=== PATIENT | female | born 1955 | race Caucasian/White ===

== ENCOUNTER 2019-06-05 22:03 | Emergency (ER) | payer MEDICARE, MEDICAID, SELFPAY ==
--- NOTE | ~2019-06-05 | XR_ITS ---
EXAMINATION: XR chest 2V DATE: 06/05/2019 23:19 INDICATION: Chest tightness and shortness of breath TECHNIQUE: AP and lateral views of the chest are obtained. COMPARISON: 12/03/2018 FINDINGS: The lungs are free of acute opacities. There is no pleural effusion or pneumothorax. The ca rdiomediastinal silhouette is normal. There is moderate thoracic spondylosis. IMPRESSION: 1. No acute cardiopulmonary abnormality. Reviewed, dictated and finalized at location A. 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
--- NOTE | ~2019-06-05 | CT_ITS ---
EXAMINATION: CTA chest PE protocol EXAM DATE: 06/06/2019 01:19 INDICATION: Chest pain. Shortness of breath. Recent foot surgery. TECHNIQUE: Spiral CTA of the chest (pulmonary arteries) was performed with 100 cc Omnipaque 350 intr avenous contrast injection. Images were acquired during the pulmonary arterial phase. Coronal maxi mum intensity projection 3D-reconstructions were created by the technologist on dedicated workstation . Axial, coronal and sagittal reformatted images were reviewed. The dose-length product (DLP) for t his examination was 919.12 mGy-cm. The exposure was tailored according to patient size (auto mA exp osure control), and iterative reconstruction (ASIR) was used as additional dose reduction technique. Comparison is made to prior examination from 12/14/2017. FINDINGS: Pulmonary arteries are well opacified and without intraluminal filling defects. No thora cic aortic dissection. The lungs are clear. There are no pleural or pericardial effusions. Trach eobronchial tree is patent. There is no mediastinal, hilar or axillary lymphadenopathy. There is no pneumothorax. Heart normal in size. No evidence of coronary arterial calcification. There are cholecystectomy clips. Small thyroid nodules with calcifications. There is moderate thoracic spondy losis without osteoblastic or osteolytic lesions identified. Moderate sized thoracic endplate osteoph ytes. Tiny tracheal diverticulum. IMPRESSION: 1. No pulmonary emboli or acute cardiothoracic findings. 2. Small thyroid nodules. Reviewed, dictated and finalized at location B. PING PROCESSOR
[2019-06-05 22:05] VITALS: BP 121/71; PULSE 78; RESP 16; TEMP 36.8; O2SAT 99
--- NOTE | 2019-06-05 22:14 | ECG_ITS ---
Measurements Intervals [place] Rate: 80 P: -18 CT: 116 QRS: 5 QRSD: 79 T: 29 QT: 363 QTc: 419 Interpretive Statements SINUS RHYTHM WITH SHORT CT INTERVAL EARLY PRECORDIAL R/S TRANSITION BORDERLINE ECG Electronically Signed On 06-06-2019 6:58:48 TRANSIT PROOF MACHINE OPERATOR by Jonatan Parra D.O.
[2019-06-05 22:47] LABS: Basophils Percent Auto 0.1 % (0.2-1.2); Hematocrit 40.2 % (37.0-47.0); Hemoglobin 12.5 g/dL (12.0-15.0); Immature Granulocyte Absolute 0.05 K/mm3 (0.00-0.031); Immature Granulocyte Percent A 0.3 % (0-0.5); Lymphocytes Absolute Auto 1.57 K/mm3 (0.9-3.2); Lymphocytes Percent Auto 10.2 % (18.3-44.2); Mean Corpuscular HGB Conc 31.1 g/dl (32-36); Mean Corpuscular Hemoglobin 28.5 pg (26-34); Mean Corpuscular Volume 91.6 fl (80-100); Monocytes Absolute Auto 0.9 K/mm3 (0.1-0.6); Monocytes Percent Auto 5.6 % (2.6-8.5); Neutrophils Absolute Auto 12.9 K/mm3 (1.3-6.7); Neutrophils Percent Auto 83.8 % (45.5-73.1); Platelet Count Result 302 k/mm3 (150-375); Red Blood Count 4.39 M/mm3 (4.2-5.4); Red Cell Distribution Width 14.8 % (11.5-14.5); White Blood Count 15.4 K/mm3 (4.5-10.0)
[2019-06-05 22:55] LABS: Prothrombin Time 12.8 Seconds (11.1-14.7)
[2019-06-05 22:56] LABS: Partial Thromboplastin Time 24.3 SECONDS (22.3-36.8)
[2019-06-05 22:59] LABS: Blood Urea Nitrogen 25 mg/dL (7-17); Calcium 9.2 mg/dL (8.4-10.2); Carbon Dioxide 27 mmol/L (22-30); Chloride 103 mmol/L (98-107); Estimated CRCL calculation 90 ml/min; Estimated Glomerular Filt Rate > 60; Glucose 239 mg/dL (65-105); Potassium 4.6 mmol/L (3.4-5.0); Sodium 140 mmol/L (137-145)
[2019-06-05 23:11] LABS: Troponin I < 0.012 ng/mL (0.000-0.034)
[2019-06-06 00:02] VITALS: BP 110/64; PULSE 82; RESP 16; TEMP 36.6; O2SAT 99
--- NOTE | 2019-06-06 00:02 | ED.SOB ---
HPI - SOB/Dyspnea General Chief Complaint: Shortness of Breath/Dyspnea Stated Complaint: cp Time Seen by Provider: 06/06/19 00:02 Source: patient and RN notes reviewed Mode of arrival: other Limitations: no limitations History of Present Illness HPI Narrative: Pt is a 64 y/o female who presents to the ED with c/o SOB that began at 7 PM yesterday after her surgery. Pt states that her sx are worsened when she lays flat. Pt also reports chest pain. She states her pain is worsened whenever she lays flat. She notes that whenever she lays flat, her chest pain becomes heavy. She notes that her pain will last for 5 minutes. Pt has a hx of PE. Pt had two tendons repair surgery on her left leg by Dr. Mensah at [facility]. Pt had to discontinue her Xaralto for a week d/t the surgery. Pt states that she starts her Xarelto tomorrow. MD elicited complaint: shortness of breath (with chest pain) Onset (ago): hour(s) Exacerbating factors: lying flat Associated symptoms: chest pain Related Data Allergies Allergy/AdvReac Type Severity Reaction Status Date / Time lorazepam Allergy Severe Swelling Verified 06/05/19 23:50 metoclopramide Allergy Intermediate Unknown Verified 06/05/19 23:50 levofloxacin Allergy Mild Hives / Verified 06/05/19 23:50 Red Face ceftriaxone Allergy Unknown SOB Verified 06/05/19 23:50 cephalexin Allergy Unknown Unknown Verified 06/05/19 23:50 Cephalosporins Allergy Unknown Unknown Verified 06/05/19 23:50 chlorhexidine Allergy Unknown BLISTERING Verified 06/05/19 23:50 oxycodone AdvReac Unknown Unknown Verified 06/05/19 23:50 CEFTRIAXONE SODIUM Allergy Severe Dyspnea / Uncoded 06/05/19 23:50 SOB Review of Systems Review of Systems: All systems reviewed & are unremarkable except as noted in HPI and below Cardiovascular: Cardiovascular: Reports chest pain Respiratory: Respiratory: Reports dyspnea PMFSH Past Medical History Medical History (Updated 06/06/19 @ 02:19 by Felicitas Arnold MD) Anxiety Breast cancer CHF (congestive heart failure) Depression DVT (deep venous thrombosis) Hypothyroid Kidney stone Multiple thyroid nodules Peripheral neuropathy Pulmonary embolism positive for coagulation workup Restless leg syndrome Sleep apnea with CPAP Type II diabetes mellitus 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) Surgical History Surgical History (Updated 06/06/19 @ 02:19 by Felicitas Arnold MD) H/O hernia repair H/O mastectomy bilateral History of cardiac catheterization no CAD noted History of right oophorectomy History of total right knee replacement Hx of cholecystectomy S/P ureteral stent placement Social History Social History Smoking status: Never smoker Gender identity (if verbalized by the patient): Female Exam Const: General: cooperative, no acute distress and alert Nutritional Appearance: obese Orientation/consciousness: patient oriented x3 Limitations: no limitations HENMT: Mouth: Yes lip normal and Yes moist mucous membranes Throat: other (throat normal) Resp: Effort & Inspection: normal respiratory effort Auscultation: clear to auscultation bilaterally Cardio: Rate: regular rate Rhythm: regular rhythm GI: GI Palp: Yes Soft to palpation and No Tenderness to palpation present (GI) Auscultation: normal bowel sounds Skin: General skin exam: normal color Neuro: General: patient oriented x3 Cognition (Neuro): normal cognition Speech: normal speech Extrem: General: normal to inspection, full ROM and no clubbing, cyanosis or edema Psych: Mental Status: mental status grossly normal Affect: normal affect Attitude: cooperative Course Course Emergency Course: Patient presents with complaints of chest pain and feeling short of breath after having had foot surgery today. Patient has history of pulmonary embolism and is normally on Xarelto. Patient has been off anticoagulation for a week for her foot surgery that she had today. Patient was worried about possibility of
[2019-06-06 01:53] LABS: Troponin I < 0.012 ng/mL (0.000-0.034)
[2019-06-06 02:30] VITALS: BP 112/65; PULSE 71; RESP 16; O2SAT 100
== END 2019-06-06 02:45 | disposition home or self-care (01) ==
PROVIDERS: Emergency Provider Emergency Medicine; PCP Internal Medicine
DX: R07.9 Chest pain, unspecified (principal); F41.9 Anxiety disorder, unspecified; I50.9 Heart failure, unspecified; F32.9 Major depressive disorder, single episode, unspecified; Z86.718 Personal history of other venous thrombosis and embolism; E03.9 Hypothyroidism, unspecified; Z87.442 Personal history of urinary calculi; E11.42 Type 2 diabetes mellitus with diabetic polyneuropathy; Z86.711 Personal history of pulmonary embolism; G25.81 Restless legs syndrome; G47.30 Sleep apnea, unspecified; Z87.440 Personal history of urinary (tract) infections; Z85.3 Personal history of malignant neoplasm of breast; Z90.13 Acquired absence of bilateral breasts and nipples; Z96.651 Presence of right artificial knee joint; Z79.01 Long term (current) use of anticoagulants; Z98.890 Other specified postprocedural states
CPT/HCPCS: 36415; 71046; 71275; 80048; 84484; 85025; 85610; 85730; 93005; 99284; Q9967

== ENCOUNTER 2019-12-27 22:34 | Emergency (ER) | payer MEDICARE, MEDICAID, SELFPAY ==
--- NOTE | ~2019-12-27 | XR_ITS ---
XR chest 2V DATE: 12/27/2019 23:16 INDICATION: Chest pressure/tightness for one day. Upper back pain. History of congestive heart failur e and pulmonary embolism. TECHNIQUE: PA and lateral views COMPARISON: None FINDINGS: Heart size is within normal range. No hilar or mediastinal enlargement. No pulmonary infiltrate or consolidation, pleural effusion or pulmonary vascular congestion or pneumo thorax. Degenerative spurring of the thoracic spine. Surgical clips, right upper quadrant, consistent with cholecystectomy. IMPRESSION: No active cardiopulmonary disease Status post cholecystectomy Reviewed, dictated and finalized at location A.
--- NOTE | ~2019-12-27 | CT_ITS ---
EXAMINATION: CTA chest PE protocol DATE: 12/28/2019 02:19 INDICATION: Chest pain TECHNIQUE: Computed tomography angiography (CTA) of the chest was performed with 100 mL Omnipaque-350 intravenous contrast timed to evaluate the pulmonary arteries. Coronal maximum intensity projection 3D-reconstructions were created by the technologist. The dose-length product (DLP) was 973.06 mGy-cm. Automated exposure control and iterative reconstruction technique were employed. COMPARISON: 06/06/2019 FINDINGS: The pulmonary arteries are well-opacified. No pulmonary embolism is identified. There is mi ld dependent atelectasis. Grouped nodules are present in the medial aspect of the left lower lobe at the site of prior infection. No acute airspace opacities are identified. There is no pleural effusion or pneumothorax. No pathologically enlarged thoracic lymph nodes are identified. The heart size is n ormal. The gallbladder is surgically absent. Small calcified thyroid nodules are stable. There is mod erate thoracic spondylosis. IMPRESSION: 1. No pulmonary embolism or acute cardiopulmonary abnormality. Reviewed, dictated and finalized at location A.
[2019-12-27 22:38] VITALS: BP 143/67; PULSE 98; RESP 22; TEMP 36.5; O2SAT 100
--- NOTE | 2019-12-27 22:45 | ECG_ITS ---
Measurements Intervals [employer] Rate: 96 P: 32 NE: 123 QRS: 1 QRSD: 92 T: 52 QT: 334 QTc: 424 Interpretive Statements SINUS RHYTHM BASELINE ARTIFACT- I, III, AVR, AVL NORMAL ECG Electronically Signed On 12-28-2019 6:47:58 CDT by Jonatan Parra D.O.
[2019-12-27 23:16] LABS: Basophils Percent Auto 0.4 % (0.2-1.2); Eosinophils Absolute Auto 0.3 K/mm3 (0-0.3); Hematocrit 43.8 % (37.0-47.0); Hemoglobin 13.6 g/dL (12.0-15.0); Immature Granulocyte Absolute 0.05 K/mm3 (0.00-0.031); Immature Granulocyte Percent A 0.4 % (0-0.5); Lymphocytes Absolute Auto 3.19 K/mm3 (0.9-3.2); Lymphocytes Percent Auto 28.5 % (18.3-44.2); Mean Corpuscular HGB Conc 31.1 g/dl (32-36); Mean Corpuscular Hemoglobin 28.6 pg (26-34); Mean Platelet Volume 9.9 fl (7.4-10.4); Monocytes Absolute Auto 0.7 K/mm3 (0.1-0.6); Monocytes Percent Auto 6.1 % (2.6-8.5); Neutrophils Absolute Auto 6.9 K/mm3 (1.3-6.7); Neutrophils Percent Auto 61.6 % (45.5-73.1); Platelet Count Result 339 k/mm3 (150-375); Red Blood Count 4.76 M/mm3 (4.2-5.4); Red Cell Distribution Width 14.4 % (11.5-14.5); White Blood Count 11.2 K/mm3 (4.5-10.0)
[2019-12-27 23:27] LABS: INR 1.3; Partial Thromboplastin Time 30.3 SECONDS (22.3-36.8); Prothrombin Time 16.1 Seconds (11.1-14.7)
[2019-12-27 23:31] LABS: Anion Gap 7 mmol/L (8-16); Blood Urea Nitrogen 20 mg/dL (7-17); Calcium 9.7 mg/dL (8.4-10.2); Carbon Dioxide 31 mmol/L (22-30); Chloride 102 mmol/L (98-107); Estimated CRCL calculation 81 ml/min; Estimated Glomerular Filt Rate > 60; Glucose 196 mg/dL (65-105); Potassium 4.5 mmol/L (3.4-5.0); Sodium 140 mmol/L (137-145)
[2019-12-27 23:41] LABS: Troponin I < 0.012 ng/mL (0.000-0.034)
[2019-12-27 23:43] VITALS: BP 141/59; PULSE 93; PULSE 99; RESP 19; TEMP 37.2; O2SAT 100
--- NOTE | 2019-12-28 00:41 | ED.CHESTPAIN ---
HPI - Chest Pain General Chief Complaint: Chest Pain Stated Complaint: upper back pain, cp, sob Time Seen by Provider: 12/28/19 00:24 Source: patient Mode of arrival: ambulatory Limitations: no limitations History of Present Illness HPI narrative: This patient is a 64 year old female with history of morbid obesity, depression, PE, chf who presents for evaluation of upper back pain and chest pain. She states for several weeks she has been dealing with constant nausea and dysphagia . She has been taking zofran intermittently for the nausea. She reports she feels like food causes mid chest pain when she is eating but it does go down. She rarely has vomiting with her nausea. She is scheduled for colonoscopy and upper endoscopy with DR. Jensen in 10 days. She has come to ER today because for 2 days she has been having constant sharp upper back pain. She also reports she feels like she is being squeezed from chest to her back. Related Data Allergies Allergy/AdvReac Type Severity Reaction Status Date / Time lorazepam Allergy Severe Swelling Verified 12/27/19 23:46 metoclopramide Allergy Intermediate Unknown Verified 12/27/19 23:46 levofloxacin Allergy Mild Hives / Verified 12/27/19 23:46 Red Face ceftriaxone Allergy Unknown SOB Verified 12/27/19 23:46 cephalexin Allergy Unknown Unknown Verified 12/27/19 23:46 Cephalosporins Allergy Unknown Unknown Verified 12/27/19 23:46 chlorhexidine Allergy Unknown BLISTERING Verified 12/27/19 23:46 oxycodone AdvReac Unknown Unknown Verified 12/27/19 23:46 CEFTRIAXONE SODIUM Allergy Severe Dyspnea / Uncoded 12/27/19 23:46 SOB Review of Systems Review of Systems: All systems reviewed & are unremarkable except as noted in HPI and below Constitutional: Constitutional: Denies chills and Denies fever(s) Cardiovascular: Cardiovascular: Reports chest pain and Denies radiating jaw, neck or arm pain Gastrointestinal: Gastrointestinal: Denies diarrhea, Reports nausea and Reports vomiting Musculoskeletal: Musculoskeletal: Reports back pain Neurologic: Reports dizziness PMFSH Past Medical History Medical History (Updated 12/28/19 @ 03:39 by Emelyn Mari MD) Anxiety Breast cancer CHF (congestive heart failure) Depression DVT (deep venous thrombosis) Hypothyroid Kidney stone Multiple thyroid nodules Peripheral neuropathy Pulmonary embolism positive for coagulation workup Restless leg syndrome Sleep apnea with CPAP Type II diabetes mellitus 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) Surgical History Surgical History (Updated 06/06/19 @ 02:19 by Felicitas Arnold MD) H/O hernia repair H/O mastectomy bilateral History of cardiac catheterization no CAD noted History of right oophorectomy History of total right knee replacement Hx of cholecystectomy S/P ureteral stent placement Social History Social History Smoking status: Never smoker Gender identity (if verbalized by the patient): Female Exam Const: General: no acute distress and alert Nutritional Appearance: obese Orientation/consciousness: patient oriented x3 HENMT: Head: normocephalic and atraumatic Face and sinus: face symmetric Eyes: Pupils: Equal, round and reactive pupils present EOM: EOMs intact bilaterally Chest: Chest palpation & inspection: normal inspection of the chest Resp: Effort & Inspection: normal respiratory effort and no retractions Auscultation: clear to auscultation bilaterally Cardio: Rate: regular rate Rhythm: regular rhythm GI: GI Palp: Yes Soft to palpation, No Tenderness to palpation present (GI) and No Guarding due to palpation present (GI) Auscultation: normal bowel sounds Skin: General skin exam: normal color Rashes: no rashes Neuro: General: patient oriented x3 and moves all extremities Extrem: General: normal to inspection Course Reevaluation(s) Reevaluation #1: I discussed with patient that no significant abnormalities found. She will follow up wit
[2019-12-28] MEDS: ONDANSETRON INJ 4 MG/2 ML VIAL IV PUSH (01:00)
[2019-12-28] MEDS: PANTOPRAZOLE SODIUM IV 40 MG VIAL IV PUSH (01:00)
[2019-12-28] MEDS: LACTATED RINGERS 1,000 ML 999 ML IV CONT (01:00)
[2019-12-28 01:36] LABS: Alanine Aminotransferase 28 U/L (4-35); Albumin Level 4.3 g/dL (3.5-5.1); Alkaline Phosphatase 101 U/L (38-126); Aspartate Amino Transferase 48 U/L (14-36); Bilirubin,Total 0.5 mg/dL (0.2-1.3); Lipase 91 U/L (23-300); Magnesium 1.8 mg/dL (1.6-2.3)
[2019-12-28 01:37] VITALS: BP 125/81; PULSE 91; RESP 12; O2SAT 99
[2019-12-28 01:46] VITALS: BP 123/76; PULSE 89
[2019-12-28 01:47] VITALS: BP 123/81; PULSE 83
[2019-12-28 01:50] VITALS: BP 141/91; PULSE 102
[2019-12-28] MEDS: BELLADONNA ALK/PHENOB ELIX 10 ML, MAG HYDROX/ALUMINUM HYD/SIMETH 30 ML, LIDOCAINE HCL 2... PO (01:54)
[2019-12-28 02:57] LABS: Troponin I < 0.012 ng/mL (0.000-0.034)
[2019-12-28 03:00] VITALS: BP 145/88; PULSE 87; RESP 19; O2SAT 99
[2019-12-28 03:45] VITALS: BP 133/78; PULSE 77; RESP 17; O2SAT 95
== END 2019-12-28 03:45 | disposition home or self-care (01) ==
PROVIDERS: Emergency Provider General Practice; PCP Internal Medicine
DX: R07.89 Other chest pain (principal); R13.10 Dysphagia, unspecified; E11.42 Type 2 diabetes mellitus with diabetic polyneuropathy; I50.9 Heart failure, unspecified; E66.01 Morbid (severe) obesity due to excess calories; Z68.43 Body mass index [BMI] 50.0-59.9, adult; E03.9 Hypothyroidism, unspecified; Z85.3 Personal history of malignant neoplasm of breast; G47.30 Sleep apnea, unspecified; Z86.718 Personal history of other venous thrombosis and embolism; Z86.711 Personal history of pulmonary embolism; Z87.442 Personal history of urinary calculi; Z87.440 Personal history of urinary (tract) infections; Z90.13 Acquired absence of bilateral breasts and nipples; Z96.651 Presence of right artificial knee joint
CPT/HCPCS: 36415; 71046; 71275; 80048; 80076; 83690; 83735; 84484; 85025; 85380; 85610; 85730; 93005; 96361; 96374; 96375; 99284; A9270; C9113; J0131; J2405; J7120; Q9967

== ENCOUNTER 2020-01-07 00:42 | Outpatient (CLI) | payer MEDICARE, MEDICAID, SELFPAY ==
[2020-01-07 17:26] LABS: SARS-CoV-2 RNA PCR Negative
== END 2020-01-07 00:43 | disposition home or self-care (01) ==
LOC: ANHCOVIDDT 00:43
PROVIDERS: PCP Internal Medicine; Visit Provider Internal Medicine Gastroenterology
DX: Z01.812 Encounter for preprocedural laboratory examination (principal); Z11.59 Encounter for screening for other viral diseases
CPT/HCPCS: 87635; C9803; U0003

== ENCOUNTER 2020-01-09 00:55 | Day surgery (SDC) | payer MEDICARE, MEDICAID, SELFPAY ==
[2020-01-06 15:28] VITALS: BMI 54.8
--- NOTE | 2020-01-08 13:16 | WPDANESEPPF ---
Anes - Initial Pre Proc Eval Procedure: Operation Date: 01/09/20 09:00 Proposed Procedures p Esophagogastroduodenoscopy & Colonoscopy - Genaro Jensen DO Date/Time: 01/08/20 13:16 Surgeon: Genaro Jensen DO Pre Op Diagnosis: dysphagia, altered bowel function Patient Data Age: 64 Gender: F Height: 1.55 m Weight: 131.8 kg Allergies Allergy/AdvReac Type Severity Reaction Status Date / Time ceftriaxone Allergy Severe SOB Verified 01/09/20 07:51 cephalexin Allergy Severe Difficulty Verified 01/09/20 07:51 Breathing Cephalosporins Allergy Severe Difficulty Verified 01/09/20 07:51 Breathing lorazepam Allergy Severe Swelling Verified 01/09/20 07:51 metoclopramide Allergy Intermediate Other Verified 01/09/20 07:51 chlorhexidine Allergy Mild BLISTERING Verified 01/09/20 07:51 levofloxacin Allergy Mild Hives / Verified 01/09/20 07:51 Red Face oxycodone AdvReac Mild Vomiting Verified 01/09/20 07:51 Home Medications Medication Instructions Recorded Confirmed Type ondansetron HCl [Zofran] 4 mg PO Q6H PRN #7 tablet 12/28/19 01/06/20 Rx pantoprazole 40 mg PO HS 28 Days #28 tablet 12/28/19 01/06/20 Rx amitriptyline 25 mg PO DAILY 01/06/20 01/06/20 History enoxaparin 120 mg SUBCUT DAILY 01/06/20 01/06/20 History exemestane 25 mg PO DAILY 01/06/20 01/06/20 History hydrocodone-acetaminophen 1 tablet PO Q6-8H PRN 01/06/20 01/06/20 History insulin glargine [Lantus Solostar 50 unit SUBCUT DAILY 01/06/20 01/06/20 History U-100 Insulin] insulin lispro 26 unit SUBCUT TID 01/06/20 01/06/20 History lisinopril 20 mg PO DAILY 01/06/20 01/06/20 History naloxone [Narcan] 4 mg INTRANASAL PRN PRN 01/06/20 01/06/20 History oxybutynin chloride 5 mg PO BID 01/06/20 01/06/20 History pen needle, diabetic [BD 01/06/20 01/06/20 History Ultra-Fine Short Pen Needle] rivaroxaban [Xarelto] 20 mg PO DAILY 01/06/20 01/06/20 History ropinirole 5 mg PO DAILY 01/06/20 01/06/20 History Patient hx anesthesia problems: none Family hx anesthesia problems: none PMFSH Past Medical History Medical History (Updated 12/29/19 @ 00:00 by Luis Hernandez) Anxiety Breast cancer CHF (congestive heart failure) Depression DVT (deep venous thrombosis) Hypothyroid Kidney stone Multiple thyroid nodules Peripheral neuropathy Pulmonary embolism positive for coagulation workup Restless leg syndrome Sleep apnea with CPAP Type II diabetes mellitus 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) Surgical History Surgical History (Updated 06/06/19 @ 02:19 by Felicitas Arnold MD) H/O hernia repair H/O mastectomy bilateral History of cardiac catheterization no CAD noted History of right oophorectomy History of total right knee replacement Hx of cholecystectomy S/P ureteral stent placement Social History Social History Smoking packs per day: 0.5 Smoking cigarettes per day: 10.0 Years smoked: 3 Smoking pack-years: 1.50 Smoking status: Former smoker Tobacco type: cigarettes Additional smoking assessment comments: SMOKED FOR 3 YEARS Alcohol intake: never Substance use: never Substance use type: does not use Living arrangements: with family Gender identity (if verbalized by the patient): Female Spiritual care concerns: No Anes - Eval Final PreProcedure Day of Procedure 01/08/20 13:16 Patient weight: super morbidly obese Heart: regular rate and rhythm Lungs: clear to auscultation and normal air movement Airway: Mallampati scale class III Neurological: alert and oriented Last oral intake: >/= 8 hours ASA classification: IV Emergent: no Anesthetic plan: proceed Anesthesia type and monitoring: general GIVS and standard monitoring Informed Consent: The patient's anesthetic plan and its attendant risks and benefits were discussed with the patient/family/POA. Questions were solicited and answers provided to the satisfaction of the patient/family/POA.
[2020-01-09 07:44] VITALS: BP 143/90; PULSE 100; RESP 20; TEMP 36.9; O2SAT 99; BMI 56.4
[2020-01-09 08:09] LABS: Glucose Point of Care 113 (65-105)
[2020-01-09] MEDS: LACTATED RINGERS 1,000 ML 150 ML IV CONT (08:13)
[2020-01-09 08:18] LABS: Prothrombin Time 13.3 Seconds (11.1-14.7)
[2020-01-09 08:19] LABS: Partial Thromboplastin Time 30.5 SECONDS (22.3-36.8)
[2020-01-09] MEDS: SIMETHICONE ORAL SUSPENSION 20 MG/0.3 ML 30 ML BOTTLE 1.8 ML PO (08:19)
[2020-01-09] MEDS: ONDANSETRON INJ 4 MG/2 ML VIAL IV PUSH (08:21)
--- NOTE | 2020-01-09 08:33 | PM.IMHP ---
H&P: HPI History of Present Illness Date/Time: 01/09/20 08:33 Chief complaint: dysphagia, altered bowel function Narrative: Reason for visit EGD and colonoscopy. This very pleasant lady seen in consultation at the request of the primary physician. Impression: This very pleasant lady with dysphagia. Will evaluate for underlying ring or stricture. Next patient has been having increasing belching and indigestion. Underlying peptic ulcer disease should be excluded. This may be related to underlying gastroparesis. the may be a component of underlying IBS. Recommendation: EGD and colonoscopy. History: Very pleasant lady's being managed for dysphagia. She complains of dysphagia to solids more so than liquids last 3-4 weeks. She has been having increasing nausea and belching. She describes belching as a indigestion. Vomiting and hematemesis or night. Hematochezia, melena acholic stools night. She has been having abdominal aching at times. This is relieved with defecation. Four weeks prior to defecation pupil is nauseated, diaphoretic and lightheaded. This is relieved after defecation. Previous colonoscopy revealed diverticulosis coli. She is not sure if she has had polyps. Patient has a history of atypical back pain is sharp in nature and radiated chest. Chest pain be described as a discomfort. It was not associated any type of syncope, palpitations, PND, orthopnea or lightheadedness. Pain is not exertional related. Physical examination: General: very pleasant patient in no acute distress. HEENT: Head was normocephalic sclerae is clear mouth without masses neck was supple. Heart: Rate rhythm regular without S3 or S4. Lungs: CTA. Abdomen: Soft with no guarding or rigidity. Bowel sounds were active. Neurologic: Cranial nerves 2 through 12 intact. No focal defects. No clonus. Musculoskeletal system: Revealed no joint tenderness or swelling no muscle atrophy. Extremities: Reveal no significant edema. Skin: Warm and dry with normal turgor. Mental status: intact. Patient is alert and oriented. Review of Systems Review of Systems: All systems reviewed & are unremarkable except as noted in HPI and below [facility] Past Medical History Medical History (Updated 01/09/20 @ 08:32 by Genaro Jensen DO) Anxiety Breast cancer CHF (congestive heart failure) Depression DVT (deep venous thrombosis) Hypothyroid Kidney stone Morbid obesity Multiple thyroid nodules Peripheral neuropathy Pulmonary embolism positive for coagulation workup Restless leg syndrome Sleep apnea with CPAP Type II diabetes mellitus 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) Surgical History Surgical History (Updated 01/09/20 @ 08:32 by Genaro Jensen DO) H/O hernia repair H/O mastectomy bilateral History of cardiac catheterization no CAD noted History of right oophorectomy History of total right knee replacement Hx of cholecystectomy Hx of colonoscopy S/P ureteral stent placement Social History Social History Smoking packs per day: 0.5 Smoking cigarettes per day: 10.0 Years smoked: 3 Smoking pack-years: 1.50 Smoking status: Former smoker Tobacco type: cigarettes Additional smoking assessment comments: SMOKED FOR 3 YEARS Alcohol intake: never Substance use: never Substance use type: does not use Living arrangements: with family Gender identity (if verbalized by the patient): Female Spiritual care concerns: No Meds Home Medications and Allergies Home Medications Medication Instructions Recorded Confirmed Type ondansetron HCl [Zofran] 4 mg PO Q6H PRN #7 tablet 12/28/19 01/06/20 Rx pantoprazole 40 mg PO HS 28 Days #28 tablet 12/28/19 01/06/20 Rx amitriptyline 25 mg PO DAILY 01/06/20 01/06/20 History enoxaparin 120 mg SUBCUT DAILY 01/06/20 01/06/20 History exemestane 25 mg PO DAILY 01/06/20 01/06/20 History hydrocodone-acetaminophen 1 tablet PO Q6-8H PRN 01/06/20 01/06/20 History insulin
--- NOTE | 2020-01-09 09:32 | SUR.OPER ---
EGD ENDED 922 COLONOSCOPY STARTED 927
[2020-01-09 09:48] VITALS: BP 128/98; PULSE 82; RESP 14; O2SAT 99
[2020-01-09 09:58] VITALS: BP 89/47; PULSE 72; RESP 14; O2SAT 99
[2020-01-09 10:08] VITALS: BP 106/68; PULSE 72; RESP 14; O2SAT 99
[2020-01-09 10:08] LABS: Glucose Point of Care 123 (65-105)
[2020-01-09 10:18] VITALS: BP 111/68; PULSE 67; RESP 14; O2SAT 99
== END 2020-01-09 10:36 | disposition home or self-care (01) ==
PROVIDERS: PCP Internal Medicine; Visit Provider Internal Medicine Gastroenterology
PROC: 0DJ08ZZ Inspection of Upper Intestinal Tract, Via Natural or Artificial Opening Endoscopic (ICD-10-PCS; CPT 43235; principal; 2020-01-09 09:00)
DX: R19.4 Change in bowel habit (principal); K64.8 Other hemorrhoids; K57.30 Diverticulosis of large intestine without perforation or abscess without bleeding; R13.10 Dysphagia, unspecified; K31.7 Polyp of stomach and duodenum; K29.80 Duodenitis without bleeding; K29.50 Unspecified chronic gastritis without bleeding; E11.40 Type 2 diabetes mellitus with diabetic neuropathy, unspecified; I50.9 Heart failure, unspecified; G47.33 Obstructive sleep apnea (adult) (pediatric); F41.9 Anxiety disorder, unspecified; E03.9 Hypothyroidism, unspecified; Z79.4 Long term (current) use of insulin; Z79.01 Long term (current) use of anticoagulants; Z85.3 Personal history of malignant neoplasm of breast; Z86.718 Personal history of other venous thrombosis and embolism; Z86.711 Personal history of pulmonary embolism; G25.81 Restless legs syndrome; Z87.891 Personal history of nicotine dependence; E66.01 Morbid (severe) obesity due to excess calories; Z68.43 Body mass index [BMI] 50.0-59.9, adult
CPT/HCPCS: 45380; 43239; 36415; 85610; 85730; 87081; 88305; J2405; J2704; J7120

== ENCOUNTER 2020-01-16 22:37 | Observation (INO) | payer MEDICARE, MEDICAID, SELFPAY ==
--- NOTE | ~2020-01-16 | NM_ITS ---
EXAM: NM gastric emptying study DATE: 01/17/2020 16:18 INDICATION: Upper abdominal pain. Nausea and vomiting. TECHNIQUE: A gastric emptying study was performed using the methodology of Stephany CAZARES, et al. J Nucl Med 2007; 48:568-572. The patient was given a meal consisting of 2 scrambled eggs labeled with 1 mCi Tc-99m sulfur colloid, 2 slices of toast, two packages of jam, and approximately 120 mL of water. Si multaneous anterior and posterior 1-min images of the abdomen were obtained with the patient supine a t multiple time points over a total period of 4 hours. The geometric mean of anterior and posterior v iews was determined, and the percentage retention was calculated for each time point. COMPARISON: CT abdomen and pelvis 01/16/2020 FINDINGS: Gastric retention of the radiotracer-labeled meal was 79%, 50%, and 38% at the 1-hour, 2-h our, and 4-hour time points, respectively. With this technique, apparent rapid gastric emptying is parrish ggested by <30% gastric retention at 1 hour. Delayed gastric emptying is defined by gastric retention of >90% at 1 hour, >60% retention at 2 hours, or >10% retention at 4 hours. IMPRESSION: 1. Delayed gastric emptying. Reviewed, dictated and finalized at location A.
--- NOTE | ~2020-01-16 | CT_ITS ---
EXAMINATION: CT abdomen pelvis w con INDICATION: Upper abdominal pain, nausea and vomiting, upper endoscopy and colonoscopy performed on TECHNIQUE: Computed tomographic images of the abdomen and pelvis were obtained after the administrati on of 100 cc of Omnipaque 350 intravenous contrast. The dose-length product (DLP) was 1444.46 mGy-cm. Automated exposure control and iterative reconstruction technique were employed. COMPARISON: 10/16/2018 FINDINGS: Minimal dependent atelectasis is present in the lung bases. The heart size is normal. Group ed nodules in the medial aspect of the left lower lobe are consistent with prior infection. The gallb ladder is surgically absent. The liver, spleen, pancreas, and adrenal glands are normal. There is an 11 mm cyst of the right kidney. The left kidney is unremarkable. No pathologically enlarged abdominal or pelvic lymph nodes are identified. There is no free intraperitoneal gas or evidence of bowel obst ruction. There are changes of ventral hernia repair. There is moderate lumbar spondylosis. IMPRESSION: 1. No CT correlate for the patient's symptoms. Reviewed, dictated and finalized at location A.
[2020-01-16 22:43] VITALS: BP 140/106; PULSE 106; RESP 16; TEMP 36.2; O2SAT 97
--- NOTE | 2020-01-16 23:03 | ED.ABDPAIN ---
HPI - Abdominal Pain General Chief Complaint: Abdominal Pain <STEPH Champion Last Filed: 01/17/20 02:14> Stated Complaint: I'm throwing up today <STEPH Champion Last Filed: 01/17/20 02:14> Time Seen by Provider: 01/16/20 22:46 <Lila Villela PA-C - Last Filed: 01/17/20 02:14> Source: patient <STEPH Champion Last Filed: 01/17/20 02:14> Mode of arrival: ambulatory <STEPH Champion Last Filed: 01/17/20 02:14> Limitations: no limitations <STEPH Champion Last Filed: 01/17/20 02:14> History of Present Illness HPI narrative: This is a 64 year old female that presents to the ER for abdominal pain worsening today. Reports she recently has had a colonoscopy and endoscopy. Reports since she has been having increasing abdominal discomfort. Reports today she has been vomiting and has been unable to keep anything down. Reports she was started on Flagyl by her GI doctor, Dr. Jensen after the procedures. Reports she also takes pantoprazole daily and Zofran as needed for nausea. Denies fever, diarrhea, hematochezia, dysuria, or hematuria. <STEPH Champion Last Filed: 01/17/20 02:14> Related Data Home Medications: Home Medications Medication Instructions Recorded Confirmed amitriptyline 25 mg PO DAILY 01/06/20 01/17/20 exemestane 25 mg PO DAILY 01/06/20 01/17/20 hydrocodone-acetaminophen 1 tablet PO Q6H PRN 01/06/20 01/17/20 insulin glargine [Lantus Solostar 50 unit SUBCUT DAILY 01/06/20 01/17/20 U-100 Insulin] insulin lispro 26 unit SUBCUT TID 01/06/20 01/17/20 lisinopril 20 mg PO DAILY 01/06/20 01/17/20 naloxone [Narcan] 4 mg INTRANASAL PRN PRN 01/06/20 01/17/20 oxybutynin chloride 5 mg PO BID 01/06/20 01/17/20 pen needle, diabetic [BD 01/06/20 01/17/20 Ultra-Fine Short Pen Needle] rivaroxaban [Xarelto] 20 mg PO DAILY 01/06/20 01/17/20 ropinirole 5 mg PO DAILY 01/06/20 01/17/20 metronidazole 500 mg PO TID 01/17/20 01/17/20 <Lila Villela PA-C - Last Filed: 01/17/20 02:14> Allergies/Adverse Reactions: Allergies Allergy/AdvReac Type Severity Reaction Status Date / Time ceftriaxone Allergy Severe SOB Verified 01/16/20 22:46 cephalexin Allergy Severe Difficulty Verified 01/16/20 22:46 Breathing Cephalosporins Allergy Severe Difficulty Verified 01/16/20 22:46 Breathing lorazepam Allergy Severe Swelling Verified 01/16/20 22:46 metoclopramide Allergy Intermediate Other Verified 01/16/20 22:46 chlorhexidine Allergy Mild BLISTERING Verified 01/16/20 22:46 levofloxacin Allergy Mild Hives / Verified 01/16/20 22:46 Red Face oxycodone AdvReac Mild Vomiting Verified 01/16/20 22:46 <Lila Villela PA-C - Last Filed: 01/17/20 02:14> Review of Systems Review of Systems: Narrative: CONSTITUTIONAL: Denies fever GASTROINTESTINAL: Reports abdominal pain, nausea, vomiting. Denies diarrhea. GENITOURINARY: Denies dysuria or hematuria. <Lila Villela PA-C - Last Filed: 01/17/20 02:14> All systems reviewed & are unremarkable except as noted in HPI and below <Lila Villela PA-C - Last Filed: 01/17/20 02:14> [facility] Past Medical History Medical History: Medical History (Updated 01/17/20 @ 02:14 by Lila Villela PA-C) Anxiety Breast cancer CHF (congestive heart failure) Depression DVT (deep venous thrombosis) Hypothyroid Kidney stone Morbid obesity Multiple thyroid nodules Peripheral neuropathy Pulmonary embolism positive for coagulation workup Restless leg syndrome Sleep apnea with CPAP Type II diabetes mellitus 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) <Lila Villela PA-C - Last Filed: 01/17/20 02:14> Surgical History Surgical History: Surgical History (Updated 01/09/20 @ 08:32 by Genaro Jensen DO) H/O hernia repair H/O mastectomy bilateral History of cardiac catheterization no CAD noted History of right oophorectomy History of total right knee replacement Hx of cholecystectomy Hx
[2020-01-16 23:08] LABS: Basophils Absolute Auto 0.1 K/mm3 (0.0-0.1); Basophils Percent Auto 0.5 % (0.2-1.2); Eosinophils Absolute Auto 0.2 K/mm3 (0-0.3); Eosinophils Percent Auto 1.3 % (0-4.4); Hematocrit 42.5 % (37.0-47.0); Hemoglobin 13.5 g/dL (12.0-15.0); Immature Granulocyte Absolute 0.09 K/mm3 (0.00-0.031); Immature Granulocyte Percent A 0.6 % (0-0.5); Lymphocytes Absolute Auto 3.59 K/mm3 (0.9-3.2); Lymphocytes Percent Auto 23.9 % (18.3-44.2); Mean Corpuscular HGB Conc 31.8 g/dl (32-36); Mean Corpuscular Hemoglobin 29.1 pg (26-34); Mean Corpuscular Volume 91.6 fl (80-100); Mean Platelet Volume 9.7 fl (7.4-10.4); Monocytes Absolute Auto 1.3 K/mm3 (0.1-0.6); Monocytes Percent Auto 8.9 % (2.6-8.5); Neutrophils Absolute Auto 9.8 K/mm3 (1.3-6.7); Neutrophils Percent Auto 64.8 % (45.5-73.1); Platelet Count Result 356 k/mm3 (150-375); Red Blood Count 4.64 M/mm3 (4.2-5.4); Red Cell Distribution Width 14.3 % (11.5-14.5)
[2020-01-16] MEDS: ONDANSETRON INJ 4 MG/2 ML VIAL IV PUSH (23:13)
[2020-01-16] MEDS: SODIUM CHLORIDE 0.9% IV 1,000 ML 999 ML IV CONT (23:14)
[2020-01-16] MEDS: FAMOTIDINE 20 MG/2 ML VIAL IV PUSH (23:14)
[2020-01-16 23:18] LABS: Alanine Aminotransferase 30 U/L (4-35); Albumin Level 4.2 g/dL (3.5-5.1); Alkaline Phosphatase 95 U/L (38-126); Anion Gap 7 mmol/L (8-16); Aspartate Amino Transferase 28 U/L (14-36); Bilirubin,Total 0.5 mg/dL (0.2-1.3); Blood Urea Nitrogen 33 mg/dL (7-17); Carbon Dioxide 28 mmol/L (22-30); Chloride 101 mmol/L (98-107); Estimated Glomerular Filt Rate > 60; Glucose 175 mg/dL (65-105); Lipase 178 U/L (23-300); Potassium 5.3 mmol/L (3.4-5.0); Sodium 136 mmol/L (137-145)
--- NOTE | 2020-01-16 23:27 | ECG_ITS ---
Measurements Intervals [place] Rate: 94 P: 13 LA: 143 QRS: 11 QRSD: 80 T: 39 QT: 336 QTc: 421 Interpretive Statements SINUS RHYTHM NORMAL ECG Electronically Signed On 01-17-2020 6:57:37 CDT by Jonatan Parra D.O.
[2020-01-17 00:38] VITALS: BP 116/68; PULSE 97; RESP 17; O2SAT 100
[2020-01-17 00:43] LABS: Add Urine Microscopic? YES; Appearance Urine Clear (Clear); Bilirubin Urine Negative (Negative); Blood Urine Negative (Negative); Color Urine Yellow (Yellow); Glucose Urine UA Negative (Negative); Ketones Urine Negative (Negative); Leukocyte Esterase Ur Trace LEU/UL (Negative); Mucus Urine Rare /lpf; Nitrate Urine Negative (Negative); Protein Urine Negative (Negative); RBC Urine 0-2 /hpf (0-2); Urobilinogen Urine Negative mg/dL (<2.0); WBC Urine 0-3 /hpf
[2020-01-17 00:44] LABS: Specific Grav Ur 1.033 (1.001-1.035)
[2020-01-17 01:36] LABS: Anion Gap 4 mmol/L (8-16); Blood Urea Nitrogen 31 mg/dL (7-17); Calcium 9.1 mg/dL (8.4-10.2); Carbon Dioxide 27 mmol/L (22-30); Chloride 103 mmol/L (98-107); Estimated Glomerular Filt Rate > 60; Glucose 163 mg/dL (65-105); Potassium 5.2 mmol/L (3.4-5.0); Sodium 134 mmol/L (137-145)
[2020-01-17] MEDS: PROMETHAZINE HCL 25 MG/ML AMPUL 12.5 MG IV PUSH (02:14)
[2020-01-17] MEDS: SODIUM CHLORIDE 0.9% IV 1,000 ML 999 ML IV CONT (02:14)
[2020-01-17 02:29] LABS: Glucose Point of Care 162 (65-105)
[2020-01-17 03:05] VITALS: BP 109/68; PULSE 80; RESP 17; O2SAT 97
--- NOTE | 2020-01-17 03:11 | ADMGEN ---
This patient, Karly Marques, was admitted to 2 Medical Room 244-. Patient/family oriented to hospital policies and general routines including ID bracelet, bed and alarms, visiting hours, pain management, procedures, bathroom and other care routines, personal items, smoking policy, room service/diet, and visiting hours. Valuables list has been completed. Information on how to activate the Rapid Response Team has been discussed. Patient/Family are encouraged to report perceived risks to care and to ask questions if they do not understand what they are told or what they should do.
[2020-01-17 03:25] VITALS: BP 154/72; PULSE 81; RESP 22; TEMP 36.3; O2SAT 99
[2020-01-17 03:26] VITALS: BMI 58.6
[2020-01-17] MEDS: SODIUM CHLORIDE 0.9% IV 1,000 ML 125 ML IV CONT (03:38)
[2020-01-17 04:00] VITALS: PULSE 88; RESP 20; O2SAT 98
[2020-01-17] MEDS: MORPHINE SULFATE (*CRX) 2 MG/ML INJ IV PUSH (04:19)
[2020-01-17 05:34] LABS: Anion Gap 2 mmol/L (8-16); Blood Urea Nitrogen 26 mg/dL (7-17); Calcium 9.1 mg/dL (8.4-10.2); Carbon Dioxide 28 mmol/L (22-30); Chloride 104 mmol/L (98-107); Estimated CRCL calculation 84 ml/min; Estimated Glomerular Filt Rate > 60; Glucose 157 mg/dL (65-105); Potassium 4.8 mmol/L (3.4-5.0); Sodium 134 mmol/L (137-145)
[2020-01-17 05:54] LABS: Glucose Point of Care 148 (65-105)
[2020-01-17] MEDS: metroNIDAZOLE 500 MG/ISO 100ML 500 MG/100 ML BAG 100 MG IVPB ×3 (05:55→21:10)
[2020-01-17 07:09] LABS: Basophils Percent Auto 0.4 % (0.2-1.2); Eosinophils Absolute Auto 0.2 K/mm3 (0-0.3); Eosinophils Percent Auto 1.9 % (0-4.4); Hematocrit 35.7 % (37.0-47.0); Hemoglobin 11.1 g/dL (12.0-15.0); Immature Granulocyte Absolute 0.06 K/mm3 (0.00-0.031); Immature Granulocyte Percent A 0.5 % (0-0.5); Lymphocytes Percent Auto 26.3 % (18.3-44.2); Mean Corpuscular HGB Conc 31.1 g/dl (32-36); Mean Corpuscular Hemoglobin 28.6 pg (26-34); Mean Platelet Volume 9.9 fl (7.4-10.4); Monocytes Percent Auto 8.4 % (2.6-8.5); Neutrophils Absolute Auto 7.1 K/mm3 (1.3-6.7); Neutrophils Percent Auto 62.5 % (45.5-73.1); Platelet Count Result 298 k/mm3 (150-375); Red Blood Count 3.88 M/mm3 (4.2-5.4); Red Cell Distribution Width 14.3 % (11.5-14.5); White Blood Count 11.4 K/mm3 (4.5-10.0)
--- NOTE | 2020-01-17 09:44 | PM.IMHP ---
H&P: HPI History of Present Illness Date/Time: 01/17/20 09:44 Chief complaint: Dehydration, hyperkalemia Narrative: Karly Marques is a 64 year old female with DMII (insulin dependent), breast cancer (s/p mastectomy; on exemestane), hypothyroidism, h/o VTE (on chronic Xarelto) among other comorbid conditions who presented to the ED on 01/15 with complaints of abdominal pain, nausea and vomiting. Patient states she had a colonoscopy and EGD performed by Dr. Jensen on 01/08 and since then was placed on PO Flagyl for 10 days for irritation and bacterial overgrowth. She notes since the procedure she has had progressively worsening bloating and nausea, when yesterday, she developed upper abdominal pain and vomiting. She noted that along with vomiting, she also got the shakes as if her blood sugar was too low, but noted that they were fine ; she also noted slight streaks of blood she thought was due to irritation but no coffee ground emesis. She states her abdominal pain was across her entire abdomen; describes the pain as aching or burning; 7/10 at its worse, 5/10 currently; made worse with bending forward and sometimes associated with eating; zofran helps some what. She felt short of breath at times but felt this was due to her abdomen being bloated/stiff yesterday, restricting her breathing; this has improved. She denies any sick contacts at home. She thought her PCP may have thought this may be gastroparesis, although has not had a confirmatory diagnosis yet, per patient. She also notes not having a BM for 2 days and not passing any gas, but notes her PO intake has been not as ideal as she has hoped these past several days. No other complaints at the moment. Denies f/c/s, recent illnesses, sick contacts at home with similar symptoms, headaches, dizziness, lightheadedness, cp/palpitations, current sob, dysuria, hematuria, cloudy urine, calf pain/swelling. While in the ED, patient found to have stable VS, afebrile with leukocytosis. Lipase was with normal limits. CT abd/pelvis with contrast was grossly unremarkable. Discussed CT images today with Dr. Kidd who noted no abnormalities in the abdominal arteries, particularly the SMA or celiac arteries. Case was discussed with Dr. Jensen in the ED who recommended patient be admitted for observation if symptoms did not improve. Review of Systems Review of Systems: All systems reviewed & are unremarkable except as noted in HPI and below PMFSH Past Medical History Medical History Anxiety Breast cancer CHF (congestive heart failure) Depression DVT (deep venous thrombosis) Hypothyroid Kidney stone Morbid obesity Multiple thyroid nodules Peripheral neuropathy Pulmonary embolism positive for coagulation workup Restless leg syndrome Sleep apnea with CPAP Type II diabetes mellitus 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) Surgical History Surgical History H/O hernia repair H/O mastectomy bilateral History of cardiac catheterization no CAD noted History of right oophorectomy History of total right knee replacement Hx of cholecystectomy Hx of colonoscopy S/P ureteral stent placement Family History Family History (Updated 01/17/20 @ 03:21 by Yudy Vang, RN) Mother Diabetes mellitus Father Prostate carcinoma Sibling Breast cancer Social History Social History Social History: Patient lives at home with daughter, Yunior, whom she designates as her surrogate MDM. Her PCP is Dr. Gale. She wishes to be a Full Code Smoking packs per day: 0.5 Smoking cigarettes per day: 10.0 Years smoked: 3 Smoking pack-years: 1.50 Smoking status: Former smoker Tobacco type: cigarettes Additional smoking assessment comments: SMOKED FOR 3 YEARS Alcohol intake: never Substance use: never Substance use type: does not use Gender i
[2020-01-17] MEDS: PANTOPRAZOLE SODIUM IV 40 MG VIAL IV PUSH (10:20)
[2020-01-17] MEDS: lisinopriL 20 MG TABLET PO (10:21)
[2020-01-17] MEDS: INSULIN GLARGINE (*BKC) 100 UNITS/ML 25 UNITS SUB-Q (10:30)
[2020-01-17 12:21] LABS: Glucose Point of Care 133 (65-105)
[2020-01-17 14:00] VITALS: BP 115/63; PULSE 95; RESP 20; TEMP 36.9; O2SAT 96
--- NOTE | 2020-01-17 14:46 | PM.IMHP ---
H&P: HPI History of Present Illness Date/Time: 01/17/20 14:46 Chief complaint: Dehydration, hyperkalemia Narrative: Reason for consultation abdominal pain. This very pleasant lady seen in consultation at the request of the hospitalist. The patient was examined and chart was reviewed. Impression: Irregular very pleasant lady with increasing abdominal pain and distention. This may be secondary to functional issues. Underlying gastroparesis And arterial overgrowth could be contributing to her symptoms. History of alternating constipation and diarrhea. Is compatible with IBS. Recent biopsies show evidence of possible early lymphocytic colitis / collagenous colitis. Diabetes mellitus type 2. CHF. Anxiety/depression. Breast cancer. Kidney stone. Multiple thyroid nodules with hypothyroidism. History DVT/ PE. Morbid obesity. Peripheral neuropathy. History of breast cancer. LUL on CPAP. RLS. Recommendation: Finished metronidazole for presumed bacterial overgrowth. Gastric emptying study has been ordered and is pending. Advanced diet as tolerated. Fiber and probiotic. History: Very pleasant lady is well known to myself. Approximately 1 week ago she underwent an EGD for dysphagia and a routine screening colonoscopy. The EGD was noted to have H pylori negative gastritis. Her colonoscopy is unremarkable. Random biopsies did reveal possible early lymphocytic / collagenous colitis. The patient usually has complaints of constipation with episodes of diarrhea. She tends to go back and forth. Patient was given some Flagyl at that time for presumed bacterial overgrowth. Since the procedure she has been complaining of increasing nausea and abdominal bloating. The nausea abdominal bloating progressed and eventually the abdominal discomfort became more severe. She had an episode of vomiting. She denies any gross hematemesis. She denies any indigestion, dysphagia, odynophagia or heartburn. She did not have a bowel movement for 2 days. She presented to the emergency room[place] [address] imaging was obtained revealing: FINDINGS: Minimal dependent atelectasis is present in the lung bases. The heart size is normal. Grouped nodules in the medial aspect of the left lower lobe are consistent with prior infection. The gallbladder is surgically absent. The liver, spleen, pancreas, and adrenal glands are normal. There is an 11 mm cyst of the right kidney. The left kidney is unremarkable. No pathologically enlarged abdominal or pelvic lymph nodes are identified. There is no free intraperitoneal gas or evidence of bowel obstruction. There are changes of ventral hernia repair. There is moderate lumbar spondylosis. IMPRESSION: 1. No CT correlate for the patient's symptoms. The patient was given IV fluids as she was somewhat dehydrated. Today the patient is feeling better. She is having much less bloating. She is in the process of getting a gastric emptying study. She had a normal bowel movement earlier today. She denies any hematochezia, melena or acholic stools. Fever, chills or night sweats were denied. Physical examination: General: very pleasant patient in no acute distress. HEENT: Head was normocephalic sclerae is clear mouth without masses neck was supple. Heart: Rate rhythm regular without S3 or S4. Lungs: CTA. Abdomen: Soft with no guarding or rigidity. Bowel sounds were active. The abdomen was obese with slight distention. Neurologic: Cranial nerves 2 through 12 intact. No focal defects. No clonus. Musculoskeletal system: Revealed no joint tenderness or swelling no muscle atrophy. Extremities: Reveal no significant edema. Skin: Warm and dry with normal turgor. Mental status: intact. Patient is alert and oriented. I thank you for allowing me to participate in the care of this most the patient. If I can be of any further service to you please do not hesitat
[2020-01-17] MEDS: rOPINIRole HCL 1 MG TABLET 5 MG PO (17:00)
[2020-01-17 17:13] LABS: Glucose Point of Care 138 (65-105)
[2020-01-17] MEDS: AMITRIPTYLINE HCL 25 MG TABLET PO (17:33)
[2020-01-17] MEDS: HYDROcodone/acetaminophen (*CRX) 7.5-325 MG TABLET 1 TAB PO (17:33)
[2020-01-17] MEDS: RIVAROXABAN 20 MG TABLET PO (17:33)
[2020-01-17] MEDS: OXYBUTYNIN CHLORIDE 5 MG TABLET PO (17:33)
[2020-01-17] MEDS: ONDANSETRON INJ 4 MG/2 ML VIAL IV PUSH (17:34)
[2020-01-17 21:19] VITALS: BP 143/77; PULSE 78; RESP 18; TEMP 36.2; O2SAT 100
[2020-01-17 21:49] LABS: Glucose Point of Care 197 (65-105)
[2020-01-18] MEDS: ONDANSETRON INJ 4 MG/2 ML VIAL IV PUSH (02:16)
[2020-01-18] MEDS: HYDROcodone/acetaminophen (*CRX) 7.5-325 MG TABLET 1 TAB PO ×2 (02:20→09:54)
[2020-01-18 02:55] VITALS: PULSE 79; RESP 18; O2SAT 98
[2020-01-18 05:13] LABS: Hematocrit 38.6 % (37.0-47.0); Hemoglobin 12.1 g/dL (12.0-15.0); Mean Corpuscular HGB Conc 31.3 g/dl (32-36); Mean Corpuscular Hemoglobin 28.7 pg (26-34); Mean Corpuscular Volume 91.5 fl (80-100); Mean Platelet Volume 9.5 fl (7.4-10.4); Platelet Count Result 305 k/mm3 (150-375); Red Blood Count 4.22 M/mm3 (4.2-5.4); Red Cell Distribution Width 14.4 % (11.5-14.5); White Blood Count 12.9 K/mm3 (4.5-10.0)
[2020-01-18 05:17] LABS: Hemoglobin A1C 6.9 % (<5.7)
[2020-01-18 05:27] LABS: Anion Gap 6 mmol/L (8-16); Blood Urea Nitrogen 17 mg/dL (7-17); Calcium 9.3 mg/dL (8.4-10.2); Carbon Dioxide 30 mmol/L (22-30); Chloride 102 mmol/L (98-107); Estimated CRCL calculation 84 ml/min; Estimated Glomerular Filt Rate > 60; Glucose 142 mg/dL (65-105); Magnesium 1.7 mg/dL (1.6-2.3); Potassium 4.5 mmol/L (3.4-5.0); Sodium 138 mmol/L (137-145)
[2020-01-18 05:46] VITALS: BP 136/63; PULSE 63; RESP 18; TEMP 36.1; O2SAT 98
[2020-01-18] MEDS: metroNIDAZOLE 500 MG/ISO 100ML 500 MG/100 ML BAG 100 MG IVPB ×2 (06:14→13:07)
[2020-01-18 08:15] LABS: Glucose Point of Care 110 (65-105)
[2020-01-18] MEDS: PANTOPRAZOLE SODIUM IV 40 MG VIAL IV PUSH (08:20)
[2020-01-18] MEDS: lisinopriL 20 MG TABLET PO (08:20)
[2020-01-18] MEDS: OXYBUTYNIN CHLORIDE 5 MG TABLET PO ×2 (08:20→16:52)
[2020-01-18] MEDS: INSULIN GLARGINE (*BKC) 100 UNITS/ML 25 UNITS SUB-Q (08:34)
[2020-01-18 12:03] LABS: Glucose Point of Care 134 (65-105)
[2020-01-18 14:00] VITALS: BP 111/87; PULSE 72; RESP 18; TEMP 36.6; O2SAT 97
--- NOTE | 2020-01-18 16:26 | PM.DS ---
DS: Admitting Diagnosis Admitting Diagnosis Admitting Diagnosis: Dehydration, hyperkalemia DS: Discharge Diagnosis Discharge Diagnosis (1) Abdominal pain: Code(s): R10.9 - Unspecified abdominal pain Status: Acute Assessment and Plan: Upper abdominal pain in epigastrium with associated bloating, nausea, and vomiting. She had poor PO intake. CT a/p with no actue findins, no evidence of stenosis of celiac or SMA arteries. Lipase wnl. She had EGD and colonoscopy about 1 week ago which revealed gastritis (H. pylori negative). She completed a course of PO Flagyl outpatient per Dr. Jensen for irritation and bacterial overgrowth. She was seen in consultation by Dr. Jensen during her stay. Gastric emptying study performed which showed delayed gastric emptying at the 4 hour gustavo. She was able to advance to a regular diet. She is intolerant to reglan and therefore will continue with ondansetron as needed. We discussed dietary changes including more frequent meals with smaller portions. She was instructed to call Dr. Jensen's office on Monday to obtain follow up. (2) Nausea and vomiting: Qualifiers: Vomiting Intractability: non-intractable Vomiting type: unspecified Qualified Code(s): R11.2 - Nausea with vomiting, unspecified Code(s): R11.2 - Nausea with vomiting, unspecified Status: Acute Assessment and Plan: She complained of nausea and vomiting ongoing for about 1 week, with red streaks noted in emesis per patient which was felt to be due to irritation. EGD performed 1 week ago showing gastritis. Nausea/vomiting resolved. (3) Acute hyperkalemia: Code(s): E87.5 - Hyperkalemia Status: Acute Assessment and Plan: Mild hyperkalemia 5.3 on presentation. Improved with IV fluids. Potassium 4.5 at discharge. (4) Breast cancer: Code(s): C50.919 - Malignant neoplasm of unspecified site of unspecified female breast Status: Acute Assessment and Plan: S/p mastectomy. Patient takes exemestane which she will continue. (5) DVT (deep venous thrombosis): Code(s): I82.409 - Acute embolism and thrombosis of unspecified deep veins of unspecified lower extremity Status: Acute Assessment and Plan: PE/DVT diagnosed over 1 year ago. Takes chronic Xarelto. Continue Xarelto. F/u with PCP for further management (6) Hypothyroid: Code(s): E03.9 - Hypothyroidism, unspecified Status: Acute Assessment and Plan: TSH wnl. Continue home levothyroxine (7) Restless leg syndrome: Code(s): G25.81 - Restless legs syndrome Status: Acute Assessment and Plan: No acute issues. Continue home medications (8) Peripheral neuropathy: Code(s): G62.9 - Polyneuropathy, unspecified Status: Acute Assessment and Plan: No acute issues at this time. Secondary to T2DM. (9) Type II diabetes mellitus: Code(s): E11.9 - Type 2 diabetes mellitus without complications Status: Acute Assessment and Plan: A1c is 6.9 (01/18/20). Blood sugars remained well controlled in the 130-140s during . Insulin regimen was decreased while NPO. She will continue her usual insulin regimen at home. Encouraged her to monitor and record blood sugars at home. DS: Summary Hospital Course Reason for hospitalization: Abdominal pain, nausea, vomiting Hospital Course: Date of admission: 01/16/2020 Date of discharge: 01/18/2020 Karly Marques is a 64 year old female with a history of breast cancer, type 2 DM, LUL, and DVT/PE on xarelto who presented to the emergency department on 01/16/2020 with complaints of abdominal pain, nausea, and vomiting ongoing for 1 week. She is established with Dr. Jensen and recently had colonoscopy and EGD. She completed 10 days of PO Flagyl for gastritis with bacterial overgrowth. She was having trouble tolerating PO intake. At presentation, VSS, she remained afebrile, WBC 11.4, H
[2020-01-18 16:31] LABS: Glucose Point of Care 144 (65-105)
[2020-01-18] MEDS: RIVAROXABAN 20 MG TABLET PO (16:52)
[2020-01-18] MEDS: AMITRIPTYLINE HCL 25 MG TABLET PO (16:52)
[2020-01-18] MEDS: rOPINIRole HCL 1 MG TABLET 5 MG PO (16:53)
== END 2020-01-18 17:20 | disposition home or self-care (01) ==
LOC: ANHED 01-17 02:14 → ANH2MED 01-17 02:39
PROVIDERS: Physician Assistant; Admitting Provider Family Medicine; Emergency Provider Emergency Medicine; PCP Internal Medicine; Visit Provider Physician Assistant
DX: E86.0 Dehydration (principal); R10.13 Epigastric pain; E87.5 Hyperkalemia; R11.2 Nausea with vomiting, unspecified; E66.01 Morbid (severe) obesity due to excess calories; E03.9 Hypothyroidism, unspecified; E11.42 Type 2 diabetes mellitus with diabetic polyneuropathy; G25.81 Restless legs syndrome; I50.9 Heart failure, unspecified; Z79.01 Long term (current) use of anticoagulants; Z96.651 Presence of right artificial knee joint; Z23 Encounter for immunization; Z85.3 Personal history of malignant neoplasm of breast; Z86.718 Personal history of other venous thrombosis and embolism; Z86.711 Personal history of pulmonary embolism; Z90.13 Acquired absence of bilateral breasts and nipples; Z68.43 Body mass index [BMI] 50.0-59.9, adult; Z87.891 Personal history of nicotine dependence; Z79.4 Long term (current) use of insulin
CPT/HCPCS: 36415; 74177; 78264; 80048; 80053; 81001; 82948; 83036; 83605; 83690; 83735; 84443; 85025; 85027; 87040; 90471; 90686; 93005; 96361; 96365; 96366; 96375; 96376; 99285; A9270; A9541; C9113; G0008; G0378; J0131; J1815; J2270; J2405; J2550; J7030; Q9967

== ENCOUNTER 2020-05-19 11:28 | Emergency (ER) | payer MEDICARE, MEDICAID, SELFPAY ==
--- NOTE | 2020-05-19 11:33 | ED.GENADULT ---
HPI - General Adult General Chief complaint: Urogenital-Female Stated complaint: uti Time Seen by Provider: 05/19/20 11:33 Source: patient Mode of arrival: ambulatory Limitations: no limitations History of Present Illness HPI narrative: 64-year-old female patient presents to the [facility] with complaints of urinary symptoms that started about 4 5 days ago but got increasingly worse last night. Patient states she is overall just not been feeling well for the past 4 to 5 days states her sugars have been high recently in the 200s and 1 day last week it was in the 400s. Patient states she has not been as active as she was and thinks that her insulin might need to be increased. Patient states that her urinary symptoms increased worse last night with pain with urination, urgency, frequency and blood in the urine. Patient states she pretty much slept on the toilet all night last night due to her urgency and frequency. Patient denies taking anything for her symptoms since they started. Related Data Home Medications Medication Instructions Recorded Confirmed Lantus Solostar U-100 Insulin 50 unit SUBCUT DAILY 01/06/20 01/17/20 Narcan 4 mg INTRANASAL PRN PRN 01/06/20 01/17/20 Xarelto 20 mg PO DAILY 01/06/20 01/17/20 amitriptyline 25 mg PO DAILY 01/06/20 01/17/20 exemestane 25 mg PO DAILY 01/06/20 01/17/20 insulin lispro 26 unit SUBCUT TID 01/06/20 01/17/20 lisinopril 20 mg PO DAILY 01/06/20 01/17/20 oxybutynin chloride 5 mg PO BID 01/06/20 01/17/20 pen needle, diabetic [BD 01/06/20 01/17/20 Ultra-Fine Short Pen Needle] ropinirole 5 mg PO DAILY 01/06/20 01/17/20 Allergies Allergy/AdvReac Type Severity Reaction Status Date / Time ceftriaxone Allergy Severe SOB Verified 05/19/20 12:03 cephalexin Allergy Severe Difficulty Verified 05/19/20 12:03 Breathing Cephalosporins Allergy Severe Difficulty Verified 05/19/20 12:03 Breathing lorazepam Allergy Severe Swelling Verified 05/19/20 12:03 metoclopramide Allergy Intermediate Other Verified 05/19/20 12:03 chlorhexidine Allergy Mild BLISTERING Verified 05/19/20 12:03 levofloxacin Allergy Mild Hives / Verified 05/19/20 12:03 Red Face oxycodone AdvReac Mild Vomiting Verified 05/19/20 12:03 Review of Systems Review of Systems: Narrative: CONSTITUTIONAL: Denies fever, chills, or sweats. EYES: Denies visual changes, redness, or discharge. ENT: Denies rhinorrhea, congestion, sore throat, or otalgia. CARDIOVASCULAR: Denies chest pain, palpitations, or edema. RESPIRATORY: Denies cough or dyspnea. GASTROINTESTINAL: Denies abdominal pain, nausea, vomiting, or diarrhea. GENITOURINARY: Positive dysuria and hematuria. Positive pain with urination, urgency and frequency. SKIN: Denies rash or itching. MUSCULOSKELETAL: Denies back pain, joint pain, or myalgia. NEUROLOGIC: Denies headache, numbness, or weakness. PSYCHIATRIC: Denies anxiety or depression. FOR[facility]LY [facility], [facility] Past Medical History Medical History Anxiety Breast cancer CHF (congestive heart failure) Collagenous colitis Depression DM type 2 (diabetes mellitus, type 2) DVT (deep venous thrombosis) Hypothyroid IBS (irritable bowel syndrome) Kidney stone Morbid obesity Multiple thyroid nodules LUL on CPAP Peripheral neuropathy Pulmonary embolism positive for coagulation workup RLS (restless legs syndrome) 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) Surgical History Surgical History H/O hernia repair H/O mastectomy bilateral History of cardiac catheterization no CAD noted History of esophagogastroduodenoscopy (EGD) History of right oophorectomy History of total right knee replacement Hx of cholecystectomy Hx of colonoscopy S/P ureteral stent placement Family History Family History Mother Diabetes mellitus Father Prostate carcinoma Sibling Breast cancer Social His
[2020-05-19 11:45] VITALS: BP 140/66; PULSE 98; RESP 20; TEMP 36.7; O2SAT 97
[2020-05-19 12:04] VITALS: BP 140/66; PULSE 98; RESP 20; TEMP 36.7; O2SAT 97
== END 2020-05-19 12:15 | disposition home or self-care (01) ==
PROVIDERS: Emergency Provider Nurse Practitioner Family
DX: N30.01 Acute cystitis with hematuria (principal); Z87.891 Personal history of nicotine dependence; Z85.3 Personal history of malignant neoplasm of breast; E11.42 Type 2 diabetes mellitus with diabetic polyneuropathy; Z86.718 Personal history of other venous thrombosis and embolism; E03.9 Hypothyroidism, unspecified; G47.33 Obstructive sleep apnea (adult) (pediatric); Z86.711 Personal history of pulmonary embolism; G25.81 Restless legs syndrome; E66.01 Morbid (severe) obesity due to excess calories; Z68.43 Body mass index [BMI] 50.0-59.9, adult; Z79.01 Long term (current) use of anticoagulants; F32.9 Major depressive disorder, single episode, unspecified
CPT/HCPCS: 81003; 87077; 87086; 87088; 87186; 99213; G0463

== ENCOUNTER 2020-09-02 22:35 | Observation (INO) | payer MEDICARE, MEDICAID, SELFPAY ==
--- NOTE | ~2020-09-02 | CT_ITS ---
EXAMINATION: CT abdomen pelvis w con DATE: 09/03/2020 01:07 INDICATION: Abdominal pain TECHNIQUE: Computed tomography (CT) of the abdomen and pelvis was performed with 100 mL Omnipaque-350 intravenous contrast. Automated exposure control and iterative reconstruction technique were employe d. The dose-length product was 1511.08 mGy-cm. COMPARISON: CT studies dated 01/16/2020, 06/06/2019 and 10/16/2018 FINDINGS: No interval change in a cluster of a few small noncalcified granulomata at the medial basilar left lo wer lobe likely sequela of pneumonia seen in this location 2 years prior. Heart size is normal. No pe ricardial or pleural effusion. Cholecystectomy clips the gallbladder fossa. Liver, spleen, pancreas, bilateral adrenal glands and left kidney are normal. 1.5 cm right renal cyst. There is mild colonic d iverticulosis with a sigmoid and descending colon predominance. There is no adjacent inflammatory ch eileen to suggest diverticulitis. Small bowel and appendix are normal. Postoperative change of prior ve ntral hernia repair/repairs. Bladder, uterus and left ovary are normal. Right ovary is not visualized and reportedly surgically absent. No free intraperitoneal gas or fluid. No pathologically enlarged a bdominal or pelvic lymphadenopathy. Moderate lumbar spondylosis. There is posterior fusion at L5-S1. IMPRESSION: 1. No acute intra-abdominal/pelvic process. 2. Postoperative change of prior cholecystectomy, ventral hernia repair/repairs and right oophorectom y. 3. Mild diverticulosis. Reviewed, dictated and finalized at location A. IMPRESSION: 1. No acute intra-abdominal/pelvic process. 2. Postoperative change of prior cholecystectomy, ventral hernia repair/repairs and right oophorectomy. 3. Mild diverticulosis.
[2020-09-02 22:39] VITALS: PULSE 102; RESP 18; TEMP 36.9; O2SAT 100
[2020-09-03] VITALS (11 sets, daily range): BP systolic 101–136; BP diastolic 54–93; PULSE 70–91; RESP 15–24; TEMP 36.2–37.2; O2SAT 95–100; BMI 56.7
--- NOTE | 2020-09-03 00:17 | ED.GENADULT ---
HPI - General Adult General Chief complaint: Nausea/Vomiting/Diarrhea Stated complaint: uti, abd and back pain, vomiting Time Seen by Provider: 09/02/20 23:58 History of Present Illness HPI narrative: Patient is 65-year-old female who presents the emergency department with chief complaint of UTI body aches and chills. Patient reports that she noticed that she started having some dysuria and also noticed that she started having body aches and some flank pain patient reports she went to urgent care as she has had prior history of UTIs and was started on oral antibiotics. Patient states that she has been taking the antibiotics and tonight noticed that she started having severe chills and body aches patient reports she took Tylenol around 6 PM and reports that she still has the symptoms at this time patient also reports she is aching in her back and just cannot get comfortable. Patient states she is concerned that she may have a kidney infection Related Data Home Medications Medication Instructions Recorded Confirmed Lantus Solostar U-100 Insulin 50 unit SUBCUT DAILY 01/06/20 01/17/20 Narcan 4 mg INTRANASAL PRN PRN 01/06/20 01/17/20 Xarelto 20 mg PO DAILY 01/06/20 01/17/20 amitriptyline 25 mg PO DAILY 01/06/20 01/17/20 exemestane 25 mg PO DAILY 01/06/20 01/17/20 insulin lispro 26 unit SUBCUT TID 01/06/20 01/17/20 lisinopril 20 mg PO DAILY 01/06/20 01/17/20 oxybutynin chloride 5 mg PO BID 01/06/20 01/17/20 pen needle, diabetic [BD 01/06/20 01/17/20 Ultra-Fine Short Pen Needle] ropinirole 5 mg PO DAILY 01/06/20 01/17/20 Allergies Allergy/AdvReac Type Severity Reaction Status Date / Time ceftriaxone Allergy Severe SOB Verified 05/19/20 12:03 cephalexin Allergy Severe Difficulty Verified 05/19/20 12:03 Breathing Cephalosporins Allergy Severe Difficulty Verified 05/19/20 12:03 Breathing lorazepam Allergy Severe Swelling Verified 05/19/20 12:03 metoclopramide Allergy Intermediate Other Verified 05/19/20 12:03 chlorhexidine Allergy Mild BLISTERING Verified 05/19/20 12:03 levofloxacin Allergy Mild Hives / Verified 05/19/20 12:03 Red Face oxycodone AdvReac Mild Vomiting Verified 05/19/20 12:03 Review of Systems Review of Systems: Narrative: GENERAL: Well-appearing, well-nourished, and in no acute distress. HEAD: Normocephalic, atraumatic. EYES: PERRLA and EOMI. ENT: Nares clear, no rhinorrhea or epistaxis. Mucous membranes moist. NECK: Supple. CHEST: Clear to auscultation. No respiratory distress. HEART: Regular rate and rhythm. No murmur heard. Normal peripheral pulses. ABDOMEN: Soft, nontender, nondistended, normal active bowel sounds. EXTREMITIES: Normal range of motion. No edema. SKIN: Warm, dry, no rash. NEURO: No focal deficits. Alert and oriented x3. PSYCH: Normal mood and affect. PMFSH Past Medical History Medical History Anxiety Breast cancer CHF (congestive heart failure) Collagenous colitis Depression DM type 2 (diabetes mellitus, type 2) DVT (deep venous thrombosis) Hypothyroid IBS (irritable bowel syndrome) Kidney stone Morbid obesity Multiple thyroid nodules LUL on CPAP Peripheral neuropathy Pulmonary embolism positive for coagulation workup RLS (restless legs syndrome) 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) Surgical History Surgical History H/O hernia repair H/O mastectomy bilateral History of cardiac catheterization no CAD noted History of esophagogastroduodenoscopy (EGD) History of right oophorectomy History of total right knee replacement Hx of cholecystectomy Hx of colonoscopy S/P ureteral stent placement Family History Family History Mother Diabetes mellitus Father Prostate carcinoma Sibling Breast cancer Social History Social History Social History: Patien
[2020-09-03] MEDS: ONDANSETRON INJ 4 MG/2 ML VIAL IV PUSH ×4 (00:27→20:37)
[2020-09-03] MEDS: SODIUM CHLORIDE 0.9% IV 1,000 ML 999 ML IV CONT (00:30)
[2020-09-03 00:37] LABS: Basophils Percent Auto 0.3 % (0.2-1.2); Eosinophils Absolute Auto 0.2 K/mm3 (0-0.3); Eosinophils Percent Auto 1.5 % (0-4.4); Hematocrit 43.3 % (37.0-47.0); Hemoglobin 13.7 g/dL (12.0-15.0); Immature Granulocyte Absolute 0.06 K/mm3 (0.00-0.031); Immature Granulocyte Percent A 0.4 % (0-0.5); Lymphocytes Absolute Auto 3.72 K/mm3 (0.9-3.2); Lymphocytes Percent Auto 27.6 % (18.3-44.2); Mean Corpuscular HGB Conc 31.6 g/dl (32-36); Mean Corpuscular Hemoglobin 29.4 pg (26-34); Mean Corpuscular Volume 92.9 fl (80-100); Mean Platelet Volume 9.5 fl (7.4-10.4); Monocytes Percent Auto 7.3 % (2.6-8.5); Neutrophils Absolute Auto 8.5 K/mm3 (1.3-6.7); Neutrophils Percent Auto 62.9 % (45.5-73.1); Platelet Count Result 320 k/mm3 (150-375); Red Blood Count 4.66 M/mm3 (4.2-5.4); Red Cell Distribution Width 13.7 % (11.5-14.5); White Blood Count 13.5 K/mm3 (4.5-10.0)
[2020-09-03 00:38] LABS: Add Urine Microscopic? NO; Appearance Urine Clear (Clear); Bilirubin Urine Negative (Negative); Blood Urine Negative (Negative); Color Urine Yellow (Yellow); Glucose Urine UA Negative (Negative); Ketones Urine Negative (Negative); Leukocyte Esterase Ur Negative LEU/UL (Negative); Nitrate Urine Negative (Negative); Protein Urine Negative (Negative); Specific Grav Ur 1.024 (1.001-1.035); Urobilinogen Urine Negative mg/dL (<2.0)
[2020-09-03 00:45] LABS: Anion Gap 7 mmol/L (8-16); Blood Urea Nitrogen 27 mg/dL (7-17); Calcium 10.7 mg/dL (8.4-10.2); Carbon Dioxide 31 mmol/L (22-30); Chloride 102 mmol/L (98-107); Estimated CRCL calculation 60 ml/min; Estimated Glomerular Filt Rate 50; Glucose 99 mg/dL (65-105); Potassium 4.4 mmol/L (3.4-5.0); Sodium 140 mmol/L (137-145)
[2020-09-03 00:46] LABS: Lactic Acid Reflex 1.2 mmol/L (0.7-2.1)
[2020-09-03 01:06] LABS: Alanine Aminotransferase 24 U/L (4-35); Albumin Level 4.2 g/dL (3.5-5.1); Alkaline Phosphatase 84 U/L (38-126); Aspartate Amino Transferase 29 U/L (14-36); Bilirubin,Total 0.3 mg/dL (0.2-1.3); Lipase 186 U/L (23-300)
[2020-09-03] MEDS: SODIUM CHLORIDE 0.9% IV 1,000 ML 500 ML IV CONT (02:38)
[2020-09-03] MEDS: MORPHINE SULFATE (*CRX) 4 MG/ML INJ IV PUSH ×4 (02:38→20:35)
[2020-09-03] MEDS: SODIUM CHLORIDE 0.9% IV 1,000 ML 125 ML IV CONT (03:30)
--- NOTE | 2020-09-03 03:33 | PM.IMHP ---
H&P: HPI History of Present Illness Date/Time: 09/03/20 03:33 Chief Complaint: Abdominal pain Narrative: This is a 65-year-old female with past medical history significant for obesity depression on type 2 diabetes mellitus recurrent urinary tract infections restless leg syndrome, peripheral neuropathy, obstructive sleep apnea on CPAP, PE, DVT on Xarelto. Patient was seen at our urgent care a day ago due to chills rigors fever pain and burning with urination abdominal pain patient read it was prescribed antibiotics for urinary tract infection but presented to the emergency room after she fell worse fell weak was unable to eat had some nausea and vomiting. Preliminary workup in emergency was unrevealing. Patient has been placed on observation. Review of Systems Review of Systems: Narrative: Patient presented to the emergency room due to nausea vomiting generalized malaise fevers chills abdominal pain urinary tract infection that did not get you better after seeing the doctor at urgent care Constitutional: Constitutional: Reports chills and Reports fever(s) ENT: Denies nasal congestion Cardiovascular: Cardiovascular: Denies chest pain with activity, Denies irregular heart rhythm, Denies lightheadedness and Denies dyspnea on exertion Respiratory: Respiratory: Denies cough Gastrointestinal: Gastrointestinal: Reports abdominal pain, Reports nausea and Reports vomiting Genitourinary: Genitourinary: Reports dysuria and Reports flank pain Musculoskeletal: Musculoskeletal: Denies arthralgias and Denies joint swelling Integumentary/Breasts: Skin/Breast: Denies rash Neurologic: Denies abnormal gait and Denies focal weakness Endocrine: Endocrine: Denies cold intolerance and Denies heat intolerance Hematologic/Lymphatic: Hematologic/Lymphatic: Denies no additional hematologic/lymphatic complaints Allergic/Immunologic: Allergic/Immunologic: Denies no additional allergic/immunologic complaints [facility] Past Medical History Medical History (Updated 09/03/20 @ 03:50 by Saima Coombs MD) Anxiety Breast cancer CHF (congestive heart failure) Collagenous colitis Depression DM type 2 (diabetes mellitus, type 2) DVT (deep venous thrombosis) Hypothyroid IBS (irritable bowel syndrome) Kidney stone Morbid obesity Multiple thyroid nodules LUL on CPAP Peripheral neuropathy Pulmonary embolism positive for coagulation workup RLS (restless legs syndrome) 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) Surgical History Surgical History H/O hernia repair H/O mastectomy bilateral History of cardiac catheterization no CAD noted History of esophagogastroduodenoscopy (EGD) History of right oophorectomy History of total right knee replacement Hx of cholecystectomy Hx of colonoscopy S/P ureteral stent placement Family History Family History Mother Diabetes mellitus Father Prostate carcinoma Sibling Breast cancer Social History Social History Social History: Patient lives at home with daughterYunior, whom she designates as her surrogate MDM. Her PCP is Dr. Gale. She wishes to be a Full Code Smoking packs per day: 0.5 Smoking cigarettes per day: 10.0 Years smoked: 3 Smoking pack-years: 1.50 Smoking status: Former smoker Tobacco type: cigarettes Additional smoking assessment comments: SMOKED FOR 3 YEARS Alcohol intake: never Substance use: never Substance use type: does not use Gender identity (if verbalized by the patient): Female Spiritual care concerns: No Meds Home Medications and Allergies Home Medications Medication Instructions Recorded Confirmed Type pantoprazole 40 mg PO HS 28 Days #28 tablet 12/28/19 01/17/20 Rx Lantus Solostar U-100 Insulin 50 unit SUBCUT DAILY 01/06/20 01/17/20 History Narcan 4 mg INTRANASAL PRN PRN 01/06/20 01/17/20
--- NOTE | 2020-09-03 04:33 | ADMGEN ---
This patient, Karly Marques, was admitted to [facility] Room 310-01. Patient/family oriented to hospital policies and general routines including ID bracelet, bed and alarms, visiting hours, pain management, procedures, bathroom and other care routines, personal items, smoking policy, room service/diet, and visiting hours. Information on how to activate the Rapid Response Team has been discussed. Patient/Family are encouraged to report perceived risks to care and to ask questions if they do not understand what they are told or what they should do.
--- NOTE | 2020-09-03 04:57 | ADMGEN ---
This patient, Karly Marques, was admitted to [facility] Room 310-01 at 0310. Patient/family oriented to hospital policies and general routines including ID bracelet, bed and alarms, visiting hours, pain management, procedures, bathroom and other care routines, personal items, smoking policy, room service/diet, and visiting hours. Information on how to activate the Rapid Response Team has been discussed. Patient/Family are encouraged to report perceived risks to care and to ask questions if they do not understand what they are told or what they should do.
[2020-09-03 12:34] LABS: Glucose Point of Care 116 (65-105)
[2020-09-03 13:11] LABS: CRP 2.5 mg/dL (<1.0)
--- NOTE | 2020-09-03 13:12 | PM.IMPN ---
Progress Note: A&P Assessment and Plan (1) 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): Code(s): N39.0 - Urinary tract infection, site not specified Status: Acute Assessment and Plan: Patient with urine culture in the past that grew E coli sensitive to tobramycin Patient is known to have allergy to cephalosporin and quinolone Received 1 dose of tobramycin and then discontinued as our hospital lab cannot check for tobramycin levels quick enough for the 2nd dose Await urine and blood culture results Started probiotics Continue IV fluids and rehydration efforts Encourage patient to use cranberry extract supplements at home daily Consulted urologist (2) Nausea and vomiting: Qualifiers: Vomiting Intractability: non-intractable Vomiting type: unspecified Qualified Code(s): R11.2 - Nausea with vomiting, unspecified Code(s): R11.2 - Nausea with vomiting, unspecified Status: Acute Assessment and Plan: No current nausea or vomiting today Advance diet as tolerated Supportive care IV fluids at 125 mL an hour, maintenance rate (3) Acute dehydration: Code(s): E86.0 - Dehydration Status: Acute Assessment and Plan: IV fluids at 125 mL an hour, maintenance rate Appears to be improving no nausea vomiting or diarrhea at this time Transferring and changing positions without complaints of dizziness or lightheadedness Creatinine is 1.10 (4) Abdominal pain: Code(s): R10.9 - Unspecified abdominal pain Status: Acute Assessment and Plan: No invasive procedures within the last 3 months and no interventions Started probiotics Consulted urologist Possibly secondary to urinary tract infection or possibly secondary to a local peritonitis from her insulin injections to pannus CT of abdomen and pelvis reviewed, no acute findings Supportive care, ordered oral Tylenol Awaiting blood and urine cultures (5) Type II diabetes mellitus: Code(s): E11.9 - Type 2 diabetes mellitus without complications Status: Acute Assessment and Plan: Restart home meds Accu-Cheks AC and HS Insulin sliding scale as needed Started hypoglycemic precautions as well (6) Peripheral neuropathy: Code(s): G62.9 - Polyneuropathy, unspecified Status: Acute Assessment and Plan: Continue amitriptyline No new or acute concerns Keep glucose levels well controlled (7) Restless leg syndrome: Code(s): G25.81 - Restless legs syndrome Status: Acute Assessment and Plan: Continue ropinirole No new or acute concerns (8) LUL on CPAP: Code(s): G47.33 - Obstructive sleep apnea (adult) (pediatric); Z99.89 - Dependence on other enabling machines and devices Status: Acute Assessment and Plan: Continue CPAP No daytime sleepiness noted during examination No new or acute concerns (9) Pulmonary embolism: Code(s): I26.99 - Other pulmonary embolism without acute cor pulmonale Status: Acute Assessment and Plan: Continue Xarelto No difficulty taking deep breaths during examination No shortness of breath and no chest pain during examination Tolerating room air with activity well Subjective Date/time seen: 09/03/20 13:12 Karly is not feeling well today. She is complaining of lower abdominal pain that is constant, and with no source of pain. It is generalized and diffuse. Worse with palpation of her lower abdomen. She could have some level of peritonitis, since her insulin injections tend to be in her lower abdomen. She is also complaining of left-sided flank pain, noted upon exam is well peer she stated that she started having urinary frequency approximately 3 days ago which worsened into urinary incontinence episodes. She states she has never had this before nor had a urology exam. She went to urgent care and started treating herself at home, using the antibiotic Macrobid. Consulted urologist. Blood cultures are pending I shelly valentine
[2020-09-03 13:53] LABS: Erythrocyte Sedimentation Rate 25 mm/hr (0-20)
[2020-09-03 15:09] LABS: Hemoglobin A1C 8.1 % (<5.7)
[2020-09-03] MEDS: PHENAZOPYRIDINE HCL 100 MG TABLET 200 MG PO (15:20)
--- NOTE | 2020-09-03 16:12 | WPDURCON ---
Assessment and Plan Assessment and plan (1) OAB (overactive bladder): Code(s): N32.81 - Overactive bladder Status: Acute Assessment and Plan: Stop Oxybutynin at home, will start Myrbetriq 25mg. She understands it may take 2-3 weeks to notice any changes. I have no other evidence that her symptoms are caused by an acute problem, as her CT shows normal upper tracts, she has no blood in her urine and no signs of a UTI on her UA. She also has no prolpase on examination today to cause her pelvic pressure and no stones on CT to explain her flank pain. THe other symptoms are of some other etiology and not urologic in nature. We will try to switch her meds for OAB and see if this improves her frequency, incontinence and urgency. (2) Flank pain: Code(s): R10.9 - Unspecified abdominal pain Status: Acute Assessment and Plan: Not of urologic origin. (3) Pelvic pain: Code(s): R10.2 - Pelvic and perineal pain Status: Acute Assessment and Plan: No of urologic origin. (4) Frequent UTI: Code(s): N39.0 - Urinary tract infection, site not specified Status: Acute Assessment and Plan: Follow up in the office with Dr. Reddy for a cysto scope, upper tracts are normal on CT. (5) Atrophic vaginitis: Code(s): N95.2 - Postmenopausal atrophic vaginitis Status: Acute Assessment and Plan: D/t her history of DVT and Breast Cancer she is not a candidate for Estrace cream vaginally. Apply A&D ointment vaginally to affected area twice daily PRN for the vaginal burning. Urology Consult Note HPI Date Seen: 09/03/20 Requesting Physician: Brittney Gonzalez NP Primary Care Provider: PHYSICIAN NOT ON STAFF Consult Narrative Narrative: Karly Marques is a 65 year old female who presents to the ER yesterday for c/o dysuria, frequency, nausea, vomiting and acute onset of incontinence x 5 days ago. She also states she has flank pain and pelvic pressure. She went to [facility] a few days ago and was given an antibiotic which didn't help her. She does take Oxybutynin 10mg daily at home, but states she has taken it for years and it has helped her until the past week when her symptoms have returned. Her creatinine is slightly elevated at 1.10, WBC is also slightly elevated at 13.5, she is afebrile and her UA is normal. A urine culture is pending at this time. Her CT scan abdomen and pelvis shows no urologic abnormality. She has had one urine culture that grew E-Coli in 04/2020 at [place]. She states she has had many UTI's but all of them were treated at [facility] in [place]. She does have a history of kidney stones, although none are currently present. She denies an obvious prolpase. Review of Systems Cardiovascular: Cardiovascular: Denies chest pain Respiratory: Respiratory: Reports no additional respiratory complaints Gastrointestinal: Gastrointestinal: Reports abdominal pain, Reports nausea and Reports vomiting Genitourinary: Genitourinary: Denies hematuria, Reports nocturia, Reports dysuria, Reports pelvic pain, Reports flank pain, Reports urinary incontinence, Denies urinary hesitancy, Reports urinary urgency, Denies vaginal discharge, Denies vaginal odor and Denies vaginal pruritus PMFSH Past Medical History Medical History Anxiety Breast cancer CHF (congestive heart failure) Collagenous colitis Depression DM type 2 (diabetes mellitus, type 2) DVT (deep venous thrombosis) Hypothyroid IBS (irritable bowel syndrome) Kidney stone Morbid obesity Multiple thyroid nodules LUL on CPAP Peripheral neuropathy Pulmonary embolism positive for coagulation workup RLS (restless legs syndrome) 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) Surgical History Surgical History H/O hernia repair H/O mastectomy bilateral History of cardiac catheteriza
[2020-09-03 17:05] LABS: Glucose Point of Care 105 (65-105)
[2020-09-03] MEDS: SACCHAROMYCES BOULARDII 250 MG CAPSULE PO (17:16)
[2020-09-03] MEDS: RIVAROXABAN 20 MG TABLET PO (17:16)
[2020-09-03] MEDS: rOPINIRole HCL 1 MG TABLET 5 MG PO (20:58)
[2020-09-03] MEDS: AMITRIPTYLINE HCL 25 MG TABLET PO (20:58)
[2020-09-04 06:00] VITALS: BP 100/64; PULSE 67; RESP 22; TEMP 36.6; O2SAT 100
[2020-09-04] MEDS: ACETAMINOPHEN 500 MG TABLET 1000 MG PO (06:37)
[2020-09-04] MEDS: SODIUM CHLORIDE 0.9% IV 1,000 ML 125 ML IV CONT (06:39)
[2020-09-04] MEDS: INSULIN GLARGINE (*BKC) 100 UNITS/ML 50 UNITS SUB-Q (08:20)
[2020-09-04] MEDS: MIRABEGRON 25 MG ER TABLET PO (08:21)
[2020-09-04] MEDS: SACCHAROMYCES BOULARDII 250 MG CAPSULE PO (08:21)
[2020-09-04] MEDS: AMITRIPTYLINE HCL 25 MG TABLET PO (08:21)
[2020-09-04] MEDS: lisinopriL 20 MG TABLET PO (08:22)
[2020-09-04] MEDS: ONDANSETRON HCL ODT 4 MG TABLET PO (08:44)
[2020-09-04] MEDS: MORPHINE SULFATE (*CRX) 4 MG/ML INJ IV PUSH (08:45)
[2020-09-04 10:03] LABS: IFOB Positive Control Positive; Immunochemical Fecal Occult Bl Negative (N)
[2020-09-04 12:23] LABS: Hematocrit 40.1 % (37.0-47.0); Hemoglobin 12.6 g/dL (12.0-15.0); Mean Corpuscular HGB Conc 31.4 g/dl (32-36); Mean Corpuscular Hemoglobin 29.2 pg (26-34); Mean Platelet Volume 9.4 fl (7.4-10.4); Platelet Count Result 251 k/mm3 (150-375); Red Blood Count 4.31 M/mm3 (4.2-5.4); Red Cell Distribution Width 13.7 % (11.5-14.5)
[2020-09-04 12:40] LABS: CRP 3.4 mg/dL (<1.0)
[2020-09-04 12:50] LABS: Erythrocyte Sedimentation Rate 39 mm/hr (0-20)
[2020-09-04 13:03] LABS: Glucose Point of Care 104 (65-105)
[2020-09-04 14:00] VITALS: BP 112/56; PULSE 80; RESP 20; TEMP 36.1; O2SAT 97
[2020-09-04 14:14] LABS: Glucose Point of Care 119 (65-105)
--- NOTE | 2020-09-04 16:02 | PM.DS ---
DS: Admitting Diagnosis Admitting Diagnosis Admitting Diagnosis: N/V/Abdominal Pain DS: Discharge Diagnosis Discharge Diagnosis (1) 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): Code(s): N39.0 - Urinary tract infection, site not specified Status: Acute Assessment and Plan: Patient with urine culture in the past that grew E coli sensitive to tobramycin Patient is known to have allergy to cephalosporin and quinolone Received 1 dose of tobramycin and then discontinued as our hospital lab cannot check for tobramycin levels quick enough for the 2nd dose - stopped Antibitiocs - as UA was clear. Urine and blood culture pending. Started probiotics Completed rehydration with IV fluids - tolerating Oral fluids well. Encourage patient to use cranberry extract supplements at home daily F/U with urologist after discharge. (2) Nausea and vomiting: Qualifiers: Vomiting Intractability: non-intractable Vomiting type: unspecified Qualified Code(s): R11.2 - Nausea with vomiting, unspecified Code(s): R11.2 - Nausea with vomiting, unspecified Status: Acute Assessment and Plan: No current nausea or vomiting since admission Diet tolerated well Supportive care oral hdryation tolerated well (3) Acute dehydration: Code(s): E86.0 - Dehydration Status: Acute Assessment and Plan: completed IVF hydration Appears to be improving no nausea vomiting or diarrhea since admission Transferring and changing positions without complaints of dizziness or lightheadedness vital signs have been stable. Creatinine is 1.10 At discharge, advised patient to F/U with PCP. (4) Abdominal pain: Code(s): R10.9 - Unspecified abdominal pain Status: Acute Assessment and Plan: RESOLVED. No invasive procedures within the last 3 months and no interventions Started probiotics Consulted urologist - atropic vaginitis and urinary retention. Possibly secondary to local peritonitis/soreness from her insulin injections to pannus OR Gastroparesis related (as she has a history of this as well) OR atropic vaginitis OR urinary retention. CT of abdomen and pelvis reviewed, no acute findings Supportive care, ordered oral Tylenol blood and urine cultures pending Instructed patient to increase ambulation and to ambulate about her hospital room every hour Patient denies abdominal pain today - improved. (5) Type II diabetes mellitus: Code(s): E11.9 - Type 2 diabetes mellitus without complications Status: Acute Assessment and Plan: Restart home meds Accu-Cheks AC and HS Insulin sliding scale as needed Started hypoglycemic precautions as well increase activity and exercise - stated that she will be working out with swimming class at local gym Work to get better Control of Glucose Levels: DAILY - track your Macros (which includes your Carbs and Calories) using free My Fitness Pal or some form of tracker. This will help you to make better food and beverage choices. Discuss and set your goals with your Pad Tufter and/or Silk Soaker. (6) Peripheral neuropathy: Code(s): G62.9 - Polyneuropathy, unspecified Status: Acute Assessment and Plan: Continue amitriptyline No new or acute concerns Keep glucose levels well controlled see DM plan (7) Restless leg syndrome: Code(s): G25.81 - Restless legs syndrome Status: Acute Assessment and Plan: Continue ropinirole No new or acute concerns (8) LUL on CPAP: Code(s): G47.33 - Obstructive sleep apnea (adult) (pediatric); Z99.89 - Dependence on other enabling machines and devices Status: Acute Assessment and Plan: Continue CPAP No daytime sleepiness noted during examination No new or acute concerns (9) Pulmonary embolism: Code(s): I26.99 - Other pulmonary embolism without acute cor pulmonale Status: Acute Assessment and Plan: Continue Xarelto No difficulty taking deep
[2020-09-04 18:04] LABS: Glucose Point of Care 137 (65-105)
--- NOTE | 2020-09-07 09:41 | PC.NURSE ---
Urine cx is negative.
--- NOTE | 2020-09-11 12:49 | PC.NURSE ---
Blood cx are negative.
== END 2020-09-04 16:22 | disposition home or self-care (01) ==
LOC: ANHED 09-03 00:11 → ANH3MEDSUR 09-03 02:57
PROVIDERS: Nurse Practitioner; Physician Assistant; Admitting Provider Internal Medicine; Emergency Provider Emergency Medicine; Visit Provider Family Medicine
DX: N39.0 Urinary tract infection, site not specified (principal); E86.0 Dehydration; R11.2 Nausea with vomiting, unspecified; E11.42 Type 2 diabetes mellitus with diabetic polyneuropathy; G47.33 Obstructive sleep apnea (adult) (pediatric); G25.81 Restless legs syndrome; Z79.01 Long term (current) use of anticoagulants; Z79.4 Long term (current) use of insulin; Z85.3 Personal history of malignant neoplasm of breast; Z86.711 Personal history of pulmonary embolism; Z87.891 Personal history of nicotine dependence
CPT/HCPCS: 36415; 74177; 80048; 80076; 80200; 81003; 82274; 82948; 83036; 83605; 83690; 85025; 85027; 85652; 86140; 87040; 87086; 96361; 96374; 96375; 96376; 99285; A9270; G0378; J0131; J1815; J2270; J2405; J3260; J7030; Q9967

== ENCOUNTER 2020-10-22 09:39 | Emergency (ER) | payer MEDICARE, MEDICAID, SELFPAY ==
--- NOTE | ~2020-10-22 | XR_ITS ---
EXAMINATION: XR chest 1V portable DATE: 10/22/2020 10:00 INDICATION: Shortness of breath. TECHNIQUE: A single frontal view of the chest was obtained. COMPARISON: Chest 2 views 12/27/2019 FINDINGS: The chest demonstrates clear lungs without pneumonia, pleural effusion, or pneumothorax. Th e heart size is normal. IMPRESSION: 1. No acute cardiopulmonary disease. Reviewed, dictated and finalized at location A.
[2020-10-22 09:36] VITALS: BP 128/69; PULSE 79; RESP 17; TEMP 36.6; O2SAT 99
--- NOTE | 2020-10-22 09:47 | ECG_ITS ---
Measurements Intervals [place] Rate: 75 P: 34 NC: 137 QRS: -2 QRSD: 93 T: 29 QT: 374 QTc: 420 Interpretive Statements SINUS RHYTHM BASELINE ARTIFACT- I, II, AVR, AVL NORMAL ECG Electronically Signed On 10-22-2020 11:31:41 CDT by Jonatan Parra D.O.
[2020-10-22 09:50] VITALS: PULSE 79
--- NOTE | 2020-10-22 09:53 | ED.GENADULT ---
HPI - General Adult General Chief complaint: Shortness of Breath/Dyspnea Stated complaint: SOB Time Seen by Provider: 10/22/20 09:42 Source: patient, EMS and RN notes reviewed Mode of arrival: EMS Limitations: no limitations History of Present Illness HPI narrative: Patient is 65 years old white female lives with her daughter came to the emergency room by ambulance complaining of shortness of breath for weeks probably more than 2 months. Was seen by her family physician 2 weeks ago without any specific diagnosis or new medications scheduled to see a specialist at [facility] including GI, oncologist and stack attendant. Patient reported the shortness of breath is getting worse over the last 2 days. Patient denies any fever, chills, nausea, vomiting. Patient reports a history of gastroparesis with intermittent difficult to keep food down. Also history of deep vein thrombosis and pulmonary embolism, currently on Xarelto. Past medical history significant for diabetes, hypertension, mastectomy 6 years ago, currently on hormone treatment, pulmonary embolism and deep vein thrombosis, history of congestive heart failure 8 years ago, currently not on any diuretics.. Patient is fully vaccinated for COVID-19 Related Data Home Medications Medication Instructions Recorded Confirmed Lantus Solostar U-100 Insulin 50 unit SUBCUT DAILY 01/06/20 09/03/20 Xarelto 20 mg PO DAILY 01/06/20 09/03/20 amitriptyline 25 mg PO BID 01/06/20 09/03/20 exemestane 25 mg PO DAILY 01/06/20 09/03/20 insulin lispro 26 unit SUBCUT TID 01/06/20 09/03/20 lisinopril 20 mg PO DAILY 01/06/20 09/03/20 pen needle, diabetic [BD 01/06/20 01/17/20 Ultra-Fine Short Pen Needle] ropinirole 5 mg PO HS 01/06/20 09/03/20 ondansetron HCl 4 mg PO PRN PRN 09/03/20 09/03/20 Allergies Allergy/AdvReac Type Severity Reaction Status Date / Time ceftriaxone Allergy Severe SOB Verified 10/22/20 09:51 cephalexin Allergy Severe Difficulty Verified 10/22/20 09:51 Breathing Cephalosporins Allergy Severe Difficulty Verified 10/22/20 09:51 Breathing lorazepam Allergy Severe Swelling Verified 10/22/20 09:51 metoclopramide Allergy Intermediate Other Verified 10/22/20 09:51 chlorhexidine Allergy Mild BLISTERING Verified 10/22/20 09:51 levofloxacin Allergy Mild Hives / Verified 10/22/20 09:51 Red Face trazodone Allergy Swelling Verified 10/22/20 09:51 of Lip/Tongue/Throat oxycodone AdvReac Mild Vomiting Verified 10/22/20 09:51 Review of Systems Review of Systems: Narrative: CONSTITUTIONAL: Denies fever, chills, or sweats. EYES: Denies visual changes, redness, or discharge. ENT: Denies rhinorrhea, congestion, sore throat, or otalgia. CARDIOVASCULAR: Denies chest pain, palpitations, or edema. RESPIRATORY: Denies cough or dyspnea. GASTROINTESTINAL: Denies abdominal pain, nausea, vomiting, or diarrhea. GENITOURINARY: Denies dysuria or hematuria. SKIN: Denies rash or itching. MUSCULOSKELETAL: Denies back pain, joint pain, or myalgia. NEUROLOGIC: Denies headache, numbness, or weakness. PSYCHIATRIC: Denies anxiety or depression. [facility] Past Medical History Medical History Anxiety Breast cancer CHF (congestive heart failure) Collagenous colitis Depression DM type 2 (diabetes mellitus, type 2) DVT (deep venous thrombosis) Hypothyroid IBS (irritable bowel syndrome) Kidney stone Morbid obesity Multiple thyroid nodules LUL on CPAP Peripheral neuropathy Pulmonary embolism positive for coagulation workup RLS (restless legs syndrome) 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) Surgical History Surgical History H/O hernia repair H/O mastectomy bilateral History of cardiac catheterization no CAD noted History of esophagogastroduodenoscopy (EGD) History of right oophorectomy History of total right knee replacement Hx of cholecystectomy Hx of colonoscopy S/P ureteral s
[2020-10-22 09:58] LABS: Glucose Point of Care 222 mg/dl (65-105)
[2020-10-22 10:28] LABS: Basophils Percent Auto 0.5 % (0.2-1.2); Eosinophils Absolute Auto 0.2 K/mm3 (0-0.3); Eosinophils Percent Auto 1.9 % (0-4.4); Hematocrit 44.5 % (37.0-47.0); Hemoglobin 13.7 g/dL (12.0-15.0); Immature Granulocyte Absolute 0.04 K/mm3 (0.00-0.031); Immature Granulocyte Percent A 0.5 % (0-0.5); Lymphocytes Absolute Auto 1.83 K/mm3 (0.9-3.2); Lymphocytes Percent Auto 21.5 % (18.3-44.2); Mean Corpuscular HGB Conc 30.8 g/dl (32-36); Mean Corpuscular Hemoglobin 29.1 pg (26-34); Mean Corpuscular Volume 94.7 fl (80-100); Mean Platelet Volume 10.6 fl (7.4-10.4); Monocytes Absolute Auto 0.5 K/mm3 (0.1-0.6); Monocytes Percent Auto 5.4 % (2.6-8.5); Neutrophils Percent Auto 70.2 % (45.5-73.1); Platelet Count Result 240 k/mm3 (150-375); Red Cell Distribution Width 13.9 % (11.5-14.5); White Blood Count 8.5 K/mm3 (4.5-10.0)
[2020-10-22 10:29] LABS: Alveolar/Arterial O2 Gradient 36.2 mmHg; Base Excess ABG 0.1 mEq/l (+/-2.0); Fractional Inspired Oxygen 21 %; HCO3 ABG 24.3 mEq/l (22.0-26.0); Oxygen Content ABG 17.7 %vol (16.0-22.0); Oxygen Saturation ABG 93.9 % (95.0-100.0); Oxyhemoglobin 93.1 % THb (90.0-100.0); PCO2 ABG 38.4 mmHg (35.0-45.0); PO2 ABG 67.5 mmHg (80.0-100.0); PO2 FiO2 Ratio Arterial Blood 3.21 %; Total Hemoglobin 13.5 g/dL (12.0-18.0)
[2020-10-22 10:30] LABS: Device ROOM AIR; Site Drawn RIGHT BRACHIAL
[2020-10-22 10:46] LABS: Alanine Aminotransferase 23 U/L (4-35); Albumin Level 4.6 g/dL (3.5-5.1); Alkaline Phosphatase 79 U/L (38-126); Anion Gap 11 mmol/L (8-16); Aspartate Amino Transferase 34 U/L (14-36); Bilirubin,Total 0.7 mg/dL (0.2-1.3); Blood Urea Nitrogen 17 mg/dL (7-17); Calcium 10.1 mg/dL (8.4-10.2); Carbon Dioxide 23 mmol/L (22-30); Chloride 103 mmol/L (98-107); Estimated CRCL calculation 91 ml/min; Estimated Glomerular Filt Rate > 60; Glucose 181 mg/dL (65-105); Potassium 4.1 mmol/L (3.4-5.0); Sodium 137 mmol/L (137-145)
[2020-10-22 10:54] LABS: NT Pro B Type Natriuretic Pept 53 pg/mL (5-100)
[2020-10-22 10:59] VITALS: BP 119/72; PULSE 68; RESP 20; O2SAT 100
[2020-10-22 11:08] LABS: Add Urine Microscopic? YES; Appearance Urine Clear (Clear); Bilirubin Urine Negative (Negative); Blood Urine 1+ (Negative); Color Urine Yellow (Yellow); Glucose Urine UA 1+ mg/dL (Negative); Ketones Urine Negative (Negative); Leukocyte Esterase Ur Negative LEU/UL (Negative); Mucus Urine Rare /lpf; Nitrate Urine Negative (Negative); Protein Urine Negative (Negative); RBC Urine 0-2 /hpf (0-2); Specific Grav Ur 1.014 (1.001-1.035); Squamous Epithelial Cell Urine Rare /hpf (Few); Urobilinogen Urine Negative mg/dL (<2.0); WBC Urine 0-3 /hpf
[2020-10-22 11:25] LABS: INR 1.9; Prothrombin Time 21.3 Seconds (11.1-14.7)
[2020-10-22 11:26] LABS: Partial Thromboplastin Time 35.4 SECONDS (22.3-36.8)
[2020-10-22 11:28] LABS: D Dimer 0.29 ug/mL (<0.48)
== END 2020-10-22 11:33 | disposition home or self-care (01) ==
PROVIDERS: Emergency Provider Emergency Medicine; PCP Internal Medicine
DX: R06.02 Shortness of breath (principal); F41.9 Anxiety disorder, unspecified; Z85.3 Personal history of malignant neoplasm of breast; I50.9 Heart failure, unspecified; F32.9 Major depressive disorder, single episode, unspecified; E11.9 Type 2 diabetes mellitus without complications; E03.9 Hypothyroidism, unspecified; Z79.01 Long term (current) use of anticoagulants; Z79.4 Long term (current) use of insulin
CPT/HCPCS: 36415; 36600; 71045; 80053; 81001; 82805; 82948; 83880; 85025; 85380; 85610; 85730; 93005; 99284

== ENCOUNTER 2020-12-01 12:21 | Outpatient (CLI) | payer MEDICARE, MEDICAID, SELFPAY ==
--- NOTE | ~2020-12-01 | XR_ITS ---
EXAMINATION: XR sacroiliac joints min 3V DATE: 12/01/2020 13:12 INDICATION: Chronic back pain. Left breast cancer. TECHNIQUE: 3 views of the sacroiliac joints were obtained. COMPARISON: Pelvis and left hip radiographs 05/31/2018, CT abdomen and pelvis 09/03/2020 FINDINGS: Bone alignment is normal. No fracture. There is severe osteoarthritis of the sacroiliac tiny nts. Osteitis pubis is noted. The hip joint spaces are normal. There is moderate lumbar spondylosis. Surgical clips overlie the pelvis. IMPRESSION: 1. Stable severe osteoarthritis of the sacroiliac joints. 2. Stable osseous pubis. Reviewed, dictated and finalized at location A.
== END 2020-12-01 12:22 | disposition home or self-care (01) ==
PROVIDERS: PCP Internal Medicine; Visit Provider Internal Medicine Medical Oncology
DX: M89.8X9 Other specified disorders of bone, unspecified site (principal); M53.3 Sacrococcygeal disorders, not elsewhere classified
CPT/HCPCS: 72202

== ENCOUNTER 2020-12-15 15:40 | Emergency (ER) | payer MEDICARE, MEDICAID, SELFPAY ==
[2020-12-15 15:49] VITALS: BP 130/77; PULSE 100; RESP 20; TEMP 37.3; O2SAT 97
--- NOTE | 2020-12-15 16:46 | PC.NURSE ---
no answer when called @[id number]
== END 2020-12-15 16:46 | disposition left against medical advice (07) ==
LOC: ANHED 16:54
DX: Z53.21 Procedure and treatment not carried out due to patient leaving prior to being seen by health care provider (principal)
CPT/HCPCS: 99199

== ENCOUNTER 2021-03-14 08:25 | Emergency (ER) | payer MEDICARE, MEDICAID, SELFPAY ==
[2021-03-14 08:32] VITALS: BP 140/79; PULSE 88; RESP 18; O2SAT 100
--- NOTE | 2021-03-14 08:51 | ED.ALLEREA ---
HPI - Allergic Reaction General Chief complaint: Allergic Reaction Stated complaint: tongue swollen Time Seen by Provider: 03/14/21 08:32 Source: patient Mode of arrival: ambulatory Limitations: no limitations History of Present Illness HPI narrative: Patient is a 65-year-old female complaining of tongue swelling that started this morning, I woke up with it took Benadryl and states that the swelling has gone down. Patient states that she was recently started on antibiotics 3 days ago, Bactrim, due to up back stimulator for pain that was recently placed my doctor told me to prevent infection . Denies any throat swelling, shortness of breath, extremity swelling, or rash. Related Data Home Medications Medication Instructions Recorded Confirmed Lantus Solostar U-100 Insulin 50 unit SUBCUT DAILY 01/06/20 09/03/20 Xarelto 20 mg PO DAILY 01/06/20 09/03/20 amitriptyline 25 mg PO BID 01/06/20 09/03/20 exemestane 25 mg PO DAILY 01/06/20 09/03/20 insulin lispro 26 unit SUBCUT TID 01/06/20 09/03/20 lisinopril 20 mg PO DAILY 01/06/20 09/03/20 pen needle, diabetic [BD 01/06/20 01/17/20 Ultra-Fine Short Pen Needle] ropinirole 5 mg PO HS 01/06/20 09/03/20 ondansetron HCl 4 mg PO PRN PRN 09/03/20 09/03/20 Allergies Allergy/AdvReac Type Severity Reaction Status Date / Time ceftriaxone Allergy Severe SOB Verified 03/14/21 09:29 cephalexin Allergy Severe Difficulty Verified 03/14/21 09:29 Breathing Cephalosporins Allergy Severe Difficulty Verified 03/14/21 09:29 Breathing lorazepam Allergy Severe Swelling Verified 03/14/21 09:29 metoclopramide Allergy Intermediate Other Verified 03/14/21 09:29 chlorhexidine Allergy Mild BLISTERING Verified 03/14/21 09:29 levofloxacin Allergy Mild Hives / Verified 03/14/21 09:29 Red Face trazodone Allergy Swelling Verified 03/14/21 09:29 of Lip/Tongue/Throat oxycodone AdvReac Mild Vomiting Verified 03/14/21 09:29 Review of Systems Review of Systems: All systems reviewed & are unremarkable except as noted in HPI and below Constitutional: Constitutional: Denies body ache(s), Denies chills, Denies excessive sweating, Denies fatigue, Denies fever(s), Denies headache(s), Denies lethargy, Denies malaise, Denies weakness and Denies weight loss Eyes: Eyes: Denies blurry vision, Denies change in vision and Denies loss of vision ENT: Denies dizziness, Denies ear discharge, Denies headache(s), Denies lip swelling, Denies epistaxis, Denies nasal congestion, Denies neck pain and Denies throat swelling Cardiovascular: Cardiovascular: Denies chest pain, Denies chest pain at rest, Denies chest pain with activity, Denies diaphoresis, Denies rapid heart rate, Denies edema, Denies irregular heart rhythm, Denies lightheadedness, Denies palpitations, Denies dyspnea and Denies dyspnea on exertion Respiratory: Respiratory: Denies chest congestion, Denies cough, Denies hemoptysis, Denies dyspnea and Denies dyspnea on exertion Gastrointestinal: Gastrointestinal: Denies abdominal pain, Denies melena, Denies hematochezia, Denies diarrhea, Denies nausea, Denies vomiting and Denies hematemesis Musculoskeletal: Musculoskeletal: Denies abnormal gait, Denies deformity, Denies joint swelling, Denies limited range of motion, Denies neck pain and Denies numbness Neurologic: Denies Abnormal speech present, Denies abnormal gait, Denies confusion, Denies dizziness, Denies headache(s), Denies focal weakness, Denies loss of vision, Denies numbness, Denies Other visual disturbances, Denies Sensory deficit (Neuro) and Denies weakness Psychiatric: Psychiatric: Denies confusion, Denies depression, Denies auditory hallucinations, Denies homicidal ideation and Denies suicidal ideation Endocrine: Endocrine: Denies cold intolerance, Denies excessive sweating, Denies fatigue, Denies heat intolerance and Denies palpitations Hematologic/Lymphatic: Hematologic/Lymphatic: Denies easy bleeding and Denies easy bruising Allergic/Immuno
[2021-03-14] MEDS: methylPREDNISolone SOD SUCC 125 MG VIAL IV PUSH (09:06)
[2021-03-14] MEDS: diphenhydrAMINE HCl INJ 50 MG/ML VIAL 25 MG IV PUSH (09:09)
[2021-03-14] MEDS: FAMOTIDINE 20 MG/2 ML VIAL 40 MG IV PUSH (09:09)
[2021-03-14 10:30] VITALS: BP 107/55; PULSE 90; RESP 16; O2SAT 98
== END 2021-03-14 10:40 | disposition home or self-care (01) ==
PROVIDERS: Emergency Provider Emergency Medicine
DX: T78.3XXA Angioneurotic edema, initial encounter (principal); I50.9 Heart failure, unspecified; E11.42 Type 2 diabetes mellitus with diabetic polyneuropathy; E03.9 Hypothyroidism, unspecified; K58.9 Irritable bowel syndrome, unspecified; G47.33 Obstructive sleep apnea (adult) (pediatric); E66.01 Morbid (severe) obesity due to excess calories; Z68.43 Body mass index [BMI] 50.0-59.9, adult; G25.81 Restless legs syndrome; F41.9 Anxiety disorder, unspecified; F32.A Depression, unspecified; Z85.3 Personal history of malignant neoplasm of breast; Z86.711 Personal history of pulmonary embolism; Z87.442 Personal history of urinary calculi; Z79.4 Long term (current) use of insulin; Z79.01 Long term (current) use of anticoagulants; Z87.440 Personal history of urinary (tract) infections; Z96.651 Presence of right artificial knee joint; Z90.13 Acquired absence of bilateral breasts and nipples; Z87.891 Personal history of nicotine dependence
CPT/HCPCS: 96374; 96375; 99284; J1200; J2930

== ENCOUNTER 2021-05-06 19:48 | Emergency (ER) | payer MEDICARE, SELFPAY ==
--- NOTE | ~2021-05-06 | XR_ITS ---
XR chest 1V portable DATE: 05/06/2021 22:39 INDICATION: Dyspnea. History of congestive heart failure and pulmonary embolus TECHNIQUE: Portable AP chest on 05/06/2021 at 2223 hours COMPARISON: 10/22/2020 portable AP chest FINDINGS: This is a limited apical lordotic single portable AP view of the chest. Mild right basilar infiltrate or atelectasis. Increased retrocardiac density on the left and mild leftward shift of heart and mediastinum suggest l eft lower lung infiltrate/atelectasis. Heart size is not optimally evaluated on AP projection because of magnification. No pleural effusion or pulmonary vascular congestion or pneumothorax. Diffuse osteopenia. IMPRESSION: Limited examination suggesting right basilar infiltrate or atelectasis, left lower lung i nfiltrate and/atelectasis Reviewed, dictated and finalized at location [facility] IMPRESSION: Limited examination suggesting right basilar infiltrate or atelecta sis, left lower lung infiltrate and/atelectasis
[2021-05-06 19:57] VITALS: BP 144/75; PULSE 102; RESP 17; TEMP 36.7; O2SAT 98
--- NOTE | 2021-05-06 22:19 | ECG_ITS ---
Measurements Intervals [place] Rate: 85 P: 42 WI: 132 QRS: 5 QRSD: 87 T: 51 QT: 363 QTc: 433 Interpretive Statements SINUS RHYTHM EARLY PRECORDIAL R/S TRANSITION NONSPECIFIC T-WAVE ABNORMALITY- ANTERIOR LEADS BORDERLINE ECG Electronically Signed On 05-07-2021 6:13:14 HOLE DIGGER OPERATOR by Jonatan Parra D.O.
[2021-05-06 22:21] VITALS: BP 138/70; PULSE 91; RESP 22; O2SAT 97
[2021-05-06 22:32] LABS: Basophils Percent Auto 0.3 % (0.2-1.2); Eosinophils Absolute Auto 0.4 K/mm3 (0-0.3); Eosinophils Percent Auto 3.2 % (0-4.4); Hematocrit 41.9 % (37.0-47.0); Hemoglobin 13.4 g/dL (12.0-15.0); Immature Granulocyte Absolute 0.05 K/mm3 (0.00-0.031); Immature Granulocyte Percent A 0.4 % (0-0.5); Lymphocytes Percent Auto 26.5 % (18.3-44.2); Mean Corpuscular Hemoglobin 28.7 pg (26-34); Mean Corpuscular Volume 89.7 fl (80-100); Mean Platelet Volume 9.5 fl (7.4-10.4); Monocytes Percent Auto 9.1 % (2.6-8.5); Neutrophils Absolute Auto 6.8 K/mm3 (1.3-6.7); Neutrophils Percent Auto 60.5 % (45.5-73.1); Platelet Count Result 303 k/mm3 (150-375); Red Blood Count 4.67 M/mm3 (4.2-5.4); Red Cell Distribution Width 13.7 % (11.5-14.5); White Blood Count 11.3 K/mm3 (4.5-10.0)
[2021-05-06 22:42] LABS: INR 1.2; Partial Thromboplastin Time 30.3 SECONDS (22.3-36.8); Prothrombin Time 14.8 Seconds (11.1-14.7)
--- NOTE | 2021-05-06 22:54 | ED.GENADULT ---
HPI - General Adult General Chief complaint: Extremity Problem,Nontraumatic Stated complaint: left leg swelling Time Seen by Provider: 05/06/21 22:13 History of Present Illness HPI narrative: Patient 65-year-old female presents the emergency room with chief complaint of left lower extremity pain. Patient reports she has history of DVT and PE reports she is on Xarelto patient states that the end of March she developed COVID-19 and subsequently was concerned that she started having pain in her left calf. Patient reports she has not missed any doses of her anticoagulant denies shortness of breath but does report that she has had some swelling in her face and noticed that her legs have been a little bit more swollen lately. Patient does report that she has remote history of congestive heart failure but has been told that those symptoms and conditions have subsequently improved and is currently not on any diuretics. Related Data Home Medications Medication Instructions Recorded Confirmed Lantus Solostar U-100 Insulin 50 unit SUBCUT DAILY 01/06/20 09/03/20 Xarelto 20 mg PO DAILY 01/06/20 09/03/20 amitriptyline 25 mg PO BID 01/06/20 09/03/20 exemestane 25 mg PO DAILY 01/06/20 09/03/20 insulin lispro 26 unit SUBCUT TID 01/06/20 09/03/20 lisinopril 20 mg PO DAILY 01/06/20 09/03/20 pen needle, diabetic [BD 01/06/20 01/17/20 Ultra-Fine Short Pen Needle] ropinirole 5 mg PO HS 01/06/20 09/03/20 ondansetron HCl 4 mg PO PRN PRN 09/03/20 09/03/20 Allergies Allergy/AdvReac Type Severity Reaction Status Date / Time ceftriaxone Allergy Severe SOB Verified 05/06/21 19:59 cephalexin Allergy Severe Difficulty Verified 05/06/21 19:59 Breathing Cephalosporins Allergy Severe Difficulty Verified 05/06/21 19:59 Breathing lorazepam Allergy Severe Swelling Verified 05/06/21 19:59 metoclopramide Allergy Intermediate Other Verified 05/06/21 19:59 chlorhexidine Allergy Mild BLISTERING Verified 05/06/21 19:59 levofloxacin Allergy Mild Hives / Verified 05/06/21 19:59 Red Face trazodone Allergy Swelling Verified 05/06/21 19:59 of Lip/Tongue/Throat oxycodone AdvReac Mild Vomiting Verified 05/06/21 19:59 Review of Systems Review of Systems: A 10 system review of systems was completed on the patient and is negative except for what is stated in the HPI. Nursing and ancillary documentation was reviewed. [facility] Past Medical History Medical History Anxiety Breast cancer CHF (congestive heart failure) Collagenous colitis Depression DM type 2 (diabetes mellitus, type 2) DVT (deep venous thrombosis) Hypothyroid IBS (irritable bowel syndrome) Kidney stone Morbid obesity Multiple thyroid nodules LUL on CPAP Peripheral neuropathy Pulmonary embolism positive for coagulation workup RLS (restless legs syndrome) 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) Surgical History Surgical History H/O hernia repair H/O mastectomy bilateral History of cardiac catheterization no CAD noted History of esophagogastroduodenoscopy (EGD) History of right oophorectomy History of total right knee replacement Hx of cholecystectomy Hx of colonoscopy S/P ureteral stent placement Family History Family History Mother Diabetes mellitus Father Prostate carcinoma Sibling Breast cancer Social History Social History Social History: Patient lives at home with daughter, Yunior, whom she designates as her surrogate MDM. Her PCP is Dr. Gale. She wishes to be a Full Code Smoking packs per day: 0 Smoking cigarettes per day: 0.0 Years smoked: 2 Smoking pack-years: 0.00 Smoking status: Former smoker Tobacco type: cigarettes Second hand tobacco smoke exposure: No Additional smoking assessment comments
[2021-05-06] MEDS: HYDROcodone/acetaminophen (*CRX) 5-325 MG TABLET 1 TAB PO (22:58)
[2021-05-06 23:03] LABS: Alanine Aminotransferase 25 U/L (4-35); Albumin Level 4.2 g/dL (3.5-5.1); Alkaline Phosphatase 68 U/L (38-126); Anion Gap 8 mmol/L (8-16); Aspartate Amino Transferase 33 U/L (14-36); Bilirubin,Total 0.5 mg/dL (0.2-1.3); Blood Urea Nitrogen 20 mg/dL (7-17); Calcium 10.1 mg/dL (8.4-10.2); Carbon Dioxide 30 mmol/L (22-30); Chloride 101 mmol/L (98-107); Estimated CRCL calculation 86 ml/min; Estimated Glomerular Filt Rate > 60; Glucose 162 mg/dL (65-110); Potassium 3.8 mmol/L (3.4-5.0); Sodium 139 mmol/L (137-145)
[2021-05-06 23:21] LABS: NT Pro B Type Natriuretic Pept 68 pg/mL (5-100); Troponin I < 0.012 ng/mL (0.000-0.034)
[2021-05-06 23:31] LABS: D Dimer 0.27 ug/mL (<0.48)
[2021-05-07 00:24] VITALS: BP 131/79; PULSE 91; RESP 16; O2SAT 99
== END 2021-05-07 00:26 | disposition home or self-care (01) ==
PROVIDERS: Emergency Provider Emergency Medicine; PCP Internal Medicine
DX: M79.662 Pain in left lower leg (principal); E11.42 Type 2 diabetes mellitus with diabetic polyneuropathy; I50.9 Heart failure, unspecified; E03.9 Hypothyroidism, unspecified; K58.9 Irritable bowel syndrome, unspecified; F41.9 Anxiety disorder, unspecified; G25.81 Restless legs syndrome; G47.33 Obstructive sleep apnea (adult) (pediatric); E66.01 Morbid (severe) obesity due to excess calories; Z68.43 Body mass index [BMI] 50.0-59.9, adult; Z86.16 Personal history of COVID-19; Z85.3 Personal history of malignant neoplasm of breast; Z86.718 Personal history of other venous thrombosis and embolism; Z86.711 Personal history of pulmonary embolism; Z87.440 Personal history of urinary (tract) infections; Z79.4 Long term (current) use of insulin; Z79.01 Long term (current) use of anticoagulants; Z87.442 Personal history of urinary calculi; Z90.13 Acquired absence of bilateral breasts and nipples; Z96.651 Presence of right artificial knee joint; Z87.891 Personal history of nicotine dependence; R91.8 Other nonspecific abnormal finding of lung field; R94.31 Abnormal electrocardiogram [ECG] [EKG]
CPT/HCPCS: 36415; 71045; 80053; 83880; 84484; 85025; 85380; 85610; 85730; 93005; 99284; A9270

== ENCOUNTER 2021-05-09 05:08 | Emergency (ER) | payer MEDICARE, MEDICAID, SELFPAY ==
[2021-05-09] VITALS (13 sets, daily range): BP systolic 110–149; BP diastolic 65–89; PULSE 88–100; RESP 16–25; TEMP 36.7; O2SAT 96–100
--- NOTE | ~2021-05-09 | CT_ITS ---
EXAMINATION: CTA chest PE protocol DATE: 05/09/2021 07:27 BIOTECHNICIAN INDICATION: History of pulmonary embolisms. TECHNIQUE: Computed tomographic angiography (CTA) of the chest was performed with 100 mL Omnipaque-35 0 intravenous contrast. The dose-length product was 985.50 mGy-cm. Maximum intensity projection 3D-re constructions of the aorta and other arteries were constructed by the technologist on a separate work station. COMPARISON: CT dated 12/28/2019. FINDINGS: There is thoracic aortic atherosclerosis and ectasia. Heart size normal. No significant ple ural or pericardial effusion. Study is technically adequate without evidence for pulmonary embolism. Mildly enlarged pulmonary arteries suggesting pulmonary hypertension. Upper abdomen is unremarkable. No thoracic lymphadenopathy. There are small hypodense lesions of the thyroid glands with scattered c alcifications, likely multinodular goiter. Mild thoracic spondylosis. Mild dextroscoliosis. No endobr onchial lesions. There are mild chronic interstitial lung changes of the left lung peripherally, stab le. IMPRESSION: 1. No acute cardiopulmonary disease. No evidence for pulmonary embolism. Reviewed, dictated and finalized at location A. ECHNICIAN
--- NOTE | 2021-05-09 05:18 | ECG_ITS ---
Measurements Intervals [place] Rate: 94 P: 7 DE: 142 QRS: -7 QRSD: 90 T: 17 QT: 364 QTc: 457 Interpretive Statements SINUS RHYTHM INCOMPLETE RIGHT BUNDLE BRANCH BLOCK BASELINE ARTIFACT- I, II, III, AVR, AVL, AVF, V1-V6 BORDERLINE ECG Electronically Signed On 05-09-2021 7:21:18 DUTY OFFICER by Jonatan Parra D.O.
--- NOTE | 2021-05-09 05:23 | ED.GENADULT ---
HPI - General Adult General Chief complaint: Shortness of Breath/Dyspnea <Dajuan Julio MD - Last Filed: 05/09/21 05:25> Stated complaint: difficulty breathing <Dajuan Julio MD - Last Filed: 05/09/21 05:25> Time Seen by Provider: 05/09/21 05:16 <Dajuan Julio MD - Last Filed: 05/09/21 05:25> History of Present Illness HPI narrative: Patient 65-year-old female presents the emergency department with chief complaint of shortness of breath. The patient was seen in the emergency department the other night for leg swelling and pain the patient was to follow-up as an outpatient for an ultrasound but she was unable to get a ride to the radiology department and did not get her ultrasound done. Patient reports tonight she was resting and started getting more short of breath and got more anxious. Patient states she is doing a little bit better now EMS was called and the patient was not hypoxic and was breathing about 30 times a minute. <Dajuan Julio MD - Last Filed: 05/09/21 05:25> Related Data Home medications: Home Medications Medication Instructions Recorded Confirmed Lantus Solostar U-100 Insulin 50 unit SUBCUT DAILY 01/06/20 09/03/20 Xarelto 20 mg PO DAILY 01/06/20 09/03/20 amitriptyline 25 mg PO BID 01/06/20 09/03/20 exemestane 25 mg PO DAILY 01/06/20 09/03/20 insulin lispro 26 unit SUBCUT TID 01/06/20 09/03/20 lisinopril 20 mg PO DAILY 01/06/20 09/03/20 pen needle, diabetic [BD 01/06/20 01/17/20 Ultra-Fine Short Pen Needle] ropinirole 5 mg PO HS 01/06/20 09/03/20 ondansetron HCl 4 mg PO PRN PRN 09/03/20 09/03/20 <Dajuan Julio MD - Last Filed: 05/09/21 05:25> Allergies/adverse reactions: Allergies Allergy/AdvReac Type Severity Reaction Status Date / Time ceftriaxone Allergy Severe SOB Verified 05/09/21 05:36 cephalexin Allergy Severe Difficulty Verified 05/09/21 05:36 Breathing Cephalosporins Allergy Severe Difficulty Verified 05/09/21 05:36 Breathing lorazepam Allergy Severe Swelling Verified 05/09/21 05:36 metoclopramide Allergy Intermediate Other Verified 05/09/21 05:36 chlorhexidine Allergy Mild BLISTERING Verified 05/09/21 05:36 levofloxacin Allergy Mild Hives / Verified 05/09/21 05:36 Red Face trazodone Allergy Swelling Verified 05/09/21 05:36 of Lip/Tongue/Throat oxycodone AdvReac Mild Vomiting Verified 05/09/21 05:36 <Dajuan Julio MD - Last Filed: 05/09/21 05:25> Review of Systems Review of Systems: A 10 system review of systems was completed on the patient and is negative except for what is stated in the HPI. Nursing and ancillary documentation was reviewed. <Dajuan Julio MD - Last Filed: 05/09/21 05:25> [facility] Past Medical History Medical History: Medical History Anxiety Breast cancer CHF (congestive heart failure) Collagenous colitis Depression DM type 2 (diabetes mellitus, type 2) DVT (deep venous thrombosis) Hypothyroid IBS (irritable bowel syndrome) Kidney stone Morbid obesity Multiple thyroid nodules LUL on CPAP Peripheral neuropathy Pulmonary embolism positive for coagulation workup RLS (restless legs syndrome) 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) <Dajuan Julio MD - Last Filed: 05/09/21 05:25> Surgical History Surgical History: Surgical History H/O hernia repair H/O mastectomy bilateral History of cardiac catheterization no CAD noted History of esophagogastroduodenoscopy (EGD) History of right oophorectomy History of total right knee replacement Hx of cholecystectomy Hx of colonoscopy S/P ureteral stent placement <Dajuan Julio MD - Last Filed: 05/09/21 05:25> Family History Family History: Family History Mother Diabet
[2021-05-09 06:04] LABS: INR 2.3; Prothrombin Time 24.4 Seconds (11.1-14.7)
[2021-05-09 06:05] LABS: Partial Thromboplastin Time 43.4 SECONDS (22.3-36.8)
[2021-05-09 06:07] LABS: Alanine Aminotransferase 23 U/L (4-35); Albumin Level 4.3 g/dL (3.5-5.1); Alkaline Phosphatase 77 U/L (38-126); Anion Gap 8 mmol/L (8-16); Aspartate Amino Transferase 29 U/L (14-36); Bilirubin,Total 0.6 mg/dL (0.2-1.3); Blood Urea Nitrogen 17 mg/dL (7-17); Calcium 9.7 mg/dL (8.4-10.2); Carbon Dioxide 29 mmol/L (22-30); Chloride 101 mmol/L (98-107); Estimated CRCL calculation 88 ml/min; Estimated Glomerular Filt Rate > 60; Glucose 167 mg/dL (65-110); Magnesium 1.7 mg/dL (1.6-2.3); Sodium 138 mmol/L (137-145)
[2021-05-09 06:08] LABS: Add Urine Microscopic? YES; Appearance Urine Clear (Clear); Bilirubin Urine Negative (Negative); Blood Urine 1+ (Negative); Color Urine Yellow (Yellow); Glucose Urine UA Negative (Negative); Ketones Urine Negative (Negative); Lactic Acid Reflex 1.5 mmol/L (0.7-2.1); Leukocyte Esterase Ur Negative LEU/UL (Negative); Mucus Urine Rare /lpf; Nitrate Urine Negative (Negative); Protein Urine Negative (Negative); Specific Grav Ur 1.019 (1.001-1.035); Urobilinogen Urine Negative mg/dL (<2.0); WBC Urine 0-3 /hpf
[2021-05-09 06:12] LABS: Basophils Percent Auto 0.3 % (0.2-1.2); Eosinophils Absolute Auto 0.4 K/mm3 (0-0.3); Eosinophils Percent Auto 3.9 % (0-4.4); Hematocrit 40.9 % (37.0-47.0); Hemoglobin 12.8 g/dL (12.0-15.0); Immature Granulocyte Absolute 0.03 K/mm3 (0.00-0.031); Immature Granulocyte Percent A 0.3 % (0-0.5); Lymphocytes Percent Auto 25.1 % (18.3-44.2); Mean Corpuscular HGB Conc 31.3 g/dl (32-36); Mean Corpuscular Hemoglobin 28.9 pg (26-34); Mean Corpuscular Volume 92.3 fl (80-100); Mean Platelet Volume 9.9 fl (7.4-10.4); Monocytes Absolute Auto 0.9 K/mm3 (0.1-0.6); Monocytes Percent Auto 8.6 % (2.6-8.5); Neutrophils Absolute Auto 6.2 K/mm3 (1.3-6.7); Neutrophils Percent Auto 61.8 % (45.5-73.1); Platelet Count Result 280 k/mm3 (150-375); Red Blood Count 4.43 M/mm3 (4.2-5.4)
[2021-05-09 06:19] LABS: Troponin I < 0.012 ng/mL (0.000-0.034)
--- NOTE | 2021-05-09 06:20 | PC.NURSE ---
Pt to CT scan.
--- NOTE | 2021-05-09 06:26 | PC.NURSE ---
Pt to CT scan via stretcher at this time.
[2021-05-09] MEDS: IPRATROPIUM BR 0.02% INH SOLN 0.5 MG/2.5 ML VIAL INHALATION (06:41)
[2021-05-09] MEDS: ALBUTEROL SULFATE NEB 2.5 MG/0.5 ML INH 5 MG INHALATION (06:41)
--- NOTE | 2021-05-09 07:14 | PC.NURSE ---
assumed care of pt from NURIS Storey. Pt resting comfortably on stretcher
[2021-05-09 08:31] LABS: Troponin I < 0.012 ng/mL (0.000-0.034)
== END 2021-05-09 10:09 | disposition home or self-care (01) ==
PROVIDERS: Emergency Medicine; Emergency Provider Emergency Medicine; PCP Internal Medicine
DX: I50.9 Heart failure, unspecified (principal); R06.00 Dyspnea, unspecified; E11.42 Type 2 diabetes mellitus with diabetic polyneuropathy; K58.9 Irritable bowel syndrome, unspecified; E03.9 Hypothyroidism, unspecified; E04.2 Nontoxic multinodular goiter; G47.33 Obstructive sleep apnea (adult) (pediatric); G25.81 Restless legs syndrome; F41.9 Anxiety disorder, unspecified; F32.A Depression, unspecified; E66.01 Morbid (severe) obesity due to excess calories; Z68.43 Body mass index [BMI] 50.0-59.9, adult; Z85.3 Personal history of malignant neoplasm of breast; Z86.718 Personal history of other venous thrombosis and embolism; Z86.711 Personal history of pulmonary embolism; Z87.442 Personal history of urinary calculi; Z87.440 Personal history of urinary (tract) infections; Z90.13 Acquired absence of bilateral breasts and nipples; Z96.651 Presence of right artificial knee joint; Z87.891 Personal history of nicotine dependence; I45.10 Unspecified right bundle-branch block; Z79.01 Long term (current) use of anticoagulants; Z79.4 Long term (current) use of insulin
CPT/HCPCS: 36415; 51701; 71275; 80053; 81001; 83605; 83735; 84484; 85025; 85610; 85730; 93005; 94640; 99284; Q9967

== ENCOUNTER 2021-05-18 10:35 | Outpatient (CLI) | payer MEDICARE, MEDICAID, SELFPAY ==
--- NOTE | 2021-05-18 | ECG_ITS ---
Measurements Intervals [place] Rate: 91 P: 19 ME: 157 QRS: -5 QRSD: 88 T: 59 QT: 370 QTc: 456 Interpretive Statements SINUS RHYTHM EARLY PRECORDIAL R/S TRANSITION BORDERLINE ECG Electronically Signed On 05-18-2021 11:36:10 CUSTOMER SERVICE AGENT by Jonatan Parra D.O.
[2021-05-18 11:13] LABS: Basophils Absolute Auto 0.1 K/mm3 (0.0-0.1); Basophils Percent Auto 0.5 % (0.2-1.2); Eosinophils Absolute Auto 0.4 K/mm3 (0-0.3); Eosinophils Percent Auto 3.5 % (0-4.4); Hematocrit 42.2 % (37.0-47.0); Hemoglobin 13.2 g/dL (12.0-15.0); Immature Granulocyte Absolute 0.05 K/mm3 (0.00-0.031); Immature Granulocyte Percent A 0.5 % (0-0.5); Lymphocytes Percent Auto 24.7 % (18.3-44.2); Mean Corpuscular HGB Conc 31.3 g/dl (32-36); Mean Corpuscular Hemoglobin 28.6 pg (26-34); Mean Corpuscular Volume 91.3 fl (80-100); Mean Platelet Volume 9.3 fl (7.4-10.4); Monocytes Absolute Auto 0.8 K/mm3 (0.1-0.6); Monocytes Percent Auto 7.7 % (2.6-8.5); Neutrophils Absolute Auto 6.4 K/mm3 (1.3-6.7); Neutrophils Percent Auto 63.1 % (45.5-73.1); Platelet Count Result 268 k/mm3 (150-375); Red Blood Count 4.62 M/mm3 (4.2-5.4); Red Cell Distribution Width 13.9 % (11.5-14.5); White Blood Count 10.1 K/mm3 (4.5-10.0)
[2021-05-18 11:20] LABS: Add Urine Microscopic? YES; Appearance Urine Clear (Clear); Bilirubin Urine Negative (Negative); Blood Urine 1+ (Negative); Color Urine Yellow (Yellow); Glucose Urine UA Negative (Negative); Ketones Urine Negative (Negative); Leukocyte Esterase Ur Negative LEU/UL (NEGATIVE); Mucus Urine Rare /lpf; Nitrate Urine Negative (Negative); Protein Urine Negative (Negative); RBC Urine 0-2 /hpf (0-2); Specific Grav Ur 1.023 (1.001-1.035); Squamous Epithelial Cell Urine Rare /hpf (Few); Urobilinogen Urine Negative mg/dL (<2.0); WBC Urine 0-3 /hpf (0-3)
[2021-05-18 11:28] LABS: Alanine Aminotransferase 22 U/L (4-35); Albumin Level 4.2 g/dL (3.5-5.1); Alkaline Phosphatase 84 U/L (38-126); Anion Gap 10 mmol/L (8-16); Aspartate Amino Transferase 31 U/L (14-36); Bilirubin,Total 0.8 mg/dL (0.2-1.3); Blood Urea Nitrogen 17 mg/dL (7-17); CRP 2.9 mg/dL (<1.0); Calcium 9.8 mg/dL (8.4-10.2); Carbon Dioxide 28 mmol/L (22-30); Chloride 99 mmol/L (98-107); Estimated Glomerular Filt Rate > 60; Glucose 162 mg/dL (65-110); Potassium 4.4 mmol/L (3.4-5.0); Sodium 137 mmol/L (137-145)
[2021-05-18 11:57] LABS: Hemoglobin A1C 7.3 % (<5.7)
[2021-05-18 12:55] LABS: Erythrocyte Sedimentation Rate 28 mm/hr (0-20)
== END 2021-05-18 10:36 | disposition home or self-care (01) ==
PROVIDERS: PCP Internal Medicine; Visit Provider Pain Medicine Pain Medicine
DX: Z01.818 Encounter for other preprocedural examination (principal); R94.31 Abnormal electrocardiogram [ECG] [EKG]
CPT/HCPCS: 36415; 80053; 81001; 83036; 85025; 85652; 86140; 93005

== ENCOUNTER 2021-09-21 21:39 | Emergency (ER) | payer MEDICARE, MEDICAID, SELFPAY ==
--- NOTE | ~2021-09-21 | CT_ITS ---
EXAMINATION: CT thoracic spine wo con DATE: 09/22/2021 00:09 INDICATION: Back pain. Rash. Nerve stimulator leads placed 5 days ago. TECHNIQUE: Computed tomography (CT) of the thoracic spine was performed without intravenous contrast. The dose-length product was 1488.55 mGy-cm. COMPARISON: No prior studies for comparison. FINDINGS: There is dextroscoliosis of the thoracic spine. There is mild-moderate multilevel thoracic spondylosis characterized by disc narrowing, vacuum phenomena and marginal osteophytes at multiple le vels. Neural stimulator lead overlies the T7 vertebra. No acute fracture, subluxation or dislocation. Visualized lung parenchyma is unremarkable. No significant paraspinal soft tissue abnormality. IMPRESSION: 1. No acute abnormality of the thoracic spine. 2: Moderate thoracic spondylosis with dextroscoliosis. Reviewed, dictated and finalized at location A.
[2021-09-21 21:47] VITALS: BP 150/103; PULSE 93; RESP 18; TEMP 36.7; O2SAT 100
[2021-09-21] MEDS: MORPHINE SULFATE (*CRX) 4 MG/ML INJ IV PUSH (23:42)
[2021-09-21 23:47] LABS: Basophils Percent Auto 0.3 % (0.2-1.2); Eosinophils Absolute Auto 0.6 K/mm3 (0-0.3); Eosinophils Percent Auto 4.9 % (0-4.4); Hematocrit 40.3 % (37.0-47.0); Hemoglobin 12.5 g/dL (12.0-15.0); Immature Granulocyte Absolute 0.07 K/mm3 (0.00-0.031); Immature Granulocyte Percent A 0.6 % (0-0.5); Lymphocytes Absolute Auto 2.35 K/mm3 (0.9-3.2); Lymphocytes Percent Auto 20.4 % (18.3-44.2); Mean Corpuscular Hemoglobin 29.3 pg (26-34); Mean Corpuscular Volume 94.4 fl (80-100); Mean Platelet Volume 9.4 fl (7.4-10.4); Monocytes Absolute Auto 0.7 K/mm3 (0.1-0.6); Monocytes Percent Auto 5.9 % (2.6-8.5); Neutrophils Absolute Auto 7.9 K/mm3 (1.3-6.7); Neutrophils Percent Auto 67.9 % (45.5-73.1); Platelet Count Result 311 k/mm3 (150-375); Red Blood Count 4.27 M/mm3 (4.2-5.4); Red Cell Distribution Width 13.5 % (11.5-14.5); White Blood Count 11.5 K/mm3 (4.5-10.0)
[2021-09-21 23:55] LABS: Alanine Aminotransferase 28 U/L (6-35); Albumin Level 3.7 g/dL (3.5-5.1); Alkaline Phosphatase 89 U/L (38-126); Anion Gap 5 mmol/L (8-16); Aspartate Amino Transferase 27 U/L (14-36); Bilirubin,Total 0.3 mg/dL (0.2-1.3); Blood Urea Nitrogen 19 mg/dL (7-17); Calcium 9.3 mg/dL (8.4-10.2); Carbon Dioxide 31 mmol/L (22-30); Chloride 102 mmol/L (98-107); Estimated CRCL calculation 88 ml/min; Estimated Glomerular Filt Rate > 60; Glucose 217 mg/dL (65-110); Potassium 4.5 mmol/L (3.4-5.0); Sodium 138 mmol/L (137-145)
--- NOTE | 2021-09-22 02:19 | ED.GENADULT ---
HPI - General Adult General Chief complaint: Wound/Laceration Stated complaint: wound infection Time Seen by Provider: 09/21/21 23:22 History of Present Illness HPI narrative: Patient is a 66-year-old female who presents ER with pain to her back. Patient underwent surgery at [facility] 5 days ago to have a nerve stimulator placed for chronic low back pain. Procedure went out well and she was discharged home. Last couple days she is noticing increased discomfort in her back. Initially she had a small area of redness that has since begun to spread. Initially when she contacted her general surgeon they recommend she take Benadryl they felt it was merited reaction. Patient denies any fevers or chills or sweats. She has not noticed any purulent discharge. She has no new focal neurologic deficit in the lower extremities and no issues with urination/defecation. Patient has been taking Ranger and tizanidine at home for her discomfort. Related Data Home Medications Medication Instructions Recorded Confirmed amitriptyline 25 mg tablet 25 mg PO BID 01/06/20 09/03/20 exemestane 25 mg tablet 25 mg PO DAILY 01/06/20 09/03/20 insulin glargine 100 unit/mL (3 50 unit subcut DAILY 01/06/20 09/03/20 mL) subcutaneous pen (Lantus Solostar U-100 Insulin) insulin lispro 100 unit/mL 26 unit subcut TID 01/06/20 09/03/20 subcutaneous pen lisinopril 20 mg tablet 20 mg PO DAILY 01/06/20 09/03/20 pen needle, diabetic 31 gauge x 01/06/20 01/17/20 5/16 (BD Ultra-Fine Short Pen Needle) rivaroxaban 20 mg tablet (Xarelto) 20 mg PO DAILY 01/06/20 09/03/20 ropinirole 5 mg tablet 5 mg PO HS 01/06/20 09/03/20 ondansetron HCl 4 mg tablet 4 mg PO PRN PRN nausea and vomiting 09/03/20 09/03/20 Allergies Allergy/AdvReac Type Severity Reaction Status Date / Time ceftriaxone Allergy Severe SOB Verified 09/21/21 23:41 cephalexin Allergy Severe Difficulty Verified 09/21/21 23:41 Breathing Cephalosporins Allergy Severe Difficulty Verified 09/21/21 23:41 Breathing lorazepam Allergy Severe Swelling Verified 09/21/21 23:41 metoclopramide Allergy Intermediate Other Verified 09/21/21 23:41 chlorhexidine Allergy Mild BLISTERING Verified 09/21/21 23:41 levofloxacin Allergy Mild Hives / Verified 09/21/21 23:41 Red Face trazodone Allergy Swelling Verified 09/21/21 23:41 of Lip/Tongue/Throat oxycodone AdvReac Mild Vomiting Verified 09/21/21 23:41 Review of Systems Review of Systems: All systems reviewed & are unremarkable except as noted in HPI and below Constitutional: Constitutional: Denies chills, Denies fatigue and Denies fever(s) ENT: Denies nasal congestion and Denies sore throat Cardiovascular: Cardiovascular: Denies chest pain, Denies rapid heart rate and Denies radiating jaw, neck or arm pain Respiratory: Respiratory: Denies cough and Denies dyspnea Gastrointestinal: Gastrointestinal: Denies abdominal pain, Denies nausea and Denies vomiting Integumentary/Breasts: Skin/Breast: Reports erythema, Reports rash and Denies skin ulcer Neurologic: Denies headache(s), Denies focal weakness and Denies numbness PMFSH Past Medical History Medical History (Updated 09/22/21 @ 02:29 by Gil Mi MD) Anxiety Breast cancer CHF (congestive heart failure) Collagenous colitis Depression DM type 2 (diabetes mellitus, type 2) DVT (deep venous thrombosis) Hypothyroid IBS (irritable bowel syndrome) Kidney stone Morbid obesity Multiple thyroid nodules LUL on CPAP Peripheral neuropathy Pulmonary embolism positive for coagulation workup RLS (restless legs syndrome) 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) Surgical History Surgical History (Updated 09/22/21 @ 02:26 by Gil Mi MD) H/O hernia repair H/O mastectomy bilateral History of cardiac catheterization no CAD noted History of esophagogastroduodenoscopy (EGD) History of right oophorectomy History of total right knee replacement Hx of cholecystecto
[2021-09-22 02:47] VITALS: BP 149/70; PULSE 83; RESP 18; O2SAT 98
== END 2021-09-22 02:49 | disposition home or self-care (01) ==
PROVIDERS: Emergency Provider Emergency Medicine; PCP Internal Medicine
DX: L73.9 Follicular disorder, unspecified (principal); I50.9 Heart failure, unspecified; E11.9 Type 2 diabetes mellitus without complications; Z85.3 Personal history of malignant neoplasm of breast; E03.9 Hypothyroidism, unspecified; Z79.4 Long term (current) use of insulin; Z87.891 Personal history of nicotine dependence
CPT/HCPCS: 36415; 72128; 80053; 85025; 96374; 99284; J2270

== ENCOUNTER 2021-10-12 22:56 | Emergency (ER) | payer MEDICARE, MEDICAID, SELFPAY ==
[2021-10-12 23:09] VITALS: BP 145/89; PULSE 99; RESP 18; TEMP 36.7; O2SAT 97
--- NOTE | 2021-10-13 03:36 | PC.NURSE ---
pt no answer - not in waiting area.
== END 2021-10-13 07:21 | disposition left against medical advice (07) ==
LOC: ANHED 10-13 07:17
DX: N39.0 Urinary tract infection, site not specified (principal)
CPT/HCPCS: 99199

== ENCOUNTER 2021-11-29 13:06 | Emergency (ER) | payer MEDICARE, MEDICAID, SELFPAY ==
--- NOTE | ~2021-11-29 | US_ITS ---
US venous doppler UE RT DATE: 11/29/2021 15:34 INDICATION: Right cubital fossa redness. History of right arm deep venous thrombosis. Patient on anti coagulant therapy. TECHNIQUE: Real-time and color flow imaging of the right upper extremity venous structures COMPARISON: None FINDINGS: There is luminal patency and vascular flow in the right jugular, subclavian, axillary, brac hial, basilic, cephalic, radial and ulnar veins. IMPRESSION: No evidence of deep venous thrombosis of right upper extremity Reviewed, dictated and finalized at Location A. Reviewed, dictated and finalized at location B.
[2021-11-29 13:08] VITALS: BP 158/82; PULSE 93; RESP 20; TEMP 36.9; O2SAT 98
[2021-11-29 14:21] VITALS: BP 152/92; PULSE 89; RESP 18; TEMP 36.4; O2SAT 97
--- NOTE | 2021-11-29 16:01 | ED.GENADULT ---
HPI - General Adult General Chief complaint: Unspecified Stated complaint: midline possible infection Time Seen by Provider: 11/29/21 14:18 History of Present Illness HPI narrative: Patient is a 66-year-old female who presents ER with concerns about a rash around her right midline. Patient was septic from a UTI and her back hardware from a nerve stimulator got infected and had to be redone. She is still getting IV antibiotics. She thinks her last day is tomorrow. She has noticed some discomfort in the forearm over the last couple days since having her bandage changed on 11/26/2021. No fevers or chills or sweats. No purulent drainage. No hemoptysis. Patient is on a blood thinner. Related Data Home Medications Medication Instructions Recorded Confirmed amitriptyline 25 mg tablet 25 mg PO BID 01/06/20 09/03/20 exemestane 25 mg tablet 25 mg PO DAILY 01/06/20 09/03/20 insulin glargine 100 unit/mL (3 50 unit subcut DAILY 01/06/20 09/03/20 mL) subcutaneous pen (Lantus Solostar U-100 Insulin) insulin lispro 100 unit/mL 26 unit subcut TID 01/06/20 09/03/20 subcutaneous pen lisinopril 20 mg tablet 20 mg PO DAILY 01/06/20 09/03/20 pen needle, diabetic 31 gauge x 01/06/20 01/17/2009/06 (BD Ultra-Fine Short Pen Needle) rivaroxaban 20 mg tablet (Xarelto) 20 mg PO DAILY 01/06/20 09/03/20 ropinirole 5 mg tablet 5 mg PO HS 01/06/20 09/03/20 ondansetron HCl 4 mg tablet 4 mg PO PRN PRN nausea and vomiting 09/03/20 09/03/20 Allergies Allergy/AdvReac Type Severity Reaction Status Date / Time ceftriaxone Allergy Severe SOB Verified 11/29/21 14:40 cephalexin Allergy Severe Difficulty Verified 11/29/21 14:40 Breathing Cephalosporins Allergy Severe Difficulty Verified 11/29/21 14:40 Breathing lorazepam Allergy Severe Swelling Verified 11/29/21 14:40 metoclopramide Allergy Intermediate Other Verified 11/29/21 14:40 chlorhexidine Allergy Mild BLISTERING Verified 11/29/21 14:40 levofloxacin Allergy Mild Hives / Verified 11/29/21 14:40 Red Face trazodone Allergy Swelling Verified 11/29/21 14:40 of Lip/Tongue/Throat oxycodone AdvReac Mild Vomiting Verified 11/29/21 14:40 Review of Systems Constitutional: Constitutional: Denies chills and Denies fever(s) Cardiovascular: Cardiovascular: Denies chest pain, Denies rapid heart rate and Denies palpitations Respiratory: Respiratory: Denies cough and Denies dyspnea Gastrointestinal: Gastrointestinal: Denies abdominal pain, Denies nausea and Denies vomiting Integumentary/Breasts: Skin/Breast: Denies furuncle, Reports rash and Denies sores PMFSH Past Medical History Medical History (Updated 11/29/21 @ 16:01 by Gil Mi MD) Anxiety Breast cancer CHF (congestive heart failure) Collagenous colitis Depression DM type 2 (diabetes mellitus, type 2) DVT (deep venous thrombosis) Hypothyroid IBS (irritable bowel syndrome) Kidney stone Morbid obesity Multiple thyroid nodules LUL on CPAP Peripheral neuropathy Pulmonary embolism positive for coagulation workup RLS (restless legs syndrome) 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) Surgical History Surgical History (Updated 09/22/21 @ 02:26 by Gil Mi MD) H/O hernia repair H/O mastectomy bilateral History of cardiac catheterization no CAD noted History of esophagogastroduodenoscopy (EGD) History of right oophorectomy History of total right knee replacement Hx of cholecystectomy Hx of colonoscopy S/P insertion of spinal cord stimulator S/P ureteral stent placement Family History Family History Mother Diabetes mellitus Father Prostate carcinoma Sibling Breast cancer Social History Social History Social History: Patient lives at home with daughter, Yunior, whom she designates as her surrogate MDM. Her PCP is Dr. Gale. She wishes to be a Full Code Smoking pack
[2021-11-29 16:15] VITALS: BP 159/88; PULSE 85; RESP 16; TEMP 36.2; O2SAT 100
== END 2021-11-29 16:15 | disposition home or self-care (01) ==
PROVIDERS: Emergency Provider Emergency Medicine; PCP Internal Medicine
DX: L23.3 Allergic contact dermatitis due to drugs in contact with skin (principal); T49.0X5A Adverse effect of local antifungal, anti-infective and anti-inflammatory drugs, initial encounter; I50.9 Heart failure, unspecified; E11.42 Type 2 diabetes mellitus with diabetic polyneuropathy; E03.9 Hypothyroidism, unspecified; G25.81 Restless legs syndrome; F41.9 Anxiety disorder, unspecified; F32.A Depression, unspecified; K58.9 Irritable bowel syndrome, unspecified; E66.01 Morbid (severe) obesity due to excess calories; Z68.43 Body mass index [BMI] 50.0-59.9, adult; Z86.718 Personal history of other venous thrombosis and embolism; Z86.711 Personal history of pulmonary embolism; Z87.442 Personal history of urinary calculi; Z85.3 Personal history of malignant neoplasm of breast; Z90.13 Acquired absence of bilateral breasts and nipples; Z90.721 Acquired absence of ovaries, unilateral; Z96.651 Presence of right artificial knee joint; Z96.82 Presence of neurostimulator; Z79.4 Long term (current) use of insulin; Z87.891 Personal history of nicotine dependence
CPT/HCPCS: 93971; 99284

== ENCOUNTER 2022-01-13 01:10 | Emergency (ER) | payer MEDICARE, MEDICAID, SELFPAY ==
--- NOTE | ~2022-01-13 | XR_ITS ---
EXAMINATION: XR chest 2V DATE: 01/13/2022 02:38 INDICATION: Shortness of breath. COVID-19 positive. TECHNIQUE: Frontal and lateral views of the chest were obtained. COMPARISON: Chest single view 05/06/2021, chest CT 05/09/2021 FINDINGS: There are mild airspace opacities in left midlung zone. No pleural effusion or pneumothorax . The heart size is normal. Epidural electrodes are noted. IMPRESSION: 1. Mild airspace opacities in left midlung zone, likely chronic radiation pneumonitis. Reviewed, dictated and finalized at location A. IMPRESSION: 1. Mild airspace opacities in left midlung zone, likely chronic radiation pneum onitis.
[2022-01-13 01:19] VITALS: BP 151/76; PULSE 97; RESP 18; TEMP 36.7; O2SAT 98
--- NOTE | 2022-01-13 02:06 | ECG_ITS ---
Measurements Intervals [place] Rate: 90 P: 5 MS: 146 QRS: 1 QRSD: 89 T: 28 QT: 362 QTc: 443 Interpretive Statements SINUS RHYTHM EARLY PRECORDIAL R/S TRANSITION BASELINE ARTIFACT- I, II, V2 BORDERLINE ECG COMPARED TO ECG 05/18/2021 11:31:53 NO SIGNIFICANT CHANGES Electronically Signed On 01-13-2022 6:56:27 CDT by Jonatan Parra D.O.
[2022-01-13 02:29] VITALS: PULSE 96; O2SAT 98
[2022-01-13 02:49] LABS: Basophils Percent Auto 0.5 % (0.2-1.2); Eosinophils Absolute Auto 0.2 K/mm3 (0-0.3); Eosinophils Percent Auto 2.3 % (0-4.4); Hematocrit 38.6 % (37.0-47.0); Hemoglobin 12.1 g/dL (12.0-15.0); Immature Granulocyte Absolute 0.02 K/mm3 (0.00-0.031); Immature Granulocyte Percent A 0.3 % (0-0.5); Lymphocytes Absolute Auto 1.03 K/mm3 (0.9-3.2); Lymphocytes Percent Auto 15.8 % (18.3-44.2); Mean Corpuscular HGB Conc 31.3 g/dl (32-36); Mean Corpuscular Volume 92.6 fl (80-100); Monocytes Absolute Auto 0.8 K/mm3 (0.1-0.6); Monocytes Percent Auto 11.7 % (2.6-8.5); Neutrophils Absolute Auto 4.5 K/mm3 (1.3-6.7); Neutrophils Percent Auto 69.4 % (45.5-73.1); Platelet Count Result 259 k/mm3 (150-375); Red Blood Count 4.17 M/mm3 (4.2-5.4); Red Cell Distribution Width 13.8 % (11.5-14.5); White Blood Count 6.5 K/mm3 (4.5-10.0)
[2022-01-13 02:52] LABS: Alanine Aminotransferase 24 U/L (6-35); Albumin Level 4.2 g/dL (3.5-5.1); Alkaline Phosphatase 84 U/L (38-126); Anion Gap 12 mmol/L (8-16); Aspartate Amino Transferase 35 U/L (14-36); Bilirubin,Total 0.3 mg/dL (0.2-1.3); Blood Urea Nitrogen 19 mg/dL (7-17); Calcium 9.5 mg/dL (8.4-10.2); Carbon Dioxide 25 mmol/L (22-30); Chloride 101 mmol/L (98-107); Estimated CRCL calculation 77 ml/min; Estimated Glomerular Filt Rate > 60; Glucose 140 mg/dL (65-110); Sodium 138 mmol/L (137-145)
[2022-01-13 03:23] LABS: INR 2.8; Prothrombin Time 28.9 Seconds (11.1-14.7)
[2022-01-13 03:24] LABS: Partial Thromboplastin Time 53.3 SECONDS (22.3-36.8)
[2022-01-13 03:25] LABS: Alveolar/Arterial O2 Gradient 22.9 mmHg; Base Excess ABG -2.1 mEq/l (+/-2.0); Carboxyhemoglobin 0.3 % THb (0-2.0); Fractional Inspired Oxygen 21 %; HCO3 ABG 22.6 mEq/l (22.0-26.0); Methemoglobin ABG 0.3 %THb (0-1.5); Oxygen Content ABG 16.9 %vol (16.0-22.0); Oxygen Saturation ABG 95.8 % (95.0-100.0); Oxyhemoglobin 94.4 % THb (90.0-100.0); PCO2 ABG 38.8 mmHg (35.0-45.0); PO2 ABG 80.4 mmHg (80.0-100.0); PO2 FiO2 Ratio Arterial Blood 3.83 %; Total Hemoglobin 12.7 g/dL (12.0-18.0); pH ABG 7.384 (7.350-7.450)
[2022-01-13 03:26] LABS: Device ROOM AIR; Modified Allen's Test Pass; Site Drawn RIGHT RADIAL
[2022-01-13 03:58] LABS: SARS-CoV-2 RNA PCR Positive
[2022-01-13 04:01] LABS: NT Pro B Type Natriuretic Pept 93 pg/mL (5-100); Troponin I < 0.012 ng/mL (0.000-0.034)
--- NOTE | 2022-01-13 04:38 | ED.SOB ---
HPI - SOB/Dyspnea General Chief Complaint: Shortness of Breath/Dyspnea Stated Complaint: COVID + today, SOB Time Seen by Provider: 01/13/22 02:18 Source: patient, RN notes reviewed and old records reviewed Mode of arrival: ambulatory Limitations: no limitations History of Present Illness HPI Narrative: This is a 66 year old female who presents for evaluation of shortness of breath. She woke up yesterday morning with headache, throat pain and body aches so she do home test for covid. Her test returned negative. Tonight she was unable to sleep because she is having difficulty breathing laying flat. She reports nausea but denies vomiting or abdominal pain. She reports history of dVT/PE years ago but she takes her medication daily. Related Data Home Medications Medication Instructions Recorded Confirmed amitriptyline 25 mg tablet 25 mg PO BID 01/06/20 09/03/20 exemestane 25 mg tablet 25 mg PO DAILY 01/06/20 09/03/20 insulin glargine 100 unit/mL (3 50 unit subcut DAILY 01/06/20 09/03/20 mL) subcutaneous pen (Lantus Solostar U-100 Insulin) insulin lispro 100 unit/mL 26 unit subcut TID 01/06/20 09/03/20 subcutaneous pen lisinopril 20 mg tablet 20 mg PO DAILY 01/06/20 09/03/20 pen needle, diabetic 31 gauge x 01/06/20 01/17/2009/06 (BD Ultra-Fine Short Pen Needle) rivaroxaban 20 mg tablet (Xarelto) 20 mg PO DAILY 01/06/20 09/03/20 ropinirole 5 mg tablet 5 mg PO HS 01/06/20 09/03/20 ondansetron HCl 4 mg tablet 4 mg PO PRN PRN nausea and vomiting 09/03/20 09/03/20 Allergies Allergy/AdvReac Type Severity Reaction Status Date / Time ceftriaxone Allergy Severe SOB Verified 11/29/21 14:40 cephalexin Allergy Severe Difficulty Verified 11/29/21 14:40 Breathing Cephalosporins Allergy Severe Difficulty Verified 11/29/21 14:40 Breathing lorazepam Allergy Severe Swelling Verified 11/29/21 14:40 metoclopramide Allergy Intermediate Other Verified 11/29/21 14:40 chlorhexidine Allergy Mild BLISTERING Verified 11/29/21 14:40 levofloxacin Allergy Mild Hives / Verified 11/29/21 14:40 Red Face trazodone Allergy Swelling Verified 11/29/21 14:40 of Lip/Tongue/Throat oxycodone AdvReac Mild Vomiting Verified 11/29/21 14:40 Review of Systems Review of Systems: All systems reviewed & are unremarkable except as noted in HPI and below Constitutional: Constitutional: Reports chills and Reports fatigue ENT: Reports nasal congestion and Reports sore throat Cardiovascular: Cardiovascular: Denies chest pain and Denies radiating jaw, neck or arm pain Respiratory: Respiratory: Denies chest congestion, Reports cough and Reports dyspnea Gastrointestinal: Gastrointestinal: Denies abdominal pain, Reports nausea and Denies vomiting [facility] Past Medical History Medical History Anxiety Breast cancer CHF (congestive heart failure) Collagenous colitis Depression DM type 2 (diabetes mellitus, type 2) DVT (deep venous thrombosis) Hypothyroid IBS (irritable bowel syndrome) Kidney stone Morbid obesity Multiple thyroid nodules LUL on CPAP Peripheral neuropathy Pulmonary embolism positive for coagulation workup RLS (restless legs syndrome) 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) Surgical History Surgical History H/O hernia repair H/O mastectomy bilateral History of cardiac catheterization no CAD noted History of esophagogastroduodenoscopy (EGD) History of right oophorectomy History of total right knee replacement Hx of cholecystectomy Hx of colonoscopy S/P insertion of spinal cord stimulator S/P ureteral stent placement Family History Family History Mother Diabetes mellitus Father Prostate carcinoma Sibling Breast cancer Social History Social History Social History:
[2022-01-13] MEDS: ONDANSETRON INJ 4 MG/2 ML VIAL IV PUSH (04:51)
[2022-01-13 05:40] LABS: D Dimer 0.37 ug/mL (<0.48)
[2022-01-13 05:43] VITALS: BP 144/95; PULSE 86; RESP 22; TEMP 36.6; O2SAT 100
--- NOTE | 2022-01-13 06:29 | PC.NURSE ---
Pt ambulated around in room with mobile SpO2. PT tolerated ambulation with cane. PT denies increase SOB. DR. Mari notified of results.
== END 2022-01-13 06:51 | disposition home or self-care (01) ==
PROVIDERS: Physician Assistant; Emergency Provider General Practice; PCP Internal Medicine
DX: U07.1 COVID-19 (principal); I50.9 Heart failure, unspecified; E11.42 Type 2 diabetes mellitus with diabetic polyneuropathy; E03.9 Hypothyroidism, unspecified; G47.33 Obstructive sleep apnea (adult) (pediatric); K58.9 Irritable bowel syndrome, unspecified; F41.9 Anxiety disorder, unspecified; F32.A Depression, unspecified; E66.01 Morbid (severe) obesity due to excess calories; Z85.3 Personal history of malignant neoplasm of breast; Z68.43 Body mass index [BMI] 50.0-59.9, adult; Z86.711 Personal history of pulmonary embolism; Z86.718 Personal history of other venous thrombosis and embolism; Z87.440 Personal history of urinary (tract) infections; Z87.442 Personal history of urinary calculi; Z90.13 Acquired absence of bilateral breasts and nipples; Z90.721 Acquired absence of ovaries, unilateral; Z96.651 Presence of right artificial knee joint; Z96.0 Presence of urogenital implants; Z96.82 Presence of neurostimulator; Z79.4 Long term (current) use of insulin; Z79.01 Long term (current) use of anticoagulants; Z87.891 Personal history of nicotine dependence; R94.31 Abnormal electrocardiogram [ECG] [EKG]
CPT/HCPCS: 36415; 36600; 71046; 80053; 82375; 82805; 83050; 83880; 84484; 85025; 85380; 85610; 85730; 93005; 96374; 99284; C9803; J2405; U0003; U0005

== ENCOUNTER 2022-03-13 10:13 | Emergency (ER) | payer MEDICARE, MEDICAID, SELFPAY ==
[2022-03-13 10:25] VITALS: BP 145/80; PULSE 104; RESP 24; TEMP 36.3; O2SAT 100
--- NOTE | 2022-03-13 10:39 | ED.URI ---
HPI - URI/Sore Throat General Chief Complaint: Upper Respiratory Infection Stated Complaint: Sore Throat,Shortness of Breath Time Seen by Provider: 03/13/22 10:15 Source: patient Mode of arrival: ambulatory Limitations: no limitations History of Present Illness HPI Narrative: 66-year-old female presents to [facility] with complaints of sore throat, shortness of breath, chest tightness since yesterday. Patient reports that her throat feels like it is closing up at times. Patient reports that she does have a history of congestive heart failure and chronic urinary tract infections. Patient reports that she was evaluated at [facility] emergency room 1 week ago for UTI and shortness of breath. Patient reports that she does have a history of congestive heart failure. Patient reports that her shortness of breath is worse with exertion. Patient denies lower extremity swelling. MD elicited complaint: sore throat and other (chest tightness, SOB) Onset (ago): day(s) (1) Consistency: constant Exacerbating factors: swallowing and exertion Related Data Home Medications Medication Instructions Recorded Confirmed amitriptyline 25 mg tablet 25 mg PO BID 01/06/20 03/13/22 exemestane 25 mg tablet 25 mg PO DAILY 01/06/20 03/13/22 insulin glargine 100 unit/mL (3 50 unit subcut DAILY 01/06/20 03/13/22 mL) subcutaneous pen (Lantus Solostar U-100 Insulin) insulin lispro 100 unit/mL 26 unit subcut TID 01/06/20 03/13/22 subcutaneous pen lisinopril 20 mg tablet 20 mg PO DAILY 01/06/20 03/13/22 pen needle, diabetic 31 gauge x 01/06/20 03/13/22 5/16 (BD Ultra-Fine Short Pen Needle) rivaroxaban 20 mg tablet (Xarelto) 20 mg PO DAILY 01/06/20 03/13/22 ropinirole 5 mg tablet 5 mg PO HS 01/06/20 03/13/22 oxybutynin chloride 5 mg tablet 5 mg PO DAILY 03/13/22 03/13/22 Allergies Allergy/AdvReac Type Severity Reaction Status Date / Time ceftriaxone Allergy Severe SOB Verified 03/13/22 10:36 cephalexin Allergy Severe Difficulty Verified 03/13/22 10:36 Breathing Cephalosporins Allergy Severe Difficulty Verified 03/13/22 10:36 Breathing lorazepam Allergy Severe Swelling Verified 03/13/22 10:36 metoclopramide Allergy Intermediate Other Verified 03/13/22 10:36 chlorhexidine Allergy Mild BLISTERING Verified 03/13/22 10:36 levofloxacin Allergy Mild Hives / Verified 03/13/22 10:36 Red Face trazodone Allergy Swelling Verified 03/13/22 10:36 of Lip/Tongue/Throat oxycodone AdvReac Mild Vomiting Verified 03/13/22 10:36 Review of Systems Constitutional: Constitutional: Denies chills, Denies fatigue and Denies fever(s) ENT: Comments: sore throat Cardiovascular: Cardiovascular: Denies chest pain, Denies rapid heart rate, Denies radiating jaw, neck or arm pain and Denies slow heart rate Respiratory: Respiratory: Denies cough, Reports dyspnea and Denies wheezing Comments: chest tightness Gastrointestinal: Gastrointestinal: Denies abdominal pain, Denies diarrhea, Denies nausea and Denies vomiting Integumentary/Breasts: Skin/Breast: Denies rash Neurologic: Denies vertigo, Denies dizziness, Denies syncope and Denies headache(s) Allergic/Immunologic: Allergic/Immunologic: Denies throat swelling, Denies tongue swelling and Denies wheezing PMFSH Past Medical History Medical History Anxiety Breast cancer CHF (congestive heart failure) Collagenous colitis Depression DM type 2 (diabetes mellitus, type 2) DVT (deep venous thrombosis) Hypothyroid IBS (irritable bowel syndrome) Kidney stone Morbid obesity Multiple thyroid nodules LUL on CPAP Peripheral neuropathy Pulmonary embolism positive for coagulation workup RLS (restless legs syndrome) 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) Surgical History Surgical History H/O hernia repair H/O mastectomy bilateral History of cardiac catheterization no CAD noted
--- NOTE | 2022-03-13 10:50 | ECG_ITS ---
Measurements Intervals [place] Rate: 93 P: 8 NE: 145 QRS: 0 QRSD: 89 T: 30 QT: 358 QTc: 446 Interpretive Statements SINUS RHYTHM INCOMPLETE RIGHT BUNDLE BRANCH BLOCK BASELINE ARTIFACT- II, III, AVL, AVF BORDERLINE ECG COMPARED TO ECG 01/13/2022 02:15:41 NO SIGNIFICANT CHANGES Electronically Signed On 03-13-2022 16:51:38 MANAGER OF OPERATIONS by Jonatan HERNANDEZ
== END 2022-03-13 11:24 | disposition short-term general hospital (02) ==
PROVIDERS: Emergency Provider Nurse Practitioner Family; PCP Internal Medicine
DX: R06.02 Shortness of breath (principal); R07.9 Chest pain, unspecified; J02.9 Acute pharyngitis, unspecified; Z85.3 Personal history of malignant neoplasm of breast; I50.9 Heart failure, unspecified; E11.9 Type 2 diabetes mellitus without complications; Z86.718 Personal history of other venous thrombosis and embolism; E03.9 Hypothyroidism, unspecified; E66.01 Morbid (severe) obesity due to excess calories; Z68.43 Body mass index [BMI] 50.0-59.9, adult; G47.33 Obstructive sleep apnea (adult) (pediatric); Z86.711 Personal history of pulmonary embolism; Z87.891 Personal history of nicotine dependence; Z20.822 Contact with and (suspected) exposure to COVID-19
CPT/HCPCS: 87081; 87426; 87880; 93005; 99213; C9803; G0463

== ENCOUNTER 2022-03-13 11:40 | Emergency (ER) | payer MEDICARE, MEDICAID, SELFPAY ==
--- NOTE | ~2022-03-13 | CT_ITS ---
EXAMINATION: CTA chest PE protocol DATE: 03/13/2022 13:54 INDICATION: SOB, hsx of DVT TECHNIQUE: Computed tomography angiography (CTA) of the chest was performed with 100 mL Omnipaque-350 intravenous contrast timed to evaluate the pulmonary arteries. Coronal maximum intensity projection 3D-reconstructions were created by the technologist. The dose-length product (DLP) was 994.88 mGy-cm. Automated exposure control and iterative reconstruction technique were employed. COMPARISON: X-ray chest, same date. CTPA 05/09/2021 and 12/28/2019. FINDINGS: Lung parenchyma and airways: Cluster of 4 mm and smaller nodules in the dependent left lower lobe, un changed over 2 years and requires no additional follow-up. Mild senescent/interstitial change. Pleura: Unremarkable. Thoracic inlet, axillae and chest wall: Subcentimeter calcified left thyroid nodule. 1.8 cm calcified right thyroid nodule. Thoracic aorta: Mild ectasia and arch calcification. Mediastinum: Mild central pulmonary artery enlargement as can be seen with pulmonary arterial hyperte nsion. Heart and pericardium: Normal. Coronary artery calcifications: Mild. Upper abdomen: No significant finding. Bones: No acute osseous finding. Pulmonary arteries: Study quality: Adequate. No pulmonary emboli detected. IMPRESSION: No CT evidence of acute pulmonary embolus. Calcified 1.8 cm right thyroid nodule, consider referral f or nonemergent, outpatient thyroid ultrasound for further characterization. Reviewed, dictated and finalized at location K. IRER IMPRESSION: No CT evidence of acute pulmonary embolus. Calcified 1.8 cm right thyroid nodul e, consider referral for nonemergent, outpatient thyroid ultrasound for further characterization.
--- NOTE | ~2022-03-13 | XR_ITS ---
EXAMINATION: XR chest 2V DATE: 03/13/2022 12:21 INDICATION: Dorsal breath. Sore throat. TECHNIQUE: frontal and lateral views of the chest were obtained. COMPARISON: Chest radiograph dated 01/13/2022 FINDINGS: Linear band of discoid atelectasis/scarring at the anterior left midlung zone. No other airspace opac ities, pulmonary edema, pleural effusion or pneumothorax. The cardiomediastinal silhouette is normal. Mitral annular calcification. Spinal stimulator leads project over the posterior central canal of th e thoracic spine at level of T7 and T8. IMPRESSION: 1. Mild linear discoid atelectasis in the anterior left midlung zone. Reviewed, dictated and finalized at location A. K SAFETY INSPECTOR
[2022-03-13 11:51] VITALS: BP 151/80; PULSE 84; PULSE 87; RESP 15; RESP 16; TEMP 36.7; O2SAT 100; O2SAT 99
--- NOTE | 2022-03-13 12:12 | ED.GENADULT ---
HPI - General Adult General Chief complaint: Shortness of Breath/Dyspnea Stated complaint: SOB-sent by [facility] Time Seen by Provider: 03/13/22 11:52 History of Present Illness HPI narrative: 66-year-old female presenting to the emergency department for evaluation of sore throat and some shortness of breath. Patient states that yesterday she began developing the symptoms. She reports that last night her throat was so sore she could not even drink water. Patient presented to the [facility] and was instructed to present to the emergency department for evaluation due to her shortness of breath. Upon arrival emerged department patient is afebrile and is saturating 100% on room air. Patient does have a history of breast cancer, DVT, peripheral neuropathy, type 2 diabetes. Related Data Home Medications Medication Instructions Recorded Confirmed amitriptyline 25 mg tablet 25 mg PO BID 01/06/20 03/13/22 exemestane 25 mg tablet 25 mg PO DAILY 01/06/20 03/13/22 insulin glargine 100 unit/mL (3 50 unit subcut DAILY 01/06/20 03/13/22 mL) subcutaneous pen (Lantus Solostar U-100 Insulin) insulin lispro 100 unit/mL 26 unit subcut TID 01/06/20 03/13/22 subcutaneous pen lisinopril 20 mg tablet 20 mg PO DAILY 01/06/20 03/13/22 pen needle, diabetic 31 gauge x 01/06/20 03/13/22 5/16 (BD Ultra-Fine Short Pen Needle) rivaroxaban 20 mg tablet (Xarelto) 20 mg PO DAILY 01/06/20 03/13/22 ropinirole 5 mg tablet 5 mg PO HS 01/06/20 03/13/22 oxybutynin chloride 5 mg tablet 5 mg PO DAILY 03/13/22 03/13/22 Allergies Allergy/AdvReac Type Severity Reaction Status Date / Time ceftriaxone Allergy Severe SOB Verified 03/13/22 10:36 cephalexin Allergy Severe Difficulty Verified 03/13/22 10:36 Breathing Cephalosporins Allergy Severe Difficulty Verified 03/13/22 10:36 Breathing lorazepam Allergy Severe Swelling Verified 03/13/22 10:36 metoclopramide Allergy Intermediate Other Verified 03/13/22 10:36 chlorhexidine Allergy Mild BLISTERING Verified 03/13/22 10:36 levofloxacin Allergy Mild Hives / Verified 03/13/22 10:36 Red Face trazodone Allergy Swelling Verified 03/13/22 10:36 of Lip/Tongue/Throat oxycodone AdvReac Mild Vomiting Verified 03/13/22 10:36 Review of Systems Review of Systems: CONSTITUTIONAL: Denies fever, chills, or sweats. EYES: Denies visual changes, redness, or discharge. ENT: See HPI CARDIOVASCULAR: Denies chest pain, palpitations, or edema. RESPIRATORY: See HPI GASTROINTESTINAL: Denies abdominal pain, nausea, vomiting, or diarrhea. GENITOURINARY: Denies dysuria or hematuria. SKIN: Denies rash or itching. MUSCULOSKELETAL: Denies back pain, joint pain, or myalgia. NEUROLOGIC: Denies headache, numbness, or weakness. [facility] Past Medical History Medical History Anxiety Breast cancer CHF (congestive heart failure) Collagenous colitis Depression DM type 2 (diabetes mellitus, type 2) DVT (deep venous thrombosis) Hypothyroid IBS (irritable bowel syndrome) Kidney stone Morbid obesity Multiple thyroid nodules LUL on CPAP Peripheral neuropathy Pulmonary embolism positive for coagulation workup RLS (restless legs syndrome) 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) Surgical History Surgical History H/O hernia repair H/O mastectomy bilateral History of cardiac catheterization no CAD noted History of esophagogastroduodenoscopy (EGD) History of right oophorectomy History of total right knee replacement Hx of cholecystectomy Hx of colonoscopy S/P insertion of spinal cord stimulator S/P ureteral stent placement Family History Family History Mother Diabetes mellitus Father Prostate carcinoma Sibling Breast cancer Social History Social History Social History: Patient lives at home with [facility]
[2022-03-13 12:19] LABS: Basophils Absolute Auto 0.1 K/mm3 (0.0-0.1); Basophils Percent Auto 0.4 % (0.2-1.2); Eosinophils Absolute Auto 0.1 K/mm3 (0-0.3); Hematocrit 39.1 % (37.0-47.0); Hemoglobin 12.5 g/dL (12.0-15.0); Immature Granulocyte Absolute 0.07 K/mm3 (0.00-0.031); Immature Granulocyte Percent A 0.5 % (0-0.5); Lymphocytes Absolute Auto 2.16 K/mm3 (0.9-3.2); Lymphocytes Percent Auto 15.7 % (18.3-44.2); Mean Corpuscular Hemoglobin 28.9 pg (26-34); Mean Corpuscular Volume 90.5 fl (80-100); Mean Platelet Volume 9.6 fl (7.4-10.4); Monocytes Absolute Auto 0.9 K/mm3 (0.1-0.6); Monocytes Percent Auto 6.5 % (2.6-8.5); Neutrophils Absolute Auto 10.5 K/mm3 (1.3-6.7); Neutrophils Percent Auto 75.9 % (45.5-73.1); Platelet Count Result 278 k/mm3 (150-375); Red Blood Count 4.32 M/mm3 (4.2-5.4); White Blood Count 13.8 K/mm3 (4.5-10.0)
[2022-03-13 12:30] LABS: Alanine Aminotransferase 26 U/L (6-35); Albumin Level 4.1 g/dL (3.5-5.1); Alkaline Phosphatase 102 U/L (38-126); Anion Gap 8 mmol/L (8-16); Aspartate Amino Transferase 28 U/L (14-36); Bilirubin,Total 1.1 mg/dL (0.2-1.3); Blood Urea Nitrogen 15 mg/dL (7-17); Calcium 9.4 mg/dL (8.4-10.2); Carbon Dioxide 31 mmol/L (22-30); Chloride 98 mmol/L (98-107); Estimated CRCL calculation 101 ml/min; Estimated Glomerular Filt Rate > 60; Glucose 171 mg/dL (65-110); Potassium 4.1 mmol/L (3.4-5.0); Sodium 137 mmol/L (137-145)
[2022-03-13 12:59] LABS: Influenza A QL RT-PCR Negative (Negative); Influenza B QL RT-PCR Negative (Negative); SARS-CoV-2 RNA PCR Negative
[2022-03-13] MEDS: HYDROcodone/acetaminophen (*CRX) 5-325 MG TABLET 1 TAB PO (13:04)
[2022-03-13] MEDS: ALBUTEROL SULFATE NEB 2.5 MG/3 ML INH 5 MG INHALATION (13:06)
[2022-03-13 13:08] VITALS: PULSE 78; RESP 20
[2022-03-13 13:21] VITALS: PULSE 87; RESP 20
[2022-03-13 14:08] VITALS: BP 144/86; PULSE 86; RESP 16; O2SAT 98
[2022-03-13 15:13] LABS: NT Pro B Type Natriuretic Pept 57 pg/mL (5-100)
[2022-03-13] MEDS: CLINDAMYCIN HCL 150 MG CAP PO (15:56)
[2022-03-13 16:06] VITALS: BP 159/86; PULSE 68; RESP 16; O2SAT 97
--- NOTE | 2022-03-14 11:58 | ECG_ITS ---
Measurements Intervals [place] Rate: 82 P: 7 HI: 126 QRS: 2 QRSD: 85 T: 29 QT: 375 QTc: 441 Interpretive Statements SINUS RHYTHM WITH SINUS ARRHYTHMIA BASELINE WANDER- II, III NORMAL ECG COMPARED TO ECG 03/13/2022 10:50:01 SINUS ARRHYTHMIA NOW PRESENT Electronically Signed On 03-14-2022 13:10:17 BLUEPRINT TRACER by Jonatan Parra D.O.
== END 2022-03-13 16:06 | disposition home or self-care (01) ==
PROVIDERS: Emergency Medicine; Emergency Provider Emergency Medicine; PCP Internal Medicine
DX: J02.9 Acute pharyngitis, unspecified (principal); Z20.822 Contact with and (suspected) exposure to COVID-19; E11.42 Type 2 diabetes mellitus with diabetic polyneuropathy; I50.9 Heart failure, unspecified; E03.9 Hypothyroidism, unspecified; K58.9 Irritable bowel syndrome, unspecified; G47.33 Obstructive sleep apnea (adult) (pediatric); G25.81 Restless legs syndrome; E66.01 Morbid (severe) obesity due to excess calories; Z68.43 Body mass index [BMI] 50.0-59.9, adult; F41.9 Anxiety disorder, unspecified; Z90.13 Acquired absence of bilateral breasts and nipples; Z90.721 Acquired absence of ovaries, unilateral; Z85.3 Personal history of malignant neoplasm of breast; Z86.718 Personal history of other venous thrombosis and embolism; Z86.711 Personal history of pulmonary embolism; Z87.440 Personal history of urinary (tract) infections; Z87.442 Personal history of urinary calculi; Z96.651 Presence of right artificial knee joint; Z96.82 Presence of neurostimulator; Z87.891 Personal history of nicotine dependence; Z79.4 Long term (current) use of insulin; Z79.01 Long term (current) use of anticoagulants
CPT/HCPCS: 36415; 71046; 71275; 80053; 83880; 85025; 87081; 87426; 87636; 87880; 93005; 94640; 99283; A9270; C9803; Q9967

== ENCOUNTER 2022-03-19 17:17 | Observation (INO) | payer MEDICARE, MEDICAID, SELFPAY ==
[2022-03-19] VITALS (18 sets, daily range): BP systolic 117–169; BP diastolic 54–97; PULSE 75–105; RESP 11–25; TEMP 36.2; O2SAT 94–100; BMI 55.0
--- NOTE | ~2022-03-19 | NM_ITS ---
EXAMINATION: NM herb stress w perfusion DATE: 03/21/2022 12:16 INDICATION: Chest pain. TECHNIQUE: Rest images were obtained following intravenous administration of 10 mCi Tc99m tetrofosmin (Myoview). The patient was infused intravenously with Lexiscan (regadenoson). Then, 31 mCi Tc99m tet rofosmin (Myoview) was administered intravenously, and stress images were obtained. Data was reconstr ucted into short axis and horizontal and vertical long axis SPECT images. Gated SPECT images were als o obtained. COMPARISON: Myocardial perfusion imaging 05/07/2018 FINDINGS: There is no definite reversible or fixed perfusion abnormality to suggest ischemia or infar ction. There is no segmental wall motion abnormality. Left ventricular ejection fraction measures 6 9%. IMPRESSION: 1. No definite ischemia or infarct. 2. Normal left ventricular ejection fraction measuring 69%. Reviewed, dictated and finalized at location A. CONTROLLED MACHINE STITCHER
--- NOTE | ~2022-03-19 | US_ITS ---
EXAMINATION: US thyroid DATE: 03/21/2022 10:14 INDICATION: Thyroid nodule. TECHNIQUE: Multiple ultrasound images of the thyroid were obtained. COMPARISON: None. FINDINGS: The right thyroid lobe measures 3.9 x 1.8 x 2.1 cm. The left thyroid lobe measures 3.6 x 1.6 x 1.4 c m. In the right thyroid lobe, there is a 2.8 cm solid, hypoechoic, wider than tall nodule with rodney h margin and macrocalcifications (TI-RADS TR4). In the left thyroid lobe, there is a 1.4 cm solid, hy poechoic, wider than tall nodule with smooth margin and macrocalcifications (TR4). IMPRESSION: 1. Multinodular goiter. Ultrasound-guided fine-needle aspiration of the right thyroid nodule is recom mended. Reviewed, dictated and finalized at location A. IC COORDINATOR IMPRESSION: 1. Multinodular goiter. Ultrasound-guided fine-needle aspiration of the right t hyroid nodule is recommended.
--- NOTE | ~2022-03-19 | CT_ITS ---
EXAMINATION: CTA chest PE protocol DATE: 03/19/2022 20:26 INDICATION: midsternal CP, SOB, dysphagia, Hx of PE TECHNIQUE: Computed tomography angiography (CTA) of the chest was performed with 100 mL Omnipaque-350 intravenous contrast timed to evaluate the pulmonary arteries. Coronal maximum intensity projection 3D-reconstructions were created by the technologist. The dose-length product (DLP) was 902.89 mGy-cm. Automated exposure control and iterative reconstruction technique were employed. COMPARISON: 03/13/2022. FINDINGS: Lung parenchyma and airways: Stable peripheral reticular opacities in the lingula. Bibasilar scar/ate lectasis. Pleura: Unremarkable. Thoracic inlet, axillae and chest wall: 1.9 cm calcified right thyroid nodule. Subcentimeter calcifie d left thyroid nodule. Thoracic aorta: Mild arch calcification. Aortic ectasia measuring up to 4.2 cm at the ascending aorta . Mediastinum: Dilated left and right main pulmonary arteries as can be seen with pulmonary arterial hy pertension. Heart and pericardium: Mild mitral valve/annulus calcification. Coronary artery calcifications: Mild. Upper abdomen: No significant finding. Bones: No acute osseous finding. Pulmonary arteries: Study quality: Adequate. No pulmonary emboli detected. IMPRESSION: No CT evidence of acute pulmonary embolus. No acute cardiopulmonary disease. 1.9 cm calcified right t hyroid nodule, consider outpatient thyroid ultrasound for further characterization. Reviewed, dictated and finalized at location K. TECHNICIAN IMPRESSION: No CT evidence of acute pulmonary embolus. No acute cardiopulmonary disease. 1. 9 cm calcified right thyroid nodule, consider outpatient thyroid ultrasound for further characterization.
--- NOTE | ~2022-03-19 | XR_ITS ---
EXAMINATION: XR chest 2V Exam Date/Time: 03/19/2022 18:40 COTTON BAG CLIPPER HISTORY: SOB, WEAKNESS, CHF, HX BREAST CANCER, HX PE, HX THYROID MASS Comparison: 03/13/2022, CTPA 03/13/2022. RESULT: Lines, tubes, and devices: None. Lungs and pleura: Ill-defined airspace opacities in the right lower lung. Cardiomediastinal silhouette: Stable. Other: No acute osseous or upper abdominal finding. IMPRESSION: Right lower lobe airspace disease may reflect pneumonia in the appropriate clinical context. Reviewed, dictated and finalized at location K. ON BAG CLIPPER IMPRESSION: Right lower lobe airspace disease may reflect pneumonia in the appropriate clin ical context.
--- NOTE | 2022-03-19 18:01 | ECG_ITS ---
Measurements Intervals [place] Rate: 78 P: 33 OR: 138 QRS: 3 QRSD: 78 T: 24 QT: 366 QTc: 417 Interpretive Statements SINUS RHYTHM WITH SINUS ARRHYTHMIA NORMAL ECG COMPARED TO ECG 03/13/2022 11:58:32 NO SIGNIFICANT CHANGES Electronically Signed On 03-20-2022 9:09:24 FIRE EQUIPMENT REPAIRER INSPECTOR by Jonatan Parra D.O.
--- NOTE | 2022-03-19 18:02 | ED.CHESTPAIN ---
HPI - Chest Pain General Chief Complaint: Chest Pain <STEPH Powell Last Filed: 03/20/22 03:06> Stated Complaint: CP / DIFFICULTY BREATHING <STEPH Powell Last Filed: 03/20/22 03:06> Time Seen by Provider: 03/19/22 17:32 <STEPH Powell Last Filed: 03/20/22 03:06> Source: patient <STEPH Powell Last Filed: 03/20/22 03:06> Mode of arrival: EMS <STEPH Powell Last Filed: 03/20/22 03:06> Limitations: no limitations <STEPH Powell Last Filed: 03/20/22 03:06> History of Present Illness HPI narrative: Patient is a 66 y/o female who presents to the ED via EMS with report of CP and SOB. Patient reports having increased difficulty breathing over the last several days. She was seen in the ED last week and prescribed clindamycin for pharyngitis. She c/o worsening SOB, fatigue today. She also woke up from a nap today with pain in her midsternal chest, described as a heaviness and pressure. Pain has been intermittent since then. Patient denies recent cough or cold symptoms, fever, abdominal pain, nausea, vomiting. <STEPH Powell Last Filed: 03/20/22 03:06> Related Data Home Medications: Home Medications Medication Instructions Recorded Confirmed amitriptyline 25 mg tablet 25 mg PO BID 01/06/20 03/19/22 exemestane 25 mg tablet 25 mg PO DAILY 01/06/20 03/19/22 insulin glargine 100 unit/mL (3 50 unit subcut QAM 01/06/20 03/19/22 mL) subcutaneous pen (Lantus Solostar U-100 Insulin) pen needle, diabetic 31 gauge x 01/06/20 03/19/22 5/16 (BD Ultra-Fine Short Pen Needle) rivaroxaban 20 mg tablet (Xarelto) 20 mg PO DAILY 01/06/20 03/19/22 ropinirole 5 mg tablet 5 mg PO HS 01/06/20 03/19/22 oxybutynin chloride 5 mg tablet 5 mg PO DAILY 03/13/22 03/19/22 hydrocodone 7.5 mg-acetaminophen 1 tablet PO Q6H PRN Pain 03/19/22 03/19/22 325 mg tablet insulin lispro 100 unit/mL 22 unit subcut TID 03/19/22 03/19/22 subcutaneous pen (Humalog KwikPen (U-100) Insulin) ondansetron HCl 4 mg tablet 4 mg PO Q6H PRN Nausea 03/19/22 03/19/22 <STEPH Powell Last Filed: 03/20/22 03:06> Allergies/Adverse Reactions: Allergies Allergy/AdvReac Type Severity Reaction Status Date / Time ceftriaxone Allergy Severe SOB Verified 03/13/22 10:36 cephalexin Allergy Severe Difficulty Verified 03/13/22 10:36 Breathing Cephalosporins Allergy Severe Difficulty Verified 03/13/22 10:36 Breathing lorazepam Allergy Severe Swelling Verified 03/13/22 10:36 metoclopramide Allergy Intermediate Other Verified 03/13/22 10:36 chlorhexidine Allergy Mild BLISTERING Verified 03/13/22 10:36 levofloxacin Allergy Mild Hives / Verified 03/13/22 10:36 Red Face trazodone Allergy Swelling Verified 03/13/22 10:36 of Lip/Tongue/Throat oxycodone AdvReac Mild Vomiting Verified 03/13/22 10:36 <Larissa Tony PA-C - Last Filed: 03/20/22 03:06> Review of Systems Review of Systems: CONSTITUTIONAL: Reports fatigue. Denies fever, chills, or sweats. ENT: Denies rhinorrhea, congestion, sore throat. CARDIOVASCULAR: Reports midsternal CP. RESPIRATORY: Reports SOB. Denies cough. GASTROINTESTINAL: Denies abdominal pain, nausea, vomiting, or diarrhea. GENITOURINARY: Denies dysuria or hematuria. <STEPH Powell Last Filed: 03/20/22 03:06> All systems reviewed & are unremarkable except as noted in HPI and below <STEPH Powell Last Filed: 03/20/22 03:06> PMFSH Past Medical History Medical History: Medical History Anxiety Breast cancer CHF (congestive heart failure) Chronic back pain Collagenous colitis COVID-19 Depression DM type 2 (diabetes mellitus, type 2) DVT (deep venous thrombosis) Hypothyroid IBS (irritable bowel syndrome) Kidney stone Morbid obesity Multiple thyroid nodules
[2022-03-19] MEDS: ASPIRIN 81 MG CHEWABLE TABLET 324 MG PO (18:10)
[2022-03-19] MEDS: NITROGLYCERIN SL 0.4 MG TABLET SUBLINGUAL (18:10)
[2022-03-19 18:25] LABS: Basophils Percent Auto 0.3 % (0.2-1.2); Eosinophils Absolute Auto 0.3 K/mm3 (0-0.3); Eosinophils Percent Auto 2.2 % (0-4.4); Hematocrit 41.6 % (37.0-47.0); Hemoglobin 12.8 g/dL (12.0-15.0); Immature Granulocyte Absolute 0.07 K/mm3 (0.00-0.031); Immature Granulocyte Percent A 0.5 % (0-0.5); Lymphocytes Absolute Auto 2.52 K/mm3 (0.9-3.2); Lymphocytes Percent Auto 19.6 % (18.3-44.2); Mean Corpuscular HGB Conc 30.8 g/dl (32-36); Mean Corpuscular Hemoglobin 28.7 pg (26-34); Mean Corpuscular Volume 93.3 fl (80-100); Mean Platelet Volume 9.5 fl (7.4-10.4); Monocytes Absolute Auto 0.9 K/mm3 (0.1-0.6); Monocytes Percent Auto 6.6 % (2.6-8.5); Neutrophils Absolute Auto 9.1 K/mm3 (1.3-6.7); Neutrophils Percent Auto 70.8 % (45.5-73.1); Platelet Count Result 282 k/mm3 (150-375); Red Blood Count 4.46 M/mm3 (4.2-5.4); Red Cell Distribution Width 13.9 % (11.5-14.5); White Blood Count 12.9 K/mm3 (4.5-10.0)
[2022-03-19 18:33] LABS: INR 1.3; Prothrombin Time 15.3 Seconds (11.1-14.7)
[2022-03-19 18:34] LABS: Partial Thromboplastin Time 29.1 SECONDS (22.3-36.8)
[2022-03-19 18:37] LABS: Alanine Aminotransferase 20 U/L (6-35); Albumin Level 3.2 g/dL (3.5-5.1); Alkaline Phosphatase 69 U/L (38-126); Anion Gap 6 mmol/L (8-16); Aspartate Amino Transferase 27 U/L (14-36); Bilirubin,Total 0.4 mg/dL (0.2-1.3); Blood Urea Nitrogen 15 mg/dL (7-17); Calcium 7.8 mg/dL (8.4-10.2); Carbon Dioxide 25 mmol/L (22-30); Chloride 108 mmol/L (98-107); Estimated CRCL calculation 96 ml/min; Estimated Glomerular Filt Rate > 60; Glucose 136 mg/dL (65-110); Lipase 47 U/L (23-300); Potassium 3.6 mmol/L (3.4-5.0); Sodium 139 mmol/L (137-145)
[2022-03-19 18:49] LABS: NT Pro B Type Natriuretic Pept 57 pg/mL (5-100); Troponin I < 0.012 ng/mL (0.000-0.034)
[2022-03-19 19:59] LABS: Appearance Urine Clear (Clear); Bilirubin Urine Negative (Negative); Blood Urine 1+ (Negative); Color Urine Yellow (Yellow); Glucose Urine UA Negative (Negative); Ketones Urine Negative (Negative); Leukocyte Esterase Ur Negative LEU/UL (Negative); Nitrate Urine Negative (Negative); Protein Urine Negative (Negative); Specific Grav Ur 1.025 (1.001-1.035); Urobilinogen Urine 0.2 mg/dL (<2.0)
[2022-03-19 20:05] LABS: Mucus Urine Rare /lpf; WBC Urine 0-3 /hpf
[2022-03-19 20:06] LABS: Add Urine Microscopic? YES
[2022-03-19 21:41] LABS: Troponin I < 0.012 ng/mL (0.000-0.034)
[2022-03-19 21:54] LABS: Influenza A QL RT-PCR Negative (Negative); Influenza B QL RT-PCR Negative (Negative); SARS-CoV-2 RNA PCR Negative
--- NOTE | 2022-03-19 22:24 | PM.IMHP ---
H&P: HPI History of Present Illness Date/Time: 03/19/22 22:24 Chief Complaint: Chest pain Narrative: This is a 66-year-old female who came to the emergency room with complaints of chest pain and shortness of breath. The patient was having difficulty breathing over the last few days. The patient came to the emergency department last week and was prescribed clindamycin for pharyngitis. She complained of worsening shortness breath and fatigue today. She woke up from a nap and had midsternal chest pain. She described it as heavy this and pressure. The pain has been intermittent. She has no fever chills or any nausea vomiting at this time. Her white count is 12.9. Calcium is low 7.8. Troponin negative x2. Influenza A/B and COVID are negative. CTA was read asNo CT evidence of acute pulmonary embolus. No acute cardiopulmonary disease. 1.9 cm calcified right thyroid nodule, consider outpatient thyroid ultrasound for further characterization. Chest x-ray was read as right lower lobe airspace disease may reflect pneumonia in the appropriate clinical context. Cardiology has been consulted by the ER physician. The patient was given an aspirin in the emergency room. EKG was read as sinus rhythm with sinus arrhythmia. The patient is being admitted to observation status on the date of service of 03/19/2022. Review of Systems Review of Systems: See HPI All systems reviewed & are unremarkable except as noted in HPI and below Constitutional: Constitutional: Reports as per HPI and Reports no additional constitutional complaints Eyes: Eyes: Reports as per HPI and Reports no additional eye complaints ENT: Reports system reviewed and no additional complaints, except as documented and Reports Normal hearing present Cardiovascular: Cardiovascular: Reports no additional cardiovascular complaints Respiratory: Respiratory: Reports no additional respiratory complaints and Reports no additional respiratory complaints Gastrointestinal: Gastrointestinal: Reports as per HPI and Reports no additional gastrointestinal complaints Musculoskeletal: Musculoskeletal: Reports no additional musculoskeletal complaints Integumentary/Breasts: Skin/Breast: Reports system reviewed and no additional complaints, except as docu and Reports as per HPI Neurologic: Reports system reviewed and no additional complaints, except as documented, Reports as per HPI and Reports Normal hearing present Psychiatric: Psychiatric: Reports no additional psychiatric complaints and Reports as per HPI Endocrine: Endocrine: Reports no additional endocrine complaints Hematologic/Lymphatic: Hematologic/Lymphatic: Reports no additional hematologic/lymphatic complaints Allergic/Immunologic: Allergic/Immunologic: Reports no additional allergic/immunologic complaints PMFSH Past Medical History Medical History (Updated 03/20/22 @ 01:12 by Sonali Snell NP) Anxiety Breast cancer CHF (congestive heart failure) Chronic back pain Collagenous colitis COVID-19 Depression DM type 2 (diabetes mellitus, type 2) DVT (deep venous thrombosis) Hypothyroid IBS (irritable bowel syndrome) Kidney stone Morbid obesity Multiple thyroid nodules LUL on CPAP Peripheral neuropathy Pulmonary embolism positive for coagulation workup RLS (restless legs syndrome) 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) Surgical History Surgical History H/O hernia repair H/O mastectomy bilateral History of cardiac catheterization no CAD noted History of esophagogastroduodenoscopy (EGD) History of right oophorectomy History of total right knee replacement Hx of cholecystectomy Hx of colonoscopy S/P insertion of spinal cord stimulator S/P ureteral stent placement Family History Family History Mother Diabetes mellitus Acute myocardial infarction Cerebrovascular accident Hypertension Congestive heart fail
--- NOTE | 2022-03-19 23:15 | ADMGEN ---
This patient, Karly Marques, was admitted to IMU Room 212-01 at 2315. Patient/family oriented to hospital policies and general routines including ID bracelet, bed and alarms, visiting hours, pain management, procedures, bathroom and other care routines, personal items, smoking policy, room service/diet, and visiting hours. Information on how to activate the Rapid Response Team has been discussed. Patient/Family are encouraged to report perceived risks to care and to ask questions if they do not understand what they are told or what they should do.
[2022-03-20] VITALS (20 sets, daily range): BP systolic 113–147; BP diastolic 61–96; PULSE 69–92; RESP 18–24; TEMP 35.8–36.7; O2SAT 68–99
[2022-03-20] MEDS: rOPINIRole HCL 1 MG TABLET 5 MG PO ×2 (00:36→21:34)
[2022-03-20] MEDS: HYDROcodone/acetaminophen (*CRX) 5-325 MG TABLET 1 TAB PO (00:41)
[2022-03-20 01:04] LABS: Troponin I < 0.012 ng/mL (0.000-0.034)
[2022-03-20] MEDS: HYDROcodone/acetaminophen (*CRX) 7.5-325 MG TABLET 1 TAB PO ×4 (01:38→21:44)
[2022-03-20 05:40] LABS: Basophils Absolute Auto 0.1 K/mm3 (0.0-0.1); Basophils Percent Auto 0.5 % (0.2-1.2); Eosinophils Absolute Auto 0.4 K/mm3 (0-0.3); Eosinophils Percent Auto 3.5 % (0-4.4); Hematocrit 37.4 % (37.0-47.0); Immature Granulocyte Absolute 0.06 K/mm3 (0.00-0.031); Immature Granulocyte Percent A 0.5 % (0-0.5); Lymphocytes Absolute Auto 2.71 K/mm3 (0.9-3.2); Lymphocytes Percent Auto 24.7 % (18.3-44.2); Mean Corpuscular HGB Conc 32.1 g/dl (32-36); Mean Corpuscular Hemoglobin 29.3 pg (26-34); Mean Corpuscular Volume 91.4 fl (80-100); Mean Platelet Volume 9.6 fl (7.4-10.4); Monocytes Absolute Auto 0.7 K/mm3 (0.1-0.6); Monocytes Percent Auto 6.7 % (2.6-8.5); Neutrophils Percent Auto 64.1 % (45.5-73.1); Platelet Count Result 262 k/mm3 (150-375); Red Blood Count 4.09 M/mm3 (4.2-5.4); Red Cell Distribution Width 14.2 % (11.5-14.5)
[2022-03-20 05:48] LABS: Lactic Acid Reflex 1.5 mmol/L (0.7-2.0)
[2022-03-20 05:51] LABS: Alanine Aminotransferase 21 U/L (6-35); Albumin Level 3.8 g/dL (3.5-5.1); Alkaline Phosphatase 85 U/L (38-126); Anion Gap 8 mmol/L (8-16); Aspartate Amino Transferase 23 U/L (14-36); Bilirubin,Total 0.5 mg/dL (0.2-1.3); Blood Urea Nitrogen 16 mg/dL (7-17); Carbon Dioxide 27 mmol/L (22-30); Chloride 103 mmol/L (98-107); Estimated CRCL calculation 102 ml/min; Estimated Glomerular Filt Rate > 60; Glucose 189 mg/dL (65-110); Magnesium 1.7 mg/dL (1.6-2.3); Potassium 4.4 mmol/L (3.4-5.0); Sodium 138 mmol/L (137-145)
[2022-03-20 05:56] LABS: Hemoglobin A1C 8.3 % (<5.7)
[2022-03-20 07:49] LABS: Free T4 Free Thyroxine Reflex 0.98 ng/dL (0.78-2.19)
[2022-03-20 08:05] LABS: Glucose Point of Care 154 mg/dl (65-105)
[2022-03-20] MEDS: OXYBUTYNIN CHLORIDE 5 MG TABLET PO (08:45)
[2022-03-20] MEDS: INSULIN GLARGINE (*BKC) 100 UNITS/ML 50 UNITS SUB-Q (10:42)
--- NOTE | 2022-03-20 10:47 | PM.CNCAR ---
Assessment and Plan Assessment and plan (1) Chest pain: Code(s): R07.9 - Chest pain, unspecified Status: Acute Plan CTA negative for PE. Troponins negative x 3. EKG without ischemic changes. An echo and Lexiscan have been ordered, which will be done tomorrow. Further recommendations pending the results of these. History of Present Illness History of Present Illness Consult date/time: 03/20/22 10:47 Requesting physician: Larissa Tony PA-C Consult reason: chest pain Reason For Visit: CP SOB Narrative: We are being consulted for chest pain. This is a 66-year-old female with a history of PE/DVTs on Xarelto, LUL, T2DM, history of bilateral mastectomy for breast cancer, hypothyroidism who presented with shortness of breath and chest pain. Patient states that she began having shortness of breath a few days ago. Had anterior chest pain around 4PM yesterday which woke her up from her sleep. Chest pain felt like a pressure type of pain. Lasted for about 15 minutes or so. She is currently chest pain free. ED workup showed CTA negative for PE. Troponins negative. EKG without ischemic changes. An echo and Lexiscan have already been ordered. Review of Systems Review of Systems: 12-point ROS obtained. Negative, unless stated in HPI. [facility] Past Medical History Medical History Anxiety Breast cancer CHF (congestive heart failure) Chronic back pain Collagenous colitis COVID-19 Depression DM type 2 (diabetes mellitus, type 2) DVT (deep venous thrombosis) Hypothyroid IBS (irritable bowel syndrome) Kidney stone Morbid obesity Multiple thyroid nodules LUL on CPAP Peripheral neuropathy Pulmonary embolism positive for coagulation workup RLS (restless legs syndrome) 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) Surgical History Surgical History H/O hernia repair H/O mastectomy bilateral History of cardiac catheterization no CAD noted History of esophagogastroduodenoscopy (EGD) History of right oophorectomy History of total right knee replacement Hx of cholecystectomy Hx of colonoscopy S/P insertion of spinal cord stimulator S/P ureteral stent placement Family History Family History Mother Diabetes mellitus Acute myocardial infarction Cerebrovascular accident Hypertension Congestive heart failure Father Prostate carcinoma Sibling Breast cancer Acute myocardial infarction Chronic obstructive pulmonary disease Social History Social History Social History: Patient lives at home with daughter, Yunior, whom she designates as her surrogate MDM. Her PCP is Dr. Gale. She is thus former smoker. She is and disabled Code status Full Code Smoking packs per day: 0 Smoking cigarettes per day: 0.0 Years smoked: 2 Smoking pack-years: 0.00 Smoking status: Former smoker Tobacco type: cigarettes Second hand tobacco smoke exposure: Yes Additional smoking assessment comments: SMOKED FOR 3 YEARS Alcohol intake: never Substance use: never Substance use type: does not use Lack of Transportation: No Lack of Food: Never True Current Housing: I Have Housing Concerned About Future Housing: No Difficulty Paying Gas/Electric Bills: No Difficulty Paying for Meds: No Currently Unemployed: No Education: Associate Degree Difficulty w/ Childcare or Family Care: No Gender identity (if verbalized by the patient): Female Sexual Orientation (if Verbalized by the Patient): Straight or Heterosexual Spiritual care concerns: No Meds Home Medications and Allergies Home Medications Medication Instructions Recorded Confirmed Type amitriptyline 25 mg tablet 25 mg PO HS 01/06/20 03/20/22 History exemestane 25 mg tablet 25 mg PO DAILY 01/06/20 03/19/22 History ins
[2022-03-20 11:44] LABS: Total Triiodothyronine (T3) 1.48 NG/ML (0.97-1.69)
[2022-03-20 12:11] LABS: Glucose Point of Care 252 mg/dl (65-105)
[2022-03-20] MEDS: INSULIN ASPART (*BKC) 100 UNITS/ML SUB-Q ×2 (12:48→18:07)
[2022-03-20 16:29] LABS: Glucose Point of Care 224 mg/dl (65-105)
--- NOTE | 2022-03-20 17:28 | PM.IMPN ---
Progress Note: A&P Assessment and Plan (1) Chest pain: Code(s): R07.9 - Chest pain, unspecified Status: Acute Assessment and Plan: -the patient had no previous history of any coronary artery disease. -troponins were negative x3 -echo has been ordered. -Lexiscan has been ordered. -Cardiology consulted and appreciate their input -continue ASA. Check lipid (2) Shortness of breath: Code(s): R06.02 - Shortness of breath Status: Acute Assessment and Plan: -patient complains of SOB -CTA negative for PE and no obvious PNA -anxiety related? -stress test and echo ordered so will follow up on these results. (3) Hypothyroid: Code(s): E03.9 - Hypothyroidism, unspecified Status: Acute Assessment and Plan: -TSH mildly elevated but FT4 normal. -continue levothyroxine (4) Thyroid nodule: Code(s): E04.1 - Nontoxic single thyroid nodule Status: Acute Assessment and Plan: -CTA chest showing 1.9cm calcified right thyroid nodule. -thyroid US ordered (5) Pulmonary embolism: Code(s): I26.99 - Other pulmonary embolism without acute cor pulmonale Status: Acute Assessment and Plan: -the patient has a history of PEs and DVTs. -Her CTA was negative for PE today -continue with Xarelto (6) LUL on CPAP: Code(s): G47.33 - Obstructive sleep apnea (adult) (pediatric); Z99.89 - Dependence on other enabling machines and devices Status: Acute Assessment and Plan: -continue with home CPAP setting (7) Type II diabetes mellitus: Code(s): E11.9 - Type 2 diabetes mellitus without complications Status: Acute Assessment and Plan: -A1c 8.3 -Accu-Cheks AC and HS -sliding scale insulin with hypoglycemic protocol -continue with Lantus (8) Breast cancer: Code(s): C50.919 - Malignant neoplasm of unspecified site of unspecified female breast Status: Acute Assessment and Plan: -History of bilateral mastectomy. -the patient stated that it was estrogen receptive cancer and that she is on exemestane. However it is non formulary and she will need to bring her own. Subjective Date/time seen: 03/20/22 17:28 Interval history: 66yo female with hx of LUL, DM, and PE here for CP and SOB. Patient complains of feeling SOB and extremely tired. She does not wear O2 at home. No further CP. Eating okay. No n/v. No wheezing. She was seen in ED for sore throat and treated for strept throat. Her sore throat is better overall. Exam Narrative: AF 97.1 127/62 77 18 Gen - NARD lying semi-recumbent in bed Chest - CTA bilaterally, nml RR CV - RRR S1/S2. Tele showing PVCs Abd - Soft, obese, NT, +BS Ext - Non pitting edema Psych - Nml mood and affect Skin - Warm and dry Objective Data Vital Signs Vital Signs: Vital Signs - 24 hr 03/19/22 17:32 03/19/22 17:47 03/19/22 18:01 Temperature Pulse Rate 92 90 105 H Respiratory Rate 17 22 H 15 Blood Pressure 155/75 H 149/74 H 169/79 H Pulse Oximetry 98 95 97 Oxygen Delivery 03/19/22 18:48 03/19/22 19:17 03/19/22 19:52 Temperature Pulse Rate 83 78 83 Respiratory Rate 12 21 H 23 H Blood Pressure 151/88 H 139/84 Pulse Oximetry 98 100 99 Oxygen Delivery 03/19/22 20:28 03/19/22 20:31 03/19/22 21:16 Temperature Pulse Rate 84 96 78 Respiratory Rate 25 H 23 H 21 H Blood Pressure 150/75 H 134/86 132/80 Pulse Oximetry 96 94 96 Oxygen Delivery 03/19/22 21:31 03/19/22 21:46 03/19/22 22:01 Temperature Pulse Rate 78 80 75 Respiratory Rate 23 H 19 20 Blood Pressure 133/85 156/97 H 142/91 H Pulse Oximetry 95 95 94 Oxygen Delivery 03/19/22 22:16 03/19/22 22:32 03/19/22 22:46 Temperature Pulse Rate 76 86 77 Respiratory Rate 11 L 13 19 Blood Pressure 148/92 H 142/80 H 132/91 H Pulse Oximetry 97 96 98 Oxygen Delivery 03/19/22 22:48 03/19/22 23:15 03/20/22 01:09 Temperature 97.2
[2022-03-20] MEDS: RIVAROXABAN 20 MG TABLET PO (18:06)
[2022-03-20] MEDS: ASPIRIN 81 MG CHEWABLE TABLET PO (18:06)
--- NOTE | 2022-03-20 18:35 | PHAR ---
RX [id number] [facility] BOTTLE IDENTIFIED TO CONTAIN DRUG NAME: EXEMESTANE INGREDIENTS: EXEMESTANE -- 25 MG COLOR: OFF-WHITE TO SLIGHT [place] SHAPE: [place]
[2022-03-20 21:14] LABS: Glucose Point of Care 189 mg/dl (65-105)
[2022-03-20] MEDS: AMITRIPTYLINE HCL 25 MG TABLET PO (21:35)
--- NOTE | 2022-03-20 21:39 | ECG_ITS ---
Measurements Intervals [place] Rate: 90 P: 96 RI: 147 QRS: 93 QRSD: 85 T: 90 QT: 360 QTc: 441 Interpretive Statements SINUS RHYTHM RIGHT AXIS DEVIATION EARLY PRECORDIAL R/S TRANSITION BORDERLINE T WAVE ABNORMALITY- HIGH LATERAL LEADS BORDERLINE ECG COMPARED TO ECG 03/19/2022 22:18:22 NO SIGNIFICANT CHANGES Electronically Signed On 03-20-2022 22:04:15 ARCH CUSHION SKIVING MACHINE OPERATOR by Jonatan Parra D.O.
[2022-03-20] MEDS: NITROGLYCERIN SL 0.4 MG TABLET SUBLINGUAL (21:42)
[2022-03-21] VITALS (12 sets, daily range): BP systolic 113–156; BP diastolic 77–95; PULSE 69–99; RESP 16–22; TEMP 35.7–36.4; O2SAT 95–99
--- NOTE | 2022-03-21 | EST_ITS ---
Patient Info Name: Karly Marques Age: 66 years : 1955 Gender: Female Ht: 61 in Wt: 291 lbs BSA: 2.48 m2 HR: 81 bpm BP: 190 / 100 mmHg Heart Rhythm: Sinus Rhythm Exam Date: 03/21/2022 10:58 AM Exam Location: [facility] Stress Patient Status: Inpatient Admit Date: 03/19/2022 Staff Ordering Physician: Sonali Snell NP Attending Provider: Saima Coombs MD Exercise Technologist: Breanna Langley CT Nurse: roman linder Exam Type: CA stress herb w NM Study Info Indications R07.9 - Chest pain, unspecified A regadenoson stress test was performed. Summary 1. Please correlate with nuclear medicine images, reported separately. 2. No abnormal ST-T wave changes with lexiscan. Protocol: Lexiscan Stress ECG Details Stage: REST Duration (min): 4 min : 14 sec HR (bpm): 83 SBP (mmHg): 189 DBP (mmHg): 93 Stage: REST Duration (min): 11 min : 35 sec HR (bpm): 91 SBP (mmHg): 190 DBP (mmHg): 100 Stage: STAGE 1 Duration (min): 0 min : 59 sec HR (bpm): 98 SBP (mmHg): 190 DBP (mmHg): 100 Stage: RECOVERY Duration (min): 1 min : 0 sec HR (bpm): 95 SBP (mmHg): 190 DBP (mmHg): 100 Stage: RECOVERY Duration (min): 2 min : 0 sec HR (bpm): 95 SBP (mmHg): 184 DBP (mmHg): 101 Stage: RECOVERY Duration (min): 3 min : 0 sec HR (bpm): 89 SBP (mmHg): 184 DBP (mmHg): 101 Stage: RECOVERY Duration (min): 4 min : 0 sec HR (bpm): 89 SBP (mmHg): 212 DBP (mmHg): 100 Stage: RECOVERY Duration (min): 5 min : 0 sec HR (bpm): 82 SBP (mmHg): 212 DBP (mmHg): 100 Stage: RECOVERY Duration (min): 6 min : 0 sec HR (bpm): 89 SBP (mmHg): 212 DBP (mmHg): 100 Stage: RECOVERY Duration (min): 7 min : 0 sec HR (bpm): 89 SBP (mmHg): 212 DBP (mmHg): 100 Stage: RECOVERY Duration (min): 8 min : 0 sec HR (bpm): 97 SBP (mmHg): 201 DBP (mmHg): 100 Stage: RECOVERY Duration (min): 9 min : 0 sec HR (bpm): 98 SBP (mmHg): 168 DBP (mmHg): 96 Stage: RECOVERY Duration (min): 9 min : 17 sec HR (bpm): 99 SBP (mmHg): 168 DBP (mmHg): 96 Rest HR: 91 bpm Peak HR: 102 bpm Rest Sys BP: 190 mmHg Peak Sys BP: 212 mmHg Max Pred HR: 155 bpm % Max Pred HR: 66 % Target HR: 132 bpm Max RPP: 21,624 bpm*mmHg Target HR Summary: Hemodynamic response to exercise was normal BP Response: Normal blood pressure response Termination Reason: Completed protocol Cardiac Symptoms: None Total Time: 1 min : 0 sec Rest [place] BP: 100 mmHg Peak [place] BP: 100 mmHg Total Dose: 0.4 mg Resting ECG Normal sinus rhythm - normal ECG. Stress ECG No abnormal ST/T wave changes with Lexiscan. Arrhythmias Occasional PACs. Report Signatures
--- NOTE | 2022-03-21 | ECHO_ITS ---
Patient Info Name: Karly Marques Age: 66 years : 1955 Gender: Female Ht: 61 in Wt: 291 lbs BSA: 2.48 m2 HR: 69 bpm BP: 113 / 95 mmHg Heart Rhythm: Sinus Rhythm Technical Quality: Fair Exam Date: 03/21/2022 8:26 AM Exam Location: [facility] Pulmonary Patient Status: Inpatient Admit Date: 03/19/2022 Staff Ordering Physician: Sonali Snell NP Handling Tech: Jennifer Meek RDCS Attending Provider: Saima Coombs MD Referring Physician: Alis FAULKNER; Exam Type: CA echo dop color flow w con Study Info Indications R07.9 - Chest pain, unspecified Complete two-dimensional, color flow and Doppler transthoracic echocardiogram is performed with contrast to opacify the left ventricle and to improve the deliniation of the left ventricle endocardial borders. Contrast/Agitated Saline Contrast/Ag. Saline: Definity Amount: 3.00 ml Administered By: Jennifer Meek RDCS Existing IV Access: Yes IV Access Condition: patent with no signs of infiltration Summary 1. Left ventricular chamber dimension is mildly enlarged. 2. Left ventricular systolic function is normal, estimated at 60-65%. 3. There is mildly increased left ventricular wall thickness. 4. The left ventricular diastolic function is grade I diastolic dysfunction. 5. Left atrial chamber dimension is mildly enlarged. 6. There is moderate aortic valve sclerosis. 7. The mitral valve annulus is severely calcified. 8. The mitral valve has thickened leaflets. 9. There is mild tricuspid valve regurgitation. Left Ventricle Left ventricular chamber dimension is mildly enlarged. Left ventricular systolic function is normal, estimated at 60-65%. There is mildly increased left ventricular wall thickness. The left ventricular diastolic function is grade I diastolic dysfunction. Right Ventricle Right ventricular chamber dimension is normal. Right ventricular systolic function is normal. Left Atria Left atrial chamber dimension is mildly enlarged. Right Atria Right atrial chamber dimension is normal. Atrial Septum Intact interatrial septum visualized by color flow imaging. Aortic Valve The aortic valve is trileaflet. There is moderate aortic valve sclerosis. There is no aortic valve stenosis. There is trace aortic valve regurgitation. Pulmonic Valve The pulmonic valve is normal. There is no pulmonic valve stenosis. There is trace pulmonic regurgitation. Mitral Valve The mitral valve has thickened leaflets. There is no mitral valve stenosis. There is trace mitral valve regurgitation. The mitral valve annulus is severely calcified. Tricuspid Valve The tricuspid valve leaflets are normal. There is no significant tricuspid valve stenosis. There is mild tricuspid valve regurgitation. No pulmonary hypertension, estimated pulmonary arterial systolic pressure is 26 mmHg. Pericardium/Pleural The pericardium appears normal. There is no pericardial effusion. Inferior Vena Cava Normal inferior vena cava with >50% collapse upon inspiration consistent with normal right atrial pressure, 10 mmHg. Aorta The aortic root size at the sinus of Valsalva is normal. Left Ventricular Outflow Tract Name Value Normal LVOT 2D
[2022-03-21] MEDS: HYDROcodone/acetaminophen (*CRX) 7.5-325 MG TABLET 1 TAB PO ×2 (04:18→13:34)
[2022-03-21 05:11] LABS: Anion Gap 6 mmol/L (8-16); Blood Urea Nitrogen 15 mg/dL (7-17); Calcium 8.8 mg/dL (8.4-10.2); Carbon Dioxide 27 mmol/L (22-30); Chloride 102 mmol/L (98-107); Cholesterol 193 mg/dL (0-200); Estimated CRCL calculation 102 ml/min; Estimated Glomerular Filt Rate > 60; Glucose 216 mg/dL (65-110); HDL Direct 45 mg/dL; Potassium 4.2 mmol/L (3.4-5.0); Sodium 135 mmol/L (137-145); Triglycerides 159 mg/dL (<150)
[2022-03-21 05:22] LABS: LDL Cholesterol Direct 104 mg/dL
[2022-03-21 07:28] LABS: Glucose Point of Care 186 mg/dl (65-105)
[2022-03-21] MEDS: PERFLUTREN LIPID MICROSPHERES 1.5 ML VIAL DILUTED TO 10 ML TOTAL VOLUME IV PUSH (09:02)
--- NOTE | 2022-03-21 09:02 | IVDEFINITY ---
Prior to administration of IV Definity the patient was educated on the risks and benefits of the imaging enhancing agent including potential adverse side effects. The patient verbalized understanding. Allergies were verified. No exclusion criteria were identified and at least one of the following inclusion criteria were met: 1) physician request, 2) patient technically difficult to image (per the [place] [employer]chocardi[employer] guidelines of two or more segments not discernable within the apical view), or 3) questionable left ventricular function. ?
[2022-03-21] MEDS: ASPIRIN 81 MG CHEWABLE TABLET PO (09:23)
[2022-03-21] MEDS: OXYBUTYNIN CHLORIDE 5 MG TABLET PO (09:23)
[2022-03-21] MEDS: INSULIN GLARGINE (*BKC) 100 UNITS/ML 50 UNITS SUB-Q (09:24)
[2022-03-21 12:14] LABS: Glucose Point of Care 142 mg/dl (65-105)
--- NOTE | 2022-03-21 12:32 | PM.PNCARD ---
Progress Note: A&P Assessment and Plan (1) Chest pain: Code(s): R07.9 - Chest pain, unspecified Status: Acute Plan CTA negative for PE. Troponins negative x 3. EKG without ischemic changes. Lexiscan negative for ischemia or infarct. Normal LVSF, EF 60-65%. Grade I diastolic dysfunction. No significant valvular abnormalities. OK for discharge from a cardiac perspective. Subjective Date/time seen: 03/21/22 12:32 Cardiology follow up for chest pain Not having any chest pain today. Breathing has improved. Comfortable and without any complaints at the time of my visit. Review of Systems Review of Systems: All systems reviewed & are unremarkable except as noted in HPI and below Exam Const: General: comfortable and no acute distress Other: Morbidly obese female HENMT: Mouth: Yes moist mucous membranes Eyes: General: appearance normal, both eyes and all related structures Sclera: sclerae normal Neck: Neck: supple Resp: Effort & Inspection: normal respiratory effort Auscultation: clear to auscultation bilaterally Cardio: Rate: regular rate Rhythm: regular rhythm Heart sounds: no murmurs Skin: General skin exam: normal color Neuro: Speech: normal speech Motor exam (neuro): 5/5 motor strength present throughout Extrem: General: normal to inspection Psych: Mental Status: mental status grossly normal Affect: normal affect Objective Data Vital Signs Vital Signs: Vital Signs - 24 hr 03/20/22 16:07 03/20/22 14:00 03/20/22 16:00 Temperature 36.2 C L Pulse Rate 77 85 72 Respiratory Rate 18 Blood Pressure 127/62 Pulse Oximetry 68 L Oxygen Delivery 03/20/22 16:00 03/20/22 18:00 03/20/22 20:00 Temperature 36.2 C L Pulse Rate 86 82 Respiratory Rate 20 Blood Pressure 126/69 Pulse Oximetry 97 Oxygen Delivery Room Air 03/20/22 21:41 03/20/22 21:47 03/20/22 23:36 Temperature 36.6 C Pulse Rate 77 77 71 Respiratory Rate 20 Blood Pressure 147/77 H 129/67 125/62 Pulse Oximetry 97 Oxygen Delivery 03/20/22 20:00 03/20/22 20:00 03/20/22 22:00 Temperature Pulse Rate 79 71 78 Respiratory Rate 20 Blood Pressure Pulse Oximetry 97 Oxygen Delivery Room Air 03/21/22 00:00 03/21/22 00:00 03/21/22 01:45 Temperature Pulse Rate 72 71 75 Respiratory Rate 20 Blood Pressure Pulse Oximetry 97 95 Oxygen Delivery Room Air CPAP 03/21/22 02:00 03/21/22 04:00 03/21/22 04:00 Temperature 36.3 C L Pulse Rate 76 87 74 Respiratory Rate 20 Blood Pressure 113/95 H Pulse Oximetry 98 Oxygen Delivery 03/21/22 04:00 03/21/22 06:00 03/21/22 08:01 Temperature 36.3 C L Pulse Rate 71 69 89 Respiratory Rate 20 22 H Blood Pressure 145/77 H Pulse Oximetry 97 95 Oxygen Delivery Room Air 03/21/22 08:00 03/21/22 08:00 03/21/22 10:00 Temperature Pulse Rate 69 84 Respiratory Rate Blood Pressure Pulse Oximetry Oxygen Delivery Room Air 03/21/22 12:00 03/21/22 12:00 Temperature Pulse Rate 99 Respiratory Rate Blood Pressure Pulse Oximetry Oxygen Delivery Room Air Intake/Output Intake/Output: Intake & Output 03/18/22 03/19/22 03/20/22 03/21/22 23:59 23:59 23:59 23:59 Intake Total 1380 500 Output Total 200 1450 1300 Balance -200 -70 -800 Meds/Results Medications: Active Medications Generic Name Dose Route Start Last Admin Trade Name Freq PRN Reason Stop Dose Admin Hydrocodone Bitart/Acetaminophen 1 tab 03/20/22 01:05 03/21/22 04:18 Hydrocodone/Acetaminophen (*Crx) 7.5-325 Mg Tablet PO 1 tab Q6H PRN Administration Pain Amitriptyline HCl 25 mg 03/20/22 21:00 03/20/22 21:35 Amitriptyline Hcl 25 Mg Tablet PO 25 mg HS RODERICK Administration Aspirin 81 mg 03/20/22 17:35 03/21/22 09:23 Aspirin 81 Mg Chewable Tablet PO 81 mg DAILY@0800 RODERICK Administration Dextrose 12.5 gm 03/20/22 00:50 Dextrose 50% 25 Gm/50 Ml [place]
--- NOTE | 2022-03-21 16:13 | PM.DS ---
DS: Admitting Diagnosis Discharge Date 03/21/22 Admitting Diagnosis Chest pain DS: Discharge Diagnosis Discharge Diagnosis (1) Chest pain: Code(s): R07.9 - Chest pain, unspecified Status: Acute (2) Shortness of breath: Code(s): R06.02 - Shortness of breath Status: Acute (3) Hypothyroid: Code(s): E03.9 - Hypothyroidism, unspecified Status: Acute (4) Thyroid nodule: Code(s): E04.1 - Nontoxic single thyroid nodule Status: Acute (5) Pulmonary embolism: Code(s): I26.99 - Other pulmonary embolism without acute cor pulmonale Status: Acute (6) LUL on CPAP: Code(s): G47.33 - Obstructive sleep apnea (adult) (pediatric); Z99.89 - Dependence on other enabling machines and devices Status: Acute (7) Type II diabetes mellitus: Code(s): E11.9 - Type 2 diabetes mellitus without complications Status: Acute (8) Breast cancer: Code(s): C50.919 - Malignant neoplasm of unspecified site of unspecified female breast Status: Acute DS: Summary Hospital Course Reason for hospitalization: 66yo female with hx of LUL, DM, and PE here for CP and SOB. Please see H&P for details. Hospital Course: Patient presents with complaints of chest pain shortness of breath. She has no history of coronary disease. Troponins were negative x3. Cardiology was consulted. EKG showed no acute changes. CC with aspirin. She underwent a Lexiscan stress test which showed no ST-T wave changes and no definitive reversible or fixed perfusion abnormalities to suggest ischemia or infarction. No segmental wall motion abnormalities. EF was 69%. Echocardiogram showed EF of 60-65% with grade 1 diastolic dysfunction and minimal valvular disease. No pulmonary hypertension. CTA of the chest showed no evidence pulmonary emboli. No acute cardiopulmonary disease. She did have a thyroid nodule noted. Thyroid ultrasound showed multinodular goiter. There was a 2.8 cm solid nodule the right lobe and FNA was recommended. TSH mildly elevated but FT4 normal. She was encouraged to follow-up with her doctor to discuss further testing for her shortness of breath. She will also speak with her physician about obtaining thyroid FNA. She overall did well and was able to be discharged home on 03/21/2022 Status at Discharge Cognitive/behavioral status at discharge: stable Time Spent with Patient Time attestation: Total time spent providing and/or coordinating discharge services: 35 minutes Time spent: Greater than 30 minutes Exam Narrative: AF 96.2 156/89 77 20 99% ra Gen - NARD Chest - CTA bilaterally, nml RR CV - RRR S1/S2. Telemetry showing no significant dysrhythmia Abd - Soft, obese, NT, +BS Ext - Non pitting edema Psych - Nml mood and affect Skin - Warm and dry DS: Data Data Completed and Pending Labs on day of discharge: Labs from last 24 hours 03/21/22 03/21/22 03/21/22 12:09 07:08 04:43 Sodium 135 L Potassium 4.2 Chloride 102 Carbon Dioxide 27 Anion Gap 6 L BUN 15 Creatinine 0.60 L Estim Creat Clear Calc 102 Estimated GFR > 60 Glucose 216 H POC Capillary Glucose 142 H 186 H Calcium 8.8 Triglycerides 159 H Cholesterol 193 LDL Cholesterol Direct 104 HDL Direct 45 03/20/22 03/20/22 21:10 16:11 Sodium Potassium Chloride Carbon Dioxide Anion Gap BUN Creatinine Estim Creat Clear Calc Estimated GFR Glucose POC Capillary Glucose 189 H 224 H Calcium Triglycerides Cholesterol LDL Cholesterol Direct HDL Direct Discharge Plan Discharge Attending physician on discharge: Dajuan Mcgrath Consulting providers: Melvin Barnes Discharging Clinician: Dajuan Mcgrath Anticipated Discharge Date/Time: 03/21/22 16:22 Patient Disposition: Home, Self-Care Activity: as tolerated Diet: diabetic Discharge Instructions:
[2022-03-21] MEDS: RIVAROXABAN 20 MG TABLET PO (16:52)
[2022-03-21 16:53] LABS: Glucose Point of Care 247 mg/dl (65-105)
[2022-03-21] MEDS: INSULIN ASPART (*BKC) 100 UNITS/ML SUB-Q (16:53)
== END 2022-03-21 17:28 | disposition home or self-care (01) ==
LOC: ANHED 22:12 → ANHIMU 23:01
PROVIDERS: Nurse Practitioner; Physician Assistant; Admitting Provider Internal Medicine; Emergency Provider Emergency Medicine; PCP Internal Medicine; Visit Provider Internal Medicine
DX: R07.9 Chest pain, unspecified (principal); R06.02 Shortness of breath; I50.9 Heart failure, unspecified; M54.89 Other dorsalgia; G89.29 Other chronic pain; F41.9 Anxiety disorder, unspecified; R53.83 Other fatigue; Z20.822 Contact with and (suspected) exposure to COVID-19; F32.A Depression, unspecified; E11.42 Type 2 diabetes mellitus with diabetic polyneuropathy; E03.9 Hypothyroidism, unspecified; K58.9 Irritable bowel syndrome, unspecified; I70.0 Atherosclerosis of aorta; E66.01 Morbid (severe) obesity due to excess calories; Z68.43 Body mass index [BMI] 50.0-59.9, adult; D72.829 Elevated white blood cell count, unspecified; E04.2 Nontoxic multinodular goiter; G47.33 Obstructive sleep apnea (adult) (pediatric); Z99.89 Dependence on other enabling machines and devices; G25.81 Restless legs syndrome; I27.21 Secondary pulmonary arterial hypertension; I25.10 Atherosclerotic heart disease of native coronary artery without angina pectoris; I07.1 Rheumatic tricuspid insufficiency; Z90.13 Acquired absence of bilateral breasts and nipples; Z85.3 Personal history of malignant neoplasm of breast; Z86.16 Personal history of COVID-19; Z87.442 Personal history of urinary calculi; Z86.718 Personal history of other venous thrombosis and embolism; Z87.891 Personal history of nicotine dependence; Z87.440 Personal history of urinary (tract) infections; Z79.4 Long term (current) use of insulin; Z79.01 Long term (current) use of anticoagulants; Z79.891 Long term (current) use of opiate analgesic; Z79.899 Other long term (current) drug therapy; Z82.49 Family history of ischemic heart disease and other diseases of the circulatory system; Z83.3 Family history of diabetes mellitus
CPT/HCPCS: 36415; 51701; 71046; 71275; 76536; 78452; 80048; 80053; 80061; 81001; 82948; 83036; 83605; 83690; 83735; 83880; 84439; 84443; 84480; 84484; 85025; 85610; 85730; 87636; 93005; 93017; 96374; 99285; A9270; A9502; C8929; G0378; J1815; J2785; Q9957; Q9967

== ENCOUNTER 2022-03-25 10:41 | Emergency (ER) | payer MEDICARE, MEDICAID, SELFPAY ==
--- NOTE | ~2022-03-25 | XR_ITS ---
EXAMINATION: XR chest 2V DATE: 03/25/2022 11:48 INDICATION: Shortness of breath. Chest pain. TECHNIQUE: Frontal and lateral views of the chest were obtained. COMPARISON: Chest 2 views 03/19/2022, chest CT 03/19/2022 FINDINGS: There are mild airspace opacities in left midlung zone. No pleural effusion or pneumothorax . The heart size is normal. Epidural electrodes are noted in thoracic spine. IMPRESSION: 1. Mild airspace opacities in left midlung zone, consistent with atelectasis versus pneumonia. Reviewed, dictated and finalized at location [facility] IMPRESSION: 1. Mild airspace opacities in left midlung zone, consistent with atelectasis ve rsus pneumonia.
[2022-03-25 10:53] VITALS: BP 153/105; PULSE 98; RESP 19; TEMP 36.3; O2SAT 100
--- NOTE | 2022-03-25 11:06 | ECG_ITS ---
Measurements Intervals [place] Rate: 102 P: 4 WA: 146 QRS: 1 QRSD: 81 T: 21 QT: 345 QTc: 449 Interpretive Statements SINUS TACHYCARDIA NONSPECIFIC T-WAVE ABNORMALITY ABNORMAL RHYTHM ECG COMPARED TO ECG 03/20/2022 21:44:02 SINUS TACHYCARDIA NOW PRESENT T-WAVE ABNORMALITY NOW PRESENT Electronically Signed On 03-25-2022 11:47:03 NEUROLOGY SPECIALIST by Ricky Laboy M.D.
[2022-03-25 11:18] VITALS: PULSE 93; O2SAT 98
[2022-03-25 11:22] LABS: Basophils Percent Auto 0.4 % (0.2-1.2); Eosinophils Absolute Auto 0.3 K/mm3 (0-0.3); Eosinophils Percent Auto 2.7 % (0-4.4); Hematocrit 40.7 % (37.0-47.0); Immature Granulocyte Absolute 0.05 K/mm3 (0.00-0.031); Immature Granulocyte Percent A 0.5 % (0-0.5); Lymphocytes Absolute Auto 2.12 K/mm3 (0.9-3.2); Lymphocytes Percent Auto 21.6 % (18.3-44.2); Mean Corpuscular HGB Conc 31.9 g/dl (32-36); Mean Corpuscular Hemoglobin 29.2 pg (26-34); Mean Corpuscular Volume 91.5 fl (80-100); Mean Platelet Volume 9.2 fl (7.4-10.4); Monocytes Absolute Auto 0.7 K/mm3 (0.1-0.6); Monocytes Percent Auto 6.8 % (2.6-8.5); Neutrophils Absolute Auto 6.7 K/mm3 (1.3-6.7); Platelet Count Result 289 k/mm3 (150-375); Red Blood Count 4.45 M/mm3 (4.2-5.4); White Blood Count 9.8 K/mm3 (4.5-10.0)
[2022-03-25 11:33] LABS: INR 1.7; Partial Thromboplastin Time 34.7 SECONDS (22.3-36.8); Prothrombin Time 19.6 Seconds (11.1-14.7)
[2022-03-25 11:37] LABS: Alanine Aminotransferase 26 U/L (6-35); Albumin Level 4.3 g/dL (3.5-5.1); Alkaline Phosphatase 102 U/L (38-126); Anion Gap 9 mmol/L (8-16); Aspartate Amino Transferase 27 U/L (14-36); Bilirubin,Total 0.9 mg/dL (0.2-1.3); Blood Urea Nitrogen 14 mg/dL (7-17); Calcium 9.1 mg/dL (8.4-10.2); Carbon Dioxide 27 mmol/L (22-30); Chloride 97 mmol/L (98-107); Estimated CRCL calculation 101 ml/min; Estimated Glomerular Filt Rate > 60; Glucose 260 mg/dL (65-110); Lipase 52 U/L (23-300); Potassium 3.8 mmol/L (3.4-5.0); Sodium 133 mmol/L (137-145)
[2022-03-25 11:47] LABS: Troponin I < 0.012 ng/mL (0.000-0.034)
--- NOTE | 2022-03-25 11:51 | ED.SOB ---
HPI - SOB/Dyspnea General Chief Complaint: Shortness of Breath/Dyspnea Stated Complaint: SOB, concerned for pneumonia Time Seen by Provider: 03/25/22 11:46 Source: patient and RN notes reviewed Limitations: no limitations History of Present Illness HPI Narrative: 66 years old white female came from home with a chief complaint of shortness of breath. Patient was admitted to our hospital 1 week ago for the same symptoms, extensive work-up showed no acute abnormalities and patient was discharged at that time. Patient lives with her daughter, stating me that she did not feel shortness of breath fatigue and tiredness. She believes that her shortness of breath is worse than before. Also been having raspy voice for the last 3 days. Also telling me that she have thyroid mass, had biopsy, waiting for the result, patient believes that she cannot take deep breath like she breathing against the wall. She denies any fever, chills, chest pain or back pain. Also denied any history of anxiety or depression. Patient was referred to be seen by master deputy sheriff court security patient tested positive for COVID on January 13, 2022 Related Data Home Medications Medication Instructions Recorded Confirmed amitriptyline 25 mg tablet 25 mg PO HS 01/06/20 03/20/22 exemestane 25 mg tablet 25 mg PO HS 01/06/20 03/20/22 insulin glargine 100 unit/mL (3 50 unit subcut QAM 01/06/20 03/19/22 mL) subcutaneous pen (Lantus Solostar U-100 Insulin) pen needle, diabetic 31 gauge x 01/06/20 03/19/22 5/16 (BD Ultra-Fine Short Pen Needle) rivaroxaban 20 mg tablet (Xarelto) 20 mg PO DAILY 01/06/20 03/19/22 ropinirole 5 mg tablet 5 mg PO HS 01/06/20 03/19/22 oxybutynin chloride 5 mg tablet 5 mg PO DAILY 03/13/22 03/19/22 hydrocodone 7.5 mg-acetaminophen 1 tablet PO Q6H PRN Pain 03/19/22 03/19/22 325 mg tablet insulin lispro 100 unit/mL 22 unit subcut TID 03/19/22 03/19/22 subcutaneous pen (Humalog KwikPen (U-100) Insulin) ondansetron HCl 4 mg tablet 4 mg PO Q6H PRN Nausea 03/19/22 03/19/22 Allergies Allergy/AdvReac Type Severity Reaction Status Date / Time ceftriaxone Allergy Severe SOB Verified 03/25/22 10:55 cephalexin Allergy Severe Difficulty Verified 03/25/22 10:55 Breathing Cephalosporins Allergy Severe Difficulty Verified 03/25/22 10:55 Breathing lorazepam Allergy Severe Swelling Verified 03/25/22 10:55 metoclopramide Allergy Intermediate Other Verified 03/25/22 10:55 chlorhexidine Allergy Mild BLISTERING Verified 03/25/22 10:55 levofloxacin Allergy Mild Hives / Verified 03/25/22 10:55 Red Face trazodone Allergy Swelling Verified 03/25/22 10:55 of Lip/Tongue/Throat oxycodone AdvReac Mild Vomiting Verified 03/25/22 10:55 Review of Systems Review of Systems: All systems reviewed & are unremarkable except as noted in HPI and below PMFSH Past Medical History Medical History Anxiety Breast cancer CHF (congestive heart failure) Chronic back pain Collagenous colitis COVID-19 Depression DM type 2 (diabetes mellitus, type 2) DVT (deep venous thrombosis) Hypothyroid IBS (irritable bowel syndrome) Kidney stone Morbid obesity Multiple thyroid nodules LUL on CPAP Peripheral neuropathy Pulmonary embolism positive for coagulation workup RLS (restless legs syndrome) 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) Surgical History Surgical History H/O hernia repair H/O mastectomy bilateral History of cardiac catheterization no CAD noted History of esophagogastroduodenoscopy (EGD) History of right oophorectomy History of total right knee replacement Hx of cholecystectomy Hx of colonoscopy S/P insertion of spinal cord stimulator S/P ureteral stent placement Family History Family History Mother Diabetes mellitus Acute myocardial infarction Cerebrovascular accident Hypertension
[2022-03-25 12:48] LABS: Influenza A QL RT-PCR Negative (Negative); Influenza B QL RT-PCR Negative (Negative); RSV RNA, RT-PCR Negative (Negative); SARS-CoV-2 RNA PCR Negative
[2022-03-25 13:21] LABS: Alveolar/Arterial O2 Gradient 17.6 mmHg; Base Excess ABG 3.8 mEq/l (+/-2.0); Device ROOM AIR; Fractional Inspired Oxygen 21 %; HCO3 ABG 28.1 mEq/l (22.0-26.0); Modified Allen's Test Pass; Oxygen Content ABG 18.1 %vol (16.0-22.0); Oxygen Saturation ABG 96.5 % (95.0-100.0); Oxyhemoglobin 95.3 % THb (90.0-100.0); PCO2 ABG 41.6 mmHg (35.0-45.0); PO2 ABG 82.3 mmHg (80.0-100.0); PO2 FiO2 Ratio Arterial Blood 3.92 %; Site Drawn RIGHT RADIAL; Total Hemoglobin 13.5 g/dL (12.0-18.0); pH ABG 7.448 (7.350-7.450)
[2022-03-25 13:24] VITALS: BP 162/89; PULSE 99; RESP 20; O2SAT 97
[2022-03-25 13:50] VITALS: PULSE 90; RESP 22; O2SAT 99
[2022-03-25 14:00] VITALS: PULSE 95; RESP 20; O2SAT 95
[2022-03-25 14:34] VITALS: BP 164/77; PULSE 95; RESP 18; O2SAT 98
== END 2022-03-25 14:45 | disposition home or self-care (01) ==
PROVIDERS: Emergency Provider Emergency Medicine; PCP Internal Medicine
DX: U09.9 Post COVID-19 condition, unspecified (principal); R06.00 Dyspnea, unspecified; R53.83 Other fatigue; Z20.822 Contact with and (suspected) exposure to COVID-19; E11.42 Type 2 diabetes mellitus with diabetic polyneuropathy; I50.9 Heart failure, unspecified; E03.9 Hypothyroidism, unspecified; K58.9 Irritable bowel syndrome, unspecified; G47.33 Obstructive sleep apnea (adult) (pediatric); G25.81 Restless legs syndrome; E66.01 Morbid (severe) obesity due to excess calories; Z68.43 Body mass index [BMI] 50.0-59.9, adult; F41.9 Anxiety disorder, unspecified; Z90.13 Acquired absence of bilateral breasts and nipples; Z90.721 Acquired absence of ovaries, unilateral; Z96.651 Presence of right artificial knee joint; Z96.82 Presence of neurostimulator; Z85.3 Personal history of malignant neoplasm of breast; Z86.718 Personal history of other venous thrombosis and embolism; Z86.711 Personal history of pulmonary embolism; Z87.440 Personal history of urinary (tract) infections; Z87.42 Personal history of other diseases of the female genital tract; Z87.891 Personal history of nicotine dependence; Z79.4 Long term (current) use of insulin; Z79.01 Long term (current) use of anticoagulants; R91.8 Other nonspecific abnormal finding of lung field
CPT/HCPCS: 36415; 36600; 71046; 80053; 82805; 83690; 84484; 85025; 85610; 85730; 87040; 87637; 93005; 99284

== ENCOUNTER 2022-04-04 17:27 | Emergency (ER) | payer MEDICARE, MEDICAID, SELFPAY ==
[2022-04-04 17:47] VITALS: BP 152/100; PULSE 107; RESP 20; TEMP 36.4; O2SAT 100
[2022-04-04 18:53] LABS: Appearance Urine Cloudy (Clear); Bilirubin Urine 1+ (Negative); Blood Urine 3+ (Negative); Color Urine Yellow (Yellow); Glucose Urine UA Negative (Negative); Ketones Urine Negative (Negative); Leukocyte Esterase Ur 3+ LEU/UL (Negative); Nitrate Urine Positive (Negative); Protein Urine 3+ mg/dL (Negative); pH Urine 5.5 (5.0-9.0)
[2022-04-04 18:58] LABS: Bacteria Urine Trace /hpf; RBC Urine >75 /hpf (0-2); WBC Urine >75 /hpf
[2022-04-04 19:18] LABS: Add Urine Microscopic? YES
--- NOTE | 2022-04-04 21:30 | PC.NURSE ---
Patient called for registration without answer.
--- NOTE | 2022-04-04 22:15 | PC.NURSE ---
patient called x2 from waiting room without answer.
== END 2022-04-04 22:16 | disposition left against medical advice (07) ==
PROVIDERS: Emergency Provider Emergency Medicine; PCP Internal Medicine
DX: R31.9 Hematuria, unspecified (principal)
CPT/HCPCS: 81001; 87077; 87086; 87186; 99199

== ENCOUNTER 2022-04-19 14:09 | Emergency (ER) | payer MEDICARE, MEDICAID, SELFPAY ==
[2022-04-19 14:16] VITALS: BP 141/70; PULSE 96; RESP 16; TEMP 36.2; O2SAT 98
--- NOTE | 2022-04-19 14:48 | ED.URI ---
HPI - URI/Sore Throat General Chief Complaint: Dental/Oral Stated Complaint: Sore Throat,Mouth Sores,Tongue Swelling Time Seen by Provider: 04/19/22 14:48 Source: patient, RN notes reviewed and old records reviewed Mode of arrival: ambulatory Limitations: no limitations History of Present Illness HPI Narrative: 66-year-old presents to the [facility] complaints of sores in her will right cheek area. States it has been there a couple of days, hurts to eat. Describes it is very painful. Currently under testing and going for a biopsy of her thyroid this week. Related Data Home Medications Medication Instructions Recorded Confirmed amitriptyline 25 mg tablet 25 mg PO HS 01/06/20 04/19/22 exemestane 25 mg tablet 25 mg PO HS 01/06/20 04/19/22 insulin glargine 100 unit/mL (3 50 unit subcut QAM 01/06/20 04/19/22 mL) subcutaneous pen (Lantus Solostar U-100 Insulin) pen needle, diabetic 31 gauge x 01/06/20 03/19/22 5/16 (BD Ultra-Fine Short Pen Needle) rivaroxaban 20 mg tablet (Xarelto) 20 mg PO DAILY 01/06/20 04/19/22 ropinirole 5 mg tablet 5 mg PO HS 01/06/20 04/19/22 oxybutynin chloride 5 mg tablet 5 mg PO DAILY 03/13/22 04/19/22 hydrocodone 7.5 mg-acetaminophen 1 tablet PO Q6H PRN Pain 03/19/22 04/19/22 325 mg tablet insulin lispro 100 unit/mL 22 unit subcut TID 03/19/22 04/19/22 subcutaneous pen (Humalog KwikPen (U-100) Insulin) ondansetron HCl 4 mg tablet 4 mg PO Q6H PRN Nausea 03/19/22 04/19/22 Allergies Allergy/AdvReac Type Severity Reaction Status Date / Time ceftriaxone Allergy Severe SOB Verified 04/19/22 15:03 cephalexin Allergy Severe Difficulty Verified 04/19/22 15:03 Breathing Cephalosporins Allergy Severe Difficulty Verified 04/19/22 15:03 Breathing lorazepam Allergy Severe Swelling Verified 04/19/22 15:03 metoclopramide Allergy Intermediate Other Verified 04/19/22 15:03 chlorhexidine Allergy Mild BLISTERING Verified 04/19/22 15:03 levofloxacin Allergy Mild Hives / Verified 04/19/22 15:03 Red Face trazodone Allergy Swelling Verified 04/19/22 15:03 of Lip/Tongue/Throat oxycodone AdvReac Mild Vomiting Verified 04/19/22 15:03 Review of Systems Review of Systems: All systems reviewed & are unremarkable except as noted in HPI and below Constitutional: Constitutional: Reports no additional constitutional complaints Eyes: Eyes: Reports no additional eye complaints ENT: Reports as per HPI Cardiovascular: Cardiovascular: Reports no additional cardiovascular complaints, Denies chest pain and Denies dyspnea Respiratory: Respiratory: Reports no additional respiratory complaints, Denies chest congestion, Denies cough and Denies dyspnea Gastrointestinal: Gastrointestinal: Reports no additional gastrointestinal complaints, Denies abdominal pain, Denies nausea and Denies vomiting Musculoskeletal: Musculoskeletal: Reports no additional musculoskeletal complaints Integumentary/Breasts: Skin/Breast: Reports system reviewed and no additional complaints, except as docu Neurologic: Reports system reviewed and no additional complaints, except as documented Psychiatric: Psychiatric: Reports no additional psychiatric complaints Allergic/Immunologic: Allergic/Immunologic: Reports no additional allergic/immunologic complaints PMFSH Past Medical History Medical History Anxiety Breast cancer CHF (congestive heart failure) Chronic back pain Collagenous colitis COVID-19 Depression DM type 2 (diabetes mellitus, type 2) DVT (deep venous thrombosis) Hypothyroid IBS (irritable bowel syndrome) Kidney stone Morbid obesity Multiple thyroid nodules LUL on CPAP Peripheral neuropathy Pulmonary embolism positive for coagulation workup RLS (restless legs syndrome) 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) Surgical History Surgical History H/O hernia repair H/O mastectomy bilateral
== END 2022-04-19 15:40 | disposition home or self-care (01) ==
PROVIDERS: Emergency Provider Nurse Practitioner; PCP Internal Medicine
DX: K12.0 Recurrent oral aphthae (principal); Z87.891 Personal history of nicotine dependence; E03.9 Hypothyroidism, unspecified; E66.01 Morbid (severe) obesity due to excess calories; Z68.43 Body mass index [BMI] 50.0-59.9, adult; G47.33 Obstructive sleep apnea (adult) (pediatric); Z86.711 Personal history of pulmonary embolism; G25.81 Restless legs syndrome; E11.42 Type 2 diabetes mellitus with diabetic polyneuropathy; Z86.718 Personal history of other venous thrombosis and embolism; Z86.16 Personal history of COVID-19; Z85.3 Personal history of malignant neoplasm of breast; Z90.13 Acquired absence of bilateral breasts and nipples; Z96.651 Presence of right artificial knee joint; Z96.82 Presence of neurostimulator; I50.9 Heart failure, unspecified; F32.9 Major depressive disorder, single episode, unspecified; Z79.4 Long term (current) use of insulin; Z79.01 Long term (current) use of anticoagulants
CPT/HCPCS: 99213; G0463

== ENCOUNTER 2022-04-25 00:10 | Emergency (ER) | payer MEDICARE, MEDICAID, SELFPAY ==
[2022-04-25 00:42] VITALS: BP 145/98; PULSE 96; RESP 22; O2SAT 99
--- NOTE | 2022-04-25 04:08 | PC.NURSE ---
called for patient patient is no longer in waiting room
== END 2022-04-25 04:00 | disposition left against medical advice (07) ==
PROVIDERS: PCP Internal Medicine
DX: Z53.21 Procedure and treatment not carried out due to patient leaving prior to being seen by health care provider (principal)
CPT/HCPCS: 99199

== ENCOUNTER 2022-07-05 19:03 | Emergency (ER) | payer MEDICARE, MEDICAID, SELFPAY | END 2022-07-05 19:25 | disposition left against medical advice (07) | PROVIDERS: Emergency Provider Nurse Practitioner Family; PCP Internal Medicine | DX: Z53.21 Procedure and treatment not carried out due to patient leaving prior to being seen by health care provider (principal) | CPT/HCPCS: 99199 ==

== ENCOUNTER 2022-07-19 13:17 | Observation (INO) | payer MEDICARE, MEDICAID, SELFPAY ==
[2022-07-19] VITALS (9 sets, daily range): BP systolic 122–183; BP diastolic 62–97; PULSE 81–93; RESP 14–20; TEMP 36.4–36.9; O2SAT 93–100; BMI 54.9
[2022-07-19 14:03] LABS: Appearance Urine Cloudy (Clear); Bacteria Urine Rare /hpf; Bilirubin Urine Negative (Negative); Blood Urine Trace (Negative); Color Urine Yellow (Yellow); Glucose Urine UA Negative (Negative); Ketones Urine Negative (Negative); Leukocyte Esterase Ur 3+ LEU/UL (Negative); Nitrate Urine Negative (Negative); Non Pathogenic Casts 0-2; Protein Urine Negative (Negative); RBC Urine 0-2 /hpf (0-2); Specific Grav Ur 1.007 (1.001-1.035); Squamous Epithelial Cell Urine None seen /hpf (Few); Urobilinogen Urine 0.2 mg/dL (<2.0); WBC Urine >100 /hpf; pH Urine 6.5 (5.0-9.0)
[2022-07-19 14:46] LABS: Add Urine Microscopic? YES
--- NOTE | 2022-07-19 16:49 | ED.GENADULT ---
HPI - General Adult General Chief complaint: Urogenital-Female Stated complaint: I think Im dehydrated, freq urination Time Seen by Provider: 07/19/22 15:49 History of Present Illness HPI narrative: 67-year-old female with history of frequent urinary tract infections, type 2 diabetes presenting to the emergency department for evaluation of increased thirst and urinary symptoms. Patient states he has multiple underlying medication allergies and does have frequent urinary tract infections. Patient states she does have follow-up with [facility]. Patient reports she did have a recent scope and Pap smear. Patient is also on fosfomycin approximately 3 weeks ago for a urinary tract infection. Patient reports that her urologist is previously treated her with 3 days of fosfomycin but 3 weeks ago her primary care physician only treated her with 1 day of fosfomycin. Patient states that she began having increased urinary frequency a few days ago. Related Data Home Medications Medication Instructions Recorded Confirmed amitriptyline 25 mg tablet 25 mg PO HS 01/06/20 07/19/22 exemestane 25 mg tablet 25 mg PO HS 01/06/20 07/19/22 insulin glargine 100 unit/mL (3 50 unit subcut QAM 01/06/20 07/19/22 mL) subcutaneous pen (Lantus Solostar U-100 Insulin) rivaroxaban 20 mg tablet (Xarelto) 20 mg PO DAILY 01/06/20 07/19/22 ropinirole 5 mg tablet 5 mg PO HS 01/06/20 07/19/22 oxybutynin chloride 5 mg tablet 10 mg PO BID 03/13/22 07/19/22 hydrocodone 7.5 mg-acetaminophen 1 tablet PO Q6H PRN Pain 03/19/22 07/19/22 325 mg tablet insulin lispro 100 unit/mL 22 unit subcut TID 03/19/22 07/19/22 subcutaneous pen (Humalog KwikPen (U-100) Insulin) hydrochlorothiazide 12.5 mg capsule 12.5 mg PO DAILY 07/19/22 07/19/22 methenamine hippurate 1 gram tablet 1 g PO BID 07/19/22 07/19/22 Allergies Allergy/AdvReac Type Severity Reaction Status Date / Time ceftriaxone Allergy Severe SOB Verified 07/19/22 16:07 cephalexin Allergy Severe Difficulty Verified 07/19/22 16:07 Breathing Cephalosporins Allergy Severe Difficulty Verified 07/19/22 16:07 Breathing lorazepam Allergy Severe Swelling Verified 07/19/22 16:07 metoclopramide Allergy Intermediate Other Verified 07/19/22 16:07 chlorhexidine Allergy Mild BLISTERING Verified 07/19/22 16:07 levofloxacin Allergy Mild Hives / Verified 07/19/22 16:07 Red Face ketorolac Allergy Itching Verified 07/19/22 18:39 latex Allergy Rash Verified 07/19/22 18:39 nitrofurantoin Allergy Itching Verified 07/19/22 18:39 sulfamethoxazole Allergy Itching Verified 07/19/22 18:39 [From Sulfamethoxazole-Trimethoprim] trazodone Allergy Swelling Verified 07/19/22 16:07 of Lip/Tongue/Throat trimethoprim Allergy Itching Verified 07/19/22 18:39 [From Sulfamethoxazole-Trimethoprim] oxycodone AdvReac Mild Vomiting Verified 07/19/22 16:07 amlodipine AdvReac Swelling Verified 07/19/22 18:39 lisinopril AdvReac Swelling Verified 07/19/22 18:39 meropenem AdvReac Rash Verified 07/19/22 18:39 pregabalin AdvReac Swelling Verified 07/19/22 18:39 reslizumab AdvReac Unknown Verified 07/19/22 18:39 Review of Systems Review of Systems: All systems reviewed & are unremarkable except as noted in HPI and below PMFSH Past Medical History Medical History Anxiety Breast cancer CHF (congestive heart failure) Chronic back pain Collagenous colitis COVID-19 Depression DM type 2 (diabetes mellitus, type 2) DVT (deep venous thrombosis) Hypothyroid IBS (irritable bowel syndrome) Kidney stone Morbid obesity Multiple thyroid nodules LUL on CPAP Peripheral neuropathy Pulmonary embolism positive for coagulation workup RLS (restless legs syndrome) 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) Surgical History Surgical History H/O hernia repair H/O mastectomy bilateral History of cardiac catheteriza
[2022-07-19 17:12] LABS: Basophils Absolute Auto 0.1 K/mm3 (0.0-0.1); Basophils Percent Auto 0.5 % (0.2-1.2); Eosinophils Absolute Auto 0.3 K/mm3 (0-0.3); Eosinophils Percent Auto 2.9 % (0-4.4); Hematocrit 41.6 % (37.0-47.0); Hemoglobin 12.7 g/dL (12.0-15.0); Immature Granulocyte Absolute 0.05 K/mm3 (0.00-0.031); Immature Granulocyte Percent A 0.4 % (0-0.5); Lymphocytes Absolute Auto 2.96 K/mm3 (0.9-3.2); Lymphocytes Percent Auto 25.8 % (18.3-44.2); Mean Corpuscular HGB Conc 30.5 g/dl (32-36); Mean Corpuscular Hemoglobin 28.7 pg (26-34); Mean Corpuscular Volume 93.9 fl (80-100); Mean Platelet Volume 9.6 fl (7.4-10.4); Monocytes Absolute Auto 0.9 K/mm3 (0.1-0.6); Neutrophils Absolute Auto 7.2 K/mm3 (1.3-6.7); Neutrophils Percent Auto 62.4 % (45.5-73.1); Platelet Count Result 290 k/mm3 (150-375); Red Blood Count 4.43 M/mm3 (4.2-5.4); Red Cell Distribution Width 14.3 % (11.5-14.5); White Blood Count 11.5 K/mm3 (4.5-10.0)
[2022-07-19 17:22] LABS: Alanine Aminotransferase 28 U/L (6-35); Albumin Level 4.3 g/dL (3.5-5.1); Alkaline Phosphatase 91 U/L (38-126); Anion Gap 5 mmol/L (8-16); Aspartate Amino Transferase 26 U/L (14-36); Bilirubin,Total 0.7 mg/dL (0.2-1.3); Blood Urea Nitrogen 16 mg/dL (7-17); Calcium 9.3 mg/dL (8.4-10.2); Carbon Dioxide 30 mmol/L (22-30); Chloride 102 mmol/L (98-107); Estimated CRCL calculation 86 ml/min; Estimated Glomerular Filt Rate > 60; Glucose 97 mg/dL (65-110); Potassium 3.8 mmol/L (3.4-5.0); Sodium 137 mmol/L (137-145)
[2022-07-19] MEDS: ONDANSETRON INJ 4 MG/2 ML VIAL IV PUSH (17:54)
[2022-07-19] MEDS: MORPHINE SULFATE (*CRX) 2 MG/ML INJ IV PUSH (17:55)
[2022-07-19] MEDS: SODIUM CHLORIDE 0.9% IV 1,000 ML 500 ML IV CONT (18:03)
--- NOTE | 2022-07-19 19:56 | ADMGEN ---
This patient, Karly Marques, was admitted to Medical Room 345-01. Patient/family oriented to hospital policies and general routines including ID bracelet, bed and alarms, visiting hours, pain management, procedures, bathroom and other care routines, personal items, smoking policy, room service/diet, and visiting hours. Information on how to activate the Rapid Response Team has been discussed. Patient/Family are encouraged to report perceived risks to care and to ask questions if they do not understand what they are told or what they should do.
[2022-07-19 23:41] LABS: Glucose Point of Care 121 mg/dl (65-105)
[2022-07-20] VITALS (7 sets, daily range): BP systolic 140–149; BP diastolic 76–85; PULSE 71–92; RESP 16–20; TEMP 36.6–36.8; O2SAT 94–99
--- NOTE | 2022-07-20 00:35 | PM.IMHP ---
H&P: HPI History of Present Illness Date/Time: 07/20/22 00:35 Chief Complaint: Weakness and urinary frequency with burning Narrative: Patient is a 67-year-old female with past medical history of diabetes, breast cancer, history of PE on Xarelto, frequent UTIs with multiple drug allergies coming in to the ER because she thought she was dehydrated. She said she has been feeling that her throat is dry and she thought she was dehydrated. She says she has been having frequent urination associated with some burning. She had 2 episodes of vomiting yesterday, nonbloody. She said she has frequent UTIs and has had difficulty with taking oral antibiotics as she has multiple drug allergies. She said she actually went to [facility] about a month ago and so a urologist there. She had a cystoscopy done which supposedly showed irritation of her bladder wall with minimal bleeding. Recommendation at that time was to take some methenamine which will alter her urine pH and hopefully prevent infection. She said this worked for a little bit however about a week ago she started having some frequency with dysuria again and so she was given some fosfomycin by her primary care doctor. This has not helped her as she is still having some symptoms and so she went to the emergency room. She denies any fever or diarrhea. Review of Systems Review of Systems: no fever or weight loss no vision changes, no eye discharge no throat pain, no hoarseness, no lymphadenopathy no chest pain, no palpitations no coughing, no wheezing no abdominal pain, no diarrhea, no nausea, had episodes of vomiting yesterday Positive dysuria, no vaginal discharge no leg swelling, no edema no suicidal or homicidal ideation PMFSH Past Medical History Medical History Anxiety Breast cancer CHF (congestive heart failure) Chronic back pain Collagenous colitis COVID-19 Depression DM type 2 (diabetes mellitus, type 2) DVT (deep venous thrombosis) Hypothyroid IBS (irritable bowel syndrome) Kidney stone Morbid obesity Multiple thyroid nodules LUL on CPAP Peripheral neuropathy Pulmonary embolism positive for coagulation workup RLS (restless legs syndrome) 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) Surgical History Surgical History H/O hernia repair H/O mastectomy bilateral History of cardiac catheterization no CAD noted History of esophagogastroduodenoscopy (EGD) History of right oophorectomy History of total right knee replacement Hx of cholecystectomy Hx of colonoscopy S/P insertion of spinal cord stimulator S/P ureteral stent placement Family History Family History Mother Diabetes mellitus Acute myocardial infarction Cerebrovascular accident Hypertension Congestive heart failure Father Prostate carcinoma Sibling Breast cancer Acute myocardial infarction Chronic obstructive pulmonary disease Social History Social History Social History: Patient lives at home with daughter, Yunior, whom she designates as her surrogate MDM. Her PCP is Dr. Gale. She is thus former smoker. She is and disabled Code status Full Code Smoking packs per day: 0 Smoking cigarettes per day: 0.0 Years smoked: 2 Smoking pack-years: 0.00 Smoking status: Former smoker Tobacco type: cigarettes Second hand tobacco smoke exposure: Yes Additional smoking assessment comments: SMOKED FOR 3 YEARS Alcohol intake: never Substance use: never Substance use type: does not use Lack of Transportation: No Lack of Food: Never True Current Housing: I Have Housing Concerned About Future Housing: No Difficulty Paying Gas/Electric Bills: No Difficulty Paying for Meds: No Currently Unemployed: No Education: Associate Degree Difficulty w/ Childcare or Family Care:
[2022-07-20] MEDS: HYDROcodone/acetaminophen (*CRX) 7.5-325 MG TABLET 1 TAB PO ×3 (00:51→20:12)
[2022-07-20] MEDS: rOPINIRole HCL 1 MG TABLET 5 MG PO ×2 (00:52→20:13)
[2022-07-20] MEDS: AMITRIPTYLINE HCL 25 MG TABLET PO ×2 (00:53→20:12)
[2022-07-20] MEDS: oxyBUTYnin CHLORIDE 5 MG TABLET 10 MG PO ×3 (00:53→17:55)
[2022-07-20 01:17] LABS: Hemoglobin A1C 8.6 % (<5.7)
[2022-07-20] MEDS: diphenhydrAMINE HCl INJ 50 MG/ML VIAL 25 MG IV PUSH ×2 (02:03→21:09)
[2022-07-20 08:40] LABS: Glucose Point of Care 131 mg/dl (65-105)
[2022-07-20] MEDS: ONDANSETRON INJ 4 MG/2 ML VIAL IV PUSH ×2 (09:58→22:21)
[2022-07-20] MEDS: WATER FOR IRRIGATION, STERILE 1,000 ML BOTTLE 1000 ML (09:58)
[2022-07-20] MEDS: INSULIN GLARGINE (*BKC) 100 UNITS/ML 50 UNITS SUB-Q (09:58)
[2022-07-20] MEDS: RIVAROXABAN 20 MG TABLET PO (09:59)
[2022-07-20 12:20] LABS: Glucose Point of Care 186 mg/dl (65-105)
[2022-07-20] MEDS: INSULIN ASPART (*BKC) 100 UNITS/ML 22 UNITS SUB-Q (12:40)
--- NOTE | 2022-07-20 12:53 | PM.EVENT ---
Event Note Event Note Event Note: Patient admitted after midnight.? Admitted with recurrent UTI.? Id consulted.? Continue imipenem
[2022-07-20 17:27] LABS: Glucose Point of Care 116 mg/dl (65-105)
--- NOTE | 2022-07-20 18:27 | PC.NURSE ---
Patient is crying in room. Stating she does not want her to come to the hospital and she does not want him in her room. [employer] applied a pink sign on door that reads please see nurses station before entering . [employer] also called security to inform them of the situation. Patient is stating that security is not necessary, but her family will not bring her home medications to the hospital as [facility] does not carry all her medications and we will need to use her home supply.
--- NOTE | 2022-07-20 19:45 | PHAR ---
PT'S HOME MED EXEMESTANE 25 MG TAB VERIFIED BY PHARMACY
[2022-07-20 21:10] LABS: Glucose Point of Care 183 mg/dl (65-105)
[2022-07-21] MEDS: HYDROcodone/acetaminophen (*CRX) 7.5-325 MG TABLET 1 TAB PO ×3 (03:01→19:30)
[2022-07-21 03:35] VITALS: RESP 15
--- NOTE | 2022-07-21 04:08 | PC.NURSE ---
Patient called typewriter aligner into room at 0400. Patient stated that she was itchy all over . Patient showed typewriter aligner small area on left wrist under wristbands that was pink, small area on right cheek that was pink, and small area on right forearm that was pink. Areas appear pink and irritated from patient scratching. Areas are not warm to the touch or raised. Skin appears dry. Patient asked if this could be an allergic reaction to the antibiotic? Discussed unlikelihood of this as last dose was at 2100. Offered patient lotion to attempt for now, as hospitals are drying on the skin. Patient was receptive. Lathe Set Up Person and patient agreed to try IV benadryl if lotion is ineffective. Patient was showing no signs of distress, no breathing issues, no signs of anaphylaxis, or other signs of an allergic reaction. Care ongoing.
[2022-07-21] MEDS: diphenhydrAMINE HCl INJ 50 MG/ML VIAL 25 MG IV PUSH ×3 (05:45→21:43)
[2022-07-21 06:00] VITALS: BP 141/79; PULSE 77; RESP 16; TEMP 36.7; O2SAT 99
[2022-07-21] MEDS: oxyBUTYnin CHLORIDE 5 MG TABLET 10 MG PO ×2 (08:23→17:09)
[2022-07-21] MEDS: RIVAROXABAN 20 MG TABLET PO (08:24)
[2022-07-21] MEDS: INSULIN GLARGINE (*BKC) 100 UNITS/ML 50 UNITS SUB-Q (08:29)
[2022-07-21 08:31] LABS: Glucose Point of Care 129 mg/dl (65-105)
--- NOTE | 2022-07-21 11:14 | PM.IMPN ---
Progress Note: A&P Assessment and Plan (1) Frequent UTI: Code(s): N39.0 - Urinary tract infection, site not specified Status: Acute Assessment and Plan: Patient has multiple antibiotic allergies. She is tolerating imipenem. Continue the same (2) RLS (restless legs syndrome): Code(s): G25.81 - Restless legs syndrome Status: Acute Assessment and Plan: Continue ropinirole (3) DM type 2 (diabetes mellitus, type 2): Code(s): E11.9 - Type 2 diabetes mellitus without complications Status: Acute Assessment and Plan: Continue insulin Lantus and aspart Subjective Date/time seen: 07/21/22 11:14 Patient reports some nausea Review of Systems Review of Systems: no fever or weight loss no vision changes, no eye discharge no throat pain, no hoarseness, no lymphadenopathy no chest pain, no palpitations no coughing, no wheezing no abdominal pain, no diarrhea, no nausea, had episodes of vomiting yesterday Positive dysuria, no vaginal discharge no leg swelling, no edema no suicidal or homicidal ideation Exam Narrative: general- awake, alert, oriented, no distress, morbidly obese heent- perrl, no nystagmus, no throat swelling, no discharge chest- clear breath sounds, no wheezes, rales, no crackles heart- s1, s2, regular rate and rhythm, no gallops or murmurs abdomen- soft, bowel sounds heard, no rebound or tenderness extremities- no edema or cyanosis psych- no suicidal or homicidal ideation neuro- moves all extremities, no focal neurologic deficit, mentation intact Objective Data Vital Signs Vital Signs: Vital Signs - 24 hr 07/20/22 14:00 07/20/22 20:00 07/20/22 22:00 Temperature 98.2 F 98 F Pulse Rate 79 79 71 Respiratory Rate 16 16 18 Blood Pressure 142/85 H 140/81 Pulse Oximetry 99 99 99 Oxygen Delivery Room Air 07/20/22 23:50 07/21/22 03:35 07/21/22 06:00 Temperature 98.0 F Pulse Rate 77 Respiratory Rate 16 15 16 Blood Pressure 141/79 H Pulse Oximetry 94 99 Oxygen Delivery CPAP CPAP 07/21/22 08:30 Temperature Pulse Rate Respiratory Rate Blood Pressure Pulse Oximetry Oxygen Delivery Room Air Intake/Output Intake/Output: Intake & Output 03/27/23 07/19/22 07/20/22 07/21/22 23:59 23:59 23:59 23:59 Intake Total 250 / 250 1710 / 1710 490 / 490 Output Total 600 / 600 Balance 250 / 250 1110 / 1110 490 / 490 Meds/Results Medications: Active Medications Generic Name Dose Route Start Last Admin Trade Name Freq PRN Reason Stop Dose Admin Hydrocodone Bitart/Acetaminophen 1 tab 07/20/22 00:30 07/21/22 03:01 Hydrocodone/Acetaminophen (*Crx) 7.5-325 Mg Tablet PO 1 tab Q6H PRN Administration Pain Rated 7-10 Amitriptyline HCl 25 mg 07/20/22 00:45 07/20/22 20:12 Amitriptyline Hcl 25 Mg Tablet PO 25 mg HS RODERICK Administration Dextrose 12.5 gm 07/20/22 00:25 Dextrose 50% 25 Gm/50 Ml Syringe IV PUSH PRN PRN Hypoglycemia Protocol Diphenhydramine HCl 25 mg 07/20/22 12:20 07/21/22 05:45 Diphenhydramine Hcl Inj 50 Mg/Ml Vial IV PUSH 25 mg Q4H PRN Administration Itching Glucose 15 gm 07/20/22 00:25 Glucose Oral Gel 15 Gm Of Glucse In 37.5 Gm Tube PO PRN PRN Hypoglycemia Protocol Home Med 1 each 07/20/22 21:00 07/20/22 20:13 Home Medication: (Exemestane 25 Mg Tablet) PO 08/19/22 20:59 1 each HS RODERICK Administration Hydrochlorothiazide 12.5 mg 07/20/22 09:00 07/21/22 08:24 Hydrochlorothiazide 12.5 Mg Capsule PO Not Given DAILY RODERICK Dextrose 1,000 mls @ 100 mls/hr 07/20/22 00:25 Dextrose 5% 1,000 Ml IVPB PRN PRN Hypoglycemia Protocol Imipenem/Cilastatin Sodium 1, 250 mls @ 375 mls/hr 07/20/22 14:00 07/21/22 06:26 000 mg/ Sodium Chloride IVPB Infused Q8HR RODERICK Infusion Insulin Aspart 2 - 5 units 07/20/22 08:00 07/21/22 08:28 Insulin Aspart (*Bkc) 100 Units/Ml SUB-Q Not Given TIDWM SC
[2022-07-21 12:45] LABS: Glucose Point of Care 174 mg/dl (65-105)
[2022-07-21 14:00] VITALS: BP 144/62; PULSE 79; RESP 16; TEMP 36.3; O2SAT 100
[2022-07-21 17:22] LABS: Glucose Point of Care 142 mg/dl (65-105)
[2022-07-21 20:00] VITALS: PULSE 80; RESP 22; O2SAT 97
[2022-07-21 20:49] LABS: Glucose Point of Care 182 mg/dl (65-105)
[2022-07-21] MEDS: AMITRIPTYLINE HCL 25 MG TABLET PO (20:50)
[2022-07-21] MEDS: rOPINIRole HCL 1 MG TABLET 5 MG PO (20:50)
[2022-07-21] MEDS: AZTREONAM 1 GM in SODIUM CHLORIDE 0.9% IV 50 ML 100 ML IVPB (21:43)
[2022-07-21 21:52] VITALS: BP 140/71; PULSE 80; RESP 22; TEMP 36.5; O2SAT 97
[2022-07-22 00:35] VITALS: RESP 17
[2022-07-22] MEDS: HYDROcodone/acetaminophen (*CRX) 7.5-325 MG TABLET 1 TAB PO (03:00)
[2022-07-22] MEDS: AZTREONAM 1 GM in SODIUM CHLORIDE 0.9% IV 50 ML 100 ML IVPB (05:28)
[2022-07-22] MEDS: diphenhydrAMINE HCl INJ 50 MG/ML VIAL 25 MG IV PUSH (05:29)
[2022-07-22 06:00] VITALS: BP 137/70; PULSE 76; RESP 22; TEMP 36.5; O2SAT 97
[2022-07-22 08:33] LABS: Glucose Point of Care 139 mg/dl (65-105)
[2022-07-22] MEDS: oxyBUTYnin CHLORIDE 5 MG TABLET 10 MG PO (08:34)
[2022-07-22] MEDS: RIVAROXABAN 20 MG TABLET PO (08:35)
[2022-07-22] MEDS: INSULIN GLARGINE (*BKC) 100 UNITS/ML 50 UNITS SUB-Q (08:36)
[2022-07-22] MEDS: INSULIN ASPART (*BKC) 100 UNITS/ML 22 UNITS SUB-Q (09:17)
--- NOTE | 2022-07-22 09:58 | PM.DS ---
DS: Admitting Diagnosis Discharge Date 07/22/22 Admitting Diagnosis UTI DS: Discharge Diagnosis Discharge Diagnosis (1) Acute UTI: Code(s): N39.0 - Urinary tract infection, site not specified Status: Acute (2) DM type 2 (diabetes mellitus, type 2): Code(s): E11.9 - Type 2 diabetes mellitus without complications Status: Acute DS: Summary Hospital Course Hospital Course: (1) Frequent UTI: ?Code(s): N39.0 - Urinary tract infection, site not specified ?Status:?Acute ?Assessment and Plan: Patient has multiple antibiotic allergies.? She is tolerating imipenem.? Continue the same. Imipenem changed to aztreonam. patient tolerated that as well. currently stable will dc home with PO augmentin. (2) RLS (restless legs syndrome): ?Code(s): G25.81 - Restless legs syndrome ?Status:?Acute ?Assessment and Plan: Continue ropinirole (3) DM type 2 (diabetes mellitus, type 2): ?Code(s): E11.9 - Type 2 diabetes mellitus without complications ?Status:?Acute ?Assessment and Plan: Continue insulin Lantus and aspart DC home Time Spent with Patient Time attestation: Total time spent providing and/or coordinating discharge services: Exam Narrative: general- awake, alert, oriented, no distress, morbidly obese heent- perrl, no nystagmus, no throat swelling, no discharge chest- clear breath sounds, no wheezes, rales, no crackles heart- s1, s2, regular rate and rhythm, no gallops or murmurs abdomen- soft, bowel sounds heard, no rebound or tenderness extremities- no edema or cyanosis psych- no suicidal or homicidal ideation neuro- moves all extremities, no focal neurologic deficit, mentation intact DS: Data Data Completed and Pending Labs on day of discharge: Labs from last 24 hours 07/22/22 07/21/22 07/21/22 08:31 20:26 17:12 POC Capillary Glucose 139 H 182 H 142 H 07/21/22 12:33 POC Capillary Glucose 174 H Preliminary micro results at discharge 07/19/22 17:45 Blood Culture - Preliminary Blood 07/19/22 17:04 Blood Culture - Preliminary Blood Discharge Plan Discharge Discharging Clinician: Keagan Sainz Anticipated Discharge Date/Time: 07/22/22 09:56 Patient Disposition: Home, Self-Care Activity: no shower Diet: heart healthy Patient Instructions: Antibiotic Form, Rivaroxaban (By mouth) Stand Alone Forms: General Discharge Information Follow-up/Referrals: Viry,Justen Spicer MD [Primary Care Provider] - Discharge Medications: New amoxicillin-pot clavulanate [Augmentin] 500-125 mg tablet 1 tablet PO Q8H Qty: 9 0RF Continued oxybutynin chloride 5 mg tablet 10 mg PO BID amitriptyline 25 mg tablet 25 mg PO HS exemestane 25 mg tablet 25 mg PO HS ropinirole 5 mg tablet 5 mg PO HS insulin glargine [Lantus Solostar U-100 Insulin] 100 unit/mL (3 mL) insulin pen 50 unit SUBCUT QAM Xarelto 20 mg tablet 20 mg PO DAILY Label Comments: ON HOLD 01/04/2020 UNTIL AFTER PROCEDURE hydrocodone-acetaminophen 7.5-325 mg tablet 1 tablet PO Q6H PRN (Reason: Pain) insulin lispro [Humalog KwikPen Insulin] 100 unit/mL insulin pen 22 unit SUBCUT TID methenamine hippurate 1 gram tablet 1 g PO BID hydrochlorothiazide 12.5 mg capsule 12.5 mg PO DAILY Date of admission: 07/19/22 17:36 Primary Care Provider: ShahlaJusten Admitting Provider: Lu Marte Attending physician on admission: Keagan Sainz Condition: Stable
== END 2022-07-22 11:49 | disposition home or self-care (01) ==
LOC: ANHED 17:36 → ANH3MED 18:51
PROVIDERS: Emergency Medicine; Student in an Organized Health Care Education/Training Program; Admitting Provider Internal Medicine; Emergency Provider Emergency Medicine; PCP Internal Medicine; Visit Provider Hospitalist
DX: N39.0 Urinary tract infection, site not specified (principal); B96.20 Unspecified Escherichia coli [E. coli] as the cause of diseases classified elsewhere; G25.81 Restless legs syndrome; E11.42 Type 2 diabetes mellitus with diabetic polyneuropathy; F41.9 Anxiety disorder, unspecified; G89.29 Other chronic pain; M54.9 Dorsalgia, unspecified; E03.9 Hypothyroidism, unspecified; K58.9 Irritable bowel syndrome, unspecified; E66.01 Morbid (severe) obesity due to excess calories; Z68.43 Body mass index [BMI] 50.0-59.9, adult; G47.33 Obstructive sleep apnea (adult) (pediatric); Z99.89 Dependence on other enabling machines and devices; Z96.82 Presence of neurostimulator; D72.829 Elevated white blood cell count, unspecified; Z87.891 Personal history of nicotine dependence; Z86.711 Personal history of pulmonary embolism; Z86.16 Personal history of COVID-19; Z86.718 Personal history of other venous thrombosis and embolism; Z79.4 Long term (current) use of insulin; Z79.01 Long term (current) use of anticoagulants; Z79.891 Long term (current) use of opiate analgesic; Z79.899 Other long term (current) drug therapy; Z83.3 Family history of diabetes mellitus; Z82.49 Family history of ischemic heart disease and other diseases of the circulatory system
CPT/HCPCS: 36415; 80053; 81001; 82948; 83036; 85025; 87040; 87077; 87086; 87186; 94660; 99285; A9270; G0378; J0743; J1200; J1815; J2270; J2405; J7030; J7050

== ENCOUNTER 2022-08-04 10:05 | Emergency (ER) | payer MEDICARE, MEDICAID, SELFPAY ==
--- NOTE | ~2022-08-04 | CT_ITS ---
EXAMINATION: CT abdomen pelvis w con DATE: 08/04/2022 13:03 INDICATION: UTI. Right flank pain. Lower abdomen pain. TECHNIQUE: Computed tomography (CT) of the abdomen and pelvis was performed with 100 cc Omnipaque 350 intravenous contrast. The dose-length product was 1422.18 mGy-cm. Automated exposure control and ite rative reconstruction technique were employed. COMPARISON: CT dated 09/03/2020. FINDINGS: Lung bases are unremarkable. Heart size is normal. No significant pleural or pericardial ef fusion. There are changes of previous ventral abdominal wall hernia repair. The liver, spleen, pancreas, adrenal glands and left kidney are unremarkable. There there are right r enal cysts, largest 1.6 cm. No significant vascular abnormality. No lymphadenopathy. There are change s of cholecystectomy with expected prominence of the common bile duct. Nonobstructive bowel pattern. Colonic diverticulosis without evidence for diverticulitis. Normal appendix. There is bilateral sacro iliitis. There is osteitis pubis. No abnormal pelvic masses or fluid collections. No free air or free fluid. IMPRESSION: 1. No acute abdominal abnormality. Reviewed, dictated and finalized at location L.
[2022-08-04 10:16] VITALS: BP 147/89; PULSE 92; RESP 18; TEMP 36.6; O2SAT 98
[2022-08-04 10:49] LABS: Appearance Urine Clear (Clear); Bacteria Urine None Seen /hpf; Bilirubin Urine Negative (Negative); Color Urine Yellow (Yellow); Glucose Urine UA Negative (Negative); Ketones Urine Negative (Negative); Leukocyte Esterase Ur Negative LEU/UL (Negative); Nitrate Urine Negative (Negative); Non Pathogenic Casts 0-2; Protein Urine Negative (Negative); RBC Urine 0-2 /hpf (0-2); Specific Grav Ur 1.007 (1.001-1.035); Squamous Epithelial Cell Urine None seen /hpf (Few); Urobilinogen Urine 0.2 mg/dL (<2.0); WBC Urine 0-5 /hpf; pH Urine 6.5 (5.0-9.0)
[2022-08-04 10:52] VITALS: BP 153/85; PULSE 80; RESP 16; O2SAT 100
[2022-08-04 11:01] VITALS: BP 148/76; PULSE 71; RESP 16; O2SAT 100
[2022-08-04 11:07] LABS: Add Urine Microscopic? YES
[2022-08-04 11:16] VITALS: BP 133/72; PULSE 77; RESP 16; O2SAT 99
[2022-08-04 11:31] VITALS: BP 142/77; PULSE 80; RESP 16; O2SAT 99
[2022-08-04 11:44] LABS: Basophils Percent Auto 0.5 % (0.2-1.2); Eosinophils Absolute Auto 0.3 K/mm3 (0-0.3); Eosinophils Percent Auto 3.4 % (0-4.4); Hematocrit 42.5 % (37.0-47.0); Hemoglobin 13.3 g/dL (12.0-15.0); Immature Granulocyte Absolute 0.03 K/mm3 (0.00-0.031); Immature Granulocyte Percent A 0.4 % (0-0.5); Lymphocytes Absolute Auto 2.25 K/mm3 (0.9-3.2); Lymphocytes Percent Auto 26.4 % (18.3-44.2); Mean Corpuscular HGB Conc 31.3 g/dl (32-36); Mean Corpuscular Hemoglobin 28.9 pg (26-34); Mean Corpuscular Volume 92.4 fl (80-100); Mean Platelet Volume 9.7 fl (7.4-10.4); Monocytes Absolute Auto 0.6 K/mm3 (0.1-0.6); Monocytes Percent Auto 7.3 % (2.6-8.5); Neutrophils Absolute Auto 5.3 K/mm3 (1.3-6.7); Platelet Count Result 286 k/mm3 (150-375); Red Cell Distribution Width 14.1 % (11.5-14.5); White Blood Count 8.5 K/mm3 (4.5-10.0)
[2022-08-04] MEDS: ONDANSETRON INJ 4 MG/2 ML VIAL IV PUSH (11:49)
[2022-08-04] MEDS: SODIUM CHLORIDE 0.9% IV 1,000 ML 999 ML IV CONT (11:49)
--- NOTE | 2022-08-04 11:55 | ED.FEMALEGU ---
HPI - Female Genitourinary General Chief complaint: Urogenital-Female Stated complaint: UTI symptoms Time Seen by Provider: 08/04/22 11:09 History of Present Illness HPI Narrative: Patient states 7-year-old female with a history of recurrent UTIs, recently hospitalized on Carbapenem, here due to concerns over lower abdominal pressure, generalized malaise, nausea and right flank pain x3 days. Patient states that she was feeling proved after her recent hospitalization but her symptoms returned 3 days ago. Similar to history of UTIs. She denies any fevers, chills, cough, congestion, upper respiratory infectious symptoms. She is seen urologist in the past and has had negative cystoscopies. Related Data Home Medications Medication Instructions Recorded Confirmed amitriptyline 25 mg tablet 25 mg PO HS 01/06/20 07/19/22 exemestane 25 mg tablet 25 mg PO HS 01/06/20 07/19/22 insulin glargine 100 unit/mL (3 50 unit subcut QAM 01/06/20 07/19/22 mL) subcutaneous pen (Lantus Solostar U-100 Insulin) rivaroxaban 20 mg tablet (Xarelto) 20 mg PO DAILY 01/06/20 07/19/22 ropinirole 5 mg tablet 5 mg PO HS 01/06/20 07/19/22 oxybutynin chloride 5 mg tablet 10 mg PO BID 03/13/22 07/19/22 hydrocodone 7.5 mg-acetaminophen 1 tablet PO Q6H PRN Pain 03/19/22 07/19/22 325 mg tablet insulin lispro 100 unit/mL 22 unit subcut TID 03/19/22 07/19/22 subcutaneous pen (Humalog KwikPen (U-100) Insulin) hydrochlorothiazide 12.5 mg capsule 12.5 mg PO DAILY 07/19/22 07/19/22 methenamine hippurate 1 gram tablet 1 g PO BID 07/19/22 07/19/22 Allergies Allergy/AdvReac Type Severity Reaction Status Date / Time ceftriaxone Allergy Severe SOB Verified 08/04/22 10:20 cephalexin Allergy Severe Difficulty Verified 08/04/22 10:20 Breathing Cephalosporins Allergy Severe Difficulty Verified 08/04/22 10:20 Breathing lorazepam Allergy Severe Swelling Verified 08/04/22 10:20 metoclopramide Allergy Intermediate Other Verified 08/04/22 10:20 chlorhexidine Allergy Mild BLISTERING Verified 08/04/22 10:20 levofloxacin Allergy Mild Hives / Verified 08/04/22 10:20 Red Face ketorolac Allergy Itching Verified 08/04/22 10:20 latex Allergy Rash Verified 08/04/22 10:20 nitrofurantoin Allergy Itching Verified 08/04/22 10:20 sulfamethoxazole Allergy Itching Verified 08/04/22 10:20 [From Sulfamethoxazole-Trimethoprim] trazodone Allergy Swelling Verified 08/04/22 10:20 of Lip/Tongue/Throat trimethoprim Allergy Itching Verified 08/04/22 10:20 [From Sulfamethoxazole-Trimethoprim] oxycodone AdvReac Mild Vomiting Verified 08/04/22 10:20 amlodipine AdvReac Swelling Verified 08/04/22 10:20 lisinopril AdvReac Swelling Verified 08/04/22 10:20 meropenem AdvReac Rash Verified 08/04/22 10:20 pregabalin AdvReac Swelling Verified 08/04/22 10:20 reslizumab AdvReac Unknown Verified 08/04/22 10:20 Review of Systems Review of Systems: Gen.: Reports weakness Eyes: Denies eye pain or visual change ENT: Denies congestion Respiratory: Denies shortness of breath or cough CV: Denies chest pain or palpitations GI: Reports nausea. denies burning, urgency, frequency or hematuria Musculoskeletal: Denies back pain or muscle pain Neuro: Denies numbness, tingling, weakness or focal weakness Skin: Denies rash Except as documented, all other systems reviewed and negative PMFSH Past Medical History Medical History (Updated 08/04/22 @ 13:20 by Lila Marroquin PA-C) Anxiety Breast cancer CHF (congestive heart failure) Chronic back pain Collagenous colitis COVID-19 Depression DM type 2 (diabetes mellitus, type 2) DVT (deep venous thrombosis) Hypothyroid IBS (irritable bowel syndrome) Kidney stone Morbid obesity Multiple thyroid nodules LUL on CPAP Peripheral neuropathy Pulmonary embolism positive for coagulation workup RLS (restless legs syndrome) 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) Surgical History Surgical History (Reviewed 12
[2022-08-04 12:02] LABS: Lipase 52 U/L (23-300)
[2022-08-04 12:05] LABS: Alanine Aminotransferase 27 U/L (6-35); Albumin Level 4.2 g/dL (3.5-5.1); Alkaline Phosphatase 99 U/L (38-126); Anion Gap 6 mmol/L (8-16); Aspartate Amino Transferase 26 U/L (14-36); Bilirubin,Total 0.9 mg/dL (0.2-1.3); Blood Urea Nitrogen 13 mg/dL (7-17); Calcium 9.4 mg/dL (8.4-10.2); Carbon Dioxide 30 mmol/L (22-30); Chloride 99 mmol/L (98-107); Estimated Glomerular Filt Rate > 60; Glucose 193 mg/dL (65-110); Potassium 4.3 mmol/L (3.4-5.0); Sodium 135 mmol/L (137-145)
[2022-08-04] MEDS: MORPHINE SULFATE (*CRX) 4 MG/ML INJ IV PUSH (12:21)
[2022-08-04 13:35] VITALS: BP 158/92; PULSE 97; RESP 16; O2SAT 98
== END 2022-08-04 13:35 | disposition home or self-care (01) ==
PROVIDERS: Emergency Medicine; Emergency Provider Physician Assistant; PCP Internal Medicine
DX: R10.30 Lower abdominal pain, unspecified (principal); I50.9 Heart failure, unspecified; E11.42 Type 2 diabetes mellitus with diabetic polyneuropathy; K58.9 Irritable bowel syndrome, unspecified; E66.01 Morbid (severe) obesity due to excess calories; G25.81 Restless legs syndrome; G47.33 Obstructive sleep apnea (adult) (pediatric); F32.A Depression, unspecified; F41.9 Anxiety disorder, unspecified; Z85.3 Personal history of malignant neoplasm of breast; Z86.16 Personal history of COVID-19; Z86.711 Personal history of pulmonary embolism; Z86.718 Personal history of other venous thrombosis and embolism; Z87.442 Personal history of urinary calculi; Z87.440 Personal history of urinary (tract) infections; Z87.891 Personal history of nicotine dependence; Z90.13 Acquired absence of bilateral breasts and nipples; Z90.721 Acquired absence of ovaries, unilateral; Z96.651 Presence of right artificial knee joint; Z96.82 Presence of neurostimulator; Z79.01 Long term (current) use of anticoagulants; Z79.4 Long term (current) use of insulin
CPT/HCPCS: 36415; 74177; 80053; 81001; 83690; 85025; 96361; 96374; 96375; 99284; J2270; J2405; J7030; Q9967

== ENCOUNTER 2022-08-10 23:55 | Emergency (ER) | payer MEDICARE, MEDICAID, SELFPAY ==
--- NOTE | ~2022-08-10 | XR_ITS ---
Left Knee Technique: AP, lateral, and oblique views were obtained. Clinical History: Pain Findings: No fracture or dislocation is seen. There is advanced medial compartment degenerative moran e with prominent osteophyte formation and medial compartment narrowing. There are moderate patellofem oral and lateral compartment osteophytes. Soft tissues are unremarkable. No joint effusion is seen. Impression: No acute fracture or dislocation. Severe degenerative change of the medial compartment. Moderate degenerative change of the lateral and patellofemoral compartment. Reviewed, dictated and finalized at location M. Impression: No acute fracture or dislocation. Severe degenerative change of the medial compartment. Moderate degenerative riley nge of the lateral and patellofemoral compartment.
[2022-08-11 00:09] VITALS: BP 140/74; PULSE 92; RESP 18; TEMP 36.5; O2SAT 98
[2022-08-11 01:31] VITALS: BP 147/91; PULSE 92; RESP 19; O2SAT 100
--- NOTE | 2022-08-11 02:07 | ED.GENADULT ---
HPI - General Adult General Chief complaint: Extremity Problem,Nontraumatic Stated complaint: left lower leg pain Time Seen by Provider: 08/11/22 01:38 History of Present Illness HPI narrative: This is a 67-year-old female presenting ED with a chief complaint of knee pain. Patient says she has been having knee pain for months but over the last 2 days it has gotten significantly worse. It is a sharp pain all over her knee that radiates down into her foot. In 7 on 10 intensity and constant. She took some hydrocodone without relief. It is worse with moving and weight-bearing. She denies fever, chills, redness or swelling of the joint. The patient has had a complete knee replacement on the right side. She has not had the left done yet. Related Data Home Medications Medication Instructions Recorded Confirmed amitriptyline 25 mg tablet 25 mg PO HS 01/06/20 07/19/22 exemestane 25 mg tablet 25 mg PO HS 01/06/20 07/19/22 insulin glargine 100 unit/mL (3 50 unit subcut QAM 01/06/20 07/19/22 mL) subcutaneous pen (Lantus Solostar U-100 Insulin) rivaroxaban 20 mg tablet (Xarelto) 20 mg PO DAILY 01/06/20 07/19/22 ropinirole 5 mg tablet 5 mg PO HS 01/06/20 07/19/22 oxybutynin chloride 5 mg tablet 10 mg PO BID 03/13/22 07/19/22 hydrocodone 7.5 mg-acetaminophen 1 tablet PO Q6H PRN Pain 03/19/22 07/19/22 325 mg tablet insulin lispro 100 unit/mL 22 unit subcut TID 03/19/22 07/19/22 subcutaneous pen (Humalog KwikPen (U-100) Insulin) hydrochlorothiazide 12.5 mg capsule 12.5 mg PO DAILY 07/19/22 07/19/22 methenamine hippurate 1 gram tablet 1 g PO BID 07/19/22 07/19/22 Allergies Allergy/AdvReac Type Severity Reaction Status Date / Time ceftriaxone Allergy Severe SOB Verified 08/04/22 10:20 cephalexin Allergy Severe Difficulty Verified 08/04/22 10:20 Breathing Cephalosporins Allergy Severe Difficulty Verified 08/04/22 10:20 Breathing lorazepam Allergy Severe Swelling Verified 08/04/22 10:20 metoclopramide Allergy Intermediate Other Verified 08/04/22 10:20 chlorhexidine Allergy Mild BLISTERING Verified 08/04/22 10:20 levofloxacin Allergy Mild Hives / Verified 08/04/22 10:20 Red Face ketorolac Allergy Itching Verified 08/04/22 10:20 latex Allergy Rash Verified 08/04/22 10:20 nitrofurantoin Allergy Itching Verified 08/04/22 10:20 sulfamethoxazole Allergy Itching Verified 08/04/22 10:20 [From Sulfamethoxazole-Trimethoprim] trazodone Allergy Swelling Verified 08/04/22 10:20 of Lip/Tongue/Throat trimethoprim Allergy Itching Verified 08/04/22 10:20 [From Sulfamethoxazole-Trimethoprim] oxycodone AdvReac Mild Vomiting Verified 08/04/22 10:20 amlodipine AdvReac Swelling Verified 08/04/22 10:20 lisinopril AdvReac Swelling Verified 08/04/22 10:20 meropenem AdvReac Rash Verified 08/04/22 10:20 pregabalin AdvReac Swelling Verified 08/04/22 10:20 reslizumab AdvReac Unknown Verified 08/04/22 10:20 PMFSH Past Medical History Medical History Anxiety Breast cancer CHF (congestive heart failure) Chronic back pain Collagenous colitis COVID-19 Depression DM type 2 (diabetes mellitus, type 2) DVT (deep venous thrombosis) Hypothyroid IBS (irritable bowel syndrome) Kidney stone Morbid obesity Multiple thyroid nodules LUL on CPAP Peripheral neuropathy Pulmonary embolism positive for coagulation workup RLS (restless legs syndrome) 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) Surgical History Surgical History H/O hernia repair H/O mastectomy bilateral History of cardiac catheterization no CAD noted History of esophagogastroduodenoscopy (EGD) History of right oophorectomy History of total right knee replacement Hx of cholecystectomy Hx of colonoscopy S/P insertion of spinal cord stimulator S/P ureteral stent placement Family History Family History (Reviewed 08/11/22 @ 02:08 by Brian
[2022-08-11] MEDS: HYDROcodone/acetaminophen (*CRX) 5-325 MG TABLET 2 TAB PO (02:20)
== END 2022-08-11 02:59 | disposition home or self-care (01) ==
PROVIDERS: Emergency Provider Emergency Medicine; PCP Internal Medicine
DX: M25.562 Pain in left knee (principal); F41.9 Anxiety disorder, unspecified; I50.9 Heart failure, unspecified; E11.42 Type 2 diabetes mellitus with diabetic polyneuropathy; E66.01 Morbid (severe) obesity due to excess calories; Z68.41 Body mass index [BMI] 40.0-44.9, adult; E03.9 Hypothyroidism, unspecified; K58.9 Irritable bowel syndrome, unspecified; F32.A Depression, unspecified; G47.33 Obstructive sleep apnea (adult) (pediatric); G25.81 Restless legs syndrome; Z86.16 Personal history of COVID-19; Z86.718 Personal history of other venous thrombosis and embolism; Z86.711 Personal history of pulmonary embolism; Z87.440 Personal history of urinary (tract) infections; Z87.891 Personal history of nicotine dependence; Z96.651 Presence of right artificial knee joint; Z96.82 Presence of neurostimulator; Z90.13 Acquired absence of bilateral breasts and nipples; Z90.721 Acquired absence of ovaries, unilateral; Z90.49 Acquired absence of other specified parts of digestive tract; Z79.4 Long term (current) use of insulin; Z79.01 Long term (current) use of anticoagulants
CPT/HCPCS: 73564; 99283; A9270

== ENCOUNTER 2022-08-12 01:58 | Emergency (ER) | payer MEDICARE, MEDICAID, SELFPAY ==
--- NOTE | ~2022-08-12 | XR_ITS ---
XR chest 1V portable 08/12/2022 03:39 Indication: Nausea. High blood sugar. Procedure: AP portable chest Comparison: Comparison to multiple prior studies sequentially, with oldest reviewed study dated 01/13. Findings: Cardiomegaly with mild interstitial edema. No pleural effusion or pneumothorax. Epidural el ectrodes are present, position unchanged. Impression: 1: Cardiomegaly with mild interstitial edema. Reviewed, dictated and finalized at location A. Impression: 1: Cardiomegaly with mild interstitial edema.
[2022-08-12 02:09] VITALS: BP 144/77; PULSE 93; RESP 20; TEMP 37.2; O2SAT 99
--- NOTE | 2022-08-12 03:16 | ECG_ITS ---
Measurements Intervals [place] Rate: 86 P: 8 [place]: 152 QRS: -2 QRSD: 90 T: 50 QT: 372 QTc: 446 Interpretive Statements SINUS RHYTHM NONSPECIFIC T-WAVE ABNORMALITY ABNORMAL ECG COMPARED TO ECG 03/25/2022 11:10:20 NO DIFFERENCE Electronically Signed On 08-12-2022 7:24:00 CDT by Justen Jean-Baptiste M.D.
--- NOTE | 2022-08-12 03:19 | ED.NAVMDI ---
HPI - Nausea/Vomiting/Diarrhea General Chief complaint: Recheck/Abnormal Lab/Rx Time Seen by Provider: 08/12/22 03:16 History of Present Illness HPI Narrative: Patient is a 67-year-old female with a history of diabetes, hypertension, chronic back pain, DVT on Xarelto presenting with hyperglycemia. Patient states that she recently got some steroid injections for her chronic back pain. States that she has been monitoring her blood glucoses at home and states that they have been high lately. States that it got up to 500s today and she felt nauseated and off . States that she gave herself an extra dose of her short acting insulin but her sugars remained high in the 300s so her PCP told her to come in for evaluation. Patient states that she feels nauseated and thirsty. She denies abdominal pain, diarrhea, dysuria, leg swelling. She denies chest pain, shortness of breath, cough, headache, numbness or weakness. Related Data Home Medications Medication Instructions Recorded Confirmed amitriptyline 25 mg tablet 25 mg PO HS 01/06/20 07/19/22 exemestane 25 mg tablet 25 mg PO HS 01/06/20 07/19/22 insulin glargine 100 unit/mL (3 50 unit subcut QAM 01/06/20 07/19/22 mL) subcutaneous pen (Lantus Solostar U-100 Insulin) rivaroxaban 20 mg tablet (Xarelto) 20 mg PO DAILY 01/06/20 07/19/22 ropinirole 5 mg tablet 5 mg PO HS 01/06/20 07/19/22 oxybutynin chloride 5 mg tablet 10 mg PO BID 03/13/22 07/19/22 hydrocodone 7.5 mg-acetaminophen 1 tablet PO Q6H PRN Pain 03/19/22 07/19/22 325 mg tablet insulin lispro 100 unit/mL 22 unit subcut TID 03/19/22 07/19/22 subcutaneous pen (Humalog KwikPen (U-100) Insulin) hydrochlorothiazide 12.5 mg capsule 12.5 mg PO DAILY 07/19/22 07/19/22 methenamine hippurate 1 gram tablet 1 g PO BID 07/19/22 07/19/22 Allergies Allergy/AdvReac Type Severity Reaction Status Date / Time ceftriaxone Allergy Severe SOB Verified 08/13/22 02:09 cephalexin Allergy Severe Difficulty Verified 08/13/22 02:09 Breathing Cephalosporins Allergy Severe Difficulty Verified 08/13/22 02:09 Breathing lorazepam Allergy Severe Swelling Verified 08/13/22 02:09 metoclopramide Allergy Intermediate Other Verified 08/13/22 02:09 chlorhexidine Allergy Mild BLISTERING Verified 08/13/22 02:09 levofloxacin Allergy Mild Hives / Verified 08/13/22 02:09 Red Face ketorolac Allergy Itching Verified 08/13/22 02:09 latex Allergy Rash Verified 08/13/22 02:09 nitrofurantoin Allergy Itching Verified 08/13/22 02:09 sulfamethoxazole Allergy Itching Verified 08/13/22 02:09 [From Sulfamethoxazole-Trimethoprim] trazodone Allergy Swelling Verified 08/13/22 02:09 of Lip/Tongue/Throat trimethoprim Allergy Itching Verified 08/13/22 02:09 [From Sulfamethoxazole-Trimethoprim] oxycodone AdvReac Mild Vomiting Verified 08/13/22 02:09 amlodipine AdvReac Swelling Verified 08/13/22 02:09 lisinopril AdvReac Swelling Verified 08/13/22 02:09 meropenem AdvReac Rash Verified 08/13/22 02:09 pregabalin AdvReac Swelling Verified 08/13/22 02:09 reslizumab AdvReac Unknown Verified 08/13/22 02:09 Review of Systems Review of Systems: All systems reviewed & are unremarkable except as noted in HPI and below PMFSH Past Medical History Medical History Anxiety Breast cancer CHF (congestive heart failure) Chronic back pain Collagenous colitis COVID-19 Depression DM type 2 (diabetes mellitus, type 2) DVT (deep venous thrombosis) Hypothyroid IBS (irritable bowel syndrome) Kidney stone Morbid obesity Multiple thyroid nodules LUL on CPAP Peripheral neuropathy Pulmonary embolism positive for coagulation workup RLS (restless legs syndrome) 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) Surgical History Surgical History H/O hernia repair H/O mastectomy bilateral History of cardiac catheterization no CAD noted Histo
[2022-08-12] MEDS: ONDANSETRON INJ 4 MG/2 ML VIAL IV PUSH (03:45)
[2022-08-12] MEDS: HYDROcodone/acetaminophen (*CRX) 7.5-325 MG TABLET 1 TAB PO (03:45)
[2022-08-12] MEDS: SODIUM CHLORIDE 0.9% IV 1,000 ML 999 ML IV CONT ×2 (03:45→05:06)
[2022-08-12 04:21] LABS: Basophils Percent Auto 0.2 % (0.2-1.2); Hematocrit 44.6 % (37.0-47.0); Hemoglobin 14.1 g/dL (12.0-15.0); Immature Granulocyte Absolute 0.06 K/mm3 (0.00-0.031); Immature Granulocyte Percent A 0.6 % (0-0.5); Lymphocytes Absolute Auto 1.16 K/mm3 (0.9-3.2); Lymphocytes Percent Auto 12.4 % (18.3-44.2); Mean Corpuscular HGB Conc 31.6 g/dl (32-36); Mean Corpuscular Hemoglobin 28.9 pg (26-34); Mean Corpuscular Volume 91.4 fl (80-100); Mean Platelet Volume 10.9 fl (7.4-10.4); Monocytes Absolute Auto 0.1 K/mm3 (0.1-0.6); Monocytes Percent Auto 1.5 % (2.6-8.5); Neutrophils Percent Auto 85.3 % (45.5-73.1); Platelet Count Result 326 k/mm3 (150-375); Red Blood Count 4.88 M/mm3 (4.2-5.4); Red Cell Distribution Width 13.9 % (11.5-14.5); White Blood Count 9.4 K/mm3 (4.5-10.0)
[2022-08-12 04:26] LABS: Appearance Urine Clear (Clear); Bacteria Urine None Seen /hpf; Bilirubin Urine Negative (Negative); Blood Urine Trace (Negative); Color Urine Yellow (Yellow); Glucose Urine UA 3+ mg/dL (Negative); Ketones Urine Negative (Negative); Leukocyte Esterase Ur Negative LEU/UL (Negative); Nitrate Urine Negative (Negative); Non Pathogenic Casts 0-2; Protein Urine Negative (Negative); Specific Grav Ur 1.031 (1.001-1.035); Squamous Epithelial Cell Urine None seen /hpf (Few); Urobilinogen Urine 0.2 mg/dL (<2.0); WBC Urine 0-5 /hpf
[2022-08-12 04:33] LABS: INR 1.6; Prothrombin Time 18.5 Seconds (11.1-14.7)
[2022-08-12 04:34] LABS: Partial Thromboplastin Time 34.2 SECONDS (22.3-36.8)
[2022-08-12 04:38] LABS: Lactic Acid Reflex 3.8 mmol/L (0.7-2.0)
[2022-08-12 04:41] VITALS: BP 139/89; PULSE 80; RESP 18; TEMP 36.6; O2SAT 99
[2022-08-12 04:41] LABS: Albumin Level 4.6 g/dL (3.5-5.1); Alkaline Phosphatase 101 U/L (38-126); Anion Gap 10 mmol/L (8-16); Aspartate Amino Transferase 30 U/L (14-36); Bilirubin,Total 0.6 mg/dL (0.2-1.3); Blood Urea Nitrogen 19 mg/dL (7-17); Calcium 9.7 mg/dL (8.4-10.2); Carbon Dioxide 26 mmol/L (22-30); Chloride 99 mmol/L (98-107); Estimated CRCL calculation 136 ml/min; Estimated Glomerular Filt Rate > 60; Glucose 496 mg/dL (65-110); Lipase 55 U/L (23-300); Magnesium 1.7 mg/dL (1.6-2.3); Potassium 4.3 mmol/L (3.4-5.0); Sodium 135 mmol/L (137-145)
[2022-08-12 04:45] LABS: Beta-Hydroxybutyrate/Acetoacetate 0.12 mmol/L (0.02-0.27)
[2022-08-12 04:47] LABS: Troponin I < 0.012 ng/mL (0.000-0.034)
[2022-08-12] MEDS: INSULIN HUMAN REGULAR (*BKC) 100 UNITS/ML 10 UNITS SUB-Q (05:06)
[2022-08-12 05:16] LABS: Add Urine Microscopic? YES
[2022-08-12 05:30] LABS: Fractional Inspired Oxygen 21 %; HCO3 VBG 26.1 mEq/l (24.0-30.0); PCO2 VBG 47.5 mmHg (42.0-48.0); PO2 VBG 36.9 mmHg (35.0-45.0); pH VBG 7.358 (7.300-7.400)
[2022-08-12 05:35] LABS: Alanine Aminotransferase 33 U/L (6-35)
[2022-08-12 06:12] LABS: Glucose Point of Care 360 mg/dl (65-105)
[2022-08-12 06:12] LABS: Glucose Point of Care 399 mg/dl (65-105)
[2022-08-12] MEDS: NAPROXEN 500 MG TABLET PO (06:12)
[2022-08-12 06:17] VITALS: BP 136/81; PULSE 79; RESP 18; TEMP 36.6; O2SAT 99
[2022-08-12 06:39] LABS: Lactic Acid Reflex 2.6 mmol/L (0.7-2.0)
[2022-08-12 06:51] LABS: Troponin I < 0.012 ng/mL (0.000-0.034)
[2022-08-12 07:05] VITALS: BP 141/79; PULSE 79; RESP 18; TEMP 36.6; O2SAT 99
[2022-08-12 07:19] LABS: Reflex Lactic Acid Yes or No Add Lactic
== END 2022-08-12 07:06 | disposition home or self-care (01) ==
PROVIDERS: Emergency Provider Emergency Medicine; PCP Internal Medicine
DX: E11.65 Type 2 diabetes mellitus with hyperglycemia (principal); R11.2 Nausea with vomiting, unspecified; I50.9 Heart failure, unspecified; E11.42 Type 2 diabetes mellitus with diabetic polyneuropathy; E66.01 Morbid (severe) obesity due to excess calories; Z68.41 Body mass index [BMI] 40.0-44.9, adult; E03.9 Hypothyroidism, unspecified; K58.9 Irritable bowel syndrome, unspecified; F32.A Depression, unspecified; G47.33 Obstructive sleep apnea (adult) (pediatric); G25.81 Restless legs syndrome; Z86.16 Personal history of COVID-19; Z86.718 Personal history of other venous thrombosis and embolism; Z86.711 Personal history of pulmonary embolism; Z87.440 Personal history of urinary (tract) infections; Z87.891 Personal history of nicotine dependence; Z96.651 Presence of right artificial knee joint; Z96.82 Presence of neurostimulator; Z90.13 Acquired absence of bilateral breasts and nipples; Z90.721 Acquired absence of ovaries, unilateral; Z90.49 Acquired absence of other specified parts of digestive tract; Z79.4 Long term (current) use of insulin; Z79.01 Long term (current) use of anticoagulants
CPT/HCPCS: 36415; 71045; 80053; 81001; 82010; 82803; 82948; 83605; 83690; 83735; 84484; 85025; 85610; 85730; 93005; 96361; 96374; 99284; A9270; J1815; J2405; J7030

== ENCOUNTER 2022-08-13 02:07 | Emergency (ER) | payer MEDICARE, MEDICAID, SELFPAY ==
[2022-08-13] VITALS (26 sets, daily range): BP systolic 127–168; BP diastolic 79–98; PULSE 71–95; RESP 16–29; TEMP 36.4; O2SAT 92–100
--- NOTE | ~2022-08-13 | CT_ITS ---
EXAMINATION: CT abdomen pelvis w con INDICATION: Nausea and vomiting, hyperglycemia TECHNIQUE: Computed tomographic images of the abdomen and pelvis were obtained after the administrati on of 100 cc of Omnipaque 350 intravenous contrast. The dose-length product (DLP) was 1444.46 mGy-cm. Automated exposure control and iterative reconstruction technique were employed. COMPARISON: 08/04/2022 FINDINGS: Minimal dependent atelectasis is present in the lung bases. The heart size is normal. The g allbladder is surgically absent. The liver, spleen, pancreas, and adrenal glands are normal. There is a 1.5 cm cyst of the right kidney. The left kidney is unremarkable. No pathologically enlarged abdom inal or pelvic lymph nodes are identified. No free intraperitoneal gas or evidence of bowel obstructi on. There are changes of mesh ventral hernia repair. 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 There is moderate lumbar spondylosis. Colonic diverticulosis is present without evidence of diverticulitis. IMPRESSION: 1. No CT correlate for the patient's symptoms. Reviewed, dictated and finalized at location A.
--- NOTE | ~2022-08-13 | XR_ITS ---
EXAMINATION: XR chest 1V portable INDICATION: Shortness of breath TECHNIQUE: Portable AP chest at 0515 hours COMPARISON: 08/12/2012 FINDINGS: There are bilateral perihilar and bibasilar opacities. No pleural effusion or pneumothorax. The cardiomediastinal silhouette is normal. IMPRESSION: 1. Bilateral perihilar and bibasilar opacities, consistent with pulmonary edema versus pneumonia vers us atelectasis. Reviewed, dictated and finalized at location A. IMPRESSION: 1. Bilateral perihilar and bibasilar opacities, consistent with pulmonary edema versus pneumonia versus atelectasis.
[2022-08-13 02:21] LABS: Glucose Point of Care 387 mg/dl (65-105)
--- NOTE | 2022-08-13 04:52 | ECG_ITS ---
Measurements Intervals [place] Rate: 87 P: 57 [place]: 135 QRS: 13 QRSD: 81 T: 43 QT: 352 QTc: 424 Interpretive Statements SINUS RHYTHM EARLY R-WAVE TRANSITION NONSPECIFIC T-WAVE ABNORMALITY BORDERLINE ECG COMPARED TO ECG 08/12/2022 03:23:45 NO SIGNIFICANT CHANGES Electronically Signed On 08-13-2022 7:28:57 CDT by Justen Jean-Baptiste M.D.
--- NOTE | 2022-08-13 04:53 | ED.RECABL ---
HPI - Recheck/Abnormal Lab/Rx General Chief Complaint: Recheck/Abnormal Lab/Rx <Aislinn Allison MD - Last Filed: 08/18/22 16:27> Stated Complaint: high blood sugar 488 <Aislinn Allison MD - Last Filed: 08/18/22 16:27> Time Seen by Provider: 08/13/22 04:08 <Aislinn Allison MD - Last Filed: 08/18/22 16:27> History of Present Illness HPI narrative: Patient is a 67-year-old female with a history of diabetes, hypertension, DVT on Xarelto presenting with hyperglycemia. Patient was here last night with similar symptoms. She was able to go home and states that she felt well throughout the day. States that she had a late dinner and then she became very nauseated. States that she was able to go to sleep but then she awoke feeling short of breath. Denies chest pain. She does complain of some left upper quadrant and epigastric pain. States that she continues to feel very nauseated. States that her mouth feels dry. States that she checked her blood sugar at home and it was 488. She denies headaches, vision changes, numbness or weakness, chest pain, diarrhea, dysuria, leg swelling. <Aislinn Allison MD - Last Filed: 08/18/22 16:27> Related Data Home Medications: Home Medications Medication Instructions Recorded Confirmed amitriptyline 25 mg tablet 25 mg PO HS 01/06/20 07/19/22 exemestane 25 mg tablet 25 mg PO HS 01/06/20 07/19/22 insulin glargine 100 unit/mL (3 50 unit subcut QAM 01/06/20 07/19/22 mL) subcutaneous pen (Lantus Solostar U-100 Insulin) rivaroxaban 20 mg tablet (Xarelto) 20 mg PO DAILY 01/06/20 07/19/22 ropinirole 5 mg tablet 5 mg PO HS 01/06/20 07/19/22 oxybutynin chloride 5 mg tablet 10 mg PO BID 03/13/22 07/19/22 hydrocodone 7.5 mg-acetaminophen 1 tablet PO Q6H PRN Pain 03/19/22 07/19/22 325 mg tablet insulin lispro 100 unit/mL 22 unit subcut TID 03/19/22 07/19/22 subcutaneous pen (Humalog KwikPen (U-100) Insulin) hydrochlorothiazide 12.5 mg capsule 12.5 mg PO DAILY 07/19/22 07/19/22 methenamine hippurate 1 gram tablet 1 g PO BID 07/19/22 07/19/22 <Aislinn Allison MD - Last Filed: 08/18/22 16:27> Allergies/Adverse Reactions: Allergies Allergy/AdvReac Type Severity Reaction Status Date / Time ceftriaxone Allergy Severe SOB Verified 08/13/22 02:09 cephalexin Allergy Severe Difficulty Verified 08/13/22 02:09 Breathing Cephalosporins Allergy Severe Difficulty Verified 08/13/22 02:09 Breathing lorazepam Allergy Severe Swelling Verified 08/13/22 02:09 metoclopramide Allergy Intermediate Other Verified 08/13/22 02:09 chlorhexidine Allergy Mild BLISTERING Verified 08/13/22 02:09 levofloxacin Allergy Mild Hives / Verified 08/13/22 02:09 Red Face ketorolac Allergy Itching Verified 08/13/22 02:09 latex Allergy Rash Verified 08/13/22 02:09 nitrofurantoin Allergy Itching Verified 08/13/22 02:09 sulfamethoxazole Allergy Itching Verified 08/13/22 02:09 [From Sulfamethoxazole-Trimethoprim] trazodone Allergy Swelling Verified 08/13/22 02:09 of Lip/Tongue/Throat trimethoprim Allergy Itching Verified 08/13/22 02:09 [From Sulfamethoxazole-Trimethoprim] oxycodone AdvReac Mild Vomiting Verified 08/13/22 02:09 amlodipine AdvReac Swelling Verified 08/13/22 02:09 lisinopril AdvReac Swelling Verified 08/13/22 02:09 meropenem AdvReac Rash Verified 08/13/22 02:09 pregabalin AdvReac Swelling Verified 08/13/22 02:09 reslizumab AdvReac Unknown Verified 08/13/22 02:09 <Aislinn Allison MD - Last Filed: 08/18/22 16:27> Review of Systems Review of Systems: All systems reviewed & are unremarkable except as noted in HPI and below <Aislinn Allison MD - Last Filed: 08/18/22 16:27> PMFSH Past Medical History Medical History: Medical History Anxiety Breast cancer CHF (congestive heart failure) Chronic back pain Collagenous colitis COVID-19 Depression
[2022-08-13] MEDS: ONDANSETRON INJ 4 MG/2 ML VIAL IV PUSH (05:18)
[2022-08-13 05:19] LABS: Basophils Percent Auto 0.2 % (0.2-1.2); Eosinophils Percent Auto 0.1 % (0-4.4); Hematocrit 40.9 % (37.0-47.0); Hemoglobin 12.9 g/dL (12.0-15.0); Immature Granulocyte Absolute 0.09 K/mm3 (0.00-0.031); Immature Granulocyte Percent A 0.6 % (0-0.5); Lymphocytes Absolute Auto 2.43 K/mm3 (0.9-3.2); Lymphocytes Percent Auto 15.4 % (18.3-44.2); Mean Corpuscular HGB Conc 31.5 g/dl (32-36); Mean Corpuscular Hemoglobin 28.7 pg (26-34); Mean Corpuscular Volume 91.1 fl (80-100); Mean Platelet Volume 10.2 fl (7.4-10.4); Monocytes Absolute Auto 1.4 K/mm3 (0.1-0.6); Neutrophils Absolute Auto 11.8 K/mm3 (1.3-6.7); Neutrophils Percent Auto 74.7 % (45.5-73.1); Platelet Count Result 315 k/mm3 (150-375); Red Blood Count 4.49 M/mm3 (4.2-5.4); Red Cell Distribution Width 14.1 % (11.5-14.5); White Blood Count 15.7 K/mm3 (4.5-10.0)
[2022-08-13] MEDS: SODIUM CHLORIDE 0.9% IV 1,000 ML 999 ML IV CONT ×3 (05:19→07:55)
[2022-08-13 05:35] LABS: INR 1.1; Prothrombin Time 13.9 Seconds (11.1-14.7)
[2022-08-13 05:36] LABS: Lactic Acid Reflex 2.4 mmol/L (0.7-2.0); Partial Thromboplastin Time 25.3 SECONDS (22.3-36.8)
[2022-08-13 05:40] LABS: Alanine Aminotransferase 32 U/L (6-35); Albumin Level 4.3 g/dL (3.5-5.1); Alkaline Phosphatase 79 U/L (38-126); Anion Gap 8 mmol/L (8-16); Aspartate Amino Transferase 35 U/L (14-36); Bilirubin,Total 0.7 mg/dL (0.2-1.3); Blood Urea Nitrogen 38 mg/dL (7-17); Carbon Dioxide 27 mmol/L (22-30); Chloride 100 mmol/L (98-107); Estimated CRCL calculation 86 ml/min; Estimated Glomerular Filt Rate > 60; Glucose 396 mg/dL (65-110); Potassium 4.9 mmol/L (3.4-5.0); Sodium 135 mmol/L (137-145)
[2022-08-13 05:41] LABS: Beta-Hydroxybutyrate/Acetoacetate 0.11 mmol/L (0.02-0.27)
[2022-08-13 05:46] LABS: Appearance Urine Clear (Clear); Bilirubin Urine Negative (Negative); Blood Urine Negative (Negative); Color Urine Yellow (Yellow); Glucose Urine UA 3+ mg/dL (Negative); Ketones Urine Negative (Negative); Leukocyte Esterase Ur Negative LEU/UL (Negative); Nitrate Urine Negative (Negative); Protein Urine Negative (Negative); Specific Grav Ur 1.029 (1.001-1.035); Urobilinogen Urine 0.2 mg/dL (<2.0); pH Urine 5.5 (5.0-9.0)
[2022-08-13 05:48] LABS: Add Urine Microscopic? NO
[2022-08-13 05:48] LABS: NT Pro B Type Natriuretic Pept 135 pg/mL (19.9-100); Troponin I < 0.012 ng/mL (0.000-0.034)
[2022-08-13 05:55] LABS: Influenza A QL RT-PCR Negative (Negative); Influenza B QL RT-PCR Negative (Negative); SARS-CoV-2 RNA PCR Negative (Negative)
--- NOTE | 2022-08-13 06:07 | PC.NURSE ---
patient to CT
[2022-08-13 06:08] LABS: Lipase 63 U/L (23-300)
[2022-08-13] MEDS: INSULIN HUMAN REGULAR (*BKC) 100 UNITS/ML 10 UNITS IV PUSH (06:27)
[2022-08-13] MEDS: HYDROcodone/acetaminophen (*CRX) 7.5-325 MG TABLET 1 TAB PO (07:54)
[2022-08-13 08:16] LABS: Reflex Lactic Acid Yes or No Add Lactic
[2022-08-13 08:38] LABS: Troponin I < 0.012 ng/mL (0.000-0.034)
[2022-08-13 08:41] LABS: Lactic Acid 1.7 mmol/L (0.7-2.0)
--- NOTE | 2022-08-13 10:18 | PC.NURSE ---
blood sugar 273 at this time.
[2022-08-13 10:20] LABS: Glucose Point of Care 273 mg/dl (65-105)
[2022-08-13 12:16] LABS: Troponin I 0.016 ng/mL (0.000-0.034)
== END 2022-08-13 12:54 | disposition home or self-care (01) ==
PROVIDERS: Emergency Provider Emergency Medicine; PCP Internal Medicine
DX: E11.65 Type 2 diabetes mellitus with hyperglycemia (principal); E86.0 Dehydration; I50.9 Heart failure, unspecified; E11.42 Type 2 diabetes mellitus with diabetic polyneuropathy; E66.01 Morbid (severe) obesity due to excess calories; Z68.41 Body mass index [BMI] 40.0-44.9, adult; E03.9 Hypothyroidism, unspecified; K58.9 Irritable bowel syndrome, unspecified; F32.A Depression, unspecified; G47.33 Obstructive sleep apnea (adult) (pediatric); G25.81 Restless legs syndrome; Z86.16 Personal history of COVID-19; Z86.711 Personal history of pulmonary embolism; Z86.718 Personal history of other venous thrombosis and embolism; Z87.440 Personal history of urinary (tract) infections; Z87.891 Personal history of nicotine dependence; Z96.651 Presence of right artificial knee joint; Z96.82 Presence of neurostimulator; Z90.13 Acquired absence of bilateral breasts and nipples; Z90.721 Acquired absence of ovaries, unilateral; Z90.49 Acquired absence of other specified parts of digestive tract; Z79.4 Long term (current) use of insulin; Z79.01 Long term (current) use of anticoagulants
CPT/HCPCS: 71045; 74177; 80053; 81003; 82010; 82948; 83605; 83690; 83735; 83880; 84484; 85025; 85610; 85730; 87636; 93005; 96361; 96374; 96375; 99284; A9270; J1815; J2405; J7030; Q9967

== ENCOUNTER 2022-09-19 22:12 | Emergency (ER) | payer MEDICARE, MEDICAID, SELFPAY ==
--- NOTE | ~2022-09-19 | XR_ITS ---
Clinical Indication: Chest pain PA and lateral views of the chest: Comparison: 08/13/2022 Findings: The lungs are clear, without evidence of focal consolidation or pleural effusion. Cardiome diastinal silhouette is within normal limits. Bones and soft tissues are stable. Impression: Clear lungs. Reviewed, dictated and finalized at location . Impression: Clear lungs.
--- NOTE | ~2022-09-19 | CT_ITS ---
Clinical Indication: Shortness of breath, history of pulmonary embolus CT Scan of the Chest with Contrast: Technique: Contiguous sections were acquired throughout the chest after intravenous administration of 100 cc of Omnipaque 350. Dose reduction technique was used on this scan by utilizing automated expos ure control and iterative reconstruction technique. The dose-length product (DLP) was 861.70 mGy-cm. COMPARISON: 03/19/2022 Findings: Stable hypodense right thyroid lobe nodule. There is no evidence of any significant mediastinal, hilar or axillary lymphadenopathy. There is no f illing defect in the pulmonary arterial tree to suggest pulmonary embolus. There is no evidence of ao rtic dissection or aneurysm. There is no evidence of pleural or pericardial effusion. The lungs are clear. No pulmonary nodules or infiltrates are noted. Images through the upper abdomen reveal no abnormalities. Spinal cord stimulator in place. Impression: No evidence of pulmonary embolus, aortic dissection, or aortic aneurysm. Clear lungs. Reviewed, dictated and finalized at location . Impression: No evidence of pulmonary embolus, aortic dissection, or aortic aneurysm. Clear lungs.
[2022-09-19 22:15] VITALS: BP 187/89; PULSE 84; RESP 20; TEMP 36.4; O2SAT 100
--- NOTE | 2022-09-19 22:18 | ECG_ITS ---
Measurements Intervals [place] Rate: 84 P: 42 [place]: 138 QRS: 2 QRSD: 92 T: 50 QT: 370 QTc: 440 Interpretive Statements SINUS RHYTHM EARLY PRECORDIAL R/S TRANSITION BORDERLINE ECG COMPARED TO ECG 08/13/2022 05:01:53 NO SIGNIFICANT CHANGES Electronically Signed On 09-20-2022 6:45:06 CDT by Jonatan Parra D.O.
[2022-09-19 22:30] LABS: Hematocrit 41.4 % (37.0-47.0); Hemoglobin 13.3 g/dL (12.0-15.0); Mean Corpuscular HGB Conc 32.1 g/dl (32-36); Mean Corpuscular Hemoglobin 29.2 pg (26-34); Mean Corpuscular Volume 90.8 fl (80-100); Mean Platelet Volume 9.6 fl (7.4-10.4); Platelet Count Result 312 k/mm3 (150-375); Red Blood Count 4.56 M/mm3 (4.2-5.4); Red Cell Distribution Width 13.9 % (11.5-14.5); White Blood Count 13.7 K/mm3 (4.5-10.0)
[2022-09-19 22:41] LABS: Alanine Aminotransferase 31 U/L (6-35); Albumin Level 4.5 g/dL (3.5-5.1); Alkaline Phosphatase 98 U/L (38-126); Anion Gap 4 mmol/L (8-16); Aspartate Amino Transferase 30 U/L (14-36); Bilirubin,Total 0.7 mg/dL (0.2-1.3); Blood Urea Nitrogen 17 mg/dL (7-17); Calcium 9.5 mg/dL (8.4-10.2); Carbon Dioxide 34 mmol/L (22-30); Chloride 100 mmol/L (98-107); Estimated CRCL calculation 100 ml/min; Estimated Glomerular Filt Rate > 60; Glucose 222 mg/dL (65-110); Potassium 3.9 mmol/L (3.4-5.0); Sodium 138 mmol/L (137-145)
--- NOTE | 2022-09-19 22:46 | ED.SOB ---
HPI - SOB/Dyspnea General Chief Complaint: Shortness of Breath/Dyspnea Stated Complaint: forgot to take xarelto x3 days, feeling SOB Time Seen by Provider: 09/19/22 22:25 History of Present Illness HPI Narrative: Patient is a 67-year-old female with a history of DVT and PE, hypertension, diabetes, here due to multiple medical complaints. Patient states that she feels fatigued, somewhat short of breath, has had several areas of itching on her body and some nausea for the past 3 days. She saw her primary care doctor when she started to itch and he was unsure what this could be attributed to, there was no discernible rash or history of allergen exposure. Patient states that the itching has improved but she started to feel short of breath today. She also remembered that she has not taken her Xarelto her blood pressure medicines for the past 3 days because she was taking care of her sick dog. She is concerned about recurrence of PE. Related Data Home Medications Medication Instructions Recorded Confirmed amitriptyline 25 mg tablet 25 mg PO HS 01/06/20 07/19/22 exemestane 25 mg tablet 25 mg PO HS 01/06/20 07/19/22 insulin glargine 100 unit/mL (3 50 unit subcut QAM 01/06/20 07/19/22 mL) subcutaneous pen (Lantus Solostar U-100 Insulin) rivaroxaban 20 mg tablet (Xarelto) 20 mg PO DAILY 01/06/20 07/19/22 ropinirole 5 mg tablet 5 mg PO HS 01/06/20 07/19/22 oxybutynin chloride 5 mg tablet 10 mg PO BID 03/13/22 07/19/22 hydrocodone 7.5 mg-acetaminophen 1 tablet PO Q6H PRN Pain 03/19/22 07/19/22 325 mg tablet insulin lispro 100 unit/mL 22 unit subcut TID 03/19/22 07/19/22 subcutaneous pen (Humalog KwikPen (U-100) Insulin) hydrochlorothiazide 12.5 mg capsule 12.5 mg PO DAILY 07/19/22 07/19/22 methenamine hippurate 1 gram tablet 1 g PO BID 07/19/22 07/19/22 Allergies Allergy/AdvReac Type Severity Reaction Status Date / Time ceftriaxone Allergy Severe SOB Verified 08/13/22 02:09 cephalexin Allergy Severe Difficulty Verified 08/13/22 02:09 Breathing Cephalosporins Allergy Severe Difficulty Verified 08/13/22 02:09 Breathing lorazepam Allergy Severe Swelling Verified 08/13/22 02:09 metoclopramide Allergy Intermediate Other Verified 08/13/22 02:09 chlorhexidine Allergy Mild BLISTERING Verified 08/13/22 02:09 levofloxacin Allergy Mild Hives / Verified 08/13/22 02:09 Red Face ketorolac Allergy Itching Verified 08/13/22 02:09 latex Allergy Rash Verified 08/13/22 02:09 nitrofurantoin Allergy Itching Verified 08/13/22 02:09 sulfamethoxazole Allergy Itching Verified 08/13/22 02:09 [From Sulfamethoxazole-Trimethoprim] trazodone Allergy Swelling Verified 08/13/22 02:09 of Lip/Tongue/Throat trimethoprim Allergy Itching Verified 08/13/22 02:09 [From Sulfamethoxazole-Trimethoprim] oxycodone AdvReac Mild Vomiting Verified 08/13/22 02:09 amlodipine AdvReac Swelling Verified 08/13/22 02:09 lisinopril AdvReac Swelling Verified 08/13/22 02:09 meropenem AdvReac Rash Verified 08/13/22 02:09 pregabalin AdvReac Swelling Verified 08/13/22 02:09 reslizumab AdvReac Unknown Verified 08/13/22 02:09 Review of Systems Review of Systems: Gen.: Denies fevers or chills Eyes: Denies eye pain or visual change ENT: Denies congestion Respiratory: Reports shortness of breath CV: Denies chest pain or palpitations GI: Denies abdominal pain nausea, emesis or diarrhea denies burning, urgency, frequency or hematuria Musculoskeletal: Denies back pain or muscle pain Neuro: Denies numbness, tingling, weakness or focal weakness Skin: Denies rash Except as documented, all other systems reviewed and negative PMFSH Past Medical History Medical History Anxiety Breast cancer CHF (congestive heart failure) Chronic back pain Collagenous colitis COVID-19 Depression DM type 2 (diabetes mellitus, type 2) DVT (deep venous thrombosis) Hypothyroid IBS (irri
[2022-09-19 22:48] LABS: Lymphocytes Absolute Manual 3.28 K/mm3 (1.1-4.5); Monocytes Absolute Manual 0.54 K/mm3 (0.1-0.90); Monocytes Percent Manual 4 % (3-9); Neutrophils Percent Manual 72 % (46-73); Schistocytes None Seen (NORMAL); Total Cells Counted 100
[2022-09-19 22:49] VITALS: PULSE 83
[2022-09-19 22:49] LABS: Platelet Estimate Adequate (Adequate)
[2022-09-19 22:50] VITALS: BP 149/95; PULSE 82; RESP 16; TEMP 36.6; O2SAT 100
[2022-09-19] MEDS: ONDANSETRON HCL ODT 4 MG TABLET PO (22:58)
[2022-09-19 23:18] LABS: Lipase 143 U/L (23-300); Magnesium 1.9 mg/dL (1.6-2.3)
[2022-09-19 23:47] LABS: Influenza A QL RT-PCR Negative (Negative); Influenza B QL RT-PCR Negative (Negative); SARS-CoV-2 RNA PCR Negative (Negative)
[2022-09-20 00:06] VITALS: BP 124/76; PULSE 82; RESP 20; O2SAT 99
== END 2022-09-20 00:16 | disposition home or self-care (01) ==
PROVIDERS: Emergency Medicine; Emergency Provider Physician Assistant; PCP Internal Medicine
DX: J40 Bronchitis, not specified as acute or chronic (principal); Z20.822 Contact with and (suspected) exposure to COVID-19; I11.0 Hypertensive heart disease with heart failure; I50.9 Heart failure, unspecified; E11.9 Type 2 diabetes mellitus without complications; E03.9 Hypothyroidism, unspecified; G25.81 Restless legs syndrome; G47.33 Obstructive sleep apnea (adult) (pediatric); K58.9 Irritable bowel syndrome, unspecified; E66.01 Morbid (severe) obesity due to excess calories; Z68.43 Body mass index [BMI] 50.0-59.9, adult; Z96.651 Presence of right artificial knee joint; Z96.0 Presence of urogenital implants; Z96.82 Presence of neurostimulator; Z86.16 Personal history of COVID-19; Z86.718 Personal history of other venous thrombosis and embolism; Z86.711 Personal history of pulmonary embolism; Z87.440 Personal history of urinary (tract) infections; Z87.891 Personal history of nicotine dependence; Z87.442 Personal history of urinary calculi; Z90.13 Acquired absence of bilateral breasts and nipples; Z90.721 Acquired absence of ovaries, unilateral; Z90.49 Acquired absence of other specified parts of digestive tract; Z79.4 Long term (current) use of insulin; Z79.01 Long term (current) use of anticoagulants
CPT/HCPCS: 36415; 71046; 71275; 80053; 83690; 83735; 85025; 87636; 93005; 99284; A9270; Q9967

== ENCOUNTER 2022-09-21 09:25 | Emergency (ER) | payer MEDICARE, MEDICAID, SELFPAY ==
[2022-09-21] VITALS (16 sets, daily range): BP systolic 139–162; BP diastolic 83–98; PULSE 66–89; RESP 14–24; TEMP 36.1; O2SAT 97–100
--- NOTE | ~2022-09-21 | XR_ITS ---
EXAMINATION: XR chest 2V DATE: 09/21/2022 10:30 INDICATION: Shortness of breath. Left chest pain. TECHNIQUE: Frontal and lateral views of the chest were obtained. COMPARISON: Chest 2 views 09/19/2022, chest CT 09/19/2022 FINDINGS: The chest demonstrates clear lungs without pneumonia, pleural effusion, or pneumothorax. Th e heart size is normal. Epidural electrodes overlie thoracic spine. Surgical clips in the right upper quadrant are likely from cholecystectomy. IMPRESSION: 1. No acute cardiopulmonary disease. Reviewed, dictated and finalized at location A.
--- NOTE | 2022-09-21 09:33 | ECG_ITS ---
Measurements Intervals [place] Rate: 73 P: 0 DC: 136 QRS: -1 QRSD: 85 T: 30 QT: 395 QTc: 435 Interpretive Statements SINUS RHYTHM WITH SINUS ARRHYTHMIA BASELINE ARTIFACT- I, II, AVR NORMAL ECG COMPARED TO ECG 09/19/2022 22:21:46 SINUS ARRHYTHMIA NOW PRESENT Electronically Signed On 09-21-2022 12:09:15 CDT by Jonatan Parra D.O.
[2022-09-21 10:01] LABS: Basophils Percent Auto 0.3 % (0.2-1.2); Eosinophils Absolute Auto 0.2 K/mm3 (0-0.3); Eosinophils Percent Auto 2.1 % (0-4.4); Hematocrit 42.9 % (37.0-47.0); Hemoglobin 13.2 g/dL (12.0-15.0); Immature Granulocyte Absolute 0.04 K/mm3 (0.00-0.031); Immature Granulocyte Percent A 0.4 % (0-0.5); Lymphocytes Absolute Auto 2.26 K/mm3 (0.9-3.2); Lymphocytes Percent Auto 22.4 % (18.3-44.2); Mean Corpuscular HGB Conc 30.8 g/dl (32-36); Mean Corpuscular Hemoglobin 28.7 pg (26-34); Mean Corpuscular Volume 93.3 fl (80-100); Mean Platelet Volume 9.9 fl (7.4-10.4); Monocytes Absolute Auto 0.7 K/mm3 (0.1-0.6); Monocytes Percent Auto 6.8 % (2.6-8.5); Neutrophils Absolute Auto 6.9 K/mm3 (1.3-6.7); Platelet Count Result 315 k/mm3 (150-375); White Blood Count 10.1 K/mm3 (4.5-10.0)
[2022-09-21 10:11] LABS: Alanine Aminotransferase 29 U/L (6-35); Albumin Level 4.5 g/dL (3.5-5.1); Alkaline Phosphatase 89 U/L (38-126); Anion Gap 6 mmol/L (8-16); Aspartate Amino Transferase 30 U/L (14-36); Bilirubin,Total 0.6 mg/dL (0.2-1.3); Blood Urea Nitrogen 18 mg/dL (7-17); Calcium 9.2 mg/dL (8.4-10.2); Carbon Dioxide 32 mmol/L (22-30); Chloride 99 mmol/L (98-107); Estimated CRCL calculation 85 ml/min; Estimated Glomerular Filt Rate > 60; Glucose 226 mg/dL (65-110); Sodium 137 mmol/L (137-145)
[2022-09-21] MEDS: ALBUTEROL SULFATE NEB 2.5 MG/3 ML INH INHALATION (12:50)
--- NOTE | 2022-09-21 12:54 | PCRCNOTE ---
pt states she was seen a 'few days ago' and said she was diagnosed with bronchitis. pt states that she has been doing yard work and breathed in moldy compost when opening a compost bag.
--- NOTE | 2022-09-21 13:17 | ED.GENADULT ---
HPI - General Adult General Chief complaint: Shortness of Breath/Dyspnea Stated complaint: dyspnea - dx with bronchitis several days ago Time Seen by Provider: 09/21/22 11:57 History of Present Illness HPI narrative: 67-year-old female with recent diagnosis of bronchitis presenting to the emergency department for evaluation of persistent shortness of breath. Patient does have history of PE and DVT and does take Xarelto. Patient states that she had recently missed a few doses of her Xarelto when she presented for evaluation of shortness of breath. At that time patient did have a CT scan which showed no evidence of pulm embolism, aortic dissection or aortic aneurysm. Patient was treated for bronchitis. Patient states that she has been using her albuterol inhaler with some minor improvement. Related Data Home Medications Medication Instructions Recorded Confirmed amitriptyline 25 mg tablet 25 mg PO HS 01/06/20 07/19/22 exemestane 25 mg tablet 25 mg PO HS 01/06/20 07/19/22 insulin glargine 100 unit/mL (3 50 unit subcut QAM 01/06/20 07/19/22 mL) subcutaneous pen (Lantus Solostar U-100 Insulin) rivaroxaban 20 mg tablet (Xarelto) 20 mg PO DAILY 01/06/20 07/19/22 ropinirole 5 mg tablet 5 mg PO HS 01/06/20 07/19/22 oxybutynin chloride 5 mg tablet 10 mg PO BID 03/13/22 07/19/22 hydrocodone 7.5 mg-acetaminophen 1 tablet PO Q6H PRN Pain 03/19/22 07/19/22 325 mg tablet insulin lispro 100 unit/mL 22 unit subcut TID 03/19/22 07/19/22 subcutaneous pen (Humalog KwikPen (U-100) Insulin) hydrochlorothiazide 12.5 mg capsule 12.5 mg PO DAILY 07/19/22 07/19/22 methenamine hippurate 1 gram tablet 1 g PO BID 07/19/22 07/19/22 Allergies Allergy/AdvReac Type Severity Reaction Status Date / Time ceftriaxone Allergy Severe SOB Verified 09/21/22 11:32 cephalexin Allergy Severe Difficulty Verified 09/21/22 11:32 Breathing Cephalosporins Allergy Severe Difficulty Verified 09/21/22 11:32 Breathing lorazepam Allergy Severe Swelling Verified 09/21/22 11:32 metoclopramide Allergy Intermediate Other Verified 09/21/22 11:32 chlorhexidine Allergy Mild BLISTERING Verified 09/21/22 11:32 levofloxacin Allergy Mild Hives / Verified 09/21/22 11:32 Red Face ketorolac Allergy Itching Verified 09/21/22 11:32 latex Allergy Rash Verified 09/21/22 11:32 nitrofurantoin Allergy Itching Verified 09/21/22 11:32 sulfamethoxazole Allergy Itching Verified 09/21/22 11:32 [From Sulfamethoxazole-Trimethoprim] trazodone Allergy Swelling Verified 09/21/22 11:32 of Lip/Tongue/Throat trimethoprim Allergy Itching Verified 09/21/22 11:32 [From Sulfamethoxazole-Trimethoprim] oxycodone AdvReac Mild Vomiting Verified 09/21/22 11:32 amlodipine AdvReac Swelling Verified 09/21/22 11:32 lisinopril AdvReac Swelling Verified 09/21/22 11:32 meropenem AdvReac Rash Verified 09/21/22 11:32 pregabalin AdvReac Swelling Verified 09/21/22 11:32 reslizumab AdvReac Unknown Verified 09/21/22 11:32 Review of Systems Review of Systems: All systems reviewed & are unremarkable except as noted in HPI and below PMFSH Past Medical History Medical History Anxiety Breast cancer CHF (congestive heart failure) Chronic back pain Collagenous colitis COVID-19 Depression DM type 2 (diabetes mellitus, type 2) DVT (deep venous thrombosis) Hypothyroid IBS (irritable bowel syndrome) Kidney stone Morbid obesity Multiple thyroid nodules LUL on CPAP Peripheral neuropathy Pulmonary embolism positive for coagulation workup RLS (restless legs syndrome) 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) Surgical History Surgical History H/O hernia repair H/O mastectomy bilateral History of cardiac catheterization no CAD noted History of esophagogastroduodenoscopy (EGD) History of right oophorectomy History of total right knee replacement Hx of chol
== END 2022-09-21 14:35 | disposition home or self-care (01) ==
PROVIDERS: Emergency Medicine; Emergency Provider Emergency Medicine; PCP Internal Medicine
DX: J40 Bronchitis, not specified as acute or chronic (principal); I50.9 Heart failure, unspecified; E11.42 Type 2 diabetes mellitus with diabetic polyneuropathy; E03.9 Hypothyroidism, unspecified; K58.9 Irritable bowel syndrome, unspecified; E66.01 Morbid (severe) obesity due to excess calories; Z68.43 Body mass index [BMI] 50.0-59.9, adult; G47.33 Obstructive sleep apnea (adult) (pediatric); G25.81 Restless legs syndrome; Z96.651 Presence of right artificial knee joint; Z96.0 Presence of urogenital implants; Z96.82 Presence of neurostimulator; F32.A Depression, unspecified; Z86.16 Personal history of COVID-19; Z85.3 Personal history of malignant neoplasm of breast; Z86.718 Personal history of other venous thrombosis and embolism; Z86.711 Personal history of pulmonary embolism; Z87.440 Personal history of urinary (tract) infections; Z87.442 Personal history of urinary calculi; Z87.891 Personal history of nicotine dependence; Z79.01 Long term (current) use of anticoagulants; Z79.4 Long term (current) use of insulin; Z90.13 Acquired absence of bilateral breasts and nipples; Z90.721 Acquired absence of ovaries, unilateral; Z90.49 Acquired absence of other specified parts of digestive tract
CPT/HCPCS: 36415; 71046; 80053; 85025; 93005; 94640; 99284

== ENCOUNTER 2022-10-27 22:09 | Emergency (ER) | payer MEDICARE, MEDICAID, SELFPAY ==
[2022-10-27] VITALS (11 sets, daily range): BP systolic 122–141; BP diastolic 62–91; PULSE 79–110; RESP 14–24; O2SAT 93–99
--- NOTE | ~2022-10-27 | CT_ITS ---
Clinical Indication: Shortness of breath, abdominal pain CT Scan of the Chest, Abdomen, and Pelvis with Contrast: Technique: Contiguous sections were acquired throughout the chest, abdomen, and pelvis after intraven ous administration of 100 cc of Omnipaque 350. Dose reduction technique was used on this scan by uti bebetoing automated exposure control and iterative reconstruction technique. The dose-length product (DL P) was 2270.48 mGy-cm. COMPARISON: 09/19/2022 Findings: There is no evidence of any significant mediastinal, hilar or axillary lymphadenopathy. The mediastin al soft tissues appear normal. No pulmonary embolus. No aortic aneurysm or dissection. There is no evidence of pleural or pericardial effusion. Stable subcentimeter pulmonary nodules noted at the medial left lung base. No acute pulmonary abnorma lity seen. The liver, spleen, pancreas, adrenals and kidneys are within normal limits. Cholecystectomy clips not ed. No evidence of aortic aneurysm. No lymphadenopathy. No bowel obstruction or bowel wall thickening. There is no evidence to suggest acute appendicitis. Th ere is a prior presumed herniorrhaphy. Urinary bladder is unremarkable. No adnexal mass seen. No ascites. Impression: No acute abnormality seen. Stable subcentimeter pulmonary nodules at the left lung base. Postoperative changes, as above. Reviewed, dictated and finalized at location . Impression: No acute abnormality seen. Stable subcentimeter pulmonary nodules at the left lung base. Postoperative changes, as above.
--- NOTE | ~2022-10-27 | XR_ITS ---
Portable chest x-ray Comparison: 09/21/2022 Clinical History: Shortness of breath Findings: Lungs are clear, without focal consolidation or pleural effusion. Cardiomediastinal silho uette is stable. Intrathecal catheter is unchanged. Impression: Clear lungs. Stable intrathecal catheter. Reviewed, dictated and finalized at location . Impression: Clear lungs. Stable intrathecal catheter.
--- NOTE | 2022-10-27 22:17 | ECG_ITS ---
Measurements Intervals [place] Rate: 94 P: 37 ID: 126 QRS: 1 QRSD: 91 T: 44 QT: 352 QTc: 441 Interpretive Statements SINUS RHYTHM EARLY PRECORDIAL R/S TRANSITION BASELINE ARTIFACT- I, II, AVR BORDERLINE ECG COMPARED TO ECG 09/21/2022 09:40:16 NO SIGNIFICANT CHANGES Electronically Signed On 10-28-2022 6:44:37 CDT by Jonatan Parra D.O.
--- NOTE | 2022-10-27 22:33 | ED.GENADULT ---
HPI - General Adult General Chief complaint: Shortness of Breath/Dyspnea Stated complaint: sob Time Seen by Provider: 10/27/22 22:18 History of Present Illness HPI narrative: Patient 67-year-old female who presents the emergency department with chief complaint of shortness of breath. The patient reports that she started a new medication today and also has been on Ozempic recently. The patient states that she has been feeling nauseated and has been having abdominal pain with the Ozempic and also reports that today she started having swelling in her left leg. The patient reports that she is not having chest pain with this reports that she does have prior history of DVT and pulmonary embolism. The patient reports that given her history she decided to come to the emergency department for evaluation. The patient reports that she was concerned that this could be reaction to her new medication but denies urticaria does report that she feels as though her throat might be a little swelling but denies wheezing denies stridor and is able to complete full sentences. The patient also denies rash Related Data Home Medications Medication Instructions Recorded Confirmed amitriptyline 25 mg tablet 25 mg PO HS 01/06/20 07/19/22 exemestane 25 mg tablet 25 mg PO HS 01/06/20 07/19/22 insulin glargine 100 unit/mL (3 50 unit subcut QAM 01/06/20 07/19/22 mL) subcutaneous pen (Lantus Solostar U-100 Insulin) rivaroxaban 20 mg tablet (Xarelto) 20 mg PO DAILY 01/06/20 07/19/22 ropinirole 5 mg tablet 5 mg PO HS 01/06/20 07/19/22 oxybutynin chloride 5 mg tablet 10 mg PO BID 03/13/22 07/19/22 hydrocodone 7.5 mg-acetaminophen 1 tablet PO Q6H PRN Pain 03/19/22 07/19/22 325 mg tablet insulin lispro 100 unit/mL 22 unit subcut TID 03/19/22 07/19/22 subcutaneous pen (Humalog KwikPen (U-100) Insulin) hydrochlorothiazide 12.5 mg capsule 12.5 mg PO DAILY 07/19/22 07/19/22 methenamine hippurate 1 gram tablet 1 g PO BID 07/19/22 07/19/22 Allergies Allergy/AdvReac Type Severity Reaction Status Date / Time ceftriaxone Allergy Severe SOB Verified 10/27/22 22:24 cephalexin Allergy Severe Difficulty Verified 10/27/22 22:24 Breathing Cephalosporins Allergy Severe Difficulty Verified 10/27/22 22:24 Breathing lorazepam Allergy Severe Swelling Verified 10/27/22 22:24 metoclopramide Allergy Intermediate Other Verified 10/27/22 22:24 chlorhexidine Allergy Mild BLISTERING Verified 10/27/22 22:24 levofloxacin Allergy Mild Hives / Verified 10/27/22 22:24 Red Face ketorolac Allergy Itching Verified 10/27/22 22:24 latex Allergy Rash Verified 10/27/22 22:24 nitrofurantoin Allergy Itching Verified 10/27/22 22:24 sulfamethoxazole Allergy Itching Verified 10/27/22 22:24 [From Sulfamethoxazole-Trimethoprim] trazodone Allergy Swelling Verified 10/27/22 22:24 of Lip/Tongue/Throat trimethoprim Allergy Itching Verified 10/27/22 22:24 [From Sulfamethoxazole-Trimethoprim] oxycodone AdvReac Mild Vomiting Verified 10/27/22 22:24 amlodipine AdvReac Swelling Verified 10/27/22 22:24 lisinopril AdvReac Swelling Verified 10/27/22 22:24 meropenem AdvReac Rash Verified 10/27/22 22:24 pregabalin AdvReac Swelling Verified 10/27/22 22:24 reslizumab AdvReac Unknown Verified 10/27/22 22:24 Review of Systems Review of Systems: A 10 system review of systems was completed on the patient and is negative except for what is stated in the HPI. Nursing and ancillary documentation was reviewed. [facility] Past Medical History Medical History Anxiety Breast cancer CHF (congestive heart failure) Chronic back pain Collagenous colitis COVID-19 Depression DM type 2 (diabetes mellitus, type 2) DVT (deep venous thrombosis) Hypothyroid IBS (irritable bowel syndrome) Kidney stone Morbid obesity Multiple thyroid nodules LUL on CPAP Peripheral neuropathy Pulmonary embolism posit
[2022-10-27] MEDS: MORPHINE SULFATE (*CRX) 4 MG/ML INJ IV PUSH (22:35)
[2022-10-27 22:55] LABS: Alanine Aminotransferase 26 U/L (6-35); Albumin Level 4.2 g/dL (3.5-5.1); Alkaline Phosphatase 73 U/L (38-126); Anion Gap 8 mmol/L (8-16); Aspartate Amino Transferase 27 U/L (14-36); Bilirubin,Total 0.5 mg/dL (0.2-1.3); Blood Urea Nitrogen 20 mg/dL (7-17); Calcium 9.6 mg/dL (8.4-10.2); Carbon Dioxide 30 mmol/L (22-30); Chloride 102 mmol/L (98-107); Estimated CRCL calculation 88 ml/min; Estimated Glomerular Filt Rate > 60; Glucose 185 mg/dL (65-110); Potassium 3.9 mmol/L (3.4-5.0); Sodium 140 mmol/L (137-145)
[2022-10-27 23:01] LABS: Basophils Absolute Auto 0.1 K/mm3 (0.0-0.1); Basophils Percent Auto 0.4 % (0.2-1.2); Eosinophils Absolute Auto 0.4 K/mm3 (0-0.3); Eosinophils Percent Auto 3.5 % (0-4.4); Hematocrit 42.7 % (37.0-47.0); Hemoglobin 13.5 g/dL (12.0-15.0); Immature Granulocyte Absolute 0.06 K/mm3 (0.00-0.031); Immature Granulocyte Percent A 0.5 % (0-0.5); Lymphocytes Absolute Auto 3.11 K/mm3 (0.9-3.2); Lymphocytes Percent Auto 27.2 % (18.3-44.2); Mean Corpuscular HGB Conc 31.6 g/dl (32-36); Mean Corpuscular Hemoglobin 29.3 pg (26-34); Mean Corpuscular Volume 92.8 fl (80-100); Monocytes Absolute Auto 0.8 K/mm3 (0.1-0.6); Monocytes Percent Auto 6.9 % (2.6-8.5); Neutrophils Percent Auto 61.5 % (45.5-73.1); Platelet Count Result 323 k/mm3 (150-375); Red Cell Distribution Width 14.3 % (11.5-14.5); White Blood Count 11.5 K/mm3 (4.5-10.0)
[2022-10-27 23:13] LABS: Creatine Kinase 146 U/L (30-135); Magnesium 1.7 mg/dL (1.6-2.3)
[2022-10-27 23:15] LABS: Lactic Acid Reflex 1.5 mmol/L (0.7-2.0)
[2022-10-27 23:20] LABS: Prothrombin Time 23.6 Seconds (11.1-14.7)
[2022-10-27 23:26] LABS: NT Pro B Type Natriuretic Pept 89 pg/mL (19.9-100); Troponin I < 0.012 ng/mL (0.000-0.034)
[2022-10-27 23:58] LABS: Procalcitonin 0.1 ng/mL
[2022-10-28 00:15] VITALS: PULSE 90; RESP 13; O2SAT 99
[2022-10-28 01:28] VITALS: PULSE 96; RESP 14; O2SAT 96
[2022-10-28 01:29] VITALS: BP 136/82; PULSE 86; RESP 15; O2SAT 100
[2022-10-28 02:03] LABS: Troponin I < 0.012 ng/mL (0.000-0.034)
[2022-10-28] MEDS: MORPHINE SULFATE (*CRX) 4 MG/ML INJ IV PUSH (02:14)
[2022-10-28 03:48] VITALS: BP 132/72; PULSE 86; RESP 15; O2SAT 99
== END 2022-10-28 03:49 | disposition home or self-care (01) ==
PROVIDERS: Emergency Provider Emergency Medicine; PCP Internal Medicine
DX: R06.00 Dyspnea, unspecified (principal); R10.9 Unspecified abdominal pain; R60.0 Localized edema; I50.9 Heart failure, unspecified; E11.9 Type 2 diabetes mellitus without complications; E03.9 Hypothyroidism, unspecified; Z85.3 Personal history of malignant neoplasm of breast; Z86.718 Personal history of other venous thrombosis and embolism; Z87.891 Personal history of nicotine dependence
CPT/HCPCS: 36415; 71045; 71275; 74177; 80053; 82550; 83605; 83735; 83880; 84145; 84484; 85025; 85610; 85730; 93005; 96374; 96376; 99284; J2270; Q9967

== ENCOUNTER 2022-11-01 01:07 | Observation (INO) | payer MEDICARE, MEDICAID, SELFPAY ==
[2022-11-01] VITALS (15 sets, daily range): BP systolic 120–154; BP diastolic 64–94; PULSE 77–94; RESP 14–22; TEMP 36.3–36.9; O2SAT 95–100; BMI 53.8
--- NOTE | ~2022-11-01 | XR_ITS ---
Clinical Indication: Shortness of breath PA and lateral views of the chest: Comparison: 10/27/2022 Findings: The lungs are clear, without evidence of focal consolidation or pleural effusion. Cardiome diastinal silhouette is within normal limits. Bones and soft tissues are unremarkable. Impression: Normal chest. Reviewed, dictated and finalized at location . Impression: Normal chest.
--- NOTE | 2022-11-01 01:18 | ECG_ITS ---
Measurements Intervals [place] Rate: 89 P: 11 ID: 133 QRS: -3 QRSD: 90 T: 51 QT: 364 QTc: 444 Interpretive Statements SINUS RHYTHM EARLY PRECORDIAL R/S TRANSITION BORDERLINE ECG COMPARED TO ECG 10/27/2022 22:18:40 NO SIGNIFICANT CHANGES Electronically Signed On 11-01-2022 6:55:59 CDT by Jonatan Parra D.O.
[2022-11-01 01:32] LABS: Basophils Absolute Auto 0.1 K/mm3 (0.0-0.1); Basophils Percent Auto 0.4 % (0.2-1.2); Eosinophils Absolute Auto 0.3 K/mm3 (0-0.3); Eosinophils Percent Auto 2.7 % (0-4.4); Hematocrit 41.3 % (37.0-47.0); Immature Granulocyte Absolute 0.08 K/mm3 (0.00-0.031); Immature Granulocyte Percent A 0.6 % (0-0.5); Lymphocytes Absolute Auto 3.04 K/mm3 (0.9-3.2); Lymphocytes Percent Auto 24.3 % (18.3-44.2); Mean Corpuscular HGB Conc 31.5 g/dl (32-36); Mean Corpuscular Hemoglobin 28.8 pg (26-34); Mean Corpuscular Volume 91.4 fl (80-100); Mean Platelet Volume 9.6 fl (7.4-10.4); Monocytes Absolute Auto 0.8 K/mm3 (0.1-0.6); Monocytes Percent Auto 6.7 % (2.6-8.5); Neutrophils Absolute Auto 8.2 K/mm3 (1.3-6.7); Neutrophils Percent Auto 65.3 % (45.5-73.1); Platelet Count Result 301 k/mm3 (150-375); Red Blood Count 4.52 M/mm3 (4.2-5.4); Red Cell Distribution Width 14.2 % (11.5-14.5); White Blood Count 12.5 K/mm3 (4.5-10.0)
[2022-11-01 01:42] LABS: Alanine Aminotransferase 26 U/L (6-35); Alkaline Phosphatase 70 U/L (38-126); Anion Gap 2 mmol/L (8-16); Aspartate Amino Transferase 30 U/L (14-36); Bilirubin,Total 0.7 mg/dL (0.2-1.3); Blood Urea Nitrogen 13 mg/dL (7-17); Calcium 9.3 mg/dL (8.4-10.2); Carbon Dioxide 29 mmol/L (22-30); Chloride 101 mmol/L (98-107); Estimated CRCL calculation 99 ml/min; Estimated Glomerular Filt Rate > 60; Glucose 226 mg/dL (65-110); Potassium 4.2 mmol/L (3.4-5.0); Sodium 132 mmol/L (137-145)
[2022-11-01] MEDS: SODIUM CHLORIDE 0.9% IV 500 ML 999 ML IV CONT (01:53)
[2022-11-01 02:06] LABS: Influenza A QL RT-PCR Negative (Negative); Influenza B QL RT-PCR Negative (Negative); SARS-CoV-2 RNA PCR Negative (Negative)
[2022-11-01 02:28] LABS: NT Pro B Type Natriuretic Pept 49 pg/mL (19.9-100); Troponin I < 0.012 ng/mL (0.000-0.034)
[2022-11-01 03:00] LABS: Creatine Kinase 117 U/L (30-135)
--- NOTE | 2022-11-01 03:03 | ED.GENADULT ---
HPI - General Adult General Chief complaint: Shortness of Breath/Dyspnea Stated complaint: sob,body aches Time Seen by Provider: 11/01/22 01:34 History of Present Illness HPI narrative: Patient is a 67-year-old female that presents the emergency department with chief complaint of shortness of breath generalized body aches chest discomfort. Patient has prior history of pulmonary emboli is on daily Xarelto and reports no missing of any medications. Patient reports she recently started on Ozempic and a new blood pressure medicine and since then she has been having generalized aches in her muscles and reports that she has been getting more short of breath the patient was seen several days ago in the emergency department had a CT scan of her chest abdomen pelvis and had no evidence of pulmonary emboli at that time. Patient reports she is continue to have symptoms and is not having any improvement. Related Data Home Medications Medication Instructions Recorded Confirmed amitriptyline 25 mg tablet 25 mg PO HS 01/06/20 07/19/22 exemestane 25 mg tablet 25 mg PO HS 01/06/20 07/19/22 insulin glargine 100 unit/mL (3 50 unit subcut QAM 01/06/20 07/19/22 mL) subcutaneous pen (Lantus Solostar U-100 Insulin) rivaroxaban 20 mg tablet (Xarelto) 20 mg PO DAILY 01/06/20 07/19/22 ropinirole 5 mg tablet 5 mg PO HS 01/06/20 07/19/22 oxybutynin chloride 5 mg tablet 10 mg PO BID 03/13/22 07/19/22 hydrocodone 7.5 mg-acetaminophen 1 tablet PO Q6H PRN Pain 03/19/22 07/19/22 325 mg tablet insulin lispro 100 unit/mL 22 unit subcut TID 03/19/22 07/19/22 subcutaneous pen (Humalog KwikPen (U-100) Insulin) hydrochlorothiazide 12.5 mg capsule 12.5 mg PO DAILY 07/19/22 07/19/22 methenamine hippurate 1 gram tablet 1 g PO BID 07/19/22 07/19/22 Allergies Allergy/AdvReac Type Severity Reaction Status Date / Time ceftriaxone Allergy Severe SOB Verified 11/01/22 01:31 cephalexin Allergy Severe Difficulty Verified 11/01/22 01:31 Breathing Cephalosporins Allergy Severe Difficulty Verified 11/01/22 01:31 Breathing lorazepam Allergy Severe Swelling Verified 11/01/22 01:31 metoclopramide Allergy Intermediate Other Verified 11/01/22 01:31 chlorhexidine Allergy Mild BLISTERING Verified 11/01/22 01:31 levofloxacin Allergy Mild Hives / Verified 11/01/22 01:31 Red Face ketorolac Allergy Itching Verified 11/01/22 01:31 latex Allergy Rash Verified 11/01/22 01:31 nitrofurantoin Allergy Itching Verified 11/01/22 01:31 sulfamethoxazole Allergy Itching Verified 11/01/22 01:31 [From Sulfamethoxazole-Trimethoprim] trazodone Allergy Swelling Verified 11/01/22 01:31 of Lip/Tongue/Throat trimethoprim Allergy Itching Verified 11/01/22 01:31 [From Sulfamethoxazole-Trimethoprim] oxycodone AdvReac Mild Vomiting Verified 11/01/22 01:31 amlodipine AdvReac Swelling Verified 11/01/22 01:31 lisinopril AdvReac Swelling Verified 11/01/22 01:31 meropenem AdvReac Rash Verified 11/01/22 01:31 pregabalin AdvReac Swelling Verified 11/01/22 01:31 reslizumab AdvReac Unknown Verified 11/01/22 01:31 Review of Systems Review of Systems: A 10 system review of systems was completed on the patient and is negative except for what is stated in the HPI. Nursing and ancillary documentation was reviewed. [facility] Past Medical History Medical History Anxiety Breast cancer CHF (congestive heart failure) Chronic back pain Collagenous colitis COVID-19 Depression DM type 2 (diabetes mellitus, type 2) DVT (deep venous thrombosis) Hypothyroid IBS (irritable bowel syndrome) Kidney stone Morbid obesity Multiple thyroid nodules LUL on CPAP Peripheral neuropathy Pulmonary embolism positive for coagulation workup RLS (restless legs syndrome) 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) Surgical History Surgical History H/O herni
[2022-11-01 04:48] LABS: Troponin I < 0.012 ng/mL (0.000-0.034)
--- NOTE | 2022-11-01 07:27 | ADMGEN ---
This patient, Karly Marques, was admitted to [facility] Surg Room 311-01. Patient/family oriented to hospital policies and general routines including ID bracelet, bed and alarms, visiting hours, pain management, procedures, bathroom and other care routines, personal items, smoking policy, room service/diet, and visiting hours. Information on how to activate the Rapid Response Team has been discussed. Patient/Family are encouraged to report perceived risks to care and to ask questions if they do not understand what they are told or what they should do.
[2022-11-01 07:45] LABS: Basophils Percent Auto 0.4 % (0.2-1.2); Eosinophils Absolute Auto 0.4 K/mm3 (0-0.3); Eosinophils Percent Auto 3.1 % (0-4.4); Hematocrit 41.2 % (37.0-47.0); Hemoglobin 12.7 g/dL (12.0-15.0); Immature Granulocyte Absolute 0.03 K/mm3 (0.00-0.031); Immature Granulocyte Percent A 0.3 % (0-0.5); Lymphocytes Absolute Auto 2.84 K/mm3 (0.9-3.2); Lymphocytes Percent Auto 25.5 % (18.3-44.2); Mean Corpuscular HGB Conc 30.8 g/dl (32-36); Mean Corpuscular Hemoglobin 28.2 pg (26-34); Mean Corpuscular Volume 91.4 fl (80-100); Mean Platelet Volume 9.8 fl (7.4-10.4); Monocytes Absolute Auto 0.8 K/mm3 (0.1-0.6); Monocytes Percent Auto 7.3 % (2.6-8.5); Neutrophils Absolute Auto 7.1 K/mm3 (1.3-6.7); Neutrophils Percent Auto 63.4 % (45.5-73.1); Platelet Count Result 288 k/mm3 (150-375); Red Blood Count 4.51 M/mm3 (4.2-5.4); White Blood Count 11.1 K/mm3 (4.5-10.0)
[2022-11-01 08:49] LABS: Glucose Point of Care 176 mg/dl (65-105)
[2022-11-01] MEDS: MORPHINE SULFATE (*CRX) 2 MG/ML INJ 1 MG IV PUSH (08:59)
[2022-11-01] MEDS: INSULIN GLARGINE (*BKC) 100 UNITS/ML 50 UNITS SUB-Q (09:02)
[2022-11-01] MEDS: INSULIN ASPART (*BKC) 100 UNITS/ML 22 UNITS SUB-Q ×3 (09:06→18:12)
[2022-11-01] MEDS: IPRATROPIUM BR 0.02% INH SOLN 0.5 MG/2.5 ML VIAL INHALATION ×3 (09:17→20:08)
[2022-11-01] MEDS: ALBUTEROL SULFATE NEB 2.5 MG/3 ML INH INHALATION ×3 (09:17→20:08)
[2022-11-01 09:51] LABS: Alanine Aminotransferase 25 U/L (6-35); Albumin Level 3.9 g/dL (3.5-5.1); Alkaline Phosphatase 75 U/L (38-126); Anion Gap 4 mmol/L (8-16); Aspartate Amino Transferase 28 U/L (14-36); Bilirubin,Total 0.7 mg/dL (0.2-1.3); Blood Urea Nitrogen 10 mg/dL (7-17); Calcium 8.9 mg/dL (8.4-10.2); Carbon Dioxide 27 mmol/L (22-30); Chloride 104 mmol/L (98-107); Estimated CRCL calculation 117 ml/min; Estimated Glomerular Filt Rate > 60; Glucose 181 mg/dL (65-110); Potassium 4.5 mmol/L (3.4-5.0); Sodium 135 mmol/L (137-145)
[2022-11-01 11:18] LABS: Glucose Point of Care 171 mg/dl (65-105)
[2022-11-01] MEDS: HYDROcodone/acetaminophen (*CRX) 7.5-325 MG TABLET 1 TAB PO (12:22)
[2022-11-01] MEDS: oxyBUTYnin CHLORIDE 5 MG TABLET 15 MG PO (12:24)
[2022-11-01] MEDS: WATER FOR IRRIGATION, STERILE 1,000 ML BOTTLE 1000 ML (12:25)
--- NOTE | 2022-11-01 12:40 | PC.NURSE ---
Pt was new to floor; she was not eating much breakfast. MD and RN only dosed 11u (half) of her novolog for breakfast.
--- NOTE | 2022-11-01 14:52 | PM.IMHP ---
H&P: HPI History of Present Illness Date/Time: 11/01/22 14:52 Chief Complaint: Diffuse body aches, shortness of breath Narrative: This is a 67-year-old female with a past medical history of diabetes, chronic pain, peripheral neuropathy, history of DVT and PE, hypothyroidism, and history of breast cancer the presented to the ED on 11/01/2022 with chief complaint of shortness of breath and generalized body aches. She had been recently started on Ozempic and losartan within the past month and is in feels as if her symptoms are related to this medication. She it has an allergy to many many medications. Id was in bank and losartan put on hold and she is given p.r.n. Benadryl for ongoing symptoms. She states that she has had diffuse body aches this started approximately 3 days ago and with each passing day her pain got worse. She does have [place] that she takes every 6 hours at home that was not helping any of her pain. She describes muscle tenderness, pain with walking, joint tenderness and feeling off balance. She is not sure if she feels off-balance due to pain or something else. Her pain also cause her to have shortness of breath. CT chest abdomen pelvis revealed no evidence of PE. She was not hypoxic on arrival and did not require any supplemental oxygen. No tachycardia noted. She does take anticoagulant due to history of PE so she has low risk for this. Chest x-ray no evidence of acute cardiopulmonary process. Labs revealed slight elevated white count of 12.5. Normal troponin, normal BNP and normal CK. EKG revealing sinus rhythm. On evaluation she did have a very small area of red petechiae a on her chest that she states she did not know was there. She admits pruritus for about 1 week. Patient started on analgesics as needed as well as p.r.n. Benadry. Will hold losartan and Ozempic at this time. Review of Systems Review of Systems: All systems reviewed & are unremarkable except as noted in HPI and below PMFSH Past Medical History Medical History Anxiety Breast cancer CHF (congestive heart failure) Chronic back pain Collagenous colitis COVID-19 Depression DM type 2 (diabetes mellitus, type 2) DVT (deep venous thrombosis) Hypothyroid IBS (irritable bowel syndrome) Kidney stone Morbid obesity Multiple thyroid nodules LUL on CPAP Peripheral neuropathy Pulmonary embolism positive for coagulation workup RLS (restless legs syndrome) 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) Surgical History Surgical History H/O hernia repair H/O mastectomy bilateral History of cardiac catheterization no CAD noted History of esophagogastroduodenoscopy (EGD) History of right oophorectomy History of total right knee replacement Hx of cholecystectomy Hx of colonoscopy S/P insertion of spinal cord stimulator S/P ureteral stent placement Family History Family History Mother Diabetes mellitus Acute myocardial infarction Cerebrovascular accident Hypertension Congestive heart failure Father Prostate carcinoma Sibling Breast cancer Acute myocardial infarction Chronic obstructive pulmonary disease Social History Social History Social History: Patient lives at home with daughter, Yunior, whom she designates as her surrogate MDM. Her PCP is Dr. Gale. She is thus former smoker. She is and disabled Code status Full Code Smoking packs per day: 0 Smoking cigarettes per day: 0.0 Years smoked: 2 Smoking pack-years: 0.00 Smoking status: Former smoker Tobacco type: cigarettes Second hand tobacco smoke exposure: Yes Additional smoking assessment comments: SMOKED FOR 3 YEARS Alcohol intake: never Substance use: never Substance use type: does not use Lack of Transportation: No Lack o
[2022-11-01 16:27] LABS: Glucose Point of Care 141 mg/dl (65-105)
[2022-11-01] MEDS: HYDROmorphone HCL INJ (*CRX) 1 MG/ML SYR 0.5 MG IV PUSH ×2 (17:34→21:37)
[2022-11-01] MEDS: RIVAROXABAN 20 MG TABLET PO (18:14)
[2022-11-01] MEDS: rOPINIRole HCL 1 MG TABLET 5 MG PO (21:00)
[2022-11-01] MEDS: AMITRIPTYLINE HCL 25 MG TABLET PO (21:00)
[2022-11-01 21:20] LABS: Glucose Point of Care 180 mg/dl (65-105)
[2022-11-02] VITALS (21 sets, daily range): BP systolic 135–142; BP diastolic 61–89; PULSE 73–90; RESP 17–20; TEMP 36.4–37; O2SAT 94–99
[2022-11-02] MEDS: ALBUTEROL SULFATE NEB 2.5 MG/3 ML INH INHALATION ×4 (01:59→20:54)
[2022-11-02] MEDS: IPRATROPIUM BR 0.02% INH SOLN 0.5 MG/2.5 ML VIAL INHALATION ×4 (01:59→20:54)
[2022-11-02] MEDS: HYDROmorphone HCL INJ (*CRX) 1 MG/ML SYR 0.5 MG IV PUSH ×5 (02:09→21:40)
[2022-11-02] MEDS: diphenhydrAMINE HCl CAP 25 MG CAPSULE PO (04:02)
[2022-11-02 06:38] LABS: Alanine Aminotransferase 24 U/L (6-35); Albumin Level 3.6 g/dL (3.5-5.1); Alkaline Phosphatase 67 U/L (38-126); Anion Gap 3 mmol/L (8-16); Aspartate Amino Transferase 25 U/L (14-36); Bilirubin,Total 0.7 mg/dL (0.2-1.3); Blood Urea Nitrogen 12 mg/dL (7-17); Carbon Dioxide 28 mmol/L (22-30); Chloride 102 mmol/L (98-107); Estimated CRCL calculation 99 ml/min; Estimated Glomerular Filt Rate > 60; Glucose 163 mg/dL (65-110); Sodium 133 mmol/L (137-145)
[2022-11-02 06:53] LABS: Hematocrit 40.8 % (37.0-47.0); Hemoglobin 12.6 g/dL (12.0-15.0); Mean Corpuscular HGB Conc 30.9 g/dl (32-36); Mean Corpuscular Hemoglobin 28.4 pg (26-34); Mean Corpuscular Volume 92.1 fl (80-100); Mean Platelet Volume 9.9 fl (7.4-10.4); Platelet Count Result 274 k/mm3 (150-375); Red Blood Count 4.43 M/mm3 (4.2-5.4); Red Cell Distribution Width 14.2 % (11.5-14.5); White Blood Count 9.1 K/mm3 (4.5-10.0)
[2022-11-02 08:19] LABS: Glucose Point of Care 161 mg/dl (65-105)
[2022-11-02] MEDS: oxyBUTYnin CHLORIDE 5 MG TABLET 15 MG PO (08:21)
[2022-11-02] MEDS: INSULIN GLARGINE (*BKC) 100 UNITS/ML 50 UNITS SUB-Q (08:22)
--- NOTE | 2022-11-02 10:58 | PM.IMPN ---
Progress Note: A&P Assessment and Plan (1) Diffuse arthralgia: Code(s): M25.50 - Pain in unspecified joint Status: Acute Assessment and Plan: Hold Ozempic and losartan at this time Analgesics as needed. Benadryl p.r.n. for pruritus CTA chest abdomen pelvis revealed no acute abnormality. (2) Dyspnea: Qualifiers: Dyspnea type: unspecified Qualified Code(s): R06.00 - Dyspnea, unspecified Code(s): R06.00 - Dyspnea, unspecified Status: Inactive Assessment and Plan: CTA chest abdomen pelvis within normal limits. Chest x-ray no acute cardiopulmonary process. Patient does not require oxygen supplementation at this time. CK, BNP and troponin all within normal limits. DuoNebs p.r.n.. (3) DM type 2 (diabetes mellitus, type 2): Code(s): E11.9 - Type 2 diabetes mellitus without complications Status: Acute Assessment and Plan: Insulin Lispro sliding scale, Accu-checks qAc and HS and Hold oral hypoglycemics Initiate hypoglycemic precautions Subjective Date/time seen: 11/02/22 10:58 Interval history: No complaints Exam Narrative: GENERAL: Comfortable, no acute distress, morbidly obese HENMT: moist mucous membranes EYES: EOM intact b/l NECK: no lymphadenopathy RESPIRATORY: Distant breath sounds CARDIO/CHEST: RRR, petechiae rash over chest that is nonblanching GI: soft, nontender, bowel sounds present SKIN: no rashes EXTREMITIES: no edema, redness or tenderness Objective Data Vital Signs Vital Signs: Vital Signs - 24 hr 11/01/22 14:00 11/01/22 13:51 11/01/22 13:51 Temperature 98.5 F Pulse Rate 82 81 Respiratory Rate 20 22 H Blood Pressure 150/84 H Pulse Oximetry 98 96 Oxygen Delivery Room Air 11/01/22 14:04 11/01/22 16:00 11/01/22 20:08 Temperature Pulse Rate 79 93 77 Respiratory Rate 22 H 18 Blood Pressure Pulse Oximetry Oxygen Delivery 11/01/22 20:18 11/01/22 21:38 11/01/22 20:00 Temperature 98.0 F Pulse Rate 84 83 94 Respiratory Rate 18 22 H Blood Pressure 141/76 H Pulse Oximetry 98 Oxygen Delivery 11/01/22 20:00 11/02/22 00:00 11/02/22 01:59 Temperature Pulse Rate 83 78 76 Respiratory Rate 22 H 18 Blood Pressure Pulse Oximetry 98 Oxygen Delivery Room Air 11/02/22 02:10 11/02/22 04:00 11/02/22 06:00 Temperature 98.6 F Pulse Rate 79 84 73 Respiratory Rate 18 20 Blood Pressure 140/89 Pulse Oximetry 99 Oxygen Delivery 11/02/22 09:18 11/02/22 09:22 11/02/22 09:32 Temperature Pulse Rate 78 83 Respiratory Rate 18 18 Blood Pressure Pulse Oximetry 97 Oxygen Delivery Room Air 11/02/22 08:00 Temperature Pulse Rate 82 Respiratory Rate Blood Pressure Pulse Oximetry Oxygen Delivery Intake/Output Intake/Output: Intake & Output 10/30/22 10/31/22 11/01/22 11/02/22 23:59 23:59 23:59 23:59 Intake Total 1526 810 Output Total 1800 700 Balance -274 110 Meds/Results Medications: Active Medications Generic Name Dose Route Start Last Admin Trade Name Freq PRN Reason Stop Dose Admin Hydrocodone Bitart/Acetaminophen 1 tab 11/01/22 08:17 11/01/22 12:22 Hydrocodone/Acetaminophen (*Crx) 7.5-325 Mg Tablet PO 1 tab Q6H PRN Administration Pain 4-6 Albuterol 2.5 mg 11/01/22 08:00 11/02/22 09:21 Albuterol Sulfate Neb 2.5 Mg/3 Ml Inh INHALATION 2.5 mg Q6HRT RODERICK Administration Albuterol 1 puff 11/01/22 08:17 Albuterol Sulfate (*Sp) Aerosol 1 Puff INHALATION QIDRT PRN shortness of breath or wheezing Amitriptyline HCl 25 mg 11/01/22 21:00 11/01/22 21:00 Amitriptyline Hcl 25 Mg Tablet PO 25 mg HS RODERICK Administration Diphenhydramine HCl 25 mg 11/01/22 15:11 11/02/22 04:02 Diphenhydramine Hcl Cap 25 Mg Capsule PO 25 mg Q6H PRN Administration Itching Hydromorphone HCl 0.5 mg 11/01/22 15:09 11/02/22 08:15 Hydromorphone Hcl Inj (*Crx) 1 Mg/Ml S
[2022-11-02 11:54] LABS: Glucose Point of Care 200 mg/dl (65-105)
[2022-11-02] MEDS: INSULIN ASPART (*BKC) 100 UNITS/ML 22 UNITS SUB-Q ×2 (12:12→17:25)
[2022-11-02 17:04] LABS: Glucose Point of Care 173 mg/dl (65-105)
[2022-11-02] MEDS: RIVAROXABAN 20 MG TABLET PO (17:24)
[2022-11-02] MEDS: rOPINIRole HCL 1 MG TABLET 5 MG PO (20:26)
[2022-11-02] MEDS: AMITRIPTYLINE HCL 25 MG TABLET PO (20:26)
[2022-11-02 21:27] LABS: Glucose Point of Care 168 mg/dl (65-105)
[2022-11-02] MEDS: HYDROcodone/acetaminophen (*CRX) 7.5-325 MG TABLET 1 TAB PO (21:40)
[2022-11-03] VITALS (18 sets, daily range): BP systolic 113–134; BP diastolic 61–74; PULSE 75–96; RESP 16–18; TEMP 35.6–36.7; O2SAT 95–98
[2022-11-03] MEDS: ALBUTEROL SULFATE NEB 2.5 MG/3 ML INH INHALATION ×4 (01:56→19:41)
[2022-11-03] MEDS: IPRATROPIUM BR 0.02% INH SOLN 0.5 MG/2.5 ML VIAL INHALATION ×4 (01:56→19:41)
[2022-11-03] MEDS: HYDROmorphone HCL INJ (*CRX) 1 MG/ML SYR 0.5 MG IV PUSH ×5 (01:58→23:08)
[2022-11-03 07:40] LABS: Glucose Point of Care 155 mg/dl (65-105)
[2022-11-03] MEDS: oxyBUTYnin CHLORIDE 5 MG TABLET 15 MG PO (09:02)
[2022-11-03] MEDS: INSULIN GLARGINE (*BKC) 100 UNITS/ML 50 UNITS SUB-Q (09:02)
[2022-11-03] MEDS: INSULIN ASPART (*BKC) 100 UNITS/ML 22 UNITS SUB-Q ×3 (09:03→17:07)
--- NOTE | 2022-11-03 11:21 | PM.IMPN ---
Progress Note: A&P Assessment and Plan (1) Diffuse arthralgia: Code(s): M25.50 - Pain in unspecified joint Status: Acute Assessment and Plan: Hold Ozempic and losartan at this time Analgesics as needed. Benadryl p.r.n. for pruritus CTA chest abdomen pelvis revealed no acute abnormality. (2) Dyspnea: Qualifiers: Dyspnea type: unspecified Qualified Code(s): R06.00 - Dyspnea, unspecified Code(s): R06.00 - Dyspnea, unspecified Status: Inactive Assessment and Plan: CTA chest abdomen pelvis within normal limits. Chest x-ray no acute cardiopulmonary process. Patient does not require oxygen supplementation at this time. CK, BNP and troponin all within normal limits. DuoNebs p.r.n.. (3) DM type 2 (diabetes mellitus, type 2): Code(s): E11.9 - Type 2 diabetes mellitus without complications Status: Acute Assessment and Plan: Insulin Lispro sliding scale, Accu-checks qAc and HS and Hold oral hypoglycemics Initiate hypoglycemic precautions Subjective Date/time seen: 11/03/22 11:21 Interval history: Feeling a little bit better. Exam Narrative: GENERAL: Comfortable, no acute distress, morbidly obese HENMT: moist mucous membranes EYES: EOM intact b/l NECK: no lymphadenopathy RESPIRATORY: Distant breath sounds CARDIO/CHEST: RRR, petechiae rash over chest that is nonblanching GI: soft, nontender, bowel sounds present SKIN: no rashes EXTREMITIES: no edema, redness or tenderness Objective Data Vital Signs Vital Signs: Vital Signs - 24 hr 11/02/22 12:00 11/02/22 14:12 11/02/22 14:30 Temperature Pulse Rate 81 82 80 Respiratory Rate 18 18 Blood Pressure Pulse Oximetry Oxygen Delivery Fraction of Inspired Oxygen 11/02/22 14:00 11/02/22 16:00 11/02/22 20:57 Temperature 98.4 F Pulse Rate 76 80 85 Respiratory Rate 18 18 Blood Pressure 135/83 Pulse Oximetry 98 Oxygen Delivery Fraction of Inspired Oxygen 11/02/22 20:58 11/02/22 21:08 11/02/22 20:00 Temperature Pulse Rate 85 Respiratory Rate 18 Blood Pressure Pulse Oximetry 97 Oxygen Delivery Room Air Room Air Fraction of Inspired Oxygen 11/02/22 23:04 11/02/22 22:00 11/03/22 02:02 Temperature 97.5 F L Pulse Rate 87 81 Respiratory Rate 17 18 18 Blood Pressure 142/61 H Pulse Oximetry 94 Oxygen Delivery CPAP Fraction of Inspired Oxygen 11/03/22 02:10 11/02/22 20:00 11/03/22 00:00 Temperature Pulse Rate 77 90 84 Respiratory Rate 18 Blood Pressure Pulse Oximetry Oxygen Delivery Fraction of Inspired Oxygen 11/03/22 04:00 11/03/22 06:00 11/03/22 07:25 Temperature 96.1 F L Pulse Rate 77 76 Respiratory Rate 18 Blood Pressure 113/61 Pulse Oximetry 97 95 Oxygen Delivery Room Air Fraction of Inspired Oxygen 21 11/03/22 07:25 11/03/22 07:41 11/03/22 08:00 Temperature Pulse Rate 75 83 84 Respiratory Rate 18 18 Blood Pressure Pulse Oximetry Oxygen Delivery Fraction of Inspired Oxygen Intake/Output Intake/Output: Intake & Output 10/31/22 11/01/22 11/02/22 11/03/22 23:59 23:59 23:59 23:59 Intake Total 1526 1530 830 Output Total 1800 1650 700 Balance -274 -120 130 Meds/Results Medications: Active Medications Generic Name Dose Route Start Last Admin Trade Name Freq PRN Reason Stop Dose Admin Hydrocodone Bitart/Acetaminophen 1 tab 11/01/22 08:17 11/02/22 21:40 Hydrocodone/Acetaminophen (*Crx) 7.5-325 Mg Tablet PO 1 tab Q6H PRN Administration Pain 4-6 Albuterol 2.5 mg 11/01/22 08:00 11/03/22 07:22 Albuterol Sulfate Neb 2.5 Mg/3 Ml Inh INHALATION 2.5 mg Q6HRT RODERICK Administration Albuterol 1 puff 11/01/22 08:17 Albuterol Sulfate (*Sp) Aerosol 1 Puff INHALATION QIDRT PRN shortness of breath or wheezing Amitriptyline HCl 25 mg 11/01/22 21:00 11/02/22 20:26 Amitriptyline Hcl 25 Mg Tablet
[2022-11-03 12:02] LABS: Glucose Point of Care 143 mg/dl (65-105)
[2022-11-03] MEDS: diphenhydrAMINE HCl CAP 25 MG CAPSULE PO ×2 (15:31→20:54)
[2022-11-03] MEDS: RIVAROXABAN 20 MG TABLET PO (17:07)
[2022-11-03 17:24] LABS: Glucose Point of Care 127 mg/dl (65-105)
[2022-11-03] MEDS: HYDROcodone/acetaminophen (*CRX) 7.5-325 MG TABLET 1 TAB PO (20:52)
[2022-11-03] MEDS: AMITRIPTYLINE HCL 25 MG TABLET PO (20:54)
[2022-11-03] MEDS: rOPINIRole HCL 1 MG TABLET 5 MG PO (20:54)
[2022-11-03 21:07] LABS: Glucose Point of Care 124 mg/dl (65-105)
[2022-11-04] VITALS (12 sets, daily range): BP systolic 124–131; BP diastolic 68–90; PULSE 78–97; RESP 16–18; TEMP 36.4; O2SAT 94–97
[2022-11-04] MEDS: ALBUTEROL SULFATE NEB 2.5 MG/3 ML INH INHALATION ×2 (02:09→08:04)
[2022-11-04] MEDS: IPRATROPIUM BR 0.02% INH SOLN 0.5 MG/2.5 ML VIAL INHALATION ×2 (02:10→08:04)
[2022-11-04] MEDS: HYDROmorphone HCL INJ (*CRX) 1 MG/ML SYR 0.5 MG IV PUSH (03:40)
[2022-11-04] MEDS: oxyBUTYnin CHLORIDE 5 MG TABLET 15 MG PO (10:32)
[2022-11-04] MEDS: HYDROcodone/acetaminophen (*CRX) 7.5-325 MG TABLET 1 TAB PO (10:38)
[2022-11-04 12:10] LABS: Glucose Point of Care 216 mg/dl (65-105)
[2022-11-04] MEDS: INSULIN ASPART (*BKC) 100 UNITS/ML 22 UNITS SUB-Q (12:42)
--- NOTE | 2022-11-04 17:03 | PC.NURSE ---
Addendum entered by Kari Ahumada RN 11/04/22 17:04: Pt IV's removed, pt tolerated well. Original Note: Pt discharged home with daughter. Pt reports pain, related to chronic pain. Pt expresses no other needs. Pt was monitored for any changes in status.
--- NOTE | 2022-11-21 12:06 | PM.DS ---
DS: Admitting Diagnosis Discharge Date 11/04/22 Admitting Diagnosis Ozempic reaction DS: Discharge Diagnosis Discharge Diagnosis (1) Diffuse arthralgia: Code(s): M25.50 - Pain in unspecified joint Status: Acute Assessment and Plan: Hold Ozempic and losartan at this time Analgesics as needed. Benadryl p.r.n. for pruritus CTA chest abdomen pelvis revealed no acute abnormality. (2) Dyspnea: Qualifiers: Dyspnea type: unspecified Qualified Code(s): R06.00 - Dyspnea, unspecified Code(s): R06.00 - Dyspnea, unspecified Status: Inactive Assessment and Plan: CTA chest abdomen pelvis within normal limits. Chest x-ray no acute cardiopulmonary process. Patient does not require oxygen supplementation at this time. CK, BNP and troponin all within normal limits. DuoNebs p.r.n.. (3) DM type 2 (diabetes mellitus, type 2): Code(s): E11.9 - Type 2 diabetes mellitus without complications Status: Acute Assessment and Plan: Insulin Lispro sliding scale, Accu-checks qAc and HS and Hold oral hypoglycemics Initiate hypoglycemic precautions DS: Summary Hospital Course Hospital Course: admitted for nv and flu like symptoms - likely secondary to ozempic - feeling better, can be dc. Time Spent with Patient Time attestation: Total time spent providing and/or coordinating discharge services: Exam Narrative: GENERAL: Comfortable, no acute distress, morbidly obese HENMT: moist mucous membranes EYES: EOM intact b/l NECK: no lymphadenopathy RESPIRATORY: Distant breath sounds CARDIO/CHEST: RRR, petechiae rash over chest that is nonblanching GI: soft, nontender, bowel sounds present SKIN: no rashes EXTREMITIES: no edema, redness or tenderness Discharge Plan Discharge Attending physician on discharge: Justen Quevdeo Consulting providers: Kim Echols; Kip Red; Jonatan Parra Discharging Clinician: Justen Quevedo Patient Disposition: Home, Self-Care Activity: as tolerated Diet: as tolerated Patient Instructions: Antibiotic Form, Rivaroxaban (By mouth), Heart Failure (DC), Dyspnea (DC) Stand Alone Forms: General Discharge Information Follow-up/Referrals: Shahla,Justen Spicer MD [Primary Care Provider] - Discharge Medications: Continued amitriptyline 25 mg tablet 25 mg PO HS exemestane 25 mg tablet 25 mg PO HS ropinirole 5 mg tablet 5 mg PO HS insulin glargine [Lantus Solostar U-100 Insulin] 100 unit/mL (3 mL) insulin pen 50 unit SUBCUT QAM Xarelto 20 mg tablet 20 mg PO DAILY hydrocodone-acetaminophen 7.5-325 mg tablet 1 tablet PO Q6H PRN (Reason: Pain) insulin lispro [Humalog KwikPen Insulin] 100 unit/mL insulin pen 22 unit SUBCUT TID albuterol sulfate 90 mcg/actuation HFA aerosol inhaler 1 inh inhalation QID PRN (Reason: shortness of breath or wheezing) Qty: 6.7 0RF methenamine hippurate 1 gram tablet 1 g PO BID No Action oxybutynin chloride 15 mg tablet extended release 24hr 15 mg PO DAILY Date of admission: 11/01/22 03:34 Primary Care Provider: Shahla,Justen Spicer Admitting Provider: Saima Coombs V. Attending physician on admission: Justen Quevedo Condition: Stable
--- NOTE | 2022-11-21 12:07 | PM.DS ---
DS: Admitting Diagnosis Discharge Date 11/04/22 Admitting Diagnosis ozempic reaction DS: Discharge Diagnosis Discharge Diagnosis (1) Diffuse arthralgia: Code(s): M25.50 - Pain in unspecified joint Status: Acute Assessment and Plan: Hold Ozempic and losartan at this time Analgesics as needed. Benadryl p.r.n. for pruritus CTA chest abdomen pelvis revealed no acute abnormality. (2) Dyspnea: Qualifiers: Dyspnea type: unspecified Qualified Code(s): R06.00 - Dyspnea, unspecified Code(s): R06.00 - Dyspnea, unspecified Status: Inactive Assessment and Plan: CTA chest abdomen pelvis within normal limits. Chest x-ray no acute cardiopulmonary process. Patient does not require oxygen supplementation at this time. CK, BNP and troponin all within normal limits. DuoNebs p.r.n.. (3) DM type 2 (diabetes mellitus, type 2): Code(s): E11.9 - Type 2 diabetes mellitus without complications Status: Acute Assessment and Plan: Insulin Lispro sliding scale, Accu-checks qAc and HS and Hold oral hypoglycemics Initiate hypoglycemic precautions DS: Summary Hospital Course Hospital Course: Patient is a 67-year-old female who came in after recently starting was septic and had some symptoms of some shortness of breath, flu-like illness, malaise and nausea vomiting. Workup was unrevealing for any type of infection or pneumonia. She was treated conservatively by stopping her Ozempic and she subsequently improved. She can be discharged home Time Spent with Patient Time attestation: Total time spent providing and/or coordinating discharge services: Exam Narrative: GENERAL: Comfortable, no acute distress, morbidly obese HENMT: moist mucous membranes EYES: EOM intact b/l NECK: no lymphadenopathy RESPIRATORY: Distant breath sounds CARDIO/CHEST: RRR, petechiae rash over chest that is nonblanching GI: soft, nontender, bowel sounds present SKIN: no rashes EXTREMITIES: no edema, redness or tenderness Discharge Plan Discharge Attending physician on discharge: Justen Quevedo Consulting providers: Kim Echols; Kip Red; Jonatan Parra Discharging Clinician: Justen Quevedo Patient Disposition: Home, Self-Care Activity: as tolerated Diet: as tolerated Patient Instructions: Antibiotic Form, Rivaroxaban (By mouth), Heart Failure (DC), Dyspnea (DC) Stand Alone Forms: General Discharge Information Follow-up/Referrals: Shahla,Justen Spicer MD [Primary Care Provider] - Discharge Medications: Continued amitriptyline 25 mg tablet 25 mg PO HS exemestane 25 mg tablet 25 mg PO HS ropinirole 5 mg tablet 5 mg PO HS insulin glargine [Lantus Solostar U-100 Insulin] 100 unit/mL (3 mL) insulin pen 50 unit SUBCUT QAM Xarelto 20 mg tablet 20 mg PO DAILY hydrocodone-acetaminophen 7.5-325 mg tablet 1 tablet PO Q6H PRN (Reason: Pain) insulin lispro [Humalog KwikPen Insulin] 100 unit/mL insulin pen 22 unit SUBCUT TID albuterol sulfate 90 mcg/actuation HFA aerosol inhaler 1 inh inhalation QID PRN (Reason: shortness of breath or wheezing) Qty: 6.7 0RF methenamine hippurate 1 gram tablet 1 g PO BID No Action oxybutynin chloride 15 mg tablet extended release 24hr 15 mg PO DAILY Date of admission: 11/01/22 03:34 Primary Care Provider: ShahlaJusten Admitting Provider: Saima Coombs V. Attending physician on admission: Justen Quevedo Condition: Stable
== END 2022-11-04 14:40 | disposition home or self-care (01) ==
LOC: ANHED 03:33 → ANH3MEDSUR 11:46
PROVIDERS: Internal Medicine Critical Care Medicine; Admitting Provider Internal Medicine; Emergency Provider Emergency Medicine; PCP Internal Medicine; Visit Provider Chiropractor
DX: M25.50 Pain in unspecified joint (principal); R06.00 Dyspnea, unspecified; E11.40 Type 2 diabetes mellitus with diabetic neuropathy, unspecified; I50.9 Heart failure, unspecified; R07.89 Other chest pain; F41.9 Anxiety disorder, unspecified; F32.A Depression, unspecified; N39.0 Urinary tract infection, site not specified; Z20.822 Contact with and (suspected) exposure to COVID-19; G89.29 Other chronic pain; M54.9 Dorsalgia, unspecified; E03.9 Hypothyroidism, unspecified; E04.1 Nontoxic single thyroid nodule; E66.01 Morbid (severe) obesity due to excess calories; D72.829 Elevated white blood cell count, unspecified; G25.81 Restless legs syndrome; G47.33 Obstructive sleep apnea (adult) (pediatric); Z68.43 Body mass index [BMI] 50.0-59.9, adult; Z87.891 Personal history of nicotine dependence; Z86.711 Personal history of pulmonary embolism; Z85.3 Personal history of malignant neoplasm of breast; Z86.16 Personal history of COVID-19; Z86.718 Personal history of other venous thrombosis and embolism; Z79.01 Long term (current) use of anticoagulants; Z79.84 Long term (current) use of oral hypoglycemic drugs; Z79.4 Long term (current) use of insulin; Z79.891 Long term (current) use of opiate analgesic; Z79.899 Other long term (current) drug therapy; Z83.3 Family history of diabetes mellitus; Z82.49 Family history of ischemic heart disease and other diseases of the circulatory system; Z84.89 Family history of other specified conditions
CPT/HCPCS: 36415; 71046; 80053; 82550; 82948; 83605; 83880; 84484; 85025; 85027; 87636; 93005; 94002; 94640; 96361; 96374; 96375; 96376; 99285; A9270; G0378; J1170; J1815; J2270; J7040

== ENCOUNTER 2022-11-05 15:21 | Observation (INO) | payer MEDICARE, MEDICAID, SELFPAY ==
[2022-11-05] VITALS (12 sets, daily range): BP systolic 107–135; BP diastolic 59–88; PULSE 65–99; RESP 16–22; TEMP 36.6; O2SAT 95–100; BMI 52.9
--- NOTE | ~2022-11-05 | XR_ITS ---
EXAMINATION: XR chest 2V DATE: 11/05/2022 15:52 INDICATION: Shortness of breath. TECHNIQUE: Frontal and lateral views of the chest were obtained. COMPARISON: Chest 2 views 11/01/2022, chest CT 10/28/22 FINDINGS: The chest demonstrates clear lungs without pneumonia, pleural effusion, or pneumothorax. Th e heart size is normal. Epidural electrodes are noted. IMPRESSION: 1. No acute cardiopulmonary disease. Reviewed, dictated and finalized at location E.
--- NOTE | ~2022-11-05 | CT_ITS ---
EXAMINATION: CT brain wo con DATE: 11/05/2022 22:48 INDICATION: Dizziness TECHNIQUE: Computed tomography (CT) of the head was performed without intravenous contrast. The mA wa s adjusted according to patient size. Iterative reconstruction technique was employed. Exam dose: 60 5.33 mGy-cm total exam DLP. COMPARISON: 10/17/2018 CT brain. FINDINGS: There are basilar artery and bilateral carotid siphon internal carotid artery calcification s. No intracranial mass lesion or hemorrhage or cerebrovascular accident, midline shift or mass effect i s detected. Normal ventricular size. No subdural or epidural hematoma. The mastoid air cells and included paranasal sinuses are normally developed and aerated. No fracture or bone destruction of the cranial vault. IMPRESSION: Cerebral atherosclerosis; otherwise unremarkable examination Reviewed, dictated and finalized at Location [facility]. Reviewed, dictated and finalized at location A.
--- NOTE | ~2022-11-05 | CT_ITS ---
EXAMINATION: CT abdomen pelvis w con DATE: 11/05/2022 19:51 INDICATION: Abdominal pain. Vomiting. Shortness of breath. Dizziness. TECHNIQUE: Computed tomography (CT) of the abdomen and pelvis was performed with 100 mL Omnipaque 350 intravenous contrast. Automated exposure control and iterative reconstruction technique were employe d. The dose-length product was 1591.25 mGy-cm. COMPARISON: CT abdomen and pelvis 10/28/2022, 09/03/20 FINDINGS: The visualized portions of the lung bases demonstrate mild atelectasis. There are a few nod ules in left lung lower lobe measuring up to 5 mm, stable from 09/03/2020, likely benign. No pleural e ffusion. The heart size is normal. No pericardial effusion. The liver is normal. There are changes of cholecystectomy. The spleen, pancreas, adrenal glands, and left kidney are normal. There is a 17 mm cyst in right kidney. There are changes of ventral hernia repair. There is diverticulosis of the colo n without evidence of diverticulitis. There are no dilated loops of bowel. The appendix is not visual ized. Epidural electrodes are noted. There is moderate thoracic and lumbar spondylosis. IMPRESSION: 1. No etiology for the patient's symptoms. Reviewed, dictated and finalized at location E.
--- NOTE | 2022-11-05 15:24 | ECG_ITS ---
Measurements Intervals [place] Rate: 89 P: 25 NV: 131 QRS: -3 QRSD: 85 T: 60 QT: 353 QTc: 431 Interpretive Statements SINUS RHYTHM EARLY PRECORDIAL R/S TRANSITION BORDERLINE ST ABNORMALITY- HIGH LATERAL LEADS BORDERLINE ECG COMPARED TO ECG 11/01/2022 01:25:59 ST ABNORMALITY NOW PRESENT Electronically Signed On 11-06-2022 7:57:42 CDT by Jonatan Parra D.O.
[2022-11-05 16:00] LABS: Basophils Percent Auto 0.3 % (0.2-1.2); Eosinophils Absolute Auto 0.3 K/mm3 (0-0.3); Eosinophils Percent Auto 2.6 % (0-4.4); Hematocrit 42.3 % (37.0-47.0); Hemoglobin 13.2 g/dL (12.0-15.0); Immature Granulocyte Absolute 0.05 K/mm3 (0.00-0.031); Immature Granulocyte Percent A 0.4 % (0-0.5); Lymphocytes Absolute Auto 2.84 K/mm3 (0.9-3.2); Lymphocytes Percent Auto 24.5 % (18.3-44.2); Mean Corpuscular HGB Conc 31.2 g/dl (32-36); Mean Corpuscular Hemoglobin 28.5 pg (26-34); Mean Corpuscular Volume 91.4 fl (80-100); Mean Platelet Volume 9.4 fl (7.4-10.4); Monocytes Absolute Auto 0.8 K/mm3 (0.1-0.6); Monocytes Percent Auto 6.6 % (2.6-8.5); Neutrophils Absolute Auto 7.6 K/mm3 (1.3-6.7); Neutrophils Percent Auto 65.6 % (45.5-73.1); Platelet Count Result 311 k/mm3 (150-375); Red Blood Count 4.63 M/mm3 (4.2-5.4); Red Cell Distribution Width 14.2 % (11.5-14.5); White Blood Count 11.6 K/mm3 (4.5-10.0)
[2022-11-05 16:08] LABS: Alanine Aminotransferase 28 U/L (6-35); Alkaline Phosphatase 73 U/L (38-126); Anion Gap 8 mmol/L (8-16); Aspartate Amino Transferase 29 U/L (14-36); Bilirubin,Total 0.5 mg/dL (0.2-1.3); Blood Urea Nitrogen 18 mg/dL (7-17); Calcium 9.5 mg/dL (8.4-10.2); Carbon Dioxide 29 mmol/L (22-30); Chloride 101 mmol/L (98-107); Estimated CRCL calculation 85 ml/min; Estimated Glomerular Filt Rate > 60; Glucose 208 mg/dL (65-110); Potassium 4.3 mmol/L (3.4-5.0); Sodium 138 mmol/L (137-145)
--- NOTE | 2022-11-05 19:24 | ED.ABDPAIN ---
HPI - Abdominal Pain General Chief Complaint: Shortness of Breath/Dyspnea Stated Complaint: SOB/unsteady Time Seen by Provider: 11/05/22 18:50 Related Data Home Medications Medication Instructions Recorded Confirmed amitriptyline 25 mg tablet 25 mg PO HS 01/06/20 11/06/22 exemestane 25 mg tablet 25 mg PO HS 01/06/20 11/06/22 insulin glargine 100 unit/mL (3 50 unit subcut QAM 01/06/20 11/06/22 mL) subcutaneous pen (Lantus Solostar U-100 Insulin) rivaroxaban 20 mg tablet (Xarelto) 20 mg PO DAILY 01/06/20 11/06/22 ropinirole 5 mg tablet 5 mg PO HS 01/06/20 11/06/22 hydrocodone 7.5 mg-acetaminophen 1 tablet PO Q6H PRN Pain 03/19/22 11/06/22 325 mg tablet insulin lispro 100 unit/mL 22 unit subcut TID 03/19/22 11/06/22 subcutaneous pen (Humalog KwikPen (U-100) Insulin) methenamine hippurate 1 gram tablet 1 g PO BID 07/19/22 11/06/22 oxybutynin chloride 15 mg 15 mg PO DAILY 11/06/22 11/06/22 tablet,extended release 24 hr Allergies Allergy/AdvReac Type Severity Reaction Status Date / Time ceftriaxone Allergy Severe SOB Verified 11/01/22 01:31 cephalexin Allergy Severe Difficulty Verified 11/01/22 01:31 Breathing Cephalosporins Allergy Severe Difficulty Verified 11/01/22 01:31 Breathing lorazepam Allergy Severe Swelling Verified 11/01/22 01:31 metoclopramide Allergy Intermediate Other Verified 11/01/22 01:31 chlorhexidine Allergy Mild BLISTERING Verified 11/01/22 01:31 levofloxacin Allergy Mild Hives / Verified 11/01/22 01:31 Red Face ketorolac Allergy Itching Verified 11/01/22 01:31 latex Allergy Rash Verified 11/01/22 01:31 nitrofurantoin Allergy Itching Verified 11/01/22 01:31 sulfamethoxazole Allergy Itching Verified 11/01/22 01:31 [From Sulfamethoxazole-Trimethoprim] trazodone Allergy Swelling Verified 11/01/22 01:31 of Lip/Tongue/Throat trimethoprim Allergy Itching Verified 11/01/22 01:31 [From Sulfamethoxazole-Trimethoprim] oxycodone AdvReac Mild Vomiting Verified 11/01/22 01:31 amlodipine AdvReac Swelling Verified 11/01/22 01:31 lisinopril AdvReac Swelling Verified 11/01/22 01:31 meropenem AdvReac Rash Verified 11/01/22 01:31 pregabalin AdvReac Swelling Verified 11/01/22 01:31 reslizumab AdvReac Unknown Verified 11/01/22 01:31 [facility] Past Medical History Medical History Anxiety Breast cancer CHF (congestive heart failure) Chronic back pain Collagenous colitis COVID-19 Depression DM type 2 (diabetes mellitus, type 2) DVT (deep venous thrombosis) Hypothyroid IBS (irritable bowel syndrome) Kidney stone Morbid obesity Multiple thyroid nodules LUL on CPAP Peripheral neuropathy Pulmonary embolism positive for coagulation workup RLS (restless legs syndrome) 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) Surgical History Surgical History H/O hernia repair H/O mastectomy bilateral History of cardiac catheterization no CAD noted History of esophagogastroduodenoscopy (EGD) History of right oophorectomy History of total right knee replacement Hx of cholecystectomy Hx of colonoscopy S/P insertion of spinal cord stimulator S/P ureteral stent placement Family History Family History Mother Diabetes mellitus Acute myocardial infarction Cerebrovascular accident Hypertension Congestive heart failure Father Prostate carcinoma Sibling Breast cancer Acute myocardial infarction Chronic obstructive pulmonary disease Social History Social History Social History: Patient lives at home with daughter, Yunior, whom she designates as her surrogate MDM. Her PCP is Dr. Gale. She is thus former smoker. She is and disabled Code status Full Code Smoking packs per day: 0 Smoking cigarettes per day: 0.0 Years smoked:
[2022-11-05] MEDS: ONDANSETRON INJ 4 MG/2 ML VIAL IV PUSH (19:30)
[2022-11-05 19:31] LABS: Creatine Kinase 94 U/L (30-135)
[2022-11-05] MEDS: SODIUM CHLORIDE 0.9% IV 500 ML 999 ML IV CONT ×2 (19:33→21:50)
[2022-11-05] MEDS: MORPHINE SULFATE (*CRX) 4 MG/ML INJ IV PUSH (19:35)
[2022-11-05 20:40] LABS: Appearance Urine Clear (Clear); Bilirubin Urine Negative (Negative); Blood Urine Negative (Negative); Color Urine Yellow (Yellow); Glucose Urine UA Negative (Negative); Ketones Urine Negative (Negative); Leukocyte Esterase Ur Negative LEU/UL (Negative); Nitrate Urine Negative (Negative); Protein Urine Negative (Negative); Urobilinogen Urine 0.2 mg/dL (<2.0)
[2022-11-05 21:32] LABS: Add Urine Microscopic? NO; Specific Grav Ur 1.044 (1.001-1.035)
--- NOTE | 2022-11-05 22:27 | PM.IMHP ---
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 patient was started on Ozempic and comes today to the emergency room due to nausea vomiting, fatigue, generalized muscle aches and pains, fatigue, shortness of breath, Diarrhea alternating with loose stools. Preliminary workup has been essentially nonrevealing. Patient has been placed in observation for further evaluation management and treatment. EXAMINATION: CT abdomen pelvis w con DATE: 11/05/2022 19:51 INDICATION: Abdominal pain. Vomiting. Shortness of breath. Dizziness. TECHNIQUE: Computed tomography (CT) of the abdomen and pelvis was performed with 100 mL Omnipaque 350 intravenous contrast. Automated exposure control and iterative reconstruction technique were employed. The dose-length product was 1591.25 mGy-cm. COMPARISON: CT abdomen and pelvis 10/28/2022, 09/03/20 FINDINGS: The visualized portions of the lung bases demonstrate mild atelectasis. There are a few nodules in left lung lower lobe measuring up to 5 mm, stable from 09/03/2020, likely benign. No pleural effusion. The heart size is normal. No pericardial effusion. The liver is normal. There are changes of cholecystectomy. The spleen, pancreas, adrenal glands, and left kidney are normal. There is a 17 mm cyst in right kidney. There are changes of ventral hernia repair. There is diverticulosis of the colon without evidence of diverticulitis. There are no dilated loops of bowel. The appendix is not visualized. Epidural electrodes are noted. There is moderate thoracic and lumbar spondylosis. IMPRESSION: 1. No etiology for the patient's symptoms. EXAMINATION: XR chest 2V DATE: 11/05/2022 15:52 INDICATION: Shortness of breath. TECHNIQUE: Frontal and lateral views of the chest were obtained. COMPARISON: Chest 2 views 11/01/2022, chest CT 10/28/22 FINDINGS: The chest demonstrates clear lungs without pneumonia, pleural effusion, or pneumothorax. The heart size is normal. Epidural electrodes are noted. IMPRESSION: 1. No acute cardiopulmonary disease. Review of Systems Review of Systems: Nausea, vomiting, generalized muscle aches and pains, fatigue, shortness of breath, diarrhea and loose stools, numbness. Constitutional: Constitutional: Reports body ache(s), Denies chills, Reports fatigue, Denies fever(s), Reports lethargy, Denies night sweats, Reports poor appetite and Reports weakness Eyes: Eyes: Reports blurry vision ENT: Denies dysphagia, Denies vertigo, Denies dizziness and Denies odynophagia Cardiovascular: Cardiovascular: Denies chest pain, Denies radiating jaw, neck or arm pain and Denies palpitations Respiratory: Respiratory: Denies chest congestion, Denies cough and Denies excessive phlegm production Gastrointestinal: Gastrointestinal: Reports abdominal pain, Reports diarrhea, Reports loose stools, Reports nausea and Reports vomiting Genitourinary: Genitourinary: Denies dysuria and Denies flank pain Musculoskeletal: Musculoskeletal: Reports back pain, Reports myalgias, Reports muscle weakness and Reports numbness Integumentary/Breasts: Skin/Breast: Denies rash Neurologic: Denies vertigo, Denies dizziness, Denies focal weakness and Denies Sensory deficit (Neuro) Psychiatric: Psychiatric: Reports no additional psychiatric complaints and Reports as per HPI Endocrine: Endocrine: Denies cold intolerance, Denies flushing, Denies heat intolerance, Denies polyphagia, Reports polydipsia and Denies palpitations Hematologic/Lymphatic: Hematologic/Lymphatic: Reports no additional hematologic/lymphatic complaints and Reports as per HPI Allergic/Immunologic: Allergic/Immunologic: Reports
[2022-11-06] VITALS (12 sets, daily range): BP systolic 105–114; BP diastolic 57–75; PULSE 70–97; RESP 14–20; TEMP 36.1–36.6; O2SAT 94–100
--- NOTE | 2022-11-06 | ADMGEN ---
This patient, Karly Marques, was admitted to [facility] Room 311-01 at 2330. Patient/family oriented to hospital policies and general routines including ID bracelet, bed and alarms, visiting hours, pain management, procedures, bathroom and other care routines, personal items, smoking policy, room service/diet, and visiting hours. Information on how to activate the Rapid Response Team has been discussed. Patient/Family are encouraged to report perceived risks to care and to ask questions if they do not understand what they are told or what they should do.
[2022-11-06 00:05] LABS: Glucose Point of Care 122 mg/dl (65-105)
[2022-11-06] MEDS: AMITRIPTYLINE HCL 25 MG TABLET PO ×2 (02:16→21:20)
[2022-11-06] MEDS: rOPINIRole HCL 1 MG TABLET 5 MG PO ×2 (02:16→21:21)
[2022-11-06] MEDS: HYDROmorphone HCL INJ (*CRX) 1 MG/ML SYR IV PUSH (02:30)
--- NOTE | 2022-11-06 05:54 | PHAR ---
HOME MED- Exemestane 25 mg tablet- TAKE 1 TABLET BY MOUTH EVERY NIGHT. Verified and sent back to 3 med-surg
[2022-11-06 08:01] LABS: Glucose Point of Care 167 mg/dl (65-105)
[2022-11-06] MEDS: INSULIN ASPART (*BKC) 100 UNITS/ML 22 UNITS SUB-Q ×3 (09:12→18:06)
[2022-11-06] MEDS: INSULIN GLARGINE (*BKC) 100 UNITS/ML 25 UNITS SUB-Q (09:12)
[2022-11-06] MEDS: oxyBUTYnin CHLORIDE XL 5 MG TAB.ER.24 15 MG PO (09:14)
[2022-11-06] MEDS: HYDROcodone/acetaminophen (*CRX) 7.5-325 MG TABLET 1 TAB PO ×2 (09:22→16:12)
--- NOTE | 2022-11-06 10:27 | PM.IMPN ---
Progress Note: A&P Assessment and Plan (1) Nausea and vomiting: Code(s): R11.2 - Nausea with vomiting, unspecified Status: Acute Assessment and Plan: place in observation likely secondary to Ozempic adverse reaction will stop ozempic continue to monitor (2) Type II diabetes mellitus: Code(s): E11.9 - Type 2 diabetes mellitus without complications Status: Acute Assessment and Plan: continue home meds continue to monitor (3) Peripheral neuropathy: Code(s): G62.9 - Polyneuropathy, unspecified Status: Acute Assessment and Plan: continue amitriptyline (4) Restless leg syndrome: Code(s): G25.81 - Restless legs syndrome Status: Acute Assessment and Plan: continue ropinirole (5) Chronic back pain: Code(s): M54.9 - Dorsalgia, unspecified; G89.29 - Other chronic pain Status: Acute Assessment and Plan: Tylenol p.r.n. (6) Morbid obesity with BMI of 50.0-59.9, adult: Code(s): E66.01 - Morbid (severe) obesity due to excess calories; Z68.43 - Body mass index [BMI] 50.0-59.9, adult Status: Acute Assessment and Plan: carb consistent diet calorie restricted lifestyle and diet modifications (7) LUL on CPAP: Code(s): G47.33 - Obstructive sleep apnea (adult) (pediatric); Z99.89 - Dependence on other enabling machines and devices Status: Acute Assessment and Plan: continue CPAP (8) Dizziness: Code(s): R42 - Dizziness and giddiness Status: Acute Assessment and Plan: Will get MRI of her brain Subjective Date/time seen: 11/06/22 10:27 Interval history: Feeling about the same. Still having nausea. Exam Narrative: patient is laying in bed Const: General: cooperative, comfortable, no acute distress, well developed, alert, awake and obese ( morbidly) Nutritional Appearance: obese ( morbidly) morbidly obese Orientation/consciousness: patient oriented x3 HENMT: Head: normal to inspection, normocephalic and atraumatic Ears: hearing grossly normal bilaterally Face/Nose/Sinus: normal facial exam Face and sinus: normal facial exam Eyes: General: appearance normal, both eyes and all related structures Pupils: Equal, round and reactive pupils present EOM: EOMs intact bilaterally Neck: Neck: full ROM, no lymphadenopathy and no JVD Thyroid: thyroid normal Lymphatic: no lymphadenopathy noted Resp: Effort & Inspection: normal respiratory effort and able to speak in complete sentences Auscultation: clear to auscultation bilaterally Cardio: Jugular venous distension: no JVD Rate: regular rate Rhythm: regular rhythm Heart sounds: S1 normal heart sound present and S2 normal heart sound present GI: Inspection: Pannus present and obesity : General: Yes deferred Skin: Rashes: no rashes Wounds: no wounds Neuro: General: patient oriented x3 and CN's II-XI intact bilaterally Cranial nerves: Yes CN's II-XII intact bilaterally and Yes Equal, round and reactive pupils present Cognition (Neuro): normal cognition Speech: normal speech Gait exam (Neuro): Normal gait present Motor exam (neuro): 5/5 motor strength present throughout Sensory Exam: No Sensory deficit (Neuro) Extrem: General: normal to inspection, full ROM, no joint enlargement and no pedal edema Objective Data Vital Signs Vital Signs: Vital Signs - 24 hr 11/05/22 15:33 11/05/22 19:03 11/05/22 19:04 Temperature 97.9 F Pulse Rate 95 89 Respiratory Rate 17 Blood Pressure 119/74 Pulse Oximetry 99 100 Oxygen Delivery Room Air Room Air 11/05/22 19:00 11/05/22 19:15 11/05/22 19:16 Temperature Pulse Rate 80 99 95 Respiratory Rate 21 H 18 22 H Blood Pressure 135/88 Pulse Oximetry 98 98 98 Oxygen Delivery 11/05/22 20:00 11/05/22 20:15 11/05/22 20:34 Temperature Pulse Rate 84 65 Respiratory Rate 16 21 H Blood Pressure Pulse Oximetry 95 97 97 Oxygen Delivery
[2022-11-06 12:05] LABS: Glucose Point of Care 141 mg/dl (65-105)
--- NOTE | 2022-11-06 12:06 | PC.NURSE ---
MRI form completed. MRI notified. MRI stated MRI can not be done due to patient's back stimulator. MD will be notified.
[2022-11-06] MEDS: ONDANSETRON INJ 4 MG/2 ML VIAL IV PUSH (13:37)
[2022-11-06] MEDS: RIVAROXABAN 20 MG TABLET PO (18:06)
--- NOTE | 2022-11-06 19:08 | PC.NURSE ---
Pt reported nausea today. Pt was treated with zofran. Pt lantus was cut in half due to blood sugar this am. Pt reports pain which was treated with norco. Pt is asking for something stronger. Pt has expressed no other needs. Pt has participated and contributed in plan of care. Pt was monitored for any changes in status.
[2022-11-06 19:46] LABS: Glucose Point of Care 111 mg/dl (65-105)
[2022-11-06] MEDS: traMADol HCL (*CRX) 50 MG TABLET PO (21:11)
[2022-11-06 21:39] LABS: Glucose Point of Care 119 mg/dl (65-105)
[2022-11-07] VITALS: PULSE 77
[2022-11-07 01:53] VITALS: PULSE 88; O2SAT 95
[2022-11-07] MEDS: traMADol HCL (*CRX) 50 MG TABLET PO (04:23)
--- NOTE | 2022-11-07 05:27 | PC.NURSE ---
Pt was interested in leaving AMA at 1999 on 11/06/2022. Pt was educated about leaving AMA. Pt was not satisfied with the NORCO pain medication she was receiving for back pain, abdominal pain, and bilateral leg pain. Pt states NORCO does not provide pain relief. Pt wanted Dilaudid IVP instead. Pt was educated on home use of pain medication she can use at home and how Dilaudid IVP will not be able to be prescribed for home use. Pt states she feels like its her pain is in her muscles. Pt was offered NORCO, ice packs, heating pads, and encouraged to try Tramadol as another pain medication option for relief. Pt has agreed to try Tramadol PO Q6 and received pain relief. No further complaints from pt at this time. Continued monitoring.
[2022-11-07 05:39] VITALS: BP 123/63; PULSE 79; RESP 16; TEMP 36.5; O2SAT 98
[2022-11-07 07:57] LABS: Glucose Point of Care 149 mg/dl (65-105)
[2022-11-07 08:00] VITALS: PULSE 73
[2022-11-07] MEDS: INSULIN GLARGINE (*BKC) 100 UNITS/ML 50 UNITS SUB-Q (08:18)
[2022-11-07] MEDS: oxyBUTYnin CHLORIDE XL 5 MG TAB.ER.24 15 MG PO (08:19)
--- NOTE | 2022-11-07 10:48 | PM.DS ---
DS: Admitting Diagnosis Discharge Date November 07, 2022 Admitting Diagnosis Dyspnea. Nausea DS: Discharge Diagnosis Discharge Diagnosis (1) Nausea and vomiting: Code(s): R11.2 - Nausea with vomiting, unspecified Status: Acute Assessment and Plan: place in observation likely secondary to Ozempic adverse reaction will stop ozempic continue to monitor (2) Type II diabetes mellitus: Code(s): E11.9 - Type 2 diabetes mellitus without complications Status: Acute Assessment and Plan: continue home meds continue to monitor (3) Peripheral neuropathy: Code(s): G62.9 - Polyneuropathy, unspecified Status: Acute Assessment and Plan: continue amitriptyline (4) Restless leg syndrome: Code(s): G25.81 - Restless legs syndrome Status: Acute Assessment and Plan: continue ropinirole (5) Chronic back pain: Code(s): M54.9 - Dorsalgia, unspecified; G89.29 - Other chronic pain Status: Acute Assessment and Plan: Tylenol p.r.n. (6) Morbid obesity with BMI of 50.0-59.9, adult: Code(s): E66.01 - Morbid (severe) obesity due to excess calories; Z68.43 - Body mass index [BMI] 50.0-59.9, adult Status: Acute Assessment and Plan: carb consistent diet calorie restricted lifestyle and diet modifications (7) LUL on CPAP: Code(s): G47.33 - Obstructive sleep apnea (adult) (pediatric); Z99.89 - Dependence on other enabling machines and devices Status: Acute Assessment and Plan: continue CPAP (8) Dizziness: Code(s): R42 - Dizziness and giddiness Status: Acute Assessment and Plan: Will get MRI of her brain DS: Summary Hospital Course Hospital Course: Patient was admitted for dyspnea and nausea. Workup negative. She had another hospitalization just prior to this for some issues. Most of this is likely related to her Ozempic. She can be discharged. She is not going to continue was infected Time Spent with Patient Time attestation: Total time spent providing and/or coordinating discharge services: Exam Narrative: patient is laying in bed Const: General: cooperative, comfortable, no acute distress, well developed, alert, awake and obese ( morbidly) Nutritional Appearance: obese ( morbidly) morbidly obese Orientation/consciousness: patient oriented x3 HENMT: Head: normal to inspection, normocephalic and atraumatic Ears: hearing grossly normal bilaterally Face/Nose/Sinus: normal facial exam Face and sinus: normal facial exam Eyes: General: appearance normal, both eyes and all related structures Pupils: Equal, round and reactive pupils present EOM: EOMs intact bilaterally Neck: Neck: full ROM, no lymphadenopathy and no JVD Thyroid: thyroid normal Lymphatic: no lymphadenopathy noted Resp: Effort & Inspection: normal respiratory effort and able to speak in complete sentences Auscultation: clear to auscultation bilaterally Cardio: Jugular venous distension: no JVD Rate: regular rate Rhythm: regular rhythm Heart sounds: S1 normal heart sound present and S2 normal heart sound present GI: Inspection: Pannus present and obesity : General: Yes deferred Skin: Rashes: no rashes Wounds: no wounds Neuro: General: patient oriented x3 and CN's II-XI intact bilaterally Cranial nerves: Yes CN's II-XII intact bilaterally and Yes Equal, round and reactive pupils present Cognition (Neuro): normal cognition Speech: normal speech Gait exam (Neuro): Normal gait present Motor exam (neuro): 5/5 motor strength present throughout Sensory Exam: No Sensory deficit (Neuro) Extrem: General: normal to inspection, full ROM, no joint enlargement and no pedal edema DS: Data Data Completed and Pending Labs on day of discharge: Labs from last 24 hours 11/07/22 11/06/22 11/06/22 07:50 21:26 17:02 POC Capillary Glucose 149 H 119 H 111 H 11/06/22 11:41 POC Capillary Glucos
[2022-11-07 11:40] LABS: Glucose Point of Care 195 mg/dl (65-105)
[2022-11-07 12:00] VITALS: PULSE 74
== END 2022-11-07 13:00 | disposition home or self-care (01) ==
LOC: ANHED 18:50 → ANH3MEDSUR 23:47
PROVIDERS: Emergency Medicine; Admitting Provider Internal Medicine; Emergency Provider Physician Assistant; PCP Internal Medicine; Visit Provider Chiropractor
DX: R11.2 Nausea with vomiting, unspecified (principal); R06.09 Other forms of dyspnea; I50.9 Heart failure, unspecified; G89.29 Other chronic pain; M54.9 Dorsalgia, unspecified; K52.831 Collagenous colitis; Z86.16 Personal history of COVID-19; G25.81 Restless legs syndrome; E11.40 Type 2 diabetes mellitus with diabetic neuropathy, unspecified; I67.2 Cerebral atherosclerosis; E03.9 Hypothyroidism, unspecified; F32.A Depression, unspecified; F41.9 Anxiety disorder, unspecified; R42 Dizziness and giddiness; E66.01 Morbid (severe) obesity due to excess calories; G47.33 Obstructive sleep apnea (adult) (pediatric); Z99.89 Dependence on other enabling machines and devices; Z68.43 Body mass index [BMI] 50.0-59.9, adult; Z79.4 Long term (current) use of insulin; Z79.01 Long term (current) use of anticoagulants; Z79.891 Long term (current) use of opiate analgesic; Z79.899 Other long term (current) drug therapy; Z86.718 Personal history of other venous thrombosis and embolism; Z86.711 Personal history of pulmonary embolism
CPT/HCPCS: 36415; 70450; 71046; 74177; 80053; 81003; 82550; 82948; 85025; 93005; 96361; 96374; 96375; 96376; 99285; A9270; G0378; J1170; J1815; J2270; J2405; J7040; Q9967

== ENCOUNTER 2022-11-28 23:58 | Emergency (ER) | payer MEDICARE, MEDICAID, SELFPAY ==
[2022-11-28 23:59] VITALS: BP 170/90; PULSE 87; RESP 18; TEMP 36.3; O2SAT 97
[2022-11-29 00:09] LABS: Glucose Point of Care 392 mg/dl (65-105)
[2022-11-29 00:34] LABS: Basophils Percent Auto 0.2 % (0.2-1.2); Hematocrit 44.1 % (37.0-47.0); Hemoglobin 13.9 g/dL (12.0-15.0); Immature Granulocyte Absolute 0.11 K/mm3 (0.00-0.031); Immature Granulocyte Percent A 0.8 % (0-0.5); Lymphocytes Absolute Auto 1.03 K/mm3 (0.9-3.2); Lymphocytes Percent Auto 7.7 % (18.3-44.2); Mean Corpuscular HGB Conc 31.5 g/dl (32-36); Mean Corpuscular Volume 91.9 fl (80-100); Mean Platelet Volume 9.5 fl (7.4-10.4); Monocytes Absolute Auto 0.2 K/mm3 (0.1-0.6); Monocytes Percent Auto 1.3 % (2.6-8.5); Neutrophils Absolute Auto 12.1 K/mm3 (1.3-6.7); Platelet Count Result 312 k/mm3 (150-375); Red Cell Distribution Width 14.2 % (11.5-14.5); White Blood Count 13.4 K/mm3 (4.5-10.0)
[2022-11-29 00:40] LABS: Appearance Urine Clear (Clear); Bacteria Urine None Seen /hpf; Bilirubin Urine Negative (Negative); Blood Urine 1+ (Negative); Color Urine Yellow (Yellow); Glucose Urine UA 3+ mg/dL (Negative); Ketones Urine Negative (Negative); Leukocyte Esterase Ur Negative LEU/UL (Negative); Nitrate Urine Negative (Negative); Non Pathogenic Casts 0-2; Protein Urine Trace mg/dL (Negative); Specific Grav Ur 1.031 (1.001-1.035); Squamous Epithelial Cell Urine None seen /hpf (Few); Urobilinogen Urine 0.2 mg/dL (<2.0); WBC Urine 0-5 /hpf; pH Urine 6.5 (5.0-9.0)
[2022-11-29 00:45] LABS: Add Urine Microscopic? YES
[2022-11-29 00:48] LABS: Alanine Aminotransferase 45 U/L (6-35); Albumin Level 4.5 g/dL (3.5-5.1); Alkaline Phosphatase 95 U/L (38-126); Anion Gap 10 mmol/L (8-16); Aspartate Amino Transferase 27 U/L (14-36); Bilirubin,Total 0.5 mg/dL (0.2-1.3); Blood Urea Nitrogen 21 mg/dL (7-17); Calcium 9.3 mg/dL (8.4-10.2); Carbon Dioxide 24 mmol/L (22-30); Chloride 100 mmol/L (98-107); Estimated CRCL calculation 98 ml/min; Estimated Glomerular Filt Rate > 60; Glucose 393 mg/dL (65-110); Magnesium 1.9 mg/dL (1.6-2.3); Phosphorus 2.7 mg/dL (2.5-4.5); Potassium 4.9 mmol/L (3.4-5.0); Sodium 134 mmol/L (137-145)
[2022-11-29 00:55] LABS: Beta-Hydroxybutyrate/Acetoacetate 0.08 mmol/L (0.02-0.27)
[2022-11-29] MEDS: SODIUM CHLORIDE 0.9% IV 1,000 ML 999 ML IV CONT ×2 (01:01→02:20)
[2022-11-29 01:03] LABS: Fractional Inspired Oxygen 21 %; HCO3 VBG 22.1 mEq/l (24.0-30.0); PCO2 VBG 32.6 mmHg (42.0-48.0); PO2 VBG 82.4 mmHg (35.0-45.0)
[2022-11-29 01:05] LABS: Device ROOM AIR; pH VBG 7.449 (7.300-7.400)
--- NOTE | 2022-11-29 01:16 | ED.GENADULT ---
HPI - General Adult General Chief complaint: Recheck/Abnormal Lab/Rx Stated complaint: high BS Time Seen by Provider: 11/29/22 01:06 Source: patient Mode of arrival: ambulatory Limitations: no limitations History of Present Illness HPI narrative: This is a 67-year-old female who presents to the ED with chief complaint of high blood sugars for the past week. She reports associated nausea, lightheadedness and headache today. She states that her blood sugars have not been below 200 in the past week. She states she had a recent back injection and knee injection which have likely increased her sugars. She states she normally does not have problems with the back injections but this was her first knee injection. Patient reports that she called her photographic editor this evening but did not have a blood sugar to tell them as her meter only read high. Denies fevers, chills, shortness of breath, chest pain, abdominal pain, urinary symptoms. Related Data Home Medications Medication Instructions Recorded Confirmed amitriptyline 25 mg tablet 25 mg PO HS 01/06/20 11/06/22 exemestane 25 mg tablet 25 mg PO HS 01/06/20 11/06/22 insulin glargine 100 unit/mL (3 50 unit subcut QAM 01/06/20 11/06/22 mL) subcutaneous pen (Lantus Solostar U-100 Insulin) rivaroxaban 20 mg tablet (Xarelto) 20 mg PO DAILY 01/06/20 11/06/22 ropinirole 5 mg tablet 5 mg PO HS 01/06/20 11/06/22 hydrocodone 7.5 mg-acetaminophen 1 tablet PO Q6H PRN Pain 03/19/22 11/06/22 325 mg tablet insulin lispro 100 unit/mL 22 unit subcut TID 03/19/22 11/06/22 subcutaneous pen (Humalog KwikPen (U-100) Insulin) methenamine hippurate 1 gram tablet 1 g PO BID 07/19/22 11/06/22 oxybutynin chloride 15 mg 15 mg PO DAILY 11/06/22 11/06/22 tablet,extended release 24 hr Allergies Allergy/AdvReac Type Severity Reaction Status Date / Time ceftriaxone Allergy Severe SOB Verified 11/29/22 03:45 cephalexin Allergy Severe Difficulty Verified 11/29/22 03:45 Breathing Cephalosporins Allergy Severe Difficulty Verified 11/29/22 03:45 Breathing lorazepam Allergy Severe Swelling Verified 11/29/22 03:45 metoclopramide Allergy Intermediate Other Verified 11/29/22 03:45 chlorhexidine Allergy Mild BLISTERING Verified 11/29/22 03:45 levofloxacin Allergy Mild Hives / Verified 11/29/22 03:45 Red Face ketorolac Allergy Itching Verified 11/29/22 03:45 latex Allergy Rash Verified 11/29/22 03:45 nitrofurantoin Allergy Itching Verified 11/29/22 03:45 sulfamethoxazole Allergy Itching Verified 11/29/22 03:45 [From Sulfamethoxazole-Trimethoprim] trazodone Allergy Swelling Verified 11/29/22 03:45 of Lip/Tongue/Throat trimethoprim Allergy Itching Verified 11/29/22 03:45 [From Sulfamethoxazole-Trimethoprim] oxycodone AdvReac Mild Vomiting Verified 11/29/22 03:45 amlodipine AdvReac Swelling Verified 11/29/22 03:45 lisinopril AdvReac Swelling Verified 11/29/22 03:45 meropenem AdvReac Rash Verified 11/29/22 03:45 pregabalin AdvReac Swelling Verified 11/29/22 03:45 reslizumab AdvReac Unknown Verified 11/29/22 03:45 Review of Systems Review of Systems: All systems as dictated in [facility] Past Medical History Medical History Anxiety Breast cancer CHF (congestive heart failure) Chronic back pain Collagenous colitis COVID-19 Depression DM type 2 (diabetes mellitus, type 2) DVT (deep venous thrombosis) Hypothyroid IBS (irritable bowel syndrome) Kidney stone Morbid obesity Multiple thyroid nodules LUL on CPAP Peripheral neuropathy Pulmonary embolism positive for coagulation workup RLS (restless legs syndrome) 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) Surgical History Surgical History H/O hernia repair H/O mastectomy bilateral History of cardiac catheterization no CAD noted History of esophagogastroduodenoscopy (EGD) History of
[2022-11-29] MEDS: diphenhydrAMINE HCl INJ 50 MG/ML VIAL 25 MG IV PUSH (01:50)
[2022-11-29] MEDS: PROCHLORPERAZINE EDISYLATE 10 MG/2 ML VIAL IV PUSH (01:50)
[2022-11-29 02:21] LABS: Glucose Point of Care 357 mg/dl (65-105)
[2022-11-29 02:27] VITALS: BP 146/88; PULSE 86; RESP 18; O2SAT 100
[2022-11-29] MEDS: rOPINIRole HCL 1 MG TABLET 5 MG PO (03:34)
[2022-11-29] MEDS: rOPINIRole HCL 1 MG TABLET 2 MG PO (03:48)
[2022-11-29 03:55] LABS: Glucose Point of Care 367 mg/dl (65-105)
[2022-11-29] MEDS: INSULIN HUMAN REGULAR (*BKC) 100 UNITS/ML IV PUSH (03:58)
[2022-11-29] MEDS: MORPHINE SULFATE (*CRX) 4 MG/ML INJ IV PUSH (03:59)
[2022-11-29] MEDS: POTASSIUM CHLORIDE 20 MEQ PACKET (FOR LIQUID) PO (04:08)
[2022-11-29 04:34] LABS: Glucose Point of Care 305 mg/dl (65-105)
[2022-11-29 04:53] VITALS: BP 146/88; PULSE 63; RESP 16; O2SAT 98
== END 2022-11-29 04:56 | disposition home or self-care (01) ==
PROVIDERS: General Practice; Emergency Provider Physician Assistant; PCP Internal Medicine
DX: E72.51 Non-ketotic hyperglycinemia (principal); E11.9 Type 2 diabetes mellitus without complications; I50.9 Heart failure, unspecified; E03.9 Hypothyroidism, unspecified; Z86.718 Personal history of other venous thrombosis and embolism; Z79.4 Long term (current) use of insulin; Z87.891 Personal history of nicotine dependence
CPT/HCPCS: 36415; 80053; 81001; 82010; 82803; 82948; 83735; 84100; 85025; 96361; 96374; 96375; 99284; A9270; J0780; J1200; J1815; J2270; J7030

== ENCOUNTER 2022-12-04 08:47 | Emergency (ER) | payer MEDICARE, MEDICAID, SELFPAY ==
--- NOTE | ~2022-12-04 | CT_ITS ---
EXAMINATION: CT abdomen pelvis w con INDICATION: Lower abdominal pain TECHNIQUE: Computed tomographic images of the abdomen and pelvis were obtained after the administrati on of 100 cc of Omnipaque 350 intravenous contrast. The dose-length product (DLP) was 1436.57 mGy-cm. Automated exposure control and iterative reconstruction technique were employed. COMPARISON: 11/05/2022 FINDINGS: Minimal dependent atelectasis is present in the lung bases. The heart size is normal. Again noted are small, stable left lower lobe nodules measuring up to 5 mm, likely benign. There are moran es of cholecystectomy. The liver, spleen, pancreas, and adrenal glands are normal. Cysts of the right kidney measure up to 1.4 cm. The left kidney is unremarkable. No pathologically enlarged abdominal o r pelvic lymph nodes are identified. No free intraperitoneal gas or evidence of bowel obstruction. Co lonic diverticulosis is present without evidence of diverticulitis. Changes of ventral hernia repair are noted. There is moderate lower thoracic and lumbar spondylosis. Bilateral sacroiliitis is noted. IMPRESSION: 1. No CT correlate for the patient's symptoms. Reviewed, dictated and finalized at location A.
[2022-12-04 08:48] VITALS: BP 186/88; PULSE 94; RESP 16; TEMP 36.2; O2SAT 98
[2022-12-04 09:15] LABS: Appearance Urine Clear (Clear); Bacteria Urine None Seen /hpf; Bilirubin Urine Negative (Negative); Blood Urine Trace (Negative); Color Urine Yellow (Yellow); Glucose Urine UA Negative (Negative); Ketones Urine Negative (Negative); Leukocyte Esterase Ur Negative LEU/UL (Negative); Nitrate Urine Negative (Negative); Non Pathogenic Casts 0-2; Protein Urine Trace mg/dL (Negative); RBC Urine 0-2 /hpf (0-2); Specific Grav Ur 1.023 (1.001-1.035); Squamous Epithelial Cell Urine None seen /hpf (Few); Urobilinogen Urine 0.2 mg/dL (<2.0); WBC Urine 0-5 /hpf
[2022-12-04 09:17] LABS: Add Urine Microscopic? YES
--- NOTE | 2022-12-04 09:38 | ED.FEMALEGU ---
HPI - Female Genitourinary General Chief complaint: Urogenital-Female Stated complaint: uti? Time Seen by Provider: 12/04/22 08:56 Source: patient and old records reviewed Mode of arrival: ambulatory Limitations: no limitations History of Present Illness HPI Narrative: Patient is a 67-year-old female, with long medical history including insulin-dependent diabetes, overactive bladder, frequent UTIs, who presents to the ED with report of urinary symptoms. Patient reports she has a history of frequent and difficult to treat UTIs. She has been seeing a urologist with [facility] and was recently started on methenamine hippurate. She reports she has been doing very well with this medication and has not had a UTI in approximately 6 months. Over the last 3 to 4 days, she does report having urinary frequency with urgency, intermittent dysuria. She also reports having lower abdominal pain since yesterday and nausea with vomiting last night. She does still feel nauseous currently. Denies any hematuria. Denies fevers. Reported diarrhea 2 days ago, denies constipation. Related Data Home Medications Medication Instructions Recorded Confirmed amitriptyline 25 mg tablet 25 mg PO HS 01/06/20 11/06/22 exemestane 25 mg tablet 25 mg PO HS 01/06/20 11/06/22 insulin glargine 100 unit/mL (3 50 unit subcut QAM 01/06/20 11/06/22 mL) subcutaneous pen (Lantus Solostar U-100 Insulin) rivaroxaban 20 mg tablet (Xarelto) 20 mg PO DAILY 01/06/20 11/06/22 ropinirole 5 mg tablet 5 mg PO HS 01/06/20 11/06/22 hydrocodone 7.5 mg-acetaminophen 1 tablet PO Q6H PRN Pain 03/19/22 11/06/22 325 mg tablet insulin lispro 100 unit/mL 22 unit subcut TID 03/19/22 11/06/22 subcutaneous pen (Humalog KwikPen (U-100) Insulin) methenamine hippurate 1 gram tablet 1 g PO BID 07/19/22 11/06/22 oxybutynin chloride 15 mg 15 mg PO DAILY 11/06/22 11/06/22 tablet,extended release 24 hr Allergies Allergy/AdvReac Type Severity Reaction Status Date / Time ceftriaxone Allergy Severe SOB Verified 11/29/22 03:45 cephalexin Allergy Severe Difficulty Verified 11/29/22 03:45 Breathing Cephalosporins Allergy Severe Difficulty Verified 11/29/22 03:45 Breathing lorazepam Allergy Severe Swelling Verified 11/29/22 03:45 metoclopramide Allergy Intermediate Other Verified 11/29/22 03:45 chlorhexidine Allergy Mild BLISTERING Verified 11/29/22 03:45 levofloxacin Allergy Mild Hives / Verified 11/29/22 03:45 Red Face ketorolac Allergy Itching Verified 11/29/22 03:45 latex Allergy Rash Verified 11/29/22 03:45 nitrofurantoin Allergy Itching Verified 11/29/22 03:45 sulfamethoxazole Allergy Itching Verified 11/29/22 03:45 [From Sulfamethoxazole-Trimethoprim] trazodone Allergy Swelling Verified 11/29/22 03:45 of Lip/Tongue/Throat trimethoprim Allergy Itching Verified 11/29/22 03:45 [From Sulfamethoxazole-Trimethoprim] oxycodone AdvReac Mild Vomiting Verified 11/29/22 03:45 amlodipine AdvReac Swelling Verified 11/29/22 03:45 lisinopril AdvReac Swelling Verified 11/29/22 03:45 meropenem AdvReac Rash Verified 11/29/22 03:45 pregabalin AdvReac Swelling Verified 11/29/22 03:45 reslizumab AdvReac Unknown Verified 11/29/22 03:45 Review of Systems Review of Systems: CONSTITUTIONAL: Denies fever, chills, or sweats. CARDIOVASCULAR: Denies chest pain. RESPIRATORY: Denies dyspnea. GASTROINTESTINAL: See HPI. GENITOURINARY: See HPI. SKIN: Denies rash or itching. MUSCULOSKELETAL: Denies back pain, joint pain, or myalgia. All systems reviewed & are unremarkable except as noted in HPI and below PMFSH Past Medical History Medical History Anxiety Breast cancer CHF (congestive heart failure) Chronic back pain Collagenous colitis COVID-19 Depression DM type 2 (diabetes mellitus, type 2) DVT (deep venous thrombosis) Hypothyroid IBS (irritable bowel syndrome)
[2022-12-04 09:43] LABS: Basophils Percent Auto 0.2 % (0.2-1.2); Eosinophils Absolute Auto 0.3 K/mm3 (0-0.3); Eosinophils Percent Auto 1.8 % (0-4.4); Hematocrit 44.3 % (37.0-47.0); Hemoglobin 14.1 g/dL (12.0-15.0); Immature Granulocyte Absolute 0.08 K/mm3 (0.00-0.031); Immature Granulocyte Percent A 0.5 % (0-0.5); Lymphocytes Absolute Auto 2.85 K/mm3 (0.9-3.2); Lymphocytes Percent Auto 19.1 % (18.3-44.2); Mean Corpuscular HGB Conc 31.8 g/dl (32-36); Mean Corpuscular Hemoglobin 29.1 pg (26-34); Mean Corpuscular Volume 91.5 fl (80-100); Mean Platelet Volume 10.1 fl (7.4-10.4); Monocytes Absolute Auto 0.8 K/mm3 (0.1-0.6); Monocytes Percent Auto 5.6 % (2.6-8.5); Neutrophils Absolute Auto 10.8 K/mm3 (1.3-6.7); Neutrophils Percent Auto 72.8 % (45.5-73.1); Platelet Count Result 278 k/mm3 (150-375); Red Blood Count 4.84 M/mm3 (4.2-5.4); Red Cell Distribution Width 14.1 % (11.5-14.5); White Blood Count 14.9 K/mm3 (4.5-10.0)
[2022-12-04 09:54] LABS: Alanine Aminotransferase 27 U/L (6-35); Albumin Level 4.2 g/dL (3.5-5.1); Alkaline Phosphatase 78 U/L (38-126); Anion Gap 4 mmol/L (8-16); Aspartate Amino Transferase 25 U/L (14-36); Bilirubin,Total 1.2 mg/dL (0.2-1.3); Blood Urea Nitrogen 18 mg/dL (7-17); Calcium 9.9 mg/dL (8.4-10.2); Carbon Dioxide 28 mmol/L (22-30); Chloride 99 mmol/L (98-107); Estimated CRCL calculation 84 ml/min; Estimated Glomerular Filt Rate > 60; Glucose 217 mg/dL (65-110); Potassium 4.3 mmol/L (3.4-5.0); Sodium 131 mmol/L (137-145)
== END 2022-12-04 12:01 | disposition home or self-care (01) ==
PROVIDERS: Preventive Medicine Aerospace Medicine; Emergency Provider Physician Assistant; PCP Internal Medicine
DX: R35.0 Frequency of micturition (principal); R10.30 Lower abdominal pain, unspecified; I50.9 Heart failure, unspecified; I11.0 Hypertensive heart disease with heart failure; E11.42 Type 2 diabetes mellitus with diabetic polyneuropathy; E03.9 Hypothyroidism, unspecified; E66.01 Morbid (severe) obesity due to excess calories; Z68.43 Body mass index [BMI] 50.0-59.9, adult; G47.33 Obstructive sleep apnea (adult) (pediatric); G25.81 Restless legs syndrome; F32.A Depression, unspecified; F41.9 Anxiety disorder, unspecified; Z98.2 Presence of cerebrospinal fluid drainage device; Z96.651 Presence of right artificial knee joint; Z86.718 Personal history of other venous thrombosis and embolism; Z86.73 Personal history of transient ischemic attack (TIA), and cerebral infarction without residual deficits; Z86.711 Personal history of pulmonary embolism; Z87.440 Personal history of urinary (tract) infections; Z87.442 Personal history of urinary calculi; Z87.891 Personal history of nicotine dependence; Z90.13 Acquired absence of bilateral breasts and nipples; Z90.721 Acquired absence of ovaries, unilateral; Z90.49 Acquired absence of other specified parts of digestive tract; Z79.4 Long term (current) use of insulin; Z79.01 Long term (current) use of anticoagulants
CPT/HCPCS: 36415; 74177; 80053; 81001; 85025; 99284; Q9967

== ENCOUNTER 2022-12-17 13:26 | Inpatient (IN) | payer MEDICARE, MEDICAID, SELFPAY ==
[2022-12-17] VITALS (25 sets, daily range): BP systolic 109–185; BP diastolic 65–109; PULSE 75–88; RESP 17–21; TEMP 36.2–36.8; O2SAT 94–100; BMI 53.7
--- NOTE | ~2022-12-17 | CT_ITS ---
EXAMINATION: CT brain wo con DATE: 12/17/2022 14:15 INDICATION: Fall. Struck back of head. Headache. Neck pain. Patient on blood thinners. TECHNIQUE: Computed tomography (CT) of the head was performed without intravenous contrast. The mA wa s adjusted according to patient size. Iterative reconstruction technique was employed. Exam dose: 60 5.33 mGy-cm total exam DLP. COMPARISON: 11/05/2022 CT brain FINDINGS: Bilateral carotid siphon internal carotid artery calcifications. No intracranial mass lesion or hemorrhage or cerebrovascular accident is detected. No midline shift o r mass effect. No subdural or epidural hematoma. No fracture or bone destruction of the cranial vault. The mastoid air cells and included paranasal sinuses are normally developed and aerated. IMPRESSION: No acute intracranial finding or skull fracture Cerebral atherosclerosis Reviewed, dictated and finalized at Location [facility]. Reviewed, dictated and finalized at location A.
--- NOTE | ~2022-12-17 | CT_ITS ---
EXAMINATION: CT cervical spine wo con DATE: 12/17/2022 14:16 INDICATION: Neck pain TECHNIQUE: Computed tomography (CT) of the cervical spine was performed without intravenous contrast. Automated exposure control and iterative reconstruction technique were employed. Exam dose: 506.97 mGy-cm total exam DLP. COMPARISON: 02/13/2018 CT cervical spine FINDINGS: There is straightening of cervical spine which may be due to muscle spasm and/or positionin g. There is mild levoscoliosis. There is chronic minimal anterolisthesis at C4-5. There is mild degenerative disc disease at C3-4, C4 -5 and moderately severe degenerative disc disease at C5-6 and C6-7. There is degenerative change at the apophyseal joints. Uncovertebral joint spurring is noted C5-6 and C6-7. IMPRESSION: Straightening, which may be due to muscle spasm. Mild levoscoliosis Moderate cervical spondylosis; no fracture, dislocation or locked facet Reviewed, dictated and finalized at Location [facility]. Reviewed, dictated and finalized at location A.
--- NOTE | ~2022-12-17 | XR_ITS ---
XR chest 1V portable DATE: 12/17/2022 14:20 INDICATION: Chest wall tenderness TECHNIQUE: AP chest, portable COMPARISON: 11/05/2022 PA and lateral chest FINDINGS: This is a limited rotated single portable AP view. There is enlargement of the cardiac silhouette, likely due to cardiomegaly; pericardial effusion is n ot excluded. There is pulmonary vascular redistribution which may indicate mild pulmonary venous hype rtension. No pulmonary infiltrate or consolidation, pleural effusion or pneumothorax is evident. IMPRESSION: Cardiomegaly, suggestion of mild pulmonary vascular congestion Reviewed, dictated and finalized at location A.
--- NOTE | ~2022-12-17 | XR_ITS ---
XR_[id number]_CR DATE: 12/17/2022 16:48 INDICATION: Neck injury and pain TECHNIQUE: Flexion and extension lateral views COMPARISON: 12/17/2022 CT cervical spine FINDINGS: There is approximately 2 mm anterolisthesis at C4-5 and flexion, slightly but not completel y reduced in extension. Prominent degenerative disc disease at C5-6 and C6-7. No fracture is detected. IMPRESSION: Approximately 2 mm anterolisthesis at C4-5 Reviewed, dictated and finalized at Location [facility]. Reviewed, dictated and finalized at location A.
--- NOTE | 2022-12-17 14:01 | ECG_ITS ---
Measurements Intervals [place] Rate: 84 P: 30 [place]: 135 QRS: -8 QRSD: 89 T: 39 QT: 352 QTc: 418 Interpretive Statements SINUS RHYTHM WITH OCCASIONAL SUPRAVENTRICULAR PREMATURE COMPLEXES MINIMAL VOLTAGE CRITERIA FOR LVH, CONSIDER NORMAL VARIANT [MEETS CRITERIA IN ONE OF: R(aVL), S(V1), R(V5), R(V5/V6)+S(V1)] NONSPECIFIC T-WAVE ABNORMALITY COMPARED TO ECG 11/05/2022 15:40:32 T-WAVE ABNORMALITY NOW PRESENT Electronically Signed On 12-18-2022 11:11:41 CDT by Delicia Bautista MD
--- NOTE | 2022-12-17 14:10 | ED.HA ---
HPI - Headache General Chief Complaint: Headache <Daksha Colón PA-C - Last Filed: 12/18/22 17:14> Stated Complaint: Fall Last Week, Headache <Daksha Colón PA-C - Last Filed: 12/18/22 17:14> Time Seen by Provider: 12/17/22 13:33 <Dkasha Colón PA-C - Last Filed: 12/18/22 17:14> History of Present Illness HPI Narrative: 67-year-old female with a history of insulin-dependent type 2 diabetes, breast cancer, chronic back pain, depression, peripheral neuropathy, pulmonary embolism who is chronically anticoagulated with Xarelto reports for evaluation for persistent headache and neck pain since a fall that occurred 6 days ago. Patient states 6 days ago, she was weeding in the garden and was pulling on a large weed, tripped on her feet and fell backwards. She reports hitting her head, no LOC. States she was evaluated immediately at [facility] in [place] where she had negative CT scans of her brain, neck and back and was discharged home. Since then, she has had persistent intermittent headaches that is significantly worsened today with associated photophobia and fasciculations to her right eye. Reports the headache is bitemporal and extends around her occiput. She states she called her PCP who advised her to come to the ER for further evaluation. She reports taking a Tylenol this morning at 0700 without improvement. She is also reporting generalized fatigue, intermittent difficulty with finding words, and nausea. She reports vomiting 3 times since the fall. She denies fever, abdominal pain, back pain no change from baseline, vision changes, focal numbness or weakness. She does report frequent urination over the past week but denies dysuria or hematuria. She reports frequent UTIs and states this is how her UTIs at times present. <Daksha Colón PA-C - Last Filed: 12/18/22 17:14> Related Data Home Medications: Home Medications Medication Instructions Recorded Confirmed amitriptyline 25 mg tablet 25 mg PO HS 01/06/20 12/17/22 exemestane 25 mg tablet 25 mg PO HS 01/06/20 12/17/22 insulin glargine 100 unit/mL (3 50 unit subcut QAM 01/06/20 12/17/22 mL) subcutaneous pen (Lantus Solostar U-100 Insulin) rivaroxaban 20 mg tablet (Xarelto) 20 mg PO DAILY 01/06/20 12/17/22 ropinirole 5 mg tablet 5 mg PO HS 01/06/20 12/17/22 insulin lispro 100 unit/mL 22 unit subcut TID 03/19/22 12/17/22 subcutaneous pen (Humalog KwikPen (U-100) Insulin) methenamine hippurate 1 gram tablet 1 g PO BID 07/19/22 12/17/22 oxybutynin chloride 15 mg 15 mg PO DAILY 11/06/22 12/17/22 tablet,extended release 24 hr hydrocodone 10 mg-acetaminophen 1 tablet PO Q6-8H PRN Pain 12/17/22 12/17/22 325 mg tablet <Daksha Colón PA-C - Last Filed: 12/18/22 17:14> Allergies/Adverse Reactions: Allergies Allergy/AdvReac Type Severity Reaction Status Date / Time ceftriaxone Allergy Severe SOB Verified 11/29/22 03:45 cephalexin Allergy Severe Difficulty Verified 11/29/22 03:45 Breathing Cephalosporins Allergy Severe Difficulty Verified 11/29/22 03:45 Breathing lorazepam Allergy Severe Swelling Verified 11/29/22 03:45 metoclopramide Allergy Intermediate Other Verified 11/29/22 03:45 chlorhexidine Allergy Mild BLISTERING Verified 11/29/22 03:45 levofloxacin Allergy Mild Hives / Verified 11/29/22 03:45 Red Face ketorolac Allergy Itching Verified 11/29/22 03:45 latex Allergy Rash Verified 11/29/22 03:45 nitrofurantoin Allergy Itching Verified 11/29/22 03:45 sulfamethoxazole Allergy Itching Verified 11/29/22 03:45 [From Sulfamethoxazole-Trimethoprim] trazodone Allergy Swelling Verified 11/29/22 03:45 of Lip/Tongue/Throat trimethoprim Allergy Itching Verified 11/29/22 03:45 [From Sulfamethoxazole-Trimethoprim] oxycodone AdvReac Mild Vomiting Verified 11/29/22 03:45 amlodipine AdvReac Swelling Verified 11/29/22 03:45 lisinopril AdvReac Swelling Verified 11/29/22
[2022-12-17] MEDS: ACETAMINOPHEN 500 MG TABLET 1000 MG PO (14:39)
[2022-12-17] MEDS: diphenhydrAMINE HCl INJ 50 MG/ML VIAL 25 MG IV PUSH ×2 (14:39→16:44)
[2022-12-17] MEDS: ONDANSETRON INJ 4 MG/2 ML VIAL IV PUSH (14:49)
[2022-12-17] MEDS: CYCLOBENZAPRINE HCL 10 MG TABLET PO (14:49)
[2022-12-17 15:15] LABS: Influenza A QL RT-PCR Negative (Negative); Influenza B QL RT-PCR Negative (Negative); SARS-CoV-2 RNA PCR Negative (Negative)
[2022-12-17 15:32] LABS: Basophils Percent Auto 0.2 % (0.2-1.2); Eosinophils Absolute Auto 0.2 K/mm3 (0-0.3); Hematocrit 41.5 % (37.0-47.0); Hemoglobin 13.1 g/dL (12.0-15.0); Immature Granulocyte Absolute 0.05 K/mm3 (0.00-0.031); Immature Granulocyte Percent A 0.5 % (0-0.5); Lymphocytes Absolute Auto 2.19 K/mm3 (0.9-3.2); Lymphocytes Percent Auto 20.5 % (18.3-44.2); Mean Corpuscular HGB Conc 31.6 g/dl (32-36); Mean Corpuscular Hemoglobin 29.6 pg (26-34); Mean Corpuscular Volume 93.7 fl (80-100); Mean Platelet Volume 9.3 fl (7.4-10.4); Monocytes Absolute Auto 0.7 K/mm3 (0.1-0.6); Monocytes Percent Auto 6.9 % (2.6-8.5); Neutrophils Absolute Auto 7.5 K/mm3 (1.3-6.7); Neutrophils Percent Auto 69.9 % (45.5-73.1); Platelet Count Result 274 k/mm3 (150-375); Red Blood Count 4.43 M/mm3 (4.2-5.4); Red Cell Distribution Width 13.8 % (11.5-14.5); White Blood Count 10.7 K/mm3 (4.5-10.0)
[2022-12-17 15:46] LABS: Alanine Aminotransferase 24 U/L (6-35); Alkaline Phosphatase 75 U/L (38-126); Anion Gap 7 mmol/L (8-16); Aspartate Amino Transferase 21 U/L (14-36); Bilirubin,Total 0.5 mg/dL (0.2-1.3); Blood Urea Nitrogen 17 mg/dL (7-17); Calcium 9.7 mg/dL (8.4-10.2); Carbon Dioxide 30 mmol/L (22-30); Chloride 99 mmol/L (98-107); Estimated CRCL calculation 86 ml/min; Estimated Glomerular Filt Rate > 60; Glucose 204 mg/dL (65-110); Potassium 4.1 mmol/L (3.4-5.0); Sodium 136 mmol/L (137-145)
[2022-12-17 15:47] LABS: Appearance Urine Clear (Clear); Bacteria Urine None Seen /hpf; Bilirubin Urine Negative (Negative); Blood Urine Trace (Negative); Color Urine Yellow (Yellow); Glucose Urine UA Negative (Negative); Ketones Urine Negative (Negative); Leukocyte Esterase Ur Negative LEU/UL (Negative); Nitrate Urine Negative (Negative); Non Pathogenic Casts 0-2; Protein Urine Negative (Negative); RBC Urine 0-2 /hpf (0-2); Specific Grav Ur 1.015 (1.001-1.035); Squamous Epithelial Cell Urine None seen /hpf (Few); Urobilinogen Urine 0.2 mg/dL (<2.0); WBC Urine 0-5 /hpf; pH Urine 5.5 (5.0-9.0)
[2022-12-17 15:49] LABS: Add Urine Microscopic? YES
[2022-12-17] MEDS: MORPHINE SULFATE (*CRX) 4 MG/ML INJ IV PUSH (16:58)
--- NOTE | 2022-12-17 17:53 | PM.IMHP ---
H&P: HPI History of Present Illness Date/Time: 12/17/22 19:00 Chief Complaint: Severe headache. Narrative: This is a 67-year-old female with multiple medical problems including history of breast cancer, congestive heart failure, chronic back pain, collagenous colitis, type 2 diabetes mellitus, hyperthyroidism, DVT and PE on chronic anticoagulation, obstructive sleep apnea, morbid obesity, and restless leg syndrome who presented to the emergency department via private vehicle from home with for evaluation of a severe headache. The patient provides the following history. 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 She struck the back of her head on brick edging without loss of consciousness. She was evaluated at [facility] where she reports having negatives CT scans of her brain, neck, and back. Since that time she has had constant pain from the upper back extending into the neck, occiput, and around to the temples. She endorses associated photophobia and fasciculations of the right eyelid. After speaking with her doctor she was referred to the ER for further evaluation. She has taken Tylenol at home in addition to the hydrocodone which he takes for chronic pain and she has not gotten any relief from that. Additionally she reports fatigue, nausea, decreased appetite, a couple of episodes of emesis earlier in the week, and weakness in the right arm and leg. She has been dropping things with her right hand which is unusual for her. Repeat CT of the head and neck did not show any acute findings. She is being admitted in this setting for further evaluation of her focal weakness. She denies fever, chills, sweats, vertigo, facial droop, difficulty speaking and swallowing, and new radicular or neuropathic pain. Review of Systems Review of Systems: Twelve systems were reviewed and are negative except for as per HPI. [facility] Past Medical History Medical History (Updated 12/17/22 @ 23:54 by Sharon Conde PA-C) Anxiety Breast cancer Chronic anticoagulation Chronic back pain Collagenous colitis Congestive heart failure COVID-19 Deep venous thrombosis Depression Irritable bowel syndrome Kidney stone Morbid obesity Multiple thyroid nodules Obstructive sleep apnea on CPAP Overactive bladder Peripheral neuropathy Pulmonary embolism positive for coagulation workup Restless leg syndrome Type 2 diabetes mellitus Surgical History Surgical History (Updated 12/17/22 @ 17:59 by Sharon Conde PA-C) History of bilateral mastectomy History of cardiac catheterization Reportedly negative for coronary artery disease. History of cholecystectomy History of colonoscopy History of cystoscopy History of esophagogastroduodenoscopy (EGD) History of right oophorectomy History of total right knee replacement History of umbilical hernia repair History of ureter stent Status post insertion of spinal cord stimulator Family History Family History Mother Diabetes mellitus Acute myocardial infarction Cerebrovascular accident Hypertension Congestive heart failure Father Prostate carcinoma Sibling Breast cancer Acute myocardial infarction Chronic obstructive pulmonary disease Social History Social History (Updated 12/17/22 @ 18:00 by Sharon Conde PA-C) Social History: Surrogate medical decision maker: Jimmie Marques, spouse. Code status: Full code. Smoking packs per day: 0 Smoking cigarettes per day: 0.0 Years smoked: 2 Smoking pack-years: 0.00 Smoking status: Former smoker Second hand tobacco smoke exposure: Yes Alcohol intake: never Substance use: never Substance use type: does not use Lack of Transportation: No Lack of Food: Never True Current Housing: I Have Housing Concerned About Future Housing: No Difficulty Paying Gas/Electric Bills: No Difficu
[2022-12-17] MEDS: MORPHINE SULFATE (*CRX) 2 MG/ML INJ IV PUSH (21:26)
[2022-12-17 21:44] LABS: Glucose Point of Care 215 mg/dl (65-105)
--- NOTE | 2022-12-17 21:59 | ADMGEN ---
This patient, Karly Marques, was admitted to [facility] Surg Room 326-01. Patient/family oriented to hospital policies and general routines including ID bracelet, bed and alarms, visiting hours, pain management, procedures, bathroom and other care routines, personal items, smoking policy, room service/diet, and visiting hours. Information on how to activate the Rapid Response Team has been discussed. Patient/Family are encouraged to report perceived risks to care and to ask questions if they do not understand what they are told or what they should do.
[2022-12-18] VITALS (13 sets, daily range): BP systolic 116–175; BP diastolic 63–101; PULSE 59–79; RESP 18–24; TEMP 35.7–36.9; O2SAT 92–99
[2022-12-18] MEDS: rOPINIRole HCL 1 MG TABLET 5 MG PO ×3 (00:52→19:52)
[2022-12-18] MEDS: ACETAMINOPHEN 325 MG TABLET 650 MG PO ×3 (00:55→14:35)
[2022-12-18] MEDS: MORPHINE SULFATE (*CRX) 2 MG/ML INJ IV PUSH ×5 (01:49→18:14)
[2022-12-18 07:28] LABS: Glucose Point of Care 135 mg/dl (65-105)
--- NOTE | 2022-12-18 07:51 | PM.IMPN ---
Progress Note: A&P Assessment and Plan (1) Right sided weakness: Code(s): R53.1 - Weakness Status: Acute Assessment and Plan: Could be secondary to complex migraine, give toradol + reglan + benadryl x 1 Appreciate neurology consultation (2) Headache: Code(s): R51.9 - Headache, unspecified Status: Acute Assessment and Plan: Unable to do MRI, consider CTA, defer to neuro (3) Neck pain: Code(s): M54.2 - Cervicalgia Status: Acute (4) Type 2 diabetes mellitus: Code(s): E11.9 - Type 2 diabetes mellitus without complications Status: Acute Assessment and Plan: Blood glucose reviewed 12/18 Accu-Cheks, sliding scale insulin, check A1c (5) Obstructive sleep apnea on CPAP: Code(s): G47.33 - Obstructive sleep apnea (adult) (pediatric) Status: Acute Assessment and Plan: CPAP as needed while sleeping (6) Chronic back pain: Code(s): M54.9 - Dorsalgia, unspecified; G89.29 - Other chronic pain Status: Acute Assessment and Plan: Chronic opiate dependence secondary to chronic back pain (7) Chronic anticoagulation: Code(s): Z79.01 - 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 No overnight events noted. No chest pain or shortness of breath. No nausea, vomiting or diarrhea. No fevers or chills. Patient is c/o severe headache that starts in the back of her head and radiates around her whole head and causes vision changes and light sensitivity. Review of Systems Review of Systems: 12 point review of systems was assessed and was negative except as noted in the HPI Exam Narrative: General: No acute distress, alert and oriented per baseline HEENT: Atraumatic, normocephalic, mucous membranes moist CV: Regular rate and rhythm, S1, S2 Lungs: Clear to auscultation bilaterally, no rales or crackles noted, no wheezes, good air entry Abdomen: Soft, nontender, nondistended Extremities: Normal to inspection Skin: No rashes noted, no lesions or wounds seen Psych: Euthymic, normal affect Objective Data Vital Signs Vital Signs: Vital Signs - 24 hr 12/17/22 13:28 12/17/22 14:49 12/17/22 15:00 Temperature 97.2 F L 98.2 F Pulse Rate 88 85 86 Respiratory Rate 18 17 18 Blood Pressure 185/96 H 154/94 H 152/96 H Pulse Oximetry 100 97 98 Oxygen Delivery 12/17/22 15:30 12/17/22 16:00 12/17/22 16:30 Temperature Pulse Rate 87 78 75 Respiratory Rate 20 21 H 18 Blood Pressure 143/86 H 132/65 157/104 H Pulse Oximetry 98 96 98 Oxygen Delivery 12/17/22 17:06 12/17/22 17:03 12/17/22 17:15 Temperature 97.9 F Pulse Rate 82 Respiratory Rate 19 Blood Pressure 133/109 H Pulse Oximetry 98 95 95 Oxygen Delivery 12/17/22 17:30 12/17/22 17:45 12/17/22 18:00 Temperature Pulse Rate Respiratory Rate Blood Pressure Pulse Oximetry 95 96 96 Oxygen Delivery 12/17/22 18:15 12/17/22 18:30 12/17/22 18:32 Temperature Pulse Rate Respiratory Rate Blood Pressure 138/81 Pulse Oximetry 97 98 96 Oxygen Delivery 12/17/22 18:45 12/17/22 18:46 12/17/22 19:00 Temperature Pulse Rate Respiratory Rate Blood Pressure 118/74 Pulse Oximetry 94 94 94 Oxygen Delivery 12/17/22 19:01 12/17/22 19:15 12/17/22 19:16 Temperature Pulse Rate Respiratory Rate Blood Pressure 109/71 121/78 Pulse Oximetry 94 94 94 Oxygen Delivery 12/17/22 19:30 12/17/22 19:31 12/17/22 21:45 Temperature 98.2 F 97
[2022-12-18 08:16] LABS: Hemoglobin A1C 8.7 % (<5.7)
[2022-12-18] MEDS: ONDANSETRON INJ 4 MG/2 ML VIAL IV PUSH ×2 (09:51→22:24)
[2022-12-18 11:41] LABS: Glucose Point of Care 187 mg/dl (65-105)
[2022-12-18] MEDS: diphenhydrAMINE HCl INJ 50 MG/ML VIAL IV PUSH ×2 (14:44→22:19)
[2022-12-18] MEDS: PROMETHAZINE HCL 25 MG/ML AMPUL 12.5 MG IV PUSH (15:23)
[2022-12-18] MEDS: SODIUM CHLORIDE 0.9% INJ 20 ML (15:23)
[2022-12-18] MEDS: KETOROLAC 15 MG/ML VIAL (*BKC) IV PUSH (15:23)
[2022-12-18 16:38] LABS: Glucose Point of Care 175 mg/dl (65-105)
[2022-12-18] MEDS: INSULIN ASPART (*BKC) 100 UNITS/ML 22 UNITS SUB-Q (17:27)
--- NOTE | 2022-12-18 18:10 | PC.NURSE ---
Patient is having restless legs she thinks it's from phenergan med given today.
--- NOTE | 2022-12-18 18:48 | PHAR ---
HOME MED EXEMESTANE 25 MG TABS VERIFIED BY PHARMACY
[2022-12-18] MEDS: HYDROcodone/acetaminophen (*CRX) 10-325 MG TABLET 1 TAB PO (19:49)
[2022-12-18] MEDS: AMITRIPTYLINE HCL 25 MG TABLET PO (19:52)
[2022-12-18 20:52] LABS: Glucose Point of Care 139 mg/dl (65-105)
--- NOTE | 2022-12-18 23:15 | PC.NURSE ---
pt c/o n&V Benadryl and Compazine continue per FACILITY EXAMINER [facility], pt refused Compazine but took Zofran
[2022-12-19] VITALS (12 sets, daily range): BP systolic 135–183; BP diastolic 65–103; PULSE 64–102; RESP 16–20; TEMP 36.3–36.8; O2SAT 96–100
--- NOTE | 2022-12-19 02:21 | PC.NURSE ---
pt family to bring in methenanine medication do to medication non-formulary
[2022-12-19] MEDS: HYDROcodone/acetaminophen (*CRX) 10-325 MG TABLET 1 TAB PO (06:30)
[2022-12-19] MEDS: ONDANSETRON INJ 4 MG/2 ML VIAL IV PUSH (06:30)
[2022-12-19] MEDS: diphenhydrAMINE HCl INJ 50 MG/ML VIAL IV PUSH ×2 (06:30→21:03)
[2022-12-19 07:53] LABS: Glucose Point of Care 142 mg/dl (65-105)
--- NOTE | 2022-12-19 08:46 | PM.IMPN ---
Progress Note: A&P Assessment and Plan (1) Right sided weakness: Code(s): R53.1 - Weakness Status: Acute Assessment and Plan: Could be secondary to complex migraine, give toradol + reglan + benadryl x 1, patient refused reglan, gave pheneragn instead Appreciate neurology consultation, pending 12/19: unchanged CAZARES, trial fioricet (2) Headache: Code(s): R51.9 - Headache, unspecified Status: Acute Assessment and Plan: Unable to do MRI, consider CTA, defer to neuro (3) Neck pain: Code(s): M54.2 - Cervicalgia Status: Acute (4) Type 2 diabetes mellitus: Code(s): E11.9 - Type 2 diabetes mellitus without complications Status: Acute Assessment and Plan: Blood glucose reviewed 12/19 Accu-Cheks, sliding scale insulin, A1c 8.7 (5) Obstructive sleep apnea on CPAP: Code(s): G47.33 - Obstructive sleep apnea (adult) (pediatric) Status: Acute Assessment and Plan: CPAP as needed while sleeping (6) Chronic back pain: Code(s): M54.9 - Dorsalgia, unspecified; G89.29 - Other chronic pain Status: Acute Assessment and Plan: Chronic opiate dependence secondary to chronic back pain (7) Chronic anticoagulation: Code(s): Z79.01 - [facility] (current) use of anticoagulants Status: Acute (8) Restless leg syndrome: Code(s): G25.81 - Restless legs syndrome Status: Acute Plan DVT prophylaxis with SCDs GI prophylaxis not indicated Code status full code Subjective Date/time seen: 12/19/22 08:46 Interval history: 67-year-old female with multiple medical problems including breast cancer, heart failure, diabetes is presenting with suspected complex migraine. No overnight events noted. No chest pain or shortness of breath. No nausea, vomiting or diarrhea. No fevers or chills. Patient is c/o severe headache that starts in the back of her head and radiates around her whole head and causes vision changes and light sensitivity. She states it feels about the same today as yesterday. Review of Systems Review of Systems: 12 point review of systems was assessed and was negative except as noted in the HPI Exam Narrative: General: No acute distress, alert and oriented per baseline HEENT: Atraumatic, normocephalic, mucous membranes moist CV: Regular rate and rhythm, S1, S2 Lungs: Clear to auscultation bilaterally, no rales or crackles noted, no wheezes, good air entry Abdomen: Soft, nontender, nondistended Extremities: Normal to inspection Skin: No rashes noted, no lesions or wounds seen Psych: Euthymic, normal affect Objective Data Vital Signs Vital Signs: Vital Signs - 24 hr 12/18/22 08:50 12/18/22 14:00 12/18/22 12:00 Temperature 97.2 F L Pulse Rate 77 70 Respiratory Rate 19 Blood Pressure 148/87 H Pulse Oximetry 98 Oxygen Delivery Room Air 12/18/22 16:00 12/18/22 19:53 12/18/22 21:26 Temperature 97.6 F 98.5 F Pulse Rate 75 76 74 Respiratory Rate 18 20 Blood Pressure 118/65 116/63 Pulse Oximetry 92 97 Oxygen Delivery 12/18/22 21:37 12/18/22 22:11 12/18/22 20:00 Temperature 97.6 F Pulse Rate 79 71 Respiratory Rate 24 H Blood Pressure 175/101 H Pulse Oximetry 95 98 98 Oxygen Delivery Autopap CPAP 12/19/22 00:26 12/18/22 22:00 12/19/22 00:00 Temperature 97.6 F Pulse Rate 71 68 Respiratory Rate 24 H Blood Pressure 142/78 H 172/101 H Pulse Oximetry 98 Oxygen Delivery Autopap 12/18/22 20:00 12/19/22 04:00 12/19/22 06:00 Temperature 97.5 F L Pulse Rate 73 64 71 Respiratory Rate 20 Blood Pressure 135/65 Pulse Oximetry 98 Oxygen Delivery Intake/Output Intake/Output: Intake & Output 12/16/22 12/17/22 12/18/22 12/19/22 23:59 23:59 23:59 23:59 Intake Total 510 440 Output Total 1475 Balance -965 440 Meds/Results Medications: Active Medications Generic Name Dose
[2022-12-19] MEDS: INSULIN ASPART (*BKC) 100 UNITS/ML 22 UNITS SUB-Q ×3 (09:16→17:58)
[2022-12-19] MEDS: INSULIN GLARGINE (*BKC) 100 UNITS/ML 50 UNITS SUB-Q (09:16)
[2022-12-19] MEDS: MORPHINE SULFATE (*CRX) 2 MG/ML INJ IV PUSH ×4 (09:18→21:07)
[2022-12-19] MEDS: oxyBUTYnin CHLORIDE XL 5 MG TAB.ER.24 15 MG PO (09:18)
--- NOTE | 2022-12-19 10:33 | WPDNEURCNPN ---
Assessment and Plan Assessment and plan (1) Post concussion syndrome: Code(s): F07.81 - Postconcussional syndrome Status: Acute (2) Headache: Code(s): R51.9 - Headache, unspecified Status: Acute (3) Right sided weakness: Code(s): R53.1 - Weakness Status: Acute Plan Karly Marques is a 67 year old female with a history of DVT/PE on anticoagulation, breast cancer, CHF, chroinc back pain, DM, HTN, RLS presenting with headache after sustaining a fall. Likely, post-concussive in etiology, but does not explain the R sided weakness. - MRI brain and MRV brain -- cannot be done at [place] due to MR capabilities; if symptoms do not improve may need to transfer for imaging - Give Depakote 500mg x 1, can repeat dose if no relief - Avoid narcotics - Patient is on amitriptyline 25mg qhs right now -- can increase to 50mg qhs. Consult date: 12/19/22 Reason for consult: Headaches HPI: Karly Marques is a 67 year old female with a history of DVT/PE on anticoagulation, breast cancer, CHF, chroinc back pain, DM, HTN, RLS presenting with headache after sustaining a fall. Last week, patient was doing yard work, when she was pulling weeds. She lost her balance, fell backwards, and hit the back of her head on brick edging. She did not lose consciousness at that time. She initially presented to [facility] where she had CT of the head, neck, and spine that were reportedly unrevealing. Since then she has had a constant pain from the upper back extending to the neck, back of the head, and bitemporal region. She also has photophobia and twitching of the right eyelid. She has tried Tylenol and hydrocodone for the pain but has not gotten any relief. She also has had a few episodes of emesis in the past week. She noted that she is dropping things from her right hand which is atypical for her. She also reports weakness of the right leg. She prented to [place] due to persistence of her symptoms. Repeat CT head was unrevealing. CT cervical spine showed mild levoscoliosis and moderate cervical spondylosis. Neurosurgery was called given patient's weakness. They recommend Cervical XR which showed approximately 2mm C4/5 anterolisthesis, which appears to be a chronic finding. She has received migraine cocktails during this admission, although continues to have severe headaches. Review of Systems Constitutional: Constitutional: Denies chills, Denies fever(s) and Denies weight loss Eyes: Eyes: Reports blurry vision, Denies diplopia, Denies loss of vision and Reports photophobia ENT: Denies dizziness, Denies hearing loss and Denies tinnitus Cardiovascular: Cardiovascular: Denies chest pain, Denies syncope and Denies dyspnea Respiratory: Respiratory: Denies cough, Denies dyspnea and Denies wheezing Gastrointestinal: Gastrointestinal: Denies abdominal pain, Denies change in bowel habits and Denies vomiting Genitourinary: Genitourinary: Denies urinary incontinence Musculoskeletal: Musculoskeletal: Reports back pain, Reports myalgias, Reports arthralgias, Denies joint swelling, Reports neck pain and Reports stiffness Integumentary/Breasts: Skin/Breast: Denies new lesions and Denies rash Neurologic: Reports as per HPI, Denies dizziness, Denies syncope, Reports headache(s) and Denies loss of vision Psychiatric: Psychiatric: Denies anxiety and Denies depression Endocrine: Endocrine: Denies cold intolerance and Denies heat intolerance Hematologic/Lymphatic: Hematologic/Lymphatic: Denies easy bleeding and Denies easy bruising Allergic/Immunologic: Allergic/Immunologic: Denies no additional allergic/immunologic complaints and Denies wheezing PMFSH Past Medical History Medical History Anxiety Breast cancer Chronic anticoagulation Chronic back pain Collagenous colitis Congestive heart failure COVID-19 Deep venous thrombosis Depression Irritable bowel syndrome Ki
[2022-12-19 11:38] LABS: Glucose Point of Care 113 mg/dl (65-105)
[2022-12-19] MEDS: VALPROIC ACID INJ 500 MG in DEXTROSE 5% 100 ML 100 MG IVPB (12:50)
[2022-12-19] MEDS: hydrALAZINE HCL 20 MG/ML VIAL 10 MG IV PUSH (13:07)
[2022-12-19 16:55] LABS: Glucose Point of Care 190 mg/dl (65-105)
--- NOTE | 2022-12-19 20:03 | PHAR ---
PT'S HOME MED METHENAMINE HIPPURATE 1 GM TABLETS HAS BEEN VERIFIED BY PHARMACY
[2022-12-19] MEDS: rOPINIRole HCL 1 MG TABLET 5 MG PO (21:05)
[2022-12-19] MEDS: AMITRIPTYLINE HCL 25 MG TABLET 50 MG PO (21:05)
[2022-12-19 21:43] LABS: Glucose Point of Care 118 mg/dl (65-105)
[2022-12-20] VITALS (8 sets, daily range): BP systolic 128–138; BP diastolic 72–84; PULSE 67–106; RESP 14; TEMP 36.3–36.5; O2SAT 94–98
[2022-12-20] MEDS: HYDROcodone/acetaminophen (*CRX) 10-325 MG TABLET 1 TAB PO ×2 (00:12→20:59)
[2022-12-20] MEDS: MORPHINE SULFATE (*CRX) 2 MG/ML INJ IV PUSH ×5 (03:01→22:14)
[2022-12-20] MEDS: ONDANSETRON INJ 4 MG/2 ML VIAL IV PUSH ×2 (03:10→15:14)
[2022-12-20] MEDS: INSULIN ASPART (*BKC) 100 UNITS/ML 22 UNITS SUB-Q ×3 (08:19→16:52)
[2022-12-20] MEDS: INSULIN GLARGINE (*BKC) 100 UNITS/ML 50 UNITS SUB-Q (08:22)
[2022-12-20 08:24] LABS: Glucose Point of Care 154 mg/dl (65-105)
[2022-12-20] MEDS: oxyBUTYnin CHLORIDE XL 5 MG TAB.ER.24 15 MG PO (08:29)
[2022-12-20] MEDS: diphenhydrAMINE HCl INJ 50 MG/ML VIAL IV PUSH ×3 (09:54→23:53)
--- NOTE | 2022-12-20 10:25 | PM.IMPN ---
Progress Note: A&P Assessment and Plan (1) Right sided weakness: Code(s): R53.1 - Weakness Status: Acute Assessment and Plan: Could be secondary to complex migraine, give toradol + reglan + benadryl x 1, patient refused reglan, gave pheneragn instead Appreciate neurology consultation, pending 12/19: unchanged CAZARES, depakote x 1 12/20: improved, transfer pending for MRI (2) Headache: Code(s): R51.9 - Headache, unspecified Status: Acute Assessment and Plan: Unable to do MRI, consider CTA, defer to neuro (3) Neck pain: Code(s): M54.2 - Cervicalgia Status: Acute (4) Type 2 diabetes mellitus: Code(s): E11.9 - Type 2 diabetes mellitus without complications Status: Acute Assessment and Plan: Blood glucose reviewed 12/20 Accu-Cheks, sliding scale insulin, A1c 8.7 (5) Obstructive sleep apnea on CPAP: Code(s): G47.33 - Obstructive sleep apnea (adult) (pediatric) Status: Acute Assessment and Plan: CPAP as needed while sleeping (6) Chronic back pain: Code(s): M54.9 - Dorsalgia, unspecified; G89.29 - Other chronic pain Status: Acute Assessment and Plan: Chronic opiate dependence secondary to chronic back pain (7) Chronic anticoagulation: Code(s): Z79.01 - residential (current) use of anticoagulants Status: Acute (8) Restless leg syndrome: Code(s): G25.81 - Restless legs syndrome Status: Acute Plan Trying to arrange transfer to [facility] for MRI DVT prophylaxis with SCDs GI prophylaxis not indicated Code status full code Subjective Date/time seen: 12/20/22 10:25 Interval history: 67-year-old female with multiple medical problems including breast cancer, heart failure, diabetes is presenting with suspected complex migraine. No overnight events noted. No chest pain or shortness of breath. No nausea, vomiting or diarrhea. No fevers or chills. Patient is c/o severe headache that starts in the back of her head and radiates around her whole head and causes vision changes and light sensitivity. She states it feels about the same today as yesterday. 12/20: Patient states her CAZARES feels a little better than yesterday. No overnight events noted. No chest pain or shortness of breath. No nausea, vomiting or diarrhea. No fevers or chills. Review of Systems Review of Systems: 12 point review of systems was assessed and was negative except as noted in the HPI Exam Narrative: General: No acute distress, alert and oriented per baseline HEENT: Atraumatic, normocephalic, mucous membranes moist CV: Regular rate and rhythm, S1, S2 Lungs: Clear to auscultation bilaterally, no rales or crackles noted, no wheezes, good air entry Abdomen: Soft, nontender, nondistended Extremities: Normal to inspection Skin: No rashes noted, no lesions or wounds seen Psych: Euthymic, normal affect Neuro: Cranial nerves 2-12 grossly intact, strength +5/5 upper and lower extremities bilaterally Objective Data Vital Signs Vital Signs: Vital Signs - 24 hr 12/19/22 12:42 12/19/22 14:00 12/19/22 12:00 Temperature 97.8 F 98.2 F Pulse Rate 90 98 102 H Respiratory Rate 16 19 Blood Pressure 178/103 H 145/65 H Pulse Oximetry 100 96 Oxygen Delivery 12/19/22 16:00 12/19/22 20:00 12/19/22 20:00 Temperature Pulse Rate 72 87 Respiratory Rate Blood Pressure Pulse Oximetry Oxygen Delivery Room Air 12/20/22 00:00 12/19/22 22:00 12/19/22 23:30 Temperature 97.3 F L Pulse Rate 80 83 Respiratory Rate 16 Blood Pressure 183/85 H 144/86 H Pulse Oximetry 100 Oxygen Delivery 12/20/22 04:00 12/20/22 06:00 Temperature 97.4 F L Pulse Rate 73 67 Respiratory Rate 14 Blood Pressure 138/76 Pulse Oximetry 98 Oxygen Delivery Intake/Output Intake/Output: Intake & Output 12/17/22 12/18/22 12/19/22 12/20/22 23:59 23:59 23:59 23:59 Intake
[2022-12-20 11:34] LABS: Glucose Point of Care 115 mg/dl (65-105)
[2022-12-20] MEDS: VALPROIC ACID INJ 500 MG in DEXTROSE 5% 100 ML 100 MG IVPB (15:32)
[2022-12-20 16:43] LABS: Glucose Point of Care 124 mg/dl (65-105)
[2022-12-20] MEDS: rOPINIRole HCL 1 MG TABLET 5 MG PO (21:01)
[2022-12-20] MEDS: AMITRIPTYLINE HCL 25 MG TABLET 50 MG PO (21:01)
[2022-12-20 21:13] LABS: Glucose Point of Care 78 mg/dl (65-105)
[2022-12-20 21:44] LABS: Glucose Point of Care 130 mg/dl (65-105)
[2022-12-21] MEDS: MORPHINE SULFATE (*CRX) 2 MG/ML INJ IV PUSH ×2 (01:53→06:03)
[2022-12-21] MEDS: ACETAMINOPHEN 325 MG TABLET 650 MG PO (01:53)
--- NOTE | 2022-12-21 02:13 | PC.NURSE ---
pt states her cancer medication causes blood clots, which she has had multiple of. Pt expressed concern about Xarelto being on hold. Pt agreeable to wear SCDs
[2022-12-21 06:11] VITALS: BP 150/88
[2022-12-21 06:30] VITALS: BP 177/93; PULSE 72; RESP 16; TEMP 36.1; O2SAT 98
[2022-12-21 07:47] LABS: Glucose Point of Care 124 mg/dl (65-105)
[2022-12-21] MEDS: INSULIN ASPART (*BKC) 100 UNITS/ML 22 UNITS SUB-Q ×3 (08:35→17:20)
[2022-12-21] MEDS: INSULIN GLARGINE (*BKC) 100 UNITS/ML 50 UNITS SUB-Q (08:36)
[2022-12-21] MEDS: oxyBUTYnin CHLORIDE XL 5 MG TAB.ER.24 15 MG PO (08:37)
[2022-12-21] MEDS: HYDROcodone/acetaminophen (*CRX) 10-325 MG TABLET 1 TAB PO ×3 (09:02→22:36)
[2022-12-21] MEDS: diphenhydrAMINE HCl INJ 50 MG/ML VIAL IV PUSH (09:05)
[2022-12-21 09:09] LABS: Glucose Point of Care 225 mg/dl (65-105)
[2022-12-21 11:45] LABS: Glucose Point of Care 124 mg/dl (65-105)
--- NOTE | 2022-12-21 11:59 | PM.IMPN ---
Progress Note: A&P Assessment and Plan (1) Right sided weakness: Code(s): R53.1 - Weakness Status: Acute Assessment and Plan: Could be secondary to complex migraine, Appreciate neurology input. Increased amitriptyline 50 mg q.h.s.. Will discontinue IV pain medications and continue on oral pain medications. Patient counseled on opioid overdose. Continue valproic acid p.r.n. (2) Headache: Code(s): R51.9 - Headache, unspecified Status: Acute Assessment and Plan: Unable to do MRI, transfer pending for MRI (3) Neck pain: Code(s): M54.2 - Cervicalgia Status: Acute Assessment and Plan: Chronic (4) Type 2 diabetes mellitus: Code(s): E11.9 - Type 2 diabetes mellitus without complications Status: Acute Assessment and Plan: Blood glucose reviewed 12/20 Accu-Cheks, sliding scale insulin, A1c 8.7 (5) Obstructive sleep apnea on CPAP: Code(s): G47.33 - Obstructive sleep apnea (adult) (pediatric) Status: Acute Assessment and Plan: CPAP as needed while sleeping (6) Chronic back pain: Code(s): M54.9 - Dorsalgia, unspecified; G89.29 - Other chronic pain Status: Acute Assessment and Plan: Chronic opiate dependence secondary to chronic back pain (7) Chronic anticoagulation: Code(s): 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 Status: Acute (8) Restless leg syndrome: Code(s): G25.81 - Restless legs syndrome Status: Acute Subjective Date/time seen: 12/21/22 11:59 Interval history: Patient still reports headache also has chronic backache Review of Systems Review of Systems: 12 point review of systems was assessed and was negative except as noted in the HPI Exam Narrative: General: No acute distress, alert and oriented per baseline HEENT: Atraumatic, normocephalic, mucous membranes moist CV: Regular rate and rhythm, S1, S2 Lungs: Clear to auscultation bilaterally, no rales or crackles noted, no wheezes, good air entry Abdomen: Soft, nontender, nondistended Extremities: Normal to inspection Skin: No rashes noted, no lesions or wounds seen Psych: Euthymic, normal affect Neuro: Cranial nerves 2-12 grossly intact, strength +5/5 upper and lower extremities bilaterally Objective Data Vital Signs Vital Signs: Vital Signs - 24 hr 12/20/22 14:00 12/20/22 12:00 12/20/22 21:16 Temperature 97.7 F 97.7 F Pulse Rate 83 80 97 Respiratory Rate 14 14 Blood Pressure 128/72 136/84 Pulse Oximetry 95 94 Oxygen Delivery 12/20/22 20:00 12/20/22 21:50 12/21/22 06:11 Temperature Pulse Rate Respiratory Rate Blood Pressure 150/88 H Pulse Oximetry 94 Oxygen Delivery Room Air Room Air 12/21/22 06:30 Temperature 96.9 F L Pulse Rate 72 Respiratory Rate 16 Blood Pressure 177/93 H Pulse Oximetry 98 Oxygen Delivery Intake/Output Intake/Output: Intake & Output 12/18/22 12/19/22 12/20/22 12/21/22 23:59 23:59 23:59 23:59 Intake Total 510 / 510 1680 / 1680 1247 / 1247 440 / 440 Output Total 1475 / 1475 1000 / 1000 1700 / 1700 450 / 450 Balance -965 / -965 680 / 680 -453 / -453 -10 / -10 Meds/Results Medications: Active Medications Generic Name Dose Route Start Last Admin Trade Name Freq PRN Reason Stop Dose Admin Acetaminophen 650 mg 12/17/22 20:42 12/21/22 01:53 Acetaminophen 325 Mg Tablet PO 650 mg Q6H PRN Administration Mild Pain (1-3) or Fever Hydrocodone Bitart/Acetaminophen 1 tab 12/21/22 09:55 Hydrocodone/Acetaminophen (*Crx) 10-325 Mg Tablet PO Q4H PRN Pain 4-10 Albuterol 1 puff 12/18/22 14:15 Albuterol Sulfate (*Sp) Aerosol 1 Puff INHALATION QID PRN shortness of breath or wheezing Amitriptyline HCl 50 mg 12/19/22 21:00 12/20/22 21:01 Amitriptyline Hcl 25 Mg Tablet PO 50 mg HS RODERICK Administration Dextrose 12.5 gm 12/17/22 20:42
[2022-12-21 12:50] VITALS: BP 111/65; PULSE 83
[2022-12-21 14:00] VITALS: BP 137/76; PULSE 77; RESP 14; TEMP 36.6; O2SAT 94
[2022-12-21 16:30] LABS: Glucose Point of Care 101 mg/dl (65-105)
[2022-12-21] MEDS: fentaNYL (*CRX) 25 MCG PATCH TRANSDERM (17:11)
[2022-12-21] MEDS: AMITRIPTYLINE HCL 25 MG TABLET 50 MG PO (21:11)
[2022-12-21] MEDS: rOPINIRole HCL 1 MG TABLET 5 MG PO (21:12)
[2022-12-21 22:00] VITALS: BP 143/77; PULSE 88; RESP 18; TEMP 36.1; O2SAT 97
[2022-12-21 22:35] VITALS: BP 130/80; PULSE 83
[2022-12-21 22:36] LABS: Glucose Point of Care 103 mg/dl (65-105)
[2022-12-22] VITALS (9 sets, daily range): BP systolic 107–149; BP diastolic 53–90; PULSE 75–96; RESP 14–23; TEMP 36–36.6; O2SAT 92–99
[2022-12-22] MEDS: HYDROcodone/acetaminophen (*CRX) 10-325 MG TABLET 1 TAB PO ×3 (04:09→20:21)
[2022-12-22 08:03] LABS: Glucose Point of Care 139 mg/dl (65-105)
--- NOTE | 2022-12-22 08:32 | PM.IMPN ---
Progress Note: A&P Assessment and Plan (1) Right sided weakness: Code(s): R53.1 - Weakness Status: Acute Assessment and Plan: Could be secondary to complex migraine, Appreciate neurology input. Increased amitriptyline 50 mg q.h.s.. continue on oral pain medications. Patient counseled on opioid overdose. Continue valproic acid p.r.n. Patient denies new focal weakness, vision change (2) Headache: Code(s): R51.9 - Headache, unspecified Status: Acute Assessment and Plan: nina Marques is a 67 year old female with a history of DVT/PE on anticoagulation, breast cancer, CHF, chroinc back pain, DM, HTN, RLS presenting with headache after sustaining a fall. Likely, post-concussive in etiology, but does not explain the R sided weakness. The [facility] weakness improving, patient denies new focal weakness Unable to do MRI, transfer pending for MRI In [facility] (3) Neck pain: Code(s): M54.2 - Cervicalgia Status: Acute Assessment and Plan: Chronic (4) Type 2 diabetes mellitus: Code(s): E11.9 - Type 2 diabetes mellitus without complications Status: Acute Assessment and Plan: Blood glucose reviewed 12/20 Accu-Cheks, sliding scale insulin, A1c 8.7 (5) Obstructive sleep apnea on CPAP: Code(s): G47.33 - Obstructive sleep apnea (adult) (pediatric) Status: Acute Assessment and Plan: CPAP as needed while sleeping (6) Chronic back pain: Code(s): M54.9 - Dorsalgia, unspecified; G89.29 - Other chronic pain Status: Acute Assessment and Plan: Chronic opiate dependence secondary to chronic back pain (7) Chronic anticoagulation: Code(s): Z79.01 - [facility] (current) use of anticoagulants Status: Acute (8) Restless leg syndrome: Code(s): G25.81 - Restless legs syndrome Status: Acute Subjective Date/time seen: 12/22/22 08:32 Interval history: Patient still reports headache also has chronic backache, the patient's locating right-sided head and neck. Patient denies vision change, new focal weakness. Patient has no new issue even over the night Exam Narrative: General: No acute distress, alert and oriented per baseline HEENT: Atraumatic, normocephalic, mucous membranes moist CV: Regular rate and rhythm, S1, S2 Lungs: Clear to auscultation bilaterally, no rales or crackles noted, no wheezes, good air entry Abdomen: Soft, nontender, nondistended Extremities: Normal to inspection Skin: No rashes noted, no lesions or wounds seen Psych: Euthymic, normal affect Neuro: Cranial nerves 2-12 grossly intact, strength +5/5 upper and lower extremities bilaterally Objective Data Vital Signs Vital Signs: Vital Signs - 24 hr 12/21/22 08:35 12/21/22 14:00 12/21/22 12:50 Temperature 98 F Pulse Rate 77 83 Respiratory Rate 14 Blood Pressure 137/76 111/65 Pulse Oximetry 94 Oxygen Delivery Room Air 12/21/22 22:35 12/21/22 22:00 12/22/22 01:35 Temperature 96.9 F L Pulse Rate 83 88 84 Respiratory Rate 18 15 Blood Pressure 130/80 143/77 H Pulse Oximetry 97 96 Oxygen Delivery Autopap 12/22/22 04:08 12/22/22 06:00 Temperature 97.1 F L Pulse Rate 78 75 Respiratory Rate 14 Blood Pressure 149/89 H 140/90 Pulse Oximetry 99 Oxygen Delivery Intake/Output Intake/Output: Intake & Output 12/19/22 12/20/22 12/21/22 12/22/22 23:59 23:59 23:59 23:59 Intake Total 1680 1247 1124 200 Output Total 1000 1700 450 Balance 680 -453 674 200 Meds/Results Medications: Active Medications Generic Name Dose Route Start Last Admin Trade Name Freq PRN Reason Stop Dose Admin Acetaminophen 650 mg 12/17/22 20:42 12/21/22 01:53 Acetaminophen 325 Mg Tablet PO 650 mg Q6H PRN Administration Mild Pain (1-3) or Fever Hydrocodone Bitart/Acetaminophen 1 tab 12/21/22 09:55 12/22/22 04:09 Hydrocodone/Acetaminophen (*Crx) 10-325 Mg
[2022-12-22] MEDS: oxyBUTYnin CHLORIDE XL 5 MG TAB.ER.24 15 MG PO (08:52)
[2022-12-22] MEDS: LOSARTAN POTASSIUM 50 MG TABLET PO (08:53)
[2022-12-22 11:52] LABS: Glucose Point of Care 229 mg/dl (65-105)
--- NOTE | 2022-12-22 11:53 | WPDNEUROPN ---
Progress Note: A&P Assessment and Plan (1) Post concussion syndrome: Code(s): F07.81 - Postconcussional syndrome Status: Acute (2) Neck pain: Code(s): M54.2 - Cervicalgia Status: Acute (3) Headache: Code(s): R51.9 - Headache, unspecified Status: Acute (4) Right sided weakness: Code(s): R53.1 - Weakness Status: Acute Plan Karly Marques is a 67 year old female with a history of DVT/PE on anticoagulation, breast cancer, CHF, chronic back pain, DM, HTN, RLS presenting with headache after sustaining a fall. Likely, post-concussive in etiology, but does not explain the R sided weakness. - MRI brain and MRV brain -- awaiting transfer - Can schedule 1depakote 500mg BID x 3 days - Can consider short course of steroids if headaches worsen - Amitriptyline increased to 50mg daily Subjective Date/time seen: 12/22/22 11:53 Interval history: Karly Marques is a 67 year old female with a history of DVT/PE on anticoagulation, breast cancer, CHF, chronic back pain, DM, HTN, RLS presenting with headache after sustaining a fall. Last week, patient was doing yard work, when she was pulling weeds. She lost her balance, fell backwards, and hit the back of her head on brick edging. She did not lose consciousness at that time. She initially presented to [facility] where she had CT of the head, neck, and spine that were reportedly unrevealing. Since then she has had a constant pain from the upper back extending to the neck, back of the head, and bitemporal region. She also has photophobia and twitching of the right eyelid. She has tried Tylenol and hydrocodone for the pain but has not gotten any relief. She also has had a few episodes of emesis in the past week. She noted that she is dropping things from her right hand which is atypical for her. She also reports weakness of the right leg. She presented to [facility] due to persistence of her symptoms. Repeat CT head was unrevealing. CT cervical spine showed mild levoscoliosis and moderate cervical spondylosis. Neurosurgery was called given patient's weakness. They recommend Cervical XR which showed approximately 2mm C4/5 anterolisthesis, which appears to be a chronic finding. She has received migraine cocktails during this admission, although continued to have severe headaches. She is awaiting transfer to tertiary care center for MRI. She was given PRN doses of VPA 500mg which seemed to help. Her headache has improved, but now she is complaining of neck pain. She has been given a fentanyl patch for that. Review of Systems Constitutional: Constitutional: Denies chills, Denies fever(s) and Denies weight loss Eyes: Eyes: Reports blurry vision, Denies diplopia, Denies loss of vision and Reports photophobia ENT: Denies dizziness, Denies hearing loss and Denies tinnitus Cardiovascular: Cardiovascular: Denies chest pain, Denies syncope and Denies dyspnea Respiratory: Respiratory: Denies cough, Denies dyspnea and Denies wheezing Gastrointestinal: Gastrointestinal: Denies abdominal pain, Denies change in bowel habits and Denies vomiting Genitourinary: Genitourinary: Denies urinary incontinence Musculoskeletal: Musculoskeletal: Reports back pain, Reports myalgias, Reports arthralgias, Denies joint swelling, Reports neck pain and Reports stiffness Integumentary/Breasts: Skin/Breast: Denies new lesions and Denies rash Neurologic: Reports as per HPI, Denies dizziness, Denies syncope, Reports headache(s) and Denies loss of vision Psychiatric: Psychiatric: Denies anxiety and Denies depression Endocrine: Endocrine: Denies cold intolerance and Denies heat intolerance Hematologic/Lymphatic: Hematologic/Lymphatic: Denies easy bleeding and Denies easy bruising Allergic/Immunologic: Allergic/Immunologic: Denies no additional allergic/immunologic complaints and Denies wheezing Exam Const: General: comfortable and no acute distress HENMT: Mouth:
[2022-12-22] MEDS: INSULIN ASPART (*BKC) 100 UNITS/ML SUB-Q ×2 (12:11→17:07)
[2022-12-22] MEDS: diphenhydrAMINE HCl CAP 25 MG CAPSULE 50 MG PO ×2 (12:54→20:21)
[2022-12-22] MEDS: VALPROIC ACID 250 MG CAPSULE 500 MG PO (17:11)
[2022-12-22 18:01] LABS: Glucose Point of Care 227 mg/dl (65-105)
[2022-12-22] MEDS: rOPINIRole HCL 1 MG TABLET 5 MG PO (20:20)
[2022-12-22] MEDS: AMITRIPTYLINE HCL 25 MG TABLET 50 MG PO (20:21)
[2022-12-22 21:09] LABS: Glucose Point of Care 193 mg/dl (65-105)
[2022-12-23] VITALS: BP 116/79; PULSE 82; RESP 18; TEMP 36; O2SAT 98
[2022-12-23 00:04] LABS: Glucose Point of Care 171 mg/dl (65-105)
[2022-12-23] MEDS: ONDANSETRON HCL ODT 4 MG TABLET PO (00:11)
[2022-12-23] MEDS: hydrOXYzine HCL 10 MG TABLET PO ×2 (04:57→14:51)
[2022-12-23 05:09] VITALS: BP 146/79; PULSE 84; RESP 20; TEMP 35.6; O2SAT 97
[2022-12-23 07:20] LABS: D Dimer 0.89 ug/mL (<0.48)
[2022-12-23 07:38] LABS: Glucose Point of Care 165 mg/dl (65-105)
[2022-12-23 08:00] VITALS: PULSE 88; RESP 16; O2SAT 97
[2022-12-23] MEDS: oxyBUTYnin CHLORIDE XL 5 MG TAB.ER.24 15 MG PO (09:01)
[2022-12-23 09:11] VITALS: BP 131/73; PULSE 88; RESP 16; O2SAT 97
[2022-12-23] MEDS: LOSARTAN POTASSIUM 50 MG TABLET PO (09:13)
[2022-12-23] MEDS: HYDROcodone/acetaminophen (*CRX) 10-325 MG TABLET 1 TAB PO ×2 (09:19→16:29)
[2022-12-23 11:29] LABS: Glucose Point of Care 188 mg/dl (65-105)
--- NOTE | 2022-12-23 12:44 | PM.IMPN ---
Progress Note: A&P Assessment and Plan (1) Right sided weakness: Code(s): R53.1 - Weakness Status: Acute Assessment and Plan: Could be secondary to complex migraine, Appreciate neurology input. Increased amitriptyline 50 mg q.h.s.. continue on oral pain medications. Patient counseled on opioid overdose. Continue valproic acid p.r.n. Patient denies new focal weakness, vision change (2) Headache: Code(s): R51.9 - Headache, unspecified Status: Acute Assessment and Plan: nina Marques is a 67 year old female with a history of DVT/PE on anticoagulation, breast cancer, CHF, chroinc back pain, DM, HTN, RLS presenting with headache after sustaining a fall. Likely, post-concussive in etiology, but does not explain the R sided weakness. The SLU weakness improving, patient denies new focal weakness Unable to do MRI, transfer pending for MRI In [facility] I discussed the case with neurologist and [facility] yesterday, neurologist accepted the patient, patient is on waiting list (3) Neck pain: Code(s): M54.2 - Cervicalgia Status: Acute Assessment and Plan: Chronic (4) Type 2 diabetes mellitus: Code(s): E11.9 - Type 2 diabetes mellitus without complications Status: Acute Assessment and Plan: Blood glucose reviewed 12/20 Accu-Cheks, sliding scale insulin, A1c 8.7 (5) Obstructive sleep apnea on CPAP: Code(s): G47.33 - Obstructive sleep apnea (adult) (pediatric) Status: Acute Assessment and Plan: CPAP as needed while sleeping (6) Chronic back pain: Code(s): M54.9 - Dorsalgia, unspecified; G89.29 - Other chronic pain Status: Acute Assessment and Plan: Chronic opiate dependence secondary to chronic back pain (7) Chronic anticoagulation: Code(s): 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 Patient denies vision change, new focal weakness. Patient has no new issue even over the night Exam Narrative: General: No acute distress, alert and oriented per baseline HEENT: Atraumatic, normocephalic, mucous membranes moist CV: Regular rate and rhythm, S1, S2 Lungs: Clear to auscultation bilaterally, no rales or crackles noted, no wheezes, good air entry Abdomen: Soft, nontender, nondistended Extremities: Normal to inspection Skin: No rashes noted, no lesions or wounds seen Psych: Euthymic, normal affect Neuro: Cranial nerves 2-12 grossly intact, strength +5/5 upper and lower extremities bilaterally Objective Data Vital Signs Vital Signs: Vital Signs - 24 hr 12/22/22 14:00 12/22/22 21:12 12/22/22 20:00 Temperature 97.9 F 96.8 F L Pulse Rate 86 96 Respiratory Rate 18 18 Blood Pressure 114/53 L 107/61 Pulse Oximetry 95 96 Oxygen Delivery Room Air 12/22/22 22:53 12/23/22 00:00 12/23/22 05:09 Temperature 96.8 F L 96.1 F L Pulse Rate 82 84 Respiratory Rate 23 H 18 20 Blood Pressure 116/79 146/79 H Pulse Oximetry 98 97 Oxygen Delivery Autopap 12/23/22 09:11 12/23/22 08:00 Temperature Pulse Rate 88 88 Respiratory Rate 16 16 Blood Pressure 131/73 Pulse Oximetry 97 97 Oxygen Delivery Room Air Intake/Output Intake/Output: Intake & Output 12/20/22 12/21/22 12/22/22 12/23/22 23:59 23:59 23:59 23:59 Intake Total 1247 1124 2600 640 Output Total 1700 450 Balance -230 115 5769 640 Meds/Results Medications: Active Medications Generic Name Dose Route Start Last Admin Trade Name Freq PRN Reason Stop Dose Admin Acetaminophen 650 mg 12/17/22 20:42 12/21/22 01:53 Acetaminophen 325 Mg Tablet PO 650 mg Q6H PRN Administration Mild Pain (1-3) or Fever
[2022-12-23 14:00] VITALS: BP 130/79; PULSE 93; RESP 18; TEMP 36.3; O2SAT 94
[2022-12-23 16:51] LABS: Glucose Point of Care 160 mg/dl (65-105)
--- NOTE | 2022-12-23 19:36 | PC.NURSE ---
12/23/[id number] called report to Sara at [facility] on neuro floor 5, denies any further questions. Patient transferring for MRI, patient is stable, denies pain at this time. informed night RN Jimmie of transfer, he is aware of home meds to be given to patient before EMS arrives. all forms signed by patient, agreeing to be transferred to [facility]. accepting MD is DR Rodriguez
[2022-12-23] MEDS: AMITRIPTYLINE HCL 25 MG TABLET 50 MG PO (20:04)
[2022-12-23] MEDS: rOPINIRole HCL 1 MG TABLET 5 MG PO (20:04)
[2022-12-23] MEDS: oxyCODONE HCL (*CRX) 5 MG TAB IR PO (20:08)
[2022-12-23] MEDS: INSULIN ASPART (*BKC) 100 UNITS/ML SUB-Q (20:11)
[2022-12-23 21:03] LABS: Glucose Point of Care 218 mg/dl (65-105)
--- NOTE | 2022-12-27 15:25 | PM.TDS ---
Transfer Discharge Sum: Prov Provider Date of admission: 12/19/22 13:03 Primary care physician: Justen Gale, MD Admitting clinician: Justen Quevedo MD Consults: 12/19/22 Consult to Physician Routine Comment: Spoke to 12.19.22 @ 0855--/us Consulting Provider: Tessa Oscar call center support consultant/MD group to consult: neurology Reason for consultation: migraine, severe, new onset Has provider been notified: Yes DS: Admitting Diagnosis Discharge Date 12/23/22 Admitting Diagnosis Right sided weakness: ?Code(s): R53.1 - Weakness ?Status:?Acute DS: Discharge Diagnosis Discharge Diagnosis (1) Right sided weakness: Code(s): R53.1 - Weakness Status: Acute Assessment and Plan: Could be secondary to complex migraine, Appreciate neurology input. Increased amitriptyline 50 mg q.h.s.. continue on oral pain medications. Patient counseled on opioid overdose. Continue valproic acid p.r.n. Patient denies new focal weakness, vision change (2) Headache: Code(s): R51.9 - Headache, unspecified Status: Acute Assessment and Plan: nina Marques is a 67 year old female with a history of DVT/PE on anticoagulation, breast cancer, CHF, chroinc back pain, DM, HTN, RLS presenting with headache after sustaining a fall. Likely, post-concussive in etiology, but does not explain the R sided weakness. The SLU weakness improving, patient denies new focal weakness Unable to do MRI, transfer pending for MRI In [facility] I discussed the case with neurologist and [facility] yesterday, neurologist accepted the patient, patient is on waiting list (3) Neck pain: Code(s): M54.2 - Cervicalgia Status: Acute Assessment and Plan: Chronic (4) Type 2 diabetes mellitus: Code(s): E11.9 - Type 2 diabetes mellitus without complications Status: Acute Assessment and Plan: Blood glucose reviewed 12/20 Accu-Cheks, sliding scale insulin, A1c 8.7 (5) Obstructive sleep apnea on CPAP: Code(s): G47.33 - Obstructive sleep apnea (adult) (pediatric) Status: Acute Assessment and Plan: CPAP as needed while sleeping (6) Chronic back pain: Code(s): M54.9 - Dorsalgia, unspecified; G89.29 - Other chronic pain Status: Acute Assessment and Plan: Chronic opiate dependence secondary to chronic back pain (7) Chronic anticoagulation: Code(s): Z79.01 - [facility] (current) use of anticoagulants Status: Acute (8) Restless leg syndrome: Code(s): G25.81 - Restless legs syndrome Status: Acute Transfer Discharge Sum: Med Medications Active and Home Medications: Home Medications amitriptyline 25 mg tablet 25 mg PO HS 01/06/20 [History Confirmed 12/17/22] exemestane 25 mg tablet 25 mg PO HS 01/06/20 [History Confirmed 12/17/22] insulin glargine 100 unit/mL (3 mL) subcutaneous pen (Lantus Solostar U-100 Insulin) 50 unit subcut QAM 01/06/20 [History Confirmed 12/17/22] rivaroxaban 20 mg tablet (Xarelto) 20 mg PO DAILY 01/06/20 [History Confirmed 12/17/22] ropinirole 5 mg tablet 5 mg PO HS 01/06/20 [History Confirmed 12/17/22] insulin lispro 100 unit/mL subcutaneous pen (Humalog KwikPen (U-100) Insulin) 22 unit subcut TID 03/19/22 [History Confirmed 12/17/22] methenamine hippurate 1 gram tablet 1 g PO BID 07/19/22 [History Confirmed 12/17/22] albuterol sulfate 90 mcg/actuation aerosol inhaler 1 inh inhalation QID PRN shortness of breath or wheezing #6.7 grams 09/19/22 [Rx Confirmed 12/17/22] oxybutynin chloride 15 mg tablet,extended release 24 hr 15 mg PO DAILY 11/06/22 [History Confirmed 12/17/22] ondansetron 4 mg disintegrating tablet 4 mg PO Q8H PRN nausea and vomiting #10 tabs 11/29/22 [Rx Confirmed 12/17/22] hydrocodone 10 mg-acetaminophen 325 mg tablet 1 tablet PO Q6-8H PRN Pain 12/17/22 [History Confirmed 12/17/22] Transfer Discharge Sum: Hosp Hospital Course
== END 2022-12-23 20:30 | disposition short-term general hospital (02) | DRG 103 ==
LOC: ANHED 14:46 → ANH3MEDSUR 18:34
PROVIDERS: Family Medicine; Hospitalist; Admitting Provider Chiropractor; Emergency Provider Physician Assistant; PCP Internal Medicine; Visit Provider Student in an Organized Health Care Education/Training Program
DX: G43.809 Other migraine, not intractable, without status migrainosus (principal); Z68.43 Body mass index [BMI] 50.0-59.9, adult; F07.81 Postconcussional syndrome; R53.1 Weakness; H53.141 Visual discomfort, right eye; Z20.822 Contact with and (suspected) exposure to COVID-19; E11.42 Type 2 diabetes mellitus with diabetic polyneuropathy; G47.33 Obstructive sleep apnea (adult) (pediatric); K58.9 Irritable bowel syndrome, unspecified; N32.81 Overactive bladder; G25.81 Restless legs syndrome; E04.1 Nontoxic single thyroid nodule; E66.01 Morbid (severe) obesity due to excess calories; F41.9 Anxiety disorder, unspecified; F32.A Depression, unspecified; D72.829 Elevated white blood cell count, unspecified; E05.90 Thyrotoxicosis, unspecified without thyrotoxic crisis or storm; M54.9 Dorsalgia, unspecified; G89.29 Other chronic pain; Z96.651 Presence of right artificial knee joint; W19.XXXS Unspecified fall, sequela; Z85.3 Personal history of malignant neoplasm of breast; Z86.711 Personal history of pulmonary embolism; Z86.16 Personal history of COVID-19; Z86.718 Personal history of other venous thrombosis and embolism; Z90.49 Acquired absence of other specified parts of digestive tract; Z90.721 Acquired absence of ovaries, unilateral; Z79.01 Long term (current) use of anticoagulants
CPT/HCPCS: 36415; 70450; 71045; 72040; 72125; 80053; 81001; 82948; 83036; 85025; 85380; 87636; 93005; 96361; 96374; 96375; 96376; 99285; A9270; G0378; J0360; J1200; J1815; J1885; J2270; J2405; J2550; L0140

== ENCOUNTER 2023-01-02 14:43 | Emergency (ER) | payer MEDICARE, MEDICAID, SELFPAY ==
[2023-01-02 15:25] VITALS: BP 173/94; PULSE 84; RESP 20; TEMP 36.4; O2SAT 100
--- NOTE | 2023-01-02 16:27 | PC.NURSE ---
pt approached intake desk and states she cannot take the noise and how crowded it is in the waiting room. pt reports she is going home and will come back later.
== END 2023-01-02 16:27 | disposition left against medical advice (07) ==
LOC: ANHED 16:39
PROVIDERS: PCP Internal Medicine
DX: Z53.21 Procedure and treatment not carried out due to patient leaving prior to being seen by health care provider (principal)
CPT/HCPCS: 99199

== ENCOUNTER 2023-01-02 19:04 | Emergency (ER) | payer MEDICARE, MEDICAID, SELFPAY ==
--- NOTE | ~2023-01-02 | CT_ITS ---
EXAMINATION: CT brain wo con DATE: 01/02/2023 20:24 INDICATION: headache/tremors/recent concussion . TECHNIQUE: Computed tomography (CT) of the head was performed without intravenous contrast. The mA wa s adjusted according to patient size. Iterative reconstruction technique was employed. The dose-lengt h product was 605.33 mGy-cm. COMPARISON: 12/17/2022. FINDINGS: No acute intracranial hemorrhage or extra-axial fluid collection. No hydrocephalus, mass, or herniation. No acute ischemic infarct. Unremarkable dural venous sinus attenuation. No acute osseous abnormality. The aerated spaces are clear. Mild atrophy and chronic white matter change. Atherosclerotic intracranial calcification. IMPRESSION: No acute intracranial process. Reviewed, dictated and finalized at location K.
[2023-01-02 19:59] VITALS: BP 160/102; PULSE 86; RESP 15; TEMP 36.6; O2SAT 100
[2023-01-03 01:56] VITALS: BP 134/86; PULSE 80; RESP 14; O2SAT 100
[2023-01-03] MEDS: ONDANSETRON HCL ODT 4 MG TABLET PO (02:38)
[2023-01-03] MEDS: IBUPROFEN 600 MG TABLET PO (02:38)
[2023-01-03 03:02] LABS: Basophils Percent Auto 0.3 % (0.2-1.2); Eosinophils Absolute Auto 0.2 K/mm3 (0-0.3); Eosinophils Percent Auto 2.1 % (0-4.4); Hematocrit 42.8 % (37.0-47.0); Hemoglobin 13.6 g/dL (12.0-15.0); Immature Granulocyte Absolute 0.05 K/mm3 (0.00-0.031); Immature Granulocyte Percent A 0.4 % (0-0.5); Lymphocytes Absolute Auto 2.48 K/mm3 (0.9-3.2); Lymphocytes Percent Auto 21.6 % (18.3-44.2); Mean Corpuscular HGB Conc 31.8 g/dl (32-36); Mean Corpuscular Hemoglobin 28.9 pg (26-34); Mean Corpuscular Volume 91.1 fl (80-100); Mean Platelet Volume 9.7 fl (7.4-10.4); Monocytes Absolute Auto 0.8 K/mm3 (0.1-0.6); Neutrophils Absolute Auto 7.9 K/mm3 (1.3-6.7); Neutrophils Percent Auto 68.6 % (45.5-73.1); Platelet Count Result 273 k/mm3 (150-375); Red Cell Distribution Width 13.7 % (11.5-14.5); White Blood Count 11.5 K/mm3 (4.5-10.0)
[2023-01-03 03:17] LABS: Alanine Aminotransferase 23 U/L (6-35); Albumin Level 4.3 g/dL (3.5-5.1); Alkaline Phosphatase 82 U/L (38-126); Anion Gap 6 mmol/L (8-16); Aspartate Amino Transferase 24 U/L (14-36); Bilirubin,Total 0.8 mg/dL (0.2-1.3); Blood Urea Nitrogen 14 mg/dL (7-17); Calcium 9.6 mg/dL (8.4-10.2); Carbon Dioxide 32 mmol/L (22-30); Chloride 98 mmol/L (98-107); Creatine Kinase 58 U/L (30-135); Estimated CRCL calculation 99 ml/min; Estimated Glomerular Filt Rate > 60; Glucose 197 mg/dL (65-110); Sodium 136 mmol/L (137-145)
--- NOTE | 2023-01-03 04:06 | ED.GENADULT ---
HPI - General Adult General Chief complaint: Headache Stated complaint: headache Time Seen by Provider: 01/03/23 02:14 History of Present Illness HPI narrative: Patient presents to the emergency department from home with multiple flulike symptoms. Generalized body aches and sensations of feeling very hot. Denies recording a temperature at home. Has a headache. She is concerned about tremors. When asked about tremors she said they have been intermittent and started after hitting her head. They had resolved until couple days ago. After she had her head she was transferred to [facility] where imaging was unremarkable. Related Data Home Medications Medication Instructions Recorded Confirmed amitriptyline 25 mg tablet 25 mg PO HS 01/06/20 12/17/22 exemestane 25 mg tablet 25 mg PO HS 01/06/20 12/17/22 insulin glargine 100 unit/mL (3 50 unit subcut QAM 01/06/20 12/17/22 mL) subcutaneous pen (Lantus Solostar U-100 Insulin) rivaroxaban 20 mg tablet (Xarelto) 20 mg PO DAILY 01/06/20 12/17/22 ropinirole 5 mg tablet 5 mg PO HS 01/06/20 12/17/22 insulin lispro 100 unit/mL 22 unit subcut TID 03/19/22 12/17/22 subcutaneous pen (Humalog KwikPen (U-100) Insulin) methenamine hippurate 1 gram tablet 1 g PO BID 07/19/22 12/17/22 oxybutynin chloride 15 mg 15 mg PO DAILY 11/06/22 12/17/22 tablet,extended release 24 hr hydrocodone 10 mg-acetaminophen 1 tablet PO Q6-8H PRN Pain 12/17/22 12/17/22 325 mg tablet Allergies Allergy/AdvReac Type Severity Reaction Status Date / Time ceftriaxone Allergy Severe SOB Verified 01/03/23 01:37 cephalexin Allergy Severe Difficulty Verified 01/03/23 01:37 Breathing Cephalosporins Allergy Severe Difficulty Verified 01/03/23 01:37 Breathing lorazepam Allergy Severe Swelling Verified 01/03/23 01:37 metoclopramide Allergy Intermediate Other Verified 01/03/23 01:37 chlorhexidine Allergy Mild BLISTERING Verified 01/03/23 01:37 levofloxacin Allergy Mild Hives / Verified 01/03/23 01:37 Red Face ketorolac Allergy Itching Verified 01/03/23 01:37 latex Allergy Rash Verified 01/03/23 01:37 nitrofurantoin Allergy Itching Verified 01/03/23 01:37 sulfamethoxazole Allergy Itching Verified 01/03/23 01:37 [From Sulfamethoxazole-Trimethoprim] trazodone Allergy Swelling Verified 01/03/23 01:37 of Lip/Tongue/Throat trimethoprim Allergy Itching Verified 01/03/23 01:37 [From Sulfamethoxazole-Trimethoprim] oxycodone AdvReac Mild Vomiting Verified 01/03/23 01:37 amlodipine AdvReac Swelling Verified 01/03/23 01:37 lisinopril AdvReac Swelling Verified 01/03/23 01:37 meropenem AdvReac Rash Verified 01/03/23 01:37 pregabalin AdvReac Swelling Verified 01/03/23 01:37 reslizumab AdvReac Unknown Verified 01/03/23 01:37 Review of Systems Review of Systems: Review of systems negative except for what is documented in the HPI PMFSH Past Medical History Medical History Anxiety Breast cancer Chronic anticoagulation Chronic back pain Collagenous colitis Congestive heart failure COVID-19 Deep venous thrombosis Depression Irritable bowel syndrome Kidney stone Morbid obesity Multiple thyroid nodules Obstructive sleep apnea on CPAP Overactive bladder Peripheral neuropathy Pulmonary embolism positive for coagulation workup Restless leg syndrome Type 2 diabetes mellitus Surgical History Surgical History History of bilateral mastectomy History of cardiac catheterization Reportedly negative for coronary artery disease. History of cholecystectomy History of colonoscopy History of cystoscopy History of esophagogastroduodenoscopy (EGD) History of right oophorectomy History of total right knee replacement History of umbilical hernia repair History of ureter stent Status post insertion of spinal cord stimulator Family History Family History (Re
[2023-01-03 05:09] VITALS: BP 119/61; PULSE 74; RESP 17; O2SAT 98
== END 2023-01-03 05:11 | disposition home or self-care (01) ==
PROVIDERS: Emergency Provider Emergency Medicine; PCP Internal Medicine
DX: R51.9 Headache, unspecified (principal); F07.81 Postconcussional syndrome; R25.1 Tremor, unspecified; Z79.01 Long term (current) use of anticoagulants; E11.40 Type 2 diabetes mellitus with diabetic neuropathy, unspecified; G47.33 Obstructive sleep apnea (adult) (pediatric); F41.9 Anxiety disorder, unspecified; I50.9 Heart failure, unspecified; F32.A Depression, unspecified; G25.81 Restless legs syndrome; N32.81 Overactive bladder; Z86.718 Personal history of other venous thrombosis and embolism; Z86.711 Personal history of pulmonary embolism; E66.01 Morbid (severe) obesity due to excess calories; Z68.43 Body mass index [BMI] 50.0-59.9, adult; Z85.3 Personal history of malignant neoplasm of breast; Z87.891 Personal history of nicotine dependence; Z79.4 Long term (current) use of insulin; Z79.891 Long term (current) use of opiate analgesic; Z79.51 Long term (current) use of inhaled steroids
CPT/HCPCS: 36415; 70450; 80053; 82550; 85025; 99284; A9270

== ENCOUNTER 2023-01-15 02:44 | Emergency (ER) | payer MEDICARE, MEDICAID, SELFPAY ==
[2023-01-15] VITALS (16 sets, daily range): BP systolic 148–163; BP diastolic 85–86; PULSE 76–88; RESP 12–28; TEMP 36.4; O2SAT 97–100
--- NOTE | ~2023-01-15 | XR_ITS ---
XR chest 1V portable 01/15/2023 04:13 Indication: Cough and shortness of breath Procedure: AP portable chest Comparison: Comparison to multiple prior studies sequentially, with oldest reviewed study dated 09/2022. Findings: Moderate cardiomegaly. Mild pulmonary vascular congestion. No focal pneumonia, pleural effu deuce or pneumothorax. Impression: 1: Moderate cardiomegaly with mild pulmonary vascular congestion. Reviewed, dictated and finalized at location A. Impression: 1: Moderate cardiomegaly with mild pulmonary vascular congestion.
--- NOTE | 2023-01-15 04:05 | ED.GENADULT ---
HPI - General Adult General Chief complaint: Unspecified Stated complaint: Hx concussion, sob, anxious, emotional Time Seen by Provider: 01/15/23 03:07 History of Present Illness HPI narrative: Patient is a 67-year-old female presenting with a headache. Patient states that she sustained a concussion several weeks ago. She was transferred to [facility] and imaging was negative and she was able to go home. She continues to have headaches. She was seen here about a week ago with the same complaint. Repeat scan showed no changes. Patient denies any new traumas. States that she just continues to have headaches and she also feels more emotional than normal. States that she will be with her family and she just starts crying. States that every once in a while she also feels short of breath and anxious. No vision changes, fevers, chest pain, numbness or weakness, leg swelling, abdominal pain. Denies further complaints. Related Data Home Medications Medication Instructions Recorded Confirmed amitriptyline 25 mg tablet 25 mg PO HS 01/06/20 12/17/22 exemestane 25 mg tablet 25 mg PO HS 01/06/20 12/17/22 insulin glargine 100 unit/mL (3 50 unit subcut QAM 01/06/20 12/17/22 mL) subcutaneous pen (Lantus Solostar U-100 Insulin) rivaroxaban 20 mg tablet (Xarelto) 20 mg PO DAILY 01/06/20 12/17/22 ropinirole 5 mg tablet 5 mg PO HS 01/06/20 12/17/22 insulin lispro 100 unit/mL 22 unit subcut TID 03/19/22 12/17/22 subcutaneous pen (Humalog KwikPen (U-100) Insulin) methenamine hippurate 1 gram tablet 1 g PO BID 07/19/22 12/17/22 oxybutynin chloride 15 mg 15 mg PO DAILY 11/06/22 12/17/22 tablet,extended release 24 hr hydrocodone 10 mg-acetaminophen 1 tablet PO Q6-8H PRN Pain 12/17/22 12/17/22 325 mg tablet Allergies Allergy/AdvReac Type Severity Reaction Status Date / Time ceftriaxone Allergy Severe SOB Verified 01/15/23 03:42 cephalexin Allergy Severe Difficulty Verified 01/15/23 03:42 Breathing Cephalosporins Allergy Severe Difficulty Verified 01/15/23 03:42 Breathing lorazepam Allergy Severe Swelling Verified 01/15/23 03:42 metoclopramide Allergy Intermediate Other Verified 01/15/23 03:42 chlorhexidine Allergy Mild BLISTERING Verified 01/15/23 03:42 levofloxacin Allergy Mild Hives / Verified 01/15/23 03:42 Red Face ketorolac Allergy Itching Verified 01/15/23 03:42 latex Allergy Rash Verified 01/15/23 03:42 nitrofurantoin Allergy Itching Verified 01/15/23 03:42 sulfamethoxazole Allergy Itching Verified 01/15/23 03:42 [From Sulfamethoxazole-Trimethoprim] trazodone Allergy Swelling Verified 01/15/23 03:42 of Lip/Tongue/Throat trimethoprim Allergy Itching Verified 01/15/23 03:42 [From Sulfamethoxazole-Trimethoprim] oxycodone AdvReac Mild Vomiting Verified 01/15/23 03:42 amlodipine AdvReac Swelling Verified 01/15/23 03:42 lisinopril AdvReac Swelling Verified 01/15/23 03:42 meropenem AdvReac Rash Verified 01/15/23 03:42 pregabalin AdvReac Swelling Verified 01/15/23 03:42 reslizumab AdvReac Unknown Verified 01/15/23 03:42 Review of Systems Review of Systems: All systems reviewed & are unremarkable except as noted in HPI and below PMFSH Past Medical History Medical History Anxiety Breast cancer Chronic anticoagulation Chronic back pain Collagenous colitis Congestive heart failure COVID-19 Deep venous thrombosis Depression Irritable bowel syndrome Kidney stone Morbid obesity Multiple thyroid nodules Obstructive sleep apnea on CPAP Overactive bladder Peripheral neuropathy Pulmonary embolism positive for coagulation workup Restless leg syndrome Type 2 diabetes mellitus Surgical History Surgical History History of bilateral mastectomy History of cardiac catheterization Reportedly negative for coronary artery disease. History of cholecystectomy History of
[2023-01-15 04:12] LABS: Alanine Aminotransferase 22 U/L (6-35); Albumin Level 3.8 g/dL (3.5-5.1); Alkaline Phosphatase 74 U/L (38-126); Anion Gap 6 mmol/L (8-16); Aspartate Amino Transferase 23 U/L (14-36); Bilirubin,Total 0.7 mg/dL (0.2-1.3); Blood Urea Nitrogen 15 mg/dL (7-17); Calcium 9.1 mg/dL (8.4-10.2); Carbon Dioxide 29 mmol/L (22-30); Chloride 100 mmol/L (98-107); Estimated CRCL calculation 100 ml/min; Estimated Glomerular Filt Rate > 60; Glucose 228 mg/dL (65-110); Potassium 3.8 mmol/L (3.4-5.0); Sodium 135 mmol/L (137-145)
[2023-01-15 04:19] LABS: Basophils Percent Auto 0.4 % (0.2-1.2); Eosinophils Absolute Auto 0.3 K/mm3 (0-0.3); Eosinophils Percent Auto 3.2 % (0-4.4); Hematocrit 40.4 % (37.0-47.0); Hemoglobin 12.7 g/dL (12.0-15.0); Immature Granulocyte Absolute 0.04 K/mm3 (0.00-0.031); Immature Granulocyte Percent A 0.4 % (0-0.5); Lymphocytes Absolute Auto 2.29 K/mm3 (0.9-3.2); Lymphocytes Percent Auto 22.3 % (18.3-44.2); Mean Corpuscular HGB Conc 31.4 g/dl (32-36); Mean Corpuscular Hemoglobin 28.9 pg (26-34); Monocytes Absolute Auto 0.8 K/mm3 (0.1-0.6); Monocytes Percent Auto 7.3 % (2.6-8.5); Neutrophils Absolute Auto 6.8 K/mm3 (1.3-6.7); Neutrophils Percent Auto 66.4 % (45.5-73.1); Platelet Count Result 274 k/mm3 (150-375); Red Blood Count 4.39 M/mm3 (4.2-5.4); Red Cell Distribution Width 13.8 % (11.5-14.5); White Blood Count 10.3 K/mm3 (4.5-10.0)
[2023-01-15 04:25] LABS: Lipase 75 U/L (23-300)
[2023-01-15] MEDS: ACETAMINOPHEN/BUTALBITAL/CAFFEINE 325-50-40 MG TABLET (FIORICET) 1 TAB PO (04:25)
[2023-01-15] MEDS: diphenhydrAMINE HCl INJ 50 MG/ML VIAL 25 MG IV PUSH (04:25)
[2023-01-15] MEDS: SODIUM CHLORIDE 0.9% IV 1,000 ML 999 ML IV CONT (04:26)
== END 2023-01-15 06:04 | disposition home or self-care (01) ==
PROVIDERS: Emergency Provider Emergency Medicine; PCP Internal Medicine
DX: R51.9 Headache, unspecified (principal); F07.81 Postconcussional syndrome; F41.9 Anxiety disorder, unspecified; Z85.3 Personal history of malignant neoplasm of breast; E11.9 Type 2 diabetes mellitus without complications; I50.9 Heart failure, unspecified; F32.A Depression, unspecified; G47.30 Sleep apnea, unspecified; G25.81 Restless legs syndrome; Z79.01 Long term (current) use of anticoagulants; Z86.718 Personal history of other venous thrombosis and embolism
CPT/HCPCS: 36415; 71045; 80053; 83690; 85025; 96361; 96374; 99284; A9270; J1200; J7030

== ENCOUNTER 2023-02-21 13:18 | Emergency (ER) | payer MEDICARE, MEDICAID, SELFPAY ==
[2023-02-21 13:21] VITALS: BP 158/77; PULSE 94; RESP 20; TEMP 36.8; O2SAT 98
--- NOTE | 2023-02-21 14:36 | ED.GENADULT ---
HPI - General Adult General Chief complaint: Skin/Abscess/Foreign Body Stated complaint: discharge from back surgery Time Seen by Provider: 02/21/23 15:39 Source: patient Mode of arrival: ambulatory Limitations: no limitations History of Present Illness HPI narrative: Patient is a 67-year-old female who presents to the ED with report of left-sided lower back pain. Patient reports she had a spinal pain stimulator implanted on at [facility] by Dr. Maxi Gregg. She has been having pain in left lower back since Monday night, constant, worse with any movement. She is prescribed Zahl and has been taking this with Tylenol without improvement. She also notes having increased drainage from her left-sided incision last night. She reports chills, denies fever. She has not tried contacting her surgeon. Denies numbness or weakness, incontinence. Related Data Home Medications Medication Instructions Recorded Confirmed amitriptyline 25 mg tablet 25 mg PO HS 01/06/20 12/17/22 exemestane 25 mg tablet 25 mg PO HS 01/06/20 12/17/22 insulin glargine 100 unit/mL (3 50 unit subcut QAM 01/06/20 12/17/22 mL) subcutaneous pen (Lantus Solostar U-100 Insulin) rivaroxaban 20 mg tablet (Xarelto) 20 mg PO DAILY 01/06/20 12/17/22 ropinirole 5 mg tablet 5 mg PO HS 01/06/20 12/17/22 insulin lispro 100 unit/mL 22 unit subcut TID 03/19/22 12/17/22 subcutaneous pen (Humalog KwikPen (U-100) Insulin) methenamine hippurate 1 gram tablet 1 g PO BID 07/19/22 12/17/22 oxybutynin chloride 15 mg 15 mg PO DAILY 11/06/22 12/17/22 tablet,extended release 24 hr hydrocodone 10 mg-acetaminophen 1 tablet PO Q6-8H PRN Pain 12/17/22 12/17/22 325 mg tablet Allergies Allergy/AdvReac Type Severity Reaction Status Date / Time ceftriaxone Allergy Severe SOB Verified 01/15/23 03:42 cephalexin Allergy Severe Difficulty Verified 01/15/23 03:42 Breathing Cephalosporins Allergy Severe Difficulty Verified 01/15/23 03:42 Breathing lorazepam Allergy Severe Swelling Verified 01/15/23 03:42 metoclopramide Allergy Intermediate Other Verified 01/15/23 03:42 chlorhexidine Allergy Mild BLISTERING Verified 01/15/23 03:42 levofloxacin Allergy Mild Hives / Verified 01/15/23 03:42 Red Face ketorolac Allergy Itching Verified 01/15/23 03:42 latex Allergy Rash Verified 01/15/23 03:42 nitrofurantoin Allergy Itching Verified 01/15/23 03:42 sulfamethoxazole Allergy Itching Verified 01/15/23 03:42 [From Sulfamethoxazole-Trimethoprim] trazodone Allergy Swelling Verified 01/15/23 03:42 of Lip/Tongue/Throat trimethoprim Allergy Itching Verified 01/15/23 03:42 [From Sulfamethoxazole-Trimethoprim] oxycodone AdvReac Mild Vomiting Verified 01/15/23 03:42 amlodipine AdvReac Swelling Verified 01/15/23 03:42 lisinopril AdvReac Swelling Verified 01/15/23 03:42 meropenem AdvReac Rash Verified 01/15/23 03:42 pregabalin AdvReac Swelling Verified 01/15/23 03:42 reslizumab AdvReac Unknown Verified 01/15/23 03:42 Review of Systems Review of Systems: CONSTITUTIONAL: Denies fever, chills, or sweats. SKIN: See HPI. MUSCULOSKELETAL: See HPI. NEUROLOGIC: Denies headache, numbness, or weakness. All systems reviewed & are unremarkable except as noted in HPI and below PMFSH Past Medical History Medical History Anxiety Breast cancer Chronic anticoagulation Chronic back pain Collagenous colitis Congestive heart failure COVID-19 Deep venous thrombosis Depression Irritable bowel syndrome Kidney stone Morbid obesity Multiple thyroid nodules Obstructive sleep apnea on CPAP Overactive bladder Peripheral neuropathy Pulmonary embolism positive for coagulation workup Restless leg syndrome Type 2 diabetes mellitus Surgical History Surgical History History of bilateral mastectomy History of cardiac catheter
[2023-02-21 15:16] LABS: Basophils Percent Auto 0.4 % (0.2-1.2); Eosinophils Absolute Auto 0.4 K/mm3 (0-0.3); Eosinophils Percent Auto 3.8 % (0-4.4); Hematocrit 43.7 % (37.0-47.0); Hemoglobin 13.8 g/dL (12.0-15.0); Immature Granulocyte Absolute 0.04 K/mm3 (0.00-0.031); Immature Granulocyte Percent A 0.4 % (0-0.5); Lymphocytes Absolute Auto 2.56 K/mm3 (0.9-3.2); Lymphocytes Percent Auto 25.4 % (18.3-44.2); Mean Corpuscular HGB Conc 31.6 g/dl (32-36); Mean Corpuscular Hemoglobin 28.8 pg (26-34); Mean Corpuscular Volume 91.2 fl (80-100); Mean Platelet Volume 9.9 fl (7.4-10.4); Monocytes Absolute Auto 0.6 K/mm3 (0.1-0.6); Monocytes Percent Auto 5.6 % (2.6-8.5); Neutrophils Absolute Auto 6.5 K/mm3 (1.3-6.7); Neutrophils Percent Auto 64.4 % (45.5-73.1); Platelet Count Result 289 k/mm3 (150-375); Red Blood Count 4.79 M/mm3 (4.2-5.4); Red Cell Distribution Width 13.4 % (11.5-14.5); White Blood Count 10.1 K/mm3 (4.5-10.0)
[2023-02-21 15:26] LABS: Lactic Acid Reflex 2.1 mmol/L (0.7-2.0)
[2023-02-21 15:27] LABS: Alanine Aminotransferase 24 U/L (6-35); Albumin Level 4.3 g/dL (3.5-5.1); Alkaline Phosphatase 84 U/L (38-126); Anion Gap 4 mmol/L (8-16); Aspartate Amino Transferase 27 U/L (14-36); Bilirubin,Total 0.9 mg/dL (0.2-1.3); Blood Urea Nitrogen 17 mg/dL (7-17); CRP 4.5 mg/dL (<1.0); Calcium 9.7 mg/dL (8.4-10.2); Carbon Dioxide 32 mmol/L (22-30); Chloride 97 mmol/L (98-107); Estimated CRCL calculation 75 ml/min; Estimated Glomerular Filt Rate > 60; Glucose 364 mg/dL (65-110); Potassium 4.1 mmol/L (3.4-5.0); Sodium 133 mmol/L (137-145)
[2023-02-21 15:58] LABS: Erythrocyte Sedimentation Rate 26 mm/hr (0-20)
--- NOTE | 2023-02-21 16:18 | PC.NURSE ---
pt states her pmd just called her back and wants her to go to [facility] er because he may have to reopen her incision and clean it out. states her is coming to pick her up.
--- NOTE | 2023-02-21 16:40 | PC.NURSE ---
pt left facility with . states is going to slu er
[2023-02-21 18:12] LABS: Reflex Lactic Acid Yes or No Add Lactic
== END 2023-02-21 16:40 | disposition left against medical advice (07) ==
PROVIDERS: Emergency Provider Physician Assistant; PCP Internal Medicine; Referring Provider Physician Assistant
DX: L76.82 Other postprocedural complications of skin and subcutaneous tissue (principal); M54.50 Low back pain, unspecified; I50.9 Heart failure, unspecified; E11.9 Type 2 diabetes mellitus without complications; K58.9 Irritable bowel syndrome, unspecified; G89.29 Other chronic pain; E66.01 Morbid (severe) obesity due to excess calories; Z68.41 Body mass index [BMI] 40.0-44.9, adult; G25.81 Restless legs syndrome; Z96.82 Presence of neurostimulator; Z96.651 Presence of right artificial knee joint; Z86.718 Personal history of other venous thrombosis and embolism; Z85.3 Personal history of malignant neoplasm of breast; Z86.16 Personal history of COVID-19; Z87.442 Personal history of urinary calculi; Z86.711 Personal history of pulmonary embolism; Z87.891 Personal history of nicotine dependence; Z90.13 Acquired absence of bilateral breasts and nipples; Z90.49 Acquired absence of other specified parts of digestive tract; Z90.721 Acquired absence of ovaries, unilateral; Z79.4 Long term (current) use of insulin; Z79.01 Long term (current) use of anticoagulants
CPT/HCPCS: 36415; 80053; 83605; 85025; 85652; 86140; 99283

== ENCOUNTER 2023-03-02 20:00 | Emergency (ER) | payer MEDICARE, MEDICAID, SELFPAY ==
--- NOTE | ~2023-03-02 | CT_ITS ---
CT of the Abdomen and Pelvis: Indication: Left buttock pain, postoperative pain Technique: 2.5 mm axial scans were obtained through the abdomen and pelvis following intravenous adm inistration of 100 cc of Omnipaque 350. Dose reduction technique was used on this scan by utilizing a utomated exposure control and iterative reconstruction technique. The dose-length product (DLP) was 1 553.38 mGy-cm. COMPARISON: 12/04/2022 Findings: Scans through the lung bases are unremarkable. The liver, spleen, pancreas, adrenals and kidneys are within normal limits. Cholecystectomy clips are present. No evidence of aortic aneurysm. No lymphadenopathy. No bowel obstruction or bowel wall thickening. There is no evidence to suggest acute appendicitis. Images through the pelvis were performed. Urinary bladder unremarkable. No adnexal mass seen. No asci aliya. Neurostimulator device is implanted in the left buttock/left lower back region. Bilateral sacroi liitis is unchanged. Impression: Interval placement of neurostimulator device in the left buttock/left lower back region. No distinct pathologic inflammatory change or other abnormality associated with the device seen however. Stable bilateral sacroiliitis. Reviewed, dictated and finalized at location . ON BAG [employer]IPPER Impression: Interval placement of neurostimulator device in the left buttock/left lower michelle k region. No distinct pathologic inflammatory change or other abnormality assoc iated with the device seen however. Stable bilateral sacroiliitis.
[2023-03-02 20:08] VITALS: BP 139/71; PULSE 86; RESP 20; TEMP 36.3; O2SAT 99
--- NOTE | 2023-03-02 20:11 | ECG_ITS ---
Measurements Intervals [place] Rate: 93 P: 20 [place]: 143 QRS: -7 QRSD: 89 T: 34 QT: 335 QTc: 419 Interpretive Statements SINUS RHYTHM RSR' IN V1 OR V2, PROBABLY NORMAL VARIANT BORDERLINE T WAVE ABNORMALITY- ANTERIOR LEADS BASELINE WANDER- I, III, AVL, AVF BORDERLINE ECG COMPARED TO ECG 12/17/2022 14:26:11 NO SIGNIFICANT CHANGES Electronically Signed On 03-03-2023 6:19:03 REGISTRAR M[employer]UM by Jonatan Parra D.O.
[2023-03-02 20:44] LABS: Basophils Absolute Auto 0.1 K/mm3 (0.0-0.1); Basophils Percent Auto 0.5 % (0.2-1.2); Eosinophils Absolute Auto 0.4 K/mm3 (0-0.3); Eosinophils Percent Auto 3.3 % (0-4.4); Hematocrit 47.5 % (37.0-47.0); Hemoglobin 14.9 g/dL (12.0-15.0); Immature Granulocyte Absolute 0.05 K/mm3 (0.00-0.031); Immature Granulocyte Percent A 0.5 % (0-0.5); Lymphocytes Absolute Auto 3.03 K/mm3 (0.9-3.2); Lymphocytes Percent Auto 27.6 % (18.3-44.2); Mean Corpuscular HGB Conc 31.4 g/dl (32-36); Mean Corpuscular Hemoglobin 28.6 pg (26-34); Mean Corpuscular Volume 91.2 fl (80-100); Monocytes Absolute Auto 0.6 K/mm3 (0.1-0.6); Monocytes Percent Auto 5.2 % (2.6-8.5); Neutrophils Absolute Auto 6.9 K/mm3 (1.3-6.7); Neutrophils Percent Auto 62.9 % (45.5-73.1); Platelet Count Result 329 k/mm3 (150-375); Red Blood Count 5.21 M/mm3 (4.2-5.4); Red Cell Distribution Width 13.4 % (11.5-14.5)
[2023-03-02 20:57] LABS: Alanine Aminotransferase 40 U/L (6-35); Albumin Level 4.9 g/dL (3.5-5.1); Alkaline Phosphatase 89 U/L (38-126); Anion Gap 14 mmol/L (8-16); Aspartate Amino Transferase 29 U/L (14-36); Bilirubin,Total 0.8 mg/dL (0.2-1.3); Blood Urea Nitrogen 18 mg/dL (7-17); Calcium 11.6 mg/dL (8.4-10.2); Carbon Dioxide 28 mmol/L (22-30); Chloride 95 mmol/L (98-107); Estimated CRCL calculation 60 ml/min; Estimated Glomerular Filt Rate 55; Glucose 285 mg/dL (65-110); Lipase 83 U/L (23-300); Potassium 3.9 mmol/L (3.4-5.0); Sodium 137 mmol/L (137-145)
[2023-03-02 21:13] LABS: Appearance Urine Turbid (Clear); Bacteria Urine None Seen /hpf; Bilirubin Urine Negative (Negative); Blood Urine Trace (Negative); Budding Yeast Urine Present /hpf; Color Urine Yellow (Yellow); Glucose Urine UA 3+ mg/dL (Negative); Ketones Urine Negative (Negative); Leukocyte Esterase Ur Trace LEU/UL (Negative); Need Manual Microscopic Reviewed; Nitrate Urine Negative (Negative); Non Pathogenic Casts 0-2; Protein Urine Negative (Negative); RBC Urine >100 /hpf (0-2); Specific Grav Ur 1.019 (1.001-1.035); Squamous Epithelial Cell Urine Few /hpf (Few); Uric Acid Crystals Urine Present /hpf; Urobilinogen Urine 0.2 mg/dL (<2.0); WBC Urine 0-5 /hpf; pH Urine 5.5 (5.0-9.0)
[2023-03-02 21:17] LABS: Add Urine Microscopic? YES
[2023-03-02 22:58] VITALS: BP 157/79; PULSE 96; RESP 22; TEMP 36.4; O2SAT 100
--- NOTE | 2023-03-02 23:00 | ED.GENADULT ---
HPI - General Adult General Chief complaint: Unspecified <Sree Marcelino PA-C - Last Filed: 03/03/23 03:05> Stated complaint: n/v, post op complications <STEPH Mccarthy Last Filed: 03/03/23 03:05> Time Seen by Provider: 03/02/23 22:34 <STEPH Mccarthy Last Filed: 03/03/23 03:05> Source: patient <STEPH Mccarthy Last Filed: 03/03/23 03:05> Mode of arrival: ambulatory <STEPH Mccarthy Last Filed: 03/03/23 03:05> Limitations: no limitations <STEPH Mccarthy Last Filed: 03/03/23 03:05> History of Present Illness HPI narrative: This is a 67-year-old female who presents to the ED with chief complaint of N/V and unable to tolerate p.o. intake for the past 2 days. Reports she was feeling shaky and dizzy. Reports 3 episodes of vomiting. She reports that she was discharged 5 days ago from [facility] after being seen there for postoperative pain. She had recent spinal implant stimulator placed. She was discharged on Bactrim for possible skin infection and UTI. She states that she was feeling fine for couple of days but then started to develop recurrent symptoms. She states she is here to rule out another infection. She does state that she has pain at the left buttock surgical site. Denies abdominal pain, chest pain, shortness of breath, fevers, chills, cough. SPinal stimulator placed 02/16/23 [facility] by Dr. Maxi Gregg. <Sree Marcelino PA-C - Last Filed: 03/03/23 03:05> Related Data Home medications: Home Medications Medication Instructions Recorded Confirmed amitriptyline 25 mg tablet 25 mg PO HS 01/06/20 12/17/22 exemestane 25 mg tablet 25 mg PO HS 01/06/20 12/17/22 insulin glargine 100 unit/mL (3 50 unit subcut QAM 01/06/20 12/17/22 mL) subcutaneous pen (Lantus Solostar U-100 Insulin) rivaroxaban 20 mg tablet (Xarelto) 20 mg PO DAILY 01/06/20 12/17/22 ropinirole 5 mg tablet 5 mg PO HS 01/06/20 12/17/22 insulin lispro 100 unit/mL 22 unit subcut TID 03/19/22 12/17/22 subcutaneous pen (Humalog KwikPen (U-100) Insulin) methenamine hippurate 1 gram tablet 1 g PO BID 07/19/22 12/17/22 oxybutynin chloride 15 mg 15 mg PO DAILY 11/06/22 12/17/22 tablet,extended release 24 hr hydrocodone 10 mg-acetaminophen 1 tablet PO Q6-8H PRN Pain 12/17/22 12/17/22 325 mg tablet <Sree Marcelino PA-C - Last Filed: 03/03/23 03:05> Allergies/adverse reactions: Allergies Allergy/AdvReac Type Severity Reaction Status Date / Time ceftriaxone Allergy Severe SOB Verified 03/02/23 23:05 cephalexin Allergy Severe Difficulty Verified 03/02/23 23:05 Breathing Cephalosporins Allergy Severe Difficulty Verified 03/02/23 23:05 Breathing lorazepam Allergy Severe Swelling Verified 03/02/23 23:05 metoclopramide Allergy Intermediate Other Verified 03/02/23 23:05 chlorhexidine Allergy Mild BLISTERING Verified 03/02/23 23:05 levofloxacin Allergy Mild Hives / Verified 03/02/23 23:05 Red Face ketorolac Allergy Itching Verified 03/02/23 23:05 latex Allergy Rash Verified 03/02/23 23:05 nitrofurantoin Allergy Itching Verified 03/02/23 23:05 sulfamethoxazole Allergy Itching Verified 01/15/23 03:42 [From Sulfamethoxazole-Trimethoprim] trazodone Allergy Swelling Verified 01/15/23 03:42 of Lip/Tongue/Throat trimethoprim Allergy Itching Verified 01/15/23 03:42 [From Sulfamethoxazole-Trimethoprim] oxycodone AdvReac Mild Vomiting Verified 01/15/23 03:42 amlodipine AdvReac Swelling Verified 01/15/23 03:42 lisinopril AdvReac Swelling Verified 01/15/23 03:42 meropenem AdvReac Rash Verified 01/15/23 03:42 pregabalin AdvReac Swelling Verified 01/15/23 03:42 reslizumab AdvReac Unknown Verified 01/15/23 03:42 <Sree Marcelino PA-C - Last Filed: 03/03/23 03:05> Review of Systems Review of Systems: All systems as dictated in HPI <Sree Marcelino PA-C - Last Filed: 03/03/23 03:05> [facility] Past Medical History Med
[2023-03-03] MEDS: SODIUM CHLORIDE 0.9% IV 1,000 ML 999 ML IV CONT (00:16)
[2023-03-03] MEDS: MORPHINE SULFATE (*CRX) 4 MG/ML INJ IV PUSH ×2 (00:17→03:47)
[2023-03-03] MEDS: ONDANSETRON INJ 4 MG/2 ML VIAL IV PUSH (00:17)
[2023-03-03 01:04] VITALS: PULSE 90; RESP 17; O2SAT 100
--- NOTE | 2023-03-03 01:06 | PC.NURSE ---
This RN administered 25mg of Benedryl IV push with verbal order from STEPH Noble. Pt stated she was itching around buttocks area where the incision was . This Rn used closed loop communication with EDP provider, STEPH Noble to confirm dosage, route, and patient. EDP Real confirmed patient, route, and administration f 25 mg of Benadryl IV.
[2023-03-03] MEDS: diphenhydrAMINE HCl INJ 50 MG/ML VIAL (01:09)
[2023-03-03 03:50] VITALS: PULSE 96; RESP 18; O2SAT 100
== END 2023-03-03 06:20 | disposition home or self-care (01) ==
PROVIDERS: Student in an Organized Health Care Education/Training Program; Emergency Provider Emergency Medicine; PCP Internal Medicine
DX: R11.2 Nausea with vomiting, unspecified (principal); I50.9 Heart failure, unspecified; E11.9 Type 2 diabetes mellitus without complications; K58.9 Irritable bowel syndrome, unspecified; G89.29 Other chronic pain; E66.01 Morbid (severe) obesity due to excess calories; Z68.41 Body mass index [BMI] 40.0-44.9, adult; G62.9 Polyneuropathy, unspecified; G25.81 Restless legs syndrome; Z96.82 Presence of neurostimulator; Z96.651 Presence of right artificial knee joint; Z86.718 Personal history of other venous thrombosis and embolism; Z85.3 Personal history of malignant neoplasm of breast; Z86.16 Personal history of COVID-19; Z87.442 Personal history of urinary calculi; Z86.711 Personal history of pulmonary embolism; Z87.891 Personal history of nicotine dependence; Z90.13 Acquired absence of bilateral breasts and nipples; Z90.49 Acquired absence of other specified parts of digestive tract; Z90.721 Acquired absence of ovaries, unilateral; Z79.4 Long term (current) use of insulin; Z79.01 Long term (current) use of anticoagulants; M46.1 Sacroiliitis, not elsewhere classified; R94.31 Abnormal electrocardiogram [ECG] [EKG]
CPT/HCPCS: 36415; 74177; 80053; 81001; 83690; 85025; 93005; 96361; 96374; 96375; 96376; 99284; J1200; J2270; J2405; J7030; Q9967

== ENCOUNTER 2023-04-28 10:27 | Emergency (ER) | payer MEDICARE, MEDICAID, SELFPAY ==
[2023-04-28 10:37] VITALS: BP 144/89; PULSE 91; RESP 16; TEMP 38; O2SAT 99
--- NOTE | 2023-04-28 12:19 | ED.FEMALEGU ---
HPI - Female Genitourinary General Chief complaint: Urogenital-Female Stated complaint: uti Time Seen by Provider: 04/28/23 12:02 History of Present Illness HPI Narrative: This 67-year-old female with a history of diabetes presenting with concerns for UTI. Patient states that she has had suprapubic pressure and frequent urination which is how her UTIs typically present. States that today she woke up with a slight fever so she became concerned wanted to be evaluated. States that she also had a sore throat this morning. States she has an appointment with her PCP on Monday. No chest pain, shortness of breath, cough, abdominal pain, vomiting, diarrhea. States that she has been nauseated. Related Data Home Medications Medication Instructions Recorded Confirmed amitriptyline 25 mg tablet 25 mg PO HS 01/06/20 12/17/22 exemestane 25 mg tablet 25 mg PO HS 01/06/20 12/17/22 insulin glargine 100 unit/mL (3 50 unit subcut QAM 01/06/20 12/17/22 mL) subcutaneous pen (Lantus Solostar U-100 Insulin) rivaroxaban 20 mg tablet (Xarelto) 20 mg PO DAILY 01/06/20 12/17/22 ropinirole 5 mg tablet 5 mg PO HS 01/06/20 12/17/22 insulin lispro 100 unit/mL 22 unit subcut TID 03/19/22 12/17/22 subcutaneous pen (Humalog KwikPen (U-100) Insulin) methenamine hippurate 1 gram tablet 1 g PO BID 07/19/22 12/17/22 oxybutynin chloride 15 mg 15 mg PO DAILY 11/06/22 12/17/22 tablet,extended release 24 hr hydrocodone 10 mg-acetaminophen 1 tablet PO Q6-8H PRN Pain 12/17/22 12/17/22 325 mg tablet Allergies Allergy/AdvReac Type Severity Reaction Status Date / Time ceftriaxone Allergy Severe SOB Verified 04/28/23 11:52 cephalexin Allergy Severe Difficulty Verified 04/28/23 11:52 Breathing Cephalosporins Allergy Severe Difficulty Verified 04/28/23 11:52 Breathing lorazepam Allergy Severe Swelling Verified 04/28/23 11:52 metoclopramide Allergy Intermediate Other Verified 04/28/23 11:52 chlorhexidine Allergy Mild BLISTERING Verified 04/28/23 11:52 levofloxacin Allergy Mild Hives / Verified 04/28/23 11:52 Red Face ketorolac Allergy Itching Verified 04/28/23 11:52 latex Allergy Rash Verified 04/28/23 11:52 nitrofurantoin Allergy Itching Verified 04/28/23 11:52 sulfamethoxazole Allergy Itching Verified 04/28/23 11:52 [From Sulfamethoxazole-Trimethoprim] trazodone Allergy Swelling Verified 04/28/23 11:52 of Lip/Tongue/Throat trimethoprim Allergy Itching Verified 04/28/23 11:52 [From Sulfamethoxazole-Trimethoprim] oxycodone AdvReac Mild Vomiting Verified 04/28/23 11:52 amlodipine AdvReac Swelling Verified 04/28/23 11:52 lisinopril AdvReac Swelling Verified 04/28/23 11:52 meropenem AdvReac Rash Verified 04/28/23 11:52 pregabalin AdvReac Swelling Verified 04/28/23 11:52 reslizumab AdvReac Unknown Verified 04/28/23 11:52 Review of Systems Review of Systems: All systems reviewed & are unremarkable except as noted in HPI and below PMFSH Past Medical History Medical History Anxiety Breast cancer Chronic anticoagulation Chronic back pain Collagenous colitis Congestive heart failure COVID-19 Deep venous thrombosis Depression Irritable bowel syndrome Kidney stone Morbid obesity Multiple thyroid nodules Obstructive sleep apnea on CPAP Overactive bladder Peripheral neuropathy Pulmonary embolism positive for coagulation workup Restless leg syndrome Type 2 diabetes mellitus Surgical History Surgical History History of bilateral mastectomy History of cardiac catheterization Reportedly negative for coronary artery disease. History of cholecystectomy History of colonoscopy History of cystoscopy History of esophagogastroduodenoscopy (EGD) History of right oophorectomy History of total right knee replacement History of umbilical hernia repair History of ureter stent Status post
[2023-04-28] MEDS: ONDANSETRON HCL ODT 4 MG TABLET PO (12:29)
[2023-04-28] MEDS: IBUPROFEN 600 MG TABLET PO (12:29)
[2023-04-28 12:39] LABS: Appearance Urine Clear (Clear); Bacteria Urine None Seen /hpf; Bilirubin Urine Negative (Negative); Blood Urine Trace (Negative); Color Urine Yellow (Yellow); Glucose Urine UA Negative (Negative); Ketones Urine Negative (Negative); Leukocyte Esterase Ur Negative LEU/UL (Negative); Nitrate Urine Negative (Negative); Non Pathogenic Casts 0-2; Protein Urine Negative (Negative); RBC Urine 0-2 /hpf (0-2); Specific Grav Ur 1.024 (1.001-1.035); Squamous Epithelial Cell Urine None seen /hpf (Few); Urobilinogen Urine 0.2 mg/dL (<2.0); WBC Urine 0-5 /hpf; pH Urine 5.5 (5.0-9.0)
[2023-04-28 13:08] LABS: Add Urine Microscopic? YES
[2023-04-28 14:42] LABS: Strep Group A RT-PCR DETECTED (Negative)
[2023-04-28 14:50] VITALS: BP 138/65; PULSE 83; RESP 18; TEMP 36.9; O2SAT 100
[2023-04-28 15:02] LABS: Influenza A QL RT-PCR Negative (Negative); Influenza B QL RT-PCR Negative (Negative); RSV RNA, RT-PCR Negative (Negative); SARS-CoV-2 RNA PCR Negative (Negative)
[2023-04-28] MEDS: AMOXICILLIN 500 MG CAPSULE PO (15:33)
== END 2023-04-28 15:38 | disposition home or self-care (01) ==
PROVIDERS: Emergency Provider Emergency Medicine; PCP Internal Medicine
DX: J02.0 Streptococcal pharyngitis (principal); Z20.822 Contact with and (suspected) exposure to COVID-19; I50.9 Heart failure, unspecified; E11.42 Type 2 diabetes mellitus with diabetic polyneuropathy; E66.01 Morbid (severe) obesity due to excess calories; Z68.43 Body mass index [BMI] 50.0-59.9, adult; N32.81 Overactive bladder; G25.81 Restless legs syndrome; G47.33 Obstructive sleep apnea (adult) (pediatric); K58.9 Irritable bowel syndrome, unspecified; F41.9 Anxiety disorder, unspecified; Z96.651 Presence of right artificial knee joint; Z96.0 Presence of urogenital implants; Z96.82 Presence of neurostimulator; Z86.711 Personal history of pulmonary embolism; Z86.16 Personal history of COVID-19; Z86.718 Personal history of other venous thrombosis and embolism; Z85.3 Personal history of malignant neoplasm of breast; Z87.440 Personal history of urinary (tract) infections; Z87.442 Personal history of urinary calculi; Z90.13 Acquired absence of bilateral breasts and nipples; Z90.49 Acquired absence of other specified parts of digestive tract; Z90.721 Acquired absence of ovaries, unilateral; Z79.4 Long term (current) use of insulin; Z79.01 Long term (current) use of anticoagulants
CPT/HCPCS: 81001; 87637; 87651; 99283; A9270

== ENCOUNTER 2023-04-28 21:15 | Emergency (ER) | payer MEDICARE, MEDICAID, SELFPAY ==
[2023-04-28] VITALS (11 sets, daily range): BP systolic 127–159; BP diastolic 72–76; PULSE 10–102; RESP 14–26; TEMP 38.1–39.4; O2SAT 93–97
--- NOTE | ~2023-04-28 | XR_ITS ---
EXAMINATION: XR chest 1V portable DATE: 04/28/2023 22:35 INDICATION: Chest pain. Dyspnea. TECHNIQUE: A single frontal view of the chest was obtained. COMPARISON: Chest single view 01/15/2023, CT abdomen and pelvis 03/03/2023 FINDINGS: There is no pneumonia, pleural effusion, or pneumothorax. The heart size is normal. Epidura l electrodes are noted. IMPRESSION: 1. No acute cardiopulmonary disease. Reviewed, dictated and finalized at location E. [employer]MENT TECHNICIAN
--- NOTE | ~2023-04-28 | CT_ITS ---
CT scan of the Neck Technique: 2.5 mm axial scans were obtained through the neck after intravenous administration of 75 c c Omnipaque 350. Coronal and sagittal reconstructions of the neck were obtained. Dose reduction techn ique was used on this scan by utilizing automated exposure control and iterative reconstruction techn ique. The dose-length product (DLP) was 1191.42 mGy-cm. Clinical History: Strep throat, leukocytosis Findings: There is no evidence of any significant cervical lymphadenopathy. Several small, nonenlarged jugulo- digastric and posterior cervical lymph nodes are noted bilaterally. Parapharyngeal spaces appear norm al bilaterally. The parotid and submandibular glands appear normal. There is prominent appearance of the bilateral tonsils, especially palatine tonsils, without abscess. There is relative narrowing of t he airway the level of the palatine tonsils. The pharyngeal mucosal spaces appear normal. No soft tissue masses are seen in the neck. The thyroid gland appears normal. Images of the lung apices reveal no abnormalities. Impression: [place] tonsillitis bilaterally with relative narrowing of the airway at this level. No peritonsilla r abscess evident. Reviewed, dictated and finalized at location . ATTENDANT Impression: [place] tonsillitis bilaterally with relative narrowing of the airway at this level. No peritonsillar abscess evident.
--- NOTE | 2023-04-28 21:39 | ECG_ITS ---
Measurements Intervals [place] Rate: 99 P: 15 [place]: 138 QRS: -1 QRSD: 88 T: 31 QT: 340 QTc: 437 Interpretive Statements SINUS RHYTHM BASELINE ARTIFACT- V1-V5 NORMAL ECG COMPARED TO ECG 03/02/2023 20:23:38 NO SIGNIFICANT CHANGES Electronically Signed On 04-29-2023 8:39:21 MANAGER ASSESSMENT by Jonatan Prara D.O.
[2023-04-28] MEDS: ACETAMINOPHEN 500 MG TABLET 1000 MG PO (22:20)
--- NOTE | 2023-04-28 22:25 | PC.NURSE ---
Patient taken to the bathroom via w/c at this time.
[2023-04-28 22:57] LABS: Basophils Absolute Auto 0.1 K/mm3 (0.0-0.1); Basophils Percent Auto 0.2 % (0.2-1.2); Eosinophils Absolute Auto 0.2 K/mm3 (0-0.3); Eosinophils Percent Auto 0.8 % (0-4.4); Hematocrit 38.6 % (37.0-47.0); Hemoglobin 11.9 g/dL (12.0-15.0); Immature Granulocyte Absolute 0.14 K/mm3 (0.00-0.031); Immature Granulocyte Percent A 0.6 % (0-0.5); Lymphocytes Absolute Auto 1.88 K/mm3 (0.9-3.2); Lymphocytes Percent Auto 8.5 % (18.3-44.2); Mean Corpuscular HGB Conc 30.8 g/dl (32-36); Mean Corpuscular Hemoglobin 28.5 pg (26-34); Mean Corpuscular Volume 92.3 fl (80-100); Mean Platelet Volume 9.7 fl (7.4-10.4); Monocytes Absolute Auto 1.4 K/mm3 (0.1-0.6); Monocytes Percent Auto 6.2 % (2.6-8.5); Neutrophils Absolute Auto 18.5 K/mm3 (1.3-6.7); Neutrophils Percent Auto 83.7 % (45.5-73.1); Platelet Count Result 267 k/mm3 (150-375); Red Blood Count 4.18 M/mm3 (4.2-5.4); Red Cell Distribution Width 13.7 % (11.5-14.5); White Blood Count 22.1 K/mm3 (4.5-10.0)
[2023-04-28 23:08] LABS: Alanine Aminotransferase 18 U/L (6-35); Albumin Level 3.7 g/dL (3.5-5.1); Alkaline Phosphatase 82 U/L (38-126); Anion Gap 6 mmol/L (8-16); Aspartate Amino Transferase 19 U/L (14-36); Bilirubin,Total 0.7 mg/dL (0.2-1.3); Blood Urea Nitrogen 14 mg/dL (7-17); Carbon Dioxide 29 mmol/L (22-30); Chloride 100 mmol/L (98-107); Estimated CRCL calculation 84 ml/min; Estimated Glomerular Filt Rate > 60; Glucose 309 mg/dL (65-110); Lipase 52 U/L (23-300); Sodium 135 mmol/L (137-145)
[2023-04-28 23:09] LABS: INR 1.1; Lactic Acid Reflex 1.6 mmol/L (0.7-2.0); Prothrombin Time 14.9 Seconds (11.1-14.7)
[2023-04-28 23:10] LABS: Partial Thromboplastin Time 34.1 SECONDS (22.3-36.8)
[2023-04-28 23:20] LABS: NT Pro B Type Natriuretic Pept 128 pg/mL (19.9-100); Troponin I < 0.012 ng/mL (0.000-0.034)
[2023-04-29 00:48] VITALS: BP 135/83; PULSE 80; RESP 22; O2SAT 93
[2023-04-29] MEDS: SODIUM CHLORIDE 0.9% IV 1,000 ML 999 ML IV CONT (01:04)
--- NOTE | 2023-04-29 01:58 | ED.GENADULT ---
HPI - General Adult General Chief complaint: Fever Stated complaint: FEVER, SORE THROAT, SICK Time Seen by Provider: 04/28/23 21:25 History of Present Illness HPI narrative: The patient 67-year-old female who presents emergency department with chief complaint of fever and sore throat. Patient was seen in the emergency department earlier this evening diagnosed with strep pharyngitis started on amoxicillin. Patient states that she has a sore throat reports that her temperature has not come down the patient does report that she has been on steroids recently and reports that she has had a little bit of shortness of breath and some discomfort in her chest when this was going on. Related Data Home Medications Medication Instructions Recorded Confirmed amitriptyline 25 mg tablet 25 mg PO HS 01/06/20 12/17/22 exemestane 25 mg tablet 25 mg PO HS 01/06/20 12/17/22 insulin glargine 100 unit/mL (3 50 unit subcut QAM 01/06/20 12/17/22 mL) subcutaneous pen (Lantus Solostar U-100 Insulin) rivaroxaban 20 mg tablet (Xarelto) 20 mg PO DAILY 01/06/20 12/17/22 ropinirole 5 mg tablet 5 mg PO HS 01/06/20 12/17/22 insulin lispro 100 unit/mL 22 unit subcut TID 03/19/22 12/17/22 subcutaneous pen (Humalog KwikPen (U-100) Insulin) methenamine hippurate 1 gram tablet 1 g PO BID 07/19/22 12/17/22 oxybutynin chloride 15 mg 15 mg PO DAILY 11/06/22 12/17/22 tablet,extended release 24 hr hydrocodone 10 mg-acetaminophen 1 tablet PO Q6-8H PRN Pain 12/17/22 12/17/22 325 mg tablet Allergies Allergy/AdvReac Type Severity Reaction Status Date / Time ceftriaxone Allergy Severe SOB Verified 04/28/23 11:52 cephalexin Allergy Severe Difficulty Verified 04/28/23 11:52 Breathing Cephalosporins Allergy Severe Difficulty Verified 04/28/23 11:52 Breathing lorazepam Allergy Severe Swelling Verified 04/28/23 11:52 metoclopramide Allergy Intermediate Other Verified 04/28/23 11:52 chlorhexidine Allergy Mild BLISTERING Verified 04/28/23 11:52 levofloxacin Allergy Mild Hives / Verified 04/28/23 11:52 Red Face ketorolac Allergy Itching Verified 04/28/23 11:52 latex Allergy Rash Verified 04/28/23 11:52 nitrofurantoin Allergy Itching Verified 04/28/23 11:52 sulfamethoxazole Allergy Itching Verified 04/28/23 11:52 [From Sulfamethoxazole-Trimethoprim] trazodone Allergy Swelling Verified 04/28/23 11:52 of Lip/Tongue/Throat trimethoprim Allergy Itching Verified 04/28/23 11:52 [From Sulfamethoxazole-Trimethoprim] oxycodone AdvReac Mild Vomiting Verified 04/28/23 11:52 amlodipine AdvReac Swelling Verified 04/28/23 11:52 lisinopril AdvReac Swelling Verified 04/28/23 11:52 meropenem AdvReac Rash Verified 04/28/23 11:52 pregabalin AdvReac Swelling Verified 04/28/23 11:52 reslizumab AdvReac Unknown Verified 04/28/23 11:52 Review of Systems Review of Systems: A 10 system review of systems was completed on the patient and is negative except for what is stated in the HPI. Nursing and ancillary documentation was reviewed. [facility] Past Medical History Medical History Anxiety Breast cancer Chronic anticoagulation Chronic back pain Collagenous colitis Congestive heart failure COVID-19 Deep venous thrombosis Depression Irritable bowel syndrome Kidney stone Morbid obesity Multiple thyroid nodules Obstructive sleep apnea on CPAP Overactive bladder Peripheral neuropathy Pulmonary embolism positive for coagulation workup Restless leg syndrome Type 2 diabetes mellitus Surgical History Surgical History History of bilateral mastectomy History of cardiac catheterization Reportedly negative for coronary artery disease. History of cholecystectomy History of colonoscopy History of cystoscopy History of esophagogastroduodenoscopy (EGD) History of right oophorectomy History of total right knee replacement History of umbilical hernia repair History of ureter stent Status post insertion of spinal cord stimulator Family History Family History Mother Diabetes mellitus Acute myocardial infarction Cerebrovascular accident Hypertension Congestive heart failure Father Prostate carcinoma Sibling Breast cancer Acute myocardial infarction Chronic obstructive pulmonary disease Social History Social History Social History: Surrogate medical decision maker: Jimmie Marques, spouse. Code status: Full code. Smoking packs per day: 0 Smoking cigarettes per day: 0.0 Years smoked: 2 Smoking pack-years: 0.00 Smoking status: Former smoker Second hand tobacco smoke exposure: Yes Alcohol intake: never Substance use: never Substance use type: does not use Lack of Transportation: No Lack of Food: Never True Current Housing: I Have Housing Concerned About Future Housing: No Difficulty Paying Gas/Electric Bills: No Difficulty Paying for Meds: No Currently Unemployed: No Education: Decline to Answer Difficulty w/ Childcare or Family Care: No Living arrangements: with family Additional occupation/education comments: Disabled. Spiritual care concerns: No Exam Narrative: GENERAL: Well-appearing, well-nourished, and in no acute distress. HEAD: Normocephalic, atraumatic. EYES: PERRLA and EOMI. ENT: Nares clear, no rhinorrhea or epistaxis. Mucous membranes moist. NECK: Supple. CHEST: Clear to auscultation. No respiratory distress. HEART: Regular rate and rhythm. No murmur heard. Normal peripheral pulses. ABDOMEN: Soft, nontender, nondistended, normal active bowel sounds. EXTREMITIES: Normal range of motion. No edema. SKIN: Warm, dry, no rash. NEURO: No focal deficits. Alert and oriented x3. PSYCH: Normal mood and affect. Course Vital Signs Vital signs: Vital Signs Temperature 39.4 C H 04/28/23 21:14 Pulse Rate 100 04/28/23 21:14 Respiratory Rate 19 04/28/23 21:14 Blood Pressure 159/72 H 04/28/23 21:14 Pulse Oximetry 97 04/28/23 21:14 Oxygen Delivery Room Air 04/28/23 21:14 Temperature 36.9 C 04/29/23 03:20 Pulse Rate 75 04/29/23 03:20 Respiratory Rate 15 04/29/23 03:20 Blood Pressure 135/83 04/29/23 03:20 Pulse Oximetry 95 04/29/23 03:20 Oxygen Delivery Room Air 04/28/23 21:14 Medical Decision Making MDM Narrative Medical decision making narrative: differential diagnosis includes strep pharyngitis, retropharyngeal abscess, peritonsillar abscess laboratory studies were obtained which showed a white blood cell count of 22,000. the patient is currently on steroids. Glucose was 309 troponin was negative BNP was 128 lactic acid was 1.6. CT scan soft tissue neck showed no evidence of retropharyngeal abscess no evidence of peritonsillar abscess. There was evidence of acute tonsillitis. Vital Signs Vital Signs: Vital Signs Temperature 39.4 C H 04/28/23 21:14 Pulse Rate 100 04/28/23 21:14 Respiratory Rate 19 04/28/23 21:14 Blood Pressure 159/72 H 04/28/23 21:14 Pulse Oximetry 97 04/28/23 21:14 Oxygen Delivery Room Air 04/28/23 21:14 Temperature 36.9 C 04/29/23 03:20 Pulse Rate 75 04/29/23 03:20 Respiratory Rate 15 04/29/23 03:20 Blood Pressure 135/83 04/29/23 03:20 Pulse Oximetry 95 04/29/23 03:20 Oxygen Delivery Room Air 04/28/23 21:14 Lab Data 04/28/23 22:51 04/28/23 22:51 Labs: Lab Results 04/28/23 04/29/23 Range/Units 22:51 02:26 WBC 22.1 H (4.5-10.0) K/mm3 RBC 4.18 L (4.2-5.4) M/mm3 Hgb 11.9 L D (12.0-15.0) g/dL Hct 38.6 (37.0-47.0) % MCV 92.3 (80-100) fl MCH 28.5 (26-34) pg MCHC 30.8 L (32-36) g/dl RDW 13.7 (11.5-14.5) % Plt Count 267 (150-375) k/mm3 MPV 9.7 (7.4-10.4) fl Immature Gran % (Auto) 0.6 H (0-0.5) % Neut % (Auto) 83.7 H (45.5-73.1) % Lymph % (Auto) 8.5 L (18.3-44.2) % [place] % (Auto) 6.2 (2.6-8.5) % Eos % (Auto) 0.8 (0-4.4) % Baso % (Auto) 0.2 (0.2-1.2) % Lymph # (Auto) 1.88 (0.9-3.2) K/mm3 [place] # (Auto) 1.4 H (0.1-0.6) K/mm3 Eos # (Auto) 0.2 (0-0.3) K/mm3 Baso # (Auto) 0.1 (0.0-0.1) K/mm3 Abs Immat Gran (auto) 0.14 H (0.00-0.031) K/mm3 Absolute Neuts (auto) 18.5 H (1.3-6.7) K/mm3 Absolute Nucleated RBC 0.0 (0.0-0.012) K/mm3 Nucleated RBC % 0.0 (0.0-0.2) % PT 14.9 H (11.1-14.7) Seconds INR 1.1 APTT 34.1 (22.3-36.8) SECONDS Sodium 135 L (137-145) mmol/L Potassium 4.0 (3.4-5.0) mmol/L Chloride 100 (98-107) mmol/L Carbon Dioxide 29 (22-30) mmol/L Anion Gap 6 L (8-16) mmol/L BUN 14 (7-17) mg/dL Creatinine 0.70 (0.7-1.0) mg/dL Estim Creat Clear Calc 84 ml/min Estimated GFR > 60 (59 - ) Glucose 309 H (65-110) mg/dL Lactic Acid 1.6 (0.7-2.0) mmol/L Calcium 9.0 (8.4-10.2) mg/dL Total Bilirubin 0.7 (0.2-1.3) mg/dL AST 19 (14-36) U/L ALT 18 (6-35) U/L Alkaline Phosphatase 82 (38-126) U/L Troponin I < 0.012 < 0.012 (0.000-0.034) ng/mL NT-Pro-B Natriuret Pep 128 H (19.9-100) pg/mL Total Protein 8.0 (6.3-8.2) g/dL Albumin 3.7 (3.5-5.1) g/dL Lipase 52 (23-300) U/L Discharge Plan Discharge Clinical Impression: Acute streptococcal pharyngitis Patient Disposition: Home, Self-Care Condition: Stable Instructions: Antibiotic Form, Strep Throat (ED) Prescriptions: No Action amitriptyline 25 mg tablet 25 mg PO HS exemestane 25 mg tablet 25 mg PO HS ropinirole 5 mg tablet 5 mg PO HS insulin glargine [Lantus Solostar U-100 Insulin] 100 unit/mL (3 mL) insulin pen 50 unit SUBCUT QAM Xarelto 20 mg tablet 20 mg PO DAILY insulin lispro [Humalog KwikPen Insulin] 100 unit/mL insulin pen 22 unit SUBCUT TID albuterol sulfate 90 mcg/actuation HFA aerosol inhaler 1 inh inhalation QID PRN (Reason: shortness of breath or wheezing) Qty: 6.7 0RF oxybutynin chloride 15 mg tablet extended release 24hr 15 mg PO DAILY ondansetron 4 mg tablet,disintegrating 4 mg PO Q8H PRN (Reason: nausea and vomiting) Qty: 10 0RF ondansetron 4 mg tablet,disintegrating 4 mg PO Q8H PRN (Reason: nausea and vomiting) Qty: 20 0RF amoxicillin 500 mg tablet 500 mg PO Q12H Qty: 20 0RF methenamine hippurate 1 gram tablet 1 g PO BID hydrocodone-acetaminophen 10-325 mg tablet 1 tablet PO Q6-8H PRN (Reason: Pain) Follow-up/Referrals: Shahla,Justen Spicer MD [Primary Care Provider] - Time of Disposition: 05:56
--- NOTE | 2023-04-29 02:17 | ECG_ITS ---
Measurements Intervals [place] Rate: 77 P: 17 NM: 128 QRS: 19 QRSD: 88 T: 47 QT: 398 QTc: 450 Interpretive Statements SINUS RHYTHM WITH SINUS ARRHYTHMIA BASELINE WANDER- III, AVF, V2 NORMAL ECG COMPARED TO ECG 04/28/2023 22:37:15 SINUS ARRHYTHMIA NOW PRESENT Electronically Signed On 04-29-2023 8:44:51 [employer] by Jonatan Parra D.O.
[2023-04-29] MEDS: ONDANSETRON INJ 4 MG/2 ML VIAL IV PUSH (02:34)
[2023-04-29 02:58] LABS: Troponin I < 0.012 ng/mL (0.000-0.034)
[2023-04-29 03:20] VITALS: BP 135/83; PULSE 75; RESP 15; TEMP 36.9; O2SAT 95
[2023-04-29] MEDS: ACETAMINOPHEN 500 MG TABLET 1000 MG PO (04:57)
[2023-04-29] MEDS: AMOXICILLIN 500 MG CAPSULE PO (04:57)
[2023-04-29 06:06] VITALS: BP 132/79; PULSE 76; RESP 20; TEMP 36.6; O2SAT 97
== END 2023-04-29 06:07 | disposition home or self-care (01) ==
PROVIDERS: Emergency Provider Emergency Medicine; PCP Internal Medicine
DX: J02.0 Streptococcal pharyngitis (principal); I50.9 Heart failure, unspecified; E11.42 Type 2 diabetes mellitus with diabetic polyneuropathy; E66.01 Morbid (severe) obesity due to excess calories; Z68.43 Body mass index [BMI] 50.0-59.9, adult; N32.81 Overactive bladder; G25.81 Restless legs syndrome; G47.33 Obstructive sleep apnea (adult) (pediatric); K58.9 Irritable bowel syndrome, unspecified; F41.9 Anxiety disorder, unspecified; Z20.822 Contact with and (suspected) exposure to COVID-19; Z96.651 Presence of right artificial knee joint; Z96.0 Presence of urogenital implants; Z96.82 Presence of neurostimulator; Z86.711 Personal history of pulmonary embolism; Z86.16 Personal history of COVID-19; Z86.718 Personal history of other venous thrombosis and embolism; Z85.3 Personal history of malignant neoplasm of breast; Z87.442 Personal history of urinary calculi; Z90.13 Acquired absence of bilateral breasts and nipples; Z90.49 Acquired absence of other specified parts of digestive tract; Z90.721 Acquired absence of ovaries, unilateral; Z79.4 Long term (current) use of insulin; Z79.01 Long term (current) use of anticoagulants
CPT/HCPCS: 36415; 70491; 71045; 80053; 81001; 83605; 83690; 83880; 84484; 85025; 85610; 85730; 87040; 87147; 87181; 87186; 87637; 87651; 93005; 96361; 96374; 96375; 99284; A9270; J1100; J2405; J7030; Q9967

== ENCOUNTER 2023-05-03 19:58 | Emergency (ER) | payer MEDICARE, MEDICAID, SELFPAY ==
--- NOTE | ~2023-05-03 | XR_ITS ---
EXAMINATION: XR chest 2V Exam Date/Time: 05/03/2023 20:30 IT ADMINISTRATOR HISTORY: SOB, STREP THOART, BODY ACHES Comparison: 04/28/2023. RESULT: Lines, tubes, and devices: Epidural electrodes over the midthoracic spine. Lungs and pleura: Diffuse reticular and reticulonodular opacities. No focal consolidation, pleural e ffusion, or pneumothorax. Cardiomediastinal silhouette: Stable. Other: No acute osseous or upper abdominal finding. IMPRESSION: Pulmonary opacities may represent interstitial edema or respiratory bronchiolitis, depending on the c linical context. Reviewed, dictated and finalized at location K. ADMINISTRATOR IMPRESSION: Pulmonary opacities may represent interstitial edema or respiratory bronchiolit is, depending on the clinical context.
[2023-05-03 20:00] VITALS: BP 176/88; PULSE 89; RESP 24; TEMP 36.9; O2SAT 98
--- NOTE | 2023-05-03 20:04 | ECG_ITS ---
Measurements Intervals [place] Rate: 84 P: 25 [place]: 129 QRS: 2 QRSD: 86 T: 50 QT: 361 QTc: 428 Interpretive Statements SINUS RHYTHM BORDERLINE T WAVE ABNORMALITY- ANTERIOR LEADS BASELINE ARTIFACT- I, II, III, AVR, AVF, V4 BORDERLINE ECG COMPARED TO ECG 04/29/2023 02:59:31 NO SIGNIFICANT CHANGES Electronically Signed On 05-04-2023 6:25:23 [employer] F[employer]GER by Jonatan Parra D.O.
[2023-05-03 20:22] LABS: Basophils Absolute Auto 0.1 K/mm3 (0.0-0.1); Basophils Percent Auto 0.4 % (0.2-1.2); Eosinophils Absolute Auto 0.2 K/mm3 (0-0.3); Eosinophils Percent Auto 1.5 % (0-4.4); Hematocrit 41.3 % (37.0-47.0); Hemoglobin 12.6 g/dL (12.0-15.0); Immature Granulocyte Absolute 0.11 K/mm3 (0.00-0.031); Immature Granulocyte Percent A 0.7 % (0-0.5); Lymphocytes Absolute Auto 3.06 K/mm3 (0.9-3.2); Lymphocytes Percent Auto 19.6 % (18.3-44.2); Mean Corpuscular HGB Conc 30.5 g/dl (32-36); Mean Corpuscular Hemoglobin 28.4 pg (26-34); Mean Corpuscular Volume 93.2 fl (80-100); Mean Platelet Volume 9.6 fl (7.4-10.4); Monocytes Absolute Auto 0.9 K/mm3 (0.1-0.6); Monocytes Percent Auto 5.8 % (2.6-8.5); Neutrophils Absolute Auto 11.2 K/mm3 (1.3-6.7); Platelet Count Result 309 k/mm3 (150-375); Red Blood Count 4.43 M/mm3 (4.2-5.4); Red Cell Distribution Width 13.6 % (11.5-14.5); White Blood Count 15.6 K/mm3 (4.5-10.0)
[2023-05-03 20:46] LABS: Alanine Aminotransferase 24 U/L (6-35); Albumin Level 3.8 g/dL (3.5-5.1); Alkaline Phosphatase 92 U/L (38-126); Anion Gap 6 mmol/L (8-16); Aspartate Amino Transferase 23 U/L (14-36); Bilirubin,Total 0.6 mg/dL (0.2-1.3); Blood Urea Nitrogen 17 mg/dL (7-17); Calcium 9.5 mg/dL (8.4-10.2); Carbon Dioxide 29 mmol/L (22-30); Chloride 100 mmol/L (98-107); Estimated CRCL calculation 84 ml/min; Estimated Glomerular Filt Rate > 60; Glucose 328 mg/dL (65-110); Sodium 135 mmol/L (137-145)
[2023-05-03 20:47] LABS: Lactic Acid Reflex 1.9 mmol/L (0.7-2.0)
[2023-05-03 21:35] VITALS: BP 151/94; PULSE 78; RESP 14; O2SAT 99
[2023-05-03 23:17] VITALS: BP 157/87; PULSE 79; RESP 16; TEMP 36.9; O2SAT 97
--- NOTE | 2023-05-04 00:13 | ED.URI ---
HPI - URI/Sore Throat General Chief Complaint: Shortness of Breath/Dyspnea Stated Complaint: SOB, chills, blood infection Time Seen by Provider: 05/03/23 23:53 Source: patient Mode of arrival: ambulatory Limitations: no limitations History of Present Illness HPI Narrative: This is a 67 year old female that presents to the ER for cold symptoms. Present over the last week. Reports she was diagnosed with strep throat. She has been taking antibiotics as prescribed. Reports she was feeling better but was called and told she had positive blood cultures. Reports she feels short of breath, which is chronic. Does report some myalgias and chills. Does report her sore throat is improving. Denies fever, chest pain or cough. Related Data Home Medications Medication Instructions Recorded Confirmed amitriptyline 25 mg tablet 25 mg PO HS 01/06/20 12/17/22 exemestane 25 mg tablet 25 mg PO HS 01/06/20 12/17/22 insulin glargine 100 unit/mL (3 50 unit subcut QAM 01/06/20 12/17/22 mL) subcutaneous pen (Lantus Solostar U-100 Insulin) rivaroxaban 20 mg tablet (Xarelto) 20 mg PO DAILY 01/06/20 12/17/22 ropinirole 5 mg tablet 5 mg PO HS 01/06/20 12/17/22 insulin lispro 100 unit/mL 22 unit subcut TID 03/19/22 12/17/22 subcutaneous pen (Humalog KwikPen (U-100) Insulin) methenamine hippurate 1 gram tablet 1 g PO BID 07/19/22 12/17/22 oxybutynin chloride 15 mg 15 mg PO DAILY 11/06/22 12/17/22 tablet,extended release 24 hr hydrocodone 10 mg-acetaminophen 1 tablet PO Q6-8H PRN Pain 12/17/22 12/17/22 325 mg tablet Allergies Allergy/AdvReac Type Severity Reaction Status Date / Time ceftriaxone Allergy Severe SOB Verified 04/28/23 11:52 cephalexin Allergy Severe Difficulty Verified 04/28/23 11:52 Breathing Cephalosporins Allergy Severe Difficulty Verified 04/28/23 11:52 Breathing lorazepam Allergy Severe Swelling Verified 04/28/23 11:52 metoclopramide Allergy Intermediate Other Verified 04/28/23 11:52 chlorhexidine Allergy Mild BLISTERING Verified 04/28/23 11:52 levofloxacin Allergy Mild Hives / Verified 04/28/23 11:52 Red Face ketorolac Allergy Itching Verified 04/28/23 11:52 latex Allergy Rash Verified 04/28/23 11:52 nitrofurantoin Allergy Itching Verified 04/28/23 11:52 sulfamethoxazole Allergy Itching Verified 04/28/23 11:52 [From Sulfamethoxazole-Trimethoprim] trazodone Allergy Swelling Verified 04/28/23 11:52 of Lip/Tongue/Throat trimethoprim Allergy Itching Verified 04/28/23 11:52 [From Sulfamethoxazole-Trimethoprim] oxycodone AdvReac Mild Vomiting Verified 04/28/23 11:52 amlodipine AdvReac Swelling Verified 04/28/23 11:52 lisinopril AdvReac Swelling Verified 04/28/23 11:52 meropenem AdvReac Rash Verified 04/28/23 11:52 pregabalin AdvReac Swelling Verified 04/28/23 11:52 reslizumab AdvReac Unknown Verified 04/28/23 11:52 Review of Systems Review of Systems: CONSTITUTIONAL: Reports chills. Denies fever ENT: Reports congestion, sore throat CARDIOVASCULAR: Denies chest pain RESPIRATORY: Reports dyspnea. Denies cough All systems reviewed & are unremarkable except as noted in HPI and below PMFSH Past Medical History Medical History Anxiety Breast cancer Chronic anticoagulation Chronic back pain Collagenous colitis Congestive heart failure COVID-19 Deep venous thrombosis Depression Irritable bowel syndrome Kidney stone Morbid obesity Multiple thyroid nodules Obstructive sleep apnea on CPAP Overactive bladder Peripheral neuropathy Pulmonary embolism positive for coagulation workup Restless leg syndrome Type 2 diabetes mellitus Surgical History Surgical History History of bilateral mastectomy History of cardiac catheterization Reportedly negative for coronary artery disease. History of cholecystectomy History of colonoscopy History of
[2023-05-04] MEDS: ACETAMINOPHEN 500 MG TABLET 1000 MG PO (00:22)
[2023-05-04 00:38] LABS: Creatine Kinase 58 U/L (30-135)
[2023-05-04 00:52] LABS: NT Pro B Type Natriuretic Pept 91 pg/mL (19.9-100); Troponin I < 0.012 ng/mL (0.000-0.034)
[2023-05-04 00:59] LABS: Influenza A QL RT-PCR Negative (Negative); Influenza B QL RT-PCR Negative (Negative); RSV RNA, RT-PCR Negative (Negative); SARS-CoV-2 RNA PCR Negative (Negative)
[2023-05-04 01:25] VITALS: PULSE 78; RESP 15; O2SAT 98
[2023-05-04 02:43] VITALS: BP 136/82; PULSE 90; RESP 15; O2SAT 97
--- NOTE | 2023-05-04 23:33 | ECG_ITS ---
Measurements Intervals [place] Rate: 87 P: 5 NC: 141 QRS: -9 QRSD: 86 T: 39 QT: 364 QTc: 438 Interpretive Statements SINUS RHYTHM RSR' IN V1 OR V2, PROBABLY NORMAL VARIANT VOLTAGE CRITERIA FOR LVH BORDERLINE ECG COMPARED TO ECG 05/03/2023 20:07:52 NO SIGNIFICANT CHANGES Electronically Signed On 05-05-2023 6:31:01 CASINO DEALER by Jonatan Parra D.O.
== END 2023-05-04 02:44 | disposition home or self-care (01) ==
PROVIDERS: Emergency Medicine; Emergency Provider Physician Assistant; PCP Internal Medicine
DX: J02.0 Streptococcal pharyngitis (principal); R78.81 Bacteremia; Z85.3 Personal history of malignant neoplasm of breast; I50.9 Heart failure, unspecified; Z86.711 Personal history of pulmonary embolism; Z79.01 Long term (current) use of anticoagulants; E66.01 Morbid (severe) obesity due to excess calories; Z68.43 Body mass index [BMI] 50.0-59.9, adult; Z86.718 Personal history of other venous thrombosis and embolism; E11.9 Type 2 diabetes mellitus without complications; Z87.891 Personal history of nicotine dependence; Z20.822 Contact with and (suspected) exposure to COVID-19
CPT/HCPCS: 36415; 71046; 80053; 82550; 83605; 83880; 84484; 85025; 87040; 87637; 93005; 99284; A9270

== ENCOUNTER 2023-06-02 13:19 | Emergency (ER) | payer MEDICARE, MEDICAID, SELFPAY ==
[2023-06-02 13:29] VITALS: BP 157/100; PULSE 101; RESP 16; TEMP 37.2; O2SAT 98
--- NOTE | 2023-06-02 13:33 | ED.URI ---
HPI - URI/Sore Throat General Chief Complaint: Upper Respiratory Infection Stated Complaint: Strep symptoms;Uti sympyoms Time Seen by Provider: 06/02/23 13:33 Source: patient Mode of arrival: ambulatory Limitations: no limitations History of Present Illness HPI Narrative: Patient is a 67-year-old female who presents with sore throat, postnasal drip, headache, fever. Patient called primary care office and was told to come here to be tested for UTI and upper respiratory infections. She denies any nausea, vomiting, diarrhea. Denies any burning with urination, frequency or urgency. Patient had strep throat 1 month ago. Related Data Home Medications Medication Instructions Recorded Confirmed amitriptyline 25 mg tablet 25 mg PO HS 01/06/20 06/02/23 exemestane 25 mg tablet 25 mg PO HS 01/06/20 06/02/23 insulin glargine 100 unit/mL (3 50 unit subcut QAM 01/06/20 06/02/23 mL) subcutaneous pen (Lantus Solostar U-100 Insulin) rivaroxaban 20 mg tablet (Xarelto) 20 mg PO DAILY 01/06/20 06/02/23 ropinirole 5 mg tablet 5 mg PO HS 01/06/20 06/02/23 insulin lispro 100 unit/mL 22 unit subcut TID 03/19/22 06/02/23 subcutaneous pen (Humalog KwikPen (U-100) Insulin) methenamine hippurate 1 gram tablet 1 g PO BID 07/19/22 06/02/23 oxybutynin chloride 15 mg 15 mg PO DAILY 11/06/22 06/02/23 tablet,extended release 24 hr hydrocodone 10 mg-acetaminophen 1 tablet PO Q6-8H PRN Pain 12/17/22 06/02/23 325 mg tablet Allergies Allergy/AdvReac Type Severity Reaction Status Date / Time ceftriaxone Allergy Severe SOB Verified 04/28/23 11:52 cephalexin Allergy Severe Difficulty Verified 04/28/23 11:52 Breathing Cephalosporins Allergy Severe Difficulty Verified 04/28/23 11:52 Breathing lorazepam Allergy Severe Swelling Verified 04/28/23 11:52 metoclopramide Allergy Intermediate Other Verified 04/28/23 11:52 chlorhexidine Allergy Mild BLISTERING Verified 04/28/23 11:52 levofloxacin Allergy Mild Hives / Verified 04/28/23 11:52 Red Face ketorolac Allergy Itching Verified 04/28/23 11:52 latex Allergy Rash Verified 04/28/23 11:52 nitrofurantoin Allergy Itching Verified 04/28/23 11:52 sulfamethoxazole Allergy Itching Verified 04/28/23 11:52 [From Sulfamethoxazole-Trimethoprim] trazodone Allergy Swelling Verified 04/28/23 11:52 of Lip/Tongue/Throat trimethoprim Allergy Itching Verified 04/28/23 11:52 [From Sulfamethoxazole-Trimethoprim] oxycodone AdvReac Mild Vomiting Verified 04/28/23 11:52 amlodipine AdvReac Swelling Verified 04/28/23 11:52 lisinopril AdvReac Swelling Verified 04/28/23 11:52 meropenem AdvReac Rash Verified 04/28/23 11:52 pregabalin AdvReac Swelling Verified 04/28/23 11:52 reslizumab AdvReac Unknown Verified 04/28/23 11:52 Review of Systems Review of Systems: All systems reviewed & are unremarkable except as noted in HPI and below Constitutional: Constitutional: Denies body ache(s), Reports fever(s), Reports headache(s), Denies malaise and Denies weakness Eyes: Eyes: Denies loss of vision ENT: Denies otalgia, Denies headache(s), Reports nasal congestion, Denies sinus pain and Reports sore throat Cardiovascular: Cardiovascular: Denies chest pain, Denies irregular heart rhythm and Denies dyspnea Respiratory: Respiratory: Denies cough and Denies dyspnea Gastrointestinal: Gastrointestinal: Denies abdominal pain, Denies melena, Denies hematochezia, Denies diarrhea, Denies nausea and Denies vomiting Musculoskeletal: Musculoskeletal: Denies back pain, Denies myalgias and Denies arthralgias Integumentary/Breasts: Skin/Breast: Denies pruritus and Denies rash Neurologic: Reports headache(s), Denies loss of vision and Denies weakness Psychiatric: Psychiatric: Reports no additional psychiatric complaints PMFSH Past Medical History Medical History Anxiety Breast cancer Chronic anticoagulation Chronic back pain Co
== END 2023-06-02 14:13 | disposition home or self-care (01) ==
PROVIDERS: Emergency Provider Nurse Practitioner Family; PCP Internal Medicine
DX: J02.0 Streptococcal pharyngitis (principal); Z20.822 Contact with and (suspected) exposure to COVID-19; Z87.891 Personal history of nicotine dependence; I50.9 Heart failure, unspecified; E66.01 Morbid (severe) obesity due to excess calories; Z68.43 Body mass index [BMI] 50.0-59.9, adult; G47.33 Obstructive sleep apnea (adult) (pediatric); E11.42 Type 2 diabetes mellitus with diabetic polyneuropathy; G25.81 Restless legs syndrome; Z85.3 Personal history of malignant neoplasm of breast; Z86.718 Personal history of other venous thrombosis and embolism; Z86.711 Personal history of pulmonary embolism; Z90.13 Acquired absence of bilateral breasts and nipples; Z79.01 Long term (current) use of anticoagulants; Z96.651 Presence of right artificial knee joint; Z79.4 Long term (current) use of insulin
CPT/HCPCS: 81003; 87426; 87804; 87880; 99213; G0463

== ENCOUNTER 2023-06-02 23:27 | Emergency (ER) | payer MEDICARE, MEDICAID, SELFPAY ==
--- NOTE | ~2023-06-02 | CT_ITS ---
EXAMINATION: CT soft tissue neck w con DATE: 06/03/2023 07:26 INDICATION: Strep pharyngitis TECHNIQUE: Computed tomography (CT) of the neck was performed with 100 cc of Omnipaque 350 intravenou s contrast. The dose-length product (DLP) was 532.44 mGy-cm. Automated exposure control and iterative reconstruction technique were employed. COMPARISON: 04/29/2023 FINDINGS: There is bilateral tonsillar enlargement resulting in mild narrowing of the upper airway. N o peritonsillar abscess is identified. There is an increase in number of nonenlarged cervical lymph n odes, likely reactive. Multinodular goiter is noted and has been previously evaluated by ultrasound. IMPRESSION: 1. Bilateral tonsillar enlargement with mild narrowing of the upper airway. No peritonsillar abscess identified. Reviewed, dictated and finalized at location F. HEALTH DIRECTOR
[2023-06-02 23:30] VITALS: BP 150/79; PULSE 97; RESP 20; TEMP 37.2; O2SAT 98
[2023-06-03] VITALS (9 sets, daily range): BP systolic 133–169; BP diastolic 66–138; PULSE 75–88; RESP 16–23; O2SAT 98–99
[2023-06-03 05:16] LABS: Basophils Absolute Auto 0.1 K/mm3 (0.0-0.1); Basophils Percent Auto 0.3 % (0.2-1.2); Eosinophils Absolute Auto 0.4 K/mm3 (0-0.3); Eosinophils Percent Auto 1.8 % (0-4.4); Hematocrit 41.9 % (37.0-47.0); Immature Granulocyte Absolute 0.12 K/mm3 (0.00-0.031); Immature Granulocyte Percent A 0.6 % (0-0.5); Lymphocytes Absolute Auto 2.82 K/mm3 (0.9-3.2); Lymphocytes Percent Auto 14.5 % (18.3-44.2); Mean Corpuscular Hemoglobin 28.6 pg (26-34); Mean Corpuscular Volume 92.1 fl (80-100); Mean Platelet Volume 9.8 fl (7.4-10.4); Monocytes Absolute Auto 1.2 K/mm3 (0.1-0.6); Monocytes Percent Auto 6.1 % (2.6-8.5); Neutrophils Absolute Auto 14.9 K/mm3 (1.3-6.7); Neutrophils Percent Auto 76.7 % (45.5-73.1); Platelet Count Result 278 k/mm3 (150-375); Red Blood Count 4.55 M/mm3 (4.2-5.4); Red Cell Distribution Width 13.6 % (11.5-14.5); White Blood Count 19.4 K/mm3 (4.5-10.0)
[2023-06-03 05:21] LABS: Alanine Aminotransferase 20 U/L (6-35); Albumin Level 3.9 g/dL (3.5-5.1); Alkaline Phosphatase 92 U/L (38-126); Anion Gap 6 mmol/L (8-16); Aspartate Amino Transferase 25 U/L (14-36); Bilirubin,Total 1.3 mg/dL (0.2-1.3); Blood Urea Nitrogen 10 mg/dL (7-17); Carbon Dioxide 28 mmol/L (22-30); Chloride 103 mmol/L (98-107); Estimated CRCL calculation 97 ml/min; Estimated Glomerular Filt Rate > 60; Glucose 207 mg/dL (65-110); Potassium 4.1 mmol/L (3.4-5.0); Sodium 137 mmol/L (137-145)
[2023-06-03 05:57] LABS: Influenza A QL RT-PCR Negative (Negative); Influenza B QL RT-PCR Negative (Negative); RSV RNA, RT-PCR Negative (Negative); SARS-CoV-2 RNA PCR Negative (Negative)
[2023-06-03] MEDS: AMPICILLIN SULB 3 GM/NS 100 ML 3 GM/100 ML VIAL IVPB (06:49)
--- NOTE | 2023-06-03 07:29 | ED.GENADULT ---
HPI - General Adult General Chief complaint: Unspecified <Dajuan Julio MD - Last Filed: 06/03/23 07:31> Stated complaint: strep+, dehydration <Dajuan Julio MD - Last Filed: 06/03/23 07:31> Time Seen by Provider: 06/03/23 06:22 <Dajuan Julio MD - Last Filed: 06/03/23 07:31> History of Present Illness HPI narrative: Patient is a 67-year-old female who presents emergency department with chief complaint of sore throat. Patient reports that she has had a sore throat for the last few days reports she has a muffled voice and reports that she has not been eating and drinking much. Patient reports she was seen in urgent care and diagnosed with strep pharyngitis and started on Augmentin. Patient reports he has been unable take antibiotic and reports that she feels extremely dehydrated. <Dajuan Julio MD - Last Filed: 06/03/23 07:31> Related Data Home medications: Home Medications Medication Instructions Recorded Confirmed amitriptyline 25 mg tablet 25 mg PO HS 01/06/20 06/02/23 exemestane 25 mg tablet 25 mg PO HS 01/06/20 06/02/23 insulin glargine 100 unit/mL (3 50 unit subcut QAM 01/06/20 06/02/23 mL) subcutaneous pen (Lantus Solostar U-100 Insulin) rivaroxaban 20 mg tablet (Xarelto) 20 mg PO DAILY 01/06/20 06/02/23 ropinirole 5 mg tablet 5 mg PO HS 01/06/20 06/02/23 insulin lispro 100 unit/mL 22 unit subcut TID 03/19/22 06/02/23 subcutaneous pen (Humalog KwikPen (U-100) Insulin) methenamine hippurate 1 gram tablet 1 g PO BID 07/19/22 06/02/23 oxybutynin chloride 15 mg 15 mg PO DAILY 11/06/22 06/02/23 tablet,extended release 24 hr hydrocodone 10 mg-acetaminophen 1 tablet PO Q6-8H PRN Pain 12/17/22 06/02/23 325 mg tablet <Dajuan Julio MD - Last Filed: 06/03/23 07:31> Allergies/adverse reactions: Allergies Allergy/AdvReac Type Severity Reaction Status Date / Time ceftriaxone Allergy Severe SOB Verified 04/28/23 11:52 cephalexin Allergy Severe Difficulty Verified 04/28/23 11:52 Breathing Cephalosporins Allergy Severe Difficulty Verified 04/28/23 11:52 Breathing lorazepam Allergy Severe Swelling Verified 04/28/23 11:52 metoclopramide Allergy Intermediate Other Verified 04/28/23 11:52 chlorhexidine Allergy Mild BLISTERING Verified 04/28/23 11:52 levofloxacin Allergy Mild Hives / Verified 04/28/23 11:52 Red Face ketorolac Allergy Itching Verified 04/28/23 11:52 latex Allergy Rash Verified 04/28/23 11:52 nitrofurantoin Allergy Itching Verified 04/28/23 11:52 sulfamethoxazole Allergy Itching Verified 04/28/23 11:52 [From Sulfamethoxazole-Trimethoprim] trazodone Allergy Swelling Verified 04/28/23 11:52 of Lip/Tongue/Throat trimethoprim Allergy Itching Verified 04/28/23 11:52 [From Sulfamethoxazole-Trimethoprim] oxycodone AdvReac Mild Vomiting Verified 04/28/23 11:52 amlodipine AdvReac Swelling Verified 04/28/23 11:52 lisinopril AdvReac Swelling Verified 04/28/23 11:52 meropenem AdvReac Rash Verified 04/28/23 11:52 pregabalin AdvReac Swelling Verified 04/28/23 11:52 reslizumab AdvReac Unknown Verified 04/28/23 11:52 <Dajuan Julio MD - Last Filed: 06/03/23 07:31> Review of Systems Review of Systems: A 10 system review of systems was completed on the patient and is negative except for what is stated in the HPI. Nursing and ancillary documentation was reviewed. <Dajuan Julio MD - Last Filed: 06/03/23 07:31> [facility] Past Medical History Medical History: Medical History Anxiety Breast cancer Chronic anticoagulation Chronic back pain Collagenous colitis Congestive heart failure COVID-19 Deep venous thrombosis Depression Irritable bowel syndrome Kidney stone Morbid obesity Multiple thyroid nodules Obstructive sleep apnea on CPAP Overactive bladder Peripheral neur
[2023-06-03] MEDS: ACETAMINOPHEN 325 MG TABLET 650 MG PO (08:22)
== END 2023-06-03 08:40 | disposition home or self-care (01) ==
PROVIDERS: Emergency Medicine; Emergency Provider Emergency Medicine; PCP Internal Medicine
DX: J03.90 Acute tonsillitis, unspecified (principal); Z20.822 Contact with and (suspected) exposure to COVID-19; I50.9 Heart failure, unspecified; E11.42 Type 2 diabetes mellitus with diabetic polyneuropathy; E66.01 Morbid (severe) obesity due to excess calories; Z68.43 Body mass index [BMI] 50.0-59.9, adult; G47.33 Obstructive sleep apnea (adult) (pediatric); G25.81 Restless legs syndrome; K58.9 Irritable bowel syndrome, unspecified; F41.9 Anxiety disorder, unspecified; Z96.653 Presence of artificial knee joint, bilateral; Z96.82 Presence of neurostimulator; Z86.718 Personal history of other venous thrombosis and embolism; Z87.442 Personal history of urinary calculi; Z86.711 Personal history of pulmonary embolism; Z86.16 Personal history of COVID-19; Z85.3 Personal history of malignant neoplasm of breast; Z87.891 Personal history of nicotine dependence; Z90.13 Acquired absence of bilateral breasts and nipples; Z90.49 Acquired absence of other specified parts of digestive tract; Z90.721 Acquired absence of ovaries, unilateral; Z79.01 Long term (current) use of anticoagulants; Z79.4 Long term (current) use of insulin
CPT/HCPCS: 36415; 70491; 80053; 81003; 85025; 87426; 87637; 87804; 87880; 96365; 96375; 99284; A9270; J0295; J1100; Q9967

== ENCOUNTER 2023-06-22 17:00 | Emergency (ER) | payer MEDICARE, MEDICAID, SELFPAY ==
[2023-06-22] VITALS (14 sets, daily range): BP systolic 118–168; BP diastolic 69–92; PULSE 79–92; RESP 13–22; TEMP 36.7; O2SAT 96–100
--- NOTE | ~2023-06-22 | CT_ITS ---
EXAMINATION: CTA chest PE protocol DATE: 06/22/2023 20:49 INDICATION: Shortness of breath TECHNIQUE: Computed tomography angiography (CTA) of the chest was performed with 100 mL Omnipaque-350 intravenous contrast timed to evaluate the pulmonary arteries. Coronal maximum intensity projection 3D-reconstructions were created by the technologist. The dose-length product (DLP) was 880.73 mGy-cm. Automated exposure control and iterative reconstruction technique were employed. COMPARISON: 10/28/2022 FINDINGS: The pulmonary arteries are well-opacified. No pulmonary embolism is identified. No patholo gically enlarged thoracic lymph nodes are identified. The heart size is normal. There is mild atelect asis of the lungs. No pleural effusion or pneumothorax. Multinodular goiter is noted. There is severe thoracic spondylosis. Changes of cholecystectomy are noted. There are neurostimulator leads in the c entral spinal canal over the mid/lower thoracic spine. IMPRESSION: 1. No pulmonary embolism identified. Mild atelectasis of the lungs. Reviewed, dictated and finalized at location F. RUSH PAINTER
--- NOTE | ~2023-06-22 | XR_ITS ---
EXAMINATION: XR chest 2V DATE: 06/22/2023 17:48 INDICATION: Shortness of breath TECHNIQUE: PA and lateral views of the chest are obtained. COMPARISON: 05/03/2023 FINDINGS: There is a mild diffuse interstitial pattern. No pleural effusion or pneumothorax. The card iomediastinal silhouette is normal. There is moderate thoracic spondylosis. Surgical clips in the rig ht upper quadrant are likely from prior cholecystectomy. IMPRESSION: 1. Mild diffuse interstitial pattern which could reflect pulmonary edema and/or pneumonia. Reviewed, dictated and finalized at location F. TRACER
--- NOTE | 2023-06-22 17:03 | ECG_ITS ---
Measurements Intervals [place] Rate: 92 P: 3 RI: 145 QRS: -1 QRSD: 93 T: 36 QT: 364 QTc: 452 Interpretive Statements SINUS RHYTHM BORDERLINE ST-T WAVE ABNORMALITY- HIGH LATERAL LEADS BASELINE ARTIFACT- I, III BORDERLINE ECG COMPARED TO ECG 05/03/2023 23:33:44 NO SIGNIFICANT CHANGES Electronically Signed On 06-23-2023 9:21:53 CURRICULUM MANAGER by Jonatan Parra D.O.
[2023-06-22 17:39] LABS: Basophils Percent Auto 0.4 % (0.2-1.2); Eosinophils Absolute Auto 0.3 K/mm3 (0-0.3); Eosinophils Percent Auto 2.8 % (0-4.4); Hematocrit 41.1 % (37.0-47.0); Hemoglobin 12.9 g/dL (12.0-15.0); Immature Granulocyte Absolute 0.04 K/mm3 (0.00-0.031); Immature Granulocyte Percent A 0.4 % (0-0.5); Lymphocytes Absolute Auto 3.26 K/mm3 (0.9-3.2); Lymphocytes Percent Auto 32.1 % (18.3-44.2); Mean Corpuscular HGB Conc 31.4 g/dl (32-36); Mean Corpuscular Hemoglobin 28.7 pg (26-34); Mean Corpuscular Volume 91.5 fl (80-100); Mean Platelet Volume 9.8 fl (7.4-10.4); Monocytes Absolute Auto 0.7 K/mm3 (0.1-0.6); Monocytes Percent Auto 6.7 % (2.6-8.5); Neutrophils Absolute Auto 5.9 K/mm3 (1.3-6.7); Neutrophils Percent Auto 57.6 % (45.5-73.1); Platelet Count Result 339 k/mm3 (150-375); Red Blood Count 4.49 M/mm3 (4.2-5.4); Red Cell Distribution Width 13.4 % (11.5-14.5); White Blood Count 10.2 K/mm3 (4.5-10.0)
[2023-06-22 17:50] LABS: INR 1.1; Partial Thromboplastin Time 27.7 SECONDS (22.3-36.8); Prothrombin Time 14.2 Seconds (11.1-14.7)
[2023-06-22 17:51] LABS: Alanine Aminotransferase 23 U/L (6-35); Albumin Level 4.3 g/dL (3.5-5.1); Alkaline Phosphatase 83 U/L (38-126); Anion Gap 7 mmol/L (8-16); Aspartate Amino Transferase 27 U/L (14-36); Bilirubin,Total 0.7 mg/dL (0.2-1.3); Blood Urea Nitrogen 16 mg/dL (7-17); Carbon Dioxide 28 mmol/L (22-30); Chloride 103 mmol/L (98-107); Estimated CRCL calculation 83 ml/min; Estimated Glomerular Filt Rate > 60; Glucose 204 mg/dL (65-110); Lipase 52 U/L (23-300); Potassium 3.7 mmol/L (3.4-5.0); Sodium 138 mmol/L (137-145)
[2023-06-22 18:02] LABS: Troponin I < 0.012 ng/mL (0.000-0.034)
[2023-06-22 19:16] LABS: Glucose Point of Care 92 mg/dl (65-105)
--- NOTE | 2023-06-22 19:30 | ED.GENADULT ---
HPI - General Adult General Chief complaint: Shortness of Breath/Dyspnea Stated complaint: INT SHORT OF BREATH,CHEST PAIN Time Seen by Provider: 06/22/23 19:17 History of Present Illness HPI narrative: Patient is a 68-year-old female well known to the emergency department that presents to the ER with chief complaint of shortness of breath. The patient reports that yesterday she noticed that when she would be talking she would run out of breath and also noticed whenever she was eating she would get short of breath. The patient reports that today she had an episode of chest discomfort that went across her chest the patient states it was tight. The patient reports this feels similar to whenever she had a pulmonary embolism in the past but does report that she has been compliant with her anticoagulants. The patient recently had multiple ER visits for strep pharyngitis Related Data Home Medications Medication Instructions Recorded Confirmed amitriptyline 25 mg tablet 25 mg PO HS 01/06/20 06/02/23 exemestane 25 mg tablet 25 mg PO HS 01/06/20 06/02/23 insulin glargine 100 unit/mL (3 50 unit subcut QAM 01/06/20 06/02/23 mL) subcutaneous pen (Lantus Solostar U-100 Insulin) rivaroxaban 20 mg tablet (Xarelto) 20 mg PO DAILY 01/06/20 06/02/23 ropinirole 5 mg tablet 5 mg PO HS 01/06/20 06/02/23 insulin lispro 100 unit/mL 22 unit subcut TID 03/19/22 06/02/23 subcutaneous pen (Humalog KwikPen (U-100) Insulin) methenamine hippurate 1 gram tablet 1 g PO BID 07/19/22 06/02/23 oxybutynin chloride 15 mg 15 mg PO DAILY 11/06/22 06/02/23 tablet,extended release 24 hr hydrocodone 10 mg-acetaminophen 1 tablet PO Q6-8H PRN Pain 12/17/22 06/02/23 325 mg tablet Allergies Allergy/AdvReac Type Severity Reaction Status Date / Time ceftriaxone Allergy Severe SOB Verified 04/28/23 11:52 cephalexin Allergy Severe Difficulty Verified 04/28/23 11:52 Breathing Cephalosporins Allergy Severe Difficulty Verified 04/28/23 11:52 Breathing lorazepam Allergy Severe Swelling Verified 04/28/23 11:52 metoclopramide Allergy Intermediate Other Verified 04/28/23 11:52 chlorhexidine Allergy Mild BLISTERING Verified 04/28/23 11:52 levofloxacin Allergy Mild Hives / Verified 04/28/23 11:52 Red Face ketorolac Allergy Itching Verified 04/28/23 11:52 latex Allergy Rash Verified 04/28/23 11:52 nitrofurantoin Allergy Itching Verified 04/28/23 11:52 sulfamethoxazole Allergy Itching Verified 04/28/23 11:52 [From Sulfamethoxazole-Trimethoprim] trazodone Allergy Swelling Verified 04/28/23 11:52 of Lip/Tongue/Throat trimethoprim Allergy Itching Verified 04/28/23 11:52 [From Sulfamethoxazole-Trimethoprim] oxycodone AdvReac Mild Vomiting Verified 04/28/23 11:52 amlodipine AdvReac Swelling Verified 04/28/23 11:52 lisinopril AdvReac Swelling Verified 04/28/23 11:52 meropenem AdvReac Rash Verified 04/28/23 11:52 pregabalin AdvReac Swelling Verified 04/28/23 11:52 reslizumab AdvReac Unknown Verified 04/28/23 11:52 Review of Systems Review of Systems: A 10 system review of systems was completed on the patient and is negative except for what is stated in the HPI. Nursing and ancillary documentation was reviewed. [facility] Past Medical History Medical History Anxiety Breast cancer Chronic anticoagulation Chronic back pain Collagenous colitis Congestive heart failure COVID-19 Deep venous thrombosis Depression Irritable bowel syndrome Kidney stone Morbid obesity Multiple thyroid nodules Obstructive sleep apnea on CPAP Overactive bladder Peripheral neuropathy Pulmonary embolism positive for coagulation workup Restless leg syndrome Type 2 diabetes mellitus Surgical History Surgical History History of bilateral mastectomy History of cardiac catheterization Reportedly negative for
[2023-06-22 19:46] LABS: NT Pro B Type Natriuretic Pept 64 pg/mL (19.9-100)
[2023-06-22 20:02] LABS: Glucose Point of Care 66 mg/dl (65-105)
[2023-06-22] MEDS: DEXTROSE 50% 25 GM/50 ML SYRINGE IV PUSH (20:18)
[2023-06-22 20:40] LABS: Glucose Point of Care 188 mg/dl (65-105)
[2023-06-22 20:43] LABS: Troponin I < 0.012 ng/mL (0.000-0.034)
== END 2023-06-22 21:59 | disposition home or self-care (01) ==
PROVIDERS: Preventive Medicine Aerospace Medicine; Emergency Provider Emergency Medicine; PCP Internal Medicine
DX: R06.00 Dyspnea, unspecified (principal); I50.9 Heart failure, unspecified; E11.42 Type 2 diabetes mellitus with diabetic polyneuropathy; E66.01 Morbid (severe) obesity due to excess calories; Z68.43 Body mass index [BMI] 50.0-59.9, adult; G47.33 Obstructive sleep apnea (adult) (pediatric); G25.81 Restless legs syndrome; K58.9 Irritable bowel syndrome, unspecified; F41.9 Anxiety disorder, unspecified; Z96.653 Presence of artificial knee joint, bilateral; Z96.82 Presence of neurostimulator; Z86.718 Personal history of other venous thrombosis and embolism; Z87.442 Personal history of urinary calculi; Z86.711 Personal history of pulmonary embolism; Z86.16 Personal history of COVID-19; Z85.3 Personal history of malignant neoplasm of breast; Z87.891 Personal history of nicotine dependence; Z90.13 Acquired absence of bilateral breasts and nipples; Z90.49 Acquired absence of other specified parts of digestive tract; Z90.721 Acquired absence of ovaries, unilateral; Z79.01 Long term (current) use of anticoagulants; Z79.4 Long term (current) use of insulin; R94.31 Abnormal electrocardiogram [ECG] [EKG]
CPT/HCPCS: 36415; 71046; 71275; 80053; 82948; 83690; 83880; 84484; 85025; 85610; 85730; 93005; 96374; 99284; Q9967

== ENCOUNTER 2023-06-25 12:19 | Emergency (ER) | payer MEDICARE, MEDICAID, SELFPAY ==
[2023-06-25 12:28] VITALS: BP 156/93; PULSE 79; RESP 16; TEMP 36.4; O2SAT 98
--- NOTE | 2023-06-25 13:01 | ED.URI ---
HPI - URI/Sore Throat General Chief Complaint: Upper Respiratory Infection Stated Complaint: Sore Throat Time Seen by Provider: 06/25/23 12:39 Source: patient, RN notes reviewed and old records reviewed Mode of arrival: ambulatory Limitations: no limitations History of Present Illness HPI Narrative: Patient presents today complaining of sore throat, postnasal drip, and bilateral ear clogging since yesterday. Currently rates her pain 5/10 and has been taking Tylenol without much relief. Patient had strep throat in April and May and was on amoxicillin and Augmentin respectively. States she did finish both courses of antibiotics completely. Related Data Home Medications Medication Instructions Recorded Confirmed amitriptyline 25 mg tablet 25 mg PO HS 01/06/20 06/25/23 exemestane 25 mg tablet 25 mg PO HS 01/06/20 06/25/23 insulin glargine 100 unit/mL (3 50 unit subcut QAM 01/06/20 06/25/23 mL) subcutaneous pen (Lantus Solostar U-100 Insulin) rivaroxaban 20 mg tablet (Xarelto) 20 mg PO DAILY 01/06/20 06/25/23 ropinirole 5 mg tablet 5 mg PO HS 01/06/20 06/25/23 insulin lispro 100 unit/mL 22 unit subcut TID 03/19/22 06/25/23 subcutaneous pen (Humalog KwikPen (U-100) Insulin) methenamine hippurate 1 gram tablet 1 g PO BID 07/19/22 06/25/23 oxybutynin chloride 15 mg 15 mg PO DAILY 11/06/22 06/25/23 tablet,extended release 24 hr cyclobenzaprine 5 mg tablet 5 mg PO DIRECTED 06/25/23 06/25/23 gabapentin 300 mg capsule 300 mg PO DIRECTED 06/25/23 06/25/23 tirzepatide 2.5 mg/0.5 mL 2.5 mg subcut WEEKLY 06/25/23 06/25/23 subcutaneous pen injector (Scott) Allergies Allergy/AdvReac Type Severity Reaction Status Date / Time ceftriaxone Allergy Severe SOB Verified 06/25/23 12:36 cephalexin Allergy Severe Difficulty Verified 06/25/23 12:36 Breathing Cephalosporins Allergy Severe Difficulty Verified 06/25/23 12:36 Breathing lorazepam Allergy Severe Swelling Verified 06/25/23 12:36 metoclopramide Allergy Intermediate Other Verified 06/25/23 12:36 chlorhexidine Allergy Mild BLISTERING Verified 06/25/23 12:36 levofloxacin Allergy Mild Hives / Verified 06/25/23 12:36 Red Face ketorolac Allergy Itching Verified 06/25/23 12:36 latex Allergy Rash Verified 06/25/23 12:36 nitrofurantoin Allergy Itching Verified 06/25/23 12:36 sulfamethoxazole Allergy Itching Verified 06/25/23 12:36 [From Sulfamethoxazole-Trimethoprim] trazodone Allergy Swelling Verified 06/25/23 12:36 of Lip/Tongue/Throat trimethoprim Allergy Itching Verified 06/25/23 12:36 [From Sulfamethoxazole-Trimethoprim] oxycodone AdvReac Mild Vomiting Verified 06/25/23 12:36 amlodipine AdvReac Swelling Verified 06/25/23 12:36 lisinopril AdvReac Swelling Verified 06/25/23 12:36 meropenem AdvReac Rash Verified 06/25/23 12:36 pregabalin AdvReac Swelling Verified 06/25/23 12:36 reslizumab AdvReac Unknown Verified 06/25/23 12:36 Review of Systems Review of Systems: CONSTITUTIONAL: Denies body aches, fever, chills, or sweats. EYES: Denies visual changes, redness, or discharge. ENT: Denies rhinorrhea, congestion. + sore throat, bilateral ear clogging, postnasal drip CARDIOVASCULAR: Denies chest pain, palpitations, or edema. RESPIRATORY: Denies cough or dyspnea. GASTROINTESTINAL: Denies abdominal pain, nausea, vomiting, or diarrhea. GENITOURINARY: Denies dysuria or hematuria. SKIN: Denies rash, itching, or wounds. MUSCULOSKELETAL: Denies back pain, joint pain, or myalgia. NEUROLOGIC: Denies headache, numbness, tingling, or weakness. PSYCH: Denies depression or anxiety. [facility] Past Medical History Medical History Anxiety Breast cancer Chronic anticoagulation Chronic back pain Collagenous colitis Congestive heart failure COVID-19 Deep venous thrombosis Depression Irritable bowel syndrome Kidney stone Morbid obesity Multiple thyroid no
[2023-06-25] MEDS: dexAMETHasone SOD PHOS INJ 10 MG/ML 1 ML VIAL 8 MG IM (13:08)
== END 2023-06-25 13:14 | disposition home or self-care (01) ==
PROVIDERS: Emergency Provider Nurse Practitioner; PCP Internal Medicine
DX: J02.0 Streptococcal pharyngitis (principal); I50.9 Heart failure, unspecified; E11.9 Type 2 diabetes mellitus without complications; Z87.891 Personal history of nicotine dependence; Z79.899 Other long term (current) drug therapy; Z79.4 Long term (current) use of insulin; Z85.3 Personal history of malignant neoplasm of breast
CPT/HCPCS: 87880; 96372; 99213; G0463; J1100

== ENCOUNTER 2023-06-26 02:46 | Emergency (ER) | payer MEDICARE, MEDICAID, SELFPAY ==
--- NOTE | ~2023-06-26 | XR_ITS ---
EXAMINATION: XR chest 1V portable DATE: 06/26/2023 03:42 INDICATION: Cough. TECHNIQUE: A single frontal view of the chest was obtained. COMPARISON: Chest 2 views 06/22/2023 FINDINGS: There is no pneumonia, pleural effusion, or pneumothorax. The heart size is normal. Epidura l electrodes are noted. IMPRESSION: 1. No acute cardiopulmonary disease. Reviewed, dictated and finalized at location E. COOLER
[2023-06-26 02:50] VITALS: BP 178/94; PULSE 96; RESP 19; TEMP 36.6; O2SAT 99
[2023-06-26 03:01] LABS: Glucose Point of Care 413 mg/dl (65-105)
--- NOTE | 2023-06-26 03:03 | ED.GENADULT ---
HPI - General Adult General Chief complaint: Recheck/Abnormal Lab/Rx Stated complaint: High BG after steroids, strep Time Seen by Provider: 06/26/23 02:51 History of Present Illness HPI narrative: Patient is a 68-year-old female who presents emergency department with chief complaint of high blood sugar. Patient reports that she was diagnosed with strep and was given a dose of steroids by urgent care patient reports she is currently on antibiotics patient reports that she has given herself several doses of insulin but her blood sugars keep coming back up Related Data Home Medications Medication Instructions Recorded Confirmed amitriptyline 25 mg tablet 25 mg PO HS 01/06/20 06/25/23 exemestane 25 mg tablet 25 mg PO HS 01/06/20 06/25/23 insulin glargine 100 unit/mL (3 50 unit subcut QAM 01/06/20 06/25/23 mL) subcutaneous pen (Lantus Solostar U-100 Insulin) rivaroxaban 20 mg tablet (Xarelto) 20 mg PO DAILY 01/06/20 06/25/23 ropinirole 5 mg tablet 5 mg PO HS 01/06/20 06/25/23 insulin lispro 100 unit/mL 22 unit subcut TID 03/19/22 06/25/23 subcutaneous pen (Humalog KwikPen (U-100) Insulin) methenamine hippurate 1 gram tablet 1 g PO BID 07/19/22 06/25/23 oxybutynin chloride 15 mg 15 mg PO DAILY 11/06/22 06/25/23 tablet,extended release 24 hr cyclobenzaprine 5 mg tablet 5 mg PO DIRECTED 06/25/23 06/25/23 gabapentin 300 mg capsule 300 mg PO DIRECTED 06/25/23 06/25/23 tirzepatide 2.5 mg/0.5 mL 2.5 mg subcut WEEKLY 06/25/23 06/25/23 subcutaneous pen injector (Scott) Allergies Allergy/AdvReac Type Severity Reaction Status Date / Time ceftriaxone Allergy Severe SOB Verified 06/26/23 03:17 cephalexin Allergy Severe Difficulty Verified 06/26/23 03:17 Breathing Cephalosporins Allergy Severe Difficulty Verified 06/26/23 03:17 Breathing lorazepam Allergy Severe Swelling Verified 06/26/23 03:17 metoclopramide Allergy Intermediate Other Verified 06/26/23 03:17 chlorhexidine Allergy Mild BLISTERING Verified 06/26/23 03:17 levofloxacin Allergy Mild Hives / Verified 06/26/23 03:17 Red Face ketorolac Allergy Itching Verified 06/26/23 03:17 latex Allergy Rash Verified 06/26/23 03:17 nitrofurantoin Allergy Itching Verified 06/26/23 03:17 sulfamethoxazole Allergy Itching Verified 06/26/23 03:17 [From Sulfamethoxazole-Trimethoprim] trazodone Allergy Swelling Verified 06/26/23 03:17 of Lip/Tongue/Throat trimethoprim Allergy Itching Verified 06/26/23 03:17 [From Sulfamethoxazole-Trimethoprim] oxycodone AdvReac Mild Vomiting Verified 06/26/23 03:17 amlodipine AdvReac Swelling Verified 06/26/23 03:17 lisinopril AdvReac Swelling Verified 06/26/23 03:17 meropenem AdvReac Rash Verified 06/26/23 03:17 pregabalin AdvReac Swelling Verified 06/26/23 03:17 reslizumab AdvReac Unknown Verified 06/26/23 03:17 Review of Systems Review of Systems: A 10 system review of systems was completed on the patient and is negative except for what is stated in the HPI. Nursing and ancillary documentation was reviewed. [facility] Past Medical History Medical History Anxiety Breast cancer Chronic anticoagulation Chronic back pain Collagenous colitis Congestive heart failure COVID-19 Deep venous thrombosis Depression Irritable bowel syndrome Kidney stone Morbid obesity Multiple thyroid nodules Obstructive sleep apnea on CPAP Overactive bladder Peripheral neuropathy Pulmonary embolism positive for coagulation workup Restless leg syndrome Type 2 diabetes mellitus Surgical History Surgical History History of bilateral mastectomy History of cardiac catheterization Reportedly negative for coronary artery disease. History of cholecystectomy History of colonoscopy History of cystoscopy History of esophagogastroduodenoscopy (EGD) History of right oophorec
[2023-06-26] MEDS: SODIUM CHLORIDE 0.9% IV 1,000 ML 999 ML IV CONT (03:10)
[2023-06-26] MEDS: INSULIN HUMAN REGULAR (*BKC) 100 UNITS/ML 10 UNITS IV PUSH (03:11)
[2023-06-26 03:21] LABS: Basophils Percent Auto 0.1 % (0.2-1.2); Hematocrit 41.4 % (37.0-47.0); Hemoglobin 12.9 g/dL (12.0-15.0); Immature Granulocyte Absolute 0.07 K/mm3 (0.00-0.031); Immature Granulocyte Percent A 0.7 % (0-0.5); Lymphocytes Absolute Auto 1.42 K/mm3 (0.9-3.2); Lymphocytes Percent Auto 14.2 % (18.3-44.2); Mean Corpuscular HGB Conc 31.2 g/dl (32-36); Mean Corpuscular Hemoglobin 28.1 pg (26-34); Mean Corpuscular Volume 90.2 fl (80-100); Mean Platelet Volume 9.8 fl (7.4-10.4); Monocytes Absolute Auto 0.3 K/mm3 (0.1-0.6); Monocytes Percent Auto 3.2 % (2.6-8.5); Neutrophils Absolute Auto 8.2 K/mm3 (1.3-6.7); Neutrophils Percent Auto 81.8 % (45.5-73.1); Platelet Count Result 333 k/mm3 (150-375); Red Blood Count 4.59 M/mm3 (4.2-5.4); Red Cell Distribution Width 13.3 % (11.5-14.5)
[2023-06-26 03:26] LABS: Fractional Inspired Oxygen 21 %; HCO3 VBG 24.1 mEq/l (24.0-30.0); PCO2 VBG 38.4 mmHg (42.0-48.0); PO2 VBG 65.7 mmHg (35.0-45.0)
[2023-06-26 03:29] LABS: Device ROOM AIR; pH VBG 7.415 (7.300-7.400)
[2023-06-26 03:31] LABS: Alanine Aminotransferase 39 U/L (6-35); Albumin Level 4.2 g/dL (3.5-5.1); Alkaline Phosphatase 85 U/L (38-126); Anion Gap 10 mmol/L (8-16); Aspartate Amino Transferase 32 U/L (14-36); Bilirubin,Total 0.6 mg/dL (0.2-1.3); Blood Urea Nitrogen 23 mg/dL (7-17); Calcium 9.9 mg/dL (8.4-10.2); Carbon Dioxide 22 mmol/L (22-30); Chloride 101 mmol/L (98-107); Estimated CRCL calculation 100 ml/min; Estimated Glomerular Filt Rate > 60; Glucose 414 mg/dL (65-110); Magnesium 1.8 mg/dL (1.6-2.3); Potassium 4.4 mmol/L (3.4-5.0); Sodium 133 mmol/L (137-145)
[2023-06-26 03:32] LABS: Lactic Acid Reflex 3.3 mmol/L (0.7-2.0)
[2023-06-26 03:42] LABS: Beta-Hydroxybutyrate/Acetoacetate 0.15 mmol/L (0.02-0.27)
[2023-06-26 04:00] LABS: Appearance Urine Clear (Clear); Bacteria Urine None Seen /hpf; Bilirubin Urine Negative (Negative); Color Urine Yellow (Yellow); Glucose Urine UA 3+ mg/dL (Negative); Ketones Urine Negative (Negative); Leukocyte Esterase Ur Negative LEU/UL (Negative); Nitrate Urine Negative (Negative); Non Pathogenic Casts 0-2; Protein Urine Negative (Negative); RBC Urine 0-2 /hpf (0-2); Specific Grav Ur 1.031 (1.001-1.035); Squamous Epithelial Cell Urine None seen /hpf (Few); Urobilinogen Urine 0.2 mg/dL (<2.0); pH Urine 5.5 (5.0-9.0)
[2023-06-26 04:02] LABS: Add Urine Microscopic? YES
[2023-06-26] MEDS: LIDOCAINE HCL 2% VISC SOLN 15 ML UDC PO (05:02)
[2023-06-26 05:08] VITALS: BP 166/90; PULSE 88; RESP 15; O2SAT 100
[2023-06-26 06:19] LABS: Reflex Lactic Acid Yes or No Add Lactic
== END 2023-06-26 05:09 | disposition home or self-care (01) ==
PROVIDERS: Emergency Provider Emergency Medicine; PCP Internal Medicine
DX: E11.65 Type 2 diabetes mellitus with hyperglycemia (principal); J02.0 Streptococcal pharyngitis; R82.998 Other abnormal findings in urine; I50.9 Heart failure, unspecified; E11.42 Type 2 diabetes mellitus with diabetic polyneuropathy; E66.01 Morbid (severe) obesity due to excess calories; Z68.43 Body mass index [BMI] 50.0-59.9, adult; G47.33 Obstructive sleep apnea (adult) (pediatric); G25.81 Restless legs syndrome; K58.9 Irritable bowel syndrome, unspecified; F41.9 Anxiety disorder, unspecified; Z96.653 Presence of artificial knee joint, bilateral; Z96.82 Presence of neurostimulator; Z86.718 Personal history of other venous thrombosis and embolism; Z87.11 Personal history of peptic ulcer disease; Z86.16 Personal history of COVID-19; Z85.3 Personal history of malignant neoplasm of breast; Z87.891 Personal history of nicotine dependence; Z90.13 Acquired absence of bilateral breasts and nipples; Z90.49 Acquired absence of other specified parts of digestive tract; Z90.721 Acquired absence of ovaries, unilateral; Z79.01 Long term (current) use of anticoagulants; Z79.4 Long term (current) use of insulin
CPT/HCPCS: 36415; 71045; 80053; 81001; 82010; 82803; 82948; 83605; 83735; 85025; 87077; 87086; 87088; 87186; 96361; 96374; 99284; J1815; J7030

== ENCOUNTER 2023-06-28 10:32 | Emergency (ER) | payer MEDICARE, MEDICAID, SELFPAY ==
--- NOTE | ~2023-06-28 | XR_ITS ---
EXAMINATION: XR chest 2V DATE: 06/28/2023 11:06 INDICATION: Shortness of breath TECHNIQUE: PA and lateral views of the chest are obtained. COMPARISON: 06/26/2023 FINDINGS: The lungs are free of acute opacities. No pleural effusion or pneumothorax. The cardiomedia stinal silhouette is normal. There is severe thoracic spondylosis. Neurostimulator leads project over the midthoracic spine. IMPRESSION: 1. No acute cardiopulmonary abnormality. Reviewed, dictated and finalized at location B. FACTURING INSPECTOR
[2023-06-28 10:45] VITALS: BP 174/89; PULSE 82; RESP 18; TEMP 36.6; O2SAT 99
--- NOTE | 2023-06-28 10:47 | ECG_ITS ---
Measurements Intervals [place] Rate: 81 P: 8 CO: 133 QRS: 3 QRSD: 88 T: 32 QT: 378 QTc: 440 Interpretive Statements SINUS RHYTHM WITH SINUS ARRHYTHMIA NONSPECIFIC T-WAVE ABNORMALITY- ANT/INF LEADS BORDERLINE ECG COMPARED TO ECG 06/22/2023 17:08:17 SINUS ARRHYTHMIA NOW PRESENT Electronically Signed On 06-28-2023 10:54:10 FNP by Jonatan Parra D.O.
[2023-06-28 11:06] LABS: Basophils Absolute Auto 0.1 K/mm3 (0.0-0.1); Basophils Percent Auto 0.5 % (0.2-1.2); Eosinophils Absolute Auto 0.3 K/mm3 (0-0.3); Eosinophils Percent Auto 2.6 % (0-4.4); Hematocrit 41.7 % (37.0-47.0); Hemoglobin 12.9 g/dL (12.0-15.0); Immature Granulocyte Absolute 0.06 K/mm3 (0.00-0.031); Immature Granulocyte Percent A 0.5 % (0-0.5); Lymphocytes Absolute Auto 3.03 K/mm3 (0.9-3.2); Mean Corpuscular HGB Conc 30.9 g/dl (32-36); Mean Corpuscular Hemoglobin 28.4 pg (26-34); Mean Corpuscular Volume 91.6 fl (80-100); Mean Platelet Volume 9.6 fl (7.4-10.4); Monocytes Percent Auto 9.3 % (2.6-8.5); Neutrophils Absolute Auto 6.8 K/mm3 (1.3-6.7); Neutrophils Percent Auto 60.1 % (45.5-73.1); Platelet Count Result 292 k/mm3 (150-375); Red Blood Count 4.55 M/mm3 (4.2-5.4); Red Cell Distribution Width 13.7 % (11.5-14.5); White Blood Count 11.2 K/mm3 (4.5-10.0)
[2023-06-28 11:15] LABS: Alanine Aminotransferase 20 U/L (6-35); Alkaline Phosphatase 88 U/L (38-126); Anion Gap 7 mmol/L (8-16); Aspartate Amino Transferase 20 U/L (14-36); Bilirubin,Total 0.8 mg/dL (0.2-1.3); Blood Urea Nitrogen 15 mg/dL (7-17); Calcium 9.6 mg/dL (8.4-10.2); Carbon Dioxide 26 mmol/L (22-30); Chloride 105 mmol/L (98-107); Estimated CRCL calculation 96 ml/min; Estimated Glomerular Filt Rate > 60; Glucose 228 mg/dL (65-110); Potassium 3.9 mmol/L (3.4-5.0); Sodium 138 mmol/L (137-145)
[2023-06-28 11:56] VITALS: O2SAT 97
[2023-06-28 11:57] VITALS: BP 141/69; PULSE 77; RESP 24; O2SAT 99
--- NOTE | 2023-06-28 13:25 | ED.SOB ---
HPI - SOB/Dyspnea General Chief Complaint: Shortness of Breath/Dyspnea Stated Complaint: sick with strep Time Seen by Provider: 06/28/23 12:03 History of Present Illness HPI Narrative: 68-year-old female presenting with strep throat. Patient is well-known to this department and is seen very frequently for similar complaints. States that she was diagnosed with strep throat about 4 days ago and she was started on azithromycin. States that she has actually tested positive for strep throat multiple times in the last 3 months and she has already had several rounds of amoxicillin. States that she continues to feel unwell and feels that she is short of breath. States that feels hard to take a deep breath. Denies worsening swelling of her tonsils. No voice changes or difficulty swallowing. No chest pain or abdominal pain. She is concerned that she is weaker than normal. Related Data Home Medications Medication Instructions Recorded Confirmed amitriptyline 25 mg tablet 25 mg PO HS 01/06/20 06/25/23 exemestane 25 mg tablet 25 mg PO HS 01/06/20 06/25/23 insulin glargine 100 unit/mL (3 50 unit subcut QAM 01/06/20 06/25/23 mL) subcutaneous pen (Lantus Solostar U-100 Insulin) rivaroxaban 20 mg tablet (Xarelto) 20 mg PO DAILY 01/06/20 06/25/23 ropinirole 5 mg tablet 5 mg PO HS 01/06/20 06/25/23 insulin lispro 100 unit/mL 22 unit subcut TID 03/19/22 06/25/23 subcutaneous pen (Humalog KwikPen (U-100) Insulin) methenamine hippurate 1 gram tablet 1 g PO BID 07/19/22 06/25/23 oxybutynin chloride 15 mg 15 mg PO DAILY 11/06/22 06/25/23 tablet,extended release 24 hr cyclobenzaprine 5 mg tablet 5 mg PO DIRECTED 06/25/23 06/25/23 gabapentin 300 mg capsule 300 mg PO DIRECTED 06/25/23 06/25/23 tirzepatide 2.5 mg/0.5 mL 2.5 mg subcut WEEKLY 06/25/23 06/25/23 subcutaneous pen injector (Scott) Allergies Allergy/AdvReac Type Severity Reaction Status Date / Time ceftriaxone Allergy Severe SOB Verified 06/26/23 03:17 cephalexin Allergy Severe Difficulty Verified 06/26/23 03:17 Breathing Cephalosporins Allergy Severe Difficulty Verified 06/26/23 03:17 Breathing lorazepam Allergy Severe Swelling Verified 06/26/23 03:17 metoclopramide Allergy Intermediate Other Verified 06/26/23 03:17 chlorhexidine Allergy Mild BLISTERING Verified 06/26/23 03:17 levofloxacin Allergy Mild Hives / Verified 06/26/23 03:17 Red Face ketorolac Allergy Itching Verified 06/26/23 03:17 latex Allergy Rash Verified 06/26/23 03:17 nitrofurantoin Allergy Itching Verified 06/26/23 03:17 sulfamethoxazole Allergy Itching Verified 06/26/23 03:17 [From Sulfamethoxazole-Trimethoprim] trazodone Allergy Swelling Verified 06/26/23 03:17 of Lip/Tongue/Throat trimethoprim Allergy Itching Verified 06/26/23 03:17 [From Sulfamethoxazole-Trimethoprim] oxycodone AdvReac Mild Vomiting Verified 06/26/23 03:17 amlodipine AdvReac Swelling Verified 06/26/23 03:17 lisinopril AdvReac Swelling Verified 06/26/23 03:17 meropenem AdvReac Rash Verified 06/26/23 03:17 pregabalin AdvReac Swelling Verified 06/26/23 03:17 reslizumab AdvReac Unknown Verified 06/26/23 03:17 Review of Systems Review of Systems: All systems reviewed & are unremarkable except as noted in HPI and below PMFSH Past Medical History Medical History Anxiety Breast cancer Chronic anticoagulation Chronic back pain Collagenous colitis Congestive heart failure COVID-19 Deep venous thrombosis Depression Irritable bowel syndrome Kidney stone Morbid obesity Multiple thyroid nodules Obstructive sleep apnea on CPAP Overactive bladder Peripheral neuropathy Pulmonary embolism positive for coagulation workup Restless leg syndrome Type 2 diabetes mellitus Surgical History Surgical History History of bilateral mastectomy History of cardi
[2023-06-28] MEDS: ALBUTEROL SULFATE (*SP) AEROSOL 1 PUFF 2 PUFF INHALATION (13:50)
[2023-06-28] MEDS: SODIUM CHLORIDE 0.9% IV 1,000 ML 999 ML IV CONT (13:54)
[2023-06-28] MEDS: KETOROLAC 30 MG/ML VIAL (*BKC) IV PUSH (13:55)
[2023-06-28] MEDS: diphenhydrAMINE HCl CAP 25 MG CAPSULE 50 MG PO (15:30)
[2023-06-28 17:04] VITALS: BP 124/70; PULSE 85; RESP 18; O2SAT 99
== END 2023-06-28 17:05 | disposition home or self-care (01) ==
PROVIDERS: Student in an Organized Health Care Education/Training Program; Emergency Provider Emergency Medicine; PCP Internal Medicine
DX: J02.0 Streptococcal pharyngitis (principal); R06.02 Shortness of breath; F41.9 Anxiety disorder, unspecified; I50.9 Heart failure, unspecified; F32.A Depression, unspecified; E11.9 Type 2 diabetes mellitus without complications; Z86.718 Personal history of other venous thrombosis and embolism; Z79.4 Long term (current) use of insulin
CPT/HCPCS: 36415; 71046; 80053; 85025; 93005; 94664; 96361; 96374; 99284; A9270; J1885; J7030

== ENCOUNTER 2023-07-02 18:46 | Emergency (ER) | payer MEDICARE, MEDICAID, SELFPAY ==
[2023-07-02 18:48] VITALS: BP 150/89; PULSE 82; RESP 16; TEMP 36.7; O2SAT 100
--- NOTE | 2023-07-02 20:16 | ED.ALLEREA ---
HPI - Allergic Reaction General Chief complaint: Allergic Reaction Stated complaint: allergic reaction Time Seen by Provider: 07/02/23 20:06 Source: patient Mode of arrival: ambulatory Limitations: no limitations History of Present Illness HPI narrative: This is a 68 year old female that presents to the ER for possible allergic reaction. Reports she is currently on Augmentin for strep throat. Reports this is day three. Reports she has been experiencing some itching. Reports today after her dose about an hour prior to arrival she started to have some shortness of breath. Reports allergies to several antibiotics. Denies any swelling or rash. Related Data Home Medications Medication Instructions Recorded Confirmed amitriptyline 25 mg tablet 25 mg PO HS 01/06/20 06/25/23 exemestane 25 mg tablet 25 mg PO HS 01/06/20 06/25/23 insulin glargine 100 unit/mL (3 50 unit subcut QAM 01/06/20 06/25/23 mL) subcutaneous pen (Lantus Solostar U-100 Insulin) rivaroxaban 20 mg tablet (Xarelto) 20 mg PO DAILY 01/06/20 06/25/23 ropinirole 5 mg tablet 5 mg PO HS 01/06/20 06/25/23 insulin lispro 100 unit/mL 22 unit subcut TID 03/19/22 06/25/23 subcutaneous pen (Humalog KwikPen (U-100) Insulin) methenamine hippurate 1 gram tablet 1 g PO BID 07/19/22 06/25/23 oxybutynin chloride 15 mg 15 mg PO DAILY 11/06/22 06/25/23 tablet,extended release 24 hr cyclobenzaprine 5 mg tablet 5 mg PO DIRECTED 06/25/23 06/25/23 gabapentin 300 mg capsule 300 mg PO DIRECTED 06/25/23 06/25/23 tirzepatide 2.5 mg/0.5 mL 2.5 mg subcut WEEKLY 06/25/23 06/25/23 subcutaneous pen injector (Scott) Allergies Allergy/AdvReac Type Severity Reaction Status Date / Time ceftriaxone Allergy Severe SOB Verified 06/26/23 03:17 cephalexin Allergy Severe Difficulty Verified 06/26/23 03:17 Breathing Cephalosporins Allergy Severe Difficulty Verified 06/26/23 03:17 Breathing lorazepam Allergy Severe Swelling Verified 06/26/23 03:17 metoclopramide Allergy Intermediate Other Verified 06/26/23 03:17 chlorhexidine Allergy Mild BLISTERING Verified 06/26/23 03:17 levofloxacin Allergy Mild Hives / Verified 06/26/23 03:17 Red Face ketorolac Allergy Itching Verified 06/26/23 03:17 latex Allergy Rash Verified 06/26/23 03:17 nitrofurantoin Allergy Itching Verified 06/26/23 03:17 sulfamethoxazole Allergy Itching Verified 06/26/23 03:17 [From Sulfamethoxazole-Trimethoprim] trazodone Allergy Swelling Verified 06/26/23 03:17 of Lip/Tongue/Throat trimethoprim Allergy Itching Verified 06/26/23 03:17 [From Sulfamethoxazole-Trimethoprim] oxycodone AdvReac Mild Vomiting Verified 06/26/23 03:17 amlodipine AdvReac Swelling Verified 06/26/23 03:17 lisinopril AdvReac Swelling Verified 06/26/23 03:17 meropenem AdvReac Rash Verified 06/26/23 03:17 pregabalin AdvReac Swelling Verified 06/26/23 03:17 reslizumab AdvReac Unknown Verified 06/26/23 03:17 Review of Systems Review of Systems: CONSTITUTIONAL: Denies fever CARDIOVASCULAR: Denies chest pain RESPIRATORY: Reports dyspnea. SKIN: Reports itching. Denies rash All systems reviewed & are unremarkable except as noted in HPI and below PMFSH Past Medical History Medical History Anxiety Breast cancer Chronic anticoagulation Chronic back pain Collagenous colitis Congestive heart failure COVID-19 Deep venous thrombosis Depression Irritable bowel syndrome Kidney stone Morbid obesity Multiple thyroid nodules Obstructive sleep apnea on CPAP Overactive bladder Peripheral neuropathy Pulmonary embolism positive for coagulation workup Restless leg syndrome Type 2 diabetes mellitus Surgical History Surgical History History of bilateral mastectomy History of cardiac catheterization Reportedly negative for coronary artery disease. History of cholecystectomy
[2023-07-02] MEDS: dexAMETHasone SOD PHOS INJ 10 MG/ML 1 ML VIAL IM (20:50)
[2023-07-02] MEDS: FAMOTIDINE 20 MG TABLET PO (20:50)
[2023-07-02] MEDS: diphenhydrAMINE HCl CAP 25 MG CAPSULE PO (20:54)
[2023-07-02 22:04] VITALS: BP 143/75; PULSE 84; RESP 15; TEMP 36.6; O2SAT 99
== END 2023-07-02 22:05 | disposition home or self-care (01) ==
PROVIDERS: Emergency Provider Physician Assistant; PCP Internal Medicine
DX: R06.02 Shortness of breath (principal); L29.9 Pruritus, unspecified; T36.8X5A Adverse effect of other systemic antibiotics, initial encounter; I50.9 Heart failure, unspecified; E11.42 Type 2 diabetes mellitus with diabetic polyneuropathy; E66.01 Morbid (severe) obesity due to excess calories; Z68.43 Body mass index [BMI] 50.0-59.9, adult; G47.33 Obstructive sleep apnea (adult) (pediatric); G25.81 Restless legs syndrome; K58.9 Irritable bowel syndrome, unspecified; F41.9 Anxiety disorder, unspecified; Z96.653 Presence of artificial knee joint, bilateral; Z96.82 Presence of neurostimulator; Z86.718 Personal history of other venous thrombosis and embolism; Z87.11 Personal history of peptic ulcer disease; Z86.16 Personal history of COVID-19; Z85.3 Personal history of malignant neoplasm of breast; Z87.891 Personal history of nicotine dependence; Z90.13 Acquired absence of bilateral breasts and nipples; Z90.49 Acquired absence of other specified parts of digestive tract; Z90.721 Acquired absence of ovaries, unilateral; Z79.01 Long term (current) use of anticoagulants; Z79.4 Long term (current) use of insulin
CPT/HCPCS: 96372; 99283; A9270; J1100

== ENCOUNTER 2023-07-26 16:04 | Emergency (ER) | payer MEDICARE, MEDICAID, SELFPAY ==
--- NOTE | ~2023-07-26 | CT_ITS ---
EXAMINATION: CT thoracic lumbar wo con DATE: 07/26/2023 17:27 INDICATION: Back pain TECHNIQUE: Computed tomography (CT) of the thoracic and lumbar spine was performed without intravenou s contrast. Automated exposure control and iterative reconstruction technique were employed. The dose -length product was 2062.51 mGy-cm. COMPARISON: CT chest dated 06/22/[address] abdomen and pelvis dated 03/03/2023 FINDINGS: Thoracic spine: There bilateral hypoplastic riblets at T12 and a transitional sacralized L5 segment. 12 degree thorac ic dextroscoliosis. Sagittal alignment is normal. T8 laminectomy and partial T7 laminectomy. Spinal s timulator extends into the laminectomy bed with leads positioned at the posterior margin of the centr al canal at T7-T8. Unchanged chronic mild anterior wedging at T6 and T8. No acute fracture. Severe di sc height loss with left-sided predominant degenerative endplate changes at T5-T6, T6-T7 and T9-T10. Moderate disc height loss at T2-T3 through T4-T5, at T7-T8, T8-T9 and T10-T11. Mild disc height loss at T1-T2 in the visualized lower cervical spine. There are small posterior endplate osteophytes at T6 -T7, T9-T10 and T10-T11 resulting in only negligible central canal stenosis. There is severe facet os teoarthritis on the right that T2-T3, T3-T4 and T4-T5 and on the left at T1-T2 through T3-T4. There i s mild to moderate facet osteoarthritis scattered throughout the remainder of the thoracic spine. The re is multilevel upper thoracic predominant bilateral mild neural foraminal stenosis. Visualized port ion of the lungs are clear.. Aortic valve and mitral annular calcific lesion. No evident pericardial or pleural effusion. Lumbar spine: Alignment is normal. Vertebral body heights are normal. No acute fracture. Mild disc height loss at L 1-L2 through L4-L5. There are disc bulges at each of these levels. This contributes to moderate centr al canal stenosis at L2-L3, mild to moderate central canal stenosis at L3-L4 and mild central canal s tenosis at L1-L2 and L4-L5. Severe bilateral lumbar facet osteoarthritis with solid posterior spinal fusion bilaterally at L4-L5. There is moderate neural foraminal stenosis on the right at L3-L4, and t he left at L4-L5 with mild bilateral neural foraminal stenosis at the remaining neural foramina from L1-L2 through L4-L5. Advanced bilateral sacroiliac osteoarthritis. There is a large paravertebral sof t tissues are unremarkable. IMPRESSION: 1. Mild midthoracic dextroscoliosis with severe spondylosis and placement placement of a spinal stimu lator lead posteriorly at the central canal at T7 and T8 where there are change of prior laminectomie s. 2. Mild lumbar spondylosis. 3. Advanced bilateral sacroiliac osteoarthritis. Reviewed, dictated and finalized at location A. IMPRESSION: 1. Mild midthoracic dextroscoliosis with severe spondylosis and placement place ment of a spinal stimulator lead posteriorly at the central canal at T7 and T8 where there are change of prior laminectomies. 2. Mild lumbar spondylosis. 3. Advanced bilateral sacroiliac osteoarthritis.
[2023-07-26 16:06] VITALS: BP 165/82; PULSE 77; RESP 20; TEMP 36.4; O2SAT 100
[2023-07-26] MEDS: HYDROmorphone HCL INJ (*CRX) 1 MG/ML SYR 0.5 MG IV PUSH ×2 (17:11→19:09)
[2023-07-26] MEDS: CYCLOBENZAPRINE HCL 10 MG TABLET PO (17:11)
[2023-07-26 17:20] LABS: Basophils Percent Auto 0.4 % (0.2-1.2); Eosinophils Absolute Auto 0.3 K/mm3 (0-0.3); Eosinophils Percent Auto 3.7 % (0-4.4); Hematocrit 40.3 % (37.0-47.0); Hemoglobin 12.4 g/dL (12.0-15.0); Immature Granulocyte Absolute 0.03 K/mm3 (0.00-0.031); Immature Granulocyte Percent A 0.4 % (0-0.5); Lymphocytes Absolute Auto 2.44 K/mm3 (0.9-3.2); Mean Corpuscular HGB Conc 30.8 g/dl (32-36); Mean Corpuscular Hemoglobin 28.5 pg (26-34); Mean Corpuscular Volume 92.6 fl (80-100); Mean Platelet Volume 9.8 fl (7.4-10.4); Monocytes Absolute Auto 0.6 K/mm3 (0.1-0.6); Monocytes Percent Auto 6.7 % (2.6-8.5); Neutrophils Absolute Auto 5.1 K/mm3 (1.3-6.7); Neutrophils Percent Auto 59.8 % (45.5-73.1); Platelet Count Result 302 k/mm3 (150-375); Red Blood Count 4.35 M/mm3 (4.2-5.4); Red Cell Distribution Width 13.8 % (11.5-14.5); White Blood Count 8.4 K/mm3 (4.5-10.0)
[2023-07-26 17:30] LABS: Alanine Aminotransferase 24 U/L (6-35); Albumin Level 4.1 g/dL (3.5-5.1); Alkaline Phosphatase 79 U/L (38-126); Anion Gap 3 mmol/L (4-12); Aspartate Amino Transferase 29 U/L (14-36); Bilirubin,Total 0.7 mg/dL (0.2-1.3); Blood Urea Nitrogen 17 mg/dL (7-17); Calcium 9.4 mg/dL (8.4-10.2); Carbon Dioxide 30 mmol/L (22-30); Chloride 104 mmol/L (98-107); Estimated CRCL calculation 95 ml/min; Estimated Glomerular Filt Rate > 60; Glucose 217 mg/dL (65-110); Potassium 4.1 mmol/L (3.4-5.0); Sodium 137 mmol/L (137-145)
[2023-07-26 18:02] LABS: Appearance Urine Clear (Clear); Bilirubin Urine Negative (Negative); Blood Urine Negative (Negative); Color Urine Yellow (Yellow); Glucose Urine UA 1+ mg/dL (Negative); Ketones Urine Negative (Negative); Leukocyte Esterase Ur Negative LEU/UL (Negative); Nitrate Urine Negative (Negative); Protein Urine Negative (Negative); Specific Grav Ur 1.022 (1.001-1.035); Urobilinogen Urine 0.2 mg/dL (<2.0); pH Urine 5.5 (5.0-9.0)
[2023-07-26 18:03] LABS: Add Urine Microscopic? NO
--- NOTE | 2023-07-26 18:37 | ED.GENADULT ---
HPI - General Adult General Chief complaint: Back Pain/Injury Stated complaint: back pain Time Seen by Provider: 07/26/23 16:18 History of Present Illness HPI narrative: Karly Marques is a 68 y/o female with PMhx of chronic low back pain with previous surgeries and has a neuro pain stimulator placed but it is shut off because it wasn't working right. SHe takes Onset at home for pain but it hasn't been working since she fell 3 days ago. She states that she tripped on a rug and almost went down and caught herself on a chair. She states that she had some back pain after that but when she woke up Monday the pain was extreme and has continued/ She states she has barely been able to get out of bed or to ambulate She reports of having urinary incontinence that started 2 days ago. No loss of bowel and she states that she has pain across her lower back that moves down her left hip down her left leg and pain down to her right buttock. She follows with Neurosurgery at [facility] Dr. Gregg Related Data Home Medications Medication Instructions Recorded Confirmed amitriptyline 25 mg tablet 25 mg PO HS 01/06/20 06/25/23 exemestane 25 mg tablet 25 mg PO HS 01/06/20 06/25/23 insulin glargine 100 unit/mL (3 50 unit subcut QAM 01/06/20 06/25/23 mL) subcutaneous pen (Lantus Solostar U-100 Insulin) rivaroxaban 20 mg tablet (Xarelto) 20 mg PO DAILY 01/06/20 06/25/23 ropinirole 5 mg tablet 5 mg PO HS 01/06/20 06/25/23 insulin lispro 100 unit/mL 22 unit subcut TID 03/19/22 06/25/23 subcutaneous pen (Humalog KwikPen (U-100) Insulin) methenamine hippurate 1 gram tablet 1 g PO BID 07/19/22 06/25/23 oxybutynin chloride 15 mg 15 mg PO DAILY 11/06/22 06/25/23 tablet,extended release 24 hr cyclobenzaprine 5 mg tablet 5 mg PO DIRECTED 06/25/23 06/25/23 gabapentin 300 mg capsule 300 mg PO DIRECTED 06/25/23 06/25/23 tirzepatide 2.5 mg/0.5 mL 2.5 mg subcut WEEKLY 06/25/23 06/25/23 subcutaneous pen injector (Scott) Allergies Allergy/AdvReac Type Severity Reaction Status Date / Time ceftriaxone Allergy Severe SOB Verified 06/26/23 03:17 cephalexin Allergy Severe Difficulty Verified 06/26/23 03:17 Breathing Cephalosporins Allergy Severe Difficulty Verified 06/26/23 03:17 Breathing lorazepam Allergy Severe Swelling Verified 06/26/23 03:17 metoclopramide Allergy Intermediate Other Verified 06/26/23 03:17 chlorhexidine Allergy Mild BLISTERING Verified 06/26/23 03:17 levofloxacin Allergy Mild Hives / Verified 06/26/23 03:17 Red Face ketorolac Allergy Itching Verified 06/26/23 03:17 latex Allergy Rash Verified 06/26/23 03:17 nitrofurantoin Allergy Itching Verified 06/26/23 03:17 sulfamethoxazole Allergy Itching Verified 06/26/23 03:17 [From Sulfamethoxazole-Trimethoprim] trazodone Allergy Swelling Verified 06/26/23 03:17 of Lip/Tongue/Throat trimethoprim Allergy Itching Verified 06/26/23 03:17 [From Sulfamethoxazole-Trimethoprim] oxycodone AdvReac Mild Vomiting Verified 06/26/23 03:17 amlodipine AdvReac Swelling Verified 06/26/23 03:17 lisinopril AdvReac Swelling Verified 06/26/23 03:17 meropenem AdvReac Rash Verified 06/26/23 03:17 pregabalin AdvReac Swelling Verified 06/26/23 03:17 reslizumab AdvReac Unknown Verified 06/26/23 03:17 Review of Systems Review of Systems: All systems reviewed & are unremarkable except as noted in HPI and below PMFSH Past Medical History Medical History Anxiety Breast cancer Chronic anticoagulation Chronic back pain Collagenous colitis Congestive heart failure COVID-19 Deep venous thrombosis Depression Irritable bowel syndrome Kidney stone Morbid obesity Multiple thyroid nodules Obstructive sleep apnea on CPAP Overactive bladder Peripheral neuropathy Pulmonary embolism positive for coagulation workup Restless leg syndrome Type 2 diabetes mellitus Surgical History Surgical History (R
[2023-07-26 19:11] VITALS: PULSE 83; RESP 18; O2SAT 98
--- NOTE | 2023-07-26 19:41 | PC.NURSE ---
Report given to NURIS Marcus at [facility].
[2023-07-26 19:57] VITALS: BP 157/91; PULSE 75; RESP 17; TEMP 36.6; O2SAT 100
== END 2023-07-26 20:11 | disposition short-term general hospital (02) ==
PROVIDERS: Emergency Provider Nurse Practitioner Family; PCP Internal Medicine
DX: M54.42 Lumbago with sciatica, left side (principal); N39.498 Other specified urinary incontinence; W22.8XXA Striking against or struck by other objects, initial encounter; Z85.3 Personal history of malignant neoplasm of breast; Z79.01 Long term (current) use of anticoagulants; G89.29 Other chronic pain; Z86.718 Personal history of other venous thrombosis and embolism; E66.01 Morbid (severe) obesity due to excess calories; Z68.43 Body mass index [BMI] 50.0-59.9, adult; G47.33 Obstructive sleep apnea (adult) (pediatric); Z86.711 Personal history of pulmonary embolism; E11.9 Type 2 diabetes mellitus without complications; Z87.891 Personal history of nicotine dependence
CPT/HCPCS: 36415; 72128; 72131; 80053; 81003; 85025; 96374; 96376; 99285; A9270; J1170

== ENCOUNTER 2023-08-03 17:07 | Emergency (ER) | payer MEDICARE, MEDICAID, SELFPAY ==
--- NOTE | ~2023-08-03 | CT_ITS ---
EXAMINATION: CT abdomen pelvis wo con DATE: 08/03/2023 21:04 INDICATION: Evaluate for kidney stone. TECHNIQUE: Computed tomography (CT) of the abdomen and pelvis was performed without intravenous contr ast. The dose-length product was 1426.10 mGy-cm. Automated exposure control and iterative reconstruct ion technique were employed. COMPARISON: CT dated 03/03/2023. FINDINGS: Lung bases unremarkable. Heart size normal. No significant pleural or pericardial effusion. Status post cholecystectomy. No significant vascular abnormality. There are changes of previous vent ral abdominal wall hernia repair. Nonobstructive bowel gas pattern. There are subtle low density lesi ons in the right kidney, most likely benign cysts. No hydronephrosis. No renal or ureteral stones. Th ere are a stimulator device reidentified. No free air or free fluid. No lymphadenopathy. Stable bilat eral sacroiliitis. There is osteitis pubis. IMPRESSION: 1. No acute abdominal abnormality. Reviewed, dictated and finalized at location A.
[2023-08-03 17:23] VITALS: BP 150/83; PULSE 89; RESP 18; TEMP 36.6; O2SAT 100
--- NOTE | 2023-08-03 17:29 | ED.FEMALEGU ---
HPI - Female Genitourinary General Chief complaint: Urogenital-Female <Melvin Parsons APRN - Last Filed: 08/03/23 18:20> Stated complaint: uti <Melvin Parsons APRN - Last Filed: 08/03/23 18:20> Time Seen by Provider: 08/03/23 17:28 <Melvin Parsons APRN - Last Filed: 08/03/23 18:20> Focused HPI: GENERAL: morbidly obese, and in no acute distress. HEAD: Normocephalic, atraumatic. CHEST: Clear to auscultation. No respiratory distress. HEART: Regular rate and rhythm. NEURO: Alert and oriented x3. ABD: Suprapubic tenderness Patient screened in triage and initial orders placed. Additional care and disposition to be based upon diagnostic testing and treatment. 67-year-old female presented to the emergency room for evaluation of dysuria, urinary urgency and frequency for 1 week. Patient was recently seen here for low back pain, and transferred to [facility] due to low back pain secondary to her pain stimulator. Patient states that she is scheduled to have a pain stimulator removed. Patient was diagnosed and treated for UTI while hospitalized with fosfomycin. Patient states her symptoms never resolved and was discharged home on Augmentin. Patient has been on Augmentin for 4 days and endorses no resolution of her symptoms. Patient denies fever. Patient states that she has multiple allergies to antibiotics. <Melivn Parsons APRN - Last Filed: 08/03/23 18:20> History of Present Illness HPI Narrative: Agree with above HPI. Also received fosfomycin. No having suprapubic cramping. <Gil Mi MD - Last Filed: 08/03/23 21:19> Related Data Home medications: Home Medications Medication Instructions Recorded Confirmed amitriptyline 25 mg tablet 25 mg PO HS 01/06/20 06/25/23 exemestane 25 mg tablet 25 mg PO HS 01/06/20 06/25/23 insulin glargine 100 unit/mL (3 50 unit subcut QAM 01/06/20 06/25/23 mL) subcutaneous pen (Lantus Solostar U-100 Insulin) rivaroxaban 20 mg tablet (Xarelto) 20 mg PO DAILY 01/06/20 06/25/23 ropinirole 5 mg tablet 5 mg PO HS 01/06/20 06/25/23 insulin lispro 100 unit/mL 22 unit subcut TID 03/19/22 06/25/23 subcutaneous pen (Humalog KwikPen (U-100) Insulin) methenamine hippurate 1 gram tablet 1 g PO BID 07/19/22 06/25/23 oxybutynin chloride 15 mg 15 mg PO DAILY 11/06/22 06/25/23 tablet,extended release 24 hr cyclobenzaprine 5 mg tablet 5 mg PO DIRECTED 06/25/23 06/25/23 gabapentin 300 mg capsule 300 mg PO DIRECTED 06/25/23 06/25/23 tirzepatide 2.5 mg/0.5 mL 2.5 mg subcut WEEKLY 06/25/23 06/25/23 subcutaneous pen injector (Mounjaro) <Melvin Parsons, WRAP CHECKER - Last Filed: 08/03/23 18:20> Allergies/Adverse reactions: Allergies Allergy/AdvReac Type Severity Reaction Status Date / Time ceftriaxone Allergy Severe SOB Verified 06/26/23 03:17 cephalexin Allergy Severe Difficulty Verified 06/26/23 03:17 Breathing Cephalosporins Allergy Severe Difficulty Verified 06/26/23 03:17 Breathing lorazepam Allergy Severe Swelling Verified 06/26/23 03:17 metoclopramide Allergy Intermediate Other Verified 06/26/23 03:17 chlorhexidine Allergy Mild BLISTERING Verified 06/26/23 03:17 levofloxacin Allergy Mild Hives / Verified 06/26/23 03:17 Red Face ketorolac Allergy Itching Verified 06/26/23 03:17 latex Allergy Rash Verified 06/26/23 03:17 nitrofurantoin Allergy Itching Verified 06/26/23 03:17 sulfamethoxazole Allergy Itching Verified 06/26/23 03:17 [From Sulfamethoxazole-Trimethoprim] trazodone Allergy Swelling Verified 06/26/23 03:17 of Lip/Tongue/Throat trimethoprim Allergy Itching Verified 06/26/23 03:17 [From Sulfamethoxazole-Trimethoprim] oxycodone AdvReac Mild Vomiting Verified 06/26/23 03:17 amlodipine AdvReac Swelling Verified 06/26/23 03:17 lisinopril AdvReac Swelling Verified 06/26/23 03:17 meropenem AdvReac Rash Verified 06/26/23 03:17 pregabalin AdvReac Swelling Verified 06/26/23 03:17 reslizuma
[2023-08-03 19:32] VITALS: BP 144/89; PULSE 89; RESP 21; TEMP 36.5; O2SAT 99
[2023-08-03 19:47] LABS: Appearance Urine Clear (Clear); Bacteria Urine None Seen /hpf; Bilirubin Urine Negative (Negative); Blood Urine 1+ (Negative); Color Urine Yellow (Yellow); Glucose Urine UA Negative (Negative); Ketones Urine Negative (Negative); Leukocyte Esterase Ur Negative LEU/UL (Negative); Nitrate Urine Negative (Negative); Non Pathogenic Casts 0-2; Protein Urine Trace mg/dL (Negative); Specific Grav Ur 1.024 (1.001-1.035); Squamous Epithelial Cell Urine None Seen /hpf (Few); Urobilinogen Urine 0.2 mg/dL (<2.0); WBC Urine 0-5 /hpf (0-3); pH Urine 5.5 (5.0-9.0)
[2023-08-03 19:58] LABS: Add Urine Microscopic? YES
[2023-08-03 20:04] LABS: Basophils Absolute Auto 0.1 K/mm3 (0.0-0.1); Basophils Percent Auto 0.4 % (0.2-1.2); Eosinophils Absolute Auto 0.3 K/mm3 (0-0.3); Eosinophils Percent Auto 2.2 % (0-4.4); Hematocrit 46.7 % (37.0-47.0); Hemoglobin 14.5 g/dL (12.0-15.0); Immature Granulocyte Absolute 0.06 K/mm3 (0.00-0.031); Immature Granulocyte Percent A 0.4 % (0-0.5); Lymphocytes Absolute Auto 3.62 K/mm3 (0.9-3.2); Lymphocytes Percent Auto 26.9 % (18.3-44.2); Mean Corpuscular Hemoglobin 28.5 pg (26-34); Mean Corpuscular Volume 91.7 fl (80-100); Mean Platelet Volume 9.6 fl (7.4-10.4); Monocytes Percent Auto 7.4 % (2.6-8.5); Neutrophils Absolute Auto 8.4 K/mm3 (1.3-6.7); Neutrophils Percent Auto 62.7 % (45.5-73.1); Platelet Count Result 311 k/mm3 (150-375); Red Blood Count 5.09 M/mm3 (4.2-5.4); Red Cell Distribution Width 13.6 % (11.5-14.5); White Blood Count 13.4 K/mm3 (4.5-10.0)
[2023-08-03 20:11] LABS: Alanine Aminotransferase 18 U/L (6-35); Albumin Level 4.4 g/dL (3.5-5.1); Alkaline Phosphatase 92 U/L (38-126); Anion Gap 4 mmol/L (4-12); Aspartate Amino Transferase 21 U/L (14-36); Bilirubin,Total 1.2 mg/dL (0.2-1.3); Blood Urea Nitrogen 18 mg/dL (7-17); Calcium 10.1 mg/dL (8.4-10.2); Carbon Dioxide 30 mmol/L (22-30); Chloride 102 mmol/L (98-107); Estimated CRCL calculation 120 ml/min; Estimated Glomerular Filt Rate > 60; Glucose 207 mg/dL (65-110); Sodium 136 mmol/L (137-145)
[2023-08-03 21:48] VITALS: BP 133/84; PULSE 69; RESP 18; TEMP 37.1; O2SAT 99
== END 2023-08-03 21:49 | disposition home or self-care (01) ==
PROVIDERS: Nurse Practitioner Family; Emergency Provider Emergency Medicine; PCP Internal Medicine
DX: R10.9 Unspecified abdominal pain (principal); I50.9 Heart failure, unspecified; E11.42 Type 2 diabetes mellitus with diabetic polyneuropathy; E66.01 Morbid (severe) obesity due to excess calories; Z68.43 Body mass index [BMI] 50.0-59.9, adult; G47.33 Obstructive sleep apnea (adult) (pediatric); G25.81 Restless legs syndrome; K58.9 Irritable bowel syndrome, unspecified; F41.9 Anxiety disorder, unspecified; Z96.653 Presence of artificial knee joint, bilateral; Z96.82 Presence of neurostimulator; Z86.718 Personal history of other venous thrombosis and embolism; Z87.11 Personal history of peptic ulcer disease; Z86.16 Personal history of COVID-19; Z85.3 Personal history of malignant neoplasm of breast; Z87.442 Personal history of urinary calculi; Z87.891 Personal history of nicotine dependence; Z90.13 Acquired absence of bilateral breasts and nipples; Z90.49 Acquired absence of other specified parts of digestive tract; Z90.721 Acquired absence of ovaries, unilateral; Z79.01 Long term (current) use of anticoagulants; Z79.4 Long term (current) use of insulin
CPT/HCPCS: 36415; 74176; 80053; 81001; 85025; 99284

== ENCOUNTER 2023-09-11 00:31 | Emergency (ER) | payer MEDICARE, MEDICAID, SELFPAY ==
--- NOTE | ~2023-09-11 | CT_ITS ---
CT of the Abdomen and Pelvis: Indication: Abdominal pain Technique: 2.5 mm axial scans were obtained through the abdomen and pelvis following intravenous adm inistration of 100 cc of Omnipaque 350. Dose reduction technique was used on this scan by utilizing a utomated exposure control and iterative reconstruction technique. The dose-length product (DLP) was 1 524.18 mGy-cm. COMPARISON: 08/03/2023 Findings: Scans through the lung bases demonstrates stable subcentimeter pulmonary nodules the left lung base medially. The liver, spleen, pancreas, adrenals and left kidney are within normal limits. Cholecystectomy clips are present. Stable probable right renal cyst. No evidence of aortic aneurysm. No lymphadenopathy. No bowel obstruction or bowel wall thickening. There is no evidence to suggest acute appendicitis. Th ere is evidence of prior herniorrhaphy. Images through the pelvis were performed. Urinary bladder unremarkable. No pelvic mass seen. No ascit es. Stable neurostimulator device. Impression: No acute abnormality. Stable chronic findings, as above. Reviewed, dictated and finalized at [facility]. Impression: No acute abnormality. Stable chronic findings, as above.
[2023-09-11 00:35] VITALS: BP 156/76; PULSE 94; RESP 20; TEMP 36.4; O2SAT 99
[2023-09-11 01:33] LABS: Basophils Absolute Auto 0.1 K/mm3 (0.0-0.1); Basophils Percent Auto 0.4 % (0.2-1.2); Eosinophils Absolute Auto 0.3 K/mm3 (0-0.3); Eosinophils Percent Auto 2.4 % (0-4.4); Hemoglobin 12.9 g/dL (12.0-15.0); Immature Granulocyte Absolute 0.04 K/mm3 (0.00-0.031); Immature Granulocyte Percent A 0.3 % (0-0.5); Lymphocytes Absolute Auto 2.92 K/mm3 (0.9-3.2); Lymphocytes Percent Auto 23.2 % (18.3-44.2); Mean Corpuscular HGB Conc 31.5 g/dl (32-36); Mean Corpuscular Hemoglobin 28.4 pg (26-34); Mean Corpuscular Volume 90.1 fl (80-100); Mean Platelet Volume 9.7 fl (7.4-10.4); Monocytes Percent Auto 7.6 % (2.6-8.5); Neutrophils Absolute Auto 8.3 K/mm3 (1.3-6.7); Neutrophils Percent Auto 66.1 % (45.5-73.1); Platelet Count Result 262 k/mm3 (150-375); Red Blood Count 4.55 M/mm3 (4.2-5.4); Red Cell Distribution Width 14.1 % (11.5-14.5); White Blood Count 12.6 K/mm3 (4.5-10.0)
[2023-09-11 01:35] LABS: Appearance Urine Clear (Clear); Bilirubin Urine Negative (Negative); Blood Urine Negative (Negative); Color Urine Yellow (Yellow); Glucose Urine UA 1+ mg/dL (Negative); Ketones Urine Negative (Negative); Leukocyte Esterase Ur Negative LEU/UL (Negative); Nitrate Urine Negative (Negative); Protein Urine Negative (Negative); Specific Grav Ur 1.022 (1.001-1.035); Urobilinogen Urine 0.2 mg/dL (<2.0); pH Urine 5.5 (5.0-9.0)
[2023-09-11 01:38] LABS: Add Urine Microscopic? NO
[2023-09-11 01:43] LABS: Alanine Aminotransferase 21 U/L (6-35); Albumin Level 4.3 g/dL (3.5-5.1); Alkaline Phosphatase 77 U/L (38-126); Anion Gap 8 mmol/L (4-12); Aspartate Amino Transferase 24 U/L (14-36); Bilirubin,Total 0.6 mg/dL (0.2-1.3); Blood Urea Nitrogen 17 mg/dL (7-17); Calcium 9.5 mg/dL (8.4-10.2); Carbon Dioxide 27 mmol/L (22-30); Chloride 105 mmol/L (98-107); Estimated CRCL calculation 96 ml/min; Estimated Glomerular Filt Rate > 60; Glucose 166 mg/dL (65-110); Lipase 53 U/L (23-300); Potassium 3.7 mmol/L (3.4-5.0); Sodium 140 mmol/L (137-145)
[2023-09-11 02:23] VITALS: BP 153/94; PULSE 88; RESP 18; O2SAT 98
[2023-09-11] MEDS: ONDANSETRON INJ 4 MG/2 ML VIAL IV PUSH (03:48)
[2023-09-11] MEDS: SODIUM CHLORIDE 0.9% IV 1,000 ML 999 ML IV CONT (03:48)
[2023-09-11] MEDS: MORPHINE SULFATE (*CRX) 4 MG/ML INJ IV PUSH (03:48)
--- NOTE | 2023-09-11 04:37 | ED.ABDPAIN ---
HPI - Abdominal Pain General Chief Complaint: Abdominal Pain Stated Complaint: abdominal pain Time Seen by Provider: 09/11/23 02:23 History of Present Illness HPI narrative: Patient is a 68-year-old female who presents to the emergency department this evening complaining of generalized abdominal pain, nausea, vomiting. Patient admits that she does have a history of gastroparesis and has been struggling with this for the past few months. Patient has changed her diet per her primary care physician who has been following closely secondary to this gastroparesis and states that certain things tend to precipitate her symptoms and believes that she ate something today that precipitated the pain. Patient states that she has vomited 4 times at prior to arrival to the emergency department. She admits that she had regular bowel movements although they will slightly loose. Denies any fevers or chills at home, and currently denying any additional symptoms or concerns at this time. Related Data Home Medications Medication Instructions Recorded Confirmed amitriptyline 25 mg tablet 25 mg PO HS 01/06/20 06/25/23 exemestane 25 mg tablet 25 mg PO HS 01/06/20 06/25/23 insulin glargine 100 unit/mL (3 50 unit subcut QAM 01/06/20 06/25/23 mL) subcutaneous pen (Lantus Solostar U-100 Insulin) rivaroxaban 20 mg tablet (Xarelto) 20 mg PO DAILY 01/06/20 06/25/23 ropinirole 5 mg tablet 5 mg PO HS 01/06/20 06/25/23 insulin lispro 100 unit/mL 22 unit subcut TID 03/19/22 06/25/23 subcutaneous pen (Humalog KwikPen (U-100) Insulin) methenamine hippurate 1 gram tablet 1 g PO BID 07/19/22 06/25/23 oxybutynin chloride 15 mg 15 mg PO DAILY 11/06/22 06/25/23 tablet,extended release 24 hr cyclobenzaprine 5 mg tablet 5 mg PO DIRECTED 06/25/23 06/25/23 gabapentin 300 mg capsule 300 mg PO DIRECTED 06/25/23 06/25/23 tirzepatide 2.5 mg/0.5 mL 2.5 mg subcut WEEKLY 06/25/23 06/25/23 subcutaneous pen injector (Scott) Allergies Allergy/AdvReac Type Severity Reaction Status Date / Time ceftriaxone Allergy Severe SOB Verified 06/26/23 03:17 cephalexin Allergy Severe Difficulty Verified 06/26/23 03:17 Breathing Cephalosporins Allergy Severe Difficulty Verified 06/26/23 03:17 Breathing lorazepam Allergy Severe Swelling Verified 06/26/23 03:17 metoclopramide Allergy Intermediate Other Verified 06/26/23 03:17 chlorhexidine Allergy Mild BLISTERING Verified 06/26/23 03:17 levofloxacin Allergy Mild Hives / Verified 06/26/23 03:17 Red Face ketorolac Allergy Itching Verified 06/26/23 03:17 latex Allergy Rash Verified 06/26/23 03:17 nitrofurantoin Allergy Itching Verified 06/26/23 03:17 sulfamethoxazole Allergy Itching Verified 06/26/23 03:17 [From Sulfamethoxazole-Trimethoprim] trazodone Allergy Swelling Verified 06/26/23 03:17 of Lip/Tongue/Throat trimethoprim Allergy Itching Verified 06/26/23 03:17 [From Sulfamethoxazole-Trimethoprim] oxycodone AdvReac Mild Vomiting Verified 06/26/23 03:17 amlodipine AdvReac Swelling Verified 06/26/23 03:17 lisinopril AdvReac Swelling Verified 06/26/23 03:17 meropenem AdvReac Rash Verified 06/26/23 03:17 pregabalin AdvReac Swelling Verified 06/26/23 03:17 reslizumab AdvReac Unknown Verified 06/26/23 03:17 Review of Systems Review of Systems: All systems are reviewed and are negative unless stated otherwise in the HPI. [facility] Past Medical History Medical History Anxiety Breast cancer Chronic anticoagulation Chronic back pain Collagenous colitis Congestive heart failure COVID-19 Deep venous thrombosis Depression Irritable bowel syndrome Kidney stone Morbid obesity Multiple thyroid nodules Obstructive sleep apnea on CPAP Overactive bladder Peripheral neuropathy Pulmonary embolism positive for coagulation workup Restless leg syndrome Type 2 diabetes mellitus Surgical History Surgical Histo
[2023-09-11 05:56] VITALS: BP 144/87; PULSE 84; RESP 18; O2SAT 98
[2023-09-11] MEDS: MORPHINE SULFATE (*CRX) 2 MG/ML INJ IV PUSH (07:16)
[2023-09-11 07:19] VITALS: BP 125/60; PULSE 79; RESP 19; O2SAT 100
== END 2023-09-11 07:33 | disposition home or self-care (01) ==
PROVIDERS: Physician Assistant; Emergency Provider Emergency Medicine; PCP Internal Medicine
DX: E11.43 Type 2 diabetes mellitus with diabetic autonomic (poly)neuropathy (principal); K31.84 Gastroparesis; I50.9 Heart failure, unspecified; E11.42 Type 2 diabetes mellitus with diabetic polyneuropathy; E66.01 Morbid (severe) obesity due to excess calories; Z68.43 Body mass index [BMI] 50.0-59.9, adult; G47.33 Obstructive sleep apnea (adult) (pediatric); G25.81 Restless legs syndrome; K58.9 Irritable bowel syndrome, unspecified; F41.9 Anxiety disorder, unspecified; Z96.653 Presence of artificial knee joint, bilateral; Z96.82 Presence of neurostimulator; Z86.718 Personal history of other venous thrombosis and embolism; Z86.711 Personal history of pulmonary embolism; Z87.11 Personal history of peptic ulcer disease; Z86.16 Personal history of COVID-19; Z85.3 Personal history of malignant neoplasm of breast; Z87.442 Personal history of urinary calculi; Z87.891 Personal history of nicotine dependence; Z90.13 Acquired absence of bilateral breasts and nipples; Z90.49 Acquired absence of other specified parts of digestive tract; Z90.721 Acquired absence of ovaries, unilateral; Z79.01 Long term (current) use of anticoagulants; Z79.4 Long term (current) use of insulin; Z79.85 Long-term (current) use of injectable non-insulin antidiabetic drugs
CPT/HCPCS: 36415; 74177; 80053; 81003; 83690; 85025; 96361; 96374; 96375; 96376; 99284; J2270; J2405; J7030; Q9967

== ENCOUNTER 2023-09-24 19:02 | Emergency (ER) | payer MEDICARE, MEDICAID, SELFPAY ==
[2023-09-24] VITALS (7 sets, daily range): BP systolic 125–151; BP diastolic 59–78; PULSE 78–86; RESP 14–16; TEMP 36.4; O2SAT 95–99
--- NOTE | ~2023-09-24 | XR_ITS ---
EXAMINATION: XR chest 1V portable DATE: 09/24/2023 20:46 INDICATION: Weakness. TECHNIQUE: A single frontal view of the chest was obtained. COMPARISON: Chest 2 views 06/28/23, CT abdomen and pelvis 09/11/2023 FINDINGS: The patient is rotated to her left. There is mild atelectasis in lingula. No pleural effusi on or pneumothorax. Cardiomegaly is noted. Epidural electrodes are noted. IMPRESSION: 1. Mild atelectasis in lingula. 2. Cardiomegaly. Reviewed, dictated and finalized at location E.
--- NOTE | 2023-09-24 19:56 | ECG_ITS ---
[facility] [address] Test Date: 2023-09-24 Pat Name: Karly Marques Department: Room: Gender: F Data Conversion Developer: : [id number] Requested By: Eddi Bolden Order Number: [id number] Felipe MD: Justen Jean-Baptiste M.D. Measurements Intervals [place] Rate: 83 P: 34 TX: 137 QRS: 25 QRSD: 89 T: 73 QT: 382 QTc: 449 Interpretive Statements SINUS RHYTHM WITH SINUS ARRHYTHMIA NONSPECIFIC T-WAVE ABNORMALITY BORDERLINE ECG No previous ECG available for comparison Electronically Signed On 09-25-2023 07:30:49 CDT by Justen Jean-Baptiste M.D.
--- NOTE | 2023-09-24 20:33 | ED.GENADULT ---
HPI - General Adult General Chief complaint: Weakness Stated complaint: weak, sob Time Seen by Provider: 09/24/23 19:55 History of Present Illness HPI narrative: Patient is a 68-year-old female who presents to the emergency department this evening with multiple complaints. Patient states that for the past 3-5 days she has been feeling jittery, anxious, having some mild shortness of breath, unable to focus, generalized weakness and body aches and difficulty sleeping. Patient also admits that she has been more anxious although she denies any history of anxiety. Patient admits that she stopped taking her gabapentin cold turkey 10 days ago with out discussing this with her family doctor. Patient also states that she has pulmonary nodules that are being monitored and had an ultrasound 2 weeks ago and is currently pending a biopsy of 1 of her pulmonary nodules. She does follow-up with an stitcher set up operator automatic regularly. She denies ever been diagnosed with thyroid disease and has never been placed on thyroid hormone. She admits to feeling nauseous but denies any vomiting episodes. Patient denies any sick contacts at home or exposure to any COVID/influenza as far she is aware. Currently denies any chest pain or difficulty breathing, denies any abdominal pain, any urinary symptoms including dysuria or hematuria. No additional symptoms or concerns at this time. Related Data Home Medications Medication Instructions Recorded Confirmed amitriptyline 25 mg tablet 25 mg PO HS 01/06/20 06/25/23 exemestane 25 mg tablet 25 mg PO HS 01/06/20 06/25/23 insulin glargine 100 unit/mL (3 50 unit subcut QAM 01/06/20 06/25/23 mL) subcutaneous pen (Lantus Solostar U-100 Insulin) rivaroxaban 20 mg tablet (Xarelto) 20 mg PO DAILY 01/06/20 06/25/23 ropinirole 5 mg tablet 5 mg PO HS 01/06/20 06/25/23 insulin lispro 100 unit/mL 22 unit subcut TID 03/19/22 06/25/23 subcutaneous pen (Humalog KwikPen (U-100) Insulin) methenamine hippurate 1 gram tablet 1 g PO BID 07/19/22 06/25/23 oxybutynin chloride 15 mg 15 mg PO DAILY 11/06/22 06/25/23 tablet,extended release 24 hr cyclobenzaprine 5 mg tablet 5 mg PO DIRECTED 06/25/23 06/25/23 gabapentin 300 mg capsule 300 mg PO DIRECTED 06/25/23 06/25/23 tirzepatide 2.5 mg/0.5 mL 2.5 mg subcut WEEKLY 06/25/23 06/25/23 subcutaneous pen injector (Taeundiorro) Allergies Allergy/AdvReac Type Severity Reaction Status Date / Time ceftriaxone Allergy Severe SOB Verified 06/26/23 03:17 cephalexin Allergy Severe Difficulty Verified 06/26/23 03:17 Breathing Cephalosporins Allergy Severe Difficulty Verified 06/26/23 03:17 Breathing lorazepam Allergy Severe Swelling Verified 06/26/23 03:17 metoclopramide Allergy Intermediate Other Verified 06/26/23 03:17 chlorhexidine Allergy Mild BLISTERING Verified 06/26/23 03:17 levofloxacin Allergy Mild Hives / Verified 06/26/23 03:17 Red Face ketorolac Allergy Itching Verified 06/26/23 03:17 latex Allergy Rash Verified 06/26/23 03:17 nitrofurantoin Allergy Itching Verified 06/26/23 03:17 sulfamethoxazole Allergy Itching Verified 06/26/23 03:17 [From Sulfamethoxazole-Trimethoprim] trazodone Allergy Swelling Verified 06/26/23 03:17 of Lip/Tongue/Throat trimethoprim Allergy Itching Verified 06/26/23 03:17 [From Sulfamethoxazole-Trimethoprim] oxycodone AdvReac Mild Vomiting Verified 06/26/23 03:17 amlodipine AdvReac Swelling Verified 06/26/23 03:17 lisinopril AdvReac Swelling Verified 06/26/23 03:17 meropenem AdvReac Rash Verified 06/26/23 03:17 pregabalin AdvReac Swelling Verified 06/26/23 03:17 reslizumab AdvReac Unknown Verified 06/26/23 03:17 Review of Systems Review of Systems: All systems are reviewed and are negative unless stated otherwise in the HPI. [facility] Past Medical History Medical History Anxiety Breast cancer Chronic anticoagulation Chronic back pain Collagenous colitis Congestive heart failure COVID-19 Deep venous thrombosis Depression Irritable bowel syndrome Kidney stone Morbid obesity Multiple thyroid nodules Obstructive sleep apnea on CPAP Overactive bladder Peripheral neuropathy Pulmonary embolism positive for coagulation workup Restless leg syndrome Type 2 diabetes mellitus Surgical History Surgical History History of bilateral mastectomy History of cardiac catheterization Reportedly negative for coronary artery disease. History of cholecystectomy History of colonoscopy History of cystoscopy History of esophagogastroduodenoscopy (EGD) History of right oophorectomy History of total right knee replacement History of umbilical hernia repair History of ureter stent Status post insertion of spinal cord stimulator Family History Family History Mother Diabetes mellitus Acute myocardial infarction Cerebrovascular accident Hypertension Congestive heart failure Father Prostate carcinoma Sibling Breast cancer Acute myocardial infarction Chronic obstructive pulmonary disease Social History Social History Social History: Surrogate medical decision maker: Jimmie Marques, spouse. Code status: Full code. Smoking packs per day: 0 Smoking cigarettes per day: 0.0 Years smoked: 2 Smoking pack-years: 0.00 Smoking status: Former smoker Second hand tobacco smoke exposure: Yes Alcohol intake: never Substance use: never Substance use type: does not use Lack of Transportation: No Lack of Food: Never True Current Housing: I Have Housing Concerned About Future Housing: No Difficulty Paying Gas/Electric Bills: No Difficulty Paying for Meds: No Currently Unemployed: No Education: Decline to Answer Difficulty w/ Childcare or Family Care: No Living arrangements: with family Additional occupation/education comments: Disabled. Spiritual care concerns: No Exam Narrative: General: Alert, awake, afebrile, in no acute distress, obese. HEENT: PERRL, no rhinorrhea, no post nasal drip, oropharynx clear. Cardiovascular: Regular rate and rhythm, no murmurs, rubs or gallops, no peripheral edema. Respiratory: Clear to auscultation bilaterally, no tachypnea, no wheezing, no rhonchi, no rubs, no respiratory distress. Abdomen: Soft, nontender, nondistended, no rebound, no guarding, no peritoneal signs. Musculoskeletal: No joint swelling or deformity, normal muscle tone. Skin: No rashes or petechia, no signs of infection. Neurological: Alert and oriented to person, place, and time. Follows all commands. No focal deficits, speech is clear and fluent. Course Vital Signs Vital signs: Vital Signs Temperature 97.6 F 09/24/23 19:07 Pulse Rate 86 09/24/23 19:07 Respiratory Rate 16 09/24/23 19:07 Blood Pressure 151/78 H 09/24/23 19:07 Pulse Oximetry 99 09/24/23 19:07 Oxygen Delivery Room Air 09/24/23 19:07 Temperature 97.6 F 09/24/23 19:07 Pulse Rate 86 09/24/23 19:07 Respiratory Rate 16 09/24/23 19:07 Blood Pressure 151/78 H 09/24/23 19:07 Pulse Oximetry 99 09/24/23 19:07 Oxygen Delivery Room Air 09/24/23 19:07 Medical Decision Making MDM Narrative Medical decision making narrative: The patient was evaluated by myself in the emergency department. History is obtained from patient who is an independent historian and physical exam was performed. External medical records were reviewed at this time. IV was established and pertinent tests were ordered. EKG was obtained which revealed sinus rhythm at a rate of 83 beats per minute. No ST changes, T wave inversions or evidence of acute ischemia. EKG was independently interpreted by me and is currently pending official cardiology read. Laboratory results obtained revealing no acute process. Imaging studies obtained included CXR which was independently interpreted by me revealing no acute process, which is pending final radiology interpretation. Differential diagnosis considerations include gabapentin withdrawal, acute viral syndrome, rhabdomyolysis. Comorbidities impacting this visit include none. I have evaluated and discussed social determinants of health with the patient that could potentially impact subsequent diagnosis and treatment plans. On repeat assessment of the patient, reevaluation revealed that the patient is doing well and is in no acute distress. Patient symptoms have improved since she arrived to our emergency department. Repeat vital signs were all reviewed and noted to be stable. Differential diagnosis and treatment plan were discussed with the patient at bedside. Patient agrees with discussion and after shared medical decision making agrees with discharge. All questions were answered to the patient's satisfaction. Patient will follow up with her PCP/ stitcher set up operator automatic in 3-5 days. She was instructed that she cannot stop taking her medications suddenly without talking to her family doctor as these medications need to be tapered down to prevent withdrawal symptoms and patient is agreeable. She was instructed to return taking her gabapentin at her regular dose until she follows up with her family doctor and patient is agreeable. Patient was provided with strict return precautions and instructed to return to the emergency department if any new or worsening symptoms develop. The patient was discharged in stable condition. Vital Signs Vital Signs: Vital Signs Temperature 97.6 F 09/24/23 19:07 Pulse Rate 86 09/24/23 19:07 Respiratory Rate 16 09/24/23 19:07 Blood Pressure 151/78 H 09/24/23 19:07 Pulse Oximetry 99 09/24/23 19:07 Oxygen Delivery Room Air 09/24/23 19:07 Temperature 97.6 F 09/24/23 19:07 Pulse Rate 86 09/24/23 19:07 Respiratory Rate 16 09/24/23 19:07 Blood Pressure 151/78 H 09/24/23 19:07 Pulse Oximetry 99 09/24/23 19:07 Oxygen Delivery Room Air 09/24/23 19:07 Lab Data 09/24/23 20:29 09/24/23 21:12 Labs: Lab Results 09/24/23 09/24/23 Range/Units 20:29 21:12 WBC 11.2 H (4.5-10.0) K/mm3 RBC 4.61 (4.2-5.4) M/mm3 Hgb 13.2 (12.0-15.0) g/dL Hct 41.7 (37.0-47.0) % MCV 90.5 (80-100) fl MCH 28.6 (26-34) pg MCHC 31.7 L (32-36) g/dl RDW 13.8 (11.5-14.5) % Plt Count 289 (150-375) k/mm3 MPV 10.4 (7.4-10.4) fl Immature Gran % (Auto) 0.3 (0-0.5) % Neut % (Auto) 64.6 (45.5-73.1) % Lymph % (Auto) 25.2 (18.3-44.2) % [place] % (Auto) 6.8 (2.6-8.5) % Eos % (Auto) 2.7 (0-4.4) % Baso % (Auto) 0.4 (0.2-1.2) % Lymph # (Auto) 2.82 (0.9-3.2) K/mm3 [place] # (Auto) 0.8 H (0.1-0.6) K/mm3 Eos # (Auto) 0.3 (0-0.3) K/mm3 Baso # (Auto) 0.1 (0.0-0.1) K/mm3 Abs Immat Gran (auto) 0.03 (0.00-0.031) K/mm3 Absolute Neuts (auto) 7.2 H (1.3-6.7) K/mm3 Absolute Nucleated RBC 0.000 (0.0-0.012) K/mm3 Nucleated RBC % 0.0 (0.0-0.2) % Sodium 138 (137-145) mmol/L Potassium 4.1 (3.4-5.0) mmol/L Chloride 103 (98-107) mmol/L Carbon Dioxide 28 (22-30) mmol/L Anion Gap 7 (4-12) mmol/L BUN 20 H (7-17) mg/dL Creatinine 0.70 (0.7-1.0) mg/dL Estim Creat Clear Calc 81 ml/min Estimated GFR > 60 (59 - ) Glucose 196 H (65-110) mg/dL Calcium 9.9 (8.4-10.2) mg/dL Magnesium 1.6 (1.6-2.3) mg/dL Total Bilirubin 0.5 (0.2-1.3) mg/dL AST 24 (14-36) U/L ALT 20 (6-35) U/L Alkaline Phosphatase 75 (38-126) U/L Total Creatine Kinase Cancelled 97 Total Protein 8.0 (6.3-8.2) g/dL Albumin 4.0 (3.5-5.1) g/dL TSH (Reflex) 3.820 (0.465-4.68) uIU/mL Influenza A (RT-PCR) Negative (Negative) Influenza B (RT-PCR) Negative (Negative) RSV (RT-PCR) Negative (Negative) SARS-CoV-2 RNA (RT-PCR) Negative (Negative) Discharge Plan Discharge Clinical Impression: Drug withdrawal Patient Disposition: Home, Self-Care Condition: Stable Instructions: Antibiotic Form, Gabapentin (By mouth) Additional Instructions: Please follow-up with your family doctor within the next 3-5 days. You were instructed that you should not stop taking your medications without being told by your family doctor as this can precipitate sudden withdrawal symptoms. You also instructed to restart taking your gabapentin at the dose that you were previously on until you follow-up with your family doctor who may taper you off of that medicine in a more appropriate fashion. Return to the emergency department if any new or worsening symptoms develop. Prescriptions: No Action gabapentin 300 mg capsule 300 mg PO DIRECTED cyclobenzaprine 5 mg tablet 5 mg PO DIRECTED Mounjaro 2.5 mg/0.5 mL pen injector 2.5 mg SUBCUT WEEKLY amitriptyline 25 mg tablet 25 mg PO HS exemestane 25 mg tablet 25 mg PO HS ropinirole 5 mg tablet 5 mg PO HS insulin glargine [Lantus Solostar U-100 Insulin] 100 unit/mL (3 mL) insulin pen 50 unit SUBCUT QAM Xarelto 20 mg tablet 20 mg PO DAILY insulin lispro [Humalog KwikPen Insulin] 100 unit/mL insulin pen 22 unit SUBCUT TID albuterol sulfate 90 mcg/actuation HFA aerosol inhaler 1 inh inhalation QID PRN (Reason: shortness of breath or wheezing) Qty: 6.7 0RF oxybutynin chloride 15 mg tablet extended release 24hr 15 mg PO DAILY ondansetron 4 mg tablet,disintegrating 4 mg PO Q8H PRN (Reason: nausea and vomiting) Qty: 10 0RF methenamine hippurate 1 gram tablet 1 g PO BID amoxicillin-pot clavulanate 875-125 mg tablet 1 tablet PO Q12H Qty: 20 0RF ondansetron 4 mg tablet,disintegrating 4 mg PO Q8H PRN (Reason: nausea and vomiting) Qty: 14 0RF dicyclomine 20 mg tablet 20 mg PO QID Qty: 20 0RF Follow-up/Referrals: Shahla,Justen Spicer MD [Primary Care Provider] - 3 Days Time of Disposition: 22:23
[2023-09-24 20:35] LABS: Basophils Absolute Auto 0.1 K/mm3 (0.0-0.1); Basophils Percent Auto 0.4 % (0.2-1.2); Eosinophils Absolute Auto 0.3 K/mm3 (0-0.3); Eosinophils Percent Auto 2.7 % (0-4.4); Hematocrit 41.7 % (37.0-47.0); Hemoglobin 13.2 g/dL (12.0-15.0); Immature Granulocyte Absolute 0.03 K/mm3 (0.00-0.031); Immature Granulocyte Percent A 0.3 % (0-0.5); Lymphocytes Absolute Auto 2.82 K/mm3 (0.9-3.2); Lymphocytes Percent Auto 25.2 % (18.3-44.2); Mean Corpuscular HGB Conc 31.7 g/dl (32-36); Mean Corpuscular Hemoglobin 28.6 pg (26-34); Mean Corpuscular Volume 90.5 fl (80-100); Mean Platelet Volume 10.4 fl (7.4-10.4); Monocytes Absolute Auto 0.8 K/mm3 (0.1-0.6); Monocytes Percent Auto 6.8 % (2.6-8.5); Neutrophils Absolute Auto 7.2 K/mm3 (1.3-6.7); Neutrophils Percent Auto 64.6 % (45.5-73.1); Platelet Count Result 289 k/mm3 (150-375); Red Blood Count 4.61 M/mm3 (4.2-5.4); Red Cell Distribution Width 13.8 % (11.5-14.5); White Blood Count 11.2 K/mm3 (4.5-10.0)
[2023-09-24 21:11] LABS: Influenza A QL RT-PCR Negative (Negative); Influenza B QL RT-PCR Negative (Negative); RSV RNA, RT-PCR Negative (Negative); SARS-CoV-2 RNA PCR Negative (Negative)
[2023-09-24 21:45] LABS: Alanine Aminotransferase 20 U/L (6-35); Alkaline Phosphatase 75 U/L (38-126); Anion Gap 7 mmol/L (4-12); Aspartate Amino Transferase 24 U/L (14-36); Bilirubin,Total 0.5 mg/dL (0.2-1.3); Blood Urea Nitrogen 20 mg/dL (7-17); Calcium 9.9 mg/dL (8.4-10.2); Carbon Dioxide 28 mmol/L (22-30); Chloride 103 mmol/L (98-107); Creatine Kinase 97 U/L (30-135); Estimated CRCL calculation 81 ml/min; Estimated Glomerular Filt Rate > 60; Glucose 196 mg/dL (65-110); Magnesium 1.6 mg/dL (1.6-2.3); Potassium 4.1 mmol/L (3.4-5.0); Sodium 138 mmol/L (137-145)
[2023-09-24] MEDS: MORPHINE SULFATE (*CRX) 2 MG/ML INJ IV PUSH (21:46)
[2023-09-24] MEDS: ONDANSETRON INJ 4 MG/2 ML VIAL IV PUSH (21:46)
--- NOTE | 2023-09-24 23:00 | PC.NURSE ---
Pt to ED looking anxious, jittery, tearful and this RN sat with the patient discussing symptoms that have caused her to seek medical attention. Patient states that she has all kinds of symptoms - anxiety, weight loss, feeling jittery, palpitations, joint pain. patient states that she has a history of nodules on her thyroid, one that needs to get biopsied. patient has a past history of breast cancer with lymphnode removal so is anxious with the symptoms she is feeling. patient does state that about 10 days ago she stopped taking her gabapentin cold turkey.
== END 2023-09-24 22:36 | disposition home or self-care (01) ==
PROVIDERS: Emergency Provider Emergency Medicine; PCP Internal Medicine
DX: F19.239 Other psychoactive substance dependence with withdrawal, unspecified (principal); F41.9 Anxiety disorder, unspecified; Z85.3 Personal history of malignant neoplasm of breast; Z79.01 Long term (current) use of anticoagulants; M54.50 Low back pain, unspecified; G89.29 Other chronic pain; I50.9 Heart failure, unspecified; Z86.718 Personal history of other venous thrombosis and embolism; F32.A Depression, unspecified; Z87.442 Personal history of urinary calculi; G47.30 Sleep apnea, unspecified; E11.9 Type 2 diabetes mellitus without complications; G25.81 Restless legs syndrome; Z20.822 Contact with and (suspected) exposure to COVID-19; Z86.711 Personal history of pulmonary embolism
CPT/HCPCS: 36415; 71045; 80053; 82550; 83735; 84443; 85025; 87637; 93005; 96374; 96375; 99284; J2270; J2405

== ENCOUNTER 2023-09-28 21:51 | Emergency (ER) | payer MEDICARE, MEDICAID, SELFPAY ==
--- NOTE | ~2023-09-28 | XR_ITS ---
XR tibia fibula RT 2V Ordering provider: Eddi Shrestha MD History: . HIT MEDIAL SIDE OF LEG ON BATHTUB FELL PAIN BRUSING . Comparison: None. FINDINGS: BONES: No acute fracture or dislocation. Lucency in the talus is noted. Proper views are advised. JOINT SPACES: Total knee arthroplasty. SOFT TISSUES: Normal. Calcaneus. . IMPRESSION: No acute osseous abnormality of the tibia and fibula. Total knee arthroplasty. Lucency in the dome of the talus laterally. Proper views are advised. Reviewed, dictated and finalized at location A.
[2023-09-28 21:58] VITALS: BP 160/83; PULSE 118; RESP 18; TEMP 36.8; O2SAT 99
--- NOTE | 2023-09-28 23:01 | ED.GENADULT ---
HPI - General Adult General Chief complaint: Extremity Injury, Lower Stated complaint: fall, right leg pain Time Seen by Provider: 09/28/23 22:43 Source: patient Mode of arrival: ambulatory Limitations: no limitations History of Present Illness HPI narrative: this is a 68-year-old female With PMH of DVT, PE, T2 dm, CHF, right knee replacement who presents to the ED with chief complaint of a fall while trying to get out of the bathtub earlier this morning around 10:00 a.m.. Patient reports that she slipped and fell forwards hitting the frontal/medial right de leon on the top bathtub. States that she was nervous because she takes blood thinners so she called her PCP call line who recommended going to the ER further evaluation. denies numbness, weakness, any further sites of pain or injury. Denies head injury or LOC. per chart review Anti coag on Xarelto 20 mg daily Related Data Home Medications Medication Instructions Recorded Confirmed amitriptyline 25 mg tablet 25 mg PO HS 01/06/20 06/25/23 exemestane 25 mg tablet 25 mg PO HS 01/06/20 06/25/23 insulin glargine 100 unit/mL (3 50 unit subcut QAM 01/06/20 06/25/23 mL) subcutaneous pen (Lantus Solostar U-100 Insulin) rivaroxaban 20 mg tablet (Xarelto) 20 mg PO DAILY 01/06/20 06/25/23 ropinirole 5 mg tablet 5 mg PO HS 01/06/20 06/25/23 insulin lispro 100 unit/mL 22 unit subcut TID 03/19/22 06/25/23 subcutaneous pen (Humalog KwikPen (U-100) Insulin) methenamine hippurate 1 gram tablet 1 g PO BID 07/19/22 06/25/23 oxybutynin chloride 15 mg 15 mg PO DAILY 11/06/22 06/25/23 tablet,extended release 24 hr cyclobenzaprine 5 mg tablet 5 mg PO DIRECTED 06/25/23 06/25/23 gabapentin 300 mg capsule 300 mg PO DIRECTED 06/25/23 06/25/23 tirzepatide 2.5 mg/0.5 mL 2.5 mg subcut WEEKLY 06/25/23 06/25/23 subcutaneous pen injector (Mounjaro) Allergies Allergy/AdvReac Type Severity Reaction Status Date / Time ceftriaxone Allergy Severe SOB Verified 06/26/23 03:17 cephalexin Allergy Severe Difficulty Verified 06/26/23 03:17 Breathing Cephalosporins Allergy Severe Difficulty Verified 06/26/23 03:17 Breathing lorazepam Allergy Severe Swelling Verified 06/26/23 03:17 metoclopramide Allergy Intermediate Other Verified 06/26/23 03:17 chlorhexidine Allergy Mild BLISTERING Verified 06/26/23 03:17 levofloxacin Allergy Mild Hives / Verified 06/26/23 03:17 Red Face ketorolac Allergy Itching Verified 06/26/23 03:17 latex Allergy Rash Verified 06/26/23 03:17 nitrofurantoin Allergy Itching Verified 06/26/23 03:17 sulfamethoxazole Allergy Itching Verified 06/26/23 03:17 [From Sulfamethoxazole-Trimethoprim] trazodone Allergy Swelling Verified 06/26/23 03:17 of Lip/Tongue/Throat trimethoprim Allergy Itching Verified 06/26/23 03:17 [From Sulfamethoxazole-Trimethoprim] oxycodone AdvReac Mild Vomiting Verified 06/26/23 03:17 amlodipine AdvReac Swelling Verified 06/26/23 03:17 lisinopril AdvReac Swelling Verified 06/26/23 03:17 meropenem AdvReac Rash Verified 06/26/23 03:17 pregabalin AdvReac Swelling Verified 06/26/23 03:17 reslizumab AdvReac Unknown Verified 06/26/23 03:17 Review of Systems Review of Systems: All systems as dictated in [facility] Past Medical History Medical History Anxiety Breast cancer Chronic anticoagulation Chronic back pain Collagenous colitis Congestive heart failure COVID-19 Deep venous thrombosis Depression Irritable bowel syndrome Kidney stone Morbid obesity Multiple thyroid nodules Obstructive sleep apnea on CPAP Overactive bladder Peripheral neuropathy Pulmonary embolism positive for coagulation workup Restless leg syndrome Type 2 diabetes mellitus Surgical History Surgical History History of bilateral mastectomy History of cardiac catheterization Reportedly negative
== END 2023-09-28 23:25 | disposition home or self-care (01) ==
PROVIDERS: Emergency Provider Physician Assistant; PCP Internal Medicine
DX: S80.11XA Contusion of right lower leg, initial encounter (principal); I50.9 Heart failure, unspecified; E11.42 Type 2 diabetes mellitus with diabetic polyneuropathy; E66.01 Morbid (severe) obesity due to excess calories; Z68.43 Body mass index [BMI] 50.0-59.9, adult; K58.9 Irritable bowel syndrome, unspecified; N32.81 Overactive bladder; G25.81 Restless legs syndrome; G47.33 Obstructive sleep apnea (adult) (pediatric); F32.A Depression, unspecified; F41.9 Anxiety disorder, unspecified; Z96.651 Presence of right artificial knee joint; Z96.82 Presence of neurostimulator; Z85.3 Personal history of malignant neoplasm of breast; Z87.442 Personal history of urinary calculi; Z86.16 Personal history of COVID-19; Z86.718 Personal history of other venous thrombosis and embolism; Z87.891 Personal history of nicotine dependence; Z90.13 Acquired absence of bilateral breasts and nipples; Z90.49 Acquired absence of other specified parts of digestive tract; Z90.721 Acquired absence of ovaries, unilateral; Z79.85 Long-term (current) use of injectable non-insulin antidiabetic drugs; Z79.4 Long term (current) use of insulin; Z79.899 Other long term (current) drug therapy; Z79.01 Long term (current) use of anticoagulants; W18.2XXA Fall in (into) shower or empty bathtub, initial encounter
CPT/HCPCS: 73590; 99283

== ENCOUNTER 2023-10-02 03:05 | Observation (INO) | payer MEDICARE, MEDICAID, SELFPAY ==
[2023-10-02] VITALS (11 sets, daily range): BP systolic 123–153; BP diastolic 67–84; PULSE 62–81; RESP 14–20; TEMP 36.2–36.9; O2SAT 95–100; BMI 49.5
--- NOTE | ~2023-10-02 | CT_ITS ---
Noncontrast CT scan of the lumbar spine CLINICAL HISTORY: Back pain TECHNIQUE: Axial noncontrast imaging of the lumbar spine was performed. Sagittal and coronal reformat lio images were constructed. Dose reduction technique was used on this scan by utilizing automated ex posure control and iterative reconstruction technique. The dose-length product (DLP) was 1347.31 mGy- cm. FINDINGS: There is no fracture or subluxation of the lumbar spine. Vertebral bodies maintain normal h eight and alignment. Intervertebral disc spaces are relatively well-preserved. At L1-L2, there is mild disc bulge and mild to moderate facet arthropathy. No clary central canal carlitos nosis. Probable mild bilateral neural foraminal narrowing. At L2-L3, there is disc bulge and facet arthropathy, probable mild central canal stenosis. Neural for silvia are relatively well-preserved. At L3-L4, there is disc bulge and facet arthropathy, with probable moderate central canal stenosis. T here is severe right neural foraminal narrowing. There is minimal left neural foraminal narrowing. At L4-L5, there is disc bulge and severe facet arthropathy. No definite canal stenosis. There is mild left neural foraminal narrowing. L5-S1, there is minimal disc bulge. No definite canal stenosis or neural foraminal narrowing. Paravertebral soft tissues are. Advanced degenerative changes bilateral SI joints. Impression: No acute abnormality. Degenerative spondylosis, as above, probably worst at L3-L4. Probable advanced degenerative change of the bilateral SI joints. Reviewed, dictated and finalized at [facility]. Impression: No acute abnormality. Degenerative spondylosis, as above, probably worst at L3-L4. Probable advanced degenerative change of the bilateral SI joints.
--- NOTE | 2023-10-02 03:41 | ED.BACK ---
HPI - Back Pain/Injury General Chief Complaint: Back Pain/Injury <Riri Linda MD - Last Filed: 10/02/23 06:08> Stated Complaint: BACK PAIN <Riri Linda MD - Last Filed: 10/02/23 06:08> Time Seen by Provider: 10/02/23 03:19 <Riri Linda MD - Last Filed: 10/02/23 06:08> History of Present Illness HPI Narrative: Patient presents here with low back pain, she has history of chronic back pain, has already had nerve stimulator, is already on multiple different medications and already took 2 Vicodin prior to arrival here, today states that she fell a few days ago and now has pain from her right back down to her leg a and that it hurts to move <Riri Linda MD - Last Filed: 10/02/23 06:08> Related Data Home Medications: Home Medications Medication Instructions Recorded Confirmed amitriptyline 25 mg tablet 25 mg PO HS 01/06/20 06/25/23 exemestane 25 mg tablet 25 mg PO HS 01/06/20 10/02/23 insulin glargine 100 unit/mL (3 50 unit subcut QAM 01/06/20 06/25/23 mL) subcutaneous pen (Lantus Solostar U-100 Insulin) rivaroxaban 20 mg tablet (Xarelto) 20 mg PO DAILY 01/06/20 06/25/23 ropinirole 5 mg tablet 5 mg PO HS 01/06/20 10/02/23 insulin lispro 100 unit/mL 22 unit subcut TID 03/19/22 06/25/23 subcutaneous pen (Humalog KwikPen (U-100) Insulin) methenamine hippurate 1 gram tablet 1 g PO BID 07/19/22 10/02/23 oxybutynin chloride 15 mg 15 mg PO DAILY 11/06/22 10/02/23 tablet,extended release 24 hr cyclobenzaprine 5 mg tablet 5 mg PO DIRECTED 06/25/23 06/25/23 gabapentin 300 mg capsule 300 mg PO DIRECTED 06/25/23 10/02/23 tirzepatide 2.5 mg/0.5 mL 2.5 mg subcut WEEKLY 06/25/23 06/25/23 subcutaneous pen injector (Scott) hydrocodone 10 mg-acetaminophen tablet 10/02/23 325 mg tablet <Riri Linda MD - Last Filed: 10/02/23 06:08> Allergies/Adverse Reactions: Allergies Allergy/AdvReac Type Severity Reaction Status Date / Time ceftriaxone Allergy Severe SOB Verified 10/02/23 03:10 cephalexin Allergy Severe Difficulty Verified 10/02/23 03:10 Breathing Cephalosporins Allergy Severe Difficulty Verified 10/02/23 03:10 Breathing lorazepam Allergy Severe Swelling Verified 10/02/23 03:10 metoclopramide Allergy Intermediate Other Verified 10/02/23 03:10 chlorhexidine Allergy Mild BLISTERING Verified 10/02/23 03:10 levofloxacin Allergy Mild Hives / Verified 10/02/23 03:10 Red Face ketorolac Allergy Itching Verified 10/02/23 03:10 latex Allergy Rash Verified 10/02/23 03:10 nitrofurantoin Allergy Itching Verified 10/02/23 03:10 sulfamethoxazole Allergy Itching Verified 10/02/23 03:10 [From Sulfamethoxazole-Trimethoprim] trazodone Allergy Swelling Verified 10/02/23 03:10 of Lip/Tongue/Throat trimethoprim Allergy Itching Verified 10/02/23 03:10 [From Sulfamethoxazole-Trimethoprim] oxycodone AdvReac Mild Vomiting Verified 10/02/23 03:10 amlodipine AdvReac Swelling Verified 10/02/23 03:10 lisinopril AdvReac Swelling Verified 10/02/23 03:10 meropenem AdvReac Rash Verified 10/02/23 03:10 pregabalin AdvReac Swelling Verified 10/02/23 03:10 reslizumab AdvReac Unknown Verified 10/02/23 03:10 <Riri Linda MD - Last Filed: 10/02/23 06:08> Review of Systems Review of Systems: All systems reviewed & are unremarkable except as noted in HPI and below <Riri Linda MD - Last Filed: 10/02/23 06:08> PMFSH Past Medical History Medical History: Medical History Anxiety Breast cancer Chronic anticoagulation Chronic back pain Collagenous colitis Congestive heart failure COVID-19 Deep venous thrombosis Depression Irritable bowel syndrome Kidney stone Morbid obesity Multiple thyroid nodules Obstructive sleep apnea on CPAP Overactive bladder Peripheral neuropathy Pulmonary embolism positive for coagulation workup Restless leg syndrome Type 2 diabetes mellitus <Riri Loomis
--- NOTE | 2023-10-02 03:42 | PC.NURSE ---
Patient in CT at this time.
--- NOTE | 2023-10-02 05:13 | PC.NURSE ---
Patient used call light and requested pain medication. This RN went to speak with patient that the ERP is aware of her request for pain meds and that ERP states to wait for CT read. Upon entering room, patient was resting on stretcher with eyes closed, visible chest rise and fall, VSS, no acute distress noted.
[2023-10-02 05:57] LABS: Basophils Absolute Auto 0.1 K/mm3 (0.0-0.1); Basophils Percent Auto 0.4 % (0.2-1.2); Eosinophils Absolute Auto 0.3 K/mm3 (0-0.3); Eosinophils Percent Auto 2.4 % (0-4.4); Hematocrit 40.1 % (37.0-47.0); Hemoglobin 12.5 g/dL (12.0-15.0); Immature Granulocyte Absolute 0.03 K/mm3 (0.00-0.031); Immature Granulocyte Percent A 0.3 % (0-0.5); Lymphocytes Absolute Auto 2.97 K/mm3 (0.9-3.2); Lymphocytes Percent Auto 25.5 % (18.3-44.2); Mean Corpuscular HGB Conc 31.2 g/dl (32-36); Mean Corpuscular Hemoglobin 28.9 pg (26-34); Mean Corpuscular Volume 92.6 fl (80-100); Mean Platelet Volume 10.1 fl (7.4-10.4); Monocytes Absolute Auto 0.9 K/mm3 (0.1-0.6); Monocytes Percent Auto 7.5 % (2.6-8.5); Neutrophils Absolute Auto 7.5 K/mm3 (1.3-6.7); Neutrophils Percent Auto 63.9 % (45.5-73.1); Platelet Count Result 269 k/mm3 (150-375); Red Blood Count 4.33 M/mm3 (4.2-5.4); White Blood Count 11.7 K/mm3 (4.5-10.0)
--- NOTE | 2023-10-02 06:07 | PC.NURSE ---
Patient used BSC with minimal assist. Patient c/o pain. Patient transferred back to bed with minimal assist. Patient did state she sees pain management and is scheduled to start PT soon but has not done so yet. ERP notified.
[2023-10-02 06:09] LABS: Anion Gap 5 mmol/L (4-12); Blood Urea Nitrogen 22 mg/dL (7-17); Calcium 9.4 mg/dL (8.4-10.2); Carbon Dioxide 28 mmol/L (22-30); Chloride 104 mmol/L (98-107); Estimated Glomerular Filt Rate > 60; Glucose 190 mg/dL (65-110); Potassium 4.1 mmol/L (3.4-5.0); Sodium 137 mmol/L (137-145)
--- NOTE | 2023-10-02 08:33 | PC.NURSE ---
External catheter placed. Pt reports difficulty even with assistance to transfer from bed to commode
--- NOTE | 2023-10-02 08:49 | PCCCNOTE ---
SNF placement referral received for pt. She requests referral be sent to [facility] [place] [facility] [place]. Therapy priority requested as will need for referrals to facilities and insurance authorization.
[2023-10-02] MEDS: HYDROcodone/acetaminophen (*CRX) 10-325 MG TABLET 1 TAB PO ×3 (10:03→19:42)
--- NOTE | 2023-10-02 10:11 | PCCCNOTE ---
Pt choose only facilities close to [place] and she voiced that she has no preference. PT/OT ariadna done. Referrals faxed to [facility], [facility], [facility], [facility], and [facility].
--- NOTE | 2023-10-02 10:47 | PCCCNOTE ---
Lisa with [facility] called to state acceptance. Pt agreed to facility. [facility] authorization request faxed to [facility].
--- NOTE | 2023-10-02 11:53 | PC.NURSE ---
meal tray ordered for pt
[2023-10-02 12:08] LABS: Glucose Point of Care 164 mg/dl (65-105)
--- NOTE | 2023-10-02 16:34 | PC.NURSE ---
Meal tray ordered for pt
--- NOTE | 2023-10-02 17:07 | PCCCNOTE ---
Call placed to [place] and case is still pending Dr Mi, pharmacist in charge and pt informed authorization probably not obtained until 10/03/23. Pending reference # [id number]. Lisa with [facility] aware of pending ref#.
--- NOTE | 2023-10-02 17:55 | PM.IMHP ---
H&P: HPI History of Present Illness Date/Time: 10/02/23 17:55 Chief Complaint: Back pain with sciatica, unable to ambulate or care for self Narrative: This is a 68 patient with a past history of chronic back pain follows with Pain Management and takes 10 mg hydrocodone every 6 hours as needed for pain. Patient reports that few days ago she was trying to get out of the shower and her foot got caught so she fell landing on her right side. Patient was seen in the emergency department and evaluated at that time due to taking blood thinners for chronic blood clotting issues. Evaluation was unremarkable and patient was discharged home. She states that she was doing okay until yesterday morning when she woke up she had lower back pain radiating down the right leg to the thigh. He her usual chronic back pain is left-sided. Patient was brought to the emergency department CT scan was nonacute. Patient cannot undergo MRI due to implanted pain stimulator for her back which is not turned on at this time and patient has plans to have removed because it actually increased her pain rather than improving it. Patient reports she has a past history of diabetes and has been having nausea and vomiting/gastroparesis for the last couple of weeks which has decreased how much she has been eating. Patient denies nausea vomiting at this time. She denies fever or chills. Denies saddle paresthesias. Denies bowel or bladder incontinence or retention. States she uses MiraLax at home as needed for constipation. Patient reports that her home dosing of [place] is not helping her acute pain at this time. She did receive some IV diazepam in the emergency department. Patient did get evaluation by PT and OT but was unable to mobilize sufficiently to return home. Patient is being admitted with the goal of SNF placement. Review of Systems Review of Systems: All systems reviewed & are unremarkable except as noted in HPI and below PMFSH Past Medical History Medical History Anxiety Breast cancer Chronic anticoagulation Chronic back pain Collagenous colitis Congestive heart failure COVID-19 Deep venous thrombosis Depression Irritable bowel syndrome Kidney stone Morbid obesity Multiple thyroid nodules Obstructive sleep apnea on CPAP Overactive bladder Peripheral neuropathy Pulmonary embolism positive for coagulation workup Restless leg syndrome Type 2 diabetes mellitus Surgical History Surgical History History of bilateral mastectomy History of cardiac catheterization Reportedly negative for coronary artery disease. History of cholecystectomy History of colonoscopy History of cystoscopy History of esophagogastroduodenoscopy (EGD) History of right oophorectomy History of total right knee replacement History of umbilical hernia repair History of ureter stent Status post insertion of spinal cord stimulator Family History Family History Mother Diabetes mellitus Acute myocardial infarction Cerebrovascular accident Hypertension Congestive heart failure Father Prostate carcinoma Sibling Breast cancer Acute myocardial infarction Chronic obstructive pulmonary disease Social History Social History Social History: Surrogate medical decision maker: Jimmie Marques, spouse. Code status: Full code. Smoking packs per day: 0 Smoking cigarettes per day: 0.0 Years smoked: 2 Smoking pack-years: 0.00 Smoking status: Former smoker Second hand tobacco smoke exposure: Yes Alcohol intake: never Substance use: never Substance use type: does not use Do You Feel Safe in your Home?: Yes Lack of Transportation: No Lack of Food: Never True Current Housing: I Have Housing Concerned About Future Housing: No Diffi
--- NOTE | 2023-10-02 17:57 | ADMGEN ---
This patient, Karly Marques, was admitted to Medical Room 252-01. Patient/family oriented to hospital policies and general routines including ID bracelet, bed and alarms, visiting hours, pain management, procedures, bathroom and other care routines, personal items, smoking policy, room service/diet, and visiting hours. Information on how to activate the Rapid Response Team has been discussed. Patient/Family are encouraged to report perceived risks to care and to ask questions if they do not understand what they are told or what they should do.
[2023-10-02] MEDS: CYCLOBENZAPRINE HCL 5 MG TABLET PO (19:42)
[2023-10-02] MEDS: rOPINIRole HCL 1 MG TABLET 5 MG PO (19:42)
[2023-10-02] MEDS: RIVAROXABAN 20 MG TABLET PO (19:42)
[2023-10-02 21:03] LABS: Glucose Point of Care 185 mg/dl (65-105)
[2023-10-02 21:06] LABS: Hemoglobin A1C 7.8 % (<5.7)
[2023-10-02] MEDS: HYDROmorphone HCL INJ (*CRX) 1 MG/ML SYR IV PUSH (22:46)
[2023-10-03] MEDS: HYDROcodone/acetaminophen (*CRX) 10-325 MG TABLET 1 TAB PO ×4 (02:31→17:40)
[2023-10-03 02:56] VITALS: PULSE 70; RESP 25; O2SAT 98
[2023-10-03 04:48] VITALS: BP 126/68; PULSE 56; RESP 20; TEMP 36; O2SAT 98
[2023-10-03 05:33] LABS: Basophils Percent Auto 0.3 % (0.2-1.2); Eosinophils Absolute Auto 0.3 K/mm3 (0-0.3); Eosinophils Percent Auto 3.1 % (0-4.4); Hematocrit 42.2 % (37.0-47.0); Hemoglobin 12.9 g/dL (12.0-15.0); Immature Granulocyte Absolute 0.02 K/mm3 (0.00-0.031); Immature Granulocyte Percent A 0.2 % (0-0.5); Lymphocytes Absolute Auto 2.86 K/mm3 (0.9-3.2); Lymphocytes Percent Auto 30.4 % (18.3-44.2); Mean Corpuscular HGB Conc 30.6 g/dl (32-36); Mean Corpuscular Hemoglobin 28.4 pg (26-34); Mean Corpuscular Volume 92.7 fl (80-100); Mean Platelet Volume 9.7 fl (7.4-10.4); Monocytes Absolute Auto 0.8 K/mm3 (0.1-0.6); Monocytes Percent Auto 8.6 % (2.6-8.5); Neutrophils Absolute Auto 5.4 K/mm3 (1.3-6.7); Neutrophils Percent Auto 57.4 % (45.5-73.1); Platelet Count Result 265 k/mm3 (150-375); Red Blood Count 4.55 M/mm3 (4.2-5.4); White Blood Count 9.4 K/mm3 (4.5-10.0)
[2023-10-03 06:03] LABS: Alanine Aminotransferase 18 U/L (6-35); Alkaline Phosphatase 76 U/L (38-126); Anion Gap 3 mmol/L (4-12); Aspartate Amino Transferase 22 U/L (14-36); Bilirubin,Total 1.2 mg/dL (0.2-1.3); Blood Urea Nitrogen 15 mg/dL (7-17); Calcium 9.4 mg/dL (8.4-10.2); Carbon Dioxide 30 mmol/L (22-30); Chloride 102 mmol/L (98-107); Estimated CRCL calculation 93 ml/min; Estimated Glomerular Filt Rate > 60; Glucose 161 mg/dL (65-110); Magnesium 1.7 mg/dL (1.6-2.3); Potassium 4.6 mmol/L (3.4-5.0); Sodium 135 mmol/L (137-145)
[2023-10-03 07:52] LABS: Glucose Point of Care 139 mg/dl (65-105)
[2023-10-03 08:21] VITALS: O2SAT 97
[2023-10-03] MEDS: oxyBUTYnin CHLORIDE XL 5 MG TAB.ER.24 15 MG PO (08:21)
[2023-10-03] MEDS: GABAPENTIN 300 MG CAPSULE PO ×3 (08:21→16:10)
[2023-10-03] MEDS: polyethylene glycoL 3350 17 GM POWD.PACK PO (08:21)
[2023-10-03] MEDS: INSULIN GLARGINE (*BKC) 100 UNITS/ML 28 UNITS SUB-Q (08:25)
[2023-10-03 11:28] LABS: Glucose Point of Care 263 mg/dl (65-105)
[2023-10-03] MEDS: INSULIN ASPART (*BKC) 100 UNITS/ML SUB-Q (12:19)
[2023-10-03 13:55] VITALS: BP 127/55; PULSE 68; RESP 16; TEMP 36.7; O2SAT 97
--- NOTE | 2023-10-03 14:39 | PM.DS ---
DS: Admitting Diagnosis Discharge Date 10/03/23 Admitting Diagnosis Back pain DS: Discharge Diagnosis Discharge Diagnosis (1) Sciatica, right side: Code(s): M54.31 - Sciatica, right side Status: Acute (2) Unable to ambulate: Code(s): R26.2 - Difficulty in walking, not elsewhere classified Status: Acute (3) Chronic anticoagulation: Code(s): Z79.01 - FDC (current) use of anticoagulants Status: Acute (4) Type 2 diabetes mellitus: Code(s): E11.9 - Type 2 diabetes mellitus without complications Status: Acute (5) Restless leg syndrome: Code(s): G25.81 - Restless legs syndrome Status: Acute (6) Obstructive sleep apnea on CPAP: Code(s): G47.33 - Obstructive sleep apnea (adult) (pediatric) Status: Acute DS: Summary Hospital Course Reason for hospitalization: 68yo female with DM, LUL and chronic low back pain who follows with pain management here for increasing low back pain and right sciatic symptoms occurring a few days after a fall. Please see H&P for details. Hospital Course: CT scan of the lumbar spine showing no acute abnormalities but shows degenerative spondylosis worst at L3-4. There was a lumbar CT in July that shows similar findings. WBC slingtly elevated but normal on repeat. CBC otherwise normal. A1c 7.8. CMP essentially normal She worked with PT/OT in the ED and was able to ambulate but had difficulty due to pain. She was given [place] and Flexeril. Dilaudid was available as needed but she only required one dose. She was accepted for SNF placement. Spoke with radiology and there was no change in the CT when compared to lumbar CT from 07/26/23. She did well and was able to be discharged on 10/03/23. She was agreeable with discharge and all questions answered. She understands that she should come back if unable to bear weight on the leg or other concerning symptoms. (Note: [place] 10/325mg home medication was sent to be printed but never do so had to be cancelled and reordered as new Rx) Status at Discharge Cognitive/behavioral status at discharge: stable Time Spent with Patient Time attestation: Total time spent providing and/or coordinating discharge services: 34 minutes Time spent: Greater than 30 minutes Exam Narrative: AF 98.1 127/55 68 16 97% ra Gen - NARD Chest - CTA bilaterally, nml RR CV - RRR S1/S2 Abd - Soft, obese, NT Ext - nonpitting edema. 2+ DP bilaterally. normal perfusion Neuro - Alert and oriented. dorsi and plantar flexion normal strength. Difficulty with hip flexors due to pain bilaterally. +SLR to the right and minimal to the left. negative babinski. No ankle clonus. Psych - Nml mood and affect Skin - Warm and dry DS: Data Data Completed and Pending Labs on day of discharge: Labs from last 24 hours 10/03/23 10/03/23 10/03/23 11:21 07:44 05:23 WBC 9.4 RBC 4.55 Hgb 12.9 Hct 42.2 MCV 92.7 MCH 28.4 MCHC 30.6 L RDW 14.0 Plt Count 265 MPV 9.7 Immature Gran % (Auto) 0.2 Neut % (Auto) 57.4 Lymph % (Auto) 30.4 [place] % (Auto) 8.6 H Eos % (Auto) 3.1 Baso % (Auto) 0.3 Lymph # (Auto) 2.86 [place] # (Auto) 0.8 H Eos # (Auto) 0.3 Baso # (Auto) 0.0 Abs Immat Gran (auto) 0.02 Absolute Neuts (auto) 5.4 Absolute Nucleated RBC 0.000 Nucleated RBC % 0.0 Sodium 135 L Potassium 4.6 Chloride 102 Carbon Dioxide 30 Anion Gap 3 L BUN 15 D Creatinine 0.60 L Estim Creat Clear Calc 93 Estimated GFR > 60 Glucose 161 H POC Capillary Glucose 263 H 139 H Hemoglobin A1c Calcium 9.4 Magnesium 1.7 Total Bilirubin 1.2 AST 22 ALT 18 Alkaline Phosphatase 76 Total Protein 8.0 Albumin 4.0 10/02/23 10/02/23 20:51 19:38 WBC RBC Hgb Hct MCV MCH MCHC RDW Plt Count MPV Immature Gran % (Auto) Neut % (Auto) Lymph % (Auto) Meigs % (Auto)
[2023-10-03] MEDS: RIVAROXABAN 20 MG TABLET PO (16:10)
[2023-10-03] MEDS: HYDROmorphone HCL INJ (*CRX) 1 MG/ML SYR IV PUSH (16:10)
[2023-10-03 16:34] LABS: SARS-CoV-2 RNA PCR Negative (Negative)
[2023-10-03 16:57] LABS: Glucose Point of Care 183 mg/dl (65-105)
== END 2023-10-03 18:09 ==
LOC: ANHED 09:56 → ANH2MED 10-03 14:48
PROVIDERS: Emergency Medicine; Nurse Practitioner; Admitting Provider Internal Medicine; Emergency Provider Emergency Medicine; PCP Internal Medicine; Visit Provider Internal Medicine
DX: M54.41 Lumbago with sciatica, right side (principal); Z96.82 Presence of neurostimulator; W19.XXXA Unspecified fall, initial encounter; I50.9 Heart failure, unspecified; E11.42 Type 2 diabetes mellitus with diabetic polyneuropathy; G47.33 Obstructive sleep apnea (adult) (pediatric); G25.81 Restless legs syndrome; F41.9 Anxiety disorder, unspecified; F32.A Depression, unspecified; Z86.718 Personal history of other venous thrombosis and embolism; Z86.711 Personal history of pulmonary embolism; E66.01 Morbid (severe) obesity due to excess calories; Z68.42 Body mass index [BMI] 45.0-49.9, adult; Z85.3 Personal history of malignant neoplasm of breast; Z79.4 Long term (current) use of insulin; Z79.01 Long term (current) use of anticoagulants; Z79.85 Long-term (current) use of injectable non-insulin antidiabetic drugs; Z79.891 Long term (current) use of opiate analgesic; Z79.51 Long term (current) use of inhaled steroids; Z11.52 Encounter for screening for COVID-19
CPT/HCPCS: 36415; 72131; 80048; 80053; 82948; 83036; 83735; 85025; 87635; 94002; 96374; 96376; 97161; 97165; 99285; A9270; G0378; J1170; J1815

== ENCOUNTER 2023-10-07 15:10 | Emergency (ER) | payer MEDICARE, MEDICAID, SELFPAY ==
[2023-10-07 15:22] VITALS: BP 163/88; PULSE 81; RESP 16; TEMP 37; O2SAT 99
--- NOTE | 2023-10-07 15:22 | ED.LOWEXIN ---
HPI - Extremity Injury (Lower) General Chief Complaint: Extremity Injury, Lower Stated Complaint: has a knot on rt leg Time Seen by Provider: 10/07/23 15:22 Source: patient Mode of arrival: ambulatory Limitations: no limitations History of Present Illness HPI Narrative: 68-year-old female with a history of diabetes, PE and DVT presented for complaint of a knot? in the right leg. She states she injured the right leg on 09/28/2023 when she slipped striking the leg (anterior/medial aspect) on the side of the bathtub. Pt was seen in the ER following this injury, with negative xray. Pt reports compliance with Xarelto, however she states the knot is new. Pt contacted pcp who advised evaluation. Pt currently denies calf pain, leg swelling, redness, warmth, numbness, tingling or weakness to the leg. Denies cp, palpitations, sob or dizziness. Taking hydrocodone for chronic back pain. Related Data Home Medications Medication Instructions Recorded Confirmed exemestane 25 mg tablet 25 mg PO HS 01/06/20 10/07/23 insulin glargine 100 unit/mL (3 32 unit subcut QAM 01/06/20 10/07/23 mL) subcutaneous pen (Lantus Solostar U-100 Insulin) ropinirole 5 mg tablet 5 mg PO HS 01/06/20 10/07/23 insulin lispro 100 unit/mL 28 unit subcut TID 03/19/22 10/07/23 subcutaneous pen (Humalog KwikPen (U-100) Insulin) methenamine hippurate 1 gram tablet 1 g PO BID 07/19/22 10/07/23 oxybutynin chloride 15 mg 15 mg PO DAILY 11/06/22 10/07/23 tablet,extended release 24 hr gabapentin 300 mg capsule 300 mg PO TID 06/25/23 10/07/23 Allergies Allergy/AdvReac Type Severity Reaction Status Date / Time ceftriaxone Allergy Severe SOB Verified 10/07/23 15:18 cephalexin Allergy Severe Difficulty Verified 10/07/23 15:18 Breathing Cephalosporins Allergy Severe Difficulty Verified 10/07/23 15:18 Breathing lorazepam Allergy Severe Swelling Verified 10/07/23 15:18 metoclopramide Allergy Intermediate Other Verified 10/07/23 15:18 chlorhexidine Allergy Mild BLISTERING Verified 10/07/23 15:18 levofloxacin Allergy Mild Hives / Verified 10/07/23 15:18 Red Face ketorolac Allergy Itching Verified 10/07/23 15:18 latex Allergy Rash Verified 10/07/23 15:18 nitrofurantoin Allergy Itching Verified 10/07/23 15:18 sulfamethoxazole Allergy Itching Verified 10/07/23 15:18 [From Sulfamethoxazole-Trimethoprim] trazodone Allergy Swelling Verified 10/07/23 15:18 of Lip/Tongue/Throat trimethoprim Allergy Itching Verified 10/07/23 15:18 [From Sulfamethoxazole-Trimethoprim] oxycodone AdvReac Mild Vomiting Verified 10/07/23 15:18 amlodipine AdvReac Swelling Verified 10/07/23 15:18 lisinopril AdvReac Swelling Verified 10/07/23 15:18 meropenem AdvReac Rash Verified 10/07/23 15:18 pregabalin AdvReac Swelling Verified 10/07/23 15:18 reslizumab AdvReac Unknown Verified 10/07/23 15:18 Review of Systems Review of Systems: CONSTITUTIONAL: Denies fever, chills, or sweats. CARDIOVASCULAR: Denies chest pain, palpitations, or edema. RESPIRATORY: Denies cough or dyspnea. GASTROINTESTINAL: Denies abdominal pain, nausea, vomiting, or diarrhea. SKIN: Denies rash, itching, or wounds. MUSCULOSKELETAL: reports right lower leg skin knot NEUROLOGIC: Denies numbness, tingling, or weakness. All systems reviewed & are unremarkable except as noted in HPI and below PMFSH Past Medical History Medical History Anxiety Breast cancer Chronic anticoagulation Chronic back pain Collagenous colitis Congestive heart failure COVID-19 Deep venous thrombosis Depression Irritable bowel syndrome Kidney stone Morbid obesity Multiple thyroid nodules Obstructive sleep apnea on CPAP Overactive bladder Peripheral neuropathy Pulmonary embolism positive for coagulation workup Restless leg syndrome Type 2 diabetes mellitus Surgical History Surgical History (Reviewed 10/07/23 @ 15:46 by Ricarda
== END 2023-10-07 15:45 | disposition home or self-care (01) ==
PROVIDERS: Emergency Provider Nurse Practitioner Family; PCP Internal Medicine
DX: S80.11XA Contusion of right lower leg, initial encounter (principal); X58.XXXA Exposure to other specified factors, initial encounter; Z86.718 Personal history of other venous thrombosis and embolism; Z86.711 Personal history of pulmonary embolism; E11.42 Type 2 diabetes mellitus with diabetic polyneuropathy; I50.9 Heart failure, unspecified; E66.01 Morbid (severe) obesity due to excess calories; Z68.43 Body mass index [BMI] 50.0-59.9, adult; G47.33 Obstructive sleep apnea (adult) (pediatric); G25.81 Restless legs syndrome; Z85.3 Personal history of malignant neoplasm of breast; Z90.13 Acquired absence of bilateral breasts and nipples; Z96.651 Presence of right artificial knee joint; Z96.0 Presence of urogenital implants; Z96.82 Presence of neurostimulator; Z79.4 Long term (current) use of insulin
CPT/HCPCS: 99212; G0463

== ENCOUNTER 2023-10-18 23:19 | Emergency (ER) | payer MEDICARE, MEDICAID, SELFPAY ==
--- NOTE | ~2023-10-18 | XR_ITS ---
EXAMINATION: XR chest 2V Exam Date/Time: 10/18/2023 23:50 CDT HISTORY: shortness of breath RECENT PNEUMONIA Comparison: 09/24/2023. RESULT: Lines, tubes, and devices: Cholecystectomy clips. Epidural electrode over the midthoracic spine. Lungs and pleura: Lingular atelectasis/scar, otherwise clear. Cardiomediastinal silhouette: Stable. Other: No acute osseous or upper abdominal finding. IMPRESSION: No acute cardiopulmonary process. Reviewed, dictated and finalized at location [facility].
[2023-10-18 23:26] VITALS: BP 162/78; PULSE 76; RESP 15; TEMP 36.8; O2SAT 100
[2023-10-18 23:29] VITALS: BP 162/78; PULSE 73; PULSE 75; RESP 20; TEMP 36.8; O2SAT 100
--- NOTE | 2023-10-18 23:32 | ECG_ITS ---
Test Date: 2023-10-18 23:32:06 Measurements Intervals [place] Rate: 77 P: 35 SC: 139 QRS: 1 QRSD: 90 T: 48 QT: 394 QTc: 448 Interpretive Statements SINUS RHYTHM NONSPECIFIC T-WAVE ABNORMALITY Compared to ECG 09/24/2023 21:18:28 NO SIGNIFICANT CHANGES Electronically Signed On 10-19-2023 13:34:01 CDT by Ricky Laboy M.D.
[2023-10-18 23:41] LABS: Basophils Percent Auto 0.2 % (0.2-1.2); Eosinophils Absolute Auto 0.3 K/mm3 (0-0.3); Eosinophils Percent Auto 2.5 % (0-4.4); Hematocrit 41.1 % (37.0-47.0); Hemoglobin 13.1 g/dL (12.0-15.0); Immature Granulocyte Absolute 0.03 K/mm3 (0.00-0.031); Immature Granulocyte Percent A 0.2 % (0-0.5); Lymphocytes Percent Auto 29.4 % (18.3-44.2); Mean Corpuscular HGB Conc 31.9 g/dl (32-36); Mean Corpuscular Hemoglobin 28.7 pg (26-34); Mean Corpuscular Volume 90.1 fl (80-100); Mean Platelet Volume 9.6 fl (7.4-10.4); Monocytes Absolute Auto 1.1 K/mm3 (0.1-0.6); Monocytes Percent Auto 8.7 % (2.6-8.5); Neutrophils Absolute Auto 7.2 K/mm3 (1.3-6.7); Platelet Count Result 264 k/mm3 (150-375); Red Blood Count 4.56 M/mm3 (4.2-5.4); Red Cell Distribution Width 13.7 % (11.5-14.5); White Blood Count 12.3 K/mm3 (4.5-10.0)
[2023-10-19 00:06] LABS: Alanine Aminotransferase 22 U/L (6-35); Albumin Level 4.4 g/dL (3.5-5.1); Alkaline Phosphatase 64 U/L (38-126); Anion Gap 6 mmol/L (4-12); Aspartate Amino Transferase 38 U/L (14-36); Blood Urea Nitrogen 22 mg/dL (7-17); Calcium 9.5 mg/dL (8.4-10.2); Carbon Dioxide 29 mmol/L (22-30); Chloride 102 mmol/L (98-107); Estimated CRCL calculation 72 ml/min; Estimated Glomerular Filt Rate > 60; Glucose 125 mg/dL (65-110); Potassium 4.8 mmol/L (3.4-5.0); Sodium 137 mmol/L (137-145)
[2023-10-19 00:25] LABS: NT Pro B Type Natriuretic Pept 71 pg/mL (19.9-100)
[2023-10-19 00:34] LABS: Troponin I < 0.012 ng/mL (0.000-0.034)
--- NOTE | 2023-10-19 01:18 | ED.SOB ---
HPI - SOB/Dyspnea General Chief Complaint: Shortness of Breath/Dyspnea Stated Complaint: dyspnea Time Seen by Provider: 10/18/23 23:45 Source: patient and old records reviewed Mode of arrival: ambulatory Limitations: no limitations History of Present Illness HPI Narrative: Patient is a 68-year-old female, with pmh of chf, dm, PE on Xarelto, who presents the ED with report of shortness of breath. Patient is well-known to our facility and myself. She reports she was diagnosed with mild walking pneumonia at an outside hospital on 10/12. She was admitted overnight for IV antibiotics, discharged on Augmentin. She states she has since finished the antibiotics and had been feeling better, however woke up today feeling slightly fatigued and unwell. She then developed increased shortness breath when she was going to bed tonight and prompted here for further evaluation. States she is concerned she may need more antibiotics. States she just wanted to be evaluated have a repeat chest x-ray to make sure she was healing appropriately. Reports intermittent cough, intermittent chest pain, denies chest pain today. Denies fevers. Related Data Home Medications Medication Instructions Recorded Confirmed exemestane 25 mg tablet 25 mg PO HS 01/06/20 10/07/23 insulin glargine 100 unit/mL (3 32 unit subcut QAM 01/06/20 10/07/23 mL) subcutaneous pen (Lantus Solostar U-100 Insulin) ropinirole 5 mg tablet 5 mg PO HS 01/06/20 10/07/23 insulin lispro 100 unit/mL 28 unit subcut TID 03/19/22 10/07/23 subcutaneous pen (Humalog KwikPen (U-100) Insulin) methenamine hippurate 1 gram tablet 1 g PO BID 07/19/22 10/07/23 oxybutynin chloride 15 mg 15 mg PO DAILY 11/06/22 10/07/23 tablet,extended release 24 hr gabapentin 300 mg capsule 300 mg PO TID 06/25/23 10/07/23 Allergies Allergy/AdvReac Type Severity Reaction Status Date / Time ceftriaxone Allergy Severe SOB Verified 10/18/23 23:28 cephalexin Allergy Severe Difficulty Verified 10/18/23 23:28 Breathing Cephalosporins Allergy Severe Difficulty Verified 10/18/23 23:28 Breathing lorazepam Allergy Severe Swelling Verified 10/18/23 23:28 metoclopramide Allergy Intermediate Other Verified 10/18/23 23:28 chlorhexidine Allergy Mild BLISTERING Verified 10/18/23 23:28 levofloxacin Allergy Mild Hives / Verified 10/18/23 23:28 Red Face ketorolac Allergy Itching Verified 10/18/23 23:28 latex Allergy Rash Verified 10/18/23 23:28 nitrofurantoin Allergy Itching Verified 10/18/23 23:28 sulfamethoxazole Allergy Itching Verified 10/18/23 23:28 [From Sulfamethoxazole-Trimethoprim] trazodone Allergy Swelling Verified 10/18/23 23:28 of Lip/Tongue/Throat trimethoprim Allergy Itching Verified 10/18/23 23:28 [From Sulfamethoxazole-Trimethoprim] oxycodone AdvReac Mild Vomiting Verified 10/18/23 23:28 amlodipine AdvReac Swelling Verified 10/18/23 23:28 lisinopril AdvReac Swelling Verified 10/18/23 23:28 meropenem AdvReac Rash Verified 10/18/23 23:28 pregabalin AdvReac Swelling Verified 10/18/23 23:28 reslizumab AdvReac Unknown Verified 10/18/23 23:28 Review of Systems Review of Systems: CONSTITUTIONAL: Denies fever, chills, or sweats. ENT: Denies rhinorrhea, congestion, sore throat. CARDIOVASCULAR: See HPI RESPIRATORY: See HPI. All systems reviewed & are unremarkable except as noted in HPI and below PMFSH Past Medical History Medical History Anxiety Breast cancer Chronic anticoagulation Chronic back pain Collagenous colitis Congestive heart failure COVID-19 Deep venous thrombosis Depression Irritable bowel syndrome Kidney stone Morbid obesity Multiple thyroid nodules Obstructive sleep apnea on CPAP Overactive bladder Peripheral neuropathy Pulmonary embolism positive for coagulation workup Restless leg syndrome Type 2 diabetes mellitus Surgical History Surgical History
[2023-10-19 01:45] VITALS: BP 158/84; PULSE 65; RESP 15; O2SAT 100
== END 2023-10-19 01:45 | disposition home or self-care (01) ==
PROVIDERS: Emergency Medicine; Emergency Provider Physician Assistant; PCP Internal Medicine
DX: R06.81 Apnea, not elsewhere classified (principal); I50.9 Heart failure, unspecified; E11.42 Type 2 diabetes mellitus with diabetic polyneuropathy; E66.01 Morbid (severe) obesity due to excess calories; Z68.43 Body mass index [BMI] 50.0-59.9, adult; G25.81 Restless legs syndrome; N32.81 Overactive bladder; K58.9 Irritable bowel syndrome, unspecified; F41.9 Anxiety disorder, unspecified; F32.A Depression, unspecified; Z96.82 Presence of neurostimulator; Z86.711 Personal history of pulmonary embolism; Z86.718 Personal history of other venous thrombosis and embolism; Z85.3 Personal history of malignant neoplasm of breast; Z86.16 Personal history of COVID-19; Z87.442 Personal history of urinary calculi; Z79.01 Long term (current) use of anticoagulants; Z90.13 Acquired absence of bilateral breasts and nipples; Z90.49 Acquired absence of other specified parts of digestive tract; Z90.721 Acquired absence of ovaries, unilateral; Z96.651 Presence of right artificial knee joint; Z79.02 Long term (current) use of antithrombotics/antiplatelets; Z79.4 Long term (current) use of insulin; Z79.899 Other long term (current) drug therapy
CPT/HCPCS: 36415; 71046; 80053; 83880; 84484; 85025; 93005; 99284

== ENCOUNTER 2023-10-23 02:53 | Emergency (ER) | payer MEDICARE, MEDICAID, SELFPAY ==
--- NOTE | ~2023-10-23 | CT_ITS ---
Non-contrast Head CT History: Head injury COMPARISON: 1123 Technique: Axial non-contrast imaging of the brain was performed. Dose reduction technique was used on this scan by utilizing automated exposure control and iterative reconstruction technique. The dose -length product (DLP) was 605.33 mGy-cm. Findings: There is no evidence of intracranial hemorrhage, mass lesion, or acute infarct. Brain par enchyma appears normal. The ventricles and subarachnoid spaces are normal in size. The calvarium ap pears normal. The visualized paranasal sinuses and mastoid air cells are clear. Impression: No significant abnormality seen. Reviewed, dictated and finalized at location . Impression: No significant abnormality seen.
[2023-10-23 02:59] VITALS: BP 159/93; PULSE 69; RESP 17; TEMP 36.8; O2SAT 100
--- NOTE | 2023-10-23 03:06 | ED.GENADULT ---
HPI - General Adult General Chief complaint: Head Injury Stated complaint: HEAD INJURY ON BLOOD THINNERS Time Seen by Provider: 10/23/23 02:57 History of Present Illness HPI narrative: He is a 68-year-old female who presents emergency department chief complaint of head injury. Patient reports that she was standing up and struck her head against a shelf. The patient reports no loss of conscious for reports he has been having headache afterwards. The patient reports no laceration no bleeding reports that she is on anticoagulant and called her doctor's nurse line who recommended that she come to the emergency department as there was a risk for bleeding due to being on anticoagulants. Related Data Home Medications Medication Instructions Recorded Confirmed exemestane 25 mg tablet 25 mg PO HS 01/06/20 10/07/23 insulin glargine 100 unit/mL (3 32 unit subcut QAM 01/06/20 10/07/23 mL) subcutaneous pen (Lantus Solostar U-100 Insulin) ropinirole 5 mg tablet 5 mg PO HS 01/06/20 10/07/23 insulin lispro 100 unit/mL 28 unit subcut TID 03/19/22 10/07/23 subcutaneous pen (Humalog KwikPen (U-100) Insulin) methenamine hippurate 1 gram tablet 1 g PO BID 07/19/22 10/07/23 oxybutynin chloride 15 mg 15 mg PO DAILY 11/06/22 10/07/23 tablet,extended release 24 hr gabapentin 300 mg capsule 300 mg PO TID 06/25/23 10/07/23 Allergies Allergy/AdvReac Type Severity Reaction Status Date / Time ceftriaxone Allergy Severe SOB Verified 10/23/23 03:02 cephalexin Allergy Severe Difficulty Verified 10/23/23 03:02 Breathing Cephalosporins Allergy Severe Difficulty Verified 10/23/23 03:02 Breathing lorazepam Allergy Severe Swelling Verified 10/23/23 03:02 metoclopramide Allergy Intermediate Other Verified 10/23/23 03:02 chlorhexidine Allergy Mild BLISTERING Verified 10/23/23 03:02 levofloxacin Allergy Mild Hives / Verified 10/23/23 03:02 Red Face ketorolac Allergy Itching Verified 10/23/23 03:02 latex Allergy Rash Verified 10/23/23 03:02 nitrofurantoin Allergy Itching Verified 10/23/23 03:02 sulfamethoxazole Allergy Itching Verified 10/23/23 03:02 [From Sulfamethoxazole-Trimethoprim] trazodone Allergy Swelling Verified 10/23/23 03:02 of Lip/Tongue/Throat trimethoprim Allergy Itching Verified 10/23/23 03:02 [From Sulfamethoxazole-Trimethoprim] oxycodone AdvReac Mild Vomiting Verified 10/23/23 03:02 amlodipine AdvReac Swelling Verified 10/23/23 03:02 lisinopril AdvReac Swelling Verified 10/23/23 03:02 meropenem AdvReac Rash Verified 10/23/23 03:02 pregabalin AdvReac Swelling Verified 10/23/23 03:02 reslizumab AdvReac Unknown Verified 10/23/23 03:02 Review of Systems Review of Systems: A 10 system review of systems was completed on the patient and is negative except for what is stated in the HPI. Nursing and ancillary documentation was reviewed. [facility] Past Medical History Medical History Anxiety Breast cancer Chronic anticoagulation Chronic back pain Collagenous colitis Congestive heart failure COVID-19 Deep venous thrombosis Depression Irritable bowel syndrome Kidney stone Morbid obesity Multiple thyroid nodules Obstructive sleep apnea on CPAP Overactive bladder Peripheral neuropathy Pulmonary embolism positive for coagulation workup Restless leg syndrome Type 2 diabetes mellitus Surgical History Surgical History History of bilateral mastectomy History of cardiac catheterization Reportedly negative for coronary artery disease. History of cholecystectomy History of colonoscopy History of cystoscopy History of esophagogastroduodenoscopy (EGD) History of right oophorectomy History of total right knee replacement History of umbilical hernia repair History of ureter stent Status post insertion of spinal cord stimulator Family History Famil
[2023-10-23 04:33] LABS: Glucose Point of Care 145 mg/dl (65-105)
[2023-10-23 05:11] VITALS: BP 136/68; PULSE 76; RESP 17; O2SAT 100
== END 2023-10-23 05:13 | disposition home or self-care (01) ==
PROVIDERS: Emergency Provider Emergency Medicine; PCP Internal Medicine
DX: S09.90XA Unspecified injury of head, initial encounter (principal); I50.9 Heart failure, unspecified; E11.9 Type 2 diabetes mellitus without complications; Z87.891 Personal history of nicotine dependence; Z79.01 Long term (current) use of anticoagulants; Z79.899 Other long term (current) drug therapy; Z79.4 Long term (current) use of insulin; W22.09XA Striking against other stationary object, initial encounter
CPT/HCPCS: 70450; 82948; 99284

== ENCOUNTER 2023-11-02 19:16 | Emergency (ER) | payer MEDICARE, MEDICAID, SELFPAY ==
--- NOTE | 2023-11-02 19:18 | ED.BACK ---
HPI - Back Pain/Injury General Chief Complaint: Back Pain/Injury Stated Complaint: Back Pain Time Seen by Provider: 11/02/23 19:17 Source: patient Mode of arrival: ambulatory Limitations: no limitations History of Present Illness HPI Narrative: Karly is a 68-year-old female patient presenting to the clinic today with complaints of right upper back pain for the past few days that is gradually getting worse. She reports no known injury. States that it is a tingling and burning sensation near the right scapula. Related Data Home Medications Medication Instructions Recorded Confirmed exemestane 25 mg tablet 25 mg PO HS 01/06/20 11/02/23 insulin glargine 100 unit/mL (3 32 unit subcut QAM 01/06/20 11/02/23 mL) subcutaneous pen (Lantus Solostar U-100 Insulin) ropinirole 5 mg tablet 5 mg PO HS 01/06/20 11/02/23 insulin lispro 100 unit/mL 28 unit subcut TID 03/19/22 11/02/23 subcutaneous pen (Humalog KwikPen (U-100) Insulin) methenamine hippurate 1 gram tablet 1 g PO BID 07/19/22 11/02/23 oxybutynin chloride 15 mg 15 mg PO DAILY 11/06/22 11/02/23 tablet,extended release 24 hr gabapentin 300 mg capsule 300 mg PO TID 06/25/23 11/02/23 Allergies Allergy/AdvReac Type Severity Reaction Status Date / Time ceftriaxone Allergy Severe SOB Verified 11/02/23 19:23 cephalexin Allergy Severe Difficulty Verified 11/02/23 19:23 Breathing Cephalosporins Allergy Severe Difficulty Verified 11/02/23 19:23 Breathing lorazepam Allergy Severe Swelling Verified 11/02/23 19:23 metoclopramide Allergy Intermediate Other Verified 11/02/23 19:23 chlorhexidine Allergy Mild BLISTERING Verified 11/02/23 19:23 levofloxacin Allergy Mild Hives / Verified 11/02/23 19:23 Red Face ketorolac Allergy Itching Verified 11/02/23 19:23 latex Allergy Rash Verified 11/02/23 19:23 nitrofurantoin Allergy Itching Verified 11/02/23 19:23 sulfamethoxazole Allergy Itching Verified 11/02/23 19:23 [From Sulfamethoxazole-Trimethoprim] trazodone Allergy Swelling Verified 11/02/23 19:23 of Lip/Tongue/Throat trimethoprim Allergy Itching Verified 11/02/23 19:23 [From Sulfamethoxazole-Trimethoprim] oxycodone AdvReac Mild Vomiting Verified 11/02/23 19:23 amlodipine AdvReac Swelling Verified 11/02/23 19:23 lisinopril AdvReac Swelling Verified 11/02/23 19:23 meropenem AdvReac Rash Verified 11/02/23 19:23 pregabalin AdvReac Swelling Verified 11/02/23 19:23 reslizumab AdvReac Unknown Verified 11/02/23 19:23 Review of Systems Review of Systems: Pertinent positives per HPI. Patient denies any fever, chills, rash, headache, visual changes, dizziness, cough, runny nose, sore throat, shortness of breath, chest pain, palpitations, nausea, vomiting, diarrhea, constipation, abdominal pain, or any urinary issues. PMFSH Past Medical History Medical History Anxiety Breast cancer Chronic anticoagulation Chronic back pain Collagenous colitis Congestive heart failure COVID-19 Deep venous thrombosis Depression Irritable bowel syndrome Kidney stone Morbid obesity Multiple thyroid nodules Obstructive sleep apnea on CPAP Overactive bladder Peripheral neuropathy Pulmonary embolism positive for coagulation workup Restless leg syndrome Type 2 diabetes mellitus Surgical History Surgical History History of bilateral mastectomy History of cardiac catheterization Reportedly negative for coronary artery disease. History of cholecystectomy History of colonoscopy History of cystoscopy History of esophagogastroduodenoscopy (EGD) History of right oophorectomy History of total right knee replacement History of umbilical hernia repair History of ureter stent Status post insertion of spinal cord stimulator Family History Family History Mother Pratibha
[2023-11-02 19:27] VITALS: BP 150/87; PULSE 70; RESP 16; TEMP 36.4; O2SAT 100
== END 2023-11-02 19:37 | disposition home or self-care (01) ==
PROVIDERS: Emergency Provider Nurse Practitioner Family; PCP Internal Medicine
DX: M54.6 Pain in thoracic spine (principal); Z87.891 Personal history of nicotine dependence; E66.01 Morbid (severe) obesity due to excess calories; Z68.43 Body mass index [BMI] 50.0-59.9, adult; G47.33 Obstructive sleep apnea (adult) (pediatric); E11.42 Type 2 diabetes mellitus with diabetic polyneuropathy; Z79.4 Long term (current) use of insulin; G25.81 Restless legs syndrome; Z86.711 Personal history of pulmonary embolism; Z85.3 Personal history of malignant neoplasm of breast; Z90.13 Acquired absence of bilateral breasts and nipples; Z96.651 Presence of right artificial knee joint; Z96.82 Presence of neurostimulator
CPT/HCPCS: 99212; G0463

== ENCOUNTER 2023-11-16 10:33 | Emergency (ER) | payer MEDICARE, MEDICAID, SELFPAY ==
--- NOTE | ~2023-11-16 | XR_ITS ---
XR hand RT min 3V 11/16/2023 11:11 Indication: Right hand pain and bruising Procedure: 3 views right hand Comparison: No prior studies for comparison. Findings: There is polyarticular osteoarthritis. No fracture, subluxation or dislocation. No signific ant soft tissue abnormality. No foreign bodies Impression: 1: Polyarticular osteoarthritis of the right hand. Reviewed, dictated and finalized at location B. Impression: 1: Polyarticular osteoarthritis of the right hand.
[2023-11-16 10:46] VITALS: BP 174/94; PULSE 79; RESP 16; TEMP 36.6; O2SAT 99
--- NOTE | 2023-11-16 11:01 | ED.EXTPRO ---
HPI - Extremity Problem General Chief complaint: Extremity Problem,Nontraumatic Stated complaint: Swollen Right Hand Time Seen by Provider: 11/16/23 10:53 Source: patient and RN notes reviewed Mode of arrival: ambulatory Limitations: no limitations History of Present Illness HPI Narrative: Patient presents today complaining of swelling and bruising to the dorsum of her right hand. Patient noticed this last night before going to bed, but denies any known injury or trauma to the area. Patient is on Xarelto. Reports some mild tingling to the 2nd and 3rd fingers. Related Data Home Medications Medication Instructions Recorded Confirmed exemestane 25 mg tablet 25 mg PO HS 01/06/20 11/16/23 insulin glargine 100 unit/mL (3 32 unit subcut QAM 01/06/20 11/16/23 mL) subcutaneous pen (Lantus Solostar U-100 Insulin) ropinirole 5 mg tablet 5 mg PO HS 01/06/20 11/16/23 insulin lispro 100 unit/mL 28 unit subcut TID 03/19/22 11/16/23 subcutaneous pen (Humalog KwikPen (U-100) Insulin) methenamine hippurate 1 gram tablet 1 g PO BID 07/19/22 11/16/23 oxybutynin chloride 15 mg 15 mg PO DAILY 11/06/22 11/16/23 tablet,extended release 24 hr gabapentin 300 mg capsule 300 mg PO TID 06/25/23 11/16/23 Allergies Allergy/AdvReac Type Severity Reaction Status Date / Time ceftriaxone Allergy Severe SOB Verified 11/16/23 10:44 cephalexin Allergy Severe Difficulty Verified 11/16/23 10:44 Breathing Cephalosporins Allergy Severe Difficulty Verified 11/16/23 10:44 Breathing lorazepam Allergy Severe Swelling Verified 11/16/23 10:44 metoclopramide Allergy Intermediate Other Verified 11/16/23 10:44 chlorhexidine Allergy Mild BLISTERING Verified 11/16/23 10:44 levofloxacin Allergy Mild Hives / Verified 11/16/23 10:44 Red Face ketorolac Allergy Itching Verified 11/16/23 10:44 latex Allergy Rash Verified 11/16/23 10:44 nitrofurantoin Allergy Itching Verified 11/16/23 10:44 sulfamethoxazole Allergy Itching Verified 11/16/23 10:44 [From Sulfamethoxazole-Trimethoprim] trazodone Allergy Swelling Verified 11/16/23 10:44 of Lip/Tongue/Throat trimethoprim Allergy Itching Verified 11/16/23 10:44 [From Sulfamethoxazole-Trimethoprim] oxycodone AdvReac Mild Vomiting Verified 11/16/23 10:44 amlodipine AdvReac Swelling Verified 11/16/23 10:44 lisinopril AdvReac Swelling Verified 11/16/23 10:44 meropenem AdvReac Rash Verified 11/16/23 10:44 pregabalin AdvReac Swelling Verified 11/16/23 10:44 reslizumab AdvReac Unknown Verified 11/16/23 10:44 Review of Systems Review of Systems: CONSTITUTIONAL: Denies body aches, fever, chills, or sweats. EYES: Denies visual changes, redness, or discharge. ENT: Denies rhinorrhea, congestion, sore throat, or otalgia. CARDIOVASCULAR: Denies chest pain, palpitations, or edema. RESPIRATORY: Denies cough or dyspnea. GASTROINTESTINAL: Denies abdominal pain, nausea, vomiting, or diarrhea. GENITOURINARY: Denies dysuria or hematuria. SKIN: Denies rash, itching, or wounds. MUSCULOSKELETAL: + bruising and swelling to the right NEUROLOGIC: Denies headache, numbness, tingling, or weakness. PSYCH: Denies depression or anxiety. [facility] Past Medical History Medical History Anxiety Breast cancer Chronic anticoagulation Chronic back pain Collagenous colitis Congestive heart failure COVID-19 Deep venous thrombosis Depression Irritable bowel syndrome Kidney stone Morbid obesity Multiple thyroid nodules Obstructive sleep apnea on CPAP Overactive bladder Peripheral neuropathy Pulmonary embolism positive for coagulation workup Restless leg syndrome Type 2 diabetes mellitus Surgical History Surgical History History of bilateral mastectomy History of cardiac catheterization Reportedly negative for coronary artery disease. History of cholecystectomy
== END 2023-11-16 11:36 | disposition home or self-care (01) ==
PROVIDERS: Emergency Provider Nurse Practitioner; PCP Internal Medicine
DX: S60.221A Contusion of right hand, initial encounter (principal); X58.XXXA Exposure to other specified factors, initial encounter; E11.42 Type 2 diabetes mellitus with diabetic polyneuropathy; Z79.4 Long term (current) use of insulin; E66.01 Morbid (severe) obesity due to excess calories; Z68.42 Body mass index [BMI] 45.0-49.9, adult; G47.33 Obstructive sleep apnea (adult) (pediatric); N32.81 Overactive bladder; G25.81 Restless legs syndrome; I50.9 Heart failure, unspecified; Z85.3 Personal history of malignant neoplasm of breast; Z86.718 Personal history of other venous thrombosis and embolism; Z86.711 Personal history of pulmonary embolism; Z79.01 Long term (current) use of anticoagulants; Z86.16 Personal history of COVID-19; Z90.13 Acquired absence of bilateral breasts and nipples; Z96.651 Presence of right artificial knee joint; Z96.0 Presence of urogenital implants; Z96.82 Presence of neurostimulator; Z87.891 Personal history of nicotine dependence
CPT/HCPCS: 73130; 99213; G0463

== ENCOUNTER 2023-11-17 11:33 | Emergency (ER) | payer MEDICARE, MEDICAID, SELFPAY ==
--- NOTE | 2023-11-17 11:40 | ED.GENADULT ---
HPI - General Adult General Chief complaint: Extremity Injury, Upper Stated complaint: Right Hand Pain Time Seen by Provider: 11/17/23 11:41 History of Present Illness HPI narrative: Patient presents with complaints of hematoma to right dorsal hand. She was seen and treated for same complaint yesterday, x-ray with osteo arthritis is noted. She denies any injury or trauma. She reports that she feels as though the bruising to the right hand is worse today than it was yesterday. She states that she called her primary care provider and they told her to come back here to be re-evaluated. States that she has been taking hydrocodone for pain, icing and elevating the affected hand. She retains full range of motion, neurovascular status intact Related Data Home Medications Medication Instructions Recorded Confirmed exemestane 25 mg tablet 25 mg PO HS 01/06/20 11/17/23 insulin glargine 100 unit/mL (3 32 unit subcut QAM 01/06/20 11/17/23 mL) subcutaneous pen (Lantus Solostar U-100 Insulin) ropinirole 5 mg tablet 5 mg PO HS 01/06/20 11/17/23 insulin lispro 100 unit/mL 28 unit subcut TID 03/19/22 11/17/23 subcutaneous pen (Humalog KwikPen (U-100) Insulin) methenamine hippurate 1 gram tablet 1 g PO BID 07/19/22 11/17/23 oxybutynin chloride 15 mg 15 mg PO DAILY 11/06/22 11/17/23 tablet,extended release 24 hr gabapentin 300 mg capsule 300 mg PO TID 06/25/23 11/17/23 Allergies Allergy/AdvReac Type Severity Reaction Status Date / Time ceftriaxone Allergy Severe SOB Verified 11/17/23 11:41 cephalexin Allergy Severe Difficulty Verified 11/17/23 11:41 Breathing Cephalosporins Allergy Severe Difficulty Verified 11/17/23 11:41 Breathing lorazepam Allergy Severe Swelling Verified 11/17/23 11:41 metoclopramide Allergy Intermediate Other Verified 11/17/23 11:41 chlorhexidine Allergy Mild BLISTERING Verified 11/17/23 11:41 levofloxacin Allergy Mild Hives / Verified 11/17/23 11:41 Red Face ketorolac Allergy Itching Verified 11/17/23 11:41 latex Allergy Rash Verified 11/17/23 11:41 nitrofurantoin Allergy Itching Verified 11/17/23 11:41 sulfamethoxazole Allergy Itching Verified 11/17/23 11:41 [From Sulfamethoxazole-Trimethoprim] trazodone Allergy Swelling Verified 11/17/23 11:41 of Lip/Tongue/Throat trimethoprim Allergy Itching Verified 11/17/23 11:41 [From Sulfamethoxazole-Trimethoprim] oxycodone AdvReac Mild Vomiting Verified 11/17/23 11:41 amlodipine AdvReac Swelling Verified 11/17/23 11:41 lisinopril AdvReac Swelling Verified 11/17/23 11:41 meropenem AdvReac Rash Verified 11/17/23 11:41 pregabalin AdvReac Swelling Verified 11/17/23 11:41 reslizumab AdvReac Unknown Verified 11/17/23 11:41 Review of Systems Review of Systems: All systems reviewed & are unremarkable except as noted in HPI and below Constitutional: Constitutional: Reports no additional constitutional complaints ENT: Reports system reviewed and no additional complaints, except as documented Cardiovascular: Cardiovascular: Reports no additional cardiovascular complaints Respiratory: Respiratory: Reports no additional respiratory complaints Gastrointestinal: Gastrointestinal: Reports no additional gastrointestinal complaints Musculoskeletal: Musculoskeletal: Reports as per HPI Integumentary/Breasts: Skin/Breast: Reports as per HPI PMFSH Past Medical History Medical History Anxiety Breast cancer Chronic anticoagulation Chronic back pain Collagenous colitis Congestive heart failure COVID-19 Deep venous thrombosis Depression Irritable bowel syndrome Kidney stone Morbid obesity Multiple thyroid nodules Obstructive sleep apnea on CPAP Overactive bladder Peripheral neuropathy Pulmonary embolism positive for coagulation workup Restless leg syndrome Type 2 diabetes mellitus Surgical History Surgical History (Reviewed 11/17/23 @ 11:41 by Nicholas
[2023-11-17 11:44] VITALS: BP 132/77; PULSE 80; RESP 16; TEMP 36.5; O2SAT 99
== END 2023-11-17 12:06 | disposition home or self-care (01) ==
PROVIDERS: Emergency Provider Nurse Practitioner Family; PCP Internal Medicine
DX: S60.221D Contusion of right hand, subsequent encounter (principal); X58.XXXD Exposure to other specified factors, subsequent encounter; Z87.891 Personal history of nicotine dependence; I50.9 Heart failure, unspecified; Z86.718 Personal history of other venous thrombosis and embolism; E66.01 Morbid (severe) obesity due to excess calories; Z68.42 Body mass index [BMI] 45.0-49.9, adult; G25.81 Restless legs syndrome; Z85.3 Personal history of malignant neoplasm of breast; E11.42 Type 2 diabetes mellitus with diabetic polyneuropathy; Z79.4 Long term (current) use of insulin; Z90.13 Acquired absence of bilateral breasts and nipples
CPT/HCPCS: 99212; G0463

== ENCOUNTER 2023-11-20 22:11 | Emergency (ER) | payer MEDICARE, MEDICAID, SELFPAY ==
--- NOTE | ~2023-11-20 | XR_ITS ---
EXAMINATION: XR wrist RT min 3V DATE: 11/20/2023 22:27 INDICATION: Right hand and wrist pain and swelling TECHNIQUE: Posteroanterior, ulnar deviation, oblique, and lateral views of the right wrist were obtai cyndi. COMPARISON: 11/16/2023 FINDINGS: Bone alignment is normal. No fracture. Mild polyarticular osteoarthritis at the first carpometacarpal , first metacarpophalangeal and at the visualized interphalangeal joints. Soft tissues are unremarkab le. IMPRESSION: 1. Mild polyarticular osteoarthritis at the right hand. No acute osseous abnormality. Reviewed, dictated and finalized at location A. IMPRESSION: 1. Mild polyarticular osteoarthritis at the right hand. No acute osseous abnorm ality.
--- NOTE | ~2023-11-20 | XR_ITS ---
Right Hand Technique: PA, oblique, and lateral views were obtained. Clinical History: Pain COMPARISON: 11/20/2023 Findings: No acute fracture or dislocation is seen. Osseous alignment is anatomic. Joint spaces are p reserved. Soft tissues are unremarkable. Impression: Unremarkable right hand. Reviewed, dictated and finalized at location . Impression: Unremarkable right hand.
[2023-11-20 22:17] VITALS: BP 143/79; PULSE 80; RESP 15; O2SAT 99
--- NOTE | 2023-11-21 00:32 | ED.UPPEXIN ---
HPI - Extremity Injury (Upper) General Chief Complaint: Extremity Injury, Upper Stated Complaint: pain, swelling to R hand Time Seen by Provider: 11/21/23 00:20 History of Present Illness HPI narrative: 68-year-old female with a history of chronic anticoagulation on Xarelto due to prior PE, type 2 diabetes, hypothyroidism, morbid obesity, breast cancer in remission presents to the emergency department for right hand pain for approximately 1 week. Patient is well-known to our emergency department. States approximately 1 week ago she noticed pain and bruising to her right hand. She denies an injury trauma but does state that prior to noticing the pain and bruising she was working on a dock box and is concerned she may have hit her hand unknowingly. 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 She was diagnosed with a hematoma. She then again presented to urgent care on 11/16 for the same, had an Shahid wrap applied and was discharged home. She presents today again for swelling and pain to her right hand. She states the swelling has significantly improved, however her hand feels very tight which prompted her to come to the ED. 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 She has not been taking anything for pain. Related Data Home Medications Medication Instructions Recorded Confirmed exemestane 25 mg tablet 25 mg PO HS 01/06/20 11/17/23 insulin glargine 100 unit/mL (3 32 unit subcut QAM 01/06/20 11/17/23 mL) subcutaneous pen (Lantus Solostar U-100 Insulin) ropinirole 5 mg tablet 5 mg PO HS 01/06/20 11/17/23 insulin lispro 100 unit/mL 28 unit subcut TID 03/19/22 11/17/23 subcutaneous pen (Humalog KwikPen (U-100) Insulin) methenamine hippurate 1 gram tablet 1 g PO BID 07/19/22 11/17/23 oxybutynin chloride 15 mg 15 mg PO DAILY 11/06/22 11/17/23 tablet,extended release 24 hr gabapentin 300 mg capsule 300 mg PO TID 06/25/23 11/17/23 Allergies Allergy/AdvReac Type Severity Reaction Status Date / Time ceftriaxone Allergy Severe SOB Verified 11/21/23 00:10 cephalexin Allergy Severe Difficulty Verified 11/21/23 00:10 Breathing Cephalosporins Allergy Severe Difficulty Verified 11/21/23 00:10 Breathing lorazepam Allergy Severe Swelling Verified 11/21/23 00:10 metoclopramide Allergy Intermediate Other Verified 11/21/23 00:10 chlorhexidine Allergy Mild BLISTERING Verified 11/21/23 00:10 levofloxacin Allergy Mild Hives / Verified 11/21/23 00:10 Red Face ketorolac Allergy Itching Verified 11/21/23 00:10 latex Allergy Rash Verified 11/21/23 00:10 nitrofurantoin Allergy Itching Verified 11/21/23 00:10 sulfamethoxazole Allergy Itching Verified 11/21/23 00:10 [From Sulfamethoxazole-Trimethoprim] trazodone Allergy Swelling Verified 11/21/23 00:10 of Lip/Tongue/Throat trimethoprim Allergy Itching Verified 11/21/23 00:10 [From Sulfamethoxazole-Trimethoprim] oxycodone AdvReac Mild Vomiting Verified 11/21/23 00:10 amlodipine AdvReac Swelling Verified 11/21/23 00:10 lisinopril AdvReac Swelling Verified 11/21/23 00:10 meropenem AdvReac Rash Verified 11/21/23 00:10 pregabalin AdvReac Swelling Verified 11/21/23 00:10 reslizumab AdvReac Unknown Verified 11/21/23 00:10 Review of Systems Review of Systems: All systems reviewed & are unremarkable except as noted in HPI and below PMFSH Past Medical History Medical History Anxiety Breast cancer Chronic anticoagulation Chronic back pain Collagenous colitis Congestive heart failure COVID-19 Deep venous thrombosis Depression Irritable bowel syndrome Kidney stone Morbid obesity Multiple thyroid nodules Obstructive sleep apnea on CPAP Overactive bladder Peripheral neuropathy Pulmonary embolism positive for coagulation workup Restless leg syndrome Type 2 diabetes mellitus
[2023-11-21] MEDS: ACETAMINOPHEN 500 MG TABLET 1000 MG PO (00:47)
[2023-11-21 00:48] VITALS: TEMP 36.7
[2023-11-21 02:01] VITALS: BP 150/76; PULSE 78; RESP 16; O2SAT 97
== END 2023-11-21 02:04 | disposition home or self-care (01) ==
PROVIDERS: Emergency Provider Physician Assistant; PCP Internal Medicine
DX: S60.221A Contusion of right hand, initial encounter (principal); M25.531 Pain in right wrist; F41.9 Anxiety disorder, unspecified; Z85.3 Personal history of malignant neoplasm of breast; Z79.01 Long term (current) use of anticoagulants; I50.9 Heart failure, unspecified; Z86.718 Personal history of other venous thrombosis and embolism; F32.A Depression, unspecified; Z87.442 Personal history of urinary calculi; G47.30 Sleep apnea, unspecified; E11.9 Type 2 diabetes mellitus without complications; Z79.4 Long term (current) use of insulin; X58.XXXA Exposure to other specified factors, initial encounter
CPT/HCPCS: 73110; 73130; 99283; A9270

== ENCOUNTER 2023-11-28 17:26 | Emergency (ER) | payer MEDICARE, MEDICAID, SELFPAY ==
--- NOTE | ~2023-11-28 | XR_ITS ---
EXAMINATION: XR chest 2V Exam Date/Time: 11/28/2023 18:00 CDT HISTORY: shortness of breath/weak Comparison: 10/18/2023. RESULT: Lines, tubes, and devices: Cholecystomy clips. Epidural electrode over the midthoracic spine. Lungs and pleura: Clear. Cardiomediastinal silhouette: Stable. Other: No acute osseous or upper abdominal finding. IMPRESSION: No acute cardiopulmonary process. Reviewed, dictated and finalized at location K.
--- NOTE | 2023-11-28 17:29 | ED.URI ---
HPI - URI/Sore Throat General Chief Complaint: Upper Respiratory Infection Stated Complaint: check for flu/covid Time Seen by Provider: 11/28/23 17:45 Source: patient Mode of arrival: ambulatory Limitations: no limitations History of Present Illness HPI Narrative: Karly is a 68-year-old female patient presenting to the clinic today with complaints of weakness, shortness of breath, nasal congestion, and body aches. States she had a slight sore throat yesterday however that has resolved. Denies any known fever or chills. Denies any chest pain associated. Also reporting some your incontinence which is not normal for the patient. MD elicited complaint: nasal congestion and other (Shortness of breath, nasal congestion, body aches, weakness) Related Data Home Medications Medication Instructions Recorded Confirmed exemestane 25 mg tablet 25 mg PO HS 01/06/20 11/17/23 insulin glargine 100 unit/mL (3 32 unit subcut QAM 01/06/20 11/17/23 mL) subcutaneous pen (Lantus Solostar U-100 Insulin) ropinirole 5 mg tablet 5 mg PO HS 01/06/20 11/17/23 insulin lispro 100 unit/mL 28 unit subcut TID 03/19/22 11/17/23 subcutaneous pen (Humalog KwikPen (U-100) Insulin) methenamine hippurate 1 gram tablet 1 g PO BID 07/19/22 11/17/23 oxybutynin chloride 15 mg 15 mg PO DAILY 11/06/22 11/17/23 tablet,extended release 24 hr gabapentin 300 mg capsule 300 mg PO TID 06/25/23 11/17/23 Allergies Allergy/AdvReac Type Severity Reaction Status Date / Time ceftriaxone Allergy Severe SOB Verified 11/21/23 00:10 cephalexin Allergy Severe Difficulty Verified 11/21/23 00:10 Breathing Cephalosporins Allergy Severe Difficulty Verified 11/21/23 00:10 Breathing lorazepam Allergy Severe Swelling Verified 11/21/23 00:10 metoclopramide Allergy Intermediate Other Verified 11/21/23 00:10 chlorhexidine Allergy Mild BLISTERING Verified 11/21/23 00:10 levofloxacin Allergy Mild Hives / Verified 11/21/23 00:10 Red Face ketorolac Allergy Itching Verified 11/21/23 00:10 latex Allergy Rash Verified 11/21/23 00:10 nitrofurantoin Allergy Itching Verified 11/21/23 00:10 sulfamethoxazole Allergy Itching Verified 11/21/23 00:10 [From Sulfamethoxazole-Trimethoprim] trazodone Allergy Swelling Verified 11/21/23 00:10 of Lip/Tongue/Throat trimethoprim Allergy Itching Verified 11/21/23 00:10 [From Sulfamethoxazole-Trimethoprim] oxycodone AdvReac Mild Vomiting Verified 11/21/23 00:10 amlodipine AdvReac Swelling Verified 11/21/23 00:10 lisinopril AdvReac Swelling Verified 11/21/23 00:10 meropenem AdvReac Rash Verified 11/21/23 00:10 pregabalin AdvReac Swelling Verified 11/21/23 00:10 reslizumab AdvReac Unknown Verified 11/21/23 00:10 Review of Systems Review of Systems: Pertinent positives per HPI. Patient denies any fever, rash, headache, visual changes, dizziness, chest pain, palpitations, nausea, vomiting, diarrhea, constipation, abdominal pain, or any urinary issues. [facility] Past Medical History Medical History Anxiety Breast cancer Chronic anticoagulation Chronic back pain Collagenous colitis Congestive heart failure COVID-19 Deep venous thrombosis Depression Irritable bowel syndrome Kidney stone Morbid obesity Multiple thyroid nodules Obstructive sleep apnea on CPAP Overactive bladder Peripheral neuropathy Pulmonary embolism positive for coagulation workup Restless leg syndrome Type 2 diabetes mellitus Surgical History Surgical History History of bilateral mastectomy History of cardiac catheterization Reportedly negative for coronary artery disease. History of cholecystectomy History of colonoscopy History of cystoscopy History of esophagogastroduodenoscopy (EGD) History of right oophorectomy History of total right knee replacement History of umbilical hernia repair History o
[2023-11-28 17:39] VITALS: BP 157/87; PULSE 89; RESP 20; TEMP 37.1; O2SAT 97
--- NOTE | 2023-11-28 17:47 | ECG_ITS ---
Test Date: 2023-11-28 18:21:42 Measurements Intervals [place] Rate: 78 P: 43 AK: 137 QRS: 5 QRSD: 86 T: 52 QT: 379 QTc: 434 Interpretive Statements SINUS RHYTHM POSSIBLE LEFT ATRIAL ENLARGEMENT [-0.1mV P WAVE IN V1/V2] NONSPECIFIC T-WAVE ABNORMALITY Compared to ECG 10/18/2023 23:32:06 NO SIGNIFICANT CHANGES Electronically Signed On 11-29-2023 17:07:47 CDT by Ricky Laboy M.D.
[2023-11-28 18:27] LABS: EDINFLUASCREEN Negative; EDINFLUBSCREEN Negative
[2023-11-28 18:51] LABS: EDUAAPPEAR Clear; EDUABILI Negative; EDUABLOOD 1+; EDUACOLOR1 Yellow; EDUAGLUCOSE Negative; EDUAKETONE Negative; EDUALEUKO Negative; EDUANITRATE Negative; EDUAPH 5.5; EDUAPROTEIN Negative; EDUAUROBILI 0.2
== END 2023-11-28 18:56 | disposition home or self-care (01) ==
PROVIDERS: Emergency Provider Nurse Practitioner Family; PCP Internal Medicine
DX: J06.9 Acute upper respiratory infection, unspecified (principal); Z20.822 Contact with and (suspected) exposure to COVID-19; E66.01 Morbid (severe) obesity due to excess calories; Z68.42 Body mass index [BMI] 45.0-49.9, adult; G47.30 Sleep apnea, unspecified; G25.81 Restless legs syndrome; E11.9 Type 2 diabetes mellitus without complications; Z79.4 Long term (current) use of insulin; Z86.711 Personal history of pulmonary embolism; Z86.718 Personal history of other venous thrombosis and embolism; Z86.16 Personal history of COVID-19; Z85.3 Personal history of malignant neoplasm of breast; Z90.13 Acquired absence of bilateral breasts and nipples; Z96.651 Presence of right artificial knee joint; Z96.82 Presence of neurostimulator
CPT/HCPCS: 71046; 81003; 87426; 87804; 93005; 99213; G0463

== ENCOUNTER 2023-11-29 17:11 | Emergency (ER) | payer MEDICARE, MEDICAID, SELFPAY ==
[2023-11-29] VITALS (14 sets, daily range): BP systolic 110–158; BP diastolic 53–96; PULSE 73–86; RESP 10–23; TEMP 36.7; O2SAT 96–100
--- NOTE | ~2023-11-29 | XR_ITS ---
XR chest 2V Ordering provider: Neptali Mcmillan MD History: 68 years Female with . weakness . Comparison: None. FINDINGS: MEDIASTINUM: The cardiac silhouette is not enlarged. LUNGS: No infiltrates, effusions or pneumothorax. Prominent markings in the lower lobes. OTHER: No free air under the diaphragm. Degenerative spine. Spinal stimulator is seen in the midthoracic area. IMPRESSION: No acute cardiopulmonary pathology. Reviewed, dictated and finalized at location A.
--- NOTE | 2023-11-29 18:12 | ECG_ITS ---
Test Date: 2023-11-29 20:24:02 Measurements Intervals [place] Rate: 72 P: 30 MT: 134 QRS: 13 QRSD: 90 T: 48 QT: 378 QTc: 415 Interpretive Statements SINUS RHYTHM WITHIN NORMAL LIMITS Compared to ECG 11/28/2023 18:21:42 T-wave abnormality no longer present Electronically Signed On 11-30-2023 07:14:21 CDT by Justen Jean-Baptiste M.D.
[2023-11-29 20:32] LABS: Basophils Percent Auto 0.4 % (0.2-1.2); Eosinophils Absolute Auto 0.1 K/mm3 (0-0.3); Eosinophils Percent Auto 1.8 % (0-4.4); Hematocrit 41.9 % (37.0-47.0); Hemoglobin 13.3 g/dL (12.0-15.0); Immature Granulocyte Absolute 0.03 K/mm3 (0.00-0.031); Immature Granulocyte Percent A 0.4 % (0-0.5); Lymphocytes Absolute Auto 2.06 K/mm3 (0.9-3.2); Lymphocytes Percent Auto 30.1 % (18.3-44.2); Mean Corpuscular HGB Conc 31.7 g/dl (32-36); Mean Corpuscular Volume 91.5 fl (80-100); Mean Platelet Volume 9.7 fl (7.4-10.4); Monocytes Absolute Auto 0.8 K/mm3 (0.1-0.6); Monocytes Percent Auto 11.8 % (2.6-8.5); Neutrophils Absolute Auto 3.8 K/mm3 (1.3-6.7); Neutrophils Percent Auto 55.5 % (45.5-73.1); Platelet Count Result 267 k/mm3 (150-375); Red Blood Count 4.58 M/mm3 (4.2-5.4); White Blood Count 6.8 K/mm3 (4.5-10.0)
[2023-11-29 20:44] LABS: Alanine Aminotransferase 26 U/L (6-35); Albumin Level 4.1 g/dL (3.5-5.1); Alkaline Phosphatase 78 U/L (38-126); Anion Gap 8 mmol/L (4-12); Aspartate Amino Transferase 30 U/L (14-36); Bilirubin,Total 0.4 mg/dL (0.2-1.3); Blood Urea Nitrogen 13 mg/dL (7-17); Carbon Dioxide 28 mmol/L (22-30); Chloride 100 mmol/L (98-107); Estimated CRCL calculation 93 ml/min; Estimated Glomerular Filt Rate > 60; Glucose 222 mg/dL (65-110); Potassium 4.3 mmol/L (3.4-5.0); Sodium 136 mmol/L (137-145)
--- NOTE | 2023-11-29 22:48 | ED.WEAKNESS ---
HPI - Weakness General Chief complaint: Weakness Stated complaint: I think im dehydrated Time Seen by Provider: 11/29/23 21:52 History of Present Illness HPI Narrative: 68-year-old female with a history of type 2 diabetes, LUL, morbid obesity, PE and DVT chronically anticoagulated on Xarelto presents to the emergency department for concerns for dehydration. This patient is well-known to our emergency department. She states a couple days ago she began having headaches, nasal congestion, cough and generalized weakness. Him to urgent care yesterday where she had a negative COVID and flu test, negative UA. She was diagnosed with a virus and advised supportive measurement. She presents today because she is concerned she is dehydrated. She reports decreased p.o. intake. States she has been dehydrated in the past and feels the same. She denies abdominal pain, vomiting or diarrhea. States she felt nauseous after eating earlier. Denies chest pain. States she feels somewhat short of breath. Denies fever Related Data Home Medications Medication Instructions Recorded Confirmed exemestane 25 mg tablet 25 mg PO HS 01/06/20 11/17/23 insulin glargine 100 unit/mL (3 32 unit subcut QAM 01/06/20 11/17/23 mL) subcutaneous pen (Lantus Solostar U-100 Insulin) ropinirole 5 mg tablet 5 mg PO HS 01/06/20 11/17/23 insulin lispro 100 unit/mL 28 unit subcut TID 03/19/22 11/17/23 subcutaneous pen (Humalog KwikPen (U-100) Insulin) methenamine hippurate 1 gram tablet 1 g PO BID 07/19/22 11/17/23 oxybutynin chloride 15 mg 15 mg PO DAILY 11/06/22 11/17/23 tablet,extended release 24 hr gabapentin 300 mg capsule 300 mg PO TID 06/25/23 11/17/23 Allergies Allergy/AdvReac Type Severity Reaction Status Date / Time ceftriaxone Allergy Severe SOB Verified 11/29/23 17:12 cephalexin Allergy Severe Difficulty Verified 11/29/23 17:12 Breathing Cephalosporins Allergy Severe Difficulty Verified 11/29/23 17:12 Breathing lorazepam Allergy Severe Swelling Verified 11/29/23 17:12 metoclopramide Allergy Intermediate Other Verified 11/29/23 17:12 chlorhexidine Allergy Mild BLISTERING Verified 11/29/23 17:12 levofloxacin Allergy Mild Hives / Verified 11/29/23 17:12 Red Face ketorolac Allergy Itching Verified 11/29/23 17:12 latex Allergy Rash Verified 11/29/23 17:12 nitrofurantoin Allergy Itching Verified 11/29/23 17:12 sulfamethoxazole Allergy Itching Verified 11/29/23 17:12 [From Sulfamethoxazole-Trimethoprim] trazodone Allergy Swelling Verified 11/29/23 17:12 of Lip/Tongue/Throat trimethoprim Allergy Itching Verified 11/29/23 17:12 [From Sulfamethoxazole-Trimethoprim] oxycodone AdvReac Mild Vomiting Verified 11/29/23 17:12 amlodipine AdvReac Swelling Verified 11/29/23 17:12 lisinopril AdvReac Swelling Verified 11/29/23 17:12 meropenem AdvReac Rash Verified 11/29/23 17:12 pregabalin AdvReac Swelling Verified 11/29/23 17:12 reslizumab AdvReac Unknown Verified 11/29/23 17:12 Review of Systems Review of Systems: All systems reviewed & are unremarkable except as noted in HPI and below PMFSH Past Medical History Medical History Anxiety Breast cancer Chronic anticoagulation Chronic back pain Collagenous colitis Congestive heart failure COVID-19 Deep venous thrombosis Depression Irritable bowel syndrome Kidney stone Morbid obesity Multiple thyroid nodules Obstructive sleep apnea on CPAP Overactive bladder Peripheral neuropathy Pulmonary embolism positive for coagulation workup Restless leg syndrome Type 2 diabetes mellitus Surgical History Surgical History History of bilateral mastectomy History of cardiac catheterization Reportedly negative for coronary artery disease. History of cholecystectomy History of colonoscopy History of cystoscopy History of esophagogastroduod
[2023-11-29 23:11] LABS: NT Pro B Type Natriuretic Pept 56 pg/mL (19.9-100); Troponin I < 0.012 ng/mL (0.000-0.034)
[2023-11-29] MEDS: SODIUM CHLORIDE 0.9% IV 1,000 ML 999 ML IV CONT (23:16)
[2023-11-29] MEDS: ONDANSETRON INJ 4 MG/2 ML VIAL IV PUSH (23:17)
[2023-11-29] MEDS: ACETAMINOPHEN 325 MG TABLET 650 MG PO (23:17)
[2023-11-29 23:58] LABS: Influenza A QL RT-PCR Negative (Negative); Influenza B QL RT-PCR Negative (Negative); RSV RNA, RT-PCR Negative (Negative); SARS-CoV-2 RNA PCR Positive (Negative)
[2023-11-30] VITALS (9 sets, daily range): BP systolic 128; BP diastolic 76–77; PULSE 75–78; RESP 17–23; TEMP 37.2; O2SAT 95–99
[2023-11-30 00:25] LABS: Add Urine Microscopic? YES; Appearance Urine Clear (Clear); Bacteria Urine 4+ /hpf; Bilirubin Urine Negative (Negative); Blood Urine Non-Hemolyzed Trace (Negative); Color Urine Yellow (Yellow); Glucose Urine UA Negative (Negative); Ketones Urine Negative (Negative); Leukocyte Esterase Ur 1+ LEU/UL (Negative); Nitrate Urine Positive (Negative); Non Pathogenic Casts 0-2; Protein Urine Negative (Negative); RBC Urine 0-2 /hpf (0-2); Specific Grav Ur 1.015 (1.001-1.035); Squamous Epithelial Cell Urine None Seen /hpf (Few); Urobilinogen Urine 0.2 mg/dL (<2.0); pH Urine 6.5 (5.0-9.0)
[2023-11-30] MEDS: AMOXICILLIN/CLAVULANATE K 875-125 MG TAB 1 TABLET PO (01:26)
== END 2023-11-30 01:56 | disposition home or self-care (01) ==
PROVIDERS: Emergency Medicine; Emergency Provider Physician Assistant; PCP Internal Medicine
DX: U07.1 COVID-19 (principal); R82.998 Other abnormal findings in urine; R06.02 Shortness of breath; E11.42 Type 2 diabetes mellitus with diabetic polyneuropathy; E66.01 Morbid (severe) obesity due to excess calories; Z68.42 Body mass index [BMI] 45.0-49.9, adult; G25.81 Restless legs syndrome; N32.81 Overactive bladder; K58.9 Irritable bowel syndrome, unspecified; G47.33 Obstructive sleep apnea (adult) (pediatric); F41.9 Anxiety disorder, unspecified; F32.A Depression, unspecified; Z96.82 Presence of neurostimulator; Z86.711 Personal history of pulmonary embolism; Z86.718 Personal history of other venous thrombosis and embolism; Z85.3 Personal history of malignant neoplasm of breast; Z86.16 Personal history of COVID-19; Z87.442 Personal history of urinary calculi; Z90.13 Acquired absence of bilateral breasts and nipples; Z90.49 Acquired absence of other specified parts of digestive tract; Z90.721 Acquired absence of ovaries, unilateral; Z96.651 Presence of right artificial knee joint; Z79.01 Long term (current) use of anticoagulants; Z79.02 Long term (current) use of antithrombotics/antiplatelets; Z79.4 Long term (current) use of insulin; Z79.899 Other long term (current) drug therapy
CPT/HCPCS: 36415; 71046; 80053; 81001; 83880; 84484; 85025; 87077; 87086; 87088; 87186; 87637; 93005; 96361; 96374; 99284; A9270; J2405; J7030

== ENCOUNTER 2023-12-04 13:51 | Emergency (ER) | payer MEDICARE, MEDICAID, SELFPAY ==
--- NOTE | ~2023-12-04 | XR_ITS ---
EXAMINATION: XR chest 2V Exam Date/Time: 12/04/2023 16:10 CDT HISTORY: shortness of breath, COVID+, weakness, cough Comparison: 11/29/2023. RESULT: Lines, tubes, and devices: Spinal stimulator over the midthoracic spine. Lungs and pleura: Senescent/emphysematous changes. Linear right basilar scar/atelectasis. Otherwise clear. Cardiomediastinal silhouette: Stable. Other: No acute osseous or upper abdominal finding. IMPRESSION: No acute cardiopulmonary process. Reviewed, dictated and finalized at location K.
[2023-12-04 13:52] VITALS: BP 168/88; PULSE 81; RESP 24; TEMP 36.6; O2SAT 99
--- NOTE | 2023-12-04 14:50 | ED.SOB ---
HPI - SOB/Dyspnea General Chief Complaint: Shortness of Breath/Dyspnea <Codie Walters APRN - Last Filed: 12/04/23 16:40> Stated Complaint: SOB and elevated blood sugar <Codie Walters APRN - Last Filed: 12/04/23 16:40> Time Seen by Provider: 12/04/23 16:32 <Codie Walters APRN - Last Filed: 12/04/23 16:40> Focused HPI: Pt is a 68-year-old female who presents to the ER with a chief complaint of shortness of breath and continued UTI symptoms. She was diagnosed with COVID and a UTI about 4-5 days ago. She went home on Augmentin and continues to take the antibiotic. Pt is unsure as to whether or not her symptoms have gotten better. She also reports her sugars have been spiking up to the 400s. Pt takes Humalog, Lantus, and is on a sliding scale. GENERAL: Well-appearing, well-nourished, and in no acute distress. She is tearful in triage. HEAD: Normocephalic, atraumatic. CHEST: Clear to auscultation. ?No respiratory distress. HEART: Regular rate and rhythm.? NEURO: ?Alert and oriented x3. Patient screened in triage and initial orders placed.? ?Additional care and disposition to be based upon?diagnostic testing and treatment. <Codie Walters APRN - Last Filed: 12/04/23 16:40> Source: patient <Codie Walters APRN - Last Filed: 12/04/23 16:40> Mode of arrival: ambulatory <Codie Walters APRN - Last Filed: 12/04/23 16:40> Limitations: no limitations <Codie Walters APRN - Last Filed: 12/04/23 16:40> History of Present Illness HPI Narrative: This is a 68-year-old female with a past medical history significant for type 2 diabetes, DVT, PE presently on Xarelto. Patient presents to the ED with a chief complaint of increased shortness of breath, recently diagnosed positivity for COVID on 11/29. Patient was also recently treated for UTI and complete her course of Augmentin without any residual symptoms. She states that she is having increased difficulty in breathing, sore throat, myalgias diffusely, subjective fever and chills and shakes. Was otherwise in her normal state of health recently. Has previously had COVID in the past as not vaccinated. States this is more severe than the previous COVID she has had. <Efrain Krueger MD - Last Filed: 12/04/23 17:55> Related Data Home Medications: Home Medications Medication Instructions Recorded Confirmed exemestane 25 mg tablet 25 mg PO HS 01/06/20 11/17/23 insulin glargine 100 unit/mL (3 32 unit subcut QAM 01/06/20 11/17/23 mL) subcutaneous pen (Lantus Solostar U-100 Insulin) ropinirole 5 mg tablet 5 mg PO HS 01/06/20 11/17/23 insulin lispro 100 unit/mL 28 unit subcut TID 03/19/22 11/17/23 subcutaneous pen (Humalog KwikPen (U-100) Insulin) methenamine hippurate 1 gram tablet 1 g PO BID 07/19/22 11/17/23 oxybutynin chloride 15 mg 15 mg PO DAILY 11/06/22 11/17/23 tablet,extended release 24 hr gabapentin 300 mg capsule 300 mg PO TID 06/25/23 11/17/23 <Codie Walters, ZAMZAM - Last Filed: 12/04/23 16:40> Allergies/Adverse Reactions: Allergies Allergy/AdvReac Type Severity Reaction Status Date / Time ceftriaxone Allergy Severe SOB Verified 12/04/23 16:50 cephalexin Allergy Severe Difficulty Verified 12/04/23 16:50 Breathing Cephalosporins Allergy Severe Difficulty Verified 12/04/23 16:50 Breathing lorazepam Allergy Severe Swelling Verified 12/04/23 16:50 metoclopramide Allergy Intermediate Other Verified 12/04/23 16:50 chlorhexidine Allergy Mild BLISTERING Verified 12/04/23 16:50 levofloxacin Allergy Mild Hives / Verified 12/04/23 16:50 Red Face ketorolac Allergy Itching Verified 12/04/23 16:50 latex Allergy Rash Verified 12/04/23 16:50 nitrofurantoin Allergy Itching Verified 12/04/23 16:50 sulfamethoxazole Allergy Itching Verified 12/04/23 16:50 [From Sulfamethoxazole-Trimethoprim] trazodone Allergy Swelling Verified 12/04/23 16:50 of L
--- NOTE | 2023-12-04 14:55 | ECG_ITS ---
Test Date: 2023-12-04 15:18:43 Measurements Intervals [place] Rate: 72 P: 18 MI: 136 QRS: 15 QRSD: 89 T: 45 QT: 382 QTc: 418 Interpretive Statements SINUS RHYTHM Compared to ECG 11/29/2023 20:24:02 No significant changes Electronically Signed On 12-05-2023 08:49:23 CDT by Ricky Laboy M.D.
[2023-12-04 15:29] LABS: Glucose Point of Care 239 mg/dl (65-105)
[2023-12-04 15:38] LABS: Basophils Percent Auto 0.4 % (0.2-1.2); Eosinophils Absolute Auto 0.2 K/mm3 (0-0.3); Eosinophils Percent Auto 1.7 % (0-4.4); Hematocrit 43.5 % (37.0-47.0); Hemoglobin 13.7 g/dL (12.0-15.0); Immature Granulocyte Absolute 0.03 K/mm3 (0.00-0.031); Immature Granulocyte Percent A 0.3 % (0-0.5); Lymphocytes Absolute Auto 3.15 K/mm3 (0.9-3.2); Lymphocytes Percent Auto 34.1 % (18.3-44.2); Mean Corpuscular HGB Conc 31.5 g/dl (32-36); Mean Corpuscular Hemoglobin 28.7 pg (26-34); Mean Platelet Volume 9.6 fl (7.4-10.4); Monocytes Absolute Auto 0.6 K/mm3 (0.1-0.6); Monocytes Percent Auto 6.9 % (2.6-8.5); Neutrophils Absolute Auto 5.2 K/mm3 (1.3-6.7); Neutrophils Percent Auto 56.6 % (45.5-73.1); Platelet Count Result 290 k/mm3 (150-375); Red Blood Count 4.78 M/mm3 (4.2-5.4); Red Cell Distribution Width 13.6 % (11.5-14.5); White Blood Count 9.2 K/mm3 (4.5-10.0)
[2023-12-04 15:41] LABS: Add Urine Microscopic? YES; Appearance Urine Clear (Clear); Bacteria Urine None Seen /hpf; Bilirubin Urine Negative (Negative); Blood Urine Negative (Negative); Color Urine Yellow (Yellow); Glucose Urine UA 3+ mg/dL (Negative); Ketones Urine Trace mg/dL (Negative); Leukocyte Esterase Ur Negative LEU/UL (Negative); Nitrate Urine Negative (Negative); Non Pathogenic Casts 0-2; Protein Urine Trace mg/dL (Negative); RBC Urine 0-2 /hpf (0-2); Specific Grav Ur 1.033 (1.001-1.035); Squamous Epithelial Cell Urine None Seen /hpf (Few); Urobilinogen Urine 0.2 mg/dL (<2.0); WBC Urine 0-5 /hpf (0-3)
[2023-12-04 15:48] LABS: Alanine Aminotransferase 22 U/L (6-35); Albumin Level 4.1 g/dL (3.5-5.1); Alkaline Phosphatase 73 U/L (38-126); Anion Gap 9 mmol/L (4-12); Aspartate Amino Transferase 25 U/L (14-36); Bilirubin,Total 0.8 mg/dL (0.2-1.3); Blood Urea Nitrogen 19 mg/dL (7-17); Calcium 9.4 mg/dL (8.4-10.2); Carbon Dioxide 30 mmol/L (22-30); Chloride 97 mmol/L (98-107); Estimated CRCL calculation 85 ml/min; Estimated Glomerular Filt Rate > 60; Glucose 216 mg/dL (65-110); Sodium 136 mmol/L (137-145)
[2023-12-04 16:30] VITALS: BP 132/78; O2SAT 100
[2023-12-04 16:30] LABS: NT Pro B Type Natriuretic Pept 69 pg/mL (19.9-100)
[2023-12-04 16:46] VITALS: O2SAT 100
[2023-12-04 16:51] VITALS: O2SAT 100
[2023-12-04] MEDS: ACETAMINOPHEN 500 MG TABLET 1000 MG PO (18:20)
[2023-12-04] MEDS: LACTATED RINGERS 1,000 ML 999 ML IV CONT (18:21)
[2023-12-04] MEDS: dexAMETHasone SOD PHOS INJ 10 MG/ML 1 ML VIAL IV PUSH (18:21)
[2023-12-04 18:23] VITALS: BP 135/82; PULSE 82; RESP 16; O2SAT 99
== END 2023-12-04 19:27 | disposition home or self-care (01) ==
PROVIDERS: Registered Nurse; Emergency Provider Student in an Organized Health Care Education/Training Program; PCP Internal Medicine
DX: U07.1 COVID-19 (principal); J02.9 Acute pharyngitis, unspecified; R06.02 Shortness of breath; Z28.310 Unvaccinated for COVID-19; E11.42 Type 2 diabetes mellitus with diabetic polyneuropathy; E66.01 Morbid (severe) obesity due to excess calories; Z68.42 Body mass index [BMI] 45.0-49.9, adult; G25.81 Restless legs syndrome; N32.81 Overactive bladder; K58.9 Irritable bowel syndrome, unspecified; G47.33 Obstructive sleep apnea (adult) (pediatric); F41.9 Anxiety disorder, unspecified; F32.A Depression, unspecified; Z96.82 Presence of neurostimulator; Z86.711 Personal history of pulmonary embolism; Z86.718 Personal history of other venous thrombosis and embolism; Z85.3 Personal history of malignant neoplasm of breast; Z86.16 Personal history of COVID-19; Z87.442 Personal history of urinary calculi; Z90.49 Acquired absence of other specified parts of digestive tract; Z90.13 Acquired absence of bilateral breasts and nipples; Z90.721 Acquired absence of ovaries, unilateral; Z96.651 Presence of right artificial knee joint; Z79.01 Long term (current) use of anticoagulants; Z79.02 Long term (current) use of antithrombotics/antiplatelets; Z79.4 Long term (current) use of insulin; Z79.899 Other long term (current) drug therapy
CPT/HCPCS: 36415; 71046; 80053; 81001; 82948; 83880; 85025; 93005; 96361; 96374; 99284; A9270; J1100; J7120

== ENCOUNTER 2023-12-05 01:47 | Inpatient (IN) | payer MEDICARE, MEDICAID, SELFPAY ==
[2023-12-05] VITALS (17 sets, daily range): BP systolic 99–175; BP diastolic 41–102; PULSE 61–80; RESP 16–24; TEMP 36.1–36.8; O2SAT 93–100; BMI 73.8
--- NOTE | ~2023-12-05 | XR_ITS ---
EXAMINATION: XR chest 1V portable DATE: 12/07/2023 00:18 INDICATION: Hyperglycemia. TECHNIQUE: A single frontal view of the chest was obtained. COMPARISON: Chest 2 views 12/04/2023 FINDINGS: The patient is rotated to her left. There is no pneumonia, pleural effusion, or pneumothora x. Cardiomegaly is noted. Epidural electrodes are noted. IMPRESSION: 1. Cardiomegaly. Reviewed, dictated and finalized at location A. IMPRESSION: 1. Cardiomegaly.
--- NOTE | ~2023-12-05 | CT_ITS ---
EXAMINATION: CT soft tiss neck chst ab w DATE: 12/05/2023 11:19 INDICATION: angioedema, ?allergic reaction TECHNIQUE: Computed tomography (CT) of the neck and chest was performed with 100 mL Omnipaque-350 int ravenous contrast. Additional 3D reconstructions utilizing coronal maximum intensity projection (MIP) were performed. Automated exposure control and iterative reconstruction technique were employed. The dose-length product was 1507.21 mGy-cm. COMPARISON: 06/03/2023 and 06/22/2023 FINDINGS: Neck: Orbits are normal. Mild mucosal thickening the bilateral ethmoid and maxillary sinuses. Mastoid air c ells and middle ear cavities are clear. Submandibular and parotid glands are symmetric. Stable appear ance of a multinodular goiter. Again seen is symmetric enlargement of the bilateral lingual and palat ine tonsils resulting in some narrowing of the oropharyngeal and nasopharyngeal airway but to a lesse r degree than on the prior study. No evident abscess. Epiglottis, aryepiglottic folds and prevertebra l soft tissues are unremarkable. There are scattered normal-sized lymph nodes in the neck, no patholo gically enlarged lymphadenopathy. No masses identified. The vasculature is patent and normal in [place]. Slight reversal of the normal cervical lordosis with mild lower cervical spondylosis. Chest: Unchanged mild peripheral reticular opacities on the anterior left upper lobe and lingula consistent with chronic fibrosis with distribution suggesting sequela of prior radiation treatment. No pneumonia , pulmonary edema or pleural effusion. Heart size is normal. Aortic valve and mitral annular calcific ations. No pericardial effusion. No significant change in mildly prominent but still normal-sized pre vascular lymph node measuring 9 mm in maximal short axis diameter which is been present dating back t o 12/14/2017. No pathologically enlarged abdominal or pelvic lymphadenopathy. Thoracic aorta is normal in caliber with no dissection. Cholecystectomy clips at gallbladder fossa. 2.0 cm right renal cyst. There are few scattered diverticula along the visualized descending colon without adjacent comparison to suggest diverticulitis. Moderate to severe thoracic spondylosis with T7 and T8 laminectomies and spinal stimulator lead at the posterior central canal also the level of T7-T8. IMPRESSION: 1. Enlargement of the bilateral lingual and palatine tonsils without evident abscess.. There is also some narrowing of the nasopharyngeal and oropharyngeal airway to lesser degree than on the prior CT f rom 06/03/2023. 2. No acute cardiopulmonary disease. Reviewed, dictated and finalized at location A. IMPRESSION: 1. Enlargement of the bilateral lingual and palatine tonsils without evident ab scess.. There is also some narrowing of the nasopharyngeal and oropharyngeal ai rway to lesser degree than on the prior CT from 06/03/2023. 2. No acute cardiopulmonary disease.
[2023-12-05 02:04] LABS: Glucose Point of Care 375 mg/dl (65-105)
[2023-12-05 02:20] LABS: Basophils Percent Auto 0.1 % (0.2-1.2); Hematocrit 43.4 % (37.0-47.0); Hemoglobin 14.1 g/dL (12.0-15.0); Immature Granulocyte Absolute 0.03 K/mm3 (0.00-0.031); Immature Granulocyte Percent A 0.4 % (0-0.5); Lymphocytes Absolute Auto 0.96 K/mm3 (0.9-3.2); Mean Corpuscular HGB Conc 32.5 g/dl (32-36); Mean Corpuscular Hemoglobin 28.8 pg (26-34); Mean Corpuscular Volume 88.8 fl (80-100); Mean Platelet Volume 9.5 fl (7.4-10.4); Monocytes Absolute Auto 0.1 K/mm3 (0.1-0.6); Monocytes Percent Auto 0.9 % (2.6-8.5); Neutrophils Absolute Auto 6.3 K/mm3 (1.3-6.7); Neutrophils Percent Auto 85.6 % (45.5-73.1); Platelet Count Result 283 k/mm3 (150-375); Red Blood Count 4.89 M/mm3 (4.2-5.4); Red Cell Distribution Width 13.5 % (11.5-14.5); White Blood Count 7.4 K/mm3 (4.5-10.0)
[2023-12-05 02:32] LABS: Alanine Aminotransferase 27 U/L (6-35); Albumin Level 4.2 g/dL (3.5-5.1); Alkaline Phosphatase 90 U/L (38-126); Anion Gap 13 mmol/L (4-12); Aspartate Amino Transferase 29 U/L (14-36); Bilirubin,Total 0.7 mg/dL (0.2-1.3); Blood Urea Nitrogen 19 mg/dL (7-17); Calcium 9.5 mg/dL (8.4-10.2); Carbon Dioxide 26 mmol/L (22-30); Chloride 97 mmol/L (98-107); Estimated Glomerular Filt Rate > 60; Glucose 402 mg/dL (65-110); Magnesium 1.6 mg/dL (1.6-2.3); Sodium 136 mmol/L (137-145)
[2023-12-05 02:34] LABS: Beta-Hydroxybutyrate/Acetoacetate 0.14 mmol/L (0.02-0.27)
[2023-12-05] MEDS: INSULIN HUMAN REGULAR (*BKC) 100 UNITS/ML 10 UNITS IV PUSH (02:54)
[2023-12-05] MEDS: LACTATED RINGERS 1,000 ML 999 ML IV CONT (02:54)
[2023-12-05] MEDS: POTASSIUM CHLORIDE 20 MEQ ER TABLET 40 MEQ PO (02:54)
--- NOTE | 2023-12-05 03:36 | PC.NURSE ---
Called [facility] at [phone]. At this time patient still waiting for a bed.
--- NOTE | 2023-12-05 03:51 | ED.RECABL ---
HPI - Recheck/Abnormal Lab/Rx General Chief Complaint: Recheck/Abnormal Lab/Rx Stated Complaint: hyperglycemia Time Seen by Provider: 12/05/23 01:54 History of Present Illness HPI narrative: Patient has history of diabetes which is not very well controlled on insulin, was diagnosed with COVID today, given a dose of steroids, and now subsequently has very high blood sugars despite having given herself more insulin at home. She states that she feels very unwell and would like to be admitted Related Data Home Medications Medication Instructions Recorded Confirmed exemestane 25 mg tablet 25 mg PO HS 01/06/20 11/17/23 insulin glargine 100 unit/mL (3 32 unit subcut QAM 01/06/20 11/17/23 mL) subcutaneous pen (Lantus Solostar U-100 Insulin) ropinirole 5 mg tablet 5 mg PO HS 01/06/20 11/17/23 insulin lispro 100 unit/mL 28 unit subcut TID 03/19/22 11/17/23 subcutaneous pen (Humalog KwikPen (U-100) Insulin) methenamine hippurate 1 gram tablet 1 g PO BID 07/19/22 11/17/23 oxybutynin chloride 15 mg 15 mg PO DAILY 11/06/22 11/17/23 tablet,extended release 24 hr gabapentin 300 mg capsule 300 mg PO TID 06/25/23 11/17/23 Allergies Allergy/AdvReac Type Severity Reaction Status Date / Time ceftriaxone Allergy Severe SOB Verified 12/05/23 01:48 cephalexin Allergy Severe Difficulty Verified 12/05/23 01:48 Breathing Cephalosporins Allergy Severe Difficulty Verified 12/05/23 01:48 Breathing lorazepam Allergy Severe Swelling Verified 12/05/23 01:48 metoclopramide Allergy Intermediate Other Verified 12/05/23 01:48 chlorhexidine Allergy Mild BLISTERING Verified 12/05/23 01:48 levofloxacin Allergy Mild Hives / Verified 12/05/23 01:48 Red Face ketorolac Allergy Itching Verified 12/05/23 01:48 latex Allergy Rash Verified 12/05/23 01:48 nitrofurantoin Allergy Itching Verified 12/05/23 01:48 sulfamethoxazole Allergy Itching Verified 12/05/23 01:48 [From Sulfamethoxazole-Trimethoprim] trazodone Allergy Swelling Verified 12/05/23 01:48 of Lip/Tongue/Throat trimethoprim Allergy Itching Verified 12/05/23 01:48 [From Sulfamethoxazole-Trimethoprim] oxycodone AdvReac Mild Vomiting Verified 12/05/23 01:48 amlodipine AdvReac Swelling Verified 12/05/23 01:48 lisinopril AdvReac Swelling Verified 12/05/23 01:48 meropenem AdvReac Rash Verified 12/05/23 01:48 pregabalin AdvReac Swelling Verified 12/05/23 01:48 reslizumab AdvReac Unknown Verified 12/05/23 01:48 Review of Systems Review of Systems: All systems reviewed & are unremarkable except as noted in HPI and below PMFSH Past Medical History Medical History Anxiety Breast cancer Chronic anticoagulation Chronic back pain Collagenous colitis Congestive heart failure COVID-19 Deep venous thrombosis Depression Irritable bowel syndrome Kidney stone Morbid obesity Multiple thyroid nodules Obstructive sleep apnea on CPAP Overactive bladder Peripheral neuropathy Pulmonary embolism positive for coagulation workup Restless leg syndrome Type 2 diabetes mellitus Surgical History Surgical History History of bilateral mastectomy History of cardiac catheterization Reportedly negative for coronary artery disease. History of cholecystectomy History of colonoscopy History of cystoscopy History of esophagogastroduodenoscopy (EGD) History of right oophorectomy History of total right knee replacement History of umbilical hernia repair History of ureter stent Status post insertion of spinal cord stimulator Family History Family History Mother Diabetes mellitus Acute myocardial infarction Cerebrovascular accident Hypertension Congestive heart failure Father Prostate carcinoma Sibling Breast cancer Acute myocardial infarction Chronic obstructive
[2023-12-05 04:22] LABS: Glucose Point of Care 276 mg/dl (65-105)
--- NOTE | 2023-12-05 06:11 | ADMGEN ---
This patient, Karly Marques, was admitted to [facility] Surg Room 313-01. Patient/family oriented to hospital policies and general routines including ID bracelet, bed and alarms, visiting hours, pain management, procedures, bathroom and other care routines, personal items, smoking policy, room service/diet, and visiting hours. Information on how to activate the Rapid Response Team has been discussed. Patient/Family are encouraged to report perceived risks to care and to ask questions if they do not understand what they are told or what they should do.
[2023-12-05 08:00] LABS: Glucose Point of Care 220 mg/dl (65-105)
--- NOTE | 2023-12-05 08:45 | PM.IMHP ---
H&P: HPI History of Present Illness Date/Time: 12/05/23 08:45 Chief Complaint: Hyperglycemia Narrative: This is a 68-year-old female with a significant past medical history of anxiety, breast cancer, chronic back pain, congestive heart failure, DVT, depression, irritable bowel syndrome, morbid obesity, kidney stone, sleep apnea, overactive bladder, peripheral neuropathy, PE, restless legs syndrome, type 2 diabetes mellitus, former smoker, history of cholecystectomy, bilateral mastectomy, right oophorectomy, umbilical hernia repair, history of spinal cord stimulator who presents to the hospital with hyperglycemia. Patient reports the following history of presenting illness. Patient states she was recently seen in the ED on 11/29/2023 tested positive for COVID and was diagnosed with a urinary tract infection. She was started on Augmentin which she has tolerated Augmentin in the past. Patient does have a long history of allergies to antibiotics. She states that she was given steroids for her acute illness which have increased her blood sugars. She states that her blood sugars have been other control the last few days prompting her to come to the hospital for further evaluation. Patient denies any fever, chills, vomiting, diarrhea, abdominal pain, chest pain. Patient endorses shortness of breath however she is on room air, nausea, and feels like her throat is closing up. She does have history of angioedema in the past to a few different medications. Workup in the hospital included a chest x-ray which was negative. Initial labs showed a sodium of 136, chloride 97, BUN 19, blood sugars ranging 216-402, beta hydroxybutyrate 0.14. UA was obtained which showed 3+ glucose, trace ketones, otherwise normal. Last hemoglobin A1c was 7.8 on 10/02/2023. She was noted to be positive for COVID on 11/29/2023. Last echo was reviewed 12/11/2021 and shown normal LV systolic function with an estimated EF of 60-65%, grade 1 diastolic dysfunction, moderate aortic valve sclerosis. Patient had 1L LR, insulin 10 units IVP, potassium 40 meq while in the ER. Review of Systems Review of Systems: All systems reviewed & are unremarkable except as noted in HPI and below Constitutional: Constitutional: Reports as per HPI and Reports no additional constitutional complaints Eyes: Eyes: Reports as per HPI and Reports no additional eye complaints ENT: Reports system reviewed and no additional complaints, except as documented and Reports as per HPI Cardiovascular: Cardiovascular: Reports as per HPI and Reports no additional cardiovascular complaints Respiratory: Respiratory: Reports as per HPI and Reports no additional respiratory complaints Gastrointestinal: Gastrointestinal: Reports as per HPI and Reports no additional gastrointestinal complaints Genitourinary: Genitourinary: Reports no additional female genitourinary complaints and Reports as per HPI Musculoskeletal: Musculoskeletal: Reports no additional musculoskeletal complaints and Reports as per HPI Integumentary/Breasts: Skin/Breast: Reports system reviewed and no additional complaints, except as docu and Reports as per HPI Neurologic: Reports system reviewed and no additional complaints, except as documented and Reports as per HPI Psychiatric: Psychiatric: Reports no additional psychiatric complaints and Reports as per HPI [facility] Past Medical History Medical History Anxiety Breast cancer Chronic anticoagulation Chronic back pain Collagenous colitis Congestive heart failure COVID-19 Deep venous thrombosis Depression Irritable bowel syndrome Kidney stone Morbid obesity Multiple thyroid nodules Obstructive sleep apnea on CPAP Overactive bladder Peripheral neuropathy Pulmonary embolism positive for coagulation workup Restless leg syndrome Type 2 diabetes mellitus Surgical History Surgical History (Reviewed 12/05/23 @ 10:23 by Cordelia Lester
[2023-12-05] MEDS: AMOXICILLIN/CLAVULANATE K 875-125 MG TAB 1 TABLET PO (09:36)
[2023-12-05] MEDS: oxyBUTYnin CHLORIDE XL 5 MG TAB.ER.24 15 MG PO (09:36)
[2023-12-05] MEDS: GABAPENTIN 300 MG CAPSULE PO ×3 (09:36→16:24)
[2023-12-05] MEDS: guaiFENesin 12 HR 600 MG TABCR 1200 MG PO ×2 (09:36→21:16)
[2023-12-05] MEDS: HYDROcodone/acetaminophen (*CRX) 10-325 MG TABLET 1 TAB PO ×3 (09:36→21:13)
[2023-12-05] MEDS: INSULIN GLARGINE (*BKC) 100 UNITS/ML 32 UNITS SUB-Q (09:37)
[2023-12-05] MEDS: INSULIN ASPART (*BKC) 100 UNITS/ML 12 UNITS SUB-Q ×3 (09:37→16:20)
[2023-12-05] MEDS: INSULIN ASPART (*BKC) 100 UNITS/ML SUB-Q ×4 (09:37→21:18)
[2023-12-05 09:40] LABS: Cholesterol 198 mg/dL (0-200); HDL Direct 42 mg/dL; Triglycerides 100 mg/dL (<150)
[2023-12-05 09:50] LABS: LDL Cholesterol Direct 136 mg/dL
[2023-12-05 10:11] LABS: Thyroid Stimulating Hormone 0.657 uIU/mL (0.465-4.680)
[2023-12-05 10:47] LABS: Hemoglobin A1C 8.2 % (<5.7)
[2023-12-05] MEDS: ONDANSETRON INJ 4 MG/2 ML VIAL IV PUSH ×2 (11:31→21:13)
[2023-12-05] MEDS: ACETAMINOPHEN 325 MG TABLET 650 MG PO ×2 (11:31→21:13)
[2023-12-05 15:52] LABS: Glucose Point of Care 315 mg/dl (65-105)
[2023-12-05 15:52] LABS: Glucose Point of Care 218 mg/dl (65-105)
[2023-12-05] MEDS: RIVAROXABAN 20 MG TABLET PO (16:24)
[2023-12-05 20:28] LABS: Glucose Point of Care 275 mg/dl (65-105)
[2023-12-05] MEDS: rOPINIRole HCL 1 MG TABLET 5 MG PO (21:16)
[2023-12-05] MEDS: BENZOCAINE/MENTHOL (*BKC) 18 EA LOZENGE 1 LOZENGE PO (22:36)
[2023-12-06] MEDS: HYDROcodone/acetaminophen (*CRX) 10-325 MG TABLET 1 TAB PO ×3 (04:09→20:20)
[2023-12-06 04:45] VITALS: BP 133/54; PULSE 60; RESP 20; TEMP 36.1; O2SAT 96
[2023-12-06 06:58] LABS: Basophils Percent Auto 0.3 % (0.2-1.2); Eosinophils Absolute Auto 0.1 K/mm3 (0-0.3); Eosinophils Percent Auto 1.1 % (0-4.4); Hematocrit 39.9 % (37.0-47.0); Hemoglobin 12.1 g/dL (12.0-15.0); Immature Granulocyte Absolute 0.04 K/mm3 (0.00-0.031); Immature Granulocyte Percent A 0.4 % (0-0.5); Lymphocytes Absolute Auto 3.38 K/mm3 (0.9-3.2); Lymphocytes Percent Auto 33.3 % (18.3-44.2); Mean Corpuscular HGB Conc 30.3 g/dl (32-36); Mean Corpuscular Hemoglobin 27.9 pg (26-34); Mean Corpuscular Volume 92.1 fl (80-100); Mean Platelet Volume 9.7 fl (7.4-10.4); Monocytes Absolute Auto 0.7 K/mm3 (0.1-0.6); Neutrophils Absolute Auto 5.9 K/mm3 (1.3-6.7); Neutrophils Percent Auto 57.9 % (45.5-73.1); Platelet Count Result 269 k/mm3 (150-375); Red Blood Count 4.33 M/mm3 (4.2-5.4); Red Cell Distribution Width 13.9 % (11.5-14.5); White Blood Count 10.2 K/mm3 (4.5-10.0)
[2023-12-06 07:09] LABS: Alanine Aminotransferase 19 U/L (6-35); Albumin Level 3.6 g/dL (3.5-5.1); Alkaline Phosphatase 65 U/L (38-126); Anion Gap 7 mmol/L (4-12); Aspartate Amino Transferase 24 U/L (14-36); Bilirubin,Total 0.8 mg/dL (0.2-1.3); Blood Urea Nitrogen 21 mg/dL (7-17); Calcium 8.8 mg/dL (8.4-10.2); Carbon Dioxide 27 mmol/L (22-30); Chloride 100 mmol/L (98-107); Estimated CRCL calculation 106 ml/min; Estimated Glomerular Filt Rate > 60; Glucose 192 mg/dL (65-110); Potassium 4.2 mmol/L (3.4-5.0); Sodium 134 mmol/L (137-145)
[2023-12-06 07:29] LABS: Glucose Point of Care 193 mg/dl (65-105)
[2023-12-06] MEDS: guaiFENesin 12 HR 600 MG TABCR 1200 MG PO ×2 (08:31→20:12)
[2023-12-06] MEDS: GABAPENTIN 300 MG CAPSULE PO ×3 (08:31→17:27)
[2023-12-06] MEDS: AMOXICILLIN/CLAVULANATE K 875-125 MG TAB 1 TABLET PO ×2 (08:31→20:13)
[2023-12-06] MEDS: oxyBUTYnin CHLORIDE XL 5 MG TAB.ER.24 15 MG PO (08:32)
[2023-12-06] MEDS: INSULIN GLARGINE (*BKC) 100 UNITS/ML 42 UNITS SUB-Q (08:34)
[2023-12-06] MEDS: INSULIN ASPART (*BKC) 100 UNITS/ML 12 UNITS SUB-Q ×3 (08:34→17:27)
[2023-12-06] MEDS: ONDANSETRON INJ 4 MG/2 ML VIAL IV PUSH ×2 (09:07→20:20)
--- NOTE | 2023-12-06 10:10 | P.CDI_ITS ---
CDI Query Clarification Request Please clarify the status of the patient's COVID-19 infection, if known. Risk Factors: positive COVID on 11/30/23 Clinical Indicators: none Treatment: none * COVID-19 is a current/active infection * Current condition is a sequela of COVID-19 * Past history of COVID-19 * Other explanation of clinical findings (please specify) * Unable to determine <Kiesha Andrews RN - Last Filed: 12/06/23 10:13> Clarified Diagnosis Clarified Diagnosis: COVID 19 is an active/current infection. She was diagnosed on 11/29/23. <Melani Fletcher APRN - Last Filed: 12/06/23 11:48>
--- NOTE | 2023-12-06 10:10 | WPDCDIQUERY2 ---
CDI Query Clarification Request Please clarify the status of the patient's COVID-19 infection, if known. Risk Factors: positive COVID on 11/30/23 Clinical Indicators: none Treatment: none COVID-19 is a current/active infection Current condition is a sequela of COVID-19 Past history of COVID-19 Other explanation of clinical findings (please specify) Unable to determine <Kiesha Andrews RN - Last Filed: 12/06/23 10:13> Clarified Diagnosis Clarified Diagnosis: COVID 19 is an active/current infection. She was diagnosed on 11/29/23. <Melani Fletcher APRN - Last Filed: 12/06/23 11:48>
[2023-12-06] MEDS: methylPREDNISolone SOD SUCC 125 MG VIAL IV PUSH (10:40)
[2023-12-06 11:19] LABS: Glucose Point of Care 158 mg/dl (65-105)
--- NOTE | 2023-12-06 11:48 | P.PNIM_ITS ---
Progress Note: A&P Assessment and Plan (1) Acute hyperglycemia: Code(s): R73.9 - Hyperglycemia, unspecified Status: Acute Assessment and Plan: 12/05/23: * Initial blood sugar 216 on lab and increase to 402 * Hgb A1C on 10/02/2023 was 7.8 * Will repeat hemoglobin A1c today * Accu checks AC/HS * High-dose SSI ordered * Lantus 32 units ordered daily * Mealtime replacement 12 units t.i.d. with meals ordered * hypoglycemic protocol in place * Diabetic diet ordered 12/06/23: * Hemoglobin A1c 8.2 * Lantus increased to 45 units today * Continue with mealtime replacement 12 units t.i.d. * Continue with high-dose sliding scale * 1 time dose of Solu-Medrol was given today * Will continue to monitor blood sugars closely (2) COVID-19: Code(s): U07.1 - COVID-19 Status: Acute Assessment and Plan: 12/05/23: * Patient was positive for COVID on 11/29/2023 * Continue supportive care * Patient reporting today that it feels like her throat is closing up and has had multiple allergies to antibiotics. She is on Augmentin for a urinary tract infection and has tolerated Augmentin in the past. Airway does appear crowded. We will get a CT of the soft tissues of the neck to rule out any angioedema. Will put Augmentin on hold for now. 12/06/23: * No change to current treatment plan (3) Type 2 diabetes mellitus: Code(s): E11.9 - Type 2 diabetes mellitus without complications Status: Chronic Assessment and Plan: 12/05/23: * Blood sugars ranging 222-402 * Hgb A1C on 10/02/2023 was 7.8 * Will repeat hemoglobin A1c today * Accu checks AC/HS * High-dose SSI ordered * Lantus 32 units ordered daily * Mealtime replacement 12 units t.i.d. with meals ordered * hypoglycemic protocol in place * Diabetic diet ordered 12/06/23: * Blood sugars ranging 150-193 * Hemoglobin A1c 8.2 * Lantus changed to 45 units daily (4) DVT (deep venous thrombosis): Code(s): I82.409 - Acute embolism and thrombosis of unspecified deep veins of unspecified lower extremity Status: Chronic Assessment and Plan: 12/05/23: * Continue Xarelto 20 mg p.o. daily 12/06/23: * No change to current treatment plan (5) Pulmonary embolism: Code(s): I26.99 - Other pulmonary embolism without acute cor pulmonale Status: Chronic Assessment and Plan: See above (6) Low back pain: Code(s): M54.50 - Low back pain, unspecified Status: Chronic Assessment and Plan: 12/05/23: * [place] 10/325 ordered q.6 hour which is patient's home dose 12/06/23: * No change to current treatment Subjective Date/time seen: 12/06/23 11:48 Interval history: Interval history: This is a 68-year-old female with a significant past medical history of anxiety, breast cancer, chronic back pain, congestive heart failure, DVT, depression, irritable bowel syndrome, morbid obesity, kidney stone, sleep apnea, overactive bladder, peripheral neuropathy, PE, restless legs syndrome, type 2 diabetes mellitus, former smoker, history of cholecystectomy, bilateral mastectomy, right oophorectomy, umbilical hernia repair, history of spinal cord stimulator who presents to the hospital with hyperglycemia. Patient reports the following history of presenting illness. Patient states she was recently seen in the ED on 11/29/2023 tested positive for COVID and was diagnosed with a urinary tract infection. She was started on Augmentin which she has tolerated Augmentin in the past. Patient does have a long history of allergies to antibioti
--- NOTE | 2023-12-06 11:48 | PM.IMPN ---
Progress Note: A&P Assessment and Plan (1) Acute hyperglycemia: Code(s): R73.9 - Hyperglycemia, unspecified Status: Acute Assessment and Plan: 12/05/23: Initial blood sugar 216 on lab and increase to 402 Hgb A1C on 10/02/2023 was 7.8 Will repeat hemoglobin A1c today Accu checks AC/HS High-dose SSI ordered Lantus 32 units ordered daily Mealtime replacement 12 units t.i.d. with meals ordered hypoglycemic protocol in place Diabetic diet ordered 12/06/23: Hemoglobin A1c 8.2 Lantus increased to 45 units today Continue with mealtime replacement 12 units t.i.d. Continue with high-dose sliding scale 1 time dose of Solu-Medrol was given today Will continue to monitor blood sugars closely (2) COVID-19: Code(s): U07.1 - COVID-19 Status: Acute Assessment and Plan: 12/05/23: Patient was positive for COVID on 11/29/2023 Continue supportive care Patient reporting today that it feels like her throat is closing up and has had multiple allergies to antibiotics. She is on Augmentin for a urinary tract infection and has tolerated Augmentin in the past. Airway does appear crowded. We will get a CT of the soft tissues of the neck to rule out any angioedema. Will put Augmentin on hold for now. 12/06/23: No change to current treatment plan (3) Type 2 diabetes mellitus: Code(s): E11.9 - Type 2 diabetes mellitus without complications Status: Chronic Assessment and Plan: 12/05/23: Blood sugars ranging 222-402 Hgb A1C on 10/02/2023 was 7.8 Will repeat hemoglobin A1c today Accu checks AC/HS High-dose SSI ordered Lantus 32 units ordered daily Mealtime replacement 12 units t.i.d. with meals ordered hypoglycemic protocol in place Diabetic diet ordered 12/06/23: Blood sugars ranging 150-193 Hemoglobin A1c 8.2 Lantus changed to 45 units daily (4) DVT (deep venous thrombosis): Code(s): I82.409 - Acute embolism and thrombosis of unspecified deep veins of unspecified lower extremity Status: Chronic Assessment and Plan: 12/05/23: Continue Xarelto 20 mg p.o. daily 12/06/23: No change to current treatment plan (5) Pulmonary embolism: Code(s): I26.99 - Other pulmonary embolism without acute cor pulmonale Status: Chronic Assessment and Plan: See above (6) Low back pain: Code(s): M54.50 - Low back pain, unspecified Status: Chronic Assessment and Plan: 12/05/23: [place] 10/325 ordered q.6 hour which is patient's home dose 12/06/23: No change to current treatment Subjective Date/time seen: 12/06/23 11:48 Interval history: Interval history: This is a 68-year-old female with a significant past medical history of anxiety, breast cancer, chronic back pain, congestive heart failure, DVT, depression, irritable bowel syndrome, morbid obesity, kidney stone, sleep apnea, overactive bladder, peripheral neuropathy, PE, restless legs syndrome, type 2 diabetes mellitus, former smoker, history of cholecystectomy, bilateral mastectomy, right oophorectomy, umbilical hernia repair, history of spinal cord stimulator who presents to the hospital with hyperglycemia. Patient reports the following history of presenting illness. Patient states she was recently seen in the ED on 11/29/2023 tested positive for COVID and was diagnosed with a urinary tract infection. She was started on Augmentin which she has tolerated Augmentin in the past. Patient does have a long history of allergies to antibiotics. She states that she was given steroids for her acute illness which have increased her blood sugars. She states that her blood sugars have been other control the last few days prompting her to come to the hospital for further evaluation. Patient denies any fever, chills, vomiting, diarrhea, abdominal pain, chest pain. Patient endorses shortness of breath however she is on room air, nausea, and feels like her throat is closing up. She do
[2023-12-06 14:58] VITALS: BP 148/80; PULSE 72; RESP 20; TEMP 36.6; O2SAT 97
[2023-12-06 16:45] LABS: Glucose Point of Care 282 mg/dl (65-105)
[2023-12-06] MEDS: RIVAROXABAN 20 MG TABLET PO (17:27)
[2023-12-06] MEDS: INSULIN ASPART (*BKC) 100 UNITS/ML SUB-Q ×2 (17:28→20:13)
[2023-12-06] MEDS: rOPINIRole HCL 1 MG TABLET 5 MG PO (20:12)
[2023-12-06 21:25] LABS: Glucose Point of Care 365 mg/dl (65-105)
[2023-12-06 21:33] VITALS: BP 136/78; PULSE 71; RESP 18; TEMP 36.6; O2SAT 95
[2023-12-06] MEDS: INSULIN ASPART (*BKC) 100 UNITS/ML 10 UNITS SUB-Q (22:18)
[2023-12-06 22:22] LABS: Glucose Point of Care 394 mg/dl (65-105)
[2023-12-06 23:16] LABS: Glucose Point of Care 425 mg/dl (65-105)
[2023-12-06 23:40] VITALS: BP 112/61; PULSE 70; RESP 20; TEMP 36.3; O2SAT 99
--- NOTE | 2023-12-07 00:04 | ECG_ITS ---
Test Date: 2023-12-07 00:21:09 Measurements Intervals [place] Rate: 64 P: 18 WV: 143 QRS: 13 QRSD: 91 T: 32 QT: 408 QTc: 424 Interpretive Statements SINUS RHYTHM Compared to ECG 12/04/2023 15:18:43 NO SIGNIFICANT CHANGES Electronically Signed On 12-07-2023 09:56:28 CDT by Ricky Laboy M.D.
[2023-12-07 00:15] VITALS: O2SAT 98
[2023-12-07 00:32] LABS: Glucose Point of Care 403 mg/dl (65-105)
[2023-12-07] MEDS: INSULIN HUMAN REGULAR (*BKC) 100 UNITS/ML 15 UNITS SUB-Q (00:37)
[2023-12-07 01:24] LABS: Anion Gap 11 mmol/L (4-12); Blood Urea Nitrogen 26 mg/dL (7-17); Calcium 9.1 mg/dL (8.4-10.2); Carbon Dioxide 23 mmol/L (22-30); Chloride 100 mmol/L (98-107); Estimated CRCL calculation 93 ml/min; Estimated Glomerular Filt Rate > 60; Glucose 394 mg/dL (65-110); Lactic Acid Reflex 2.8 mmol/L (0.7-2.0); Magnesium 1.6 mg/dL (1.6-2.3); Phosphorus 3.6 mg/dL (2.5-4.5); Potassium 4.2 mmol/L (3.4-5.0); Sodium 134 mmol/L (137-145)
[2023-12-07 01:27] LABS: Basophils Percent Auto 0.2 % (0.2-1.2); Hemoglobin 13.2 g/dL (12.0-15.0); Immature Granulocyte Absolute 0.05 K/mm3 (0.00-0.031); Immature Granulocyte Percent A 0.5 % (0-0.5); Lymphocytes Absolute Auto 1.33 K/mm3 (0.9-3.2); Lymphocytes Percent Auto 13.1 % (18.3-44.2); Mean Corpuscular HGB Conc 32.2 g/dl (32-36); Mean Corpuscular Hemoglobin 29.1 pg (26-34); Mean Corpuscular Volume 90.3 fl (80-100); Mean Platelet Volume 10.2 fl (7.4-10.4); Monocytes Absolute Auto 0.5 K/mm3 (0.1-0.6); Neutrophils Absolute Auto 8.3 K/mm3 (1.3-6.7); Neutrophils Percent Auto 81.2 % (45.5-73.1); Platelet Count Result 286 k/mm3 (150-375); Red Blood Count 4.54 M/mm3 (4.2-5.4); Red Cell Distribution Width 13.8 % (11.5-14.5); White Blood Count 10.2 K/mm3 (4.5-10.0)
[2023-12-07 02:00] LABS: Glucose Point of Care 359 mg/dl (65-105)
[2023-12-07 04:12] LABS: Reflex Lactic Acid Yes or No Add Lactic
[2023-12-07 05:01] LABS: Basophils Percent Auto 0.1 % (0.2-1.2); Immature Granulocyte Absolute 0.08 K/mm3 (0.00-0.031); Immature Granulocyte Percent A 0.6 % (0-0.5); Lymphocytes Absolute Auto 2.02 K/mm3 (0.9-3.2); Lymphocytes Percent Auto 16.3 % (18.3-44.2); Mean Corpuscular HGB Conc 31.7 g/dl (32-36); Mean Corpuscular Hemoglobin 28.9 pg (26-34); Mean Corpuscular Volume 91.1 fl (80-100); Mean Platelet Volume 9.7 fl (7.4-10.4); Monocytes Absolute Auto 0.9 K/mm3 (0.1-0.6); Monocytes Percent Auto 7.4 % (2.6-8.5); Neutrophils Absolute Auto 9.4 K/mm3 (1.3-6.7); Neutrophils Percent Auto 75.6 % (45.5-73.1); Platelet Count Result 275 k/mm3 (150-375); Red Cell Distribution Width 13.9 % (11.5-14.5); White Blood Count 12.4 K/mm3 (4.5-10.0)
[2023-12-07 05:10] LABS: Lactic Acid 2.2 mmol/L (0.7-2.0)
[2023-12-07 05:11] LABS: Alanine Aminotransferase 21 U/L (6-35); Albumin Level 3.9 g/dL (3.5-5.1); Alkaline Phosphatase 60 U/L (38-126); Anion Gap 11 mmol/L (4-12); Aspartate Amino Transferase 24 U/L (14-36); Bilirubin,Total 0.6 mg/dL (0.2-1.3); Blood Urea Nitrogen 29 mg/dL (7-17); Calcium 9.1 mg/dL (8.4-10.2); Carbon Dioxide 26 mmol/L (22-30); Chloride 99 mmol/L (98-107); Estimated CRCL calculation 106 ml/min; Estimated Glomerular Filt Rate > 60; Glucose 291 mg/dL (65-110); Potassium 4.3 mmol/L (3.4-5.0); Sodium 136 mmol/L (137-145)
[2023-12-07 05:58] VITALS: BP 113/54; PULSE 58; RESP 20; TEMP 36.2; O2SAT 95
[2023-12-07 08:00] VITALS: BP 135/73; PULSE 65; RESP 20; TEMP 36.4; O2SAT 99
[2023-12-07 08:26] LABS: Glucose Point of Care 244 mg/dl (65-105)
--- NOTE | 2023-12-07 09:04 | P.PNIM_ITS ---
Progress Note: A&P Assessment and Plan (1) Acute hyperglycemia: Code(s): R73.9 - Hyperglycemia, unspecified Status: Acute Assessment and Plan: 12/05/23: * Initial blood sugar 216 on lab and increase to 402 * Hgb A1C on 10/02/2023 was 7.8 * Will repeat hemoglobin A1c today * Accu checks AC/HS * High-dose SSI ordered * Lantus 32 units ordered daily * Mealtime replacement 12 units t.i.d. with meals ordered * hypoglycemic protocol in place * Diabetic diet ordered 12/06/23: * Hemoglobin A1c 8.2 * Lantus increased to 42 units today * Continue with mealtime replacement 12 units t.i.d. * Continue with high-dose sliding scale * 1 time dose of Solu-Medrol was given today * Will continue to monitor blood sugars closely 12/07/23: * Blood sugars ranging 244-291 after the 1 time dose of Solu-Medrol yesterday * Lantus increased to 50 units daily * Mealtime replacement insulin increased to 20 units * Continue high-dose sliding scale insulin * monitor blood sugars closely (2) COVID-19: Code(s): U07.1 - COVID-19 Status: Acute Assessment and Plan: 12/05/23: * Patient was positive for COVID on 11/29/2023 * Continue supportive care * Patient reporting today that it feels like her throat is closing up and has had multiple allergies to antibiotics. She is on Augmentin for a urinary tract infection and has tolerated Augmentin in the past. Airway does appear crowded. We will get a CT of the soft tissues of the neck to rule out any angioedema. Will put Augmentin on hold for now. 12/06/23: * No change to current treatment plan (3) Type 2 diabetes mellitus: Code(s): E11.9 - Type 2 diabetes mellitus without complications Status: Chronic Assessment and Plan: 12/05/23: * Blood sugars ranging 222-402 * Hgb A1C on 10/02/2023 was 7.8 * Will repeat hemoglobin A1c today * Accu checks AC/HS * High-dose SSI ordered * Lantus 32 units ordered daily * Mealtime replacement 12 units t.i.d. with meals ordered * hypoglycemic protocol in place * Diabetic diet ordered 12/06/23: * Blood sugars ranging 150-193 * Hemoglobin A1c 8.2 * Lantus changed to 42 units daily 12/07/23: * Blood sugars ranging 244-91 * Lantus increased to 50 units * Mealtime replacement increased to 20 units t.i.d. with meals * Continue high-dose sliding scale insulin (4) DVT (deep venous thrombosis): Code(s): I82.409 - Acute embolism and thrombosis of unspecified deep veins of unspecified lower extremity Status: Chronic Assessment and Plan: 12/05/23: * Continue Xarelto 20 mg p.o. daily 12/06/23: * No change to current treatment plan (5) Pulmonary embolism: Code(s): I26.99 - Other pulmonary embolism without acute cor pulmonale Status: Chronic Assessment and Plan: See above (6) Low back pain: Code(s): M54.50 - Low back pain, unspecified Status: Chronic Assessment and Plan: 12/05/23: * [place] 10/325 ordered q.6 hour which is patient's home dose 12/06/23: * No change to current treatment Subjective Date/time seen: 12/07/23 09:04 Interval history: Interval history: This is a 68-year-old female with a significant past medical history of anxiety, breast cancer, chronic back pain, congestive heart failure, DVT, depression, irritable bowel syndrome, morbid obesity, kidney stone, sleep apnea, overactive bladder, peripheral neuropathy, PE, restless legs syndrome, type 2 diabetes mellitus, former smoker, history of cholecystectomy, bilateral mast
--- NOTE | 2023-12-07 09:04 | PM.IMPN ---
Progress Note: A&P Assessment and Plan (1) Acute hyperglycemia: Code(s): R73.9 - Hyperglycemia, unspecified Status: Acute Assessment and Plan: 12/05/23: Initial blood sugar 216 on lab and increase to 402 Hgb A1C on 10/02/2023 was 7.8 Will repeat hemoglobin A1c today Accu checks AC/HS High-dose SSI ordered Lantus 32 units ordered daily Mealtime replacement 12 units t.i.d. with meals ordered hypoglycemic protocol in place Diabetic diet ordered 12/06/23: Hemoglobin A1c 8.2 Lantus increased to 42 units today Continue with mealtime replacement 12 units t.i.d. Continue with high-dose sliding scale 1 time dose of Solu-Medrol was given today Will continue to monitor blood sugars closely 12/07/23: Blood sugars ranging 244-291 after the 1 time dose of Solu-Medrol yesterday Lantus increased to 50 units daily Mealtime replacement insulin increased to 20 units Continue high-dose sliding scale insulin monitor blood sugars closely (2) COVID-19: Code(s): U07.1 - COVID-19 Status: Acute Assessment and Plan: 12/05/23: Patient was positive for COVID on 11/29/2023 Continue supportive care Patient reporting today that it feels like her throat is closing up and has had multiple allergies to antibiotics. She is on Augmentin for a urinary tract infection and has tolerated Augmentin in the past. Airway does appear crowded. We will get a CT of the soft tissues of the neck to rule out any angioedema. Will put Augmentin on hold for now. 12/06/23: No change to current treatment plan (3) Type 2 diabetes mellitus: Code(s): E11.9 - Type 2 diabetes mellitus without complications Status: Chronic Assessment and Plan: 12/05/23: Blood sugars ranging 222-402 Hgb A1C on 10/02/2023 was 7.8 Will repeat hemoglobin A1c today Accu checks AC/HS High-dose SSI ordered Lantus 32 units ordered daily Mealtime replacement 12 units t.i.d. with meals ordered hypoglycemic protocol in place Diabetic diet ordered 12/06/23: Blood sugars ranging 150-193 Hemoglobin A1c 8.2 Lantus changed to 42 units daily 12/07/23: Blood sugars ranging 244-91 Lantus increased to 50 units Mealtime replacement increased to 20 units t.i.d. with meals Continue high-dose sliding scale insulin (4) DVT (deep venous thrombosis): Code(s): I82.409 - Acute embolism and thrombosis of unspecified deep veins of unspecified lower extremity Status: Chronic Assessment and Plan: 12/05/23: Continue Xarelto 20 mg p.o. daily 12/06/23: No change to current treatment plan (5) Pulmonary embolism: Code(s): I26.99 - Other pulmonary embolism without acute cor pulmonale Status: Chronic Assessment and Plan: See above (6) Low back pain: Code(s): M54.50 - Low back pain, unspecified Status: Chronic Assessment and Plan: 12/05/23: [place] 10/325 ordered q.6 hour which is patient's home dose 12/06/23: No change to current treatment Subjective Date/time seen: 12/07/23 09:04 Interval history: Interval history: This is a 68-year-old female with a significant past medical history of anxiety, breast cancer, chronic back pain, congestive heart failure, DVT, depression, irritable bowel syndrome, morbid obesity, kidney stone, sleep apnea, overactive bladder, peripheral neuropathy, PE, restless legs syndrome, type 2 diabetes mellitus, former smoker, history of cholecystectomy, bilateral mastectomy, right oophorectomy, umbilical hernia repair, history of spinal cord stimulator who presents to the hospital with hyperglycemia. Patient reports the following history of presenting illness. Patient states she was recently seen in the ED on 11/29/2023 tested positive for COVID and was diagnosed with a urinary tract infection. She was started on Augmentin which she has tolerated Augmentin in the past. Patient does have a long history of allergies to antibiotics. She states th
[2023-12-07] MEDS: INSULIN HUMAN REGULAR (*BKC) 100 UNITS/ML 20 UNITS SUB-Q ×2 (09:15→11:56)
[2023-12-07] MEDS: INSULIN ASPART (*BKC) 100 UNITS/ML SUB-Q ×2 (09:15→11:55)
[2023-12-07] MEDS: INSULIN GLARGINE (*BKC) 100 UNITS/ML 50 UNITS SUB-Q (09:16)
[2023-12-07] MEDS: guaiFENesin 12 HR 600 MG TABCR 1200 MG PO (09:21)
[2023-12-07] MEDS: GABAPENTIN 300 MG CAPSULE PO ×2 (09:21→12:01)
[2023-12-07] MEDS: AMOXICILLIN/CLAVULANATE K 875-125 MG TAB 1 TABLET PO (09:21)
[2023-12-07] MEDS: oxyBUTYnin CHLORIDE XL 5 MG TAB.ER.24 15 MG PO (09:21)
[2023-12-07] MEDS: ONDANSETRON INJ 4 MG/2 ML VIAL IV PUSH (10:06)
[2023-12-07 11:33] LABS: Glucose Point of Care 270 mg/dl (65-105)
[2023-12-07 13:33] LABS: Glucose Point of Care 251 mg/dl (65-105)
--- NOTE | 2023-12-07 13:39 | PM.DS ---
DS: Admitting Diagnosis Discharge Date 12/07/23 Admitting Diagnosis Acute hyperglycemia COVID-19 Type 2 diabetes mellitus DVT Pulmonary embolism Low back pain DS: Discharge Diagnosis Discharge Diagnosis (1) Acute hyperglycemia: Code(s): R73.9 - Hyperglycemia, unspecified Status: Acute (2) COVID-19: Code(s): U07.1 - COVID-19 Status: Acute (3) Type 2 diabetes mellitus: Code(s): E11.9 - Type 2 diabetes mellitus without complications Status: Chronic (4) DVT (deep venous thrombosis): Code(s): I82.409 - Acute embolism and thrombosis of unspecified deep veins of unspecified lower extremity Status: Chronic (5) Pulmonary embolism: Code(s): I26.99 - Other pulmonary embolism without acute cor pulmonale Status: Chronic (6) Low back pain: Code(s): M54.50 - Low back pain, unspecified Status: Chronic DS: Summary Hospital Course Reason for hospitalization: Acute hyperglycemia COVID-19 Type 2 diabetes mellitus DVT Pulmonary embolism Low back pain Hospital Course: This is a 68-year-old female with a significant past medical history of anxiety, breast cancer, chronic back pain, congestive heart failure, DVT, depression, irritable bowel syndrome, morbid obesity, kidney stone, sleep apnea, overactive bladder, peripheral neuropathy, PE, restless legs syndrome, type 2 diabetes mellitus, former smoker, history of cholecystectomy, bilateral mastectomy, right oophorectomy, umbilical hernia repair, history of spinal cord stimulator who presents to the hospital with hyperglycemia. Patient reports the following history of presenting illness. Patient states she was recently seen in the ED on 11/29/2023 tested positive for COVID and was diagnosed with a urinary tract infection. She was started on Augmentin which she has tolerated Augmentin in the past. Patient does have a long history of allergies to antibiotics. She states that she was given steroids for her acute illness which have increased her blood sugars. She states that her blood sugars have been other control the last few days prompting her to come to the hospital for further evaluation. Patient denies any fever, chills, vomiting, diarrhea, abdominal pain, chest pain. Patient endorses shortness of breath however she is on room air, nausea, and feels like her throat is closing up. She does have history of angioedema in the past to a few different medications. Workup in the hospital included a chest x-ray which was negative. Initial labs showed a sodium of 136, chloride 97, BUN 19, blood sugars ranging 216-402, beta hydroxybutyrate 0.14. UA was obtained which showed 3+ glucose, trace ketones, otherwise normal. Last hemoglobin A1c was 7.8 on 10/02/2023. She was noted to be positive for COVID on 11/29/2023. Last echo was reviewed 12/11/2021 and shown normal LV systolic function with an estimated EF of 60-65%, grade 1 diastolic dysfunction, moderate aortic valve sclerosis. Patient had 1L LR, insulin 10 units IVP, potassium 40 meq while in the ER. Patient was still complaining of difficulty breathing and felt like her airway was narrow. CT of the neck chest and abdomen showed enlargement of bilateral lingual and palatine tonsils without evidence of abscess, no acute cardiopulmonary disease. She was given a dose of Solu-Medrol 125 mg IV once which did improve her symptoms. We also did a strep test which was negative. Her insulin was adjusted throughout her stay. She will need to finish her course of Augmentin for her UTI. She is stable for discharge at this time. She will need follow-up with her primary care physician in 1 week. Final diagnosis: Acute hyperglycemia, COVID, acute urinary tract infection Status at Discharge Cognitive/behavioral status at discharge: Alert oriented x4 Functional status at discharge: independent ambulation Overall status at discharge: patient is progressing back to baseline Time Spent with Patient
[2023-12-07] MEDS: HYDROcodone/acetaminophen (*CRX) 10-325 MG TABLET 1 TAB PO (13:55)
--- NOTE | 2023-12-07 17:03 | PC.NURSE ---
On 12/07/23, the FISH FARM LABORER, RETA PÉREZ, provided care and completed [employer] documentation on this patient. I have reviewed the [employer] FARM [employer]ORER's documentation and agree with the findings.
== END 2023-12-07 16:20 | disposition home or self-care (01) | DRG 637 ==
LOC: ANHED 04:42 → ANH3MEDSUR 05:31
PROVIDERS: Admitting Provider Internal Medicine; Emergency Provider Emergency Medicine; PCP Internal Medicine; Visit Provider Nurse Practitioner Acute Care
DX: E11.65 Type 2 diabetes mellitus with hyperglycemia (principal); U07.1 COVID-19; N39.0 Urinary tract infection, site not specified; Z68.45 Body mass index [BMI] 70 or greater, adult; T38.0X5A Adverse effect of glucocorticoids and synthetic analogues, initial encounter; I50.9 Heart failure, unspecified; E11.42 Type 2 diabetes mellitus with diabetic polyneuropathy; E66.01 Morbid (severe) obesity due to excess calories; E04.1 Nontoxic single thyroid nodule; K58.9 Irritable bowel syndrome, unspecified; N32.81 Overactive bladder; M54.9 Dorsalgia, unspecified; G89.29 Other chronic pain; G47.33 Obstructive sleep apnea (adult) (pediatric); G25.81 Restless legs syndrome; F41.9 Anxiety disorder, unspecified; F32.A Depression, unspecified; Z96.651 Presence of right artificial knee joint; Z79.01 Long term (current) use of anticoagulants; Z79.4 Long term (current) use of insulin; Z86.718 Personal history of other venous thrombosis and embolism; Z85.3 Personal history of malignant neoplasm of breast; Z87.442 Personal history of urinary calculi; Z96.82 Presence of neurostimulator; Z87.891 Personal history of nicotine dependence
CPT/HCPCS: 36415; 70491; 71045; 71046; 71260; 74160; 80048; 80053; 80061; 81001; 82010; 82948; 83036; 83605; 83735; 83880; 84100; 84443; 85025; 87081; 93005; 94002; 96361; 96374; 99284; 99285; A9270; J1100; J1815; J2405; J2919; J7120; Q9967

== ENCOUNTER 2023-12-12 18:35 | Emergency (ER) | payer MEDICARE, MEDICAID, SELFPAY ==
--- NOTE | 2023-12-12 18:41 | ED.FEMALEGU ---
HPI - Female Genitourinary General Chief complaint: Urogenital-Female Stated complaint: UTI SYMPTOMS Source: patient and RN notes reviewed Mode of arrival: ambulatory Limitations: no limitations History of Present Illness HPI Narrative: Patient is a 68-year-old female who presents to the [facility] with complaints of urinary incontinence and pelvic pressure. Patient states that the symptoms are consistent with prior UTI she has had in the past. She states that she was recently hospitalized and diagnosed with a urinary tract infection. She finished Augmentin 4 days ago. She denies hematuria, dysuria, or recent fever. She states that she usually does not have dysuria or hematuria with her previous UTIs. Patient denies abdominal pain, nausea, vomiting, diarrhea. Related Data Home Medications Medication Instructions Recorded Confirmed exemestane 25 mg tablet 25 mg PO HS 01/06/20 12/05/23 insulin glargine 100 unit/mL (3 32 unit subcut QAM 01/06/20 12/05/23 mL) subcutaneous pen (Lantus Solostar U-100 Insulin) ropinirole 5 mg tablet 5 mg PO HS 01/06/20 12/05/23 insulin lispro 100 unit/mL 28 unit subcut TID 03/19/22 12/05/23 subcutaneous pen (Humalog KwikPen (U-100) Insulin) oxybutynin chloride 15 mg 15 mg PO DAILY 11/06/22 12/05/23 tablet,extended release 24 hr gabapentin 300 mg capsule 300 mg PO TID 06/25/23 12/05/23 methenamine hippurate 1 gram tablet g 12/12/23 12/12/23 Allergies Allergy/AdvReac Type Severity Reaction Status Date / Time ceftriaxone Allergy Severe SOB Verified 12/12/23 19:02 cephalexin Allergy Severe Difficulty Verified 12/12/23 19:02 Breathing Cephalosporins Allergy Severe Difficulty Verified 12/12/23 19:02 Breathing lorazepam Allergy Severe Swelling Verified 12/12/23 19:02 trazodone Allergy Severe Swelling Verified 12/12/23 19:02 of Lip/Tongue/Throat metoclopramide Allergy Intermediate Other Verified 12/12/23 19:02 chlorhexidine Allergy Mild BLISTERING Verified 12/12/23 19:02 levofloxacin Allergy Mild Hives / Verified 12/12/23 19:02 Red Face ketorolac Allergy Itching Verified 12/12/23 19:02 latex Allergy Rash Verified 12/12/23 19:02 meropenem Allergy Rash Verified 12/12/23 19:02 nitrofurantoin Allergy Itching Verified 12/12/23 19:02 sulfamethoxazole Allergy Itching Verified 12/12/23 19:02 [From Sulfamethoxazole-Trimethoprim] trimethoprim Allergy Itching Verified 12/12/23 19:02 [From Sulfamethoxazole-Trimethoprim] oxycodone AdvReac Mild Vomiting Verified 12/12/23 19:02 amlodipine AdvReac Swelling Verified 12/12/23 19:02 lisinopril AdvReac Swelling Verified 12/12/23 19:02 pregabalin AdvReac Swelling Verified 12/05/23 01:48 reslizumab AdvReac Unknown Verified 12/12/23 19:02 Review of Systems Review of Systems: CONSTITUTIONAL: Denies fever, chills, or sweats. EYES: Denies visual changes, redness, or discharge. ENT: Denies otalgia and sore throat CARDIOVASCULAR: Denies chest pain, palpitations, or edema. RESPIRATORY: Denies cough or dyspnea. GASTROINTESTINAL: Denies abdominal pain, nausea, vomiting, or diarrhea. GENITOURINARY: Denies dysuria or hematuria. Reports incontinence and pelvic pressure. SKIN: Denies rash or itching. MUSCULOSKELETAL: Denies back pain, joint pain, or myalgia. NEUROLOGIC: Denies headache, numbness, or weakness. Pertinent positives per HPI. [facility] Past Medical History Medical History Anxiety Breast cancer Chronic anticoagulation Chronic back pain Collagenous colitis Congestive heart failure COVID-19 Deep venous thrombosis Depression Irritable bowel syndrome Kidney stone Morbid obesity Multiple thyroid nodules Obstructive sleep apnea on CPAP Overactive bladder Peripheral neuropathy Pulmonary embolism positive for coagulation workup Restless leg syndrome Type 2 diabetes mellitus Surgical History Surgical History (Reviewed 12/12/23 @ 1
[2023-12-12 18:54] VITALS: BP 166/90; PULSE 83; RESP 16; TEMP 36.5; O2SAT 100
[2023-12-12 19:03] LABS: EDUAAPPEAR Clear; EDUABILI Negative; EDUABLOOD Trace; EDUACOLOR1 Yellow; EDUAGLUCOSE Negative; EDUAKETONE Negative; EDUALEUKO Negative; EDUANITRATE Negative; EDUAPH 5.5; EDUAPROTEIN Negative; EDUAUROBILI 0.2
== END 2023-12-12 19:09 | disposition home or self-care (01) ==
PROVIDERS: Emergency Provider Nurse Practitioner; PCP Internal Medicine
DX: R32 Unspecified urinary incontinence (principal); Z87.891 Personal history of nicotine dependence; I50.9 Heart failure, unspecified; E66.01 Morbid (severe) obesity due to excess calories; Z68.43 Body mass index [BMI] 50.0-59.9, adult; G47.33 Obstructive sleep apnea (adult) (pediatric); E11.42 Type 2 diabetes mellitus with diabetic polyneuropathy; Z79.4 Long term (current) use of insulin; G25.81 Restless legs syndrome; Z86.711 Personal history of pulmonary embolism; Z86.718 Personal history of other venous thrombosis and embolism; Z85.3 Personal history of malignant neoplasm of breast; Z86.16 Personal history of COVID-19; Z90.13 Acquired absence of bilateral breasts and nipples; Z96.651 Presence of right artificial knee joint
CPT/HCPCS: 81003; 87086; 87088; 99213; G0463

== ENCOUNTER 2023-12-18 13:28 | Outpatient (RCR) | payer MEDICARE, MEDICAID, SELFPAY ==
--- NOTE | 2023-12-18 17:04 | OPREHPOC ---
Outpatient Therapy Plan of Care This is a Multidisciplinary Plan of Care that may contain components documented by all disciplines (PT, OT, and ST.) PT Problem 1 PT Problem #1 Knowledge Deficit PT Goal 1 Goal / Goal Update [place] with HEP Target Visit 4 PT Problem 2 PT Problem #2 Pain PT Goal 1 Goal / Goal Update Report pain less than 4/10 with supine to sit in AM Target Visit 8 PT Problem 3 PT Problem #3 Impaired Strength PT Goal 1 Goal / Goal Update Improve marilyn hip abduction strength to 4/5 to improve lateral stability with gait and ADLs Target Visit 8 PT Goal 2 Goal / Goal Update Demonstrate ability to perform and maintain pelvic tilt during supine activity 9/10 times for improved core stabilization Target Visit 8 PT Problem 4 PT Problem #4 Impaired Gait PT Goal 1 Goal / Goal Update Ambulate with even stride length bilaterally Target Visit 8 PT Problem 5 PT Problem #5 Impaired Range of Motion PT Goal 1 Goal / Goal Update Demonstrate 45 degrees marilyn hip abduction to reduce hip capsular restriction with ADLs Target Visit 8
--- NOTE | 2023-12-18 17:05 | PTOPEVAL1 ---
Assessment and note entered by Girish Colin, PT Evaluation Information Assessment Status Evaluation ICD-10 Condition Codes (PT) Pain in low back M54.50,M54.16 Onset 2017 Subjective Information Reports that she has a pain stimulator but it is not on because it was not helping. Mornings are always the worst and by the end of the day she is hurting as well. She is having a lot of difficulty with home chores and tasks and has a caregiver to help her. Left side of back is worse than right. Reported Pain Level Pain Score 5: Self Report Assessment PT Clinical Summary Patient presenting with signs and symptoms consistent with lumbar arthritis and stenosis. Hip and core weakness noted with altered gait pattern . Patient will benefit from skilled therapy to address these deficits for care home pain relief. Plan of Care Interventions Aquatic Therapy,Gait Training,Manual Therapy,Neuro Re-education,Therapeutic Activities,Therapeutic Exercise PT Services Indicated Yes Treatment Frequency and 2x/week for 8 visits Duration These treatments will address the objective and functional deficits as defined above. The patient will be advanced safely and appropriately in order for the patient to progress towards his/her prior level of function. Additional exercises will be introduced and as well as a comprehensive home exercise program upon discharge, if needed, ?to ensure carryover of functional gains achieved in the clinic. This treatment plan has been reviewed and agreement upon by the patient.
--- NOTE | 2024-01-03 09:33 | PCPTNOTE ---
Pt cancelled appt. due to family emergency.
--- NOTE | 2024-01-05 09:35 | PCPTNOTE ---
Pt no showed visit today but had family emergency earlier this week.
--- NOTE | 2024-01-08 15:25 | PCPTNOTE ---
Called patient due to no show this date and left a message letting her know her next scheduled appointment is January 09 at 12:30pm.
--- NOTE | 2024-01-10 12:52 | PCPTNOTE ---
Pt NS for 3rd visit today. Pt was called and LM for cancelling remaining appts.
--- NOTE | 2024-01-29 15:16 | PCPTNOTE ---
PHYSICAL THERAPY DISCHARGE 01-29-24 Joan Man, JACKAROO-BC Mrs. Marques received the PT evaluation on 12-18-23 for low back pain. She called and canceled 1 and did not show for 3 appointments. Therefore, she will be discharged from PT. The goals were not addressed.
== END 2024-01-11 11:59 | disposition home or self-care (01) ==
LOC: ANHPT 13:28
PROVIDERS: PCP Internal Medicine
DX: M54.16 Radiculopathy, lumbar region (principal)
CPT/HCPCS: 97110; 97140; 97161

== ENCOUNTER 2024-01-07 02:17 | Emergency (ER) | payer MEDICARE, SELFPAY ==
--- NOTE | ~2024-01-07 | CT_ITS ---
EXAMINATION: CT abdomen pelvis wo con DATE: 01/07/2024 04:16 INDICATION: Left flank pain TECHNIQUE: Computed tomography (CT) of the abdomen and pelvis was performed without intravenous contr ast. Automated exposure control and iterative reconstruction technique were employed. The dose-length product was 1504.84 mGy-cm. COMPARISON: 09/11/2023 FINDINGS: Lung bases are clear. Heart size is normal. No pericardial or pleural effusion. Cholecystectomy clips the gallbladder fossa. Liver, spleen, pancreas, right kidney and bilateral adrenal glands are normal . 2 cm right renal cyst. No urolithiasis. Bladder, uterus and bilateral adnexa are unremarkable. Post operative change prior ventral hernia mesh repair in the pelvis. Mild scattered colonic diverticulosi s without adjacent from trace stranding to suggest diverticulitis. Small bowel and appendix are biju l. No free intraperitoneal gas or fluid. No pathologically enlarged abdominal or pelvic lymphadenopat hy. Severe lower thoracic and mild lumbar spondylosis. Osteitis pubis and color symmetric severe bila teral sacroiliitis. Spinal stimulator at the flank with lead extending into the central canal level o f a T8 laminectomy. IMPRESSION: 1. No acute intra-abdominal/pelvic process. Reviewed, dictated and finalized at location A.
[2024-01-07 02:18] VITALS: BP 155/66; PULSE 87; RESP 18; TEMP 36.4; O2SAT 97
[2024-01-07] MEDS: HYDROmorphone HCL INJ (*CRX) 1 MG/ML SYR IV PUSH ×2 (05:13→07:07)
[2024-01-07 05:18] LABS: Basophils Percent Auto 0.4 % (0.2-1.2); Eosinophils Absolute Auto 0.2 K/mm3 (0-0.3); Eosinophils Percent Auto 2.4 % (0-4.4); Hematocrit 43.1 % (37.0-47.0); Hemoglobin 13.8 g/dL (12.0-15.0); Immature Granulocyte Absolute 0.04 K/mm3 (0.00-0.031); Immature Granulocyte Percent A 0.4 % (0-0.5); Lymphocytes Absolute Auto 2.71 K/mm3 (0.9-3.2); Lymphocytes Percent Auto 26.9 % (18.3-44.2); Mean Corpuscular Hemoglobin 29.3 pg (26-34); Mean Corpuscular Volume 91.5 fl (80-100); Mean Platelet Volume 9.4 fl (7.4-10.4); Monocytes Absolute Auto 0.8 K/mm3 (0.1-0.6); Monocytes Percent Auto 8.2 % (2.6-8.5); Neutrophils Absolute Auto 6.2 K/mm3 (1.3-6.7); Neutrophils Percent Auto 61.7 % (45.5-73.1); Platelet Count Result 259 k/mm3 (150-375); Red Blood Count 4.71 M/mm3 (4.2-5.4); Red Cell Distribution Width 14.4 % (11.5-14.5); White Blood Count 10.1 K/mm3 (4.5-10.0)
[2024-01-07 05:20] VITALS: BP 125/60; PULSE 77; RESP 15; O2SAT 99
[2024-01-07 05:20] LABS: Add Urine Microscopic? NO; Appearance Urine Clear (Clear); Bilirubin Urine Negative (Negative); Blood Urine Negative (Negative); Color Urine Yellow (Yellow); Glucose Urine UA Trace mg/dL (Negative); Ketones Urine Negative (Negative); Leukocyte Esterase Ur Negative LEU/UL (Negative); Nitrate Urine Negative (Negative); Protein Urine Negative (Negative); Specific Grav Ur 1.019 (1.001-1.035); Urobilinogen Urine 0.2 mg/dL (<2.0); pH Urine 5.5 (5.0-9.0)
[2024-01-07 05:30] LABS: Alanine Aminotransferase 27 U/L (6-35); Albumin Level 4.2 g/dL (3.5-5.1); Alkaline Phosphatase 75 U/L (38-126); Anion Gap 8 mmol/L (4-12); Aspartate Amino Transferase 25 U/L (14-36); Bilirubin,Total 0.6 mg/dL (0.2-1.3); Blood Urea Nitrogen 20 mg/dL (7-17); Calcium 9.7 mg/dL (8.4-10.2); Carbon Dioxide 33 mmol/L (22-30); Chloride 97 mmol/L (98-107); Estimated CRCL calculation 82 ml/min; Estimated Glomerular Filt Rate > 60; Glucose 206 mg/dL (65-110); Lipase 62 U/L (23-300); Sodium 138 mmol/L (137-145)
--- NOTE | 2024-01-07 05:39 | ED.GENADULT ---
HPI - General Adult General Chief complaint: Back Pain/Injury Stated complaint: left lower back pain Time Seen by Provider: 01/07/24 04:37 History of Present Illness HPI narrative: Patient is a 68-year-old female who presents emergency department with chief complaint of flank pain. Patient reports that she started having pain in the left flank area reports the pain is sharp patient reports the area is similar to where her stimulator is but the stimulator is turned off patient reports no drainage or redness patient reports that she was recently treated for UTI Related Data Home Medications Medication Instructions Recorded Confirmed exemestane 25 mg tablet 25 mg PO HS 01/06/20 12/05/23 insulin glargine 100 unit/mL (3 32 unit subcut QAM 01/06/20 12/05/23 mL) subcutaneous pen (Lantus Solostar U-100 Insulin) ropinirole 5 mg tablet 5 mg PO HS 01/06/20 12/05/23 insulin lispro 100 unit/mL 28 unit subcut TID 03/19/22 12/05/23 subcutaneous pen (Humalog KwikPen (U-100) Insulin) oxybutynin chloride 15 mg 15 mg PO DAILY 11/06/22 12/05/23 tablet,extended release 24 hr gabapentin 300 mg capsule 300 mg PO TID 06/25/23 12/05/23 methenamine hippurate 1 gram tablet g 12/12/23 12/12/23 Allergies Allergy/AdvReac Type Severity Reaction Status Date / Time ceftriaxone Allergy Severe SOB Verified 12/12/23 19:02 cephalexin Allergy Severe Difficulty Verified 12/12/23 19:02 Breathing Cephalosporins Allergy Severe Difficulty Verified 12/12/23 19:02 Breathing lorazepam Allergy Severe Swelling Verified 12/12/23 19:02 trazodone Allergy Severe Swelling Verified 12/12/23 19:02 of Lip/Tongue/Throat metoclopramide Allergy Intermediate Other Verified 12/12/23 19:02 chlorhexidine Allergy Mild BLISTERING Verified 12/12/23 19:02 levofloxacin Allergy Mild Hives / Verified 12/12/23 19:02 Red Face ketorolac Allergy Itching Verified 12/12/23 19:02 latex Allergy Rash Verified 12/12/23 19:02 meropenem Allergy Rash Verified 12/12/23 19:02 nitrofurantoin Allergy Itching Verified 12/12/23 19:02 sulfamethoxazole Allergy Itching Verified 12/12/23 19:02 [From Sulfamethoxazole-Trimethoprim] trimethoprim Allergy Itching Verified 12/12/23 19:02 [From Sulfamethoxazole-Trimethoprim] oxycodone AdvReac Mild Vomiting Verified 12/12/23 19:02 amlodipine AdvReac Swelling Verified 12/12/23 19:02 lisinopril AdvReac Swelling Verified 12/12/23 19:02 pregabalin AdvReac Swelling Verified 12/05/23 01:48 reslizumab AdvReac Unknown Verified 12/12/23 19:02 Review of Systems Review of Systems: A 10 system review of systems was completed on the patient and is negative except for what is stated in the HPI. Nursing and ancillary documentation was reviewed. [facility] Past Medical History Medical History Anxiety Breast cancer Chronic anticoagulation Chronic back pain Collagenous colitis Congestive heart failure COVID-19 Deep venous thrombosis Depression Irritable bowel syndrome Kidney stone Morbid obesity Multiple thyroid nodules Obstructive sleep apnea on CPAP Overactive bladder Peripheral neuropathy Pulmonary embolism positive for coagulation workup Restless leg syndrome Type 2 diabetes mellitus Surgical History Surgical History History of bilateral mastectomy History of cardiac catheterization Reportedly negative for coronary artery disease. History of cholecystectomy History of colonoscopy History of cystoscopy History of esophagogastroduodenoscopy (EGD) History of right oophorectomy History of total right knee replacement History of umbilical hernia repair History of ureter stent Status post insertion of spinal cord stimulator Family History Family History Mother Diabetes mellitus Acute myocardial infarction Ce
[2024-01-07] MEDS: LIDOCAINE 5% PATCH 1 PATCH TRANSDERM (07:07)
[2024-01-07] MEDS: ORPHENADRINE CITRATE 100 MG TABLET.ER PO (07:07)
[2024-01-07 07:20] VITALS: BP 128/58; PULSE 72; RESP 15; O2SAT 94
[2024-01-07 08:05] VITALS: BP 133/91; PULSE 71; RESP 18; TEMP 37; O2SAT 97
== END 2024-01-07 08:16 | disposition home or self-care (01) ==
PROVIDERS: Emergency Provider Emergency Medicine; PCP Internal Medicine
DX: M54.50 Low back pain, unspecified (principal); F41.9 Anxiety disorder, unspecified; Z85.3 Personal history of malignant neoplasm of breast; Z79.01 Long term (current) use of anticoagulants; I50.9 Heart failure, unspecified; Z86.718 Personal history of other venous thrombosis and embolism; F32.A Depression, unspecified; Z87.442 Personal history of urinary calculi; G47.30 Sleep apnea, unspecified; E11.9 Type 2 diabetes mellitus without complications; Z79.4 Long term (current) use of insulin
CPT/HCPCS: 36415; 74176; 80053; 81003; 83690; 85025; 96374; 96376; 99284; A9270; J1170

== ENCOUNTER 2024-01-14 12:38 | Emergency (ER) | payer MEDICARE, SELFPAY ==
--- NOTE | 2024-01-14 12:47 | ED.UPPEXIN ---
HPI - Extremity Injury (Upper) General Chief Complaint: Extremity Injury, Upper Stated Complaint: R WRIST PAIN Time Seen by Provider: 01/14/24 12:58 Source: patient and RN notes reviewed Mode of arrival: ambulatory Limitations: no limitations History of Present Illness HPI narrative: 68 year old female presents with concern for right wrist pain, swelling. She reports she had a hematoma several months ago that resolved but since then she has been having pain. She reports a swollen area on the top of her wrist that is tender. She denies redness, warmth. She denies decreased strength, sensation, range of motion in the wrist or digits. MD complaint: injury to: right and wrist Related Data Home Medications Medication Instructions Recorded Confirmed exemestane 25 mg tablet 25 mg PO HS 01/06/20 12/05/23 insulin glargine 100 unit/mL (3 32 unit subcut QAM 01/06/20 12/05/23 mL) subcutaneous pen (Lantus Solostar U-100 Insulin) ropinirole 5 mg tablet 5 mg PO HS 01/06/20 12/05/23 insulin lispro 100 unit/mL 28 unit subcut TID 03/19/22 12/05/23 subcutaneous pen (Humalog KwikPen (U-100) Insulin) oxybutynin chloride 15 mg 15 mg PO DAILY 11/06/22 12/05/23 tablet,extended release 24 hr gabapentin 300 mg capsule 300 mg PO TID 06/25/23 12/05/23 methenamine hippurate 1 gram tablet g 12/12/23 12/12/23 Allergies Allergy/AdvReac Type Severity Reaction Status Date / Time ceftriaxone Allergy Severe SOB Verified 12/12/23 19:02 cephalexin Allergy Severe Difficulty Verified 12/12/23 19:02 Breathing Cephalosporins Allergy Severe Difficulty Verified 12/12/23 19:02 Breathing lorazepam Allergy Severe Swelling Verified 12/12/23 19:02 trazodone Allergy Severe Swelling Verified 12/12/23 19:02 of Lip/Tongue/Throat metoclopramide Allergy Intermediate Other Verified 12/12/23 19:02 chlorhexidine Allergy Mild BLISTERING Verified 12/12/23 19:02 levofloxacin Allergy Mild Hives / Verified 12/12/23 19:02 Red Face ketorolac Allergy Itching Verified 12/12/23 19:02 latex Allergy Rash Verified 12/12/23 19:02 meropenem Allergy Rash Verified 12/12/23 19:02 nitrofurantoin Allergy Itching Verified 12/12/23 19:02 sulfamethoxazole Allergy Itching Verified 12/12/23 19:02 [From Sulfamethoxazole-Trimethoprim] trimethoprim Allergy Itching Verified 12/12/23 19:02 [From Sulfamethoxazole-Trimethoprim] oxycodone AdvReac Mild Vomiting Verified 12/12/23 19:02 amlodipine AdvReac Swelling Verified 12/12/23 19:02 lisinopril AdvReac Swelling Verified 12/12/23 19:02 pregabalin AdvReac Swelling Verified 12/05/23 01:48 reslizumab AdvReac Unknown Verified 12/12/23 19:02 Review of Systems Review of Systems: CONSTITUTIONAL: Denies malaise, chills, sweats, or fever. SKIN: Denies rash or itching, open skin, laceration, abrasion, redness, warmth MUSCULOSKELETAL: Reports right wrist pain and swelling NEUROLOGIC: Denies numbness, weakness All systems reviewed & are unremarkable except as noted in HPI and below PMFSH Past Medical History Medical History Anxiety Breast cancer Chronic anticoagulation Chronic back pain Collagenous colitis Congestive heart failure COVID-19 Deep venous thrombosis Depression Irritable bowel syndrome Kidney stone Morbid obesity Multiple thyroid nodules Obstructive sleep apnea on CPAP Overactive bladder Peripheral neuropathy Pulmonary embolism positive for coagulation workup Restless leg syndrome Type 2 diabetes mellitus Surgical History Surgical History History of bilateral mastectomy History of cardiac catheterization Reportedly negative for coronary artery disease. History of cholecystectomy History of colonoscopy History of cystoscopy History of esophagogastroduodenoscopy (EGD) History of right oophorectomy History of total right knee replacement History
[2024-01-14 13:00] VITALS: BP 145/86; PULSE 73; RESP 16; TEMP 36.5; O2SAT 100
== END 2024-01-14 13:17 | disposition home or self-care (01) ==
PROVIDERS: Emergency Provider Nurse Practitioner; PCP Internal Medicine
DX: G89.29 Other chronic pain (principal); M25.531 Pain in right wrist; E66.01 Morbid (severe) obesity due to excess calories; Z68.43 Body mass index [BMI] 50.0-59.9, adult; G47.33 Obstructive sleep apnea (adult) (pediatric); E11.42 Type 2 diabetes mellitus with diabetic polyneuropathy; Z79.4 Long term (current) use of insulin; G25.81 Restless legs syndrome; I50.9 Heart failure, unspecified; Z85.3 Personal history of malignant neoplasm of breast; Z90.13 Acquired absence of bilateral breasts and nipples; Z86.16 Personal history of COVID-19; Z86.718 Personal history of other venous thrombosis and embolism; Z86.711 Personal history of pulmonary embolism; Z96.651 Presence of right artificial knee joint; Z96.82 Presence of neurostimulator; Z96.0 Presence of urogenital implants; Z87.891 Personal history of nicotine dependence
CPT/HCPCS: 99212; G0463

== ENCOUNTER 2024-01-28 19:39 | Emergency (ER) | payer MEDICARE, SELFPAY ==
--- NOTE | ~2024-01-28 | XR_ITS ---
EXAM: XR wrist RT min 3V DATE: 01/28/2024 21:04 HISTORY: fall/injury . COMPARISON: X-ray right hand 11/21/2023. FINDINGS: Normal mineralization. No fracture or dislocation. No lytic or blastic lesion. Mild scatte red degenerative change. No erosion or periosteal change. Soft tissues within normal limits. IMPRESSION: No acute osseous finding in the right wrist. Reviewed, dictated and finalized at location K.
--- NOTE | ~2024-01-28 | CT_ITS ---
EXAMINATION: CT lumbar spine wo con DATE: 01/28/2024 21:00 INDICATION: fall/injury . TECHNIQUE: Computed tomography (CT) of the lumbar spine was performed without intravenous contrast. A utomated exposure control and iterative reconstruction technique were employed. [facility] 1129.25 mGy-cm. COMPARISON: 10/02/2023. FINDINGS: 5 nonrib-bearing lumbar-type vertebral bodies. Rudimentary disc at S1-S2. Pedicles intact. Minimal anterolisthesis at L5-S1, presumably on a degenerative basis. Vertebral body heights preserve d. Moderate multilevel degenerative disc disease. Severe multilevel facet arthropathy. Severe bilater al sacroiliitis. No severe central canal or neural foraminal narrowing. Status post cholecystectomy. Atherosclerotic calcifications. IMPRESSION: No acute fracture or traumatic malalignment in the lumbar spine. Reviewed, dictated and finalized at location K.
[2024-01-28 19:43] VITALS: BP 150/100; PULSE 84; RESP 15; TEMP 36.4; O2SAT 98
--- NOTE | 2024-01-28 22:07 | PC.NURSE ---
Patient walked up to triage area and advised that she was going to be leaving. Patient had a steady gait up on exiting ED.
== END 2024-01-28 22:07 | disposition left against medical advice (07) ==
PROVIDERS: Emergency Provider Emergency Medicine; PCP Internal Medicine
DX: S39.92XA Unspecified injury of lower back, initial encounter (principal); W18.09XA Striking against other object with subsequent fall, initial encounter
CPT/HCPCS: 72131; 73110; 99199

== ENCOUNTER 2024-02-06 18:27 | Emergency (ER) | payer MEDICARE, SELFPAY ==
--- NOTE | ~2024-02-06 | CT_ITS ---
EXAMINATION: CT wrist RT wo con DATE: 02/06/2024 20:20 INDICATION: Right wrist pain. Fall. TECHNIQUE: Computed tomography (CT) of the right wrist was performed without intravenous contrast. Au tomated exposure control and iterative reconstruction technique were employed. The dose-length produc t was 430.44 mGy-cm. COMPARISON: Right wrist radiographs 01/28/2024 FINDINGS: Alignment is normal. No fracture. There is a 4 mm intraosseous ganglion in lunate. There is moderate osteoarthritis of first carpometacarpal joint. IMPRESSION: 1. No fracture. 2. Moderate osteoarthritis of first carpometacarpal joint. Reviewed, dictated and finalized at location A.
[2024-02-06 18:47] VITALS: BP 158/86; PULSE 88; RESP 18; TEMP 36.3; O2SAT 100
--- NOTE | 2024-02-06 20:31 | ED.GENADULT ---
HPI - General Adult General Chief complaint: Extremity Injury, Upper Stated complaint: R WRIST PAIN FOR WEEKS Time Seen by Provider: 02/06/24 19:51 History of Present Illness HPI narrative: 68-year-old female presents emergency department for evaluation for chronic wrist pain. Patient states that she has had multiple injuries to the wrist. Patient states her last wrist injury is approximately 2 weeks ago and she did have imaging at that time. Patient states he has tried to have follow-up with primary care physician for this pain but has not yet been able to. Patient states that the pain acutely worsened a few days ago and is poorly controlled. Related Data Home Medications Medication Instructions Recorded Confirmed exemestane 25 mg tablet 25 mg PO HS 01/06/20 12/05/23 insulin glargine 100 unit/mL (3 32 unit subcut QAM 01/06/20 12/05/23 mL) subcutaneous pen (Lantus Solostar U-100 Insulin) ropinirole 5 mg tablet 5 mg PO HS 01/06/20 12/05/23 insulin lispro 100 unit/mL 28 unit subcut TID 03/19/22 12/05/23 subcutaneous pen (Humalog KwikPen (U-100) Insulin) oxybutynin chloride 15 mg 15 mg PO DAILY 11/06/22 12/05/23 tablet,extended release 24 hr gabapentin 300 mg capsule 300 mg PO TID 06/25/23 12/05/23 methenamine hippurate 1 gram tablet g 12/12/23 12/12/23 Allergies Allergy/AdvReac Type Severity Reaction Status Date / Time ceftriaxone Allergy Severe SOB Verified 01/28/24 19:42 cephalexin Allergy Severe Difficulty Verified 01/28/24 19:42 Breathing Cephalosporins Allergy Severe Difficulty Verified 01/28/24 19:42 Breathing lorazepam Allergy Severe Swelling Verified 01/28/24 19:42 trazodone Allergy Severe Swelling Verified 01/28/24 19:42 of Lip/Tongue/Throat metoclopramide Allergy Intermediate Other Verified 01/28/24 19:42 chlorhexidine Allergy Mild BLISTERING Verified 01/28/24 19:42 levofloxacin Allergy Mild Hives / Verified 01/28/24 19:42 Red Face ketorolac Allergy Itching Verified 01/28/24 19:42 latex Allergy Rash Verified 01/28/24 19:42 meropenem Allergy Rash Verified 01/28/24 19:42 nitrofurantoin Allergy Itching Verified 01/28/24 19:42 sulfamethoxazole Allergy Itching Verified 01/28/24 19:42 [From Sulfamethoxazole-Trimethoprim] trimethoprim Allergy Itching Verified 01/28/24 19:42 [From Sulfamethoxazole-Trimethoprim] oxycodone AdvReac Mild Vomiting Verified 01/28/24 19:42 amlodipine AdvReac Swelling Verified 01/28/24 19:42 lisinopril AdvReac Swelling Verified 01/28/24 19:42 pregabalin AdvReac Swelling Verified 01/28/24 19:42 reslizumab AdvReac Unknown Verified 01/28/24 19:42 Review of Systems Review of Systems: All systems reviewed & are unremarkable except as noted in HPI and below PMFSH Past Medical History Medical History Anxiety Breast cancer Chronic anticoagulation Chronic back pain Collagenous colitis Congestive heart failure COVID-19 Deep venous thrombosis Depression Irritable bowel syndrome Kidney stone Morbid obesity Multiple thyroid nodules Obstructive sleep apnea on CPAP Overactive bladder Peripheral neuropathy Pulmonary embolism positive for coagulation workup Restless leg syndrome Type 2 diabetes mellitus Surgical History Surgical History History of bilateral mastectomy History of cardiac catheterization Reportedly negative for coronary artery disease. History of cholecystectomy History of colonoscopy History of cystoscopy History of esophagogastroduodenoscopy (EGD) History of right oophorectomy History of total right knee replacement History of umbilical hernia repair History of ureter stent Status post insertion of spinal cord stimulator Family History Family History Mother Diabetes mellitus Acute myocardial infarction Cerebrovascula
== END 2024-02-06 20:59 | disposition home or self-care (01) ==
PROVIDERS: Emergency Provider Emergency Medicine; PCP Internal Medicine
DX: M25.531 Pain in right wrist (principal); M19.90 Unspecified osteoarthritis, unspecified site; F41.9 Anxiety disorder, unspecified; Z85.3 Personal history of malignant neoplasm of breast; Z79.01 Long term (current) use of anticoagulants; F32.A Depression, unspecified; G47.30 Sleep apnea, unspecified; E11.9 Type 2 diabetes mellitus without complications; I50.9 Heart failure, unspecified; G89.29 Other chronic pain; Z87.442 Personal history of urinary calculi
CPT/HCPCS: 73200; 99284

== ENCOUNTER 2024-03-18 11:49 | Emergency (ER) | payer MEDICARE, SELFPAY ==
--- NOTE | ~2024-03-18 | US_ITS ---
EXAMINATION: US venous doppler UE DATE: 03/18/2024 14:32 INDICATION: Left neck pain. TECHNIQUE: Grayscale ultrasound images without and with compression and Doppler ultrasound images of the left upper extremity veins were obtained. COMPARISON: Ultrasound 08/25/2017 FINDINGS: The visualized portions of the left internal jugular vein, subclavian vein, axillary vein, brachial v eins, basilic vein, cephalic vein, radial vein, and ulnar vein are patent. IMPRESSION: 1. No deep venous thrombosis. Reviewed, dictated and finalized at location A. [employer] MANAGER
--- NOTE | ~2024-03-18 | CT_ITS ---
CTA brain carotid Ordering provider: Larissa Tony History: . throbbing/aching in L lateral neck . Comparison: None. Technique: CT angiogram head and neck was performed following timed intravenous injection of contrast . Thin slice axial images and reformatted coronal images were obtained. Three dimensional reformatted images of the brain were also obtained using a [employer] workstation. The dose-length product was 1619.77 mGy-cm. 100 mL Omnipaque 350 was given IV. FINDINGS: HEAD: --ANTERIOR AND MIDDLE CEREBRAL ARTERIES AND BRANCHES: Normal caliber and contour. --INTERNAL CAROTID ARTERIES: Mild atheromatous disease but no significant stenosis. No occlusion. --BASILAR ARTERY AND BRANCHES: Bifid left superior cerebellar artery. Normal caliber and contour. No atheromatous disease. 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 --ANEURYSM: None visualized. --BRAIN: Please refer to report of CT head performed the same day. --BONES AND SUPERFICIAL SOFT TISSUES: Normal. --PARANASAL SINUSES AND MASTOIDS: Well aerated. NECK: --RIGHT CERVICAL CAROTID SYSTEM: Normal caliber and contour. Percent stenosis per NASCET criteria is 0%. No carotid dissection. Otherwise, no significant atheromatous disease or stenosis of the cervica l carotid system. --LEFT CERVICAL CAROTID SYSTEM: Normal caliber and contour. Percent stenosis per NASCET criteria is 0%. No carotid dissection. Otherwise, no significant atheromatous disease or stenosis of the cervical carotid system. --VERTEBRAL ARTERIES: Normal caliber and contour. --VISUALIZED AORTIC ARCH AND BRANCHING VESSELS: Normal caliber and contour. No significant atheromato us disease. --SOFT TISSUES: Normal. --CERVICAL SPINE: Age appropriate degenerative changes. IMPRESSION: 1. Normal CTA head and neck. Percent stenosis per NASCET criteria is 0%. Reviewed, dictated and finalized at location A. OOM HOST
[2024-03-18 11:53] VITALS: BP 161/79; PULSE 79; RESP 16; TEMP 36.4; O2SAT 98
--- NOTE | 2024-03-18 13:40 | ED.GENADULT ---
HPI - General Adult General Chief complaint: Unspecified <STEPH Powell Last Filed: 03/18/24 18:57> Stated complaint: pulsing in my jugular <STEPH Powell Last Filed: 03/18/24 18:57> Time Seen by Provider: 03/18/24 13:41 <STEPH Powell Last Filed: 03/18/24 18:57> Focused HPI: Patient is a 68-year-old female who presents the ED with report of a pulsing/aching sensation in L sided neck. patient reports these symptoms have been going on for the last 2 days. Symptoms are intermittent, lasts for a few seconds at a time before resolving. she also reports having a headache 2 days ago with the pulsing sensation, but denies current headache. Denies numbness/tingling, weakness in arms, dizziness. She has hx of blood clots and states she missed one dose of blood thinner last week. GENERAL: Well-appearing, morbidly obese with BMI of 48.7, and in no acute distress. HEAD: Normocephalic, atraumatic. CHEST: Clear to auscultation. ?No respiratory distress. HEART: Regular rate and rhythm.? NECK: No swelling or erythema overlying anterolateral neck. No appreciable tenderness. NEURO: ?Alert and oriented x3. Patient screened in triage and initial orders placed.? ?Additional care and disposition to be based upon?diagnostic testing and treatment. <Larissa Tony PA-C - Last Filed: 03/18/24 18:57> Source: patient <STEPH Powell Last Filed: 03/18/24 18:57> Mode of arrival: ambulatory <STEPH Powell Last Filed: 03/18/24 18:57> Limitations: no limitations <STEPH Powell Last Filed: 03/18/24 18:57> History of Present Illness HPI narrative: History as per MSE. Pt has bounding pulsing feeling in right neck. Pt denies CAZARES or weakness. Pt has been having some premature beats and thinks thois may be what she is feeling. <Kolby Triplett III, DO - Last Filed: 03/18/24 18:36> Related Data Home medications: Home Medications Medication Instructions Recorded Confirmed exemestane 25 mg tablet 25 mg PO HS 01/06/20 12/05/23 insulin glargine 100 unit/mL (3 32 unit subcut QAM 01/06/20 12/05/23 mL) subcutaneous pen (Lantus Solostar U-100 Insulin) ropinirole 5 mg tablet 5 mg PO HS 01/06/20 12/05/23 insulin lispro 100 unit/mL 28 unit subcut TID 03/19/22 12/05/23 subcutaneous pen (Humalog KwikPen (U-100) Insulin) oxybutynin chloride 15 mg 15 mg PO DAILY 11/06/22 12/05/23 tablet,extended release 24 hr gabapentin 300 mg capsule 300 mg PO TID 06/25/23 12/05/23 methenamine hippurate 1 gram tablet g 12/12/23 12/12/23 <Larissa Tony PA-C - Last Filed: 03/18/24 18:57> Allergies/adverse reactions: Allergies Allergy/AdvReac Type Severity Reaction Status Date / Time ceftriaxone Allergy Severe SOB Verified 01/28/24 19:42 cephalexin Allergy Severe Difficulty Verified 01/28/24 19:42 Breathing Cephalosporins Allergy Severe Difficulty Verified 01/28/24 19:42 Breathing lorazepam Allergy Severe Swelling Verified 01/28/24 19:42 trazodone Allergy Severe Swelling Verified 01/28/24 19:42 of Lip/Tongue/Throat metoclopramide Allergy Intermediate Other Verified 01/28/24 19:42 chlorhexidine Allergy Mild BLISTERING Verified 01/28/24 19:42 levofloxacin Allergy Mild Hives / Verified 01/28/24 19:42 Red Face ketorolac Allergy Itching Verified 01/28/24 19:42 latex Allergy Rash Verified 01/28/24 19:42 meropenem Allergy Rash Verified 01/28/24 19:42 nitrofurantoin Allergy Itching Verified 01/28/24 19:42 sulfamethoxazole Allergy Itching Verified 01/28/24 19:42 [From Sulfamethoxazole-Trimethoprim] trimethoprim Allergy Itching Verified 01/28/24 19:42 [From Sulfamethoxazole-Trimethoprim] oxycodone AdvReac Mild Vomiting Verified 01/28/24 19:42 amlodipine AdvReac Swelling Verified 01/28/24 19:42 lisinopril AdvReac Swelling Verified 01/28/24 19:42 pregabalin AdvReac Swelling Verified 01/28/24 19:42 reslizumab AdvReac Unknown Verified 01/28/24 19:42 <Larissa Tony PA-C - Last Filed: 03/18/24 18:57> Review of Systems Review of Systems: All systems reviewed & are unremarkable except as noted in HPI and below <Kolby Triplett III, DO - Last Filed: 03/18/24 18:36> [facility] Past Medical History Medical History: Medical History Anxiety Breast cancer Chronic anticoagulation Chronic back pain Collagenous colitis Congestive heart failure COVID-19 Deep venous thrombosis Depression Irritable bowel syndrome Kidney stone Morbid obesity Multiple thyroid nodules Obstructive sleep apnea on CPAP Overactive bladder Peripheral neuropathy Pulmonary embolism positive for coagulation workup Restless leg syndrome Type 2 diabetes mellitus <STEPH Powell Last Filed: 03/18/24 18:57> Surgical History Surgical History: Surgical History History of bilateral mastectomy History of cardiac catheterization Reportedly negative for coronary artery disease. History of cholecystectomy History of colonoscopy History of cystoscopy History of esophagogastroduodenoscopy (EGD) History of right oophorectomy History of total right knee replacement History of umbilical hernia repair History of ureter stent Status post insertion of spinal cord stimulator <Larissa Tony PA-C - Last Filed: 03/18/24 18:57> Family History Family History: Family History Mother Diabetes mellitus Acute myocardial infarction Cerebrovascular accident Hypertension Congestive heart failure Father Prostate carcinoma Sibling Breast cancer Acute myocardial infarction Chronic obstructive pulmonary disease <STEPH Powell Last Filed: 03/18/24 18:57> Social History Social History: Social History Social History: Surrogate medical decision maker: Jimmie Marques, spouse. Code status: Full code. Smoking packs per day: 0 Smoking cigarettes per day: 0.0 Years smoked: 2 Smoking pack-years: 0.00 Smoking status: Former smoker Second hand tobacco smoke exposure: Yes Alcohol intake: never Substance use: never Substance use type: does not use Do You Feel Safe in your Home?: Yes Lack of Transportation: No Lack of Food: Never True Current Housing: I Have Housing Concerned About Future Housing: No Difficulty Paying Gas/Electric Bills: No Difficulty Paying for Meds: No Currently Unemployed: No Education: Decline to Answer Difficulty w/ Childcare or Family Care: No Living arrangements: with family Additional occupation/education comments: Disabled. Spiritual care concerns: No <Larissa Tony PA-C - Last Filed: 03/18/24 18:57> Exam Const: General: cooperative, healthy appearing, comfortable and no acute distress <Kolby Kashmir Triplett III, DO - Last Filed: 03/18/24 18:36> HENMT: Head: normal to inspection <Kolby Kashmir Triplett III, DO - Last Filed: 03/18/24 18:36> Eyes: General: appearance normal, both eyes and all related structures <Kolby Kashmir Triplett III, DO - Last Filed: 03/18/24 18:36> Neck: Neck: normal visual inspection, full ROM, no lymphadenopathy, no meningeal signs and supple <Kolby Kashmir Triplett III, DO - Last Filed: 03/18/24 18:36> Carotids: normal carotid upstroke <Kolby Kashmir Triplett III, DO - Last Filed: 03/18/24 18:36> Lymphatic: no lymphadenopathy noted <Kolby Kashmir Triplett III, DO - Last Filed: 03/18/24 18:36> Chest: Chest palpation & inspection: normal inspection of the chest <Kolby Kashmir Triplett III, DO - Last Filed: 03/18/24 18:36> Resp: Effort & Inspection: normal respiratory effort <Kolby Kashmir Triplett III, DO - Last Filed: 03/18/24 18:36> Auscultation: clear to auscultation bilaterally <Kolby Kashmir Triplett III, DO - Last Filed: 03/18/24 18:36> Cardio: Rate: regular rate <Kolby Kashmir Triplett III, DO - Last Filed: 03/18/24 18:36> Rhythm: regular rhythm <Kolby Kashmir Triplett III, DO - Last Filed: 03/18/24 18:36> Back/Spine/Pelvis: Back: no CVA tenderness <Kolby Kashmir Triplett III, DO - Last Filed: 03/18/24 18:36> Skin: General skin exam: normal color <Kolby Kashmir Triplett III, DO - Last Filed: 03/18/24 18:36> Lesions: no lesions <Kolby Kashmir Triplett III, DO - Last Filed: 03/18/24 18:36> Rashes: no rashes <Kolby Kashmir Triplett III, DO - Last Filed: 03/18/24 18:36> Trauma: no lacerations or abrasions <Kolby Kashmir Triplett III, DO - Last Filed: 03/18/24 18:36> Neuro: General: patient oriented x3 and no meningeal signs <Kolby Kashmir Triplett III, DO - Last Filed: 03/18/24 18:36> Cranial nerves: Yes CN's II-XII intact bilaterally, Yes Nystagmus not present and Yes Normal facial strength present <Kolby Kashmir Triplett III, DO - Last Filed: 03/18/24 18:36> Cognition (Neuro): normal cognition <Kolby Kashmir Triplett III, DO - Last Filed: 03/18/24 18:36> Speech: normal speech <Kolby Kashmir Triplett III, DO - Last Filed: 03/18/24 18:36> Motor exam (neuro): 5/5 motor strength present throughout <Kolby Kashmir Triplett III, DO - Last Filed: 03/18/24 18:36> Sensory Exam: normal sensation <Kolby Kashmir Triplett III, DO - Last Filed: 03/18/24 18:36> Extrem: General: normal to inspection, full ROM and no clubbing, cyanosis or edema <Kolby Kashmir Triplett III, DO - Last Filed: 03/18/24 18:36> Psych: Appearance: grossly normal <Kolby Kashmir Triplett III, DO - Last Filed: 03/18/24 18:36> Mental Status: mental status grossly normal <Kolby Kashmir Triplett III, DO - Last Filed: 03/18/24 18:36> Speech and movement: Normal speech and movement present <Kolby Kashmir Triplett III, DO - Last Filed: 03/18/24 18:36> Affect: normal affect <Kolby Kashmir Triplett III, DO - Last Filed: 03/18/24 18:36> Attitude: cooperative <Kolby Kashmir Triplett III, DO - Last Filed: 03/18/24 18:36> Course Vital Signs Vital signs: Vital Signs Temperature 97.5 F L 03/18/24 11:53 Pulse Rate 79 03/18/24 11:53 Respiratory Rate 16 03/18/24 11:53 Blood Pressure 161/79 H 03/18/24 11:53 Pulse Oximetry 98 03/18/24 11:53 Temperature 97.5 F L 03/18/24 11:53 Pulse Rate 72 03/18/24 16:31 Respiratory Rate 18 03/18/24 16:31 Blood Pressure 139/83 03/18/24 16:31 Pulse Oximetry 100 03/18/24 16:31 <Larissa Tony PA-C - Last Filed: 03/18/24 18:57> Vital Signs Temperature 97.5 F L 03/18/24 11:53 Pulse Rate 79 03/18/24 11:53 Respiratory Rate 16 03/18/24 11:53 Blood Pressure 161/79 H 03/18/24 11:53 Pulse Oximetry 98 03/18/24 11:53 Temperature 97.5 F L 03/18/24 11:53 Pulse Rate 72 03/18/24 16:31 Respiratory Rate 18 03/18/24 16:31 Blood Pressure 139/83 03/18/24 16:31 Pulse Oximetry 100 03/18/24 16:31 <Kolby Kahsmir Triplett III, DO - Last Filed: 03/18/24 18:36> Medical Decision Making MDM Narrative Medical decision making narrative: MSE by ERIC in triage. Pt has bounding pulsatile sensation in right neck. labs and CTA and doppler neg and labs neg. ok for d/c <STEPH Powell Last Filed: 03/18/24 18:57> Pt has bounding pulsatile sensation in right neck. labs and CTA and doppler neg and labs neg. ok for d/c <Kolby Kashmir Triplett III, DO - Last Filed: 03/18/24 18:36> Vital Signs Vital Signs: Vital Signs Temperature 97.5 F L 03/18/24 11:53 Pulse Rate 79 03/18/24 11:53 Respiratory Rate 16 03/18/24 11:53 Blood Pressure 161/79 H 03/18/24 11:53 Pulse Oximetry 98 03/18/24 11:53 Temperature 97.5 F L 03/18/24 11:53 Pulse Rate 72 03/18/24 16:31 Respiratory Rate 18 03/18/24 16:31 Blood Pressure 139/83 03/18/24 16:31 Pulse Oximetry 100 03/18/24 16:31 <Larissa Tony PA-C - Last Filed: 03/18/24 18:57> Vital Signs Temperature 97.5 F L 03/18/24 11:53 Pulse Rate 79 03/18/24 11:53 Respiratory Rate 16 03/18/24 11:53 Blood Pressure 161/79 H 03/18/24 11:53 Pulse Oximetry 98 03/18/24 11:53 Temperature 97.5 F L 03/18/24 11:53 Pulse Rate 72 03/18/24 16:31 Respiratory Rate 18 03/18/24 16:31 Blood Pressure 139/83 03/18/24 16:31 Pulse Oximetry 100 03/18/24 16:31 <Kolby Marlow Triplett III, DO - Last Filed: 03/18/24 18:36> Lab Data Result diagrams: 03/18/24 14:02 03/18/24 14:30 <STEPH Powell Last Filed: 03/18/24 18:57> Labs: Lab Results 03/18/24 03/18/24 Range/Units 14:02 14:30 WBC 9.6 (4.5-10.0) K/mm3 RBC 4.74 (4.2-5.4) M/mm3 Hgb 14.2 (12.0-15.0) g/dL Hct 43.8 (37.0-47.0) % MCV 92.4 (80-100) fl MCH 30.0 (26-34) pg MCHC 32.4 (32-36) g/dl RDW 13.4 (11.5-14.5) % Plt Count 291 (150-375) k/mm3 MPV 9.7 (7.4-10.4) fl Immature Gran % (Auto) 0.5 (0-0.5) % Neut % (Auto) 55.7 (45.5-73.1) % Lymph % (Auto) 32.7 (18.3-44.2) % Whiteside % (Auto) 7.8 (2.6-8.5) % Eos % (Auto) 2.9 (0-4.4) % Baso % (Auto) 0.4 (0.2-1.2) % Lymph # (Auto) 3.15 (0.9-3.2) K/mm3 Whiteside # (Auto) 0.8 H (0.1-0.6) K/mm3 Eos # (Auto) 0.3 (0-0.3) K/mm3 Baso # (Auto) 0.0 (0.0-0.1) K/mm3 Abs Immat Gran (auto) 0.05 H (0.00-0.031) K/mm3 Absolute Neuts (auto) 5.4 (1.3-6.7) K/mm3 Absolute Nucleated RBC 0.000 (0.0-0.012) K/mm3 Nucleated RBC % 0.0 (0.0-0.2) % PT 25.1 H (11.1-14.7) Seconds INR 2.2 APTT 36.0 (22.3-36.8) Seconds Sodium 139 (137-145) mmol/L Potassium 4.1 (3.4-5.0) mmol/L Chloride 102 (98-107) mmol/L Carbon Dioxide 31 H (22-30) mmol/L Anion Gap 6 (4-12) mmol/L BUN 17 (7-17) mg/dL Creatinine 0.60 L 0.70 (0.7-1.0) mg/dL Estim Creat Clear Calc 89 77 ml/min Estimated GFR > 60 > 60 (59 - ) Glucose 79 (65-110) mg/dL Calcium 10.8 H (8.4-10.2) mg/dL Total Bilirubin 0.8 (0.2-1.3) mg/dL AST 33 (14-36) U/L ALT 29 (6-35) U/L Alkaline Phosphatase 60 (38-126) U/L Total Protein 9.0 H (6.3-8.2) g/dL Albumin 4.4 (3.5-5.1) g/dL <Larissa Tony PA-C - Last Filed: 03/18/24 18:57> Lab Results 03/18/24 03/18/24 Range/Units 14:02 14:30 WBC 9.6 (4.5-10.0) K/mm3 RBC 4.74 (4.2-5.4) M/mm3 Hgb 14.2 (12.0-15.0) g/dL Hct 43.8 (37.0-47.0) % MCV 92.4 (80-100) fl MCH 30.0 (26-34) pg MCHC 32.4 (32-36) g/dl RDW 13.4 (11.5-14.5) % Plt Count 291 (150-375) k/mm3 MPV 9.7 (7.4-10.4) fl Immature Gran % (Auto) 0.5 (0-0.5) % Neut % (Auto) 55.7 (45.5-73.1) % Lymph % (Auto) 32.7 (18.3-44.2) % Whiteside % (Auto) 7.8 (2.6-8.5) % Eos % (Auto) 2.9 (0-4.4) % Baso % (Auto) 0.4 (0.2-1.2) % Lymph # (Auto) 3.15 (0.9-3.2) K/mm3 Whiteside # (Auto) 0.8 H (0.1-0.6) K/mm3 Eos # (Auto) 0.3 (0-0.3) K/mm3 Baso # (Auto) 0.0 (0.0-0.1) K/mm3 Abs Immat Gran (auto) 0.05 H (0.00-0.031) K/mm3 Absolute Neuts (auto) 5.4 (1.3-6.7) K/mm3 Absolute Nucleated RBC 0.000 (0.0-0.012) K/mm3 Nucleated RBC % 0.0 (0.0-0.2) % PT 25.1 H (11.1-14.7) Seconds INR 2.2 APTT 36.0 (22.3-36.8) Seconds Sodium 139 (137-145) mmol/L Potassium 4.1 (3.4-5.0) mmol/L Chloride 102 (98-107) mmol/L Carbon Dioxide 31 H (22-30) mmol/L Anion Gap 6 (4-12) mmol/L BUN 17 (7-17) mg/dL Creatinine 0.60 L 0.70 (0.7-1.0) mg/dL Estim Creat Clear Calc 89 77 ml/min Estimated GFR > 60 > 60 (59 - ) Glucose 79 (65-110) mg/dL Calcium 10.8 H (8.4-10.2) mg/dL Total Bilirubin 0.8 (0.2-1.3) mg/dL AST 33 (14-36) U/L ALT 29 (6-35) U/L Alkaline Phosphatase 60 (38-126) U/L Total Protein 9.0 H (6.3-8.2) g/dL Albumin 4.4 (3.5-5.1) g/dL <Kolby Triplett III, DO - Last Filed: 03/18/24 18:36> Discharge Plan Discharge Clinical Impression: Frequent PVCs <STEPH Powell Last Filed: 03/18/24 18:57> Patient Disposition: Home, Self-Care <STEPH Powell Last Filed: 03/18/24 18:57> Condition: Improved <STEPH Powell Last Filed: 03/18/24 18:57> Instructions: Antibiotic Form, Premature Ventricular Contractions (ED) <STEPH Powell Last Filed: 03/18/24 18:57> Prescriptions: No Action gabapentin 300 mg capsule 300 mg PO TID methenamine hippurate 1 gram tablet exemestane 25 mg tablet 25 mg PO HS ropinirole 5 mg tablet 5 mg PO HS insulin glargine [Lantus Solostar U-100 Insulin] 100 unit/mL (3 mL) insulin pen 32 unit SUBCUT QAM insulin lispro [Humalog KwikPen Insulin] 100 unit/mL insulin pen 28 unit SUBCUT TID albuterol sulfate 90 mcg/actuation HFA aerosol inhaler 1 inh inhalation QID PRN (Reason: shortness of breath or wheezing) Qty: 6.7 0RF oxybutynin chloride 15 mg tablet extended release 24hr 15 mg PO DAILY acetaminophen 325 mg Tablet 650 mg PO Q6H PRN (Reason: Pain 1-5 or Fever) Qty: 30 0RF Xarelto 20 mg tablet 20 mg PO 1700 Qty: 30 0RF hydrocodone-acetaminophen 10-325 mg tablet 1 tablet PO Q6H PRN (Reason: pain (scale score 7-10)) Qty: 10 0RF lidocaine [Lidoderm] 5 % adhesive patch,medicated 1 patch topical DAILY PRN (Reason: pain) Qty: 15 0RF Rx Instructions: leave on most painful area for up to 12 hrs orphenadrine citrate 100 mg tablet extended release 100 mg PO Q12H PRN (Reason: spasms) 10 Days Qty: 20 0RF <Larissa Tony PA-C - Last Filed: 03/18/24 18:57> Follow-up/Referrals: Shahla,Justen Spicer MD [Primary Care Provider] - <Larissa Tony PA-C - Last Filed: 03/18/24 18:57>
--- NOTE | 2024-03-18 14:04 | PC.NURSE ---
-Pt. taken from [facility] to ultrasound via WC. -CT notified that additional green top is in triage if needed prior to pt. scan.
[2024-03-18 14:14] LABS: Basophils Percent Auto 0.4 % (0.2-1.2); Eosinophils Absolute Auto 0.3 K/mm3 (0-0.3); Eosinophils Percent Auto 2.9 % (0-4.4); Hematocrit 43.8 % (37.0-47.0); Hemoglobin 14.2 g/dL (12.0-15.0); Immature Granulocyte Absolute 0.05 K/mm3 (0.00-0.031); Immature Granulocyte Percent A 0.5 % (0-0.5); Lymphocytes Absolute Auto 3.15 K/mm3 (0.9-3.2); Lymphocytes Percent Auto 32.7 % (18.3-44.2); Mean Corpuscular HGB Conc 32.4 g/dl (32-36); Mean Corpuscular Volume 92.4 fl (80-100); Mean Platelet Volume 9.7 fl (7.4-10.4); Monocytes Absolute Auto 0.8 K/mm3 (0.1-0.6); Monocytes Percent Auto 7.8 % (2.6-8.5); Neutrophils Absolute Auto 5.4 K/mm3 (1.3-6.7); Neutrophils Percent Auto 55.7 % (45.5-73.1); Platelet Count Result 291 k/mm3 (150-375); Red Blood Count 4.74 M/mm3 (4.2-5.4); Red Cell Distribution Width 13.4 % (11.5-14.5); White Blood Count 9.6 K/mm3 (4.5-10.0)
[2024-03-18 14:25] LABS: Alanine Aminotransferase 29 U/L (6-35); Albumin Level 4.4 g/dL (3.5-5.1); Alkaline Phosphatase 60 U/L (38-126); Anion Gap 6 mmol/L (4-12); Aspartate Amino Transferase 33 U/L (14-36); Bilirubin,Total 0.8 mg/dL (0.2-1.3); Blood Urea Nitrogen 17 mg/dL (7-17); Calcium 10.8 mg/dL (8.4-10.2); Carbon Dioxide 31 mmol/L (22-30); Chloride 102 mmol/L (98-107); Estimated CRCL calculation 89 ml/min; Estimated Glomerular Filt Rate > 60; Glucose 79 mg/dL (65-110); Potassium 4.1 mmol/L (3.4-5.0); Sodium 139 mmol/L (137-145)
[2024-03-18 14:30] LABS: INR 2.2; Prothrombin Time 25.1 Seconds (11.1-14.7)
[2024-03-18 14:32] LABS: Estimated CRCL calculation 77 ml/min; Estimated Glomerular Filt Rate > 60
[2024-03-18 15:15] VITALS: BP 145/86; PULSE 80; RESP 16; O2SAT 100
[2024-03-18 15:21] VITALS: BP 145/86; PULSE 78; RESP 19; O2SAT 100
[2024-03-18 16:31] VITALS: BP 139/83; PULSE 72; RESP 18; O2SAT 100
--- NOTE | 2024-03-18 16:49 | PC.NURSE ---
PT TOOK HOME NORCO FOR HER CHRONIC BACK PAIN AFTER OK BY DR HAYNES
[2024-03-18 18:35] VITALS: BP 150/70; PULSE 71; RESP 16; O2SAT 98
== END 2024-03-18 18:35 | disposition home or self-care (01) ==
PROVIDERS: Physician Assistant; Emergency Provider Emergency Medicine; PCP Internal Medicine
DX: I49.3 Ventricular premature depolarization (principal); F41.9 Anxiety disorder, unspecified; Z85.3 Personal history of malignant neoplasm of breast; Z79.01 Long term (current) use of anticoagulants; I50.9 Heart failure, unspecified; F32.A Depression, unspecified; Z87.442 Personal history of urinary calculi; E66.01 Morbid (severe) obesity due to excess calories; Z68.42 Body mass index [BMI] 45.0-49.9, adult; G47.30 Sleep apnea, unspecified; Z86.711 Personal history of pulmonary embolism; E11.9 Type 2 diabetes mellitus without complications; Z79.4 Long term (current) use of insulin
CPT/HCPCS: 36415; 70496; 70498; 80053; 85025; 85610; 85730; 93971; 99284; Q9967

== ENCOUNTER 2024-04-19 01:48 | Emergency (ER) | payer MEDICARE, SELFPAY ==
[2024-04-19 01:49] VITALS: BP 143/72; PULSE 85; RESP 18; TEMP 36.6; O2SAT 98
[2024-04-19 02:23] LABS: Add Urine Microscopic? YES; Appearance Urine Clear (Clear); Bacteria Urine None Seen /hpf; Bilirubin Urine Negative (Negative); Blood Urine Trace (Negative); Color Urine Yellow (Yellow); Glucose Urine UA Negative (Negative); Ketones Urine Negative (Negative); Leukocyte Esterase Ur 2+ LEU/UL (Negative); Nitrate Urine Negative (Negative); Non Pathogenic Casts 0-2; Protein Urine Negative (Negative); Specific Grav Ur 1.021 (1.001-1.035); Squamous Epithelial Cell Urine None Seen /hpf (Few); Urobilinogen Urine 0.2 mg/dL (<2.0); WBC Urine 51-100 /hpf (0-3)
[2024-04-19 03:38] VITALS: BP 121/58; PULSE 70; RESP 18; O2SAT 98
--- NOTE | 2024-04-19 04:23 | PC.NURSE ---
Pt walked up to triage desk stating shes been here for a couple hours and not one person name has been called back. Pt states its hurting her back sitting in triage chairs so she is going to go back home and get some sleep and then come back in the later morning. Pt left without being seen by provider.
--- OUTSIDE RECORDS SUMMARY | 2024-04-26 02:30 | XMS_ITS | Encounter Summary ---
Author Organization [facility] Address [address] [place] [address] Care Team Providers Care Animal Pathologist Name Role Phone Justen Gale MD Primary Care Provider [phone] Reason for Visit * Reason Onset Date Comments Appointment 01/26/2024 Referral Encounter Details Date Type Department Care Team (Late st Contact Info) Description 01/26/2024 Telephone [facility] [address] [place] [address], [place] [address] Maldonado Christianson MD [address] [place] [phone] Appointment (Referral ) Social History Tobacco Use Types Packs/Day Years Used Date Smoking Tobacco: Former Cigarettes Q uit: 12/05/1977 Smokeless Tobacco: Never Alcohol Use Standard Drinks/Week Comments No 0 (1 standard drink = 0.6 oz pur e alcohol) AUDIT-C Answer Date Recorded Q1: How often do you have a drink containing alcohol? Never 06/16/2023 Q2: How many drinks containi ng alcohol do you have on a typical day when you are drinking? Patient does not drink Q3: How often do you have si x or more drinks on one occasion? Never 06/16/2023 Overall Financial Resource Strain (CARDIA) Answe r Date Recorded How hard is it for you to pa y for the very basics like food, housing, medical care, and heating? Somewhat hard 05/16/2023 [facility] [place] of Occupat ional Health - Occupational Stress Questionnaire Answer Date Recorded Do you feel stress - tense, restless, nervous, or anxious, or unable to sleep at night because your mind is troubled all the time - these days? Not at all 05/16/2023 Hunger Vital Sign Answer Date Recorded Within the past 12 months, y ou worried that your food would run out before you got the money to buy more. Never true 05/16/19 24 Within the past 12 months, t he food you bought just didn't last and you didn't have money to get more. Never true 05/16/2023 PRAPARE - Transportation Answer Date Re corded In the past 12 months, has l ack of transportation kept you from medical appointments or from getting medications? No 04/25 In the past 12 months, has l ack of transportation kept you from meetings, work, or from getting things needed for daily living? No 05/16/2023 Housing Stability Vital Sign Answer [place] e Recorded In the last 12 months, was t here a time when you were not able to pay the mortgage or rent on time? No 05/16/2023 In the last 12 months, how many places have you lived? 1 05/16/2023 In the last 12 months, was t here a time when you did not have a steady place to sleep or slept in a correction (including now)? No 05/16/2023 Sex and Gender Information Value Date Recorded Sex Assigned at Not on file Gender Identity Not on file Sexual Orientation Not on file documented as of this encounter Functional Status Functional Status Response Date of Assess ment Is person deaf or have serious hearing difficult y? No 02/22/2023 Is person blind or have serious difficulty seein g? No 02/22/2023 Does person have serious dif ficulty walking/climbing stairs? Yes 02/22/2023 Does person have difficulty dressing/bathing? Ye s 02/22/2023 Does person have difficulty doing errands alone? No 02/22/2023 Cognitive Status Response Date of Assessm ent Does person have difficulty concentrating/remembering/making decisions? No 02/22/2023 documented as of this encounter Miscellaneous Notes * Telephone Encounter - Christin Bryant - 01/26/2024 9:50 AM CDT Left VM for the patient to call to schedule for: R wrist pain documented in this encounter Plan of Treatment Not on file documented as of this encounter Visit Diagnoses Not on filedocumented in this encounter Care Teams Animal Pathologist Relationship Specialty Start Date End Date Justen Gale MD PCP - General 07/05/21 documented as of this encounter
--- OUTSIDE RECORDS SUMMARY | 2024-04-26 02:30 | XMS_ITS | Encounter Summary ---
Author Organization [facility] Address [address] [facility] [place] [address] Care Team Providers Care Cloud Infrastructure Architect Name Role Phone Justen Gale MD Primary Care Provider [phone] Encounter Details Date Type Department Care Team (Latest Contact Info) Description 06/16/2023 Travel Social History Tobacco Use Types Packs/Day Years [...] medical care, and heating? Somewhat hard 05/16/2023 [facility] [place] of Occupat ional Health - Occupational Stress [...] place to sleep or slept in a [place] health care facility (including now)? No 05/16/2023 Sex and Gender [...] No 02/22/2023 documented as of this encounter Plan of Treatment Not on file documented as of this encounter Visit Diagnoses Not on filedocumented in this encounter Care Teams Cloud Infrastructure Architect Relationship Specialty Start Date End Date Justen Gale MD PCP - General 07/05/21 documented as of this encounter
--- OUTSIDE RECORDS SUMMARY | 2024-04-26 02:30 | XMS_ITS | Encounter Summary ---
Author Organization [facility] Address [address] [facility] [place] [address] Care Team Providers Care Adhesive Bonding Machine Operator Name Role Phone Justen Gale MD Primary Care Provider [phone] Reason for Visit * Reason Comments Refill Request Encounter Details Date Type Department Care Team (Late st Contact Info) Description 07/12/2023 Refill [facility] [address] [place] [address] [address] [place] [phone] Opal Orellana, AT RISK SPECIALIST-MOTOR POOL CLERK [address] [place] [phone] Refill Request Social History Tobacco Use Types Packs/Day Years [...] medical care, and heating? Somewhat hard 05/16/2023 [facility] [place] of Occupat ional Health - Occupational Stress [...] place to sleep or slept in a care home (including now)? No 05/16/2023 Sex and Gender [...] on filedocumented in this encounter Care Teams Adhesive Bonding Machine Operator Relationship Specialty Start Date End Date Justen Gale MD PCP - General 07/05/21 documented as of this encounter
--- OUTSIDE RECORDS SUMMARY | 2024-04-26 02:30 | XMS_ITS | Encounter Summary ---
Author Organization [facility] Address [address] [facility] [place] [address] Care Team Providers Care Clinical Pathologist Name Role Phone Justen Gale MD Primary Care Provider [phone] Encounter Details Date Type Department Care Team (Latest Contact Info) Description 07/17/2023 Travel Social History Tobacco Use Types Packs/Day [...] medical care, and heating? Somewhat hard 05/16/2023 [facility] [place] of Occupat ional Health - Occupational Stress [...] place to sleep or slept in a long term (including now)? No 05/16/2023 Sex and Gender [...] on filedocumented in this encounter Care Teams Clinical Pathologist Relationship Specialty Start Date End Date Justen Gale MD PCP - General 07/05/21 documented as of this encounter
--- OUTSIDE RECORDS SUMMARY | 2024-04-26 02:30 | XMS_ITS | Encounter Summary ---
Author Organization [facility] Address [address] [place] [address] Care Team Providers Care Scout Name Role Phone Justen Gale MD Primary Care Provider [phone] Encounter Details Date Type Department Care Team (Late st Contact Info) Description 02/07/2024 Orders Only [facility] [address] [facility] [place] [address] Patrick Flynn, PELT SHEARER-CLARIFYING PLANT OPERATOR [address] [id number] Social History Tobacco Use Types Packs/Day Years [...] medical care, and heating? Somewhat hard 05/16/2023 [facility] [place] of Occupat ional Health - Occupational Stress [...] place to sleep or slept in a group home (including now)? No 05/16/2023 Sex and [...] on filedocumented in this encounter Care Teams Scout Relationship Specialty Start Date End Date Justen Gale MD PCP - General 07/05/21 documented as of this encounter
--- OUTSIDE RECORDS SUMMARY | 2024-04-26 02:30 | XMS_ITS | Encounter Summary ---
Author Organization [facility] Address [address] [place] [place] [address] Care Team Providers Care Assembly Line Robot Operator Name Role Phone Justen Gale MD Primary Care Provider [phone] Encounter Details Date Type Department Care Team (Late st Contact Info) Description 03/08/2024 Orders Only [facility] [address] [place] [address] Caroline Sultana RN Social History Tobacco Use Types Packs/Day Years [...] medical care, and heating? Somewhat hard 05/16/2023 [facility] [place] of Occupat ional Health - Occupational Stress [...] place to sleep or slept in a [facility] (including now)? No 05/16/2023 Sex and Gender [...] on filedocumented in this encounter Care Teams Assembly Line Robot Operator Relationship Specialty Start Date End Date Justen Gale MD PCP - General 07/05/21 documented as of this encounter
--- OUTSIDE RECORDS SUMMARY | 2024-04-26 02:30 | XMS_ITS | Referral Summary ---
Author Organization [facility] Address [address] [place] [address] Care Team Providers Care Bull Rider Name Role Phone Justen Gale MD Primary Care Provider [phone] Source Comments [facility],non-[facility] Affiliates and Associated Physician Practices is amultiple site organization consisting of ambulatory clinics and hospital sitesin [place], [place], [place] and [place]. This disclosure is being madepursuant to the Care Everywhere program and may not contain all information available regarding this patient. Last updated 18.[facility] Encounters Date Type Department Care Team Description 03/08/2024 Orders Only [facility] - Urology [address] [place] [id number] Caroline Sultana RN 02/07/2024 Orders Only [facility] - Orthopedics [address] [place] [phone] Patrick Flynn APRN-NETTA 02/05/2024 Travel 01/26/2024 Telephone [facility] [address] [place] [phone] Maldonado Christianson MD Appointment (Referral ) from Last 3 Months Allergies Active Allergy Reactions Criticality Noted Date Comments Adhesive Sensitivity Rash Medium 09/16/2021 Amlodipine Base Swelling Medium 07/05/2022 Leg swelling Leg swelling Sulfamethoxazole W-Trimethoprim Vomiting 03/19/2023 Ceftriaxone Anaphylaxis,Shortne ss of Breath High 12/06/2011 R Cephalosporins Anaphylaxis,Shortne ss of Breath High 03/22/2017 Contrast-Iodinated Agents For Ct/Other Rash Medium 09/16/2021 Ketorolac Itching Low 07/05/2021 Latex Rash Medium 07/05/2021 Levofloxacin Urticaria,Skin Reactions Medium 04/20/2017 Lisinopril Swelling 04/19/2021 Nitrofurantoin Rash Medium 10/30/2021 Piperacillin-Tazobactam In D5w Rash Medium 07/05/2021 Pregabalin Other Low 10/29/2020 Reslizumab Unknown 10/29/2020 Skin Adhesives Skin Reactions 09/16/2021 Trazodone Anaphylaxis,Other High 11/03/2017 Shaky, restlessness, itching, throat swelling Medications * Be aware that medications may not be up to date on this document. Alwaysverify current medications with the patient. Medication Sig Dispensed Refills Start Date End Date Status exemestane (AROMASIN) 25 MG tablet Take 1 (one) tablet by mouth DAILY 04/20/2017 Active rOPINIRole (REQUIP) 5 MG tablet TAKE 1 TABLET BY MOUTH EVERY NIGHT 06/09/2021 Active Lancets (ONETOUCH DELICA PLUS 33G EXTRA FINE LANCET) USE FOUR TIMES DAILY 03/10/2021 Active ONETOUCH ULTRA test strip 4 times daily 02/01/2021 Active insulin pen needle (B-D ULTRAFINE III SHORT PEN) 31G X 8 MM needle 4 times daily 300 Each 11/16/2021 Active HumaLOG KwikPen 100 UNIT/ML pen 26 (twenty six) Units 3 times daily before meals 02/25/2022 Active Lantus SoloStar pen 40 (forty) Units once 02/25/2022 Active rivaroxaban (Xarelto) 20 MG tabletIndications: Deep Vein Thrombosis,Pulmona ry Embolism Take 1 (one) tablet by mouth daily with food Reasons: Blockage of Blood Vessel to Lung by a Particle, Blood Clot in a Deep Vein Active hydrOXYzine HCl (Atarax) 25 MG tablet Take 1 (one) tablet by mouth 3 times daily as needed for Itching 30 tablet 03/22/2023 Active lidocaine (Lidoderm) 5 % patch Apply 1 (one) patch to skin every 24 hours Apply patch to most painful area and remove after 12 hours. May reapply a new patch 12 hours later. 18 patch 04/20/2023 Active Multiple Vitamins-Minerals (Multivitamin Womens 50+ Adv) TABS Take 1 tablet by mouth once daily Active polyethylene glycol 3350 (Miralax) 17 g packet Take 17 (seventeen) g by mouth once daily 06/17/2023 Active cyclobenzaprine (Flexeril) 5 MG tablet Take 1 (one) tablet by mouth 3 times daily as needed (Muscle spasms) 30 tablet 06/17/2023 Active Additional Information Patient not taking.Reported on 07/17/2023 methenamine hippurate (Hiprex) 1 GM tablet Take 1 (one) tablet by mouth 2 times daily 60 tablet 2 07/12/2023 Active Continuous Blood Gluc Sensor (FreeStyle Eileen 2 Sensor Systm) MISC APPLY 1 SENSOR AND WEAR FOR 14 DAYS TO CHECK BLOOD SUGAR 07/11/2023 Active gabapentin (Neurontin) 300 MG capsule Take 1 (one) capsule by mouth 3 times daily 06/20/2023 Active naloxone HCl (Narcan) 4 MG/0.1ML nasal spray 07/11/2023 Active ondansetron, disintegrating, (Zofran ODT) 4 MG tablet DISSOLVE 1 TABLET ON THE TONGUE EVERY 8 HOURS NEEDED FOR NAUSEA OR VOMITING 06/28/2023 Active acetaminophen (Tylenol) 500 MG tablet Take 2 (two) tablets by mouth 3 times daily Maximum allowable Acetaminophen amount = 4 Grams (4000 mg) / 24 hours. 08/01/2023 Active oxyCODONE, immediate release, (Roxicodone) 10 MG tabletIndications: Low back pain, unspecified TAKE ONE TABLET BY MOUTH EVERY 4 HOURS NEEDED 20 tablet 08/01/2023 Active amoxicillin-clavul anate (Augmentin) 875-125 MG tablet TAKE ONE TABLET BY MOUTH 2 TIMES A DAY FOR 7 DAYS 14 tablet 08/01/2023 07/31/2024 Active oxyBUTYnin CR 24hr (Ditropan XL) 15 MG tablet Take 1 (one) tablet by mouth once daily 90 tablet 4 03/08/2024 Active Active Problems Problem Noted Date Diagnosed Date Lumbar back pain 07/26/2023 Chronic left-sided low back pain with left-sided sciatica 05/15/2023 Morbid obesity 04/18/2023 Chronic midline low back pain without sciatica 1 06/19/2022 Weakness 03/20/2023 Chronic left-sided low back pain, unspecified whether sciatica present 03/20/2023 S/P placement of nerve stimulator 03/20/2023 Acute cystitis without hematuria 03/20/2023 Breast cancer 03/20/2023 Restless legs syndrome (RLS) 03/20/2023 Cellulitis, wound, post-operative 02/21/2023 Intractable chronic post-traumatic headache 06/2022 Right hand weakness 12/25/2022 Acute intractable headache, unspecified headache type 12/20/2022 Tachycardia 11/12/2021 Multiple subsegmental pulmon sloane emboli without acute cor pulmonale 11/12/2021 Wound infection complicating hardware 11/12/2021 Preoperative examination 10/30/2021 Acute post-operative pain 10/30/2021 S/P insertion of spinal cord stimulator 09/17/19 Chronic back pain 08/16/2021 CVA (cerebral vascular accident) 01/24/2018 Anxiety and depression 11/12/2017 Chronic anticoagulation 11/09/2017 Essential hypertension 10/23/2017 Overview (10/04/2021): Last Assessment & Plan: On lisinopril Type 2 diabetes mellitus without complication Overview (10/04/2021): Last Assessment & Plan: Hold janument. Start on SSI and accucheks Last Assessment & Plan: Hold janument. Start on SSI and accucheks Last Assessment & Plan: Chronic. Controlled. -continue home insulin regimen of lantus 50 units q am -lispro 20 units with breakfast and lunch. 22 units with dinner. LUL (obstructive sleep apnea) 08/01/2017 Overview (10/04/2021): Last Assessment & Plan: Chronic, on CPAP at home - Continue home CPAP Neuropathy 07/05/2017 Resolved Problems Problem Noted Date Diagnosed Date Resolved Date Rash 03/21/2023 04/18/2023 Immunizations Name Administration Dates Next Due INFLUENZA VACCINE, TRIV. (AF LURIA, FLUZONE TRIVALENT; 6MO+) (IIV3) 02/03/2020 FLU VACCINE QUAD IIV4 SPLIT 0.25 ML IM 02/06/2017 FLU VACCINE TRI IIV3 SPLIT I M (FLUVIRIN) 01/23/2016,03/07/2014,05/07/2013 INFLUENZA 01/17/2023 INFLUENZA VACCINE, ADJUVANTE D, QUADR. (FLUAD QUADRIVALENT; 65Y+) (AIIV4) 01/17/2023 INFLUENZA VACCINE, QUADR. (A FLURIA, FLUZONE QUADRIVALENT; 6MO+) (IIV4) 02/11/2015 INFLUENZA VACCINE, QUADR. (F LUZONE; FLULAVAL; FLUARIX; AFLURIA QUADRIVALENT; 6MO+), 0.5 ML (IIV4) 01/03/2022,05/04/2021,01/18/2020, 019,01/24/2018,02/14/2017 TDAP, HISTORIC VACCINE 02/23/2016 Social History Tobacco Use Types Packs/Day Years Used Date Smoking Tobacco: Former Cigarettes Q uit: 12/05/1977 Smokeless Tobacco: Never Tobacco Cessation:Counseling Given: No Alcohol Use Standard Drinks/Week Comments No 0 [...] medical care, and heating? Somewhat hard 05/16/2023 [facility] [place] of Occupat ional Health - Occupational Stress [...] place to sleep or slept in a retirement (including now)? No 05/16/2023 Sex and Gender Information Value Date Recorded Sex Assigned at Not on file Gender Identity Not on file Sexual Orientation Not on file Last Filed Vital Signs Vital Sign Reading Time Taken Comments Blood Pressure 118/81 08/01/2023 5:20 AM CDT Pulse 69 08/01/2023 5:20 AM CDT Temperature 36.5 ??C (97.7 ??F) 08/01/2023 5:20 AM CD T Respiratory Rate 18 08/01/2023 5:20 AM CDT Oxygen Saturation 95% 08/01/2023 5:20 AM CDT Inhaled Oxygen Concentration 21% 07/30/2023 1 :03 AM CDT Weight 123.8 kg (272 lb 15.7 oz) 2023 5:54 PM CDT Height 154.9 cm (5' 0.98 ) 07/28/2023 5:54 PM CD T Body Mass Index 51.61 07/28/2023 5:54 PM CDT Functional Status Functional Status Response Date of [...] person have difficulty concentrating/remembering/making decisions? No 02/22/2023 Plan of Treatment Not on file Medical Devices Implanted Type Area Events Specialist Device Identifier Shelf Expiration Date Model / Serial / Lot Lead Nrstm 60cm Penta 3mm Pdl 16 Chnl Implanted:Qt y: 1 on 09/16/2021 by Maxi Gregg MD at [facility] Right: Spine Thoracic [employer] [id number] / / Description:CAMILO Slnt Dura Duraseal Pg Trilysine Amine 5 Implanted:Qt y: 1 on 09/16/2021 by Maxi Gregg MD at [facility] Right: Spine Thoracic [employer] David [id number] / / Description:CAMILO Proclaim Plus 5 Implanted:Qt y: 1 on 02/16/2023 by Maxi Gregg MD at [facility] Left: Back Cardenas Spine [id number] 11/07/2024 [id number] / [id number] / Explanted Type Area Events Specialist Device Identifier Shelf Expiration Date Model / Serial / Lot Gntr Nrstm [id number] Proclaim Elt Implanted:Qty: 1 on 09/16/2021 by Maxi Gregg MD at [facility] Explanted:Qty: 1 on 10/30/2021 by Maxi Gregg MD at [facility] Right: Spine Thoracic [employer] [id number] / / Description:CAMILO Procedures Procedure Name Priority Date/Time Associated Diagnosis Comments RENAL FUNCTION PANEL AM Draw 07/30/2023 1:28 AM CDT HEPATITIS C AB SCREEN RFLX NAAT QUANT STAT 02/21/2023 6:30 PM CDT HEMOGLOBIN A1C Routine 12/25/2022 3:56 AM CDT from Last 3 Months or Most Recently Relevant to Health Maintenance Results * (ABNORMAL) RENAL FUNCTION PANEL (07/30/2023 1:28 AM CDT) BUN 20 7 - 26 mg/dL 07/30/2023 2:31 AM [facility] Creatinine 0.67 0.56 - 0.96 mg/dL 07/30/2023 2:31 AM [facility] Sodium 136 136 - 145 mmol/L 07/30/2023 2:31 AM [facility] Potassium 4.4 3.5 - 4.5 mmol/L 07/30/2023 2:31 AM [facility] Chloride 101 98 - 107 mmol/L 07/30/2023 2:31 AM [facility] CO2 27 22 - 29 mmol/L 07/30/2023 2:31 AM [facility] Glucose 238(H) 70 - 115 mg/dL 07/30/2023 2:31 AM [facility] Albumin 2.9(L) 3.4 - 5.0 g/dL 07/30/2023 2:31 AM [facility] Calcium 9.4 8.4 - 10.2 mg/dL 07/30/2023 2:31 AM [facility] Phosphorus 3.0 2.9 - 5.1 mg/dL 07/30/2023 2:31 AM [facility] Anion Gap 8 6 - 16 07/30/2023 2:31 AM [facility] BUN/Creatinine Ratio 30(H) 7 - 23 07/30/2023 2:31 AM [facility] Osmolality Calculated 292 275 - 295 mOsm/kg 07/30/2023 2:31 AM [facility] eGFR by CKD-EPI >90 >=90 mL/min/1.7 3 m2 07/30/2023 2:31 AM [facility] Blood BLOOD SPECIMEN / Unknown Lab Venipuncture / Unknown 07/30/2023 1:28 AM CDT 07/30/2023 2:04 AM CDT Brian Bravo MD LAB - CHEMISTRY ANGEL SPEARS Performing Organization Address [facility]/ZIP Co de Phone Number [address] [address], [facility] [phone] * HEPATITIS C AB SCREEN RFLX NAAT QUANT (02/21/2023 6:30 PM CDT) [facility] Hepatitis C Antibody Non-react hugh Non-reac tive 02/21/2023 7:32 PM CDT [facility] Comment:Hepatitis C Antibody screen indicates no serologic evidence of past or current infection with Hepatitis C Virus. Patients with unexplained liver disease who are immunocompromised or suspected of having acute Hepatitis C infection may benefit from Nucleic Acid Test (VIVEK) for Hepatitis C Viral RNA to confirm Hepatitis C status. Blood BLOOD SPECIMEN / Unknown Venipuncture / Unknown 02/21/2023 6:30 PM CDT 02/21/2023 6:34 PM CDT Epi Solitario MD LAB - CHEMISTRY ANGEL SPEARS Performing Organization Address [facility]/ZIP Co de Phone Number [address] [address], [facility] [phone] * (ABNORMAL) HEMOGLOBIN A1C (12/25/2022 3:56 AM CDT) Pathologist [facility] Hemoglobin A1c 8.6(H) <=5.6 % 12/25/2022 2:47 PM CDT [facility] Estimated Average Glucose 200 mg/dL 12/25/2022 2:47 PM CDT [facility] Comment: HbA1c Interpretation: Normal : < 5.7% Pre-diabetes: 5.7-6.4% Diabetes: Equal to or greater than 6.5% Test results diagnostic of diabetes should be repeated for confirmation. Treatment target values recommended by ADA and other clinical organizations should be used to evaluate metabolic control in patients. Reference: [place] [employer], Standards of Care in Diabetes -2020 In patients 70 years and older consider HbA1c target range of 7.0-7.5% (Reference: Travis Storey et al. JAMDA. 2012) The Sebia assay for the measurement of HbA1c is a National Glycohemoglobin Standardization Program (NGSP) certified method. Blood BLOOD SPECIMEN / Unknown Lab Venipuncture / Unknown 12/25/2022 3:56 AM CDT 12/25/2022 4:30 AM CDT Jerrod Rodriguez MD LAB - CHEMISTR Y ORDERABLES [facility] [address] [place] [address], [facility] [phone] from Last 3 Months or Most Recently Relevant to Health Maintenance Advance Directives * Full Code (Latest Code Status on File) Date Activated Date Inactivated Comments 07/26/2023 11:42 PM 08/01/2023 6:01 PM * Full Code Date Activated Date Inactivated Comments 06/16/2023 8:11 PM 06/17/2023 2:06 PM * Full Code Date Activated Date Inactivated Comments 05/16/2023 12:11 AM 05/20/2023 7:16 PM * Full Code Date Activated Date Inactivated Comments 04/18/2023 11:11 AM 04/20/2023 4:58 PM * Full Code Date Activated Date Inactivated Comments 03/20/2023 3:37 AM 03/23/2023 7:14 PM Care Teams Bull Rider Relationship Specialty Start Date End Date Justen Gale MD PCP - General 07/05/21
--- OUTSIDE RECORDS SUMMARY | 2024-04-26 02:30 | XMS_ITS | Encounter Summary ---
Author Organization [facility] Address [address] [place] [address] Care Team Providers Care Senior Php Software Developer Name Role Phone Justen Gale MD Primary Care Provider [phone] Reason for Visit * Reason Comments Follow-up * Consult, Test & Treat (Routine) - Pending Review Specialty Diagnoses / Procedures Referred By Elyssa t Referred To Contact Neurological Surgery Diagnoses Left leg weakness Justen Gale MD [address] [place] [id number] Maxi Gregg MD [address] [place] [address] Referral ID Status Reason Start Date Expiration Date V isits Requested Visits Authorized [id number] Pending Review 06/05/2023 2024 12 12 Encounter Details Date Type Department Care Team (Late st Contact Info) Description 06/05/2023 1:15 PM SOLUTION CONSULTANT Office Visit [facility] - Neurosurgery [address] [place] [address] Rd [address] [place] [id number] Maxi Gregg MD [address] [place] [address] S/P insertion of spinal cord stimulator (Primary Dx) Social History Tobacco Use Types Packs/Day Years Used Date Smoking Tobacco: Former Cigarettes Q uit: 12/05/1977 Smokeless Tobacco: Never Tobacco Cessation:Counseling Given: Not Answered Alcohol Use Standard Drinks/Week Comments No 0 (1 standard drink = 0.6 oz pur e alcohol) AUDIT-C Answer Date Recorded Q1: How often do you have a drink containing alcohol? Never 05/16/2023 Q2: How many drinks containi ng alcohol do you have on a typical day when you are drinking? Patient does not drink Q3: How often do you have si x or more drinks on one occasion? Never 05/16/2023 Overall Financial Resource Strain (CARDIA) Answe r Date Recorded How hard is it for you to pa y for the very basics like food, housing, medical care, and heating? Somewhat hard 05/16/2023 [place] [facility] Occup[facility] ional Health - Occupational Stress [...] place to sleep or slept in a chcf (including now)? No 05/16/2023 Sex and Gender Information Value Date Recorded Sex Assigned at Not on file Gender Identity Not on file Sexual Orientation Not on file documented as of this encounter Last Filed Vital Signs Vital Sign Reading Time Taken Comments Blood Pressure 172/85 06/05/2023 1:34 PM SOLUTION CONSULTANT Pulse 82 06/05/2023 1:34 PM SOLUTION CONSULTANT Temperature 36.6 ??C (97.8 ??F) 06/05/2023 1:34 PM CS T Respiratory Rate - - Oxygen Saturation 97% 06/05/2023 1:34 PM SOLUTION CONSULTANT Inhaled Oxygen Concentration - - Weight 123.8 kg (273 lb) 06/05/2023 1:34 PM SOLUTION CONSULTANT Height 154.9 cm (5' 1 ) 06/05/2023 1:34 PM SOLUTION CONSULTANT Body Mass Index 51.58 06/05/2023 1:34 PM SOLUTION CONSULTANT documented in this encounter Functional Status Functional Status Response [...] No 02/22/2023 documented as of this encounter Patient Instructions * Patient Instructions* Melly Banks APRN-CNP - 06/05/2023 1:52 PM SOLUTION CONSULTANT Follow up with Dr. Gregg as needed For any questions please call Angeline (Dr. Gregg's nurse) at [phone] To schedule an appointment, please call [phone] If needed, the fax number is [phone] TION CONSULTANT documented in this encounter Progress Notes * Maxi Gregg MD - 06/05/2023 12:55 PM CST Clinic Note / Progress Note NAME: MOHSEN SALAZAR : 1955 AGE: 68 PROVIDER: Maxi Gregg MD SEX: F DATE: 06/05/2023 I had the pleasure of seeing Mrs. Salazar in the neurosurgery office today. HISTORY OF PRESENT ILLNESS: Mrs. Salazar is a very pleasant 67-year-old lady with a very complex history from the pain management standpoint. The patient had a spinal stimulation sytem placed in 2001with significant improvement in her back and leg pain. Unfortunately, she presented with infection requiring removal of the battery in the right lumbar region. She was submitted to placement of new battery in the left lumbar region by me on 02/16/2023. The patient reports that in the past two weeks, she has been feeling worsening of the pain in her lower back. She states she is still getting the same coverage she had during the trial. Social History Socioeconomic History Marital status: Spouse name: Not on file Number of children: Not on file Years of education: Not on file Highest education level: Not on file Occupational History Not on file Tobacco Use Smoking status: Former Packs/day: .5 Types: Cigarettes Quit date: 12/05/1977 Years since quittin.5 Smokeless tobacco: Never Vaping Use Vaping Use: Never used Substance and Sexual Activity Alcohol use: No Drug use: No Sexual activity: Not on file Other Topics Concern Not on file Social History Narrative Not on file Social Determinants of Health Financial Resource Strain: Medium Risk (05/16/2023) Overall Financial Resource Strain (CARDIA) Difficulty of Paying Living Expenses: Somewhat hard Food Insecurity: No Food Insecurity (05/16/2023) Hunger Vital Sign Worried About Running Out of Food in the Last Year: Never true Ran Out of Food in the Last Year: Never true Transportation Needs: No Transportation Needs (05/16/2023) PRAPARE - Transportation Lack of Transportation (Medical): No Lack of Transportation (Non-Medical): No Stress: No Stress Concern Present (05/16/2023) [place] [facility] - Occupational Stress Questionnaire Feeling of Stress : Not at all Housing Stability: Low Risk (05/16/2023) Housing Stability Vital Sign Unable to Pay for Housing in the Last Year: No Number of Places Lived in the Last Year: 1 Unstable Housing in the Last Year: No Past Medical History: Diagnosis Date Breast cancer ([facility]) Chest pain DVT (deep venous thrombosis) ([facility]) GERD (gastroesophageal reflux disease) LUL (obstructive sleep apnea) w cpap Other pulmonary embolism without acute cor pulmonale ([facility]) rls Type 2 diabetes mellitus without complications ([facility]) Past Surgical History: Procedure Laterality Date Arthroplasty Right Section Cholecystectomy, Laparoscopic FOOT SURGERY left foot tendon repair Hernia Repair Knee Arthroscopy bilateral Mastectomy REMOVAL HARDWARE/IMPLANT N/A 10/30/2021 N/A; REMOVAL OF INFECTED SPINAL CORD STIMULATOR BATTERY AND PADDLE LEAD-LEVEL 4 @ 1115 Spine Procedure/Surgery Left 02/16/2023 Left; PLACEMENT OF NEW BATTERY IN THE LEFT LUMBAR REGION WELL CONNECTION WITH HER PADDLE AND WIRE SYSTEM Thoracic Spine Laminectomy Right 09/16/2021 Right; THORACIC EIGHT- THORACIC NINE LAMINECTOMY FOR PLACEMENT OF A DORSAL COLUMN STIMULATION SYSTAM AND PLACEMENT OF THE BATTERY IN THE LOWER LUMBAR REGION Family History Problem Relation Name Age of Onset Heart Disease Mother Diabetes Mother Cancer Father Hemochromatosis Father Cancer Sister Heart Disease Brother Current Medications amoxicillin-clavulanate (Augmentin) 875-125 MG tablet Take 1 (one) tablet by mouth every 12 hours FOR 10 DAYS exemestane (AROMASIN) 25 MG tablet Take 1 (one) tablet by mouth DAILY HumaLOG KwikPen 100 UNIT/ML pen 26 (twenty six) Units 3 times daily before meals HYDROcodone-acetaminophen ([place]) 10-325 MG tablet Take 1 (one) tablet by mouth every 8 hours as needed for Pain Takes 3-4 times a day hydrOXYzine HCl (Atarax) 25 MG tablet Take 1 (one) tablet by mouth 3 times daily as needed for Itching insulin pen needle (B-D ULTRAFINE III SHORT PEN) 31G X 8 MM needle 4 times daily Lancets (ONETOUCH DELICA PLUS 33G EXTRA FINE LANCET) USE FOUR TIMES DAILY Lantus SoloStar pen 40 (forty) Units once lidocaine (Lidoderm) 5 % patch Apply 1 (one) patch to skin every 24 hours Apply patch to most painful area and remove after 12 hours. May reapply a new patch 12 hours later. methenamine hippurate (Hiprex) 1 GM tablet TAKE 1 TABLET BY MOUTH TWICE DAILY Multiple Vitamins-Minerals (Multivitamin Womens 50+ Adv) TABS Take 1 tablet by mouth once daily ONETOUCH ULTRA test strip 4 times daily oxyBUTYnin CR 24hr (Ditropan XL) 15 MG tablet Take 1 (one) tablet by mouth once daily rivaroxaban (Xarelto) 20 MG tablet Take 1 (one) tablet by mouth daily with food Reasons: Blockage of Blood Vessel to Lung by a Particle, Blood Clot in a Deep Vein rOPINIRole (REQUIP) 5 MG tablet TAKE 1 TABLET BY MOUTH EVERY NIGHT PHYSICAL EXAMINATION: The patient is in moderate discomfort, but in no acute distress. She has fullstrength in the lower limbs of tested muscles. Reflexes are physiologic and symmetric at 1+ in the lower limbs. She has some distal hypoesthesia in the lower limbs compatible with the diagnosis of peripheral polyneuropathy. REVIEW OF DIAGNOSTIC STUDIES: The patient had previous x-rays of the thoracic spine performed on 05/28/2023 that revealed a paddle lead between the center of the T8-T9 disk space. Recent EMG showed combination of large fiber sensory motor chronic polyneuropathy as well as lumbosacral radiculopathy even though the paraspinals were not done because of bleeding risk from anticoagulation. Involvement of peroneal nerve is asymmetric, more on the left compared to the right. MEDICAL DECISION MAKING: I told the patient that unfortunately she is not experiencing the same improvement she had during the initial placement of spinal stimulation system. Therefore, we will coordinate for her to meet with the [employer] solar sales representative and assessor in order to adjust her stimulation parameters. At this point I don't believe that any additional neurosurgical intervention is indicated for her. Thank you for allowing us to participate in the care of the patient. MD AMITA Varghese/macarena .[id number] .[id number] Doc ID: [id number] Voice Job ID: [id number] TION CONSULTANT documented in this encounter Plan of Treatment Not on file documented as of this encounter Visit Diagnoses Diagnosis S/P insertion of spinal cord stimulator- Primary documented in this encounter Care Teams Senior Php Software Developer Relationship Specialty Start Date End Date Justen Gale MD PCP - General 07/05/21 documented as of this encounter
--- OUTSIDE RECORDS SUMMARY | 2024-04-26 02:30 | XMS_ITS | Encounter Summary ---
Author Organization [facility] Address [address] [place] [address] Care Team Providers Care Handbag Frames Inspector Name Role Phone Justen Gale MD Primary Care Provider [phone] Encounter Details Date Type Department Care Team (Latest Contact Info) Description 02/05/2024 Travel Social History Tobacco Use Types Packs/Day [...] medical care, and heating? Somewhat hard 05/16/2023 [facility] of Occupat ional Health - Occupational Stress [...] on filedocumented in this encounter Care Teams Handbag Frames Inspector Relationship Specialty Start Date End Date Justen Gale MD PCP - General 07/05/21 documented as of this encounter
--- OUTSIDE RECORDS SUMMARY | 2024-04-26 02:30 | XMS_ITS | Encounter Summary ---
Author Organization [facility] Address [address] [facility] [place] [address] Care Team Providers Care Carbon Coater Machine Operator Name Role Phone Justen Gale MD Primary Care Provider [phone] Reason for Visit * Reason Onset Date Comments Transitions Of Care 08/22/2023 Encounter Details Date Type Department Care Team (Late st Contact Info) Description 08/22/2023 Telephone [facility] COORDINATION [address] [place] [phone] Opal Burch, RN Transitions Of Care Social History Tobacco Use Types Packs/Day Years [...] medical care, and heating? Somewhat hard 05/16/2023 [facility] [place] of Occupat ional Health - Occupational Stress [...] place to sleep or slept in a fpc (including now)? No 05/16/2023 Sex and Gender [...] encounter Miscellaneous Notes * Telephone Encounter - Opal Burch RN - 08/22/2023 12:11 PM CDT Transition Plastic Shaper (TCC) Kary burch RN post discharge follow-up contact by telephone: Patient with recent IP discharge from [facility] on 07/31 and had Readmission risk assessment (score of 25). As such, Patient receiving 1-2 week follow-up call. This TCC contacted pt by telephone ([phone]) to complete pt post-discharge follow-up contact. 1) How are you feeling? I'm doing better, I just got out of the hospital last week 2) How is your mobility? walker 3) New concerns or problems? No current issues 4) Have you had to go the ER for any reason? x1 admitted to [facility] system dc 1 week ago 5) Any questions about your discharge diagnosis and instructions? No questions at present 6) Do you have a follow up appointment made? [facility] fu appt reviewed, pt encouraged to fu w PCP 7) Do you currently have home health, any questions about home care? na 8) Have you filled all of your RX's? [facility] scripts filled 9) Any questions or concerns that we can help you with? Contact info shared w pt pt verbalized that she is feeling better. TCC inquired re: whether Patient has had any problems or questions since dc. Pt stated, she was recently dced from [facility] last week. pt indicated she was able to obtain all of her medications without incident. pt indicated she is taking all medications as prescribed. no symptoms related to dc meds. pt denied any current medical and psychosocial needs. Patient was seen in OSH and admitted x1. pt denied any questions related to diet, medications, or condition at this time. TCC encouraged pt to call this medical technical writer with questions, concerns, barriers to care, and/or additional resources if needed. pt verbalized understanding and agreement with plan. TCC will co ntinue to provide post-discharge monitoring for 30 days post-discharge with target end date of program and intervention(s) set for 08/29. no follow-up needs identified or indicated at this time. Call Duration: 20 min Opal Burch RN, MSN Transition Plastic Shaper Office: [phone] 08/22/2023 documented in this encounter Plan of Treatment Not on file documented as of this encounter Visit Diagnoses Not on filedocumented in this encounter Care Teams Carbon Coater Machine Operator Relationship Specialty Start Date End Date Justen Gale MD PCP - General 07/05/21 documented as of this encounter
--- OUTSIDE RECORDS SUMMARY | 2024-04-26 02:30 | XMS_ITS | Clinical Summary ---
Author Organization [facility] Address [address] [facility] [address] Care Team Providers Care Software Testing Specialist Name Role Phone Justen Gale MD Primary Care Provider [phone] Source Comments [facility],non-[facility] Affiliates and Associated Physician Practices is amultiple site organization consisting of ambulatory clinics and hospital sitesin [place], [place], [place] and [place]. This disclosure is being madepursuant to the Care Everywhere program and may not contain all information available regarding this patient. Last updated 18.[facility] [employer] Allergies Active Allergy Reactions Criticality Noted Date [...] Gluc Sensor (FreeStyle Eileen 2 Sensor Systm) [facility] APPLY 1 SENSOR AND WEAR FOR 14 [...] Diagnosed Date Resolved Date Rash 03/21/2023 04/18/2023 Encounters Date Type Department Care Team Description 03/08/2024 Orders Only [facility] - [facility]rology [address] [place] [address] Caroline Sultana, NURIS 02/07/2024 Orders Only [facility] - Orthopedics [address] [place] [address], [place] [address] Patrick Flynn APRN-CHEESE WEIGHER 02/05/2024 Travel 01/26/2024 Telephone [facility] - Orthopedics [address] [place] [address], [place] [address] Maldonado Christianson MD Appointment (Referral ) from Last 3 Months Immunizations Name Administration Dates Next Due INFLUENZA [...] (IIV4) 01/03/2022,05/04/2021,01/18/2020, 019,01/24/2018,02/14/2017 TDAP, HISTORIC VACCINE 02/23/2016 Family History Medical History Relation Name Comments Heart Disease Brother Cancer Father Hemochromatosis Father Diabetes Mother Heart Disease Mother Cancer Sister Relation Name Status Comments Brother Father Mother Sister Social History Tobacco Use Types Packs/Day Years [...] medical care, and heating? Somewhat hard 05/16/2023 [place] of Occupat ional Health - Occupational Stress [...] place to sleep or slept in a penitentiary (including now)? No 05/16/2023 Sex and Gender [...] Weight 123.8 kg (272 lb 15.7 oz) 07/28/2023 5:54 PM CDT Height 154.9 cm (5' 0.98 ) 07/28/2023 5:54 PM CD T Body Mass Index 51.61 07/28/2023 5:54 PM CDT Plan of Treatment Health Maintenance Due Date Last Done Comments COLOGUARD (AGES 45-75) - COLON CA SCREENING 1955 COLON MONITORING 1955 COLONOSCOPY - COLON CA SCREENING 1955 CT COLONOGRAPHY - COLON CA SCREENING 1955 Colorectal Cancer Screening 1955 FIT - COLON CA SCREENING 1955 FLEX SIG - COLON CA SCREENING 1955 PNEUMOCOCCAL VACCINE 65+ (1 of 2 - PCV) 1962 DIABETES-STATIN 1996 ZOSTER VACCINE (1 of 2) 2006 Respiratory Syncytial Virus (RSV) Vaccine Pt: or over 60 yrs (1 - Risk 60-74 years 1-dose series) 2016 MAMMOGRAM 08/19/2018 08/19/2016, 08/23, 09/10/2014 DIABETES RETINOPATHY SCREENING 10/04/2021 DIABETES-FOOT EXAM WITH MONOFILAMENT 10/04/2021 DIABETES-HGB A1C 03/26/2023 12/25/2022, 10/31/2021 DEPRESSION SCREENING 04/24/2023 DIABETES - URINE PROTEIN SCREENING 04/24/2023 MEDICARE AWV ? CALENDAR YEAR 2023 COVID-19 VACCINE ( season) 2023 05/04/2021, 06/29/2020 INFLUENZA VACCINE (#1) 2023 , 01/17/2023, 01/03/2022, Additional history exists DIABETES-SERUM CREATININE 07/29/20242023, 07/26/2023, 06/16/2023, Additional history exists DTAP/TDAP/TD VACCINES (2 - Td or Tdap) 02/22/2026 02/23/2016 BONE DENSITY TESTING Completed 08/02/2022, 11/10/2020, 05/15/2017 HEPATITIS C SCREENING Completed 02/21/2023 HEPATITIS B VACCINE Aged Out No longe r eligible based on patient's age to complete this topic HIB VACCINE Aged Out No longer eligi ble based on patient's age to complete this topic HPV VACCINE Aged Out No longer eligi ble based on patient's age to complete this topic MENINGOCOCCAL VACCINE Aged Out No princess lencho eligible based on patient's age to complete this topic Medical Devices Implanted Type Area Supervisor Drawing Device Identifier Shelf Expiration Date Model / Serial / Lot Lead Nrstm 60cm Penta 3mm Pdl 16 Chnl Implanted:Qt y: 1 on 09/16/2021 by Maxi Gregg MD at [facility] Right: Spine Thoracic [employer] [id number] / / Description:CAMILO Slnt Dura Duraseal Pg Trilysine Amine 5 Implanted:Qt y: 1 on 09/16/2021 by Maxi Gregg MD at [facility] Right: Spine Thoracic Inte[employer] David / / Description:CAMIOL Proclaim Plus 5 Implanted:Qt y: 1 on 02/16/2023 by Maxi Gregg MD at [facility] Left: Back [employer] Spine [id number] 11/07/2024 [id number] / [id number] / Explanted Type Area Supervisor Drawing Device Identifier Shelf Expiration Date Model / Serial / Lot Gntr Nrstm [id number] Proclaim Elt Implanted:Qty: 1 on 09/16/2021 by Maxi Gregg MD at [facility] Explanted:Qty: 1 on 10/30/2021 by Maxi Gregg MD at [facility] Right: Spine Thoracic [employer] [id number] / / Description:JJ Procedures Procedure Name Priority Date/Time Associated Diagnosis [...] 07/30/2023 1:28 AM CDT 07/30/2023 2:04 AM [facility] Brian Bravo MD LAB - CHEMISTRY ANGEL Herrera Organization Address City/State/ZIP Co de Phone Number [facility] [address] [place] [address] [phone] * HEPATITIS C AB SCREEN RFLX NAAT QUANT (02/21/2023 6:30 PM CDT) Pathologist [facility] Hepatitis C Antibody Non-react hguh Non-reac tive 02/21/2023 7:32 PM CDT [facility] Comment:Hepatitis C Antibody screen indicates no serologic [...] Solitario MD LAB - CHEMISTRY ANGEL SPEARS [facility] Organization Address City/State/ZIP Co de Phone Number [facility] [address] [place] [phone] [phone] * (ABNORMAL) HEMOGLOBIN A1C (12/25/2022 3:56 AM CDT) Pathologist [facility] Hemoglobin A1c 8.6(H) <=5.6 % 12/25/2022 2:47 PM CDT [facility] Estimated Average Glucose 200 mg/dL 12/25/2022 2:47 PM CDT [facility] Comment: HbA1c Interpretation: Normal : < 5.7% Pre-diabetes: 5.7-6.4% Diabetes: Equal to or greater than 6.5% Test results diagnostic of diabetes should be repeated for confirmation. Treatment target values recommended by ADA and other clinical organizations should be used to evaluate metabolic control in patients. Reference: [place] [employer], Standards of Care in Diabetes [...] Rodriguez MD LAB - CHEMISTR Y ORDERABLES [place] [address] [place] [address], [facility] [phone] from Last 3 Months or Most Recently [...] 3:37 AM 03/23/2023 7:14 PM Care Teams Software Testing Specialist Relationship Specialty Start Date End Date Justen Gale MD PCP - General 07/05/21
--- OUTSIDE RECORDS SUMMARY | 2024-04-26 02:30 | XMS_ITS | Encounter Summary ---
Author Organization [facility] Address [address] [facility] [place] [address] Care Team Providers Care Decorator Consultant Name Role Phone Justen Gale MD Primary Care Provider [phone] Encounter Details Date Type Department Care Team (Late st Contact Info) Description 07/12/2023 Orders Only [facility] - Urology [address] [place] [address] Caroline Sultana RN Social History [...] medical care, and heating? Somewhat hard 05/16/2023 [facility] [place] of Occupat ional Health - Occupational Stress [...] place to sleep or slept in a mcc (including now)? No 05/16/2023 Sex and Gender [...] on filedocumented in this encounter Care Teams Decorator Consultant Relationship Specialty Start Date End Date Justen Gale MD PCP - General 07/05/21 documented as of this encounter
--- OUTSIDE RECORDS SUMMARY | 2024-04-26 02:30 | XMS_ITS | Encounter Summary ---
Author Organization [facility] Address [address] [facility] [place] [address] Care Team Providers Care Brass Finisher Name Role Phone Justen Gale MD Primary Care Provider [phone] Encounter Details Date Type Department Care Team (Latest Contact Info) Description 07/03/2023 Travel Social History Tobacco Use Types Packs/Day [...] medical care, and heating? Somewhat hard 05/16/2023 [facility] [place] of Occupat ional Health - Occupational Stress [...] place to sleep or slept in a jail (including now)? No 05/16/2023 Sex and Gender [...] on filedocumented in this encounter Care Teams Brass Finisher Relationship Specialty Start Date End Date Justen Gale MD PCP - General 07/05/21 documented as of this encounter
--- OUTSIDE RECORDS SUMMARY | 2024-04-26 02:30 | XMS_ITS | Encounter Summary ---
Author Organization [facility] Address [address] [place] [address] Care Team Providers Care Director Market Intelligence Name Role Phone Justen Gale MD Primary Care Provider [phone] Reason for Visit * Reason Comments Establish Care * Consult, Test & Treat (Routine) - Closed Specialty Diagnoses / Procedures Referred By Elyssa t Referred To Contact Neurological Surgery Diagnoses Follow-up exam Justen Gale MD [address] [place] [id number] Maxi Gregg MD [address] [place] [address] [address] [place] [address] Referral ID Status Reason Start Date Expiration Date Visits Re quested Visits Authorized [id number] Closed 07/17/2023 07/16/2024 1 1 Encounter Details Date Type Department Care Team (Late st Contact Info) Description 07/17/2023 2:45 PM CDT Office Visit [facility] - Neurosurgery [address] [place] [address], [place] [address] Maxi Gregg MD [address] [place] [address] [address] [address] S/P insertion of spinal cord stimulator (Primary Dx); Chronic bilateral low back pain without sciatica Social History Tobacco Use Types Packs/Day Years [...] medical care, and heating? Somewhat hard 05/16/2023 [facility] Occupat ional Health - Occupational Stress [...] place to sleep or slept in a prison (including now)? No 05/16/2023 Sex and Gender Information Value Date Recorded Sex Assigned at Not on file Gender Identity Not on file Sexual Orientation Not on file documented as of this encounter Last Filed Vital Signs Vital Sign Reading Time Taken Comments Blood Pressure 158/94 07/17/2023 2:39 PM CDT Pulse 80 07/17/2023 2:39 PM CDT Temperature 36.7 ??C (98 ??F) 07/17/2023 2:39 PM CDT Respiratory Rate - - Oxygen Saturation 97% 07/17/2023 2:39 PM CDT Inhaled Oxygen Concentration - - Weight 123.8 kg (273 lb) 07/17/2023 2:39 PM CDT Height 154.9 cm (5' 1 ) 07/17/2023 2:39 PM CDT Body Mass Index 51.58 07/17/2023 2:39 PM CDT documented in this encounter Functional Status Functional [...] * Patient Instructions* Melly Banks APRN-CNP - 07/17/2023 2:55 PM CDT Follow up with Dr. Gregg as needed For any questions please call Angeline (Dr. Gregg's nurse) at [phone] To schedule an appointment, please call [phone] If needed, the fax number is [phone] documented in this encounter Progress Notes * Melly Banks APRN-CNP - 07/17/2023 2:48 PM CDT Neurosurgery Clinic Progress Note Chief Complaint (CC): follow up [facility] HISTORY OF PRESENT ILLNESS (HPI): Patient is a 68 year old female with a PMH of s/p chronic axial low??back pain s/p??T9-8 laminectomy for dorsal root column stimulator placement??with [employer] system??on 09/16/21 c/b infection requiring removal of battery with replacement of new battery in the left lumbar region by Dr. Gregg on 02/16/2023, who presents to clinic today to discuss possible removal of the device. When patient was last seen on 06/05/23 patient reported worsening of the pain in her lower back which resolved once the device was turned off. She also was concerned she wouldn't be able to obtain back injections with thedevice in place. Patient presents to clinic today accompanied by the [employer] rep. Since she was last seen, she continues to report her worsening low back pain has improved as the device remained off but does continue to endorse her back chronic back pain. She spoke with her pain management physician who noted her device does not need to be removed in order to obtain back injections. PMH: Past Medical History: Diagnosis Date ??? Breast cancer (HCC) ??? Chest pain ??? DVT (deep venous thrombosis) ([facility]) ??? GERD (gastroesophageal reflux disease) ??? LUL (obstructive sleep apnea) w cpap ??? Other pulmonary embolism without acute cor pulmonale (HCC) ??? rls ??? Type 2 diabetes mellitus without complications ([facility]) PSH: Past Surgical History: Procedure Laterality Date ??? Arthroplasty Right ??? Section ??? Cholecystectomy, Laparoscopic ??? FOOT SURGERY left foot tendon repair ??? Hernia Repair ??? Knee Arthroscopy bilateral ??? Mastectomy ??? REMOVAL HARDWARE/IMPLANT N/A 10/30/2021 N/A; REMOVAL OF INFECTED SPINAL CORD STIMULATOR BATTERY AND PADDLE LEAD-LEVEL 4 @ 1115 ??? Spine Procedure/Surgery Left 02/16/2023 Left; PLACEMENT OF NEW BATTERY IN THE LEFT LUMBAR REGION WELL CONNECTION WITH HER PADDLE AND WIRE SYSTEM ??? Thoracic Spine Laminectomy Right 09/16/2021 Right; THORACIC EIGHT- THORACIC NINE LAMINECTOMY FOR PLACEMENT OF A DORSAL COLUMN STIMULATION SYSTAM AND PLACEMENT OF THE BATTERY IN THE LOWER LUMBAR REGION Meds: Current Outpatient Medications Medication ??? amoxicillin-clavulanate (Augmentin) 875-125 MG tablet ??? Continuous Blood Gluc Sensor (FreeStyle Eileen 2 Sensor Systm) MISC ??? cyclobenzaprine (Flexeril) 5 MG tablet ??? exemestane (AROMASIN) 25 MG tablet ??? gabapentin (Neurontin) 300 MG capsule ??? HumaLOG KwikPen 100 UNIT/ML pen ??? HYDROcodone-acetaminophen ([place]) 10-325 MG tablet ??? hydrOXYzine HCl (Atarax) 25 MG tablet ??? insulin pen needle (B-D ULTRAFINE III SHORT PEN) 31G X 8 MM needle ??? Lancets (ONETOUCH DELICA PLUS 33G EXTRA FINE LANCET) ??? Lantus SoloStar pen ??? lidocaine (Lidoderm) 5 % patch ??? methenamine hippurate (Hiprex) 1 GM tablet ??? Multiple Vitamins-Minerals (Multivitamin Womens 50+ Adv) TABS ??? naloxone HCl (Narcan) 4 MG/0.1ML nasal spray ??? ondansetron, disintegrating, (Zofran ODT) 4 MG tablet ??? ONETOUCH ULTRA test strip ??? oxyBUTYnin CR 24hr (Ditropan XL) 15 MG tablet ??? polyethylene glycol 3350 (Miralax) 17 g packet ??? rivaroxaban (Xarelto) 20 MG tablet ??? rOPINIRole (REQUIP) 5 MG tablet No current facility-administered medications for this visit. Allergies Allergies Allergen Reactions ??? Latex Rash ??? Ceftriaxone Anaphylaxis and Shortness of Breath R ??? Cephalosporins Anaphylaxis and Shortness of Breath ??? Lorazepam Other and Unknown Aggrevates restless leg syndrome ??? Trazodone Anaphylaxis and Other Shaky, restlessness, itching, throat swelling ??? Contrast-Iodinated Agents For Ct/Other Rash ??? Levofloxacin Urticaria and Skin Reactions ??? Macrobid [Nitrofurantoin] Rash ??? Lisinopril Swelling ??? Ketorolac Itching ??? Metoclopramide Other Twitching ??? Oxycodone Nausea and/or Vomiting ??? Pregabalin Other ??? Ceftriaxone Sodium In Dextrose Shortness of Breath ??? Adhesive Sensitivity Rash ??? Amlodipine Base Swelling Leg swelling Leg swelling ??? Piperacillin-Tazobactam In D5w Rash ??? Bactrim [Sulfamethoxazole W-Trimethoprim] Vomiting ??? Reslizumab Unknown ??? Skin Adhesives Skin Reactions Social: Social History Tobacco Use ??? Smoking status: Former Packs/day: .5 Types: Cigarettes Quit date: 12/05/1977 Years since quittin.6 ??? Smokeless tobacco: Never Substance Use Topics ??? Alcohol use: No Family: Family History Problem Relation Name Age of Onset ??? Heart Disease Mother ??? Diabetes Mother ??? Cancer Father ??? Hemochromatosis Father ??? Cancer Sister ??? Heart Disease Brother REVIEW OF SYSTEMS Constitutional: Negative Eyes: Negative Ears, nose, mouth, throat, and face: Negative Respiratory: Negative Cardiovascular: Negative Gastrointestinal: Negative Genitourinary:negative Integument/breast: negative Hematologic/lymphatic: Negative Musculoskeletal:Negative Neurological: see HPI Behavioral/Psych: Negative PHYSICAL EXAM BP 158/94 Pulse 80 Temp 98 ??F (36.7 ??C) Ht 1.549 m (5' 1 ) Wt 123.8 kg (273 lb) SpO2 97% General: NAD Cardiovascular: warm, well profused Respiratory: non-labored breathing Abdominal: Soft, non tender, non distended Integument: thoracic incision and left lumbar incision completely healed Vascular: capillary refill <3 seconds Neuro: Mental status: Alert, attentive, and oriented x3 (name, place, date). Speech is clear and fluent. Motor: Muscle bulk and tone are normal. Hip Flexor Quad Hamstring Tib Ant Gastroc EHL Right 5 5 5 5 5 5 Left 5 5 5 5 5 5 Reflexes: Patellar Right 1+ Left 1+ Sensory: distal hypoesthesia in the lower limbs Coordination: No fasciculations Gait/Stance: ambulates with cane RADIOLOGY: No new imaging Assessment/Plan: Karly Marques is a 68 year old female with chronic axial low back pain s/p insertion of spinal stimulator (with Dr. Gregg in 02/13) who presents to clinic today to discuss possible removal of the device as it was causing worsening low back pain. Since the device has remained off, she reports improvement in her acute back pain. She spoke with her pain management physician who noted her devicedoes not need to be removed in order to obtain back injections. Explained to patient as her back pain has returned to her baseline level of pain with the device off, no neurosurgical intervention is warranted. Also discussed with patient and [employer] rep of potentially turning device back on in the future at a very low setting to monitor for any relief of her chronic back pain. Patient agreeable toabove and will follow up with Dr. Gregg as needed. Melly Banks, [employer] 07/17/2023 2:48 PM CC: Jusetn Gale MD (PCP) documented in this encounter Plan of Treatment Not on file documented as of this encounter Visit Diagnoses Diagnosis S/P insertion of spinal cord stimulator- Primary Chronic bilateral low back pain without sciatica documented in this encounter Care Teams Director Market Intelligence Relationship Specialty Start Date End Date Justen Gale MD PCP - General 07/05/21 documented as of this encounter
--- OUTSIDE RECORDS SUMMARY | 2024-04-26 02:30 | XMS_ITS ---
Author Organization [facility] Address [address] [place] [address] Care Team Providers Care Husker Operator Name Role Phone Justen Gale MD Primary Care Provider [phone] Active Problems Problem Noted Date Diagnosed Date [...] home - Continue home CPAP Neuropathy 07/05/2017 Current Oncology Plans No current plan information found. Past Plans No past plan information found. Radiation Treatments * No radiation treatments are documented for this patient in [facility]. Treatments may have been administered in another system. Lifetime Dose Tracking * Chemical Lifetime Dose Automatic Entry Manual Entr y Dose Length Product 1,838 mGy-cm 1,838 mGy-cm 0 mGy-cm Resolved Problems Problem Noted Date Diagnosed Date Resolved Date Rash 03/21/2023 04/18/2023
--- OUTSIDE RECORDS SUMMARY | 2024-04-26 02:30 | XMS_ITS | Encounter Summary ---
Author Organization [facility] Address [address] [facility] [place] [address] Care Team Providers Care River Tester Name Role Phone Justen Gale MD Primary Care Provider [phone] Reason for Referral * Evaluate & Treat (Routine) - Closed Specialty Diagnoses / Procedures Referred By Elyssa benavides Referred To Contact Allergy and Immunology Diagnoses Urinary incontinence, unspecified type Kip Rocha MD [address] [place] [address] [facility] [address] [facility], [place] [address] Referral ID Status Reason Start Date Expiration Date V isits Requested Visits Authorized [id number] Closed Discharge Follow-up 07/28/2023 07/27/2024 1 1 Reason for Visit * Reason Comments Pain Back Pt bibems from OSH f or back pain. Pt had a neuro pain stimulator installed that was recently shut off~6 weeks ago due to lack of efficacy. Pt's back gave out 3 days ago and pt has been experiencing sever pain since. Pt has been experiencing urinary incontinence since then and also endorses funny bowel movements that feel small and incomplete. A&O4, GCS 15. * Auth/Cert (Routine) Specialty Diagnoses / Procedures Referred By Elyssa benavides Referred To Contact Diagnoses fall; extreme back pain urinary incontinence, poor rectal tone unable to bear down or squeeze rectum; pt of Dr Gregg; neuro surg aware; report to Dr Martin Referral ID Status Reason Start Date Expiration Date Visits Re quested Visits Authorized [id number] 1 1 Encounter Details Date Type Department Care Team (Late st Contact Info) Description 07/26/2023 8:52 PM CDT - 08/01/2023 4:56 PM CDT Emergency [place] [id number] [facility] [place] [address] Choco Martin MD [address] [facility] DIV OF [place] [address] Cal Alicea MD [address] [facility] DIV OF EMERGENCY MEDICINE [place] Marvin Davey MD [facility] [address] [address] Kip Rocha MD [address] [place], [place] [id number] Brian Bravo MD [address] [facility] [address] DIV OF [place] [address] Watson Bearden MD [facility] [address] [facility] [address] Internal Medicine Discharge Disposition: Home or Self Care Social History Tobacco Use Types Packs/Day [...] medical care, and heating? Somewhat hard 05/16/2023 [facility] of Occupat ional Health - Occupational Stress [...] Mass Index 51.61 07/28/2023 5:54 PM CDT documented in this encounter Functional [...] No 02/22/2023 documented as of this encounter Discharge Summaries * Watson Bearden MD - 08/01/2023 1:55 PM CDT [facility] INTERNAL MEDICINE DISCHARGE SUMMARY PATIENT: Karly Marques 68 year old female : 1955 ADMISSION INFORMATION ADMISSION DISCHARGE Date: 07/26/2023 Date: 08/01/2023 Admitting Physician Marvin Davey MD Discharge Physician: Waston Bearden MD Present on Admission: ??? Breast cancer (HCC) ??? Chronic anticoagulation ??? Essential hypertension ??? Multiple subsegmental pulmonary emboli without acute cor pulmonale (CMS/HCC) ??? LUL (obstructive sleep apnea) ??? Restless legs syndrome (RLS) ??? S/P placement of nerve stimulator ??? Type 2 diabetes mellitus without complication (CMS/HCC) Discharge Diagnoses: acute on chronic lower back pain, UTI, DM2, Hx of PE/DVT Admission Condition: poor Discharged Condition: good Consults: Neurosurgery HOSPITAL COURSE Hospital Course: 1) Acute on chronic low back pain - seen by NSGY in ED who recommended medrol dose pack - continue PO pain meds - Given and tapered IV pain meds - continued bowel regimen - PT/OT - Discharged on PO opioids, recommend to continue to wean outpatient ?? 2) UTI - Urine cx with ecoli - s/p fosfomycin - Had symptoms on day of discharge: frequency, hesitance. UA concern for infection. Due to noted allergies, discussed with pharmacy and elected to prescribe augmentin on discharge ?? 3) Hx of PE/DVT - continue xarelto ?? 4) DM2 - continue lantus 30 units - aspart 18 u TID with meals - continue mounjaro on DC - gabapentin ?? 5) Hx Breast Ca - continue exemestane ?? 6) RLS - requip ?? 7) Neuropathy - gabapentin ?? 8) LUL - cpap Note to PCP (e.g. vitals, labs, imaging, medication start/stop, etc. to follow): - Wean opioids for lower back pain - Eval for resolution of UTI on augmentin as above Significant Diagnostic Studies: Labs this admission: CBC: Recent Labs Lab 07/30/2312707/26/23222506/16/23 0848 WBC 11.6* 10.0 8.4 HGB 12.0 11.7* 14.1 HCT 37.1 36.1 43.6 MCV 88.3 89.4 89.3 PLTCOUNT 265 268 292 BMP: Recent Labs Lab 07/30/2312707/26/23222506/16/23 0848 NA 136 141 135* POTASSIUM 4.4 3.9 3.7 CL 101 104 103 BUN 20 13 14 CREATININE 0.67 0.63 0.63 CALCIUM 9.4 9.5 9.9 CMP: Recent Labs Lab 07/30/2312707/26/23222506/16/23 0848 05/28/23 1621 04/17/23 2059 03/24/23 2338 AST -- 17 17 17 1 23 ALT -- 19 18 18 1 17 TBILI -- 0.5 0.6 -- -- 0.4 ALKPHOS -- 74 82 82 1 77 ALB 2.9* 3.1* 3.5 -- -- 3.3* PROT -- 7.5 8.9* -- -- 8.5* 1 = values in this interval not displayed. Coagulation: Recent Labs Lab Units 07/26/232225 PT Seconds 14.2 INR 1.1 Pending labs: urine culture Imaging: No results found. Discharge Exam: Vitals: BP 118/81 (BP Location: Right arm, Patient Position: Lying) Pulse 69 Temp 97.7 ??F (36.5 ??C) (Oral) Resp 18 Ht 1.549 m (5' 0.98 ) Wt 123.8 kg (272 lb 15.7 oz) SpO2 95% Gen: Alert, cooperative, no distress Head: Normocephalic, without obvious abnormality, atraumatic Eyes: Conjunctivae/corneas clear, EOMI Nose: Mucosa normal. No drainage. Throat: Moist mucous membranes Neck: No JVD, no carotid bruit, trachea midline Back: Symmetric, no curvature Resp: CTAB, no wheezes/crackles CV: RRR, S1S2, No M/R/G Abd: S/NT/ND, BS+, no bruits Ext: No clubbing, cyanosis, edema; no skin changes consistent with venous stasis or arterial disease Pulses: 2+ DP B Skin: Skin color, texture, turgor normal. No rashes or lesions Neuro: No focal deficits DISCHARGE PLANNING Disposition: Home Patient Instructions: Medication List START taking these medications acetaminophen 500 MG tablet Commonly known as: Tylenol Take 2 (two) tablets by mouth 3 times daily Maximum allowable Acetaminophen amount = 4 Grams (4000 mg) / 24 hours. oxyCODONE (immediate release) 10 MG tablet Commonly known as: Roxicodone Take 1 (one) tablet by mouth every 4 hours as needed CHANGE how you take these medications amoxicillin-clavulanate 875-125 MG tablet Commonly known as: Augmentin Take 1 (one) tablet by mouth 2 times daily for 7 days What changed: ?? when to take this ?? additional instructions CONTINUE taking these medications B-D ULTRAFINE III SHORT PEN 31G X 8 MM needle Generic drug: insulin pen needle 4 times daily exemestane 25 MG tablet Commonly known as: Aromasin Take 1 (one) tablet by mouth DAILY FreeStyle Eileen 2 Sensor Systm Misc gabapentin 300 MG capsule Commonly known as: Neurontin HumaLOG KwikPen 100 UNIT/ML pen Generic drug: insulin lispro hydrOXYzine HCl 25 MG tablet Commonly known as: Atarax Take 1 (one) tablet by mouth 3 times daily as needed for Itching Lantus SoloStar pen Generic drug: insulin glargine lidocaine 5 % patch Commonly known as: Lidoderm Apply 1 (one) patch to skin every 24 hours Apply patch to most painful area and remove after 12 hours. May reapply a new patch 12 hours later. methenamine hippurate 1 GM tablet Commonly known as: Hiprex Take 1 (one) tablet by mouth 2 times daily Multivitamin Womens 50+ Adv Tabs naloxone HCl 4 MG/0.1ML nasal spray Commonly known as: Narcan ondansetron (disintegrating) 4 MG tablet Commonly known as: Zofran ODT ONETOUCH DELICA PLUS 33G EXTRA FINE LANCET OneTouch Ultra test strip Generic drug: blood glucose oxyBUTYnin CR 24hr 15 MG tablet Commonly known as: Ditropan XL Take 1 (one) tablet by mouth once daily polyethylene glycol 3350 17 g packet Commonly known as: Miralax Take 17 (seventeen) g by mouth once daily rivaroxaban 20 MG tablet Commonly known as: Xarelto rOPINIRole 5 MG tablet Commonly known as: Requip STOP taking these medications HYDROcodone-acetaminophen 10-325 MG tablet Commonly known as: [place] ASK your doctor about these medications cyclobenzaprine 5 MG tablet Commonly known as: Flexeril Take 1 (one) tablet by mouth 3 times daily as needed (Muscle spasms) Where to Get Your Medications These medications were sent to [facility] [address] [facility] [address] [address] [facility] [address] ?? amoxicillin-clavulanate 875-125 MG tablet ?? oxyCODONE (immediate release) 10 MG tablet You can get these medications from any pharmacy You don't need a prescription for these medications ?? acetaminophen 500 MG tablet Discharge Instructions A Note From Your Doctors: Ms. Karly Marques, You were admitted to the hospital for back pain. We gave you medications to control this pain. Additionally you were found to have a UTI. Due to your extensive allergies, we were limited in antibiotic choice. Ultimately we chose to prescribe you augmentin for this UTI. If you have any questions about your medications, please be sure to ask the pharmacy when you berry picker your prescription. You may also call your primary provider to ask if you should be taking your medication. FOLLOW-UP: Please schedule a hospital follow up appointment with your primary care physician in the next few days. CONCERNING SYMPTOMS: When to call your healthcare provider: Call your healthcare provider immediately if you have any of the following: - Dizziness - Weakness in arms/legs - Fever of 101??F or higher - Shaking chills - Intractable nausea and vomiting - Severe headache - Confusion/altered mental status - Seizures (convulsions) If you are unable to reach your primary provider, please go to the nearest emergency room or call EMS ([phone]). Regards, Internal Medicine Department [address] [phone] Signed: Watson Bearden MD [facility] 08/01/2023 1:57 PM documented in this encounter Discharge Instructions * Discharge Instructions* Watson Bearden MD - 08/01/2023 1:57 PM CDT A Note From Your Doctors: MsTye Marques, You were admitted to the hospital for back pain. We gave you medications to control this pain. Additionally you were found to have a UTI. Due to your extensive allergies, we were limited in antibiotic choice. Ultimately we chose to prescribe you augmentin for this UTI. If you have any questions about your medications, please be sure to ask the pharmacy when you berry picker your prescription. You may also call your primary provider to ask if you should be taking your medication. FOLLOW-UP: Please schedule a hospital follow up appointment with your primary care physician in the next few days. CONCERNING SYMPTOMS: When to call your healthcare provider: Call your healthcare provider immediately if you have any of the following: - Dizziness - Weakness in arms/legs - Fever of 101??F or higher - Shaking chills - Intractable nausea and vomiting - Severe headache - Confusion/altered mental status - Seizures (convulsions) If you are unable to reach your primary provider, please go to the nearest emergency room or call EMS ([phone]). Regards, Internal Medicine Department [address] [phone] documented in this encounter Medications at Time of Discharge Medication Sig Dispensed Refills Start Date End Date acetaminophen (Tylenol) 500 MG tablet Take 2 (two) tablets by mouth 3 times daily Maximum allowable Acetaminophen amount = 4 Grams (4000 mg) / 24 hours. 08/01/2023 Continuous Blood Gluc Sensor (FreeStyle Eileen 2 Sensor Systm) [facility] APPLY 1 SENSOR AND WEAR FOR 14 DAYS TO CHECK BLOOD SUGAR 07/11/2023 cyclobenzaprine (Flexeril) 5 MG tablet Take 1 (one) tablet by mouth 3 times daily as needed (Muscle spasms) 30 tablet 06/17/2023 exemestane (AROMASIN) 25 MG tablet Take 1 (one) tablet by mouth DAILY 04/20/2017 gabapentin (Neurontin) 300 MG capsule Take 1 (one) capsule by mouth 3 times daily 06/20/2023 HumaLOG KwikPen 100 UNIT/ML pen 26 (twenty six) Units 3 times daily before meals 02/25/2022 hydrOXYzine HCl (Atarax) 25 MG tablet Take 1 (one) tablet by mouth 3 times daily as needed for Itching 30 tablet 03/22/2023 insulin pen needle (B-D ULTRAFINE III SHORT PEN) 31G X 8 MM needle 4 times daily 300 Each 11/16/2021 Lancets (ONETOUCH DELICA PLUS 33G EXTRA FINE LANCET) USE FOUR TIMES DAILY 03/10/2021 Lantus SoloStar pen 40 (forty) Units once 02/25/2022 lidocaine (Lidoderm) 5 % patch Apply 1 (one) patch to skin every 24 hours Apply patch to most painful area and remove after 12 hours. May reapply a new patch 12 hours later. 18 patch 04/20/2023 methenamine hippurate (Hiprex) 1 GM tablet Take 1 (one) tablet by mouth 2 times daily 60 tablet 2 07/12/2023 Multiple Vitamins-Minerals (Multivitamin Womens 50+ Adv) TABS Take 1 tablet by mouth once daily naloxone HCl (Narcan) 4 MG/0.1ML nasal spray 07/11/2023 ondansetron, disintegrating, (Zofran ODT) 4 MG tablet DISSOLVE 1 TABLET ON THE TONGUE EVERY 8 HOURS NEEDED FOR NAUSEA OR VOMITING 06/28/2023 ONETOUCH ULTRA test strip 4 times daily 02/01/2021 polyethylene glycol 3350 (Miralax) 17 g packet Take 17 (seventeen) g by mouth once daily 06/17/2023 rivaroxaban (Xarelto) 20 MG tabletIndications:De ep Vein Thrombosis,Pulmonary Embolism Take 1 (one) tablet by mouth daily with food Reasons: Blockage of Blood Vessel to Lung by a Particle, Blood Clot in a Deep Vein rOPINIRole (REQUIP) 5 MG tablet TAKE 1 TABLET BY MOUTH EVERY NIGHT 06/09/2021 oxyBUTYnin CR 24hr (Ditropan XL) 15 MG tablet Take 1 (one) tablet by mouth once daily 90 tablet 4 08/15/2022 03/08/2024 documented as of this encounter Progress Notes * Khanh Ray RN - 08/01/2023 4:37 PM CDT Pt discharged to home on private vehicle with spouse. Prescription meds brought by pharmacy given to pt. Pt verbalized understanding of discharge education. IV taken out before DC. * Jeff Carolina CPhT - 08/01/2023 4:27 PM CDT MEDICATION TO BEDSIDE DELIVERY: COMPLETE Medication to Bedside delivery was completed for Karly Marques. ??? A total of 2 prescriptions were delivered to the patient for discharge. ??? Medications were given to NURSE (KHANH) ??? This delivery included a controlled substance: YES, given to RN ??? This delivery included medication that should be stored in the fridge: NO Thank you for allowing the outpatient pharmacy to participate in the care of Karly Marques. If you have any questions, please contact the outpatient pharmacy at [phone]. Jeff Carolina CPhT [facility] at [address], [address] Floor [place], [place] [address] Hours of Operation Monday - Monday: 8:00am to 6:00pm Monday: 9:00am to 1:00pm Epic: [facility] *Ensure the patient and clinic's nearby ZIP codes box is unchecked* * Angelita Short, OT - 08/01/2023 1:08 PM CDT [facility] Occupational Therapy Progress Note Patient: Karly Marques Med Record Number: [id number] Date of : 1955 Age: [age] year old PPE worn by staff: gloves;mask - procedural Recommendations: Discharge OT Discharge Recommendations: Patient may return home without the need for ongoing skilled therapy services post-hospitalization Nurse contacted regarding patient status and/or discharge plan. Activity Level: as tolerated PRECAUTIONS: Spine Precautions: Log rolling;No bending,lifting, no twisting SUBJECTIVE: Subjective: Patient agreeable for therapy Pain Assessment: Pain Location #1 Pain Scale/Observation: Numeric (0-10) Pain Rating Score #1: 7 Sedation Level #1: 1-Awake and alert Pain Location : Back Pain Orientation: Lower Pain Intervention(s): (RN notified) OBJECTIVE: At start of therapy session, patient found in patient bedside chair and with chair alarm on General Appearance: NAD, alert LDA: IV's: Peripheral line Observations: No signs or c/o distress Mental Status/Cognition: Level of Consciousness-Adult: Alert Orientation Level: Oriented X4 Cognition: Follows Commands-Consistent;Attention/concentration-normal for age;Processing-Appropriate;Judgement-appropriate Mobility: a gait belt and non-slip socks were used for all out of bed activity this date. Bed Mobility: Sit to Supine: Minimal Assistance Transfers: Sit to Stand: Stand By Assist Stand to Sit: Stand By Assist Toilet Transfers: Stand By Assist Transfer Device: Gait belt;Walker-2 Wheeled Functional Ambulation: Patient ambulated to/from bathroom and functional household distance down hallway with Stand-by assist using wheeled walker. Back pain limiting functional mobility. Balance: Balance Scales/Tests Used: Sitting: Static/Dynamic;Standing: Static/Dynamic Sitting - Static: Good Sitting - Dynamic: Good Standing - Static: Good -;With Both Upper Extremity's Support Standing - Dynamic: Fair +;With Both Upper Extremity's Support Activities of Daily Living: Oral Facial Hygiene: Stand By Assist (hand hygiene standing at sink) Lower Body Dressing: Complete Adams (doff slip-on shoes) Toileting: Stand By Assist (pericare seated on toilet) ACTIVITY TOLERANCE: Patient's activity tolerance: good minus. AM-PAC 6 Clicks Daily Activity Raw Score:: 22 TREATMENT/INTERVENTIONS: ADL training Functional transfer training Endurance training Bed mobility Safety awareness EDUCATION: While performing OT, Patient was instructed in:functional mobility training, self-care training, spine precautions , discharge planning, use of call light Presented to patient who demonstrates Good understanding of instructions given. INFORMED CONSENT TO TREATMENT: Plan of care including recommended therapy, goals and frequency, discussed with patient who understands and agrees to proceed. ASSESSMENT: Functional performance limited due to: limited activities of daily living, pain, decreased functional mobility, decreased functional balance and decreased endurance and activity tolerance. Patient continues to benefit from skilled Occupational Therapy to achieve the following functional goals. Short Term Goals: Goal Formation With patient Patient will perform lower extremity dressing??with modified independence and with adaptive equipment (Discontinued 07/31; pt reports family will assist as needed at baseline) Patient will perform toileting??independently Patient will transfer to standard toilet??independently Patient will perform bathing tasks with stand-by assist Laceworker Goal(s): Patient to be independent/baseline with functional mobility and self care and be able to safely discharge to prior level of care Plan: Patient continues to benefit from skilled therapy services., Goals updated this date. If patient is discharged from the facility, this note serves as a discharge summary if further occupational therapy visits did not occur. Refer to filed flowsheet for further details. Following therapy session, patient left in bed, with bed alarm on , with RN in room, with therapy cues visible on white board. * Khanh Ray RN - 08/01/2023 9:05 AM CDT Problem: Pain/Discomfort Goal: Patient exhibits reduced pain/discomfort as evidenced by pain scores Outcome: Progressing Goal: Patient uses pharmacological and non-pharmacological pain management strategies. Outcome: Progressing Goal: Patient verbalizes acceptable level of pain relief and ability to engage in desired activity. Outcome: Progressing Problem: Fall Risk Goal: Fall risk and fall related injury risk are minimized (interventions related to the fall risk can be found in the flowsheet documentation) Outcome: Progressing Problem: Balance Goal: LTG - Patient will demonstrate Intervention to enhance balance for safe completion of daily activities Outcome: Progressing Problem: Ineffective breathing pattern related to obstructive sleep apnea Goal: Maintains optimal sleep pattern, as evidenced by relaxed breathing at normal rate and depth. Outcome: Progressing Goal: Adheres to CPAP (Continuous Positive Airway Pressure) device regimen as prescribed. Outcome: Progressing Problem: Sleep deprivation related to sleep apnea. Goal: Achieves restful, refreshing sleep pattern. Outcome: Progressing * Christin Khalil RN - 07/31/2023 11:46 PM CDT Problem: Pain/Discomfort Goal: Patient exhibits reduced pain/discomfort as evidenced by pain scores Outcome: Progressing Goal: Patient uses pharmacological and non-pharmacological pain management strategies. Outcome: Progressing Goal: Patient verbalizes acceptable level of pain relief and ability to engage in desired activity. Outcome: Progressing Problem: Fall Risk Goal: Fall risk and fall related injury risk are minimized (interventions related to the fall risk can be found in the flowsheet documentation) Outcome: Progressing Problem: Balance Goal: LTG - Patient will demonstrate Intervention to enhance balance for safe completion of daily activities Outcome: Progressing * Sal Hannon RN - 07/31/2023 12:38 PM CDT Care Coordination Progress Note Anticipated level of care at discharge: Home: Anticipated level of care provider: None: Anticipated Discharge Date: 08/01/23: Discharge Plan: Patient is new to my service. Discharge needs dependent on response to clinical treatment and therapy recommendations. CM will continue to follow. Pt will likely dc home when medically ready. Orientation Level: Oriented X4: Family Support (Name and Phone): Extended Emergency Contact Information Primary Emergency Contact: Jimmie Marques [address]: [address] [place] [address] [place] [address] Relation: Spouse Secondary Emergency Contact: Yunior Velez Mobile Relation: Daughter Transportation at Discharge: Family: READMISSION RISK SCORE is 25* at 12:38 PM 07/31/2023.: Name: Sal Hannon RN [phone] * Chantel Britton RN - 07/31/2023 10:12 AM CDT Problem: Pain/Discomfort Goal: Patient exhibits reduced pain/discomfort as evidenced by pain scores Outcome: Progressing Goal: Patient uses pharmacological and non-pharmacological pain management strategies. Outcome: Progressing Goal: Patient verbalizes acceptable level of pain relief and ability to engage in desired activity. Outcome: Progressing Problem: Fall Risk Goal: Fall risk and fall related injury risk are minimized (interventions related to the fall risk can be found in the flowsheet documentation) Outcome: Progressing Problem: Dressing lower extremities Goal: LTG - Patient will utilize adaptive techniques/equipment to dress lower body Outcome: Progressing Problem: Balance Goal: LTG - Patient will demonstrate Intervention to enhance balance for safe completion of daily activities Outcome: Progressing Problem: Ineffective breathing pattern related to obstructive sleep apnea Goal: Maintains optimal sleep pattern, as evidenced by relaxed breathing at normal rate and depth. Outcome: Progressing Goal: Adheres to CPAP (Continuous Positive Airway Pressure) device regimen as prescribed. Outcome: Progressing Problem: Sleep deprivation related to sleep apnea. Goal: Achieves restful, refreshing sleep pattern. Outcome: Progressing * Brian Bravo MD - 07/31/2023 7:32 AM CDT Hospitalist Progress Note Karly Marques is a 68 year old female who is admitted for back pain Subjective: Patient required extra dose of pain medication yesterday. No fevers or chills. No nausea or vomiting. Worried she is going to get home and have to come right back due to the pain. Agreeable to try a lower dose of dilaudid. Objective: Blood pressure 152/92, pulse 66, temperature 97.3 ??F (36.3 ??C), temperature source Oral, resp. rate 20, height 1.549 m (5' 0.98 ), weight 123.8 kg (272 lb 15.7 oz), SpO2 98%, not currently . Gen: NAD HEENT: NCAT, EOMI, MMM RESP: Clear to auscultation CV: Nl S1 and S2 No gallops. GI: Soft and non tender. +BS, no HSM EXT: No edema. MAR reviewed Relevant labs reviewed No new labs Relevant imaging reviewed Left lower extremity doppler was negative Assessment/Plan: 1) Acute on chronic low back pain - seen by NSGY in ED who recommended medrol dose pack - continue PO pain meds - taper IV pain meds - reduced dose - continue bowel regimen (reports had BM on 07/29/2023) - PT/OT 2) UTI - s/p fosfomycin - CTM for symptoms 3) Hx of PE/DVT - continue xarelto 4) DM2 - continue lantus 30 units - aspart 18 u TID with meals - continue mounjaro on DC but hold while inpatient - gabapentin 5) Hx Breast Ca - continue exemestane 6) RLS - requip 7) Neuropathy - gabapentin 8) LUL - cpap LDA: peripheral IV Diet: diabetic Antibiotic end date: NA Consults: NSGY DVT prophylaxis: xarelto Code status: Full Code Disposition: hopeful to DC in AM. Brian Bravo MD Hospital Medicine 07/31/2023 Feel free to text page me through Vysr, login [email or web address] Current Meds ??? 0.9% NaCl 3 mL Intracatheter q8h ??? acetaminophen 1,000 mg Oral TID ??? exemestane 25 mg Oral AT BEDTIME ??? gabapentin 300 mg Oral TID ??? insulin aspart 0-6 Units Subcutaneous TID WC ??? insulin aspart 18 Units Subcutaneous TID WC ??? insulin glargine 30 Units Subcutaneous AT BEDTIME ??? lidocaine 1 patch Transdermal q24h ??? methylPREDNISolone 8 mg Oral QDAY WITH BREAKFAST Followed by ??? [START ON 08/01/2023] methylPREDNISolone 4 mg Oral QDAY WITH BREAKFAST ??? polyethylene glycol 3350 17 g Oral QDAY ??? rivaroxaban 20 mg Oral QDAY WITH FOOD ??? rOPINIRole 5 mg Oral AT BEDTIME ??? senna-docusate 1 tablet Oral QDAY ??? tolterodine ER 24hr 4 mg Oral QDAY * Laury Li RN - 07/30/2023 9:37 PM CDT Problem: Pain/Discomfort Goal: Patient exhibits reduced pain/discomfort as evidenced by pain scores Outcome: Not Progressing Goal: Patient uses pharmacological and non-pharmacological pain management strategies. Outcome: Not Progressing Goal: Patient verbalizes acceptable level of pain relief and ability to engage in desired activity. Outcome: Not Progressing * Khanh Ray RN - 07/30/2023 12:41 PM CDT Problem: Pain/Discomfort Goal: Patient exhibits reduced pain/discomfort as evidenced by pain scores Outcome: Progressing Goal: Patient uses pharmacological and non-pharmacological pain management strategies. Outcome: Progressing Goal: Patient verbalizes acceptable level of pain relief and ability to engage in desired activity. Outcome: Progressing Problem: Fall Risk Goal: Fall risk and fall related injury risk are minimized (interventions related to the fall risk can be found in the flowsheet documentation) Outcome: Progressing Problem: Ineffective breathing pattern related to obstructive sleep apnea Goal: Maintains optimal sleep pattern, as evidenced by relaxed breathing at normal rate and depth. Outcome: Progressing Goal: Adheres to CPAP (Continuous Positive Airway Pressure) device regimen as prescribed. Outcome: Progressing Problem: Sleep deprivation related to sleep apnea. Goal: Achieves restful, refreshing sleep pattern. Outcome: Progressing * Brian Bravo MD - 07/30/2023 9:17 AM CDT Hospitalist Progress Note Karly Marques is a 68 year old female who is admitted for back pain Subjective: Patient with significant pain this am, said yesterday things went well but this am the flare up was unbearable. no chest pain, no shortness of breath. No diarrhea. Objective: Blood pressure 143/81, pulse 68, temperature 97.5 ??F (36.4 ??C), temperature source Oral, resp. rate 20, height 1.549 m (5' 0.98 ), weight 123.8 kg (272 lb 15.7 oz), SpO2 97%, not currently . Gen: NAD HEENT: NCAT, EOMI, MMM RESP: Clear to auscultation CV: Nl S1 and S2 No gallops. GI: Soft and non tender. +BS, no HSM EXT: No edema. MAR reviewed Relevant labs reviewed Wbc 11.6 hgb 12.0 plt 265 Mag 1.8 Phos 3.0 K 4.4 Bicarb 27 Glucose 238 Na 136 Relevant imaging reviewed Left lower extremity doppler was negative Assessment/Plan: 1) Acute on chronic low back pain - seen by NSGY in ED who recommended medrol dose pack - continue PO pain meds - taper IV pain meds - continue bowel regimen (reports had BM on 07/29/2023) - PT/OT 2) UTI - s/p fosfomycin - CTM for symptoms 3) Hx of PE/DVT - continue xarelto 4) DM2 - continue lantus 30 units - aspart 18 u TID with meals - continue mounjaro on DC but hold while inpatient - gabapentin 5) Hx Breast Ca - continue exemestane 6) RLS - requip 7) Neuropathy - gabapentin 8) LUL - cpap LDA: peripheral IV Diet: diabetic Antibiotic end date: NA Consults: NSGY DVT prophylaxis: xarelto Code status: Full Code Disposition: Continue inpatient at this care as we wean off IV pain meds Brian Bravo MD Hospital Medicine 07/30/2023 Feel free to text page me through Vysr, login [email or web address] Current Meds ??? 0.9% NaCl 3 mL Intracatheter q8h ??? acetaminophen 1,000 mg Oral TID ??? exemestane 25 mg Oral AT BEDTIME ??? gabapentin 300 mg Oral TID ??? insulin aspart 0-6 Units Subcutaneous TID WC ??? insulin aspart 18 Units Subcutaneous TID WC ??? insulin glargine 30 Units Subcutaneous AT BEDTIME ??? lidocaine 1 patch Transdermal q24h ??? methylPREDNISolone 12 mg Oral QDAY WITH BREAKFAST Followed by ??? [START ON 07/31/2023] methylPREDNISolone 8 mg Oral QDAY WITH BREAKFAST Followed by ??? [START ON 08/01/2023] methylPREDNISolone 4 mg Oral QDAY WITH BREAKFAST ??? polyethylene glycol 3350 17 g Oral QDAY ??? rivaroxaban 20 mg Oral QDAY WITH FOOD ??? rOPINIRole 5 mg Oral AT BEDTIME ??? senna-docusate 1 tablet Oral QDAY ??? tolterodine ER 24hr 4 mg Oral QDAY * Eh Cruz RN - 07/29/2023 9:38 PM CDT Notified physician about patien 384 blood sugar and asked if he wanted to give any additional insulin. No new orders given. Will continue with plan of care. * Sara Cano RN - 07/29/2023 5:53 PM CDT Pt up with stand by assist to the bathroom today. BM. Up to chair most of the day. Eating well. Complains of pain everywhere at an 8-9. Gave Oxy and Dilaudid today. Eager to get home. * Brian Bravo MD - 07/29/2023 1:19 PM CDT Hospitalist Progress Note Karly Marques is a 68 year old female who is admitted for back pain Subjective: Patient denied any fevers or chills, notes that she is trying to wean herself off the IV pain meds. Notes that every now and again she gets acute worsening but overall has been improving. Objective: Blood pressure 140/74, pulse 70, temperature 97.3 ??F (36.3 ??C), temperature source Axillary, resp. rate 20, height 1.549 m (5' 0.98 ), weight 123.8 kg (272 lb 15.7 oz), SpO2 94%, not currently . Gen: NAD HEENT: NCAT, EOMI, MMM RESP: Clear to auscultation CV: Nl S1 and S2 No gallops. GI: Soft and non tender. +BS, no HSM EXT: No edema. MAR reviewed Relevant labs reviewed Relevant imaging reviewed Assessment/Plan: 1) Acute on chronic low back pain - seen by NSGY in ED who recommended medrol dose pack - continue PO pain meds - taper IV pain meds - continue bowel regimen (reports had BM on 07/29/2023) - PT/OT 2) UTI - s/p fosfomycin - CTM for symptoms 3) Hx of PE/DVT - continue xarelto 4) DM2 - continue lantus 30 units - aspart 18 u TID with meals - continue mounjaro on DC but hold while inpatient - gabapentin 5) Hx Breast Ca - continue exemestane 6) RLS - requip 7) Neuropathy - gabapentin 8) LUL - cpap LDA: peripheral IV Diet: diabetic Antibiotic end date: NA Consults: NSGY DVT prophylaxis: xarelto Code status: Full Code Disposition: Continue inpatient at this care as we wean off IV pain meds Brian Bravo MD Hospital Medicine 07/29/2023 Feel free to text page me through Vysr, login [employer] Current Meds ??? 0.9% NaCl 3 mL Intracatheter q8h ??? acetaminophen 1,000 mg Oral TID ??? exemestane 25 mg Oral AT BEDTIME ??? gabapentin 300 mg Oral TID ??? insulin aspart 0-6 Units Subcutaneous TID WC ??? insulin aspart 18 Units Subcutaneous TID WC ??? insulin glargine 30 Units Subcutaneous AT BEDTIME ??? lidocaine 1 patch Transdermal q24h ??? [START ON 07/30/2023] methylPREDNISolone 12 mg Oral QDAY WITH BREAKFAST Followed by ??? [START ON 07/31/2023] methylPREDNISolone 8 mg Oral QDAY WITH BREAKFAST Followed by ??? [START ON 08/01/2023] methylPREDNISolone 4 mg Oral QDAY WITH BREAKFAST ??? polyethylene glycol 3350 17 g Oral QDAY ??? rivaroxaban 20 mg Oral QDAY WITH FOOD ??? rOPINIRole 5 mg Oral AT BEDTIME ??? senna-docusate 1 tablet Oral QDAY ??? tolterodine ER 24hr 4 mg Oral QDAY * Jj Tavarez MD - 07/28/2023 10:30 PM CDT Patient seen at bedside. Says she is slowly feeling better. Questions answered. Continue plan per prior team. Jj Tavarez MD * Laury Li RN - 07/28/2023 10:02 PM CDT Problem: Pain/Discomfort Goal: Patient exhibits reduced pain/discomfort as evidenced by pain scores Outcome: Progressing Goal: Patient uses pharmacological and non-pharmacological pain management strategies. Outcome: Progressing Goal: Patient verbalizes acceptable level of pain relief and ability to engage in desired activity. Outcome: Progressing Problem: Fall Risk Goal: Fall risk and fall related injury risk are minimized (interventions related to the fall risk can be found in the flowsheet documentation) Outcome: Progressing Problem: Ineffective breathing pattern related to obstructive sleep apnea Goal: Maintains optimal sleep pattern, as evidenced by relaxed breathing at normal rate and depth. Outcome: Progressing Goal: Adheres to CPAP (Continuous Positive Airway Pressure) device regimen as prescribed. Outcome: Progressing Problem: Sleep deprivation related to sleep apnea. Goal: Achieves restful, refreshing sleep pattern. Outcome: Progressing * Margaret Sierra RN - 07/28/2023 5:29 PM CDT Patient arrived by wheelchair to our floor. She is alert and oriented x4. Skin assessment completedby Sachin Robles RN. Patient states her pain is 5/10. She is in bed awaitingher dinner tray that has been ordered. * Astrid Jernigan RN - 07/28/2023 5:23 PM CDT Problem: Pain/Discomfort Goal: Patient exhibits reduced pain/discomfort as evidenced by pain scores Outcome: Progressing Goal: Patient uses pharmacological and non-pharmacological pain management strategies. Outcome: Progressing Goal: Patient verbalizes acceptable level of pain relief and ability to engage in desired activity. Outcome: Progressing Problem: Fall Risk Goal: Fall risk and fall related injury risk are minimized (interventions related to the fall risk can be found in the flowsheet documentation) Outcome: Progressing Problem: Dressing lower extremities Goal: LTG - Patient will utilize adaptive techniques/equipment to dress lower body Outcome: Progressing Problem: Balance Goal: LTG - Patient will demonstrate Intervention to enhance balance for safe completion of daily activities Outcome: Progressing * Nydia Salamanca OT - 07/28/2023 2:01 PM CDT [facility] Physical Medicine and Rehabilitation Occupational Therapy Progress Note Patient: Karly Marques Med Record Number: [id number] Date of : 1955 Age: [age] year old PPE worn by staff: gloves;mask - procedural Recommendations: OT Discharge Recommendations: Patient may return home without the need for ongoing skilled therapy services post-hospitalization Nurse contacted regarding patient status and/or discharge plan. Activity Level: as tolerated SUBJECTIVE: Subjective: I'm in a lot of pain. Pain Assessment: Pain Location #1 Pain Scale/Observation: Numeric (0-10) Pain Rating Score #1: 7 Sedation Level #1: 1-Awake and alert Pain Location : Back Pain Orientation: Lower Pain Intervention(s): Medication (see MAR) (RN issued medication) OBJECTIVE: At start of therapy session, patient found in bed and with no alarm General Appearance: supine in NAD LDA: IV's: Peripheral line Mental Status/Cognition: Level of Consciousness-Adult: Alert Orientation Level: Oriented X4 Cognition: Follows Commands-Consistent Following Commands: Follows all commands and directions without difficulty Safety Judgement: Good awareness of safety precautions Mobility: a gait belt and non-slip socks were used for all out of bed activity this date. Bed Mobility: Supine to Sit: Stand By Assist with HOB in high fowlers position Transfers: Sit to Stand: Stand By Assist Stand to Sit: Stand By Assist Toilet Transfers: Stand By Assist (on/off BSC) Transfer Device: Gait belt;Walker-2 Wheeled Functional Ambulation: Patient ambulated 3-4 steps to BSC with SBA using w/w. Balance: Sitting - Static: Fair + Sitting - Dynamic: Fair + Standing - Static: Fair Standing - Dynamic: Fair Activities of Daily Living: Feeding: Complete [place] Toileting: Stand By Assist (pericare and clothing management) ACTIVITY TOLERANCE: Patient's activity tolerance: fair AM-PAC 6 Clicks Daily Activity Raw Score:: 20 TREATMENT/INTERVENTIONS: ADL training Functional transfer training Endurance training Bed mobility Safety awareness EDUCATION: While performing OT, Patient was instructed in:functional mobility training, self-care training, safety awareness/fall precautions , discharge planning, use of call light Presented to patient who demonstrates Good understanding of instructions given. INFORMED CONSENT TO TREATMENT: Plan of care including recommended therapy, goals and frequency, discussed with patient who understands and agrees to proceed. ASSESSMENT: Patient continues to benefit from skilled Occupational Therapy to achieve the following functional goals. Short Term Goals: Goal Formation With patient Patient will perform lower extremity dressing with modified independence and with adaptive equipment Patient will perform toileting independently Patient will transfer to standard toilet independently ?? Laceworker Goal(s): Patient to be independent with functional mobility and self-care and should be able to safely discharge to prior level of care. Plan: Patient continues to benefit from skilled therapy services., Continue with goals as established. If patient is discharged from the facility, this note serves as a discharge summary if further occupational therapy visits did not occur. Refer to filed flowsheet for further details. Following therapy session, patient left with call light within reach, and seated EOB. * Miracle Rivera PT - 07/28/2023 10:01 AM CDT [facility] Department of Physical Medicine & Rehabilitation Progress Note Patient: Karly Marques Med Record Number: [id number] Date of : 1955 Age: [age] year old 07/28/23 1001 Missed Visit Missed Visit Refused (due to talking with family; will continue to follow) * Didi Galvan MD - 07/28/2023 9:50 AM CDT [facility] INTERNAL MEDICINE PROGRESS NOTE Patient: Karly Marques Sex: female Age: [age] year old Date of : 1955 Date of Admission: 07/26/2023 Date: 07/28/2023 LOS: 0 SUBJECTIVE Interval History: Pain well controlled this AM. Received multiple doses of dilaudid. Hospital Course: 68F of chronic back pain s/p spinal stimulation system, LUL on CPAP, depression/anxiety, HTN, DMT2,GERD, restless leg syndrome, and hx PE and DVT on rivaroxaban who presents to [facility] ED on 07/26/23 withintractable low back pain. Of note, he was hospitalized for acute on chronic low back pain 5 times since 03/2023, most recently 06/16/23. Her pain was controlled inpatient and she was discharged on [place], cyclobenzaprine, heat packs, lidocaine patches, and NSGY follow up. In the ED, Her vitals were WNL and labs showed Hgb 11.7. NSGY was consulted by the ED and recommended discharge with Medrol dose pack or admission to medicine for pain control. She was admitted for further management and she has had improved pain control with IV + PO pain medications. OBJECTIVE Vital Signs: Vitals: 07/27/23 2357 07/28/23 0321 07/28/23 0354 07/28/23 0745 BP: 112/67 115/67 130/60 Pulse: 65 62 67 68 Resp: 16 16 18 Temp: 97.7 ??F (36.5 ??C) 98.2 ??F (36.8 ??C) SpO2: 99% 96% 97% 96% Weight: Height: Temp Min: 97.7 ??F (36.5 ??C) Max: 98.7 ??F (37.1 ??C), Pulse Min: 62 Max: 90, Resp Min: 13 Max: 18, BP Min: 112/67 Max: 155/91 Intake & Output: In: 2004 [P.O.:2004] Out: 250 [Urine:250] Physical Exam: Physical Exam Vitals reviewed. Constitutional: General: She is not in acute distress. Eyes: General: No scleral icterus. Cardiovascular: Rate and Rhythm: Normal rate and regular rhythm. Heart sounds: No murmur heard. No friction rub. No gallop. Pulmonary: Effort: Pulmonary effort is normal. No respiratory distress. Breath sounds: Normal breath sounds. No wheezing or rales. Abdominal: General: Abdomen is flat. Bowel sounds are normal. There is no distension. Palpations: Abdomen is soft. Tenderness: There is no abdominal tenderness. There is no right CVA tenderness or left CVA tenderness. Musculoskeletal: General: No swelling or tenderness. Normal range of motion. Cervical back: Normal range of motion. Right lower leg: No edema. Left lower leg: No edema. Skin: General: Skin is warm. Capillary Refill: Capillary refill takes less than 2 seconds. Neurological: General: No focal deficit present. Mental Status: She is alert and oriented to person, place, and time. Mental status is at baseline. Cranial Nerves: No cranial nerve deficit. Motor: No weakness. Gait: Gait normal. Psychiatric: Mood and Affect: Mood normal. Behavior: Behavior normal. Thought Content: Thought content normal. Judgment: Judgment normal. Current Medications: Scheduled: ??? 0.9% NaCl 3 mL Intracatheter q8h ??? acetaminophen 1,000 mg Oral TID ??? exemestane 25 mg Oral AT BEDTIME ??? gabapentin 300 mg Oral TID ??? insulin aspart 0-4 Units Subcutaneous AT BEDTIME ??? insulin aspart 0-6 Units Subcutaneous TID WC ??? insulin aspart 15 Units Subcutaneous TID WC ??? insulin glargine 30 Units Subcutaneous AT BEDTIME ??? lidocaine 1 patch Transdermal q24h ??? [START ON 07/29/2023] methylPREDNISolone 16 mg Oral QDAY WITH BREAKFAST Followed by ??? [START ON 07/30/2023] methylPREDNISolone 12 mg Oral QDAY WITH BREAKFAST Followed by ??? [START ON 07/31/2023] methylPREDNISolone 8 mg Oral QDAY WITH BREAKFAST Followed by ??? [START ON 08/01/2023] methylPREDNISolone 4 mg Oral QDAY WITH BREAKFAST ??? polyethylene glycol 3350 17 g Oral QDAY ??? rivaroxaban 20 mg Oral QDAY WITH FOOD ??? rOPINIRole 5 mg Oral AT BEDTIME ??? senna-docusate 1 tablet Oral QDAY ??? tolterodine ER 24hr 4 mg Oral QDAY Continuous: PRN: ??? SALINE LOCK, INSERT AND MAINTAIN AND 0.9% NaCl AND 0.9% NaCl ??? dextrose IV for hypoglycemia OR dextrose IV for hypoglycemia OR glucagon ??? glucose (Diabetic Use) gel ??? HYDROmorphone ??? ondansetron (disintegrating) ??? oxyCODONE (immediate release) OR oxyCODONE (immediate release) Imaging & Studies: Reviewed ASSESSMENT & PLAN Chronic anticoagulation (POA: Yes) Essential hypertension (POA: Yes) LUL (obstructive sleep apnea) (POA: Yes) Type 2 diabetes mellitus without complication (CMS/HCC) (POA: Yes) Multiple subsegmental pulmonary emboli without acute cor pulmonale (CMS/HCC) (POA: Yes) S/P placement of nerve stimulator (POA: Yes) Breast cancer (HCC) (POA: Yes) Restless legs syndrome (RLS) (POA: Yes) Lumbar back pain (POA: Unknown) #acute on chronic low back pain #s/p nerve stimulator - NSGY consulted in ED, no surgical management this admission - Medrol dose pack ordered - 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 Will space dilaudid to q6 today - lidocaine patch daily - bowel regimen: miralax daily, senna-docusate daily; uptitrate as needed - PT OT consulted appreciate recs #acute cystitis - fosfomycin x1 - OP allergy testing for drug allergies and MDR organism previously ?? #Hx PE #Hx DVT - continue rivaroxaban ?? #DM2 - home regimen is: lantus 40u, aspart 26u TID AC - start her on lantus 30u, aspart 15u TID AC, + SSI - hold Mounjaro while inpatient ?? #Hx breast ca - continue exemestane ?? #restless leg syndrome - continue ropinirole ?? #neuropathy - continue gabapentin ?? #LUL - on CPAP ?? Code: FULL Diet: regular Electrolytes: Replete PRN PPx: rivaroxaban Access: PIV Dispo: Admit to Medicine. The above assessment and plan will be discussed with the attending. This note is not final until attested by attending physician. Didi Galvan MD Internal Medicine Resident [facility] 07/28/2023 9:51 AM Associated attestation - Kip Rocha MD - 07/28/2023 4:31 PM CDT I have seen and examined the patient with the resident and I agree with the findings and plan of care as documented by the resident. Date of Service: 07/28/23 Problem List: Chronic anticoagulation (POA: Yes) Essential hypertension (POA: Yes) LUL (obstructive sleep apnea) (POA: Yes) Type 2 diabetes mellitus without complication (CMS/HCC) (POA: Yes) Multiple subsegmental pulmonary emboli without acute cor pulmonale (CMS/HCC) (POA: Yes) S/P placement of nerve stimulator (POA: Yes) Breast cancer (HCC) (POA: Yes) Restless legs syndrome (RLS) (POA: Yes) Lumbar back pain (POA: Unknown) Kip Rocha MD * Gunnar Johnston RN - 07/28/2023 4:37 AM CDT END OF SHIFT SUMMARY Issues/Changes: No acute events overnight. Patient or Family Concerns: Patient voiced concerned regarding possibility with developing a UTI. Pain Issues: Medicated accordingly. Patient Progress: Ambulatory, voiding adequately, no BM. Vitals stable, safety maintained. * Jarad Flower RN - 07/27/2023 4:26 PM CDT Problem: Pain/Discomfort Goal: Patient exhibits reduced pain/discomfort as evidenced by pain scores Outcome: Progressing Goal: Patient uses pharmacological and non-pharmacological pain management strategies. Outcome: Progressing Goal: Patient verbalizes acceptable level of pain relief and ability to engage in desired activity. Outcome: Progressing Problem: Fall Risk Goal: Fall risk and fall related injury risk are minimized (interventions related to the fall risk can be found in the flowsheet documentation) Outcome: Progressing Problem: Dressing lower extremities Goal: LTG - Patient will utilize adaptive techniques/equipment to dress lower body Outcome: Progressing Problem: Balance Goal: LTG - Patient will demonstrate Intervention to enhance balance for safe completion of daily activities Outcome: Progressing * Magda De La Rosa RN - 07/27/2023 11:39 AM CDT Care Coordination Initial Assessment Anticipated Discharge Date: 07/28/23 Transportation at Discharge: Family Anticipated level of care at discharge: Home Anticipated level of care provider: None Prior to admission level of care: Home Prior to admit provider: None Patient Goals: Home Plans: No discharge needs identified at this time. Consult Case Management if discharge planning needs arise. Comments: Plan to return home with daughter. Family to transport. Lives with: Daughter Physical Limitations: None Requires Assistance With: None Preferred Pharmacy: [facility] #[id number] - [address] [place] [address] [address] [place] [address] READMISSION RISK SCORE is N/A at 11:39 AM 07/27/2023. 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 Yes Patient/Family provided with list of resources? No Preferred Provider / High Quality Network List given?: No Reason for provider choice: Pt. choice - Physician driven Equipment at Home: Cane-Straight;CPAP;Walker-2 Wheeled;Wheelchair-Standard;Chair-Shower;Commode-Bedside;Grab Bars Glaze Handler Referral: No Will continue to follow. For any questions or needs please contact: Machinery Mechanic Name/Phone number: Magda De La Rosa RN * Juve He, PT - 07/27/2023 10:45 AM CDT [facility] Physical Medicine and Rehabilitation Physical Therapy Initial Evaluation Note Patient: Karly Marques [facility] Record Number: [id number] Date of : 1955 Age: [age] year old PPE worn by staff: gloves;mask - procedural PPE worn by patient: gown - patient, clean;socks - clean Tech: no Recommendations: Discharge PT Discharge Recommendations: Patient would benefit from OP Therapy: PT In addition to the 1:1 evaluation of the patient, additional eval time was spent completing the chart review prior to the assessment, completing the multidisciplinary plan of care and education plan post evaluation and communicating results of the eval to other treatment team members. Patient currently using Wheeled Walker and has equipment at home. No equipment needs if d/c home. Nurse and Occupational Therapist contacted regarding patient status and/or discharge plan. Physician Orders: Evaluation and Treat PRECAUTIONS: Weight Bearing Status: (no WB restrictions noted) Activity Level: Activity as Tolerated DIAGNOSIS: Patient Active Problem List: Chronic back pain Anxiety and depression Chronic anticoagulation CVA (cerebral vascular accident) ([facility]) Essential hypertension Neuropathy LUL (obstructive sleep apnea) Type 2 diabetes mellitus without complication ([facility]) S/P insertion of spinal cord stimulator Preoperative examination Acute post-operative pain Tachycardia Multiple subsegmental pulmonary emboli without acute cor pulmonale (CMS/HCC) Wound infection complicating hardware ([facility]) Acute intractable headache, unspecified headache type Intractable chronic post-traumatic headache Right hand weakness Cellulitis, wound, post-operative Weakness Chronic left-sided low back pain, unspecified whether sciatica present S/P placement of nerve stimulator Acute cystitis without hematuria Breast cancer ([facility]) Restless legs syndrome (RLS) Morbid obesity ([facility]) Chronic midline low back pain without sciatica Chronic left-sided low back pain with left-sided sciatica Lumbar back pain Past Medical History: Diagnosis Date ??? Breast cancer ([facility]) ??? Chest pain ??? DVT (deep venous thrombosis) ([facility]) ??? GERD (gastroesophageal reflux disease) ??? LUL (obstructive sleep apnea) w cpap ??? Other pulmonary embolism without acute cor pulmonale ([facility]) ??? rls ??? Type 2 diabetes mellitus without complications ([facility]) SUBJECTIVE: Subjective: Agreeable to therapy evaluation, reports she feels better than when she came into the hospital PATIENT GOALS: Patient's Primary Concern: Get better, reduce low back pain Home Situation: Type of Residence: Private Residence Lives with:: Daughter Steps to Enter: 2 Handrails: None Home Structure: One Story Primary Bedroom: First Floor Primary Bathroom: First Floor Bathroom : Tub/Shower Combo Equipment at Home: Cane-Straight;CPAP;Walker-2 Wheeled;Wheelchair-Standard;Chair-Shower;Commode-Bedside;Grab Bars Prior Level of Functioning: Prior Level of Function Mobility: Ambulate-In Home ;With Assistive Device;Independent (uses cane in home, ww out of home, occasional assistance required) Fallen Within 6 Mos: 1 Have Help at Home?: Yes, there is help at home now Who assists you at home?: Friends/Family How often is assistance provided?: daughter is her bag shop worker and assists with dressing, bathing,and IADLs, reports around 20 hours a week Level of Help Sufficient?: Yes Oxygen at Home: No Activity at Home: Sedentary Who manages medications?: daughter Pain Assessment: Pain Location #1 Pain Scale/Observation: Numeric (0-10) Pain Rating Score #1: 6 Sedation Level #1: 1-Awake and alert Pain Location : Back OBJECTIVE: At start of therapy session, patient found in bed and with bed alarm on. General Appearance: NAD LDAs: IV's: Peripheral line Edema: minimal edema noted in right lower extremity and minimal edema noted in left lower extremity Observations: no s/s of distress Mental Status/Cognition: Level of Consciousness-Adult: Alert Orientation Level: Oriented X4 Cognition: Follows Commands-Consistent;Attention/concentration-normal for age;Processing-Appropriate;Judgement-appropriate;Safety awareness-appropriate ROM: RLE: AROM WFL LLE: AROM WFL Strength: RLE:deficits noted LLE: deficits noted Tone: RLE: no abnormal tone noted LLE: no abnormal tone noted Coordination: RLE: impaired LLE: impaired Sensation: RLE: complaints of numbness or tingling LLE: complaints of numbness or tingling Mobility: A gait belt and non-slip socks were used for all out of bed activity this date. Bed Mobility: Supine to Sit: (starts at EOB) with HOB in semi-fowlers position Sit to Supine: Minimal Assistance (requested therapist assistance for LEs) Transfers: Sit to Stand: Stand By Assist Stand to Sit: Stand By Assist Chair to Bed: Stand By Assist Bed to Chair: Stand By Assist (eventually declines staying in chair) Type of Transfer: (ambulates) Transfer Device: Gait belt;Walker-2 Wheeled Gait: Weight Bearing Status: (no WB restrictions noted) Distance Ambulated (ft): 40 FEET Ambulation: Assistive Device: Gait Belt;Walker-2 Wheeled Ambulation: Level of Assistance: Stand By Assist Ambulation: Gait Deviations: (very slow andra, forward flexed posture, antalgic) Comments: Ambulates short distance with wheeled walker. Reports she feels like this is improved from baseline. Balance: Balance Scales/Tests Used: Sitting: Static/Dynamic;Standing: Static/Dynamic Sitting - Static: Fair + Sitting - Dynamic: Fair + Standing - Static: Fair Standing - Dynamic: Fair;With Both Upper Extremity's Support ACTIVITY TOLERANCE: Patient's activity tolerance: fair TREATMENT/INTERVENTIONS: evaluation, strengthening exercises, bed mobility training, transfer training, gait training and balance activities AM-[facility] 6 Clicks Mobility Raw Score:: 17 EDUCATION: While performing PT, Patient was instructed in:functional mobility training, safety awareness/fall precautions , discharge planning, use of call light Presented to patient who demonstrates Good understanding of instructions given. INFORMED CONSENT TO TREATMENT: Plan of care including recommended therapy, goals and frequency, discussed with patient who understands and agrees to proceed. ASSESSMENT: Patient would benefit from additional Physical Therapy sessions to achieve the following functionalgoals to enhance independence. Short Term Goals: Goal Formation With patient Patient will transfer sit to/from stand with stand by assist Patient will transfer bed to/from chair with stand by assist Patient will ambulate 100 feet with stand by assist and appropriate AD Patient will ascend/descent 2 steps with stand by assist Laceworker Goal(s): Patient to be baseline with functional mobility and self-care and should discharge to prior level of care. Equipment Issued: gait belt Plan: Gait training Transfer training Stair training Assistive device training Endurance training Bed mobility training Balance training Energy conservation techniques Safety awareness Home exercise program training If patient is discharged from the facility, this note serves as a discharge summary if further physical therapy visits did not occur. Refer to filed flowsheet for further details. Following therapy session, patient left in bed, with bed alarm on , with call light within reach, with RN, Malica aware, with therapy cues visible on white board. * Nydia Salamanca, OT - 07/27/2023 10:23 AM CDT [facility] Physical Medicine and Rehabilitation Occupational Therapy Initial Evaluation Note Patient: Karly Marques Med Record Number: [id number] Date of : 1955 Age: [age] year old PPE worn by staff: gloves;mask - procedural Recommendations: Discharge OT Discharge Recommendations: Patient may return home without the need for ongoing skilled therapy services post-hospitalization In addition to the 1:1 evaluation of the patient, additional eval time was spent completing the chart review prior to the assessment, completing the multidisciplinary plan of care and education plan post evaluation and communicating results of the eval to other treatment team members. Nurse and Physical Therapy (co-evaluation) contacted regarding patient status and/or discharge plan. Physician Orders: Evaluation and Treat Activity Level: as tolerated DIAGNOSIS: Patient Active Problem List: Chronic back pain Anxiety and depression Chronic anticoagulation CVA (cerebral vascular accident) ([facility]) Essential hypertension Neuropathy LUL (obstructive sleep apnea) Type 2 diabetes mellitus without complication ([facility]) S/P insertion of spinal cord stimulator Preoperative examination Acute post-operative pain Tachycardia Multiple subsegmental pulmonary emboli without acute cor pulmonale (CMS/HCC) Wound infection complicating hardware ([facility]) Acute intractable headache, unspecified headache type Intractable chronic post-traumatic headache Right hand weakness Cellulitis, wound, post-operative Weakness Chronic left-sided low back pain, unspecified whether sciatica present S/P placement of nerve stimulator Acute cystitis without hematuria Breast cancer ([facility]) Restless legs syndrome (RLS) Morbid obesity ([facility]) Chronic midline low back pain without sciatica Chronic left-sided low back pain with left-sided sciatica Lumbar back pain Past Medical History: Diagnosis Date ??? Breast cancer ([facility]) ??? Chest pain ??? DVT (deep venous thrombosis) ([facility]) ??? GERD (gastroesophageal reflux disease) ??? LUL (obstructive sleep apnea) w cpap ??? Other pulmonary embolism without acute cor pulmonale ([facility]) ??? rls ??? Type 2 diabetes mellitus without complications ([facility]) SUBJECTIVE: Subjective: I'm doing much better than when I was at home. PATIENT GOALS: Patient's Primary Concern: Patient would like to try outpatient PT. Home Situation: Type of Residence: Private Residence Lives with:: Daughter Steps to Enter: 2 Handrails: None Home Structure: One Story Primary Bedroom: First Floor Primary Bathroom: First Floor Bathroom : Tub/Shower Combo Equipment at Home: Cane-Straight;CPAP;Walker-2 Wheeled;Wheelchair-Standard;Chair-Shower;Commode-Bedside;Grab Bars Prior Level of Functioning: Mobility: Ambulate-In Home ;With Assistive Device Fallen Within 6 Mos: 1 Have Help at Home?: Yes, there is help at home now Who assists you at home?: Friends/Family How often is assistance provided?: daughter is her bag shop worker and assists with dressing, bathing,and IADLs Level of Help Sufficient?: Yes Activity at Home: Sedentary Who manages medications?: daughter Pain Assessment: Pain Location #1 Pain Scale/Observation: Numeric (0-10) Pain Rating Score #1: 6 Sedation Level #1: 1-Awake and alert Pain Location : Back Pain Intervention(s): Medication (see MAR) (RN provided medication) OBJECTIVE: At start of therapy session, patient found on edge of bed and with no alarm General Appearance: seated EOB in NAD LDA: IV's: Peripheral line Edema: No edema noted Mental Status/Cognition: Level of Consciousness-Adult: Alert Orientation Level: Oriented X4 Cognition: Follows Commands-Consistent;Attention/concentration-normal for age Following Commands: Follows all commands and directions without difficulty Safety Judgement: Good awareness of safety precautions UE ROM: RUE: AROM WFL LUE: AROM WFL Strength: RUE: WNL except fair pick out hand strength LUE: WNL UE Tone RUE: no abnormal tone noted LUE: no abnormal tone noted Coordination: intact serial opposition for bilateral hands UE Proprioception RUE: not tested LUE: not tested UE Sensation RUE: intact LUE: intact Mobility: A gait belt and non-slip socks were used for all out of bed activity this date. Bed Mobility: Sit to Supine: Minimal Assistance (for LE) Transfers: Sit to Stand: Stand By Assist Stand to Sit: Stand By Assist Chair to Bed: Stand By Assist Bed to Chair: Stand By Assist Type of Transfer: (Ambulatory to the chair) Transfer Device: Gait belt;Walker-2 Wheeled Functional Ambulation: Patient ambulated functional household distance with SBA using w/w. Balance: Sitting - Static: Fair + Sitting - Dynamic: Fair + Standing - Static: Fair Standing - Dynamic: Fair;With Both Upper Extremity's Support Activities of Daily Living Lower Body Dressing: Moderate Assistance (with use of material assistant for donning underwear EOB, educated on use of material assistant) ACTIVITY TOLERANCE: Patient's activity tolerance: fair- limited by pain AM-[facility] 6 Clicks Daily Activity Raw Score:: 20 TREATMENT / EDUCATION / INTERVENTIONS: While performing OT, Patient was instructed in:functional mobility training, self-care training, safety awareness/fall precautions , use of adaptive equipment, discharge planning, use of call light Presented to patient who demonstrates Good understanding of instructions given. INFORMED CONSENT TO TREATMENT: Plan of care including recommended therapy, goals and frequency, discussed with patient who understands and agrees to proceed. ASSESSMENT: Functional performance limited due to: limited activities of daily living, pain, decreased functional mobility, decreased functional balance and decreased endurance and activity tolerance. Patient continues to benefit from skilled Occupational Therapy to achieve the following functional goals. Equipment Issued: gait belt. Short Term Goals: Goal Formation With patient Patient will perform lower extremity dressing with modified independence and with adaptive equipment Patient will perform toileting independently Patient will transfer to standard toilet independently Skilled Nursing Goal(s): Patient to be independent with functional mobility and self-care and should be able to safely discharge to prior level of care. Plan: Continue OT during acute hospitalization If patient is discharged from the facility, this note serves as a discharge summary if further occupational therapy visits did not occur. Refer to filed flowsheet for further details. Following therapy session, patient left in bed, with call light within reach, with therapy cues visible on white board. * Juve He PT - 07/27/2023 9:45 AM CDT [facility] Department of Physical Medicine & Rehabilitation Patient: Karly Marques Med Record Number: [id number] Date of : 1955 Age: [age] year old 07/27/23 0909 Missed Visit Missed Visit Procedure Off Floor;Other (Comment) Pt being taken off the floor at time of therapists arrival. Will continue to follow for evaluation. * Gunnar Johnston RN - 07/27/2023 6:34 AM CDT END OF SHIFT SUMMARY Issues/Changes: No acute events overnight. Patient or Family Concerns: No issues/concerns voiced overnight. Pain Issues: Medicated accordingly. Patient Progress: Ambulatory, voiding adequately, no BM. Vitals stable, safety maintained. documented in this encounter H&P Notes * Noe Matias DO - 07/26/2023 11:43 PM CDT [facility] INTERNAL MEDICINE HISTORY & PHYSICAL NOTE Date of Admission: 07/26/2023 Patient: Karly Marques Sex: female Age: [age] year old Date of : 1955 Code Status: Full Code SUBJECTIVE Chief Complaint: Low back pain History of Present Illness: Patient is a 68 F with PMHx of chronic back pain s/p spinal stimulation system, LUL on CPAP, depression/anxiety, HTN, DMT2, GERD, restless leg syndrome, and hx PE and DVT on rivaroxaban who presents to [facility] on 07/26/23 with intractable low back pain. Her pain started last Monday when she fell into a chair at home. It was purely a mechanical fall. She did not hit her head, she did not lose consciousness. Her pain has progressively gotten worse since then. Her pain did not resolve with rest so she decided to come to the ED. Her pain is a 6/10 and its worse with movement. Heat and arthritis rub provided some relief at home. This pain is somewhat similar to previous episodes of low back pain she had in the past. The main difference is this pain is in a larger area and constant. The pain is located on her R and L lower back and hips. She characterizes the pain as a sore pressure. She endorses urinary incontinence and numbness in her toes since Monday. She denies any motor changes, stool incontinence, chest pain, SOB, fevers, or chills. Of note, he was hospitalized for acute on chronic low back pain 5 times since 03/2023, most recently 06/16/23. Her pain was controlled inpatient and she was discharged on [place], cyclobenzaprine, heat packs, lidocaine patches, and NSGY follow up. In the ED, Her vitals were WNL and labs showed Hgb 11.7. NSGY was consulted by the ED and recommended discharge with Medrol dose pack or admission to medicine for pain control. She was admitted for further management. Past Medical History: Past Medical History: Diagnosis Date ??? Breast cancer (HCC) ??? Chest pain ??? DVT (deep venous thrombosis) (HCC) ??? GERD (gastroesophageal reflux disease) ??? LUL (obstructive sleep apnea) w cpap ??? Other pulmonary embolism without acute cor pulmonale (HCC) ??? rls ??? Type 2 diabetes mellitus without complications (HCC) Past Surgical History: Past Surgical History: Procedure Laterality Date ??? [...] BATTERY IN THE LOWER LUMBAR REGION Family History: Family History Problem Relation Name Age of Onset ??? Heart Disease Mother ??? Diabetes Mother ??? Cancer Father ??? Hemochromatosis Father ??? Cancer Sister ??? Heart Disease Brother Social History: Social History Socioeconomic History ??? Marital status: Spouse name: Not on file ??? Number of children: Not on file ??? Years of education: Not on file ??? Highest education level: Not on file Occupational History ??? Not on file Tobacco Use ??? Smoking status: Former Packs/day: .5 Types: Cigarettes Quit date: 12/05/1977 Years since quittin.6 ??? Smokeless tobacco: Never Vaping Use ??? Vaping Use: Never used Substance and Sexual Activity ??? Alcohol use: No ??? Drug use: No ??? Sexual activity: Not on file Other Topics Concern ??? Not on file Social History Narrative ??? Not on file Social Determinants of Health Financial Resource Strain: Medium Risk (05/16/2023) Overall Financial Resource Strain (CARDIA) ??? Difficulty of Paying Living Expenses: Somewhat hard Food Insecurity: No Food Insecurity (05/16/2023) Hunger Vital Sign ??? Worried About Running Out of Food in the Last Year: Never true ??? Ran Out of Food in the Last Year: Never true Transportation Needs: No Transportation Needs (05/16/2023) PRAPARE - Transportation ??? Lack of Transportation (Medical): No ??? Lack of Transportation (Non-Medical): No Stress: No Stress Concern Present (05/16/2023) [facility] of Occupational Health - Occupational Stress Questionnaire ??? Feeling of Stress : Not at all Housing Stability: Low Risk (05/16/2023) Housing Stability Vital Sign ??? Unable to Pay for Housing in the Last Year: No ??? Number of Places Lived in the Last Year: 1 ??? Unstable Housing in the Last Year: No Allergies: Allergies Allergen Reactions ??? Latex Rash ??? Ceftriaxone Anaphylaxis and Shortness of Breath R ??? Cephalosporins Anaphylaxis and Shortness of Breath ??? Trazodone Anaphylaxis and Other Shaky, restlessness, itching, throat swelling ??? Contrast-Iodinated Agents For Ct/Other Rash ??? Levofloxacin Urticaria and Skin Reactions ??? Macrobid [Nitrofurantoin] Rash ??? Lisinopril Swelling ??? Ketorolac Itching ??? Pregabalin Other ??? Adhesive Sensitivity Rash ??? Amlodipine Base Swelling Leg swelling Leg swelling ??? Piperacillin-Tazobactam In D5w Rash ??? Bactrim [Sulfamethoxazole W-Trimethoprim] Vomiting ??? Reslizumab Unknown ??? Skin Adhesives Skin Reactions Home Medications: No current facility-administered medications on file prior to encounter. Current Outpatient Medications on File Prior to Encounter Medication Sig Dispense Refill ??? amoxicillin-clavulanate (Augmentin) 875-125 MG tablet Take 1 (one) tablet by mouth every 12 hours FOR 10 DAYS ??? Continuous Blood Gluc Sensor (FreeStyle Eileen 2 Sensor Systm) [facility] [place] APPLY 1 SENSOR AND WEAR FOR 14 DAYS TO CHECK BLOOD SUGAR ??? cyclobenzaprine (Flexeril) 5 MG tablet Take 1 (one) tablet by mouth 3 times daily as needed (Muscle spasms) (Patient not taking: Reported on 07/17/2023) 30 tablet 0 ??? exemestane (AROMASIN) 25 MG tablet Take 1 (one) tablet by mouth DAILY ??? gabapentin (Neurontin) 300 MG capsule Take 1 (one) capsule by mouth 3 times daily ??? HumaLOG KwikPen 100 UNIT/ML pen 26 (twenty six) Units 3 times daily before meals ??? HYDROcodone-acetaminophen ([place]) 10-325 MG tablet Take 1 (one) tablet by mouth every 8 hours as needed for Pain Takes 3-4 times a day 12 tablet 0 ??? hydrOXYzine HCl (Atarax) 25 MG tablet Take 1 (one) tablet by mouth 3 times daily as needed for Itching 30 tablet 0 ??? insulin pen needle (B-D ULTRAFINE III SHORT PEN) 31G X 8 MM needle 4 times daily 300 Each PRN ??? Lancets (ONETOUCH DELICA PLUS 33G EXTRA FINE LANCET) USE FOUR TIMES DAILY ??? Lantus SoloStar pen 40 (forty) Units once ??? lidocaine (Lidoderm) 5 % patch Apply 1 (one) patch to skin every 24 hours Apply patch to most painful area and remove after 12 hours. May reapply a new patch 12 hours later. 18 patch 0 ??? methenamine hippurate (Hiprex) 1 GM tablet Take 1 (one) tablet by mouth 2 times daily 60 tablet2 ??? Multiple Vitamins-Minerals (Multivitamin Womens 50+ Adv) TABS Take 1 tablet by mouth once daily ??? naloxone HCl (Narcan) 4 MG/0.1ML nasal spray ??? ondansetron, disintegrating, (Zofran ODT) 4 MG tablet DISSOLVE 1 TABLET ON THE TONGUE EVERY 8 HOURS NEEDED FOR NAUSEA OR VOMITING ??? ONETOUCH ULTRA test strip 4 times daily ??? oxyBUTYnin CR 24hr (Ditropan XL) 15 MG tablet Take 1 (one) tablet by mouth once daily 90 tablet4 ??? polyethylene glycol 3350 (Miralax) 17 g packet Take 17 (seventeen) g by mouth once daily ??? rivaroxaban (Xarelto) 20 MG tablet Take 1 (one) tablet by mouth daily with food Reasons: Blockage of Blood Vessel to Lung by a Particle, Blood Clot in a Deep Vein ??? rOPINIRole (REQUIP) 5 MG tablet TAKE 1 TABLET BY MOUTH EVERY NIGHT Current Medications: Scheduled: ??? 0.9% NaCl 3 mL Intracatheter q8h ??? acetaminophen 1,000 mg Oral TID ??? exemestane 25 mg Oral AT BEDTIME ??? gabapentin 300 mg Oral TID ??? insulin aspart 0-4 Units Subcutaneous AT BEDTIME ??? insulin aspart 0-6 Units Subcutaneous TID WC ??? insulin aspart 15 Units Subcutaneous TID WC ??? insulin glargine 30 Units Subcutaneous AT BEDTIME ??? lidocaine 1 patch Transdermal q24h ??? methylPREDNISolone 24 mg Oral QDAY WITH BREAKFAST Followed by ??? [START ON 07/28/2023] methylPREDNISolone 20 mg Oral QDAY WITH BREAKFAST Followed by ??? [START ON 07/29/2023] methylPREDNISolone 16 mg Oral QDAY WITH BREAKFAST Followed by ??? [START ON 07/30/2023] methylPREDNISolone 12 mg Oral QDAY WITH BREAKFAST Followed by ??? [START ON 07/31/2023] methylPREDNISolone 8 mg Oral QDAY WITH BREAKFAST Followed by ??? [START ON 08/01/2023] methylPREDNISolone 4 mg Oral QDAY WITH BREAKFAST ??? polyethylene glycol 3350 17 g Oral QDAY ??? rivaroxaban 20 mg Oral QDAY WITH FOOD ??? rOPINIRole 5 mg Oral AT BEDTIME ??? senna-docusate 1 tablet Oral QDAY ??? tolterodine ER 24hr 4 mg Oral QDAY Continuous: PRN: ??? SALINE LOCK, INSERT AND MAINTAIN AND 0.9% NaCl AND 0.9% NaCl ??? dextrose IV for hypoglycemia OR dextrose IV for hypoglycemia OR glucagon ??? glucose (Diabetic Use) gel ??? HYDROmorphone ??? ondansetron (disintegrating) ??? oxyCODONE (immediate release) OR oxyCODONE (immediate release) Review of Systems: Review of Systems Constitutional: Negative for chills and fever. HENT: Negative for hearing loss. Eyes: Negative for blurred vision. Respiratory: Negative for cough and shortness of breath. Cardiovascular: Negative for chest pain and palpitations. Gastrointestinal: Positive for constipation and nausea. Negative for abdominal pain, diarrhea and vomiting. Genitourinary: Negative for dysuria and urgency. Incontinence Musculoskeletal: Positive for back pain. Neurological: Positive for tingling and sensory change. Negative for dizziness and headaches. Psychiatric/Behavioral: Negative for depression. The patient is not nervous/anxious. OBJECTIVE Vital Signs: Temp: [98 ??F (36.7 ??C)-98.3 ??F (36.8 ??C)] 98 ??F (36.7 ??C) Pulse: [78-90] 78 Resp: [13-18] 17 BP: (142-155)/(67-91) 144/67 O2 %: [21 %] 21 % Physical Exam: Physical Exam HENT: Head: Normocephalic and atraumatic. Eyes: General: No scleral icterus. Cardiovascular: Rate and Rhythm: Normal rate and regular rhythm. Heart sounds: No murmur heard. No friction rub. No gallop. Pulmonary: Breath sounds: Normal breath sounds. No wheezing, rhonchi or rales. Musculoskeletal: Right lower leg: No edema. Left lower leg: No edema. Neurological: General: No focal deficit present. Comments: 4/5 strength in b/l LE likely limited due to acute pain; 5/5 strength in b/l UE Lab Results: CBC: Recent Labs Component Name 07/26/23222506/16/23 0848 05/28/23 1621 WBC 10.0 8.4 10.0 HGB 11.7* 14.1 13.3 HCT 36.1 43.6 42.2 MCV 89.4 89.3 90.9 Coagulation Panel: Recent Labs Component Name 07/26/23 2226 02/21/23 1830 02/17/23 1838 02/16/23 1220 02/06/23 1330 11/13/21 0107 11/12/21 1823 PT 14.2 13.2 12.7 - 25.7* 15.2* - INR 1.1 1.0 1.0 - 2.5* 1.2 - PTT - - - - 35.4 77.2* 70.9* - = values in this interval not displayed. BMP: Recent Labs Component Name 07/26/23222506/16/23 0848 05/28/23162004/17/23205803/24/23 2338 NA 141 135* - - 135* POTASSIUM 3.9 3.7 3.9 - 4.2 CL 104 103 - - 98 CO2 28 24 25 - 26 BUN 13 14 12 - 17 CREATININE 0.63 0.63 0.77 - 0.99* CALCIUM 9.5 9.9 9.8 - 9.4 - = values in this interval not displayed. Recent Labs Component Name 07/26/23222503/22/23 1028 03/20/23 0355 MAGNESIUM 1.6 1.6 1.7 Recent Labs Component Name 03/22/238 03/20/23 0355 02/24/23 0233 PHOS 3.3 2.9 2.5* Hepatic Panel: Recent Labs Component Name 07/26/23222506/16/23 0848 05/28/23162004/17/23205803/24/23 2338 AST 17 17 17 - 23 ALT 19 18 18 - 17 ALKPHOS 74 82 82 - 77 TBILI 0.5 0.6 - - 0.4 ALB 3.1* 3.5 - - 3.3* - = values in this interval not displayed. ABG: No results for input(s): PH , PCO2 , PO2 in the last 68652 hours. Invalid input(s): BICAR3 Amylase/Lipase: Invalid input(s): AMYL , LIPA Thyroid Studies: No results for input(s): TSH , T4 in the last 50389 hours. Cardiac Enzymes: Recent Labs Component Name 11/11/21223711/05/21 1350 TROPONINI <0.010 <0.010 Lipid Panel: No results for input(s): LDLCALC , HDL in the last 05444 hours. UA: reviewed Microbiology: reviewed Imaging & Studies: reviewed ASSESSMENT & PLAN Chronic anticoagulation (POA: Yes) Essential hypertension (POA: Yes) LUL (obstructive sleep apnea) (POA: Yes) Type 2 diabetes mellitus without complication (CMS/HCC) (POA: Yes) Multiple subsegmental pulmonary emboli without acute cor pulmonale (CMS/HCC) (POA: Yes) S/P placement of nerve stimulator (POA: Yes) Breast cancer (HCC) (POA: Yes) Restless legs syndrome (RLS) (POA: Yes) Lumbar back pain (POA: Unknown) #acute on chronic low back pain #s/p nerve stimulator - NSGY consulted in ED, no surgical management this admission - patient admitted for pain control - Medrol dose pack ordered - patient states [employer] [place] only works for 3 hours then she is in pain until she can take the next pill - pain regimen: Tylenol 1g TID, oxy5/10 for moderate/severe pain, dilaudid 0.5 mg for breakthrough pain - lidocaine patch daily - bowel regimen: miralax daily, senna-docusate daily; uptitrate as needed - consider acute pain consult for recommendations - PT OT consulted appreciate recs #Hx PE #Hx DVT - continue rivaroxaban - patient states her LLE is swollen, difficult to tell on exam given body habitus - given her history of DVT/PE, its reasonable to order LLE US #DMT2 - home regimen is: lantus 40u, aspart 26u TID AC - start her on lantus 30u, aspart 15u TID AC, + SSI - will probably need to be more aggressive when she starts her steroid taper later today - hold Mounjaro while inpatient #Hx breast ca - continue exemestane #restless leg syndrome - continue ropinirole #neuropathy - continue gabapentin #LUL - on CPAP Code: FULL Diet: regular Electrolytes: Replete PRN PPx: rivaroxaban Access: PIV Dispo: Admit to Medicine. The above assessment and plan will be discussed with the attending. This note is not final until attested by attending physician. Noe Matias DO Internal Medicine Resident [facility] 07/27/2023 4:35 AM Associated attestation - Kip Rocha MD - 07/27/2023 9:35 AM CDT I have seen and examined the patient with the resident and I agree with the findings and plan of care as documented by the resident. Date of Service: 07/27/23 Problem List: Chronic anticoagulation (POA: Yes) Essential hypertension (POA: Yes) LUL (obstructive sleep apnea) (POA: Yes) Type 2 diabetes mellitus without complication (CMS/HCC) (POA: Yes) Multiple subsegmental pulmonary emboli without acute cor pulmonale (CMS/HCC) (POA: Yes) S/P placement of nerve stimulator (POA: Yes) Breast cancer (HCC) (POA: Yes) Restless legs syndrome (RLS) (POA: Yes) Lumbar back pain (POA: Unknown) Kip Rocha MD documented in this encounter Consult Notes * Corby Ritchie, DATA CONVERSION OPERATOR-DOG BREEDER - 07/26/2023 9:00 PM CDT Neurosurgery Spine Consult Note Name: Karly Marques : 1955 Date of Admission:07/26/2023 Date of Consult:07/26/2023 9:00 PM Time of Evaluation: 21:04 Chief Complaint (CC): Fall HISTORY OF PRESENT ILLNESS (HPI): Patient is a 68 year old female with PMHx chronic axial low??back pain s/p??T9-8 laminectomy for dorsal root column stimulator placement??with Cardenas system??on 09/16/21 c/b infection requiring removal of battery with replacement of new battery in the left lumbar region by Dr. Gregg on??02/16/2023,??last seen in clinic 07/17/2023 to discuss possible removal of the device. Pt presents to [facility] ED with c/o lower back pain after reported fall. Neurosurgery was consulted to evaluate. [facility] NEURO SPINAL SURGERY HIGH RISK VARIABLES None currently present Past Medical History: Diagnosis Date ??? Breast cancer (HCC) ??? Chest pain ??? DVT (deep venous thrombosis) (HCC) ??? GERD (gastroesophageal reflux disease) ??? LUL (obstructive sleep apnea) w cpap ??? Other pulmonary embolism without acute cor pulmonale (HCC) ??? rls ??? Type 2 diabetes mellitus without complications (HCC) Past Surgical History: Procedure Laterality Date ??? [...] THE BATTERY IN THE LOWER LUMBAR REGION Allergies Allergen Reactions ??? Latex Rash ??? Ceftriaxone Anaphylaxis and Shortness of Breath R ??? Cephalosporins Anaphylaxis and Shortness of Breath ??? Trazodone Anaphylaxis and Other Shaky, restlessness, itching, throat swelling ??? Contrast-Iodinated Agents For Ct/Other Rash ??? Levofloxacin Urticaria and Skin Reactions ??? Macrobid [Nitrofurantoin] Rash ??? Lisinopril Swelling ??? Ketorolac Itching ??? Metoclopramide Other Twitching ??? Oxycodone Nausea and/or Vomiting ??? Pregabalin Other ??? Adhesive Sensitivity Rash ??? Amlodipine Base Swelling Leg swelling Leg swelling ??? Piperacillin-Tazobactam In D5w Rash ??? Bactrim [Sulfamethoxazole W-Trimethoprim] Vomiting ??? Reslizumab Unknown ??? Skin Adhesives Skin Reactions Current Medications amoxicillin-clavulanate (Augmentin) 875-125 MG tablet Take 1 (one) tablet by mouth every 12 hours FOR 10 DAYS Continuous Blood Gluc Sensor (FreeStyle Eileen 2 Sensor Systm) [facility] [place] APPLY 1 SENSOR AND WEAR FOR 14 DAYS TO CHECK BLOOD SUGAR cyclobenzaprine (Flexeril) 5 MG tablet Take 1 (one) tablet by mouth 3 times daily as needed (Musclespasms) exemestane (AROMASIN) 25 MG tablet Take 1 (one) tablet by mouth DAILY gabapentin (Neurontin) 300 MG capsule Take 1 (one) capsule by mouth 3 times daily HumaLOG KwikPen 100 UNIT/ML pen 26 (twenty six) Units 3 times daily before meals HYDROcodone-acetaminophen ([place]) 10-325 MG tablet Take 1 (one) tablet [...] later. methenamine hippurate (Hiprex) 1 GM tablet Take 1 (one) tablet by mouth 2 times daily Multiple Vitamins-Minerals (Multivitamin Womens 50+ Adv) TABS Take 1 tablet by mouth once daily naloxone HCl (Narcan) 4 MG/0.1ML nasal spray ondansetron, disintegrating, (Zofran ODT) 4 MG tablet DISSOLVE 1 TABLET ON THE TONGUE EVERY 8 HOURSAS NEEDED FOR NAUSEA OR VOMITING ONETOUCH ULTRA test strip 4 times daily oxyBUTYnin CR 24hr (Ditropan XL) 15 MG tablet Take 1 (one) tablet by mouth once daily polyethylene glycol 3350 (Miralax) 17 g packet Take 17 (seventeen) g by mouth once daily rivaroxaban (Xarelto) 20 MG tablet Take 1 (one) tablet by mouth daily with food Reasons: Blockage of Blood Vessel to Lung by a Particle, Blood Clot in a Deep Vein rOPINIRole (REQUIP) 5 MG tablet TAKE 1 TABLET BY MOUTH EVERY NIGHT No current facility-administered medications for this encounter. Current Outpatient Medications Medication ??? amoxicillin-clavulanate (Augmentin) 875-125 MG tablet ??? Continuous Blood Gluc Sensor (FreeStyle Eileen 2 Sensor Systm) MISC ??? cyclobenzaprine (Flexeril) 5 MG tablet ??? exemestane (AROMASIN) 25 MG tablet ??? gabapentin (Neurontin) 300 MG capsule ??? HumaLOG KwikPen 100 UNIT/ML pen ??? HYDROcodone-acetaminophen ([place]) 10-325 MG tablet ??? hydrOXYzine HCl (Atarax) [...] tablet ??? rOPINIRole (REQUIP) 5 MG tablet Social History Tobacco Use ??? Smoking status: Former Packs/day: .5 Types: Cigarettes Quit date: 12/05/1977 Years since quittin.6 ??? Smokeless tobacco: Never Substance Use Topics ??? Alcohol use: No Family History Problem Relation Name Age of Onset ??? Heart Disease Mother ??? Diabetes Mother ??? Cancer Father ??? Hemochromatosis Father ??? Cancer Sister ??? Heart Disease Brother REVIEW OF SYSTEMS Deferred PHYSICAL EXAM There were no vitals taken for this visit. General: grimacing in pain Neuro: Alert, attentive, and oriented x4. Speech is clear and fluent. Motor: Muscle bulk and tone are normal. ?? Hip Flexor Quad Hamstring Tib Ant Gastroc EHL Right 4* 5 5 4+* 5 5 Left 4-* 5 5 5 5 5 *pain limited weakness Reflexes: Rectal tone intact, negative Hoffmans, negative clonus Sensory: distal hypoesthesia in the lower limbs Coordination: No fasciculations LABORATORY Recent Labs Component Name 06/16/23 0848 WBC 8.4 HGB 14.1 HCT 43.6 PLTCOUNT 292 Recent Labs Component Name 06/16/23 0848 05/28/23 1621 NA 135* - POTASSIUM 3.7 3.9 CHLORIDE - 104 CO2 24 25 BUN 14 12 CREATININE 0.63 0.77 GLUCOSE 250* 189* Recent Labs Component Name 02/21/23 1830 INR 1.0 Assessment: 68 year old female with PMHx chronic axial low??back pain s/p??T9-8 laminectomy for dorsal root column stimulator placement??with Cardenas system??on 09/16/21 c/b infection requiring removal of battery with replacement of new battery in the left lumbar region by Dr. Gregg on??02/16/2023,??last seen in clinic 07/17/2023 to discuss possible removal of the device. Pt presents to [facility] ED with c/o lower back pain after reported fall. Neurosurgery was consulted to evaluate. Plan: No neurosurgical interventions at this time. Pt grossly neurologically intact with some pain limited weakness in lower extremities. Recommend discharging home on Medrol dose pack. If pt's pain is severe enough, recommend admission to Medicine for pain management. Neurosurgery will sign off Case discussed with Dr. Gregg at 21:17. Corby Ritchie APRN-DOG BREEDER 07/26/2023 9:00 PM documented in this encounter ED Notes * Justen Diehl, RN - 07/26/2023 11:20 PM CDT Report called to Short Stay nurse Marimar * Cal Alicea MD - 07/26/2023 10:18 PM CDT ASSUMED CARE NOTE Patient signed out to me by Dr. Martin at 10:18 PM. Briefly, Karly Marques is a 68 year old female is being evaluated for back pain in the setting of a fall with chronic back pain and Neurostim device in place. Neurosurgery has also evaluated the patient and signed off. At this time the patient's condition is stable. Pending admission to medicine for back pain. Plan is for admission. Vitals: 07/26/232058 BP: 155/91 Pulse: 82 Resp: 13 Temp: 98.2 ??F (36.8 ??C) SpO2: 98% Weight: 123.8 kg (273 lb) Height: 1.549 m (5' 1 ) ED Course: 10:55 PM Patient admitted to medicine for further workup and management. Clinical Impression: 1. Lumbar back pain 2. Bilateral sciatica 3. Urinary incontinence, unspecified type 4. Hypertension, unspecified type 5. Edema, unspecified type Disposition: Admit to Medicine Cal Alicea MD Emergency Medicine * David Stephens MD - 07/26/2023 9:44 PM CDT [facility] Emergency Department Resident Physician Note HPI: Karly Marques is a 68 year old female with mhx of chronic lower back pain s/p T9-8 laminectomy for dorsal root column stimulator placement??with [employer] [place] system??on 09/16/21 c/b infection requiring removal of battery with replacement of new battery in the left lumbar region who presents as a transfer for neurosurgical evaluation from outside hospital. Patient presented to outside hospital for worsening lower back pain after a ground level fall 3 days ago. Patient reports she fell, landing on her leg and side, did not hit head or lose consciousness. She presents outside hospital because of worsening pain with worsening left-sided weakness and numbness. She was also reporting worsening urinary incontinence. Here patient reports the above symptoms, she denies fevers, chills, headache, chestpain, abdominal pain, nausea/vomiting. She additionally reports difficulty passing bowel movements since the fall. Notably patient reports her pain stimulator is not MRI compatible. Physical: BP 155/91 Pulse 82 Temp 98.2 ??F (36.8 ??C) Resp 13 Ht 1.549 m (5' 1 ) Wt 123.8 kg (273 lb) SpO2 98% General: alert, morbidly obese, no acute distress HEENT: atraumatic, mmm, eomi, perrl Cardiac: rrr, no cardiopulmonary distress Lung: speaking in sentences, no respiratory distress, normal saturation on pulse ox, ctab Back: No c/t midline ttp. There is midline lumbar and sacral tenderness to palpation, tenderness over the lumbar paraspinal muscles bilaterally. Extremities: no injuries or deformities, no peripheral edema. Left lower extremity decreased sensation, strength 5/5 of both lower extremities. Abdomen: ndnt Skin: no rashes, abrasions, ecchymosis, or cyanosis appreciated Neuro: aaox3 (time, place person), cn2-12 grossly intact, moving all 4 equally, clear speech Psych: Pleasant, appropriate situational affect, linear thought process Medical Decision Making & ED Course: Clinical diagnosis 1. Lumbar back pain with sciatic radiation DDx 1. Fracture vs radiculopathy vs sciatica vs postop complication vs cauda equina vs other Plan - labs, review of imaging from outside hospital, neurosurgery consult, reassess Summary and disposition Patient presenting with acute on chronic lower back pain. She was transferred for neurosurgery evaluation. Patient having worsening neuropathy, pain, requiring IV pain medication. Neurosurgery recommending possible discharge with Medrol dose pack vs admission to medicine for pain control. Patient feels she is unable to go home 2' pain and difficulty ambulating. Will admit to medicine for pain control and PT/OT. Unable to obtain MRI given incompatibility with device. Clinical Impressions as of 07/26/23 2226 Lumbar back pain Bilateral sciatica Urinary incontinence, unspecified type Hypertension, unspecified type - Prior to disposition, discussed results, plan, and related precautions with patient. All questions were answered to the best of my ability and they express understanding and are comfortable with plan. Orders Placed This Encounter ??? CBC W AUTO DIFFERENTIAL Standing Status: Standing Number of Occurrences: 1 Order Specific Question: Release to patient Answer: Immediate ??? COMPREHENSIVE METABOLIC PANEL Standing Status: Standing Number of Occurrences: 1 Order Specific Question: Release to patient Answer: Immediate ??? MAGNESIUM BLOOD Standing Status: Standing Number of Occurrences: 1 Order Specific Question: Release to patient Answer: Immediate ??? PT-INR [facility] Standing Status: Standing Number of Occurrences: 1 Order Specific Question: Release to patient Answer: Immediate ??? URINALYSIS REFLEX MICROSCOPIC REFLEX CULTURE Standing Status: Standing Number of Occurrences: 1 Order Specific Question: Release to patient Answer: Immediate ??? TYPE + SCREEN PANEL Standing Status: Standing Number of Occurrences: 1 Order Specific Question: Release to patient Answer: Immediate ??? HYDROmorphone (Dilaudid) injection 0.5 mg ??? cyclobenzaprine (Flexeril) tablet 10 mg Associated attestation - Choco Martin MD - 07/30/2023 6:21 PM CDT EMERGENCY MEDICINE ATTENDING NOTE RESIDENT ATTESTATION Date of Service: 07/26/2023 9:44 PM I have personally seen and evaluated the patient, reviewed the lab results, and radiology imaging; please refer to RESIDENT note for further details. I have discussed the case with the RESIDENT and I agree with his/her assessment and plan of care, except if otherwise noted. (Please see RESIDENT note for further details). Clinical Impression: 1. Lumbar back pain 2. Bilateral sciatica 3. Urinary incontinence, unspecified type 4. Hypertension, unspecified type 5. Edema, unspecified type Choco Martin MD Stone [facility] - Emergency Medicine & Critical Care Medicine Division of Emergency Medicine Division of Pulmonary, Critical Care, and Sleep Medicine [facility] 07/26/2023 9:44 PM * Angeline Gross RN - 07/26/2023 8:52 PM CDT Bed: 15 Expected date: Expected time: Means of arrival: Comments: Med 8 ETA 10 min Aisha Marques in expected from [facility] documented in this encounter Plan of Treatment Scheduled Orders Name Type Priority Associated Diagnoses Order Schedule REASSESSMENT PARAMETERS Respiratory Care Routine ONCE for 1 Occurrences starting 07/27/2023 until 07/27/2023 Scheduled Referrals Name Type Priority Associated Diagnoses Orde r Schedule Ref to Allergy [facility] Outpatient Referral Routine Urinary incontinence, unspecified type Ordered: 07/28/2023 documented as of this encounter Procedures Procedure Name Priority Date/Time Associated Diagnosis Comments CULTURE URINE Routine 08/01/2023 11:42 AM CDT Urinary incontinence, unspecified type GLUCOSE - POINT OF CARE Routine 08/01/2023 11:36 AM CDT URINALYSIS REFLEX TO MICROSCOPIC NO CULTURE Routine 08/01/2023 9:31 AM CDT Urinary incontinence, unspecified type GLUCOSE - POINT OF CARE Routine 08/01/2023 7:35 AM CDT GLUCOSE - POINT OF CARE Routine 07/31/2023 8:10 PM CDT GLUCOSE - POINT OF CARE Routine 07/31/2023 3:11 PM CDT GLUCOSE - POINT OF CARE Routine 07/31/2023 11:51 AM CDT GLUCOSE - POINT OF CARE Routine 07/31/2023 7:41 AM CDT GLUCOSE - POINT OF CARE Routine 07/30/2023 9:32 PM CDT GLUCOSE - POINT OF CARE Routine 07/30/2023 3:03 PM CDT GLUCOSE - POINT OF CARE Routine 07/30/2023 12:01 PM CDT GLUCOSE - POINT OF CARE Routine 07/30/2023 7:15 AM CDT CBC W/O DIFFERENTIAL AM Draw 07/30/2023 1:28 AM CDT RENAL FUNCTION PANEL AM Draw 07/30/2023 1:28 AM CDT MAGNESIUM BLOOD Routine 07/30/2023 1:28 AM CDT GLUCOSE - POINT OF CARE Routine 07/29/2023 9:47 PM CDT GLUCOSE - POINT OF CARE Routine 07/29/2023 4:24 PM CDT GLUCOSE - POINT OF CARE Routine 07/29/2023 11:26 AM CDT GLUCOSE - POINT OF CARE Routine 07/29/2023 7:36 AM CDT GLUCOSE - POINT OF CARE Routine 07/28/2023 9:17 PM CDT GLUCOSE - POINT OF CARE Routine 07/28/2023 4:44 PM CDT GLUCOSE - POINT OF CARE Routine 07/28/2023 11:33 AM CDT GLUCOSE - POINT OF CARE Routine 07/28/2023 7:47 AM CDT GLUCOSE - POINT OF CARE Routine 07/27/2023 7:52 PM CDT GLUCOSE - POINT OF CARE Routine 07/27/2023 6:19 PM CDT GLUCOSE - POINT OF CARE Routine 07/27/2023 1:14 PM CDT VAS LEFT VENOUS DUPLEX LE STAT 07/27/2023 10:21 AM CDT Edema, unspecified type GLUCOSE - POINT OF CARE Routine 07/27/2023 8:17 AM CDT URINE MICROSCOPIC ONLY REFLEX TO CULTURE STAT 07/27/2023 6:19 AM CDT URINALYSIS REFLEX MICROSCOPIC REFLEX CULTURE STAT 07/27/2023 6:19 AM CDT CULTURE URINE STAT 07/27/2023 6:19 AM CDT PT-INR [facility] STAT 07/26/2023 10:26 PM CDT TYPE + SCREEN PANEL STAT 07/26/2023 1 0:26 PM CDT CBC W AUTO DIFFERENTIAL STAT 07/26/2023 10:26 PM CDT COMPREHENSIVE METABOLIC PANEL STAT 07/26/2023 10:26 PM CDT MAGNESIUM BLOOD STAT 07/26/2023 10:26 PM CDT documented in this encounter Results * (ABNORMAL) CULTURE URINE (08/01/2023 11:42 AM CDT) Pathologist [facility] [place] Culture Urine >100,000 CFU/mL Escherichia coli(A) TERRANCE 08/03/2023 12:49 AM CDT [facility] MICROBIOLOGY Urine URINE SPECIMEN OBTAINED BY CLEAN CATCH PROCEDURE / Unknown Collection / Unknown 08/01/2023 11:42 AM CDT 08/01/2023 11:55 AM CDT Narrative Organism Antibiotic Method Susceptibility Escherichia coli Amikacin TERRANCE <=2 ug/mL: Susceptible Escherichia coli Ampicillin TERRANCE >=32 ug/mL: Resistant Escherichia coli Ampicillin-sulbactam TERRANCE 16 ug/mL: Intermediate Escherichia coli Cefazolin TERRANCE <=4 ug/mL: See Comment* Escherichia coli Cefazolin-Urine (uncomplicated infections ONLY) TERRANCE <=4 ug/mL: Susceptible Escherichia coli Cefepime TERRANCE <=1 ug/mL: Susceptible Escherichia coli Ceftriaxone TERRANCE <=1 ug/mL: Susceptible Escherichia coli Ciprofloxacin TERRANCE >=4 ug/mL: Resistant Escherichia coli Extended-Spectrum Beta-Lactamase TERRANCE NEG ug/mL: Neg Escherichia coli Gentamicin TERRANCE <=1 ug/mL: Susceptible Escherichia coli Meropenem TERRANCE <=0.25 ug/mL: Susceptible Escherichia coli Nitrofurantoin TERRANCE <=16 ug/mL: Susceptible Escherichia coli Piperacillin-tazobactam TERRANCE <=4 ug/mL: Susceptible Escherichia coli Tobramycin TERRANCE <=1 ug/mL: Susceptible Escherichia coli Trimethoprim-sulfame thoxaz ole TERRANCE >=320 ug/mL: Resistant Comment: *Cefazolin TERRANCE of </=4 cannot distinguish between susceptible or intermediate for systemic breakpoints. If further defined interpretation is needed, call Microbiology and a disk diffusion test will be performed. Urine breakpoints for cefazolin should only be used when treating uncomplicated UTIs including men and women without urologic abnormality, kidney stones, stents, nephrostomy tubes, signs/symptoms of systemic illness, or pelvic/perineal pain in men. Cefazolin results can be used to predict susceptibility to oral cephalosporins - cephalexin, cefprozil, cefaclor, cefuroxime, cefdinir, and cefpodoxime. For complicated UTIs, use alternative cefazolin susceptibility result above. Watson Bearden MD LAB - MICROBIOLOGY O RDERABLES Performing Organization Address City/[facility]/ZIP Co de Phone Number [facility] MICROBIOLOG[facility] [address] [place] [address], [facility] [phone] * (ABNORMAL) GLUCOSE - POINT OF CARE (08/01/2023 11:36 AM CDT) Glucose WB/POC 164(H) 70 - 115 mg/dL 08/01/2023 11:40 AM CDT [facility] Specimen Type Cap Fingerstick 2023 11:40 AM T [facility] Blood BLOOD SPECIMEN / Unknown 08/01/2023 11:36 AM CDT 08/01/2023 11:40 AM CDT Watson Bearden MD LAB - POINT OF CARE ORDERABLES Performing Organization Address City/[facility]/ZIP Co de Phone Number [facility] [address] [place] [address], [place] [phone] * (ABNORMAL) URINALYSIS REFLEX TO MICROSCOPIC NO CULTURE (08/01/2023 9:31 AM CDT) Color UA Yellow Straw, Yellow 08/01/2023 10:03 AM CDT [facility] Clarity UA Slt Cloudy(A) Clear 08/01/2023 10:03 AM CDT [facility] Specific [place] UA 1.015 1.005 - 1.030 08/01/2023 10:03 AM [facility] pH UA 5.0 5.0 - 8.0 pH 08/01/2023 10:03 AM T [facility] Protein UA Negative Negative 08/01/2023 10:03 AM T [facility] Glucose UA Negative Negative 08/01/2023 10:03 AM [facility] Ketone UA Negative Negative 08/01/2023 10:03 AM [facility] Bilirubin UA Negative Negative 08/01/2023 10:03 AM [facility] Blood UA 1+(A) Negative 08/01/2023 10:03 AM [facility] Nitrite UA Positive(A) Negative 08/01/2023 10:03 AM [facility] Leukocyte Esterase 3+(A) Negative 08/01/2023 10:03 AM [facility] Urobilinogen UA Negative Negative mg/dL 08/01/2023 10:03 AM [facility] RBC UA 11-20(A) None Seen, 0-2, 3-5 /HPF 08/01/2023 10:03 AM [facility] WBC UA 51-100(A) None Seen, 0-5 /HPF 08/01/2023 10:03 AM [facility] WBC Clumps Occasional( A) None /HPF 08/01/2023 10:03 AM [facility] Bacteria UA 3+(A) None /HPF 08/01/2023 10:03 AM [facility] Squamous Epithelial Cells UA 0-2 None Seen, 0-2, 3-5 /HPF 08/01/2023 10:03 AM [facility] Mucus UA 1+ /LPF 08/01/2023 10:03 AM [facility] Urine URINE SPECIMEN OBTAINED BY CLEAN CATCH PROCEDURE / Unknown Collection / Unknown 08/01/2023 9:31 AM CDT 08/01/2023 9:51 AM [facility] - 08/01/2023 10:03 AM CDT Watson Bearden MD LAB - URINALYSIS ORD ERABLES [address] [address], [place] [phone] * (ABNORMAL) GLUCOSE - POINT OF CARE (08/01/2023 7:35 AM CDT) Glucose WB/POC 138(H) 70 - 115 mg/dL 08/01/2023 7:36 AM CDT [facility] Specimen Type Cap Fingerstick 2023 7:36 AM CDT [facility] Blood BLOOD SPECIMEN / Unknown 08/01/2023 7:35 AM CDT 08/01/2023 7:36 AM CDT Brian Bravo MD LAB - POINT OF CARE ORDERABLES Performing Organization Address City/[facility]/ZIP Co de Phone Number [address] [address], [place] [phone] * (ABNORMAL) GLUCOSE - POINT OF CARE (07/31/2023 8:10 PM CDT) Glucose WB/POC 287(H) 70 - 115 mg/dL 07/31/2023 8:15 PM CDT [facility] Specimen Type Cap Fingerstick 2023 8:15 PM CDT [facility] Blood BLOOD SPECIMEN / Unknown 07/31/2023 8:10 PM CDT 07/31/2023 8:14 PM CDT Brian Bravo MD LAB - POINT OF CARE ORDERABLES Performing Organization Address [facility] Co de Phone Number [address] [address], [place] [phone] * (ABNORMAL) GLUCOSE - POINT OF CARE (07/31/2023 3:11 PM CDT) Glucose WB/POC 161(H) 70 - 115 mg/dL 07/31/2023 3:15 PM CDT [facility] Specimen Type Cap Fingerstick 2023 3:15 PM CDT [facility] Blood BLOOD SPECIMEN / Unknown 07/31/2023 3:11 PM CDT 07/31/2023 3:15 PM CDT Brian Bravo MD LAB - POINT OF CARE ORDERABLES Performing Organization Address City/[facility]/ZIP Co de Phone Number [address] [place] [address], [place] [phone] * (ABNORMAL) GLUCOSE - POINT OF CARE (07/31/2023 11:51 AM CDT) Glucose WB/POC 147(H) 70 - 115 mg/dL 07/31/2023 4:36 PM CDT [facility] Specimen Type Cap Fingerstick 2023 4:36 PM CDT [facility] Blood BLOOD SPECIMEN / Unknown 07/31/2023 11:51 AM CDT 07/31/2023 4:36 PM CDT Brian Bravo MD LAB - POINT OF CARE ORDERABLES [facility] [address] [place] [address], [place] [phone] * (ABNORMAL) GLUCOSE - POINT OF CARE (07/31/2023 7:41 AM CDT) Glucose WB/POC 140(H) 70 - 115 mg/dL 07/31/2023 4:36 PM CDT [facility] Specimen Type Cap Fingerstick 2023 4:36 PM CDT [facility] Blood BLOOD SPECIMEN / Unknown 07/31/2023 7:41 AM CDT 07/31/2023 4:36 PM CDT Brian Bravo MD LAB - POINT OF CARE ORDERABLES [facility] [address] [place] [address], [place] [phone] * (ABNORMAL) GLUCOSE - POINT OF CARE (07/30/2023 9:32 PM CDT) Glucose WB/POC 178(H) 70 - 115 mg/dL 07/30/2023 9:35 PM CDT [facility] Specimen Type Cap Fingerstick 2023 9:35 PM CDT [facility] Blood BLOOD SPECIMEN / Unknown 07/30/2023 9:32 PM CDT 07/30/2023 9:35 PM CDT Brian Bravo MD LAB - POINT OF CARE ORDERABLES [address] [address], [place] [phone] * (ABNORMAL) GLUCOSE - POINT OF CARE (07/30/2023 3:03 PM CDT) Glucose WB/POC 230(H) 70 - 115 mg/dL 07/30/2023 3:13 PM CDT [facility] Specimen Type Cap Fingerstick 2023 3:13 PM CDT [facility] Blood BLOOD SPECIMEN / Unknown 07/30/2023 3:03 PM CDT 07/30/2023 3:13 PM CDT Brian Bravo MD LAB - POINT OF CARE ORDERABLES Performing Organization Address City/[facility]/ZIP Co de Phone Number [address] [address], [place] [phone] * (ABNORMAL) GLUCOSE - POINT OF CARE (07/30/2023 12:01 PM CDT) Glucose WB/POC 150(H) 70 - 115 mg/dL 07/30/2023 12:06 PM CDT [facility] Specimen Type Cap Fingerstick 2023 12:06 PM CDT [facility] Blood BLOOD SPECIMEN / Unknown 07/30/2023 12:01 PM CDT 07/30/2023 12:06 PM CDT Brian Bravo MD LAB - POINT OF CARE ORDERABLES [address] [address], [place] [phone] * (ABNORMAL) GLUCOSE - POINT OF CARE (07/30/2023 7:15 AM CDT) Glucose WB/POC 133(H) 70 - 115 mg/dL 07/30/2023 7:25 AM [facility] Specimen Type Cap Fingerstick 2023 7:25 AM [facility] Blood BLOOD SPECIMEN / Unknown 07/30/2023 7:15 AM CDT 07/30/2023 7:25 AM CDT Brian Bravo MD LAB - POINT OF CARE ORDERABLES Performing Organization Address City/State/[facility] Co de Phone Number [facility] [address] [place] [address], [facility] [phone] * (ABNORMAL) RENAL FUNCTION PANEL (07/30/2023 1:28 AM CDT) BUN 20 7 - 26 mg/dL 07/30/2023 2:31 AM [facility] Creatinine 0.67 0.56 - 0.96 mg/dL 07/30/2023 2:31 AM [facility] Sodium 136 136 - 145 mmol/L 07/30/2023 2:31 AM [facility] Potassium 4.4 3.5 - 4.5 mmol/L 07/30/2023 2:31 AM [facility] Chloride 101 98 - 107 mmol/L 07/30/2023 2:31 AM [facility] CO2 27 22 - 29 mmol/L 07/30/2023 2:31 AM [facility] Glucose 238(H) 70 - 115 mg/dL 07/30/2023 2:31 AM [facility] Albumin 2.9(L) 3.4 - 5.0 g/dL 07/30/2023 2:31 AM [facility] Calcium 9.4 8.4 - 10.2 mg/dL 07/30/2023 2:31 AM [facility] Phosphorus 3.0 2.9 - 5.1 mg/dL 07/30/2023 2:31 AM [facility] Anion Gap 8 6 - 16 07/30/2023 2:31 AM [facility] BUN/Creatinine Ratio 30(H) 7 - 23 07/30/2023 2:31 AM [facility] Osmolality Calculated 292 275 - 295 mOsm/kg 07/30/2023 2:31 AM [facility] eGFR by CKD-EPI >90 >=90 mL/min/1.7 3 m2 07/30/2023 2:31 AM [facility] Blood BLOOD SPECIMEN / Unknown Lab Venipuncture / Unknown 07/30/2023 1:28 AM CDT 07/30/2023 2:04 AM CDT Brian Bravo MD LAB - CHEMISTRY ANGEL SPEARS Performing Organization Address City/[facility]/ZIP Co de Phone Number [facility] [address] [place] [address], [place] [phone] * MAGNESIUM BLOOD (07/30/2023 1:28 AM CDT) Pathologist [facility] Magnesium 1.8 1.6 - 2.6 mg/dL 07/30/2023 2:31 AM [facility] Blood BLOOD SPECIMEN / Unknown Lab Venipuncture / Unknown 07/30/2023 1:28 AM CDT 07/30/2023 2:04 AM CDT Brian Bravo MD LAB - CHEMISTRY ANGEL SPEARS Performing Organization Address [facility]/ZIP Co de Phone Number [address] [address], [place] [phone] * (ABNORMAL) CBC W/O DIFFERENTIAL (07/30/2023 1:28 AM CDT) WBC 11.6(H) 4.0 - 10.7 x10E9/L 07/30/2023 2:10 AM [facility] RBC Count 4.20 3.90 - 5.20 x10E12/L 07/30/2023 2:10 AM [facility] Hemoglobin 12.0 11.9 - 15.8 g/dL 07/30/2023 2:10 AM [facility] Hematocrit 37.1 34.8 - 46.1 % 07/30/2023 2:10 AM [facility] MCV 88.3 80.0 - 98.0 fL 07/30/2023 2:10 AM CDT [facility] MCH 28.6 26.7 - 33.6 pg 07/30/2023 2:10 AM T [facility] MCHC 32.3 31.7 - 36.3 g/dL 07/30/2023 2:10 AM CDT [facility] RDW-CV 13.4 11.3 - 14.8 % 07/30/2023 2:10 AM T [facility] Platelet Count 265 150 - 420 x10E9/L 07/30/2023 2:10 AM T [facility] MPV 10.2 7.8 - 11.4 fL 07/30/2023 2:10 AM T [facility] Blood BLOOD SPECIMEN / Unknown Lab Venipuncture / Unknown 07/30/2023 1:28 AM CDT 07/30/2023 2:04 AM CDT Brian Bravo MD LAB - HEMATOLOGY ORD ERABLES [address] [address], [place] [phone] * (ABNORMAL) GLUCOSE - POINT OF CARE (07/29/2023 9:47 PM CDT) Glucose WB/POC 200(H) 70 - 115 mg/dL 07/29/2023 9:51 PM CDT [facility] Specimen Type Cap Fingerstick 2023 9:51 PM CDT [facility] Blood BLOOD SPECIMEN / Unknown 07/29/2023 9:47 PM CDT 07/29/2023 9:51 PM CDT Brian Bravo MD LAB - POINT OF CARE ORDERABLES [facility] [address] [place] [address], [place] [phone] * (ABNORMAL) GLUCOSE - POINT OF CARE (07/29/2023 4:24 PM CDT) Glucose WB/POC 262(H) 70 - 115 mg/dL 07/29/2023 4:25 PM CDT [facility] Specimen Type Cap Fingerstick 2023 4:25 PM CDT [facility] Blood BLOOD SPECIMEN / Unknown 07/29/2023 4:24 PM CDT 07/29/2023 4:25 PM CDT Brian Bravo MD LAB - POINT OF CARE ORDERABLES Performing Organization Address City/[facility] Co de Phone Number [address] [address], [place] [phone] * (ABNORMAL) GLUCOSE - POINT OF CARE (07/29/2023 11:26 AM CDT) Glucose WB/POC 171(H) 70 - 115 mg/dL 07/29/2023 11:28 AM CDT [facility] Specimen Type Cap Fingerstick 2023 11:28 AM CDT [facility] Blood BLOOD SPECIMEN / Unknown 07/29/2023 11:26 AM CDT 07/29/2023 11:28 AM CDT Brian Bravo MD LAB - POINT OF CARE ORDERABLES Performing Organization Address [facility] Co de Phone Number [address] [address], [place] [phone] * (ABNORMAL) GLUCOSE - POINT OF CARE (07/29/2023 7:36 AM CDT) Glucose WB/POC 226(H) 70 - 115 mg/dL 07/29/2023 7:37 AM CDT [facility] Specimen Type Cap Fingerstick 2023 7:37 AM CDT [facility] Blood BLOOD SPECIMEN / Unknown 07/29/2023 7:36 AM CDT 07/29/2023 7:37 AM CDT Brian Bravo MD LAB - POINT OF CARE ORDERABLES Performing Organization Address City/[facility]/ZIP Co de Phone Number [address] [place] [address], [place] [phone] * (ABNORMAL) GLUCOSE - POINT OF CARE (07/28/2023 9:17 PM CDT) Glucose WB/POC 274(H) 70 - 115 mg/dL 07/28/2023 9:22 PM CDT [facility] Specimen Type Cap Fingerstick 2023 9:22 PM CDT [facility] Blood BLOOD SPECIMEN / Unknown 07/28/2023 9:17 PM CDT 07/28/2023 9:22 PM CDT Kip Rocha MD LAB - POINT OF CARE ORDERABLES [facility] [address] [place] [address], [place] [phone] * (ABNORMAL) GLUCOSE - POINT OF CARE (07/28/2023 4:44 PM CDT) Glucose WB/POC 254(H) 70 - 115 mg/dL 07/28/2023 4:46 PM CDT [facility] Specimen Type Arterial 07/28/2023 4:46 PM CDT [facility] Blood BLOOD SPECIMEN / Unknown 07/28/2023 4:44 PM CDT 07/28/2023 4:46 PM CDT Kip Rocha MD LAB - POINT OF CARE ORDERABLES [facility] [address] [place] [address], [place] [phone] * (ABNORMAL) GLUCOSE - POINT OF CARE (07/28/2023 11:33 AM CDT) Glucose WB/POC 190(H) 70 - 115 mg/dL 07/28/2023 11:38 AM CDT [facility] Specimen Type Arterial 07/28/2023 11:38 AM CDT [facility] Blood BLOOD SPECIMEN / Unknown 07/28/2023 11:33 AM CDT 07/28/2023 11:38 AM CDT Kip Rocha MD LAB - POINT OF CARE ORDERABLES [address] [address], [place] [phone] * (ABNORMAL) GLUCOSE - POINT OF CARE (07/28/2023 7:47 AM CDT) Glucose WB/POC 144(H) 70 - 115 mg/dL 07/28/2023 7:49 AM CDT [facility] Specimen Type Arterial 07/28/2023 7:49 AM CDT [facility] Blood BLOOD SPECIMEN / Unknown 07/28/2023 7:47 AM CDT 07/28/2023 7:49 AM CDT Kip Rocha MD LAB - POINT OF CARE ORDERABLES Performing Organization Address City/[facility]/ZIP Co de Phone Number [address] [address], [place] [phone] * (ABNORMAL) GLUCOSE - POINT OF CARE (07/27/2023 7:52 PM CDT) Glucose WB/POC 258(H) 70 - 115 mg/dL 07/27/2023 8:04 PM CDT [facility] Specimen Type Cap Fingerstick 2023 8:04 PM CDT [facility] Blood BLOOD SPECIMEN / Unknown 07/27/2023 7:52 PM CDT 07/27/2023 8:04 PM CDT Kip Rocha MD LAB - POINT OF CARE ORDERABLES [address] [address], [place] [phone] * (ABNORMAL) GLUCOSE - POINT OF CARE (07/27/2023 6:19 PM CDT) Glucose WB/POC 219(H) 70 - 115 mg/dL 07/27/2023 6:28 PM CDT [facility] Specimen Type Cap Fingerstick 2023 6:28 PM CDT [facility] Blood BLOOD SPECIMEN / Unknown 07/27/2023 6:19 PM CDT 07/27/2023 6:28 PM CDT Kip Rocha MD LAB - POINT OF CARE ORDERABLES Performing Organization Address [facility]/ZIP Co de Phone Number [address] [address], [facility] [phone] * (ABNORMAL) GLUCOSE - POINT OF CARE (07/27/2023 1:14 PM CDT) Glucose WB/POC 117(H) 70 - 115 mg/dL 07/27/2023 1:22 PM CDT [facility] Specimen Type Cap Fingerstick 2023 1:22 PM CDT [facility] Blood BLOOD SPECIMEN / Unknown 07/27/2023 1:14 PM CDT 07/27/2023 1:22 PM CDT Kip Rocha MD LAB - POINT OF CARE ORDERABLES Performing Organization Address [facility] Co de Phone Number [address] [address], [facility] [phone] * VAS LEFT VENOUS DUPLEX LE (07/27/2023 10:21 AM CDT) Anatomical Region Laterality Modality Lower Extremity, Upper Extremity Intravascular Ultrasound 07/27/2023 9:29 AM CDT Narrative Procedure Note Justen Ba MD - 07/27/2023 Cal Alicea MD VASCULAR LAB ORDERAB LES * (ABNORMAL) GLUCOSE - POINT OF CARE (07/27/2023 8:17 AM CDT) Glucose WB/POC 170(H) 70 - 115 mg/dL 07/27/2023 8:21 AM CDT [facility] Specimen Type Cap Fingerstick 2023 8:21 AM CDT [facility] Blood BLOOD SPECIMEN / Unknown 07/27/2023 8:17 AM CDT 07/27/2023 8:21 AM CDT Kip Rocha MD LAB - POINT OF CARE ORDERABLES [facility] [address] [place] [address], [facility] [phone] * (ABNORMAL) CULTURE URINE (07/27/2023 6:19 AM CDT) Culture Urine >100,000 CFU/mL Escherichia coli(A) TERRANCE 07/29/2023 7:46 AM CDT [facility] Urine URINE SPECIMEN OBTAINED BY CLEAN CATCH PROCEDURE / Unknown Collection / Unknown 07/27/2023 6:19 AM CDT 07/27/2023 6:58 AM CDT Narrative Organism Antibiotic Method Susceptibility Escherichia coli Amikacin TERRANCE <=2 ug/mL: Susceptible Escherichia coli Ampicillin TERRANCE >=32 ug/mL: Resistant Escherichia coli Ampicillin-sulbactam TERRANCE 8 ug/mL: Susceptible Escherichia coli Cefazolin TERRANCE <=4 ug/mL: See Comment* Escherichia coli Cefazolin-Urine (uncomplicated infections ONLY) TERRANCE <=4 ug/mL: Susceptible Escherichia coli Cefepime TERRANCE <=1 ug/mL: Susceptible Escherichia coli Ceftriaxone TERRANCE <=1 ug/mL: Susceptible Escherichia coli Ciprofloxacin TERRANCE >=4 ug/mL: Resistant Escherichia coli Extended-Spectrum Beta-Lactamase TERRANCE NEG ug/mL: Neg Escherichia coli Gentamicin TERRANCE <=1 ug/mL: Susceptible Escherichia coli Meropenem TERRANCE <=0.25 ug/mL: Susceptible Escherichia coli Nitrofurantoin TERRANCE <=16 ug/mL: Susceptible Escherichia coli Piperacillin-tazobactam TERRANCE <=4 ug/mL: Susceptible Escherichia coli Tobramycin TERRANCE <=1 ug/mL: Susceptible Escherichia coli Trimethoprim-sulfame thoxaz ole TERRANCE >=320 ug/mL: Resistant Comment: *Cefazolin TERRANCE of </=4 cannot distinguish between susceptible or intermediate for systemic breakpoints. If further defined interpretation is needed, call Microbiology and a disk diffusion test will be performed. Urine breakpoints for cefazolin should only be used when treating uncomplicated UTIs including men and women without urologic abnormality, kidney stones, stents, nephrostomy tubes, signs/symptoms of systemic illness, or pelvic/perineal pain in men. Cefazolin results can be used to predict susceptibility to oral cephalosporins - cephalexin, cefprozil, cefaclor, cefuroxime, cefdinir, and cefpodoxime. For complicated UTIs, use alternative cefazolin susceptibility result above. Choco Martin MD LAB - MICROBIOLOGY O RDERABLES [facility] [address] [place] [address], [facility] [phone] * (ABNORMAL) URINE MICROSCOPIC ONLY REFLEX TO CULTURE (07/27/2023 6:19 AM CDT) Reflex Status Culture to follow 07/27/2023 6:58 AM CDT [facility] RBC UA 0-2 None Seen, 0-2, 3-5 /HPF 07/27/2023 6:58 AM CDT [facility] WBC UA 21-50(A) None Seen, 0-5 /HPF 07/27/2023 6:58 AM CDT [facility] Bacteria UA Trace(A) None /HPF 07/27/2023 6:58 AM CDT [facility] Squamous Epithelial Cells UA None Seen None Seen, 0-2, 3-5 /HPF 07/27/2023 6:58 AM T [facility] Mucus UA 1+ /LPF 07/27/2023 6:58 AM CDT [facility] Urine URINE SPECIMEN OBTAINED BY CLEAN CATCH PROCEDURE / Unknown Collection / Unknown 07/27/2023 6:19 AM CDT 07/27/2023 6:29 AM CDT [facility] - 07/27/2023 6:58 AM CDT Choco Martin MD LAB - URINALYSIS ORD ERABLES Performing Organization Address City/[facility]/ZIP Co de Phone Number [facility] [address] [place] [address], [place] [phone] * (ABNORMAL) URINALYSIS REFLEX MICROSCOPIC REFLEX CULTURE (07/27/2023 6:19 AM CDT) Color UA Yellow Straw, Yellow 07/27/2023 6:46 AM [facility] Clarity UA Slt Cloudy(A) Clear 07/27/2023 6:46 AM [facility] Specific [place] UA 1.012 1.005 - 1.030 07/27/2023 6:46 AM [facility] pH UA 5.0 5.0 - 8.0 pH 07/27/2023 6:46 AM [facility] Protein UA Negative Negative 07/27/2023 6:46 AM [facility] Glucose UA Negative Negative 07/27/2023 6:46 AM [facility] Ketone UA Negative Negative 07/27/2023 6:46 AM [facility] Bilirubin UA Negative Negative 07/27/2023 6:46 AM [facility] Blood UA 1+(A) Negative 07/27/2023 6:46 AM [facility] Nitrite UA Positive(A) Negative 07/27/2023 6:46 AM [facility] Leukocyte Esterase Trace(A) Negative 07/27/2023 6:46 AM [facility] Urobilinogen UA Negative Negative mg/dL 07/27/2023 6:46 AM [facility] Urine URINE SPECIMEN OBTAINED BY CLEAN CATCH PROCEDURE / Unknown Collection / Unknown 07/27/2023 6:19 AM CDT 07/27/2023 6:29 AM CDT Narrative [facility] - 07/27/2023 6:46 AM CDT Choco Martin MD LAB - URINALYSIS ORD ERABLES [facility] [address] [place] [address], [facility] [phone] * TYPE + SCREEN PANEL (07/26/2023 10:26 PM CDT) Antibody Screen NEG 11:23 PM CDT [facility] ABO Rh O POS 07/26/2023 11:23 PM CDT [facility] Blood Bank BLOOD SPECIMEN / Unknown Venipuncture / Unknown 07/26/2023 10:26 PM CDT 07/26/2023 10:31 PM CDT Choco Martin MD LAB - BLOOD BANK ORD ERABLES Performing Organization Address [facility]/ZIP Co de Phone Number [facility] [address] [place] [address], [facility] [phone] * PT-INR [facility] (07/26/2023 10:26 PM CDT) PT 14.2 12.1 - 14.8 Seconds 07/26/2023 10:56 PM CDT [facility] INR 1.1 See Comment 07/26/2023 10:56 PM T [facility] Comment:The suggested therap eutic range for standard coumadin (warfarin) therapy is an INR of 2.0-3.0. For high-risk patients (Mechanical Mitral Valve Prosthesis, etc.), the suggested prophylactic therapeutic range is an INR of 2.5-3.5. Blood BLOOD SPECIMEN / Unknown Venipuncture / Unknown 07/26/2023 10:26 PM CDT 07/26/2023 10:34 PM CDT Choco Martin MD LAB - COAGULATION OR DERABLES Performing Organization Address City/[facility]/ZIP Co de Phone Number [facility] [address] [place] [address], [facility] [phone] * MAGNESIUM BLOOD (07/26/2023 10:26 PM CDT) Magnesium 1.6 1.6 - 2.6 mg/dL 07/26/2023 11:00 PM CDT [facility] Blood BLOOD SPECIMEN / Unknown Venipuncture / Unknown 07/26/2023 10:26 PM CDT 07/26/2023 10:34 PM CDT Choco Martin MD LAB - CHEMISTRY ANEGL Herrera Organization Address City/State/ZIP Co de Phone Number [facility] [address] [place] [address], [facility] [phone] * (ABNORMAL) COMPREHENSIVE METABOLIC PANEL (07/26/2023 10:26 PM CDT) BUN 13 7 - 26 mg/dL 07/26/2023 11:00 PM [facility] Creatinine 0.63 0.56 - 0.96 mg/dL 07/26/2023 11:00 PM [facility] Sodium 141 136 - 145 mmol/L 07/26/2023 11:00 PM [facility] Potassium 3.9 3.5 - 4.5 mmol/L 07/26/2023 11:00 PM [facility] Chloride 104 98 - 107 mmol/L 07/26/2023 11:00 PM [facility] CO2 28 22 - 29 mmol/L 07/26/2023 11:00 PM [facility] Glucose 131(H) 70 - 115 mg/dL 07/26/2023 11:00 PM [facility] Calcium 9.5 8.4 - 10.2 mg/dL 07/26/2023 11:00 PM [facility] Protein Total 7.5 6.0 - 8.3 g/dL 07/26/2023 11:00 PM [facility] Albumin 3.1(L) 3.4 - 5.0 g/dL 07/26/2023 11:00 PM [facility] Bilirubin Total 0.5 0.2 - 1.2 mg/dL 07/26/2023 11:00 PM [facility] Alkaline Phosphatase 74 40 - 150 U/L 07/26/2023 11:00 PM [facility] ALT 19 5 - 55 U/L 07/26/2023 11:00 PM [facility] AST 17 5 - 34 U/L 07/26/2023 11:00 PM [facility] Anion Gap 9 6 - 16 07/26/2023 11:00 PM CDT [facility] BUN/Creatinine Ratio 21 7 - 23 07/26/2023 11:00 PM [facility] Osmolality Calculated 294 275 - 295 mOsm/kg 07/26/2023 11:00 PM [facility] Albumin/Globulin Ratio 0.7(L) 1.1 - 2.3 07/26/2023 11:00 PM [facility] eGFR by CKD-EPI >90 >=90 mL/min/1.7 3 m2 07/26/2023 11:00 PM [facility] Blood BLOOD SPECIMEN / Unknown Venipuncture / Unknown 07/26/2023 10:26 PM CDT 07/26/2023 10:34 PM T Choco Martin MD LAB - CHEMISTRY ANGEL [facility] Organization Address City/State/ZIP Co de Phone Number [facility] [address] [place] [address], [facility] [phone] * (ABNORMAL) CBC W AUTO DIFFERENTIAL (07/26/2023 10:26 PM CDT) WBC 10.0 4.0 - 10.7 x10E9/L 07/26/2023 10:42 PM [facility] RBC Count 4.04 3.90 - 5.20 x10E12/L 07/26/2023 10:42 PM [facility] Hemoglobin 11.7(L) 11.9 - 15.8 g/dL 07/26/2023 10:42 PM [facility] Hematocrit 36.1 34.8 - 46.1 % 07/26/2023 10:42 PM [facility] MCV 89.4 80.0 - 98.0 fL 07/26/2023 10:42 PM [facility] MCH 29.0 26.7 - 33.6 pg 07/26/2023 10:42 PM [facility] MCHC 32.4 31.7 - 36.3 g/dL 07/26/2023 10:42 PM [facility] RDW-CV 13.5 11.3 - 14.8 % 07/26/2023 10:42 PM [facility] Platelet Count 268 150 - 420 x10E9/L 07/26/2023 10:42 PM [facility] MPV 9.9 7.8 - 11.4 fL 07/26/2023 10:42 PM [facility] Neutrophil % 60.2 41.0 - 74.0 % 07/26/2023 10:42 PM [facility] Lymphocyte % 28.9 17.0 - 47.0 % 07/26/2023 10:42 PM [facility] Monocyte % 7.6 3.0 - 11.0 % 07/26/2023 10:42 PM [facility] Eosinophil % 2.7 0.0 - 7.0 % 07/26/2023 10:42 PM [facility] Basophil % 0.3 0.0 - 1.6 % 07/26/2023 10:42 PM [facility] Immature Granulocytes % 0.3 0.0 - 1.0 % 07/26/2023 10:42 PM [facility] Neutrophil Absolute 5.98 1.60 - 7.50 x10E9/L 07/26/2023 10:42 PM [facility] Lymphocyte Absolute 2.88 1.00 - 4.40 x10E9/L 07/26/2023 10:42 PM [facility] Monocyte Absolute 0.76 0.15 - 1.00 x10E9/L 07/26/2023 10:42 PM [facility] Eosinophil Absolute 0.27 0.00 - 0.60 x10E9/L 07/26/2023 10:42 PM [facility] Basophil Absolute 0.03 0.00 - 0.13 x10E9/L 07/26/2023 10:42 PM [facility] Blood BLOOD SPECIMEN / Unknown Venipuncture / Unknown 07/26/2023 10:26 PM CDT 07/26/2023 10:34 PM [facility] Choco Martin MD LAB - HEMATOLOGY ORD ERABLES [facility] [address] [place] [id number] [phone] documented in this encounter Visit Diagnoses Diagnosis Lumbar back pain- Primary Lumbago Lumbar back pain Lumbago Bilateral sciatica Sciatica Urinary incontinence, unspecified type Hypertension, unspecified type Edema, unspecified type Breast cancer (HCC) Malignant neoplasm of breast (female), unspecified site Chronic anticoagulation Encounter for long-term (current) use of anticoagulants Essential hypertension Multiple subsegmental pulmonary emboli without acute cor pulmonale (CMS/HCC) LUL (obstructive sleep apnea) Obstructive sleep apnea (adult) (pediatric) Restless legs syndrome (RLS) S/P placement of nerve stimulator Type 2 diabetes mellitus without complication (CMS/HCC) documented in this encounter Administered Medications Inactive Administered Medications - up to 3 most recent administrations Medication Order MAR Action Action Date Dose Rate Site 0.9% NaCl injection 1-10 mL 1-10 mL, Intracatheter, PRN, Other, peripheral line flush, Starting on Mon07/26/23 at 2333, Until Mon08/01/23 at 1756, Flush peripheral IV catheter with 1-10 mL of normal saline before and after medications and prn to clear blood from the line or to verify patency. 0.9% NaCl injection 3 mL 3 mL, Intracatheter, EVERY 8 HOURS, First dose on Mon07/27/23 at 0600, Until Discontinued, Flush peripheral IV catheter with 3 mL of normal saline every 8 hours. $ Given 08/01/2023 6:06 AM CDT 3 mL $ Given 07/31/2023 8:11 PM CDT 3 mL $ Given 07/31/2023 1:27 PM CDT 3 mL acetaminophen (Tylenol) tablet 1,000 mg 1,000 mg, Oral, 3 TIMES DAILY, First dose on Mon07/27/23 at 0900, Until Discontinued, Patient preference for lesser PRN pain meds may be honored when the patient requests a less strong medication, a lower dose, or a less intrusive route of administration when the lesser drug, dose and route have been ordered for the patient. This patient request must be documented in the MAR. If both oral and IV options are ordered for the same pain severity, give oral first unless patient cannot tolerate oral intake $ Given 08/01/2023 1:37 PM CDT 1,000 mg $ Given 08/01/2023 8:13 AM CDT 1,000 mg $ Given 07/31/2023 8:10 PM CDT 1,000 mg amoxicillin-clavulanate (Augmentin) tablet 875 mg 875 mg, Oral, 2 TIMES DAILY, 14 doses, First dose on Mon08/01/23 at 1300, Last dose on Mon08/07/23 at 2100, Administer with food to decrease GI side effects., Indication for anti-infective therapy: Suspected infection, Site of anti-infective therapy: Urine/Genitourinary $ Given 08/01/2023 1:55 PM CDT 875 mg cyclobenzaprine (Flexeril) tablet 10 mg 10 mg, Oral, NOW, 1 dose, On Mon07/26/23 at 2200 $ Given 07/26/2023 10:19 PM CDT 10 mg dextrose 10 % IV bolus 12.5 g, at 468.75 mL/hr, Intravenous, PRN, Other, Bedside Glucose less than 70 mg/dL -If NOT able to eat and/or NPO and with IV Access, Starting on Mon07/26/23 at 2336, Until Mon08/01/23 at 1756, If NOT able to eat and/or NPO and with IV Access: For Bedside Glucose 54-69 mg/dL give 12.5 g Dextrose IV STAT For Bedside Glucose LESS than 54 mg/dl verify with a second Bedside Glucose (from a different site) and give 25 g Dextrose IV STAT Re-check and Re-treat blood glucose EVERY , 10-25 minutes until blood glucose GREATER than or equal to 80 mg/dl. NOTIFY PROVIDER OF HYPOGLYCEMIC EVENT. dextrose 10 % IV bolus 25 g, at 937.5 mL/hr, Intravenous, PRN, Other, Bedside Glucose less than 70 mg/dL -If NOT able to eat and/or NPO and with IV Access, Starting on Mon07/26/23 at 2336, Until Mon08/01/23 at 1756, If NOT able to eat and/or NPO and with IV Access: For Bedside Glucose 54-69 mg/dL - give 12.5 g Dextrose IV STAT For Bedside Glucose LESS than 54 mg/dl - verify with a second Bedside Glucose (from a different site) and give 25 g Dextrose IV STAT Re-check and Re-treat blood glucose EVERY - 10-25 minutes until blood glucose GREATER than or equal to 80 mg/dl. - If repeat bedside glucose 54-79 give 12.5 g Dextrose IV STAT NOTIFY PROVIDER OF HYPOGLYCEMIC EVENT. diphenhydrAMINE (Benadryl) capsule 25 mg 25 mg, Oral, EVERY 4 HOURS PRN, Itching, Starting on Mon07/31/23 at 1635, Until Mon08/01/23 at 1756 $ Given 07/31/2023 4:46 PM CDT 25 mg exemestane (Aromasin) tablet 25 mg 25 mg, Oral, AT BEDTIME, First dose on Mon07/27/23 at 2100, Until Discontinued $ Given 07/31/2023 10:37 PM CDT 25 mg $ Given 07/30/2023 9:14 PM CDT 25 mg $ Given 07/29/2023 8:26 PM CDT 25 mg fosfomycin (Monurol) packet 3 g 3 g, Oral, ONCE, 1 dose, On Mon07/28/23 at 1200, Pour contents into 3-4 oz of water and stir., Indication for restricted anti-infective (Tier 2) therapy: Unable to use any other agent for cystitis, Site of anti-infective therapy: Urine/Genitourinary $ Given 07/28/2023 1:54 PM CDT 3 g gabapentin (Neurontin) capsule 300 mg 300 mg, Oral, 3 TIMES DAILY, First dose on Mon07/27/23 at 0900, Until Discontinued $ Given 08/01/2023 1:37 PM CDT 300 m g $ Given 08/01/2023 8:12 AM CDT 300 mg $ Given 07/31/2023 8:10 PM CDT 300 mg glucagon (Glucagen) injection 1 mg 1 mg, Subcutaneous, PRN, Bedside Glucose less than 70 mg/dL - If NOT able to eat and/or NPO and withOUT IV Access, Starting on Mon07/26/23 at 2336, Until Mon08/01/23 at 1756, If NOT able to eat and/or NPO and NO IV Access: For Bedside glucose 54-69 mg/dL ? - Give 1 mg subcutaneous For Bedside Glucose LESS than 54 mg/dl ? -?verify with a second bedside glucose (from a different site) ? -?Give 1 mg subcutaneous Re-check and Re-treat blood glucose EVERY 10-25 minutes until blood glucose GREATER than or equal to 80 mg/dl.? NOTIFY PROVIDER OF HYPOGLYCEMIC EVENT. Reconstitute vial with 1 mL of sterile water for injection for a final concentration of 1 mg/mL; shake vial gently; use immediately and discard unused portion HYDROmorphone (Dilaudid) injection 0.2 mg 0.2 mg, Intravenous, Once, 1 dose, On Mon07/30/23 at 1430, Patient preference for lesser PRN pain meds may be honored when the patient requests a less strong medication, a lower dose, or a less intrusive route of administration when the lesser drug, dose and route have been ordered for the patient. This patient request must be documented in the MAR. If both oral and IV options are ordered for the same pain severity, give oral first unless patient cannot tolerate oral intake $ Given 07/30/2023 2:35 P M CDT 0.2 mg HYDROmorphone (Dilaudid) injection 0.2 mg 0.2 mg, Intravenous, EVERY 8 HOURS PRN, Severe Pain, Starting on Mon07/31/23 at 0841, Until Mon08/01/23 at 1756, For use if oral option ineffective or unable to be given. Patient preference for lesser PRN pain meds may be honored when the patient requests a less strong medication, a lower dose, or a less intrusive route of administration when the lesser drug, dose and route have been ordered for the patient. This patient request must be documented in the MAR. If both oral and IV options are ordered for the same pain severity, give oral first unless patient cannot tolerate oral intake $ Given 08/01/2023 6:05 AM CDT 0.2 mg $ Given 07/31/2023 8:10 PM CDT 0.2 mg $ Given 07/31/2023 11:48 AM CDT 0.2 mg HYDROmorphone (Dilaudid) injection 0.5 mg 0.5 mg, Intravenous, NOW, 1 dose, On Mon07/26/23 at 2200, Patient preference for lesser PRN pain meds may be honored when the patient requests a less strong medication, a lower dose, or a less intrusive route of administration when the lesser drug, dose and route have been ordered for the patient. This patient request must be documented in the MAR. If both oral and IV options are ordered for the same pain severity, give oral first unless patient cannot tolerate oral intake $ Given 07/26/2023 10:18 PM CDT 0.5 mg HYDROmorphone (Dilaudid) injection 0.5 mg 0.5 mg, Intravenous, EVERY 3 HOURS PRN, Severe Pain, for breakthrough pain, Starting on Mon07/26/23 at 2341, Until Mon07/28/23 at 0953, Patient preference for lesser PRN pain meds may be honored when the patient requests a less strong medication, a lower dose, or a less intrusive route of administration when the lesser drug, dose and route have been ordered for the patient. This patient request must be documented in the MAR. If both oral and IV options are ordered for the same pain severity, give oral first unless patient cannot tolerate oral intake $ Given 07/28/2023 4:30 A M CDT 0.5 mg $ Given 07/28/2023 1:04 AM CDT 0.5 mg $ Given 07/27/2023 9:08 PM CDT 0.5 mg HYDROmorphone (Dilaudid) injection 0.5 mg 0.5 mg, Intravenous, EVERY 6 HOURS PRN, Severe Pain, Starting on Mon07/28/23 at 1106, Until 07/29/23 at 1325, For use if oral option ineffective or unable to be given. Patient preference for lesser PRN pain meds may be honored when the patient requests a less strong medication, a lower dose, or a less intrusive route of administration when the lesser drug, dose and route have been ordered for the patient. This patient request must be documented in the MAR. If both oral and IV options are ordered for the same pain severity, give oral first unless patient cannot tolerate oral intake $ Given 07/29/2023 10:50 AM CDT 0.5 mg $ Given 07/28/2023 9:48 PM CDT 0.5 mg $ Given 07/28/2023 4:39 PM CDT 0.5 mg HYDROmorphone (Dilaudid) injection 0.5 mg 0.5 mg, Intravenous, EVERY 8 HOURS PRN, Severe Pain, Starting on 07/29/23 at 1330, Until 07/31/23 at 0842, For use if oral option ineffective or unable to be given. Patient preference for lesser PRN pain meds may be honored when the patient requests a less strong medication, a lower dose, or a less intrusive route of administration when the lesser drug, dose and route have been ordered for the patient. This patient request must be documented in the MAR. If both oral and IV options are ordered for the same pain severity, give oral first unless patient cannot tolerate oral intake $ Given 07/31/2023 3:45 AM CDT 0.5 mg $ Given 07/30/2023 8:35 AM CDT 0.5 mg insulin aspart (NovoLOG) pen 0-4 Units 0-4 Units, Subcutaneous, AT BEDTIME, First dose on Mon07/27/23 at 2100, Until Discontinued, Low Dose: Correction Insulin Bedside glucose should be done within 30-60 minutes of correction insulin administration. BG (mg/dL) Corrective Action LESS than 70 follow Hypoglycemic guidelines, 70-220 NO bedtime correction insulin 221-260 GIVE 1 unit of insulin 261-300 GIVE 2 units of insulin 301-350 GIVE 3 units of insulin Greater than 350 GIVE 4 units of insulin and notify physician $ Given 07/27/2023 9:03 PM CDT 1 Units Abd Left Lower Quadrant insulin aspart (NovoLOG) pen 0-6 Units 0-6 Units, Subcutaneous, 3 TIMES DAILY WITH MEALS, First dose on Mon07/27/23 at 0800, Until Discontinued, Low Dose: Correction Insulin Bedside glucose should be done within 30-60 minutes of correction insulin administration. BG (mg/dL) Corrective Action LESS than 70 follow Hypoglycemic guidelines, 70-180 NO Correction insulin, 181-220 GIVE 2 units of insulin, 221-260 GIVE 3 units of insulin, 261-300 GIVE 4 units of insulin, 301-350 GIVE 5 units of insulin, Greater than 350 GIVE 6 units of insulin and notify physician. If the patient is NPO: DO NOT HOLD correction insulin If patient is eating meals and has orders for Mealtime insulin, combine and give at the same time. $ Given 07/29/2023 4:26 PM CDT 4 Units Abd Left Lower Quadrant $ Given 07/29/2023 8:31 AM CDT 3 Units Ri ght Arm $ Given 07/28/2023 6:24 PM CDT 3 Units Ab dominal Tissue insulin aspart (NovoLOG) pen 15 Units 15 Units, Subcutaneous, 3 TIMES DAILY WITH MEALS, First dose on Mon07/27/23 at 0800, Until Discontinued, Obtain current Blood Glucose if necessary. May be given immediately before meal, during meal, or immediately after meal is eaten. Meal must be present before administration. $ Given 07/28/2023 8:48 AM CDT 15 Units Abd Right Lower Quadrant $ Given 07/27/2023 6:16 PM CDT 15 Units Le ft Arm $ Given 07/27/2023 1:57 PM CDT 15 Units Ri ght Arm insulin aspart (NovoLOG) pen 18 Units 18 Units, Subcutaneous, 3 TIMES DAILY WITH MEALS, First dose (after last modification) on Mon07/28/23 at 1200, Until Discontinued, Obtain current Blood Glucose if necessary. May be given immediately before meal, during meal, or immediately after meal is eaten. Meal must be present before administration. $ Given 08/01/2023 11:36 AM CDT 18 Units Abd Left Lower Quadrant $ Given 08/01/2023 8:13 AM CDT 18 Units Ab d Left Lower Quadrant $ Given 07/31/2023 5:27 PM CDT 18 Units Ri ght Arm insulin glargine (Lantus) pen 30 Units 30 Units, Subcutaneous, AT BEDTIME, First dose on Mon07/27/23 at 2100, Until Discontinued, Obtain current Blood Glucose if necessary . WASTE DISPOSAL INSTRUCTIONS: Black Bin Disposal required. $ Given 07/31/2023 8:12 PM CDT 30 Units Abd Left Lower Quadr ant $ Given 07/30/2023 9:32 PM CDT 30 Units Le ft Arm $ Given 07/29/2023 8:19 PM CDT 30 Units Ab dominal Tissue lidocaine (Lidoderm) 5 % patch 1 patch 1 patch, Administer over 12 Hours, EVERY 24 HOURS, First dose on Mon07/27/23 at 0015, Until Discontinued, Apply to low back and remove patch after a max of 12 hours of application within a 24 hour period. $ Applied 08/01/2023 2:14 AM CDT 1 patch See C omments $ Applied 07/30/2023 10:33 PM CDT 1 patch B ack $ Applied 07/29/2023 11:24 PM CDT 1 patch B ack methylPREDNISolone (Medrol) tablet 12 mg 12 mg, Oral, DAILY WITH BREAKFAST, 1 dose, First dose on Mon07/30/23 at 0800 $ Given 07/30/2023 10:46 AM CDT 12 mg methylPREDNISolone (Medrol) tablet 16 mg 16 mg, Oral, DAILY WITH BREAKFAST, 1 dose, First dose on Mon07/29/23 at 0800 $ Given 07/29/2023 8:38 AM CDT 16 mg methylPREDNISolone (Medrol) tablet 20 mg 20 mg, Oral, DAILY WITH BREAKFAST, 1 dose, First dose on Mon07/28/23 at 0800 $ Given 07/28/2023 8:49 AM CDT 20 mg methylPREDNISolone (Medrol) tablet 24 mg 24 mg, Oral, DAILY WITH BREAKFAST, 1 dose, First dose on Mon07/27/23 at 0800 $ Given 07/27/2023 10:16 AM CDT 24 mg methylPREDNISolone (Medrol) tablet 4 mg 4 mg, Oral, DAILY WITH BREAKFAST, 1 dose, First dose on Mon08/01/23 at 0800 $ Given 08/01/2023 10:13 AM CDT 4 mg methylPREDNISolone (Medrol) tablet 8 mg 8 mg, Oral, DAILY WITH BREAKFAST, 1 dose, First dose on Mon07/31/23 at 0800 $ Given 07/31/2023 9:58 AM CDT 8 mg ondansetron (disintegrating) (Zofran ODT) tablet 4 mg 4 mg, Oral, EVERY 6 HOURS PRN, Nausea/Vomiting, Starting on Mon07/27/23 at 0339, Until Mon08/01/23 at 1756, Dissolved orally on tongue $ Given 07/31/2023 10:37 PM CDT 4 mg $ Given 07/28/2023 1:04 AM CDT 4 mg $ Given 07/27/2023 7:34 PM CDT 4 mg oxyCODONE (immediate release) (Roxicodone) tablet 10 mg 10 mg, Oral, EVERY 4 HOURS PRN, Severe Pain, Starting on Mon07/26/23 at 2341, Until Mon08/01/23 at 1756, Patient preference for lesser PRN pain meds may be honored when the patient requests a less strong medication, a lower dose, or a less intrusive route of administration when the lesser drug, dose and route have been ordered for the patient. This patient request must be documented in the MAR. If both oral and IV options are ordered for the same pain severity, give oral first unless patient cannot tolerate oral intake $ Given 08/01/2023 11:35 AM CDT 10 mg $ Given 08/01/2023 6:53 AM CDT 10 mg $ Given 08/01/2023 2:14 AM CDT 10 mg oxyCODONE (immediate release) (Roxicodone) tablet 5 mg 5 mg, Oral, EVERY 4 HOURS PRN, Moderate Pain, Starting on Mon07/26/23 at 2341, Until Mon08/01/23 at 1756, Patient preference for lesser PRN pain meds may be honored when the patient requests a less strong medication, a lower dose, or a less intrusive route of administration when the lesser drug, dose and route have been ordered for the patient. This patient request must be documented in the MAR. If both oral and IV options are ordered for the same pain severity, give oral first unless patient cannot tolerate oral intake polyethylene glycol 3350 (Miralax) packet 17 g 17 g, Oral, DAILY, First dose on Mon07/27/23 at 0900, Until Discontinued, Mix in 8 ounces of water, juice, soda, coffee or tea prior to administration $ Given 08/01/2023 8:12 AM CDT 17 g $ Given 07/31/2023 8:30 AM CDT 17 g $ Given 07/30/2023 8:37 AM CDT 17 g rivaroxaban (Xarelto) tablet 20 mg 20 mg, Oral, DAILY WITH FOOD, First dose on Mon07/27/23 at 0900, Until Discontinued, For tube administration, please refer to the MAR References links: Administration Dose of 15 mg or greater should be taken with food $ Given 08/01/2023 8:13 AM CDT 20 m g $ Given 07/31/2023 8:31 AM CDT 20 mg $ Given 07/30/2023 8:37 AM CDT 20 mg rOPINIRole (Requip) tablet 5 mg 5 mg, Oral, AT BEDTIME, First dose on Mon07/27/23 at 2100, Until Discontinued $ Given 07/31/2023 8:10 PM CDT 5 mg $ Given 07/30/2023 9:17 PM CDT 5 mg $ Given 07/29/2023 8:18 PM CDT 5 mg senna-docusate (Senokot-S) tablet 1 tablet 1 tablet, Oral, DAILY, First dose on Valeri 07/27/23 at 0900, Until Discontinued $ Given 08/01/2023 8:13 AM CDT 1 tablet $ Given 07/31/2023 8:39 AM CDT 1 tablet $ Given 07/30/2023 8:37 AM CDT 1 tablet tolterodine ER 24hr (Detrol LA) capsule 4 mg 4 mg, Oral, DAILY, First dose on Valeri 07/27/23 at 0900, Until Discontinued, Do not crush or chew. $ Given 08/01/2023 8:12 AM CDT 4 mg $ Given 07/31/2023 8:30 AM CDT 4 mg $ Given 07/30/2023 8:37 AM CDT 4 mg documented in this encounter Active and Recently Administered Medications Times are shown in CDT. Scheduled Medication Order 07/30/2023 07/31/2023 08/01/2023 0.9% NaCl injection 3 mL(Linked Group 1) 3 mL, Intracatheter, EVERY 8 HOURS, First dose on Valeri 07/27/23 at 0600, Until Discontinued, Flush peripheral IV catheter with 3 mL of normal saline every 8 hours. 0554 (Not Administered - Provider: Eh Cruz RN - Reason: Refused-Patient)1305 ($ Given - Provider: Khanh Ray RN)2232 ($ Given - Provider: Laury Li RN) 0533 ($ Given - Provider: Laury Li RN)1327 ($ Given - Provider: Chantel Britton RN)2010 ($ Given - Provider: Christin Khalil RN) 0555 (Not Administered - Provider: Christin Khalil RN - Reason: Refused-Patient)0606 ($ Given - Provider: Christin Khalil RN)1315 (Not Administered - Provider: Khanh Ray RN - Reason: See Comments) acetaminophen (Tylenol) tablet 1,000 mg 1,000 mg, Oral, 3 TIMES DAILY, First dose on Valeri 07/27/23 at 0900, Until Discontinued, Patient preference for lesser PRN pain meds may be honored when the patient requests a less strong medication, a lower dose, or a less intrusive route of administration when the lesser drug, dose and route have been ordered for the patient. This patient request must be documented in the MAR. If both oral and IV options are ordered for the same pain severity, give oral first unless patient cannot tolerate oral intake 0837 ($ Given - Provider: Khanh Ray RN)1305 ($ Given - Provider: Khanh Ray RN)211 ($ Given - Provider: Laury Li RN) 0830 ($ Given - Provider: Chantel Britton RN)1327 ($ Given - Provider: Chantel Britton, NURIS)2009 ($ Given - Provider: Christin Khalil RN) 0813 ($ Given - Provider: Khanh Ray RN)1337 ($ Given - Provider: Khanh Ray RN) amoxicillin-clavulanate (Augmentin) tablet 875 mg 875 mg, Oral, 2 TIMES DAILY, 14 doses, First dose on Mon08/01/23 at 1300, Last dose on Mon08/07/23 at 2100, Administer with food to decrease GI side effects., Indication for anti-infective therapy: Suspected infection, Site of anti-infective therapy: Urine/Genitourinary 1355 ($ Given - Provider: Khanh Ray RN) exemestane (Aromasin) tablet 25 mg 25 mg, Oral, AT BEDTIME, First dose on Mon07/27/23 at 2100, Until Discontinued 2113 ($ Given - Provider: Laury Li RN) 223 ($ Given - Provider: Christin Khalil RN) gabapentin (Neurontin) capsule 300 mg 300 mg, Oral, 3 TIMES DAILY, First dose on Mon07/27/23 at 0900, Until Discontinued 0837 ($ Given - Provider: Khanh Ray RN)1305 ($ Given - Provider: Khanh Ray RN)211 ($ Given - Provider: Laury Li RN) 0830 ($ Given - Provider: Chantel Britton RN)1327 ($ Given - Provider: Chantel Britton RN)2009 ($ Given - Provider: Christin Khalil RN) 0812 ($ Given - Provider: Khanh Ray RN)1337 ($ Given - Provider: Khanh Ray RN) HYDROmorphone (Dilaudid) injection 0.2 mg (COMPLETED) 0.2 mg, Intravenous, Once, 1 dose, On 07/30/23 at 1430, Patient preference for lesser PRN pain meds may be honored when the patient requests a less strong medication, a lower dose, or a less intrusive route of administration when the lesser drug, dose and route have been ordered for the patient. This patient request must be documented in the MAR. If both oral and IV options are ordered for the same pain severity, give oral first unless patient cannot tolerate oral intake 1435 ($ Given - Provider: Khanh Ray RN) insulin aspart (NovoLOG) pen 0-6 Units 0-6 Units, Subcutaneous, 3 TIMES DAILY WITH MEALS, First dose on Valeri 07/27/23 at 0800, Until Discontinued, Low Dose: Correction Insulin Bedside glucose should be done within 30-60 minutes of correction insulin administration. BG (mg/dL) Corrective Action LESS than 70 follow Hypoglycemic guidelines, 70-180 NO Correction insulin, 181-220 GIVE 2 units of insulin, 221-260 GIVE 3 units of insulin, 261-300 GIVE 4 units of insulin, 301-350 GIVE 5 units of insulin, Greater than 350 GIVE 6 units of insulin and notify physician. If the patient is NPO: DO NOT HOLD correction insulin If patient is eating meals and has orders for Mealtime insulin, combine and give at the same time. 0839 (Not Administered - Provider: Khanh Ray RN - Reason: See Comments)1202 (Not Administered - Provider: Khanh Ray RN - Reason: See Comments)1657 (Not Administered - Provider: Khanh Ray RN - Reason: See Comments) 0841 (Not Administered - Provider: Chantel Britton RN - Reason: Per Administration Instructions)1200 (Not Administered - Provider: Chantel Britton RN - Reason: Per Administration Instructions)1649 (Not Administered - Provider: Chantel Britton RN - Reason: Per Administration Instructions) 0813 (Not Administered - Provider: Khanh Ray RN - Reason: See Comments)1137 (Not Administered - Provider: Khanh Ray RN - Reason: See Comments) insulin aspart (NovoLOG) pen 18 Units 18 Units, Subcutaneous, 3 TIMES DAILY WITH MEALS, First dose (after last modification) on Mon07/28/23 at 1200, Until Discontinued, Obtain current Blood Glucose if necessary. May be given immediately before meal, during meal, or immediately after meal is eaten. Meal must be present before administration. 0840 ($ Given - Provider: Khanh Ray RN)1202 ($ Given - Provider: Khanh Ray RN)1656 ($ Given - Provider: Khanh Ray RN) 0839 ($ Given - Provider: Chantel Britton, NURIS)1154 ($ Given - Provider: Chantel Britton, NURIS)1727 ($ Given - Provider: Chantel Britton, NURIS) 0813 ($ Given - Provider: Khanh Ray RN)1136 ($ Given - Provider: Khanh Ray RN) insulin glargine (Lantus) pen 30 Units 30 Units, Subcutaneous, AT BEDTIME, First dose on Mon07/27/23 at 2100, Until Discontinued, Obtain current Blood Glucose if necessary . WASTE DISPOSAL INSTRUCTIONS: Black Bin Disposal required. 2131 ($ Given - Provider: Laury Li RN) 2011 ($ Given - Provider: Christin Khalil, NURIS) lidocaine (Lidoderm) 5 % patch 1 patch 1 patch, Administer over 12 Hours, EVERY 24 HOURS, First dose on Mon07/27/23 at 0015, Until Discontinued, Apply to low back and remove patch after a max of 12 hours of application within a 24 hour period. 1042 (Removed - Provider: Khanh Ray RN)2233 ($ Applied - Provider: Laury Li, NURIS) 0959 (Removed - Provider: Chantel Britton, NURIS) 0214 ($ Applied - Provider: Christin Khalil, NURIS - Comment: Left lower back)1229 (Removed - Provider: Khanh Ray RN) methylPREDNISolone (Medrol) tablet 12 mg (COMPLETED)(Linked Group 2) 12 mg, Oral, DAILY WITH BREAKFAST, 1 dose, First dose on Mon07/30/23 at 0800 1046 ($ Given - Provider: Khanh Ray RN) methylPREDNISolone (Medrol) tablet 4 mg (COMPLETED)(Linked Group 2) 4 mg, Oral, DAILY WITH BREAKFAST, 1 dose, First dose on Mon08/01/23 at 0800 1013 ($ Given - Provider: Khanh Ray RN) methylPREDNISolone (Medrol) tablet 8 mg (COMPLETED)(Linked Group 2) 8 mg, Oral, DAILY WITH BREAKFAST, 1 dose, First dose on Mon07/31/23 at 0800 0958 ($ Given - Provider: Chantel Britton RN) polyethylene glycol 3350 (Miralax) packet 17 g 17 g, Oral, DAILY, First dose on Mon07/27/23 at 0900, Until Discontinued, Mix in 8 ounces of water, juice, soda, coffee or tea prior to administration 0837 ($ Given - Provider: Khanh Ray RN) 0830 ($ Given - Provider: Chantel Britton RN) 0812 ($ Given - Provider: Khanh Ray RN) rivaroxaban (Xarelto) tablet 20 mg 20 mg, Oral, DAILY WITH FOOD, First dose on Mon07/27/23 at 0900, Until Discontinued, For tube administration, please refer to the MAR References links: Administration Dose of 15 mg or greater should be taken with food 0837 ($ Given - Provider: Khanh Ray RN) 0831 ($ Given - Provider: Chantel Britton RN) 0813 ($ Given - Provider: Khanh Ray RN) rOPINIRole (Requip) tablet 5 mg 5 mg, Oral, AT BEDTIME, First dose on Mon07/27/23 at 2100, Until Discontinued 2116 ($ Given - Provider: Laury Li, NURIS) 2009 ($ Given - Provider: Christin Khalil, NURIS) senna-docusate (Senokot-S) tablet 1 tablet 1 tablet, Oral, DAILY, First dose on Mon07/27/23 at 0900, Until Discontinued 0837 ($ Given - Provider: Khanh Ray RN) 0839 ($ Given - Provider: Chantel Britton RN) 0813 ($ Given - Provider: Khanh Ray RN) tolterodine ER 24hr (Detrol LA) capsule 4 mg 4 mg, Oral, DAILY, First dose on Valeri 07/27/23 at 0900, Until Discontinued, Do not crush or chew. 0837 ($ Given - Provider: Khanh Ray, NURIS) 0830 ($ Given - Provider: Chnatel Britton, NURIS) 0812 ($ Given - Provider: Khanh Ray, NURIS) PRN Medication Order 07/30/2023 07/31/2023 08/01/2023 0.9% NaCl injection 1-10 mL(Linked Group 1) 1-10 mL, Intracatheter, PRN, Other, peripheral line flush, Starting on Mon07/26/23 at 2333, Until Mon08/01/23 at 1756, Flush peripheral IV catheter with 1-10 mL of normal saline before and after medications and prn to clear blood from the line or to verify patency. dextrose 10 % IV bolus(Linked Group 3) 12.5 g, at 468.75 mL/hr, Intravenous, PRN, Other, Bedside Glucose less than 70 mg/dL -If NOT able to eat and/or NPO and with IV Access, Starting on Mon07/26/23 at 2336, Until Mon08/01/23 at 1756, If NOT able to eat and/or NPO and with IV Access: For Bedside Glucose 54-69 mg/dL give 12.5 g Dextrose IV STAT For Bedside Glucose LESS than 54 mg/dl verify with a second Bedside Glucose (from a different site) and give 25 g Dextrose IV STAT Re-check and Re-treat blood glucose EVERY , 10-25 minutes until blood glucose GREATER than or equal to 80 mg/dl. NOTIFY PROVIDER OF HYPOGLYCEMIC EVENT. dextrose 10 % IV bolus(Linked Group 3) 25 g, at 937.5 mL/hr, Intravenous, PRN, Other, Bedside Glucose less than 70 mg/dL -If NOT able to eat and/or NPO and with IV Access, Starting on Mon07/26/23 at 2336, Until Mon08/01/23 at 1756, If NOT able to eat and/or NPO and with IV Access: For Bedside Glucose 54-69 mg/dL - give 12.5 g Dextrose IV STAT For Bedside Glucose LESS than 54 mg/dl - verify with a second Bedside Glucose (from a different site) and give 25 g Dextrose IV STAT Re-check and Re-treat blood glucose EVERY - 10-25 minutes until blood glucose GREATER than or equal to 80 mg/dl. - If repeat bedside glucose 54-79 give 12.5 g Dextrose IV STAT NOTIFY PROVIDER OF HYPOGLYCEMIC EVENT. diphenhydrAMINE (Benadryl) capsule 25 mg 25 mg, Oral, EVERY 4 HOURS PRN, Itching, Starting on Mon07/31/23 at 1635, Until Mon08/01/23 at 1756 1646 ($ Given - Provider: Chantel Britton RN) glucagon (Glucagen) injection 1 mg(Linked Group 3) 1 mg, Subcutaneous, PRN, Bedside Glucose less than 70 mg/dL - If NOT able to eat and/or NPO and withOUT IV Access, Starting on Mon07/26/23 at 2336, Until Mon08/01/23 at 1756, If NOT able to eat and/or NPO and NO IV Access: For Bedside glucose 54-69 mg/dL ? - Give 1 mg subcutaneous For Bedside Glucose LESS than 54 mg/dl ? -?verify with a second bedside glucose (from a different site) ? -?Give 1 mg subcutaneous Re-check and Re-treat blood glucose EVERY 10-25 minutes until blood glucose GREATER than or equal to 80 mg/dl.? NOTIFY PROVIDER OF HYPOGLYCEMIC EVENT. Reconstitute vial with 1 mL of sterile water for injection for a final concentration of 1 mg/mL; shake vial gently; use immediately and discard unused portion glucose (Diabetic Use) oral gel Oral, PRN, Other, Bedside Glucose less than 70 mg/dL, Starting on Mon07/26/23 at 2336, Until Mon08/01/23 at 1756, If able to take oral medications: For Bedside Glucose 54 - 69 mg/dL Give 15 grams of oral carbohydrates - 1 glucose gel (see MAR) If patient refuses glucose gel, then offer: - 4 ounces of fruit juice OR - 4 ounces non-diet soda OR - 8 ounces of fat-free milk For Bedside Glucose LESS than 54 mg/dL verify with a second Bedside Glucose (from a different site) - If pt is symptomatic, do not delay treatment - If accuracy of the POC glucose is in question, confirm glucose with a STAT laboratory test Give 30 grams of oral carbohydrates - 2 glucose gels (see MAR) If patient refuses glucose gel, then offer: - 8 ounces of fruit juice OR - 8 ounces non-diet soda OR - 16 ounces of fat-free milk Re-check and Re-treat blood glucose EVERY 10-25 minutes until blood glucose GREATER than or equal to 80 mg/dl. - If on recheck, bedside glucose 54-79 mg/dL - Give 15 grams of oral carbohydrates (see above for choices) NOTIFY PROVIDER OF HYPOGLYCEMIC EVENT. HYDROmorphone (Dilaudid) injection 0.2 mg 0.2 mg, Intravenous, EVERY 8 HOURS PRN, Severe Pain, Starting on 07/31/23 at 0841, Until Tu08/01/23 at 1756, For use if oral option ineffective or unable to be given. Patient preference for lesser PRN pain meds may be honored when the patient requests a less strong medication, a lower dose, or a less intrusive route of administration when the lesser drug, dose and route have been ordered for the patient. This patient request must be documented in the MAR. If both oral and IV options are ordered for the same pain severity, give oral first unless patient cannot tolerate oral intake 1148 ($ Given - Provider: Chantel Britton RN)2010 ($ Given - Provider: Christin Khalil RN) 0605 ($ Given - Provider: Christin Khalil RN) HYDROmorphone (Dilaudid) injection 0.5 mg (CANCELED) 0.5 mg, Intravenous, EVERY 8 HOURS PRN, Severe Pain, Starting on 07/29/23 at 1330, Until 07/31/23 at 0842, For use if oral option ineffective or unable to be given. Patient preference for lesser PRN pain meds may be honored when the patient requests a less strong medication, a lower dose, or a less intrusive route of administration when the lesser drug, dose and route have been ordered for the patient. This patient request must be documented in the MAR. If both oral and IV options are ordered for the same pain severity, give oral first unless patient cannot tolerate oral intake 0835 ($ Given - Provider: Khanh Ray RN) 0345 ($ Given - Provider: Laury Li, RN) ondansetron (disintegrating) (Zofran ODT) tablet 4 mg 4 mg, Oral, EVERY 6 HOURS PRN, Nausea/Vomiting, Starting on Valeri 07/27/23 at 0339, Until Mon08/01/23 at 1756, Dissolved orally on tongue 2237 ($ Given - Provider: Christin Khalil, NURIS) oxyCODONE (immediate release) (Roxicodone) tablet 10 mg(Linked Group 4) 10 mg, Oral, EVERY 4 HOURS PRN, Severe Pain, Starting on 07/26/23 at 2341, Until Mon08/01/23 at 1756, Patient preference for lesser PRN pain meds may be honored when the patient requests a less strong medication, a lower dose, or a less intrusive route of administration when the lesser drug, dose and route have been ordered for the patient. This patient request must be documented in the MAR. If both oral and IV options are ordered for the same pain severity, give oral first unless patient cannot tolerate oral intake 0249 ($ Given - Provider: Eh Cruz RN)0652 ($ Given - Provider: Eh Cruz RN)1158 ($ Given - Provider: Khanh Ray RN)1734 ($ Given - Provider: Khanh Ray RN)2122 ($ Given - Provider: Laury Li, RN) 0830 ($ Given - Provider: Chantel Britton RN)1327 ($ Given - Provider: Chantel Britton RN)1726 ($ Given - Provider: Chantel Britton RN)2237 ($ Given - Provider: Christin Khalil, NURIS) 0214 ($ Given - Provider: Christin Khalil, NURIS)0653 ($ Given - Provider: Christin Khalil, NURIS)1135 ($ Given - Provider: Khanh Ray RN) oxyCODONE (immediate release) (Roxicodone) tablet 5 mg(Linked Group 4) 5 mg, Oral, EVERY 4 HOURS PRN, Moderate Pain, Starting on Mon07/26/23 at 2341, Until Mon08/01/23 at 1756, Patient preference for lesser PRN pain meds may be honored when the patient requests a less strong medication, a lower dose, or a less intrusive route of administration when the lesser drug, dose and route have been ordered for the patient. This patient request must be documented in the MAR. If both oral and IV options are ordered for the same pain severity, give oral first unless patient cannot tolerate oral intake 0249 (See Alternative - Provider: Eh Cruz, NURIS)0652 (See Alternative - Provider: Eh Cruz RN)1158 (See Alternative - Provider: Khanh Ray, NURIS)1734 (See Alternative - Provider: Khanh Ray, NURIS)2122 (See Alternative - Provider: Laury Li, NURIS) 0830 (See Alternative - Provider: Chantel Britton, NURIS)1327 (See Alternative - Provider: Chantel Britton, NURIS)1726 (See Alternative - Provider: Chantel Britton, NURIS)2237 (See Alternative - Provider: Christin Khalil, NURIS) 0214 (See Alternative - Provider: Christin Khalil, NURIS)0653 (See Alternative - Provider: Christin Khalil, NURIS)1135 (See Alternative - Provider: Khanh Ray RN) Linked Groups Order Group 1: SALINE LOCK, INSERT AND MAINTAIN (CANCELED) Routine, CONTINUOUS, Starting on Mon07/26/23 at 2345, Until Specified, New collection, Task Completed: Yes And 0.9% NaCl injection 3 mLJump to med 3 mL, Intracatheter, EVERY 8 HOURS, First dose on Mon07/27/23 at 0600, Until Discontinued, Flush peripheral IV catheter with 3 mL of normal saline every 8 hours. And 0.9% NaCl injection 1-10 mLJump to med 1-10 mL, Intracatheter, PRN, Other, peripheral line flush, Starting on Mon07/26/23 at 2333, Until Mon08/01/23 at 1756, Flush peripheral IV catheter with 1-10 mL of normal saline before and after medications and prn to clear blood from the line or to verify patency. Group 2: methylPREDNISolone (Medrol) tablet 24 mg (COMPLETED) 24 mg, Oral, DAILY WITH BREAKFAST, 1 dose, First dose on Mon07/27/23 at 0800 Followed by methylPREDNISolone (Medrol) tablet 20 mg (COMPLETED) 20 mg, Oral, DAILY WITH BREAKFAST, 1 dose, First dose on Mon07/28/23 at 0800 Followed by methylPREDNISolone (Medrol) tablet 16 mg (COMPLETED) 16 mg, Oral, DAILY WITH BREAKFAST, 1 dose, First dose on Mon07/29/23 at 0800 Followed by methylPREDNISolone (Medrol) tablet 12 mg (COMPLETED)Jump to med 12 mg, Oral, DAILY WITH BREAKFAST, 1 dose, First dose on Mon07/30/23 at 0800 Followed by methylPREDNISolone (Medrol) tablet 8 mg (COMPLETED)Jump to med 8 mg, Oral, DAILY WITH BREAKFAST, 1 dose, First dose on Mon07/31/23 at 0800 Followed by methylPREDNISolone (Medrol) tablet 4 mg (COMPLETED)Jump to med 4 mg, Oral, DAILY WITH BREAKFAST, 1 dose, First dose on Mon08/01/23 at 0800 Group 3: dextrose 10 % IV bolusJump to med 12.5 g, at 468.75 mL/hr, Intravenous, PRN, Other, Bedside Glucose less than 70 mg/dL -If NOT able to eat and/or NPO and with IV Access, Starting on Mon07/26/23 at 2336, Until Mon08/01/23 at 1756, If NOT able to eat and/or NPO and with IV Access: For Bedside Glucose 54-69 mg/dL give 12.5 g Dextrose IV STAT For Bedside Glucose LESS than 54 mg/dl verify with a second Bedside Glucose (from a different site) and give 25 g Dextrose IV STAT Re-check and Re-treat blood glucose EVERY , 10-25 minutes until blood glucose GREATER than or equal to 80 mg/dl. NOTIFY PROVIDER OF HYPOGLYCEMIC EVENT. Or dextrose 10 % IV bolusJump to med 25 g, at 937.5 mL/hr, Intravenous, PRN, Other, Bedside Glucose less than 70 mg/dL -If NOT able to eat and/or NPO and with IV Access, Starting on Mon07/26/23 at 2336, Until Mon08/01/23 at 1756, If NOT able to eat and/or NPO and with IV Access: For Bedside Glucose 54-69 mg/dL - give 12.5 g Dextrose IV STAT For Bedside Glucose LESS than 54 mg/dl - verify with a second Bedside Glucose (from a different site) and give 25 g Dextrose IV STAT Re-check and Re-treat blood glucose EVERY - 10-25 minutes until blood glucose GREATER than or equal to 80 mg/dl. - If repeat bedside glucose 54- 79 give 12.5 g Dextrose IV STAT NOTIFY PROVIDER OF HYPOGLYCEMIC EVENT. Or glucagon (Glucagen) injection 1 mgJump to med 1 mg, Subcutaneous, PRN, Bedside Glucose less than 70 mg/dL - If NOT able to eat and/or NPO and withOUT IV Access, Starting on Mon07/26/23 at 2336, Until Mon08/01/23 at 1756, If NOT able to eat and/or NPO and NO IV Access: For Bedside glucose 54-69 mg/dL ? - Give 1 mg subcutaneous For Bedside Glucose LESS than 54 mg/dl ? -?verify with a second bedside glucose (from a different site) ? - ?Give 1 mg subcutaneous Re-check and Re-treat blood glucose EVERY 10-25 minutes until blood glucose GREATER than or equal to 80 mg/dl.? NOTIFY PROVIDER OF HYPOGLYCEMIC EVENT. Reconstitute vial with 1 mL of sterile water for injection for a final concentration of 1 mg/mL; shake vial gently; use immediately and discard unused portion Group 4: oxyCODONE (immediate release) (Roxicodone) tablet 5 mgJump to med 5 mg, Oral, EVERY 4 HOURS PRN, Moderate Pain, Starting on Mon07/26/23 at 2341, Until Mon08/01/23 at 1756, Patient preference for lesser PRN pain meds may be honored when the patient requests a less strong medication, a lower dose, or a less intrusive route of administration when the lesser drug, dose and route have been ordered for the patient. This patient request must be documented in the MAR. If both oral and IV options are ordered for the same pain severity, give oral first unless patient cannot tolerate oral intake Or oxyCODONE (immediate release) (Roxicodone) tablet 10 mgJump to med 10 mg, Oral, EVERY 4 HOURS PRN, Severe Pain, Starting on Mon07/26/23 at 2341, Until Mon08/01/23 at 1756, Patient preference for lesser PRN pain meds may be honored when the patient requests a less strong medication, a lower dose, or a less intrusive route of administration when the lesser drug, dose and route have been ordered for the patient. This patient request must be documented in the MAR. If both oral and IV options are ordered for the same pain severity, give oral first unless patient cannot tolerate oral intake documented in this encounter Care Teams River Tester Relationship Specialty Start Date End Date Justen Gale MD PCP - General 07/05/21 documented as of this encounter
--- OUTSIDE RECORDS SUMMARY | 2024-04-26 02:30 | XMS_ITS | Encounter Summary ---
Author Organization [facility] Address [address] [place] [address] Care Team Providers Care Practicing Md Anesthesiologist Name Role Phone Justen Gale MD Primary Care Provider [phone] Encounter Details Date Type Department Care Team (Late st Contact Info) Description 08/01/2023 [facility] [address] [place] [address] Watson Bearden MD [facility] [id number] [place] [address] Low back pain, unspecified Social History Tobacco Use Types Packs/Day Years [...] heating? Somewhat hard 05/16/2023 [facility] of Occupat ional Health - Occupational Stress [...] as of this encounter Visit Diagnoses Diagnosis Low back pain, unspecified documented in this encounter Care Teams Practicing Md Anesthesiologist Relationship Specialty Start Date End Date Justen Gale MD PCP - General 07/05/21 documented as of this encounter
--- OUTSIDE RECORDS SUMMARY | 2024-04-26 02:30 | XMS_ITS | Encounter Summary ---
Author Organization [facility] Address [address] [place] [address] Care Team Providers Care Cotton Machine Operator Name Role Phone Justen Gale MD Primary Care Provider [phone] Reason for Visit * Reason Onset Date Comments Transitions Of Care 08/02/2023 Encounter Details Date Type Department Care Team (Late st Contact Info) Description 08/02/[address] [facility]ORD[facility] [address] [place] [id number] Opal Burch, RN Transitions Of Care Social [...] care, and heating? Somewhat hard 05/16/2023 [facility] [place] of Occupat ional Health - Occupational Stress [...] place to sleep or slept in a residential (including now)? No 05/16/2023 Sex and Gender [...] Telephone Encounter - Opal Burch RN - 08/02/2023 12:47 PM CDT Transition Woodwork Teacher (TCC) Kary burch RN post discharge follow-up contact by telephone: Patient with recent IP discharge from [facility] on 07/31 and had Readmission Risk Assessment (score of 25). As such, Patient receiving 1-2 week follow-up call. This TCC contacted pt by telephone ([phone]) to complete pt post-discharge follow-up contact. 1) How are you feeling? Tired bu tok 2) How is your mobility? walker 3) New concerns or problems? no 4) Have you had to go the ER for any reason? no 5) Any questions about your discharge diagnosis and instructions? Yes, pt concerned regarding UA abx treatment. Message sent to urology office [facility] 6) Do you have a follow up appointment made? Pt want to schedule PCP fu, all other apts reviewed 7) Do you currently have home health, any questions about home care? na 8) Have you filled all of your RX's? done 9) Any questions or concerns that we can help you with? Contact info shared w pt pt verbalized that she is feeling tired but ok. TCC inquired re: whether Patient has had any problems or questions since 07/31. pt indicated she was able to obtain all of her medications without incident. pt indicated she is taking all medications as prescribed. no symptoms related to dc meds. pt denied any current medical and psychosocial needs. Patient denied any unscheduled visits to the ER, hospital, or urgent care since discharge. pt denied any questions related to diet, medications, or condition at this time. TCC encouraged pt to call this telegraphic typewriter installer with questions, concerns, barriers to care, and/or additional resources if needed. pt verbalized understanding and agreement with plan. TCC will continue to provide post-discharge monitoring for 30 days post-discharge with target end date of program and intervention(s) set for 08/29. no follow-up needs identified or indicated at this time. Call Duration: 15 min Opal Burhc RN, MSN Transition Woodwork Teacher Office: [phone] 08/02/2023 documented in this encounter Plan of Treatment Not on file documented as of this encounter Visit Diagnoses Not on filedocumented in this encounter Care Teams Cotton Machine Operator Relationship Specialty Start Date End Date Justen Gale MD PCP - General 07/05/21 documented as of this encounter
--- OUTSIDE RECORDS SUMMARY | 2024-04-26 02:30 | XMS_ITS | Patient Health Summary ---
Author Organization [facility] Address [address] [place] [address] Care Team Providers Care Director [facility] Name Role Phone Justen Gale MD Primary Care Provider [phone] Note from [facility],non-owned Affiliates and Associated Physician Practices is amultiple site organization consisting of ambulatory clinics and hospital sitesin [place], [place], [place] and [place]. This disclosure is being madepursuant to the Care Everywhere program and may not contain all information available regarding this patient. Last updated 18.[facility] Allergies * Adhesive Sensitivity(Rash) -Medium Criticality * Amlodipine Base(Swelling) -Medium Criticality * Sulfamethoxazole W-Trimethoprim(Vomiting) * Ceftriaxone(Anaphylaxis,Shortness of Breath) -High Criticality * Cephalosporins(Anaphylaxis,Shortness of Breath) -High Criticality * Contrast-Iodinated Agents For Ct/Other(Rash) -Medium Criticality * Ketorolac(Itching) -Low Criticality * Latex(Rash) -Medium Criticality * Levofloxacin(Urticaria,Skin Reactions) -Medium Criticality * Lisinopril(Swelling) * Nitrofurantoin(Rash) -Medium Criticality * Piperacillin-Tazobactam In D5w(Rash) -Medium Criticality * Pregabalin(Other) -Low Criticality * Reslizumab(Unknown) * Skin Adhesives(Skin Reactions) * Trazodone(Anaphylaxis,Other) -High Criticality * Ceftriaxone Sodium In Dextrose(Anaphylaxis) -High Criticality,Inactive * Lorazepam(Other,Unknown) -Low Criticality,Inactive * Metoclopramide(Other) -Low Criticality,Inactive * Oxycodone(Nausea and/or Vomiting) -Low Criticality,Inactive Medications * Be aware that medications may not be up to date on this document. Alwaysverify current medications with the patient. * exemestane (AROMASIN) 25 MG tablet(Started 04/20/2017) Take 1 (one) tablet by mouth DAILY * rOPINIRole (REQUIP) 5 MG tablet(Started 06/09/2021) TAKE 1 TABLET BY MOUTH EVERY NIGHT * Lancets (ONETOUCH DELICA PLUS 33G EXTRA FINE LANCET)(Started 03/10/2021) USE FOUR TIMES DAILY * ONETOUCH ULTRA test strip(Started 02/01/2021) 4 times daily * insulin pen needle (B-D ULTRAFINE III SHORT PEN) 31G X 8 MM needle(Started 11/16/2021) 4 times daily * HumaLOG KwikPen 100 UNIT/ML pen(Started 02/25/2022) 26 (twenty six) Units 3 times daily before meals * Lantus SoloStar pen(Started 02/25/2022) 40 (forty) Units once * rivaroxaban (Xarelto) 20 MG tablet Take 1 (one) tablet by mouth daily with food Reasons: Blockage of Blood Vessel to Lung by a Particle, Blood Clot in a Deep Vein * hydrOXYzine HCl (Atarax) 25 MG tablet(Started 03/22/2023) Take 1 (one) tablet by mouth 3 times daily as needed for Itching * lidocaine (Lidoderm) 5 % patch(Started 04/20/2023) Apply 1 (one) patch to skin every 24 hours Apply patch to most painful area and remove after 12 hours. May reapply a new patch 12 hours later. * Multiple Vitamins-Minerals (Multivitamin Womens 50+ Adv) TABS Take 1 tablet by mouth once daily * polyethylene glycol 3350 (Miralax) 17 g packet(Started 06/17/2023) Take 17 (seventeen) g by mouth once daily * cyclobenzaprine (Flexeril) 5 MG tablet(Started 06/17/2023) Take 1 (one) tablet by mouth 3 times daily as needed (Muscle spasms) * methenamine hippurate (Hiprex) 1 GM tablet(Started 07/12/2023) Take 1 (one) tablet by mouth 2 times daily 2 refills by 07/11/2024 * Continuous Blood Gluc Sensor (FreeStyle Eileen 2 Sensor Systm) [facility] [place](Started 07/11/2023) APPLY 1 SENSOR AND WEAR FOR 14 DAYS TO CHECK BLOOD SUGAR * gabapentin (Neurontin) 300 MG capsule(Started 06/20/2023) Take 1 (one) capsule by mouth 3 times daily * naloxone HCl (Narcan) 4 MG/0.1ML nasal spray(Started 07/11/2023) * ondansetron, disintegrating, (Zofran ODT) 4 MG tablet(Started 06/28/2023) DISSOLVE 1 TABLET ON THE TONGUE EVERY 8 HOURS NEEDED FOR NAUSEA OR VOMITING * acetaminophen (Tylenol) 500 MG tablet(Started 08/01/2023) Take 2 (two) tablets by mouth 3 times daily Maximum allowable Acetaminophen amount = 4 Grams (4000 mg) / 24 hours. * oxyCODONE, immediate release, (Roxicodone) 10 MG tablet(Started 08/01/2023) TAKE ONE TABLET BY MOUTH EVERY 4 HOURS NEEDED * amoxicillin-clavulanate (Augmentin) 875-125 MG tablet(Started 08/01/2023) TAKE ONE TABLET BY MOUTH 2 TIMES A DAY FOR 7 DAYS * oxyBUTYnin CR 24hr (Ditropan XL) 15 MG tablet(Started 03/08/2024) Take 1 (one) tablet by mouth once daily 4 refills by 03/08/2025 Active Problems Problem Noted Date Diagnosed Date [...] 11/12/2017 Chronic anticoagulation 11/09/2017 Essential hypertension 10/23/2017 Type 2 diabetes mellitus without complication LUL (obstructive sleep apnea) 08/01/2017 Neuropathy 07/05/2017 Resolved Problems Problem Noted Date Diagnosed Date Resolved Date Rash 03/21/2023 04/18/2023 Immunizations * INFLUENZA VACCINE, TRIV. (AFLURIA, FLUZONE TRIVALENT; 6MO+) (IIV3)(Given 02/03/2020) * FLU VACCINE QUAD IIV4 SPLIT 0.25 ML IM(Given 02/06/2017) * FLU VACCINE TRI IIV3 SPLIT IM (FLUVIRIN)(Given 01/23/2016, 03/07/2014, 05/07/2013) * INFLUENZA(Given 01/17/2023) * INFLUENZA VACCINE, ADJUVANTED, QUADR. (FLUAD QUADRIVALENT; 65Y+) (AIIV4)(Given 01/17/2023) * INFLUENZA VACCINE, QUADR. (AFLURIA, FLUZONE QUADRIVALENT; 6MO+) (IIV4)(Given 02/11/2015) * INFLUENZA VACCINE, QUADR. (FLUZONE; FLULAVAL; FLUARIX; AFLURIA QUADRIVALENT; 6MO+), 0.5 ML (IIV4)(Given 01/03/2022, 05/04/2021, 01/18/2020, 02/25/2019, 01/24/2018, 02/14/2017) * TDAP, HISTORIC VACCINE(Given 02/23/2016) Social History Tobacco Use Types Packs/Day Years [...] you are drinking? Patient does not drink 4 Q3: How often do you have si x or more drinks on one occasion? Never 06/16/2023 Overall Financial Resource Strain (CARDIA) Answe r Date Recorded How hard is it for you to pa y for the very basics like food, housing, medical care, and heating? Somewhat hard 05/16/2023 [facility] [place] of Occupat ional Health - Occupational Stress [...] place to sleep or slept in a mcfp (including now)? No 05/16/2023 Sex and Gender [...] Mass Index 51.61 07/28/2023 5:54 PM CDT Medical Devices Implanted Type Area Returned Telephone Equipment Appraiser Device Identifier Shelf Expiration Date Model / Serial / Lot Lead Nrstm 60cm Penta 3mm Pdl 16 Chnl Implanted:Qt y: 1 on 09/16/2021 by Maxi Gregg MD at [facility] Right: Spine Thoracic [employer] [id number] / / Description:CAMILO Slnt Dura Duraseal Pg Trilysine Amine 5 Implanted:Qt y: 1 on 09/16/2021 by Maxi Gregg MD at [facility] Right: Spine Thoracic [employer] David [id number] / / Description:CAMILO Proclaim Plus 5 Implanted:Qt y: 1 on 02/16/2023 by Maxi Gregg MD at [facility] Left: Back Cardenas Spine [id number] 11/07/2024 [id number] / [id number] / Explanted Type Area Returned Telephone Equipment Appraiser Device Identifier Shelf Expiration Date Model / Serial / Lot Gntr Nrstm [id number] Proclaim Elt Implanted:Qty: 1 on 09/16/2021 by Maxi Gregg MD at [facility] Explanted:Qty: 1 on 10/30/2021 by Maxi Gregg MD at [facility] Right: Spine Thoracic [employer] [id number] / / Description:CAMILO Procedures * CULTURE URINE(Performed 08/01/2023) Performed for Urinary incontinence, unspecified type * GLUCOSE - POINT OF CARE(Performed 08/01/2023) * URINALYSIS REFLEX TO MICROSCOPIC NO CULTURE(Performed 08/01/2023) Performed for Urinary incontinence, unspecified type * GLUCOSE - POINT OF CARE(Performed 08/01/2023) * GLUCOSE - POINT OF CARE(Performed 07/31/2023) * GLUCOSE - POINT OF CARE(Performed 07/31/2023) * GLUCOSE - POINT OF CARE(Performed 07/31/2023) * GLUCOSE - POINT OF CARE(Performed 07/31/2023) * GLUCOSE - POINT OF CARE(Performed 07/30/2023) * GLUCOSE - POINT OF CARE(Performed 07/30/2023) * GLUCOSE - POINT OF CARE(Performed 07/30/2023) * GLUCOSE - POINT OF CARE(Performed 07/30/2023) * RENAL FUNCTION PANEL(Performed 07/30/2023) * MAGNESIUM BLOOD(Performed 07/30/2023) * CBC W/O DIFFERENTIAL(Performed 07/30/2023) * GLUCOSE - POINT OF CARE(Performed 07/29/2023) * GLUCOSE - POINT OF CARE(Performed 07/29/2023) * GLUCOSE - POINT OF CARE(Performed 07/29/2023) * GLUCOSE - POINT OF CARE(Performed 07/29/2023) * GLUCOSE - POINT OF CARE(Performed 07/28/2023) * GLUCOSE - POINT OF CARE(Performed 07/28/2023) * GLUCOSE - POINT OF CARE(Performed 07/28/2023) * GLUCOSE - POINT OF CARE(Performed 07/28/2023) * GLUCOSE - POINT OF CARE(Performed 07/27/2023) * GLUCOSE - POINT OF CARE(Performed 07/27/2023) * GLUCOSE - POINT OF CARE(Performed 07/27/2023) * VAS LEFT VENOUS DUPLEX LE(Performed 07/27/2023) Performed for Edema, unspecified type * GLUCOSE - POINT OF CARE(Performed 07/27/2023) * URINE MICROSCOPIC ONLY REFLEX TO CULTURE(Performed 07/27/2023) * URINALYSIS REFLEX MICROSCOPIC REFLEX CULTURE(Performed 07/27/2023) * CULTURE URINE(Performed 07/27/2023) * TYPE + SCREEN PANEL(Performed 07/26/2023) * PT-INR [facility](Performed 07/26/2023) * MAGNESIUM BLOOD(Performed 07/26/2023) * COMPREHENSIVE METABOLIC PANEL(Performed 07/26/2023) * CBC W AUTO DIFFERENTIAL(Performed 07/26/2023) * CARDIAC EKG ORDER(Performed 06/19/2023) * GLUCOSE - POINT OF CARE(Performed 06/17/2023) * GLUCOSE - POINT OF CARE(Performed 06/17/2023) * GLUCOSE - POINT OF CARE(Performed 06/16/2023) * GLUCOSE - POINT OF CARE(Performed 06/16/2023) * TROPONIN-I HIGH SENSITIVE REFLEX 1HOUR(Performed 06/16/2023) * B-TYPE NATRIURETIC PEPTIDE(Performed 06/16/2023) * TROPONIN-I HIGH SENSITIVE BASELINE + 1HR(Performed 06/16/2023) * XR CHEST 1VW PORTABLE(Performed 06/16/2023) Performed for Shortness of breath * COMPREHENSIVE METABOLIC PANEL(Performed 06/16/2023) * CBC W AUTO DIFFERENTIAL(Performed 06/16/2023) * EKG 12-LEAD(Performed 06/16/2023) Performed for Shortness of breath * EMG WITH NERVE CONDUCTION STUDY(Performed 05/31/2023) Performed for Left leg weakness * CT LUMBAR SPINE W CONTRAST(Performed 05/29/2023) Performed for Lumbar radiculopathy, Weakness * TROPONIN-I HIGH SENSITIVE REFLEX 1HOUR(Performed 05/28/2023) * XR LUMBAR SPINE 2 OR 3VW(Performed 05/28/2023) Performed for Acute left-sided low back pain with bilateral sciatica * XR THORACIC SPINE 2VW(Performed 05/28/2023) Performed for Acute left-sided low back pain with bilateral sciatica * XR CHEST 1VW PORTABLE(Performed 05/28/2023) Performed for Dizziness * EKG 12-LEAD(Performed 05/28/2023) Performed for Dizziness * TROPONIN-I HIGH SENSITIVE BASELINE + 1HR(Performed 05/28/2023) * COMPREHENSIVE METABOLIC PANEL(Performed 05/28/2023) * CBC W AUTO DIFFERENTIAL(Performed 05/28/2023) * GLUCOSE - POINT OF CARE(Performed 05/20/2023) * GLUCOSE - POINT OF CARE(Performed 05/20/2023) * GLUCOSE - POINT OF CARE(Performed 05/19/2023) * GLUCOSE - POINT OF CARE(Performed 05/19/2023) * GLUCOSE - POINT OF CARE(Performed 05/19/2023) * GLUCOSE - POINT OF CARE(Performed 05/18/2023) * GLUCOSE - POINT OF CARE(Performed 05/18/2023) * GLUCOSE - POINT OF CARE(Performed 05/18/2023) * GLUCOSE - POINT OF CARE(Performed 05/18/2023) * GLUCOSE - POINT OF CARE(Performed 05/17/2023) * GLUCOSE - POINT OF CARE(Performed 05/17/2023) * GLUCOSE - POINT OF CARE(Performed 05/17/2023) * GLUCOSE - POINT OF CARE(Performed 05/17/2023) * GLUCOSE - POINT OF CARE(Performed 05/16/2023) * GLUCOSE - POINT OF CARE(Performed 05/16/2023) * GLUCOSE - POINT OF CARE(Performed 05/16/2023) * BASIC METABOLIC PANEL (CALCIUM TOTAL)(Performed 05/16/2023) Performed for Chronic left-sided low back pain with left-sided sciatica * CBC W AUTO DIFFERENTIAL(Performed 05/15/2023) * COMPREHENSIVE METABOLIC PANEL(Performed 05/15/2023) * GLUCOSE - POINT OF CARE(Performed 04/20/2023) * GLUCOSE - POINT OF CARE(Performed 04/20/2023) * GLUCOSE - POINT OF CARE(Performed 04/19/2023) * GLUCOSE - POINT OF CARE(Performed 04/19/2023) * URINE MICROSCOPIC ONLY REFLEX TO CULTURE(Performed 04/19/2023) * URINALYSIS REFLEX MICROSCOPIC REFLEX CULTURE(Performed 04/19/2023) * CULTURE URINE(Performed 04/19/2023) * GLUCOSE - POINT OF CARE(Performed 04/19/2023) * GLUCOSE - POINT OF CARE(Performed 04/19/2023) * CBC W/O DIFFERENTIAL(Performed 04/19/2023) Performed for Chronic bilateral low back pain, unspecified whether sciatica present * COMPREHENSIVE METABOLIC PANEL(Performed 04/19/2023) Performed for Chronic bilateral low back pain, unspecified whether sciatica present * GLUCOSE - POINT OF CARE(Performed 04/18/2023) * GLUCOSE - POINT OF CARE(Performed 04/18/2023) * GLUCOSE - POINT OF CARE(Performed 04/18/2023) * PT EVAL AND TREAT(Performed 04/18/2023) * OT EVAL AND TREAT(Performed 04/18/2023) * ERYTHROCYTE SEDIMENTATION RATE(Performed 04/17/2023) * C-REACTIVE PROTEIN(Performed 04/17/2023) * COMPREHENSIVE METABOLIC PANEL(Performed 04/17/2023) * CBC W AUTO DIFFERENTIAL(Performed 04/17/2023) * CARDIAC EKG ORDER(Performed 03/27/2023) * URINE MICROSCOPIC ONLY REFLEX TO CULTURE(Performed 03/25/2023) * URINALYSIS REFLEX MICROSCOPIC REFLEX CULTURE(Performed 03/25/2023) * GLUCOSE - POINT OF CARE(Performed 03/25/2023) * COMPREHENSIVE METABOLIC PANEL(Performed 03/24/2023) * CBC W AUTO DIFFERENTIAL(Performed 03/24/2023) * EKG 12-LEAD(Performed 03/24/2023) Performed for SOB (shortness of breath) * XR CHEST 1VW PORTABLE(Performed 03/24/2023) Performed for SOB (shortness of breath) * GLUCOSE - POINT OF CARE(Performed 03/23/2023) * GLUCOSE - POINT OF CARE(Performed 03/23/2023) * CT LUMBAR SPINE W CONTRAST(Performed 03/23/2023) Performed for S/P insertion of spinal cord stimulator * GLUCOSE - POINT OF CARE(Performed 03/23/2023) * GLUCOSE - POINT OF CARE(Performed 03/22/2023) * GLUCOSE - POINT OF CARE(Performed 03/22/2023) * GLUCOSE - POINT OF CARE(Performed 03/22/2023) * MAGNESIUM BLOOD(Performed 03/22/2023) Performed for Acute cystitis without hematuria * RENAL FUNCTION PANEL(Performed 03/22/2023) Performed for Acute cystitis without hematuria * CBC W AUTO DIFFERENTIAL(Performed 03/22/2023) Performed for Acute cystitis without hematuria * GLUCOSE - POINT OF CARE(Performed 03/22/2023) * GLUCOSE - POINT OF CARE(Performed 03/21/2023) * GLUCOSE - POINT OF CARE(Performed 03/21/2023) * CARDIAC EKG ORDER(Performed 03/21/2023) * OT EVAL AND TREAT(Performed 03/21/2023) * GLUCOSE - POINT OF CARE(Performed 03/21/2023) * GLUCOSE - POINT OF CARE(Performed 03/21/2023) * GLUCOSE - POINT OF CARE(Performed 03/20/2023) * GLUCOSE - POINT OF CARE(Performed 03/20/2023) * GLUCOSE - POINT OF CARE(Performed 03/20/2023) * GLUCOSE - POINT OF CARE(Performed 03/20/2023) * CBC W/O DIFFERENTIAL(Performed 03/20/2023) Performed for Chronic left-sided low back pain, unspecified whether sciatica present * PHOSPHORUS BLOOD(Performed 03/20/2023) Performed for Chronic left-sided low back pain, unspecified whether sciatica present * MAGNESIUM BLOOD(Performed 03/20/2023) Performed for Chronic left-sided low back pain, unspecified whether sciatica present * COMPREHENSIVE METABOLIC PANEL(Performed 03/20/2023) Performed for Chronic left-sided low back pain, unspecified whether sciatica present * TROPONIN-I HIGH SENSITIVE REFLEX 1HOUR(Performed 03/19/2023) * EKG 12-LEAD(Performed 03/19/2023) Performed for Weakness * URINE MICROSCOPIC ONLY REFLEX TO CULTURE(Performed 03/19/2023) * TROPONIN-I HIGH SENSITIVE BASELINE + 1HR(Performed 03/19/2023) * URINALYSIS REFLEX MICROSCOPIC REFLEX CULTURE(Performed 03/19/2023) * C-REACTIVE PROTEIN(Performed 03/19/2023) * ERYTHROCYTE SEDIMENTATION RATE(Performed 03/19/2023) * COMPREHENSIVE METABOLIC PANEL(Performed 03/19/2023) * CBC W AUTO DIFFERENTIAL(Performed 03/19/2023) * CULTURE URINE(Performed 03/19/2023) * SARS-COV-2 (COVID-19) RAPID(Performed 03/19/2023) * GLUCOSE - POINT OF CARE(Performed 02/26/2023) * GLUCOSE - POINT OF CARE(Performed 02/26/2023) * GLUCOSE - POINT OF CARE(Performed 02/25/2023) * GLUCOSE - POINT OF CARE(Performed 02/25/2023) * GLUCOSE - POINT OF CARE(Performed 02/25/2023) * GLUCOSE - POINT OF CARE(Performed 02/25/2023) * GLUCOSE - POINT OF CARE(Performed 02/24/2023) * GLUCOSE - POINT OF CARE(Performed 02/24/2023) * GLUCOSE - POINT OF CARE(Performed 02/24/2023) * PT EVAL AND TREAT(Performed 02/24/2023) * OT EVAL AND TREAT(Performed 02/24/2023) * GLUCOSE - POINT OF CARE(Performed 02/24/2023) * RENAL FUNCTION PANEL(Performed 02/24/2023) * CBC W/O DIFFERENTIAL(Performed 02/24/2023) * GLUCOSE - POINT OF CARE(Performed 02/23/2023) * GLUCOSE - POINT OF CARE(Performed 02/23/2023) * CARDIAC EKG ORDER(Performed 02/23/2023) * GLUCOSE - POINT OF CARE(Performed 02/23/2023) * GLUCOSE - POINT OF CARE(Performed 02/23/2023) * GLUCOSE - POINT OF CARE(Performed 02/23/2023) * GLUCOSE - POINT OF CARE(Performed 02/22/2023) * GLUCOSE - POINT OF CARE(Performed 02/22/2023) * C-REACTIVE PROTEIN(Performed 02/22/2023) * ERYTHROCYTE SEDIMENTATION RATE(Performed 02/22/2023) * GLUCOSE - POINT OF CARE(Performed 02/22/2023) * CT LUMBAR SPINE W CONTRAST(Performed 02/22/2023) Performed for Acute post-operative pain * VANCOMYCIN LEVEL TROUGH(Performed 02/22/2023) * VANCOMYCIN LEVEL PEAK(Performed 02/22/2023) * URINE MICROSCOPIC ONLY REFLEX TO CULTURE(Performed 02/22/2023) * URINALYSIS REFLEX MICROSCOPIC REFLEX CULTURE(Performed 02/22/2023) * CULTURE URINE(Performed 02/22/2023) * CT ABDOMEN PELVIS W CONTRAST(Performed 02/22/2023) Performed for Cellulitis, wound, post-operative * CULTURE BLOOD(Performed 02/21/2023) * CULTURE BLOOD(Performed 02/21/2023) * TROPONIN-I HIGH SENSITIVE REFLEX 1HOUR(Performed 02/21/2023) * EKG 12-LEAD(Performed 02/21/2023) Performed for History of wound infection * TROPONIN-I HIGH SENSITIVE BASELINE + 1HR(Performed 02/21/2023) * PT-INR [facility](Performed 02/21/2023) * LACTIC ACID BLOOD REFLEX TO REPEAT(Performed 02/21/2023) * COMPREHENSIVE METABOLIC PANEL(Performed 02/21/2023) * CBC W AUTO DIFFERENTIAL(Performed 02/21/2023) * HEPATITIS C AB SCREEN RFLX NAAT QUANT(Performed 02/21/2023) * CARDIAC RHYTHM STRIP ORDER(Performed 02/20/2023) * CARDIAC EKG ORDER(Performed 02/20/2023) * CT CHEST PE W ABD PELVIS W CONT(Performed 02/18/2023) Performed for Post-op pain, Chest pain, unspecified type, Back pain, unspecified back location, unspecified back pain laterality, unspecified chronicity * TROPONIN-I HIGH SENSITIVE REFLEX 1HOUR(Performed 02/17/2023) * XR CHEST 1VW PORTABLE(Performed 02/17/2023) Performed for Post-op pain * PT-INR [facility](Performed 02/17/2023) * COMPREHENSIVE METABOLIC PANEL(Performed 02/17/2023) * CBC W AUTO DIFFERENTIAL(Performed 02/17/2023) * TROPONIN-I HIGH SENSITIVE BASELINE + 1HR(Performed 02/17/2023) * EKG 12-LEAD(Performed 02/17/2023) Performed for Post-op pain * GLUCOSE - POINT OF CARE(Performed 02/16/2023) * ENDOTRACHEAL TUBE NOTE(Performed 02/16/2023) * WA INS/RPLCMT SPI NPGR POCKET(Performed 02/16/2023) Performed for Diagnosis unknown * PT-INR(Performed 02/16/2023) Performed for Preop examination * GLUCOSE - POINT OF CARE(Performed 02/16/2023) * URINE MICROSCOPIC ONLY REFLEX TO CULTURE(Performed 02/06/2023) Performed for Pre-op testing * URINALYSIS REFLEX MICROSCOPIC REFLEX CULTURE(Performed 02/06/2023) Performed for Pre-op testing * CBC W AUTO DIFFERENTIAL(Performed 02/06/2023) Performed for Pre-op testing * BASIC METABOLIC PANEL (CALCIUM TOTAL)(Performed 02/06/2023) Performed for Pre-op testing * PTT(Performed 02/06/2023) Performed for Pre-op testing * PT-INR(Performed 02/06/2023) Performed for Pre-op testing * XR LUMBAR SPINE 2 OR 3VW(Performed 02/06/2023) Performed for S/P insertion of spinal cord stimulator * GLUCOSE - POINT OF CARE(Performed 12/26/2022) * GLUCOSE - POINT OF CARE(Performed 12/26/2022) * CT ANGIO BRAIN AND NECK(Performed 12/26/2022) Performed for Acute intractable headache, unspecified headache type, Right hand weakness * GLUCOSE - POINT OF CARE(Performed 12/26/2022) * PHOSPHORUS BLOOD(Performed 12/26/2022) * MAGNESIUM BLOOD(Performed 12/26/2022) * CBC W/O DIFFERENTIAL(Performed 12/26/2022) * BASIC METABOLIC PANEL (CALCIUM TOTAL)(Performed 12/26/2022) * GLUCOSE - POINT OF CARE(Performed 12/25/2022) * GLUCOSE - POINT OF CARE(Performed 12/25/2022) * GLUCOSE - POINT OF CARE(Performed 12/25/2022) * GLUCOSE - POINT OF CARE(Performed 12/25/2022) * HEMOGLOBIN A1C(Performed 12/25/2022) * PHOSPHORUS BLOOD(Performed 12/25/2022) * MAGNESIUM BLOOD(Performed 12/25/2022) * CBC W/O DIFFERENTIAL(Performed 12/25/2022) * BASIC METABOLIC PANEL (CALCIUM TOTAL)(Performed 12/25/2022) * GLUCOSE - POINT OF CARE(Performed 12/24/2022) * GLUCOSE - POINT OF CARE(Performed 12/24/2022) * GLUCOSE - POINT OF CARE(Performed 12/24/2022) * GLUCOSE - POINT OF CARE(Performed 12/24/2022) * PHOSPHORUS BLOOD(Performed 12/24/2022) * MAGNESIUM BLOOD(Performed 12/24/2022) * CBC W/O DIFFERENTIAL(Performed 12/24/2022) * COMPREHENSIVE METABOLIC PANEL(Performed 12/24/2022) * WA CYSTOURETHROSCOPY(Performed 06/08/2022) Performed for Microhematuria * URINALYSIS AUTO - POINT OF CARE (AMB) [facility](Performed 06/08/2022) Performed for Urinary tract infection with hematuria, site unspecified * WA MSR PVR U&/BLADD CAPCTY US NON(Performed 04/27/2022) Performed for Urinary tract infection with hematuria, site unspecified * URINALYSIS AUTO - POINT OF CARE (AMB) [facility](Performed 04/27/2022) Performed for Urinary tract infection with hematuria, site unspecified * URINALYSIS AUTO - POINT OF CARE (AMB) [facility](Performed 04/04/2022) Performed for Urinary tract infection with hematuria, site unspecified * CT LUMBAR SPINE W CONTRAST(Performed 12/16/2021) Performed for Acute hematogenous osteomyelitis, unspecified site (HCC) * PROC ENDOSCOPY-LARYNX(Performed 12/14/2021) Performed for Throat pain, Right ear impacted cerumen, Dizziness * LAB RESULTS ORDER(Performed 12/07/2021) * ERYTHROCYTE SEDIMENTATION RATE(Performed 12/06/2021) Performed for Acute hematogenous osteomyelitis, unspecified site (HCC) * URINALYSIS W/MICROSCOPIC REFLEX TO CULTURE(Performed 12/06/2021) Performed for Acute hematogenous osteomyelitis, unspecified site (HCC) * CULTURE BLOOD(Performed 12/02/2021) * XR HUMERUS RIGHT 2VW OR MORE(Performed 12/02/2021) Performed for Encounter for assessment of peripherally inserted central catheter (PICC) * CULTURE BLOOD(Performed 12/02/2021) * C-REACTIVE PROTEIN(Performed 12/02/2021) * LIPASE BLOOD(Performed 12/02/2021) * COMPREHENSIVE METABOLIC PANEL(Performed 12/02/2021) * CBC W AUTO DIFFERENTIAL(Performed 12/02/2021) * URINALYSIS REFLEX TO MICROSCOPIC NO CULTURE(Performed 12/02/2021) * GLUCOSE - POINT OF CARE(Performed 11/16/2021) * URINALYSIS REFLEX TO MICROSCOPIC NO CULTURE(Performed 11/16/2021) * GLUCOSE - POINT OF CARE(Performed 11/16/2021) * CBC W/O DIFFERENTIAL(Performed 11/16/2021) * COMPREHENSIVE METABOLIC PANEL(Performed 11/16/2021) * C-REACTIVE PROTEIN(Performed 11/16/2021) * ERYTHROCYTE SEDIMENTATION RATE(Performed 11/16/2021) * GLUCOSE - POINT OF CARE(Performed 11/16/2021) * GLUCOSE - POINT OF CARE(Performed 11/15/2021) * GLUCOSE - POINT OF CARE(Performed 11/15/2021) * GLUCOSE - POINT OF CARE(Performed 11/15/2021) * GLUCOSE - POINT OF CARE(Performed 11/15/2021) * GLUCOSE - POINT OF CARE(Performed 11/14/2021) * GLUCOSE - POINT OF CARE(Performed 11/14/2021) * GLUCOSE - POINT OF CARE(Performed 11/14/2021) * GLUCOSE - POINT OF CARE(Performed 11/14/2021) * GLUCOSE - POINT OF CARE(Performed 11/14/2021) * GLUCOSE - POINT OF CARE(Performed 11/13/2021) * GLUCOSE - POINT OF CARE(Performed 11/13/2021) * GLUCOSE - POINT OF CARE(Performed 11/13/2021) * GLUCOSE - POINT OF CARE(Performed 11/13/2021) * BASIC METABOLIC PANEL (CALCIUM TOTAL)(Performed 11/13/2021) * PTT [facility](Performed 11/13/2021) * PT-INR [facility](Performed 11/13/2021) * CBC W AUTO DIFFERENTIAL(Performed 11/13/2021) * PTT [facility](Performed 11/12/2021) * GLUCOSE - POINT OF CARE(Performed 11/12/2021) * ECHO COMPLETE(Performed 11/12/2021) Performed for Heart murmur * GLUCOSE - POINT OF CARE(Performed 11/12/2021) * PTT [facility](Performed 11/12/2021) * PROCALCITONIN LEVEL(Performed 11/12/2021) * VAS RIGHT VENOUS DUPLEX UE(Performed 11/12/2021) Performed for Arm pain, diffuse, right * GLUCOSE - POINT OF CARE(Performed 11/12/2021) * PTT [facility](Performed 11/12/2021) * CBC W AUTO DIFFERENTIAL(Performed 11/12/2021) * PT-INR [facility](Performed 11/12/2021) * CT ANGIO CHEST PULM EMBOLISM(Performed 11/12/2021) Performed for Chest pain, unspecified type, SOB (shortness of breath) * CULTURE BLOOD(Performed 11/11/2021) * B-TYPE NATRIURETIC PEPTIDE(Performed 11/11/2021) * TROPONIN I(Performed 11/11/2021) * COMPREHENSIVE METABOLIC PANEL(Performed 11/11/2021) * CBC W AUTO DIFFERENTIAL(Performed 11/11/2021) * CULTURE BLOOD(Performed 11/11/2021) * XR CHEST 2VW(Performed 11/11/2021) Performed for Chest pain, unspecified type, SOB (shortness of breath) * EKG 12-LEAD(Performed 11/11/2021) Performed for Chest pain, unspecified type, SOB (shortness of breath) * LAB RESULTS ORDER(Performed 11/10/2021) * GLUCOSE - POINT OF CARE(Performed 11/06/2021) * GLUCOSE - POINT OF CARE(Performed 11/06/2021) * GLUCOSE - POINT OF CARE(Performed 11/06/2021) * GLUCOSE - POINT OF CARE(Performed 11/05/2021) * GLUCOSE - POINT OF CARE(Performed 11/05/2021) * VAS BILATERAL VENOUS DUPLEX LE(Performed 11/05/2021) Performed for S/P insertion of spinal cord stimulator, Chronic anticoagulation * IR PICC LINE INSERT(Performed 11/05/2021) Performed for S/P insertion of spinal cord stimulator * TROPONIN I(Performed 11/05/2021) * D-DIMER(Performed 11/05/2021) * EKG 12-LEAD(Performed 11/05/2021) Performed for S/P insertion of spinal cord stimulator, Acute post-operative pain * GLUCOSE - POINT OF CARE(Performed 11/05/2021) * GLUCOSE - POINT OF CARE(Performed 11/05/2021) * GLUCOSE - POINT OF CARE(Performed 11/05/2021) * GLUCOSE - POINT OF CARE(Performed 11/04/2021) * GLUCOSE - POINT OF CARE(Performed 11/04/2021) * GLUCOSE - POINT OF CARE(Performed 11/04/2021) * GLUCOSE - POINT OF CARE(Performed 11/04/2021) * GLUCOSE - POINT OF CARE(Performed 11/04/2021) * GLUCOSE - POINT OF CARE(Performed 11/03/2021) * GLUCOSE - POINT OF CARE(Performed 11/03/2021) * GLUCOSE - POINT OF CARE(Performed 11/03/2021) * GLUCOSE - POINT OF CARE(Performed 11/03/2021) * GLUCOSE - POINT OF CARE(Performed 11/03/2021) * GLUCOSE - POINT OF CARE(Performed 11/02/2021) * GLUCOSE - POINT OF CARE(Performed 11/02/2021) * GLUCOSE - POINT OF CARE(Performed 11/02/2021) * GLUCOSE - POINT OF CARE(Performed 11/02/2021) * GLUCOSE - POINT OF CARE(Performed 11/02/2021) * GLUCOSE - POINT OF CARE(Performed 11/01/2021) * GLUCOSE - POINT OF CARE(Performed 11/01/2021) * CARDIAC EKG ORDER(Performed 11/01/2021) * GLUCOSE - POINT OF CARE(Performed 11/01/2021) * GLUCOSE - POINT OF CARE(Performed 11/01/2021) * OT EVAL AND TREAT(Performed 11/01/2021) * GLUCOSE - POINT OF CARE(Performed 11/01/2021) * C-REACTIVE PROTEIN(Performed 11/01/2021) * ERYTHROCYTE SEDIMENTATION RATE(Performed 11/01/2021) * VANCOMYCIN LEVEL TROUGH(Performed 10/31/2021) * GLUCOSE - POINT OF CARE(Performed 10/31/2021) * GLUCOSE - POINT OF CARE(Performed 10/31/2021) * GLUCOSE - POINT OF CARE(Performed 10/31/2021) * PTT SLH(Performed 10/31/2021) * PT-INR SLH(Performed 10/31/2021) * COMPREHENSIVE METABOLIC PANEL(Performed 10/31/2021) * CBC W/O DIFFERENTIAL(Performed 10/31/2021) * HEMOGLOBIN A1C(Performed 10/31/2021) * OT EVAL AND TREAT(Performed 10/31/2021) * GLUCOSE - POINT OF CARE(Performed 10/31/2021) * COMPREHENSIVE METABOLIC PANEL(Performed 10/30/2021) * CBC W AUTO DIFFERENTIAL(Performed 10/30/2021) * PT-INR SLH(Performed 10/30/2021) * PTT SLH(Performed 10/30/2021) * XR CHEST 1VW PORTABLE(Performed 10/30/2021) Performed for Preoperative examination * GLUCOSE - POINT OF CARE(Performed 10/30/2021) * CULTURE FUNGUS OTHER+FUNGUS SMEAR(Performed 10/30/2021) Performed for S/P insertion of spinal cord stimulator * CULTURE ANAEROBE(Performed 10/30/2021) Performed for S/P insertion of spinal cord stimulator * CULTURE FLUID+GRAM STAIN(Performed 10/30/2021) Performed for S/P insertion of spinal cord stimulator * REMOVAL HARDWARE SPINAL (POSTERIOR)(Performed 10/30/2021) Performed for Infection * ENDOTRACHEAL TUBE NOTE(Performed 10/30/2021) * GLUCOSE - POINT OF CARE(Performed 10/30/2021) * TYPE + SCREEN PANEL(Performed 10/30/2021) * PT-INR SLH(Performed 10/30/2021) * PTT [facility](Performed 10/30/2021) * URINALYSIS REFLEX TO MICROSCOPIC NO CULTURE(Performed 10/30/2021) * EKG 12-LEAD(Performed 10/30/2021) Performed for Preoperative examination * BLOOD TYPE VERIFICATION(Performed 10/30/2021) * URINALYSIS REFLEX TO MICROSCOPIC NO CULTURE(Performed 10/30/2021) * CULTURE URINE(Performed 10/30/2021) * CULTURE BLOOD(Performed 10/30/2021) * CULTURE BLOOD(Performed 10/30/2021) * C-REACTIVE PROTEIN(Performed 10/30/2021) * ERYTHROCYTE SEDIMENTATION RATE(Performed 10/30/2021) * COMPREHENSIVE METABOLIC PANEL(Performed 10/30/2021) * CBC W AUTO DIFFERENTIAL(Performed 10/30/2021) * CULTURE BLOOD(Performed 10/06/2021) * PT-INR SLH(Performed 10/06/2021) * COMPREHENSIVE METABOLIC PANEL(Performed 10/06/2021) * CBC W AUTO DIFFERENTIAL(Performed 10/06/2021) * CULTURE BLOOD(Performed 10/06/2021) * C-REACTIVE PROTEIN(Performed 09/23/2021) * ERYTHROCYTE SEDIMENTATION RATE(Performed 09/23/2021) * COMPREHENSIVE METABOLIC PANEL(Performed 09/23/2021) * CBC W AUTO DIFFERENTIAL(Performed 09/23/2021) * CARDIAC RHYTHM STRIP ORDER(Performed 09/22/2021) * GLUCOSE - POINT OF CARE(Performed 09/16/2021) * FL GIANFRANCO SURGERY(Performed 09/16/2021) Performed for Pain * ENDOTRACHEAL TUBE NOTE(Performed 09/16/2021) * GLUCOSE - POINT OF CARE(Performed 09/16/2021) * LAMINECTOMY THORACIC(Performed 09/16/2021) Performed for Diagnosis unknown * CT ABDOMEN PELVIS W CONTRAST(Performed 04/20/2017) * CBC W AUTO DIFFERENTIAL(Performed 04/20/2017) * COMPREHENSIVE METABOLIC PANEL(Performed 04/20/2017) * LIPASE BLOOD(Performed 04/20/2017) * CBC W AUTO DIFFERENTIAL(Performed 04/20/2017) * URINALYSIS W/MICROSCOPIC NO CULTURE(Performed 04/20/2017) * HONEY BLOOD SCREEN(Performed 01/27/2012) * IMMUNOFIXATION BLOOD(Performed 01/27/2012) * LAMBDA LIGHT CHAINS FREE(Performed 01/27/2012) * KAPPA/LAMBDA LITE CHAIN FREE PANEL(Performed 01/27/2012) * RETIC COUNT(Performed 01/27/2012) * CBC W AUTO DIFFERENTIAL(Performed 01/27/2012) * FERRITIN(Performed 01/27/2012) * TRANSFERRIN(Performed 01/27/2012) * PROTEIN ELECTROPHORESIS WO INTERP BLOOD(Performed 01/27/2012) * IRON BLOOD(Performed 01/27/2012) * C-REACTIVE PROTEIN(Performed 01/27/2012) * ERYTHROCYTE SEDIMENTATION RATE(Performed 01/27/2012) * URINALYSIS W/MICROSCOPIC NO CULTURE(Performed 01/27/2012) * LDH BLOOD(Performed 01/27/2012) * COMPREHENSIVE METABOLIC PANEL(Performed 01/27/2012) * CK BLOOD(Performed 01/27/2012) * TSH(Performed 01/27/2012) * T4 FREE(Performed 01/27/2012) * T3 TOTAL(Performed 01/27/2012) * T3 FREE(Performed 01/27/2012) * MRI LUMBAR SPINE WO CONTRAST(Performed 12/16/2011) * LAB HISTORICAL RESULTS-ONBASE(Performed 12/08/2011) * LAB HISTORICAL RESULTS-ONBASE(Performed 12/08/2011) Results * (ABNORMAL) CULTURE URINE (08/01/2023 11:42 AM CDT) Only the most recent of6 resultswithin the time period is included. Culture Urine >100,000 CFU/mL Escherichia coli(A) [place] 08/03/2023 12:49 AM CDT [facility] MICROBIOLOGY Urine URINE SPECIMEN OBTAINED BY CLEAN [...] - MICROBIOLOGY O RDERABLES Performing Organization Address City/[facility]/ZIP Co de Phone Number [facility] [address] [place] [address], [facility] [phone] * (ABNORMAL) GLUCOSE - POINT OF CARE (08/01/2023 11:36 AM CDT) Only the most recent of153 resultswithin the time period is included. Pathologist [facility] Glucose WB/POC 164(H) 70 - 115 mg/dL 08/01/2023 11:40 AM CDT [facility] Specimen Type Cap Fingerstick 2023 11:40 AM CDT [facility] Blood BLOOD SPECIMEN / Unknown 08/01/2023 11:36 AM CDT 08/01/2023 11:40 AM CDT Watson Bearden MD LAB - POINT OF CARE ORDERABLES [facility] [address] [place] [address], [place] [phone] * (ABNORMAL) URINALYSIS REFLEX TO MICROSCOPIC NO CULTURE (08/01/2023 9:31 AM CDT) Only the most recent of5 resultswithin the time period is included. Color UA Yellow Straw, Yellow 08/01/2023 10:03 AM [facility] Clarity UA Slt Cloudy(A) Clear 08/01/2023 10:03 AM [facility] Specific [place] UA 1.015 1.005 - 1.030 08/01/2023 10:03 AM [facility] pH UA 5.0 5.0 - 8.0 pH 08/01/2023 10:03 AM [facility] Protein UA Negative Negative 08/01/2023 10:03 AM [facility] Glucose UA Negative Negative 08/01/2023 10:03 AM [facility] Ketone UA Negative Negative 08/01/2023 10:03 AM [facility] Bilirubin UA Negative Negative 08/01/2023 10:03 AM [facility] Blood UA 1+(A) Negative 08/01/2023 10:03 AM [facility] Nitrite UA Positive(A) Negative 08/01/2023 10:03 AM [facility] Leukocyte Esterase 3+(A) Negative 08/01/2023 10:03 AM [facility] Urobilinogen UA Negative Negative mg/dL 08/01/2023 10:03 AM [facility] RBC UA 11-20(A) None Seen, 0-2, 3-5 /HPF 08/01/2023 10:03 AM [facility] WBC UA 51-100(A) None Seen, 0-5 /HPF 08/01/2023 10:03 AM [facility] WBC Clumps Occasional( A) None /HPF 08/01/2023 10:03 AM [facility] Bacteria UA 3+(A) None /HPF 08/01/2023 10:03 AM [facility] Squamous Epithelial Cells UA 0-2 None Seen, 0-2, 3-5 /HPF 08/01/2023 10:03 AM [facility] Mucus UA 1+ /LPF 08/01/2023 10:03 AM [facility] Urine URINE SPECIMEN OBTAINED BY CLEAN CATCH PROCEDURE / Unknown Collection / Unknown 08/01/2023 9:31 AM T 08/01/2023 9:51 AM [facility] - 08/01/2023 10:03 AM CDT Watson Bearden MD LAB - URINALYSIS ORD ERABLES [facility] [address] [place] [address] [phone] * (ABNORMAL) CBC W/O DIFFERENTIAL (07/30/2023 1:28 AM CDT) Only the most recent of9 resultswithin the time period is included. WBC 11.6(H) 4.0 - 10.7 x10E9/L 07/30/2023 2:10 AM [facility] RBC Count 4.20 3.90 - 5.20 x10E12/L 07/30/2023 2:10 AM [facility] Hemoglobin 12.0 11.9 - 15.8 g/dL 07/30/2023 2:10 AM [facility] Hematocrit 37.1 34.8 - 46.1 % 07/30/2023 2:10 AM [facility] MCV 88.3 80.0 - 98.0 fL 07/30/2023 2:10 AM [facility] MCH 28.6 26.7 - 33.6 pg 07/30/2023 2:10 AM [facility] MCHC 32.3 31.7 - 36.3 g/dL 07/30/2023 2:10 AM [facility] RDW-CV 13.4 11.3 - 14.8 % 07/30/2023 2:10 AM [facility] Platelet Count 265 150 - 420 x10E9/L 07/30/2023 2:10 AM [facility] MPV 10.2 7.8 - 11.4 fL 07/30/2023 2:10 AM [facility] Blood BLOOD SPECIMEN / Unknown Lab Venipuncture / Unknown 07/30/2023 1:28 AM CDT 07/30/2023 2:04 AM CDT Brian Bravo MD LAB - HEMATOLOGY ORD ERABLES [facility] [address] [place] [address], [facility] [phone] * (ABNORMAL) RENAL FUNCTION PANEL (07/30/2023 1:28 AM [facility]) Only the most recent of3 resultswithin the time period is included. BUN 20 7 - 26 mg/dL 07/30/2023 2:31 AM [facility] Creatinine 0.67 0.56 - 0.96 mg/dL 07/30/2023 2:31 AM [facility] Sodium 136 136 - 145 mmol/L 07/30/2023 2:31 AM [facility] Potassium 4.4 3.5 - 4.5 mmol/L 07/30/2023 2:31 AM [facility] Chloride 101 98 - 107 mmol/L 07/30/2023 2:31 AM [facility] CO2 27 22 - 29 mmol/L 07/30/2023 2:31 AM [facility] Glucose 238(H) 70 - 115 mg/dL 07/30/2023 2:31 AM [facility] Albumin 2.9(L) 3.4 - 5.0 g/dL 07/30/2023 2:31 AM [facility] Calcium 9.4 8.4 - 10.2 mg/dL 07/30/2023 2:31 AM [facility] Phosphorus 3.0 2.9 - 5.1 mg/dL 07/30/2023 2:31 AM [facility] Anion Gap 8 6 - 16 07/30/2023 2:31 AM [facility] BUN/Creatinine Ratio 30(H) 7 - 23 07/30/2023 2:31 AM [facility] Osmolality Calculated 292 275 - 295 mOsm/kg 07/30/2023 2:31 AM [facility] eGFR by CKD-EPI >90 >=90 mL/min/1.7 3 m2 07/30/2023 2:31 AM [facility] Blood BLOOD SPECIMEN / Unknown Lab Venipuncture / Unknown 07/30/2023 1:28 AM CDT 07/30/2023 2:04 AM CDT Brian Bravo MD LAB - CHEMISTRY ANGEL SPEARS Performing Organization Address City/[facility]/ZIP Co de Phone Number [facility] [address] [place] [address], [facility] [phone] * MAGNESIUM BLOOD (07/30/2023 1:28 AM CDT) Only the most recent of7 resultswithin the time period is included. Magnesium 1.8 1.6 - 2.6 mg/dL 07/30/2023 2:31 AM CDT [facility] Blood BLOOD SPECIMEN / Unknown Lab Venipuncture / Unknown 07/30/2023 1:28 AM CDT 07/30/2023 2:04 AM CDT Brian Bravo MD LAB - CHEMISTRY ANGEL SPEARS Performing Organization Address [facility]/ZIP Co de Phone Number [facility] [address] [place] [phone], [facility] [phone] * VAS LEFT VENOUS DUPLEX LE (07/27/2023 10:21 AM CDT) Anatomical Region Laterality Modality Lower Extremity, Upper Extremity Intravascular Ultrasound 07/27/2023 9:29 AM CDT Narrative Procedure Note Justen Ba MD - 07/27/2023 Cal Alicea MD VASCULAR LAB ORDERAB LES * (ABNORMAL) URINE MICROSCOPIC ONLY REFLEX TO CULTURE (07/27/2023 6:19 AM CDT) Only the most recent of6 resultswithin the time period is included. Reflex Status Culture to follow 07/27/2023 6:58 AM CDT [facility] RBC UA 0-2 None Seen, 0-2, 3-5 /HPF 07/27/2023 6:58 AM CDT [facility] WBC UA 21-50(A) None Seen, 0-5 /HPF 07/27/2023 6:58 AM [facility] Bacteria UA Trace(A) None /HPF 07/27/2023 6:58 AM [facility] Squamous Epithelial Cells UA None Seen None Seen, 0-2, 3-5 /HPF 07/27/2023 6:58 AM [facility] Mucus UA 1+ /LPF 07/27/2023 6:58 AM [facility] Urine URINE SPECIMEN OBTAINED BY CLEAN CATCH PROCEDURE / Unknown Collection / Unknown 07/27/2023 6:19 AM CDT 07/27/2023 6:29 AM T [facility] - 07/27/2023 6:58 AM CDT Choco Martin MD LAB - URINALYSIS ORD ERABLES [facility] [address] [place] [address], [facility] [phone] * (ABNORMAL) URINALYSIS REFLEX MICROSCOPIC REFLEX CULTURE (07/27/2023 6:19 AM CDT) Only the most recent of6 resultswithin the time period is included. Color UA Yellow Straw, Yellow 07/27/2023 6:46 AM [facility] Clarity UA Slt Cloudy(A) Clear 07/27/2023 6:46 AM [facility] Specific [place] UA 1.012 1.005 - 1.030 07/27/2023 6:46 AM [facility] pH UA 5.0 5.0 - 8.0 pH 07/27/2023 6:46 AM [facility] Protein UA Negative Negative 07/27/2023 6:46 AM [facility] Glucose UA Negative Negative 07/27/2023 6:46 AM [facility] Ketone UA Negative Negative 07/27/2023 6:46 AM [facility] Bilirubin UA Negative Negative 07/27/2023 6:46 AM [facility] Blood UA 1+(A) Negative 07/27/2023 6:46 AM [facility] Nitrite UA Positive(A) Negative 07/27/2023 6:46 AM [facility] Leukocyte Esterase Trace(A) Negative 07/27/2023 6:46 AM CDT [facility] Urobilinogen UA Negative Negative mg/dL 07/27/2023 6:46 AM CDT [facility] Urine URINE SPECIMEN OBTAINED BY CLEAN CATCH PROCEDURE / Unknown Collection / Unknown 07/27/2023 6:19 AM CDT 07/27/2023 6:29 AM CDT Narrative [facility] - 07/27/2023 6:46 AM CDT Choco Martin MD LAB - URINALYSIS ORD ERABLES Performing Organization Address [facility]/ZIP Co de Phone Number [address] [address], [facility] [phone] * PT-INR [facility] (07/26/2023 10:26 PM CDT) Only the most recent of9 resultswithin the time period is included. PT 14.2 12.1 - 14.8 Seconds 07/26/2023 10:56 PM CDT [facility] INR 1.1 See Comment 07/26/2023 10:56 PM CDT [facility] Comment:The suggested therap eutic range for standard coumadin (warfarin) therapy is an INR of 2.0-3.0. For high-risk patients (Mechanical Mitral Valve Prosthesis, etc.), the suggested prophylactic therapeutic range is an INR of 2.5-3.5. Blood BLOOD SPECIMEN / Unknown Venipuncture / Unknown 07/26/2023 10:26 PM CDT 07/26/2023 10:34 PM CDT Choco Martin MD LAB - COAGULATION OR DERABLES Performing Organization Address [facility]/ZIP Co de Phone Number [address] [address], [facility] [phone] * TYPE + SCREEN PANEL (07/26/2023 10:26 PM CDT) Only the most recent of2 resultswithin the time period is included. Antibody Screen NEG 11:23 PM CDT [facility] ABO Rh O POS 07/26/2023 11:23 PM T [facility] Blood Bank BLOOD SPECIMEN / Unknown Venipuncture / Unknown 07/26/2023 10:26 PM CDT 07/26/2023 10:31 PM CDT Choco Martin MD LAB - BLOOD BANK ORD ERABLES [facility] [address] [place] [address], [facility] [phone] * (ABNORMAL) CBC W AUTO DIFFERENTIAL (07/26/2023 10:26 PM CDT) Only the most recent of22 resultswithin the time period is included. WBC 10.0 4.0 - 10.7 x10E9/L 07/26/2023 10:42 PM [facility] RBC Count 4.04 3.90 - 5.20 x10E12/L 07/26/2023 10:42 PM [facility] Hemoglobin 11.7(L) 11.9 - 15.8 g/dL 07/26/2023 10:42 PM [facility] Hematocrit 36.1 34.8 - 46.1 % 07/26/2023 10:42 PM [facility] MCV 89.4 80.0 - 98.0 fL 07/26/2023 10:42 PM [facility] MCH 29.0 26.7 - 33.6 pg 07/26/2023 10:42 PM [facility] MCHC 32.4 31.7 - 36.3 g/dL 07/26/2023 10:42 PM [facility] RDW-CV 13.5 11.3 - 14.8 % 07/26/2023 10:42 PM [facility] Platelet Count 268 150 - 420 x10E9/L 07/26/2023 10:42 PM [facility] MPV 9.9 7.8 - 11.4 fL 07/26/2023 10:42 PM [facility] Neutrophil % 60.2 41.0 - 74.0 % 07/26/2023 10:42 PM CDT [facility] Lymphocyte % 28.9 17.0 - 47.0 % 07/26/2023 10:42 PM [facility] Monocyte % 7.6 3.0 - 11.0 % 07/26/2023 10:42 PM [facility] Eosinophil % 2.7 0.0 - 7.0 % 07/26/2023 10:42 PM T [facility] Basophil % 0.3 0.0 - 1.6 % 07/26/2023 10:42 PM [facility] Immature Granulocytes % 0.3 0.0 - 1.0 % 07/26/2023 10:42 PM [facility] Neutrophil Absolute 5.98 1.60 - 7.50 x10E9/L 07/26/2023 10:42 PM [facility] Lymphocyte Absolute 2.88 1.00 - 4.40 x10E9/L 07/26/2023 10:42 PM T [facility] Monocyte Absolute 0.76 0.15 - 1.00 x10E9/L 07/26/2023 10:42 PM [facility] Eosinophil Absolute 0.27 0.00 - 0.60 x10E9/L 07/26/2023 10:42 PM [facility] Basophil Absolute 0.03 0.00 - 0.13 x10E9/L 07/26/2023 10:42 PM [facility] Blood BLOOD SPECIMEN / Unknown Venipuncture / Unknown 07/26/2023 10:26 PM CDT 07/26/2023 10:34 PM CDT Choco Martin MD LAB - HEMATOLOGY ORD ERABLES [facility] [address] [place] [address], [facility] [phone] * (ABNORMAL) COMPREHENSIVE METABOLIC PANEL (07/26/2023 10:26 PM CDT) Only the most recent of22 resultswithin the time period is included. [facility] BUN 13 7 - 26 mg/dL 07/26/2023 11:00 PM [facility] Creatinine 0.63 0.56 - 0.96 mg/dL 07/26/2023 11:00 PM [facility] Sodium 141 136 - 145 mmol/L 07/26/2023 11:00 PM [facility] Potassium 3.9 3.5 - 4.5 mmol/L 07/26/2023 11:00 PM [facility] Chloride 104 98 - 107 mmol/L 07/26/2023 11:00 PM [facility] CO2 28 22 - 29 mmol/L 07/26/2023 11:00 PM [facility] Glucose 131(H) 70 - 115 mg/dL 07/26/2023 11:00 PM [facility] Calcium 9.5 8.4 - 10.2 mg/dL 07/26/2023 11:00 PM [facility] Protein Total 7.5 6.0 - 8.3 g/dL 07/26/2023 11:00 PM [facility] Albumin 3.1(L) 3.4 - 5.0 g/dL 07/26/2023 11:00 PM [facility] Bilirubin Total 0.5 0.2 - 1.2 mg/dL 07/26/2023 11:00 PM [facility] Alkaline Phosphatase 74 40 - 150 U/L 07/26/2023 11:00 PM [facility] ALT 19 5 - 55 U/L 07/26/2023 11:00 PM [facility] AST 17 5 - 34 U/L 07/26/2023 11:00 PM [facility] Anion Gap 9 6 - 16 07/26/2023 11:00 PM [facility] BUN/Creatinine Ratio 21 7 - 23 07/26/2023 11:00 PM [facility] Osmolality Calculated 294 275 - 295 mOsm/kg 07/26/2023 11:00 PM [facility] Albumin/Globulin Ratio 0.7(L) 1.1 - 2.3 07/26/2023 11:00 PM [facility] eGFR by CKD-EPI >90 >=90 mL/min/1.7 3 m2 07/26/2023 11:00 PM CDT [facility] Blood BLOOD SPECIMEN / Unknown Venipuncture / Unknown 07/26/2023 10:26 PM CDT 07/26/2023 10:34 PM CDT Choco Martin MD LAB - CHEMISTRY ANGEL SPEARS Performing Organization Address City/[facility]/ZIP Co de Phone Number [facility] [address] [place] [id number], [place] [phone] * CARDIAC EKG ORDER (06/19/2023 1:38 PM AUTOMATED ACCESS SYSTEMS TECHNICIAN) Only the most recent of6 resultswithin the time period is included. Narrative 06/19/2023 1:38 PM AUTOMATED ACCESS SYSTEMS TECHNICIAN Ordered by an unspecified provider. Scanned Document CARDIAC SERVICES ORD ERABLES * TROPONIN-I HIGH SENSITIVE REFLEX 1HOUR (06/16/2023 4:44 PM AUTOMATED ACCESS SYSTEMS TECHNICIAN) Only the most recent of5 resultswithin the time period is included. Troponin I High Sensitive <3 <=14 ng/L 06/16/2023 5:28 PM AUTOMATED ACCESS SYSTEMS TECHNICIAN [facility] Delta Troponin I HS 06/16/2023 5:28 PM AUTOMATED ACCESS SYSTEMS TECHNICIAN [facility] Comment:Result exceeds linea rity range. A delta value is unable to be calculated. Blood BLOOD SPECIMEN / Unknown Venipuncture / Unknown 06/16/2023 4:44 PM AUTOMATED ACCESS SYSTEMS TECHNICIAN 06/16/2023 4:50 PM AUTOMATED ACCESS SYSTEMS TECHNICIAN Roger Snowden MD LAB - CHEMISTRY ANGEL SPEARS [facility] [address] [place] [id number], [place] [phone] * TROPONIN-I HIGH SENSITIVE BASELINE + 1HR (06/16/2023 3:28 PM AUTOMATED ACCESS SYSTEMS TECHNICIAN) Only the most recent of5 resultswithin the time period is included. Troponin I High Sensitive <3 <=14 ng/L 06/16/2023 4:09 PM AUTOMATED ACCESS SYSTEMS TECHNICIAN [facility] Blood BLOOD SPECIMEN / Unknown Venipuncture / Unknown 06/16/2023 3:28 PM AUTOMATED ACCESS SYSTEMS TECHNICIAN 06/16/2023 3:37 PM AUTOMATED ACCESS SYSTEMS TECHNICIAN Roger Snowden MD LAB - CHEMISTRY ANGEL SPEARS [facility] [address] [place] [id number], [facility] [phone] * B-TYPE NATRIURETIC PEPTIDE (06/16/2023 3:28 PM AUTOMATED ACCESS SYSTEMS TECHNICIAN) Only the most recent of2 resultswithin the time period is included. [facility] BNP 15 <100 pg/mL 06/16/2023 4:08 PM AUTOMATED ACCESS SYSTEMS TECHNICIAN [facility] Comment: A decision threshold of 100 pg/mL has been demonstrated to provide the maximal combination of sensitivity, specificity and predictive value for the diagnosis of congestive heart failure (CHF). ??Virtually all patients with no evidence of CHF have BNP values less than 100 pg/mL. A BNP value greater than 100 pg/mL is consistent with the diagnosis of CHF in the appropriate clinical setting. In a study of 693 patients (male and female) with diagnosed CHF, the following values were determined based on the NYHA functional classification system: NYHA Functional Class ?Mean Valule (pg/mL) ? % >100 pg/mL ?I ?320 ? 58.1 ?II ? 432 ? 73.0 ?III ?656 ? 79.0 ?IV ?1635 ? 98.3 ? Blood BLOOD SPECIMEN / Unknown Venipuncture / Unknown 06/16/2023 3:28 PM AUTOMATED ACCESS SYSTEMS TECHNICIAN 06/16/2023 3:37 PM AUTOMATED ACCESS SYSTEMS TECHNICIAN Roger Snowden MD LAB - CHEMISTRY ANGEL SPEARS [address] [address], [facility] [phone] * XR CHEST 1VW PORTABLE (06/16/2023 3:17 PM AUTOMATED ACCESS SYSTEMS TECHNICIAN) Only the most recent of5 resultswithin the time period is included. Anatomical Region Laterality Modality Chest Radiographic Lizeth ging 06/16/2023 3:17 PM AUTOMATED ACCESS SYSTEMS TECHNICIAN Narrative 06/16/2023 4:20 PM AUTOMATED ACCESS SYSTEMS TECHNICIAN PROCEDURE: ??XR CHEST 1VW PORTABLE, DATE/TIME OF EXAM: ??06/16/2023 3:18 PM, LOCATION ??[facility] INDICATION: R06.02: Shortness of breath ADDITIONAL CLINICAL INFORMATION: Ordering Provider Reason For Exam: ??sob COMPARISON: X-ray chest 03/24/2023. TECHNIQUE: Frontal radiograph of the chest. FINDINGS/IMPRESSION: *Spinal stimulator terminates at the mid thoracic spine, unchanged. There is mild patient rotation to the left. There is no pulmonary consolidation, pleural effusion, or pneumothorax. The heart size and mediastinal contours are normal. The visible bony thorax is intact. Report dictated by Ulises Sanford MD, ([employer]). I, Raquel Cedillo MD have personally reviewed and interpreted this examination/study. > Interpreting Provider: Raquel Cedillo MD on 06/16/2023 4:20 PM Procedure Note Raquel Cedillo MD - 06/16/2023 PROCEDURE: XR CHEST 1VW PORTABLE, DATE/TIME OF EXAM: 06/16/2023 3:18PM, LOCATION [facility] INDICATION: R06.02: Shortness of breath ADDITIONAL CLINICAL INFORMATION: Ordering Provider Reason For Exam: sob COMPARISON: X-ray chest 03/24/2023. TECHNIQUE: Frontal radiograph of the chest. FINDINGS/IMPRESSION: *Spinal stimulator terminates at the mid thoracic spine, unchanged. There is mild patient rotation to the left. There is no pulmonary consolidation, pleural effusion, or pneumothorax.The heart size and mediastinal contours are normal. The visible bony thoraxis intact. Report dictated by Ulises Sanford MD, ([employer]). I, Raquel Cedillo MD have personally reviewed and interpreted this examination/study. > Interpreting Provider: Raquel Cedillo MD on 06/16/2023 4:20 PM Roger Snowden MD DIAGNOSTIC IMAGING O RDERABLES * EKG 12-LEAD (06/16/2023 8:33 AM AUTOMATED ACCESS SYSTEMS TECHNICIAN) Only the most recent of9 resultswithin the time period is included. Ventricular Rate 94 BPM [facility] MUSE Atrial Rate 94 BPM H MUSE P-R Interval 144 ms H MUSE QRS Duration ms 80 ms H MUSE Q-T Interval ms 364 ms [facility] MUSE QTC Calculation (Bezet) 455 ms [facility] MUSE Calculated P [place] 15 degrees [facility] MUSE Calculated R [place] 2 degrees [facility] MUSE Calculated T [place] 50 degrees [facility] MUSE Interpretation EKG NORMAL SINUS RHYTHM NONSPECIFIC T WAVE ABNORMALITY ABNORMAL ECG WHEN COMPARED WITH ECG OF 28-MAY-2023 16:24, NO SIGNIFICANT CHANGE WAS FOUND Confirmed by JAGUAR ??DWAIN DURÁN ([id number]) on 06/24/2023 5:38:25 PM [facility] MUSE 06/16/2023 8:33 AM AUTOMATED ACCESS SYSTEMS TECHNICIAN 06/24/2023 5:38 PM AUTOMATED ACCESS SYSTEMS TECHNICIAN Roger Snowden MD ECG ORDERABLES [facility] MUSE * EMG WITH NERVE CONDUCTION STUDY (05/31/2023 11:59 PM AUTOMATED ACCESS SYSTEMS TECHNICIAN) Narrative Stanford Saldana MD - 05/31/2023 11:59 PM AUTOMATED ACCESS SYSTEMS TECHNICIAN Stanford Saldana MD ? 06/05/2023 ??5:21 PM [facility] [address], [address] [place], [place] [phone] Patient: Karly Marques V #: ??Physician: Stanford Saldana MD Sex: Female ID#: [id number] Ref Phys: Melly Banks CLAIM TECHNICIAN-FACTORY CLERK : 1955 Date: 05/31/2023 Pit Slagman: Christin Panchal Patient Complaints: The patient is a 67 year old female with complaints of back pain, pain, numbness, weakness, and tingling in bilateral lower extremities. ??The symptoms have been present for 12 ??weeks. ??The patient has a history of diabetes mellitus and cancer. Query peripheral neuropathy. Patient is currently taking xarelto. EMG & NCV Findings: 1. The left peroneal motor and the right peroneal motor nerve conduction studies showed no response (B Fib) and no response (Poplt). 2. The left peroneal motor nerve conduction study from tibialis anterior motor and the right peroneal motor nerve conduction study from tibialis anterior motor nerve conduction studies showed small amplitude (Fib Head, L0.3, R2.5 mV) and small amplitude (Poplit, L0.9, R2.3 mV). 3. The left tibial motor nerve conduction study showed small amplitude (Knee, 0.5 mV) and slow conduction velocity (Knee-Ankle, 34 m/s). 4. The right tibial motor nerve conduction study showed no response (Knee) and no response (Knee). 5. The left superficial peroneal antidromic sensory Anti Sensory nerve conduction study showed no response (12 cm). 6. The right superficial peroneal antidromic sensory Anti Sensory and the right sural antidromic sensory Anti Sensory nerve conduction studies showed small amplitude (R0.7, R1.8 ??V). 7. The left sural antidromic sensory Anti Sensory nerve conduction study showed no response (Calf). 8. All left vs. right side differences were within normal limits. 9. All F Wave latencies were within normal limits. 10. Left vs. Right comparison data for the peroneal F wave indicates abnormal L-R latency difference (14.04 ms). 11. All remaining F Wave left vs. right side latency differences were within normal limits. 12. H-reflex studies indicate that the left tibial H-reflex has no response. 13. The right tibial H-reflex has no response. ? ? Needle EMG evaluation of the left medial gastrocnemius muscle showed increased insertional activity, long motor unit duration, and few polyphasic potentials. ? ? The right lateral gastrocnemius muscle showed increased insertional activity, 1+ ??Fibs/PSWs, and few polyphasic potentials. ? ? The right medial gastrocnemius and the right vastus medialis muscles showed increased insertional activity and few polyphasic potentials. ? ? EMG of all remaining muscles (as indicated in the following table) was normal. IMPRESSION Abnormal study showing combination of large fiber sensory motor chronic polyneuropathy as well as lumbosacral radiculopathy even though the paraspinals were not done because of bleeding risk from anticoagulation. ??Involvement of peroneal nerve is asymmetric, more on the left compared to the right. Please correlate clinically. Stanford Saldana MD Diplomate, Neuromuscular and Electrodiagnostic Medicine Nerve Conduction Studies Motor Summary Table Stim Site NR Onset (ms) Norm Onset (ms) O-P Amp (mV) Norm O-P Amp Neg Area (mVms) Site1 Site2 Delta-0 (ms) Dist (cm) Singh (m/s) Norm Singh (m/s) Left Peroneal Motor (Ext Dig Brev) ??36.4 ??C Ankle ?3.5 <6.6 3.6 >2.0 9.46 B Fib Ankle ??34.0 ??>42 B Fib NR ?>2.0 ??Poplt B Fib ??0.0 ??>42 Poplt NR ?>2.0 ? Right Peroneal Motor (Ext Dig Brev) ??36.4 ??C Ankle ?3.1 <6.6 2.3 >2.0 7.88 B Fib Ankle ??34.0 ??>42 B Fib NR ?>2.0 ??Poplt B Fib ??0.0 ??>42 Poplt NR ?>2.0 ? Left Peroneal TA Motor (Tib Ant) ??36.4 ??C Fib Head ?4.3 <6.6 0.3 >5.0 1.86 Poplit Fib Head 0.5 0.0 ??>42 Poplit ?4.8 <5.7 0.9 >5.0 3.82 ? Right Peroneal TA Motor (Tib Ant) ??36.4 ??C Fib Head ?1.1 <6.6 2.5 >5.0 18.01 Poplit Fib Head 3.7 0.0 ??>42 Poplit ?4.8 <5.7 2.3 >5.0 14.45 ? Left Tibial ADH Motor (Abd Valencia Brev) ??36.4 ??C Ankle ?4.4 <6.6 3.2 >2.0 8.72 Knee Ankle 9.4 32.0 34 >42 Knee ?13.8 ??0.5 >2.0 1.54 ? Right Tibial ADH Motor Run #1 (Abd Valencia Brev) ??36.4 ??C Ankle ?3.5 <6.6 2.3 >2.0 7.32 Knee Ankle ??32.0 ??>42 Knee NR ?>2.0 ? Right Tibial ADH Motor Run #2 (Abd Valencia Brev) ??36.4 ??C Ankle ?4.5 <6.6 2.1 >2.0 5.79 Knee Ankle ??32.0 ??>42 Knee NR ?>2.0 ? Anti Sensory Summary Table Stim Site NR Onset (ms) Peak (ms) Norm Onset (ms) O-P Amp (??V) Norm O-P Amp Site1 Site2 Delta-0 (ms) Dist (cm) Singh (m/s) Norm Singh (m/s) Left Sup Peron Anti Sensory (Ant Lat Mall) ??36.4 ??C 12 cm NR ? >6.0 12 cm Ant Lat Mall ??12.0 ?? Right Sup Peron Anti Sensory (Ant Lat Mall) ??36.4 ??C 12 cm ?2.7 3.6 ??0.7 >6.0 12 cm Ant Lat Mall 2.7 12.0 44 ?? Left Sural Anti Sensory (Lat Mall) ??36.4 ??C Calf NR ?? <4.0 ??>5.0 Calf Lat Mall ??14.0 ?? Right Sural Anti Sensory (Lat Mall) ??36.4 ??C Calf ?2.9 3.8 <4.0 1.8 >5.0 Calf Lat Mall 2.9 14.0 48 ?? F Wave Studies NR F-Lat (ms) Lat Norm (ms) L-R F-Lat (ms) L-R Lat Norm Left Peroneal (Mrkrs) (EDB) ??36.4 ??C ?? 40.00 <56 14.04 <5.1 Right Peroneal (Mrkrs) (EDB) ??36.4 ??C ?? 25.96 <56 14.04 <5.1 Left Tibial (Mrkrs) (Abd Hallucis) ??36.4 ??C ?? 40.00 <58 0.00 <5.7 Right Tibial (Mrkrs) (Abd Hallucis) ??36.4 ??C ?? 40.00 <58 0.00 <5.7 H Reflex Studies NR H-Lat (ms) Lat Norm (ms) L-R H-Lat (ms) L-R Lat Norm Left Tibial (Soleus) ??36.4 ??C NR ??<34 ??<2.0 Right Tibial (Soleus) ??36.4 ??C NR ??<34 ??<2.0 EMG Side Muscle Nerve Root Insrt Fibs Psw Fasc Amp Dur Poly Recrt Comm Left Ext Dig Brev Dp Br Peron L5, S1 Nml Nml Nml 0 Nml Nml 0 Nml ?? Left LatGastroc Tibial S1-2 Nml Nml Nml 0 Nml Nml 0 Nml ?? Left MedGastroc Tibial S1-2 Incr Nml Nml 0 Nml Incr 1+ Nml ?? Left AntTibialis Dp Br Peron L4-5 Nml Nml Nml 0 Nml Nml 0 Nml ?? Left VastusMed Femoral L2-4 Nml Nml Nml 0 Nml Nml 0 Nml ?? Left Upper Lumbar Paraspinals Rami L1-L2 Nml Nml Nml 0 Nml Nml 0 Nml PSM not done due to xarelto Left Middle Lumbar Paraspinals Rami L2-L4 Nml Nml Nml 0 Nml Nml 0 Nml ND ??xarelto Left Lower LS paraspinal Rami L4-S2 Nml Nml Nml 0 Nml Nml 0 Nml ND Right Ext Dig Brev Dp Br Peron L5, S1 Nml Nml Nml 0 Nml Nml 0 Nml Right LatGastroc Tibial S1-2 Incr Nml 1+ 0 Nml Nml 1+ Nml ?? Right MedGastroc Tibial S1-2 Incr Nml Nml 0 Nml Nml 1+ Nml ?? Right AntTibialis Dp Br Peron L4-5 Nml Nml Nml 0 Nml Nml 0 Nml ?? Right VastusMed Femoral L2-4 Incr Nml Nml 0 Nml Nml 1+ Nml ?? Right Upper Lumbar Paraspinals Rami L1-L2 Nml Nml Nml 0 Nml Nml 0 Nml ND Right Middle Lumbar Paraspinals Rami L2-L4 Nml Nml Nml 0 Nml Nml 0 Nml ND Right Lower LS paraspinal Rami L4-S2 Nml Nml Nml 0 Nml Nml 0 Nml ND Waveforms: ? Melly Banks CLAIM TECHNICIAN-FACTORY CLERK NEUROLOGY ORDERA BLES * CT LUMBAR SPINE W CONTRAST (05/29/2023 12:29 AM AUTOMATED ACCESS SYSTEMS TECHNICIAN) Only the most recent of4 resultswithin the time period is included. Anatomical Region Laterality Modality Spine Computed Tomogra phy 05/29/2023 9:24 AM AUTOMATED ACCESS SYSTEMS TECHNICIAN Impressions 05/29/2023 9:34 AM AUTOMATED ACCESS SYSTEMS TECHNICIAN IMPRESSION: 1. ??Lumbar degenerative change with neural foraminal stenosis on the right at L4-L5. 2. Chronic findings of sacroiliitis. > Interpreting Provider: Fabiola Alegre MD on 05/29/2023 9:34 AM Narrative 05/29/2023 9:34 AM AUTOMATED ACCESS SYSTEMS TECHNICIAN PROCEDURE: ??CT LUMBAR SPINE W CONTRAST DATE/TIME OF EXAM: ??05/29/2023 12:30 AM CLINICAL INFORMATION: None relevant/not provided if blank. Indication: M54.16: Radiculopathy, lumbar region R53.1: Weakness Additional History: COMPARISON: 03/23/2023 TECHNIQUE: Contrast CT of the lumbar spine was preformed utilizing standard protocol. Sagittal and coronal reformatted images were rendered. ?? CT dose reduction technique was used, including Automated Exposure Control. IV CONTRAST: IOPAMIDOL 76 % IV SOLN:100 mL FINDINGS: The alignment is normal. Vertebral bodies are normal in height without evidence of acute fracture. There is multilevel disc space narrowing with disc bulges at L3-L4 and L4-L5. There is multilevel facet arthritis. There is no central canal stenosis. There is severe neural foraminal narrowing on the right at L4-L5. There is sclerosis and erosions along both sacroiliac joints. No soft tissue abnormality is identified. A dorsal column simulator is partially visualized. Procedure Note Fabiola Alegre MD - 05/29/2023 PROCEDURE: CT LUMBAR SPINE W CONTRAST DATE/TIME OF EXAM: 05/29/2023 12:30 AM CLINICAL INFORMATION: None relevant/not provided if blank. Indication: M54.16: Radiculopathy, lumbar region R53.1: Weakness Additional History: COMPARISON: 03/23/2023 TECHNIQUE: Contrast CT of the lumbar spine was preformed utilizing standard protocol. Sagittal and coronal reformatted images were rendered. CT dose reduction technique was used, including Automated ExposureControl. IV CONTRAST: IOPAMIDOL 76 % IV SOLN:100 mL FINDINGS: The alignment is normal. Vertebral bodies are normal in height without evidence of acute fracture. There is multilevel disc space narrowingwith disc bulges at L3-L4 and L4-L5. There is multilevel facet arthritis.There is no central canal stenosis. There is severe neural foraminal narrowingon the right at L4-L5. There is sclerosis and erosions along bothsacroiliac joints. No soft tissue abnormality is identified. A dorsal columnsimulator is partially visualized. IMPRESSION: 1. Lumbar degenerative change with neural foraminal stenosis on theright at L4-L5. 2. Chronic findings of sacroiliitis. > Interpreting Provider: Fabiola Alegre MD on 05/29/2023 9:34 AM Estela Jaimes PA-C CT ORDERABLES * XR LUMBAR SPINE TRAUMA 2 OR 3 VW (05/28/2023 6:44 PM AUTOMATED ACCESS SYSTEMS TECHNICIAN) Only the most recent of2 resultswithin the time period is included. Anatomical Region Laterality Modality Spine Radiographic Lizeth ging 05/29/2023 10:2 6 AM AUTOMATED ACCESS SYSTEMS TECHNICIAN Impressions 05/29/2023 10:27 AM AUTOMATED ACCESS SYSTEMS TECHNICIAN IMPRESSION: Lumbar degenerative change with no radiographic evidence of acute osseous abnormality of the lumbar spine. > Interpreting Provider: Fabiola Alegre MD on 05/29/2023 10:27 AM Narrative 05/29/2023 10:27 AM AUTOMATED ACCESS SYSTEMS TECHNICIAN PROCEDURE: ??XR LUMBAR SPINE 2 OR 3VW DATE/TIME OF EXAM: ??05/28/2023 6:45 PM CLINICAL INFORMATION: None relevant/not provided if blank. Indication: M54.42: Lumbago with sciatica, left side M54.41: Lumbago with sciatica, right side Additional History: COMPARISON: 02/06/2023 FINDINGS: Alignment is normal. There is multilevel disc space narrowing, most severe at L2-L3. There is multilevel facet arthritis. A dorsal column stimulator is seen. Vertebral body heights are normal. There is no paravertebral soft tissue abnormality. There is sclerosis along the sacroiliac joints. Procedure Note Fabiola Alegre MD - 05/29/2023 PROCEDURE: XR LUMBAR SPINE 2 OR 3VW DATE/TIME OF EXAM: 05/28/2023 6:45 PM CLINICAL INFORMATION: None relevant/not provided if blank. Indication: M54.42: Lumbago with sciatica, left side M54.41: Lumbago with sciatica, right side Additional History: COMPARISON: 02/06/2023 FINDINGS: Alignment is normal. There is multilevel disc space narrowing, mostsevere at L2-L3. There is multilevel facet arthritis. A dorsal columnstimulator is seen. Vertebral body heights are normal. There is no paravertebralsoft tissue abnormality. There is sclerosis along the sacroiliac joints. IMPRESSION: Lumbar degenerative change with no radiographic evidence of acuteosseous abnormality of the lumbar spine. > Interpreting Provider: Fabiola Alegre MD on 05/29/2023 10:27 AM Estela Jaimes PA-C DIAGNOSTIC IM AGING ORDERABLES * XR THORACIC SPINE TRAUMA 2 VW (05/28/2023 6:44 PM AUTOMATED ACCESS SYSTEMS TECHNICIAN) Anatomical Region Laterality Modality Spine Radiographic Lizeth ging 05/29/2023 10:2 5 AM AUTOMATED ACCESS SYSTEMS TECHNICIAN Impressions 05/29/2023 10:26 AM AUTOMATED ACCESS SYSTEMS TECHNICIAN IMPRESSION: Degenerative changes with no radiographic evidence of acute osseous abnormality of the thoracic spine. > Interpreting Provider: Fabiola Alegre MD on 05/29/2023 10:26 AM Narrative 05/29/2023 10:26 AM AUTOMATED ACCESS SYSTEMS TECHNICIAN PROCEDURE: ??XR THORACIC SPINE 2VW DATE/TIME OF EXAM: ??05/28/2023 6:44 PM CLINICAL INFORMATION: None relevant/not provided if blank. Indication: M54.42: Lumbago with sciatica, left side M54.41: Lumbago with sciatica, right side Additional History: COMPARISON: None. FINDINGS: There is rightward spinal curvature. There is exaggerated thoracic kyphosis. There is multilevel disc space narrowing. A dorsal column stimulator is seen terminating at T7. Vertebral body heights are normal. There is no paravertebral soft tissue abnormality. Procedure Note Fabiola Alegre MD - 05/29/2023 PROCEDURE: XR THORACIC SPINE 2VW DATE/TIME OF EXAM: 05/28/2023 6:44 PM CLINICAL INFORMATION: None relevant/not provided if blank. Indication: M54.42: Lumbago with sciatica, left side M54.41: Lumbago with sciatica, right side Additional History: COMPARISON: None. FINDINGS: There is rightward spinal curvature. There is exaggerated thoracic kyphosis. There is multilevel disc space narrowing. A dorsal column stimulator is seen terminating at T7. Vertebral body heights are normal. There is no paravertebral soft tissue abnormality. IMPRESSION: Degenerative changes with no radiographic evidence of acute osseous abnormality of the thoracic spine. > Interpreting Provider: Fabiola Alegre MD on 05/29/2023 10:26 AM Estela Jaimes PA-C DIAGNOSTIC IM AGING ORDERABLES * (ABNORMAL) BASIC METABOLIC PANEL (CALCIUM TOTAL) (05/16/2023 2:35 AM AUTOMATED ACCESS SYSTEMS TECHNICIAN) Only the most recent of5 resultswithin the time period is included. Glucose 174(H) 70 - 105 mg/dL 05/16/2023 2:52 AM AUTOMATED ACCESS SYSTEMS TECHNICIAN [facility] Sodium 140 136 - 145 mmol/L 05/16/2023 2:[address] [facility] Potassium 4.1 3.5 - 5.1 mmol/L 05/16/2023 2:[address] [facility] Chloride 107 98 - 107 mmol/L 05/16/2023 2:[address] [facility] CO2 25 22 - 29 mmol/L 05/16/2023 2:[address] [facility] Calcium 9.0 8.4 - 10.4 mg/dL 05/16/2023 2:[address] [facility] Anion Gap 8 6 - 16 mmol/L 05/16/2023 2:[address] [facility] BUN 13 7 - 26 mg/dL 05/16/2023 2:[address] [facility] Creatinine 0.67 0.57 - 1.11 mg/dL 05/16/2023 2:[address] [facility] eGFR by CKD-EPI >90 >=90 mL/min/1.7 3 m2 05/16/2023 2:[address] [facility] Blood BLOOD SPECIMEN / Unknown Venipuncture / Unknown 05/16/2023 2:35 AM AUTOMATED ACCESS SYSTEMS TECHNICIAN 05/16/2023 2:35 AM AUTOMATED ACCESS SYSTEMS TECHNICIAN Mary Velasquez MD LAB - CHEMISTRY ANGEL SPEARS [facility] Organization Address City/State/ZIP Co de Phone Number [facility] [address] [place] [address] * (ABNORMAL) C-REACTIVE PROTEIN (04/17/2023 8:59 PM AUTOMATED ACCESS SYSTEMS TECHNICIAN) Only the most recent of9 resultswithin the time period is included. Pathologist [facility] C-Reactive Protein 2.98(H) <=0.50 mg/dL 04/17/2023 9:15 PM AUTOMATED ACCESS SYSTEMS TECHNICIAN [facility] Blood BLOOD SPECIMEN / Unknown Venipuncture / Unknown 04/17/2023 8:59 PM AUTOMATED ACCESS SYSTEMS TECHNICIAN 04/17/2023 8:59 PM AUTOMATED ACCESS SYSTEMS TECHNICIAN Yasmin Matthew DO LAB - CHEMISTRY ANGEL SPEARS Performing Organization Address City/[facility]/ZIP Co de Phone Number [facility] [address] [place] [phone] * (ABNORMAL) ERYTHROCYTE SEDIMENTATION RATE (04/17/2023 8:59 PM AUTOMATED ACCESS SYSTEMS TECHNICIAN) Only the most recent of9 resultswithin the time period is included. Pathologist [facility] Erythrocyte Sedimentation Rate Automated 82(H) 0 - 30 MM/HR 04/17/2023 9:23 PM AUTOMATED ACCESS SYSTEMS TECHNICIAN [facility] Blood BLOOD SPECIMEN / Unknown Venipuncture / Unknown 04/17/2023 8:59 PM AUTOMATED ACCESS SYSTEMS TECHNICIAN 04/17/2023 8:59 PM AUTOMATED ACCESS SYSTEMS TECHNICIAN Yasmin Matthew DO LAB - HEMATOLOGY ORD NEGRITA Performing Organization Address [facility]/ZIP Co de Phone Number [facility] [address] [place] [id number] * PHOSPHORUS BLOOD (03/20/2023 3:55 AM AUTOMATED ACCESS SYSTEMS TECHNICIAN) Only the most recent of4 resultswithin the time period is included. Phosphorus 2.9 2.9 - 5.1 mg/dL 03/20/2023 4:41 AM AUTOMATED ACCESS SYSTEMS TECHNICIAN [facility] Blood BLOOD SPECIMEN / Unknown Venipuncture / Unknown 03/20/2023 3:55 AM AUTOMATED ACCESS SYSTEMS TECHNICIAN 03/20/2023 4:11 AM AUTOMATED ACCESS SYSTEMS TECHNICIAN Coco Harris MD LAB - CHEMISTRY ANGEL SPEARS [address] [address], [place] [phone] * SARS-COV-2 (COVID-19) RAPID (03/19/2023 1:50 PM AUTOMATED ACCESS SYSTEMS TECHNICIAN) COVID-19 PCR Not detected Not detected 03/19/20 23 2:29 PM AUTOMATED ACCESS SYSTEMS TECHNICIAN [facility] Microbiology SPECIMEN FROM NASOPHARYNGEAL STRUCTURE / Unknown Collection / Unknown 03/19/2023 1:50 PM AUTOMATED ACCESS SYSTEMS TECHNICIAN 03/19/2023 1:55 PM AUTOMATED ACCESS SYSTEMS TECHNICIAN Narrative [facility] - 03/19/2023 2:29 PM AUTOMATED ACCESS SYSTEMS TECHNICIAN The CepPlated Xpert Xpress SARS-COV-2 has been authorized by the Food and Drug Administration (FDA) under an Emergency Use Authorization (EUA). This test has been validated in accordance with the FDA's guidance document Policy for Diagnostic Testing in Laboratories Certified to perform High Complexity Testing under CLIA prior to Emergency Use Authorization for Coronavirus Disease-2019 during the Public Health Emergency issued on June 22, 2019. FDA independent review of this validation is pending. This test is only authorized for the duration of the time the declaration that circumstances exist justifying the authorization of emergency use of in vitro diagnostic tests for detection of SARS-COV-2 virus and/or diagnosis of COVID-19 infection under 564(b) (1) of the Act. 21 U.S.C. 360bbb-3 (b) (1), unless the authorization is terminated or revoked sooner. Fact Sheets for this EUA assay are available upon request. Sisi Ricks PA-C LAB - MICROBIOLOGY ORDERABLES [address] [address], [facility] [phone] * VANCOMYCIN LEVEL TROUGH (02/22/2023 7:59 AM CDT) Only the most recent of2 resultswithin the time period is included. Vancomycin Trough 14.6 10.0 - 20.0 ug/mL 02/22/2023 10:46 AM CDT [facility] Blood BLOOD SPECIMEN / Unknown Lab Venipuncture / Unknown 02/22/2023 7:59 AM CDT 02/22/2023 9:51 AM CDT Narrative [facility] - 02/22/2023 10:46 AM CDT See institution protocol. Berenice Hawkins MD LAB - CHEMISTRY NILESNicholas VOGELSIMRAN Performing Organization Address [facility]/ZIP Co de Phone Number [address] [address], [facility] [phone] * VANCOMYCIN LEVEL PEAK (02/22/2023 2:46 AM CDT) Vancomycin Peak 25.3 25.0 - 40.0 ug/mL 02/22/2023 3:13 AM CDT [facility] Blood BLOOD SPECIMEN / Unknown Venipuncture / Unknown 02/22/2023 2:46 AM CDT 02/22/2023 2:53 AM CDT Narrative [facility] - 02/22/2023 3:13 AM CDT See institution protocol. Data does not support the use of vancomycin peak concentration for efficacy. Berenice Hawkins MD LAB - CHEMISTRY ANGEL SPEARS Performing Organization Address [facility] de Phone Number [address] [address], [facility] [phone] * CT ABDOMEN PELVIS W CONTRAST (02/22/2023 12:50 AM CDT) Only the most recent of2 resultswithin the time period is included. Anatomical Region Laterality Modality Abdomen, Pelvis Computed Tomogra phy 02/22/2023 12:5 2 AM CDT Impressions 02/22/2023 11:12 AM CDT Impression: 1.Postoperative changes from spinal cord stimulator implantation with generator in the left lower back/flank and intact leads coursing through the level of the imaged mid thoracic spine. 2.Small fluid collection in the right lower back/flank at the site of lead insertion (series 3 image 73) which measures simple fluid in attenuation in lacks peripheral enhancement. Findings may represent a small postoperative seroma. No discrete evidence of superimposed infection at this time, however developing abscess cannot be excluded. Correlation with physical exam is recommended. Of note, gas within this collection has resolved since the prior examination dated 02/10/2023. 3.Otherwise, no acute process in the abdomen or pelvis. Report drafted by Edgar Andersresident) ESLVIN Perez MD have personally reviewed and interpreted this examination/study. > Interpreting Provider: SELVIN BARON MD on 02/22/2023 11:12 AM Narrative 02/22/2023 11:12 AM CDT Procedure Information DATE: 02/22/2023 12:51 AM EXAMINATION: Computed tomography (CT) of the abdomen and pelvis with contrast TECHNIQUE: CT of the abdomen and pelvis was performed following the uneventful administration of 100 mL of Isovue 370 intravenous contrast according to standard protocol. Clinical Information HISTORY: T81.49XA: Cellulitis, wound, post-operative COMPARISON: CT chest PE was abdomen pelvis dated 02/18/2023 Findings Lower Chest: Mild right basilar dependent atelectasis is present. Hepatobiliary: The liver enhances homogenously without focal mass/lesion. The surface contour is smooth. No solid hepatic observations are noted. The gallbladder is surgically absent. Mild central intrahepatic and extrahepatic biliary dilatation favors reservoir effect in a postcholecystectomy state. Pancreas: Normal. Spleen: Normal. Kidneys: There will 0.6 cm interpolar cyst is seen in the right kidney. Otherwise the kidneys are normal. Adrenals: Normal. Retroperitoneum: Normal. Gastrointestinal: Imaged esophagus and stomach are normal. No bowel obstruction is noted. Colonic diverticulosis without evidence of acute diverticulitis is seen. Mesentery: Status post mesh ventral hernia repair. No mesenteric or retroperitoneal lymphadenopathy is noted. Pelvic Structures: Normal. Vasculature: Scattered atherosclerotic vasculature changes. Bones: Bilateral sacroiliac sclerosis is noted. No acute osseous abnormality. No lytic or blastic lesions. Soft tissues: Redemonstrated postoperative changes from spinal cord stimulator implantation along the left flank/lower back. Intact leads in course through the right lateral midline and superiorly entering the spinal canal at the mid thoracic level. The tip termination is not visualized on this exam. There is a 2.3 x 7.4 cm partially loculated fluid collection along the spinal cord stimulator lead insertion point/surgical bed (series 3 image 73). This is located in the right lower flank/lower back. Internal components measure simple fluid in attenuation. There is no thick rim or peripheral enhancement suggest superimposed infection. There is resolution of internal gas component in comparison to prior exam from 02/10/2023. Minimal fat stranding is noted. Procedure Note Selvin Baron MD - 02/22/2023 Procedure Information DATE: 02/22/2023 12:51 AM EXAMINATION: Computed tomography (CT) of the abdomen and pelvis with contrast TECHNIQUE: CT of the abdomen and pelvis was performed following the uneventful administration of 100 mL of Isovue 370 intravenous contrast according to standard protocol. Clinical Information HISTORY: T81.49XA: Cellulitis, wound, post-operative COMPARISON: CT chest PE was abdomen pelvis dated 02/18/2023 Findings Lower Chest: Mild right basilar dependent atelectasis is present. Hepatobiliary: The liver enhances homogenously without focal mass/lesion. The surface contour is smooth. No solid hepatic observations are noted. Thegallbladder is surgically absent. Mild central intrahepatic and extrahepatic biliary dilatation favors reservoir effect in a postcholecystectomy state. Pancreas: Normal. Spleen: Normal. Kidneys: There will 0.6 cm interpolar cyst is seen in the right kidney. Otherwise the kidneys are normal. Adrenals: Normal. Retroperitoneum: Normal. Gastrointestinal: Imaged esophagus and stomach are normal. No bowel obstruction is noted. Colonic diverticulosis without evidence of acute diverticulitis is seen. Mesentery: Status post mesh ventral hernia repair. No mesenteric or retroperitoneal lymphadenopathy is noted. Pelvic Structures: Normal. Vasculature: Scattered atherosclerotic vasculature changes. Bones: Bilateral sacroiliac sclerosis is noted. No acute osseous abnormality.No lytic or blastic lesions. Soft tissues: Redemonstrated postoperative changes from spinal cord stimulator implantation along the left flank/lower back. Intact leads in course through the right lateral midline and superiorly entering the spinalcanal at the mid thoracic level. The tip termination is not visualized on this exam. There is a 2.3 x 7.4 cm partially loculated fluid collection along the spinal cord stimulator lead insertion point/surgical bed (series 3 image 73). This is located in the right lower flank/lower back. Internal components measure simple fluid in attenuation. There is no thick rim or peripheral enhancement suggest superimposed infection. There isresolution of internal gas component in comparison to prior exam from 02/10/2023. Minimal fat stranding is noted. Impression: 1.Postoperative changes from spinal cord stimulator implantation with generator in the left lower back/flank and intact leads coursing through the level of the imaged mid thoracic spine. 2.Small fluid collection in the right lower back/flank at the site oflead insertion (series 3 image 73) which measures simple fluid in attenuationin lacks peripheral enhancement. Findings may represent a smallpostoperative seroma. No discrete evidence of superimposed infection at this time, however developing abscess cannot be excluded. Correlation with physical exam is recommended. Of note, gas within this collection has resolvedsince the prior examination dated 02/10/2023. 3.Otherwise, no acute process in the abdomen or pelvis. Report drafted by Edgar Gonzales (resident) I, SELVIN BARON MD have personally reviewed and interpreted this examination/study. > Interpreting Provider: SELVIN BARON MD on 02/22/2023 11:12 AM Berenice Hawkins MD CT ORDERABLES * CULTURE BLOOD (02/21/2023 8:35 PM CDT) Only the most recent of10 resultswithin the time period is included. Pathologist [facility] Culture No growth day 5 TERRANCE 02/26/2023 10:02 PM AUTOMATED ACCESS SYSTEMS TECHNICIAN [facility] MICROBIOLOGY Blood PERIPHERAL BLOOD / Unknown Venipuncture / Unknown 02/21/2023 8:35 PM CDT 02/21/2023 8:38 PM CDT Berenice Hawkins MD LAB - MICROBIOLOGY O RDERABLES [facility] MICROBIOLOGY [address] [place] [address], [facility] [phone] * LACTIC ACID BLOOD REFLEX TO REPEAT (02/21/2023 6:30 PM CDT) Pathologist [facility] Lactic Acid-Stat 1.8 <=2.0 mmol/L 02/21/2023 6:56 PM CDT [facility] Blood BLOOD SPECIMEN / Unknown Venipuncture / Unknown 02/21/2023 6:30 PM CDT 02/21/2023 6:35 PM CDT Berenice Hawkins MD LAB - CHEMISTRY [facility]EL SPE[facility] [address] [place] [id number], [place] [phone] * HEPATITIS C AB SCREEN RFLX NAAT QUANT (02/21/2023 6:30 PM CDT) Hepatitis C Antibody Non-react hugh Non-reac tive 02/21/2023 7:32 PM CDT [facility] Comment:Hepatitis C Antibody screen indicates [...] Solitario MD LAB - CHEMISTRY ANGEL SPEARS [facility] [address] [place] [id number], [facility] [phone] * CARDIAC RHYTHM STRIP ORDER (02/20/2023 5:39 PM CDT) Only the most recent of2 resultswithin the time period is included. Narrative 02/20/2023 5:39 PM CDT Ordered by an unspecified provider. Scanned Document CARDIAC SERVICES ORD ERABLES * CT CHEST PE W ABD PELVIS W CONT (02/18/2023 4:01 AM CDT) Anatomical Region Laterality Modality Chest, Abdomen, Pelvis Computed Tomography 02/18/2023 4:08 AM CDT Impressions 02/18/2023 8:48 AM CDT Impression: 1.No evidence of pulmonary embolism. 2.Mild dependent atelectasis. 3.No acute process identified in the abdomen or pelvis. 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 > Dictated by Alvarez Sanderson MD (radiology clerk). I, Vi Bell MD have personally reviewed and interpreted this examination/study. > Interpreting Provider: Vi Bell MD on 02/18/2023 8:48 AM Narrative 02/18/2023 8:48 AM CDT PROCEDURE: ??CT CHEST PE W ABD PELVIS W CONT, DATE/TIME OF EXAM: ??02/18/2023 4:04 AM, LOCATION ??[facility] INDICATION: G89.18: Post-op pain R07.9: Chest pain, unspecified type M54.9: Back pain, unspecified back location, unspecified back pain laterality, unspecified chronicity ADDITIONAL CLINICAL INFORMATION: Ordering Provider Reason For Exam: ??s/p surgery please eval for PE COMPARISON: None. TECHNIQUE: CT of the chest was performed following the uneventful administration of 75 mL of Isovue 370 intravenous contrast according to a pulmonary embolism protocol. CT of the abdomen and pelvis was also performed during the portal venous phase according to standard protocol. Multiplanar reconstructions were created. Findings: Chest: Study Quality This examination for the diagnosis of pulmonary embolism is adequate. Pulmonary Arteries: No evidence of acute pulmonary embolism. Thoracic Vasculature: No vascular abnormality is present. Lower Neck and Axillae: There is a 1.3 cm hypoattenuating right thyroid lobe nodule (series 5 image 20). Lungs: Mild bilateral dependent atelectasis is present. Previously seen sub-5 mm pulmonary nodules are not well seen on the current study. No pleural fluid or pneumothorax is present. There is an area of partial collapse of the upper trachea seen on series 7 image 10. Heart and Pericardium: The cardiac chambers are normal in size. No pericardial fluid or thickening is present. The coronary arteries are atherosclerotic. Mediastinum and Korin: There is a 1.1 cm short axis lymph node within the prevascular space (series 5 image 75). Other findings: None. Abdomen/pelvis: Liver: Normal. Gallbladder and Bile Ducts: The gallbladder is absent. There is mild enlargement of the common bile duct and mild intrahepatic biliary ductal dilatation, likely secondary to postcholecystectomy state. Spleen: Normal. Pancreas: Normal. Adrenals: Normal. Kidneys: There is a 1.7 cm hypoattenuating simple renal cyst within the superior pole of the right kidney. There are additional subcentimeter cysts within the right kidney, too small to characterize however likely represents atelectasis. There is no evidence of hydronephrosis or nephrolithiasis bilaterally. Gastrointestinal: The stomach and visualized loops of small bowel are unremarkable. Sigmoid colonic diverticulosis without evidence of diverticulitis is seen. The appendix is not seen; however, no inflammatory changes are seen in the right lower quadrant. Mesentery/Peritoneum/Retroperitoneum: No free intraperitoneal air. No free fluid in the abdomen or pelvis. Bladder: Normal. Reproductive Organs: The uterus is normal. Abdominal Vasculature: Atherosclerotic calcification of the aorta and its branch vessels. Bones: Bone windows demonstrate no suspicious lytic or blastic lesions. A spinal cord stimulator is present along the posterior aspect of the central canal terminating at the level of the T7 vertebral body. There are associated laminectomies T7 and T8. Advanced degenerative changes are present in the bilateral sacroiliac joints with associated sclerosis. Soft tissues: Postsurgical changes of a ventral hernia repair are present within the anterior abdominal wall. A spinal cord stimulator pack is present within the posterior left gluteal soft tissues. Postprocedural changes are present within the right superior gluteal soft tissues with associated mild subcutaneous edema and gas present. Procedure Note Vi Bell MD - 02/18/2023 PROCEDURE: CT CHEST PE W ABD PELVIS W CONT, DATE/TIME OF EXAM:02/18/2023 4:04 AM, LOCATION [facility] INDICATION: G89.18: Post-op pain R07.9: Chest pain, unspecified type M54.9: Back pain, unspecified back location, unspecified back pain laterality, unspecified chronicity ADDITIONAL CLINICAL INFORMATION: Ordering Provider Reason For Exam: s/p surgery please eval for PE COMPARISON: None. TECHNIQUE: CT of the chest was performed following the uneventful administration of 75 mL of Isovue 370 intravenous contrast according toa pulmonary embolism protocol. CT of the abdomen and pelvis was also performed during the portal venous phase according to standard protocol. Multiplanar reconstructions were created. Findings: Chest: Study Quality This examination for the diagnosis of pulmonary embolism is adequate. Pulmonary Arteries: No evidence of acute pulmonary embolism. Thoracic Vasculature: No vascular abnormality is present. Lower Neck and Axillae: There is a 1.3 cm hypoattenuating right thyroid lobe nodule (series 5image 20). Lungs: Mild bilateral dependent atelectasis is present. Previously seen sub-5mm pulmonary nodules are not well seen on the current study. No pleuralfluid or pneumothorax is present. There is an area of partial collapse of the upper trachea seen on series7 image 10. Heart and Pericardium: The cardiac chambers are normal in size. No pericardial fluid orthickening is present. The coronary arteries are atherosclerotic. Mediastinum and Korin: There is a 1.1 cm short axis lymph node within the prevascular space (series 5 image 75). Other findings: None. Abdomen/pelvis: Liver: Normal. Gallbladder and Bile Ducts: The gallbladder is absent. There is mild enlargement of the common bile duct and mild intrahepatic biliary ductal dilatation, likely secondaryto postcholecystectomy state. Spleen: Normal. Pancreas: Normal. Adrenals: Normal. Kidneys: There is a 1.7 cm hypoattenuating simple renal cyst within the superior pole of the right kidney. There are additional subcentimeter cystswithin the right kidney, too small to characterize however likely represents atelectasis. There is no evidence of hydronephrosis or nephrolithiasis bilaterally. Gastrointestinal: The stomach and visualized loops of small bowel are unremarkable.Sigmoid colonic diverticulosis without evidence of diverticulitis is seen. The appendix is not seen; however, no inflammatory changes are seen in the right lower quadrant. Mesentery/Peritoneum/Retroperitoneum: No free intraperitoneal air. No free fluid in the abdomen or pelvis. Bladder: Normal. Reproductive Organs: The uterus is normal. Abdominal Vasculature: Atherosclerotic calcification of the aorta and its branch vessels. Bones: Bone windows demonstrate no suspicious lytic or blastic lesions. Aspinal cord stimulator is present along the posterior aspect of the centralcanal terminating at the level of the T7 vertebral body. There are associated laminectomies T7 and T8. Advanced degenerative changes are present inthe bilateral sacroiliac joints with associated sclerosis. Soft tissues: Postsurgical changes of a ventral hernia repair are present within the anterior abdominal wall. A spinal cord stimulator pack is present within the posterior leftgluteal soft tissues. Postprocedural changes are present within the rightsuperior gluteal soft tissues with associated mild subcutaneous edema and gas present. Impression: 1.No evidence of pulmonary embolism. 2.Mild dependent atelectasis. 3.No acute process identified in the abdomen or pelvis. 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 > Dictated by Alvarez Sanderson MD (radiology clerk). I, Vi Bell MD have personally reviewed and interpreted this examination/study. > Interpreting Provider: Vi Bell MD on 02/18/2023 8:48 AM Cal Alicea MD CT ORDERABLES * ETT LINE PERFORMABLE (02/16/2023 1:32 PM CDT) Narrative Cordelia Barrientos APRN-CRNA - 02/16/2023 1:32 PM CDT Cordelia Barrientos APRN-CRNA ? 02/16/2023 ??1:34 PM Endotracheal Tube Placement: ? Patient Location: OR. Intubation Event Date/Time: ??02/16/2023 1:21 PM Procedure: intubation ([id number]). Procedure Section: ?? Sedation: under general anesthesia. Indications for Airway Management: ??anesthesia Induction: rapid sequence Patient Position: ??sniffing, ramp/troop pillow and supine Mask Ventilation: not attempted. Blade Type: Video (Glidescope) Blade Size: 3 Laryngoscopy View: grade 1 (full cords) Intubation Adjuncts: stylet and video laryngoscope Placement: oral Tube type: cuff - inflated Tube Size (MM): 7 Depth of Insertion (CM): 21 Measured From: teeth Cuff Inflated With: air Number of Attempts: 1. Placement Verified By: direct visualization, CO2 detector, bilateral breath sounds, chest x-ray and CO2 monitor CXR Findings: ETT in proper place. Tube secured with: ??adhesive tape. Dentition unchanged? ??Yes Difficult Airway? ??No. Procedure Start Time: 02/16/2023 1:21 PM. Procedure End Time: 02/16/2023 1:22 PM. Procedure Total Time: 1 ??minutes. Staff Section ? Anesthesia Provider: Kellie Toscano, Performed the procedure ? Provider #1: Cordelia Barrientos APRN-CRNA. Dillon Zamora DO GENERAL ANESTHESIA O RDERABLES * (ABNORMAL) PT-INR (02/16/2023 12:20 PM CDT) Only the most recent of2 resultswithin the time period is included. PT 15.0(H) 12.1 - 14.8 sec 02/16/2023 1:14 PM CDT [facility] INR 1.2(H) 0.9 - 1.1 02/16/2023 1:14 PM CDT [facility] Blood BLOOD SPECIMEN / Unknown Venipuncture / Unknown 02/16/2023 12:20 PM CDT 02/16/2023 12:30 PM CDT Narrative [facility] - 02/16/2023 1:14 PM CDT Conventional Warfarin Anticoagulant Therapy: INR Reference Range: ??2.0-3.0 Intensive Warfarin Anticoagulant Therapy: INR Reference Range: ? 2.5-3.5 Melly JEAN BAPTISTE LAB - COAGULATIO N ORDERABLES Performing Organization Address [facility] Co de Phone Number [facility] [address] [place] [phone] * PTT (02/06/2023 1:30 PM CDT) [facility] PTT 35.4 23.0 - 38.4 sec 02/06/2023 1:50 PM CDT [facility] Blood BLOOD SPECIMEN / Unknown Lab Venipuncture / Unknown 02/06/2023 1:30 PM CDT 02/06/2023 1:33 PM CDT Narrative [facility] - 02/06/2023 1:50 PM CDT Heparin Therapeutic Range for PTT: ??69.0 - 110.0 seconds. Maxi Gregg MD LAB - COAGULATIO N ORDERABLES Performing Organization Address [facility] Co de Phone Number [facility] [address] [place] [phone] * CT ANGIO BRAIN AND NECK (12/26/2022 9:42 AM CDT) Anatomical Region Laterality Modality Head Computed Tomogra phy 12/26/2022 11:4 4 PM CDT Impressions 12/26/2022 11:59 PM CDT IMPRESSION: 1. No acute intracranial hemorrhage. 2. No large arterial occlusions or significant stenoses identified in the head or neck. 3. A 1.8 cm nodule in the right lobe of the thyroid gland. Recommend a dedicated thyroid sonogram to further evaluate. > Interpreting Provider: Bonifacio Carrillo MD on 12/26/2022 11:59 PM Narrative 12/26/2022 11:59 PM CDT PROCEDURE: ??CT ANGIO BRAIN AND NECK, DATE/TIME OF EXAM: ??12/26/2022 9:43 AM, LOCATION ??[facility] INDICATION: R51.9: Acute intractable headache, unspecified headache type R29.898: Right hand weakness ADDITIONAL CLINICAL INFORMATION: Ordering Provider Reason For Exam: ??stenosis causing R arm weakness Technologist Note: Additional: EXAMINATION: 1. Computed tomographic (CT) angiography of the head without and with contrast 2. CT angiography of the neck with contrast TECHNIQUE: CT of the head was performed without contrast according to standard protocol. Then CT angiography of the head and neck was obtained after the uneventful administration of 75 mL Isovue-370 intravenous contrast. Three dimensional postprocessing was performed by the technologist and sent to the workstation for review. COMPARISON: No prior study is available for comparison at the time of this dictation. FINDINGS: Non-angiographic findings: No acute intracranial hemorrhage or intra- or extra-axial fluid collections are identified. There is mild cerebral volume loss with associated ex vacuo ventricular dilatation. The basal cisterns are patent. No mass effect or midline shift is seen. The carney-white matter differentiation is normal. Periventricular white matter hypoattenuation is a nonspecific finding that may be indicative of chronic small vessel ischemic disease. There is atherosclerotic calcification of the carotid siphons. ?? The visualized portions of the orbits, paranasal sinuses, and mastoids appear normal. No acute calvarial fracture is identified. There is a 1.8 cm nodule in the right lobe of thyroid gland. Mild multilevel degenerative disc and joint disease is noted. Angiographic findings: Neck: There is atherosclerotic disease of the aortic arch. The configuration of the brachiocephalic vessels is typical. The innominate artery and both subclavian arteries appear normal. The right common and internal carotid arteries as well as the right carotid bifurcation are patent. The left common and internal carotid arteries as well as the left carotid bifurcation are patent. The cervical vertebral arteries are patent. Head: The distal internal carotid arteries are patent. The anterior cerebral arteries ??are patent. The middle cerebral arteries ??are patent. The posterior cerebral arteries are patent. The distal vertebral arteries are patent. The basilar artery is patent patent. No aneurysms, spot sign, or signs of a high flow vascular malformation are identified. Procedure Note Bonifacio Carrillo MD - 12/27/2022 PROCEDURE: CT ANGIO BRAIN AND NECK, DATE/TIME OF EXAM: 12/26/2022 9:43AM, LOCATION [facility] INDICATION: R51.9: Acute intractable headache, unspecified headache type R29.898: Right hand weakness ADDITIONAL CLINICAL INFORMATION: Ordering Provider Reason For Exam: stenosis causing R arm weakness Technologist Note: Additional: EXAMINATION: 1. Computed tomographic (CT) angiography of the head without and with contrast 2. CT angiography of the neck with contrast TECHNIQUE: CT of the head was performed without contrast according to standard protocol. Then CT angiography of the head and neck was obtained after the uneventful administration of 75 mL Isovue-370 intravenous contrast. Three dimensional postprocessing was performed by the technologist and sent to the workstation for review. COMPARISON: No prior study is available for comparison at the time ofthis dictation. FINDINGS: Non-angiographic findings: No acute intracranial hemorrhage or intra- or extra-axial fluidcollections are identified. There is mild cerebral volume loss with associated exvacuo ventricular dilatation. The basal cisterns are patent. No mass effect or midline shift is seen. The carney-white matter differentiation is normal. Periventricular white matter hypoattenuation is a nonspecific findingthat may be indicative of chronic small vessel ischemic disease. There is atherosclerotic calcification of the carotid siphons. The visualized portions of the orbits, paranasal sinuses, and mastoids appear normal. No acute calvarial fracture is identified. There is a 1.8 cm nodule in the right lobe of thyroid gland. Mild multilevel degenerative disc and joint disease is noted. Angiographic findings: Neck: There is atherosclerotic disease of the aortic arch. The configurationof the brachiocephalic vessels is typical. The innominate artery and both subclavian arteries appear normal. The right common and internal carotid arteries as well as the right carotid bifurcation are patent. The left common and internal carotid arteries as well as the left carotid bifurcation are patent. The cervical vertebral arteries are patent. Head: The distal internal carotid arteries are patent. The anterior cerebral arteries are patent. The middle cerebral arteries are patent. The posterior cerebral arteries are patent. The distal vertebral arteriesare patent. The basilar artery is patent patent. No aneurysms, spot sign, or signs of a high flow vascular malformation are identified. IMPRESSION: 1. No acute intracranial hemorrhage. 2. No large arterial occlusions or significant stenoses identified inthe head or neck. 3. A 1.8 cm nodule in the right lobe of the thyroid gland. Recommend a dedicated thyroid sonogram to further evaluate. > Interpreting Provider: Bonifacio Carrillo MD on 12/26/2022 11:59 PM Jerrod Rodriguez MD CT ORDERABLES * (ABNORMAL) HEMOGLOBIN A1C (12/25/2022 3:56 AM CDT) Only the most recent of2 resultswithin the time period is included. Hemoglobin A1c 8.6(H) <=5.6 % 12/25/2022 2:47 PM CDT [facility] Estimated Average Glucose 200 mg/dL 12/25/2022 2:47 PM CDT [facility] Comment: HbA1c Interpretation: Normal : < 5.7% Pre-diabetes: 5.7-6.4% Diabetes: Equal to or greater than 6.5% Test results diagnostic of diabetes should be repeated for confirmation. Treatment target values recommended by ADA and other clinical organizations should be used to evaluate metabolic control in patients. Reference: [place] [employer], Standards of Care in Diabetes [...] Rodriguez MD LAB - CHEMISTR Y ORDERABLES [facility] [address] [address], [facility] [phone] * [place] CYSTOURETHROSCOPY (06/08/2022 2:18 PM AUTOMATED ACCESS SYSTEMS TECHNICIAN) Narrative Opal Orellana APRN-CNP - 06/08/2022 2:18 PM AUTOMATED ACCESS SYSTEMS TECHNICIAN Opal Orellana APRN-CNP ? 06/09/2022 ??9:33 AM Cystoscopy procedure note Indication for Procedure: microhematuria Description: Pt placed on the procedure table in the supine/lithotomy position. she ??was prepped/draped in standard fashion. ??Pt correctly identified and time out performed. ??A flexible cystoscope was introduced per urethra withthe following findings. Urethra: ??Normal caliber, no stricture. ??No masses. ??Urethral sphincter with good coaptation Bladder neck patent without contracture Trigone - UO's orthotopic bilaterally. ??Clear efflux seen from both ureteral orifices. Mucosa normal without lesion Bladder - normal mucosa without tumor/stone/erythema. ??No FB present. ??No trabeculation. ??No cellules or diverticula. ??No fistula. ??Scope was retroflexed to assess entire surface of bladder. IMPRESSION: ??Normal exam of the bladder PLAN: follow up as scheduled, will treat for IC at this time. Will review the IC diet. ITA Jones Opal JEAN BAPTISTE PROCEDURE/MIN OR SURGICAL ORDERABLES * URINALYSIS AUTO - POINT OF CARE (AMB) [facility] (06/08/2022) Only the most recent of3 resultswithin the time period is included. Glucose UA 2+ Bilirubin UA POCT - Ketones UA POCT - Specific [place] UA 1.030 Blood Urine POCT 1+ pH UA 5.5 Protein UA +- Urobilinogen UA - Nitrite UA - WBC UA - Urine URINE / Unknown 06/08/2022 Opal SANTIAGOFACTORY CLERK LAB - POINT O F CARE ORDERABLES * WA MSR PVR U&/BLADD CAPCTY US NON (04/27/2022 1:24 PM AUTOMATED ACCESS SYSTEMS TECHNICIAN) Narrative Brigitte Gee MA - 04/27/2022 1:24 PM AUTOMATED ACCESS SYSTEMS TECHNICIAN Brigitte Gee MA ? 04/27/2022 ??1:24 PM Bladder scan completed. 38ml post void residual. Opal JEAN BAPTISTE PROCEDURE/MIN OR SURGICAL ORDERABLES * PROC ENDOSCOPY-LARYNX (12/14/2021 8:58 AM CDT) Narrative David Cuevas MD - 12/14/2021 8:58 AM CDT David Cuevas MD ? 12/14/2021 ??9:28 AM Procedure Note Anesthesia: Lidocaine 2% and Nadir-Synephrine 1/2% Endoscopy Type: ??Flexible Umlsr-Jlhbbttycmjkpe-Uhhxbbrqkcee Procedure Details: Informed consent was obtained. ??The patient was placed in the sitting position. ??After topical anesthesia and decongestion, the 4 mm laryngoscope was passed. ??The nasal cavities, nasopharynx, oropharynx, hypopharynx, and larynx were all examined. ??Vocal cords were examined during respiration and phonation. ??The following findings were noted: ??Normal nasal cavity. ??Adenoids obstructing 5% of postnasal space (normal less than 40%). ?? Tonsils similarly large from above, otherwise normal nasopharynx, oropharynx, hypopharynx, and larynx. ??Good TVC mobility bilaterally. ?? The patient tolerated procedure well. Complications: None David Cuevas MD PROCEDURE/MINOR S URGICAL ORDERABLES * LAB RESULTS ORDER (12/07/2021) Only the most recent of2 resultswithin the time period is included. 12/07/2021 Narrative 12/07/2021 Ordered by an unspecified provider. Scanned Document LAB - THERAPEUTIC DR ISAIAH MONITORING ORDERABLES * (ABNORMAL) URINALYSIS W/MICROSCOPIC REFLEX TO CULTURE (12/06/2021 1:29 PM CDT) Color UA Yellow Straw, Yellow 12/06/2021 3:05 PM CDT [facility] Clarity UA Clear Clear 12/06/2021 3:05 PM CDT [facility] Specific [place] UA 1.016 1.005 - 1.030 12/06/2021 3:05 PM T [facility] pH UA 5.0 5.0 - 8.0 pH 12/06/2021 3:05 PM T [facility] Protein UA Negative Negative 12/06/2021 3:05 PM [facility] Glucose UA 1+(A) Negative 12/06/2021 3:05 PM [facility] Ketone UA Negative Negative 12/06/2021 3:05 PM [facility] Bilirubin UA Negative Negative 12/06/2021 3:05 PM [facility] Blood UA 1+(A) Negative 12/06/2021 3:05 PM [facility] Nitrite UA Negative Negative 12/06/2021 3:05 PM [facility] Leukocyte Esterase Negative Negative 12/06/2021 3:05 PM [facility] Urobilinogen UA Negative Negative mg/dL 12/06/2021 3:05 PM [facility] RBC UA 0-2 None Seen, 0-2, 3-5 /HPF 12/06/2021 3:05 PM [facility] WBC UA 0-5 None Seen, 0-5 /HPF 12/06/2021 3:05 PM [facility] Squamous Epithelial Cells UA None Seen None Seen, 0-2, 3-5 /HPF 12/06/2021 3:05 PM [facility] Mucus UA 1+ /LPF 12/06/2021 3:05 PM [facility] Urine URINE SPECIMEN OBTAINED BY CLEAN CATCH PROCEDURE / Unknown Collection / Unknown 12/06/2021 1:29 PM CDT 12/06/2021 2:47 PM CDT Narrative [facility] - 12/06/2021 3:05 PM CDT Culture Not Indicated Jazmyne Torres MD LAB - URI NALYSIS ORDERABLES [facility] [address] [place] [id number], [facility] [phone] * XR HUMERUS RIGHT 2VW OR MORE (12/02/2021 3:30 PM CDT) Anatomical Region Laterality Modality Upper Extremity Radiographic Lizeth ging 12/02/2021 3:30 PM CDT Narrative 12/02/2021 3:46 PM CDT PROCEDURE: ??XR HUMERUS RIGHT 2VW, DATE/TIME OF EXAM: ??12/02/2021 3:31 PM, LOCATION ??[facility] INDICATION: T82.9XXA: Central line complication, initial encounter ADDITIONAL CLINICAL INFORMATION: Ordering Provider Reason For Exam: ??midline placement COMPARISON: None. FINDINGS/IMPRESSION: Right basilic vein approach peripherally inserted central catheter is partially visualized. There is kinking of the catheter near the insertion site. The remainder of the catheter is not well-visualized due to overlying soft tissue and osseous structures. No acute fracture or dislocation. Report dictated by Miracle Moody MD (radiology clerk). Raquel Perez MD have personally reviewed and interpreted this examination/study. > Interpreting Provider: Raquel Cedillo MD on 12/02/2021 3:46 PM Procedure Note Raquel Cedillo MD - 12/02/2021 PROCEDURE: XR HUMERUS RIGHT 2VW, DATE/TIME OF EXAM: 12/02/2021 3:31 PM, LOCATION [facility] INDICATION: T82.9XXA: Central line complication, initial encounter ADDITIONAL CLINICAL INFORMATION: Ordering Provider Reason For Exam: midline placement COMPARISON: None. FINDINGS/IMPRESSION: Right basilic vein approach peripherally inserted central catheter is partially visualized. There is kinking of the catheter near theinsertion site. The remainder of the catheter is not well-visualized due tooverlying soft tissue and osseous structures. No acute fracture or dislocation. Report dictated by Miracle Moody MD (radiology clerk). Raquel Perez MD have personally reviewed and interpreted this examination/study. > Interpreting Provider: Raquel Cedillo MD on 12/02/2021 3:46 PM Hannah Martínez PA-C DIAGNOSTIC IMAGING O RDERABLES * LIPASE BLOOD (12/02/2021 12:31 PM CDT) Only the most recent of2 resultswithin the time period is included. Lipase 19 8 - 78 U/L 12/02/2021 1:25 PM CDT [facility] Blood BLOOD SPECIMEN / Unknown Venipuncture / Unknown 12/02/2021 12:31 PM CDT 12/02/2021 12:59 PM CDT Aaron Matias PA-C LAB - CHEMISTRY ANGEL SPEARS Performing Organization Address [facility]/ZIP Co de Phone Number [address] [address], [facility] [phone] * (ABNORMAL) PTT [facility] (11/13/2021 1:07 AM CDT) Only the most recent of7 resultswithin the time period is included. APTT 77.2(H) 23.0 - 38.4 Seconds 11/13/2021 1:33 AM CDT [facility] Comment:Suggested therapeuti c range for full dose I.V. unfractionated heparin therapy for venous thromboembolism is 71 to 109 seconds. Blood BLOOD SPECIMEN / Unknown Venipuncture / Unknown 11/13/2021 1:07 AM CDT 11/13/2021 1:11 AM CDT Tima Cardenas MD LAB - COAGULATI ON ORDERABLES Performing Organization Address [facility]/ZIP Co de Phone Number [address] [address], [facility] [phone] * ECHO COMPLETE (11/12/2021 4:10 PM CDT) Anatomical Region Laterality Modality Chest Echo 11/12/2021 3:25 PM CDT Narrative Procedure Note Tamika Cowan MD - 11/12/2021 Aly Perkins III, MD ECHOCARDIOGRAPHY RADIANT * (ABNORMAL) PROCALCITONIN LEVEL (11/12/2021 12:33 PM CDT) PROCALCITONIN 0.20(H) <=0.10 ng/mL 11/12/2021 3:30 PM CDT [facility] Blood BLOOD SPECIMEN / Unknown Venipuncture / Unknown 11/12/2021 12:33 PM CDT 11/12/2021 12:42 PM CDT Narrative [facility] - 11/12/2021 3:30 PM CDT The change in procalcitonin (PCT) concentration over time provides support in decision making on antibiotic discontinuation for suspected or confirmed septic patients. Follow-up samples should be tested once every 1-2 days based upon physician discretion taking into account the patient? s evolution and progress. Consider discontinuation of ??antibiotic therapy ??if the PCT current ??is <= 0.5 ng/mL or if the delta PCT is > 80%. ??Duration of antibiotics should not be determined solely on PCT; established guidelines for the indication should be followed. ? PCT peak: ??Highest observed PCT concentration ? PCT current: Most recent PCT concentration ? Calculate delta PCT using the following equation: ?Delta PCT ??= ?? PCT Peak ? PCT current ??X 100% ? PCT Peak The Change in Procalcitonin Calculator is available at [email or web address] Modular ?? If clinical picture has not improved and PCT remains high, reevaluate and consider treatment failure or other causes. Aly Perkins III, MD LAB - CHEMISTRY O RDERABLES [facility] [address] [place] [address], [facility] [phone] * VAS RIGHT VENOUS DUPLEX UE (11/12/2021 10:11 AM CDT) Anatomical Region Laterality Modality Upper Extremity Intravascular Ul trasound 11/12/2021 9:37 AM CDT Narrative Procedure Note Justen Ba MD - 11/13/2021 Roger Snowden MD VASCULAR LAB ORDERAB LES * CT ANGIO CHEST PULM EMBOLISM (11/12/2021 12:53 AM CDT) Anatomical Region Laterality Modality Chest Computed Tomogra phy 11/12/2021 12:5 9 AM CDT Impressions 11/12/2021 8:59 AM CDT Impression: 1.No pulmonary embolism. Apparent ill-defined high density filling defect in the left upper lobe pulmonary artery is likely artifactual. 2.Multiple solid nodules in the left lower lobe nodule to 4 mm are indeterminant and new since 04/20/2017, possibly representing infectious etiology. 3.Trace left pleural effusion. 4.Multiple bilateral subcentimeter, partially calcified thyroid nodules. Consider further evaluation with nonemergent ultrasound. 5.Moderate soft tissue thickening along the spinal stimulator wires may represent an infection. There is a focal soft tissue collection that measures up to 2.3 cm and there is a collection near the laminectomy site which could be postsurgical with possible superinfection. Findings were discussed with Dr. Norman by Dr. Lopez at 1:41 AM on 11/12/2021 via telephone with readback comprehension and verification. The final report was discussed over the phone with Dr. Perkins by Dr. Bell on 11/12/2021, 8:58 AM with readback confirmation. Report drafted by Amador Lopez (resident) I, Dr. VI BELL have personally reviewed and interpreted this examination/study. This report was electronically signed by VI BELL ??on 11/12/2021 8:59 AM . Narrative 11/12/2021 8:59 AM CDT Procedure Information DATE: 11/12/2021 12:54 AM EXAMINATION: Computed tomography (CT) of the chest with contrast TECHNIQUE: CT of the chest was performed following the uneventful administration of 100 mL of Isovue 370 intravenous contrast according to a pulmonary embolism protocol. Multiplanar reconstructions were created. Clinical Information HISTORY: R07.9: Chest pain, unspecified type R06.02: SOB (shortness of breath) COMPARISON: None. Findings Study Quality This examination for the diagnosis of pulmonary embolism is: suboptimal. Lines/Tubes: None. Pulmonary Vessels: There is mild motion artifact Eccentric apparent ill-defined peripheral filling defect in the left upper lobar artery (series 5, image 78) is favored to be artifactual or may represent chronic pulmonary embolism. Lower neck and axillae: Multiple bilateral subcentimeter, partially calcified thyroid nodules. Mediastinum and Korin: 1 cm prevascular lymph node (series 5, image 74). Multiple other subcentimeter lymph nodes. Heart and Pericardium: The cardiac chambers are normal in size. No pericardial fluid or thickening is present. Mitral annular calcifications are seen. Lung Parenchyma, Airways, and Pleural Spaces: Subpleural opacities along the left lingula, some of which appear nodular. Multiple solid nodules in the left lower lobe nodule to 4 mm (series 6, images 60-61). Trace left pleural effusion. New loculated foci of gas in the medial left lower lobe (series 6, image 59) may represent a new pneumatocele. Bones and Soft Tissue: Postoperative changes of bilateral laminectomies at T7-T8. Partially visualized spinal stimulator wires terminating in the posterior epidural space at T7-T8. There is moderate soft tissue thickening along the spinal stimulator wires in the soft tissues. There is a focal collection at the soft tissues adjacent to the spinal stimulator in the laminectomy site seen on series 564 measuring 3.3 x 2.8 cm. Upper Abdomen: Gallbladder is surgically absent. A 1.4 cm hypodense lesion in the right interpolar region likely represents a cyst (series 5, image 274). Procedure Note Vi Bell MD - 11/12/2021 Procedure Information DATE: 11/12/2021 12:54 AM EXAMINATION: Computed tomography (CT) of the chest with contrast TECHNIQUE: CT of the chest was performed following the uneventful administration of 100 mL of Isovue 370 intravenous contrast according to a pulmonary embolism protocol. Multiplanar reconstructions were created. Clinical Information HISTORY: R07.9: Chest pain, unspecified type R06.02: SOB (shortness of breath) COMPARISON: None. Findings Study Quality This examination for the diagnosis of pulmonary embolism is: suboptimal. Lines/Tubes: None. Pulmonary Vessels: There is mild motion artifact Eccentric apparent ill-defined peripheral filling defect in the left upper lobar artery (series 5, image 78) is favored to be artifactual or may represent chronic pulmonary embolism. Lower neck and axillae: Multiple bilateral subcentimeter, partially calcified thyroid nodules. Mediastinum and Korin: 1 cm prevascular lymph node (series 5, image 74). Multiple other subcentimeter lymph nodes. Heart and Pericardium: The cardiac chambers are normal in size. No pericardial fluid or thickening is present. Mitral annular calcifications are seen. Lung Parenchyma, Airways, and Pleural Spaces: Subpleural opacities along the left lingula, some of which appearnodular. Multiple solid nodules in the left lower lobe nodule to 4 mm (series 6, images 60-61). Trace left pleural effusion. New loculated foci of gas in the medialleft lower lobe (series 6, image 59) may represent a new pneumatocele. Bones and Soft Tissue: Postoperative changes of bilateral laminectomies at T7-T8. Partially visualized spinal stimulator wires terminating in the posterior epidural space at T7-T8. There is moderate soft tissue thickening along thespinal stimulator wires in the soft tissues. There is a focal collection at the soft tissues adjacent to the spinal stimulator in the laminectomy site seen on series 564 measuring 3.3 x 2.8 cm. Upper Abdomen: Gallbladder is surgically absent. A 1.4 cm hypodense lesion in the right interpolar region likely represents a cyst (series 5, image 274). Impression: 1.No pulmonary embolism. Apparent ill-defined high density fillingdefect in the left upper lobe pulmonary artery is likely artifactual. 2.Multiple solid nodules in the left lower lobe nodule to 4 mm are indeterminant and new since 04/20/2017, possibly representing infectious etiology. 3.Trace left pleural effusion. 4.Multiple bilateral subcentimeter, partially calcified thyroid nodules. Consider further evaluation with nonemergent ultrasound. 5.Moderate soft tissue thickening along the spinal stimulator wires may represent an infection. There is a focal soft tissue collection that measures up to 2.3 cm and there is a collection near the laminectomysite which could be postsurgical with possible superinfection. Findings were discussed with Dr. Norman by Dr. Lopez at 1:41 AM on11/12/2021 via telephone with readback comprehension and verification. The final report was discussed over the phone with Dr. Perkins by on 11/12/2021, 8:58 AM with readback confirmation. Report drafted by Amador Lopez (resident) I, Dr. VI BELL have personally reviewed and interpreted this examination/study. This report was electronically signed by VI BELL on 11/12/2021 8:59AM . Roger Snowden MD CT ORDERABLES * TROPONIN I (11/11/2021 10:38 PM CDT) Only the most recent of2 resultswithin the time period is included. Troponin I <0.010 <0.032 ng/mL 11/11/2021 11:06 PM CDT [facility] Blood BLOOD SPECIMEN / Unknown Venipuncture / Unknown 11/11/2021 10:38 PM CDT 11/11/2021 10:43 PM CDT Sisi Ricks PA-C LAB - CHEMISTRY OR DERABLES Performing Organization Address City/State/[facility] Co de Phone Number [address] [address], [facility] [phone] * XR CHEST 2VW (11/11/2021 5:26 PM CDT) Anatomical Region Laterality Modality Chest Radiographic Lizeth ging 11/11/2021 5:34 PM CDT Impressions 11/11/2021 11:57 PM CDT FINDINGS/IMPRESSION: Lines: *Right upper terminate PICC terminates in the SVC. *Electronic device superimposes thoracic spine with inferior approach lead. There is mild vascular congestion with bibasilar atelectasis. There is no focal consolidation, pleural effusion, or pneumothorax. The cardiomediastinal silhouette is normal. The visible bony thorax is intact. Report dictated by David Charlton MD, PhD (radiology clerk). I, Dr. VI BELL have personally reviewed and interpreted this examination/study. This report was electronically signed by VI BELL ??on 11/11/2021 11:57 PM . Narrative 11/11/2021 11:57 PM CDT EXAMINATION: XR CHEST 2VW, 11/11/2021 5:26 PM HISTORY: R07.9: Chest pain, unspecified type R06.02: SOB (shortness of breath) COMPARISON: Chest radiograph from 10/30/2021. Procedure Note Vi Bell MD - 11/12/2021 EXAMINATION: XR CHEST 2VW, 11/11/2021 5:26 PM HISTORY: R07.9: Chest pain, unspecified type R06.02: SOB (shortness of breath) COMPARISON: Chest radiograph from 10/30/2021. FINDINGS/IMPRESSION: Lines: *Right upper terminate PICC terminates in the SVC. *Electronic device superimposes thoracic spine with inferior approachlead. There is mild vascular congestion with bibasilar atelectasis. There isno focal consolidation, pleural effusion, or pneumothorax. The cardiomediastinal silhouette is normal. The visible bony thorax isintact. Report dictated by David Charlton MD, PhD (radiology clerk). I, Dr. VI BELL have personally reviewed and interpreted this examination/study. This report was electronically signed by VI BELL on 11/11/2021 11:57 PM . Sisi Ricks PA-C DIAGNOSTIC IMAGING ORDERABLES * VAS BILATERAL VENOUS DUPLEX LE (11/05/2021 4:27 PM CDT) Anatomical Region Laterality Modality Lower Extremity Intravascular Ul trasound 11/05/2021 4:06 PM CDT Narrative Procedure Note Arden De Jesus MD - 11/06/2021 Maxi Gregg MD VASCULAR LAB ORD ERABLES * IR PICC LINE INSERT (11/05/2021 3:03 PM CDT) Anatomical Region Laterality Modality Chest, Upper Extremity X-Ray Ang iography 11/05/2021 3:02 PM CDT Impressions 11/12/2021 12:02 PM CDT Impression: Successful placement of 39 cm 5 Monegasque dual-lumen power PICC via the right basilic vein with the tip at the cavo-atrial junction. Note: The catheter can be used now. Dr. Fitzgerald was present and performed/supervised the entire procedure. Dictated by Jovi Goode MD (radiology clerk) This report was approved ??by Jovi Goode ?? on 11/05/2021 3:06 PM . I, Dr. BAUDILIO FITZGERALD have personally reviewed and interpreted this examination/study. This report was electronically signed by BAUDILIO FITZGERALD ??on 11/12/2021 12:02 PM . Narrative 11/12/2021 12:02 PM CDT History: 66 year old female with postoperative infection requiring long term care pharmacist antibiotics. Operators: 1.Dr. Baudilio Fitzgerald, Attending Physician 2.Dr. Jovi Goode, Resident Physician 3. ??Cesar Hill MS4 Anesthesia: 1.Local anesthesia - 10 ml of 1% lidocaine Procedures: 1.Limited extremity ultrasound to assess vascular patency. 2.Ultrasound-guided access of the right basilic vein. 3.Fluoroscopy-guided placement of a peripherally inserted central catheter via the right basilic vein. Fluoroscopy time: 0.8 minutes Procedure in detail: The procedure, risks, benefits, and alternatives were explained to the patient in detail, and informed consent was obtained. The patient was placed supine on the angiography table. The right arm was prepped and draped in the usual sterile manner. Limited ultrasound of the right basilic vein demonstrated a patent and compressible vein. A carney scale image was documented. After administering 1% lidocaine for local anesthesia, the right basilic vein was accessed using a micropuncture needle. The needle entry was documented. A ??0.018-inch guidewire was then advanced centrally. A small dermatotomy was made at the puncture site, and a peel-away sheath was advanced into the vein. The PICC line was then introduced through the peel-away sheath and advanced to the right atrium near the cavoatrial junction under fluoroscopic guidance. It was flushed to assure patency. A final image confirmed proper position of the catheter tip at the cavoatrial junction. A sterile dressing was placed. The patient tolerated the procedure well and was transferred to the holding area in stable condition. There were no immediate complications associated with the procedure. Procedure Note Baudilio Fitzgerald MD - 11/12/2021 History: 66 year old female with postoperative infection requiring long term care pharmacist antibiotics. Operators: 1.Dr. Baudilio Fitzgerald, Attending Physician 2.Dr. Jovi Goode, Resident Physician 3. Cesar Hill MS4 Anesthesia: 1.Local anesthesia - 10 ml of 1% lidocaine Procedures: 1.Limited extremity ultrasound to assess vascular patency. 2.Ultrasound-guided access of the right basilic vein. 3.Fluoroscopy-guided placement of a peripherally inserted centralcatheter via the right basilic vein. Fluoroscopy time: 0.8 minutes Procedure in detail: The procedure, risks, benefits, and alternatives were explained to the patient in detail, and informed consent was obtained. The patient was placed supine on the angiography table. The right arm was prepped and draped in the usual sterile manner. Limited ultrasound of the right basilic vein demonstrated a patent and compressible vein. A carney scale image was documented. Afteradministering 1% lidocaine for local anesthesia, the right basilic vein was accessed using a micropuncture needle. The needle entry was documented. A 0.018-inch guidewire was then advanced centrally. A small dermatotomy was made at the puncture site, and a peel-away sheath was advanced into the vein. The PICC line was then introduced through the peel-away sheath and advanced to the right atrium near the cavoatrial junction under fluoroscopic guidance. It was flushed to assure patency. A final image confirmed proper position of the catheter tip at the cavoatrialjunction. A sterile dressing was placed. The patient tolerated the procedure well and was transferred to the holding area in stable condition. There were no immediate complications associated with the procedure. Impression: Successful placement of 39 cm 5 Monegasque dual-lumen power PICC via the right basilic vein with the tip at the cavo-atrial junction. Note: The catheter can be used now. Dr. Fitzgerald was present and performed/supervised the entireprocedure. Dictated by Jovi Goode MD (radiology clerk) This report was approved by Jovi Goode on 11/05/2021 3:06 PM . I, Dr. BAUDILIO FITZGERALD have personally reviewed and interpreted this examination/study. This report was electronically signed by BAUDILIO FITZGERALD on11/12/2021 12:02 PM . Maxi Gregg MD IR ORDERABLES * (ABNORMAL) D-DIMER (11/05/2021 1:50 PM CDT) [facility] D-Dimer Quantitative 1.28(H) <=0.50 mcg/mL FEU 11/05/2021 2:26 PM CDT [facility] Comment: In the absence of clinical symptoms, a value less than or equal to 0.5 mcg/mL FEU significantly decreases the probability of PE/DVT (negative predictive value >95%). 1 mcg/mL FEU = 1 Fibrinogen Equivalent Unit (approximates 0.5 mcg/ml of D- Dimer). ?ISTH DIAGNOSTIC SCORING SYSTEM FOR DIC ?Score ?0 ? 1 ? 2 ?3 ?? Platelet Count(x10^3/uL) ?> 100 ?? < 100 ?? < 50 ?N/A PT Prolongation above ? upper limit of normal ?0-3 ? 3-6 ? > 6 ?N/A range (seconds) ? Fibrinogen (mg/dL) ?> 100 ?? < 100 ?N/A ?N/A D-Dimer (mcg/mL FEU) ? < 0.50 ?N/A ? 0.50-5.0 ??> 5 Calculate Cumulative Score: > or = 5 :compatible with overt DIC ? < 5 :suggestive for non-overt DIC N/A = Non applicable Reference: Br. J. Haematol. 145:24-33,2009. Blood BLOOD SPECIMEN / Unknown Lab Venipuncture / Unknown 11/05/2021 1:50 PM CDT 11/05/2021 1:59 PM CDT Maxi Gregg MD LAB - COAGULATIO N ORDERABLES [facility] [address] [address], [facility] [phone] * CULTURE FUNGUS OTHER+FUNGUS SMEAR (10/30/2021 4:51 PM CDT) Culture No fungus isolated [place] 11/29/2021 12:06 PM CDT [facility] MICROBIOLOGY Fungus Stain No yeast or hyphae seen 11/29/2021 12:06 PM CDT [facility] MICROBIOLOGY Microbiology SPECIMEN FROM WOUND / Unknown Collection / Unknown 10/30/2021 4:51 PM CDT 10/30/2021 5:24 PM CDT Maxi Gregg MD LAB - MICROBIOLO GY ORDERABLES [facility] MICROBIOLOGY [address] [place] [address], [facility] [phone] * (ABNORMAL) CULTURE FLUID+GRAM STAIN (10/30/2021 4:51 PM CDT) Culture Heavy Escherichia coli(AA) [place] 11/03/2021 12:18 AM CDT [facility] MICROBIOLOGY Comment:Strain 1 Culture Heavy Escherichia coli(AA) [place] 11/03/2021 12:18 AM CDT [facility] MICROBIOLOGY Comment:Strain 2 Gram Stain Heavy Polymorphonuclear cells(AA) 11/03/2021 12:18 AM CDT [facility] MICROBIOLOGY Gram Stain Light Gram-negative bacilli(AA) 11/03/2021 12:18 AM CDT [facility] MICROBIOLOGY Fluid BODY FLUID SPECIMEN / Unknown Collection / Unknown 10/30/2021 4:51 PM CDT 10/30/2021 5:24 PM CDT Narrative Organism Antibiotic Method Susceptibility Escherichia coli Amikacin TERRANCE <=2 ug/mL: Susceptible Escherichia coli Ampicillin TERRANCE 8 ug/mL: Susceptible Escherichia coli Ampicillin-sulbactam T[place] 4 ug/mL: Susceptible Escherichia coli Cefazolin T[place] <=4 ug/mL: See Comment* Escherichia coli Cefepime [place] <=1 ug/mL: Susceptible Escherichia coli Ceftriaxone [place] <=1 ug/mL: Susceptible Escherichia coli Ciprofloxacin [place] <=0.25 ug/mL: Susceptible Escherichia coli Extended-Spectrum Beta-Lactamase [place] NEG ug/mL: Neg Escherichia coli Gentamicin [place] <=1 ug/mL: Susceptible Escherichia coli Meropenem T[place] <=0.25 ug/mL: Susceptible Escherichia coli Piperacillin-tazobactam T[place] <=4 ug/mL: Susceptible Escherichia coli Tobramycin T[place] <=1 ug/mL: Susceptible Escherichia coli Trimethoprim-sulfame thoxa zole T[place] >=320 ug/mL: Resistant Comment:*Cefazolin [place] of </ =4 cannot distinguish between susceptible or intermediate for systemic breakpoints. If further defined interpretation is needed, call Microbiology and a disk diffusion test will be performed. Escherichia coli Amikacin T[place] <=2 ug/mL: Susceptible Escherichia coli Ampicillin TERRANCE 16 ug/mL: Intermediate Escherichia coli Ampicillin-sulbactam TERRANCE 4 ug/mL: Susceptible Escherichia coli Cefazolin T[place] <=4 ug/mL: See Comment* Escherichia coli Cefepime [place] <=1 ug/mL: Susceptible Escherichia coli Ceftriaxone [place] <=1 ug/mL: Susceptible Escherichia coli Ciprofloxacin [place] <=0.25 ug/mL: Susceptible Escherichia coli Extended-Spectrum Beta-Lactamase [place] NEG ug/mL: Neg Escherichia coli Gentamicin [place] <=1 ug/mL: Susceptible Escherichia coli Meropenem T[place] <=0.25 ug/mL: Susceptible Escherichia coli Piperacillin-tazobactam T[place]ANCE <=4 ug/mL: Susceptible Escherichia coli Tobramycin T[place] <=1 ug/mL: Susceptible Escherichia coli Trimethoprim-sulfame thoxa zole T[place] >=320 ug/mL: Resistant Comment:*Cefazolin [place] of </ =4 cannot distinguish between susceptible or intermediate for systemic breakpoints. If further defined interpretation is needed, call Microbiology and a disk diffusion test will be performed. Maxi Gregg MD LAB - MICROBIOLO GY ORDERABLES [facility] MICROBIOLOGY [address] [place] [address] [phone] * CULTURE ANAEROBE (10/30/2021 4:51 PM CDT) Culture No anaerobic organisms isolated [place] 11/04/2021 11:12 AM CDT [facility] MICROBIOLOGY Microbiology SPECIMEN FROM WOUND / Unknown Collection / Unknown 10/30/2021 4:51 PM CDT 10/30/2021 5:24 PM CDT Maxi Gregg MD LAB - MICROBIOLO GY ORDERABLES [facility] MICROBIOLOGY [address] [place] [address], [facility] [phone] * ETT LINE PERFORMABLE (10/30/2021 4:22 PM CDT) Narrative Lyubov Umanzor MD - 10/30/2021 4:22 PM CDT Lyubov Umanzor MD ? 10/30/2021 ??4:22 PM Endotracheal Tube Placement: ? Patient Location: OR. Intubation Event Date/Time: ??10/30/2021 3:59 PM Procedure: intubation ([id number]). Procedure Section: ?? Sedation: IV sedation. Indications for Airway Management: ??airway protection Procedure pretreatments used? ??No Induction: rapid sequence and cricoid pressure Patient Position: ??supine Mask Ventilation: not attempted. Blade Type: Video (CMAC) Blade Size: 4 Laryngoscopy View: grade 2 (partial cords) Intubation Adjuncts: cricoid pressure and stylet Tube: endotracheal tube Placement: oral Tube type: cuff - inflated Tube Size (MM): 7 Depth of Insertion (CM): 23 Measured From: lips Cuff volume (mL): ??10 Cuff inflation pressure (CM H20): ??20 Cuff Inflated With: air Number of Attempts: 1. Placement Verified By: direct visualization, bilateral breath sounds, chest auscultation and CO2 monitor CXR Findings: ETT in proper place. Tube secured with: ??adhesive tape. Dentition unchanged? ??Yes Difficult Airway? ??No. Procedure Start Time: 10/30/2021 3:59 PM. Staff Section ? Anesthesia Provider: Lyubov mUanzor MD, Performed the procedure ? Provider #1: Andi Choi MD. Andi Villanueva MD GENERAL ANESTHESI A ORDERABLES * BLOOD TYPE VERIFICATION (10/30/2021 11:31 AM CDT) ABO Rh O POS 10/30/2021 2:2 7 PM CDT [facility] Blood Bank BLOOD SPECIMEN / Unknown 10/30/2021 11:31 AM CDT 10/30/2021 1:58 PM CDT Della Sagastume MD LAB - BLOOD BANK ORD ERABLES [facility] [address] [place] [address], [facility] [phone] * [place] GIANFRANCO SURGERY (09/16/2021 9:30 AM CDT) Narrative [facility] - 09/16/2021 2:19 PM CDT For details of this study, please see the providers note. Maxi Gregg MD FLUOROSCOPY ANGEL SPEARS Performing Organization Address City/[facility]/ZIP Co de Phone Number [facility] [address] [place] [address] * ETT LINE PERFORMABLE (09/16/2021 8:19 AM CDT) Narrative Mary Rinaldi APRN-CRNA - 09/16/2021 8:19 AM CDT Mary Rinaldi APRN-CRNA ? 09/16/2021 ??8:20 AM Endotracheal Tube Placement: ? Patient Location: OR. Intubation Event Date/Time: ??09/16/2021 7:45 AM Procedure: intubation (53231). Procedure Section: ?? Sedation: under general anesthesia. Indications for Airway Management: ??anesthesia Procedure pretreatments used? ??No Induction: modified rapid sequence Patient Position: ??sniffing and supine Mask Ventilation: not attempted. Blade Type: Video (elective glidescope intubation due to airway assessment.) Blade Size: 3 Laryngoscopy View: grade 1 (full cords) Intubation Adjuncts: stylet, video laryngoscope and cricoid pressure Tube: endotracheal tube Placement: oral Tube type: cuff - inflated Tube Size (MM): 7 Depth of Insertion (CM): 21 Measured From: teeth Cuff volume (mL): ??7 Cuff Inflated With: air Number of Attempts: 1. Placement Verified By: direct visualization, bilateral breath sounds, chest auscultation and CO2 monitor Tube secured with: ??adhesive tape. Dentition unchanged? ??Yes Difficult Airway? ??No. Procedure Start Time: 09/16/2021 7:45 AM. Staff Section ? Anesthesia Provider: Mary Rinaldi APRN-CRNA, Performed the procedure Additional Comments: Dentition and oral mucosa unchanged from pre-op evaluation. Slightly anterior even with glidescope. Would recommend in the future. . Mariusz Drew MD GENERAL ANESTHESIA O RDERABLES * (ABNORMAL) URINALYSIS W/MICROSCOPIC NO CULTURE (04/20/2017 1:25 AM AUTOMATED ACCESS SYSTEMS TECHNICIAN) Only the most recent of2 resultswithin the time period is included. Color UA Yellow Straw, Yellow, Colorless, Light Yellow [facility] Clarity UA Clear Clear [facility] Specific [place] UA 1.020 1.001 - 1.030 [facility] pH UA 5.5 5.0 - 8.0 [facility] Protein UA Negative <=20 mg/dL [facility] Glucose UA Negative Negative mg/dL [facility] Ketone UA Negative Negative mg/dL [facility] Bilirubin UA Negative Negative mg/dL [facility] Blood UA Small(A) Negative [facility] Nitrite UA Negative Negative [facility] Leukocyte Esterase Moderate(A) Negative [facility] Urobilinogen UA <2.0 <2.0 mg/dL [facility] RBC UA 4 0 - 8 /HPF [facility] WBC UA 13(H) 0 - 2 /HPF [facility] Bacteria UA Rare Rare, Occasional, None /HPF [facility] Squamous Epithelial Cells UA 1 0 - 1 /HPF [facility] Mucus UA Moderate(A) None /LPF [facility] Urine specimen (specimen) 04/20/2017 1:25 AM AUTOMATED ACCESS SYSTEMS TECHNICIAN 04/20/2017 1:30 AM AUTOMATED ACCESS SYSTEMS TECHNICIAN Epi Solitario MD LAB - URINALYSIS ORD ERABLES [address] [phone] * LAMBDA LIGHT CHAINS FREE (01/27/2012 11:57 AM CDT) Immunoglobulin Lambda Free Light Chain 16.0 5.7 - 26.3 mg/L [facility] 01/27/2012 11:5 7 AM CDT 01/27/2012 12:42 PM CDT Noe Griffiths MD LAB - CHEMISTRY ANGEL SPEARS [address] [phone] * PROTEIN ELECTROPHORESIS WO INTERP BLOOD (01/27/2012 11:57 AM CDT) Interpretation Serum Protein SEE NOTE [facility] Comment: Serum protein electrophoresis shows characteristic bands corresponding to albumin, alpha and beta globulins and polyclonal immunoglobulins. ??No monoclonal immunoglobulins detected. ??Non-secretory myeloma (NSM) and light chain only myeloma cannot be excluded on the basis of this result. Recommend serum free light chain measurements for complete evaluation of multiple myeloma. ??Measurement of serum free kappa and lambda immunoglobulin light chains can identify all patients with light chain only myeloma and up to 70% of patients with NSM. The serum free light chain measurement can be performed using this specimen by calling the [facility] at [phone]. ?Marce Jerez, Ph.D. Protein Total 7.4 6.0 - 8.3 g/dL [facility] Albumin 3.8 3.3 - 5.6 G/DL [facility] Alpha-1 Globulins 0.2 0.1 - 0.3 G/DL [facility] Alpha-2 Globulins 0.8 0.5 - 1.0 G/DL [facility] Beta Globulins 1.1 0.6 - 1.1 G/DL [facility] Gamma Globulins 1.5 0.6 - 1.6 G/DL [facility] 01/27/2012 11:5 7 AM CDT 01/27/2012 12:42 PM CDT Noe Griffiths MD LAB - CHEMISTRY ANGEL SPEARS Performing Organization Address City/[facility]/ZIP Co de Phone Number [address] [phone] * HONEY BLOOD SCREEN (01/27/2012 11:57 AM CDT) HONEY NONE DETECTED NONE DETECT [facility] 01/27/2012 11:5 7 AM CDT 01/27/2012 12:42 PM CDT Noe Griffiths MD LAB - CHEMISTRY ANGEL SPEARS Performing Organization Address [facility] Co de Phone Number [address] [phone] * IMMUNOFIXATION (01/27/2012 11:57 AM CDT) Immunofixation Result SEE NOTE [facility] Comment: 1. Serum immunofixation electrophoresis shows polyclonal IgG, IgA and IgM immunoglobulins. 2. No monoclonal immunoglobulins detected. ??Non-secretory myeloma (NSM) cannot be excluded on the basis of this result. ??Measurements of serum free kappa and lambda immunoglobulin light chains can identify up to 70% of patients with NSM. ?Marce Jerez, Ph.D. 01/27/2012 11:5 7 AM CDT 01/27/2012 12:42 PM CDT Noe Griffiths MD LAB - CHEMISTRY ANGEL SPEARS Performing Organization Address [facility] Co de Phone Number [address] [phone] * TRANSFERRIN (01/27/2012 11:57 AM CDT) [facility] Transferrin 266 174 - 382 mg/dL [facility] Transferrin Saturation % 24 16 - 50 % [facility] 01/27/2012 11:5 7 AM CDT 01/27/2012 12:42 PM CDT Noe Griffiths MD LAB - CHEMISTRY ANGEL SPEARS Performing Organization Address [facility] Co de Phone Number [address] [phone] * (ABNORMAL) T3 FREE (01/27/2012 11:57 AM CDT) Pathologist [facility] T3 Free 4.0(H) 1.7 - 3.7 pg/mL [facility] 01/27/2012 11:5 7 AM CDT 01/27/2012 12:42 PM CDT Noe Griffiths MD LAB - CHEMISTRY ANGEL SPEARS Performing Organization Address [facility] Co de Phone Number [address] [phone] * KAPPA/LAMBDA LITE CHAIN FREE PANEL (01/27/2012 11:57 AM CDT) Free [place] Quantitative 15.8 3.3 - 19.4 mg/L [facility] Free [place]/Lambda Ratio 0.99 0.26 - 1.65 [facility] Interpretation Free Lite SEE NOTE [facility] Comment: INTERPRETATION: These results do not exclude the possibility of increased production of intact monoclonal immunoglobulins (i.e. molecules with covalently bound light and heavy chain components). ??Recommend serum immunofixation electrophoresis studies to detect intact monoclonal immunoglobulin production if clincally indicated. ??These studies can be performed using this serum specimen by contacting the [facility] at . A normal kappa/lambda ratio is generally seen in patients with normal or increased production of polyclonal immunoglobulins but may also occur in patients with increased synthesis of monoclonal immunoglobulins (eg. myeloma, MGUS, CLL, B-cell lymphoma, AL amyloidosis). 01/27/2012 11:5 7 AM CDT 01/27/2012 12:42 PM CDT Noe Griffiths MD LAB - CHEMISTRY ANGEL SPEARS Performing Organization Address [facility] Co de Phone Number [address] [phone] * RETIC COUNT (01/27/2012 11:57 AM CDT) Reticulocyte % 1.7 0.3 - 2.0 % [facility] Reticulocyte Absolute 0.08 0.02 - 0.10 # [facility] 01/27/2012 11:5 7 AM CDT 01/27/2012 12:42 PM CDT Noe Griffiths MD LAB - HEMATOLOGY NILES REES [address] [phone] * LDH BLOOD (01/27/2012 11:57 AM CDT) LDH Total 201 125 - 243 Units/L [facility] 01/27/2012 11:5 7 AM CDT 01/27/2012 12:42 PM CDT Noe Griffiths MD LAB - CHEMISTRY ANGEL SPEARS Performing Organization Address City/[facility]/ZIP Co de Phone Number [address] [phone] * IRON BLOOD (01/27/2012 11:57 AM CDT) Pathologist [facility] Iron 81 40 - 150 mcg/dL [facility] 01/27/2012 11:5 7 AM CDT 01/27/2012 12:42 PM CDT Noe Griffiths MD LAB - CHEMISTRY ANGEL SPEARS Performing Organization Address City/[facility]/ZIP Co de Phone Number [address] [phone] * CK BLOOD (01/27/2012 11:57 AM CDT) Pathologist [facility] CK Total 85 30 - 200 Units/L [facility] 01/27/2012 11:5 7 AM CDT 01/27/2012 12:42 PM CDT Noe Griffiths MD LAB - CHEMISTRY ANGEL SPEARS [address] [phone] * (ABNORMAL) TSH (01/27/2012 11:57 AM CDT) Pathologist [facility] TSH 0.103(L) 0.350 - 4.940 uIU/mL [facility] 01/27/2012 11:5 7 AM CDT 01/27/2012 12:42 PM CDT Noe Griffiths MD LAB - CHEMISTRY ANGEL SPEARS Performing Organization Address City/[facility] Co de Phone Number [address] [phone] * T4 FREE (01/27/2012 11:57 AM CDT) T4 Free 1.0 0.7 - 1.5 ng/dL [facility] 01/27/2012 11:5 7 AM CDT 01/27/2012 12:42 PM CDT Noe Griffiths MD LAB - CHEMISTRY ANGEL SPEARS Performing Organization Address [facility] Co de Phone Number [address] [phone] * (ABNORMAL) T3 TOTAL (01/27/2012 11:57 AM CDT) T3 Total 167(H) 58 - 159 ng/dL [facility] 01/27/2012 11:5 7 AM CDT 01/27/2012 12:42 PM CDT Noe Griffiths MD LAB - CHEMISTRY ANGEL SPEARS Performing Organization Address City/[facility] Co de Phone Number [address] [phone] * FERRITIN (01/27/2012 11:57 AM CDT) Ferritin 105 13 - 204 ng/mL [facility] 01/27/2012 11:5 7 AM CDT 01/27/2012 12:42 PM CDT Noe Griffiths MD LAB - CHEMISTRY ANGEL SPEARS [address] [phone] * MRI LUMBAR SPINE WO CONTRAST (12/16/2011 3:29 PM CDT) Anatomical Region Laterality Modality Spine Other Impressions 12/16/2011 4:31 PM CDT IMPRESSION: 1. Mild degenerative disc disease of the lumbar spine from L3-L4 through L5-S1 with mild bilateral facet arthropathy and neuroforaminal stenosis as detailed above. Narrative 12/16/2011 4:31 PM CDT EXAMINATION: Magnetic resonance imaging (MRI) of the lumbar spine without contrast HISTORY: Low back pain. TECHNIQUE: MRI of the lumbar spine was performed without contrast according to standard protocol. FINDINGS: No prior study is available for comparison. The alignment is normal. There is lumbarization of the S1 vertebral body which for the purposes of this report will be referred to as S1. Vertebral bodies are normal in height without compression fractures. Marrow signal intensity is normal. The conus medullaris terminates at the level of L1-L2 ??and the distal spinal cord signal intensity is normal. Intervertebral discs are normal in height and signal intensity. ??No soft tissue abnormality is identified. L1-L2: The disc is normal ??without central canal stenosis. The facets are normal ??without foraminal stenosis. L2-L3: The disc is normal ??without central canal stenosis. The facets are normal ??without foraminal stenosis. L3-L4: Mild diffuse disc bulge ??without central canal stenosis. Mild bilateral facet arthropathy ??without foraminal stenosis. L4-L5: Mild diffuse disc bulge ??without central canal stenosis. Mild bilateral facet arthropathy with mild right foraminal stenosis. L5-S1: Mild diffuse disc bulge ??without central canal stenosis. Mild bilateral facet arthropathy with mild bilateral foraminal stenosis. Procedure Note Ross Ruiz MD - 07/23/2017 EXAMINATION: Magnetic resonance imaging (MRI) of the lumbar spine withoutcontrast HISTORY: Low back pain. TECHNIQUE: MRI of the lumbar spine was performed without contrastaccording to standard protocol. FINDINGS: No prior study is available for comparison. The alignment is normal. There is lumbarization of the S1 vertebral bodywhich for the purposes of this report will be referred to as S1. Vertebralbodies are normal in height without compression fractures. Marrow signalintensity is normal. The conus medullaris terminates at the level of L1-L2 and the distal spinal cordsignal intensity is normal. Intervertebral discs are normal in height andsignal intensity. No soft tissue abnormality is identified. L1-L2: The disc is normal without central canal stenosis. The facets arenormal without foraminal stenosis. L2-L3: The disc is normal without central canal stenosis. The facets arenormal without foraminal stenosis. L3-L4: Mild diffuse disc bulge without central canal stenosis. Mildbilateral facet arthropathy without foraminal stenosis. L4-L5: Mild diffuse disc bulge without central canal stenosis. Mildbilateral facet arthropathy with mild right foraminal stenosis. L5-S1: Mild diffuse disc bulge without central canal stenosis. Mildbilateral facet arthropathy with mild bilateral foraminal stenosis. IMPRESSION IMPRESSION: 1. Mild degenerative disc disease of the lumbar spine from L3-L4 throughL5-S1 with mild bilateral facet arthropathy and neuroforaminal stenosis asdetailed above. Nixon Moreno MD MR ORDERABLES * LAB HISTORICAL RESULTS-ONBASE (12/08/2011) Only the most recent of2 resultswithin the time period is included. 12/08/2011 Narrative [facility] - 12/08/2011 3:03 PM CDT Historical Provider LAB - CHEMISTRY O RDERABLES Performing Organization Address City/State/[facility] Co de Phone Number [facility] [id number] Care Teams Director [facility] Relationship Specialty Start Date End Date Justen Gale MD PCP - General 07/05/21
--- OUTSIDE RECORDS SUMMARY | 2024-04-26 02:30 | XMS_ITS | Encounter Summary ---
Author Organization [facility] Address [address] [facility] [address] [place] [address] Care Team Providers Care Drop Count Associate Name Role Phone Justen Gale MD Primary Care Provider [phone] Reason for Visit * Reason Comments Shortness of Breath * Auth/Cert (Routine) Specialty Diagnoses / Procedures Referred By Contac t Referred To Contact Referral ID Status Reason Start Date Expiration Date Visits Re quested Visits Authorized [id number] 1 1 Encounter Details Date Type Department Care Team (Late st Contact Info) Description 06/16/2023 2:28 PM PLANT ASSIGNER - 06/17/2023 1:00 PM PLANT ASSIGNER Emergency [place] SHORT STAY UNIT [facility] [place] [phone] Roger Snowden MD [address] [facility] DIV [place] [address] Spencer Friend III, MD [address] DIV OF [facility] [place] [phone] Luis Armando Saravia MD [address] [facility] DIV OF [facility] [place] [address] Hospitalist Discharge Disposition: Home or Self Care Social [...] medical care, and heating? Somewhat hard 05/16/2023 [place] [facility] - Occupational Stress [...] Sign Reading Time Taken Comments Blood Pressure 93/56 06/17/2023 8:03 AM PLANT ASSIGNER Pulse 70 06/17/2023 8:03 AM PLANT ASSIGNER Temperature 36.9 ??C (98.4 ??F) 06/17/2023 8:03 AM CS T Respiratory Rate 18 06/17/2023 8:03 AM PLANT ASSIGNER Oxygen Saturation 95% 06/17/2023 8:03 AM PLANT ASSIGNER Inhaled Oxygen Concentration 21% 06/17/2023 1 2:30 AM PLANT ASSIGNER Weight 122.5 kg (270 lb) 06/17/2023 12:00 AM PLANT ASSIGNER Height 154.9 cm (5' 0.98 ) 06/17/2023 12:[address] Body Mass Index 51.04 06/17/2023 12:00 AM PLANT ASSIGNER documented in this encounter Functional Status Functional [...] as of this encounter Discharge Summaries * Luis Armando Saravia MD - 06/17/2023 10:32 AM CST Physician Discharge Summary Patient ID: Karly Marques [id number] 68 year old 1955 Admit date: 06/16/2023 Discharge date: 06/17/2023 Admitting Physician: Spencer Friend III, MD Discharge Physician: Luis Armando Saravia Admission Diagnoses: Acute on chronic back pain Discharge Diagnoses: Acute on chronic back pain - Improved Discharged Condition: stable Hospital Course: 67 y/o F w/ PMH chronic back pain s/p spinal stimulation system in 2001 c/b battery infection 01/2023 s/p removal and new battery 02/16, anxiety, depression, HTN, RLS, PE on AC, DM2 presents w/ acuteon chronic back pain. She has multiple recent ED visits and hospitalizations in Dec x 2, Apr, May for similar complaints of pain at her spinal stimulator. Pain is shooting down her arm, leg weakness,worsens w/ movement. Denies any issues w/ bowel or urine incontinence. She had an EMG done 05/31/23 showing combination of large fiber sensory motor chronic polyneuropathy and lumbosacral radiculopathy. She was recently seen by neuro Dr Figueroa 06/05 for device adjustment, and recommended no surgical intervention. On admission, she was hemodynamically stable, CMP, CBC, trop x 2 wnl. NSGY was consultedand discussed option to remove stimulator - however stimulator would need to be turned off at least2 weeks prior to removal (pt turned off stimulator 2 days prior to admission) - and did not recommend acute surgical intervention. Pt received IV pain medications, flexeril which helped relieve the pain. She was discharged home w/ PRN norco and flexeril, heat pack PRN, lidocaine patch PRN and f/u w/ Dr Figueroa as outpatient. She was recommended to continue a bowel regimen on opiates. Consults: Neurosurgery Significant Diagnostic Studies: See hospital course Discharge Exam: General: NAD and cooperative, obese HEENT: NCAT, PERRLA, EOMI Neck: Supple, non-tender Cardio: RRR, no murmurs Resp: Lungs clear to auscultation bilaterally Abdomen: Soft, non-tender, non-distended, bowel sounds normal Extremities: No edema Skin: No rash or lesions Neuro: AO x 4, CN 2 to 12 grossly intact, no focal deficits Disposition: Home Current Discharge Medication List START taking these medications Instructions Authorizing Provider cyclobenzaprine 5 MG tablet Commonly known as: Flexeril Quantity Dispensed: 30 tablet Take 1 (one) tablet by mouth 3 times daily as needed (Muscle spasms) Luis Armando Saravia MD polyethylene glycol 3350 17 g packet Commonly known as: Miralax Take 17 (seventeen) g by mouth once daily Luis Armando Saravia MD CONTINUE taking these medications which have NOT CHANGED Instructions Authorizing Provider amoxicillin-clavulanate 875-125 MG tablet Commonly known as: Augmentin Take 1 (one) tablet by mouth every 12 hours FOR 10 DAYS B-D ULTRAFINE III SHORT PEN 31G X 8 MM needle Generic drug: insulin pen needle Quantity Dispensed: 300 Each 4 times daily Mckenzie Johnston MD exemestane 25 MG tablet Commonly known as: Aromasin Take 1 (one) tablet by mouth DAILY HumaLOG KwikPen 100 UNIT/ML pen Generic drug: insulin lispro 26 (twenty six) Units 3 times daily before meals HYDROcodone-acetaminophen 10-325 MG tablet Commonly known as: Hiland Quantity Dispensed: 12 tablet Take 1 (one) tablet by mouth every 8 hours as needed for Pain Takes 3-4 times a day Luis Armando Saravia MD hydrOXYzine HCl 25 MG tablet Commonly known as: Atarax Quantity Dispensed: 30 tablet Take 1 (one) tablet by mouth 3 times daily as needed for Itching Estrella Dunbar MD Lantus SoloStar pen Generic drug: insulin glargine 40 (forty) Units once lidocaine 5 % patch Commonly known as: Lidoderm Quantity Dispensed: 18 patch Apply 1 (one) patch to skin every 24 hours Apply patch to most painful area and remove after 12 hours. May reapply a new patch 12 hours later. Mary Velasquez MD methenamine hippurate 1 GM tablet Commonly known as: Hiprex Quantity Dispensed: 60 tablet TAKE 1 TABLET BY MOUTH TWICE DAILY Opal Orellana APRN-NETTA Multivitamin Womens 50+ Adv Tabs Take 1 tablet by mouth once daily ONETOUCH DELICA PLUS 33G EXTRA FINE LANCET USE FOUR TIMES DAILY OneTouch Ultra test strip Generic drug: blood glucose 4 times daily oxyBUTYnin CR 24hr 15 MG tablet Commonly known as: Ditropan XL Quantity Dispensed: 90 tablet Take 1 (one) tablet by mouth once daily Opal Orellana APRN-NETTA rivaroxaban 20 MG tablet Commonly known as: Xarelto Take 1 (one) tablet by mouth daily with food Reasons: Blockage of Blood Vessel to Lung by a Particle, Blood Clot in a Deep Vein rOPINIRole 5 MG tablet Commonly known as: Requip TAKE 1 TABLET BY MOUTH EVERY NIGHT Signed: Luis Armando Saravia MD 06/17/2023 11:32 AM T ASSIGNER documented in this encounter Discharge Instructions * Discharge Instructions* Luis Armando Saravia MD - 06/17/2023 11:34 AM PLANT ASSIGNER Dear Ms Marques, Please continue your pain medication as needed including the flexeril Please continue the rest of your medications Please follow-up with Dr Figueroa as outpatient T ASSIGNER documented in this encounter Medications at Time of Discharge Medication Sig Dispensed Refills Start Date End Date cyclobenzaprine (Flexeril) 5 MG tablet Take 1 (one) tablet by mouth 3 times daily as needed (Muscle spasms) 30 tablet 06/17/2023 exemestane (AROMASIN) 25 MG tablet Take 1 (one) tablet by mouth DAILY 04/20/2017 HumaLOG KwikPen 100 UNIT/ML pen 26 (twenty [...] patch 12 hours later. 18 patch 04/20/2023 Multiple Vitamins-Minerals (Multivitamin Womens 50+ Adv) TABS Take 1 tablet by mouth once daily ONETOUCH ULTRA test strip 4 times daily 02/01/2021 polyethylene glycol 3350 (Miralax) 17 g packet Take 17 (seventeen) g by mouth once daily 06/17/2023 rivaroxaban (Xarelto) 20 MG tabletIndications:Deep Vein Thrombosis,Pulmonary Embolism Take 1 (one) tablet by mouth daily with food Reasons: Blockage of Blood Vessel to Lung by a Particle, Blood Clot in a Deep Vein rOPINIRole (REQUIP) 5 MG tablet TAKE 1 TABLET BY MOUTH EVERY NIGHT 06/09/2021 amoxicillin-clavulanate (Augmentin) 875-125 MG tablet Take 1 (one) tablet by mouth every 12 hours FOR 10 DAYS 06/02/2023 08/01/2023 HYDROcodone-acetaminoph en (Hiland) 10-325 MG tabletIndications:Chron ic left-sided low back pain with left-sided sciatica Take 1 (one) tablet by mouth every 8 hours as needed for Pain Takes 3-4 times a day 12 tablet 06/17/2023 08/01/2023 methenamine hippurate (Hiprex) 1 GM tablet TAKE 1 TABLET BY MOUTH TWICE DAILY 60 tablet 3 12/14/2022 07/12/2023 oxyBUTYnin CR 24hr (Ditropan XL) 15 MG tablet Take 1 (one) tablet by mouth once daily 90 tablet 4 08/15/2022 03/08/2024 documented as of this encounter Progress Notes * Cinda Cota - 06/17/2023 1:00 PM CST Discharge Procurement Forester received request from to arrange follow-up appointment for Patientwith Neurosurgery. This senior medical writer called [phone] and spoke with [place]. Procurement Forester was able to obtain follow-up appointment for Patient with on 07/03/23 at 10:30am. No further follow-up needs from clerical coordinator indicated at this time. Cinda Cota, Discharge Procurement Forester 06/20/2023 T ASSIGNER * Fabiola Roberts RN - 06/17/2023 9:47 AM CST Problem: Pain/Discomfort Goal: Patient exhibits reduced pain/discomfort as evidenced by pain scores Outcome: Progressing Goal: Patient uses pharmacological and non-pharmacological pain management strategies. Outcome: Progressing Goal: Patient verbalizes acceptable level of pain relief and ability to engage in desired activity. Outcome: Progressing Problem: Ineffective breathing pattern related to obstructive sleep apnea Goal: Maintains optimal sleep pattern, as evidenced by relaxed breathing at normal rate and depth. Outcome: Progressing Goal: Adheres to CPAP (Continuous Positive Airway Pressure) device regimen as prescribed. Outcome: Progressing Problem: Sleep deprivation related to sleep apnea. Goal: Achieves restful, refreshing sleep pattern. Outcome: Progressing T ASSIGNER * Albert Carrasco RN - 06/17/2023 12:18 AM CST Problem: Pain/Discomfort Goal: Patient exhibits reduced pain/discomfort as evidenced by pain scores Outcome: Progressing Goal: Patient uses pharmacological and non-pharmacological pain management strategies. Outcome: Progressing Goal: Patient verbalizes acceptable level of pain relief and ability to engage in desired activity. Outcome: Progressing T ASSIGNER documented in this encounter H&P Notes * Leo Tolentino DO - 06/17/2023 7:02 AM CST [facility] INTERNAL MEDICINE HISTORY & PHYSICAL NOTE Date of Admission: 06/16/2023 Patient: Karly Marques Sex: female Age: [age] year old Date of : 1955 Code Status: Prior SUBJECTIVE Chief Complaint: Acute on chronic back pain History of Present Illness: Karly Marques is a 67 yo female with pmhx of chronic back pain s/p spinal stimulation system 2021 c/b battery infection requiring removal s/p new battery 02/16/2023, anxiety, depression, HTN, RLS, PE on AC, T2DM who presented to [facility] for acute on chronic back pain and pain management. Of note, pt has history of multiple hospitalizations and ED visits for acute on chronic back pain with last visits being 05/2023, 04/2023, 03/2023 x2. Pt complains of pain near the site of her spinal stimulator. PT reports shooting pain down her arms and weakness in her legs that is worsened when laying down. Pt reports turning off her spinal stimulator when her pain worsened when turning it on. Ptendorses headache however denies fever, chills, recent trauam, bowel or urine incontinence. Pt reports history of urgency and UTI's and using oxbutynin. Pt was recently seen by neurology 06/05/23 and recommended to meet with [facility] quality assurance representative for device adjustment with no surgical intervention atthis time. On admission, bp 172/96, HR 87, SpO 99 on RA. Labs unremarkable including CMP and CBC, Trop x2 negative. Recent underwent CT lumbar showing degenerative changes and neural formainal stenosis in L4-L5with chronic findings of sacroiliitis. Had an EMG done 05/31/23 showing combination of large fiber sensory motor chronic polyneuropathy and lumbosacral radiculopathy. NSGY consulted on admission with no plan for acute intervention however recommend pain control. PT admitted to medicine team for pain management. Past Medical History: Past Medical History: Diagnosis Date ??? Breast cancer ([facility]) ??? Chest pain ??? DVT (deep venous thrombosis) ([facility]) ??? GERD (gastroesophageal reflux disease) ??? LUL (obstructive sleep apnea) w cpap ??? Other pulmonary embolism without acute cor pulmonale ([facility]) ??? rls ??? Type 2 diabetes mellitus without complications ([facility]) Past Surgical History: Past Surgical History: Procedure [...] Cigarettes Quit date: 12/05/1977 Years since quittin.5 ??? Smokeless tobacco: Never Vaping Use ??? [...] No Stress: No Stress Concern Present (05/16/2023) [place] [place] [facility] [employer] - Occupational Stress Questionnaire [...] every 12 hours FOR 10 DAYS ??? exemestane (AROMASIN) 25 MG tablet Take 1 (one) tablet by mouth DAILY ??? HumaLOG KwikPen 100 UNIT/ML pen 26 (twenty six) Units 3 times daily before meals ??? HYDROcodone-acetaminophen (Hiland) 10-325 MG tablet Take 1 (one) tablet [...] ??? methenamine hippurate (Hiprex) 1 GM tablet TAKE 1 TABLET BY MOUTH TWICE DAILY 60 tablet 3 ??? Multiple Vitamins-Minerals (Multivitamin Womens 50+ Adv) TABS Take 1 tablet by mouth once daily ??? ONETOUCH ULTRA test strip 4 times daily ??? oxyBUTYnin CR 24hr (Ditropan XL) 15 MG tablet Take 1 (one) tablet by mouth once daily 90 tablet4 ??? rivaroxaban (Xarelto) 20 MG tablet Take 1 (one) tablet by mouth daily with food Reasons: Blockage of Blood Vessel to Lung by a Particle, Blood Clot in a Deep Vein ??? rOPINIRole (REQUIP) 5 MG tablet TAKE 1 TABLET BY MOUTH EVERY NIGHT Current Medications: Scheduled: ??? 0.9% NaCl 3 mL Intracatheter q8h ??? rOPINIRole 5 mg Oral AT BEDTIME Continuous: PRN: ??? SALINE LOCK, INSERT AND MAINTAIN AND 0.9% NaCl AND 0.9% NaCl ??? HYDROmorphone Review of Systems: Review of Systems Constitutional: Negative. GARY: Negative. Eyes: Negative. Respiratory: Negative. Cardiovascular: Negative. Gastrointestinal: Negative. Genitourinary: Positive for urgency. Musculoskeletal: Positive for back pain and myalgias. Negative for falls. Skin: Negative. Neurological: Positive for weakness. Endo/Heme/Allergies: Negative. Psychiatric/Behavioral: Negative. OBJECTIVE Vital Signs: Temp: [97.6 ??F (36.4 ??C)] 97.6 ??F (36.4 ??C) Pulse: [86-88] 88 Resp: [18-28] 28 BP: (119-178)/(61-128) 151/128 Physical Exam: Physical Exam Constitutional: Appearance: She is obese. HENT: Head: Normocephalic and atraumatic. Nose: Nose normal. Mouth/Throat: Mouth: Mucous membranes are moist. Eyes: Extraocular Movements: Extraocular movements intact. Pupils: Pupils are equal, round, and reactive to light. Cardiovascular: Rate and Rhythm: Normal rate and regular rhythm. Pulses: Normal pulses. Heart sounds: Normal heart sounds. Pulmonary: Effort: Pulmonary effort is normal. Breath sounds: Normal breath sounds. Abdominal: General: Abdomen is flat. Palpations: Abdomen is soft. Musculoskeletal: General: Normal range of motion. Skin: General: Skin is warm. Neurological: General: No focal deficit present. Mental Status: She is alert and oriented to person, place, and time. Sensory: No sensory deficit. Motor: No weakness. Psychiatric: Mood and Affect: Mood normal. Behavior: Behavior normal. Lab Results: CBC: Recent Labs Component Name 06/16/23 0848 05/28/23 1621 05/15/23 2201 WBC 8.4 10.0 10.8* HGB 14.1 13.3 12.8 HCT 43.6 42.2 40.4 MCV 89.3 90.9 92.2 Coagulation Panel: Recent Labs Component Name 02/21/23 1830 02/17/23 1838 02/16/23 1220 02/06/23 1330 02/06/23 1330 11/13/21 0107 11/12/21 1823 PT 13.2 12.7 15.0* - 25.7* 15.2* - INR 1.0 1.0 1.2* - 2.5* 1.2 - PTT - - - - 35.4 77.2* 70.9* - = values in this interval not displayed. BMP: Recent Labs Component Name 06/16/23 0848 05/28/23 16205/16/2323404/17/23205803/24/23233703/22/23 1028 NA 135* - - - 135* 137 POTASSIUM 3.7 3.9 4.1 - 4.2 4.2 CL 103 - - - 98 100 CO2 24 25 25 - 27 BUN 14 12 13 - 17 14 CREATININE 0.63 0.77 0.67 - 0.99* 0.89 CALCIUM 9.9 9.8 9.0 - 9.4 9.8 - = values in this interval not displayed. Recent Labs Component Name 03/22/23 1028 03/20/23 0355 12/26/22 0132 MAGNESIUM 1.6 1.7 1.5* Recent Labs Component Name 03/22/23 1028 03/20/23 0355 02/24/23 0233 PHOS 3.3 2.9 2.5* Hepatic Panel: Recent Labs Component Name 06/16/23 0848 05/28/23 1621 05/15/23220004/17/23205803/24/23233703/22/23 1028 03/20/23 0355 AST 17 17 - 14 ALT 18 18 - 14 ALKPHOS 82 82 74 - 77 - 65 TBILI 0.6 - - - 0.4 - 0.5 ALB 3.5 - - - 3.3* 3.4 2.9* - = values in this interval not displayed. ABG: No results for input(s): PH , PCO2 , PO2 in the last 62871 hours. Invalid input(s): BICAR3 Amylase/Lipase: Invalid input(s): AMYL , LIPA Thyroid Studies: No results for input(s): TSH , T4 in the last 66752 hours. Cardiac Enzymes: Recent Labs Component Name 11/11/21223711/05/21 1350 TROPONINI <0.010 <0.010 Lipid Panel: No results for input(s): LDLCALC , HDL in the last 80110 hours. ASSESSMENT & PLAN Chronic midline low back pain without sciatica (POA: Unknown) Karly Marques is a 67 yo female with pmhx of chronic back pain s/p spinal stimulation system 2001 c/b battery infection requiring removal s/p new battery 02/16/2023, anxiety, depression, HTN, RLS, PE on AC, T2DM who presented to [facility] for acute on chronic back pain and pain management. #Acute on chronic back pain #S/p SSS 2021 c/b battery infection s/p replacement 01/2023 - patient has history of multiple admissions requiring pain management with none having any for of surgical intervention - pt visibly in distress and tearful. - pt recently seen NSGY outpatient who recommended meeting with quality assurance representative to adjust device settings however patient adamant on getting it removed - reports tingling in her left leg. Muscle strength / - pt follows with pain management outpatient PLAN - Resume home norco 10-325 mg - Dilaudid 0.6 mg every 4 hours - Re-engage conversation with NSGY if possible. #Hx of PE #Hx of DVT PLAN - resume Eliquis #T2DM - Most recent A1c 9.5% per last endocrine visit 05/30/2023 - Pt home dose includes: Lantus 40 units, 28units with meals, Now started on Mounjaro 2.5 mg weeklyfor 4 weeks PLAN - Lantus 25 - Meal time aspart 15 units - High SSI - Adjust as needed back to home dose #Hx of breast cancer PLAN - Continue Exemstane #RLS PLAN - Continue ropinirole Code: FULL Diet: Diabetic Electrolytes: Replete PRN PPx: Xarelto Access: PIV Dispo: Admit to Medicine. The above assessment and plan will be discussed with the attending. This note is not final until attested by attending physician. Leo Tolentino DO Internal Medicine Resident [facility] - [facility] 06/16/2023 7:47 PM T ASSIGNER Associated attestation - Luis Armando Saravia MD - 06/17/2023 11:47 AM PLANT ASSIGNER I have personally and independently examined the patient and reviewed the chart and all pertinent data including imaging and labs. I agree with the Chairlift Operator with the note and treatment plan for this patient. Luis Armando Saravia D.O. Hospitalist documented in this encounter Consult Notes * Sammy Cobb MD - 06/16/2023 5:31 PM CSTAssociated Order(s): IP CONSULT TO NEUROSURGERY Neurosurgery Spine Consult Note Name: Karly Marques : 1955 Date of Admission:06/16/2023 Date of Consult:06/16/2023 5:33 PM Time Seen: 530 PM Chief Complaint (CC): acute on chronic back pain HISTORY OF PRESENT ILLNESS (HPI): Patient is a 67y/o female, w/ PMH of refractory axial low back pain s/p T8-9 laminectomy for placement of spinal stimulator (with Dr. Gregg in 02/13), DVT/PE (on Xarelto), GERD, DM and LUL, who presented to [facility] ED on 06/16 with acute on chronic back pain x 1 DAY days. Pain radiates into her right hiop. She denies trauma. She reportedly turned the stimulator on yesterday but turned it off again when it worsened the pain. Of note, patient recently admitted to [facility] ED on 04/17/23 and again on 05/16/23 w/ similar complaints. She was admitted for pain control. Past Medical History: Diagnosis Date ??? Breast cancer ([facility]) ??? Chest pain ??? [place] ([place]) [place] ??? GERD (gastroesophageal reflux disease) ??? LUL (obstructive sleep apnea) w cpap ??? Other pulmonary embolism without acute cor pulmonale ([facility]) ??? rls ??? Type 2 diabetes mellitus without complications ([facility]) Past Surgical History: Procedure Laterality Date ??? [...] ??? Skin Adhesives Skin Reactions Current Medications amitriptyline (ELAVIL) 25 MG tablet at bedtime exemestane (AROMASIN) 25 MG tablet Take 1 (one) tablet by mouth DAILY HumaLOG KwikPen 100 UNIT/ML pen 22 (twenty two) Units 3 times daily before meals hydroCHLOROthiazide (Microzide) 12.5 MG capsule Take 1 (one) capsule by mouth once daily HYDROcodone-acetaminophen (Hiland) 10-325 MG tablet Take 1 (one) tablet [...] USE FOUR TIMES DAILY Lantus SoloStar pen ADMINISTER 50 UNITS UNDER THE SKIN EVERY MORNING methenamine hippurate (Hiprex) 1 GM tablet TAKE 1 TABLET BY MOUTH TWICE DAILY methocarbamol (Robaxin) 500 MG tablet Take 1 (one) tablet by mouth every 6 hours as needed for Muscle Spasms naloxone HCl (NARCAN) 4 MG/0.1ML nasal spray as needed ONETOUCH ULTRA test strip 4 times daily [...] 1 TABLET BY MOUTH EVERY NIGHT Current Facility-Administered Medications Medication ??? 0.9% NaCl injection 3 mL And ??? 0.9% NaCl injection 1-10 mL ??? prochlorperazine (Compazine) injection 5 mg Current Outpatient Medications Medication ??? amoxicillin-clavulanate (Augmentin) 875-125 MG tablet ??? exemestane (AROMASIN) 25 MG tablet ??? HumaLOG KwikPen 100 UNIT/ML pen ??? HYDROcodone-acetaminophen (Hiland) 10-325 MG tablet ??? hydrOXYzine HCl (Atarax) 25 MG tablet ??? insulin pen needle (B-D ULTRAFINE III SHORT PEN) 31G X 8 MM needle ??? Lancets (ONETOUCH DELICA PLUS 33G EXTRA FINE LANCET) ??? Lantus SoloStar pen ??? lidocaine (Lidoderm) 5 % patch ??? methenamine hippurate (Hiprex) 1 GM tablet ??? Multiple Vitamins-Minerals (Multivitamin Womens 50+ Adv) TABS ??? ONETOUCH ULTRA test strip ??? oxyBUTYnin CR 24hr (Ditropan XL) 15 MG tablet ??? rivaroxaban (Xarelto) 20 MG tablet ??? rOPINIRole (REQUIP) 5 MG tablet Social History Tobacco Use ??? Smoking status: Former Packs/day: .5 Types: Cigarettes Quit date: 12/05/1977 Years since quittin.5 ??? Smokeless tobacco: Never Substance Use Topics ??? Alcohol use: No Family History Problem Relation Name Age of Onset ??? Heart Disease Mother ??? Diabetes Mother ??? Cancer Father ??? Hemochromatosis Father ??? Cancer Sister ??? Heart Disease Brother PHYSICAL EXAM BP (!) 176/104 Pulse 88 Temp 97.6 ??F (36.4 ??C) Resp 28 Ht 1.549 m (5' 1 ) Wt 122.5 kg (270 lb) SpO2 99% General: NAD Neuro: Mental status: Alert, attentive, and oriented. Speech is clear and fluent. Cranial nerves: Grossly intact Motor: Muscle bulk and tone are normal. Hip Flexor Quad Hamstring Tib Ant Gastroc EHL Right 5 5 5 5 5 5 Left 5 5 5 5 5 5 LABORATORY Recent Labs Component Name 06/16/23 0848 WBC 8.4 HGB 14.1 HCT 43.6 PLTCOUNT 292 Recent Labs Component Name 06/16/23 0848 05/28/23 1621 NA 135* - POTASSIUM 3.7 3.9 CHLORIDE - 104 CO2 24 25 BUN 14 12 CREATININE 0.63 0.77 GLUCOSE 250* 189* Recent Labs Component Name 02/21/23 1830 INR 1.0 RADIOLOGY No new imaging Assessment: 68 year old female with chronic axial low back pain s/p T8-9 laminectomy for placement of spinal stimulator (with Dr. Gregg in 02/13) who [facility] w/ c/o acute on chronic lowback pain which radiates down her left leg for 2 days. Neurologically, she is at baseline and full strength. Her incisions are completely healed without evidence of infection. Patient has had two other similar admissions and her pain improved after admission with IV pain medications. Attempted MRI at last visit but this was not done due to high impedences on stimulator. Patient had outpatient EMGthat showed combination of polyneuropathy and radiculopathy. Given reassuring exam, recommend conservative management with no further imaging. Discussed option to remove stimulator. Discussed that stimulator would need to be turned off for atleast 2 weeks before removing. Plan: - No acute surgical intervention is warranted - Will follow up in 2 weeks outpatient - Pain control per ED - Activity: As tolerated Sammy Cobb MD 06/16/2023 5:33 PM Ascom Pager T ASSIGNER documented in this encounter ED Notes * Lila Lal RN - 06/16/2023 11:38 PM CST Report given to NURIS Driscoll T ASSIGNER * Lila Castillo MD - 06/16/2023 6:29 PM CST Physician Transition Note 6:29 PM Care assumed from Dr. Snowden Briefly, this is a 68 year old female with Chief Complaint Patient presents with Shortness of Breath Significant Findings: back pain Workup (labs/Imaging) pending: none Working Differential: post-operative pain Current Plan/Dispo: admit for pain control Please refer to previous Attending note for further details. Vitals: 06/16/23 1714 06/16/23 1734 06/16/23 1744 06/16/23 1754 BP: 148/78 149/87 156/93 Pulse: Resp: Temp: SpO2: 97% 99% 96% Weight: Height: ED Course Stable overnight. Still requires admission. Awaiting floor bed. Taken over by the medicine service. 1. Shortness of breath 2. Chronic midline low back pain without sciatica Lila Castillo MD 06/16/2023 6:29 PM T ASSIGNER * Roger Snowden MD - 06/16/2023 2:58 PM CST ED ATTENDING NOTE History: Karly Marques is a 68 year old female with a past medical history of chronic back pain, HTN, and CHF presenting to the ED c/o back pain and SOB. Patient reports SOB for a day without chest pain that she associates with her worsening back pain. She states she follows with pain management and hada spinal stimulator placed by Dr. Gregg 16 weeks ago. Patient reports that since the stimulator was placed her life has been a living hell. She states she normally takes hydrocodone for the pain but that yesterday she turned the stimulator on to try to help the pain but it made the pain worse. Patient reports turning the stimulator off but states that the pain has remained worse. She c/o lower back pain near the site of her spinal stimulator. Patient reports shooting pain down her arms and weakness in her legs which she states she had before her surgery. She also reports headache. Patient denies fever, chills, recent trauma, or changes in bowel or bladder habits. She reports urgency incontinence but states that has been normal since her surgery. No other complaints or modifying factors at this time. Past Medical History: Diagnosis Date ??? Breast cancer ([facility]) ??? Chest pain ??? DVT (deep venous thrombosis) ([facility]) ??? GERD (gastroesophageal reflux disease) ??? LUL (obstructive sleep apnea) w cpap ??? Other pulmonary embolism without acute cor pulmonale ([facility]) ??? rls ??? Type 2 diabetes mellitus without complications ([facility]) Past Surgical History: Procedure Laterality Date ??? [...] THE BATTERY IN THE LOWER LUMBAR REGION Social History Socioeconomic History ??? Marital status: Spouse name: Not on file ??? Number of children: Not on file ??? Years of education: Not on file ??? Highest education level: Not on file Occupational History ??? Not on file Tobacco Use ??? Smoking status: Former Packs/day: .5 Types: Cigarettes Quit date: 12/05/1977 Years since quittin.5 ??? Smokeless tobacco: Never Vaping Use ??? [...] No Stress: No Stress Concern Present (05/16/2023) [employer] [employer] - Occupational Stress Questionnaire ??? Feeling of Stress : Not at all Housing Stability: Low Risk (05/16/2023) Housing Stability Vital Sign ??? Unable to Pay for Housing in the Last Year: No ??? Number of Places Lived in the Last Year: 1 ??? Unstable Housing in the Last Year: No Review of Systems Constitutional: Negative for chills, fever and malaise/fatigue. HENT: Negative for congestion, ear pain and sore throat. Eyes: Negative for blurred vision, pain and discharge. Respiratory: Positive for shortness of breath. Negative for cough and wheezing. Cardiovascular: Negative for chest pain and palpitations. Gastrointestinal: Negative for abdominal pain, diarrhea, nausea and vomiting. Genitourinary: Negative for dysuria, frequency and hematuria. Musculoskeletal: Positive for back pain. Negative for myalgias and neck pain. Skin: Negative for itching and rash. Neurological: Positive for weakness and headaches. Negative for dizziness and tingling. Psychiatric/Behavioral: Negative for depression and suicidal ideas. Vitals: 06/16/23 1714 06/16/23 1734 06/16/23 1744 06/16/23 1754 BP: 148/78 149/87 156/93 Pulse: Resp: Temp: SpO2: 97% 99% 96% Weight: Height: Physical Exam Vitals reviewed. Constitutional: General: She is not in acute distress. Appearance: Normal appearance. She is normal weight. HENT: Head: Normocephalic and atraumatic. Mouth/Throat: Mouth: Mucous membranes are moist. Pharynx: Oropharynx is clear. Eyes: Extraocular Movements: Extraocular movements intact. Pupils: Pupils are equal, round, and reactive to light. Cardiovascular: Rate and Rhythm: Normal rate and regular rhythm. Pulmonary: Effort: Pulmonary effort is normal. Breath sounds: Normal breath sounds. Abdominal: Palpations: Abdomen is soft. Tenderness: There is no abdominal tenderness. Musculoskeletal: General: Normal range of motion. Cervical back: Normal range of motion and neck supple. Skin: General: Skin is warm and dry. Neurological: Mental Status: She is alert and oriented to person, place, and time. Mental status is at baseline. Comments: 5/5 strength to BUE and BLE. No numbness or tingling noted in BLE or groin. Psychiatric: Mood and Affect: Mood is anxious. Affect is tearful. MDM/Impression: Impression: 68 year old female with PMHx of chronic back pain with spinal stimulator in place presenting to ED c/o SOB and back pain. SOB: ACS vs pneumonia vs viral syndrome vs less likely PE vs anxiety vs fluid overload vs other Back pain: Acute onchronic back pain vs muscle spasm vs less likely infection vs less likely conus vs cauda equina Plan: CXR, labs, pain control, reassess - LABS: Labs Reviewed COMPREHENSIVE METABOLIC PANEL - Abnormal; Notable for the following components: Result Value Sodium 135 (*) Glucose 250 (*) Protein Total 8.9 (*) Albumin/Globulin Ratio 0.6 (*) All other components within normal limits CBC W AUTO DIFFERENTIAL - Normal TROPONIN-I HIGH SENSITIVE BASELINE + 1HR - Normal B-TYPE NATRIURETIC PEPTIDE - Normal TROPONIN-I HIGH SENSITIVE REFLEX 1HOUR - IMAGING: XR CHEST 1VW PORTABLE Final Result PROCEDURE: XR CHEST 1VW PORTABLE, DATE/TIME OF EXAM: 06/16/2023 3:18 PM, LOCATION [facility] INDICATION: R06.02: Shortness of breath ADDITIONAL CLINICAL [...] intact. Report dictated by Ulises Sanford MD, (Purchaser). I, Raquel Cedillo MD have personally reviewed and interpreted this examination/study. > Interpreting Provider: Raquel Cedillo MD on 06/16/2023 4:20 PM No results found. Orders and Medicine administered during this encounter: Orders Placed This Encounter ??? XR CHEST 1VW PORTABLE ??? CBC W AUTO DIFFERENTIAL ??? COMPREHENSIVE METABOLIC PANEL ??? TROPONIN-I HIGH SENSITIVE BASELINE + 1HR ??? B-TYPE NATRIURETIC PEPTIDE ??? TROPONIN-I HIGH SENSITIVE REFLEX 1HOUR ??? IP CONSULT TO NEUROSURGERY ??? OXYGEN WITHOUT TITRATION (ADULT) ??? EKG 12-LEAD ??? AND Linked Order Group ??? 0.9% NaCl injection 3 mL ??? 0.9% NaCl injection 1-10 mL ??? HYDROmorphone (Dilaudid) injection 1 mg ??? cyclobenzaprine (Flexeril) tablet 10 mg ??? prochlorperazine (Compazine) injection 5 mg Medications 0.9% NaCl injection 3 mL (3 mL Intracatheter Not Administered 06/16/23 1540) And 0.9% NaCl injection 1-10 mL (has no administration in time range) HYDROmorphone (Dilaudid) injection 1 mg (1 mg Intravenous $ Given 06/16/23 1525) cyclobenzaprine (Flexeril) tablet 10 mg (10 mg Oral $ Given 06/16/23 1516) prochlorperazine (Compazine) injection 5 mg (5 mg Intravenous $ Given 06/16/23 1739) ED Course: 4:20 PM: CXR shows no pulmonary consolidation, pleural effusion, or pneumothorax. Labs reviewed: relatively unremarkable including negative troponin x2. 6:00 PM: PUNEET to Dr. Castillo. Clinical Impression: 1. Shortness of breath 2. Chronic midline low back pain without sciatica Disposition: Pending - PUNEET to Dr. Castillo By signing my name below, I, Lora Hurt, attest that this documentation has been prepared under the direction and in the presence of Dr. Snowden. Signed: Kehinde Bravo. I, Dr. Snowden, personally performed the services described in this documentation. All medical record entries made by the scribe were at my direction and in my presence. I have reviewed the chart and agree that the record reflects my personal performance and is accurate and complete. T ASSIGNER * John Paul Dickinson MD - 06/16/2023 2:28 PM CST Bed: AC03 Expected date: Expected time: Means of arrival: Comments: [place] when clean T ASSIGNER * Ca Givens - 06/16/2023 10:31 AM CST HELPED TO BATHROOM T ASSIGNER * Hannah Mercer - 06/16/2023 9:52 AM CST Patient complaining of 9 out of 10 back pain at this time. T ASSIGNER * Antonia Arzola RN - 06/16/2023 8:03 AM CST Patient arrives to the ED with complaints of SOB that started yesterday. Patient also reports lowerback pain that is chronic. Patient stated she had a stimulator placed on her back and that made that pain worse. Patient deniesany chest pain. T ASSIGNER documented in this encounter Plan of Treatment Scheduled Orders Name Type Priority Associated Diagnoses Order Schedule REASSESSMENT PARAMETERS Respiratory Care Routine ONCE for 1 Occurrences starting 06/16/2023 until 06/16/2023 documented as of this encounter Procedures Procedure Name Priority Date/Time Associated Diagnosis Comments CARDIAC EKG ORDER 06/19/2023 1:3 8 PM PLANT ASSIGNER GLUCOSE - POINT OF CARE Routine 06/17/2023 12:08 PM PLANT ASSIGNER GLUCOSE - POINT OF CARE Routine 06/17/2023 8:00 AM PLANT ASSIGNER GLUCOSE - POINT OF CARE Routine 06/16/2023 10:49 PM PLANT ASSIGNER GLUCOSE - POINT OF CARE Routine 06/16/2023 8:45 PM PLANT ASSIGNER TROPONIN-I HIGH SENSITIVE REFLEX 1HOUR Timed 06/16/2023 4:44 PM PLANT ASSIGNER TROPONIN-I HIGH SENSITIVE BASELINE + 1HR STAT 06/16/2023 3:28 PM PLANT ASSIGNER B-TYPE NATRIURETIC PEPTIDE STAT 06/16/2023 3:28 PM PLANT ASSIGNER XR CHEST 1VW PORTABLE STAT 06/16/2023 3:17 PM PLANT ASSIGNER Shortness of breath CBC W AUTO DIFFERENTIAL STAT 06/16/2023 8:48 AM PLANT ASSIGNER COMPREHENSIVE METABOLIC PANEL STAT 06/16/2023 8:48 AM PLANT ASSIGNER EKG 12-LEAD STAT 06/16/2023 8:33 AM PLANT ASSIGNER Shortness of breath documented in this encounter Results * CARDIAC EKG ORDER (06/19/2023 1:38 PM PLANT ASSIGNER) Narrative 06/19/2023 1:38 PM PLANT ASSIGNER Ordered by an unspecified provider. Scanned Document CARDIAC SERVICES ORD ERABLES * (ABNORMAL) GLUCOSE - POINT OF CARE (06/17/2023 12:08 PM PLANT ASSIGNER) [facility] Glucose WB/POC 187(H) 70 - 115 mg/dL 06/17/2023 12:13 PM PLANT ASSIGNER [facility] Specimen Type Cap Fingerstick 2023 12:13 PM PLANT ASSIGNER [facility] Blood BLOOD SPECIMEN / Unknown 06/17/2023 12:08 PM PLANT ASSIGNER 06/17/2023 12:13 PM PLANT ASSIGNER Luis Armando Saravia MD LAB - POINT OF CARE ORDERABLES [facility] [address] [place] [id number], [facility] [phone] * (ABNORMAL) GLUCOSE - POINT OF CARE (06/17/2023 8:00 AM PLANT ASSIGNER) Glucose WB/POC 164(H) 70 - 115 mg/dL 06/17/2023 8:01 AM PLANT ASSIGNER [facility] Specimen Type Cap Fingerstick 2023 8:01 AM PLANT ASSIGNER [facility] Blood BLOOD SPECIMEN / Unknown 06/17/2023 8:00 AM PLANT ASSIGNER 06/17/2023 8:01 AM PLANT ASSIGNER Luis Armando Saravia MD LAB - POINT OF CARE ORDERABLES [address] [address], [place] [phone] * (ABNORMAL) GLUCOSE - POINT OF CARE (06/16/2023 10:49 PM PLANT ASSIGNER) Glucose WB/POC 235(H) 70 - 115 mg/dL 06/16/2023 10:49 PM PLANT ASSIGNER [facility] Specimen Type Cap Fingerstick 2023 10:49 PM PLANT ASSIGNER [facility] Blood BLOOD SPECIMEN / Unknown 06/16/2023 10:49 PM PLANT ASSIGNER 06/16/2023 10:49 PM PLANT ASSIGNER Provider Unknown LAB - POINT OF CARE ORDERABLES Performing Organization Address City/[facility]/ZIP Co de Phone Number [address] [address], [place] [phone] * (ABNORMAL) GLUCOSE - POINT OF CARE (06/16/2023 8:45 PM PLANT ASSIGNER) Glucose WB/POC 277(H) 70 - 115 mg/dL 06/16/2023 8:46 PM PLANT ASSIGNER [facility] Specimen Type Cap Fingerstick 2023 8:46 PM PLANT ASSIGNER [facility] Blood BLOOD SPECIMEN / Unknown 06/16/2023 8:45 PM PLANT ASSIGNER 06/16/2023 8:46 PM PLANT ASSIGNER Provider Unknown LAB - POINT OF CARE ORDERABLES [address] [address], [facility] [phone] * TROPONIN-I HIGH SENSITIVE REFLEX 1HOUR (06/16/2023 4:44 PM PLANT ASSIGNER) [facility] Troponin I High Sensitive <3 <=14 ng/L 06/16/2023 5:28 PM PLANT ASSIGNER [facility] Delta Troponin I HS 06/16/2023 5:28 PM PLANT ASSIGNER [facility] Comment:Result exceeds linea rity range. A delta value is unable to be calculated. Blood BLOOD SPECIMEN / Unknown Venipuncture / Unknown 06/16/2023 4:44 PM PLANT ASSIGNER 06/16/2023 4:50 PM PLANT ASSIGNER Roger Snowden MD LAB - CHEMISTRY ANGEL SPEARS [facility] [address] [place] [address], [facility] [phone] * B-TYPE NATRIURETIC PEPTIDE (06/16/2023 3:28 PM PLANT ASSIGNER) [facility] BNP 15 <100 pg/mL 06/16/2023 4:08 PM PLANT ASSIGNER [facility] Comment: A decision threshold of 100 pg/mL [...] Unknown Venipuncture / Unknown 06/16/2023 3:28 PM PLANT ASSIGNER 06/16/2023 3:37 PM PLANT ASSIGNER Roger Snowden MD LAB - CHEMISTRY ANGEL SPEARS Performing Organization Address [facility] de Phone Number [address] [address], [place] [phone] * TROPONIN-I HIGH SENSITIVE BASELINE + 1HR (06/16/2023 3:28 PM PLANT ASSIGNER) Troponin I High Sensitive <3 <=14 ng/L 06/16/2023 4:09 PM PLANT ASSIGNER [facility] Blood BLOOD SPECIMEN / Unknown Venipuncture / Unknown 06/16/2023 3:28 PM PLANT ASSIGNER 06/16/2023 3:37 PM PLANT ASSIGNER Roger Snowden MD LAB - CHEMISTRY ANGEL SPEARS Performing Organization Address [facility] Co de Phone Number [address] [address], [place] [phone] * XR CHEST 1VW PORTABLE (06/16/2023 3:17 PM PLANT ASSIGNER) Anatomical Region Laterality Modality Chest Radiographic Lizeth ging 06/16/2023 3:17 PM PLANT ASSIGNER Narrative 06/16/2023 4:20 PM PLANT ASSIGNER PROCEDURE: ??XR CHEST 1VW PORTABLE, DATE/TIME OF EXAM: ??06/16/2023 3:18 PM, LOCATION ??[facility] INDICATION: R06.02: Shortness of breath ADDITIONAL CLINICAL [...] intact. Report dictated by Ulises Sanford MD, (Purchaser). Raquel Perez MD have personally reviewed and interpreted this examination/study. > Interpreting Provider: Raquel Cedillo MD on 06/16/2023 4:20 PM Procedure Note Raquel Cedillo MD - 06/16/2023 PROCEDURE: XR CHEST 1VW PORTABLE, DATE/TIME OF EXAM: 06/16/2023 3:18PM, LOCATION [facility] INDICATION: R06.02: Shortness of breath ADDITIONAL CLINICAL [...] intact. Report dictated by Ulises Sanford MD, (Purchaser). Raquel Perez MD have personally reviewed and interpreted this examination/study. > Interpreting Provider: Raquel Cedillo MD on 06/16/2023 4:20 PM Roger Snowden MD DIAGNOSTIC IMAGING O RDERABLES * (ABNORMAL) COMPREHENSIVE METABOLIC PANEL (06/16/2023 8:48 AM PLANT ASSIGNER) [facility] BUN 14 7 - 26 mg/dL 06/16/2023 9:24 AM PLANT ASSIGNER [facility] Creatinine 0.63 0.56 - 0.96 mg/dL 06/16/2023 9:24 AM [facility] Sodium 135(L) 136 - 145 mmol/L 06/16/2023 9:24 AM [facility] Potassium 3.7 3.5 - 4.5 mmol/L 06/16/2023 9:24 AM [facility] Chloride 103 98 - 107 mmol/L 06/16/2023 9:24 AM [facility] CO2 24 22 - 29 mmol/L 06/16/2023 9:24 AM [facility] Glucose 250(H) 70 - 115 mg/dL 06/16/2023 9:24 AM [facility] Calcium 9.9 8.4 - 10.2 mg/dL 06/16/2023 9:24 AM [facility] Protein Total 8.9(H) 6.0 - 8.3 g/dL 06/16/2023 9:24 AM [facility] Albumin 3.5 3.4 - 5.0 g/dL 06/16/2023 9:24 AM [facility] Bilirubin Total 0.6 0.2 - 1.2 mg/dL 06/16/2023 9:24 AM [facility] Alkaline Phosphatase 82 40 - 150 U/L 06/16/2023 9:24 AM [facility] ALT 18 5 - 55 U/L 06/16/2023 9:24 AM [facility] AST 17 5 - 34 U/L 06/16/2023 9:24 AM [facility] Anion Gap 8 6 - 16 06/16/2023 9:24 AM [facility] BUN/Creatinine Ratio 22 7 - 23 06/16/2023 9:24 AM [facility] Osmolality Calculated 289 275 - 295 mOsm/kg 06/16/2023 9:24 AM [facility] Albumin/Globulin Ratio 0.6(L) 1.1 - 2.3 06/16/2023 9:24 AM [facility] eGFR by CKD-EPI >90 >=90 mL/min/1.7 3 m2 06/16/2023 9:24 AM [facility] Blood BLOOD SPECIMEN / Unknown Venipuncture / Unknown 06/16/2023 8:48 AM PLANT ASSIGNER 06/16/2023 8:53 AM PLANT ASSIGNER Roger Snowden MD LAB - CHEMISTRY ANGEL SPEARS [facility] [address] [place] [address], [facility] [phone] * CBC W AUTO DIFFERENTIAL (06/16/2023 8:48 AM [facility]) WBC 8.4 4.0 - 10.7 x10E9/L 06/16/2023 9:04 AM [facility] RBC Count 4.88 3.90 - 5.20 x10E12/L 06/16/2023 9:04 AM [facility] Hemoglobin 14.1 11.9 - 15.8 g/dL 06/16/2023 9:04 AM [facility] Hematocrit 43.6 34.8 - 46.1 % 06/16/2023 9:04 AM [facility] MCV 89.3 80.0 - 98.0 fL 06/16/2023 9:04 AM [facility] MCH 28.9 26.7 - 33.6 pg 06/16/2023 9:04 AM [facility] MCHC 32.3 31.7 - 36.3 g/dL 06/16/2023 9:04 AM [facility] RDW-CV 13.5 11.3 - 14.8 % 06/16/2023 9:04 AM [facility] Platelet Count 292 150 - 420 x10E9/L 06/16/2023 9:04 AM [facility] MPV 9.6 7.8 - 11.4 fL 06/16/2023 9:04 AM [facility] Neutrophil % 64.9 41.0 - 74.0 % 06/16/2023 9:04 AM [facility] Lymphocyte % 25.7 17.0 - 47.0 % 06/16/2023 9:04 AM [facility] Monocyte % 5.7 3.0 - 11.0 % 06/16/2023 9:04 AM [facility] Eosinophil % 3.0 0.0 - 7.0 % 06/16/2023 9:04 AM [facility] Basophil % 0.5 0.0 - 1.6 % 06/16/2023 9:04 AM [facility] Immature Granulocytes % 0.2 0.0 - 1.0 % 06/16/2023 9:04 AM [facility] Neutrophil Absolute 5.47 1.60 - 7.50 x10E9/L 06/16/2023 9:04 AM [facility] Lymphocyte Absolute 2.16 1.00 - 4.40 x10E9/L 06/16/2023 9:04 AM [facility] Monocyte Absolute 0.48 0.15 - 1.00 x10E9/L 06/16/2023 9:04 AM [facility] Eosinophil Absolute 0.25 0.00 - 0.60 x10E9/L 06/16/2023 9:04 AM [facility] Basophil Absolute 0.04 0.00 - 0.13 x10E9/L 06/16/2023 9:04 AM [facility] Blood BLOOD SPECIMEN / Unknown Venipuncture / Unknown 06/16/2023 8:48 AM PLANT ASSIGNER 06/16/2023 8:53 AM [facility] Roger Snowden MD LAB - HEMATOLOGY ORD ERABLES Performing Organization Address [facility]/State/ZIP Co de Phone Number [facility] [address] [place] [phone], [facility] [phone] * EKG 12-LEAD (06/16/2023 8:33 AM [facility]) Ventricular Rate 94 BPM SL MUSE Atrial Rate 94 BPM [facility] M[facility] P-R Interval 144 ms [facility] QRS Duration ms 80 ms [facility] Q-T Interval ms 364 ms [facility] QTC Calculation (Bezet) 455 ms [facility] Calculated P [place] 15 degrees [facility] Calculated R [place] 2 degrees [facility] Calculated T [place] 50 degrees [facility] Interpretation EKG NORMAL SINUS RHYTHM NONSPECIFIC T WAVE ABNORMALITY ABNORMAL ECG WHEN COMPARED WITH ECG OF 28-MAY-2023 16:24, NO SIGNIFICANT CHANGE WAS FOUND Confirmed by MAR ??DWAIN DURÁN ([id number]) on 06/24/2023 5:38:25 PM [facility] 06/16/2023 8:33 AM PLANT ASSIGNER 06/24/2023 5:38 PM PLANT ASSIGNER Roger Snowden MD ECG ORDERABLES Jeri SEQUEIRA documented in this encounter Visit Diagnoses Diagnosis Chronic midline low back pain without sciatica- Primary Shortness of breath Chronic midline low back pain without sciatica Chronic left-sided low back pain with left-sided sciatica documented in this encounter Administered Medications Inactive Administered Medications - up to 3 most recent administrations Medication Order MAR Action Action Date Dose Rate Site 0.9% NaCl injection 1-10 mL 1-10 mL, Intracatheter, PRN, Other, peripheral line flush, Starting on Mon06/16/23 at 0805, Until 06/17/23 at 1406, Flush peripheral IV catheter with 1-10 mL of normal saline before and after medications and prn to clear blood from the line or to verify patency. 0.9% NaCl injection 3 mL 3 mL, Intracatheter, EVERY 8 HOURS, First dose on Mon06/16/23 at 0845, Until Discontinued, Flush peripheral IV catheter with 3 mL of normal saline every 8 hours. $ Given 06/17/2023 4:53 AM PLANT ASSIGNER 3 mL $ Given 06/16/2023 10:09 PM PLANT ASSIGNER 3 mL $ Given 06/16/2023 3:25 PM PLANT ASSIGNER 3 mL acetaminophen (Tylenol) tablet 500 mg 500 mg, Oral, EVERY 6 HOURS, First dose on 06/17/23 at 0000, Until Discontinued, Patient preference for lesser PRN pain meds may be honored when the patient requests a less strong medication, a lower dose, or a less intrusive route of administration when the lesser drug, dose and route have been ordered for the patient. This patient request must be documented in the MAR. $ Given 06/17/2023 11:39 AM PLANT ASSIGNER 500 mg $ Given 06/17/2023 5:49 AM PLANT ASSIGNER 500 mg $ Given 06/17/2023 12:27 AM PLANT ASSIGNER 500 mg bisacodyl (Dulcolax) suppository 10 mg 10 mg, Rectal, DAILY PRN, Constipation, Starting on Mon06/16/23 at 2159, Until 06/17/23 at 1406 cyclobenzaprine (Flexeril) tablet 10 mg 10 mg, Oral, NOW, 1 dose, On Mon06/16/23 at 1515 $ Given 06/16/2023 3:16 PM PLANT ASSIGNER 10 mg dextrose 10 % IV bolus 12.5 g, at 468.75 mL/hr, Intravenous, PRN, Other, Bedside Glucose less than 70 mg/dL -If NOT able to eat and/or NPO and with IV Access, Starting on Mon06/16/23 at 2013, Until 06/17/23 at 1406, If NOT able to eat and/or NPO [...] NPO and with IV Access, Starting on Mon06/16/23 at 2013, Until 06/17/23 at 1406, If NOT able to eat and/or NPO [...] IV STAT NOTIFY PROVIDER OF HYPOGLYCEMIC EVENT. exemestane (Aromasin) tablet 25 mg 25 mg, Oral, DAILY, First dose on Mon06/17/23 at 0900, Until Discontinued $ Given 06/17/2023 8:33 AM PLANT ASSIGNER 25 mg glucagon (Glucagen) injection 1 mg 1 mg, Subcutaneous, PRN, Bedside Glucose less than 70 mg/dL - If NOT able to eat and/or NPO and withOUT IV Access, Starting on Mon06/16/23 at 2013, Until 06/17/23 at 1406, If NOT able to eat and/or NPO [...] Glucose less than 70 mg/dL, Starting on Mon06/16/23 at 2013, Until 06/17/23 at 1406, If able to take oral medications: For [...] for choices) NOTIFY PROVIDER OF HYPOGLYCEMIC EVENT. HYDROcodone-acetaminophen (Hiland) 10-325 MG tablet 1 tablet 1 tablet, Oral, EVERY 6 HOURS PRN, Moderate Pain, Starting on Mon06/16/23 at 2150, Until 06/17/23 at 1406, Patient preference for lesser PRN pain meds may be honored when the patient requests a less strong medication, a lower dose, or a less intrusive route of administration when the lesser drug, dose and route have been ordered for the patient. This patient request must be documented in the MAR. $ Given 06/17/2023 7:48 AM PLANT ASSIGNER 1 tablet HYDROmorphone (Dilaudid) injection 0.5 mg 0.5 mg, Intravenous, EVERY 2 HOURS PRN, Severe Pain, Moderate Pain, 3 doses, Starting on Mon06/16/23 at 1820, Until Mon06/16/23 at 2151, Patient preference for lesser PRN pain meds may be honored when the patient requests a less strong medication, a lower dose, or a less intrusive route of administration when the lesser drug, dose and route have been ordered for the patient. This patient request must be documented in the MAR. $ Given 06/16/2023 6:30 PM PLANT ASSIGNER 0.5 m g HYDROmorphone (Dilaudid) injection 0.6 mg 0.6 mg, Intravenous, EVERY 4 HOURS PRN, Severe Pain, Moderate Pain, Starting on Mon06/16/23 at 2200, Until 06/17/23 at 1406, Patient preference for lesser PRN pain meds may be honored when the patient requests a less strong medication, a lower dose, or a less intrusive route of administration when the lesser drug, dose and route have been ordered for the patient. This patient request must be documented in the MAR. $ Given 06/17/2023 4:52 AM PLANT ASSIGNER 0.6 mg $ Given 06/17/2023 1:10 AM PLANT ASSIGNER 0.6 mg $ Given 06/16/2023 9:56 PM PLANT ASSIGNER 0.6 mg HYDROmorphone (Dilaudid) injection 0.6 mg 0.6 mg, Intravenous, Once, 1 dose, On 06/17/23 at 1130, Patient preference for lesser PRN pain meds may be honored when the patient requests a less strong medication, a lower dose, or a less intrusive route of administration when the lesser drug, dose and route have been ordered for the patient. This patient request must be documented in the MAR. $ Given 06/17/2023 11:39 AM PLANT ASSIGNER 0.6 mg HYDROmorphone (Dilaudid) injection 1 mg 1 mg, Intravenous, NOW, 1 dose, On Mon06/16/23 at 1515, Patient preference for lesser PRN pain meds may be honored when the patient requests a less strong medication, a lower dose, or a less intrusive route of administration when the lesser drug, dose and route have been ordered for the patient. This patient request must be documented in the MAR. $ Given 06/16/2023 3:25 PM PLANT ASSIGNER 1 mg insulin aspart (NovoLOG) pen 0-12 Units 0-12 Units, Subcutaneous, 3 TIMES DAILY WITH MEALS, First dose on Mon06/17/23 at 0800, Until Discontinued, Standard Dose: Correction Insulin Bedside glucose should be done within 30-60 minutes of correction insulin administration. BG (mg/dL) Corrective Action LESS than 70 follow Hypoglycemic guidelines, 70-140 NO Correction insulin, 141-180 GIVE 2 units of insulin, 181-220 GIVE 4 units of insulin, 221-260 GIVE 6 units of insulin, 261-300 GIVE 8 units of insulin, 301-350 GIVE 10 units of insulin Greater than 350 GIVE 12 units of insulin and notify physician., If the patient is NPO; DO NOT HOLD correction insulin If patient is eating meals and has orders for Mealtime insulin, combine and give at the same time. $ Given 06/17/2023 12:14 PM PLANT ASSIGNER 4 Units Abd Right Upper Quadrant $ Given 06/17/2023 8:33 AM PLANT ASSIGNER 2 Units Le ft Arm insulin aspart (NovoLOG) pen 0-5 Units 0-5 Units, Subcutaneous, AT BEDTIME, First dose on Mon06/16/23 at 2100, Until Discontinued, Standard Dose: Correction Insulin Bedside glucose should be done within 30-60 minutes of correction insulin administration. BG (mg/dL) Corrective Action LESS than 70 follow Hypoglycemic guidelines, 70-180 NO Correction insulin, 181-220 GIVE 1 units of insulin, 221-260 GIVE 2 units of insulin, 261-300 GIVE 3 units of insulin, 301-350 GIVE 4 units of insulin Greater than 350 GIVE 5 units of insulin and notify physician. If the patient is NPO; DO NOT HOLD correction insulin If patient is eating meals and has orders for Mealtime insulin, combine and give at the same time. $ Given 06/16/2023 10:50 PM PLANT ASSIGNER 2 Units Right Arm insulin aspart (NovoLOG) pen 15 Units 15 Units, Subcutaneous, 3 TIMES DAILY WITH MEALS, First dose on 06/17/23 at 0800, Until Discontinued, Hold MEALTIME insulin if patient is NPO or eating less than 50% of meals. -OR- if carb intake for the meal is less than 30 grams. $ Given 06/17/2023 8:34 AM PLANT ASSIGNER 15 Units Left Arm insulin glargine (Lantus) pen 25 Units 25 Units, Subcutaneous, EVERY MORNING, First dose (after last modification) on Mon06/17/23 at 0700, Until Discontinued, DO NOT HOLD even if patient is NPO Consider calling physician for dose reduction if patient is made NPO. . WASTE DISPOSAL INSTRUCTIONS: Black Bin Disposal required. $ Given 06/17/2023 7:37 AM PLANT ASSIGNER 25 Units Abd Left Lower Quadrant lidocaine (Lidoderm) 5 % patch 1 patch 1 patch, Administer over 12 Hours, EVERY 24 HOURS, First dose on Mon06/16/23 at 2200, Until Discontinued, Apply to back pain and remove patch after a max of 12 hours of application within a 24 hour period. $ Applied 06/16/2023 10:09 PM PLANT ASSIGNER 1 patch Back naloxone (Narcan) injection 0.4 mg 0.4 mg, Intravenous, PRN, Other, respiratory depression., Starting on Mon06/16/23 at 2158, Until Mon06/17/23 at 1406 polyethylene glycol 3350 (Miralax) packet 17 g 17 g, Oral, DAILY PRN, Constipation, Starting on Mon06/16/23 at 2159, Until Mon06/17/23 at 1406, Mix in 8 ounces of water, juice, soda, coffee or tea prior to administration prochlorperazine (Compazine) injection 5 mg 5 mg, Intravenous, ONCE, 1 dose, On Mon06/16/23 at 1745, Max intravenous rate = 5 mg/min $ Given 06/16/2023 5:39 PM PLANT ASSIGNER 5 mg rivaroxaban (Xarelto) tablet 20 mg 20 mg, Oral, DAILY WITH FOOD, First dose on 06/17/23 at 0900, Until Discontinued, For tube administration, please refer to the MAR References links: Administration Dose of 15 mg or greater should be taken with food $ Given 06/17/2023 8:34 AM PLANT ASSIGNER 20 mg rOPINIRole (Requip) tablet 5 mg 5 mg, Oral, AT BEDTIME, First dose on Mon06/16/23 at 2115, Until Discontinued $ Given 06/16/2023 9:06 PM PLANT ASSIGNER 5 mg senna-docusate (Senokot-S) tablet 1 tablet 1 tablet, Oral, DAILY PRN, Constipation, Starting on Mon06/16/23 at 2159, Until 06/17/23 at 1406 tolterodine ER 24hr (Detrol LA) capsule 4 mg 4 mg, Oral, DAILY, First dose on 06/17/23 at 0900, Until Discontinued, Do not crush or chew. $ Given 06/17/2023 8:32 AM PLANT ASSIGNER 4 mg documented in this encounter Active and Recently Administered Medications Times are shown in PL[employer] ASSIGNER. Scheduled Medication Order 06/15/2023 06/16/2023 06/17/2023 0.9% NaCl injection 3 mL(Linked Group 1) 3 mL, Intracatheter, EVERY 8 HOURS, First dose on Mon06/16/23 at 0845, Until Discontinued, Flush peripheral IV catheter with 3 mL of normal saline every 8 hours. 1525 ($ Given - Provider: Ely Hardin RN)1540 (Not Administered - Provider: Brian Duval RN - Reason: IV Currently Infusing)2209 ($ Given - Provider: Lila Lal RN) 0453 ($ Given - Provider: Albert Carrasco RN) acetaminophen (Tylenol) tablet 500 mg 500 mg, Oral, EVERY 6 HOURS, First dose on Mon06/17/23 at 0000, Until Discontinued, Patient preference for lesser PRN pain meds may be honored when the patient requests a less strong medication, a lower dose, or a less intrusive route of administration when the lesser drug, dose and route have been ordered for the patient. This patient request must be documented in the MAR. 0027 ($ Given - Provider: Albert Carrasco RN)0582 ($ Given - Provider: Albert Carrasco RN)1139 ($ Given - Provider: Fabiola Roberts, NURIS) cyclobenzaprine (Flexeril) tablet 10 mg (COMPLETED) 10 mg, Oral, NOW, 1 dose, On Mon06/16/23 at 1515 1516 ($ Given - Provider: Ely Hardin RN) exemestane (Aromasin) tablet 25 mg 25 mg, Oral, DAILY, First dose on 06/17/23 at 0900, Until Discontinued 0833 ($ Given - Provider: Fabiola Roberts RN) HYDROmorphone (Dilaudid) injection 0.6 mg (COMPLETED) 0.6 mg, Intravenous, Once, 1 dose, On 06/17/23 at 1130, Patient preference for lesser PRN pain meds may be honored when the patient requests a less strong medication, a lower dose, or a less intrusive route of administration when the lesser drug, dose and route have been ordered for the patient. This patient request must be documented in the MAR. 1139 ($ Given - Provider: Fabiola Roberts RN) HYDROmorphone (Dilaudid) injection 1 mg (COMPLETED) 1 mg, Intravenous, NOW, 1 dose, On 06/16/23 at 1515, Patient preference for lesser PRN pain meds may be honored when the patient requests a less strong medication, a lower dose, or a less intrusive route of administration when the lesser drug, dose and route have been ordered for the patient. This patient request must be documented in the MAR. 1525 ($ Given - Provider: Ely Hardin RN) insulin aspart (NovoLOG) pen 0-12 Units 0-12 Units, Subcutaneous, 3 TIMES DAILY WITH MEALS, First dose on 06/17/23 at 0800, Until Discontinued, Standard Dose: Correction Insulin Bedside glucose should be done within 30-60 minutes of correction insulin administration. BG (mg/dL) Corrective Action LESS than 70 follow Hypoglycemic guidelines, 70-140 NO Correction insulin, 141-180 GIVE 2 units of insulin, 181-220 GIVE 4 units of insulin, 221-260 GIVE 6 units of insulin, 261-300 GIVE 8 units of insulin, 301-350 GIVE 10 units of insulin Greater than 350 GIVE 12 units of insulin and notify physician., If the patient is NPO; DO NOT HOLD correction insulin If patient is eating meals and has orders for Mealtime insulin, combine and give at the same time. 0833 ($ Given - Provider: Fabiola Roberts RN)1214 ($ Given - Provider: Fabiola Roberts RN) insulin aspart (NovoLOG) pen 0-5 Units 0-5 Units, Subcutaneous, AT BEDTIME, First dose on Mon06/16/23 at 2100, Until Discontinued, Standard Dose: Correction Insulin Bedside glucose should be done within 30-60 minutes of correction insulin administration. BG (mg/dL) Corrective Action LESS than 70 follow Hypoglycemic guidelines, 70-180 NO Correction insulin, 181-220 GIVE 1 units of insulin, 221-260 GIVE 2 units of insulin, 261-300 GIVE 3 units of insulin, 301-350 GIVE 4 units of insulin Greater than 350 GIVE 5 units of insulin and notify physician. If the patient is NPO; DO NOT HOLD correction insulin If patient is eating meals and has orders for Mealtime insulin, combine and give at the same time. 2250 ($ Given - Provider: Lila Lal RN) insulin aspart (NovoLOG) pen 15 Units 15 Units, Subcutaneous, 3 TIMES DAILY WITH MEALS, First dose on Mon06/17/23 at 0800, Until Discontinued, Hold MEALTIME insulin if patient is NPO or eating less than 50% of meals. -OR- if carb intake for the meal is less than 30 grams. 0834 ($ Given - Provider: Fabiola Roberts RN)1216 (Not Administered - Provider: Fabiola Roberts RN - Reason: Refused-Patient) insulin glargine (Lantus) pen 25 Units 25 Units, Subcutaneous, EVERY MORNING, First dose (after last modification) on Mon06/17/23 at 0700, Until Discontinued, DO NOT HOLD even if patient is NPO Consider calling physician for dose reduction if patient is made NPO. . WASTE DISPOSAL INSTRUCTIONS: Black Bin Disposal required. 0737 ($ Given - Provider: Fabiola Roberts RN) lidocaine (Lidoderm) 5 % patch 1 patch 1 patch, Administer over 12 Hours, EVERY 24 HOURS, First dose on Mon06/16/23 at 2200, Until Discontinued, Apply to back pain and remove patch after a max of 12 hours of application within a 24 hour period. 2209 ($ Applied - Provider: Lila Lal, NURIS) 0839 (Removed - Provider: Fabiola Roberts, NURIS) prochlorperazine (Compazine) injection 5 mg (COMPLETED) 5 mg, Intravenous, ONCE, 1 dose, On Mon06/16/23 at 1745, Max intravenous rate = 5 mg/min 1739 ($ Given - Provider: Jerry Bee, NURIS) rivaroxaban (Xarelto) tablet 20 mg 20 mg, Oral, DAILY WITH FOOD, First dose on 06/17/23 at 0900, Until Discontinued, For tube administration, please refer to the MAR References links: Administration Dose of 15 mg or greater should be taken with food 0834 ($ Given - Provider: Fabiola Roberts, NURIS) rOPINIRole (Requip) tablet 5 mg 5 mg, Oral, AT BEDTIME, First dose on Mon06/16/23 at 2115, Until Discontinued 2105 ($ Given - Provider: Manuel Duncan, NURIS) tolterodine ER 24hr (Detrol LA) capsule 4 mg 4 mg, Oral, DAILY, First dose on 06/17/23 at 0900, Until Discontinued, Do not crush or chew. 0832 ($ Given - Provider: Fabiola Roberts, NURIS) PRN Medication Order 06/15/2023 06/16/2023 06/17/2023 0.9% NaCl injection 1-10 mL(Linked Group 1) 1-10 mL, Intracatheter, PRN, Other, peripheral line flush, Starting on Mon06/16/23 at 0805, Until 06/17/23 at 1406, Flush peripheral IV catheter with 1-10 mL of normal saline before and after medications and prn to clear blood from the line or to verify patency. bisacodyl (Dulcolax) suppository 10 mg 10 mg, Rectal, DAILY PRN, Constipation, Starting on Mon06/16/23 at 2159, Until 06/17/23 at 1406 dextrose 10 % IV bolus(Linked Group 2) 12.5 g, at 468.75 mL/hr, Intravenous, PRN, Other, Bedside Glucose less than 70 mg/dL -If NOT able to eat and/or NPO and with IV Access, Starting on Mon06/16/23 at 2014, Until 06/17/23 at 1406, If NOT able to eat and/or NPO [...] EVENT. dextrose 10 % IV bolus(Linked Group 2) 25 g, at 937.5 mL/hr, Intravenous, PRN, Other, Bedside Glucose less than 70 mg/dL -If NOT able to eat and/or NPO and with IV Access, Starting on Mon06/16/23 at 2013, Until 06/17/23 at 1406, If NOT able to eat and/or NPO [...] IV STAT NOTIFY PROVIDER OF HYPOGLYCEMIC EVENT. glucagon (Glucagen) injection 1 mg(Linked Group 2) 1 mg, Subcutaneous, PRN, Bedside Glucose less than 70 mg/dL - If NOT able to eat and/or NPO and withOUT IV Access, Starting on Mon06/16/23 at 2013, Until 06/17/23 at 1406, If NOT able to eat and/or NPO [...] Glucose less than 70 mg/dL, Starting on Mon06/16/23 at 2013, Until 06/17/23 at 1406, If able to take oral medications: For [...] for choices) NOTIFY PROVIDER OF HYPOGLYCEMIC EVENT. HYDROcodone-acetaminophen (Hiland) 10-325 MG tablet 1 tablet 1 tablet, Oral, EVERY 6 HOURS PRN, Moderate Pain, Starting on Mon06/16/23 at 2150, Until 06/17/23 at 1406, Patient preference for lesser PRN pain meds may be honored when the patient requests a less strong medication, a lower dose, or a less intrusive route of administration when the lesser drug, dose and route have been ordered for the patient. This patient request must be documented in the JUN. 07 ($ Given - Provider: Fabiola Roberts RN) HYDROmorphone (Dilaudid) injection 0.5 mg (CANCELED) 0.5 mg, Intravenous, EVERY 2 HOURS PRN, Severe Pain, Moderate Pain, 3 doses, Starting on Mon06/16/23 at 1820, Until Mon06/16/23 at 2151, Patient preference for lesser PRN pain meds may be honored when the patient requests a less strong medication, a lower dose, or a less intrusive route of administration when the lesser drug, dose and route have been ordered for the patient. This patient request must be documented in the JUN. 183 ($ Given - Provider: Brian Duval RN) HYDROmorphone (Dilaudid) injection 0.6 mg 0.6 mg, Intravenous, EVERY 4 HOURS PRN, Severe Pain, Moderate Pain, Starting on Mon06/16/23 at 2200, Until 06/17/23 at 1406, Patient preference for lesser PRN pain meds may be honored when the patient requests a less strong medication, a lower dose, or a less intrusive route of administration when the lesser drug, dose and route have been ordered for the patient. This patient request must be documented in the MAR. 2155 ($ Given - Provider: Lila Lal RN - Comment: given now per provider order.) 0110 ($ Given - Provider: Albert Carrasco, NURIS)0452 ($ Given - Provider: Albert Carrasco RN) naloxone (Narcan) injection 0.4 mg 0.4 mg, Intravenous, PRN, Other, respiratory depression., Starting on Mon06/16/23 at 2158, Until 06/17/23 at 1406 polyethylene glycol 3350 (Miralax) packet 17 g 17 g, Oral, DAILY PRN, Constipation, Starting on Mon06/16/23 at 2159, Until 06/17/23 at 1406, Mix in 8 ounces of water, juice, soda, coffee or tea prior to administration senna-docusate (Senokot-S) tablet 1 tablet 1 tablet, Oral, DAILY PRN, Constipation, Starting on Mon06/16/23 at 2159, Until 06/17/23 at 1406 Linked Groups Order Group 1: SALINE LOCK, INSERT AND MAINTAIN (CANCELED) Routine, CONTINUOUS, Starting on Mon06/16/23 at 0815, Until Specified, New collection, Task Completed: Yes And 0.9% NaCl injection 3 mLJump to med 3 mL, Intracatheter, EVERY 8 HOURS, First dose on Mon06/16/23 at 0845, Until Discontinued, Flush peripheral IV catheter with 3 mL of normal saline every 8 hours. And 0.9% NaCl injection 1-10 mLJump to med 1-10 mL, Intracatheter, PRN, Other, peripheral line flush, Starting on Mon06/16/23 at 0805, Until 06/17/23 at 1406, Flush peripheral IV catheter with 1-10 mL of normal saline before and after medications and prn to clear blood from the line or to verify patency. Group 2: dextrose 10 % IV bolusJump to med 12.5 g, at 468.75 mL/hr, Intravenous, PRN, Other, Bedside Glucose less than 70 mg/dL -If NOT able to eat and/or NPO and with IV Access, Starting on Mon06/16/23 at 2013, Until 06/17/23 at 1406, If NOT able to eat and/or NPO [...] NPO and with IV Access, Starting on Mon06/16/23 at 2013, Until 06/17/23 at 1406, If NOT able to eat and/or NPO [...] NPO and withOUT IV Access, Starting on Mon06/16/23 at 2013, Until 06/17/23 at 1406, If NOT able to eat and/or NPO and NO IV Access: For Bedside glucose 54- 69 mg/dL ? - Give 1 mg subcutaneous [...] gently; use immediately and discard unused portion documented in this encounter Care Teams Drop Count Associate Relationship Specialty Start Date End Date Justen Gale MD PCP - General 07/05/21 documented as of this encounter
--- OUTSIDE RECORDS SUMMARY | 2024-04-26 02:31 | XMS_ITS | Encounter Summary ---
Author Organization [facility] Address [address] [place] [address] Care Team Providers Care Hooker Operator Name Role Phone Justen Gale MD Primary Care Provider [phone] Reason for Visit * Reason Comments Pain Back Pt c/o severe back p ain x 48 hours. Pt states she has a stimulator for chronic back pain after surgery. Pt also c/o numbness and tingling on her right hand and feels like pins and needles on her left arm. Pt also c/o bilateral leg pain. Pt also c/o nausea x 8 weeks with a 20lb weight loss. * Auth/Cert (Routine) Specialty Diagnoses / Procedures Referred By Contac t Referred To Contact Referral ID Status Reason Start Date Expiration Date Visits Re quested Visits Authorized [id number] 1 1 Encounter Details Date Type Department Care Team (Latest Contact Info) Description 04/18/2023 1:06 AM CIRCUS RIDER - 04/20/2023 2:30 PM [facility] Hospital Encounter HC 2 ORTHO/NEW VIS [address] [place] [address] Lalit Matthew DO [address] [facility] [address] [place] [address] Ajay Barrera MD [address] [place] [id number] Mary Velasquez MD [address] [address] [place] B[place] [address] [place] [address] [place] [address] [place] [address] Emergency Medicine Discharge Disposition: Home or Self Care Social History Tobacco Use Types Packs/Day Years Used Date Smoking Tobacco: Former Cigarettes Q uit: 12/05/1977 Smokeless Tobacco: Never Alcohol Use Standard Drinks/Week Comments No 0 (1 standard drink = 0.6 oz pur e alcohol) AUDIT-C Answer Date Recorded Q1: How often do you have a drink containing alcohol? Never 02/22/2023 Q2: How many drinks containi ng alcohol do you have on a typical day when you are drinking? Patient does not drink Q3: How often do you have si x or more drinks on one occasion? Never 02/22/2023 Overall Financial Resource Strain (CARDIA) Answe r Date Recorded How hard is it for you to pa y for the very basics like food, housing, medical care, and heating? Not hard at all 02/22/2023 [facility] [place] [facility] - Occupational Stress Questionnaire Answer Date Recorded Do you feel stress - tense, restless, nervous, or anxious, or unable to sleep at night because your mind is troubled all the time - these days? Not at all 02/22/2023 Hunger Vital Sign Answer Date Recorded Within the past 12 months, y ou worried that your food would run out before you got the money to buy more. Never true 02/23/20 23 Within the past 12 months, t he food you bought just didn't last and you didn't have money to get more. Never true 02/22/2023 PRAPARE - Transportation Answer Date Re corded In the past 12 months, has l ack of transportation kept you from medical appointments or from getting medications? No 04/2022 In the past 12 months, has l ack of transportation kept you from meetings, work, or from getting things needed for daily living? No 02/22/2023 Housing Stability Vital Sign Answer [place] e Recorded In the last 12 months, was t here a time when you were not able to pay the mortgage or rent on time? No 02/22/2023 In the last 12 months, how many places have you lived? 1 02/22/2023 In the last 12 months, was t here a time when you did not have a steady place to sleep or slept in a halfway (including now)? No 02/22/2023 Sex and Gender Information Value Date Recorded Sex Assigned at Not on file Gender Identity Not on file Sexual Orientation Not on file documented as of this encounter Last Filed Vital Signs Vital Sign Reading Time Taken Comments Blood Pressure 144/84 04/20/2023 11:43 AM CIRCUS RIDER Pulse 70 04/20/2023 11:43 AM CIRCUS RIDER Temperature 36.8 ??C (98.2 ??F) 04/20/2023 1 1:43 AM CIRCUS RIDER Respiratory Rate 18 04/20/2023 11:4 3 AM CIRCUS RIDER Oxygen Saturation 92% 04/20/2023 11: 43 AM CIRCUS RIDER Inhaled Oxygen Concentration - - Weight 126.4 kg (278 lb 10.6 oz) 04/19/2023 3:56 AM CIRCUS RIDER Height 154.9 cm (5' 0.98 ) 04/18/2023 1 0:00 AM CIRCUS RIDER Body Mass Index 52.68 04/18/2023 10:00 AM CIRCUS RIDER documented in this encounter Functional Status Functional [...] as of this encounter Discharge Summaries * Mary Velasquez MD - 04/20/2023 9:55 AM CST HOSPITALIST DISCHARGE SUMMARY NAME: Karly Marques : 1955 DATE OF ADMISSION: 04/18/2023 DATE OF DISCHARGE: 04/20/2023 FINAL DIAGNOSES: ??? Include all new and active diagnoses. Low back pain with radiation to the left lower extremity History of spinal stimulator Type 2 diabetes mellitus-??LUL on CPAP-?? Hypertension??-?? History of breast cancer-??History of??PE Chronic urinary incontinence?? DISCHARGE DESTINATION: Home FOLLOW UP PLAN: Include list of active issues: ??? Next steps ? ? Testing & Referrals Scheduled: ? ? Testing & Referrals TBD: ??? Timing ??? Provider 1. PCP 2. Neurosurgery 3. urology PENDING TEST RESULTS: INCIDENTAL FINDINGS REQUIRING FOLLOW UP: READMISSION RISK SCORE: 21+: high 30 day readmission risk 0-20: low-moderate 30 day readmission risk 27 at 9:55 AM 04/20/2023. Secondary/Resolved/Significant Prior Diagnoses: HOSPITAL COURSE: (include consults and procedure details) Patient is a 67y/o female, w/ PMH of refractory axial low back pain s/p T8-9 laminectomy for placement of spinal stimulator (with Dr. Gregg in 02/13), DVT/PE (on Xarelto), GERD, DM and LUL, who presented to [place] ED on 04/17/23 w/ c/o acute on chronic back pain for 2 days. Pain radiates from left low back to left hip and down entire left leg. Denies any injury or trauma. Patient was given IV morphine with no relief in the ED and was thus admitted for pain control. Neurosurgery consulted started on steroids , PT/OT consulted , abbot stimulator rep made adjustments to her device , she wasgiven a dose of fosfomycin for her cystitis , ( allergic to all other options) and discharged home in stable condition. POA ACTIVATED STATUS: NO RADIOLOGY: (last 7 days) + additional pertinent studies No results found. ADDITIONAL PERTINENT STUDIES: RECENT/NOTABLE LABS: include pertinent positives Recent Labs Component Name 04/19/23 0252 SODIUM 136 POTASSIUM 4.2 CHLORIDE 100 CO2 26 BUN 25 CREATININE 0.86 EGFR 74* Recent Labs Component Name 04/19/23 0252 WBC 13.5* HGB 11.5* HCT 36.7 PLTCOUNT 300 Recent Labs Component Name 02/21/23 1830 02/17/23 1838 02/16/23 1220 INR 1.0 1.0 1.2* VITALS/MENTAL STATUS/NOTIBLE EXAM FINDINGS Most recent weight: Weight: 126.4 kg (278 lb 10.6 oz) (04/19/23 0356) BP 156/98 (BP Cuff Size: A) Pulse 69 Temp 97.9 ??F (36.6 ??C) (Oral) Resp 18 Ht 1.549 m (5'0.98 ) Wt 126.4 kg (278 lb 10.6 oz) SpO2 92% Exam: General appearance: in no acute distress, Lungs: clear to auscultation Heart: regular rhythm, no murmur Abdomen: soft and non tender Extremities: moves all extremities, without edema ?? DISCHARGE MEDICATIONS AND ALLERGIES This list of medications is preliminary and tentative: please see the Patient Discharge Instructions for patients discharged home or the Facility Transfer Order for the final and accurate medication list. Current Discharge Medication List START taking these medications Instructions Authorizing Provider acetaminophen 500 MG tablet Commonly known as: Tylenol Quantity Dispensed: 60 tablet Take 2 (two) tablets by mouth every 12 hours Maximum allowable Acetaminophen amount = 4 Grams (4000mg) / 24 hours. Mary Velasquez MD lidocaine 5 % patch Commonly known as: Lidoderm Quantity Dispensed: 18 patch Apply 1 (one) patch to skin every 24 hours Apply patch to most painful area and remove after 12 hours. May reapply a new patch 12 hours later. Mary Velasquez MD methylPREDNISolone 4 MG tablet Commonly known as: Medrol Quantity Dispensed: 8 tablet Take 1 (one) tablet by mouth every 6 hours 4 mg q.6 hours for 1 days, taper to Q 8 hours for 2 days, and q.12 hours for 2 days Mary Velasquez MD CONTINUE taking these medications which have NOT CHANGED Instructions Authorizing Provider amitriptyline 25 MG tablet Commonly known as: Elavil at bedtime B-D ULTRAFINE III SHORT PEN 31G X 8 MM needle Generic drug: insulin pen needle Quantity Dispensed: 300 Each 4 times daily Mckenzie Johnston MD exemestane 25 MG tablet Commonly known as: Aromasin Take 1 (one) tablet by mouth DAILY HumaLOG KwikPen 100 UNIT/ML pen Generic drug: insulin lispro 22 (twenty two) Units 3 times daily before meals hydroCHLOROthiazide 12.5 MG capsule Commonly known as: Microzide Take 1 (one) capsule by mouth once daily HYDROcodone-acetaminophen 10-325 MG tablet Commonly known as: Bellwood Take 1 (one) tablet by mouth every 8 hours as needed for Pain Takes 3-4 times a day hydrOXYzine HCl 25 MG tablet Commonly known as: Atarax Quantity Dispensed: 30 tablet Take 1 (one) tablet by mouth 3 times daily as needed for Itching Estrella Dunbar MD Lantus SoloStar pen Generic drug: insulin glargine ADMINISTER 50 UNITS UNDER THE SKIN EVERY MORNING methenamine hippurate 1 GM tablet Commonly known as: Hiprex Quantity Dispensed: 60 tablet TAKE 1 TABLET BY MOUTH TWICE DAILY ITA Jones methocarbamol 500 MG tablet Commonly known as: Robaxin Quantity Dispensed: 60 tablet Take 1 (one) tablet by mouth every 6 hours as needed for Muscle Spasms ITA Patel ONETOUCH DELICA PLUS 33G EXTRA FINE LANCET USE FOUR TIMES DAILY OneTouch Ultra test strip Generic drug: blood glucose 4 times daily oxyBUTYnin CR 24hr 15 MG tablet Commonly known as: Ditropan XL Quantity Dispensed: 90 tablet Take 1 (one) tablet by mouth once daily ITA Jones rivaroxaban 20 MG tablet Commonly known as: Xarelto Take 1 (one) tablet by mouth daily with food Reasons: Blockage of Blood Vessel to Lung by a Particle, Blood Clot in a Deep Vein rOPINIRole 5 MG tablet Commonly known as: Requip TAKE 1 TABLET BY MOUTH EVERY NIGHT STOP taking these medications naloxone HCl 4 MG/0.1ML nasal spray Commonly known as: Narcan ALLERGIES: Allergies Allergen Reactions ??? Latex Rash ??? Ceftriaxone Anaphylaxis and Shortness of Breath R ??? Cephalosporins Anaphylaxis and Shortness of Breath ??? Lorazepam Other and Unknown Aggrevates restless leg syndrome ??? Trazodone Anaphylaxis and Other Shaky, restlessness, itching, throat swelling ??? Levofloxacin Urticaria and Skin Reactions ??? Macrobid [Nitrofurantoin] Rash ??? Lisinopril Swelling ??? Ketorolac Itching ??? Metoclopramide Other Twitching ??? Oxycodone Nausea and/or Vomiting ??? Pregabalin Other ??? Ceftriaxone Sodium In Dextrose Shortness of Breath ??? Piperacillin-Tazobactam In D5w Rash ??? Bactrim [Sulfamethoxazole W-Trimethoprim] Vomiting ??? Reslizumab Unknown ??? Skin Adhesives Skin Reactions DISCHARGE INSTRUCTIONS Why you were hospitalized Your discharge diagnosis is: Back pain [200033] Follow up with Primary Care Provider (PCP) Our records show your Primary Care Provider (PCP) is Justen Gale MD. Follow Up Instructions for Patient: Within 5 Days from Discharge Follow up with provider Follow Up Instructions for Patient: Within 14 Days from Discharge ISOLATION PRECAUTIONS No active isolations. Isolation due to No active infections. I spent 32 minutes in addition to direct patient care summarizing this patient's hospital stay, reviewing and updating the inpatient problem list, reviewing discharge medications, instructions, discussing discharge care planand discharge follow up labs/studies/doctor visits with the patient and or POA/family. Mary Velasquez MD US RIDER documented in this encounter Medications at Time of Discharge Medication Sig Dispensed Refills Start Date End Date exemestane (AROMASIN) 25 MG tablet Take 1 [...] patch 12 hours later. 18 patch 04/20/2023 ONETOUCH ULTRA test strip 4 times daily 02/01/2021 rivaroxaban (Xarelto) 20 MG tabletIndications:De ep Vein Thrombosis,Pulmonary Embolism Take 1 (one) tablet by mouth daily with food Reasons: Blockage of Blood Vessel to Lung by a Particle, Blood Clot in a Deep Vein rOPINIRole (REQUIP) 5 MG tablet TAKE 1 TABLET BY MOUTH EVERY NIGHT 06/09/2021 acetaminophen (Tylenol) 500 MG tablet Take 2 (two) tablets by mouth every 12 hours Maximum allowable Acetaminophen amount = 4 Grams (4000 mg) / 24 hours. 60 tablet 04/20/2023 05/19/2023 amitriptyline (ELAVIL) 25 MG tabletIndications:fo r restless legs Take 1 (one) tablet by mouth at bedtime Reasons: for restless legs 06/05/2023 hydroCHLOROthiazide (Microzide) 12.5 MG capsule Take 1 (one) capsule by mouth once daily 07/17/2022 05/19/2023 HYDROcodone-acetamin ophen (Bellwood) 10-325 MG tablet Take 1 (one) tablet by mouth every 8 hours as needed for Pain Takes 3-4 times a day 05/20/2023 methenamine hippurate (Hiprex) 1 GM tablet TAKE 1 TABLET BY MOUTH TWICE DAILY 60 tablet 3 12/14/2022 07/12/2023 methocarbamol (Robaxin) 500 MG tablet Take 1 (one) tablet by mouth every 6 hours as needed for Muscle Spasms 60 tablet 02/16/2023 05/19/2023 methylPREDNISolone (Medrol) 4 MG tablet Take 1 (one) tablet by mouth every 6 hours 4 mg q.6 hours for 1 days, taper to Q 8 hours for 2 days, and q.12 hours for 2 days 14 tablet 04/20/2023 05/19/2023 oxyBUTYnin CR 24hr (Ditropan XL) 15 MG tablet Take 1 (one) tablet by mouth once daily 90 tablet 4 08/15/2022 03/08/2024 documented as of this encounter Progress Notes * Mary Velasquez MD - 04/19/2023 3:31 PM CST [facility] Hospitalist Progress Note Admit Date: 04/18/2023 1:06 AM Hospital Day: 1 Clinical Course 67 year old female w/PMHx significant for type 2 diabetes mellitus, breast cancer, chronic back pain status post spinal stimulator placement complicated by infection of the battery requiring replacement, LUL, depression, peripheral neuropathy,PE on AC. Patient presented to the hospital with increasing lower back pain that started 2 days ago New Symptoms Back pain better Exam Vitals: 04/19/23 0356 04/19/23 0359 04/19/23 0757 04/19/23 1128 BP: 145/83 128/85 132/67 Pulse: 68 70 73 66 Resp: 24 18 18 18 Temp: 97.8 ??F (36.6 ??C) 98 ??F (36.7 ??C) 97.7 ??F (36.5 ??C) SpO2: 95% 95% 91% 96% Weight: 126.4 kg (278 lb 10.6 oz) Height: General appearance: in no acute distress, Lungs: clear to auscultation Heart: regular rhythm, no murmur Abdomen: soft and non tender Extremities: moves all extremities, without edema Data Reviewed all labs and imaging MEDICATIONS FOR CURRENT ENCOUNTER: ?? SCHEDULED MEDICATIONS: ??? 0.9% NaCl 3 mL Intracatheter q8h ??? acetaminophen 1,000 mg Oral q8h ??? amitriptyline 25 mg Oral AT BEDTIME ??? exemestane 25 mg Oral QDAY ??? hydroCHLOROthiazide 12.5 mg Oral QDAY ??? insulin aspart 0-12 Units Subcutaneous TID WC ??? insulin aspart 0-5 Units Subcutaneous AT BEDTIME ??? insulin aspart 15 Units Subcutaneous TID WC ??? insulin glargine 45 Units Subcutaneous QAM ??? lidocaine 1 patch Transdermal q24h ??? methocarbamol 500 mg Oral q8h ??? methylPREDNISolone 4 mg Oral q6h ??? rivaroxaban 20 mg Oral QDAY WITH FOOD ??? rOPINIRole 5 mg Oral AT BEDTIME ??? senna 8.6 mg Oral QDAY ??? tolterodine ER 24hr 4 mg Oral QDAY ?? PRN MEDICATIONS: ??? SALINE LOCK, INSERT AND MAINTAIN AND 0.9% NaCl AND 0.9% NaCl ??? dextrose IV for hypoglycemia OR dextrose IV for hypoglycemia OR glucagon ??? glucose (Diabetic Use) OR glucose (Diabetic Use) gel OR glucose chew tab ??? hydrOXYzine HCl ??? morphine ??? ondansetron (disintegrating) OR ondansetron ??? oxyCODONE (immediate release) OR oxyCODONE (immediate release) ??? polyethylene glycol 3350 Assessment and Plan Low back pain with radiation to the left lower extremity History of spinal stimulator - started oral steroids methylprednisolone 4 mg q.6 hours for 2 days, taper to Q 8 hours for 2 days, and q.12 hours for 2 days - continue pain regimen with home dose Bellwood 10 q.6 p.r.n. for severe pain, p.r.n. IV morphine changed to q12 - neurosurgery consulted, recommended steroids as above, nerve stimulator rep for settings - no signs of infection locally - PTOT ?? Type 2 diabetes mellitus- Lantus 45 units will increase, NovoLog 15 units t.i.d. plus MDSSI LUL on CPAP- continue CPAP Hypertension - continue home hydrochlorothiazide History of breast cancer- continue exemestane History of PE - continue home Xarelto Chronic urinary incontinence - continue home medications including MA Disposition: . Patient likely discharge tomorrow READMISSION RISK SCORE is 27 at 3:31 PM 04/19/2023. Mary Velasquez MD, Date of Service: 04/19/23 Please be advised that voice recognition software has been used on this chart and inadvertent errors may occur. These may not represent a true interpretation of the dictation given. US RIDER * Neha Castillo, PT - 04/19/2023 9:25 AM CST Physical Therapy Evaluation. PT orders received, chart reviewed for diagnosis and medical systems review.. Nursing consents for PT. Explained purpose of PT and patient consented to participate in therapy. RECOMMENDATIONS/PLAN: PT Discharge Recommendations: Patient at baseline per therapy evaluation and has no further skilledtherapy needs while in hospital PPE worn by staff: gloves;mask - surgical PPE worn by patient: gown - patient, clean AM-PAC Basic mobility score for this patient is Mobility Raw Score:: 24 SUBJECTIVE: I am feeling good, I feel like I am moving around better than I was before. Home Situation: Type of Residence: Private Residence Lives with:: Daughter Steps to Enter: 2 Home Structure: One Story;Basement (dtr lives in basement) Primary Bedroom: First Floor Primary Bathroom: First Floor Bathroom : Tub/Shower Combo Equipment at Home: CPAP;Cane-Straight;Chair-Shower;Commode-Bedside;Hand Held Shower;Grab Bars;BloodPressure Cuff;Blood Glucose Monitor;Walker-2 Wheeled Prior Level of Functioning: Mobility: Ambulate-In Home ;With Assistive Device (uses cane or walker) Fallen Within 6 Mos: 1 Have Help at Home?: Yes, there is help at home now (dtr helps with getting in/out tub, helps with dressing) How often is assistance provided?: (as needed) Activity at Home: Active Oxygen at Home: No Pain Assessment: Pain Location #1 Pain Scale/Observation: Numeric (0-10) Pain Rating Score #1: 0 Patient/family stated goal: To walk in chavez OBJECTIVE: Cognition: Orientation Level: Oriented X4 Cognition: Follows Commands-Consistent;Judgement-appropriate;Safety awareness-appropriate Level of Consciousness-Adult: Alert Participation: Active Participation Precautions: N/A ROM and Strength: Strength - Right Lower Extremity: Within Functional Limits Strength - Left Lower Extremity: Within Functional Limits Bed Mobility: Supine to Sit: Complete [place] Transfers: Sit to Stand: Complete [place] Stand to Sit: Complete [place] Mobility: Distance Ambulated: 120 FEET Ambulation: Assistive Device: Walker-2 Wheeled Ambulation: Level of Assistance: Modified [place] ASSESSMENT: Patient seen for PT and OT co-treatment d/t requiring assist of 2 skilled therapists to maximize safety and participation in simultaneous functional mobility and ADLs. Patient in bed at time of arrival, agreeable to treat. Patient states she feels like she is at her baseline and actually moving around better than she usually does. Patient is independent with mobility. At this time, there is no need for skilled therapy, therefore, PT orders will be completed and patient will be discharged from therapy. If anything changes, please let therapy know. Call light and phone in reach. Encouraged patient to get up and walk around room as often as she can- if any dizziness or pain comes on, to sit back down and call for RN. Patient was agreeable. All lines, monitors, IV's, equipment in place and intact pre and post visit. Please refer to Filed Flowsheet PT Evaluation for further details. If this is the last PT visit, this note serves as the discharge summary. Neha, PT x [phone] US RIDER * Dat Ames, OT - 04/19/2023 9:25 AM CST Occupational Therapy Initial Evaluation Orders received. Chart reviewed for diagnosis and medical systems review. Nursing consented for OT. Explained purpose of OT and patient consented to participate in therapy. RECOMMENDATIONS/PLAN: No further need for acute care OT. Orders will be completed at this time. Discharge OT Discharge Recommendations: Patient at baseline per therapy evaluation and has no further skilledtherapy needs while in hospital AM-PAC Daily Activity Raw Score:: 23 ADMIT: 1. Chronic bilateral low back pain, unspecified whether sciatica present 2. Chronic midline low back pain without sciatica 3. Morbid obesity (CMS-HCC) PPE worn by staff: gloves;mask - surgical SUBJECTIVE: I feel like I'm doing better than when I came in Psychosocial: Patient Behaviors: Calm;Cooperative Pt's goal for therapy: Return Home Occupational Profile/PLOF: Type of Residence: Private Residence Lives with:: Daughter Home Structure: One Story;Basement (Pt does not need to access basement - daughter lives in basement and completes pt's laundry) Steps to Enter: 2 Handrails: None Ramp: No Primary Bedroom: First Floor Primary Bathroom: First Floor Bathroom : Tub/Shower Combo Equipment at Home: CPAP;Cane-Straight;Chair-Shower;Commode-Bedside;Walker-4 Wheeled;Hand Held Shower;Grab Bars;Blood Pressure Cuff;Blood Glucose Monitor Mobility: Ambulate-In Home ;Independent;With Assistive Device (uses cane vs walker) Fallen Within 6 Mos: 1 Have Help at Home?: Yes, there is help at home now How often is assistance provided?: Daughter assists with shower transfer, LB dressing, and all IADLs Level of Help Sufficient?: Yes Oxygen at Home: CPAP at night Activity at Home: Active Who manages medications?: Daughter Vision: Corrected with glasses Hearing Exceptions: No impairment Cognition: Orientation Level: Oriented X4 Level of Consciousness-Adult: Alert Cognition: Follows Commands-Consistent;Attention/concentration-normal for age;Processing-Appropriate Pain Assessment: Pain Location #1 Pain Scale/Observation: Numeric (0-10) Pain Rating Score #1: 0 Sedation Level #1: 1-Awake and alert RUE Assessment: AROM - Right Upper Extremity: Within Functional Limits Strength - Right Upper Extremity: Within Functional Limits Supervisor Joiners Strength: Supervisor Joiners Strength - Right Upper Extremity: WFL LUE Assessment: AROM - Left Upper Extremity: Within Functional Limits Strength - Left Upper Extremity: Within Functional Limits Supervisor Joiners Strength: Supervisor Joiners Strength - Left Upper Extremity: WFL: Basic ADL's: Based on observation and clinical judgement Feeding: Complete [place] Oral Facial Hygiene: Modified [place] Bathing: Minimal Assistance Upper Body Dressing: Modified [place] Lower Body Dressing: Modified [place] (slip on shoes) Toileting: Modified [place] Functional Mobility: Bed Mobility: Supine to Sit: Complete [place] Sit to Supine: Activity Does Not Occur (Pt sitting EOB at end of session) Transfers: Sit to Stand: Modified [place] Stand to Sit: Modified [place] Mobility: Distance Ambulated: (Functional mobility in room and chavez to simulate distances required to access bedroom, bathroom, and kitchen in home) Ambulation: Assistive Device: Walker-2 Wheeled Ambulation: Level of Assistance: Modified [place] Oxygen Therapy: $ O2 DEVICE: Room Air Vitals: Activity Tolerance: Tolerates ADLs without rest breaks ASSESSMENT: Pt in bed upon OT arrival, agreeable to therapy session. Pt participated in assessment of BUE strength/ROM, functional transfers, mobility, and self care tasks with pt requiring assist levels noted above. Pt able to complete functional mobility Elizabet with walker. Pt requires assist with LB dressing/bathing, but reports this is her baseline. Pt educated on AE - pt reports having AE at home, but prefers to have daughter assist. Pt at baseline in terms of self care and functional mobility. No further need for acute care OT at this time. Orders will be completed. Pt positioned for comfort on EOB at end of session with all immediate needs met as OT departs. Call light and phone in reach. All lines, monitors, IV's, equipment in place and intact pre and post visit. RN, notified of patient's performance/location end of session. Educated patient/family in fall prevention, role of OT, ADL assessment, functional mobility, transfers, safety, AE Refer to filed flow sheet for further details. If this is the last Occupational Therapy visit, this serves as the discharge summary. LE Daugherty, OTR/L [phone] US RIDER * Candy Orta RCP - 04/19/2023 2:11 AM CST CPAP order has just been modified as requested by policy and procedure & is now correct. Pt will continue to be monitored by RT & pt is still very well tolerating cpap via [facility] @12cm H2O pressure w/small size full face mask & w/2LPM oxygen bleed-in --only per protocol as pt was found on 2LPM Nasal Cannula @2300 last evening--(note-*pt does not use oxygen @home w/home cpap)-& pt was educated on non-invasive hospital policy & is compliant. RT will continue to monitor pt. Candy Orta RCP 04/19/2023 2:16 AM US RIDER * Candy Orta RCP - 04/19/2023 1:53 AM CST @0147--RT placed call to ascom #[id number] (internal med) for non-invasive cpap - modification to current order in place--states auto cpap 01/26. PLEASE NOTE--* Pt is on cpap of 12cm H2O pressure as she uses @home & has been here hospitalized before w/same setting as well. Pt stated to RT @2300 last evening that she has to be on 12cm H2O pressure cpap mode. Pt is on cpap @12cm H2O pressure via resmed machine w/small full face mask & etta very very well. RT is awaiting MD @#[id number] to call back when she is avail & RT has made RN & CSN aware of this as well. Order requires modification per policy/procedure. RT will continue to monitor pt. Candy Orta RCP 04/19/2023 1:56 AM US RIDER * Iman Lee, CHEVY/LD - 04/18/2023 1:36 PM CST CLINICAL NUTRITION BMI NOTE Height: 154.9 cm (5' 0.98 ) Weight: 123.8 kg (273 lb) Body mass index is 51.61 kg/m??. BMI Range: Morbidly Obese Class 3 Currently, patient is receiving a Current diet order: Consistent Carb Standard. Patient would benefit from outpatient nutrition counseling & follow up at discharge. To see an outpatient dietitian a provider will need to enter an order for MNT (Medical Nutrition Therapy) (Ambulatory [id number] in [facility]). MNT is a covered Medicare benefit for diabetes and renal disease. Other insurance coverage varies, patients should check with their insurance providers to verify coverage. Isha Spicer RD/SARA 04/18/2023 1:36 PM Ascom [id number] US RIDER * Al Pedro RN - 04/18/2023 10:20 AM CST Problem: Pain/Discomfort Goal: Patient exhibits reduced pain/discomfort as evidenced by pain scores Outcome: Progressing Problem: Pain/Discomfort Goal: Patient uses pharmacological and non-pharmacological pain management strategies. Outcome: Progressing Problem: Pain/Discomfort Goal: Patient verbalizes acceptable level of pain relief and ability to engage in desired activity. Outcome: Progressing US RIDER * Mariely Arellano RN - 04/18/2023 7:29 AM CST Care Coordination Initial Assessment Anticipated Discharge Date: 04/21/23 Transportation at Discharge: Family Anticipated level of care at discharge: Home Anticipated level of care provider: None Prior to admission level of care: Home Prior to admit provider: None Patient Goals: Go home Plans: No discharge needs identified at this time. Consult Case Management if discharge planning needs arise. 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 Patient will discharge home when medically stable. CM will continue to follow POC and provide additional assistance as needed. Lives with: Daughter Physical Limitations: None Requires Assistance With: Mobility;Housekeeping;Shopping;Meal Preparation;Hygiene Preferred Pharmacy: [id number] - [address] [place] [address] [address] [place] [address] READMISSION RISK SCORE is N/A at 4:33 PM 04/18/2023. Met with patient Family Support (name and phone): Extended Emergency Contact Information Primary Emergency Contact: Jimmie Marques [address]: [address] [place] [address] [place] [address] Relation: Spouse Secondary Emergency Contact: Yunior Velez Bildero Relation: Daughter Patient or mill representative requests care coordination reach out to family or caregiver listed above regarding discharge planning and at time of discharge? No Patient/Family provided with list of resources? No Preferred Provider / High Quality Network List given?: No Reason for provider choice: Pt. choice - Pt. choice Equipment at Home: CPAP;Cane-Straight;Chair-Shower;Commode-Bedside;Walker-4 Wheeled;Hand Held Shower;Grab Bars;Blood Pressure Cuff;Blood Glucose Monitor List DME pt. requires but does not have.: None Secondary Set Up Man Referral: No Will continue to follow. For any questions or needs please contact: Alumina Plant Supervisor Name/Phone number: Mariely Arellano RN, BSN. MSN, CM /[phone] US RIDER documented in this encounter H&P Notes * Darvin Parekh MD - 04/18/2023 8:37 AM CST Internal Medicine Resident History and Physical Admission Date: 04/18/2023 Room Number: 280 Code Status: Full Code Chief complaint: increasing back pain History of Present Illness: Karly Marques is a 67 year old female w/PMHx significant for type 2 diabetes mellitus, breast cancer, chronic back pain status post spinal stimulator placement complicated by infection of the battery requiring replacement, LUL, depression, peripheral neuropathy,PE on AC. Patient presented to the hospital with increasing lower back pain that started 2 days ago. Reports pain in the upper left extremity, numbness and tingling in the right upper extremity. On admission patient was afebrile, hemodynamically stable. Admission labs remarkable for elevated CRP at 2.98 and ESR at 82, CBC negative for leukocytosis. ED MD consulted Neurosurgery, who did not recommend any imaging. Patient did not respond to initial IV analgesics, was started on steroids and a dmitted for pain control. Patient was admitted to under IM service for further management. Review of Systems Constitutional: Negative for chills, fever and weight loss. Respiratory: Negative for cough and shortness of breath. Cardiovascular: Negative for chest pain, palpitations, orthopnea and leg swelling. Gastrointestinal: Negative for abdominal pain, blood in stool, constipation, diarrhea, melena, nausea and vomiting. Genitourinary: Negative for dysuria and frequency. Musculoskeletal: Positive for back pain. Negative for joint pain and neck pain. Skin: Negative for rash. Neurological: Denied saddle anesthesia, new bowel incontinence History: Past Medical History: Diagnosis Date ??? Breast cancer ([facility]) ??? Chest pain ??? DVT (deep venous thrombosis) ([facility]) ??? GERD (gastroesophageal reflux disease) ??? LUL (obstructive sleep apnea) w cpap ??? Other pulmonary embolism without acute cor pulmonale ([facility]) ??? rls ??? Type 2 diabetes mellitus without complications ([facility]) Past Surgical History: Procedure Laterality Date ??? [...] Cancer Sister ??? Heart Disease Brother Social History Occupational History ??? Not on file Tobacco Use ??? Smoking status: Former Packs/day: .5 Types: Cigarettes Quit date: 12/05/1977 Years since quittin.3 ??? Smokeless tobacco: Never Vaping Use ??? Vaping Use: Never used Substance and Sexual Activity ??? Alcohol use: No ??? Drug use: No ??? Sexual activity: Not on file Allergies to Medications and Reactions Allergies Allergen Reactions ??? Latex Rash ??? Ceftriaxone Anaphylaxis and Shortness of Breath R ??? Cephalosporins Anaphylaxis and Shortness of Breath ??? Lorazepam Other and Unknown Aggrevates restless leg syndrome ??? Trazodone Anaphylaxis and Other Shaky, restlessness, itching, throat swelling ??? Levofloxacin Urticaria and Skin Reactions ??? Macrobid [Nitrofurantoin] Rash ??? Lisinopril Swelling ??? Ketorolac Itching ??? Metoclopramide Other Twitching ??? Oxycodone Nausea and/or Vomiting ??? Pregabalin Other ??? Ceftriaxone Sodium In Dextrose Shortness of Breath ??? Piperacillin-Tazobactam In D5w Rash ??? Bactrim [Sulfamethoxazole W-Trimethoprim] Vomiting ??? Reslizumab Unknown ??? Skin Adhesives Skin Reactions Home Medications: No current facility-administered medications on file prior to encounter. Current Outpatient Medications on File Prior to Encounter Medication Sig Dispense Refill ??? amitriptyline (ELAVIL) 25 MG tablet at bedtime ??? exemestane (AROMASIN) 25 MG tablet Take 1 (one) tablet by mouth DAILY ??? HumaLOG KwikPen 100 UNIT/ML pen 22 (twenty two) Units 3 times daily before meals ??? hydroCHLOROthiazide (Microzide) 12.5 MG capsule Take 1 (one) capsule by mouth once daily ??? HYDROcodone-acetaminophen (Bellwood) 10-325 MG tablet Take 1 (one) tablet by mouth every 8 hours as needed for Pain Takes 3-4 times a day ??? hydrOXYzine HCl (Atarax) 25 MG tablet Take 1 (one) tablet by mouth 3 times daily as needed for Itching 30 tablet 0 ??? insulin pen needle (B-D ULTRAFINE III SHORT PEN) 31G X 8 MM needle 4 times daily 300 Each PRN ??? Lancets (ONETOUCH DELICA PLUS 33G EXTRA FINE LANCET) USE FOUR TIMES DAILY ??? Lantus SoloStar pen ADMINISTER 50 UNITS UNDER THE SKIN EVERY MORNING ??? methenamine hippurate (Hiprex) 1 GM tablet TAKE 1 TABLET BY MOUTH TWICE DAILY 60 tablet 3 ??? methocarbamol (Robaxin) 500 MG tablet Take 1 (one) tablet by mouth every 6 hours as needed for Muscle Spasms 60 tablet 0 ??? naloxone HCl (NARCAN) 4 MG/0.1ML nasal spray as needed ??? ONETOUCH ULTRA test strip 4 times [...] TAKE 1 TABLET BY MOUTH EVERY NIGHT OBJECTIVE Temp: [97.6 ??F (36.4 ??C)-98.3 ??F (36.8 ??C)] 98.1 ??F (36.7 ??C) Pulse: [79-88] 82 Resp: [16-20] 16 BP: (97-186)/(61-97) 125/62 Physical Exam Constitutional: General: She is not in acute distress. Appearance: Normal appearance. She is obese. She is not ill-appearing. HENT: Head: Normocephalic and atraumatic. Eyes: General: No scleral icterus. Cardiovascular: Rate and Rhythm: Normal rate and regular rhythm. Pulses: Normal pulses. Heart sounds: Normal heart sounds. No murmur heard. Pulmonary: Effort: Pulmonary effort is normal. No respiratory distress. Breath sounds: Normal breath sounds. No wheezing or rales. Abdominal: General: Abdomen is flat. Bowel sounds are normal. There is no distension. Palpations: Abdomen is soft. Tenderness: There is no abdominal tenderness. There is no guarding. Musculoskeletal: Right lower leg: Edema present. Left lower leg: Edema present. Comments: No pitting Patient has small healing scar above left buttock. Has adjacent pain in the lower back, radiating to her right lower extremity Skin: Coloration: Skin is not jaundiced. Findings: No bruising or lesion. Neurological: General: No focal deficit present. Mental Status: She is alert and oriented to person, place, and time. Cranial Nerves: No cranial nerve deficit. Motor: No weakness. Comments: She has normal sensation and strength in the upper and lower extremity Labs: Labs have been personally reviewed and are remarkable for the following: Recent Labs Component Name 04/17/23205803/24/23233703/22/23 1027 WBC 10.0 10.3 9.1 RBC 4.27 4.66 4.51 HGB 12.3 13.6 13.2 HCT 39.2 42.4 41.5 MCV 91.8 91.0 92.0 MCHC 31.4* 32.1 31.8 PLTCOUNT 288 279 290 Recent Labs Component Name 04/17/23205803/24/23233703/22/23 1028 03/20/23 0355 02/17/23 1838 02/06/23 1331 12/26/22 0132 SODIUM 139 - - - - 136 - POTASSIUM 4.5 4.2 4.2 4.0 - 3.7 3.9 MAGNESIUM - - 1.6 1.7 - - 1.5* CHLORIDE 103 - - - - 103 - CO2 24 26 27 24 - 25 26 BUN 18 17 14 9 - 13 12 CREATININE 1.07 0.99* 0.89 0.71 - 0.93 0.62 GLUCOSE 268* 352* 244* 212* - 258* 181* CALCIUM 9.6 9.4 9.8 8.8 - 9.5 8.9 ALT 16 17 - 14 - - - ALKPHOS 72 77 - 65 - - - AST 18 23 - 14 - - - TBIL 0.4 - - - - - - TPROT 8.4* - - - - - - EGFR 57* 63* 71* >90 - 68* >90 ALBUMIN 3.3* - - - - - - - = values in this interval not displayed. Microbiology: Microbiology Results (Displays last 21 days for this encounter ONLY) No results found for the last 504 hours. Imaging: Imaging has been personally reviewed and is summarized as below: No results found. Assessment/Clinical Reasoning/Plan Low back pain with radiation to the left lower extremity History of spinal stimulator - start oral steroids methylprednisolone 4 mg q.6 hours for 2 days, taper to Q 8 hours for 2 days, and q.12 hours for 2 days - continue pain regimen with home dose Bellwood 10 q.6 p.r.n. for severe pain, p.r.n. IV morphine q.6 hours if pain is not controlled with oral agents - neurosurgery consulted, recommended steroids as above, we will follow-up with nerve stimulator rep for settings - no signs of infection locally - PTOT Type 2 diabetes mellitus- Lantus 45 units, NovoLog 15 units t.i.d. plus MDSSI LUL on CPAP- continue CPAP Hypertension - continue home hydrochlorothiazide History of breast cancer- continue exemestane History of PE - continue home Xarelto Chronic urinary incontinence - continue home medications including MA DVT prophylaxis - already on AC PT, OT comments (if any) and disposition plan - PTOT ordered, may need acute rehab versus PT with home health, discharge home in 1-2 days if pain is well controlled Diet - DIET DIABETIC CONSIST CARB Risk Factors for Mortality Present at Time of Admission This patient does not have diagnoses most commonly associated with increased mortality risk Discussed the plan with IM attending. Darvin Parekh MD PGY-2 Internal Medicine [facility] US RIDER Associated attestation - Mary Velasquez MD - 04/18/2023 7:21 PM CIRCUS RIDER I have discussed the case with the resident. I confirm/revise the resident's documentation as notedbelow. Mary Velasquez MD Date of Service: 04/18/23 documented in this encounter Consult Notes * Melly Banks APRN-NETTA - 04/19/2023 1:57 PM CSTAssociated Order(s): IP CONSULT TO NEUROSURGERY Neurosurgery Spine Consult Note Name: Karly Montero Shelli : 1955 Date of Admission:04/18/2023 Date of Consult:04/19/2023 1:57 PM Time Seen: 1430 Chief Complaint (CC): acute on chronic back pain HISTORY OF PRESENT ILLNESS (HPI): Patient is a 67y/o female, w/ PMH of refractory axial low back pain s/p T8-9 laminectomy for placement of spinal stimulator (with Dr. Gregg in 02/13), DVT/PE (on Xarelto), GERD, DM and LUL, who presented to [place] ED on 04/17/23 w/ c/o acute on chronic back pain for 2 days. Pain radiates from left low back to left hip and down entire left leg. Denies any injury or trauma. Patient was given IV morphine with no relief in the ED and was thus admitted for pain control. Presently, patient reports improvement in pain after initiation of steroids but pain is still present. Notes pain is different than her typical refractory back pain. Associated with intermittent pins and needles to left leg. Able to ambulate with PT. She reports the stimulator rep (imagine) made adjustments to her device today. Past Medical History: Diagnosis Date ??? Breast cancer ([facility]) ??? Chest pain ??? DVT (deep venous thrombosis) ([facility]) ??? GERD (gastroesophageal reflux disease) ??? LUL (obstructive sleep apnea) w cpap ??? Other pulmonary embolism without acute cor pulmonale ([facility]) ??? rls ??? Type 2 diabetes mellitus without complications ([facility]) Past Surgical History: Procedure Laterality Date ??? [...] Other Shaky, restlessness, itching, throat swelling ??? Levofloxacin Urticaria and Skin Reactions ??? Macrobid [Nitrofurantoin] Rash ??? Lisinopril Swelling ??? Ketorolac Itching ??? Metoclopramide Other Twitching ??? Oxycodone Nausea and/or Vomiting ??? Pregabalin Other ??? Ceftriaxone Sodium In Dextrose Shortness of Breath ??? Piperacillin-Tazobactam In D5w Rash ??? Bactrim [...] (one) capsule by mouth once daily HYDROcodone-acetaminophen (Bellwood) 10-325 MG tablet Take 1 (one) tablet [...] ??? 0.9% NaCl injection 1-10 mL ??? amitriptyline (Elavil) tablet 25 mg ??? dextrose 10 % IV bolus Or ??? dextrose 10 % IV bolus Or ??? glucagon (Glucagen) injection 1 mg ??? exemestane (Aromasin) tablet 25 mg ??? glucose (Diabetic Use) (Dex4 Glucose) oral liquid Or ??? glucose (Diabetic Use) oral gel Or ??? glucose chew tablet 4 tablet ??? hydroCHLOROthiazide (Hydrodiuril) tablet 12.5 mg ??? HYDROcodone-acetaminophen (Bellwood) 10-325 MG tablet 1 tablet ??? hydrOXYzine HCl (Atarax) tablet 25 mg ??? insulin aspart (NovoLOG) pen 0-12 Units ??? insulin aspart (NovoLOG) pen 0-5 Units ??? insulin aspart (NovoLOG) pen 15 Units ??? insulin glargine (Lantus) pen 45 Units ??? lidocaine (Lidoderm) 5 % patch 1 patch ??? methylPREDNISolone (Medrol) tablet 4 mg ??? morphine injection 2 mg ??? NON FORMULARY REQUEST 1 g ??? ondansetron (disintegrating) (Zofran ODT) tablet 4 mg Or ??? ondansetron (Zofran) injection 4 mg ??? polyethylene glycol 3350 (Miralax) packet 17 g ??? rivaroxaban (Xarelto) tablet 20 mg ??? rOPINIRole (Requip) tablet 5 mg ??? senna (Senokot) tablet 8.6 mg ??? tolterodine ER 24hr (Detrol LA) capsule 4 mg Social History Tobacco Use ??? Smoking status: Former Packs/day: .5 Types: Cigarettes Quit date: 12/05/1977 Years since quittin.4 ??? Smokeless tobacco: Never Substance Use Topics ??? Alcohol use: No Family History Problem Relation Name Age of Onset ??? Heart Disease Mother ??? Diabetes Mother ??? Cancer Father ??? Hemochromatosis Father ??? Cancer Sister ??? Heart Disease Brother REVIEW OF SYSTEMS Constitutional: Negative Eyes: Negative Ears, nose, mouth, throat, and face: Negative Respiratory: Negative Cardiovascular: Negative Gastrointestinal: Negative Genitourinary:negative Hematologic/lymphatic: Negative Musculoskeletal:Negative Neurological: see HPI Behavioral/Psych: Negative PHYSICAL EXAM BP 132/67 (BP Cuff Size: A) Pulse 66 Temp 97.7 ??F (36.5 ??C) (Axillary) Resp 18 Ht 1.549 m(5' 0.98 ) Wt 126.4 kg (278 lb 10.6 oz) SpO2 96% General: NAD Cardiovascular: warm, well profused Respiratory: non-labored breathing Abdominal: Soft, non tender, non distended Integument: thoracic wound completely healed, left lumbar wound almost completely healed with no evidence of erythema or drainage Vascular: capillary refill <3 seconds Neuro: Mental status: Alert, attentive, and oriented. Speech is clear and fluent. Cranial nerves: Grossly intact Motor: Muscle bulk and tone are normal. Hip Flexor Quad Hamstring Tib Ant Gastroc EHL Right 5 5 5 5 5 5 Left 5 5 5 5 5 5 Reflexes: Patellar Right 1+ Left 1+ Sensory: Light touch intact to BLE Coordination: There are no abnormal or extraneous movements. Gait/Stance: deferred LABORATORY Recent Labs Component Name 04/19/23 0252 WBC 13.5* HGB 11.5* HCT 36.7 PLTCOUNT 300 Recent Labs Component Name 04/19/23 0252 04/17/239 03/24/23 2338 NA - - 135* POTASSIUM 4.2 - 4.2 CHLORIDE 100 - - CO2 26 - 26 BUN 25 - 17 CREATININE 0.86 - 0.99* GLUCOSE 231* - 352* - = values in this interval not displayed. Recent Labs Component Name 02/21/23 1830 INR 1.0 RADIOLOGY No new imaging Assessment: 67 year old female with chronic axial low back pain s/p T8-9 laminectomy for placement of spinal stimulator (with Dr. Gregg in 02/13) who presented to [place] ED on 04/17/23 w/ c/o acute on chronic low back pain which radiates down her left leg for 2 days. Her pain was refractory to IV morphineso she was admitted for pain control. During her admission, she was started on steroids which patient reports has provided some relief, although pain remains present. Neurologically, she is at baseline and full strength. Her incisions are completely healed without evidence of infection. The stimulator rep (imagine) made adjustments to her device today. Given reassuring exam, recommend conservativemanagement with no further imaging. Plan: - No acute surgical intervention is warranted - Agree with steroids and PT - Recommend Oxy q4-6h prn + scheduled Robaxin + scheduled Tylenol + Lidoderm patches - Attempt to wean IV morphine - Continue to monitor neuro exam - Activity: As tolerated - Overall care per primary team To be discussed with attending, Dr. Marysol Banks, CARROTING MACHINE OPERATOR-COUNTER SUPERVISOR 04/19/2023 1:57 PM Ascom Pager US RIDER documented in this encounter ED Notes * Jabari Vega RN - 04/18/2023 8:28 AM CST Report given to NURIS Melendez . US RIDER * Bubba Brice RN - 04/18/2023 3:30 AM CST This patient came in to the ED, after talking to her neurologist, for pain control. She recently had a nerve stimulator inserted, but her pain has been uncontrollable over the past few days. US RIDER * Leo Bourne RN - 04/18/2023 2:00 AM CST Bed: 37 Expected date: Expected time: Means of arrival: Comments: Shelli US RIDER * Lalit Matthew DO - 04/18/2023 12:42 AM CST ED Events Date/Time Event User Comments 04/17/232026 First Provider Evaluation LALIT MATTHEW -- Karly Montero Shelli [id number] [facility] EMERGENCY DEPARTMENT History Chief Complaint Patient presents with ??? Pain Back Pt c/o severe back pain x 48 hours. Pt states she has a stimulator for chronic back pain after surgery. Pt also c/o numbness and tingling on her right hand and feels like pins and needles on her leftarm. Pt also c/o bilateral leg pain. Pt also c/o nausea x 8 weeks with a 20lb weight loss. 67-year-old female presents to ED from home with back pain. Patient states she has been having increased lower pain for the past 2 days. Patient states she feels like her back pain is affecting her whole left side because she is having pain into her shoulder, arm, hip, and leg. Patient states she has a history of chronic back pain, follows with Neurosurgery, Dr. Maxi Gregg. States she had a nerve stimulator replaced 8 weeks ago and has been having pain off and on since then. Patient states since then she has had some nausea causing her to have a 20 lb weight loss. Patient also reports right hand numbness. Patient denies any neck pain, no upper back pain. Patient denies any fever chills, no chest pain, no shortness of breath, no vomiting or diarrhea. Patient reports chronic urinary incontinence, no fecal incontinence, no saddle anesthesia Past Medical History: Diagnosis Date ??? Breast cancer ([facility]) ??? Chest pain ??? DVT (deep venous thrombosis) ([facility]) ??? GERD (gastroesophageal reflux disease) ??? LUL (obstructive sleep apnea) w cpap ??? Other pulmonary embolism without acute cor pulmonale ([facility]) ??? rls ??? Type 2 diabetes mellitus without complications ([facility]) Past Surgical History: Procedure Laterality Date ??? [...] Cancer Sister ??? Heart Disease Brother Social History Socioeconomic History ??? Marital status: Spouse name: Not on file ??? Number of children: Not on file ??? Years of education: Not on file ??? Highest education level: Not on file Occupational History ??? Not on file Tobacco Use ??? Smoking status: Former Packs/day: .5 Types: Cigarettes Quit date: 12/05/1977 Years since quittin.3 ??? Smokeless tobacco: Never Vaping Use ??? Vaping Use: Never used Substance and Sexual Activity ??? Alcohol use: No ??? Drug use: No ??? Sexual activity: Not on file Other Topics Concern ??? Not on file Social History Narrative ??? Not on file Social Determinants of Health Financial Resource Strain: Low Risk (02/22/2023) Overall Financial Resource Strain (CARDIA) ??? Difficulty of Paying Living Expenses: Not hard at all Food Insecurity: No Food Insecurity (02/22/2023) Hunger Vital Sign ??? Worried About Running Out of Food in the Last Year: Never true ??? Ran Out of Food in the Last Year: Never true Transportation Needs: No Transportation Needs (02/22/2023) PRAPARE - Transportation ??? Lack of Transportation (Medical): No ??? Lack of Transportation (Non-Medical): No Stress: No Stress Concern Present (02/22/2023) [employer] - Occupational Stress Questionnaire ??? Feeling of Stress : Not at all Housing Stability: Low Risk (02/22/2023) Housing Stability Vital Sign ??? Unable to Pay for Housing in the Last Year: No ??? Number of Places Lived in the Last Year: 1 ??? Unstable Housing in the Last Year: No Review of Systems Review of Systems Constitutional: Negative for chills and fever. HENT: Negative for congestion and sore throat. Respiratory: Negative for cough and shortness of breath. Cardiovascular: Positive for leg swelling. Negative for chest pain. Gastrointestinal: Negative for abdominal pain, diarrhea, nausea and vomiting. Genitourinary: Negative for dysuria and hematuria. Chronic urinary incontinence, no fecal incontinence Musculoskeletal: Positive for back pain. Neurological: Positive for sensory change and headaches. Negative for dizziness. No saddle anesthesia Physical Exam BP 151/82 Pulse 80 Temp 97.6 ??F (36.4 ??C) (Oral) Resp 20 Ht 1.549 m (5' 1 ) Wt 123.8 kg(273 lb) SpO2 98% BMI 51.58 kg/m?? Physical Exam Vitals and nursing note reviewed. Constitutional: Appearance: Normal appearance. She is obese. HENT: Head: Normocephalic and atraumatic. Mouth/Throat: Mouth: Mucous membranes are moist. Cardiovascular: Rate and Rhythm: Normal rate and regular rhythm. Heart sounds: No murmur heard. Pulmonary: Effort: Pulmonary effort is normal. Breath sounds: Normal breath sounds. No wheezing or rales. Abdominal: Palpations: Abdomen is soft. Tenderness: There is no abdominal tenderness. There is no guarding or rebound. Musculoskeletal: Cervical back: No tenderness or bony tenderness. Thoracic back: No tenderness or bony tenderness. Lumbar back: Bony tenderness present. Comments: No overlying erythema warmth Skin: General: Skin is warm and dry. Neurological: Mental Status: She is alert and oriented to person, place, and time. Sensory: Sensation is intact. Motor: Motor function is intact. Psychiatric: Mood and Affect: Mood normal. Behavior: Behavior normal. Medications Current Outpatient Medications Medication Sig Dispense Refill ??? amitriptyline (ELAVIL) 25 MG tablet at bedtime (Patient not taking: Reported on 03/27/2023) ??? exemestane (AROMASIN) 25 MG tablet Take 1 (one) tablet by mouth DAILY ??? HumaLOG KwikPen 100 UNIT/ML pen 22 (twenty two) Units 3 times daily before meals ??? hydroCHLOROthiazide (Microzide) 12.5 MG capsule Take 1 (one) capsule by mouth once daily ??? HYDROcodone-acetaminophen ([place]wood) 7.5-325 MG tablet Take 1 (one) tablet by mouth every 6 hours as needed for Pain ??? hydrOXYzine HCl (Atarax) 25 MG tablet Take 1 (one) tablet by mouth 3 times daily as needed for Itching 30 tablet 0 ??? insulin pen needle (B-D ULTRAFINE III SHORT PEN) 31G X 8 MM needle 4 times daily 300 Each PRN ??? Lancets (ONETOUCH DELICA PLUS 33G EXTRA FINE LANCET) USE FOUR TIMES DAILY ??? Lantus SoloStar pen ADMINISTER 50 UNITS UNDER THE SKIN EVERY MORNING ??? methenamine hippurate (Hiprex) 1 GM tablet TAKE 1 TABLET BY MOUTH TWICE DAILY 60 tablet 3 ??? methocarbamol (Robaxin) 500 MG tablet Take 1 (one) tablet by mouth every 6 hours as needed for Muscle Spasms 60 tablet 0 ??? naloxone HCl (NARCAN) 4 MG/0.1ML nasal spray as needed ??? ONETOUCH ULTRA test strip 4 times [...] TAKE 1 TABLET BY MOUTH EVERY NIGHT Procedures Procedures Lab/SPO2 Interpretation Hospital Encounter on 04/17/23 CBC W AUTO DIFFERENTIAL Result Value Ref Range WBC 10.0 4.0 - 10.7 x10E9/L RBC Count 4.27 3.90 - 5.20 x10E12/L Hemoglobin 12.3 11.9 - 15.8 g/dL Hematocrit 39.2 34.8 - 46.1 % MCV 91.8 80.0 - 98.0 fL MCH 28.8 26.7 - 33.6 pg MCHC 31.4 (L) 31.7 - 36.3 g/dL RDW-CV 13.6 11.3 - 14.8 % Platelet Count 288 150 - 420 x10E9/L MPV 9.7 7.8 - 11.4 fL Neutrophil % 56.0 41.0 - 74.0 % Lymphocyte % 31.1 17.0 - 47.0 % Monocyte % 8.8 3.0 - 11.0 % Eosinophil % 3.2 0.0 - 7.0 % Basophil % 0.4 0.0 - 1.6 % Immature Granulocytes % 0.5 0.0 - 1.0 % Neutrophil Absolute 5.59 1.60 - 7.50 x10E9/L Lymphocyte Absolute 3.10 1.00 - 4.40 x10E9/L Monocyte Absolute 0.88 0.15 - 1.00 x10E9/L Eosinophil Absolute 0.32 0.00 - 0.60 x10E9/L Basophil Absolute 0.04 0.00 - 0.13 x10E9/L COMPREHENSIVE METABOLIC PANEL Result Value Ref Range Glucose 268 (H) 70 - 105 mg/dL Sodium 139 136 - 145 mmol/L Potassium 4.5 3.5 - 5.1 mmol/L Chloride 103 98 - 107 mmol/L CO2 24 22 - 29 mmol/L Calcium 9.6 8.4 - 10.4 mg/dL Anion Gap 12 6 - 16 mmol/L BUN 18 7 - 26 mg/dL Creatinine 1.07 0.57 - 1.11 mg/dL Alkaline Phosphatase 72 40 - 150 U/L ALT 16 0 - 55 U/L AST 18 5 - 34 U/L Protein Total 8.4 (H) 6.4 - 8.3 gm/dL Albumin 3.3 (L) 3.4 - 5.0 gm/dL Bilirubin Total 0.4 0.2 - 1.2 mg/dL eGFR by CKD-EPI 57 (L) >=90 mL/min/1.73 m2 C-REACTIVE PROTEIN Result Value Ref Range C-Reactive Protein 2.98 (H) <=0.50 mg/dL ERYTHROCYTE SEDIMENTATION RATE Result Value Ref Range Erythrocyte Sedimentation Rate Automated 82 (H) 0 - 30 MM/HR No orders to display Progress Notes ED Course Clinical Impressions as of 04/18/23 0221 Chronic midline low back pain without sciatica Morbid obesity ([facility]) MDM MDM: Patient presents to the emergency department for evaluation of acute on chronic lower back pain Differential diagnosis include but not limited to acute on chronic back pain, back strain, infection Complication comorbidities include but are not limited to chronic back pain, morbid obesity, hypertension, diabetes, CVA, DVT External notes/medical records reviewed including previous blood work, previous neurosurgery follow-up note Results: Lab results reviewed and interpreted by me and significant results include: Stable CMP normal WBC count 10.0, CRP 2.9, sed rate 82 Lab results are highlighted in the diagnoses section of the EPIC record. ED Course: I discussed with the patient's neurosurgeon, Dr. Gregg. Agreeable with pain control and blood work. States patient may be admitted for pain control if needed otherwise may follow-up as an outpatientwith him. Does not recommend any spine imaging at this time. Patient will be given a dose of morphine and Zofran and will reassess. After IV pain medication the patient states her back pain has not improved at all. Patient states she still is unable to ambulate. Patient is requesting admission. Additional morphine dose will be given as well as Solu-Medrol. Will plan to admit the patient for neurosurgery evaluation and continuedpain control. Primary Impression: Acute on chronic lower back pain Secondary Impression: Morbid obesity Disposition Plan - Admission Patient will be hospitalized, patient would benefit from continued evaluation, management and treatment in the hospital. Discussed with Dr. Barrera, hospitalist, accepted admission. Plan was reviewedwith the patient and any initial questions were answered as best as able. At the time of disposition patient was appropriate for admission to observation status Portions of the record have been created with voice recognition software. Occasional wrong-word or '[id number]' substitutions may have occurred due to the inherent limitations of voice recognition software. Orders Placed This Encounter ??? CBC W AUTO DIFFERENTIAL ??? COMPREHENSIVE METABOLIC PANEL ??? C-REACTIVE PROTEIN ??? ERYTHROCYTE SEDIMENTATION RATE ??? AND Linked Order Group ??? 0.9% NaCl injection 3 mL ??? 0.9% NaCl injection 1-10 mL ??? morphine injection 4 mg ??? ondansetron (Zofran) injection 4 mg [facility]ER * Patricia Scott RN - 04/17/2023 8:20 PM CST Pt c/o severe back pain x 48 hours. Pt states she has a stimulator for chronic back pain after surgery. Pt also c/o numbness and tingling on her right hand and feels like pins and needles on her leftarm. Pt also c/o bilateral leg pain. Pt also c/o nausea x 8 weeks with a 20lb weight loss. [facility] documented in this encounter Plan of Treatment Scheduled Orders Name Type Priority Associated Diagnoses Order Schedule REASSESSMENT PARAMETERS Respiratory Care Routine ONCE for 1 Occurrences starting 04/18/2023 until 04/18/2023 documented as of this encounter Procedures Procedure Name Priority Date/Time Associated Diagnosis Comments GLUCOSE - POINT OF CARE Routine 04/20/2023 11:47 AM [facility] GLUCOSE - POINT OF CARE Routine 04/20/2023 7:47 AM [facility] GLUCOSE - POINT OF CARE Routine 04/19/2023 8:26 PM [facility] GLUCOSE - POINT OF CARE Routine 04/19/2023 3:53 PM [facility] URINE MICROSCOPIC ONLY REFLEX TO CULTURE Routine 04/19/2023 3:13 PM [facility] URINALYSIS REFLEX MICROSCOPIC REFLEX CULTURE Routine 04/19/2023 3:13 PM [facility] CULTURE URINE Routine 04/19/2023 3:13 PM [facility] GLUCOSE - POINT OF CARE Routine 04/19/2023 11:35 AM [facility] GLUCOSE - POINT OF CARE Routine 04/19/2023 7:57 AM [facility] CBC W/O DIFFERENTIAL Routine 04/19/2023 2:52 AM [facility] Chronic bilateral low back pain, unspecified whether sciatica present COMPREHENSIVE METABOLIC PANEL Routine 04/19/2023 2:52 AM [facility] Chronic bilateral low back pain, unspecified whether sciatica present GLUCOSE - POINT OF CARE Routine 04/18/2023 9:21 PM [facility] GLUCOSE - POINT OF CARE Routine 04/18/2023 3:54 PM [facility] GLUCOSE - POINT OF CARE Routine 04/18/2023 11:52 AM [facility] OT EVAL AND TREAT Routine 04/18/2023 11: 12 AM [facility] PT EVAL AND TREAT Routine 04/18/2023 11: 12 AM [facility] C-REACTIVE PROTEIN STAT 04/17/2023 8: 59 PM [facility] ERYTHROCYTE SEDIMENTATION RATE STAT 04/17/2023 8:59 PM [facility] CBC W AUTO DIFFERENTIAL STAT 04/17/2023 8:59 PM [facility] COMPREHENSIVE METABOLIC PANEL STAT 04/17/2023 8:59 PM [facility] documented in this encounter Results * (ABNORMAL) GLUCOSE - POINT OF CARE (04/20/2023 11:47 AM [facility]) Glucose WB/POC 269(H) 70 - 106 mg/dL 04/20/2023 11:52 AM [facility] Specimen Type Cap Fingerstick 2022 11:52 AM [facility] Blood BLOOD SPECIMEN / Unknown 04/20/2023 11:47 AM [facility] 04/20/2023 11:52 AM [facility] Mary Velasquez MD LAB - POINT OF CARE ORDERABLES [facility] [address] [place] [phone] * (ABNORMAL) GLUCOSE - POINT OF CARE (04/20/2023 7:47 AM [facility]) Glucose WB/POC 162(H) 70 - 106 mg/dL 04/20/2023 7:53 AM [facility] Specimen Type Cap Fingerstick 2022 7:53 AM [facility] Blood BLOOD SPECIMEN / Unknown 04/20/2023 7:47 AM [facility] 04/20/2023 7:53 AM [facility] Mary Velasquez MD LAB - POINT OF CARE ORDERABLES [facility] [address] [place] [phone] * (ABNORMAL) GLUCOSE - POINT OF CARE (04/19/2023 8:26 PM [facility]) Glucose WB/POC 161(H) 70 - 106 mg/dL 04/19/2023 8:35 PM [facility] Specimen Type Cap Fingerstick 2022 8:35 PM [facility] Blood BLOOD SPECIMEN / Unknown 04/19/2023 8:26 PM [facility] 04/19/2023 8:35 PM [facility] Mary Velasquez MD LAB - POINT OF CARE ORDERABLES [facility] [address] [place] [phone] * (ABNORMAL) GLUCOSE - POINT OF CARE (04/19/2023 3:53 PM [facility]) Glucose WB/POC 313(H) 70 - 106 mg/dL 04/19/2023 4:03 PM [facility] Specimen Type Cap Fingerstick 2022 4:03 PM [facility] Blood BLOOD SPECIMEN / Unknown 04/19/2023 3:53 PM [facility] 04/19/2023 4:03 PM [facility] Mary Velasquez MD LAB - POINT OF CARE ORDERABLES Performing Organization Address City/[facility]/ZIP Co de Phone Number [facility] [address] [place] [phone] * (ABNORMAL) CULTURE URINE (04/19/2023 3:13 PM [facility]) Culture Urine 50,000-100,000 CFU/mL Escherichia coli(A) TERRANCE 04/21/2023 4:59 AM [facility] Culture Urine 10,000-50,000 CFU/mL urogenital evelio TERRANCE 04/21/2023 4:59 AM [facility] Urine URINE SPECIMEN OBTAINED BY CLEAN CATCH PROCEDURE / Unknown Collection / Unknown 04/19/2023 3:13 PM [facility] 04/19/2023 3:26 PM [facility] Narrative [facility] - 04/21/2023 4:59 AM [facility] Organism Antibiotic Method Susceptibility Escherichia coli Amikacin [...] UTIs, use alternative cefazolin susceptibility result above. Mary Velasquez MD LAB - MICROBIOLOGY O RDERABLES [facility] [address] [place] [address], [facility] [phone] * (ABNORMAL) URINE MICROSCOPIC ONLY REFLEX TO CULTURE (04/19/2023 3:13 PM [facility]) Reflex Status Culture to follow 04/19/2023 3:33 PM [facility] RBC UA 0-2 0 - 5 # /hpf 04/19/2023 3:33 PM [facility] WBC UA 6-10(A) 0 - 5 # /hpf 04/19/2023 3:33 PM [facility] Bacteria UA Trace(A) None Seen 04/19/2023 3:33 PM [facility] Squamous Epithelial Cells 0-2 0 - 5 /hpf 04/19/2023 3:33 PM [facility] Mucus UA 1+ /LPF 04/19/2023 3:33 PM [facility] Hyaline Casts 0-2 0 - 2 /LPF 04/19/2023 3:33 PM [facility] Urine URINE SPECIMEN OBTAINED BY CLEAN CATCH PROCEDURE / Unknown Collection / Unknown 04/19/2023 3:13 PM [facility] 04/19/2023 3:26 PM [facility] - 04/19/2023 3:33 PM [facility] Mary Velasquez MD LAB - URINALYSIS ORD ERABLES [facility] [address] [place] [address] * (ABNORMAL) URINALYSIS REFLEX MICROSCOPIC REFLEX CULTURE (04/19/2023 3:13 PM [facility]) Color UA Straw Straw, Yellow 04/19/2023 3:32 PM [facility] Clarity UA Clear Clear 04/19/2023 3:32 PM [facility] Glucose UA 1+(A) Negative 04/19/2023 3:32 PM [facility] Bilirubin UA Negative Negative 04/19/2023 3:32 PM [facility] Ketone UA Negative Negative 04/19/2023 3:32 PM [facility] Specific [place] UA 1.012 1.005 - 1.030 04/19/2023 3:32 PM [facility] Blood UA 1+(A) Negative 04/19/2023 3:32 PM [facility] pH UA 5.0 5.0 - 8.0 pH 04/19/2023 3:32 PM [facility] Protein UA Negative Negative 04/19/2023 3:32 PM [facility] Urobilinogen UA Negative Negative mg/dL 04/19/2023 3:32 PM [facility] Nitrite UA Negative Negative 04/19/2023 3:32 PM [facility] Leukocyte UA Trace(A) Negative 04/19/2023 3:32 PM [facility] Urine Microscopy Urine microscopy to follow 04/19/2023 3:32 PM [facility] Reflex Status Culture to follow 04/19/2023 3:32 PM [facility] Urine URINE SPECIMEN OBTAINED BY CLEAN CATCH PROCEDURE / Unknown Collection / Unknown 04/19/2023 3:13 PM [facility] 04/19/2023 3:26 PM [facility] Narrative [facility] - 04/19/2023 3:32 PM [facility] Mary Velasquez MD LAB - URINALYSIS ORD ERABLES Performing Organization Address City/[facility] Co de Phone Number [facility] [address] [place] [phone] * (ABNORMAL) GLUCOSE - POINT OF CARE (04/19/2023 11:35 AM [facility]) Glucose WB/POC 248(H) 70 - 106 mg/dL 04/19/2023 11:45 AM [facility] Specimen Type Cap Fingerstick 2022 11:45 AM [facility] Blood BLOOD SPECIMEN / Unknown 04/19/2023 11:35 AM [facility] 04/19/2023 11:45 AM [facility] Mary Velasquez MD LAB - POINT OF CARE ORDERABLES Performing Organization Address City/[facility]/ZIP Co de Phone Number [facility] [address] [place] [phone] * (ABNORMAL) GLUCOSE - POINT OF CARE (04/19/2023 7:57 AM [facility]) Glucose WB/POC 201(H) 70 - 106 mg/dL 04/19/2023 8:07 AM [facility] Specimen Type Cap Fingerstick 2022 8:07 AM [facility] Blood BLOOD SPECIMEN / Unknown 04/19/2023 7:57 AM [facility]ER 04/19/2023 8:07 AM [facility] Mary Velasquez MD LAB - POINT OF CARE ORDERABLES [facility] [address] [place], [place] [phone] * (ABNORMAL) CBC W/O DIFFERENTIAL (04/19/2023 2:52 AM [facility]) WBC 13.5(H) 4.0 - 10.7 x10E9/L 04/19/2023 4:03 AM [facility] RBC Count 4.01 3.90 - 5.20 x10E12/L 04/19/2023 4:03 AM [facility] Hemoglobin 11.5(L) 11.9 - 15.8 g/dL 04/19/2023 4:03 AM [facility] Hematocrit 36.7 34.8 - 46.1 % 04/19/2023 4:03 AM [facility] MCV 91.5 80.0 - 98.0 fL 04/19/2023 4:03 AM [facility] MCH 28.7 26.7 - 33.6 pg 04/19/2023 4:03 AM [facility] MCHC 31.3(L) 31.7 - 36.3 g/dL 04/19/2023 4:03 AM [facility] RDW-CV 13.4 11.3 - 14.8 % 04/19/2023 4:03 AM [facility] Platelet Count 300 150 - 420 x10E9/L 04/19/2023 4:03 AM [facility] MPV 10.4 7.8 - 11.4 fL 04/19/2023 4:03 AM [facility] Blood BLOOD SPECIMEN / Unknown Lab Venipuncture / Unknown 04/19/2023 2:52 AM [facility] 04/19/2023 3:39 AM [facility] Mary Velasquez MD LAB - HEMATOLOGY ORD ERABLES [facility] [address] [place], [place] [phone] * (ABNORMAL) COMPREHENSIVE METABOLIC PANEL (04/19/2023 2:52 AM [facility]) Glucose 231(H) 70 - 105 mg/dL 04/19/2023 4:21 AM [facility] Sodium 136 136 - 145 mmol/L 04/19/2023 4:21 AM [facility] Potassium 4.2 3.5 - 5.1 mmol/L 04/19/2023 4:21 AM [facility] Chloride 100 98 - 107 mmol/L 04/19/2023 4:21 AM [facility] CO2 26 22 - 29 mmol/L 04/19/2023 4:21 AM [facility] Calcium 9.2 8.4 - 10.4 mg/dL 04/19/2023 4:21 AM [facility] Anion Gap 10 6 - 16 mmol/L 04/19/2023 4:21 AM [facility] BUN 25 7 - 26 mg/dL 04/19/2023 4:21 AM [facility] Creatinine 0.86 0.57 - 1.11 mg/dL 04/19/2023 4:21 AM [facility] Alkaline Phosphatase 63 40 - 150 U/L 04/19/2023 4:21 AM [facility] ALT 13 0 - 55 U/L 04/19/2023 4:21 AM [facility] AST 12 5 - 34 U/L 04/19/2023 4:21 AM [facility] Protein Total 7.5 6.4 - 8.3 gm/dL 04/19/2023 4:21 AM [facility] Albumin 3.0(L) 3.4 - 5.0 gm/dL 04/19/2023 4:21 AM [facility] Bilirubin Total 0.6 0.2 - 1.2 mg/dL 04/19/2023 4:21 AM [facility] eGFR by CKD-EPI 74(L) >=90 mL/min/1.7 3 m2 04/19/2023 4:21 AM [facility] Blood BLOOD SPECIMEN / Unknown Lab Venipuncture / Unknown 04/19/2023 2:52 AM [facility] 04/19/2023 3:39 AM [facility] Mary Velasquez MD LAB - CHEMISTRY ORDNicholas SPEARS [facility] [address] [place] [phone] * (ABNORMAL) GLUCOSE - POINT OF CARE (04/18/2023 9:21 PM [facility]) Glucose WB/POC 276(H) 70 - 106 mg/dL 04/18/2023 9:33 PM [facility] Specimen Type Cap Fingerstick 2022 9:33 PM [facility] Blood BLOOD SPECIMEN / Unknown 04/18/2023 9:21 PM [facility] 04/18/2023 9:33 PM [facility] Mary Velasquez MD LAB - POINT OF CARE ORDERABLES Performing Organization Address [facility] Co de Phone Number [facility] [address] [place] [phone] * (ABNORMAL) GLUCOSE - POINT OF CARE (04/18/2023 3:54 PM [facility]) Glucose WB/POC 299(H) 70 - 106 mg/dL 04/18/2023 4:00 PM [facility] Specimen Type Cap Fingerstick 2022 4:00 PM [facility] Blood BLOOD SPECIMEN / Unknown 04/18/2023 3:54 PM [facility]ER 04/18/2023 4:00 PM [facility] Mary Velasquez MD LAB - POINT OF CARE ORDERABLES Performing Organization Address [facility]/ZIP Co de Phone Number [facility] [address] [place] [phone] * (ABNORMAL) GLUCOSE - POINT OF CARE (04/18/2023 11:52 AM [facility]) Glucose WB/POC 371(H) 70 - 106 mg/dL 04/18/2023 12:00 PM [facility] Specimen Type Arterial 04/18/2023 12:00 PM [facility] Blood BLOOD SPECIMEN / Unknown 04/18/2023 11:52 AM [facility] 04/18/2023 12:00 PM [facility] Mary Velasquez MD LAB - POINT OF CARE ORDERABLES Performing Organization Address [facility]/ZIP Co de Phone Number [facility] [address] [place] [phone] * (ABNORMAL) ERYTHROCYTE SEDIMENTATION RATE (04/17/2023 8:59 PM [facility]) Erythrocyte Sedimentation Rate Automated 82(H) 0 - 30 MM/HR 04/17/2023 9:23 PM [facility] Blood BLOOD SPECIMEN / Unknown Venipuncture / Unknown 04/17/2023 8:59 PM [facility] 04/17/2023 8:59 PM [facility] Lalit Matthew DO LAB - HEMATOLOGY ORD ERABLES Performing Organization Address [facility] Co de Phone Number [facility] [address] [place] [phone] * (ABNORMAL) C-REACTIVE PROTEIN (04/17/2023 8:59 PM [facility]) C-Reactive Protein 2.98(H) <=0.50 mg/dL 04/17/2023 9:15 PM [facility] Blood BLOOD SPECIMEN / Unknown Venipuncture / Unknown 04/17/2023 8:59 PM [facility]ER 04/17/2023 8:59 PM [facility] Lalit Matthew DO LAB - CHEMISTRY ORDE RABLES Performing Organization Address [facility]/ZIP Co de Phone Number [facility] [address] [place] [phone] * (ABNORMAL) COMPREHENSIVE METABOLIC PANEL (04/17/2023 8:59 PM [facility]) Glucose 268(H) 70 - 105 mg/dL 04/17/2023 9:15 PM [facility] Sodium 139 136 - 145 mmol/L 04/17/2023 9:15 PM [facility] Potassium 4.5 3.5 - 5.1 mmol/L 04/17/2023 9:15 PM [facility] Chloride 103 98 - 107 mmol/L 04/17/2023 9:15 PM [facility] CO2 24 22 - 29 mmol/L 04/17/2023 9:15 PM [facility] Calcium 9.6 8.4 - 10.4 mg/dL 04/17/2023 9:15 PM [facility] Anion Gap 12 6 - 16 mmol/L 04/17/2023 9:15 PM [facility] BUN 18 7 - 26 mg/dL 04/17/2023 9:15 PM [facility] Creatinine 1.07 0.57 - 1.11 mg/dL 04/17/2023 9:15 PM [facility] Alkaline Phosphatase 72 40 - 150 U/L 04/17/2023 9:15 PM [facility] ALT 16 0 - 55 U/L 04/17/2023 9:15 PM [facility] AST 18 5 - 34 U/L 04/17/2023 9:15 PM [facility] Protein Total 8.4(H) 6.4 - 8.3 gm/dL 04/17/2023 9:15 PM [facility] Albumin 3.3(L) 3.4 - 5.0 gm/dL 04/17/2023 9:15 PM [facility] Bilirubin Total 0.4 0.2 - 1.2 mg/dL 04/17/2023 9:15 PM [facility] eGFR by CKD-EPI 57(L) >=90 mL/min/1.7 3 m2 04/17/2023 9:15 PM [facility] Blood BLOOD SPECIMEN / Unknown Venipuncture / Unknown 04/17/2023 8:59 PM [facility] 04/17/2023 8:59 PM [facility] Lalit Matthew DO LAB - CHEMISTRY ANGEL SPEARS [facility] [id number] [place] [address] * (ABNORMAL) CBC W AUTO DIFFERENTIAL (04/17/2023 8:59 PM [facility]) [facility] Signature WBC 10.0 4.0 - 10.7 x10E9/L 04/17/2023 9:03 PM [facility] RBC Count 4.27 3.90 - 5.20 x10E12/L 04/17/2023 9:03 PM [facility] Hemoglobin 12.3 11.9 - 15.8 g/dL 04/17/2023 9:03 PM [facility] Hematocrit 39.2 34.8 - 46.1 % 04/17/2023 9:03 PM [facility] MCV 91.8 80.0 - 98.0 fL 04/17/2023 9:03 PM [facility] MCH 28.8 26.7 - 33.6 pg 04/17/2023 9:03 PM [facility] MCHC 31.4(L) 31.7 - 36.3 g/dL 04/17/2023 9:03 PM [facility] RDW-CV 13.6 11.3 - 14.8 % 04/17/2023 9:03 PM [facility] Platelet Count 288 150 - 420 x10E9/L 04/17/2023 9:03 PM [facility] MPV 9.7 7.8 - 11.4 fL 04/17/2023 9:03 PM [facility] Neutrophil % 56.0 41.0 - 74.0 % 04/17/2023 9:03 PM [facility] Lymphocyte % 31.1 17.0 - 47.0 % 04/17/2023 9:03 PM [facility] Monocyte % 8.8 3.0 - 11.0 % 04/17/2023 9:03 PM [facility] Eosinophil % 3.2 0.0 - 7.0 % 04/17/2023 9:03 PM [facility] Basophil % 0.4 0.0 - 1.6 % 04/17/2023 9:03 PM [facility] Immature Granulocytes % 0.5 0.0 - 1.0 % 04/17/2023 9:03 PM [facility] Neutrophil Absolute 5.59 1.60 - 7.50 x10E9/L 04/17/2023 9:03 PM [facility] Lymphocyte Absolute 3.10 1.00 - 4.40 x10E9/L 04/17/2023 9:03 PM [facility] Monocyte Absolute 0.88 0.15 - 1.00 x10E9/L 04/17/2023 9:03 PM [facility] Eosinophil Absolute 0.32 0.00 - 0.60 x10E9/L 04/17/2023 9:03 PM [facility] Basophil Absolute 0.04 0.00 - 0.13 x10E9/L 04/17/2023 9:03 PM [facility] Blood BLOOD SPECIMEN / Unknown Venipuncture / Unknown 04/17/2023 8:59 PM [facility] 04/17/2023 8:59 PM [facility] Lalit Matthew DO LAB - HEMATOLOGY ORD ERABLES [facility] [address] [place] [address] documented in this encounter Visit Diagnoses Diagnosis Chronic bilateral low back pain, unspecified whether sciatica present- Primary Chronic midline low back pain without sciatica Morbid obesity (HCC) Morbid obesity Morbid obesity (HCC) Morbid obesity Chronic midline low back pain without sciatica documented in this encounter Administered Medications Inactive Administered Medications - up to 3 most recent administrations Medication Order MAR Action Action Date Dose Rate Site 0.9% NaCl injection 1-10 mL 1-10 mL, Intracatheter, PRN, Other, peripheral line flush, Starting on Mon04/17/23 at 2038, Until Valeri 04/20/23 at 1653, Flush peripheral IV catheter with 1-10 mL of normal saline before and after medications and prn to clear blood from the line or to verify patency. 0.9% NaCl injection 3 mL 3 mL, Intracatheter, EVERY 8 HOURS, First dose on Mon04/17/23 at 2200, Until Discontinued, Flush peripheral IV catheter with 3 mL of normal saline every 8 hours. $ Given 04/20/2023 6:12 AM [facility] 3 mL $ Given 04/19/2023 8:38 PM [facility] 3 mL $ Given 04/19/2023 1:16 PM [facility] 3 mL acetaminophen (Tylenol) tablet 1,000 mg 1,000 mg, Oral, EVERY 8 HOURS, First dose on Mon04/19/23 at 1515, Until Discontinued, Patient preference for lesser PRN pain meds may be honored when the patient requests a less strong medication, a lower dose, or a less intrusive route of administration when the lesser drug, dose and route have been ordered for the patient. This patient request must be documented in the MAR. $ Given 04/20/2023 1:47 PM [facility] 1,000 mg $ Given 04/20/2023 6:12 AM [facility] 1,000 mg $ Given 04/19/2023 3:05 PM [facility] 1,000 mg amitriptyline (Elavil) tablet 25 mg 25 mg, Oral, AT BEDTIME, First dose on Mon04/18/23 at 2100, Until Discontinued $ Given 04/19/2023 8:39 PM [facility] 25 mg $ Given 04/18/2023 9:46 PM [facility] 25 mg dextrose 10 % IV bolus 12.5 g, at 468.75 mL/hr, Intravenous, PRN, Other, Bedside Glucose less than 70 mg/dL -If NOT able to eat and/or NPO and with IV Access, Starting on Mon04/18/23 at 1114, Until Valeri 04/20/23 at 1653, If NOT able to eat and/or NPO [...] NPO and with IV Access, Starting on Mon04/18/23 at 1114, Until Valeri 04/20/23 at 1653, If NOT able to eat and/or NPO [...] 25 mg, Oral, DAILY, First dose on Mon04/18/23 at 1230, Until Discontinued, Keep in patient lock box $ Given 04/19/2023 8:41 PM [facility] 25 mg $ Given 04/18/2023 9:48 PM [facility] 25 mg fosfomycin (Monurol) packet 3 g 3 g, Oral, ONCE, 1 dose, On Mon04/20/23 at 1200, Pour contents into 3-4 oz of water and stir., Indication for restricted anti-infective (Tier 2) therapy: Unable to use any other agent for cystitis, Site of anti-infective therapy: Urine/Genitourinary $ Given 04/20/2023 12:16 PM [facility] 3 g glucagon (Glucagen) injection 1 mg 1 mg, Subcutaneous, PRN, Bedside Glucose less than 70 mg/dL - If NOT able to eat and/or NPO and withOUT IV Access, Starting on Mon04/18/23 at 1114, Until Mon04/20/23 at 1653, If NOT able to eat and/or NPO [...] and discard unused portion glucose (Diabetic Use) (Dex4 Glucose) oral liquid Oral, PRN, Other, Bedside Glucose less than 70 mg/dL -If able to eat and does not have swallowing difficulties, Starting on Mon04/18/23 at 1114, Until Mon04/20/23 at 1653, If able to eat and can swallow thin liquids: For Bedside Glucose 54 - 69 mg/dL Give 15 grams of oral carbohydrates - 1 glucose liquid (see MAR) If patient refuses glucose liquid, then offer: - 4 ounces of fruit juice OR - 4 ounces non-diet soda OR - 8 ounces of fat-free milk For Bedside Glucose LESS than 54 mg/dL - verify with a second Bedside Glucose (from a different site) - If pt is symptomatic, do not delay treatment - If accuracy of the POC glucose is in question, confirm glucose with a STAT laboratory test. Give 30 grams of oral carbohydrates - 2 glucose liquid (see MAR) If patient refuses glucose liquid, then offer: - 8 ounces of fruit juice OR - 8 ounces non-diet soda OR - 16 ounces of fat-free milk Re-check and Re-treat blood glucose EVERY 10-25 minutes until blood glucose GREATER than or equal to 80 mg/dl. - If on recheck, bedside glucose 54-79 mg/dL - Give 15 grams of oral carbohydrates (see above for choices) NOTIFY PROVIDER OF HYPOGLYCEMIC EVENT. glucose (Diabetic Use) oral gel Oral, PRN, Other, Bedside Glucose less than 70 mg/dL -If able to eat and does not have swallowing difficulties, Starting on Mon04/18/23 at 1114, Until Mon04/20/23 at 1653, If able to eat and is better able to swallow gel: For Bedside Glucose 54 - 69 mg/dL [...] for choices) NOTIFY PROVIDER OF HYPOGLYCEMIC EVENT. glucose chew tablet 4 tablet 4 tablet (16 g), Oral, PRN, Other, Bedside Glucose less than 70 mg/dL -If able to eat and does not have swallowing difficulties, Starting on Mon04/18/23 at 1114, Until Mon04/20/23 at 1653, If able to eat and does not have swallowing difficulties: For Bedside Glucose 54 - 69 mg/dL Give 16 grams of oral carbohydrates - 4 glucose tabs (see MAR) If patient refuses glucose tabs, then offer: - 4 ounces of fruit juice OR - 4 ounces non-diet soda OR - 8 ounces of fat-free milk For Bedside Glucose LESS than 54 mg/dL - verify with a second Bedside Glucose (from a different site) - If pt is symptomatic, do not delay treatment - If accuracy of the POC glucose is in question, confirm glucose with a STAT laboratory test. Give 32 grams of oral carbohydrates - 8 glucose tabs (see MAR) If patient refuses glucose gel, [...] grams of oral carbohydrates (see above for choices). NOTIFY PROVIDER OF HYPOGLYCEMIC EVENT. hydroCHLOROthiazide (Hydrodiuril) tablet 12.5 mg 12.5 mg, Oral, DAILY, First dose on Mon04/18/23 at 1145, Until Discontinued $ Given 04/20/2023 8:22 AM [facility] 12.5 mg $ Given 04/19/2023 8:40 AM [facility] 12.5 mg $ Given 04/18/2023 1:39 PM [facility] 12.5 mg HYDROcodone-acetaminophen ([place]) 10-325 MG tablet 1 tablet 1 tablet, Oral, EVERY 6 HOURS PRN, Severe Pain, Starting on Mon04/18/23 at 1105, Until Mon04/19/23 at 1444, Patient preference for lesser PRN pain meds may be honored when the patient requests a less strong medication, a lower dose, or a less intrusive route of administration when the lesser drug, dose and route have been ordered for the patient. This patient request must be documented in the MAR. $ Given 04/19/2023 10:58 AM [facility] 1 tablet $ Given 04/19/2023 4:25 AM [facility] 1 tablet $ Given 04/18/2023 10:40 PM [facility] 1 tablet insulin aspart (NovoLOG) pen 0-12 Units 0-12 Units, Subcutaneous, 3 TIMES DAILY WITH MEALS, First dose on Mon04/18/23 at 1200, Until Discontinued, Standard Dose: Correction Insulin Bedside [...] give at the same time. $ Given 04/20/2023 12:15 PM [facility] 8 Units Abdominal Tissue $ Given 04/20/2023 8:21 AM [facility] 2 Units Ab dominal Tissue $ Given 04/19/2023 5:45 PM [facility] 10 Units Ab dominal Tissue insulin aspart (NovoLOG) pen 0-5 Units 0-5 Units, Subcutaneous, AT BEDTIME, First dose on Mon04/18/23 at 2100, Until Discontinued, Standard Dose: Correction [...] give at the same time. $ Given 04/18/2023 9:51 PM [facility] 3 Units Abdominal Tissue insulin aspart (NovoLOG) pen 15 Units 15 Units, Subcutaneous, 3 TIMES DAILY WITH MEALS, First dose on Mon04/18/23 at 1200, Until Discontinued, Hold MEALTIME insulin if patient is NPO or eating less than 50% of meals. -OR- if carb intake for the meal is less than 30 grams. $ Given 04/20/2023 12:14 PM [facility] 15 Units Abdominal Tissue $ Given 04/20/2023 8:20 AM [facility] 15 Units Ab dominal Tissue $ Given 04/19/2023 5:45 PM [facility] 15 Units Ab dominal Tissue insulin glargine (Lantus) pen 45 Units 45 Units, Subcutaneous, EVERY MORNING, First dose on Mon04/18/23 at 1200, Until Discontinued, DO NOT HOLD even if patient is NPO Consider calling physician for dose reduction if patient is made NPO. . WASTE DISPOSAL INSTRUCTIONS: Black Bin Disposal required. $ Given 04/19/2023 8:42 AM [facility] 45 Units Abdominal Tissue $ Given 04/18/2023 1:45 PM [facility] 45 Units Ab dominal Tissue insulin glargine (Lantus) pen 50 Units 50 Units, Subcutaneous, EVERY MORNING, First dose (after last modification) on Mon04/20/23 at 0700, Until Discontinued, DO NOT HOLD even if patient is NPO Consider calling physician for dose reduction if patient is made NPO. . WASTE DISPOSAL INSTRUCTIONS: Black Bin Disposal required. $ Given 04/20/2023 8:20 AM [facility] 50 Units Abdominal Tissue lidocaine (Lidoderm) 5 % patch 1 patch 1 patch, Administer over 12 Hours, EVERY 24 HOURS, First dose on Mon04/18/23 at 1500, Until Discontinued, Apply to low back and remove patch after a max of 12 hours of application within a 24 hour period. $ Applied 04/18/2023 2:58 PM [facility] 1 patch Back lidocaine (Lidoderm) 5 % patch 1 patch 1 patch, Administer over 12 Hours, EVERY 24 HOURS, First dose on Mon04/19/23 at 1530, Until Discontinued, Cut patch into strips and apply near areas of pain and remove patch after a max of 12 hours of application within a 24 hour period. Do not put patches on healing incisions. $ Applied 04/19/2023 3:03 PM [facility] 1 patch Back methocarbamol (Robaxin) tablet 500 mg 500 mg, Oral, EVERY 8 HOURS, First dose on Mon04/19/23 at 1515, Until Discontinued $ Given 04/20/2023 1:47 PM [facility] 500 mg $ Given 04/20/2023 6:12 AM [facility] 500 mg $ Given 04/19/2023 11:16 PM [facility] 500 mg methylPREDNISolone (Medrol) tablet 4 mg 4 mg, Oral, EVERY 6 HOURS, 8 doses, First dose on Mon04/18/23 at 1800, Last dose on Mon04/20/23 at 1200 $ Given 04/20/2023 12:16 PM [facility] 4 mg $ Given 04/20/2023 6:13 AM [facility] 4 mg $ Given 04/19/2023 11:16 PM [facility] 4 mg methylPREDNISolone sod succ (SOLU-Medrol) injection 125 mg 125 mg, Intravenous, ONCE, 1 dose, On Mon04/18/23 at 0145 $ Given 04/18/2023 2:47 AM [facility] 125 mg morphine injection 1 mg 1 mg, Intravenous, Once, 1 dose, On Mon04/18/23 at 1430, Patient preference for lesser PRN pain meds may be honored when the patient requests a less strong medication, a lower dose, or a less intrusive route of administration when the lesser drug, dose and route have been ordered for the patient. This patient request must be documented in the MAR. $ Given 04/18/2023 2:55 PM [facility] 1 mg morphine injection 2 mg 2 mg, Intravenous, EVERY 6 HOURS PRN, Severe Pain, Starting on Mon04/18/23 at 1109, Until Mon04/19/23 at 1531, If oral route is unavailable. Patient preference for lesser PRN pain meds may be honored when the patient requests a less strong medication, a lower dose, or a less intrusive route of administration when the lesser drug, dose and route have been ordered for the patient. This patient request must be documented in the MAR. $ Given 04/19/2023 3:05 PM [facility] 2 mg $ Given 04/19/2023 6:32 AM [facility] 2 mg $ Given 04/18/2023 9:44 PM [facility] 2 mg morphine injection 4 mg 4 mg, Intravenous, NOW, 1 dose, On Mon04/17/23 at 2045, Patient preference for lesser PRN pain meds may be honored when the patient requests a less strong medication, a lower dose, or a less intrusive route of administration when the lesser drug, dose and route have been ordered for the patient. This patient request must be documented in the MAR. $ Given 04/17/2023 9:01 PM [facility] 4 mg morphine injection 4 mg 4 mg, Intravenous, NOW, 1 dose, On Mon04/18/23 at 0130, Patient preference for lesser PRN pain meds may be honored when the patient requests a less strong medication, a lower dose, or a less intrusive route of administration when the lesser drug, dose and route have been ordered for the patient. This patient request must be documented in the MAR. $ Given 04/18/2023 2:47 AM [facility] 4 mg ondansetron (disintegrating) (Zofran ODT) tablet 4 mg 4 mg, Oral, EVERY 6 HOURS PRN, Nausea/Vomiting, Starting on Mon04/18/23 at 1108, Until Mon04/20/23 at 1653, Dissolved orally on tongue ondansetron (Zofran) injection 4 mg 4 mg, Intravenous, NOW, 1 dose, On Mon04/17/23 at 2045, Administer over 2 to 5 minutes. $ Given 04/17/2023 9:00 PM [facility] 4 mg ondansetron (Zofran) injection 4 mg 4 mg, Intravenous, EVERY 6 HOURS PRN, Nausea/Vomiting, Starting on Mon04/18/23 at 1108, Until Valeri 04/20/23 at 1653, Administer IV if patient is NPO, actively vomiting, or unable to swallow. oxyCODONE (immediate release) (Roxicodone) tablet 10 mg 10 mg, Oral, EVERY 4 HOURS PRN, Severe Pain, Starting on Mon04/19/23 at 1443, Until Valeri 04/20/23 at 1653, Patient preference for lesser PRN pain meds may be honored when the patient requests a less strong medication, a lower dose, or a less intrusive route of administration when the lesser drug, dose and route have been ordered for the patient. This patient request must be documented in the MAR. $ Given 04/20/2023 8:26 AM [facility] 10 mg $ Given 04/20/2023 2:49 AM [facility] 10 mg oxyCODONE (immediate release) (Roxicodone) tablet 5 mg 5 mg, Oral, EVERY 4 HOURS PRN, Moderate Pain, Starting on Mon04/19/23 at 1443, Until Valeri 04/20/23 at 1653, Patient preference for lesser PRN pain meds may be honored when the patient requests a less strong medication, a lower dose, or a less intrusive route of administration when the lesser drug, dose and route have been ordered for the patient. This patient request must be documented in the MAR. $ Given 04/19/2023 8:40 PM [facility] 5 mg rivaroxaban (Xarelto) tablet 20 mg 20 mg, Oral, DAILY WITH FOOD, First dose on Mon04/18/23 at 1200, Until Discontinued, For tube administration, please refer to the MAR References links: Administration Dose of 15 mg or greater should be taken with food $ Given 04/20/2023 8:22 AM CS T 20 mg $ Given 04/19/2023 8:40 AM [facility] 20 mg $ Given 04/18/2023 2:50 PM [facility] 20 mg rOPINIRole (Requip) tablet 5 mg 5 mg, Oral, AT BEDTIME, First dose on Mon04/18/23 at 2100, Until Discontinued $ Given 04/19/2023 8:39 PM [facility] 5 mg $ Given 04/18/2023 9:46 PM [facility] 5 mg senna (Senokot) tablet 8.6 mg 8.6 mg, Oral, DAILY, First dose on Mon04/18/23 at 1145, Until Discontinued $ Given 04/20/2023 8:22 AM [facility] 8.6 mg tolterodine ER 24hr (Detrol LA) capsule 4 mg 4 mg, Oral, DAILY, First dose on Mon04/18/23 at 1145, Until Discontinued, Do not crush or chew. $ Given 04/20/2023 8:22 AM [facility] 4 mg $ Given 04/19/2023 8:40 AM [facility] 4 mg $ Given 04/18/2023 2:50 PM [facility] 4 mg documented in this encounter Active and Recently Administered Medications Times are shown in [facility]. Scheduled Medication Order 04/18/2023 04/19/2023 04/20/2023 0.9% NaCl injection 3 mL(Linked Group 1) 3 mL, Intracatheter, EVERY 8 HOURS, First dose on Mon04/17/23 at 2200, Until Discontinued, Flush peripheral IV catheter with 3 mL of normal saline every 8 hours. 0187 (Not Administered - Provider: Al Pedro RN - Reason: See Comments - Comment: pt off unit)1341 ($ Given - Provider: Al Pedro RN)2144 ($ Given - Provider: Jossy Valero RN) 0426 ($ Given - Provider: Jossy Valero RN)0632 ($ Given - Provider: Jossy Valero RN)1316 ($ Given - Provider: Al Pedro RN)203 ($ Given - Provider: Jossy Valero RN) 0612 ($ Given - Provider: Jossy Valero RN)1348 (Not Administered - Provider: Serena Sr RN - Reason: Loss of Access) acetaminophen (Tylenol) tablet 1,000 mg 1,000 mg, Oral, EVERY 8 HOURS, First dose on Mon04/19/23 at 1515, Until Discontinued, Patient preference for lesser PRN pain meds may be honored when the patient requests a less strong medication, a lower dose, or a less intrusive route of administration when the lesser drug, dose and route have been ordered for the patient. This patient request must be documented in the MAR. 1505 ($ Given - Provider: Al Pedro RN)2319 (Not Administered - Provider: Jossy Valero RN - Reason: Refused-Patient - Comment: pt states not in pain right now) 0612 ($ Given - Provider: Jossy Valero RN)1347 ($ Given - Provider: Serena Sr, NURIS) amitriptyline (Elavil) tablet 25 mg 25 mg, Oral, AT BEDTIME, First dose on Mon04/18/23 at 2100, Until Discontinued 2145 ($ Given - Provider: Jossy Valero RN) 2038 ($ Given - Provider: Jossy Valero RN) exemestane (Aromasin) tablet 25 mg 25 mg, Oral, DAILY, First dose on Mon04/18/23 at 1230, Until Discontinued, Keep in patient lock box 1556 (Not Administered - Provider: Al Pedro RN - Reason: See Comments - Comment: takes at night reschuduled)2147 ($ Given - Provider: Jossy Valero RN) 2040 ($ Given - Provider: Jossy Valero RN) fosfomycin (Monurol) packet 3 g (COMPLETED) 3 g, Oral, ONCE, 1 dose, On Mon04/20/23 at 1200, Pour contents into 3-4 oz of water and stir., Indication for restricted anti-infective (Tier 2) therapy: Unable to use any other agent for cystitis, Site of anti-infective therapy: Urine/Genitourinary 1216 ($ Given - Provider: Serena Sr, RN) hydroCHLOROthiazide (Hydrodiuril) tablet 12.5 mg 12.5 mg, Oral, DAILY, First dose on Mon04/18/23 at 1145, Until Discontinued 1339 ($ Given - Provider: Al Pedro RN) 0840 ($ Given - Provider: Al Pedro, NURIS) 0822 ($ Given - Provider: Serena Sr, RN) insulin aspart (NovoLOG) pen 0-12 Units 0-12 Units, Subcutaneous, 3 TIMES DAILY WITH MEALS, First dose on Mon04/18/23 at 1200, Until Discontinued, Standard Dose: Correction Insulin Bedside [...] combine and give at the same time. 1346 ($ Given - Provider: Al Pedro RN)1701 ($ Given - Provider: Al Pedro, NURIS) 0842 ($ Given - Provider: Al Pedro, RN)1315 ($ Given - Provider: Al Pedro, RN)1745 ($ Given - Provider: Al Pedro, RN) 0821 ($ Given - Provider: Serena Sr, NURIS)1215 ($ Given - Provider: Serena Sr, RN) insulin aspart (NovoLOG) pen 0-5 Units 0-5 Units, Subcutaneous, AT BEDTIME, First dose on Mon04/18/23 at 2100, Until Discontinued, Standard Dose: Correction [...] combine and give at the same time. 2150 ($ Given - Provider: Jossy Valero RN) 2043 (Not Administered - Provider: Jossy Valero RN - Reason: Per Administration Instructions) insulin aspart (NovoLOG) pen 15 Units 15 Units, Subcutaneous, 3 TIMES DAILY WITH MEALS, First dose on Mon04/18/23 at 1200, Until Discontinued, Hold MEALTIME insulin if patient is NPO or eating less than 50% of meals. -OR- if carb intake for the meal is less than 30 grams. 1346 ($ Given - Provider: Al Pedro RN)1700 ($ Given - Provider: Al Pedro RN) 0842 ($ Given - Provider: Al Pedro, NURIS)1315 ($ Given - Provider: Al Pedro, RN)1745 ($ Given - Provider: Al Pedro, RN) 0820 ($ Given - Provider: Serena Sr, NURIS)1214 ($ Given - Provider: Serena Sr, NURIS) insulin glargine (Lantus) pen 45 Units (CANCELED) 45 Units, Subcutaneous, EVERY MORNING, First dose on Mon04/18/23 at 1200, Until Discontinued, DO NOT HOLD even if patient is NPO Consider calling physician for dose reduction if patient is made NPO. . WASTE DISPOSAL INSTRUCTIONS: Black Bin Disposal required. 1345 ($ Given - Provider: Al Pedro RN) 0842 ($ Given - Provider: Al Pedro, NURIS) insulin glargine (Lantus) pen 50 Units 50 Units, Subcutaneous, EVERY MORNING, First dose (after last modification) on Mon04/20/23 at 0700, Until Discontinued, DO NOT HOLD even if patient is NPO Consider calling physician for dose reduction if patient is made NPO. . WASTE DISPOSAL INSTRUCTIONS: Black Bin Disposal required. 0820 ($ Given - Provider: Serena rS RN) lidocaine (Lidoderm) 5 % patch 1 patch (CANCELED) 1 patch, Administer over 12 Hours, EVERY 24 HOURS, First dose on Mon04/18/23 at 1500, Until Discontinued, Apply to low back and remove patch after a max of 12 hours of application within a 24 hour period. 1458 ($ Applied - Provider: Al Pedro RN) 0258 (Removed - Provider: Jossy Valero RN) lidocaine (Lidoderm) 5 % patch 1 patch 1 patch, Administer over 12 Hours, EVERY 24 HOURS, First dose on Mon04/19/23 at 1530, Until Discontinued, Cut patch into strips and apply near areas of pain and remove patch after a max of 12 hours of application within a 24 hour period. Do not put patches on healing incisions. 1503 ($ Applied - Provider: Al Pedro RN) 0305 (Removed - Provider: Jossy Valero RN) methocarbamol (Robaxin) tablet 500 mg 500 mg, Oral, EVERY 8 HOURS, First dose on Mon04/19/23 at 1515, Until Discontinued 1505 ($ Given - Provider: Al Pedro RN)2316 ($ Given - Provider: Jossy Valero RN) 0612 ($ Given - Provider: Jossy Valero RN)1347 ($ Given - Provider: Serena Sr, NURIS) methylPREDNISolone (Medrol) tablet 4 mg (COMPLETED) 4 mg, Oral, EVERY 6 HOURS, 8 doses, First dose on Mon04/18/23 at 1800, Last dose on Mon04/20/23 at 1200 1901 ($ Given - Provider: Al Pedro RN)2330 ($ Given - Provider: Jossy Valero RN) 0633 ($ Given - Provider: Jossy Valero RN)1314 ($ Given - Provider: Al Pedro RN)1744 ($ Given - Provider: Al Pedro RN)2316 ($ Given - Provider: Jossy Valero RN) 0613 ($ Given - Provider: Jossy Valero RN)1216 ($ Given - Provider: Serena Sr, NURIS) methylPREDNISolone sod succ (SOLU-Medrol) injection 125 mg (COMPLETED) 125 mg, Intravenous, ONCE, 1 dose, On Mon04/18/23 at 0145 0247 ($ Given - Provider: Bubba Brice RN) morphine injection 1 mg (COMPLETED) 1 mg, Intravenous, Once, 1 dose, On Mon04/18/23 at 1430, Patient preference for lesser PRN pain meds may be honored when the patient requests a less strong medication, a lower dose, or a less intrusive route of administration when the lesser drug, dose and route have been ordered for the patient. This patient request must be documented in the MAR. 1455 ($ Given - Provider: Al Pedro RN) morphine injection 4 mg (COMPLETED) 4 mg, Intravenous, NOW, 1 dose, On Mon04/18/23 at 0130, Patient preference for lesser PRN pain meds may be honored when the patient requests a less strong medication, a lower dose, or a less intrusive route of administration when the lesser drug, dose and route have been ordered for the patient. This patient request must be documented in the MAR. 0247 ($ Given - Provider: Bubba Brice RN) rivaroxaban (Xarelto) tablet 20 mg 20 mg, Oral, DAILY WITH FOOD, First dose on Mon04/18/23 at 1200, Until Discontinued, For tube administration, please refer to the MAR References links: Administration Dose of 15 mg or greater should be taken with food 1450 ($ Given - Provider: Al Pedro RN) 0840 ($ Given - Provider: Al Pedro RN) 0822 ($ Given - Provider: Serena Sr, NURIS) rOPINIRole (Requip) tablet 5 mg 5 mg, Oral, AT BEDTIME, First dose on Mon04/18/23 at 2100, Until Discontinued 2146 ($ Given - Provider: Jossy Valero, NURIS) 2039 ($ Given - Provider: Jossy Valero, NURIS) senna (Senokot) tablet 8.6 mg 8.6 mg, Oral, DAILY, First dose on Mon04/18/23 at 1145, Until Discontinued 1341 (Not Administered - Provider: Al Pedro RN - Reason: Refused-Patient) 0846 (Not Administered - Provider: Al Pedro RN - Reason: Refused-Patient) 0822 ($ Given - Provider: Serena Sr, NURIS) tolterodine ER 24hr (Detrol LA) capsule 4 mg 4 mg, Oral, DAILY, First dose on Mon04/18/23 at 1145, Until Discontinued, Do not crush or chew. 1450 ($ Given - Provider: Al Pedro, RN) 0840 ($ Given - Provider: Al Pedro, RN) 0822 ($ Given - Provider: Serena Sr, RN) PRN Medication Order 04/18/2023 04/19/2023 04/20/2023 0.9% NaCl injection 1-10 mL(Linked Group 1) 1-10 mL, Intracatheter, PRN, Other, peripheral line flush, Starting on Mon04/17/23 at 2038, Until Mon04/20/23 at 1653, Flush peripheral IV catheter with 1-10 mL of normal saline before and after medications and prn to clear blood from the line or to verify patency. dextrose 10 % IV bolus(Linked Group 2) 12.5 g, at 468.75 mL/hr, Intravenous, PRN, Other, Bedside Glucose less than 70 mg/dL -If NOT able to eat and/or NPO and with IV Access, Starting on Mon04/18/23 at 1114, Until Mon04/20/23 at 1653, If NOT able to eat and/or NPO [...] NPO and with IV Access, Starting on Mon04/18/23 at 1114, Until Mon04/20/23 at 1653, If NOT able to eat and/or NPO [...] NPO and withOUT IV Access, Starting on Mon04/18/23 at 1114, Until Mon04/20/23 at 1653, If NOT able to eat and/or NPO [...] and discard unused portion glucose (Diabetic Use) (Dex4 Glucose) oral liquid(Linked Group 3) Oral, PRN, Other, Bedside Glucose less than 70 mg/dL -If able to eat and does not have swallowing difficulties, Starting on Mon04/18/23 at 1114, Until Mon04/20/23 at 1653, If able to eat and can swallow thin liquids: For Bedside Glucose 54 - 69 mg/dL Give 15 grams of oral carbohydrates - 1 glucose liquid (see MAR) If patient refuses glucose liquid, then offer: - 4 ounces of fruit juice OR - 4 ounces non-diet soda OR - 8 ounces of fat-free milk For Bedside Glucose LESS than 54 mg/dL - verify with a second Bedside Glucose (from a different site) - If pt is symptomatic, do not delay treatment - If accuracy of the POC glucose is in question, confirm glucose with a STAT laboratory test. Give 30 grams of oral carbohydrates - 2 glucose liquid (see MAR) If patient refuses glucose liquid, then offer: - 8 ounces of fruit juice OR - 8 ounces non-diet soda OR - 16 ounces of fat-free milk Re-check and Re-treat blood glucose EVERY 10-25 minutes until blood glucose GREATER than or equal to 80 mg/dl. - If on recheck, bedside glucose 54-79 mg/dL - Give 15 grams of oral carbohydrates (see above for choices) NOTIFY PROVIDER OF HYPOGLYCEMIC EVENT. glucose (Diabetic Use) oral gel(Linked Group 3) Oral, PRN, Other, Bedside Glucose less than 70 mg/dL -If able to eat and does not have swallowing difficulties, Starting on Mon04/18/23 at 1114, Until Mon04/20/23 at 1653, If able to eat and is better able to swallow gel: For Bedside Glucose 54 - 69 mg/dL [...] for choices) NOTIFY PROVIDER OF HYPOGLYCEMIC EVENT. glucose chew tablet 4 tablet(Linked Group 3) 4 tablet (16 g), Oral, PRN, Other, Bedside Glucose less than 70 mg/dL -If able to eat and does not have swallowing difficulties, Starting on Mon04/18/23 at 1114, Until Mon04/20/23 at 1653, If able to eat and does not have swallowing difficulties: For Bedside Glucose 54 - 69 mg/dL Give 16 grams of oral carbohydrates - 4 glucose tabs (see MAR) If patient refuses glucose tabs, then offer: - 4 ounces of fruit juice OR - 4 ounces non-diet soda OR - 8 ounces of fat-free milk For Bedside Glucose LESS than 54 mg/dL - verify with a second Bedside Glucose (from a different site) - If pt is symptomatic, do not delay treatment - If accuracy of the POC glucose is in question, confirm glucose with a STAT laboratory test. Give 32 grams of oral carbohydrates - 8 glucose tabs (see MAR) If patient refuses glucose gel, [...] grams of oral carbohydrates (see above for choices). NOTIFY PROVIDER OF HYPOGLYCEMIC EVENT. HYDROcodone-acetaminophe n ([place]) 10-325 MG tablet 1 tablet (CANCELED) 1 tablet, Oral, EVERY 6 HOURS PRN, Severe Pain, Starting on Mon04/18/23 at 1105, Until Mon04/19/23 at 1444, Patient preference for lesser PRN pain meds may be honored when the patient requests a less strong medication, a lower dose, or a less intrusive route of administration when the lesser drug, dose and route have been ordered for the patient. This patient request must be documented in the MAR. 1339 ($ Given - Provider: Al Pedro RN)2240 ($ Given - Provider: Jossy Valero RN) 0425 ($ Given - Provider: Jossy Valero RN)1058 ($ Given - Provider: Al Pedro, NURIS) hydrOXYzine HCl (Atarax) tablet 25 mg 25 mg, Oral, 3 TIMES DAILY PRN, Itching, Starting on Mon04/18/23 at 1105, Until Valeri 04/20/23 at 1653 morphine injection 2 mg (CANCELED) 2 mg, Intravenous, EVERY 6 HOURS PRN, Severe Pain, Starting on Mon04/18/23 at 1109, Until Mon04/19/23 at 1531, If oral route is unavailable. Patient preference for lesser PRN pain meds may be honored when the patient requests a less strong medication, a lower dose, or a less intrusive route of administration when the lesser drug, dose and route have been ordered for the patient. This patient request must be documented in the JUN. 1139 ($ Given - Provider: Al Pedro, RN)2144 ($ Given - Provider: Jossy Valero RN) 0632 ($ Given - Provider: Jossy Valero RN)1505 ($ Given - Provider: Al Pedro RN) ondansetron (disintegrating) (Zofran ODT) tablet 4 mg(Linked Group 4) 4 mg, Oral, EVERY 6 HOURS PRN, Nausea/Vomiting, Starting on Mon04/18/23 at 1108, Until Valeri 04/20/23 at 1653, Dissolved orally on tongue ondansetron (Zofran) injection 4 mg(Linked Group 4) 4 mg, Intravenous, EVERY 6 HOURS PRN, Nausea/Vomiting, Starting on Mon04/18/23 at 1108, Until Valeri 04/20/23 at 1653, Administer IV if patient is NPO, actively vomiting, or unable to swallow. oxyCODONE (immediate release) (Roxicodone) tablet 10 mg(Linked Group 5) 10 mg, Oral, EVERY 4 HOURS PRN, Severe Pain, Starting on Mon04/19/23 at 1443, Until Valeri 04/20/23 at 1653, Patient preference for lesser PRN pain meds may be honored when the patient requests a less strong medication, a lower dose, or a less intrusive route of administration when the lesser drug, dose and route have been ordered for the patient. This patient request must be documented in the JUN. 2039 (See Alternative - Provider: Jossy Valero RN) 0249 ($ Given - Provider: Jossy Valero RN)0826 ($ Given - Provider: Serena Sr RN) oxyCODONE (immediate release) (Roxicodone) tablet 5 mg(Linked Group 5) 5 mg, Oral, EVERY 4 HOURS PRN, Moderate Pain, Starting on Mon04/19/23 at 1443, Until Valeri 04/20/23 at 1653, Patient preference for lesser PRN pain meds may be honored when the patient requests a less strong medication, a lower dose, or a less intrusive route of administration when the lesser drug, dose and route have been ordered for the patient. This patient request must be documented in the 2039 ($ Given - Provider: Jossy Valero, RN) 0241 (See Alternative - Provider: Jossy Valero RN)0899 (See Alternative - Provider: Serena Sr, NURIS) polyethylene glycol 3350 (Miralax) packet 17 g 17 g, Oral, DAILY PRN, Constipation, Starting on Mon04/18/23 at 1110, Until Mon04/20/23 at 1653, Mix in 8 ounces of water, juice, soda, coffee or tea prior to administration Linked Groups Order Group 1: SALINE LOCK, INSERT AND MAINTAIN (CANCELED) Routine, CONTINUOUS, Starting on Mon04/17/23 at 2044, Until Specified, New collection, Task Completed: Yes And 0.9% NaCl injection 3 mLJump to med 3 mL, Intracatheter, EVERY 8 HOURS, First dose on Mon04/17/23 at 2200, Until Discontinued, Flush peripheral IV catheter with 3 mL of normal saline every 8 hours. And 0.9% NaCl injection 1-10 mLJump to med 1-10 mL, Intracatheter, PRN, Other, peripheral line flush, Starting on Mon04/17/23 at 203, Until Mon04/20/23 at 165, Flush peripheral IV catheter with 1-10 mL of normal saline before and after medications and prn to clear blood from the line or to verify patency. Group 2: dextrose 10 % IV bolusJump to med 12.5 g, at 468.75 mL/hr, Intravenous, PRN, Other, Bedside Glucose less than 70 mg/dL -If NOT able to eat and/or NPO and with IV Access, Starting on Mon04/18/23 at 1114, Until Mon04/20/23 at 165, If NOT able to eat and/or NPO [...] NPO and with IV Access, Starting on Mon04/18/23 at 1114, Until Mon04/20/23 at 1653, If NOT able to eat and/or NPO [...] NPO and withOUT IV Access, Starting on Mon04/18/23 at 1114, Until Mon04/20/23 at 1653, If NOT able to eat and/or NPO [...] use immediately and discard unused portion Group 3: glucose (Diabetic Use) (Dex4 Glucose) oral liquidJump to med Oral, PRN, Other, Bedside Glucose less than 70 mg/dL -If able to eat and does not have swallowing difficulties, Starting on Mon04/18/23 at 1114, Until Mon04/20/23 at 1653, If able to eat and can swallow thin liquids: For Bedside Glucose 54 - 69 mg/dL Give 15 grams of oral carbohydrates - 1 glucose liquid (see MAR) If patient refuses glucose liquid, then offer: - 4 ounces of fruit juice OR - 4 ounces non-diet soda OR - 8 ounces of fat-free milk For Bedside Glucose LESS than 54 mg/dL - verify with a second Bedside Glucose (from a different site) - If pt is symptomatic, do not delay treatment - If accuracy of the POC glucose is in question, confirm glucose with a STAT laboratory test. Give 30 grams of oral carbohydrates - 2 glucose liquid (see MAR) If patient refuses glucose liquid, then offer: - 8 ounces of fruit juice OR - 8 ounces non-diet soda OR - 16 ounces of fat-free milk Re-check and Re-treat blood glucose EVERY 10-25 minutes until blood glucose GREATER than or equal to 80 mg/dl. - If on recheck, bedside glucose 54-79 mg/dL - Give 15 grams of oral carbohydrates (see above for choices) NOTIFY PROVIDER OF HYPOGLYCEMIC EVENT. Or glucose (Diabetic Use) oral gelJump to med Oral, PRN, Other, Bedside Glucose less than 70 mg/dL -If able to eat and does not have swallowing difficulties, Starting on Mon04/18/23 at 1114, Until Mon04/20/23 at 1653, If able to eat and is better able to swallow gel: For Bedside Glucose 54 - 69 mg/dL Give 15 grams of oral carbohydrates - 1 glucose gel (see MAR) If patient refuses glucose gel, then offer: - 4 ounces of fruit juice OR - 4 ounces non- diet soda OR - 8 ounces of fat-free [...] for choices) NOTIFY PROVIDER OF HYPOGLYCEMIC EVENT. Or glucose chew tablet 4 tabletJump to med 4 tablet (16 g), Oral, PRN, Other, Bedside Glucose less than 70 mg/dL -If able to eat and does not have swallowing difficulties, Starting on Mon04/18/23 at 1114, Until Valeri 04/20/23 at 1653, If able to eat and does not have swallowing difficulties: For Bedside Glucose 54 - 69 mg/dL Give 16 grams of oral carbohydrates - 4 glucose tabs (see MAR) If patient refuses glucose tabs, then offer: - 4 ounces of fruit juice OR - 4 ounces non-diet soda OR - 8 ounces of fat-free milk For Bedside Glucose LESS than 54 mg/dL - verify with a second Bedside Glucose (from a different site) - If pt is symptomatic, do not delay treatment - If accuracy of the POC glucose is in question, confirm glucose with a STAT laboratory test. Give 32 grams of oral carbohydrates - 8 glucose tabs (see MAR) If patient refuses glucose gel, [...] grams of oral carbohydrates (see above for choices). NOTIFY PROVIDER OF HYPOGLYCEMIC EVENT. Group 4: ondansetron (disintegrating) (Zofran ODT) tablet 4 mgJump to med 4 mg, Oral, EVERY 6 HOURS PRN, Nausea/Vomiting, Starting on Mon04/18/23 at 1108, Until Valeri 04/20/23 at 1653, Dissolved orally on tongue Or ondansetron (Zofran) injection 4 mgJump to med 4 mg, Intravenous, EVERY 6 HOURS PRN, Nausea/Vomiting, Starting on Mon04/18/23 at 1108, Until Valeri 04/20/23 at 1653, Administer IV if patient is NPO, actively vomiting, or unable to swallow. Group 5: oxyCODONE (immediate release) (Roxicodone) tablet 5 mgJump to med 5 mg, Oral, EVERY 4 HOURS PRN, Moderate Pain, Starting on Mon04/19/23 at 1443, Until Valeri 04/20/23 at 1653, Patient preference for lesser PRN pain meds may be honored when the patient requests a less strong medication, a lower dose, or a less intrusive route of administration when the lesser drug, dose and route have been ordered for the patient. This patient request must be documented in the MAR. Or oxyCODONE (immediate release) (Roxicodone) tablet 10 mgJump to med 10 mg, Oral, EVERY 4 HOURS PRN, Severe Pain, Starting on Mon04/19/23 at 1443, Until Valeri 04/20/23 at 1653, Patient preference for lesser PRN pain meds may be honored when the patient requests a less strong medication, a lower dose, or a less intrusive route of administration when the lesser drug, dose and route have been ordered for the patient. This patient request must be documented in the MAR. documented in this encounter Care Teams Hooker Operator Relationship Specialty Start Date End Date Justen Gale MD PCP - General 07/05/21 documented as of this encounter
--- OUTSIDE RECORDS SUMMARY | 2024-04-26 02:31 | XMS_ITS | Encounter Summary ---
Author Organization [facility] Address [address] [place] [address] Care Team Providers Care Software Solutions Architect Name Role Phone Justen Gale MD Primary Care Provider [phone] Reason for Visit * Neurology (Emergency) - Closed Specialty Diagnoses / Procedures Referred By Elyssa benavides Referred To Contact Electrophysiology Diagnoses Left leg weakness Procedures EMG WITH NERVE CONDUCTION STUDY Melly Banks APRN-CNP [email or web address] [id number] Referral ID Status Reason Start Date Expiration Date Visits Re quested Visits Authorized [id number] Closed 05/22/2023 05/21/2024 1 1 Encounter Details Date Type Department Care Team (Latest Contact Info) Description 05/31/2023 1:41 PM [facility] - 05/31/2023 11:59 PM [facility] Hospital Encounter [facility], [address] [place] [address] Melly Banks APRN-SANDING MACHINE BUFFER [email or web address] [id number] Discharge Disposition: Home or Self Care Social [...] medical care, and heating? Somewhat hard 05/16/2023 [facility] [place] [facility] - Occupational Stress [...] slept in a halfway (including now)? No 05/16/2023 Sex and Gender [...] No 02/22/2023 documented as of this encounter Medications at Time of Discharge [...] 4 times daily 300 Each 11/16/2021 Lancets (AfrimarketTOUCH DELICA PLUS 33G EXTRA FINE LANCET) USE [...] Take 1 tablet by mouth once daily AfrimarketTOUCH ULTRA test strip 4 times daily 02/01/2021 rivaroxaban (Xarelto) 20 MG tabletIndications:Deep Vein Thrombosis,Pulmonary Embolism Take 1 (one) tablet by mouth daily with food Reasons: Blockage of Blood Vessel to Lung by a Particle, Blood Clot in a Deep Vein rOPINIRole (REQUIP) 5 MG tablet TAKE 1 TABLET BY MOUTH EVERY NIGHT 06/09/2021 amitriptyline (ELAVIL) 25 MG tabletIndications:for restless legs Take 1 (one) tablet by mouth at bedtime Reasons: for restless legs 06/05/2023 HYDROcodone-acetaminoph en ([place]) 10-325 MG tabletIndications:Chron ic left-sided low back pain with left-sided sciatica Take 1 (one) tablet by mouth every 8 hours as needed for Pain Takes 3-4 times a day 12 tablet 05/20/2023 06/17/2023 methenamine hippurate (Hiprex) 1 GM tablet TAKE 1 TABLET BY MOUTH TWICE DAILY 60 tablet 3 12/14/2022 07/12/2023 oxyBUTYnin CR 24hr (Ditropan XL) 15 MG tablet Take 1 (one) tablet by mouth once daily 90 tablet 4 08/15/2022 03/08/2024 documented as of this encounter Procedure Notes * Stanford Saldana MD - 05/31/2023 11:59 PM CSTAssociated Order(s): EMG WITH NERVE CONDUCTION STUDY Images from the original note were not included. [facility] [address] [place] [address] Patient: Karly Marques V #: Physician: Stanford Saldana MD Sex: Female ID#: [id number] Ref Phys: ITA Patel : [id number] Date: 05/31/2023 Hr Recruiter: Christin Panchal Patient Complaints: The patient is a 67 year old female with complaints of back pain, pain, numbness, weakness, and tingling in bilateral lower extremities. The symptoms have been present for 12 weeks. The patient has ahistory of diabetes mellitus and cancer. Query peripheral neuropathy. Patient is currently taking xarelto. EMG & NCV Findings: 1. The left peroneal motor and the right peroneal motor nerve conduction studies showed no response(B Fib) and no response (Poplt). 2. The [...] for the peroneal F wave indicates abnormal L- R latency difference (14.04 ms). 11. All remaining F Wave left vs. right side latency differences were within normal limits. 12. H-reflex studies indicate that the left tibial H-reflex has no response. 13. The right tibial H-reflex has no response. ??? Needle EMG evaluation of the left medial gastrocnemius muscle showed increased insertional activity, long motor unit duration, and few polyphasic potentials. ??? The right lateral gastrocnemius muscle showed increased insertional activity, 1+ Fibs/PSWs, andfew polyphasic potentials. ??? The right medial gastrocnemius and the right vastus medialis muscles showed increased insertional activity and few polyphasic potentials. ??? EMG of all remaining muscles (as indicated [...] (m/s) Left Peroneal Motor (Ext Dig Brev) 36.4 ??C Ankle 3.5 <6.6 3.6 >2.0 9.46 B Fib Ankle 34.0 >42 B Fib NR >2.0 Poplt B Fib 0.0 >42 Poplt NR >2.0 Right Peroneal Motor (Ext Dig Brev) 36.4 ??C Ankle 3.1 <6.6 2.3 >2.0 7.88 B Fib Ankle 34.0 >42 B Fib NR >2.0 Poplt B Fib 0.0 >42 Poplt NR >2.0 Left Peroneal TA Motor (Tib Ant) 36.4 ??C Fib Head 4.3 <6.6 0.3 >5.0 1.86 Poplit Fib Head 0.5 0.0 >42 Poplit 4.8 <5.7 0.9 >5.0 3.82 Right Peroneal TA Motor (Tib Ant) 36.4 ??C Fib Head 1.1 <6.6 2.5 >5.0 18.01 Poplit Fib Head 3.7 0.0 >42 Poplit 4.8 <5.7 2.3 >5.0 14.45 Left Tibial ADH Motor (Abd Valencia Brev) 36.4 ??C Ankle 4.4 <6.6 3.2 >2.0 8.72 Knee Ankle 9.4 32.0 34 >42 Knee 13.8 0.5 >2.0 1.54 Right Tibial ADH Motor Run #1 (Abd Valencia Brev) 36.4 ??C Ankle 3.5 <6.6 2.3 >2.0 7.32 Knee Ankle 32.0 >42 Knee NR >2.0 Right Tibial ADH Motor Run #2 (Abd Valencia Brev) 36.4 ??C Ankle 4.5 <6.6 2.1 >2.0 5.79 Knee Ankle 32.0 >42 Knee NR >2.0 Anti Sensory Summary Table Stim Site NR Onset (ms) Peak (ms) Norm Onset (ms) O-P Amp (??V) Norm O-P Amp Site1 Site2 Delta-0 (ms) Dist (cm) Singh (m/s) Norm Singh (m/s) Left Sup Peron Anti Sensory (Ant Lat Mall) 36.4 ??C 12 cm NR >6.0 12 cm Ant Lat Mall 12.0 Right Sup Peron Anti Sensory (Ant Lat Mall) 36.4 ??C 12 cm 2.7 3.6 0.7 >6.0 12 cm Ant Lat Mall 2.7 12.0 44 Left Sural Anti Sensory (Lat Mall) 36.4 ??C Calf NR <4.0 >5.0 Calf Lat Mall 14.0 Right Sural Anti Sensory (Lat Mall) 36.4 ??C Calf 2.9 3.8 <4.0 1.8 >5.0 Calf Lat Mall 2.9 14.0 48 F Wave Studies NR F-Lat (ms) Lat Norm (ms) L-R F-Lat (ms) L-R Lat Norm Left Peroneal (Mrkrs) (EDB) 36.4 ??C 40.00 <56 14.04 <5.1 Right Peroneal (Mrkrs) (EDB) 36.4 ??C 25.96 <56 14.04 <5.1 Left Tibial (Mrkrs) (Abd Hallucis) 36.4 ??C 40.00 <58 0.00 <5.7 Right Tibial (Mrkrs) (Abd Hallucis) 36.4 ??C 40.00 <58 0.00 <5.7 H Reflex Studies NR H-Lat (ms) Lat Norm (ms) L-R H-Lat (ms) L-R Lat Norm Left Tibial (Soleus) 36.4 ??C NR <34 <2.0 Right Tibial (Soleus) 36.4 ??C NR <34 <2.0 EMG Side Muscle Nerve Root Insrt Fibs Psw Fasc Amp Dur Poly Recrt Comm Left Ext Dig Brev Dp Br Peron L5, S1 Nml Nml Nml 0 Nml Nml 0 Nml Left LatGastroc Tibial S1-2 Nml Nml Nml 0 Nml Nml 0 Nml Left MedGastroc Tibial S1-2 Incr Nml Nml 0 Nml Incr 1+ Nml Left AntTibialis Dp Br Peron L4-5 Nml Nml Nml 0 Nml Nml 0 Nml Left VastusMed Femoral L2-4 Nml Nml Nml 0 Nml Nml 0 Nml Left Upper Lumbar Paraspinals Rami L1-L2 Nml Nml Nml 0 Nml Nml 0 Nml PSM not done due to xarelto Left Middle Lumbar Paraspinals Rami L2-L4 Nml Nml Nml 0 Nml Nml 0 Nml ND xarelto Left Lower LS paraspinal Rami L4-S2 Nml Nml Nml 0 Nml Nml 0 Nml ND Right Ext Dig Brev Dp Br Peron L5, S1 Nml Nml Nml 0 Nml Nml 0 Nml Right LatGastroc Tibial S1-2 Incr Nml 1+ 0 Nml Nml 1+ Nml Right MedGastroc Tibial S1-2 Incr Nml Nml 0 Nml Nml 1+ Nml Right AntTibialis Dp Br Peron L4-5 Nml Nml Nml 0 Nml Nml 0 Nml Right VastusMed Femoral L2-4 Incr Nml Nml 0 Nml Nml 1+ Nml Right Upper Lumbar Paraspinals Rami L1-L2 Nml Nml Nml 0 Nml Nml 0 Nml ND Right Middle Lumbar Paraspinals Rami L2-L4 Nml Nml Nml 0 Nml Nml 0 Nml ND Right Lower LS paraspinal Rami L4-S2 Nml Nml Nml 0 Nml Nml 0 Nml ND Waveforms: [facility] documented in this encounter Plan of Treatment Not on file documented as of this encounter Procedures Procedure Name Priority Date/Time Associated Diagnosis Comments EMG WITH NERVE CONDUCTION STUDY STAT 05/31/2023 11:59 PM [facility] Left leg weakness documented in this encounter Results * EMG WITH NERVE CONDUCTION STUDY (05/31/2023 11:59 PM [facility]) Narrative Stanford Saldana MD - 05/31/2023 11:59 PM [facility] Stanford Saldana MD ? 06/05/2023 ??5:21 PM [facility] [address] [place] [address], [address] [phone] Patient: Karly Marques V #: ??Physician: Stanford Saldana MD Sex: Female ID#: [id number] Ref Phys: Melly Banks APRN-NETTA : [id number] Date: 05/31/2023 Hr Recruiter: Christin Panchal Patient Complaints: The patient is [...] 0 Nml ND Waveforms: ? Melly Banks APRN-SANDING MACHINE BUFFER NEUROLOGY ORDERA BLES documented in this encounter Visit Diagnoses Diagnosis Left leg weakness Other musculoskeletal symptoms referable to limbs documented in this encounter Care Teams Software Solutions Architect Relationship Specialty Start Date End Date Justen Gale MD PCP - General 07/05/21 documented as of this encounter
--- OUTSIDE RECORDS SUMMARY | 2024-04-26 02:31 | XMS_ITS | Encounter Summary ---
Author Organization [facility] Address [address] [place] [address] Care Team Providers Care Talking Books Library Clerk Name Role Phone Justen Gale MD Primary Care Provider [phone] Reason for Visit * Reason Comments Post-Op Post op/wound check Encounter Details Date Type Department Care Team (Late st Contact Info) Description 03/27/2023 10:00 AM COMMERCIAL INTERIOR DESIGNER Office Visit [facility] - Neurosurgery [address] [place] [address] [address] [place] [id number] Maxi Gregg MD [address] [place] [phone] S/P insertion of spinal cord stimulator (Primary [...] and heating? Not hard at all 02/22/2023 [place] [facility] Occup[facility] - Occupational Stress [...] place to sleep or slept in a detention (including now)? No 02/22/2023 Sex and Gender Information Value Date Recorded Sex Assigned at Not on file Gender Identity Not on file Sexual Orientation Not on file documented as of this encounter Last Filed Vital Signs Vital Sign Reading Time Taken Comments Blood Pressure 148/81 03/27/2023 9:55 AM COMMERCIAL INTERIOR DESIGNER Pulse 93 03/27/2023 9:55 AM COMMERCIAL INTERIOR DESIGNER Temperature 36.5 ??C (97.7 ??F) 03/27/2023 9:55 AM CS T Respiratory Rate 18 03/27/2023 9:55 AM COMMERCIAL INTERIOR DESIGNER Oxygen Saturation 97% 03/27/2023 9:55 AM COMMERCIAL INTERIOR DESIGNER Inhaled Oxygen Concentration - - Weight 123.8 kg (273 lb) 03/27/2023 9:55 AM COMMERCIAL INTERIOR DESIGNER Height 154.9 cm (5' 1 ) 03/27/2023 9:55 AM COMMERCIAL INTERIOR DESIGNER Body Mass Index 51.58 03/27/2023 9:55 AM COMMERCIAL INTERIOR DESIGNER documented in this encounter Functional Status Functional [...] this encounter Patient Instructions * Patient Instructions* Angeline Avila RN - 03/27/2023 10:26 AM COMMERCIAL INTERIOR DESIGNER Follow up with Dr. Gregg 3-4 weeks for a wound check OK to resume Anticoagulation medications Continue to monitor for signs of infections:fever,chills,drainage from site,redness and swelling okto go the [facility] For any questions please contact Angeline at [phone] For appointments call Centralized Scheduling at [phone] ERCIAL INTERIOR DESIGNER documented in this encounter Progress Notes * Maxi Gregg MD - 03/27/2023 9:49 AM CST Clinic Note / Progress Note NAME: MOHSEN SALAZAR : 1955 AGE: 67 PROVIDER: Maxi Gregg MD SEX: F DATE: 03/27/2023 I had the pleasure of seeing Mrs. Salazar in the neurosurgery office today. HISTORY OF PRESENT ILLNESS: Mrs. Salazar is a very pleasant 67-year-old lady with a previous history of a spinal stimulation system placed by mt in 2021. The patient later presented with infection, requiring removal of the battery in the right lumbar region. The patient was submitted to a new procedure for placement of a new battery in the left lumbar region an connection with the old system by me on 02/16/2023. After the surgery, the patient was admitted to the hospital with some redness around the wounds without clear signs of infection. The redness seemed to be related to a rash from the dressing. The patient was ultimately discharged home. She later presented with some additional pain and went to the hospital to obtain a CT scan that demonstrated some small fluid collection on the right lumbar region. No collection around the battery. The patient reports in the past few days, the focal pain has improved. The patient had history of asymptomatic bacteriuria and is currently treatment. She denies any fevers. She reports some nausea. Social History Socioeconomic History Marital status: Spouse name: Not on file Number of children: Not on file Years of education: Not on file Highest education level: Not on file Occupational History Not on file Tobacco Use Smoking status: Former Packs/day: .5 Types: Cigarettes Quit date: 12/05/1977 Years since quittin.3 Smokeless tobacco: Never Vaping Use Vaping Use: Never used Substance and Sexual Activity Alcohol use: No Drug use: No Sexual activity: Not on file Other Topics Concern Not on file Social History Narrative Not on file Social Determinants of Health Financial Resource Strain: Low Risk (02/22/2023) Overall Financial Resource Strain (CARDIA) Difficulty of Paying Living Expenses: Not hard at all Food Insecurity: No Food Insecurity (02/22/2023) Hunger Vital Sign Worried About Running Out of Food in the Last Year: Never true Ran Out of Food in the Last Year: Never true Transportation Needs: No Transportation Needs (02/22/2023) PRAPARE - Transportation Lack of Transportation (Medical): No Lack of Transportation (Non-Medical): No Stress: No Stress Concern Present (02/22/2023) [place] [facility] - Occupational Stress Questionnaire Feeling of Stress : Not at all Housing Stability: Low Risk (02/22/2023) Housing Stability Vital Sign Unable to Pay for Housing in the Last Year: No Number of Places Lived in the Last Year: 1 Unstable Housing in the Last Year: No Past Medical History: Diagnosis Date Breast cancer (CMS/HCC) Chest pain DVT (deep venous thrombosis) (CMS/HCC) GERD (gastroesophageal reflux disease) LUL (obstructive sleep apnea) w cpap Other pulmonary embolism without acute cor pulmonale (CMS/HCC) rls Type 2 diabetes mellitus without complications (CMS/HCC) Past Surgical History: Procedure Laterality Date Arthroplasty [...] Cancer Sister Heart Disease Brother Current Medications amitriptyline (ELAVIL) 25 MG tablet at bedtime exemestane (AROMASIN) 25 MG tablet Take 1 (one) tablet by mouth DAILY HumaLOG KwikPen 100 UNIT/ML pen 22 (twenty two) Units 3 times daily before meals hydroCHLOROthiazide (Microzide) 12.5 MG capsule Take 1 (one) capsule by mouth once daily HYDROcodone-acetaminophen (Clovis) 7.5-325 MG tablet Take 1 (one) tablet by mouth every 6 hours as needed for Pain hydrOXYzine HCl (Atarax) 25 MG tablet Take [...] (NARCAN) 4 MG/0.1ML nasal spray as needed nitrofurantoin monohyd macro crystals (Macrobid) 100 MG capsule Take 1 (one) capsule by mouth 2 times daily for 5 days ONETOUCH ULTRA test strip 4 times daily [...] EVERY NIGHT PHYSICAL EXAMINATION: The patient is comfortable and in no acute distress. The wound in the bilateral lumbar region seems to be properly healed. No signs of dehiscence. No phlogistic signs. The patient's redness has significantly improved. REVIEW OF DIAGNOSTIC STUDIES: Previous CT scan of the lumbar spine performed on 03/23/2023 demonstrated a small collection around the site of the previous battery on the right lumbar region. The patient had labs performed on 03/24/2023 which revealed a white blood count of 10.3. MEDICAL DECISION MAKING: I told the patient that she is experiencing a good evolution after the surgical intervention for placement of the new spinal stimulation battery. I recommended her to follow up with me in approximately 6 weeks for a wound check. If she has any worsening in the aspect of thewound or fever, I recommended her to call us earlier. Thanks for allowing us to participate in the care of your patient. Maxi Gregg MD [facility]/[place] .[id number] .[id number] Doc ID: [id number] Voice Job ID: [id number] ERCIAL INTERIOR DESIGNER documented in this encounter Plan of Treatment Not on file documented as of this encounter Visit Diagnoses Diagnosis S/P insertion of spinal cord stimulator- Primary documented in this encounter Care Teams Talking Books Library Clerk Relationship Specialty Start Date End Date Justen Gale MD PCP - General 07/05/21 documented as of this encounter
--- OUTSIDE RECORDS SUMMARY | 2024-04-26 02:31 | XMS_ITS | Encounter Summary ---
Author Organization [facility] Address [address] [place] [address] Care Team Providers Care Manager Telemetry Name Role Phone Justen Gale MD Primary Care Provider [phone] Encounter Details Date Type Department Care Team (Latest Contact Info) Description 03/06/2023 Travel Social History Tobacco Use Types Packs/Day [...] and heating? Not hard at all 02/22/2023 [facility] [place] of Occupat ional Health - Occupational Stress [...] slept in a retirement (including now)? No 02/22/2023 Sex and Gender [...] on filedocumented in this encounter Care Teams Manager Telemetry Relationship Specialty Start Date End Date Justen Gale MD PCP - General 07/05/21 documented as of this encounter
--- OUTSIDE RECORDS SUMMARY | 2024-04-26 02:31 | XMS_ITS | Encounter Summary ---
Author Organization [facility] Address [address] [facility] [place] [address] Care Team Providers Care Viscose Department Worker Name Role Phone Justen Gale MD Primary Care Provider [phone] Reason for Visit * Reason Comments Transitional Care Encounter Details Date Type Department Care Team (Late st Contact Info) Description 03/24/2023 Transitional Care Transitional Care at [address] [phone] Jane Salvador, limehouse worker Social History Tobacco Use Types Packs/Day Years [...] and heating? Not hard at all 02/22/2023 [facility] [place] of Occupat ional Health - Occupational Stress [...] slept in a correction (including now)? No 02/22/2023 Sex and Gender [...] encounter Miscellaneous Notes * Telephone Encounter - Jane Salvador RN - 03/24/2023 12:39 PM CST RN 48 hour post discharge follow-up contact by telephone: Patient with recent IP discharge from [facility] on 03/23/23. This RN contacted Karly Marques by telephone ([phone]) to complete 48 hour post-discharge follow-up contact for [facility] appointment. 1) How are you feeling? Patient states she is feeling ok 2) How is your mobility? Patients states she isn't moving as well as she would like 3) New concerns or problems? No 4) Have you had to go the ER for any reason? No 5) Any questions about your discharge diagnosis and instructions? No 6) Do you have a follow up appointment made? Confirmed [facility] appt on [facility] for 03/30/23 @ 900. Instructed on location, parking and to bring current medications. Patient may call for a wheelchair. 7) Do you currently have home health, any questions about home care? No 8) Have you filled all of your RX's? is picking up abx today 9) Any questions or concerns that we can help you with? No Karly Marques denied any questions related to diet, medications, or condition at this time. Patient was encouraged to call this grant writer with questions, concerns, barriers to care, and/or additional resources if needed. Patient verbalized understanding and agreement with plan. This RN will continueto provide post-discharge monitoring until patient completes [facility] clinic follow up. Call Duration: 5 min Jane Salvador RN, BSN Repairer [employer]ished [employer], [facility] Office: [phone] 03/24/2023 AIR DIRECTOR documented in this encounter Plan of Treatment Not on file documented as of this encounter Visit Diagnoses Not on filedocumented in this encounter Care Teams Viscose Department Worker Relationship Specialty Start Date End Date uJsten Gale MD PCP - General 07/05/21 documented as of this encounter
--- OUTSIDE RECORDS SUMMARY | 2024-04-26 02:31 | XMS_ITS | Encounter Summary ---
Author Organization [facility] Address [address] [place] [address] Care Team Providers Care [place] Gold Attendant Name Role Phone Justen Gale MD Primary Care Provider [phone] Encounter Details Date Type Department Care Team (Latest Contact Info) Description 05/28/2023 Travel Social History Tobacco Use Types Packs/Day [...] medical care, and heating? Somewhat hard 05/16/2023 [facility] [place] of Occupat ional Health - Occupational Stress [...] place to sleep or slept in a nursing home (including now)? No 05/16/2023 Sex and [...] on filedocumented in this encounter Care Teams [place] Gold Attendant Relationship Specialty Start Date End Date Justen Gale MD PCP - General 07/05/21 documented as of this encounter
--- OUTSIDE RECORDS SUMMARY | 2024-04-26 02:31 | XMS_ITS | Encounter Summary ---
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 Name Role Phone Justen Gale MD Primary Care Provider [phone] Reason for Referral * Consultation (Urgent) - Closed Specialty Diagnoses / Procedures Referred By Elyssa benavides Referred To Contact Transitional Care Diagnoses Estrella Prescott MD [address] [place] [address] [facility] [address] [place] [phone] Referral ID Status Reason Start Date Expiration Date V isits Requested Visits Authorized [id number] Closed Specialty Services Required 03/22/2023 03/21/2024 1 1 ICATION TECHNICIAN Reason for Visit * Reason Comments Pain Back BIBself ambulatory t o ED. Pt reports having back surgery x1 month ago. Pt states I've had a lot of problems since this story including nausea, itching around incision site on back and continued back pain. Pt is also concerned she has a UTI d/t frequent urination. Denies dysuria, but states when she has a UTI she typically doesn't have pain with urination. * Auth/Cert (Routine) Specialty Diagnoses / Procedures Referred By Elyssa benavides Referred To Contact Referral ID Status Reason Start Date Expiration Date Visits Re quested Visits Authorized [id number] 1 1 Encounter Details Date Type Department Care Team (Late st Contact Info) Description 03/19/2023 9:38 PM APPLICATION TECHNICIAN - 03/23/2023 6:14 PM APPLICATION TECHNICIAN Hospital Encounter [facility]ORT STAY UNIT [address] [place] [phone] Coco Harris MD [facility] [place] [address] Estrella Dunbar MD [address] [place] [address] Rosa Torres MD [address] [place] [address] Emergency Medicine Discharge Disposition: Home or Self [...] and heating? Not hard at all 02/22/2023 [employer] [facility] - Occupational Stress [...] Sign Reading Time Taken Comments Blood Pressure 141/86 03/23/2023 3:57 PM APPLICATION TECHNICIAN Pulse 85 03/23/2023 3:57 PM APPLICATION TECHNICIAN Temperature 36.4 ??C (97.6 ??F) 03/23/2023 3:57 PM CS T Respiratory Rate 18 03/23/2023 3:57 PM APPLICATION TECHNICIAN Oxygen Saturation 93% 03/23/2023 3:57 PM APPLICATION TECHNICIAN Inhaled Oxygen Concentration 21% 03/22/2023 5 :26 AM APPLICATION TECHNICIAN Weight 123.8 kg (273 lb) 03/21/2023 12:04 AM APPLICATION TECHNICIAN Height 154.9 cm (5' 1 ) 03/21/2023 12:04 AM APPLICATION TECHNICIAN Body Mass Index 51.58 03/21/2023 12:04 AM APPLICATION TECHNICIAN documented in this encounter Functional Status Functional [...] as of this encounter Discharge Summaries * Estrella Dunbar MD - 03/23/2023 5:38 PM CST Images from the original note were not included. [facility] Physician Discharge Summary Patient ID: Karly Marques [id number] 67 year old 1955 Admit date: 03/19/2023 Discharge date and time: 03/23/2023 Admitting Physician: Dr. Estrella Dunbar MD Discharge Physician: Dr. Estrella Dunbar MD Present on Admission: Acute on Chronic Back Pain s/p Recent Spinal Stimulator Replacement, Increased Urinary Frequency, Anxiety, Depression, HTN, T2DM, PE on AC, RLS, Breast Cancer, T2DM Discharge Diagnoses: Acute on Chronic Back Pain s/p Recent Spinal Stimulator Replacement, E. coli UTI, Anxiety, Depression, HTN, T2DM, PE on AC, RLS, Breast Cancer, T2DM Admission Condition: stable Discharged Condition: fair Indication for Admission: Acute on Chronic Back Pain s/p Recent Spinal Stimulator Replacement, Increased Urinary Frequency Hospital Course: Karly Marques is a 67 year old female with past medical history of Chronic Back Pain s/p RecentSpinal Stimulator Replacement, Increased Urinary Frequency, Anxiety, Depression, HTN, T2DM, PE on AC, RLS, Breast Cancer, T2DM who presented to [facility] on 03/19/2023 for acute on chronic back pain and increased urinary frequency. Evaluated by NSGY and deemed not to need acute intervention; admitted to medicine for pain control. UA with c/f UTI; given symptoms at presentation started on Nitrofurantoinafter discussion with patient given numerous listed allergies to antibiotics. Condition improved and prepared to DC but developed slight discharge from left surgical incision; NSGY re-evaluated and recommended CT which noted mild increase in fat stranding and soft tissue density in the fat on the right side at L3-L4. Formal read of CT noting findings could suggest hematoma vs infection; discussedwith NSGY who did not believe that acute antibiotics were needed at this time and recommended patient return as outpatient on Monday03/27/2023 for aspiration and outpatient management. Lengthy discussion at bedside with patient regarding this and that NSGY did not feel she had any additional in-patient needs at this time from their perspective; given that surgical site was not noted to change significantly during admission and that she had no active signs of sepsis or active infection, was deemed safe to discharge with review of symptoms that should prompt return to the hospital. Patient understanding and accepting of this plan; discharged with prescription for Nitrofurantoin and plans to follow-up with both [facility]GY and [facility] to continue to closely monitor symptoms as outpatient. Also instructed to hold methenamine and oxybutynin until completion of antibiotics for UTI, and to hold Xarelto until after NSGY procedure on 03/27/2023. Consults: Neurosurgery Significant Diagnostic Studies: See hospital course Discharge Exam: Filed Vitals: 03/23/23 0256 03/23/23 0719 03/23/23 1112 03/23/23 1557 BP: 118/80 125/85 133/81 141/86 Pulse: 56 86 86 85 Resp: 18 18 18 Temp: 97.7 ??F (36.5 ??C) 98.4 ??F (36.9 ??C) 98.3 ??F (36.8 ??C) 97.6 ??F (36.4 ??C) TempSrc: Axillary Oral Oral Oral SpO2: 95% 93% 97% 93% Weight: Height: General: NAD. HENT: NC/AT Eyes: Anicteric. Non-injected. Chest: CTAB. No crackles or wheezes. No increased work of breathing. Cardiovascular: RRR. No murmurs, rubs, or gallops Abdomen: Soft. NT/ND. Normal BS+. Extremities: No signs of clubbing, cyanosis, or edema. Skin: Warm. Dry. Bilateral surgical incisions at the buttock; left slightly more dry/red than rightbut without significant change from admission, without warmth or tenderness. Neurological: Alert; conversational and follows commands. Moves all extremities spontaneously without issue. No focal deficits. Psych: Appropriate mood and affect Disposition: Home Time Spent Coordinating Discharge: 38 minutes Patient Instructions: Medication List START taking these medications nitrofurantoin monohyd macro crystals 100 MG capsule Commonly known as: Macrobid Take 1 (one) capsule by mouth 2 times daily for 5 days CHANGE how you take these medications hydrOXYzine HCl 25 MG tablet Commonly known as: Atarax Take 1 (one) tablet by mouth 3 times daily as needed for Itching What changed: ?? medication strength ?? how much to take ?? when to take this ?? reasons to take this CONTINUE taking these medications amitriptyline 25 MG tablet Commonly known as: Elavil B-D ULTRAFINE III SHORT PEN 31G X 8 MM needle Generic drug: insulin pen needle 4 times daily exemestane 25 MG tablet Commonly known as: Aromasin Take 1 (one) tablet by mouth DAILY HumaLOG KwikPen 100 UNIT/ML pen Generic drug: insulin lispro hydroCHLOROthiazide 12.5 MG capsule Commonly known as: Microzide HYDROcodone-acetaminophen 7.5-325 MG tablet Commonly known as: Auburn Lantus SoloStar pen Generic drug: insulin glargine methenamine hippurate 1 GM tablet Commonly known as: Hiprex TAKE 1 TABLET BY MOUTH TWICE DAILY methocarbamol 500 MG tablet Commonly known as: Robaxin Take 1 (one) tablet by mouth every 6 hours as needed for Muscle Spasms naloxone HCl 4 MG/0.1ML nasal spray Commonly known as: Narcan ONETOUCH DELICA PLUS 33G EXTRA FINE LANCET OneTouch Ultra test strip Generic drug: blood glucose oxyBUTYnin CR 24hr 15 MG tablet Commonly known as: Ditropan XL Take 1 (one) tablet by mouth once daily rivaroxaban 20 MG tablet Commonly known as: Xarelto rOPINIRole 5 MG tablet Commonly known as: Requip STOP taking these medications losartan 50 MG tablet Commonly known as: Cozaar Where to Get Your Medications These medications were sent to [facility] - [address] [place] [id number] [place] [address] ?? hydrOXYzine HCl 25 MG tablet ?? nitrofurantoin monohyd macro crystals 100 MG capsule Follow-up Information Maxi Gregg MD . Specialty: Neurological Surgery Contact information: [address] [place] [address] OF NEUROSURGERY [facility] [phone] Discharge Instructions DISCHARGE INSTRUCTIONS? A MESSAGE FROM YOUR DOCTORS:?? Dear Karly Marques,? You were admitted for worsened pain and a possible urinary tract infection. You were treated with pain medicine and an antibiotic. You were seen by the neurosurgery team who took a look at your woundand did not believe it was infected. You were discharged with a prescription for antibiotic pills for a urinary tract infection and plans to follow up with the neurosurgeons in clinic. A referral wasalso placed for our hospital discharge clinic to follow up with your and check on your symptoms after you discharge.? The neurosurgeons plan to see you on Monday to take a sample of some fluid in your back found on a CT scan on Monday03/27/2023; please do not taking your blood thinning medication (R ivaroxaban aka Xarelto) until after you have had this procedure. Do not hesitate to call the neurosurgery team if you have concerns regarding your pain control or increased drainage from your back, and do not hesitate to come back to the ER for evaluation if you develop these or other concerning symptoms such as fevers, chills, lightheadedness, etc. ? 1. DISCHARGE MEDICATIONS:? Below were changes made to your home medications:? START TAKING (and why)? -?Nitrofurantoin 100mg twice daily until gone for infection - Based on your pain, you may take an extra 325mg tablet of Tylenol up to every four hours as needed in addition to the Auburn you take every 6 hours; please make sure that the dose of Acetaminophen (aka Tylenol) you take in a single day is less than 4000mg CHANGE (dose or amount was changed and why) - Hydroxyzine was increased to 25mg three times daily as needed for itching STOP TAKING (and why)? -?Losartan was removed from your medication list as you indicated you were no longer taking it HOLD (discuss with PCP or specialist before restarting. Do not take until further instruction from a doctor)? - Hold on taking your Rivaroxaban (aka Xarelto) until after your procedure with the neurosurgeons on Monday03/27/2023 - Hold on taking your Oxybutynin and Methenamine until after you have completed your antibiotic course ? Other than the changes stated above, continue all other home medications as prescribed.? Please discuss these changes with your Primary Care Physician (or your specialist doctor).?? If you have any questions about your medications, please ask the pharmacy when you greens picker your prescription. You may also call your primary provider if you still have questions.? ? 2. FOLLOW-UP:? A) Below are your scheduled appointments? Future Appointments Monday March 27, 2023 10:00 AM (Arrive by 9:45 AM) Appointment with Maxi Gregg at [facility] ([phone]) [address] [facility] March 9:00 AM Appointment with [facility] at Transitional Care at [facility] ([phone]) [address] [facility] [address] Monday April 03, 2023 1:15 PM (Arrive by 1:00 PM) Appointment with Maxi Gregg at [facility] ([phone]) [address] [facility] [address] [facility] As directed Outpatient Referral: Ref to [facility] Transitional Care ? -If you are not going home but to Rehab or Longterm, ask the providers there about going to future appointments.?? ? B) It is essential that you keep all your follow-up appointments and go to your doctors??? appointments as scheduled. If a follow-up with your primary care provider has not been scheduled, you need to schedule an appointment to follow- up on your hospitalization within 1-2 weeks. If there is a conflict, please call the clinic ahead of time and reschedule the appointment.? ? ? 3. ?Lifestyle Modifications? -It is very important for your health to AVOID/STOP smoking cigarettes. Please talk to your primarycare physician if you need help quitting smoking.? -Please include plenty of fruits and vegetables in your diet and maintain a healthy diet.? -Discuss an exercise program with your primary care physician. It is recommended that most individuals should exercise for 20 minutes at least 5 times per week.? Please call your Primary Care Provider, report to the nearest emergency room or call 911 if you develop new or concerning symptoms, including, but not limited to, fever, chest pain, palpitations, numbness, worsening confusion, weakness in arms/legs, dizziness, or worsening shortness of breath.? Thank you for allowing us to participate in your care!? ? Internal Medicine Team? [facility] [address]? [place] [address]? You are being referred to the [facility] for follow up after your hospital stay. Location: The clinic is located on the second floor of [facility] at [facility]. The entrance can be found off [facility] and parking is available across the street in the parking garage. See the map below. Address: [facility] at [address], Second Floor, [address] [place] [address] Hours: Monday to Monday 8:00 AM to 4:00 PM The [facility] provides a one-time appointment with a physician or advanced practitioner within 14 days after leaving the hospital. The [facility] works to support patient care transitions, recovery, and reduced risk of hospitalreadmission and additional emergency department visits. All patients receive the best possible carefor their health needs and are supported in their transition from hospital discharge to on-going primary and specialty care. The [facility] visit includes: ? Check-up on your overall health ? Understanding what medications you???re taking ? Access and help to afford your medications ? Possible tests and blood work ? Verification of follow-up appointments For your visit: ? Bring a list of questions about your recent hospitalization and treatment plan. ? Bring your discharge paperwork and all your current medications with you to the visit. ? Arrive 15 minutes before your appointment and allow at least 60 minutes for your appointment. ? Bring your picture ID and insurance card if you have it Frequently Asked Questions: How do I make my appointment? After your provider makes the referral, the clinic staff will call you to schedule it. It is important that we have your correct phone number on file before you discharge. In some instances, the appointment may be made just before you discharge. If you discharge from the hospital and no one has contacted you in 1-2 business days, please call [phone] and the staff will assist you. Where do I park? Free parking is available in the [employer] [facility] located across the street from [facility]. When you arrive at the garage, you will get a ticket which you will have validated at the front desk specialist on theFirst Floor of [facility]. What if I do not have insurance? What is the cost? There is no copay required for a [facility] appointment. If you do not have insurance, our clinic [employer], may be able to refer you to a service that can help you get insurance. What if I already have a primary care appointment soon after my hospital discharge? If you already have an upcoming primary care appointment, then you may not need a [facility] appointment. You can call our clinic to discuss with one of our staff. Is this a walk-in clinic? No, you must have a referral from your hospital provider to have an appointment. What if I need to reschedule or cancel my appointment? Please call [phone] and the staff will assist you. If you need to cancel, we ask that you call24 hours before your appointment. What if I need transportation assistance? When our team schedules your appointment, they will ask if you need transportation assistance and can help you coordinate that. Thank you! We look forward to seeing you at the [facility]. ICATION TECHNICIAN documented in this encounter Discharge Instructions * Discharge Instructions* Estrella Dunbar MD - 03/22/2023 12:31 PM APPLICATION TECHNICIAN Images from the original note were not included. DISCHARGE INSTRUCTIONS? A MESSAGE FROM YOUR DOCTORS:?? Dear Karly Marques,? You were admitted for worsened pain and a possible urinary tract infection. You were treated with pain medicine and an antibiotic. You were seen by the neurosurgery team who took a look at your woundand did not believe it was infected. You were discharged with a prescription for antibiotic pills for a urinary tract infection and plans to follow up with the neurosurgeons in clinic. A referral wasalso placed for our hospital discharge clinic to follow up with your and check on your symptoms after you discharge.? The neurosurgeons plan to see you on Monday to take a sample of some fluid in your back found on a CT scan on Monday03/27/2023; please do not taking your blood thinning medication (R ivaroxaban aka Xarelto) until after you have had this procedure. Do not hesitate to call the neurosurgery team if you have concerns regarding your pain control or increased drainage from your back, and do not hesitate to come back to the ER for evaluation if you develop these or other concerning symptoms such as fevers, chills, lightheadedness, etc. ? DISCHARGE MEDICATIONS:? Below were changes made to your home medications:? START TAKING (and why)? -?Nitrofurantoin 100mg twice daily until gone for infection - Based on your pain, you may take an extra 325mg tablet of Tylenol up to every four hours as needed in addition to the Auburn you take every 6 hours; please make sure that the dose of Acetaminophen (aka Tylenol) you take in a single day is less than 4000mg CHANGE (dose or amount was changed and why) - Hydroxyzine was increased to 25mg three times daily as needed for itching STOP TAKING (and why)? -?Losartan was removed from your medication list as you indicated you were no longer taking it HOLD (discuss with PCP or specialist before restarting. Do not take until further instruction from a doctor)? - Hold on taking your Rivaroxaban (aka Xarelto) until after your procedure with the neurosurgeons on Monday03/27/2023 - Hold on taking your Oxybutynin and Methenamine until after you have completed your antibiotic course ? Other than the changes stated above, continue all other home medications as prescribed.? Please discuss these changes with your Primary Care Physician (or your specialist doctor).?? If you have any questions about your medications, please ask the pharmacy when you greens picker your prescription. You may also call your primary provider if you still have questions.? ? 2. FOLLOW-UP:? A) Below are your scheduled appointments? Future Appointments Monday March 27, 2023 10:00 AM (Arrive by 9:45 AM) Appointment with Maxi Gregg at [facility] ([phone]) [address] [facility] [address] [facility] March 9:00 AM Appointment with [facility] at Transitional Care at [facility] ([phone]) [address] [facility] [address] Monday April 03, 2023 1:15 PM (Arrive by 1:00 PM) Appointment with Maxi Gregg at [facility] ([phone]) [address] [facility] [address] [facility] As directed Outpatient Referral: Ref to [facility] Transitional Care ? -If you are not going home but to Rehab or Longterm, ask the providers there about going to future appointments.?? ? B) It is essential that you keep all your follow-up appointments and go to your doctors??? appointments as scheduled. If a follow-up with your primary care provider has not been scheduled, you need to schedule an appointment to follow- up on your hospitalization within 1-2 weeks. If there is a conflict, please call the clinic ahead of time and reschedule the appointment.? ? ? 3. ?Lifestyle Modifications? -It is very important for your health to AVOID/STOP smoking cigarettes. Please talk to your primarycare physician if you need help quitting smoking.? -Please include plenty of fruits and vegetables in your diet and maintain a healthy diet.? -Discuss an exercise program with your primary care physician. It is recommended that most individuals should exercise for 20 minutes at least 5 times per week.? Please call your Primary Care Provider, report to the nearest emergency room or call 911 if you develop new or concerning symptoms, including, but not limited to, fever, chest pain, palpitations, numbness, worsening confusion, weakness in arms/legs, dizziness, or worsening shortness of breath.? Thank you for allowing us to participate in your care!? ? Internal Medicine Team? [facility] [address]? [place] [address]? You are being referred to the [facility] for follow up after your hospital stay. Location: The clinic is located on the second floor of [facility] at [facility]. The entrance can be found off [facility] and parking is available across the street in the parking garage. See the map below. Address: [facility] at [address], Second Floor, [address] [place] [address] Hours: Monday to Monday 8:00 AM to 4:00 PM The [facility] provides a one-time appointment with a physician or advanced practitioner within 14 days after leaving the hospital. The [facility] works to support patient care transitions, recovery, and reduced risk of hospitalreadmission and additional emergency department visits. All patients receive the best possible carefor their health needs and are supported in their transition from hospital discharge to on-going primary and specialty care. The [facility] visit includes: Check-up on your overall health Understanding what medications you???re taking Access and help to afford your medications Possible tests and blood work Verification of follow-up appointments For your visit: Bring a list of questions about your recent hospitalization and treatment plan. Bring your discharge paperwork and all your current medications with you to the visit. Arrive 15 minutes before your appointment and allow at least 60 minutes for your appointment. Bring your picture ID and insurance card if you have it Frequently Asked Questions: How do I make my appointment? After your provider makes the referral, the clinic staff will call you to schedule it. It is important that we have your correct phone number on file before you discharge. In some instances, the appointment may be made just before you discharge. If you discharge from the hospital and no one has contacted you in 1-2 business days, please call [phone] and the staff will assist you. Where do I park? Free parking is available in the [employer] [facility] located across the street from [facility]. When you arrive at the garage, you will get a ticket which you will have validated at the front desk specialist on theFirst Floor of [facility]. What if I do not have insurance? What is the cost? There is no copay required for a [facility] appointment. If you do not have insurance, our clinic [employer], may be able to refer you to a service that can help you get insurance. What if I already have a primary care appointment soon after my hospital discharge? If you already have an upcoming primary care appointment, then you may not need a [facility] appointment. You can call our clinic to discuss with one of our staff. Is this a walk-in clinic? No, you must have a referral from your hospital provider to have an appointment. What if I need to reschedule or cancel my appointment? Please call [phone] and the staff will assist you. If you need to cancel, we ask that you call24 hours before your appointment. What if I need transportation assistance? When our team schedules your appointment, they will ask if you need transportation assistance and can help you coordinate that. Thank you! We look forward to seeing you at the [facility]. ICATION TECHNICIAN documented in this encounter Medications at Time [...] SoloStar pen 40 (forty) Units once 02/25/2022 AeromotTOUCH ULTRA test strip 4 times daily 02/01/2021 [...] capsule by mouth once daily 07/17/2022 05/19/2023 HYDROcodone-acetaminop hen ([place]) 10-325 MG tablet Take 1 (one) tablet by mouth every 8 hours as needed for Pain Takes 3-4 times a day 05/20/2023 methenamine hippurate (Hiprex) 1 GM tablet TAKE 1 TABLET BY MOUTH TWICE DAILY 60 tablet 3 12/14/2022 07/12/2023 methocarbamol (Robaxin) 500 MG tablet Take 1 (one) tablet by mouth every 6 hours as needed for Muscle Spasms 60 tablet 02/16/2023 05/19/2023 naloxone HCl (NARCAN) 4 MG/0.1ML nasal spray as needed 05/13/202104/20 nitrofurantoin monohyd macro crystals (Macrobid) 100 MG capsule Take 1 (one) capsule by mouth 2 times daily for 5 days 10 capsule 03/22/2023 03/27/2023 oxyBUTYnin CR 24hr (Ditropan XL) 15 MG tablet Take 1 (one) tablet by mouth once daily 90 tablet 4 08/15/2022 03/08/2024 documented as of this encounter Progress Notes * Jennifer Solo - 03/23/2023 12:31 PM CST Discharge Mathematical Sciences Professor received request from to arrange follow-up appointment for Patientwith Neurosurgery. This curriculum writer called [phone] and spoke with Edmond. Mathematical Sciences Professor was able to obtain follow-up appointment for Patient with on 04/03/2023 at 1:00 pm. No further follow-up needs from medical appointment scheduler indicated at this time. Jennifer Solo, Discharge Mathematical Sciences Professor 03/23/2023 ICATION TECHNICIAN * Sammy Cobb MD - 03/23/2023 10:54 AM CST NEUROSURGERY PROGRESS NOTE At the current time, Karly Marques does not require any further inpatient neurosurgical care. If indicated by primary team, from a neurosurgical perspective it is safe to start heparin SubQ for VTE prophylaxis. If patient is still inptaient on 03/30, please call neurosurgery for a wound check. Please have the patient follow up with Dr. Gregg on Tuesday 03/27. Will plan to aspirate battery pocket at that time. Please hold eliquis until follow up. Sammy Cobb MD 03/23/2023 10:54 AM ICATION TECHNICIAN * Jos Duran RN - 03/23/2023 10:21 AM CST Problem: Pain/Discomfort Goal: Patient exhibits reduced pain/discomfort as evidenced by pain scores Outcome: Progressing Problem: Pain/Discomfort Goal: Patient uses pharmacological and non-pharmacological pain management strategies. Outcome: Progressing Problem: Pain/Discomfort Goal: Patient verbalizes acceptable level of pain relief and ability to engage in desired activity. Outcome: Progressing ICATION TECHNICIAN * Corby Ritchie APRN-NETTA - 03/23/2023 4:17 AM CST Neurosurgery Progress Note Karly Sykesrangel 03/23/23 Hospital Day: 4 Subjective: Patient is a 67 year old female with PMH??DVT/PE (on Xarelto), GERD, DM,??LUL, recurrent UTIs, spinal stimulator??who presented??for persistent back pain and wound redness on 03/19/2023 now with complaints of drainage.?Patient's stimulator replaced on 02/16/23. She??presented one??week later with rash over the wound??that was thought to be a tape rash. She was discharged on oral antibiotics that she has not been taking. She was last seen in clinic on 03/07 and noted to be doing well. Currently, she states her symptoms have not improved. Neurologically, she is at baseline full strength. Both incisions have overlying erythema, improved compared to photos from last admission. Recent/Significant Events: NAEO Objective: T: 97.7 ??F (36.5 ??C) [Temp Min: 97.7 ??F (36.5 ??C) Max: 98.7 ??F (37.1 ??C)] BP: 118/80[BP Min: 117/78 Max: 149/85] MAP: 92[MAP (mmHg) Min: 89 Max: 105] HR: 56[Pulse Min: 56 Max: 84] RR: 18[Resp Min: 17 Max: 18] Sat: 95 %[SpO2 Min: 93 % Max: 97 %] ICP: [No data recorded] EVD: n/a Input/Output: 03/22 0701 - 03/23 0700 In: 1580 [P.O.:1580] Out: - PAIGE/Other Drain: n/a Respiratory: RA/CPAP at night PEEP/CPAP: 5 cm H20 Labs: Recent Labs Component Name 03/22/23 1027 WBC 9.1 HGB 13.2 HCT 41.5 PLTCOUNT 290 Recent Labs Component Name 03/22/23 1028 NA 137 POTASSIUM 4.2 CO2 27 BUN 14 CREATININE 0.89 CALCIUM 9.8 GLUCOSE 244* Recent Labs Component Name 02/21/23 1830 02/16/23 1220 02/06/23 1330 INR 1.0 - 2.5* PTT - - 35.4 - = values in this interval not displayed. Imaging: CT Lumbar Spine ordered Diet: DIET DIABETIC CONSIST CARB Fluids: Per primary team MEDICATIONS FOR CURRENT ENCOUNTER: ?? SCHEDULED MEDICATIONS: ?? 0.9% NaCl injection 3 mL, Intracatheter, q8h ?? acetaminophen (Tylenol) tablet 1,000 mg, Oral, TID ?? amitriptyline (Elavil) tablet 25 mg, Oral, AT BEDTIME ?? diphenhydrAMINE (Benadryl) capsule 25 mg, Oral, Once ?? exemestane (Aromasin) tablet 25 mg, Oral, QDAY ?? hydroCHLOROthiazide (Hydrodiuril) tablet 12.5 mg, Oral, QDAY ?? hydrocortisone (Hytone) 1 % cream, Topical, BID ?? insulin aspart (NovoLOG) pen 0-12 Units, Subcutaneous, TID WC ?? insulin aspart (NovoLOG) pen 8 Units, Subcutaneous, TID WC ?? insulin glargine (Lantus) pen 5 Units, Subcutaneous, AT BEDTIME ?? nitrofurantoin monohyd macro crystals (Macrobid) capsule 100 mg, Oral, BID ?? polyethylene glycol 3350 (Miralax) packet 17 g, Oral, QDAY ?? rOPINIRole (Requip) tablet 5 mg, Oral, AT BEDTIME ?? [COMPLETED] hydrOXYzine HCl (Atarax) tablet 25 mg, Oral, Once ?? CONTINUOUS MEDICATIONS: ?? PRN MEDICATIONS: ?? Or ?? Or ?? Or ?? Or ?? Or ?? Or ?? 0.9% NaCl injection 1-10 mL, Intracatheter, PRN ?? dextrose 10 % IV bolus, Intravenous, PRN ?? dextrose 10 % IV bolus, Intravenous, PRN ?? diphenhydrAMINE (Benadryl) capsule 50 mg, Oral, q6h PRN ?? glucagon (Glucagen) injection 1 mg, Subcutaneous, PRN ?? glucose (Diabetic Use) (Dex4 Glucose) oral liquid, Oral, PRN ?? glucose (Diabetic Use) oral gel, Oral, PRN ?? glucose chew tablet 4 tablet, Oral, PRN ?? HYDROmorphone (Dilaudid) injection 0.4 mg, Intravenous, q4h PRN ?? hydrOXYzine HCl (Atarax) tablet 25 mg, Oral, TID PRN ?? methocarbamol (Robaxin) tablet 500 mg, Oral, q6h PRN ?? ondansetron (disintegrating) (Zofran ODT) tablet 4 mg, Oral, q6h PRN ?? ondansetron (Zofran) injection 4 mg, Intravenous, q6h PRN ?? oxyCODONE (immediate release) (Roxicodone) tablet 10 mg, Oral, q4h PRN ?? oxyCODONE (immediate release) (Roxicodone) tablet 5 mg, Oral, q4h PRN Neuro: alert, oriented x3, follows commands in all 4 extremities Motor: ?? Hip Flexor Quad Hamstring Tib Ant Gastroc EHL Right?? 5/5 5/5 5/5 5/5 5/5 5/5 Left?? 4+/5 4+/5?? 4+/5?? 5/5?? 5/5?? 5/5? Pain limited in LLE Assessment: 67 year old female with PMH??DVT/PE (on Xarelto), GERD, DM,??LUL, recurrent UTIs, spinal stimulator??who presented??for persistent back pain and wound redness on 03/19/2023 now with complaints of drainage.?Patient's stimulator replaced on 02/16/23. She??presented one??week later with rash over the wound??that was thought to be a tape rash. She was discharged on oral antibiotics that she has not been taking. She was last seen in clinic on 03/07 and noted to be doing well. Currently, she states her symptoms have not improved. Neurologically, she is at baseline full strength. Both incisions have overlying erythema, improved compared to photos from last admission. Plan: - Continue to monitor neurologic exam q4h - Follow CT Lumbar Spine WWO Contrast -Further recommendations pending review of imaging by attending - Recommend Infectious Disease c/s for antibiotic treatment recommendations - Recommend holding anticoagulation/antiplatelet medications at this time Corby Ritchie APRN-MANAGER MSW 4:17 AM 03/23/23 To reach Neurosurgery for questions: From 7am to 5pm please call the [facility] for Neurosurgery From 5pm to 7am please refer to ALVAR[facility] ([employer]) to reach the resident insulation board coater operator (changes daily) Secure chat can be used for non-urgent issues only, please expect a reasonable amount of time for responses ICATION TECHNICIAN * Harry Spears RN - 03/22/2023 7:45 PM CST Problem: Pain/Discomfort Goal: Patient exhibits reduced pain/discomfort as evidenced by pain scores Outcome: Progressing Goal: Patient uses pharmacological and non-pharmacological pain management strategies. Outcome: Progressing Goal: Patient verbalizes acceptable level of pain relief and ability to engage in desired activity. Outcome: Progressing ICATION TECHNICIAN * Estrella Dunbar MD - 03/22/2023 5:58 PM CST Internal Medicine Progress Note 03/22/2023 @ 5:58 PM Admit Date: 03/19/2023 - Length of Stay 0 Day(s) Subjective: - Pain controlled - Cleared by PT/OT for home - Surgical site with some drainage overnight although minimal; called NSGY multiple times today forevaluation prior to discharge, does not appear significantly different compared to prior exams Objective: Temp: [97.8 ??F (36.6 ??C)-98.4 ??F (36.9 ??C)] 98.3 ??F (36.8 ??C) Pulse: [72-93] 72 Resp: [17-18] 18 BP: (117-152)/(71-89) 149/85 O2 %: [21 %] 21 % Physical Exam General: NAD. Sitting upright comfortably at edge of bed HENT: NC/AT Eyes: Anicteric. Non-injected. Chest: CTAB. No crackles or wheezes. No increased work of breathing. Cardiovascular: RRR. No murmurs, rubs, or gallops Abdomen: Soft. NT/ND. Normal BS+. Extremities: No signs of clubbing, cyanosis, or edema. Skin: Warm. Dry. Left buttock surgical incision with slight dry/redness but does not appear infectious. Neurological: Alert; conversational and follows commands. Moves all extremities spontaneously without issue. No focal deficits. Psych: Appropriate mood and affect Data reviewed including pertinent labs, imaging, diagnostics. Imaging: No results found. Assessment/Plan: Principal Problem: Chronic left-sided low back pain, unspecified whether sciatica present Active Problems: Anxiety and depression Chronic anticoagulation Essential hypertension Type 2 diabetes mellitus without complication (CMS/HCC) Multiple subsegmental pulmonary emboli without acute cor pulmonale (CMS/HCC) Weakness S/P placement of nerve stimulator Acute cystitis without hematuria Breast cancer (CMS/HCC) Restless legs syndrome (RLS) Rash Continue current pain regimen. Cleared for discharge by PT/OT. Discharge pending evaluation of surgical site by NSGY; orders placed. Nutrition: Diabetic diet DVT Prophylaxis: Home Xarelto Code: Full Dispo: Pending PT/OT recs; possible DC in next day or two The best way to reach me is through Secure Chat. Estrella Dunbar MD 03/22/2023 ICATION TECHNICIAN * Rojelio Hidalgo CPhT - 03/22/2023 2:58 PM CST MEDICATION TO BEDSIDE DELIVERY: COMPLETE Medication to Bedside delivery was completed for Karly Marques. ??? A total of 2 prescriptions were delivered to the patient for discharge. ??? Medications were given to NURSE (blanquita) ??? This delivery included a controlled substance: NO ??? This delivery included medication that should be stored in the fridge: NO Thank you for allowing the outpatient pharmacy to participate in the care of Karly Marques. If you have any questions, please contact the outpatient pharmacy at [phone]. Rojelio Hidalgo CPhT [facility] at [address], [address] Floor [place], [place] [address] Hours of Operation Monday - Monday: 8:00am to 6:00pm Monday: 9:00am to 1:00pm Epic: [facility] *Ensure the patient and clinic's nearby ZIP codes box is unchecked* * Yesi Villanueva RN - 03/22/2023 1:21 PM CST [facility] received a referral from Estrella Dunbar MD to schedule an appointment following hospital discharge. The patient is scheduled to be seen on March at 0900. Yesi Mariee RN Nurse Secondary Special Education Teacher, [facility] 03/22/2023 Clinic: [phone] Office: [phone] ICATION TECHNICIAN * Isamar Green OT - 03/22/2023 8:45 AM CST [facility] Physical Medicine and Rehabilitation Occupational Therapy Initial Evaluation & Discharge Note Patient: Karly Marques Med Record Number: [id number] Date of : 1955 Age: [age] year old Co eval with PT PPE worn by staff: gloves;mask - procedural Tech: N/A Recommendations: OT Discharge Recommendations: Patient at baseline per therapy evaluation and has no further skilledtherapy needs while in hospital In addition to the 1:1 evaluation of the patient, additional eval time was spent completing the chart review prior to the assessment, completing the multidisciplinary plan of care and education plan post evaluation and communicating results of the eval to other treatment team members. Nurse and Physical Therapy contacted regarding patient status and/or discharge plan. Physician Orders: Evaluation and Treat Activity Level: up ad landon PRECAUTIONS: Weight Bearing Status: (No restrictions) DIAGNOSIS: Patient Active Problem List: Chronic back pain Anxiety and depression Chronic anticoagulation CVA (cerebral vascular accident) ([facility]/HCC) Essential hypertension Neuropathy LUL (obstructive sleep apnea) Type 2 diabetes mellitus without complication ([facility]) S/P insertion of spinal cord stimulator Preoperative examination Acute post-operative pain Tachycardia Multiple subsegmental pulmonary emboli without acute cor pulmonale ([facility]) Wound infection complicating hardware ([facility]) Acute intractable headache, unspecified headache type Intractable chronic post-traumatic headache Right hand weakness Cellulitis, wound, post-operative Weakness Chronic left-sided low back pain, unspecified whether sciatica present S/P placement of nerve stimulator Acute cystitis without hematuria Breast cancer ([facility]) Restless legs syndrome (RLS) Rash Past Medical History: Diagnosis Date ??? Breast cancer (CMS/HCC) ??? Chest pain ??? DVT (deep venous thrombosis) (CMS/HCC) ??? GERD (gastroesophageal reflux disease) ??? LUL (obstructive sleep apnea) w cpap ??? Other pulmonary embolism without acute cor pulmonale (CMS/HCC) ??? rls ??? Type 2 diabetes mellitus without complications (CMS/HCC) SUBJECTIVE: Subjective: Pt is agreeable to participate. PATIENT GOALS: Patient's Primary Concern: To have less back pain Home Situation: Type of Residence: Private Residence Lives with:: Daughter Steps to Enter: 2 Handrails: None Home Structure: One Story Primary Bedroom: First Floor Primary Bathroom: First Floor Bathroom : Tub/Shower Combo Equipment at Home: Walker-2 Wheeled;CPAP;Cane-Straight;Chair-Shower Prior Level of Functioning: Mobility: Ambulate-In Home ;Independent;With Assistive Device Fallen Within 6 Mos: 1 Have Help at Home?: Yes, there is help at home now Who assists you at home?: Dermatological Surgeon Oxygen at Home: No Activity at Home: Sedentary Who manages medications?: daughter Pain Assessment: Pain Location #1 Pain Scale/Observation: Numeric (0-10) Pain Rating Score #1: 3 Pain Location : (back) OBJECTIVE: At start of therapy session, patient found in bed and with no alarm General Appearance: 67F in NAD LDA: IV's: Peripheral line Edema: No edema noted Vitals: (*Assess the 3 levels of oxygen saturations both for room air and 02 unless rest on room air is 88% or less). Rest BP: 148/82 HR: 84 Sp02 Sp02 93% RA Observations: VSS via monitor. No s/s of distress, SOB, dizziness. Mental Status/Cognition: Pt follows all commands. Level of Consciousness-Adult: Alert Orientation Level: Oriented X4 Cognition: Follows Commands-Consistent;Attention/concentration-normal for age;Processing-Appropriate UE ROM: RUE: AROM WFL LUE: AROM WFL Strength: RUE: WFL LUE: WFL UE Tone RUE: no abnormal tone noted LUE: no abnormal tone noted Coordination: intact serial opposition for bilateral hands UE Proprioception RUE: WFL LUE: WFL UE Sensation RUE: no complaints of numbness or tingling LUE: no complaints of numbness or tingling Perception: Inattention/Neglect: Appears intact Visual Motor Tracking: Able to track stimulus in all quads w/o difficulty Mobility: A gait belt and non-slip socks were used for all out of bed activity this date. Bed Mobility: Rolling: Stand By Assist Supine to Sit: Stand By Assist with HOB flat via log roll technique Transfers: Sit to Stand: Stand By Assist Stand to Sit: Stand By Assist Toilet Transfers: Stand By Assist Transfer Device: Gait belt;Walker-2 Wheeled Functional Ambulation: Functional mobility of ambulation to sink/bathroom with Stand by assist using w/w. Comments: Functional household distance Balance: Balance Scales/Tests Used: Sitting: Static/Dynamic;Standing: Static/Dynamic Sitting - Static: Good Sitting - Dynamic: Good Standing - Static: Good Standing - Dynamic: Good - Activities of Daily Living Oral Facial Hygiene: Stand By Assist - standing at sink Lower Body Dressing: Stand By Assist - don B socks with sock aid ; educated/demo'd on use of LHSH, shingle catcher, and sock aid to increase independence in LB dressing - pt verbalizes good understanding. Items issued to patient. Lower Body Bathing: educated/demo'd on use of LHBS to increase independence in LB bathing- pt verbalizes good understanding. Item issued to patient. Toileting: Stand By Assist Splint Issued/Checked: none ACTIVITY TOLERANCE: Patient's activity tolerance: good minus. AM-PAC 6 Clicks Daily Activity Raw Score:: 19 TREATMENT / EDUCATION / INTERVENTIONS: While performing OT, Patient was instructed in:functional mobility training, self-care training, energy conservation, safety awareness/fall precautions , spine precautions , use of adaptive equipment, discharge planning, use of call light Presented to patient who demonstrates Good understanding of instructions given. INFORMED CONSENT TO TREATMENT: Plan of care including recommended therapy, goals and frequency, discussed with patient who understands and agrees to proceed. ASSESSMENT: Patient demonstrated independence/ baseline with activities of daily living. No continued IP Occupational Therapy indicated at this time. Equipment Issued: shingle catcher, sock aide, long handled shoehorn, long handled sponge and gait belt. Snf Goal(s): Patient to be baseline with functional mobility and self-care and should discharge to prior level of care. Plan: Plan: Discontinue IP OT If patient is discharged from the facility, this note serves as a discharge summary if further occupational therapy visits did not occur. Refer to filed flowsheet for further details. Following therapy session, patient left in patient bedside chair, with green waffle cushion in place, with bed alarm on , with call light within reach. ICATION TECHNICIAN * Isamar Polk, PT - 03/22/2023 8:45 AM CST [facility] Physical Medicine and Rehabilitation Physical Therapy Initial Evaluation Note Patient: Karly Marques Med Record Number: [id number] Date of : 1955 Age: [age] year old PPE worn by staff: gloves;mask - procedural PPE worn by patient: gown - patient, clean;socks - clean Co Eval with OT due to medical complexity and unknown level of assist required. Recommendations: Discharge PT Discharge Recommendations: Patient may return home without [...] needs if d/c home. Nurse and Occupational Therapy contacted regarding patient status and/or discharge plan. Physician Orders: Evaluation and Treat PRECAUTIONS: Weight Bearing Status: (no restrictions) Activity Level: Up ad landon Spine Precautions: Yes DIAGNOSIS: Patient Active Problem List: Chronic back pain Anxiety and depression Chronic anticoagulation CVA (cerebral vascular accident) ([facility]/HCC) Essential hypertension Neuropathy LUL (obstructive sleep apnea) Type 2 diabetes mellitus without complication ([facility]) S/P insertion of spinal cord stimulator Preoperative examination Acute post-operative pain Tachycardia Multiple subsegmental pulmonary emboli without acute cor pulmonale ([facility]) Wound infection complicating hardware ([facility]) Acute intractable headache, unspecified headache type Intractable chronic post-traumatic headache Right hand weakness Cellulitis, wound, post-operative Weakness Chronic left-sided low back pain, unspecified whether sciatica present S/P placement of nerve stimulator Acute cystitis without hematuria Breast cancer (CMS/HCC) Restless legs syndrome (RLS) Rash Past Medical History: Diagnosis Date ??? Breast cancer (CMS/HCC) ??? Chest pain ??? DVT (deep venous thrombosis) (CMS/HCC) ??? GERD (gastroesophageal reflux disease) ??? LUL (obstructive sleep apnea) w cpap ??? Other pulmonary embolism without acute cor pulmonale (CMS/HCC) ??? rls ??? Type 2 diabetes mellitus without complications (CMS/HCC) SUBJECTIVE: Subjective: I would like to use the bathroom first. Pt agreeable to therapy session. PATIENT GOALS: Patient's Primary Concern: to lessen pain Home Situation: Type of Residence: Private Residence Lives with:: Daughter Steps to Enter: 2 Handrails: None Home Structure: One Story Primary Bedroom: First Floor Primary Bathroom: First Floor Bathroom : Tub/Shower Combo Equipment at Home: Walker-2 Wheeled;CPAP;Cane-Straight;Chair-Shower Prior Level of Functioning: Prior Level of Function Mobility: Ambulate-In Home ;Independent;With Assistive Device Fallen Within 6 Mos: 1 Have Help at Home?: Yes, there is help at home now Who assists you at home?: Dermatological Surgeon Oxygen at Home: No Activity at Home: Sedentary Who manages medications?: daughter Pain Assessment: Pain Location #1 Pain Scale/Observation: Numeric (0-10) Pain Rating Score #1: 3 Pain Location : Back Pain Orientation: Lower Pain Intervention(s): Non-pharmacological Non-pharmacological interventions: Rest;Reposition OBJECTIVE: At start of therapy session, patient found in bed and with no alarm. General Appearance: in bed resting in NAD LDAs: IV's: Peripheral line Edema: no edema noted in bilateral lower extremities Vitals: (*Assess the 3 levels of oxygen saturations both for room air and 02 unless rest on room air is 88% or less). Rest BP: ? 148/82 HR: 84 Sp02 ?? Sp02 93% RA Observations: VSS via monitor. No s/s of distress, SOB, dizziness. Mental Status/Cognition: Level of Consciousness-Adult: Alert Orientation Level: Oriented X4 Cognition: Follows Commands-Consistent;Attention/concentration-normal for age;Processing-Appropriate Attention Span: Appears intact Memory: Appears intact Following Commands: Follows all commands and directions without difficulty ROM: RLE: AROM WFL LLE: AROM WFL Strength: RLE:grossly 4/5 LLE: hip flexion 3+/5, knee extension 4-/5, DF 4/5 Tone: RLE: no abnormal tone noted LLE: no abnormal tone noted Coordination: RLE: not tested LLE: not tested Sensation: RLE: complaints of numbness or tingling LLE: complaints of numbness or tingling Perception: Inattention/Neglect: Appears intact Visual Motor Tracking: Able to track stimulus in all quads w/o difficulty Mobility: A gait belt and non-slip socks were used for all out of bed activity this date. Bed Mobility: Rolling: Stand By Assist Supine to Sit: Stand By Assist with HOB flat Sit to Supine: Activity Does Not Occur Transfers: Sit to Stand: Stand By Assist Stand to Sit: Stand By Assist Transfer Device: Gait belt;Walker-2 Wheeled Gait: Weight Bearing Status: (no restrictions) Distance Ambulated: 75 FEET Ambulation: Assistive Device: Gait Belt;Walker-2 Wheeled Ambulation: Level of Assistance: Stand By Assist Ambulation: Gait Deviations: Andra - Decreased;Increased Trunk Flexion;Push Off - Decreased;Step Length - Decreased Comments: Pt rolls to come to sitting EOB with increased time. Once sitting EOB pt maintains balance with use of UEs. She is able to stand and ambulate with walker, min cues needed for upright position. Pt demos decreased step length and andra during ambulation. Balance: Balance Scales/Tests Used: Sitting: Static/Dynamic;Standing: Static/Dynamic Sitting - Static: Good Sitting - Dynamic: Good Standing - Static: Good -;With Both Upper Extremity's Support Standing - Dynamic: Good -;Fair +;With Both Upper Extremity's Support WW used for balance in standing. ACTIVITY TOLERANCE: Patient's activity tolerance: good minus TREATMENT/INTERVENTIONS: evaluation, ROM, strengthening exercises, bed mobility training, transfer training, gait training, balance activities, monitoring of vitals and cognitive stimulation AM-PAC 6 Clicks Mobility Raw Score:: 23 EDUCATION: While performing PT, Patient was instructed in:functional mobility training, energy conservation, safety awareness/fall precautions , home exercise program, spine precautions , discharge planning, use of [...] Goal Formation With patient Patient will perform bed mobility independently Patient will transfer sit to/from stand with modified independence Patient will transfer bed to/from chair with modified independence Patient will ambulate 100 feet with modified independence and appropriate AD Patient will ascend/descent 2 steps with stand by assist Clinical Dietetic Technician Goal(s): Patient to be independent with functional mobility and self-care and should be able to safely discharge to prior level of care. Equipment Issued: gait belt Plan: Plan: Gait training Transfer training Stair training Assistive device training Endurance training Bed mobility training Balance training Energy conservation techniques Safety awareness Home exercise program training If patient is discharged from the facility, this note serves as a discharge summary if further physical therapy visits did not occur. Refer to filed flowsheet for further details. Following therapy session, patient left in patient bedside chair, with green waffle cushion in place, with chair alarm on, with call light within reach, with Mirlande ALWLER aware, all lines intact. ICATION TECHNICIAN * Justen Mckeon MD - 03/22/2023 6:33 AM CST Neurosurgery Plan of Care No further neurosurgical inpatient care required at this time. Patient should keep currently scheduled follow up appointment with Dr. Gregg. Patient is AAT and MODESTO from NSGY perspective. OK for DVT PPX. ICATION TECHNICIAN * Harry Spears RN - 03/21/2023 8:00 PM CST Problem: Pain/Discomfort Goal: Patient exhibits reduced [...] found in the flowsheet documentation) Outcome: Progressing ICATION TECHNICIAN * Estrella Dunbar MD - 03/21/2023 12:22 PM CST Internal Medicine Progress Note 03/21/2023 @ 12:29 PM Admit Date: 03/19/2023 - Length of Stay 0 Day(s) Subjective: - Pain more controlled this AM compared to prior; some dilaudid use but will try to rely on PO options to prepare to discharge in near future - Still with urinary frequency; unchanged at this time Objective: Temp: [97.5 ??F (36.4 ??C)-98.5 ??F (36.9 ??C)] 98.2 ??F (36.8 ??C) Pulse: [69-79] 73 Resp: [15-18] 15 BP: (120-144)/(79-97) 120/89 Physical Exam General: NAD. Sitting upright comfortably at edge of bed HENT: NC/AT Eyes: Anicteric. Non-injected. Chest: CTAB. No crackles or wheezes. No increased work of breathing. Cardiovascular: RRR. No murmurs, rubs, or gallops Abdomen: Soft. NT/ND. Normal BS+. Extremities: No signs of clubbing, cyanosis, or edema. Skin: Warm. Dry. Left buttock surgical incision with slight dry/redness but does not appear infectious. Neurological: Alert; conversational and follows commands. Moves all extremities spontaneously without issue. No focal deficits. Psych: Appropriate mood and affect Data reviewed including pertinent labs, imaging, diagnostics. Imaging: No results found. Assessment/Plan: Principal Problem: Chronic left-sided low back pain, unspecified whether sciatica present Active Problems: Anxiety and depression Chronic anticoagulation Essential hypertension Type 2 diabetes mellitus without complication (CMS/HCC) Multiple subsegmental pulmonary emboli without acute cor pulmonale (CMS/HCC) Weakness S/P placement of nerve stimulator Acute cystitis without hematuria Breast cancer (CMS/HCC) Restless legs syndrome (RLS) Rash Continue current pain regimen; both myself and nursing have reviewed attempting to rely on oral options to prepare for eventual discharge. Refused lantus last night 2/2 PO intake being low, BG stable; will decrease regimen. PT/OT consult for evaluation today for dispo recs. Will add hydrocortisone cream for rash surrounding surgical site; low c/f infection. Nutrition: Diabetic diet DVT Prophylaxis: Home Xarelto Code: Full Dispo: Pending PT/OT recs; possible DC in next day or two The best way to reach me is through Secure Chat. Estrella Dunbar MD 03/21/2023 ICATION TECHNICIAN * Rosaura Mora RN - 03/21/2023 10:20 AM CST Care Coordination Initial Assessment Anticipated Discharge Date: 03/22/23 Transportation at Discharge: Family Anticipated level of care at discharge: Home Anticipated level of care provider: None Prior to admission level of care: Home Prior to admit provider: None Plans: No discharge needs identified at this time. Consult Case Management if discharge planning needs arise. Comments: Patient is to discharge to home with her daughter. Lives with: Daughter (Lives at home with daughter Marin. Pt's home.) Physical Limitations: Patient ambulates with assistance of walker and cane. Requires Assistance With: Patient requires assistance with daily chorse. Patient is assisted by oskar Mojica as caregiver. Preferred Pharmacy: [id number] - [address] [place] [address] [address] [place] [address] READMISSION RISK SCORE is N/A at 10:21 AM 03/21/2023. Met with patient at bedside. Family Support (name and phone): Extended Emergency Contact Information Primary Emergency Contact: Jimmie Marques Address: [place] [address] Relation: Spouse Secondary Emergency Contact: Yunior Velez Mobile Relation: Daughter Patient or route service representative requests care coordination reach out to family or caregiver listed above regarding discharge planning and at time of discharge? No Patient/Family provided with list of resources? Unknown Preferred Provider / High Quality Network List given?: Unknown Reason for provider choice: Unknown Equipment at Home: Walker-2 Wheeled;CPAP;Cane-Straight List DME pt. requires but does not have.: None Scrap Kettle Tender Referral: No Will continue to follow. For any questions or needs please contact: [facility] Name/Phone number: Rosaura Mora RN [phone] ICATION TECHNICIAN * Shankar Ray RN - 03/21/2023 2:24 AM CST Problem: Pain/Discomfort Goal: Patient exhibits reduced pain/discomfort as evidenced by pain scores Outcome: Progressing Goal: Patient uses pharmacological and non-pharmacological pain management strategies. Outcome: Progressing Goal: Patient verbalizes acceptable level of pain relief and ability to engage in desired activity. Outcome: Progressing ICATION TECHNICIAN * Shankar Ray RN - 03/20/2023 11:39 PM CST Pt refused lantus; poor appetite and has not been eating well per pt. Dr. Garcia notified of admission and refusal of lantus. No pressure sore noted on skin assessment. Rash present on L lower back around the incision. ICATION TECHNICIAN documented in this encounter H&P Notes * Gil Goodwin MD - 03/20/2023 2:[address] [facility] INTERNAL MEDICINE HISTORY & PHYSICAL NOTE Date of Admission: 03/19/2023 Patient: Karly Marques Sex: female Age: [age] year old Date of : 1955 Code Status: Prior SUBJECTIVE Chief Complaint: Intractable back pain History of Present Illness: Karly Marques is a 67yo F w/ PMHx DVT/PE (Xarelto), GERD, HTN, T2DM, LUL, recurrent UTIs, breast cancer (s/p b/l mastectomy), RLS, presenting with intractable back pain and wound site tenderness. Patient had spinal stimulator placed in 2021, but had infection at the site and needed to have the battery removed. She had a new procedure on 02/16/23 with battery placed on left lower lumbar region. She had presented to the hospital 1 week after due to rash and reported drainage, CT did not show a collection. However she was started on vancomycin and given nystatin cream, discharged on 2 weeks of bactrim. She was seen in neurosurgery clinic on 03/06 and seemed to be doing well. On exam today she states that her pain is actually worse and not at the controlled level should would have expected 4 weeks post-op. Says this pain has been causing her nausea, with 20lbs weight lossin the past 4 weeks. She will occasionally have emesis. This pain has also limited her walking. In the ED she is HDS, labs notable for CRP 3, ESR 101, protein gap 5. She was noting 10/10 pain on exam and given 0.4 dilaudid. Past Medical History: Past Medical History: Diagnosis Date ??? Breast cancer (CMS/HCC) ??? Chest pain ??? DVT (deep venous thrombosis) (CMS/HCC) ??? GERD (gastroesophageal reflux disease) ??? LUL (obstructive sleep apnea) w cpap ??? Other pulmonary embolism without acute cor pulmonale (CMS/HCC) ??? rls ??? Type 2 diabetes mellitus without complications (CMS/HCC) Past Surgical History: Past Surgical History: Procedure [...] No Stress: No Stress Concern Present (02/22/2023) [employer] - Occupational Stress Questionnaire [...] capsule by mouth once daily ??? HYDROcodone-acetaminophen ([place]) 7.5-325 MG tablet Take 1 (one) tablet by mouth every 6 hours as needed for Pain ??? hydrOXYzine HCl (Atarax) 10 MG tablet Take 1 (one) tablet by mouth every 6 hours as needed (anxiety) ??? insulin pen needle (B-D ULTRAFINE III SHORT PEN) 31G X 8 MM needle 4 times daily 300 Each PRN ??? Lancets (ONETOUCH DELICA PLUS 33G EXTRA FINE LANCET) USE FOUR TIMES DAILY ??? Lantus SoloStar pen ADMINISTER 50 UNITS UNDER THE SKIN EVERY MORNING ??? losartan (Cozaar) 50 MG tablet Take 1 (one) tablet by mouth once daily ??? methenamine hippurate (Hiprex) 1 GM tablet [...] by mouth once daily 90 tablet4 ??? rOPINIRole (REQUIP) 5 MG tablet TAKE 1 TABLET BY MOUTH EVERY NIGHT Current Medications: Scheduled: ??? HYDROmorphone 0.4 mg Intravenous Once Continuous: PRN: Review of Systems: Review of Systems Constitutional: Positive for weight loss. HENT: Negative. Eyes: Negative. Respiratory: Negative for hemoptysis, sputum production and shortness of breath. Cardiovascular: Negative for chest pain, palpitations and orthopnea. Gastrointestinal: Positive for nausea and vomiting. Negative for abdominal pain, constipation and diarrhea. Genitourinary: Negative for dysuria, frequency and urgency. Musculoskeletal: Positive for back pain. Skin: Negative. Neurological: Negative. Psychiatric/Behavioral: Negative. OBJECTIVE Vital Signs: Temp: [97.7 ??F (36.5 ??C)-98.6 ??F (37 ??C)] 98 ??F (36.7 ??C) Pulse: [73-89] 89 Resp: [16-24] 18 BP: (147-177)/(71-99) 147/71 Physical Exam: Physical Exam Constitutional: Appearance: She is obese. Comments: In discomfort secondary to back pain HENT: Head: Normocephalic. Nose: Nose normal. Mouth/Throat: Mouth: Mucous membranes are moist. Pharynx: Oropharynx is clear. Eyes: Extraocular Movements: Extraocular movements intact. Conjunctiva/sclera: Conjunctivae normal. Cardiovascular: Rate and Rhythm: Normal rate and regular rhythm. Pulses: Normal pulses. Heart sounds: Normal heart sounds. No murmur heard. No friction rub. No gallop. Pulmonary: Effort: Pulmonary effort is normal. No respiratory distress. Breath sounds: Normal breath sounds. No wheezing or rales. Abdominal: General: Abdomen is flat. Bowel sounds are normal. There is no distension. Palpations: Abdomen is soft. Tenderness: There is no abdominal tenderness. There is no guarding. Musculoskeletal: Cervical back: Neck supple. Right lower leg: No edema. Left lower leg: No edema. Skin: General: Skin is warm and dry. Comments: Left lower lumbar spine notable for 4cm long incision, appears slightly erythematous, TTP Neurological: Mental Status: She is alert and oriented to person, place, and time. Lab Results: CBC: Recent Labs Component Name 03/19/23 1350 02/24/23 0233 02/21/23 1830 WBC 9.2 8.8 11.6* HGB 12.8 11.4* 13.9 HCT 39.9 36.5 42.8 MCV 91.9 92.2 89.5 Coagulation Panel: Recent Labs Component Name 02/21/23 1830 02/17/23 1838 02/16/23 1220 02/06/23 1330 02/06/23 1330 11/13/21 0107 11/12/21 1823 PT 13.2 12.7 15.0* - 25.7* 15.2* - INR 1.0 1.0 1.2* - 2.5* 1.2 - PTT - - - - 35.4 77.2* 70.9* - = values in this interval not displayed. BMP: Recent Labs Component Name 03/19/23 1350 02/24/23 0233 02/21/23 1830 NA 138 138 137 POTASSIUM 3.8 4.0 3.9 CL 103 106 101 CO2 26 26 28 BUN 10 11 16 CREATININE 0.75 0.63 0.70 CALCIUM 9.6 8.7 10.4* Recent Labs Component Name 12/26/22 0132 12/25/22 0356 12/24/22 0135 MAGNESIUM 1.5* 1.7 1.6 Recent Labs Component Name 02/24/23 0233 12/26/22 0132 12/25/22 0356 PHOS 2.5* 2.7* 2.2* Hepatic Panel: Recent Labs Component Name 03/19/23 1350 02/24/23 0233 02/21/23 1830 02/17/23 1838 AST 16 - 18 19 ALT 17 - 19 18 ALKPHOS 75 - 84 76 TBILI 0.6 - 0.7 0.4 ALB 3.4 2.8* 3.6 3.6 ABG: No results for input(s): PH , PCO2 , PO2 in the last 26727 hours. Invalid input(s): BICAR3 Amylase/Lipase: Invalid input(s): AMYL , LIPA Thyroid Studies: No results for input(s): TSH , T4 in the last 99515 hours. Cardiac Enzymes: Recent Labs Component Name 11/11/218 11/05/21 1350 TROPONINI <0.010 <0.010 Lipid Panel: No results for input(s): LDLCALC , HDL in the last 87419 hours. UA: Trace leuk esterase Negative nitrite 11-20 WBC Microbiology: Microbiology Results (Displays last 21 days for this encounter ONLY) Procedure Component Value - Date/Time SARS-COV-2 (COVID-19) RAPID [[id number]] (Normal) Collected: 03/19/23 1350 Lab Status: Final result Specimen: Microbiology from Nasopharyngeal Updated: 03/19/23 1429 COVID-19 PCR Not detected Narrative: The [employer] Xpert Xpress SARS-COV-2 has been authorized by the Food and Drug Administration (FDA) under an Emergency Use Authorization (EUA). This test has been validated in accordance with the FDA'sguidance document Policy for Diagnostic Testing in Laboratories [...] this EUA assay are available upon request. CULTURE URINE [[id number]] Collected: 03/19/23 135 Lab Status: In process Specimen: Urine Clean Catch Updated: 03/19/23 1538 Imaging & Studies: ASSESSMENT & PLAN Weakness (POA: Unknown) Chronic left-sided low back pain, unspecified whether sciatica present (POA: Unknown) S/P placement of nerve stimulator (POA: Unknown) #Intractable Back Pain #S/P Placement of Nerve stimulator -stimulator replaced 02/16 -has been on home [place] 7.5-325 -follows outpatient pain management PLAN: -neurosurgery consulted appreciate recs -oxy 5+10mg -dilaudid .4mg for breakthrough -consider consult pain management #T2DM -A1c 8.6 12/25/22 -home lantus 50U qhs, Aspart 22U w/ meals TID PLAN: -Lantus 25U QHS -Aspart 12U w/ meals TID -SSI 0-12 #HTN -continue home HCTZ 12.5mg #Elevated Protein Gap #elevated ESR and CRP -protein gap 5 -esr 101 -crp 3 Plan: -consider SPEP/UPEP #Hx of Breast cancer -s/p b/l mastectomy -continue home aromasin #Hx of DVT/PE -DVT 2018 -PE 2017 and 2018 PLAN -Continue home xarelto 20mg #Restless leg syndrome -continue home Ropinirole 5mg -continue home amitriptyline 25mg Code: full Diet: diabetic Electrolytes: Replete PRN PPx: xarelo Access: piv Dispo: Admit to Medicine. The above assessment and plan will be discussed with the attending. This note is not final until attested by attending physician. Gil Goodwin MD Internal Medicine Resident [facility] 03/20/2023 2:51 AM ICATION TECHNICIAN Associated attestation - Estrella Dunbar MD - 03/20/2023 5:47 PM APPLICATION TECHNICIAN I have verified the documentation of the resident including all history, exam, and medical decision-making details. I have personally performed a physical exam and have personally reviewed the data to support my medical decision-making as outlined in their note. I agree with their assessment and plan other than any corrections/additions as documented below. Principal Problem: Chronic left-sided low back pain, unspecified whether sciatica present Active Problems: Anxiety and depression Chronic anticoagulation Essential hypertension Type 2 diabetes mellitus without complication (CMS/HCC) Multiple subsegmental pulmonary emboli without acute cor pulmonale (CMS/HCC) Weakness S/P placement of nerve stimulator Acute cystitis without hematuria Breast cancer (CMS/HCC) Restless legs syndrome (RLS) Corrections/Additions: 67F presenting for acute on chronic back pain in setting of recent NSGY procedure, as well as with symptoms of UTI (increased frequency, abdominal fullness). Evaluated by NSGY, no c/f infection on their end and no need for intervention. Started on scheduled Tylenol + PRN oxycodone for pain control with breakthrough dilaudid. Minimal options for UTI; discussed this with patient, she is prepared totry Macrobid again so this was started as cultures/sensitivities process. Date of Service: 03/20/2023 Estrella Dunbar MD documented in this encounter Consult Notes * Croby Ritchie, DESIGN ENGINEERING MANAGER-MANAGER MSW - 03/22/2023 8:56 PM CST Neurosurgery Consult Note Name: Karly Marques : 1955 Date of Admission:03/19/2023 Date of Consult:03/22/2023 8:56 PM Chief Complaint (CC): Wound drainage HISTORY OF PRESENT ILLNESS (HPI): Patient is a 67 year old female with PMH DVT/PE (on Xarelto), GERD, DM, LUL, recurrent UTIs, spinalstimulator who presented for persistent back pain and wound redness on 03/19/2023 now with complaints of drainage. Patient's stimulator replaced on 02/16/23. She presented one week later with rash over the wound that was thought to be a tape rash. She was discharged on oral antibiotics that she hasnot been taking. She was last seen in clinic on 03/07 and noted to be doing well. Currently, she states her symptoms have not improved. Neurologically, she is at baseline full strength. Both incisions have overlying erythema, improved compared to photos from last admission. [facility] NEURO SPINAL SURGERY HIGH RISK VARIABLES None currently present Past Medical History: Diagnosis Date ??? Breast cancer (CMS/HCC) ??? Chest pain ??? DVT (deep venous thrombosis) (CMS/HCC) ??? GERD (gastroesophageal reflux disease) ??? LUL (obstructive sleep apnea) w cpap ??? Other pulmonary embolism without acute cor pulmonale (CMS/HCC) ??? rls ??? Type 2 diabetes mellitus without complications (CMS/HCC) Past Surgical History: Procedure Laterality Date ??? [...] (one) capsule by mouth once daily HYDROcodone-acetaminophen ([place]) 7.5-325 MG tablet Take 1 (one) tablet by mouth every 6 hours as needed for Pain hydrOXYzine HCl (Atarax) 10 MG tablet Take 1 (one) tablet by mouth every 6 hours as needed (anxiety) hydrOXYzine HCl (Atarax) 25 MG tablet Take 1 (one) tablet by mouth 3 times daily as needed for Itching insulin pen needle (B-D ULTRAFINE III SHORT PEN) 31G X 8 MM needle 4 times daily Lancets (ONETOUCH DELICA PLUS 33G EXTRA FINE LANCET) USE FOUR TIMES DAILY Lantus SoloStar pen ADMINISTER 50 UNITS UNDER THE SKIN EVERY MORNING losartan (Cozaar) 50 MG tablet Take 1 (one) tablet by mouth once daily methenamine hippurate (Hiprex) 1 GM tablet TAKE [...] ??? 0.9% NaCl injection 1-10 mL ??? acetaminophen (Tylenol) tablet 1,000 mg ??? amitriptyline (Elavil) tablet 25 mg ??? dextrose 10 % IV bolus Or ??? dextrose 10 % IV bolus Or ??? glucagon (Glucagen) injection 1 mg ??? diphenhydrAMINE (Benadryl) capsule 25 mg ??? diphenhydrAMINE (Benadryl) capsule 50 mg ??? exemestane (Aromasin) tablet 25 mg ??? glucose (Diabetic Use) (Dex4 Glucose) oral liquid Or ??? glucose (Diabetic Use) oral gel Or ??? glucose chew tablet 4 tablet ??? hydroCHLOROthiazide (Hydrodiuril) tablet 12.5 mg ??? hydrocortisone (Hytone) 1 % cream ??? HYDROmorphone (Dilaudid) injection 0.4 mg ??? hydrOXYzine HCl (Atarax) tablet 25 mg ??? insulin aspart (NovoLOG) pen 0-12 Units ??? insulin aspart (NovoLOG) pen 8 Units ??? insulin glargine (Lantus) pen 5 Units ??? methocarbamol (Robaxin) tablet 500 mg ??? nitrofurantoin monohyd macro crystals (Macrobid) capsule 100 mg ??? ondansetron (disintegrating) (Zofran ODT) tablet 4 mg Or ??? ondansetron (Zofran) injection 4 mg ??? oxyCODONE (immediate release) (Roxicodone) tablet 5 mg Or ??? oxyCODONE (immediate release) (Roxicodone) tablet 10 mg ??? polyethylene glycol 3350 (Miralax) packet 17 g ??? rivaroxaban (Xarelto) tablet 20 mg ??? rOPINIRole (Requip) tablet 5 mg Social History Tobacco Use ??? Smoking status: Former Packs/day: .5 Types: Cigarettes Quit date: 12/05/1977 Years since quittin.3 ??? Smokeless tobacco: Never Substance Use Topics ??? Alcohol use: No Family History Problem Relation Name Age of Onset ??? Heart Disease Mother ??? Diabetes Mother ??? Cancer Father ??? Hemochromatosis Father ??? Cancer Sister ??? Heart Disease Brother REVIEW OF SYSTEMS Deferred PHYSICAL EXAM BP 121/77 Pulse 84 Temp 98.7 ??F (37.1 ??C) Resp 17 Ht 1.549 m (5' 1 ) Wt 123.8 kg (273 lb) SpO2 95% General: calm, NAD Neuro: alert, oriented x3, follows commands in all 4 extremities Motor: ?? Hip Flexor Quad Hamstring Tib Ant Gastroc EHL Right 5/5 5/5 5/5 5/5 5/5 5/5 Left 4+/5 4+/5 4+/5 5/5 5/5 5/5 ?? Pain limited in [facility] Recent Labs Component Name 03/22/23 1027 WBC 9.1 HGB 13.2 HCT 41.5 PLTCOUNT 290 Recent Labs Component Name 03/22/23 1028 02/17/23 1838 02/06/23 1331 NA 137 - - POTASSIUM 4.2 - 3.7 CHLORIDE - - 103 CO2 27 - 25 BUN 14 - 13 CREATININE 0.89 - 0.93 GLUCOSE 244* - 258* - = values in this interval not displayed. Recent Labs Component Name 02/21/23 1830 INR 1.0 Assessment: 67 year old female with PMH DVT/PE (on Xarelto), GERD, DM, LUL, recurrent UTIs, spinal stimulator who presented for persistent back pain and wound redness on 03/19/2023 now with complaints of drainage. Patient's stimulator replaced on 02/16/23. She presented one week later with rash over the wound that was thought to be a tape rash. She was discharged on oral antibiotics that she has not been taking. She was last seen in clinic on 03/07 and noted to be doing well. Currently, she states her symptoms have not improved. Neurologically, she is at baseline full strength. Both incisions have overlying erythema, improved compared to photos from last admission. Plan: - Continue to monitor neurologic exam q4h - Please obtain CT Lumbar Spine with visualization of spinal cord stimulators - Recommend Infectious Disease c/s for antibiotic treatment recommendations - Recommend holding anticoagulation/antiplatelet medications at this time Case discussed with Dr. Gregg at 20:51. Corby Ritchie APRN-MANAGER MSW 03/22/2023 8:56 PM ICATION TECHNICIAN * Sammy Cobb MD - 03/19/2023 11:38 PM CSTAssociated Order(s): IP CONSULT TO NEUROSURGERY; IP CONSULT TO NEUROSURGERY Neurosurgery Consult Note Name: Karly Marques :1955 Date of Admission:03/19/2023 Date of Consult:1:38 PM Time images reviewed: 0130 Time patient examined: 0130 Reason for consult: back pain Consult Requested by: ED HISTORY OF PRESENT ILLNESS (HPI): Patient is a 67 year old with PMH DVT/PE (on Xarelto), GERD, DM, LUL, recurrent UTIs, spinal stimulator who presents for persistent back pain and wound redness. Patient's stimulator was placed in 2021 but was removed due to infection. She had it replaced on 02/16/23. She presented one week later with rash over the wound and reported drainage. Patient was observedinpatient for several days and no drainage was noted. CT scan showed no collection. She was evaluated by ID due to wound concerns and possible UTI, decision made to discharge on oral antibiotics. Redness overlying incision was felt to be a tape-rash. She was last seen in clinic on 03/07 and noted to be doing well. [facility] NEURO SPINAL SURGERY HIGH RISK VARIABLES None Past Medical History: Diagnosis Date ??? Breast cancer (CMS/HCC) ??? Chest pain ??? DVT (deep venous thrombosis) (CMS/HCC) ??? GERD (gastroesophageal reflux disease) ??? LUL (obstructive sleep apnea) w cpap ??? Other pulmonary embolism without acute cor pulmonale (CMS/HCC) ??? rls ??? Type 2 diabetes mellitus without complications (CMS/HCC) Past Surgical History: Procedure Laterality Date ??? [...] THE BATTERY IN THE LOWER LUMBAR REGION No current facility-administered medications for this encounter. Current Outpatient Medications Medication ??? amitriptyline (ELAVIL) 25 MG tablet ??? exemestane (AROMASIN) 25 MG tablet ??? HumaLOG KwikPen 100 UNIT/ML pen ??? hydroCHLOROthiazide (Microzide) 12.5 MG capsule ??? HYDROcodone-acetaminophen (Auburn) 7.5-325 MG tablet ??? hydrOXYzine HCl (Atarax) 10 MG tablet ??? insulin pen needle (B-D ULTRAFINE III SHORT PEN) 31G X 8 MM needle ??? Lancets (ONETOUCH DELICA PLUS 33G EXTRA FINE LANCET) ??? Lantus SoloStar pen ??? losartan (Cozaar) 50 MG tablet ??? methenamine hippurate (Hiprex) 1 GM tablet ??? methocarbamol (Robaxin) 500 MG tablet ??? naloxone HCl (NARCAN) 4 MG/0.1ML nasal spray ??? ONETOUCH ULTRA test strip ??? oxyBUTYnin CR 24hr (Ditropan XL) 15 MG tablet ??? rOPINIRole (REQUIP) 5 MG tablet Allergies Allergen Reactions ??? Latex Rash ??? [...] Reslizumab Unknown ??? Skin Adhesives Skin Reactions Social History Tobacco Use ??? Smoking status: Former Packs/day: .5 Types: Cigarettes Quit date: 12/05/1977 Years since quittin.3 ??? Smokeless tobacco: Never Substance Use Topics ??? Alcohol use: No Family History Problem Relation Name Age of Onset ??? Heart Disease Mother ??? Diabetes Mother ??? Cancer Father ??? Hemochromatosis Father ??? Cancer Sister ??? Heart Disease Brother PHYSICAL EXAM BP 150/77 (BP Cuff Size: A) Pulse 80 Temp 97.9 ??F (36.6 ??C) (Temporal) Resp 19 Ht 1.549 m(5' 1 ) Wt 123.8 kg (273 lb) SpO2 98% General: awake, alert, NAD Neuro: GCS: 15 Neuro: Motor: Hip Flexor Quad Hamstring Tib Ant Gastroc EHL Right 5/5 5/5 5/5 5/5 5/5 5/5 Left 4+/5 4+/5 4+/5 5/5 5/5 5/5 Pain limited in [facility] WBC: 9.2 (last 8.8) Plt: 249 Cr: 0.75 ESR: 101 (last 87) CRP: 3.0 (last 4.9) UA: trace leukocyte esterase RADIOLOGY No new images to review Assessment/ Plan: Karly Marques is a 67 year old female with PMH DVT/PE (on Xarelto), GERD, DM, LUL, recurrent UTIs, spinal stimulator who presents for persistent back rut and wound redness. Patient's stimulator replaced on 02/16/23. She presented one week later with rash over the wound that was thought to be a tape rash. She was discharged on oral antibiotics that she has not been taking. She was last seen inclinic on 03/07 and noted to be doing well. Currently, she states her symptoms have not improved. Neurologically, she is at baseline full strength. Both incisions have overlying erythema, improved compared to photos from last admission. WBC and CRP stable/mildly improved, ESR slightly worse compared to last admission. Overall, there is low concern for wound infection. - Recommend admission to medicine for pain control - Neurosurgery will continue to follow Case discussed with Dr. Redmond at 0100. Sammy Cobb MD 03/19/2023 11:38 PM ICATION TECHNICIAN documented in this encounter ED Notes * Teetee Chaudhari RN - 03/20/2023 10:47 PM CST Called and gave report to [facility] - patient to be transported to [facility] (or 116 per floor charge nurse) Shortly. ICATION TECHNICIAN * Andreea Moody RN - 03/20/2023 2:32 AM CST Patient assist into inpatient hospital bed by Semaj RODAS. ICATION TECHNICIAN * Coco Harris MD - 03/20/2023 2:10 AM CST For this patient encounter, I reviewed the Resident documentation, procedures (if done), treatment plan, and medical decision making; and I had [id number] time with this patient. I have conducted an independent evaluation of this patient including a focused history of nerve stimulator with persistent pain. She had a nerve stimulator on her her right side which was removed dueto pain and now was placed on her left and since then she is had some persistent pain. She sits seen neurosurgery in the clinic about a week ago was having pain them but she says she feels like she is tolerating okay however she complained of continued rash and itching in that area despite using some creams and Benadryl. She presented today just because the constant back pain. No fevers no chillsno dysuria but has some urinary frequency. and a physical exam revealing moves around very slowly with wounds to her back are dry. They are healing. There is no surrounding cellulitis. She does have some tenderness along the stimulator on the left but there is no fluctuance. No warmth. The rash is consistent just very dry skin rash. Papules. No macules - which are in concordance with the Residentdocumentation except as otherwise noted. Labs were done some of them are improved from her prior inflammatory markers. Neurosurgery was consulted they feel feel that there is any complication or problem with the the wounds. The not concerned of infection. There only recommendation is to consider admission for pain management. Patient is not comfortable going home. Feel steady will discuss with medicine for an observation admission. Coco Harris MD ICATION TECHNICIAN * Andreea Moody RN - 03/20/2023 1:55 AM CST Patient able to ambulate to bathroom independently. ICATION TECHNICIAN * Ryan Yung MD - 03/19/2023 9:58 PM CST Images from the original note were not included. [facility] Emergency Department Emergency Medicine Resident Note HPI: Karly Marques is a 67 year old female with mhx of DVT/PE (on Xarelto), GERD, DM and LUL is a 67year old female is presenting to the ED c/o L low back pain at site of her postop incision. States she had a nerve stim battery placed in January by Dr. Gregg and has had persistent pain since then without improvement. She was seen in clinic and given antibiotics for treatment, however her pain isongoing and unresolved despite taking norco. She also notes associated urinary sx including malodorand increased frequency without dysuria. Notes that a year ago, she had pain to the R side when thebattery was previously placed on the R, which was subsequently Removed d/t pain. The pain to her L side is more severe. Physical: BP 177/95 Pulse 79 Temp 97.7 ??F (36.5 ??C) (Temporal) Resp 16 Ht 1.549 m (5' 1 ) Wt 123.8 kg (273 lb) SpO2 99% Physical Exam Constitutional: General: She is in acute distress. HENT: Head: Normocephalic. Nose: Nose normal. Mouth/Throat: Mouth: Mucous membranes are moist. Eyes: Pupils: Pupils are equal, round, and reactive to light. Cardiovascular: Rate and Rhythm: Normal rate and regular rhythm. Pulses: Normal pulses. Pulmonary: Effort: Pulmonary effort is normal. No respiratory distress. Abdominal: Palpations: Abdomen is soft. Musculoskeletal: Cervical back: Normal range of motion. Comments: Spontaneous movement of all extremities Difficulty moving d/t pain Postop incision sites appear red and dry with TTP, no drainage from the sites Neurological: Mental Status: She is alert. Medical Decision Making & ED Course: Problems: 1. Low back pain DDx 1. Abscess vs postop infection vs cellulitis vs chronic pain vs other Plan - Labs, NSGY evaluation Summary Karly Marques is a 67 year old female presenting with low back pain at site of stim chip. Her exam demonstrated dry, red skin overlying her left incision site however there is lower concern for infection. She had recent CT imaging which did not show sign of abscess. Will have NSGY evaluate ED Course: - Reviewed triage notes/prior records if available, vitals reviewed, pt assessed, orders placed. - ED Course as of 03/20/23 05MonMar 20, 2023 0029 Pt evaluated at bedside, acute distress d/t pain to L buttock, VS reviewed and reassuring. Pending the following workup: review of UA, NSGY evaluation [DO] 0127 Review of triage labs showing no leukocytosis. ESR slightly elevated at 101 with CRP 3. POCUS demonstrating cobblestoning at the site without evidence of abscess. NSGY consulted for evaluation. [DO] 0300 NSGY recommending admission for pain control. There is low concern for infection despite mildly elevated inflammatory markers. Discussed with medicine who will admit pt to their service. [DO] ED Course User Index [DO] Ryan Yung MD Clinical Impressions as of 03/20/23 0529 Weakness Chronic left-sided low back pain, unspecified whether sciatica present S/P placement of nerve stimulator - Prior to disposition, discussed results, plan, and related precautions with patient. All questions were answered to the best of my ability and they express understanding and are comfortable with plan. Orders Placed This Encounter ??? SARS-COV-2 (COVID-19) RAPID Standing Status: Standing Number of Occurrences: 1 Order Specific Question: Release to patient Answer: Immediate Order Specific Question: Is the patient experiencing any symptoms consistent with COVID (eg. Fever,cough, shortness of breath)? Answer: Yes Order Specific Question: Reason for test? Answer: Symptoms compatible with COVID-19. ??? CULTURE URINE Standing Status: Standing Number of Occurrences: 1 Order Specific Question: Release to patient Answer: Immediate ??? CBC W AUTO DIFFERENTIAL Standing Status: Standing Number of Occurrences: 1 Order Specific Question: Release to patient Answer: Immediate ??? COMPREHENSIVE METABOLIC PANEL Standing Status: Standing Number of Occurrences: 1 Order Specific Question: Release to patient Answer: Immediate ??? ERYTHROCYTE SEDIMENTATION RATE Standing Status: Standing Number of Occurrences: 1 Order Specific Question: Release to patient Answer: Immediate ??? C-REACTIVE PROTEIN Standing Status: Standing Number of Occurrences: 1 Order Specific Question: Release to patient Answer: Immediate ??? URINALYSIS REFLEX MICROSCOPIC REFLEX CULTURE Standing Status: Standing Number of Occurrences: 1 Order Specific Question: Release to patient Answer: Immediate ??? TROPONIN-I HIGH SENSITIVE BASELINE + 1HR Standing Status: Standing Number of Occurrences: 1 Order Specific Question: Release to patient Answer: Immediate ??? TROPONIN-I HIGH SENSITIVE REFLEX 1HOUR Standing Status: Standing Number of Occurrences: 1 Order Specific Question: Release to patient Answer: Immediate ??? URINE MICROSCOPIC ONLY REFLEX TO CULTURE Standing Status: Standing Number of Occurrences: 1 Order Specific Question: Release to patient Answer: Immediate ??? EKG 12-LEAD Standing Status: Standing Number of Occurrences: 1 Order Specific Question: Release to patient Answer: Immediate Order Specific Question: Time EKG Completed Answer: 1:57 PM Order Specific Question: Time Physician Notified Answer: 2:15 PM Order Specific Question: Provider Name Answer: Diagnosis: 1. Weakness 2. Chronic left-sided low back pain, unspecified whether sciatica present 3. S/P placement of nerve stimulator Disposition: Admitted to medicine ICATION TECHNICIAN * Sophie Moss RN - 03/19/2023 9:38 PM CST Bed: AC26 Expected date: Expected time: Means of arrival: Comments: TRIAGE ICATION TECHNICIAN * Paige Braun - 03/19/2023 7:19 PM CST Pt in waiting room, NAD noted. Patient complaining of back pain 10/31, would like pain meds. Will relay to RN. ICATION TECHNICIAN * Yoli Rivera - 03/19/2023 5:31 PM CST Patient complaining of pain and wondering about wait times. ICATION TECHNICIAN * Maira Elizondo - 03/19/2023 2:28 PM CST Pt in waiting room, NAD noted, no request at this time. ICATION TECHNICIAN * Maira Elizondo - 03/19/2023 1:56 PM CST Pt having EKG done, labs collected, c/o pain (10/01) PA notified. ICATION TECHNICIAN * Sisi Ricks PA-C - 03/19/2023 1:34 PM CST Medical Screening Exam 03/19/2023 1:34 PM Provider contact with the patient Karly Marques CC: Pain Back (BIBself ambulatory to ED. Pt reports having back surgery x1 month ago. Pt states I've had a lot of problems since this story including nausea, itching around incision site on back and continued back pain. Pt is also concerned she has a UTI d/t frequent urination. Denies dysuria, but states when she has a UTI she typically doesn't have pain with urination. ) Chief complaint narrative was entered by triage nurse, not by provider Provider in Triage HPI: Karly Marques is a 67 year old female PMH as noted below who presents with concern for UTI. Spinal stim placed a few weeks ago and hasn't felt right since. Weight loss. Hasn't taken her prescribed Bactrim, states she's allergic to it. No fever/chills, CP or SOB. Limited Chart History: Past Medical History: Diagnosis Date ??? Breast cancer (CMS/HCC) ??? Chest pain ??? DVT (deep venous thrombosis) (CMS/HCC) ??? GERD (gastroesophageal reflux disease) ??? LUL (obstructive sleep apnea) w cpap ??? Other pulmonary embolism without acute cor pulmonale (CMS/HCC) ??? rls ??? Type 2 diabetes mellitus without complications (CMS/HCC) Past Surgical History: Procedure Laterality Date ??? [...] THE BATTERY IN THE LOWER LUMBAR REGION No current facility-administered medications for this encounter. Current Outpatient Medications Medication Sig Dispense Refill ??? amitriptyline (ELAVIL) 25 MG tablet at bedtime ??? exemestane (AROMASIN) 25 MG tablet Take 1 (one) tablet by mouth DAILY ??? HumaLOG KwikPen 100 UNIT/ML pen 22 (twenty two) Units 3 times daily before meals ??? hydroCHLOROthiazide (Microzide) 12.5 MG capsule Take 1 (one) capsule by mouth once daily ??? HYDROcodone-acetaminophen ([place]) 7.5-325 MG tablet Take 1 (one) tablet by mouth every 6 hours as needed for Pain ??? hydrOXYzine HCl (Atarax) 10 MG tablet Take 1 (one) tablet by mouth every 6 hours as needed (anxiety) ??? insulin pen needle (B-D ULTRAFINE III SHORT PEN) 31G X 8 MM needle 4 times daily 300 Each PRN ??? Lancets (ONETOUCH DELICA PLUS 33G EXTRA FINE LANCET) USE FOUR TIMES DAILY ??? Lantus SoloStar pen ADMINISTER 50 UNITS UNDER THE SKIN EVERY MORNING ??? losartan (Cozaar) 50 MG tablet Take 1 (one) tablet by mouth once daily ??? methenamine hippurate (Hiprex) 1 GM tablet [...] by mouth once daily 90 tablet4 ??? rOPINIRole (REQUIP) 5 MG tablet TAKE 1 TABLET BY MOUTH EVERY NIGHT Allergies Allergen Reactions ??? Latex Rash ??? [...] Reslizumab Unknown ??? Skin Adhesives Skin Reactions PCP: Justen Gale MD (Above may be pending completion) Vital Signs reviewed in Triage BP 148/81 Pulse 82 Temp 98.6 ??F (37 ??C) Resp 18 Ht 1.549 m (5' 1 ) Wt 123.8 kg (273 lb) SpO2 99% Pertinent Physical Findings: Constitutional: vitals as above, WDWN Head: Head normocephalic, atraumatic Eyes: conjunctiva clear ENT: no rhinorrhea Neck: neck supple, no nuchal rigidity Resp: respirations even and unlabored, lungs clear bilaterally CV: Heart RRR, no m/c/r/g Abd: nondistended Skin: warm, dry,color normal for ethnicity MSK: ambulatory, moves all extremities Neuro: A&O x 3, CN 2-12 grossly intact bilat Psych: Normal affect Complete physical exam is limited due to patient sitting in up right position in chair MDM: I have reviewed all lab and imaging resulted ordered during this visit and available at the time ofthis note. Triage notes and available nursing notes reviewed. Previous medical record reviewed whenavailable. Management options include but not limited to: physical exam, laboratory testing, discussion with other providers. PLAN Diagnostic tests ordered: Orders Placed This Encounter Procedures ??? SARS-COV-2 (COVID-19) RAPID ??? CBC W AUTO DIFFERENTIAL ??? COMPREHENSIVE METABOLIC PANEL ??? ERYTHROCYTE SEDIMENTATION RATE ??? C-REACTIVE PROTEIN ??? URINALYSIS REFLEX MICROSCOPIC REFLEX CULTURE ??? TROPONIN-I HIGH SENSITIVE BASELINE + 1HR ??? EKG 12-LEAD MEDICATIONS FOR CURRENT ENCOUNTER: ?? SCHEDULED MEDICATIONS: ?? No current facility-administered medications for this encounter. ?? CONTINUOUS MEDICATIONS: ?? No current facility-administered medications for this encounter. ?? PRN MEDICATIONS: ?? No current facility-administered medications for this encounter. Based on the Medical Screening Exam performed and diagnostic tests at this time, further evaluationis indicated and will be performed. Patient will be transferred to a main ED room when one is available and care will be transferred to ER provider. Sisi Ricks PA-C ICATION TECHNICIAN documented in this encounter Plan of Treatment Scheduled Referrals Name Type Priority Associated Diagnoses Order Schedule Ref to [facility]itional Care Outpatient Referral Routine Rash 1 Occurrences starting 03/22/2023 until 03/22/2024 documented as of this encounter Procedures Procedure Name Priority Date/Time Associated Diagnosis Comments GLUCOSE - POINT OF CARE Routine 03/23/2023 4:26 PM APPLICATION TECHNICIAN GLUCOSE - POINT OF CARE Routine 03/23/2023 11:[address] LUMBAR SPINE W CONTRAST Routine 03/23/2023 8:37 AM APPLICATION TECHNICIAN S/P insertion of spinal cord stimulator GLUCOSE - POINT OF CARE Routine 03/23/2023 7:25 AM APPLICATION TECHNICIAN GLUCOSE - POINT OF CARE Routine 03/22/2023 7:30 PM APPLICATION TECHNICIAN GLUCOSE - POINT OF CARE Routine 03/22/2023 4:55 PM APPLICATION TECHNICIAN GLUCOSE - POINT OF CARE Routine 03/22/2023 11:54 AM APPLICATION TECHNICIAN RENAL FUNCTION PANEL Routine 03/22/2023 10:28 AM APPLICATION TECHNICIAN Acute cystitis without hematuria MAGNESIUM BLOOD Routine 03/22/2023 10:28 AM APPLICATION TECHNICIAN Acute cystitis without hematuria CBC W AUTO DIFFERENTIAL Routine 03/22/2023 10:27 AM APPLICATION TECHNICIAN Acute cystitis without hematuria GLUCOSE - POINT OF CARE Routine 03/22/2023 8:46 AM APPLICATION TECHNICIAN GLUCOSE - POINT OF CARE Routine 03/21/2023 8:25 PM APPLICATION TECHNICIAN GLUCOSE - POINT OF CARE Routine 03/21/2023 5:17 PM APPLICATION TECHNICIAN CARDIAC EKG ORDER 03/21/2023 12: 44 PM APPLICATION TECHNICIAN OT EVAL AND TREAT Routine 03/21/2023 12: 20 PM APPLICATION TECHNICIAN GLUCOSE - POINT OF CARE Routine 03/21/2023 12:05 PM APPLICATION TECHNICIAN GLUCOSE - POINT OF CARE Routine 03/21/2023 8:03 AM APPLICATION TECHNICIAN GLUCOSE - POINT OF CARE Routine 03/20/2023 11:26 PM APPLICATION TECHNICIAN GLUCOSE - POINT OF CARE Routine 03/20/2023 6:28 PM APPLICATION TECHNICIAN GLUCOSE - POINT OF CARE Routine 03/20/2023 11:33 AM APPLICATION TECHNICIAN GLUCOSE - POINT OF CARE Routine 03/20/2023 9:22 AM APPLICATION TECHNICIAN CBC W/O DIFFERENTIAL STAT 03/20/2023 3:55 AM APPLICATION TECHNICIAN Chronic left-sided low back pain, unspecified whether sciatica present COMPREHENSIVE METABOLIC PANEL STAT 03/20/2023 3:55 AM APPLICATION TECHNICIAN Chronic left-sided low back pain, unspecified whether sciatica present PHOSPHORUS BLOOD STAT 03/20/2023 3:55 AM APPLICATION TECHNICIAN Chronic left-sided low back pain, unspecified whether sciatica present MAGNESIUM BLOOD STAT 03/20/2023 3:55 AM APPLICATION TECHNICIAN Chronic left-sided low back pain, unspecified whether sciatica present TROPONIN-I HIGH SENSITIVE REFLEX 1HOUR Timed 03/19/2023 7:36 PM APPLICATION TECHNICIAN EKG 12-LEAD Routine 03/19/2023 1:57 PM APPLICATION TECHNICIAN Weakness SARS-COV-2 (COVID-19) RAPID STAT 03/19/2023 1:50 PM APPLICATION TECHNICIAN URINE MICROSCOPIC ONLY REFLEX TO CULTURE STAT 03/19/2023 1:50 PM APPLICATION TECHNICIAN TROPONIN-I HIGH SENSITIVE BASELINE + 1HR STAT 03/19/2023 1:50 PM APPLICATION TECHNICIAN URINALYSIS REFLEX MICROSCOPIC REFLEX CULTURE STAT 03/19/2023 1:50 PM APPLICATION TECHNICIAN C-REACTIVE PROTEIN MALDONADO 03/19/2023 1: 50 PM APPLICATION TECHNICIAN CULTURE URINE STAT 03/19/2023 1:50 PM APPLICATION TECHNICIAN ERYTHROCYTE SEDIMENTATION RATE STAT 03/19/2023 1:50 PM APPLICATION TECHNICIAN CBC W AUTO DIFFERENTIAL STAT 03/19/2023 1:50 PM APPLICATION TECHNICIAN COMPREHENSIVE METABOLIC PANEL STAT 03/19/2023 1:50 PM APPLICATION TECHNICIAN documented in this encounter Results * (ABNORMAL) GLUCOSE - POINT OF CARE (03/23/2023 4:26 PM APPLICATION TECHNICIAN) Glucose WB/POC 166(H) 70 - 115 mg/dL 03/23/2023 4:27 PM APPLICATION TECHNICIAN [facility] Specimen Type Cap Fingerstick 2022 4:27 PM APPLICATION TECHNICIAN [facility] Blood BLOOD SPECIMEN / Unknown 03/23/2023 4:26 PM APPLICATION TECHNICIAN 03/23/2023 4:27 PM APPLICATION TECHNICIAN Estrella Dunbar MD LAB - POINT OF CARE ORDERABLES [address] [address], [facility] [phone] * (ABNORMAL) GLUCOSE - POINT OF CARE (03/23/2023 11:16 AM APPLICATION TECHNICIAN) Glucose WB/POC 280(H) 70 - 115 mg/dL 03/23/2023 11:21 AM APPLICATION TECHNICIAN [facility] Specimen Type Cap Fingerstick 2022 11:21 AM APPLICATION TECHNICIAN [facility] Blood BLOOD SPECIMEN / Unknown 03/23/2023 11:16 AM APPLICATION TECHNICIAN 03/23/2023 11:21 AM APPLICATION TECHNICIAN Estrella Dunbar MD LAB - POINT OF CARE ORDERABLES [address] [address], [place] [phone] * CT LUMBAR SPINE W CONTRAST (03/23/2023 8:37 AM APPLICATION TECHNICIAN) Anatomical Region Laterality Modality Spine Computed Tomogra phy 03/23/2023 10:5 0 AM APPLICATION TECHNICIAN Impressions 03/23/2023 12:15 PM APPLICATION TECHNICIAN IMPRESSION: 1.Spinal stimulator device is seen with interval, mild increase in fat stranding and soft tissue density in the fat on the right side at L3-L4, adjacent to the lead as described above. These findings suggest an evolving subacute hematoma versus infectious/inflammatory process or developing abscess formation. 2.No acute fracture in the lumbar spine. 3.Advanced degenerative changes of the bilateral SI joints. The report is dictated by Mark Laboy MD (executive vice president) I, Bonifacio Carrillo MD have personally reviewed and interpreted this examination/study. > Interpreting Provider: Bonifacio Carrillo MD on 03/23/2023 12:15 PM Narrative 03/23/2023 12:15 PM APPLICATION TECHNICIAN PROCEDURE: ??CT LUMBAR SPINE W CONTRAST, DATE/TIME OF EXAM: ??03/23/2023 8:38 AM, LOCATION ??[facility] INDICATION: Z96.89: S/P insertion of spinal cord stimulator ADDITIONAL CLINICAL INFORMATION: Ordering Provider Reason For Exam: ??c/f infected spinal cord stimulator Technologist Note: Additional: EXAMINATION: Computed tomography (CT) of the lumbar spine with contrast TECHNIQUE: CT of the lumbar spine was performed with 100 mL of Isovue-370 contrast according to standard protocol, covering T6 to the sacrum. CT dose reduction technique was used, including Automated Exposure Control. COMPARISON: 02/22/2023 CT abdomen pelvis with contrast and CT lumbar spine with contrast. FINDINGS: Small ribs at T12. Redemonstration of a spinal stimulator device within the left subcutaneous tissues approximately at the level of L4-L5 with a lead coursing through the soft tissues and terminates in the midthoracic vertebrae at T7-T8 levels. Fat stranding and a soft tissue density is seen in the right subtendinous fat at L3-L4 level adjacent to the lead measuring 6.6 x 2.4 x 2.6 cm in the TV, AP, and CC dimensions respectively (series 5 image 159; series 8 image 106), mildly increased compared to prior. This may represent an evolving hematoma versus developing abscess. Minimal anterolisthesis of L5 on S1. Otherwise, the alignment appears normal. The mineralization of the bones is normal. Vertebral bodies are normal in height without evidence of acute fracture. Diffuse disc bulges at multiple levels is seen with mild multilevel central canal stenosis. There are varying degrees of mild to advanced facet osteoarthritis with varying degrees of neural foraminal stenosis at multiple levels. Redemonstration of advanced bilateral degenerative changes of the SI joints. A simple renal cyst is seen in the right kidney measuring up to 1.6 cm. There is atherosclerotic ossification of the abdominal aorta and its branch vessels. Procedure Note Bonifacio Carrillo MD - 03/23/2023 PROCEDURE: CT LUMBAR SPINE W CONTRAST, DATE/TIME OF EXAM: 38:38 AM, LOCATION [facility] INDICATION: Z96.89: S/P insertion of spinal cord stimulator ADDITIONAL CLINICAL INFORMATION: Ordering Provider Reason For Exam: c/f infected spinal cord stimulator Technologist Note: Additional: EXAMINATION: Computed tomography (CT) of the lumbar spine with contrast TECHNIQUE: CT of the lumbar spine was performed with 100 mL ofIsovue-370 contrast according to standard protocol, covering T6 to the sacrum. CTdose reduction technique was used, including Automated Exposure Control. COMPARISON: 02/22/2023 CT abdomen pelvis with contrast and CT lumbarspine with contrast. FINDINGS: Small ribs at T12. Redemonstration of a spinal stimulator device within the leftsubcutaneous tissues approximately at the level of L4-L5 with a lead coursing through the soft tissues and terminates in the midthoracic vertebrae at T7-T8 levels. Fat stranding and a soft tissue density is seen in the right subtendinous fat at L3-L4 level adjacent to the lead measuring 6.6 x 2.4x 2.6 cm in the TV, AP, and CC dimensions respectively (series 5 ; series 8 image 106), mildly increased compared to prior. This mayrepresent an evolving hematoma versus developing abscess. Minimal anterolisthesis of L5 on S1. Otherwise, the alignment appears normal. The mineralization of the bones is normal. Vertebral bodies are normal in height without evidence of acute fracture. Diffuse disc bulgesat multiple levels is seen with mild multilevel central canal stenosis.There are varying degrees of mild to advanced facet osteoarthritis withvarying degrees of neural foraminal stenosis at multiple levels. Redemonstrationof advanced bilateral degenerative changes of the SI joints. A simple renal cyst is seen in the right kidney measuring up to 1.6 cm. There is atherosclerotic ossification of the abdominal aorta and itsbranch vessels. IMPRESSION: 1.Spinal stimulator device is seen with interval, mild increase in fat stranding and soft tissue density in the fat on the right side at L3-L4, adjacent to the lead as described above. These findings suggest anevolving subacute hematoma versus infectious/inflammatory process or developing abscess formation. 2.No acute fracture in the lumbar spine. 3.Advanced degenerative changes of the bilateral SI joints. The report is dictated by Mark Laboy MD (executive vice president) I, Bonifacio Carrillo MD have personally reviewed and interpreted this examination/study. > Interpreting Provider: Bonifacio Carrillo MD on 03/23/2023 12:15 PM Estrella Dunbar MD CT ORDERABLES * (ABNORMAL) GLUCOSE - POINT OF CARE (03/23/2023 7:25 AM APPLICATION TECHNICIAN) Glucose WB/POC 156(H) 70 - 115 mg/dL 03/23/2023 8:06 AM APPLICATION TECHNICIAN [facility] Specimen Type Cap Fingerstick 2022 8:06 AM APPLICATION TECHNICIAN [facility] Blood BLOOD SPECIMEN / Unknown 03/23/2023 7:25 AM APPLICATION TECHNICIAN 03/23/2023 8:06 AM APPLICATION TECHNICIAN Estrella Dunbar MD LAB - POINT OF CARE ORDERABLES Performing Organization Address [facility]/State/ZIP Co de Phone Number [facility] [address] [place] [address], [facility] [phone] * (ABNORMAL) GLUCOSE - POINT OF CARE (03/22/2023 7:30 PM APPLICATION TECHNICIAN) Glucose WB/POC 166(H) 70 - 115 mg/dL 03/22/2023 7:35 PM APPLICATION TECHNICIAN [facility] Specimen Type Arterial 03/22/2023 7:35 PM APPLICATION TECHNICIAN [facility] Blood BLOOD SPECIMEN / Unknown 03/22/2023 7:30 PM APPLICATION TECHNICIAN 03/22/2023 7:35 PM APPLICATION TECHNICIAN Estrella Dunbar MD LAB - POINT OF CARE ORDERABLES Performing Organization Address [facility]/ZIP Co de Phone Number [address] [address], [place] [phone] * (ABNORMAL) GLUCOSE - POINT OF CARE (03/22/2023 4:55 PM APPLICATION TECHNICIAN) Glucose WB/POC 199(H) 70 - 115 mg/dL 03/22/2023 7:22 PM APPLICATION TECHNICIAN [facility] Specimen Type Cap Fingerstick 2022 7:22 PM APPLICATION TECHNICIAN [facility] Blood BLOOD SPECIMEN / Unknown 03/22/2023 4:55 PM APPLICATION TECHNICIAN 03/22/2023 7:22 PM APPLICATION TECHNICIAN Estrella Dunbar MD LAB - POINT OF CARE ORDERABLES Performing Organization Address [facility] Co de Phone Number [address] [address], [place] [phone] * (ABNORMAL) GLUCOSE - POINT OF CARE (03/22/2023 11:54 AM APPLICATION TECHNICIAN) Glucose WB/POC 240(H) 70 - 115 mg/dL 03/22/2023 7:22 PM APPLICATION TECHNICIAN [facility] Specimen Type Cap Fingerstick 2022 7:22 PM APPLICATION TECHNICIAN [facility] Blood BLOOD SPECIMEN / Unknown 03/22/2023 11:54 AM APPLICATION TECHNICIAN 03/22/2023 7:22 PM APPLICATION TECHNICIAN Estrella Dunbar MD LAB - POINT OF CARE ORDERABLES Performing Organization Address City/[facility]/ZIP Co de Phone Number [address] [address], [place] [phone] * MAGNESIUM BLOOD (03/22/2023 10:28 AM APPLICATION TECHNICIAN) Magnesium 1.6 1.6 - 2.6 mg/dL 03/22/2023 11:04 AM APPLICATION TECHNICIAN [facility] Blood BLOOD SPECIMEN / Unknown Lab Venipuncture / Unknown 03/22/2023 10:28 AM APPLICATION TECHNICIAN 03/22/2023 10:35 AM [facility] Estrella Dunbar MD LAB - CHEMISTRY ANGEL Herrera Organization Address City/State/ZIP Co de Phone Number [facility] [address] [place] [address], [facility] [phone] * (ABNORMAL) RENAL FUNCTION PANEL (03/22/2023 10:28 AM [facility]) BUN 14 7 - 26 mg/dL 03/22/2023 11:04 AM [facility] Creatinine 0.89 0.56 - 0.96 mg/dL 03/22/2023 11:04 AM [facility] Sodium 137 136 - 145 mmol/L 03/22/2023 11:04 AM [facility] Potassium 4.2 3.5 - 4.5 mmol/L 03/22/2023 11:04 AM [facility] Chloride 100 98 - 107 mmol/L 03/22/2023 11:04 AM [facility] CO2 27 22 - 29 mmol/L 03/22/2023 11:04 AM [facility] Glucose 244(H) 70 - 115 mg/dL 03/22/2023 11:04 AM [facility] Albumin 3.4 3.4 - 5.0 g/dL 03/22/2023 11:04 AM [facility] Calcium 9.8 8.4 - 10.2 mg/dL 03/22/2023 11:04 AM [facility] Phosphorus 3.3 2.9 - 5.1 mg/dL 03/22/2023 11:04 AM [facility] Anion Gap 10 6 - 16 03/22/2023 11:04 AM [facility] BUN/Creatinine Ratio 16 7 - 23 03/22/2023 11:04 AM [facility] Osmolality Calculated 293 275 - 295 mOsm/kg 03/22/2023 11:04 AM [facility] eGFR by CKD-EPI 71(L) >=90 mL/min/1.7 3 m2 03/22/2023 11:04 AM [facility] Blood BLOOD SPECIMEN / Unknown Lab Venipuncture / Unknown 03/22/2023 10:28 AM APPLICATION TECHNICIAN 03/22/2023 10:35 AM APPLICATION TECHNICIAN Estrella Dunbar MD LAB - CHEMISTRY ANGEL SPEARS [facility] [address] [place] [address], [facility] [phone] * (ABNORMAL) CBC W AUTO DIFFERENTIAL (03/22/2023 10:27 AM APPLICATION TECHNICIAN) WBC 9.1 3.5 - 10.5 10? 3 /uL 03/22/2023 10:50 AM [facility] RBC 4.51 3.80 - 5.20 10? 6 /uL 03/22/2023 10:50 AM [facility] Hemoglobin 13.2 12.0 - 15.6 g/dL 03/22/2023 10:50 AM [facility] Hematocrit 41.5 35.0 - 45.0 % 03/22/2023 10:50 AM [facility] MCV 92.0 80.7 - 98.3 fL 03/22/2023 10:50 AM [facility] MCH 29.3 26.7 - 34.0 pg 03/22/2023 10:50 AM [facility] MCHC 31.8 30.8 - 35.9 g/dL 03/22/2023 10:50 AM [facility] RDW-SD 45.5 36.0 - 50.0 fL 03/22/2023 10:50 AM [facility] RDW-CV 13.4 11.2 - 14.8 % 03/22/2023 10:50 AM [facility] Platelet Count 290 150 - 400 10? 3 /uL 03/22/2023 10:50 AM [facility] MPV 10.0 9.4 - 12.9 fL 03/22/2023 10:50 AM [facility] nRBC Absolute 0.00 0 10? 3 /uL 03/22/2023 10:50 AM [facility] nRBC Auto 0.0 0 /100 WBC 03/22/2023 10:50 AM [facility] Neutrophils % 56.2 35.0 - 70.0 % 03/22/2023 10:50 AM APPLICATION TECHNICIAN [facility] Lymphocytes % 30.2 20.0 - 43.0 % 03/22/2023 10:50 AM [facility] Monocytes % 7.5 5.0 - 13.0 % 03/22/2023 10:50 AM [facility] Eosinophils % 5.3 0.0 - 6.0 % 03/22/2023 10:50 AM [facility] Basophil % 0.4 0.0 - 2.0 % 03/22/2023 10:50 AM [facility] Neutrophils Absolute 5.11 1.60 - 7.00 10? 3 /uL 03/22/2023 10:50 AM [facility] Lymphocyte Absolute 2.75 1.10 - 3.90 10? 3 /uL 03/22/2023 10:50 AM [facility] Monocytes Absolute 0.68 0.26 - 1.07 10? 3 /uL 03/22/2023 10:50 AM [facility] Eosinophils Absolute 0.48(H) 0.00 - 0.47 10? 3 /uL 03/22/2023 10:50 AM [facility] Basophils Absolute 0.04 0.00 - 0.08 10? 3 /uL 03/22/2023 10:50 AM [facility] Immature Granulocytes % 0.4 0.0 - 1.0 % 03/22/2023 10:50 AM [facility] Immature Granulocytes Absolute 0.04 03/22/2023 10:50 AM [facility] Blood BLOOD SPECIMEN / Unknown Lab Venipuncture / Unknown 03/22/2023 10:27 AM APPLICATION TECHNICIAN 03/22/2023 10:35 AM [facility] Estrella Dunbar MD LAB - HEMATOLOGY ORD ERABLES [facility] [address] [place] [address], [facility] [phone] * (ABNORMAL) GLUCOSE - POINT OF CARE (03/22/2023 8:46 AM [facility]) Pathologist [facility] Glucose WB/POC 162(H) 70 - 115 mg/dL 03/22/2023 7:22 PM [facility] Specimen Type Cap Fingerstick 2022 7:22 PM APPLICATION TECHNICIAN [facility] Blood BLOOD SPECIMEN / Unknown 03/22/2023 8:46 AM APPLICATION TECHNICIAN 03/22/2023 7:22 PM APPLICATION TECHNICIAN Estrella Dunbar MD LAB - POINT OF CARE ORDERABLES Performing Organization Address City/[facility]/ZIP Co de Phone Number [facility] [address] [place] [address], [place] [phone] * (ABNORMAL) GLUCOSE - POINT OF CARE (03/21/2023 8:25 PM APPLICATION TECHNICIAN) Glucose WB/POC 220(H) 70 - 115 mg/dL 03/21/2023 8:30 PM APPLICATION TECHNICIAN [facility] Specimen Type Cap Fingerstick 2022 8:30 PM APPLICATION TECHNICIAN [facility] Blood BLOOD SPECIMEN / Unknown 03/21/2023 8:25 PM APPLICATION TECHNICIAN 03/21/2023 8:30 PM APPLICATION TECHNICIAN Estrella Dunbar MD LAB - POINT OF CARE ORDERABLES Performing Organization Address City/[facility]/ZIP Co de Phone Number [facility] [address] [place] [address], [place] [phone] * (ABNORMAL) GLUCOSE - POINT OF CARE (03/21/2023 5:17 PM APPLICATION TECHNICIAN) Glucose WB/POC 136(H) 70 - 115 mg/dL 03/21/2023 5:18 PM APPLICATION TECHNICIAN [facility] Specimen Type Cap Fingerstick 2022 5:18 PM APPLICATION TECHNICIAN [facility] Blood BLOOD SPECIMEN / Unknown 03/21/2023 5:17 PM APPLICATION TECHNICIAN 03/21/2023 5:18 PM APPLICATION TECHNICIAN Estrella Dunbar MD LAB - POINT OF CARE ORDERABLES [facility] [address] [place] [address], [place] [phone] * CARDIAC EKG ORDER (03/21/2023 12:44 PM APPLICATION TECHNICIAN) Narrative 03/21/2023 12:44 PM APPLICATION TECHNICIAN Ordered by an unspecified provider. Scanned Document CARDIAC SERVICES ORD ERABLES * (ABNORMAL) GLUCOSE - POINT OF CARE (03/21/2023 12:05 PM APPLICATION TECHNICIAN) Glucose WB/POC 152(H) 70 - 115 mg/dL 03/21/2023 12:06 PM APPLICATION TECHNICIAN [facility] Specimen Type Cap Fingerstick 2022 12:06 PM [facility] Blood BLOOD SPECIMEN / Unknown 03/21/2023 12:05 PM APPLICATION TECHNICIAN 03/21/2023 12:06 PM APPLICATION TECHNICIAN Estrella Dunbar MD LAB - POINT OF CARE ORDERABLES [address] [address], [place] [phone] * (ABNORMAL) GLUCOSE - POINT OF CARE (03/21/2023 8:03 AM APPLICATION TECHNICIAN) Glucose WB/POC 169(H) 70 - 115 mg/dL 03/21/2023 12:06 PM APPLICATION TECHNICIAN [facility] Specimen Type Cap Fingerstick 2022 12:06 PM [facility] Blood BLOOD SPECIMEN / Unknown 03/21/2023 8:03 AM APPLICATION TECHNICIAN 03/21/2023 12:06 PM APPLICATION TECHNICIAN Estrella Dunbar MD LAB - POINT OF CARE ORDERABLES [address] [address], [place] [phone] * (ABNORMAL) GLUCOSE - POINT OF CARE (03/20/2023 11:26 PM APPLICATION TECHNICIAN) Glucose WB/POC 162(H) 70 - 115 mg/dL 03/20/2023 11:31 PM [facility] Specimen Type Cap Fingerstick 2022 11:31 PM APPLICATION TECHNICIAN [facility] Blood BLOOD SPECIMEN / Unknown 03/20/2023 11:26 PM APPLICATION TECHNICIAN 03/20/2023 11:31 PM APPLICATION TECHNICIAN Rosa Torres MD LAB - POINT OF CARE ORDERABLES [address] [address], [place] [phone] * (ABNORMAL) GLUCOSE - POINT OF CARE (03/20/2023 6:28 PM APPLICATION TECHNICIAN) Glucose WB/POC 187(H) 70 - 115 mg/dL 03/20/2023 6:31 PM APPLICATION TECHNICIAN [facility] Specimen Type Cap Fingerstick 2022 6:31 PM APPLICATION TECHNICIAN [facility] Blood BLOOD SPECIMEN / Unknown 03/20/2023 6:28 PM APPLICATION TECHNICIAN 03/20/2023 6:31 PM APPLICATION TECHNICIAN Estrella Dunbar MD LAB - POINT OF CARE ORDERABLES Performing Organization Address City/[facility]/ZIP Co de Phone Number [address] [address], [place] [phone] * (ABNORMAL) GLUCOSE - POINT OF CARE (03/20/2023 11:33 AM APPLICATION TECHNICIAN) Glucose WB/POC 171(H) 70 - 115 mg/dL 03/20/2023 1:51 PM APPLICATION TECHNICIAN [facility] Specimen Type Cap Fingerstick 2022 1:51 PM APPLICATION TECHNICIAN [facility] Blood BLOOD SPECIMEN / Unknown 03/20/2023 11:33 AM APPLICATION TECHNICIAN 03/20/2023 1:51 PM APPLICATION TECHNICIAN Estrella Dunbar MD LAB - POINT OF CARE ORDERABLES [address] [address], [place] [phone] * (ABNORMAL) GLUCOSE - POINT OF CARE (03/20/2023 9:22 AM APPLICATION TECHNICIAN) Glucose WB/POC 147(H) 70 - 115 mg/dL 03/20/2023 9:23 AM [facility] Specimen Type Cap Fingerstick 2022 9:23 AM [facility] Blood BLOOD SPECIMEN / Unknown 03/20/2023 9:22 AM APPLICATION TECHNICIAN 03/20/2023 9:23 AM APPLICATION TECHNICIAN Estrella Dunbar MD LAB - POINT OF CARE ORDERABLES [facility] [address] [place] [address], [facility] [phone] * (ABNORMAL) CBC W/O DIFFERENTIAL (03/20/2023 3:55 AM APPLICATION TECHNICIAN) WBC 10.2 3.5 - 10.5 10? 3 /uL 03/20/2023 4:26 AM [facility] RBC 3.98 3.80 - 5.20 10? 6 /uL 03/20/2023 4:26 AM [facility] Hemoglobin 11.3(L) 12.0 - 15.6 g/dL 03/20/2023 4:26 AM [facility] Hematocrit 36.3 35.0 - 45.0 % 03/20/2023 4:26 AM [facility] MCV 91.2 80.7 - 98.3 fL 03/20/2023 4:26 AM [facility] MCH 28.4 26.7 - 34.0 pg 03/20/2023 4:26 AM [facility] MCHC 31.1 30.8 - 35.9 g/dL 03/20/2023 4:26 AM [facility] RDW-SD 44.9 36.0 - 50.0 fL 03/20/2023 4:26 AM [facility] RDW-CV 13.3 11.2 - 14.8 % 03/20/2023 4:26 AM [facility] Platelet Count 243 150 - 400 10? 3 /uL 03/20/2023 4:26 AM [facility] MPV 9.9 9.4 - 12.9 fL 03/20/2023 4:26 AM [facility] nRBC Absolute 0.00 0 10? 3 /uL 03/20/2023 4:26 AM [facility] nRBC Auto 0.0 0 /100 WBC 03/20/2023 4:26 AM APPLICATION TECHNICIAN [facility] Blood BLOOD SPECIMEN / Unknown Venipuncture / Unknown 03/20/2023 3:55 AM APPLICATION TECHNICIAN 03/20/2023 4:11 AM APPLICATION TECHNICIAN Coco Harris MD LAB - HEMATOLOGY ORD NEGRITA Performing Organization Address City/[facility]/ZIP Co de Phone Number [address] [address], [facility] [phone] * PHOSPHORUS BLOOD (03/20/2023 3:55 AM APPLICATION TECHNICIAN) Phosphorus 2.9 2.9 - 5.1 mg/dL 03/20/2023 4:41 AM APPLICATION TECHNICIAN [facility] Blood BLOOD SPECIMEN / Unknown Venipuncture / Unknown 03/20/2023 3:55 AM APPLICATION TECHNICIAN 03/20/2023 4:11 AM APPLICATION TECHNICIAN Coco Harris MD LAB - CHEMISTRY ORDNicholas SPEARS Performing Organization Address City/[facility]/ZIP Co de Phone Number [address] [address], [facility] [phone] * MAGNESIUM BLOOD (03/20/2023 3:55 AM APPLICATION TECHNICIAN) Magnesium 1.7 1.6 - 2.6 mg/dL 03/20/2023 4:41 AM APPLICATION TECHNICIAN [facility] Blood BLOOD SPECIMEN / Unknown Venipuncture / Unknown 03/20/2023 3:55 AM APPLICATION TECHNICIAN 03/20/2023 4:11 AM APPLICATION TECHNICIAN Coco Harris MD LAB - CHEMISTRY ORDNicholas SPEARS [address] [address], [facility] [phone] * (ABNORMAL) COMPREHENSIVE METABOLIC PANEL (03/20/2023 3:55 AM APPLICATION TECHNICIAN) BUN 9 7 - 26 mg/dL 03/20/2023 4:41 AM [facility] Creatinine 0.71 0.56 - 0.96 mg/dL 03/20/2023 4:41 AM [facility] Sodium 138 136 - 145 mmol/L 03/20/2023 4:41 AM [facility] Potassium 4.0 3.5 - 4.5 mmol/L 03/20/2023 4:41 AM [facility] Chloride 104 98 - 107 mmol/L 03/20/2023 4:41 AM [facility] CO2 24 22 - 29 mmol/L 03/20/2023 4:41 AM [facility] Glucose 212(H) 70 - 115 mg/dL 03/20/2023 4:41 AM [facility] Calcium 8.8 8.4 - 10.2 mg/dL 03/20/2023 4:41 AM [facility] Protein Total 7.1 6.0 - 8.3 g/dL 03/20/2023 4:41 AM [facility] Albumin 2.9(L) 3.4 - 5.0 g/dL 03/20/2023 4:41 AM [facility] Bilirubin Total 0.5 0.2 - 1.2 mg/dL 03/20/2023 4:41 AM [facility] Alkaline Phosphatase 65 40 - 150 U/L 03/20/2023 4:41 AM [facility] ALT 14 5 - 55 U/L 03/20/2023 4:41 AM [facility] AST 14 5 - 34 U/L 03/20/2023 4:41 AM [facility] Anion Gap 10 6 - 16 03/20/2023 4:41 AM [facility] BUN/Creatinine Ratio 13 7 - 23 03/20/2023 4:41 AM [facility] Osmolality Calculated 291 275 - 295 mOsm/kg 03/20/2023 4:41 AM [facility] Albumin/Globulin Ratio 0.7(L) 1.1 - 2.3 03/20/2023 4:41 AM [facility] eGFR by CKD-EPI >90 >=90 mL/min/1.7 3 m2 03/20/2023 4:41 AM [facility] Blood BLOOD SPECIMEN / Unknown Venipuncture / Unknown 03/20/2023 3:55 AM APPLICATION TECHNICIAN 03/20/2023 4:11 AM APPLICATION TECHNICIAN Coco Harris MD LAB - CHEMISTRY ANGEL SPEARS [facility] [address] [place] [address], [facility] [phone] * TROPONIN-I HIGH SENSITIVE REFLEX 1HOUR (03/19/2023 7:36 PM APPLICATION TECHNICIAN) [facility] Troponin I High Sensitive <3 <=14 ng/L 03/19/2023 8:19 PM APPLICATION TECHNICIAN [facility] Delta Troponin I HS 03/19/2023 8:19 PM APPLICATION TECHNICIAN [facility] Comment:Delta value intentio yissel not calculated. Baseline to 1 hour specimen collection interval exceeded. Blood BLOOD SPECIMEN / Unknown Venipuncture / Unknown 03/19/2023 7:36 PM APPLICATION TECHNICIAN 03/19/2023 7:44 PM APPLICATION TECHNICIAN Sisi Ricks PA-C LAB - CHEMISTRY OR DERABLES Performing Organization Address City/[facility]/ZIP Co de Phone Number [address] [address], [facility] [phone] * EKG 12-LEAD (03/19/2023 1:57 PM APPLICATION TECHNICIAN) [facility] Ventricular Rate 79 BPM [facility] Atrial Rate 79 BPM [facility] MUSE P-R Interval 132 ms [facility] MUSE QRS Duration ms 82 ms [facility] MUSE Q-T Interval ms 378 ms [facility] MUSE QTC Calculation (Bezet) 433 ms [facility] MUSE Calculated P [place] 13 degrees [facility] MUSE Calculated R [place] 12 degrees [facility] Calculated T [place] 45 degrees [facility]USE Interpretation EKG NORMAL SINUS RHYTHM NORMAL ECG WHEN COMPARED WITH ECG OF 21-FEB-2023 18:42, NONSPECIFIC T WAVE ABNORMALITY NO LONGER EVIDENT IN ANTERIOR LEADS Confirmed by FELIPE ??, BENJI ([id number]) on 03/19/2023 9:14:45 PM [facility] MUSE 03/19/2023 1:57 PM APPLICATION TECHNICIAN 03/19/2023 9:14 PM APPLICATION TECHNICIAN Sisi Ricks PA-C ECG ORDERABLES [facility] * (ABNORMAL) CULTURE URINE (03/19/2023 1:50 PM APPLICATION TECHNICIAN) Culture Urine >100,000 CFU/mL Escherichia coli(A) TERRANCE 03/21/2023 7:[address] [facility] Urine URINE SPECIMEN OBTAINED BY CLEAN CATCH PROCEDURE / Unknown Collection / Unknown 03/19/2023 1:50 PM APPLICATION TECHNICIAN 03/19/2023 3:38 PM APPLICATION TECHNICIAN Narrative Organism Antibiotic Method Susceptibility Escherichia coli [...] UTIs, use alternative cefazolin susceptibility result above. Sisi Ricks PA-C LAB - MICROBIOLOGY ORDERABLES [facility] [address] [place] [address], [facility] [phone] * (ABNORMAL) URINE MICROSCOPIC ONLY REFLEX TO CULTURE (03/19/2023 1:50 PM APPLICATION TECHNICIAN) Reflex Status Culture to follow 03/19/2023 3:38 PM APPLICATION TECHNICIAN [facility] RBC UA 3-5 None Seen, 0-2, 3-5 /HPF 03/19/2023 3:38 PM APPLICATION TECHNICIAN [facility] WBC UA 11-20(A) None Seen, 0-5 /HPF 03/19/2023 3:38 PM APPLICATION TECHNICIAN [facility] Bacteria UA Trace(A) None /HPF 03/19/2023 3:38 PM APPLICATION TECHNICIAN [facility] Squamous Epithelial Cells UA 0-2 None Seen, 0-2, 3-5 /HPF 03/19/2023 3:38 PM APPLICATION TECHNICIAN [facility] Mucus UA 1+ /LPF 03/19/2023 3:38 PM APPLICATION TECHNICIAN [facility] Urine URINE SPECIMEN OBTAINED BY CLEAN CATCH PROCEDURE / Unknown Collection / Unknown 03/19/2023 1:50 PM APPLICATION TECHNICIAN 03/19/2023 1:55 PM APPLICATION TECHNICIAN [facility] - 03/19/2023 3:38 PM APPLICATION TECHNICIAN Sisi Ricks PA-C LAB - URINALYSIS O RDERABLES [facility] [address] [place] [address], [place] [phone] * SARS-COV-2 (COVID-19) RAPID (03/19/2023 1:50 PM APPLICATION TECHNICIAN) COVID-19 PCR Not detected Not detected 03/19/20 2:29 PM APPLICATION TECHNICIAN [facility] Microbiology SPECIMEN FROM NASOPHARYNGEAL STRUCTURE / Unknown Collection / Unknown 03/19/2023 1:50 PM APPLICATION TECHNICIAN 03/19/2023 1:55 PM APPLICATION TECHNICIAN Narrative [facility] - 03/19/2023 2:29 PM APPLICATION TECHNICIAN The [employer] SARS-COV-2 has been authorized by [...] Sisi Ricks PA-C LAB - MICROBIOLOGY ORDERABLES [address] [address], [facility] [phone] * TROPONIN-I HIGH SENSITIVE BASELINE + 1HR (03/19/2023 1:50 PM APPLICATION TECHNICIAN) Troponin I High Sensitive <3 <=14 ng/L 03/19/2023 2:32 PM APPLICATION TECHNICIAN [facility] Blood BLOOD SPECIMEN / Unknown Venipuncture / Unknown 03/19/2023 1:50 PM APPLICATION TECHNICIAN 03/19/2023 1:59 PM APPLICATION TECHNICIAN Sisi Ricks PA-C LAB - CHEMISTRY OR DERABLES [address] [address], [facility] [phone] * (ABNORMAL) URINALYSIS REFLEX MICROSCOPIC REFLEX CULTURE (03/19/2023 1:50 PM APPLICATION TECHNICIAN) Color UA Yellow Straw, Yellow 03/19/2023 2:09 PM [facility] Clarity UA Clear Clear 03/19/2023 2:09 PM [facility] Specific [place] UA 1.014 1.005 - 1.030 03/19/2023 2:09 PM [facility] pH UA 6.0 5.0 - 8.0 pH 03/19/2023 2:09 PM [facility] Protein UA Negative Negative 03/19/2023 2:09 PM [facility] Glucose UA 3+(A) Negative 03/19/2023 2:09 PM [facility] Ketone UA Negative Negative 03/19/2023 2:09 PM [facility] Bilirubin UA Negative Negative 03/19/2023 2:09 PM [facility] Blood UA 1+(A) Negative 03/19/2023 2:09 PM [facility] Nitrite UA Negative Negative 03/19/2023 2:09 PM [facility] Leukocyte Esterase Trace(A) Negative 03/19/2023 2:09 PM [facility] Urobilinogen UA Negative Negative mg/dL 03/19/2023 2:09 PM [facility] Urine URINE SPECIMEN OBTAINED BY CLEAN CATCH PROCEDURE / Unknown Collection / Unknown 03/19/2023 1:50 PM APPLICATION TECHNICIAN 03/19/2023 1:55 PM APPLICATION TECHNICIAN [facility] - 03/19/2023 2:09 PM APPLICATION TECHNICIAN Sisi Ricks PA-C LAB - URINALYSIS O RDERABLES Performing Organization Address City/State/[facility] Co de Phone Number [facility] [address] [place] [id number], [facility] [phone] * (ABNORMAL) C-REACTIVE PROTEIN (03/19/2023 1:50 PM APPLICATION TECHNICIAN) C-Reactive Protein 3.0(H) <=0.5 mg/dL 03/19/2023 2:45 PM [facility] Blood BLOOD SPECIMEN / Unknown Venipuncture / Unknown 03/19/2023 1:50 PM APPLICATION TECHNICIAN 03/19/2023 1:55 PM APPLICATION TECHNICIAN Sisi Ricks PA-C LAB - CHEMISTRY OR DERABLES Performing Organization Address City/[facility]/ZIP Co de Phone Number [address] [phone], [facility] [phone] * (ABNORMAL) ERYTHROCYTE SEDIMENTATION RATE (03/19/2023 1:50 PM APPLICATION TECHNICIAN) Erythrocyte Sedimentation Rate Westergren 101(H) 0 - 30 MM/HR 03/19/2023 2:08 PM [facility] Blood BLOOD SPECIMEN / Unknown Venipuncture / Unknown 03/19/2023 1:50 PM APPLICATION TECHNICIAN 03/19/2023 1:59 PM APPLICATION TECHNICIAN Sisi Ricks PA-C LAB - HEMATOLOGY O RDERABLES Performing Organization Address [facility]/ZIP Co de Phone Number [address] [address], [facility] [phone] * (ABNORMAL) COMPREHENSIVE METABOLIC PANEL (03/19/2023 1:50 PM APPLICATION TECHNICIAN) BUN 10 7 - 26 mg/dL 03/19/2023 2:26 PM [facility] Creatinine 0.75 0.56 - 0.96 mg/dL 03/19/2023 2:26 PM [facility] Sodium 138 136 - 145 mmol/L 03/19/2023 2:26 PM [facility] Potassium 3.8 3.5 - 4.5 mmol/L 03/19/2023 2:26 PM [facility] Chloride 103 98 - 107 mmol/L 03/19/2023 2:26 PM [facility] CO2 26 22 - 29 mmol/L 03/19/2023 2:26 PM [facility] Glucose 227(H) 70 - 115 mg/dL 03/19/2023 2:26 PM [facility] Calcium 9.6 8.4 - 10.2 mg/dL 03/19/2023 2:26 PM [facility] Protein Total 8.4(H) 6.0 - 8.3 g/dL 03/19/2023 2:26 PM [facility] Albumin 3.4 3.4 - 5.0 g/dL 03/19/2023 2:26 PM [facility] Bilirubin Total 0.6 0.2 - 1.2 mg/dL 03/19/2023 2:26 PM [facility] Alkaline Phosphatase 75 40 - 150 U/L 03/19/2023 2:26 PM [facility] ALT 17 5 - 55 U/L 03/19/2023 2:26 PM [facility] AST 16 5 - 34 U/L 03/19/2023 2:26 PM [facility] Anion Gap 9 6 - 16 03/19/2023 2:26 PM [facility] BUN/Creatinine Ratio 13 7 - 23 03/19/2023 2:26 PM [facility] Osmolality Calculated 292 275 - 295 mOsm/kg 03/19/2023 2:26 PM [facility] Albumin/Globulin Ratio 0.7(L) 1.1 - 2.3 03/19/2023 2:26 PM [facility] eGFR by CKD-EPI 88(L) >=90 mL/min/1.7 3 m2 03/19/2023 2:26 PM [facility] Blood BLOOD SPECIMEN / Unknown Venipuncture / Unknown 03/19/2023 1:50 PM APPLICATION TECHNICIAN 03/19/2023 1:59 PM [facility] Sisi Ricks PA-C LAB - CHEMISTRY OR DERABLES Performing Organization Address [facility] Co de Phone Number [facility] [address] [place] [phone] [phone] * CBC W AUTO DIFFERENTIAL (03/19/2023 1:50 PM APPLICATION TECHNICIAN) WBC 9.2 3.5 - 10.5 10? 3 /uL 03/19/2023 2:02 PM [facility] RBC 4.34 3.80 - 5.20 10? 6 /uL 03/19/2023 2:02 PM [facility] Hemoglobin 12.8 12.0 - 15.6 g/dL 03/19/2023 2:02 PM [facility] Hematocrit 39.9 35.0 - 45.0 % 03/19/2023 2:02 PM [facility] MCV 91.9 80.7 - 98.3 fL 03/19/2023 2:02 PM [facility] MCH 29.5 26.7 - 34.0 pg 03/19/2023 2:02 PM [facility] MCHC 32.1 30.8 - 35.9 g/dL 03/19/2023 2:02 PM [facility] RDW-SD 45.5 36.0 - 50.0 fL 03/19/2023 2:02 PM [facility] RDW-CV 13.3 11.2 - 14.8 % 03/19/2023 2:02 PM [facility] Platelet Count 249 150 - 400 10? 3 /uL 03/19/2023 2:02 PM [facility] MPV 9.9 9.4 - 12.9 fL 03/19/2023 2:02 PM [facility] nRBC Absolute 0.00 0 10? 3 /uL 03/19/2023 2:02 PM [facility] nRBC Auto 0.0 0 /100 WBC 03/19/2023 2:02 PM [facility] Neutrophils % 61.4 35.0 - 70.0 % 03/19/2023 2:02 PM [facility] Lymphocytes % 27.5 20.0 - 43.0 % 03/19/2023 2:02 PM [facility] Monocytes % 7.5 5.0 - 13.0 % 03/19/2023 2:02 PM [facility] Eosinophils % 2.6 0.0 - 6.0 % 03/19/2023 2:02 PM [facility] Basophil % 0.3 0.0 - 2.0 % 03/19/2023 2:02 PM [facility] Neutrophils Absolute 5.65 1.60 - 7.00 10? 3 /uL 03/19/2023 2:02 PM [facility] Lymphocyte Absolute 2.53 1.10 - 3.90 10? 3 /uL 03/19/2023 2:02 PM [facility] Monocytes Absolute 0.69 0.26 - 1.07 10? 3 /uL 03/19/2023 2:02 PM [facility] Eosinophils Absolute 0.24 0.00 - 0.47 10? 3 /uL 03/19/2023 2:02 PM [facility] Basophils Absolute 0.03 0.00 - 0.08 10? 3 /uL 03/19/2023 2:02 PM [facility] Immature Granulocytes % 0.7 0.0 - 1.0 % 03/19/2023 2:02 PM [facility] Immature Granulocytes Absolute 0.06 03/19/2023 2:02 PM [facility] Blood BLOOD SPECIMEN / Unknown Venipuncture / Unknown 03/19/2023 1:50 PM APPLICATION TECHNICIAN 03/19/2023 1:59 PM [facility] Sisi Ricks PA-C LAB - HEMATOLOGY O RDERABLES Performing Organization Address City/State/[facility] Co de Phone Number [facility] [address] [place] [address], [facility] [phone] documented in this encounter Visit Diagnoses Diagnosis Chronic left-sided low back pain, unspecified whether sciatica present- Primary Weakness Other malaise and fatigue Chronic left-sided low back pain, unspecified whether sciatica present S/P placement of nerve stimulator Acute cystitis without hematuria Acute cystitis Rash Rash and other nonspecific skin eruption S/P insertion of spinal cord stimulator Weakness Other malaise and fatigue S/P placement of nerve stimulator Type 2 diabetes mellitus without complication (CMS/HCC) Essential hypertension Chronic anticoagulation Encounter for long-term (current) use of anticoagulants Anxiety and depression Dysthymic disorder Multiple subsegmental pulmonary emboli without acute cor pulmonale (CMS/HCC) Acute cystitis without hematuria Acute cystitis Breast cancer (HCC) Malignant neoplasm of breast (female), unspecified site Restless legs syndrome (RLS) Rash Rash and other nonspecific skin eruption documented in this encounter Administered Medications Inactive Administered Medications - up to 3 most recent administrations Medication Order MAR Action Action Date Dose Rate Site 0.9% NaCl injection 1-10 mL 1-10 mL, Intracatheter, PRN, Other, peripheral line flush, Starting on 03/20/23 at 0335, Until Valeri 03/23/23 at 1914, Flush peripheral IV catheter with 1-10 mL of normal saline before and after medications and prn to clear blood from the line or to verify patency. 0.9% NaCl injection 3 mL 3 mL, Intracatheter, EVERY 8 HOURS, First dose on Mon03/20/23 at 0600, Until Discontinued, Flush peripheral IV catheter with 3 mL of normal saline every 8 hours. $ Given 03/23/2023 1:08 PM APPLICATION TECHNICIAN 3 mL $ Given 03/22/2023 9:11 PM APPLICATION TECHNICIAN 3 mL $ Given 03/21/2023 9:27 PM APPLICATION TECHNICIAN 3 mL acetaminophen (Tylenol) tablet 1,000 mg 1,000 mg, Oral, 3 TIMES DAILY, First dose on Mon03/20/23 at 1030, Until Discontinued, Patient preference for lesser PRN pain meds may be honored when the patient requests a less strong medication, a lower dose, or a less intrusive route of administration when the lesser drug, dose and route have been ordered for the patient. This patient request must be documented in the MAR. $ Given 03/22/2023 3:45 PM APPLICATION TECHNICIAN 1,000 mg $ Given 03/22/2023 8:44 AM APPLICATION TECHNICIAN 1,000 mg $ Given 03/21/2023 8:13 PM APPLICATION TECHNICIAN 1,000 mg amitriptyline (Elavil) tablet 25 mg 25 mg, Oral, AT BEDTIME, First dose on Mon03/20/23 at 2100, Until Discontinued $ Given 03/22/2023 8:10 PM APPLICATION TECHNICIAN 25 mg $ Given 03/21/2023 8:13 PM APPLICATION TECHNICIAN 25 mg $ Given 03/20/2023 9:41 PM APPLICATION TECHNICIAN 25 mg cyclobenzaprine (Flexeril) tablet 10 mg 10 mg, Oral, NOW, 1 dose, On Mon03/20/23 at 0215 $ Given 03/20/2023 2:20 AM APPLICATION TECHNICIAN 10 mg dextrose 10 % IV bolus 12.5 g, at 468.75 mL/hr, Intravenous, PRN, Other, Bedside Glucose less than 70 mg/dL -If NOT able to eat and/or NPO and with IV Access, Starting on Mon03/20/23 at 0340, Until Valeri 03/23/23 at 1914, If NOT able to eat and/or NPO [...] NPO and with IV Access, Starting on Mon03/20/23 at 0340, Until Mon03/23/23 at 1914, If NOT able to eat and/or NPO [...] PROVIDER OF HYPOGLYCEMIC EVENT. diphenhydrAMINE (Benadryl) capsule 50 mg 50 mg, Oral, EVERY 6 HOURS PRN, Itching, Starting on Mon03/20/23 at 1828, Until Mon03/23/23 at 1145 $ Given 03/22/2023 3:45 PM APPLICATION TECHNICIAN 50 mg $ Given 03/22/2023 7:01 AM APPLICATION TECHNICIAN 50 mg $ Given 03/21/2023 1:11 PM APPLICATION TECHNICIAN 50 mg diphenhydrAMINE (Benadryl) capsule 50 mg 50 mg, Oral, EVERY 6 HOURS PRN, Itching, Starting on Mon03/23/23 at 1145, Until Mon03/23/23 at 1914 $ Given 03/23/2023 12:16 PM APPLICATION TECHNICIAN 50 mg exemestane (Aromasin) tablet 25 mg 25 mg, Oral, DAILY, First dose on Mon03/20/23 at 0900, Until Discontinued $ Given 03/23/2023 9:25 AM APPLICATION TECHNICIAN 25 mg $ Given 03/22/2023 10:20 AM APPLICATION TECHNICIAN 25 mg $ Given 03/21/2023 9:16 AM APPLICATION TECHNICIAN 25 mg glucagon (Glucagen) injection 1 mg 1 mg, Subcutaneous, PRN, Bedside Glucose less than 70 mg/dL - If NOT able to eat and/or NPO and withOUT IV Access, Starting on Mon03/20/23 at 0340, Until Mon03/23/23 at 191, If NOT able to eat and/or NPO [...] does not have swallowing difficulties, Starting on Mon03/20/23 at 0340, Until Mon03/23/23 at 191, If able to eat and can swallow [...] does not have swallowing difficulties, Starting on Mon03/20/23 at 0340, Until Mon03/23/23 at 191, If able to eat and is better [...] does not have swallowing difficulties, Starting on Mon03/20/23 at 0340, Until Mon03/23/23 at 1914, If able to eat and does not [...] 12.5 mg, Oral, DAILY, First dose on Mon03/20/23 at 0900, Until Discontinued $ Given 03/23/2023 9:25 AM APPLICATION TECHNICIAN 12.5 mg $ Given 03/22/2023 8:44 AM APPLICATION TECHNICIAN 12.5 mg $ Given 03/21/2023 9:11 AM APPLICATION TECHNICIAN 12.5 mg HYDROcodone-acetaminophen ([place]) 5-325 MG tablet 1 tablet 1 tablet, Oral, NOW, 1 dose, On Mon03/19/23 at 2300, Patient preference for lesser PRN pain meds may be honored when the patient requests a less strong medication, a lower dose, or a less intrusive route of administration when the lesser drug, dose and route have been ordered for the patient. This patient request must be documented in the MAR. $ Given 03/19/2023 11:18 PM APPLICATION TECHNICIAN 1 tablet hydrocortisone (Hytone) 1 % cream Topical, 2 TIMES DAILY, First dose on Mon03/21/23 at 1300, Until Discontinued, Apply to area around left buttock $ Given 03/23/2023 9:28 AM APPLICATION TECHNICIAN $ Given 03/22/2023 8:10 PM APPLICATION TECHNICIAN $ Given 03/22/2023 10:20 AM APPLICATION TECHNICIAN HYDROmorphone (Dilaudid) injection 0.4 mg 0.4 mg, Intravenous, Once, 1 dose, On Mon03/20/23 at 0300, Patient preference for lesser PRN pain meds may be honored when the patient requests a less strong medication, a lower dose, or a less intrusive route of administration when the lesser drug, dose and route have been ordered for the patient. This patient request must be documented in the MAR. $ Given 03/20/2023 2:54 AM APPLICATION TECHNICIAN 0.4 m g HYDROmorphone (Dilaudid) injection 0.4 mg 0.4 mg, Intravenous, EVERY 4 HOURS PRN, Severe Pain, for breathrough pain, Starting on Mon03/20/23 at 0359, Until Mon03/20/23 at 1736, Patient preference for lesser PRN pain meds may be honored when the patient requests a less strong medication, a lower dose, or a less intrusive route of administration when the lesser drug, dose and route have been ordered for the patient. This patient request must be documented in the MAR. $ Given 03/20/2023 1:48 PM APPLICATION TECHNICIAN 0.4 mg $ Given 03/20/2023 8:28 AM APPLICATION TECHNICIAN 0.4 mg HYDROmorphone (Dilaudid) injection 0.4 mg 0.4 mg, Intravenous, EVERY 4 HOURS PRN, for breathrough pain not controlled with PO, Starting on Mon03/20/23 at 1735, Until Valeri 03/23/23 at 1914, Patient preference for lesser PRN pain meds may be honored when the patient requests a less strong medication, a lower dose, or a less intrusive route of administration when the lesser drug, dose and route have been ordered for the patient. This patient request must be documented in the MAR. $ Given 03/22/2023 10:36 PM APPLICATION TECHNICIAN 0.4 mg $ Given 03/21/2023 5:36 PM APPLICATION TECHNICIAN 0.4 mg $ Given 03/21/2023 7:22 AM APPLICATION TECHNICIAN 0.4 mg hydrOXYzine HCl (Atarax) tablet 25 mg 25 mg, Oral, 3 TIMES DAILY PRN, Itching, Starting on Mon03/20/23 at 0958, Until Valeri 03/23/23 at 1914 $ Given 03/23/2023 5:08 PM APPLICATION TECHNICIAN 25 mg $ Given 03/23/2023 9:24 AM APPLICATION TECHNICIAN 25 mg $ Given 03/22/2023 10:42 PM APPLICATION TECHNICIAN 25 mg hydrOXYzine HCl (Atarax) tablet 25 mg 25 mg, Oral, Once, 1 dose, On Mon03/22/23 at 1645 $ Given 03/22/2023 4:42 PM APPLICATION TECHNICIAN 25 mg hydrOXYzine HCl (Atarax) tablet 50 mg 50 mg, Oral, NOW, 1 dose, On 11/27/23 at 0015 $ Given 03/20/2023 12:47 AM APPLICATION TECHNICIAN 50 mg insulin aspart (NovoLOG) pen 0-12 Units 0-12 Units, Subcutaneous, 3 TIMES DAILY WITH MEALS, First dose on Mon03/20/23 at 0800, Until Discontinued, Standard Dose: Correction [...] give at the same time. $ Given 03/23/2023 5:21 PM APPLICATION TECHNICIAN 2 Units Right Arm $ Given 03/23/2023 12:17 PM APPLICATION TECHNICIAN 8 Units R ight Arm $ Given 03/23/2023 9:27 AM APPLICATION TECHNICIAN 10 Units Ri ght Arm insulin aspart (NovoLOG) pen 12 Units 12 Units, Subcutaneous, 3 TIMES DAILY WITH MEALS, First dose on Mon03/20/23 at 0800, Until Discontinued, MEALTIME INSULIN Hold MEALTIME insulin if patient is NPO or eating less than 50% of meals. -OR- if carb intake for the meal is less than 30 grams. $ Given 03/21/2023 12:21 PM APPLICATION TECHNICIAN 12 Units Abd Right Upper Quadrant $ Given 03/21/2023 9:58 AM APPLICATION TECHNICIAN 12 Units Le ft Arm $ Given 03/20/2023 11:33 AM APPLICATION TECHNICIAN 12 Units A bdominal Tissue insulin aspart (NovoLOG) pen 8 Units 8 Units, Subcutaneous, 3 TIMES DAILY WITH MEALS, First dose (after last modification) on Mon03/21/23 at 1800, Until Discontinued, MEALTIME INSULIN Hold MEALTIME insulin if patient is NPO or eating less than 50% of meals. -OR- if carb intake for the meal is less than 30 grams. $ Given 03/23/2023 5:21 PM APPLICATION TECHNICIAN 8 Units Right Arm $ Given 03/23/2023 12:17 PM APPLICATION TECHNICIAN 8 Units R ight Arm $ Given 03/23/2023 9:27 AM APPLICATION TECHNICIAN 8 Units Ri ght Arm insulin glargine (Lantus) pen 5 Units 5 Units, Subcutaneous, AT BEDTIME, First dose on Mon03/21/23 at 2100, Until Discontinued, ............. DO NOT HOLD even if patient is NPO Consider calling physician for dose reduction if patient is made NPO. Body mass index is 51.58 kg/m??. . WASTE DISPOSAL INSTRUCTIONS: Black Bin Disposal required. $ Given 03/22/2023 8:57 PM APPLICATION TECHNICIAN 5 Units Right Arm $ Given 03/21/2023 9:27 PM APPLICATION TECHNICIAN 5 Units Ri ght Arm iopamidol (Isovue 370) 76 % contrast Intravenous, CONTRAST ONCE, Starting on Mon03/23/23 at 0822, Until Mon03/23/23 at 191 $ Given - Contrast 03/23/2023 8:22 AM APPLICATION TECHNICIAN 100 mL methocarbamol (Robaxin) tablet 500 mg 500 mg, Oral, EVERY 6 HOURS PRN, Muscle Spasms, Starting on Mon03/20/23 at 1737, Until Mon03/23/23 at 1914 $ Given 03/22/2023 7:04 PM APPLICATION TECHNICIAN 500 mg $ Given 03/21/2023 8:13 PM APPLICATION TECHNICIAN 500 mg $ Given 03/21/2023 1:11 PM APPLICATION TECHNICIAN 500 mg nitrofurantoin monohyd macro crystals (Macrobid) capsule 100 mg 100 mg, Oral, 2 TIMES DAILY, First dose on Mon03/20/23 at 1115, Until Discontinued, Indication for anti-infective therapy: Suspected infection, Site of anti-infective therapy: Urine/Genitourinary $ Given 03/23/2023 9:25 AM APPLICATION TECHNICIAN 100 mg $ Given 03/22/2023 8:10 PM APPLICATION TECHNICIAN 100 mg $ Given 03/22/2023 10:20 AM APPLICATION TECHNICIAN 100 mg ondansetron (disintegrating) (Zofran ODT) tablet 4 mg 4 mg, Oral, EVERY 6 HOURS PRN, Nausea/Vomiting, Starting on Mon03/20/23 at 0337, Until Mon03/23/23 at 1914, Dissolved orally on tongue $ Given 03/21/2023 12:26 PM APPLICATION TECHNICIAN 4 mg $ Given 03/20/2023 1:48 PM APPLICATION TECHNICIAN 4 mg ondansetron (Zofran) injection 4 mg 4 mg, Intravenous, EVERY 6 HOURS PRN, Nausea/Vomiting, Starting on Mon03/20/23 at 0337, Until Valeri 03/23/23 at 1914, Administer IV if patient is NPO, actively vomiting, or unable to swallow. $ Given 03/22/2023 12:48 PM APPLICATION TECHNICIAN 4 mg oxyCODONE (immediate release) (Roxicodone) tablet 10 mg 10 mg, Oral, EVERY 4 HOURS PRN, Severe Pain, Starting on Mon03/20/23 at 0359, Until Valeri 03/23/23 at 1914, Patient preference for lesser PRN pain meds may be honored when the patient requests a less strong medication, a lower dose, or a less intrusive route of administration when the lesser drug, dose and route have been ordered for the patient. This patient request must be documented in the MAR. $ Given 03/23/2023 5:08 PM APPLICATION TECHNICIAN 10 mg $ Given 03/23/2023 1:08 PM APPLICATION TECHNICIAN 10 mg $ Given 03/23/2023 9:24 AM APPLICATION TECHNICIAN 10 mg oxyCODONE (immediate release) (Roxicodone) tablet 5 mg 5 mg, Oral, EVERY 4 HOURS PRN, Moderate Pain, Starting on Mon03/20/23 at 0359, Until Valeri 03/23/23 at 1914, Patient preference for lesser PRN pain meds may be honored when the patient requests a less strong medication, a lower dose, or a less intrusive route of administration when the lesser drug, dose and route have been ordered for the patient. This patient request must be documented in the MAR. $ Given 03/22/2023 6:12 AM APPLICATION TECHNICIAN 5 mg polyethylene glycol 3350 (Miralax) packet 17 g 17 g, Oral, DAILY, 3 doses, First dose (after last modification) on Mon03/20/23 at 0900, Last dose on Mon03/22/23 at 0900, Mix in 8 ounces of water, juice, soda, coffee or tea prior to administration $ Given 03/22/2023 8:44 AM APPLICATION TECHNICIAN 17 g $ Given 03/21/2023 9:04 AM APPLICATION TECHNICIAN 17 g rivaroxaban (Xarelto) tablet 20 mg 20 mg, Oral, DAILY WITH FOOD, First dose on Mon03/20/23 at 0900, Until Discontinued, For tube administration, please refer to the MAR References links: Administration Dose of 15 mg or greater should be taken with food $ Given 03/22/2023 8:44 AM CS T 20 mg $ Given 03/21/2023 9:06 AM APPLICATION TECHNICIAN 20 mg $ Given 03/20/2023 8:28 AM APPLICATION TECHNICIAN 20 mg rOPINIRole (Requip) tablet 5 mg 5 mg, Oral, AT BEDTIME, First dose on Mon03/20/23 at 2100, Until Discontinued $ Given 03/22/2023 8:10 PM APPLICATION TECHNICIAN 5 mg $ Given 03/21/2023 8:13 PM APPLICATION TECHNICIAN 5 mg $ Given 03/20/2023 9:41 PM APPLICATION TECHNICIAN 5 mg rOPINIRole (Requip) tablet 5 mg 5 mg, Oral, Once, 1 dose, On Mon03/20/23 at 0415 $ Given 03/20/2023 4:16 AM APPLICATION TECHNICIAN 5 mg documented in this encounter Active and Recently Administered Medications Times are shown in APPLICATION TECHNICIAN. Scheduled Medication Order 03/21/2023 03/22/2023 03/23/2023 0.9% NaCl injection 3 mL(Linked Group 1) 3 mL, Intracatheter, EVERY 8 HOURS, First dose on Mon03/20/23 at 0600, Until Discontinued, Flush peripheral IV catheter with 3 mL of normal saline every 8 hours. 0605 (Not Administered - Provider: Shankar Ray RN - Reason: Refused-Patient)1313 ($ Given - Provider: Katty Hernandez RN)2127 ($ Given - Provider: Harry Spears RN) 0549 (Not Administered - Provider: Harry Spears RN - Reason: See Comments - Comment: given earlier in shift)1327 (Canceled Entry - Provider: Mirlande Ahuja RN)2111 ($ Given - Provider: Harry Spears RN) 0542 (Not Administered - Provider: Harry Spears RN - Reason: See Comments)1308 ($ Given - Provider: Jos Duran RN) acetaminophen (Tylenol) tablet 1,000 mg 1,000 mg, Oral, 3 TIMES DAILY, First dose on Mon03/20/23 at 1030, Until Discontinued, Patient preference for lesser PRN pain meds may be honored when the patient requests a less strong medication, a lower dose, or a less intrusive route of administration when the lesser drug, dose and route have been ordered for the patient. This patient request must be documented in the MAR. 904 ($ Given - Provider: Katty Hernandez RN)131 ($ Given - Provider: Katty Hernandez RN)2012 ($ Given - Provider: Harry Spears RN) 0844 ($ Given - Provider: Mirlande Ahuja RN)1545 ($ Given - Provider: Mirlande Ahuja RN)2009 (Not Administered - Provider: Harry Spears RN - Reason: Refused-Patient) 926 (Not Administered - Provider: Jos Duran RN - Reason: Refused-Patient)130 (Not Administered - Provider: Jos Duran RN - Reason: Refused-Patient) amitriptyline (Elavil) tablet 25 mg 25 mg, Oral, AT BEDTIME, First dose on Mon03/20/23 at 2100, Until Discontinued 2012 ($ Given - Provider: Harry Spears RN) 2009 ($ Given - Provider: Harry Spears RN) exemestane (Aromasin) tablet 25 mg 25 mg, Oral, DAILY, First dose on Mon03/20/23 at 0900, Until Discontinued 09 ($ Given - Provider: Katty Hernandez RN) 1020 ($ Given - Provider: Mirlande Ahuja RN) 0925 ($ Given - Provider: Jos Duran RN) hydroCHLOROthiazide (Hydrodiuril) tablet 12.5 mg 12.5 mg, Oral, DAILY, First dose on Mon03/20/23 at 0900, Until Discontinued 910 ($ Given - Provider: Katty Hernandez RN) 0844 ($ Given - Provider: Mirlande Ahuja RN) 0925 ($ Given - Provider: Jos Duran RN) hydrocortisone (Hytone) 1 % cream Topical, 2 TIMES DAILY, First dose on Mon03/21/23 at 1300, Until Discontinued, Apply to area around left buttock 1314 ($ Given - Provider: Katty Hernandez RN)2014 ($ Given - Provider: Harry Spears RN) 1020 ($ Given - Provider: Mirlande Ahuja RN)2009 ($ Given - Provider: Harry Spears RN) 0928 ($ Given - Provider: Jos Duran RN) hydrOXYzine HCl (Atarax) tablet 25 mg (COMPLETED) 25 mg, Oral, Once, 1 dose, On Mon03/22/23 at 1645 1642 ($ Given - Provider: Mirlande Ahuja RN) insulin aspart (NovoLOG) pen 0-12 Units 0-12 Units, Subcutaneous, 3 TIMES DAILY WITH MEALS, First dose on Mon03/20/23 at 0800, Until Discontinued, Standard Dose: Correction [...] combine and give at the same time. 0959 ($ Given - Provider: Katty Hernandez RN)1220 ($ Given - Provider: Katty Hernandez RN)1728 (Not Administered - Provider: Katty Hernandez RN - Reason: See Comments - Comment: dose not required) 0851 ($ Given - Provider: Mirlande Ahuja RN - Comment: bs [phone])1220 ($ Given - Provider: Mirlande Ahuja RN - Comment: bs [phone])1657 ($ Given - Provider: Mirlande Ahuja RN - Comment: bs [phone]) 0927 ($ Given - Provider: Jos Duran RN)1217 ($ Given - Provider: Jos Duran RN)1721 ($ Given - Provider: Jos Duran RN) insulin aspart (NovoLOG) pen 12 Units (CANCELED) 12 Units, Subcutaneous, 3 TIMES DAILY WITH MEALS, First dose on Mon03/20/23 at 0800, Until Discontinued, MEALTIME INSULIN Hold MEALTIME insulin if patient is NPO or eating less than 50% of meals. -OR- if carb intake for the meal is less than 30 grams. 0958 ($ Given - Provider: Katty Hernandez RN)1221 ($ Given - Provider: Katty Hernandez RN) insulin aspart (NovoLOG) pen 8 Units 8 Units, Subcutaneous, 3 TIMES DAILY WITH MEALS, First dose (after last modification) on Mon03/21/23 at 1800, Until Discontinued, MEALTIME INSULIN Hold MEALTIME insulin if patient is NPO or eating less than 50% of meals. -OR- if carb intake for the meal is less than 30 grams. 1728 ($ Given - Provider: Katty Hernandez RN) 0851 ($ Given - Provider: Mirlande Ahuja RN - Comment: bs [phone])1221 ($ Given - Provider: Mirlande Ahuja RN - Comment: bs [phone])1657 ($ Given - Provider: Mirlande Ahuja RN - Comment: bs [phone]) 0927 ($ Given - Provider: Jos Duran RN)1217 ($ Given - Provider: Jos Duran RN)1721 ($ Given - Provider: Jos Duran RN) insulin glargine (Lantus) pen 5 Units 5 Units, Subcutaneous, AT BEDTIME, First dose on Mon03/21/23 at 2100, Until Discontinued, ............. DO NOT HOLD even if patient is NPO Consider calling physician for dose reduction if patient is made NPO. Body mass index is 51.58 kg/m??. . WASTE DISPOSAL INSTRUCTIONS: Black Bin Disposal required. 2126 ($ Given - Provider: Harry Spears RN) 2056 ($ Given - Provider: Harry Spears RN) iopamidol (Isovue 370) 76 % contrast Intravenous, CONTRAST ONCE, Starting on Mon03/23/23 at 0822, Until Mon03/23/23 at 1914 0822 ($ Given - Contrast - Provider: Estrella Patel) nitrofurantoin monohyd macro crystals (Macrobid) capsule 100 mg 100 mg, Oral, 2 TIMES DAILY, First dose on Mon03/20/23 at 1115, Until Discontinued, Indication for anti-infective therapy: Suspected infection, Site of anti-infective therapy: Urine/Genitourinary 0916 ($ Given - Provider: Katty Hernandez RN)2012 ($ Given - Provider: Harry Spears RN) 1020 ($ Given - Provider: Mirlande Ahuja, NURIS)2009 ($ Given - Provider: Harry Spears, NURIS) 0925 ($ Given - Provider: Jos Duran RN) polyethylene glycol 3350 (Miralax) packet 17 g () 17 g, Oral, DAILY, 3 doses, First dose (after last modification) on Mon03/20/23 at 0900, Last dose on Mon03/22/23 at 0900, Mix in 8 ounces of water, juice, soda, coffee or tea prior to administration 09 ($ Given - Provider: Katty Hernandez RN) 0844 ($ Given - Provider: Mirlande Ahuja, NURIS) rivaroxaban (Xarelto) tablet 20 mg (CANCELED) 20 mg, Oral, DAILY WITH FOOD, First dose on Mon03/20/23 at 0900, Until Discontinued, For tube administration, please refer to the MAR References links: Administration Dose of 15 mg or greater should be taken with food 09 ($ Given - Provider: Katty Hernandez RN) 08 ($ Given - Provider: Mirlande Ahuja, NURIS) rOPINIRole (Requip) tablet 5 mg 5 mg, Oral, AT BEDTIME, First dose on Mon03/20/23 at 2100, Until Discontinued 2012 ($ Given - Provider: Harry Spears, NURIS) 2009 ($ Given - Provider: Harry Spears, NURIS) PRN Medication Order 03/21/2023 03/22/2023 03/23/2023 0.9% NaCl injection 1-10 mL(Linked Group 1) 1-10 mL, Intracatheter, PRN, Other, peripheral line flush, Starting on Mon03/20/23 at 0335, Until Valeri 03/23/23 at 1914, Flush peripheral IV catheter with 1-10 mL of normal saline before and after medications and prn to clear blood from the line or to verify patency. dextrose 10 % IV bolus(Linked Group 2) 12.5 g, at 468.75 mL/hr, Intravenous, PRN, Other, Bedside Glucose less than 70 mg/dL -If NOT able to eat and/or NPO and with IV Access, Starting on Mon03/20/23 at 0340, Until Valeri 03/23/23 at 1914, If NOT able to eat and/or NPO [...] NPO and with IV Access, Starting on Mon03/20/23 at 0340, Until Mon03/23/23 at 1914, If NOT able to eat and/or NPO [...] PROVIDER OF HYPOGLYCEMIC EVENT. diphenhydrAMINE (Benadryl) capsule 50 mg (CANCELED) 50 mg, Oral, EVERY 6 HOURS PRN, Itching, Starting on Mon03/20/23 at 1828, Until Mon03/23/23 at 1145 1311 ($ Given - Provider: Katty Hernandez RN) 0701 ($ Given - Provider: Gunnar Johsnton RN)1545 ($ Given - Provider: Mirlande Ahuja, NURIS) diphenhydrAMINE (Benadryl) capsule 50 mg 50 mg, Oral, EVERY 6 HOURS PRN, Itching, Starting on Mon03/23/23 at 1145, Until Mon03/23/23 at 1914 1216 ($ Given - Provider: Jos Duran RN) glucagon (Glucagen) injection 1 mg(Linked Group 2) 1 mg, Subcutaneous, PRN, Bedside Glucose less than 70 mg/dL - If NOT able to eat and/or NPO and withOUT IV Access, Starting on Mon03/20/23 at 0340, Until Valeri 03/23/23 at 1914, If NOT able to eat and/or NPO [...] does not have swallowing difficulties, Starting on Mon03/20/23 at 0340, Until Valeri 03/23/23 at 1914, If able to eat and can swallow [...] does not have swallowing difficulties, Starting on Mon03/20/23 at 0340, Until Mon03/23/23 at 1914, If able to eat and is better [...] does not have swallowing difficulties, Starting on Mon03/20/23 at 0340, Until Mon03/23/23 at 1914, If able to eat and does not [...] for choices). NOTIFY PROVIDER OF HYPOGLYCEMIC EVENT. HYDROmorphone (Dilaudid) injection 0.4 mg 0.4 mg, Intravenous, EVERY 4 HOURS PRN, for breathrough pain not controlled with PO, Starting on Mon03/20/23 at 1735, Until Mon03/23/23 at 1914, Patient preference for lesser PRN pain meds may be honored when the patient requests a less strong medication, a lower dose, or a less intrusive route of administration when the lesser drug, dose and route have been ordered for the patient. This patient request must be documented in the MAR. 0154 ($ Given - Provider: Shankar Ray RN)0722 ($ Given - Provider: Shankar Ray RN)1736 ($ Given - Provider: Katty Hernandez RN) 2236 ($ Given - Provider: Harry Spears RN) hydrOXYzine HCl (Atarax) tablet 25 mg 25 mg, Oral, 3 TIMES DAILY PRN, Itching, Starting on Mon03/20/23 at 0958, Until Mon03/23/23 at 1914 0905 ($ Given - Provider: Katty Hernandez RN)1727 ($ Given - Provider: Katty Hernandez RN) 1248 ($ Given - Provider: Mirlande Ahuja RN)2242 ($ Given - Provider: Harry Spears RN) 0924 ($ Given - Provider: Jos Duran RN)1708 ($ Given - Provider: Jos Duran RN) methocarbamol (Robaxin) tablet 500 mg 500 mg, Oral, EVERY 6 HOURS PRN, Muscle Spasms, Starting on Mon03/20/23 at 1737, Until Mon03/23/23 at 1914 0905 ($ Given - Provider: Katty Hernandez RN)1311 ($ Given - Provider: Katty Hernandez RN)2012 ($ Given - Provider: Harry Spears, NURIS) 1904 ($ Given - Provider: Harry Spears RN) ondansetron (disintegrating) (Zofran ODT) tablet 4 mg(Linked Group 4) 4 mg, Oral, EVERY 6 HOURS PRN, Nausea/Vomiting, Starting on Mon03/20/23 at 0337, Until Valeri 03/23/23 at 1914, Dissolved orally on tongue 1226 ($ Given - Provider: Katty Hernandez RN) 1248 (See Alternative - Provider: Mirlande Ahuja, NURIS) ondansetron (Zofran) injection 4 mg(Linked Group 4) 4 mg, Intravenous, EVERY 6 HOURS PRN, Nausea/Vomiting, Starting on Mon03/20/23 at 0337, Until Valeri 03/23/23 at 1914, Administer IV if patient is NPO, actively vomiting, or unable to swallow. 1226 (See Alternative - Provider: Katty Hernandez RN) 1248 ($ Given - Provider: Mirlande Ahuja RN) oxyCODONE (immediate release) (Roxicodone) tablet 10 mg(Linked Group 5) 10 mg, Oral, EVERY 4 HOURS PRN, Severe Pain, Starting on Mon03/20/23 at 0359, Until Mon03/23/23 at 1914, Patient preference for lesser PRN pain meds may be honored when the patient requests a less strong medication, a lower dose, or a less intrusive route of administration when the lesser drug, dose and route have been ordered for the patient. This patient request must be documented in the MAR. 0905 ($ Given - Provider: Katty Hernandez RN)1226 ($ Given - Provider: Katty Hernandez RN)2012 ($ Given - Provider: Harry Spears RN) 0103 ($ Given - Provider: Harry Spears RN)0612 (See Alternative - Provider: Harry Spears RN)1248 ($ Given - Provider: Mirlande Ahuja RN)1904 ($ Given - Provider: Harry Spears RN) 0541 ($ Given - Provider: Harry Spears RN)0924 ($ Given - Provider: Jos Duran RN)1308 ($ Given - Provider: Jos Duran RN)1708 ($ Given - Provider: Jos Duran RN) oxyCODONE (immediate release) (Roxicodone) tablet 5 mg(Linked Group 5) 5 mg, Oral, EVERY 4 HOURS PRN, Moderate Pain, Starting on Mon03/20/23 at 0359, Until Mon03/23/23 at 1914, Patient preference for lesser PRN pain meds may be honored when the patient requests a less strong medication, a lower dose, or a less intrusive route of administration when the lesser drug, dose and route have been ordered for the patient. This patient request must be documented in the MAR. 09 (See Alternative - Provider: Katty Hernandez RN)122 (See Alternative - Provider: Katty Hernandez RN)2012 (See Alternative - Provider: Harry Spears RN) 0103 (See Alternative - Provider: Harry Spears RN)0612 ($ Given - Provider: Harry Spears RN)1248 (See Alternative - Provider: Mirlande Ahuja RN)1904 (See Alternative - Provider: Harry Spears RN) 0541 (See Alternative - Provider: Harry Spears RN)0924 (See Alternative - Provider: Jos Duran RN)1308 (See Alternative - Provider: Jos Duran RN)1708 (See Alternative - Provider: Jos Druan RN) Linked Groups Order Group 1: SALINE LOCK, INSERT AND MAINTAIN (CANCELED) Routine, CONTINUOUS, Starting on Mon03/20/23 at 0345, Until Specified, New collection And 0.9% NaCl injection 3 mLJump to med 3 mL, Intracatheter, EVERY 8 HOURS, First dose on Mon03/20/23 at 0600, Until Discontinued, Flush peripheral IV catheter with 3 mL of normal saline every 8 hours. And 0.9% NaCl injection 1-10 mLJump to med 1-10 mL, Intracatheter, PRN, Other, peripheral line flush, Starting on Mon03/20/23 at 0335, Until Valeri 03/23/23 at 1914, Flush peripheral IV catheter with 1-10 mL of normal saline before and after medications and prn to clear blood from the line or to verify patency. Group 2: dextrose 10 % IV bolusJump to med 12.5 g, at 468.75 mL/hr, Intravenous, PRN, Other, Bedside Glucose less than 70 mg/dL -If NOT able to eat and/or NPO and with IV Access, Starting on Mon03/20/23 at 0340, Until Mon03/23/23 at 191, If NOT able to eat and/or NPO [...] NPO and with IV Access, Starting on Mon03/20/23 at 0340, Until Mon03/23/23 at 1913, If NOT able to eat and/or NPO [...] NPO and withOUT IV Access, Starting on Mon03/20/23 at 0340, Until Mon03/23/23 at 191, If NOT able to eat and/or NPO [...] does not have swallowing difficulties, Starting on Mon03/20/23 at 0340, Until Mon03/23/23 at 1914, If able to eat and can swallow [...] does not have swallowing difficulties, Starting on Mon03/20/23 at 0340, Until Mon03/23/23 at 1914, If able to eat and is better [...] does not have swallowing difficulties, Starting on 03/20/23 at 0340, Until Valeri 03/23/23 at 1914, If able to eat and does not [...] EVERY 6 HOURS PRN, Nausea/Vomiting, Starting on Mon03/20/23 at 0337, Until Mon03/23/23 at 1914, Dissolved orally on tongue Or ondansetron (Zofran) injection 4 mgJump to med 4 mg, Intravenous, EVERY 6 HOURS PRN, Nausea/Vomiting, Starting on Mon03/20/23 at 0337, Until Valeri 03/23/23 at 1914, Administer IV if patient is NPO, actively vomiting, or unable to swallow. Group 5: oxyCODONE (immediate release) (Roxicodone) tablet 5 mgJump to med 5 mg, Oral, EVERY 4 HOURS PRN, Moderate Pain, Starting on Mon03/20/23 at 0359, Until Mon03/23/23 at 191, Patient preference for lesser PRN pain meds [...] 4 HOURS PRN, Severe Pain, Starting on Mon03/20/23 at 0359, Until Mon03/23/23 at 191, Patient preference for lesser PRN pain meds may be honored when the patient requests a less strong medication, a lower dose, or a less intrusive route of administration when the lesser drug, dose and route have been ordered for the patient. This patient request must be documented in the MAR. documented in this encounter Care Teams Oil Well Drilling Manager Relationship Specialty Start Date End Date Justen Gale MD PCP - General 07/05/21 documented as of this encounter
--- OUTSIDE RECORDS SUMMARY | 2024-04-26 02:31 | XMS_ITS | Encounter Summary ---
Author Organization [facility] Address [address] [place] [address] Care Team Providers Care Smt Machine Operator Name Role Phone Justen Gale MD Primary Care Provider [phone] Encounter Details Date Type Department Care Team (Late st Contact Info) Description 03/06/2023 1:00 PM TEACHER EDUCATION DIRECTOR Office Visit [facility] - Neurosurgery [address] [place] [address] [address] [place] [phone] Maxi Gregg MD [address] [place] [address] Infection of spinal cord stimulator, sequela (Primary Dx) Social History Tobacco Use Types [...] and heating? Not hard at all 02/22/2023 [facility] of Occupat ional Health - Occupational Stress [...] slept in a usp (including now)? No 02/22/2023 Sex and Gender Information Value Date Recorded Sex Assigned at Not on file Gender Identity Not on file Sexual Orientation Not on file documented as of this encounter Last Filed Vital Signs Vital Sign Reading Time Taken Comments Blood Pressure 174/86 03/06/2023 12:52 PM TEACHER EDUCATION DIRECTOR Pulse 99 03/06/2023 12:52 PM TEACHER EDUCATION DIRECTOR Temperature 36.9 ??C (98.5 ??F) 03/06/2023 12:[address] Respiratory Rate - - Oxygen Saturation 99% 03/06/2023 12:52 PM TEACHER EDUCATION DIRECTOR Inhaled Oxygen Concentration - - Weight - - Height - - Body Mass Index - - documented in this encounter Functional Status Functional [...] * Patient Instructions* Angeline Avila RN - 03/06/2023 1:07 PM TEACHER EDUCATION DIRECTOR Follow up with Dr. Gregg in 4-6 weeks Obtain labs prior to appointment For any questions please contact Angeline at [phone] For appointments call Centralized Scheduling at [phone] HER EDUCATION DIRECTOR documented in this encounter Progress Notes * Maxi Gregg MD - 03/07/2023 2:45 AM CST Clinic Note / Progress Note NAME: MOHSEN SALAZAR : 1955 AGE: 67 PROVIDER: Maxi Gregg MD SEX: F DATE: 03/06/2023 I had the pleasure of seeing Mrs. Salazar in neurosurgery office today. HISTORY OF PRESENT ILLNESS: Mrs. Salazar is a very pleasant 67-year-old lady with a complex historyfrom the spinal standpoint. The patient had a history of spinal stimulation placed in 2021. Unfortunately, she had infection at the site of the battery and had to have it removed. She had a new procedure on 02/16/2023 for placement of a spinal stimulation battery, now on the left lower lumbar region. She presented to the hospital a week later with some concerns of a rash over the wound. There were some reports of drainage. When the patient arrived, the wound was clean and dry. She had a CT scandemonstrating no collection. She was evaluated by infectious disease who decided not to treat the identified bacteria in her urine as the patient had no symptoms. The redness in her lumbar spine excision seemed more related to a rash to the tape than any ongoing infection. The patient was discharged home on oral antibiotics for 2 weeks. She comes for followup appointment today. She reports feeling some nausea and not been eating well since her discharge. There is no change in the aspect of the w ound. No report of fever. Social History Socioeconomic History Marital status: Spouse name: Not on file Number of children: Not on file Years of education: Not on file Highest education level: Not on file Occupational History Not on file Tobacco Use Smoking status: Former Packs/day: .5 Types: Cigarettes Quit date: 12/05/1977 Years since quittin.2 Smokeless tobacco: Never Vaping Use Vaping Use: [...] No Stress: No Stress Concern Present (02/22/2023) [facility] [place] [facility] Occupational Health - Occupational Stress Questionnaire [...] (one) capsule by mouth once daily HYDROcodone-acetaminophen ([place]) 7.5-325 MG tablet Take 1 (one) tablet by mouth every 6 hours as needed for Pain hydrOXYzine HCl (Atarax) 10 MG tablet Take 1 (one) tablet by mouth every 6 hours as needed (anxiety) insulin pen needle (B-D ULTRAFINE III SHORT PEN) 31G X 8 MM needle 4 times daily Lancets (AMTTOUCH DELICA PLUS 33G EXTRA FINE LANCET) USE [...] 1 (one) tablet by mouth once daily rOPINIRole (REQUIP) 5 MG tablet TAKE 1 TABLET BY MOUTH EVERY NIGHT sulfamethoxazole-trimethoprim (Bactrim DS; Septra DS) 800-160 MG tablet Take 1 (one) tablet by mouth every 12 hours for 14 days PHYSICAL EXAMINATION: The patient is in mild discomfort, but in no acute distress. The wounds in the posterior bilateral lumbar region seem to be properly healing. The redness has somewhat subsided. No change in the temperature. No phlogistic signs. Strength, sensation and reflexes are normal in upper and lower limbs. MEDICAL DECISION MAKING: I told the patient that she seems to be presenting with proper healing of her lumbar wounds. I recommended her to follow up with her PCP for her feeling of nausea and lack ofapettite . She will soon stop the antibiotics, which may be related to the etiology of her nausea. I recommended her to follow up with me in approximately 6 weeks with a CBC, ESR, CRP. If she presented with any worsening of her clinical status or in the aspect of the wound, I recommended her to go to the emergency department. Thank you for allowing us to participate in the care of this patient. MD AMITA Varghese/macarena .[id number] .[id number] Doc ID: [id number] Voice Job ID: [id number] HER EDUCATION DIRECTOR documented in this encounter Plan of Treatment Scheduled Orders Name Type Priority Associated Diagnoses Orde r Schedule CBC WITH DIFFERENTIAL Lab Routine Infection of spinal cord stimulator, sequela 1 Occurrences starting 03/06/2023 until 03/30/2024 C-REACTIVE PROTEIN Lab Routine Infection of spinal cord stimulator, sequela 1 Occurrences starting 03/06/2023 until 03/30/2024 ERYTHROCYTE SEDIMENTATION RATE Lab Routine Infection of spinal cord stimulator, sequela 1 Occurrences starting 03/06/2023 until 03/30/2024 documented as of this encounter Visit Diagnoses Diagnosis Infection of spinal cord stimulator, sequela- Primary documented in this encounter Care Teams Smt Machine Operator Relationship Specialty Start Date End Date Justen Gale MD PCP - General 07/05/21 documented as of this encounter
--- OUTSIDE RECORDS SUMMARY | 2024-04-26 02:31 | XMS_ITS | Encounter Summary ---
Author Organization [facility] Address [address] [facility] [place] [address] Care Team Providers Care Sample Body Builder Name Role Phone Justen Gale MD Primary Care Provider [phone] Reason for Visit * Reason Onset Date Comments Appointment 03/23/2023 Encounter Details Date Type Department Care Team (Late st Contact Info) Description 03/23/2023 Telephone [facility] - Neurosurgery [address] [place] [address], [place] [address] Angeline Avila, RN Appointment Social History Tobacco Use Types Packs/Day Years [...] and heating? Not hard at all 02/22/2023 [facility] [place] of Occupat ional Health - Occupational Stress [...] slept in a chcf (including now)? No 02/22/2023 Sex and Gender [...] encounter Miscellaneous Notes * Telephone Encounter - Angeline Avila RN - 03/23/2023 10:00 AM BATHROOM TILING PROFESSIONAL Left message on patient voicemail advising to f/u with Dr Gregg on 03/27 @1000 for a wound check. ROOM TILING PROFESSIONAL documented in this encounter Plan of Treatment Not on file documented as of this encounter Visit Diagnoses Not on filedocumented in this encounter Care Teams Sample Body Builder Relationship Specialty Start Date End Date Justen Gale MD PCP - General 07/05/21 documented as of this encounter
--- OUTSIDE RECORDS SUMMARY | 2024-04-26 02:31 | XMS_ITS | Encounter Summary ---
Author Organization [facility] Address [address] [facility] [place] [address] Care Team Providers Care President & Ceo [employer] Name Role Phone Justen Gale MD Primary Care Provider [phone] Encounter Details Date Type Department Care Team (Latest Contact Info) Description 04/17/2023 Travel Social History Tobacco Use Types Packs/Day [...] and heating? Not hard at all 02/22/2023 [facility] [place] of Occupat ional Health - Occupational Stress [...] place to sleep or slept in a long-term (including now)? No 02/22/2023 Sex and Gender [...] on filedocumented in this encounter Care Teams President & Ceo [employer] Relationship Specialty Start Date End Date Justen Gale MD PCP - General 07/05/21 documented as of this encounter
--- OUTSIDE RECORDS SUMMARY | 2024-04-26 02:31 | XMS_ITS | Encounter Summary ---
Author Organization [facility] Address [address] [facility] [place] [address] Care Team Providers Care Weight Inspector Name Role Phone Justen Gale MD Primary Care Provider [phone] Reason for Referral * Neurology (Emergency) - Closed Specialty Diagnoses / Procedures Referred By Elyssa benavides Referred To Contact Electrophysiology Diagnoses Left leg weakness Procedures EMG WITH NERVE CONDUCTION STUDY Melly Banks APRN-CNP [address] [address] Referral ID Status Reason Start Date Expiration Date Visits Re quested Visits Authorized [id number] Closed 05/22/2023 05/21/2024 1 1 R CONNECTOR Encounter Details Date Type Department Care Team (Late st Contact Info) Description 05/22/2023 Orders Only [facility] - Neurosurgery [address] [place] [address] [address] [place] [phone] Melly Banks APRN-CNP [address] [place] [address] Left leg weakness Social History Tobacco Use Types Packs/Day Years [...] medical care, and heating? Somewhat hard 05/16/2023 [facility] of Occupat ional Health - Occupational Stress [...] place to sleep or slept in a fci (including now)? No 05/16/2023 Sex and Gender [...] on file documented as of this encounter Results * EMG WITH NERVE CONDUCTION STUDY (05/31/2023 11:59 PM SEWER CONNECTOR) Narrative Stanford Saldana MD - 05/31/2023 11:59 PM SEWER CONNECTOR Stanford Saldana MD ? 06/05/2023 ??5:[address] [facility] [address] [place] [address], [address] [phone] Patient: Karly Marques V #: ??Physician: Stanford Saldana MD Sex: Female ID#: [id number] Ref Phys: ITA Patel : 1955 Date: 05/31/2023 Special Education Para Professional: Christin Panchal Patient Complaints: The patient is [...] 0 Nml ND Waveforms: ? Melly Banks REGULATORY SUBMISSIONS SPECIALIST-ELECTRICAL APPLIANCE REPAIRER NEUROLOGY ORDERA BLES documented in this encounter Visit Diagnoses Diagnosis Left leg weakness- Primary Other musculoskeletal symptoms referable to limbs Left leg weakness Other musculoskeletal symptoms referable to limbs documented in this encounter Care Teams Weight Inspector Relationship Specialty Start Date End Date Justen Gale MD PCP - General 07/05/21 documented as of this encounter
--- OUTSIDE RECORDS SUMMARY | 2024-04-26 02:31 | XMS_ITS | Encounter Summary ---
Author Organization [facility] Address [address] [address] Care Team Providers Care Fine Arts Packer Name Role Phone Justen Gale MD Primary Care Provider [phone] Reason for Visit * Reason Comments MALAISE Generalized pain and b/l arm weakness x1 week, recently admitted for same , tomorrow has a nerve conduction test Encounter Details Date Type Department Care Team (Late st Contact Info) Description 05/28/2023 10:29 PM TOBACCO WEIGHER - 05/29/2023 4:35 AM TOBACCO WEIGHER Emergency ER at [place] [id number] Gatito Verdugo MD [address] [place] [address] Dizziness; Lumbar radiculopathy; Weakness; Acute left-sided low back pain with bilateral sciatica Discharge Disposition: Home or Self Care Social [...] medical care, and heating? Somewhat hard 05/16/2023 [facility] [place] of Occupat ional Health - Occupational Stress [...] place to sleep or slept in a intermediate (including now)? No 05/16/2023 Sex and Gender Information Value Date Recorded Sex Assigned at Not on file Gender Identity Not on file Sexual Orientation Not on file documented as of this encounter Last Filed Vital Signs Vital Sign Reading Time Taken Comments Blood Pressure 139/82 05/29/2023 3:31 AM TOBACCO WEIGHER Pulse 85 05/28/2023 10:41 PM TOBACCO WEIGHER Temperature 37 ??C (98.6 ??F) 05/28/2023 7:41 PM TOBACCO WEIGHER Respiratory Rate 20 05/28/2023 10:41 PM TOBACCO WEIGHER Oxygen Saturation 95% 05/29/2023 3:50 AM TOBACCO WEIGHER Inhaled Oxygen Concentration - - Weight 119.7 kg (264 lb) 05/28/2023 10:40 PM TOBACCO WEIGHER Height 154.9 cm (5' 1 ) 05/28/2023 10:40 PM TOBACCO WEIGHER Body Mass Index 49.88 05/28/2023 10:40 PM TOBACCO WEIGHER documented in this encounter Functional Status Functional [...] 02/22/2023 documented as of this encounter Discharge Instructions * Discharge Instructions* Gatito Verdugo MD - 05/29/2023 3:23 AM TOBACCO WEIGHER Please follow-up with your spine surgeon CCO WEIGHER documented in this encounter Medications at Time [...] Reasons: for restless legs 06/05/2023 HYDROcodone-acetaminoph en (Rillito) 10-325 MG tabletIndications:Chron ic left-sided low back [...] 08/15/2022 03/08/2024 documented as of this encounter ED Notes * Isa Morales RN - 05/29/2023 4:35 AM CST The patient was discharged with written and verbal aftercare and follow up instructions. The patient was provided with Rx education, if Rx was written as part of the discharge care. The patient (and support person if applicable), verbalized understanding of instructions. All questions were answered. At time of discharge, the patient is stable, no acute distress is noted, and they exited the department safely and without incident. CCO WEIGHER * Aislinn Saldaña RN - 05/29/2023 3:09 AM CST 67 year old female presents with complaint of back pain. She states that the pain has worsened overthe last 12 weeks and feels like its coming from her stimulator. PMH of breast cancer, LUL, PE, DM. CCO WEIGHER * Leo Bourne RN - 05/29/2023 3:02 AM CST Bed: 28 Expected date: Expected time: Means of arrival: Comments: 43 CCO WEIGHER * Gatito Verdugo MD - 05/28/2023 11:34 PM CST Attending note: Chief complaint: Chief Complaint Patient presents with ??? MALAISE Generalized pain and b/l arm weakness x1 week, recently admitted for same , tomorrow has a nerve conduction test HPI: Mohsen Marques is a 67 year old female with history of type 2 diabetes, chronic low back pain s/p spinal stimulator complicated by infection of the battery who presents to the ER for back pain. Patient reports she has pain to her lower back radiating down her left hip. Reports pain is worse whenlying on her back. Pain is been present for several months states. Has recently noticed tremor in her upper extremities when she lifts her arms. Has intermittent dizziness that has been ongoing for several weeks. Has weakness in her leg which is unchanged. Denies fever, chills, nausea, vomiting, change in bowel or bladder control, numbness or tingling. Taking Rillito without relief. Reports recently being admitted for her back pain. Was supposed to have an MRI but was unable to due to the nerve stimulator. She has an appointment with her surgeon and an EMG scheduled for tomorrow. Per chart review, patient has had some intermittent upper extremity shaking in the past. Past Medical History: Diagnosis Date ??? Breast cancer (CMS-HCC) ??? Chest pain ??? DVT (deep venous thrombosis) (CMS-HCC) ??? GERD (gastroesophageal reflux disease) ??? LUL (obstructive sleep apnea) w cpap ??? Other pulmonary embolism without acute cor pulmonale (CMS-HCC) ??? rls ??? Type 2 diabetes mellitus without complications ([facility]) Past Surgical History: Procedure Laterality Date ??? [...] THE BATTERY IN THE LOWER LUMBAR REGION Home Medications: No current facility-administered medications on file prior to encounter. Current Outpatient Medications on File Prior to Encounter Medication Sig Dispense Refill ??? amitriptyline (ELAVIL) 25 MG tablet Take 1 (one) tablet by mouth at bedtime Reasons: for restless legs ??? exemestane (AROMASIN) 25 MG tablet Take 1 (one) tablet by mouth DAILY ??? HumaLOG KwikPen 100 UNIT/ML pen 22 (twenty two) Units 3 times daily before meals ??? HYDROcodone-acetaminophen (Rillito) 10-325 MG tablet Take 1 (one) tablet [...] UNITS UNDER THE SKIN EVERY MORNING ??? lidocaine (Lidoderm) 5 % patch Apply [...] TAKE 1 TABLET BY MOUTH EVERY NIGHT Allergies: Allergies Allergen Reactions ??? Latex Rash [...] Unknown ??? Skin Adhesives Skin Reactions Social History: Social History Tobacco Use ??? Smoking status: Former Packs/day: .5 Types: Cigarettes Quit date: 12/05/1977 Years since quittin.5 ??? Smokeless tobacco: Never Substance Use Topics ??? Alcohol use: No Family History: Family History Problem Relation Name Age of Onset ??? Heart Disease Mother ??? Diabetes Mother ??? Cancer Father ??? Hemochromatosis Father ??? Cancer Sister ??? Heart Disease Brother Physical Exam: Vitals: 05/28/23 1722 05/28/23 1941 05/28/23 2240 05/28/23 2241 BP: 148/96 148/76 (!) 179/119 Pulse: 83 70 85 Resp: 20 18 20 Temp: 98.6 ??F (37 ??C) 98.6 ??F (37 ??C) SpO2: 96% 98% 99% Weight: 119.7 kg (264 lb) Height: 1.549 m (5' 1 ) Physical Exam Constitutional: General: She is not in acute distress. Appearance: She is well-developed. Comments: Appears uncomfortable, lying on right side HENT: Head: Normocephalic and atraumatic. Nose: Nose normal. Eyes: Conjunctiva/sclera: Conjunctivae normal. Pupils: Pupils are equal, round, and reactive to light. Cardiovascular: Rate and Rhythm: Normal rate and regular rhythm. Pulmonary: Effort: No respiratory distress. Breath sounds: Normal breath sounds. No wheezing. Abdominal: General: There is no distension. Palpations: Abdomen is soft. Tenderness: There is no abdominal tenderness. Musculoskeletal: General: Normal range of motion. Cervical back: Normal range of motion and neck supple. Comments: Tenderness to lumbar sacral region Strength 4/5 in left lower extremity, 5/5 in right, chronic Skin: General: Skin is warm and dry. Neurological: General: No focal deficit present. Mental Status: She is alert and oriented to person, place, and time. Cranial Nerves: No cranial nerve deficit. Medical Decision Making: History is obtained from patient and is located in my HPI section. Relevant PE findings: Slight weakness on left lower extremity comparison tolerate which is chronic Prior available records reviewed. Per Chart review: Patient admitted here 05/15 to 05/20 for acute on chronic back pain. She initially received IV pain medicines and was transition to p.o.. Was discharged home with plan for outpatient EMG. Code Status: Full Plan of Care: Labs and imaging ordered in triage prior to my evaluation. Pain control Per LINDA Palmer note: Discussed with neuro surgery, Dr. Samnaiego. Recommended T-spine and L-spine radiographs to reassure patient and follow-up outpatient. ED Course: -Patient seen and evaluated -Available studies reviewed -Labs show grossly unremarkable CBC, glucose 189, negative troponin x2 -Imaging interpretation by radiologist: CT L-spine shows right L3 and L4 foraminal stenosis but no other acute findings -patient requesting additional pain medication. Will give pain dose ketamine. -On reevaluation, patient is more comfortable. She is lying on her back. -Results reviewed at bedside with the patient -will give a dose of longer acting pain medicine Initial Electrocardiogram (independent interpretation by Matthias Verdugo MD): Indication: Lightheadedness Normal sinus rhythm ventricular rate (bpm) 79 [place]: normal ST segments: No acute ST elevation or depression noted Compared to old ECG dated 03/24/2023, no changes from previous EKG -Consideration regarding hospitalization: Patient here with acute on chronic back pain. Reports some upper extremity shaking which she has had intermittently per chart review. Her imaging does not show any acute findings. She has no new neuro findings. No loss of bowel or bladder control, saddle anesthesia, or other red flags. Her pain is improved. She is scheduled for EMG today. Will discharge with outpatient follow-up. -I have reviewed the diagnostic findings with the patient and they have had an opportunity to ask me any questions they have about care, diagnosis and discharge plan. The patient is comfortable with the discharge plan. In addition to written discharge instructions, verbal discharge instructions were discussed with the patient. The patient agreed to follow-up as directed, and has been asked to return immediately to the emergency department for any new or concerning symptoms or if their conditionworsens. Labs Reviewed CBC W AUTO DIFFERENTIAL - Abnormal; Notable for the following components: Result Value MCHC 31.5 (*) All other components within normal limits COMPREHENSIVE METABOLIC PANEL - Abnormal; Notable for the following components: Glucose 189 (*) Protein Total 8.8 (*) eGFR by CKD-EPI 85 (*) All other components within normal limits TROPONIN-I HIGH SENSITIVE BASELINE + 1HR - Normal TROPONIN-I HIGH SENSITIVE REFLEX 1HOUR XR CHEST 1VW PORTABLE (Results Pending) CT LUMBAR SPINE W CONTRAST (Results Pending) XR THORACIC SPINE TRAUMA 2 VW (Results Pending) XR LUMBAR SPINE TRAUMA 2 OR 3 VW (Results Pending) CLINICAL INDICATION: 67 year old female history of breast cancer, DVT, pain management for back pain, spinal stimulator, type 2 diabetes, here today for concerns of worsening weakness/tremor that is worsened over the last 12 weeks and feels like it is coming from the stimulator. 100 ML ISOVUE 370 GFR 136 CONTRAST: 100 ML ISOVUE 370 PROCEDURE DATE: 05/29/2023 CT LUMBAR SPINE No significant central canal narrowing. There is severe right L3-L4 neural foraminal narrowing. No acute fracture or compression deformity. No malalignment. To TALK to Manager Trainee Radiologist: Patient Name:MOHSEN MARQUES MR NO:[id number] Accession No: Samad Bowen M.D. Electronically Signed Orders Placed This Encounter ??? XR CHEST 1VW PORTABLE ??? CT LUMBAR SPINE W CONTRAST ??? XR THORACIC SPINE TRAUMA 2 VW ??? XR LUMBAR SPINE TRAUMA 2 OR 3 VW ??? CBC W AUTO DIFFERENTIAL ??? COMPREHENSIVE METABOLIC PANEL ??? TROPONIN-I HIGH SENSITIVE BASELINE + 1HR ??? TROPONIN-I HIGH SENSITIVE REFLEX 1HOUR ??? EKG 12-LEAD ??? HYDROcodone-acetaminophen (Rillito) 5-325 MG tablet 1 tablet ??? HYDROcodone-acetaminophen (Rillito) 5-325 MG tablet 1 tablet ??? morphine injection 4 mg ??? diazePAM (Valium) injection 2.5 mg Final Clinical Impression: 1. Dizziness 2. Lumbar radiculopathy 3. Weakness 4. Acute left-sided low back pain with bilateral sciatica Consult No Procedure done at this time No Ultrasound done at this time No Critical Care: None Portions of the record may have been created with voice recognition software. Occasional wrong-wordor '[id number]' substitutions may have occurred due to the inherent limitations of voice recognition software Gatito Verdugo MD 05/28/2023 11:34 PM CCO WEIGHER * Estela Jaimes PA-C - 05/28/2023 4:00 PM CST RME Note 05/28/2023 16:00 Patient presents with a chief complaint of back pain and weakness/ tremor. History of present illness: 67 year old female history of breast cancer, DVT, pain management for back pain, spinal stimulator, type 2 diabetes, here today for concerns of worsening weakness/tremor that is worsened over the last 12 weeks and feels like it is coming from the stimulator. States that yesterday the tremor just started and she came in for further evaluation. States that she was supposed to be having a nerve conduction test and has tried to have MRIs however the stimulator is interfering so she could not. Denies any saddle anesthesia or bowel or bladder incontinence. She does report weakness throughout all of her limbs however but is able to move them. Does also endorse dizzinessand lightheadedness. No IV drug use. Past Medical History: Diagnosis Date ??? Breast cancer (CMS-HCC) ??? Chest pain ??? DVT (deep venous thrombosis) (CMS-HCC) ??? GERD (gastroesophageal reflux disease) ??? LUL (obstructive sleep apnea) w cpap ??? Other pulmonary embolism without acute cor pulmonale (CMS-HCC) ??? rls ??? Type 2 diabetes mellitus without complications (CMS-HCC) Past Surgical History: Procedure Laterality Date ??? [...] No Stress: No Stress Concern Present (05/16/2023) [facility] [place] of Occupational Health - Occupational Stress Questionnaire ??? Feeling of Stress : Not at all Housing Stability: Low Risk (05/16/2023) Housing Stability Vital Sign ??? Unable to Pay for Housing in the Last Year: No ??? Number of Places Lived in the Last Year: 1 ??? Unstable Housing in the Last Year: No Review of Systems Constitutional: No fevers or chills, recent illness or change in medications Eye/ENT/Mouth: No visual changes, no epistaxis or sore throat Cardiovascular: No palpitations, no chest pain Respiratory: No stridor, no shortness of breath Gastrointestinal: No nausea, vomiting, diarrhea, no abdominal pain Geniturinary: No dysuria, no hematuria Skin: No acute rashes or edema Musculoskeletal: See HPI Neurological: See HPI Psychiatric: No mood changes Unless stated in the HPI all other systems were negative Physical Exam Constitutional: Well developed, well nourished. No acute distress. HENT: Normocephalic, atraumatic. Neck: ROM nl, supple. Heart: normal rate. Pulmonary/Chest: Effort normal, no respiratory distress. Abdomen: soft, non tender. Musculoskeletal: FARIAS, no edema or tenderness. No midline cervical, thoracic tenderness, there is some lumbar midline tenderness and paraspinal tenderness mostly on the left side, no rash or lesions Neurological: A&O x 3, no focal neuro deficits. No Bienvenido's sign, does have tremors at rest Skin: warm, dry. Psych: mood and affect normal. Complete vital signs reviewed. BP (!) 184/111 Pulse 84 Temp 98.4 ??F (36.9 ??C) (Oral) Resp 18 SpO2 99% Diagnostic tests ordered: Orders Placed This Encounter ??? XR CHEST 1VW PORTABLE ??? CT LUMBAR SPINE W CONTRAST ??? XR THORACIC SPINE TRAUMA 2 VW ??? XR LUMBAR SPINE TRAUMA 2 OR 3 VW ??? CBC W AUTO DIFFERENTIAL ??? COMPREHENSIVE METABOLIC PANEL ??? TROPONIN-I HIGH SENSITIVE BASELINE + 1HR ??? TROPONIN-I HIGH SENSITIVE REFLEX 1HOUR ??? EKG 12-LEAD Based on the Medical Screening Exam performed and diagnostic tests at this time: Further evaluation is indicated and will be performed. Care will be transferred to the main ED. Final diagnoses: Dizziness Lumbar radiculopathy Weakness Acute left-sided low back pain with bilateral sciatica CCO WEIGHER Associated attestation - Gena Barcenas DO - 05/28/2023 8:37 PM TOBACCO WEIGHER 05/28/2023 20:37 I did not see the patient, nor was I aware of this patient during this RME process. If I had seen the patient later during his Ed visit, my note will be listed separately. The midlevel provider functioned independently in this pt's care. documented in this encounter Plan of Treatment Not on file documented as of this encounter Procedures Procedure Name Priority Date/Time Associated Diagnosis Comments CT LUMBAR SPINE W CONTRAST STAT 05/29/2023 12:29 AM TOBACCO WEIGHER Lumbar radiculopathy Weakness TROPONIN-I HIGH SENSITIVE REFLEX 1HOUR Timed 05/28/2023 10:40 PM TOBACCO WEIGHER XR LUMBAR SPINE 2 OR 3VW STAT 05/28/2023 6:44 PM TOBACCO WEIGHER Acute left-sided low back pain with bilateral sciatica XR THORACIC SPINE 2VW STAT 05/28/2023 6:44 PM TOBACCO WEIGHER Acute left-sided low back pain with bilateral sciatica XR CHEST 1VW PORTABLE STAT 05/28/2023 6:44 PM TOBACCO WEIGHER Dizziness EKG 12-LEAD STAT 05/28/2023 4:24 PM TOBACCO WEIGHER Dizziness TROPONIN-I HIGH SENSITIVE BASELINE + 1HR STAT 05/28/2023 4:21 PM TOBACCO WEIGHER CBC W AUTO DIFFERENTIAL STAT 05/28/2023 4:21 PM TOBACCO WEIGHER COMPREHENSIVE METABOLIC PANEL STAT 05/28/2023 4:21 PM TOBACCO WEIGHER documented in this encounter Results * CT LUMBAR SPINE W CONTRAST (05/29/2023 12:29 AM TOBACCO WEIGHER) Anatomical Region Laterality Modality Spine Computed Tomogra phy 05/29/2023 9:24 AM TOBACCO WEIGHER Impressions 05/29/2023 9:34 AM TOBACCO WEIGHER IMPRESSION: 1. ??Lumbar degenerative change with neural foraminal stenosis on the right at L4-L5. 2. Chronic findings of sacroiliitis. > Interpreting Provider: Fabiola Alegre MD on 05/29/2023 9:34 AM Narrative 05/29/2023 9:34 AM TOBACCO WEIGHER PROCEDURE: ??CT LUMBAR SPINE W CONTRAST DATE/TIME [...] findings of sacroiliitis. > Interpreting Provider: Fabiola lAegre MD on 05/29/2023 9:34 AM Estela Jaimes PA-C CT ORDERABLES * TROPONIN-I HIGH SENSITIVE REFLEX 1HOUR (05/28/2023 10:40 PM TOBACCO WEIGHER) Pathologist [facility] Troponin I High Sensitive <3 <=14 ng/L 05/28/2023 11:06 PM TOBACCO WEIGHER [facility] Delta Troponin I HS 05/28/2023 11:06 PM TOBACCO WEIGHER [facility] Comment:Delta value intentio yissel not calculated. Baseline to 1 hour specimen collection interval exceeded. Blood BLOOD SPECIMEN / Unknown Venipuncture / Unknown 05/28/2023 10:40 PM TOBACCO WEIGHER 05/28/2023 10:45 PM TOBACCO WEIGHER Estela Jaimes PA-C LAB - MAINTENANCE JOURNEYMAN RY ORDERABLES [facility] [address] [place] [address] * XR LUMBAR SPINE TRAUMA 2 OR 3 VW (05/28/2023 6:44 PM TOBACCO WEIGHER) Anatomical Region Laterality Modality Spine Radiographic Lizeth ging 05/29/2023 10:2 6 AM TOBACCO WEIGHER Impressions 05/29/2023 10:27 AM TOBACCO WEIGHER IMPRESSION: Lumbar degenerative change with no radiographic evidence of acute osseous abnormality of the lumbar spine. > Interpreting Provider: Fabiola Alegre MD on 05/29/2023 10:27 AM Narrative 05/29/2023 10:27 AM TOBACCO WEIGHER PROCEDURE: ??XR LUMBAR SPINE 2 OR 3VW [...] SPINE TRAUMA 2 VW (05/28/2023 6:44 PM TOBACCO WEIGHER) Anatomical Region Laterality Modality Spine Radiographic Lizeth ging 05/29/2023 10:2 5 AM TOBACCO WEIGHER Impressions 05/29/2023 10:26 AM TOBACCO WEIGHER IMPRESSION: Degenerative changes with no radiographic evidence of acute osseous abnormality of the thoracic spine. > Interpreting Provider: Fabiola Alegre MD on 05/29/2023 10:26 AM Narrative 05/29/2023 10:26 AM TOBACCO WEIGHER PROCEDURE: ??XR THORACIC SPINE 2VW DATE/TIME OF [...] PA-C DIAGNOSTIC IM AGING ORDERABLES * XR CHEST 1VW PORTABLE (05/28/2023 6:44 PM TOBACCO WEIGHER) Anatomical Region Laterality Modality Chest Radiographic Lizeth ging 05/29/2023 7:03 AM TOBACCO WEIGHER Impressions 05/29/2023 7:04 AM TOBACCO WEIGHER IMPRESSION: No evidence of acute pulmonary disease. > Interpreting Provider: Justen Lynch MD on 05/29/2023 7:04 AM Narrative 05/29/2023 7:04 AM TOBACCO WEIGHER PROCEDURE: ??XR CHEST 1VW PORTABLE DATE/TIME OF EXAM: ??05/28/2023 6:44 PM CLINICAL INFORMATION: None relevant/not provided if blank. Indication: R42: Dizziness and giddiness Additional History: COMPARISON: None. FINDINGS: ??Spinal stimulator lead is noted. No confluent consolidation or definite effusion/pneumothorax is seen. The pulmonary vasculature is upper limits of normal. Heart size is within normal limits for technique. Procedure Note Justen Lynch MD - 05/29/2023 PROCEDURE: XR CHEST 1VW PORTABLE DATE/TIME OF EXAM: 05/28/2023 6:44 PM CLINICAL INFORMATION: None relevant/not provided if blank. Indication: R42: Dizziness and giddiness Additional History: COMPARISON: None. FINDINGS: Spinal stimulator lead is noted. No confluent consolidation or definite effusion/pneumothorax is seen.The pulmonary vasculature is upper limits of normal. Heart size is within normal limits for technique. IMPRESSION: No evidence of acute pulmonary disease. > Interpreting Provider: Justen Lynch MD on 05/29/2023 7:04 AM Estela Jaimes PA-C DIAGNOSTIC IM AGING ORDERABLES * EKG 12-LEAD (05/28/2023 4:24 PM TOBACCO WEIGHER) Ventricular Rate 79 BPM [facility] Atrial Rate 79 BPM [facility] P-R Interval 148 ms [facility] QRS Duration ms 84 ms [facility] Q-T Interval ms 380 ms [facility] QTC Calculation (Bezet) 435 ms [facility] Calculated P [place] 15 degrees [facility] Calculated R [place] 7 degrees [facility] Calculated T [place] 48 degrees [facility] Interpretation EKG NORMAL SINUS RHYTHM NORMAL ECG Confirmed by MD Jojo, Genaro ([id number]) on 05/29/2023 7:46:55 AM [facility] 05/28/2023 4:24 PM TOBACCO WEIGHER 05/29/2023 7:46 AM TOBACCO WEIGHER Estela Jaimes PA-C ECG ORDERABLE S [facility] * TROPONIN-I HIGH SENSITIVE BASELINE + 1HR (05/28/2023 4:21 PM TOBACCO WEIGHER) [facility] Troponin I High Sensitive <3 <=14 ng/L 05/28/2023 4:46 PM [facility] Blood BLOOD SPECIMEN / Unknown Venipuncture / Unknown 05/28/2023 4:21 PM TOBACCO WEIGHER 05/28/2023 4:25 PM TOBACCO WEIGHER Estela Jaimes PA-C LAB - MAINTENANCE JOURNEYMAN RY ORDERABLES Performing Organization Address City/State/[facility] Co de Phone Number [facility] [address] [place] [address] * (ABNORMAL) COMPREHENSIVE METABOLIC PANEL (05/28/2023 4:21 PM TOBACCO WEIGHER) [facility] Glucose 189(H) 70 - 105 mg/dL 05/28/2023 4:43 PM [facility] Sodium 139 136 - 145 mmol/L 05/28/2023 4:43 PM [facility] Potassium 3.9 3.5 - 5.1 mmol/L 05/28/2023 4:43 PM [facility] Chloride 104 98 - 107 mmol/L 05/28/2023 4:43 PM [facility] CO2 25 22 - 29 mmol/L 05/28/2023 4:43 PM [facility] Calcium 9.8 8.4 - 10.4 mg/dL 05/28/2023 4:43 PM [facility] Anion Gap 10 6 - 16 mmol/L 05/28/2023 4:43 PM [facility] BUN 12 7 - 26 mg/dL 05/28/2023 4:43 PM [facility] Creatinine 0.77 0.57 - 1.11 mg/dL 05/28/2023 4:43 PM [facility] Alkaline Phosphatase 82 40 - 150 U/L 05/28/2023 4:43 PM [facility] ALT 18 0 - 55 U/L 05/28/2023 4:43 PM [facility] AST 17 5 - 34 U/L 05/28/2023 4:43 PM [facility] Protein Total 8.8(H) 6.4 - 8.3 gm/dL 05/28/2023 4:43 PM [facility] Albumin 3.5 3.4 - 5.0 gm/dL 05/28/2023 4:43 PM [facility] Bilirubin Total 0.6 0.2 - 1.2 mg/dL 05/28/2023 4:43 PM [facility] eGFR by CKD-EPI 85(L) >=90 mL/min/1.7 3 m2 05/28/2023 4:43 PM [facility] Blood BLOOD SPECIMEN / Unknown Venipuncture / Unknown 05/28/2023 4:21 PM TOBACCO WEIGHER 05/28/2023 4:25 PM TOBACCO WEIGHER Estela Jaimes PA-C LAB - MAINTENANCE JOURNEYMAN RY ORDERABLES Performing Organization Address City/State/[facility] Co de Phone Number [facility] [address] [place], [place] [id number] * (ABNORMAL) CBC W AUTO DIFFERENTIAL (05/28/2023 4:21 PM TOBACCO WEIGHER) WBC 10.0 4.0 - 10.7 x10E9/L 05/28/2023 4:28 PM [facility] RBC Count 4.64 3.90 - 5.20 x10E12/L 05/28/2023 4:28 PM [facility] Hemoglobin 13.3 11.9 - 15.8 g/dL 05/28/2023 4:28 PM [facility] Hematocrit 42.2 34.8 - 46.1 % 05/28/2023 4:28 PM [facility] MCV 90.9 80.0 - 98.0 fL 05/28/2023 4:28 PM [facility] [facility] MCH 28.7 26.7 - 33.6 pg 05/28/2023 4:28 PM [facility] MCHC 31.5(L) 31.7 - 36.3 g/dL 05/28/2023 4:28 PM [facility] RDW-CV 13.2 11.3 - 14.8 % 05/28/2023 4:28 PM [facility] Platelet Count 281 150 - 420 x10E9/L 05/28/2023 4:28 PM [facility] MPV 9.6 7.8 - 11.4 fL 05/28/2023 4:28 PM [facility] Neutrophil % 61.5 41.0 - 74.0 % 05/28/2023 4:28 PM [facility] Lymphocyte % 28.0 17.0 - 47.0 % 05/28/2023 4:28 PM [facility] Monocyte % 7.4 3.0 - 11.0 % 05/28/2023 4:28 PM [facility] Eosinophil % 2.3 0.0 - 7.0 % 05/28/2023 4:28 PM [facility] Basophil % 0.4 0.0 - 1.6 % 05/28/2023 4:28 PM [facility] Immature Granulocytes % 0.4 0.0 - 1.0 % 05/28/2023 4:28 PM [facility] Neutrophil Absolute 6.16 1.60 - 7.50 x10E9/L 05/28/2023 4:28 PM [facility] Lymphocyte Absolute 2.81 1.00 - 4.40 x10E9/L 05/28/2023 4:28 PM [facility] Monocyte Absolute 0.74 0.15 - 1.00 x10E9/L 05/28/2023 4:28 PM [facility] Eosinophil Absolute 0.23 0.00 - 0.60 x10E9/L 05/28/2023 4:28 PM [facility] Basophil Absolute 0.04 0.00 - 0.13 x10E9/L 05/28/2023 4:28 PM [facility] Blood BLOOD SPECIMEN / Unknown Venipuncture / Unknown 05/28/2023 4:21 PM [facility] 05/28/2023 4:25 PM [facility] Estlea Jaimes PA-C LAB - HEMATOL OGY ORDERABLES Performing Organization Address City/State/[facility] Co de Phone Number [facility] [address] [place] [address] documented in this encounter Visit Diagnoses Diagnosis Dizziness Dizziness and giddiness Lumbar radiculopathy Thoracic or lumbosacral neuritis or radiculitis, unspecified Weakness Other malaise and fatigue Acute left-sided low back pain with bilateral sciatica documented in this encounter Administered Medications Inactive Administered Medications - up to 3 most recent administrations Medication Order [facility] Action Action Date Dose Rate Site 0.9% NaCl injection 0-10 mL 0-10 mL, Intracatheter, ONCE PRN, Other, Contrast flush, 1 dose, Starting on Mon05/29/23 at 0009, Until Mon05/29/23 at 0009, For administration with contrast. $ Given 05/29/2023 12:09 AM [facility] 10 mL 0.9% NaCl IV flush bag 0-250 mL, Intracatheter, ONCE PRN, Contrast flush, 1 dose, Starting on Mon05/29/23 at 0009, Until Mon05/29/23 at 0009, For administration with contrast $ Given 05/29/2023 12:09 AM [facility] 100 mL amitriptyline (Elavil) tablet 25 mg 25 mg, Oral, Once, 1 dose, On Mon05/29/23 at 0100 $ Given 05/29/2023 2:11 AM [facility] 25 mg diazePAM (Valium) injection 2.5 mg 2.5 mg, Intravenous, NOW, 1 dose, On Mon05/28/23 at 2345 $ Given 05/28/2023 11:52 PM [facility] 2.5 mg HYDROcodone-acetaminophen (Rillito) 5-325 MG tablet 1 tablet 1 tablet, Oral, NOW, 1 dose, On Mon05/28/23 at 1730, Patient preference for lesser PRN pain meds may be honored when the patient requests a less strong medication, a lower dose, or a less intrusive route of administration when the lesser drug, dose and route have been ordered for the patient. This patient request must be documented in the MAR. $ Given 05/28/2023 5:54 PM [facility] 1 tablet HYDROmorphone (Dilaudid) tablet 2 mg 2 mg, Oral, Once, 1 dose, On Mon05/29/23 at 0330, Patient preference for lesser PRN pain meds may be honored when the patient requests a less strong medication, a lower dose, or a less intrusive route of administration when the lesser drug, dose and route have been ordered for the patient. This patient request must be documented in the MAR. $ Given 05/29/2023 4:22 AM [facility] 2 mg iopamidol (Isovue 370) 76 % contrast Intravenous, CONTRAST ONCE, Starting on Mon05/29/23 at 0009, Until Mon05/29/23 at 0535 $ Given - Contrast 05/29/2023 12:10 AM [facility] 100 mL ketamine (Ketalar) injection 15 mg 15 mg, Intravenous, ONCE, 1 dose, On Mon05/29/23 at 0115, . $ Given 05/29/2023 2:12 AM [facility] 15 mg morphine injection 4 mg 4 mg, Intravenous, NOW, 1 dose, On 05/28/23 at 2345, Patient preference for lesser PRN pain meds may be honored when the patient requests a less strong medication, a lower dose, or a less intrusive route of administration when the lesser drug, dose and route have been ordered for the patient. This patient request must be documented in the MAR. $ Given 05/28/2023 11:52 PM [facility] 4 mg rOPINIRole (Requip) tablet 5 mg 5 mg, Oral, Once, 1 dose, On Mon05/29/23 at 0330 $ Given 05/29/2023 4:18 AM [facility] 5 mg documented in this encounter Active and Recently Administered Medications Times are shown in [facility]. Scheduled Medication Order 05/27/2023 05/28/2023 05/29/2023 amitriptyline (Elavil) tablet 25 mg (COMPLETED) 25 mg, Oral, Once, 1 dose, On Mon05/29/23 at 0100 0211 ($ Given - Provider: Aislinn Saldaña RN) diazePAM (Valium) injection 2.5 mg (COMPLETED) 2.5 mg, Intravenous, NOW, 1 dose, On 05/28/23 at 2345 2352 ($ Given - Provider: Aislinn Saldaña RN) HYDROcodone-acetaminophen (Rillito) 5-325 MG tablet 1 tablet (COMPLETED) 1 tablet, Oral, NOW, 1 dose, On 05/28/23 at 1730, Patient preference for lesser PRN pain meds may be honored when the patient requests a less strong medication, a lower dose, or a less intrusive route of administration when the lesser drug, dose and route have been ordered for the patient. This patient request must be documented in the MAR. 175 ($ Given - Provider: Marce Jones RN) HYDROmorphone (Dilaudid) tablet 2 mg (COMPLETED) 2 mg, Oral, Once, 1 dose, On Mon05/29/23 at 0330, Patient preference for lesser PRN pain meds may be honored when the patient requests a less strong medication, a lower dose, or a less intrusive route of administration when the lesser drug, dose and route have been ordered for the patient. This patient request must be documented in the JUN. 0422 ($ Given - Provider: Isa Morales RN) iopamidol (Isovue 370) 76 % contrast Intravenous, CONTRAST ONCE, Starting on Mon05/29/23 at 0009, Until Mon05/29/23 at 0535 0010 ($ Given - Contrast - Provider: Juve Abreu RT(R)CT) ketamine (Ketalar) injection 15 mg (COMPLETED) 15 mg, Intravenous, ONCE, 1 dose, On Mon05/29/23 at 0115, . 0212 ($ Given - Provider: Aislinn Saldaña RN) morphine injection 4 mg (COMPLETED) 4 mg, Intravenous, NOW, 1 dose, On Mon05/28/23 at 2345, Patient preference for lesser PRN pain meds may be honored when the patient requests a less strong medication, a lower dose, or a less intrusive route of administration when the lesser drug, dose and route have been ordered for the patient. This patient request must be documented in the MAR. 2352 ($ Given - Provider: Aislinn Saldaña RN) rOPINIRole (Requip) tablet 5 mg (COMPLETED) 5 mg, Oral, Once, 1 dose, On Mon05/29/23 at 0330 0418 ($ Given - Provider: Isa Morales RN) PRN Medication Order 05/27/2023 05/28/2023 05/29/2023 0.9% NaCl injection 0-10 mL (COMPLETED) 0-10 mL, Intracatheter, ONCE PRN, Other, Contrast flush, 1 dose, Starting on Mon05/29/23 at 0009, Until Mon05/29/23 at 0009, For administration with contrast. 0009 ($ Given - Prov ider: Juve Abreu RT(R)CT) 0.9% NaCl IV flush bag (COMPLETED) 0-250 mL, Intracatheter, ONCE PRN, Contrast flush, 1 dose, Starting on Mon05/29/23 at 0009, Until Mon05/29/23 at 0009, For administration with contrast 0009 ($ Given - Prov ider: Juve Abreu, RT(R)CT) documented in this encounter Care Teams Fine Arts Packer Relationship Specialty Start Date End Date Justen Gale MD PCP - General 07/05/21 documented as of this encounter
--- OUTSIDE RECORDS SUMMARY | 2024-04-26 02:31 | XMS_ITS | Encounter Summary ---
Author Organization [facility] Address [address] [facility] [address] [address] Care Team Providers Care Farm Operations Technical Director Name Role Phone Justen Gale MD Primary Care Provider [phone] Encounter Details Date Type Department Care Team (Latest Contact Info) Description 03/29/2023 Travel Social History Tobacco Use Types Packs/Day [...] and heating? Not hard at all 02/22/2023 [facility] - Occupational Stress [...] place to sleep or slept in a alf (including now)? No 02/22/2023 Sex and Gender [...] on filedocumented in this encounter Care Teams Farm Operations Technical Director Relationship Specialty Start Date End Date Justen Gale MD PCP - General 07/05/21 documented as of this encounter
--- OUTSIDE RECORDS SUMMARY | 2024-04-26 02:31 | XMS_ITS | Encounter Summary ---
Author Organization [facility] Address [address] [place] [address] Care Team Providers Care Communications Officer Name Role Phone Justen Gale MD Primary Care Provider [phone] Reason for Visit * Reason Comments POST-OP PROBLEM Pt BIBEMS with c/o b ackpain following a surgery she had about a month ago. Pt was also here a week ago and was diagnosed with a UTI and was released yesterday with antibiotics and has been taking them but doesn't feel any better. Pt also states that she just found out she has a hematoma on her incision and Pt has a follow-up for her back on Monday. Pt reports feeling really weak and SOB since this morning and it's gotten worse throughout the day. Encounter Details Date Type Department Care Team (Late Contact Info) Description 03/25/2023 12:58 PM TRUCK RENTAL CLERK - 03/25/2023 1:48 PM [facility] Emergency [facility] EMERGENCY DEPARTMENT [address] [place] [id number] SOB (shortness of breath) Discharge Disposition: Left Against Medical Advice/Discontinued Care Social History Tobacco Use Types Packs/Day [...] you are drinking? Patient does not drink 3 Q3: How often do you have si x or more drinks on one occasion? Never 02/22/2023 Overall Financial Resource Strain (CARDIA) Answe r Date Recorded How hard is it for you to pa y for the very basics like food, housing, medical care, and heating? Not hard at all 02/22/2023 [facility] - Occupational Stress Questionnaire Answer Date [...] Sign Reading Time Taken Comments Blood Pressure 145/87 03/25/2023 11:11 AM TRUCK RENTAL CLERK Pulse 102 03/25/2023 11:11 AM TRUCK RENTAL CLERK Temperature 36.4 ??C (97.6 ??F) 03/25/2023 7:39 AM CS T Respiratory Rate 22 03/25/2023 11:11 AM TRUCK RENTAL CLERK Oxygen Saturation 97% 03/25/2023 11:11 AM TRUCK RENTAL CLERK Inhaled Oxygen Concentration - - Weight 123.8 kg (273 lb) 03/24/2023 10:51 PM TRUCK RENTAL CLERK Height 154.9 cm (5' 1 ) 03/24/2023 10:51 PM TRUCK RENTAL CLERK Body Mass Index 51.58 03/24/2023 10:51 PM TRUCK RENTAL CLERK documented in this encounter Functional Status Functional [...] SoloStar pen 40 (forty) Units once 02/25/2022 ONETOUCH ULTRA test strip 4 times daily [...] mouth once daily 07/17/2022 05/19/2023 HYDROcodone-acetaminop hen (Maria Stein) 10-325 MG tablet Take 1 (one) tablet [...] as of this encounter ED Notes * Maira Elizondo - 03/25/2023 12:57 PM CST AMA uploaded K RENTAL CLERK * Yeni Ramirez RN - 03/25/2023 12:42 PM CST Pt came to desk asking for an update. Pt spoke with this RN and PA. Results reviewed and presented concern for staying in ED to be evaluated. Pt states she would still like to leave ED and follow up on Monday with her surgeons office. Pt declined to sign AMA form and said she was calling her ride to go home. K RENTAL CLERK * Brady Gutierrez PA-Ana Laura - 03/25/2023 12:26 PM CST Medical Screening Exam 03/25/2023 12:26 PM Provider contact with the patient Karly Marques CC: POST-OP PROBLEM (Pt BIBEMS with c/o backpain following a surgery she had about a month ago. Pt was also here a week ago and was diagnosed with a UTI and was released yesterday with antibiotics and has been taking them but doesn't feel any better. Pt also states that she just found out she has ahematoma on her incision and Pt has a follow-up for her back on Monday. Pt reports feeling really weak and SOB since this morning and it's gotten worse throughout the day. ) Chief complaint narrative was entered by triage nurse, not by provider Provider in Triage HPI: Karly Marques is a 67 year old female PMH as below who presents with worsening lower back pain since being dx with a UTI. She reports having spinal surgery ~ a month ago and states she had a post op infx. She had a repeat CT recently that showed a hematoma along her surgical site. She has f/u on Monday for the hematoma to be evacuated but states she couldn't wait that long. She also reports SOB, generalized fatigue, body aches. She is requesting to leave without additional workup or evaluation. She declined signing the AMA form. Limited Chart History: Past Medical History: Diagnosis [...] THE BATTERY IN THE LOWER LUMBAR REGION Current Facility-Administered Medications Medication Dose Route Frequency Provider Last Rate Last Admin ??? 0.9% NaCl injection 3 mL 3 mL Intracatheter q8h Epi Solitario MD And ??? 0.9% NaCl injection 1-10 mL 1-10 mL Intracatheter PRN Epi Solitario MD ??? ondansetron (disintegrating) (Zofran ODT) tablet 4 mg 4 mg Oral q30 min PRN Epi Solitario MD 4 mg at 03/24/23 3561 Current Outpatient Medications Medication Sig Dispense Refill ??? amitriptyline (ELAVIL) 25 MG tablet at bedtime ??? exemestane (AROMASIN) 25 MG tablet Take 1 (one) tablet by mouth DAILY ??? HumaLOG KwikPen 100 UNIT/ML pen 22 (twenty two) Units 3 times daily before meals ??? hydroCHLOROthiazide (Microzide) 12.5 MG capsule Take 1 (one) capsule by mouth once daily ??? HYDROcodone-acetaminophen (Maria Stein) 7.5-325 MG tablet Take 1 (one) tablet [...] 4 MG/0.1ML nasal spray as needed ??? nitrofurantoin monohyd macro crystals (Macrobid) 100 MG capsule Take 1 (one) capsule by mouth 2times daily for 5 days 10 capsule 0 ??? ONETOUCH ULTRA test strip 4 times [...] Gale MD (Above may be pending completion) Review of Systems: Primary System Noted in HPI. Constitutional: No fevers or chills All other systems reviewed and are negative. Vital Signs reviewed in Triage BP 145/87 Pulse 102 Temp 97.6 ??F (36.4 ??C) Resp 22 Ht 1.549 m (5' 1 ) Wt 123.8 kg (273 lb) SpO2 97% Pertinent Physical Findings: Constitutional: vitals as above, WDWN Head: Head normocephalic, atraumatic Eyes: conjunctiva clear Neck: neck supple Resp: respirations even and unlabored Skin: warm, dry MSK: moves all extremities. Ambulating independently with a steady gait Neuro: A&O x 3 Complete physical exam is limited due to patient sitting in up right position in chair, lack of privacy in triage room, and time. MDM: I have reviewed all lab and imaging resulted ordered during this visit and available at the time ofthis note. Triage notes and available nursing notes reviewed. Previous medical record reviewed whenavailable. Management options include but not limited to: physical exam, laboratory testing, discussion with other providers. PLAN Diagnostic tests ordered: Orders Placed This Encounter Procedures ??? XR CHEST 1VW PORTABLE ??? CBC W AUTO DIFFERENTIAL ??? COMPREHENSIVE METABOLIC PANEL ??? URINALYSIS REFLEX MICROSCOPIC REFLEX CULTURE ??? URINE MICROSCOPIC ONLY REFLEX TO CULTURE ??? EKG 12-LEAD MEDICATIONS FOR CURRENT ENCOUNTER: SCHEDULED MEDICATIONS: 0.9% NaCl injection 3 mL, Intracatheter, q8h ?? [COMPLETED] acetaminophen (Tylenol) tablet 1,000 mg, Oral, Now ?? CONTINUOUS MEDICATIONS: PRN MEDICATIONS: 0.9% NaCl injection 1-10 mL, Intracatheter, PRN ?? ondansetron (disintegrating) (Zofran ODT) tablet 4 mg, Oral, q30 min PRN Based on the Medical Screening Exam performed and diagnostic tests at this time, further evaluationis indicated. However, the pt would like to leave AMA. Risks and benefits were discussed with the pt. She refused to sign the AMA form. Brady Gutierrez PA-C K RENTAL CLERK * Maira Elizondo - 03/25/2023 11:11 AM CST Provided w/ specimen cup K RENTAL CLERK * Maira Elizondo - 03/25/2023 10:36 AM CST Pt in waiting room, NAD noted, no request at this time. K RENTAL CLERK Maira Osei - 03/25/2023 9:28 AM CST Pt in waiting room, c/o pain from sitting and waiting, NAD noted. PA notified. K RENTAL CLERK * Maira Elizondo - 03/25/2023 7:41 AM CST Pt in waiting room, NAD noted, educated on waiting room process K RENTAL CLERK * Brittaney Nova RN - 03/24/2023 11:07 PM CST Pt BIBEMS with c/o backpain following a surgery she had about a month ago. Pt was also here a week ago and was diagnosed with a UTI and was released yesterday with antibiotics and has been taking them but doesn't feel any better. Pt also states that she just found out she has a hematoma on her incision and Pt has a follow-up for her back on Monday. Pt reports feeling really weak and SOB since this morning and it's gotten worse throughout the day. Hx of blood clots, not currently on blood thinners d/t scheduled procedure for Monday. Past Medical History: Diagnosis Date ??? Breast [...] THE BATTERY IN THE LOWER LUMBAR REGION K RENTAL CLERK documented in this encounter Plan of Treatment Not on file documented as of this encounter Procedures Procedure Name Priority Date/Time Associated Diagnosis Comments CARDIAC EKG ORDER 03/27/2023 2:3 0 PM TRUCK RENTAL CLERK URINE MICROSCOPIC ONLY REFLEX TO CULTURE STAT 03/25/2023 11:23 AM TRUCK RENTAL CLERK URINALYSIS REFLEX MICROSCOPIC REFLEX CULTURE STAT 03/25/2023 11:23 AM TRUCK RENTAL CLERK GLUCOSE - POINT OF CARE Routine 03/25/2023 9:27 AM TRUCK RENTAL CLERK CBC W AUTO DIFFERENTIAL STAT 03/24/2023 11:38 PM TRUCK RENTAL CLERK COMPREHENSIVE METABOLIC PANEL STAT 03/24/2023 11:38 PM TRUCK RENTAL CLERK EKG 12-LEAD STAT 03/24/2023 11:30 PM TRUCK RENTAL CLERK SOB (shortness of breath) XR CHEST 1VW PORTABLE STAT 03/24/2023 11:25 PM TRUCK RENTAL CLERK SOB (shortness of breath) documented in this encounter Results * CARDIAC EKG ORDER (03/27/2023 2:30 PM TRUCK RENTAL CLERK) Narrative 03/27/2023 2:30 PM TRUCK RENTAL CLERK Ordered by an unspecified provider. Scanned Document CARDIAC SERVICES ORD ERABLES * URINE MICROSCOPIC ONLY REFLEX TO CULTURE (03/25/2023 11:23 AM TRUCK RENTAL CLERK) Reflex Status Culture not indicated 03/25/2023 11:49 AM TRUCK RENTAL CLERK [facility] WBC UA 0-5 None Seen, 0-5 /HPF 03/25/2023 11:49 AM TRUCK RENTAL CLERK [facility] Squamous Epithelial Cells UA 3-5 None Seen, 0-2, 3-5 /HPF 03/25/2023 11:49 AM TRUCK RENTAL CLERK [facility] Mucus UA 1+ /LPF 03/25/2023 11:49 AM TRUCK RENTAL CLERK [facility] Urine URINE SPECIMEN OBTAINED BY CLEAN CATCH PROCEDURE / Unknown Collection / Unknown 03/25/2023 11:23 AM TRUCK RENTAL CLERK 03/25/[facility]23 11:[facility] 03[facility]25/2023 11:49 AM TRUCK RENTAL CLERK Brady Gutierrez PA-C LAB - URIN ALYSIS ORDERABLES [facility] [address] [place] [address], [facility] [phone] * (ABNORMAL) URINALYSIS REFLEX MICROSCOPIC REFLEX CULTURE (03/25/2023 11:23 AM TRUCK RENTAL CLERK) Color UA Yellow Straw, Yellow 03/25/2023 11:35 AM [facility] Clarity UA Slt Cloudy(A) Clear 03/25/2023 11:35 AM [facility] Specific [place] UA 1.025 1.005 - 1.030 03/25/2023 11:35 AM [facility] pH UA 5.0 5.0 - 8.0 pH 03/25/2023 11:35 AM [facility] Protein UA 1+(A) Negative 03/25/2023 11:35 AM [facility] Glucose UA 2+(A) Negative 03/25/2023 11:35 AM [facility] Ketone UA Negative Negative 03/25/2023 11:35 AM [facility] Bilirubin UA Negative Negative 03/25/2023 11:35 AM [facility] Blood UA Negative Negative 03/25/2023 11:35 AM [facility] Nitrite UA Negative Negative 03/25/2023 11:35 AM [facility] Leukocyte Esterase Negative Negative 03/25/2023 11:35 AM [facility] Urobilinogen UA Negative Negative mg/dL 03/25/2023 11:35 AM [facility] Urine URINE SPECIMEN OBTAINED BY CLEAN CATCH PROCEDURE / Unknown Collection / Unknown 03/25/2023 11:23 AM TRUCK RENTAL CLERK 03/25/2023 11:27 AM [facility] - 03/25/2023 11:35 AM TRUCK RENTAL CLERK Brady uGtierrez PA-C LAB - URIN ALYSIS ORDERABLES [facility] [address] [place] [address], [facility] [phone] * (ABNORMAL) GLUCOSE - POINT OF CARE (03/25/2023 9:27 AM TRUCK RENTAL CLERK) Glucose WB/POC 313(H) 70 - 115 mg/dL 03/25/2023 9:29 AM [facility] Specimen Type Cap Fingerstick 2022 9:29 AM [facility] Blood BLOOD SPECIMEN / Unknown 03/25/2023 9:27 AM TRUCK RENTAL CLERK 03/25/2023 9:29 AM TRUCK RENTAL CLERK Provider Unknown LAB - POINT OF CARE ORDERABLES Performing Organization Address City/[facility]/ZIP Co de Phone Number [address] [address], [facility] [phone] * (ABNORMAL) COMPREHENSIVE METABOLIC PANEL (03/24/2023 11:38 PM TRUCK RENTAL CLERK) BUN 17 7 - 26 mg/dL 03/25/2023 12:16 AM [facility] Creatinine 0.99(H) 0.56 - 0.96 mg/dL 03/25/2023 12:16 AM [facility] Sodium 135(L) 136 - 145 mmol/L 03/25/2023 12:16 AM [facility] Potassium 4.2 3.5 - 4.5 mmol/L 03/25/2023 12:16 AM [facility] Chloride 98 98 - 107 mmol/L 03/25/2023 12:16 AM [facility] CO2 26 22 - 29 mmol/L 03/25/2023 12:16 AM [facility] Glucose 352(H) 70 - 115 mg/dL 03/25/2023 12:16 AM [facility] Calcium 9.4 8.4 - 10.2 mg/dL 03/25/2023 12:16 AM [facility] Protein Total 8.5(H) 6.0 - 8.3 g/dL 03/25/2023 12:16 AM [facility] Albumin 3.3(L) 3.4 - 5.0 g/dL 03/25/2023 12:16 AM [facility] Bilirubin Total 0.4 0.2 - 1.2 mg/dL 03/25/2023 12:16 AM [facility] Alkaline Phosphatase 77 40 - 150 U/L 03/25/2023 12:16 AM [facility] ALT 17 5 - 55 U/L 03/25/2023 12:16 AM [facility] AST 23 5 - 34 U/L 03/25/2023 12:16 AM [facility] Anion Gap 11 6 - 16 03/25/2023 12:16 AM [facility] BUN/Creatinine Ratio 17 7 - 23 03/25/2023 12:16 AM [facility] Osmolality Calculated 296(H) 275 - 295 mOsm/kg 03/25/2023 12:16 AM [facility] Albumin/Globulin Ratio 0.6(L) 1.1 - 2.3 03/25/2023 12:16 AM [facility] eGFR by CKD-EPI 63(L) >=90 mL/min/1.7 3 m2 03/25/2023 12:16 AM [facility] Blood BLOOD SPECIMEN / Unknown Venipuncture / Unknown 03/24/2023 11:38 PM TRUCK RENTAL CLERK 03/24/2023 11:49 PM [facility] Epi Solitario MD LAB - CHEMISTRY ANGEL SPEARS [facility] ([place], [place]) Organization Address City/State/[facility] Co de Phone Number [address] [phone] [phone] * CBC W AUTO DIFFERENTIAL (03/24/2023 11:38 PM [facility]) WBC 10.3 3.5 - 10.5 10? 3 /uL 03/24/2023 11:54 PM [facility] RBC 4.66 3.80 - 5.20 10? 6 /uL 03/24/2023 11:54 PM [facility] Hemoglobin 13.6 12.0 - 15.6 g/dL 03/24/2023 11:54 PM [facility] Hematocrit 42.4 35.0 - 45.0 % 03/24/2023 11:54 PM [facility] MCV 91.0 80.7 - 98.3 fL 03/24/2023 11:54 PM [facility] MCH 29.2 26.7 - 34.0 pg 03/24/2023 11:54 PM [facility] MCHC 32.1 30.8 - 35.9 g/dL 03/24/2023 11:54 PM [facility] RDW-SD 44.3 36.0 - 50.0 fL 03/24/2023 11:54 PM [facility] RDW-CV 13.2 11.2 - 14.8 % 03/24/2023 11:54 PM [facility] Platelet Count 279 150 - 400 10? 3 /uL 03/24/2023 11:54 PM [facility] MPV 9.9 9.4 - 12.9 fL 03/24/2023 11:54 PM [facility] nRBC Absolute 0.00 0 10? 3 /uL 03/24/2023 11:54 PM [facility] nRBC Auto 0.0 0 /100 WBC 03/24/2023 11:54 PM [facility] Neutrophils % 63.9 35.0 - 70.0 % 03/24/2023 11:54 PM [facility] Lymphocytes % 24.2 20.0 - 43.0 % 03/24/2023 11:54 PM [facility] Monocytes % 8.1 5.0 - 13.0 % 03/24/2023 11:54 PM [facility] Eosinophils % 3.0 0.0 - 6.0 % 03/24/2023 11:54 PM [facility] Basophil % 0.4 0.0 - 2.0 % 03/24/2023 11:54 PM [facility] Neutrophils Absolute 6.59 1.60 - 7.00 10? 3 /uL 03/24/2023 11:54 PM [facility] Lymphocyte Absolute 2.50 1.10 - 3.90 10? 3 /uL 03/24/2023 11:54 PM [facility] Monocytes Absolute 0.83 0.26 - 1.07 10? 3 /uL 03/24/2023 11:54 PM TRUCK RENTAL CLERK [facility] Eosinophils Absolute 0.31 0.00 - 0.47 10? 3 /uL 03/24/2023 11:54 PM TRUCK RENTAL CLERK [facility] Basophils Absolute 0.04 0.00 - 0.08 10? 3 /uL 03/24/2023 11:54 PM TRUCK RENTAL CLERK [facility] Immature Granulocytes % 0.4 0.0 - 1.0 % 03/24/2023 11:54 PM TRUCK RENTAL CLERK [facility] Immature Granulocytes Absolute 0.04 03/24/2023 11:54 PM TRUCK RENTAL CLERK [facility] Blood BLOOD SPECIMEN / Unknown Venipuncture / Unknown 03/24/2023 11:38 PM TRUCK RENTAL CLERK 03/24/2023 11:49 PM TRUCK RENTAL CLERK Epi Solitario MD LAB - HEMATOLOGY ORD ERABLES [facility] [address] [place] [address], [facility] [phone] * EKG 12-LEAD (03/24/2023 11:30 PM TRUCK RENTAL CLERK) Ventricular Rate 101 BPM [facility] MUSE Atrial Rate 101 BPM [facility] MUSE P-R Interval 140 ms [facility] MUSE QRS Duration ms 82 ms [facility] MUSE Q-T Interval ms 344 ms [facility] MUSE QTC Calculation (Bezet) 446 ms [facility] MUSE Calculated P [employer] 14 degrees SL MUSE Calculated R [employer] -4 degrees [facility] MUSE Calculated T [employer] 59 degrees [facility] MUSE Interpretation EKG SINUS TACHYCARDIA WITH PREMATURE ATRIAL COMPLEXES OTHERWISE NORMAL ECG WHEN COMPARED WITH ECG OF 19-MAR-2023 13:57, PREMATURE ATRIAL COMPLEXES ARE NOW PRESENT NONSPECIFIC T WAVE ABNORMALITY NOW EVIDENT IN LATERAL LEADS Confirmed by WILMA ??KAYLYNN DURÁN ([id number]) on 04/02/2023 2:27:03 PM [facility] MUSE 03/24/2023 11:3 0 PM TRUCK RENTAL CLERK 04/02/2023 2:27 PM TRUCK RENTAL CLERK Epi Solitario MD ECG ORDERABLES [facility] MUSE * XR CHEST 1VW PORTABLE (03/24/2023 11:25 PM TRUCK RENTAL CLERK) Anatomical Region Laterality Modality Chest Radiographic Lizeth ging 03/24/2023 11:2 8 PM TRUCK RENTAL CLERK Impressions 03/24/2023 11:58 PM TRUCK RENTAL CLERK IMPRESSION: No acute pulmonary process. Report dictated by David Charlton MD, PhD (residential sales associate). Gume Perez MD have personally reviewed and interpreted this examination/study. > Interpreting Provider: Gume Bell MD on 03/24/2023 11:58 PM Narrative 03/24/2023 11:58 PM TRUCK RENTAL CLERK PROCEDURE: ??XR CHEST 1VW PORTABLE, DATE/TIME OF EXAM: ??03/24/2023 11:25 PM, LOCATION ??[facility] INDICATION: R06.02: SOB (shortness of breath) ADDITIONAL CLINICAL INFORMATION: Ordering Provider Reason For Exam: ??sob Technologist Note: Additional: COMPARISON: CT chest abdomen and pelvis from 02/10/2023. FINDINGS: Support devices: *Inferior approach spinal stimulator terminates in the midthoracic spine. There is no focal consolidation, pleural effusion, or pneumothorax. The mediastinal and cardiac contours are normal. No acute osseous abnormality is seen. Procedure Note Gume Bell MD - 03/25/2023 PROCEDURE: XR CHEST 1VW PORTABLE, DATE/TIME OF EXAM: 03/24/2023 11:25PM, LOCATION [facility] INDICATION: R06.02: SOB (shortness of breath) ADDITIONAL CLINICAL INFORMATION: Ordering Provider Reason For Exam: sob Technologist Note: Additional: COMPARISON: CT chest abdomen and pelvis from 02/10/2023. FINDINGS: Support devices: *Inferior approach spinal stimulator terminates in the midthoracicspine. There is no focal consolidation, pleural effusion, or pneumothorax. The mediastinal and cardiac contours are normal. No acute osseousabnormality is seen. IMPRESSION: No acute pulmonary process. Report dictated by David Charlton MD, PhD (residential sales associate). Gume Perez MD have personally reviewed and interpreted this examination/study. > Interpreting Provider: Gume Bell MD on 03/24/2023 11:58 PM Epi Solitario MD DIAGNOSTIC IMAGING O RDERABLES documented in this encounter Visit Diagnoses Diagnosis SOB (shortness of breath) Shortness of breath documented in this encounter Administered Medications Inactive Administered Medications - up to 3 most recent administrations Medication Order MAR Action Action Date Dose Rate Site 0.9% NaCl injection 1-10 mL 1-10 mL, Intracatheter, PRN, Other, peripheral line flush, Starting on Mon03/24/23 at 2308, Until 03/25/23 at 1448, Flush peripheral IV catheter with 1-10 mL of normal saline before and after medications and prn to clear blood from the line or to verify patency. 0.9% NaCl injection 3 mL 3 mL, Intracatheter, EVERY 8 HOURS, First dose on Mon03/24/23 at 2345, Until Discontinued, Flush peripheral IV catheter with 3 mL of normal saline every 8 hours. acetaminophen (Tylenol) tablet 1,000 mg 1,000 mg, Oral, NOW, 1 dose, On 03/25/23 at 1030, Patient preference for lesser PRN pain meds may be honored when the patient requests a less strong medication, a lower dose, or a less intrusive route of administration when the lesser drug, dose and route have been ordered for the patient. This patient request must be documented in the MAR. $ Given 03/25/2023 10:28 AM TRUCK RENTAL CLERK 1,000 mg ondansetron (disintegrating) (Zofran ODT) tablet 4 mg 4 mg, Oral, EVERY 30 MIN PRN, Nausea/Vomiting, 2 doses, Starting on Mon03/24/23 at 2311, Until 03/25/23 at 1448, Dissolved orally on tongue $ Given 03/24/2023 11:13 PM TRUCK RENTAL CLERK 4 mg documented in this encounter Active and Recently Administered Medications Times are shown in TRUCK RENTAL CLERK. Scheduled Medication Order 03/23/2023 03/24/2023 03/25/2023 0.9% NaCl injection 3 mL(Linked Group 1) 3 mL, Intracatheter, EVERY 8 HOURS, First dose on Mon03/24/23 at 2345, Until Discontinued, Flush peripheral IV catheter with 3 mL of normal saline every 8 hours. 2345 (Due) 0600 (Due) acetaminophen (Tylenol) tablet 1,000 mg (COMPLETED) 1,000 mg, Oral, NOW, 1 dose, On 03/25/23 at 1030, Patient preference for lesser PRN pain meds may be honored when the patient requests a less strong medication, a lower dose, or a less intrusive route of administration when the lesser drug, dose and route have been ordered for the patient. This patient request must be documented in the JUN. 1028 ($ Given - Prov ider: Sandra Cronin RN) PRN Medication Order 03/23/2023 03/24/2023 03/25/2023 0.9% NaCl injection 1-10 mL(Linked Group 1) 1-10 mL, Intracatheter, PRN, Other, peripheral line flush, Starting on Mon03/24/23 at 2308, Until 03/25/23 at 1448, Flush peripheral IV catheter with 1-10 mL of normal saline before and after medications and prn to clear blood from the line or to verify patency. ondansetron (disintegrating) (Zofran ODT) tablet 4 mg 4 mg, Oral, EVERY 30 MIN PRN, Nausea/Vomiting, 2 doses, Starting on Mon03/24/23 at 2311, Until 03/25/23 at 1448, Dissolved orally on tongue 2313 ($ Given - Provider: Brittaney Nova RN) Linked Groups Order Group 1: SALINE LOCK, INSERT AND MAINTAIN (CANCELED) Routine, CONTINUOUS, Starting on Mon03/24/23 at 2315, Until Specified, New collection And 0.9% NaCl injection 3 mLJump to med 3 mL, Intracatheter, EVERY 8 HOURS, First dose on Mon03/24/23 at 2345, Until Discontinued, Flush peripheral IV catheter with 3 mL of normal saline every 8 hours. And 0.9% NaCl injection 1-10 mLJump to med 1-10 mL, Intracatheter, PRN, Other, peripheral line flush, Starting on Mon03/24/23 at 2308, Until 03/25/23 at 1448, Flush peripheral IV catheter with 1-10 mL of normal saline before and after medications and prn to clear blood from the line or to verify patency. documented in this encounter Care Teams Communications Officer Relationship Specialty Start Date End Date Justen Gale MD PCP - General 07/05/21 documented as of this encounter
--- OUTSIDE RECORDS SUMMARY | 2024-04-26 02:31 | XMS_ITS | Encounter Summary ---
Author Organization [facility] Address [address] [facility] [place] [address] Care Team Providers Care Protector Plate Attacher Name Role Phone Justen Gale MD Primary Care Provider [phone] Reason for Visit * Reason Comments Low Back Pain Chronic low back rut n with pain down left leg worse for 4 days/pt had back stimulator placed 10 weeks ago/takes norco for pain with some initial relief * Auth/Cert (Routine) Specialty Diagnoses / Procedures Referred By Contac t Referred To Contact Referral ID Status Reason Start Date Expiration Date Visits Re quested Visits Authorized [id number] 1 1 Encounter Details Date Type Department Care Team (Latest Contact Info) Description 05/15/2023 8:48 PM INTERNATIONAL RELATIONS PROFESSOR - 05/20/2023 6:16 PM INTERNATIONAL RELATIONS PROFESSOR Hospital Encounter [facility] [address] [place] [address] [place] [address] [place] [address] [place] [address] [place] [address] Mary Velasquez MD [address] [id number] Anne Marie Poole MD [address] [facility] [address] [place] [id number] Internal Medicine Discharge Disposition: Home or Self [...] medical care, and heating? Somewhat hard 05/16/2023 [facility] - Occupational Stress [...] place to sleep or slept in a skilled nursing (including now)? No 05/16/2023 Sex and Gender Information Value Date Recorded Sex Assigned at Not on file Gender Identity Not on file Sexual Orientation Not on file documented as of this encounter Last Filed Vital Signs Vital Sign Reading Time Taken Comments Blood Pressure 116/77 05/20/2023 3:04 PM INTERNATIONAL RELATIONS PROFESSOR Pulse 80 05/20/2023 3:04 PM INTERNATIONAL RELATIONS PROFESSOR Temperature 36.5 ??C (97.7 ??F) 05/20/2023 3:04 PM CS T Respiratory Rate 18 05/20/2023 3:04 PM INTERNATIONAL RELATIONS PROFESSOR Oxygen Saturation 98% 05/20/2023 3:04 PM INTERNATIONAL RELATIONS PROFESSOR Inhaled Oxygen Concentration 21% 10:14 PM INTERNATIONAL RELATIONS PROFESSOR Weight 120.1 kg (264 lb 12.8 oz) 05/16/2023 5:08 PM INTERNATIONAL RELATIONS PROFESSOR Height 154.9 cm (5' 1 ) 05/16/2023 5:08 PM INTERNATIONAL RELATIONS PROFESSOR Body Mass Index 50.03 05/16/2023 5:08 PM INTERNATIONAL RELATIONS PROFESSOR documented in this encounter Functional Status Functional [...] as of this encounter Discharge Summaries * Anne Marie Poole MD - 05/20/2023 6:16 PM CST HOSPITALIST DISCHARGE SUMMARY NAME: Karly Marques : 1955 DATE OF ADMISSION: 05/15/2023 DATE OF DISCHARGE: 05/20/2023 FINAL DIAGNOSES: ??? Include all new and active diagnoses. 1. Acute on chronic lower back pain DISCHARGE DESTINATION: Home FOLLOW UP PLAN: Include list of active issues: ??? Next steps ? ? Testing & Referrals Scheduled: ? ? Testing & Referrals TBD: ??? Timing ??? Provider 1. Patient was advised to follow-up with ortho spine PENDING TEST RESULTS: N/A INCIDENTAL FINDINGS REQUIRING FOLLOW UP: N/A READMISSION RISK SCORE: 21+: high 30 day readmission risk 0-20: low-moderate 30 day readmission risk 26* at 2:58 PM 05/22/2023. Secondary/Resolved/Significant Prior Diagnoses: N/A PRESENTING HISTORY: Per Dr. Velasquez: Karly Marques is a 67 year old female with a pmhx significant for ??type 2 diabetes mellitus, breast cancer, chronic back pain status post spinal stimulator placement complicated by infection of the battery requiring replacement, LUL, depression, peripheral neuropathy,PE on AC. ??Patient present ed to the hospital with increasing lower back pain that started 4 days ago. ??Reports pain in the back radiating to left leg , unable to ambulate?? On admission patient was afebrile, hemodynamically stable.?Admission labs remarkable for e CC count of 10.8, hyperglycemia with glucose of 197 non-anion gap metabolic acidosis bicarb of 21 ??ED MDconsulted Neurosurgery, who did not recommend any imaging.?? But wanted patient to be admitted for pain control.?Patient was admitted to under IM service for further management.? ROS, PMHx, PSHx, Social Hx, and Family Hx reviewed HOSPITAL COURSE: (include consults and procedure details) Ortho Spine was consulted while admitted. MRI was unable to obtain due to spinal cord stimulator device. Ortho spine recommended outpatient follow-up with EMG. Patient was treated with IV pain meds and was eventually weaned to p.o.. She was discharged home. POA ACTIVATED STATUS: NO RADIOLOGY: (last 7 days) + additional pertinent studies N/A RECENT/NOTABLE LABS: include pertinent positives Recent Labs Component Name 05/16/23 0235 SODIUM 140 POTASSIUM 4.1 CHLORIDE 107 CO2 25 BUN 13 CREATININE 0.67 EGFR >90 Recent Labs Component Name 05/15/23 2201 WBC 10.8* HGB 12.8 HCT 40.4 PLTCOUNT 275 Recent Labs Component Name 02/21/23 1830 02/17/23 1838 02/16/23 1220 INR 1.0 1.0 1.2* VITALS/MENTAL STATUS/NOTIBLE EXAM FINDINGS Most recent weight: Weight: 120.1 kg (264 lb 12.8 oz) (05/16/23 1708) BP 116/77 (BP Cuff Size: A) Pulse 80 Temp 97.7 ??F (36.5 ??C) (Oral) Resp 18 Ht 1.549 m (5'1 ) Wt 120.1 kg (264 lb 12.8 oz) SpO2 98% Exam: GEN No acute distress. HEENT MMM. Sclera anicteric. NECK Supple. CHEST CTA&P B HEART RRR, Normal S1, S2. No murmurs. ABD Soft, NT, ND, +BS. EXT No edema NEURO Alert, oriented x 3, appropriately interactive. DISCHARGE MEDICATIONS AND ALLERGIES This list of medications is preliminary and tentative: please see the Patient Discharge Instructions for patients discharged home or the Facility Transfer Order for the final and accurate medication list. Current Discharge Medication List CONTINUE taking these medications which have NOT CHANGED Instructions Authorizing Provider amitriptyline 25 MG tablet Commonly known as: Elavil Take 1 (one) tablet by mouth at bedtime Reasons: for restless legs B-D ULTRAFINE III SHORT PEN 31G X 8 MM needle Generic drug: insulin pen needle Quantity Dispensed: 300 Each 4 times daily Mckenzie Johnston MD exemestane 25 MG tablet Commonly known as: Aromasin Take 1 (one) tablet by mouth DAILY HumaLOG KwikPen 100 UNIT/ML pen Generic drug: insulin lispro 22 (twenty two) Units 3 times daily before meals HYDROcodone-acetaminophen 10-325 MG tablet Commonly known as: [place] Quantity Dispensed: 12 tablet Take 1 (one) tablet by mouth every 8 hours as needed for Pain Takes 3-4 times a day Anne Marie Poole MD hydrOXYzine HCl 25 MG tablet Commonly known as: Atarax Quantity Dispensed: 30 tablet Take 1 (one) tablet by mouth 3 times daily as needed for Itching Estrella Dunbar MD Lantus SoloStar pen Generic drug: insulin glargine ADMINISTER 50 UNITS UNDER THE SKIN EVERY MORNING lidocaine 5 % patch Commonly known as: [...] 1 TABLET BY MOUTH TWICE DAILY Opal Orellana, CTRS-AUTOMATIC VULCANIZING OPERATOR Multivitamin Womens 50+ Adv Tabs Take 1 tablet by mouth once daily ONETOUCH DELICA PLUS 33G EXTRA FINE LANCET USE FOUR TIMES DAILY OneTouch Ultra test strip Generic drug: blood glucose 4 times daily oxyBUTYnin CR 24hr 15 MG tablet Commonly known as: Ditropan XL Quantity Dispensed: 90 tablet Take 1 (one) tablet by mouth once daily Opal Montero Esteban, CTRS-AUTOMATIC VULCANIZING OPERATOR rivaroxaban 20 MG tablet Commonly known as: Xarelto Take 1 (one) tablet by mouth daily with food Reasons: Blockage of Blood Vessel to Lung by a Particle, Blood Clot in a Deep Vein rOPINIRole 5 MG tablet Commonly known as: Requip TAKE 1 TABLET BY MOUTH EVERY NIGHT ALLERGIES: Allergies Allergen Reactions ??? Latex Rash [...] ??? Skin Adhesives Skin Reactions DISCHARGE INSTRUCTIONS Follow up Instructions Please continue to wear your home cpap/bipap during times of sleepiness, unless otherwise instructed. Some medications that you may have been prescribed or were used during a procedure may increase the chance of sleep apnea complications. Why you were hospitalized Your discharge diagnosis is: Lower back pain [] Follow up with Primary Care Provider (PCP) Our records show your Primary Care Provider (PCP) is Justen Gale MD. Follow Up Instructions for Patient: Within 5 Days from Discharge Follow up with provider Follow Up Instructions for Patient: Within 5 Days from Discharge ISOLATION PRECAUTIONS No active isolations. Isolation due to No active infections. I spent 35 minutes in addition to direct patient care summarizing this patient's hospital stay, reviewing and updating the inpatient problem list, reviewing discharge medications, instructions, discussing discharge care planand discharge follow up labs/studies/doctor visits with the patient and or POA/family. Anne Marie Poole MD RNATIONAL RELATIONS PROFESSOR documented in this encounter Discharge Instructions * Discharge Instructions* Melly Banks APRN-CNP - 05/19/2023 10:56 AM INTERNATIONAL RELATIONS PROFESSOR Neurosurgery Spine Follow Up: You will need to obtain a nerve conduction study test prior to an appointment with Dr. Gregg. An order for this test has been placed and you should be contacted to schedule this test. However, you may call [phone] to schedule the test yourself. Once the test has been scheduled, please call [phone] to schedule an appointment with Dr. Gregg RNATIONAL RELATIONS PROFESSOR documented in this encounter Medications at Time [...] Reasons: for restless legs 06/05/2023 HYDROcodone-acetaminoph en ([place]) 10-325 MG tabletIndications:Chron ic left-sided low back [...] as of this encounter Progress Notes * Zoey De La Rosa RN - 05/19/2023 11:42 PM CST Problem: Pain/Discomfort Goal: Patient exhibits reduced pain/discomfort as evidenced by pain scores Outcome: Progressing Problem: Fall Risk Goal: Fall risk and fall related injury risk are minimized (interventions related to the fall risk can be found in the flowsheet documentation) Outcome: Progressing Problem: General Goal: LTG - Patient will Description: Mod I for transfers with FWW Outcome: Progressing RNATIONAL RELATIONS PROFESSOR * Loree Reina, Graduate Nurse - 05/19/2023 6:49 PM CST Problem: Pain/Discomfort Goal: Patient exhibits [...] found in the flowsheet documentation) Outcome: Progressing RNATIONAL RELATIONS PROFESSOR * Anne Marie Poole MD - 05/19/2023 2:00 PM CST Hospitalist Progress Note Admit Date: 05/15/2023 Subjective: H/o RLS. Pain 10/31. BM yesterday. Interval History: Ms. Marques is a 67-year-old female with a history of spinal stimulator placement complicated by infection of the battery requiring replacement who was admitted with uncontrolled pain. Ortho spine recommending outpatient follow-up. Patient unable to get MRI due to stimulator. ??? 0.9% NaCl 3 mL Intracatheter q8h ??? acetaminophen 1,000 mg Oral TID ??? amitriptyline 25 mg Oral AT BEDTIME ??? exemestane 25 mg Oral AT BEDTIME ??? hydroCHLOROthiazide 25 mg Oral QDAY ??? insulin aspart 0-6 Units Subcutaneous TID WC ??? insulin aspart 10 Units Subcutaneous TID WC ??? insulin glargine 45 Units Subcutaneous QAM ??? lidocaine 1 patch Transdermal q24h ??? rivaroxaban 20 mg Oral QDAY WITH DINNER ??? tolterodine ER 24hr 2 mg Oral QDAY PRN Meds:??? SALINE LOCK, INSERT AND MAINTAIN AND 0.9% NaCl AND 0.9% NaCl ??? dextrose IV for hypoglycemia OR dextrose IV for hypoglycemia OR glucagon ??? diphenhydrAMINE ??? glucose (Diabetic Use) gel ??? hydrOXYzine HCl ??? methocarbamol ??? oxyCODONE (immediate release) OR oxyCODONE (immediate release) Objective: Temp: [97.3 ??F (36.3 ??C)-97.9 ??F (36.6 ??C)] 97.8 ??F (36.6 ??C) Pulse: [71-74] 71 Resp: [16-19] 16 BP: (113-128)/(71-79) 128/79 O2 %: [21 %] 21 %Weight change: Intake/Output Summary (Last 24 hours) at 05/19/2023 1400 Last data filed at 05/18/2023 1748 Gross per 24 hour Intake 466 ml Output -- Net 466 ml GEN No acute distress. HEENT MMM. Sclera anicteric. NECK Supple. CHEST CTA&P B HEART RRR, Normal S1, S2. No murmurs. ABD Soft, NT, ND, +BS. EXT No edema NEURO Alert, oriented x 3, appropriately interactive. Data Review Recent Labs Component Name 05/15/23220004/19/2325104/17/232058 WBC 10.8* 13.5* 10.0 HGB 12.8 11.5* 12.3 HCT 40.4 36.7 39.2 MCV 92.2 91.5 91.8 Recent Labs Component Name 05/16/2323405/15/23220004/19/2325103/24/23233703/22/238 03/20/235 03/19/23 1350 02/24/23 0233 CALCIUM 9.0 9.6 9.2 - 9.8 8.8 - 8.7 PHOS - - - - 3.3 2.9 - 2.5* - = values in this interval not displayed. Recent Labs Component Name 05/16/2323405/15/23220004/19/2325104/17/23205803/24/23233703/22/238 03/20/23 0355 NA - - - - 135* 137 138 CL - - - - 98 100 104 CO2 25 21* 26 - 24 BUN 13 15 25 - 17 14 9 CREATININE 0.67 0.76 0.86 - 0.99* 0.89 0.71 - = values in this interval not displayed. Recent Labs Component Name 05/15/23220004/19/2325104/17/23205803/24/23233703/22/238 03/20/23 0355 03/19/23 1350 PROT - - - 8.5* - 7.1 8.4* ALB - - - 3.3* 3.4 2.9* 3.4 ALKPHOS 74 63 72 77 - 65 75 AST 24 12 18 23 - 14 16 ALT 22 13 16 17 - 14 17 TBILI - - - 0.4 - 0.5 0.6 Recent Labs Component Name 02/21/23 1830 02/17/23 1838 02/16/23 1220 02/06/23 1330 02/06/23 1330 11/13/21 0107 11/12/21 1823 PT 13.2 12.7 15.0* - 25.7* 15.2* - INR 1.0 1.0 1.2* - 2.5* 1.2 - PTT - - - - 35.4 77.2* 70.9* - = values in this interval not displayed. Recent Labs Component Name 11/11/21 2238 11/05/21 1350 TROPONINI <0.010 <0.010 Assessment and Plan: #Uncontrolled lower back pain: Discontinue IV morphine. Continue p.o. oxycodone as needed for pain.Ortho spine recommended outpatient follow-up #DMII: A1c 8.6. Continue Lantus insulin, scale insulin for goal glucose of less than 180. #HTN: Continue hydrochlorothiazide #LUL: CPAP qhs #H/o PE: Continue Xarelto #H/o Breast cancer: Continue exemestane #H/o urinary incontinence: Continue Detrol LA Prophy: Xarelto F/E/N: Consistent carb diet Dispo: Discharge home tomorrow Code: Full Anne Marie Poole MD 05/19/2023 2:00 PM RNATIONAL RELATIONS PROFESSOR * Indigo Holguin [facility] - 05/19/2023 1:49 PM CST [facility] Pharmacy Services Admission Medication Review Karly Marques is a 67 year old female I have reviewed patient's home medication list with Lila Brizuela PharmD. Information obtained from [facility] fill history and confirmed with patient at bedside. Patient was reliable historian. The medication list is ready for re- review/order by physician. Medication List Revisions Medications Removed: Acetaminophen 500mg (patient states she does not take at home) Hydrochlorothiazide (no recent fill history, patient states provider said bp was stable and can dc) Methylprednisolone (short term completed) Medications Added: Multivitamin (Women's One a Day 50+) Medications Modified: None Of Note: Patient will need refills on amitriptyline, oxybutynin XL 15mg Patient wishes any new prescriptions at discharge to be sent to [facility] pharmacy in [place]. Prior to Admission medications Taking? Last Dose Medication Sig Yes Past Month amitriptyline (ELAVIL) 25 MG tablet Take 1 (one) tablet by mouth at bedtime Reasons:for restless legs 05/15/2023 at AM exemestane (AROMASIN) 25 MG tablet Take 1 (one) tablet by mouth DAILY 05/15/2023 at AM HumaLOG KwikPen 100 UNIT/ML pen 22 (twenty two) Units 3 times daily before meals 05/15/2023 at AM HYDROcodone-acetaminophen ([place]) 10-325 MG tablet Take 1 (one) tablet by mouth every 8 hours as needed for Pain Takes 3-4 times a day Yes Past Week hydrOXYzine HCl (Atarax) 25 MG tablet Take 1 (one) tablet by mouth 3 times daily as needed for Itching insulin pen needle (B-D ULTRAFINE III SHORT PEN) 31G X 8 MM needle 4 times daily Lancets (ONETOUCH DELICA PLUS 33G EXTRA FINE LANCET) USE FOUR TIMES DAILY 05/15/2023 at AM Lantus SoloStar pen ADMINISTER 50 UNITS UNDER THE SKIN EVERY MORNING 05/15/2023 at AM lidocaine (Lidoderm) 5 % patch Apply 1 (one) patch to skin every 24 hours Apply patch to most painful area and remove after 12 hours. May reapply a new patch 12 hours later. 05/15/2023 at AM methenamine hippurate (Hiprex) 1 GM tablet TAKE 1 TABLET BY MOUTH TWICE DAILY Yes 05/15/2023 at AM Multiple Vitamins-Minerals (Multivitamin Womens 50+ Adv) TABS Take 1 tablet by mouth once daily ONETOUCH ULTRA test strip 4 times daily Yes Past Month oxyBUTYnin CR 24hr (Ditropan XL) 15 MG tablet Take 1 (one) tablet by mouth once daily 05/15/2023 at AM rivaroxaban (Xarelto) 20 MG tablet Take 1 (one) tablet by mouth daily with food Reasons: Blockage of Blood Vessel to Lung by a Particle, Blood Clot in a Deep Vein 05/14/2023 at PM rOPINIRole (REQUIP) 5 MG tablet TAKE 1 TABLET BY MOUTH EVERY NIGHT Thank you for the opportunity to take part of Karly Marques's care. Indigo Holguin, basket grader RNATIONAL RELATIONS PROFESSOR Associated attestation - Lila Brizuela PharmD - 05/19/2023 1:54 PM INTERNATIONAL RELATIONS PROFESSOR I was present during the patient interview and agree with the changes noted below. Patient asked if her ropinirole was a high dose, as many doctors seem surprised when she states sheis on 5 mg QHS. Discussed risk of dopaminergic augmentation with ropinirole is more likely at dosesexceeding 4 mg/day. Encouraged patient to discuss possibly reducing dose to 4 mg daily or splittingdose into 2 mg BID. Also discussed other medications available to lessen dose of ropinirole such as gabapentin to be discussed further with her PCP. Lila Brizuela, YordyD [phone] * Sonali Matias, OT - 05/19/2023 1:46 PM CST Occupational Therapy Initial Evaluation OT orders received. Chart reviewed for diagnosis and medical systems review. Nursing consented for OT. Patient consented to participate in therapy. RECOMMENDATIONS/PLAN: Patient would benefit from continued OT to increase independence and safety with ADLt asks Discharge OT Discharge Recommendations: Patient would benefit from multidisciplinary therapy - pending progress in acute care AM-PAC Daily Activity score for this patient is Daily Activity Raw Score:: 14 Admit: 1. Chronic left-sided low back pain with left-sided sciatica SUBJECTIVE: Patient was agreeable to participating in OT evaluation. Psychosocial: Patient Behaviors: Cooperative Occupational Profile/PLOF: Type of Residence: Private Residence Lives with:: Daughter Home Structure: One Story;Basement Steps to Enter: 2 (no rail) Primary Bedroom: First Floor Primary Bathroom: First Floor Equipment at Home: Cane-Straight;CPAP;Walker-2 Wheeled;Wheelchair-Standard;Chair-Shower;Commode-Bedside;Grab Bars Mobility: Ambulate-In Home ;With Assistive Device (wwr) Fallen Within 6 Mos: 1 Have Help at Home?: Yes, there is help at home now How often is assistance provided?: daughter is her unit control worker and assists with dressing, bathing,and IADLs Activity at Home: Sedentary Who manages medications?: (daughter) Pain Assessment: Pain Location #1 Pain Rating Score #1: 7 Pain Location : Back Pain Orientation: Lower OBJECTIVE: Cognition: Orientation Level: Oriented X4 Level of Consciousness-Adult: Alert;Eyes Open Spontaneously Cognition: Follows Commands-Consistent;Attention/concentration-normal for age;Processing-Appropriate;Safety awareness-appropriate;Judgement-appropriate UE Assessment: RUE: WNL LUE: 4/5 grossly; FMC mildly impaired compared to R hand ADLs (Based on observation and clinical judgement): Feeding: Complete [place] Oral Facial Hygiene: Set-up (seated) Upper Body Dressing: Moderate Assistance Lower Body Dressing: Total Assistance Transfers: Sit to Stand: Stand By Assist;Minimal Assistance Stand to Sit: Stand By Assist;Minimal Assistance Pt educated in OT plan of care, fall precautions, and benefits of participating in ADL tasks. Refer to the Plan of Care for OT goals. Please refer to Filed Flowsheet OT Evaluation for further details. INTERVENTION/ASSESSMENT: Patient was seated EOB upon arrival. Reported having a lot of pain in her back but was agreeable to participating in OT evaluation. RN was notified of pain. She participated in dressing tasks. Required total A to don socks and stated her daughter normally dons her LB clothing at home. She ambulated ~15 feet to chair using wwr with MIN A. She presented with decreased strength and coordination in her LUE. Stated her L arm has been weak for the past 6-7 days. RN was notified. She was positioned for comfort in chair at end of evaluation and was left with call light and phone within reach. --Problem list: Decreased strength, decreased endurance, decreased balance, impaired functional mobility, decreased coordination, pain. --Functional limitation: Decreased independence with transfers; decreased ability to perform ADLs, decreased UE strength, decreased safety with functional mobility. --Rationale for therapy: Patient will benefit from OT to address the above issues. Patient will be seen for: ADL retraining, functional transfers, balance, endurance, exercise. All lines, monitors, IV's, equipment in place and intact pre and post visit. If this is the last OT visit, this note serves as the discharge summary Ascom [phone] RNATIONAL RELATIONS PROFESSOR * Kathryn Valencia, PT - 05/19/2023 1:27 PM CST Physical Therapy Evaluation. PT orders received, chart reviewed for diagnosis and medical systems review.. Nursing consents for PT. Explained purpose of PT and patient consented to participate in therapy. Admitting Diagnosis: 1. Chronic left-sided low back pain with left-sided sciatica RECOMMENDATIONS/PLAN: Discharge PT Discharge Recommendations: Patient would benefit from multidisciplinary therapy AM-PAC Basic mobility score for this patient is Mobility Raw Score:: 15 SUBJECTIVE: Nursing consents for PT. Patient found alert and agreeable to participate in therapy. I'm gonna lean forward, It helps the pain Home Situation: Type of Residence: Private Residence Lives with:: Daughter Steps to Enter: 2 (no rail) Home Structure: One Story;Basement Primary Bedroom: First Floor Primary Bathroom: First Floor Equipment at Home: Cane-Straight;CPAP;Walker-2 Wheeled;Wheelchair-Standard;Chair-Shower;Commode-Bedside;Grab Bars Prior Level of Functioning: Mobility: Ambulate-In Home ;With Assistive Device Fallen Within 6 Mos: 1 Have Help at Home?: Yes, there is help at home now How often is assistance provided?: daughter is her unit control worker and assists with dressing, bathing,and IADLs Pain Assessment: Pain Location #1 Pain Scale/Observation: Numeric (0-10) Pain Rating Score #1: 7 Pain Location : Back Pain Orientation: Lower Patient/family stated goal: to increase strength and independence OBJECTIVE: Cognition: Orientation Level: Oriented X4 Cognition: Follows Commands-Consistent;Attention/concentration-normal for age;Processing-Appropriate;Safety awareness-appropriate;Judgement-appropriate Level of Consciousness-Adult: Alert;Eyes Open Spontaneously Participation: Active Participation Precautions: Fall Risk ROM and Strength: AROM - Right Lower Extremity: Within Functional Limits PROM - Right Lower Extremity: Within Functional Limits Strength - Right Lower Extremity: Within Functional Limits (grossly 3+/5) AROM - Left Lower Extremity: Exceptions Strength - Left Lower Extremity: (grossly 3-/5) Bed Mobility: Supine to Sit: Minimal Assistance Sit to Supine: Activity Does Not Occur Transfers: Sit to Stand: Stand By Assist;Minimal Assistance Stand to Sit: Stand By Assist;Minimal Assistance Mobility: Distance Ambulated: 15 FEET Ambulation: Assistive Device: Gait Belt;Walker-2 Wheeled Ambulation: Level of Assistance: Minimum Assistance Ambulation: Gait Deviations: Antalgic Weight Bearing Status-LLE: Weight Bearing as Tolerated Weight Bearing Status-RLE: Weight Bearing as Tolerated Weight Bearing Status-LUE: Weight Bearing as Tolerated Weight Bearing Status-RUE: Weight Bearing as Tolerated Stairs: Number: 0 Activity Tolerance/Oxygen Requirements and Vitals: $ O2 DEVICE: Room Air ASSESSMENT: Pt found alert and agreeable to PT evaluation this date. Exhibiting fair tolerance to OOB mobility. Overall, this pt demonstrates decreased strength, balance, and endurance impairing safety and independence with functional mobility such as transfers/ambulation. They will benefit from skilled PT intervention during acute stay to improve above listed deficits with the goal to increase independence, decreased burden of care, and return to prior level of function. Following completion of session, the patient is positioned for comfort in the recliner with call light and phone within reach. Chair alarm reactivated. All lines, monitors, IV's, equipment in place and intact pre and post visit. Nurse informed about today's treatment session. Refer to Plan of Care for PT goals. Please refer to Filed Flowsheet PT Evaluation for further details. If this is the last PT visit, this note serves as the discharge summary. IQRA Peralta x [phone] RNATIONAL RELATIONS PROFESSOR * Melly Banks APRN-AUTOMATIC VULCANIZING OPERATOR - 05/19/2023 9:44 AM CST Neurosurgery Progress Note Karly Marques 05/19/23 Hospital Day: 4 Subjective: NAEON. Reports left hip/leg pain unchanged. Would like to go home tomorrow if possible. Discussed the need to be off IV narcotics for that to occur. Recent/Significant Events: 05/16: Patient is a 67y/o female, w/ PMH of refractory axial low back pain s/p T8-9 laminectomy for placement of spinal stimulator (with Dr. Gregg in 02/13),??DVT/PE (on Xarelto), GERD, DM and LUL, who presented to [facility] ED on 05/16/23 w/ c/o acute on chronic back pain for 3 days.??Pain radiates from left low back to left hip and down entire left leg. Associated with weakness and heaviness Stephanie starting 4 days ago. Patient reports urinary incontinence secondary to inability to walk from pain. Denies any injury or trauma.??Patient was admitted for pain control. Per chart review, last month, patient had similar presentation and symptoms improved with pain control without any further inte rvention. Objective: T: 97.8 ??F (36.6 ??C) [Temp Min: 97.3 ??F (36.3 ??C) Max: 97.9 ??F (36.6 ??C)] BP: 128/79[BP Min: 113/71 Max: 149/86] MAP: 95[MAP (mmHg) Min: 85 Max: 107] HR: 71[Pulse Min: 71 Max: 74] RR: 16[Resp Min: 16 Max: 19] Sat: 97 %[SpO2 Min: 96 % Max: 99 %] Input/Output: 05/18 0701 - 05/19 0700 In: 966 [P.O.:966] Out: - PAIGE/Other Drain: n/a Labs: Recent Labs Component Name 05/15/23 2201 WBC 10.8* HGB 12.8 HCT 40.4 PLTCOUNT 275 Recent Labs Component Name 05/16/23 0235 04/17/23 2059 03/24/23 2338 NA - - 135* POTASSIUM 4.1 - 4.2 CO2 25 - 26 BUN 13 - 17 CREATININE 0.67 - 0.99* CALCIUM 9.0 - 9.4 GLUCOSE 174* - 352* - = values in this interval not displayed. Recent Labs Component Name 02/21/23 1830 02/16/23 1220 02/06/23 1330 INR 1.0 - 2.5* PTT - - 35.4 - = values in this interval not displayed. Imaging: no new imaging Diet: DIET DIABETIC CONSIST CARB Fluids: Per primary team MEDICATIONS FOR CURRENT ENCOUNTER: SCHEDULED MEDICATIONS: 0.9% NaCl injection 3 mL, Intracatheter, q8h acetaminophen (Tylenol) tablet 1,000 mg, Oral, TID amitriptyline (Elavil) tablet 25 mg, Oral, AT BEDTIME hydroCHLOROthiazide (Hydrodiuril) tablet 25 mg, Oral, QDAY insulin aspart (NovoLOG) pen 0-6 Units, Subcutaneous, TID WC insulin glargine (Lantus) pen 45 Units, Subcutaneous, QAM lidocaine (Lidoderm) 5 % patch 1 patch, Transdermal, q24h rivaroxaban (Xarelto) tablet 20 mg, Oral, QDAY WITH DINNER ?? tolterodine ER 24hr (Detrol LA) capsule 2 mg, Oral, QDAY ?? CONTINUOUS MEDICATIONS: PRN MEDICATIONS: Or Or Or 0.9% NaCl injection 1-10 mL, Intracatheter, PRN dextrose 10 % IV bolus, Intravenous, PRN dextrose 10 % IV bolus, Intravenous, PRN diphenhydrAMINE (Benadryl) capsule 25 mg, Oral, q6h PRN glucagon (Glucagen) injection 1 mg, Subcutaneous, PRN glucose (Diabetic Use) oral gel, Oral, PRN hydrOXYzine HCl (Atarax) tablet 25 mg, Oral, TID PRN methocarbamol (Robaxin) tablet 750 mg, Oral, q6h PRN morphine injection 4 mg, Intravenous, q3h PRN oxyCODONE (immediate release) (Roxicodone) tablet 10 mg, Oral, q4h PRN ?? oxyCODONE (immediate release) (Roxicodone) tablet 5 mg, Oral, q4h PRN Neuro: Mental status: Alert, attentive, and oriented. Speech is clear and fluent. Cranial nerves: Grossly intact Motor: Muscle bulk and tone are normal. ?? Hip Flexor Quad Hamstring Tib Ant Gastroc EHL Right 5 5 5 5 5 5 Left 4+ 5 5 5 5 5 Pain related weakness Reflexes: ?? Patellar Right 1+ Left 1+ Sensory: light touch intact to BLE Coordination: There are no abnormal or extraneous movements. Gait/Stance: deferred Assessment: 67 year old??female??with chronic axial low back pain s/p T8-9 laminectomy for placement of spinal stimulator (with Dr. Gregg in 02/13) who presented to [facility] ED on 05/15/23 w/ c/o acute on chronic low back pain??which radiates down her left leg??for 3 days. Associated with weakness and heaviness to left leg as well. Neurologically, she has minor weakness to her left hip flexor which may be related to pain. Her incisions are completely healed without evidence of infection. The??stimulator rep ([employer]) has been contacted to make adjustments to her device today, which is MRI compatible. Given new onset of left lower extremities weakness, will obtain MRI t/lspine to rule out any new pathology. Unfortunately, MRI unable to be obtained secondary to high impedence on the spinal cord stimulator device. Given this, would recommend pain control and outpatient follow up. Plan: - As MRI unable to be obtained, recommend outpatient follow up with EMG prior - Recommend Oxy q4-6h prn + scheduled Robaxin + scheduled Tylenol + Lidoderm patches - Wean IV narcotics as able - Continue to monitor neuro exam - Activity:??As tolerated - Overall care per primary team?? Once patient is discharged, EMG/NCS will be ordered outpatient and patient will follow up with Dr. Gregg following this. Discussed with attending, Dr. Marysol Banks, CTRS-AUTOMATIC VULCANIZING OPERATOR 9:44 AM 05/19/23 Ascom Pager RNATIONAL RELATIONS PROFESSOR * Haydee Valadez RN - 05/19/2023 6:05 AM CST Problem: Pain/Discomfort Goal: Patient exhibits reduced pain/discomfort as evidenced by pain scores Outcome: Progressing Goal: Patient uses pharmacological and non-pharmacological pain management strategies. Outcome: Progressing Goal: Patient verbalizes acceptable level of pain relief and ability to engage in desired activity. Outcome: Progressing RNATIONAL RELATIONS PROFESSOR * Rosa Fuentes RN - 05/18/2023 6:20 PM CST Problem: Pain/Discomfort Goal: Patient exhibits [...] found in the flowsheet documentation) Outcome: Progressing RNATIONAL RELATIONS PROFESSOR * Tamika Funez RN - 05/18/2023 5:48 PM CST This RN was present for all medication administration and assessments performed by Rosa, the orienting RN, today. RNATIONAL RELATIONS PROFESSOR * Jamie Lake MD - 05/18/2023 11:01 AM CST Hospitalist Progress Note Admit Date: 05/15/2023 8:48 PM Hospital Day: 3 Clinical Course Karly Marques is a 67 year old female with a pmhx significant for ??type 2 diabetes mellitus, breast cancer, chronic back pain status post spinal stimulator placement complicated by infection of the battery requiring replacement, LUL, depression, peripheral neuropathy,PE on AC. ??Patient present ed to the hospital with increasing lower back pain that started 4 days ago. ??Reports pain in the back radiating to left leg , unable to ambulate?? No surgical intervention per orthospine - therapy and outpatient f/u after pain is controlled. New Symptoms States pain is a little better Would like to walk Exam Vitals: 05/17/23 2038 05/18/23 0452 05/18/23 0731 05/18/23 1023 BP: 118/76 135/85 139/87 149/86 Pulse: 78 72 73 Resp: 18 18 Temp: 98.1 ??F (36.7 ??C) 97.7 ??F (36.5 ??C) 97.6 ??F (36.4 ??C) SpO2: 93% 95% 99% Weight: Height: General appearance: in no acute distress, cooperative Eyes: sclerae anicteric, conjunctivae pink Lungs: non labored breaths, clear to auscultation Heart: regular rate and rhythm Abdomen: soft and non tender Extremities: moves all extremities, without edema Neuro: non focal exam, conversational Skin: normal for ethnicity, no rashes Data Reviewed all labs and imaging MEDICATIONS FOR CURRENT ENCOUNTER: ?? SCHEDULED MEDICATIONS: ??? 0.9% NaCl 3 mL Intracatheter q8h ??? acetaminophen 1,000 mg Oral TID ??? amitriptyline 25 mg Oral AT BEDTIME ??? hydroCHLOROthiazide 25 mg Oral QDAY ??? insulin aspart 0-6 Units Subcutaneous TID WC ??? insulin glargine 45 Units Subcutaneous QAM ??? lidocaine 1 patch Transdermal q24h ??? rivaroxaban 20 mg Oral QDAY WITH DINNER ??? tolterodine ER 24hr 2 mg Oral QDAY ?? PRN MEDICATIONS: ??? SALINE LOCK, INSERT AND MAINTAIN AND 0.9% NaCl AND 0.9% NaCl ??? dextrose IV for hypoglycemia OR dextrose IV for hypoglycemia OR glucagon ??? diphenhydrAMINE ??? glucose (Diabetic Use) gel ??? hydrOXYzine HCl ??? methocarbamol ??? morphine ??? oxyCODONE (immediate release) OR oxyCODONE (immediate release) Assessment and Plan Low back pain with radiation to the left lower extremity History of spinal stimulator -??continue pain regimen with home dose [place] 10 q.6 p.r.n. for severe pain, p.r.n. IV morphine q.4hours if pain is not controlled with oral agents Scheduled tylenol -??appreciate orthospine input - PT/OT - continue lidocaine patch - advised to use oxycodone prn instead of morphine ?? Type 2 diabetes mellitus-??Lantus 45 units plus LDSS, hold 15 U tid with meals novolog LUL on CPAP-??continue CPAP Hypertension??-??continue home hydrochlorothiazide History of breast cancer-??continue exemestane History of??PE -??continue home Xarelto Chronic urinary incontinence??-??continue home medications DVT ppx - on xarelto Disposition: Pending clinical course . Home on DC pending pain control Jamie Lake MD Date of Service: 05/18/23 Patient was seen by me on 05/18 at around 0940 RNATIONAL RELATIONS PROFESSOR * Melly Banks, ZAMZAM-AUTOMATIC VULCANIZING OPERATOR - 05/18/2023 7:17 AM CST Neurosurgery Progress Note Karly Marques 05/18/23 Hospital Day: 3 Subjective: NAEON. Reports left hip/leg pain unchanged. Would like to wean off IV narcotics if possible. Recent/Significant Events: 05/16: Patient is a 67y/o female, w/ PMH of refractory axial low back pain s/p T8-9 laminectomy for placement of spinal stimulator (with Dr. Gregg in 02/13),??DVT/PE (on Xarelto), GERD, DM and LUL, who presented to [facility] ED on 05/16/23 w/ c/o acute on chronic back pain for 3 days.??Pain radiates from left low back to left hip and down entire left leg. Associated with weakness and heaviness Stephanie starting 4 days ago. Patient reports urinary incontinence secondary to inability to walk from pain. Denies any injury or trauma.??Patient was admitted for pain control. Per chart review, last month, patient had similar presentation and symptoms improved with pain control without any further inte rvention. Objective: T: 97.7 ??F (36.5 ??C) [Temp Min: 97.5 ??F (36.4 ??C) Max: 98.1 ??F (36.7 ??C)] BP: 135/85[BP Min: 118/76 Max: 135/85] MAP: 102[MAP (mmHg) Min: 90 Max: 102] HR: 72[Pulse Min: 72 Max: 83] RR: 18[Resp Min: 16 Max: 18] Sat: 93 %[SpO2 Min: 93 % Max: 99 %] Input/Output: 05/17 0701 - 05/18 0700 In: 480 [P.O.:480] Out: - PAIGE/Other Drain: n/a Labs: Recent Labs Component Name 05/15/23 2201 WBC 10.8* HGB 12.8 HCT 40.4 PLTCOUNT 275 Recent Labs Component Name 05/16/23 0235 04/17/239 03/24/23 2338 NA - - 135* POTASSIUM 4.1 - 4.2 CO2 - BUN 13 - 17 CREATININE 0.67 - 0.99* CALCIUM 9.0 - 9.4 GLUCOSE 174* - 352* - = values in this interval not displayed. Recent Labs Component Name 02/21/23 1830 02/16/23 1220 02/06/23 1330 INR 1.0 - 2.5* PTT - - 35.4 - = values in this interval not displayed. Imaging: no new imaging Diet: DIET DIABETIC CONSIST CARB Fluids: Per primary team MEDICATIONS FOR CURRENT ENCOUNTER: SCHEDULED MEDICATIONS: 0.9% NaCl injection 3 mL, Intracatheter, q8h acetaminophen (Tylenol) tablet 650 mg, Oral, TID amitriptyline (Elavil) tablet 25 mg, Oral, AT BEDTIME hydroCHLOROthiazide (Hydrodiuril) tablet 25 mg, Oral, QDAY insulin aspart (NovoLOG) pen 0-6 Units, Subcutaneous, TID WC insulin glargine (Lantus) pen 45 Units, Subcutaneous, QAM rivaroxaban (Xarelto) tablet 20 mg, Oral, QDAY WITH DINNER tolterodine ER 24hr (Detrol LA) capsule 2 mg, Oral, QDAY ?? [COMPLETED] ondansetron (disintegrating) (Zofran ODT) tablet 4 mg, Oral, Once ?? CONTINUOUS MEDICATIONS: PRN MEDICATIONS: Or Or 0.9% NaCl injection 1-10 mL, Intracatheter, PRN dextrose 10 % IV bolus, Intravenous, PRN dextrose 10 % IV bolus, Intravenous, PRN diphenhydrAMINE (Benadryl) capsule 25 mg, Oral, q6h PRN glucagon (Glucagen) injection 1 mg, Subcutaneous, PRN glucose (Diabetic Use) oral gel, Oral, PRN HYDROcodone-acetaminophen ([place]) 10-325 MG tablet 1 tablet, Oral, q6h PRN hydrOXYzine HCl (Atarax) tablet 25 mg, Oral, TID PRN methocarbamol (Robaxin) tablet 750 mg, Oral, q6h PRN ?? morphine injection 4 mg, Intravenous, q3h PRN Neuro: Mental status: Alert, attentive, and oriented. Speech is clear and fluent. Cranial nerves: Grossly intact Motor: Muscle bulk and tone are normal. ?? Hip Flexor Quad Hamstring Tib Ant Gastroc EHL Right 5 5 5 5 5 5 Left 4+ 5 5 5 5 5 Pain related weakness Reflexes: ?? Patellar Right 1+ Left 1+ Sensory: light touch intact to BLE Coordination: There are no abnormal or extraneous movements. Gait/Stance: deferred Assessment: 67 year old??female??with chronic axial low back pain s/p T8-9 laminectomy for placement of spinal stimulator (with Dr. Gregg in 02/13) who presented to [facility] ED on 05/15/23 w/ c/o acute on chronic low back pain??which radiates down her left leg??for 3 days. Associated with weakness and heaviness to left leg as well. Neurologically, she has minor weakness to her left hip flexor which may be related to pain. Her incisions are completely healed without evidence of infection. The??stimulator rep ([employer]) has been contacted to make adjustments to her device today, which is MRI compatible. Given new onset of left lower extremities weakness, will obtain MRI t/lspine to rule out any new pathology. Unfortunately, MRI unable to be obtained secondary to high impedence on the spinal cord stimulator device. Given this, would recommend pain control and outpatient follow up. Plan: - As MRI unable to be obtained, recommend outpatient follow up with EMG prior - Recommend Oxy q4-6h prn + scheduled Robaxin + scheduled Tylenol + Lidoderm patches - Wean IV narcotics as able - Continue to monitor neuro exam - Activity:??As tolerated - Overall care per primary team?? Discussed with attending, Dr. Marysol Banks, ZAMZAM-AUTOMATIC VULCANIZING OPERATOR 7:17 AM 05/18/23 Ascom Pager RNATIONAL RELATIONS PROFESSOR * Gabbie Abebe RN - 05/18/2023 6:42 AM CST Problem: Fall Risk Goal: Fall risk and fall related injury risk are minimized (interventions related to the fall risk can be found in the flowsheet documentation) Outcome: Progressing RNATIONAL RELATIONS PROFESSOR * Stephenie Alvarez RN - 05/17/2023 1:12 PM CST Care Coordination Progress Note Anticipated level of care at discharge: Home: Anticipated level of care provider: None: Anticipated Discharge Date: 01/25/24: Discharge Plan: new to my caseload. AO4 with a spine stimulator. Lives home with daughter. Here forlow back pain, radiating to LLE. Cannot get MRI d/t stimulator. Neurosurgery recommending Outpatient follow up after EMG. PT/OT to see and assess. Orientation Level: Oriented X4: Family Support (Name and Phone): Extended Emergency Contact Information Primary Emergency Contact: Jimmie Marques Address: [address] [place] [address] [place] [address] Relation: Spouse Secondary Emergency Contact: Yunior Velez Mobile Relation: Daughter Transportation at Discharge: Family (daughter): READMISSION RISK SCORE is 27 at 1:12 PM 05/17/2023.: Name: Stephenie Alvarez RN RNATIONAL RELATIONS PROFESSOR * Jamie Lake MD - 05/17/2023 9:50 AM CST Hospitalist Progress Note Admit Date: 05/15/2023 8:48 PM Hospital Day: 2 Clinical Course Karly Marques is a 67 year old female with a pmhx significant for ??type 2 diabetes mellitus, breast cancer, chronic back pain status post spinal stimulator placement complicated by infection of the battery requiring replacement, LUL, depression, peripheral neuropathy,PE on AC. ??Patient present ed to the hospital with increasing lower back pain that started 4 days ago. ??Reports pain in the back radiating to left leg , unable to ambulate?? New Symptoms Continues to have pain Could not get MRI due to spinal stimulator Exam Vitals: 05/16/23199905/16/23 2344 05/17/23 0042 05/17/23 0837 BP: 112/64 126/72 126/75 Pulse: 79 82 85 79 Resp: 18 18 18 Temp: 98.1 ??F (36.7 ??C) 98 ??F (36.7 ??C) 97.9 ??F (36.6 ??C) SpO2: 93% 93% 95% 99% Weight: Height: General appearance: in no acute distress, cooperative Eyes: sclerae anicteric, conjunctivae pink Lungs: non labored breaths, clear to auscultation Heart: regular rate and rhythm Abdomen: soft and non tender Extremities: moves all extremities, without edema Neuro: non focal exam, conversational Skin: normal for ethnicity, no rashes Data Reviewed all labs and imaging MEDICATIONS FOR CURRENT ENCOUNTER: ?? SCHEDULED MEDICATIONS: ??? 0.9% NaCl 3 mL Intracatheter q8h ??? acetaminophen 650 mg Oral TID ??? amitriptyline 25 mg Oral QDAY AT 1000 ??? hydroCHLOROthiazide 25 mg Oral QDAY ??? insulin aspart 0-6 Units Subcutaneous TID WC ??? insulin aspart 15 Units Subcutaneous TID WC ??? insulin glargine 45 Units Subcutaneous QAM ??? rivaroxaban 20 mg Oral QDAY WITH DINNER ??? tolterodine ER 24hr 2 mg Oral QDAY ?? PRN MEDICATIONS: ??? SALINE LOCK, INSERT AND MAINTAIN AND 0.9% NaCl AND 0.9% NaCl ??? dextrose IV for hypoglycemia OR dextrose IV for hypoglycemia OR glucagon ??? diphenhydrAMINE ??? glucose (Diabetic Use) gel ??? HYDROcodone-acetaminophen ??? hydrOXYzine HCl ??? methocarbamol ??? morphine Assessment and Plan Low back pain with radiation to the left lower extremity History of spinal stimulator -??continue pain regimen with home dose [place] 10 q.6 p.r.n. for severe pain, p.r.n. IV morphine q.4hours if pain is not controlled with oral agents Scheduled tylenol -??appreciate orthospine input - PT/OT ?? Type 2 diabetes mellitus-??Lantus 45 units plus LDSS, hold 15 U tid with meals novolog LUL on CPAP-??continue CPAP Hypertension??-??continue home hydrochlorothiazide History of breast cancer-??continue exemestane History of??PE -??continue home Xarelto Chronic urinary incontinence??-??continue home medications DVT ppx - on xarelto Disposition: Pending clinical course Jamie Lake MD Date of Service: 05/17/23 Patient was seen by me on 05/17 at around 1020 RNATIONAL RELATIONS PROFESSOR * Melly Banks, ZAMZAM-AUTOMATIC VULCANIZING OPERATOR - 05/17/2023 9:31 AM CST Neurosurgery Progress Note Karly Marques 05/17/23 Hospital Day: 2 Subjective: NAEON. Unable to obtain MRI due to high impendence on spinal cord stimulator. Reports left hip/leg pain unchanged. Recent/Significant Events: 05/16: Patient is a 67y/o female, w/ PMH of refractory axial low back pain s/p T8-9 laminectomy for placement of spinal stimulator (with Dr. Gregg in 02/13),??DVT/PE (on Xarelto), GERD, DM and LUL, who presented to [facility] ED on 05/16/23 w/ c/o acute on chronic back pain for 3 days.??Pain radiates from left low back to left hip and down entire left leg. Associated with weakness and heaviness Stephanie starting 4 days ago. Patient reports urinary incontinence secondary to inability to walk from pain. Denies any injury or trauma.??Patient was admitted for pain control. Per chart review, last month, patient had similar presentation and symptoms improved with pain control without any further inte rvention. Objective: T: 97.9 ??F (36.6 ??C) [Temp Min: 97.9 ??F (36.6 ??C) Max: 98.8 ??F (37.1 ??C)] BP: 126/75[BP Min: 112/64 Max: 154/91] MAP: 92[MAP (mmHg) Min: 77 Max: 112] HR: 79[Pulse Min: 79 Max: 85] RR: 18[Resp Min: 16 Max: 18] Sat: 99 %[SpO2 Min: 93 % Max: 99 %] Input/Output: No intake/output data recorded. PAIGE/Other Drain: n/a Labs: Recent Labs Component Name 05/15/23 2201 WBC 10.8* HGB 12.8 HCT 40.4 PLTCOUNT 275 Recent Labs Component Name 05/16/23 0235 04/17/239 03/24/23 2338 NA - - 135* POTASSIUM 4.1 - 4.2 CO2 25 - 26 BUN 13 - 17 CREATININE 0.67 - 0.99* CALCIUM 9.0 - 9.4 GLUCOSE 174* - 352* - = values in this interval not displayed. Recent Labs Component Name 02/21/23 1830 02/16/23 1220 02/06/23 1330 INR 1.0 - 2.5* PTT - - 35.4 - = values in this interval not displayed. Imaging: no new imaging Diet: DIET NPO Except: NO EXCEPTIONS Fluids: Per primary team MEDICATIONS FOR CURRENT ENCOUNTER: ?? SCHEDULED MEDICATIONS: ?? 0.9% NaCl injection 3 mL, Intracatheter, q8h ?? acetaminophen (Tylenol) tablet 650 mg, Oral, TID ?? amitriptyline (Elavil) tablet 25 mg, Oral, QDAY AT 1000 ?? hydroCHLOROthiazide (Hydrodiuril) tablet 25 mg, Oral, QDAY ?? insulin aspart (NovoLOG) pen 0-6 Units, Subcutaneous, TID WC ?? insulin aspart (NovoLOG) pen 15 Units, Subcutaneous, TID WC ?? insulin glargine (Lantus) pen 45 Units, Subcutaneous, QAM ?? rivaroxaban (Xarelto) tablet 20 mg, Oral, QDAY WITH DINNER ?? tolterodine ER 24hr (Detrol LA) capsule 2 mg, Oral, QDAY ?? CONTINUOUS MEDICATIONS: ?? PRN MEDICATIONS: ?? Or ?? Or ?? 0.9% NaCl injection 1-10 mL, Intracatheter, PRN ?? dextrose 10 % IV bolus, Intravenous, PRN ?? dextrose 10 % IV bolus, Intravenous, PRN ?? diphenhydrAMINE (Benadryl) capsule 25 mg, Oral, q6h PRN ?? glucagon (Glucagen) injection 1 mg, Subcutaneous, PRN ?? glucose (Diabetic Use) oral gel, Oral, PRN ?? HYDROcodone-acetaminophen ([place]) 10-325 MG tablet 1 tablet, Oral, q6h PRN ?? hydrOXYzine HCl (Atarax) tablet 25 mg, Oral, TID PRN ?? methocarbamol (Robaxin) tablet 750 mg, Oral, q6h PRN ?? morphine injection 4 mg, Intravenous, q3h PRN Neuro: Mental status: Alert, attentive, and oriented. Speech is clear and fluent. Cranial nerves: Grossly intact Motor: Muscle bulk and tone are normal. ?? Hip Flexor Quad Hamstring Tib Ant Gastroc EHL Right 5 5 5 5 5 5 Left 4+ 5 5 5 5 5 Pain related weakness Reflexes: ?? Patellar Right 1+ Left 1+ Sensory: light touch intact to BLE Coordination: There are no abnormal or extraneous movements. Gait/Stance: deferred Assessment: 67 year old??female??with chronic axial low back pain s/p T8-9 laminectomy for placement of spinal stimulator (with Dr. Gregg in 02/13) who presented to [facility] ED on 05/15/23 w/ c/o acute on chronic low back pain??which radiates down her left leg??for 3 days. Associated with weakness and heaviness to left leg as well. Neurologically, she has minor weakness to her left hip flexor which may be related to pain. Her incisions are completely healed without evidence of infection. The??stimulator rep ([employer]) has been contacted to make adjustments to her device today, which is MRI compatible. Given new onset of left lower extremities weakness, will obtain MRI t/lspine to rule out any new pathology. Unfortunately, MRI unable to be obtained secondary to high impedence on the spinal cord stimulator device. Given this, would recommend pain control and outpatient follow up. Plan: - As MRI unable to be obtained, recommend outpatient follow up with EMG prior - Recommend Oxy q4-6h prn + scheduled Robaxin + scheduled Tylenol + Lidoderm patches - Continue to monitor neuro exam - Activity:??As tolerated - Overall care per primary team?? Discussed with attending, Dr. Marysol Banks, ZAMZAM-AUTOMATIC VULCANIZING OPERATOR 9:31 AM 05/17/23 Ascom Pager RNATIONAL RELATIONS PROFESSOR * Gil Pacheco RD/SARA - 05/17/2023 9:03 AM CST CLINICAL NUTRITION BMI NOTE Height: 154.9 cm (5' 1 ) Weight: 120.1 kg (264 lb 12.8 oz) Body mass index is 50.03 kg/m??. BMI Range: Morbidly Obese Class 3 Currently, patient is receiving a Current diet order: NPO. Patient would benefit from outpatient nutrition counseling & follow up at discharge. To see an outpatient dietitian a provider will need to enter an order for MNT (Medical Nutrition Therapy) (Ambulatory [id number] in Epic). MNT is a covered Medicare benefit for diabetes and renal disease. Other insurance coverage varies, patients should check with their insurance providers to verify coverage. Gil De Los Santos MS, RD/LD Ascom [phone] RNATIONAL RELATIONS PROFESSOR * Jayson Nguyen RN - 05/17/2023 12:52 AM CST Problem: Pain/Discomfort Goal: Patient exhibits reduced pain/discomfort as evidenced by pain scores Outcome: Progressing Goal: Patient uses pharmacological and non-pharmacological pain management strategies. Outcome: Progressing Goal: Patient verbalizes acceptable level of pain relief and ability to engage in desired activity. Outcome: Progressing RNATIONAL RELATIONS PROFESSOR * Loree Reina Graduate Nurse - 05/16/2023 6:59 PM CST Problem: Pain/Discomfort Goal: Patient exhibits [...] found in the flowsheet documentation) Outcome: Progressing RNATIONAL RELATIONS PROFESSOR * Loree Reina Graduate Nurse - 05/16/2023 6:31 PM CST Images from the original note were not included. Patient transported to [facility]. Admission assessment completed by this RN. Two nurse skin assessment completed by this RN and NURIS Dias. Patient has no open areas but has an abrasion on the right buttock. Photo attached. * Zoey Watters RN - 05/16/2023 3:30 PM CST Care Coordination Initial Assessment Anticipated Discharge Date: 05/18/23 Transportation at Discharge: Family Anticipated level of care at discharge: Home Anticipated level of care provider: None Prior to admission level of care: Home Prior to admit provider: None Patient Goals: return home Plans: No discharge needs identified at this time. Consult Case Management if discharge planning needs arise. Comments: Chart reviewed. Admitted d/t low back pain with radiation to the LLE, hx spinal stimulator. Pain control. PT/OT ordered, evals pending. Per documentation, patient lives at home with daughter. Independent with ADLs, ambulatory using cane or walker. Daughter able to assist, if needed. Plan to return home when stable. CM will continue to follow for discharge planning. Lives with: Daughter Physical Limitations: None Requires Assistance With: Mobility;Housekeeping;Shopping;Meal Preparation;Hygiene Preferred Pharmacy: [facility] #[id number] - [address] [place] [address] [address] [place] [address] READMISSION RISK SCORE is N/A at 3:31 PM 05/16/2023. Family Support (name and phone): Extended Emergency Contact Information Primary Emergency Contact: Jimmie Marques Address: [address] [place] [address] [place] [address] [place] Relation: Spouse Secondary Emergency Contact: Yunior Velez Mobile Relation: Daughter Patient or loan servicing representative requests care coordination reach out to family or caregiver listed above regarding discharge planning and at time of discharge? No Patient/Family provided with list of resources? Unknown Preferred Provider / High Quality Network List given?: Unknown Reason for provider choice: Unknown Equipment at Home: CPAP;Cane-Straight;Chair-Shower;Commode-Bedside;Hand Held Shower;Grab Bars;BloodPressure Cuff;Blood Glucose Monitor;Walker-2 Wheeled List DME pt. requires but does not have.: None [employer] Referral: No Will continue to follow. For any questions or needs please contact: Credit Risk Manager Name/Phone number: Zoey Watters RN [phone] RNATIONAL RELATIONS PROFESSOR * Jamie Lake MD - 05/16/2023 10:10 AM CST Non billable rounding Please refer to H&P for details Communicated with Melly MRI ordered Lives with daughter Able to ambulate without assistance at baseline Patient was seen by me on 05/16 at around 1355 RNATIONAL RELATIONS PROFESSOR documented in this encounter H&P Notes * Mary Velasquez MD - 05/16/2023 12:01 AM CST [facility] Hospitalist History & Physical [facility] Please be advised that voice recognition software has been used on this chart and inadvertent errors may occur. These may not represent a true interpretation of the dictation given. Name: Karly Marques : 1955 Age: [age] year old Admit Date: 05/15/2023 Date of Service: 05/16/2023 PCP: Justen Gale MD HPI: Karly Marques is a 67 year old female with a pmhx significant for type 2 diabetes mellitus, breast cancer, chronic back pain status post spinal stimulator placement complicated by infection of the battery requiring replacement, LUL, depression, peripheral neuropathy,PE on AC. Patient presented to the hospital with increasing lower back pain that started 4 days ago. Reports pain in the back radiating to left leg , unable to ambulate On admission patient was afebrile, hemodynamically stable. Admission labs remarkable for e CC countof 10.8, hyperglycemia with glucose of 197 non-anion gap metabolic acidosis bicarb of 21 ED MD consulted Neurosurgery, who did not recommend any imaging. But wanted patient to be admitted for pain control. Patient was admitted to under IM service for further management. ROS, PMHx, PSHx, Social Hx, and Family Hx reviewed (Not in a hospital admission) Allergies Allergen Reactions ??? Latex Rash ??? [...] Reslizumab Unknown ??? Skin Adhesives Skin Reactions PHYSICAL EXAM Vitals: 05/15/23 2245 05/15/23 2332 05/15/23 2338 05/16/23 0001 BP: (!) 214/111 Pulse: Resp: Temp: SpO2: 98% 99% 96% Weight: Height: General appearance: in no acute distress, Lungs: clear to auscultation Heart: regular rhythm, no murmur Abdomen: soft and non tender Extremities: moves all extremities, +edema , able to move her legs , painful to move left leg , normal sensations DATA Recent Labs Component Name 05/15/23 2201 04/19/23 0252 04/17/23 2059 03/24/23 2338 03/22/23 1027 03/20/23 0355 02/17/23 1838 02/06/23 1331 WBC 10.8* 13.5* 10.0 10.3 9.1 10.2 - 8.9 RBC 4.38 4.01 4.27 4.66 4.51 3.98 - 5.05 HGB 12.8 11.5* 12.3 13.6 13.2 11.3* - 14.6 HCT 40.4 36.7 39.2 42.4 41.5 36.3 - 45.5 MCV 92.2 91.5 91.8 91.0 92.0 91.2 - 90.1 MCHC 31.7 31.3* 31.4* 32.1 31.8 31.1 - 32.1 RDW - - - 13.2 13.4 13.3 - - RDWCV 13.6 13.4 13.6 - - - - 13.8 PLTCOUNT 275 300 288 279 290 243 - 264 NEUTPCT 60.3 - 56.0 63.9 56.2 - - 63.1 LYMPHPCT 28.7 - 31.1 - - - - 27.2 BASOPHILPCT - - - - - - - 0.4 GRANSIMMPCT - - - - - - - 0.2 LYMPHABS 3.11 - 3.10 - - - - 2.42 BASOABS 0.04 - 0.04 - - - - 0.04 NRBCAUTO - - - - - - - 0 - = values in this interval not displayed. Recent Labs Component Name 05/15/23 22004/19/232 04/17/232058 SODIUM 139 136 139 POTASSIUM 4.7 4.2 4.5 CHLORIDE 107 100 103 CO2 21* 26 24 BUN 15 25 18 CREATININE 0.76 0.86 1.07 GLUCOSE 197* 231* 268* CALCIUM 9.6 9.2 9.6 ALBUMIN 3.3* 3.0* 3.3* ALKPHOS 74 63 72 ALT 22 13 16 AST 24 12 18 TBIL 0.4 0.6 0.4 TPROT 8.4* 7.5 8.4* EGFR 86* 74* 57* Recent Labs Component Name 04/19/23 1513 COLORUA Straw CLARITYUA Clear SPECGRAVUA 1.012 PHUA 5.0 PROTEINUA Negative BLOODUA 1+* LEUKOCYTEUA Trace* NITRITEUA Negative GLUCOSEUA 1+* KETONEUA Negative BILIRUBINUA Negative UROBILINUA Negative Recent Labs Component Name 11/11/218 BNP <10 Recent Labs Component Name 11/11/21 2238 11/05/21 1350 TROPONINI <0.010 <0.010 No results for input(s): LACTICACID in the last 30449 hours. Recent Labs Component Name 02/21/23 1830 02/17/23 1838 02/16/23 1220 02/06/23 1330 02/06/23 1330 11/13/21 0107 11/12/21 1823 INR 1.0 1.0 1.2* - 2.5* 1.2 - PT 13.2 12.7 15.0* - 25.7* 15.2* - PTT - - - - 35.4 77.2* 70.9* - = values in this interval not displayed. ASSESSMENT/PLAN Low back pain with radiation to the left lower extremity History of spinal stimulator - continue pain regimen with home dose [place] 10 q.6 p.r.n. for severe pain, p.r.n. IV morphine q.4 hours if pain is not controlled with oral agents - neurosurgery consulted,from ED to see patient in am - - PTOT ordered Type 2 diabetes mellitus- Lantus 45 units, NovoLog 15 units t.i.d. plus LDSS LUL on CPAP- continue CPAP Hypertension - continue home hydrochlorothiazide History of breast cancer- continue exemestane History of PE - continue home Xarelto Chronic urinary incontinence - continue home medications Patient Diagnoses Present at the Time of Admission No other risk factors present DVT Prophylaxis - nandini Velasquez MD 05/16/2023 12:12 AM RNATIONAL RELATIONS PROFESSOR documented in this encounter Consult Notes * Melly Banks APRN-AUTOMATIC VULCANIZING OPERATOR - 05/16/2023 9:42 AM CSTAssociated Order(s): IP CONSULT TO ORTHOPEDIC SURGERY Neurosurgery Spine Consult Note Name: Karly Marques : 1955 Date of Admission:05/15/2023 Date of Consult:05/16/2023 9:42 AM Time Seen: 1330 Chief Complaint (CC): acute on chronic back pain HISTORY OF PRESENT ILLNESS (HPI): Patient is a 67y/o female, w/ PMH of refractory axial low back pain s/p T8-9 laminectomy for placement of spinal stimulator (with Dr. Gregg in 02/13), DVT/PE (on Xarelto), GERD, DM and LUL, who presented to [facility] ED on 05/16/23 w/ c/o acute on chronic back pain for 3 days. Pain radiates from left low back to left hip and down entire left leg. Associated with weakness and heaviness to LLE starting 4 days ago. Patient reports urinary incontinence secondary to inability to walk from pain. Denies any injury or trauma. Patient was admitted for pain control. Per chart review, last month, patient had similar presentation and symptoms improved with pain control without any further intervention. Past Medical History: Diagnosis Date ??? Breast cancer ([facility]) ??? Chest pain ??? DVT (deep venous thrombosis) ([facility]) ??? GERD (gastroesophageal reflux disease) ??? LUL (obstructive sleep apnea) w cpap ??? Other pulmonary embolism without acute cor pulmonale ([facility]) ??? rls ??? Type 2 diabetes mellitus without complications ([facility]) Past Surgical History: Procedure Laterality [...] ??? Skin Adhesives Skin Reactions Current Medications acetaminophen (Tylenol) 500 MG tablet Take 2 (two) tablets by mouth every 12 hours Maximum allowable Acetaminophen amount = 4 Grams (4000 mg) / 24 hours. amitriptyline (ELAVIL) 25 MG tablet at bedtime exemestane (AROMASIN) 25 MG tablet Take 1 (one) tablet by mouth DAILY HumaLOG KwikPen 100 UNIT/ML pen 22 (twenty two) Units 3 times daily before meals hydroCHLOROthiazide (Microzide) 12.5 MG capsule Take 1 (one) capsule by mouth once daily HYDROcodone-acetaminophen ([place]) 10-325 MG tablet Take 1 (one) tablet [...] 50 UNITS UNDER THE SKIN EVERY MORNING lidocaine (Lidoderm) 5 % patch Apply 1 [...] 6 hours as needed for Muscle Spasms methylPREDNISolone (Medrol) 4 MG tablet Take 1 (one) tablet by mouth every 6 hours 4 mg q.6 hours for 1 days, taper to Q 8 hours for 2 days, and q.12 hours for 2 days ONETOUCH ULTRA test strip 4 times [...] ??? diphenhydrAMINE (Benadryl) capsule 25 mg ??? glucose (Diabetic Use) oral gel ??? hydroCHLOROthiazide (Hydrodiuril) tablet 25 mg ??? HYDROcodone-acetaminophen ([place]) 10-325 MG tablet 1 tablet ??? insulin aspart (NovoLOG) pen 0-6 Units ??? insulin aspart (NovoLOG) pen 15 Units ??? insulin glargine (Lantus) pen 45 Units ??? morphine injection 4 mg ??? rivaroxaban (Xarelto) tablet 20 mg ??? tolterodine ER 24hr (Detrol LA) capsule 2 mg Current Outpatient Medications Medication ??? acetaminophen (Tylenol) 500 MG tablet ??? amitriptyline (ELAVIL) 25 MG tablet ??? exemestane (AROMASIN) 25 MG tablet ??? HumaLOG KwikPen 100 UNIT/ML pen ??? hydroCHLOROthiazide (Microzide) 12.5 MG capsule ??? HYDROcodone-acetaminophen ([place]) 10-325 MG tablet ??? hydrOXYzine HCl (Atarax) 25 MG tablet ??? insulin pen needle (B-D ULTRAFINE III SHORT PEN) 31G X 8 MM needle ??? Lancets (ONETOUCH DELICA PLUS 33G EXTRA FINE LANCET) ??? Lantus SoloStar pen ??? lidocaine (Lidoderm) 5 % patch ??? methenamine hippurate (Hiprex) 1 GM tablet ??? methocarbamol (Robaxin) 500 MG tablet ??? methylPREDNISolone (Medrol) 4 MG tablet ??? ONETOUCH ULTRA test [...] see HPI Behavioral/Psych: Negative PHYSICAL EXAM BP 112/66 Pulse 68 Temp 98 ??F (36.7 ??C) (Oral) Resp 12 Ht 1.549 m (5' 1 ) Wt 124.7 kg (275 lb) SpO2 91% General: NAD Cardiovascular: warm, well profused Respiratory: non-labored breathing Abdominal: Soft, non tender, non distended Integument: thoracic and left lumbar wound completely healed Vascular: capillary refill <3 seconds Neuro: Mental status: Alert, attentive, and oriented. Speech is clear and fluent. Cranial nerves: Grossly intact Motor: Muscle bulk and tone are normal. Hip Flexor Quad Hamstring Tib Ant Gastroc EHL Right 5 5 5 5 5 5 Left 4- 5 5 5 5 5 Reflexes: Patellar Right 1+ Left 1+ Sensory: light touch intact to BLE Coordination: There are no abnormal or extraneous movements. Gait/Stance: deferred LABORATORY Recent Labs Component Name 05/15/23 2201 WBC 10.8* HGB 12.8 HCT 40.4 PLTCOUNT 275 Recent Labs Component Name 05/16/23 0235 04/17/23 2059 03/24/23 2338 NA - - 135* POTASSIUM 4.1 - 4.2 CHLORIDE 107 - - CO2 25 - 26 BUN 13 - 17 CREATININE 0.67 - 0.99* GLUCOSE 174* - 352* - = values in this interval not displayed. Recent Labs Component Name 02/21/23 1830 INR 1.0 RADIOLOGY No new imaging Assessment: 67 year old female with chronic axial low back pain s/p T8-9 laminectomy for placement of spinal stimulator (with Dr. Gregg in 02/13) who presented to [facility] ED on 05/15/23 w/ c/o acute on chronic low back pain which radiates down her left leg for 3 days. Associated with weakness and heaviness to left leg as well. Neurologically, she has minor weakness to her left hip flexor which may be related to pain. Her incisions are completely healed without evidence of infection. The stimulator rep ([employer]) has been contacted to make adjustments to her device today, which is MRI compatible. Given new onset of left lower extremities weakness, will obtain MRI t/lspine to rule out any new pathology Plan: - MRI thoracic/lumbar spine to rule out pathology given new onset left leg weakness (spinal cord stimulator is MRI conditional and requires patient to make simple adjustment on device) - Recommend Oxy q4-6h prn + scheduled Robaxin + scheduled Tylenol + Lidoderm patches - Continue to monitor neuro exam - Activity: As tolerated - Overall care per primary team Further recommendations pending results of MRI Case to be discussed with attending, Dr. Marysol Banks, CTRS-AUTOMATIC VULCANIZING OPERATOR 05/16/2023 9:42 AM Ascom Pager RNATIONAL RELATIONS PROFESSOR documented in this encounter ED Notes * Isa Morales RN - 05/16/2023 4:29 AM CST Pt stated she has trouble sleeping due to her sleep apnea and sleeping with out her CPAP. 2L of O2 applied for comfort for pt. Oxygen saturation 97%. RNATIONAL RELATIONS PROFESSOR * Giovanni Oliveros RN - 05/15/2023 10:44 PM CST Pt states pain down to 5/10. Pt able to move L leg more than before pain control, but L leg continues to be weaker as compared to R leg. Dr. Hartley notified via telephone. RNATIONAL RELATIONS PROFESSOR * Giovanni Oliveros RN - 05/15/2023 10:20 PM CST Pt placed on purewick for collection of urine. RNATIONAL RELATIONS PROFESSOR * Emily Felix MD - 05/15/2023 9:48 PM CST ED Events Date/Time Event User Comments 05/15/23 9996 First Provider Evaluation [facility]LLEN LOGAN -- Karly Marques [id number] [facility] EMERGENCY DEPARTMENT History Chief Complaint Patient presents with ??? Low Back Pain Chronic low back pain with pain down left leg worse for 4 days/pt had back stimulator placed 10 weeks ago/takes norco for pain with some initial relief Patient is a 67-year-old female past medical history including chronic lower back pain for which she sees spine surgery. She recently had stimulator placed. Reports over the past 3-4 days she has hadsignificant pain with associated weakness in her left leg. She is unsure if this is related to thepain or out right weakness. Also reports that she has been urinating on herself due to inability towalk to the bathroom due to pain. Patient has had admissions in the past for pain control, most recently 3 weeks ago. On chart review it appears patient had similar presentation and symptoms improvedwith pain control and she was discharged with outpatient follow-up. She denies any numbness or tingling. Denies saddle anesthesia. Past Medical History: Diagnosis Date ??? Breast cancer ([facility]) ??? Chest pain ??? DVT (deep venous thrombosis) ([facility]) ??? GERD (gastroesophageal reflux disease) ??? LUL (obstructive sleep apnea) w cpap ??? Other pulmonary embolism without acute cor pulmonale ([facility]) ??? rls ??? Type 2 diabetes mellitus without complications ([facility]) Past Surgical History: Procedure Laterality [...] Years since quittin.4 ??? Smokeless tobacco: Never Vaping Use ??? [...] No Stress: No Stress Concern Present (02/22/2023) [employer] - Occupational Stress Questionnaire ??? Feeling of Stress : Not at all Housing Stability: Low Risk (02/22/2023) Housing Stability Vital Sign ??? Unable to Pay for Housing in the Last Year: No ??? Number of Places Lived in the Last Year: 1 ??? Unstable Housing in the Last Year: No Review of Systems Review of Systems Constitutional: Negative for chills, diaphoresis and fever. Respiratory: Negative for cough, shortness of breath and wheezing. Cardiovascular: Negative for chest pain. Gastrointestinal: Negative for abdominal pain, nausea and vomiting. Musculoskeletal: Positive for back pain. Neurological: Negative for dizziness, focal weakness, loss of consciousness and weakness. All other systems reviewed and are negative. Physical Exam BP (!) 211/122 Pulse 79 Temp 98 ??F (36.7 ??C) (Oral) Resp 18 Ht 1.549 m (5' 1 ) Wt 124.7kg (275 lb) SpO2 98% BMI 51.96 kg/m?? Physical Exam Vitals and nursing note reviewed. Constitutional: Appearance: Normal appearance. HENT: Head: Normocephalic and atraumatic. Cardiovascular: Rate and Rhythm: Normal rate. Pulmonary: Effort: Pulmonary effort is normal. Breath sounds: Normal breath sounds. Abdominal: General: Bowel sounds are normal. There is no distension. Palpations: Abdomen is soft. Tenderness: There is no abdominal tenderness. Musculoskeletal: General: Normal range of motion. Cervical back: Normal range of motion and neck supple. Comments: RLE with 4+/5 strength, LLE with 4/5 strength Skin: General: Skin is warm and dry. Neurological: General: No focal deficit present. Mental Status: She is alert and oriented to person, place, and time. Medications Current Outpatient Medications Medication Sig Dispense Refill ??? acetaminophen (Tylenol) 500 MG tablet Take 2 (two) tablets by mouth every 12 hours Maximum allowable Acetaminophen amount = 4 Grams (4000 mg) / 24 hours. 60 tablet 0 ??? amitriptyline (ELAVIL) 25 MG tablet at bedtime ??? exemestane (AROMASIN) 25 MG tablet Take 1 (one) tablet by mouth DAILY ??? HumaLOG KwikPen 100 UNIT/ML pen 22 (twenty two) Units 3 times daily before meals ??? hydroCHLOROthiazide (Microzide) 12.5 MG capsule Take 1 (one) capsule by mouth once daily ??? HYDROcodone-acetaminophen ([place]) 10-325 MG tablet Take 1 (one) tablet [...] for Muscle Spasms 60 tablet 0 ??? methylPREDNISolone (Medrol) 4 MG tablet Take 1 (one) tablet by mouth every 6 hours 4 mg q.6 hours for 1 days, taper to Q 8 hours for 2 days, and q.12 hours for 2 days 14 tablet 0 ??? ONETOUCH ULTRA test strip 4 [...] Procedures Procedures Lab/SPO2 Interpretation Hospital Encounter on 05/15/23 COMPREHENSIVE METABOLIC PANEL Result Value Ref Range Glucose 197 (H) 70 - 105 mg/dL Sodium 139 136 - 145 mmol/L Potassium 4.7 3.5 - 5.1 mmol/L Chloride 107 98 - 107 mmol/L CO2 21 (L) 22 - 29 mmol/L Calcium 9.6 8.4 - 10.4 mg/dL Anion Gap 11 6 - 16 mmol/L BUN 15 7 - 26 mg/dL Creatinine 0.76 0.57 - 1.11 mg/dL Alkaline Phosphatase 74 40 - 150 U/L ALT 22 0 - 55 U/L AST 24 5 - 34 U/L Protein Total 8.4 (H) 6.4 - 8.3 gm/dL Albumin 3.3 (L) 3.4 - 5.0 gm/dL Bilirubin Total 0.4 0.2 - 1.2 mg/dL eGFR by CKD-EPI 86 (L) >=90 mL/min/1.73 m2 CBC W AUTO DIFFERENTIAL Result Value Ref Range WBC 10.8 (H) 4.0 - 10.7 x10E9/L RBC Count 4.38 3.90 - 5.20 x10E12/L Hemoglobin 12.8 11.9 - 15.8 g/dL Hematocrit 40.4 34.8 - 46.1 % MCV 92.2 80.0 - 98.0 fL MCH 29.2 26.7 - 33.6 pg MCHC 31.7 31.7 - 36.3 g/dL RDW-CV 13.6 11.3 - 14.8 % Platelet Count 275 150 - 420 x10E9/L MPV 10.2 7.8 - 11.4 fL Neutrophil % 60.3 41.0 - 74.0 % Lymphocyte % 28.7 17.0 - 47.0 % Monocyte % 7.7 3.0 - 11.0 % Eosinophil % 2.6 0.0 - 7.0 % Basophil % 0.4 0.0 - 1.6 % Immature Granulocytes % 0.3 0.0 - 1.0 % Neutrophil Absolute 6.53 1.60 - 7.50 x10E9/L Lymphocyte Absolute 3.11 1.00 - 4.40 x10E9/L Monocyte Absolute 0.83 0.15 - 1.00 x10E9/L Eosinophil Absolute 0.28 0.00 - 0.60 x10E9/L Basophil Absolute 0.04 0.00 - 0.13 x10E9/L No orders to display Progress Notes ED Course ED Course as of 05/15/232333May 15, 20232151 I have discussed with??Dr. Oconnor with SPINE all pertinent aspects of the case including HPI details, physical exam findings, testing completed, medications given, the patients current condition, and my clinical impression. They recommend pain control and admission. May not have stimulator that is compatible with MRI. Does not recommend CT [CO] 2331 Discussed patient's stimulator and she reports that it can be placed in MRI mode but she has not currently have the directions in order to do so. Will plan for admission for pain control and if symptoms continue spine is consulted and can help with stimulator setting if warranted. Discussed with Hospitalist at time of admission. [CO] ED Course User Index [CO] Emily Felix MD Clinical Impressions as of 05/15/232333 Chronic left-sided low back pain with left-sided sciatica MDM Medical Decision Making and ED Course Medical records reviewed, discussion with pt and family The results of all pertinent lab and imaging studies performed have been reviewed by myself History obtained from: patient Pt presents to ED with flare of patient's chronic low back pain. Patient's pain improved to 5/10 with morphine administration. Discussed with Spine who did not recommend imaging at this time. Plan for admission for further pain control and spine to see patient in the morning. Consults: spine, Hospitalist Condition at disposition: Stable Disposition: admit Amount and/or Complexity of Data Reviewed --Triage notes and available nursing notes reviewed --Clinical lab tests: ordered and reviewed --Tests in the radiology section of CPT??: ordered and reviewed --Tests in the medicine section of CPT??: ordered --Independent visualization of images, tracings, or specimens (including EKGs): yes --Discuss the patient with other providers: yes Note: This H+P was created with the aid of dictation software, thus there may be some word substitutions or errors Orders Placed This Encounter ??? COMPREHENSIVE METABOLIC PANEL ??? CBC W AUTO DIFFERENTIAL ??? IP CONSULT TO ORTHOPEDIC SURGERY ??? morphine injection 4 mg ??? ondansetron (Zofran) injection 4 mg RNATIONAL RELATIONS PROFESSOR * Isa Morales RN - 05/15/2023 8:54 PM CST Pt presents to the ED with left lower back pain. Rates pain 10/10 that is stabbing and aching. Pt states she had a back pain stimulator placed at the end of January. Pt states the pain started yesterday. RNATIONAL RELATIONS PROFESSOR documented in this encounter Miscellaneous Notes * Coding Query - Jamie Lake MD - 05/17/2023 8:51 AM CST DOCUMENTATION CLARIFICATION REQUEST Use the F2 function pinzon to complete the query. Click ???Sign?? to file the note. TO: Dr. Lake FROM: Mary Toribio RN, CDS Patient Name: Karly Marques Please review the clinical information below and clarify the diagnosis related to body mass index (BMI) of 51.96 as documented on 05/15/2023, ED Provider note. Choices may include but are not limited to: ??? Morbid obesity ??? Obesity ??? Other, please specify ??? Unable to determine The medical record reflects the following: o Risk Factors: Excess calorie intake, decreased mobility o Clinical Findings: BMI: 51.96. o Treatment: diabetic diet, monitoring of PO intake/weight/GI function PROVIDER RESPONSE (Use F2 to respond) ??? Morbid obesity Please provide your clinical opinion and findings to support the diagnosis in the progress notes & carry it through into your discharge summary. THIS DOCUMENT IS MAINTAINED A PERMANENT PART OF THE MEDICAL RECORD. RNATIONAL RELATIONS PROFESSOR documented in this encounter Plan of Treatment Scheduled Orders Name Type Priority Associated Diagnoses Order Schedule MRI LUMBAR SPINE WO CONTRAST Imaging STAT Chronic left-sided low back pain with left-sided sciatica For radiant use only for 1 Occurrences starting 05/16/2023 until 05/16/2023 MRI THORACIC SPINE WO CONTRAST Imaging STAT Chronic left-sided low back pain with left-sided sciatica For radiant use only for 1 Occurrences starting 05/16/2023 until 05/16/2023 REASSESSMENT PARAMETERS Respiratory Care Routine ONCE for 1 Occurrences starting 05/16/2023 until 05/16/2023 PT EVAL AND TREAT PT Routine ONCE fo r 1 Occurrences starting 05/18/2023 until 05/18/2023 documented as of this encounter Procedures Procedure Name Priority Date/Time Associated Diagnosis Comments GLUCOSE - POINT OF CARE Routine 05/20/2023 11:32 AM INTERNATIONAL RELATIONS PROFESSOR GLUCOSE - POINT OF CARE Routine 05/20/2023 8:16 AM INTERNATIONAL RELATIONS PROFESSOR GLUCOSE - POINT OF CARE Routine 05/19/2023 4:44 PM INTERNATIONAL RELATIONS PROFESSOR GLUCOSE - POINT OF CARE Routine 05/19/2023 11:29 AM INTERNATIONAL RELATIONS PROFESSOR GLUCOSE - POINT OF CARE Routine 05/19/2023 7:48 AM INTERNATIONAL RELATIONS PROFESSOR GLUCOSE - POINT OF CARE Routine 05/18/2023 8:21 PM INTERNATIONAL RELATIONS PROFESSOR GLUCOSE - POINT OF CARE Routine 05/18/2023 4:36 PM INTERNATIONAL RELATIONS PROFESSOR GLUCOSE - POINT OF CARE Routine 05/18/2023 11:24 AM INTERNATIONAL RELATIONS PROFESSOR GLUCOSE - POINT OF CARE Routine 05/18/2023 7:36 AM INTERNATIONAL RELATIONS PROFESSOR GLUCOSE - POINT OF CARE Routine 05/17/2023 8:38 PM INTERNATIONAL RELATIONS PROFESSOR GLUCOSE - POINT OF CARE Routine 05/17/2023 4:51 PM INTERNATIONAL RELATIONS PROFESSOR GLUCOSE - POINT OF CARE Routine 05/17/2023 11:34 AM INTERNATIONAL RELATIONS PROFESSOR GLUCOSE - POINT OF CARE Routine 05/17/2023 8:09 AM INTERNATIONAL RELATIONS PROFESSOR GLUCOSE - POINT OF CARE Routine 05/16/2023 6:44 PM INTERNATIONAL RELATIONS PROFESSOR GLUCOSE - POINT OF CARE Routine 05/16/2023 4:56 PM INTERNATIONAL RELATIONS PROFESSOR GLUCOSE - POINT OF CARE Routine 05/16/2023 9:45 AM INTERNATIONAL RELATIONS PROFESSOR BASIC METABOLIC PANEL (CALCIUM TOTAL) STAT 05/16/2023 2:35 AM INTERNATIONAL RELATIONS PROFESSOR Chronic left-sided low back pain with left-sided sciatica CBC W AUTO DIFFERENTIAL STAT 05/15/2023 10:01 PM INTERNATIONAL RELATIONS PROFESSOR COMPREHENSIVE METABOLIC PANEL STAT 05/15/2023 10:01 PM INTERNATIONAL RELATIONS PROFESSOR documented in this encounter Results * (ABNORMAL) GLUCOSE - POINT OF CARE (05/20/2023 11:32 AM INTERNATIONAL RELATIONS PROFESSOR) Glucose WB/POC 247(H) 70 - 106 mg/dL 05/20/2023 11:41 AM INTERNATIONAL RELATIONS PROFESSOR [facility] Specimen Type Cap Fingerstick 2023 11:41 AM INTERNATIONAL RELATIONS PROFESSOR [facility] Blood BLOOD SPECIMEN / Unknown 05/20/2023 11:32 AM INTERNATIONAL RELATIONS PROFESSOR 05/20/2023 11:41 AM INTERNATIONAL RELATIONS PROFESSOR Anne Marie Poole MD LAB - POINT OF CARE ORDERABLES Performing Organization Address [facility] Co de Phone Number [facility] [address] [place] [phone] * (ABNORMAL) GLUCOSE - POINT OF CARE (05/20/2023 8:16 AM INTERNATIONAL RELATIONS PROFESSOR) Glucose WB/POC 188(H) 70 - 106 mg/dL 05/20/2023 8:26 AM INTERNATIONAL RELATIONS PROFESSOR [facility] Specimen Type Cap Fingerstick 2023 8:26 AM INTERNATIONAL RELATIONS PROFESSOR [facility] Blood BLOOD SPECIMEN / Unknown 05/20/2023 8:16 AM INTERNATIONAL RELATIONS PROFESSOR 05/20/2023 8:26 AM INTERNATIONAL RELATIONS PROFESSOR Anne Marie Poole MD LAB - POINT OF CARE ORDERABLES Performing Organization Address [facility] de Phone Number [facility] [address] [place] [phone] * (ABNORMAL) GLUCOSE - POINT OF CARE (05/19/2023 4:44 PM INTERNATIONAL RELATIONS PROFESSOR) Glucose WB/POC 185(H) 70 - 106 mg/dL 05/19/2023 4:56 PM INTERNATIONAL RELATIONS PROFESSOR [facility] Specimen Type Cap Fingerstick 2023 4:56 PM INTERNATIONAL RELATIONS PROFESSOR [facility] Blood BLOOD SPECIMEN / Unknown 05/19/2023 4:44 PM INTERNATIONAL RELATIONS PROFESSOR 05/19/2023 4:56 PM INTERNATIONAL RELATIONS PROFESSOR Anne Marie Poole MD LAB - POINT OF CARE ORDERABLES [facility] [address] [place] [address] * (ABNORMAL) GLUCOSE - POINT OF CARE (05/19/2023 11:29 AM INTERNATIONAL RELATIONS PROFESSOR) Glucose WB/POC 266(H) 70 - 106 mg/dL 05/19/2023 1:15 PM INTERNATIONAL RELATIONS PROFESSOR [facility] Specimen Type Cap Fingerstick 2023 1:15 PM INTERNATIONAL RELATIONS PROFESSOR [facility] Blood BLOOD SPECIMEN / Unknown 05/19/2023 11:29 AM INTERNATIONAL RELATIONS PROFESSOR 05/19/2023 1:15 PM INTERNATIONAL RELATIONS PROFESSOR Anne Marie Poole MD LAB - POINT OF CARE ORDERABLES [facility] [address] [place] [phone] * (ABNORMAL) GLUCOSE - POINT OF CARE (05/19/2023 7:48 AM INTERNATIONAL RELATIONS PROFESSOR) Glucose WB/POC 199(H) 70 - 106 mg/dL 05/19/2023 8:05 AM INTERNATIONAL RELATIONS PROFESSOR [facility] Specimen Type Cap Fingerstick 2023 8:05 AM INTERNATIONAL RELATIONS PROFESSOR [facility] Blood BLOOD SPECIMEN / Unknown 05/19/2023 7:48 AM INTERNATIONAL RELATIONS PROFESSOR 05/19/2023 8:05 AM INTERNATIONAL RELATIONS PROFESSOR Anne Marie Poole MD LAB - POINT OF CARE ORDERABLES [facility] [address] [place] [phone] * (ABNORMAL) GLUCOSE - POINT OF CARE (05/18/2023 8:21 PM INTERNATIONAL RELATIONS PROFESSOR) Glucose WB/POC 210(H) 70 - 106 mg/dL 05/18/2023 8:38 PM INTERNATIONAL RELATIONS PROFESSOR [facility] Specimen Type Cap Fingerstick 2023 8:38 PM INTERNATIONAL RELATIONS PROFESSOR [facility] Blood BLOOD SPECIMEN / Unknown 05/18/2023 8:21 PM INTERNATIONAL RELATIONS PROFESSOR 05/18/2023 8:38 PM INTERNATIONAL RELATIONS PROFESSOR Jamie Lake MD LAB - POINT OF CARE ORDERABLES Performing Organization Address [facility]/ZIP Co de Phone Number [facility] [address] [place] [phone] * (ABNORMAL) GLUCOSE - POINT OF CARE (05/18/2023 4:36 PM INTERNATIONAL RELATIONS PROFESSOR) Glucose WB/POC 198(H) 70 - 106 mg/dL 05/18/2023 4:46 PM INTERNATIONAL RELATIONS PROFESSOR [facility] Specimen Type Cap Fingerstick 2023 4:46 PM INTERNATIONAL RELATIONS PROFESSOR [facility] Blood BLOOD SPECIMEN / Unknown 05/18/2023 4:36 PM INTERNATIONAL RELATIONS PROFESSOR 05/18/2023 4:46 PM INTERNATIONAL RELATIONS PROFESSOR Jamie Lake MD LAB - POINT OF CARE ORDERABLES Performing Organization Address [facility] de Phone Number [facility] [address] [place] [phone] * (ABNORMAL) GLUCOSE - POINT OF CARE (05/18/2023 11:24 AM INTERNATIONAL RELATIONS PROFESSOR) Glucose WB/POC 200(H) 70 - 106 mg/dL 05/18/2023 12:44 PM INTERNATIONAL RELATIONS PROFESSOR [facility] Specimen Type Cap Fingerstick 2023 12:44 PM INTERNATIONAL RELATIONS PROFESSOR [facility] Blood BLOOD SPECIMEN / Unknown 05/18/2023 11:24 AM INTERNATIONAL RELATIONS PROFESSOR 05/18/2023 12:44 PM INTERNATIONAL RELATIONS PROFESSOR Jamie Lake MD LAB - POINT OF CARE ORDERABLES Performing Organization Address [facility] Co de Phone Number [facility] [address] [place] [phone] * (ABNORMAL) GLUCOSE - POINT OF CARE (05/18/2023 7:36 AM INTERNATIONAL RELATIONS PROFESSOR) Glucose WB/POC 189(H) 70 - 106 mg/dL 05/19/2023 6:33 AM INTERNATIONAL RELATIONS PROFESSOR [facility] Specimen Type Cap Fingerstick 2023 6:33 AM INTERNATIONAL RELATIONS PROFESSOR [facility] Blood BLOOD SPECIMEN / Unknown 05/18/2023 7:36 AM INTERNATIONAL RELATIONS PROFESSOR 05/19/2023 6:33 AM INTERNATIONAL RELATIONS PROFESSOR Jamie Lake MD LAB - POINT OF CARE ORDERABLES Performing Organization Address [facility]/ZIP Co de Phone Number [facility] [address] [place] [address] [phone] * (ABNORMAL) GLUCOSE - POINT OF CARE (05/17/2023 8:38 PM INTERNATIONAL RELATIONS PROFESSOR) Glucose WB/POC 166(H) 70 - 106 mg/dL 05/17/2023 9:17 PM INTERNATIONAL RELATIONS PROFESSOR [facility] Specimen Type Cap Fingerstick 2023 9:17 PM INTERNATIONAL RELATIONS PROFESSOR [facility] Blood BLOOD SPECIMEN / Unknown 05/17/2023 8:38 PM INTERNATIONAL RELATIONS PROFESSOR 05/17/2023 9:17 PM INTERNATIONAL RELATIONS PROFESSOR Jamie Lake MD LAB - POINT OF CARE ORDERABLES Performing Organization Address [facility] Co de Phone Number [facility] [address] [place] [address] [phone] * (ABNORMAL) GLUCOSE - POINT OF CARE (05/17/2023 4:51 PM INTERNATIONAL RELATIONS PROFESSOR) Glucose WB/POC 187(H) 70 - 106 mg/dL 05/17/2023 5:19 PM INTERNATIONAL RELATIONS PROFESSOR [facility] Specimen Type Cap Fingerstick 2023 5:19 PM INTERNATIONAL RELATIONS PROFESSOR [facility] Blood BLOOD SPECIMEN / Unknown 05/17/2023 4:51 PM INTERNATIONAL RELATIONS PROFESSOR 05/17/2023 5:19 PM INTERNATIONAL RELATIONS PROFESSOR Jamie Lake MD LAB - POINT OF CARE ORDERABLES Performing Organization Address [facility] Co de Phone Number [facility] [address] [place] [address] [phone] * (ABNORMAL) GLUCOSE - POINT OF CARE (05/17/2023 11:34 AM INTERNATIONAL RELATIONS PROFESSOR) Glucose WB/POC 144(H) 70 - 106 mg/dL 05/17/2023 11:48 AM INTERNATIONAL RELATIONS PROFESSOR [facility] Specimen Type Cap Fingerstick 2023 11:48 AM INTERNATIONAL RELATIONS PROFESSOR [facility] Blood BLOOD SPECIMEN / Unknown 05/17/2023 11:34 AM INTERNATIONAL RELATIONS PROFESSOR 05/17/2023 11:48 AM INTERNATIONAL RELATIONS PROFESSOR Jamie Lake MD LAB - POINT OF CARE ORDERABLES Performing Organization Address [facility]/ZIP Co de Phone Number [facility] [address] [place] [phone] * (ABNORMAL) GLUCOSE - POINT OF CARE (05/17/2023 8:09 AM INTERNATIONAL RELATIONS PROFESSOR) Glucose WB/POC 185(H) 70 - 106 mg/dL 05/17/2023 8:21 AM INTERNATIONAL RELATIONS PROFESSOR [facility] Specimen Type Cap Fingerstick 2023 8:21 AM INTERNATIONAL RELATIONS PROFESSOR [facility] Blood BLOOD SPECIMEN / Unknown 05/17/2023 8:09 AM INTERNATIONAL RELATIONS PROFESSOR 05/17/2023 8:21 AM INTERNATIONAL RELATIONS PROFESSOR Jamie Lake MD LAB - POINT OF CARE ORDERABLES Performing Organization Address [facility] Co de Phone Number [facility] [address] [place] [phone] * (ABNORMAL) GLUCOSE - POINT OF CARE (05/16/2023 6:44 PM INTERNATIONAL RELATIONS PROFESSOR) Glucose WB/POC 229(H) 70 - 106 mg/dL 05/16/2023 6:50 PM INTERNATIONAL RELATIONS PROFESSOR [facility] Specimen Type Cap Fingerstick 2023 6:50 PM INTERNATIONAL RELATIONS PROFESSOR [facility] Blood BLOOD SPECIMEN / Unknown 05/16/2023 6:44 PM INTERNATIONAL RELATIONS PROFESSOR 05/16/2023 6:50 PM INTERNATIONAL RELATIONS PROFESSOR Jamie Lake MD LAB - POINT OF CARE ORDERABLES Performing Organization Address [facility]/ZIP Co de Phone Number [facility] [address] [place] [phone] * (ABNORMAL) GLUCOSE - POINT OF CARE (05/16/2023 4:56 PM INTERNATIONAL RELATIONS PROFESSOR) Glucose WB/POC 190(H) 70 - 106 mg/dL 05/16/2023 5:06 PM INTERNATIONAL RELATIONS PROFESSOR [facility] Specimen Type Cap Fingerstick 2023 5:06 PM INTERNATIONAL RELATIONS PROFESSOR [facility] Blood BLOOD SPECIMEN / Unknown 05/16/2023 4:56 PM INTERNATIONAL RELATIONS PROFESSOR 05/16/2023 5:06 PM INTERNATIONAL RELATIONS PROFESSOR Jamie Lake MD LAB - POINT OF CARE ORDERABLES Performing Organization Address [facility]/ZIP Co de Phone Number [facility] [address] [place] [phone] * (ABNORMAL) GLUCOSE - POINT OF CARE (05/16/2023 9:45 AM INTERNATIONAL RELATIONS PROFESSOR) Glucose WB/POC 184(H) 70 - 106 mg/dL 05/16/2023 9:55 AM INTERNATIONAL RELATIONS PROFESSOR [facility] Specimen Type Cap Fingerstick 2023 9:55 AM INTERNATIONAL RELATIONS PROFESSOR [facility] Blood BLOOD SPECIMEN / Unknown 05/16/2023 9:45 AM INTERNATIONAL RELATIONS PROFESSOR 05/16/2023 9:55 AM INTERNATIONAL RELATIONS PROFESSOR Jamie Lake MD LAB - POINT OF CARE ORDERABLES Performing Organization Address [facility] de Phone Number [facility] [address] [place] [phone] * (ABNORMAL) BASIC METABOLIC PANEL (CALCIUM TOTAL) (05/16/2023 2:35 AM INTERNATIONAL RELATIONS PROFESSOR) Glucose 174(H) 70 - 105 mg/dL 05/16/2023 2:52 AM INTERNATIONAL RELATIONS PROFESSOR [facility] Sodium 140 136 - 145 mmol/L 05/16/2023 2:52 AM INTERNATIONAL RELATIONS PROFESSOR [facility] Potassium 4.1 3.5 - 5.1 mmol/L 05/16/2023 2:52 AM [facility] Chloride 107 98 - 107 mmol/L 05/16/2023 2:52 AM [facility] CO2 25 22 - 29 mmol/L 05/16/2023 2:52 AM INTERNATIONAL RELATIONS PROFESSOR [facility] Calcium 9.0 8.4 - 10.4 mg/dL 05/16/2023 2:52 AM [facility] Anion Gap 8 6 - 16 mmol/L 05/16/2023 2:52 AM [facility] BUN 13 7 - 26 mg/dL 05/16/2023 2:52 AM [facility] Creatinine 0.67 0.57 - 1.11 mg/dL 05/16/2023 2:52 AM [facility] eGFR by CKD-EPI >90 >=90 mL/min/1.7 3 m2 05/16/2023 2:52 AM [facility] Blood BLOOD SPECIMEN / Unknown Venipuncture / Unknown 05/16/2023 2:35 AM INTERNATIONAL RELATIONS PROFESSOR 05/16/2023 2:35 AM INTERNATIONAL RELATIONS PROFESSOR Mary Velasquez MD LAB - CHEMISTRY ANGEL SPE[facility] Organization Address City/State/ZIP Co de Phone Number [facility] [address] [place], [place] [phone] * (ABNORMAL) CBC W AUTO DIFFERENTIAL (05/15/2023 10:01 PM [facility]) WBC 10.8(H) 4.0 - 10.7 x10E9/L 05/15/2023 10:11 PM [facility] RBC Count 4.38 3.90 - 5.20 x10E12/L 05/15/2023 10:11 PM [facility] Hemoglobin 12.8 11.9 - 15.8 g/dL 05/15/2023 10:11 PM [facility] Hematocrit 40.4 34.8 - 46.1 % 05/15/2023 10:11 PM [facility] MCV 92.2 80.0 - 98.0 fL 05/15/2023 10:11 PM [facility] MCH 29.2 26.7 - 33.6 pg 05/15/2023 10:11 PM [facility] MCHC 31.7 31.7 - 36.3 g/dL 05/15/2023 10:11 PM [facility] RDW-CV 13.6 11.3 - 14.8 % 05/15/2023 10:11 PM [facility] Platelet Count 275 150 - 420 x10E9/L 05/15/2023 10:11 PM [facility] MPV 10.2 7.8 - 11.4 fL 05/15/2023 10:11 PM [facility] Neutrophil % 60.3 41.0 - 74.0 % 05/15/2023 10:11 PM [facility] Lymphocyte % 28.7 17.0 - 47.0 % 05/15/2023 10:11 PM [facility] Monocyte % 7.7 3.0 - 11.0 % 05/15/2023 10:11 PM [facility] Eosinophil % 2.6 0.0 - 7.0 % 05/15/2023 10:11 PM [facility] Basophil % 0.4 0.0 - 1.6 % 05/15/2023 10:11 PM [facility] Immature Granulocytes % 0.3 0.0 - 1.0 % 05/15/2023 10:11 PM [facility] Neutrophil Absolute 6.53 1.60 - 7.50 x10E9/L 05/15/2023 10:11 PM [facility] Lymphocyte Absolute 3.11 1.00 - 4.40 x10E9/L 05/15/2023 10:11 PM [facility] Monocyte Absolute 0.83 0.15 - 1.00 x10E9/L 05/15/2023 10:11 PM [facility] Eosinophil Absolute 0.28 0.00 - 0.60 x10E9/L 05/15/2023 10:11 PM [facility] Basophil Absolute 0.04 0.00 - 0.13 x10E9/L 05/15/2023 10:11 PM [facility] Blood BLOOD SPECIMEN / Unknown Venipuncture / Unknown 05/15/2023 10:01 PM INTERNATIONAL RELATIONS PROFESSOR 05/15/2023 10:08 PM [facility] Emily Felix MD LAB - HEMATOLOGY ORDERABLES [facility] [address] [place] [address] * (ABNORMAL) COMPREHENSIVE METABOLIC PANEL (05/15/2023 10:01 PM [facility]) [facility] Glucose 197(H) 70 - 105 mg/dL 05/15/2023 10:26 PM [facility] Sodium 139 136 - 145 mmol/L 05/15/2023 10:26 PM [facility] Potassium 4.7 3.5 - 5.1 mmol/L 05/15/2023 10:26 PM [facility] Comment:Specimen is Moderate ly Hemolyzed. This potassium result may be falsely elevated. Chloride 107 98 - 107 mmol/L 05/15/2023 10:26 PM [facility] CO2 21(L) 22 - 29 mmol/L 05/15/2023 10:26 PM [facility] Calcium 9.6 8.4 - 10.4 mg/dL 05/15/2023 10:26 PM [facility] Anion Gap 11 6 - 16 mmol/L 05/15/2023 10:26 PM [facility] BUN 15 7 - 26 mg/dL 05/15/2023 10:26 PM [facility] Creatinine 0.76 0.57 - 1.11 mg/dL 05/15/2023 10:26 PM [facility] Alkaline Phosphatase 74 40 - 150 U/L 05/15/2023 10:26 PM [facility] ALT 22 0 - 55 U/L 05/15/2023 10:26 PM [facility] AST 24 5 - 34 U/L 05/15/2023 10:26 PM [facility] Comment:Specimen is Moderate ly Hemolyzed. This AST result may be falsely elevated. Protein Total 8.4(H) 6.4 - 8.3 gm/dL 05/15/2023 10:26 PM [facility] Comment:Specimen is Moderate ly Hemolyzed. This total protein result may be falsely elevated. Albumin 3.3(L) 3.4 - 5.0 gm/dL 05/15/2023 10:26 PM [facility] Bilirubin Total 0.4 0.2 - 1.2 mg/dL 05/15/2023 10:26 PM [facility] eGFR by CKD-EPI 86(L) >=90 mL/min/1.7 3 m2 05/15/2023 10:26 PM [facility] Blood BLOOD SPECIMEN / Unknown Venipuncture / Unknown 05/15/2023 10:01 PM [facility] 05/15/2023 10:08 PM INTERNATIONAL RELATIONS PROFESSOR Emily Felix MD LAB - CHEMISTRY ORDERABLES [facility] [address] [place], [place] [phone] documented in this encounter Visit Diagnoses Diagnosis Chronic left-sided low back pain with left-sided sciatica Chronic left-sided low back pain with left-sided sciatica documented in this encounter Administered Medications Inactive Administered Medications - up to 3 most recent administrations Medication Order MAR Action Action Date Dose Rate Site 0.9% NaCl injection 1-10 mL 1-10 mL, Intracatheter, PRN, Other, peripheral line flush, Starting on Mon05/16/23 at 0011, Until 05/20/23 at 1916, Flush peripheral IV catheter with 1-10 mL of normal saline before and after medications and prn to clear blood from the line or to verify patency. $ Given 05/18/2023 2:49 PM INTERNATIONAL RELATIONS PROFESSOR 3 mL $ Given 05/18/2023 6:47 AM INTERNATIONAL RELATIONS PROFESSOR 3 mL 0.9% NaCl injection 3 mL 3 mL, Intracatheter, EVERY 8 HOURS, First dose on Mon05/16/23 at 0015, Until Discontinued, Flush peripheral IV catheter with 3 mL of normal saline every 8 hours. $ Given 05/20/2023 3:10 PM INTERNATIONAL RELATIONS PROFESSOR 3 mL $ Given 05/19/2023 6:28 AM INTERNATIONAL RELATIONS PROFESSOR 3 mL $ Given 05/18/2023 8:34 PM INTERNATIONAL RELATIONS PROFESSOR 3 mL acetaminophen (Tylenol) tablet 1,000 mg 1,000 mg, Oral, 3 TIMES DAILY, 9 doses, First dose (after last modification) on Mon05/18/23 at 1400, Last dose on Mon05/21/23 at 0900, Patient preference for lesser PRN pain meds may be honored when the patient requests a less strong medication, a lower dose, or a less intrusive route of administration when the lesser drug, dose and route have been ordered for the patient. This patient request must be documented in the MAR. $ Given 05/20/2023 3:10 PM INTERNATIONAL RELATIONS PROFESSOR 1,000 mg $ Given 05/20/2023 8:28 AM INTERNATIONAL RELATIONS PROFESSOR 1,000 mg $ Given 05/19/2023 10:08 PM INTERNATIONAL RELATIONS PROFESSOR 1,000 mg acetaminophen (Tylenol) tablet 650 mg 650 mg, Oral, 3 TIMES DAILY, 9 doses, First dose on Mon05/16/23 at 1400, Last dose on Mon05/19/23 at 0900, Patient preference for lesser PRN pain meds may be honored when the patient requests a less strong medication, a lower dose, or a less intrusive route of administration when the lesser drug, dose and route have been ordered for the patient. This patient request must be documented in the MAR. $ Given 05/18/2023 8:32 AM INTERNATIONAL RELATIONS PROFESSOR 650 m g $ Given 05/17/2023 8:47 PM INTERNATIONAL RELATIONS PROFESSOR 650 mg $ Given 05/17/2023 1:33 PM INTERNATIONAL RELATIONS PROFESSOR 650 mg amitriptyline (Elavil) tablet 25 mg 25 mg, Oral, AT BEDTIME, First dose (after last reorder) on Mon05/17/23 at 2115, Until Discontinued $ Given 05/19/2023 10:08 PM INTERNATIONAL RELATIONS PROFESSOR 25 mg $ Given 05/18/2023 8:34 PM INTERNATIONAL RELATIONS PROFESSOR 25 mg $ Given 05/17/2023 8:47 PM INTERNATIONAL RELATIONS PROFESSOR 25 mg dextrose 10 % IV bolus 12.5 g, at 999 mL/hr, Intravenous, PRN, Other, Bedside Glucose less than 70 mg/dL -If NOT able to eat and/or NPO and with IV Access, Starting on Mon05/16/23 at 0011, Until 05/20/23 at 1916, If NOT able to eat and/or NPO [...] 10 % IV bolus 25 g, at 999 mL/hr, Intravenous, PRN, Other, Bedside Glucose less than 70 mg/dL -If NOT able to eat and/or NPO and with IV Access, Starting on Mon05/16/23 at 0011, Until 05/20/23 at 1916, If NOT able to eat and/or NPO [...] capsule 25 mg 25 mg, Oral, EVERY 6 HOURS PRN, Itching, Starting on Mon05/16/23 at 0159, Until 05/20/23 at 1916 $ Given 05/19/2023 7:52 PM INTERNATIONAL RELATIONS PROFESSOR 25 mg $ Given 05/19/2023 12:49 PM INTERNATIONAL RELATIONS PROFESSOR 25 mg $ Given 05/17/2023 10:23 AM INTERNATIONAL RELATIONS PROFESSOR 25 mg exemestane (Aromasin) tablet 25 mg 25 mg, Oral, AT BEDTIME, First dose on Mon05/19/23 at 2100, Until Discontinued $ Given 05/19/2023 10:10 PM INTERNATIONAL RELATIONS PROFESSOR 25 mg glucagon (Glucagen) injection 1 mg 1 mg, Subcutaneous, PRN, Bedside Glucose less than 70 mg/dL - If NOT able to eat and/or NPO and withOUT IV Access, Starting on Mon05/16/23 at 0011, Until 05/20/23 at 1916, If NOT able to eat and/or NPO [...] gently; use immediately and discard unused portion hydroCHLOROthiazide (Hydrodiuril) tablet 25 mg 25 mg, Oral, DAILY, First dose on Mon05/16/23 at 0015, Until Discontinued $ Given 05/20/2023 8:28 AM INTERNATIONAL RELATIONS PROFESSOR 25 mg $ Given 05/19/2023 9:21 AM INTERNATIONAL RELATIONS PROFESSOR 25 mg $ Given 05/18/2023 8:32 AM INTERNATIONAL RELATIONS PROFESSOR 25 mg HYDROcodone-acetaminophen ([place]) 10-325 MG tablet 1 tablet 1 tablet, Oral, EVERY 6 HOURS PRN, Severe Pain, Starting on Mon05/16/23 at 0010, Until Mon05/16/23 at 1233, Patient preference for lesser PRN pain meds may be honored when the patient requests a less strong medication, a lower dose, or a less intrusive route of administration when the lesser drug, dose and route have been ordered for the patient. This patient request must be documented in the MAR. $ Given 05/16/2023 9:42 AM INTERNATIONAL RELATIONS PROFESSOR 1 tablet $ Given 05/16/2023 12:57 AM INTERNATIONAL RELATIONS PROFESSOR 1 tablet hydrOXYzine HCl (Atarax) tablet 25 mg 25 mg, Oral, 3 TIMES DAILY PRN, Itching, Starting on Mon05/16/23 at 2001, Until Mon05/20/23 at 1916 $ Given 05/20/2023 10:38 AM INTERNATIONAL RELATIONS PROFESSOR 25 mg $ Given 05/20/2023 1:35 AM INTERNATIONAL RELATIONS PROFESSOR 25 mg $ Given 05/18/2023 8:32 AM INTERNATIONAL RELATIONS PROFESSOR 25 mg insulin aspart (NovoLOG) pen 0-6 Units 0-6 Units, Subcutaneous, 3 TIMES DAILY WITH MEALS, First dose on Mon05/16/23 at 0800, Until Discontinued, Low Dose: Correction [...] give at the same time. $ Given 05/20/2023 11:41 AM INTERNATIONAL RELATIONS PROFESSOR 3 Units Righ t Arm $ Given 05/20/2023 8:19 AM INTERNATIONAL RELATIONS PROFESSOR 2 Units Ri ght Arm $ Given 05/19/2023 6:50 PM INTERNATIONAL RELATIONS PROFESSOR 2 Units Ab dominal Tissue insulin aspart (NovoLOG) pen 10 Units 10 Units, Subcutaneous, 3 TIMES DAILY WITH MEALS, First dose on Mon05/19/23 at 1200, Until Discontinued, Obtain current Blood Glucose if necessary. May be given immediately before meal, during meal, or immediately after meal is eaten. Meal must be present before administration. $ Given 05/20/2023 11:41 AM INTERNATIONAL RELATIONS PROFESSOR 10 Units R ight Arm $ Given 05/20/2023 8:20 AM INTERNATIONAL RELATIONS PROFESSOR 10 Units Ri ght Arm $ Given 05/19/2023 6:49 PM INTERNATIONAL RELATIONS PROFESSOR 10 Units Ab dominal Tissue insulin aspart (NovoLOG) pen 15 Units 15 Units, Subcutaneous, 3 TIMES DAILY WITH MEALS, First dose on Mon05/16/23 at 0800, Until Discontinued, Hold MEALTIME insulin if patient is NPO or eating less than 50% of meals. -OR- if carb intake for the meal is less than 30 grams. $ Given 05/16/2023 5:53 PM INTERNATIONAL RELATIONS PROFESSOR 15 Units Abdominal Tissue insulin glargine (Lantus) pen 45 Units 45 Units, Subcutaneous, EVERY MORNING, First dose on Mon05/16/23 at 0700, Until Discontinued, DO NOT HOLD even if patient is NPO Consider calling physician for dose reduction if patient is made NPO. . WASTE DISPOSAL INSTRUCTIONS: Black Bin Disposal required. $ Given 05/20/2023 8:21 AM INTERNATIONAL RELATIONS PROFESSOR 45 Units Right Arm $ Given 05/19/2023 8:22 AM INTERNATIONAL RELATIONS PROFESSOR 45 Units Ab dominal Tissue $ Given 05/18/2023 8:36 AM INTERNATIONAL RELATIONS PROFESSOR 45 Units Ab dominal Tissue lidocaine (Lidoderm) 5 % patch 1 patch 1 patch, Administer over 12 Hours, EVERY 24 HOURS, First dose on Mon05/18/23 at 1000, Until Discontinued, Apply near areas of pain and remove patch after a max of 12 hours of application within a 24 hour period. $ Applied 05/19/2023 9:21 AM INTERNATIONAL RELATIONS PROFESSOR 1 patch Back $ Applied 05/18/2023 10:17 AM INTERNATIONAL RELATIONS PROFESSOR 1 patch B ack methocarbamol (Robaxin) tablet 500 mg 500 mg, Oral, EVERY 6 HOURS PRN, Muscle Spasms, Starting on Mon05/16/23 at 0010, Until Mon05/16/23 at 0159 $ Given 05/16/2023 12:57 AM INTERNATIONAL RELATIONS PROFESSOR 500 mg methocarbamol (Robaxin) tablet 750 mg 750 mg, Oral, EVERY 6 HOURS PRN, Muscle Spasms, Starting on Mon05/16/23 at 1232, Until Mon05/20/23 at 1916 $ Given 05/19/2023 10:07 PM INTERNATIONAL RELATIONS PROFESSOR 750 mg $ Given 05/19/2023 9:21 AM INTERNATIONAL RELATIONS PROFESSOR 750 mg $ Given 05/18/2023 11:33 PM INTERNATIONAL RELATIONS PROFESSOR 750 mg morphine injection 4 mg 4 mg, Intravenous, NOW, 1 dose, On Mon05/15/23 at 2200, Patient preference for lesser PRN pain meds may be honored when the patient requests a less strong medication, a lower dose, or a less intrusive route of administration when the lesser drug, dose and route have been ordered for the patient. This patient request must be documented in the MAR. $ Given 05/15/2023 10:09 PM INTERNATIONAL RELATIONS PROFESSOR 4 mg morphine injection 4 mg 4 mg, Intravenous, NOW, 1 dose, On Mon05/15/23 at 2345, Patient preference for lesser PRN pain meds may be honored when the patient requests a less strong medication, a lower dose, or a less intrusive route of administration when the lesser drug, dose and route have been ordered for the patient. This patient request must be documented in the MAR. $ Given 05/15/2023 11:56 PM INTERNATIONAL RELATIONS PROFESSOR 4 mg morphine injection 4 mg 4 mg, Intravenous, EVERY 3 HOURS PRN, Severe Pain, Starting on Mon05/16/23 at 0011, Until Mon05/19/23 at 1359, Patient preference for lesser PRN pain meds may be honored when the patient requests a less strong medication, a lower dose, or a less intrusive route of administration when the lesser drug, dose and route have been ordered for the patient. This patient request must be documented in the MAR. $ Given 05/19/2023 10:18 AM INTERNATIONAL RELATIONS PROFESSOR 4 mg $ Given 05/19/2023 4:53 AM INTERNATIONAL RELATIONS PROFESSOR 4 mg $ Given 05/19/2023 12:31 AM INTERNATIONAL RELATIONS PROFESSOR 4 mg ondansetron (disintegrating) (Zofran ODT) tablet 4 mg 4 mg, Oral, ONCE, 1 dose, On Valeri 05/18/23 at 0115, Dissolved orally on tongue $ Given 05/18/2023 1:24 AM INTERNATIONAL RELATIONS PROFESSOR 4 mg ondansetron (Zofran) injection 4 mg 4 mg, Intravenous, ONCE, 1 dose, On Mon05/15/23 at 2215, Administer over 2 to 5 minutes. $ Given 05/15/2023 10:09 PM INTERNATIONAL RELATIONS PROFESSOR 4 mg oxyCODONE (immediate release) (Roxicodone) tablet 10 mg 10 mg, Oral, EVERY 4 HOURS PRN, Severe Pain, Starting on Valeri 05/18/23 at 0915, Until 05/20/23 at 1916, Patient preference for lesser PRN pain meds may be honored when the patient requests a less strong medication, a lower dose, or a less intrusive route of administration when the lesser drug, dose and route have been ordered for the patient. This patient request must be documented in the MAR. $ Given 05/20/2023 5:07 AM INTERNATIONAL RELATIONS PROFESSOR 10 mg $ Given 05/19/2023 7:52 PM INTERNATIONAL RELATIONS PROFESSOR 10 mg $ Given 05/19/2023 2:30 PM INTERNATIONAL RELATIONS PROFESSOR 10 mg oxyCODONE (immediate release) (Roxicodone) tablet 5 mg 5 mg, Oral, EVERY 4 HOURS PRN, Moderate Pain, Starting on Valeri 05/18/23 at 0915, Until 05/20/23 at 1916, Patient preference for lesser PRN pain meds may be honored when the patient requests a less strong medication, a lower dose, or a less intrusive route of administration when the lesser drug, dose and route have been ordered for the patient. This patient request must be documented in the MAR. $ Given 05/20/2023 12:21 PM INTERNATIONAL RELATIONS PROFESSOR 5 mg $ Given 05/18/2023 3:49 PM INTERNATIONAL RELATIONS PROFESSOR 5 mg rivaroxaban (Xarelto) tablet 20 mg 20 mg, Oral, DAILY WITH DINNER, First dose on Mon05/16/23 at 0200, Until Discontinued, For tube administration, please refer to the MAR References links: Administration Dose of 15 mg or greater should be taken with food $ Given 05/19/2023 6:49 PM CS T 20 mg $ Given 05/18/2023 5:49 PM INTERNATIONAL RELATIONS PROFESSOR 20 mg $ Given 05/17/2023 5:33 PM INTERNATIONAL RELATIONS PROFESSOR 20 mg tolterodine ER 24hr (Detrol LA) capsule 2 mg 2 mg, Oral, DAILY, First dose (after last modification) on Mon05/16/23 at 0900, Until Discontinued, Do not crush or chew. $ Given 05/20/2023 8:28 AM INTERNATIONAL RELATIONS PROFESSOR 2 mg $ Given 05/19/2023 9:21 AM INTERNATIONAL RELATIONS PROFESSOR 2 mg $ Given 05/18/2023 8:32 AM INTERNATIONAL RELATIONS PROFESSOR 2 mg documented in this encounter Active and Recently Administered Medications Times are shown in INTERNATIONAL RELATIONS PROFESSOR. Scheduled Medication Order 05/18/2023 05/19/2023 05/20/2023 0.9% NaCl injection 3 mL(Linked Group 1) 3 mL, Intracatheter, EVERY 8 HOURS, First dose on Mon05/16/23 at 0015, Until Discontinued, Flush peripheral IV catheter with 3 mL of normal saline every 8 hours. 0603 (Not Administered - Provider: Gabbie Abebe RN - Reason: See Comments - Comment: Already given)1211 ($ Given - Provider: Rosa Fuentes, RN)203 ($ Given - Provider: Haydee Valadez RN) 0628 ($ Given - Provider: Haydee Valadez RN)1400 (Not Administered - Provider: Dania Shelby Nurse - Reason: Per Administration Instructions)2211 (Not Administered - Provider: Zoey De La Rosa RN - Reason: Loss of Access) 0508 (Not Administered - Provider: Zoey De La Rosa RN - Reason: Loss of Access)1510 ($ Given - Provider: Consuelo Poole RN) acetaminophen (Tylenol) tablet 1,000 mg 1,000 mg, Oral, 3 TIMES DAILY, 9 doses, First dose (after last modification) on Valeri 05/18/23 at 1400, Last dose on Mon05/21/23 at 0900, Patient preference for lesser PRN pain meds may be honored when the patient requests a less strong medication, a lower dose, or a less intrusive route of administration when the lesser drug, dose and route have been ordered for the patient. This patient request must be documented in the MAR. 1549 ($ Given - Provider: Tamika Funez, NURIS)203 ($ Given - Provider: Haydee Valadez RN) 0921 ($ Given - Provider: Dania Shelby Nurse)1430 ($ Given - Provider: Dania Shelby Nurse)2208 ($ Given - Provider: Zoey De La Rosa RN) 0828 ($ Given - Provider: Consuelo Poole, RN)1510 ($ Given - Provider: Consuelo Poole RN) acetaminophen (Tylenol) tablet 650 mg (CANCELED) 650 mg, Oral, 3 TIMES DAILY, 9 doses, First dose on Mon05/16/23 at 1400, Last dose on Mon05/19/23 at 0900, Patient preference for lesser PRN pain meds may be honored when the patient requests a less strong medication, a lower dose, or a less intrusive route of administration when the lesser drug, dose and route have been ordered for the patient. This patient request must be documented in the MAR. 0832 ($ Given - Provider: Rosa Fuentes RN) amitriptyline (Elavil) tablet 25 mg 25 mg, Oral, AT BEDTIME, First dose (after last reorder) on Mon05/17/23 at 2115, Until Discontinued 2033 ($ Given - Provider: Haydee Valadez RN) 2207 ($ Given - Provider: Zoey De La Rosa RN) exemestane (Aromasin) tablet 25 mg 25 mg, Oral, AT BEDTIME, First dose on Mon05/19/23 at 2100, Until Discontinued 2209 ($ Given - Provider: Zoey De La Rosa RN) hydroCHLOROthiazide (Hydrodiuril) tablet 25 mg 25 mg, Oral, DAILY, First dose on Mon05/16/23 at 0015, Until Discontinued 831 ($ Given - Provider: Rosa Fuentes RN) 0921 ($ Given - Provider: Loree Reina, Graduate Nurse) 0828 ($ Given - Provider: Consuelo Poole RN) insulin aspart (NovoLOG) pen 0-6 Units 0-6 Units, Subcutaneous, 3 TIMES DAILY WITH MEALS, First dose on Mon05/16/23 at 0800, Until Discontinued, Low Dose: Correction [...] combine and give at the same time. 0835 ($ Given - Provider: Rosa Fuentes RN - Comment: BG = 180s)1127 ($ Given - Provider: Rosa Fuentes RN)1750 ($ Given - Provider: Rosa Fuentes RN) 0835 ($ Given - Provider: Dania Shelby)1231 ($ Given - Provider: Dania Shelby Nurse)1850 ($ Given - Provider: Dania Shelby Nurse) 0819 ($ Given - Provider: Consuelo Poole RN)1141 ($ Given - Provider: Consuelo Poole RN)1800 (Due) insulin aspart (NovoLOG) pen 10 Units 10 Units, Subcutaneous, 3 TIMES DAILY WITH MEALS, First dose on Mon05/19/23 at 1200, Until Discontinued, Obtain current Blood Glucose if necessary. May be given immediately before meal, during meal, or immediately after meal is eaten. Meal must be present before administration. 1231 ($ Given - Provider: Dania Shelby)1849 ($ Given - Provider: Dania Shelby) 0820 ($ Given - Provider: Consuelo Poole RN)1141 ($ Given - Provider: Consuelo Poole RN)1800 (Due) insulin glargine (Lantus) pen 45 Units 45 Units, Subcutaneous, EVERY MORNING, First dose on Mon05/16/23 at 0700, Until Discontinued, DO NOT HOLD even if patient is NPO Consider calling physician for dose reduction if patient is made NPO. . WASTE DISPOSAL INSTRUCTIONS: Black Bin Disposal required. 0836 ($ Given - Provider: Rosa Fuentes RN) 0822 ($ Given - Provider: Dania Shelby) 0821 ($ Given - Provider: Consuelo Poole RN) lidocaine (Lidoderm) 5 % patch 1 patch 1 patch, Administer over 12 Hours, EVERY 24 HOURS, First dose on Mon05/18/23 at 1000, Until Discontinued, Apply near areas of pain and remove patch after a max of 12 hours of application within a 24 hour period. 1017 ($ Applied - Provider: Rosa Fuentes RN)2333 (Removed - Provider: Haydee Valadez RN) 0921 ($ Applied - Provider: Dania Shelby)2209 (Removed - Provider: Zoey De La Rosa RN) 1034 (Not Administered - Provider: Consuelo Poole RN - Reason: Refused-Patient) ondansetron (disintegrating) (Zofran ODT) tablet 4 mg (COMPLETED) 4 mg, Oral, ONCE, 1 dose, On Valeri 05/18/23 at 0115, Dissolved orally on tongue 0124 ($ Given - Provider: Gabbie Abebe, NURIS) rivaroxaban (Xarelto) tablet 20 mg 20 mg, Oral, DAILY WITH DINNER, First dose on Mon05/16/23 at 0200, Until Discontinued, For tube administration, please refer to the MAR References links: Administration Dose of 15 mg or greater should be taken with food 1749 ($ Given - Provider: Rosa Fuentes, NURIS) 1849 ($ Given - Provider: Loree Reina, Graduate Nurse) 1800 (Due) tolterodine ER 24hr (Detrol LA) capsule 2 mg 2 mg, Oral, DAILY, First dose (after last modification) on Mon05/16/23 at 0900, Until Discontinued, Do not crush or chew. 0832 ($ Given - Provider: Rosa Fuentes RN) 0921 ($ Given - Provider: Loree Reina, Graduate Nurse) 0828 ($ Given - Provider: Consuelo Poole, NURIS) PRN Medication Order 05/18/2023 05/19/2023 05/20/2023 0.9% NaCl injection 1-10 mL(Linked Group 1) 1-10 mL, Intracatheter, PRN, Other, peripheral line flush, Starting on Mon05/16/23 at 0011, Until 05/20/23 at 1916, Flush peripheral IV catheter with 1-10 mL of normal saline before and after medications and prn to clear blood from the line or to verify patency. 0647 ($ Given - Provider: Gabbie Abebe, NURIS)1449 ($ Given - Provider: Rosa Fuentes RN) dextrose 10 % IV bolus(Linked Group 2) 12.5 g, at 999 mL/hr, Intravenous, PRN, Other, Bedside Glucose less than 70 mg/dL -If NOT able to eat and/or NPO and with IV Access, Starting on Mon05/16/23 at 0011, Until 05/20/23 at 1916, If NOT able to eat and/or NPO [...] IV bolus(Linked Group 2) 25 g, at 999 mL/hr, Intravenous, PRN, Other, Bedside Glucose less than 70 mg/dL -If NOT able to eat and/or NPO and with IV Access, Starting on Mon05/16/23 at 0011, Until 05/20/23 at 1916, If NOT able to eat and/or NPO [...] capsule 25 mg 25 mg, Oral, EVERY 6 HOURS PRN, Itching, Starting on Mon05/16/23 at 0159, Until 05/20/23 at 1916 1249 ($ Given - Provider: Loree Reina, Graduate Nurse)1952 ($ Given - Provider: Loree Reina, Graduate Nurse) glucagon (Glucagen) injection 1 mg(Linked Group 2) 1 mg, Subcutaneous, PRN, Bedside Glucose less than 70 mg/dL - If NOT able to eat and/or NPO and withOUT IV Access, Starting on Mon05/16/23 at 0011, Until 05/20/23 at 1916, If NOT able to eat and/or NPO [...] Glucose less than 70 mg/dL, Starting on Mon05/16/23 at 0011, Until 05/20/23 at 1916, If able to eat and is better [...] for choices) NOTIFY PROVIDER OF HYPOGLYCEMIC EVENT. hydrOXYzine HCl (Atarax) tablet 25 mg 25 mg, Oral, 3 TIMES DAILY PRN, Itching, Starting on Mon05/16/23 at 2001, Until 05/20/23 at 1916 0832 ($ Given - Provider: Rosa Fuentes RN) 0135 ($ Given - Provider: Zoey De La Rosa RN)1038 ($ Given - Provider: Consuelo Poole RN) methocarbamol (Robaxin) tablet 750 mg 750 mg, Oral, EVERY 6 HOURS PRN, Muscle Spasms, Starting on Mon05/16/23 at 1232, Until 05/20/23 at 1916 2333 ($ Given - Provider: Haydee Valadez RN) 0921 ($ Given - Provider: Dania Shelby Nurse)2207 ($ Given - Provider: Zoey De La Rosa, RN) morphine injection 4 mg (CANCELED) 4 mg, Intravenous, EVERY 3 HOURS PRN, Severe Pain, Starting on 05/16/23 at 0011, Until 05/19/23 at 1359, Patient preference for lesser PRN pain meds may be honored when the patient requests a less strong medication, a lower dose, or a less intrusive route of administration when the lesser drug, dose and route have been ordered for the patient. This patient request must be documented in the MAR. 0124 ($ Given - Provider: Gabbie Abebe RN)0646 ($ Given - Provider: Gabbie Abebe RN)1210 ($ Given - Provider: Rosa Fuentes RN)2029 ($ Given - Provider: Haydee Valadez RN) 0031 ($ Given - Provider: Haydee Valadez RN)0453 ($ Given - Provider: Haydee Valadez RN)1018 ($ Given - Provider: Dania Shelby) oxyCODONE (immediate release) (Roxicodone) tablet 10 mg(Linked Group 3) 10 mg, Oral, EVERY 4 HOURS PRN, Severe Pain, Starting on Valeri 05/18/23 at 0915, Until 05/20/23 at 1916, Patient preference for lesser PRN pain meds may be honored when the patient requests a less strong medication, a lower dose, or a less intrusive route of administration when the lesser drug, dose and route have been ordered for the patient. This patient request must be documented in the MAR. 1549 (See Alternative - Provider: Tamika Funez RN) 1430 ($ Given - Provider: Dania Shelby Nurse)1952 ($ Given - Provider: Dania Shelby Nurse) 0507 ($ Given - Provider: Zoey De La Rosa, RN)1221 (See Alternative - Provider: Consuelo Poole RN) oxyCODONE (immediate release) (Roxicodone) tablet 5 mg(Linked Group 3) 5 mg, Oral, EVERY 4 HOURS PRN, Moderate Pain, Starting on Valeri 05/18/23 at 0915, Until 05/20/23 at 1916, Patient preference for lesser PRN pain meds may be honored when the patient requests a less strong medication, a lower dose, or a less intrusive route of administration when the lesser drug, dose and route have been ordered for the patient. This patient request must be documented in the MAR. 1549 ($ Given - Provider: Tamika Funez, NURIS) 1430 (See Alternative - Provider: Loree Reina, Graduate Nurse)1952 (See Alternative - Provider: Loree Reina, Graduate Nurse) 0507 (See Alternative - Provider: Zoey De La Rosa, NURIS)1221 ($ Given - Provider: Consuelo Poole RN) Linked Groups Order Group 1: SALINE LOCK, INSERT AND MAINTAIN (CANCELED) Routine, CONTINUOUS, Starting on Mon05/16/23 at 0015, Until Specified, New collection, Task Completed: Yes And 0.9% NaCl injection 3 mLJump to med 3 mL, Intracatheter, EVERY 8 HOURS, First dose on Mon05/16/23 at 0015, Until Discontinued, Flush peripheral IV catheter with 3 mL of normal saline every 8 hours. And 0.9% NaCl injection 1-10 mLJump to med 1-10 mL, Intracatheter, PRN, Other, peripheral line flush, Starting on Mon05/16/23 at 0011, Until 05/20/23 at 1916, Flush peripheral IV catheter with 1-10 mL of normal saline before and after medications and prn to clear blood from the line or to verify patency. Group 2: dextrose 10 % IV bolusJump to med 12.5 g, at 999 mL/hr, Intravenous, PRN, Other, Bedside Glucose less than 70 mg/dL -If NOT able to eat and/or NPO and with IV Access, Starting on Mon05/16/23 at 0011, Until 05/20/23 at 1916, If NOT able to eat and/or NPO [...] IV bolusJump to med 25 g, at 999 mL/hr, Intravenous, PRN, Other, Bedside Glucose less than 70 mg/dL -If NOT able to eat and/or NPO and with IV Access, Starting on Mon05/16/23 at 0011, Until 05/20/23 at 1916, If NOT able to eat and/or NPO [...] NPO and withOUT IV Access, Starting on Mon05/16/23 at 0011, Until 05/20/23 at 1916, If NOT able to eat and/or NPO [...] immediately and discard unused portion Group 3: oxyCODONE (immediate release) (Roxicodone) tablet 5 mgJump to med 5 mg, Oral, EVERY 4 HOURS PRN, Moderate Pain, Starting on Mon05/18/23 at 0915, Until 05/20/23 at 1916, Patient preference for lesser PRN pain meds [...] 4 HOURS PRN, Severe Pain, Starting on Valeri 05/18/23 at 0915, Until 05/20/23 at 1916, Patient preference for lesser PRN pain meds may be honored when the patient requests a less strong medication, a lower dose, or a less intrusive route of administration when the lesser drug, dose and route have been ordered for the patient. This patient request must be documented in the MAR. documented in this encounter Care Teams Protector Plate Attacher Relationship Specialty Start Date End Date Justen Gale MD PCP - General 07/05/21 documented as of this encounter
--- OUTSIDE RECORDS SUMMARY | 2024-04-26 02:31 | XMS_ITS | Encounter Summary ---
Author Organization [facility] Address [address] [place] [address] Care Team Providers Care Hair Designer Name Role Phone Justen Gale MD Primary Care Provider [phone] Encounter Details Date Type Department Care Team (Latest Contact Info) Description 05/15/2023 Travel Social History Tobacco Use Types Packs/Day [...] medical care, and heating? Somewhat hard 05/16/2023 [facility] [place] of Occupat ional Health - Occupational Stress [...] on filedocumented in this encounter Care Teams Hair Designer Relationship Specialty Start Date End Date Justen Gale MD PCP - General 07/05/21 documented as of this encounter
--- OUTSIDE RECORDS SUMMARY | 2024-04-26 02:31 | XMS_ITS | Encounter Summary ---
Author Organization [facility] Address [address] [place] [address] Care Team Providers Care Carding Doubler Name Role Phone Justen Gale MD Primary Care Provider [phone] Encounter Details Date Type Department Care Team (Latest Contact Info) Description 03/27/2023 Travel Social History Tobacco Use Types Packs/Day [...] and heating? Not hard at all 02/22/2023 [facility] [place] of Occupat ional Health - Occupational Stress [...] in a long term (including now)? No 02/22/2023 Sex and Gender [...] on filedocumented in this encounter Care Teams Carding Doubler Relationship Specialty Start Date End Date Justen Gale MD PCP - General 07/05/21 documented as of this encounter
--- OUTSIDE RECORDS SUMMARY | 2024-04-26 02:31 | XMS_ITS | Encounter Summary ---
Author Organization [facility] Address [address] [place] [address] Care Team Providers Care Career Portals Teacher Name Role Phone Justen Gale MD Primary Care Provider [phone] Encounter Details Date Type Department Care Team (Latest Contact Info) Description 05/08/2023 Travel Social History Tobacco Use Types Packs/Day [...] and heating? Not hard at all 02/22/2023 [facility] [place] of Occupat ional Health - Occupational Stress [...] place to sleep or slept in a longterm (including now)? No 02/22/2023 Sex and Gender [...] on filedocumented in this encounter Care Teams Career Portals Teacher Relationship Specialty Start Date End Date Justen Gale MD PCP - General 07/05/21 documented as of this encounter
--- OUTSIDE RECORDS SUMMARY | 2024-04-26 02:31 | XMS_ITS | Encounter Summary ---
Author Organization [facility] Address [address] [place] [address] Care Team Providers Care Analytical Research Program Manager Name Role Phone Justen Gale MD Primary Care Provider [phone] Reason for Visit * Reason Onset Date Comments Appointment 05/17/2023 Encounter Details Date Type Department Care Team (Late st Contact Info) Description 05/17/2023 Telephone [facility] - Neurosurgery [address], [place] [address] Angeline Avila, RN Appointment Social [...] medical care, and heating? Somewhat hard 05/16/2023 [facility] [place] of Occupat ional Health - Occupational Stress [...] Telephone Encounter - Angeline Avila RN - 05/17/2023 8:41 AM NUCLEAR CHEMISTRY TECHNICIAN Returned call to patient per voicemail requesting to Reschedule appt. Unable to contact, left voicemail to call Centralized Scheduling for appointments. EAR CHEMISTRY TECHNICIAN documented in this encounter Plan of Treatment Not on file documented as of this encounter Visit Diagnoses Not on filedocumented in this encounter Care Teams Analytical Research Program Manager Relationship Specialty Start Date End Date Justen Gale MD PCP - General 07/05/21 documented as of this encounter
--- OUTSIDE RECORDS SUMMARY | 2024-04-26 02:31 | XMS_ITS | Encounter Summary ---
Author Organization [facility] Address [address] [place] [place] [address] Care Team Providers Care Cloth Inspector Name Role Phone Justen Gale MD Primary Care Provider [phone] Reason for Visit * Reason Comments Wound/Incision Check Pt here for wound c heck. Pt had back stimulator placed . Pt has 2 incisions bilat lower back. Pt says she woke up last night with a large amount of drainage on her sheets. Old dressings intact from original surgery with large amount old drainage. Incisions beneath dressing beefy red around incisions and tender. +chills, +nausea, +poor appetite. Pt rates pain a 6 and increases to a 9 with movement. * Auth/Cert (Routine) Specialty Diagnoses / Procedures Referred By Contac t Referred To Contact Referral ID Status Reason Start Date Expiration Date Visits Re quested Visits Authorized [id number] 1 1 Encounter Details Date Type Department Care Team (Latest Contact Info) Description 02/21/2023 7:01 PM CDT - 02/26/2023 3:28 PM TECHNICAL BUSINESS ANALYST Hospital Encounter [address] ACUTE [address] [place] [address] Berenice Hawkins MD [address] [place] [address] Maxi Gregg MD [address] [facility] 2L [place] [address] Neurosurgery Discharge Disposition: Home or Self Care Social [...] and heating? Not hard at all 02/22/2023 [facility] - [...] Sign Reading Time Taken Comments Blood Pressure 126/63 02/26/2023 11:50 AM TECHNICAL BUSINESS ANALYST Pulse 87 02/26/2023 11:50 AM TECHNICAL BUSINESS ANALYST Temperature 36.4 ??C (97.5 ??F) 02/26/2023 8:51 AM CS T Respiratory Rate 18 02/26/2023 8:51 AM TECHNICAL BUSINESS ANALYST Oxygen Saturation 100% 02/26/2023 11:50 AM TECHNICAL BUSINESS ANALYST Inhaled Oxygen Concentration 35% 02/26/2023 4 :38 AM TECHNICAL BUSINESS ANALYST Weight 124.7 kg (275 lb) 02/21/2023 5:20 PM CDT Height 154.9 cm (5' 1 ) 02/21/2023 5:20 PM CDT Body Mass Index 51.96 02/21/2023 5:20 PM CDT documented in this encounter Functional [...] as of this encounter Discharge Summaries * Tyler Nguyen MD - 02/26/2023 7:15 AM CST Physician Discharge Summary Patient ID: Karly Marques [id number] 67 year old 1955 Admit date: 02/21/2023 Discharge date and time: 02/26/23 7:15 AM Admitting Physician: Maxi Gregg MD Discharge Physician: Tyler Nguyen MD Admission Diagnoses: <principal problem not specified> Discharge Diagnoses: Active Problems: Cellulitis, wound, post-operative Admission Condition: good Discharged Condition: same Indication for Admission: ??Concern for wound infection Hospital Course: Patient is a 67 year old female presenting with c/o wound drainage and pain. She had a new spinal stim batter placement and connection to paddle 02/16/23. Patient states that incision in her left buttock had some drainage and is very painful. Pain improved over the subsequent days while being treated with IV vanc. Blood cultures negative after 72 hours. Patient discharged on 2 weeks of bactrim. Consults: none Significant Diagnostic Studies: See hospital course Treatments: See hospital course Discharge Exam: General appearance: no distress Neuro: AOx4, moves all extremities with good strength Wound: some surrounding erythema, no fluctuance, no drainage observed. Skin edges are well aproximated.? Disposition: home This list of medications is preliminary and tentative: please see the Patient Discharge Instructions for patient's discharged home or the Facility Transfer Order for the final and accurate medications list. Current Discharge Medication List START taking these medications Details sulfamethoxazole-trimethoprim (Bactrim DS; Septra DS) 800-160 MG tablet Take 1 (one) tablet by mouth every 12 hours for 14 days CONTINUE these medications which have NOT CHANGED Details amitriptyline (ELAVIL) 25 MG tablet at bedtime amLODIPine (Norvasc) 5 MG tablet Take 1 (one) tablet by mouth once daily ascorbic acid (Vitamin C) 500 MG tablet Take 1 (one) tablet by mouth 2 times daily exemestane (AROMASIN) 25 MG tablet Take 1 (one) tablet by mouth DAILY HumaLOG KwikPen 100 UNIT/ML pen 22 (twenty two) Units 3 times daily before meals hydroCHLOROthiazide (Microzide) 12.5 MG capsule Take 1 (one) capsule by mouth once daily HYDROcodone-acetaminophen ([place]) 7.5-325 MG tablet Take 1 (one) tablet [...] TAKE 1 TABLET BY MOUTH EVERY NIGHT trospium (Sanctura) 20 MG tablet Take 1 (one) tablet by mouth 2 times daily STOP taking these medications XARELTO 20 MG tablet Comments: Reason for Stopping: Contact information for follow-up Maxi Gregg MD Specialty: Neurological Surgery [address] [place] [address] OF NEUROSURGERY [facility] [address] Next Steps: Follow up Tyler Nguyen MD, 02/26/2023 at 7:15 AM NICAL BUSINESS ANALYST * Justen Mckeon MD - 02/25/2023 11:40 AM CDT Physician Discharge Summary Patient ID: Karly Marques [id number] 67 year old 1955 Admit date: 02/21/2023 Discharge date and time: 02/25/23 11:40 AM Admitting Physician: Maxi Gregg MD Discharge Physician: Justen Mckeon MD Admission Diagnoses: <principal problem not specified> Discharge Diagnoses: Active Problems: Cellulitis, wound, post-operative Admission Condition: good Discharged Condition: same Indication for Admission: ??Concern for wound infection Hospital Course: Patient is a 67 year old female presenting with c/o wound drainage and pain. She had a new spinal stim batter placement and connection to paddle 02/16/23. Patient states that incision in her left buttock had some drainage and is very painful. Pain improved over the subsequent days while being treated with IV vanc. Blood cultures negative after 72 hours. Patient discharged on 2 weeks of bactrim. Consults: none Significant Diagnostic Studies: See hospital course Treatments: See hospital course Discharge Exam: General appearance: no distress Neuro: AOx4, moves all extremities with good strength Wound: some surrounding erythema, no fluctuance, no drainage observed. Skin edges are well aproximated.? Disposition: home This list of medications is preliminary and tentative: please see the Patient Discharge Instructions for patient's discharged home or the Facility Transfer Order for the final and accurate medications list. Current Discharge Medication List CONTINUE these medications which have NOT CHANGED Details amitriptyline (ELAVIL) 25 MG tablet at bedtime amLODIPine (Norvasc) 5 MG tablet Take 1 (one) tablet by mouth once daily ascorbic acid (Vitamin C) 500 MG tablet Take 1 (one) tablet by mouth 2 times daily exemestane (AROMASIN) 25 MG tablet Take 1 (one) tablet by mouth DAILY HumaLOG KwikPen 100 UNIT/ML pen 22 (twenty two) Units 3 times daily before meals hydroCHLOROthiazide (Microzide) 12.5 MG capsule Take 1 (one) capsule by mouth once daily HYDROcodone-acetaminophen ([place]) 7.5-325 MG tablet Take 1 (one) tablet [...] TAKE 1 TABLET BY MOUTH EVERY NIGHT trospium (Sanctura) 20 MG tablet Take 1 (one) tablet by mouth 2 times daily XARELTO 20 MG tablet Contact information for follow-up Maxi Gregg MD Specialty: Neurological Surgery [address] OF NEUROSURGERY [facility] [address] Next Steps: Follow up Justen Mckoen MD, 02/25/2023 at 11:40 AM NICAL BUSINESS ANALYST documented in this encounter Medications at Time of Discharge Medication Sig Dispensed Refills Start Date End Date exemestane (AROMASIN) 25 MG tablet Take 1 (one) tablet by mouth DAILY 04/20/2017 HumaLOG KwikPen 100 UNIT/ML pen 26 (twenty six) Units 3 times daily before meals 02/25/2022 insulin pen needle (B-D ULTRAFINE III SHORT PEN) 31G X 8 MM needle 4 times daily 300 Each 11/16/2021 Lancets (ONETOUCH DELICA PLUS 33G EXTRA FINE LANCET) USE FOUR TIMES DAILY 03/10/2021 Lantus SoloStar pen 40 (forty) Units once 02/25/2022 WoopieTOUCH ULTRA test strip 4 times daily 02/01/2021 rOPINIRole (REQUIP) 5 MG tablet TAKE 1 TABLET BY MOUTH EVERY NIGHT 06/09/2021 amitriptyline (ELAVIL) 25 MG tabletIndications:for restless legs Take 1 (one) tablet by mouth at bedtime Reasons: for restless legs 06/05/2023 amLODIPine (Norvasc) 5 MG tablet Take 1 (one) tablet by mouth once daily 05/02/2022 03/06/2023 ascorbic acid (Vitamin C) 500 MG tabletIndications:Acute cystitis with hematuria Take 1 (one) tablet by mouth 2 times daily 60 tablet 3 04/27/2022 03/06/2023 hydroCHLOROthiazide (Microzide) 12.5 MG capsule Take 1 (one) capsule by mouth once daily 07/17/2022 05/19/2023 HYDROcodone-acetaminoph en ([place]) 10-325 MG tablet Take 1 (one) tablet by mouth every 8 hours as needed for Pain Takes 3-4 times a day 05/20/2023 hydrOXYzine HCl (Atarax) 10 MG tablet Take 1 (one) tablet by mouth every 6 hours as needed (anxiety) 03/23/2023 losartan (Cozaar) 50 MG tablet Take 1 (one) tablet by mouth once daily 03/23/2023 methenamine hippurate (Hiprex) 1 GM tablet TAKE 1 TABLET BY MOUTH TWICE DAILY 60 tablet 3 12/14/2022 07/12/2023 methocarbamol (Robaxin) 500 MG tablet Take 1 (one) tablet by mouth every 6 hours as needed for Muscle Spasms 60 tablet 02/16/2023 05/19/2023 naloxone HCl (NARCAN) 4 MG/0.1ML nasal spray as needed 05/13/2021 023 oxyBUTYnin CR 24hr (Ditropan XL) 15 MG tablet Take 1 (one) tablet by mouth once daily 90 tablet 4 08/15/2022 03/08/2024 sulfamethoxazole-trimet hoprim (Bactrim DS; Septra DS) 800-160 MG tablet Take 1 (one) tablet by mouth every 12 hours for 14 days 28 tablet 02/25/2023 03/11/2023 trospium (Sanctura) 20 MG tablet Take 1 (one) tablet by mouth 2 times daily 60 tablet 2 06/08/2022 03/06/2023 documented as of this encounter Progress Notes * Chino Vera, NURIS - 02/26/2023 11:40 AM CST Problem: Pain/Discomfort Goal: Patient exhibits [...] found in the flowsheet documentation) Outcome: Progressing NICAL BUSINESS ANALYST * Yeni Sloan RN - 02/26/2023 6:18 AM CST Problem: Pain/Discomfort Goal: Patient exhibits reduced pain/discomfort as evidenced by pain scores Outcome: Progressing Goal: Patient uses pharmacological and non-pharmacological pain management strategies. Outcome: Progressing Goal: Patient verbalizes acceptable level of pain relief and ability to engage in desired activity. Outcome: Progressing NICAL BUSINESS ANALYST * Caesar Wang RN - 02/25/2023 5:41 PM CDT Problem: Pain/Discomfort Goal: Patient exhibits [...] restful, refreshing sleep pattern. Outcome: Progressing * Juve He PT - 02/25/2023 2:10 PM CDT [facility] Department of Physical Medicine & Rehabilitation Patient: Karly Marques [facility] Record Number: [id number] Date of : 1955 Age: [age] year old PT orders received. Met with pt in room who reports she is at baseline mobility level and denies need for therapy this date. Pt is ambulating in room independently with wheeled walker and has cane and walker at home. No additional PT needs identified at this time; will D/c PT orders. * Yeni Edwards OT - 02/25/2023 2:02 PM CDT [facility] Department of Physical Medicine & Rehabilitation Progress Note Patient: Karly Marques [facility] Record Number: [id number] Date of : 1955 Age: [age] year old OT consult received. Spoke with pt who reports she is ambulating without difficulty and performing basic ADL's without assistance. Pt reports being at functional baseline. Pt was educated on use of adaptive equipment for LB dressing tasks. No additional OT needs identified at this time; will D/C OT orders. * Justen Mckeon MD - 02/24/2023 11:41 PM CDT Neurosurgery Progress Note Karly Montero Shelli 02/24/23 Hospital Day: 3 Subjective: Patient resting comfortably this AM, no acute concerns expressed. Recent/Significant Events: Objective: T: 98.5 ??F (36.9 ??C) [Temp Min: 97.4 ??F (36.3 ??C) Max: 98.5 ??F (36.9 ??C)] BP: 146/56[BP Min: 118/59 Max: 149/82] MAP: 99[MAP (mmHg) Min: 77 Max: 99] HR: 77[Pulse Min: 76 Max: 83] RR: 19[Resp Min: 18 Max: 20] Sat: 99 %[SpO2 Min: 92 % Max: 99 %] ICP: [No data recorded] EVD: na Input/Output: 02/23 0701 - 02/24 0700 In: 1120 [P.O.:1120] Out: - PAIGE/Other Drain:na Respiratory: ra Labs: Recent Labs Component Name 02/24/23 0233 WBC 8.8 HGB 11.4* HCT 36.5 PLTCOUNT 187 Recent Labs Component Name 02/24/23 0233 NA 138 POTASSIUM 4.0 CO2 26 BUN 11 CREATININE 0.63 CALCIUM 8.7 GLUCOSE 213* Recent Labs Component Name 02/21/23 1830 02/16/23 1220 02/06/23 1330 INR 1.0 - 2.5* PTT - - 35.4 - = values in this interval not displayed. Imaging: no new imaging Diet: DIET REGULAR Fluids: sliv MEDICATIONS FOR CURRENT ENCOUNTER: SCHEDULED MEDICATIONS: 0.9% NaCl injection 3 mL, Intracatheter, q8h amitriptyline (Elavil) tablet 25 mg, Oral, AT BEDTIME heparin injection 7,500 Units, Subcutaneous, q8h hydrocortisone (Hytone) 1 % cream, Topical, BID insulin aspart (NovoLOG) pen 0-18 Units, Subcutaneous, TID WC insulin aspart (NovoLOG) pen 0-7 Units, Subcutaneous, AT BEDTIME losartan (Cozaar) tablet 50 mg, Oral, QDAY nystatin (Mycostatin) cream, Topical, BID nystatin (Mycostatin) powder, Topical, TID rOPINIRole (Requip) tablet 5 mg, Oral, AT BEDTIME tolterodine (Detrol) tablet 2 mg, Oral, BID ?? [] iopamidol (Isovue 370) 76 % contrast, Intravenous, Contrast - Once ?? CONTINUOUS MEDICATIONS: PRN MEDICATIONS: Or Or Or Or 0.9% NaCl injection 1-10 mL, Intracatheter, PRN dextrose 10 % IV bolus, Intravenous, PRN dextrose 10 % IV bolus, Intravenous, PRN diphenhydrAMINE (Benadryl) capsule 50 mg, Oral, q4h PRN glucagon (Glucagen) injection 1 mg, Subcutaneous, PRN glucose (Diabetic Use) (Dex4 Glucose) oral liquid, Oral, PRN glucose (Diabetic Use) oral gel, Oral, PRN glucose chew tablet 4 tablet, Oral, PRN HYDROcodone-acetaminophen ([place]) 10-325 MG tablet 1 tablet, Oral, q4h PRN HYDROcodone-acetaminophen ([place]) 5-325 MG tablet 1 tablet, Oral, q4h PRN HYDROmorphone (Dilaudid) injection 0.5 mg, Intravenous, q3h PRN hydrOXYzine HCl (Atarax) tablet 10 mg, Oral, q6h PRN ?? methocarbamol (Robaxin) tablet 500 mg, Oral, q6h PRN Neuro: awake, alert, oriented to person, place and time, ou3r, face symmetric, follows commands in all extremities with equal bilateral strength, bilateral incisions with surrounding redness, left incision has vesicles present surrounding the incision. No drainage noted from incisions Assessment: 67 year old??female??with concern for wound drainage after spinal stim battery placement.?? Patient initially with pain in the area of the left buttock incision that has alleviated. Blood cultures pending finalization. Plan: Continue to monitor neurologic exam frequently Activity as tolerated Diet as tolerated Pain control with prns as ordered Appreciate ID recommendations -vanc IV until cx negative 72 hrs -nystatin cream to bilateral incisions -HCT cream to rash SURROUNDING but not on incision -Nystatin powder to reddened areas of abdominal skin folds PTOT eval ordered due to new report of dizziness with getting up SW consult-pt likely to go home after discharge OK VTE ppx Possible DC today Justen Mckeon MD To reach Neurosurgery for questions: From 7am to 5pm please call the [facility] for Neurosurgery From 5pm to 7am please refer to [employer]) to reach the resident front load trash truck driver (changes daily) Secure chat can be used for non-urgent issues only, please expect a reasonable amount of time for responses NICAL BUSINESS ANALYST * Caesar Wang RN - 02/24/2023 6:57 PM CDT Problem: Pain/Discomfort Goal: Patient exhibits [...] restful, refreshing sleep pattern. Outcome: Progressing * Benjamin Huitron MD - 02/24/2023 12:12 PM CDT [facility] Infectious Diseases Consultation Patient Name: Karly Marques 1955 Room: [facility] Date of Admission: 02/21/2023 Date of Service: 02/24/2023 Primary Care Physician: Justen Gale MD Attending Physician: Maxi Gregg MD Reason for Infectious Disease Consultation Suspected UTI History of Present Illness HPI: Karly Marques is a 67 year old white female with a past medical history significant for past medical hx significant for DM2, Breast CA, Chronic back pain on spinal pain stimulator, LUL, depression, peripheral neuropathy, and PE. Patient presented to [facility] on 02/21/2023 with discharge from her incision site were nerve stimulatorbattery was replaced on 02/16/2023. Patient states that she woke up and found that it was oozing and her bed was a bit soaked. She is also stating that she is tender to palpation on her left incision. She denies any fevers or chills. Also denies any dysuria, hematuria, foul smelling urine or suprapubic tenderness. Medical History Past Medical History: Diagnosis Date ??? Breast cancer (CMS/HCC) ??? Chest pain ??? DVT (deep venous thrombosis) (CMS/HCC) ??? GERD (gastroesophageal reflux disease) ??? LUL (obstructive sleep apnea) w cpap ??? Other pulmonary embolism without acute cor pulmonale (CMS/HCC) ??? rls ??? Type 2 diabetes mellitus without complications (CMS/HCC) Surgical History Past Surgical History: Procedure Laterality Date ??? [...] IN THE LOWER LUMBAR REGION Social History Smoking: Smoked on her 20s Alcohol: denies history Illicit drugs/IV drug use: denies history Marital status: Children: does have children Living situation: Lives with spouse Pets: has dogs and cats Occupation: [employer] Education: [employer] Travel history: None Sick contacts: None Incarceration history: Never history: None STD history: None Sexually active: Unkwon HIV status: Unkown Hepatitis status: HepC negative in 2022 TB exposure: None Prosthetic/Implant history: Has nerve stimulator Immunizations: Immunization History Administered Date(s) Administered ??? COVID MABEL PRIMARY 18+YR 06/29/2020 ??? Covid Pfizer primary monovalent 12+ yr 0.3mL Purple cap 05/04/2021 ??? FLU VACCINE QUAD IIV4 SPLIT 0.25 ML IM 02/06/2017 ??? FLU VACCINE QUAD IIV4 SPLIT IM 02/11/2015 ??? FLU VACCINE QUAD IIV4 SPLIT PF IM 02/14/2017, 01/24/2018, 02/25/2019, 01/18/2020, 05/04/2021 ??? FLU VACCINE TRI IIV3 SPLIT IM (AFLURIA) 02/03/2020 ??? FLU VACCINE TRI IIV3 SPLIT IM (FLUVIRIN) 05/07/2013, 03/07/2014, 01/23/2016 ??? TDAP, HISTORIC VACCINE 02/23/2016 Family History Family History Problem Relation Name Age of Onset ??? Heart Disease Mother ??? Diabetes Mother ??? Cancer Father ??? Hemochromatosis Father ??? Cancer Sister ??? Heart Disease Brother I have confirmed the past medical, surgical, family and social history. Review of Systems Review of Systems Constitutional: Negative for chills and fever. HENT: Negative. Eyes: Negative. Respiratory: Negative. Cardiovascular: Negative. Gastrointestinal: Negative. Genitourinary: Negative. Musculoskeletal: Negative. Skin: Positive for itching and rash. Neurological: Negative. Endo/Heme/Allergies: Negative. Psychiatric/Behavioral: Negative. Allergies Allergies Allergen Reactions ??? Latex Rash [...] Breath ??? Piperacillin-Tazobactam In D5w Rash ??? Reslizumab Unknown ??? Skin Adhesives Skin Reactions Antimicrobial History Current Antibiotics Vancomycin Home Medications Prior to Admission medications Medication Sig Start Date End Date Taking? Authorizing Provider amitriptyline (ELAVIL) 25 MG tablet at bedtime Yes Tyler Smith MD amLODIPine (Norvasc) 5 MG tablet Take 1 (one) tablet by mouth once daily 05/02/22 Tyler Smith MD ascorbic acid (Vitamin C) 500 MG tablet Take 1 (one) tablet by mouth 2 times daily Patient not taking: Reported on 02/22/2023 04/27/22 Opal Orellana APRN-CNP exemestane (AROMASIN) 25 MG tablet Take 1 (one) tablet by mouth DAILY 04/20/17 Yes Tyler Smith MD HumaLOG KwikPen 100 UNIT/ML pen 22 (twenty two) Units 3 times daily before meals 02/25/22 Yes Tyler Smith MD hydroCHLOROthiazide (Microzide) 12.5 MG capsule Take 1 (one) capsule by mouth once daily 07/17/22 Tyler Smith MD HYDROcodone-acetaminophen ([place]) 7.5-325 MG tablet Take 1 (one) tablet by mouth every 6 hours as needed for Pain Yes ProviderTyler MD hydrOXYzine HCl (Atarax) 25 MG tablet Take 1 (one) tablet by mouth 2 times daily Patient not taking: Reported on 02/13/2023 06/08/22 Opal Orellana APRN-CNP insulin pen needle (B-D ULTRAFINE III SHORT PEN) 31G X 8 MM needle 4 times daily 11/16/21 Mckenzie Johnston MD Lancets (ONETOUCH DELICA PLUS 33G EXTRA FINE LANCET) USE FOUR TIMES DAILY 03/10/21 Tyler Smith MD Lanmakaylaus SoloStar pen ADMINISTER 50 UNITS UNDER THE SKIN EVERY MORNING 02/25/22 Yes Tyler Smith MD methenamine hippurate (Hiprex) 1 GM tablet TAKE 1 TABLET BY MOUTH TWICE DAILY 12/14/22 Yes Opal Orellana APRN-CNP methocarbamol (Robaxin) 500 MG tablet Take 1 (one) tablet by mouth every 6 hours as needed for Muscle Spasms 02/16/23 Yes Melly Banks APRN-CNP naloxone HCl (NARCAN) 4 MG/0.1ML nasal spray as needed 05/13/21 Tyler Smith MD ONETOUCH ULTRA test strip 4 times daily 02/01/21 Tyler Smith MD oxyBUTYnin CR 24hr (Ditropan XL) 15 MG tablet Take 1 (one) tablet by mouth once daily 08/15/22 Yes Opal Orellana APRN-CNP rOPINIRole (REQUIP) 5 MG tablet TAKE 1 TABLET BY MOUTH EVERY NIGHT 06/09/21 Yes Tyler Smith MD trospium (Sanctura) 20 MG tablet Take 1 (one) tablet by mouth 2 times daily 06/08/22 Opal Orellana APRN-CNP XARELTO 20 MG tablet 11/08/21 Yes Tyler Smith MD Inpatient Medications ??? 0.9% NaCl 3 mL Intracatheter q8h ??? amitriptyline 25 mg Oral AT BEDTIME ??? heparin 7,500 Units Subcutaneous q8h ??? hydrocortisone Topical BID ??? insulin aspart 0-18 Units Subcutaneous TID WC ??? insulin aspart 0-7 Units Subcutaneous AT BEDTIME ??? losartan 50 mg Oral QDAY ??? nystatin Topical BID ??? nystatin Topical TID ??? rOPINIRole 5 mg Oral AT BEDTIME ??? tolterodine 2 mg Oral BID ??? vancomycin 1,500 mg Intravenous q12h ??? vancomycin (VANCOCIN) IV dose per pharmacy Does not apply DIRECTED Objective Vitals BP 146/75 Pulse 77 Temp 98 ??F (36.7 ??C) (Oral) Resp 18 Ht 1.549 m (5' 1 ) Wt 124.7 kg (275 lb) SpO2 92% Temp (24hrs), Av.6 ??F (36.4 ??C), Min:97.3 ??F (36.3 ??C), Max:98 ??F (36.7 ??C) Physical Exam Physical Exam Constitutional: Appearance: She is obese. HENT: Head: Normocephalic. Nose: Nose normal. Mouth/Throat: Mouth: Mucous membranes are moist. Eyes: Pupils: Pupils are equal, round, and reactive to light. Cardiovascular: Rate and Rhythm: Normal rate and regular rhythm. Pulmonary: Effort: Pulmonary effort is normal. Breath sounds: Normal breath sounds. Abdominal: General: Bowel sounds are normal. Musculoskeletal: General: No swelling. Cervical back: Normal range of motion. Skin: Capillary Refill: Capillary refill takes less than 2 seconds. Comments: Maculopapular rash that is well circumscribed to incision area. Neurological: Mental Status: She is alert. Lines: PIV Lab Review CBC: Recent Labs Component Name 02/24/2323202/21/23182902/17/231837 WBC 8.8 11.6* 14.9* RBC 3.96 4.78 4.74 HGB 11.4* 13.9 13.5 HCT 36.5 42.8 42.8 MCV 92.2 89.5 90.3 BMP: Recent Labs Component Name 02/24/2323202/21/23182902/17/23183712/25/22 0356 12/24/22 0135 NA 138 137 137 - 137 CL 106 101 100 - 103 CO2 26 28 24 - 26 BUN 11 16 21 - 14 CREATININE 0.63 0.70 0.77 - 0.68 ALB 2.8* 3.6 3.6 - 2.9* PROT - 8.8* 8.9* - 7.1 - = values in this interval not displayed. estimated creatinine clearance is 109 mL/min (by C-G formula based on SCr of 0.63 mg/dL). LFTs: Recent Labs Component Name 02/21/23182902/17/23183712/24/22 0135 12/02/21 1231 09/23/21 2045 04/20/17 0404 ALKPHOS 84 76 69 84 - 77 ALT 19 18 17 15 - 17 AST 18 19 13 17 - 17 LIPASE - - - 19 - 34 - = values in this interval not displayed. Coagulation: Recent Labs Component Name 02/21/23182902/17/23183702/16/23 1220 02/06/23 1330 02/06/23 1330 11/13/21 0107 11/12/21 1823 PT 13.2 12.7 15.0* - 25.7* 15.2* - INR 1.0 1.0 1.2* - 2.5* 1.2 - PTT - - - - 35.4 77.2* 70.9* - = values in this interval not displayed. Microbiology, Imaging and other diagnostic tests MICROBIOLOGY: Microbiology Results (Displays last 21 days for this encounter ONLY) Procedure Component Value - Date/Time CULTURE URINE [[id number]] Collected: 02/22/23 024 Lab Status: Final result Specimen: Urine Clean Catch Updated: 02/23/23 1217 Culture Urine <10,000 CFU/mL urogenital charla CULTURE BLOOD [[id number]] (Normal) Collected: 02/21/232034 Lab Status: Preliminary result Specimen: Blood Peripheral Updated: 02/23/232300 Culture No growth CULTURE BLOOD [[id number]] (Normal) Collected: 02/21/232019 Lab Status: Preliminary result Specimen: Blood Peripheral Updated: 02/23/232300 Culture No growth HISTOPATHOLOGY: None at this admission IMAGING & PROCEDURES: I have independently reviewed all pertinent images. Reports in chart. Assessment and Recommendations Renal Function estimated creatinine clearance is 109 mL/min (by C-G formula based on SCr of 0.63 mg/dL). Plan/Recommendations #Suspected Fungal skin infection #Suspected contact dermitis #Asymptomatic Bacteriuria #Asymptomatic Pyuria Well circumscribed maculopapular rash in bilateral incision sites are consistent with fungal skin infection or contact dermatitis. - Hydrocortisone cream to incicion sites bilaterally to area that has rash - Nystatin cream to insicion sites bilaterally - Urine Cultures with Urogenital Charla not concerning for UTI - Blood cultures now 72hrs negative which is not concerning for bacteremia - Previous surgical wounds do not appear infected on physical exam. Patient is not septic and is clinically stable. - We recommend stopping Vancomycin as there is no concern for active infection - ID will sign off Patient seen, examined, and case/plan were discussed with my attending physician, Dr. Guevara. Benjamin Huitron MD [facility] [employer] Associated attestation - Kavon Guevara MD - 02/24/2023 7:54 PM CDT Infectious Disease Attending Note: Patient seen and examined with Resident, Dr. Huitron.Please see his note for further details. I confirm and agree with his history, exam, assessment andplan. Karly Marques is a 67 year old female was admitted 02/21/23 with concerns related to chills, drainage and pain and itching on the buttocks, mainly left side around the recent incision site w here a nerve stimulator battery was inserted on 05/19/22. There is another incision on the right buttock related to the procedure. Stimulator wires are there since 10/2021. Patient had infection of battery pack in 2021 with E coli in 2021. Patient reports allergy to tape in the past. On PE, there isan oval area of redness/erythema without induration that corresponds to the size of a bandage that was overlying the surgical incisions - both right and left incisions, no drainage now, minimal tenderness to palpation of the left buttock near the incision site. The rashes are better today. She alsohas maceration of skin and possible monilial skin rash under her large abdominal wall pannus, intert rigenously. Also, patient denies and symptoms and appears to have asymptomatic bacteriuria, too. The vancomycin that was already started can be continued until blood cultures are 72 hours old and no growth at that point. Assessment: 1. Possible monilial and contact dermatitis rash at incision sites that has improved, infection has not been identified at this point. Recommend: Nystatin powder to the intertrigenous area on the abdominal wall, Nystatin cream to the buttocks incisions and possibly 1% hydrocortisone cream as well, since the red rash there may be in part contact dermatitis and/or monilial skin rash. D/C the vancomycin since no evidence for infection. Patient was cautioned to be sure to seek attention if thereare any signs of infection at the incision sites in the future. ID will sign off, recall consult as needed. * Mary Mei, PT - 02/24/2023 10:16 AM CDT [facility] Department of Physical Medicine & Rehabilitation Patient: Karly Marques Med Record Number: [id number] Date of : 1955 Age: [age] year old 02/24/23 1000 Missed Visit Missed Visit No Activity Order * Rachel Campbell, ZAMZAM-RN HEMODIALYSIS CHARGE - 02/24/2023 9:27 AM CDT Neurosurgery Progress Note Karly Montero Shelli 02/24/23 Hospital Day: 3 Subjective: Patient is sitting at the edge of the bed eating breakfast. States she is feeling better overall today. Pain is still there but improved. Also asked about positional dizziness today that she states has been present for weeks. Recent/Significant Events: Objective: T: 98 ??F (36.7 ??C) [Temp Min: 97.3 ??F (36.3 ??C) Max: 98 ??F (36.7 ??C)] BP: 146/75[BP Min: 118/59 Max: 150/86] MAP: 95[MAP (mmHg) Min: 77 Max: 104] HR: 77[Pulse Min: 76 Max: 88] RR: 18[Resp Min: 18 Max: 20] Sat: 92 %[SpO2 Min: 92 % Max: 99 %] ICP: [No data recorded] EVD: na Input/Output: 02/23 0701 - 02/24 0700 In: 1120 [P.O.:1120] Out: - PAIGE/Other Drain:na Respiratory: ra Labs: Recent Labs Component Name 02/24/23 0233 WBC 8.8 HGB 11.4* HCT 36.5 PLTCOUNT 187 Recent Labs Component Name 02/24/23 0233 NA 138 POTASSIUM 4.0 CO2 26 BUN 11 CREATININE 0.63 CALCIUM 8.7 GLUCOSE 213* Recent Labs Component Name 02/21/23 1830 02/16/23 1220 02/06/23 1330 INR 1.0 - 2.5* PTT - - 35.4 - = values in this interval not displayed. Imaging: no new imaging Diet: DIET REGULAR Fluids: sliv MEDICATIONS FOR CURRENT ENCOUNTER: ?? SCHEDULED MEDICATIONS: ?? 0.9% NaCl injection 3 mL, Intracatheter, q8h ?? amitriptyline (Elavil) tablet 25 mg, Oral, AT BEDTIME ?? heparin injection 7,500 Units, Subcutaneous, q8h ?? hydrocortisone (Hytone) 1 % cream, Topical, BID ?? insulin aspart (NovoLOG) pen 0-18 Units, Subcutaneous, TID WC ?? insulin aspart (NovoLOG) pen 0-7 Units, Subcutaneous, AT BEDTIME ?? losartan (Cozaar) tablet 50 mg, Oral, QDAY ?? nystatin (Mycostatin) cream, Topical, BID ?? nystatin (Mycostatin) powder, Topical, TID ?? rOPINIRole (Requip) tablet 5 mg, Oral, AT BEDTIME ?? tolterodine (Detrol) tablet 2 mg, Oral, BID ?? vancomycin (Vancocin) 1,500 mg in 500 mL NaCl IVPB Premix, Intravenous, q12h ?? vancomycin (Vancocin) IV dose per pharmacy, Does not apply, DIRECTED ?? [] iopamidol (Isovue 370) 76 % contrast, Intravenous, Contrast - Once ?? [] iopamidol (Isovue 370) 76 % contrast, Intravenous, Contrast - Once ?? CONTINUOUS MEDICATIONS: ?? PRN MEDICATIONS: ?? Or ?? Or ?? Or ?? Or ?? 0.9% NaCl injection 1-10 mL, Intracatheter, PRN ?? dextrose 10 % IV bolus, Intravenous, PRN ?? dextrose 10 % IV bolus, Intravenous, PRN ?? diphenhydrAMINE (Benadryl) capsule 50 mg, Oral, q4h PRN ?? glucagon (Glucagen) injection 1 mg, Subcutaneous, PRN ?? glucose (Diabetic Use) (Dex4 Glucose) oral liquid, Oral, PRN ?? glucose (Diabetic Use) oral gel, Oral, PRN ?? glucose chew tablet 4 tablet, Oral, PRN ?? HYDROcodone-acetaminophen ([place]) 10-325 MG tablet 1 tablet, Oral, q4h PRN ?? HYDROcodone-acetaminophen ([place]) 5-325 MG tablet 1 tablet, Oral, q4h PRN ?? HYDROmorphone (Dilaudid) injection 0.5 mg, Intravenous, q3h PRN ?? hydrOXYzine HCl (Atarax) tablet 10 mg, Oral, q6h PRN ?? methocarbamol (Robaxin) tablet 500 mg, Oral, q6h PRN Neuro: awake, alert, oriented to person, place and time, ou3r, face symmetric, follows commands in all extremities with equal bilateral strength, bilateral incisions with surrounding redness, left incision has vesicles present surrounding the incision. No drainage noted from incisions Assessment: 67 year old??female??with concern for wound drainage after spinal stim battery placement.?? Patient initially with pain in the area of the left buttock incision that has alleviated. Urine cultures pending as of 02/23/23 with urogenital skin charla. Plan: Continue to monitor neurologic exam frequently Activity as tolerated Diet as tolerated Pain control with prns as ordered Appreciate ID recommendations -vanc IV until cx negative 72 hrs -nystatin cream to bilateral incisions -HCT cream to rash SURROUNDING but not on incision -Nystatin powder to reddened areas of abdominal skin folds PTOT eval ordered due to new report of dizziness with getting up SW consult-pt likely to go home after discharge OK VTE ppx Bowel movement today, continue bowel regimen Rachel Campbell APRN-RN HEMODIALYSIS CHARGE 9:27 AM 02/24/23 To reach Neurosurgery for questions: From 7am to 5pm please call the [facility] for Neurosurgery From 5pm to 7am please refer to [employer]) 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 CM will continue to follow. Pending ID final recs Orientation Level: Oriented X4: Family Support (Name and Phone): Extended Emergency Contact Information Primary Emergency Contact: Jimmie Marques Address: [address] [place] [address] [place] [address] Relation: Spouse Secondary Emergency Contact: Yunior Velez Mobile Relation: Daughter Transportation at Discharge: : daughter READMISSION RISK SCORE is 15 at 8:34 AM 02/24/2023.: Name: Theresa Aranda RN [id number] * Aixa Pride RN - 02/23/2023 10:00 AM CDT Problem: Pain/Discomfort Goal: Patient exhibits reduced pain/discomfort as evidenced by pain scores 02/23/2023 1000 by Aixa Pried RN Outcome: Progressing 02/23/2023 1000 by Aixa Pride RN Outcome: Progressing Goal: Patient uses pharmacological and non-pharmacological pain management strategies. 02/23/2023 1000 by Aixa Pride RN Outcome: Progressing 02/23/2023 1000 by Aixa Pride RN Outcome: Progressing Goal: Patient verbalizes acceptable level of pain relief and ability to engage in desired activity. 02/23/2023 1000 by Aixa Pride RN Outcome: Progressing 02/23/2023 1000 by Aixa Pride RN Outcome: Progressing Problem: Fall Risk Goal: Fall risk and fall related injury risk are minimized (interventions related to the fall risk can be found in the flowsheet documentation) 02/23/2023 1000 by Aixa Pride RN Outcome: Progressing 02/23/2023 1000 by Aixa Pride RN Outcome: Progressing Problem: Ineffective breathing pattern related to obstructive sleep apnea Goal: Maintains optimal sleep pattern, as evidenced by relaxed breathing at normal rate and depth. 02/23/2023 1000 by Aixa Pride RN Outcome: Progressing 02/23/2023 1000 by Aixa Pride RN Outcome: Progressing Goal: Adheres to CPAP (Continuous Positive Airway Pressure) device regimen as prescribed. 02/23/2023 1000 by Aixa Pride RN Outcome: Progressing 02/23/2023 1000 by Aixa Pride RN Outcome: Progressing Problem: Sleep deprivation related to sleep apnea. Goal: Achieves restful, refreshing sleep pattern. 02/23/2023 1000 by Aixa Pride RN Outcome: Progressing 02/23/2023 1000 by Aixa Pride RN Outcome: Progressing * Aixa Pride RN - 02/23/2023 10:00 AM CDT Problem: Pain/Discomfort Goal: Patient exhibits [...] restful, refreshing sleep pattern. Outcome: Progressing * Justen Mckeon MD - 02/23/2023 6:27 AM CDT Neurosurgery Progress Note Karly Winstno Marques 02/23/23 Hospital Day: 2 Subjective: Patient states pain is improving. No drainage overnight from either incision. Significant Events: Patient is a 67 year old female presenting with c/o wound drainage andd pain. She had a new spinal stim batter placement and connection to paddle 02/16/23. Patient states that incision in her left buttock had some drainage and is very painful. She denies fever/chills. Objective: T: 97.7 ??F (36.5 ??C) [Temp Min: 97.7 ??F (36.5 ??C) Max: 98.6 ??F (37 ??C)] BP: 163/97[BP Min: 107/61 Max: 163/97] MAP: 113[MAP (mmHg) Min: 78 Max: 113] HR: 87[Pulse Min: 79 Max: 91] RR: 20[Resp Min: 18 Max: 20] Sat: 100 %[SpO2 Min: 90 % Max: 100 %] ICP: [No data recorded] EVD: na Input/Output: 02/22 0701 - 02/23 0700 In: 240 [P.O.:240] Out: - PAIGE/Other Drain:na Respiratory: ra PEEP/CPAP: 12 cm H20 Labs: Recent Labs Component Name 02/21/23 1830 WBC 11.6* HGB 13.9 HCT 42.8 PLTCOUNT 329 Recent Labs Component Name 02/21/23 1830 NA 137 POTASSIUM 3.9 CO2 28 BUN 16 CREATININE 0.70 CALCIUM 10.4* GLUCOSE 301* Recent Labs Component Name 02/21/23 1830 02/16/23 1220 02/06/23 1330 INR 1.0 - 2.5* PTT - - 35.4 - = values in this interval not displayed. Imaging: CT: FINDINGS: ?? There is a partially visualized left-sided spinal stimulator device and lead. Mild surrounding fat stranding, likely represent minimal inflammation, but no well-defined fluid collection to suggest clary abscess formation. ?? Minimal anterolisthesis of L5 on S1. The alignment is otherwise maintained. Vertebral bodies are normal in height without evidence of acute fracture. There is diffuse disc bulge at multiple levels. Mild multilevel central canal stenosis is seen. There is mild to advanced facet osteoarthritis at multiple levels. There are varying degrees of neural foraminal stenosis at multiple levels. There are advanced degenerative changes of the SI joints. There is atherosclerotic calcification of the abdominal aorta and its branch vessels. ? IMPRESSION: ?? 1.Postoperative findings of left-sided spinal stimulator device without evidence of rim-enhancing fluid collection to suggest abscess. 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 ?? Diet: DIET REGULAR MEDICATIONS FOR CURRENT ENCOUNTER: ?? SCHEDULED MEDICATIONS: ?? 0.9% NaCl injection 3 mL, Intracatheter, q8h ?? amitriptyline (Elavil) tablet 25 mg, Oral, AT BEDTIME ?? insulin aspart (NovoLOG) pen 0-18 Units, Subcutaneous, TID WC ?? insulin aspart (NovoLOG) pen 0-7 Units, Subcutaneous, AT BEDTIME ?? iopamidol (Isovue 370) 76 % contrast, Intravenous, Contrast - Once ?? iopamidol (Isovue 370) 76 % contrast, Intravenous, Contrast - Once ?? rOPINIRole (Requip) tablet 5 mg, Oral, AT BEDTIME ?? tolterodine (Detrol) tablet 2 mg, Oral, BID ?? vancomycin (Vancocin) 1,500 mg in 500 mL NaCl IVPB Premix, Intravenous, q12h ?? vancomycin (Vancocin) IV dose per pharmacy, Does not apply, DIRECTED ?? CONTINUOUS MEDICATIONS: ?? PRN MEDICATIONS: ?? Or ?? Or ?? Or ?? Or ?? 0.9% NaCl injection 1-10 mL, Intracatheter, PRN ?? dextrose 10 % IV bolus, Intravenous, PRN ?? dextrose 10 % IV bolus, Intravenous, PRN ?? diphenhydrAMINE (Benadryl) capsule 50 mg, Oral, q4h PRN ?? glucagon (Glucagen) injection 1 mg, Subcutaneous, PRN ?? glucose (Diabetic Use) (Dex4 Glucose) oral liquid, Oral, PRN ?? glucose (Diabetic Use) oral gel, Oral, PRN ?? glucose chew tablet 4 tablet, Oral, PRN ?? HYDROcodone-acetaminophen ([place]) 10-325 MG tablet 1 tablet, Oral, q4h PRN ?? HYDROcodone-acetaminophen ([place]) 5-325 MG tablet 1 tablet, Oral, q4h PRN ?? HYDROmorphone (Dilaudid) injection 0.5 mg, Intravenous, q3h PRN ?? hydrOXYzine HCl (Atarax) tablet 10 mg, Oral, q6h PRN ?? methocarbamol (Robaxin) tablet 500 mg, Oral, q6h PRN General: NAD Neuro: AOx4, moves all extremities with good strength Wound: some surrounding erythema, no fluctuance, no drainage observed. Skin edges are well aproximated. Assessment: 67 year old female with concern for wound drainage after spinal stim battery placement. Patient initially with pain in the area of the left buttock incision that has alleviated somewhat. Persistent mild leukocytosis likely related to UTI found on UA.. Urine cultures pending as of 02/23/23. ?? Plan: - AAT - [place] - Continue abx and will deescalate pending cultures - SQH for DVT PPX Justen Mckeon MD 6:28 AM 02/23/23 * Theresa Aranda RN - 02/22/2023 12:25 PM CDT Care Coordination Initial Assessment Anticipated Discharge Date: 02/24/23 Transportation at Discharge: daughter Anticipated level of care at discharge: Home, Home Health - IV and Home Health Care Anticipated level of care provider: None Prior to admission level of care: Home Prior to admit provider: Martha Patient Goals: safe discharge Plans: No discharge needs identified at this time. Consult Case Management if discharge planning needs arise. Comments: 67 year old female with concern for wound drainage after spinal stim battery placement. Plan: Broad spectrum abx, CT lumbar W contrast ESR/CRP. Discharge needs dependent on response to clinical treatment and therapy recommendations. CM will continue to follow. Lives with: Daughter Physical Limitations: None Requires Assistance With: Mobility;Housekeeping;Meal Preparation;Medication Administration;Shopping;Dressing Preferred Pharmacy: [id number] - [address] [place] [address] [address] [place] [address] READMISSION RISK SCORE is 13 at 12:25 PM 02/22/2023. 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 Yes Patient/Family provided with list of resources? Unknown Preferred Provider / High Quality Network List given?: Unknown Reason for provider choice: Unknown Distiller Referral: No Will continue to follow. For any questions or needs please contact: Blind Cleaner Name/Phone number: Theresa Aranda RN [phone] * Christin Salcedo, PharmD - 02/22/2023 11:51 AM CDT ACTIVE CONSULTS TO PHARMACY/DISEASE STATE MONITORING Pharmacy Consult: Vancomycin ASSESSMENT/PLAN Indication: documented SSTi - ulceration/wound of surgical site infection on back (spinal stimulator surgery) with Goal Level: AUC 400-600 ID consulted/following: No Assessment: Day of treatment: 2 End of treatment date: to be determined Current dosing regimen: 1250 mg, Q12 hr Renal assessment: considered stable at this time as patient has Estimated Creatinine Clearance: 98.1 mL/min (by C-G formula based on SCr of 0.7 mg/dL). MRSA positive/other pertinent micro: No Level evaluation: See chart below Recent Labs Component Name 02/22/23 0759 02/22/23 0246 10/31/21 2153 VANCTROUGH 14.6 - 13.6 VANCOPEAK - 25.3 - Using 1st dose pharmacokinetic calculations (used in patients with less predictable kinetic profiles), the previously determined maintenance regimen would result in a calculated AUC = 367 mg-hr/L andis subtherapeutic to goal. Plan Dosing: Will adjust dose to 1500 mg Q12 hr. This regimen calculates to provide estimated AUC of 440 mg-h/L. Monitoring Will order a vancomycin peak level after maintenance dose on 02/24 at 1230 and trough level prior tomaintenance dose on 02/24 at 2000 and adjust regimen if indicated. Continue to monitor patient???s renal function and cultures as needed. Christin Salcedo, PharmD 02/22/2023 11:15 AM [facility] Vancomycin Guideline SUBJECTIVE/OBJECTIVE Karly Marques is a 67 year old female. The primary encounter diagnosis was Acute post-operativepain. Diagnoses of History of wound infection and Cellulitis, wound, post-operative were also pertinent to this visit. Height: 5' 1 (154.9 cm) Wt 124.7 kg (275 lb) Body mass index is 51.96 kg/m??. Recent Labs Component Name 02/21/23 1830 02/17/23 1838 02/06/23 1331 12/26/22 0132 CREATININE 0.70 0.77 0.93 0.62 BUN 16 21 13 12 WBC 11.6* 14.9* 8.9 10.8* @[id number]@ Dialysis Orders (72h ago, onward) None Radiocontrast within 72 hours The 3 most recent administrations since 02/19/2023 are shown below each listed medication. Other Order Route Dose Action Date iopamidol (Isovue 370) 76 % contrast Intravenous 100 mL $ Given - Contrast 02/22/2023 Vancomycin Administrations from JUN (last 72 hours) Date/Time Action Medication Dose Rate 02/22/23 1004 $ New Bag/Syringe vancomycin (Vancocin) 1,250 mg in 250 mL NaCl IVPB Premix 1,250 mg 200 mL/hr 02/21/23 2127 $ New Bag/Syringe vancomycin (Vancocin) 2,500 mg in 550 mL IVPB 2,500 mg 220 mL/hr * Aixa Pride RN - 02/22/2023 10:37 AM CDT Problem: Pain/Discomfort Goal: Patient exhibits [...] restful, refreshing sleep pattern. Outcome: Progressing * Heather Toribio PharmD - 02/21/2023 9:36 PM CDT ACTIVE CONSULTS TO PHARMACY/DISEASE STATE MONITORING Pharmacy Consult: Vancomycin Note: The latest IDSA/SIDP guideline for vancomycin therapeutic monitoring recommend monitoring thearea under the serum concentration vs. time curve for 0- 24 hours (AUC24) as the preferred therapeutic target for suspected/confirmed MRSA infections. The goal AUC 400-600 mg/L/hr has been shown to decrease overall drug exposure minimizing the risk of acute kidney injury without compromising clinical outcomes. Trough guided therapy and serial random level assessment is still appropriate in some patient populations. REF: https://www.idsociety.org/practice-guideline/vancomycin/ ASSESSMENT/PLAN Indication: documented SSTi - surgical site infection on back with Goal Level: AUC 400-600 ID consulted/following: No Assessment Renal assessment: considered stable at this time as patient has Estimated Creatinine Clearance: 98.1 mL/min (by C-G formula based on SCr of 0.7 mg/dL). Historical dosing data that influences current dosing decisions: No History/current positive cultures for MRSA or other pertinent micro: No Plan Regimen: Loading dose: 2500 mg Maintenance dose: 1250 mg, Dosing interval: Q12 hr This regimen calculates to provide estimated AUC of 544 mg-h/L Monitoring Post initial loading dose, will order a vancomycin peak (1st) level on 02/22 at 0200 and trough (2nd) level prior to the start of the maintenance dose on 02/22 at 0830 and adjust regimen if indicated. Continue to monitor patient???s renal function and cultures as needed. Heather Toribio PharmD 02/21/2023 8:59 PM [facility] Vancomycin Guideline SUBJECTIVE/OBJECTIVE Karly Marques is a 67 year old female. Diagnoses of History of wound infection and Cellulitis, wound, post-operative were pertinent to this visit. Height: 5' 1 (154.9 cm) Wt 124.7 kg (275 lb) Body mass index is 51.96 kg/m??. Recent Labs Component Name 02/21/23 1830 02/17/23 1838 02/06/23 1331 12/26/22 0132 CREATININE 0.70 0.77 0.93 0.62 BUN 16 21 13 12 WBC 11.6* 14.9* 8.9 10.8* Dialysis Orders (72h ago, onward) None Radiocontrast within 72 hours The 3 most recent administrations since 02/18/2023 are shown below each listed medication. Other Order Route Dose Action Date iopamidol (Isovue 370) 76 % contrast Intravenous 100 mL $ Given - Contrast 02/18/2023 Vancomycin Administrations from JUN (last 72 hours) None Recent Labs Component Name 10/31/21 2153 VANCTROUGH 13.6 documented in this encounter H&P Notes * Justen Mckeon MD - 02/22/2023 2:23 AM CDT Neurosurgery History and Physical Name: Karly Marques : 1955 Date of Admission:02/21/2023 Date of Consult:02/22/2023 8:26 AM Chief Complaint (CC): Wound concern HISTORY OF PRESENT ILLNESS (HPI): Patient is a 67 year old female presenting with c/o wound drainage andd pain. She had a new spinal stim batter placement and connection to paddle 02/16/23. Patient states that incision in her left buttock had some drainage and is very painful. She denies fever/chills. Past Medical History: Diagnosis Date ??? Breast [...] Breath ??? Piperacillin-Tazobactam In D5w Rash ??? Reslizumab Unknown ??? Skin Adhesives Skin Reactions Current Medications amitriptyline (ELAVIL) 25 MG tablet at bedtime amLODIPine (Norvasc) 5 MG tablet Take 1 (one) tablet by mouth once daily ascorbic acid (Vitamin C) 500 MG tablet Take 1 (one) tablet by mouth 2 times daily exemestane (AROMASIN) 25 MG tablet Take 1 (one) tablet by mouth DAILY HumaLOG KwikPen 100 UNIT/ML pen 22 (twenty two) Units 3 times daily before meals hydroCHLOROthiazide (Microzide) 12.5 MG capsule Take 1 (one) capsule by mouth once daily HYDROcodone-acetaminophen ([place]) 7.5-325 MG tablet Take 1 (one) tablet by mouth every 6 hours as needed for Pain hydrOXYzine HCl (Atarax) 25 MG tablet Take 1 (one) tablet by mouth 2 times daily insulin pen needle (B-D ULTRAFINE III SHORT [...] TAKE 1 TABLET BY MOUTH EVERY NIGHT trospium (Sanctura) 20 MG tablet Take 1 (one) tablet by mouth 2 times daily XARELTO 20 MG tablet Current Facility-Administered Medications Medication ??? 0.9% NaCl injection 3 mL And ??? 0.9% NaCl injection 1-10 mL ??? HYDROmorphone (Dilaudid) injection 0.5 mg ??? iopamidol (Isovue 370) 76 % contrast ??? iopamidol (Isovue 370) 76 % contrast ??? vancomycin (Vancocin) 1,250 mg in 250 mL NaCl IVPB Premix ??? vancomycin (Vancocin) IV dose per pharmacy Social History Tobacco Use ??? Smoking status: Former Packs/day: .5 Types: Cigarettes Quit date: 12/05/1977 Years since quittin.2 ??? Smokeless tobacco: Never Substance Use Topics ??? Alcohol use: No Family History Problem Relation Name Age of Onset ??? Heart Disease Mother ??? Diabetes Mother ??? Cancer Father ??? Hemochromatosis Father ??? Cancer Sister ??? Heart Disease Brother The following problems were present on admission: Cellulitis, wound, post-operative (POA: Unknown) REVIEW OF SYSTEMS Deferred PHYSICAL EXAM BP 107/61 Pulse 79 Temp 98.6 ??F (37 ??C) (Oral) Resp 18 Ht 1.549 m (5' 1 ) Wt 124.7 kg (275 lb) SpO2 99% General: distress due to pain Neuro: AOx4, moves all extremities with good strength, Wound has some surrounding erythema, no fluctuancwe, no drainage observed. Skin edges are well aproximated. LABORATORY Recent Labs Component Name 02/21/231829 WBC 11.6* HGB 13.9 HCT 42.8 PLTCOUNT 329 Recent Labs Component Name 02/21/23 1830 02/17/23 1838 02/06/23 1331 NA 137 - - POTASSIUM 3.9 - 3.7 CHLORIDE - - 103 CO2 28 - 25 BUN 16 - 13 CREATININE 0.70 - 0.93 GLUCOSE 301* - 258* - = values in this interval not displayed. Recent Labs Component Name 02/21/231829 INR [address]:pending Assessment: 67 year old female with concern for wound drainage after spinal stim batter y placement. Plan: Admit to Dr. Gregg service Braod spectrum abx CT lumbar W contrast ESR/CRP AAT [place] Case discussed with Dr. Marysol Mckeon MD 02/22/2023 8:26 AM documented in this encounter Consult Notes * Benjamin Huitron MD - 02/23/2023 12:13 PM CDTAssociated Order(s): IP CONSULT TO INFECTIOUS DISEASES [facility] Infectious Diseases Consultation Patient Name: Karly Marques 1955 Room: [facility] Date of Admission: 02/21/2023 Date of Service: 02/23/2023 Primary Care Physician: Justen Gale MD Attending Physician: Maxi Gregg MD Reason for Infectious Disease Consultation Suspected UTI History of Present Illness HPI: aKrly Marques is a 67 year old white female with a past medical history significant for past medical hx significant for DM2, Breast CA, Chronic back pain on spinal pain stimulator, LUL, depression, peripheral neuropathy, and PE. Patient presented to [facility] on 02/21/2023 with discharge from her incision site were nerve stimulatorbattery was replaced on 02/16/2023. Patient states that she woke up and found that it was oozing and her bed was a bit soaked. She is also stating that she is tender to palpation on her left incision. She denies any fevers or chills. Also denies any dysuria, hematuria, foul smelling urine or suprapubic tenderness. Medical History Past Medical History: Diagnosis Date ??? Breast cancer (CMS/HCC) ??? Chest pain ??? DVT (deep venous thrombosis) (CMS/HCC) ??? GERD (gastroesophageal reflux disease) ??? LUL (obstructive sleep apnea) w cpap ??? Other pulmonary embolism without acute cor pulmonale (CMS/HCC) ??? rls ??? Type 2 diabetes mellitus without complications (CMS/HCC) Surgical History Past Surgical History: Procedure Laterality Date ??? [...] LUMBAR REGION WELL CONNECTION WITH HER PADDLE ANDWIRE SYSTEM ??? Thoracic Spine Laminectomy Right 09/16/2021 Right; THORACIC EIGHT- THORACIC NINE LAMINECTOMY FOR PLACEMENT OF A DORSAL COLUMN STIMULATION SYSTAM AND PLACEMENT OF THE BATTERY IN THE LOWER LUMBAR REGION Social History Smoking: Smoked on her 20s Alcohol: denies history Illicit drugs/IV drug use: denies history Marital status: Children: does have children Living situation: Lives with spouse Pets: has dogs and cats Occupation: [employer] Education: [employer] Travel history: None Sick contacts: None Incarceration history: Never history: None STD history: None Sexually active: Unkwon HIV status: Unkown Hepatitis status: HepC negative in 2022 TB exposure: None Prosthetic/Implant history: Has nerve stimulator Immunizations: Immunization History Administered Date(s) Administered ??? COVID MABEL PRIMARY 18+YR 06/29/2020 ??? Covid Pfizer primary monovalent 12+ yr 0.3mL Purple cap 05/04/2021 ??? FLU VACCINE QUAD IIV4 SPLIT 0.25 ML IM 02/06/2017 ??? FLU VACCINE QUAD IIV4 SPLIT IM 02/11/2015 ??? FLU VACCINE QUAD IIV4 SPLIT PF IM 02/14/2017, 01/24/2018, 02/25/2019, 01/18/2020, 05/04/2021 ??? FLU VACCINE TRI IIV3 SPLIT IM (AFLURIA) 02/03/2020 ??? FLU VACCINE TRI IIV3 SPLIT IM (FLUVIRIN) 05/07/2013, 03/07/2014, 01/23/2016 ??? TDAP, HISTORIC VACCINE 02/23/2016 Family History Family History Problem Relation Name Age of Onset ??? Heart Disease Mother ??? Diabetes Mother ??? Cancer Father ??? Hemochromatosis Father ??? Cancer Sister ??? Heart Disease Brother I have confirmed the past medical, surgical, family and social history. Review of Systems Review of Systems Constitutional: Negative for chills and fever. HENT: Negative. Eyes: Negative. Respiratory: Negative. Cardiovascular: Negative. Gastrointestinal: Negative. Genitourinary: Negative. Musculoskeletal: Negative. Skin: Positive for itching and rash. Neurological: Negative. Endo/Heme/Allergies: Negative. Psychiatric/Behavioral: Negative. Allergies Allergies Allergen Reactions ??? Latex Rash [...] Breath ??? Piperacillin-Tazobactam In D5w Rash ??? Reslizumab Unknown ??? Skin Adhesives Skin Reactions Antimicrobial History Current Antibiotics Vancomycin Home Medications Prior to Admission medications Medication Sig Start Date End Date Taking? Authorizing Provider amitriptyline (ELAVIL) 25 MG tablet at bedtime Yes Tyler Smith MD amLODIPine (Norvasc) 5 MG tablet Take 1 (one) tablet by mouth once daily 05/02/22 ProviderTyler MD ascorbic acid (Vitamin C) 500 MG tablet Take 1 (one) tablet by mouth 2 times daily Patient not taking: Reported on 02/22/2023 04/27/22 Opal Orellana APRN-CNP exemestane (AROMASIN) 25 MG tablet Take 1 (one) tablet by mouth DAILY 04/20/17 Yes Tyler Smith MD HumaLOG KwikPen 100 UNIT/ML pen 22 (twenty two) Units 3 times daily before meals 02/25/22 Yes Tyler Smith MD hydroCHLOROthiazide (Microzide) 12.5 MG capsule Take 1 (one) capsule by mouth once daily 07/17/22 Tyler Smith MD HYDROcodone-acetaminophen ([place]) 7.5-325 MG tablet Take 1 (one) tablet by mouth every 6 hours as needed for Pain Yes Tyler Smith MD hydrOXYzine HCl (Atarax) 25 MG tablet Take 1 (one) tablet by mouth 2 times daily Patient not taking: Reported on 02/13/2023 06/08/22 Opal Orellana APRN-CNP insulin pen needle (B-D ULTRAFINE III SHORT PEN) 31G X 8 MM needle 4 times daily 11/16/21 Mckenzie Johnston MD Lancets (ONETOUCH DELICA PLUS 33G EXTRA FINE LANCET) USE FOUR TIMES DAILY 03/10/21 Tyler Smith MD Lantus SoloStar pen ADMINISTER 50 UNITS UNDER THE SKIN EVERY MORNING 02/25/22 Yes Tyler Smith MD methenamine hippurate (Hiprex) 1 GM tablet TAKE 1 TABLET BY MOUTH TWICE DAILY 12/14/22 Yes Opal Orellana APRN-CNP methocarbamol (Robaxin) 500 MG tablet Take 1 (one) tablet by mouth every 6 hours as needed for Muscle Spasms 02/16/23 Yes Melly Banks APRN-CNP naloxone HCl (NARCAN) 4 MG/0.1ML nasal spray as needed 05/13/21 Tyler Smith MD ONETOUCH ULTRA test strip 4 times daily 02/01/21 Tyler Smith MD oxyBUTYnin CR 24hr (Ditropan XL) 15 MG tablet Take 1 (one) tablet by mouth once daily 08/15/22 Yes Opal Orellana APRN-CNP rOPINIRole (REQUIP) 5 MG tablet TAKE 1 TABLET BY MOUTH EVERY NIGHT 06/09/21 Yes Tyler Smith MD trospium (Sanctura) 20 MG tablet Take 1 (one) tablet by mouth 2 times daily 06/08/22 Opal Orellana APRN-CNP XARELTO 20 MG tablet 11/08/21 Yes Tyler Smith MD Inpatient Medications ??? 0.9% NaCl 3 mL Intracatheter q8h ??? amitriptyline 25 mg Oral AT BEDTIME ??? insulin aspart 0-18 Units Subcutaneous TID WC ??? insulin aspart 0-7 Units Subcutaneous AT BEDTIME ??? iopamidol Intravenous Contrast - Once ??? iopamidol Intravenous Contrast - Once ??? rOPINIRole 5 mg Oral AT BEDTIME ??? tolterodine 2 mg Oral BID ??? vancomycin 1,500 mg Intravenous q12h ??? vancomycin (VANCOCIN) IV dose per pharmacy Does not apply DIRECTED Objective Vitals BP 138/72 Pulse 71 Temp 98 ??F (36.7 ??C) (Oral) Resp 20 Ht 1.549 m (5' 1 ) Wt 124.7 kg (275 lb) SpO2 100% Temp (24hrs), Av.1 ??F (30.6 ??C), Min:32 ??F (0 ??C), Max:98.5 ??F (36.9 ??C) Physical Exam Physical Exam Constitutional: Appearance: She is obese. HENT: Head: Normocephalic. Nose: Nose normal. Mouth/Throat: Mouth: Mucous membranes are moist. Eyes: Pupils: Pupils are equal, round, and reactive to light. Cardiovascular: Rate and Rhythm: Normal rate and regular rhythm. Pulmonary: Effort: Pulmonary effort is normal. Breath sounds: Normal breath sounds. Abdominal: General: Bowel sounds are normal. Musculoskeletal: General: No swelling. Cervical back: Normal range of motion. Skin: Capillary Refill: Capillary refill takes less than 2 seconds. Comments: Maculopapular rash that is well circumscribed to incision area. Neurological: Mental Status: She is alert. Lines: PIV Lab Review CBC: Recent Labs Component Name 02/21/23182902/17/23183702/06/23 1331 WBC 11.6* 14.9* 8.9 RBC 4.78 4.74 5.05 HGB 13.9 13.5 14.6 HCT 42.8 42.8 45.5 MCV 89.5 90.3 90.1 BMP: Recent Labs Component Name 02/21/23182902/17/23183702/06/23 1331 12/26/22 0132 12/25/22 0356 12/24/22 0135 NA 137 137 - 136 - 137 CL 101 100 - 104 - 103 CO2 28 24 25 26 - 26 BUN 16 21 13 12 - 14 CREATININE 0.70 0.77 0.93 0.62 - 0.68 ALB 3.6 3.6 - - - 2.9* PROT 8.8* 8.9* - - - 7.1 - = values in this interval not displayed. estimated creatinine clearance is 98.1 mL/min (by C-G formula based on SCr of 0.7 mg/dL). LFTs: Recent Labs Component Name 02/21/23182902/17/23183712/24/22 0135 12/02/21 1231 09/23/21 2045 04/20/17 0404 ALKPHOS 84 76 69 84 - 77 ALT 19 18 17 15 - 17 AST 18 19 13 17 - 17 LIPASE - - - 19 - 34 - = values in this interval not displayed. Coagulation: Recent Labs Component Name 02/21/23 1830 02/17/23 1838 02/16/23 1220 02/06/23 1330 02/06/23 1330 11/13/21 0107 11/12/21 1823 PT 13.2 12.7 15.0* - 25.7* 15.2* - INR 1.0 1.0 1.2* - 2.5* 1.2 - PTT - - - - 35.4 77.2* 70.9* - = values in this interval not displayed. Microbiology, Imaging and other diagnostic tests MICROBIOLOGY: Microbiology Results (Displays last 21 days for this encounter ONLY) Procedure Component Value - Date/Time CULTURE URINE [[id number]] Collected: 02/22/23 024 Lab Status: Final result Specimen: Urine Clean Catch Updated: 02/23/23 1217 Culture Urine <10,000 CFU/mL urogenital charla CULTURE BLOOD [[id number]] (Normal) Collected: 02/21/232034 Lab Status: Preliminary result Specimen: Blood Peripheral Updated: 02/22/232300 Culture No growth 24 hours CULTURE BLOOD [[id number]] (Normal) Collected: 02/21/232019 Lab Status: Preliminary result Specimen: Blood Peripheral Updated: 02/22/232300 Culture No growth 24 hours HISTOPATHOLOGY: None at this admission IMAGING & PROCEDURES: I have independently reviewed all pertinent images. Reports in chart. Assessment and Recommendations Renal Function estimated creatinine clearance is 98.1 mL/min (by C-G formula based on SCr of 0.7 mg/dL). Plan/Recommendations #Suspected Fungal skin infection #Suspected contact dermitis Well circumscribed maculopapular rash in bilateral incision sites are consistent with fungal skin infection or contact dermatitis. - Hydrocortisone cream to incicion sites bilaterally to area that has rash\ - Nystatin cream to insicion sites bilaterally - Patient is tender in this area but at the moment we are not concerned for stimulator battery siteinfection given that there is no actually surrounding skin erythema consistet with cellulitis. Siteis not hot to the touch and has no induration or fluctuance. - Continue to follow Blood cultures - Continue Vancomycin until Blood cultures have 72hours of no organism growth. - Please obtain HIV screening with 4th generation test, if not done previously Check CBC with auto diff and CMP weekly while on IV antibiotics #Asymptomatic Bacteriuria #Asymptomatic Pyuria - Will not treat as UTI due to lack of symptoms Patient seen, examined, and case/plan were discussed with my attending physician, Dr. Guevara. Benjamin Huitron MD [facility] Associated attestation - Kavon Guevara MD - 02/23/2023 2:20 PM CDT Infectious Disease Attending Note: Patient seen and examined with Resident, Dr. Huitron.Please see his note for further details. I confirm and agree with his history, exam, assessment andplan. Karly Marques is a 67 year old female was admitted 02/21/23 with concerns related to chills, drainage and pain and itching on the buttocks, mainly left side around the recent incision site w here a nerve stimulator battery was inserted on 05/19/22. There is another incision on the right buttock related to the procedure. Stimulator wires are there since 10/2021. Patient had infection of battery pack in 2021 with E coli in 2021. Patient reports allergy to tape in the past. On PE, there isan oval area of redness/erythema without induration that corresponds to the size of a bandage that was overlying the surgical incisions - both right and left incisions, no drainage now, some tenderness to palpation of the left buttock near the incision site. She also has maceration of skin and possible monilial skin rash under her large abdominal wall pannus, intertrigenously. Also, patient denies and symptoms and appears to have asymptomatic bacteriuria, too. The vancomycin that was already started can be continued until blood cultures are 72 hours old and no growth at that point. Assessment: 1. Possible monilial and contact dermatitis rash at incision sites, infection less likely at this point. Will monitor. Recommend: Would start Nystatin powder to the intertrigenous area on the abdominal wall, Nystatin cream to thebuttocks incisions and possibly 1% hydrocortisone cream as well, since the red rash there may be inpart contact dermatitis and/or monilial skin rash. documented in this encounter ED Notes * Laury Swartz, NURIS - 02/22/2023 4:31 AM CDT Report given to Saundra LAWLER. All questions answered at this time. * Sara Villanueva RN - 02/21/2023 8:04 PM CDT RN at bedside with to collect swab, was unable to collect a sample d/t little drainage on bandage. Photo added to EPIC. CSN made aware of pt need of blood cultures. * Ruth Fuller RN - 02/21/2023 7:35 PM CDT Bed: [facility] Expected date: Expected time: Means of arrival: Comments: Shelli * Berenice Hawkins MD - 02/21/2023 7:02 PM CDT ED Attending Note Interval History: Karly Marques with pmhx of DVT/PE (on Xarelto), GERD, DM and LUL is a 67 year old female is presenting to the ED c/o wound infection on left buttock. Patient noted significant amount of drainage from wound last night. Patient notes increased pain to incision site since discharge. Patient notes she has been taking [place] and tylenol for pain management. Patient denies abdominal pain. She endorses nausea. Patient reports experiencing these symptoms one year ago when her incision site became infected and the patient subsequently became septic six week post - operation. There are no other modifying factors or complaints at this time. Per EMR review, patient had placement of new battery of spinal stimulation in the left lumbar region and connection with the wires previously coiled in the right lumbar region on 02/16/23 (five days ago). Patient has a history of refractory axial low back pain who??was submitted to a T8-T9 laminectomy for placement of a dorsal column stimulation system and placement of the battery in the right lumbar region by Dr. Gregg on 09/16/2021. The patient progressed with an infection at the site of thebattery and was submitted to removal of the battery in the right lumbar region on 10/30/2021. Past Medical History: Diagnosis Date ??? Breast [...] Cigarettes Quit date: 12/05/1977 Years since quittin.2 ??? Smokeless tobacco: Never Vaping Use ??? Vaping Use: Never used Substance and Sexual Activity ??? Alcohol use: No ??? Drug use: No ??? Sexual activity: Not on file Other Topics Concern ??? Not on file Social History Narrative ??? Not on file Social Determinants of Health Financial Resource Strain: Low Risk (12/23/2022) Overall Financial Resource Strain (CARDIA) ??? Difficulty of Paying Living Expenses: Not hard at all Food Insecurity: No Food Insecurity (12/23/2022) Hunger Vital Sign ??? Worried About Running Out of Food in the Last Year: Never true ??? Ran Out of Food in the Last Year: Never true Transportation Needs: No Transportation Needs (12/23/2022) PRAPARE - Transportation ??? Lack of Transportation (Medical): No ??? Lack of Transportation (Non-Medical): No Stress: No Stress Concern Present (12/23/2022) [facility] Occupational Health - Occupational Stress Questionnaire ??? Feeling of Stress : Not at all Housing Stability: Low Risk (12/23/2022) Housing Stability Vital Sign ??? Unable to Pay for Housing in the Last Year: No ??? Number of Places Lived in the Last Year: 1 ??? Unstable Housing in the Last Year: No Review of Systems: (+) positive All systems negative except as marked. Constitutional: Negative for fever HENT: Negative for sore throat. Eyes: Negative for visual changes Respiratory: Negative for SOB, cough Cardiovascular: Negative for chest pain, palpitations Gastrointestinal: (+) nausea Negative abdominal pain, vomiting, diarrhea Genitourinary: Negative for difficulty urinating, hematuria, dysuria Musculoskeletal: Negative for neck pain, back pain, myalgia Skin: Negative for rash, itching Neurological: Negative for CAZARES, dizziness, weakness, numbness, tingling Psychiatric: Negative for SI, hallucinations, anxiety Vitals: 02/21/23 1720 02/21/23 1754 02/21/23 1849 BP: (!) 180/88 151/99 Pulse: 105 Resp: 16 26 Temp: 97 ??F (36.1 ??C) SpO2: 100% Weight: 124.7 kg (275 lb) Height: 1.549 m (5' 1 ) Exam: Constitutional: well developed, morbidly obese, appears uncomfortable HENT: normocephalic, atraumatic, moist oral mucosa, conjunctiva normal Eyes: PERRL, EOMi Neck: supple, normal ROM Cardiovascular: regular rate and rhythm, no murmur Respiratory: clear to auscultation bilaterally, no wheezes, no respiratory distress Abdomen: soft, non-tender, non-distended Genitourinary: deferred Musculoskeletal: no edema or deformities Skin: Left buttock wound with significant erythema, warmth and firmness. Sutures are intact, no active discharge at this time, we were unable to express any fluid from wound, wound extremely tender to touch Neurological: awake, alert&Ox4, moving all extremities, no focal motor/sensation deficits. Psychiatric: mood and affect normal Medical Decision Makin. Wound Infection on left buttock Assessment and Plan: Patient has apparent wound infection of left buttock. Will cover with vancomycin and ertapenem. Patient has tolerated ertapenem in the past. Plan to consult NSGY and patient may require opening of wound and debridement. Results: Labs Reviewed CBC W AUTO DIFFERENTIAL - Abnormal; Notable for the following components: Result Value WBC 11.6 (*) Neutrophils Absolute 7.60 (*) Eosinophils Absolute 0.50 (*) All other components within normal limits COMPREHENSIVE METABOLIC PANEL - Abnormal; Notable for the following components: Glucose 301 (*) Calcium 10.4 (*) Protein Total 8.8 (*) Osmolality Calculated 296 (*) Albumin/Globulin Ratio 0.7 (*) All other components within normal limits HEPATITIS C AB SCREEN RFLX NAAT QUANT - Normal LACTIC ACID BLOOD REFLEX TO REPEAT - Normal PT-INR [facility] - Normal TROPONIN-I HIGH SENSITIVE BASELINE + 1HR - Normal TROPONIN-I HIGH SENSITIVE REFLEX 1HOUR - Normal CULTURE WOUND+GRAM STAIN CULTURE BLOOD CULTURE BLOOD URINALYSIS REFLEX MICROSCOPIC REFLEX CULTURE CT ABDOMEN PELVIS W CONTRAST (Results Pending) ED course: The patient's Oxygen Saturation Monitor was interpreted by me. The reading was 98%. The patient wason RA at the time of the reading. This is interpreted as no hypoxia. 7:52 PM: Patient seen and evaluated at this time. History and physical exam obtained. Patient received morphine injection 4 mg at 6:58 PM 7:57 PM: Trop negative. Hep C negative. PT 13.2. Leukocytosis. No anemia. H&H normal. Normal BUN 16. Normal creatinine 0.70. Pending repeat trop. 8:06 PM: NSGY paged. 8:07 PM: Discussed with NSGY nurse, NSGY is busy at this time due to being in the OR. They will call back. 8:15 PM: Patient given dilaudid injection 1 mg for pain management. 9:00 PM: Repeat trop negative. 9:29 PM: NSGY called. NSGY still in the OR at this time. PUNEET to Dr. Chambers. The patient is pending NSGY consult. Consult Yes Procedure done at this time No Ultrasound done at this time No CRITICAL CARE IN THE ED No Orders and Medicine administered during this encounter: Orders Placed This Encounter ??? CULTURE WOUND+GRAM STAIN ??? CULTURE BLOOD ??? CULTURE BLOOD ??? CT ABDOMEN PELVIS W CONTRAST ??? HEPATITIS C AB SCREEN RFLX NAAT QUANT ??? CBC W AUTO DIFFERENTIAL ??? COMPREHENSIVE METABOLIC PANEL ??? LACTIC ACID BLOOD REFLEX TO REPEAT ??? PT-INR [facility] ??? TROPONIN-I HIGH SENSITIVE BASELINE + 1HR ??? URINALYSIS REFLEX MICROSCOPIC REFLEX CULTURE ??? TROPONIN-I HIGH SENSITIVE REFLEX 1HOUR ??? VANCOMYCIN LEVEL PEAK ??? VANCOMYCIN LEVEL TROUGH ??? IP CONSULT TO NEUROSURGERY ??? OXYGEN ??? AND Linked Order Group ??? 0.9% NaCl injection 3 mL ??? 0.9% NaCl injection 1-10 mL ??? 0.9% NaCl IV bolus ??? morphine injection 4 mg ??? DISCONTD: morphine injection 4 mg ??? HYDROmorphone (Dilaudid) injection 1 mg ??? DISCONTD: vancomycin (Vancocin) 2,000 mg in 500 mL NaCl IVPB Premix ??? vancomycin (Vancocin) IV dose per pharmacy ??? ertapenem (INVanz) 1,000 mg in 0.9% NaCl IV 50 mL IVPB ??? vancomycin (Vancocin) 2,500 mg in 550 mL IVPB ??? vancomycin (Vancocin) 1,250 mg in 250 mL NaCl IVPB Premix ??? HYDROmorphone (Dilaudid) injection 0.5 mg Medications 0.9% NaCl injection 3 mL (has no administration in time range) And 0.9% NaCl injection 1-10 mL (has no administration in time range) vancomycin (Vancocin) IV dose per pharmacy (has no administration in time range) vancomycin (Vancocin) 2,500 mg in 550 mL IVPB (2,500 mg Intravenous $ New Bag/Syringe 02/21/232126) vancomycin (Vancocin) 1,250 mg in 250 mL NaCl IVPB Premix (has no administration in time range) HYDROmorphone (Dilaudid) injection 0.5 mg (has no administration in time range) 0.9% NaCl IV bolus (0 mL Intravenous Stopped 02/21/232053) morphine injection 4 mg (4 mg Intravenous $ Given 02/21/23 185) HYDROmorphone (Dilaudid) injection 1 mg (1 mg Intravenous $ Given 02/21/232014) ertapenem (INVanz) 1,000 mg in 0.9% NaCl IV 50 mL IVPB (1,000 mg Intravenous $ New Bag/Syringe 02/21/23 2100) Clinical Impression: 1. History of wound infection 2. Cellulitis, wound, post-operative Disposition: Pending - PUNEET Dr. Chambers By signing my name below, I, Angie Bowen, attest that this documentation has been prepared under the direction and in the presence of Dr. Hwakins. Signed: Kehinde Kimble. The scribe's documentation has been prepared under my direction and personally reviewed by me, Berenice Hawkins MD, in its entirety . I confirm that the note above accurately reflects all work, treatment , procedures and Medical Decision making performed by me. * Julissa Yao RN - 02/21/2023 5:50 PM CDT Pt here for wound check. Pt had back stimulator placed . Pt has 2 incisions bilat lower back. Pt says she woke up last night with a large amount of drainage on her sheets. Old dressings intact from original surgery with large amount old drainage. Incisions beneath dressing beefy red around incisions and tender. +chills, +nausea, +poor appetite. Pt rates pain a 6 and increases to a 9 with movement. Past Medical History: Diagnosis Date ??? Breast [...] THE BATTERY IN THE LOWER LUMBAR REGION documented in this encounter Plan of Treatment Not on file documented as of this encounter Procedures Procedure Name Priority Date/Time Associated Diagnosis Comments GLUCOSE - POINT OF CARE Routine 02/26/2023 11:50 AM TECHNICAL BUSINESS ANALYST GLUCOSE - POINT OF CARE Routine 02/26/2023 9:31 AM TECHNICAL BUSINESS ANALYST GLUCOSE - POINT OF CARE Routine 02/25/2023 7:24 PM CDT GLUCOSE - POINT OF CARE Routine 02/25/2023 5:17 PM CDT GLUCOSE - POINT OF CARE Routine 02/25/2023 11:35 AM CDT GLUCOSE - POINT OF CARE Routine 02/25/2023 9:27 AM CDT GLUCOSE - POINT OF CARE Routine 02/24/2023 8:55 PM CDT GLUCOSE - POINT OF CARE Routine 02/24/2023 4:43 PM CDT GLUCOSE - POINT OF CARE Routine 02/24/2023 11:57 AM CDT OT EVAL AND TREAT Routine 02/24/2023 9:2 0 AM CDT PT EVAL AND TREAT Routine 02/24/2023 9:2 0 AM CDT GLUCOSE - POINT OF CARE Routine 02/24/2023 7:38 AM CDT CBC W/O DIFFERENTIAL AM Draw 02/24/2023 2:33 AM CDT RENAL FUNCTION PANEL AM Draw 02/24/2023 2:33 AM CDT GLUCOSE - POINT OF CARE Routine 02/23/2023 7:34 PM CDT GLUCOSE - POINT OF CARE Routine 02/23/2023 4:05 PM CDT CARDIAC EKG ORDER 02/23/2023 2:1 3 PM CDT GLUCOSE - POINT OF CARE Routine 02/23/2023 11:59 AM CDT GLUCOSE - POINT OF CARE Routine 02/23/2023 8:08 AM CDT GLUCOSE - POINT OF CARE Routine 02/23/2023 6:08 AM CDT GLUCOSE - POINT OF CARE Routine 02/22/2023 7:24 PM CDT GLUCOSE - POINT OF CARE Routine 02/22/2023 4:46 PM CDT C-REACTIVE PROTEIN Routine 02/22/2023 3: 11 PM CDT ERYTHROCYTE SEDIMENTATION RATE Routine 02/22/2023 3:11 PM CDT GLUCOSE - POINT OF CARE Routine 02/22/2023 11:[address] LUMBAR SPINE W CONTRAST STAT 02/22/2023 8:40 AM CDT Acute post-operative pain VANCOMYCIN LEVEL TROUGH Timed 02/22/2023 7:59 AM CDT VANCOMYCIN LEVEL PEAK Timed 02/22/2023 2:46 AM CDT URINE MICROSCOPIC ONLY REFLEX TO CULTURE STAT 02/22/2023 2:41 AM CDT URINALYSIS REFLEX MICROSCOPIC REFLEX CULTURE STAT 02/22/2023 2:41 AM CDT CULTURE URINE STAT 02/22/2023 2:[address] ABDOMEN PELVIS W CONTRAST STAT 02/22/2023 12:50 AM CDT Cellulitis, wound, post-operative CULTURE BLOOD STAT 02/21/2023 8:35 PM CDT CULTURE BLOOD STAT 02/21/2023 8:20 PM CDT TROPONIN-I HIGH SENSITIVE REFLEX 1HOUR Timed 02/21/2023 7:55 PM CDT EKG 12-LEAD STAT 02/21/2023 6:42 PM CDT History of wound infection PT-INR [facility] STAT 02/21/2023 6:30 PM CDT LACTIC ACID BLOOD REFLEX TO REPEAT STAT 02/21/2023 6:30 PM CDT HEPATITIS C AB SCREEN RFLX NAAT QUANT STAT 02/21/2023 6:30 PM CDT TROPONIN-I HIGH SENSITIVE BASELINE + 1HR STAT 02/21/2023 6:30 PM CDT CBC W AUTO DIFFERENTIAL STAT 02/21/2023 6:30 PM CDT COMPREHENSIVE METABOLIC PANEL STAT 02/21/2023 6:30 PM CDT documented in this encounter Results * (ABNORMAL) GLUCOSE - POINT OF CARE (02/26/2023 11:50 AM TECHNICAL BUSINESS ANALYST) [facility] Glucose WB/POC 247(H) 70 - 115 mg/dL 02/26/2023 12:00 PM TECHNICAL BUSINESS ANALYST [facility] Specimen Type Cap Fingerstick 2022 12:00 PM TECHNICAL BUSINESS ANALYST [facility] Blood BLOOD SPECIMEN / Unknown 02/26/2023 11:50 AM TECHNICAL BUSINESS ANALYST 02/26/2023 12:00 PM TECHNICAL BUSINESS ANALYST Maxi Gregg MD LAB - POINT OF ARE ORDERABLES [facility] [address] [place] [address], [place] [phone] * (ABNORMAL) GLUCOSE - POINT OF CARE (02/26/2023 9:31 AM TECHNICAL BUSINESS ANALYST) Glucose WB/POC 175(H) 70 - 115 mg/dL 02/26/2023 9:39 AM TECHNICAL BUSINESS ANALYST [facility] Specimen Type Arterial 02/26/2023 9:39 AM TECHNICAL BUSINESS ANALYST [facility] Blood BLOOD SPECIMEN / Unknown 02/26/2023 9:31 AM TECHNICAL BUSINESS ANALYST 02/26/2023 9:39 AM TECHNICAL BUSINESS ANALYST Maxi Gregg MD LAB - POINT OF ARE ORDERABLES [address] [address], [place] [phone] * (ABNORMAL) GLUCOSE - POINT OF CARE (02/25/2023 7:24 PM CDT) Glucose WB/POC 308(H) 70 - 115 mg/dL 02/25/2023 7:39 PM CDT [facility] Specimen Type Cap Fingerstick 2022 7:39 PM CDT [facility] Blood BLOOD SPECIMEN / Unknown 02/25/2023 7:24 PM CDT 02/25/2023 7:39 PM CDT Maxi Gregg MD LAB - POINT [facility] ARE ORDERABLES [address] [address], [place] [phone] * (ABNORMAL) GLUCOSE - POINT OF CARE (02/25/2023 5:17 PM CDT) Glucose WB/POC 280(H) 70 - 115 mg/dL 02/25/2023 5:22 PM CDT [facility] Specimen Type Cap Fingerstick 2022 5:22 PM CDT [facility] Blood BLOOD SPECIMEN / Unknown 02/25/2023 5:17 PM CDT 02/25/2023 5:22 PM CDT Maxi Gregg MD LAB - POINT OF ARE ORDERABLES [address] [address], [place] [phone] * (ABNORMAL) GLUCOSE - POINT OF CARE (02/25/2023 11:35 AM CDT) Glucose WB/POC 279(H) 70 - 115 mg/dL 02/25/2023 11:49 AM CDT [facility] Specimen Type Arterial 02/25/2023 11:49 AM CDT [facility] Blood BLOOD SPECIMEN / Unknown 02/25/2023 11:35 AM CDT 02/25/2023 11:49 AM CDT Maxi Gregg MD LAB - POINT OF ARE ORDERABLES [address] [address], [place] [phone] * (ABNORMAL) GLUCOSE - POINT OF CARE (02/25/2023 9:27 AM CDT) Glucose WB/POC 188(H) 70 - 115 mg/dL 02/25/2023 9:33 AM CDT [facility] Specimen Type Cap Fingerstick 2022 9:33 AM CDT [facility] Blood BLOOD SPECIMEN / Unknown 02/25/2023 9:27 AM CDT 02/25/2023 9:33 AM CDT Maxi Gregg MD LAB - POINT [facility] ARE ORDERABLES [address] [address], [place] [phone] * (ABNORMAL) GLUCOSE - POINT OF CARE (02/24/2023 8:55 PM CDT) Glucose WB/POC 293(H) 70 - 115 mg/dL 02/24/2023 9:00 PM CDT [facility] Specimen Type Cap Fingerstick 2022 9:00 PM CDT [facility] Blood BLOOD SPECIMEN / Unknown 02/24/2023 8:55 PM CDT 02/24/2023 9:00 PM CDT Maxi Gregg MD LAB - POINT [facility] ARE ORDERABLES Performing Organization Address City/[facility]/ZIP Co de Phone Number [address] [address], [place] [phone] * (ABNORMAL) GLUCOSE - POINT OF CARE (02/24/2023 4:43 PM CDT) Glucose WB/POC 241(H) 70 - 115 mg/dL 02/24/2023 4:47 PM CDT [facility] Specimen Type Arterial 02/24/2023 4:47 PM CDT [facility] Blood BLOOD SPECIMEN / Unknown 02/24/2023 4:43 PM CDT 02/24/2023 4:47 PM CDT Maxi Gregg MD LAB - POINT [facility] ARE ORDERABLES [address] [address], [place] [phone] * (ABNORMAL) GLUCOSE - POINT OF CARE (02/24/2023 11:57 AM CDT) Glucose WB/POC 222(H) 70 - 115 mg/dL 02/24/2023 12:02 PM CDT [facility] Specimen Type Arterial 02/24/2023 12:02 PM CDT [facility] Blood BLOOD SPECIMEN / Unknown 02/24/2023 11:57 AM CDT 02/24/2023 12:02 PM CDT Maxi Gregg MD LAB - POINT OF ARE ORDERABLES [address] [address], [facility] [phone] * (ABNORMAL) GLUCOSE - POINT OF CARE (02/24/2023 7:38 AM CDT) Glucose WB/POC 193(H) 70 - 115 mg/dL 02/24/2023 7:55 AM T [facility] Specimen Type Arterial 02/24/2023 7:55 AM CDT [facility] Blood BLOOD SPECIMEN / Unknown 02/24/2023 7:38 AM CDT 02/24/2023 7:55 AM CDT Maxi Gregg MD LAB - POINT OF C ARE ORDERABLES [address] [address], [facility] [phone] * (ABNORMAL) RENAL FUNCTION PANEL (02/24/2023 2:33 AM CDT) BUN 11 7 - 26 mg/dL 02/24/2023 4:05 AM [facility] Creatinine 0.63 0.56 - 0.96 mg/dL 02/24/2023 4:05 AM [facility] Sodium 138 136 - 145 mmol/L 02/24/2023 4:05 AM [facility] Potassium 4.0 3.5 - 4.5 mmol/L 02/24/2023 4:05 AM [facility] Chloride 106 98 - 107 mmol/L 02/24/2023 4:05 AM [facility] CO2 26 22 - 29 mmol/L 02/24/2023 4:05 AM [facility] Glucose 213(H) 70 - 115 mg/dL 02/24/2023 4:05 AM [facility] Albumin 2.8(L) 3.4 - 5.0 g/dL 02/24/2023 4:05 AM [facility] Calcium 8.7 8.4 - 10.2 mg/dL 02/24/2023 4:05 AM [facility] Phosphorus 2.5(L) 2.9 - 5.1 mg/dL 02/24/2023 4:05 AM [facility] Anion Gap 6 6 - 16 02/24/2023 4:05 AM [facility] BUN/Creatinine Ratio 17 7 - 23 02/24/2023 4:05 AM [facility] Osmolality Calculated 292 275 - 295 mOsm/kg 02/24/2023 4:05 AM [facility] eGFR by CKD-EPI >90 >=90 mL/min/1.7 3 m2 02/24/2023 4:05 AM [facility] Blood BLOOD SPECIMEN / Unknown Lab Venipuncture / Unknown 02/24/2023 2:33 AM CDT 02/24/2023 3:34 AM T Rachel Campbell APRN-RN HEMODIALYSIS CHARGE LAB - CHEMISTRY ORDE REGAN [facility] Organization Address City/State/ZIP Co de Phone Number [facility] [address] [place] [phone], [facility] [phone] * (ABNORMAL) CBC W/O DIFFERENTIAL (02/24/2023 2:33 AM CDT) WBC 8.8 3.5 - 10.5 10? 3 /uL 02/24/2023 3:53 AM [facility] RBC 3.96 3.80 - 5.20 10? 6 /uL 02/24/2023 3:53 AM [facility] Hemoglobin 11.4(L) 12.0 - 15.6 g/dL 02/24/2023 3:53 AM [facility] Hematocrit 36.5 35.0 - 45.0 % 02/24/2023 3:53 AM [facility] MCV 92.2 80.7 - 98.3 fL 02/24/2023 3:53 AM [facility] MCH 28.8 26.7 - 34.0 pg 02/24/2023 3:53 AM [facility] MCHC 31.2 30.8 - 35.9 g/dL 02/24/2023 3:53 AM [facility] RDW-SD 45.6 36.0 - 50.0 fL 02/24/2023 3:53 AM [facility] RDW-CV 13.3 11.2 - 14.8 % 02/24/2023 3:53 AM [facility] Platelet Count 187 150 - 400 10? 3 /uL 02/24/2023 3:53 AM [facility] MPV 11.2 9.4 - 12.9 fL 02/24/2023 3:53 AM [facility] nRBC Absolute 0.00 0 10? 3 /uL 02/24/2023 3:53 AM [facility] nRBC Auto 0.0 0 /100 WBC 02/24/2023 3:53 AM [facility] Blood BLOOD SPECIMEN / Unknown Lab Venipuncture / Unknown 02/24/2023 2:33 AM CDT 02/24/2023 3:33 AM CDT Maxi Gregg MD LAB - HEMATOLOGY ORDERABLES Performing Organization Address City/State/[facility] Co de Phone Number [facility] [address] [place] [address], [facility] [phone] * (ABNORMAL) GLUCOSE - POINT OF CARE (02/23/2023 7:34 PM CDT) Glucose WB/POC 260(H) 70 - 115 mg/dL 02/25/2023 9:13 AM [facility] Specimen Type Cap Fingerstick 2022 9:13 AM [facility] Blood BLOOD SPECIMEN / Unknown 02/23/2023 7:34 PM CDT 02/25/2023 9:13 AM CDT Maxi Gregg MD LAB - POINT [facility] ARE ORDERABLES [address] [address], [place] [phone] * (ABNORMAL) GLUCOSE - POINT OF CARE (02/23/2023 4:05 PM CDT) Glucose WB/POC 216(H) 70 - 115 mg/dL 02/23/2023 4:16 PM CDT [facility] Specimen Type Arterial 02/23/2023 4:16 PM CDT [facility] Blood BLOOD SPECIMEN / Unknown 02/23/2023 4:05 PM CDT 02/23/2023 4:16 PM CDT Maxi Gregg MD LAB - POINT [facility] ARE ORDERABLES Performing Organization Address City/[facility]/ZIP Co de Phone Number [address] [address], [place] [phone] * CARDIAC EKG ORDER (02/23/2023 2:13 PM CDT) Narrative 02/23/2023 2:13 PM CDT Ordered by an unspecified provider. Scanned Document CARDIAC SERVICES ORD ERABLES * (ABNORMAL) GLUCOSE - POINT OF CARE (02/23/2023 11:59 AM CDT) Glucose WB/POC 256(H) 70 - 115 mg/dL 02/23/2023 12:04 PM CDT [facility] Specimen Type Arterial 02/23/2023 12:04 PM CDT [facility] Blood BLOOD SPECIMEN / Unknown 02/23/2023 11:59 AM CDT 02/23/2023 12:04 PM CDT Maxi Gregg MD LAB - POINT [facility] ARE ORDERABLES [address] [address], [place] [phone] * (ABNORMAL) GLUCOSE - POINT OF CARE (02/23/2023 8:08 AM CDT) Glucose WB/POC 227(H) 70 - 115 mg/dL 02/23/2023 8:20 AM CDT [facility] Specimen Type Arterial 02/23/2023 8:20 AM CDT [facility] Blood BLOOD SPECIMEN / Unknown 02/23/2023 8:08 AM CDT 02/23/2023 8:20 AM CDT Maxi Gregg MD LAB - POINT [facility] ARE ORDERABLES [address] [address], [place] [phone] * (ABNORMAL) GLUCOSE - POINT OF CARE (02/23/2023 6:08 AM CDT) Glucose WB/POC 221(H) 70 - 115 mg/dL 02/23/2023 6:09 AM CDT [facility] Specimen Type Cap Fingerstick 2022 6:09 AM CDT [facility] Blood BLOOD SPECIMEN / Unknown 02/23/2023 6:08 AM CDT 02/23/2023 6:09 AM CDT Maxi Gregg MD LAB - POINT OF ARE ORDERABLES [address] [address], [place] [phone] * (ABNORMAL) GLUCOSE - POINT OF CARE (02/22/2023 7:24 PM CDT) Glucose WB/POC 246(H) 70 - 115 mg/dL 02/22/2023 7:25 PM CDT [facility] Specimen Type Cap Fingerstick 2022 7:25 PM CDT [facility] Blood BLOOD SPECIMEN / Unknown 02/22/2023 7:24 PM CDT 02/22/2023 7:25 PM CDT Maxi Gregg MD LAB - POINT OF ARE ORDERABLES Performing Organization Address City/[facility]/ZIP Co de Phone Number [address] [address], [place] [phone] * (ABNORMAL) GLUCOSE - POINT OF CARE (02/22/2023 4:46 PM CDT) Glucose WB/POC 287(H) 70 - 115 mg/dL 02/22/2023 4:50 PM CDT [facility] Specimen Type Cap Fingerstick 2022 4:50 PM CDT [facility] Blood BLOOD SPECIMEN / Unknown 02/22/2023 4:46 PM CDT 02/22/2023 4:50 PM CDT Maxi Gregg MD LAB - POINT OF ARE ORDERABLES Performing Organization Address City/[facility]/ZIP Co de Phone Number [address] [address], [place] [phone] * (ABNORMAL) C-REACTIVE PROTEIN (02/22/2023 3:11 PM CDT) [facility] C-Reactive Protein 4.9(H) <=0.5 mg/dL 02/22/2023 4:33 PM CDT [facility] Blood BLOOD SPECIMEN / Unknown Lab Venipuncture / Unknown 02/22/2023 3:11 PM CDT 02/22/2023 3:34 PM CDT Maxi Gregg MD LAB - CHEMISTRY ORDERABLES Performing Organization Address City/[facility]/ZIP Co de Phone Number [address] [address], [place] [phone] * (ABNORMAL) ERYTHROCYTE SEDIMENTATION RATE (02/22/2023 3:11 PM CDT) Erythrocyte Sedimentation Rate Westergren 87(H) 0 - 30 MM/HR 02/22/2023 4:18 PM CDT [facility] Blood BLOOD SPECIMEN / Unknown Lab Venipuncture / Unknown 02/22/2023 3:11 PM CDT 02/22/2023 3:41 PM CDT Maxi Gregg MD LAB - HEMATOLOGY ORDERABLES [address] [address], [place] [phone] * (ABNORMAL) GLUCOSE - POINT OF CARE (02/22/2023 11:59 AM CDT) Glucose WB/POC 177(H) 70 - 115 mg/dL 02/22/2023 12:03 PM CDT [facility] Specimen Type Cap Fingerstick 2022 12:03 PM CDT [facility] Blood BLOOD SPECIMEN / Unknown 02/22/2023 11:59 AM CDT 02/22/2023 12:03 PM CDT Maxi Gregg MD LAB - POINT OF C ARE ORDERABLES Performing Organization Address City/[facility]/ZIP Co de Phone Number [address] [address], [place] [phone] * CT LUMBAR SPINE W CONTRAST (02/22/2023 8:40 AM CDT) Anatomical Region Laterality Modality Spine Computed Tomogra phy 02/22/2023 8:48 AM CDT Impressions 02/22/2023 1:32 PM CDT IMPRESSION: 1.Postoperative findings of left-sided spinal stimulator device without evidence of rim-enhancing fluid collection to suggest abscess. 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 > Dictated by Henri Lopez DO (resident) Connie Perez MD have personally reviewed and interpreted this examination/study. > Interpreting Provider: Connie Hernandez MD on 02/22/2023 1:32 PM Narrative 02/22/2023 1:32 PM CDT PROCEDURE: ??CT LUMBAR SPINE W CONTRAST DATE/TIME OF EXAM: ??02/22/2023 8:42 AM CLINICAL INFORMATION: 67-year-old female with past medical history including chronic low back pain status post spinal stimulator implant on 09/16/2021 complicated by infection requiring removal on 10/30/2021, recently had a new spinal stimulator device implanted on 02/16/2023 and now reporting symptoms similar to when the prior spinal stimulator became infected, reporting left buttock wound with drainage Indication: G89.18: Acute post-operative pain COMPARISON: Prior CT lumbar spine dated 12/16/2021, CT abdomen pelvis with contrast dated 02/22/2023 TECHNIQUE: Axial, sagittal and coronal reformatted images of the lumbar spine were rendered from the CT abdomen pelvis with contrast from 02/22/2023. FINDINGS: There is a partially visualized left-sided spinal stimulator device and lead. Mild surrounding fat stranding, likely represent minimal inflammation, but no well-defined fluid collection to suggest clary abscess formation. Minimal anterolisthesis of L5 on S1. The alignment is otherwise maintained. Vertebral bodies are normal in height without evidence of acute fracture. There is diffuse disc bulge at multiple levels. Mild multilevel central canal stenosis is seen. There is mild to advanced facet osteoarthritis at multiple levels. There are varying degrees of neural foraminal stenosis at multiple levels. There are advanced degenerative changes of the SI joints. There is atherosclerotic calcification of the abdominal aorta and its branch vessels. Procedure Note Connie Hernandez MD - 02/22/2023 PROCEDURE: CT LUMBAR SPINE W CONTRAST DATE/TIME OF EXAM: 02/22/2023 8:42 AM CLINICAL INFORMATION: 67-year-old female with past medical history including chronic low back pain status post spinal stimulator implant on 09/16/2021 complicated by infection requiring removal on 10/30/2021,recently had a new spinal stimulator device implanted on 02/16/2023 and now reporting symptoms similar to when the prior spinal stimulator became infected, reporting left buttock wound with drainage Indication: G89.18: Acute post-operative pain COMPARISON: Prior CT lumbar spine dated 12/16/2021, CT abdomen pelvis with contrast dated 02/22/2023 TECHNIQUE: Axial, sagittal and coronal reformatted images of the lumbar spine were rendered from the CT abdomen pelvis with contrast from 02/22/2023. FINDINGS: There is a partially visualized left-sided spinal stimulator device and lead. Mild surrounding fat stranding, likely represent minimal inflammation, but no well-defined fluid collection to suggest frankabscess formation. Minimal anterolisthesis of L5 on S1. The alignment is otherwisemaintained. Vertebral bodies are normal in height without evidence of acutefracture. There is diffuse disc bulge at multiple levels. Mild multilevel central canal stenosis is seen. There is mild to advanced facet osteoarthritisat multiple levels. There are varying degrees of neural foraminal stenosisat multiple levels. There are advanced degenerative changes of the SIjoints. There is atherosclerotic calcification of the abdominal aorta and its branch vessels. IMPRESSION: 1.Postoperative findings of left-sided spinal stimulator device without evidence of rim-enhancing fluid collection to suggest abscess. 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 > Dictated by Henri Lopez DO (resident) Connie Perez MD have personally reviewed and interpretedthis examination/study. > Interpreting Provider: Connie Hernandez MD on 02/22/2023 1:32 PM Maxi Gregg MD CT ORDERABLES * VANCOMYCIN LEVEL TROUGH (02/22/2023 7:59 AM CDT) Vancomycin Trough 14.6 10.0 - 20.0 ug/mL 02/22/2023 10:46 AM CDT [facility] Blood BLOOD SPECIMEN / Unknown Lab Venipuncture / Unknown 02/22/2023 7:59 AM CDT 02/22/2023 9:51 AM CDT Narrative [facility] - 02/22/2023 10:46 AM CDT See institution protocol. Berenice Hawkins MD LAB - CHEMISTRY ANGEL SPEARS [address] [address], [facility] [phone] * VANCOMYCIN LEVEL PEAK (02/22/2023 2:46 AM CDT) Vancomycin Peak 25.3 25.0 - 40.0 ug/mL 02/22/2023 3:13 AM CDT [facility] Blood BLOOD SPECIMEN / Unknown Venipuncture / Unknown 02/22/2023 2:46 AM CDT 02/22/2023 2:53 AM CDT Narrative [facility] - 02/22/2023 3:13 AM CDT See institution protocol. Data does not support the use of vancomycin peak concentration for efficacy. Berenice Hawkins MD LAB - CHEMISTRY ORDE RABSIMRAN [facility] [address] [place] [address], [facility] [phone] * CULTURE URINE (02/22/2023 2:41 AM CDT) Culture Urine <10,000 CFU/mL urogenital charla TERRANCE 02/23/2023 12:17 PM CDT [facility] Urine URINE SPECIMEN OBTAINED BY CLEAN CATCH PROCEDURE / Unknown Collection / Unknown 02/22/2023 2:41 AM CDT 02/22/2023 3:19 AM CDT Berenice Hawkins MD LAB - MICROBIOLOGY O RDERABLES Performing Organization Address City/[facility]/ZIP Co de Phone Number [facility] [address] [place] [address], [facility] [phone] * (ABNORMAL) URINE MICROSCOPIC ONLY REFLEX TO CULTURE (02/22/2023 2:41 AM CDT) Reflex Status Culture to follow 02/22/2023 3:19 AM CDT [facility] RBC UA 3-5 None Seen, 0-2, 3-5 /HPF 02/22/2023 3:19 AM CDT [facility] WBC UA 21-50(A) None Seen, 0-5 /HPF 02/22/2023 3:19 AM CDT [facility] Bacteria UA 3+(A) None /HPF 02/22/2023 3:19 AM CDT [facility] Squamous Epithelial Cells UA 0-2 None Seen, 0-2, 3-5 /HPF 02/22/2023 3:19 AM [facility] Mucus UA 1+ /LPF 02/22/2023 3:19 AM [facility] Urine URINE SPECIMEN OBTAINED BY CLEAN CATCH PROCEDURE / Unknown Collection / Unknown 02/22/2023 2:41 AM CDT 02/22/2023 2:53 AM CDT Narrative [facility] - 02/22/2023 3:19 AM CDT Berenice Hawkins MD LAB - URINALYSIS ORD ERABLES [facility] [address] [place] [address], [facility] [phone] * (ABNORMAL) URINALYSIS REFLEX MICROSCOPIC REFLEX CULTURE (02/22/2023 2:41 AM CDT) Color UA Yellow Straw, Yellow 02/22/2023 3:06 AM [facility] Clarity UA t Cloudy(A) Clear 02/22/2023 3:06 AM [facility] Specific [place] UA 1.026 1.005 - 1.030 02/22/2023 3:06 AM [facility] pH UA 5.0 5.0 - 8.0 pH 02/22/2023 3:06 AM [facility] Protein UA Negative Negative 02/22/2023 3:06 AM [facility] Glucose UA 3+(A) Negative 02/22/2023 3:06 AM [facility] Ketone UA Negative Negative 02/22/2023 3:06 AM [facility] Bilirubin UA Negative Negative 02/22/2023 3:06 AM [facility] Blood UA 2+(A) Negative 02/22/2023 3:06 AM [facility] Nitrite UA Positive(A) Negative 02/22/2023 3:06 AM [facility] Leukocyte Esterase 1+(A) Negative 02/22/2023 3:06 AM [facility] Urobilinogen UA Negative Negative mg/dL 02/22/2023 3:06 AM [facility] Urine URINE SPECIMEN OBTAINED BY CLEAN CATCH PROCEDURE / Unknown Collection / Unknown 02/22/2023 2:41 AM CDT 02/22/2023 2:53 AM CDT Narrative [facility] - 02/22/2023 3:06 AM CDT Berenice Hawkins MD LAB - URINALYSIS ORD ERABLES [facility] [address] [place] [address], [facility] [phone] * CT ABDOMEN PELVIS W CONTRAST (02/22/2023 12:50 AM CDT) Anatomical Region Laterality Modality Abdomen, Pelvis Computed [...] pelvis. Report drafted by Edgar Gonzales (resident) ISELVIN MD have personally reviewed and interpreted this examination/study. > Interpreting Provider: SELVIN BARON MD on 02/22/2023 11:12 AM Berenice Hawkins MD CT ORDERABLES * CULTURE BLOOD (02/21/2023 8:35 PM CDT) Culture No growth day 5 [place] 02/26/2023 10:02 PM [facility] Blood PERIPHERAL BLOOD / Unknown Venipuncture / Unknown 02/21/2023 8:35 PM CDT 02/21/2023 8:38 PM CDT Berenice Hawkins MD LAB - MICROBIOLOGY [place] Performing Organization Address City/[facility]/ZIP Co de Phone Number [facility] [address] [place] [address], [facility] [phone] * CULTURE BLOOD (02/21/2023 8:20 PM CDT) Culture No growth day 5 [place] 02/26/2023 10:02 PM [facility] Blood PERIPHERAL BLOOD / Unknown Venipuncture / Unknown 02/21/2023 8:20 PM CDT 02/21/2023 8:38 PM CDT Berenice Hawkins MD LAB - MICROBIOLOGY [place] Performing Organization Address City/[facility]/ZIP Co de Phone Number [facility] [address] [place] [address], [facility] [phone] * TROPONIN-I HIGH SENSITIVE REFLEX 1HOUR (02/21/2023 7:55 PM CDT) Troponin I High Sensitive 3 <=14 ng/L 02/21/2023 8:45 PM CDT [facility] [place] Troponin I HS <0 <6 ng/L 02/21/2023 8:45 PM CDT [facility] Blood BLOOD SPECIMEN / Unknown Venipuncture / Unknown 02/21/2023 7:55 PM CDT 02/21/2023 8:18 PM CDT Berenice Hawkins MD LAB - CHEMISTRY ANGEL SPEARS [facility] [address] [place] [address], [place] [phone] * EKG 12-LEAD (02/21/2023 6:42 PM CDT) [facility] Ventricular Rate 100 BPM [facility] Atrial Rate 100 BPM [facility] P-R Interval 124 ms [facility] QRS Duration ms 76 ms [facility] [place] [facility] Q-T Interval ms 340 ms [facility] [place] [facility] QTC Calculation (Bezet) 438 ms [facility] [place] [facility] Calculated P Crosby -7 degrees [facility] [place] [facility] Calculated R Crosby -4 degrees [facility] [place] [facility] Calculated T Crosby 30 degrees [facility] [place] [facility] Interpretation EKG NORMAL SINUS RHYTHM NONSPECIFIC T WAVE ABNORMALITY ABNORMAL ECG WHEN COMPARED WITH ECG OF 21-FEB-2023 18:36, MANUAL COMPARISON REQUIRED, DATA IS UNCONFIRMED Confirmed by JUAN DE LA PAZ MD ([id number]) on 02/23/2023 6:29:21 PM [facility] [place] [facility] 02/21/2023 6:42 PM CDT 02/23/2023 6:29 PM CDT Berenice Hawkins MD ECG ORDERABLES Performing Organization Address City/[facility]/ZIP Co de Phone Number [facility] * TROPONIN-I HIGH SENSITIVE BASELINE + 1HR (02/21/2023 6:30 PM CDT) [facility] Troponin I High Sensitive 4 <=14 ng/L 02/21/2023 7:06 PM CDT [facility] Blood BLOOD SPECIMEN / Unknown Venipuncture / Unknown 02/21/2023 6:30 PM CDT 02/21/2023 6:35 PM CDT Berenice Hawkins MD LAB - CHEMISTRY ANGEL SPEARS [facility] [address] [place] [address], [facility] [phone] * PT-INR [facility] (02/21/2023 6:30 PM CDT) [facility] PT 13.2 12.1 - 14.8 Seconds 02/21/2023 7:10 PM CDT [facility] INR 1.0 See Comment 02/21/2023 7:10 PM CDT [facility] Comment:The suggested therap eutic range for standard coumadin (warfarin) therapy is an INR of 2.0-3.0. For high-risk patients (Mechanical Mitral Valve Prosthesis, etc.), the suggested prophylactic therapeutic range is an INR of 2.5-3.5. Blood BLOOD SPECIMEN / Unknown Venipuncture / Unknown 02/21/2023 6:30 PM CDT 02/21/2023 6:34 PM CDT Berenice Hawkins MD LAB - COAGULATION OR DERABLES Performing Organization Address City/[facility]/ZIP Co de Phone Number [address] [address], [facility] [phone] * LACTIC ACID BLOOD REFLEX TO REPEAT (02/21/2023 6:30 PM CDT) [facility] Lactic Acid-Stat 1.8 <=2.0 mmol/L 02/21/2023 6:56 PM CDT [facility] Blood BLOOD SPECIMEN / Unknown Venipuncture / Unknown 02/21/2023 6:30 PM CDT 02/21/2023 6:35 PM CDT Berenice Hawkins MD LAB - CHEMISTRY ORDE RABLES Performing Organization Address [facility] Co de Phone Number [address] [phone], [facility] [phone] * (ABNORMAL) COMPREHENSIVE METABOLIC PANEL (02/21/2023 6:30 PM CDT) [facility] BUN 16 7 - 26 mg/dL 02/21/2023 7:00 PM CDT [facility] Creatinine 0.70 0.56 - 0.96 mg/dL 02/21/2023 7:00 PM CDT [facility] Sodium 137 136 - 145 mmol/L 02/21/2023 7:00 PM T [facility] Potassium 3.9 3.5 - 4.5 mmol/L 02/21/2023 7:00 PM CDT [facility] Chloride 101 98 - 107 mmol/L 02/21/2023 7:00 PM T [facility] CO2 28 22 - 29 mmol/L 02/21/2023 7:00 PM [facility] Glucose 301(H) 70 - 115 mg/dL 02/21/2023 7:00 PM [facility] Calcium 10.4(H) 8.4 - 10.2 mg/dL 02/21/2023 7:00 PM [facility] Protein Total 8.8(H) 6.0 - 8.3 g/dL 02/21/2023 7:00 PM [facility] Albumin 3.6 3.4 - 5.0 g/dL 02/21/2023 7:00 PM [facility] Bilirubin Total 0.7 0.2 - 1.2 mg/dL 02/21/2023 7:00 PM [facility] Alkaline Phosphatase 84 40 - 150 U/L 02/21/2023 7:00 PM [facility] ALT 19 5 - 55 U/L 02/21/2023 7:00 PM [facility] AST 18 5 - 34 U/L 02/21/2023 7:00 PM [facility] Anion Gap 8 6 - 16 02/21/2023 7:00 PM [facility] BUN/Creatinine Ratio 23 7 - 23 02/21/2023 7:00 PM [facility] Osmolality Calculated 296(H) 275 - 295 mOsm/kg 02/21/2023 7:00 PM [facility] Albumin/Globulin Ratio 0.7(L) 1.1 - 2.3 02/21/2023 7:00 PM [facility] eGFR by CKD-EPI >90 >=90 mL/min/1.7 3 m2 02/21/2023 7:00 PM [facility] Blood BLOOD SPECIMEN / Unknown Venipuncture / Unknown 02/21/2023 6:30 PM CDT 02/21/2023 6:35 PM CDT Berenice Hawkins MD LAB - CHEMISTRY ANGEL SPEARS [facility] Organization Address City/State/ZIP Co de Phone Number [facility] [address] [place] [address], [facility] [phone] * (ABNORMAL) CBC W AUTO DIFFERENTIAL (02/21/2023 6:30 PM CDT) WBC 11.6(H) 3.5 - 10.5 10? 3 /uL 02/21/2023 6:57 PM [facility] RBC 4.78 3.80 - 5.20 10? 6 /uL 02/21/2023 6:57 PM [facility] Hemoglobin 13.9 12.0 - 15.6 g/dL 02/21/2023 6:57 PM [facility] Hematocrit 42.8 35.0 - 45.0 % 02/21/2023 6:57 PM [facility] MCV 89.5 80.7 - 98.3 fL 02/21/2023 6:57 PM [facility] MCH 29.1 26.7 - 34.0 pg 02/21/2023 6:57 PM [facility] MCHC 32.5 30.8 - 35.9 g/dL 02/21/2023 6:57 PM [facility] RDW-SD 43.9 36.0 - 50.0 fL 02/21/2023 6:57 PM [facility] RDW-CV 13.3 11.2 - 14.8 % 02/21/2023 6:57 PM [facility] Platelet Count 329 150 - 400 10? 3 /uL 02/21/2023 6:57 PM [facility] MPV 10.0 9.4 - 12.9 fL 02/21/2023 6:57 PM [facility] nRBC Absolute 0.00 0 10? 3 /uL 02/21/2023 6:57 PM [facility] nRBC Auto 0.0 0 /100 WBC 02/21/2023 6:57 PM [facility] Neutrophils % 65.4 35.0 - 70.0 % 02/21/2023 6:57 PM [facility] Lymphocytes % 23.3 20.0 - 43.0 % 02/21/2023 6:57 PM [facility] Monocytes % 6.3 5.0 - 13.0 % 02/21/2023 6:57 PM [facility] Eosinophils % 4.3 0.0 - 6.0 % 02/21/2023 6:57 PM CDT [facility] Basophil % 0.3 0.0 - 2.0 % 02/21/2023 6:57 PM CDT [facility] Neutrophils Absolute 7.60(H) 1.60 - 7.00 10? 3 /uL 02/21/2023 6:57 PM CDT [facility] Lymphocyte Absolute 2.71 1.10 - 3.90 10? 3 /uL 02/21/2023 6:57 PM CDT [facility] Monocytes Absolute 0.73 0.26 - 1.07 10? 3 /uL 02/21/2023 6:57 PM CDT [facility] Eosinophils Absolute 0.50(H) 0.00 - 0.47 10? 3 /uL 02/21/2023 6:57 PM CDT [facility] Basophils Absolute 0.04 0.00 - 0.08 10? 3 /uL 02/21/2023 6:57 PM CDT [facility] Immature Granulocytes % 0.4 0.0 - 1.0 % 02/21/2023 6:57 PM CDT [facility] Immature Granulocytes Absolute 0.05 02/21/2023 6:57 PM CDT [facility] Blood BLOOD SPECIMEN / Unknown Venipuncture / Unknown 02/21/2023 6:30 PM CDT 02/21/2023 6:35 PM CDT Berenice Hawkins MD LAB - HEMATOLOGY ORD ERABLES [facility] [address] [place] [address], [facility] [phone] * HEPATITIS C AB SCREEN RFLX NAAT QUANT (02/21/2023 6:30 PM CDT) Hepatitis C Antibody Non-react hugh Non-reac tive 02/21/2023 7:32 PM CDT [facility] Comment:Hepatitis C Antibody screen indicates no [...] Solitario MD LAB - CHEMISTRY ANGEL SPEARS [facility] [address] [place] [address], [facility] [phone] documented in this encounter Visit Diagnoses Diagnosis Acute post-operative pain- Primary History of wound infection Cellulitis, wound, post-operative Other postoperative infection Cellulitis, wound, post-operative Other postoperative infection documented in this encounter Administered Medications Inactive Administered Medications - up to 3 most recent administrations Medication Order MAR Action Action Date Dose Rate Site 0.9% NaCl injection 1-10 mL 1-10 mL, Intracatheter, PRN, Other, peripheral line flush, Starting on Mon02/21/23 at 1802, Until Mon02/26/23 at 1633, Flush peripheral IV catheter with 1-10 mL of normal saline before and after medications and prn to clear blood from the line or to verify patency. 0.9% NaCl injection 3 mL 3 mL, Intracatheter, EVERY 8 HOURS, First dose on Mon02/21/23 at 2200, Until Discontinued, Flush peripheral IV catheter with 3 mL of normal saline every 8 hours. $ Given 02/26/2023 2:32 PM TECHNICAL BUSINESS ANALYST 3 mL $ Given 02/25/2023 1:44 PM CDT 3 mL $ Given 02/25/2023 5:02 AM CDT 3 mL 0.9% NaCl IV bolus 2,000 mL, at 1,967.21 mL/hr, Administer over 61 Minutes, ONCE, 1 dose, On Mon02/21/23 at 1830 $ New Bag/Syringe 02/21/2023 6:50 PM CDT 2,000 mL 1967.21 mL/hr amitriptyline (Elavil) tablet 25 mg 25 mg, Oral, AT BEDTIME, First dose on Mon02/22/23 at 2100, Until Discontinued $ Given 02/25/2023 8:13 PM CDT 25 mg $ Given 02/24/2023 8:43 PM CDT 25 mg $ Given 02/23/2023 8:40 PM CDT 25 mg dextrose 10 % IV bolus 12.5 g, at 468.75 mL/hr, Intravenous, PRN, Other, Bedside Glucose less than 70 mg/dL -If NOT able to eat and/or NPO and with IV Access, Starting on Mon02/22/23 at 0853, Until Mon02/26/23 at 1633, If NOT able to eat and/or NPO [...] NPO and with IV Access, Starting on Mon02/22/23 at 0853, Until Mon02/26/23 at 1633, If NOT able to eat and/or NPO [...] capsule 50 mg 50 mg, Oral, EVERY 4 HOURS PRN, Itching, Starting on Mon02/22/23 at 1934, Until Mon02/26/23 at 1633, Second line for itching $ Given 02/22/2023 7:58 PM CDT 50 mg ertapenem (INVanz) 1,000 mg in 0.9% NaCl IV 50 mL IVPB 1,000 mg (1 g), at 100 mL/hr, Intravenous, NOW, 1 dose, On Mon02/21/23 at 2030, Indication for anti-infective therapy: Documented infection, Site of anti-infective therapy: Wound $ New Bag/Syringe 02/21/2023 9:00 PM CDT 1,000 mg 100 mL/hr glucagon (Glucagen) injection 1 mg 1 mg, Subcutaneous, PRN, Bedside Glucose less than 70 mg/dL - If NOT able to eat and/or NPO and withOUT IV Access, Starting on Mon02/22/23 at 0853, Until 02/26/23 at 1633, If NOT able to eat and/or NPO [...] does not have swallowing difficulties, Starting on Mon02/22/23 at 0853, Until 02/26/23 at 1633, If able to eat and can swallow [...] does not have swallowing difficulties, Starting on Mon02/22/23 at 0853, Until 02/26/23 at 1633, If able to eat and is better [...] does not have swallowing difficulties, Starting on Mon02/22/23 at 0853, Until 02/26/23 at 1633, If able to eat and does not [...] for choices). NOTIFY PROVIDER OF HYPOGLYCEMIC EVENT. heparin injection 7,500 Units 7,500 Units, Subcutaneous, EVERY 8 HOURS, First dose on Valeri 02/23/23 at 1400, Until Discontinued $ Given 02/26/2023 1:14 PM TECHNICAL BUSINESS ANALYST 7,500 Units Abdominal Tissue $ Given 02/25/2023 8:12 PM CDT 7,500 Units A bdominal Tissue $ Given 02/25/2023 1:46 PM CDT 7,500 Units A bd Left Lower Quadrant HYDROcodone-acetaminophen ([place]) 10-325 MG tablet 1 tablet 1 tablet, Oral, EVERY 4 HOURS PRN, Severe Pain, Starting on Mon02/22/23 at 0857, Until 02/26/23 at 1633, Patient preference for lesser PRN pain meds may be honored when the patient requests a less strong medication, a lower dose, or a less intrusive route of administration when the lesser drug, dose and route have been ordered for the patient. This patient request must be documented in the MAR. $ Given 02/26/2023 1:11 PM TECHNICAL BUSINESS ANALYST 1 tablet $ Given 02/25/2023 9:43 PM CDT 1 tablet $ Given 02/25/2023 4:12 PM CDT 1 tablet HYDROcodone-acetaminophen ([place]) 5-325 MG tablet 1 tablet 1 tablet, Oral, EVERY 4 HOURS PRN, Moderate Pain, Starting on Mon02/22/23 at 0857, Until 02/26/23 at 1633, Patient preference for lesser PRN pain meds may be honored when the patient requests a less strong medication, a lower dose, or a less intrusive route of administration when the lesser drug, dose and route have been ordered for the patient. This patient request must be documented in the MAR. $ Given 02/23/2023 8:33 AM CDT 1 tablet hydrocortisone (Hytone) 1 % cream Topical, 2 TIMES DAILY, First dose on Mon02/24/23 at 0900, Until Discontinued, To the area of rash around the incision but not on the incision $ Given 02/26/2023 9:44 AM TECHNICAL BUSINESS ANALYST $ Given 02/25/2023 8:14 PM CDT $ Given 02/25/2023 9:23 AM CDT HYDROmorphone (Dilaudid) injection 0.5 mg 0.5 mg, Intravenous, EVERY 3 HOURS PRN, Severe Pain, Starting on Mon02/21/23 at 2236, Until 02/26/23 at 1633, Patient preference for lesser PRN pain meds may be honored when the patient requests a less strong medication, a lower dose, or a less intrusive route of administration when the lesser drug, dose and route have been ordered for the patient. This patient request must be documented in the MAR. $ Given 02/26/2023 6:43 AM TECHNICAL BUSINESS ANALYST 0.5 m g $ Given 02/26/2023 2:12 AM TECHNICAL BUSINESS ANALYST 0.5 mg $ Given 02/25/2023 11:13 PM CDT 0.5 mg HYDROmorphone (Dilaudid) injection 1 mg 1 mg, Intravenous, ONCE, 1 dose, On Mon02/21/23 at 2030, Patient preference for lesser PRN pain meds may be honored when the patient requests a less strong medication, a lower dose, or a less intrusive route of administration when the lesser drug, dose and route have been ordered for the patient. This patient request must be documented in the MAR. $ Given 02/21/2023 8:15 PM CDT 1 mg hydrOXYzine HCl (Atarax) tablet 10 mg 10 mg, Oral, EVERY 6 HOURS PRN, Itching, Anxiety, Starting on Mon02/22/23 at 1145, Until 02/26/23 at 1633, 1st line for itching $ Given 02/25/2023 8:13 PM CDT 10 mg $ Given 02/24/2023 9:15 AM CDT 10 mg $ Given 02/22/2023 6:14 PM CDT 10 mg insulin aspart (NovoLOG) pen 0-18 Units 0-18 Units, Subcutaneous, 3 TIMES DAILY WITH MEALS, First dose on Mon02/22/23 at 1200, Until Discontinued, High Dose: Correction Insulin Bedside glucose should be done within 30-60 minutes of correction insulin administration. BG (mg/dL) Corrective Action LESS than 70 follow Hypoglycemic guidelines, 70-140 NO Correction insulin, 141-180 GIVE 3 units of insulin, 181-220 GIVE 6 units of insulin, 221-260 GIVE 9 units of insulin, 261-300 GIVE 12 units of insulin, 301-350 GIVE 15 units of insulin Greater than 350 GIVE 18 units of insulin and notify physician. , If the patient is NPO; DO NOT HOLD correction insulin If patient is eating meals and has orders for Mealtime insulin, combine and give at the same time. $ Given 02/26/2023 12:51 PM TECHNICAL BUSINESS ANALYST 9 Units Righ t Arm $ Given 02/26/2023 9:44 AM TECHNICAL BUSINESS ANALYST 3 Units Ab dominal Tissue $ Given 02/25/2023 5:18 PM CDT 12 Units Ri ght Arm insulin aspart (NovoLOG) pen 0-7 Units 0-7 Units, Subcutaneous, AT BEDTIME, First dose on Mon02/22/23 at 2100, Until Discontinued, High Dose: Correction Insulin Bedside glucose should be done within 30-60 minutes of correction insulin administration. BG (mg/dL) Corrective Action LESS than 70 follow Hypoglycemic guidelines, 70-180 NO Correction insulin, 181-220 GIVE 1 units of insulin, 221-260 GIVE 3 units of insulin, 261-300 GIVE 4 units of insulin, 301-350 GIVE 6 units of insulin Greater than 350 GIVE 7 units of insulin and notify physician. If the patient is NPO; DO NOT HOLD correction insulin If patient is eating meals and has orders for Mealtime insulin, combine and give at the same time. $ Given 02/25/2023 8:00 PM CDT 6 Units Abdominal Tissue $ Given 02/24/2023 8:55 PM CDT 4 Units R ight Arm $ Given 02/23/2023 8:43 PM CDT 3 Units Ri ght Arm iopamidol (Isovue 370) 76 % contrast Intravenous, CONTRAST ONCE, Starting on 02/21/23 at 2257, Until Valeri 02/23/23 at 2256 $ Given - Contrast 02/22/2023 12:32 AM CDT 100 mL losartan (Cozaar) tablet 50 mg 50 mg, Oral, DAILY, First dose on Valeri 02/23/23 at 1500, Until Discontinued $ Given 02/26/2023 8:55 AM TECHNICAL BUSINESS ANALYST 50 mg $ Given 02/25/2023 9:21 AM CDT 50 mg $ Given 02/24/2023 9:15 AM CDT 50 mg meropenem (Merrem) 1,000 mg in 0.9% NaCl IV 50 mL IVPB 1,000 mg, at 100 mL/hr, Intravenous, EVERY 8 HOURS, First dose on Mon02/22/23 at 1230, Until Discontinued, Indication for restricted (Tier 2) anti-infective therapy (empiric or definitive treatment): Hx of resistant ESBL or MDRO $ New Bag/Syringe 02/22/2023 12:37 PM CDT 1,000 mg 100 mL/hr methocarbamol (Robaxin) tablet 500 mg 500 mg, Oral, EVERY 6 HOURS PRN, Muscle Spasms, Starting on Mon02/22/23 at 0859, Until 02/26/23 at 1633 $ Given 02/25/2023 11:13 PM CDT 500 mg $ Given 02/24/2023 8:43 PM CDT 500 mg $ Given 02/23/2023 7:12 PM CDT 500 mg morphine injection 4 mg 4 mg, Intravenous, ONCE, 1 dose, On Mon02/21/23 at 1830, Patient preference for lesser PRN pain meds may be honored when the patient requests a less strong medication, a lower dose, or a less intrusive route of administration when the lesser drug, dose and route have been ordered for the patient. This patient request must be documented in the MAR. $ Given 02/21/2023 6:58 PM CDT 4 mg nystatin (Mycostatin) cream Topical, 2 TIMES DAILY, First dose on Mon02/24/23 at 0900, Until Discontinued, Apply to incision sites $ Given 02/26/2023 9:44 AM TECHNICAL BUSINESS ANALYST $ Given 02/25/2023 8:14 PM CDT $ Given 02/25/2023 9:23 AM CDT nystatin (Mycostatin) powder Topical, 3 TIMES DAILY, First dose on Mon02/24/23 at 0900, Until Discontinued, Apply to intertrigenous areas of abdominal skin folds $ Given 02/26/2023 1:12 PM TECHNICAL BUSINESS ANALYST $ Given 02/26/2023 9:46 AM TECHNICAL BUSINESS ANALYST $ Given 02/25/2023 1:45 PM CDT rOPINIRole (Requip) tablet 5 mg 5 mg, Oral, AT BEDTIME, First dose (after last modification) on Mon02/22/23 at 2100, Until Discontinued $ Given 02/25/2023 8:13 PM CDT 5 mg $ Given 02/24/2023 8:42 PM CDT 5 mg $ Given 02/23/2023 8:40 PM CDT 5 mg tolterodine (Detrol) tablet 2 mg 2 mg, Oral, 2 TIMES DAILY, First dose on Mon02/22/23 at 0930, Until Discontinued $ Given 02/26/2023 8:55 AM TECHNICAL BUSINESS ANALYST 2 mg $ Given 02/25/2023 8:13 PM CDT 2 mg $ Given 02/25/2023 9:21 AM CDT 2 mg vancomycin (Vancocin) 1,250 mg in 250 mL NaCl IVPB Premix 1,250 mg, at 200 mL/hr, Intravenous, EVERY 12 HOURS, First dose on Mon02/22/23 at 0930, Until Discontinued, Indication for anti-infective therapy: Documented infection, Site of anti-infective therapy: Wound $ New Bag/Syringe 02/22/2023 10:04 AM CDT 1,250 mg 200 mL/hr vancomycin (Vancocin) 1,500 mg in 500 mL NaCl IVPB Premix 1,500 mg, at 333.33 mL/hr, Intravenous, EVERY 12 HOURS, First dose (after last modification) on Mon02/22/23 at 2100, Until Discontinued, Indication for anti-infective therapy: Documented infection, Site of anti-infective therapy: Wound $ New Bag/Syringe 02/24/2023 9:13 AM CDT 1,500 mg 333.33 mL/hr $ New Bag/Syringe 02/23/2023 8:43 PM CDT 1,500 mg 333.33 mL/hr $ New Bag/Syringe 02/23/2023 8:28 AM CDT 1,500 mg 333.33 mL/hr vancomycin (Vancocin) 2,500 mg in 550 mL IVPB 2,500 mg, at 220 mL/hr, Intravenous, ONCE, 1 dose, On Mon02/21/23 at 2115, Indication for anti-infective therapy: Documented infection, Site of anti-infective therapy: Wound $ New Bag/Syringe 02/21/2023 9:27 PM CDT 2,500 mg 220 mL/hr documented in this encounter Active and Recently Administered Medications Due to Daylight Saving Time, this section may contain times in both CDT and TECHNICAL BUSINESS ANALYST. Scheduled Medication Order 02/24/2023 02/25/2023 02/26/2023 0.9% NaCl injection 3 mL(Linked Group 1) 3 mL, Intracatheter, EVERY 8 HOURS, First dose on Mon02/21/23 at 2200, Until Discontinued, Flush peripheral IV catheter with 3 mL of normal saline every 8 hours. 0546 ($ Given - Provider: Mary Bunn RN)1325 ($ Given - Provider: Caesar Wang RN)2044 ($ Given - Provider: Mary Bunn RN) 0502 ($ Given - Provider: Mary Bunn RN)1344 ($ Given - Provider: Caesar Wang RN)2200 (Canceled Entry - Provider: Yeni Sloan RN) 0600 (Canceled Entry - Provider: Yeni Sloan RN)1432 ($ Given - Provider: Chino Vera RN) amitriptyline (Elavil) tablet 25 mg 25 mg, Oral, AT BEDTIME, First dose on Mon02/22/23 at 2100, Until Discontinued 2042 ($ Given - Provider: Mary Bunn RN) 2012 ($ Given - Provider: Yeni Sloan RN) heparin injection 7,500 Units 7,500 Units, Subcutaneous, EVERY 8 HOURS, First dose on Mon02/23/23 at 1400, Until Discontinued 0546 ($ Given - Provider: Mary Bunn RN)1325 ($ Given - Provider: Caesar Wang, NURIS)204 ($ Given - Provider: Mary Bunn RN) 0539 ($ Given - Provider: Mary Bunn RN)1346 ($ Given - Provider: Caesar Wang RN)2011 ($ Given - Provider: Yeni Sloan RN) 0607 (Not Administered - Provider: Yeni Sloan RN - Reason: Patient sleeping)1314 ($ Given - Provider: Chino Vera RN) hydrocortisone (Hytone) 1 % cream Topical, 2 TIMES DAILY, First dose on Mon02/24/23 at 0900, Until Discontinued, To the area of rash around the incision but not on the incision 900 ($ Given - Provider: Caesar Wang RN)2043 ($ Given - Provider: Mary Bunn RN) 922 ($ Given - Provider: Caesar Wang RN)2013 ($ Given - Provider: Yeni Sloan RN) 0944 ($ Given - Provider: Chino Vera RN) insulin aspart (NovoLOG) pen 0-18 Units 0-18 Units, Subcutaneous, 3 TIMES DAILY WITH MEALS, First dose on Mon02/22/23 at 1200, Until Discontinued, High Dose: Correction Insulin Bedside glucose should be done within 30-60 minutes of correction insulin administration. BG (mg/dL) Corrective Action LESS than 70 follow Hypoglycemic guidelines, 70-140 NO Correction insulin, 141-180 GIVE 3 units of insulin, 181-220 GIVE 6 units of insulin, 221-260 GIVE 9 units of insulin, 261-300 GIVE 12 units of insulin, 301-350 GIVE 15 units of insulin Greater than 350 GIVE 18 units of insulin and notify physician. , If the patient is NPO; DO NOT HOLD correction insulin If patient is eating meals and has orders for Mealtime insulin, combine and give at the same time. 0918 ($ Given - Provider: Caesar Wang RN)1324 ($ Given - Provider: Caesar Wang RN)1721 ($ Given - Provider: Caesar Wang RN) 0931 ($ Given - Provider: Caesar Wang RN)1337 ($ Given - Provider: Caesar Wang RN)1718 ($ Given - Provider: Caesar Wang RN) 0944 ($ Given - Provider: Chino Vera RN)1251 ($ Given - Provider: Chino Vera RN) insulin aspart (NovoLOG) pen 0-7 Units 0-7 Units, Subcutaneous, AT BEDTIME, First dose on Mon02/22/23 at 2100, Until Discontinued, High Dose: Correction Insulin Bedside glucose should be done within 30-60 minutes of correction insulin administration. BG (mg/dL) Corrective Action LESS than 70 follow Hypoglycemic guidelines, 70-180 NO Correction insulin, 181-220 GIVE 1 units of insulin, 221-260 GIVE 3 units of insulin, 261-300 GIVE 4 units of insulin, 301-350 GIVE 6 units of insulin Greater than 350 GIVE 7 units of insulin and notify physician. If the patient is NPO; DO NOT HOLD correction insulin If patient is eating meals and has orders for Mealtime insulin, combine and give at the same time. 2054 ($ Given - Provider: Mary Bunn RN) 1999 ($ Given - Provider: Yeni Sloan RN) losartan (Cozaar) tablet 50 mg 50 mg, Oral, DAILY, First dose on Valeri 02/23/23 at 1500, Until Discontinued 0915 ($ Given - Provider: Caesar Wang RN) 0921 ($ Given - Provider: Caesar Wang RN) 0855 ($ Given - Provider: Chino Vera RN) nystatin (Mycostatin) cream Topical, 2 TIMES DAILY, First dose on Mon02/24/23 at 0900, Until Discontinued, Apply to incision sites 900 ($ Given - Provider: Caesar Wang RN)2043 ($ Given - Provider: Mary Bunn RN) 09 ($ Given - Provider: Caesar Wang, NURIS)2013 ($ Given - Provider: Yeni Sloan RN) 0944 ($ Given - Provider: Chino Vera RN) nystatin (Mycostatin) powder Topical, 3 TIMES DAILY, First dose on Mon02/24/23 at 0900, Until Discontinued, Apply to intertrigenous areas of abdominal skin folds 09 ($ Given - Provider: Caesar Wang RN)1326 (Not Administered - Provider: Caesar Wang RN - Reason: Refused-Patient)2043 ($ Given - Provider: Mary Bunn RN) 09 (Not Administered - Provider: Caesar Wang RN - Reason: Refused-Patient)1345 ($ Given - Provider: Caesar Wang RN)2017 (Not Administered - Provider: Yeni Sloan RN - Reason: Refused-Patient) 0946 ($ Given - Provider: Chino Vera RN)1312 ($ Given - Provider: Chino Vera RN) rOPINIRole (Requip) tablet 5 mg 5 mg, Oral, AT BEDTIME, First dose (after last modification) on Mon02/22/23 at 2100, Until Discontinued 2041 ($ Given - Provider: Mary Bunn RN) 2012 ($ Given - Provider: Yeni Sloan, UNRIS) tolterodine (Detrol) tablet 2 mg 2 mg, Oral, 2 TIMES DAILY, First dose on Mon02/22/23 at 0930, Until Discontinued 09 ($ Given - Provider: Caesar Wang RN)2042 ($ Given - Provider: Mary Bunn RN) 0921 ($ Given - Provider: Caesar Wang, NURIS)2012 ($ Given - Provider: Yeni Sloan, NURIS) 0855 ($ Given - Provider: Chino Vera RN) vancomycin (Vancocin) 1,500 mg in 500 mL NaCl IVPB Premix (CANCELED) 1,500 mg, at 333.33 mL/hr, Intravenous, EVERY 12 HOURS, First dose (after last modification) on Mon02/22/23 at 2100, Until Discontinued, Indication for anti-infective therapy: Documented infection, Site of anti-infective therapy: Wound 0913 ($ New Bag/Syringe - Provider: Caesar Wang RN)1101 (Stopped - Provider: Caesar Wang RN) PRN Medication Order 02/24/2023 02/25/2023 02/26/2023 0.9% NaCl injection 1-10 mL(Linked Group 1) 1-10 mL, Intracatheter, PRN, Other, peripheral line flush, Starting on Mon02/21/23 at 1802, Until Mon02/26/23 at 1633, Flush peripheral IV catheter with 1-10 mL of normal saline before and after medications and prn to clear blood from the line or to verify patency. dextrose 10 % IV bolus(Linked Group 2) 12.5 g, at 468.75 mL/hr, Intravenous, PRN, Other, Bedside Glucose less than 70 mg/dL -If NOT able to eat and/or NPO and with IV Access, Starting on Mon02/22/23 at 0853, Until Mon02/26/23 at 1633, If NOT able to eat and/or NPO [...] NPO and with IV Access, Starting on Mon02/22/23 at 0853, Until [place] 02/26/23 at 1633, If NOT able to eat and/or NPO [...] capsule 50 mg 50 mg, Oral, EVERY 4 HOURS PRN, Itching, Starting on Mon02/22/23 at 1934, Until [place] 02/26/23 at 1633, Second line for itching glucagon (Glucagen) injection 1 mg(Linked Group 2) 1 mg, Subcutaneous, PRN, Bedside Glucose less than 70 mg/dL - If NOT able to eat and/or NPO and withOUT IV Access, Starting on Mon02/22/23 at 0853, Until [place] 02/26/23 at 1633, If NOT able to eat and/or NPO [...] does not have swallowing difficulties, Starting on Mon02/22/23 at 0853, Until 02/26/23 at 1633, If able to eat and can swallow [...] does not have swallowing difficulties, Starting on Mon02/22/23 at 0853, Until 02/26/23 at 1633, If able to eat and is better [...] does not have swallowing difficulties, Starting on Mon02/22/23 at 0853, Until 02/26/23 at 1633, If able to eat and does not [...] for choices). NOTIFY PROVIDER OF HYPOGLYCEMIC EVENT. HYDROcodone-acetaminophen ([place]) 10-325 MG tablet 1 tablet 1 tablet, Oral, EVERY 4 HOURS PRN, Severe Pain, Starting on Mon02/22/23 at 0857, Until 02/26/23 at 1633, Patient preference for lesser PRN pain meds may be honored when the patient requests a less strong medication, a lower dose, or a less intrusive route of administration when the lesser drug, dose and route have been ordered for the patient. This patient request must be documented in the MAR. 0546 ($ Given - Provider: Mary Bunn RN)1502 ($ Given - Provider: Caesar Wang RN)2046 ($ Given - Provider: Mary Bunn RN) 0921 ($ Given - Provider: Caesar Wang RN)1612 ($ Given - Provider: Caesar Wang RN)2143 ($ Given - Provider: Yeni Sloan RN) 1311 ($ Given - Provider: Chino Vera RN) HYDROcodone-acetaminophen ([place]) 5-325 MG tablet 1 tablet 1 tablet, Oral, EVERY 4 HOURS PRN, Moderate Pain, Starting on Mon02/22/23 at 0857, Until Mon02/26/23 at 1633, Patient preference for lesser PRN pain meds may be honored when the patient requests a less strong medication, a lower dose, or a less intrusive route of administration when the lesser drug, dose and route have been ordered for the patient. This patient request must be documented in the MAR. HYDROmorphone (Dilaudid) injection 0.5 mg 0.5 mg, Intravenous, EVERY 3 HOURS PRN, Severe Pain, Starting on Mon02/21/23 at 2236, Until 02/26/23 at 1633, Patient preference for lesser PRN pain meds may be honored when the patient requests a less strong medication, a lower dose, or a less intrusive route of administration when the lesser drug, dose and route have been ordered for the patient. This patient request must be documented in the MAR. 0152 ($ Given - Provider: Mary Bunn RN)0908 ($ Given - Provider: Caesar Wang RN)1720 ($ Given - Provider: Caesar Wang RN)2259 ($ Given - Provider: Mary Bunn RN) 0502 ($ Given - Provider: Mary Bunn RN)1343 ($ Given - Provider: Caesar Wang RN)2011 ($ Given - Provider: Yeni Sloan RN)2313 ($ Given - Provider: Yeni Sloan RN) 0212 ($ Given - Provider: Yeni Sloan RN)0643 ($ Given - Provider: Yeni Sloan RN) hydrOXYzine HCl (Atarax) tablet 10 mg 10 mg, Oral, EVERY 6 HOURS PRN, Itching, Anxiety, Starting on Mon02/22/23 at 1145, Until Mon02/26/23 at 1633, 1st line for itching 0915 ($ Given - Provider: Caesar Wang RN) 2012 ($ Given - Provider: Yeni Sloan RN) methocarbamol (Robaxin) tablet 500 mg 500 mg, Oral, EVERY 6 HOURS PRN, Muscle Spasms, Starting on Mon02/22/23 at 0859, Until Mon02/26/23 at 1633 2043 ($ Given - Provider: Mary Bunn RN) 2313 ($ Given - Provider: Yeni Sloan RN) Linked Groups Order Group 1: SALINE LOCK, INSERT AND MAINTAIN (CANCELED) Routine, CONTINUOUS, Starting on Mon02/21/23 at 1815, Until Specified, New collection, Task Completed: Yes And 0.9% NaCl injection 3 mLJump to med 3 mL, Intracatheter, EVERY 8 HOURS, First dose on Mon02/21/23 at 2200, Until Discontinued, Flush peripheral IV catheter with 3 mL of normal saline every 8 hours. And 0.9% NaCl injection 1-10 mLJump to med 1-10 mL, Intracatheter, PRN, Other, peripheral line flush, Starting on Mon02/21/23 at 1802, Until Mon02/26/23 at 1633, Flush peripheral IV catheter with 1-10 mL of normal saline before and after medications and prn to clear blood from the line or to verify patency. Group 2: dextrose 10 % IV bolusJump to med 12.5 g, at 468.75 mL/hr, Intravenous, PRN, Other, Bedside Glucose less than 70 mg/dL -If NOT able to eat and/or NPO and with IV Access, Starting on Mon02/22/23 at 0853, Until Mon02/26/23 at 1633, If NOT able to eat and/or NPO [...] NPO and with IV Access, Starting on Mon02/22/23 at 0853, Until [place] 02/26/23 at 1633, If NOT able to eat and/or NPO [...] NPO and withOUT IV Access, Starting on Mon02/22/23 at 0853, Until [place] 02/26/23 at 1633, If NOT able to eat and/or NPO [...] does not have swallowing difficulties, Starting on Mon02/22/23 at 0853, Until 02/26/23 at 1633, If able to eat and can swallow [...] does not have swallowing difficulties, Starting on Mon02/22/23 at 0853, Until 02/26/23 at 1633, If able to eat and is better [...] does not have swallowing difficulties, Starting on Mon02/22/23 at 0853, Until 02/26/23 at 1633, If able to eat and does not [...] for choices). NOTIFY PROVIDER OF HYPOGLYCEMIC EVENT. documented in this encounter Care Teams Cloth Inspector Relationship Specialty Start Date End Date Justen Gale MD PCP - General 07/05/21 documented as of this encounter
--- OUTSIDE RECORDS SUMMARY | 2024-04-26 02:31 | XMS_ITS | Encounter Summary ---
Author Organization [facility] Address [address] [facility] [place] [address] Care Team Providers Care Rooming House Operator Name Role Phone Justen Gale MD Primary Care Provider [phone] Reason for Visit * Reason Onset Date Comments Reminder Call 03/29/2023 Encounter Details Date Type Department Care Team (Late st Contact Info) Description 03/29/2023 Telephone Transitional Care at [address] [address] Aislinn Rosario, MONIKA Reminder Call Social History Tobacco Use Types Packs/Day Years [...] and heating? Not hard at all 02/22/2023 [facility] [place] of Occupat ional Health - Occupational Stress [...] encounter Miscellaneous Notes * Telephone Encounter - Aislinn Rosario MA - 03/29/2023 9:11 AM BOTTOM BUFFER Attempted to contact patient to confirm [facility] appointment on 03/30/23 at 9:00. No answer, left message to return our call to confirm appointment. OM BUFFER documented in this encounter Plan of Treatment Not on file documented as of this encounter Visit Diagnoses Not on filedocumented in this encounter Care Teams Rooming House Operator Relationship Specialty Start Date End Date Justen Gale MD PCP - General 07/05/21 documented as of this encounter
--- OUTSIDE RECORDS SUMMARY | 2024-04-26 02:32 | XMS_ITS | Encounter Summary ---
Author Organization [facility] Address [address] [place] [address] Care Team Providers Care Automation And Controls Supervisor Name Role Phone Justen Gale MD Primary Care Provider [phone] Reason for Visit * Reason Onset Date Comments Allergy Symptoms 12/01/2021 Encounter Details Date Type Department Care Team (Late st Contact Info) Description 12/01/2021 Telephone [facility] [address] [facility] [place] [id number] Aravind Ndiaye, DO [address] [facility] [place] [address] Allergy Symptoms Social History Tobacco Use Types Packs/Day Years Used Date Smoking Tobacco: Former Cigarettes Q uit: 12/05/1977 Smokeless Tobacco: Never Alcohol Use Standard Drinks/Week Comments No 0 (1 standard drink = 0.6 oz pur e alcohol) AUDIT-C Answer Date Recorded Q1: How often do you have a drink containing alcohol? Never 11/12/2021 Q2: How many drinks containi ng alcohol do you have on a typical day when you are drinking? Patient does not drink Q3: How often do you have si x or more drinks on one occasion? Never 11/12/2021 Hunger Vital Sign Answer Date Recorded Within the past 12 months, y ou worried that your food would run out before you got the money to buy more. Never true 11/16/19 Within the past 12 months, t he food you bought just didn't last and you didn't have money to get more. Never true 11/15/2021 Sex and Gender Information Value Date Recorded Sex Assigned at Not on file Gender Identity Not on file Sexual Orientation Not on file documented as of this encounter Functional Status Functional Status Response Date of Assess ment Is person deaf or have serious hearing difficult y? No 11/16/2021 Is person blind or have serious difficulty seein g? No 11/16/2021 Does person have serious dif ficulty walking/climbing stairs? No 11/16/2021 Does person have difficulty dressing/bathing? No 11/16/2021 Does person have difficulty doing errands alone? No 11/16/2021 Cognitive Status Response Date of Assessm ent Does person have difficulty concentrating/remembering/making decisions? No 11/16/2021 documented as of this encounter Miscellaneous Notes * Telephone Encounter - Aravind Ndiaye DO - 12/01/2021 8:27 PM CDT bingo caller fellow was paged as patient is currently having an interaction at the site of her midline. Patient informed me that she is having swelling/redness around her midline site which has been constant and associated with arm pain. I informed her that, without us examining this, it is difficult tosay whether this is a midline complication or true antibiotic allergy. She confirmed that she is not having any trouble breathing or other alarm symptoms at this time. I informed her that the safest thing at this point would be for her to present to the emergency room. I informed her that if she comes to the [facility] ED, someone from ID would potentially be able to evaluate her depending on whether the ED providers believe she is having an allergic reaction and needs to be admitted. She stated thatshe will plan to come to the ED in the morning. Will inform the primary ID provider. Aravind Ndiaye DO, MS Infectious Diseases Fellow bingo caller [facility] [address] [place] [address] Clinic phone [phone] Clinic fax [phone] documented in this encounter Plan of Treatment Not on file documented as of this encounter Visit Diagnoses Not on filedocumented in this encounter Care Teams Automation And Controls Supervisor Relationship Specialty Start Date End Date Justen Gale MD PCP - General 07/05/21 documented as of this encounter
--- OUTSIDE RECORDS SUMMARY | 2024-04-26 02:32 | XMS_ITS | Encounter Summary ---
Author Organization [facility] Address [address] [facility] [place] [address] Care Team Providers Care Hitch Technician Name Role Phone Justen Gale MD Primary Care Provider [phone] Encounter Details Date Type Department Care Team (Late st Contact Info) Description 01/27/2023 Orders Only [facility] - Neurosurgery [address] [place] [address], [place] [address] Maxi Gregg MD [address] [place] [address] [place] [address] Pre-op testing ; Low back pain, unspecified back pain laterality, unspecified chronicity, unspecified whether sciatica present Social History Tobacco Use Types Packs/Day Years Used Date Smoking Tobacco: Former Cigarettes Q uit: 12/05/1977 Smokeless Tobacco: Never Alcohol Use Standard Drinks/Week Comments No 0 (1 standard drink = 0.6 oz pur e alcohol) AUDIT-C Answer Date Recorded Q1: How often do you have a drink containing alc ohol? Monthly or less 12/23/2022 Q2: How many drinks containi ng alcohol do you have on a typical day when you are drinking? 1 or 2 12/23/2022 Q3: How often do you have si x or more drinks on one occasion? Never 12/23/2022 Overall Financial Resource Strain (CARDIA) Answe r Date Recorded How hard is it for you to pa y for the very basics like food, housing, medical care, and heating? Not hard at all 12/23/2022 [facility] [place] of Occupat ional Health - Occupational Stress Questionnaire Answer Date Recorded Do you feel stress - tense, restless, nervous, or anxious, or unable to sleep at night because your mind is troubled all the time - these days? Not at all 12/23/2022 Hunger Vital Sign Answer Date Recorded Within the past 12 months, y ou worried that your food would run out before you got the money to buy more. Never true 12/24/19 23 Within the past 12 months, t he food you bought just didn't last and you didn't have money to get more. Never true 12/23/2022 PRAPARE - Transportation Answer Date Re corded In the past 12 months, has l ack of transportation kept you from medical appointments or from getting medications? No 04/2022 In the past 12 months, has l ack of transportation kept you from meetings, work, or from getting things needed for daily living? No 12/23/2022 Housing Stability Vital Sign Answer [place] e Recorded In the last 12 months, was t here a time when you were not able to pay the mortgage or rent on time? No 12/23/2022 In the last 12 months, how many places have you lived? 1 12/23/2022 In the last 12 months, was t here a time when you did not have a steady place to sleep or slept in a nursing home (including now)? No 12/23/2022 Sex and Gender Information Value Date Recorded Sex Assigned at Not on file Gender Identity Not on file Sexual Orientation Not on file documented as of this encounter Functional Status Functional Status Response Date of Assess ment Is person deaf or have serious hearing difficult y? No 12/23/2022 Is person blind or have serious difficulty seein g? No 12/23/2022 Does person have serious dif ficulty walking/climbing stairs? No 12/23/2022 Does person have difficulty dressing/bathing? Ye s 12/23/2022 Does person have difficulty doing errands alone? No 12/23/2022 Cognitive Status Response Date of Assessm ent Does person have difficulty concentrating/remembering/making decisions? No 12/23/2022 documented as of this encounter Plan of Treatment Scheduled Orders Name Type Priority Associated Diagnoses Orde r Schedule BASIC METABOLIC PANEL (CALCIUM TOTAL) Lab Routine Pre-op testing 1 Occurrences starting 01/27/2023 until 02/21/2024 CBC WITH DIFFERENTIAL Lab Routine Pre-op testing 1 Occurrences starting 01/27/2023 until 02/21/2024 PT-INR Lab STAT Pre-op testing 1 Occurrences starting 01/27/2023 until 02/28/2024 PTT Lab Routine Pre-op testing 1 Occurrences starting 01/27/2023 until 02/28/2024 URINALYSIS W/MICROSCOPIC REFLEX TO CULTURE Lab Routine Pre-op testing 1 Occurrences starting 01/27/2023 until 02/28/2024 documented as of this encounter Visit Diagnoses Diagnosis Pre-op testing- Primary Preoperative examination, unspecified Low back pain, unspecified back pain laterality, unspecified chronicity, unspecified whether sciatica present documented in this encounter Care Teams Hitch Technician Relationship Specialty Start Date End Date Justen Gale MD PCP - General 07/05/21 documented as of this encounter
--- OUTSIDE RECORDS SUMMARY | 2024-04-26 02:32 | XMS_ITS | Encounter Summary ---
Author Organization [facility] Address [address] [place] [address] Care Team Providers Care Rollway Worker Name Role Phone Justen Gale MD Primary Care Provider [phone] Reason for Visit * Reason Onset Date Comments Medication Reaction 06/28/2022 Encounter Details Date Type Department Care Team (Late st Contact Info) Description 06/28/2022 Telephone [facility] [address] [place] [address] Caroline Sultana RN Medication Reaction Social History Tobacco Use Types Packs/Day Years [...] encounter Miscellaneous Notes * Telephone Encounter - Caroline Sultana RN - 06/28/2022 9:09 AM CST Patient called to report possible reaction to new bladder medication (Hiprex vs trospium)- itching,nausea (treated by PCP), feeling unwell, hot flashes. Feels that symptoms began after starting trospium and occur shortly after taking a dose. States she is generally high sensitive to medications. Was previously on Myrbetriq and was hypertensive on the medication. To Esteban ACEVEDO for treatment recommendations. [facility]ATE STUDIES DEAN documented in this encounter Plan of Treatment Not on file documented as of this encounter Visit Diagnoses Not on filedocumented in this encounter Care Teams Rollway Worker Relationship Specialty Start Date End Date Justen Gale MD PCP - General 07/05/21 documented as of this encounter
--- OUTSIDE RECORDS SUMMARY | 2024-04-26 02:32 | XMS_ITS | Encounter Summary ---
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 Name Role Phone Justen Gale MD Primary Care Provider [phone] Reason for Visit * Radiology Services (Routine) - Closed Specialty Diagnoses / Procedures Referred By Contac t Referred To Contact CT Scan Diagnoses Acute hematogenous osteomyelitis, unspecified site (HCC) Procedures CT LUMBAR SPINE W CONTRAST Jazmyne Torres MD [address] [place] [address] [facility] [address] [place] [address] Referral ID Status Reason Start Date Expiration Date Visits Re quested Visits Authorized [id number] Closed 12/06/2021 12/06/2022 1 1 Encounter Details Date Type Department Care Team (Latest Contact Info) Description 12/16/2021 12:00 PM CDT - 12/16/2021 11:59 PM CDT Hospital Encounter [facility] CAT SCAN [address] [place] [address] Jazmyne Griffith MD [address] [place] [address] Discharge Disposition: Home or Self Care Social [...] money to buy more. Never true 11/16/19 22 Within the past 12 months, t he food you bought just didn't last and you didn't have money to get more. Never true 11/15/2021 Sex and Gender Information Value Date Recorded Sex Assigned at Not on file Gender Identity Not on file Sexual Orientation Not on file COVID-19 Exposure Response Date Recorded In the last 10 days, have jenny mederos been in contact with someone who was confirmed or suspected to have Coronavirus/COVID-19? No / Unsure 12/16/2021 11:39 AM CDT documented as of this encounter Functional Status [...] No 11/16/2021 documented as of this encounter Medications at Time of Discharge Medication Sig Dispensed Refills Start Date End Date exemestane (AROMASIN) 25 MG tablet Take 1 (one) tablet by mouth DAILY 04/20/2017 insulin pen needle (B-D ULTRAFINE III SHORT PEN) 31G X 8 MM needle 4 times daily 300 Each 11/16/2021 Lancets (ONETOUCH DELICA PLUS 33G EXTRA FINE LANCET) USE FOUR TIMES DAILY 03/10/2021 ONETOUCH ULTRA test strip 4 times daily 02/01/2021 rOPINIRole (REQUIP) 5 MG tablet TAKE 1 TABLET BY MOUTH EVERY NIGHT 06/09/2021 acetaminophen (TYLENOL) 500 MG tablet Take 1 (one) tablet by mouth every 8 hours as needed for Fever or Pain Maximum allowable Acetaminophen amount = 4 Grams (4000 mg) / 24 hours. 11/16/2021 04/04/2022 amitriptyline (ELAVIL) 25 MG tabletIndications:for restless legs Take 1 (one) tablet by mouth at bedtime Reasons: for restless legs 06/05/2023 HYDROcodone-acetamino phen ([place]) 7.5-325 MG tablet Take 1 tablet by mouth every 6 hours as needed for Pain 04/04/2022 naloxone HCl (NARCAN) 4 MG/0.1ML nasal spray as needed 05/13/2021 04/20/2023 nystatin (Mycostatin) 800498 UNIT/ML suspension Swish and spit 5 mL as directed 12/07/2021 04/04/2022 NYSTOP 214416 UNIT/GM powder APPLY TO THE AFFECTED AREA THREE TIMES DAILY FOR 14 DAYS 11/09/2021 04/04/2022 pantoprazole EC (PROTONIX) 40 MG tablet Take 40 mg by mouth once daily 11/09/2021 04/04/2022 tiZANidine (ZANAFLEX) 4 MG tablet 09/16/2021 04/04/2022 XARELTO 20 MG tablet 11/08/2021 023 documented as of this encounter Plan of Treatment Not on file documented as of this encounter Procedures Procedure Name Priority Date/Time Associated Diagnosis Comments CT LUMBAR SPINE W CONTRAST Routine 12/16/2021 12:23 PM CDT Acute hematogenous osteomyelitis, unspecified site (HCC) documented in this encounter Results * CT LUMBAR SPINE W CONTRAST (12/16/2021 12:23 PM CDT) Anatomical Region Laterality Modality Spine Computed Tomogra phy 12/17/2021 12:2 1 PM CDT Impressions 12/17/2021 1:02 PM CDT IMPRESSION: Transitional segment consistent with a sacralized L5, as described. No evidence of overt bone destruction in the visualized spine suggestive of osteomyelitis. No evidence of rim-enhancing hypodense collections within the visualized spinal canal or paraspinal musculature. Partially visualized spinal stimulator wires within the subcutaneous fat posteriorly at the T10-11 level. The spinal stimulator leads are demonstrated within the spinal canal on the previous chest CT of 12 November 2021 at the T6, T7, T8 levels. Please refer to that report. If evaluation of the spinal stimulator leads and that portion of the spine is necessary from a clinical standpoint, postcontrast thoracic spine CT imaging may be obtained. 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 There is moderate central canal stenosis at L2-3 and mild central canal stenosis at L3-4. Old postoperative changes at L4-5. Degenerative changes of the sacroiliac joints. > Interpreting Provider: Jayro Clarke MD on 12/17/2021 1:02 PM Narrative 12/17/2021 1:02 PM CDT PROCEDURE: ??CT LUMBAR SPINE W CONTRAST, DATE/TIME OF EXAM: ??12/16/2021 12:24 PM, LOCATION ??[facility] INDICATION: M86.00: Acute hematogenous osteomyelitis, unspecified site ADDITIONAL CLINICAL INFORMATION: Ordering Provider Reason For Exam: ??History of spinal cord stimulator infection. Technologist Note: Additional: COMPARISON: None. TECHNIQUE: Contrast CT of the lumbar spine was preformed utilizing standard protocol. Sagittal and coronal reformatted images were rendered. ?? CT dose reduction technique was used, including Automated Exposure Control. IV CONTRAST: IOPAMIDOL 76 % IV SOLN:100 mL FINDINGS: There is a transitional segment. Correlation is made with patient's previous chest CT of 12 November 2021 which demonstrates that there are 12 rib-bearing thoracic vertebrae with ribs at the T12 level the hypoplastic. Using the 12th ribs as a landmark, it is apparent that the transitional segment on today's study represents a sacralized L5. Using this numbering system, today's axial images extend from possibly T10-S2. There is modest vascular contrast enhancement. There is no evidence of abnormal enhancement within the spinal canal. There is no rim-enhancing hypodense collection within the spinal canal. There is no abnormal rim-enhancing fluid collection within the psoas and erector spinae musculature or visualized subcutaneous fat. There is no overt bone destruction in the visualized spine. On the uppermost axial images there are partially visualized wires within the subcutaneous fat likely representing leads related to patient's spinal stimulator. The uppermost and inferior most portions of these are not included on today's study. There is no evidence of acute fracture. Vacuum phenomenon consistent with degenerative disc disease is noted at T10-11. There is a grade 1 spondylolisthesis of L4 on L5. At T10-11 there is mild diffuse disc bulging and endplate spurring. There is no canal or foraminal narrowing. At T11-12 there is no significant disc abnormality, canal or foraminal narrowing. At T12-L1 there is no significant disc abnormality. There is mild left foraminal narrowing secondary to facet joint spurring. At L1-2 there is mild diffuse disc bulging and endplate spurring. There is a partially calcified central disc protrusion. There is no canal stenosis or foraminal narrowing. At L2-3 there is mild diffuse disc bulging and endplate spurring with a central/right paracentral disc herniation measuring 5 mm in AP and 9 mm in transverse dimensions and exhibiting 5 mm rostral extension. Moderate central canal stenosis is present at the disc of ??abnormality, ligamentous thickening, and facet joint hypertrophy. There is mild bilateral foraminal narrowing. At L3-4 there is mild diffuse disc bulging which, posteriorly, is asymmetric to the right. There is a partially calcified right foraminal/extraforaminal disc protrusion measuring roughly 7 mm in AP dimension and which may produce impingement of the adjacent nerve root. Mild central canal stenosis produced by the disc abnormality, ligamentous thickening, and facet joint hypertrophy. There is moderate right foraminal narrowing and mild left. At L4-5 there is postoperative change consistent with a right laminotomy defect. There is mild diffuse disc bulging and endplate spurring. There is no canal stenosis. There is mild left foraminal narrowing. At L5-S1 there is mild diffuse disc bulging and endplate spurring. There is no canal stenosis or foraminal narrowing. Mild facet joint degenerative changes are present at L5-S1. Moderate facet joint hypertrophy is present at L4-5 with fusion of the facet joints bilaterally. Moderate facet joint degenerative changes are noted at L3-4 with mild facet joint degenerative change at the other levels. There are moderate degenerative changes of both sacroiliac joints with vacuum phenomenon and endplate eburnation. When today's study is compared to a previous lumbar MR dated 16 December 2011, the numbering system of the lumbar spine is altered due to demonstration that the transitional segment represents a sacralized L5 rather than a lumbarized S1. The postoperative changes and spondylolisthesis at L4-5, previously referred to as L5-S1, are new. The disc abnormalities at L3-4 and L2-3, previous refer to his L4-5 and L3-4, are more prominent on today's study. When today's study is compared to the chest CT of to October 2020 the spinal stimulator leads are noted within the spinal canal to T6, T7, and T8 levels with associated soft tissue thickening in the subcutaneous fat. Procedure Note Jayro Clarke MD - 12/17/2021 PROCEDURE: CT LUMBAR SPINE W CONTRAST, DATE/TIME OF EXAM: :24 PM, LOCATION [facility] INDICATION: M86.00: Acute hematogenous osteomyelitis, unspecified site ADDITIONAL CLINICAL INFORMATION: Ordering Provider Reason For Exam: History of spinal cord stimulator infection. Technologist Note: Additional: COMPARISON: None. TECHNIQUE: Contrast CT of the lumbar spine was preformed utilizing standard protocol. Sagittal and coronal reformatted images were rendered. CT dose reduction technique was used, including Automated ExposureControl. IV CONTRAST: IOPAMIDOL 76 % IV SOLN:100 mL FINDINGS: There is a transitional segment. Correlation is made with patient's previous chest CT of 12 November 2021 which demonstrates that there are 12 rib-bearing thoracic vertebrae with ribs at the T12 level thehypoplastic. Using the 12th ribs as a landmark, it is apparent that the transitional segment on today's study represents a sacralized L5. Using thisnumbering system, today's axial images extend from possibly T10-S2. There is modest vascular contrast enhancement. There is no evidence of abnormal enhancement within the spinal canal.There is no rim-enhancing hypodense collection within the spinal canal. Thereis no abnormal rim-enhancing fluid collection within the psoas and erector spinae musculature or visualized subcutaneous fat. There is no overt bone destruction in the visualized spine. On the uppermost axial images there are partially visualized wireswithin the subcutaneous fat likely representing leads related to patient'sspinal stimulator. The uppermost and inferior most portions of these are not included on today's study. There is no evidence of acute fracture. Vacuum phenomenon consistentwith degenerative disc disease is noted at T10-11. There is a grade 1 spondylolisthesis of L4 on L5. At T10-11 there is mild diffuse disc bulging and endplate spurring.There is no canal or foraminal narrowing. At T11-12 there is no significant disc abnormality, canal or foraminal narrowing. At T12-L1 there is no significant disc abnormality. There is mild left foraminal narrowing secondary to facet joint spurring. At L1-2 there is mild diffuse disc bulging and endplate spurring. Thereis a partially calcified central disc protrusion. There is no canalstenosis or foraminal narrowing. At L2-3 there is mild diffuse disc bulging and endplate spurring with a central/right paracentral disc herniation measuring 5 mm in AP and 9 mmin transverse dimensions and exhibiting 5 mm rostral extension. Moderate central canal stenosis is present at the disc of abnormality,ligamentous thickening, and facet joint hypertrophy. There is mild bilateralforaminal narrowing. At L3-4 there is mild diffuse disc bulging which, posteriorly, is asymmetric to the right. There is a partially calcified right foraminal/extraforaminal disc protrusion measuring roughly 7 mm in AP dimension and which may produce impingement of the adjacent nerve root. Mild central canal stenosis produced by the disc abnormality,ligamentous thickening, and facet joint hypertrophy. There is moderate rightforaminal narrowing and mild left. At L4-5 there is postoperative change consistent with a right laminotomy defect. There is mild diffuse disc bulging and endplate spurring. Thereis no canal stenosis. There is mild left foraminal narrowing. At L5-S1 there is mild diffuse disc bulging and endplate spurring. Thereis no canal stenosis or foraminal narrowing. Mild facet joint degenerative changes are present at L5-S1. Moderatefacet joint hypertrophy is present at L4-5 with fusion of the facet joints bilaterally. Moderate facet joint degenerative changes are noted at L3-4 with mild facet joint degenerative change at the other levels. There are moderate degenerative changes of both sacroiliac joints with vacuum phenomenon and endplate eburnation. When today's study is compared to a previous lumbar MR dated 16 December 2011, the numbering system of the lumbar spine is altered due to demonstration that the transitional segment represents a sacralized L5 rather than a lumbarized S1. The postoperative changes and spondylolisthesis at L4-5, previously referred to as L5-S1, are new. The disc abnormalities at L3-4 and L2-3, previous refer to his L4-5 andL3-4, are more prominent on today's study. When today's study is compared to the chest CT of to October 2020 the spinal stimulator leads are noted within the spinal canal to T6, T7, andT8 levels with associated soft tissue thickening in the subcutaneous fat. IMPRESSION: Transitional segment consistent with a sacralized L5, as described. No evidence of overt bone destruction in the visualized spine suggestiveof osteomyelitis. No evidence of rim-enhancing hypodense collections within the visualized spinal canal or paraspinal musculature. Partially visualized spinal stimulator wires within the subcutaneous fat posteriorly at the T10-11 level. The spinal stimulator leads are demonstrated within the spinal canal on the previous chest CT of 12 November 2021 at the T6, T7, T8 levels. Please refer to that report. Ifevaluation of the spinal stimulator leads and that portion of the spine isnecessary from a clinical standpoint, postcontrast thoracic spine CT imaging maybe obtained. 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 There is moderate central canal stenosis at L2-3 and mild central canal stenosis at L3-4. Old postoperative changes at L4-5. Degenerative changes of the sacroiliac joints. > Interpreting Provider: Jayro Clarke MD on 12/17/2021 1:02 PM [place] [facility] CT ORDERA BLES documented in this encounter Visit Diagnoses Diagnosis Acute hematogenous osteomyelitis, unspecified site (HCC) documented in this encounter Administered Medications Inactive Administered Medications - up to 3 most recent administrations Medication Order MAR Action Action Date Dose Rate Site iopamidol (Isovue 370) 76 % contrast Intravenous, CONTRAST ONCE, Starting on Valeri 12/16/21 at 1201, Until 12/17/21 at 0138 $ Given - Contrast 12/16/2021 12:08 PM CDT 100 mL documented in this encounter Care Teams Iron Molder Helper Relationship Specialty Start Date End Date Justen Gale MD PCP - General 07/05/21 documented as of this encounter
--- OUTSIDE RECORDS SUMMARY | 2024-04-26 02:32 | XMS_ITS | Encounter Summary ---
Author Organization [facility] Address [address] [place] [address] Care Team Providers Care Marketing Account Manager Name Role Phone Justen Gale MD Primary Care Provider [phone] Reason for Visit * Reason Comments Establish Care Throat Problem * Evaluate (Routine) - Closed Specialty Diagnoses / Procedures Referred By Elyssa benavides Referred To Contact ENT-Otolaryngology Diagnoses Throat pain Jazmyne Torres MD [address] [place] [address] [facility] [address] [place] [phone] Referral ID Status Reason Start Date Expiration Date V isits Requested Visits Authorized [id number] Closed Specialty Services Required 12/06/2021 12/06/2022 1 1 Encounter Details Date Type Department Care Team (Late st Contact Info) Description 12/14/2021 8:30 AM CDT Office Visit [facility] [address] [place] [phone] Jazmyne Torres MD [address] [place] [address] David Cuevas MD [address] [place] [address] [place] [address] Right ear impacted cerumen (Primary Dx); Throat pain; Dizziness; Benign paroxysmal positional vertigo of right ear Social History Tobacco Use Types Packs/Day Years [...] Sign Reading Time Taken Comments Blood Pressure - - Pulse - - Temperature - - Respiratory Rate 10 12/14/2021 8:23 AM CDT Oxygen Saturation - - Inhaled Oxygen Concentration - - Weight 130.2 kg (287 lb) 12/14/2021 8:23 AM CDT Height 154.9 cm (5' 1 ) 12/14/2021 8:23 AM CDT Body Mass Index 54.23 12/14/2021 8:23 AM CDT documented in this encounter Functional Status [...] No 11/16/2021 documented as of this encounter Patient Instructions * Patient Instructions* Madelyn Huang - 12/14/2021 8:24 AM CDT Thank you for visiting [facility] Otolaryngology - Head & Neck Surgery. We appreciate your confidence in allowing us to participate in your health care. You may receive a survey about your visit with us today. Making our patients happy isn???t just happy talk; it???s ourmission. Please tell us if we made the right impression on you- and how we can serve you better. Please SAVE the information below, it will assist you when it???s time for you to contact us. To MAKE - CHANGE - CANCEL an office appointment If you become ill, need to be seen before your next scheduled appointment, or need to cancel or reschedule an appointment, please call our office at [phone] Monday through Monday from 8:00 am to4:30 pm. You can also request a routine appointment through your virtual [employer] account. Prescription Refills Contact your pharmacy to request all refills. The pharmacy will need to fax the request to us at . Please allow a minimum of 48-72 hours for your prescription to be completed. Medical Emergency / After Hours Contact Information If you have a medical emergency, please call 911 or go to the nearest emergency room. For urgent medical calls, which cannot wait until the office opens, please call the medical exchange at and ask the dairy feed mixing operator to page the ENT physician iron melter. *Caller ID blocking service will need to be turned off for your call to be returned. We also specialize in Hearing Aids, Allergy testing, swallowing disorders, voice problems, cancer diagnosis, and so much more. Visit our website at [email or web address] for information about our practice and an interactive health encyclopedia. documented in this encounter Progress Notes * David Cuevas MD - 12/14/2021 8:31 AM CDT Images from the original note were not included. Chief Complaint Patient presents with ??? Establish Care ??? Throat Problem History of Present Illness HPI 12/14/2021: Karly Marques is a 66 year old female with PMH s/f HTN, chronic??back pain s/p??T8-T9??laminectomy for placement of dorsal column stimulation system and??placement of the battery in the??right??lower lumbar region??(09/16/2021) - explanted 10/2021 because of infection, with plans for replacement, CVA, LUL, DM2, DVT/PE on Xarelto, obesity, breast CA s/p B mastectomy who presents with 1) sore throat, about 3 months of symptoms, no lesions on scope 12/14/21, possibly secondary to sequelae from difficult intubations, improving spontaneously 2) lip lesion, likely neuroma, benign appearing 3) dizziness, likely multifactorial, but at least some contribution from 4) R>L BPPV, positive Edison Halpike to R on 12/14/21 5) R cerumen impaction, debrided today in clinic Throat pain: I had surgery on my back 09/16. They intubated me. They said it was hard. Thick back there. Kind ofcleared up and I have had it ever since. Worse sometimes than other times. Always there. Doesn't gocompletely away. Dealing with so much other stuff, first time I had a chance to address this. My tongue feels like it swells, I have little sores inside and it hurts deep in my throat. Hard to swallow. Vertigo: The last two days, don't know what to do. Really off balance. R ear fullness/cerumen: Got water in my ear really bad. Don't know if that has anything to do with it. From ID: ASSESSMENT & RECOMMENDATIONS: Infected??battery site of spinal stimulation system Extended to complete 6 weeks on 12/11 Unclear etiology of worsening pain ,CRP is coming down, will check ESR today Will call option care for PICC line check ? Chronic throat pain Will refer to ENT ?? UTI Not sure if her incontinence related to UTI while she is on abx with ertapenem. U/A with reflex Ucx From PCP: Patient presents today for hospital follow up DVT due to PICC insertion and complaints of sore throat since August. She has been battling issues since having a spinal cord stimulator placed and then subsequently removed due to infection. She had the PICC removed and replaced. She reports the pain hassubsided and she feels much improved. She saw her surgeon two weeks ago. They are planning on replacement pending clearance from the ID. She saw ID yesterday who is happy with her progress and she will finish IV Ertapenem this week. [place] then have a repeat CT to noted soft tissue swelling at her leads found on CT during 11/11/2021. She has been having a sore throat since her first surgery in August. She was told her throat was thickand she was a difficult intubation. She reports she has had pain on the right side for weeks. It subsided for a short period of time but it returned. She states it returned in September and now she has sores in her mouth. She has severe pain with swallowing, pain with talking, and drinking fluids. She de scribes it as a burning sensation and soreness. No choking. She has been on Pantoprazole. No cough,no rhinorrhea, no PND. Past History Allergies Allergen Reactions ??? Latex Rash ??? [...] Unknown ??? Skin Adhesives Skin Reactions Current Outpatient Medications Medication Sig Dispense Refill ??? acetaminophen (TYLENOL) 500 MG tablet Take 1 (one) tablet by mouth every 8 hours as needed for Fever or Pain Maximum allowable Acetaminophen amount = 4 Grams (4000 mg) / 24 hours. (Patient not taking: Reported on 11/24/2021) ??? amitriptyline (ELAVIL) 25 MG tablet at bedtime ??? exemestane (AROMASIN) 25 MG tablet Take 25 mg by mouth DAILY ??? HUMALOG KWIKPEN 100 UNIT/ML pen Inject 4 (four) Units subcutaneously 3 times daily before mealsfor 30 days 3.6 mL 0 ??? HYDROcodone-acetaminophen (Morrow) 7.5-325 MG tablet Take 1 tablet by mouth every 6 hours as needed for Pain ??? insulin pen needle (B-D ULTRAFINE III SHORT PEN) 31G X 8 MM needle 4 times daily 300 Each PRN ??? Lancets (VUELOGICTOUCH DELICA PLUS 33G EXTRA FINE LANCET) USE FOUR TIMES DAILY ??? LANTUS SOLOSTAR pen Inject 10 (ten) Units subcutaneously once daily for 30 days 3 mL 0 ??? naloxone HCl (NARCAN) 4 MG/0.1ML nasal spray as needed ??? nystatin (Mycostatin) 957743 UNIT/ML suspension Swish and spit 5 mL as directed ??? NYSTOP 636945 UNIT/GM powder APPLY TO THE AFFECTED AREA THREE TIMES DAILY FOR 14 DAYS ??? ONETOUCH ULTRA test strip 4 times daily ??? pantoprazole EC (PROTONIX) 40 MG tablet Take 40 mg by mouth once daily ??? rOPINIRole (REQUIP) 5 MG tablet TAKE 1 TABLET BY MOUTH EVERY NIGHT ??? tiZANidine (ZANAFLEX) 4 MG tablet (Patient not taking: Reported on 12/06/2021) ??? XARELTO 20 MG tablet No current facility-administered medications for this visit. Past Medical History: Diagnosis Date ??? Breast cancer ??? Chest pain ??? DVT (deep venous thrombosis) ??? GERD (gastroesophageal reflux disease) ??? LUL (obstructive sleep apnea) w cpap ??? Other pulmonary embolism without acute cor pulmonale ??? rls ??? Type 2 diabetes mellitus without complications Past Surgical History: Procedure Laterality Date ??? Arthroplasty Right ??? Section ??? Cholecystectomy, Laparoscopic ??? FOOT SURGERY left foot tendon repair ??? Hernia Repair ??? Knee Arthroscopy bilateral ??? Mastectomy ??? REMOVAL HARDWARE/IMPLANT N/A 10/30/2021 N/A; REMOVAL OF INFECTED SPINAL CORD STIMULATOR BATTERY AND PADDLE LEAD-LEVEL 4 @ 1115 ??? Thoracic Spine Laminectomy Right 09/16/2021 Right; [...] file Tobacco Use ??? Smoking status: Former Smoker Packs/day: 0.50 Quit date: 12/05/1977 Years since quittin.0 ??? Smokeless tobacco: Never Used Vaping Use ??? Vaping Use: Never used Substance and Sexual Activity ??? Alcohol use: No ??? Drug use: No ??? Sexual activity: Not on file Other Topics Concern ??? Not on file Social History Narrative ??? Not on file Social Determinants of Health Financial Resource Strain: Not on file Food Insecurity: No Food Insecurity ??? Worried About Running Out of Food in the Last Year: Never true ??? Ran Out of Food in the Last Year: Never true Transportation Needs: Not on file Physical Activity: Not on file Stress: Not on file Social Connections: Not on file Intimate Partner Violence: Not on file Housing Stability: Not on file Unless specifically documented above, history non-contributory to today's visit. Review of Systems A 12 system review was performed and was negative except for: Dizziness, throat pain Physical Examination Resp 10 Ht 5' 1 (1.549 m) Wt 287 lb (130.2 kg) Body mass index is 54.23 kg/m??. Constitutional: Alert, No acute Distress; Well developed/well nourished, obese, uses cane Neuro:cranial nerves III-XII grossly intact, Edison Halpike positive to R CV/Pulm: Normal respirations and peripheral pulses. Eyes: PERRL, EOMI Face/Skin: normal appearance, no lesions/masses Ears: Right: R cerumen, defer Left: Normal external Auditory canal, normal appearance and landmarks of tympanic membrane Nose: patent bilaterally, septum midline, Turbinates intact, Mucosal membranes intact, No drainage or sinus tenderness. Mouth and oropharynx: symmetric tongue mobility, no lesions/masses/ulcers, lips, dentition and gingiva within normal for age, tonsils not enlarged or inflamed, small neuroma on lower lip (3 mm), normal tongue except maybe scar from tooth indentation on R, crowded oropharynx with 3+ tonsils Neck: supple, no lymphadenopathy, no masses, no palpable thryoid, ?some petechiae Voice: strong MusculoSkeletal: moves all extremities well Procedure Note For all procedures, attending was present and performed the pinzon portions of the procedure. Procedure Note Anesthesia: Lidocaine 2% and Nadir-Synephrine 1/2% Endoscopy Type: Flexible Phimo-Finthxkfwdkyli-Irrravouhibz Procedure Details: Informed consent was obtained. The patient was placed in the sitting position. After topical anesthesia and decongestion, the 4 mm laryngoscope was passed. The nasal cavities, nasopharynx, oropharynx, hypopharynx, and larynx were all examined. Vocal cords were examined during respiration and phonation. The following findings were noted: Normal nasal cavity. Adenoids obstructing 5% of postnasal space (normal less than 40%). Tonsils similarly large from above, otherwise normal nasopharynx, oropharynx, hypopharynx, and larynx. Good TVC mobility bilaterally. The patient tolerated procedure well. Complications: None Labs/Imaging: I have reviewed pertinent images and labs and these are my findings: none CT angio chest - Images and read reviewed. Imaging does not go to vocal cords. DATE: 11/12/2021 12:54 AM ?? EXAMINATION: Computed tomography (CT) of the chest with contrast ?? TECHNIQUE: CT of the chest was performed following the uneventful administration of 100 mL of Isovue 370 intravenous contrast according to a pulmonary embolism protocol. Multiplanar reconstructions were created. ?? Clinical Information ?? HISTORY: R07.9: Chest pain, unspecified type R06.02: SOB (shortness of breath) ?? COMPARISON: None. ?? Findings ?? Study Quality This examination for the diagnosis of pulmonary embolism is: suboptimal. ?? Lines/Tubes: None. ?? Pulmonary Vessels: There is mild motion artifact Eccentric apparent ill-defined peripheral filling defect in the left upper lobar artery (series 5, image 78) is favored to be artifactual or may represent chronic pulmonary embolism. ?? Lower neck and axillae: Multiple bilateral subcentimeter, partially calcified thyroid nodules. ?? Mediastinum and Korin: 1 cm prevascular lymph node (series 5, image 74). Multiple other subcentimeter lymph nodes. ?? Heart and Pericardium: The cardiac chambers are normal in size. No pericardial fluid or thickening is present. Mitral annular calcifications are seen. ?? Lung Parenchyma, Airways, and Pleural Spaces: Subpleural opacities along the left lingula, some of which appear nodular. Multiple solid nodules in the left lower lobe nodule to 4 mm (series 6, images 60-61). Trace left pleural effusion. New loculated foci of gas in the medial left lower lobe (series 6, image 59) may represent a new pneumatocele. ?? Bones and Soft Tissue: Postoperative changes of [...] series 564 measuring 3.3 x 2.8 cm. ?? Upper Abdomen: Gallbladder is surgically absent. A 1.4 cm hypodense lesion in the right interpolar region likely represents a cyst (series 5, image 274). ? Impression: ?? 1.No pulmonary embolism. Apparent ill-defined high density [...] which could be postsurgical with possible superinfection. ?? Findings were discussed with Dr. Norman by Dr. Lopez at 1:41 AM on 11/12/2021 via telephone with readback comprehension and verification. Assessment Karly Marques is a 66 year old female with PMH s/f HTN, chronic??back pain s/p??T8-T9??laminectomy for placement of dorsal column stimulation system and??placement of the battery in the??right??lower lumbar region??(09/16/2021) - explanted 10/2021 because of infection, with plans for replacement, CVA, LUL, DM2, DVT/PE on Xarelto, obesity, breast CA s/p B mastectomy who presents with 1) sore throat, about 3 months of symptoms, no lesions on scope 12/14/21, possibly secondary to sequelae from difficult intubations, improving spontaneously 2) lip lesion, likely neuroma, benign appearing 3) dizziness, likely multifactorial, but at least some contribution from 4) R>L BPPV, positive Edison Halpike to R on 12/14/21 5) R cerumen impaction, debrided today in clinic Plan 1. Noble Daroff exercises. 2. FU with involved services including ID, NSGY. 3. Continue good sleep hygiene, including ongoing efforts towards weight loss, regular exercise, avoiding alcohol and caffeine near bed times, keeping as regular a sleep schedule as possible, etc. 4. FU with ENT in 6 weeks. Depending on interval symptoms, exam, we may consider watchful waiting, additional medications, PT referral (for BPPV). Today, pt with many throat, oral, and ear symptoms, reassuring scope, likely R BPPV. David Cuevas MD 12/14/2021 9:26 AM documented in this encounter Procedure Notes * David Cuevas MD - 12/14/2021 8:58 AM CDTAssociated Order(s): PROC ENDOSCOPY-LARYNX Pre-Procedure Diagnose(s): Throat pain; Right ear impacted cerumen; Dizziness Procedure Note Anesthesia: Lidocaine 2% and Nadir-Synephrine 1/2% Endoscopy Type: Flexible Abbcj-Gkveeyvrvgubvk-Rezktwdxbglb Procedure Details: Informed consent was obtained. The patient was placed in the sitting position. After topical anesthesia and decongestion, the 4 mm laryngoscope was passed. The nasal cavities, nasopharynx, oropharynx, hypopharynx, and larynx were all examined. Vocal cords were examined during respiration and phonation. The following findings were noted: Normal nasal cavity. Adenoids obstructing 5% of postnasal space (normal less than 40%). Tonsils similarly large from above, otherwise normal nasopharynx, oropharynx, hypopharynx, and larynx. Good TVC mobility bilaterally. The patient tolerated procedure well. Complications: None documented in this encounter Plan of Treatment Not on file documented as of this encounter Procedures Procedure Name Priority Date/Time Associated Diagnosis Comments PROC ENDOSCOPY-LARYNX Routine 12/14/2021 8:58 AM CDT Throat pain Right ear impacted cerumen Dizziness documented in this encounter Results * PROC ENDOSCOPY-LARYNX (12/14/2021 8:58 AM CDT) Narrative David Cuevas MD - 12/14/2021 8:58 AM CDT David Cuevas MD ? 12/14/2021 ??9:28 AM Procedure Note Anesthesia: Lidocaine 2% and Nadir-Synephrine 1/2% Endoscopy Type: ??Flexible Ottki-Eihfqinwjcylwi-Rkjaejhxqlpx Procedure Details: Informed consent was obtained. ??The [...] David Cuevas MD PROCEDURE/MINOR S URGICAL ORDERABLES documented in this encounter Visit Diagnoses Diagnosis Right ear impacted cerumen- Primary Impacted cerumen Throat pain Dizziness Dizziness and giddiness Benign paroxysmal positional vertigo of right ear documented in this encounter Care Teams Marketing Account Manager Relationship Specialty Start Date End Date Justen Gale MD PCP - General 07/05/21 documented as of this encounter
--- OUTSIDE RECORDS SUMMARY | 2024-04-26 02:32 | XMS_ITS | Encounter Summary ---
Author Organization [facility] Address [address] [place] [address] Care Team Providers Care Rehab Liaison Name Role Phone Justen Gale MD Primary Care Provider [phone] Reason for Visit * Reason Comments Follow-up Surgical discussion Encounter Details Date Type Department Care Team (Late st Contact Info) Description 04/04/2022 3:30 PM REHAB LIAISON Office Visit [facility] Neurosurgery [address] [place] [address], [address] [place] [address] Maxi Gregg MD [facility] [place] [address] Infection of spinal cord stimulator, sequela (Primary Dx); Urinary tract infection with hematuria, site unspecified Social History Tobacco Use Types Packs/Day [...] Sign Reading Time Taken Comments Blood Pressure 143/75 04/04/2022 3:27 PM REHAB LIAISON Pulse 90 04/04/2022 3:27 PM REHAB LIAISON Temperature - - Respiratory Rate - - Oxygen Saturation 98% 04/04/2022 3:27 PM REHAB LIAISON Inhaled Oxygen Concentration - - Weight - [...] this encounter Patient Instructions * Patient Instructions* Shaun Larkin RN - 04/04/2022 3:40 PM REHAB LIAISON Follow up with urology Call and get appointment with us once cleared by urology- get labs done when you come for appt withUtttei Please call Shaun at [phone] with any questions Alternatively you can send us a My Chart message If needed, our fax number is [phone] For any scheduling needs please call [phone] B LIAISON documented in this encounter Progress Notes * Melly Banks APRN-NETTA - 04/04/2022 3:48 PM CST Neurosurgery Clinic Progress Note Chief Complaint (CC): SCS consult HISTORY OF PRESENT ILLNESS (HPI): Patient is a 66 year old female with a PMH of breast cancer s/p mastectomy, recurrent PE/DVT, DM 2,RLS, and chronic axial low back pain s/p??T9-8 laminectomy for dorsal root column stimulator placement with [employer] system on 09/16/21, who presents to clinic today to discuss replacement of the battery of her dorsal column spinal stimulator. Patient presented to [facility] as a transfer on 10/30/21 with pain around her incision with associated fevers and wound drainage. CT AP demonstrated increased fat stranding. She ultimately underwent removal of battery in the right lower lumbar region with irrigation of wound on 10/30/[address] Gregg, followed by IV antibiotics per ID. Patient returned to the ED on 11/11/2021 with sudden SOB and lung CT incidentally found thickening of soft tissue around spinal cord stimulator leads. Pt subsequently diagnosed with pulmonary embolism and started on heparin gtt. Patient presents to clinic accompanied by Theresa ford. She reports she completed her IV abx in 12/13 and denies any issues with her SCS incisions. She does report frequent UTIs (every 3-4 weeks) and she's currently suffering from one now. She plans to contact her PCP or visit her local ED for management of her current UTI. PMH: Past Medical History: Diagnosis Date ??? Breast cancer (CMS/HCC) ??? Chest pain ??? DVT (deep venous thrombosis) (CMS/HCC) ??? GERD (gastroesophageal reflux disease) ??? LUL (obstructive sleep apnea) w cpap ??? Other pulmonary embolism without acute cor pulmonale (CMS/HCC) ??? rls ??? Type 2 diabetes mellitus without complications (CMS/HCC) PSH: Past Surgical History: Procedure Laterality Date [...] REGION Meds: Current Outpatient Medications Medication ??? amitriptyline (ELAVIL) 25 MG tablet ??? exemestane (AROMASIN) 25 MG tablet ??? HumaLOG KwikPen 100 UNIT/ML pen ??? HYDROcodone-acetaminophen (Lind) 7.5-325 MG tablet ??? insulin pen needle (B-D ULTRAFINE III SHORT PEN) 31G X 8 MM needle ??? Lancets (ONETOUCH DELICA PLUS 33G EXTRA FINE LANCET) ??? Lantus SoloStar pen ??? naloxone HCl (NARCAN) 4 MG/0.1ML nasal spray ??? ONETOUCH ULTRA test strip ??? oxybutynin (Ditropan) 5 MG tablet ??? rOPINIRole (REQUIP) 5 MG tablet ??? XARELTO 20 MG tablet No current [...] Tobacco Use ??? Smoking status: Former Packs/day: 0.50 Types: Cigarettes Quit date: 12/05/1977 Years since [...] see HPI Behavioral/Psych: Negative PHYSICAL EXAM BP 143/75 Pulse 90 SpO2 98% General: NAD Cardiovascular: warm, well profused Respiratory: non-labored breathing Abdominal: Soft, non tender, non distended Integument: thoracic and right lumbar incisions completely healed Vascular: capillary refill <3 seconds Neuro: Mental status: Alert, attentive, and oriented x3 (name, place, date). Speech is clear and fluent. Motor: Muscle bulk and tone are normal. Hip Flexor Quad Hamstring Tib Ant Gastroc EHL Right 4+ 5 5 5 5 5 Left 4+ 5 5 5 5 5 Pain related weakenss Reflexes: No Clonus Patellar Right 1+ Left 1+ Sensory: Light touch intact in lower extremities Coordination: No fasciculations Gait/Stance: slow antalgic gait RADIOLOGY: No new imaging Assessment/Plan: Karly Marques is a 66 year old female with history of chronic axial low back pain s/p??T9-8 laminectomy for dorsal root column stimulator placement with [employer] system on 09/16/21??by Dr. Gregg, c/b stimulator batter infection s/p washout and stimulator battery removal on??10/30/21 followed by IV antibiotics per ID, who presents to clinic today for a discussion regarding replacement of battery. The patient is doing overall well but endorses frequent UTIs. Explained to patient prior to replacing battery, we need to ensure she is free of infection. She is referred to urology to help manage her frequent UTIs. Once her UTIs are managed, she is to follow up with Dr. Gregg to discuss replacing battery with inflammatory labs prior. Melly Banks APRN-NETTA 04/04/2022 3:48 PM CC: Justen Gale MD (PCP) B LIAISON documented in this encounter Plan of Treatment Not on file documented as of this encounter Procedures Procedure Name Priority Date/Time Associated Diagnosis Comments URINALYSIS AUTO - POINT OF CARE (AMB) [facility] Routine 04/04/2022 Urinary tract infection with hematuria, site unspecified documented in this encounter Results * URINALYSIS AUTO - POINT OF CARE (AMB) [facility] (04/04/2022) Glucose UA - Bilirubin UA POCT - Ketones UA POCT - Specific Rogers UA 1.020 Blood Urine POCT 3+ pH UA 6.5 Protein UA 2+ Urobilinogen UA - Nitrite UA + WBC UA 3+ Urine URINE / Unknown 04/04/2022 Maxi Gregg MD LAB - POINT OF C ARE ORDERABLES documented in this encounter Visit Diagnoses Diagnosis Infection of spinal cord stimulator, sequela- Primary Urinary tract infection with hematuria, site unspecified documented in this encounter Care Teams Rehab Liaison Relationship Specialty Start Date End Date Justen Gale MD PCP - General 07/05/21 documented as of this encounter
--- OUTSIDE RECORDS SUMMARY | 2024-04-26 02:32 | XMS_ITS | Encounter Summary ---
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 Needs clearance to stop Xarelto Hold Asprin and NSAIDs 7 days prior to surgery -no Motrin, Advil, Naproxen, Aleve, [place], Meloxicam, Ibuprofen, Fish Oil , Celebrex For any questions please call Angeline [phone] documented in this encounter Plan of Treatment Not on file documented as of this encounter Visit Diagnoses Not on filedocumented in this encounter Care Teams Dermatology Nurse Relationship Specialty Start Date End Date Justen Gale MD PCP - General 07/05/21 documented as of this encounter
--- OUTSIDE RECORDS SUMMARY | 2024-04-26 02:32 | XMS_ITS | Encounter Summary ---
Author Organization [facility] Address [address] [facility] [place] [address] Care Team Providers Care Telehealth Nurse Educator Name Role Phone Justen Gale MD Primary Care Provider [phone] Reason for Visit * Auth/Cert (Routine) Specialty Diagnoses / Procedures Referred By Contac t Referred To Contact Diagnoses Diagnosis unknown Diagnosis unknown [R69] Procedures [place] INSRT/REPL SPINAL NEUROSTIM PULSE GEN/RECV INSERTION/REPLACEMENT SPINAL CORD STIMULATOR Referral ID Status Reason Start Date Expiration Date Visits Re quested Visits Authorized [id number] 1 1 Encounter Details Date Type Department Care Team (Latest Contact Info) Description 02/16/2023 10:43 AM CDT - 02/16/2023 5:55 PM CDT Hospital Encounter [facility] [address] [place] [address] Maxi Gregg MD [facility] [place] [id number] Surgery General Discharge Disposition: Home or Self Care Social History Tobacco Use Types Packs/Day Years Used Date Smoking Tobacco: Former Cigarettes Q uit: 12/05/1977 Smokeless Tobacco: Never Tobacco Cessation:Counseling Given: Yes Alcohol Use Standard Drinks/Week Comments No 0 (1 standard drink = 0.6 oz pur e alcohol) AUDIT-C Answer Date Recorded Q1: How often do you have a drink containing alcohol? Never 02/16/2023 Q2: How many drinks containi ng alcohol do you have on a typical day when you are drinking? Patient does not drink Q3: How often do you have si x or more drinks on one occasion? Never 02/16/2023 Overall Financial Resource Strain (CARDIA) Answe r Date Recorded How hard is it for you to pa y for the very basics like food, housing, medical care, and heating? Not hard at all 12/23/2022 [facility] - Occupational Stress Questionnaire Answer Date Recorded [...] in a skilled nursing (including now)? No 12/23/2022 Sex and Gender Information Value Date Recorded Sex Assigned at Not on file Gender Identity Not on file Sexual Orientation Not on file documented as of this encounter Last Filed Vital Signs Vital Sign Reading Time Taken Comments Blood Pressure 136/71 02/16/2023 4:42 PM CDT Pulse 87 02/16/2023 4:42 PM CDT Temperature 36.7 ??C (98.1 ??F) 02/16/2023 2:35 PM CD T Respiratory Rate 16 02/16/2023 4:42 PM CDT Oxygen Saturation 95% 02/16/2023 4:42 PM CDT Inhaled Oxygen Concentration - - Weight 124.7 kg (275 lb) 02/16/2023 12:01 PM CDT Height 154.9 cm (5' 1 ) 02/16/2023 12:01 PM CDT Body Mass Index 51.96 02/16/2023 12:01 PM CDT documented in this encounter Functional [...] No 12/23/2022 documented as of this encounter Discharge Instructions * Discharge Instructions* Melly Banks, ZAMZAM-PIPE FOREMAN - 02/16/2023 1:56 PM CDT Spine Surgery Patient Discharge Instructions Patient Discharge Instructions Summary: - FOLLOW UP: Please plan to follow-up with Dr. Gregg's Nurse Practitioner (Melly Banks, WARDROBE MANAGER) in 2-3 weeks. You will be contacted with a future appointment date or you may call [phone] to schedule an appointment yourself. The appointment will be located at the [facility], which is the building directly east of [facility], at [address] [place] [address] [address]. Please arrive about 15 minutes early for your appointment in order to expedite the registration process. - QUESTIONS/ISSUES: please call Angeline (Dr. Gregg's nurse) at [phone] - ACTIVITY: Activity as tolerated --Avoid heavy lifting greater than 10 lbs --Avoid repetitive bending, lifting and twisting - DIET: resume your normal diet unless otherwise advised by your PCP - ANTICOAGULATION: you may resume your Xarelto on Monday, February 27 - WOUND CARE: --Your wound has been sutured closed with absorbable sutures which do not need to removed (they will absorb over time). The sutures have been covered with skin glue. Do not pick at this - it will fall off naturally. Your incisions have then been covered with a special dressing. This dressing can beremoved on February 18 --OK to shower starting on February 18. Remove your dressings, then you may shower with mild soap and water and pat the area of your incisions dry; do not rub the area of your incisions. --DO NOT soak in a tub until the wound is completely healed and you're cleared to do so by your surgeon. --Always wash your hands with soap and water before and after changing your dressing. --Always keep your surgical incision/dressing clean and dry. If you experience increasing pain at your incision site, redness, swelling, increasing discharge, foul odors, or fevers (greater than 100.4) and chills you should call the neurosurgery office. If you feel this is an emergency you should be evaluated in [facility] - HOME MEDICATION: --Resume your home medications as before unless directed otherwise - PAIN MEDICATION: --For mild to moderate pain, please take Acetaminophen as instructed --Please reserve narcotic medication for severe pain --Please take colace for constipation when taking narcotic medications --Please do not exceed 3,000 mg of Acetaminophen in a 24 hour period --No driving while taking prescription pain medications --Do not drink alcohol or take tranquilizers while taking prescription pain medications --Do not take medicine that has not been prescribed by your provider --Avoid anti-inflammatories such as Aleve or Ibuprofen PRESCRIPTION PAIN MEDICATION INFORMATION: - When at home, alternate Tylenol and narcotic medications like morphine, Dilaudid, oxycodone, etc for better control of breakthrough pain. Alternating between the two medications helps with pain coverage for breakthrough pain. - Do not drink alcohol while taking prescription pain medicine. - Do not drive any motor vehicles while taking prescription pain medicines or any medicines that make you sleepy. - Take the medicine at the time of the day when you most often feel pain. This may be: when you wake up in the morning, before you start certain activities, or when you are ready for bed. Cutting back strategies: - As your pain decreases, you can go for longer times between doses (from 4 hours to 6 or 8 hours).Or take one pill instead of two, especially for narcotic medications. - Start decreasing pain medicine as your pain decreases. Tylenol: - For better pain relief alternate acetaminophen (Tylenol) and narcotic medications like morphine, dilaudid, oxycodone, etc. Alternating helps with coverage for breakthrough pain. - Many pain medicines, like Tylenol??, have acetaminophen. Do not take more than 3,000 milligrams (3 grams) of acetaminophen in 24 hours (more than that could damage your liver) - Acetaminophen is also found in cough and cold medicines. What if the above strategies do not control my pain? - If none of the above solutions help, contact your surgeon as needed. documented in this encounter Medications at Time [...] mouth once daily 07/17/2022 05/19/2023 HYDROcodone-acetaminoph en ([place]) 10-325 MG tablet Take 1 (one) tablet by mouth every 8 hours as needed for Pain Takes 3-4 times a day 05/20/2023 hydrOXYzine HCl (Atarax) 25 MG tabletIndications:Chron ic bladder pain Take 1 (one) tablet by mouth 2 times daily 30 tablet 2 06/08/2022 02/23/2023 methenamine hippurate (Hiprex) 1 GM tablet TAKE [...] once daily 90 tablet 4 08/15/2022 03/08/2024 trospium (Sanctura) 20 MG tablet Take 1 (one) tablet by mouth 2 times daily 60 tablet 2 06/08/2022 03/06/2023 XARELTO 20 MG tablet 11/08/2021 023 documented as of this encounter Progress Notes * Brenda Hou RN - 02/16/2023 12:22 PM CDT Blood sugar 175. Notified Dr. Zamora and he stated no need to treat. No new orders at this time. documented in this encounter H&P Notes * Melly Banks APRN-CNP - 02/16/2023 11:23 AM CDT Neurosurgery Preoperative History and Physical Name: Mohsen Salazar : 1955 Date of Admission:(Not on file) HISTORY OF PRESENT ILLNESS (HPI): Patient is a 67y/o female, w/ PMH of DVT/PE (on Xarelto), GERD, DM and LUL, who presents today for placement of new battery in the left lumbar region are well as connection with her paddle and wire system with Dr. Gregg. Patient has a history of refractory axial low back pain who was submitted to a T8-T9 laminectomy for placement of a dorsal column stimulation system and placement of the batteryin the right lumbar region by Dr. Gregg on 09/16/2021. Unfortunately, the patient progressed with an infection at the site of the battery and was submitted to removal of the battery in the right lumbar region by me on 10/30/2021. Her recurrent UTIs are now managed by urology. [facility] NEURO SPINAL SURGERY HIGH RISK VARIABLES - n/a Denies recent fevers, chills, chest pain, shortness of breath. Denies use of anticoagulants in past 7 days. Last dose Xarelto 02/11/23. Past Medical History: Diagnosis Date ??? Breast [...] mouth DAILY HumaLOG KwikPen 100 UNIT/ML pen HYDROcodone-acetaminophen ([place]) 7.5-325 MG tablet Take 1 (one) tablet [...] TAKE 1 TABLET BY MOUTH TWICE DAILY naloxone HCl (NARCAN) 4 MG/0.1ML nasal spray as needed ONETOUCH ULTRA test strip 4 times daily oxyBUTYnin CR 24hr (Ditropan XL) 15 MG tablet Take 1 (one) tablet by mouth once daily rOPINIRole (REQUIP) 5 MG tablet TAKE 1 TABLET BY MOUTH EVERY NIGHT trospium (Sanctura) 20 MG tablet Take 1 (one) tablet by mouth 2 times daily XARELTO 20 MG tablet No current facility-administered medications for this encounter. Current Outpatient Medications Medication ??? amitriptyline (ELAVIL) 25 MG tablet ??? amLODIPine (Norvasc) 5 MG tablet ??? ascorbic acid (Vitamin C) 500 MG tablet ??? exemestane (AROMASIN) 25 MG tablet ??? HumaLOG KwikPen 100 UNIT/ML pen ??? HYDROcodone-acetaminophen ([place]) 7.5-325 MG tablet ??? hydrOXYzine HCl (Atarax) 25 MG tablet ??? insulin pen needle (B-D ULTRAFINE III SHORT PEN) 31G X 8 MM needle ??? Lancets (ONETOUCH DELICA PLUS 33G EXTRA FINE LANCET) ??? Lantus SoloStar pen ??? methenamine hippurate (Hiprex) 1 GM tablet ??? naloxone HCl (NARCAN) 4 MG/0.1ML nasal spray ??? ONETOUCH ULTRA test strip ??? oxyBUTYnin CR 24hr (Ditropan XL) 15 MG tablet ??? rOPINIRole (REQUIP) 5 MG tablet ??? trospium (Sanctura) 20 MG tablet ??? XARELTO 20 MG tablet Social History Tobacco Use ??? [...] Neurological: see HPI Behavioral/Psych: Negative PHYSICAL EXAM Ht 1.549 m (5' 1 ) Wt 124.7 kg (275 lb) General: NAD Cardiovascular: warm, well perfused Respiratory: non-labored breathing Abdominal: S, NT, ND Vascular: capillary refill <3 seconds Neuro: alert, oriented x 3 (name, place date) Hip Flexor Quad Hamstring Tib Ant Gastroc EHL Right 5 5 5 5 5 5 Left 5 5 5 5 5 5 Patellar Right 1+ Left 1+ LABORATORY Recent Labs Component Name 02/06/23 1331 WBC 8.9 HGB 14.6 HCT 45.5 PLTCOUNT 264 Recent Labs Component Name 02/06/23 1331 12/26/22 0132 NA - 136 POTASSIUM 3.7 3.9 CHLORIDE 103 - CO2 25 26 BUN 13 12 CREATININE 0.93 0.62 GLUCOSE 258* 181* Recent Labs Component Name 02/06/23 1330 INR 2.5* UA 02/06/23: wnl RADIOLOGY N/A Plan: - To the OR today with Dr. Gregg for placement of new battery in the left lumbar region are well as connection with her paddle and wire system. - The risks and benefits of the procedure were discussed in detail, including: pain, bleeding, weakness, paralysis, hardware failure, failure to improve and infection - The patient expressed understanding and willingness to proceed. - Consent to be obtained - Plan for Vanc (given Ceftriaxone anaphylaxis allergy and Clinda shortage) as preop abx - Proceed to OR when ready - Dispo: home Melly BanksZAMZAM-PIPE FOREMAN 02/16/2023 11:23 AM Ascom Pager documented in this encounter OR Notes * Brief Op Note - Tyler Nguyen MD - 02/16/2023 1:40 PM CDT Brief Op Note Procedure: PLACEMENT OF NEW BATTERY IN THE LEFT LUMBAR REGION WELL CONNECTION WITH HER PADDLEAND WIRE SYSTEM Patient Name: Mohsen Salazar Date of Service: 02/16/2023 Pre-Op Diagnosis: S/p removal of battery of spinal stimulation Post-Op Diagnosis: same Surgeon(s) and Role: * Maxi Gregg MD - Primary * Tyler Nguyen MD - Assisting Resident Anesthesia Type: general ETT Complications: none Findings: existing spinal cord stimulator leads EBL: 25 mL Specimen(s): * No specimens in log * Implant(s): Implant Name Type Inv. Item Serial No. Direct Selling Counselor Lot No. LRB No. Used Action Proclaim Plus 5 [id number] Savage Spine Left 1 Implanted Tyler Nguyen MD * Operative - Maxi Gregg MD - 02/16/2023 1:40 PM CDT ??Operative Report ?? PATIENT NAME:??MOHSEN SALAZAR ? DATE OF :?02/16/2023? CSN: [id number] ?? DATE OF ADMISSION: ??02/16/2023?INTRAOP DATE OF OPERATION: ??02/16/2023? PREOPERATIVE DIAGNOSIS: S/p removal of battery of spinal stimulation ?? POSTOPERATIVE DIAGNOSIS: S/p removal of battery of spinal stimulation ?? PROCEDURE PERFORMED: Placement of new battery of spinal stimulation in the left lumbar region and connection with the wires previously coiled in the right lumbar region. ?? SURGEON: Maxi Gregg M.D. ?? FIELD SPEC: Tyler Nguyen MD ?ANESTHESIA: General anesthesia. ?? INTRAOPERATIVE BLOOD LOSS: 20??mL. ?? COMPLICATIONS: No intraoperative complications. ?? HARDWARE: Savage - Burst DR ?? PROCEDURE: The patient under anesthesia was placed in prone position on??a??Mundo table. ?? The wounds in the right??lower and left lower lumbar region??were??prepped and draped. ??Then, a transverse incisionof approximately 3 cm was performed in the??right lower lumbar region??over the previous incisoin. Photon blade was used for dissection of the subcutaneous tissue??until??visualization of the coiled wires. Then a transverse incision of approximately 6 cm was performed in the??left lower lumbar. Photon blade was used for dissection of the subcutaneous tissue and creation of a subcutaneous pocket to allocate the battery. Then the wires were tunneled from the right lumbar to the left lumbar regionand connected to the battery. There was initially high impedance in multiple contacts. After multiple manipulation it was possible to obtain good impedance in most contacts, except for 2 which still presented high impedance. The wires were??finally tightened??inside the battery??and??the battery was??inserted??into the left lower lumbar region??and sutured to it??with a Prolene 2.0. Vancomycin powder was placed superficially over the wound.??Then, the left??lower lumbar region wound was closed by layers of Vicryl #1 for the deep subcutaneous tissue, Vicryl 2-0 for the proximal subcutaneous tissue??and??Monocryl Stratafix??2-0 for the skin. ??The right lumbar wound was copiously irrigated with Irrisept.Vancomycin powder was placed superficially over the wound.??Then, the right lower lumbar region wound was closed by layers of Vicryl #1 for the deep subcutaneous tissue, Vicryl 2-0 for theproximal subcutaneous tissue??and??Monocryl Stratafix??2-0 for the skin. The wounds were dressed with Exophyn and island dressings. documented in this encounter Plan of Treatment Not on file documented as of this encounter Procedures Procedure Name Priority Date/Time Associated Diagnosis Comments CARDIAC RHYTHM STRIP ORDER 02/20/2023 5:39 PM CDT GLUCOSE - POINT OF CARE Routine 02/16/2023 2:43 PM CDT MN INS/RPLCMT SPI NPGR POCKET 02/16/2023 12:41 PM CDT Diagnosis unknown Special Needs NEEDS C-ARM, SAVAGE REP (RODRÍGUEZ [phone]) NOTIFIED PER OFFICE(ANGELINE) 02/01 TM / SURGEON WANTS PATIENT IN PRONE POSITION FOR PROCEDURE Savage rep (Rodríguez) confirmed case - DL-W 02-08 PT-INR STAT 02/16/2023 12:20 PM CDT Preop examination GLUCOSE - POINT OF CARE Routine 02/16/2023 12:13 PM CDT documented in this encounter Results * CARDIAC RHYTHM STRIP ORDER (02/20/2023 5:39 PM CDT) Narrative 02/20/2023 5:39 PM CDT Ordered by an unspecified provider. Scanned Document CARDIAC SERVICES ORD ERABLES * (ABNORMAL) GLUCOSE - POINT OF CARE (02/16/2023 2:43 PM CDT) Glucose WB/POC 160(H) 70 - 106 mg/dL 02/16/2023 2:[address] [facility] Specimen Type Cap Fingerstick 2022 2:[address] [facility] Blood BLOOD SPECIMEN / Unknown 02/16/2023 2:43 PM CDT 02/16/2023 2:50 PM CDT Maxi Gregg MD LAB - POINT OF C ARE ORDERABLES [facility] [address] [place] [address] * (ABNORMAL) PT-INR (02/16/2023 12:20 PM CDT) PT 15.0(H) 12.1 - 14.8 sec 02/16/2023 1:[address] [facility] INR 1.2(H) 0.9 - 1.1 02/16/2023 1:[address] [facility] Blood BLOOD SPECIMEN / Unknown Venipuncture / Unknown 02/16/2023 12:20 PM CDT 02/16/2023 12:30 PM [address] [facility] - 02/16/2023 1:14 PM CDT Conventional Warfarin Anticoagulant Therapy: INR Reference Range: ??2.0-3.0 Intensive Warfarin Anticoagulant Therapy: INR Reference Range: ? 2.5-3.5 Melly Banks EQUIPMENT OPERATING ENGINEER-PIPE FOREMAN LAB - COAGULATIO N ORDERABLES [facility] [address] [place] [address] * (ABNORMAL) GLUCOSE - POINT OF CARE (02/16/2023 12:13 PM CDT) Glucose WB/POC 175(H) 70 - 106 mg/dL 02/16/2023 12:[address] [facility] Specimen Type Cap Fingerstick 2022 12:[address] [facility] Blood BLOOD SPECIMEN / Unknown 02/16/2023 12:13 PM CDT 02/16/2023 12:21 PM CDT Maxi Gregg MD LAB - POINT OF C ARE ORDERABLES Performing Organization Address City/[facility]/ZIP Co de Phone Number [facility] [address] [place] [address] documented in this encounter Visit Diagnoses Diagnosis S/P insertion of spinal cord stimulator- Primary Preop examination Preoperative examination, unspecified documented in this encounter Administered Medications Inactive Administered Medications - up to 3 most recent administrations Medication Order MAR Action Action Date Dose Rate Site 0.9% NaCl injection 1-10 mL 1-10 mL, Intracatheter, PRN, Other, peripheral line flush, Starting on Valeri 02/16/23 at 1127, Until Valeri 02/16/23 at 1858, Flush peripheral IV catheter with 1-10 mL of normal saline before and after medications and prn to clear blood from the line or to verify patency., Pre-op 0.9% NaCl injection 3 mL 3 mL, Intracatheter, EVERY 8 HOURS, First dose on Valeri 02/16/23 at 1400, Until Discontinued, Flush peripheral IV catheter with 3 mL of normal saline every 8 hours., Pre-op acetaminophen (Tylenol) tablet 1,000 mg 1,000 mg, Oral, EVERY 4 HOURS PRN, Mild Pain, Starting on Valeri 02/16/23 at 1157, Until Valeri 02/16/23 at 1858, Patient preference for lesser PRN pain meds may be honored when the patient requests a less strong medication, a lower dose, or a less intrusive route of administration when the lesser drug, dose and route have been ordered for the patient. This patient request must be documented in the MAR. $ Given 02/16/2023 11:58 AM CDT 1,000 mg fentaNYL (PF) (Sublimaze) injection 50 mcg 50 mcg, Intravenous, EVERY 3 MIN PRN, Mild Pain, Starting on Valeri 02/16/23 at 1432, Until Valeri 02/16/23 at 1858, Maximum total of 4 doses. If patient reaches max total dose, please consult anesthesiologist prior to further administration of pain meds. Hold pain meds if there are signs of hypoventilation. Patient preference for lesser PRN pain meds may be honored when the patient requests a less strong medication, a lower dose, or a less intrusive route of administration when the lesser drug, dose and route have been ordered for the patient. This patient request must be documented in the MAR., PACU HYDROcodone-acetaminophen ([place]) 7.5-325 MG tablet 1 tablet 1 tablet, Oral, POST-OP ONCE, 1 dose, On Valeri 02/16/23 at 1615, Patient preference for lesser PRN pain meds may be honored when the patient requests a less strong medication, a lower dose, or a less intrusive route of administration when the lesser drug, dose and route have been ordered for the patient. This patient request must be documented in the MAR. $ Given 02/16/2023 4:05 PM CDT 1 tablet HYDROmorphone (Dilaudid) injection 0.5 mg 0.5 mg, Intravenous, EVERY 5 MIN PRN, Severe Pain, Starting on Valeri 02/16/23 at 1432, Until Valeri 02/16/23 at 1858, Maximum total of 4 doses If patient reaches max total dose, please consult anesthesiologist prior to further administration of pain meds. Hold pain meds if there are signs of hypoventilation. Patient preference for lesser PRN pain meds may be honored when the patient requests a less strong medication, a lower dose, or a less intrusive route of administration when the lesser drug, dose and route have been ordered for the patient. This patient request must be documented in the MAR., PACU $ Given 02/16/2023 3:06 PM CDT 0.5 mg $ Given 02/16/2023 2:58 PM CDT 0.5 mg $ Given 02/16/2023 2:39 PM CDT 0.5 mg lactated ringers infusion at 20 mL/hr, Intravenous, PRE-OP CONTINUOUS, Starting on Valeri 02/16/23 at 1145, Until Valeri 02/16/23 at 1858, Pre-op $ New Bag/Syringe 02/16/2023 11:55 AM CDT 20 mL/hr lactated ringers infusion at 125 mL/hr, Intravenous, CONTINUOUS, Starting on Valeri 02/16/23 at 1445, Until Valeri 02/16/23 at 1858, PACU lidocaine PF (Xylocaine MPF) 1 % injection 0.2 mL 0.2 mL, Infiltration, PRE-OP MULTIPLE, 3 doses, Starting on Valeri 02/16/23 at 1134, Until Valeri 02/16/23 at 1858, May be used (0.2 ml locally to anesthetize prior to insertion)., Pre-op methocarbamol (Robaxin) tablet 500 mg 500 mg, Oral, POST-OP ONCE, 1 dose, On Valeri 02/16/23 at 1645 $ Given 02/16/2023 4:52 PM CDT 500 mg morphine injection 2 mg 2 mg, Intravenous, EVERY 15 MIN PRN, Moderate Pain, 5 doses, Starting on Valeri 02/16/23 at 1432, Until Valeri 02/16/23 at 1858, Maximum total of 5 doses. If patient reaches max total dose, please consult anesthesiologist prior to further administration of pain meds. Hold pain meds if there are signs of hypoventilation. Patient preference for lesser PRN pain meds may be honored when the patient requests a less strong medication, a lower dose, or a less intrusive route of administration when the lesser drug, dose and route have been ordered for the patient. This patient request must be documented in the MAR., PACU naloxone (Narcan) injection 0.04 mg 0.04 mg, Intravenous, POST-OP MULTIPLE, Starting on Valeri 02/16/23 at 1432, Until Valeri 02/16/23 at 1858, If respiration rate is less than 7 per minute administer IV every 1 minute until respirations are greater than 12 per minute. Notify anesthesia immediately., PACU ondansetron (Zofran) injection 4 mg 4 mg, Intravenous, ONCE PRN, Nausea/Vomiting, 1 dose, Starting on Valeri 02/16/23 at 1347, Until Valeri 02/16/23 at 1858, First choice vancomycin (Vancocin) 1,500 mg in 530 mL IVPB 1,500 mg, at 353.33 mL/hr, Intravenous, ONCE, 1 dose, On Valeri 02/16/23 at 1130, Initiate within 2 hours prior to surgical incision., Indication for anti-infective therapy: Surgical prophylaxis, Pre-op $ New Bag/Syringe 02/16/2023 11:59 AM CDT 1,500 mg 353.33 mL/hr documented in this encounter Active and Recently Administered Medications Times are shown in CDT. Scheduled Medication Order 02/14/2023 02/15/2023 02/16/2023 0.9% NaCl injection 3 mL(Linked Group 1) 3 mL, Intracatheter, EVERY 8 HOURS, First dose on Valeri 02/16/23 at 1400, Until Discontinued, Flush peripheral IV catheter with 3 mL of normal saline every 8 hours., Pre-op 1400 (Due) HYDROcodone-acetaminophen ([place]) 7.5-325 MG tablet 1 tablet (COMPLETED) 1 tablet, Oral, POST-OP ONCE, 1 dose, On Valeri 02/16/23 at 1615, Patient preference for lesser PRN pain meds may be honored when the patient requests a less strong medication, a lower dose, or a less intrusive route of administration when the lesser drug, dose and route have been ordered for the patient. This patient request must be documented in the MAR. 1605 ($ Given - Prov ider: Carolina Mendez RN) insulin regular human (HumuLIN R; NovoLIN R) 100 UNIT/ML injection 0-6 Units 0-6 Units, Intravenous, ONCE, 1 dose, On Valeri 02/16/23 at 1445, POC Glucose Regular Insulin Dose 0 - 180 mg/dL = 0 units 181 - 220 mg/dL = 3 units 221 - 260 mg/dL = 4 units 261 - 300 mg/dL = 5 units Above 300 mg/dL = 6 units . WASTE DISPOSAL INSTRUCTIONS: Black Bin Disposal required., PACU 1445 (Due) lidocaine PF (Xylocaine MPF) 1 % injection 0.2 mL 0.2 mL, Infiltration, PRE-OP MULTIPLE, 3 doses, Starting on Valeri 02/16/23 at 1134, Until Valeri 02/16/23 at 1858, May be used (0.2 ml locally to anesthetize prior to insertion)., Pre-op methocarbamol (Robaxin) tablet 500 mg (COMPLETED) 500 mg, Oral, POST-OP ONCE, 1 dose, On Valeri 02/16/23 at 1645 1652 ($ Given - Prov ider: Carolina Mendez RN) naloxone (Narcan) injection 0.04 mg 0.04 mg, Intravenous, POST-OP MULTIPLE, Starting on Valeri 02/16/23 at 1432, Until Valeri 02/16/23 at 1858, If respiration rate is less than 7 per minute administer IV every 1 minute until respirations are greater than 12 per minute. Notify anesthesia immediately., PACU vancomycin (Vancocin) 1,500 mg in 530 mL IVPB (COMPLETED) 1,500 mg, at 353.33 mL/hr, Intravenous, ONCE, 1 dose, On Valeri 02/16/23 at 1130, Initiate within 2 hours prior to surgical incision., Indication for anti-infective therapy: Surgical prophylaxis, Pre-op 1159 ($ New Bag/Syri nge - Provider: Brenda Hou RN)1329 (Due: Stopped - Provider: Brenda Hou RN) Continuous Medication Order 02/14/2023 02/15/2023 02/16/2023 lactated ringers infusion at 20 mL/hr, Intravenous, PRE-OP CONTINUOUS, Starting on Valeri 02/16/23 at 1145, Until Valeri 02/16/23 at 1858, Pre-op 1155 ($ New Bag/Syri nge - Provider: Brenda Hou RN)1431 (Anesthesia Volume Adjustment - Provider: Cordelia Barrientos APRN-[employer]PERATOR MAINTAINER) lactated ringers infusion at 125 mL/hr, Intravenous, CONTINUOUS, Starting on Valeri 02/16/23 at 1445, Until Valeri 02/16/23 at 1858, PACU 1445 (Due) PRN Medication Order 02/14/2023 02/15/2023 02/16/2023 0.9% NaCl injection 1-10 mL(Linked Group 1) 1-10 mL, Intracatheter, PRN, Other, peripheral line flush, Starting on Valeri 02/16/23 at 1127, Until Valeri 02/16/23 at 1858, Flush peripheral IV catheter with 1-10 mL of normal saline before and after medications and prn to clear blood from the line or to verify patency., Pre-op acetaminophen (Tylenol) tablet 1,000 mg 1,000 mg, Oral, EVERY 4 HOURS PRN, Mild Pain, Starting on Valeri 02/16/23 at 1157, Until Valeri 02/16/23 at 1858, Patient preference for lesser PRN pain meds may be honored when the patient requests a less strong medication, a lower dose, or a less intrusive route of administration when the lesser drug, dose and route have been ordered for the patient. This patient request must be documented in the MAR. 1158 ($ Given - Prov ider: Brenda Hou RN) BUPivacaine 0.75% - EPINEPHrine 1:200,000 (PF) injection (CANCELED) PRN, Starting on Valeri 02/16/23 at 1354, Until Valeri 02/16/23 at 1434, Intra-op 1354 ($ Given - Prov ider: Maxi Gregg MD) fentaNYL (PF) (Sublimaze) injection 50 mcg 50 mcg, Intravenous, EVERY 3 MIN PRN, Mild Pain, Starting on Valeri 02/16/23 at 1432, Until Valeri 02/16/23 at 1858, Maximum total of 4 doses. If patient reaches max total dose, please consult anesthesiologist prior to further administration of pain meds. Hold pain meds if there are signs of hypoventilation. Patient preference for lesser PRN pain meds may be honored when the patient requests a less strong medication, a lower dose, or a less intrusive route of administration when the lesser drug, dose and route have been ordered for the patient. This patient request must be documented in the MAR., PACU HYDROmorphone (Dilaudid) injection 0.5 mg 0.5 mg, Intravenous, EVERY 5 MIN PRN, Severe Pain, Starting on Valeri 02/16/23 at 1432, Until Valeri 02/16/23 at 1858, Maximum total of 4 doses If patient reaches max total dose, please consult anesthesiologist prior to further administration of pain meds. Hold pain meds if there are signs of hypoventilation. Patient preference for lesser PRN pain meds may be honored when the patient requests a less strong medication, a lower dose, or a less intrusive route of administration when the lesser drug, dose and route have been ordered for the patient. This patient request must be documented in the MAR., PACU 1439 ($ Given - Prov ider: Heaven Valle RN)1458 ($ Given - Provider: Heaven Valle RN)1506 ($ Given - Provider: Heaven Valle RN) morphine injection 2 mg 2 mg, Intravenous, EVERY 15 MIN PRN, Moderate Pain, 5 doses, Starting on Avleri 02/16/23 at 1432, Until Valeri 02/16/23 at 1858, Maximum total of 5 doses. If patient reaches max total dose, please consult anesthesiologist prior to further administration of pain meds. Hold pain meds if there are signs of hypoventilation. Patient preference for lesser PRN pain meds may be honored when the patient requests a less strong medication, a lower dose, or a less intrusive route of administration when the lesser drug, dose and route have been ordered for the patient. This patient request must be documented in the MAR., PACU ondansetron (Zofran) injection 4 mg 4 mg, Intravenous, ONCE PRN, Nausea/Vomiting, 1 dose, Starting on Valeri 02/16/23 at 1347, Until Valeri 02/16/23 at 1858, First choice vancomycin (Vancocin) injection (CANCELED) PRN, Starting on Valeri 02/16/23 at 1354, Until Valeri 02/16/23 at 1434, Intra-op 1354 ($ Given - Prov ider: Maxi Gregg MD) Linked Groups Order Group 1: SALINE LOCK, INSERT AND MAINTAIN (CANCELED) Routine, CONTINUOUS, Starting on Valeri 02/16/23 at 1130, Until Specified, Pre-op, New collection And 0.9% NaCl injection 3 mLJump to med 3 mL, Intracatheter, EVERY 8 HOURS, First dose on Valeri 02/16/23 at 1400, Until Discontinued, Flush peripheral IV catheter with 3 mL of normal saline every 8 hours., Pre-op And 0.9% NaCl injection 1-10 mLJump to med 1-10 mL, Intracatheter, PRN, Other, peripheral line flush, Starting on Valeri 02/16/23 at 1127, Until Valeri 02/16/23 at 1858, Flush peripheral IV catheter with 1-10 mL of normal saline before and after medications and prn to clear blood from the line or to verify patency., Pre-op documented in this encounter Care Teams Telehealth Nurse Educator Relationship Specialty Start Date End Date Justen Gale MD PCP - General 07/05/21 documented as of this encounter
--- OUTSIDE RECORDS SUMMARY | 2024-04-26 02:32 | XMS_ITS | Encounter Summary ---
Author Organization [facility] Address [address] [place] [address] Care Team Providers Care Forensic Medical Examiner Name Role Phone Justen Gale MD Primary Care Provider [phone] Reason for Visit * Reason Onset Date Comments Surgery Scheduling 12/15/2022 Encounter Details Date Type Department Care Team (Late st Contact Info) Description 12/15/2022 Telephone [facility] - Neurosurgery [address] [place] [address], [place] [address] Angeline Avila, senior staff psychologist Scheduling Social History Tobacco Use Types Packs/Day [...] Encounter - Angeline Avila RN - 12/15/2022 8:57 AM CDT Returned patients call to schedule surgery. Unable to reach. Left voice mail to return call. documented in this encounter Plan of Treatment Not on file documented as of this encounter Visit Diagnoses Not on filedocumented in this encounter Care Teams Forensic Medical Examiner Relationship Specialty Start Date End Date Justen Gale MD PCP - General 07/05/21 documented as of this encounter
--- OUTSIDE RECORDS SUMMARY | 2024-04-26 02:32 | XMS_ITS | Encounter Summary ---
Author Organization [facility] Address [address] [place] [address] Care Team Providers Care Trolley Coach Driver Name Role Phone Justen Gale MD Primary Care Provider [phone] Reason for Visit * Reason Comments Chest Pain Patient arrives to E D triage via EMS with c/o chest pain that started earlier today, patient had spinal stimulator surgery yesterday. 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 EMS administered 324mg aspirin and one nitro spray in route with minor relief Encounter Details Date Type Department Care Team (Late st Contact Info) Description 02/18/2023 1:09 AM CDT - 02/18/2023 8:14 AM CDT Emergency [facility] [address] [place] [phone] Cal Alicea MD [address] [place] [address] DIV OF EMERGENCY MEDICINE [place], [place] Roger Snowden MD [address] [place] [address] [place] [address] Chest pain, unspecified type (Primary Dx); Post-op pain; Back pain, unspecified back location, unspecified back pain laterality, unspecified chronicity Discharge Disposition: Home or Self Care Social [...] and heating? Not hard at all 12/23/2022 [employer] [facility] - Occupational Stress [...] place to sleep or slept in a half-way (including now)? No 12/23/2022 Sex and Gender Information Value Date Recorded Sex Assigned at Not on file Gender Identity Not on file Sexual Orientation Not on file documented as of this encounter Last Filed Vital Signs Vital Sign Reading Time Taken Comments Blood Pressure 149/100 02/18/2023 7:40 AM CDT Pulse 96 02/18/2023 7:15 AM CDT Temperature 36.6 ??C (97.8 ??F) 02/17/2023 5:05 PM CD T Respiratory Rate 20 02/18/2023 7:40 AM CDT Oxygen Saturation 95% 02/18/2023 7:40 AM CDT Inhaled Oxygen Concentration - - Weight 129.3 kg (285 lb) 02/17/2023 5:05 PM CDT Height 154.9 cm (5' 1 ) 02/17/2023 5:05 PM CDT Body Mass Index 53.85 02/17/2023 5:05 PM CDT documented in this encounter Functional [...] this encounter Discharge Instructions * Discharge Instructions* John Paul Dubois MD - 02/18/2023 5:35 AM CDT You were seen and evaluated in the ED for postoperative pain. No acute issues were discovered during workup. Please follow up as directed. Please continue to take pain medication at home as prescribed. Please return to the ED for any acute worsening of your condition. Any acute chest pain, shortness of breath, or fever/chills. documented in this encounter Medications at Time [...] mouth once daily 07/17/2022 05/19/2023 HYDROcodone-acetaminoph en ([place]) 10-325 MG tablet Take 1 (one) tablet [...] 11/08/2021 023 documented as of this encounter ED Notes * Cielo Smith RN - 02/18/2023 8:11 AM CDT Patient provided with written and verbal discharge and follow up instructions and had no questions.Patient was able to stand on her own and transfer to a wheel chair. Patient was wheeled with her belongings out of the ED, where her ride was waiting. RN assisted patient into vehicle. * Cielo Smith RN - 02/18/2023 7:20 AM CDT Checked on patient and assisted her in dressing herself. Her ride is on the way. * Larissa Roman RN - 02/18/2023 7:18 AM CDT Report given to Valarie LAWLER * Cal Alicea MD - 02/18/2023 2:22 AM CDT Emergency Medicine Attending Provider Note Chief Complaint Patient presents with ??? Chest Pain Patient arrives to ED triage via EMS with c/o chest pain that started earlier today, patient had spinal stimulator surgery yesterday. 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 EMS administered 324mg aspirin and one nitro spray in route with minor relief Resident Attestation: Patient seen and evaluated with the resident(s), Dr Dubois, who also contributed to this note. I have performed an independent history and physical examination and discussed the patient's management with the resident. I confirm the residents findings, assessment as documented in their plan of care/note, except whererevised on this note. 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 Pt reports that she has been experiencing chest pain and back pain since undergoing surgery at [facility] yesterday. States that she underwent spinal stimulator replacement yesterday and was discharged home. States that since discharge, she has been experiencing midsternal, nonradiating chest pain. Also reports back pain over her surgical site. Denies fever, chills, SOB, abdominal pain, or palpitations. Statesthat she was taken off her anticoagulants approximately eight days ago in preparation for her surgery. Notes that she has been mobile since her surgery. No alleviating or exacerbating factors. No other modifying factors or complaints at this time. Past Medical History: Diagnosis [...] No Stress: No Stress Concern Present (12/23/2022) [employer] - Occupational Stress Questionnaire ??? Feeling of Stress : Not at all Housing Stability: Low Risk (12/23/2022) Housing Stability Vital Sign ??? Unable to Pay for Housing in the Last Year: No ??? Number of Places Lived in the Last Year: 1 ??? Unstable Housing in the Last Year: No ROS - See HPI. PHYSICAL EXAM BP 142/75 Pulse 68 Temp 97.8 ??F (36.6 ??C) (Tympanic) Resp 20 Ht 1.549 m (5' 1 ) Wt 129.3 kg (285 lb) SpO2 99% Physical Exam Vitals and nursing note reviewed. Exam conducted with a plastic injection mold maker present. Constitutional: General: She is not in acute distress. Appearance: Normal appearance. She is obese. She is not ill-appearing, toxic- appearing or diaphoretic. HENT: Head: Normocephalic and atraumatic. Nose: Nose [...] distress. Breath sounds: Normal breath sounds. No stridor. No wheezing. Abdominal: General: There is no distension. Palpations: Abdomen is soft. Tenderness: There is no abdominal tenderness. There is no right CVA tenderness, left CVA tenderness, guarding or rebound. Musculoskeletal: General: Tenderness present. Normal range of motion. Cervical back: Normal range of motion and neck supple. Right lower leg: No edema. Left lower leg: No edema. Comments: Tenderness to palpation over sternal border. Skin: General: Skin is warm and dry. Capillary Refill: Capillary refill takes less than 2 seconds. Findings: No rash. Comments: Midline spinal incision site appears CDI; no fluctuance, erythema, or drainage. Neurological: General: No focal deficit present. Mental Status: She is alert and oriented to person, place, and time. Cranial Nerves: No cranial nerve deficit. Motor: No weakness. Psychiatric: Mood and Affect: Mood normal. MEDICAL DECISION MAKING Problem List: chest pain, back pain Impression: 67 year old female with hx as above who presents with back pain and chest pain; underwent spinal stimulator replacement yesterday DDx: postoperative infection vs ACS vs PE vs arrhythmia vs PTX vs PNA vs metabolic derangement vs other Plan: Labs, CXR, CT PE, pain control, EKG, re-evaluation RESULTS Labs Reviewed CBC W AUTO DIFFERENTIAL - Abnormal; Notable for the following components: Result Value WBC 14.9 (*) Neutrophils Absolute 10.27 (*) Monocytes Absolute 1.18 (*) All other components within normal limits COMPREHENSIVE METABOLIC PANEL - Abnormal; Notable for the following components: Glucose 290 (*) Protein Total 8.9 (*) BUN/Creatinine Ratio 27 (*) Osmolality Calculated 298 (*) Albumin/Globulin Ratio 0.7 (*) eGFR by CKD-EPI 85 (*) All other components within normal limits TROPONIN-I HIGH SENSITIVE BASELINE + 1HR - Normal PT-INR [facility] - Normal TROPONIN-I HIGH SENSITIVE REFLEX 1HOUR - Normal XR CHEST 1VW PORTABLE (Results Pending) CT CHEST PE W ABD PELVIS W CONT (Results Pending) INTERVENTIONS: Medications 0.9% NaCl injection 3 mL (3 mL Intracatheter Not Administered 10/28/23 0524) And 0.9% NaCl injection 1-10 mL (has no administration in time range) nitroGLYCERIN (Nitrostat) tablet 0.4 mg (has no administration in time range) iopamidol (Isovue 370) 76 % contrast (100 mL Intravenous $ Given - Contrast 02/18/23 0356) HYDROmorphone (Dilaudid) injection 0.5 mg (0.5 mg Intravenous $ Given 02/18/23 9232) HYDROmorphone (Dilaudid) injection 0.5 mg (0.5 mg Intravenous $ Given 02/18/23 3710) Procedures ED COURSE Patient seen and evaluated, available studies reviewed I personally interpreted the EKG. Time: 17-Feb-23 Normal sinus rhythm at a rate of 94 with occasional PACs. Normal axis, prolonged QTc 475. Inverted T-waves in V3. No obvious acute ischemic changes. I personally interpreted the following labs: CBC remarkable for leukocytosis at 14.9; nonspecific given postoperative status. Troponin WNL. CMP remarkable for hyperglycemia at 290, consistent with hx DM; no other electrolyte abnormality. I personally interpreted the following Imaging studies: CXR: no acute pulmonary process Time critical events not noted above: 0510- CT PE chest/abdomen/pelvis demonstrates no acute cardiopulmomary or intraabdominal process. 0536- Upon reassessment, pt reports mildly improved chest pain s/p dilaudid. Pt informed of her negative imaging. Will discharge home at this time. Pt will be advised to follow-up with their PCP within one week. They will be given strict return precautions. 0550- I have reviewed her diagnostic findings and she has had an opportunity to ask me any questions she has about care, diagnosis and discharge plan. Patient is comfortable with the discharge plan. She will follow up as directed and will return to the ER if her condition worsens or she develops other urgent concerns. MDM: Patient's Cardiac workup grossly unremarkable. Chest pain likely from prone positioning duringrecent surgery. CT scan reassuring with no signs of would infection at the site. Pt offered admission for pain control and further management, but declined. Comfortable with the discharge plan. Will discharge with return precautions. I personally discussed this case with the following Physicians/consultants: N/A Medications given in ED: Yes - see MAR Medications prescribed: Yes Revised home medications: No Social determinants of health: Yes Social Determinants of Health Tobacco Use: Medium Risk (02/16/2023) Patient History ??? Smoking Tobacco Use: Former ??? Smokeless Tobacco Use: Never ??? Passive Exposure: Not on file Alcohol Use: Not At Risk (02/16/2023) AUDIT-C ??? Frequency of Alcohol Consumption: Never ??? Average Number of Drinks: Patient does not drink ??? Frequency of Binge Drinking: Never Financial Resource Strain: Low Risk (12/23/2022) Overall [...] No Stress: No Stress Concern Present (12/23/2022) [employer] - Occupational Stress Questionnaire ??? Feeling of Stress : Not at all Depression: Not on file Housing Stability: Low Risk (12/23/2022) Housing Stability Vital Sign ??? Unable to Pay for Housing in the Last Year: No ??? Number of Places Lived in the Last Year: 1 ??? Unstable Housing in the Last Year: No Amount and/or Complexity of Data Reviewed medical complexity: Triage notes and available nursing notes reviewed , Clinical lab tests: orderedand reviewed, Tests in the radiology section of CPT??: ordered and independent interpretation and Independent visualization of images: yes Shared decision making: Results of workup including labs and imaging discussed with patient at length. All questions answered. Patient comfortable with the discharge plan, will discharge with return precautions. ED FINAL DIAGNOSIS 1. Chest pain, unspecified type 2. Post-op pain 3. Back pain, unspecified back location, unspecified back pain laterality, unspecified chronicity Please see resident note (if present) for further details. DISPOSITION Discharge By signing my name below, Prakash Perez, attest that this documentation has been prepared under the direction and in the presence of Dr. Alicea. Signed: Kehinde Horton. Ana, Dr. Alicea, personally performed the services described in this documentation. All medical record entries made by the scribe were at my direction and in my presence. I have reviewed the chart andagree that the record reflects my personal performance and is accurate and complete. Electronically signed: Dr. Alicea. Cal Alicea MD Emergency Medicine * Dillon Mejia RN - 02/18/2023 1:09 AM CDT Bed: [facility] Expected date: Expected time: Means of arrival: Comments: Agustin * Larissa De Diso RN - 02/17/2023 5:06 PM CDT Patient arrives to ED triage via EMS with c/o chest pain that started earlier today, patient had spinal stimulator surgery yesterday. 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 EMS administered 324mg aspirin and one nitro spray in route with minor relief documented in this encounter Miscellaneous Notes * Clinical References AVS - John Paul Dubois MD - 02/18/2023 5:35 AM CDT Images from the original note were not included. [id number] Managing Post-Op Pain at Home: Medicines Pain after an operation (post-op pain) is common and expected. These guidelines can help you stay as comfortable as possible. Taking pain medicines ?? Take only the medicines that your healthcare provider tells you to take. ?? Take medicines on time. Don't take more than prescribed. ?? Take pain medicines with some food to prevent an upset stomach. ?? Don?t drink alcohol while using pain medicines. ?? Don't drive while taking opioid pain medicines. Types of pain medicines Non-opioid ?? Check with your healthcare provider before taking any xuzr-pwx-rmgzteo (OTC) pain reliever in addition to or instead of your prescribed pain medicine. ?? Non-opioids include OTC acetaminophen and ibuprofen and some prescription pain relievers. ?? All relieve mild to moderate pain, and some reduce swelling. ?? Possible side effects include stomach upset and bleeding. High doses may cause kidney or liver problems. Opioid ?? Opioids are available only by prescription. ?? Opioids ease moderate to severe pain. ?? Possible side effects include stomach upset, nausea, drowsiness, rash, and itching. ?? Opioids may cause constipation. To help prevent this, eat high-fiber foods and drink plenty of water. ?? Your healthcare provider may recommend a stool softener. ?? Don't drive, make important decisions, or operate machinery while taking opioids. When to call your healthcare provider Call your healthcare provider or seek medical attention right away if you notice any of these symptoms: ?? Nausea, vomiting, diarrhea, constipation, or stomach cramps ?? Breathing problems or a fast heart rate ?? Feeling tired, sluggish, or dizzy ?? Skin rash or other allergic symptoms ?? Pain that is not eased with the pain medicine Last Reviewed Date: 2021 ?? [id number] [employer]. All rights reserved. This information is not intended as a substitute for professional medical care. Always follow your healthcare professional's instructions. documented in this encounter Plan of Treatment Not on file documented as of this encounter Procedures Procedure Name Priority Date/Time Associated Diagnosis Comments CARDIAC EKG ORDER 02/20/2023 2:[address] CHEST PE W ABD PELVIS W CONT STAT 02/18/2023 4:01 AM CDT Post-op pain Chest pain, unspecified type Back pain, unspecified back location, unspecified back pain laterality, unspecified chronicity TROPONIN-I HIGH SENSITIVE REFLEX 1HOUR Timed 02/17/2023 8:03 PM CDT XR CHEST 1VW PORTABLE STAT 02/17/2023 7:58 PM CDT Post-op pain PT-INR [facility] STAT 02/17/2023 6:38 PM CDT TROPONIN-I HIGH SENSITIVE BASELINE + 1HR STAT 02/17/2023 6:38 PM CDT CBC W AUTO DIFFERENTIAL STAT 02/17/2023 6:38 PM CDT COMPREHENSIVE METABOLIC PANEL STAT 02/17/2023 6:38 PM CDT EKG 12-LEAD STAT 02/17/2023 6:25 PM CDT Post-op pain documented in this encounter Results * CARDIAC EKG ORDER (02/20/2023 2:09 PM CDT) Narrative 02/20/2023 2:09 PM CDT Ordered by an unspecified provider. Scanned Document CARDIAC SERVICES ORD ERABLES * CT CHEST PE W ABD PELVIS W CONT (02/18/2023 4:01 AM CDT) Anatomical Region Laterality Modality Chest, Abdomen, Pelvis Computed Tomography 02/18/2023 4:0 8 AM CDT Impressions 02/18/2023 8:48 AM CDT Impression: 1.No evidence of pulmonary embolism. 2.Mild dependent atelectasis. 3.No acute process identified in the abdomen or pelvis. 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 > Dictated by Alvarez Sanderson MD (residential real estate appraiser). I, Gume Bell MD have personally reviewed and interpreted this examination/study. > Interpreting Provider: Gume Bell MD on 02/18/2023 8:48 AM Narrative 02/18/2023 8:48 AM CDT PROCEDURE: ??CT CHEST PE W ABD PELVIS W CONT, DATE/TIME OF EXAM: ??02/18/2023 4:04 AM, LOCATION ??[facility] INDICATION: G89.18: Post-op pain R07.9: Chest pain, [...] subcutaneous edema and gas present. Procedure Note Gume Bell MD - 02/18/2023 PROCEDURE: CT CHEST PE W ABD PELVIS W CONT, DATE/TIME OF EXAM:02/18/2023 4:04 AM, LOCATION [facility] INDICATION: G89.18: Post-op pain R07.9: Chest pain, [...] malacia. > Dictated by Alvarez Sanderson MD (residential real estate appraiser). I, Gume Bell MD have personally reviewed and interpreted this examination/study. > Interpreting Provider: Gume Bell MD on 02/18/2023 8:48 AM Cal Alicea MD CT ORDERABLES * TROPONIN-I HIGH SENSITIVE REFLEX 1HOUR (02/17/2023 8:03 PM CDT) Troponin I High Sensitive 4 <=14 ng/L 02/17/2023 9:17 PM CDT [facility] [place] Troponin I HS 1 <6 ng/L 02/17/2023 9:17 PM CDT [facility] Blood BLOOD SPECIMEN / Unknown Venipuncture / Unknown 02/17/2023 8:03 PM CDT 02/17/2023 8:12 PM CDT Cal Alicea MD LAB - CHEMISTRY ANGEL SPEARS [facility] [address] [place] [address], [facility] [phone] * XR CHEST 1VW PORTABLE (02/17/2023 7:58 PM CDT) Anatomical Region Laterality Modality Chest Radiographic Lizeth ging 02/17/2023 8:07 PM CDT Narrative 02/20/2023 10:54 AM CDT PROCEDURE: ??XR CHEST 1VW PORTABLE, DATE/TIME OF EXAM: ??02/17/2023 7:59 PM, LOCATION ??[facility] INDICATION: G89.18: Post-op pain ADDITIONAL CLINICAL INFORMATION: Ordering Provider Reason For Exam: ??chest pain COMPARISON: Chest x-ray dated 11/11/2021. FINDINGS/IMPRESSION: There are interstitial opacities compatible with pulmonary edema or possibly interstitial pneumonia. No pleural effusion or pneumothorax. Report dictated by Alvarez Sanderson MD (residential real estate appraiser). Kirit Perez MD have personally reviewed and interpreted this examination/study. > Interpreting Provider: Kirit Phillips MD on 02/20/2023 10:54 AM Procedure Note Kriit Phillips MD - 02/20/2023 PROCEDURE: XR CHEST 1VW PORTABLE, DATE/TIME OF EXAM: 02/17/2023 7:59PM, LOCATION [facility] INDICATION: G89.18: Post-op pain ADDITIONAL CLINICAL INFORMATION: Ordering Provider Reason For Exam: chest pain COMPARISON: Chest x-ray dated 11/11/2021. FINDINGS/IMPRESSION: There are interstitial opacities compatible with pulmonary edema or possibly interstitial pneumonia. No pleural effusion or pneumothorax. Report dictated by Alvarez Sanderson MD (residential real estate appraiser). Kirit Perez MD have personally reviewed and interpreted this examination/study. > Interpreting Provider: Kirit Phillips MD on 02/20/2023 10:54 AM Cal Alicea MD DIAGNOSTIC IMAGING O RDERABLES * PT-INR [facility] (02/17/2023 6:38 PM CDT) PT 12.7 12.1 - 14.8 Seconds 02/17/2023 7:29 PM CDT [facility] INR 1.0 See Comment 02/17/2023 7:29 PM CDT [facility] Comment:The suggested therap eutic range for standard coumadin (warfarin) therapy is an INR of 2.0-3.0. For high-risk patients (Mechanical Mitral Valve Prosthesis, etc.), the suggested prophylactic therapeutic range is an INR of 2.5-3.5. Blood BLOOD SPECIMEN / Unknown Venipuncture / Unknown 02/17/2023 6:38 PM CDT 02/17/2023 6:41 PM CDT Cal Alicea MD LAB - COAGULATION OR DERABLES Performing Organization Address City/State/[facility] Co de Phone Number [facility] [address] [place] [phone], [facility] [phone] * (ABNORMAL) COMPREHENSIVE METABOLIC PANEL (02/17/2023 6:38 PM CDT) Pathologist [facility] BUN 21 7 - 26 mg/dL 02/17/2023 7:14 PM T [facility] Creatinine 0.77 0.56 - 0.96 mg/dL 02/17/2023 7:14 PM [facility] Sodium 137 136 - 145 mmol/L 02/17/2023 7:14 PM T [facility] Potassium 3.7 3.5 - 4.5 mmol/L 02/17/2023 7:14 PM [facility] Chloride 100 98 - 107 mmol/L 02/17/2023 7:14 PM [facility] CO2 24 22 - 29 mmol/L 02/17/2023 7:14 PM [facility] Glucose 290(H) 70 - 115 mg/dL 02/17/2023 7:14 PM T [facility] Calcium 9.7 8.4 - 10.2 mg/dL 02/17/2023 7:14 PM [facility] Protein Total 8.9(H) 6.0 - 8.3 g/dL 02/17/2023 7:14 PM [facility] Albumin 3.6 3.4 - 5.0 g/dL 02/17/2023 7:14 PM [facility] Bilirubin Total 0.4 0.2 - 1.2 mg/dL 02/17/2023 7:14 PM [facility] Alkaline Phosphatase 76 40 - 150 U/L 02/17/2023 7:14 PM [facility] ALT 18 5 - 55 U/L 02/17/2023 7:14 PM [facility] AST 19 5 - 34 U/L 02/17/2023 7:14 PM [facility] Anion Gap 13 6 - 16 02/17/2023 7:14 PM [facility] BUN/Creatinine Ratio 27(H) 7 - 23 02/17/2023 7:14 PM [facility] Osmolality Calculated 298(H) 275 - 295 mOsm/kg 02/17/2023 7:14 PM [facility] Albumin/Globulin Ratio 0.7(L) 1.1 - 2.3 02/17/2023 7:14 PM [facility] eGFR by CKD-EPI 85(L) >=90 mL/min/1.7 3 m2 02/17/2023 7:14 PM [facility] Blood BLOOD SPECIMEN / Unknown Venipuncture / Unknown 02/17/2023 6:38 PM CDT 02/17/2023 6:46 PM CDT Cal Alicea MD LAB - CHEMISTRY ANGEL SPEARS [facility] Organization Address City/State/ZIP Co de Phone Number [facility] [address] [place] [phone], [facility] [phone] * (ABNORMAL) CBC W AUTO DIFFERENTIAL (02/17/2023 6:38 PM CDT) WBC 14.9(H) 3.5 - 10.5 10? 3 /uL 02/17/2023 6:56 PM [facility] RBC 4.74 3.80 - 5.20 10? 6 /uL 02/17/2023 6:56 PM [facility] Hemoglobin 13.5 12.0 - 15.6 g/dL 02/17/2023 6:56 PM [facility] Hematocrit 42.8 35.0 - 45.0 % 02/17/2023 6:56 PM [facility] MCV 90.3 80.7 - 98.3 fL 02/17/2023 6:56 PM [facility] MCH 28.5 26.7 - 34.0 pg 02/17/2023 6:56 PM [facility] MCHC 31.5 30.8 - 35.9 g/dL 02/17/2023 6:56 PM [facility] RDW-SD 44.9 36.0 - 50.0 fL 02/17/2023 6:56 PM [facility] RDW-CV 13.5 11.2 - 14.8 % 02/17/2023 6:56 PM [facility] Platelet Count 311 150 - 400 10? 3 /uL 02/17/2023 6:56 PM [facility] MPV 9.9 9.4 - 12.9 fL 02/17/2023 6:56 PM [facility] nRBC Absolute 0.00 0 10? 3 /uL 02/17/2023 6:56 PM [facility] nRBC Auto 0.0 0 /100 WBC 02/17/2023 6:56 PM [facility] Neutrophils % 68.9 35.0 - 70.0 % 02/17/2023 6:56 PM [facility] Lymphocytes % 22.1 20.0 - 43.0 % 02/17/2023 6:56 PM [facility] Monocytes % 7.9 5.0 - 13.0 % 02/17/2023 6:56 PM [facility] Eosinophils % 0.3 0.0 - 6.0 % 02/17/2023 6:56 PM [facility] Basophil % 0.3 0.0 - 2.0 % 02/17/2023 6:56 PM CDT [facility] [facility] Neutrophils Absolute 10.27(H) 1.60 - 7.00 10? 3 /uL 02/17/2023 6:56 PM CDT [facility] Lymphocyte Absolute 3.30 1.10 - 3.90 10? 3 /uL 02/17/2023 6:56 PM CDT [facility] Monocytes Absolute 1.18(H) 0.26 - 1.07 10? 3 /uL 02/17/2023 6:56 PM CDT [facility] Eosinophils Absolute 0.04 0.00 - 0.47 10? 3 /uL 02/17/2023 6:56 PM CDT [facility] Basophils Absolute 0.05 0.00 - 0.08 10? 3 /uL 02/17/2023 6:56 PM CDT [facility] Immature Granulocytes % 0.5 0.0 - 1.0 % 02/17/2023 6:56 PM CDT [facility] Immature Granulocytes Absolute 0.07 02/17/2023 6:56 PM CDT [facility] Blood BLOOD SPECIMEN / Unknown Venipuncture / Unknown 02/17/2023 6:38 PM CDT 02/17/2023 6:41 PM CDT Cal Alicea MD LAB - HEMATOLOGY [facility] [place] [address] [address], [place] [phone] * TROPONIN-I HIGH SENSITIVE BASELINE + 1HR (02/17/2023 6:38 PM CDT) Troponin I High Sensitive <3 <=14 ng/L 02/17/2023 7:19 PM CDT [facility] Blood BLOOD SPECIMEN / Unknown Venipuncture / Unknown 02/17/2023 6:38 PM CDT 02/17/2023 6:46 PM CDT Cal Alicea MD LAB - CHEMISTRY ORDNicholas SPEARS [address] [address], [place] [phone] * EKG 12-LEAD (02/17/2023 6:25 PM CDT) Ventricular Rate 94 BPM [facility] Atrial Rate 94 BPM [facility] P-R Interval 126 ms [facility] QRS Duration ms 88 ms [facility] Q-T Interval ms 380 ms [facility] QTC Calculation (Bezet) 475 ms [facility] MUSE Calculated P [place] 13 degrees [facility] MUSE Calculated R [place] 6 degrees [facility] MUSE Calculated T [place] 50 degrees [facility] Interpretation EKG UNDETERMINED RHYTHM NONSPECIFIC T WAVE ABNORMALITY PROLONGED QT ABNORMAL ECG WHEN COMPARED WITH ECG OF 11-NOV-2021 17:24, T WAVE INVERSION NOW EVIDENT IN ANTERIOR LEADS QT HAS LENGTHENED Confirmed by JUAN DE LA PAZ MD ([id number]) on 02/23/2023 6:25:04 PM [facility] 02/17/2023 6:25 PM CDT 02/23/2023 6:25 PM CDT Cal Alicea MD ECG [place]ABLES [facility] [place] in this encounter Visit Diagnoses Diagnosis Chest pain, unspecified type- Primary Post-op pain Other acute postoperative pain Back pain, unspecified back location, unspecified back pain laterality, unspecified chronicity documented in this encounter Administered Medications Inactive Administered Medications - up to 3 most recent administrations Medication Order MAR Action Action Date Dose Rate Site 0.9% NaCl injection 1-10 mL 1-10 mL, Intracatheter, PRN, Other, peripheral line flush, Starting on Mon02/17/23 at 1703, Until 02/18/23 at 0914, Flush peripheral IV catheter with 1-10 mL of normal saline before and after medications and prn to clear blood from the line or to verify patency. 0.9% NaCl injection 3 mL 3 mL, Intracatheter, EVERY 8 HOURS, First dose on Mon02/17/23 at 1745, Until Discontinued, Flush peripheral IV catheter with 3 mL of normal saline every 8 hours. HYDROmorphone (Dilaudid) injection 0.5 mg 0.5 mg, Intravenous, NOW, 1 dose, On 02/18/23 at 0230, Patient preference for lesser PRN pain meds may be honored when the patient requests a less strong medication, a lower dose, or a less intrusive route of administration when the lesser drug, dose and route have been ordered for the patient. This patient request must be documented in the MAR. $ Given 02/18/2023 2:34 AM CDT 0.5 mg HYDROmorphone (Dilaudid) injection 0.5 mg 0.5 mg, Intravenous, NOW, 1 dose, On 02/18/23 at 0545, Patient preference for lesser PRN pain meds may be honored when the patient requests a less strong medication, a lower dose, or a less intrusive route of administration when the lesser drug, dose and route have been ordered for the patient. This patient request must be documented in the MAR. $ Given 02/18/2023 5:45 AM CDT 0.5 mg iopamidol (Isovue 370) 76 % contrast Intravenous, CONTRAST ONCE, Starting on 02/18/23 at 0342, Until 02/18/23 at 0914 $ Given - Contrast 02/18/2023 3:44 AM CDT 100 mL nitroGLYCERIN (Nitrostat) tablet 0.4 mg 0.4 mg, Sublingual, EVERY 5 MIN PRN, Angina, Chest pain, 3 doses, Starting on 02/17/23 at 1703, Until 02/18/23 at 0914, Notify physician after 3 doses if chest pain not relieved. documented in this encounter Active and Recently Administered Medications Times are shown in CDT. Scheduled Medication Order 02/16/2023 02/17/2023 02/18/2023 0.9% NaCl injection 3 mL(Linked Group 1) 3 mL, Intracatheter, EVERY 8 HOURS, First dose on Mon02/17/23 at 1745, Until Discontinued, Flush peripheral IV catheter with 3 mL of normal saline every 8 hours. 1745 (Due) 0113 (Not Administered - Provider: Larissa Roman RN - Reason: See Comments)0524 (Not Administered - Provider: Larissa Roman RN - Reason: See Comments) HYDROmorphone (Dilaudid) injection 0.5 mg (COMPLETED) 0.5 mg, Intravenous, NOW, 1 dose, On 02/18/23 at 0230, Patient preference for lesser PRN pain meds may be honored when the patient requests a less strong medication, a lower dose, or a less intrusive route of administration when the lesser drug, dose and route have been ordered for the patient. This patient request must be documented in the JUN. 023 ($ Given - Prov ider: Larissa Roman RN) HYDROmorphone (Dilaudid) injection 0.5 mg (COMPLETED) 0.5 mg, Intravenous, NOW, 1 dose, On 02/18/23 at 0545, Patient preference for lesser PRN pain meds may be honored when the patient requests a less strong medication, a lower dose, or a less intrusive route of administration when the lesser drug, dose and route have been ordered for the patient. This patient request must be documented in the JUN. 0545 ($ Given - Prov ider: Larissa Roman RN) iopamidol (Isovue 370) 76 % contrast Intravenous, CONTRAST ONCE, Starting on 02/18/23 at 0342, Until 02/18/23 at 0914 0344 ($ Given - Cont rast - Provider: Jeremías Sams) PRN Medication Order 02/16/2023 02/17/2023 02/18/2023 0.9% NaCl injection 1-10 mL(Linked Group 1) 1-10 mL, Intracatheter, PRN, Other, peripheral line flush, Starting on Mon02/17/23 at 1703, Until 02/18/23 at 0914, Flush peripheral IV catheter with 1-10 mL of normal saline before and after medications and prn to clear blood from the line or to verify patency. nitroGLYCERIN (Nitrostat) tablet 0.4 mg 0.4 mg, Sublingual, EVERY 5 MIN PRN, Angina, Chest pain, 3 doses, Starting on Mon02/17/23 at 1703, Until 02/18/23 at 0914, Notify physician after 3 doses if chest pain not relieved. Linked Groups Order Group 1: SALINE LOCK, INSERT AND MAINTAIN (CANCELED) Routine, CONTINUOUS, Starting on Mon02/17/23 at 1715, Until Specified, New collection And 0.9% NaCl injection 3 mLJump to med 3 mL, Intracatheter, EVERY 8 HOURS, First dose on Mon02/17/23 at 1745, Until Discontinued, Flush peripheral IV catheter with 3 mL of normal saline every 8 hours. And 0.9% NaCl injection 1-10 mLJump to med 1-10 mL, Intracatheter, PRN, Other, peripheral line flush, Starting on Mon02/17/23 at 1703, Until 02/18/23 at 0914, Flush peripheral IV catheter with 1-10 mL of normal saline before and after medications and prn to clear blood from the line or to verify patency. documented in this encounter Care Teams Trolley Coach Driver Relationship Specialty Start Date End Date Justen aGle MD PCP - General 07/05/21 documented as of this encounter
--- OUTSIDE RECORDS SUMMARY | 2024-04-26 02:32 | XMS_ITS | Encounter Summary ---
Author Organization [facility] Address [address] [place] [address] Care Team Providers Care [employer] Tutor Name Role Phone Justen Gale MD Primary Care Provider [phone] Reason for Visit * Reason Comments Establish Care [facility] [employer] T Encounter Details Date Type Department Care Team (Late st Contact Info) Description 08/15/2022 1:15 PM CDT Office Visit [facility] Neurosurgery [address] [place] [address], [address] [place] [address] Maxi Gregg MD [facility] [id number] S/P insertion of spinal cord stimulator (Primary [...] Sign Reading Time Taken Comments Blood Pressure 148/83 08/15/2022 1:13 PM CDT Pulse 88 08/15/2022 1:13 PM CDT Temperature 36.4 ??C (97.6 ??F) 08/15/2022 1:13 PM CD T Respiratory Rate 18 08/15/2022 1:13 PM CDT Oxygen Saturation 99% 08/15/2022 1:13 PM CDT Inhaled Oxygen Concentration - - Weight 130.2 kg (287 lb) 08/15/2022 1:13 PM CDT Height - - Body Mass Index 54.23 12/14/2021 8:23 AM [...] * Patient Instructions* Melly Banks APRN-CNP - 08/15/2022 1:28 PM CDT Resume your medications that prevent UTIs! Obtain xrays prior to surgery Get clearance about stopping Xarleto Our office will contact you for a surgery date -Surgery will be at [facility] -arrive at [place] 1st floor Surgery department You will need to obtain pre-operative labs within 2-3 weeks of surgery, ESPECIALLY A URINALYSIS -This can be done at your primary care provider or any location you choose -You will receive orders for Labs once a surgery date is established Instructions for surgery: -Avoid NSAIDs (aleve, naproxen, ibuprofen) or Aspirin 1 week prior to surgery -Tylenol is safe to take for pain -Nothing to eat or drink after midnight the night prior to surgery For any questions please call Sonali (Dr. Gregg's nurse) at [phone] To schedule an appointment, please call [phone] If needed, the fax number is [phone] documented in this encounter Progress Notes * Maxi Gregg MD - 08/15/2022 1:05 PM CDT Clinic Note / Progress Note NAME: MOHSEN SALAZAR : 1955 AGE: 67 PROVIDER: Maxi Gregg MD SEX: F DATE: 08/15/2022 I had the pleasure of seeing Mrs. Salazar in the neurosurgery office today. HISTORY OF PRESENT ILLNESS: Mrs. Salazar is a very pleasant 67-year-old lady with history of refractory axial low back pain who was submitted to a T8-T9 laminectomy for placement of a dorsal column stimulation system and placement of the battery in the right lumbar region by me on 09/16/2021. Unfortunately, the patient progressed with an infection at the site of the battery and was submitted to removal of the battery in the right lumbar region by me on 10/30/2021. She comes today for discussionof the surgery for placement of new battery and connection with the old system. The patient has previous history of recurrent urinary tract infections and has already been evaluated by Urology. Social History Socioeconomic History Marital status: Spouse name: Not on file Number of children: Not on file Years of education: Not on file Highest education level: Not on file Occupational History Not on file Tobacco Use Smoking status: Former Packs/day: 0.50 Types: Cigarettes Quit date: 12/05/1977 Years since quittin.7 Smokeless tobacco: Never Vaping Use Vaping status: Never Used Substance and Sexual Activity Alcohol use: No Drug use: No Sexual activity: Not on file Other Topics Concern Not on file Social History Narrative Not on file Social Determinants of Health Financial Resource Strain: Not on file Food Insecurity: No Food Insecurity (11/15/2021) Hunger Vital Sign Worried About Running Out of Food in the Last Year: Never true Ran Out of Food in the Last Year: Never true Transportation Needs: Not on file Stress: Not on file Housing Stability: Not on file Past Medical History: Diagnosis Date Breast cancer [...] BATTERY AND PADDLE LEAD-LEVEL 4 @ 1115 Thoracic Spine Laminectomy Right 09/16/2021 Right; THORACIC [...] DAILY HumaLOG KwikPen 100 UNIT/ML pen HYDROcodone-acetaminophen ([place]) 7.5-325 MG tablet Take 1 (one) tablet [...] MORNING methenamine hippurate (Hiprex) 1 GM tablet Take 1 (one) tablet by mouth 2 times daily naloxone HCl (NARCAN) 4 MG/0.1ML nasal spray as needed ONETOUCH ULTRA test strip 4 times daily oxyBUTYnin CR 24hr (Ditropan XL) 15 MG tablet Take 1 (one) tablet by mouth once daily rOPINIRole (REQUIP) 5 MG tablet TAKE 1 TABLET BY MOUTH EVERY NIGHT trospium (Sanctura) 20 MG tablet Take 1 (one) tablet by mouth 2 times daily XARELTO 20 MG tablet PHYSICAL EXAMINATION: The patient is in mild discomfort, but in no acute distress. She has full strength in upper and lower limbs for all tested muscles. Reflexes are physiologic and symmetric at 1+ in the upper and lower limbs. Sensation is normal in the upper and lower limbs. Wounds in the right lumbar region and posterior thoracic region are well healed. MEDICAL DECISION MAKING: I told the patient that she could consider surgery with placement of new battery in the left lumbar region are well as connection with her paddle and wire system. I explainedto her the risks and benefits of the procedure as well as possible associated complications such asweakness, paralysis, hardware failure, failure to improve and infection. The patient would like to proceed with the proposed surgical intervention. We will order an urinalysis and if it comes as positive, the patient will be placed on prophylactic antibiotics before and after the surgical intervention. Thank you for allowing us to participate in the care of your patient. Maxi Gregg MD LEVI/kerri .[id number] .[id number] Doc ID: [id number] Voice Job ID: [id number] documented in this encounter Plan of Treatment Not on file documented as of this encounter Results * XR LUMBAR SPINE 2 OR 3VW (02/06/2023 12:44 PM CDT) Anatomical Region Laterality Modality Spine Radiographic Lizeth ging 02/06/2023 12:4 7 PM CDT Impressions 02/06/2023 1:00 PM CDT IMPRESSION: Unremarkable lumbar spine. Sclerotic possibly fused SI joints. Edited by Marce Mahmood on 02/06/2023 12:52 PM > Interpreting Provider: Ezequiel Cervantes MD on 02/06/2023 1:00 PM Narrative 02/06/2023 1:00 PM CDT PROCEDURE: ??XR LUMBAR SPINE 2 OR 3VW DATE/TIME OF EXAM: ??02/06/2023 12:44 PM CLINICAL INFORMATION: None relevant/not provided if blank. Indication: Z96.89: Presence of other specified functional implants. FINDINGS: ?? AP and lateral views of lumbar spine show normal vertebral heights. There is interspace height loss at multiple levels with spurring seen on some vertebral bodies. There is sclerosis in the posterior elements. The pedicles are intact. Wires overlie midline and terminate projected over the right SI joint inferiorly. Heavy sclerosis is seen at both SI joints bilaterally and the joint space is obscured possibly partially fused. Procedure Note Ezequiel Cervantes MD - 02/06/2023 PROCEDURE: XR LUMBAR SPINE 2 OR 3VW DATE/TIME OF EXAM: 02/06/2023 12:44 PM CLINICAL INFORMATION: None relevant/not provided if blank. Indication: Z96.89: Presence of other specified functional implants. FINDINGS: AP and lateral views of lumbar spine show normal vertebral heights.There is interspace height loss at multiple levels with spurring seen on some vertebral bodies. There is sclerosis in the posterior elements. The pedicles are intact. Wires overlie midline and terminate projected over the right SI joint inferiorly. Heavy sclerosis is seen at both SI joints bilaterally and the jointspace is obscured possibly partially fused. IMPRESSION: Unremarkable lumbar spine. Sclerotic possibly fused SI joints. Edited by Marce Mahmood on 02/06/2023 12:52 PM > Interpreting Provider: Ezequiel Cervantes MD on 02/06/2023 1:00 PM Maxi Gregg MD DIAGNOSTIC IMAGI NG ORDERABLES documented in this encounter Visit Diagnoses Diagnosis S/P insertion of spinal cord stimulator- Primary S/P insertion of spinal cord stimulator documented in this encounter Care Teams [employer] Tutor Relationship Specialty Start Date End Date Justen Gale MD PCP - General 07/05/21 documented as of this encounter
--- OUTSIDE RECORDS SUMMARY | 2024-04-26 02:32 | XMS_ITS | Encounter Summary ---
Author Organization [facility] Address [address] [place] [address] Care Team Providers Care Irrigator Sprinkling System Name Role Phone Justen Gale MD Primary Care Provider [phone] Encounter Details Date Type Department Care Team (Latest Contact Info) Description 02/06/2023 12:20 PM CDT - 02/06/2023 12:23 PM CDT Hospital Encounter [facility] - Radiology [address] [place] [address] aMxi Gregg MD [facility] [place] [address] Discharge Disposition: Home or Self Care Social [...] and heating? Not hard at all 12/23/2022 [employer] [place] [facility] - Occupational Stress [...] No 12/23/2022 documented as of this encounter Medications at [...] SoloStar pen 40 (forty) Units once 02/25/2022 FuturedermTOUCH ULTRA test strip 4 times daily 02/01/2021 [...] mouth once daily 07/17/2022 05/19/2023 HYDROcodone-acetaminoph en ([place]) 10-325 MG tablet Take 1 (one) tablet [...] Procedure Name Priority Date/Time Associated Diagnosis Comments XR LUMBAR SPINE 2 OR 3VW Routine 02/06/2023 12:44 PM CDT S/P insertion of spinal cord stimulator documented in this encounter Results * XR LUMBAR SPINE [...] Diagnoses Diagnosis S/P insertion of spinal cord stimulator documented in this encounter Care Teams Irrigator Sprinkling System Relationship Specialty Start Date End Date Justen Gale MD PCP - General 07/05/21 documented as of this encounter
--- OUTSIDE RECORDS SUMMARY | 2024-04-26 02:32 | XMS_ITS | Encounter Summary ---
Author Organization [facility] Address [address] [place] [address] Care Team Providers Care Bilingual Office Assistant Name Role Phone Justen Gale MD Primary Care Provider [phone] Reason for Visit * Reason Comments Establish Care UTI WITH HEMATURIA Encounter Details Date Type Department Care Team (Late st Contact Info) Description 04/27/2022 1:00 PM ABSTRACTOR Office Visit [facility]rology [address] [place] [address] Opal Orellana, CERT PHARMACY TECH-PRISON KEEPER [address] [place] [id number] Urinary tract infection with hematuria, site unspecified (Primary Dx); Acute cystitis with hematuria Social History Tobacco Use Types Packs/Day Years [...] Sign Reading Time Taken Comments Blood Pressure 167/95 04/27/2022 12:57 PM ABSTRACTOR Pulse 82 04/27/2022 12:57 PM ABSTRACTOR Temperature 36.3 ??C (97.3 ??F) 04/27/2022 12:[address] Respiratory Rate 18 04/27/2022 12:57 PM ABSTRACTOR Oxygen Saturation 100% 04/27/2022 12:57 PM ABSTRACTOR Inhaled Oxygen Concentration - - Weight 130.2 kg (287 lb) 04/27/2022 12:57 PM ABSTRACTOR Height - - Body Mass Index 54.23 [...] this encounter Patient Instructions * Patient Instructions* Opal Orellana, CERT PHARMACY TECH-PRISON KEEPER - 04/27/2022 2:01 PM ABSTRACTOR -To schedule an appointment please call [phone]. -To reach the [place] office please call [phone]. -For any nursing or surgery questions please call [phone]. -FAX: We discussed UTI prevention today that includes: Increasing fluids to 2-3 liter of water a day Cranberry supplements or probiotics Estrogen creams if applicable/ post-menopausal Wearing cotton underwear/ white crotch Avoid perfumed body wash About half of women have one UTI in their life 30 % of women have a UTI < 26 years old 20-30 % of adult women have recurrent UTI more than 3 year, or 2 in 6 months [place] seem to be the cause of UTI in 30% of all sexually active women Start prevention Start mybetriq 50 mg RACTOR documented in this encounter Progress Notes * Opal Orellana APRN-CNP - 05/01/2022 11:59 AM CST [facility] Division of Urologic Surgery [facility] [place] Date of Visit: 04/27/2022 Patient Name: Karly Marques : 1955 Medical Record: [id number] Contact (home) Age: [age] year old Sex: female Referring Physician: Maxi Gregg MD [address] [place] [address] Chief Complaint: Recurrent uti History of Present Illness: The patient is a 66 year old female for complaints of recurrent UTI. Pt has had 3 culture proven uti's over the past year. Cultures have grown out the following organisms: E.Coli. Pt does have urgency/frequency as well. Pt does not have a history of stones. UTI sx are not related to sexual intercourse. Pt does not have a history of prior pelvic surgery. Patient is diabetic. Pt has not had a formal workup for these complaints. When was first UTI- post-op after placement of pain stem Amount of fluid in take daily- 64 oz a day?? Menopausal - yes Patient has had breast cancer, mastectomy She had a dorsal column pain stimulator placed 09/16/2021 and reports she had had recurrent UTI since this time and infections in the hardware/device. HX of pulmonary embolism 10/2021 What steps are being taken for prevention now- none She states she needs to get the infections eliminated to get her pain stem placed again. Past Medical History; Past Medical History: Diagnosis Date ??? Breast [...] BATTERY IN THE LOWER LUMBAR REGION Current Medications: Current Outpatient Medications Medication Sig Dispense Refill ??? amitriptyline (ELAVIL) 25 MG tablet at bedtime (Patient not taking: Reported on 04/27/2022) ??? ascorbic acid (Vitamin C) 500 MG tablet Take 1 (one) tablet by mouth 2 times daily 60 tablet 3 ??? exemestane (AROMASIN) 25 MG tablet Take 1 (one) tablet by mouth DAILY ??? HumaLOG KwikPen 100 UNIT/ML pen ??? HYDROcodone-acetaminophen ([place]) 7.5-325 MG tablet Take 1 (one) tablet [...] tablet by mouth 2 times daily 60 tablet3 ??? mirabegron ER 24hr (Myrbetriq) 50 MG tablet Take 1 (one) tablet by mouth once daily Reasons: Urinary Urgency 30 tablet 3 ??? naloxone HCl (NARCAN) 4 MG/0.1ML nasal spray as needed ??? ONETOUCH ULTRA test strip 4 times daily ??? rOPINIRole (REQUIP) 5 MG tablet TAKE 1 TABLET BY MOUTH EVERY NIGHT ??? XARELTO 20 MG tablet No current facility-administered medications for this visit. Allergies; Latex, Ceftriaxone, Cephalosporins, Lorazepam, Trazodone, Levofloxacin, Macrobid [nitrofurantoin], Lisinopril, Ketorolac, Metoclopramide, Oxycodone, Pregabalin, Ceftriaxone sodium in dextrose, Piperacillin-tazobactam in d5w, Reslizumab, and Skin adhesives Family History: Family History Problem Relation Name Age of Onset ??? Heart Disease Mother ??? Diabetes Mother ??? Cancer Father ??? Hemochromatosis Father ??? Cancer Sister ??? Heart Disease Brother noncontributory to this patient complaint Social History: Social History Socioeconomic History ??? [...] on file Housing Stability: Not on file Review of Systems: General: Negative Skin: Negative Eyes: Negative Ears/nose/mouth: Negative Lungs:Negative Heart:Negative Gastrointestinal: negative Genitourinary: See HPI Musculoskeletal: Negative Nervous system: Negative Reproductive system: Negative Hematologic: Negative Lymphatic: Negative Endocrine: Negative Physical Exam: Vital Signs: BP 167/95 (BP SITE: RIGHT ARM, BP POSITION: SITTING, BP CUFF SIZE: 11) Pulse 82 Temp 97.3 ??F (36.3 ??C) (Temporal) Resp 18 Wt 130.2 kg (287 lb) SpO2 100% PVR per bladder scanner: 38 ml Imaging (images and reports reviewed): COMPARISON: ?? 02/09/2022 FINDINGS: The sensitivity for detection of visceral lesions is diminished without the use of intravenous contrast. LOWER CHEST: ?? Unchanged noncalcified pulmonary nodules in the left lower lobe measuring up to 5 mm. ??Calcified pulmonary granulomas. ??Scattered subsegmental?? atelectasis. ??No pleural effusion. ??Mitral valve annulus calcifications. ?? Heart size is normal. LIVER: ?? Normal size. ??No identified cystic or solid masses. GALLBLADDER: ?? Prior cholecystectomy. BILE DUCTS: ?? No intrahepatic or extrahepatic ductal dilatation. SPLEEN: ?? Normal size. ??No focal lesions. PANCREAS: ?? No identified cystic or solid masses. ??No significant calcifications. No adjacent inflammation or peripancreatic fluid collections. Pancreatic duct not dilated. ADRENALS: ?? Normal. KIDNEYS/URINARY TRACT: ?? Unchanged hypoattenuating lesion in the right kidney measuring 15 mm likely reflective of a cyst.. ??No stones. No hydronephrosis or hydroureter. ?Urinary bladder is unremarkable. GI: ?? The stomach is normal. ??The small bowel and colon normal in course and caliber with no evidence of obstruction or inflammation. ??There is colonic diverticulosis with no CT evidence of acute diverticulitis. ??The appendix is normal. PERITONEUM: ?? No ascites or free air. ?? No lymphadenopathy. RETROPERITONEUM: ?? No mass or adenopathy. REPRODUCTIVE: ?? No significant abnormality. VASCULATURE: ?? No abdominal aortic aneurysm. MUSCULOSKELETAL: ?? No acute fractures or aggressive osseous lesions. OTHER: ?? Prior ventral abdominal wall hernia repair with insinuating nodular soft tissue with spiculated margins and internal calcifications along the ventral abdominal wall which is unchanged measuring proximally 37 x 29 x 25 mm likely reflective of scarring. ?? Spinal stimulator lead extends into the thoracic central canal with the tip at the level of lower thoracic vertebra. IMPRESSION: ?? 1. ??No discrete CT findings to explain patient's flank pain/abdominal pain. ??No hydronephrosis or hydroureter. ??No calculi within the urinary tract. ??Normal appendix. 2. ??Colonic diverticulosis with no CT evidence of acute diverticulitis. 3. ??Unchanged noncalcified pulmonary nodules measuring up to 5 mm, compared to CT on 02/09/2022. ??Please refer to follow-up recommendation details on dedicated chest CT on 02/09/2022. REFERENCE: Unless otherwise specified, no follow-up imaging is recommended for incidental renal and adrenal lesions per consensus recommendations based on imaging criteria. Further lab evaluation could be pursued based on clinical findings. Management of the Incidental Renal Mass on CT: A White Paper of the ACR Incidental Findings Committee. J Am Wang Radiol. 2018 May;15(2):264-273. Management of Incidental Adrenal Masses: A White Paper of the ACR Incidental Findings Committee. J Am Wang Radiol. 2017 Nov;14(8):9895-6506. Laboratory Studies: Office Visit on 04/27/22 URINALYSIS AUTO - POINT OF CARE (AMB) [facility] Result Value Ref Range Glucose UA 1+ Bilirubin UA POCT - Ketones UA POCT - Specific Stopover UA 1.025 Blood Urine POCT 1+ pH UA 6.0 Protein UA + Urobilinogen UA - Nitrite UA - WBC UA - Microbiology: 09/2021 E. Coli 12/03/2021 >100,000 e.coli and >100,000 proteus mirabilis 12/2021 E.Coli 04/04/2022 >100,000 E.Coli Pathology: None Diagnosis: This 66 y/o diabetic female with recurrent UTI s/p pain stem placement 09/16/2021 Recommendations: We discussed UTI prevention today that includes: Increasing fluids to 2-3 liter of water a day Cranberry supplements or probiotics Estrogen creams if applicable/ post-menopausal Wearing cotton underwear/ white crotch Avoid perfumed body wash She will begin methenamine 1 GM BID and vitamin C 500 mg BID for prevention Trial of myrbetriq 50 mg - stop oxybutynin Vikor sent today to ensure there is no current infections. We may consider cystoscopy if infections do not cease. ITA Jones 05/01/2022 12:00 PM RACTOR documented in this encounter Procedure Notes * Brigitte Gee MA - 04/27/2022 1:24 PM CSTAssociated Order(s): PROC BLADDER SCAN Procedure(s): FL MSR PVR U&/BLADD CAPCTY US NON Pre-Procedure Diagnose(s): Urinary tract infection with hematuria, site unspecified Bladder scan completed. 38ml post void residual. RACTOR documented in this encounter Plan of Treatment Not on file documented as of this encounter Procedures Procedure Name Priority Date/Time Associated Diagnosis Comments FL MSR PVR U&/BLADD CAPCTY US NON Routine 04/27/2022 1:24 PM ABSTRACTOR Urinary tract infection with hematuria, site unspecified URINALYSIS AUTO - POINT OF CARE (AMB) [facility] Routine 04/27/2022 1:12 PM ABSTRACTOR Urinary tract infection with hematuria, site unspecified documented in this encounter Results * FL MSR PVR U&/BLADD CAPCTY US NON (04/27/2022 1:24 PM ABSTRACTOR) Narrative Brigitte Gee MA - 04/27/2022 1:24 PM ABSTRACTOR Brigitte Gee MA ? 04/27/2022 ??1:24 PM Bladder scan completed. 38ml post void residual. Opal JEAN BAPTISTE PROCEDURE/MIN OR SURGICAL ORDERABLES * URINALYSIS AUTO - POINT OF CARE (AMB) [facility] (04/27/2022 1:12 PM ABSTRACTOR) Glucose UA 1+ Bilirubin UA POCT - Ketones UA POCT - Specific Stopover UA 1.025 Blood Urine POCT 1+ pH UA 6.0 Protein UA + Urobilinogen UA - Nitrite UA - WBC UA - Urine URINE / Unknown 04/27/2022 1 :12 PM ABSTRACTOR Opal Orellana APRN-PRISON KEEPER LAB - POINT O F CARE ORDERABLES documented in this encounter Visit Diagnoses Diagnosis Urinary tract infection with hematuria, site unspecified- Primary Acute cystitis with hematuria Acute cystitis documented in this encounter Care Teams Bilingual Office Assistant Relationship Specialty Start Date End Date Justen Gale MD PCP - General 07/05/21 documented as of this encounter
--- OUTSIDE RECORDS SUMMARY | 2024-04-26 02:32 | XMS_ITS | Encounter Summary ---
Author Organization [facility] Address [address] [place] [address] Care Team Providers Care Senior Compensation Consultant Name Role Phone Justen Gale MD Primary Care Provider [phone] Reason for Visit * Reason Onset Date Comments Follow-up 12/07/2021 Encounter Details Date Type Department Care Team (Late st Contact Info) Description 12/07/2021 Telephone [facility] [address] [facility], [facility] [place] [address] Jazmyne Torres MD [address] [place] [address] Follow-up Social History Tobacco Use Types Packs/Day Years [...] the money to buy more. Never true 07/25/20 22 Within the past 12 months, t [...] encounter Miscellaneous Notes * Telephone Encounter - Jazmyne Torres MD - 12/07/2021 8:35 AM CDT call pt: 1)u/a showed no infection 2)ESR came down along with previous checked CRP 3)as d/w neurosurgeon, cannot get the MRI so will order CT with contrast. documented in this encounter Plan of Treatment Not on file documented as of this encounter Visit Diagnoses Not on filedocumented in this encounter Care Teams Senior Compensation Consultant Relationship Specialty Start Date End Date Justen Gale MD PCP - General 07/05/21 documented as of this encounter
--- OUTSIDE RECORDS SUMMARY | 2024-04-26 02:32 | XMS_ITS | Encounter Summary ---
Author Organization [facility] Address [address] [place] [address] Care Team Providers Care Freelance Recruiter Name Role Phone Justen Gale MD Primary Care Provider [phone] Reason for Visit * Reason Onset Date Comments UTI 06/07/2022 Encounter Details Date Type Department Care Team (Late st Contact Info) Description 06/07/2022 Telephone [facility] [address] [place] [address] Caroline Sultana RN UTI Social History Tobacco Use Types Packs/Day Years [...] Telephone Encounter - Caroline Sultana RN - 06/07/2022 1:34 PM CST Patient reports she was seen in the urgent care and she does NOT have an infection. Still with a lot of pressure with voiding. Stopped Myrbetriq due to hypertension. Could discuss alternate anticholinergic with Lizzy ACEEVDO at her appointment tomorrow. She will keep the appointment. TROMATIC TYPIST * Telephone Encounter - Caroline Sultana RN - 06/07/2022 8:38 AM CST Patient reports nausea vomiting and chills. Denies dizziness or weakness. Feels that she has another UTI. Has an appointment with Esteban ACEVEDO tomorrow which she doesn't think she will be able to make. She was treated for a UTI 1 month ago with fosfomycin. Advised to seen care in the urgent care or ERfor evaluation and treatment. Patient agreed. She will update me later today after she is seen. TROMATIC TYPIST documented in this encounter Plan of Treatment Not on file documented as of this encounter Visit Diagnoses Not on filedocumented in this encounter Care Teams Freelance Recruiter Relationship Specialty Start Date End Date Justen Gale MD PCP - General 07/05/21 documented as of this encounter
--- OUTSIDE RECORDS SUMMARY | 2024-04-26 02:32 | XMS_ITS | Encounter Summary ---
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 Patient reports the line has become more painful, red, and pt reports areas of drainage. Patient also reports recent N/V. Denies fever. Pt reports back incision was done apx 2 weeks ago and has continued to be painful. Pain Back Encounter Details Date Type Department Care Team (Late st Contact Info) Description 12/02/2021 1:20 PM CDT - 12/02/2021 4:42 PM CDT Emergency [facility] [address] [place] [address] Epi Solitario MD [address] [place] [id number] Encounter for assessment of peripherally inserted central catheter (PICC); Allergic contact dermatitis due to adhesives; Infection of spinal cord stimulator, subsequent encounter Discharge Disposition: Home or Self Care Social [...] Sign Reading Time Taken Comments Blood Pressure 150/88 12/02/2021 11:59 AM CDT Pulse 99 12/02/2021 11:59 AM CDT Temperature 36.8 ??C (98.3 ??F) 12/02/2021 11:59 AM C DT Respiratory Rate 18 12/02/2021 11:59 AM CDT Oxygen Saturation 95% 12/02/2021 11:59 AM CDT Inhaled Oxygen Concentration - - Weight 127.9 kg (282 lb) 12/02/2021 11:59 AM CDT Height 154.9 cm (5' 1 ) 12/02/2021 11:59 AM CDT Body Mass Index 53.28 12/02/2021 11:59 AM CDT documented in this encounter Functional [...] No 11/16/2021 documented as of this encounter Discharge Instructions * Discharge Instructions* Hannah Sutton PA-C - 12/02/2021 4:27 PM CDT Your labs today were reassuring. The area around your midline is likely irritated from adhesive bandages. We have changed your adhesives. See attached resources for contact dermatitis care. Continue your antibiotics and follow up with [facility] Infectious Disease at your scheduled appointment on Monday. documented in this encounter Medications at Time [...] hours. 11/16/2021 04/04/2022 amitriptyline (ELAVIL) 25 MG tabletIndications:fo r restless legs Take 1 (one) tablet by mouth at bedtime Reasons: for restless legs 06/05/2023 HUMALOG KWIKPEN 100 UNIT/ML pen Inject 4 (four) Units subcutaneously 3 times daily before meals for 30 days 3.6 mL 11/16/2021 12/16/2021 HYDROcodone-acetamin ophen ([place]) 7.5-325 MG tablet Take 1 tablet by mouth every 6 hours as needed for Pain 04/04/2022 LANTUS SOLOSTAR pen Inject 10 (ten) Units subcutaneously once daily for 30 days 3 mL 11/16/2021 12/16/2021 naloxone HCl (NARCAN) 4 MG/0.1ML nasal spray as needed 05/13/2021 04/20/2023 NYSTOP [id number] UNIT/GM powder APPLY TO THE AFFECTED AREA THREE TIMES DAILY FOR 14 DAYS 11/09/2021 04/04/2022 pantoprazole EC (PROTONIX) 40 MG tablet Take 40 mg by mouth once daily 11/09/2021 04/04/2022 tiZANidine (ZANAFLEX) 4 MG tablet 09/16/2021 04/04/2022 XARELTO 20 MG tablet 11/08/2021 023 documented as of this encounter Progress Notes * Shanthi Ross - 12/02/2021 4:42 PM CDT Discharge Therapeutic Strategy Lead received request from Dr. Cobb to arrange follow-up appointment for Patient with Neurosurgery. This ticket writer sent this request through the work que. Therapeutic Strategy Lead was able to obtain follow-up appointment for Patient with Dr. Germain on 01-03-22 at 4:00 pm. The patient is scheduled for a CT scan on 12-16-21. No further follow-up needs from chief crew scheduler indicated at this time. Shanthi Ross, Discharge Therapeutic Strategy Lead 12/09/2021 documented in this encounter ED Notes * Christin Cohen RN - 12/02/2021 4:42 PM CDT Discharge instructions reviewed with pt, questions answered, pt stated understanding, VSS, pt ambulatory upon discharge with home cane, A&Ox4, Pt d/c via private vehicle to home * Christin Cohen RN - 12/02/2021 2:57 PM CDT Per Hannah MCKEON, blood cultures to NOT be completed from midline * Christin Cohen RN - 12/02/2021 2:12 PM CDT Dressing changed on Midline * Epi Solitario MD - 12/02/2021 2:11 PM CDT ED Attending Note History: Karly Marques is a 66 year old female with PMHx of breast cancer, DVT, GERD, PE (on Xarelto), T2DM, and chronic back pain s/p T8-T9 laminectomy with spinal stimulator placement who is presenting to the ED c/o PICC line problem. Patient reports erythema and pain around RUE PICC line site for thepast three days. She reports recent diagnosis of stimulator battery infection and has been receiving IV Ertapenem, following with infectious disease. Patient states she has still be able to administer antibiotics without issue at home. Denies fever, chills, cough, chest pain, or shortness of breath. Denies numbness or tingling in RUE. Patient states she has also been experiencing right lower backpain that radiates to right abdomen. Patient reports overall feeling more fatigued and malaise. She endorses nausea, increased urinary frequency, and cloudy urine. Patient does have known skin reactions to adhesives. No exacerbating or alleviating factors. Other PMHx as listed below. No other questions or complaints at this time. Past Medical [...] Stability: Not on file Review of Systems: Review of Systems Constitutional: Positive for malaise/fatigue. Negative for fever. HENT: Negative for congestion and sore throat. Eyes: Negative for blurred vision and double vision. Respiratory: Negative for cough and shortness of breath. Cardiovascular: Negative for chest pain and palpitations. Gastrointestinal: Positive for abdominal pain and nausea. Negative for diarrhea and vomiting. Genitourinary: Positive for frequency. Negative for dysuria. Musculoskeletal: Positive for back pain. Negative for neck pain. + RUE pain Neurological: Negative for dizziness, weakness and headaches. Psychiatric/Behavioral: Negative for suicidal ideas. Patient Vitals for the past 6 hrs: Temp Pulse Resp BP 12/02/21 1159 98.3 ??F (36.8 ??C) 99 18 150/88 Exam: Physical Exam Constitutional: General: She is not in acute distress. Appearance: She is well-developed. HENT: Head: Normocephalic and atraumatic. Eyes: Pupils: Pupils are equal, round, and reactive to light. Cardiovascular: Rate and Rhythm: Normal rate and regular rhythm. Heart sounds: Normal heart sounds. No murmur heard. No friction rub. No gallop. Pulmonary: Effort: Pulmonary effort is normal. No respiratory distress. Breath sounds: Normal breath sounds. Abdominal: General: There is no distension. Palpations: Abdomen is soft. Tenderness: There is no abdominal tenderness. Musculoskeletal: General: No deformity. Normal range of motion. Cervical back: Normal range of motion and neck supple. Skin: General: Skin is warm and dry. Comments: RUE PICC line in place with overlying adhesive bandage. There is erythema under adhesive sites with tenderness. No fluctuance or induration. Well-healed horizontal surgical scar to right lower back without induration, fluctuance, or erythema. Neurological: Mental Status: She is alert and oriented to person, place, and time. Cranial Nerves: No cranial nerve deficit. Medical Decision Makin. PICC line problem, back pain DDX: PICC line infection vs post-op infection vs hardware malfunction vs adhesive reaction vs other Plan: Labs, UA, reassess Results: Labs Reviewed COMPREHENSIVE METABOLIC PANEL - Abnormal; Notable for the following components: Result Value Glucose 264 (*) Albumin 3.1 (*) BUN/Creatinine Ratio 25 (*) Albumin/Globulin Ratio 0.6 (*) All other components within normal limits URINALYSIS REFLEX TO MICROSCOPIC NO CULTURE - Abnormal; Notable for the following components: Clarity UA Slt Cloudy (*) Blood UA 1+ (*) Leukocyte Esterase 1+ (*) RBC UA 11-20 (*) Bacteria UA Trace (*) All other components within normal limits Narrative: C-REACTIVE PROTEIN - Abnormal; Notable for the following components: C-Reactive Protein 2.8 (*) All other components within normal limits LIPASE BLOOD - Normal CULTURE BLOOD CULTURE BLOOD CBC W AUTO DIFFERENTIAL ERYTHROCYTE SEDIMENTATION RATE XR HUMERUS RIGHT 2VW OR MORE Final Result PROCEDURE: XR HUMERUS RIGHT 2VW, DATE/TIME OF EXAM: 12/02/2021 3:31 PM, LOCATION [facility] INDICATION: T82.9XXA: Central line complication, initial encounter [...] dislocation. Report dictated by Miracle Moody MD (residential nurse). I, Raquel Cedillo MD have personally reviewed and interpreted this examination/study. > Interpreting Provider: Raquel Cedillo MD on 12/02/2021 3:46 PM ED course: The patient's Oxygen Saturation Monitor was interpreted by me. The reading was 99%. The patient wason RA at the time of the reading. This is interpreted as normal. 2:26 PM- Per chart review, patient was seen in Neurosurgery office earlier this month and had no complaints at that time. She has ID appointment scheduled on 12/06/21. 4:25 PM- ID reviewed image in media tab and suspects erythema due to adhesive bandage. Patient clear for discharge from their perspective, attend follow up as scheduled on 12/06/21. 4:26 PM: I have reviewed her diagnostic findings and she has had an opportunity to ask me any questions she has about care, diagnosis and discharge plan. Patient is comfortable with the discharge plan. She will follow up as directed and will return to the ER if her condition worsens or she developsother urgent concerns. Consult No Procedure done at this time No Ultrasound done at this time No Orders Placed This Encounter ??? CULTURE BLOOD ??? XR HUMERUS RIGHT 2VW OR MORE ??? CBC W AUTO DIFFERENTIAL ??? COMPREHENSIVE METABOLIC PANEL ??? URINALYSIS REFLEX TO MICROSCOPIC NO CULTURE ??? LIPASE BLOOD ??? ERYTHROCYTE SEDIMENTATION RATE ??? C-REACTIVE PROTEIN ??? DISCONTD: 0.9% NaCl injection 3 mL ??? DISCONTD: 0.9% NaCl injection 1-10 mL ??? ondansetron (Zofran) injection 4 mg Medications ondansetron (Zofran) injection 4 mg (4 mg Intravenous $ Given 12/02/21 1254) Clinical Impression: 1. Encounter for assessment of peripherally inserted central catheter (PICC) 2. Allergic contact dermatitis due to adhesives 3. Infection of spinal cord stimulator, subsequent encounter Disposition: Discharge By signing my name below, I, Melvin Jones, attest that this documentation has been prepared under the direction and in the presence of Dr. Solitario. Signed: Kehinde Malhotra. I, Dr. Solitario, personally performed the services described in this documentation. All medical record entries made by the scribe were at my direction and in my presence. I have reviewed the chart and agree that the record reflects my personal performance and is accurate and complete. * Jamila De La Rosa - 12/02/2021 12:10 PM CDT Patient provided with specimen cup for urine sample att. * Brady Quigley RN - 12/02/2021 12:05 PM CDT Pt reports recent infection and surgery on lower right back and has midline on right side for IV antibiotics at home. Patient reports the line has become more painful, red, and pt reports areas of drainage. Patient also reports recent N/V. Denies fever. Pt reports back incision was done apx 2 weeksago and has continued to be painful. * Rosie Hunter - 12/02/2021 11:59 AM CDT Pt ambulated into triage w/ cane Avila hair, avila shirt, dixon pants, cane documented in this encounter Miscellaneous Notes * Clinical References YESSI - Hannah Sutton PA-C - 12/02/2021 4:26 PM CDT [id number] Contact Dermatitis Contact dermatitis is a skin rash caused by something that touches the skin and makes it irritated and inflamed. Your skin may be red, swollen, dry, and cracked. Blisters may form and ooze. The rash will itch. Contact dermatitis often forms on the face and neck, backs of hands, forearms, genitals, and lower legs. But it can affect any area. People can get contact dermatitis from lots of sources. These include: ?? Plants, such as poison sara, oak, or sumac ?? Chemicals in hair dyes and rinses, soaps, solvents, waxes, fingernail south african, and deodorants ?? Jewelry or watchbands made of nickel or cobalt ?? Rubber (including latex) ?? Fragrances (found in perfumes, lipsticks, makeup, and soaps) Contact dermatitis is not passed from person to person. Talk with your healthcare provider about what may have caused the rash. Patch testing, a type of allergy testing, may be used to discover what you are allergic to. You will need to stay away from thesource of the rash in the future to prevent it from coming back. Treatment is done to ease itching and prevent the rash from coming back. The rash should go away shiv few days to a few weeks. Home care Your healthcare provider may prescribe medicine to ease swelling and itching. Follow all instructions when using these medicines. General care ?? Stay away from anything that heats up your skin, such as hot showers or baths, or direct sunlight. This can make itching worse. ?? Apply cold compresses to soothe your sores to help ease your symptoms. Do this for 30 minutes 3 to 4 times a day. You can make a cold compress by soaking a cloth in cold water. Squeeze out excess water. You can add colloidal oatmeal to the water to help reduce itching. For severe itching in a small area, apply an ice pack wrapped in a thin towel. Do this for 20 minutes 3 to 4 times a day. ?? You can also try wet dressings. One way to do this is to wear a wet piece of clothing under a dry one. Wear a damp shirt under a dry shirt if your upper body is affected. This can relieve itching and prevent you from scratching the affected area. ?? You can also help ease large areas of itching by taking a lukewarm bath with colloidal oatmeal added to the water. ?? Use hydrocortisone cream for redness and irritation, unless another medicine was prescribed. Calamine lotion can also relieve mild symptoms. ?? Use oral diphenhydramine to help reduce itching. You can buy this antihistamine at pharmacies and grocery stores. It can make you sleepy, so use lower doses during the daytime. Don't use diphenhydramine if you have glaucoma or have trouble urinating because of an enlarged prostate. ?? If a plant causes your rash, make sure to wash your skin and the clothes you were wearing when you came into contact with the plant. This is to wash away the plant oils that gave you the rash and prevent more or worse symptoms. If you have a pet that's been outdoors, its fur may also have oil from the plant. Bathe your pet with soap or shampoo. ?? Stay away from the substance or object that causes your symptoms. If you can?t stay away from it, wear gloves or some other type of protection Follow-up care Follow up with your healthcare provider, or as advised. When to get medical advice Call your healthcare provider right away if any of these occur: ?? Spreading of the rash to other parts of your body ?? Severe swelling of your face, eyelids, mouth, throat, or tongue ?? Trouble peeing due to swelling in the genital area ?? Fever of 100.4??F (38??C) or higher, or as advised by your provider ?? Redness or swelling that gets worse ?? Pain that gets worse ?? Bad-smelling fluid leaking from the skin ?? Yellow-brown crusts on the open blisters Last Reviewed Date: 2021 ?? [id number] [employer]. All rights reserved. This information is not intended as a substitute for professional medical care. Always follow your healthcare professional's instructions. * Clinical References AVS - Hannah Sutton PA-C - 12/02/2021 4:26 PM CDT [id number] Contact Dermatitis Contact dermatitis is a skin rash caused by something that touches the skin and makes it irritated and inflamed. Your skin may be red, swollen, dry, and cracked. Blisters may form and ooze. The rash will itch. Contact dermatitis often forms on the face and neck, backs of hands, forearms, genitals, and lower legs. But it can affect any area. People can get contact dermatitis from lots of sources. These include: ?? Plants, such as poison sara, oak, or sumac ?? Chemicals in hair dyes and rinses, soaps, solvents, waxes, fingernail south african, and deodorants ?? Jewelry or watchbands made of nickel or cobalt ?? Rubber (including latex) ?? Fragrances (found in perfumes, lipsticks, makeup, and soaps) Contact dermatitis is not passed from person to person. Talk with your healthcare provider about what may have caused the rash. Patch testing, a type of allergy testing, may be used to discover what you are allergic to. You will need to stay away from thesource of the rash in the future to prevent it from coming back. Treatment is done to ease itching and prevent the rash from coming back. The rash should go away shiv few days to a few weeks. Home care Your healthcare provider may prescribe medicine to ease swelling and itching. Follow all instructions when using these medicines. General care ?? Stay away from anything that heats up your skin, such as hot showers or baths, or direct sunlight. This can make itching worse. ?? Apply cold compresses to soothe your sores to help ease your symptoms. Do this for 30 minutes 3 to 4 times a day. You can make a cold compress by soaking a cloth in cold water. Squeeze out excess water. You can add colloidal oatmeal to the water to help reduce itching. For severe itching in a small area, apply an ice pack wrapped in a thin towel. Do this for 20 minutes 3 to 4 times a day. ?? You can also try wet dressings. One way to do this is to wear a wet piece of clothing under a dry one. Wear a damp shirt under a dry shirt if your upper body is affected. This can relieve itching and prevent you from scratching the affected area. ?? You can also help ease large areas of itching by taking a lukewarm bath with colloidal oatmeal added to the water. ?? Use hydrocortisone cream for redness and irritation, unless another medicine was prescribed. Calamine lotion can also relieve mild symptoms. ?? Use oral diphenhydramine to help reduce itching. You can buy this antihistamine at pharmacies and grocery stores. It can make you sleepy, so use lower doses during the daytime. Don't use diphenhydramine if you have glaucoma or have trouble urinating because of an enlarged prostate. ?? If a plant causes your rash, make sure to wash your skin and the clothes you were wearing when you came into contact with the plant. This is to wash away the plant oils that gave you the rash and prevent more or worse symptoms. If you have a pet that's been outdoors, its fur may also have oil from the plant. Bathe your pet with soap or shampoo. ?? Stay away from the substance or object that causes your symptoms. If you can?t stay away from it, wear gloves or some other type of protection Follow-up care Follow up with your healthcare provider, or as advised. When to get medical advice Call your healthcare provider right away if any of these occur: ?? Spreading of the rash to other parts of your body ?? Severe swelling of your face, eyelids, mouth, throat, or tongue ?? Trouble peeing due to swelling in the genital area ?? Fever of 100.4??F (38??C) or higher, or as advised by your provider ?? Redness or swelling that gets worse ?? Pain that gets worse ?? Bad-smelling fluid leaking from the skin ?? Yellow-brown crusts on the open blisters Last Reviewed Date: 2021 ?? [id number] [employer]. All rights reserved. This information is not intended as a substitute for professional medical care. Always follow your healthcare professional's instructions. documented in this encounter Plan of Treatment Not on file documented as of this encounter Procedures Procedure Name Priority Date/Time Associated Diagnosis Comments CULTURE BLOOD Timed 12/02/2021 3:59 PM CDT CULTURE BLOOD Timed 12/02/2021 3:30 PM CDT XR HUMERUS RIGHT 2VW OR MORE STAT 12/02/2021 3:30 PM CDT Encounter for assessment of peripherally inserted central catheter (PICC) C-REACTIVE PROTEIN [place]O 12/02/2021 2: 05 PM CDT CBC W AUTO DIFFERENTIAL STAT 12/02/2021 12:31 PM CDT COMPREHENSIVE METABOLIC PANEL STAT 12/02/2021 12:31 PM CDT LIPASE BLOOD STAT 12/02/2021 12:31 PM CDT URINALYSIS REFLEX TO MICROSCOPIC NO CULTURE STAT 12/02/2021 12:24 PM CDT documented in this encounter Results * CULTURE BLOOD (12/02/2021 3:59 PM CDT) Culture No growth day 5 TERRANCE 12/07/2021 8:02 PM CDT [facility] Blood PERIPHERAL BLOOD / Unknown Venipuncture / Unknown 12/02/2021 3:59 PM CDT 12/02/2021 4:05 PM CDT Hannah Martínez PA-C LAB - MICROBIOLOGY [place] Performing Organization Address [facility]/ZIP Co de Phone Number [facility] [address] [place] [address], [facility] [phone] * CULTURE BLOOD (12/02/2021 3:30 PM CDT) Culture No growth day 5 TERRANCE 12/07/2021 8:02 PM CDT [facility] Blood PERIPHERAL BLOOD / Unknown Venipuncture / Unknown 12/02/2021 3:30 PM CDT 12/02/2021 4:05 PM CDT Hannah Martínez PA-C LAB - MICROBIOLOGY [place] Performing Organization Address [facility]/ZIP Co de Phone Number [facility] [address] [place] [address], [facility] [phone] * XR HUMERUS RIGHT 2VW OR MORE (12/02/2021 3:30 PM CDT) Anatomical Region Laterality Modality Upper Extremity Radiographic Lizeth ging 12/02/2021 3:30 PM CDT Narrative 12/02/2021 3:46 PM CDT PROCEDURE: ??XR HUMERUS RIGHT 2VW, DATE/TIME OF EXAM: ??12/02/2021 3:31 PM, LOCATION ??[facility] INDICATION: T82.9XXA: Central line complication, initial encounter [...] dislocation. Report dictated by Miracle Moody MD (residential nurse). Raquel Perez MD have personally reviewed and interpreted this examination/study. > Interpreting Provider: Raquel Cedillo MD on 12/02/2021 3:46 PM Procedure Note Raquel Cedillo MD - 12/02/2021 PROCEDURE: XR HUMERUS RIGHT 2VW, DATE/TIME OF EXAM: 12/02/2021 3:31 PM, LOCATION [facility] INDICATION: T82.9XXA: Central line complication, initial encounter [...] dislocation. Report dictated by Miracle Moody MD (residential nurse). Raquel Perez MD have personally reviewed and interpreted this examination/study. > Interpreting Provider: Raquel Cedillo MD on 12/02/2021 3:46 PM Hannah Martínez PA-C DIAGNOSTIC IMAGING O RDERABLES * (ABNORMAL) C-REACTIVE PROTEIN (12/02/2021 2:05 PM CDT) C-Reactive Protein 2.8(H) <=0.5 mg/dL 12/02/2021 2:49 PM CDT [facility] Blood BLOOD SPECIMEN / Unknown Venipuncture / Unknown 12/02/2021 2:05 PM CDT 12/02/2021 2:10 PM CDT Hannah Martínez PA-C LAB - CHEMISTRY [facility] [address] [place] [address], [facility] [phone] * LIPASE BLOOD (12/02/2021 12:31 PM CDT) Pathologist [facility] Lipase 19 8 - 78 U/L 12/02/2021 1:25 PM [facility] Blood BLOOD SPECIMEN / Unknown Venipuncture / Unknown 12/02/2021 12:31 PM CDT 12/02/2021 12:59 PM CDT Aaron Matias PA-C LAB - CHEMISTRY [facility] [address] [place] [phone], [facility] [phone] * (ABNORMAL) COMPREHENSIVE METABOLIC PANEL (12/02/2021 12:31 PM CDT) [facility] BUN 16 7 - 26 mg/dL 12/02/2021 1:25 PM [facility] Creatinine 0.64 0.56 - 0.96 mg/dL 12/02/2021 1:25 PM [facility] Sodium 138 136 - 145 mmol/L 12/02/2021 1:25 PM [facility] Potassium 4.1 3.5 - 4.5 mmol/L 12/02/2021 1:25 PM [facility] Chloride 103 98 - 107 mmol/L 12/02/2021 1:25 PM [facility] CO2 25 22 - 29 mmol/L 12/02/2021 1:25 PM [facility] Glucose 264(H) 70 - 115 mg/dL 12/02/2021 1:25 PM [facility] Calcium 9.7 8.4 - 10.2 mg/dL 12/02/2021 1:25 PM [facility] Protein Total 8.3 6.0 - 8.3 g/dL 12/02/2021 1:25 PM [facility] Albumin 3.1(L) 3.4 - 5.0 g/dL 12/02/2021 1:25 PM [facility] Bilirubin Total 0.6 0.2 - 1.2 mg/dL 12/02/2021 1:25 PM [facility] Alkaline Phosphatase 84 40 - 150 U/L 12/02/2021 1:25 PM [facility] ALT 15 5 - 55 U/L 12/02/2021 1:25 PM [facility] [facility] AST 17 5 - 34 U/L 12/02/2021 1:25 PM [facility] Anion Gap 14 8 - 18 12/02/2021 1:25 PM [facility] BUN/Creatinine Ratio 25(H) 7 - 23 12/02/2021 1:25 PM [facility] Osmolality Calculated 296 270 - 300 mOsm/kg 12/02/2021 1:25 PM [facility] Albumin/Globulin Ratio 0.6(L) 1.1 - 2.3 12/02/2021 1:25 PM [facility] eGFR by CKD-EPI >90 >=90 mL/min/1.7 3 m2 12/02/2021 1:25 PM [facility] Blood BLOOD SPECIMEN / Unknown Venipuncture / Unknown 12/02/2021 12:31 PM CDT 12/02/2021 12:59 PM CDT Aaron Matias PA-C LAB - CHEMISTRY ANGEL SPEARS [facility] Organization Address City/State/ZIP Co de Phone Number [facility] [address] [place] [id number], [facility] [phone] * CBC W AUTO DIFFERENTIAL (12/02/2021 12:31 PM CDT) WBC 9.7 3.5 - 10.5 10? 3 /uL 12/02/2021 1:04 PM [facility] RBC 4.42 3.80 - 5.20 10? 6 /uL 12/02/2021 1:04 PM [facility] Hemoglobin 12.7 12.0 - 15.6 g/dL 12/02/2021 1:04 PM [facility] Hematocrit 39.6 35.0 - 45.0 % 12/02/2021 1:04 PM [facility] MCV 89.6 80.7 - 98.3 fL 12/02/2021 1:04 PM [facility] MCH 28.7 26.7 - 34.0 pg 12/02/2021 1:04 PM [facility] MCHC 32.1 30.8 - 35.9 g/dL 12/02/2021 1:04 PM [facility] Platelet Count 301 150 - 400 10? 3 /uL 12/02/2021 1:04 PM [facility] RDW-SD 43.9 36.0 - 50.0 fL 12/02/2021 1:04 [facility] RDW-CV 13.2 11.2 - 14.8 % 12/02/2021 1:04 PM [facility] MPV 10.0 9.4 - 12.9 fL 12/02/2021 1:04 [facility] nRBC Absolute 0.00 0 10? 3 /uL 12/02/2021 1:04 [facility] nRBC Auto 0.0 0 /100 WBC 12/02/2021 1:04 PM [facility] Neutrophils % 61.4 35.0 - 70.0 % 12/02/2021 1:04 [facility] Lymphocytes % 27.9 20.0 - 43.0 % 12/02/2021 1:04 [facility] Monocytes % 6.8 5.0 - 13.0 % 12/02/2021 1:04 PM [facility] Eosinophils % 3.2 0.0 - 6.0 % 12/02/2021 1:04 PM [facility] Basophil % 0.3 0.0 - 2.0 % 12/02/2021 1:04 [facility] Neutrophils Absolute 5.94 1.60 - 7.00 10? 3 /uL 12/02/2021 1:04 PM [facility] Lymphocyte Absolute 2.70 1.10 - 3.90 10? 3 /uL 12/02/2021 1:04 PM [facility] Monocytes Absolute 0.66 0.26 - 1.07 10? 3 /uL 12/02/2021 1:04 PM T [facility] Eosinophils Absolute 0.31 0.00 - 0.47 10? 3 /uL 12/02/2021 1:04 PM T [facility] Basophils Absolute 0.03 0.00 - 0.08 10? 3 /uL 12/02/2021 1:04 PM T [facility] Immature Granulocytes % 0.4 0.0 - 1.0 % 12/02/2021 1:04 PM T [facility] Immature Granulocytes Absolute 0.04 12/02/2021 1:04 PM T [facility] Blood BLOOD SPECIMEN / Unknown Venipuncture / Unknown 12/02/2021 12:31 PM CDT 12/02/2021 12:58 PM CDT Aaron Matias PA-C LAB - HEMATOLOGY ORD ERABLES [address] [address], [facility] [phone] * (ABNORMAL) URINALYSIS REFLEX TO MICROSCOPIC NO CULTURE (12/02/2021 12:24 PM CDT) Color UA Yellow Straw, Yellow 12/02/2021 1:08 PM [facility] Clarity UA t Cloudy(A) Clear 12/02/2021 1:08 PM [facility] Specific [place] UA 1.023 1.005 - 1.030 12/02/2021 1:08 PM [facility] pH UA 5.0 5.0 - 8.0 pH 12/02/2021 1:08 PM [facility] Protein UA Negative Negative 12/02/2021 1:08 PM [facility] Glucose UA Negative Negative 12/02/2021 1:08 PM [facility] Ketone UA Negative Negative 12/02/2021 1:08 PM [facility] Bilirubin UA Negative Negative 12/02/2021 1:08 PM [facility] Blood UA 1+(A) Negative 12/02/2021 1:08 PM [facility] Nitrite UA Negative Negative 12/02/2021 1:08 PM CDT [facility] Leukocyte Esterase 1+(A) Negative 12/02/2021 1:08 PM CDT [facility] Urobilinogen UA Negative Negative mg/dL 12/02/2021 1:08 PM CDT [facility] RBC UA 11-20(A) None Seen, 0-2, 3-5 /HPF 12/02/2021 1:08 PM CDT [facility] WBC UA 0-5 None Seen, 0-5 /HPF 12/02/2021 1:08 PM T [facility] Bacteria UA Trace(A) None /HPF 12/02/2021 1:08 PM CDT [facility] Squamous Epithelial Cells UA 0-2 None Seen, 0-2, 3-5 /HPF 12/02/2021 1:08 PM CDT [facility] Mucus UA 1+ /LPF 12/02/2021 1:08 PM CDT [facility] Urine URINE SPECIMEN OBTAINED BY CLEAN CATCH PROCEDURE / Unknown Collection / Unknown 12/02/2021 12:24 PM CDT 12/02/2021 12:50 PM CDT Narrative [facility] - 12/02/2021 1:08 PM CDT Aaron Matias PA-C LAB - URINALYSIS ORD ERABLES [facility] [address] [place] [address], 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 $ Given 12/02/2021 12:54 PM CDT 4 mg documented in this encounter Active and Recently Administered Medications Times are shown in CDT. Scheduled Medication Order 11/30/2021 12/01/2021 12/02/2021 ondansetron (Zofran) injection 4 mg (COMPLETED) 4 mg, Intravenous, NOW, 1 dose, On Valeri 12/02/21 at 1215, Administer over 2 to 5 minutes. 1254 ($ Given - Prov ider: Olga Cano RN) documented in this encounter Care Teams Box Spring Frame Builder Relationship Specialty Start Date End Date Justen Gale MD PCP - General 07/05/21 documented as of this encounter
--- OUTSIDE RECORDS SUMMARY | 2024-04-26 02:32 | XMS_ITS | Encounter Summary ---
Author Organization [facility] Address [address] [place] [address] Care Team Providers Care Master Fisher Name Role Phone Justen Gale MD Primary Care Provider [phone] Reason for Visit * Auth/Cert (Routine) Specialty Diagnoses / Procedures Referred By Elyssa t Referred To Contact Diagnoses Diagnosis unknown Diagnosis unknown [R69] Procedures AR INSRT/REPL SPINAL NEUROSTIM PULSE GEN/RECV INSERTION/REPLACEMENT SPINAL CORD STIMULATOR Referral ID Status Reason Start Date Expiration Date Visits Re quested Visits Authorized [id number] 1 1 Encounter Details Date Type Department Care Team (Late st Contact Info) Description 02/16/2023 1:10 PM CDT - 02/16/2023 2:45 PM CDT Surgery [facility] PERIOPER[facility]IVE [address] [place] [address] Maxi Gregg MD [facility] [phone] PLACEMENT OF NEW BATTERY IN THE LEFT LUMBAR REGION WELL CONNECTION WITH HER PADDLE AND WIRE SYSTEM Surgery Details Date/Time Status Location OR Service Patient Class Case Class Case Type Trauma Case? 02/16/2023 1:10 PM Posted [facility] MAIN OR OR 07 Neurosurgery Surgery Day Care Elective > 5 days Panel 1 Procedure LRB Anes Op Region Wound Class Comments PLACEMENT OF NEW BATTERY IN THE LEFT LUMBAR REGION WELL CONNECTION WITH HER PADDLE AND WIRE SYSTEM Left Anesthesia to Decide Back Clean Surgeon Surgeon Role Service Panel Maxi Gregg MD Primary Neurosurgery 1 Special Needs NEEDS C-ARM, SAVAGE REP (RODRÍGUEZ [phone]) NOTIFIED PER OFFICE(ANGELINE) 02/01 TM / SURGEON WANTS PATIENT IN PRONE POSITION FOR PROCEDURE Savage rep (Rodríguez) confirmed case - DL-W 02-08 documented in this encounter Social History Tobacco Use Types Packs/Day Years [...] and heating? Not hard at all 12/23/2022 [facility] of Occupat ional Health - Occupational Stress [...] place to sleep or slept in a senior living (including now)? No 12/23/2022 Sex and Gender Information Value Date Recorded Sex Assigned at Not on file Gender Identity Not on file Sexual Orientation Not on file documented as of this encounter Last Filed Vital Signs Vital Sign Reading Time Taken Comments Blood Pressure 112/75 02/16/2023 2:45 PM CDT Pulse 95 02/16/2023 2:45 PM CDT Temperature 36.7 ??C (98.1 ??F) 02/16/2023 2:35 PM CD T Respiratory Rate 19 02/16/2023 2:45 PM CDT Oxygen Saturation 93% 02/16/2023 2:45 PM CDT Inhaled Oxygen Concentration - - [...] Discharge Instructions * Discharge Instructions* Melly Banks, ZAMZAM-NETTA - 02/16/2023 1:56 PM CDT Spine Surgery Patient Discharge Instructions Patient Discharge Instructions Summary: - FOLLOW UP: Please plan to follow-up with Dr. Gregg's Nurse Practitioner (Melly Banks, CURTIS) in 2-3 weeks. You will be contacted with a future appointment date or you may call [phone] to schedule an appointment yourself. The appointment will be located at the [facility], which is the building directly east of [facility], at [address]. Please arrive about 15 minutes early for your appointment in order to expedite the registration process. - QUESTIONS/ISSUES: please call Angeline (Dr. Gregg's nurse) at [phone] - ACTIVITY: Activity as tolerated --Avoid heavy lifting greater than 10 lbs --Avoid repetitive bending, lifting and twisting - DIET: resume your normal diet unless otherwise advised by your PCP - ANTICOAGULATION: you may resume your Xarelto on February 27 - WOUND CARE: --Your wound [...] an emergency you should be evaluated in [facility]'s Emergency Room - HOME MEDICATION: --Resume your [...] mouth once daily 07/17/2022 05/19/2023 HYDROcodone-acetaminoph en ([place]) 10-325 MG tablet Take 1 (one) tablet [...] in this encounter H&P Notes * Melly Banks, SET UP TECHNICIAN-RENOVATION PLANT SUPERVISOR - 02/16/2023 11:23 AM CDT Neurosurgery Preoperative [...] recurrent UTIs are now managed by urology. [facility] NEURO SPINAL SURGERY HIGH RISK [...] DAILY HumaLOG KwikPen 100 UNIT/ML pen HYDROcodone-acetaminophen ([place]) 7.5-325 MG tablet Take 1 (one) tablet [...] HumaLOG KwikPen 100 UNIT/ML pen ??? HYDROcodone-acetaminophen ([place]) 7.5-325 MG tablet ??? hydrOXYzine HCl (Atarax) [...] OR when ready - Dispo: home Melly Banks APRN-RENOVATION PLANT SUPERVISOR 02/16/2023 11:23 AM Ascom Pager documented in [...] Implant Name Type Inv. Item Serial No. Sql Developer Dba Lot No. LRB No. Used [employer] Pro[employer] Plus 5 [id number] Savage Spine Left 1 Implanted Tyler Nguyen MD * Operative - Maxi Gregg MD - 02/16/2023 1:40 PM CDT ??Operative Report ?? PATIENT NAME:??MOHSEN SALAZAR ? DATE OF :?02/16/2023? CSN: [id number] ?? DATE OF ADMISSION: ??02/16/2023?INTRAOP DATE OF OPERATION: ??02/16/2023? PREOPERATIVE DIAGNOSIS: S/p removal of battery of spinal stimulation ?? POSTOPERATIVE DIAGNOSIS: S/p removal of battery of spinal stimulation ?? PROCEDURE PERFORMED: Placement of new battery of spinal stimulation in the left lumbar region and connection with the wires previously coiled in the right lumbar region. ?? SURGEON: Maxi Gregg M.D. ?? SALES DEVELOPMENT CONSULTANT: Tyler Nguyen MD ?ANESTHESIA: General anesthesia. ?? [...] OF CARE Routine 02/16/2023 2:43 PM CDT AR INS/RPLCMT SPI NPGR POCKET 02/16/2023 12:41 PM CDT Diagnosis unknown Special Needs NEEDS C-ARM, SAVAGE REP (RODRÍGUEZ [phone]) NOTIFIED PER OFFICE(ANGELINE) 02/01 TM / SURGEON [...] - 106 mg/dL 02/16/2023 2:50 PM CDT [facility] Specimen Type Cap Fingerstick 2022 2:50 PM CDT [facility] Blood BLOOD SPECIMEN / Unknown 02/16/2023 2:43 PM CDT 02/16/2023 2:50 PM CDT Maxi Gregg MD LAB - POINT OF C ARE ORDERABLES [facility] [address] [place] [address] * (ABNORMAL) PT-INR (02/16/2023 12:20 PM CDT) PT 15.0(H) 12.1 - 14.8 sec 02/16/2023 1:14 PM CDT [facility] INR 1.2(H) 0.9 - 1.1 02/16/2023 1:14 PM CDT [facility] Blood BLOOD SPECIMEN / Unknown Venipuncture / Unknown 02/16/2023 12:20 PM CDT 02/16/2023 12:30 PM CDT Narrative [facility] - 02/16/2023 1:14 PM CDT Conventional Warfarin Anticoagulant Therapy: INR Reference Range: ??2.0-3.0 Intensive Warfarin Anticoagulant Therapy: INR Reference Range: ? 2.5-3.5 Melly Banks APRN-NETTA LAB - COAGULATIO N ORDERABLES Performing Organization Address City/[facility] Co de Phone Number [facility] [address] [place] [address] * (ABNORMAL) GLUCOSE - POINT OF CARE (02/16/2023 12:13 PM CDT) Glucose WB/POC 175(H) 70 - 106 mg/dL 02/16/2023 12:21 PM CDT [facility] Specimen Type Cap Fingerstick 2022 12:21 PM CDT [facility] Blood BLOOD SPECIMEN / Unknown 02/16/2023 12:13 PM CDT 02/16/2023 12:21 PM CDT Maxi Gregg MD LAB - POINT OF C ARE ORDERABLES Performing Organization Address City/State/[facility] Co de Phone Number [facility] [address] [place] [address] documented in this encounter Visit Diagnoses Diagnosis S/P insertion of spinal cord stimulator- Primary Preop examination Preoperative examination, unspecified Diagnosis unknown Other unknown and unspecified cause of morbidity or mortality documented in this encounter Administered Medications Inactive [...] Given 02/16/2023 11:58 AM CDT 1,000 mg BUPivacaine 0.75% - EPINEPHrine 1:200,000 (PF) injection PRN, Starting on Valeri 02/16/23 at 1354, Until Valeri 02/16/23 at 1434, Intra-op $ Given 02/16/2023 1:54 PM CDT 10 mL Operative Site fentaNYL (PF) (Sublimaze) injection 50 mcg 50 [...] be documented in the MAR., PACU HYDROcodone-acetaminophen ([place]) 7.5-325 MG tablet 1 tablet 1 tablet, [...] 11:59 AM CDT 1,500 mg 353.33 mL/hr vancomycin (Vancocin) injection PRN, Starting on Valeri 02/16/23 at 1354, Until Valeri 02/16/23 at 1434, Intra-op $ Given 02/16/2023 1:54 PM CDT 1,000 mg Operative Site documented in this encounter Active and Recently Administered Medications Times are shown in CDT. Scheduled Medication Order 02/14/2023 02/15/2023 02/16/2023 0.9% NaCl injection 3 mL(Linked Group 1) 3 mL, Intracatheter, EVERY 8 HOURS, First dose on Valeri 02/16/23 at 1400, Until Discontinued, Flush peripheral IV catheter with 3 mL of normal saline every 8 hours., Pre-op 1400 (Due) HYDROcodone-acetaminophen ([place]) 7.5-325 MG tablet 1 tablet (COMPLETED) 1 [...] request must be documented in the JUN. 1605 ($ Given - Prov ider: Carolina [...] ($ New Bag/Syri nge - Provider: Brenda Hou, RN)1329 (Due: Stopped - Provider: Brenda Hou RN) Continuous Medication Order 02/14/2023 02/15/2023 02/16/2023 lactated ringers infusion at 20 mL/hr, Intravenous, PRE-OP CONTINUOUS, Starting on Valeri 02/16/23 at 1145, Until Valeri 02/16/23 at 1858, Pre-op 1155 ($ New Bag/Syri nge - Provider: Brenda Hou RN)1431 (Anesthesia Volume Adjustment - Provider: Cordelia Barrientos APRN-DIE CAST PATTERNMAKER) lactated ringers infusion at 125 mL/hr, Intravenous, [...] request must be documented in the JUN. 1158 ($ Given - Prov ider: Brenda [...] Pre-op documented in this encounter Care Teams Master Fisher Relationship Specialty Start Date End Date Justen Gale MD PCP - General 07/05/21 documented as of this encounter
--- OUTSIDE RECORDS SUMMARY | 2024-04-26 02:32 | XMS_ITS | Encounter Summary ---
Author Organization [facility] Address [address] [place] [address] Care Team Providers Care Traffic Survey Technician Name Role Phone Justen Gale MD Primary Care Provider [phone] Reason for Visit * Reason Onset Date Comments Follow-up 01/06/2023 Encounter Details Date Type Department Care Team (Late st Contact Info) Description 01/06/2023 Telephone [facility] - Neurosurgery [address] [place] [address], [facility] [place] [address] Angeline Avila, RN Follow-up Social History Tobacco Use Types Packs/Day [...] and heating? Not hard at all 12/23/2022 [facility] [place] of Occupat ional Health - Occupational Stress [...] slept in a intermediate (including now)? No 12/23/2022 Sex and Gender [...] No 12/23/2022 documented as of this encounter Miscellaneous Notes * Telephone Encounter - Angeline Avila RN - 01/06/2023 1:20 PM CDT Returned patients call per voice mail.Unable to reach left voice mail for a return call. documented in this encounter Plan of Treatment Not on file documented as of this encounter Visit Diagnoses Not on filedocumented in this encounter Care Teams Traffic Survey Technician Relationship Specialty Start Date End Date Justen Gale MD PCP - General 07/05/21 documented as of this encounter
--- OUTSIDE RECORDS SUMMARY | 2024-04-26 02:32 | XMS_ITS | Encounter Summary ---
Author Organization [facility] Address [address] [facility] [place] [address] Care Team Providers Care Property Handler Name Role Phone Justen Gale MD Primary Care Provider [phone] Reason for Visit * Reason Comments Post-Op Wound check Encounter Details Date Type Department Care Team (Late st Contact Info) Description 11/24/2021 11:00 AM CDT Office Visit [facility] Neurosurgery [address] [place] [address], [address] [place] [address] Dasia Mendoza, GAME ATTENDANT-TRANSPORTATION AID [address] [place] [address] Infection of spinal cord stimulator, sequela (Primary [...] Sign Reading Time Taken Comments Blood Pressure 97/56 11/24/2021 10:51 AM CDT Pulse 95 11/24/2021 10:51 AM CDT Temperature - - Respiratory Rate - - Oxygen Saturation 97% 11/24/2021 10:51 AM CDT Inhaled Oxygen Concentration - - Weight - [...] this encounter Patient Instructions * Patient Instructions* Dasia Mendoza APRN-CNP - 11/24/2021 11:28 AM CDT Continue to follow with infectious disease Start physical therapy Follow up with Dr. Gregg in the next 4-6 weeks for discussion of spinal cord stimulator battery replacement -will need clearance from infectious disease before replacement For any questions call Tendo at [phone] documented in this encounter Progress Notes * Dasia Mendoza APRN-CNP - 11/24/2021 11:24 AM CDT Neurosurgery Clinic Progress Note Chief Complaint (CC): Follow up spinal cord stimulator removal HISTORY OF PRESENT ILLNESS (HPI): Patient is a 66 year old female with a history of breast cancer s/p mastectomy, recurrent PE/DVT, DM 2, RLS, and chronic axial low back pain s/p T9-8 laminectomy for dorsal root column stimulator placement with Strava system on 09/16/[address] Gregg, who presented to [facility] as a transfer on 10/30/2021 with pain around incision, reported fevers, and continued wound drainage. OSH ED workup showed WBC 20.5, ESR 14.2, ESR 107, and CT abdomen/pelvis demonstrated increased fat stranding. Patient transferred to U for further care. She was ultimately submitted to removal of battery in the right lower lumbar region with irrigation of wound on 10/30/[address] Gregg, followed by IV antibiotics per infectious disease. Patient returned to the ED on 11/11/2021 with sudden SOB and lung CT incidentally found thickening of soft tissue around spinal cord stimulator leads Pt subsequently diagnosed with pulmonary embolism and started on heparin GTT. CT scan reviewed and compared to prior CT from 10/29. Soft tissue thickening and fluid collection were stable. There were no external signs of wound infection. Sutures were removed from right lower lumbar region. Patient presents to clinic today for a follow up and wound check. She continues to endorse tenderness surrounding her incision that radiates toward the center of her lower back. Patient has remained on IV antibiotics and has an appointment with ID on 12/06/2021. She has started home health and physical therapy is to start tomorrow. Patient denies any new radicular pain, numbness, fever, or chills.She reports significant relief in her pain while she had her spinal cord stimulator and is anxious to have it replaced. PMH: Past Medical History: Diagnosis Date ??? Breast cancer ??? Chest pain ??? DVT (deep venous thrombosis) ??? GERD (gastroesophageal reflux disease) ??? LUL (obstructive sleep apnea) w cpap ??? Other pulmonary embolism without acute cor pulmonale ??? rls ??? Type 2 diabetes mellitus without complications PSH: Past Surgical History: Procedure Laterality Date [...] REGION Meds: Current Outpatient Medications Medication ??? acetaminophen (TYLENOL) 500 MG tablet ??? amitriptyline (ELAVIL) 25 MG tablet ??? ertapenem 1,000 mg in 0.9% NaCl IV 0.9 % 50 mL ??? exemestane (AROMASIN) 25 MG tablet ??? HUMALOG KWIKPEN 100 UNIT/ML pen ??? HYDROcodone-acetaminophen ([place]) 7.5-325 MG tablet ??? insulin pen needle (B-D ULTRAFINE III SHORT PEN) 31G X 8 MM needle ??? Lancets (PresidioTOUCH DELICA PLUS 33G EXTRA FINE LANCET) ??? LANTUS SOLOSTAR pen ??? naloxone HCl (NARCAN) 4 MG/0.1ML nasal spray ??? NYSTOP 522167 UNIT/GM powder ??? ONETOUCH ULTRA test strip ??? pantoprazole EC (PROTONIX) 40 MG tablet ??? rOPINIRole (REQUIP) 5 MG tablet ??? tiZANidine (ZANAFLEX) 4 MG tablet ??? XARELTO 20 MG tablet [...] History Tobacco Use ??? Smoking status: Former Smoker Packs/day: 0.50 Quit date: 12/05/1977 Years since quittin.0 ??? Smokeless tobacco: Never Used Substance Use Topics ??? Alcohol use: No Family: Family History Problem Relation Name Age of Onset ??? Heart Disease Mother ??? Diabetes Mother ??? Cancer Father ??? Hemochromatosis Father ??? Cancer Sister ??? Heart Disease Brother REVIEW OF SYSTEMS Pertinent items are noted in HPI. PHYSICAL EXAM BP 97/56 Pulse 95 SpO2 97% General: No acute distress. HEENT: pupils equal and reactive to light, extra-occular muscles intact, face symmetric, tongue midline. Cardiovascular: warm, well profused Respiratory: non-labored breathing Integument: no lesions found. PICC line in RUE. Right lower lumbar incision is well healed. No evidence of wound breakdown, erythema, edema, or drainage. Neuro: Mental status: Alert, attentive, and oriented x3 (name, place, date). Speech is clear and fluent. Motor: Muscle bulk and tone are normal. Deltoid Bicep Tricep Masking Machine Feeder Wrist Ext Finger ext Hip Flexor Quad Hamstring Tib Ant Gastroc EHL Right 5 5 5 5 5 5 5 5 5 5 5 5 Left 5 5 5 5 5 5 5 5 5 5 5 5 Reflexes: Biceps Triceps Patellar Achilles Right 2+ 2+ 2+ 2+ Left 2+ 2+ 2+ 2+ Sensory: Light touch intact in upper and lower extremities Coordination: No fasciculations Gait/Stance: Posture is normal. No obvious coronal or sagittal imbalance. Slow antalgic gait with cane RADIOLOGY: No new neuroradiological imaging for review. Assessment/Plan: Karly Marques is a 66 year old female with history of chronic axial low back pain s/p T9-8 laminectomy for dorsal root column stimulator placement with Strava system on 09/16/21 by anthony Traylor/bstimulator batter infection s/p washout and stimulator battery removal on 10/30/21 followed by IV antibiotics per ID, who presents to clinic today for a follow up wound check. The patient is doing overall well and has remained afebrile. She continues to endorse tenderness surrounding her incision, but denies any new concerns. Patient remains on IV antibiotics with follows up on 12/06/21 with ID. Her exam has remained stable and incision is well healed. She starts PT tomorrow. Educated patient that she will need clearance by ID prior to having battery replaced. We will plan to have the patient follow up with Dr. Gregg in 4-6 weeks to discuss insertion of spinal cord stimulator battery. ITA Cabello 11/24/2021 11:24 AM documented in this encounter Plan of Treatment Not on file documented as of this encounter Visit Diagnoses Diagnosis Infection of spinal cord stimulator, sequela- Primary documented in this encounter Care Teams Property Handler Relationship Specialty Start Date End Date Justen Gale MD PCP - General 07/05/21 documented as of this encounter
--- OUTSIDE RECORDS SUMMARY | 2024-04-26 02:32 | XMS_ITS | Encounter Summary ---
Author Organization [facility] Address [address] [facility] [place] [address] Care Team Providers Care Metal Fabricator Welder Name Role Phone Justen Gale MD Primary Care Provider [phone] Encounter Details Date Type Department Care Team (Late st Contact Info) Description 05/04/2022 Orders Only [facility] [address] [address] Opal Orellana, LEGAL BILLING ANALYST-CNC MACHINE OPERATOR [address] [place] [address] Urinary tract infection with hematuria, site unspecified ; Allergy to drug Social History Tobacco Use Types Packs/Day Years [...] No 11/16/2021 documented as of this encounter Progress Notes * Opal Orellana APRN-CNP - 05/04/2022 1:01 PM CST Spoke to patient about her antibiotics, fosfomycin is not covered by insurance, she has no other oral options at this time due to allergies, patient has not had allergy testing to confirm the allergies. Advised she does this so she has other options in the future for treatment for infections. She states she will call her insurance today as well. - Called for prior auth for medication- ref # [id number] Ref # [id number] decision w/in 24-48 hours will notify pharmacy. ITA Jones 05/04/2022 2:45 PM [address] documented in this encounter Plan of Treatment Not on file documented as of this encounter Visit Diagnoses Diagnosis Urinary tract infection with hematuria, site unspecified- Primary Allergy to drug Other drug allergy documented in this encounter Care Teams Metal Fabricator Welder Relationship Specialty Start Date End Date Justen Gale MD PCP - General 07/05/21 documented as of this encounter
--- OUTSIDE RECORDS SUMMARY | 2024-04-26 02:32 | XMS_ITS | Encounter Summary ---
Author Organization [facility] Address [address] [place] [address] Care Team Providers Care Silica Spray Mixer Name Role Phone Justen Gale MD Primary Care Provider [phone] Reason for Visit * Reason Onset Date Comments Surgery Scheduling 01/25/2023 Encounter Details Date Type Department Care Team (Late st Contact Info) Description 01/25/2023 Telephone [facility] [address] [place] [address], [place] [address] Angeline Avila, lawyer real estate Scheduling Social History Tobacco Use Types Packs/Day [...] and heating? Not hard at all 12/23/2022 [facility] [place] of Occupat ional Health - Occupational Stress [...] Telephone Encounter - Angeline Avila RN - 01/25/2023 4:12 PM CDT Left voice mail adv patient to return call to schedule surgery. documented in this encounter Plan of Treatment Not on file documented as of this encounter Visit Diagnoses Not on filedocumented in this encounter Care Teams Silica Spray Mixer Relationship Specialty Start Date End Date Justen Gale MD PCP - General 07/05/21 documented as of this encounter
--- OUTSIDE RECORDS SUMMARY | 2024-04-26 02:32 | XMS_ITS | Encounter Summary ---
Author Organization [facility] Address [address] [facility] [place] [address] Care Team Providers Care Notereader Name Role Phone Justen Gale MD Primary Care Provider [phone] Reason for Visit * Reason Onset Date Comments General 01/11/2023 Encounter Details Date Type Department Care Team (Late st Contact Info) Description 01/11/2023 Telephone [facility] Neurosurgery [address] [facility], [place] [address] Angeline Avila, RN General Social History Tobacco Use Types Packs/Day Years [...] and heating? Not hard at all 12/23/2022 [facility] [place] of Occupat ional Health - Occupational Stress [...] slept in a longterm (including now)? No 12/23/2022 Sex and Gender [...] Telephone Encounter - Angeline Avila RN - 01/11/2023 9:15 AM CDT Returned patients call per voice mail stating she had a fall and questioned if surgery should be canceled. Left vm adv patient surgery can be rescheduled in a month. documented in this encounter Plan of Treatment Not on file documented as of this encounter Visit Diagnoses Not on filedocumented in this encounter Care Teams Notereader Relationship Specialty Start Date End Date Justen Gale MD PCP - General 07/05/21 documented as of this encounter
--- OUTSIDE RECORDS SUMMARY | 2024-04-26 02:32 | XMS_ITS | Encounter Summary ---
Author Organization [facility] Address [address] [facility] [place] [address] Care Team Providers Care Digital Communications Manager Name Role Phone Justen Gale MD Primary Care Provider [phone] Encounter Details Date Type Department Care Team (Late st Contact Info) Description 12/15/2022 Orders Only [facility] - Neurosurgery [address] [place] [address], [place] [address] Maxi Gregg MD [address] [place] [address] [place] [address] Pre-op testing ; Low back [...] No 11/16/2021 documented as of this encounter Plan of Treatment Not on file documented as of this encounter Visit Diagnoses Diagnosis Pre-op testing- Primary Preoperative examination, unspecified Low back pain, unspecified back pain laterality, unspecified chronicity, unspecified whether sciatica present documented in this encounter Care Teams Digital Communications Manager Relationship Specialty Start Date End Date Justen Gale MD PCP - General 07/05/21 documented as of this encounter
--- OUTSIDE RECORDS SUMMARY | 2024-04-26 02:32 | XMS_ITS | Encounter Summary ---
Author Organization [facility] Address [address] [facility] [place] [address] Care Team Providers Care Paint Formulator Name Role Phone Justen Gale MD Primary Care Provider [phone] Encounter Details Date Type Department Care Team (Late st Contact Info) Description 08/15/2022 Orders Only [facility] [address] [address] Opal Orellana, SPECIAL ASSETS OFFICER-AIRBORNE AND AIR DELIVERY SPECIALIST [address] [place] [id number] Recurrent UTI ; OAB (overactive bladder) Social History Tobacco Use Types Packs/Day Years [...] as of this encounter Visit Diagnoses Diagnosis Recurrent UTI- Primary Urinary tract infection, site not specified OAB (overactive bladder) Hypertonicity of bladder documented in this encounter Care Teams Paint Formulator Relationship Specialty Start Date End Date Justen Gale MD PCP - General 07/05/21 documented as of this encounter
--- OUTSIDE RECORDS SUMMARY | 2024-04-26 02:32 | XMS_ITS | Encounter Summary ---
Author Organization [facility] Address [address] [facility] [place] [address] Care Team Providers Care Race Steward Name Role Phone Justen Gale MD Primary Care Provider [phone] Reason for Visit * Reason Comments Cystoscopy Uti w hematuria Encounter Details Date Type Department Care Team (Late st Contact Info) Description 06/08/2022 1:00 PM BINDER CUTTER Procedure visit [facility] [address] [place] [address] Opal Orellana, COLLISION WORKER-GENERAL ACCOUNTING CLERK [address] [place] [id number] Urinary tract infection with hematuria, site unspecified ; Chronic bladder pain; Microhematuria Social History Tobacco Use Types Packs/Day Years [...] Sign Reading Time Taken Comments Blood Pressure 179/98 06/08/2022 12:49 PM BINDER CUTTER Pulse 80 06/08/2022 12:49 PM BINDER CUTTER Temperature - - Respiratory Rate - - Oxygen Saturation 97% 06/08/2022 12:49 PM BINDER CUTTER Inhaled Oxygen Concentration - - Weight - [...] encounter Patient Instructions * Patient Instructions* Opal Orellana APRN-CNP - 06/08/2022 1:25 PM BINDER CUTTER -To schedule an appointment please call [phone]. -To reach the [place]'s office please call [phone]. -For any nursing or surgery questions please call [phone]. -FAX: ER CUTTER documented in this encounter Progress Notes * Opal Orellana APRN-CNP - 06/08/2022 1:16 PM CST [facility] Urologic [facility] ITA Jones Date of Visit: 06/08/2022 Patient Name: Karly Marques : 1955 Medical Record: [id number] Contact (home) Age: [age] year old Sex: female Referring Physician: Justen Gale MD [address] [place], [place] [id number] Chief Complaint: Recurrent uti History of Present Illness: The patient is a 67 year old female for complaints of recurrent [...] to get her pain stem placed again. Update- Patient here for cystoscopy for microhematuria, she presented to the ER yesterday at OSH for UTI symptoms- her urine culture was negative. She reports persistent lower pelvic pain, the pain wakes her up at night on occasion. She continues to take methenamine and Vit C for her UTI's daily. She denies gross hematuria. Her imaging was reviewed from 03/2022 at OSH. Past Medical History; Past Medical History: Diagnosis [...] (ELAVIL) 25 MG tablet at bedtime ??? amLODIPine (Norvasc) 5 MG tablet Take 1 (one) tablet by mouth once daily ??? ascorbic acid (Vitamin C) 500 MG tablet Take 1 (one) tablet by mouth 2 times daily 60 tablet 3 ??? exemestane (AROMASIN) 25 MG tablet Take 1 (one) tablet by mouth DAILY ??? HumaLOG KwikPen 100 UNIT/ML pen ??? HYDROcodone-acetaminophen ([place]) 7.5-325 MG tablet Take 1 (one) tablet by mouth every 6 hours as needed for Pain ??? insulin pen needle (B-D ULTRAFINE III SHORT PEN) 31G X 8 MM needle 4 times daily 300 Each PRN ??? Lancets (Arrive TechnologiesTOUCH DELICA PLUS 33G EXTRA FINE LANCET) USE FOUR TIMES DAILY ??? Lantus SoloStar pen ADMINISTER 50 UNITS UNDER THE SKIN EVERY MORNING ??? methenamine hippurate (Hiprex) 1 GM tablet Take 1 (one) tablet by mouth 2 times daily 60 tablet3 ??? mirabegron ER 24hr (Myrbetriq) 50 MG tablet Take 1 (one) tablet by mouth once daily Reasons: Urinary Urgency (Patient not taking: Reported on 06/08/2022) 30 tablet 3 ??? naloxone HCl (NARCAN) [...] Stability: Not on file Review of Systems: A 10-point ROS was reviewed during this clinic visit. Pertinent positive/negative systems are noted above Physical Exam: Obese Gen: Alert and oriented x3 Head: normocephalic Lungs: Non-labored respirations Heart: RRR Abd: soft, nontender, nondistended : no CVA tenderness, no suprapubic pain MSK: normal gait and strength Skin: No rashes Urethra normal on exam in cysto today Vital Signs: BP 179/98 Pulse 80 SpO2 97% PVR per bladder scanner: 38 ml Imaging [...] Findings Committee. J Am Wang Radiol. 2017 Nov;14(8):2593-1395. Laboratory Studies: Procedure visit on 06/08/22 URINALYSIS AUTO - POINT OF CARE (AMB) [facility] Result Value Ref Range Glucose UA 2+ Bilirubin UA POCT - Ketones UA POCT - Specific [place] UA 1.030 Blood Urine POCT 1+ pH UA 5.5 Protein UA +- Urobilinogen UA - Nitrite UA - WBC UA - Specimen: Urine Component Ref Range & Units 1 d ago Comments Color, ur Yellow Yellow Testing performed by: [address] [address] Clarity, ur Clear Clear Testing performed by: [address] [address] Specific gravity, ur 1.003 - 1.030 1.020 Testing performed by: [address] [address] pH, urine 6.0 Testing performed by: [address] [address] Protein, ur ql Negative Negative Testing performed by: [address] [address] Glucose, ur ql Negative Negative Testing performed by: [address] [address] Ketones, ur Negative Negative Testing performed by: [address] [address] Bilirubin, ur Negative Negative Testing performed by: [address] [address] Blood, ur Negative Trace??Abnormal?? Testing performed by: [address] [address] Urobilinogen, ur <2.0 mg/dL 0.2 Testing performed by: [address] [address] Nitrite, ur Negative Negative Testing performed by: [address] [address] Leukocyte esterase, ur Negative Negative Testing performed by: [address], [place]., [address] UA reflex comment Reflex to microscopic UA will be performed Microbiology: 09/2021 E. Coli 12/03/2021 >100,000 e.coli and >100,000 proteus mirabilis 12/2021 E.Coli 04/04/2022 >100,000 E.Coli Pathology: None Diagnosis: This 66 y/o diabetic female with recurrent UTI s/p pain stem placement 09/16/2021 with signs. Recommendations: We reviewed IC diet and a plan for her to try to reduce her pelvic pain. She was given IC pamphlet today and IC diet. She plans to stay on the methenamine 1 GM BID and Vit C She can follow up with Dr. Gregg at this point, she is infection free and her work up is negative. She agrees with the plan and will contact me if she needs any cultures near the home, will treat accordingly. Will add hydroxyzine 25 mg daily (at bedtime only if fatigue occurs) She will change to trospium 20 mg BID and stop myrbetriq 50 mg due to changes in BP while taking it. ITA Jones 06/08/2022 1:16 PM ER CUTTER documented in this encounter Procedure Notes * Opal Orellana APRN-CNP - 06/08/2022 2:18 PM CSTAssociated Order(s): PROC CYSTOURETHROSCOPY Procedure(s): MI CYSTOURETHROSCOPY Pre-Procedure Diagnose(s): Microhematuria Cystoscopy procedure note Indication for Procedure: microhematuria Description: Pt placed on the procedure table in the supine/lithotomy position. she was prepped/draped in standard fashion. Pt correctly identified and time out performed. A flexible cystoscope was introduced perurethra withthe following findings. Urethra: Normal caliber, no stricture. No masses. Urethral sphincter with good coaptation Bladder neck patent without contracture Trigone - UO's orthotopic bilaterally. Clear efflux seen from both ureteral orifices. Mucosa normal without lesion Bladder - normal mucosa without tumor/stone/erythema. No FB present. No trabeculation. No cellules or diverticula. No fistula. Scope was retroflexed to assess entire surface of bladder. IMPRESSION: Normal exam of the bladder PLAN: follow up as scheduled, will treat for IC at this time. Will review the IC diet. ITA Jones ER CUTTER documented in this encounter Plan of Treatment Not on file documented as of this encounter Procedures Procedure Name Priority Date/Time Associated Diagnosis Comments MI CYSTOURETHROSCOPY Routine 06/08/2022 2:18 PM BINDER CUTTER Microhematuria URINALYSIS AUTO - POINT OF CARE (AMB) [facility] Routine 06/08/2022 Urinary tract infection with hematuria, site unspecified documented in this encounter Results * MI CYSTOURETHROSCOPY (06/08/2022 2:18 PM BINDER CUTTER) Narrative Opal Orellana APRN-CNP - 06/08/2022 2:18 PM BINDER CUTTER Opal Orellana APRN-CNP ? 06/09/2022 ??9:33 AM [...] - POINT OF CARE (AMB) [facility] (06/08/2022) Glucose UA 2+ Bilirubin UA POCT - Ketones UA POCT - Specific [place] UA 1.030 Blood Urine POCT 1+ pH UA 5.5 Protein UA +- Urobilinogen UA - Nitrite UA - WBC UA - Urine URINE / Unknown 06/08/2022 Opal Orellana COLLISION WORKER-GENERAL ACCOUNTING CLERK LAB - POINT O F CARE ORDERABLES documented in this encounter Visit Diagnoses Diagnosis Urinary tract infection with hematuria, site unspecified- Primary Chronic bladder pain Microhematuria Microscopic hematuria documented in this encounter Care Teams Race Steward Relationship Specialty Start Date End Date Justen Gale MD PCP - General 07/05/21 documented as of this encounter
--- OUTSIDE RECORDS SUMMARY | 2024-04-26 02:32 | XMS_ITS | Encounter Summary ---
Author Organization [facility] [address] [place] [place] [address] Care Team Providers Care Pier Runner Name Role Phone Justen Gale MD Primary Care Provider [phone] Reason for Visit * Auth/Cert (Routine) Specialty Diagnoses / Procedures Referred By Elyssa t Referred To Contact Diagnoses Acute Headache Referral ID Status Reason Start Date Expiration Date Visits Re quested Visits Authorized [id number] 1 1 Encounter Details Date Type Department Care Team (Latest Contact Info) Description 12/23/2022 9:21 PM CDT - 12/26/2022 6:00 PM CDT Hospital Encounter [facility] ACUTE [address] [place] [address] Jerrod Pennington MD [address] [id number] Hospitalist Discharge Disposition: Home or Self Care [...] and heating? Not hard at all 12/23/2022 [facility] Occupat ional Health - Occupational Stress [...] place to sleep or slept in a fdc (including now)? No 12/23/2022 Sex and Gender Information Value Date Recorded Sex Assigned at Not on file Gender Identity Not on file Sexual Orientation Not on file documented as of this encounter Last Filed Vital Signs Vital Sign Reading Time Taken Comments Blood Pressure 151/93 12/26/2022 12:31 PM CDT Pulse 87 12/26/2022 12:31 PM CDT Temperature 36.6 ??C (97.9 ??F) 12/26/2022 12:31 PM C DT Respiratory Rate 17 12/26/2022 4:42 AM CDT Oxygen Saturation 99% 12/26/2022 12:31 PM CDT Inhaled Oxygen Concentration 21% 12/26/2022 4 :08 AM CDT Weight 127.9 kg (282 lb) 12/26/2022 9:00 AM CDT Height 154.9 cm (5' 1 ) 12/23/2022 11:06 PM CDT Body Mass Index 53.28 12/24/2022 11:25 AM CDT documented in this encounter Functional [...] 12/23/2022 documented as of this encounter Discharge Summaries * Shahbaz Dexter MD - 12/26/2022 4:01 PM CDT Physician Discharge Summary Patient Name: Karly Marques Date of : 1955 Admit date: 12/23/2022 Discharge date: 12/26/2022 Admitting Physician: Jerrod Rodriguez MD Attending Physician: Jerrod Rodriguez MD Discharge Physician: Jerrod Rodriguez MD Admission Diagnosis: headache Past Medical History Past Medical History: Diagnosis Date ??? Breast cancer (CMS/HCC) ??? Chest pain ??? DVT (deep venous thrombosis) ([facility]) ??? GERD (gastroesophageal reflux disease) ??? LUL (obstructive sleep apnea) w cpap ??? Other pulmonary embolism without acute cor pulmonale (CMS/HCC) ??? rls ??? Type 2 diabetes mellitus without complications ([facility]) Discharge Diagnoses Postconvulsive syndrome Diagnostic Studies CTA head and neck- prelim [facility] Karly Marques is a 67 year old female with past medical hx significant for DM2, Breast CA, Chronic back pain on spinal pain stimulator, LUL, depression, peripheral neuropathy, PE on Xarelto admitted for persistent CAZARES and neck pain after a fall on GL backwards hitting her head to a brick. She was transferred from [facility], workup with CT head and CT C spine unremarkable. Her headache improved during hospital stay. CTA head and neck obtained with prelim CORNELL. ?? Condition at discharge: stable Disposition: home Code Status At Discharge Full Code Discharge Exam: Mental Status Awake, alert, follows commands Orientation Person, place, time, and situation Language Fluency intact, comprehension intact, repetition intact Visual Shafer Intact bilaterally to confrontation Neglect No visual neglect noted, no tactile neglect noted ?? Cranial Nerves II Pupils 3 and bilaterally reactive to light. Fundoscopic exam not performed. VIII Hearing is intact bilaterally to finger rub. III/IV/ Extraocular muscles intact. No diplopia, ptosis, nystagmus or convergence abnormalities noted. IX/X Palate elevated symmetrically without phonation abnormalities noted. V Facial sensation symmetric to light touch and intact bilaterally. Corneal reflex not examined. XIHead turning limited by pain. VII No facial palsy noted. XII Tongue is midline with normal movements and no atrophy noted. ?? Motor Function Movement No abnormalities noted Bulk No abnormalities noted Tone No abnormalities noted ? Proximal Upper Distal Upper Proximal Lower Distal Lower Right 5/5 5/5 5/5 5/5 Left 5/5 5/5 5/5 5/5 ?? Muscle Stretch Reflexes ?? BI BR PAT ACH Right 1 1 1 1 Left 1 1 1 1 ?? Sensory Light Touch Symmetric and intact bilaterally ?? Cerebellar ?? FNF Right intact Left Intact ?? Gait Deferred Patient Instructions: Please f/u in Neurology clinic, you will receive a phone call to schedule the follow up. Current Discharge Medication List START taking these medications Instructions Authorizing Provider lidocaine 5 % patch Commonly known as: Lidoderm Quantity Dispensed: 28 patch Apply 1 (one) patch to skin every 12 hours for 14 days Apply patch to most painful area and remove after 12 hours. May reapply a new patch 12 hours later. Teodora Greene MD CONTINUE taking these medications which have NOT CHANGED Instructions Authorizing Provider amitriptyline 25 MG tablet Commonly known as: Elavil at bedtime amLODIPine 5 MG tablet Commonly known as: Norvasc Take 1 (one) tablet by mouth once daily ascorbic acid 500 MG tablet Commonly known as: Vitamin C Quantity Dispensed: 60 tablet Take 1 (one) tablet by mouth 2 times daily Opal Orellana APRN-GLUE CLAMP OPERATOR B-D ULTRAFINE III SHORT PEN 31G X 8 MM needle Generic drug: insulin pen needle Quantity Dispensed: 300 Each 4 times daily Mckenzie Johnston MD exemestane 25 MG tablet Commonly known as: Aromasin Take 1 (one) tablet by mouth DAILY HumaLOG KwikPen 100 UNIT/ML pen Generic drug: insulin lispro HYDROcodone-acetaminophen 7.5-325 MG tablet Commonly known as: [place] Take 1 (one) tablet by mouth every 6 hours as needed for Pain hydrOXYzine HCl 25 MG tablet Commonly known as: Atarax Quantity Dispensed: 30 tablet Take 1 (one) tablet by mouth 2 times daily ITA Jones Lantus SoloStar pen Generic drug: insulin glargine ADMINISTER 50 UNITS UNDER THE SKIN EVERY MORNING methenamine hippurate 1 GM tablet Commonly known as: Hiprex Quantity Dispensed: 60 tablet TAKE 1 TABLET BY MOUTH TWICE DAILY ITA Jones naloxone HCl 4 MG/0.1ML nasal spray Commonly known as: Narcan as needed ONETOUCH DELICA PLUS 33G EXTRA FINE LANCET USE FOUR TIMES DAILY OneTouch Ultra test strip Generic drug: blood glucose 4 times daily oxyBUTYnin CR 24hr 15 MG tablet Commonly known as: Ditropan XL Quantity Dispensed: 90 tablet Take 1 (one) tablet by mouth once daily ITA Jones rOPINIRole 5 MG tablet Commonly known as: Requip TAKE 1 TABLET BY MOUTH EVERY NIGHT trospium 20 MG tablet Commonly known as: Sanctura Quantity Dispensed: 60 tablet Take 1 (one) tablet by mouth 2 times daily ITA Jones Xarelto 20 MG tablet Generic drug: rivaroxaban Discharge Procedure Orders Referral to Neurology Standing Status: Future Referral Priority: Routine Referral Type: Consultation Referral Reason: Specialty Services Required Number of Visits Requested: 1 Follow up Instructions Please continue to wear your home cpap/bipap during times of sleepiness, unless otherwise instructed. Some medications that you may have been prescribed or were used during a procedure may increase the chance of sleep apnea complications. Discharge time: 30 minutes Shahbaz Dexter MD Associated attestation - Jerrod Pennington MD - 12/26/2022 4:40 PM CDT Reviewed history, examined the patient, agree with documented resident notes with the exceptions that are indicated below. I have formulated the diagnosis and plan of management. History Fall on 12/11/22 - fell back words on to mulch, hit head on brick edging Reports nausea, vomiting x 1. 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 + right leg weakness + blurred vision Denies LOC Symptoms have improved and reports ongoing neck pain Examination neck pain and restricted neck movement Right arm 5/5 hand 4+/5 Right leg 3/4 initially and improves to 4-/5 - knee flexion, extension Ankle dorsiflexion, plantar flexion 4+/5 Hyporeflexic Plan Post concussion syndrome headache, blurred vision and cognitive slowing Report of right side intermittent weakness at OSH Currently headache is well controlled on home opiate Recommend MRI Brain and cervical spine W/ Wo contrast to rule out structural etiology could not be obtained due to open pump without battery CT head and cervical spine imaging reviewed CTA prelim report showed no dissection Follow up in neurology clinic and patient was educated about post concussion symptoms Please see resident note for details Signed Electronically Jerrod Rodriguez MD [employer] Worker of Neurology, documented in this encounter Medications at Time [...] mouth once daily 07/17/2022 05/19/2023 HYDROcodone-acetaminoph en (F[place]) 10-325 MG tablet Take 1 (one) tablet by mouth every 8 hours as needed for Pain Takes 3-4 times a day 05/20/2023 hydrOXYzine HCl (Atarax) 25 MG tabletIndications:Chron ic bladder pain Take 1 (one) tablet by mouth 2 times daily 30 tablet 2 06/08/2022 02/23/2023 lidocaine (Lidoderm) 5 % patch Apply 1 (one) patch to skin every 12 hours for 14 days Apply patch to most painful area and remove after 12 hours. May reapply a new patch 12 hours later. 28 patch 12/26/2022 01/09/2023 methenamine hippurate (Hiprex) 1 GM tablet TAKE 1 TABLET BY MOUTH TWICE DAILY 60 tablet 3 12/14/2022 07/12/2023 naloxone HCl (NARCAN) 4 MG/0.1ML nasal spray [...] as of this encounter Progress Notes * Ish Andres RN - 12/26/2022 4:25 PM CDT Problem: Fall Risk Goal: Fall risk and fall related injury risk are minimized (interventions related to the fall risk can be found in the flowsheet documentation) Outcome: Adequate for Discharge Problem: Pain/Discomfort Goal: Patient exhibits reduced pain/discomfort as evidenced by pain scores Outcome: Adequate for Discharge Goal: Patient uses pharmacological and non-pharmacological pain management strategies. Outcome: Adequate for Discharge Goal: Patient verbalizes acceptable level of pain relief and ability to engage in desired activity. Outcome: Adequate for Discharge * Leah Ochoa RN - 12/26/2022 4:13 PM CDT DISCHARGE NOTE: Pt is dc'd to home, no further needs identified at this time. Transportation: family Leah/NURIS MOSHER/BSN/CM [phone] * Cipriano Martin RN - 12/26/2022 2:19 PM CDT Problem: Fall Risk Goal: Fall risk and fall related injury risk are minimized (interventions related to the fall risk can be found in the flowsheet documentation) Outcome: Progressing Problem: Pain/Discomfort Goal: Patient exhibits reduced pain/discomfort as evidenced by pain scores Outcome: Progressing Goal: Patient uses pharmacological and non-pharmacological pain management strategies. Outcome: Progressing Goal: Patient verbalizes acceptable level of pain relief and ability to engage in desired activity. Outcome: Progressing * Teodora Greene MD - 12/26/2022 9:31 AM CDT Neurology Progress Note Patient: Karly Marques Age: [age] year old Admission Date and Time: 12/23/2022 Subjective Chief Complaint: CAZARES and Neck pain History of Presenting Illness: Karly Marques is a 67 year old female with past medical hx significant for DM2, Breast CA, Chronic back pain on spinal pain stimulator, LUL, depression, peripheral neuropathy, PE on Xarelto admitted for persistent CAZARES and neck pain. Patient reports falling backwards when working in garden, hit her head wo LOC. She got CTH and neckin OSH which reportedly was unremarkable. Since then she is having bilateral temporal CAZARES radiation to occipital area. Reports photophobia and phonophobia along with intermittent word finding difficulty, nausea and fatigue. Denies fever, seizures, vision changes , focal weakness or sensory changes. OSH repeat CTH and CT neck were unrevealing. Interval History: Patient reports her headache is 3/10, continues to improve, but continues to endorse neck pain. Objective BP 136/79 Pulse 72 Temp 98.2 ??F (36.8 ??C) (Oral) Resp 17 Ht 1.549 m (5' 1 ) Wt 128.5 kg(283 lb 3.2 oz) SpO2 99% Temp (30hrs) Max:98.4 ??F (36.9 ??C) Body mass index is 53.51 kg/m??. Neurologic Exam: Cortical Function Mental Status Awake, alert, follows commands Orientation Person, place, time, and situation Language Fluency intact, comprehension intact, repetition intact Visual Shafer Intact bilaterally to confrontation Neglect No visual neglect noted, no tactile neglect noted Cranial Nerves II Pupils 3 and bilaterally reactive to light. Fundoscopic exam not performed. VIII Hearing is intact bilaterally to finger rub. III/IV/ Extraocular muscles intact. No diplopia, ptosis, nystagmus or convergence abnormalities noted. IX/X Palate elevated symmetrically without phonation abnormalities noted. V Facial sensation symmetric to light touch and intact bilaterally. Corneal reflex not examined. XIHead turning limited by pain. VII No facial palsy noted. XII Tongue is midline with normal movements and no atrophy noted. Motor Function Movement No abnormalities noted Bulk No abnormalities noted Tone No abnormalities noted Proximal Upper Distal Upper Proximal Lower Distal Lower Right 5-/5 5-/5 5-/5 5-/5 Left 5/5 5/5 5/5 5/5 Muscle Stretch Reflexes BI BR PAT ACH Right 1 1 1 1 Left 1 1 1 1 Sensory Light Touch Symmetric and intact bilaterally Cerebellar FNF Right Mild tremor on R Left Intact Gait Deferred Labs: Results for orders placed or performed during the hospital encounter of 12/23/22 (from the past 24 hour(s)) GLUCOSE - POINT OF CARE Result Value Ref Range Glucose WB/POC 301 (H) 70 - 115 mg/dL Specimen Type Cap Fingerstick GLUCOSE - POINT OF CARE Result Value Ref Range Glucose WB/POC 241 (H) 70 - 115 mg/dL Specimen Type Cap Fingerstick GLUCOSE - POINT OF CARE Result Value Ref Range Glucose WB/POC 272 (H) 70 - 115 mg/dL Specimen Type Cap Fingerstick BASIC METABOLIC PANEL (CALCIUM TOTAL) Result Value Ref Range BUN 12 7 - 26 mg/dL Creatinine 0.62 0.56 - 0.96 mg/dL Sodium 136 136 - 145 mmol/L Potassium 3.9 3.5 - 4.5 mmol/L Chloride 104 98 - 107 mmol/L CO2 26 22 - 29 mmol/L Glucose 181 (H) 70 - 115 mg/dL Calcium 8.9 8.4 - 10.2 mg/dL Anion Gap 10 8 - 18 BUN/Creatinine Ratio 19 7 - 23 Osmolality Calculated 286 270 - 300 mOsm/kg eGFR by CKD-EPI >90 >=90 mL/min/1.73 m2 CBC W/O DIFFERENTIAL Result Value Ref Range WBC 10.8 (H) 3.5 - 10.5 10??3/uL RBC 4.40 3.80 - 5.20 10??6/uL Hemoglobin 12.7 12.0 - 15.6 g/dL Hematocrit 39.6 35.0 - 45.0 % MCV 90.0 80.7 - 98.3 fL MCH 28.9 26.7 - 34.0 pg MCHC 32.1 30.8 - 35.9 g/dL RDW-SD 45.7 36.0 - 50.0 fL RDW-CV 13.9 11.2 - 14.8 % Platelet Count 265 150 - 400 10??3/uL MPV 9.7 9.4 - 12.9 fL nRBC Absolute 0.00 0 10??3/uL nRBC Auto 0.0 0 /100 WBC MAGNESIUM BLOOD Result Value Ref Range Magnesium 1.5 (L) 1.6 - 2.6 mg/dL PHOSPHORUS BLOOD Result Value Ref Range Phosphorus 2.7 (L) 2.9 - 5.1 mg/dL GLUCOSE - POINT OF CARE Result Value Ref Range Glucose WB/POC 171 (H) 70 - 115 mg/dL Specimen Type Cap Fingerstick Assessment and Plan: 47 years old woman presented for persistent CAZARES and neck pain after a fall 6 days ago. Neurologic exam significant for mild Her word finding difficulty, fatigue, nausea/vomiting, photophonophobia symptoms are concerning forpost concussion syndrome. Low suspicion for SAH now given resolution of headache and normal mentation. - Will obtain CTA head and neck - pain control with lidocaine patch and norco Other medical conditions: - HTN: cont home amlodipine - RLS: continue home ropinirole - DM2: BG check ACHS; SSI; holding hypoglycemia orders due to listed allergies of RASH and SOB withglucose containing fluids? Will discuss with pharmacy if needed - chronic back pain: s/p spinal pain stimulation, continue home Fiskdale (lower dose of 5mg-325mg due to formulary) - h/o breast CA - LUL: CPAP - depression: continue home amitriptyline - PE: continue home Xarelto DVT ppx: Xarelto Diet: regular Code status: full code Discussed with General Neurology Attending Physician, Dr. Rodriguez. Teodora Greene M.D. Neurology, PGY-2 12/26/2022 * Carley Garcia RN - 12/26/2022 4:17 AM CDT Problem: Fall Risk Goal: Fall risk and fall related injury risk are minimized (interventions related to the fall risk can be found in the flowsheet documentation) 12/26/2022416 by Carley Garcia RN Outcome: Progressing 12/25/20221906 by Carley Garcia RN Outcome: Progressing Problem: Pain/Discomfort Goal: Patient exhibits reduced pain/discomfort as evidenced by pain scores 12/26/2022416 by Carley Garcia RN Outcome: Progressing 12/25/20221906 by Carley Garcia RN Outcome: Progressing Goal: Patient uses pharmacological and non-pharmacological pain management strategies. 12/26/2022416 by Carley Garcia RN Outcome: Progressing 12/25/20221906 by Carley Garcia RN Outcome: Progressing Goal: Patient verbalizes acceptable level of pain relief and ability to engage in desired activity. 12/26/2022416 by Carley Garcia RN Outcome: Progressing 12/25/20221906 by Carley Garcia RN Outcome: Progressing * Bekah Goel MD - 12/25/2022 6:00 PM CDT Neurology Progress Note Patient: Karly Marques Age: [age] year old Admission Date and Time: 12/23/2022 Subjective Chief Complaint: CAZARES and Neck pain History of Presenting Illness: Karly Marques is a 67 year old female with past medical hx significant for DM2, Breast CA, Chronic back pain on spinal pain stimulator, LUL, depression, peripheral neuropathy, PE on Xarelto admitted for persistent CAZARES and neck pain. Patient reports falling backwards when working in garden, hit her head wo LOC. She got CTH and neckin OSH which reportedly was unremarkable. Since then she is having bilateral temporal CAZARES radiation to occipital area. Reports photophobia and phonophobia along with intermittent word finding difficulty,nausea and fatigue. Denies fever, seizures, vision changes , focal weakness or sensory changes. OSH repeat CTH and CT neck were unrevealing. Interval History: Agreed unlikely she will be able to undergo MRI, for this reason, CT/CTA will be obtained in its place, though not ideal as explained to the patient, it is the safest route not given her implanted device. Objective BP 151/93 Pulse 87 Temp 97.9 ??F (36.6 ??C) (Oral) Resp 17 Ht 1.549 m (5' 1 ) Wt 127.9 kg(282 lb) SpO2 99% No data recorded. Body mass index is 53.28 kg/m??. Neurologic Exam: Cortical Function Mental Status Awake, alert, follows commands Orientation Person, place, time, and situation Language Fluency intact, comprehension intact, repetition intact Visual Shafer Intact bilaterally to confrontation Neglect No visual neglect noted, no tactile neglect noted Cranial Nerves II Pupils 3 and bilaterally reactive to light. Fundoscopic exam not performed. VIII Hearing is intact bilaterally to finger rub. III/IV/ Extraocular muscles intact. No diplopia, ptosis, nystagmus or convergence abnormalities noted. IX/X Palate elevated symmetrically without phonation abnormalities noted. V Facial sensation symmetric to light touch and intact bilaterally. Corneal reflex not examined. XIHead turning and shoulder shrug are intact. VII No facial palsy noted. XII Tongue is midline with normal movements and no atrophy noted. Motor Function Movement No abnormalities noted Bulk No abnormalities noted Tone No abnormalities noted Proximal Upper Distal Upper Proximal Lower Distal Lower Right 5-/5 5-/5 5-/5 5-/5 Left 5/5 5/5 5/5 5/5 Muscle Stretch Reflexes BI BR PAT ACH Right 1 1 1 1 Left 1 1 1 1 Sensory Light Touch Symmetric and intact bilaterally Cerebellar FNF Right Mild tremor on R Left Intact Gait Deferred Labs: No results found for this or any previous visit (from the past 24 hour(s)). Assessment and Plan: 47 years old woman presented for persistent CAZARES and neck pain after a fall 6 days ago. Neurologic exam significant for mild Her word finding difficulty, fatigue, nausea/vomiting, photophonophobia symptoms are concerning forpost concussion syndrome. Low suspicion for SAH now given resolution of headache and normal mentation. - DC MRI order - Order CT/CTA order - pain control with lidocaine patch and norco Other medical conditions: - HTN: cont home amlodipine - RLS: continue home ropinirole - DM2: BG check ACHS; SSI; holding hypoglycemia orders due to listed allergies of RASH and SOB withglucose containing fluids? Will discuss with pharmacy if needed - chronic back pain: s/p spinal pain stimulation, continue home F[place] (lower dose of 5mg-325mg due to formulary) - h/o breast CA - LUL: CPAP - depression: continue home amitriptyline - PE: continue home Xarelto DVT ppx: Xarelto Diet: regular Code status: full code Discussed with General Neurology Attending Physician, Dr. Rodriguez. Kajal Nair M.D. Neurology, PGY-4 Pager: 12/24/2022 Associated attestation - Jerrod Pennington MD - 12/29/2022 2:29 PM CDT Reviewed history, examined the patient, agree with documented resident notes with the exceptions that are indicated below. I have formulated the diagnosis and plan of management. History Examination Plan Please see resident note for details Signed Electronically Jerrod Rodriguez MD [employer] Worker of Neurology 12/25/22 * Caesar Wang RN - 12/25/2022 5:30 PM CDT Problem: Fall Risk Goal: Fall risk and fall related injury risk are minimized (interventions related to the fall risk can be found in the flowsheet documentation) Outcome: Progressing Problem: Pain/Discomfort Goal: Patient exhibits reduced pain/discomfort as evidenced by pain scores Outcome: Progressing Goal: Patient uses pharmacological and non-pharmacological pain management strategies. Outcome: Progressing Goal: Patient verbalizes acceptable level of pain relief and ability to engage in desired activity. Outcome: Progressing * Theresa Aranda RN - 12/25/2022 11:23 AM CDT Care Coordination Initial Assessment Anticipated Discharge Date: 12/28/22 Transportation at Discharge: daughter Anticipated level of care at discharge: Home Anticipated level of care provider: None Prior to admission level of care: Home Prior to admit provider: None Patient Goals: safe discharge Plans: No discharge needs identified at this time. Consult Case Management if discharge planning needs arise. Comments: 67 year old female with past medical hx significant for DM2, Breast CA, Chronic back painon spinal pain stimulator, LUL, depression, peripheral neuropathy, PE on Xarelto admitted for persistent CAZARES and neck pain. Lives with: Daughter Physical Limitations: None Requires Assistance With: Mobility;Housekeeping;Meal Preparation;Shopping Preferred Pharmacy: [phone] - [address] [place] [address] [address] [facility] [address] Advance Directive: Yes, has Advance Directive Type of Directive: Living Will (Declaration) Copy Available: No copy available-Intent Required Intent - Patient Wishes: Full Code, POA Daughter Yunior Marques Copy Requested: Yes, copy requested Would you like assistance on completing and executing or revising an Advance Directive?: No READMISSION RISK SCORE is 10 at 11:23 AM 12/25/2022. Met with patient Family Support (name and phone): Extended Emergency Contact Information Primary Emergency Contact: Jimmie Marques [address]: [address] [place] [address] [place] [address] Relation: Spouse Secondary Emergency Contact: Yunior Velez Mobile Relation: Daughter Patient or patient admitting representative requests care coordination reach out to family or caregiver listed above regarding discharge planning and at time of discharge? Yes Patient/Family provided with list of resources? Unknown Preferred Provider / High Quality Network List given?: Unknown Reason for provider choice: Unknown Sports Photographer Referral: No Will continue to follow. For any questions or needs please contact: Odd Bundle Worker Name/Phone number: Theresa Aranda RN [phone] * Carley Garcia RN - 12/25/2022 6:00 AM CDT Problem: Fall Risk Goal: Fall risk and fall related injury risk are minimized (interventions related to the fall risk can be found in the flowsheet documentation) Outcome: Progressing Problem: Pain/Discomfort Goal: Patient exhibits reduced pain/discomfort as evidenced by pain scores Outcome: Progressing Goal: Patient uses pharmacological and non-pharmacological pain management strategies. Outcome: Progressing Goal: Patient verbalizes acceptable level of pain relief and ability to engage in desired activity. Outcome: Progressing * Kajal Nair MD - 12/24/2022 10:48 AM CDT Neurology Progress Note Patient: Karly Marques Age: [age] year old Admission Date and Time: 12/23/2022 Subjective Chief Complaint: CAZARES and Neck pain History of Presenting Illness: Karly Marques is a 67 year old female with past medical hx significant for DM2, Breast CA, Chronic back pain on spinal pain stimulator, LUL, depression, peripheral neuropathy, PE on Xarelto admitted for persistent CAZARES and neck pain. Patient reports falling backwards when working in garden, hit her head wo LOC. She got CTH and neckin OSH which reportedly was unremarkable. Since then she is having bilateral temporal CAZARES radiation to occipital area. Reports photophobia and phonophobia along with intermittent word finding difficulty,nausea and fatigue. Denies fever, seizures, vision changes , focal weakness or sensory changes. OSH repeat CTH and CT neck were unrevealing. Interval History: Pt reports resolution of CAZARES, but continues to endorse neck pain. Objective BP 109/63 Pulse 77 Temp 98.4 ??F (36.9 ??C) (Oral) Resp 18 Ht 1.549 m (5' 1 ) Wt 126.1 kg(277 lb 14.4 oz) SpO2 96% Temp (30hrs) Max:99.6 ??F (37.6 ??C) Body mass index is 52.51 kg/m??. Neurologic Exam: Cortical Function Mental Status Awake, alert, follows commands Orientation Person, place, time, and situation Language Fluency intact, comprehension intact, repetition intact Visual Shafer Intact bilaterally to confrontation Neglect No visual neglect noted, no tactile neglect noted Cranial Nerves II Pupils 3 and bilaterally reactive to light. Fundoscopic exam not performed. VIII Hearing is intact bilaterally to finger rub. III/IV/ Extraocular muscles intact. No diplopia, ptosis, nystagmus or convergence abnormalities noted. IX/X Palate elevated symmetrically without phonation abnormalities noted. V Facial sensation symmetric to light touch and intact bilaterally. Corneal reflex not examined. XIHead turning and shoulder shrug are intact. VII No facial palsy noted. XII Tongue is midline with normal movements and no atrophy noted. Motor Function Movement No abnormalities noted Bulk No abnormalities noted Tone No abnormalities noted Proximal Upper Distal Upper Proximal Lower Distal Lower Right 5-/5 5-/5 5-/5 5-/5 Left 5/5 5/5 5/5 5/5 Muscle Stretch Reflexes BI BR PAT ACH Right 1 1 1 1 Left 1 1 1 1 Sensory Light Touch Symmetric and intact bilaterally Cerebellar FNF Right Mild tremor on R Left Intact Gait Deferred Labs: Results for orders placed or performed during the hospital encounter of 12/23/22 (from the past 24 hour(s)) COMPREHENSIVE METABOLIC PANEL Result Value Ref Range BUN 14 7 - 26 mg/dL Creatinine 0.68 0.56 - 0.96 mg/dL Sodium 137 136 - 145 mmol/L Potassium 4.1 3.5 - 4.5 mmol/L Chloride 103 98 - 107 mmol/L CO2 26 22 - 29 mmol/L Glucose 163 (H) 70 - 115 mg/dL Calcium 8.8 8.4 - 10.2 mg/dL Protein Total 7.1 6.0 - 8.3 g/dL Albumin 2.9 (L) 3.4 - 5.0 g/dL Bilirubin Total 0.5 0.2 - 1.2 mg/dL Alkaline Phosphatase 69 40 - 150 U/L ALT 17 5 - 55 U/L AST 13 5 - 34 U/L Anion Gap 12 8 - 18 BUN/Creatinine Ratio 21 7 - 23 Osmolality Calculated 288 270 - 300 mOsm/kg Albumin/Globulin Ratio 0.7 (L) 1.1 - 2.3 eGFR by CKD-EPI >90 >=90 mL/min/1.73 m2 CBC W/O DIFFERENTIAL Result Value Ref Range WBC 9.5 3.5 - 10.5 10??3/uL RBC 4.24 3.80 - 5.20 10??6/uL Hemoglobin 12.3 12.0 - 15.6 g/dL Hematocrit 39.5 35.0 - 45.0 % MCV 93.2 80.7 - 98.3 fL MCH 29.0 26.7 - 34.0 pg MCHC 31.1 30.8 - 35.9 g/dL RDW-SD 47.8 36.0 - 50.0 fL RDW-CV 14.1 11.2 - 14.8 % Platelet Count 253 150 - 400 10??3/uL MPV 9.2 (L) 9.4 - 12.9 fL nRBC Absolute 0.00 0 10??3/uL nRBC Auto 0.0 0 /100 WBC MAGNESIUM BLOOD Result Value Ref Range Magnesium 1.6 1.6 - 2.6 mg/dL PHOSPHORUS BLOOD Result Value Ref Range Phosphorus 2.7 (L) 2.9 - 5.1 mg/dL GLUCOSE - POINT OF CARE Result Value Ref Range Glucose WB/POC 151 (H) 70 - 115 mg/dL Specimen Type Cap Fingerstick Assessment and Plan: 47 years old woman presented for persistent CAZARES and neck pain after a fall 6 days ago. Neurologic exam significant for mild Her word finding difficulty, fatigue, nausea/vomiting, photophonophobia symptoms are concerning forpost concussion syndrome. Low suspicion for SAH now given resolution of headache and normal mentation. - Will obtain MRI Brain wwo - pain control with lidocaine patch and norco Other medical conditions: - HTN: cont home amlodipine - RLS: continue home ropinirole - DM2: BG check ACHS; SSI; holding hypoglycemia orders due to listed allergies of RASH and SOB withglucose containing fluids? Will discuss with pharmacy if needed - chronic back pain: s/p spinal pain stimulation, continue home [place] (lower dose of 5mg-325mg due to formulary) - h/o breast CA - LUL: CPAP - depression: continue home amitriptyline - PE: continue home Xarelto DVT ppx: Xarelto Diet: regular Code status: full code Discussed with General Neurology Attending Physician, Dr. Rodriguez. Kajal Nair M.D. Neurology, PGY-4 Pager: 12/24/2022 Associated attestation - Jerrod Pennington MD - 12/24/2022 4:05 PM CDT Reviewed history, examined the patient, agree with documented resident notes with the exceptions that are indicated below. I have formulated the diagnosis and plan of management. History Fall on 12/11/22 - fell back words on to mulch, hit head on brick edging Reports nausea, vomiting x 1. 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 + right leg weakness + blurred vision Denies LOC Examination neck pain and restricted neck movement Right arm 5/5 hand 4+/5 Right leg 3/4 initially and improves to 4-/5 - knee flexion, extension Ankle dorsiflexion, plantar flexion 4+/5 Hyporeflexic Plan Post concussion syndrome headache, blurred vision and cognitive slowing Report of right side intermittent weakness at OSH Currently headache is well controlled on home opiate Recommend MRI Brain and cervical spine W/ Wo contrast to rule out structural etiology and to look for any concussion related changes Please see resident note for details Signed Electronically Jerrod Rodriguez MD [employer] Worker of Neurology, * Sara Ahumada RN - 12/24/2022 4:36 AM CDT Problem: Fall Risk Goal: Fall risk and fall related injury risk are minimized (interventions related to the fall risk can be found in the flowsheet documentation) Outcome: Progressing Problem: Pain/Discomfort Goal: Patient exhibits reduced pain/discomfort as evidenced by pain scores Outcome: Progressing Goal: Patient uses pharmacological and non-pharmacological pain management strategies. Outcome: Progressing Goal: Patient verbalizes acceptable level of pain relief and ability to engage in desired activity. Outcome: Progressing documented in this encounter H&P Notes * Jayro Valverde MD - 12/23/2022 11:37 PM CDT Neurology History & Physical Note Patient: Karly Marques Age: [age] year old Admission Date and Time: 12/23/2022 Subjective Chief Complaint: CAZARES and Neck pain History of Presenting Illness: Karly Marques is a 67 year old female with past medical hx significant for DM2, Breast CA, Chronic back pain on spinal pain stimulator, LUL, depression, peripheral neuropathy, PE on Xarelto admitted for persistent CAZARES and neck pain. Patient reports falling backwards when working in garden, hit her head wo LOC. She got CTH and neckin OSH which reportedly was unremarkable. Since then she is having bilateral temporal CAZARES radiation to occipital area. Reports photophobia and phonophobia along with intermittent word finding difficulty,nausea and fatigue. Denies fever, seizures, vision changes , focal weakness or sensory changes. OSH repeat CTH and CT neck were unrevealing. Past Medical History No history on file. Past Medical History: Diagnosis Date ??? Breast [...] BATTERY IN THE LOWER LUMBAR REGION Allergies Allergies Allergen Reactions ??? Latex Rash [...] Reslizumab Unknown ??? Skin Adhesives Skin Reactions Family History Problem Relation Name Age of [...] Types: Cigarettes Quit date: 12/05/1977 Years since quittin.0 ??? Smokeless tobacco: Never Vaping Use ??? [...] No Stress: No Stress Concern Present (12/23/2022) [facility] Occupational [facility] - Occupational Stress Questionnaire ??? Feeling of Stress : Not at all Housing Stability: Low Risk (12/23/2022) Housing Stability Vital Sign ??? Unable to Pay for Housing in the Last Year: No ??? Number of Places Lived in the Last Year: 1 ??? Unstable Housing in the Last Year: No Objective BP 98/55 Pulse 74 Temp 97.8 ??F (36.6 ??C) Resp 16 Ht 1.549 m (5' 1 ) Wt 126.1 kg (277 lb14.4 oz) SpO2 100% Temp (30hrs) Max:99.6 ??F (37.6 ??C) Body mass index is 52.51 kg/m??. Neurologic Exam: Cortical Function Mental Status Awake, alert, follows commands Orientation Person, place, time, and situation Language Fluency intact, comprehension intact, repetition intact Visual Shafer Intact bilaterally to confrontation Neglect No visual neglect noted, no tactile neglect noted Cranial Nerves II Pupils 3 and bilaterally reactive to light. Fundoscopic exam not performed. VIII Hearing is intact bilaterally to finger rub. III/IV/ Extraocular muscles intact. No diplopia, ptosis, nystagmus or convergence abnormalities noted. IX/X Palate elevated symmetrically without phonation abnormalities noted. V Facial sensation symmetric to light touch and intact bilaterally. Corneal reflex not examined. XIHead turning and shoulder shrug are intact. VII No facial palsy noted. XII Tongue is midline with normal movements and no atrophy noted. Motor Function Movement No abnormalities noted Bulk No abnormalities noted Tone No abnormalities noted Proximal Upper Distal Upper Proximal Lower Distal Lower Right 5-/5 5-/5 5-/5 5-/5 Left 5/5 5/5 5/5 5/5 Muscle Stretch Reflexes BI BR PAT ACH Right 1 1 1 1 Left 1 1 1 1 Sensory Light Touch Symmetric and intact bilaterally Cerebellar FNF Right Mild tremor on R Left Intact Gait Deferred Labs: Results for orders placed or performed during the hospital encounter of 12/23/22 (from the past 24 hour(s)) COMPREHENSIVE METABOLIC PANEL Result Value Ref Range BUN 14 7 - 26 mg/dL Creatinine 0.68 0.56 - 0.96 mg/dL Sodium 137 136 - 145 mmol/L Potassium 4.1 3.5 - 4.5 mmol/L Chloride 103 98 - 107 mmol/L CO2 26 22 - 29 mmol/L Glucose 163 (H) 70 - 115 mg/dL Calcium 8.8 8.4 - 10.2 mg/dL Protein Total 7.1 6.0 - 8.3 g/dL Albumin 2.9 (L) 3.4 - 5.0 g/dL Bilirubin Total 0.5 0.2 - 1.2 mg/dL Alkaline Phosphatase 69 40 - 150 U/L ALT 17 5 - 55 U/L AST 13 5 - 34 U/L Anion Gap 12 8 - 18 BUN/Creatinine Ratio 21 7 - 23 Osmolality Calculated 288 270 - 300 mOsm/kg Albumin/Globulin Ratio 0.7 (L) 1.1 - 2.3 eGFR by CKD-EPI >90 >=90 mL/min/1.73 m2 CBC W/O DIFFERENTIAL Result Value Ref Range WBC 9.5 3.5 - 10.5 10??3/uL RBC 4.24 3.80 - 5.20 10??6/uL Hemoglobin 12.3 12.0 - 15.6 g/dL Hematocrit 39.5 35.0 - 45.0 % MCV 93.2 80.7 - 98.3 fL MCH 29.0 26.7 - 34.0 pg MCHC 31.1 30.8 - 35.9 g/dL RDW-SD 47.8 36.0 - 50.0 fL RDW-CV 14.1 11.2 - 14.8 % Platelet Count 253 150 - 400 10??3/uL MPV 9.2 (L) 9.4 - 12.9 fL nRBC Absolute 0.00 0 10??3/uL nRBC Auto 0.0 0 /100 WBC MAGNESIUM BLOOD Result Value Ref Range Magnesium 1.6 1.6 - 2.6 mg/dL PHOSPHORUS BLOOD Result Value Ref Range Phosphorus 2.7 (L) 2.9 - 5.1 mg/dL Assessment and Plan: 47 years old woman presented for persistent CAZARES and neck pain after a fall 6 days ago. Neurologic exam significant for mild Her word finding difficulty, fatigue, nausea/vomiting, photophonophobia symptoms are concerning forpost concussion syndrome. Small SAH less likely but possible. - Will obtain MRI Brain wwo - Will consider LP to exclude SAH Will be discussed with General Neurology Attending Physician, Dr. Rodriguez. Jayro Valverde MD Neurology Resident. Associated attestation - Jerrod Pennnigton MD - 12/24/2022 4:03 PM CDT Reviewed history, examined the patient, agree with documented resident notes with the exceptions that are indicated below. I have formulated the diagnosis and plan of management. History Fall on 12/11/22 - fell back words on to mulch, hit head on brick edging Reports nausea, vomiting x 1. 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 + right leg weakness + blurred vision Denies LOC Examination neck pain and restricted neck movement Right arm 5/5 hand 4+/5 Right leg 3/4 initially and improves to 4-/5 - knee flexion, extension Ankle dorsiflexion, plantar flexion 4+/5 Hyporeflexic Plan Post concussion syndrome headache, blurred vision and cognitive slowing Report of right side intermittent weakness at OSH Currently headache is well controlled on home opiate Recommend MRI Brain and cervical spine W/ Wo contrast to rule out structural etiology and to look for any concussion related changes Please see resident note for details Signed Electronically Jerrod Rodriguez MD [employer] Worker of Neurology, documented in this encounter Miscellaneous Notes * Coding Query - Jerrod Pennington MD - 12/26/2022 6:00 PM CDT DOCUMENTATION CLARIFICATION REQUEST TO: Dr. Herndon FROM: Opal Malhotra RN, CDS EMAIL: [email or web address] Patient Name: Karly Marques Please review the clinical information below and clarify the diagnosis related to body mass index (BMI) of 52.91 as documented on 12/23/22 in H&P: Choices may include but are not limited to: ??? Morbid obesity ??? Obesity ??? Other, please specify ??? Unable to determine The medical record reflects the following: o Risk Factors: Hx obstructive sleep apnea, type II DM, GERD, o Clinical Findings: Noted per MD in the H&P BMI of 52.91, o Treatment: Weight patient, monitor I/O, regular diet, labs, vitals, PROVIDER RESPONSE (Use F2 to respond) Morbid Obesity Please provide your clinical opinion and findings to support the diagnosis in the progress notes & carry it through into your discharge summary. THIS DOCUMENT IS MAINTAINED A PERMANENT PART OF THE MEDICAL RECORD. documented in this encounter Plan of Treatment Scheduled Orders Name Type Priority Associated Diagnoses Order Schedule REASSESSMENT PARAMETERS Respiratory Care Routine ONCE for 1 Occurrences starting 12/24/2022 until 12/24/2022 documented as of this encounter Procedures Procedure Name Priority Date/Time Associated Diagnosis Comments GLUCOSE - POINT OF CARE Routine 12/26/2022 5:36 PM CDT GLUCOSE - POINT OF CARE Routine 12/26/2022 11:[address] ANGIO BRAIN AND NECK Routine 12/26/2022 9:42 AM CDT Acute intractable headache, unspecified headache type Right hand weakness GLUCOSE - POINT OF CARE Routine 12/26/2022 8:13 AM CDT CBC W/O DIFFERENTIAL AM Draw 12/26/2022 1:32 AM CDT BASIC METABOLIC PANEL (CALCIUM TOTAL) Routine 12/26/2022 1:32 AM CDT PHOSPHORUS BLOOD Routine 12/26/2022 1:32 AM CDT MAGNESIUM BLOOD Routine 12/26/2022 1:32 AM CDT GLUCOSE - POINT OF CARE Routine 12/25/2022 9:38 PM CDT GLUCOSE - POINT OF CARE Routine 12/25/2022 4:11 PM CDT GLUCOSE - POINT OF CARE Routine 12/25/2022 12:21 PM CDT GLUCOSE - POINT OF CARE Routine 12/25/2022 7:26 AM CDT HEMOGLOBIN A1C Routine 12/25/2022 3:56 AM CDT CBC W/O DIFFERENTIAL AM Draw 12/25/2022 3:56 AM CDT BASIC METABOLIC PANEL (CALCIUM TOTAL) Routine 12/25/2022 3:56 AM CDT PHOSPHORUS BLOOD Routine 12/25/2022 3:56 AM CDT MAGNESIUM BLOOD Routine 12/25/2022 3:56 AM CDT GLUCOSE - POINT OF CARE Routine 12/24/2022 9:05 PM CDT GLUCOSE - POINT OF CARE Routine 12/24/2022 5:39 PM CDT GLUCOSE - POINT OF CARE Routine 12/24/2022 11:53 AM CDT GLUCOSE - POINT OF CARE Routine 12/24/2022 8:42 AM CDT CBC W/O DIFFERENTIAL Routine 12/24/2022 1:35 AM CDT COMPREHENSIVE METABOLIC PANEL Routine 12/24/2022 1:35 AM CDT PHOSPHORUS BLOOD Routine 12/24/2022 1:35 AM CDT MAGNESIUM BLOOD Routine 12/24/2022 1:35 AM CDT documented in this encounter Results * (ABNORMAL) GLUCOSE - POINT OF CARE (12/26/2022 5:36 PM CDT) [facility] Glucose WB/POC 322(H) 70 - 115 mg/dL 12/26/2022 5:40 PM CDT [facility] Specimen Type Cap Fingerstick 2022 5:40 PM CDT [facility] Blood BLOOD SPECIMEN / Unknown 12/26/2022 5:36 PM CDT 12/26/2022 5:40 PM CDT Jerrod Rodriguez MD LAB - POINT OF CARE ORDERABLES Performing Organization Address City/[facility]/ZIP Co de Phone Number [address] [address], [facility] [phone] * (ABNORMAL) GLUCOSE - POINT OF CARE (12/26/2022 11:38 AM CDT) Glucose WB/POC 284(H) 70 - 115 mg/dL 12/26/2022 11:48 AM CDT [facility] Specimen Type Cap Fingerstick 2022 11:48 AM CDT [facility] Blood BLOOD SPECIMEN / Unknown 12/26/2022 11:38 AM CDT 12/26/2022 11:48 AM CDT Jerrod Rodriguez MD LAB - POINT OF CARE ORDERABLES Performing Organization Address [facility]/ZIP Co de Phone Number [address] [address], [facility] [phone] * CT ANGIO BRAIN AND NECK (12/26/2022 [...] DATE/TIME OF EXAM: ??12/26/2022 9:43 AM, LOCATION ??[facility] INDICATION: R51.9: Acute intractable headache, unspecified headache [...] NECK, DATE/TIME OF EXAM: 12/26/2022 9:43AM, LOCATION [facility] INDICATION: R51.9: Acute intractable headache, unspecified headache [...] Jerrod Rodriguez MD CT ORDERABLES * (ABNORMAL) GLUCOSE - POINT OF CARE (12/26/2022 8:13 AM CDT) Glucose WB/POC 171(H) 70 - 115 mg/dL 12/26/2022 8:28 AM CDT [facility] Specimen Type Cap Fingerstick 2022 8:28 AM CDT [facility] Blood BLOOD SPECIMEN / Unknown 12/26/2022 8:13 AM CDT 12/26/2022 8:28 AM CDT Jerrod Rodriguez MD LAB - POINT OF CARE ORDERABLES [address] [address], [facility] [phone] * (ABNORMAL) PHOSPHORUS BLOOD (12/26/2022 1:32 AM CDT) Phosphorus 2.7(L) 2.9 - 5.1 mg/dL 12/26/2022 3:11 AM CDT [facility] Blood BLOOD SPECIMEN / Unknown Lab Venipuncture / Unknown 12/26/2022 1:32 AM CDT 12/26/2022 2:44 AM CDT Jerrod Rodriguez MD LAB - CHEMISTR Y ORDERABLES [address] [address], [place] [phone] * (ABNORMAL) MAGNESIUM BLOOD (12/26/2022 1:32 AM CDT) Magnesium 1.5(L) 1.6 - 2.6 mg/dL 12/26/2022 3:11 AM CDT [facility] Blood BLOOD SPECIMEN / Unknown Lab Venipuncture / Unknown 12/26/2022 1:32 AM CDT 12/26/2022 2:44 AM CDT Jerrod Rodriguez MD LAB - CHEMISTR Y ORDERABLES [facility] [address] [place] [address], [facility] [phone] * (ABNORMAL) CBC W/O DIFFERENTIAL (12/26/2022 1:32 AM CDT) WBC 10.8(H) 3.5 - 10.5 10? 3 /uL 12/26/2022 2:55 AM T [facility] RBC 4.40 3.80 - 5.20 10? 6 /uL 12/26/2022 2:55 AM [facility] Hemoglobin 12.7 12.0 - 15.6 g/dL 12/26/2022 2:55 AM [facility] Hematocrit 39.6 35.0 - 45.0 % 12/26/2022 2:55 AM [facility] MCV 90.0 80.7 - 98.3 fL 12/26/2022 2:55 AM [facility] MCH 28.9 26.7 - 34.0 pg 12/26/2022 2:55 AM [facility] MCHC 32.1 30.8 - 35.9 g/dL 12/26/2022 2:55 AM [facility] RDW-SD 45.7 36.0 - 50.0 fL 12/26/2022 2:55 AM [facility] RDW-CV 13.9 11.2 - 14.8 % 12/26/2022 2:55 AM [facility] Platelet Count 265 150 - 400 10? 3 /uL 12/26/2022 2:55 AM [facility] MPV 9.7 9.4 - 12.9 fL 12/26/2022 2:55 AM [facility] nRBC Absolute 0.00 0 10? 3 /uL 12/26/2022 2:55 AM [facility] nRBC Auto 0.0 0 /100 WBC 12/26/2022 2:55 AM [facility] Blood BLOOD SPECIMEN / Unknown Lab Venipuncture / Unknown 12/26/2022 1:32 AM CDT 12/26/2022 2:44 AM CDT Jerrod Rodriguez MD LAB - HEMATOLO GY ORDERABLES [facility] [address] [place] [address], [facility] [phone] * (ABNORMAL) BASIC METABOLIC PANEL (CALCIUM TOTAL) (12/26/2022 1:32 AM CDT) BUN 12 7 - 26 mg/dL 12/26/2022 3:11 AM [facility] Creatinine 0.62 0.56 - 0.96 mg/dL 12/26/2022 3:11 AM [facility] Sodium 136 136 - 145 mmol/L 12/26/2022 3:11 AM [facility] Potassium 3.9 3.5 - 4.5 mmol/L 12/26/2022 3:11 AM [facility] Chloride 104 98 - 107 mmol/L 12/26/2022 3:11 AM [facility] CO2 26 22 - 29 mmol/L 12/26/2022 3:11 AM [facility] Glucose 181(H) 70 - 115 mg/dL 12/26/2022 3:11 AM [facility] Calcium 8.9 8.4 - 10.2 mg/dL 12/26/2022 3:11 AM [facility] Anion Gap 10 8 - 18 12/26/2022 3:11 AM [facility] BUN/Creatinine Ratio 19 7 - 23 12/26/2022 3:11 AM [facility] Osmolality Calculated 286 270 - 300 mOsm/kg 12/26/2022 3:11 AM [facility] eGFR by CKD-EPI >90 >=90 mL/min/1.7 3 m2 12/26/2022 3:11 AM [facility] Blood BLOOD SPECIMEN / Unknown Lab Venipuncture / Unknown 12/26/2022 1:32 AM CDT 12/26/2022 2:44 AM CDT Jerrod Rodriguez MD LAB - CHEMISTR Y ORDERABLES [facility] [address] [place] [phone], [place] [phone] * (ABNORMAL) GLUCOSE - POINT OF CARE (12/25/2022 9:38 PM CDT) Glucose WB/POC 272(H) 70 - 115 mg/dL 12/25/2022 9:43 PM CDT [facility] Specimen Type Cap Fingerstick 2022 9:43 PM CDT [facility] Blood BLOOD SPECIMEN / Unknown 12/25/2022 9:38 PM CDT 12/25/2022 9:43 PM CDT Jerrod Rodriguez MD LAB - POINT OF CARE ORDERABLES [facility] [address] [place] [address], [place] [phone] * (ABNORMAL) GLUCOSE - POINT OF CARE (12/25/2022 4:11 PM CDT) Glucose WB/POC 241(H) 70 - 115 mg/dL 12/25/2022 4:12 PM CDT [facility] Specimen Type Cap Fingerstick 2022 4:12 PM CDT [facility] Blood BLOOD SPECIMEN / Unknown 12/25/2022 4:11 PM CDT 12/25/2022 4:12 PM CDT Jerrod Rodriguez MD LAB - POINT OF CARE ORDERABLES [facility] [address] [place] [phone], [place] [phone] * (ABNORMAL) GLUCOSE - POINT OF CARE (12/25/2022 12:21 PM CDT) Glucose WB/POC 301(H) 70 - 115 mg/dL 12/25/2022 12:21 PM CDT [facility] Specimen Type Cap Fingerstick 2022 12:21 PM CDT [facility] Blood BLOOD SPECIMEN / Unknown 12/25/2022 12:21 PM CDT 12/25/2022 12:21 PM CDT Jerrod Rodriguez MD LAB - POINT OF CARE ORDERABLES [address] [address], [place] [phone] * (ABNORMAL) GLUCOSE - POINT OF CARE (12/25/2022 7:26 AM CDT) Glucose WB/POC 175(H) 70 - 115 mg/dL 12/25/2022 7:27 AM CDT [facility] Specimen Type Cap Fingerstick 2022 7:27 AM CDT [facility] Blood BLOOD SPECIMEN / Unknown 12/25/2022 7:26 AM CDT 12/25/2022 7:26 AM CDT Jerrod Rodriguez MD LAB - POINT OF CARE ORDERABLES Performing Organization Address [facility]/ZIP Co de Phone Number [address] [address], [place] [phone] * (ABNORMAL) PHOSPHORUS BLOOD (12/25/2022 3:56 AM CDT) Phosphorus 2.2(L) 2.9 - 5.1 mg/dL 12/25/2022 4:59 AM CDT [facility] Blood BLOOD SPECIMEN / Unknown Lab Venipuncture / Unknown 12/25/2022 3:56 AM CDT 12/25/2022 4:30 AM CDT Jerrod Rodriguez MD LAB - CHEMISTR Y ORDERABLES [address] [address], [place] [phone] * MAGNESIUM BLOOD (12/25/2022 3:56 AM CDT) Magnesium 1.7 1.6 - 2.6 mg/dL 12/25/2022 4:59 AM [facility] Blood BLOOD SPECIMEN / Unknown Lab Venipuncture / Unknown 12/25/2022 3:56 AM CDT 12/25/2022 4:30 AM CDT Jerrod Rodriguez MD LAB - CHEMISTR Y ORDERABLES Performing Organization Address City/State/[facility] Co de Phone Number [facility] [address], [place] [address], [facility] [phone] * (ABNORMAL) CBC W/O DIFFERENTIAL (12/25/2022 3:56 AM CDT) WBC 10.1 3.5 - 10.5 10? 3 /uL 12/25/2022 4:43 AM [facility] RBC 4.30 3.80 - 5.20 10? 6 /uL 12/25/2022 4:43 AM [facility] Hemoglobin 12.2 12.0 - 15.6 g/dL 12/25/2022 4:43 AM [facility] Hematocrit 39.9 35.0 - 45.0 % 12/25/2022 4:43 AM [facility] MCV 92.8 80.7 - 98.3 fL 12/25/2022 4:43 AM [facility] MCH 28.4 26.7 - 34.0 pg 12/25/2022 4:43 AM [facility] MCHC 30.6(L) 30.8 - 35.9 g/dL 12/25/2022 4:43 AM [facility] RDW-SD 47.8 36.0 - 50.0 fL 12/25/2022 4:43 AM [facility] RDW-CV 14.0 11.2 - 14.8 % 12/25/2022 4:43 AM [facility] Platelet Count 235 150 - 400 10? 3 /uL 12/25/2022 4:43 AM [facility] MPV 9.5 9.4 - 12.9 fL 12/25/2022 4:43 AM [facility] nRBC Absolute 0.00 0 10? 3 /uL 12/25/2022 4:43 AM [facility] nRBC Auto 0.0 0 /100 WBC 12/25/2022 4:43 AM [facility] Blood BLOOD SPECIMEN / Unknown Lab Venipuncture / Unknown 12/25/2022 3:56 AM CDT 12/25/2022 4:31 AM CDT Jerrod Rodriguez MD LAB - HEMATOLO GY ORDERABLES [facility] [address] [place] [address], [facility] [phone] * (ABNORMAL) BASIC METABOLIC PANEL (CALCIUM TOTAL) (12/25/2022 3:56 AM CDT) BUN 13 7 - 26 mg/dL 12/25/2022 4:59 AM [facility] Creatinine 0.64 0.56 - 0.96 mg/dL 12/25/2022 4:59 AM [facility] Sodium 138 136 - 145 mmol/L 12/25/2022 4:59 AM [facility] Potassium 4.2 3.5 - 4.5 mmol/L 12/25/2022 4:59 AM [facility] Chloride 104 98 - 107 mmol/L 12/25/2022 4:59 AM [facility] CO2 27 22 - 29 mmol/L 12/25/2022 4:59 AM [facility] Glucose 185(H) 70 - 115 mg/dL 12/25/2022 4:59 AM [facility] Calcium 8.7 8.4 - 10.2 mg/dL 12/25/2022 4:59 AM [facility] Anion Gap 11 8 - 18 12/25/2022 4:59 AM [facility] BUN/Creatinine Ratio 20 7 - 23 12/25/2022 4:59 AM [facility] Osmolality Calculated 291 270 - 300 mOsm/kg 12/25/2022 4:59 AM [facility] eGFR by CKD-EPI >90 >=90 mL/min/1.7 3 m2 12/25/2022 4:59 AM CDT [facility] Blood BLOOD SPECIMEN / Unknown Lab Venipuncture / Unknown 12/25/2022 3:56 AM CDT 12/25/2022 4:30 AM CDT Jerrod Rodriguez MD LAB - CHEMISTR Y ORDERABLES Performing Organization Address City/[facility]/ZIP Co de Phone Number [address] [address], [facility] [phone] * (ABNORMAL) HEMOGLOBIN A1C (12/25/2022 3:56 AM CDT) Hemoglobin A1c 8.6(H) <=5.6 % 12/25/2022 2:47 PM CDT [facility] Estimated Average Glucose 200 mg/dL 12/25/2022 2:47 PM CDT [facility] Comment: HbA1c Interpretation: Normal : < 5.7% Pre-diabetes: 5.7-6.4% Diabetes: Equal to or greater than 6.5% Test results diagnostic of diabetes should be repeated for confirmation. Treatment target values recommended by ADA and other clinical organizations should be used to evaluate metabolic control in patients. Reference: [place] [employer], Standards of Care in Diabetes -2020 In patients 70 years and older consider HbA1c target range of 7.0-7.5% (Reference: Travis Storey et al. MARCIALDA. 2012) The Sebia assay for the measurement of HbA1c is a National Glycohemoglobin Standardization Program (NGSP) certified method. Blood BLOOD SPECIMEN / Unknown Lab Venipuncture / Unknown 12/25/2022 3:56 AM CDT 12/25/2022 4:30 AM CDT Jerrod Rodrigeuz MD LAB - CHEMISTR Y ORDERABLES Performing Organization Address City/[facility]/ZIP Co de Phone Number [address] [address], [facility] [phone] * (ABNORMAL) GLUCOSE - POINT OF CARE (12/24/2022 9:05 PM CDT) Glucose WB/POC 231(H) 70 - 115 mg/dL 12/24/2022 9:10 PM CDT [facility] Specimen Type Cap Fingerstick 2022 9:10 PM CDT [facility] Blood BLOOD SPECIMEN / Unknown 12/24/2022 9:05 PM CDT 12/24/2022 9:10 PM CDT Jerrod Rodriguez MD LAB - POINT OF CARE ORDERABLES [address] [address], [place] [phone] * (ABNORMAL) GLUCOSE - POINT OF CARE (12/24/2022 5:39 PM CDT) Glucose WB/POC 171(H) 70 - 115 mg/dL 12/24/2022 5:40 PM CDT [facility] Specimen Type Cap Fingerstick 2022 5:40 PM CDT [facility] Blood BLOOD SPECIMEN / Unknown 12/24/2022 5:39 PM CDT 12/24/2022 5:40 PM CDT Jerrod Rodriguez MD LAB - POINT OF CARE ORDERABLES Performing Organization Address City/[facility]/ZIP Co de Phone Number [address] [address], [place] [phone] * (ABNORMAL) GLUCOSE - POINT OF CARE (12/24/2022 11:53 AM CDT) Glucose WB/POC 224(H) 70 - 115 mg/dL 12/24/2022 11:55 AM CDT [facility] Specimen Type Cap Fingerstick 2022 11:55 AM CDT [facility] Blood BLOOD SPECIMEN / Unknown 12/24/2022 11:53 AM CDT 12/24/2022 11:55 AM CDT Jerrod Rodriguez MD LAB - POINT OF CARE ORDERABLES [address] [place] [address], [facility] [phone] * (ABNORMAL) GLUCOSE - POINT OF CARE (12/24/2022 8:42 AM CDT) Glucose WB/POC 151(H) 70 - 115 mg/dL 12/24/2022 8:53 AM CDT [facility] Specimen Type Cap Fingerstick 2022 8:53 AM CDT [facility] Blood BLOOD SPECIMEN / Unknown 12/24/2022 8:42 AM CDT 12/24/2022 8:53 AM CDT Jerrod Rodriguez MD LAB - POINT OF CARE ORDERABLES [address] [address], [facility] [phone] * (ABNORMAL) PHOSPHORUS BLOOD (12/24/2022 1:35 AM CDT) Phosphorus 2.7(L) 2.9 - 5.1 mg/dL 12/24/2022 2:23 AM CDT [facility] Blood BLOOD SPECIMEN / Unknown Lab Venipuncture / Unknown 12/24/2022 1:35 AM CDT 12/24/2022 1:52 AM CDT Jerrod Rodriguez MD LAB - CHEMISTR Y ORDERABLES [address] [address], [facility] [phone] * MAGNESIUM BLOOD (12/24/2022 1:35 AM CDT) Magnesium 1.6 1.6 - 2.6 mg/dL 12/24/2022 2:23 AM CDT [facility] Blood BLOOD SPECIMEN / Unknown Lab Venipuncture / Unknown 12/24/2022 1:35 AM CDT 12/24/2022 1:52 AM CDT Jerrod Rodriguez MD LAB - CHEMISTR Y ORDERABLES [facility] [address] [place] [address], [facility] [phone] * (ABNORMAL) CBC W/O DIFFERENTIAL (12/24/2022 1:35 AM CDT) WBC 9.5 3.5 - 10.5 10? 3 /uL 12/24/2022 2:03 AM [facility] RBC 4.24 3.80 - 5.20 10? 6 /uL 12/24/2022 2:03 AM [facility] Hemoglobin 12.3 12.0 - 15.6 g/dL 12/24/2022 2:03 AM [facility] Hematocrit 39.5 35.0 - 45.0 % 12/24/2022 2:03 AM [facility] MCV 93.2 80.7 - 98.3 fL 12/24/2022 2:03 AM [facility] MCH 29.0 26.7 - 34.0 pg 12/24/2022 2:03 AM [facility] MCHC 31.1 30.8 - 35.9 g/dL 12/24/2022 2:03 AM [facility] RDW-SD 47.8 36.0 - 50.0 fL 12/24/2022 2:03 AM [facility] RDW-CV 14.1 11.2 - 14.8 % 12/24/2022 2:03 AM [facility] Platelet Count 253 150 - 400 10? 3 /uL 12/24/2022 2:03 AM [facility] MPV 9.2(L) 9.4 - 12.9 fL 12/24/2022 2:03 AM [facility] nRBC Absolute 0.00 0 10? 3 /uL 12/24/2022 2:03 AM [facility] nRBC Auto 0.0 0 /100 WBC 12/24/2022 2:03 AM [facility] Blood BLOOD SPECIMEN / Unknown Lab Venipuncture / Unknown 12/24/2022 1:35 AM CDT 12/24/2022 1:52 AM CDT Jerrod Rodriguez MD LAB - HEMATOLO GY ORDERABLES [facility] [address] [place] [address], [facility] [phone] * (ABNORMAL) COMPREHENSIVE METABOLIC PANEL (12/24/2022 1:35 AM CDT) BUN 14 7 - 26 mg/dL 12/24/2022 2:23 AM [facility] Creatinine 0.68 0.56 - 0.96 mg/dL 12/24/2022 2:23 AM [facility] Sodium 137 136 - 145 mmol/L 12/24/2022 2:23 AM [facility] Potassium 4.1 3.5 - 4.5 mmol/L 12/24/2022 2:23 AM [facility] Chloride 103 98 - 107 mmol/L 12/24/2022 2:23 AM [facility] CO2 26 22 - 29 mmol/L 12/24/2022 2:23 AM [facility] Glucose 163(H) 70 - 115 mg/dL 12/24/2022 2:23 AM [facility] Calcium 8.8 8.4 - 10.2 mg/dL 12/24/2022 2:23 AM [facility] Protein Total 7.1 6.0 - 8.3 g/dL 12/24/2022 2:23 AM [facility] Albumin 2.9(L) 3.4 - 5.0 g/dL 12/24/2022 2:23 AM [facility] Bilirubin Total 0.5 0.2 - 1.2 mg/dL 12/24/2022 2:23 AM [facility] Alkaline Phosphatase 69 40 - 150 U/L 12/24/2022 2:23 AM [facility] ALT 17 5 - 55 U/L 12/24/2022 2:23 AM [facility] AST 13 5 - 34 U/L 12/24/2022 2:23 AM [facility] Anion Gap 12 8 - 18 12/24/2022 2:23 AM CDT [facility] BUN/Creatinine Ratio 21 7 - 23 12/24/2022 2:23 AM CDT [facility] Osmolality Calculated 288 270 - 300 mOsm/kg 12/24/2022 2:23 AM T [facility] Albumin/Globulin Ratio 0.7(L) 1.1 - 2.3 12/24/2022 2:23 AM T [facility] eGFR by CKD-EPI >90 >=90 mL/min/1.7 3 m2 12/24/2022 2:23 AM T [facility] Blood BLOOD SPECIMEN / Unknown Lab Venipuncture / Unknown 12/24/2022 1:35 AM CDT 12/24/2022 1:52 AM CDT Jerrod Rodriguez MD LAB - CHEMISTR Y ORDERABLES Performing Organization Address City/State/[facility] Co de Phone Number [facility] [address] [place] [address], [facility] [phone] documented in this encounter Visit Diagnoses Diagnosis Acute intractable headache, unspecified headache type- Primary Acute intractable headache, unspecified headache type Preoperative examination Preoperative examination, unspecified S/P insertion of spinal cord stimulator Intractable chronic post-traumatic headache Chronic post-traumatic headache Right hand weakness Muscle weakness (generalized) Intractable chronic post-traumatic headache Chronic post-traumatic headache Right hand weakness Muscle weakness (generalized) documented in this encounter Administered Medications Inactive Administered Medications - up to 3 most recent administrations Medication Order MAR Action Action Date Dose Rate Site amitriptyline (Elavil) tablet 50 mg 50 mg, Oral, AT BEDTIME, First dose on 12/24/22 at 2100, Until Discontinued $ Given 12/25/2022 9:39 PM CDT 50 mg $ Given 12/24/2022 9:16 PM CDT 50 mg amLODIPine (Norvasc) tablet 5 mg 5 mg, Oral, DAILY, First dose on 12/24/22 at 0900, Until Discontinued $ Given 12/26/2022 8:36 AM CDT 5 mg $ Given 12/25/2022 7:50 AM CDT 5 mg $ Given 12/24/2022 8:45 AM CDT 5 mg HYDROcodone-acetaminophen ([place]) 5-325 MG tablet 1 tablet 1 tablet, Oral, ONCE, 1 dose, On 12/24/22 at 0230, Patient preference for lesser PRN pain meds may be honored when the patient requests a less strong medication, a lower dose, or a less intrusive route of administration when the lesser drug, dose and route have been ordered for the patient. This patient request must be documented in the MAR. $ Given 12/24/2022 2:37 AM CDT 1 tab let HYDROcodone-acetaminophen ([place]) 5-325 MG tablet 1 tablet 1 tablet, Oral, EVERY 4 HOURS PRN, Mild Pain, Moderate Pain, Severe Pain, Starting on 12/24/22 at 1054, Until 12/26/22 at 1901, Patient preference for lesser PRN pain meds may be honored when the patient requests a less strong medication, a lower dose, or a less intrusive route of administration when the lesser drug, dose and route have been ordered for the patient. This patient request must be documented in the MAR. $ Given 12/26/2022 2:28 PM CDT 1 tab let $ Given 12/26/2022 5:47 AM CDT 1 tablet $ Given 12/25/2022 9:42 PM CDT 1 tablet hydrOXYzine HCl (Atarax) tablet 10 mg 10 mg, Oral, 3 TIMES DAILY PRN, Itching, Starting on 12/24/22 at 1718, Until 12/26/22 at 1901 $ Given 12/25/2022 9:39 PM CDT 10 mg $ Given 12/25/2022 11:06 AM CDT 10 mg $ Given 12/24/2022 11:23 PM CDT 10 mg insulin aspart (NovoLOG) pen 0-4 Units 0-4 Units, Subcutaneous, 4 TIMES DAILY - BEFORE MEALS AND AT BEDTIME, First dose on 12/24/22 at 1130, Until Discontinued, Bedside glucose should be done within 30-60 minutes of correction insulin administration. BG (mg/dL) Corrective Action LESS than 70 follow Hypoglycemic guidelines, 70-220 NO bedtime correction insulin 221-260 GIVE 1 unit of insulin 261-300 GIVE 2 units of insulin 301-350 GIVE 3 units of insulin Greater than 350 GIVE 4 units of insulin and notify physician $ Given 12/26/2022 5:40 PM CDT 3 Units Right Arm $ Given 12/26/2022 1:02 PM CDT 2 Units Ab d Right Lower Quadrant $ Given 12/25/2022 9:44 PM CDT 2 Units Le ft Arm iopamidol (Isovue 370) 76 % contrast Intravenous, CONTRAST ONCE, Starting on Mon12/26/22 at 0929, Until Mon12/26/22 at 1901 $ Given - Contrast 12/26/2022 9:30 AM CDT 100 mL lidocaine (Lidoderm) 5 % patch 1 patch 1 patch, Administer over 12 Hours, EVERY 24 HOURS, First dose on 12/24/22 at 1115, Until Discontinued, Apply to neck and remove patch after a max of 12 hours of application within a 24 hour period. $ Applied 12/24/2022 11:15 AM CDT 1 patch Right Neck magnesium oxide (Mag-Ox) tablet 400 mg 400 mg, Oral, DAILY, First dose on Mon12/26/22 at 0900, Until Discontinued $ Given 12/26/2022 8:36 AM CDT 400 mg potassium - sodium phosphates (Phos-Nak) powder 1 packet 1 packet, Oral, Once, 1 dose, On Mon12/26/22 at 0730, Mix contents of packet in 6 to 8 ounces of water and drink, may taste better if cold Contains Phos 8 mmol, K+ 7 mEq, Na 7 mEq per packet $ Given 12/26/2022 1:19 PM CDT 1 packet rivaroxaban (Xarelto) tablet 20 mg 20 mg, Oral, DAILY, First dose on 12/24/22 at 0900, Until Discontinued, For tube administration, please refer to the MAR References links: Administration Dose of 15 mg or greater should be taken with food $ Given 12/26/2022 8:36 AM CDT 20 mg $ Given 12/25/2022 7:50 AM CDT 20 mg $ Given 12/24/2022 8:45 AM CDT 20 mg rOPINIRole (Requip) tablet 5 mg 5 mg, Oral, AT BEDTIME, First dose on 12/24/22 at 2100, Until Discontinued $ Given 12/25/2022 9:39 PM CDT 5 mg $ Given 12/24/2022 9:16 PM CDT 5 mg documented in this encounter Active and Recently Administered Medications Times are shown in CDT. Scheduled Medication Order 12/24/2022 12/25/2022 12/26/2022 amitriptyline (Elavil) tablet 50 mg 50 mg, Oral, AT BEDTIME, First dose on 12/24/22 at 2100, Until Discontinued 2115 ($ Given - Provider: Carley Garcia RN) 213 ($ Given - Provider: Carley Garcia RN) amLODIPine (Norvasc) tablet 5 mg 5 mg, Oral, DAILY, First dose on 12/24/22 at 0900, Until Discontinued 0845 ($ Given - Provider: Caesar Wang RN) 0750 ($ Given - Provider: Caesar Wang RN) 0836 ($ Given - Provider: Cipriano Martin RN) HYDROcodone-acetaminop hen ([place]) 5-325 MG tablet 1 tablet (COMPLETED) 1 tablet, Oral, ONCE, 1 dose, On 12/24/22 at 0230, Patient preference for lesser PRN pain meds may be honored when the patient requests a less strong medication, a lower dose, or a less intrusive route of administration when the lesser drug, dose and route have been ordered for the patient. This patient request must be documented in the MAR. 236 ($ Given - Provider: Sara Ahumada RN) insulin aspart (NovoLOG) pen 0-4 Units 0-4 Units, Subcutaneous, 4 TIMES DAILY - BEFORE MEALS AND AT BEDTIME, First dose on 12/24/22 at 1130, Until Discontinued, Bedside glucose should be done within 30-60 minutes of correction insulin administration. BG (mg/dL) Corrective Action LESS than 70 follow Hypoglycemic guidelines, 70-220 NO bedtime correction insulin 221-260 GIVE 1 unit of insulin 261-300 GIVE 2 units of insulin 301-350 GIVE 3 units of insulin Greater than 350 GIVE 4 units of insulin and notify physician 1228 ($ Given - Provider: Caesar Wang RN)1827 (Not Administered - Provider: Caesar Wang RN - Reason: Per Administration Instructions)2116 ($ Given - Provider: Carley Garcia RN) 0745 (Not Administered - Provider: Caesar Wang RN - Reason: Per Administration Instructions)1240 ($ Given - Provider: Caesar Wang RN)1618 ($ Given - Provider: Caesar Wang RN)2144 ($ Given - Provider: Carley Garcia RN) 0921 (Not Administered - Provider: Cipriano Martin RN - Reason: Per Administration Instructions)1302 ($ Given - Provider: Ish Andres RN)1740 ($ Given - Provider: Cipriano Martin RN) iopamidol (Isovue 370) 76 % contrast Intravenous, CONTRAST ONCE, Starting on Mon12/26/22 at 0929, Until Mon12/26/22 at 1901 0930 ($ Given - Contrast - Provider: Madelyn Bourne, RT(R)CT) lidocaine (Lidoderm) 5 % patch 1 patch 1 patch, Administer over 12 Hours, EVERY 24 HOURS, First dose on 12/24/22 at 1115, Until Discontinued, Apply to neck and remove patch after a max of 12 hours of application within a 24 hour period. 1115 ($ Applied - Provider: Caesar Wang RN)2119 (Removed - Provider: Carley Garcia RN) 1618 (Not Administered - Provider: Caesar Wang RN - Reason: Refused-Patient) 1300 (Not Administered - Provider: Ish Andres RN - Reason: Refused-Patient) magnesium oxide (Mag-Ox) tablet 400 mg 400 mg, Oral, DAILY, First dose on Mon12/26/22 at 0900, Until Discontinued 0836 ($ Given - Provider: Cipriano Martin RN) potassium - sodium phosphates (Phos-Nak) powder 1 packet (COMPLETED) 1 packet, Oral, Once, 1 dose, On Mon12/26/22 at 0730, Mix contents of packet in 6 to 8 ounces of water and drink, may taste better if cold Contains Phos 8 mmol, K+ 7 mEq, Na 7 mEq per packet 1319 ($ Given - Provider: Ish Andres RN) rivaroxaban (Xarelto) tablet 20 mg 20 mg, Oral, DAILY, First dose on Mon12/24/22 at 0900, Until Discontinued, For tube administration, please refer to the MAR References links: Administration Dose of 15 mg or greater should be taken with food 0845 ($ Given - Provider: Caesar Wang RN) 0750 ($ Given - Provider: Caesar Wang RN) 0836 ($ Given - Provider: Cipriano Martin RN) rOPINIRole (Requip) tablet 5 mg 5 mg, Oral, AT BEDTIME, First dose on 12/24/22 at 2100, Until Discontinued 2115 ($ Given - Provider: Carley Garcia RN) 2138 ($ Given - Provider: Carley Garcia RN) PRN Medication Order 12/24/2022 12/25/2022 12/26/2022 HYDROcodone-acetaminophen ([place]) 5-325 MG tablet 1 tablet 1 tablet, Oral, EVERY 4 HOURS PRN, Mild Pain, Moderate Pain, Severe Pain, Starting on 12/24/22 at 1054, Until 12/26/22 at 1901, Patient preference for lesser PRN pain meds may be honored when the patient requests a less strong medication, a lower dose, or a less intrusive route of administration when the lesser drug, dose and route have been ordered for the patient. This patient request must be documented in the MAR. 1115 ($ Given - Provider: Caesar Wang RN)1641 ($ Given - Provider: Caesar Wang RN)2323 ($ Given - Provider: Carley Garcia RN) 0633 ($ Given - Provider: Carley Garcia, NURIS)1617 ($ Given - Provider: Caesar Wang RN)2142 ($ Given - Provider: Carley Garcia RN) 0547 ($ Given - Provider: Carley Garcia RN)1428 ($ Given - Provider: Cipriano Martin, NURIS) hydrOXYzine HCl (Atarax) tablet 10 mg 10 mg, Oral, 3 TIMES DAILY PRN, Itching, Starting on 12/24/22 at 1718, Until 12/26/22 at 1901 2323 ($ Given - Provider: Carley Garcia RN) 1106 ($ Given - Provider: Caesar Wang RN)2139 ($ Given - Provider: Carley Garcia RN) documented in this encounter Care Teams Pier Runner Relationship Specialty Start Date End Date Justen Gale MD PCP - General 07/05/21 documented as of this encounter
--- OUTSIDE RECORDS SUMMARY | 2024-04-26 02:32 | XMS_ITS | Encounter Summary ---
Author Organization [facility] Address [address] [place] [address] Care Team Providers Care Solar Designer/Installer Name Role Phone Justen Gale MD Primary Care Provider [phone] Encounter Details Date Type Department Care Team (Latest Contact Info) Description 12/06/2021 12:51 PM CDT - 12/06/2021 11:59 PM CDT Hospital Encounter [facility] OP DRAW STATION [address] [place] [phone] Discharge Disposition: Home or Self Care Social [...] FINE LANCET) USE FOUR TIMES DAILY 03/10/2021 BiosensiaTOUCH ULTRA test strip 4 times daily 02/01/2021 [...] days 3.6 mL 11/16/2021 12/16/2021 HYDROcodone-acetamin ophen ([place]) 7.5-325 MG tablet Take 1 tablet by mouth every 6 hours as needed for Pain 04/04/2022 LANTUS SOLOSTAR pen Inject 10 (ten) Units subcutaneously once daily for 30 days 3 mL 11/16/2021 12/16/2021 naloxone HCl (NARCAN) 4 MG/0.1ML nasal spray as needed 05/13/2021 04/20/2023 NYSTOP 145840 UNIT/GM powder APPLY TO THE AFFECTED AREA [...] on filedocumented in this encounter Care Teams Solar Designer/Installer Relationship Specialty Start Date End Date Justen Gale MD PCP - General 07/05/21 documented as of this encounter
--- OUTSIDE RECORDS SUMMARY | 2024-04-26 02:32 | XMS_ITS | Encounter Summary ---
Author Organization [facility] Address [address] [place] [address] Care Team Providers Care Biodiesel Process Control Technician Name Role Phone Justen Gale MD Primary Care Provider Reason for Visit * Reason Onset Date Comments DRAINAGE FROM INCISION 02/21/2023 Encounter Details Date Type Department Care Team (Late st Contact Info) Description 02/21/2023 Telephone [facility] - Neurosurgery [address] [place] [address], [place] [address] Angeline Avila, RN DRAINAGE FROM INCISION Social History Tobacco Use Types Packs/Day Years [...] and heating? Not hard at all 02/22/2023 [facility] Occup[facility] - Occupational Stress [...] Telephone Encounter - Angeline Avila RN - 02/21/2023 4:09 PM CDT Returned patient call. Patient states her incision is oozing and pain at the site. States she is ather local ER waiting to be seen. Adv patient to come to [facility] ED to be evaluated. Message sent to Dr Gregg to adv pt is on her way to [facility] ED. documented in this encounter Plan of Treatment Not on file documented as of this encounter Visit Diagnoses Not on filedocumented in this encounter Care Teams Biodiesel Process Control Technician Relationship Specialty Start Date End Date Justen Gale MD PCP - General 07/05/21 documented as of this encounter
--- OUTSIDE RECORDS SUMMARY | 2024-04-26 02:32 | XMS_ITS | Encounter Summary ---
Author Organization [facility] Address [address] [facility] [place] [address] Care Team Providers Care Sleeping Bag Filler Name Role Phone Justen Gale MD Primary Care Provider [phone] Encounter Details Date Type Department Care Team (Latest Contact Info) Description 02/06/2023 12:24 PM CDT - 02/06/2023 11:59 PM CDT Hospital Encounter [facility] [address] [place] [address] Maxi Gregg MD [address] [address] Discharge Disposition: Home or Self [...] and heating? Not hard at all 12/23/2022 [facility] [place] [facility] - Occupational Stress [...] mouth once daily 07/17/2022 05/19/2023 HYDROcodone-acetaminoph en ([place]) 10-325 MG tablet Take 1 (one) tablet [...] Procedure Name Priority Date/Time Associated Diagnosis Comments URINE MICROSCOPIC ONLY REFLEX TO CULTURE Routine 02/06/2023 1:31 PM CDT Pre-op testing URINALYSIS REFLEX MICROSCOPIC REFLEX CULTURE Routine 02/06/2023 1:31 PM CDT Pre-op testing CBC W AUTO DIFFERENTIAL Routine 02/06/2023 1:31 PM CDT Pre-op testing BASIC METABOLIC PANEL (CALCIUM TOTAL) Routine 02/06/2023 1:31 PM CDT Pre-op testing PTT Routine 02/06/2023 1:30 PM CDT Pre-op testing PT-INR Routine 02/06/2023 1:30 PM CDT Pre-op testing documented in this encounter Results * (ABNORMAL) URINE MICROSCOPIC ONLY REFLEX TO CULTURE (02/06/2023 1:31 PM CDT) Reflex Status Culture not indicated 02/06/2023 1:46 PM CDT [facility] RBC UA 0-2 0 - 5 # /hpf 02/06/2023 1:46 PM CDT [facility] WBC UA 0-5 0 - 5 # /hpf 02/06/2023 1:46 PM CDT [facility] Bacteria UA None Seen None Seen 02/06/2023 1:46 PM CDT [facility] Squamous Epithelial Cells None Seen 0 - 5 /hpf 02/06/2023 1:46 PM CDT [facility] Mucus UA 2+ /LPF 02/06/2023 1:46 PM CDT [facility] Hyaline Casts 3-5(A) 0 - 2 /LPF 02/06/2023 1:46 PM CDT [facility] Urine URINE SPECIMEN OBTAINED BY CLEAN CATCH PROCEDURE / Unknown Collection / Unknown 02/06/2023 1:31 PM CDT 02/06/2023 1:33 PM CDT Narrative [facility] - 02/06/2023 1:46 PM CDT Maxi Gregg MD LAB - URINALYSIS ORDERABLES [facility] [address] [place] [address] * (ABNORMAL) URINALYSIS REFLEX MICROSCOPIC REFLEX CULTURE (02/06/2023 1:31 PM CDT) Color UA Yellow Straw, Yellow 02/06/2023 1:43 PM CDT [facility] Clarity UA Clear Clear 02/06/2023 1:43 PM CDT [facility] Glucose UA 3+(A) Negative 02/06/2023 1:43 PM CDT [facility] Bilirubin UA Negative Negative 02/06/2023 1:43 PM CDT [facility] Ketone UA Negative Negative 02/06/2023 1:43 PM CDT [facility] Specific [place] UA 1.020 1.005 - 1.030 02/06/2023 1:43 PM CDT [facility] Blood UA 1+(A) Negative 02/06/2023 1:43 PM CDT [facility] pH UA 5.0 5.0 - 8.0 pH 02/06/2023 1:43 PM CDT [facility] Protein UA Negative Negative 02/06/2023 1:43 PM CDT [facility] Urobilinogen UA Negative Negative mg/dL 02/06/2023 1:43 PM CDT [facility] Nitrite UA Negative Negative 02/06/2023 1:43 PM CDT [facility] Leukocyte UA Negative Negative 02/06/2023 1:43 PM CDT [facility] Urine Microscopy Urine microscopy to follow 02/06/2023 1:43 PM CDT [facility] Reflex Status Culture not indicated 02/06/2023 1:43 PM CDT [facility] Urine URINE SPECIMEN OBTAINED BY CLEAN CATCH PROCEDURE / Unknown Collection / Unknown 02/06/2023 1:31 PM CDT 02/06/2023 1:33 PM CDT [facility] - 02/06/2023 1:43 PM CDT Maxi Gregg MD LAB - URINALYSIS ORDERABLES [facility] [address] [place] [address] * CBC WITH DIFFERENTIAL (02/06/2023 1:31 PM CDT) WBC 8.9 4.4 - 10.7 x10E9/L 02/06/2023 1:41 PM CDT [facility] WBC Corrected 02/06/2023 1:41 PM CDT [facility] RBC 5.05 3.80 - 5.20 x10E12/L 02/06/2023 1:41 PM CDT [facility] Hemoglobin 14.6 12.0 - 15.6 gm/dL 02/06/2023 1:41 PM CDT [facility] Hematocrit 45.5 35.9 - 45.5 % 02/06/2023 1:41 PM CDT [facility] MCV 90.1 80.7 - 98.3 fl 02/06/2023 1:41 PM CDT [facility] MCH 28.9 26.7 - 34.0 pg 02/06/2023 1:41 PM CDT [facility] MCHC 32.1 30.8 - 35.9 gm/dL 02/06/2023 1:41 PM CDT [facility] Platelet Count 264 153 - 416 x10E9/L 02/06/2023 1:41 PM CDT [facility] RDW-CV 13.8 12.1 - 14.9 % 02/06/2023 1:41 PM CDT [facility] MPV 10.0 9.4 - 12.9 fl 02/06/2023 1:41 PM CDT [facility] Neutrophils % 63.1 44.0 - 73.0 % 02/06/2023 1:41 PM CDT [facility] Lymphocytes % 27.2 20.0 - 43.0 % 02/06/2023 1:41 PM CDT [facility] Monocytes % 6.3 5.0 - 13.0 % 02/06/2023 1:41 PM CDT [facility] Eosinophils % 2.8 0.0 - 6.0 % 02/06/2023 1:41 PM CDT [facility] Basophils % 0.4 0.0 - 2.0 % 02/06/2023 1:41 PM CDT [facility] Immature Granulocytes 0.2 0 - 1 % 02/06/2023 1:41 PM CDT [facility] Neutrophil Absolute 5.60 2.01 - 7.14 x10E9/L 02/06/2023 1:41 PM CDT [facility] Lymphocytes Absolute 2.42 1.07 - 3.94 x10E9/L 02/06/2023 1:41 PM CDT [facility] Monocytes Absolute 0.56 0.26 - 1.07 x10E9/L 02/06/2023 1:41 PM CDT [facility] Eosinophils Absolute 0.25 0 - 0.47 x10E9/L 02/06/2023 1:41 PM CDT [facility] Basophils Absolute 0.04 0 - 0.08 x10E9/L 02/06/2023 1:41 PM CDT [facility] Immature Granulocytes Absolute 0.02 0.00 - 0.06 x10E9/L 02/06/2023 1:41 PM CDT [facility] nRBC Auto 0 /100 WBC 02/06/2023 1:41 PM CDT [facility] Blood BLOOD SPECIMEN / Unknown Lab Venipuncture / Unknown 02/06/2023 1:31 PM CDT 02/06/2023 1:33 PM CDT Maxi Gregg MD LAB - HEMATOLOGY ORDERABLES [facility] [address] [place] [address] * (ABNORMAL) BASIC METABOLIC PANEL (CALCIUM TOTAL) (02/06/2023 1:31 PM CDT) [facility] Glucose 258(H) 70 - 105 mg/dL 02/06/2023 2:00 PM CDT [facility] Sodium 136 136 - 145 mmol/L 02/06/2023 2:00 PM CDT [facility] Potassium 3.7 3.5 - 5.1 mmol/L 02/06/2023 2:00 PM CDT [facility] Chloride 103 98 - 107 mmol/L 02/06/2023 2:00 PM CDT [facility] CO2 25 22 - 29 mmol/L 02/06/2023 2:00 PM CDT [facility] Calcium 9.5 8.4 - 10.4 mg/dL 02/06/2023 2:00 PM CDT [facility] Anion Gap 8 6 - 16 mmol/L 02/06/2023 2:00 PM CDT [facility] BUN 13 7 - 26 mg/dL 02/06/2023 2:00 PM CDT [facility] Creatinine 0.93 0.57 - 1.11 mg/dL 02/06/2023 2:00 PM CDT [facility] eGFR by CKD-EPI 68(L) >=90 mL/min/1.7 3 m2 02/06/2023 2:00 PM CDT [facility] Blood BLOOD SPECIMEN / Unknown Lab Venipuncture / Unknown 02/06/2023 1:31 PM CDT 02/06/2023 1:33 PM CDT Maxi Gregg MD LAB - CHEMISTRY ORDERABLES [facility] [address] [place], [place] [id number] * PTT (02/06/2023 1:30 PM CDT) PTT 35.4 23.0 - 38.4 sec 02/06/2023 1:50 PM CDT [facility] Blood BLOOD SPECIMEN / Unknown Lab Venipuncture / Unknown 02/06/2023 1:30 PM CDT 02/06/2023 1:33 PM CDT Narrative [facility] - 02/06/2023 1:50 PM CDT Heparin Therapeutic Range for PTT: ??69.0 - 110.0 seconds. Maxi Gregg MD LAB - COAGULATIO N ORDERABLES Performing Organization Address City/[facility] Co de Phone Number [facility] [address] [place], [place] [phone] * (ABNORMAL) PT-INR (02/06/2023 1:30 PM CDT) PT 25.7(H) 12.1 - 14.8 sec 02/06/2023 1:50 PM CDT [facility] INR 2.5(H) 0.9 - 1.1 02/06/2023 1:50 PM CDT [facility] Blood BLOOD SPECIMEN / Unknown Lab Venipuncture / Unknown 02/06/2023 1:30 PM CDT 02/06/2023 1:33 PM CDT Narrative [facility] - 02/06/2023 1:50 PM CDT Conventional Warfarin Anticoagulant Therapy: INR Reference Range: ??2.0-3.0 Intensive Warfarin Anticoagulant Therapy: INR Reference Range: ? 2.5-3.5 Maxi Gregg MD LAB - COAGULATIO N ORDERABLES Performing Organization Address City/[facility] Co de Phone Number [facility] [address] [place] [phone] documented in this encounter Visit Diagnoses Diagnosis Pre-op testing- Primary Preoperative examination, unspecified documented in this encounter Care Teams Sleeping Bag Filler Relationship Specialty Start Date End Date Justen Gale MD PCP - General 07/05/21 documented as of this encounter
--- OUTSIDE RECORDS SUMMARY | 2024-04-26 02:32 | XMS_ITS | Encounter Summary ---
Author Organization [facility] Address [address] [place] [address] Care Team Providers Care Concert Singer Name Role Phone Justen Gale MD Primary Care Provider [phone] Reason for Visit * Reason Onset Date Comments Results 05/02/2022 Encounter Details Date Type Department Care Team (Late st Contact Info) Description 05/02/2022 Telephone [facility] [address] [place] [address] Opal Orellana M, ACADEMIC ADVISOR-THREE DIMENSIONAL MAP MODELER [address] [place] [phone] Results Social History Tobacco Use Types Packs/Day Years [...] Miscellaneous Notes * Telephone Encounter - Opal Orellana APRN-CNP - 05/02/2022 12:30 PM LIME SLUDGE MIXER Patient allergic to all other options of oral antibiotics for reported infection. ITA Jones 05/02/2022 12:39 PM SLUDGE MIXER documented in this encounter Plan of Treatment Not on file documented as of this encounter Visit Diagnoses Not on filedocumented in this encounter Care Teams Concert Singer Relationship Specialty Start Date End Date Justen Gale MD PCP - General 07/05/21 documented as of this encounter
--- OUTSIDE RECORDS SUMMARY | 2024-04-26 02:32 | XMS_ITS | Encounter Summary ---
Author Organization [facility] Address [address] [facility] [place] [address] Care Team Providers Care User Interface Engineer Name Role Phone Justen Gale MD Primary Care Provider [phone] Reason for Visit * Reason Onset Date Comments Results 06/28/2022 Encounter Details Date Type Department Care Team (Late st Contact Info) Description 06/28/2022 Telephone [facility] [address] [facility], [place] [address] Opal Orellana, FUEL OIL CLERK-CHIEF DIGITAL MEDIA OFFICER [address] [place] [address] [place] [phone] Results Social History Tobacco Use Types Packs/Day [...] Telephone Encounter - Opal Orellana APRN-CNP - 06/28/2022 1:37 PM VETERINARIAN HELPER Patient will stop trospium and start oxybutynin 10 mg XL due to sensitivity to the mediation. ITA Jones 06/28/2022 1:42 PM RINARIAN HELPER documented in this encounter Plan of Treatment Not on file documented as of this encounter Visit Diagnoses Diagnosis OAB (overactive bladder)- Primary Hypertonicity of bladder documented in this encounter Care Teams User Interface Engineer Relationship Specialty Start Date End Date Justen Gale MD PCP - General 07/05/21 documented as of this encounter
--- OUTSIDE RECORDS SUMMARY | 2024-04-26 02:32 | XMS_ITS | Encounter Summary ---
Author Organization [facility] Address [address] [facility] [place] [address] Care Team Providers Care Auto Service Representative Name Role Phone Justen Gale MD Primary Care Provider [phone] Reason for Visit * Reason Comments Refill Request Encounter Details Date Type Department Care Team (Late st Contact Info) Description 12/13/2022 Refill [facility] - Urology [address] [place] [address] [address] [place] [phone] Opal Orellana, BANANA RIPENING ROOM SUPERVISOR-INCLUSION PARAEDUCATOR [address] [place] [phone] Refill Request Social History Tobacco Use Types [...] on filedocumented in this encounter Care Teams Auto Service Representative Relationship Specialty Start Date End Date Justen Gale MD PCP - General 07/05/21 documented as of this encounter
--- OUTSIDE RECORDS SUMMARY | 2024-04-26 02:32 | XMS_ITS | Encounter Summary ---
Author Organization [facility] Address [address] [facility] [place] [address] Care Team Providers Care Groundskeeping Maintenance Name Role Phone Justen Gale MD Primary Care Provider [phone] Reason for Visit * Reason Onset Date Comments Surgery Scheduling 12/06/2022 Encounter Details Date Type Department Care Team (Late st Contact Info) Description 12/06/2022 Telephone [facility] - Neurosurgery [address] [place] [address], [place] [address] Angeline Avila, nutrition club ambassador Scheduling Social History Tobacco Use Types Packs/Day [...] Telephone Encounter - Angeline Avila RN - 12/06/2022 3:02 PM CDT Left voice mail to return call to schedule surgery. documented in this encounter Plan of Treatment Not on file documented as of this encounter Visit Diagnoses Not on filedocumented in this encounter Care Teams Groundskeeping Maintenance Relationship Specialty Start Date End Date Justen Gale MD PCP - General 07/05/21 documented as of this encounter
--- OUTSIDE RECORDS SUMMARY | 2024-04-26 02:32 | XMS_ITS | Encounter Summary ---
Author Organization [facility] Address [address] [place] [address] Care Team Providers Care Kaiwhakahaere Name Role Phone Justen Gale MD Primary Care Provider [phone] Encounter Details Date Type Department Care Team (Latest Contact Info) Description 12/06/2021 Travel Social History Tobacco Use Types Packs/Day [...] on filedocumented in this encounter Care Teams Kaiwhakahaere Relationship Specialty Start Date End Date Justen Gale MD PCP - General 07/05/21 documented as of this encounter
--- OUTSIDE RECORDS SUMMARY | 2024-04-26 02:32 | XMS_ITS | Encounter Summary ---
Author Organization [facility] Address [address] [facility] [place] [address] Care Team Providers Care Crusher Machine Operator Name Role Phone Justen Gale MD Primary Care Provider [phone] Encounter Details Date Type Department Care Team (Latest Contact Info) Description 12/16/2021 Travel Social History Tobacco Use Types Packs/Day [...] Recorded In the last 10 days, have yo u been in contact with someone who was [...] on filedocumented in this encounter Care Teams Crusher Machine Operator Relationship Specialty Start Date End Date Justen Gale MD PCP - General 07/05/21 documented as of this encounter
--- OUTSIDE RECORDS SUMMARY | 2024-04-26 02:32 | XMS_ITS | Encounter Summary ---
Author Organization [facility] Address [address] [facility] [place] [address] Care Team Providers Care Sales Professional Name Role Phone Justen Gale MD Primary Care Provider [phone] Reason for Visit * Reason Onset Date Comments Appointment 01/04/2022 Encounter Details Date Type Department Care Team (Late st Contact Info) Description 01/04/2022 Telephone [facility] [address] [place] [id number] Leyda Crane Appointment Social History Tobacco Use Types Packs/Day [...] encounter Miscellaneous Notes * Telephone Encounter - Leyda Crane - 01/04/2022 3:05 PM CDT Left voice message appointment change 01/10 at 10:30 am questions [phone] documented in this encounter Plan of Treatment Not on file documented as of this encounter Visit Diagnoses Not on filedocumented in this encounter Care Teams Sales Professional Relationship Specialty Start Date End Date Justen Gale MD PCP - General 07/05/21 documented as of this encounter
--- OUTSIDE RECORDS SUMMARY | 2024-04-26 02:32 | XMS_ITS | Encounter Summary ---
Author Organization [facility] Address [address] [facility] [place] [address] Care Team Providers Care Gleason Gear Generator Name Role Phone Justen Gale MD Primary Care Provider [phone] Reason for Visit * Reason Onset Date Comments Med Question 11/29/2021 Encounter Details Date Type Department Care Team (Late st Contact Info) Description 11/29/2021 Telephone [facility] [address] [facility] [place] [phone] Chantel Bentley Med Question Social History Tobacco Use Types Packs/Day Years [...] encounter Miscellaneous Notes * Telephone Encounter - Aminah Oneill MD - 11/29/2021 3:[address] Torres. I called back the patient. No answer. Left message. I then called and spoke with [facility] pharmacist [place]. Order: (1) Extend ertapenem 1 g IV q24h for 1 more week through 12/06/2021. (2) Check CRP, ESR, CBC and CMP on 12/01/2021. The patient is scheduled to see Dr. Torres in clinic on 12/06/2021. * Telephone Encounter - Chantel Bentley - 11/29/2021 10:26 AM CDT Pt called re: midline, d/c abx date, and removal of line. Would like to be contacted documented in this encounter Plan of Treatment Not on file documented as of this encounter Visit Diagnoses Not on filedocumented in this encounter Care Teams Gleason Gear Generator Relationship Specialty Start Date End Date Justen Gale MD PCP - General 07/05/21 documented as of this encounter
--- OUTSIDE RECORDS SUMMARY | 2024-04-26 02:32 | XMS_ITS | Encounter Summary ---
Author Organization [facility] Address [address] [facility] [place] [address] Care Team Providers Care Jumpbasting Facing Baster Name Role Phone Justen Gale MD Primary Care Provider [phone] Reason for Visit * Auth/Cert (Routine) Specialty Diagnoses / Procedures Referred By Contkristina t Referred To Contact Diagnoses Diagnosis unknown Diagnosis unknown [R69] Procedures OK INSRT/REPL SPINAL NEUROSTIM PULSE GEN/RECV INSERTION/REPLACEMENT SPINAL CORD STIMULATOR Referral ID Status Reason Start Date Expiration Date Visits Re quested Visits Authorized [id number] 1 1 Encounter Details Date Type Department Care Team (Late st Contact Info) Description 02/16/2023 1:13 PM CDT Anesthesia Event [facility] [address] [place] [address] Dillon Zamora, DO [address] [facility] [place] [address] Cordelia Barrientos, RESIDENTIAL MENTAL HEALTH WORKER-HOT SHOT [address] [facility] [place] [address] Anesthesia Record Procedure Summary Procedure Name Responsible Anesthesiologist Anesthesia Start Time Anesthesia Stop Time PLACEMENT OF NEW BATTERY IN THE LEFT LUMBAR REGION WELL CONNECTION WITH HER PADDLE AND WIRE SYSTEM (Left: Back) Dillon Zamora DO 02/16/23 1313 02/16/23 1441 Events Date Time Event Comment 02/16/2023 1313 An Start 1313 An Start Data 1315 PT Reassessment 1321 Induction 1321 An Intubation 1327 an gustavo now 1339 Timeout Anesthesia part icipated in timeout at the time documented in the record by nursing. 1339 Stop ABX 1430 Extubation Spontaneous res pirations resumed. Adequate TV/RR. Suctioned. Extubated with positive pressure. Exchanges well. O2 FM applied to patient. 1432 an stop data 1432 Electnc Sig This record is electronically signed by the providers listed under staff. 1432 ANPTO2 1441 An Stop Meds Name Total midazolam 2 mg/2mL injection 2 mg fentaNYL 100 mcg/2mL injection 100 mcg lidocaine 2% injection (20 mg/ml) 100 mg propofol 200mg/20mL injection 200 mg succinylcholine (ANECTINE) 100 mg/5 mL i njection 100 mg rocuronium 50mg/5mL injection 50 mg phenylephrine 1000 mcg/10mL injection 20 0 mcg dexamethasone 4 mg/ml injection 8 mg ondansetron 4 mg/2mL injection 4 mg sugammadex 200 mg/2 mL injection 250 mg diphenhydrAMINE 50mg/ml injection 25 mg HYDROmorphone 1 mg/ml injection 0.25 mg lactated ringers infusion 800 mL * Agents Name Insp. N2O Exp. Sevoflurane Exp. N2O O2 Air Insp. Sevoflurane N2O * Blood No blood administrations on file. Lines, Drains, and Airways Type Details Placement Removal Midline Date: 11/16/21; Time : 1706; Placed By: Molly Mcdonough RN; Arm: Right; Attempts: 1; Vein Used: Cephalic Vein; Lumens: Single Lumen; Tolerance: Well 11/16/21 1706 by Molly Mcdonough, NURIS 02/18/23 0745 by Cielo Smith RN Peripheral IV Date: 02/16/23; Time : 1200; Orientation: Anterior, Right; Placed By: Lucia LAWLER; Tolerance: Well 02/16/23 1200 by Brenda Hou RN 02/16/23 1747 by Carolina Mendez, NURIS ETT Date: 02/16/23; Time : 1321; Placed By: Kellie Toscano; Vent: mask not attempted; Induction: Rapid Sequence; Blade Type: Video; Blade Size: 3; Laryngoscopy View: Grade 1 (full cords); Intubation Adjuncts: Stylet, Video Laryngoscope; Placement: Oral; Tube Type: Cuffed-inflated; Tube Size(mm): 7 MM; Depth of Insertion: 21 CM; Measured From: teeth; Attempts: 1; Cuff Infated: Air; Verified By: Direct visualization, Bilateral breath sounds, Chest X-ray, CO2 Monitor, CO2 Detector 02/16/23 1321 by Cordelia Barrientos APRN-CRNA 02/16/23 1432 by Cordelia Barrientos APRN-CRNA Procedural Site (Incision) 02/16/23; 1340; Right, Lower; Back; 02/16/23; 2358 02/16/23 1340 by David Avila RN 02/16/23 2358 by Generic, Auto Release Procedural Site (Incision) 02/16/23; 1349; Lower, Left; Back; 02/16/23; 2358 02/16/23 1349 by David Avila RN 02/16/23 2358 by Generic, Auto Release documented in this encounter Social History Tobacco [...] and heating? Not hard at all 12/23/2022 [facility] [place] of Occupat ional Health - Occupational Stress [...] No 12/23/2022 Housing Stability Vital Sign Answer [place] e Recorded In the last 12 months, [...] place to sleep or slept in a custodial (including now)? No 12/23/2022 Sex and Gender [...] No 12/23/2022 documented as of this encounter Progress Notes * Dillon Zamora, - 02/16/2023 2:57 PM CDT ANESTHESIA POSTOP EVALUATION NOTE Procedure: PLACEMENT OF NEW BATTERY IN THE LEFT LUMBAR REGION WELL CONNECTION WITH HER PADDLEAND WIRE SYSTEM (Left: Back) Karly Marques is a 67 year old female Patient Vitals for the past 6 hrs: BP Temp Pulse Resp SpO2 Pain Rating Score #1 Pain Scale/Observation 02/16/23 1149 143/89 98.3 ??F (36.8 ??C) 97 18 99 % -- -- 02/16/23 1435 110/93 98.1 ??F (36.7 ??C) 100 20 100 % -- -- 02/16/23 1439 110/93 -- 98 19 99 % 10 N;B 02/16/23 1440 92/74 -- 99 17 100 % -- -- 02/16/23 1445 112/75 -- 95 19 93 % -- B 02/16/23 1450 104/70 -- 93 17 93 % 4 N;B 02/16/23 1455 -- -- 93 18 96 % -- -- Anesthesia Type: general ETT Mental Status: awake, sufficiently recovered from acute administration of anesthesia to participatein the evaluation and neurologic status has returned to expected level of consciousness Respiratory Function: natural Cardiac Function: stable Postop Pain: acceptable to the patient Postop Hydration: adequate Postop Nausea: none Assessment: no apparent anesthetic complications, patient tolerated procedure well and other - please comment Patient Disposition: Release from Anesthesia Care NOTABLE EVENTS: No notable events documented. * Darshan Guerrero APRN-HOT SHOT - 02/16/2023 12:33 PM CDT ANESTHESIA PREOPERATIVE EVALUATION NOTE Procedure: PLACEMENT OF NEW BATTERY IN THE LEFT LUMBAR REGION WELL CONNECTION WITH HER PADDLEAND WIRE SYSTEM (Left: Back) NPO status: Since Midnight; *Except Oral meds with H2O; NO Tobacco Since Midnight (02/16/2023 12:10PM) Last Solids/Dairy: 1900 (02/16/2023 12:10 PM) Vitals: Patient Vitals for the past 6 hrs: BP Temp Pulse Resp SpO2 02/16/23 1149 143/89 98.3 ??F (36.8 ??C) 97 18 99 % LMP: No LMP recorded. Patient is postmenopausal. OB Status: Postmenopausal ANESTHESIA PRE-EVALUATION NOTE History of Present Illness: morbid obesity, anxiety/depression, HTN, LUL and DM II The patient is a current non-smoker. Physical Exam: Orientation X3 Airway/Mallampati Score: III (receeding chin) Mouth Opening Distance: 2 fingerwidths Neck ROM: limited TM Distance: < 3 FB Teeth: normal Heart: normal - S1 S2 Lungs: other - comments Abdomen Exam: obese Physical Exam Additional Comments: Stress test/ECHO- negative per patient. Review of Systems: History of anesthetic complications: No Sleep Apnea Risk: Yes, Large neck circumference, CPAP - compliant Malignant Hyperthermia: No GERD: Yes (gastroparesis) Poor Exercise Tolerance: Yes Recent Chest Pain: No Shortness of Breath: No AICD/Pacemaker: No Renal Disease: No Diagnostic Tests: Echo(s) reviewed: Yes. Lab(s) reviewed: Yes. Other Findings: Technically difficult/suboptimal echocardiogram. Left ventricular systolic function is normal with an ejection fraction by Biplane Method of Discs of 48%. There is moderate concentric left ventricular hypertrophy. The left ventricular diastolic function is abnormal (Grade I), consistent with low normal left ventricle filling pressures. The right ventricular cavity size is enlarged. Normal right ventricular systolic function. No significant valvular dysfuntion. No pulmonary hypertension, estimated pulmonary arterial systolic pressure is 24 mmHg, assuming RA pressure of 3 mm Hg. ANESTHESIA PREOPERATIVE EVALUATION NOTE Procedure: PLACEMENT OF NEW BATTERY IN THE LEFT LUMBAR REGION WELL CONNECTION WITH HER PADDLEAND WIRE SYSTEM (Left: Back) NPO status: Since Midnight; *Except Oral meds with H2O; NO Tobacco Since Midnight (02/16/2023 12:10PM) Last Solids/Dairy: 1900 (02/16/2023 12:10 PM) Vitals: Patient Vitals for the past 6 hrs: BP Temp Pulse Resp SpO2 02/16/23 1149 143/89 98.3 ??F (36.8 ??C) 97 18 99 % LMP: No LMP recorded. Patient is postmenopausal. OB Status: Postmenopausal ANESTHESIA PRE-EVALUATION NOTE The patient is a current non-smoker. Physical Exam: Orientation X3 Airway/Mallampati Score: III (receeding chin) Mouth Opening Distance: 2 fingerwidths Neck ROM: limited TM Distance: < 3 FB Teeth: normal Heart: normal - S1 S2 Lungs: other - comments Abdomen Exam: obese Physical Exam Additional Comments: Admitted to the hospital a few days ago with atypical CP. Stresstest/ECHO- negative . Review of Systems: History of anesthetic complications: No Sleep Apnea Risk: Yes, Large neck circumference, CPAP - compliant GERD: Yes (gastroparesis) Poor Exercise Tolerance: Yes Recent Chest Pain: No Shortness of Breath: No AICD/Pacemaker: No Renal Disease: No ANESTHESIA PLAN ASA Score: 3 NPO Status: No solids since midnight and No liquids within 2 hours Anesthesia Plan: general ETT (glidescope) Planned Induction: intravenous Planned Postop Destination: PACU and ICU Anesthetic plan was discussed with: patient Anesthetic Plan discussion was: Consented The patient's procedural Anesthetic Plan was discussed with the HOT SHOT. BMI, Height, Weight Tobacco History Estimated body mass index is 51.96 kg/m?? as calculated from the following: Height as of this encounter: 1.549 m (5' 1 ). Weight as of this encounter: 124.7 kg (275 lb). Social History Tobacco Use Smoking Status Former ??? Packs/day: .5 ??? Types: Cigarettes ??? Quit date: 12/05/1977 ??? Years since quittin.2 Smokeless Tobacco Never Alcohol History Drug History Social History Substance and Sexual Activity Alcohol Use No Social History Substance and Sexual Activity Drug Use No Outpatient Medications: Inpatient Medications: Outpatient Medications Marked as Taking for the 02/16/23 encounter (Hospital Encounter) Medication Sig Last Dose ??? amitriptyline at bedtime 02/15/2023 ??? ascorbic acid Take 1 (one) tablet by mouth 2 times daily 02/15/2023 ??? exemestane Take 1 (one) tablet by mouth DAILY 02/15/2023 ??? HumaLOG KwikPen 22 (twenty two) Units 3 times daily before meals 02/15/2023 ??? hydroCHLOROthiazide Take 1 (one) capsule by mouth once daily 02/15/2023 ??? HYDROcodone-acetaminophen Take 1 (one) tablet by mouth every 6 hours as needed for Pain 02/15/2023 ??? B-D ULTRAFINE III SHORT PEN 4 times daily 02/15/2023 ??? ONETOUCH DELICA PLUS 33G EXTRA FINE LANCET USE FOUR TIMES DAILY 02/15/2023 ??? Lantus SoloStar ADMINISTER 50 UNITS UNDER THE SKIN EVERY MORNING 02/15/2023 ??? methenamine hippurate TAKE 1 TABLET BY MOUTH TWICE DAILY 02/15/2023 ??? OneTouch Ultra 4 times daily 02/15/2023 ??? oxyBUTYnin CR 24hr Take 1 (one) tablet by mouth once daily 02/15/2023 ??? rOPINIRole TAKE 1 TABLET BY MOUTH EVERY NIGHT 02/15/2023 ??? Xarelto 02/10/2023 Current Facility-Administered Medications Medication Dose Last Admin ??? 0.9% NaCl 3 mL And ??? 0.9% NaCl 1-10 mL ??? acetaminophen 1,000 mg 1,000 mg at 02/16/23 1158 ??? lactated ringers New Bag at 02/16/23 1155 ??? lidocaine 0.2 mL ??? vancomycin 1,500 mg 1,500 mg at 02/16/23 1159 Allergies: Allergies Allergen Reactions ??? Latex Rash [...] Reslizumab Unknown ??? Skin Adhesives Skin Reactions Relevant Problems Anesthesia (+) LUL (obstructive sleep apnea) Cardiovascular (+) Essential hypertension Neuro/Psych (+) Acute intractable headache, unspecified headache type (+) CVA (cerebral vascular accident) ([facility]/HCC) (+) Intractable chronic post-traumatic headache Pulmonary (+) LUL (obstructive sleep apnea) Endocrine (+) Type 2 diabetes mellitus without complication ([facility]) Problem List: Patient Active Problem List Diagnosis Date Noted ??? Chronic back pain 08/16/2021 Priority: High ??? CVA (cerebral vascular accident) ([facility]/HCC) 01/24/2018 Priority: High ??? Anxiety and depression 11/12/2017 Priority: High ??? Chronic anticoagulation 11/09/2017 Priority: High ??? Essential hypertension 10/23/2017 Priority: High Last Assessment & Plan: On lisinopril ??? Type 2 diabetes mellitus without complication ([facility]/HCC) 08/22/2017 Priority: High Last Assessment & Plan: Hold janument. Start on SSI and accucheks Last Assessment & Plan: Hold janument. Start on SSI and accucheks Last Assessment & Plan: Chronic. Controlled. -continue home insulin regimen of lantus 50 units q am -lispro 20 units with breakfast and lunch. 22 units with dinner. ??? LUL (obstructive sleep apnea) 08/01/2017 Priority: High Last Assessment & Plan: Chronic, on CPAP at home - Continue home CPAP ??? Neuropathy 07/05/2017 Priority: High ??? Intractable chronic post-traumatic headache 12/25/2022 Priority: Not Prioritized ??? Right hand weakness 12/25/2022 Priority: Not Prioritized ??? Acute intractable headache, unspecified headache type 12/20/2022 Priority: Not Prioritized ??? Tachycardia 11/12/2021 Priority: Not Prioritized ??? Multiple subsegmental pulmonary emboli without acute cor pulmonale ([facility]/HCC) 11/12/2021 Priority: Not Prioritized ??? Wound infection complicating hardware ([facility]) 11/12/2021 Priority: Not Prioritized ??? Preoperative examination 10/30/2021 Priority: Not Prioritized ??? Acute post-operative pain 10/30/2021 Priority: Not Prioritized ??? S/P insertion of spinal cord stimulator 09/16/2021 Priority: Not Prioritized Medical History: Past Medical History: Diagnosis Date ??? Breast cancer ([facility]) ??? Chest pain ??? DVT (deep venous thrombosis) ([facility]) ??? GERD (gastroesophageal reflux disease) ??? LUL (obstructive sleep apnea) w cpap ??? Other pulmonary embolism without acute cor pulmonale ([facility]/HCC) ??? rls ??? Type 2 diabetes mellitus without complications (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 Patient is postmenopausal. Postmenopausal OB History No obstetric history on file. Covid Vaccine: Lab Results: Recent Labs Base Name 02/16/23 1213 [id number] 175* SPECIMENTYPE Cap Fingerstick Recent Labs Component Name 02/06/23 1331 WBC 8.9 RBC 5.05 HCT 45.5 HGB 14.6 PLTCOUNT 264 MCV 90.1 MCH 28.9 MCHC 32.1 MPV 10.0 Recent Labs Component Name 02/06/23 1331 BLOODUA 1+* WBCUA 0-5 NITRITEUA Negative PROTEINUA Negative Recent Labs Component Name 02/06/23 1331 SODIUM 136 POTASSIUM 3.7 CALCIUM 9.5 CHLORIDE 103 CO2 25 GLUCOSE 258* BUN 13 CREATININE 0.93 Recent Labs Component Name 12/26/22 0132 MAGNESIUM 1.5* Recent Labs Component Name 12/26/22 0132 PHOS 2.7* Recent Labs Component Name 02/06/23 1330 PTT 35.4 PT 25.7* INR 2.5* No results found for requested labs within last 120 days. Recent Labs Result Component Current Result Alkaline Phosphatase 69 (12/24/2022) ALT 17 (12/24/2022) Anion Gap 8 (02/06/2023) AST 13 (12/24/2022) eGFR by CKD-EPI 68 (L) (02/06/2023) ANESTHESIA PLAN ASA Score: 3 NPO Status: No solids since midnight and No liquids within 2 hours Anesthesia Plan: general ETT (glidescope) Planned Induction: intravenous Planned Postop Destination: PACU Anesthetic plan was discussed with: patient Anesthetic Plan discussion was: Consented The patient's procedural Anesthetic Plan was discussed with the HOT SHOT and anesthesiologist. BMI, Height, Weight Tobacco History Estimated body mass index is 51.96 kg/m?? as calculated from the following: Height as of this encounter: 1.549 m (5' 1 ). Weight as of this encounter: 124.7 kg (275 lb). Social History Tobacco Use Smoking Status Former ??? Packs/day: .5 ??? Types: Cigarettes ??? Quit date: 12/05/1977 ??? Years since quittin.2 Smokeless Tobacco Never Alcohol History Drug History Social History Substance and Sexual Activity Alcohol Use No Social History Substance and Sexual Activity Drug Use No Outpatient Medications: Inpatient Medications: Outpatient Medications Marked as Taking for the 02/16/23 encounter (Hospital Encounter) Medication Sig Last Dose ??? amitriptyline at bedtime 02/15/2023 ??? ascorbic acid Take 1 (one) tablet by mouth 2 times daily 02/15/2023 ??? exemestane Take 1 (one) tablet by mouth DAILY 02/15/2023 ??? HumaLOG KwikPen 22 (twenty two) Units 3 times daily before meals 02/15/2023 ??? hydroCHLOROthiazide Take 1 (one) capsule by mouth once daily 02/15/2023 ??? HYDROcodone-acetaminophen Take 1 (one) tablet by mouth every 6 hours as needed for Pain 02/15/2023 ??? B-D ULTRAFINE III SHORT PEN 4 times daily 02/15/2023 ??? ONETOUCH DELICA PLUS 33G EXTRA FINE LANCET USE FOUR TIMES DAILY 02/15/2023 ??? Lantus SoloStar ADMINISTER 50 UNITS UNDER THE SKIN EVERY MORNING 02/15/2023 ??? methenamine hippurate TAKE 1 TABLET BY MOUTH TWICE DAILY 02/15/2023 ??? OneTouch Ultra 4 times daily 02/15/2023 ??? oxyBUTYnin CR 24hr Take 1 (one) tablet by mouth once daily 02/15/2023 ??? rOPINIRole TAKE 1 TABLET BY MOUTH EVERY NIGHT 02/15/2023 ??? Xarelto 02/10/2023 Current Facility-Administered Medications Medication Dose Last Admin ??? 0.9% NaCl 3 mL And ??? 0.9% NaCl 1-10 mL ??? acetaminophen 1,000 mg 1,000 mg at 02/16/23 1158 ??? lactated ringers New Bag at 02/16/23 1155 ??? lidocaine 0.2 mL ??? vancomycin 1,500 mg 1,500 mg at 02/16/23 4529 Allergies: Allergies Allergen Reactions ??? Latex Rash [...] Reslizumab Unknown ??? Skin Adhesives Skin Reactions Relevant Problems Anesthesia (+) LUL (obstructive sleep apnea) Cardiovascular (+) Essential hypertension Neuro/Psych (+) Acute intractable headache, unspecified headache type (+) CVA (cerebral vascular accident) ([facility]) (+) Intractable chronic post-traumatic headache Pulmonary (+) LUL (obstructive sleep apnea) Endocrine (+) Type 2 diabetes mellitus without complication ([facility]) Problem List: Patient Active Problem List Diagnosis Date Noted ??? Chronic back pain 08/16/2021 Priority: High ??? CVA (cerebral vascular accident) ([facility]) 01/24/2018 Priority: High ??? Anxiety and depression 11/12/2017 Priority: High ??? Chronic anticoagulation 11/09/2017 Priority: High ??? Essential hypertension 10/23/2017 Priority: High Last Assessment & Plan: On lisinopril ??? Type 2 diabetes mellitus without complication ([facility]) 08/22/2017 Priority: High Last Assessment & Plan: Hold snow. Start on SSI and accucheks Last Assessment & Plan: Hold snow. Start on SSI and accucheks Last Assessment & Plan: Chronic. Controlled. -continue home insulin regimen of lantus 50 units q am -lispro 20 units with breakfast and lunch. 22 units with dinner. ??? LUL (obstructive sleep apnea) 08/01/2017 Priority: High Last Assessment & Plan: Chronic, on CPAP at home - Continue home CPAP ??? Neuropathy 07/05/2017 Priority: High ??? Intractable chronic post-traumatic headache 12/25/2022 Priority: Not Prioritized ??? Right hand weakness 12/25/2022 Priority: Not Prioritized ??? Acute intractable headache, unspecified headache type 12/20/2022 Priority: Not Prioritized ??? Tachycardia 11/12/2021 Priority: Not Prioritized ??? Multiple subsegmental pulmonary emboli without acute cor pulmonale (CMS/HCC) 11/12/2021 Priority: Not Prioritized ??? Wound infection complicating hardware (CMS/HCC) 11/12/2021 Priority: Not Prioritized ??? Preoperative examination 10/30/2021 Priority: Not Prioritized ??? Acute post-operative pain 10/30/2021 Priority: Not Prioritized ??? S/P insertion of spinal cord stimulator 09/16/2021 Priority: Not Prioritized Medical History: Past Medical History: Diagnosis Date ??? Breast cancer (CMS/HCC) ??? Chest pain ??? DVT (deep venous thrombosis) (CMS/HCC) ??? GERD (gastroesophageal reflux disease) ??? LUL (obstructive sleep apnea) w cpap ??? Other pulmonary embolism without acute cor pulmonale (CMS/HCC) ??? rls ??? 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 Patient is postmenopausal. Postmenopausal OB History No obstetric history on file. Covid Vaccine: Lab Results: Recent Labs Base Name 02/16/23 1213 [id number] 175* SPECIMENTYPE Cap Fingerstick Recent Labs Component Name 02/06/23 1331 WBC 8.9 RBC 5.05 HCT 45.5 HGB 14.6 PLTCOUNT 264 MCV 90.1 MCH 28.9 MCHC 32.1 MPV 10.0 Recent Labs Component Name 02/06/23 1331 BLOODUA 1+* WBCUA 0-5 NITRITEUA Negative PROTEINUA Negative Recent Labs Component Name 02/06/23 1331 SODIUM 136 POTASSIUM 3.7 CALCIUM 9.5 CHLORIDE 103 CO2 25 GLUCOSE 258* BUN 13 CREATININE 0.93 Recent Labs Component Name 12/26/22 0132 MAGNESIUM 1.5* Recent Labs Component Name 12/26/22 0132 PHOS 2.7* Recent Labs Component Name 02/06/23 1330 PTT 35.4 PT 25.7* INR 2.5* No results found for requested labs within last 120 days. Recent Labs Result Component Current Result Alkaline Phosphatase 69 (12/24/2022) ALT 17 (12/24/2022) Anion Gap 8 (02/06/2023) AST 13 (12/24/2022) eGFR by CKD-EPI 68 (L) (02/06/2023) documented in this encounter Procedure Notes * Cordelia Barrientos APRN-HOT SHOT - 02/16/2023 1:32 PM CDTAssociated Order(s): ETT Placement Endotracheal Tube Placement: Patient Location: OR. Intubation Event Date/Time: 02/16/2023 1:21 PM Procedure: intubation ([id number]). Procedure Section: Sedation: under general anesthesia. Indications for Airway Management: anesthesia Induction: rapid sequence Patient Position: sniffing, ramp/troop pillow and supine Mask Ventilation: not [...] CO2 detector, bilateral breath sounds, chest x-ray andCO2 monitor CXR Findings: ETT in proper place. Tube secured with: adhesive tape. Dentition unchanged? Yes Difficult Airway? No. Procedure Start Time: 02/16/2023 1:21 PM. Procedure End Time: 02/16/2023 1:22 PM. Procedure Total Time: 1 minutes. Staff Section Anesthesia Provider: Kellie Toscano Performed the procedure Provider #1: Cordelia Barrientos APRN-CRNA. documented in this encounter Miscellaneous Notes * Anesthesia Transfer of Care - Cordelia Barrientos APRN-CRNA - 02/16/2023 2:41 PM CDT ANESTHESIA TRANSFER OF CARE NOTE Today's Date: 02/16/2023 Date of : 1955 Patient: Karly Marques Procedure(s): PLACEMENT OF NEW BATTERY IN THE LEFT LUMBAR REGION WELL CONNECTION WITH HER PADDLE AND WIRE SYSTEM Surgeon(s): Primary: Maxi rGegg MD Preop Diagnosis: Pre-op Diagnois: * Diagnosis unknown [R69] Pre-op Meds (From admission, onward) Start Stop Status Route Frequency Ordered 02/16/23 1127 0.9% NaCl injection 1-10 mL See Hyperspace for full Linked Orders Report. -- Dispensed IK PRN 02/16/23 1127 02/16/23 1400 0.9% NaCl injection 3 mL See Hyperspace for full Linked Orders Report. -- Dispensed IK EVERY 8 HOURS 02/16/23 1127 02/16/23 1157 acetaminophen (Tylenol) tablet 1,000 mg -- Verified PO EVERY 4 HOURS PRN 02/16/23 1158 02/16/23 1331 dexAMETHasone (Decadron) injection -- Sent IV PRN 02/16/23 1337 02/16/23 1334 diphenhydrAMINE (Benadryl) injection -- Sent IV PRN 02/16/23 1337 02/16/23 1321 fentaNYL (PF) (Sublimaze) injection -- Sent IV PRN 02/16/23 1337 02/16/23 1432 fentaNYL (PF) (Sublimaze) injection 50 mcg -- Verified IV EVERY 3 MIN PRN 02/16/23 1432 02/16/23 1425 HYDROmorphone (Dilaudid) injection -- Sent IV PRN 02/16/23 1425 02/16/23 1432 HYDROmorphone (Dilaudid) injection 0.5 mg -- Verified IV EVERY 5 MIN PRN 02/16/23 1432 02/16/23 1445 insulin regular human (HumuLIN R; NovoLIN R) 100 UNIT/ML injection 0-6 Units 02/17/23 0244 Verified IV ONCE 02/16/23 1432 02/16/23 1145 lactated ringers infusion -- Verified IV PRE-OP CONTINUOUS 02/16/23 1136 02/16/23 1445 lactated ringers infusion -- Verified IV CONTINUOUS 02/16/23 1432 02/16/23 1321 lidocaine HCl (PF) (Xylocaine MPF) 2 % injection -- Sent IV PRN 02/16/23 1337 02/16/23 1134 lidocaine PF (Xylocaine MPF) 1 % injection 0.2 mL -- Verified INFILTRATION PRE-OP MULTIPLE 02/16/23 1136 02/16/23 1313 midazolam (Versed) injection -- Sent IV PRN 02/16/23 1337 02/16/23 1432 morphine injection 2 mg -- Verified IV EVERY 15 MIN PRN 02/16/23 1432 02/16/23 1432 naloxone (Narcan) injection 0.04 mg -- Verified IV POST-OP MULTIPLE 02/16/23 1432 02/16/23 1405 ondansetron (Zofran) injection -- Sent IV PRN 02/16/23 1405 02/16/23 1347 ondansetron (Zofran) injection 4 mg -- Verified IV ONCE PRN 02/16/23 1347 02/16/23 1336 phenylephrine 100 mcg/mL injection -- Sent IV PRN 02/16/23 1340 02/16/23 1321 propofol (Diprivan) injection -- Sent IV PRN 02/16/23 1337 02/16/23 1328 rocuronium (Zemuron) injection -- Sent IV PRN 02/16/23 1338 02/16/23 1321 succinylcholine (Anectine) injection -- Sent IV PRN 02/16/23 1338 02/16/23 1411 sugammadex (Bridion) injection -- Sent IV PRN 02/16/23 1411 02/16/23 1130 vancomycin (Vancocin) 1,500 mg in 530 mL IVPB 02/16/23 1329 Completed IV ONCE 02/16/23 1127 Post-op Diagnosis: * Diagnosis unknown [R69] . Allergies Allergen Reactions ??? Latex Rash ??? [...] Reslizumab Unknown ??? Skin Adhesives Skin Reactions Vitals: Patient Vitals for the past 3 hrs: BP Temp Pulse Resp SpO2 02/16/23 1149 143/89 98.3 ??F (36.8 ??C) 97 18 99 % Lines, Drains, and Airways Type Details Placement Removal Peripheral IV Date: 02/16/23; Time: 1200; Orientation: Anterior, Right; Location: Wrist; Placed By:Lucia LAWLER; Gauge: 20 Gauge; Tolerance: Well 02/16/23 1200 by Brenda Hou RN ETT Date: 02/16/23; Time: 1321; Placed By: Kellie Toscano; Vent: mask not attempted; Induction: Rapid Sequence; Blade Type: Video; Blade Size: 3; Laryngoscopy View: Grade 1 (full cords); Intubation Adjuncts: Stylet, Video Laryngoscope; Placement: Oral; Tube Type: Cuffed-inflated; Tube Size(mm): 7 MM; Depth of Insertion: 21 CM; Measured From: teeth; Attempts: 1; Cuff Infated: Air; Verified By: Direct visualization, Bilateral breath sounds, Chest X-ray, CO2 Monitor, CO2 Detector 02/16/23 1321 byCordelia Barrientos APRN-CRNA 02/16/23 1432 by Cordelia Barrientos APRN-CRNA Intraprocedure I/O Totals Intake lactated ringers infusion 800.00 mL Total Intake 800 mL Output Urine 0 mL Estimated Blood Loss 25 mL Total Output 25 mL Net Net Volume 775 mL Patient Transfer Location: PACU Transport Airway: spontaneous respirations and supplemental O2 Complications: None Handoff Given? Yes Checklist or Protocol - The pinzon handoff elements that must be included in the transfer of care checklist include: 1. Identification of patient. 2. Identification of responsible practitioner (PACU nurse or advanced practitioner). 3. Discussion of pertinent medical history. 4. Discussion of the surgical/procedure course (procedure, reason for surgery, procedure performed). 5. Intraoperative anesthetic management and issue/concerns. 6. Expectations/Plans for the early post-procedure period. 7. Opportunity for questions and acknowledgement of understanding of report from the receiving PACUteam. KALIE Rios documented in this encounter Plan of Treatment Not on file documented as of this encounter Procedures Procedure Name Priority Date/Time Associated Diagnosis Comments ENDOTRACHEAL TUBE NOTE Routine 02/16/2023 1:32 PM CDT documented in this encounter Results * ETT LINE PERFORMABLE (02/16/2023 1:32 PM CDT) Narrative Cordelia Barrientos APRN-CRNA - 02/16/2023 1:32 PM CDT Cordelia Barrientos APRN-CRNA ? 02/16/2023 ??1:34 PM Endotracheal Tube Placement: ? Patient Location: OR. Intubation Event Date/Time: ??02/16/2023 1:21 PM Procedure: intubation ([id number]). Procedure Section: ?? Sedation: under general anesthesia. [...] Dillon Zamora DO GENERAL ANESTHESIA O RDERABLES documented in this encounter Visit Diagnoses Not on filedocumented in this encounter Administered Medications Inactive Administered Medications - up to 3 most recent administrations Medication Order MAR Action Action Date Dose Rate Site dexAMETHasone (Decadron) injection Intravenous, PRN, Starting on Valeri 02/16/23 at 1331, Until Valeri 02/16/23 at 1441, Anesthesia Intra-op $ Given 02/16/2023 1:31 PM CDT 8 mg diphenhydrAMINE (Benadryl) injection Intravenous, PRN, Starting on Valeri 02/16/23 at 1334, Until Valeri 02/16/23 at 1441, Anesthesia Intra-op $ Given 02/16/2023 1:34 PM CDT 25 mg fentaNYL (PF) (Sublimaze) injection Intravenous, PRN, Starting on Valeri 02/16/23 at 1321, Until Valeri 02/16/23 at 1441, Anesthesia Intra-op $ Given 02/16/2023 1:44 PM CDT 50 mcg $ Given 02/16/2023 1:21 PM CDT 50 mcg HYDROmorphone (Dilaudid) injection Intravenous, PRN, Starting on Valeri 02/16/23 at 1425, Until Valeri 02/16/23 at 1441, Anesthesia Intra-op $ Given 02/16/2023 2:25 PM CDT 0.25 mg lidocaine HCl (PF) (Xylocaine MPF) 2 % injection Intravenous, PRN, Starting on Valeri 02/16/23 at 1321, Until Valeri 02/16/23 at 1441, Anesthesia Intra-op $ Given 02/16/2023 1:21 PM CDT 100 mg midazolam (Versed) injection Intravenous, PRN, Starting on Valeri 02/16/23 at 1313, Until Valeri 02/16/23 at 1441, Anesthesia Intra-op $ Given 02/16/2023 1:13 PM CDT 2 mg ondansetron (Zofran) injection Intravenous, PRN, Starting on Valeri 02/16/23 at 1405, Until Valeri 02/16/23 at 1441, Anesthesia Intra-op $ Given 02/16/2023 2:05 PM CDT 4 mg phenylephrine 100 mcg/mL injection Intravenous, PRN, Starting on Valeri 02/16/23 at 1336, Until Valeri 02/16/23 at 1441, Anesthesia Intra-op $ Given 02/16/2023 2:03 PM CDT 100 mcg $ Given 02/16/2023 1:36 PM CDT 100 mcg propofol (Diprivan) injection Intravenous, PRN, Starting on Valeri 02/16/23 at 1321, Until Valeri 02/16/23 at 1441, Anesthesia Intra-op $ Given 02/16/2023 1:21 PM CDT 200 mg rocuronium (Zemuron) injection Intravenous, PRN, Starting on Valeri 02/16/23 at 1328, Until Valeri 02/16/23 at 1441, Anesthesia Intra-op $ Given 02/16/2023 1:28 PM CDT 50 mg succinylcholine (Anectine) injection Intravenous, PRN, Starting on Valeri 02/16/23 at 1321, Until Valeri 02/16/23 at 1441, Anesthesia Intra-op $ Given 02/16/2023 1:21 PM CDT 100 mg sugammadex (Bridion) injection Intravenous, PRN, Starting on Valeri 02/16/23 at 1411, Until Valeri 02/16/23 at 1441, Anesthesia Intra-op $ Given 02/16/2023 2:11 PM CDT 250 mg documented in this encounter Care Teams Jumpbasting Facing Baster Relationship Specialty Start Date End Date Justen Gale MD PCP - General 07/05/21 documented as of this encounter
--- OUTSIDE RECORDS SUMMARY | 2024-04-26 02:32 | XMS_ITS | Encounter Summary ---
Author Organization [facility] Address [address] [place] [address] Care Team Providers Care Business Objects Report Developer Name Role Phone Justen Gale MD Primary Care Provider [phone] Reason for Visit * Reason Onset Date Comments Surgery Scheduling 01/18/2023 Encounter Details Date Type Department Care Team (Late st Contact Info) Description 01/18/2023 Telephone [facility] - Neurosurgery [address] [place] [address], [place] [address] Angeline Avila, sebd teacher Scheduling Social History Tobacco Use Types Packs/Day [...] and heating? Not hard at all 12/23/2022 [facility] [place] [facility] Occupat ional Health - Occupational Stress [...] in a long term (including now)? No 12/23/2022 Sex and Gender [...] Telephone Encounter - Angeline Avila RN - 01/18/2023 12:06 PM CDT Called patient to schedule surgery for 02/16 arrival time 0530. Left voice mail to return call documented in this encounter Plan of Treatment Not on file documented as of this encounter Visit Diagnoses Not on filedocumented in this encounter Care Teams Business Objects Report Developer Relationship Specialty Start Date End Date Justen Gale MD PCP - General 07/05/21 documented as of this encounter
--- OUTSIDE RECORDS SUMMARY | 2024-04-26 02:32 | XMS_ITS | Encounter Summary ---
Author Organization [facility] Address [address] [place] [address] Care Team Providers Care Chip Machine Operator Name Role Phone Justen Gale MD Primary Care Provider [phone] Reason for Referral * Radiology Services (Routine) - Closed Specialty Diagnoses / Procedures Referred By Contac t Referred To Contact CT Scan Diagnoses Acute hematogenous osteomyelitis, unspecified site (HCC) Procedures CT LUMBAR SPINE W CONTRAST Jazmyne Torres MD [address] [place] [address] [facility] [address] [place] [address] Referral ID Status Reason Start Date Expiration Date Visits Re quested Visits Authorized [id number] Closed 12/06/2021 12/06/2022 1 1 Reason for Visit * Reason Onset Date Comments Follow-up 12/06/2021 Encounter Details Date Type Department Care Team (Late st Contact Info) Description 12/06/2021 Telephone [facility] [address] [facility], [facility] [place] [address] Jazmyne Torres MD [address] [place] [address] Follow-up Social History Tobacco Use Types Packs/Day [...] Telephone Encounter - Jazmyne Torres MD - 12/06/2021 4:05 PM CDT Discussed with her neurosurgery, her spinal cord stimulator is not compatible with MRI so I will order CT with contrast. ESR sent today. I called [facility] to take a look at her PICC line as well. documented in this encounter Plan of Treatment Not on file documented as of this encounter Results * CT LUMBAR SPINE [...] DATE/TIME OF EXAM: ??12/16/2021 12:24 PM, LOCATION ??[facility] INDICATION: M86.00: Acute hematogenous osteomyelitis, unspecified [...] CONTRAST, DATE/TIME OF EXAM: :24 PM, LOCATION [facility] INDICATION: M86.00: Acute hematogenous osteomyelitis, unspecified [...] Diagnoses Diagnosis Acute hematogenous osteomyelitis, unspecified site (HCC)- Primary Acute hematogenous osteomyelitis, unspecified site (HCC) documented in this encounter Care Teams Chip Machine Operator Relationship Specialty Start Date End Date Justen Gale MD PCP - General 07/05/21 documented as of this encounter
--- OUTSIDE RECORDS SUMMARY | 2024-04-26 02:32 | XMS_ITS | Encounter Summary ---
Author Organization [facility] Address [address] [facility] [place] [address] Care Team Providers Care Turkey Roll Maker Name Role Phone Justen Gale MD Primary Care Provider [phone] Reason for Referral * Evaluate (Routine) - Closed Specialty Diagnoses / Procedures Referred By Elyssa benavides Referred To Contact ENT-Otolaryngology Diagnoses Throat pain Jazmyne Morel MD [address] [place] [address] [facility] [address] [place] [address] Referral ID Status Reason Start Date Expiration Date V isits Requested Visits Authorized [id number] Closed Specialty Services Required 12/06/2021 12/06/2022 1 1 Reason for Visit * Reason Comments Hospital Follow-up Encounter Details Date Type Department Care Team (Late st Contact Info) Description 12/06/2021 12:30 PM CDT Office Visit [address] [address] Jazmyne Morel MD [address] [place] [address] Acute hematogenous osteomyelitis, unspecified site (HCC) (Primary Dx); Throat pain Social History Tobacco Use Types Packs/Day Years [...] Sign Reading Time Taken Comments Blood Pressure 143/74 12/06/2021 12:04 PM CDT Pulse 93 12/06/2021 12:04 PM CDT Temperature 36.5 ??C (97.7 ??F) 12/06/2021 1 2:04 PM CDT Respiratory Rate - - Oxygen Saturation 97% 12/06/2021 12: 04 PM CDT Inhaled Oxygen Concentration - - Weight 130.5 kg (287 lb 9.6 oz) 022 12:04 PM CDT Height 154.9 cm (5' 1 ) 12/06/2021 12:0 4 PM CDT Body Mass Index 54.34 12/06/2021 12:04 PM CDT documented in this encounter Functional [...] as of this encounter Progress Notes * Jazmyne Morel MD - 12/06/2021 12:38 PM CDT [facility] Infectious Diseases Progress Note Reason for IDf/u: Infected??battery site of spinal stimulation system Brief History and Hospital Course: Karly Marques??is a??66 year old?female??with??PMH of??T2DM,??HTN, CHF, 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 ?? The patient received a dose of IV vancomycin pranay-op??of surgery of placement of??spinal stimulation system??on 09/16/2021. She then developed rash??to her back??and ulcers in mouth around 09/19 and had ED visits x 2 for this, supportive care was given. A couple of weeks later she noted wound drainage in the??battery site??with increase in pain. She presented to [facility] ED??again??on 10/06,??note purulent drainage from incision ,??labs notable for mild leukocytosis WBC of 11.5,?BCx was sent (later no growth), then was given clindamycin for 14 days (she reported she didn't take it). The course was complicated by UTI and Strep throat , for which she received a few fays of Bactrim, then nitrofurantoin??but developed rash again. The wound??at battery site was never healed with??intermittent??drainage, with associated??pain, for which she had multiple ED visits. On 10/29, she spiked fever 100.5. She went to OSH ED. Labs notable for??WBC 22. BCx was sent.??CT??A/P w contrast showed increase in??fat stranding surrounding the battery??pack, mild fat stranding tracks along the spinal stimulator lead, as well as a??5.9 x 2.5 x 3.9 cm fluid collection at the site of the thoracic laminectomies surrounding the distal aspect of the spinal stimulator leads with equivocal rim enhancement.??IV vancomycin and??aztreonam??were given. She was then transferred to [facility] for??neurosurgery evaluation and management. ?? Upon arrival to [facility], Tmax 99.1, VSS, leukocytosis WBC of 20.5 (neut 93%). BCx was sent. UA WBC 6-10, UCx no growth. Started on IV vancomycin and meropenem. ?? On 10/30, she was taken to the OR with neurosurgery for removal of battery in the??right??lower lumbar region??and irrigation of the wound,??purulent collection??noted, cultures grew E.coli on 10/30 SUBJECTIVE & INTERVAL HISTORY: Patient seen and examined. She has more pain of the back compared to before stimulator placement. She has chronic throat pain in right side since surgery back in September now worsening. Prefer to see ENT. She thinks she has incontinence on her treatment. No fever/dysuria. Said PICC line was not working from yesterday Current Abx:ertapenem Prior Abx at [facility] PRN Medications OBJECTIVE: Vital Signs: BP 143/74 Pulse 93 Temp 97.7 ??F (36.5 ??C) (Temporal) Ht 5' 1 (1.549 m) Wt 287 lb 9.6 oz (130.5 kg) SpO2 97% @TMAX(24)@ I/O: @IOBRIEF@ Physical Exam: General: Alert, cooperative, no distress, obese Head: Normocephalic, atraumatic Eyes: Conjunctiva pale, corneas clear, anicteric sclerae Nose: No deformity Mouth and Throat: Oropharynx clear, no thrush Neck: Supple, symmetrical, no JVD Chest wall: No tenderness or deformity Lungs: Clear to auscultation bilaterally Heart: RRR, S1, S2 normal, no murmur, click, rub or gallop Abdomen: Soft, non-distended, non-tender, +BS Back: tenderness in right side area. Lines: LABS CBC: Recent Labs Component Name 12/02/21 1231 11/16/21 1126 11/13/21 0107 04/20/17 0404 01/27/12 1157 WBC 9.7 8.1 9.0 - 8.8 RBC 4.42 4.09 3.87 - 4.71 HGB 12.7 11.8* 11.3* - 13.2 HCT 39.6 37.7 35.4 - 41.6 MCV 89.6 92.2 91.5 - 88.3 PLT - - - - 330 - = values in this interval not displayed. BMP: Recent Labs Component Name 12/02/21 1231 11/16/21 1126 11/13/21 0658 11/11/218 04/20/17 0404 01/27/12 1157 NA 138 136 138 138 - 139 K - - - - - 3.7 CL 103 100 102 102 - 106 CO2 25 24 28 23 - 24 BUN 16 13 13 15 - 17 CREATININE 0.64 0.70 0.66 0.79 - 0.6 GLU - - - - - 143* ALB 3.1* 3.0* - 3.1* - 3.2* PROT 8.3 7.9 - 8.8* - 7.4 7.8 - = values in this interval not displayed. estimated creatinine clearance is 111.9 mL/min (by C-G formula based on SCr of 0.64 mg/dL). Recent Labs Component Name 12/02/21 1231 11/16/21 1126 11/11/212237 ALT 15 15 17 AST 17 16 13 ALKPHOS 84 77 91 TBILI 0.6 0.4 0.4 MICROBIOLOGY: OR 10/30 culture Susceptibility Escherichia coli (1) Escherichia coli (2) TERRANCE TERRANCE Amikacin <=2 ug/mL Susceptible <=2 ug/mL Susceptible Ampicillin 8 ug/mL Susceptible 16 ug/mL Intermediate Ampicillin-sulbactam 4 ug/mL Susceptible 4 ug/mL Susceptible Cefazolin <=4 ug/mL See Comment* <=4 ug/mL See Comment* Cefepime <=1 ug/mL Susceptible <=1 ug/mL Susceptible Ceftriaxone <=1 ug/mL Susceptible <=1 ug/mL Susceptible Ciprofloxacin <=0.25 ug/mL Susceptible <=0.25 ug/mL Susceptible Extended-Spectrum Beta-Lactamase NEG ug/mL Neg NEG ug/mL Neg Gentamicin <=1 ug/mL Susceptible <=1 ug/mL Susceptible Meropenem <=0.25 ug/mL Susceptible <=0.25 ug/mL Susceptible Piperacillin-tazobactam <=4 ug/mL Susceptible <=4 ug/mL Susceptible Tobramycin <=1 ug/mL Susceptible <=1 ug/mL Susceptible Trimethoprim-sulfamethoxazole >=320 ug/mL Resistant >=320 ug/mL Resistant HISTOPATHOLOGY: None at this admission IMAGING & PROCEDURE: Pertinent images independently reviewed; report in chart. ASSESSMENT & RECOMMENDATIONS: Infected??battery site of spinal stimulation system Extended to complete 6 weeks on 12/11 Unclear etiology of worsening pain ,CRP is coming down, will check ESR today Will call [facility] for PICC line check Chronic throat pain Will refer to ENT UTI Not sure if her incontinence related to UTI while she is on abx with ertapenem. U/A with reflex Ucx >35 minutes spent on the care of this patient. > 50% was spent in counseling and coordinationof care that included the patient and the primay team. Jazmyne Morel MD MPH Infectious Diseases documented in this encounter Miscellaneous Notes * Addendum Note - Jazmyne Morel MD - 12/06/2021 1:38 PM CDT Addended by: JAZMYNE MOREL on: 12/06/2021 01:38 PM Modules accepted: Orders documented in this encounter Plan of Treatment Scheduled Orders Name Type Priority Associated Diagnoses Orde r Schedule URINALYSIS W/MICROSCOPIC REFLEX TO CULTURE Lab Routine Acute hematogenous osteomyelitis, unspecified site (HCC) Ordered: 12/06/2021 Scheduled Referrals Name Type Priority Associated Diagnoses Order Schedule Ref to ENT Otolaryngology - [facility] Outpatient Referral Routine Throat pain 1 Occurrences starting 12/06/2021 until 12/06/2022 documented as of this encounter Procedures Procedure Name Priority Date/Time Associated Diagnosis Comments ERYTHROCYTE SEDIMENTATION RATE Routine 12/06/2021 1:44 PM CDT Acute hematogenous osteomyelitis, unspecified site (HCC) URINALYSIS W/MICROSCOPIC REFLEX TO CULTURE Routine 12/06/2021 1:29 PM CDT Acute hematogenous osteomyelitis, unspecified site (HCC) documented in this encounter Results * (ABNORMAL) ERYTHROCYTE SEDIMENTATION RATE (12/06/2021 1:44 PM CDT) [facility] Erythrocyte Sedimentation Rate Adolfo 59(H) 0 - 30 MM/HR 12/06/2021 6:57 PM CDT [facility] Blood BLOOD SPECIMEN / Unknown Lab Venipuncture / Unknown 12/06/2021 1:44 PM CDT 12/06/2021 6:57 PM CDT Nongnokirsten Morel MD LAB - HEM ATOLOGY ORDERABLES Performing Organization Address City/State/[facility] Co de Phone Number [address] [address], [facility] [phone] * (ABNORMAL) URINALYSIS W/MICROSCOPIC REFLEX TO CULTURE (12/06/2021 1:29 PM CDT) Color UA Yellow Straw, Yellow 12/06/2021 3:05 PM CDT [facility] Clarity UA Clear Clear 12/06/2021 3:05 PM CDT [facility] Specific [place] UA 1.016 1.005 - 1.030 12/06/2021 3:05 PM CDT [facility] pH UA 5.0 5.0 - 8.0 pH 12/06/2021 3:05 PM CDT [facility] Protein UA Negative Negative 12/06/2021 3:05 PM CDT [facility] Glucose UA 1+(A) Negative 12/06/2021 3:05 PM [facility] Ketone UA Negative Negative 12/06/2021 3:05 PM [facility] Bilirubin UA Negative Negative 12/06/2021 3:05 PM [facility] Blood UA 1+(A) Negative 12/06/2021 3:05 PM [facility] Nitrite UA Negative Negative 12/06/2021 3:05 PM [facility] Leukocyte Esterase Negative Negative 12/06/2021 3:05 PM [facility] Urobilinogen UA Negative Negative mg/dL 12/06/2021 3:05 PM [facility] RBC UA 0-2 None Seen, 0-2, 3-5 /HPF 12/06/2021 3:05 PM [facility] WBC UA 0-5 None Seen, 0-5 /HPF 12/06/2021 3:05 PM [facility] Squamous Epithelial Cells UA None Seen None Seen, 0-2, 3-5 /HPF 12/06/2021 3:05 PM [facility] Mucus UA 1+ /LPF 12/06/2021 3:05 PM [facility] Urine URINE SPECIMEN OBTAINED BY CLEAN CATCH PROCEDURE / Unknown Collection / Unknown 12/06/2021 1:29 PM CDT 12/06/2021 2:47 PM CDT Narrative [facility] - 12/06/2021 3:05 PM [facility] Culture Not Indicated [place] Melissa DURÁN LAB - URI NALYSIS ORDERABLES Performing Organization Address [facility]/State/[facility] de Phone Number [facility] [address] [place] [address], [facility] [phone] documented in this encounter Visit Diagnoses Diagnosis Acute hematogenous osteomyelitis, unspecified site (HCC)- Primary Throat pain documented in this encounter Care Teams Turkey Roll Maker Relationship Specialty Start Date End Date Justen Gale MD PCP - General 07/05/21 documented as of this encounter
--- OUTSIDE RECORDS SUMMARY | 2024-04-26 02:32 | XMS_ITS | Encounter Summary ---
Author Organization [facility] Address [address] [facility] [address] [place] [address] Care Team Providers Care Sales Agent Protective Service Name Role Phone Justen Gale MD Primary Care Provider [phone] Reason for Visit * Reason Onset Date Comments General 01/05/2023 Encounter Details Date Type Department Care Team (Late st Contact Info) Description 01/05/2023 Telephone [facility] - Neurosurgery [address] [facility], [place] [address] Angeline Avila, RN General Social [...] and heating? Not hard at all 12/23/2022 [facility] Occupat ional Health - Occupational Stress [...] Telephone Encounter - Angeline Avila RN - 01/05/2023 1:46 PM CDT Returned patients call per voice mail.Mail box was full. documented in this encounter Plan of Treatment Not on file documented as of this encounter Visit Diagnoses Not on filedocumented in this encounter Care Teams Sales Agent Protective Service Relationship Specialty Start Date End Date Justen Gale MD PCP - General 07/05/21 documented as of this encounter
--- OUTSIDE RECORDS SUMMARY | 2024-04-26 02:33 | XMS_ITS | Encounter Summary ---
Author Organization [facility] Address [address] [place] [address] Care Team Providers Care Replenishment Associate Name Role Phone Justen Gale MD Primary Care Provider [phone] Reason for Visit * Reason Comments Rash POST-OP PROBLEM Pt BIBEMS from home after noticing a rash that is spreading around her incision site from having an implant placed in her spine last week. Pt says she then tried to get up out of bed today and had a sudden 10/10 pain that felt like her incision had popped open. Pt says the pain is nothing like her post op pain and the rash is getting worse. Pt is on Bactrim for a UTI but says the rash appeared first Encounter Details Date Type Department Care Team (Late st Contact Info) Description 09/23/2021 8:59 PM CDT - 09/24/2021 2:01 AM CDT Emergency [facility] EMERGENCY DEPARTMENT [address] [place] [phone] Post-op pain; Rash and other nonspecific skin eruption Discharge Disposition: Home or Self Care Social History Tobacco Use Types Packs/Day Years Used Date Smoking Tobacco: Former Cigarettes Q uit: 12/05/1977 Smokeless Tobacco: Never Alcohol Use Standard Drinks/Week Comments No 0 (1 standard drink = 0.6 oz pur e alcohol) Sex and Gender Information Value Date Recorded Sex Assigned at Not on file Gender Identity Not on file Sexual Orientation Not on file documented as of this encounter Last Filed Vital Signs Vital Sign Reading Time Taken Comments Blood Pressure 165/91 09/23/2021 10:29 PM CDT Pulse 75 09/23/2021 10:54 PM CDT Temperature 36.3 ??C (97.3 ??F) 09/23/2021 6:58 PM CD T Respiratory Rate 18 09/23/2021 6:58 PM CDT Oxygen Saturation 95% 09/23/2021 10:29 PM CDT Inhaled Oxygen Concentration - - Weight 129.3 kg (285 lb) 09/23/2021 6:58 PM CDT Height 154.9 cm (5' 1 ) 09/23/2021 6:58 PM CDT Body Mass Index 53.85 09/23/2021 6:58 PM CDT documented in this encounter Discharge Instructions * Attachments The following attachments cannot be sent through Care Everywhere. * Contact Dermatitis (Nigerien) documented in this encounter Medications at Time of Discharge Medication Sig Dispensed Refills Start Date End Date exemestane (AROMASIN) 25 MG tablet Take 1 (one) tablet by mouth DAILY 04/20/2017 Lancets (ONETOUCH DELICA PLUS 33G EXTRA FINE LANCET) USE FOUR TIMES DAILY 03/10/2021 ONETOUCH ULTRA test strip 4 times daily 02/01/2021 rOPINIRole (REQUIP) 5 MG tablet TAKE 1 TABLET BY MOUTH EVERY NIGHT 06/09/2021 amitriptyline (ELAVIL) 25 MG tabletIndications:fo r restless legs Take 1 (one) tablet by mouth at bedtime Reasons: for restless legs 06/05/2023 B-D ULTRAFINE III SHORT PEN 31G X 8 MM needle USE 6 TIMES DAILY DIRECTED 06/24/2021 11/24/2021 enoxaparin (LOVENOX) 40 MG/0.4ML injection Inject 40 mg subcutaneously every 12 hours 08/19/2021 11/16/2021 HUMALOG KWIKPEN 100 UNIT/ML pen ADMINISTER 22 UNITS BEFORE EACH MEAL. MAX DAILY DOSE OF 120 UNITS 03/21/2021 11/17/19 HYDROcodone-acetamin ophen (NORCO) 7.5-325 MG tablet Take 1 tablet by mouth every 6 hours as needed for Pain 11/16/2021 insulin pen needle (B-D ULTRAFINE III SHORT PEN) 31G X 8 MM needle USE 6 TIMES DAILY DIRECTED 06/23/2021 11/16/2021 LANTUS SOLOSTAR pen ADMINISTER 50 UNITS UNDER THE SKIN EVERY MORNING 03/16/2021 11/16/2021 naloxone HCl (NARCAN) 4 MG/0.1ML nasal spray as needed 05/13/2021 04/20/2023 OneTouch Delica Lancets 33G MISC Use 4 times daily 03/09/20212021 oxybutynin (DITROPAN) 5 MG tablet Take 5 mg by mouth TID. 04/20/201710/23 pantoprazole EC (PROTONIX) 40 MG tablet Take 40 mg by mouth 2 times daily 09/14/2021 10/14/2021 rivaroxaban (XARELTO) 10 MG tablet Take 20 mg by mouth daily with dinner. 04/20/2017 11/24/2021 tiZANidine (ZANAFLEX) 4 MG tablet 09/16/2021 04/04/2022 tiZANidine (ZANAFLEX) 4 MG tablet Take 1 (one) tablet by mouth every 6 hours as needed for Muscle Spasms 60 tablet 09/16/2021 10/01/2021 documented as of this encounter Consult Notes * Remi Thakur MD - 09/23/2021 9:29 PM CDT Neurosurgery Spine Consult Note Name: Karly Marques : 1955 Date of Admission:09/23/2021 Date of Consult:09/23/2021 9:30 PM Chief Complaint (CC): Incisional pain and wound rash HISTORY OF PRESENT ILLNESS (HPI): Patient is a 66 year old female s/p SCS who noticed rash and itching to wound one week ago. Was counseled to come to ER if topical steroids did not work but did not present until today. Today a rash that is spreading around her incision site from having an implant placed in her spine last week. Pt says she then tried to get up out of bed today and had a sudden 10/10 pain that felt like her incision had popped open. -Bowel/bladder incontinence or retention: denies -Numbness/paresthesias to extremities: denies -Hand clumsiness/loss of fine motor skills: denies -Balance problems: denies - Other injuries include: none Past Medical History: Diagnosis Date ??? Breast [...] ??? Knee Arthroscopy bilateral ??? Mastectomy ??? Thoracic Spine Laminectomy Right 09/16/2021 Right; [...] ??? Levofloxacin Urticaria and Skin Reactions ??? Lisinopril Swelling ??? Ketorolac Itching ??? Metoclopramide Other Twitching ??? Oxycodone Nausea and/or Vomiting ??? Pregabalin Other ??? Ceftriaxone Sodium In Dextrose Shortness of Breath ??? Piperacillin-Tazobactam In D5w Rash ??? Reslizumab Unknown ??? Skin Adhesives Skin Reactions Current Medications amitriptyline (ELAVIL) 25 MG tablet at bedtime B-D ULTRAFINE III SHORT PEN 31G X 8 MM needle USE 6 TIMES DAILY DIRECTED enoxaparin (LOVENOX) 40 MG/0.4ML injection Inject 40 mg subcutaneously every 12 hours exemestane (AROMASIN) 25 MG tablet Take 25 mg by mouth DAILY HUMALOG KWIKPEN 100 UNIT/ML pen ADMINISTER 22 UNITS BEFORE EACH MEAL. MAX DAILY DOSE OF 120 UNITS HYDROcodone-acetaminophen (NORCO) 7.5-325 MG tablet Take 1 tablet by mouth every 6 hours as needed for Pain insulin pen needle (B-D ULTRAFINE III SHORT PEN) 31G X 8 MM needle USE 6 TIMES DAILY DIRECTED Lancets (ONETOUCH DELICA PLUS 33G EXTRA FINE LANCET) USE FOUR TIMES DAILY LANTUS SOLOSTAR pen ADMINISTER 50 UNITS UNDER THE SKIN EVERY MORNING naloxone HCl (NARCAN) 4 MG/0.1ML nasal spray CALL 911. SPR CONTENTS OF ONE SPRAYER (0.1ML) INTO ONENOSTRIL. REPEAT IN 2-3 MIN IF SYMPTOMS OF OPIOID EMERGENCY PERSIST, ALTERNATE NOSTRILS OneTouch Delica Lancets 33G MISC Use 4 times daily ONETOUCH ULTRA test strip 4 times daily oxybutynin (DITROPAN) 5 MG tablet Take 5 mg by mouth TID. pantoprazole EC (PROTONIX) 40 MG tablet Take 40 mg by mouth 2 times daily rivaroxaban (XARELTO) 10 MG tablet Take 20 mg by mouth daily with dinner. rOPINIRole (REQUIP) 5 MG tablet TAKE 1 TABLET BY MOUTH EVERY NIGHT tiZANidine (ZANAFLEX) 4 MG tablet Take 1 (one) tablet by mouth every 6 hours as needed for Muscle Spasms No current facility-administered medications for this encounter. Current Outpatient Medications Medication ??? amitriptyline (ELAVIL) 25 MG tablet ??? B-D ULTRAFINE III SHORT PEN 31G X 8 MM needle ??? enoxaparin (LOVENOX) 40 MG/0.4ML injection ??? exemestane (AROMASIN) 25 MG tablet ??? HUMALOG KWIKPEN 100 UNIT/ML pen ??? HYDROcodone-acetaminophen (NORCO) 7.5-325 MG tablet ??? insulin pen needle (B-D ULTRAFINE III SHORT PEN) 31G X 8 MM needle ??? Lancets (ONETOUCH DELICA PLUS 33G EXTRA FINE LANCET) ??? LANTUS SOLOSTAR pen ??? naloxone HCl (NARCAN) 4 MG/0.1ML nasal spray ??? OneTouch Delica Lancets 33G MISC ??? ONETOUCH ULTRA test strip ??? oxybutynin (DITROPAN) 5 MG tablet ??? pantoprazole EC (PROTONIX) 40 MG tablet ??? rivaroxaban (XARELTO) 10 MG tablet ??? rOPINIRole (REQUIP) 5 MG tablet ??? tiZANidine (ZANAFLEX) 4 MG tablet Social History Tobacco Use ??? Smoking status: Former Smoker Packs/day: 0.50 Quit date: 12/05/1977 Years since quittin.8 ??? Smokeless tobacco: Never Used Substance Use Topics ??? Alcohol use: No Family History Problem Relation Name Age of Onset ??? Heart Disease Mother ??? Diabetes Mother ??? Cancer Father ??? Hemochromatosis Father ??? Cancer Sister ??? Heart Disease Brother REVIEW OF SYSTEMS Deferred PHYSICAL EXAM BP 148/81 Pulse 90 Temp 97.3 ??F (36.3 ??C) Resp 18 Ht 1.549 m (5' 1 ) Wt 129.3 kg (285 lb) SpO2 97% BMI 53.85 kg/m2 General: in pain Neuro: Mental status: GCS: 15. Alert, attentive, and oriented. Speech is clear and fluent. Cranial nerves: Grossly intact Motor: Muscle bulk and tone are normal. Strength is full bilaterally. Hip Flexor Quad Hamstring Tib Ant Gastroc EHL Right 5 5 5 5 5 5 Left 5 5 5 5 5 5 Reflexes: Plantar responses are flexor. No clonus. Biceps Patellar Right 2+ 2+ Left 2+ 2+ Sensory: Light touch and pinprick sense are intact in bilateral upper and lower extremities. Myofascial pain to palpation in muscle belly around incision. Coordination: There are no abnormal or extraneous movements. LABORATORY Recent Labs Component Name 09/23/212044 WBC 13.0* HGB 12.3 HCT 38.5 PLTCOUNT 319 Recent Labs Component Name 09/23/212044 NA 140 POTASSIUM 4.4 CO2 27 BUN 17 CREATININE 0.92 GLUCOSE 133* No results for input(s): INR in the last 26979 hours. RADIOLOGY No new radiology Assessment/Plan: 66 year old female s/p spinal cord stimulator with incisional pain and rash. Rash seems to be contact dermatitis from prineo dressing. Suspicion for wound infection at this stage is low, and patient is already on bactrim for UTI. Neurological exam is intact, patient is actually quite happy with theresults from the SCS and reports no pain in legs. Patient has 2 week post op follow up scheduled, please control pain and have patient follow up in clinic. Recommend pain control and antihistamine. Please student services counselor patient to return to ER with any neurological sequelae or if there is any leakage, dehiscence, purulence, or any other sign of infection from the wound. Case discussed with Dr. Gregg. Remi Thakur MD 09/23/2021 9:30 PM documented in this encounter ED Notes * Estrella Arthur RN - 09/24/2021 2:01 AM CDT Pt is awake and alert GCS 15. Breathing is regular and nonlabored. Skin is warm and dry. Gait is steady with no assistance. Proper discharge clothing. Discharge teaching successful as evidence by no further questions/concerns/needs. Pt ready for discharge. * Epi Solitario MD - 09/23/2021 11:10 PM CDT ASSUMED CARE NOTE Patient signed out to me by Dr. Reyes at 11:00 PM. Briefly, Karly Marques is a 66 year old female is being evaluated for post- operative concerns s/p spinal surgery one week ago. At this time the patient's condition is Stable. Pending NSGY recommendations. Plan is reassess and disposition per recommendations. Vitals: 09/23/21 1858 09/23/21 2229 09/23/21 2254 BP: 148/81 165/91 Pulse: 90 75 Resp: 18 Temp: 97.3 ??F (36.3 ??C) SpO2: 97% 95% Weight: 129.3 kg (285 lb) Height: 1.549 m (5' 1 ) Clinical Impression: 1. Post-op pain 2. Rash and other nonspecific skin eruption Progress: 1:30 PM - Pt reassessed at this time. Resting comfortably, vitals stable. 1:05 AM - Per NSGY, pt is medically clear for discharge. 1:10 AM: I have reviewed her diagnostic findings and she has had an opportunity to ask me any questions she has about care, diagnosis and discharge plan. Patient is comfortable with the discharge plan. She will follow up as directed and will return to the ER if her condition worsens or she developsother urgent concerns. Disposition: Discharge By signing my name below, I, Africa Wyman, attest that this documentation has been prepared under the direction and in the presence of Dr. Solitario. Signed: Kehinde Boyd. I, Dr. Solitario, personally performed the services described in this documentation. All medical record entries made by the kehinde were at my direction and in my presence. I have reviewed the chart and agree that the record reflects my personal performance and is accurate and complete. * Anthony Reyes MD - 09/23/2021 10:01 PM CDT ED Attending Note HPI: Ally Marques is a 66 year old female presenting to the ED with back pain. Patient has a spinal surgery one week ago for stimulator placement. She reports she was getting in bed today and turn thenhad sharp and immediate pain in her back. She reports pain is burning and severe. Pain does not radiate. No associated symptoms. No exacerbating or alleviating factors. The patient has no other complaints or modifying factors at this [...] ??? Knee Arthroscopy bilateral ??? Mastectomy ??? Thoracic Spine Laminectomy Right 09/16/2021 Right; [...] Packs/day: 0.50 Quit date: 12/05/1977 Years since quittin.8 ??? Smokeless tobacco: Never Used Vaping Use ??? Vaping Use: Never used Substance and Sexual Activity ??? Alcohol use: No ??? Drug use: No ??? Sexual activity: Not on file Other Topics Concern ??? Not on file Social History Narrative ??? Not on file Social Determinants of Health Financial Resource Strain: Not on file Food Insecurity: Not on file Transportation Needs: Not on file Physical Activity: Not on file Stress: Not on file Social Connections: Not on file Intimate Partner Violence: Not on file Housing Stability: Not on file Review of Systems: Review of Systems Constitutional: Negative for chills and fever. HENT: Negative for hearing loss. Eyes: Negative for blurred vision. Respiratory: Negative for shortness of breath. Cardiovascular: Negative for chest pain. Gastrointestinal: Negative for abdominal pain. Genitourinary: Negative for dysuria. Musculoskeletal: Positive for back pain. Skin: Negative for rash. Neurological: Negative for focal weakness. Endo/Heme/Allergies: Does not bruise/bleed easily. Patient Vitals for the past 6 hrs: Temp Pulse Resp BP 09/23/21 2254 -- 75 -- -- 09/23/21 1858 97.3 ??F (36.3 ??C) 90 18 148/81 Exam: Physical Exam Vitals and nursing note reviewed. Constitutional: Appearance: She is well-developed. Comments: Cooperative Pleasant HENT: Head: Normocephalic and atraumatic. Eyes: Conjunctiva/sclera: Conjunctivae normal. Pupils: Pupils are equal, round, and reactive to light. Cardiovascular: Rate and Rhythm: Regular rhythm. Tachycardia present. Heart sounds: Normal heart sounds. Pulmonary: Effort: Pulmonary effort is normal. No respiratory distress. Breath sounds: Normal breath sounds. No stridor. Abdominal: Palpations: Abdomen is soft. Tenderness: There is no abdominal tenderness. Skin: General: Skin is warm. Comments: Blanching raised macular rash to back. See picture in media tab for further details. Surgical scar on upper back with tenderness. No drainage, fluctuance or induration at incision. Neurological: Mental Status: She is alert and oriented to person, place, and time. Psychiatric: Behavior: Behavior normal. Medical Decision Makin. Back pain and rash DDX: allergic reaction vs heat rash vs post-op complication Plan: neurosurgery recommendations, labs, pain control Results: Labs Reviewed CBC W AUTO DIFFERENTIAL - Abnormal; Notable for the following components: Result Value WBC 13.0 (*) MPV 9.2 (*) Lymphocytes % 19.0 (*) Neutrophils Absolute 9.0 (*) Eosinophils Absolute 0.62 (*) All other components within normal limits COMPREHENSIVE METABOLIC PANEL - Abnormal; Notable for the following components: Glucose 133 (*) Albumin 3.0 (*) Albumin/Globulin Ratio 0.6 (*) eGFR by CKD-EPI 69 (*) All other components within normal limits ERYTHROCYTE SEDIMENTATION RATE - Abnormal; Notable for the following components: Erythrocyte Sedimentation Rate Westergren 115 (*) All other components within normal limits C-REACTIVE PROTEIN - Abnormal; Notable for the following components: C-Reactive Protein 6.0 (*) All other components within normal limits No orders to display ED course: The patient's Oxygen Saturation Monitor was interpreted by me. The reading was 97%. The patient wason room air at the time of the reading. This is interpreted as normal. 21:41 -- Discussed all the pertinent aspects of the case with Neurosurgery who will see the patient. 23:00 -- PUNEET to Dr. Solitario pending recs Consult Yes Procedure done at this time No Ultrasound done at this time No Critical care performed in the ED: No Orders Placed This Encounter ??? CBC W AUTO DIFFERENTIAL ??? COMPREHENSIVE METABOLIC PANEL ??? ERYTHROCYTE SEDIMENTATION RATE ??? C-REACTIVE PROTEIN ??? IP CONSULT TO NEUROSURGERY ??? HYDROmorphone (Dilaudid) injection 0.4 mg ??? droperidol (Inapsine) injection 1.25 mg Medications HYDROmorphone (Dilaudid) injection 0.4 mg (0.4 mg Intravenous $ Given 09/23/212056) droperidol (Inapsine) injection 1.25 mg (1.25 mg Intravenous $ Given 09/23/212211) Clinical Impression: No diagnosis found. Disposition: Pending - PUNEET to Dr. Solitario By signing my name below, I, Reanna Jones, attest that this documentation has been prepared underthe direction and in the presence of Dr. Reyes. Signed: Kehinde Merritt. I, Dr. Ryees, personally performed the services described in this documentation. All medical recordentries made by the scribe were at my direction and in my presence. I have reviewed the chart and agree that the record reflects my personal performance and is accurate and complete. * Ssii Ricks PA-C - 09/23/2021 8:59 PM CDT Bed: AC11 Expected date: Expected time: Means of arrival: Comments: Shelli * Sara Villanueva RN - 09/23/2021 7:20 PM CDT Pt BIBEMS from home after noticing a rash that is spreading around her incision site from having animplant placed in her spine last week. Pt says she then tried to get up out of bed today and had a sudden 10/10 pain that felt like her incision had popped open. Pt says the pain is nothing like her post op pain and the rash is getting worse. Pt is on Bactrim for a UTI but says the rash appeared first documented in this encounter Plan of Treatment Not on file documented as of this encounter Procedures Procedure Name Priority Date/Time Associated Diagnosis Comments C-REACTIVE PROTEIN MALDONADO 09/23/2021 8: 45 PM CDT ERYTHROCYTE SEDIMENTATION RATE STAT 09/23/2021 8:45 PM CDT CBC W AUTO DIFFERENTIAL STAT 09/23/2021 8:45 PM CDT COMPREHENSIVE METABOLIC PANEL STAT 09/23/2021 8:45 PM CDT documented in this encounter Results * (ABNORMAL) C-REACTIVE PROTEIN (09/23/2021 8:45 PM CDT) C-Reactive Protein 6.0(H) <=0.5 mg/dL 09/23/2021 9:14 PM CDT [facility] Blood BLOOD SPECIMEN / Unknown Venipuncture / Unknown 09/23/2021 8:45 PM CDT 09/23/2021 8:50 PM CDT Epi Solitario MD LAB - CHEMISTRY ORDE REGAN Performing Organization Address [facility]/ZIP Co de Phone Number [address] [phone], [facility] [phone] * (ABNORMAL) ERYTHROCYTE SEDIMENTATION RATE (09/23/2021 8:45 PM CDT) Erythrocyte Sedimentation Rate Westergren 115(H) 0 - 30 MM/HR 09/23/2021 9:10 PM T [facility] Blood BLOOD SPECIMEN / Unknown Venipuncture / Unknown 09/23/2021 8:45 PM CDT 09/23/2021 8:51 PM CDT Epi Solitario MD LAB - HEMATOLOGY ORD NEGRITA Performing Organization Address City/[facility]/ZIP Co de Phone Number [address] [phone], [facility] [phone] * (ABNORMAL) COMPREHENSIVE METABOLIC PANEL (09/23/2021 8:45 PM CDT) Pathologist [facility] BUN 17 7 - 26 mg/dL 09/23/2021 9:21 PM [facility] Creatinine 0.92 0.56 - 0.96 mg/dL 09/23/2021 9:21 PM [facility] Sodium 140 136 - 145 mmol/L 09/23/2021 9:21 PM [facility] Potassium 4.4 3.5 - 4.5 mmol/L 09/23/2021 9:21 PM [facility] Chloride 100 98 - 107 mmol/L 09/23/2021 9:21 PM [facility] CO2 27 22 - 29 mmol/L 09/23/2021 9:21 PM [facility] Glucose 133(H) 70 - 115 mg/dL 09/23/2021 9:21 PM [facility] Calcium 9.9 8.4 - 10.2 mg/dL 09/23/2021 9:21 PM [facility] Protein Total 7.7 6.0 - 8.3 g/dL 09/23/2021 9:21 PM [facility] Albumin 3.0(L) 3.4 - 5.0 g/dL 09/23/2021 9:21 PM [facility] Bilirubin Total 0.3 0.2 - 1.2 mg/dL 09/23/2021 9:21 PM [facility] Alkaline Phosphatase 78 40 - 150 U/L 09/23/2021 9:21 PM [facility] ALT 21 5 - 55 U/L 09/23/2021 9:21 PM [facility] AST 15 5 - 34 U/L 09/23/2021 9:21 PM [facility] Anion Gap 17 8 - 18 09/23/2021 9:21 PM [facility] BUN/Creatinine Ratio 18 7 - 23 09/23/2021 9:21 PM [facility] Osmolality Calculated 293 270 - 300 mOsm/kg 09/23/2021 9:21 PM [facility] Albumin/Globulin Ratio 0.6(L) 1.1 - 2.3 09/23/2021 9:21 PM [facility] eGFR by CKD-EPI 69(L) >=90 mL/min/1.7 3 m2 09/23/2021 9:21 PM [facility] Blood BLOOD SPECIMEN / Unknown Venipuncture / Unknown 09/23/2021 8:45 PM CDT 09/23/2021 8:50 PM CDT Epi Solitario MD LAB - CHEMISTRY ANGEL SPEARS [facility] Organization Address City/State/ZIP Co de Phone Number [facility] [address] [place] [phone], [facility] [phone] * (ABNORMAL) CBC W AUTO DIFFERENTIAL (09/23/2021 8:45 PM CDT) WBC 13.0(H) 3.5 - 10.5 10? 3 /uL 09/23/2021 8:54 PM [facility] RBC 4.17 3.80 - 5.20 10? 6 /uL 09/23/2021 8:54 PM [facility] Hemoglobin 12.3 12.0 - 15.6 g/dL 09/23/2021 8:54 PM [facility] Hematocrit 38.5 35.0 - 45.0 % 09/23/2021 8:54 PM [facility] MCV 92.3 80.7 - 98.3 fL 09/23/2021 8:54 PM [facility] MCH 29.5 26.7 - 34.0 pg 09/23/2021 8:54 PM [facility] MCHC 31.9 30.8 - 35.9 g/dL 09/23/2021 8:54 PM [facility] Platelet Count 319 150 - 400 10? 3 /uL 09/23/2021 8:54 PM [facility] RDW-SD 46.0 36.0 - 50.0 fL 09/23/2021 8:54 PM [facility] RDW-CV 13.5 11.2 - 14.8 % 09/23/2021 8:54 PM [facility] MPV 9.2(L) 9.4 - 12.9 fL 09/23/2021 8:54 PM [facility] nRBC Absolute 0.00 0 10? 3 /uL 09/23/2021 8:54 PM [facility] nRBC Auto 0.0 0 /100 WBC 09/23/2021 8:54 PM [facility] Neutrophils % 69.1 35.0 - 70.0 % 09/23/2021 8:54 PM [facility] Lymphocytes % 19.0(L) 20.0 - 43.0 % 09/23/2021 8:54 PM [facility] Monocytes % 6.3 5.0 - 13.0 % 09/23/2021 8:54 PM [facility] Eosinophils % 4.8 0.0 - 6.0 % 09/23/2021 8:54 PM [facility] Basophil % 0.3 0.0 - 2.0 % 09/23/2021 8:54 PM CDT [facility] Neutrophils Absolute 9.0(H) 1.6 - 7.0 10? 3 /uL 09/23/2021 8:54 PM CDT [facility] Lymphocyte Absolute 2.5 1.1 - 3.9 10? 3 /uL 09/23/2021 8:54 PM T [facility] Monocytes Absolute 0.81 0.26 - 1.07 10? 3 /uL 09/23/2021 8:54 PM T [facility] Eosinophils Absolute 0.62(H) 0.00 - 0.47 10? 3 /uL 09/23/2021 8:54 PM CDT [facility] Basophils Absolute 0.04 0.00 - 0.08 10? 3 /uL 09/23/2021 8:54 PM T [facility] Immature Granulocytes % 0.5 0.0 - 1.0 % 09/23/2021 8:54 PM T [facility] Immature Granulocytes Absolute 0.07 09/23/2021 8:54 PM [facility] Blood BLOOD SPECIMEN / Unknown Venipuncture / Unknown 09/23/2021 8:45 PM CDT 09/23/2021 8:51 PM CDT Epi Soiltario MD LAB - HEMATOLOGY ORD ERABLES Performing Organization Address City/State/[facility] Co de Phone Number [facility] [address] [place] [address], [facility] [phone] documented in this encounter Visit Diagnoses Diagnosis Post-op pain Other acute postoperative pain Rash and other nonspecific skin eruption Other intraoperative and postprocedural complications and disorders of the musculoskeletal system Other acute postprocedural pain documented in this encounter Administered Medications Inactive Administered Medications - up to 3 most recent administrations Medication Order MAR Action Action Date Dose Rate Site droperidol (Inapsine) injection 1.25 mg 1.25 mg, Intravenous, ONCE, 1 dose, On Valeri 09/23/21 at 2230 $ Given 09/23/2021 10:12 PM CDT 1.25 mg HYDROmorphone (Dilaudid) injection 0.4 mg 0.4 mg, Intravenous, NOW, 1 dose, On Valeri 09/23/21 at 1930, Patient preference for lesser PRN pain meds may be honored when the patient requests a less strong medication, a lower dose, or a less intrusive route of administration when the lesser drug, dose and route have been ordered for the patient. This patient request must be documented in the MAR. $ Given 09/23/2021 8:57 PM CDT 0.4 mg documented in this encounter Active and Recently Administered Medications Times are shown in CDT. Scheduled Medication Order 09/22/2021 09/23/2021 09/24/2021 droperidol (Inapsine) injection 1.25 mg (COMPLETED) 1.25 mg, Intravenous, ONCE, 1 dose, On Valeri 09/23/21 at 2230 2212 ($ Given - Provider: Estrella Arthur RN) HYDROmorphone (Dilaudid) injection 0.4 mg (COMPLETED) 0.4 mg, Intravenous, NOW, 1 dose, On Valeri 09/23/21 at 1930, Patient preference for lesser PRN pain meds may be honored when the patient requests a less strong medication, a lower dose, or a less intrusive route of administration when the lesser drug, dose and route have been ordered for the patient. This patient request must be documented in the JUN. 2056 ($ Given - Provider: Mohini Dickinson RN) documented in this encounter Care Teams Replenishment Associate Relationship Specialty Start Date End Date Justen Gale MD PCP - General 07/05/21 documented as of this encounter
--- OUTSIDE RECORDS SUMMARY | 2024-04-26 02:33 | XMS_ITS | Encounter Summary ---
Author Organization [facility] Address [address] [place] [address] Care Team Providers Care Housekeeper Head Name Role Phone Justen Gale MD Primary Care Provider [phone] Reason for Visit * Auth/Cert Specialty Diagnoses / Procedures Referred By Elyssa t Referred To Contact Referral ID Status Reason Start Date Expiration Date Visits Re quested Visits Authorized [id number] 1 1 Encounter Details Date Type Department Care Team (Late st Contact Info) Description 10/30/2021 3:53 PM CDT Anesthesia Event [facility] [address] [place] [id number] Andi Choi MD [address] [place] [id number] Melvin Johnston Anes Asst [address] [facility] [place] [address] Anesthesia Record Procedure Summary Procedure Name Responsible Anesthesiologist Anesthesia Start Time Anesthesia Stop Time REMOVAL OF INFECTED SPINAL CORD STIMULATOR BATTERY AND PADDLE LEAD-LEVEL 4 @ 1115 (Back) Andi Choi MD 10/30/21 1553 10/30/21 1716 Events Date Time Event Comment 10/30/2021 1509 1553 An Start 1553 Pt In Room 1553 An Start Data 1556 PT Reassessment 1557 Induction 1559 An Intubation 1610 Anes Ready 1623 Time Out Anesthesia part icipated in timeout at the time documented in the record by nursing 1625 Proc Start 1655 Proc Stop 1655 An Emergence 1701 Extubation 1705 an stop data 1705 Pt out of Room 1705 ANPTO2 1716 An Stop Meds Name Total fentaNYL 100 mcg/2ml injection 100 mcg propofol 200mg/20mL injection 150 mg rocuronium 50 mg/5 mL injection 100 mg phenylephrine 100 mcg/mL syringe 300 mcg dexamethasone 10 mg/ml PF injection 4 mg famotidine 20 mg/2mL injection 20 mg ondansetron 4mg/2mL injection 4 mg sugammadex 200 mg/2mL injection 500 mg LR (Lactated ringers) 550 mL * Agents Name Insp. N2O Exp. Sevoflurane Exp. N2O O2 Air Insp. Sevoflurane * Blood No blood administrations on file. Lines, Drains, and Airways Type Details Placement Removal Peripheral IV Date: 10/30/21; Time : 0316; Orientation: Right 10/30/21 0316 by Aislinn Voss RN 10/30/21 2243 by Summer Howe RN Pressure Injury 10/30/21; 0329; Yes; No; Buttock; Right; 11/06/21; 201210/30/21 0329 by Aislinn Voss RN 11/06/212012 by Generic, Auto Release Peripheral IV Date: 10/30/21; Time : 0839; Orientation: Right; Placed By: Osito LAWLER; Tolerance: Well 10/30/21 0839 by Osito Giles, ASSOCIATE DIRECTOR QA-BOARDING MOTHER 11/05/21 195 by Marimar English RN ETT Date: 10/30/21; Time : 1559; Placed By: Lyubov Umanzor MD; Vent: mask not attempted; Induction: Rapid Sequence, Cricoid pressure; Blade Type: Video; Blade Size: 4; Laryngoscopy View: Grade 2 (partial cords); Intubation Adjuncts: Stylet, Cricoid Pressure; Tube: Endotracheal Tube; Placement: Oral; Tube Type: Cuffed-inflated; Tube Size(mm): 7 MM; Depth of Insertion: 23 CM; Measured From: lips; Attempts: 1; Cuff Infated: Air; Cuff Pressure(cm H2O): 20 cm H2O; Cuff Vol(mL): 10 mL; Verified By: Direct visualization, Bilateral breath sounds, Chest Auscultation, CO2 Monitor 10/30/21 1559 by Lyubov Umanzor MD 10/30/21 1701 by Melvin Johnston Anes Asst Drain 10/30/21; 1643; Saray LAKE MD; 1; Flat; Bulb; 7MM; BARD; HUBLESS SILICONE FLAT DRAIN; [id number]; [id number]; Right, Lower; Back; Injectable; General Anesthesia; 11/14/21; 1424 10/30/21 1643 by Marlys Hawkins RN 11/14/21 1424 by Kerry Anaya RN Procedural Site (Incision) 10/30/21; 1725; Back; BACITRACIN OINTMENT, TELFA, MEDIPORE TAPE; 11/06/21; 201210/30/21 1725 by Marlys Hawkins RN 11/06/212012 by Generic, Auto Release documented in this encounter Social History Tobacco Use Types Packs/Day Years Used Date Smoking Tobacco: Former Cigarettes Q uit: 12/05/1977 Smokeless Tobacco: Never Alcohol Use Standard Drinks/Week Comments No 0 (1 standard drink = 0.6 oz pur e alcohol) AUDIT-C Answer Date Recorded Q1: How often do you have a drink containing alcohol? Never 10/30/2021 Q2: How many drinks containi ng alcohol do you have on a typical day when you are drinking? Patient does not drink Q3: How often do you have si x or more drinks on one occasion? Never 10/30/2021 Sex and Gender Information Value Date Recorded Sex Assigned at Not on file Gender Identity Not on file Sexual Orientation Not on file documented as of this encounter Progress Notes * Andi Choi MD - 10/30/2021 6:08 PM CDT ANESTHESIA POSTOP EVALUATION NOTE Procedure: REMOVAL OF INFECTED SPINAL CORD STIMULATOR BATTERY AND PADDLE LEAD- LEVEL 4 @ 1115 (N/A Back) Karly Marques is a 66 year old female Patient Vitals for the past 6 hrs: BP Temp Pulse Resp SpO2 Pain Rating Score #1 Pain Scale/Observation 10/30/21 1435 154/80 98.1 ??F (36.7 ??C) 87 16 97 % -- -- 10/30/21 1452 -- -- -- -- -- 8 N 10/30/21 1708 141/86 -- -- -- -- -- -- 10/30/21 1710 131/94 -- 90 10 100 % -- N 10/30/21 1715 142/84 -- 96 (!) 8 97 % -- -- 10/30/21 1720 149/89 -- 90 (!) 5 99 % -- -- 10/30/21 1723 -- -- -- -- -- 8 -- 10/30/21 1725 148/88 -- 92 (!) 7 100 % -- -- 10/30/21 1730 131/92 -- 89 14 92 % -- -- 10/30/21 1735 137/88 -- 85 14 92 % -- -- 10/30/21 1740 135/85 -- 87 21 90 % -- -- 10/30/21 1745 132/83 -- 84 12 97 % -- -- 10/30/21 1750 134/83 -- 85 13 97 % 6 -- 10/30/21 1755 131/76 -- 86 16 97 % -- -- 10/30/21 1800 -- -- 82 14 95 % -- -- Anesthesia Type: general ETT Pre-op Diagnosis Codes: * Infection [B99.9] Respiratory Function: natural Cardiac Function: stable Postop Pain: acceptable to the patient Postop Hydration: adequate Postop Nausea: none Assessment: no apparent anesthetic complications, patient tolerated procedure well and no evidence of recall Patient Disposition: Release from Anesthesia Care COMPLICATIONS: No complications documented. * Andi Choi MD - 10/30/2021 3:00 PM CDT ANESTHESIA PREOPERATIVE EVALUATION NOTE Procedure: REMOVAL OF INFECTED SPINAL CORD STIMULATOR BATTERY AND PADDLE LEAD- LEVEL 4 @ 1115 (N/A ) Vitals: No data found. LMP: No LMP recorded. Patient is postmenopausal. OB Status: Postmenopausal ANESTHESIA PRE-EVALUATION NOTE History of Present Illness: Patient is 66 yo F with morbid obesity, anxiety/depression, HTN, LUL and DM II s/p SCS placement on09/16/21 here for batery washout and possible removal due to infection. Patient has a history of complications with anesthesia including need to videolaryngoscopy for intubation and severe restless leg syndrome with wake up. Patient is also on Xarelto, last dose 2 days ago. The patient is a current non-smoker. Physical [...] AICD/Pacemaker: No Renal Disease: No Diagnostic Tests: Lab(s) reviewed: Yes. ANESTHESIA PREOPERATIVE EVALUATION NOTE Procedure: REMOVAL OF INFECTED SPINAL CORD STIMULATOR BATTERY AND PADDLE LEAD- LEVEL 4 @ 1115 (N/A ) Vitals: No data found. LMP: No LMP recorded. Patient is postmenopausal. [...] procedural Anesthetic Plan was discussed with the TRAVEL INSURANCE AGENT. BMI, Height, Weight Tobacco History Estimated body mass index is 53.85 kg/m?? as calculated from the following: Height as of an earlier encounter on 10/30/21: 1.549 m (5' 1 ). Weight as of an earlier encounter on 10/30/21: 129.3 kg (285 lb). Social History Tobacco Use Smoking Status Former Smoker ??? Packs/day: 0.50 ??? Quit date: 12/05/1977 ??? Years since quittin.9 Smokeless Tobacco Never Used Alcohol History Drug History Social History Substance and Sexual Activity Alcohol Use No Social History Substance and Sexual Activity Drug Use No Outpatient Medications: Inpatient Medications: No outpatient medications have been marked as taking for the 10/30/21 encounter (Anesthesia Event) with Melvin Johnston Anes Asst. No current facility-administered medications for this visit. Facility-Administered Medications Ordered in Other Visits Medication Dose Last Admin ??? 0.9% NaCl IV ??? 0.9% NaCl 3 mL And ??? 0.9% NaCl 1-10 mL ??? amitriptyline 25 mg ??? dextrose IV for hypoglycemia 12.5 g Or ??? dextrose IV for hypoglycemia 25 g ??? exemestane 25 mg 25 mg at 10/30/21 1311 ??? glucagon 1 mg ??? glucose (Diabetic Use) ??? glucose (Diabetic Use) gel ??? glucose chew tab 16 g ??? HYDROcodone-acetaminophen 1 tablet 1 tablet at 10/30/21 1452 ??? meropenem 1,000 mg Stopped at 10/30/21 1021 ??? oxybutynin 5 mg ??? rOPINIRole 5 mg ??? vancomycin 1,500 mg Stopped at 10/30/21 1302 ??? vancomycin (VANCOCIN) IV dose per pharmacy Allergies: Allergies Allergen Reactions ??? Latex Rash [...] apnea) Cardiovascular (+) Essential hypertension Neuro/Psych (+) CVA (cerebral vascular accident) Pulmonary (+) LUL (obstructive sleep apnea) Endocrine (+) Type 2 diabetes mellitus without complication Problem List: Patient Active Problem List Diagnosis Date Noted ??? Chronic back pain 08/16/2021 Priority: High ??? CVA (cerebral vascular accident) 01/24/2018 Priority: High ??? Anxiety and depression 11/12/2017 Priority: High ??? Chronic anticoagulation 11/09/2017 Priority: High ??? Essential hypertension 10/23/2017 Priority: High Last Assessment & Plan: On lisinopril ??? Type 2 diabetes mellitus without complication 08/22/2017 Priority: High Last Assessment & Plan: [...] CPAP ??? Neuropathy 07/05/2017 Priority: High ??? Preoperative examination 10/30/2021 Priority: Not Prioritized [...] ??? Type 2 diabetes mellitus without complications Surgical History: Past Surgical History: Procedure Laterality Date ??? Arthroplasty Right ??? Section ??? Cholecystectomy, Laparoscopic ??? FOOT SURGERY left foot tendon repair ??? Hernia Repair ??? Knee Arthroscopy bilateral ??? Mastectomy ??? Thoracic Spine Laminectomy Right 09/16/2021 Right; THORACIC EIGHT- THORACIC NINE LAMINECTOMY FOR PLACEMENT OF A DORSAL COLUMN STIMULATION SYSTAM AND PLACEMENT OF THE BATTERY IN THE LOWER LUMBAR REGION BOOKKEEPER Status: No LMP recorded. Patient is postmenopausal. Postmenopausal OB History No obstetric history on file. Covid Vaccine: Lab Results: Recent Labs Base Name 10/30/21 1448 [id number] 170* SPECIMENTYPE Cap Fingerstick Recent Labs Component Name 10/30/21 0533 WBC 20.5* RBC 4.28 HCT 39.8 HGB 12.5 PLTCOUNT 298 MCV 93.0 MCH 29.2 MCHC 31.4 MPV 10.4 Recent Labs Component Name 10/30/21 1346 ABORH O POS ABSCG NEG Recent Labs Component Name 10/30/21 1346 BLOODU 1+* WBCU 6-10* NITRITE Negative PROTEINU Negative Recent Labs Component Name 10/30/21 0533 POTASSIUM 4.1 CALCIUM 9.2 CO2 27 GLUCOSE 217* BUN 14 CREATININE 0.63 Recent Labs Component Name 10/30/21 1346 PTT 30.7 PT 15.8* INR 1.3 No results found for requested labs within last 120 days. Recent Labs Result Component Current Result Alkaline Phosphatase 77 (10/30/2021) ALT 14 (10/30/2021) Anion Gap 13 (10/30/2021) AST 11 (10/30/2021) eGFR by CKD-EPI >90 (10/30/2021) ANESTHESIA PLAN ASA Score: 3 E NPO Status: No solids since midnight and No liquids within 2 hours Anesthesia Plan: general ETT (glidescope) Planned Induction: intravenous Planned Postop Destination: PACU Anesthetic plan was discussed with: patient Anesthetic Plan discussion was: Consented The patient's procedural Anesthetic Plan was discussed with the TRAVEL INSURANCE AGENT. Overall additional findings/comments: C-mac for intubation Modified RSI I have reviewed the chart I have interviewed and examined the patient I agree with the documentation and have discussed the anesthesia plan w/ the Resident, TRAVEL INSURANCE AGENT or AA [facility]#[id number]: Documentation of Current Medications in the Medical Record Patient has been marked Ready for Procedure I attest to documenting, updating or reviewing a patient's current medications using all immediate resources available on the date of the encounter. This list must include ALL known prescriptions, [id number], herbals, and vitamin/mineral/dietary (nutritional) supplements AND must contain the medications' name, dosages, frequency and route of administration I discussed risks of anesthesia including, chipped or missing tooth, sore throat, [place], CVA, prolonged mechanical ventilation and . Pt agrees with anesthetic plan, questions answered. Patient was seen prior to patient wheeling back to procedural area at 10/30/21 1509. BMI, Height, Weight Tobacco History Estimated body mass index is 53.85 kg/m?? as calculated from the following: Height as of an earlier encounter on 10/30/21: 1.549 m (5' 1 ). Weight as of an earlier encounter on 10/30/21: 129.3 kg (285 lb). Social History Tobacco Use Smoking Status Former Smoker ??? Packs/day: 0.50 ??? Quit date: 12/05/1977 ??? Years since quittin.9 Smokeless Tobacco Never Used Alcohol History Drug History Social History Substance and Sexual Activity Alcohol Use No Social History Substance and Sexual Activity Drug Use No Outpatient Medications: Inpatient Medications: No outpatient medications have been marked as taking for the 10/30/21 encounter (Anesthesia Event) with Melvin Johnston Anes Asst. No current facility-administered medications for this visit. Facility-Administered Medications Ordered in Other Visits Medication Dose Last Admin ??? 0.9% NaCl IV ??? 0.9% NaCl 3 mL And ??? 0.9% NaCl 1-10 mL ??? amitriptyline 25 mg ??? dextrose IV for hypoglycemia 12.5 g Or ??? dextrose IV for hypoglycemia 25 g ??? exemestane 25 mg 25 mg at 10/30/21 1311 ??? glucagon 1 mg ??? glucose (Diabetic Use) ??? glucose (Diabetic Use) gel ??? glucose chew tab 16 g ??? HYDROcodone-acetaminophen 1 tablet 1 tablet at 10/30/21 1452 ??? meropenem 1,000 mg Stopped at 10/30/21 1021 ??? oxybutynin 5 mg ??? rOPINIRole 5 mg ??? vancomycin 1,500 mg Stopped at 10/30/21 1302 ??? vancomycin (VANCOCIN) IV dose per pharmacy Allergies: Allergies Allergen Reactions ??? Latex Rash [...] apnea) Cardiovascular (+) Essential hypertension Neuro/Psych (+) CVA (cerebral vascular accident) Pulmonary (+) LUL (obstructive sleep apnea) Endocrine (+) Type 2 diabetes mellitus without complication Problem List: Patient Active Problem List Diagnosis Date Noted ??? Chronic back pain 08/16/2021 Priority: High ??? CVA (cerebral vascular accident) 01/24/2018 Priority: High ??? Anxiety and depression 11/12/2017 Priority: High ??? Chronic anticoagulation 11/09/2017 Priority: High ??? Essential hypertension 10/23/2017 Priority: High Last Assessment & Plan: On lisinopril ??? Type 2 diabetes mellitus without complication 08/22/2017 Priority: High Last Assessment & Plan: Lashay adamson. Start on SSI and accucheks Last Assessment [...] CPAP ??? Neuropathy 07/05/2017 Priority: High ??? Preoperative examination 10/30/2021 Priority: Not Prioritized [...] ??? Type 2 diabetes mellitus without complications Surgical History: Past Surgical History: Procedure Laterality Date ??? Arthroplasty Right ??? Section ??? Cholecystectomy, Laparoscopic ??? FOOT SURGERY left foot tendon repair ??? Hernia Repair ??? Knee Arthroscopy bilateral ??? Mastectomy ??? Thoracic Spine Laminectomy Right 09/16/2021 Right; THORACIC EIGHT- THORACIC NINE LAMINECTOMY FOR PLACEMENT OF A DORSAL COLUMN STIMULATION SYSTAM AND PLACEMENT OF THE BATTERY IN THE LOWER LUMBAR REGION BOOKKEEPER Status: No LMP recorded. Patient is postmenopausal. Postmenopausal OB History No obstetric history on file. Covid Vaccine: Lab Results: Recent Labs Base Name 10/30/21 1448 [id number] 170* SPECIMENTYPE Cap Fingerstick Recent Labs Component Name 10/30/21 0533 WBC 20.5* RBC 4.28 HCT 39.8 HGB 12.5 PLTCOUNT 298 MCV 93.0 MCH 29.2 MCHC 31.4 MPV 10.4 Recent Labs Component Name 10/30/21 1346 ABORH O POS ABSCG NEG Recent Labs Component Name 10/30/21 1346 BLOODU 1+* WBCU 6-10* NITRITE Negative PROTEINU Negative Recent Labs Component Name 10/30/21 0533 POTASSIUM 4.1 CALCIUM 9.2 CO2 27 GLUCOSE 217* BUN 14 CREATININE 0.63 Recent Labs Component Name 10/30/21 1346 PTT 30.7 PT 15.8* INR 1.3 No results found for requested labs within last 120 days. Recent Labs Result Component Current Result Alkaline Phosphatase 77 (10/30/2021) ALT 14 (10/30/2021) Anion Gap 13 (10/30/2021) AST 11 (10/30/2021) eGFR by CKD-EPI >90 (10/30/2021) documented in this encounter Procedure Notes * Lyubov Umanzor MD - 10/30/2021 4:22 PM CDTAssociated Order(s): ETT Placement Endotracheal Tube Placement: Patient Location: OR. Intubation Event Date/Time: 10/30/2021 3:59 PM Procedure: intubation ([id number]). Procedure Section: Sedation: IV sedation. Indications for Airway Management: airway protection Procedure pretreatments used? No Induction: rapid sequence and cricoid pressure Patient Position: supine Mask Ventilation: not attempted. Blade Type: Video (CMAC) Blade Size: 4 Laryngoscopy View: grade 2 (partial cords) Intubation Adjuncts: cricoid pressure and stylet Tube: endotracheal tube Placement: oral Tube type: cuff - inflated Tube Size (MM): 7 Depth of Insertion (CM): 23 Measured From: lips Cuff volume (mL): 10 Cuff inflation pressure (CM H20): 20 Cuff Inflated With: air Number of Attempts: 1. Placement Verified By: direct visualization, bilateral breath sounds, chest auscultation and CO2 monitor CXR Findings: ETT in proper place. Tube secured with: adhesive tape. Dentition unchanged? Yes Difficult Airway? No. Procedure Start Time: 10/30/2021 3:59 PM. Staff Section Anesthesia Provider: Lyubov Umanzor MD, Performed the procedure Provider #1: Andi Choi MD. documented in this encounter Miscellaneous Notes * Anesthesia Transfer of Care - Melvin Johnston Anes Assmakayla - 10/30/2021 5:17 PM CDT ANESTHESIA TRANSFER OF CARE NOTE Today's Date: 10/30/2021 Date of : 1955 Patient: Karly Marques Procedure(s): REMOVAL OF INFECTED SPINAL CORD STIMULATOR BATTERY AND PADDLE LEAD-LEVEL 4 @ 1115 Surgeon(s): Primary: Maxi Gregg MD Resident - Assisting: Genaro Candelario MD Preop Diagnosis: Pre-op Diagnois: * Infection [B99.9] Pre-op Meds (From admission, onward) Start Stop Status Route Frequency Ordered 10/30/21 1445 0.9% NaCl infusion -- Dispensed IV CONTINUOUS 10/30/21 1437 10/30/21 1437 0.9% NaCl injection 1-10 mL And Linked Group Details -- Dispensed IK PRN 10/30/21 1437 10/30/21 1445 0.9% NaCl injection 3 mL And Linked Group Details -- Dispensed IK EVERY 8 HOURS 10/30/21 1437 10/30/21 0800 acetaminophen (Tylenol) tablet 650 mg 10/30 0758 Completed PO NOW 10/30/21 0751 10/30/21 2100 amitriptyline (Elavil) tablet 25 mg Note to Pharmacy: OP sig: at bedtime -- Verified PO AT BEDTIME 10/30/21 1131 10/30/21 1129 dextrose IV 12.5 g Or Linked Group Details -- Verified IV PRN 10/30/21 1131 10/30/21 1129 dextrose IV 25 g Or Linked Group Details -- Verified IV PRN 10/30/21 1131 10/30/21 1200 exemestane (Aromasin) tablet 25 mg Note to Pharmacy: OP sig: Take 25 mg by mouth DAILY -- Dispensed PO DAILY 10/30/21 1131 10/30/21 1129 glucagon (Glucagen) injection 1 mg -- Verified IM PRN 10/30/21 1131 10/30/21 1129 glucose (Diabetic Use) (Dex4 Glucose) oral liquid -- Verified PO PRN 10/30/21 1131 10/30/21 1129 glucose (Diabetic Use) oral gel -- Verified PO PRN 10/30/21 1131 10/30/21 1129 glucose chew tablet 4 tablet -- Verified PO PRN 10/30/21 1131 10/30/21 2200 heparin injection 5,000 Units -- Verified SC EVERY 8 HOURS 10/30/21 1701 10/30/21 1128 HYDROcodone-acetaminophen ([place]) 5-325 MG tablet 1 tablet -- Verified PO EVERY 6 HOURS PRN 10/30/21 1131 10/30/21 0630 meropenem (Merrem) 1,000 mg in 0.9% NaCl IV 50 mL IVPB -- Dispensed IV EVERY 8 HOURS 10/30/21 0550 10/30/21 0415 morphine injection 4 mg 10/30 0537 Completed IV NOW 10/30/21 0403 10/30/21 0815 morphine injection 4 mg 10/30 0758 Completed IV ONCE 10/30/21 0751 10/30/21 0445 ondansetron (disintegrating) (Zofran ODT) tablet 4 mg 10/30 0536 Completed PO ONCE 10/30/21 0418 10/30/21 1400 oxybutynin (Ditropan) tablet 5 mg Note to Pharmacy: OP sig: Take 5 mg by mouth TID. -- Verified PO 3 TIMES DAILY 10/30/21 1131 10/30/21 2100 rOPINIRole (Requip) tablet 5 mg Note to Pharmacy: OP sig: TAKE 1 TABLET BY MOUTH EVERY NIGHT -- Verified PO AT BEDTIME 10/30/21 1131 10/30/21 0600 vancomycin (Vancocin) 1,500 mg in 500 mL NaCl IVPB -- Dispensed IV EVERY 12 HOURS 10/30/21 0618 10/30/21 0544 vancomycin (Vancocin) IV dose per pharmacy -- Verified XX DIRECTED 10/30/21 0550 Post-op Diagnosis: * Infection [B99.9] . Allergies Allergen Reactions ??? Latex Rash [...] 3 hrs: BP Temp Pulse Resp SpO2 Pain Rating Score #1 10/30/21 1452 -- -- -- -- -- 8 10/30/21 1435 154/80 98.1 ??F (36.7 ??C) 87 16 97 % -- Lines, Drains, and Airways Type Details Placement Removal Peripheral IV Date: 10/30/21; Time: 315; Orientation: Right; Location: Antecubital; Gauge: 20 Gauge 10/30/21 031 by Aislinn Voss RN Peripheral IV Date: 10/30/21; Time: 08; Orientation: Right; Location: Arm; Placed By: Osito LAWLER; Gauge: 20 Gauge; Locals: None; Tolerance: Well 10/30/21 0839 by Osito Giles RN ETT Date: 10/30/21; Time: 155; Placed By: Lyubov Umanzor MD; Vent: mask not attempted; Induction: Rapid Sequence, Cricoid pressure; Blade Type: Video; Blade Size: 4; Laryngoscopy View: Grade 2 (partial cords); Intubation Adjuncts: Stylet, Cricoid Pressure; Tube: Endotracheal Tube; Placement: Oral;Tube Type: Cuffed-inflated; Tube Size(mm): 7 MM; Depth of Insertion: 23 CM; Measured From: lips; Attempts: 1; Cuff Infated: Air; Cuff Pressure(cm H2O): 20 cm H2O; Cuff Vol(mL): 10 mL; Verified By: Direct visualization, Bilateral breath sounds, Chest Auscultation, CO2 Monitor 10/30/21 1559 by Lyubov Umanzor MD 10/30/21 1701 by Melvin Johnston Anes Asst Drain 10/30/21; 1643; Saray LAKE MD; 1; Flat; Bulb; 7MM; BARD; HUBLESS SILICONE FLAT DRAIN; [id number]; [id number]; Right, Lower; Back; Injectable; General Anesthesia 10/30/21 1643 by Marlys Hawkins,NURIS Intraprocedure I/O Totals Intake LR (Lactated ringers) 550.00 mL Total Intake 550 mL Patient Transfer Location: PACU Transport Airway: supplemental O2 and spontaneous respirations Transport Monitoring: heart rate, continuous pulse oximetry and frequent blood pressure checks Complications: None Handoff Given? Yes Checklist or [...] understanding of report from the receiving PACUteam. Josesito Hilliard Assmakayla documented in this encounter Plan of Treatment Not on file documented as of this encounter Procedures Procedure Name Priority Date/Time Associated Diagnosis Comments ENDOTRACHEAL TUBE NOTE Routine 10/30/2021 4:22 PM CDT documented in this encounter Results * ETT LINE PERFORMABLE (10/30/2021 4:22 PM CDT) Narrative Lyubov Umanzor MD - 10/30/2021 4:22 PM CDT Lyubov Umanzor MD ? 10/30/2021 ??4:22 PM Endotracheal Tube Placement: ? Patient Location: OR. Intubation Event Date/Time: ??10/30/2021 3:59 PM Procedure: intubation ([id number]). Procedure Section: ?? Sedation: IV sedation. Indications for Airway Management: ??airway protection Procedure pretreatments used? ??No Induction: rapid sequence and cricoid pressure Patient Position: ??supine Mask Ventilation: not attempted. Blade Type: Video ([facility]) Blade Size: 4 Laryngoscopy View: grade 2 [...] PM. Staff Section ? Anesthesia Provider: Lyubov Umanzor MD, Performed the procedure ? Provider #1: Andi Choi MD. Andi Villanueva MD GENERAL ANESTHESI A ORDERABLES documented in this encounter Visit Diagnoses Not on filedocumented in this encounter Administered Medications Inactive Administered Medications - up to 3 most recent administrations Medication Order MAR Action Action Date Dose Rate Site dexAMETHasone Sod Phosphate PF injection Intravenous, PRN, Starting on 10/30/21 at 1604, Until 10/30/21 at 1716, Anesthesia Intra-op $ Given 10/30/2021 4:04 PM CDT 4 mg famotidine (Pepcid) injection Intravenous, PRN, Starting on 10/30/21 at 1553, Until 10/30/21 at 1716, Anesthesia Intra-op $ Given 10/30/2021 3:53 PM CDT 20 mg fentaNYL (PF) (Sublimaze) injection Intravenous, PRN, Starting on 10/30/21 at 1557, Until 10/30/21 at 1716, Anesthesia Intra-op $ Given 10/30/2021 3:57 PM CDT 100 mcg lactated ringers infusion Intravenous, CONTINUOUS PRN, Starting on 10/30/21 at 1553, Until 10/30/21 at 1716, Anesthesia Intra-op $ New Bag/Syringe 10/30/2021 3:53 PM CDT ondansetron (Zofran) injection Intravenous, PRN, Starting on 10/30/21 at 1642, Until 10/30/21 at 1716, Anesthesia Intra-op $ Given 10/30/2021 4:42 PM CDT 4 mg phenylephrine 100 mcg/mL injection Intravenous, PRN, Starting on 10/30/21 at 1602, Until 10/30/21 at 1716, Anesthesia Intra-op $ Given 10/30/2021 4:08 PM CDT 100 mcg $ Given 10/30/2021 4:05 PM CDT 100 mcg $ Given 10/30/2021 4:02 PM CDT 100 mcg propofol (Diprivan) injection Intravenous, PRN, Starting on 10/30/21 at 1557, Until 10/30/21 at 1716, Anesthesia Intra-op $ Given 10/30/2021 3:57 PM CDT 150 mg rocuronium (Zemuron) injection Intravenous, PRN, Starting on 10/30/21 at 1557, Until 10/30/21 at 1716, Anesthesia Intra-op $ Given 10/30/2021 3:57 PM CDT 100 mg sugammadex (Bridion) injection Intravenous, PRN, Starting on 10/30/21 at 1659, Until 10/30/21 at 1716, Anesthesia Intra-op $ Given 10/30/2021 5:04 PM CDT 100 mg $ Given 10/30/2021 4:59 PM CDT 400 mg documented in this encounter Care Teams Housekeeper Head Relationship Specialty Start Date End Date Justen Gale MD PCP - General 07/05/21 documented as of this encounter
--- OUTSIDE RECORDS SUMMARY | 2024-04-26 02:33 | XMS_ITS | Encounter Summary ---
Author Organization [facility] Address [address] [place] [address] Care Team Providers Care Television Production Assistant Name Role Phone Justen Gale MD Primary Care Provider [phone] Reason for Visit * Reason Comments Rash Pt to ED via wheelch air, pt states she had a pain stimulator placed at [facility] 09/16/21, pt noted rash and now weeping at incision site, pt states purulent drainage, +pain increase, pt denies fevers at home, PMH DVT, PE, Breast CA, DM2, HTN Encounter Details Date Type Department Care Team (Late st Contact Info) Description 10/06/2021 11:15 AM CDT - 10/06/2021 4:57 PM CDT Emergency [facility] EMERGENCY DEPARTMENT [address] [place] [id number] Epi Solitario MD [address] [place] [address] Eddie Khalil MD [address] [place] [address] History of laminectomy; Problem involving surgical incision Discharge Disposition: Home or Self Care Social History Tobacco Use Types Packs/Day Years Used Date Smoking Tobacco: Former Cigarettes Q uit: 12/05/1977 Smokeless Tobacco: Never Alcohol Use Standard Drinks/Week Comments No 0 (1 standard drink = 0.6 oz pur e alcohol) AUDIT-C Answer Date Recorded Q1: How often do you have a drink containing alcohol? Never 10/06/2021 Q2: How many drinks containi ng alcohol do you have on a typical day when you are drinking? Patient does not drink Q3: How often do you have si x or more drinks on one occasion? Never 10/06/2021 Sex and Gender Information Value Date Recorded Sex Assigned at Not on file Gender Identity Not on file Sexual Orientation Not on file documented as of this encounter Last Filed Vital Signs Vital Sign Reading Time Taken Comments Blood Pressure 148/77 10/06/2021 4:00 PM CDT Pulse 88 10/06/2021 4:00 PM CDT Temperature 36.4 ??C (97.6 ??F) 10/06/2021 11:00 AM C DT Respiratory Rate 18 10/06/2021 2:58 PM CDT Oxygen Saturation 99% 10/06/2021 4:00 PM CDT Inhaled Oxygen Concentration - - Weight 129.3 kg (285 lb) 10/06/2021 11:00 AM CDT Height 154.9 cm (5' 1 ) 10/06/2021 11:00 AM CDT Body Mass Index 53.85 10/06/2021 11:00 AM CDT documented in this encounter Discharge Instructions * Discharge Instructions* Nimo Lees PA-C - 10/06/2021 3:38 PM CDT You came into the ED co of incisional drainage and pain. You were seen by neurosurgery and they reccommended antibiotics for two weeks and follow up in clinic as scheduled. Please follow up with your primary care physician in the next 3-5 days for re- evaluation and further management. Please understand that this Emergency Department visit is NOT COMPLETE without outpatient follow up to fully review your ED results and to reassess your condition. If you have further concerns and are unable to talk to your doctor, you are encouraged to return to the ED. * Attachments The following attachments cannot be sent through Care Everywhere. * Post Op Wound Check, Infection (Citizen Of [place]) documented in this encounter Medications at Time [...] EVERY NIGHT 06/09/2021 amitriptyline (ELAVIL) 25 MG tabletIndications:f or restless legs Take 1 (one) tablet by mouth at bedtime Reasons: for restless legs 06/05/2023 B-D ULTRAFINE III SHORT PEN 31G X 8 MM needle USE 6 TIMES DAILY DIRECTED 06/24/2021 11/24/2021 clindamycin (CLEOCIN) 300 MG capsule Take 1 (one) capsule by mouth 3 times daily for 14 days 42 capsule 10/06/2021 10/20/2021 enoxaparin (LOVENOX) 40 MG/0.4ML injection Inject 40 mg subcutaneously every 12 hours 08/19/2021 11/16/2021 HUMALOG KWIKPEN 100 UNIT/ML pen ADMINISTER 22 UNITS BEFORE EACH MEAL. MAX DAILY DOSE OF 120 UNITS 03/21/2021 11/17/19 HYDROcodone-acetami nophen (NORCO) 7.5-325 MG tablet Take 1 tablet [...] tablet Take 5 mg by mouth TID. 04/20/2017/09/2021 pantoprazole EC (PROTONIX) 40 MG tablet Take 40 mg by mouth 2 times daily 09/14/2021 10/14/2021 rivaroxaban (XARELTO) 10 MG tablet Take 20 mg by mouth daily with dinner. 04/20/2017 11/24/2021 tiZANidine (ZANAFLEX) 4 MG tablet 09/16/2021 04/04/2022 documented as of this encounter Progress Notes * Shanthi Ross - 10/06/2021 4:57 PM CDT Discharge Licensed Staff Mft received request from Rachel Campbell APRN to arrange follow-up appointment for Patient with Neurosurgery. This engineering writer called [phone] and spoke with Abiola. Licensed Staff Mft was able to obtain follow-up appointment for Patient with MUSEUM DOCENT Dasia Mendoza on Wednesday October 20, 2021 at 10:45 am. Nofurther follow-up needs from scheduler conveyor indicated at this time. Shanthi Ross, Discharge Licensed Staff Mft 10/07/2021 documented in this encounter Consult Notes * Rachel Campbell APRN-[facility] - 10/06/2021 11:47 AM CDTAssociated Order(s): IP CONSULT TO NEUROSURGERY Neurosurgery Consult History and Physical Name: Karly Marques : 1955 Date of Admission:10/06/2021 Date of Consult:10/06/2021 11:53 AM Chief Complaint (CC): wound drainage HISTORY OF PRESENT ILLNESS (HPI): 66 year old woman s/p T9-8 laminectomy for dorsal root column stimulator placement on 09/16/[address] Gregg who presents to ED today with complaint of wound drainage. She states that she developed a rash initially and was seen regarding her rash concerns near her wound and again in clinic two days ago, where her wound and drainage were assessed. Patient had completed a course of antibiotics for her UTI on about 09/18/21 and has not taken any new abx since. She states that she called access line overnight as she feels like the drainage has increased. Her woundis found to be open to air, with some drainage evident on her underclothes. She denies other complaints but states she is prone to infections and had a wound infection with prior mastectomy. Past Medical History: Diagnosis Date ??? Breast [...] Cardiovascular: Negative Gastrointestinal: Negative Genitourinary:negative Hematologic/lymphatic: Negative Musculoskeletal:Improved since stimulator placement Neurological: Negative Behavioral/Psych: Negative Integument: rash noted after surgery, improved, drainage that is staining underclothes, tender overincision PHYSICAL EXAM BP 160/96 Pulse 90 Temp 97.6 ??F (36.4 ??C) Resp 17 Ht 5' 1 (1.549 m) Wt 285 lb (129.3 kg) SpO2 97% BMI 53.85 kg/m2 General: in no acute distress Cardiovascular: RRR Respiratory: CTAB Abdominal: S, NT, ND Neuro: awake, alert, oriented to person, place and time, follows commands in all extremities, incision cdi closed with absorbable sutures with are intact, medial aspect of horizontal incision over the right gluteus with drop of clear bright yellow fluid, no pus, not expressible, no fluctuant mass, no redness no swelling LABORATORY Recent Labs Component Name 09/23/212044 WBC 13.0* HGB 12.3 HCT 38.5 PLTCOUNT 319 Recent Labs Component Name 09/23/212044 NA 140 POTASSIUM 4.4 CO2 27 BUN 17 CREATININE 0.92 GLUCOSE 133* No results for input(s): INR in the last 85882 hours. TEG: RADIOLOGY CT: Assessment: 66 year old female s/p T8-9 laminectomy for dorsal root column stimulator placement 09/16/21 with Sebastian presents to ED with complaint of increasing drainage from surgical incision, currently afebrile without purulence Plan: Please obtain new CBC BMP Please dress incision with gauze Labs ordered Patient afebrile If labs without large leukocytosis, will discuss observation and close follow up with antibiotic treatment outpatient with patient Further recommendations pending lab results Case discussed with Dr Augusta Campbell, NEWSPAPER MANAGER-REFINERY OPERATOR REFORMING UNIT 10/06/2021 11:53 AM documented in this encounter ED Notes * Laurie Hargrove, NURIS - 10/06/2021 4:50 PM CDT This RN attempted to obtain second set of blood cultures. Blood culture tech previously attempted, but contacted this RN for assistance as patient is hard stick. RN able to obtain second set of bloodcultures, although blood return was lost during collection, and set may have less than needed bloodin culture set. Patient up for discharge at this time, and states her ride is here and she needs toleave. Patient aware that cultures may not have enough blood for sample. Lab contacted regarding samples sent down. Pt still wanting to be discharged. Discharge instructions reviewed with patient. Patient verbalized a good understanding of discharge plan, and has no further questions at this time. Pt AxOx4 and ambulatory upon discharge. * Rosie Hunter - 10/06/2021 3:00 PM CDT Blood stick attempted x3, first bottle of blood cultures obtained. Second bottle & second set not obtained. * Eddie Khalil MD - 10/06/2021 2:28 PM CDT ASSUME CARE NOTE Patient signed out to me by Dr. Solitario at 2:00 PM. Briefly, the patient is being evaluated for drainage from surgery site. Patient reports placement of a pain stimulatory??in the right lower lumbar region on 09/16/[address] Gregg. She states she presented to a clinic two days ago and told to present to the ED if symptoms worsened. The plan at present is pending remaining labs. Vitals: 10/06/21 1100 10/06/21 1458 BP: 160/96 151/86 Pulse: 90 79 Resp: 17 18 Temp: 97.6 ??F (36.4 ??C) SpO2: 97% 100% Weight: 129.3 kg (285 lb) Height: 1.549 m (5' 1 ) Estimated body mass index is 53.85 kg/m?? as calculated from the following: Height as of this encounter: 1.549 m (5' 1 ). Weight as of this encounter: 129.3 kg (285 lb). At this time the following studies are : Labs Reviewed CBC W AUTO DIFFERENTIAL - Abnormal; Notable for the following components: Result Value WBC 11.5 (*) Neutrophils % 71.9 (*) Lymphocytes % 17.4 (*) Neutrophils Absolute 8.25 (*) All other components within normal limits COMPREHENSIVE METABOLIC PANEL - Abnormal; Notable for the following components: Glucose 171 (*) Calcium 10.3 (*) Protein Total 9.0 (*) BUN/Creatinine Ratio 28 (*) Albumin/Globulin Ratio 0.7 (*) All other components within normal limits PT-INR [facility] - Abnormal; Notable for the following components: PT 17.4 (*) All other components within normal limits CULTURE BLOOD CULTURE BLOOD No orders to display No results found. ED Course: 3:30 PM: Neurology recommends two week course of antibiotics and follow up in their clinic. Clinical Impression: 1. History of laminectomy 2. Problem involving surgical incision Disposition: DC By signing my name below, I, Lora Hurt, attest that this documentation has been prepared under the direction and in the presence of Dr. Khalil. Signed: Kehinde Bravo. I, Dr. Khalil, personally performed the services described in this documentation. All medical record entries made by the scribe were at my direction and in my presence. I have reviewed the chart andagree that the record reflects my personal performance and is accurate and complete. * Epi Solitario MD - 10/06/2021 11:16 AM CDT ED Attending Note History: Karly Marques is a 66 year old female is presenting to the ED c/o drainage from surgery site. Pmhx of chronic axial low back pain and leg pain refractory to medical management, s/p T8-T9 laminectomy for placement of a dorsal column stimulation system and placement of the battery (OpenCloud) in theright lower lumbar region on 09/16/[address] Gregg. Seen in clinic 2 days ago and told present ifsymptoms worsened. States since then shes noted purulent drainage and worsening pain. Denies fevers, chills, NVD. Symptoms are better with nothing, worse with nothing. Denies any other complaints at this time. Reports they were in their usual state of health prior to this. Pt has had these symptomsbefore. Past Medical History: Diagnosis Date ??? Breast [...] Packs/day: 0.50 Quit date: 12/05/1977 Years since quittin.9 ??? Smokeless tobacco: Never Used Vaping Use [...] Systems: Review of Systems Constitutional: Negative for fever. HENT: Negative for congestion and sore throat. Eyes: Negative for blurred vision and double vision. Respiratory: Negative for cough and shortness of breath. Cardiovascular: Negative for chest pain and palpitations. Gastrointestinal: Negative for abdominal pain, diarrhea, nausea and vomiting. Genitourinary: Negative for dysuria. Musculoskeletal: Negative for back pain and neck pain. (+) Drainage from incision site Skin: Negative for itching and rash. Neurological: Negative for dizziness, weakness and headaches. Psychiatric/Behavioral: Negative for suicidal ideas. No data found. Exam: Physical Exam Constitutional: Appearance: She is well-developed. HENT: Head: Normocephalic and atraumatic. Eyes: Extraocular Movements: Extraocular movements intact. Cardiovascular: Rate and Rhythm: Normal rate and regular rhythm. Pulmonary: Effort: Pulmonary effort is normal. Breath sounds: Normal breath sounds. Abdominal: General: Bowel sounds are normal. There is no distension. Palpations: Abdomen is soft. Tenderness: There is no abdominal tenderness. Musculoskeletal: General: No deformity. Cervical back: Neck supple. Comments: Increased purulent drainage from incision. Skin: General: Skin is warm and dry. Neurological: Mental Status: She is alert and oriented to person, place, and time. Medical Decision Makin. Drainage from surgical site DDX: infectious process vs other Plan: Neurosurgery consult, labs, further workup/ dispo per consultants. Results: Labs Reviewed CBC W AUTO DIFFERENTIAL - Abnormal; Notable for the following components: Result Value WBC 11.5 (*) Neutrophils % 71.9 (*) Lymphocytes % 17.4 (*) Neutrophils Absolute 8.25 (*) All other components within normal limits COMPREHENSIVE METABOLIC PANEL - Abnormal; Notable for the following components: Glucose 171 (*) Calcium 10.3 (*) Protein Total 9.0 (*) BUN/Creatinine Ratio 28 (*) Albumin/Globulin Ratio 0.7 (*) All other components within normal limits PT-INR SL[facility] - Abnormal; Notable for the following components: PT 17.4 (*) All other components within normal limits CULTURE BLOOD - Normal CULTURE BLOOD - Normal No orders to display ED course: The patient's Oxygen Saturation Monitor was interpreted by me. The reading was 97%. The patient wason RA at the time of the reading. This is interpreted as normal. 2:00 PM- PUNEET to Dr. Khalil Consult Yes Procedure done at this time No Ultrasound done at this time No Orders Placed This Encounter ??? CULTURE BLOOD ??? CBC W AUTO DIFFERENTIAL ??? COMPREHENSIVE METABOLIC PANEL ??? PT-INR [facility] ??? clindamycin (CLEOCIN) 300 MG capsule Medications - No data to display Clinical Impression: 1. History of laminectomy 2. Problem involving surgical incision 3. Other postprocedural complications and disorders of nervous system 4. Other specified postprocedural states 5. Infection following a procedure, other surgical site, initial encounter Disposition: Pending By signing my name below, I, Taylor Quarles, attest that this documentation has been prepared under the direction and in the presence of Dr. Solitario. Signed: Kehinde Spencer. I, Dr. Solitario, personally performed the services described in this documentation. All medical record entries made by the scribe were at my direction and in my presence. I have reviewed the chart and agree that the record reflects my personal performance and is accurate and complete. documented in this encounter Plan of Treatment Not on file documented as of this encounter Procedures Procedure Name Priority Date/Time Associated Diagnosis Comments CULTURE BLOOD Timed 10/06/2021 4:48 PM CDT PT-INR [facility] STAT 10/06/2021 2:48 PM CDT CULTURE BLOOD Timed 10/06/2021 2:48 PM CDT CBC W AUTO DIFFERENTIAL STAT 10/06/2021 2:48 PM CDT COMPREHENSIVE METABOLIC PANEL STAT 10/06/2021 2:48 PM CDT documented in this encounter Results * CULTURE BLOOD (10/06/2021 4:48 PM CDT) Culture No growth day 5 TERRANCE 10/11/2021 7:02 PM CDT [facility] MICROBIOLOGY Blood PERIPHERAL BLOOD / Unknown Venipuncture / Unknown 10/06/2021 4:48 PM CDT 10/06/2021 4:50 PM CDT Epi Solitario MD LAB - MICROBIOLOGY O RDERABLES [facility] MICROBIOLOGY [address] [place] [address], [facility] [phone] * CULTURE BLOOD (10/06/2021 2:48 PM CDT) Pathologist [facility] Culture No growth day 5 TERRANCE 10/11/2021 7:02 PM CDT [facility] MICROBIOLOGY Blood PERIPHERAL BLOOD / Unknown Venipuncture / Unknown 10/06/2021 2:48 PM CDT 10/06/2021 3:00 PM CDT Epi Solitario MD LAB - MICROBIOLOGY O [place] Performing Organization Address [facility] Co de Phone Number [facility] MICROBIOLOGY [address] [place] [address], [facility] [phone] * (ABNORMAL) PT-INR [facility] (10/06/2021 2:48 PM CDT) [facility] PT 17.4(H) 12.1 - 14.8 Seconds 10/06/2021 3:[address] [facility]ORY HOSPITAL INR 1.4 See Comment 10/06/2021 3:[address] [facility] LABOR[facility]ORY HOSPITAL Comment:The suggested therap eutic range for standard coumadin (warfarin) therapy is an INR of 2.0-3.0. For high-risk patients (Mechanical Mitral Valve Prosthesis, etc.), the suggested prophylactic therapeutic range is an INR of 2.5-3.5. Blood BLOOD SPECIMEN / Unknown Venipuncture / Unknown 10/06/2021 2:48 PM CDT 10/06/2021 3:05 PM CDT Epi Solitario MD LAB - COAGULATION OR DERABLES Performing Organization Address City/[facility]/ZIP Co de Phone Number [facility] [address] [place] [address], [place] [phone] * (ABNORMAL) COMPREHENSIVE METABOLIC PANEL (10/06/2021 2:48 PM CDT) Pathologist [facility] BUN 19 7 - 26 mg/dL 10/06/2021 3:30 PM [facility] Creatinine 0.69 0.56 - 0.96 mg/dL 10/06/2021 3:30 PM [facility] Sodium 138 136 - 145 mmol/L 10/06/2021 3:30 PM [facility] Potassium 4.2 3.5 - 4.5 mmol/L 10/06/2021 3:30 PM [facility] Chloride 101 98 - 107 mmol/L 10/06/2021 3:30 PM [facility] CO2 27 22 - 29 mmol/L 10/06/2021 3:30 PM [facility] Glucose 171(H) 70 - 115 mg/dL 10/06/2021 3:30 PM [facility] Calcium 10.3(H) 8.4 - 10.2 mg/dL 10/06/2021 3:30 PM [facility] Protein Total 9.0(H) 6.0 - 8.3 g/dL 10/06/2021 3:30 PM [facility] Albumin 3.8 3.4 - 5.0 g/dL 10/06/2021 3:30 PM [facility] Bilirubin Total 0.5 0.2 - 1.2 mg/dL 10/06/2021 3:30 PM [facility] Alkaline Phosphatase 86 40 - 150 U/L 10/06/2021 3:30 PM [facility] ALT 19 5 - 55 U/L 10/06/2021 3:30 PM [facility] AST 17 5 - 34 U/L 10/06/2021 3:30 PM [facility] Anion Gap 14 8 - 18 10/06/2021 3:30 PM [facility] BUN/Creatinine Ratio 28(H) 7 - 23 10/06/2021 3:30 PM [facility] Osmolality Calculated 292 270 - 300 mOsm/kg 10/06/2021 3:30 PM [facility] Albumin/Globulin Ratio 0.7(L) 1.1 - 2.3 10/06/2021 3:30 PM [facility] eGFR by CKD-EPI >90 >=90 mL/min/1.7 3 m2 10/06/2021 3:30 PM [facility] Blood BLOOD SPECIMEN / Unknown Venipuncture / Unknown 10/06/2021 2:48 PM CDT 10/06/2021 3:05 PM CDT Epi Solitario MD LAB - CHEMISTRY ANGEL Herrera Organization Address City/State/ZIP Co de Phone Number [facility] [address] [place] [address], [facility] [phone] * (ABNORMAL) CBC W AUTO DIFFERENTIAL (10/06/2021 2:48 PM CDT) WBC 11.5(H) 3.5 - 10.5 10? 3 /uL 10/06/2021 3:11 PM [facility] RBC 4.69 3.80 - 5.20 10? 6 /uL 10/06/2021 3:11 PM [facility] Hemoglobin 14.1 12.0 - 15.6 g/dL 10/06/2021 3:11 PM [facility] Hematocrit 43.5 35.0 - 45.0 % 10/06/2021 3:11 PM [facility] MCV 92.8 80.7 - 98.3 fL 10/06/2021 3:11 PM [facility] MCH 30.1 26.7 - 34.0 pg 10/06/2021 3:11 PM [facility] MCHC 32.4 30.8 - 35.9 g/dL 10/06/2021 3:11 PM [facility] Platelet Count 334 150 - 400 10? 3 /uL 10/06/2021 3:11 PM [facility] RDW-SD 46.9 36.0 - 50.0 fL 10/06/2021 3:11 PM [facility] RDW-CV 14.0 11.2 - 14.8 % 10/06/2021 3:11 PM [facility] MPV 9.5 9.4 - 12.9 fL 10/06/2021 3:11 PM [facility] nRBC Absolute 0.00 0 10? 3 /uL 10/06/2021 3:11 PM [facility] nRBC Auto 0.0 0 /100 WBC 10/06/2021 3:11 PM [facility] Neutrophils % 71.9(H) 35.0 - 70.0 % 10/06/2021 3:11 PM [facility] Lymphocytes % 17.4(L) 20.0 - 43.0 % 10/06/2021 3:11 PM [facility] Monocytes % 6.4 5.0 - 13.0 % 10/06/2021 3:11 PM [facility] Eosinophils % 3.7 0.0 - 6.0 % 10/06/2021 3:11 PM [facility] Basophil % 0.3 0.0 - 2.0 % 10/06/2021 3:11 PM [facility] Neutrophils Absolute 8.25(H) 1.60 - 7.00 10? 3 /uL 10/06/2021 3:11 PM [facility] Lymphocyte Absolute 2.00 1.10 - 3.90 10? 3 /uL 10/06/2021 3:11 PM [facility] Monocytes Absolute 0.73 0.26 - 1.07 10? 3 /uL 10/06/2021 3:11 PM [facility] Eosinophils Absolute 0.42 0.00 - 0.47 10? 3 /uL 10/06/2021 3:11 PM [facility] Basophils Absolute 0.03 0.00 - 0.08 10? 3 /uL 10/06/2021 3:11 PM [facility] Immature Granulocytes % 0.3 0.0 - 1.0 % 10/06/2021 3:11 PM [facility] Immature Granulocytes Absolute 0.04 10/06/2021 3:11 PM [facility] Blood BLOOD SPECIMEN / Unknown Venipuncture / Unknown 10/06/2021 2:48 PM CDT 10/06/2021 3:04 PM T Epi Solitario MD LAB - HEMATOLOGY ORD ERABLES [facility] [address] [place] [address], [facility] [phone] documented in this encounter Visit Diagnoses Diagnosis History of laminectomy Other postprocedural status Problem involving surgical incision Other postprocedural complications and disorders of nervous system Other specified postprocedural states Infection following a procedure, other surgical site, initial encounter documented in this encounter Care Teams Television Production Assistant Relationship Specialty Start Date End Date Justen Gale MD PCP - General 07/05/21 documented as of this encounter
--- OUTSIDE RECORDS SUMMARY | 2024-04-26 02:33 | XMS_ITS | Encounter Summary ---
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 Was hospitalized for UTI/sepsis. Pain stimulator was colonized and battery pack was surgically removed while inpatient. 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 * Auth/Cert Specialty Diagnoses / Procedures Referred By Contac t Referred To Contact Referral ID Status Reason Start Date Expiration Date Visits Re quested Visits Authorized [id number] 1 1 Encounter Details Date Type Department Care Team (Late st Contact Info) Description 11/11/2021 9:48 PM CDT - 11/16/2021 6:47 PM CDT Hospital Encounter SL 8S ACUTE [address] [place] [address] Roger Snowden MD [address] [facility] [place] [address] Tima Cardenas MD [address] [facility] DIV [place] [address] Aly Perkins III, MD [address] [place] [address] Brian Bravo MD [address] [facility] [address] DIV OF [facility] [place] [address] Mckenzie Johnston MD [address] [place] [address] Internal Medicine Discharge Disposition: Home Health Care Svc Social History Tobacco Use Types Packs/Day Years [...] Sign Reading Time Taken Comments Blood Pressure 154/95 11/16/2021 4:35 PM CDT Pulse 96 11/16/2021 4:35 PM CDT Temperature 36.7 ??C (98 ??F) 11/16/2021 4:35 PM CDT Respiratory Rate 20 11/16/2021 4:35 PM CDT Oxygen Saturation 96% 11/16/2021 4:35 PM CDT Inhaled Oxygen Concentration - - Weight 129.3 kg (285 lb) 11/11/2021 4:04 PM CDT Height 154.9 cm (5' 1 ) 11/11/2021 4:04 PM CDT Body Mass Index 53.85 11/11/2021 4:04 PM CDT documented in this encounter Functional [...] 11/16/2021 documented as of this encounter Discharge Summaries * Mckenzie Johnston MD - 11/16/2021 3:32 PM CDT Images from the original note were not included. Karly Marques [id number] 66 year old 1955 Admit date: 11/11/2021 Discharge date: 11/16/2021 Admitting Physician: Brian Bravo MD Discharge Physician: Mckenzie Johnston MD Present on Admission: ??? Multiple subsegmental pulmonary emboli without acute cor pulmonale ??? Essential hypertension ??? Type 2 diabetes mellitus without complication ??? Wound infection complicating hardware Discharge Diagnoses: superficial thrombous right arm Admission Condition: stable Discharged Condition: stable Hospital Course: Karly Marques is a 66 year old female with past medical history of breast cancer s/p mastectomy, recurrent DVT/PE, T2DM, RLS with chronic back pain who had T8-T9 laminectomy withspinal stimulator placed in August 2021 with subsequent Ecoli infection of the area. She had stimulator removed during early October 2021 admission but with retention of leads. She is on IV ertapenum 1g qday until 11/30 per ID due to many antibiotic allergies. She presented due to right arm pain and shortness of breath and was found to have a suspected superficial clot around her PICC line. Her PICC Linewas removed and a midline was placed to complete her abx course. A CTA chest was negative for PE. During this stay her SOB improved, her arm pain improved. Her sutures from her stimulator removal site were removed by NSGY on 11/16. Her blood glucose level ran around 130-190 while admitted and her Lantus and Humalog doses were adjusted on discharge to prevent hypoglycemia with instructions on how to increase back to home dose below. Her HHC orders were resumed at discharge. Consults: Neurosurgery Pending Labs and Studies: none Discharge Communication: Patient's hospital course was conveyed to daughter Significant Diagnostic Studies: CBC: Recent Labs Lab Units 11/16/21 1126 11/13/21 0107 11/12/21 0336 WBC 10??3/uL 8.1 9.0 11.1* RBC 10??6/uL 4.09 3.87 4.08 HGB g/dL 11.8* 11.3* 11.8* HCT % 37.7 35.4 37.4 BMP: Recent Labs Lab Units 11/16/21 1126 11/13/21 0658 11/11/21 2238 NA mmol/L 136 138 138 CL mmol/L 100 102 102 CO2 mmol/L 24 28 23 BUN mg/dL 13 13 15 CREATININE mg/dL 0.70 0.66 0.79 CALCIUM mg/dL 9.9 9.1 9.7 Magnesium: No results for input(s): MG in the last 168 hours. Phosphorus: No results for input(s): PHOS in the last 168 hours. Coagulation: Recent Labs Lab Units 11/13/21 0107 11/12/21 0336 PT Seconds 15.2* 18.4* INR 1.2 1.6 Endocrine: No results for input(s): TSH, A1C in the last 168 hours. LFTs: Recent Labs Lab Units 11/16/21 1126 11/11/21 2238 AST U/L 16 13 ALT U/L 15 17 TBILI mg/dL 0.4 0.4 ALB g/dL 3.0* 3.1* XR CHEST 2VW Result Date: 11/11/2021 FINDINGS/IMPRESSION: Lines: *Right upper terminate PICC terminates in the SVC. *Electronic device superimposes thoracic spine with inferior approach lead. There is mild vascular congestion with bibasilar atelectasis. There is no focal consolidation, pleural effusion, or pneumothorax. The cardiomediastinal silhouette is normal. The visible bony thorax is intact. Report dictated by David Charlton MD, PhD (residential sales consultant). I, Dr. VI BELL have personally reviewed and interpreted thisexamination/study. This report was electronically signed by VI BELL on 11/11/2021 11:[address] ANGIO CHEST PULM EMBOLISM Result Date: 11/12/2021 Impression: 1.No pulmonary embolism. Apparent ill-defined high density filling defect in the left upper lobe pulmonary artery is likely artifactual. 2.Multiple solid nodules in the left lower lobe nodule to 4 mm are indeterminant and new since 04/20/2017, possibly representing infectious etiology. 3.Trace left pleural effusion. 4.Multiple bilateral subcentimeter, partially calcified thyroid nodules. Consider further evaluation with nonemergent ultrasound. 5.Moderate soft tissue thickening alongthe spinal stimulator wires may represent an infection. [...] This report was electronically signed by VI BLEL on 11/12/2021 8:59 AM . Discharge Exam: Blood pressure 137/76, pulse 89, temperature 97.8 ??F (36.6 ??C), resp. rate 20, height 1.549 m (5'1 ), weight 129.3 kg (285 lb), SpO2 95 %, not currently . GEN: alert, in NAD CHEST: Clear to auscultation bilaterally HEART: Regular rate and rhythm, Nl S1 and S2 No gallops. GI: Abdomen soft and non tender, non-distended, +BS EXT: No edema. PSYCH: Alert and oriented to person place time and situation. Good mood, appropriate affect. Disposition: Home Patient Instructions: Medication List START taking these medications acetaminophen 500 MG tablet Commonly known as: Tylenol Take 1 (one) tablet by mouth every 8 hours as needed for Fever or Pain Maximum allowable Acetaminophen amount = 4 Grams (4000 mg) / 24 hours. oxyCODONE-acetaminophen 10-325 MG tablet Commonly known as: Percocet Take 1 (one) tablet by mouth 2 times daily as needed CHANGE how you take these medications * B-D ULTRAFINE III SHORT PEN 31G X 8 MM needle Generic drug: insulin pen needle What changed: ?? Another medication with the same name was added. Make sure you understand how and when to take each. ?? Another medication with the same name was changed. Make sure you understand how and when to takeeach. * TechLite Pen [place] 32G X 4 MM Misc Generic drug: Insulin Pen Needle Use 1 Each 4 times daily What changed: You were already taking a medication with the same name, and this prescription was added. Make sure you understand how and when to take each. * B-D ULTRAFINE III SHORT PEN 31G X 8 MM needle Generic drug: insulin pen needle 4 times daily What changed: See the new instructions. HumaLOG KwikPen 100 UNIT/ML pen Generic drug: insulin lispro Inject 4 (four) Units subcutaneously 3 times daily before meals for 30 days What changed: See the new instructions. Lantus SoloStar pen Generic drug: insulin glargine Inject 10 (ten) Units subcutaneously once daily for 30 days What changed: See the new instructions. * This list has 3 medication(s) that are the same as other medications prescribed for you. Read thedirections carefully, and ask your doctor or other care provider to review them with you. CONTINUE taking these medications amitriptyline 25 MG tablet Commonly known as: Elavil ertapenem 1,000 mg in 0.9% NaCl IV 0.9 % 50 mL 1,000 (one thousand) mg by Intravenous route every 24 hours for 24 days exemestane 25 MG tablet Commonly known as: Aromasin Take 25 mg by mouth DAILY naloxone HCl 4 MG/0.1ML nasal spray Commonly known as: Narcan * OneTouch Delica Lancets 33G Misc * ONETOUCH DELICA PLUS 33G EXTRA FINE LANCET OneTouch Ultra test strip Generic drug: blood glucose rOPINIRole 5 MG tablet Commonly known as: Requip Xarelto 10 MG tablet Generic drug: rivaroxaban Take 20 mg by mouth daily with dinner. * This list has 2 medication(s) that are the same as other medications prescribed for you. Read thedirections carefully, and ask your doctor or other care provider to review them with you. STOP taking these medications enoxaparin 40 MG/0.4ML injection Commonly known as: Lovenox HYDROcodone-acetaminophen 7.5-325 MG tablet Commonly known as: [place] oxybutynin 5 MG tablet Commonly known as: Ditropan oxyCODONE (immediate release) 10 MG tablet Commonly known as: Roxicodone Where to Get Your Medications These medications were sent to [facility] - [address] [address] [address] [facility] [id number] ?? B-D ULTRAFINE III SHORT PEN 31G X 8 MM needle ?? HumaLOG KwikPen 100 UNIT/ML pen ?? Lantus SoloStar pen ?? oxyCODONE-acetaminophen 10-325 MG tablet ?? TechLite Pen [place] 32G X 4 MM Misc You can get these medications from any pharmacy You don't need a prescription for these medications ?? acetaminophen 500 MG tablet Contact information for after-discharge group home [facility] . Service: Home Health Services Contact information: [place] [address] [place] . Service: Home Health Services Contact information: [address] [facility] [address] Discharge Instructions During your hospitalization your blood glucose levels were doing well on 10units of Lantus daily and 4u of humalog before each meal. I have decreased your home doses to match this to prevent you getting low blood sugar at home. Please check your sugars at home and if your sugars at home are runninggreater than 250 on this regimen please call your PCP for instructions. If your home sugars are runn ing greater than 300 on this regimen please resume your prior regimen and let your PCP know. Signed: Mckenzie Johnston MD 11/16/2021 Time spent on discharge: 60 minutes. Time was spent on preparation of discharge records, prescriptions, counseling patient, working withsocial work and nursing, discussion with family. documented in this encounter Discharge Instructions * Discharge Instructions* Mckenzie Johnston MD - 11/16/2021 3:32 PM CDT During your hospitalization your blood glucose levels were doing well on 10units of Lantus daily and 4u of humalog before each meal. I have decreased your home doses to match this to prevent you getting low blood sugar at home. Please check your sugars at home and if your sugars at home are runninggreater than 250 on this regimen please call your PCP for instructions. If your home sugars are runn ing greater than 300 on this regimen please resume your prior regimen and let your PCP know. documented in this encounter Medications at Time [...] USE 6 TIMES DAILY DIRECTED 06/24/2021 11/24/2021 ertapenem 1,000 mg in 0.9% NaCl IV 0.9 % 50 mL 1,000 (one thousand) mg by Intravenous route every 24 hours for 24 days 24 Each 11/06/2021 11/30/2021 HUMALOG KWIKPEN 100 UNIT/ML pen Inject 4 (four) Units subcutaneously 3 times daily before meals for 30 days 3.6 mL 11/16/2021 12/16/2021 Insulin Pen Needle (TECHLITE PEN NEEDLES) 32G X 4 MM MISC Use 1 Each 4 times daily 100 Each 3 11/16/2021 11/24/2021 LANTUS SOLOSTAR pen Inject 10 (ten) Units subcutaneously once daily for 30 days 3 mL 11/16/2021 12/16/2021 naloxone HCl (NARCAN) 4 MG/0.1ML nasal spray as needed 05/13/2021 04/20/2023 NYSTOP 811688 UNIT/GM powder APPLY TO THE AFFECTED AREA THREE TIMES DAILY FOR 14 DAYS 11/09/2021 04/04/2022 OneTouch Delica Lancets 33G MISC Use 4 times daily 03/09/20212021 oxyCODONE-acetaminop hen (PERCOCET) 10-325 MG tablet Take 1 (one) tablet by mouth 2 times daily as needed 6 tablet 11/16/2021 11/24/2021 pantoprazole EC (PROTONIX) 40 MG tablet Take 40 mg by mouth once daily 11/09/2021 04/04/2022 rivaroxaban (XARELTO) 10 MG tablet Take 20 mg by mouth daily with dinner. 04/20/2017 11/24/2021 tiZANidine (ZANAFLEX) 4 MG tablet 09/16/2021 04/04/2022 XARELTO 20 MG tablet 11/08/2021 023 documented as of this encounter Progress Notes * Compa Woodward - 11/16/2021 6:29 PM CDT Chaplain Chatman visited with pt. She is hopeful to go home soon. I offered reflective listening as she processed the trials she has faced. She appreciates the communion visits. Pt spoke about waiting for a midline and being nervous about that as she had a problem with her pic line and had to return to the hospital. I offered her ideas for talking with staff about her worries and ask what to look for. Also helped pt recognize her own voice and ability to know that something isn't right and get herself to the hospital. 843/01 Compa Woodward 11/16/2021 6:33 PM * Jaziel Navarro CPhT - 11/16/2021 4:59 PM CDT MEDICATION TO BEDSIDE DELIVERY: COMPLETE Medication to Bedside delivery was completed for Karly Marques. ??? A total of 2 prescriptions were delivered to the patient for discharge. ??? Medications were given to NURSE () ??? This delivery included a controlled substance: NO ??? This delivery included medication that should be stored in the fridge: YES, given to Thank you for allowing the outpatient pharmacy to participate in the care of Karly Marques. If you have any questions, please contact the outpatient pharmacy at [phone]. Jaziel Navarro CPhT [facility] at [address], [address] Floor [place], [place] [address] Hours of Operation Monday - Monday: 8:00am to 6:00pm Monday: 9:00am to 1:00pm Epic: [facility] *Ensure the patient and clinic's nearby ZIP codes box is unchecked* * Dannielle Rivera RN - 11/16/2021 2:59 PM CDT Case management continues to follow for needs at discharge. Patient to have mid line placed and discharge to home. Family will pick patient up at discharge. [facility] notified of patient discharge.[facility] notified of discharge for stat of care on Monday. Per patient she has supplies and antibiotics at home. Patient aware of [facility] and [facility] Contact numbers. No further CM needs at this time. Dannielle Rivera RN 11/16/2021 3:03 PM [phone] * Dannielle Villafuerte PT - 11/16/2021 11:10 AM CDT [facility] Physical Medicine and Rehabilitation PhysicalTherapy Progress Note Patient: Karly Marques Med Record Number: [id number] Date of : 1955 Age: [age] year old Face Mask: procedure mask Tech: n/a Discharge Recommendation: Patient will benefit from home health PT. Subjective: I'd like to be able to walk in the [place]avez today Patient currently using Wheeled Walker and has equipment at home. No equipment needs if d/c home. Mental Status: patient is alert, oriented x 3, cooperative At start of therapy session, patient found in bed. Pain: Patient has 3/10 pain in back I had pain meds about an hour ago Follow-up for pain: No follow-up for pain indicated and patient agreed to proceed with treatment Weight Bearing Status: no restrictions Mobility: Rolling: not tested Supine to Sit:Stand By Assist with HOB elevated Sit to Supine: not tested Sit to Stand:Stand By Assist from bed; SBA from toilet Bed to Chair: Stand By Assist using wheeled walker; ;SBA to/from toilet using grab bars Gait: Device:Wheeled Walker Assistance: Stand By Assist Distance: 10 feet x 1; 100 feet x 2 Deviations: decreased andra, wide DEYSI with increased lateral sway Balance: Static Sitting: good Dynamic sitting: good Static Standing: good with walker support Dynamic Standing: fair Stairs : not tested Vitals: (*Assess the 3 levels of oxygen saturations both for room air and 02 unless rest on room air is 88% or less). Rest BP: HR: 86 Sp02 Sp02 97% Room Air L O2 Ex/Gait/Activity Without 02 BP: HR: 99 Sp02 99% Room Air Observations: no distress noted; on RA throughout session Activity Tolerance: Patient's activity tolerance: good Treatment/therapeutic Exercise: instruction in bilateral LE AROM exercises- ankle pumps, knee extension, seated march, hip ab/adduction; transfer training, gait training EDUCATION: While performing PT, Patient was instructed in:Functional mobility training/weight bearing status, Safety awareness/fall precaution, Home exercise program, Discharge plan and Use of adaptive equipment Patient demonstrated Good understanding of instructions given. GOALS: Short Term Goals: Goal Formation With patient Patient will perform bed mobility with stand by assist Patient will transfer sit to/from stand with stand by assist Patient will ambulate 100 feet with stand by assist and appropriate AD ?? Sustainability Project Manager Goal(s): Patient to be independent with functional mobility and self-care and should be able to safely discharge to prior level of care. Update Treatment Plan: Patient is progressing toward above goals; continue per POC If patient is discharged from the facility, this note serves as a discharge note if further physical therapy visits did not occur. Following therapy session, patient left in patient bedside chair, with call light within reach, with RNJennifer aware and with RN/CP rehab cues written on white board. * Ramon Jacobs MD - 11/16/2021 11:02 AM CDT Suture removal note All sutures present in the patient's right posterior buttock were cut and removed. The area was cleaned before and after suture removal. Ramon Jacobs Resident - Department of Surgery 11/16/2021 11:05 AM * Joann Sow RN - 11/15/2021 10:11 PM CDT Problem: Pain/Discomfort Goal: Patient exhibits [...] found in the flowsheet documentation) Outcome: Progressing * Mckenzie Johnston MD - 11/15/2021 4:10 PM CDT [facility] Medicine Progress Note Karly Marques is a 66 year old female with a history of breast cancer s/p mastectomy, recurrentDVT/PT, T2DM, RLS with chronic back pain s/p T8-T9 laminectomy with spinal stimulator placement in August with subsequent infection in August requiring IV ertapenum and removal of stimulator who came in with right arm pain and found to have superficial clot in area of PICC line. Subjective: Feeling ok, having some tenderness in right buttock in suture site. No cp, no sob, arm pain is improved. Objective: BP 111/62 Pulse 97 Temp 97.3 ??F (36.3 ??C) (Oral) Resp 20 Ht 1.549 m (5' 1 ) Wt 129.3 kg(285 lb) SpO2 95% Physical Exam Alert, no distress Heart rrr Lungs ctabl Abdomen soft and NT Right buttock suture site is c/d/i with no overlying erythema or drainage No pitting edema MEDICATIONS FOR CURRENT ENCOUNTER: SCHEDULED MEDICATIONS: 0.9% NaCl injection 10-40 mL, Intracatheter, q8h acetaminophen (Tylenol) tablet 500 mg, Oral, TID amitriptyline (Elavil) tablet 25 mg, Oral, AT BEDTIME ertapenem (INVanz) 1,000 mg in 0.9% NaCl IV 50 mL IVPB, Intravenous, q24h insulin glargine (Lantus) pen 10 Units, Subcutaneous, QDAY insulin lispro (HumaLOG;ADMelog) 100 UNIT/ML pen 0-6 Units, Subcutaneous, TID WC insulin lispro (HumaLOG;ADMelog) 100 UNIT/ML pen 3 Units, Subcutaneous, TID WC lidocaine PF (Xylocaine MPF) 1 % injection, Intradermal, Once perflutren lipid microsphere (Definity) injection 0.5 mL, Intravenous, intra- Procedure multiple rivaroxaban (Xarelto) tablet 20 mg, Oral, QDAY WITH DINNER rOPINIRole (Requip) tablet 5 mg, Oral, AT BEDTIME CONTINUOUS MEDICATIONS: PRN MEDICATIONS: Or 0.9% NaCl injection 10-40 mL, Intravenous, PRN ALPRAZolam (Xanax) tablet 0.5 mg, Oral, TID PRN dextrose IV 12.5 g, Intravenous, PRN dextrose IV 25 g, Intravenous, PRN glucagon (Glucagen) injection 1 mg, Intramuscular, PRN glucose (Diabetic Use) (Dex4 Glucose) oral liquid, Oral, PRN glucose (Diabetic Use) oral gel, Oral, PRN glucose chew tablet 4 tablet, Oral, PRN hydrOXYzine HCl (Atarax) tablet 25 mg, Oral, 4X/day PRN oxyCODONE-acetaminophen (Percocet) 10-325 MG tablet 1 tablet, Oral, q6h PRN Relevant labs reviewed in Epic Recent Labs Component Name 11/13/21 0107 11/12/21 0336 11/11/218 WBC 9.0 11.1* 13.1* RBC 3.87 4.08 4.58 HGB 11.3* 11.8* 13.2 HCT 35.4 37.4 41.6 MCV 91.5 91.7 90.8 PLTCOUNT 289 296 305 Recent Labs Component Name 11/13/21 0658 11/11/21 2238 10/31/21 1155 POTASSIUM 4.1 4.0 4.1 CO2 28 23 28 BUN 13 15 15 CREATININE 0.66 0.79 0.66 GLUCOSE 155* 213* 291* CALCIUM 9.1 9.7 9.1 Assessment/Plan: RUE superficial clot: - midline to be placed in place of PICC - supportive care Battery infection of neurostimulator now removed: - continue IV ertapenum, end date 11/30 with ID follow up 12/06 - midline to be placed tomorrow prior to dc - NSGY to evaluate site for suture removal today, I discussed over the phone with them this morning Non cardiac CP New nodules on CT PE in LLL: - ekg negative, trop neg - repeat CT chest in 6-12 weeks Itching: - atarax prn H/O recurrent DVT/PET: - continue xarelto T2DM: - basal/bolus insulin RLS: - requip Hx breast CA: - resume exemustane on DC LINDA: - continue xanax Lines: PIV Diet: regular Abx end date: tentatively 11/30 Consults: NSGY DVT prophylaxis: xarelot Code status: Full Disposition:Inpatient for ongoing care Mckenzie Johnston MD [facility] Medicine 11/15/2021 * Jo Andres, PT - 11/15/2021 3:11 PM CDT [facility] Department of Physical Medicine & Rehabilitation Progress Note Patient: Karly Marques Med Record Number: [id number] Date of : 1955 Age: [age] year old 11/15/21 1500 Missed Visit Missed Visit Other (Comment) 11:10- Pt working with OT. 14:58- Pt reports she just got in bed, had benadryl and xanax and requesting to get some rest. Willcontinue to follow. * Dannielle Rivera RN - 11/15/2021 12:32 PM CDT Case Management Initial Assessment Case Management screen completed & Welcome Letter given. Anticipated level of care at discharge: Home Discharge Plans: Discharge will depend on needs and recommendations at discharge. Patient was discharged and 10/30 and readmitted on 11/12 with Rt arm pain and sob. Patient is currently active with [facility] and [facility]. Updates sent to [facility] and [facility]. Patient has boom stick worker services in placeat this time. Prior Level of Functioning: Patient lives with her daughter in a single family home. Patient is able to care for herself with the assistance of her daughter who is her boom stick worker. Patient uses a walker and wheelchair at baseline. Lives with: Daughter Basic Needs Assessment (BNA) Score: 14 Readmission: No Met with patient Discharge Goals and Plans: Verify Family Support (name and phone): Extended Emergency Contact Information Primary Emergency Contact: Jimmie Marques [address]: [address] [place] [address] [place] [address] Relation: Spouse Secondary Emergency Contact: Yunior Velez Mobile Relation: Daughter Patient or sales training representative requests care coordination reach out to family or caregiver listed above regarding discharge planning and at time of discharge? No Anticipated Discharge Date: 11/19/21 Patient/Family provided with list of resources? Unknown Preferred Provider / High Quality Network List given?: Unknown Reason for provider choice: Unknown Transportation at Discharge: Family Transportation to MD appointments: Family Equipment at Home: Equipment At Home: CPAP;Walker-2 Wheeled;Wheelchair-Standard Additional equipment needed at home but does not have: Equipment needs will depend on needs and recommendations at discharge. If no PCP, action taken: PCP verified Pharmacy benefit: Yes Medication affordability concerns: No Hunger Screening: Within the past 12 months, you worried that your food would run out before you got the money to buymore.: Never true Within the past 12 months, the food you bought just didn't last and you didn't have money to get more.: Never true [employer] Resources Provided: Yes - recieved Hospice Plan Administrator Referral: No If patient requires HHC at discharge, he/she requests: Patient is active with [facility]. Updates sentto [facility]. Patient is active with [facility] and updates sent. Will continue to follow. For any questions or needs please contact: [employer] Tender Name/Phone number: Dannielle Rivera RN [phone] * Lexi Santa COTA - 11/15/2021 11:00 AM CDT [facility] Physical Medicine and Rehabilitation Occupational Therapy Progress Note Patient: Karly Marques Med Record Number: [id number] Date of : 1955 Age: [age] year old Face Mask: Therapist wore procedural mask and eye protection during entire treatment session. Tech: n/a Discharge Recommendation: Patient will benefit from home health OT. Patient should be able to return home when medically cleared by physician team. Therapy will continue to treat patient while in hospital. See current amount of assist needed below. Precautions: Subjective: Pt agreeable. At start of therapy session, patient found in bed and with no alarm . Pain: Patient has 4/10 pain in incisional area Follow-up for pain: Yes, Informed NURIS Frias about pain issue Activities of Daily Living Feeding:NT Grooming/Bathing: SBA to wash hands/face at ink Upper Extremity Dressing: Stand By Assist to manage gown Lower Extremity Dressing: Maximal assist to don bilateral socks while seated on EOB; pt states I wear flip flops most of the time. Toileting/Transfers: declined need Mobility: Assist device: Wheeled Walker and gait belt Rolling: not tested Supine to/from Sit:Minimal assist Sit to/from Stand: Minimal assist Bed to Chair: Stand By Assist Room mobility : Stand By Assist Balance: Static Sitting: good Dynamic Sitting: good Static Standing: good Dynamic Standing: good Vitals: SPO2 97% on RA;; HR 94. Activity tolerance: good Cognitive/Perceptual: Alert & orient x 4 with good safety and good command following. Treatment/Therapeutic Exercise: Treatment session this date focused on ADL training Functional transfer training Bed mobility Safety awareness EDUCATION: While performing mobility and self care, Patient was instructed in:Functional mobility training/weight bearing status, Safety awareness/fall precaution and Self care training Presented to patient who demonstrates Good understanding of instructions given. Equipment Issued: none Update Treatment Plan/Goals : Pt continues to benefit from skilled OT to improve independence with activities of daily living, increase strength, endurance, range of motion and decrease pain. Short Term Goals: Goal Formation With patient Patient will perform grooming standing at sink and with minimal assist Patient will perform lower extremity dressing with moderate assist Patient will perform supine to sit with minimal assist Patient will perform bed to chair with stand by assist Patient will tolerate treatment 15 minutes, with fair+ endurance and with minimal pain Fci Goal:Patient to be independent/baseline with functional mobility and self care and be able to safely discharge to prior level of care If patient is discharged from the facility, this note serves as a discharge note if further occupational therapy visits did not occur. Following therapy session, patient left in patient bedside chair, with chair alarm on, with call light within reach and with Altagracia LAWLER aware. * Bijan Dasilva PA - 11/15/2021 7:45 AM CDT Thrombus around PICC line not always indication to remove PICC. She may be at increased risk for thrombus associated with new PICC line. Patient needs less than 4 wks of IV abx, may be better served with a MIDLINE. Andrew Dasilva PA-C / IVR * Altagracia Obregon RN - 11/15/2021 7:45 AM CDT Problem: Pain/Discomfort Goal: Patient exhibits [...] Achieves restful, refreshing sleep pattern. Outcome: Progressing Problem: Activity Tolerance Goal: STG - Pt will demonstrate increased activity tolerance to complete grooming activity Outcome: Progressing Problem: Balance Goal: LTG - Patient will maintain balance to allow for safe mobility Outcome: Progressing * Radha Sanchez RN - 11/15/2021 6:28 AM CDT Problem: Pain/Discomfort Goal: Patient exhibits [...] Pressure) device regimen as prescribed. Outcome: Progressing * Kerry Anaya RN - 11/14/2021 2:38 PM CDT Problem: Pain/Discomfort Goal: Patient exhibits [...] Achieves restful, refreshing sleep pattern. Outcome: Progressing Problem: Activity Tolerance Goal: STG - Pt will demonstrate increased activity tolerance to complete grooming activity Outcome: Progressing Problem: Balance Goal: LTG - Patient will maintain balance to allow for safe mobility Outcome: Progressing * Aly Perkins III, MD - 11/14/2021 9:36 AM CDT [facility] General Medicine Team Daily Progress Note 11/14/2021 9:37 AM Name: Karly Marques (66 year old female) : 1955 Room: [facility] Hospital Day: 2 66 year old female with pmh breast cancer s/p mastectomy, recurrent PE/DVT, DM 2, RLS with chronic back pain s/p T8-9 laminectomy with spinal stimulator placement in August and now s/p recent hospitalization for 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, who presented to [facility] on 11/12/2021 with right arm pain and shortness of breath. CT PE protocol was negative but did show fluid collection aroundlocation of recent neurostimulator battery removal. NSGY consulted and stated that fluid collectionand soft tissue changes are unchanged from prior imaging and to continue IV antibiotics. RUE US done and did note superficial blood clot associated with PICC. PICC line removed. Ordered to be replaced 11/15/2021. NSGY will need to come reassess surgical site and eval for suture removal. Interval Events: NAEO. Reports some discomfort around incision site. No more chest pain. RUE feels better after piccremoved. Still with some tenderness around previous entry site. Objective: Patient Vitals for the past 6 hrs: Temp Pulse Resp BP BP Method 11/14/21 0807 98.1 ??F (36.7 ??C) 93 18 120/73 Automatic 11/14/21 0444 98.1 ??F (36.7 ??C) 93 18 139/59 Automatic Intake/Output Summary (Last 24 hours) at 11/14/2021 0937 Last data filed at 11/14/2021 0231 Gross per 24 hour Intake 0 ml Output 600 ml Net -600 ml General appearance: CF in NAD HEENT: atraumatic, anicteric sclera, Neck: no JVD Chest: CTAB Heart: RRR no MRG Abdomen: soft, non-tender, non-distended, bowel sounds normal Neurological: alert/conversational/FARIAS Extremities: no CCE. RUE with picc and some ttp around site but no erythema/swelling. Skin: warm, dry, no rash Data Review LABS REVIEWED IMAGING REVIEWED Assessment and Plan #RUE pain, d/t superficial blood clot a/w picc line -dc'ed PICC -order IR PICC replacement tomorrow #battery infection a/w neurostimulator s/p removal, with continued fluid collection #fluid collection a/w surgical stie -still with stimulator leads in place -nsgy consulted, no intervention, continue abx -IV ertapenem -will need abx for a total of 4 weeks. ID f/u 12/06. End date 11/30 (may want to see about earlier ID appt prior to stop date) -nsgy o/p appt schedule 11/15. May not need but touch base w nsgy 11/15 to reassess wound and remove sutures. #non cardiac cp #new nodules on CT PE, LLL -ekg ok, trop neg. ttp -tte neg for vegetation. CT scan w/o PE or septic emoboli -spoke with radiology about new lung nodules LLL, inf vs inflammatory, they stated don't have appearance of septic emboli. Can be followed up outpatient with repeat imaging in 6-12 weeks for resolution #itching -atarax #h/o recurrent DVT/PE -xarelto #T2DM -basal/bolus, ssi #RLS -requip #h/o breast CA -on exemustane. Resume at d/c #LINDA -xanax prn Lines: Picc, piv Prophylaxis: GI - none DVT - xarelto Diet: Regular Diet Activity: Activity as tolerated Disposition: Floor F. Everett Perkins MD 11/14/2021 9:37 AM Problem List Essential hypertension POA: Yes Type 2 diabetes mellitus without complication POA: Yes Multiple subsegmental pulmonary emboli without acute cor pulmonale POA: Yes Wound infection complicating hardware POA: Yes * Radha Sanchez RN - 11/14/2021 5:39 AM CDT Problem: Pain/Discomfort Goal: Patient exhibits [...] device regimen as prescribed. Outcome: Progressing Problem: Activity Tolerance Goal: STG - Pt will demonstrate increased activity tolerance to complete grooming activity Outcome: Progressing Problem: Balance Goal: LTG - Patient will maintain balance to allow for safe mobility Outcome: Progressing * Kerry Anaya RN - 11/13/2021 6:21 PM CDT Problem: Pain/Discomfort Goal: Patient exhibits [...] Achieves restful, refreshing sleep pattern. Outcome: Progressing Problem: Activity Tolerance Goal: STG - Pt will demonstrate increased activity tolerance to complete grooming activity Outcome: Progressing Problem: Balance Goal: LTG - Patient will maintain balance to allow for safe mobility Outcome: Progressing * Kerry Anaya RN - 11/13/2021 4:48 PM CDT Heparin gtt d/c'ed 1019hr. RUE PICC line removed by this RN 1630hr per orders. Pt tolerated well. Pt lying supine at this time, scant bleeding at site, VSS, no concerns voiced. * Jo Andres, PT - 11/13/2021 3:52 PM CDT [facility] Physical Medicine and Rehabilitation Physical Therapy Initial Evaluation Note Patient: Karly Marques Med Record Number: [id number] Date of : 1955 Age: [age] year old PPE worn by staff: goggles;mask - procedural PPE worn by patient: gown - patient, clean;socks - clean Discharge Recommendation: Patient will benefit from home health PT. In addition to the 1:1 evaluation of the patient, additional eval time was spent completing the chart review prior to the assessment, completing the multidisciplinary plan of care and education plan post evaluation and communicating results of the eval to other treatment team members. Patient currently using Straight Cane and has equipment at home. Will continue to assess for appropriate AD. Nurse and Occupational Therapy contacted regarding patient status and/or discharge plan. Physician Orders: Evaluation and Treat PRECAUTIONS: Weight Bearing Status: (WBAT) Activity Level: (ambulate with assist) DIAGNOSIS: Patient Active Problem List: Chronic back pain Anxiety and depression Chronic anticoagulation CVA (cerebral vascular accident) Essential hypertension Neuropathy LUL (obstructive sleep apnea) Type 2 diabetes mellitus without complication S/P insertion of spinal cord stimulator Preoperative examination Acute post-operative pain Tachycardia Multiple subsegmental pulmonary emboli without acute cor pulmonale Wound infection complicating hardware Past Medical History: Diagnosis Date ??? Breast cancer ??? Chest pain ??? DVT (deep venous thrombosis) ??? GERD (gastroesophageal reflux disease) ??? LUL (obstructive sleep apnea) w cpap ??? Other pulmonary embolism without acute cor pulmonale ??? rls ??? Type 2 diabetes mellitus without complications SUBJECTIVE: PATIENT GOALS: Home Situation: Type of Residence: Private Residence Lives with:: Daughter Steps to Enter: 3 Home Structure: One Story Bathroom : Tub/Shower Combo Equipment At Home: Chair-Shower;Cane-Straight;Walker-2 Wheeled;Walker-4 Wheeled with Seat;Grab Bars;CPAP Prior Level of Functioning: Mobility: Ambulate-In Home ;With Assistive Device Fallen Within 6 Mos: No Have Help at Home?: Yes, there is help at home now Who assists you at home?: Publicity Agent;Friends/Family How often is assistance provided?: 14/11 Level of Help Sufficient?: Yes Oxygen at Home: No Vision: Corrected with glasses Hearing Exceptions: No impairment Pain Assessment: Pain Rating Score #: 4 Pain Location : Back;Incisional Pain Orientation: Right;Posterior;Lower Follow-up for pain: No follow-up for pain indicated and patient agreed to proceed with treatment OBJECTIVE: At start of therapy session, patient found on edge of bed General Appearance: 66 y/o F seated EOB, NAD LDAs: IV's: Peripheral line Edema: minimal edema noted in right lower extremity and minimal edema noted in left lower extremity Vitals: no s/s of distress on room air Mental Status/Cognition: Level of Consciousness-Adult: Alert;Eyes Open Spontaneously Orientation Level: Oriented X4 Cognition: Follows Commands-Consistent;Processing-Appropriate Following Commands: Follows all commands and directions without difficulty Safety Judgement: Good awareness of safety precautions ROM: RUE: AROM WFL LUE: AROM WFL RLE: AROM WFL LLE: AROM WFL Strength: RUE: WNL LUE: WNL RLE:WNL LLE: deficits noted Tone: RLE: no abnormal tone noted LLE: no abnormal tone noted Coordination: RLE: WNL LLE: WNL Sensation: RUE: intact LUE: intact RLE: intact LLE: diminished light touch sensation Mobility: A gait belt and non-slip socks were used for all out of bed activity this date. Bed Mobility: Rolling: Activity Does Not Occur Supine to Sit: Activity Does Not Occur Sit to Supine: Activity Does Not Occur Transfers: Sit to Stand: Stand By Assist Stand to Sit: Stand By Assist Transfer Device: Gait belt;Walker-2 Wheeled Gait: Weight Bearing Status: (WBAT) Distance Ambulated: 50 FEET Ambulation: Assistive Device: Cane-Straight Ambulation: Level of Assistance: Minimum Assistance Ambulation: Gait Deviations: Andra - Decreased;Heel Strike - Decreased;Lateral trunk lean/sway Balance: Sitting - Static: Good Sitting - Dynamic: Good Standing - Static: Fair + Standing - Dynamic: Fair ACTIVITY TOLERANCE: Patient's activity tolerance: good TREATMENT/INTERVENTIONS: evaluation, transfer training, gait training and balance activities EDUCATION: While performing PT, Patient was instructed in:functional mobility training, safety awareness/fall precautions , home exercise program Presented to patient who demonstrates Good understanding of instructions given. INFORMED CONSENT TO TREATMENT: Plan of care including recommended therapy, goals and frequency, discussed with patient who understands and agrees to proceed. ASSESSMENT: Patient would benefit from additional Physical Therapy sessions to achieve the following functionalgoals to enhance independence. Short Term Goals: Goal Formation With patient Patient will perform bed mobility with stand by assist Patient will transfer sit to/from stand with stand by assist Patient will ambulate 100 feet with stand by assist and appropriate AD Sustainability Project Manager Goal(s): Patient to be independent with functional mobility and self-care and should be able to safely discharge to prior level of care. Equipment Issued: gait belt Plan: Plan: Gait training Transfer training Assistive device training Bed mobility training Balance training Home exercise program training If patient is discharged from the facility, this note serves as a discharge summary if further physical therapy visits did not occur. Refer to filed flowsheet for further details. Following therapy session, patient left in bed. * Leila Womack OT - 11/13/2021 11:08 AM CDT [facility] Physical Medicine and Rehabilitation Occupational Therapy Initial Evaluation Note Patient: Karly Marques Med Record Number: [id number] Date of : 1955 Age: [age] year old Co-Eval with PT 2/2 unknown level of skilled assist PPE worn by staff: goggles;mask - procedural PPE worn by patient: gown - patient, clean;socks - clean Discharge Recommendation: Patient will benefit from home health Occupational Therapy. In addition to the 1:1 evaluation of the patient, additional eval time was spent completing the chart review prior to the assessment, completing the multidisciplinary plan of care and education plan post evaluation and communicating results of the eval to other treatment team members. Nurse and Physical Therapy contacted regarding patient status and/or discharge plan. Physician Orders: Evaluation and Treat Activity Level: Ambulate with Assist DIAGNOSIS: Patient Active Problem List: Chronic back pain Anxiety and depression Chronic anticoagulation CVA (cerebral vascular accident) Essential hypertension Neuropathy LUL (obstructive sleep apnea) Type 2 diabetes mellitus without complication S/P insertion of spinal cord stimulator Preoperative examination Acute post-operative pain Tachycardia Multiple subsegmental pulmonary emboli without acute cor pulmonale Wound infection complicating hardware Past Medical History: Diagnosis Date ??? Breast cancer ??? Chest pain ??? DVT (deep venous thrombosis) ??? GERD (gastroesophageal reflux disease) ??? LUL (obstructive sleep apnea) w cpap ??? Other pulmonary embolism without acute cor pulmonale ??? rls ??? Type 2 diabetes mellitus without complications SUBJECTIVE: Subjective: I feel like I should be okay when I go home; My daughter is my caregiver, and she lives with me PATIENT GOALS: Home Situation: Type of Residence: Private Residence Lives with:: Daughter Steps to Enter: 3 Home Structure: One Story Primary Bedroom: First Floor Primary Bathroom: First Floor Bathroom : Tub/Shower Combo Equipment At Home: Chair-Shower;Cane-Straight;Walker-2 Wheeled;Walker-4 Wheeled with Seat;Grab Bars;CPAP Prior Level of Functioning: Mobility: Ambulate-In Home ;With Assistive Device Fallen Within 6 Mos: No Have Help at Home?: Yes, there is help at home now Who assists you at home?: Publicity Agent;Friends/Family How often is assistance provided?: 14/11 Level of Help Sufficient?: Yes Oxygen at Home: No Activity at Home: Sedentary Vision: Corrected with glasses Hearing Exceptions: No impairment Who manages medications?: self/daughter Pain Assessment: Pain Rating Score #: 4 Pain Location : Back;Incisional Pain Orientation: Right;Posterior;Lower Follow-up for pain: No follow-up for pain indicated and patient agreed to proceed with treatment OBJECTIVE: At start of therapy session, patient found on edge of bed and with no alarm General Appearance: 66 y.o. F seated EOB in NAD LDA: IV's: Peripheral line and PICC Edema: No edema noted Vitals: No s/s or c/o SOB, dizziness, or light-headedness during mobility and tx. Mental Status/Cognition: Level of Consciousness-Adult: Alert;Eyes Open Spontaneously Orientation Level: Oriented X4 Cognition: Follows Commands-Consistent;Processing-Appropriate Attention Span: Appears intact Memory: Appears intact Following Commands: Follows all commands and directions without difficulty Safety Judgement: Good awareness of safety precautions Awareness of Errors: Good awareness of errors made Problem Solving: Able to problem solve independently UE ROM: RUE: AROM WFL LUE: AROM WFL Strength: RUE: WNL LUE: WNL UE Tone RUE: no abnormal tone noted LUE: no abnormal tone noted Coordination: intact serial opposition for bilateral hands UE Proprioception RUE: WFL LUE: WFL UE Sensation RUE: no complaints of numbness or tingling in bilateral upper extremities LUE: no complaints of numbness or tingling in bilateral upper extremities Perception: Inattention/Neglect: Appears intact Initiation: Appears intact Motor Planning: Appears intact Visual/Motor Tracking: Able to track stimulus in all quads w/o difficulty Saccades: WDL Convergence: WDL Visual Shafer: WDL Acuity: Able to read employee name badge without difficulty Mobility: A gait belt and non-slip socks were used for all out of bed activity this date. Bed Mobility: Pt found seated EOB at beginning of session Transfers: Sit to Stand: Stand By Assist Stand to Sit: Stand By Assist Transfer Device: Gait belt;Walker-2 Wheeled Functional Ambulation: Functional mobility of ambulation to sink/bathroom with minimal assist using w/w. Comments: Pt with decreased pace and wide DEYSI throughout mobility Balance: Sitting - Static: Good Sitting - Dynamic: Good Standing - Static: Fair + Standing - Dynamic: Fair + Activities of Daily Living Feeding: Set-up;Stand By Assist to drink from cup with straw while seated EOB, calling for lunch atend of session Oral Facial Hygiene: Declined Bathing: Declined Upper Body Dressing: Minimal Assistance to adjust and manage gown throughout OOB mobility Lower Body Dressing: Maximal Assistance to adjust socks while seated EOB Toileting: Declined Splint Issued/Checked: none ACTIVITY TOLERANCE: Patient's activity tolerance: fair TREATMENT / EDUCATION / INTERVENTIONS: While performing OT, Patient was instructed in:functional mobility training, self-care training, safety awareness/fall precautions , discharge planning, use of call light Presented to patient who demonstrates Fair understanding of instructions given. INFORMED CONSENT TO [...] Goal Formation With patient Patient will perform grooming standing at sink and with minimal assist Patient will perform lower extremity dressing with moderate assist Patient will perform supine to sit with minimal assist Patient will perform bed to chair with stand by assist Patient will tolerate treatment 15 minutes, with fair+ endurance and with minimal pain Sustainability Project Manager Goal(s): Patient to be independent with functional mobility and self-care and should be able to safely discharge to prior level of care. Plan: Plan: ADL training Functional transfer training Functional balance training Endurance training Bed mobility training Safety awareness If patient is discharged from the facility, this note serves as a discharge summary if further occupational therapy visits did not occur. Refer to filed flowsheet for further details. Following therapy session, patient left with call light within reach, with RNKerry aware, with therapy cues visible on white board, seated EOB. Educated on use of call light for patient safety, patient verbalized understanding and was in agreement. All lines, monitors, IV's, equipment in place and intact pre and post visit. Patient was in no discomfort and had no additional needs at conclusion of OT session. * Aly Perkins III, MD - 11/13/2021 8:53 AM CDT [facility] General Medicine Team Daily Progress Note 11/13/2021 8:53 AM Name: Karly Marques (66 year old female) : 1955 Room: [facility] Hospital Day: 1 66 year old female with pmh breast cancer s/p mastectomy, recurrent PE/DVT, DM 2, RLS with chronic back pain s/p T8-9 laminectomy with spinal stimulator placement in August and now s/p recent hospitalization for 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, who presented to [facility] on 11/12/2021 with right arm pain and shortness of breath. CT PE protocol was negative but did show fluid collection aroundlocation of recent neurostimulator battery removal. NSGY consulted and stated that fluid collectionand soft tissue changes are unchanged from prior imaging and to continue IV antibiotics. RUE US done and did note superficial blood clot associated with PICC. Interval Events: NAEO. Reports itching. Reports cp improved some but still present. Still with some pain around PICCsite. Objective: Patient Vitals for the past 6 hrs: Temp Pulse Resp BP BP Method 11/13/21 0730 98.1 ??F (36.7 ??C) 88 16 121/72 -- 11/13/21 0336 -- -- -- 144/72 -- 11/13/21 0335 98.1 ??F (36.7 ??C) 84 18 (!) 146/114 Automatic Intake/Output Summary (Last 24 hours) at 11/13/2021 0853 Last data filed at 11/13/2021 0330 Gross per 24 hour Intake -- Output 300 ml Net -300 ml General appearance: CF in NAD HEENT: atraumatic, anicteric sclera, Neck: no JVD Chest: CTAB Heart: RRR no MRG Abdomen: soft, non-tender, non-distended, bowel sounds normal Neurological: alert/conversational/FARIAS Extremities: no CCE. RUE with picc and some ttp around site but no erythema/swelling. Skin: warm, dry, no rash Data Review LABS REVIEWED IMAGING REVIEWED Assessment and Plan #RUE pain, d/t superficial blood clot a/w picc line -dc heparin gtt -6 hours after remove picc. -resume AC after PICC removal -order replacement picc for monday #battery infection a/w neurostimulator s/p removal, with continued fluid collection #fluid collection a/w surgical stie -still with stimulator leads in place -nsgy consulted, no intervention, continue abx -IV ertapenem -will need abx for a total of 4 weeks. ID f/u 12/06. End date 11/30 (may want to see about earlier ID appt prior to stop date) -nsgy o/p appt schedule 11/15. May not need but touch base w nsgy #non cardiac cp #new nodules on CT PE, LLL -ekg ok, trop neg. ttp -tte neg for vegetation. CT scan w/o PE or septic emoboli -spoke with radiology about new lung nodules LLL, inf vs inflammatory, they stated don't have appearance of septic emboli. Can be followed to resolution #itching -order atarax #h/o recurrent DVT/PE -resume xarelto after picc removal #T2DM -basal/bolus #RLS -requip #h/o breast CA -on exemustane. Resume at d/c #LINDA -xanax prn Lines: Picc, piv Prophylaxis: GI - none DVT - xarelto Diet: Regular Diet Activity: Activity as tolerated Disposition: Floor F. Everett Perkins MD 11/13/2021 8:53 AM Problem List Essential hypertension POA: Yes Type 2 diabetes mellitus without complication POA: Yes Multiple subsegmental pulmonary emboli without acute cor pulmonale POA: Yes Wound infection complicating hardware POA: Yes * Mary Ervin, PT - 11/12/2021 3:10 PM CDT [facility] Department of Physical Medicine & Rehabilitation Progress Note Patient: Karly Marques Med Record Number: [id number] Date of : 1955 Age: [age] year old 11/12/21 1500 Missed Visit Missed Visit (on heparin drip, not therapeutic yet) Will continue to follow. documented in this encounter H&P Notes * Wero Carrion MD - 11/12/2021 3:51 AM CDT HISTORY & PHYSICAL Admit Date: 11/11/2021 9:48 PM Cc: right arm pain and shortness of breath This is a 66 year old white female with hx breast cancer s/p mastectomy, recurrent PE/DVT, DM 2, RLS with chronic back pain s/p T8-9 laminectomy with spinal stimulator placement in August for pain relief which helped to relieve her pain. Then earlier this month she developed infection of the battery site of the stimulator requiring removal of the battery. She was discharged on IV ertapenem based on OR culture E.coli. PICC line was placed. She was discharged 11/06 and just yesterday she noted pain at the site of picc line followed the next day by some dyspnea and mild intermittent sharp, chest pain prompting her to come in for evaluation. No fevers, cough. Some nausea, poor appetite. No vomitingor diarrhea. In the ER she was found to have left lung PE. She was started on IV heparin and is admitted for further care and evaluation. Past History Meds: reviewed in epic and recent dc summary list (Not in a hospital admission) Allergies Allergen [...] Reslizumab Unknown ??? Skin Adhesives Skin Reactions Past Medical History: Diagnosis Date ??? Breast [...] IN THE LOWER LUMBAR REGION Social History Tobacco Use ??? Smoking status: Former Smoker Packs/day: 0.50 Quit date: 12/05/1977 Years since quittin.9 ??? Smokeless tobacco: Never Used Substance Use Topics ??? Alcohol use: No Family History Problem Relation Name Age of Onset ??? Heart Disease Mother ??? Diabetes Mother ??? Cancer Father ??? Hemochromatosis Father ??? Cancer Sister ??? Heart Disease Brother Review of Systems A 10 point comprehensive review of systems was done and all positives and pertinent negatives listed below. Review of Systems Constitutional: Positive for malaise/fatigue. Negative for fever. HENT: Negative for sore throat. Eyes: Negative for blurred vision. Respiratory: Positive for shortness of breath. Negative for cough. Cardiovascular: Positive for chest pain. Gastrointestinal: Positive for nausea. Negative for abdominal pain, diarrhea and vomiting. Genitourinary: Negative for dysuria. Musculoskeletal: Negative for falls. Skin: Negative for rash. Neurological: Positive for dizziness. Negative for loss of consciousness and headaches. Endo/Heme/Allergies: Does not bruise/bleed easily. Psychiatric/Behavioral: The patient is nervous/anxious. Physical Exam Patient Vitals for the past 8 hrs: BP Pulse Resp SpO2 11/12/21 0228 -- 105 -- -- 11/12/21 0200 147/85 100 19 94 % 11/12/21 0100 138/77 105 23 93 % 11/12/21 0000 137/87 105 26 92 % 11/11/21 2300 135/77 (!) 112 (!) 45 98 % 11/11/21 2200 151/76 106 15 97 % No intake or output data in the 24 hours ending 11/12/21 0352 General appearance: alert, cooperative, no distress Head: normocephalic, without trauma Throat: mild dry mucous membrane abnormalities Neck: no masses Lungs: breath sounds normal and symmetric; no rales or wheezes Heart: regular rate and rhythm, normal S1 and S2, without murmurs, gallops or rubs Abdomen: soft without mass, non-tender, with hypoactive bowel sounds Musculoskeletal: no edema - incision on back right c/d/i Neurologic: no gross motor/sensory deficits Skin: no rashes ECG my review: NSR Data Review . Recent Labs Component Name 11/11/21223710/31/21115410/30/21 2100 10/30/21 0533 WBC 13.1* 18.5* 20.5* 20.5* RBC 4.58 4.19 4.07 4.28 HGB 13.2 12.2 12.0 12.5 HCT 41.6 38.2 37.2 39.8 MCV 90.8 91.2 91.4 93.0 MCHC 31.7 31.9 32.3 31.4 PLTCOUNT 305 283 255 298 NEUTPCT 63.3 - 93.0* 82.3* NEUTABS 8.26* - 19.09* 16.83* . Recent Labs Component Name 11/11/21223710/31/21115410/30/21 2100 POTASSIUM 4.0 4.1 4.6* CO2 23 28 25 BUN 15 15 13 CREATININE 0.79 0.66 0.68 GLUCOSE 213* 291* 294* CALCIUM 9.7 9.1 9.0 ALT 17 14 14 ALKPHOS 91 90 74 AST 13 8 9 EGFR 83* >90 >90 CXR my review - right PICC line no pneumonia/effusion Prelim CT angio chest - Eccentric filling defect in the left upper lobar artery with nonopacification of some of the distalsubsegmental arteries (series 5, image 78). Filling defect of a left lingular subsegmental artery (series 5, image 107). Subpleural opacities along the left lingula, some of which appear nodular. Constellation of findings is concerning for septic pulmonary emboli, given clinical history. However, gi ian suboptimal contrast bolus timing and cardiac motion, the filling defects may be artifactual andthe subpleural opacities may represent atelectasis. Recommend correlation with laboratory values and consider follow-up CT PE protocol. Multiple solid nodules in the left lower lobe nodule to 4 mm are indeterminant and new since 04/20/2017. New loculated focus of gas in the medial left lower lobe may represent trace pneumothorax versus bleb (series 6, image 60). Trace left pleural effusion. Multiple bilateral subcentimeter, partially calcified thyroid nodules. Consider further evaluation with nonemergent ultrasound. Moderate soft tissue thickening along the spinal stimulator wires without evidence of rim enhancement. Findings may represent a seroma. . Recent Labs Component Name 11/11/21 2238 11/05/21 1350 TROPONINI <0.010 <0.010 Essential hypertension POA: Yes Type 2 diabetes mellitus without complication POA: Yes Multiple subsegmental pulmonary emboli without acute cor pulmonale POA: Yes Wound infection complicating hardware POA: Yes Impression/plan 1. Acute pulmonary embolism - suspicion for RUE DVT associated with PICC vs LE DVT - was off xarelto for a time during last admission - on IV heparin - checking RUE venous u/s and if positive will need to remove PICC - will also hold exemstane given risk of PE but may need to speak with Oncology regarding mgt 2. Infection battery of spinal stimulator - s/p removal - resume IV antibiotics with meropenem - end date 11/30 - blood cultures pending from today to evaluate possible septic emboli per prelim CT chest. Wbc still trending down from discharge. 3. DM 2 - start lantus/SSI and adjust for optimal control 4. Recurrent PE/DVT - hypercoagulable from hx breast ca and/or exemstane and also immobility related to hospitalizations 5. RLS - resume requip, percocet prn 6. Hx breast cancer 7. Anxiety - provide low dose xanax prn dispo - inpatient documented in this encounter Consult Notes * Sammy Cobb MD - 11/12/2021 12:16 PM CDTAssociated Order(s): IP CONSULT TO NEUROSURGERY Images from the original note were not included. Neurosurgery Consult Note Name: Karly Marques :1955 Date of Admission:11/11/2021 Date of Consult:2:17 PM Reason for consult: concern for spinal stimulator lead infection Consult Requested by: ED HISTORY OF PRESENT ILLNESS (HPI): Patient is a 66 year old female with hx breast cancer s/p mastectomy, recurrent PE/DVT, DM 2, RLS with chronic back pain s/p T8-9 laminectomy with spinal stimulator placement in August who was seen in [facility] ED for concern for spinal cord stimulator lead infection. [facility] after experiencing sudden onset SOB yesterday. Further workup showed including lung CT showed left lung CT. Neurosurgery was consulted due to incidentally found thickening of soft tissue around spinal cord stimulator leads. On our exam, patient is comfortable and only complains of mild SOB. Past Medical History: Diagnosis Date ??? Breast [...] LOWER LUMBAR REGION Current Facility-Administered Medications Medication ??? ALPRAZolam (Xanax) tablet 0.5 mg ??? amitriptyline (Elavil) tablet 25 mg ??? dextrose IV 12.5 g Or ??? dextrose IV 25 g ??? ertapenem (INVanz) 1,000 mg in 0.9% NaCl IV 50 mL IVPB ??? glucagon (Glucagen) injection 1 mg ??? glucose (Diabetic Use) (Dex4 Glucose) oral liquid ??? glucose (Diabetic Use) oral gel ??? glucose chew tablet 4 tablet ??? heparin 100 units/mL bolus from bag ??? heparin 25,000 units in 250 mL (100 units/mL) in 0.45% NaCl ??? insulin glargine (Lantus) pen 15 Units ??? insulin lispro (HumaLOG;ADMelog) 100 UNIT/ML pen 0-6 Units ??? iopamidol (Isovue 370) 76 % contrast ??? lactated ringers infusion ??? oxyCODONE-acetaminophen (Percocet) 10-325 MG tablet 1 tablet ??? rOPINIRole (Requip) tablet 5 mg Current Outpatient Medications Medication ??? amitriptyline (ELAVIL) 25 MG tablet ??? B-D ULTRAFINE III SHORT PEN 31G X 8 MM needle ??? enoxaparin (LOVENOX) 40 MG/0.4ML injection ??? ertapenem 1,000 mg in 0.9% NaCl [...] ??? oxybutynin (DITROPAN) 5 MG tablet ??? oxyCODONE, immediate release, (ROXICODONE) 10 MG tablet ??? rivaroxaban (XARELTO) 10 MG [...] since quittin.9 ??? Smokeless tobacco: Never Used Substance Use Topics ??? Alcohol use: No Family History Problem Relation Name Age of Onset ??? Heart Disease Mother ??? Diabetes Mother ??? Cancer Father ??? Hemochromatosis Father ??? Cancer Sister ??? Heart Disease Brother PHYSICAL EXAM BP 150/89 Pulse 101 Temp 98.5 ??F (36.9 ??C) (Oral) Resp 23 Ht 1.549 m (5' 1 ) Wt 129.3 kg (285 lb) SpO2 (!) 89% General: alert, NAD Neuro: GCS: 15 Wound is CDI, closed with prolene sutures Neuro: Mental status: Alert, attentive, and oriented. Speech is clear and fluent. Cranial nerves: Grossly intact Motor: Muscle bulk and tone are normal. Strength is full bilaterally. Quad Hamstring Tib Ant Gastroc Right 5 5 5 5 Left 5 5 5 5 LABORATORY PT 18.4 PTT: 32.0 WBC: 11.1 HgB: 11.8 Trop: WNL RADIOLOGY CT Chest 11/12/21: Partially visualized spinal stimulator wires terminating in the posterior epidural space at T7-T8.There is moderate soft tissue thickening along the spinal stimulator wires in the soft tissues. There is a focal collection at the soft tissues adjacent to the spinal stimulator in the laminectomy site seen on series 564 measuring 3.[address] C/A/P 10/29/21 Assessment/ Plan: Karly Marques is a 66 year old female with hx breast cancer s/p mastectomy, recurrent PE/DVT, DM 2, RLS with chronic back pain s/p T8-9 laminectomy with spinal stimulator placement in August c/b stimulator battery infection s/p washout and stimulator battery removal on 10/30 who was seen for concern for spinal cord stimulator lead infection. Pt subsequently diagnosed with pulmonary embolism and started on heparin GTT. CT scan reviewed and compared to prior CT from 10/29. Soft tissue thickening and fluid collection are stable. There are no external signs of wound infection. Pt is afebrile. - No acute neurosurgical intervention - Continue IV antibiotics as ordered - Treatment of PE per primary team Case discussed with Dr. Marysol Cobb MD 11/12/2021 12:17 PM documented in this encounter ED Notes * Tima Cardenas MD - 11/11/2021 11:26 PM CDT Emergency Medicine Attending Transition of Care Note Patient was seen as a team with the resident physician, Dr. Norman, who also contributed to this note. Patient signed out to me by Dr. Snowden at 11:26 PM. Briefly, Karly Marques is a 66 year old female is being evaluated for PICC line placed recentlynow with increased pain. ?infection. Also has fatigue and shortness of breath since discharge At this time the patient's condition is Stable. Patient Vitals for the past 6 hrs: Temp Pulse Resp BP BP Method 11/11/21 2200 -- 106 15 151/76 -- 11/11/21 1816 98.5 ??F (36.9 ??C) 82 20 104/79 Automatic ED Course 11:40 PM Patient re-evaluated. Tachycardic with mild hypoxia. Given shortness of breath will obtainCT PE and RUE duplex for concern for DVT at PICC insertion. Patient is on Xarelto. CT PE with possible PE, started on heparin drip. -After discussion with Medicine patient will be admitted to their service for further management ofcare. -I have reviewed the diagnostic findings with the patient and they have had an opportunity to ask me any questions they have about care, diagnosis, and reason for admission. The patient states understanding and agrees to admission. - Patient seen and evaluated, available studies reviewed This patient was evaluated during the COVID-19 pandemic. Clinical Impression: 1. Heart murmur 2. Chest pain, unspecified type 3. SOB (shortness of breath) 4. Arm pain, diffuse, right 5. Dyspnea, unspecified type 6. Multiple subsegmental pulmonary emboli without acute cor pulmonale 7. Tachycardia Disposition: Admit * Roger Snowden MD - 11/11/2021 10:40 PM CDT ED ATTENDING NOTE History: Karly Marques is a 66 year old female with a past medical history of GERD and DVT presenting tot ED c/o Picc Line complications. Patient was hospitalized for UTI/sepsis and was discharged 4 days ago. She notes acute pain at the site of the Picc Line that began last night rated 8/10. The painradiates to her elbow but nowhere else and is constant. She notes that the area of her skin there is warmer but denies any pus or blood. Pt endorses associated SOB and fatigue that worsens with activity and associagted CP that resolves with rest. No other complaints or modifying factors at [...] Housing Stability: Not on file Review of Systems Constitutional: Negative for chills and fever. HENT: Negative for ear discharge, nosebleeds and sore throat. Eyes: Negative for blurred vision. Respiratory: Positive for shortness of breath. Negative for cough and hemoptysis. Cardiovascular: Positive for chest pain. Gastrointestinal: Negative for abdominal pain, heartburn and vomiting. Genitourinary: Negative for dysuria and frequency. Musculoskeletal: Positive for joint pain. Negative for back pain, falls and myalgias. Skin: Negative for rash. Warm around the Picc line Neurological: Negative for tingling and sensory change. Endo/Heme/Allergies: Does not bruise/bleed easily. Psychiatric/Behavioral: Negative for depression and hallucinations. Vitals: 11/11/21 1604 11/11/21 1816 11/11/21 2200 BP: 153/91 104/79 151/76 Pulse: 105 82 106 Resp: 18 20 15 Temp: 98.3 ??F (36.8 ??C) 98.5 ??F (36.9 ??C) SpO2: 98% 100% 97% Weight: 129.3 kg (285 lb) Height: 1.549 m (5' 1 ) Physical Exam Constitutional: General: She is not in acute distress. Appearance: Normal appearance. She is obese. She is not ill-appearing. HENT: Head: Atraumatic. Nose: Nose normal. Mouth/Throat: Mouth: Mucous membranes are moist. Eyes: Extraocular Movements: Extraocular movements intact. Pupils: Pupils are equal, round, and reactive to light. Cardiovascular: Rate and Rhythm: Normal rate and regular rhythm. Heart sounds: No murmur heard. No friction rub. No gallop. Comments: Reproducible right anterior chest wall tenderness to palpation Pulmonary: Breath sounds: Normal breath sounds. No rhonchi. Abdominal: General: Abdomen is flat. Bowel sounds are normal. There is no distension. Palpations: Abdomen is soft. There is no mass. Tenderness: There is no abdominal tenderness. There is no guarding or rebound. Hernia: No hernia is present. Comments: Obese Musculoskeletal: General: No swelling, tenderness, deformity or signs of injury. Normal range of motion. Cervical back: Normal range of motion and neck supple. Comments: Picc inserted RUE, clean dry, no pus, no exudate. Mildly warm to touch but comparable to RLE. Sutures to right lower back, clean dry, intact, no bleeding, no pus, no exudate, no increased warmth to the area. Skin: General: Skin is warm. Findings: No erythema or rash. Neurological: General: No focal deficit present. Mental Status: She is alert and oriented to person, place, and time. Mental status is at baseline. MDM/Impression: Impression: Cellulitis vs PE vs sepsis from pneumonia/UTI vs septicemia vs STEMI vs N-STEMI vs UA vs CHF vs electrolyte abnormality vs aortic dissection vs pneumothorax vs other Plan: Labs, CT PE, other imaging , symptom control, reassess - LABS: Labs Reviewed CBC W AUTO DIFFERENTIAL - Abnormal; Notable for the following components: Result Value WBC 13.1 (*) Neutrophils Absolute 8.26 (*) All other components within normal limits COMPREHENSIVE METABOLIC PANEL - Abnormal; Notable for the following components: Glucose 213 (*) Protein Total 8.8 (*) Albumin 3.1 (*) Albumin/Globulin Ratio 0.5 (*) eGFR by CKD-EPI 83 (*) All other components within normal limits TROPONIN I - Normal B-TYPE NATRIURETIC PEPTIDE - Normal CULTURE BLOOD CULTURE BLOOD URINALYSIS W/MICROSCOPIC NO CULTURE - IMAGING: XR CHEST 2VW (Results Pending) No results found. Orders and Medicine administered during this encounter: Orders Placed This Encounter ??? CULTURE BLOOD ??? XR CHEST 2VW ??? CBC W AUTO DIFFERENTIAL ??? COMPREHENSIVE METABOLIC PANEL ??? TROPONIN I ??? B-TYPE NATRIURETIC PEPTIDE ??? URINALYSIS W/MICROSCOPIC NO CULTURE ??? EKG 12-LEAD ??? lactated ringers IV bolus ??? ondansetron (Zofran) injection 4 mg ??? HYDROmorphone (Dilaudid) injection 0.2 mg Medications lactated ringers IV bolus (1,000 mL Intravenous $ New Bag 11/11/21 4341) ondansetron (Zofran) injection 4 mg (4 mg Intravenous $ Given 11/11/21 2319) HYDROmorphone (Dilaudid) injection 0.2 mg (0.2 mg Intravenous $ Given 11/11/21 2320) ED Course: 11:00 PM: PUNEET to Dr. Cardenas, pending workup. Clinical Impression: 1. Chest pain, unspecified type 2. SOB (shortness of breath) Disposition: PUNEET to Dr. Cardenas By signing my name below, I, Rey Duran, attest that this documentation has been prepared under the direction and in the presence of Dr. Snowden. Signed: Kehinde Le Chi. I, Dr. Snowden, personally performed the services described in this documentation. All medical record entries made by the scribe were at my direction and in my presence. I have reviewed the chart and agree that the record reflects my personal performance and is accurate and complete. * Heaven Connor MD - 11/11/2021 10:38 PM CDT EMERGENCY MEDICINE RESIDENT NOTE History of Present Illness: Karly Marques is a 66 year old female with a PMHx of DM, hx of breast cancer, and DVT/PT on Xarelto who [facility] for concern for PICC line infection. Pain to area began last night without history of trauma to area, but PICC has been pulled on. PICC line pain radiates to elbow. There has been no bleeding or pus to area, but the skin feels warmer to the patient. She recently had urosepsis and had to have the battery back for her stimulator surgically removed. Since then she has beentaking daily abx but cannot recall the name. She has generalized weakness and fatigue since hospital discharge. She has shortness of breath associated with activity as well since discharge. This is as sociated with right chest pain that twinged and also occurs isolated. The chest pain is mid chestwithout radiation or associated locations. The chest pain and shortness of breath resolve with rest. She has some back pain related to her surgical sites since her operations. Past Medical History: Past Medical History: Diagnosis Date ??? Breast cancer ??? Chest pain ??? DVT (deep venous thrombosis) ??? GERD (gastroesophageal reflux disease) ??? LUL (obstructive sleep apnea) w cpap ??? Other pulmonary embolism without acute cor pulmonale ??? rls ??? Type 2 diabetes mellitus without complications Past Surgical History: Past Surgical History: Procedure [...] (ELAVIL) 25 MG tablet at bedtime ??? B-D ULTRAFINE III SHORT PEN 31G X 8 MM needle USE 6 TIMES DAILY DIRECTED ??? enoxaparin (LOVENOX) 40 MG/0.4ML injection Inject 40 mg subcutaneously every 12 hours ??? ertapenem 1,000 mg in 0.9% NaCl IV 0.9 % 50 mL 1,000 (one thousand) mg by Intravenous route every 24 hours for 24 days 24 Each 0 ??? exemestane (AROMASIN) 25 MG tablet Take 25 mg by mouth DAILY ??? HUMALOG KWIKPEN 100 UNIT/ML pen ADMINISTER 22 UNITS BEFORE EACH MEAL. MAX DAILY DOSE OF 120 UNITS ??? HYDROcodone-acetaminophen (NORCO) 7.5-325 MG tablet Take 1 tablet by mouth every 6 hours as needed for Pain ??? insulin pen needle (B-D ULTRAFINE III SHORT PEN) 31G X 8 MM needle USE 6 TIMES DAILY DIRECTED ??? Lancets (ONETOUCH DELICA PLUS 33G EXTRA FINE LANCET) USE FOUR TIMES DAILY ??? LANTUS SOLOSTAR pen ADMINISTER 50 UNITS UNDER THE SKIN EVERY MORNING ??? naloxone HCl (NARCAN) 4 MG/0.1ML nasal spray CALL 911. SPR CONTENTS OF ONE SPRAYER (0.1ML) INTOONE NOSTRIL. REPEAT IN 2-3 MIN IF SYMPTOMS OF OPIOID EMERGENCY PERSIST, ALTERNATE NOSTRILS (Patientnot taking: No sig reported) ??? OneTouch Delica Lancets 33G MISC Use 4 times daily ??? ONETOUCH ULTRA test strip 4 times daily ??? oxybutynin (DITROPAN) 5 MG tablet Take 5 mg by mouth TID. ??? oxyCODONE, immediate release, (ROXICODONE) 10 MG tablet Take 1 (one) tablet by mouth 2 times daily as needed 28 tablet 0 ??? rivaroxaban (XARELTO) 10 MG tablet Take 20 mg by mouth daily with dinner. ??? rOPINIRole (REQUIP) 5 MG tablet TAKE [...] since quittin.9 ??? Smokeless tobacco: Never Used Substance Use Topics ??? Alcohol use: No Family History: Family History Problem Relation Name Age of Onset ??? Heart Disease Mother ??? Diabetes Mother ??? Cancer Father ??? Hemochromatosis Father ??? Cancer Sister ??? Heart Disease Brother Review of Systems (positives in bold, otherwise negative) Constitutional: Endorses chills. Denies Fevers HENT: Denies Congestion, sore throat, dysphagia, changes in hearing Eye: Denies Visual changes, blurry vision, double vision Respiratory: Denies Cough. Endorses shortness of breath Cardiac: Endorses Chest pain. Denies palpitations, orthopnea, PND GI: Denies Nausea, vomiting, diarrhea, constipation, abdominal pain : Denies Dysuria, increased frequency MSK: Denies Swelling, myalgias. Back pain at surgical sites. Skin: Denies Rash, itching Neuro: Denies focal weakness, numbness Psych: Denies Mood changes See above and also HPI, otherwise negative. Physical Exam BP 147/85 Pulse 105 Temp 98.5 ??F (36.9 ??C) (Oral) Resp 19 Ht 1.549 m (5' 1 ) Wt 129.3 kg (285 lb) SpO2 94% General: Alert, no apparent distress, well developed, well nourished female BMI 50+ resting in bed HEENT: normocephalic, atraumatic, neck nontender to palpation Eyes: EOMI, sclera and conjunctiva clear Nose: no rhinorrhea Ears: no otorrhea Mouth: moist, pink, no exudate Neck: No JVD, Supple. Non-tender. No rigidity Back: No midline spinal or CVA tenderness. Sutures to right lower back clean/dry/intact without erythema, pus, exudate, or active bleeding. Cardiac: RRR, normal S1/S2, no murmurs, rubs, gallop. DP and radial pulses palpated Lung: CTAB, no wheezes, rales, or rhonchi; nonlabored breathing, no use of accessory muscles Extremities: No cyanosis. PICC line present to right upper arm without erythema, bleed, exudate, orpus. Surrounding skin was warm but similar to left upper arm when compared bilaterally. Abdomen: Soft, non-tender, non-distended, no guarding, no pulsatile mass appreciated. Normal bowel sounds : Deferred Skin: No rashes/lesions/masses appreciated Neuro: A&Ox3 (name, president, location correct; but thought it was August rather than October), CNII-XII grossly intact, moving all 4 extremities Psych: Appropriate situational affect Medical Decision Making: Clinical Diagnoses: 1. Chest pain 2. Shortness of breath 3. Right arm pain 4. Tachycardia DDx: 1. Cellulitis vs DVT vs PE vs PNA vs UTI vs pneumothorax vs sepsis vs ACS vs CHF vs electrolyte abnormalities vs aortic dissection vs esophageal rupture vs cardiac tamponade vs other Plan: Therapeutic - pain and nausea control Labs - CBC, CMP, PT INR PTT, blood Cx, BNP, troponin, UA, EKG Imaging - CXR, CT PE, venous Duplex US to RUE Consults - none Next steps - evaluate labs and imaging, reasses Studies and Interpretation Pulse Oximetry Interpretation: Saturation: 94% Oxygen Delivery: Room Air Interpretation: No hypoxia at this time Initial EKG: Date and Time: 11-11-21 @ 2239 Rate: 102 bmp Rhythm: sinus [place]: upright Intervals: MI, QRS, QTc not prolonged ST: No ST elevations, depressions, or other signs of ischemia. Impression: Normal EKG with sinus rhythm Imaging: XR CHEST 2VW Final Result EXAMINATION: XR CHEST 2VW, 11/11/2021 5:26 PM [...] by David Charlton MD, PhD (residential sales consultant). I, Dr. VI BELL have personally reviewed and interpreted this examination/study. This report was electronically signed by VI BELL on 11/11/2021 11:[address] ANGIO CHEST PULM EMBOLISM (Results Pending) VAS RIGHT VENOUS DUPLEX UE (Results Pending) Labs: Labs Reviewed CBC W AUTO DIFFERENTIAL - Abnormal; Notable for the following components: Result Value WBC 13.1 (*) Neutrophils Absolute 8.26 (*) All other components within normal limits COMPREHENSIVE METABOLIC PANEL - Abnormal; Notable for the following components: Glucose 213 (*) Protein Total 8.8 (*) Albumin 3.1 (*) Albumin/Globulin Ratio 0.5 (*) eGFR by CKD-EPI 83 (*) All other components within normal limits PT-INR [facility] - Abnormal; Notable for the following components: PT 18.4 (*) All other components within normal limits CBC W AUTO DIFFERENTIAL - Abnormal; Notable for the following components: WBC 11.1 (*) Hemoglobin 11.8 (*) All other components within normal limits TROPONIN I - Normal B-TYPE NATRIURETIC PEPTIDE - Normal PTT [facility] - Normal CULTURE BLOOD CULTURE BLOOD URINALYSIS W/MICROSCOPIC NO CULTURE Procedures: Procedures Interventions: Medications iopamidol (Isovue 370) 76 % contrast (81 mL Intravenous $ Given - Contrast 11/12/21 0038) heparin 25,000 units in 250 mL (100 units/mL) in 0.45% NaCl (1,800 Units/hr Intravenous $ New Bag 11/12/21 7714) heparin 100 units/mL bolus from bag (has no administration in time range) meropenem (Merrem) 1,000 mg in 0.9% NaCl IV 50 mL IVPB (has no administration in time range) ALPRAZolam (Xanax) tablet 0.5 mg (has no administration in time range) glucose (Diabetic Use) (Dex4 Glucose) oral liquid (has no administration in time range) glucose (Diabetic Use) oral gel (has no administration in time range) glucose chew tablet 4 tablet (has no administration in time range) dextrose IV 12.5 g (has no administration in time range) Or dextrose IV 25 g (has no administration in time range) glucagon (Glucagen) injection 1 mg (has no administration in time range) insulin lispro (HumaLOG;ADMelog) 100 UNIT/ML pen 0-6 Units (has no administration in time range) amitriptyline (Elavil) tablet 25 mg (has no administration in time range) rOPINIRole (Requip) tablet 5 mg (has no administration in time range) oxyCODONE-acetaminophen (Percocet) 10-325 MG tablet 1 tablet (has no administration in time range) insulin glargine (Lantus) pen 15 Units (has no administration in time range) lactated ringers infusion (has no administration in time range) lactated ringers IV bolus (0 mL Intravenous Stopped 11/12/21 0020) ondansetron (Zofran) injection 4 mg (4 mg Intravenous $ Given 11/11/21 2319) HYDROmorphone (Dilaudid) injection 0.2 mg (0.2 mg Intravenous $ Given 11/11/21 2320) heparin 100 units/mL bolus from bag (7,000 Units Intravenous Bolus From Bag 11/12/21 0351) ED Course: - I have reviewed triage notes, vitals, available labs and imaging, and assessed the patient. ED Course as of 11/12/21415Nov 12, 20214 VAS RIGHT VENOUS DUPLEX UE [AB] ED Course User Index [AB] Heaven Connor MD Clinical Impressions as of 11/12/21415 Chest pain, unspecified type SOB (shortness of breath) Arm pain, diffuse, right Dyspnea, unspecified type Multiple subsegmental pulmonary emboli without acute cor pulmonale Tachycardia - Patient presents with PICC line pain, chest pain, shortness of breath, and history of DVT/PEs. Workup pending. - I discussed the patient and my findings with the oncoming ED team. Final ED Diagnosis: 1. Chest pain, unspecified type 2. SOB (shortness of breath) 3. Arm pain, diffuse, right 4. Dyspnea, unspecified type 5. Multiple subsegmental pulmonary emboli without acute cor pulmonale 6. Tachycardia Disposition: Dispo pending labs and imaging. Signed out to Dr. Cardenas. Heaven Connor MD Emergency Medicine, PGY-1 Associated attestation - Roger Snowden MD - 11/18/2021 2:35 PM CDT 11/18/2021 14:35 For this patient encounter, I reviewed the resident documentation, procedures (if done), treatment plan, and medical decision making; and I had [id number] time with this patient. * Hannah Franklin RN - 11/11/2021 9:48 PM CDT Bed: AC30 Expected date: Expected time: Means of arrival: Comments: Shelli * Deirdre Duran - 11/11/2021 6:29 PM CDT Unsuccessful blood draw * Bianca Ba - 11/11/2021 6:15 PM CDT Pt waiting, watching tv. * Rosie Hunter - 11/11/2021 4:03 PM CDT Pt in wheelchair for triage [place] hair, black tank top, black&white patterned pants documented in this encounter Miscellaneous Notes * Coding Query - Mckenzie Johnston MD - 11/16/2021 6:47 PM CDT DOCUMENTATION CLARIFICATION REQUEST TO: Dr. Johnston FROM: Janelle ALVA, RN, CDS Email: [email or web address] Please clarify and document if the patient is being treated for NOT septic, had small superficial thrombus around PICC line. Continued on prior abx for prior infection. 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 Wbc still trending down from discharge. - 11/13 IM: #battery infection a/w neurostimulator s/p removal, with continued fluid collection #fluid collection a/w surgical site Risk Factor(s): Wound/hardware infection on IV antibiotics, presence of PICC line Treatment: Neurosurgery consult, IV Ertapenum, midline placed for home IV antibiotic administration Please document your clinical opinion in the progress notes and discharge summary including the definitive and/or presumptive diagnosis, (suspected or probable), related to the above clinical findings. Please include clinical findings supporting your diagnosis. Select Edit, then F2 to respond * Coding Query - Mckenzie Johnston MD - 11/16/2021 6:47 PM CDT DOCUMENTATION CLARIFICATION REQUEST TO: Dr. Johnston FROM: Janelle ALVA, RN, CDS Email: [email or web address] Due to the documentation of acute pulmonary embolism, please clarify if the patient was being evaluated/monitored/treated for NO ACUTE PE. 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 The medical record reflects the following clinical evidence: Clinical Indicators: - CTA: No pulmonary embolism. Apparent ill-defined high density filling defect in the left upper lobe pulmonary artery is likely artifactual. - Hospitalist H&P 11/12: In the ER she was found to have left lung PE; Acute pulmonary embolism;Recurrent PE/DVT - hypercoagulable from hx breast ca and/or exemstane and also immobility related to hospitalizations - Discharge Summary: Present on Admission: Multiple subsegmental pulmonary emboli without acute corpulmonale; A CTA chest was negative for PE. Risk Factor(s): Recurrent DVTs/PEs; presence of PICC line Treatment: IV Heparin, CTA Please document your clinical opinion in the progress notes and discharge summary including the definitive and/or presumptive diagnosis, (suspected or probable), related to the above clinical findings. Please include clinical findings supporting your diagnosis. Select Edit, then F2 to respond documented in this encounter Plan of Treatment Not on file documented as of this encounter Procedures Procedure Name Priority Date/Time Associated Diagnosis Comments GLUCOSE - POINT OF CARE Routine 11/16/2021 4:35 PM CDT URINALYSIS REFLEX TO MICROSCOPIC NO CULTURE Routine 11/16/2021 2:38 PM CDT GLUCOSE - POINT OF CARE Routine 11/16/2021 11:57 AM CDT C-REACTIVE PROTEIN MALDONADO 11/16/2021 11 :26 AM CDT ERYTHROCYTE SEDIMENTATION RATE STAT 11/16/2021 11:26 AM CDT CBC W/O DIFFERENTIAL Routine 11/16/2021 11:26 AM CDT COMPREHENSIVE METABOLIC PANEL Routine 11/16/2021 11:26 AM CDT GLUCOSE - POINT OF CARE Routine 11/16/2021 8:00 AM CDT GLUCOSE - POINT OF CARE Routine 11/15/2021 9:46 PM CDT GLUCOSE - POINT OF CARE Routine 11/15/2021 4:34 PM CDT GLUCOSE - POINT OF CARE Routine 11/15/2021 12:11 PM CDT GLUCOSE - POINT OF CARE Routine 11/15/2021 8:27 AM CDT GLUCOSE - POINT OF CARE Routine 11/14/2021 8:15 PM CDT GLUCOSE - POINT OF CARE Routine 11/14/2021 6:17 PM CDT GLUCOSE - POINT OF CARE Routine 11/14/2021 11:54 AM CDT GLUCOSE - POINT OF CARE Routine 11/14/2021 8:34 AM CDT GLUCOSE - POINT OF CARE Routine 11/14/2021 1:55 AM CDT GLUCOSE - POINT OF CARE Routine 11/13/2021 8:15 PM CDT GLUCOSE - POINT OF CARE Routine 11/13/2021 5:17 PM CDT GLUCOSE - POINT OF CARE Routine 11/13/2021 12:15 PM CDT GLUCOSE - POINT OF CARE Routine 11/13/2021 8:49 AM CDT BASIC METABOLIC PANEL (CALCIUM TOTAL) AM Draw 11/13/2021 6:58 AM CDT PTT [facility] AM Draw 11/13/2021 1:07 AM CDT PT-INR [facility] Routine 11/13/2021 1:07 AM CDT CBC W AUTO DIFFERENTIAL Routine 11/13/2021 1:07 AM CDT PTT [facility] Timed 11/12/2021 6:23 PM CDT GLUCOSE - POINT OF CARE Routine 11/12/2021 6:10 PM CDT ECHO COMPLETE STAT 11/12/2021 4:10 PM CDT Heart murmur GLUCOSE - POINT OF CARE Routine 11/12/2021 1:24 PM CDT PTT [facility] STAT 11/12/2021 12:33 PM CDT PROCALCITONIN LEVEL STAT 11/12/2021 1 2:33 PM CDT VAS RIGHT VENOUS DUPLEX UE STAT 11/12/2021 10:11 AM CDT Arm pain, diffuse, right GLUCOSE - POINT OF CARE Routine 11/12/2021 8:23 AM CDT PTT [facility] STAT 11/12/2021 3:36 AM CDT PT-INR [facility] STAT 11/12/2021 3:36 AM CDT CBC W AUTO DIFFERENTIAL STAT 11/12/2021 3:[address] ANGIO CHEST PULM EMBOLISM STAT 11/12/2021 12:53 AM CDT Chest pain, unspecified type SOB (shortness of breath) CULTURE BLOOD Timed 11/11/2021 10:43 PM CDT TROPONIN I STAT 11/11/2021 10:38 PM CDT CULTURE BLOOD Timed 11/11/2021 10:38 PM CDT CBC W AUTO DIFFERENTIAL STAT 11/11/2021 10:38 PM CDT B-TYPE NATRIURETIC PEPTIDE STAT 11/11/2021 10:38 PM CDT COMPREHENSIVE METABOLIC PANEL STAT 11/11/2021 10:38 PM CDT XR CHEST 2VW STAT 11/11/2021 5:26 PM CDT Chest pain, unspecified type SOB (shortness of breath) EKG 12-LEAD Routine 11/11/2021 5:24 PM CDT Chest pain, unspecified type SOB (shortness of breath) documented in this encounter Results * (ABNORMAL) GLUCOSE - POINT OF CARE (11/16/2021 4:35 PM CDT) Glucose WB/POC 180(H) 70 - 115 mg/dL 11/16/2021 4:37 PM CDT [facility] Specimen Type Cap Fingerstick 2021 4:37 PM CDT [facility] Blood BLOOD SPECIMEN / Unknown 11/16/2021 4:35 PM CDT 11/16/2021 4:36 PM CDT Mckenzie Johnston MD LAB - POINT OF CAR E ORDERABLES [facility] [address] [place] [address] [phone] * (ABNORMAL) URINALYSIS REFLEX TO MICROSCOPIC NO CULTURE (11/16/2021 2:38 PM CDT) Color UA Yellow Straw, Yellow 11/16/2021 2:52 PM [facility] Clarity UA Clear Clear 11/16/2021 2:52 PM T [facility] Specific [place] UA 1.011 1.005 - 1.030 11/16/2021 2:52 PM [facility] pH UA 6.0 5.0 - 8.0 pH 11/16/2021 2:52 PM [facility] Protein UA Negative Negative 11/16/2021 2:52 PM [facility] Glucose UA Negative Negative 11/16/2021 2:52 PM [facility] Ketone UA Negative Negative 11/16/2021 2:52 PM [facility] Bilirubin UA Negative Negative 11/16/2021 2:52 PM [facility] Blood UA 1+(A) Negative 11/16/2021 2:52 PM [facility] Nitrite UA Negative Negative 11/16/2021 2:52 PM [facility] Leukocyte Esterase Negative Negative 11/16/2021 2:52 PM [facility] Urobilinogen UA Negative Negative mg/dL 11/16/2021 2:52 PM [facility] RBC UA 3-5 None Seen, 0-2, 3-5 /HPF 11/16/2021 2:52 PM [facility] WBC UA 0-5 None Seen, 0-5 /HPF 11/16/2021 2:52 PM [facility] Squamous Epithelial Cells UA None Seen None Seen, 0-2, 3-5 /HPF 11/16/2021 2:52 PM [facility] Urine URINE SPECIMEN OBTAINED BY CLEAN CATCH PROCEDURE / Unknown Collection / Unknown 11/16/2021 2:38 PM CDT 11/16/2021 2:42 PM CDT [facility] - 11/16/2021 2:52 PM CDT Mckenzie Johnston MD LAB - URINALYSIS O RDERABLES Performing Organization Address City/[facility]/ZIP Co de Phone Number [facility] [address] [place] [address], [facility] [phone] * (ABNORMAL) GLUCOSE - POINT OF CARE (11/16/2021 11:57 AM CDT) Pathologist [facility] Glucose WB/POC 159(H) 70 - 115 mg/dL 11/16/2021 11:59 AM CDT [facility] Specimen Type Cap Fingerstick 2021 11:59 AM CDT [facility] Blood BLOOD SPECIMEN / Unknown 11/16/2021 11:57 AM CDT 11/16/2021 11:59 AM CDT Mckenzie Johnston MD LAB - POINT OF CAR E ORDERABLES Performing Organization Address [facility]/ZIP Co de Phone Number [address] [address], [facility] [phone] * (ABNORMAL) CBC W/O DIFFERENTIAL (11/16/2021 11:26 AM CDT) [facility] WBC 8.1 3.5 - 10.5 10? 3 /uL 11/16/2021 12:50 PM [facility] RBC 4.09 3.80 - 5.20 10? 6 /uL 11/16/2021 12:50 PM [facility] Hemoglobin 11.8(L) 12.0 - 15.6 g/dL 11/16/2021 12:50 PM [facility] Hematocrit 37.7 35.0 - 45.0 % 11/16/2021 12:50 PM [facility] MCV 92.2 80.7 - 98.3 fL 11/16/2021 12:50 PM T [facility] MCH 28.9 26.7 - 34.0 pg 11/16/2021 12:50 PM [facility] MCHC 31.3 30.8 - 35.9 g/dL 11/16/2021 12:50 PM [facility] Platelet Count 316 150 - 400 10? 3 /uL 11/16/2021 12:50 PM [facility] RDW-SD 44.5 36.0 - 50.0 fL 11/16/2021 12:50 PM [facility] RDW-CV 13.2 11.2 - 14.8 % 11/16/2021 12:50 PM [facility] MPV 9.8 9.4 - 12.9 fL 11/16/2021 12:50 PM [facility] nRBC Absolute 0.00 0 10? 3 /uL 11/16/2021 12:50 PM [facility] nRBC Auto 0.0 0 /100 WBC 11/16/2021 12:50 PM [facility] Blood BLOOD SPECIMEN / Unknown Lab Venipuncture / Unknown 11/16/2021 11:26 AM CDT 11/16/2021 12:42 PM CDT Mckenzie Johnston MD LAB - HEMATOLOGY O RDERABLES Performing Organization Address [facility] Co de Phone Number [address] [address] [phone] * (ABNORMAL) COMPREHENSIVE METABOLIC PANEL (11/16/2021 11:26 AM CDT) BUN 13 7 - 26 mg/dL 11/16/2021 1:12 PM [facility] Creatinine 0.70 0.56 - 0.96 mg/dL 11/16/2021 1:12 PM [facility] Sodium 136 136 - 145 mmol/L 11/16/2021 1:12 PM [facility] Potassium 4.1 3.5 - 4.5 mmol/L 11/16/2021 1:12 PM [facility] Chloride 100 98 - 107 mmol/L 11/16/2021 1:12 PM [facility] CO2 24 22 - 29 mmol/L 11/16/2021 1:12 PM [facility] Glucose 182(H) 70 - 115 mg/dL 11/16/2021 1:12 PM [facility] Calcium 9.9 8.4 - 10.2 mg/dL 11/16/2021 1:12 PM [facility] Protein Total 7.9 6.0 - 8.3 g/dL 11/16/2021 1:12 PM [facility] Albumin 3.0(L) 3.4 - 5.0 g/dL 11/16/2021 1:12 PM [facility] Bilirubin Total 0.4 0.2 - 1.2 mg/dL 11/16/2021 1:12 PM [facility] Alkaline Phosphatase 77 40 - 150 U/L 11/16/2021 1:12 PM [facility] ALT 15 5 - 55 U/L 11/16/2021 1:12 PM [facility] AST 16 5 - 34 U/L 11/16/2021 1:12 PM [facility] Anion Gap 16 8 - 18 11/16/2021 1:12 PM [facility] BUN/Creatinine Ratio 19 7 - 23 11/16/2021 1:12 PM [facility] Osmolality Calculated 287 270 - 300 mOsm/kg 11/16/2021 1:12 PM [facility] Albumin/Globulin Ratio 0.6(L) 1.1 - 2.3 11/16/2021 1:12 PM [facility] eGFR by CKD-EPI >90 >=90 mL/min/1.7 3 m2 11/16/2021 1:12 PM [facility] Blood BLOOD SPECIMEN / Unknown Lab Venipuncture / Unknown 11/16/2021 11:26 AM CDT 11/16/2021 12:42 PM T Mckenzie Johnston MD LAB - CHEMISTRY OR DERABLES [facility] [address] [place] [address], [facility] [phone] * (ABNORMAL) C-REACTIVE PROTEIN (11/16/2021 11:26 AM CDT) C-Reactive Protein 1.8(H) <=0.5 mg/dL 11/16/2021 1:01 PM [facility] Blood BLOOD SPECIMEN / Unknown Lab Venipuncture / Unknown 11/16/2021 11:26 AM CDT 11/16/2021 12:41 PM CDT Mckenzie Johnston MD LAB - CHEMISTRY OR DERABLES Performing Organization Address City/[facility]/ZIP Co de Phone Number [address] [address], [place] [phone] * (ABNORMAL) ERYTHROCYTE SEDIMENTATION RATE (11/16/2021 11:26 AM CDT) Erythrocyte Sedimentation Rate Westergren 97(H) 0 - 30 MM/HR 11/16/2021 12:58 PM CDT [facility] Blood BLOOD SPECIMEN / Unknown Lab Venipuncture / Unknown 11/16/2021 11:26 AM CDT 11/16/2021 12:42 PM CDT Mckenzie Johnston MD LAB - HEMATOLOGY O RDERABLES Performing Organization Address [facility]/ZIP Co de Phone Number [address] [address], [place] [phone] * (ABNORMAL) GLUCOSE - POINT OF CARE (11/16/2021 8:00 AM CDT) Glucose WB/POC 170(H) 70 - 115 mg/dL 11/16/2021 8:02 AM CDT [facility] Specimen Type Cap Fingerstick 2021 8:02 AM CDT [facility] Blood BLOOD SPECIMEN / Unknown 11/16/2021 8:00 AM CDT 11/16/2021 8:02 AM CDT Mckenzie Johnston MD LAB - POINT OF CAR E ORDERABLES Performing Organization Address [facility]/ZIP Co de Phone Number [address] [address], [place] [phone] * (ABNORMAL) GLUCOSE - POINT OF CARE (11/15/2021 9:46 PM CDT) Glucose WB/POC 197(H) 70 - 115 mg/dL 11/15/2021 9:51 PM CDT [facility] Specimen Type Cap Fingerstick 2021 9:51 PM CDT [facility] Blood BLOOD SPECIMEN / Unknown 11/15/2021 9:46 PM CDT 11/15/2021 9:51 PM CDT Mckenzie Johnston MD LAB - POINT OF CAR E ORDERABLES Performing Organization Address City/[facility]/ZIP Co de Phone Number [address] [address], [place] [phone] * (ABNORMAL) GLUCOSE - POINT OF CARE (11/15/2021 4:34 PM CDT) Glucose WB/POC 165(H) 70 - 115 mg/dL 11/15/2021 4:39 PM CDT [facility] Specimen Type Cap Fingerstick 2021 4:39 PM CDT [facility] Blood BLOOD SPECIMEN / Unknown 11/15/2021 4:34 PM CDT 11/15/2021 4:38 PM CDT Mckenzie Johnston MD LAB - POINT OF CAR E ORDERABLES Performing Organization Address [facility] Co de Phone Number [address] [address], [place] [phone] * (ABNORMAL) GLUCOSE - POINT OF CARE (11/15/2021 12:11 PM CDT) Glucose WB/POC 172(H) 70 - 115 mg/dL 11/15/2021 12:16 PM CDT [facility] Specimen Type Cap Fingerstick 2021 12:16 PM CDT [facility] Blood BLOOD SPECIMEN / Unknown 11/15/2021 12:11 PM CDT 11/15/2021 12:16 PM CDT Mckenzie Johnston MD LAB - POINT OF CAR E ORDERABLES [facility] [address] [place] [address], [place] [phone] * (ABNORMAL) GLUCOSE - POINT OF CARE (11/15/2021 8:27 AM CDT) Glucose WB/POC 172(H) 70 - 115 mg/dL 11/15/2021 8:31 AM CDT [facility] Specimen Type Cap Fingerstick 2021 8:31 AM CDT [facility] Blood BLOOD SPECIMEN / Unknown 11/15/2021 8:27 AM CDT 11/15/2021 8:31 AM CDT Mckenzie Johnston MD LAB - POINT OF CAR E ORDERABLES [address] [address], [place] [phone] * (ABNORMAL) GLUCOSE - POINT OF CARE (11/14/2021 8:15 PM CDT) Glucose WB/POC 138(H) 70 - 115 mg/dL 11/14/2021 8:22 PM CDT [facility] Specimen Type Cap Fingerstick 2021 8:22 PM CDT [facility] Blood BLOOD SPECIMEN / Unknown 11/14/2021 8:15 PM CDT 11/14/2021 8:22 PM CDT Aly Perkins III, MD LAB - POINT OF CA RE ORDERABLES [facility] [address] [place] [address], [place] [phone] * (ABNORMAL) GLUCOSE - POINT OF CARE (11/14/2021 6:17 PM CDT) Glucose WB/POC 164(H) 70 - 115 mg/dL 11/14/2021 6:21 PM CDT [facility] Specimen Type Cap Fingerstick 2021 6:21 PM CDT [facility] Blood BLOOD SPECIMEN / Unknown 11/14/2021 6:17 PM CDT 11/14/2021 6:21 PM CDT Aly Perkins III, MD LAB - POINT OF LA RE ORDERABLES [facility] [address] [place] [address], [place] [phone] * (ABNORMAL) GLUCOSE - POINT OF CARE (11/14/2021 11:54 AM CDT) Glucose WB/POC 183(H) 70 - 115 mg/dL 11/14/2021 11:58 AM CDT [facility] Specimen Type Cap Fingerstick 2021 11:58 AM CDT [facility] Blood BLOOD SPECIMEN / Unknown 11/14/2021 11:54 AM CDT 11/14/2021 11:58 AM CDT Aly Perkins III, MD LAB - POINT OF LA RE ORDERABLES Performing Organization Address City/[facility]/ZIP Co de Phone Number [address] [address], [place] [phone] * (ABNORMAL) GLUCOSE - POINT OF CARE (11/14/2021 8:34 AM CDT) Glucose WB/POC 162(H) 70 - 115 mg/dL 11/14/2021 8:39 AM CDT [facility] Specimen Type Cap Fingerstick 2021 8:39 AM CDT [facility] Blood BLOOD SPECIMEN / Unknown 11/14/2021 8:34 AM CDT 11/14/2021 8:39 AM CDT Aly Perkins III, MD LAB - POINT OF LA RE ORDERABLES [address] [address], [place] [phone] * (ABNORMAL) GLUCOSE - POINT OF CARE (11/14/2021 1:55 AM CDT) Glucose WB/POC 194(H) 70 - 115 mg/dL 11/14/2021 2:00 AM CDT [facility] Specimen Type Cap Fingerstick 2021 2:00 AM CDT [facility] Blood BLOOD SPECIMEN / Unknown 11/14/2021 1:55 AM CDT 11/14/2021 2:00 AM CDT Aly Perkins III, MD LAB - POINT [facility] RE ORDERABLES Performing Organization Address City/[facility]/ZIP Co de Phone Number [address] [address], [place] [phone] * (ABNORMAL) GLUCOSE - POINT OF CARE (11/13/2021 8:15 PM CDT) Glucose WB/POC 231(H) 70 - 115 mg/dL 11/13/2021 8:20 PM CDT [facility] Specimen Type Cap Fingerstick 2021 8:20 PM CDT [facility] Blood BLOOD SPECIMEN / Unknown 11/13/2021 8:15 PM CDT 11/13/2021 8:20 PM CDT Aly Perkins III, MD LAB - [place] RE ORDERABLES Performing Organization Address [facility]/ZIP Co de Phone Number [address] [address], [place] [phone] * (ABNORMAL) GLUCOSE - POINT OF CARE (11/13/2021 5:17 PM CDT) Glucose WB/POC 209(H) 70 - 115 mg/dL 11/13/2021 5:19 PM CDT [facility] Specimen Type Cap Fingerstick 2021 5:19 PM CDT [facility] Blood BLOOD SPECIMEN / Unknown 11/13/2021 5:17 PM CDT 11/13/2021 5:19 PM CDT Aly Perkins III, MD LAB - [place] RE ORDERABLES [address] [address], [place] [phone] * (ABNORMAL) GLUCOSE - POINT OF CARE (11/13/2021 12:15 PM CDT) Glucose WB/POC 178(H) 70 - 115 mg/dL 11/13/2021 12:19 PM CDT [facility] HOSPITAL Specimen Type Cap Fingerstick 2021 12:19 PM CDT [facility] Blood BLOOD SPECIMEN / Unknown 11/13/2021 12:15 PM CDT 11/13/2021 12:19 PM CDT Aly Perkins III, MD LAB - POINT OF LA RE ORDERABLES Performing Organization Address City/[facility]/ZIP Co de Phone Number [address] [address], [facility] [phone] * (ABNORMAL) GLUCOSE - POINT OF CARE (11/13/2021 8:49 AM CDT) Glucose WB/POC 168(H) 70 - 115 mg/dL 11/13/2021 8:53 AM CDT [facility] Specimen Type Cap Fingerstick 2021 8:53 AM CDT [facility] Blood BLOOD SPECIMEN / Unknown 11/13/2021 8:49 AM CDT 11/13/2021 8:53 AM CDT Aly Perkins III, MD LAB - POINT OF LA RE ORDERABLES [address] [address], [place] [phone] * (ABNORMAL) BASIC METABOLIC PANEL (CALCIUM TOTAL) (11/13/2021 6:58 AM CDT) BUN 13 7 - 26 mg/dL 11/13/2021 7:29 AM CDT [facility] Creatinine 0.66 0.56 - 0.96 mg/dL 11/13/2021 7:29 AM [facility] Sodium 138 136 - 145 mmol/L 11/13/2021 7:29 AM [facility] Potassium 4.1 3.5 - 4.5 mmol/L 11/13/2021 7:29 AM [facility] Chloride 102 98 - 107 mmol/L 11/13/2021 7:29 AM [facility] CO2 28 22 - 29 mmol/L 11/13/2021 7:29 AM [facility] Glucose 155(H) 70 - 115 mg/dL 11/13/2021 7:29 AM [facility] Calcium 9.1 8.4 - 10.2 mg/dL 11/13/2021 7:29 AM [facility] Anion Gap 12 8 - 18 11/13/2021 7:29 AM [facility] BUN/Creatinine Ratio 20 7 - 23 11/13/2021 7:29 AM [facility] Osmolality Calculated 289 270 - 300 mOsm/kg 11/13/2021 7:29 AM [facility] eGFR by CKD-EPI >90 >=90 mL/min/1.7 3 m2 11/13/2021 7:29 AM [facility] Blood BLOOD SPECIMEN / Unknown Lab Venipuncture / Unknown 11/13/2021 6:58 AM CDT 11/13/2021 6:58 AM T Aly Perkins III, MD LAB - CHEMISTRY O RDERABLES Performing Organization Address [facility]/State/[facility] Co de Phone Number [facility] [address] [place] [address], [facility] [phone] * (ABNORMAL) PTT [facility] (11/13/2021 1:07 AM CDT) APTT 77.2(H) 23.0 - 38.4 Seconds 11/13/2021 1:33 AM [facility] Comment:Suggested therapeuti c range for full dose I.V. unfractionated heparin therapy for venous thromboembolism is 71 to 109 seconds. Blood BLOOD SPECIMEN / Unknown Venipuncture / Unknown 11/13/2021 1:07 AM CDT 11/13/2021 1:11 AM CDT Tima Cardenas MD LAB - COAGULATI ON ORDERABLES Performing Organization Address City/[facility]/ZIP Co de Phone Number [facility] [address] [place] [address], [facility] [phone] * (ABNORMAL) PT-INR [facility] (11/13/2021 1:07 AM CDT) PT 15.2(H) 12.1 - 14.8 Seconds 11/13/2021 1:31 AM CDT [facility] INR 1.2 See Comment 11/13/2021 1:31 AM T [facility] - COAGULATI ON ORDERABLES Performing Organization Address City/[facility]/ZIP Co de Phone Number [facility] [address] [place] [address], [facility] [phone] * (ABNORMAL) CBC W AUTO DIFFERENTIAL (11/13/2021 1:07 AM CDT) WBC 9.0 3.5 - 10.5 10? 3 /uL 11/13/2021 1:25 AM CDT [facility] RBC 3.87 3.80 - 5.20 10? 6 /uL 11/13/2021 1:25 AM CDT [facility] Hemoglobin 11.3(L) 12.0 - 15.6 g/dL 11/13/2021 1:25 AM T [facility] Hematocrit 35.4 35.0 - 45.0 % 11/13/2021 1:25 AM [facility] MCV 91.5 80.7 - 98.3 fL 11/13/2021 1:25 AM [facility] MCH 29.2 26.7 - 34.0 pg 11/13/2021 1:25 AM [facility] MCHC 31.9 30.8 - 35.9 g/dL 11/13/2021 1:25 AM [facility] Platelet Count 289 150 - 400 10? 3 /uL 11/13/2021 1:25 AM [facility] RDW-SD 46.1 36.0 - 50.0 fL 11/13/2021 1:25 AM [facility] RDW-CV 13.5 11.2 - 14.8 % 11/13/2021 1:25 AM [facility] MPV 10.0 9.4 - 12.9 fL 11/13/2021 1:25 AM [facility] nRBC Absolute 0.00 0 10? 3 /uL 11/13/2021 1:25 AM [facility] nRBC Auto 0.0 0 /100 WBC 11/13/2021 1:25 AM [facility] Neutrophils % 51.0 35.0 - 70.0 % 11/13/2021 1:25 AM [facility] Lymphocytes % 33.3 20.0 - 43.0 % 11/13/2021 1:25 AM [facility] Monocytes % 8.5 5.0 - 13.0 % 11/13/2021 1:25 AM [facility] Eosinophils % 6.1(H) 0.0 - 6.0 % 11/13/2021 1:25 AM [facility] Basophil % 0.7 0.0 - 2.0 % 11/13/2021 1:25 AM [facility] Neutrophils Absolute 4.59 1.60 - 7.00 10? 3 /uL 11/13/2021 1:25 AM [facility] Lymphocyte Absolute 3.00 1.10 - 3.90 10? 3 /uL 11/13/2021 1:25 AM [facility] Monocytes Absolute 0.77 0.26 - 1.07 10? 3 /uL 11/13/2021 1:25 AM CDT [facility] Eosinophils Absolute 0.55(H) 0.00 - 0.47 10? 3 /uL 11/13/2021 1:25 AM CDT [facility] Basophils Absolute 0.06 0.00 - 0.08 10? 3 /uL 11/13/2021 1:25 AM CDT [facility] Immature Granulocytes % 0.4 0.0 - 1.0 % 11/13/2021 1:25 AM CDT [facility] Immature Granulocytes Absolute 0.04 11/13/2021 1:25 AM CDT [facility] Blood BLOOD SPECIMEN / Unknown Venipuncture / Unknown 11/13/2021 1:07 AM CDT 11/13/2021 1:11 AM CDT Tima Cardenas MD LAB - HEMATOLOG Y ORDERABLES Performing Organization Address City/[facility]/ZIP Co de Phone Number [address] [address], [facility] [phone] * (ABNORMAL) PTT [facility] (11/12/2021 6:23 PM CDT) APTT 70.9(H) 23.0 - 38.4 Seconds 11/12/2021 6:55 PM CDT [facility] Comment:Suggested therapeuti c range for full dose I.V. unfractionated heparin therapy for venous thromboembolism is 71 to 109 seconds. Blood BLOOD SPECIMEN / Unknown Lab Venipuncture / Unknown 11/12/2021 6:23 PM CDT 11/12/2021 6:31 PM CDT Aly Perkins III, MD LAB - COAGULATION ORDERABLES Performing Organization Address City/[facility]/ZIP Co de Phone Number [address] [address], [place] [phone] * (ABNORMAL) GLUCOSE - POINT OF CARE (11/12/2021 6:10 PM CDT) Glucose WB/POC 168(H) 70 - 115 mg/dL 11/12/2021 6:11 PM CDT [facility] Specimen Type Cap Fingerstick 2021 6:11 PM CDT [facility] Blood BLOOD SPECIMEN / Unknown 11/12/2021 6:10 PM CDT 11/12/2021 6:11 PM CDT Provider Unknown LAB - POINT OF CARE ORDERABLES Performing Organization Address City/[facility]/ZIP Co de Phone Number [facility] [address] [place] [address], [place] [phone] * ECHO COMPLETE (11/12/2021 4:10 PM CDT) Anatomical Region Laterality Modality Chest Echo 11/12/2021 3:25 PM CDT Narrative Procedure Note Tamika Cowan MD - 11/12/2021 Aly Perkins III, MD ECHOCARDIOGRAPHY RADIANT * (ABNORMAL) GLUCOSE - POINT OF CARE (11/12/2021 1:24 PM CDT) Glucose WB/POC 162(H) 70 - 115 mg/dL 11/12/2021 1:28 PM CDT [facility] Specimen Type Cap Fingerstick 2021 1:28 PM CDT [facility] Blood BLOOD SPECIMEN / Unknown 11/12/2021 1:24 PM CDT 11/12/2021 1:28 PM CDT Aly Perkins III, MD LAB - POINT OF CA RE ORDERABLES [facility] [address] [place] [address], [place] [phone] * (ABNORMAL) PTT [facility] (11/12/2021 12:33 PM CDT) APTT 118.9(HH) 23.0 - 38.4 Seconds 11/12/2021 1:05 PM CDT [facility] Comment:Suggested therapeuti c range for full dose I.V. unfractionated heparin therapy for venous thromboembolism is 71 to 109 seconds. Blood BLOOD SPECIMEN / Unknown Venipuncture / Unknown 11/12/2021 12:33 PM CDT 11/12/2021 12:41 PM CDT Epi Solitario MD LAB - COAGULATION OR DERABLES Performing Organization Address [facility] Co de Phone Number [facility] [address] [place] [phone], [facility] [phone] * (ABNORMAL) PROCALCITONIN LEVEL (11/12/2021 12:33 PM [...] Change in Procalcitonin Calculator is available at [email or web address] ?? If clinical picture has not improved and PCT remains high, reevaluate and consider treatment failure or other causes. Aly Perkins III, MD LAB - CHEMISTRY O RDERABLES Performing Organization Address [facility] Co de Phone Number [facility] [address] [place] [address], [place] [phone] * VAS RIGHT VENOUS DUPLEX UE (11/12/2021 10:11 AM CDT) Anatomical Region Laterality Modality Upper Extremity Intravascular Ul trasound 11/12/2021 9:37 AM CDT Narrative Procedure Note Justen Ba MD - 11/13/2021 Roger Snowden MD VASCULAR LAB ORDERAB LES * (ABNORMAL) GLUCOSE - POINT OF CARE (11/12/2021 8:23 AM CDT) Glucose WB/POC 132(H) 70 - 115 mg/dL 11/12/2021 8:25 AM CDT [facility] Specimen Type Cap Fingerstick 2021 8:25 AM CDT [facility] Blood BLOOD SPECIMEN / Unknown 11/12/2021 8:23 AM CDT 11/12/2021 8:25 AM CDT Aly Perkins III, MD LAB - POINT OF CA RE ORDERABLES Performing Organization Address [facility]/ZIP Co de Phone Number [facility] [address] [place] [address], [place] [phone] * (ABNORMAL) PT-INR [facility] (11/12/2021 3:36 AM CDT) PT 18.4(H) 12.1 - 14.8 Seconds 11/12/2021 4:02 AM CDT [facility] INR 1.6 See Comment 11/12/2021 4:02 AM CDT [facility] Comment:The suggested therap eutic range for standard coumadin (warfarin) therapy is an INR of 2.0-3.0. For high-risk patients (Mechanical Mitral Valve Prosthesis, etc.), the suggested prophylactic therapeutic range is an INR of 2.5-3.5. Blood BLOOD SPECIMEN / Unknown Venipuncture / Unknown 11/12/2021 3:36 AM CDT 11/12/2021 3:42 AM CDT Tima Cardenas MD LAB - COAGULATI ON ORDERABLES Performing Organization Address [facility]/ZIP Co de Phone Number [address] [address], [facility] [phone] * PTT [facility] (11/12/2021 3:36 AM CDT) APTT 32.0 23.0 - 38.4 Seconds 11/12/2021 4:02 AM T [facility] Comment:Suggested therapeuti c range for full dose I.V. unfractionated heparin therapy for venous thromboembolism is 71 to 109 seconds. Blood BLOOD SPECIMEN / Unknown Venipuncture / Unknown 11/12/2021 3:36 AM CDT 11/12/2021 3:42 AM CDT Tima Cardenas MD LAB - COAGULATI ON ORDERABLES Performing Organization Address City/[facility]/ZIP Co de Phone Number [facility] [address] [place] [address], [facility] [phone] * (ABNORMAL) CBC W AUTO DIFFERENTIAL (11/12/2021 3:36 AM CDT) WBC 11.1(H) 3.5 - 10.5 10? 3 /uL 11/12/2021 4:04 AM CDT [facility] RBC 4.08 3.80 - 5.20 10? 6 /uL 11/12/2021 4:04 AM CDT [facility] Hemoglobin 11.8(L) 12.0 - 15.6 g/dL 11/12/2021 4:04 AM [facility] Hematocrit 37.4 35.0 - 45.0 % 11/12/2021 4:04 AM [facility] MCV 91.7 80.7 - 98.3 fL 11/12/2021 4:04 AM [facility] MCH 28.9 26.7 - 34.0 pg 11/12/2021 4:04 AM [facility] MCHC 31.6 30.8 - 35.9 g/dL 11/12/2021 4:04 AM [facility] Platelet Count 296 150 - 400 10? 3 /uL 11/12/2021 4:04 AM [facility] RDW-SD 45.8 36.0 - 50.0 fL 11/12/2021 4:04 AM [facility] RDW-CV 13.5 11.2 - 14.8 % 11/12/2021 4:04 AM [facility] MPV 9.5 9.4 - 12.9 fL 11/12/2021 4:04 AM [facility] nRBC Absolute 0.00 0 10? 3 /uL 11/12/2021 4:04 AM [facility] nRBC Auto 0.0 0 /100 WBC 11/12/2021 4:04 AM [facility] Neutrophils % 61.8 35.0 - 70.0 % 11/12/2021 4:04 AM [facility] Lymphocytes % 26.4 20.0 - 43.0 % 11/12/2021 4:04 AM [facility] Monocytes % 7.7 5.0 - 13.0 % 11/12/2021 4:04 AM [facility] Eosinophils % 3.3 0.0 - 6.0 % 11/12/2021 4:04 AM [facility] Basophil % 0.4 0.0 - 2.0 % 11/12/2021 4:04 AM [facility] Neutrophils Absolute 6.85 1.60 - 7.00 10? 3 /uL 11/12/2021 4:04 AM [facility] Lymphocyte Absolute 2.92 1.10 - 3.90 10? 3 /uL 11/12/2021 4:04 AM CDT [facility] Monocytes Absolute 0.85 0.26 - 1.07 10? 3 /uL 11/12/2021 4:04 AM CDT [facility] Eosinophils Absolute 0.37 0.00 - 0.47 10? 3 /uL 11/12/2021 4:04 AM CDT [facility] Basophils Absolute 0.04 0.00 - 0.08 10? 3 /uL 11/12/2021 4:04 AM CDT [facility] Immature Granulocytes % 0.4 0.0 - 1.0 % 11/12/2021 4:04 AM CDT [facility] Immature Granulocytes Absolute 0.04 11/12/2021 4:04 AM CDT [facility] Blood BLOOD SPECIMEN / Unknown Venipuncture / Unknown 11/12/2021 3:36 AM CDT 11/12/2021 3:56 AM CDT Tima Cardenas MD LAB - HEMATOLOG Y ORDERABLES [facility] [address] [place] [address], [facility] [phone] * CT ANGIO CHEST PULM EMBOLISM (11/12/2021 [...] . Roger Snowden MD CT ORDERABLES * CULTURE BLOOD (11/11/2021 10:43 PM CDT) Culture No growth day 5 TERRANCE 11/17/2021 3:02 AM CDT [facility] MICROBIOLOGY Blood PERIPHERAL BLOOD / Unknown Venipuncture / Unknown 11/11/2021 10:43 PM CDT 11/11/2021 10:47 PM CDT Sisi Rikcs PA-C LAB - MICROBIOLOGY ORDERABLES [facility] MICROBIOLOGY [address] [place] [address], [facility] [phone] * CULTURE BLOOD (11/11/2021 10:38 PM CDT) Culture No growth day 5 TERRANCE 11/17/2021 3:02 AM CDT [facility] MICROBIOLOGY Blood PERIPHERAL BLOOD / Unknown Venipuncture / Unknown 11/11/2021 10:38 PM CDT 11/11/2021 10:42 PM CDT Sisi Ricks PA-C LAB - MICROBIOLOGY ORDERABLES [facility] MICROBIOLOGY [address] [place] [address], [facility] [phone] * B-TYPE NATRIURETIC PEPTIDE (11/11/2021 10:38 PM CDT) [facility] BNP <10 <100 pg/mL 11/11/2021 11:27 PM CDT [facility] [...] - CHEMISTRY OR DERABLES Performing Organization Address City/[facility] Co de Phone Number [facility] [address] [place] [address], [place] [phone] * TROPONIN I (11/11/2021 10:38 PM CDT) [facility] Troponin I <0.010 <0.032 ng/mL 11/11/2021 11:06 PM CDT [facility] Blood BLOOD SPECIMEN / Unknown Venipuncture / Unknown 11/11/2021 10:38 PM CDT 11/11/2021 10:43 PM CDT Sisi Ricks PA-C LAB - CHEMISTRY OR DERABLES Performing Organization Address City/[facility] Co de Phone Number [facility] [address] [place] [address], [place] [phone] * (ABNORMAL) COMPREHENSIVE METABOLIC PANEL (11/11/2021 10:38 PM CDT) [facility] BUN 15 7 - 26 mg/dL 11/11/2021 11:13 PM CDT [facility] Creatinine 0.79 0.56 - 0.96 mg/dL 11/11/2021 11:13 PM CDT [facility] Sodium 138 136 - 145 mmol/L 11/11/2021 11:13 PM CDT [facility] Potassium 4.0 3.5 - 4.5 mmol/L 11/11/2021 11:13 PM [facility] Chloride 102 98 - 107 mmol/L 11/11/2021 11:13 PM [facility] CO2 23 22 - 29 mmol/L 11/11/2021 11:13 PM [facility] Glucose 213(H) 70 - 115 mg/dL 11/11/2021 11:13 PM [facility] Calcium 9.7 8.4 - 10.2 mg/dL 11/11/2021 11:13 PM [facility] Protein Total 8.8(H) 6.0 - 8.3 g/dL 11/11/2021 11:13 PM [facility] Albumin 3.1(L) 3.4 - 5.0 g/dL 11/11/2021 11:13 PM [facility] Bilirubin Total 0.4 0.2 - 1.2 mg/dL 11/11/2021 11:13 PM [facility] Alkaline Phosphatase 91 40 - 150 U/L 11/11/2021 11:13 PM [facility] ALT 17 5 - 55 U/L 11/11/2021 11:13 PM [facility] AST 13 5 - 34 U/L 11/11/2021 11:13 PM [facility] Anion Gap 17 8 - 18 11/11/2021 11:13 PM [facility] BUN/Creatinine Ratio 19 7 - 23 11/11/2021 11:13 PM [facility] Osmolality Calculated 293 270 - 300 mOsm/kg 11/11/2021 11:13 PM [facility] Albumin/Globulin Ratio 0.5(L) 1.1 - 2.3 11/11/2021 11:13 PM [facility] eGFR by CKD-EPI 83(L) >=90 mL/min/1.7 3 m2 11/11/2021 11:13 PM [facility] Blood BLOOD SPECIMEN / Unknown Venipuncture / Unknown 11/11/2021 10:38 PM CDT 11/11/2021 10:43 PM T Sisi Ricks PA-C LAB - CHEMISTRY OR DERABLES [facility] [address] [place] [address], [facility] [phone] * (ABNORMAL) CBC W AUTO DIFFERENTIAL (11/11/2021 10:38 PM CDT) WBC 13.1(H) 3.5 - 10.5 10? 3 /uL 11/11/2021 10:48 PM CDT [facility] RBC 4.58 3.80 - 5.20 10? 6 /uL 11/11/2021 10:48 PM T [facility] Hemoglobin 13.2 12.0 - 15.6 g/dL 11/11/2021 10:48 PM [facility] Hematocrit 41.6 35.0 - 45.0 % 11/11/2021 10:48 PM [facility] MCV 90.8 80.7 - 98.3 fL 11/11/2021 10:48 PM T [facility] MCH 28.8 26.7 - 34.0 pg 11/11/2021 10:48 PM CDT [facility] MCHC 31.7 30.8 - 35.9 g/dL 11/11/2021 10:48 PM T [facility] Platelet Count 305 150 - 400 10? 3 /uL 11/11/2021 10:48 PM [facility] RDW-SD 45.1 36.0 - 50.0 fL 11/11/2021 10:48 PM T [facility] RDW-CV 13.4 11.2 - 14.8 % 11/11/2021 10:48 PM T [facility] MPV 9.6 9.4 - 12.9 fL 11/11/2021 10:48 PM T [facility] nRBC Absolute 0.00 0 10? 3 /uL 11/11/2021 10:48 PM [facility] nRBC Auto 0.0 0 /100 WBC 11/11/2021 10:48 PM [facility] Neutrophils % 63.3 35.0 - 70.0 % 11/11/2021 10:48 PM T [facility] Lymphocytes % 25.8 20.0 - 43.0 % 11/11/2021 10:48 PM CDT [facility] Monocytes % 6.7 5.0 - 13.0 % 11/11/2021 10:48 PM CDT [facility] Eosinophils % 3.3 0.0 - 6.0 % 11/11/2021 10:48 PM CDT [facility] Basophil % 0.4 0.0 - 2.0 % 11/11/2021 10:48 PM CDT [facility] Neutrophils Absolute 8.26(H) 1.60 - 7.00 10? 3 /uL 11/11/2021 10:48 PM CDT [facility] Lymphocyte Absolute 3.37 1.10 - 3.90 10? 3 /uL 11/11/2021 10:48 PM CDT [facility] Monocytes Absolute 0.88 0.26 - 1.07 10? 3 /uL 11/11/2021 10:48 PM CDT [facility] Eosinophils Absolute 0.43 0.00 - 0.47 10? 3 /uL 11/11/2021 10:48 PM CDT [facility] Basophils Absolute 0.05 0.00 - 0.08 10? 3 /uL 11/11/2021 10:48 PM CDT [facility] Immature Granulocytes % 0.5 0.0 - 1.0 % 11/11/2021 10:48 PM CDT [facility] Immature Granulocytes Absolute 0.06 11/11/2021 10:48 PM CDT [facility] Blood BLOOD SPECIMEN / Unknown Venipuncture / Unknown 11/11/2021 10:38 PM CDT 11/11/2021 10:43 PM CDT Sisi Ricks PA-C LAB - HEMATOLOGY O RDERABLES [facility] [address] [place] [address], [facility] [phone] * XR CHEST 2VW (11/11/2021 5:26 PM [...] by David Charlton MD, PhD (residential sales consultant). I, Dr. VI BELL have personally reviewed [...] by David Charlton MD, PhD (residential sales consultant). Dr. VI Perez have personally reviewed and interpreted this examination/study. This report was electronically signed by VI BELL on 11/11/2021 11:57 PM . Sisi Ricks PA-C DIAGNOSTIC IMAGING ORDERABLES * EKG 12-LEAD (11/11/2021 5:24 PM CDT) Ventricular Rate 99 BPM [facility] Atrial Rate 99 BPM [facility] P-R Interval 122 ms [facility] QRS Duration ms 84 ms [facility] Q-T Interval ms 326 ms [facility] MUSE QTC Calculation (Bezet) 418 ms [facility] Calculated P [place] 39 degrees [facility] MUSE Calculated R [place] 6 degrees [facility]USE Calculated T [place] 50 degrees [facility] Interpretation EKG NORMAL SINUS RHYTHM NORMAL ECG WHEN COMPARED WITH ECG OF 05-NOV-2021 13:25, NO SIGNIFICANT CHANGE WAS FOUND Confirmed by MD. Tirso , Lizzy ([id number]) on 11/12/2021 9:54:46 PM [facility] MUSE 11/11/2021 5:24 PM CDT 11/12/2021 9:54 PM CDT Sisi Ricks PA-C ECG ORDERABLES [facility] MUSE documented in this encounter Visit Diagnoses Diagnosis Heart murmur- Primary Undiagnosed cardiac murmurs Chest pain, unspecified type Dyspnea, unspecified type Arm pain, diffuse, right Multiple subsegmental pulmonary emboli without acute cor pulmonale (HCC) Tachycardia Tachycardia, unspecified Hardware complicating wound infection, initial encounter (HCC) Multiple subsegmental pulmonary emboli without acute cor pulmonale (HCC) Essential hypertension Type 2 diabetes mellitus without complication (HCC) Wound infection complicating hardware (HCC) 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 Flushing may be contraindicated if concentrated drips are infusing. $ Given 11/16/2021 2:30 PM CDT 10 mL $ Given 11/16/2021 6:21 AM CDT 10 mL $ Given 11/15/2021 9:00 PM CDT 10 mL 0.9% NaCl injection 10-40 mL 10-40 mL, Intravenous, PRN, Other, mid-line flush, Starting on Mon11/15/21 at 0802, Until Mon11/16/21 at 1948, Flush each lumen of mid-line with 10ml NS IVP before and after medication/solution administration, before and after blood product administration, when obtaining blood sample, discard 5-10ml blood, then obtain sample. Upon completion, pulse flush with 20ml sterile NS IVP and PRN to determine patency. acetaminophen (Tylenol) tablet 500 mg 500 mg, Oral, 3 TIMES DAILY, First dose on Mon11/13/21 at 1000, Until Discontinued, Patient preference for lesser PRN pain meds may be honored when the patient requests a less strong medication, a lower dose, or a less intrusive route of administration when the lesser drug, dose and route have been ordered for the patient. This patient request must be documented in the MAR. $ Given 11/16/2021 2:30 PM CDT 500 m g $ Given 11/16/2021 9:21 AM CDT 500 mg $ Given 11/15/2021 8:59 PM CDT 500 mg ALPRAZolam (Xanax) tablet 0.5 mg 0.5 mg, Oral, 3 TIMES DAILY PRN, Anxiety, Starting on Mon11/12/21 at 0337, Until Mon11/16/21 at 1948 $ Given 11/15/2021 2:29 PM CDT 0.5 mg $ Given 11/14/2021 9:04 PM CDT 0.5 mg $ Given 11/13/2021 9:20 PM CDT 0.5 mg amitriptyline (Elavil) tablet 25 mg 25 mg, Oral, AT BEDTIME, First dose on Mon11/12/21 at 2100, Until Discontinued $ Given 11/15/2021 8:59 PM CDT 25 mg $ Given 11/14/2021 9:04 PM CDT 25 mg $ Given 11/13/2021 9:21 PM CDT 25 mg dextrose IV 12.5 g 12.5 g, Intravenous, PRN, Other, Bedside Glucose less than 70 mg/dL -If NOT able to eat and/or NPO and with IV Access, Starting on Mon11/12/21 at 0338, Until Mon11/16/21 at 194, If NOT able to eat and/or NPO [...] mg/dl. NOTIFY PROVIDER OF HYPOGLYCEMIC EVENT. dextrose IV 25 g 25 g, Intravenous, PRN, Other, Bedside Glucose less than 70 mg/dL -If NOT able to eat and/or NPO and with IV Access, Starting on Mon11/12/21 at 0338, Until Mon11/16/21 at 194, If NOT able to eat and/or NPO [...] 80 mg/dl. NOTIFY PROVIDER OF HYPOGLYCEMIC EVENT. ertapenem (INVanz) 1,000 mg in 0.9% NaCl IV 50 mL IVPB 1,000 mg (1 g), at 100 mL/hr, Intravenous, EVERY 24 HOURS, First dose on Mon11/12/21 at 1400, Until Discontinued, Indication for anti-infective therapy: Documented infection, Site of anti-infective therapy: Wound $ New Bag/Syringe 11/16/2021 2:34 PM CDT 1,000 mg 100 mL/hr $ New Bag/Syringe 11/15/2021 2:36 PM CDT 1,000 mg 100 mL /hr $ New Bag/Syringe 11/14/2021 1:31 PM CDT 1,000 mg 100 mL /hr glucagon (Glucagen) injection 1 mg 1 mg, Intramuscular, PRN, Bedside Glucose less than 70 mg/dL - If NOT able to eat and/or NPO and withOUT IV Access, Starting on Mon11/12/21 at 0338, Until Mon11/16/21 at 194, If NOT able to eat and/or NPO and NO IV Access: For Bedside glucose 54-69 mg/dL Give 1 mg IM or SQ For Bedside Glucose LESS than 54 mg/dl verify with a second bedside glucose (from a different site) and Give 1 mg IM or SQ Re-check and Re-treat blood glucose EVERY 10-25 minutes until blood glucose GREATER than or equal to 80 mg/dl. NOTIFY PROVIDER OF HYPOGLYCEMIC EVENT. Reconstitute vial with 1 mL of sterile water for injection for a final concentration of 1 mg/mL; shake vial gently; use immediately and discard unused portion glucose (Diabetic Use) (Dex4 Glucose) oral liquid Oral, PRN, Other, Bedside Glucose less than 70 mg/dL -If able to eat and does not have swallowing difficulties, Starting on Mon11/12/21 at 0338, Until Mon11/16/21 at 1947, If able to eat and can swallow [...] pt is symptomatic, do not delay treatment Consider confirming the glucose with a STAT laboratory test Give [...] 80 mg/dl. NOTIFY PROVIDER OF HYPOGLYCEMIC EVENT. glucose (Diabetic Use) oral gel Oral, PRN, Other, Bedside Glucose less than 70 mg/dL -If able to eat and does not have swallowing difficulties, Starting on Mon11/12/21 at 0338, Until Mon11/16/21 at 1947, If able to eat and is better [...] pt is symptomatic, do not delay treatment Consider confirming the glucose with a STAT laboratory test Give [...] 80 mg/dl. NOTIFY PROVIDER OF HYPOGLYCEMIC EVENT. glucose chew tablet 4 tablet 4 tablet (16 g), Oral, PRN, Other, Bedside Glucose less than 70 mg/dL -If able to eat and does not have swallowing difficulties, Starting on Mon11/12/21 at 0338, Until Mon11/16/21 at 1948, If able to eat and does not [...] pt is symptomatic, do not delay treatment Consider confirming the glucose with a STAT laboratory test Give 32 grams of oral carbohydrates - 8 glucose tabs (see MAR) If patient refuses glucose gel, then offer: - 8 ounces of fruit juice OR - 8 ounces non-diet soda OR - 16 ounces of fat-free milk Re-check and Re-treat blood glucose EVERY 10-25 minutes until blood glucose GREATER than or equal to 80 mg/dl. NOTIFY PROVIDER OF HYPOGLYCEMIC EVENT. heparin 100 units/mL bolus from bag 7,000 Units, Intravenous, BOLUS FROM BAG ONCE, 1 dose, On Mon11/12/21 at 0230 Bolus From Bag 11/12/2021 3:51 AM CDT 7,000 Units heparin 25,000 units in 250 mL (100 units/mL) in 0.45% NaCl 1,100-2,600 Units/hr (11-26 mL/hr), Intravenous, CONTINUOUS, Starting on Mon11/12/21 at 0230, Until Mon11/13/21 at 0856, Initial rate 1800 units/hr APTT(sec) RATE CHANGE less than 59: bolus + increase by 400 units/hr, 59-68.9: bolus + increase by 250 units/hr, 69-110: NO CHANGE (therapeutic range), 110.1-121: decrease by 100 units/hr, 121.1-141: decrease by 250 units/hr, greater than 141: Hold heparin for 1 hour and reduce rate by 350 units/hr Draw aPTT 6 hours after infusion is initiated. Repeat aPTT 6 hours after any rate change or 6 hours after heparin is restarted. After two consecutive aPTTs drawn 6 hours apart are therapeutic, order aPTT to be drawn the following a.m. and daily and adjust per nomogram. Notify physician if 2 consecutive aPTT's are greater than 140 If heparin is interrupted for any reason other than described in the table, notify the physician. If heparin is to be restarted after an interruption of more than 4 hours, give 5000 units IV bolus and resume infusion at same rate as before the interruption. $ New Bag/Syringe 11/13/2021 7:30 AM CDT 1,700 Units/hr 17 mL/hr $ New Bag/Syringe 11/12/2021 1:56 PM CDT 1,700 Units/hr 17 mL/hr $ New Bag/Syringe 11/12/2021 3:54 AM CDT 1,800 Units/hr 18 mL/hr HYDROmorphone (Dilaudid) injection 0.2 mg 0.2 mg, Intravenous, NOW, 1 dose, On Valeri 11/11/21 at 2245, Patient preference for lesser PRN pain meds may be honored when the patient requests a less strong medication, a lower dose, or a less intrusive route of administration when the lesser drug, dose and route have been ordered for the patient. This patient request must be documented in the MAR. $ Given 11/11/2021 11:20 PM CDT 0.2 mg hydrOXYzine HCl (Atarax) tablet 25 mg 25 mg, Oral, 4 TIMES DAILY PRN, Itching, Starting on 11/13/21 at 0906, Until 11/16/21 at 1948 $ Given 11/15/2021 2:29 PM CDT 25 mg $ Given 11/13/2021 10:14 AM CDT 25 mg insulin glargine (Lantus) pen 10 Units 10 Units, Subcutaneous, DAILY, First dose (after last modification) on Mon11/14/21 at 0900, Until Discontinued, Obtain current Blood Glucose if necessary . WASTE DISPOSAL INSTRUCTIONS: Black Bin Disposal required. $ Given 11/16/2021 9:22 AM CDT 10 Units Abd Left Lower Quadr ant $ Given 11/15/2021 9:00 AM CDT 10 Units Ab dominal Tissue $ Given 11/14/2021 9:09 AM CDT 10 Units Le ft Arm insulin glargine (Lantus) pen 15 Units 15 Units, Subcutaneous, DAILY, First dose on Mon11/12/21 at 0900, Until Discontinued, Obtain current Blood Glucose if necessary . WASTE DISPOSAL INSTRUCTIONS: Black Bin Disposal required. $ Given 11/13/2021 10:15 AM CDT 15 Units Left Arm $ Given 11/12/2021 9:17 AM CDT 15 Units Ab dominal Tissue insulin lispro (HumaLOG;ADMelog) 100 UNIT/ML pen 0-6 Units 0-6 Units, Subcutaneous, 3 TIMES DAILY WITH MEALS, First dose on Mon11/12/21 at 0800, Until Discontinued, DO NOT HOLD CORRECTION BOLUS EVEN IF PATIENT IS NPO. If patient is eating meals and has orders for Mealtime Insulin Bolus, combine and give at the same time. BEDSIDE GLUCOSE MUST BE PERFORMED AND DOCUMENTED WITHIN 30-60 MINUTES OF CORRECTION INSULIN ADMINISTRATION. BG (mg/dL) LESS than 70 = follow Hypoglycemic guidelines 150-200 = give 1 unit 201-250 = give 2 units, 251-300 = give 3 units 301-350 = give 4 units 351-400 = give 5 units and notify physician GREATER than 400 = give 6 units and notify physician $ Given 11/16/2021 5:17 PM CDT 1 Units Abd Left Lower Quadrant $ Given 11/16/2021 12:19 PM CDT 1 Units A bd Right Lower Quadrant $ Given 11/16/2021 9:21 AM CDT 1 Units Ab d Left Lower Quadrant insulin lispro (HumaLOG;ADMelog) 100 UNIT/ML pen 3 Units 3 Units, Subcutaneous, 3 TIMES DAILY WITH MEALS, First dose on Mon11/14/21 at 0800, Until Discontinued, Obtain current Blood Glucose if necessary. May be given immediately before meal, during meal, or immediately after meal is eaten. Meal must be present before administration. $ Given 11/16/2021 5:17 PM CDT 3 Units Abd Left Lower Quadr ant $ Given 11/16/2021 12:20 PM CDT 3 Units A bd Right Lower Quadrant $ Given 11/16/2021 9:22 AM CDT 3 Units Ab d Left Lower Quadrant iopamidol (Isovue 370) 76 % contrast Intravenous, CONTRAST ONCE, Starting on Mon11/12/21 at 0027, Until Mon11/14/21 at 0026 $ Given - Contrast 11/12/2021 12:38 AM CDT 81 mL lactated ringers infusion at 75 mL/hr, Intravenous, CONTINUOUS, Starting on Mon11/12/21 at 0430, Until Mon11/12/21 at 1624 $ New Bag/Syringe 11/12/2021 4:18 AM CDT 75 mL/hr lactated ringers IV bolus 1,000 mL, at 983.61 mL/hr, Administer over 61 Minutes, NOW, 1 dose, On Mon11/11/21 at 1700 $ New Bag/Syringe 11/11/2021 11:18 PM CDT 1,000 mL 983.61 mL/hr meropenem (Merrem) 1,000 mg in 0.9% NaCl IV 50 mL IVPB 1,000 mg, at 100 mL/hr, Intravenous, EVERY 8 HOURS, First dose on Mon11/12/21 at 0600, Until Discontinued, Indication for anti-infective therapy: Documented infection, Site of anti-infective therapy: Lower Respiratory, Blood $ New Bag/Syringe 11/12/2021 6:28 AM CDT 1,000 mg 100 mL/hr ondansetron (Zofran) injection 4 mg 4 mg, Intravenous, NOW, 1 dose, On Valeri 11/11/21 at 2245, Administer over 2 to 5 minutes. $ Given 11/11/2021 11:19 PM CDT 4 mg oxyCODONE-acetaminophen (Percocet) 10-325 MG tablet 1 tablet 1 tablet, Oral, EVERY 6 HOURS PRN, Moderate Pain, Starting on Mon11/12/21 at 0347, Until Mon11/16/21 at 1948, Patient preference for lesser PRN pain meds may be honored when the patient requests a less strong medication, a lower dose, or a less intrusive route of administration when the lesser drug, dose and route have been ordered for the patient. This patient request must be documented in the MAR. $ Given 11/16/2021 2:31 PM CDT 1 tablet $ Given 11/16/2021 9:21 AM CDT 1 tablet $ Given 11/16/2021 12:58 AM CDT 1 tablet perflutren lipid microsphere (Definity) injection 0.5 mL 0.5 mL, Intravenous, INTRA-PROCEDURE MULTIPLE, 6 doses, Starting on Mon11/12/21 at 1555, Until Mon11/16/21 at 1948, For Echo Procedure - Per Protocol Give slowly Shake well before using. $ Given 11/12/2021 3:57 PM CDT 0.5 mL rivaroxaban (Xarelto) tablet 20 mg 20 mg, Oral, DAILY WITH DINNER, First dose on 11/13/21 at 1800, Until Discontinued, For tube administration, please refer to the MAR References links: Administration Dose of 15 mg or greater should be taken with food $ Given 11/16/2021 5:17 PM CDT 20 mg $ Given 11/15/2021 6:14 PM CDT 20 mg $ Given 11/14/2021 6:18 PM CDT 20 mg rOPINIRole (Requip) tablet 5 mg 5 mg, Oral, AT BEDTIME, First dose on Mon11/12/21 at 0400, Until Discontinued $ Given 11/15/2021 8:59 PM CDT 5 mg $ Given 11/14/2021 9:04 PM CDT 5 mg $ Given 11/13/2021 9:21 PM CDT 5 mg documented in this encounter Active and Recently Administered Medications Times are shown in CDT. Scheduled Medication Order 11/14/2021 11/15/2021 11/16/2021 0.9% NaCl injection 10-40 mL 10-40 mL, Intracatheter, EVERY 8 HOURS, First dose on Mon11/15/21 at 0845, Until Discontinued, Flush each lumen of mid-line with 10ml NS IVP every 8 hours (regardless of continuous IV infusion). Flushing may be contraindicated if concentrated drips are infusing. 0845 (Due)1334 (Not Administered - Provider: Altagracia Obregon RN - Reason: Loss of Access)2100 ($ Given - Provider: Joann Sow RN) 0621 ($ Given - Provider: Joann Sow RN)1430 ($ Given - Provider: Jennifer Dalton RN) acetaminophen (Tylenol) tablet 500 mg 500 mg, Oral, 3 TIMES DAILY, First dose on Mon11/13/21 at 1000, Until Discontinued, Patient preference for lesser PRN pain meds may be honored when the patient requests a less strong medication, a lower dose, or a less intrusive route of administration when the lesser drug, dose and route have been ordered for the patient. This patient request must be documented in the MAR. 0911 ($ Given - Provider: Keryr Anaya RN)1326 ($ Given - Provider: Kerry Anaya RN)210 ($ Given - Provider: Radha Sanchez RN) 0858 ($ Given - Provider: Altagracia Obregon RN)1429 ($ Given - Provider: Altagracia Obregon RN)205 ($ Given - Provider: Joann Sow RN) 0921 ($ Given - Provider: Jennifer Dalton RN)1430 ($ Given - Provider: Jennifer Dalton RN) amitriptyline (Elavil) tablet 25 mg 25 mg, Oral, AT BEDTIME, First dose on Mon11/12/21 at 2100, Until Discontinued 2103 ($ Given - Provider: Radha Sanchez RN) 2058 ($ Given - Provider: Joann Sow RN) ertapenem (INVanz) 1,000 mg in 0.9% NaCl IV 50 mL IVPB 1,000 mg (1 g), at 100 mL/hr, Intravenous, EVERY 24 HOURS, First dose on Mon11/12/21 at 1400, Until Discontinued, Indication for anti-infective therapy: Documented infection, Site of anti-infective therapy: Wound 1331 ($ New Bag/Syringe - Provider: Kerry Anaya RN)1420 (Stopped - Provider: Kerry Anaya RN) 1436 ($ New Bag/Syringe - Provider: Altagracia Obregon RN)1506 (Stopped - Provider: Altagracia Obregon RN) 1434 ($ New Bag/Syringe - Provider: Jennifer Dalton RN)1536 (Stopped - Provider: Jennifer Dalton RN) insulin glargine (Lantus) pen 10 Units 10 Units, Subcutaneous, DAILY, First dose (after last modification) on Mon11/14/21 at 0900, Until Discontinued, Obtain current Blood Glucose if necessary . WASTE DISPOSAL INSTRUCTIONS: Black Bin Disposal required. 0909 ($ Given - Provider: Kerry Anaya RN) 0900 ($ Given - Provider: Altagracia Obregon RN) 0922 ($ Given - Provider: Jennifer Dalton, NURIS) insulin lispro (HumaLOG;ADMelog) 100 UNIT/ML pen 0-6 Units 0-6 Units, Subcutaneous, 3 TIMES DAILY WITH MEALS, First dose on Mon11/12/21 at 0800, Until Discontinued, DO NOT HOLD CORRECTION BOLUS EVEN IF PATIENT IS NPO. If patient is eating meals and has orders for Mealtime Insulin Bolus, combine and give at the same time. BEDSIDE GLUCOSE MUST BE PERFORMED AND DOCUMENTED WITHIN 30-60 MINUTES OF CORRECTION INSULIN ADMINISTRATION. BG (mg/dL) LESS than 70 = follow Hypoglycemic guidelines 150-200 = give 1 unit 201-250 = give 2 units, 251-300 = give 3 units 301-350 = give 4 units 351-400 = give 5 units and notify physician GREATER than 400 = give 6 units and notify physician 0911 ($ Given - Provider: Kerry Anaya RN)1331 ($ Given - Provider: Kerry Anaya RN)1818 ($ Given - Provider: Kerry Anaya RN) 0900 ($ Given - Provider: Altagracia Obregon RN)1221 ($ Given - Provider: Altagracia Obregon RN)1815 ($ Given - Provider: Altagracia Obregon RN) 0921 ($ Given - Provider: Jennifer Dalton, NURIS)1219 ($ Given - Provider: Jennifer Dalton, NURIS)1717 ($ Given - Provider: Jennifer Dalton, NURIS) insulin lispro (HumaLOG;ADMelog) 100 UNIT/ML pen 3 Units 3 Units, Subcutaneous, 3 TIMES DAILY WITH MEALS, First dose on Mon11/14/21 at 0800, Until Discontinued, Obtain current Blood Glucose if necessary. May be given immediately before meal, during meal, or immediately after meal is eaten. Meal must be present before administration. 0910 ($ Given - Provider: Kerry Anaya RN)1332 ($ Given - Provider: Kerry Anaya RN)1819 ($ Given - Provider: Kerry Anaya RN) 0859 ($ Given - Provider: Altagracia Obregon RN)1333 ($ Given - Provider: Altagracia Obregon RN)1815 ($ Given - Provider: Altagracia Obregon RN) 0922 ($ Given - Provider: Jennifer Dalton, NURIS)1220 ($ Given - Provider: Jennifer Dalton RN)1717 ($ Given - Provider: Jennifer Dalton RN) perflutren lipid microsphere (Definity) injection 0.5 mL 0.5 mL, Intravenous, INTRA-PROCEDURE MULTIPLE, 6 doses, Starting on Mon11/12/21 at 1555, Until Mon11/16/21 at 1948, For Echo Procedure - Per Protocol Give slowly Shake well before using. rivaroxaban (Xarelto) tablet 20 mg 20 mg, Oral, DAILY WITH DINNER, First dose on Mon11/13/21 at 1800, Until Discontinued, For tube administration, please refer to the MAR References links: Administration Dose of 15 mg or greater should be taken with food 181 ($ Given - Provider: Kerry Anaya RN) 1814 ($ Given - Provider: Altagracia Obregon RN) 1717 ($ Given - Provider: Jennifer Dalton RN) rOPINIRole (Requip) tablet 5 mg 5 mg, Oral, AT BEDTIME, First dose on Mon11/12/21 at 0400, Until Discontinued 2103 ($ Given - Provider: Radha Sanchez RN) 2058 ($ Given - Provider: Joann Sow RN) PRN Medication Order 11/14/2021 11/15/2021 11/16/2021 0.9% NaCl injection 10-40 mL 10-40 mL, Intravenous, PRN, Other, mid-line flush, Starting on Mon11/15/21 at 0802, Until Mon11/16/21 at 1948, Flush each lumen of mid-line with 10ml NS IVP before and after medication/solution administration, before and after blood product administration, when obtaining blood sample, discard 5-10ml blood, then obtain sample. Upon completion, pulse flush with 20ml sterile NS IVP and PRN to determine patency. ALPRAZolam (Xanax) tablet 0.5 mg 0.5 mg, Oral, 3 TIMES DAILY PRN, Anxiety, Starting on Mon11/12/21 at 0337, Until Mon11/16/21 at 1947 2104 ($ Given - Provider: Radha Sanchez, RN) 1429 ($ Given - Provider: Altagracia Obregon RN) dextrose IV 12.5 g(Linked Group 1) 12.5 g, Intravenous, PRN, Other, Bedside Glucose less than 70 mg/dL -If NOT able to eat and/or NPO and with IV Access, Starting on Mon11/12/21 at 033, Until Mon11/16/21 at 1947, If NOT able to eat and/or NPO [...] mg/dl. NOTIFY PROVIDER OF HYPOGLYCEMIC EVENT. dextrose IV 25 g(Linked Group 1) 25 g, Intravenous, PRN, Other, Bedside Glucose less than 70 mg/dL -If NOT able to eat and/or NPO and with IV Access, Starting on Mon11/12/21 at 033, Until Mon11/16/21 at 1947, If NOT able to eat and/or NPO [...] 80 mg/dl. NOTIFY PROVIDER OF HYPOGLYCEMIC EVENT. glucagon (Glucagen) injection 1 mg 1 mg, Intramuscular, PRN, Bedside Glucose less than 70 mg/dL - If NOT able to eat and/or NPO and withOUT IV Access, Starting on Mon11/12/21 at 033, Until Mon11/16/21 at 1947, If NOT able to eat and/or NPO and NO IV Access: For Bedside glucose 54-69 mg/dL Give 1 mg IM or SQ For Bedside Glucose LESS than 54 mg/dl verify with a second bedside glucose (from a different site) and Give 1 mg IM or SQ Re-check and Re-treat blood glucose EVERY 10-25 minutes until blood glucose GREATER than or equal to 80 mg/dl. NOTIFY PROVIDER OF HYPOGLYCEMIC EVENT. Reconstitute vial with 1 mL of sterile water for injection for a final concentration of 1 mg/mL; shake vial gently; use immediately and discard unused portion glucose (Diabetic Use) (Dex4 Glucose) oral liquid Oral, PRN, Other, Bedside Glucose less than 70 mg/dL -If able to eat and does not have swallowing difficulties, Starting on Mon11/12/21 at 033, Until Mon11/16/21 at 1947, If able to eat and can swallow [...] pt is symptomatic, do not delay treatment Consider confirming the glucose with a STAT laboratory test Give [...] 80 mg/dl. NOTIFY PROVIDER OF HYPOGLYCEMIC EVENT. glucose (Diabetic Use) oral gel Oral, PRN, Other, Bedside Glucose less than 70 mg/dL -If able to eat and does not have swallowing difficulties, Starting on Mon11/12/21 at 033, Until Mon11/16/21 at 1947, If able to eat and is better [...] pt is symptomatic, do not delay treatment Consider confirming the glucose with a STAT laboratory test Give [...] 80 mg/dl. NOTIFY PROVIDER OF HYPOGLYCEMIC EVENT. glucose chew tablet 4 tablet 4 tablet (16 g), Oral, PRN, Other, Bedside Glucose less than 70 mg/dL -If able to eat and does not have swallowing difficulties, Starting on Mon11/12/21 at 0338, Until Mon11/16/21 at 1948, If able to eat and does not [...] pt is symptomatic, do not delay treatment Consider confirming the glucose with a STAT laboratory test Give 32 grams of oral carbohydrates - 8 glucose tabs (see MAR) If patient refuses glucose gel, then offer: - 8 ounces of fruit juice OR - 8 ounces non-diet soda OR - 16 ounces of fat-free milk Re-check and Re-treat blood glucose EVERY 10-25 minutes until blood glucose GREATER than or equal to 80 mg/dl. NOTIFY PROVIDER OF HYPOGLYCEMIC EVENT. hydrOXYzine HCl (Atarax) tablet 25 mg 25 mg, Oral, 4 TIMES DAILY PRN, Itching, Starting on 11/13/21 at 0906, Until Mon11/16/21 at 1948 1429 ($ Given - Provider: Altagracia Obregon RN) oxyCODONE-acetaminophen (Percocet) 10-325 MG tablet 1 tablet 1 tablet, Oral, EVERY 6 HOURS PRN, Moderate Pain, Starting on Mon11/12/21 at 0347, Until Mon11/16/21 at 1947, Patient preference for lesser PRN pain meds may be honored when the patient requests a less strong medication, a lower dose, or a less intrusive route of administration when the lesser drug, dose and route have been ordered for the patient. This patient request must be documented in the MAR. 0529 ($ Given - Provider: Radha Sanchez, RN)1326 ($ Given - Provider: Kerry Anaya RN)2104 ($ Given - Provider: Radha Sanchez, RN) 0427 ($ Given - Provider: Radha Sanchez, RN)1153 ($ Given - Provider: Altagracia Obregon RN) 0058 ($ Given - Provider: Joann Sow RN)0921 ($ Given - Provider: Jennifer Dalton, RN)1431 ($ Given - Provider: Jennifer Dalton, RN) Linked Groups Order Group 1: dextrose IV 12.5 gJump to med 12.5 g, Intravenous, PRN, Other, Bedside Glucose less than 70 mg/dL -If NOT able to eat and/or NPO and with IV Access, Starting on Mon11/12/21 at 0338, Until Mon11/16/21 at 1947, If NOT able to eat and/or NPO [...] NOTIFY PROVIDER OF HYPOGLYCEMIC EVENT. Or dextrose IV 25 gJump to med 25 g, Intravenous, PRN, Other, Bedside Glucose less than 70 mg/dL -If NOT able to eat and/or NPO and with IV Access, Starting on Mon11/12/21 at 0338, Until Mon11/16/21 at 1947, If NOT able to eat and/or NPO and with IV Access: For Bedside Glucose 54- 69 mg/dL give 12.5 g Dextrose IV STAT For Bedside Glucose LESS than 54 mg/dl verify with a second Bedside Glucose (from a different site) and give 25 g Dextrose IV STAT Re-check and Re-treat blood glucose EVERY , 10-25 minutes until blood glucose GREATER than or equal to 80 mg/dl. NOTIFY PROVIDER OF HYPOGLYCEMIC EVENT. documented in this encounter Care Teams [employer] Relationship Specialty Start Date End Date Justen Gale MD PCP - General 07/05/21 documented as of this encounter
--- OUTSIDE RECORDS SUMMARY | 2024-04-26 02:33 | XMS_ITS | Encounter Summary ---
Author Organization [facility] Address [address] [place] [address] Care Team Providers Care Monitoring And Evaluation Advisor Name Role Phone Justen Gale MD Primary Care Provider [phone] Reason for Visit * Reason Comments POST-OP PROBLEM BIBself with c/o pos t op problem. Pt states tenderness on R lower back incision and difficulty walking starting yesterday. Encounter Details Date Type Department Care Team (Late st Contact Info) Description 11/22/2021 11:52 PM CDT - 11/22/2021 11:53 PM CDT Emergency [facility] EMERGENCY DEPARTMENT [address] [place] [phone] Procedure and treatment not carried out because of patient's decision for unspecified reasons Discharge Disposition: Left Against Medical Advice/Discontinued Care [...] Sign Reading Time Taken Comments Blood Pressure 162/86 11/22/2021 6:37 PM CDT Pulse 111 11/22/2021 6:37 PM CDT Temperature 36.5 ??C (97.7 ??F) 11/22/2021 6:37 PM CD T Respiratory Rate 18 11/22/2021 6:37 PM CDT Oxygen Saturation 97% 11/22/2021 6:37 PM CDT Inhaled Oxygen Concentration - - Weight 130.2 kg (287 lb) 11/22/2021 6:37 PM CDT Height 154.9 cm (5' 1 ) 11/22/2021 6:37 PM CDT Body Mass Index 54.23 11/22/2021 6:37 PM CDT documented in this encounter Functional [...] nasal spray as needed 05/13/2021 04/20/2023 NYSTOP [id number] UNIT/GM powder APPLY TO THE AFFECTED AREA [...] as of this encounter ED Notes * Sara Villanueva RN - 11/22/2021 11:51 PM CDT Pt left ED d/t long waits and says she will call her Dr in the morning. Pt taken out of system * Stephanie Olivera PA-C - 11/22/2021 11:24 PM CDT Pt states she is wanting to leave and is going to call her ride. documented in this encounter Plan of Treatment Not on file documented as of this encounter Visit Diagnoses Diagnosis Procedure and treatment not carried out because of patient's decision for unspecified reasons documented in this encounter Care Teams Monitoring And Evaluation Advisor Relationship Specialty Start Date End Date Justen Gale MD PCP - General 07/05/21 documented as of this encounter
--- OUTSIDE RECORDS SUMMARY | 2024-04-26 02:33 | XMS_ITS | Encounter Summary ---
Author Organization [facility] Address [address] [place] [address] Care Team Providers Care International Marketing Coordinator Name Role Phone Justen Gale MD Primary Care Provider [phone] Reason for Visit * Reason Onset Date Comments Transitions Of Care 11/22/2021 Encounter Details Date Type Department Care Team (Late st Contact Info) Description 11/22/2021 Telephone [facility] CARE COORDINATION [address] [place] [phone] Bianca Daugherty, RN Transitions Of Care Social History Tobacco [...] encounter Miscellaneous Notes * Telephone Encounter - Bianca Daugherty RN - 11/22/2021 4:01 PM CDT Transition Charger Operator Helper (TCC) post discharge follow-up contact by telephone. Patient contact TCC by telephone to ask what she should do about a new pain that she has been having.Patient verbalized that she has been having pain in her lower back that radiates to her hip, his has been going on on for about 24 hours. Patient states that the pain feels like it is deep in her back and seems to be getting worse, patient said that she was not sure if she should wait for her nextappointment or not. Patient was recommended to contact her PCP to follow up and notify them of thisnew problem that she is having. Patient verbalized understanding and agreement with plan. Patient said that she will contact her PCP's office today. Call Duration: 3 minutes Bianca Daugherty RN Transition Charger Operator Helper Office: [phone] 11/22/2021 documented in this encounter Plan of Treatment Not on file documented as of this encounter Visit Diagnoses Not on filedocumented in this encounter Care Teams International Marketing Coordinator Relationship Specialty Start Date End Date Justen Gale MD PCP - General 07/05/21 documented as of this encounter
--- OUTSIDE RECORDS SUMMARY | 2024-04-26 02:33 | XMS_ITS | Encounter Summary ---
Author Organization [facility] Address [address] [facility] [place] [address] Care Team Providers Care Joiner Helper Name Role Phone Justen Gale MD Primary Care Provider [phone] Reason for Visit * Reason Comments Post-Op SCS Encounter Details Date Type Department Care Team (Late st Contact Info) Description 10/04/2021 2:00 PM CDT Office Visit [facility] Neurosurgery [address] [place] [address], [place] [phone] Dasia Mendoza, ASSOCIATE PROFESSOR OF H[employer]ORY[employer] [address] [place] [address] [place] [address] S/P insertion of spinal cord stimulator (Primary [...] Sign Reading Time Taken Comments Blood Pressure 148/79 10/04/2021 2:10 PM CDT Pulse 81 10/04/2021 2:10 PM CDT Temperature 36.8 ??C (98.2 ??F) 10/04/2021 2:10 PM CD T Respiratory Rate - - Oxygen Saturation 96% 10/04/2021 2:10 PM CDT Inhaled Oxygen Concentration - - Weight 129.3 kg (285 lb) 10/04/2021 2:10 PM CDT Height 154.9 cm (5' 1 ) 10/04/2021 2:10 PM CDT Body Mass Index 53.85 10/04/2021 2:10 PM CDT documented in this encounter Patient Instructions * Patient Instructions* Dasia Mendoza APRN-CNP - 10/04/2021 2:18 PM CDT No lifting, bending, or twisting for 4 weeks -then increase activity as tolerated Keep incision clean and dry -do not submerge in water until completely healed -contact our office with signs of infection (redness, swelling, drainage) Follow up with Dr. Gregg in 6-8 weeks for a wound check For any questions call Sonali at [phone] documented in this encounter Progress Notes * Dasia Mendoza APRN-CNP - 10/04/2021 2:11 PM CDT Neurosurgery Clinic Progress Note Chief Complaint (CC): Follow up spinal stimulation HISTORY OF PRESENT ILLNESS (HPI): Patient is a 66 year old female with a history of chronic axial low back pain and leg pain who underwent a successful trial with dorsal column stimulation with the [facility] system, s/p T8-T9 laminectomy for placement of a dorsal column stimulation system and placement of the battery in the right lower lumbar region on 09/16/[address] Gregg, who presents to clinic today for a 2 week follow up and wound clinic. The patient reports doing overall well since surgery, but has some incisional pain. Her leg pain has completely resolved with stimulation. She was seen in the ED on 09/23/2021 for a rash and itching, felt to be contact dermatitis from prineo dressing. There was low suspicion for infection of her wound since there was no dehiscence or drainage, and patient was already on bactrum for UTI. Since her ER visit, she reports improvement in her rash. She denies any new weakness, numbness, orradicular pain. Patient is currently managing pain with norco and muscle relaxants prescribed by her pain management physician. PMH: Past Medical History: Diagnosis Date ??? [...] are noted in HPI. PHYSICAL EXAM BP 148/79 Pulse 81 Temp 98.2 ??F (36.8 ??C) (Temporal) Ht 5' 1 (1.549 m) Wt 285 lb (129.3 kg) [id number]% BMI 53.85 kg/m2 General: No acute distress. HEENT: pupils equal and reactive to light, extra-occular muscles intact, face symmetric, tongue midline. Cardiovascular: warm, well profused Respiratory: non-labored breathing Integument: Scattered rash across posterior trunk. Thoracic incision has resorbable sutures in place. No erythema, edema, or drainage noted. Right lower lumbar incision has resorbable sutures in place. No erythema or edema noted. Small amount of drainage noted on clothing, but no fluid collection of drainage from incision when palpated. Neuro: Mental status: Alert, attentive, and oriented x3 (name, place, date). Speech is clear and fluent. Motor: Muscle bulk and tone are normal. Deltoid Bicep Tricep Real Estate Development Manager Wrist Ext Finger ext Hip Flexor Quad Hamstring Tib Ant Gastroc EHL Right 5 5 5 5 5 5 5 5 5 5 5 5 Left 5 5 5 5 5 5 5 5 5 5 5 5 Reflexes: No Clonus, No Shankar's Patellar Achilles Right 2+ 2+ Left 2+ 2+ Sensory: Light touch intact in upper and lower extremities Coordination: No fasciculations Gait/Stance: Posture is normal. Ambulates with cane, in wheelchair on exam RADIOLOGY: No new neuroradiological imaging for review. Assessment/Plan: Karly Marques is a 66 year old female with history of chronic axial low back pain and leg pain refractory to medical management, s/p T8-T9 laminectomy for placement of a dorsal column stimulationsystem and placement of the battery ([facility]) in the right lower lumbar region on 09/16/[address] Gregg, who presents to clinic today for a 2 week follow up and wound clinic. The patient is doing well since surgery, with complete resolution in leg pain but she continues to endorse some incisional pain. Patient also has improvement in her rash that developed post op. Her incisions are healing well, resorbable sutures remain in place. There was some evidence of drainage on clothing near right lower lumbar generator incision, however her incision was dry with no evidence of drainage or infection on palpation. [employer] distribution sales representative available today to assist with stimulation parameters. We willplan to have the patient follow up with Dr. Gregg in 6 weeks. ITA Cabello 10/04/2021 2:36 PM documented in this encounter Plan of Treatment Not on file documented as of this encounter Visit Diagnoses Diagnosis S/P insertion of spinal cord stimulator- Primary documented in this encounter Care Teams Joiner Helper Relationship Specialty Start Date End Date Justen Gale MD PCP - General 07/05/21 documented as of this encounter
--- OUTSIDE RECORDS SUMMARY | 2024-04-26 02:33 | XMS_ITS | Encounter Summary ---
Author Organization [facility] Address [address] [place] [address] Care Team Providers Care Gyn Name Role Phone Justen Gale MD Primary Care Provider [phone] Reason for Visit * Reason Comments WOUND INFECTION Patient a transfer f [facility] for neurosurgical stimulator complications and wound infection to right buttocks stage 1. POST-OP PROBLEM * Auth/Cert Specialty Diagnoses / Procedures Referred By Vimalac t Referred To Contact Referral ID Status Reason Start Date Expiration Date Visits Re quested Visits Authorized [id number] 1 1 Encounter Details Date Type Department Care Team (Latest Contact Info) Description 10/30/2021 3:05 AM CDT - 11/06/2021 2:13 PM CDT Hospital Encounter [facility]ORT STAY UNIT [address] [place] [id number] Lila Castillo MD [address] [place] [address] [place] [address] [place] [address] Maxi Gregg MD [address] [facility] 2[address] [place] [id number] Neurosurgery Discharge Disposition: Home Health Care Svc Social [...] more drinks on one occasion? Never 10/30/2021 Hunger Vital Sign Answer Date Recorded Within the past 12 months, y ou worried that your food would run out before you got the money to buy more. Never true 11/02/19 22 Within the past 12 months, t he food you bought just didn't last and you didn't have money to get more. Never true 11/01/2021 Sex and Gender Information Value Date Recorded Sex Assigned at Not on file Gender Identity Not on file Sexual Orientation Not on file documented as of this encounter Last Filed Vital Signs Vital Sign Reading Time Taken Comments Blood Pressure 143/92 11/06/2021 7:31 AM CDT Pulse 82 11/06/2021 7:31 AM CDT Temperature 36.8 ??C (98.3 ??F) 11/06/2021 7:31 AM CD T Respiratory Rate 16 11/06/2021 7:31 AM CDT Oxygen Saturation 99% 11/06/2021 7:31 AM CDT Inhaled Oxygen Concentration 21% 11/04/2021 6 :04 AM CDT Weight 129.3 kg (285 lb) 10/30/2021 3:10 AM CDT Height 154.9 cm (5' 1 ) 10/30/2021 3:10 AM CDT Body Mass Index 53.85 10/30/2021 3:10 AM CDT documented in this encounter Functional Status Functional Status Response Date of Assess ment Is person deaf or have serious hearing difficult y? No 10/30/2021 Is person blind or have serious difficulty seein g? No 10/30/2021 Does person have serious dif ficulty walking/climbing stairs? No 10/30/2021 Does person have difficulty dressing/bathing? No 10/30/2021 Does person have difficulty doing errands alone? No 10/30/2021 Cognitive Status Response Date of Assessm ent Does person have difficulty concentrating/remembering/making decisions? No 10/30/2021 documented as of this encounter Discharge Summaries * Ramon Jacobs MD - 11/06/2021 10:34 AM CDT Physician Discharge Summary Patient ID: Mohsen Marques [id number] 66 year old 1955 Admit date: 10/30/2021 Discharge date and time: No discharge date for patient encounter. Admitting Physician: Maxi Gregg MD Discharge Physician: Ramon Jacobs MD Admission Diagnoses: No admission diagnoses are documented for this encounter. Discharge Diagnoses: Wound infection complicating hardware Admission Condition: fair Discharged Condition: good Indication for Admission: Wound infection Hospital Course: You came to the hospital on 10/30/2021 with worsening back pain,fever, and wound drainage. Given your history of T9-8 laminectomy for dorsal root column stimulator placement on 09/16/21, this was highly concerning for infection. You underwent surgery on 10/30 for spinal cord stimulator battery removal with preservation of leads and other parts of the machine. Wound and blood cultures were taken to look for the specific organism causing your infection. The surgery went well and you did not require any resuscitative efforts like blood or platelet transfusions. The infectious disease team was consulted. They recommended intravenous vancomycin and meropenam while awaiting the results of your wound and blood cultures. On 11/03, your cultures grew out E. Coli that was susceptible to a number of antibiotics. Due to your allergy to cephalosporins, the infectious disease team recommended IV ertapenam for 4 weeks until 11/30/2021. In order to keep you on IV antibiotics at home, a peripherally inserted central line (PICC) was needed. On 11/03, you reported increased pain for which we increased your pain medications with good results. On 11/05, you had the PICC line placed. On 11/05, you told us about new-onset chest pain on your right side that worsened with inspiration (your pulse and oxygen saturation were normal). Given your history of breast cancer and blood clots,we did EKG, serum troponins, d- dimer, and bilateral lower extremity ultrasound. All tests were normal; the d- dimer was elevated, but this was expected given your recent surgery. Your symptom improvedthroughout the day and next day. On 11/06, your drain and wound dressings were removed. You were discharged in stable condition. Consults: ID, interventional radiology, home health Significant Diagnostic Studies: See hospital course Treatments: See hospital course Discharge Exam: Lumbosacral spine area reveals no local tenderness or mass. Neurological exam reveals normal without focal findings, mental status, speech normal, alert and oriented x iii, GISELA, cranial nerves 2-12 intact, muscle tone and strength normal and symmetric, reflexes normal and symmetric, sensation grossly normal, gait and station normal, no tremors, cogwheeling or rigidity noted. Disposition: Home health Patient Instructions: Neurosurgery Inpatient Discharge Instructions Diet: regular diet Brace Instructions If you were given a brace for your neck, back, or head please follow the below instructions carefully. Wound care after surgery: 1. Avoid getting your wound wet. 2. Do not cover the wound unless you were told to do so. 3. Keep completely dry for first 3 days after surgery. 4. Can shower after 3 days but dab the wound dry right after. 5. No bath tubs or swimming until 4 weeks after surgeon, and cleared by your surgeon. 6. If you have stiches/john they will be removed at your follow up appointment. Eating regular diet Do not drink alcohol or take tranquilizers. Try to eat healthy foods and drink lots of water About your medicines: Take medicine you normally would take UNLESS they were changed in the hospital. Do not take medicine that has not been prescribed by your doctors. Make sure to follow the instructions on your medicine and do you best to take it as need. If you have questions regarding the medications you were sent home on please call [phone], and ask for the Neurosurgery resident it operations analyst. Do not sign important papers or make important decisions while taking narcotic pain medicines. Do have a person with you that can help you and that you can trust Do ask family or friends to check up on you for a few days following surgery if you live alone. See your after visit summary (included in your discharge paper work) for a list of your medications. Activity: You have just been in the hospital, it will take time to recover fully. Make sure to rest, eat healthy foods, drink plenty of water, and take your medication as directed. Light activity is ok, and is encouraged, but do not do things which cause you to become short of breath, lift heavy objects, walk or stand for a long period of time, or make your heart beat fast. If you start to do an activity, and start to feel sick, sit down and rest. Specifically: Do not lift more than 5-10 pounds at a time (no more than a gallon of milk) Do not heavy activity until cleared by your surgeon at your follow-up appointment. Stay lightly active in side home Have someone with you while climbing/descending stairs You can go out for walks, but always have someone with you NO contact sports, no heavy lifting, no heavy activity, no swimming until you are seen for follow up. Do not drive while taking narcotic pain medicine, or other medicines which make you feel tired orsleepy. Drivin. Do not drive until you are cleared by surgeons. 2. Do not driving while on narcotic pain medications 3. Do not drive if you were told you had a seizure Follow up: 1) Please see Dr. Gregg in his office in 2 weeks for a wound checkup and suture removal - For clinic appointment information call Shaun Larkin at [phone]. - Also, you can call Outpatient Warehouseman at [phone]. 2) Please see Dr. Rodriguez (infectious disease) on 12/06 for follow-up of your infection. Your appointmenthas already been scheduled. - Please make time to come to the [facility] outpatient laboratory once every week to have blood work done. These tests are important to assess if your infection is being well treated. 3) Please see your family doctor for follow up regarding your health after surgery. General Postsurgical Instructions Call or find medical care if: You feel sick to your stomach (nauseous). You start to throw up (vommit). You have trouble eating or drinking. You have an fever higher than 102?? F (38.9?? C). You have constipation that is not helped by adjusting diet or drinking more water . Pain medicines are a common cause of constipation. Go to an Emergency Room or call 911 if: Redness or leaking from your incision wound. Very bad headache Trouble seeing Trouble breathing You become very confused You have new weakness, trouble speaking or understand what is being said have balance problems, or have facial drooping You have a seizure, or you pass out/lose consciousness If you have any questions about these instructions please call: [phone], ask for the Neurosurgery resident it operations analyst. This list of medications is preliminary and tentative: please see the Patient Discharge Instructions for patient's discharged home or the Facility Transfer Order for the final and accurate medications list. Current Discharge Medication List START taking these medications Details ertapenem 1,000 mg in 0.9% NaCl IV 0.9 % 50 mL 1,000 (one thousand) mg by Intravenous route every 24 hours for 24 days CONTINUE these medications which have NOT CHANGED Details amitriptyline (ELAVIL) 25 MG tablet at bedtime !! B-D ULTRAFINE III SHORT PEN 31G X [...] every 6 hours as needed for Pain !! insulin pen needle (B-D ULTRAFINE III SHORT PEN) 31G X 8 MM needle USE 6 TIMES DAILY DIRECTED !! Lancets (ONETOUCH DELICA PLUS 33G EXTRA FINE LANCET) USE FOUR TIMES DAILY LANTUS SOLOSTAR pen ADMINISTER 50 UNITS UNDER THE SKIN EVERY MORNING naloxone HCl (NARCAN) 4 MG/0.1ML nasal spray CALL 911. SPR CONTENTS OF ONE SPRAYER (0.1ML) INTO ONENOSTRIL. REPEAT IN 2-3 MIN IF SYMPTOMS OF OPIOID EMERGENCY PERSIST, ALTERNATE NOSTRILS !! OneTouch Delica Lancets 33G MISC Use 4 times daily ONETOUCH ULTRA test strip 4 times daily oxybutynin (DITROPAN) 5 MG tablet Take 5 mg by mouth TID. rivaroxaban (XARELTO) 10 MG tablet Take 20 mg by mouth daily with dinner. rOPINIRole (REQUIP) 5 MG tablet TAKE 1 TABLET BY MOUTH EVERY NIGHT !! - Potential duplicate medications found. Please discuss with provider. Contact information for follow-up providers Justen Gale MD Specialty: Family Medicine Relationship: PCP - General [facility] [address] Next Steps: Follow up Instructions: After discharge Maxi Gregg MD Specialty: Neurological Surgery [address] OF NEUROSURGERY [facility] [address] Next Steps: Follow up Instructions: Please follow-up with Dr. Gregg in 1-2 weeks for suture removal. You will be contacted about your appointment Jazmyne Torres MD Specialty: Infectious Disease [address] [id number] Next Steps: Follow up Instructions: Please follow-up with Dr. Rodriguez in infectious disease on 12/06/21. Your appointment has already been scheduled. Contact information for after-discharge [facility] Service: Home Health Services [address] [place] [address] [facility] Service: Home Health Services [id number] [facility] [phone] Ramon Jacobs MD 11/06/2021 10:49 AM documented in this encounter Discharge Instructions * Discharge Instructions* Ramon Jacobs MD - 11/06/2021 10:48 AM CDT Neurosurgery Inpatient Discharge Instructions Diet: regular diet Brace Instructions If you were given a brace for your neck, back, or head please follow the below instructions carefully. Wound care after surgery: 1. Avoid getting your wound wet. 2. Do not cover the wound unless you were told to do so. 3. Keep completely dry for first 3 days after surgery. 4. Can shower after 3 days but dab the wound dry right after. 5. No bath tubs or swimming until 4 weeks after surgeon, and cleared by your surgeon. 6. If you have stiches/john they will be removed at your follow up appointment. Eating regular diet Do not drink alcohol or take tranquilizers. Try to eat healthy foods and drink lots of water About your medicines: Take medicine you normally would take UNLESS they were changed in the hospital. Do not take medicine that has not been prescribed by your doctors. Make sure to follow the instructions on your medicine and do you best to take it as need. If you have questions regarding the medications you were sent home on please call [phone], and ask for the Neurosurgery resident it operations analyst. Do not sign important papers or make important decisions while taking narcotic pain medicines. Do have a person with you that can help you and that you can trust Do ask family or friends to check up on you for a few days following surgery if you live alone. See your after visit summary (included in your discharge paper work) for a list of your medications. Activity: You have just been in the hospital, it will take time to recover fully. Make sure to rest, eat healthy foods, drink plenty of water, and take your medication as directed. Light activity is ok, and is encouraged, but do not do things which cause you to become short of breath, lift heavy objects, walk or stand for a long period of time, or make your heart beat fast. If you start to do an activity, and start to feel sick, sit down and rest. Specifically: Do not lift more than 5-10 pounds at a time (no more than a gallon of milk) Do not heavy activity until cleared by your surgeon at your follow-up appointment. Stay lightly active in side home Have someone with you while climbing/descending stairs You can go out for walks, but always have someone with you NO contact sports, no heavy lifting, no heavy activity, no swimming until you are seen for follow up. Do not drive while taking narcotic pain medicine, or other medicines which make you feel tired orsleepy. Drivin. Do not drive until you are cleared by surgeons. 2. Do not driving while on narcotic pain medications 3. Do not drive if you were told you had a seizure Follow up: 1) Please see Dr. Gregg in his office in 2 weeks for a wound checkup and suture removal - For clinic appointment information call Shaun Hermannclaudia at [phone]. - Also, you can call Outpatient Warehouseman at [phone]. 2) Please see Dr. Rodriguez (infectious disease) on 12/06 for follow-up of your infection. Your appointmenthas already been scheduled. - Please make time to come to the [facility] outpatient laboratory once every week to have blood work done. These tests are important to assess if your infection is being well treated. 3) Please see your family doctor for follow up regarding your health after surgery General Postsurgical Instructions Call or find medical care if: You feel sick to your stomach (nauseous). You start to throw up (vommit). You have trouble eating or drinking. You have an fever higher than 102?? F (38.9?? C). You have constipation that is not helped by adjusting diet or drinking more water . Pain medicines are a common cause of constipation. Go to an Emergency Room or call 911 if: Redness or leaking from your incision wound. Very bad headache Trouble seeing Trouble breathing You become very confused You have new weakness, trouble speaking or understand what is being said have balance problems, or have facial drooping You have a seizure, or you pass out/lose consciousness If you have any questions about these instructions please call: [phone], ask for the Neurosurgery resident it operations analyst. documented in this encounter Medications at Time [...] mg subcutaneously every 12 hours 08/19/2021 11/16/2021 ertapenem 1,000 mg in 0.9% NaCl IV 0.9 % 50 mL 1,000 (one thousand) mg by Intravenous route every 24 hours for 24 days 24 Each 11/06/2021 11/30/2021 HUMALOG KWIKPEN 100 UNIT/ML pen ADMINISTER 22 [...] Take 5 mg by mouth TID. 04/20/201710/23 oxyCODONE, immediate release, (ROXICODONE) 10 MG tablet Take 1 (one) tablet by mouth 2 times daily as needed 28 tablet 11/06/2021 11/16/2021 rivaroxaban (XARELTO) 10 MG tablet Take 20 mg by mouth daily with dinner. 04/20/2017 11/24/2021 tiZANidine (ZANAFLEX) 4 MG tablet 09/16/2021 04/04/2022 documented as of this encounter Progress Notes * Shanthi Ross - 11/06/2021 2:13 PM CDT Discharge Warehouseman received request from Dr. Soraida Jacobs to reschedule follow up appointment for Patient with Neurosurgery. This senior medical writer called [phone] and spoke with Abiola. Warehouseman was able to obtain follow-up appointment for Patient with GEAR GRINDER Dasia Mendoza on Monday November 15, 2021 at 4:00 pm. No further follow-up needs from operations scheduler indicated at this time. Shanthi Ross, Discharge Warehouseman 11/08/2021 * Ashleigh Ontiveros RN - 11/06/2021 2:12 PM CDT Pt given dc instructions verbalized understanding * Camila Varela PharmD - 11/06/2021 1:09 PM CDT MEDICATION TO BEDSIDE DELIVERY: COMPLETE Medication to Bedside delivery was completed for Mohsen Marques. ??? A total of 1 prescriptions were delivered to the patient for discharge. ??? Medications were given to PATIENT (MOHSEN) ??? This delivery included a controlled substance: YES, given to MOHSEN ??? This delivery included medication that should be stored in the fridge: NO Thank you for allowing the outpatient pharmacy to participate in the care of Mohsen Marques. If you have any questions, please contact the outpatient pharmacy at [phone]. Camila Varela PharmD [facility] at [address], [address] Floor [place], [place] [address] Hours of Operation Monday - Monday: 8:00am to 6:00pm Monday: 9:00am to 1:00pm Epic: [facility] *Ensure the patient and clinic's nearby ZIP codes box is unchecked* * Ashleigh Ontiveros RN - 11/06/2021 12:09 PM CDT Pt up in chair * Yeni Rivera RN - 11/06/2021 12:00 PM CDT Discharge Date: 11/06/21 Transportation at time of Discharge: Family Family Member who will transport: Yunior Velez Daughter ? [phone] Ambulance Arranged: n/a Home Health Care Accepting Agency: [facility] Call to confirm [facility]. Agreed. Phone Number for Home Health Care Agency: [facility] Iv atb: [facility]: [phone] Date Services to begin: 11/10/21 Comments: Yeni Rivera Rn [facility] Maintenance Service TechnicianBleacher [employer]: [phone] 11/06/2021 * Ramon Jacobs MD - 11/06/2021 11:51 AM CDT PAIGE drain removal note The drain exit site was cleaned with alcohol pad. Stitch was cut around the right back drain, whichwas then pulled out without any issues. A single, interrupted stitch with 3-0 monocryl was placed to close the drain exit site. Ramon Jacobs MD 11/06/2021 11:53 AM * Ramon Jacobs MD - 11/06/2021 9:29 AM CDT Neurosurgery Progress Note Mohsen Marques 11/06/21 Hospital Day: 7 Subjective VSS No acute events Pain well controlled overnight Denies f/c, SOB, n/v, numbness, weakness PICC line placed yesterday R chest pain is improved since yesterday Denies SOB, calf pain, cough Objective: T: 98.3 ??F (36.8 ??C) [Temp Min: 97.5 ??F (36.4 ??C) Max: 99.5 ??F (37.5 ??C)] BP: 143/92[BP Min: 105/75 Max: 154/71] MAP: 109[MAP (mmHg) Min: 86 Max: 109] HR: 82[Pulse Min: 71 Max: 99] RR: 16[Resp Min: 15 Max: 18] Sat: 99 %[SpO2 Min: 94 % Max: 100 %] ICP: [No data recorded] Input/Output: 11/05 0701 - 11/06 0700 In: 630 [P.O.:630] Out: 1160 [Urine:1150; Drains:10] PAIGE/Other Drain: 10ml Respiratory: ra Labs: Recent Labs Component Name 10/31/21 1155 WBC 18.5* HGB 12.2 HCT 38.2 PLTCOUNT 283 Recent Labs Component Name 10/31/21 1155 NA 137 POTASSIUM 4.1 CO2 28 BUN 15 CREATININE 0.66 CALCIUM 9.1 GLUCOSE 291* Recent Labs Component Name 10/31/21 1155 INR 1.3 PTT 34.1 Imaging: BLE u/s (11/06/2021) No evidence of DVT in the visualized veins of the bilateral lower extremities by this exam. Diet: DIET DIABETIC CONSIST CARB MEDICATIONS FOR CURRENT ENCOUNTER: SCHEDULED MEDICATIONS: 0.9% NaCl injection 3 mL, Intracatheter, q8h acetaminophen (Tylenol) tablet 650 mg, Oral, q6h amitriptyline (Elavil) tablet 25 mg, Oral, AT BEDTIME ertapenem (INVanz) 1,000 mg in 0.9% NaCl IV 50 mL IVPB, Intravenous, q24h exemestane (Aromasin) tablet 25 mg, Oral, QDAY gabapentin (Neurontin) capsule 300 mg, Oral, TID heparin injection 5,000 Units, Subcutaneous, q8h insulin glargine (Lantus) vial 19 Units, Subcutaneous, AT BEDTIME insulin lispro (HumaLOG;ADMelog) 100 UNIT/ML pen 0-6 Units, Subcutaneous, TID WC nystatin (Mycostatin) suspension 5 mL, Swish and Spit, 4X/day oxybutynin (Ditropan) tablet 5 mg, Oral, TID ?? rOPINIRole (Requip) tablet 5 mg, Oral, AT BEDTIME ?? CONTINUOUS MEDICATIONS: PRN MEDICATIONS: Or 0.9% NaCl injection 1-10 mL, Intracatheter, PRN bisacodyl (Dulcolax) suppository 10 mg, Rectal, QDAY PRN calcium carbonate (Tums) chew tablet 1 tablet, Oral, q4h PRN cyclobenzaprine (Flexeril) tablet 10 mg, Oral, TID PRN dextrose IV 12.5 g, Intravenous, PRN dextrose IV 25 g, Intravenous, PRN diphenhydrAMINE (Benadryl) capsule 25 mg, Oral, q6h PRN glucagon (Glucagen) injection 1 mg, Intramuscular, PRN glucose (Diabetic Use) (Dex4 Glucose) oral liquid, Oral, PRN glucose (Diabetic Use) oral gel, Oral, PRN glucose chew tablet 4 tablet, Oral, PRN HYDROmorphone (Dilaudid) injection 0.2 mg, Intravenous, q4h PRN melatonin tablet 3 mg, Oral, AT BEDTIME PRN oxyCODONE (immediate release) (Roxicodone) tablet 10 mg, Oral, q6h PRN polyethylene glycol 3350 (Miralax) packet 17 g, Oral, QDAY PRN simethicone (Mylicon) chew tablet 80 mg, Oral, 4X/day PRN sodium phosphate rectal (Fleet) enema 133 mL, Rectal, QDAY PRN ?? throat lozenge 1 lozenge, Oral, q2h PRN General: Awake, cooperative, in no acute distress. Neuro: Mental status: Alert, attentive, and oriented. Speech is clear and fluent. Cranial nerves: Grossly intact Motor: Muscle bulk and tone are normal. Strength is full bilaterally. Coordination: There are no abnormal or extraneous movements. ?? Assessment: Patient is a 66 year old, female with history including back pain s/p??T9-8 laminectomy for dorsal root column stimulator placement on 09/16/21??presenting to [facility] on??10/30/2021??with worseningpain around right lumbar battery site, reported fevers, and continued wound drainage (not actively draining). WBC 20.5, ESR 14.2, ESR 107. Imaging showed fat stranding surrounding generator battery. Pt is now s/p spinal cord stimulator battery removal with preservation of leads and other parts of the machine on 10/30/21. R pleuritic chest pain yesterday (11/05) that has since improved. Negative SOB, calf pain, cough. Normal EKG, troponins, and BLE U/S. D-dimer elevated most likely 2/2 recent surgery. Patient is on VTE prophylaxis. PR and PE very unlikely Plan: #postoperative wound infection #h/o laminectomy and placement of battery - PICC line in place - Generator will be replaced in the future (likely 6 months from now if infection is controlled) - ID recs: - Switch vanc and meropenam to ertapenam 1g QD for 4 weeks (EOD 11/30/2021). - Follow wound culture (collected 10/30 in the OR). - Follow blood culture - Follow with weekly CBC with diff,??and??CMP. ESR and CRP at week 2 (11/16). Please fax results [phone] (ID clinic: Dr. Augusto Torres). - Will follow-up with ID in 4-5 weeks - Drain care - Will take out when patient is ready for discharge - Pain management - OOB with PT/OT - Advance diet as tolerated ?? #Hypertension - Not on medication (previously on lisinopril) ?? #Diabetes: - SSI: Lantus 19U bedtime, humalog with meals ?? #Anxiety/Depression: - Continue amitriptyline ?? #PE/DVT: - SubQ heparin - Hold home xarelto ?? #LUL: - Not on home CPAP ?? 1. Current Dispo: Home health 2. Anticoagulation Status: Heparin 3. Antibiotics: ertapenam 1g QD 4. Diet: diabetic 5. PT/OT: ordered 6. Pain Control Ramon Jacobs MD 9:29 AM 11/06/21 * Marimar English RN - 11/05/2021 10:45 PM CDT Problem: Pain/Discomfort Goal: Patient exhibits reduced pain/discomfort as evidenced by pain scores Outcome: Progressing Goal: Patient uses pharmacological and non-pharmacological pain management strategies. Outcome: Progressing Goal: Patient verbalizes acceptable level of pain relief and ability to engage in desired activity. Outcome: Progressing * Kaylie Morgan RN - 11/05/2021 5:48 PM CDT Problem: Pain/Discomfort Goal: Patient exhibits [...] in the flowsheet documentation) Outcome: Progressing Problem: Skin Integrity Goal: Skin integrity is maintained or improved Outcome: Progressing Problem: Mobility Goal: Patient's mobility/activity will be maintained as optimum level for age, diagnosis and physical limitations Outcome: Progressing Goal: Continuum of care needs are further met through referral to outpatient services when appropriate. Outcome: Progressing Goal: Patient reports the ability to perform Activities of Daily Living. Outcome: Progressing Problem: Procedural Site (Incision) Care Goal: Incision remains intact with edges well approximated Outcome: Progressing Goal: Incision is free of infection. Outcome: Progressing Problem: Mobility Goal: STG - Patient will ambulate Outcome: Progressing Problem: Balance Goal: LTG - [...] Achieves restful, refreshing sleep pattern. 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, pt c/o new onset chest pain, vss, ekg obtained and labs drawn, pt denied sob or numbness, darek doppler of BLE ordered * Justen Mckeon MD - 11/05/2021 12:23 PM CDT Neurosurgery Progress Note Mohsen Marques 11/05/21 Hospital Day: 6 Subjective VSS No acute events Pain well controlled overnight Denies f/c, n/v, numbness, weakness Objective: T: 97.5 ??F (36.4 ??C) [Temp Min: 97.5 ??F (36.4 ??C) Max: 98.4 ??F (36.9 ??C)] BP: 139/85[BP Min: 119/76 Max: 150/88] MAP: 99[MAP (mmHg) Min: 84 Max: 106] HR: 92[Pulse Min: 72 Max: 92] RR: 18[Resp Min: 18 Max: 18] Sat: 100 %[SpO2 Min: 94 % Max: 100 %] ICP: [No data recorded] Input/Output: 11/04 0701 - 11/05 0700 In: 660 [P.O.:660] Out: 1610 [Urine:1600; Drains:10] PAIGE/Other Drain: 10ml Respiratory: ra Labs: Recent Labs Component Name 10/31/21 1155 WBC 18.5* HGB 12.2 HCT 38.2 PLTCOUNT 283 Recent Labs Component Name 10/31/21 1155 NA 137 POTASSIUM 4.1 CO2 28 BUN 15 CREATININE 0.66 CALCIUM 9.1 GLUCOSE 291* Recent Labs Component Name 10/31/21 1155 INR 1.3 PTT 34.1 Imaging: no new imaging Diet: DIET DIABETIC CONSIST CARB MEDICATIONS FOR CURRENT ENCOUNTER: ?? SCHEDULED MEDICATIONS: ?? 0.9% NaCl injection 3 mL, Intracatheter, q8h ?? acetaminophen (Tylenol) tablet 650 mg, Oral, q6h ?? amitriptyline (Elavil) tablet 25 mg, Oral, AT BEDTIME ?? ertapenem (INVanz) 1,000 mg in 0.9% NaCl IV 50 mL IVPB, Intravenous, q24h ?? exemestane (Aromasin) tablet 25 mg, Oral, QDAY ?? gabapentin (Neurontin) capsule 300 mg, Oral, TID ?? heparin injection 5,000 Units, Subcutaneous, q8h ?? insulin glargine (Lantus) vial 19 Units, Subcutaneous, AT BEDTIME ?? insulin lispro (HumaLOG;ADMelog) 100 UNIT/ML pen 0-6 Units, Subcutaneous, TID WC ?? nystatin (Mycostatin) suspension 5 mL, Swish and Spit, 4X/day ?? oxybutynin (Ditropan) tablet 5 mg, Oral, TID ?? rOPINIRole (Requip) tablet 5 mg, Oral, AT BEDTIME ?? CONTINUOUS MEDICATIONS: ?? PRN MEDICATIONS: ?? Or ?? 0.9% NaCl injection 1-10 mL, Intracatheter, PRN ?? bisacodyl (Dulcolax) suppository 10 mg, Rectal, QDAY PRN ?? calcium carbonate (Tums) chew tablet 1 tablet, Oral, q4h PRN ?? cyclobenzaprine (Flexeril) tablet 10 mg, Oral, TID PRN ?? dextrose IV 12.5 g, Intravenous, PRN ?? dextrose IV 25 g, Intravenous, PRN ?? diphenhydrAMINE (Benadryl) capsule 25 mg, Oral, q6h PRN ?? glucagon (Glucagen) injection 1 mg, Intramuscular, PRN ?? glucose (Diabetic Use) (Dex4 Glucose) oral liquid, Oral, PRN ?? glucose (Diabetic Use) oral gel, Oral, PRN ?? glucose chew tablet 4 tablet, Oral, PRN ?? HYDROmorphone (Dilaudid) injection 0.2 mg, Intravenous, q4h PRN ?? melatonin tablet 3 mg, Oral, AT BEDTIME PRN ?? oxyCODONE (immediate release) (Roxicodone) tablet 10 mg, Oral, q6h PRN ?? polyethylene glycol 3350 (Miralax) packet 17 g, Oral, QDAY PRN ?? simethicone (Mylicon) chew tablet 80 mg, Oral, 4X/day PRN ?? sodium phosphate rectal (Fleet) enema 133 mL, Rectal, QDAY PRN ?? throat lozenge 1 lozenge, Oral, q2h PRN General: Awake, cooperative, in no acute distress. Neuro: Mental status: Alert, attentive, and oriented. Speech is clear and fluent. Cranial nerves: Grossly intact Motor: Muscle bulk and tone are normal. Strength is full bilaterally. Coordination: There are no abnormal or extraneous movements. ?? Assessment: Patient is a 66 year old, female with history including back pain s/p??T9-8 laminectomy for dorsal root column stimulator placement on 09/16/21??presenting to [facility] on??10/30/2021??with worseningpain around right lumbar battery site, reported fevers, and continued wound drainage (not actively draining). WBC 20.5, ESR 14.2, ESR 107. Imaging showed fat stranding surrounding generator battery. Pt is now s/p spinal cord stimulator battery removal with preservation of leads and other parts of the machine on 10/30/21. Plan: #postoperative wound infection #h/o laminectomy and placement of battery - PICC line in place - Generator will be replaced in the future (likely 6 months from now if infection is controlled) - ID recs: - Switch vanc and meropenam to ertapenam 1g QD for 4 weeks (EOD 11/30/2021). - Follow wound culture (collected 10/30 in the OR). - Follow blood culture - Follow with weekly CBC with diff,??and??CMP. ESR and CRP at week 2 (11/16). Please fax results [phone] (ID clinic: Dr. Augusto Torres). - Will follow-up with ID in 4-5 weeks - Drain care - Will take out when patient is ready for discharge - Pain management - OOB with PT/OT - Advance diet as tolerated ?? #Hypertension - Not on medication (previously on lisinopril) ?? #Diabetes: - SSI: Lantus 19U bedtime, humalog with meals ?? #Anxiety/Depression: - Continue amitriptyline ?? #PE/DVT: - SubQ heparin - Hold home xarelto ?? #LUL: - Not on home CPAP ?? 1. Current Dispo: Home health 2. Anticoagulation Status: Heparin 3. Antibiotics: ertapenam 1g QD 4. Diet: diabetic 5. PT/OT: ordered 6. Pain Control Justen Mckeon MD 12:23 PM 11/05/21 * Isamar Polk, PT - 11/05/2021 9:54 AM CDT [facility] Physical Medicine and Rehabilitation Physical Therapy Progress Note Patient: Mohsen Marques Med Record Number: [id number] Date of : 1955 Age: [age] year old PPE worn by staff: mask - procedural;gloves PPE worn by patient: mask - procedural Discharge Recommendation: Patient should be able to return home when medically cleared by physicianteam. Therapy will continue to treat patient while in hospital. See current amount of assist neededbelow. Patient currently using Wheeled Walker and Straight Cane and has equipment at home. No equipment needs if d/c home. SUBJECTIVE: Subjective: I am hoping I can go home today. Lets do some walking. Pain Assessment: Pain Rating Score #: 2 Pain Location : Incisional Follow-up for pain: No follow-up for pain indicated and patient agreed to proceed with treatment PRECAUTIONS: Weight Bearing Status: (WBAT) Activity Level: Up ad landon OBJECTIVE: At start of therapy session, patient found on edge of bed General Appearance: Seated EOB. LDAs: IV's: Peripheral line and Drains Vitals Observations: Vitals monitored throughout session. Pt without any SOB, dizziness, or signs/symptoms of distress. Mental Status/Cognition: Level of Consciousness-Adult: Alert Orientation Level: Oriented X4 Cognition: Follows Commands-Consistent;Attention/concentration-normal for age;Processing-Appropriate Attention Span: Appears intact Memory: Appears intact Following Commands: Follows all commands and directions without difficulty Safety Judgement: Good awareness of safety precautions Awareness of Errors: Good awareness of errors made Problem Solving: Able to problem solve independently Mobility: A gait belt and non-slip socks were used for all out of bed activity this date. Transfers: Sit to Stand: Stand By Assist to WA. Gait: Weight Bearing Status: (WBAT) Distance Ambulated: 110 FEET Ambulation: Assistive Device: Walker-2 Wheeled Ambulation: Level of Assistance: Stand By Assist Comment: Pt ambulates this session using WW, reports she is a little sore today and needs to get warmed up. Pt demos appropriate positioning inside the walker however requires cues for relaxation at shoulders and lifting head. Pt able to tolerate increased distance of ambulation this session, however continues to demo decreased andra. Balance: Balance Scales/Tests Used: Sitting: Static/Dynamic;Standing: Static/Dynamic Sitting - Static: Good Sitting - Dynamic: Good Standing - Static: Good Standing - Dynamic: Good - Pt able to maintain balance sitting without UE support. In standing does best with WW. ACTIVITY TOLERANCE: Patient's activity tolerance: good minus TREATMENT/INTERVENTIONS: ROM, strengthening exercises, transfer training, gait training, balance activities, monitoring of vitals and cognitive stimulation Pt stands from EOB and performs ambulation using WW. She is able to turn and change directions using WW well without assist, navigates around objects. Requires increased time for ambulation due to decreased andra. Pt returns to bed at end of session, reports she has been sitting in the chair for a while already this morning. EDUCATION: While performing PT, Patient was instructed in:functional mobility training, energy conservation, safety awareness/fall precautions , home exercise program, discharge planning Presented to patient who demonstrates Good understanding of instructions given. ASSESSMENT: Patient would benefit from additional Physical Therapy sessions to achieve the following functionalgoals to enhance independence. Short Term Goals: Goal Formation With patient Patient will perform bed mobility independently Patient will transfer sit to/from stand independently Patient will transfer bed to/from chair independently Patient will ambulate 150 feet independently and appropriate AD Patient will ascend/descent 2 steps with stand by assist Halfway Goal(s): Patient to be independent with functional mobility and self-care and should be able to safely discharge to prior level of care. INFORMED CONSENT TO TREATMENT: Plan of care including recommended therapy, goals and frequency, discussed with patient who understands and agrees to proceed. Equipment Issued: gait belt Plan: Patient continues to benefit from skilled therapy services., Continue with goals as established. If patient is discharged from the facility, this note serves as a discharge summary if further physical therapy visits did not occur. Refer to filed flowsheet for further details. Following therapy session, patient left in bed, with call light within reach, with RNKaylie aware, all lines intact. * Theresa Aranda RN - 11/05/2021 9:16 AM CDT VIDHI spoke with Keyur Arguello, and teaching has been completed with pt. [facility] is Monday,11/06/21. Pending PICC placement. Ok to discharge after PICC and dose of Ertapenam today if medically ready. Team notified. Theresa Aranda RN [phone] Care Coordination Nurse Maintenance Service Technician * Marimar English RN - 11/04/2021 10:33 PM CDT Problem: Pain/Discomfort Goal: Patient exhibits reduced pain/discomfort as evidenced by pain scores Outcome: Progressing Goal: Patient uses pharmacological and non-pharmacological pain management strategies. Outcome: Progressing Goal: Patient verbalizes acceptable level of pain relief and ability to engage in desired activity. Outcome: Progressing * Lisa Neil PT - 11/04/2021 2:02 PM CDT [facility] Physical Medicine and Rehabilitation Physical Therapy Progress Note Patient: Mohsen Marques Med Record Number: [id number] Date of : 1955 Age: [age] year old PPE worn by staff: mask - procedural;gloves PPE worn by patient: mask - procedural Discharge Recommendation: Patient should be able to return home when medically cleared by physicianteam. Therapy will continue to treat patient while in hospital. See current amount of assist neededbelow. SUBJECTIVE: Subjective: Patient states that she is waiting to go for a PICC line Pain Assessment: Patient did not c/o pain this date. Follow-up for pain: No follow-up for pain indicated and patient agreed to proceed with treatment PRECAUTIONS: OBJECTIVE: At start of therapy session, patient found in bed and with no alarm General Appearance: 66 y/o female in bed in [facility] LDAs: IV's: Peripheral line Mental Status/Cognition: Orientation Level: Oriented X4 Cognition: Follows Commands-Consistent Mobility: A gait belt and non-slip socks were used for all out of bed activity this date. Bed Mobility: Supine to Sit: Stand By Assist with HOB in semi-fowlers position Transfers: Sit to Stand: Stand By Assist Stand to Sit: Stand By Assist Chair to Bed: Stand By Assist Bed to Chair: Stand By Assist Type of Transfer: Stand Pivot Transfer Toilet Transfers: Stand By Assist Transfer Device: Gait belt;Walker-2 Wheeled Gait: Distance Ambulated: (100 feet) Ambulation: Assistive Device: Walker-2 Wheeled Ambulation: Level of Assistance: Stand By Assist Balance: Sitting - Static: Good Sitting - Dynamic: Good Standing - Static: Fair + Standing - Dynamic: Fair ACTIVITY TOLERANCE: Patient's activity tolerance: fair TREATMENT/INTERVENTIONS: transfer training and gait training EDUCATION: While performing PT, Patient was instructed in:functional mobility training, safety awareness/fall precautions Presented to patient who demonstrates Good understanding of instructions given. ASSESSMENT: Patient would benefit from additional Physical Therapy sessions to achieve the following functionalgoals to enhance independence. Short Term Goals: Goal Formation?With patient Patient will perform bed mobility??independently Patient will transfer sit to/from stand??independently Patient will transfer bed to/from chair??independently Patient will ambulate??150??feet independently??and appropriate AD Patient will ascend/descent??2??steps with stand by assist ?? Continuous Improvement Consultant Goal(s): Patient to be independent with functional mobility and self-care and should be able to safely discharge to prior level of care. INFORMED CONSENT TO TREATMENT: Plan of care including recommended therapy, goals and frequency, discussed with patient who understands and agrees to proceed. Plan: Patient continues to benefit from skilled therapy services. If patient is discharged from the facility, this note serves as a discharge summary if further physical therapy visits did not occur. Refer to filed flowsheet for further details. Following therapy session, patient left in patient bedside chair, with call light within reach, with RNLina aware. * Ramon Jacobs MD - 11/04/2021 6:44 AM CDT [facility] Neurosurgery Daily Progress Note Mohsen Marques, 66 year old, female : 1955 CSN: [id number] Primary Care Physician: Justen Gale MD - Admission Date/Time: 10/30/2021 3:05 AM - Hospital Day: 5 Subjective VSS No acute events Pain better controlled overnight with oxy 10mg TID and tylenol 650 mg 4 times/day Denies f/c, n/v, numbness, weakness Vitals Temp (24hrs), Av.3 ??F (36.8 ??C), Min:97.8 ??F (36.6 ??C), Max:98.8 ??F (37.1 ??C) BP 136/74 Pulse 78 Temp 98 ??F (36.7 ??C) Resp 18 Ht 1.549 m (5' 1 ) Wt 129.3 kg (285 lb) SpO2 97% Labs Recent Labs Component Name 10/31/21 1155 10/30/21 2100 10/30/21 0533 WBC 18.5* 20.5* 20.5* HGB 12.2 12.0 12.5 HCT 38.2 37.2 39.8 PLTCOUNT 283 255 298 Recent Labs Component Name 10/31/21 1155 10/30/21 2100 10/30/21 1346 INR 1.3 1.3 1.3 Cultures Blood Cultures: final NGTA (+ blood culture reported at OSH, pending sensitivity report) Wound Cultures: final: heavy E. coli Urine Cultures: final NGTA Drain output Drain 1: (24 hours, last shift): 15 cc Physical Exam General: Awake, cooperative, in no acute distress. Neuro: Mental status: Alert, attentive, and oriented. Speech is clear and fluent. Cranial nerves: Grossly intact Motor: Muscle bulk and tone are normal. Strength is full bilaterally. Coordination: There are no abnormal or extraneous movements. Assessment/Plan Patient is a 66 year old, female with history including back pain s/p T9-8 laminectomy for dorsal root column stimulator placement on 09/16/21 presenting to [facility] on 10/30/2021 with worsening pain around right lumbar battery site, reported fevers, and continued wound drainage (not actively draining). WBC 20.5, ESR 14.2, ESR 107. Imaging showed fat stranding surrounding generator battery. Pt is now s/p spinal cord stimulator battery removal with preservation of leads and other parts of the machine on 10/30/21. #postoperative wound infection #h/o laminectomy and placement of battery - PICC line to be placed - Generator will be replaced in the future (likely 6 months from now if infection is controlled) - ID recs: - Switch vanc and meropenam to ertapenam 1g QD for 4 weeks (EOD 11/30/2021). - Follow wound culture (collected 10/30 in the OR). - Follow blood culture - Follow with weekly CBC with diff, and CMP. ESR and CRP at week 2 (11/16). Please fax results to [phone] (ID clinic: Dr. Augusto Torres). - Will follow-up with ID in 4-5 weeks - Drain care - Will take out when patient is ready for discharge - Pain management - OOB with PT/OT - Advance diet as tolerated #Hypertension - Not on medication (previously on lisinopril) #Diabetes: - SSI: Lantus 19U bedtime, humalog with meals #Anxiety/Depression: - Continue amitriptyline #PE/DVT: - SubQ heparin - Hold home xarelto #LUL: - Not on home CPAP 1. Current Dispo: Home health 2. Anticoagulation Status: Heparin 3. Antibiotics: ertapenam 1g QD 4. Diet: diabetic 5. PT/OT: ordered 6. Pain Control Ramon Jacobs MD 11/04/2021 6:44 AM * Marimar English RN - 11/03/2021 10:53 PM CDT Problem: Pain/Discomfort Goal: Patient exhibits reduced pain/discomfort as evidenced by pain scores Outcome: Progressing Goal: Patient uses pharmacological and non-pharmacological pain management strategies. Outcome: Progressing Goal: Patient verbalizes acceptable level of pain relief and ability to engage in desired activity. Outcome: Progressing * Theresa Aranda RN - 11/03/2021 3:37 PM CDT VIDHI spoke with Saundra, [facility], and teaching has been completed with pt. [facility] SOC is 11/05/21. Discharge pending PICC line and dose of Ertapenam tomorrow, 11/04/21. Theresa Aranda, RN [phone] Care Coordination Nurse Maintenance Service Technician * Wilian Navarro RN - 11/03/2021 11:08 AM CDT Pt was unable to remain flat on table and wanted off related to pain, pt returned to bed nad head elevated and returned to room per rn , bed low and locked, side rail x3 and call light activated and in bed, RN notified of pt need to abort case related to pain, * Isamar Polk PT - 11/03/2021 10:50 AM CDT [facility] Department of Physical Medicine & Rehabilitation Progress Note Patient: Mohsen Marques Med Record Number: [id number] Date of : 1955 Age: [age] year old 11/03/21 1050 Missed Visit Missed Visit Procedure Off Floor Patient off the floor (PICC line) Pt off floor for PICC line. Will attempt back as schedule allows. * Ramon Jacobs MD - 11/03/2021 9:22 AM CDT [facility] Neurosurgery Daily Progress Note Mohsen Marques, 66 year old, female : 1955 [facility]: [id number] Primary Care Physician: Justen Gale MD - Admission Date/Time: 10/30/2021 3:05 AM - Hospital Day: 4 Subjective VSS No acute events Denies f/c, n/v, intolerable pain, numbness, weakness Vitals Temp (24hrs), Av.5 ??F (36.9 ??C), Min:98.3 ??F (36.8 ??C), Max:98.8 ??F (37.1 ??C) BP 151/81 Pulse 78 Temp 98.8 ??F (37.1 ??C) Resp 24 Ht 1.549 m (5' 1 ) Wt 129.3 kg (285 lb) SpO2 95% BMI 53.85 kg/m2 Labs Recent Labs Component Name 10/31/21 1155 10/30/21 2100 10/30/21 0533 WBC 18.5* 20.5* 20.5* HGB 12.2 12.0 12.5 HCT 38.2 37.2 39.8 PLTCOUNT 283 255 298 Recent Labs Component Name 10/31/21 1155 10/30/21 2100 10/30/21 1346 INR 1.3 1.3 1.3 Cultures Blood Cultures: final NGTA (+ blood culture reported at OSH, pending sensitivity report) Wound Cultures: final: heavy E. coli Urine Cultures: final NGTA Drain output Drain 1: (24 hours, last shift): 20 Physical Exam General: Awake, cooperative, in no acute distress. Neuro: Mental status: Alert, attentive, and oriented. Speech is clear and fluent. Cranial nerves: Grossly intact Motor: Muscle bulk and tone are normal. Strength is full bilaterally. Coordination: There are no abnormal or extraneous movements. Assessment/Plan Patient is a 66 year old, female with history including back pain s/p T9-8 laminectomy for dorsal root column stimulator placement on 09/16/[address] [facility] on 10/30/2021 with worsening pain around right lumbar battery site, reported fevers, and continued wound drainage (not actively draining). WBC 20.5, ESR 14.2, ESR 107. Imaging showed fat stranding surrounding generator battery. Pt is now s/p spinal cord stimulator battery removal with preservation of leads and other parts of the machine on 10/30/21. #postoperative wound infection #h/o laminectomy and placement of battery - PICC line to be placed - Generator will be replaced in the future (likely 6 months from now if infection is controlled) - ID recs: - Switch vanc and meropenam to ertapenam 1g QD for 4 weeks (EOD 11/30/2021). - Follow wound culture (collected 10/30 in the OR). - Follow blood culture - Follow with weekly CBC with diff, and CMP. ESR and CRP at week 2 (11/16). Please fax results to [phone] (ID clinic: Dr. Augusto Torres). - Will follow-up with ID in 4-5 weeks - Drain care - Will take out when patient is pending discharge - Pain management - OOB with PT/OT - Advance diet as tolerated #Hypertension - Not on medication (previously on lisinopril) #Diabetes: - SSI: Lantus 19U bedtime, humalog with meals #Anxiety/Depression: - Continue amitriptyline #PE/DVT: - SubQ heparin - Hold home xarelto #LUL: - Not on home CPAP 1. Current Dispo: Home health 2. Anticoagulation Status: Heparin 3. Antibiotics: ertapenam 1g QD 4. Diet: diabetic 5. PT/OT: ordered 6. Pain Control Ramon Jacobs MD 11/03/2021 9:22 AM * Shasha Schaefer RN - 11/03/2021 6:21 AM CDT Planned care were completed for this patient. Was in severe pains at the beginning off the shift which was managed with PRN pain medication, rested well afterwards. VSS, was free from falls and injuries. Problem: Pain/Discomfort Goal: Patient exhibits reduced pain/discomfort [...] in the flowsheet documentation) Outcome: Progressing Problem: Skin Integrity Goal: Skin integrity is maintained or improved Outcome: Progressing Problem: Mobility Goal: Patient's mobility/activity will be maintained as optimum level for age, diagnosis and physical limitations Outcome: Progressing Goal: Continuum of care needs are further met through referral to outpatient services when appropriate. Outcome: Progressing Goal: Patient reports the ability to perform Activities of Daily Living. Outcome: Progressing Problem: Procedural Site (Incision) Care Goal: Incision remains intact with edges well approximated Outcome: Progressing Goal: Incision is free of infection. Outcome: Progressing Problem: Mobility Goal: STG - Patient will ambulate Outcome: Progressing Problem: Balance Goal: LTG - Patient will demonstrate Intervention to enhance balance for safe completion of daily activities Outcome: Progressing * Isamar Polk, PT - 11/02/2021 10:50 AM CDT [facility] Physical Medicine and Rehabilitation Physical Therapy Progress Note Patient: Mohsen Marques Med Record Number: [id number] Date of : 1955 Age: [age] year old PPE worn by staff: mask - procedural;gloves PPE worn by patient: gown - patient, clean;socks - clean Discharge Recommendation: Patient should be able to return home when medically cleared by physicianteam. Therapy will continue to treat patient while in hospital. See current amount of assist neededbelow. Patient currently using Wheeled Walker and Straight Cane and has equipment at home. No equipment needs if d/c home. SUBJECTIVE: Subjective: I would like to practice some stairs today. Pt pleasant and cooperative, agreeable totherapy session. Pain Assessment: Pain Rating Score #: 2 Pain Location : Incisional Follow-up for pain: No follow-up for pain indicated and patient agreed to proceed with treatment PRECAUTIONS: Weight Bearing Status: (WBAT) OBJECTIVE: At start of therapy session, patient found on edge of bed General Appearance: Seated EOB. LDAs: IV's: Peripheral line and Drains Vitals Observations: Vitals monitored throughout session. Pt without any SOB, dizziness, or signs/symptoms of distress. Mental Status/Cognition: Level of Consciousness-Adult: Alert Orientation Level: Oriented X4 Cognition: Follows Commands-Consistent;Attention/concentration-normal for age;Processing-Appropriate Attention Span: Appears intact Memory: Appears intact Following Commands: Follows all commands and directions without difficulty Safety Judgement: Good awareness of safety precautions Awareness of Errors: Good awareness of errors made Problem Solving: Able to problem solve independently Mobility: A gait belt and non-slip socks were used for all out of bed activity this date. Transfers: Sit to Stand: Stand By Assist to SC. Gait: Weight Bearing Status: (WBAT) Distance Ambulated: 75 FEET Ambulation: Assistive Device: Cane-Straight Ambulation: Level of Assistance: Stand By Assist Comment: Pt ambulates this session using SC in R UE. Pt requires occasional cues for sequencing butis able to turn and change directions with increased time, no assist from therapist. Continues to demo decreased andra and step length/height. Stairs: Pt performs step ups/down on step stool with R UE on railing and L hand on SC. Pt requires min A for safety/steadying assist and able to complete x6 times. Balance: Balance Scales/Tests Used: Sitting: Static/Dynamic;Standing: Static/Dynamic Sitting - Static: Good Sitting - Dynamic: Good Standing - Static: Good - Standing - Dynamic: Fair + Pt able to maintain balance sitting without UE support. In standing does best with WW. ACTIVITY TOLERANCE: Patient's activity tolerance: fair plus TREATMENT/INTERVENTIONS: ROM, strengthening exercises, transfer training, gait training, balance activities, monitoring of vitals and cognitive stimulation Pt stands from EOB and performs ambulation in room using WW. She is able to turn and change directions using WW well without assist, navigates around objects. Pt performs standing marches and mini-squats with WW 10x each. Transfers to recliner chair. Overall increased time needed for tasks but completes without physical assist from therapist. EDUCATION: While performing PT, Patient was instructed in:functional mobility training, energy conservation, safety awareness/fall precautions , home exercise program, discharge planning Presented to patient who demonstrates Good understanding of instructions given. ASSESSMENT: Patient would benefit from additional Physical Therapy sessions to achieve the following functionalgoals to enhance independence. Short Term Goals: Goal Formation With patient Patient will perform bed mobility independently Patient will transfer sit to/from stand independently Patient will transfer bed to/from chair independently Patient will ambulate 150 feet independently and appropriate AD Patient will ascend/descent 2 steps with stand by assist Halfway Goal(s): Patient to be independent with functional mobility and self-care and should be able to safely discharge to prior level of care. INFORMED CONSENT TO TREATMENT: Plan of care including recommended therapy, goals and frequency, discussed with patient who understands and agrees to proceed. Equipment Issued: gait belt Plan: Patient continues to benefit from skilled therapy services., Continue with goals as established. If patient is discharged from the facility, this note serves as a discharge summary if further physical therapy visits did not occur. Refer to filed flowsheet for further details. Following therapy session, patient left in patient bedside chair, with call light within reach, with RN, Korin aware, all lines intact. * Ramon Jacobs MD - 11/02/2021 9:29 AM CDT [facility] Neurosurgery Daily Progress Note Mohsen Marques, 66 year old, female : 1955 CSN: [id number] Primary Care Physician: Justen Gale MD - Admission Date/Time: 10/30/2021 3:05 AM - Hospital Day: 3 Subjective Post-op day 3 VSS No acute events Denies f/c, n/v, intolerable pain, numbness, weakness Vitals Temp (24hrs), Av.2 ??F (36.8 ??C), Min:97.7 ??F (36.5 ??C), Max:98.6 ??F (37 ??C) BP 150/78 Pulse 65 Temp 98.5 ??F (36.9 ??C) Resp 18 Ht 1.549 m (5' 1 ) Wt 129.3 kg (285 lb) SpO2 99% BMI 53.85 kg/m2 Labs Recent Labs Component Name 10/31/21115410/30/21209910/30/21 0533 WBC 18.5* 20.5* 20.5* HGB 12.2 12.0 12.5 HCT 38.2 37.2 39.8 PLTCOUNT 283 255 298 Recent Labs Component Name 10/31/21 11510/30/21209910/30/21 1346 INR 1.3 1.3 1.3 Cultures Blood Cultures: final NGTA (+ blood culture reported at OSH, pending sensitivity report) Wound Cultures: prelim: heavy E. coli Urine Cultures: final NGTA Drain output Drain 1: (24 hours, last shift): 0 Physical Exam General: Awake, cooperative, in no acute distress. Neuro: Mental status: Alert, attentive, and oriented. Speech is clear and fluent. Cranial nerves: Grossly intact Motor: Muscle bulk and tone are normal. Strength is full bilaterally. 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 Assessment/Plan Patient is a 66 year old, female with history including back pain s/p T9-8 laminectomy for dorsal root column stimulator placement on 09/16/[address] [facility] on 10/30/2021 with worsening pain around right lumbar battery site, reported fevers, and continued wound drainage (not actively draining). WBC 20.5, ESR 14.2, ESR 107. Imaging showed fat stranding surrounding generator battery. Pt is now s/p spinal cord stimulator battery removal with preservation of leads and other parts of the machine on 10/30/21. #postoperative wound infection #h/o laminectomy and placement of battery - Pending blood and wound cx and sensitivities - Generator will be replaced in the future (likely 6 months from now if infection is controlled) - ID recs: - Switch vanc and meropenam to ertapenam 1g QD for 4 weeks. - Follow wound culture (collected 10/30 in the OR). - Follow blood culture - Follow with weekly CBC with diff, and CMP. Please fax results to [phone] (ID clinic: Dr. Augusto Torres). - Will follow-up with ID in 4-5 weeks - Drain care - Pain management - OOB with PT/OT - Advance diet as tolerated #Hypertension - Not on medication (previously on lisinopril) #Diabetes: - SSI: Lantus 19U bedtime, humalog with meals #Anxiety/Depression: - Continue amitriptyline #PE/DVT: - SubQ heparin - Hold home xarelto #LUL: - Not on home CPAP 1. Current Dispo: 2. Anticoagulation Status: Heparin 3. Antibiotics: ertapenam 1g QD 4. Diet: diabetic 5. PT/OT: ordered 6. Pain Control Ramon Jacobs MD 11/02/2021 9:29 AM * Jazmyne Torres MD - 11/02/2021 9:00 AM CDT [facility] Infectious Diseases Progress Note Admitted on: 10/30/2021 3:05 AM Hospital stay: Day 3 Room: 108/01 Attending: Maxi Gregg MD Reason for ID f/u: Infected battery site of spinal stimulation system ?? Brief History and Hospital Course: Mohsen Marques is a 66 year old?? female??with PMH of T2DM, HTN, CHF, PE/DVT on Xarelto, breast cancer s/p b/l mastectomy, chronic back pain s/p??T8-T9 laminectomy for placement of dorsalcolumn stimulation system and placement of the battery in the??right??lower lumbar region (09/16/2021), who??presented to [facility] on??10/30/2021??as transfer from OSH ([facility]) for further management of infected battery site of spinal stimulation system. ?? The patient received a dose of IV vancomycin pranay-op of surgery of placement of spinal stimulation system on 09/16/2021. She then developed rash to her back and ulcers in mouth around 09/19 and had ED visits x 2 for this, supportive care was given. A couple of weeks later she noted wound drainage in the battery site with increase in pain. She presented to [facility] ED again on 10/06, note purulent gurjit inage from incision , labs notable for mild leukocytosis WBC of 11.5, BCx was sent (later no growth), then was given clindamycin for 14 days (she reported she didn't take it). The course was complicated by UTI and Strep throat , for which she received a few fays of Bactrim, then nitrofurantoin butdeveloped rash again. The wound at battery site was never healed with intermittent drainage, with as sociated pain, for which she had multiple ED visits. On 10/29, she spiked fever 100.5. She went to [facility] ED. Labs notable for WBC 22. BCx was sent. CT A/P w contrast showed increase in fat stranding surrounding the battery pack, mild fat stranding tracks along the spinal stimulator lead, as well as a??5.9 x 2.5 x 3.9 cm fluid collection at the site of the thoracic laminectomies surrounding the distal aspect of the spinal stimulator leads with equivocal rim enhancement. IV vancomycin and aztreonamwere given. She was then transferred to [facility] for neurosurgery evaluation and management. ?? Upon arrival to [facility], Tmax 99.1, VSS, leukocytosis WBC of 20.5 (neut 93%). BCx was sent. UA WBC 6-10, UCx no growth. Started on IV vancomycin and meropenem. On 10/30, she was taken to the OR with neurosurgery for removal of battery in the??right??lower lumbar region??and irrigation of the wound, purulent collection noted, cultures grew E.coli on 10/30 SUBJECTIVE & INTERVAL HISTORY: Patient seen and examined. No fever Current Abx: vancomycin,meropenem Inpatient Medications ??? 0.9% NaCl 3 mL Intracatheter q8h ??? amitriptyline 25 mg Oral AT BEDTIME ??? exemestane 25 mg Oral QDAY ??? gabapentin 300 mg Oral TID ??? heparin 5,000 Units Subcutaneous q8h ??? insulin glargine 0.15 Units/kg Subcutaneous AT BEDTIME ??? insulin aspart 0-6 Units Subcutaneous TID WC ??? meropenem 1,000 mg Intravenous q8h ??? oxybutynin 5 mg Oral TID ??? rOPINIRole 5 mg Oral AT BEDTIME ??? vancomycin 1,750 mg Intravenous q12h ??? vancomycin (VANCOCIN) IV dose per pharmacy Does not apply DIRECTED 0.9% NaCl IV, , Last Rate: 75 mL/hr at 11/02/21 0641 PRN Medications ??? SALINE LOCK, INSERT AND MAINTAIN AND 0.9% NaCl AND 0.9% NaCl ??? acetaminophen ??? cyclobenzaprine ??? dextrose IV for hypoglycemia OR dextrose IV for hypoglycemia ??? glucagon ??? glucose (Diabetic Use) ??? glucose (Diabetic Use) gel ??? glucose chew tab ??? HYDROmorphone ??? oxyCODONE-acetaminophen ??? oxyCODONE-acetaminophen OBJECTIVE: Vital Signs: BP 150/78 Pulse 65 Temp 98.5 ??F (36.9 ??C) Resp 18 Ht 5' 1 (1.549 m) Wt 285 lb (129.3 kg) SpO2 99% BMI 53.85 kg/m2 Temp (24hrs), Av.2 ??F (36.8 ??C), Min:97.7 ??F (36.5 ??C), Max:98.6 ??F (37 ??C) I/O: Intake/Output Summary (Last 24 hours) at 11/02/2021 09 Last data filed at 11/02/2021 0642 Gross per 24 hour Intake 3058.71 ml Output 980 ml Net 2078.71 ml Physical Exam: General: Alert, cooperative, no distress, obese Head: Normocephalic, atraumatic Eyes: Conjunctiva pale, corneas clear, anicteric sclerae Nose: No deformity Mouth and Throat: Oropharynx clear, no thrush Neck: Supple, symmetrical, no JVD Chest wall: No tenderness or deformity Lungs: Clear to auscultation bilaterally Heart: RRR, S1, S2 normal, no murmur, click, rub or gallop Abdomen: Soft, non-distended, non-tender, +BS Back: Symmetric, no curvature. ROM normal. No CVA tenderness Extremities: Atraumatic, no cyanosis or edema Skin: wound in lower back with drain. Neurologic: Alert and oriented x 3, grossly intact Psychiatry: Appropriate mood/affect Lines: LABS CBC: Recent Labs Component Name 10/31/21115410/30/21209910/30/2153204/20/17 0404 01/27/12 1157 WBC 18.5* 20.5* 20.5* - 8.8 RBC 4.19 4.07 4.28 - 4.71 HGB 12.2 12.0 12.5 - 13.2 HCT 38.2 37.2 39.8 - 41.6 MCV 91.2 91.4 93.0 - 88.3 PLT - - - - 330 - = values in this interval not displayed. BMP: Recent Labs Component Name 10/31/21 1155 10/30/21209910/30/2133 04/20/17 0404 01/27/12 1157 NA 137 137 135* - 139 K - - - - 3.7 CL 103 102 99 - 106 CO2 28 25 27 - 24 BUN 15 13 14 - 17 CREATININE 0.66 0.68 0.63 - 0.6 GLU - - - - 143* ALB 2.6* 2.7* 2.8* - 3.2* PROT 7.4 7.2 7.2 - 7.4 7.8 - = values in this interval not displayed. estimated creatinine clearance is 107.9 mL/min (by C-G formula based on SCr of 0.66 mg/dL). Recent Labs Component Name 10/31/21 1155 10/30/21 2100 10/30/21 0533 ALT 14 14 14 AST 8 9 11 ALKPHOS 90 74 77 TBILI 0.5 1.1 1.3* MICROBIOLOGY: Blood culture 10/30 NGTD 10/26/2021: x 2 No growth 10/06/2021: x 2 No growth day 5 OR 10/30 Culture Heavy Escherichia coli??Critical? Gram Stain ??Critical?? Heavy Polymorphonuclear cells Light Gram-negative bacilli Resulting Agency: [facility] Susceptibility Escherichia coli TERRANCE Amikacin <=2 ug/mL Susceptible Ampicillin 8 ug/mL Susceptible Ampicillin-sulbactam 4 ug/mL Susceptible Cefazolin <=4 ug/mL See Comment* Cefepime <=1 ug/mL Susceptible Ceftriaxone <=1 ug/mL Susceptible Ciprofloxacin <=0.25 ug/mL Susceptible Extended-Spectrum Beta-Lactamase NEG ug/mL Neg Gentamicin <=1 ug/mL Susceptible Meropenem <=0.25 ug/mL Susceptible Piperacillin-tazobactam <=4 ug/mL Susceptible Tobramycin <=1 ug/mL Susceptible Trimethoprim-sulfamethoxazole >=320 ug/mL Resistant HISTOPATHOLOGY: None at this admission IMAGING & PROCEDURE: Pertinent images independently reviewed; report in chart. IMAGING & PROCEDURE: CT ABDOMEN PELVIS WO CONTRAST (10/26/2021): OSH 1. Postoperative changes in the thoracic spine at approximately T8-9 level with spinal stimulator leads entering the spinal canal at approximately T7-8 level with slight rostral extension. 2. ??Transitional lumbosacral junction with presumed??partial sacralization of L5 and hypoplastic L5/S1 disc. 3. ??Advanced sacroiliitis. Acrg-js-paxkzkbl pubic osteitis.??Mild spondylosis in the lumbar and inthe included lower thoracic spine. 4. ??Moderate stool in the colon. Colonic diverticulosis without diverticulitis. 5. ??Postoperative changes of hernia repair in the anterior periumbilical region and anterior pelvic wall. 6. ??Several small noncalcified pulmonary nodules in the inferior lingula and left lower lobe are stable since 03/14/2019, likely postinfectious/postinflammatory. ??No further routine follow-up imaging is recommended. ?? CT ABDOMEN PELVIS W CONTRAST (10/29/2021): OSH Increased fat stranding surrounding the generator pack in the subcutaneous right lower back/buttocks extending to the skin surface with skin thickening, suspicious for inflammation or cellulitis.??Mild fat stranding tracks along the spinal stimulator lead.??5.9 x 2.5 x 3.9 cm fluid collection at the site of the thoracic laminectomies surrounding the distal aspect of the spinal stimulator leads with equivocal rim enhancement. This fluid collection could be sterile/postoperative or infected. ??Recommend correlation with surgical history. ?? XR CHEST 1VW PORTABLE (10/30/2021): There is underpenetration of the x-ray beams.?? Leads of an electronic device superimposes the thoracic spine. Retrocardiac opacity pulmonary vascular congestion could represent pulmonary mass or congestion with a component of atelectasis and/or airspace disease in the lingula. The cardiac silhouette is obscured. The mediastinal silhouette is mildly enlarged. The visible bony thorax is intact. ASSESSMENT & RECOMMENDATIONS: Patient is a 66 year old, female with history including back pain s/p??T9-8 laminectomy for dorsal root column stimulator placement on 09/16/21??presenting to [facility] on??10/30/2021??with worseningpain and was found to have spinal stimulator infection s/p generator removal on 10/30 and OR culture grew E.coli. As d/w neurosurgery, no concern of other parts of machine/leads infection but only generator which was removed. There is a concern that if the leads will be removed, then might cause some fibrosis inthe future. With retained materials and risk of possible infection, will recommend treating with IV antibiotic.I initially planned to deescalate her to CTX but she has anaphylaxis and unfortunately urticaria toquinolones for suppression plan. If no need for FUNDR[employer]ISING [employer]IST penetration, can switch meropenem to ertapenem which is more convenient once a day regimen. Plan for 2 weeks and then reevaluate , with the high risk of remnant infection due to retained material and future plan of re-implant, plan to probably try 4 weeks of treatment. Risk and benefit wereextensively discussed with patient and neurosurgery. Need weekly CBC,CMP faxed to me, ESR,CRP at week 2 F/U with me at ID clinic in 4-5 weeks I will sign off. Thank you for allowing us to participate in the care of this patient. Primary team: Neurosurgery >35 minutes spent on the care of this patient. > 50% was spent in counseling and coordinationof care that included the patient and the primay team. Jazmyne Torres MD MPH Infectious Diseases (Team 2) * Summer Howe RN - 11/02/2021 12:09 AM CDT Problem: Pain/Discomfort Goal: Patient exhibits [...] in the flowsheet documentation) Outcome: Progressing Problem: Skin Integrity Goal: Skin integrity is maintained or improved Outcome: Progressing Problem: Mobility Goal: Patient's mobility/activity will be maintained as optimum level for age, diagnosis and physical limitations Outcome: Progressing * Isamar Arriaza OT - 11/01/2021 11:54 AM CDT [facility] Department of Physical Medicine & Rehabilitation Progress Note Patient: Mohsen Marques Med Record Number: [id number] Date of : 1955 Age: [age] year old New OT orders received & chart reviewed. Per OT evaluation & discharge on 10/31, was independent without skilled OT needs. Discussed with PT and RN and patient continues to be SBA/independent without OT needs. Plan: DC from OT caseload. * Isamar Polk, PT - 11/01/2021 9:34 AM CDT [facility] Physical Medicine and Rehabilitation Physical Therapy Progress Note Patient: Mohsen Marques Med Record Number: [id number] Date of : 1955 Age: [age] year old PPE worn by staff: mask - procedural;gloves Discharge Recommendation: Patient should be able to return home when medically cleared by physicianteam. Therapy will continue to treat patient while in hospital. See current amount of assist neededbelow. Patient currently using Wheeled Walker and has equipment at home. No equipment needs if d/c home. SUBJECTIVE: Subjective: I would like to try some walking today. Pt pleasant and cooperative, agreeable to therapy session. Pain Assessment: Pain Rating Score #: 3 Pain Location : Incisional Follow-up for pain: No follow-up for pain indicated and patient agreed to proceed with treatment PRECAUTIONS: Weight Bearing Status: (WBAT) OBJECTIVE: At start of therapy session, patient found on edge of bed General Appearance: Seated EOB, reports just used commode. LDAs: IV's: Peripheral line and Drains Vitals: (*Assess the 3 levels of oxygen saturations both for room air and 02 unless rest on room air is 88% or less). Rest BP: 162/94 HR: 67 Sp02 Sp02 100% Room Air L O2 RA Ex/Gait/Activity Without 02 BP: HR: Sp02 Room Air Ex/Gait/Activity With 02 BP: HR: Sp02 L O2 Post Activity BP: HR: Sp02 Sp02 L O2 Room Air Observations: Vitals monitored throughout session. Pt without any SOB, dizziness, or signs/symptomsof distress. Mental Status/Cognition: Orientation Level: Oriented X4 Cognition: Follows Commands-Consistent;Attention/concentration-normal for age;Processing-Appropriate;Judgement-appropriate;Safety awareness-appropriate Attention Span: Appears intact Memory: Appears intact Following Commands: Follows all commands and directions without difficulty Safety Judgement: Good awareness of safety precautions Awareness of Errors: Good awareness of errors made Problem Solving: Able to problem solve independently Mobility: A gait belt and non-slip socks were used for all out of bed activity this date. Transfers: Sit to Stand: Stand By Assist to WW, one cue needed for UE placement. Gait: Weight Bearing Status: (WBAT) Distance Ambulated: 50 FEET Ambulation: Assistive Device: Walker-2 Wheeled Ambulation: Level of Assistance: Stand By Assist Comments: Pt demos decreased andra with occasional cues needed for proximity to walker. Able to navigate around objects with increased time, no assistance. Balance: Balance Scales/Tests Used: Sitting: Static/Dynamic;Standing: Static/Dynamic Sitting - Static: Good Sitting - Dynamic: Good - Standing - Static: Good - Standing - Dynamic: Fair + Pt able to maintain balance sitting without UE support. In standing does best with WW. ACTIVITY TOLERANCE: Patient's activity tolerance: fair plus TREATMENT/INTERVENTIONS: ROM, strengthening exercises, transfer training, gait training, balance activities, monitoring of vitals and cognitive stimulation Pt stands from EOB and performs ambulation in room using WW. She is able to turn and change directions using WW well without assist, navigates around objects. Pt performs standing marches and mini-squats with WW 10x each. Transfers to recliner chair. Overall increased time needed for tasks but completes without physical assist from therapist. EDUCATION: While performing PT, Patient was instructed in:functional mobility training, energy conservation, safety awareness/fall precautions , home exercise program, discharge planning Presented to patient who demonstrates Good understanding of instructions given. ASSESSMENT: Patient would benefit from additional Physical Therapy sessions to achieve the following functionalgoals to enhance independence. Short Term Goals: Goal Formation With patient Patient will perform bed mobility independently Patient will transfer sit to/from stand independently Patient will transfer bed to/from chair independently Patient will ambulate 150 feet independently and appropriate AD Patient will ascend/descent 2 steps with stand by assist Continuous Improvement Consultant Goal(s): Patient to be independent with functional mobility and self-care and should be able to safely discharge to prior level of care. INFORMED CONSENT TO TREATMENT: Plan of care including recommended therapy, goals and frequency, discussed with patient who understands and agrees to proceed. Equipment Issued: gait belt Plan: Patient continues to benefit from skilled therapy services., Continue with goals as established. If patient is discharged from the facility, this note serves as a discharge summary if further physical therapy visits did not occur. Refer to filed flowsheet for further details. Following therapy session, patient left in patient bedside chair, with call light within reach, with RNKorin aware, all lines intact. * Theresa Aranda RN - 11/01/2021 9:05 AM CDT Case Management Initial Assessment Case Management screen completed & Welcome Letter given. Anticipated level of care at discharge: Home Health - IV only Discharge Plans: Discharge needs dependent on response to clinical treatment and therapy recommendations. CM will continue to follow. Anticipate home with IV ABX. [facility], notified. Email sent to [facility]. Prior Level of Functioning: Pt's daughter is her caregiver and helps with ADLs Lives with: Daughter Basic Needs Assessment (BNA) Score: 13 Readmission: no Met with patient Discharge Goals and Plans: Verify Family Support (name and phone): Extended Emergency Contact Information Primary Emergency Contact: Jimmie Marques Address: [address] [address] Relation: Spouse Secondary Emergency Contact: Yunior Velez Mobile Relation: Daughter Patient or business center representative requests care coordination reach out to family or caregiver listed above regarding discharge planning and at time of discharge? Yes Anticipated Discharge Date: 11/03/21 Patient/Family provided with list of resources? Unknown Preferred Provider / High Quality Network List given?: Unknown Reason for provider choice: Unknown Transportation at Discharge: daughter Transportation to MD appointments: daughter Equipment at Home: Equipment At Home: Chair-Shower;Cane-Straight;Walker-2 Wheeled;Walker-4 Wheeled with Seat;Grab Bars;CPAP Additional equipment needed at home but does not have: If no PCP, action taken: Established Pharmacy benefit: Yes Medication affordability concerns: No Hunger Screening: Within the past 12 months, you worried that your food would run out before you got the money to buymore.: Never true Within the past 12 months, the food you bought just didn't last and you didn't have money to get more.: Never true Food Bank Resources Provided: Not offered to the patient Crm Coordinator Referral: No If patient requires HHC at discharge, he/she requests: Will continue to follow. For any questions or needs please contact: Maintenance Service Technician Name/Phone number: Theresa Aranda RN [phone] * Ramon Jacobs MD - 11/01/2021 8:27 AM CDT [facility] Neurosurgery Daily Progress Note Mohsen Marques, 66 year old, female : 1955 CSN: [id number] Primary Care Physician: Justen Gale MD - Admission Date/Time: 10/30/2021 3:05 AM - Hospital Day: 2 Subjective Post-op day 2 VSS No acute events Denies f/c, n/v, intolerable pain, numbness, weakness Vitals Temp (24hrs), Av ??F (36.7 ??C), Min:97.3 ??F (36.3 ??C), Max:98.5 ??F (36.9 ??C) BP 128/68 Pulse 74 Temp 97.8 ??F (36.6 ??C) (Oral) Resp 18 Ht 1.549 m (5' 1 ) Wt 129.3 kg (285 lb) SpO2 100% BMI 53.85 kg/m2 Labs Recent Labs Component Name 10/31/21 1155 10/30/21209910/30/21 0533 WBC 18.5* 20.5* 20.5* HGB 12.2 12.0 12.5 HCT 38.2 37.2 39.8 PLTCOUNT 283 255 298 Recent Labs Component Name 10/31/21 1155 10/30/21209910/30/21 1346 INR 1.3 1.3 1.3 Cultures Blood Cultures: final NGTA (+ blood culture reported at OSH, pending sensitivity report) Wound Cultures: prelim: light G (-) Urine Cultures: final NGTA Drain output Drain 1: (24 hours, last shift): 30 Physical Exam General: Awake, cooperative, in no acute distress. Neuro: Mental status: Alert, attentive, and oriented. Speech is clear and fluent. Cranial nerves: Grossly intact Motor: Muscle bulk and tone are normal. Strength is full bilaterally. 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 Assessment/Plan Patient is a 66 year old, female with history including back pain s/p T9-8 laminectomy for dorsal root column stimulator placement on 09/16/[address] [facility] on 10/30/2021 with worsening pain around right lumbar battery site, reported fevers, and continued wound drainage (not actively draining). WBC 20.5, ESR 14.2, ESR 107. Imaging showed fat stranding surrounding generator battery. Pt is now s/p spinal cord stimulator battery removal with preservation of leads on 10/30/21. #postoperative wound infection #h/o laminectomy and placement of battery - Pending blood and wound cx and sensitivities - ID recs: - Continue IV vancomycin (goal trough 15-20) and meropenem 1 g IV q8h - Follow wound culture (collected 10/30 in the OR). - Follow blood culture - Will discuss with Dr. Gregg for plan of removal of the device in entirety. - Follow CBC with diff, and CMP - Drain care - Keep for today - Pain management - OOB with PT/OT - Advance diet as tolerated #Hypertension - Not on medication (previously on lisinopril) #Diabetes: - SSI #Anxiety/Depression: - Continue amitriptyline #PE/DVT: - SubQ heparin - Hold home xarelto #LUL: - Not on home CPAP 1. Current Dispo: 2. Anticoagulation Status: Heparin 3. Antibiotics: vanc and meropenem 4. Diet: diabetic 5. PT/OT: ordered 6. Pain Control Ramon Jacobs MD 11/01/2021 8:27 AM * Summer Howe RN - 11/01/2021 1:00 AM CDT Problem: Pain/Discomfort Goal: Patient exhibits [...] in the flowsheet documentation) Outcome: Progressing Problem: Skin Integrity Goal: Skin integrity is maintained or improved Outcome: Progressing Problem: Mobility Goal: Patient's mobility/activity will be maintained as optimum level for age, diagnosis and physical limitations Outcome: Progressing Problem: Procedural Site (Incision) Care Goal: Incision remains intact with edges well approximated Outcome: Progressing * Rosalinda Zaidi, [facility] - 10/31/2021 11:04 PM CDT Vancomycin Per Pharmacy - Follow-Up Note Subjective Mohsen Marques is a 66 year old female receiving vancomycin dosed per pharmacy. Indication for anti-infective therapy: documented infection Site of anti-infective therapy: Wound. Goal trough 15-20 mcg/mL. Objective Day of treatment: 3 Current dosing regimen: 1500 mg, q 12 h. Weight: 129.3 kg (285 lb) Estimated Creatinine Clearance: 107.9 mL/min (by C-G formula based on SCr of 0.66 mg/dL). Ht Readings from Last 1 Encounters: 10/30/21 5' 1 (1.549 m) Recent Labs Component Name 10/31/21 2153 10/31/21 1155 10/30/21 2100 10/30/21 0533 CREATININE - 0.66 0.68 0.63 WBC - 18.5* 20.5* 20.5* VANCTROUGH 13.6 - - - Vancomycin Administrations from MAR (last 72 hours) Date/Time Action Medication Dose Rate 10/31/21 1016 $ New Bag vancomycin (Vancocin) 1,500 mg in 500 mL NaCl IVPB 1,500 mg 333.33 mL/hr 10/30/21 2224 $ New Bag vancomycin (Vancocin) 1,500 mg in 500 mL NaCl IVPB 1,500 mg 333.33 mL/hr 10/30/21 1640 $ Given vancomycin (Vancocin) injection 1,000 mg 10/30/21 1132 $ New Bag vancomycin (Vancocin) 1,500 mg in 500 mL NaCl IVPB 1,500 mg 333.33 mL/hr Assessment Target trough:15-20 mcg/mL The vancomycin serum level reported above was drawn 11.7 hours after the previous dose was administered. Using pharmacokinetic calculations, the extrapolated true trough is approximately 13.2. mcg/mL Patient's trough level is below the therapeutic range on the current regimen. Ke = 0.0816 hr-1 t1/2 = 8.5 hrs Vd = 73 L S.Cr is stable at this time. Plan Dosing: Will adjust dose to 1750 mg q12hr. This regimen is predicted to provide a trough = 15.6 mcg/mL. Monitoring: Will obtain a vancomycin trough level prior to the 4th dose on 11/02/21 at 1100 and adjust regimen if appropriate. Will continue to monitor patient's renal function. Please contact the [facility] pharmacy department ([phone]) with any questions. Rosalinda Zaidi RPH 10/31/2021 11:02 PM Resources: Vancomycin Protocol * Riri Daugherty RN - 10/31/2021 3:41 PM CDT NURIS gutierrez BACK SIZER unsuccessful. * Judi Alcantara OT - 10/31/2021 10:43 AM CDT [facility] Physical Medicine and Rehabilitation Occupational Therapy Initial Evaluation/Discharge Note Patient: Mohsen Marques Med Record Number: [id number] Date of : 1955 Age: [age] year old PPE worn by staff: gloves;mask - procedural Discharge Recommendation: Patient should be able to return home when medically cleared by physicianteam. Occupational Therapy will continue to treat patient while in hospital due to patient present at baseline for ADLs; Pt will continue to see for balance and mobility. See current amount of assistneeded below. In addition to the 1:1 evaluation of the patient, additional eval time was spent completing the chart review prior to the assessment, completing the multidisciplinary plan of care and education plan post evaluation and communicating results of the eval to other treatment team members. Nurse and PT contacted regarding patient status and/or discharge plan. Physician Orders: Evaluation and Treat Activity Level: up ad landon PRECAUTIONS: Falls, safety; no applicable medical/surgical/WB precautions as of 10/31/2021 DIAGNOSIS: Patient Active Problem List: Chronic back pain Anxiety and depression Chronic anticoagulation CVA (cerebral vascular accident) Essential hypertension Neuropathy LUL (obstructive sleep apnea) Type 2 diabetes mellitus without complication S/P insertion of spinal cord stimulator Preoperative examination Acute post-operative pain Past Medical History: Diagnosis Date ??? Breast cancer ??? Chest pain ??? DVT (deep venous thrombosis) ??? GERD (gastroesophageal reflux disease) ??? LUL (obstructive sleep apnea) w cpap ??? Other pulmonary embolism without acute cor pulmonale ??? rls ??? Type 2 diabetes mellitus without complications SUBJECTIVE: Subjective: Pt agreeable to OT evaluation. My daughter works from home so she is always available to help me ; Pt pleasant and agreeable throughout. PATIENT GOALS: Patient's Primary Concern: decrease pain Home Situation: Type of Residence: Private Residence Lives with:: Daughter (Daughter is caregiver) Steps to Enter: 2 Ramp: No Home Structure: One Story;Basement (no needs in basement) Primary Bedroom: First Floor Primary Bathroom: First Floor Bathroom : Tub/Shower Combo Equipment At Home: Chair-Shower;Cane-Straight;Walker-2 Wheeled;Walker-4 Wheeled with Seat;Grab Bars;CPAP Prior Level of Functioning: Mobility: Ambulate-In Home ;With Assistive Device Fallen Within 6 Mos: No Have Help at Home?: Yes, there is help at home now Who assists you at home?: Friends/Family;Laboratory Tech (Daughter is caregiver/choreworker) How often is assistance provided?: 24/ Oxygen at Home: CPAP at night Vision: Corrected with glasses Hearing Exceptions: No impairment Who manages medications?: Daughter assists Pain Assessment: Pain Rating Score #: 8 Pain Location : Back Pain Orientation: Lower Follow-up for pain: Yes, informed nurse/physician about pain issue and patient agreed to proceed with treatment OBJECTIVE: At start of therapy session, patient found in bed and with bed alarm on General Appearance: Female pt resting in bed with CPAP donned; NAD LDA: IV's: Peripheral line and Drains Edema: No edema noted in BUE Vitals: (*Assess the 3 levels of oxygen saturations both for room air and 02 unless rest on room air is 88% or less). Rest BP: 167/92 HR: 84 Sp02 98% Room Air Post Activity BP: 138/81 HR: 88 Sp02 99% Room Air Observations: Patient has no complaints of or sign/symptoms of distress (dyspnea, light headedness,dizziness, head ache/pain) with activity. Patient on room air throughout session. Mental Status/Cognition: Level of Consciousness-Adult: Alert Orientation Level: Oriented X4 Attention Span: Appears intact Memory: Appears intact [...] RUE: WFL LUE: WFL UE Sensation RUE: intact LUE: intact Perception: Initiation: Appears intact Motor Planning: Appears intact Visual/Motor Tracking: Able to track stimulus in all quads w/o difficulty Mobility: A gait belt and non-slip socks were used for all out of bed activity this date. Bed Mobility: Rolling: Stand By Assist Supine to Sit: Minimal Assistance with HOB flat Transfers: Sit to Stand: Minimal Assistance Stand to Sit: Stand By Assist Toilet Transfers: Stand By Assist with use of bilateral grab bars Transfer Device: (P) Gait belt;Walker-2 Wheeled Functional Ambulation: Functional mobility of ambulation to sink/bathroom with SBA-min assist using ww. Balance: Balance Scales/Tests Used: Sitting: Static/Dynamic;Standing: Static/Dynamic Sitting - Static: Fair + Sitting - Dynamic: Fair Standing - Static: Fair + Standing - Dynamic: Fair Activities of Daily Living Feeding: Complete [place] (to drink water from cup; hand to mouth intact in BUE) Oral Facial Hygiene: Activity Does Not Occur Bathing: Stand By Assist (to complete hand hygiene at sink) Upper Body Dressing: Stand By Assist (to manage gown during toileting) Lower Body Dressing: Maximal Assistance (pt requires assist for LB dressing at baseline) Toileting: Stand By Assist;Complete [place] (SBA for toilet transfer with bilateral grab bars;Independent for toilet hygiene seated on toilet) ACTIVITY TOLERANCE: Patient's activity tolerance: fair plus TREATMENT / EDUCATION / INTERVENTIONS: While performing OT, Patient was instructed in:functional mobility training, safety awareness/fall precautions , use of [...] IP Occupational Therapy indicated at this time. Continuous Improvement Consultant Goal(s): Patient to be independent with functional [...] on, with call light within reach, with RN, Damon barba. * Farzaneh Aranda PT - 10/31/2021 10:33 AM CDT [facility] Physical Medicine and Rehabilitation Physical Therapy Initial Evaluation Note Patient: Mohsen Marques Med Record Number: [id number] Date of : 1955 Age: [age] year old PPE worn by staff: gloves;mask - procedural PPE worn by patient: gown - patient, clean;socks - clean Tech: co-eval with OT Discharge Recommendation: Patient should be able to return home when medically cleared by physicianteam. Therapy will continue to treat patient while in hospital. See current amount of assist neededbelow. In addition to the 1:1 evaluation of [...] and Treat PRECAUTIONS: Weight Bearing Status: (WBAT) DIAGNOSIS: Patient Active Problem List: Chronic back pain Anxiety and depression Chronic anticoagulation CVA (cerebral vascular accident) Essential hypertension Neuropathy LUL (obstructive sleep apnea) Type 2 diabetes mellitus without complication S/P insertion of spinal cord stimulator Preoperative examination Acute post-operative pain Past Medical History: Diagnosis Date ??? Breast cancer ??? Chest pain ??? DVT (deep venous thrombosis) ??? GERD (gastroesophageal reflux disease) ??? LUL (obstructive sleep apnea) w cpap ??? Other pulmonary embolism without acute cor pulmonale ??? rls ??? Type 2 diabetes mellitus without complications SUBJECTIVE: Subjective: I was sleeping so well PATIENT GOALS: Patient's Primary Concern: pain control Home Situation: Type of Residence: Private Residence Lives with:: Daughter Steps to Enter: 2 Home Structure: One Story;Basement Primary Bedroom: First Floor Primary Bathroom: First Floor Bathroom : Tub/Shower Combo Equipment At Home: Chair-Shower;Cane-Straight;Walker-2 Wheeled;Walker-4 Wheeled with Seat;Grab Bars;CPAP Prior Level of Functioning: Mobility: Ambulate-In Home ;With Assistive Device Fallen Within 6 Mos: No Have Help at Home?: Yes, there is help at home now Who assists you at home?: Laboratory Tech;Friends/Family Oxygen at Home: CPAP at night Vision: Corrected with glasses Hearing Exceptions: No impairment Who manages medications?: daughter assists Pain Assessment: Pain Rating Score #: 8 Pain Location : Back Follow-up for pain: No follow-up for pain indicated and patient agreed to proceed with treatment OBJECTIVE: At start of therapy session, patient found in bed General Appearance: 66 yo F NAD LDAs: IV's: Peripheral line and Drains Edema: no edema noted in bilateral lower extremities Vitals: (*Assess the 3 levels of oxygen saturations both for room air and 02 unless rest on room air is 88% or less). Rest BP: HR: Sp02 Sp02 Room Air L O2 Ex/Gait/Activity Without 02 BP: HR: Sp02 Room Air Ex/Gait/Activity With 02 BP: HR: Sp02 L O2 Post Activity BP: HR: Sp02 Sp02 L O2 Room Air Observations: no SOB or dizziness Mental Status/Cognition: Level of Consciousness-Adult: Alert Orientation Level: Oriented X4 Cognition: Follows Commands-Consistent ROM: RLE: AROM WFL LLE: AROM WFL Strength: RLE:WFL LLE: WFL Sensation: RLE: intact LLE: intact Mobility: A gait belt and non-slip socks were used for all out of bed activity this date. Bed Mobility: Rolling: Stand By Assist Supine to Sit: Minimal Assistance with HOB flat Transfers: Sit to Stand: Minimal Assistance Stand to Sit: Stand By Assist Gait: Weight Bearing Status: (WBAT) Distance Ambulated: 20 FEET (10x2) Ambulation: Assistive Device: Walker-2 Wheeled Ambulation: Level of Assistance: Stand By Assist;Minimum Assistance Comments: decreased gait speed, andra Balance: Balance Scales/Tests Used: Sitting: Static/Dynamic;Standing: Static/Dynamic Sitting - Static: Fair + Sitting - Dynamic: Fair Standing - Static: Fair + Standing - Dynamic: Fair ACTIVITY TOLERANCE: Patient's activity tolerance: fair TREATMENT/INTERVENTIONS: evaluation, bed mobility training, transfer training, gait training, balance activities and monitoring of vitals Modified Yelena: EDUCATION: While performing PT, Patient was instructed in:functional mobility training, weight bearing status, safety awareness/fall precautions , use of adaptive equipment, discharge planning Presented to patient who demonstrates Good understanding [...] independently Patient will transfer sit to/from stand independently Patient will transfer bed to/from chair independently Patient will ambulate 150 feet independently and appropriate AD Patient will ascend/descent 2 steps with stand by assist Halfway Goal(s): Patient to be independent with functional [...] patient bedside chair, with call light within reach. * Damon Ortega RN - 10/31/2021 9:17 AM CDT EOS Summary: Pain: headache (intermittent) IV: 20g Right arm/20g Right wrist Neuro: wnl Cardiac: wnl, NSR Respiratory:wnl, CPAP when sleeping, tolerates well GI/: up to BR, BM pending Skin: wnl ADL: up with SBA, 10/31 shower prior to dinner ABNORMALS: -Notified NeuroSx team 2x during shift in regards to elevated BP, 177/123 @1230 and 160/130@ 1651, respectfully. Following the second reading, NeuroSurgery team was notified for pharmaceutical intervention. RN was informed that parameters of SBP >160 need to be met prior to rx intervention. RN VU, and administered Tylenol to patient in efforts to reduce BP. -Neurosx team was also notified that although we continue POC glucose checks, patient has no sliding scale or insulin administration ordered for glucose control. No intervention or order has been established at this time by the provider. Problem: Pain/Discomfort Goal: Patient exhibits reduced pain/discomfort [...] in the flowsheet documentation) Outcome: Progressing Problem: Skin Integrity Goal: Skin integrity is maintained or improved Outcome: Progressing Problem: Mobility Goal: Patient's mobility/activity will be maintained as optimum level for age, diagnosis and physical limitations Outcome: Progressing Goal: Continuum of care needs are further met through referral to outpatient services when appropriate. Outcome: Progressing Goal: Patient reports the ability to perform Activities of Daily Living. Outcome: Progressing Problem: Procedural Site (Incision) Care Goal: Incision remains intact with edges well approximated Outcome: Progressing Goal: Incision is free of infection. Outcome: Progressing * Sammy Cobb MD - 10/31/2021 8:51 AM CDT [facility] Neurosurgery Daily Progress Note Mohsen Marques, 66 year old, female : 1955 CSN: [id number] Primary Care Physician: Justen Gale MD - Admission Date/Time: 10/30/2021 3:05 AM - Hospital Day: 1 Subjective Patient seen and examined for postoperative check. Vitals Temp (24hrs), Av.1 ??F (36.7 ??C), Min:97.3 ??F (36.3 ??C), Max:98.8 ??F (37.1 ??C) BP 135/62 Pulse 72 Temp 97.3 ??F (36.3 ??C) Resp 20 Ht 1.549 m (5' 1 ) Wt 129.3 kg (285 lb) SpO2 97% BMI 53.85 kg/m2 Labs Recent Labs Component Name 10/30/21 2100 10/30/21 0533 10/06/21 1448 WBC 20.5* 20.5* 11.5* HGB 12.0 12.5 14.1 HCT 37.2 39.8 43.5 PLTCOUNT 255 298 334 Recent Labs Component Name 10/30/21 2100 10/30/21 1346 10/06/21 1448 INR 1.3 1.3 1.4 Cultures Blood Cultures: pending (+ blood culture reported at OSH, pending sensitivity report) Wound Cultures: Pending Urine Cultures: Pending Drain output Drain 1: (24 hours, last shift): 20 Physical Exam General: Awake, cooperative, in no acute distress. CV: Regular rate. Pulm: No audible wheezing, no use of accessory muscles Abd: soft, nontender, nondistended Neuro: Mental status: Alert, attentive, and oriented. Speech is clear and fluent. Cranial nerves: Grossly intact Motor: Muscle bulk and tone are normal. Strength is full bilaterally. Deltoid Bicep Tricep Furnace Process Plant Operator Wrist Ext Finger ext Hip Flexor Quad Hamstring Tib Ant Gastroc EHL Right 5 5 5 5 5 5 5 5 5 5 5 5 Left 5 5 5 5 5 5 5 5 5 5 5 5 Sensory: Light touch, pinprick, position sense, and vibration sense are intact in fingers and toes. Coordination: There are no abnormal or extraneous movements. Gait/Stance: Posture is normal. Heel and toe walking are normal. Assessment/Plan Patient is a 66 year old, female with history including back pain s/p T9-8 laminectomy for dorsal root column stimulator placement on 09/16/21 presenting to [facility] on 10/30/2021 with worsening pain around right lumbar battery site, reported fevers, and continued wound drainage (not actively draining). WBC 20.5, ESR 14.2, ESR 107. Imaging showed fat stranding surrounding generator battery. Pt is now s/p spinal cord stimulator battery removal with preservation of leads on 10/30/21. Neuro - Pending blood and wound cx and sensitivities - Continue broad spectrum abx (vanc and meropenem) - ID consult placed, appreciate recs - Drain care - Pain management - OOB with PT/OT - Advance diet as tolerated Hypertension - Not on medication (previously on lisinopril) Diabetes: - SSI Anxiety/Depression: - Continue amitriptyline PE/DVT: - SubQ heparin - Hold home xarelto LUL: - Not on home CPAP 1. Current Dispo: 2. Anticoagulation Status: Heparin 3. Antibiotics: vanc and meropenem 4. Diet: diabetic 5. PT/OT: ordered 6. Pain Control Sammy Cobb MD 10/31/2021 8:51 AM * Summer Howe RN - 10/30/2021 9:27 PM CDT Problem: Fall Risk Goal: Fall risk and fall related injury risk are minimized (interventions related to the fall risk can be found in the flowsheet documentation) Outcome: Progressing Problem: Skin Integrity Goal: Skin integrity is maintained or improved Outcome: Progressing Problem: Mobility Goal: Continuum of care needs are further met through referral to outpatient services when appropriate. Outcome: Progressing Goal: Patient reports the ability to perform Activities of Daily Living. Outcome: Progressing * Sammy Cobb MD - 10/30/2021 9:15 PM CDT [facility] Neurosurgery Daily Progress Note Mohsen Marques, 66 year old, female : 1955 CSN: [id number] Primary Care Physician: Justen Gale MD - Admission Date/Time: 10/30/2021 3:05 AM - Hospital Day: 0 Subjective Patient seen and examined for postoperative check. Vitals Temp (24hrs), Av.4 ??F (36.9 ??C), Min:97.9 ??F (36.6 ??C), Max:99.1 ??F (37.3 ??C) BP 117/71 Pulse 88 Temp 98.4 ??F (36.9 ??C) (Oral) Resp 13 Ht 1.549 m (5' 1 ) Wt 129.3 kg (285 lb) SpO2 96% BMI 53.85 kg/m2 Labs Recent Labs Component Name 10/30/21 0533 10/06/21 1448 09/23/21 2045 WBC 20.5* 11.5* 13.0* HGB 12.5 14.1 12.3 HCT 39.8 43.5 38.5 PLTCOUNT 298 334 319 Recent Labs Component Name 10/30/21 1346 10/06/21 1448 INR 1.3 1.4 Cultures Blood Cultures: pending (+ blood culture reported at OSH, pending sensitivity report) Wound Cultures: Pending Urine Cultures: Pending Drain output Drain 1: (24 hours, last shift): N/a Physical Exam General: Awake, cooperative, in no acute distress. CV: Regular rate. Pulm: No audible wheezing, no use of accessory muscles Abd: soft, nontender, nondistended Neuro: Mental status: Alert, attentive, and oriented. Speech is clear and fluent. Cranial nerves: Grossly intact Motor: Muscle bulk and tone are normal. Strength is full bilaterally. Deltoid Bicep Tricep Furnace Process Plant Operator Wrist Ext Finger ext Hip Flexor Quad Hamstring Tib Ant Gastroc EHL Right 5 5 5 5 5 5 5 5 5 5 5 5 Left 5 5 5 5 5 5 5 5 5 5 5 5 Sensory: Light touch, pinprick, position sense, and vibration sense are intact in fingers and toes. Coordination: There are no abnormal or extraneous movements. Gait/Stance: Posture is normal. Heel and toe walking are normal. Assessment/Plan Patient is a 66 year old, female with history including back pain s/p T9-8 laminectomy for dorsal root column stimulator placement on 09/16/21 presenting to [facility] on 10/30/2021 with worsening pain around right lumbar battery site, reported fevers, and continued wound drainage (not actively draining). WBC 20.5, ESR 14.2, ESR 107. Imaging showed fat stranding surrounding generator battery. Pt is now s/p spinal cord stimulator battery removal with preservation of leads on 10/30/21. Neuro - Pending blood and wound cx and sensitivities - Continue broad spectrum abx (vanc and meropenem) - ID consult placed, appreciate recs - Drain care - Pain management - OOB with PT/OT - Advance diet as tolerated Hypertension - Not on medication (previously on lisinopril) Diabetes: - SSI Anxiety/Depression: - Continue amitriptyline PE/DVT: - SubQ heparin - Hold home xarelto LUL: - Not on home CPAP Patient Active Problem List Diagnosis ??? Chronic back pain ??? CVA (cerebral vascular accident) ??? Anxiety and depression ??? Chronic anticoagulation ??? Essential hypertension Last Assessment & Plan: On lisinopril ??? Type 2 diabetes mellitus without complication Last Assessment & Plan: Hold janument. Start on SSI and accucheks Last Assessment & Plan: Hold janument. Start on SSI and accucheks Last Assessment & Plan: Chronic. Controlled. -continue home insulin regimen of lantus 50 units q am -lispro 20 units with breakfast and lunch. 22 units with dinner. ??? LUL (obstructive sleep apnea) Last Assessment & Plan: Chronic, on CPAP at home - Continue home CPAP ??? Neuropathy ??? Preoperative examination ??? Acute post-operative pain ??? S/P insertion of spinal cord stimulator 1. Current Dispo: 2. Anticoagulation Status: Heparin 3. Antibiotics: vanc and meropenem 4. Diet: diabetic 5. PT/OT: ordered 6. Pain Control Sammy Cobb MD 10/30/2021 9:19 PM * Mary Ge RN - 10/30/2021 6:25 PM CDT Problem: Pain/Discomfort Goal: Patient exhibits [...] found in the flowsheet documentation) Outcome: Progressing Got pt from pacu around 6pm. Pt doing well, will continue to monitor * Sammy Cobb MD - 10/30/2021 12:10 PM CDT Imaging reviewed by Dr. Gregg. Pt will be posted as level 4 surgery for removal of spinal cord stimulator battery and possibly stimulator lead. Pt has h/o DVT. - NPO, sips with meds - Hold anticoagulation - Admit to Neurosurgery - Dr. Gregg documented in this encounter H&P Notes * Pam Del Real MD - 10/30/2021 5:11 AM CDT Neurosurgery History and Physical Name: Mohsen Marques : 1955 Date of Admission:10/30/2021 Date of Consult:10/30/2021 5:12 AM Chief Complaint (CC): wound drainage HISTORY OF PRESENT ILLNESS (HPI): Patient is a 66 year old female with history including back pain s/p T9-8 laminectomy for dorsal root column stimulator placement on 09/16/[address] [facility] on 10/30/2021 with worsening painaround right lumbar battery site, reported fevers, and continued wound drainage. Patient was last seen in ED on 10/06/21 which concerns for wound drainage but at that time the patient has no white count, fever, or current drainage from the wound and was sent home with clinic follow up. Patient states the wound has drained intermittently on and off in the last three weeks. She had continued worsening pain near the generator site and was overall feeling unwell so presented to OSH ED. WBC 22, afebrile at OSH, CT abdomen/pelvis demonstrated increased fat stranding. Patient transferred to U for further care. Patient states she has been dealing with a UTI and strep throat as well recently in addition to the spinal cord stimulator generator drainage. Patient states she is getting very good benefit fromher stimulator and would not like to lose it. Medical problems on admission: Chronic back pain POA: Yes Anxiety and depression POA: Yes Chronic anticoagulation POA: Yes CVA (cerebral vascular accident) POA: Yes Essential hypertension POA: Yes Neuropathy POA: Yes LUL (obstructive sleep apnea) POA: Yes Type 2 diabetes mellitus without complication POA: Yes S/P insertion of spinal cord stimulator POA: Unknown Past Medical History: Diagnosis Date ??? Breast [...] tablet Take 5 mg by mouth TID. rivaroxaban (XARELTO) 10 MG tablet Take 20 mg by mouth daily with dinner. rOPINIRole (REQUIP) 5 MG tablet TAKE 1 TABLET BY MOUTH EVERY NIGHT Current Facility-Administered Medications Medication ??? morphine injection 4 mg ??? ondansetron (disintegrating) (Zofran ODT) tablet 4 mg Current Outpatient Medications Medication ??? amitriptyline [...] ??? oxybutynin (DITROPAN) 5 MG tablet ??? rivaroxaban (XARELTO) 10 MG [...] Heart Disease Brother REVIEW OF SYSTEMS Constitutional: Positive for fevers, wound drainage Eyes: Negative Ears, nose, mouth, throat, and face: Negative Respiratory: Negative Cardiovascular: Negative Gastrointestinal: Negative Genitourinary:negative Hematologic/lymphatic: Negative Musculoskeletal:Negative Neurological: Negative Behavioral/Psych: Negative PHYSICAL EXAM BP 159/82 Pulse 80 Resp 20 Ht 1.549 m (5' 1 ) Wt 129.3 kg (285 lb) SpO2 97% BMI 53.85 kg/m2 General: NAD Cardiovascular: RRR Respiratory: CTAB Abdominal: S, NT, ND Neuro: awake, alert, oriented, ou=r, face symmetric, follows commands x4 with 5/5 strength throughout, pain limited in lower extremities, sensation intact to light touch, mid-thoracic incision well healed, right lumbar incision erythematous and warm and tender to touch LABORATORY Recent Labs Component Name 10/06/21 1448 WBC 11.5* HGB 14.1 HCT 43.5 PLTCOUNT 334 Recent Labs Component Name 10/06/21 1448 NA 138 POTASSIUM 4.2 CO2 27 BUN 19 CREATININE 0.69 GLUCOSE 171* Recent Labs Component Name 10/06/21 14[address] (imaging not reviewed): EXAM DESCRIPTION: ?? CT ABDOMEN PELVIS W CONTRAST REASON FOR STUDY: ?? Sepsis, draining wound possible abscess right buttock,. ?? Sepsis with leukocytosis Urinary frequency and having fever and chills today. TECHNIQUE: CT scan of the abdomen and pelvis performed with intravenous and ?? without ??oral contrast using helical scanning technique with dynamic intravenous contrast injection. Reconstructed coronal and sagittal MPR images reviewed. All images stored on PACS. Automated exposure control was used as a dose optimization technique for this examination. CONTRAST TYPE/DOSE: ?? 100mL of IOVERSOL 350 MG IODINE/ML INTRAVENOUS SYRINGE ?? injected via ?? intravenous COMPARISON: ?? 10/15/2021 FINDINGS: LOWER CHEST: ?? There is mitral annulus calcification. ??There are multiple stable small pulmonary nodules at the left lung base, noncalcified, measuring up to 5 mm. LIVER: ?? Normal size. ??No identified cystic or solid masses. GALLBLADDER: ?? Surgically absent. BILE DUCTS: ?? No intrahepatic or extrahepatic ductal dilatation. SPLEEN: ?? Normal size. ??No focal lesions. PANCREAS: ?? No identified cystic or solid masses. No significant calcifications. No adjacent inflammation or peripancreatic fluid collections. Pancreatic duct not dilated. ?? ADRENALS: ?? Normal. KIDNEYS/URINARY TRACT: ?? There is a cyst in the right kidney. ??No suspicious mass in the left kidney. ??There is no hydronephrosis or renal stone. ? Urinary bladder is unremarkable. GI: ?? The colon is normal in course and in caliber and without wall thickening or evidence of obstruction. ??There are scattered diverticula without evidence of acute diverticulitis.. ??The appendix appears normal. ??The distal esophagus and stomach appear unremarkable.. ??The small bowel appears normal. PERITONEUM: ?? No ascites or free air. RETROPERITONEUM: ?? No mass or adenopathy. REPRODUCTIVE: ?? No significant abnormality. VASCULATURE: ?? No abdominal aortic aneurysm. MUSCULOSKELETAL: ?? There is fat stranding surrounding the right lower back/buttock subcutaneous generator pack. ??Mild fat stranding tracks along the spinal stimulator lead, where it enters the spinal canal the level of T8.. ??At the site of the laminectomies at T7/T8 there is a 5.9 by 2.5 by 3.9 cm fluid collection with somewhat thick rim, which is equivocally enhancing. ??This fluid collection surrounds the spinal stimulator leads and approximates the dorsal spinal canal. ??While it is poorly assessed, there is no definitive evidence of fluid collection within the spinal canal. ??The fluid collection appears mildly decreased in size since 10/15/2021. ??Fat stranding surrounding the generator pack has increased??from the prior exam Sequela of sacroiliitis is redemonstrated. 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 ??No acute fracture or aggressive bone lesion is identified. ??There are degenerative changes in the visualized spine. OTHER: ?? There is change from ventral abdominal hernia repair with multiple clips. IMPRESSION: ?? Increased fat stranding surrounding the generator pack in the subcutaneous right lower back/buttocks extending to the skin surface with skin thickening, suspicious for inflammation or cellulitis.. ??Mild fat stranding tracks along the spinal stimulator lead. ??5.9 x 2.5 x 3.9 cm fluid collection at the site of the thoracic laminectomies surrounding the distal aspect of the spinal stimulator leads with equivocal rim enhancement. ??This fluid collection could be sterile/postoperative or infected. ??Recommend correlation with surgical history. Assessment/Plan: 66 year old female with history including back pain s/p T9-8 laminectomy for dorsal root column stimulator placement on 09/16/[address] [facility] on 10/30/2021 with worsening pain around rightlumbar battery site, reported fevers, and continued wound drainage (not actively draining). WBC 20.5, ESR 14.2, ESR 107. Will review imaging/ labs with Dr. Gregg and discuss further plan. Case to be discussed with Dr. Gregg. Pam Del Real MD 10/30/2021 5:12 AM documented in this encounter Consult Notes * Tete Nunes RN - 11/05/2021 2:29 PM CDT PATIENT IS DISCHARGE PLANNED FOR TODAY. HAVE SPOKEN WITH THE PATIENT TO VERIFY HER HOME CARE PREFERENCE ^ DEMOGRAPHICS. REFERRAL HAS BEEN COMPLETED WITH A PLANNED SOC FOR TOMORROW. JULIO NUNES RN REFERRAL LIAISON [facility] * Tete Nunes RN - 11/01/2021 5:11 PM CDT HOME CARE REFERRAL RECEIVED FOR PATIENT & IS PROCESSING. [facility] HAS APPROVED PATIENT FOR A START OF CARE. THANK YOU FOR THIS REFERRAL. JULIO NUNES RN REFERRAL LIAISON [facility] * Aminah Oneill MD - 10/31/2021 10:45 AM CDTAssociated Order(s): IP CONSULT TO INFECTIOUS DISEASES [facility] Infectious Diseases Consultation Patient Name: Mohsen Marques 1955 Room: [facility] Date of Admission: 10/30/2021 Date of Service: 10/31/2021 Primary Care Physician: Justen Gale MD Attending Physician: Maxi Gregg MD Reason for consultation: Infected battery site of spinal stimulation system HPI: Mohsen Marques is a 66 year old female with PMH of T2DM, HTN, CHF, PE/DVT on Xarelto, breast cancer s/p b/l mastectomy, chronic back pain s/p T8-T9 laminectomy for placement of dorsal column stimulation system and placement of the battery in the??right??lower lumbar region (09/16/2021), who presented to [facility] on 10/30/2021 as transfer from OSH ([facility]) for further management of infected battery site of spinal stimulation system. The patient received a dose of IV vancomycin pranay-op of surgery of placement of spinal stimulation system on 09/16/2021. She then developed rash to her back and ulcers in mouth around 09/19 and had ED visits x 2 for this, supportive care was given. A couple of weeks later she noted wound drainage in the battery site with increase in pain. She presented to [facility] ED again on 10/06, note purulent drainage from incision , labs notable for mild leukocytosis WBC of 11.5, BCx was sent (later no growth), then was given clindamycin for 14 days (she reported she didn't take it). The course was complicated by UTI and Strep throat , for which she received a few fays of Bactrim, then nitrofurantoin butdeveloped rash again. The wound at battery site was never healed with intermittent drainage, with associated pain, for which she had multiple ED visits. On 10/29, she spiked fever 100.5. She went to OSH ED. Labs notable for WBC 22. BCx was sent. CT A/P w contrast showed increase in fat stranding surrounding the battery pack, mild fat stranding tracks along the spinal stimulator lead, as well as a??5.9 x 2.5 x 3.9 cm fluid collection at the site of the thoracic laminectomies surrounding the distal aspect of the spinal stimulator leads with equivocal rim enhancement. IV vancomycin and aztreonamwere given. She was then transferred to [facility] for neurosurgery evaluation and management. Upon arrival to [facility], Tmax 99.1, VSS, leukocytosis WBC of 20.5 (neut 93%). BCx was sent. UA WBC 6-10, UCx no growth. Started on IV vancomycin and meropenem. On 10/30, she was taken to the OR with neurosurgery for removal of battery in the right??lower lumbar region and irrigation of the wound, purulent collection noted, cultures were sent (pending), Gram stain with heavy PMN and light GNB. On 10/31, ID consulted for Abx management. Past Medical History: Diagnosis Date ??? Breast [...] on file Housing Stability: Not on file Living situation: Lives with daughter Pets: cats and dogs Family History Problem Relation Name Age of Onset ??? Heart Disease Mother ??? Diabetes Mother ??? Cancer Father ??? Hemochromatosis Father ??? Cancer Sister ??? Heart Disease Brother Allergies Allergen Reactions ??? Latex Rash ??? [...] Reslizumab Unknown ??? Skin Adhesives Skin Reactions ROS: General: weight loss, decreased PO intake, +fatigue, weakness, +fever/chills HEENT: vision changes, hearing loss, tinnitus, rhinorrhea, hoarseness, +sore throat Cardiac: chest pain, palpitations, dyspnea on exertion Respiratory: shortness of breath, wheezing, cough, sputum, hemoptysis Gastrointestinal: dysphagia, odynophagia, abdominal pain, nausea, vomiting, change in bowel habits,diarrhea, constipation Genitourinary: +dysuria, hematuria, hesitancy, frequency Musculoskeletal: muscle weakness, joint pain or stiffness, limited range of motion Neurologic: numbness or tingling in extremities, dizziness, lightheadedness, headache Hematologic: easy bruising/bleeding Endocrine: thyroid problems, +diabetes Skin: rashes, itching Psychiatric: recent depression, anxiety Home medications: Prior to Admission medications Medication Sig Start Date End Date Taking? Authorizing Provider amitriptyline (ELAVIL) 25 MG tablet at bedtime Tyler Smith MD B-D ULTRAFINE III SHORT PEN 31G X 8 MM needle USE 6 TIMES DAILY DIRECTED 06/24/21 Tyler Smith MD enoxaparin (LOVENOX) 40 MG/0.4ML injection Inject 40 mg subcutaneously every 12 hours 08/19/21 Tyler Smith MD exemestane (AROMASIN) 25 MG tablet Take 25 mg by mouth DAILY 04/20/17 Tyler Smith MD HUMALOG KWIKPEN 100 UNIT/ML pen ADMINISTER 22 UNITS BEFORE EACH MEAL. MAX DAILY DOSE OF 120 UNITS 03/21/21 Tyler Smith MD HYDROcodone-acetaminophen (NORCO) 7.5-325 MG tablet Take 1 tablet by mouth every 6 hours as needed for Pain Tyler Smith MD insulin pen needle (Johanne-Kary ULTRAFINE III SHORT PEN) 31G X 8 MM needle USE 6 TIMES DAILY DIRECTED 06/23/21 Tyler Smith MD Lancets (ONETOUCH DELICA PLUS 33G EXTRA FINE LANCET) USE FOUR TIMES DAILY 03/10/21 Tyler Smith MD LANHeydiUS SOLOSTAR pen ADMINISTER 50 UNITS UNDER THE SKIN EVERY MORNING 03/16/21 Tyler Smith MD naloxone HCl (NARCAN) 4 MG/0.1ML nasal spray CALL 911. SPR CONTENTS OF ONE SPRAYER (0.1ML) INTO ONENOSTRIL. REPEAT IN 2-3 MIN IF SYMPTOMS OF OPIOID EMERGENCY PERSIST, ALTERNATE NOSTRILS Patient not taking: No sig reported 05/13/21 Tyler Smith MD OneTouch Delica Lancets 33G MISC Use 4 times daily 03/09/21 Provider, Historical, MD ONETOUCH ULTRA test strip 4 times daily 02/01/21 Tyler Smith MD oxybutynin (DITROPAN) 5 MG tablet Take 5 mg by mouth TID. 04/20/17 Tyler Smith MD rivaroxaban (XARELTO) 10 MG tablet Take 20 mg by mouth daily with dinner. 04/20/17 Tyler Smith MD rOPINIRole (REQUIP) 5 MG tablet TAKE 1 TABLET BY MOUTH EVERY NIGHT 06/09/21 Tyler Smith MD Inpatient medications ??? 0.9% NaCl 3 mL Intracatheter q8h ??? amitriptyline 25 mg Oral AT BEDTIME ??? exemestane 25 mg Oral QDAY ??? heparin 5,000 Units Subcutaneous q8h ??? meropenem 1,000 mg Intravenous q8h ??? oxybutynin 5 mg Oral TID ??? rOPINIRole 5 mg Oral AT BEDTIME ??? vancomycin 1,500 mg Intravenous q12h ??? vancomycin (VANCOCIN) IV dose per pharmacy Does not apply DIRECTED 0.9% NaCl IV, , Last Rate: 75 mL/hr at 10/30/21 1842 PRN Medications ??? SALINE LOCK, INSERT AND MAINTAIN AND 0.9% NaCl AND 0.9% NaCl ??? dextrose IV for hypoglycemia OR dextrose IV for hypoglycemia ??? glucagon ??? glucose (Diabetic Use) ??? glucose (Diabetic Use) gel ??? glucose chew tab ??? HYDROcodone-acetaminophen Current Abx IV vancomycin (10/30 - ) Meropenem 1 g IV q8h (10/30 ) Prior Abx at [facility] N/A Prior Abx at OSH IV vancomycin (10/29) Aztreonam (10/29) OBJECTIVE: Vital Signs: BP 135/62 Pulse 72 Temp 97.3 ??F (36.3 ??C) Resp 20 Ht 5' 1 (1.549 m) Wt 285 lb (129.3 kg) SpO2 97% BMI 53.85 kg/m2 Temp (24hrs), Av.1 ??F (36.7 ??C), Min:97.3 ??F (36.3 ??C), Max:98.8 ??F (37.1 ??C) PHYSICAL EXAM General: Alert, no distress, not toxic appearing, obese Head: Normocephalic, atraumatic Eyes: PERRLA, normal conjunctiva, anicteric sclerae Nose: No deformity Mouth and Throat: No thrush Neck: Supple, symmetrical, no JVD Chest wall: No tenderness or deformity Lungs: Clear to auscultation bilaterally Heart: RRR, S1, S2 normal, no murmur Abdomen: Soft, non-distended, non-tender, +BS Back: Thoracic spine midline surgical incision healed with no tenderness. Right lower back surgicaldressing, +drain Extremities: Atraumatic, no cyanosis or edema Skin: No rash Neurologic: Alert and oriented x 3, grossly intact Psychiatry: Appropriate mood/affect Lines: PIVs Right lower back drain Labs: CBC: Recent Labs Component Name 10/30/21209910/30/2153210/06/21 1448 04/20/17 0404 01/27/12 1157 WBC 20.5* 20.5* 11.5* - 8.8 RBC 4.07 4.28 4.69 - 4.71 HGB 12.0 12.5 14.1 - 13.2 HCT 37.2 39.8 43.5 - 41.6 MCV 91.4 93.0 92.8 - 88.3 PLT - - - - 330 - = values in this interval not displayed. BMP: Recent Labs Component Name 10/30/21209910/30/2153210/06/21 1448 04/20/17 0404 01/27/12 1157 NA 137 135* 138 - 139 K - - - - 3.7 CL 102 99 101 - 106 CO2 25 27 27 - 24 BUN 13 14 19 - 17 CREATININE 0.68 0.63 0.69 - 0.6 GLU - - - - 143* ALB 2.7* 2.8* 3.8 - 3.2* PROT 7.2 7.2 9.0* - 7.4 7.8 - = values in this interval not displayed. estimated creatinine clearance is 104.7 mL/min (by C-G formula based on SCr of 0.68 mg/dL). LFTs: Recent Labs Component Name 10/30/21209910/30/2153210/06/21 1448 09/23/21 2045 04/20/17 0404 01/27/12 1157 ALKPHOS 74 77 86 78 77 90 ALT 14 14 19 21 17 14 AST 9 11 17 15 17 13 LIPASE - - - - 34 - MICROBIOLOGY: Blood culture: 10/06/2021: x 2 No growth day 5 10/26/2021: x 2 No growth 10/30/2021: x 2 No growth Urine culture: 10/25/2021: >100,000 colonies/mL of Escherichia coli 10/30/2021: <10,000 CFU/mL urogenital evelio OR RIGHT LOWER BACK WOUND FLUID (10/30/2021): Gram stain: Heavy PMN, light GNB Culture: in process Anaerobic Cx: in process Fungal smear: No yeast or hyphae seen; Cx: in process HISTOPATHOLOGY: None at this admission. IMAGING & PROCEDURE: CT ABDOMEN PELVIS WO CONTRAST (10/26/2021): OSH 1. Postoperative changes in the thoracic spine at approximately T8-9 level with spinal stimulator leads entering the spinal canal at approximately T7-8 level with slight rostral extension. 2. ??Transitional lumbosacral junction with presumed??partial sacralization of L5 and hypoplastic L5/S1 disc. 3. ??Advanced sacroiliitis. [id number] pubic osteitis.??Mild spondylosis in the lumbar and inthe included lower thoracic spine. 4. ??Moderate stool in the colon. Colonic diverticulosis without diverticulitis. 5. ??Postoperative changes of hernia repair in the anterior periumbilical region and anterior pelvic wall. 6. ??Several small noncalcified pulmonary nodules in the inferior lingula and left lower lobe are stable since 03/14/2019, likely postinfectious/postinflammatory. ??No further routine follow-up imaging is recommended. CT ABDOMEN PELVIS W CONTRAST (10/29/2021): OSH Increased fat stranding surrounding the generator pack in the subcutaneous right lower back/buttocks extending to the skin surface with skin thickening, suspicious for inflammation or cellulitis.??Mild fat stranding tracks along the spinal stimulator lead.??5.9 x 2.5 x 3.9 cm fluid collection at the site of the thoracic laminectomies surrounding the distal aspect of the spinal stimulator leads with equivocal rim enhancement. This fluid collection could be sterile/postoperative or infected. ??Recommend correlation with surgical history. XR CHEST 1VW PORTABLE (10/30/2021): There is underpenetration of the x-ray beams.?? Leads of an electronic device superimposes the thoracic spine. Retrocardiac opacity pulmonary vascular congestion could represent pulmonary mass or congestion with a component of atelectasis and/or airspace disease in the lingula. The cardiac silhouette is obscured. The mediastinal silhouette is mildly enlarged. The visible bony thorax is intact. ?? ASSESSMENT AND RECOMMENDATIONS: 1. Infection in the battery site of spinal stimulation system: ?? Had T8-T9 laminectomy for placement of dorsal column stimulation system and placement of the battery in the??right??lower lumbar region on 09/16/2021. Post op course has been complicated by wound drainage in the battery site for several weeks. ?? Follow blood culture ?? S/p 10/30 OR for removal of battery in the right??lower lumbar region, purulent collection noted, Gram stain with heavy PMN and light GNB, follow Cx. The leads and stimulator at thoracic region were preserved. ?? Per findings of OSH CT scan, a 5.9 x 2.5 x 3.9 cm fluid collection noted at the site of the thoracic laminectomies surrounding the distal aspect of the spinal stimulator leads with equivocal rim enhancement. Will discuss this with Dr. Gregg for plan of removal of the device in entirety. ?? Continue IV vancomycin and meropenem for now while awaiting result of Cx. 2. T2DM. 3. Renal function: Estimated Creatinine Clearance: 107.9 mL/min (by C-G formula based on SCr of 0.66 mg/dL). 4. Multiple antibiotic allergy: ceftriaxone (anaphylaxis and shortness of breath), cephalosporins (anaphylaxis and shortness of breath), levofloxacin (urticaria and skin reactions), nitrofurantoin (rash), piperacillin-tazobactam (rash) Plan/Recommendations: - Continue IV vancomycin (goal trough 15-20) and meropenem 1 g IV q8h - Follow wound culture (collected 10/30 in the OR). - Follow blood culture - Will discuss with Dr. Gregg for plan of removal of the device in entirety. - Follow CBC with diff, and CMP Thank you for allowing us to participate in the care of this patient. We will continue to follow and monitor. Primary team: Neurosurgery (Plan discussed with primary team) Aminah Oneill M.D., PhD. Infectious Diseases (will call clerk) Pager [phone] documented in this encounter OR Notes * Brief Op Note - Eron Hill - 11/05/2021 3:02 PM CDT Vascular & Interventional Radiology Brief Post-Procedure Note Patient: Mohsen Marques Attending: Baudilio Fitzgerald MD Bean Sorter: Jovi Goode MD, Eron Hill MS4 Diagnosis: Long-term access required for post-operation wound infection requiring long-term antibiotics Indication: Long-term IV antibiotics Procedure: Right upper extremity PICC placement Findings: Successful placement of a double lumen 5 Fijian x 39 cm power PICC via the right basilic vein under ultrasound and fluoroscopic guidance. Tip of catheter is at the SVC-RA junction. Anesthesia: Local with 1% Lidocaine Additional medications given: None Estimated blood loss: Minimal Specimens: None Immediate complications: None Follow-up: The catheter can be used now. Time out and final pre-procedure assessment completed immediately prior to start of procedure. Intra-procedure orders and medication record reviewed. Medications and doses administered by staff as verbally ordered. See detailed procedure note with images in PACS. Associated attestation - Baudilio Fitzgerald MD - 11/05/2021 4:31 PM CDT Attending Physician Attestation: I agree with the medical student's note and was present throughoutthe entire procedure. - Baudilio Fitzgerald MD * Brief Op Note - Genaro Candelario MD - 10/30/2021 4:26 PM CDT Brief Op Note Procedure: RIGHT BUTTOCKS DEEP WOUND INFECTION; WOUND WASHOUT AND REMOVAL OF SPINAL CORD STIMULATORGENERATOR Patient Name: Mohsen Marques Date of Service: 10/30/2021 Pre-Op Diagnosis: s/p permanent spinal cord stimulator insertion, surgical wound dehiscence and concerns for infection (right buttocks) Post-Op Diagnosis: deep wound infection with purulent collection inside subcutaneous generator pocket Surgeon(s) and Role: * Maxi Gregg MD - Primary * Genaro Candelario MD - Resident - Assisting Anesthesia Type: general ETT Complications: none Findings: Purulent collection inside generator pocket, the wound was copiously irrigated and debrided, intraoperative Cx sent, the spinal cord neuro stimulator generator was removed and the leads were preserved EBL: minimal blood loss Urine Output : anesthesia chart IV Fluid Intake: anesthesia chart Drains: Drain 1 Flat Bulb Right;Lower Back (Active) Specimen(s): * No specimens in log * Implant(s): * No implants in log * Genaro Candelario MD * Operative - Maxi Gregg MD - 10/30/2021 4:26 PM CDT ?Operative Report ?? PATIENT NAME:??MOHSEN MARQUES ?MR#:?[id number] DATE OF :?10/30/2021? CSN:??[id number] ?? DATE OF ADMISSION: ??10/30/2021?INTRAOP DATE OF OPERATION: ??10/30/2021? PREOPERATIVE DIAGNOSIS: Infection in the battery site of spinal stimulation system ?? 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 PROCEDURE PERFORMED: Removal of battery in the right??lower lumbar region and irrigation of the wound. ?? SURGEON: Maxi Gregg M.D. ?? LOG TRUCK DRIVER: Ronnie Mina MD ?ANESTHESIA: General anesthesia. ?? INTRAOPERATIVE BLOOD LOSS: 30??mL. ?? COMPLICATIONS: No intraoperative complications. ?? HARDWARE: Cardenas - Selleration DR ?? PROCEDURE: The patient under anesthesia was placed in prone position on??a??Mundo table with a Rich frame.?? The wound in the right??lower lumbar region??was??prepped and draped. ??Then, a transverse incision of approximately 4 cm was performed in the??right lower lumbar region over the previous incisoin. Monopolar was used for dissection of the subcutaneous tissue??until visualization of the battery. There was a purulent collection. Cultures were sent. Wound was copiously irrigated with Irrisept. 500 mg. The wires were disconnected from the battery.500mg of Vancomycin powder was placed.7-size PAIGE drain was left deep in the wound. Wires were placed back in a corner in the subcutaneous pocket for later connection. Then, the??right lower lumbar region wound was closed by layers of Vicryl #1 for the deep subcutaneous tissue, Vicryl 2-0 for the proximal subcutaneous tissue??and Nylon 2.0 for the skin. ??The skin was dressed with antibiotic ointment, Telfa and tape. documented in this encounter ED Notes * Yesi Vences RN - 10/30/2021 2:21 PM CDT Report given to NURIS Christiansen in PACU. RN voices no concerns about patient. Will turn over care at thistime. * Yesi Vences RN - 10/30/2021 1:36 PM CDT Neurosurgery calls to request that held lab orders that were previously drawn by this RN be drawn. Informed physician that orders were discontinued by physician after labs were collected and sent andthat per lab, specimens were discarded. * Yesi Vences RN - 10/30/2021 12:26 PM CDT Exemestane 25 mg received from pharmacy. Contact treatment team regarding NPO-no exceptions order. Orders received for sips with meds. * Yesi Vences RN - 10/30/2021 11:14 AM CDT Lab contacted this RN due to lab specimens being discontinued by physician. Per medical service technician, they will be discarded. * Yesi Vences RN - 10/30/2021 10:25 AM CDT Contacted Marce in Pharmacy regarding Vancomycin dose. Per Marce, she would contact ordering providerto clarify dosage. * Gil Hill MD - 10/30/2021 6:19 AM CDT ASSUMED CARE NOTE Patient signed out to me by Dr. Castillo at 6:00 AM. Mohsen Marques is a 66 year old female is being evaluated for surgical wound infection. Since 09/16/21, patient reports dorsal column stimulation system with increased drainage from surgical site.Patient notes weakness for the past few days and UTI for the past few weeks. Per previous team's evaluations, patient is currently neuro intact. At this time the patient's condition is Stable. Pending neurosurgery recommendations. Plan is awaiting neurosurgery recommendations. Vitals: 10/30/21 0310 10/30/21 0331 10/30/21 0540 10/30/21 0757 BP: 159/82 131/68 Pulse: 85 80 86 Resp: 20 18 Temp: 99.1 ??F (37.3 ??C) SpO2: 97% 95% Weight: 129.3 kg (285 lb) Height: 1.549 m (5' 1 ) 6:35 AM: Patient reassessed. Patient resting comfortably, vital signs stable, in no acute distress. 11:11 AM: After discussion with Neurosurgery, the patient will be admitted to their service for further management of care. -I have reviewed the diagnostic findings with the patient and they have had an opportunity to ask me any questions they have about care, diagnosis, and reason for admission. The patient states understanding and agrees to admission. 12:00 PM: - ECG: Interpreted by me: Date: 10/30/2021 12-lead EKG as interpreted by myself showed NSR rhythm at a rate of 82 beats per minute. No axis deviation is noted. SD interval within normal limits at 124 ms. QRS interval at 88 milliseconds. QT interval within normal limits at 372 milliseconds. qTC 434. No ST elevation or depression seen. No T-wave inversions seen. Good QRS progression through precordial leads. EKG findings are consistent witha normal EKG with no evidence for ischemia/infarction/dysrhythmia. There are no ectopic beats. Clinical Impression: 1. S/P insertion of spinal cord stimulator 2. Preoperative examination 3. Acute post-operative pain Disposition: Admit to Neurosurgery By signing my name below, I, Siri Miranda, attest that this documentation has been prepared under the direction and in the presence of Dr. Hill. Signed: Kehinde Mckeon. I, Dr. Hill, personally performed the services described in this documentation. All medical record entries made by the scribe were at my direction and in my presence. I have reviewed the chart and agree that the record reflects my personal performance and is accurate and complete. Electronically signed: Dr. Hill Date: 11/03/21 Time: 5:34 AM * Lila Castillo MD - 10/30/2021 5:10 AM CDT ED Attending Note Interval History: Mohsen Marques is a 66 year old female with a history of DM, HTN, and CHT presenting to the ED with concern for surgical wound infection. She reports weakness lasting for the past several days andan ongoing UTI for the past several weeks. Pt reports using a dorsal column stimulation system since September 16 of this year, where she also notes increased drainage from the surgical site. She experienced fevers and chills yesterday but otherwise denies associated CP, cough, SOB, nausea, or vomiting. No other complaints or modifying factors at [...] Stability: Not on file Review of Systems: (+) positive All systems negative except as marked. Constitutional: + Fever HENT: Negative for sore throat. Eyes: Negative for visual changes Respiratory: Negative for SOB, cough Cardiovascular: Negative for chest pain, palpitations Gastrointestinal: Negative abdominal pain, nausea, vomiting, diarrhea Genitourinary: Negative for difficulty urinating, hematuria, dysuria Musculoskeletal: Negative for neck pain, back pain, myalgia Skin: Negative for rash, itching Neurological: Negative for CAZARES, dizziness, numbness, tingling, + weakness, fatigue, chills Psychiatric: Negative for SI, hallucinations, anxiety Vitals: 10/30/21 0310 10/30/21 0331 10/30/21 0540 BP: 159/82 131/68 Pulse: 85 80 86 Resp: 20 18 SpO2: 97% 95% Weight: 129.3 kg (285 lb) Height: 1.549 m (5' 1 ) Exam: Constitutional: well developed, well nourished, no acute distress, obese HENT: normocephalic, atraumatic, moist oral mucosa, conjunctiva normal Eyes: PERRL, no drainage Neck: supple, normal ROM Cardiovascular: regular rate and rhythm, no murmur Respiratory: clear to auscultation bilaterally, no wheezes, no respiratory distress Abdomen: soft, non-distended, generalized abd tenderness mainly in suprapubic region. Musculoskeletal: no edema or deformities Skin: warm, dry. Right buttock 10 cm diameter of erythema with 0.5cm open wound. No active drainage. Neurological: awake, alert&Ox4, moving all extremities, no focal motor/sensation deficits. Psychiatric: mood and affect normal MDM: Problem List: 1) Concern for wound infection Differential diagnosis to evaluate in the emergent setting: abscess Infected hardware Cellulitis Normal wound healing Workup: See lab testing and radiography ordered Treatment plan: Symptom control with pain medication Workup with labs/imaging Found to have the concern for wound infection from outside hospital, will discuss with neurosurgery. Reassess 5:51 AM: Will start patient on Vancomycin and Meropenem after discussion with pharmacist. 6:00 AM: PUNEET to Dr. Hill, pending neurosurgery recommendations Results: Labs Reviewed CBC W AUTO DIFFERENTIAL - Abnormal; Notable for the following components: Result Value WBC 20.5 (*) Neutrophils % 82.3 (*) Lymphocytes % 8.8 (*) Neutrophils Absolute 16.83 (*) Monocytes Absolute 1.52 (*) All other components within normal limits CULTURE BLOOD CULTURE BLOOD CULTURE URINE COMPREHENSIVE METABOLIC PANEL ERYTHROCYTE SEDIMENTATION RATE C-REACTIVE PROTEIN URINALYSIS REFLEX TO MICROSCOPIC NO CULTURE No orders to display ED course: The patient's Oxygen Saturation Monitor was interpreted by me. The reading was 97%. The patient wason RA at the time of the reading. This is interpreted as normal. Consult No Orders and Medicine administered during this encounter: Orders Placed This Encounter ??? CULTURE BLOOD ??? CULTURE URINE ??? CBC W AUTO DIFFERENTIAL ??? COMPREHENSIVE METABOLIC PANEL ??? ERYTHROCYTE SEDIMENTATION RATE ??? C-REACTIVE PROTEIN ??? URINALYSIS REFLEX TO MICROSCOPIC NO CULTURE ??? morphine injection 4 mg ??? ondansetron (disintegrating) (Zofran ODT) tablet 4 mg ??? vancomycin (Vancocin) IV dose per pharmacy ??? meropenem (Merrem) 1,000 mg in 0.9% NaCl IV 50 mL IVPB Medications vancomycin (Vancocin) IV dose per pharmacy (has no administration in time range) meropenem (Merrem) 1,000 mg in 0.9% NaCl IV 50 mL IVPB (has no administration in time range) morphine injection 4 mg (4 mg Intravenous $ Given 10/30/21 0537) ondansetron (disintegrating) (Zofran ODT) tablet 4 mg (4 mg Oral $ Given 10/30/21 0536) Clinical Impression: 1. S/P insertion of spinal cord stimulator 2. Preoperative examination 3. Acute post-operative pain 4. Chronic anticoagulation Scripts: Disposition: PUNEET to Dr. Hill Follow-up: By signing my name below, I, Rey Duran, attest that this documentation has been prepared under the direction and in the presence of Dr. Castillo. Signed: Kehinde Le Chi. I, Dr. Castillo, personally performed the services described in this documentation. All medical record entries made by the scribe were at my direction and in my presence. I have reviewed the chart and agree that the record reflects my personal performance and is accurate and complete. Signed: Dr. Castillo. 11/07/2021. 10:54 PM. * Colten Almendarez MD - 10/30/2021 3:56 AM CDT EMERGENCY MEDICINE RESIDENT NOTE History of Present Illness: Mohsen Marques is a 66 year old female with a PMHx of DM, HTN, CHT, PE/DVT on xarelto who [facility] from an OSH for a surgical wound infection. She has had generalized weakness for several days and dealing with a urinary tract infection for the past couple weeks. She began to have chills and fevers today with a temp of 105. She has a history of chronic axial low back pain and leg pain s/p t8-t9 laminectomy for placement of a dorsal column stimulation system on 09/16/[address] Gregg. Over the last few weeks she had had a wound to her right buttocks where the battery pack is located for the stimulator. Over the past several day she has noticed increased drainage from this site. Workup at OSH ED revealed sepsis with WBC 21. CT revealed at the site of the laminectomies at t7/p1jbpib is a 5.9 by 2.5 by 3.9 cm fluid collection surrounding the spinal stimulator leads. [facility] was consulted and they recommended transfer for further evaluation. Patient was given vancomycin and ertapenem at the OSH. Past Medical History: Past Medical History: Diagnosis [...] 40 mg subcutaneously every 12 hours ??? exemestane (AROMASIN) 25 MG tablet Take [...] Take 5 mg by mouth TID. ??? rivaroxaban (XARELTO) 10 MG tablet Take [...] Systems (positives in bold, otherwise negative) Constitutional: Fevers and chills HENT: Congestion, sore throat, nosebleeds, dysphagia, changes in hearing Eye: Visual changes, blurry vision, double vision Respiratory: Cough, shortness of breath Cardiac: Chest pain, palpitations, orthopnea, PND GI: Nausea, vomiting, diarrhea, constipation, abdominal pain : Dysuria, increased frequency MSK: Swelling, joint pain, myalgias Skin: Rash, itching. Wound to R buttocks. Neuro: Headache, focal weakness, numbness Psych: Mood changes See above and also HPI, otherwise negative. Physical Exam BP 137/73 Pulse 68 Temp 97.3 ??F (36.3 ??C) Resp 18 Ht 1.549 m (5' 1 ) Wt 129.3 kg (285 lb) SpO2 100% BMI 53.85 kg/m2 General: Alert, no apparent distress, well developed, well nourished. Obese. HEENT: Normocephalic, atraumatic Eyes: PERRL, EOMI, sclera and conjunctiva clear Nose: nasal passages clear, no rhinorrhea Ears: external ear normal, no otorrhea Mouth: MMM, no exudate Neck: No JVD, Supple. Non-tender. Full ROM without rigidity Back: No midline spinal or CVA tenderness Cardiac: RRR, normal S1/S2, no murmur. 2+ radial pulses Lung: Distant breath sounds, no wheezes, rales, or rhonchi; nonlabored breathing, no use of accessory muscles Extremities: No cyanosis, no peripheral edema Abdomen: Suprapubic tenderness to palpation. Soft, non-distended, no guarding, no pulsatile mass appreciated. Normal bowel sounds : Deferred Skin: 10 cm diameter circular area of erythema to the right buttocks with a small 0.5 cm purulent wound near the center. Well healed midline thoracic surgical incision without erythema or signs of infection. Neuro: A&Ox3, CNII-XII grossly intact, moving all 4 extremities Psych: Appropriate situational affect Medical Decision Making: Clinical Diagnoses: 1. Postoperative infection DDx: 1. Abscess 2. Surgical site infection 3. UTI 4. Sepsis Plan: CMP, CBC, morphine, zofran, nsgy consult Studies and Interpretation Pulse Oximetry Interpretation: Saturation: 97% Oxygen Delivery: Room Air Interpretation: No hypoxia at this time Imaging: XR CHEST 1VW PORTABLE Final Result EXAMINATION: XR CHEST 1VW PORTABLE, 10/30/2021 6:35 PM HISTORY: Z01.818: Preoperative examination COMPARISON: 10/30/2021 FINDINGS/IMPRESSION: There is underpenetration of the x-ray beams. Leads of an electronic device superimposes the thoracic spine. Retrocardiac opacity pulmonary vascular congestion could represent pulmonary mass or congestion with a component of atelectasis and/or airspace disease in the lingula. The cardiac silhouette is obscured. The mediastinal silhouette is mildly enlarged. The visible bony thorax is intact. Report dictated by Alex Bradley MD (radiology director). I, Dr. TYLOR PENNINGTON have personally reviewed and interpreted this examination/study. This report was electronically signed by TYLOR PENNINGTON on 10/31/2021 11:18 AM . Labs: Labs Reviewed CULTURE FLUID+GRAM STAIN - Abnormal; Notable for the following components: Result Value Gram Stain Heavy Polymorphonuclear cells (*) Gram Stain Light Gram-negative bacilli (*) All other components within normal limits CBC W AUTO DIFFERENTIAL - Abnormal; Notable for the following components: WBC 20.5 (*) Neutrophils % 82.3 (*) Lymphocytes % 8.8 (*) Neutrophils Absolute 16.83 (*) Monocytes Absolute 1.52 (*) All other components within normal limits COMPREHENSIVE METABOLIC PANEL - Abnormal; Notable for the following components: Sodium 135 (*) Glucose 217 (*) Albumin 2.8 (*) Bilirubin Total 1.3 (*) Albumin/Globulin Ratio 0.6 (*) All other components within normal limits ERYTHROCYTE SEDIMENTATION RATE - Abnormal; Notable for the following components: Erythrocyte Sedimentation Rate Westergren 107 (*) All other components within normal limits C-REACTIVE PROTEIN - Abnormal; Notable for the following components: C-Reactive Protein 14.2 (*) All other components within normal limits URINALYSIS REFLEX TO MICROSCOPIC NO CULTURE - Abnormal; Notable for the following components: Glucose UA 1+ (*) Blood UA 1+ (*) RBC UA 6-10 (*) All other components within normal limits Narrative: URINALYSIS REFLEX TO MICROSCOPIC NO CULTURE - Abnormal; Notable for the following components: Glucose UA 1+ (*) Blood UA 1+ (*) RBC UA 6-10 (*) WBC UA 6-10 (*) All other components within normal limits Narrative: PT-INR [facility] - Abnormal; Notable for the following components: PT 15.8 (*) All other components within normal limits PT-INR [facility] - Abnormal; Notable for the following components: PT 15.8 (*) All other components within normal limits CBC W AUTO DIFFERENTIAL - Abnormal; Notable for the following components: WBC 20.5 (*) Neutrophils % 93.0 (*) Lymphocytes % 3.8 (*) Monocytes % 2.5 (*) Neutrophils Absolute 19.09 (*) Lymphocyte Absolute 0.77 (*) All other components within normal limits COMPREHENSIVE METABOLIC PANEL - Abnormal; Notable for the following components: Potassium 4.6 (*) Glucose 294 (*) Albumin 2.7 (*) Albumin/Globulin Ratio 0.6 (*) All other components within normal limits CBC W/O DIFFERENTIAL - Abnormal; Notable for the following components: WBC 18.5 (*) All other components within normal limits COMPREHENSIVE METABOLIC PANEL - Abnormal; Notable for the following components: Glucose 291 (*) Albumin 2.6 (*) Albumin/Globulin Ratio 0.5 (*) All other components within normal limits PT-INR [facility] - Abnormal; Notable for the following components: PT 15.7 (*) All other components within normal limits ERYTHROCYTE SEDIMENTATION RATE - Abnormal; Notable for the following components: Erythrocyte Sedimentation Rate Westergren 94 (*) All other components within normal limits C-REACTIVE PROTEIN - Abnormal; Notable for the following components: C-Reactive Protein 14.3 (*) All other components within normal limits GLUCOSE - POINT OF CARE - Abnormal; Notable for the following components: Glucose WB/POC 170 (*) All other components within normal limits GLUCOSE - POINT OF CARE - Abnormal; Notable for the following components: Glucose WB/POC 173 (*) All other components within normal limits GLUCOSE - POINT OF CARE - Abnormal; Notable for the following components: Glucose WB/POC 222 (*) All other components within normal limits GLUCOSE - POINT OF CARE - Abnormal; Notable for the following components: Glucose WB/POC 282 (*) All other components within normal limits GLUCOSE - POINT OF CARE - Abnormal; Notable for the following components: Glucose WB/POC 243 (*) All other components within normal limits GLUCOSE - POINT OF CARE - Abnormal; Notable for the following components: Glucose WB/POC 301 (*) All other components within normal limits GLUCOSE - POINT OF CARE - Abnormal; Notable for the following components: Glucose WB/POC 247 (*) All other components within normal limits CULTURE BLOOD - Normal CULTURE BLOOD - Normal CULTURE ANAEROBE - Normal PTT [facility] - Normal PTT [facility] - Normal PTT [facility] - Normal VANCOMYCIN LEVEL TROUGH - Normal Narrative: See institution protocol. CULTURE URINE CULTURE FUNGUS OTHER+FUNGUS SMEAR URINALYSIS W/MICROSCOPIC NO CULTURE HEMOGLOBIN A1C GLUCOSE SCREEN - POCT (IP) [facility] TYPE + SCREEN PANEL BLOOD TYPE VERIFICATION Procedures: Procedures Interventions: Medications vancomycin (Vancocin) IV dose per pharmacy (has no administration in time range) meropenem (Merrem) 1,000 mg in 0.9% NaCl IV 50 mL IVPB (0 mg Intravenous Stopped 11/01/21 0420) 0.9% NaCl injection 3 mL (3 mL Intracatheter $ Given 11/01/21 0629) And 0.9% NaCl injection 1-10 mL (has no administration in time range) 0.9% NaCl infusion ( Intravenous $ New Bag 10/31/21 1241) amitriptyline (Elavil) tablet 25 mg (25 mg Oral Not Administered 10/31/211943) exemestane (Aromasin) tablet 25 mg (25 mg Oral $ Given 10/31/2153) oxybutynin (Ditropan) tablet 5 mg (5 mg Oral $ Given 10/31/211942) rOPINIRole (Requip) tablet 5 mg (5 mg Oral $ Given 10/31/211943) glucose (Diabetic Use) (Dex4 Glucose) oral liquid [...] mg (has no administration in time range) heparin injection 5,000 Units (5,000 Units Subcutaneous $ Given 11/01/21 06) insulin lispro (HumaLOG;ADMelog) 100 UNIT/ML pen 0-6 Units (2 Units Subcutaneous $ Given 10/31/21 183) acetaminophen (Tylenol) tablet 650 mg (650 mg Oral $ Given 10/31/21 1723) oxyCODONE-acetaminophen (Percocet) 5-325 MG tablet 1 tablet (has no administration in time range) oxyCODONE-acetaminophen (Percocet) 5-325 MG tablet 2 tablet (2 tablets Oral $ Given 11/01/21631) HYDROmorphone (Dilaudid) injection 0.2 mg (0.2 mg Intravenous $ Given 10/31/21 2253) vancomycin (Vancocin) 1,750 mg in 500 mL NaCl IVPB (0 mg Intravenous Stopped 11/01/21 0202) gabapentin (Neurontin) capsule 300 mg (300 mg Oral $ Given 11/01/21 0004) cyclobenzaprine (Flexeril) tablet 10 mg (10 mg Oral $ Given 11/01/21 0632) insulin glargine (Lantus) vial 19 Units (has no administration in time range) morphine injection 4 mg (4 mg Intravenous $ Given 10/30/21 0537) ondansetron (disintegrating) (Zofran ODT) tablet 4 mg (4 mg Oral $ Given 10/30/21 0536) morphine injection 4 mg (4 mg Intravenous $ Given 10/30/21 0758) acetaminophen (Tylenol) tablet 650 mg (650 mg Oral $ Given 10/30/21 0758) ED Course: - I have reviewed triage notes, vitals, available labs and imaging, and assessed the patient. Clinical Impressions as of 11/01/21 06 Preoperative examination S/P insertion of spinal cord stimulator Acute post-operative pain - 4:00 AM Discussed case with NSGY consult team. Recommended basic lab work and they will evaluate the patient. - 5:51 AM Discussed antibiotic management with pharmacy. Will start patient on vancomycin and meropenem. - I discussed the patient and my findings with the oncoming ED team. They will manage the patient. Final ED Diagnosis: 1. S/P insertion of spinal cord stimulator 2. Preoperative examination 3. Acute post-operative pain Disposition: Pending NSGY recommendations. Colten Almendarez MD Emergency Medicine, PGY-1 * Aislinn Voss RN - 10/30/2021 3:09 AM CDT Patient a transfer from [facility] for neurosurgical stimulator complications and wound infection to right buttocks stage 1. * El Jefferson RN - 10/30/2021 3:06 AM CDT Bed: [facility] Expected date: Expected time: Means of arrival: Comments: [id number] [facility] tx 66 F/Infected spinal stimulator/VSS documented in this encounter Plan of Treatment Pending Results Name Type Priority Associated Diagnoses Date /Time IR PICC LINE INSERT Imaging Routine S/P insertion of spinal cord stimulator 11/03/2021 11:00 AM CDT Scheduled Orders Name Type Priority Associated Diagnoses Orde r Schedule EKG 12-LEAD ECG Routine Preoperative examination ONCE for 1 Occurrences starting 10/30/2021 until 10/30/2021 GLUCOSE SCREEN - POCT () [facility] Point of Care Testing STAT ONCE for 1 Occurrences starting 10/30/2021 until 10/30/2021 IR PICC LINE INSERT Imaging Routine S/P insertion of spinal cord stimulator For radiant use only for 1 Occurrences starting 11/02/2021 until 11/02/2021 documented as of this encounter Procedures Procedure Name Priority Date/Time Associated Diagnosis Comments GLUCOSE - POINT OF CARE Routine 11/06/2021 11:34 AM CDT GLUCOSE - POINT OF CARE Routine 11/06/2021 7:40 AM CDT GLUCOSE - POINT OF CARE Routine 11/06/2021 3:09 AM CDT GLUCOSE - POINT OF CARE Routine 11/05/2021 8:10 PM CDT GLUCOSE - POINT OF CARE Routine 11/05/2021 5:00 PM CDT VAS BILATERAL VENOUS DUPLEX LE STAT 11/05/2021 4:27 PM CDT S/P insertion of spinal cord stimulator Chronic anticoagulation IR PICC LINE INSERT Routine 11/05/2021 3 :03 PM CDT S/P insertion of spinal cord stimulator TROPONIN I STAT 11/05/2021 1:50 PM CDT D-DIMER STAT 11/05/2021 1:50 PM CDT EKG 12-LEAD Routine 11/05/2021 1:25 PM CDT S/P insertion of spinal cord stimulator Acute post-operative pain GLUCOSE - POINT OF CARE Routine 11/05/2021 12:08 PM CDT GLUCOSE - POINT OF CARE Routine 11/05/2021 8:10 AM CDT GLUCOSE - POINT OF CARE Routine 11/05/2021 1:40 AM CDT GLUCOSE - POINT OF CARE Routine 11/04/2021 9:11 PM CDT GLUCOSE - POINT OF CARE Routine 11/04/2021 5:02 PM CDT GLUCOSE - POINT OF CARE Routine 11/04/2021 11:29 AM CDT GLUCOSE - POINT OF CARE Routine 11/04/2021 7:56 AM CDT GLUCOSE - POINT OF CARE Routine 11/04/2021 3:24 AM CDT GLUCOSE - POINT OF CARE Routine 11/03/2021 8:30 PM CDT GLUCOSE - POINT OF CARE Routine 11/03/2021 6:09 PM CDT GLUCOSE - POINT OF CARE Routine 11/03/2021 12:13 PM CDT GLUCOSE - POINT OF CARE Routine 11/03/2021 8:17 AM CDT GLUCOSE - POINT OF CARE Routine 11/03/2021 2:07 AM CDT GLUCOSE - POINT OF CARE Routine 11/02/2021 7:45 PM CDT GLUCOSE - POINT OF CARE Routine 11/02/2021 5:01 PM CDT GLUCOSE - POINT OF CARE Routine 11/02/2021 12:03 PM CDT GLUCOSE - POINT OF CARE Routine 11/02/2021 7:55 AM CDT GLUCOSE - POINT OF CARE Routine 11/02/2021 2:02 AM CDT GLUCOSE - POINT OF CARE Routine 11/01/2021 8:35 PM CDT GLUCOSE - POINT OF CARE Routine 11/01/2021 5:49 PM CDT CARDIAC EKG ORDER 11/01/2021 2:2 8 PM CDT GLUCOSE - POINT OF CARE Routine 11/01/2021 12:34 PM CDT GLUCOSE - POINT OF CARE Routine 11/01/2021 7:38 AM CDT OT EVAL AND TREAT Routine 11/01/2021 6:5 1 AM CDT GLUCOSE - POINT OF CARE Routine 11/01/2021 2:06 AM CDT C-REACTIVE PROTEIN AM Draw 11/01/2021 1: 22 AM CDT ERYTHROCYTE SEDIMENTATION RATE AM Draw 11/01/2021 1:21 AM CDT VANCOMYCIN LEVEL TROUGH Timed 10/31/2021 9:53 PM CDT GLUCOSE - POINT OF CARE Routine 10/31/2021 7:46 PM CDT GLUCOSE - POINT OF CARE Routine 10/31/2021 5:04 PM CDT GLUCOSE - POINT OF CARE Routine 10/31/2021 12:59 PM CDT PTT SLH AM Draw 10/31/2021 11:55 AM CDT PT-INR SLH AM Draw 10/31/2021 11:55 AM CDT HEMOGLOBIN A1C Routine 10/31/2021 11:55 AM CDT CBC W/O DIFFERENTIAL AM Draw 10/31/2021 11:55 AM CDT COMPREHENSIVE METABOLIC PANEL AM Draw 10/31/2021 11:55 AM CDT OT EVAL AND TREAT Routine 10/31/2021 9:5 2 AM CDT GLUCOSE - POINT OF CARE Routine 10/31/2021 8:09 AM CDT PTT SLH STAT 10/30/2021 9:00 PM CDT PT-INR SLH STAT 10/30/2021 9:00 PM CDT CBC W AUTO DIFFERENTIAL STAT 10/30/2021 9:00 PM CDT COMPREHENSIVE METABOLIC PANEL STAT 10/30/2021 9:00 PM CDT XR CHEST 1VW PORTABLE STAT 10/30/2021 6:34 PM CDT Preoperative examination GLUCOSE - POINT OF CARE Routine 10/30/2021 5:30 PM CDT CULTURE FUNGUS OTHER+FUNGUS SMEAR STAT 10/30/2021 4:51 PM CDT S/P insertion of spinal cord stimulator CULTURE FLUID+GRAM STAIN STAT 10/30/2021 4:51 PM CDT S/P insertion of spinal cord stimulator CULTURE ANAEROBE STAT 10/30/2021 4:51 PM CDT S/P insertion of spinal cord stimulator REMOVAL HARDWARE SPINAL (POSTERIOR) Level 4 10/30/2021 4:26 PM CDT Infection Special Needs PRONELEVEL 4 @ 1115 DL GLUCOSE - POINT OF CARE Routine 10/30/2021 2:48 PM CDT PTT SLH STAT 10/30/2021 1:46 PM CDT PT-INR [facility] STAT 10/30/2021 1:46 PM CDT URINALYSIS REFLEX TO MICROSCOPIC NO CULTURE STAT 10/30/2021 1:46 PM CDT TYPE + SCREEN PANEL STAT 10/30/2021 1 :46 PM CDT EKG 12-LEAD Routine 10/30/2021 12:00 PM CDT Preoperative examination BLOOD TYPE VERIFICATION STAT 10/30/2021 11:31 AM CDT URINALYSIS REFLEX TO MICROSCOPIC NO CULTURE STAT 10/30/2021 8:03 AM CDT CULTURE URINE STAT 10/30/2021 8:03 AM CDT CULTURE BLOOD STAT 10/30/2021 6:41 AM CDT CULTURE BLOOD STAT 10/30/2021 6:40 AM CDT C-REACTIVE PROTEIN MALDONADO 10/30/2021 5: 33 AM CDT ERYTHROCYTE SEDIMENTATION RATE STAT 10/30/2021 5:33 AM CDT CBC W AUTO DIFFERENTIAL STAT 10/30/2021 5:33 AM CDT COMPREHENSIVE METABOLIC PANEL STAT 10/30/2021 5:33 AM CDT documented in this encounter Results * (ABNORMAL) GLUCOSE - POINT OF CARE (11/06/2021 11:34 AM CDT) Glucose WB/POC 135(H) 70 - 115 mg/dL 11/06/2021 11:39 AM CDT [facility] Specimen Type Arterial 11/06/2021 11:39 AM CDT [facility] Blood BLOOD SPECIMEN / Unknown 11/06/2021 11:34 AM CDT 11/06/2021 11:38 AM CDT Maxi Gregg MD LAB - POINT [facility] ARE ORDERABLES Performing Organization Address [facility]/State/ZIP Co de Phone Number [facility] [address] [place] [address], [facility] [phone] * (ABNORMAL) GLUCOSE - POINT OF CARE (11/06/2021 7:40 AM CDT) Glucose WB/POC 152(H) 70 - 115 mg/dL 11/06/2021 7:45 AM CDT [facility] Specimen Type Cap Fingerstick 2021 7:45 AM CDT [facility] Blood BLOOD SPECIMEN / Unknown 11/06/2021 7:40 AM CDT 11/06/2021 7:45 AM CDT Maxi Gregg MD LAB - POINT OF ARE ORDERABLES [facility] [address] [place] [address], [place] [phone] * (ABNORMAL) GLUCOSE - POINT OF CARE (11/06/2021 3:09 AM CDT) Glucose WB/POC 172(H) 70 - 115 mg/dL 11/06/2021 3:13 AM CDT [facility] Specimen Type Cap Fingerstick 2021 3:13 AM CDT [facility] Blood BLOOD SPECIMEN / Unknown 11/06/2021 3:09 AM CDT 11/06/2021 3:13 AM CDT Maxi Gregg MD LAB - POINT OF ARE ORDERABLES Performing Organization Address City/[facility]/ZIP Co de Phone Number [address] [address], [place] [phone] * (ABNORMAL) GLUCOSE - POINT OF CARE (11/05/2021 8:10 PM CDT) Glucose WB/POC 171(H) 70 - 115 mg/dL 11/05/2021 8:15 PM CDT [facility] Specimen Type Cap Fingerstick 2021 8:15 PM CDT [facility] Blood BLOOD SPECIMEN / Unknown 11/05/2021 8:10 PM CDT 11/05/2021 8:14 PM CDT Maxi Gregg MD LAB - POINT OF ARE ORDERABLES [address] [address], [place] [phone] * (ABNORMAL) GLUCOSE - POINT OF CARE (11/05/2021 5:00 PM CDT) Glucose WB/POC 180(H) 70 - 115 mg/dL 11/05/2021 5:05 PM CDT [facility] Specimen Type Cap Fingerstick 2021 5:05 PM CDT [facility] Blood BLOOD SPECIMEN / Unknown 11/05/2021 5:00 PM CDT 11/05/2021 5:05 PM CDT Maxi Gregg MD LAB - POINT OF C ARE ORDERABLES [address] [address], [facility] [phone] * VAS BILATERAL VENOUS DUPLEX LE (11/05/2021 4:27 PM CDT) Anatomical Region Laterality Modality Lower Extremity Intravascular Ul trasound 11/05/2021 4:06 PM CDT Narrative Procedure Note Arden De eJsus MD - 11/06/2021 Maxi Gregg MD VASCULAR LAB ORD ERABLES * IR PICC LINE INSERT (11/05/2021 3:03 PM CDT) Anatomical Region Laterality Modality Chest, Upper Extremity X-Ray Ang iography 11/05/2021 3:02 PM CDT Impressions 11/12/2021 12:02 PM CDT Impression: Successful placement of 39 cm 5 Fijian dual-lumen power PICC via the right basilic vein with the tip at the cavo-atrial junction. Note: The catheter can be used now. Dr. Fitzgerald was present and performed/supervised the entire procedure. Dictated by Jovi Goode MD (radiology director) This report was approved ??by Jovi Goode ?? on 11/05/2021 3:06 PM . I, Dr. BAUDILIO FITZGERALD have personally reviewed and interpreted this examination/study. This report was electronically signed by BAUDILIO FITZGERALD ??on 11/12/2021 12:02 PM . 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 Operators: 1.Dr. Baudilio Fitzegrald, Attending Physician 2.Dr. Jovi Goode, Resident Physician 3. 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 Operators: 1.Dr. Baudilio Fitzgerald, Attending Physician 2.Dr. Jovi Goode, Resident Physician 3. Cesar Hill, MS4 Anesthesia: 1.Local anesthesia - 10 ml [...] Impression: Successful placement of 39 cm 5 Fijian dual-lumen power PICC via the right basilic vein with the tip at the cavo-atrial junction. Note: The catheter can be used now. Dr. Fitzgerald was present and performed/supervised the entireprocedure. Dictated by Jovi Goode MD (radiology director) This report was approved by Jovi Goode on 11/05/2021 3:06 PM . I, Dr. BAUDILIO FITZGERALD have personally reviewed and interpreted this examination/study. This report was electronically signed by BAUDILIO FITZGERALD on11/12/2021 12:02 PM . Maxi Gregg MD IR ORDERABLES * TROPONIN I (11/05/2021 1:50 PM CDT) Troponin I <0.010 <0.032 ng/mL 11/05/2021 2:34 PM CDT [facility] Blood BLOOD SPECIMEN / Unknown Lab Venipuncture / Unknown 11/05/2021 1:50 PM CDT 11/05/2021 1:59 PM CDT Maxi Gregg MD LAB - CHEMISTRY ORDERABLES [facility] [address] [place] [address], [facility] [phone] * (ABNORMAL) D-DIMER (11/05/2021 1:50 PM CDT) D-Dimer Quantitative 1.28(H) <=0.50 mcg/mL FEU 11/05/2021 2:26 PM CDT [facility] Comment: In the absence of clinical [...] - COAGULATIO N ORDERABLES Performing Organization Address [facility]/State/ZIP Co de Phone Number [facility] [address] [place] [address], [facility] [phone] * EKG 12-LEAD (11/05/2021 1:25 PM CDT) Ventricular Rate 87 BPM [facility] Atrial Rate 87 BPM [facility] P-R Interval 142 ms [facility] QRS Duration ms 80 ms [facility] Q-T Interval ms 362 ms [facility] QTC Calculation (Bezet) 435 ms [facility] Calculated P [place] 7 degrees [facility] Calculated R [place] 1 degrees [facility] Calculated T [place] 59 degrees [facility] Interpretation EKG NORMAL SINUS RHYTHM NORMAL ECG WHEN COMPARED WITH ECG OF 30-oct-2021 NO SIGNIFICANT CHANGE WAS FOUND Confirmed by MD RODRIGEZ STEPHANIE ([id number]) on 11/05/2021 4:06:44 PM [facility] 11/05/2021 1:25 PM CDT 11/05/2021 4:06 PM CDT Maxi Gregg MD ECG ORDERABLES [facility] * (ABNORMAL) GLUCOSE - POINT OF CARE (11/05/2021 12:08 PM CDT) Glucose WB/POC 171(H) 70 - 115 mg/dL 11/05/2021 11:05 PM CDT [facility] Specimen Type Cap Fingerstick 2021 11:05 PM CDT [facility] Blood BLOOD SPECIMEN / Unknown 11/05/2021 12:08 PM CDT 11/05/2021 11:05 PM CDT Maxi Gregg MD LAB - POINT OF C ARE ORDERABLES [facility] [address] [place] [address], [facility] [phone] * (ABNORMAL) GLUCOSE - POINT OF CARE (11/05/2021 8:10 AM CDT) Glucose WB/POC 154(H) 70 - 115 mg/dL 11/05/2021 8:11 AM CDT [facility] Specimen Type Cap Fingerstick 2021 8:11 AM CDT [facility] Blood BLOOD SPECIMEN / Unknown 11/05/2021 8:10 AM CDT 11/05/2021 8:10 AM CDT Maxi Gregg MD LAB - POINT OF ARE ORDERABLES [facility] [address] [place] [address], [place] [phone] * (ABNORMAL) GLUCOSE - POINT OF CARE (11/05/2021 1:40 AM CDT) Glucose WB/POC 146(H) 70 - 115 mg/dL 11/05/2021 1:41 AM CDT [facility] Specimen Type Cap Fingerstick 2021 1:41 AM CDT [facility] Blood BLOOD SPECIMEN / Unknown 11/05/2021 1:40 AM CDT 11/05/2021 1:41 AM CDT Maxi Gregg MD LAB - POINT OF ARE ORDERABLES Performing Organization Address City/[facility]/ZIP Co de Phone Number [address] [address], [place] [phone] * (ABNORMAL) GLUCOSE - POINT OF CARE (11/04/2021 9:11 PM CDT) Glucose WB/POC 180(H) 70 - 115 mg/dL 11/04/2021 9:12 PM CDT [facility] Specimen Type Cap Fingerstick 2021 9:12 PM CDT [facility] Blood BLOOD SPECIMEN / Unknown 11/04/2021 9:11 PM CDT 11/04/2021 9:12 PM CDT Maxi Gregg MD LAB - POINT OF ARE ORDERABLES [address] [address], [place] [phone] * (ABNORMAL) GLUCOSE - POINT OF CARE (11/04/2021 5:02 PM CDT) Glucose WB/POC 132(H) 70 - 115 mg/dL 11/04/2021 5:06 PM CDT [facility] Specimen Type Arterial 11/04/2021 5:06 PM CDT [facility] Blood BLOOD SPECIMEN / Unknown 11/04/2021 5:02 PM CDT 11/04/2021 5:06 PM CDT Maxi Gregg MD LAB - POINT OF ARE ORDERABLES [address] [address], [place] [phone] * (ABNORMAL) GLUCOSE - POINT OF CARE (11/04/2021 11:29 AM CDT) Glucose WB/POC 192(H) 70 - 115 mg/dL 11/04/2021 11:34 AM CDT [facility] Specimen Type Cap Fingerstick 2021 11:34 AM CDT [facility] Blood BLOOD SPECIMEN / Unknown 11/04/2021 11:29 AM CDT 11/04/2021 11:34 AM CDT Maxi Gregg MD LAB - POINT OF ARE ORDERABLES [address] [address], [place] [phone] * (ABNORMAL) GLUCOSE - POINT OF CARE (11/04/2021 7:56 AM CDT) Glucose WB/POC 178(H) 70 - 115 mg/dL 11/04/2021 8:01 AM CDT [facility] Specimen Type Arterial 11/04/2021 8:01 AM CDT [facility] Blood BLOOD SPECIMEN / Unknown 11/04/2021 7:56 AM CDT 11/04/2021 8:01 AM CDT Maxi Gregg MD LAB - POINT OF C ARE ORDERABLES [address] [address], [place] [phone] * (ABNORMAL) GLUCOSE - POINT OF CARE (11/04/2021 3:24 AM CDT) Glucose WB/POC 182(H) 70 - 115 mg/dL 11/04/2021 3:25 AM CDT [facility] Specimen Type Arterial 11/04/2021 3:25 AM CDT [facility] Blood BLOOD SPECIMEN / Unknown 11/04/2021 3:24 AM CDT 11/04/2021 3:25 AM CDT Maxi Gregg MD LAB - POINT OF ARE ORDERABLES Performing Organization Address City/[facility]/ZIP Co de Phone Number [address] [address], [place] [phone] * (ABNORMAL) GLUCOSE - POINT OF CARE (11/03/2021 8:30 PM CDT) Glucose WB/POC 209(H) 70 - 115 mg/dL 11/03/2021 8:31 PM CDT [facility] Specimen Type Arterial 11/03/2021 8:31 PM CDT [facility] Blood BLOOD SPECIMEN / Unknown 11/03/2021 8:30 PM CDT 11/03/2021 8:30 PM CDT Maxi Gregg MD LAB - POINT OF ARE ORDERABLES [address] [address], [place] [phone] * (ABNORMAL) GLUCOSE - POINT OF CARE (11/03/2021 6:09 PM CDT) Glucose WB/POC 153(H) 70 - 115 mg/dL 11/03/2021 6:14 PM CDT [facility] Specimen Type Cap Fingerstick 2021 6:14 PM CDT [facility] Blood BLOOD SPECIMEN / Unknown 11/03/2021 6:09 PM CDT 11/03/2021 6:14 PM CDT Maxi Gregg MD LAB - POINT OF ARE ORDERABLES [address] [address], [place] [phone] * (ABNORMAL) GLUCOSE - POINT OF CARE (11/03/2021 12:13 PM CDT) Glucose WB/POC 185(H) 70 - 115 mg/dL 11/03/2021 12:19 PM CDT [facility] Specimen Type Cap Fingerstick 2021 12:19 PM CDT [facility] Blood BLOOD SPECIMEN / Unknown 11/03/2021 12:13 PM CDT 11/03/2021 12:18 PM CDT Maxi Gregg MD LAB - POINT OF C ARE ORDERABLES [address] [address], [place] [phone] * (ABNORMAL) GLUCOSE - POINT OF CARE (11/03/2021 8:17 AM CDT) Glucose WB/POC 154(H) 70 - 115 mg/dL 11/03/2021 8:21 AM CDT [facility] Specimen Type Cap Fingerstick 2021 8:21 AM CDT [facility] Blood BLOOD SPECIMEN / Unknown 11/03/2021 8:17 AM CDT 11/03/2021 8:21 AM CDT Maxi Gregg MD LAB - POINT OF C ARE ORDERABLES [address] [place] [address], [place] [phone] * (ABNORMAL) GLUCOSE - POINT OF CARE (11/03/2021 2:07 AM CDT) Glucose WB/POC 198(H) 70 - 115 mg/dL 11/03/2021 6:20 AM CDT [facility] Specimen Type Cap Fingerstick 2021 6:20 AM CDT [facility] Blood BLOOD SPECIMEN / Unknown 11/03/2021 2:07 AM CDT 11/03/2021 6:20 AM CDT Maxi Gregg MD LAB - POINT OF ARE ORDERABLES [address] [address], [place] [phone] * (ABNORMAL) GLUCOSE - POINT OF CARE (11/02/2021 7:45 PM CDT) Glucose WB/POC 189(H) 70 - 115 mg/dL 11/02/2021 7:49 PM CDT [facility] Specimen Type Cap Fingerstick 2021 7:49 PM CDT [facility] Blood BLOOD SPECIMEN / Unknown 11/02/2021 7:45 PM CDT 11/02/2021 7:49 PM CDT Maxi Gregg MD LAB - POINT OF ARE ORDERABLES [address] [address], [place] [phone] * (ABNORMAL) GLUCOSE - POINT OF CARE (11/02/2021 5:01 PM CDT) Glucose WB/POC 170(H) 70 - 115 mg/dL 11/02/2021 5:06 PM CDT [facility] Specimen Type Cap Fingerstick 2021 5:06 PM CDT [facility] Blood BLOOD SPECIMEN / Unknown 11/02/2021 5:01 PM CDT 11/02/2021 5:06 PM CDT Maxi Gregg MD LAB - POINT OF ARE ORDERABLES [address] [address], [place] [phone] * (ABNORMAL) GLUCOSE - POINT OF CARE (11/02/2021 12:03 PM CDT) Glucose WB/POC 187(H) 70 - 115 mg/dL 11/02/2021 5:06 PM CDT [facility] Specimen Type Cap Fingerstick 2021 5:06 PM CDT [facility] Blood BLOOD SPECIMEN / Unknown 11/02/2021 12:03 PM CDT 11/02/2021 5:06 PM CDT Maxi Gregg MD LAB - POINT OF ARE ORDERABLES Performing Organization Address City/[facility]/ZIP Co de Phone Number [address] [address], [place] [phone] * (ABNORMAL) GLUCOSE - POINT OF CARE (11/02/2021 7:55 AM CDT) Glucose WB/POC 179(H) 70 - 115 mg/dL 11/02/2021 8:00 AM CDT [facility] Specimen Type Arterial 11/02/2021 8:00 AM CDT [facility] Blood BLOOD SPECIMEN / Unknown 11/02/2021 7:55 AM CDT 11/02/2021 8:00 AM CDT Maxi Gregg MD LAB - POINT OF ARE ORDERABLES [address] [address], [place] [phone] * (ABNORMAL) GLUCOSE - POINT OF CARE (11/02/2021 2:02 AM CDT) Glucose WB/POC 199(H) 70 - 115 mg/dL 11/02/2021 2:07 AM CDT [facility] Specimen Type Cap Fingerstick 2021 2:07 AM CDT [facility] Blood BLOOD SPECIMEN / Unknown 11/02/2021 2:02 AM CDT 11/02/2021 2:07 AM CDT Maxi Gregg MD LAB - POINT [facility] ARE ORDERABLES [facility] [address] [place] [address], [place] [phone] * (ABNORMAL) GLUCOSE - POINT OF CARE (11/01/2021 8:35 PM CDT) Glucose WB/POC 259(H) 70 - 115 mg/dL 11/01/2021 8:40 PM CDT [facility] Specimen Type Cap Fingerstick 2021 8:40 PM CDT [facility] Blood BLOOD SPECIMEN / Unknown 11/01/2021 8:35 PM CDT 11/01/2021 8:40 PM CDT Maxi Gregg MD LAB - POINT OF ARE ORDERABLES [address] [address], [place] [phone] * (ABNORMAL) GLUCOSE - POINT OF CARE (11/01/2021 5:49 PM CDT) Glucose WB/POC 199(H) 70 - 115 mg/dL 11/01/2021 5:54 PM CDT [facility] Specimen Type Cap Fingerstick 2021 5:54 PM CDT [facility] Blood BLOOD SPECIMEN / Unknown 11/01/2021 5:49 PM CDT 11/01/2021 5:54 PM CDT Maxi Gregg MD LAB - POINT OF C ARE ORDERABLES [address] [address], [place] [phone] * CARDIAC EKG ORDER (11/01/2021 2:28 PM CDT) Narrative 11/01/2021 2:28 PM CDT Ordered by an unspecified provider. Scanned Document C[facility] ORD ERABLES * (ABNORMAL) GLUCOSE - POINT OF CARE (11/01/2021 12:34 PM CDT) Glucose WB/POC 207(H) 70 - 115 mg/dL 11/01/2021 12:39 PM CDT [facility] Specimen Type Arterial 11/01/2021 12:39 PM CDT [facility] Blood BLOOD SPECIMEN / Unknown 11/01/2021 12:34 PM CDT 11/01/2021 12:39 PM CDT Maxi Gregg MD LAB - POINT OF C ARE ORDERABLES [address] [address], [place] [phone] * (ABNORMAL) GLUCOSE - POINT OF CARE (11/01/2021 7:38 AM CDT) Glucose WB/POC 193(H) 70 - 115 mg/dL 11/01/2021 7:44 AM CDT [facility] Specimen Type Arterial 11/01/2021 7:44 AM CDT [facility] Blood BLOOD SPECIMEN / Unknown 11/01/2021 7:38 AM CDT 11/01/2021 7:44 AM CDT Maxi Gregg MD LAB - POINT OF C ARE ORDERABLES [address] [address], [place] [phone] * (ABNORMAL) GLUCOSE - POINT OF CARE (11/01/2021 2:06 AM CDT) Glucose WB/POC 247(H) 70 - 115 mg/dL 11/01/2021 2:11 AM CDT [facility] Specimen Type Cap Fingerstick 2021 2:11 AM CDT [facility] Blood BLOOD SPECIMEN / Unknown 11/01/2021 2:06 AM CDT 11/01/2021 2:11 AM CDT Maxi Gregg MD LAB - POINT OF C ARE ORDERABLES [address] [address], [place] [phone] * (ABNORMAL) C-REACTIVE PROTEIN (11/01/2021 1:22 AM CDT) C-Reactive Protein 14.3(H) <=0.5 mg/dL 11/01/2021 2:27 AM CDT [facility] Blood BLOOD SPECIMEN / Unknown Lab Venipuncture / Unknown 11/01/2021 1:22 AM CDT 11/01/2021 1:41 AM CDT Maxi Gregg MD LAB - CHEMISTRY ORDERABLES [address] [address], [place] [phone] * (ABNORMAL) ERYTHROCYTE SEDIMENTATION RATE (11/01/2021 1:21 AM CDT) Erythrocyte Sedimentation Rate Westergren 94(H) 0 - 30 MM/HR 11/01/2021 2:24 AM CDT [facility] Blood BLOOD SPECIMEN / Unknown Lab Venipuncture / Unknown 11/01/2021 1:21 AM CDT 11/01/2021 1:47 AM CDT Maxi Gregg MD LAB - HEMATOLOGY ORDERABLES [facility] [address] [place] [address], [place] [phone] * VANCOMYCIN LEVEL TROUGH (10/31/2021 9:53 PM CDT) Vancomycin Trough 13.6 10.0 - 20.0 ug/mL 10/31/2021 10:20 PM CDT [facility] Blood BLOOD SPECIMEN / Unknown Venipuncture / Unknown 10/31/2021 9:53 PM CDT 10/31/2021 9:56 PM CDT Narrative [facility] - 10/31/2021 10:20 PM CDT See institution protocol. Gil Hill MD LAB - CHEMISTR Y ORDERABLES [facility] [address] [place] [address], [place] [phone] * (ABNORMAL) GLUCOSE - POINT OF CARE (10/31/2021 7:46 PM CDT) Glucose WB/POC 301(H) 70 - 115 mg/dL 10/31/2021 7:47 PM CDT [facility] Specimen Type Arterial 10/31/2021 7:47 PM CDT [facility] Blood BLOOD SPECIMEN / Unknown 10/31/2021 7:46 PM CDT 10/31/2021 7:47 PM CDT Maxi Gregg MD LAB - POINT OF C ARE ORDERABLES [facility] [address] [place] [address], [place] [phone] * (ABNORMAL) GLUCOSE - POINT OF CARE (10/31/2021 5:04 PM CDT) Glucose WB/POC 243(H) 70 - 115 mg/dL 10/31/2021 5:09 PM CDT [facility] Specimen Type Cap Fingerstick 2021 5:09 PM CDT [facility] Blood BLOOD SPECIMEN / Unknown 10/31/2021 5:04 PM CDT 10/31/2021 5:09 PM CDT Maxi Gregg MD LAB - POINT OF ARE ORDERABLES [facility] [address] [place] [address], [place] [phone] * (ABNORMAL) GLUCOSE - POINT OF CARE (10/31/2021 12:59 PM CDT) Glucose WB/POC 282(H) 70 - 115 mg/dL 10/31/2021 1:04 PM CDT [facility] Specimen Type Cap Fingerstick 2021 1:04 PM CDT [facility] Blood BLOOD SPECIMEN / Unknown 10/31/2021 12:59 PM CDT 10/31/2021 1:04 PM CDT Maxi Gregg MD LAB - POINT OF ARE ORDERABLES Performing Organization Address City/[facility]/ZIP Co de Phone Number [facility] [address] [place] [address], [place] [phone] * PTT [facility] (10/31/2021 11:55 AM CDT) APTT 34.1 23.0 - 38.4 Seconds 10/31/2021 1:41 PM CDT [facility] Comment:Suggested therapeuti c range for full dose I.V. unfractionated heparin therapy for venous thromboembolism is 71 to 109 seconds. Blood BLOOD SPECIMEN / Unknown Lab Venipuncture / Unknown 10/31/2021 11:55 AM CDT 10/31/2021 1:09 PM CDT Gil Hill MD LAB - COAGULAT ION ORDERABLES Performing Organization Address City/[facility]/ZIP Co de Phone Number [facility] [address] [place] [address], [place] [phone] * (ABNORMAL) PT-INR [facility] (10/31/2021 11:55 AM CDT) PT 15.7(H) 12.1 - 14.8 Seconds 10/31/2021 1:40 PM CDT [facility] INR 1.3 See Comment 10/31/2021 1:40 PM [facility] Comment:The suggested therap eutic range for standard coumadin (warfarin) therapy is an INR of 2.0-3.0. For high-risk patients (Mechanical Mitral Valve Prosthesis, etc.), the suggested prophylactic therapeutic range is an INR of 2.5-3.5. Blood BLOOD SPECIMEN / Unknown Lab Venipuncture / Unknown 10/31/2021 11:55 AM CDT 10/31/2021 1:09 PM CDT Gil Hill MD LAB - COAGULAT ION ORDERABLES [facility] [address] [place] [address], [facility] [phone] * (ABNORMAL) COMPREHENSIVE METABOLIC PANEL (10/31/2021 11:55 AM CDT) Pathologist [facility] BUN 15 7 - 26 mg/dL 10/31/2021 1:35 PM [facility] Creatinine 0.66 0.56 - 0.96 mg/dL 10/31/2021 1:35 PM [facility] Sodium 137 136 - 145 mmol/L 10/31/2021 1:35 PM [facility] Potassium 4.1 3.5 - 4.5 mmol/L 10/31/2021 1:35 PM [facility] Chloride 103 98 - 107 mmol/L 10/31/2021 1:35 PM [facility] CO2 28 22 - 29 mmol/L 10/31/2021 1:35 PM [facility] Glucose 291(H) 70 - 115 mg/dL 10/31/2021 1:35 PM [facility] Calcium 9.1 8.4 - 10.2 mg/dL 10/31/2021 1:35 PM [facility] Protein Total 7.4 6.0 - 8.3 g/dL 10/31/2021 1:35 PM [facility] Albumin 2.6(L) 3.4 - 5.0 g/dL 10/31/2021 1:35 PM [facility] Bilirubin Total 0.5 0.2 - 1.2 mg/dL 10/31/2021 1:35 PM [facility] Alkaline Phosphatase 90 40 - 150 U/L 10/31/2021 1:35 PM [facility] ALT 14 5 - 55 U/L 10/31/2021 1:35 PM [facility] AST 8 5 - 34 U/L 10/31/2021 1:35 PM [facility] Anion Gap 10 8 - 18 10/31/2021 1:35 PM [facility] BUN/Creatinine Ratio 23 7 - 23 10/31/2021 1:35 PM [facility] Osmolality Calculated 296 270 - 300 mOsm/kg 10/31/2021 1:35 PM [facility] Albumin/Globulin Ratio 0.5(L) 1.1 - 2.3 10/31/2021 1:35 PM [facility] eGFR by CKD-EPI >90 >=90 mL/min/1.7 3 m2 10/31/2021 1:35 PM [facility] Blood BLOOD SPECIMEN / Unknown Lab Venipuncture / Unknown 10/31/2021 11:55 AM CDT 10/31/2021 1:07 PM [facility] Gil Hill MD LAB - CHEMISTR Y ORDERABLES [facility] [address] [place] [phone], [facility] [phone] * (ABNORMAL) CBC W/O DIFFERENTIAL (10/31/2021 11:55 AM T) WBC 18.5(H) 3.5 - 10.5 10? 3 /uL 10/31/2021 1:14 PM [facility] RBC 4.19 3.80 - 5.20 10? 6 /uL 10/31/2021 1:14 PM [facility] Hemoglobin 12.2 12.0 - 15.6 g/dL 10/31/2021 1:14 PM [facility] Hematocrit 38.2 35.0 - 45.0 % 10/31/2021 1:14 PM [facility] MCV 91.2 80.7 - 98.3 fL 10/31/2021 1:14 PM [facility] MCH 29.1 26.7 - 34.0 pg 10/31/2021 1:14 PM [facility] MCHC 31.9 30.8 - 35.9 g/dL 10/31/2021 1:14 PM [facility] Platelet Count 283 150 - 400 10? 3 /uL 10/31/2021 1:14 PM [facility] RDW-SD 46.6 36.0 - 50.0 fL 10/31/2021 1:14 PM [facility] RDW-CV 13.8 11.2 - 14.8 % 10/31/2021 1:14 PM [facility] MPV 10.2 9.4 - 12.9 fL 10/31/2021 1:14 PM [facility] nRBC Absolute 0.00 0 10? 3 /uL 10/31/2021 1:14 PM [facility] nRBC Auto 0.0 0 /100 WBC 10/31/2021 1:14 PM [facility] Blood BLOOD SPECIMEN / Unknown Lab Venipuncture / Unknown 10/31/2021 11:55 AM CDT 10/31/2021 1:06 PM T Gil Hill MD LAB - HEMATOLO GY ORDERABLES [facility] [address] [place] [phone], [facility] [phone] * (ABNORMAL) HEMOGLOBIN A1C (10/31/2021 11:55 AM CDT) Hemoglobin A1c 7.8(H) <=5.6 % 11/01/2021 11:06 AM [facility] Estimated Average Glucose 177 mg/dL 11/01/2021 11:06 AM CDT [facility] Comment: HbA1c Interpretation: Normal : < 5.7% Pre-diabetes: 5.7-6.4% Diabetes: Equal to or greater than 6.5% Test results diagnostic of diabetes should be repeated for confirmation. Treatment target values recommended by ADA and other clinical organizations should be used to evaluate metabolic control in patients. Reference: [place] [employer], Standards of Care in Diabetes -2020 In patients 70 years and older consider HbA1c target range of 7.0-7.5% (Reference: Travis Storey et al. JAMDA. 2012) The Sebia assay for the measurement of HbA1c is a National Glycohemoglobin Standardization Program (NGSP) certified method. Blood BLOOD SPECIMEN / Unknown Lab Venipuncture / Unknown 10/31/2021 11:55 AM CDT 10/31/2021 1:06 PM CDT Gil Hill MD LAB - CHEMISTR Y ORDERABLES Performing Organization Address City/[facility]/ZIP Co de Phone Number [address] [address], [place] [phone] * (ABNORMAL) GLUCOSE - POINT OF CARE (10/31/2021 8:09 AM CDT) [facility] Glucose WB/POC 222(H) 70 - 115 mg/dL 10/31/2021 8:13 AM CDT [facility] Specimen Type Arterial 10/31/2021 8:13 AM CDT [facility] Blood BLOOD SPECIMEN / Unknown 10/31/2021 8:09 AM CDT 10/31/2021 8:13 AM CDT Maxi Gregg MD LAB - POINT OF C ARE ORDERABLES [address] [address], [place] [phone] * (ABNORMAL) COMPREHENSIVE METABOLIC PANEL (10/30/2021 9:00 PM CDT) Pathologist [facility] BUN 13 7 - 26 mg/dL 10/30/2021 9:51 PM [facility] Creatinine 0.68 0.56 - 0.96 mg/dL 10/30/2021 9:51 PM [facility] Sodium 137 136 - 145 mmol/L 10/30/2021 9:51 PM [facility] Potassium 4.6(H) 3.5 - 4.5 mmol/L 10/30/2021 9:51 PM [facility] Chloride 102 98 - 107 mmol/L 10/30/2021 9:51 PM [facility] CO2 25 22 - 29 mmol/L 10/30/2021 9:51 PM [facility] Glucose 294(H) 70 - 115 mg/dL 10/30/2021 9:51 PM [facility] Calcium 9.0 8.4 - 10.2 mg/dL 10/30/2021 9:51 PM [facility] Protein Total 7.2 6.0 - 8.3 g/dL 10/30/2021 9:51 PM [facility] Albumin 2.7(L) 3.4 - 5.0 g/dL 10/30/2021 9:51 PM [facility] Bilirubin Total 1.1 0.2 - 1.2 mg/dL 10/30/2021 9:51 PM [facility] Alkaline Phosphatase 74 40 - 150 U/L 10/30/2021 9:51 PM [facility] ALT 14 5 - 55 U/L 10/30/2021 9:51 PM [facility] AST 9 5 - 34 U/L 10/30/2021 9:51 PM [facility] Anion Gap 15 8 - 18 10/30/2021 9:51 PM [facility] BUN/Creatinine Ratio 19 7 - 23 10/30/2021 9:51 PM [facility] Osmolality Calculated 295 270 - 300 mOsm/kg 10/30/2021 9:51 PM [facility] Albumin/Globulin Ratio 0.6(L) 1.1 - 2.3 10/30/2021 9:51 PM [facility] eGFR by CKD-EPI >90 >=90 mL/min/1.7 3 m2 10/30/2021 9:51 PM [facility] Blood BLOOD SPECIMEN / Unknown Lab Venipuncture / Unknown 10/30/2021 9:00 PM CDT 10/30/2021 9:22 PM CDT Gil Hill MD LAB - CHEMISTR Y ORDERABLES Performing Organization Address [facility]/State/ZIP Co de Phone Number [facility] [address] [place] [phone], [facility] [phone] * (ABNORMAL) CBC W AUTO DIFFERENTIAL (10/30/2021 9:00 PM CDT) WBC 20.5(H) 3.5 - 10.5 10? 3 /uL 10/30/2021 9:28 PM [facility] RBC 4.07 3.80 - 5.20 10? 6 /uL 10/30/2021 9:28 PM [facility] Hemoglobin 12.0 12.0 - 15.6 g/dL 10/30/2021 9:28 PM [facility] Hematocrit 37.2 35.0 - 45.0 % 10/30/2021 9:28 PM [facility] MCV 91.4 80.7 - 98.3 fL 10/30/2021 9:28 PM [facility] MCH 29.5 26.7 - 34.0 pg 10/30/2021 9:28 PM [facility] MCHC 32.3 30.8 - 35.9 g/dL 10/30/2021 9:28 PM [facility] Platelet Count 255 150 - 400 10? 3 /uL 10/30/2021 9:28 PM [facility] RDW-SD 47.0 36.0 - 50.0 fL 10/30/2021 9:28 PM [facility] RDW-CV 13.9 11.2 - 14.8 % 10/30/2021 9:28 PM [facility] MPV 9.6 9.4 - 12.9 fL 10/30/2021 9:28 PM [facility] nRBC Absolute 0.00 0 10? 3 /uL 10/30/2021 9:28 PM [facility] nRBC Auto 0.0 0 /100 WBC 10/30/2021 9:28 PM [facility] Neutrophils % 93.0(H) 35.0 - 70.0 % 10/30/2021 9:28 PM [facility] Lymphocytes % 3.8(L) 20.0 - 43.0 % 10/30/2021 9:28 PM [facility] Monocytes % 2.5(L) 5.0 - 13.0 % 10/30/2021 9:28 PM [facility] Eosinophils % 0.0 0.0 - 6.0 % 10/30/2021 9:28 PM [facility] Basophil % 0.2 0.0 - 2.0 % 10/30/2021 9:28 PM [facility] Neutrophils Absolute 19.09(H) 1.60 - 7.00 10? 3 /uL 10/30/2021 9:28 PM [facility] Lymphocyte Absolute 0.77(L) 1.10 - 3.90 10? 3 /uL 10/30/2021 9:28 PM [facility] Monocytes Absolute 0.52 0.26 - 1.07 10? 3 /uL 10/30/2021 9:28 PM [facility] Eosinophils Absolute 0.01 0.00 - 0.47 10? 3 /uL 10/30/2021 9:28 PM [facility] Basophils Absolute 0.04 0.00 - 0.08 10? 3 /uL 10/30/2021 9:28 PM [facility] Immature Granulocytes % 0.5 0.0 - 1.0 % 10/30/2021 9:28 PM [facility] Immature Granulocytes Absolute 0.10 10/30/2021 9:28 PM [facility] Blood BLOOD SPECIMEN / Unknown Lab Venipuncture / Unknown 10/30/2021 9:00 PM CDT 10/30/2021 9:22 PM [facility] Gil Hill MD LAB - HEMATOLO GY ORDERABLES Performing Organization Address City/State/[facility] Co de Phone Number [facility] [address] [phone], [facility] [phone] * (ABNORMAL) PT-INR [facility] (10/30/2021 9:00 PM CDT) PT 15.8(H) 12.1 - 14.8 Seconds 10/30/2021 9:47 PM CDT [facility] INR 1.3 See Comment 10/30/2021 9:47 PM CDT [facility] Comment:The suggested therap eutic range for standard coumadin (warfarin) therapy is an INR of 2.0-3.0. For high-risk patients (Mechanical Mitral Valve Prosthesis, etc.), the suggested prophylactic therapeutic range is an INR of 2.5-3.5. Blood BLOOD SPECIMEN / Unknown Lab Venipuncture / Unknown 10/30/2021 9:00 PM CDT 10/30/2021 9:22 PM CDT Gil Hill MD LAB - COAGULAT ION ORDERABLES [facility] [address] [place] [address], [facility] [phone] * PTT [facility] (10/30/2021 9:00 PM CDT) Pathologist [facility] APTT 30.8 23.0 - 38.4 Seconds 10/30/2021 9:47 PM CDT [facility] Comment:Suggested therapeuti c range for full dose I.V. unfractionated heparin therapy for venous thromboembolism is 71 to 109 seconds. Blood BLOOD SPECIMEN / Unknown Lab Venipuncture / Unknown 10/30/2021 9:00 PM CDT 10/30/2021 9:22 PM CDT Gil Hill MD LAB - COAGULAT ION ORDERABLES [facility] [address] [place] [address], [facility] [phone] * XR CHEST 1VW PORTABLE (10/30/2021 6:34 PM CDT) Anatomical Region Laterality Modality Chest Radiographic Patrick ging 10/31/2021 8:28 AM CDT Impressions 10/31/2021 11:18 AM CDT FINDINGS/IMPRESSION: There is underpenetration of the x-ray beams. Leads of an electronic device superimposes the thoracic spine. Retrocardiac opacity pulmonary vascular congestion could represent pulmonary mass or congestion with a component of atelectasis and/or airspace disease in the lingula. The cardiac silhouette is obscured. The mediastinal silhouette is mildly enlarged. The visible bony thorax is intact. Report dictated by Alex Bradley MD (radiology director). I, Dr. TYLOR PENNINGTON have personally reviewed and interpreted this examination/study. This report was electronically signed by TYLOR PENNINGTON ??on 10/31/2021 11:18 AM . Narrative 10/31/2021 11:18 AM CDT EXAMINATION: XR CHEST 1VW PORTABLE, 10/30/2021 6:35 PM HISTORY: Z01.818: Preoperative examination COMPARISON: 10/30/2021 Procedure Note Tylor Pennington DO - 10/31/2021 EXAMINATION: XR CHEST 1VW PORTABLE, 10/30/2021 6:35 PM HISTORY: Z01.818: Preoperative examination COMPARISON: 10/30/2021 FINDINGS/IMPRESSION: There is underpenetration of the x-ray beams. Leads of an electronic device superimposes the thoracic spine. Retrocardiac opacity pulmonary vascular congestion could represent pulmonary mass or congestion with a component of atelectasis and/or airspace disease in the lingula. The cardiac silhouette is obscured. The mediastinal silhouette is mildly enlarged. The visible bony thorax is intact. Report dictated by Alex Bradley MD (radiology director). Dr. TYLOR Perez have personally reviewed and interpreted this examination/study. This report was electronically signed by TYLOR PENNINGTON on 10/31/2021 11:18 AM . Gil Hill MD DIAGNOSTIC PATRCIK GING ORDERABLES * (ABNORMAL) GLUCOSE - POINT OF CARE (10/30/2021 5:30 PM CDT) Glucose WB/POC 173(H) 70 - 115 mg/dL 10/30/2021 5:35 PM CDT [facility] Specimen Type Cap Fingerstick 2021 5:35 PM CDT [facility] Blood BLOOD SPECIMEN / Unknown 10/30/2021 5:30 PM CDT 10/30/2021 5:35 PM CDT Gil Hill MD LAB - POINT OF CARE ORDERABLES [facility] [address] [place] [address], [place] [phone] * CULTURE FUNGUS OTHER+FUNGUS SMEAR (10/30/2021 4:51 PM CDT) Pathologist [facility] Culture No fungus isolated TERRANCE 11/29/2021 12:06 PM CDT [facility] Fungus Stain No yeast or hyphae seen 11/29/2021 12:06 PM CDT [facility] Microbiology SPECIMEN FROM WOUND / Unknown Collection / Unknown 10/30/2021 4:51 PM CDT 10/30/2021 5:24 PM CDT Maxi Gregg MD LAB - MICROBIOLO GY ORDERABLES Performing Organization Address City/[facility]/ZIP Co de Phone Number [facility] [address] [place] [address], [facility] [phone] * CULTURE ANAEROBE (10/30/2021 4:51 PM CDT) Culture No anaerobic organisms isolated [place]ANCE 11/04/2021 11:12 AM CDT [facility] Microbiology SPECIMEN FROM WOUND / Unknown Collection / Unknown 10/30/2021 4:51 PM CDT 10/30/2021 5:24 PM CDT Maxi Gregg MD LAB - MICROBIOLO GY ORDERABLES [facility] [address] [place] [address], [facility] [phone] * (ABNORMAL) CULTURE FLUID+GRAM STAIN (10/30/2021 4:51 PM CDT) Culture Heavy Escherichia coli(AA) [place] 11/03/2021 12:18 AM CDT [facility] Comment:Strain 1 Culture Heavy Escherichia coli(AA) [place]ANCE 11/03/2021 12:18 AM CDT [facility] Comment:Strain 2 Gram Stain Heavy Polymorphonuclear cells(AA) 11/03/2021 12:18 AM CDT [facility] Gram Stain Light Gram-negative bacilli(AA) 11/03/2021 12:18 AM CDT [facility] Fluid BODY FLUID SPECIMEN / Unknown [...] ug/mL: Susceptible Escherichia coli Trimethoprim-sulfame thoxa zole ETRRANCE >=320 ug/mL: Resistant Comment:*Cefazolin TERRANCE of </ [...] Gregg MD LAB - MICROBIOLO GY ORDERABLES [facility] [address] [place] [address], [facility] [phone] * (ABNORMAL) GLUCOSE - POINT OF CARE (10/30/2021 2:48 PM CDT) Pathologist [facility] Glucose WB/POC 170(H) 70 - 115 mg/dL 10/30/2021 2:53 PM CDT [facility] Specimen Type Cap Fingerstick 2021 2:53 PM CDT [facility] Blood BLOOD SPECIMEN / Unknown 10/30/2021 2:48 PM CDT 10/30/2021 2:53 PM CDT Gil Hill MD LAB - POINT OF CARE ORDERABLES [facility] [address] [place] [address], [place] [phone] * (ABNORMAL) PT-INR [facility] (10/30/2021 1:46 PM CDT) Pathologist [facility] PT 15.8(H) 12.1 - 14.8 Seconds 10/30/2021 2:21 PM CDT [facility] INR 1.3 See Comment 10/30/2021 2:21 PM CDT [facility] Comment:The suggested therap eutic range for standard coumadin (warfarin) therapy is an INR of 2.0-3.0. For high-risk patients (Mechanical Mitral Valve Prosthesis, etc.), the suggested prophylactic therapeutic range is an INR of 2.5-3.5. Blood BLOOD SPECIMEN / Unknown Venipuncture / Unknown 10/30/2021 1:46 PM CDT 10/30/2021 1:56 PM CDT Gil Hill MD LAB - COAGULAT ION ORDERABLES Performing Organization Address [facility]/ZIP Co de Phone Number [facility] [address] [place] [phone], [facility] [phone] * PTT [facility] (10/30/2021 1:46 PM CDT) APTT 30.7 23.0 - 38.4 Seconds 10/30/2021 2:22 PM CDT [facility] Comment:Suggested therapeuti c range for full dose I.V. unfractionated heparin therapy for venous thromboembolism is 71 to 109 seconds. Blood BLOOD SPECIMEN / Unknown Venipuncture / Unknown 10/30/2021 1:46 PM CDT 10/30/2021 1:56 PM CDT Gil Hill MD LAB - COAGULAT ION ORDERABLES Performing Organization Address [facility] Co de Phone Number [address] [phone], [facility] [phone] * (ABNORMAL) URINALYSIS REFLEX TO MICROSCOPIC NO CULTURE (10/30/2021 1:46 PM CDT) Color UA Yellow Straw, Yellow 10/30/2021 2:04 PM CDT [facility] Clarity UA Clear Clear 10/30/2021 2:04 PM CDT [facility] Specific [place]yle UA 1.027 1.005 - 1.030 10/30/2021 2:04 PM CDT [facility] pH UA 5.0 5.0 - 8.0 pH 10/30/2021 2:04 PM CDT [facility] Protein UA Negative Negative 10/30/2021 2:04 PM CDT [facility] Glucose UA 1+(A) Negative 10/30/2021 2:04 PM T [facility] Ketone UA Negative Negative 10/30/2021 2:04 PM T [facility] Bilirubin UA Negative Negative 10/30/2021 2:04 PM T [facility] Blood UA 1+(A) Negative 10/30/2021 2:04 PM CDT [facility] Nitrite UA Negative Negative 10/30/2021 2:04 PM T [facility] Leukocyte Esterase Negative Negative 10/30/2021 2:04 PM T [facility] Urobilinogen UA Negative Negative mg/dL 10/30/2021 2:04 PM T [facility] RBC UA 6-10(A) None Seen, 0-2, 3-5 /HPF 10/30/2021 2:04 PM T [facility] WBC UA 6-10(A) None Seen, 0-5 /HPF 10/30/2021 2:04 PM T [facility] Squamous Epithelial Cells UA None Seen None Seen, 0-2, 3-5 /HPF 10/30/2021 2:04 PM [facility] Mucus UA 2+ /LPF 10/30/2021 2:04 PM T [facility] Urine URINE SPECIMEN OBTAINED BY CLEAN CATCH PROCEDURE / Unknown Collection / Unknown 10/30/2021 1:46 PM CDT 10/30/2021 1:55 PM CDT Narrative [facility] - 10/30/2021 2:04 PM CDT Gil Hill MD LAB - URINALYS IS ORDERABLES [facility] [address] [place] [phone], [facility] [phone] * TYPE + SCREEN PANEL (10/30/2021 1:46 PM CDT) Antibody Screen NEG 2:40 PM CDT [facility] ABO Rh O POS 10/30/2021 2:40 PM CDT [facility] Blood Bank BLOOD SPECIMEN / Unknown Venipuncture / Unknown 10/30/2021 1:46 PM CDT 10/30/2021 1:56 PM CDT Gil Hill MD LAB - BLOOD BA NK ORDERABLES Performing Organization Address [facility] Co de Phone Number [facility] [address] [place] [address], [place] [phone] * EKG 12-LEAD (10/30/2021 12:00 PM CDT) Ventricular Rate 82 BPM [facility] M[facility] Atrial Rate 82 BPM [facility] P-R Interval 124 ms [facility] QRS Duration ms 88 ms [facility] Q-T Interval ms 372 ms [facility] QTC Calculation (Bezet) 434 ms [facility] Calculated P [place] 60 degrees SL MUSE Calculated R [place] 11 degrees SL MUSE Calculated T [place] 38 degrees [facility] Interpretation EKG NORMAL SINUS RHYTHM WITH SINUS ARRHYTHMIA NONSPECIFIC T WAVE ABNORMALITY ABNORMAL ECG NO PREVIOUS ECGS AVAILABLE Confirmed by MD Tirso. , Lizzy ([id number]) on 10/31/2021 6:58:26 PM [facility] 10/30/2021 12:0 0 PM CDT 10/31/2021 6:58 PM CDT Gil Hill MD ECG ORDERABLES Performing Organization Address [facility] de Phone Number [facility] * BLOOD TYPE VERIFICATION (10/30/2021 11:31 AM CDT) ABO Rh O POS 10/30/2021 2:2 7 PM CDT [facility] Blood Bank BLOOD SPECIMEN / Unknown 10/30/2021 11:31 AM CDT 10/30/2021 1:58 PM CDT Della Sagastume MD LAB - BLOOD BANK ORD ERABLES Performing Organization Address [facility] Co de Phone Number [facility] [address] [place] [address], [place] [phone] * CULTURE URINE (10/30/2021 8:03 AM CDT) Culture Urine <10,000 CFU/mL urogenital evelio TERRANCE 10/31/2021 11:39 AM CDT [facility] Urine URINE SPECIMEN OBTAINED BY CLEAN CATCH PROCEDURE / Unknown Collection / Unknown 10/30/2021 8:03 AM CDT 10/30/2021 8:10 AM CDT Lila Castillo MD LAB - MICROBIOLOGY O RDERABLES [facility] [address] [place] [address], [facility] [phone] * (ABNORMAL) URINALYSIS REFLEX TO MICROSCOPIC NO CULTURE (10/30/2021 8:03 AM CDT) Color UA Yellow Straw, Yellow 10/30/2021 8:20 AM [facility] Clarity UA Clear Clear 10/30/2021 8:20 AM [facility] Specific [place] UA 1.027 1.005 - 1.030 10/30/2021 8:20 AM [facility] pH UA 5.0 5.0 - 8.0 pH 10/30/2021 8:20 AM [facility] Protein UA Negative Negative 10/30/2021 8:20 AM [facility] Glucose UA 1+(A) Negative 10/30/2021 8:20 AM [facility] Ketone UA Negative Negative 10/30/2021 8:20 AM [facility] Bilirubin UA Negative Negative 10/30/2021 8:20 AM [facility] Blood UA 1+(A) Negative 10/30/2021 8:20 AM [facility] Nitrite UA Negative Negative 10/30/2021 8:20 AM [facility] Leukocyte Esterase Negative Negative 10/30/2021 8:20 AM [facility] Urobilinogen UA Negative Negative mg/dL 10/30/2021 8:20 AM [facility] RBC UA 6-10(A) None Seen, 0-2, 3-5 /HPF 10/30/2021 8:20 AM [facility] WBC UA 0-5 None Seen, 0-5 /HPF 10/30/2021 8:20 AM CDT [facility] Squamous Epithelial Cells UA None Seen None Seen, 0-2, 3-5 /HPF 10/30/2021 8:20 AM CDT [facility] Urine URINE SPECIMEN OBTAINED BY CLEAN CATCH PROCEDURE / Unknown Collection / Unknown 10/30/2021 8:03 AM CDT 10/30/2021 8:10 AM CDT Narrative [facility] - 10/30/2021 8:20 AM CDT Lila Castillo MD LAB - URINALYSIS ORD ERABLES Performing Organization Address City/[facility]/ZIP Co de Phone Number [facility] [address] [place] [phone], [facility] [phone] * CULTURE BLOOD (10/30/2021 6:41 AM CDT) Culture No growth day 5 [place] 11/04/2021 10:32 AM CDT [facility] Blood PERIPHERAL BLOOD / Unknown Venipuncture / Unknown 10/30/2021 6:41 AM CDT 10/30/2021 7:01 AM CDT Lila Castillo MD LAB - MICROBIOLOGY O RDERABLES Performing Organization Address City/[facility]/ZIP Co de Phone Number [facility] [address] [place] [phone], [facility] [phone] * CULTURE BLOOD (10/30/2021 6:40 AM CDT) Culture No growth day 5 [place] 11/04/2021 10:32 AM CDT [facility] Blood PERIPHERAL BLOOD / Unknown Venipuncture / Unknown 10/30/2021 6:40 AM CDT 10/30/2021 7:01 AM CDT Lila Castillo MD LAB - MICROBIOLOGY O RDERABLES Performing Organization Address City/[facility]/ZIP Co de Phone Number [facility] [address] [place] [id number] [phone] * (ABNORMAL) C-REACTIVE PROTEIN (10/30/2021 5:33 AM CDT) Pathologist [facility] C-Reactive Protein 14.2(H) <=0.5 mg/dL 10/30/2021 6:13 AM CDT [facility] Blood BLOOD SPECIMEN / Unknown Venipuncture / Unknown 10/30/2021 5:33 AM CDT 10/30/2021 5:43 AM CDT Lila Castillo MD LAB - CHEMISTRY ORDE RABSIMRAN [address] [phone], [facility] [phone] * (ABNORMAL) ERYTHROCYTE SEDIMENTATION RATE (10/30/2021 5:33 AM CDT) [facility] Erythrocyte Sedimentation Rate [place] 107(H) 0 - 30 MM/HR 10/30/2021 6:13 AM CDT [facility] Blood BLOOD SPECIMEN / Unknown Venipuncture / Unknown 10/30/2021 5:33 AM CDT 10/30/2021 5:44 AM CDT Lila Castillo MD LAB - HEMATOLOGY ORD ERABLES [address] [address], [place] [phone] * (ABNORMAL) COMPREHENSIVE METABOLIC PANEL (10/30/2021 5:33 AM CDT) Pathologist [facility] BUN 14 7 - 26 mg/dL 10/30/2021 6:10 AM CDT [facility] [facility] Creatinine 0.63 0.56 - 0.96 mg/dL 10/30/2021 6:10 AM CDT [facility] Sodium 135(L) 136 - 145 mmol/L 10/30/2021 6:10 AM CDT [facility] Potassium 4.1 3.5 - 4.5 mmol/L 10/30/2021 6:10 AM CDT [facility] Chloride 99 98 - 107 mmol/L 10/30/2021 6:10 AM [facility] CO2 27 22 - 29 mmol/L 10/30/2021 6:10 AM [facility] Glucose 217(H) 70 - 115 mg/dL 10/30/2021 6:10 AM [facility] Calcium 9.2 8.4 - 10.2 mg/dL 10/30/2021 6:10 AM [facility] Protein Total 7.2 6.0 - 8.3 g/dL 10/30/2021 6:10 AM [facility] Albumin 2.8(L) 3.4 - 5.0 g/dL 10/30/2021 6:10 AM [facility] Bilirubin Total 1.3(H) 0.2 - 1.2 mg/dL 10/30/2021 6:10 AM [facility] Alkaline Phosphatase 77 40 - 150 U/L 10/30/2021 6:10 AM [facility] ALT 14 5 - 55 U/L 10/30/2021 6:10 AM [facility] AST 11 5 - 34 U/L 10/30/2021 6:10 AM [facility] Anion Gap 13 8 - 18 10/30/2021 6:10 AM [facility] BUN/Creatinine Ratio 22 7 - 23 10/30/2021 6:10 AM [facility] Osmolality Calculated 287 270 - 300 mOsm/kg 10/30/2021 6:10 AM [facility] Albumin/Globulin Ratio 0.6(L) 1.1 - 2.3 10/30/2021 6:10 AM [facility] eGFR by CKD-EPI >90 >=90 mL/min/1.7 3 m2 10/30/2021 6:10 AM [facility] Blood BLOOD SPECIMEN / Unknown Venipuncture / Unknown 10/30/2021 5:33 AM CDT 10/30/2021 5:44 AM [facility] Lila Castillo MD LAB - CHEMISTRY ANGEL SPE[facility] Organization Address City/State/ZIP Co de Phone Number [facility] [address] [address], [facility] [phone] * (ABNORMAL) CBC W AUTO DIFFERENTIAL (10/30/2021 5:33 AM CDT) WBC 20.5(H) 3.5 - 10.5 10? 3 /uL 10/30/2021 5:56 AM [facility] RBC 4.28 3.80 - 5.20 10? 6 /uL 10/30/2021 5:56 AM [facility] Hemoglobin 12.5 12.0 - 15.6 g/dL 10/30/2021 5:56 AM [facility] Hematocrit 39.8 35.0 - 45.0 % 10/30/2021 5:56 AM [facility] MCV 93.0 80.7 - 98.3 fL 10/30/2021 5:56 AM [facility] MCH 29.2 26.7 - 34.0 pg 10/30/2021 5:56 AM [facility] MCHC 31.4 30.8 - 35.9 g/dL 10/30/2021 5:56 AM [facility] Platelet Count 298 150 - 400 10? 3 /uL 10/30/2021 5:56 AM [facility] RDW-SD 47.6 36.0 - 50.0 fL 10/30/2021 5:56 AM [facility] RDW-CV 14.1 11.2 - 14.8 % 10/30/2021 5:56 AM [facility] MPV 10.4 9.4 - 12.9 fL 10/30/2021 5:56 AM [facility] nRBC Absolute 0.00 0 10? 3 /uL 10/30/2021 5:56 AM [facility] nRBC Auto 0.0 0 /100 WBC 10/30/2021 5:56 AM [facility] Neutrophils % 82.3(H) 35.0 - 70.0 % 10/30/2021 5:56 AM [facility] Lymphocytes % 8.8(L) 20.0 - 43.0 % 10/30/2021 5:56 AM [facility] Monocytes % 7.4 5.0 - 13.0 % 10/30/2021 5:56 AM [facility] Eosinophils % 0.8 0.0 - 6.0 % 10/30/2021 5:56 AM [facility] Basophil % 0.2 0.0 - 2.0 % 10/30/2021 5:56 AM [facility] Neutrophils Absolute 16.83(H) 1.60 - 7.00 10? 3 /uL 10/30/2021 5:56 AM [facility] Lymphocyte Absolute 1.80 1.10 - 3.90 10? 3 /uL 10/30/2021 5:56 AM [facility] Monocytes Absolute 1.52(H) 0.26 - 1.07 10? 3 /uL 10/30/2021 5:56 AM [facility] Eosinophils Absolute 0.17 0.00 - 0.47 10? 3 /uL 10/30/2021 5:56 AM [facility] Basophils Absolute 0.04 0.00 - 0.08 10? 3 /uL 10/30/2021 5:56 AM [facility] Immature Granulocytes % 0.5 0.0 - 1.0 % 10/30/2021 5:56 AM [facility] Immature Granulocytes Absolute 0.11 10/30/2021 5:56 AM [facility] Blood BLOOD SPECIMEN / Unknown Venipuncture / Unknown 10/30/2021 5:33 AM CDT 10/30/2021 5:44 AM [facility] Lila Castillo MD LAB - HEMATOLOGY ORD ERABLES [facility] [address] [place] [address], [facility] [phone] documented in this encounter Visit Diagnoses Diagnosis S/P insertion of spinal cord stimulator- Primary Preoperative examination Preoperative examination, unspecified S/P insertion of spinal cord stimulator Acute post-operative pain Chronic anticoagulation Encounter for long-term (current) use of anticoagulants Other acute postprocedural pain [facility] (current) use of anticoagulants Long-term (current) use of anticoagulants Encounter for other preprocedural examination Chronic back pain Backache, unspecified Anxiety and depression Dysthymic disorder CVA (cerebral vascular accident) (HCC) Unspecified cerebral artery occlusion with cerebral infarction Chronic anticoagulation Encounter for long-term (current) use of anticoagulants Essential hypertension Neuropathy Mononeuritis of unspecified site LUL (obstructive sleep apnea) Obstructive sleep apnea (adult) (pediatric) Type 2 diabetes mellitus without complication ([facility]) Preoperative examination Preoperative examination, unspecified Acute post-operative pain documented in this encounter Administered Medications Inactive Administered Medications - up to 3 most recent administrations Medication Order MAR Action Action Date Dose Rate Site 0.9% NaCl infusion at 75 mL/hr, Intravenous, CONTINUOUS, Starting on 10/30/21 at 1445, Until 11/02/21 at 1121, Pre-op $ New Bag/Syringe 11/02/2021 6:41 AM CDT 75 mL/hr $ New Bag/Syringe 10/31/2021 12:41 PM CDT 75 mL /hr $ New Bag/Syringe 10/30/2021 6:42 PM CDT 75 mL/ hr 0.9% NaCl injection 1-10 mL 1-10 mL, Intracatheter, PRN, Other, peripheral line flush, Starting on 10/30/21 at 1437, Until 11/06/21 at 1518, Flush peripheral IV catheter with 1-10 mL of normal saline before and after medications and prn to clear blood from the line or to verify patency., Pre-op $ Given 11/06/2021 6:52 AM CDT 10 mL 0.9% NaCl injection 3 mL 3 mL, Intracatheter, EVERY 8 HOURS, First dose on 10/30/21 at 1445, Until Discontinued, Flush peripheral IV catheter with 3 mL of normal saline every 8 hours., Pre-op $ Given 11/06/2021 6:54 AM CDT 3 mL $ Given 11/05/2021 9:52 PM CDT 3 mL $ Given 11/05/2021 12:10 PM CDT 3 mL acetaminophen (Tylenol) tablet 650 mg 650 mg, Oral, NOW, 1 dose, On 10/30/21 at 0800, Patient preference for lesser PRN pain meds may be honored when the patient requests a less strong medication, a lower dose, or a less intrusive route of administration when the lesser drug, dose and route have been ordered for the patient. This patient request must be documented in the MAR. $ Given 10/30/2021 7:58 AM CDT 650 mg acetaminophen (Tylenol) tablet 650 mg 650 mg, Oral, EVERY 6 HOURS PRN, Fever, Mild Pain, Starting on Mon10/31/21 at 1713, Until Mon11/03/21 at 1134, Patient preference for lesser PRN pain meds may be honored when the patient requests a less strong medication, a lower dose, or a less intrusive route of administration when the lesser drug, dose and route have been ordered for the patient. This patient request must be documented in the MAR. $ Given 10/31/2021 5:23 PM CDT 650 m g acetaminophen (Tylenol) tablet 650 mg 650 mg, Oral, EVERY 6 HOURS, First dose on Mon11/03/21 at 1145, Until Discontinued, Patient preference for lesser PRN pain meds may be honored when the patient requests a less strong medication, a lower dose, or a less intrusive route of administration when the lesser drug, dose and route have been ordered for the patient. This patient request must be documented in the MAR. $ Given 11/06/2021 11:52 AM CDT 650 mg $ Given 11/06/2021 6:52 AM CDT 650 mg $ Given 11/05/2021 5:02 PM CDT 650 mg amitriptyline (Elavil) tablet 25 mg 25 mg, Oral, AT BEDTIME, First dose on 10/30/21 at 2100, Until Discontinued $ Given 11/05/2021 9:52 PM CDT 25 mg $ Given 11/04/2021 9:18 PM CDT 25 mg $ Given 11/03/2021 10:07 PM CDT 25 mg bisacodyl (Dulcolax) suppository 10 mg 10 mg, Rectal, DAILY PRN, Constipation, Starting on Mon11/02/21 at 1729, Until 11/06/21 at 1518 calcium carbonate (Tums) chew tablet 1 tablet 1 tablet, Oral, EVERY 4 HOURS PRN, Heartburn, GI Upset, Starting on Mon11/02/21 at 1729, Until 11/06/21 at 1518 cyclobenzaprine (Flexeril) tablet 10 mg 10 mg, Oral, 3 TIMES DAILY PRN, Muscle Spasms, Starting on Mon10/31/21 at 2358, Until Mon11/06/21 at 1518 $ Given 11/06/2021 6:52 AM CDT 10 mg $ Given 11/05/2021 5:02 PM CDT 10 mg $ Given 11/05/2021 10:21 AM CDT 10 mg dextrose IV 12.5 g 12.5 g, Intravenous, PRN, Other, Bedside Glucose less than 70 mg/dL -If NOT able to eat and/or NPO and with IV Access, Starting on Mon10/30/21 at 1129, Until Mon11/06/21 at 1518, If NOT able to eat and/or NPO [...] NPO and with IV Access, Starting on Mon10/30/21 at 1129, Until Mon11/06/21 at 1518, If NOT able to eat and/or NPO [...] 80 mg/dl. NOTIFY PROVIDER OF HYPOGLYCEMIC EVENT. diphenhydrAMINE (Benadryl) capsule 25 mg 25 mg, Oral, EVERY 6 HOURS PRN, Itching, Allergies, Insomnia, Starting on Mon11/02/21 at 1729, Until Mon11/06/21 at 1518 ertapenem (INVanz) 1,000 mg in 0.9% NaCl IV 50 mL IVPB 1,000 mg (1 g), at 100 mL/hr, Intravenous, EVERY 24 HOURS, First dose on Mon11/02/21 at 1130, Until Discontinued, Indication for anti-infective therapy: Documented infection, Site of anti-infective therapy: Wound, Skin/soft tissue $ New Bag/Syringe 11/06/2021 11:54 AM CDT 1,000 mg 100 mL/hr $ New Bag/Syringe 11/05/2021 12:02 PM CDT 1,000 mg 100 m L/hr $ New Bag/Syringe 11/04/2021 11:26 AM CDT 1,000 mg 100 m L/hr exemestane (Aromasin) tablet 25 mg 25 mg, Oral, DAILY, First dose on 10/30/21 at 1200, Until Discontinued $ Given 11/06/2021 8:23 AM CDT 25 mg $ Given 11/05/2021 8:30 AM CDT 25 mg $ Given 11/04/2021 8:15 AM CDT 25 mg fentaNYL (PF) (Sublimaze) injection 50 mcg 50 mcg, Intravenous, EVERY 10 MIN PRN, Moderate Pain, 3 doses, Starting on 10/30/21 at 1718, Until 10/30/21 at 1816, Maximum total of 4 doses. If patient [...] documented in the MAR., PACU $ Given 10/30/2021 5:23 PM CDT 50 mcg $ Given 10/30/2021 5:10 PM CDT 50 mcg gabapentin (Neurontin) capsule 300 mg 300 mg, Oral, 3 TIMES DAILY, First dose on 11/01/21 at 0000, Until Discontinued $ Given 11/06/2021 8:23 AM CDT 300 mg $ Given 11/05/2021 9:52 PM CDT 300 mg $ Given 11/05/2021 2:03 PM CDT 300 mg heparin injection 5,000 Units 5,000 Units, Subcutaneous, EVERY 8 HOURS, First dose on 10/30/21 at 2200, Until Discontinued $ Given 11/06/2021 6:52 AM CDT 5,000 Units Abdominal Tissue $ Given 11/05/2021 9:53 PM CDT 5,000 Units L eft Arm $ Given 11/05/2021 2:03 PM CDT 5,000 Units A bd Left Lower Quadrant heparinized saline 2 units/ml infusion Other, CONTINUOUS PRN, Starting on Mon11/03/21 at 1053, Until Mon11/03/21 at 1053 $ New Bag/Syringe 11/03/2021 10:53 AM CDT 500 mL heparinized saline 2 units/ml infusion Other, CONTINUOUS PRN, Starting on Mon11/05/21 at 1430, Until Mon11/05/21 at 1431 $ New Bag/Syringe 11/05/2021 2:30 PM CDT 500 mL HYDROcodone-acetaminophen ([place]) 5-325 MG tablet 1 tablet 1 tablet, Oral, EVERY 6 HOURS PRN, Severe Pain, Starting on 10/30/21 at 1128, Until 10/30/21 at 202, Patient preference for lesser PRN pain meds may be honored when the patient requests a less strong medication, a lower dose, or a less intrusive route of administration when the lesser drug, dose and route have been ordered for the patient. This patient request must be documented in the MAR. $ Given 10/30/2021 2:52 PM CDT 1 tablet HYDROcodone-acetaminophen ([place]) 5-325 MG tablet 1 tablet 1 tablet, Oral, EVERY 4 HOURS PRN, Severe Pain, Starting on 10/30/21 at 2030, Until 10/31/21 at 0852, Patient preference for lesser PRN pain meds may be honored when the patient requests a less strong medication, a lower dose, or a less intrusive route of administration when the lesser drug, dose and route have been ordered for the patient. This patient request must be documented in the MAR. $ Given 10/31/2021 5:58 AM CDT 1 tablet $ Given 10/31/2021 12:52 AM CDT 1 tablet $ Given 10/30/2021 8:34 PM CDT 1 tablet HYDROcodone-acetaminophen ([place]) 5-325 MG tablet 2 tablet 2 tablet, Oral, EVERY 6 HOURS PRN, Severe Pain, Starting on 10/31/21 at 0900, Until 10/31/21 at 2136, Patient preference for lesser PRN pain meds may be honored when the patient requests a less strong medication, a lower dose, or a less intrusive route of administration when the lesser drug, dose and route have been ordered for the patient. This patient request must be documented in the MAR. $ Given 10/31/2021 7:43 PM CDT 2 tablets $ Given 10/31/2021 11:52 AM CDT 2 tablets HYDROmorphone (Dilaudid) injection 0.2 mg 0.2 mg, Intravenous, EVERY 4 HOURS PRN, Breakthrough pain or if unable to take PO, Starting on 10/31/21 at 2136, Until 11/06/21 at 1518, Patient preference for lesser PRN pain meds may be honored when the patient requests a less strong medication, a lower dose, or a less intrusive route of administration when the lesser drug, dose and route have been ordered for the patient. This patient request must be documented in the MAR. $ Given 11/05/2021 7:41 PM CDT 0.2 m g $ Given 11/05/2021 2:03 PM CDT 0.2 mg $ Given 10/31/2021 10:53 PM CDT 0.2 mg HYDROmorphone (Dilaudid) injection 0.5 mg 0.5 mg, Intravenous, EVERY 10 MIN PRN, Severe Pain, 4 doses, Starting on 10/30/21 at 1718, Until 10/30/21 at 1816, Maximum total of 4 doses If patient [...] documented in the MAR., PACU $ Given 10/30/2021 5:50 PM CDT 0.5 mg $ Given 10/30/2021 5:37 PM CDT 0.5 mg insulin glargine (Lantus) vial 19 Units 19 Units (rounded from 19.395 Units = 0.15 Units/kg ? 129.3 kg), Subcutaneous, AT BEDTIME, First dose on Mon11/01/21 at 2100, Until Discontinued, DO NOT HOLD EVEN IF PATIENT IS NPO . WASTE DISPOSAL INSTRUCTIONS: Black Bin Disposal required. $ Given 11/05/2021 9:51 PM CDT 19 Units Abdominal Tissue $ Given 11/04/2021 9:18 PM CDT 19 Units Le ft Arm $ Given 11/03/2021 10:07 PM CDT 19 Units A bdominal Tissue insulin lispro (HumaLOG;ADMelog) 100 UNIT/ML pen 0-6 Units 0-6 Units, Subcutaneous, 3 TIMES DAILY WITH MEALS, First dose on Mon10/31/21 at 1800, Until Discontinued, DO NOT HOLD CORRECTION BOLUS [...] 6 units and notify physician $ Given 11/06/2021 8:23 AM CDT 1 Units Left Arm $ Given 11/05/2021 5:01 PM CDT 1 Units Le ft Arm $ Given 11/05/2021 12:10 PM CDT 1 Units R ight Arm lidocaine (Xylocaine) 1 % injection Subcutaneous, ONCE PRN, Starting on Mon11/03/21 at 1053, Until Mon11/03/21 at 1053 $ Given 11/03/2021 10:53 AM CDT 10 mL See Comments lidocaine (Xylocaine) 1 % injection Subcutaneous, ONCE PRN, Starting on Mon11/05/21 at 1438, Until Mon11/05/21 at 1438 $ Given 11/05/2021 2:38 PM CDT 5 mL Right Arm melatonin tablet 3 mg 3 mg, Oral, AT BEDTIME PRN, Insomnia, Starting on Tu11/02/21 at 1729, Until 11/06/21 at 1518 $ Given 11/02/2021 9:32 PM CDT 3 mg meropenem (Merrem) 1,000 mg in 0.9% NaCl IV 50 mL IVPB 1,000 mg, at 100 mL/hr, Intravenous, EVERY 8 HOURS, First dose on 10/30/21 at 0630, Until Discontinued, Indication for anti-infective therapy: Documented infection, Site of anti-infective therapy: Wound $ New Bag/Syringe 11/02/2021 4:11 AM CDT 1,000 mg 100 mL/hr $ New Bag/Syringe 11/01/2021 8:22 PM CDT 1,000 mg 100 mL /hr $ New Bag/Syringe 11/01/2021 1:15 PM CDT 1,000 mg 100 mL /hr morphine injection 4 mg 4 mg, Intravenous, NOW, 1 dose, On 10/30/21 at 0415, Patient preference for lesser PRN pain meds may be honored when the patient requests a less strong medication, a lower dose, or a less intrusive route of administration when the lesser drug, dose and route have been ordered for the patient. This patient request must be documented in the MAR. $ Given 10/30/2021 5:37 AM CDT 4 mg morphine injection 4 mg 4 mg, Intravenous, ONCE, 1 dose, On 10/30/21 at 0815, Patient preference for lesser PRN pain meds may be honored when the patient requests a less strong medication, a lower dose, or a less intrusive route of administration when the lesser drug, dose and route have been ordered for the patient. This patient request must be documented in the MAR. $ Given 10/30/2021 7:58 AM CDT 4 mg nystatin (Mycostatin) suspension 5 mL 5 mL, Swish and Spit, 4 TIMES DAILY, First dose on Mon11/03/21 at 1700, Until Discontinued, Swish in mouth as long as possible. Shake well prior to administration. $ Given 11/06/2021 8:2 3 AM CDT 5 mL $ Given 11/05/2021 9:52 PM CDT 5 mL $ Given 11/05/2021 5:05 PM CDT 5 mL ondansetron (disintegrating) (Zofran ODT) tablet 4 mg 4 mg, Oral, ONCE, 1 dose, On 10/30/21 at 0445, Dissolved orally on tongue Dissolved orally on tongue $ Given 10/30/2021 5:36 AM CDT 4 mg oxybutynin (Ditropan) tablet 5 mg 5 mg, Oral, 3 TIMES DAILY, First dose on 10/30/21 at 1400, Until Discontinued $ Given 11/06/2021 8:23 AM CDT 5 mg $ Given 11/05/2021 9:52 PM CDT 5 mg $ Given 11/05/2021 2:03 PM CDT 5 mg oxyCODONE (immediate release) (Roxicodone) tablet 10 mg 10 mg, Oral, EVERY 6 HOURS PRN, Severe Pain, Starting on 11/03/21 at 1113, Until 11/06/21 at 1518, Patient preference for lesser PRN pain meds may be honored when the patient requests a less strong medication, a lower dose, or a less intrusive route of administration when the lesser drug, dose and route have been ordered for the patient. This patient request must be documented in the MAR. $ Given 11/06/2021 9:13 AM CDT 10 mg $ Given 11/06/2021 3:08 AM CDT 10 mg $ Given 11/05/2021 5:02 PM CDT 10 mg oxyCODONE-acetaminophen (Percocet) 5-325 MG tablet 1 tablet 1 tablet, Oral, EVERY 4 HOURS PRN, Moderate Pain, Starting on 10/31/21 at 2135, Until Mon11/03/21 at 1114, Patient preference for lesser PRN pain meds may be honored when the patient requests a less strong medication, a lower dose, or a less intrusive route of administration when the lesser drug, dose and route have been ordered for the patient. This patient request must be documented in the MAR. $ Given 11/03/2021 9:24 AM CDT 1 tablet $ Given 11/02/2021 3:11 PM CDT 1 tablet $ Given 11/01/2021 12:38 PM CDT 1 tablet oxyCODONE-acetaminophen (Percocet) 5-325 MG tablet 2 tablet 2 tablet, Oral, EVERY 4 HOURS PRN, Severe Pain, Starting on 10/31/21 at 2135, Until 11/03/21 at 1114, Patient preference for lesser PRN pain meds may be honored when the patient requests a less strong medication, a lower dose, or a less intrusive route of administration when the lesser drug, dose and route have been ordered for the patient. This patient request must be documented in the MAR. $ Given 11/02/2021 8:31 PM CDT 2 tablets $ Given 11/02/2021 6:37 AM CDT 2 tablets $ Given 11/01/2021 8:49 PM CDT 2 tablets polyethylene glycol 3350 (Miralax) packet 17 g 17 g, Oral, DAILY PRN, Constipation, Starting on 11/02/21 at 1729, Until 11/06/21 at 1518, Mix in 8 ounces of water, juice, soda, coffee or tea prior to administration rOPINIRole (Requip) tablet 5 mg 5 mg, Oral, AT BEDTIME, First dose on 10/30/21 at 2100, Until Discontinued $ Given 11/05/2021 9:52 PM CDT 5 mg $ Given 11/04/2021 9:19 PM CDT 5 mg $ Given 11/03/2021 10:08 PM CDT 5 mg simethicone (Mylicon) chew tablet 80 mg 80 mg, Oral, 4 TIMES DAILY PRN, Gas Pain, Starting on Mon11/02/21 at 1729, Until 11/06/21 at 1518 sodium phosphate rectal ([place]) enema 133 mL 133 mL (1 enema), Rectal, DAILY PRN, Constipation, Starting on Mon11/02/21 at 1729, Until 11/06/21 at 1518 throat lozenge 1 lozenge 1 lozenge, Oral, EVERY 2 HOURS PRN, Sore Throat, Starting on e 11/02/21 at 1729, Until 11/06/21 at 1518 vancomycin (Vancocin) 1,500 mg in 500 mL NaCl IVPB 1,500 mg, at 333.33 mL/hr, Intravenous, EVERY 12 HOURS, First dose on 10/30/21 at 0600, Until Discontinued, Indication for anti-infective therapy: Documented infection, Site of anti-infective therapy: Wound, Other, Other site of infection (free text): Sepsis 2/2 laminectomy wound $ New Bag/Syringe 10/31/2021 10:16 AM CDT 1,500 mg 333.33 mL/hr $ New Bag/Syringe 10/30/2021 10:24 PM CDT 1,500 mg 333.3 3 mL/hr $ New Bag/Syringe 10/30/2021 11:32 AM CDT 1,500 mg 333.3 3 mL/hr vancomycin (Vancocin) 1,750 mg in 500 mL NaCl IVPB 1,750 mg, at 285.71 mL/hr, Intravenous, EVERY 12 HOURS, First dose on 11/01/21 at 0000, Until Discontinued, Indication for anti-infective therapy: Documented infection, Site of anti-infective therapy: Wound, Skin/soft tissue $ New Bag/Syringe 11/02/2021 12:20 AM CDT 1,750 mg 285.71 mL/hr $ New Bag/Syringe 11/01/2021 1:12 PM CDT 1,750 mg 285.71 mL/hr $ New Bag/Syringe 10/31/2021 11:56 PM CDT 1,750 mg 285.7 1 mL/hr documented in this encounter Active and Recently Administered Medications Times are shown in CDT. Scheduled Medication Order 11/04/2021 11/05/2021 11/06/2021 0.9% NaCl injection 3 mL(Linked Group 1) 3 mL, Intracatheter, EVERY 8 HOURS, First dose on 10/30/21 at 1445, Until Discontinued, Flush peripheral IV catheter with 3 mL of normal saline every 8 hours., Pre-op 0419 ($ Given - Provider: Marimar English RN)1354 (Not Administered - Provider: Aruna Boyd RN - Reason: See Comments)2117 ($ Given - Provider: Marimar English RN) 0551 ($ Given - Provider: Marimar English RN)1210 ($ Given - Provider: Kaylie Morgan RN)2152 ($ Given - Provider: Marimar English RN) 0654 ($ Given - Provider: Marimar English RN)1400 (Due) acetaminophen (Tylenol) tablet 650 mg 650 mg, Oral, EVERY 6 HOURS, First dose on Mon11/03/21 at 1145, Until Discontinued, Patient preference for lesser PRN pain meds may be honored when the patient requests a less strong medication, a lower dose, or a less intrusive route of administration when the lesser drug, dose and route have been ordered for the patient. This patient request must be documented in the MAR. 0033 (Not Administered - Provider: Marimar English RN - Reason: Refused-Patient)0418 ($ Given - Provider: Marimar English RN)1123 ($ Given - Provider: Ashleigh Ontiveros RN)1719 ($ Given - Provider: Ashleigh Ontiveros RN)2334 (Not Administered - Provider: Marimar English RN - Reason: Patient sleeping) 0551 ($ Given - Provider: Marimar English RN)1202 ($ Given - Provider: Kaylie Morgan, NURIS)1702 ($ Given - Provider: Kaylie Morgan RN)1942 (Not Administered - Provider: Marimar Enlgish RN - Reason: See Comments) 0004 (Not Administered - Provider: Marimar English RN - Reason: Patient sleeping)0652 ($ Given - Provider: Marimar English RN)1152 ($ Given - Provider: Ashleigh Ontiveros RN) amitriptyline (Elavil) tablet 25 mg 25 mg, Oral, AT BEDTIME, First dose on Mon10/30/21 at 2100, Until Discontinued 2117 ($ Given - Provider: Marimar English RN) 215 ($ Given - Provider: Marimar English RN) ertapenem (INVanz) 1,000 mg in 0.9% NaCl IV 50 mL IVPB 1,000 mg (1 g), at 100 mL/hr, Intravenous, EVERY 24 HOURS, First dose on Mon11/02/21 at 1130, Until Discontinued, Indication for anti-infective therapy: Documented infection, Site of anti-infective therapy: Wound, Skin/soft tissue 1126 ($ New Bag/Syringe - Provider: Ashleigh Ontiveros RN)1215 (Stopped - Provider: Ashleigh Ontiveros RN) 1202 ($ New Bag/Syringe - Provider: Kaylie Morgan RN)1232 (Stopped - Provider: Kaylie Morgan RN) 1154 ($ New Bag/Syringe - Provider: Ashleigh Ontiveros RN)1224 (Due: Stopped - Provider: Ashleigh Ontiveros RN) exemestane (Aromasin) tablet 25 mg 25 mg, Oral, DAILY, First dose on Mon10/30/21 at 1200, Until Discontinued 0815 ($ Given - Provider: Ashleigh Ontiveros RN) 0830 ($ Given - Provider: Kaylie Morgan RN) 0823 ($ Given - Provider: Ashleigh Ontiveros RN) gabapentin (Neurontin) capsule 300 mg 300 mg, Oral, 3 TIMES DAILY, First dose on Mon11/01/21 at 0000, Until Discontinued 0816 ($ Given - Provider: Ashleigh Ontiveros RN)1353 ($ Given - Provider: Aruna Boyd RN)2118 ($ Given - Provider: Marimar English RN) 0829 ($ Given - Provider: Kaylie Morgan RN)1403 ($ Given - Provider: Kaylie Morgan RN)2152 ($ Given - Provider: Marimar English RN) 0823 ($ Given - Provider: Ashleigh Ontiveros RN)1400 (Due) heparin injection 5,000 Units 5,000 Units, Subcutaneous, EVERY 8 HOURS, First dose on Mon10/30/21 at 2200, Until Discontinued 0639 ($ Given - Provider: Marimar English RN)1353 ($ Given - Provider: Aruna Boyd RN)2117 ($ Given - Provider: Marimar English RN) 0551 ($ Given - Provider: Marimar English RN)1403 ($ Given - Provider: Kaylie Morgan RN)215 ($ Given - Provider: Marimar English RN) 0652 ($ Given - Provider: Marimar English RN)1400 (Due) insulin glargine (Lantus) vial 19 Units 19 Units (rounded from 19.395 Units = 0.15 Units/kg ? 129.3 kg), Subcutaneous, AT BEDTIME, First dose on Mon11/01/21 at 2100, Until Discontinued, DO NOT HOLD EVEN IF PATIENT IS NPO . WASTE DISPOSAL INSTRUCTIONS: Black Bin Disposal required. 2117 ($ Given - Provider: Marimar English RN) 2150 ($ Given - Provider: Marimar English RN) insulin lispro (HumaLOG;ADMelog) 100 UNIT/ML pen 0-6 Units 0-6 Units, Subcutaneous, 3 TIMES DAILY WITH MEALS, First dose on Mon10/31/21 at 1800, Until Discontinued, DO NOT HOLD CORRECTION BOLUS [...] = give 6 units and notify physician 0816 ($ Given - Provider: Ashleigh Ontiveros RN)1130 ($ Given - Provider: Ashleigh Ontiveros RN)1703 (Not Administered - Provider: Ashleigh Ontiveros RN - Reason: Per Administration Instructions) 0830 ($ Given - Provider: Kaylie Morgan RN)1210 ($ Given - Provider: Kaylie Morgan RN)1701 ($ Given - Provider: Kaylie Morgan RN) 0823 ($ Given - Provider: Ashleigh Ontiveros RN)1200 (Due) nystatin (Mycostatin) suspension 5 mL 5 mL, Swish and Spit, 4 TIMES DAILY, First dose on Mon11/03/21 at 1700, Until Discontinued, Swish in mouth as long as possible. Shake well prior to administration. 0815 ($ Given - Provider: Ashleigh Ontiveros RN)1300 (Not Administered - Provider: Ashleigh Ontiveros RN - Reason: Medication not available)1719 ($ Given - Provider: Ashleigh Ontiveros RN)2119 ($ Given - Provider: Marimar English RN) 0829 ($ Given - Provider: Kaylie Morgan RN)1202 ($ Given - Provider: Kaylie Morgan RN)1705 ($ Given - Provider: Kaylie Morgan RN)2152 ($ Given - Provider: Marimar English, NURIS) 0823 ($ Given - Provider: Ashleigh Ontiveros RN)1300 (Due) oxybutynin (Ditropan) tablet 5 mg 5 mg, Oral, 3 TIMES DAILY, First dose on Mon10/30/21 at 1400, Until Discontinued 0816 ($ Given - Provider: Ashleigh Ontiveros RN)1353 ($ Given - Provider: Aruna Boyd RN)2118 ($ Given - Provider: Marimar English RN) 0829 ($ Given - Provider: Kaylie Morgan RN)1403 ($ Given - Provider: Kaylie Morgan, RN)2152 ($ Given - Provider: Marimar English RN) 0823 ($ Given - Provider: Ashleigh Ontiveros RN)1400 (Due) rOPINIRole (Requip) tablet 5 mg 5 mg, Oral, AT BEDTIME, First dose on 10/30/21 at 2100, Until Discontinued 2118 ($ Given - Provider: Marimar English RN) 2151 ($ Given - Provider: Marimar English RN) PRN Medication Order 11/04/2021 11/05/2021 11/06/2021 0.9% NaCl injection 1-10 mL(Linked Group 1) 1-10 mL, Intracatheter, PRN, Other, peripheral line flush, Starting on 10/30/21 at 1437, Until 11/06/21 at 1518, Flush peripheral IV catheter with 1-10 mL of normal saline before and after medications and prn to clear blood from the line or to verify patency., Pre-op 0652 ($ Given - Provider: Marimar English RN) bisacodyl (Dulcolax) suppository 10 mg 10 mg, Rectal, DAILY PRN, Constipation, Starting on 11/02/21 at 1729, Until 11/06/21 at 1518 calcium carbonate (Tums) chew tablet 1 tablet 1 tablet, Oral, EVERY 4 HOURS PRN, Heartburn, GI Upset, Starting on e 11/02/21 at 1729, Until 11/06/21 at 1518 cyclobenzaprine (Flexeril) tablet 10 mg 10 mg, Oral, 3 TIMES DAILY PRN, Muscle Spasms, Starting on Mon10/31/21 at 2358, Until 11/06/21 at 1518 1123 ($ Given - Provider: Ashleigh Ontiveros RN) 1021 ($ Given - Provider: Kaylie Morgan RN)1702 ($ Given - Provider: Kaylie Morgan RN) 0652 ($ Given - Provider: Marimar English RN) dextrose IV 12.5 g(Linked Group 2) 12.5 g, Intravenous, PRN, Other, Bedside Glucose less than 70 mg/dL -If NOT able to eat and/or NPO and with IV Access, Starting on 10/30/21 at 1129, Until 11/06/21 at 1518, If NOT able to eat and/or NPO [...] HYPOGLYCEMIC EVENT. dextrose IV 25 g(Linked Group 2) 25 g, Intravenous, PRN, Other, Bedside Glucose less than 70 mg/dL -If NOT able to eat and/or NPO and with IV Access, Starting on 10/30/21 at 1129, Until 11/06/21 at 1518, If NOT able to eat and/or NPO [...] 80 mg/dl. NOTIFY PROVIDER OF HYPOGLYCEMIC EVENT. diphenhydrAMINE (Benadryl) capsule 25 mg 25 mg, Oral, EVERY 6 HOURS PRN, Itching, Allergies, Insomnia, Starting on Tu11/02/21 at 1729, Until 11/06/21 at 1518 glucagon (Glucagen) injection 1 mg 1 mg, Intramuscular, PRN, Bedside Glucose less than 70 mg/dL - If NOT able to eat and/or NPO and withOUT IV Access, Starting on 10/30/21 at 1129, Until 11/06/21 at 1518, If NOT able to eat and/or NPO [...] does not have swallowing difficulties, Starting on 10/30/21 at 1129, Until 11/06/21 at 1518, If able to eat and can swallow [...] does not have swallowing difficulties, Starting on 10/30/21 at 1129, Until 11/06/21 at 1518, If able to eat and is better [...] does not have swallowing difficulties, Starting on 10/30/21 at 1129, Until 11/06/21 at 1518, If able to eat and does not [...] 80 mg/dl. NOTIFY PROVIDER OF HYPOGLYCEMIC EVENT. heparinized saline 2 units/ml infusion (COMPLETED) Other, CONTINUOUS PRN, Starting on Mon11/05/21 at 1430, Until Mon11/05/21 at 1431 1430 ($ New Bag/Syringe - Provider: Justen Valencia, RT(R) - Comment: To table)1431 (Stopped - Provider: Heaven Berrios RN) HYDROmorphone (Dilaudid) injection 0.2 mg 0.2 mg, Intravenous, EVERY 4 HOURS PRN, Breakthrough pain or if unable to take PO, Starting on 10/31/21 at 2136, Until 11/06/21 at 1518, Patient preference for lesser PRN pain meds may be honored when the patient requests a less strong medication, a lower dose, or a less intrusive route of administration when the lesser drug, dose and route have been ordered for the patient. This patient request must be documented in the MAR. 1403 ($ Given - Provider: Kaylie Morgan RN)1941 ($ Given - Provider: Marimar English RN) lidocaine (Xylocaine) 1 % injection (COMPLETED) Subcutaneous, ONCE PRN, Starting on Mon11/05/21 at 1438, Until Mon11/05/21 at 1438 1438 ($ Given - Provider: Jovi Goode MD) melatonin tablet 3 mg 3 mg, Oral, AT BEDTIME PRN, Insomnia, Starting on Mon11/02/21 at 1729, Until 11/06/21 at 1518 oxyCODONE (immediate release) (Roxicodone) tablet 10 mg 10 mg, Oral, EVERY 6 HOURS PRN, Severe Pain, Starting on Mon11/03/21 at 1113, Until 11/06/21 at 1518, Patient preference for lesser PRN pain meds may be honored when the patient requests a less strong medication, a lower dose, or a less intrusive route of administration when the lesser drug, dose and route have been ordered for the patient. This patient request must be documented in the MAR. 0417 ($ Given - Provider: Marimar English RN)1043 ($ Given - Provider: Aruna Boyd RN) 0223 ($ Given - Provider: Marimar English RN)1021 ($ Given - Provider: Kaylie Morgan RN)1702 ($ Given - Provider: Kaylie Morgan RN) 0308 ($ Given - Provider: Marimar English RN)0913 ($ Given - Provider: Ashleigh Ontiveros, NURIS) polyethylene glycol 3350 (Miralax) packet 17 g 17 g, Oral, DAILY PRN, Constipation, Starting on Mon11/02/21 at 1729, Until 11/06/21 at 1518, Mix in 8 ounces of water, juice, soda, coffee or tea prior to administration simethicone (Mylicon) chew tablet 80 mg 80 mg, Oral, 4 TIMES DAILY PRN, Gas Pain, Starting on Mon11/02/21 at 1729, Until 11/06/21 at 1518 sodium phosphate rectal (Fleet) enema 133 mL 133 mL (1 enema), Rectal, DAILY PRN, Constipation, Starting on Mon11/02/21 at 1729, Until 11/06/21 at 1518 throat lozenge 1 lozenge 1 lozenge, Oral, EVERY 2 HOURS PRN, Sore Throat, Starting on Mon11/02/21 at 1729, Until 11/06/21 at 1518 Linked Groups Order Group 1: SALINE LOCK, INSERT AND MAINTAIN (CANCELED) Routine, CONTINUOUS, Starting on 10/30/21 at 1445, Until Specified, Pre-op, New collection And 0.9% NaCl injection 3 mLJump to med 3 mL, Intracatheter, EVERY 8 HOURS, First dose on Mon10/30/21 at 1445, Until Discontinued, Flush peripheral IV catheter with 3 mL of normal saline every 8 hours., Pre-op And 0.9% NaCl injection 1-10 mLJump to med 1-10 mL, Intracatheter, PRN, Other, peripheral line flush, Starting on Mon10/30/21 at 1437, Until 11/06/21 at 1518, Flush peripheral IV catheter with 1-10 mL of normal saline before and after medications and prn to clear blood from the line or to verify patency., Pre-op Group 2: dextrose IV 12.5 gJump to med 12.5 g, Intravenous, PRN, Other, Bedside Glucose less than 70 mg/dL -If NOT able to eat and/or NPO and with IV Access, Starting on Mon10/30/21 at 1129, Until 11/06/21 at 1518, If NOT able to eat and/or NPO [...] NPO and with IV Access, Starting on 10/30/21 at 1129, Until 11/06/21 at 1518, If NOT able to eat and/or NPO [...] EVENT. documented in this encounter Care Teams Gyn Relationship Specialty Start Date End Date Justen Gale MD PCP - General 07/05/21 documented as of this encounter
--- OUTSIDE RECORDS SUMMARY | 2024-04-26 02:33 | XMS_ITS | Encounter Summary ---
Author Organization [facility] Address [address] [place] [address] Care Team Providers Care International Manager Name Role Phone Justen Gale MD Primary Care Provider [phone] Reason for Visit * Reason Onset Date Comments Transitions Of Care 11/08/2021 Encounter Details Date Type Department Care Team (Late st Contact Info) Description 11/08/2021 Telephone [facility] CARE COORDINATION [address] [place] [id number] Bianca Daugherty, RN Transitions Of Care Social [...] No 10/30/2021 documented as of this encounter Miscellaneous Notes * Telephone Encounter - Bianca Daugherty RN - 11/08/2021 1:51 PM CDT Transition Logistics Project Manager(TCC) 1-2 week post discharge follow-up contact by telephone: Patient with recent IP discharge from [facility] on 11/06/21. TCC attempted to reach Karly Marques today by telephone ([phone]) to complete 1-2 week post discharge follow-up contact. TCC was unable to reach Karly Marques at this time and TCC left voicemessage. TCC encouraged Karlyqueenie Marques in the voice message to call this creative services writer back when available to provide update since last follow-up contact. TCC will await call back from Karly Marques. TCCwill continue to follow Patient for 30 days post-discharge with target end date of transition care program and intervention(s) set for 12/06/21. No immediate follow-up needs are identified pending contact from Karly Marques. Call Duration: 1 minute Bianca Daugherty RN, BSN Transition Logistics Project Manager Office: [phone] 11/08/2021 documented in this encounter Plan of Treatment Not on file documented as of this encounter Visit Diagnoses Not on filedocumented in this encounter Care Teams International Manager Relationship Specialty Start Date End Date Justen Gale MD PCP - General 07/05/21 documented as of this encounter
--- OUTSIDE RECORDS SUMMARY | 2024-04-26 02:33 | XMS_ITS | Encounter Summary ---
Author Organization [facility] Operating Analytics Address [address] [facility] [place] [address] Care Team Providers Care Pneumatic Riveter Name Role Phone Justen Gale MD Primary Care Provider [phone] Reason for Visit * Reason Comments WOUND INFECTION Patient a transfer f [facility] for neurosurgical stimulator complications and wound infection to right buttocks stage 1. POST-OP PROBLEM * Auth/Cert Specialty Diagnoses / Procedures Referred By Elyssa benavides Referred To Contact Referral ID Status Reason Start Date Expiration Date Visits Re quested Visits Authorized [id number] 1 1 Encounter Details Date Type Department Care Team (Late st Contact Info) Description 10/30/2021 3:15 PM CDT - 10/30/2021 6:50 PM CDT Surgery [facility] [address] [place] [address] Maxi Gregg MD [address] [facility] [address] [facility] [address] REMOVAL OF INFECTED SPINAL CORD STIMULATOR BATTERY AND PADDLE LEAD-LEVEL 4 @ 1113 Surgery Details Date/Time Status Location OR Service Patient Class Case Class Case Type Trauma Case? 10/30/2021 3:15 PM Posted [facility] OR OR 15 Neurosurgery Inpatient Level 4 Panel 1 Procedure LRB Anes Op Region Wound Class Comments REMOVAL OF INFECTED SPINAL CORD STIMULATOR BATTERY AND PADDLE LEAD-LEVEL 4 @ 1115 N/A General w/ Adductor Canal Block Back Dirty or Infected Surgeon Surgeon Role Service Panel Maxi Gregg MD Primary Neurosurgery 1 Genaro Candelario MD Resident - Assisting Neurosu rgery 1 Special Needs PRONELEVEL 4 @ 1115 DL documented in this encounter Social History Tobacco [...] Sign Reading Time Taken Comments Blood Pressure 134/82 10/30/2021 6:24 PM CDT Pulse 88 10/30/2021 6:24 PM CDT Temperature 36.7 ??C (98.1 ??F) 10/30/2021 6:24 PM CD T Respiratory Rate 13 10/30/2021 6:05 PM CDT Oxygen Saturation 97% 10/30/2021 6:24 PM CDT Inhaled Oxygen Concentration - - Weight 129.3 kg (285 lb) 10/30/2021 3:10 [...] Physician Discharge Summary Patient ID: Mohsen Marques [id number] 66 year old 1955 Admit date: 10/30/2021 [...] you were sent home on please call [phone], and ask for the Neurosurgery resident front end driver. Do not sign important papers or make [...] clinic appointment information call Shaun Larkin at [phone]. - Also, you can call Outpatient Cultural Anthropology Professor at [phone]. 2) Please see Dr. Rodriguez (infectious disease) on 12/06 for follow-up of your infection. Your appointmenthas already been scheduled. - Please make time to come to the [facility] outpatient laboratory once every week to have [...] any questions about these instructions please call: [phone], ask for the Neurosurgery resident front end driver. This list of medications is preliminary and [...] Specialty: Family Medicine Relationship: PCP - General [facility] [address] Next Steps: Follow up Instructions: After discharge Maxi Gregg MD Specialty: Neurological Surgery [address] OF NEUROSURGERY [facility] [address] Next Steps: Follow up Instructions: Please follow-up with Dr. Gregg in 1-2 weeks for suture removal. You will be contacted about your appointment Jazmyne Torres MD Specialty: Infectious Disease [address] [place] [phone] Next Steps: Follow up Instructions: Please follow-up with Dr. Rodriguez in infectious disease on 12/06/21. Your appointment has already been scheduled. Contact information for after-discharge [facility] Service: Home Health Services [address] [place] [address] [facility] HOME CARE INTAKE Service: Home Health Services [address] [facility] [address] Ramon Jacobs MD 11/06/2021 10:49 AM documented [...] you were sent home on please call [phone], and ask for the Neurosurgery resident front end driver. Do not sign important papers or make [...] removal - For clinic appointment information call Normashannan Mccraryclaudia at [phone]. - Also, you can call Outpatient Cultural Anthropology Professor at [phone]. 2) Please see Dr. Rodriguez (infectious disease) on 12/06 for follow-up of your infection. Your appointmenthas already been scheduled. - Please make time to come to the [facility] outpatient laboratory once every week to have [...] any questions about these instructions please call: [phone], ask for the Neurosurgery resident front end driver. documented in this encounter Medications at Time [...] Ross - 11/06/2021 2:13 PM CDT Discharge Cultural Anthropology Professor received request from Dr. Soraida Jacobs to reschedule follow up appointment for Patient with Neurosurgery. This flex o writer operator called [phone] and spoke with Abiola. Cultural Anthropology Professor was able to obtain follow-up appointment for Patient with APPAREL DESIGNER Dasia Mendoza on Monday November 15, 2021 at 4:00 pm. No further follow-up needs from ground wirer indicated at this time. Shanthi Ross, Discharge Cultural Anthropology Professor 11/08/2021 * Ashleigh Ontiveros RN - 11/06/2021 [...] questions, please contact the outpatient pharmacy at [phone]. Camila Varela PharmD [facility] at [address], First Floor [place], [place] [address] Hours of Operation Monday - Monday: 8:00am to 6:00pm Monday: 9:00am to 1:00pm Epic: [facility] *Ensure the patient and clinic's nearby ZIP codes box is unchecked* * Ashleigh Ontiveros RN - 11/06/2021 12:09 PM CDT Pt up in chair * Yeni Rivera RN - 11/06/2021 12:00 PM CDT Discharge Date: 11/06/21 Transportation at time of Discharge: Family Family Member who will transport: Yunior Velez Daughter ? [phone] Ambulance Arranged: n/a Home Health Care Accepting Agency: [facility]. Call to confirm [facility]. Agreed. Phone Number for Home Health Care Agency: [facility] Iv atb: [facility]: [phone] Date Services to begin: 11/10/21 Comments: Yeni Rivera Rn BSN [facility] Supervisor Cap And Hat ProductionRemnants Cutter: [phone] 11/06/2021 * Ramon Jacobs MD - 11/06/2021 11:51 AM CDT PAIGE drain removal note The drain exit site was cleaned with alcohol pad. Stitch was cut around the right back drain, whichwas then pulled out without any issues. A single, interrupted stitch with 3-0 monocryl was placed to close the drain exit site. Ramon Jacobs MD 11/06/2021 11:53 AM * Ramno Jacobs MD - 11/06/2021 9:29 AM CDT [...] root column stimulator placement on 09/16/21??presenting to [facility] on??10/30/2021??with worseningpain around right lumbar battery site, [...] recent surgery. Patient is on VTE prophylaxis. FL and PE very unlikely Plan: #postoperative wound [...] at week 2 (11/16). Please fax results [phone] (ID clinic: Dr. Augusto Torres). - Will [...] Progressing Pt got PICC line placed for maintenance superintendent abt with HH, pt c/o new onset [...] root column stimulator placement on 09/16/21??presenting to [facility] on??10/30/2021??with worseningpain around right lumbar battery site, [...] at week 2 (11/16). Please fax results [phone] (ID clinic: Dr. Augusto Torres). - Will [...] Polk, PT - 11/05/2021 9:54 AM CDT [facility] Physical Medicine and Rehabilitation Physical Therapy Progress Note Patient: Mohsen Marques Med Record Number: [id number] Date of : 1955 Age: [age] year [...] Sit to Stand: Stand By Assist to NM. Gait: Weight Bearing Status: (WBAT) Distance Ambulated: [...] ascend/descent 2 steps with stand by assist Mitigation Supervisor Goal(s): Patient to be independent with functional [...] bed, with call light within reach, with Kaylie LAWLER aware, all lines intact. * Theresa Aranda RN - 11/05/2021 9:16 AM CDT CM spoke with Keyur Arguello, and teaching has been completed with pt. [facility] SOC is Monday,11/06/21. Pending PICC placement. Ok to discharge after PICC and dose of Ertapenam today if medically ready. Team notified. Theresa Aranda RN [phone] Care Coordination Nurse Supervisor Cap And Hat Production * Marimar English RN - 11/04/2021 10:33 PM CDT Problem: Pain/Discomfort Goal: Patient exhibits reduced pain/discomfort as evidenced by pain scores Outcome: Progressing Goal: Patient uses pharmacological and non-pharmacological pain management strategies. Outcome: Progressing Goal: Patient verbalizes acceptable level of pain relief and ability to engage in desired activity. Outcome: Progressing * Lisa Neil PT - 11/04/2021 2:02 PM CDT [facility] Physical Medicine and Rehabilitation Physical Therapy Progress Note Patient: Mohsen Marques Med Record Number: [id number] Date of : 1955 Age: [age] year [...] Appearance: 66 y/o female in bed in NAD LDAs: IV's: Peripheral line Mental Status/Cognition: Orientation [...] will ascend/descent??2??steps with stand by assist ?? Mitigation Supervisor Goal(s): Patient to be independent with functional [...] with call light within reach, with RN, Lina aware. * Ramon Jacobs MD - 11/04/2021 6:44 AM CDT [facility] Neurosurgery Daily Progress Note Mohsen Marques, 66 year old, female : 1955 CSN: [id number] Primary Care Physician: Justen Gale MD - [...] column stimulator placement on 09/16/21 presenting to [facility] on 10/30/2021 with worsening pain around [...] week 2 (11/16). Please fax results to [phone] (ID clinic: Dr. Augusto Torres). - Will [...] 11/03/2021 3:37 PM CDT VIDHI spoke with Keyur Arguello, and teaching has been completed with pt. [facility] SOC is 11/05/21. Discharge pending PICC line and dose of Ertapenam tomorrow, 11/04/21. Theresa Aranda RN [phone] Care Coordination Nurse Supervisor Cap And Hat Production * Wilian Navarro RN - 11/03/2021 11:08 [...] abort case related to pain, * Isamar Polk, PT - 11/03/2021 10:50 AM CDT [facility] Department of Physical Medicine & Rehabilitation Progress Note Patient: Mohsen Marques Med Record Number: [id number] Date of : 1955 Age: [age] year old 11/03/21 1050 Missed Visit Missed Visit Procedure Off Floor Patient off the floor (PICC line) Pt off floor for PICC line. Will attempt back as schedule allows. * Ramon Jacobs MD - 11/03/2021 9:22 AM CDT U Neurosurgery Daily Progress Note Mohsen Marques, 66 year old, female : 1955 CSN: [id number] Primary Care Physician: Justen Gale MD - [...] column stimulator placement on 09/16/21 presenting to [facility] on 10/30/2021 with worsening pain around right [...] week 2 (11/16). Please fax results to [phone] (ID clinic: Dr. Augusto Torres). - Will [...] 5. PT/OT: ordered 6. Pain Control Ramon Jacosb MD 11/03/2021 9:22 AM * Shasha Schaefer [...] Polk, PT - 11/02/2021 10:50 AM CDT [facility] Physical Medicine and Rehabilitation Physical Therapy Progress Note Patient: Mohsen Marques Med Record Number: [id number] Date of : 1955 Age: [age] year [...] Sit to Stand: Stand By Assist to NM. Gait: Weight Bearing Status: (WBAT) Distance Ambulated: [...] ascend/descent 2 steps with stand by assist Usp Goal(s): Patient to be independent with functional [...] Jacobs MD - 11/02/2021 9:29 AM CDT [facility] Neurosurgery Daily Progress Note Mohsen Marques, 66 year old, female : 1955 CSN: [id number] Primary Care Physician: Justen Gale MD - [...] Strength is full bilaterally. Deltoid Bicep Tricep Town Administrator Wrist Ext Finger ext Hip Flexor Quad [...] column stimulator placement on 09/16/21 presenting to [facility] on 10/30/2021 with worsening pain around right [...] diff, and CMP. Please fax results to [phone] (ID clinic: Dr. Augusto Torres). - Will [...] Ramon Jacobs MD 11/02/2021 9:29 AM * PoJazmyne restrepo MD - 11/02/2021 9:00 AM CDT [facility] Infectious Diseases Progress Note Admitted on: 10/30/2021 [...] in the??right??lower lumbar region (09/16/2021), who??presented to [facility] on??10/30/2021??as transfer from OSH ([facility]) for further management of infected battery site of spinal stimulation system. ?? The patient received a dose of IV vancomycin roxane-op of surgery of placement of spinal stimulation system on 09/16/2021. She then developed rash to her back and ulcers in mouth around 09/19 and had ED visits x 2 for this, supportive care was given. A couple of weeks later she noted wound drainage in the battery site with increase in pain. She presented to [facility] ED again on 10/06, note [...] aztreonamwere given. She was then transferred to [facility] for neurosurgery evaluation and management. ?? Upon arrival to [facility], Tmax 99.1, VSS, leukocytosis WBC [...] Lines: LABS CBC: Recent Labs Component Name 10/31/21 1155 10/30/21209910/30/21 0533 04/20/17 0404 01/27/12 1157 WBC 18.5* 20.5* 20.5* - 8.8 RBC 4.19 4.07 4.28 - 4.71 HGB 12.2 12.0 12.5 - 13.2 HCT 38.2 37.2 39.8 - 41.6 MCV 91.2 91.4 93.0 - 88.3 PLT - - - - 330 - = values in this interval not displayed. BMP: Recent Labs Component Name 10/31/21 1155 10/30/21 2100 10/30/21 0533 04/20/17 0404 01/27/12 1157 NA 137 137 [...] and hypoplastic L5/S1 disc. 3. ??Advanced sacroiliitis. [id number]-[id number] pubic osteitis.??Mild spondylosis in the lumbar and [...] root column stimulator placement on 09/16/21??presenting to [facility] on??10/30/2021??with worseningpain and was found to have [...] for suppression plan. If no need for DEHYDRATOR TENDER penetration, can switch meropenem to ertapenem which [...] Arriaza OT - 11/01/2021 11:54 AM CDT [facility] Department of Physical Medicine & Rehabilitation Progress Note Patient: Mohsen Marques Med Record Number: [id number] Date of : 1955 Age: [age] year old New OT orders received & chart reviewed. Per OT evaluation & discharge on 10/31, was independent without skilled OT needs. Discussed with PT and RN and patient continues to be SBA/independent without OT needs. Plan: DC from OT caseload. * Isamar Polk, PT - 11/01/2021 9:34 AM CDT [facility] Physical Medicine and Rehabilitation Physical Therapy Progress Note Patient: Mohsen Marques Med Record Number: [id number] Date of : 1955 Age: [age] year [...] ascend/descent 2 steps with stand by assist Usp Goal(s): Patient to be independent with functional [...] follow. Anticipate home with IV ABX. Keyur Arguello, notified. Email sent to LISA Branch C. Prior Level of Functioning: Pt's daughter is her caregiver and helps with ADLs Lives with: Daughter Basic Needs Assessment (BNA) Score: 13 Readmission: no Met with patient Discharge Goals and Plans: Verify Family Support (name and phone): Extended Emergency Contact Information Primary Emergency Contact: Jimmie Marques Address: [address] [place] [address] [place] [address] Relation: Spouse Secondary Emergency Contact: Yunior Velez Mobile Relation: Daughter Patient or education courses sales representative requests care coordination reach out to [...] Resources Provided: Not offered to the patient Recreation Technician Referral: No If patient requires HHC at discharge, he/she requests: Will continue to follow. For any questions or needs please contact: Supervisor Cap And Hat Production Name/Phone number: Theresa Aranda RN [phone] * Ramon Jacobs MD - 11/01/2021 8:27 AM CDT U Neurosurgery Daily Progress Note Mohsen Marques, 66 year old, female : 1955 CSN: [id number] Primary Care Physician: Justen Gale MD - [...] Strength is full bilaterally. Deltoid Bicep Tricep Town Administrator Wrist Ext Finger ext Hip Flexor Quad [...] column stimulator placement on 09/16/21 presenting to [facility] on 10/30/2021 with worsening pain around right [...] well approximated Outcome: Progressing * Rosalinda Zaidi, [facility] - 10/31/2021 11:04 PM CDT Vancomycin Per [...] 13.6 - - - Vancomycin Administrations from JUN (last 72 hours) [...] monitor patient's renal function. Please contact the [facility] pharmacy department ([phone]) with any questions. Rosalinda Zaidi RPH 10/31/2021 11:02 PM Resources: Vancomycin Protocol * Riri Daugherty RN - 10/31/2021 3:41 PM CDT NURIS MOSHER attempted CART ATTENDANT unsuccessful. * Judi Alcantara OT - 10/31/2021 10:43 AM CDT [facility] Physical Medicine and Rehabilitation Occupational Therapy Initial Evaluation/Discharge Note Patient: Mohsen Marques Med Record Number: [id number] Date of : 1955 Age: [age] year [...] home now Who assists you at home?: Friends/Family;Toll Patrolman (Daughter is caregiver/choreworker) How often is assistance provided?: 14/11 Oxygen at Home: CPAP at night Vision: [...] Fair Activities of Daily Living Feeding: Complete [place] (to drink water from cup; hand to mouth intact in BUE) Oral Facial Hygiene: Activity Does Not Occur Bathing: Stand By Assist (to complete hand hygiene at sink) Upper Body Dressing: Stand By Assist (to manage gown during toileting) Lower Body Dressing: Maximal Assistance (pt requires assist for LB dressing at baseline) Toileting: Stand By Assist;Complete [place] (SBA for toilet transfer with bilateral grab [...] IP Occupational Therapy indicated at this time. Mitigation Supervisor Goal(s): Patient to be independent with functional [...] call light within reach, with RN, Damon aware. * Farzaneh Aranda PT - 10/31/2021 10:33 AM CDT [facility] Physical Medicine and Rehabilitation Physical Therapy Initial Evaluation Note Patient: Mohsen Marques Med Record Number: [id number] Date of : 1955 Age: [age] year [...] home now Who assists you at home?: Toll Patrolman;Friends/Family Oxygen at Home: CPAP at night Vision: [...] balance activities and monitoring of vitals Modified [place]: EDUCATION: While performing PT, Patient was instructed [...] ascend/descent 2 steps with stand by assist Usp Goal(s): Patient to be independent with functional [...] Cobb MD - 10/31/2021 8:51 AM CDT [facility] Neurosurgery Daily Progress Note Mohsen Marques, 66 year old, female : 1955 CSN: [id number] Primary Care Physician: Justen Gale MD - [...] Strength is full bilaterally. Deltoid Bicep Tricep Town Administrator Wrist Ext Finger ext Hip Flexor Quad [...] column stimulator placement on 09/16/21 presenting to [facility] on 10/30/2021 with worsening pain around [...] Sammy Cobb MD 10/31/2021 8:51 AM * uSmmer Howe RN - 10/30/2021 9:27 PM CDT [...] Cobb MD - 10/30/2021 9:15 PM CDT [facility] Neurosurgery Daily Progress Note Mohsen Marques, 66 year old, female : 1955 [facility]: [id number] Primary Care Physician: Justen Gale MD - [...] Strength is full bilaterally. Deltoid Bicep Tricep Town Administrator Wrist Ext Finger ext Hip Flexor Quad [...] column stimulator placement on 09/16/21 presenting to [facility] on 10/30/2021 with worsening pain around right [...] column stimulator placement on 09/16/21 presenting to [facility] on 10/30/2021 with worsening painaround right lumbar [...] demonstrated increased fat stranding. Patient transferred to [facility] for further care. Patient states she has [...] column stimulator placement on 09/16/21 presenting to [facility] on 10/30/2021 with worsening pain around rightlumbar [...] FOR TOMORROW. JULIO NUNES RN REFERRAL LIAISON [facility] HEALTH AT HOME * Tete Nunes RN - 11/01/2021 5:11 PM CDT HOME CARE REFERRAL RECEIVED FOR PATIENT & IS PROCESSING. [facility] HAS APPROVED PATIENT FOR A START OF CARE. THANK YOU FOR THIS REFERRAL. JULIO NUNES RN REFERRAL LIAISON [facility] AT HOME * Aminah Oneill MD - 10/31/2021 10:45 AM CDTAssociated Order(s): IP CONSULT TO INFECTIOUS DISEASES [facility] Infectious Diseases Consultation Patient Name: Mohsen Marques 1955 Room: [facility] Date of Admission: 10/30/2021 Date of Service: 10/31/2021 Primary Care Physician: Justen Gale MD Attending Physician: Maxi rGegg MD Reason for consultation: Infected battery site of spinal stimulation system HPI: Mohsen Marques is a 66 year old female with PMH of T2DM, HTN, CHF, PE/DVT on Xarelto, breast cancer s/p b/l mastectomy, chronic back pain s/p T8-T9 laminectomy for placement of dorsal column stimulation system and placement of the battery in the??right??lower lumbar region (09/16/2021), who presented to [facility] on 10/30/2021 as transfer from OSH ([facility]) for further management of infected battery site of spinal stimulation system. The patient received a dose of IV vancomycin roxane-op of surgery of placement of spinal stimulation system on 09/16/2021. She then developed rash to her back and ulcers in mouth around 09/19 and had ED visits x 2 for this, supportive care was given. A couple of weeks later she noted wound drainage in the battery site with increase in pain. She presented to [facility] ED again on 10/06, note [...] aztreonamwere given. She was then transferred to [facility] for neurosurgery evaluation and management. Upon arrival to [facility], Tmax 99.1, VSS, leukocytosis WBC [...] 33G MISC Use 4 times daily 03/09/21 Tyler Smith MD ONETOUCH ULTRA test strip [...] IV q8h (10/30 ) Prior Abx at [facility] N/A Prior Abx at OSH [...] drain Labs: CBC: Recent Labs Component Name 10/30/21209910/30/2153210/06/21144704/20/17 0404 01/27/12 1157 WBC 20.5* 20.5* 11.5* - 8.8 RBC 4.07 4.28 4.69 - 4.71 HGB 12.0 12.5 14.1 - 13.2 HCT 37.2 39.8 43.5 - 41.6 MCV 91.4 93.0 92.8 - 88.3 PLT - - - - 330 - = values in this interval not displayed. BMP: Recent Labs Component Name 10/30/21209910/30/2153210/06/21144704/20/17 0404 01/27/12 1157 NA 137 135* 138 [...] 0.68 mg/dL). LFTs: Recent Labs Component Name 10/30/21209910/30/2153210/06/21144709/23/215 04/20/17 0404 01/27/12 1157 ALKPHOS 74 77 [...] and hypoplastic L5/S1 disc. 3. ??Advanced sacroiliitis. Bzot-qo-cphxdnxp pubic osteitis.??Mild spondylosis in the lumbar and [...] team) Aminah Oneill M.D., PhD. Infectious Diseases (accounting software specialist) Pager [phone] documented in this encounter OR Notes * Brief Op Note - Eron Hill - 11/05/2021 3:02 PM CDT Vascular & Interventional Radiology Brief Post-Procedure Note Patient: Mohsen Marques Attending: Baudilio Hendrix MD Plunger Scoop Operator: Jovi Goode MD, [place] MS4 Diagnosis: Long-term access required for post-operation wound infection requiring long-term antibiotics Indication: Long-term IV antibiotics Procedure: Right upper extremity PICC placement Findings: Successful placement of a double lumen 5 Dominican x 39 cm power PICC via the [...] images in PACS. Associated attestation - Baudilio Hendrix MD - 11/05/2021 4:31 PM CDT Attending Physician Attestation: I agree with the medical student's note and was present throughoutthe entire procedure. - Baudilio Hendrix MD * Brief Op Note - Genaro [...] subcutaneous generator pocket Surgeon(s) and Role: * [place], [place] Alecio, MD - Primary * Genaro Candelario MD [...] CDT ?Operative Report ?? PATIENT NAME:??MOHSEN MARQUES ?MR#:?[id number] DATE OF :?10/30/2021? CSN:??[id number] ?? DATE OF ADMISSION: ??10/30/2021?INTRAOP DATE OF OPERATION: ??10/30/2021? PREOPERATIVE DIAGNOSIS: Infection in the battery site of spinal stimulation system ?? 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 PROCEDURE PERFORMED: Removal of battery in the right??lower lumbar region and irrigation of the wound. ?? SURGEON: Maxi Gregg M.D. ?? MOUNTED POLICE: Ronnie Mina MD ?ANESTHESIA: General anesthesia. ?? INTRAOPERATIVE BLOOD LOSS: 30??mL. ?? COMPLICATIONS: No intraoperative complications. ?? HARDWARE: [employer] DR ?? PROCEDURE: The patient under anesthesia [...] lab specimens being discontinued by physician. Per veterinary assistant technician, they will be discarded. * Yesi [...] per minute. No axis deviation is noted. MO interval within normal limits at 124 ms. [...] 4 mg (4 mg Intravenous $ Given 10/30/21536) ondansetron (disintegrating) (Zofran ODT) tablet 4 mg [...] at the site of the laminectomies at t7/[id number] is a 5.9 by 2.5 by 3.9 [...] intact. Report dictated by Alex Bradley MD (resident physician in radiology). I, Dr. TYLOR PENNINGTON have personally reviewed [...] Units (5,000 Units Subcutaneous $ Given 11/01/21 0628) insulin lispro (HumaLOG;ADMelog) 100 UNIT/ML pen 0-6 Units (2 Units Subcutaneous $ Given 10/31/21 1833) acetaminophen (Tylenol) tablet 650 mg (650 mg Oral $ Given 10/31/21 1723) oxyCODONE-acetaminophen (Percocet) 5-325 MG tablet 1 tablet (has no administration in time range) oxyCODONE-acetaminophen (Percocet) 5-325 MG tablet 2 tablet (2 tablets Oral $ Given 11/01/21 0632) HYDROmorphone (Dilaudid) injection 0.2 mg (0.2 mg [...] the patient. Clinical Impressions as of 11/01/21 0652 Preoperative examination S/P insertion of spinal cord [...] 3:09 AM CDT Patient a transfer from [facility] for neurosurgical stimulator complications and wound infection to right buttocks stage 1. * El Jefferson RN - 10/30/2021 3:06 AM CDT Bed: [facility] Expected date: Expected time: Means of arrival: Comments: [id number] [facility] tx 66 F/Infected spinal stimulator/VSS documented in [...] 10/30/2021 until 10/30/2021 GLUCOSE SCREEN - POCT (IP) [facility] Point of Care Testing STAT ONCE [...] AM CDT C-REACTIVE PROTEIN AM Draw 11/01/2021 1:22 AM CDT ERYTHROCYTE SEDIMENTATION RATE AM Draw [...] - 115 mg/dL 11/06/2021 11:39 AM CDT [facility] Specimen Type Arterial 11/06/2021 11:39 AM CDT [facility] Blood BLOOD SPECIMEN / Unknown 11/06/2021 11:34 AM CDT 11/06/2021 11:38 AM CDT Maxi Gregg MD LAB - POINT OF C ARE ORDERABLES [address] [address], [facility] [phone] * (ABNORMAL) GLUCOSE - POINT OF CARE (11/06/2021 7:40 AM CDT) Glucose WB/POC 152(H) 70 - 115 mg/dL 11/06/2021 7:45 AM CDT [facility] Specimen Type Cap Fingerstick 2021 7:45 AM CDT [facility] Blood BLOOD SPECIMEN / Unknown 11/06/2021 7:40 AM CDT 11/06/2021 7:45 AM CDT Maxi Gregg MD LAB - POINT OF C ARE ORDERABLES [address] [address], [place] [phone] * (ABNORMAL) GLUCOSE - POINT OF CARE (11/06/2021 3:09 AM CDT) Glucose WB/POC 172(H) 70 - 115 mg/dL 11/06/2021 3:13 AM CDT [facility] Specimen Type Cap Fingerstick 2021 3:13 AM CDT [facility] Blood BLOOD SPECIMEN / Unknown 11/06/2021 3:09 AM CDT 11/06/2021 3:13 AM CDT Maxi Gregg MD LAB - POINT OF ARE ORDERABLES [facility] [address] [place] [address], [place] [phone] * (ABNORMAL) GLUCOSE - POINT OF CARE (11/05/2021 8:10 PM CDT) Glucose WB/POC 171(H) 70 - 115 mg/dL 11/05/2021 8:15 PM CDT [facility] Specimen Type Cap Fingerstick 2021 8:15 PM CDT [facility] Blood BLOOD SPECIMEN / Unknown 11/05/2021 8:10 PM CDT 11/05/2021 8:14 PM CDT Maxi Gregg MD LAB - POINT OF ARE ORDERABLES [facility] [address] [place] [address], [place] [phone] * (ABNORMAL) GLUCOSE - POINT OF CARE (11/05/2021 5:00 PM CDT) Glucose WB/POC 180(H) 70 - 115 mg/dL 11/05/2021 5:05 PM CDT [facility] Specimen Type Cap Fingerstick 2021 5:05 PM CDT [facility] Blood BLOOD SPECIMEN / Unknown 11/05/2021 5:00 PM CDT 11/05/2021 5:05 PM CDT Maxi Gregg MD LAB - POINT OF C ARE ORDERABLES [facility] [address] [place] [address], [facility] [phone] * VAS BILATERAL VENOUS DUPLEX LE (11/05/2021 [...] Impression: Successful placement of 39 cm 5 Dominican dual-lumen power PICC via the right basilic vein with the tip at the cavo-atrial junction. Note: The catheter can be used now. Dr. Hendrix was present and performed/supervised the entire procedure. Dictated by Jovi Goode MD (resident physician in radiology) This report was approved ??by Jovi Goode ?? on 11/05/2021 3:06 PM . I, Dr. BAUDILIO HENDRIX have personally reviewed and interpreted this examination/study. This report was electronically signed by BAUDILIO HENDRIX ??on 11/12/2021 12:02 PM . Narrative 11/12/2021 12:02 PM CDT History: 66 year old female with postoperative infection requiring jail antibiotics. Operators: 1.Dr. Baudilio Hendrix, Attending Physician 2.Dr. Jovi Goode, Resident Physician [...] associated with the procedure. Procedure Note Baudilio Hendrix MD - 11/12/2021 History: 66 year old female with postoperative infection requiring jail antibiotics. Operators: 1.Dr. Baudilio Hendrix, Attending Physician 2.Dr. Jovi Goode, Resident Physician [...] Impression: Successful placement of 39 cm 5 [place] dual-lumen power PICC via the right basilic vein with the tip at the cavo-atrial junction. Note: The catheter can be used now. Dr. Hendrix was present and performed/supervised the entireprocedure. Dictated by Jovi Goode MD (resident physician in radiology) This report was approved by Jovi Goode on 11/05/2021 3:06 PM . I, Dr. BAUDILIO HENDRIX have personally reviewed and interpreted this examination/study. This report was electronically signed by BAUDILIO HENDRIX on11/12/2021 12:02 PM . Maxi Gregg MD IR ORDERABLES * TROPONIN I (11/05/2021 1:50 PM CDT) Troponin I <0.010 <0.032 ng/mL 11/05/2021 2:34 PM CDT [facility] Blood BLOOD SPECIMEN / Unknown Lab Venipuncture / Unknown 11/05/2021 1:50 PM CDT 11/05/2021 1:59 PM CDT Maxi Gregg MD LAB - CHEMISTRY ORDERABLES [address] [address], [facility] [phone] * (ABNORMAL) D-DIMER (11/05/2021 1:50 PM CDT) [facility] D-Dimer Quantitative 1.28(H) <=0.50 mcg/mL FEU 11/05/2021 2:26 PM CDT [facility] Comment: In the absence [...] Gregg MD LAB - COAGULATIO N ORDERABLES [facility] [address] [place] [address], [facility] [phone] * EKG 12-LEAD (11/05/2021 1:25 PM CDT) Ventricular Rate 87 BPM [facility] MUSE Atrial Rate 87 BPM [facility] MUSE P-R Interval 142 ms [facility] MUSE QRS Duration ms 80 ms [facility] MUSE Q-T Interval ms 362 ms [facility] MUSE QTC Calculation (Bezet) 435 ms [facility] MUSE Calculated P [place] 7 degrees SL MUSE Calculated R [place] 1 degrees [facility] MUSE Calculated T [place] 59 degrees [facility] MUSE Interpretation EKG NORMAL SINUS RHYTHM NORMAL ECG WHEN COMPARED WITH ECG OF 30-oct-2021 NO SIGNIFICANT CHANGE WAS FOUND Confirmed by MD RAIN, ALLY ([id number]) on 11/05/2021 4:06:44 PM [facility] MUSE 11/05/2021 1:25 PM CDT 11/05/2021 4:06 PM CDT Maxi Gregg MD ECG ORDERABLES Performing Organization Address City/[facility]/ZIP Co de Phone Number [facility] MUSE * (ABNORMAL) GLUCOSE - POINT OF CARE (11/05/2021 12:08 PM CDT) Glucose WB/POC 171(H) 70 - 115 mg/dL 11/05/2021 11:05 PM CDT [facility] Specimen Type Cap Fingerstick 2021 11:05 PM CDT [facility] Blood BLOOD SPECIMEN / Unknown 11/05/2021 12:08 PM CDT 11/05/2021 11:05 PM CDT Maxi Gregg MD LAB - POINT OF C ARE ORDERABLES [facility] [address] [place] [address], [facility] [phone] * (ABNORMAL) GLUCOSE - POINT OF CARE (11/05/2021 8:10 AM CDT) Glucose WB/POC 154(H) 70 - 115 mg/dL 11/05/2021 8:11 AM CDT [facility] Specimen Type Cap Fingerstick 2021 8:11 AM CDT [facility] Blood BLOOD SPECIMEN / Unknown 11/05/2021 8:10 AM CDT 11/05/2021 8:10 AM CDT Maxi Gregg MD LAB - POINT OF ARE ORDERABLES [facility] [address] [place] [address], [place] [phone] * (ABNORMAL) GLUCOSE - POINT OF CARE (11/05/2021 1:40 AM CDT) Glucose WB/POC 146(H) 70 - 115 mg/dL 11/05/2021 1:41 AM CDT [facility] Specimen Type Cap Fingerstick 2021 1:41 AM CDT [facility] Blood BLOOD SPECIMEN / Unknown 11/05/2021 1:40 AM CDT 11/05/2021 1:41 AM CDT Maxi Gregg MD LAB - POINT OF ARE ORDERABLES Performing Organization Address City/[facility]/ZIP Co de Phone Number [address] [address], [place] [phone] * (ABNORMAL) GLUCOSE - POINT OF CARE (11/04/2021 9:11 PM CDT) Glucose WB/POC 180(H) 70 - 115 mg/dL 11/04/2021 9:12 PM CDT [facility] Specimen Type Cap Fingerstick 2021 9:12 PM CDT [facility] Blood BLOOD SPECIMEN / Unknown 11/04/2021 9:11 PM CDT 11/04/2021 9:12 PM CDT Maxi Gregg MD LAB - POINT OF ARE ORDERABLES [address] [address], [place] [phone] * (ABNORMAL) GLUCOSE - POINT OF CARE (11/04/2021 5:02 PM CDT) Glucose WB/POC 132(H) 70 - 115 mg/dL 11/04/2021 5:06 PM CDT [facility] Specimen Type Arterial 11/04/2021 5:06 PM CDT [facility] Blood BLOOD SPECIMEN / Unknown 11/04/2021 5:02 PM CDT 11/04/2021 5:06 PM CDT Maxi Gregg MD LAB - POINT [facility] ARE ORDERABLES [facility] [address] [place] [address], [place] [phone] * (ABNORMAL) GLUCOSE - POINT OF CARE (11/04/2021 11:29 AM CDT) Glucose WB/POC 192(H) 70 - 115 mg/dL 11/04/2021 11:34 AM CDT [facility] Specimen Type Cap Fingerstick 2021 11:34 AM CDT [facility] Blood BLOOD SPECIMEN / Unknown 11/04/2021 11:29 AM CDT 11/04/2021 11:34 AM CDT Maxi Gregg MD LAB - POINT [facility] ARE ORDERABLES [address] [address], [place] [phone] * (ABNORMAL) GLUCOSE - POINT OF CARE (11/04/2021 7:56 AM CDT) Glucose WB/POC 178(H) 70 - 115 mg/dL 11/04/2021 8:01 AM CDT [facility] Specimen Type Arterial 11/04/2021 8:01 AM CDT [facility] Blood BLOOD SPECIMEN / Unknown 11/04/2021 7:56 AM CDT 11/04/2021 8:01 AM CDT Maxi Gregg MD LAB - POINT OF ARE ORDERABLES [facility] [address] [place] [address], [place] [phone] * (ABNORMAL) GLUCOSE - POINT OF CARE (11/04/2021 3:24 AM CDT) Glucose WB/POC 182(H) 70 - 115 mg/dL 11/04/2021 3:25 AM CDT [facility] Specimen Type Arterial 11/04/2021 3:25 AM CDT [facility] Blood BLOOD SPECIMEN / Unknown 11/04/2021 3:24 AM CDT 11/04/2021 3:25 AM CDT Maxi Gregg MD LAB - POINT [facility] ARE ORDERABLES Performing Organization Address City/[facility]/ZIP Co de Phone Number [address] [address], [place] [phone] * (ABNORMAL) GLUCOSE - POINT OF CARE (11/03/2021 8:30 PM CDT) Glucose WB/POC 209(H) 70 - 115 mg/dL 11/03/2021 8:31 PM CDT [facility] Specimen Type Arterial 11/03/2021 8:31 PM CDT [facility] Blood BLOOD SPECIMEN / Unknown 11/03/2021 8:30 PM CDT 11/03/2021 8:30 PM CDT Maxi Gregg MD LAB - POINT [facility] ARE ORDERABLES [facility] [address] [place] [address], [place] [phone] * (ABNORMAL) GLUCOSE - POINT OF CARE (11/03/2021 6:09 PM CDT) Glucose WB/POC 153(H) 70 - 115 mg/dL 11/03/2021 6:14 PM CDT [facility] Specimen Type Cap Fingerstick 2021 6:14 PM CDT [facility] Blood BLOOD SPECIMEN / Unknown 11/03/2021 6:09 PM CDT 11/03/2021 6:14 PM CDT Maxi Gregg MD LAB - POINT OF ARE ORDERABLES [facility] [address] [place] [address], [place] [phone] * (ABNORMAL) GLUCOSE - POINT OF CARE (11/03/2021 12:13 PM CDT) Glucose WB/POC 185(H) 70 - 115 mg/dL 11/03/2021 12:19 PM CDT [facility] Specimen Type Cap Fingerstick 2021 12:19 PM CDT [facility] Blood BLOOD SPECIMEN / Unknown 11/03/2021 12:13 PM CDT 11/03/2021 12:18 PM CDT Maxi Gregg MD LAB - POINT OF ARE ORDERABLES [address] [address], [place] [phone] * (ABNORMAL) GLUCOSE - POINT OF CARE (11/03/2021 8:17 AM CDT) Glucose WB/POC 154(H) 70 - 115 mg/dL 11/03/2021 8:21 AM CDT [facility] Specimen Type Cap Fingerstick 2021 8:21 AM CDT [facility] Blood BLOOD SPECIMEN / Unknown 11/03/2021 8:17 AM CDT 11/03/2021 8:21 AM CDT Maxi Gregg MD LAB - POINT OF ARE ORDERABLES [address] [address], [place] [phone] * (ABNORMAL) GLUCOSE - POINT OF CARE (11/03/2021 2:07 AM CDT) Glucose WB/POC 198(H) 70 - 115 mg/dL 11/03/2021 6:20 AM CDT [facility] Specimen Type Cap Fingerstick 2021 6:20 AM CDT [facility] Blood BLOOD SPECIMEN / Unknown 11/03/2021 2:07 AM CDT 11/03/2021 6:20 AM CDT Maxi Gregg MD LAB - POINT OF ARE ORDERABLES [address] [address], [place] [phone] * (ABNORMAL) GLUCOSE - POINT OF CARE (11/02/2021 7:45 PM CDT) Glucose WB/POC 189(H) 70 - 115 mg/dL 11/02/2021 7:49 PM CDT [facility] Specimen Type Cap Fingerstick 2021 7:49 PM CDT [facility] Blood BLOOD SPECIMEN / Unknown 11/02/2021 7:45 PM CDT 11/02/2021 7:49 PM CDT Maxi Gregg MD LAB - POINT OF ARE ORDERABLES [address] [address], [place] [phone] * (ABNORMAL) GLUCOSE - POINT OF CARE (11/02/2021 5:01 PM CDT) Glucose WB/POC 170(H) 70 - 115 mg/dL 11/02/2021 5:06 PM CDT [facility] Specimen Type Cap Fingerstick 2021 5:06 PM CDT [facility] Blood BLOOD SPECIMEN / Unknown 11/02/2021 5:01 PM CDT 11/02/2021 5:06 PM CDT Maxi Gregg MD LAB - POINT OF ARE ORDERABLES [address] [address], [place] [phone] * (ABNORMAL) GLUCOSE - POINT OF CARE (11/02/2021 12:03 PM CDT) Glucose WB/POC 187(H) 70 - 115 mg/dL 11/02/2021 5:06 PM CDT [facility] Specimen Type Cap Fingerstick 2021 5:06 PM CDT [facility] Blood BLOOD SPECIMEN / Unknown 11/02/2021 12:03 PM CDT 11/02/2021 5:06 PM CDT Maxi Gregg MD LAB - POINT OF ARE ORDERABLES Performing Organization Address City/[facility]/ZIP Co de Phone Number [address] [address], [place] [phone] * (ABNORMAL) GLUCOSE - POINT OF CARE (11/02/2021 7:55 AM CDT) Glucose WB/POC 179(H) 70 - 115 mg/dL 11/02/2021 8:00 AM CDT [facility] Specimen Type Arterial 11/02/2021 8:00 AM CDT [facility] Blood BLOOD SPECIMEN / Unknown 11/02/2021 7:55 AM CDT 11/02/2021 8:00 AM CDT Maxi Gregg MD LAB - POINT OF ARE ORDERABLES [address] [address], [place] [phone] * (ABNORMAL) GLUCOSE - POINT OF CARE (11/02/2021 2:02 AM CDT) Glucose WB/POC 199(H) 70 - 115 mg/dL 11/02/2021 2:07 AM CDT [facility] Specimen Type Cap Fingerstick 2021 2:07 AM CDT [facility] Blood BLOOD SPECIMEN / Unknown 11/02/2021 2:02 AM CDT 11/02/2021 2:07 AM CDT Maxi Gregg MD LAB - POINT OF ARE ORDERABLES [facility] [address] [place] [address], [place] [phone] * (ABNORMAL) GLUCOSE - POINT OF CARE (11/01/2021 8:35 PM CDT) Glucose WB/POC 259(H) 70 - 115 mg/dL 11/01/2021 8:40 PM CDT [facility] Specimen Type Cap Fingerstick 2021 8:40 PM CDT [facility] Blood BLOOD SPECIMEN / Unknown 11/01/2021 8:35 PM CDT 11/01/2021 8:40 PM CDT Maxi Gregg MD LAB - POINT OF ARE ORDERABLES Performing Organization Address City/[facility]/ZIP Co de Phone Number [address] [address], [place] [phone] * (ABNORMAL) GLUCOSE - POINT OF CARE (11/01/2021 5:49 PM CDT) Glucose WB/POC 199(H) 70 - 115 mg/dL 11/01/2021 5:54 PM CDT [facility] Specimen Type Cap Fingerstick 2021 5:54 PM CDT [facility] Blood BLOOD SPECIMEN / Unknown 11/01/2021 5:49 PM CDT 11/01/2021 5:54 PM CDT Maxi Gregg MD LAB - POINT OF ARE ORDERABLES [facility] [address] [place] [address], [place] [phone] * CARDIAC EKG ORDER (11/01/2021 2:28 PM CDT) Narrative 11/01/2021 2:28 PM CDT Ordered by an unspecified provider. Scanned Document CARDIAC SERVICES ORD ERABLES * (ABNORMAL) GLUCOSE - POINT OF CARE (11/01/2021 12:34 PM CDT) Glucose WB/POC 207(H) 70 - 115 mg/dL 11/01/2021 12:39 PM CDT [facility] Specimen Type Arterial 11/01/2021 12:39 PM CDT [facility] Blood BLOOD SPECIMEN / Unknown 11/01/2021 12:34 PM CDT 11/01/2021 12:39 PM CDT Maxi Gregg MD LAB - POINT OF C ARE ORDERABLES [facility] [address] [place] [address], [place] [phone] * (ABNORMAL) GLUCOSE - POINT OF CARE (11/01/2021 7:38 AM CDT) Glucose WB/POC 193(H) 70 - 115 mg/dL 11/01/2021 7:44 AM CDT [facility] Specimen Type Arterial 11/01/2021 7:44 AM CDT [facility] Blood BLOOD SPECIMEN / Unknown 11/01/2021 7:38 AM CDT 11/01/2021 7:44 AM CDT Maxi Gregg MD LAB - POINT OF C ARE ORDERABLES [facility] [address] [place] [address], [place] [phone] * (ABNORMAL) GLUCOSE - POINT OF CARE (11/01/2021 2:06 AM CDT) Glucose WB/POC 247(H) 70 - 115 mg/dL 11/01/2021 2:11 AM CDT [facility] Specimen Type Cap Fingerstick 2021 2:11 AM CDT [facility] Blood BLOOD SPECIMEN / Unknown 11/01/2021 2:06 AM CDT 11/01/2021 2:11 AM CDT Maxi Gregg MD LAB - POINT OF C ARE ORDERABLES [address] [address], [place] [phone] * (ABNORMAL) C-REACTIVE PROTEIN (11/01/2021 1:22 AM CDT) Pathologist [facility] C-Reactive Protein 14.3(H) <=0.5 mg/dL 11/01/2021 2:27 AM CDT [facility] Blood BLOOD SPECIMEN / Unknown Lab Venipuncture / Unknown 11/01/2021 1:22 AM CDT 11/01/2021 1:41 AM CDT Maxi Gregg MD LAB - CHEMISTRY ORDERABLES [address] [address], [place] [phone] * (ABNORMAL) ERYTHROCYTE SEDIMENTATION RATE (11/01/2021 1:21 AM CDT) Pathologist [facility] Erythrocyte Sedimentation Rate Westergren 94(H) 0 - 30 MM/HR 11/01/2021 2:24 AM CDT [facility] Blood BLOOD SPECIMEN / Unknown Lab Venipuncture / Unknown 11/01/2021 1:21 AM CDT 11/01/2021 1:47 AM CDT Maxi Gregg MD LAB - HEMATOLOGY ORDERABLES [address] [address], [place] [phone] * VANCOMYCIN LEVEL TROUGH (10/31/2021 9:53 PM CDT) Vancomycin Trough 13.6 10.0 - 20.0 ug/mL 10/31/2021 10:20 PM CDT [facility] Blood BLOOD SPECIMEN / Unknown Venipuncture / Unknown 10/31/2021 9:53 PM CDT 10/31/2021 9:56 PM CDT Narrative [facility] - 10/31/2021 10:20 PM CDT See institution protocol. Gil Hill MD LAB - CHEMISTR Y ORDERABLES [address] [address], [facility] [phone] * (ABNORMAL) GLUCOSE - POINT OF CARE (10/31/2021 7:46 PM CDT) Glucose WB/POC 301(H) 70 - 115 mg/dL 10/31/2021 7:47 PM CDT [facility] Specimen Type Arterial 10/31/2021 7:47 PM CDT [facility] Blood BLOOD SPECIMEN / Unknown 10/31/2021 7:46 PM CDT 10/31/2021 7:47 PM CDT Maxi Gregg MD LAB - POINT OF C ARE ORDERABLES [address] [address], [place] [phone] * (ABNORMAL) GLUCOSE - POINT OF CARE (10/31/2021 5:04 PM CDT) Glucose WB/POC 243(H) 70 - 115 mg/dL 10/31/2021 5:09 PM CDT [facility] Specimen Type Cap Fingerstick 2021 5:09 PM CDT [facility] Blood BLOOD SPECIMEN / Unknown 10/31/2021 5:04 PM CDT 10/31/2021 5:09 PM CDT Maxi Gregg MD LAB - POINT OF ARE ORDERABLES Performing Organization Address City/[facility]/ZIP Co de Phone Number [address] [address], [place] [phone] * (ABNORMAL) GLUCOSE - POINT OF CARE (10/31/2021 12:59 PM CDT) [facility] Glucose WB/POC 282(H) 70 - 115 mg/dL 10/31/2021 1:04 PM CDT [facility] Specimen Type Cap Fingerstick 2021 1:04 PM CDT [facility] Blood BLOOD SPECIMEN / Unknown 10/31/2021 12:59 PM CDT 10/31/2021 1:04 PM CDT Maxi Gregg MD LAB - POINT OF ARE ORDERABLES Performing Organization Address [facility]/ZIP Co de Phone Number [address] [address], [place] [phone] * PTT [facility] (10/31/2021 11:55 AM CDT) [facility] APTT 34.1 23.0 - 38.4 Seconds 10/31/2021 1:41 PM CDT [facility] Comment:Suggested therapeuti c range for full dose I.V. unfractionated heparin therapy for venous thromboembolism is 71 to 109 seconds. Blood BLOOD SPECIMEN / Unknown Lab Venipuncture / Unknown 10/31/2021 11:55 AM CDT 10/31/2021 1:09 PM CDT Gil Hill MD LAB - COAGULAT ION ORDERABLES Performing Organization Address [facility]/ZIP Co de Phone Number [address] [address], [place] [phone] * (ABNORMAL) PT-INR [facility] (10/31/2021 11:55 AM CDT) [facility] PT 15.7(H) 12.1 - 14.8 Seconds 10/31/2021 1:40 PM [facility] INR 1.3 See Comment 10/31/2021 1:40 PM [facility] Comment:The suggested therap eutic range for standard coumadin (warfarin) therapy is an INR of 2.0-3.0. For high-risk patients (Mechanical Mitral Valve Prosthesis, etc.), the suggested prophylactic therapeutic range is an INR of 2.5-3.5. Blood BLOOD SPECIMEN / Unknown Lab Venipuncture / Unknown 10/31/2021 11:55 AM CDT 10/31/2021 1:09 PM CDT Gil Hill MD LAB - COAGULAT ION ORDERABLES [facility] [address] [place] [address], [facility] [phone] * (ABNORMAL) COMPREHENSIVE METABOLIC PANEL (10/31/2021 11:55 AM CDT) BUN 15 7 - 26 mg/dL 10/31/2021 1:35 PM [facility] Creatinine 0.66 0.56 - 0.96 mg/dL 10/31/2021 1:35 PM [facility] Sodium 137 136 - 145 mmol/L 10/31/2021 1:35 PM [facility] Potassium 4.1 3.5 - 4.5 mmol/L 10/31/2021 1:35 PM [facility] Chloride 103 98 - 107 mmol/L 10/31/2021 1:35 PM [facility] CO2 28 22 - 29 mmol/L 10/31/2021 1:35 PM [facility] Glucose 291(H) 70 - 115 mg/dL 10/31/2021 1:35 PM [facility] Calcium 9.1 8.4 - 10.2 mg/dL 10/31/2021 1:35 PM [facility] Protein Total 7.4 6.0 - 8.3 g/dL 10/31/2021 1:35 PM [facility] Albumin 2.6(L) 3.4 - 5.0 g/dL 10/31/2021 1:35 PM [facility] Bilirubin Total 0.5 0.2 - 1.2 mg/dL 10/31/2021 1:35 PM [facility] Alkaline Phosphatase 90 40 - 150 U/L 10/31/2021 1:35 PM [facility] ALT 14 5 - 55 U/L 10/31/2021 1:35 PM [facility] AST 8 5 - 34 U/L 10/31/2021 1:35 PM [facility] Anion Gap 10 8 - 18 10/31/2021 1:35 PM [facility] BUN/Creatinine Ratio 23 7 - 23 10/31/2021 1:35 PM [facility] Osmolality Calculated 296 270 - 300 mOsm/kg 10/31/2021 1:35 PM [facility] Albumin/Globulin Ratio 0.5(L) 1.1 - 2.3 10/31/2021 1:35 PM [facility] eGFR by CKD-EPI >90 >=90 mL/min/1.7 3 m2 10/31/2021 1:35 PM [facility] Blood BLOOD SPECIMEN / Unknown Lab Venipuncture / Unknown 10/31/2021 11:55 AM CDT 10/31/2021 1:07 PM T Gil Hill MD LAB - CHEMISTR Y ORDERABLES Performing Organization Address [facility] Co de Phone Number [facility] [address] [place] [id number], [facility] [phone] * (ABNORMAL) CBC W/O DIFFERENTIAL (10/31/2021 11:55 AM CDT) WBC 18.5(H) 3.5 - 10.5 10? 3 /uL 10/31/2021 1:14 PM [facility] RBC 4.19 3.80 - 5.20 10? 6 /uL 10/31/2021 1:14 PM [facility] Hemoglobin 12.2 12.0 - 15.6 g/dL 10/31/2021 1:14 PM [facility] Hematocrit 38.2 35.0 - 45.0 % 10/31/2021 1:14 PM [facility] MCV 91.2 80.7 - 98.3 fL 10/31/2021 1:14 PM [facility] MCH 29.1 26.7 - 34.0 pg 10/31/2021 1:14 PM [facility] MCHC 31.9 30.8 - 35.9 g/dL 10/31/2021 1:14 PM [facility] Platelet Count 283 150 - 400 10? 3 /uL 10/31/2021 1:14 PM [facility] RDW-SD 46.6 36.0 - 50.0 fL 10/31/2021 1:14 PM [facility] RDW-CV 13.8 11.2 - 14.8 % 10/31/2021 1:14 PM [facility] MPV 10.2 9.4 - 12.9 fL 10/31/2021 1:14 PM [facility] nRBC Absolute 0.00 0 10? 3 /uL 10/31/2021 1:14 PM [facility] nRBC Auto 0.0 0 /100 WBC 10/31/2021 1:14 PM [facility] Blood BLOOD SPECIMEN / Unknown Lab Venipuncture / Unknown 10/31/2021 11:55 AM CDT 10/31/2021 1:06 PM T Gil Hill MD LAB - HEMATOLO GY ORDERABLES [facility] [address] [place] [phone], [facility] [phone] * (ABNORMAL) HEMOGLOBIN A1C (10/31/2021 11:55 AM CDT) Hemoglobin A1c 7.8(H) <=5.6 % 11/01/2021 11:06 AM [facility] Estimated Average Glucose 177 mg/dL 11/01/2021 11:06 AM [facility] Comment: HbA1c Interpretation: Normal : < 5.7% Pre-diabetes: 5.7-6.4% Diabetes: Equal to or greater than 6.5% Test results diagnostic of diabetes should be repeated for confirmation. Treatment target values recommended by ADA and other clinical organizations should be used to evaluate metabolic control in patients. Reference: [place] [employer], Standards of Care in Diabetes [...] Hill MD LAB - CHEMISTR Y ORDERABLES [address] [address], [place] [phone] * (ABNORMAL) GLUCOSE - POINT OF CARE (10/31/2021 8:09 AM CDT) Glucose WB/POC 222(H) 70 - 115 mg/dL 10/31/2021 8:13 AM CDT [facility] Specimen Type Arterial 10/31/2021 8:13 AM CDT [facility] Blood BLOOD SPECIMEN / Unknown 10/31/2021 8:09 AM CDT 10/31/2021 8:13 AM CDT Maxi Gregg MD LAB - POINT OF C ARE ORDERABLES [address] [address], [place] [phone] * (ABNORMAL) COMPREHENSIVE METABOLIC PANEL (10/30/2021 9:00 PM CDT) BUN 13 7 - 26 mg/dL 10/30/2021 9:51 PM CDT [facility] Creatinine 0.68 0.56 - 0.96 mg/dL 10/30/2021 9:51 PM [facility] Sodium 137 136 - 145 mmol/L 10/30/2021 9:51 PM [facility] Potassium 4.6(H) 3.5 - 4.5 mmol/L 10/30/2021 9:51 PM [facility] Chloride 102 98 - 107 mmol/L 10/30/2021 9:51 PM [facility] CO2 25 22 - 29 mmol/L 10/30/2021 9:51 PM [facility] Glucose 294(H) 70 - 115 mg/dL 10/30/2021 9:51 PM [facility] Calcium 9.0 8.4 - 10.2 mg/dL 10/30/2021 9:51 PM [facility] Protein Total 7.2 6.0 - 8.3 g/dL 10/30/2021 9:51 PM [facility] Albumin 2.7(L) 3.4 - 5.0 g/dL 10/30/2021 9:51 PM [facility] Bilirubin Total 1.1 0.2 - 1.2 mg/dL 10/30/2021 9:51 PM [facility] Alkaline Phosphatase 74 40 - 150 U/L 10/30/2021 9:51 PM [facility] ALT 14 5 - 55 U/L 10/30/2021 9:51 PM [facility] AST 9 5 - 34 U/L 10/30/2021 9:51 PM [facility] Anion Gap 15 8 - 18 10/30/2021 9:51 PM [facility] BUN/Creatinine Ratio 19 7 - 23 10/30/2021 9:51 PM [facility] Osmolality Calculated 295 270 - 300 mOsm/kg 10/30/2021 9:51 PM [facility] Albumin/Globulin Ratio 0.6(L) 1.1 - 2.3 10/30/2021 9:51 PM [facility] eGFR by CKD-EPI >90 >=90 mL/min/1.7 3 m2 10/30/2021 9:51 PM [facility] Blood BLOOD SPECIMEN / Unknown Lab Venipuncture / Unknown 10/30/2021 9:00 PM CDT 10/30/2021 9:22 PM CDT Gil Hill MD LAB - CHEMISTR Y ORDERABLES [facility] [address] [place] [address], [facility] [phone] * (ABNORMAL) CBC W AUTO DIFFERENTIAL (10/30/2021 9:00 PM CDT) WBC 20.5(H) 3.5 - 10.5 10? 3 /uL 10/30/2021 9:28 PM CDT [facility] RBC 4.07 3.80 - 5.20 10? 6 /uL 10/30/2021 9:28 PM [facility] Hemoglobin 12.0 12.0 - 15.6 g/dL 10/30/2021 9:28 PM [facility] Hematocrit 37.2 35.0 - 45.0 % 10/30/2021 9:28 PM [facility] MCV 91.4 80.7 - 98.3 fL 10/30/2021 9:28 PM [facility] MCH 29.5 26.7 - 34.0 pg 10/30/2021 9:28 PM [facility] MCHC 32.3 30.8 - 35.9 g/dL 10/30/2021 9:28 PM [facility] Platelet Count 255 150 - 400 10? 3 /uL 10/30/2021 9:28 PM [facility] RDW-SD 47.0 36.0 - 50.0 fL 10/30/2021 9:28 PM [facility] RDW-CV 13.9 11.2 - 14.8 % 10/30/2021 9:28 PM [facility] MPV 9.6 9.4 - 12.9 fL 10/30/2021 9:28 PM [facility] nRBC Absolute 0.00 0 10? 3 /uL 10/30/2021 9:28 PM [facility] nRBC Auto 0.0 0 /100 WBC 10/30/2021 9:28 PM [facility] Neutrophils % 93.0(H) 35.0 - 70.0 % 10/30/2021 9:28 PM [facility] Lymphocytes % 3.8(L) 20.0 - 43.0 % 10/30/2021 9:28 PM [facility] Monocytes % 2.5(L) 5.0 - 13.0 % 10/30/2021 9:28 PM [facility] Eosinophils % 0.0 0.0 - 6.0 % 10/30/2021 9:28 PM [facility] Basophil % 0.2 0.0 - 2.0 % 10/30/2021 9:28 PM [facility] Neutrophils Absolute 19.09(H) 1.60 - 7.00 10? 3 /uL 10/30/2021 9:28 PM [facility] Lymphocyte Absolute 0.77(L) 1.10 - 3.90 10? 3 /uL 10/30/2021 9:28 PM [facility] Monocytes Absolute 0.52 0.26 - 1.07 10? 3 /uL 10/30/2021 9:28 PM [facility] Eosinophils Absolute 0.01 0.00 - 0.47 10? 3 /uL 10/30/2021 9:28 PM [facility] Basophils Absolute 0.04 0.00 - 0.08 10? 3 /uL 10/30/2021 9:28 PM [facility] Immature Granulocytes % 0.5 0.0 - 1.0 % 10/30/2021 9:28 PM [facility] Immature Granulocytes Absolute 0.10 10/30/2021 9:28 PM [facility] Blood BLOOD SPECIMEN / Unknown Lab Venipuncture / Unknown 10/30/2021 9:00 PM CDT 10/30/2021 9:22 PM [facility] Gil Hill MD LAB - HEMATOLO GY ORDERABLES [facility] [address] [place] [address], [facility] [phone] * (ABNORMAL) PT-INR [facility] (10/30/2021 9:00 PM CDT) PT 15.8(H) 12.1 - 14.8 Seconds 10/30/2021 9:47 PM CDT [facility] INR 1.3 See Comment 10/30/2021 9:47 PM CDT [facility] Comment:The suggested therap eutic range for standard coumadin (warfarin) therapy is an INR of 2.0-3.0. For high-risk patients (Mechanical Mitral Valve Prosthesis, etc.), the suggested prophylactic therapeutic range is an INR of 2.5-3.5. Blood BLOOD SPECIMEN / Unknown Lab Venipuncture / Unknown 10/30/2021 9:00 PM CDT 10/30/2021 9:22 PM CDT Gil Hill MD LAB - COAGULAT ION ORDERABLES [facility] [address] [place] [address], [facility] [phone] * PTT [facility] (10/30/2021 9:00 PM CDT) APTT 30.8 23.0 - 38.4 Seconds 10/30/2021 9:47 PM CDT [facility] Comment:Suggested therapeuti c range for full dose I.V. unfractionated heparin therapy for venous thromboembolism is 71 to 109 seconds. Blood BLOOD SPECIMEN / Unknown Lab Venipuncture / Unknown 10/30/2021 9:00 PM CDT 10/30/2021 9:22 PM CDT Gil Hill MD LAB - COAGULAT ION ORDERABLES [facility] [address] [place] [address], [place] [phone] * XR CHEST 1VW PORTABLE (10/30/2021 6:34 [...] intact. Report dictated by Alex Bradley MD (resident physician in radiology). Dr. TYLOR Perez have personally reviewed and [...] intact. Report dictated by Alex Bradley MD (resident physician in radiology). Dr. TYLOR Perez have personally reviewed and interpreted this examination/study. This report was electronically signed by TYLOR PENNINGTON on 10/31/2021 11:18 AM . Gil Hill MD DIAGNOSTIC PATRICK GING ORDERABLES * (ABNORMAL) GLUCOSE - POINT OF CARE (10/30/2021 5:30 PM CDT) Glucose WB/POC 173(H) 70 - 115 mg/dL 10/30/2021 5:35 PM CDT [facility] Specimen Type Cap Fingerstick 2021 5:35 PM CDT [facility] Blood BLOOD SPECIMEN / Unknown 10/30/2021 5:30 PM CDT 10/30/2021 5:35 PM CDT Gil Hill MD LAB - POINT OF CARE ORDERABLES [facility] [address] [place] [phone], [facility] [phone] * CULTURE FUNGUS OTHER+FUNGUS SMEAR (10/30/2021 4:51 PM CDT) Culture No fungus isolated [place] 11/29/2021 12:06 PM CDT [facility] Fungus Stain No yeast or hyphae seen 11/29/2021 12:06 PM CDT [facility] Microbiology SPECIMEN FROM WOUND / Unknown Collection / Unknown 10/30/2021 4:51 PM CDT 10/30/2021 5:24 PM CDT Maxi Gregg MD LAB - MICROBIOLO GY ORDERABLES Performing Organization Address City/[facility]/ZIP Co de Phone Number [facility] [address] [place] [address], [facility] [phone] * CULTURE ANAEROBE (10/30/2021 4:51 PM CDT) Culture No anaerobic organisms isolated [place] 11/04/2021 11:12 AM CDT [facility] Microbiology SPECIMEN FROM WOUND / Unknown Collection / Unknown 10/30/2021 4:51 PM CDT 10/30/2021 5:24 PM CDT Maxi Gregg MD LAB - MICROBIOLO GY ORDERABLES Performing Organization Address City/[facility]/ZIP Co de Phone Number [facility] [address] [place] [address], [facility] [phone] * (ABNORMAL) CULTURE FLUID+GRAM STAIN (10/30/2021 4:51 PM CDT) Culture Heavy Escherichia coli(AA) [place] 11/03/2021 12:18 AM CDT [facility] Comment:Strain 1 Culture Heavy Escherichia coli(AA) [place] 11/03/2021 12:18 AM [facility] Comment:Strain 2 Gram Stain Heavy Polymorphonuclear cells(AA) 11/03/2021 12:18 AM [facility] Gram Stain Light Gram-negative bacilli(AA) 11/03/2021 12:18 AM [facility] Fluid BODY FLUID SPECIMEN / Unknown [...] Gregg MD LAB - MICROBIOLO GY ORDERABLES [facility] [address] [place] [address], [facility] [phone] * (ABNORMAL) GLUCOSE - POINT OF CARE (10/30/2021 2:48 PM CDT) Glucose WB/POC 170(H) 70 - 115 mg/dL 10/30/2021 2:53 PM CDT [facility] Specimen Type Cap Fingerstick 2021 2:53 PM CDT [facility] Blood BLOOD SPECIMEN / Unknown 10/30/2021 2:48 PM CDT 10/30/2021 2:53 PM CDT Gil Hill MD LAB - POINT OF CARE ORDERABLES [facility] [address] [place] [address], [facility] [phone] * (ABNORMAL) PT-INR [facility] (10/30/2021 1:46 PM CDT) PT 15.8(H) 12.1 - 14.8 Seconds 10/30/2021 2:21 PM CDT [facility] INR 1.3 See Comment 10/30/2021 2:21 PM CDT [facility] Comment:The suggested therap eutic range for standard coumadin (warfarin) therapy is an INR of 2.0-3.0. For high-risk patients (Mechanical Mitral Valve Prosthesis, etc.), the suggested prophylactic therapeutic range is an INR of 2.5-3.5. Blood BLOOD SPECIMEN / Unknown Venipuncture / Unknown 10/30/2021 1:46 PM CDT 10/30/2021 1:56 PM CDT Gil Hill MD LAB - COAGULAT ION ORDERABLES Performing Organization Address [facility]/ZIP Co de Phone Number [address] [address], [facility] [phone] * PTT [facility] (10/30/2021 1:46 PM CDT) APTT 30.7 23.0 - 38.4 Seconds 10/30/2021 2:22 PM CDT [facility] Comment:Suggested therapeuti c range for full dose I.V. unfractionated heparin therapy for venous thromboembolism is 71 to 109 seconds. Blood BLOOD SPECIMEN / Unknown Venipuncture / Unknown 10/30/2021 1:46 PM CDT 10/30/2021 1:56 PM CDT Gil Hill MD LAB - COAGULAT ION ORDERABLES Performing Organization Address [facility] Co de Phone Number [address] [address], [facility] [phone] * (ABNORMAL) URINALYSIS REFLEX TO MICROSCOPIC NO CULTURE (10/30/2021 1:46 PM CDT) Color UA Yellow Straw, Yellow 10/30/2021 2:04 PM CDT [facility] Clarity UA Clear Clear 10/30/2021 2:04 PM CDT [facility] Specific [place] UA 1.027 1.005 - 1.030 10/30/2021 2:04 PM CDT [facility] pH UA 5.0 5.0 - 8.0 pH 10/30/2021 2:04 PM CDT [facility] Protein UA Negative Negative 10/30/2021 2:04 PM CDT [facility] Glucose UA 1+(A) Negative 10/30/2021 2:04 PM CDT [facility] Ketone UA Negative Negative 10/30/2021 2:04 PM CDT [facility] Bilirubin UA Negative Negative 10/30/2021 2:04 PM CDT [facility] Blood UA 1+(A) Negative 10/30/2021 2:04 PM CDT [facility] Nitrite UA Negative Negative 10/30/2021 2:04 PM CDT [facility] Leukocyte Esterase Negative Negative 10/30/2021 2:04 PM CDT [facility] Urobilinogen UA Negative Negative mg/dL 10/30/2021 2:04 PM CDT [facility] RBC UA 6-10(A) None Seen, 0-2, 3-5 /HPF 10/30/2021 2:04 PM CDT [facility] WBC UA 6-10(A) None Seen, 0-5 /HPF 10/30/2021 2:04 PM CDT [facility] Squamous Epithelial Cells UA None Seen None Seen, 0-2, 3-5 /HPF 10/30/2021 2:04 PM CDT [facility] Mucus UA 2+ /LPF 10/30/2021 2:04 PM CDT [facility] Urine URINE SPECIMEN OBTAINED BY CLEAN CATCH PROCEDURE / Unknown Collection / Unknown 10/30/2021 1:46 PM CDT 10/30/2021 1:55 PM CDT Narrative [facility] - 10/30/2021 2:04 PM CDT Gil Hill MD LAB - URINALYS IS ORDERABLES [address] [address], [facility] [phone] * TYPE + SCREEN PANEL (10/30/2021 1:46 PM CDT) Antibody Screen NEG 2:40 PM CDT [facility] ABO Rh O POS 10/30/2021 2:40 PM CDT [facility] Blood Bank BLOOD SPECIMEN / Unknown Venipuncture / Unknown 10/30/2021 1:46 PM CDT 10/30/2021 1:56 PM CDT Gil Hill MD LAB - BLOOD BA NK ORDERABLES Performing Organization Address [facility] Co de Phone Number [facility] [address] [place] [address], [facility] [phone] * EKG 12-LEAD (10/30/2021 12:00 PM CDT) Ventricular Rate 82 BPM [facility] MUSE Atrial Rate 82 BPM [facility] MUSE P-R Interval 124 ms [facility] QRS Duration ms 88 ms [facility] MUSE Q-T Interval ms 372 ms [facility] MUSE QTC Calculation (Bezet) 434 ms [facility] MUSE Calculated P [place] 60 degrees SL MUSE Calculated R [place] 11 degrees SL MUSE Calculated T [place] 38 degrees [facility] MUSE Interpretation EKG NORMAL SINUS RHYTHM WITH SINUS ARRHYTHMIA NONSPECIFIC T WAVE ABNORMALITY ABNORMAL ECG NO PREVIOUS ECGS AVAILABLE Confirmed by MD Tirso. , Lizzy ([id number]) on 10/31/2021 6:58:26 PM [facility] MUSE 10/30/2021 12:0 0 PM CDT 10/31/2021 6:58 PM CDT Gil Hill MD ECG ORDERABLES Performing Organization Address [facility] de Phone Number [facility] * BLOOD TYPE VERIFICATION (10/30/2021 11:31 AM CDT) ABO Rh O POS 10/30/2021 2:2 7 PM CDT [facility] Blood Bank BLOOD SPECIMEN / Unknown 10/30/2021 11:31 AM CDT 10/30/2021 1:58 PM CDT Della Sagastume MD LAB - BLOOD BANK ORD ERABLES Performing Organization Address [facility] Co de Phone Number [facility] [address] [place] [address], [place] [phone] * CULTURE URINE (10/30/2021 8:03 AM CDT) Culture Urine <10,000 CFU/mL urogenital evelio [place] 10/31/2021 11:39 AM CDT [facility] Urine URINE SPECIMEN OBTAINED BY CLEAN CATCH PROCEDURE / Unknown Collection / Unknown 10/30/2021 8:03 AM CDT 10/30/2021 8:10 AM CDT Lila Castillo MD LAB - MICROBIOLOGY O RDERABLES [facility] [address] [place] [address], [facility] [phone] * (ABNORMAL) URINALYSIS REFLEX TO MICROSCOPIC NO CULTURE (10/30/2021 8:03 AM CDT) Color UA Yellow Straw, Yellow 10/30/2021 8:20 AM [facility] Clarity UA Clear Clear 10/30/2021 8:20 AM [facility] Specific [place] UA 1.027 1.005 - 1.030 10/30/2021 8:20 AM [facility] pH UA 5.0 5.0 - 8.0 pH 10/30/2021 8:20 AM [facility] Protein UA Negative Negative 10/30/2021 8:20 AM [facility] Glucose UA 1+(A) Negative 10/30/2021 8:20 AM [facility] Ketone UA Negative Negative 10/30/2021 8:20 AM [facility] Bilirubin UA Negative Negative 10/30/2021 8:20 AM [facility] Blood UA 1+(A) Negative 10/30/2021 8:20 AM [facility] Nitrite UA Negative Negative 10/30/2021 8:20 AM [facility] Leukocyte Esterase Negative Negative 10/30/2021 8:20 AM [facility] Urobilinogen UA Negative Negative mg/dL 10/30/2021 8:20 AM [facility] RBC UA 6-10(A) None Seen, 0-2, 3-5 /HPF 10/30/2021 8:20 AM [facility] WBC UA 0-5 None Seen, 0-5 /HPF 10/30/2021 8:20 AM CDT [facility] Squamous Epithelial Cells UA None Seen None Seen, 0-2, 3-5 /HPF 10/30/2021 8:20 AM CDT [facility] Urine URINE SPECIMEN OBTAINED BY CLEAN CATCH PROCEDURE / Unknown Collection / Unknown 10/30/2021 8:03 AM CDT 10/30/2021 8:10 AM CDT Narrative [facility] - 10/30/2021 8:20 AM CDT Lila Castillo MD LAB - URINALYSIS ORD ERABLES [facility] [address] [place] [address], [facility] [phone] * CULTURE BLOOD (10/30/2021 6:41 AM CDT) Culture No growth day 5 [place] 11/04/2021 10:32 AM CDT [facility] Blood PERIPHERAL BLOOD / Unknown Venipuncture / Unknown 10/30/2021 6:41 AM CDT 10/30/2021 7:01 AM CDT Lila Castillo MD LAB - MICROBIOLOGY O RDANNEBLES Performing Organization Address City/[facility]/ZIP Co de Phone Number [facility] [address] [place] [address], [facility] [phone] * CULTURE BLOOD (10/30/2021 6:40 AM CDT) Culture No growth day 5 [place] 11/04/2021 10:32 AM CDT [facility] Blood PERIPHERAL BLOOD / Unknown Venipuncture / Unknown 10/30/2021 6:40 AM CDT 10/30/2021 7:01 AM CDT Lila Castillo MD LAB - MICROBIOLOGY O RDERABLES Performing Organization Address City/[facility]/ZIP Co de Phone Number [facility] [address] [place] [address], [facility] [phone] * (ABNORMAL) C-REACTIVE PROTEIN (10/30/2021 5:33 AM CDT) [facility] C-Reactive Protein 14.2(H) <=0.5 mg/dL 10/30/2021 6:13 AM CDT [facility] Blood BLOOD SPECIMEN / Unknown Venipuncture / Unknown 10/30/2021 5:33 AM CDT 10/30/2021 5:43 AM CDT Lila Castillo MD LAB - CHEMISTRY ORDNicholas SPEARS Performing Organization Address City/[facility]/ZIP Co de Phone Number [address] [address], [facility] [phone] * (ABNORMAL) ERYTHROCYTE SEDIMENTATION RATE (10/30/2021 5:33 AM CDT) [facility] Erythrocyte Sedimentation Rate [place] 107(H) 0 - 30 MM/HR 10/30/2021 6:13 AM CDT [facility] Blood BLOOD SPECIMEN / Unknown Venipuncture / Unknown 10/30/2021 5:33 AM CDT 10/30/2021 5:44 AM CDT Lila Castillo MD LAB - HEMATOLOGY ORD NEGRITA Performing Organization Address [facility]/ZIP Co de Phone Number [address] [address], [place] [phone] * (ABNORMAL) COMPREHENSIVE METABOLIC PANEL (10/30/2021 5:33 AM CDT) [facility] BUN 14 7 - 26 mg/dL 10/30/2021 6:10 AM CDT [facility] Creatinine 0.63 0.56 - 0.96 mg/dL 10/30/2021 6:10 AM CDT [facility] Sodium 135(L) 136 - 145 mmol/L 10/30/2021 6:10 AM T [facility] Potassium 4.1 3.5 - 4.5 mmol/L 10/30/2021 6:10 AM T [facility] Chloride 99 98 - 107 mmol/L 10/30/2021 6:10 AM T [facility] CO2 27 22 - 29 mmol/L 10/30/2021 6:10 AM [facility] Glucose 217(H) 70 - 115 mg/dL 10/30/2021 6:10 AM [facility] Calcium 9.2 8.4 - 10.2 mg/dL 10/30/2021 6:10 AM [facility] Protein Total 7.2 6.0 - 8.3 g/dL 10/30/2021 6:10 AM [facility] Albumin 2.8(L) 3.4 - 5.0 g/dL 10/30/2021 6:10 AM [facility] Bilirubin Total 1.3(H) 0.2 - 1.2 mg/dL 10/30/2021 6:10 AM [facility] Alkaline Phosphatase 77 40 - 150 U/L 10/30/2021 6:10 AM [facility] ALT 14 5 - 55 U/L 10/30/2021 6:10 AM [facility] AST 11 5 - 34 U/L 10/30/2021 6:10 AM [facility] Anion Gap 13 8 - 18 10/30/2021 6:10 AM [facility] BUN/Creatinine Ratio 22 7 - 23 10/30/2021 6:10 AM [facility] Osmolality Calculated 287 270 - 300 mOsm/kg 10/30/2021 6:10 AM [facility] Albumin/Globulin Ratio 0.6(L) 1.1 - 2.3 10/30/2021 6:10 AM [facility] eGFR by CKD-EPI >90 >=90 mL/min/1.7 3 m2 10/30/2021 6:10 AM [facility] Blood BLOOD SPECIMEN / Unknown Venipuncture / Unknown 10/30/2021 5:33 AM CDT 10/30/2021 5:44 AM [facility] Lila Castillo MD LAB - CHEMISTRY [facility] Organization Address City/State/ZIP Co de Phone Number [facility] [address] [place] [address], [facility] [phone] * (ABNORMAL) CBC W AUTO DIFFERENTIAL (10/30/2021 5:33 AM T) WBC 20.5(H) 3.5 - 10.5 10? 3 /uL 10/30/2021 5:56 AM [facility] RBC 4.28 3.80 - 5.20 10? 6 /uL 10/30/2021 5:56 AM [facility] Hemoglobin 12.5 12.0 - 15.6 g/dL 10/30/2021 5:56 AM [facility] Hematocrit 39.8 35.0 - 45.0 % 10/30/2021 5:56 AM [facility] MCV 93.0 80.7 - 98.3 fL 10/30/2021 5:56 AM [facility] MCH 29.2 26.7 - 34.0 pg 10/30/2021 5:56 AM [facility] MCHC 31.4 30.8 - 35.9 g/dL 10/30/2021 5:56 AM [facility] Platelet Count 298 150 - 400 10? 3 /uL 10/30/2021 5:56 AM [facility] RDW-SD 47.6 36.0 - 50.0 fL 10/30/2021 5:56 AM [facility] RDW-CV 14.1 11.2 - 14.8 % 10/30/2021 5:56 AM [facility] MPV 10.4 9.4 - 12.9 fL 10/30/2021 5:56 AM [facility] nRBC Absolute 0.00 0 10? 3 /uL 10/30/2021 5:56 AM [facility] nRBC Auto 0.0 0 /100 WBC 10/30/2021 5:56 AM [facility] Neutrophils % 82.3(H) 35.0 - 70.0 % 10/30/2021 5:56 AM [facility] Lymphocytes % 8.8(L) 20.0 - 43.0 % 10/30/2021 5:56 AM [facility] Monocytes % 7.4 5.0 - 13.0 % 10/30/2021 5:56 AM [facility] Eosinophils % 0.8 0.0 - 6.0 % 10/30/2021 5:56 AM [facility] Basophil % 0.2 0.0 - 2.0 % 10/30/2021 5:56 AM [facility] Neutrophils Absolute 16.83(H) 1.60 - 7.00 10? 3 /uL 10/30/2021 5:56 AM [facility] Lymphocyte Absolute 1.80 1.10 - 3.90 10? 3 /uL 10/30/2021 5:56 AM [facility] Monocytes Absolute 1.52(H) 0.26 - 1.07 10? 3 /uL 10/30/2021 5:56 AM [facility] Eosinophils Absolute 0.17 0.00 - 0.47 10? 3 /uL 10/30/2021 5:56 AM [facility] Basophils Absolute 0.04 0.00 - 0.08 10? 3 /uL 10/30/2021 5:56 AM [facility] Immature Granulocytes % 0.5 0.0 - 1.0 % 10/30/2021 5:56 AM [facility] Immature Granulocytes Absolute 0.11 10/30/2021 5:56 AM [facility] Blood BLOOD SPECIMEN / Unknown Venipuncture / Unknown 10/30/2021 5:33 AM CDT 10/30/2021 5:44 AM CDT Lila Castillo MD LAB - HEMATOLOGY ORD ERABLES Performing Organization Address City/State/[facility] Co de Phone Number [facility] [address] [place] [address], [facility] [phone] documented in this encounter Visit Diagnoses Diagnosis S/P insertion of spinal cord stimulator- Primary Preoperative examination Preoperative examination, unspecified S/P insertion of spinal cord stimulator Acute post-operative pain Chronic anticoagulation Encounter for long-term (current) use of anticoagulants Other acute postprocedural pain intermediate (current) use of anticoagulants Long-term (current) use [...] (pediatric) Type 2 diabetes mellitus without complication ([facility]) Preoperative examination Preoperative examination, unspecified Acute post-operative pain Infection Unspecified infectious and parasitic diseases documented in this encounter Administered Medications Inactive [...] Mon10/31/21 at 2358, Until 11/06/21 at 1518 $ Given 11/06/2021 6:52 AM [...] dose on Mon10/30/21 at 1200, Until Discontinued $ Given 11/06/2021 8:23 AM CDT 25 mg $ Given 11/05/2021 8:30 AM CDT 25 mg $ Given 11/04/2021 8:15 AM CDT 25 mg gabapentin (Neurontin) capsule 300 mg 300 mg, Oral, 3 TIMES DAILY, First dose on Mon11/01/21 at 0000, Until Discontinued $ Given 11/06/2021 8:23 AM CDT 300 mg $ Given 11/05/2021 9:52 PM CDT 300 mg $ Given 11/05/2021 2:03 PM CDT 300 mg heparin injection 5,000 Units 5,000 Units, Subcutaneous, EVERY 8 HOURS, First dose on Mon10/30/21 at 2200, Until Discontinued $ Given 11/06/2021 6:52 AM CDT 5,000 Units Abdominal Tissue $ Given 11/05/2021 9:53 PM CDT 5,000 Units L eft Arm $ Given 11/05/2021 2:03 PM CDT 5,000 Units A bd Left Lower Quadrant HYDROmorphone (Dilaudid) injection 0.2 mg 0.2 mg, [...] Given 10/31/2021 10:53 PM CDT 0.2 mg insulin glargine (Lantus) vial 19 Units [...] CDT 1 Units R ight Arm lidocaine 1% (Xylocaine-MPF) - EPINEPHrine 1:100,000 injection PRN, Starting on Mon10/30/21 at 1640, Until 10/30/21 at 1707, Intra-op $ Given 10/30/2021 4:40 PM CDT 2 mL Opera tive Site melatonin tablet 3 mg 3 mg, Oral, AT BEDTIME PRN, Insomnia, Starting on Mon11/02/21 at 1729, Until 11/06/21 at 1518 $ Given 11/02/2021 9:32 PM CDT 3 mg nystatin (Mycostatin) suspension 5 mL 5 mL, Swish and Spit, 4 TIMES DAILY, First dose on Mon11/03/21 at 1700, Until Discontinued, Swish in mouth as long as possible. Shake well prior to administration. $ Given 11/06/2021 8:23 AM CDT 5 mL $ Given 11/05/2021 9:52 PM CDT 5 mL $ Given 11/05/2021 5:05 PM CDT 5 mL oxybutynin (Ditropan) tablet 5 mg 5 mg, Oral, 3 TIMES DAILY, First dose on Mon10/30/21 at 1400, Until Discontinued $ Given 11/06/2021 [...] Given 11/05/2021 5:02 PM CDT 10 mg polyethylene glycol 3350 (Miralax) packet 17 [...] Mon11/02/21 at 1729, Until 11/06/21 at 1518 vancomycin (Vancocin) injection PRN, Starting on 10/30/21 at 1640, Until 10/30/21 at 1707, Indication for anti-infective therapy: Surgical prophylaxis, Intra-op $ Given 10/30/2021 4:40 PM CDT 1,000 mg Opera tive Site documented in this encounter Active and [...] English RN)1202 ($ Given - Provider: Kaylie Morgan RN)1702 ($ Given - Provider: Kaylie Morgan RN)1942 (Not Administered - Provider: Marimar English RN - Reason: See Comments) 0004 (Not [...] dose on 10/30/21 at 1200, Until Discontinued 0815 ($ Given - Provider: Ashleigh Ontiveros RN) 0830 ($ Given - Provider: Kaylie Morgan RN) 0823 ($ Given - Provider: Ashleigh Ontiveros RN) gabapentin (Neurontin) capsule 300 mg 300 mg, Oral, 3 TIMES DAILY, First dose on 11/01/21 at 0000, Until Discontinued 0816 ($ Given [...] dose on 10/30/21 at 2200, Until Discontinued 0639 ($ Given - Provider: Marimar English RN)1353 ($ Given - Provider: Aruna Boyd RN)2118 ($ Given - Provider: Marimar English RN) 0551 ($ Given - Provider: Marimar English RN)1403 ($ Given - Provider: Kaylie Morgan RN)2153 ($ Given - Provider: Marimar English RN) [...] Instructions) 0830 ($ Given - Provider: Kaylie Morgan, NURIS)1210 ($ Given - Provider: Kaylie Morgan, NURIS)1701 ($ Given - Provider: Kaylie Morgan, NURIS) 0823 ($ Given - Provider: Ashleigh Ontiveros, NURIS)1200 (Due) nystatin (Mycostatin) suspension 5 mL 5 mL, Swish and Spit, 4 TIMES DAILY, First dose on Mon11/03/21 at 1700, Until Discontinued, Swish in mouth as long as possible. Shake well prior to administration. 0815 ($ Given - Provider: Ashleigh Ontiveros RN)1300 (Not Administered - Provider: Ashleigh Ontiveros RN - Reason: Medication not available)1719 ($ Given - Provider: Ashleigh Ontiveros RN)2118 ($ Given - Provider: Marimar English RN) 0829 ($ Given - Provider: Kaylie Morgan RN)1202 ($ Given - Provider: Kaylie Morgan RN)1705 ($ Given - Provider: Kaylie Morgan RN)215 ($ Given - Provider: Marimar English RN) 0823 ($ Given - Provider: Ashleigh Ontiveros RN)1300 (Due) oxybutynin (Ditropan) tablet 5 mg 5 mg, Oral, 3 TIMES DAILY, First dose on 10/30/21 at 1400, Until Discontinued 08 ($ Given - Provider: Ashleigh Ontiveros RN)1353 [...] HOURS PRN, Heartburn, GI Upset, Starting on 11/02/21 at 1729, Until 11/06/21 at 1518 cyclobenzaprine (Flexeril) tablet 10 mg 10 mg, Oral, 3 TIMES DAILY PRN, Muscle Spasms, Starting on 10/31/21 at 2358, Until 11/06/21 at 1518 1123 ($ Given - Provider: Ashleigh Ontiveros, NURIS) 1021 ($ Given - Provider: Kaylie Morgan, RN)1702 ($ Given - Provider: Kaylie Morgan, RN) 0652 ($ Given - Provider: Marimar [...] HOURS PRN, Itching, Allergies, Insomnia, Starting on 11/02/21 at 1729, Until 11/06/21 at 1518 glucagon [...] if unable to take PO, Starting on Mon10/31/21 at 2136, Until 11/06/21 at 1518, Patient preference for lesser PRN pain meds may be honored when the patient requests a less strong medication, a lower dose, or a less intrusive route of administration when the lesser drug, dose and route have been ordered for the patient. This patient request must be documented in the JUN. 1403 ($ Given - Provider: Kaylie Morgan [...] request must be documented in the JUN. 0417 ($ Given - Provider: Marimar English RN)1043 ($ Given - Provider: Aruna Boyd RN) 0223 ($ Given - Provider: Marimar English RN)1021 ($ Given - Provider: Kaylie Morgan, NURIS)1702 ($ Given - Provider: Kaylie Morgan, NURIS) 0308 ($ Given - Provider: Marimar English RN)0913 ($ Given - Provider: Ashleigh Ontiveros RN) polyethylene glycol 3350 (Miralax) packet 17 [...] EVENT. documented in this encounter Care Teams Pneumatic Riveter Relationship Specialty Start Date End Date Justen Gale MD PCP - General 07/05/21 documented as of this encounter
--- OUTSIDE RECORDS SUMMARY | 2024-04-26 02:33 | XMS_ITS | Encounter Summary ---
Author Organization [facility] Address [address] [place] [address] Care Team Providers Care Supervisor Porcelain Department Name Role Phone Justen Gale MD Primary Care Provider [phone] Reason for Visit * Reason Onset Date Comments Transitions Of Care 11/11/2021 Encounter Details Date Type Department Care Team (Late st Contact Info) Description 11/11/[address] [facility] CARE COORDINATION [address] [place] [id number] Bianca Daugherty, RN Transitions Of Care Social [...] Telephone Encounter - Bianca Daugherty RN - 11/11/2021 10:24 AM CDT Transition Process Machine Operator (TCC) post discharge follow-up contact by telephone: Patient with recent IP discharge from [facility] on 11/06/21. This patient contacted TCC by telephone ([phone]) in regards to a voicemail she received, TCC spoke with patient on 11/08/21. 1) Any questions or concerns that we can help you with? Karly Velez said that she had a questionabout her PICC line, she said that last night during the night she noticed that she was having quite a bit of discomfort in her PICC line site. Patient said that this is better this morning but she is concerned that there is something going on with the PICC. Karly Velez was advised to contact her PCP as well as home health nurse to notify of this and she was agreeable. Call Duration: 3 minutes Bianca Daugherty RN, BSN Transition Process Machine Operator Office: [phone] 11/11/2021 documented in this encounter Plan of Treatment Not on file documented as of this encounter Visit Diagnoses Not on filedocumented in this encounter Care Teams Supervisor Porcelain Department Relationship Specialty Start Date End Date Justen Gale MD PCP - General 07/05/21 documented as of this encounter
--- OUTSIDE RECORDS SUMMARY | 2024-04-26 02:33 | XMS_ITS | Encounter Summary ---
Author Organization [facility] Address [address] [place] [address] Care Team Providers Care Body Designer Name Role Phone Justen Gale MD Primary Care Provider [phone] Reason for Visit * Reason Onset Date Comments Transitions Of Care 11/08/2021 Encounter Details Date Type Department Care Team (Late st Contact Info) Description 11/08/2021 Telephone [facility] CARE COORDINATION [address] [place] [id number] Bianca Daugherty, RN Transitions Of Care Social [...] Encounter - Bianca Daugherty RN - 11/08/2021 2:58 PM CDT Transition Director Of Analytics (TCC) 1-2 week post discharge follow-up contact by telephone: Patient with recent IP discharge from [facility] on 11/06/21 and had Basic Needs Assessment (BNA) score < 16 (score of 13). As such, Patient receiving 1-2 week follow-up call. This TCC contacted Karly Marques by telephone ([phone]) to complete 1-2 week post-discharge follow-up contact. 1) How are you feeling? Karly Marques said that she is not feeling too well. 2) How is your mobility? Karly Marques said that she is getting around with help, she said that she is still feeling weak. 3) New concerns or problems? Karly Marques said that she is not taking fluids like she feels likeshe should be. 4) Have you had to go the ER for any reason? Karly Marques has not had to go to the ED for any reason. 5) Any questions about your discharge diagnosis and instructions? Karly Marques does not have questions about her discharge diagnosis or instructions. 6) Do you have a follow up appointment made? Karly Marques has a follow up with her PCP on 11/09/21. 7) Do you currently have home health, any questions about home care? Karly Marques said that she was seen by home health on 11/07/21. 8) Have you filled all of your RX's? Karly Marques has filled her discharge prescriptions. 9) Any questions or concerns that we can help you with? Karly Marques does not have any questionsor concerns at this time. aKrly Marques verbalized that she is not feeling to well. She is seeing her PCP on 11/09/21 because she said that she is not taking fluids like she should be and her appetite is not great. She is taking small sips of fluids and is able to tolerate the small sips. TCC inquired re: whether Patient has had any problems or questions since discharge on 11/06/21. Karly Marques indicated she was able to obtain all of discharge medications without incident. Karly Marques indicated she is taking allmedications as prescribed. No new symptoms related to discharge diagnosis and stated she feels veryweak. Karly Marques denied any current medical and psychosocial needs. Patient Karly Marques denied any unscheduled visits to the ER, hospital, or urgent care since discharge. Karly Marques denied any questions related to diet, medications, or condition at this time. TCC encouraged Karly Marques to call this grant writer with questions, concerns, barriers to care, and/or additional resources ifneeded. Karly Marques verbalized understanding and agreement with plan. TCC will continue to provide post-discharge monitoring for 30 days post-discharge with target end date of program and intervention(s) set for 12/06/21. No follow-up needs identified or indicated at this time. Call Duration: 6 minutes Bianca Daugherty RN, BSN Transition Director Of Analytics Office: [phone] 11/08/2021 documented in this encounter Plan of Treatment Not on file documented as of this encounter Visit Diagnoses Not on filedocumented in this encounter Care Teams Body Designer Relationship Specialty Start Date End Date Justen Gale MD PCP - General 07/05/21 documented as of this encounter
--- OUTSIDE RECORDS SUMMARY | 2024-04-26 02:34 | XMS_ITS | Encounter Summary ---
Author Organization [facility] Address [address] [place] [address] Care Team Providers Care Curriculum Assistant Name Role Phone Antoinette Zhu MD Primary Care Provider [phone] Encounter Details Date Type Department Care Team (Latest Contact Info) Description 12/16/2011 Hospital Outpatient Visit [facility] MRI OP [address] [place] [phone] Discharge Disposition: Home or Self Care Social History Tobacco Use Types Packs/Day Years Used Date Smoking Tobacco: Never Assessed Sex and Gender Information Value Date Recorded Sex Assigned at Not on file Gender Identity Not on file Sexual Orientation Not on file documented as of this encounter Plan of Treatment Not on file documented as of this encounter Procedures Procedure Name Priority Date/Time Associated Diagnosis Comments MRI LUMBAR SPINE WO CONTRAST Routine 12/16/2011 3:29 PM CDT documented in this encounter Results * MRI LUMBAR SPINE WO CONTRAST (12/16/2011 [...] asdetailed above. Nixon Moreno MD MR ORDERABLES documented in this encounter Visit Diagnoses Diagnosis Low back pain Lumbago documented in this encounter Care Teams Curriculum Assistant Relationship Specialty Start Date End Date Antoinette Zhu MD [address] [place] [phone] PCP - General 10/21/11 07/04/21 documented as of this encounter
--- OUTSIDE RECORDS SUMMARY | 2024-04-26 02:34 | XMS_ITS | Encounter Summary ---
Author Organization [facility] Address [address] [place] [address] Care Team Providers Care Mechanical Specialist Name Role Phone Justen Gale MD Primary Care Provider [phone] Reason for Visit * Reason Comments Establish Care SCS CONSULT * Consult, Test & Treat (Routine) - Closed Specialty Diagnoses / Procedures Referred By Elyssa t Referred To Contact Neurological Surgery Diagnoses Radiculopathy, lumbar region SCS Implantation lubar Cardenas successful Joan Sanchez, AUTOMOBILE MECHANIC MOTOR-LACE SEWER [address] [place] [address] Maxi Gregg MD [address] [facility] [address] [place] [address] Referral ID Status Reason Start Date Expiration Date Visits Re quested Visits Authorized [id number] Closed 06/07/2021 06/07/2022 1 1 Encounter Details Date Type Department Care Team (Late st Contact Info) Description 07/05/2021 1:00 PM CDT Office Visit [facility] [facility], [address] [place] [address] Maxi Gregg MD [address] [facility] [address] [place] [address] Chronic bilateral low back pain, unspecified whether sciatica present (Primary Dx) Social History Tobacco Use Types [...] Sign Reading Time Taken Comments Blood Pressure 173/81 07/05/2021 1:08 PM CDT Pulse 89 07/05/2021 1:08 PM CDT Temperature 36.6 ??C (97.8 ??F) 07/05/2021 1:08 PM CD T Respiratory Rate - - Oxygen Saturation 98% 07/05/2021 1:08 PM CDT Inhaled Oxygen Concentration - - Weight 127 kg (280 lb) 07/05/2021 1:08 PM CDT Height 154.9 cm (5' 1 ) 07/05/2021 1:08 PM CDT Body Mass Index 52.91 07/05/2021 1:08 PM CDT documented in this encounter Patient Instructions * Patient Instructions* Summer Amato - 07/05/2021 1:24 PM CDT To schedule an appointment please call [phone]. To reach the [facility] office please call [phone]. For any nursing or surgery questions please call NURIS Lyon at [phone]. documented in this encounter Progress Notes * Maxi Gregg MD - 07/05/2021 4:07 PM CDT NAME: MOHSEN SALAZAR : 1955 AGE: 66 PROVIDER: Maxi Gregg MD SEX: F DATE: 07/05/2021 I had the pleasure of evaluating Mrs. Salazar in the neurosurgery office today. HISTORY OF PRESENT ILLNESS: Mrs. Salazar is a very pleasant 66-year-old lady with a very complex history from the pain management standpoint. The patient reports refractory chronic axial low back pain. She has been treated by Dr. Samaniego and has not improved with injections as well as extensive conservative treatment including more than 6 weeks of physical therapy. She also reports some occasional leg pain. Fortunately, the patient had a recent trial with a dorsal column stimulation system with significant improvement of her symptoms; therefore, she comes today for discussion of the surgery forplacement of the final implant. Social History Socioeconomic History ??? Marital status: Spouse name: Not on file ??? Number of children: Not on file ??? Years of education: Not on file ??? Highest education level: Not on file Occupational History ??? Not on file Tobacco Use ??? Smoking status: Former Smoker Packs/day: 0.50 Quit date: 12/05/1977 Years since quittin.6 ??? Smokeless tobacco: Never Used Substance and Sexual Activity ??? Alcohol use: [...] on file Housing Stability: Not on file No past medical history on file. Past Surgical History: Procedure Laterality Date ??? Section ??? Cholecystectomy, Laparoscopic ??? Hernia Repair ??? Knee Arthroscopy bilateral ??? Mastectomy Family History Problem Relation Name Age of Onset ??? Heart Disease Mother ??? Diabetes Mother ??? Cancer Father ??? Hemochromatosis Father ??? Cancer Sister ??? Heart Disease Brother Current Medications Acetaminophen-Codeine 300-30 MG acetaminophen 300 mg-codeine 30 mg tablet albuterol HFA (PROAIR HFA) 108 (90 Base) MCG/ACT inhaler ProAir HFA 90 mcg/actuation aerosol inhaler albuterol HFA (PROVENTIL; VENTOLIN; PROAIR) 108 (90 Base) MCG/ACT inhaler INHALE 2 PUFFS INTO LUNGSBY MOUTH EVERY 4 HOURS NEEDED FOR WHEEZING OR SHORTNESS OF BREATH amitriptyline (ELAVIL) 25 MG tablet amitriptyline 25 mg tablet amoxicillin (AMOXIL) 875 MG tablet Take 875 mg by mouth every 8 hours anastrozole (ARIMIDEX) 1 MG tablet anastrozole 1 mg tablet aspirin (ASPIRIN) 325 MG tablet Take 325 mg by mouth once daily azithromycin (ZITHROMAX) 250 MG tablet azithromycin 250 mg tablet B-D ULTRAFINE III SHORT PEN 31G X 8 MM needle USE 6 TIMES DAILY DIRECTED baclofen (LIORESAL) 10 MG tablet baclofen 10 mg tablet ciprofloxacin (CIPRO) 500 MG tablet ciprofloxacin 500 mg tablet clindamycin (CLEOCIN) 150 MG capsule clindamycin HCl 150 mg capsule clotrimazole-betamethasone (LOTRISONE) 1-0.05 % cream clotrimazole-betamethasone 1 %-0.05 % topicalcream APPLY TOPICALLY TO AFFECTED AND SURROUNDING AREAS BID IN THE MORNING AND EVENING X 2 WEEKS dapagliflozin propanediol (FARXIGA) 5 MG tablet every 24 hours dexAMETHasone (DECADRON) 4 MG tablet dexamethasone 4 mg tablet TAKE TWO TABLETS PO IN THE MORNING DAY AFTER CHEMO WHICH IS DAY 2 TAKE TWO TABLETS IN MORNING AND TWO TABLETS AT NIGHT ON DAY 3 AND 4 diazePAM (VALIUM) 5 MG tablet diazepam 5 mg tablet TK 1 T PO Q NIGHT PRN FOR MUSCLE SPASMS diclofenac sodium EC (VOLTAREN) 75 MG tablet Take 75 mg by mouth 2 times daily as needed doxycycline monohydrate 100 MG capsule doxycycline monohydrate 100 mg capsule DULoxetine (CYMBALTA) 20 MG capsule Cymbalta 20 mg capsule,delayed release exemestane (AROMASIN) 25 MG tablet Take 25 mg by mouth DAILY. famotidine (PEPCID) 20 MG tablet Take 20 mg by mouth 2 times daily gabapentin (NEURONTIN) 300 MG capsule gabapentin 300 mg capsule HUMALOG KWIKPEN 100 UNIT/ML pen ADMINISTER 22 UNITS BEFORE EACH MEAL. MAX DAILY DOSE OF 120 UNITS HYDROcodone-acetaminophen (NORCO) 5-325 MG tablet hydrocodone 5 mg-acetaminophen 325 mg tablet hydrOXYzine HCl (ATARAX) 25 MG tablet hydroxyzine HCl 25 mg tablet ibuprofen (MOTRIN) 600 MG tablet ibuprofen 600 mg tablet TK 1 T PO Q 6 H PRN insulin glargine (LANTUS SOLOSTAR) pen Lantus Solostar U-100 Insulin 100 unit/mL (3 mL) subcutaneous pen insulin lispro (HUMALOG KWIKPEN) 100 UNIT/ML pen Humalog KwikPen (U-100) Insulin 100 unit/mL subcutaneous insulin lispro (HUMALOG) 100 UNIT/ML vial Inject 20-22 Units subcutaneously insulin pen needle (B-D ULTRAFINE III SHORT PEN) 31G X 8 MM needle USE 6 TIMES DAILY DIRECTED Lancets (ONETOUCH DELICA PLUS 33G EXTRA FINE LANCET) USE FOUR TIMES DAILY LANTUS SOLOSTAR pen ADMINISTER 50 UNITS UNDER THE SKIN EVERY MORNING levoFLOXacin (LEVAQUIN) 250 MG tablet levofloxacin 250 mg tablet lidocaine-prilocaine (EMLA) 2.5-2.5 % cream lidocaine-prilocaine 2.5 %-2.5 % topical cream APPLY TO PORT 1 HOUR BEFORE CHEMO AND COVER WITH PLASTIC WRAP lisinopril (PRINIVIL; ZESTRIL) 20 MG tablet Take 20 mg by mouth DAILY. LORazepam (ATIVAN) 0.5 MG tablet lorazepam 0.5 mg tablet methylPREDNISolone (MEDROL DOSEPAK) 4 MG tablet FOLLOW PACKAGE DIRECTIONS metoclopramide (REGLAN) 10 MG tablet metoclopramide 10 mg tablet metoprolol tartrate (LOPRESSOR) 25 MG tablet metoprolol tartrate 25 mg tablet metroNIDAZOLE (FLAGYL) 500 MG tablet metronidazole 500 mg tablet mirabegron ER 24hr (MYRBETRIQ) 25 MG tablet Take 25 mg by mouth once daily morphine IR (MSIR) 15 MG tablet morphine 15 mg immediate release tablet mupirocin (BACTROBAN) 2 % ointment mupirocin 2 % topical ointment MYRBETRIQ 25 MG tablet Take 25 mg by mouth once daily naloxone HCl (NARCAN) 4 MG/0.1ML nasal spray CALL 911. SPR CONTENTS OF ONE SPRAYER (0.1ML) INTO ONENOSTRIL. REPEAT IN 2-3 MIN IF SYMPTOMS OF OPIOID EMERGENCY PERSIST, ALTERNATE NOSTRILS nitrofurantoin monohyd macro crystals (MACROBID) 100 MG capsule nitrofurantoin monohydrate/macrocrystals 100 mg capsule omeprazole (PRILOSEC) 40 MG capsule omeprazole 40 mg capsule,delayed release TK 1 C PO D ondansetron (ZOFRAN) 4 MG tablet ondansetron HCl 4 mg tablet ondansetron (ZOFRAN) 8 MG tablet ondansetron HCl 8 mg tablet OneTouch Delica Lancets 33G MISC Use 4 times daily ConnectTo[employer] ULTRA test strip 4 times daily oxybutynin (DITROPAN) 5 MG tablet Take 5 mg by mouth TID. oxyCODONE-acetaminophen (PERCOCET) 5-325 MG tablet oxycodone-acetaminophen 5 mg- 325 mg tablet pantoprazole EC (PROTONIX) 40 MG tablet pantoprazole 40 mg tablet,delayed release prochlorperazine (COMPAZINE) 10 MG tablet prochlorperazine maleate 10 mg tablet rivaroxaban (XARELTO) 10 MG tablet Take 20 mg by mouth daily with dinner. rOPINIRole (REQUIP) 1 MG tablet every 24 hours rOPINIRole (REQUIP) 5 MG tablet TAKE 1 TABLET BY MOUTH EVERY NIGHT selenium sulfide (SELSUN) 2.5 % lotion selenium sulfide 2.5 % shampoo APPLY TO THE AFFECTED AREAS BY TOPICAL ROUTE TWICE WEEKLY LATHER LEAVE ON 10 MINUTES AND RINSE OFF SITagliptin-metFORMIN (JANUMET) 50-1000 MG tablet Take by mouth. sucralfate (CARAFATE) 1 GM tablet Take 1 g by mouth 4 times daily sulfamethoxazole-trimethoprim (BACTRIM DS; SEPTRA DS) 800-160 MG tablet Take 1 tablet by mouth every 12 hours PHYSICAL EXAMINATION: The patient is in mild discomfort, but in no acute distress. She has full strength in the upper and lower limbs for all tested muscles. Reflexes are physiologic and symmetric at1+ in the upper and lower limbs. Sensation is normal in the upper and lower limbs. She has several m yofascial tender points on palpation of the paraspinal muscles in the posterior lumbar region. REVIEW OF DIAGNOSTIC STUDIES: The patient had an MRI of the thoracic spine performed on 12/01/2020,which demonstrated small disk protrusions at the level of T9-T10, T8-T9 and T7-T6; however, withoutsignificant central canal stenosis. Previous MRI of the lumbar spine demonstrated advanced spondylotic changes without significant central canal or foraminal stenosis. X-rays during the trial demonstrated adequate stimulation with the paddle covering the whole T8 vertebral body. MEDICAL DECISION MAKING: I told the patient that she presents with a challenging condition with refractory chronic axial low back pain. Fortunately, the patient had significant improvement with a trial with a dorsal column stimulation system; therefore, I told her she would have the option of proceeding with a T8- T9 laminectomy for placement of a dorsal column stimulation system and placement of the battery in the right lower lumbar region. I explained to her the risks and the benefits of the surgical procedure as well as possible associated complications such as weakness, paralysis, persistence of the pain, hardware failure, and infection with need for removal of the whole system. The patient would like to proceed with the proposed surgical intervention, which will be scheduled for the near future. Thank you for allowing us to participate in the care of your patient. [email or web address] Doc ID: [id number] Voice Job ID: [id number] cc: documented in this encounter Plan of Treatment Not on file documented as of this encounter Visit Diagnoses Diagnosis Chronic bilateral low back pain, unspecified whether sciatica present- Primary documented in this encounter Care Teams Mechanical Specialist Relationship Specialty Start Date End Date Justen Gale MD PCP - General 07/05/21 documented as of this encounter
--- OUTSIDE RECORDS SUMMARY | 2024-04-26 02:34 | XMS_ITS | Encounter Summary ---
Author Organization [facility] Address [address] [address] Care Team Providers Care Phototypesetting Equipment Monitor Name Role Phone Justen Gale MD Primary Care Provider [phone] Reason for Visit * Auth/Cert Specialty Diagnoses / Procedures Referred By Elyssa t Referred To Contact Diagnoses Diagnosis unknown Diagnosis unknown [R69] Procedures LAMINECTOMY THORACIC Referral ID Status Reason Start Date Expiration Date Visits Re quested Visits Authorized [id number] 1 1 Encounter Details Date Type Department Care Team (Late st Contact Info) Description 09/16/2021 7:30 AM CDT - 09/16/2021 10:17 AM CDT Surgery [facility] [address] [place] [address] Maxi Gregg MD [address] [place] [address] [place] [id number] THORACIC EIGHT- THORACIC NINE LAMINECTOMY FOR PLACEMENT OF A DORSAL COLUMN STIMULATION SYSTAM AND PLACEMENT OF THE BATTERY IN THE LOWER LUMBAR REGION Surgery Details Date/Time Status Location OR Service Patient Class Case Class Case Type Trauma Case? 09/16/2021 7:30 AM Posted [facility] OR OR 07 Neurosurgery Surgery Day Care Over Night Elective > 5 days Panel 1 Procedure LRB Anes Op Region Wound Class Comments THORACIC EIGHT- THORACIC PHILIP E LAMINECTOMY FOR PLACEMENT OF A DORSAL COLUMN STIMULATION SYSTAM AND PLACEMENT OF THE BATTERY IN THE LOWER LUMBAR REGION Right General Spine Thoracic Clean Surgeon Surgeon Role Service Panel Maxi Gregg MD Primary Neurosurgery 1 Special Needs ## LATEX ALLERGY## NEEDS C-ARM, SPECIALTY ORACLE APEX DEVELOPER NOTIFIED PER OFFICE(JEY) WITH A CONFIRMATION # [id number]- 08/16 TM, SAVAGE REP (RODRÍGUEZ [phone]) NOTIFIED PER OFFICE(JEY) 08/16 TM / SURGEON WANTS PATIENT IN PRONE POSITION FOR PROCEDURECase mary jane el with Rodríguez 09-14-2021-MAB documented in this encounter Social History Tobacco [...] Sign Reading Time Taken Comments Blood Pressure 147/77 09/16/2021 10:15 AM CDT Pulse 78 09/16/2021 10:15 AM CDT Temperature 36.1 ??C (97 ??F) 09/16/2021 9:59 AM CDT Respiratory Rate 14 09/16/2021 10:15 AM CDT Oxygen Saturation 95% 09/16/2021 10:15 AM CDT Inhaled Oxygen Concentration - - Weight 129.3 kg (285 lb) 09/16/2021 6:53 AM CDT Height 154.9 cm (5' 1 ) 09/16/2021 6:53 AM CDT Body Mass Index 53.85 09/16/2021 6:53 AM CDT documented in this encounter Medications at Time [...] 09/16/2021 10/01/2021 documented as of this encounter Progress Notes * Remi Thakur MD - 09/16/2021 3:21 PM CDT Patient contacted Neurosurgery regarding redness and pain in her wound. Endorses raised bumps around wound with redness and pain. Denies any fever, chills, wound drainage, fluid collections. Went to OSH ER where it was determined wound was not infected. Thought to be possible allergic reaction to wound dressing. Originally recommended antihistamine and to come to ER if wound did not improve. After further discussion with darlene Traylor ld rather have patient come to ER immediately for evaluation. Attempted to contact patient multiple times with no reply. Will continue to contact. Remi Thakur MD documented in this encounter H&P Notes * Maxi Gregg MD - 09/16/2021 7:09 AM CDT NAME: MOHSEN SALAZAR : 1955 AGE: 66 PROVIDER: Maxi Gregg MD SEX: F ?? HISTORY OF PRESENT ILLNESS: Mrs. Salazar is a very pleasant 66-year-old lady with a very complex history from the pain management standpoint. The patient reports refractory chronic axial low back pain. She has been treated by pain management and has not improved with injections as well as extensiveconservative treatment including more than 6 weeks of physical therapy. She also reports some occasional leg pain. Fortunately, the patient had a recent trial with a dorsal column stimulation system with significant improvement of her symptoms; therefore, she comes today for discussion of the surgery for placement of the final implant. ?? Social History ?? Socioeconomic History ??? Marital status: ? Spouse name: Not on file ??? Number of children: Not on file ??? Years of education: Not on file ??? Highest education level: Not on file Occupational History ??? Not on file Tobacco Use ??? Smoking status: Former Smoker ? Packs/day: 0.50 ? Quit date: 12/05/1977 ? Years since quittin.6 ??? Smokeless tobacco: Never Used Substance and Sexual Activity ??? Alcohol use: No ??? Drug use: No ??? Sexual activity: Not on file Other Topics Concern ??? Not on file Social History Narrative ??? Not on file ?? Social Determinants of Health ?? Financial Resource Strain: Not on file Food Insecurity: Not on file Transportation Needs: Not on file Physical Activity: Not on file Stress: Not on file Social Connections: Not on file Intimate Partner Violence: Not on file Housing Stability: Not on file ?? No past medical history on file. Past Surgical History: Procedure Laterality Date ??? Section ? Cholecystectomy, Laparoscopic ? Hernia Repair ? Knee Arthroscopy ? bilateral ??? Mastectomy ? Family History Problem Relation Name Age of Onset ??? Heart Disease Mother ? Diabetes Mother ? Cancer Father ? Hemochromatosis Father ? Cancer Sister ? Heart Disease Brother ? Current Medications ? Acetaminophen-Codeine 300-30 MG acetaminophen 300 mg-codeine 30 mg tablet ?? albuterol HFA (PROAIR HFA) 108 (90 Base) MCG/ACT inhaler ProAir HFA 90 mcg/actuation aerosol inhaler ?? albuterol HFA (PROVENTIL; VENTOLIN; PROAIR) 108 (90 Base) MCG/ACT inhaler INHALE 2 PUFFS INTO LUNGS BY MOUTH EVERY 4 HOURS NEEDED FOR WHEEZING OR SHORTNESS OF BREATH ?? amitriptyline (ELAVIL) 25 MG tablet amitriptyline 25 mg tablet ?? amoxicillin (AMOXIL) 875 MG tablet Take 875 mg by mouth every 8 hours ?? anastrozole (ARIMIDEX) 1 MG tablet anastrozole 1 mg tablet ?? aspirin (ASPIRIN) 325 MG tablet Take 325 mg by mouth once daily ?? azithromycin (ZITHROMAX) 250 MG tablet azithromycin 250 mg tablet ?? B-D ULTRAFINE III SHORT PEN 31G X 8 MM needle USE 6 TIMES DAILY DIRECTED ?? baclofen (LIORESAL) 10 MG tablet baclofen 10 mg tablet ?? ciprofloxacin (CIPRO) 500 MG tablet ciprofloxacin 500 mg tablet ?? clindamycin (CLEOCIN) 150 MG capsule clindamycin HCl 150 mg capsule ?? clotrimazole-betamethasone (LOTRISONE) 1-0.05 % cream clotrimazole- betamethasone 1 %-0.05 % topical cream APPLY TOPICALLY TO AFFECTED AND SURROUNDING AREAS BID IN THE MORNING AND EVENING X 2 WEEKS ?? dapagliflozin propanediol (FARXIGA) 5 MG tablet every 24 hours ?? dexAMETHasone (DECADRON) 4 MG tablet dexamethasone 4 mg tablet TAKE TWO TABLETS PO IN THE MORNING DAY AFTER CHEMO WHICH IS DAY 2 TAKE TWO TABLETS IN MORNING AND TWO TABLETS AT NIGHT ON DAY 3 AND 4 ?? diazePAM (VALIUM) 5 MG tablet diazepam 5 mg tablet TK 1 T PO Q NIGHT PRN FOR MUSCLE SPASMS ?? diclofenac sodium EC (VOLTAREN) 75 MG tablet Take 75 mg by mouth 2 times daily as needed ?? doxycycline monohydrate 100 MG capsule doxycycline monohydrate 100 mg capsule ?? DULoxetine (CYMBALTA) 20 MG capsule Cymbalta 20 mg capsule,delayed release ?? exemestane (AROMASIN) 25 MG tablet Take 25 mg by mouth DAILY. ?? famotidine (PEPCID) 20 MG tablet Take 20 mg by mouth 2 times daily ?? gabapentin (NEURONTIN) 300 MG capsule gabapentin 300 mg capsule ?? HUMALOG KWIKPEN 100 UNIT/ML pen ADMINISTER 22 UNITS BEFORE EACH MEAL. MAX DAILY DOSE OF 120 UNITS ?? HYDROcodone-acetaminophen (NORCO) 5-325 MG tablet hydrocodone 5 mg- acetaminophen 325 mg tablet ?? hydrOXYzine HCl (ATARAX) 25 MG tablet hydroxyzine HCl 25 mg tablet ?? ibuprofen (MOTRIN) 600 MG tablet ibuprofen 600 mg tablet TK 1 T PO Q 6 H PRN ?? insulin glargine (LANTUS SOLOSTAR) pen Lantus Solostar U-100 Insulin 100 unit/mL (3 mL) subcutaneous pen ?? insulin lispro (HUMALOG KWIKPEN) 100 UNIT/ML pen Humalog KwikPen (U-100) Insulin 100 unit/mL subcutaneous ?? insulin lispro (HUMALOG) 100 UNIT/ML vial Inject 20-22 Units subcutaneously ?? insulin pen needle (B-D ULTRAFINE III SHORT PEN) 31G X 8 MM needle USE 6 TIMES DAILY DIRECTED ?? Lancets (ONETOUCH DELICA PLUS 33G EXTRA FINE LANCET) USE FOUR TIMES DAILY ?? LANTUS SOLOSTAR pen ADMINISTER 50 UNITS UNDER THE SKIN EVERY MORNING ?? levoFLOXacin (LEVAQUIN) 250 MG tablet levofloxacin 250 mg tablet ?? lidocaine-prilocaine (EMLA) 2.5-2.5 % cream lidocaine-prilocaine 2.5 %-2.5 % topical cream APPLY TO PORT 1 HOUR BEFORE CHEMO AND COVER WITH PLASTIC WRAP ?? lisinopril (PRINIVIL; ZESTRIL) 20 MG tablet Take 20 mg by mouth DAILY. ?? LORazepam (ATIVAN) 0.5 MG tablet lorazepam 0.5 mg tablet ?? methylPREDNISolone (MEDROL DOSEPAK) 4 MG tablet FOLLOW PACKAGE DIRECTIONS ?? metoclopramide (REGLAN) 10 MG tablet metoclopramide 10 mg tablet ?? metoprolol tartrate (LOPRESSOR) 25 MG tablet metoprolol tartrate 25 mg tablet ?? metroNIDAZOLE (FLAGYL) 500 MG tablet metronidazole 500 mg tablet ?? mirabegron ER 24hr (MYRBETRIQ) 25 MG tablet Take 25 mg by mouth once daily ?? morphine IR (MSIR) 15 MG tablet morphine 15 mg immediate release tablet ?? mupirocin (BACTROBAN) 2 % ointment mupirocin 2 % topical ointment ?? MYRBETRIQ 25 MG tablet Take 25 mg by mouth once daily ?? naloxone HCl (NARCAN) 4 MG/0.1ML nasal spray CALL 911. SPR CONTENTS OF ONE SPRAYER (0.1ML) INTO ONE NOSTRIL. REPEAT IN 2-3 MIN IF SYMPTOMS OF OPIOID EMERGENCY PERSIST, ALTERNATE NOSTRILS ?? nitrofurantoin monohyd macro crystals (MACROBID) 100 MG capsule nitrofurantoin monohydrate/macrocrystals 100 mg capsule ?? omeprazole (PRILOSEC) 40 MG capsule omeprazole 40 mg capsule,delayed release TK 1 C PO D ?? ondansetron (ZOFRAN) 4 MG tablet ondansetron HCl 4 mg tablet ?? ondansetron (ZOFRAN) 8 MG tablet ondansetron HCl 8 mg tablet ?? OneTouch Delica Lancets 33G MISC Use 4 times daily ?? ONETOUCH ULTRA test strip 4 times daily ?? oxybutynin (DITROPAN) 5 MG tablet Take 5 mg by mouth TID. ?? oxyCODONE-acetaminophen (PERCOCET) 5-325 MG tablet oxycodone-acetaminophen 5 mg-325 mg tablet ?? pantoprazole EC (PROTONIX) 40 MG tablet pantoprazole 40 mg tablet,delayed release ?? prochlorperazine (COMPAZINE) 10 MG tablet prochlorperazine maleate 10 mg tablet ?? rivaroxaban (XARELTO) 10 MG tablet Take 20 mg by mouth daily with dinner. ?? rOPINIRole (REQUIP) 1 MG tablet every 24 hours ?? rOPINIRole (REQUIP) 5 MG tablet TAKE 1 TABLET BY MOUTH EVERY NIGHT ?? selenium sulfide (SELSUN) 2.5 % lotion selenium sulfide 2.5 % shampoo APPLY TO THE AFFECTED AREAS BY TOPICAL ROUTE TWICE WEEKLY LATHER LEAVE ON 10 MINUTES AND RINSE OFF ?? SITagliptin-metFORMIN (JANUMET) 50-1000 MG tablet Take by mouth. ?? sucralfate (CARAFATE) 1 GM tablet Take 1 g by mouth 4 times daily ?? sulfamethoxazole-trimethoprim (BACTRIM DS; SEPTRA DS) 800-160 MG tablet Take 1 tablet by mouth every 12 hours ?? PHYSICAL EXAMINATION: The patient is in mild [...] paraspinal muscles in the posterior lumbar region. ?? REVIEW OF DIAGNOSTIC STUDIES: The patient had [...] paddle covering the whole T8 vertebral body. ?? MEDICAL DECISION MAKING: I told the patient [...] need for removal of the whole system. PLAN: Proceed to OR for thoracic eight to thoracic nine laminectomy for placement of a dorsal column stimulation system and placement of the battery in the right lower lumbar region ?? documented in this encounter OR Notes * Operative - Maxi Gregg MD - 09/16/2021 8:17 AM CDT [facility] ?Operative Report ?? PATIENT NAME: MOHSEN SALAZAR ?MR#:??[id number] DATE OF :?1955?CSN:?[id number] ?? DATE OF ADMISSION: ??09/16/2021?ROOM#: ??[facility] ?INTRAOP DATE OF OPERATION: ??09/16/2021? PREOPERATIVE DIAGNOSIS: Refractory chronic axial back??and leg pain ?? POSTOPERATIVE DIAGNOSIS: Refractory chronic axial back??and leg pain ?? PROCEDURE PERFORMED: T8-T9??laminectomy for placement of dorsal column stimulation system and placement of the battery in the right??lower lumbar region. ?? SURGEON: Maxi Gregg M.D. ?? ANESTHESIA: General anesthesia. ?? INTRAOPERATIVE BLOOD LOSS: 50??mL. ?? COMPLICATIONS: No intraoperative complications. ?? HARDWARE: Savage Burst DR ?? PROCEDURE: The patient under anesthesia was placed in prone position on??a??Mundo table with chest and hip pads. ??Baseline neuromonitoring with SSEPs, MEPs, and spontaneous EMGs was obtained. ??Then, x-ray was brought in place in order to localize the level of T8-T9. The wound in the posterior thoracic region??and right??lower lumbar region??were??prepped and draped. ??A midline incision of approximately??5??cm was performed??at the level of??T8-T9.??Monopolar was used for dissection of subcutaneous tissues??as well as paraspinal muscles bilaterally exposing the bilateral laminae??of?? T8??and T9.?Then, x-ray was brought in place confirming??that to be the correct level. ??Then, the??spinous processes??of??T9??and??the??bottom??of??T8 were??removed with??a??Tiago jang.?Then, the bilateral laminae??were drilled. ??Ligamentum flavum was dissected from the dura and resected.??Then the paddle lead was slid under the lamina??until??its??bottom was at the T8-T9??disc space.??Floseal was used for epidural hemostasis.?AP and lateral fluoroscopy demonstrated adequate position of the paddle??at??the midline. Then, the wires were connected to??an??external battery. ??Right-sided stimulation revealed??predominantly??right side??responses and??left-sided stimulation??left side??responses. ??Then 2 pieces??of plastic were??used in order to attach the wires to the interspinous ligament at the level of??T9. ??The??pieces of plastic??were sutured with a Prolene 3-0. ??Then, a transverse incision of approximately 4 cm was performed in the??right??lower lumbar region. Monopolar was used for dissection of the subcutaneous tissue?with creation of a pocket for??allocation of the battery. ??Then the wires were tunneled from the posterior thoracic region to the right??lower lumbar region. The wires connected to the battery. ??The whole system was tested??and verified to be working. Then??the midline wound was??copiously irrigated??with??Irrisept.?500 mg of vancomycin powder was spread superficially over??both??wounds. ??DuraSeal was placed over the laminectomy gap in orderto prevent further migration of the paddle. ??Exparel was injected in the paraspinal muscles??in order to??reduce postoperative pain. The battery was??finally tightened and??inserted??in the right lower lumbar region??and sutured to it??with a Prolene 2.0.??Then, the right lower lumbar region woundwas closed by layers of Vicryl #1 for the deep subcutaneous tissue, Vicryl 2-0 for the proximal subcutaneous tissue??and??Monocryl 3-0 for the skin. ??The midline incision was closed with Vicryl #1 for the thoracic fascia, Vicryl 2-0 for subcutaneous tissue??and??Monocryl 3-0 for the skin. ??The skin was dressed with a??Prineo??dressing.??The system was tested and connection with the battery was established. documented in this encounter Plan of Treatment Not on file documented as of this encounter Procedures Procedure Name Priority Date/Time Associated Diagnosis Comments CARDIAC RHYTHM STRIP ORDER 09/22/2021 11:41 PM CDT GLUCOSE - POINT OF CARE Routine 09/16/2021 10:03 AM CDT FL GIANFRANCO SURGERY Routine 09/16/2021 9:30 AM CDT Pain GLUCOSE - POINT OF CARE Routine 09/16/2021 7:12 AM CDT LAMINECTOMY THORACIC 09/16/2021 6:40 AM CDT Diagnosis unknown Special Needs ## LATEX ALLERGY## NEEDS C-ARM, SPECIALTY ORACLE APEX DEVELOPER NOTIFIED PER OFFICE(JEY) WITH A CONFIRMATION # [id number]- 08/16 TM, SAVAGE REP (RODRÍGUEZ [phone]) NOTIFIED PER OFFICE(JEY) 08/16 TM / SURGEON WANTS PATIENT IN PRONE POSITION FOR PROCEDURECase confi rmed with Rodríguez 09-14-2021-MAB documented in this encounter Results * CARDIAC RHYTHM STRIP ORDER (09/22/2021 11:41 PM CDT) Narrative 09/22/2021 11:41 PM CDT Ordered by an unspecified provider. Scanned Document CARDIAC SERVICES ORD ERABLES * (ABNORMAL) GLUCOSE - POINT OF CARE (09/16/2021 10:03 AM CDT) Glucose WB/POC 152(H) 70 - 106 mg/dL 09/16/2021 1:04 PM CDT [facility] Specimen Type Cap Fingerstick 2021 1:04 PM CDT [facility] Blood BLOOD SPECIMEN / Unknown 09/16/2021 10:03 AM CDT 09/16/2021 1:04 PM CDT Maxi Gregg MD LAB - POINT OF C ARE ORDERABLES Performing Organization Address City/[facility]/ZIP Co de Phone Number [facility] [address] [place] [address] * FL GIANFRANCO SURGERY (09/16/2021 9:30 AM CDT) Narrative [facility] - 09/16/2021 2:19 PM CDT For details of this study, please see the providers note. Maxi Gregg MD FLUOROSCOPY ORDE RABLES [facility] [address] [place] [address] * (ABNORMAL) GLUCOSE - POINT OF CARE (09/16/2021 7:12 AM CDT) Glucose WB/POC 165(H) 70 - 106 mg/dL 09/17/2021 5:24 AM CDT [facility] Specimen Type Venous 09/17/2021 5:24 AM CDT [facility] Blood BLOOD SPECIMEN / Unknown 09/16/2021 7:12 AM CDT 09/17/2021 5:24 AM CDT Maxi Gregg MD LAB - POINT OF C ARE ORDERABLES [facility] [address] [place] [id number] documented in this encounter Visit Diagnoses Diagnosis Pain Generalized pain Diagnosis unknown Other unknown and unspecified cause of morbidity or mortality documented in this encounter Administered Medications Inactive Administered Medications - up to 3 most recent administrations Medication Order MAR Action Action Date Dose Rate Site 0.9% NaCl irrigation (SO) solution PRN, Starting on Valeri 09/16/21 at 0933, Until Valeri 09/16/21 at 0955, Intra-op $ Given 09/16/2021 9:34 AM CDT 100 mL Operative Site $ Given 09/16/2021 9:33 AM CDT 450 mL Op erative Site acetaminophen (Tylenol) tablet 1,000 mg 1,000 mg, Oral, ONCE, 1 dose, On Valeri 09/16/21 at 0700, Patient preference for lesser PRN pain meds may be honored when the patient requests a less strong medication, a lower dose, or a less intrusive route of administration when the lesser drug, dose and route have been ordered for the patient. This patient request must be documented in the MAR., Pre-op $ Given 09/16/2021 7:20 AM CDT 1,000 mg bupivacaine liposome (Exparel) 1.3 % injection PRN, Starting on Valeri 09/16/21 at 0853, Until Valeri 09/16/21 at 0955, Intra-op $ Given 09/16/2021 8:53 AM CDT 20 mL Operative Site fentaNYL (PF) (Sublimaze) injection 50 mcg 50 mcg, Intravenous, EVERY 3 MIN PRN, Mild Pain, 4 doses, Starting on Valeri 09/16/21 at 0957, Until Valeri 09/16/21 at 1622, Maximum total of 4 doses. If patient [...] must be documented in the MAR., PACU fentaNYL (PF) (Sublimaze) injection 50 mcg 50 mcg, Intravenous, EVERY 3 MIN PRN, Moderate Pain, 4 doses, Starting on Valeri 09/16/21 at 0957, Until Valeri 09/16/21 at 1622, Maximum total of 4 doses. If patient [...] documented in the MAR., PACU $ Given 09/16/2021 10:15 AM CDT 50 mcg $ Given 09/16/2021 10:05 AM CDT 50 mcg HYDROcodone-acetaminophen (Ava) 7.5-325 MG tablet 1 tablet 1 tablet, Oral, EVERY 4 HOURS PRN, Moderate Pain, Starting on Valeri 09/16/21 at 1111, Until Valeri 09/16/21 at 1622, Patient preference for lesser PRN pain meds may be honored when the patient requests a less strong medication, a lower dose, or a less intrusive route of administration when the lesser drug, dose and route have been ordered for the patient. This patient request must be documented in the MAR., Post-op $ Given 09/16/2021 11:11 AM CDT 1 tablet HYDROmorphone (Dilaudid) injection 0.5 mg 0.5 mg, Intravenous, EVERY 5 MIN PRN, Severe Pain, 4 doses, Starting on Valeri 09/16/21 at 0957, Until Valeri 09/16/21 at 1622, Maximum total of 4 doses If patient [...] must be documented in the MAR., PACU lactated ringers infusion at 20 mL/hr, Intravenous, PRE-OP CONTINUOUS, Starting on Valeri 09/16/21 at 0700, Until Valeri 09/16/21 at 1622, Pre-op $ New Bag/Syringe 09/16/2021 9:20 AM CDT Restarted 09/16/2021 7:36 AM CDT $ New Bag/Syringe 09/16/2021 7:21 AM CDT 20 mL /hr lactated ringers infusion at 125 mL/hr, Intravenous, CONTINUOUS, Starting on Valeri 09/16/21 at 1000, Until Valeri 09/16/21 at 1622, PACU lidocaine 1% (Xylocaine-MPF) - EPINEPHrine 1:100,000 injection PRN, Starting on Valeri 09/16/21 at 0932, Until Valeri 09/16/21 at 0955, Intra-op $ Given 09/16/2021 9:32 AM CDT 6 mL Operative Site lidocaine PF (Xylocaine MPF) 1 % injection 0.2 mL 0.2 mL, Infiltration, PRE-OP MULTIPLE, 3 doses, Starting on Valeri 09/16/21 at 0646, Until Valeri 09/16/21 at 1622, May be used (0.2 ml locally to anesthetize prior to insertion)., Pre-op morphine injection 3 mg 3 mg, Intravenous, POST-OP ONCE, 1 dose, On Valeri 09/16/21 at 1400, Patient preference for lesser PRN pain meds may be honored when the patient requests a less strong medication, a lower dose, or a less intrusive route of administration when the lesser drug, dose and route have been ordered for the patient. This patient request must be documented in the MAR., Post-op $ Given 09/16/2021 2:03 PM CDT 3 mg naloxone (Narcan) injection 0.04 mg 0.04 mg, Intravenous, POST-OP MULTIPLE, Starting on Valeri 09/16/21 at 0957, Until Valeri 09/16/21 at 1622, Notify physician immediately, and mix 0.4 mg Naloxone in 9 mL Normal Saline for slow IV push. Administer dilute Naloxone solution IV very slowly (1 mL over 30 seconds) while observing the patient response and titrating to effect. If no response, call Rapid Response, continue IV Naloxone at the same rate up to a total of 0.8 mg of diluted Naloxone., PACU ondansetron (Zofran) injection 4 mg 4 mg, Intravenous, ONCE PRN, Nausea/Vomiting, 1 dose, Starting on Valeri 09/16/21 at 0957, Until Valeri 09/16/21 at 1622, First choice, PACU vancomycin (Vancocin) injection PRN, Starting on Valeri 09/16/21 at 0852, Until Valeri 09/16/21 at 0955, Intra-op $ Given 09/16/2021 8:52 AM CDT 1,000 mg Other see comments documented in this encounter Active and Recently Administered Medications Times are shown in CDT. Scheduled Medication Order 09/14/2021 09/15/2021 09/16/2021 acetaminophen (Tylenol) tablet 1,000 mg (COMPLETED) 1,000 mg, Oral, ONCE, 1 dose, On Valeri 09/16/21 at 0700, Patient preference for lesser PRN pain meds may be honored when the patient requests a less strong medication, a lower dose, or a less intrusive route of administration when the lesser drug, dose and route have been ordered for the patient. This patient request must be documented in the MAR., Pre-op 0720 ($ Given - Prov ider: Yeni Orellana RN) lidocaine PF (Xylocaine MPF) 1 % injection 0.2 mL 0.2 mL, Infiltration, PRE-OP MULTIPLE, 3 doses, Starting on Valeri 09/16/21 at 0646, Until Valeri 09/16/21 at 1622, May be used (0.2 ml locally to anesthetize prior to insertion)., Pre-op magnesium sulfate 3 g in 50 mL bolus 3 g, at 150 mL/hr, Administer over 20 Minutes, ONCE, 1 dose, On Valeri 09/16/21 at 0630, MAXIMUM rate 2g/10min 0630 (Due) morphine injection 3 mg (COMPLETED) 3 mg, Intravenous, POST-OP ONCE, 1 dose, On Valeri 09/16/21 at 1400, Patient preference for lesser PRN pain meds may be honored when the patient requests a less strong medication, a lower dose, or a less intrusive route of administration when the lesser drug, dose and route have been ordered for the patient. This patient request must be documented in the MAR., Post-op 1403 ($ Given - Prov ider: Indigo Church RN) naloxone (Narcan) injection 0.04 mg 0.04 mg, Intravenous, POST-OP MULTIPLE, Starting on Valeri 09/16/21 at 0957, Until Valeri 09/16/21 at 1622, Notify physician immediately, and mix 0.4 mg Naloxone in 9 mL Normal Saline for slow IV push. Administer dilute Naloxone solution IV very slowly (1 mL over 30 seconds) while observing the patient response and titrating to effect. If no response, call Rapid Response, continue IV Naloxone at the same rate up to a total of 0.8 mg of diluted Naloxone., PACU vancomycin (Vancocin) 1,000 mg in 0.9% NaCl IV 250 mL IVPB (COMPLETED) 1,000 mg, at 250 mL/hr, Intravenous, PRE-OP ONCE, 1 dose, On Valeri 09/16/21 at 0630, Indication for anti-infective therapy: Surgical prophylaxis 0753 ($ New Bag/Syri nge - Provider: KALIE Mckenzie) Continuous Medication Order 09/14/2021 09/15/2021 09/16/2021 lactated ringers infusion at 20 mL/hr, Intravenous, PRE-OP CONTINUOUS, Starting on Valeri 09/16/21 at 0700, Until Valeri 09/16/21 at 1622, Pre-op 0721 ($ New Bag/Syri nge - Provider: Yeni Orellana RN)0735 (Paused - Provider: KALIE Mckenzie - Comment: Switch to gravity)0736 (Restarted - Provider: KALIE Mckenzie)0920 ($ New Bag/Syringe - Provider: Mary J Gentry, ILLUSIONIST-FABRIC WORKER FITTER) lactated ringers infusion at 125 mL/hr, Intravenous, CONTINUOUS, Starting on Valeri 09/16/21 at 1000, Until Valeri 09/16/21 at 1622, PACU 1000 (Due) PRN Medication Order 09/14/2021 09/15/2021 09/16/2021 0.9% NaCl irrigation (SO) solution (CANCELED) PRN, Starting on Valeri 09/16/21 at 0933, Until Valeri 09/16/21 at 0955, Intra-op 0933 ($ Given - Prov ider: Maxi Gregg MD - Comment: irrisept)0934 ($ Given - Provider: Maxi Gregg MD) bupivacaine liposome (Exparel) 1.3 % injection (CANCELED) PRN, Starting on Valeri 09/16/21 at 0853, Until Valeri 09/16/21 at 0955, Intra-op 0853 ($ Given - Prov ider: Maxi Gregg MD) fentaNYL (PF) (Sublimaze) injection 50 mcg 50 mcg, Intravenous, EVERY 3 MIN PRN, Mild Pain, 4 doses, Starting on Valeri 09/16/21 at 0957, Until Valeri 09/16/21 at 1622, Maximum total of 4 doses. If patient [...] must be documented in the MAR., PACU fentaNYL (PF) (Sublimaze) injection 50 mcg 50 mcg, Intravenous, EVERY 3 MIN PRN, Moderate Pain, 4 doses, Starting on Valeri 09/16/21 at 0957, Until Valeri 09/16/21 at 1622, Maximum total of 4 doses. If patient [...] must be documented in the MAR., PACU 1005 ($ Given - Prov ider: Brian Mcintosh RN)1015 ($ Given - Provider: Brian Mcintosh RN) HYDROcodone-acetaminophen (Ava) 7.5-325 MG tablet 1 tablet 1 tablet, Oral, EVERY 4 HOURS PRN, Moderate Pain, Starting on Valeri 09/16/21 at 1111, Until Valeri 09/16/21 at 1622, Patient preference for lesser PRN pain meds may be honored when the patient requests a less strong medication, a lower dose, or a less intrusive route of administration when the lesser drug, dose and route have been ordered for the patient. This patient request must be documented in the MAR., Post-op 1111 ($ Given - Prov ider: Indigo Church RN) HYDROmorphone (Dilaudid) injection 0.5 mg 0.5 mg, Intravenous, EVERY 5 MIN PRN, Severe Pain, 4 doses, Starting on Valeri 09/16/21 at 0957, Until Valeri 09/16/21 at 1622, Maximum total of 4 doses If patient [...] must be documented in the MAR., PACU lidocaine 1% (Xylocaine-MPF) - EPINEPHrine 1:100,000 injection (CANCELED) PRN, Starting on Valeri 09/16/21 at 0932, Until Valeri 09/16/21 at 0955, Intra-op 0932 ($ Given - Prov ider: Maxi Gregg MD) ondansetron (Zofran) injection 4 mg 4 mg, Intravenous, ONCE PRN, Nausea/Vomiting, 1 dose, Starting on Valeri 09/16/21 at 0957, Until Valeri 09/16/21 at 1622, First choice, PACU vancomycin (Vancocin) injection (CANCELED) PRN, Starting on Valeri 09/16/21 at 0852, Until Valeri 09/16/21 at 0955, Intra-op 0852 ($ Given - Prov ider: Maxi Gregg MD - Comment: sprinkled in op site) documented in this encounter Care Teams Phototypesetting Equipment Monitor Relationship Specialty Start Date End Date Justen Gale MD PCP - General 07/05/21 documented as of this encounter
--- OUTSIDE RECORDS SUMMARY | 2024-04-26 02:34 | XMS_ITS | Encounter Summary ---
Author Organization [facility] Address [address] [place] [address] Care Team Providers Care Pressure Sealer And Tester Name Role Phone Antoinette Zhu MD Primary Care Provider Encounter Details Date Type Department Care Team (Latest Contact Info) Description 04/20/2017 Emergency Department Historic [facility] EMERGENCY DEPARTMENT [address] [place] [id number] Eddie Khalil MD [address] [place] [address] Discharge Disposition: Home or Self Care Social [...] Sign Reading Time Taken Comments Blood Pressure 108/50 04/20/2017 6:35 AM INFORMATION OFFICER Pulse 87 04/20/2017 6:36 AM INFORMATION OFFICER Temperature 36.4 ??C (97.5 ??F) 04/20/2017 1:01 AM CS T Respiratory Rate 18 04/20/2017 1:01 AM INFORMATION OFFICER Oxygen Saturation 100% 04/20/2017 6:36 AM INFORMATION OFFICER Inhaled Oxygen Concentration - - Weight 127 kg (280 lb) 04/20/2017 1:01 AM INFORMATION OFFICER Height 154.9 cm (5' 1 ) 04/20/2017 1:01 AM INFORMATION OFFICER Body Mass Index 52.91 04/20/2017 1:01 AM INFORMATION OFFICER documented in this encounter ED Notes * Eddie Khalil MD - 04/20/2017 4:21 AM CST ED Provider Notes Signed by Eddie Rizvi MD on 04/20/2017 7:03 AM Author: Eddie Rizvi MD Service: Emergency Author Type: Physician Date of Service: 04/20/2017 4:21 AM Filed: 04/20/2017 7:03 AM Note Type: ED Provider Notes Status: Signed Design Painter: Eddie Rizvi MD (Physician) Cosign Notation: I have performed an independent history and physical examination and discussed the patient's management with the resident. I agree with the findings, assessment and plan of care as documented by the resident except as noted. Pt periumbilical pain with nausea and emesis., Minimal relief with home medications. Patient had a stent placed 2 weeks ago by urology in [place]. Has a pain physician appointment in May Vitals: 04/20/17 0101 BP: 149/90 BP Location: Right arm Patient Position: Sitting Pulse: 78 Resp: 18 Temp: 97.5 ??F (36.4 ??C) TempSrc: Oral SpO2: 100% Weight: 280 lb (127 kg) Height: 5' 1 (1.549 m) Morbidly obese, no acute distress, not diaphoretic Abdomen morbidly obese, mild tenderness in the periumbilical area Dx: Abdominal pain DDx; renal calculi, chronic pain syndrome, other Plan labs, UA, CT scan, pain medicine one time dose. Discussed with patient that I will on unable to give her opiates on discharge ED course:? Labs Reviewed COMPREHENSIVE METABOLIC PANEL - Abnormal; Notable for the following: Result Value Glucose 152 (*) Calcium 10.3 (*) Total Protein 9.3 (*) A/G Ratio 0.7 (*) All other components within normal limits URINALYSIS COMPLETE - Abnormal; Notable for the following: Blood UA Small (*) Leukocyte Esterase UA Moderate (*) WBC UA 13 (*) Mucous UA Moderate (*) All other components within normal limits CBC WITH DIFFERENTIAL - Abnormal; Notable for the following: Eosinophil Abs 0.39 (*) All other components within normal limits LIPASE - Normal CBC W/ DIFFERENTIAL Narrative: The following orders were created for panel order CBC w Differential. Procedure Abnormality Status --------- ------ CBC WITH DIFFERENTIAL[[id number]] Abnormal Final result Please view results for these tests on the individual orders. I was present for the pinzon portion(s) of the following procedures: N/A Time spent providing critical care services to the patient (excluding time spent by the resident and time spent performing separately billable procedures): NONE minutes. Eddie Rizvi MD 04/20/17 0703 RMATION OFFICER * Kelli Almendarez MD - 04/20/2017 4:14 AM CST ED Provider Notes Signed by Kelli Almendarez MD on 04/20/2017 6:31 AM Author: Kelli Almendarez MD Service: Emergency Author Type: Resident Date of Service: 04/20/2017 4:14 AM Filed: 04/20/2017 6:31 AM Note Type: ED Provider Notes Status: Signed Design Painter: Kelli Almendarez MD (Resident) Cosigner: Eddie Rizvi MD at 04/20/2017 7:03 AM History Chief Complaint Patient presents with ??? Abdominal Pain Renal stone scoped and stented earlier this month, continuing abd pain since, nausea and vomiting, diffuse lower abd pain, 10lb weight loss in 2 weeks. Hx breast ca cleared in 2015 HPI History obtained from: pt Tenant Relations Coordinator used: no 61 y.o. female with hx as below including DM, nephrolithiasis s/p left ureteral stent 03/2017, presents to ED for abdominal pain x months, worsening. Pt reports that her pain has been persistent since ureteral stent placement for nephrolithiasis this month and OSH in [place]. Has f/u scheduled w/ pain management but has not seen them yet. Ran out of hydrocodone today. Also with nausea and vomiting, 2 episodes NBNB emesis today. Abdominal pain is band like across umbilicus, constant, feels like ache , no known aggravating or alleviating factors. Past Medical History: Diagnosis Date ??? Breast CA ??? Depression treated with pristiq for 3-4 months now feels better off meds x 1 month ??? Diabetes mellitus ??? DVT (deep venous thrombosis) ??? Hypertension ??? Obstructive sleep apnea CPAP machine x 5-6 years ??? PE (pulmonary thromboembolism) Past Surgical History: Procedure Laterality Date ??? HX HERNIA REPAIR ??? HX KNEE ARTHROSCOPY bilateral ??? HX MASTECTOMY ??? MS DELIVERY ONLY ??? MS LAP,CHOLECYSTECTOMY Family History Problem Relation Age of Onset ??? Cancer Father Sister ??? Diabetes Mother ??? Heart Disease Mother Brother ??? Hemochromatosis Father Social History Substance Use Topics ??? Smoking status: Former Smoker Packs/day: 0.50 Years: 2.00 Quit date: 12/05/1977 ??? Smokeless tobacco: Never Used ??? Alcohol use No Comment: history of occasional drink Review of Systems Constitutional: Negative for chills and fever. HENT: Negative for sore throat. Eyes: Negative for visual disturbance. Respiratory: Negative for shortness of breath. Cardiovascular: Negative for chest pain. Gastrointestinal: Positive for abdominal pain, nausea and vomiting. Negative for constipation and diarrhea. Endocrine: Negative for polyuria. Genitourinary: Negative for dysuria. Musculoskeletal: Negative for back pain. Skin: Negative for rash. Neurological: Negative for headaches. Psychiatric/Behavioral: Negative for suicidal ideas. Physical Exam BP 114/65 Pulse 82 Temp 97.5 ??F (36.4 ??C) (Oral) Resp 18 Ht 5' 1 (1.549 m) Wt 280 lb (127 kg) SpO2 100% BMI 52.91 kg/m2 Physical Exam Constitutional: She is oriented to person, place, and time. She appears well- developed and well-nourished. No distress. HENT: Mouth/Throat: Oropharynx is clear and moist. Eyes: Pupils are equal, round, and reactive to light. Neck: Normal range of motion. Neck supple. No thyromegaly present. Cardiovascular: Normal rate, regular rhythm, normal heart sounds and intact distal pulses. Exam reveals no gallop and no friction rub. No murmur heard. Pulmonary/Chest: Effort normal and breath sounds normal. No respiratory distress. She has no wheezes. She has no rales. She exhibits no tenderness. Abdominal: Soft. Bowel sounds are normal. She exhibits no distension and no mass. There is tenderness (ttp periumbilical ). There is no rebound and no guarding. obese Musculoskeletal: She exhibits no edema. Neurological: She is alert and oriented to person, place, and time. Skin: Skin is warm and dry. No rash noted. She is not diaphoretic. Psychiatric: She has a normal mood and affect. Labs Reviewed COMPREHENSIVE METABOLIC PANEL - Abnormal; Notable for the following: Result Value Glucose 152 (*) Calcium 10.3 (*) Total Protein 9.3 (*) A/G Ratio 0.7 (*) All other components within normal limits URINALYSIS COMPLETE - Abnormal; Notable for the following: Blood UA Small (*) Leukocyte Esterase UA Moderate (*) WBC UA 13 (*) Mucous UA Moderate (*) All other components within normal limits CBC WITH DIFFERENTIAL - Abnormal; Notable for the following: Eosinophil Abs 0.39 (*) All other components within normal limits LIPASE - Normal CBC W/ DIFFERENTIAL Narrative: The following orders were created for panel order CBC w Differential. Procedure Abnormality Status --------- ------ CBC WITH DIFFERENTIAL[[id number]] Abnormal Final result Please view results for these tests on the individual orders. CT Abdomen And Pelvis W IV Contrast (Results Pending) Medications Given: Medications ondansetron (ZOFRAN) injection 4 mg (not administered) NaCl bolus 0.9 % bolus 1,000 mL (0 mLs Intravenous Stopped 04/20/17 8174) morphine (PF) injection 4 mg (4 mg Intravenous Given 04/20/17 0435) ondansetron (ZOFRAN) injection 4 mg (4 mg Intravenous Given 04/20/17 0435) iohexol (OMNIPAQUE) 350 MG/ML injection 150 mL (150 mLs Intravenous Given 04/20/17 7413) MDM Problem List: abdominal pain DDx: chronic abdominal pain vs nephrolithiasis vs pyelonephritis vs GERD vs pancreatitis vs hernia vs other Plan: labs, ct abd/pelvis w/ iv contrast, pain control ED Course -Patient seen and evaluated, available studies reviewed -Prior records reviewed: yes -Consults obtained: none -pain improved after morphine, VSS -ct abd/pelvis w/o acute process -pt has appt scheduled w/ pain management. Discussed return precautions. -I have reviewed the diagnostic findings with the patient and they have had an opportunity to ask me any questions they have about care, diagnosis and discharge plan. The patient is comfortable with the discharge plan. They will follow up as directed and will return to the ER if their condition worsens or if they develop other urgent concerns. Procedures ED Final Diagnosis and Discharge information 1. Generalized abdominal pain 2. Nausea and vomiting, intractability of vomiting not specified, unspecified vomiting type Scripts ED Discharge Orders None Follow-up Follow-up Information Follow up with Antoinette Zhu. Schedule an appointment as soon as possible for a visit in 3 days. Specialty: Family Medicine Contact information: [address] [address] Schedule an appointment as soon as possible for a visit with [facility] Department of General Surgery. Specialty: General Surgery Why: As needed, If symptoms worsen Contact information: [address] [address] Disposition Discharged Kelli Almendarez MD Resident 04/20/17 0632 RMATION OFFICER documented in this encounter Plan of Treatment Not on file documented as of this encounter Procedures Procedure Name Priority Date/Time Associated Diagnosis Comments CT ABDOMEN PELVIS W CONTRAST STAT 04/20/2017 5:10 AM INFORMATION OFFICER CBC W AUTO DIFFERENTIAL STAT 04/20/2017 4:04 AM INFORMATION OFFICER COMPREHENSIVE METABOLIC PANEL STAT 04/20/2017 4:04 AM INFORMATION OFFICER LIPASE BLOOD STAT 04/20/2017 4:04 AM INFORMATION OFFICER CBC W AUTO DIFFERENTIAL STAT 04/20/2017 4:04 AM INFORMATION OFFICER URINALYSIS W/MICROSCOPIC NO CULTURE STAT 04/20/2017 1:25 AM INFORMATION OFFICER documented in this encounter Results * CT ABDOMEN PELVIS W CONTRAST (04/20/2017 5:10 AM INFORMATION OFFICER) Anatomical Region Laterality Modality Abdomen, Pelvis Other Impressions 04/20/2017 11:00 AM INFORMATION OFFICER IMPRESSION: 1. No acute process identified in the abdomen or pelvis. Dictated by Felicitas Hickey MD (residential construction instructor). Dr. Boaz Perez M.D. have personally reviewed and interpreted this examination/study. This report was electronically signed by Boaz DIAZ M.D. ??on 04/20/2017 11:00 AM . Narrative 04/20/2017 11:00 AM INFORMATION OFFICER EXAMINATION: Computed tomography (CT) of the abdomen and pelvis with contrast HISTORY: Abdominal pain TECHNIQUE: CT of the abdomen and pelvis was performed following the uneventful administration of 150 mL of Omnipaque 350 intravenous contrast according to standard protocol. COMPARISON: No prior study is available for comparison. FINDINGS: The aorta is normal in course and caliber. The visible lung bases are clear. The heart size is normal without pericardial effusion. The liver enhances homogenously. The gallbladder is surgically absent. The intrahepatic and extrahepatic bile ducts are nondilated. The spleen enhances homogenously without focal lesion. The pancreas and adrenal glands are normal. The kidneys enhance symmetrically. There is a nonobstructing 2 mm right upper pole nephrolith. The distal esophagus and stomach appear normal. There is colonic diverticulosis without evidence of diverticulitis. Otherwise the small bowel and large bowel are normal in caliber without evidence of wall thickening or obstruction. The appendix appears normal without appendicolith or surrounding inflammatory changes. No free air or free fluid is identified within the abdomen. There is no abdominal lymphadenopathy. The urinary bladder is distended with fluid and appears normal. The uterus is present. No free fluid is seen within the pelvis. There is no pelvic lymphadenopathy. Hernia mesh is present along the lower anterior abdominal wall. Bone windows demonstrate no suspicious lytic or blastic lesions. The visible osseous structures are intact. Procedure Note Naya Diaz MD - 07/21/2017 EXAMINATION: Computed tomography (CT) of the abdomen and pelvis withcontrast HISTORY: Abdominal pain TECHNIQUE: CT of the abdomen and pelvis was performed following theuneventful administration of 150 mL of Omnipaque 350 intravenous contrastaccording to standard protocol. COMPARISON: No prior study is available for comparison. FINDINGS: The aorta is normal in course and caliber. The visible lung bases are clear. The heart size is normal withoutpericardial effusion. The liver enhances homogenously. The gallbladder is surgically absent. Theintrahepatic and extrahepatic bile ducts are nondilated. The spleenenhances homogenously without focal lesion. The pancreas and adrenalglands are normal. The kidneys enhance symmetrically. There is a nonobstructing 2 mm right upper polenephrolith. The distal esophagus and stomach appear normal. There is colonicdiverticulosis without evidence of diverticulitis. Otherwise the smallbowel and large bowel are normal in caliber without evidence of wallthickening or obstruction. The appendix appears normal without appendicolith or surrounding inflammatory changes. No freeair or free fluid is identified within the abdomen. There is no abdominallymphadenopathy. The urinary bladder is distended with fluid and appears normal. The uterusis present. No free fluid is seen within the pelvis. There is no pelviclymphadenopathy. Hernia mesh is present along the lower anterior abdominalwall. Bone windows demonstrate no suspicious lytic or blastic lesions. Thevisible osseous structures are intact. IMPRESSION IMPRESSION: 1. No acute process identified in the abdomen or pelvis. Dictated by Felicitas Hickey MD (residential construction instructor). I, Dr. Boaz DIAZ M.D. have personally reviewed and interpreted thisexamination/study. This report was electronically signed by Boaz DIAZ M.D. on04/20/2017 11:00 AM . Eddie Khalil MD CT ORDERABLES * (ABNORMAL) CBC W AUTO DIFFERENTIAL (04/20/2017 4:04 AM INFORMATION OFFICER) WBC 9.9 3.5 - 10.5 10? 3 /uL [facility] RBC 4.61 3.90 - 5.00 10? 6 /uL [facility] Hemoglobin 13.1 12.0 - 15.5 g/dL [facility] Hematocrit 40.4 35.0 - 45.0 % [facility] MCV 87.6 81.0 - 97.0 fL [facility] MCH 28.4 28.0 - 34.0 pg [facility] MCHC 32.4 32.0 - 36.0 g/dL [facility] Platelet Count 313 150 - 400 10? 3 /uL [facility] RDW-SD 45.9 36.0 - 50.0 fL [facility] RDW-CV 14.3 11.2 - 14.8 % [facility] MPV 9.8 9.3 - 12.8 fL [facility] nRBC Absolute 0.00 0 10? 3 /uL [facility] nRBC Auto 0.0 0 /100 WBC [facility] Neutrophils % 64.1 35.0 - 70.0 % [facility] Lymphocytes % 25.6 19.7 - 55.1 % [facility] Monocytes % 6.2 3.0 - 15.0 % [facility] Eosinophils % 3.9 0.0 - 6.0 % [facility] Basophil % 0.2 0.0 - 1.5 % [facility] Neutrophils Absolute 6.4 1.6 - 7.0 10? 3 /uL [facility] Lymphocyte Absolute 2.5 0.8 - 2.9 10? 3 /uL [facility] Monocytes Absolute 0.62 0.14 - 0.66 10? 3 /uL [facility] Eosinophils Absolute 0.39(H) 0.00 - 0.22 10? 3 /uL [facility] Basophils Absolute 0.02 0.00 - 0.06 10? 3 /uL [facility] Immature Granulocytes % 0.2 0.0 - 1.0 % [facility] Blood specimen (specimen) BLOOD SPECIMEN / Unknown 04/20/2017 4:04 AM INFORMATION OFFICER 04/20/2017 4:08 AM INFORMATION OFFICER Epi Solitario MD LAB - HEMATOLOGY ORD ERABLES [address] [phone] * (ABNORMAL) COMPREHENSIVE METABOLIC PANEL (04/20/2017 4:04 AM INFORMATION OFFICER) BUN 16 7 - 26 mg/dL [facility] Creatinine 0.7 0.6 - 1.2 mg/dL [facility] Sodium 138 136 - 145 mmol/L [facility] Potassium 4.1 3.5 - 4.5 mmol/L [facility] Chloride 102 98 - 107 mmol/L [facility] CO2 27 22 - 29 mmol/L [facility] Glucose 152(H) 70 - 115 mg/dL [facility] Calcium 10.3(H) 8.4 - 10.2 mg/dL [facility] Protein Total 9.3(H) 6.0 - 8.3 g/dL [facility] Albumin 3.8 3.4 - 5.0 g/dL [facility] Bilirubin Total 0.4 0.2 - 1.2 mg/dL [facility] Alkaline Phosphatase 77 40 - 150 Units/L [facility] ALT 17 0 - 55 Units/L [facility] AST 17 5 - 34 Units/L [facility] Anion Gap 13 8 - 18 [facility] BUN/Creatinine Ratio 23 7 - 23 [facility] Osmolality Calculated 290 270 - 300 mOsm/kg [facility] Albumin/Globulin Ratio 0.7(L) 1.1 - 2.3 [facility] eGFR >60 >60 mL/min/1.7 3 m2 [facility] Blood specimen (specimen) BLOOD SPECIMEN / Unknown 04/20/2017 4:04 AM INFORMATION OFFICER 04/20/2017 4:08 AM INFORMATION OFFICER Epi Solitario MD LAB - CHEMISTRY ANGEL SPEARS [address] [phone] * LIPASE BLOOD (04/20/2017 4:04 AM INFORMATION OFFICER) Lipase 34 8 - 78 Units/L [facility] Blood specimen (specimen) BLOOD SPECIMEN / Unknown 04/20/2017 4:04 AM INFORMATION OFFICER 04/20/2017 4:08 AM INFORMATION OFFICER Epi Solitario MD LAB - CHEMISTRY ANGEL SPEARS Performing Organization Address City/[facility]/ZIP Co de Phone Number [address] [phone] * CBC W AUTO DIFFERENTIAL (04/20/2017 4:04 AM INFORMATION OFFICER) Blood specimen (specimen) BLOOD SPECIMEN / Unknown 04/20/2017 4:04 AM INFORMATION OFFICER Narrative [facility] - 04/20/2017 4:13 AM INFORMATION OFFICER The following orders were created for panel order CBC w Differential. Procedure ? Abnormality ? Status ? --------- ? ------ ? CBC WITH DIFFERENTIAL[[id number]] ? Abnormal ?Final result ? Please view results for these tests on the individual orders. Epi Solitario MD LAB - HEMATOLOGY ORD ERABLES [facility] [address] [place] [address], [facility] * (ABNORMAL) URINALYSIS W/MICROSCOPIC NO CULTURE (04/20/2017 1:25 AM INFORMATION OFFICER) Color UA Yellow Straw, Yellow, Colorless, Light Yellow [facility] Clarity UA Clear Clear [facility] Specific [place] UA 1.020 1.001 - 1.030 [facility] pH UA 5.5 5.0 - 8.0 [facility] Protein UA Negative <=20 mg/dL [facility] Glucose UA Negative Negative mg/dL [facility] Ketone UA Negative Negative mg/dL [facility] Bilirubin UA Negative Negative mg/dL [facility] Blood UA Small(A) Negative [facility] Nitrite UA Negative Negative [facility] Leukocyte Esterase Moderate(A) Negative [facility] Urobilinogen UA <2.0 <2.0 mg/dL [facility] RBC UA 4 0 - 8 /HPF [facility] WBC UA 13(H) 0 - 2 /HPF [facility] Bacteria UA Rare Rare, Occasional, None /HPF [facility] Squamous Epithelial Cells UA 1 0 - 1 /HPF [facility] Mucus UA Moderate(A) None /LPF [facility] Urine specimen (specimen) 04/20/2017 1:25 AM INFORMATION OFFICER 04/20/2017 1:30 AM INFORMATION OFFICER Epi Solitario MD LAB - URINALYSIS ORD ERABLES Performing Organization Address City/State/[facility] Co de Phone Number [facility] [address] [place] [address] documented in this encounter Visit Diagnoses Diagnosis Generalized abdominal pain Abdominal pain, generalized Nausea with vomiting documented in this encounter Care Teams Pressure Sealer And Tester Relationship Specialty Start Date End Date Antoinette Zhu MD [address] [place] [address] [phone] PCP - General 10/21/11 07/04/21 documented as of this encounter
--- OUTSIDE RECORDS SUMMARY | 2024-04-26 02:34 | XMS_ITS | Encounter Summary ---
Author Organization [facility] Address [address] [place] [address] Care Team Providers Care First Aid Director Name Role Phone Justen Gale MD Primary Care Provider [phone] Reason for Visit * Auth/Cert Specialty Diagnoses / Procedures Referred By Elyssa t Referred To Contact Diagnoses Diagnosis unknown Diagnosis unknown [R69] Procedures LAMINECTOMY THORACIC Referral ID Status Reason Start Date Expiration Date Visits Re quested Visits Authorized [id number] 1 1 Encounter Details Date Type Department Care Team (Latest Contact Info) Description 09/16/2021 5:38 AM CDT - 09/16/2021 3:21 PM CDT Hospital Encounter [facility] [address] [place] [address] Maxi Gregg MD [address] [phone] Surgery General Discharge Disposition: Home or Self [...] Reading Time Taken Comments Blood Pressure 150/88 09/16/2021 1:07 PM CDT Pulse 84 09/16/2021 1:07 PM CDT Temperature 36.4 ??C (97.6 ??F) 09/16/2021 10:49 AM C DT Respiratory Rate 18 09/16/2021 1:07 PM CDT Oxygen Saturation 99% 09/16/2021 1:07 PM CDT Inhaled Oxygen Concentration - - [...] (one) tablet by mouth DAILY 04/20/2017 Lancets ([employer] DELICA PLUS 33G EXTRA FINE LANCET) USE FOUR TIMES DAILY 03/10/2021 [employer] ULTRA test strip 4 times daily 02/01/2021 [...] MD - 09/16/2021 8:17 AM CDT [facility] ?Operative Report ?? PATIENT NAME: MOHSEN SALAZAR ?MR#:??[id number] DATE OF :?1955?CSN:?[id number] ?? DATE OF ADMISSION: ??09/16/2021?ROOM#: ??[facility] ?INTRAOP DATE OF OPERATION: ??09/16/2021? PREOPERATIVE DIAGNOSIS: [...] ?? COMPLICATIONS: No intraoperative complications. ?? HARDWARE: [employer]Board DR ?? PROCEDURE: The patient under anesthesia [...] Needs ## LATEX ALLERGY## NEEDS C-ARM, SPECIALTY K[employer]IT GOODS W[employer]ER NOTIFIED PER OFFICE(JEY) WITH A CONFIRMATION # [id number]- 08/16 , SAVAGE REP (RODRÍGUEZ [phone]) NOTIFIED PER OFFICE(JEY) 08/16 TM / SURGEON WANTS PATIENT IN PRONE POSITION FOR PROCEDURECase confi rmed with Rodríguez [phone] documented in this encounter Results * CARDIAC RHYTHM STRIP ORDER (09/22/2021 11:41 PM CDT) Narrative 09/22/2021 11:41 PM CDT Ordered by an unspecified provider. Scanned Document CARDIAC SERVICES ORD ERABLES * (ABNORMAL) GLUCOSE - POINT OF CARE (09/16/2021 10:03 AM CDT) Glucose WB/POC 152(H) 70 - 106 mg/dL 09/16/2021 1:04 PM CDT [facility] Specimen Type Cap Fingerstick 2021 1:04 PM CDT [facility] Blood BLOOD SPECIMEN / Unknown 09/16/2021 10:03 AM CDT 09/16/2021 1:04 PM CDT Maxi Gregg MD LAB - POINT OF ARE ORDERABLES Performing Organization Address [facility] Co de Phone Number [facility] [address] [place] [phone] * [place] GIANFRANCO SURGERY (09/16/2021 9:30 AM CDT) Narrative [facility] - 09/16/2021 2:19 PM CDT For details of this study, please see the providers note. Maxi SPEARS Performing Organization Address [facility] Co de Phone Number [facility] [address] [place] [phone] * (ABNORMAL) GLUCOSE - POINT OF CARE (09/16/2021 7:12 AM CDT) Pathologist [facility] Glucose WB/POC 165(H) 70 - 106 mg/dL 09/17/2021 5:24 AM CDT [facility] Specimen Type Venous 09/17/2021 5:24 AM CDT [facility] Blood BLOOD SPECIMEN / Unknown 09/16/2021 7:12 AM CDT 09/17/2021 5:24 AM CDT Maxi Gregg MD LAB - POINT OF ARE ORDERABLES Performing Organization Address [facility] Co de Phone Number [facility] [address] [place] [phone] documented in this encounter Visit Diagnoses Diagnosis Pain Generalized pain documented in this encounter Administered Medications Inactive Administered Medications - up to 3 most recent administrations Medication Order MAR Action Action Date Dose Rate Site acetaminophen (Tylenol) tablet 1,000 mg 1,000 mg, Oral, ONCE, 1 dose, On Vaelri 09/16/21 at 0700, Patient preference for lesser PRN pain meds may be honored when the patient requests a less strong medication, a lower dose, or a less intrusive route of administration when the lesser drug, dose and route have been ordered for the patient. This patient request must be documented in the MAR., Pre-op $ Given 09/16/2021 7:20 AM CDT 1,000 mg fentaNYL (PF) (Sublimaze) [...] 09/16/2021 10:05 AM CDT 50 mcg HYDROcodone-acetaminophen ([place]) 7.5-325 MG tablet 1 tablet 1 tablet, [...] New Bag/Syringe 09/16/2021 7:21 AM CDT 20 mL/ hr lactated ringers infusion at 125 mL/hr, Intravenous, CONTINUOUS, Starting on Valeri 09/16/21 at 1000, Until Valeri 09/16/21 at 1622, PACU lidocaine PF (Xylocaine MPF) 1 % [...] Valeri 09/16/21 at 1622, First choice, PACU documented in this encounter Active and Recently [...] 1403 ($ Given - Prov ider: [employer], NURIS) naloxone (Narcan) injection 0.04 mg 0.04 mg, [...] Mckenzie)0920 ($ New Bag/Syringe - Provider: Mary Rinaldi, [employer]MENT SERVICER) lactated ringers infusion at 125 mL/hr, Intravenous, [...] Given - Provider: Brian Mcintosh RN) HYDROcodone-acetaminophen ([place]) 7.5-325 MG tablet 1 tablet 1 tablet, [...] site) documented in this encounter Care Teams First Aid Director Relationship Specialty Start Date End Date Justen Gale MD PCP - General 07/05/21 documented as of this encounter
--- OUTSIDE RECORDS SUMMARY | 2024-04-26 02:34 | XMS_ITS | Encounter Summary ---
Author Organization [facility] Address [address] [facility] [place] [address] Care Team Providers Care Player Services Representative Name Role Phone Justen Gale MD Primary Care Provider [phone] Reason for Visit * Reason Onset Date Comments Follow-up 09/10/2021 Encounter Details Date Type Department Care Team (Late st Contact Info) Description 09/10/2021 Telephone [facility] [address] [place] [phone] Sonali Day Follow-up Social History Tobacco Use Types Packs/Day [...] on file documented as of this encounter Miscellaneous Notes * Telephone Encounter - Sonali Day - 09/10/2021 10:48 AM CDT Left voice message that patient will need to come in for blood work before surgery. documented in this encounter Plan of Treatment Not on file documented as of this encounter Visit Diagnoses Not on filedocumented in this encounter Care Teams Player Services Representative Relationship Specialty Start Date End Date Justen Gale MD PCP - General 07/05/21 documented as of this encounter
--- OUTSIDE RECORDS SUMMARY | 2024-04-26 02:34 | XMS_ITS | Encounter Summary ---
Author Organization [facility] Address [address] [place] [address] Care Team Providers Care Railroad Firer Name Role Phone Justen Gale MD Primary Care Provider [phone] Reason for Visit * Reason Onset Date Comments Surgery Scheduling 08/11/2021 Encounter Details Date Type Department Care Team (Late st Contact Info) Description 08/11/2021 Telephone [facility] [address] [facility] [place] [phone] Sonali Day Surgery Scheduling Social History Tobacco Use Types Packs/Day [...] * Telephone Encounter - Sonali Day - 08/11/2021 11:33 AM CDT Contact patient to schedule upcoming surgery. Surgery date 09/16/2021 will need to arrive at 0530am [facility] same day surgery NPO (nothing to eat or drink) after midnight Hold Asprin and NSAIDs 7 days prior to surgery Blood work needs to be complete before surgery date Hold Xarltro 5 days prior to surgery For any questions please call Sonali at [phone] Patient verbalize understanding with no further questions. documented in this encounter Plan of Treatment Not on file documented as of this encounter Visit Diagnoses Not on filedocumented in this encounter Care Teams Railroad Firer Relationship Specialty Start Date End Date Justen Gale MD PCP - General 07/05/21 documented as of this encounter
--- OUTSIDE RECORDS SUMMARY | 2024-04-26 02:34 | XMS_ITS | Encounter Summary ---
Author Organization [facility] Address [address] [facility] [place] [address] Care Team Providers Care Substation Operator Automatic Name Role Phone Justen Gale MD Primary Care Provider [phone] Reason for Visit * Auth/Cert Specialty Diagnoses / Procedures Referred By Elyssa benavides Referred To Contact Diagnoses Diagnosis unknown Diagnosis unknown [R69] Procedures LAMINECTOMY THORACIC Referral ID Status Reason Start Date Expiration Date Visits Re quested Visits Authorized [id number] 1 1 Encounter Details Date Type Department Care Team (Late st Contact Info) Description 09/16/2021 7:36 AM CDT Anesthesia Event [facility] [address] [place] [address] Mariusz Drew MD [address] [facility] ANESTHESIA [place], [place] [id number] Dillon Zamora DO [address] [facility] [place] [address] Anesthesia Record Procedure Summary Procedure Name Responsible Anesthesiologist Anesthesia Start Time Anesthesia Stop Time THORACIC EIGHT- THORACIC NINE LAMINECTOMY FOR PLACEMENT OF A DORSAL COLUMN STIMULATION SYSTAM AND PLACEMENT OF THE BATTERY IN THE LOWER LUMBAR REGION (Right: Spine Thoracic) Mariusz Drew MD 09/16/21 0736 09/16/21 1003 Events Date Time Event Comment 09/16/2021 0736 An Start 0739 An Start Data 0741 PT Reassessment 0744 Induction 0745 An Intubation 0815 Timeout Anesthesia part icipated in timeout at the time documented in the record by nursing. 0956 Extubation 0957 an stop data 0957 Electnc Sig This record is electronically signed by the providers listed under staff. 0957 ANPTO2 1003 An Stop Meds Name Total midazolam 2 mg/2mL injection 2 mg fentaNYL 100 mcg/2mL injection 100 mcg lidocaine 2% injection (20 mg/ml) 100 mg propofol 200mg/20mL injection 200 mg propofol 200mg/20mL injection 1,486.95 m g succinylcholine (ANECTINE) 100 mg/5 mL i njection 100 mg phenylephrine 1000 mcg/10mL injection 10 0 mcg dexamethasone 4 mg/ml injection 8 mg ondansetron 4 mg/2mL injection 8 mg dexMEDETOmidine (PRECEDEX) 200 mcg/2ml i njection 40 mcg diphenhydrAMINE 50mg/ml injection 50 mg tranexamic acid 1000mg /10mL bolus 1,000 mg vancomycin (Vancocin) 1,000 mg in 0.9% N aCl IV 250 mL IVPB 1,000 mg ketamine 50 mg/ml injection 50 mg droperidol (Inapsine) injection 0.625 mg lactated ringers infusion 1,000 mL * Agents Name Insp. N2O Exp. Sevoflurane Exp. N2O O2 Air Insp. Sevoflurane N2O * Blood No blood administrations on file. Lines, Drains, and Airways Type Details Placement Removal Peripheral IV Date: 09/16/21; Time : 716; Orientation: Right; Placed By: Luis A; Tolerance: Well 09/16/21 0717 by Yeni Orellana RN 09/16/21 1520 by Indigo Church RN ETT Date: 09/16/21; Time : 744; Placed By: Mary Rinaldi APRN-TERRAZZO WORKER APPRENTICE; Vent: mask not attempted; Induction: Modified Rapid Sequence; Blade Type: Video; Blade Size: 3; Laryngoscopy View: Grade 1 (full cords); Intubation Adjuncts: Stylet, Video Laryngoscope, Cricoid Pressure; Tube: Endotracheal Tube; Placement: Oral; Tube Type: Cuffed-inflated; Tube Size(mm): 7 MM; Depth of Insertion: 21 CM; Measured From: teeth; Attempts: 1; Cuff Infated: Air; Cuff Vol(mL): 7 mL; Verified By: Direct visualization, Bilateral breath sounds, Chest Auscultation, CO2 Monitor 09/16/21 0745 by Mary Rinaldi APRN-CRNA 09/16/21 0956 by Mary Rinaldi APRN-CINTHYA Procedural Site (Incision) 09/16/21; 816; Medial; Back; 09/16/21; 212109/16/21 08 by Mery Britton RN 09/16/212121 by Generic, Auto Release documented in this [...] as of this encounter Progress Notes * Mariusz Drew MD - 09/16/2021 10:29 AM CDT ANESTHESIA POSTOP EVALUATION NOTE Procedure: THORACIC EIGHT- THORACIC NINE LAMINECTOMY FOR PLACEMENT OF A DORSAL COLUMN STIMULATION SYSTAM AND PLACEMENT OF THE BATTERY IN THE LOWER LUMBAR REGION (Right Spine Thoracic) Karly Marques is a 66 year old female Patient Vitals for the past 6 hrs: BP Temp Pulse Resp SpO2 Pain Rating Score #1 Pain Scale/Observation 09/16/21 0705 159/86 97.3 ??F (36.3 ??C) 86 18 100 % -- -- 09/16/21 0716 -- -- -- -- -- 3 N 09/16/21 0959 (!) 158/100 97 ??F (36.1 ??C) 83 18 99 % 0 N;B 09/16/21 1000 159/90 -- 83 27 98 % -- -- 09/16/21 1005 132/76 -- 83 31 99 % 6 N;B 09/16/21 1010 124/78 -- 79 20 96 % -- -- 09/16/21 1015 147/77 -- 78 14 95 % 5 N;B 09/16/21 1020 -- -- -- -- 99 % -- -- 09/16/21 1025 146/80 -- 79 15 96 % -- -- Anesthesia Type: general ETT Pre-op Diagnosis Codes: * Diagnosis unknown [R69] Mental Status: awake, sufficiently recovered from acute administration of anesthesia to participatein the evaluation and neurologic status has returned to expected level of consciousness Neuro Status: No numbness, tingling or visual disturbances Respiratory Function: natural Cardiac Function: stable Postop Pain: acceptable to the patient Postop Hydration: adequate Postop Nausea: none Assessment: no apparent anesthetic complications, patient tolerated procedure well and no evidence of recall Patient Disposition: Release from Anesthesia Care Additional Comments: Restless legs/similar with previous anesthetics COMPLICATIONS: No complications documented. * Mariusz Drew MD - 09/16/2021 6:38 AM CDT ANESTHESIA PREOPERATIVE EVALUATION NOTE Procedure: THORACIC EIGHT- THORACIC NINE LAMINECTOMY FOR PLACEMENT OF A DORSAL COLUMN STIMULATION SYSTAM AND PLACEMENT OF THE BATTERY IN THE LOWER LUMBAR REGION Vitals: No data found. LMP: No LMP recorded. OB Status: unknown ANESTHESIA PRE-EVALUATION NOTE The patient is a [...] procedural Anesthetic Plan was discussed with the TERRAZZO WORKER APPRENTICE. BMI, Height, Weight Tobacco History Estimated body mass index is 52.91 kg/m?? as calculated from the following: Height as of this encounter: 1.549 m (5' 1 ). Weight as of this encounter: 127 kg (280 lb). Social History Tobacco Use Smoking Status Former Smoker ??? Packs/day: 0.50 ??? Quit date: 12/05/1977 ??? Years since quittin.8 Smokeless Tobacco Never Used Alcohol History Drug History Social History Substance and Sexual Activity Alcohol Use No Social History Substance and Sexual Activity Drug Use No Outpatient Medications: Inpatient Medications: Outpatient Medications Marked as Taking for the 09/16/21 encounter (Hospital Encounter) Medication Sig Last Dose ??? amitriptyline at bedtime ??? anastrozole anastrozole 1 mg tablet ??? exemestane Take 25 mg by mouth DAILY ??? HumaLOG KwikPen ADMINISTER 22 UNITS BEFORE EACH MEAL. MAX DAILY DOSE OF 120 UNITS ??? HYDROcodone-acetaminophen hydrocodone 5 mg-acetaminophen 325 mg tablet ??? Lantus SoloStar ADMINISTER 50 UNITS UNDER THE SKIN EVERY MORNING ??? oxybutynin Take 5 mg by mouth TID. ??? pantoprazole EC pantoprazole 40 mg tablet,delayed release ??? Xarelto Take 20 mg by mouth daily with dinner. 09/11/2021 ??? rOPINIRole TAKE 1 TABLET BY MOUTH EVERY NIGHT Current Facility-Administered Medications Medication Dose Last Admin ??? magnesium sulfate 3 g ??? vancomycin 1,000 mg Allergies: Allergies Allergen Reactions ??? Latex Rash ??? Ceftriaxone Anaphylaxis and Shortness of Breath R ??? Cephalosporins Anaphylaxis and Shortness of Breath ??? Lorazepam Other and Unknown Aggrevates restless leg syndrome ??? Levofloxacin Skin Reactions ??? Lisinopril Swelling ??? Ketorolac Itching ??? Metoclopramide Other Twitching ??? Oxycodone Nausea and/or Vomiting ??? Pregabalin Other ??? Trazodone Other Shaky, restlessness, itching, throat swelling ??? Ceftriaxone Sodium In Dextrose Shortness of Breath ??? Piperacillin-Tazobactam In D5w Rash ??? Reslizumab Unknown Relevant Problems No relevant active problems Problem List: Patient Active Problem List Diagnosis Date Noted ??? Chronic back pain 08/16/2021 Priority: High Medical History: Past Medical History: Diagnosis Date ??? DVT (deep venous thrombosis) ??? GERD (gastroesophageal reflux disease) ??? Other pulmonary embolism without acute cor pulmonale ??? rls ??? Type 2 diabetes mellitus without complications Surgical History: Past Surgical History: Procedure Laterality Date ??? Arthroplasty Right ??? Section ??? Cholecystectomy, Laparoscopic ??? Hernia Repair ??? Knee Arthroscopy bilateral ??? Mastectomy SENIOR NURSE MANAGER Status: No LMP recorded. unknown OB History No obstetric history on file. Covid Vaccine: Lab Results: No results found for requested labs within last 120 days. No results found for requested labs within last 120 days. documented in this encounter Procedure Notes * Mary Rinaldi APRN-CRNA - 09/16/2021 8:19 AM CDTAssociated Order(s): ETT Placement Endotracheal Tube Placement: Patient Location: OR. Intubation Event Date/Time: 09/16/2021 7:45 AM Procedure: intubation (78296). Procedure Section: Sedation: under general anesthesia. Indications for Airway Management: anesthesia Procedure pretreatments used? No Induction: modified rapid sequence Patient Position: sniffing and supine Mask Ventilation: not attempted. Blade Type: Video (elective glidescope intubation due to airway assessment.) Blade Size: 3 Laryngoscopy View: grade 1 (full cords) Intubation Adjuncts: stylet, video laryngoscope and cricoid pressure Tube: endotracheal tube Placement: oral Tube type: cuff - inflated Tube Size (MM): 7 Depth of Insertion (CM): 21 Measured From: teeth Cuff volume (mL): 7 Cuff Inflated With: air Number of Attempts: 1. Placement Verified By: direct visualization, bilateral breath sounds, chest auscultation and CO2 monitor Tube secured with: adhesive tape. Dentition unchanged? Yes Difficult Airway? No. Procedure Start Time: 09/16/2021 7:45 AM. Staff Section Anesthesia Provider: Mary Rinaldi APRN-CRNA, Performed the procedure Additional Comments: Dentition and oral mucosa unchanged from pre-op evaluation. Slightly anterior even with glidescope. Would recommend in the future. . documented in this encounter Miscellaneous Notes * Anesthesia Transfer of Care - Mary Rinaldi, FINANCIAL CONTROLLER-TERRAZZO WORKER APPRENTICE - 09/16/2021 10:03 AM CDT ANESTHESIA TRANSFER OF CARE NOTE Today's Date: 09/16/2021 Date of : 1955 Patient: Karly Marques Procedure(s): THORACIC EIGHT- THORACIC NINE LAMINECTOMY FOR PLACEMENT OF A DORSAL COLUMN STIMULATION SYSTAM AND PLACEMENT OF THE BATTERY IN THE LOWER LUMBAR REGION Surgeon(s): Primary: Maxi Gregg MD Preop Diagnosis: Pre-op Diagnois: * Diagnosis unknown [R69] Pre-op Meds (From admission, onward) Start Stop Status Route Frequency Ordered 09/16/21 0700 acetaminophen (Tylenol) tablet 1,000 mg 09/16 0720 Completed PO ONCE 09/16/21 0646 09/16/21 0957 fentaNYL (PF) (Sublimaze) injection 50 mcg -- Verified IV EVERY 3 MIN PRN 09/16/21 0957 09/16/21 0957 fentaNYL (PF) (Sublimaze) injection 50 mcg -- Verified IV EVERY 3 MIN PRN 09/16/21 0957 09/16/21 0957 HYDROmorphone (Dilaudid) injection 0.5 mg -- Verified IV EVERY 5 MIN PRN 09/16/21 0957 09/16/21 0700 lactated ringers infusion -- Verified IV PRE-OP CONTINUOUS 09/16/21 0646 09/16/21 1000 lactated ringers infusion 09/17 0959 Verified IV CONTINUOUS 09/16/21 0957 09/16/21 0646 lidocaine PF (Xylocaine MPF) 1 % injection 0.2 mL -- Verified INFILTRATION PRE-OP MULTIPLE 09/16/21 0646 09/16/21 0630 magnesium sulfate 3 g in 50 mL bolus 09/16 1829 Verified IV ONCE 09/16/21 0623 09/16/21 0957 naloxone (Narcan) injection 0.04 mg -- Verified IV POST-OP MULTIPLE 09/16/21 0957 09/16/21 0957 ondansetron (Zofran) injection 4 mg -- Verified IV ONCE PRN 09/16/21 0957 09/16/21 0630 vancomycin (Vancocin) 1,000 mg in 0.9% NaCl IV 250 mL IVPB 09/16 0753 Completed IV PRE-OP ONCE 09/16/21 0626 Post-op Diagnosis: * Diagnosis unknown [R69] . [...] Pulse Resp SpO2 Pain Rating Score #1 09/16/2116 -- -- -- -- -- 3 09/16/21 0705 159/86 97.3 ??F (36.3 ??C) 86 18 100 % -- Lines, Drains, and Airways Type Details Placement Removal Peripheral IV Date: 09/16/21; Time: 716; Orientation: Right; Location: Wrist; Placed By: Luis A; Gauge: 20 Gauge; Locals: Injectable; Tolerance: Well 09/16/21716 by Yeni Orellana RN ETT Date: 09/16/21; Time: 744; Placed By: Mary Rinaldi APRN-TERRAZZO WORKER APPRENTICE; Vent: mask not attempted; Induction: Modified Rapid Sequence; Blade Type: Video; Blade Size: 3; Laryngoscopy View: Grade 1 (fullcords); Intubation Adjuncts: Stylet, Video Laryngoscope, Cricoid Pressure; Tube: Endotracheal Tube;Placement: Oral; Tube Type: Cuffed-inflated; Tube Size(mm): 7 MM; Depth of Insertion: 21 CM; Measured From: teeth; Attempts: 1; Cuff Infated: Air; Cuff Vol(mL): 7 mL; Verified By: Direct visualization, Bilateral breath sounds, Chest Auscultation, CO2 Monitor 09/16/21 0745 by Mary Rinaldi APRN-CRNA 09/16/21 0956 by Mary Rinaldi APRN-CRNA Intraprocedure I/O Totals Intake lactated ringers infusion 1000.00 mL vancomycin (Vancocin) 1,000 mg in 0.9% NaCl IV 250 mL IVPB 250.00 mL Total Intake 1250 mL Patient Transfer Location: PACU Transport Airway: supplemental O2 and spontaneous respirations Complications: None Handoff Given? Yes Checklist or [...] of report from the receiving PACUteam. KALIE Mckenzie documented in this encounter Plan of Treatment Not on file documented as of this encounter Procedures Procedure Name Priority Date/Time Associated Diagnosis Comments ENDOTRACHEAL TUBE NOTE Routine 09/16/2021 8:19 AM CDT documented in this encounter Results * ETT LINE PERFORMABLE (09/16/2021 8:19 AM CDT) Narrative Mary Rinaldi APRN-CRNA - 09/16/2021 8:19 AM CDT Mary Rinaldi APRN-CRNA ? 09/16/2021 ??8:20 AM Endotracheal Tube Placement: ? Patient Location: OR. Intubation Event Date/Time: ??09/16/2021 7:45 AM Procedure: intubation ([id number]). Procedure Section: ?? Sedation: under general anesthesia. [...] Staff Section ? Anesthesia Provider: Mary Rinaldi APRN-TERRAZZO WORKER APPRENTICE, Performed the procedure Additional Comments: Dentition and oral mucosa unchanged from pre-op evaluation. Slightly anterior even with glidescope. Would recommend in the future. . Mariusz Drew MD GENERAL ANESTHESIA O RDERABLES documented in this encounter Visit Diagnoses Not on filedocumented in this encounter Administered Medications Inactive Administered Medications - up to 3 most recent administrations Medication Order MAR Action Action Date Dose Rate Site dexAMETHasone (Decadron) injection Intravenous, PRN, Starting on Valeri 09/16/21 at 0751, Until Valeri 09/16/21 at 1003, Anesthesia Intra-op $ Given 09/16/2021 7:51 AM CDT 8 mg dexmedeTOMIDine (Precedex) injection Intravenous, PRN, Starting on Valeri 09/16/21 at 0735, Until Valeri 09/16/21 at 1003, Anesthesia Intra-op $ Given 09/16/2021 9:22 AM CDT 10 mcg $ Given 09/16/2021 7:56 AM CDT 10 mcg $ Given 09/16/2021 7:49 AM CDT 10 mcg diphenhydrAMINE (Benadryl) injection Intravenous, PRN, Starting on Valeri 09/16/21 at 0751, Until Valeri 09/16/21 at 1003, Anesthesia Intra-op $ Given 09/16/2021 7:51 AM CDT 50 mg droperidol (Inapsine) injection Intravenous, PRN, Starting on Valeri 09/16/21 at 0925, Until Valeri 09/16/21 at 1003, Anesthesia Intra-op $ Given 09/16/2021 9:25 AM CDT 0.625 mg fentaNYL (PF) (Sublimaze) injection Intravenous, PRN, Starting on Valeri 09/16/21 at 0735, Until Valeri 09/16/21 at 1003, Anesthesia Intra-op $ Given 09/16/2021 8:20 AM CDT 50 mcg $ Given 09/16/2021 7:50 AM CDT 25 mcg $ Given 09/16/2021 7:35 AM CDT 25 mcg ketamine (Ketalar) injection Intravenous, PRN, Starting on Valeri 09/16/21 at 0750, Until Valeri 09/16/21 at 1003, Anesthesia Intra-op $ Given 09/16/2021 9:00 AM CDT 25 mg $ Given 09/16/2021 7:50 AM CDT 25 mg lactated ringers infusion at 20 mL/hr, Intravenous, PRE-OP CONTINUOUS, Starting on Valeri 09/16/21 at 0700, Until Valeri 09/16/21 at 1622, Pre-op $ New Bag/Syringe 09/16/2021 9:20 AM CDT Restarted 09/16/2021 7:36 AM CDT $ New Bag/Syringe 09/16/2021 7:21 AM CDT 20 mL/ hr lidocaine hcl (PF) (Xylocaine MPF) 2 % injection Intravenous, PRN, Starting on Valeri 09/16/21 at 0744, Until Valeri 09/16/21 at 1003, Anesthesia Intra-op $ Given 09/16/2021 7:44 AM CDT 100 mg midazolam (Versed) injection Intravenous, PRN, Starting on Valeri 09/16/21 at 0735, Until Valeri 09/16/21 at 1003, Anesthesia Intra-op $ Given 09/16/2021 7:35 AM CDT 2 mg ondansetron (Zofran) injection Intravenous, PRN, Starting on Valeri 09/16/21 at 0922, Until Valeri 09/16/21 at 1003, Anesthesia Intra-op $ Given 09/16/2021 9:22 AM CDT 8 mg phenylephrine 100 mcg/mL injection Intravenous, PRN, Starting on Valeri 09/16/21 at 0848, Until Valeri 09/16/21 at 1003, Anesthesia Intra-op $ Given 09/16/2021 8:48 AM CDT 100 mcg propofol (Diprivan) injection Intravenous, PRN, Starting on Valeri 09/16/21 at 0744, Until Valeri 09/16/21 at 1003, Anesthesia Intra-op $ Given 09/16/2021 7:44 AM CDT 200 mg propofol (Diprivan) injection Intravenous, CONTINUOUS PRN, Starting on Valeri 09/16/21 at 0752, Until Valeri 09/16/21 at 1003, Anesthesia Intra-op Rate Change 09/16/2021 8:46 AM CDT 100 mcg/kg/min 77.58 mL/hr $ New Bag/Syringe 09/16/2021 7:52 AM CDT 150 mcg/kg/min 11 6.37 mL/hr succinylcholine (Anectine) injection Intravenous, PRN, Starting on Valeri 09/16/21 at 0744, Until Valeri 09/16/21 at 1003, Anesthesia Intra-op $ Given 09/16/2021 7:44 AM CDT 100 mg tranexamic acid (Cyklokapron) injection Intravenous, PRN, Starting on Valeri 09/16/21 at 0808, Until Valeri 09/16/21 at 1003, Anesthesia Intra-op $ Given 09/16/2021 8:08 AM CDT 1,000 mg vancomycin (Vancocin) 1,000 mg in 0.9% NaCl IV 250 mL IVPB 1,000 mg, at 250 mL/hr, Intravenous, PRE-OP ONCE, 1 dose, On Valeri 09/16/21 at 0630, Indication for anti-infective therapy: Surgical prophylaxis $ New Bag/Syringe 09/16/2021 7:53 AM CDT 1,000 mg documented in this encounter Care Teams Substation Operator Automatic Relationship Specialty Start Date End Date Justen Gale MD PCP - General 07/05/21 documented as of this encounter
--- OUTSIDE RECORDS SUMMARY | 2024-04-26 02:34 | XMS_ITS | Encounter Summary ---
Author Organization [facility] Address [address] [facility] [place] [address] Care Team Providers Care Receiving And Processing Supervisor Name Role Phone Antoinette Zhu MD Primary Care Provider Encounter Details Date Type Department Care Team (Latest Contact Info) Description 12/16/2011 Hospital Outpatient Visit Historic [facility] [address] [place] [address] Nixon Moreno MD [address] [place] [address] Discharge Disposition: Home or Self Care Social [...] on filedocumented in this encounter Care Teams Receiving And Processing Supervisor Relationship Specialty Start Date End Date Antoinette Zhu MD [address] [place] [address] [address] [place] [phone] PCP - General 10/21/11 07/04/21 documented as of this encounter
--- OUTSIDE RECORDS SUMMARY | 2024-04-26 02:34 | XMS_ITS | Encounter Summary ---
Author Organization [facility] Address [address] [facility] [place] [address] Care Team Providers Care Cyber Analyst Name Role Phone Justen Gale MD Primary Care Provider [phone] Encounter Details Date Type Department Care Team (Late st Contact Info) Description 08/16/2021 Orders Only [facility] [place] [id number] Maxi Gregg MD [address] [place] [address] [address] [place] [phone] Chronic bilateral low back pain without sciatica ; Pre-op testing Social History Tobacco Use Types Packs/Day Years [...] Visit Diagnoses Diagnosis Chronic bilateral low back pain without sciatica- Primary Pre-op testing Preoperative examination, unspecified documented in this encounter Care Teams Cyber Analyst Relationship Specialty Start Date End Date Justen Gale MD PCP - General 07/05/21 documented as of this encounter
--- OUTSIDE RECORDS SUMMARY | 2024-04-26 02:34 | XMS_ITS | Encounter Summary ---
Author Organization [facility] Address [address] [facility] [place] [address] Care Team Providers Care Acidizer Helper Name Role Phone Antoinette Zhu MD Primary Care Provider [phone] Encounter Details Date Type Department Care Team (Late st Contact Info) Description 01/27/2012 Hospital Outpatient Visit Historic [facility] OUT[facility] SERVICES [address] [place] [address] [phone] Noe Griffiths MD [address] [place] [address] OF HEMATOLOGY & MEDICAL ONCOLOGY [place], [place] [id number] Discharge Disposition: Home or Self Care Social [...] Procedure Name Priority Date/Time Associated Diagnosis Comments LAMBDA LIGHT CHAINS FREE Routine 01/27/2012 11:57 AM CDT URINALYSIS W/MICROSCOPIC NO CULTURE STAT 01/27/2012 11:57 AM CDT PROTEIN ELECTROPHORESIS WO INTERP BLOOD Routine 01/27/2012 11:57 AM CDT HONEY BLOOD SCREEN Routine 01/27/2012 11:5 7 AM CDT IMMUNOFIXATION BLOOD Routine 01/27/2012 11:57 AM CDT C-REACTIVE PROTEIN Routine 01/27/2012 11 :57 AM CDT TRANSFERRIN Routine 01/27/2012 11:57 AM CDT T3 FREE Routine 01/27/2012 11:57 AM CDT KAPPA/LAMBDA LITE CHAIN FREE PANEL Routine 01/27/2012 11:57 AM CDT ERYTHROCYTE SEDIMENTATION RATE STAT 01/27/2012 11:57 AM CDT RETIC COUNT STAT 01/27/2012 11:57 AM CDT CBC W AUTO DIFFERENTIAL STAT 01/27/20 12 11:57 AM CDT COMPREHENSIVE METABOLIC PANEL STAT 01/27/2012 11:57 AM CDT LDH BLOOD STAT 01/27/2012 11:57 AM CDT IRON BLOOD Routine 01/27/2012 11:57 AM CDT CK BLOOD Routine 01/27/2012 11:57 AM CDT TSH Routine 01/27/2012 11:57 AM CDT T4 FREE Routine 01/27/2012 11:57 AM CDT T3 TOTAL Routine 01/27/2012 11:57 AM CDT FERRITIN Routine 01/27/2012 11:57 AM CDT documented in this encounter Results * HONEY BLOOD SCREEN (01/27/2012 11:57 AM CDT) HONEY NONE DETECTED NONE DETECT [facility] 01/27/2012 11:5 7 AM CDT 01/27/2012 12:42 PM CDT Noe Griffiths MD LAB - CHEMISTRY ANGEL SPEARS Performing Organization Address [facility] Co de Phone Number [address] [phone] * IMMUNOFIXATION (01/27/2012 11:57 AM CDT) Immunofixation Result SEE NOTE [facility] Comment: 1. Serum immunofixation electrophoresis shows [...] - CHEMISTRY ANGEL SPEARS Performing Organization Address [facility] Co de Phone Number [address] [phone] * LAMBDA LIGHT CHAINS FREE (01/27/2012 11:57 AM CDT) Immunoglobulin Lambda Free Light Chain 16.0 5.7 - 26.3 mg/L [facility] 01/27/2012 11:5 7 AM CDT 01/27/2012 12:42 PM CDT Noe Griffiths MD LAB - CHEMISTRY ANGEL SPEARS Performing Organization Address [facility] Co de Phone Number [address] [phone] * KAPPA/LAMBDA LITE CHAIN FREE PANEL (01/27/2012 11:57 AM CDT) Free [place] Quantitative 15.8 3.3 - 19.4 mg/L [facility] Free [place]/Lambda Ratio 0.99 0.26 - 1.65 [facility] Interpretation Free Lite SEE NOTE [facility] Comment: INTERPRETATION: These results do not [...] - CHEMISTRY ANGEL SPEARS Performing Organization Address [facility]/ZIP Co de Phone Number [address] [phone] * RETIC COUNT (01/27/2012 11:57 AM CDT) Pathologist [facility] Reticulocyte % 1.7 0.3 - 2.0 % [facility] Reticulocyte Absolute 0.08 0.02 - 0.10 # [facility] 01/27/2012 11:5 7 AM CDT 01/27/2012 12:42 PM CDT Noe Griffiths MD LAB - HEMATOLOGY ORD [place]GR[place] Performing Organization Address City/[facility]/ZIP Co de Phone Number [address] [phone] * (ABNORMAL) CBC W AUTO DIFFERENTIAL (01/27/2012 11:57 AM CDT) WBC 8.8 3.5 - 10.5 10^3/uL [facility] RBC 4.71 3.90 - 5.00 10^6/uL [facility] Hemoglobin 13.2 12.0 - 15.5 g/dL [facility] Hematocrit 41.6 35.0 - 45.0 % [facility] MCV 88.3 81.0 - 97.0 FL [facility] MCH 28.0 28.0 - 34.0 PG [facility] MCHC 31.7(L) 32.0 - 36.0 G/DL [facility] Platelet 330 150 - 400 10^3/uL [facility] RDW 13.5 11.2 - 14.8 % [facility] RDW-SD 43.5 36 - 50 FL [facility] MPV 9.9 9.3 - 12.8 FL [facility] Neutrophils % 59.8 35.0 - 70.0 % [facility] Lymphocytes % 32.4 19.7 - 55.1 % [facility] Monocytes % 5.1 3 - 15 % [facility] Eosinophils % 2.5 0.0 - 6.0 % [facility] Basophils % 0.2 0.0 - 1.5 % [facility] Neutrophils Absolute 5.3 1.7 - 7.0 10^3/uL [facility] Lymphocyte Absolute 2.9 0.8 - 2.9 10^3/uL [facility] Monocytes Absolute 0.5 0.14 - 0.66 10^3/uL [facility] Eosinophils Absolute 0.22 0.00 - 0.22 10^3/uL [facility] Basophils Absolute 0.02 0.02 - 0.06 10^3/uL [facility] Differential Type AUTO DIFFERENTIAL [facility] 01/27/2012 11:5 7 AM CDT 01/27/2012 12:42 PM CDT Noe Griffiths MD LAB - HEMATOLOGY ORD [place] [facility] Organization Address City/State/ZIP Co de Phone Number [facility] [address] [place] [address] * FERRITIN (01/27/2012 11:57 AM CDT) Ferritin 105 13 - 204 ng/mL [facility] 01/27/2012 11:5 7 AM CDT 01/27/2012 12:42 PM CDT Noe Griffiths MD LAB - CHEMISTRY ANGEL SPEARS [facility] [address] [place] [address], [facility] [phone] * TRANSFERRIN (01/27/2012 11:57 AM CDT) Transferrin 266 174 - 382 mg/dL [facility] Transferrin Saturation % 24 16 - 50 % [facility] 01/27/2012 11:5 7 AM CDT 01/27/2012 12:42 PM CDT Noe Griffiths MD LAB - CHEMISTRY ANGEL SPEARS Performing Organization Address [facility]/ZIP Co de Phone Number [facility] [address] [phone] * PROTEIN ELECTROPHORESIS WO INTERP BLOOD (01/27/2012 11:57 AM CDT) Interpretation Serum Protein SEE NOTE [facility] Comment: Serum protein electrophoresis shows characteristic [...] by calling the Special Chemistry Laboratory at [phone]. ?Marce Jerez, Ph.D. Protein Total 7.4 6.0 - 8.3 g/dL [facility] Albumin 3.8 3.3 - 5.6 G/DL [facility] Alpha-1 Globulins 0.2 0.1 - 0.3 G/DL [facility] Alpha-2 Globulins 0.8 0.5 - 1.0 G/DL [facility] Beta Globulins 1.1 0.6 - 1.1 G/DL [facility] Gamma Globulins 1.5 0.6 - 1.6 G/DL [facility] 01/27/2012 11:5 7 AM CDT 01/27/2012 12:42 PM CDT Noe Griffiths MD LAB - CHEMISTRY ANGEL SPEARS [address] [phone] * IRON BLOOD (01/27/2012 11:57 AM CDT) Iron 81 40 - 150 mcg/dL [facility] 01/27/2012 11:5 7 AM CDT 01/27/2012 12:42 PM CDT Noe Griffiths MD LAB - CHEMISTRY ANGEL SPEARS Performing Organization Address [facility] Co de Phone Number [address] [phone] * (ABNORMAL) C-REACTIVE PROTEIN (01/27/2012 11:57 AM CDT) C-Reactive Protein 1.9(H) <or= 0.5 mg/dL [facility] 01/27/2012 11:5 7 AM CDT 01/27/2012 12:42 PM CDT Noe Griffiths MD LAB - CHEMISTRY ANGEL SPEARS Performing Organization Address [facility] Co de Phone Number [address] [phone] * (ABNORMAL) ERYTHROCYTE SEDIMENTATION RATE (01/27/2012 11:57 AM CDT) Erythrocyte Sedimentation Rate Westergren 26(H) 0 - 20 MM/HR [facility] 01/27/2012 11:5 7 AM CDT 01/27/2012 12:42 PM CDT Noe Griffiths MD LAB - HEMATOLOGY [place] [address] [phone] * (ABNORMAL) URINALYSIS W/MICROSCOPIC NO CULTURE (01/27/2012 11:57 AM CDT) Color UA YELLOW STRW,YELLOW [facility] Clarity UA CLOUDY(A) CLEAR [facility] Specific [place] Urine 1.020 1.001 - 1.030 [facility] pH UA <= 5.0 5.0 - 8.0 [facility] Protein UA TRACE <20 mg/dL [facility] Glucose UA NEGATIVE NEGATIVE mg/dL [facility] Ketones NEGATIVE NEGATIVE mg/dL [facility] Bilirubin UA NEGATIVE NEGATIVE mg/dL [facility] Blood UA TRACE(A) NEGATIVE [facility] Nitrite UA NEGATIVE NEGATIVE [facility] Leukocyte Esterase TRACE(A) NEGATIVE [facility] Urobilinogen UA < 2.0 <2.0 mg/dL [facility] WBC Urine 7(H) 0 - 2 /HPF [facility] Bacteria Urine MANY(A) <OCCASIONAL /HPF [facility] Squamous Epithelial Cells UA 1 0 - 1 /HPF [facility] 01/27/2012 11:5 7 AM CDT 01/27/2012 12:42 PM CDT Noe Griffiths MD LAB - URINALYSIS ORD ERABLES [address] [phone] * LDH BLOOD (01/27/2012 11:57 AM CDT) Pathologist [facility] LDH Total 201 125 - 243 Units/L [facility] 01/27/2012 11:5 7 AM CDT 01/27/2012 12:42 PM CDT Noe Griffiths MD LAB - CHEMISTRY ORDE RABLES [address] [phone] * (ABNORMAL) COMPREHENSIVE METABOLIC PANEL (01/27/2012 11:57 AM CDT) Pathologist [facility] BUN 17 7 - 26 mg/dL [facility] Creatinine 0.6 0.6 - 1.2 mg/dL [facility] eGFR by MDRD > 60 ML/MIN [facility] Comment: Chronic kidney disease: ??<60 ml/min Kidney failure: ?<15 ml/min Based on BSA of 1.73m2. Sodium 139 136 - 145 mmol/L [facility] Potassium 3.7 3.5 - 4.5 mmol/L [facility] Chloride 106 98 - 107 mmol/L [facility] CO2 24 22 - 29 mmol/L [facility] Glucose 143(H) 70 - 115 mg/dL [facility] Calcium 9.4 8.4 - 10.2 mg/dL [facility] Protein Total 7.8 6.0 - 8.3 g/dL [facility] Albumin 3.2(L) 3.4 - 5.0 g/dL [facility] Bilirubin Total 0.6 0.2 - 1.2 mg/dL [facility] Alkaline Phosphatase 90 40 - 150 Units/L [facility] ALT 14 0 - 55 Units/L [facility] AST 13 5 - 34 Units/L [facility] Anion Gap 13 8 - 18 [facility] BUN/Creatinine Ratio 28(H) 7 - 23 [facility] Osmolality Calculation 277 270 - 300 mOsm/kg [facility] Albumin/Globulin Ratio 0.7(L) 1.1 - 2.3 [facility] 01/27/2012 11:5 7 AM CDT 01/27/2012 12:42 PM CDT Noe Griffiths MD LAB - CHEMISTRY ORDE [facility] Organization Address City/State/ZIP Co de Phone Number [address] [phone] * CK BLOOD (01/27/2012 11:57 AM CDT) CK Total 85 30 - 200 Units/L [facility] 01/27/2012 11:5 7 AM CDT 01/27/2012 12:42 PM CDT Noe Griffiths MD LAB - CHEMISTRY ANGEL SPEARS [address] [phone] * (ABNORMAL) TSH (01/27/2012 11:57 AM CDT) TSH 0.103(L) 0.350 - 4.940 uIU/mL [facility] 01/27/2012 11:5 7 AM CDT 01/27/2012 12:42 PM CDT Noe Griffiths MD LAB - CHEMISTRY ANGEL SPEARS Performing Organization Address [facility]/ZIP Co de Phone Number [address] [phone] * T4 FREE (01/27/2012 11:57 AM CDT) T4 Free 1.0 0.7 - 1.5 ng/dL [facility] 01/27/2012 11:5 7 AM CDT 01/27/2012 12:42 PM CDT Noe Griffiths MD LAB - CHEMISTRY ANGEL SPEARS Performing Organization Address City/[facility]/ZIP Co de Phone Number [address] [phone] * (ABNORMAL) T3 TOTAL (01/27/2012 11:57 AM CDT) T3 Total 167(H) 58 - 159 ng/dL [facility] 01/27/2012 11:5 7 AM CDT 01/27/2012 12:42 PM CDT Noe Griffiths MD LAB - CHEMISTRY ANGEL SPEARS [address] [phone] * (ABNORMAL) T3 FREE (01/27/2012 11:57 AM CDT) T3 Free 4.0(H) 1.7 - 3.7 pg/mL [facility] 01/27/2012 11:5 7 AM CDT 01/27/2012 12:42 PM CDT Noe Griffiths MD LAB - CHEMISTRY ANGEL SPEARS [facility] [address] [place] [address] documented in this encounter Visit Diagnoses Not on filedocumented in this encounter Care Teams Acidizer Helper Relationship Specialty Start Date End Date Antoinette Zhu MD [address] [place] [phone] PCP - General 10/21/11 07/04/21 documented as of this encounter
--- OUTSIDE RECORDS SUMMARY | 2024-04-26 02:39 | XMS_ITS | Clinical Summary ---
Author Organization [facility] Address [address] [place] [address]. [place] [address] [place] [address] Care Team Providers Care Fire Operations Forester Name Role Phone Meena Bansal MD Unavailable [phone] Justen Gale MD Primary Care Provider Allergies Active Allergy Reactions Criticality Noted Date Comments Lorazepam Hyperactive High 03/18/2018 Aggrevates restless leg syndrome Cephalosporins Anaphylaxis High 03/22/2017 Levofloxacin Hives Medium 04/20/2017 Meropenem Rash Medium 02/16/2022 Nitrofurantoin Other (see comment),Itching,Rash Medium 10/12/2021 Oxycodone Vomiting 03/22/2017 Metoclopramide Hyperactive 03/22/2017 Ceftriaxone Shortness of Breath High 08/20/2017 Trazodone Other (see comment) Low 11/03/2017 Shaky, restlessness, itching, throat swelling Medications exemestane 25 MG tablet Take 1 tablet by mouth daily with supper. Give with food 3 08/10/19 18 Active ROPINIROLE HYDROCHLORIDE 5 MG Tab Take 1 tablet (5 mg total) by mouth nightly at bedtime. 3 07/15/19 18 Active insulin lispro 100 UNIT/ML injection (VIAL) Inject 28 Units into the skin see administration instructions. 28 units before breakfast. 28 units before lunch. 28 units before dinner. Patient also uses sliding scale: BS>140, add 1 unit for every 15 mg/dl >140 Active insulin glargine (LANTUS SOLOSTAR) 100 UNIT/ML injection (PEN) Inject 32 Units into the skin every morning. Active HYDROcodone-acetam inophen (NORCO) 10-325 MG tablet Take 1 tablet by mouth every 6 (six) hours as needed. 06/28/19 Active XARELTO 20 MG Tab tablet Take 1 tablet (20 mg total) by mouth every evening. 07/18/19 21 Active PULSE OXIMETER, DME, Please use the pulse oximeter when you are short of breath. If your reading is less than 85% after exerting yourself, or less than 90% at rest, please return to the emergency department. If you feel you are in immediate danger, please call 911. 1 Device 04/19/20 Active albuterol sulfate HFA 108 (90 Base) MCG/ACT inhaler Inhale 2 puffs into the lungs every 4 (four) hours as needed for Wheezing or Shortness of breath. 8 g 04/19/20 21 Active naloxone 4 MG/0.1ML nasal spray 1 spray by Nasal route as needed for Opioid reversal. 05/13/19 22 Active ondansetron 4 MG disintegrating tablet Take 1 tablet (4 mg total) by mouth every 8 (eight) hours as needed for Nausea. 20 tablet 07/20/19 22 Active gabapentin (NEURONTIN) 300 MG capsule Take 1 capsule (300 mg total) by mouth 3 (three) times daily. 06/20/19 24 Active methenamine (HIPREX) 1 g tablet Take 1 tablet (1 g total) by mouth 2 (two) times daily. 07/12/19 24 Active oxybutynin XL (DITROPAN XL) 15 MG 24 hr tablet Take 1 tablet (15 mg total) by mouth daily. 09/25/19 Active Active Problems Problem Noted Date Diagnosed Date Pneumonia 10/14/2023 CAP (community acquired pneumonia) 10/13/2023 Anxiety state 09/05/2020 Depressive disorder 09/05/2020 Dyslipidemia 09/05/2020 Eustachian tube disorder 09/05/2020 Gastroesophageal reflux disease 09/05/2020 Malignant tumor of breast ([facility]) 08/22 Knee pain 09/05/2020 Other chronic pain 09/05/2020 Plantar fasciitis of left foot 08/09/2019 Postoperative visit 06/10/2019 Injury of muscle or tendon o f peroneal muscle group at lower leg level 03/30/2019 Peroneal tendinitis 03/30/2019 Sprain of left ankle 03/07/2019 Class 3 severe obesity due t o excess calories with serious comorbidity and body mass index (BMI) of 50.0 to 59.9 in adult ([facility]) 11/15/2018 Abdominal pain 09/09/2018 Diverticulosis 08/30/2018 Pain in the abdomen 08/30/2018 Assessment & Plan (08/31/2018 3:09 AM CDT): Acute. Present on admission. Unclear source of patient's pain as CT abdo/pelvis negative. Gastroenteritis likely given nausea and diarrhea. GERD possible. EKG and troponin unremarkable. -admit to family medicine service for inability to tolerate PO and IVF -zofran for nausea -LR at 150 cc/hr -toradol for pain -serial abdominal exams -stool cultures, stool OP -FOBT negative -c-diff -consider CTA abdomen if pain persistent and exam concerning for mesenteric ischemia -GI scope as outpatient as patient is due for colon cancer screening and firm mass palpated on rectal exam Low back pain 08/30/2018 Assessment & Plan (08/30/2018 10:02 PM CDT): Chronic. Controlled. -Continue home norco. Thyroid nodule 08/07/2018 Overview (09/05/2020): Last Assessment & Plan: Patient recently found to have nodules on exam. Thyroid U/S 05/2018 with total 4 nodules. 2 of these are low to intermediate suspicion and meet WM criteria for FNA based on size. On clinic ultrasound today, left thyroid nodule appeared possibly taller than wide. - will have patient return to clinic on a Monday morning to complete FNA of 2.9 cm right inferior thyroid nodule and 2.1 cm left inferior nodule. ACS (acute coronary syndrome) ([facility]) 03/18/2018 Assessment & Plan (03/18/2018 2:55 AM COMPUTER INFORMATION SYSTEMS PROFESSOR): Acute, patient reported as epigastric pain however may be atypical presentation. Troponins negative x2. Also in differential is GERD, PUD - Admit to observation -Follow-up troponins -Monitor vitals -N.p.o. at midnight - Stress echo in a.m. - Consider cardiology consult based on results of stress test -Begin Protonix Epigastric pain 03/18/2018 Assessment & Plan (03/18/2018 5:39 AM COMPUTER INFORMATION SYSTEMS PROFESSOR): Acute, non radiating, worsens with lying down, not related to meals. Differential includes gastroparesis 2/2 diabetes/medication side effect vs. GERD vs. PUD - started on protonix - consider titrating down ropinerole, side effect of affecting gastric motility as it is a dopaminergic agent - f/u HbA1c in setting of possible worsening DM, may result in impaired gastric motility Speech impairment 01/30/2018 CVA (cerebral vascular accident) ([facility]/ C) 01/24/2018 Neck pain on right side 12/01/2017 Anxiety and depression 11/12/2017 Chronic anticoagulation 11/09/2017 Constipation 11/09/2017 Uncontrolled type 2 diabetes mellitus with hyperglycemia, with long-term current use of insulin ([facility]) 11/06/2017 care home (current) use 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 inhibitors 10/23/2017 Lumbosacral spondylosis without myelopathy 10/23 Acute left-sided low back pain with left-sided s ciatica 10/23/2017 Overview (09/05/2020): Overview: Last Assessment & Plan: Likely disc herniation. NSGY to see patient tomorrow. Ordered MRI per NSGY recs. continue with home norco. Last Assessment & Plan: Likely disc herniation. NSGY to see patient tomorrow. Ordered MRI per NSGY recs. continue with home norco. Last Assessment & Plan: Likely disc herniation. NSGY to see patient tomorrow. Ordered MRI per NSGY recs. continue with home norco. 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 -continue exemestane Acute deep vein thrombosis ( DVT) of proximal vein of right lower extremity ([facility]) 10/17/2017 Dysuria 10/17/2017 Hyperthyroidism 10/17/2017 Cancer of overlapping sites of left female breast ([facility]) 10/13/2017 Syncope 09/29/2017 High blood pressure 08/22/2017 Overview (09/05/2020): Last Assessment & Plan: On lisinopril Last Assessment & Plan: On lisinopril Assessment & Plan (08/30/2018 9:57 PM CDT): Chronic. Controlled. -continue home medications Assessment & Plan (03/18/2018 2:51 AM COMPUTER INFORMATION SYSTEMS PROFESSOR): Chronic, BPs currently 127/78 - To new home meds Morbid obesity with BMI of 5 0.0-59.9, adult ([facility]) 08/22/2017 Sepsis ([facility]) 08/22/2017 Type 2 diabetes mellitus ([facility]) 08/22 Overview (09/05/2020): Last Assessment & Plan: Hold janument. Start on SSI and accucheks Assessment & Plan (08/30/2018 10:01 PM CDT): Chronic. Controlled. -continue home insulin regimen of lantus 50 units q am -lispro 20 units with breakfast and lunch. 22 units with dinner. Assessment & Plan (03/18/2018 2:53 AM COMPUTER INFORMATION SYSTEMS PROFESSOR): Chronic, patient reports medical compliance with 50 units of Lantus daily and 15 units of Humalog before meals. No recent HbA1c - Monitor POC glucose -[place] home regimen - Consider sliding scale insulin -Follow-up HbA1c Bronchitis 08/20/2017 LUL (obstructive sleep apnea) 08/01/2017 Assessment & Plan (03/18/2018 2:54 AM COMPUTER INFORMATION SYSTEMS PROFESSOR): Chronic, on CPAP at home - Continue home CPAP History of DVT (deep vein thrombosis) 08/01/2017 Assessment & Plan (03/18/2018 2:54 AM COMPUTER INFORMATION SYSTEMS PROFESSOR): Chronic - Continue home Xarelto Chest pressure 08/01/2017 Diet-controlled diabetes mellitus ([facility]/H CC) 08/01/2017 History of pulmonary embolism 08/01/2017 Hyponatremia 08/01/2017 Positive blood culture 08/01/2017 Acute pharyngitis 07/27/2017 Generalized weakness 07/27/2017 Nausea and vomiting 07/26/2017 Overview (09/05/2020): Overview: Overview: Added automatically from request for surgery [id number] Overview: Added automatically from request for surgery [id number] Added automatically from request for surgery [id number] Neuropathy 07/05/2017 History of breast cancer 02/06/2017 Pulmonary embolism ([facility]/H[facility]) 08/09/2016 Overview (09/05/2020): Last Assessment & Plan: On Rivaroxaban Last Assessment & Plan: On Rivaroxaban Assessment & Plan (08/30/2018 9:55 PM CDT): History of PE and DVT. -continue xarelto Lymphedema of left upper extremity 08/09/2016 Shortness of breath 07/02/2015 Palpitations 07/02/2015 Arthralgia of ankle 01/26/2015 Pain of foot 01/26/2015 Cellulitis of breast 11/11/2014 Rash 11/11/2014 Restless legs syndrome 03/12/2013 Overview (09/05/2020): Overview: Restless leg syndrome Restless leg syndrome Assessment & Plan (03/18/2018 2:54 AM COMPUTER INFORMATION SYSTEMS PROFESSOR): Chronic -Continue home ropinirole Pain of lower extremity 03/12/2013 Overview (09/05/2020): Leg pain Immunizations Name Administration Dates Next Due Influenza (Generic) 01/24/2018, 6,01/23/2016,03/07/2014,2013,05/07/2013,05/07/2013 Influenza Adult (Generic) 02/14/2017,02/11/2015 Tdap (Generic) 02/23/2016 Family History Medical History Relation Comments Cancer Brother Cancer Father Aneurysm Mother Diabetes Mother Heart Disease Mother Hyperlipidemia Mother Hypertension Mother Stroke Mother COPD Sister Cancer Sister Depression Sister Relation Status Comments Brother Father Mother Sister Social History Tobacco Use Types Packs/Day Years Used Date Smoking Tobacco: Former Cigarettes 0.3 2 1 05/23/1974 - 03/23/1977 Smokeless Tobacco: Never Alcohol Use Standard Drinks/Week Comments No 0 (1 standard drink = 0.6 oz pur e alcohol) [facility] Utilities Answer Date Recorded In the past 12 months has e electric, gas, oil, or water [employer] threatened to shut off services in your home? No 10/13/2023 Humiliation, Afraid, Rape, and Kick questionnair e Answer Date Recorded Within the last year, have y ou been afraid of your partner or ex-partner? No 10/13/2023 Within the last year, have y ou been humiliated or emotionally abused in other ways by your partner or ex-partner? No Within the last year, have y ou been kicked, hit, slapped, or otherwise physically hurt by your partner or ex-partner? No 10/13/2023 Within the last year, have y ou been raped or forced to have any kind of sexual activity by your partner or ex-partner? No 10/13/2023 Overall Financial Resource Strain (CARDIA) Answe r Date Recorded How hard is it for you to pa y for the very basics like food, housing, medical care, and heating? Not hard at all 10/13/2023 Hunger Vital Sign Answer Date Recorded Within the past 12 months, y ou worried that your food would run out before you got the money to buy more. Never true 10/13/19 24 Within the past 12 months, t he food you bought just didn't last and you didn't have money to get more. Never true 10/13/2023 PRAPARE - Transportation Answer Date Re corded In the past 12 months, has l ack of transportation kept you from medical appointments or from getting medications? No 09/23 In the past 12 months, has l ack of transportation kept you from meetings, work, or from getting things needed for daily living? No 10/13/2023 Housing Stability Vital Sign Answer [place] e Recorded In the last 12 months, was t here a time when you were not able to pay the mortgage or rent on time? No 10/13/2023 In the past 12 months, how m any times have you moved where you were living? 0 10/13/2023 At any time in the past 12 m [facility], were you homeless or living in a mcc (including now)? No 10/13/2023 Comments No Sex and Gender Information Value Date Recorded Sex Assigned at Female 09/06/2020 12:50 AM CDT Legal Sex Female 10:47 AM CDT Gender Identity Female 09/06/2020 12:50 AM CDT Sexual Orientation Straight 03/18/2018 3: 01 AM COMPUTER INFORMATION SYSTEMS PROFESSOR Last Filed Vital Signs Vital Sign Reading Time Taken Comments Blood Pressure 123/72 10/14/2023 11:02 AM CDT Pulse 64 10/14/2023 11:02 AM CDT Temperature 36.8 ??C (98.3 ??F) 10/13/2023 9:15 PM CD T Respiratory Rate 18 10/14/2023 11:02 AM CDT Oxygen Saturation 97% 10/14/2023 7:55 AM CDT Inhaled Oxygen Concentration - - Weight 119.7 kg (264 lb) 10/13/2023 5:58 PM CDT Height 154.9 cm (5' 1 ) 10/13/2023 5:58 PM CDT Body Mass Index 49.88 10/13/2023 5:58 PM CDT Plan of Treatment Health Maintenance Due Date Last Done Comments ASCVD Statin 1956 Kidney Health Evaluation 1955 Pneumococcal Vaccine: 65+ Years (1 of 2 - PCV) 1962 Diabetes: Retinopathy Eye Exam 1974 Hepatitis C 1974 Mammogram Screening 1996 Zoster Vaccines (1 of 2) 2006 RSV Immunization or 60+ Years (1 - Risk 60-74 years 1-dose series) 2016 Annual Medicare Wellness Visit 2021 COVID-19 Vaccine (2 - season) 2023 06/29/2020 Influenza Adult (#1) 2024 01/17/2023, 01/03/2022, 05/04/2021, Additional history exists Hemoglobin A1C 04/14/2024 10/14/2023, 07/24, 12/25/2022, Additional history exists Lipid Panel 10/13/2024 10/14/2023, 03/26, 09/28/2017, Additional history exists DTaP, Tdap and Td Vaccines (2 - Td or Tdap) 02/22/2026 02/23/2016 Colorectal Cancer Screening Colonoscopy (10 Years) 09/09/2028 09/09/2018 Dexa Scan (General) Completed 08/02/2022, Meningococcal Vaccine Aged Out No princess lencho eligible based on patient's age to complete this topic RSV Immunizations Under 20 Months Aged Out No longer eligible based on patient's age to complete this topic Procedures Procedure Name Priority Date/Time Associated Diagnosis Comments LIPID PANEL Routine 10/14/2023 3:40 AM CDT HEMOGLOBIN, GLYCOSYLATED Routine 10/14/2023 3:40 AM CDT COLONOSCOPY Routine 09/09/2018 11:55 AM CDT from Last 3 Months or Most Recently Relevant to Health Maintenance Results * (ABNORMAL) HEMOGLOBIN, GLYCOSYLATED (10/14/2023 3:40 AM CDT) HGB A1C 8.0(H) <5.7 % 10/14/2023 5:50 AM CDT [facility] Comment: ADA GUIDELINES 2010 5.7 TO 6.4% INCREASED RISK OF DIABETES > OR = 6.5% CONSISTENT WITH DIABETES ESTIMATED AVG GLUCOSE 183 mg/dL 10/14/2023 5:50 AM CDT [facility] 10/14/2023 3:40 AM CDT us Peggy Bland MD LABORATORY Final Result [facility] [address] [place] [address], * LIPID PANEL (10/14/2023 3:40 AM CDT) CHOLESTEROL 164 <200 MG/DL 10/14/2023 4:31 AM CDT [facility] TRIGLYCERIDES 114 <150 MG/DL 10/14/2023 4:31 AM CDT [facility] HDL 46 >40.0 MG/DL 10/14/2023 4:31 AM CDT [facility] LDL (CALCULATED) 95 <100 MG/DL 10/14/19 4:31 AM CDT [facility] NON HDL CHOLESTEROL 118 <130 MG/DL 10/13 4:31 AM T [facility] CHOL/HDL RATIO 3.6 0.0 - 4.5 10/14/2023 4:31 AM CDT [facility] VLDL CALCULATION 23 5 - 55 MG/DL 10/14/2023 4:31 AM CDT [facility] LIPID INTERPRETATION 10/14/2023 4:31 AM CDT [facility] Comment: NIH CONCENSUS REPORT RECOMMENDATIONS: ?ADULT ?CHILD ??LOW RISK: ?CHOLESTEROL ? <200 ? <170 ?TRIGLYCERIDE ?<150 ?--- ?HDL ? >=60 ?--- ?LDL ? <100 ? <110 ??BORDERLINE: ?CHOLESTEROL ? 200-239 ?? 170-199 ?TRIGLYCERIDE ?150-199 ? --- ?HDL ?40-59 ?--- ?LDL ? 100-159 ?? 110-129 ??HIGH RISK: ?CHOLESTEROL ? >=240 ?>=200 ?TRIGLYCERIDE ?>=200 ? --- ?HDL ?<40 ?--- ?LDL ? >=160 ?>=130 10/14/2023 3:40 AM CDT us Peggy Bland MD LABORATORY Final Result [facility] [address] [place] [address], from Last 3 Months or Most Recently Relevant to Health Maintenance Insurance MEDICAID Member Subscriber Plan / Payer (Ef fective 2017-Present) Name:Mohsen Salazar Relation to Subscriber:Self Name:Mohsen Salazar Payer ID:Not on file Group ID:Not on file Type:Not on file Address: [address] Advance Directives * Full Code (Latest Code Status on File) Date Activated Date Inactivated Comments 10/13/2023 8:37 PM 10/14/2023 2:41 PM * Full Code Date Activated Date Inactivated Comments 09/06/2020 12:47 AM 09/07/2020 2:34 PM * Full Code Date Activated Date Inactivated Comments 09/09/2018 4:02 AM 09/11/2018 7:28 PM * Full Code Date Activated Date Inactivated Comments 08/30/2018 9:55 PM 08/31/2018 6:17 PM * Full Code Date Activated Date Inactivated Comments 03/18/2018 2:42 AM 03/18/2018 4:50 PM Care Teams Fire Operations Forester Relationship Specialty Start Date End Date Justen Gale MD [address] [facility] [address] [place] [address] PCP - General FAMILY PRACTICE 08/20/17 Meena Bansal MD [address] [facility] [address] [place] [address] [place] Transit Manager CARDIOVASCULAR DISEASE 04/24/16
--- OUTSIDE RECORDS SUMMARY | 2024-04-26 02:39 | XMS_ITS | Encounter Summary ---
Author Organization [facility] Address [address] [place] [address]. [place] [address] [place] [address] Care Team Providers Care Machinist Apprentice Name Role Phone Meena Bansal MD Unavailable [phone] Justen Gale MD Primary Care Provider [phone] Reason for Visit * Reason Onset Date Comments Follow Up Call 10/18/2023 [facility] 10/12-10/13 Encounter Details Date Type Department Care Team (Latest Contact Info) Description 10/18/2023 Hospital Follow-up Call [facility] [place] [address] Lyubov Alcazar Follow Up Call ([facility]BY 10/12-10/13) Social History Tobacco Use Types Packs/Day Years Used Date Smoking Tobacco: Former Cigarettes 0.3 2 1 05/23/1974 - 03/23/1977 Smokeless Tobacco: Never Alcohol Use Standard Drinks/Week Comments No 0 (1 standard drink = 0.6 oz pur e alcohol) [facility] Utilities Answer Date Recorded In the past 12 months has e electric, gas, oil, or water [employer] threatened to shut off services in your [...] any time in the past 12 m [facility], were you homeless or living in a care home (including now)? No 10/13/2023 Comments No Sex and Gender Information Value Date Recorded Sex Assigned at Female 09/06/2020 12:50 AM CDT Legal Sex Female 10:47 AM CDT Gender Identity Female 09/06/2020 12:50 AM CDT Sexual Orientation Straight 03/18/2018 3: 01 AM DEHAIRING MACHINE TENDER documented as of this encounter Functional Status * Are you deaf or do you have serious difficulty hearing Answer Date of Assessment Author Status No 10/13/2023 9:26 PM CDT Dashawn Naranjo RN Active * Are you blind or do you have serious difficulty seeing, even when wearing glasses? Answer Date of Assessment Author Status No 10/13/2023 9:26 PM Dashawn Calhoun RN Active * Do you have serious difficulty walking or climbing stairs? Answer Date of Assessment Author Status Yes 10/13/2023 9:26 PM Dashawn Calhoun RN Active * Do you have difficulty dressing or bathing? Answer Date of Assessment Author Status Yes 10/13/2023 9:26 PM Dashawn Calhoun RN Active * Because of a physical, mental, or emotional condition, do you have difficulty doing errands alone such as visiting a doctor's office or shopping? Answer Date of Assessment Author Status No 10/13/2023 9:26 PM Dashawn Calhoun RN Active documented as of this encounter Mental Status * Because of a physical, mental, or emotional condition, do you have serious difficulty concentrating, remembering, or making decisions? Answer Entry Date Author Status No 10/13/2023 9:26 PM Dashawn Calhoun RN Active documented in this encounter Plan of Treatment Not on file documented as of this encounter Visit Diagnoses Not on filedocumented in this encounter Care Teams Machinist Apprentice Relationship Specialty Start Date End Date Justen Gale MD [facility] [address] [place] [address] PCP - General FAMILY PRACTICE 08/20/17 Meena Bansal MD [facility] [address] [place] [address] José Luis Resolution Analyst CARDIOVASCULAR DISEASE 04/24/16 documented as of this encounter
--- OUTSIDE RECORDS SUMMARY | 2024-04-26 02:40 | XMS_ITS | Encounter Summary ---
Author Organization [facility] Address [address] [place] [address]. [place] [address] [place] [address] Care Team Providers Care Picker Tender Helper Name Role Phone Meena Bansal MD Unavailable [phone] Justen Gale MD Primary Care Provider [phone] Reason for Visit * Reason Comments Shortness Of Breath Encounter Details Date Type Department Care Team ([facility] st Contact Info) Description 05/15/2021 2:39 PM PLUG ASSEMBLER - 05/15/2021 6:44 PM PLUG ASSEMBLER Emergency [facility] Emergency Room [address] [place], [place] [id number] Shorty Alvarado MD [address] [place] [address] [id number] Shortness Of Breath Discharge Disposition: Home or Self Care (Routine Discharge) Social History Tobacco Use Types Packs/Day Years Used Date Smoking Tobacco: Former Cigarettes 0.3 2 1 05/23/1974 - 03/23/1977 Smokeless Tobacco: Never Alcohol Use Standard Drinks/Week Comments No 0 (1 standard drink = 0.6 oz pur e alcohol) Comments No Sex and Gender Information Value Date Recorded Sex Assigned at Female 09/06/2020 12:50 AM CDT Legal Sex Female 10:47 AM CDT Gender Identity Female 09/06/2020 12:50 AM CDT Sexual Orientation Straight 03/18/2018 3: 01 AM PLUG ASSEMBLER COVID-19 Exposure Response Date Recorded In the last month, have you been in contact with someone who was confirmed or suspected to have Coronavirus / COVID-19? Yes 05/15/2021 2:21 PM PLUG ASSEMBLER documented as of this encounter Last Filed Vital Signs Vital Sign [place] Time Taken Comments Blood Pressure 142/78 05/15/2021 5:00 PM PLUG ASSEMBLER Pulse 92 05/15/2021 5:00 PM PLUG ASSEMBLER Temperature 36.3 ??C (97.4 ??F) 05/15/2021 2:26 PM CS T Respiratory Rate 27 05/15/2021 5:00 PM PLUG ASSEMBLER Oxygen Saturation 99% 05/15/2021 5:00 PM PLUG ASSEMBLER Inhaled Oxygen Concentration - - Weight 128.8 kg (284 lb) 05/15/2021 2:26 PM PLUG ASSEMBLER Height 154.9 cm (5' 1 ) 05/15/2021 2:26 PM PLUG ASSEMBLER Body Mass Index 53.66 05/15/2021 2:26 PM PLUG ASSEMBLER documented in this encounter Functional Status * RETIRED Are you deaf or do you have serious difficulty hearing Answer Date of Assessment Author Status No 09/06/2020 12:55 AM CDT Acti ve * RETIRED Are you blind or do you have serious difficulty seeing, even when wearing glasses? Answer Date of Assessment Author Status No 09/06/2020 12:55 AM CDT Acti ve * Do you have serious difficulty walking or climbing stairs? Answer Date of Assessment Author Status Yes 09/06/2020 12:55 AM CDT Della Tejada RN Active * Do you have difficulty dressing or bathing? Answer Date of Assessment Author Status No 09/06/2020 12:55 AM BRENDANT eDlla Tejada RN Active * Because of a physical, mental, or emotional condition, do you have difficulty doing errands alone such as visiting a doctor's office or shopping? Answer Date of Assessment Author Status Yes 09/06/2020 12:55 AM Della Saez RN Active documented as of this encounter Mental Status * Because of a physical, mental, or emotional condition, do you have serious difficulty concentrating, remembering, or making decisions? Answer Entry Date Author Status No 09/06/2020 12:55 AM Della Saez RN Active documented in this encounter Discharge Instructions * Attachments The following attachments cannot be sent through Care Everywhere. * Shortness of Breath (Dyspnea) Discharge Instructions (Chadian) * Dehydration Discharge Instructions, Adult (Chadian) documented in this encounter Medications at Time of Discharge albuterol sulfate HFA 108 (90 Base) MCG/ACT inhaler Inhale 2 puffs into the lungs every 4 (four) hours as needed for Wheezing or Shortness of breath. 8 g 1 exemestane 25 MG tablet Take 1 tablet by mouth daily with supper. Give with food 3 8 HYDROcodone-acetami nophen (NORCO) 10-325 MG tablet Take 1 tablet by mouth every 6 (six) hours as needed. 1 insulin glargine (LANTUS SOLOSTAR) 100 UNIT/ML injection (PEN) Inject 32 Units into the skin every morning. insulin lispro 100 UNIT/ML injection (VIAL) Inject 28 Units into the skin see administration instructions. 28 units before breakfast. 28 units before lunch. 28 units before dinner. Patient also uses sliding scale: BS>140, add 1 unit for every 15 mg/dl >140 naloxone 4 MG/0.1ML nasal spray 1 spray by Nasal route as needed for Opioid reversal. 2 PULSE OXIMETER, DME, Please use the pulse oximeter when you are short of breath. If your reading is less than 85% after exerting yourself, or less than 90% at rest, please return to the emergency department. If you feel you are in immediate danger, please call 911. 1 Device 1 ROPINIROLE HYDROCHLORIDE 5 MG Tab Take 1 tablet (5 mg total) by mouth nightly at bedtime. 3 8 XARELTO 20 MG Tab tablet Take 1 tablet (20 mg total) by mouth every evening. 1 amitriptyline 25 MG tablet Take 25 mg by mouth nightly at bedtime. 10/13/19 24 aspirin 325 MG tablet Take 1 tablet (325 mg total) by mouth daily. 30 tablet 1 10/13/19 24 dextromethorphan ER 30 MG/5ML liquid Take 5 mLs (30 mg total) by mouth every 12 (twelve) hours as needed (Cough and/or sore throat). 280 mL 1 06/21/20 24 diclofenac EC 75 MG tablet Take 1 tablet (75 mg total) by mouth 2 (two) times daily as needed (Pain. Please take with meals). 30 tablet 1 10/13/19 24 famotidine 20 MG tablet Take 1 tablet (20 mg total) by mouth 2 (two) times daily. 60 tablet 1 10/13/19 24 lisinopril 20 MG tablet Take 20 mg by mouth daily. 10/13/19 24 mirabegron ER (MYRBETRIQ) 25 MG 24 hr tablet Take 1 tablet (25 mg total) by mouth daily. 30 tablet 1 10/13/19 24 ondansetron 4 MG disintegrating tablet Take 1 tablet (4 mg total) by mouth every 4 (four) hours as needed for Nausea. 20 tablet 1 07/20/19 22 oxybutynin 5 MG tablet Take 5 mg by mouth 2 (two) times daily. 10/13/19 24 sucralfate 1 G tablet Take 1 tablet (1 g total) by mouth 4 (four) times daily. 120 tablet 10/13/19 24 documented as of this encounter ED Notes * Ricarda Doshi RN - 05/15/2021 6:15 PM CST Provider discussed today's findings with the patient/family. The patient has been given informationregarding their treatment, follow up and concerning symptoms for which they should seek urgent or emergent attention. I have expressed the the importance of seeking attention should there be any new,or worsening symptoms or persistence of their condition. Patient verbalized understanding of the discharge instructions. ASSEMBLER * Shorty Alvarado MD - 05/15/2021 3:32 PM CST Chief Complaint Chief Complaint Patient presents with ??? Shortness Of Breath History of Present Illness This patient is a 65yo female with PMH HTN, DM, DVT on xarelto who presents to the ED for evaluation of dyspnea. She reports receiving her COVID booster and influenza vaccine 05/04. Soon thereafter, she developed dyspnea. No fever/chills, cough. She denies chest pain but states that her chest feels unusual. No family history of CAD. Medical History ALLERGIES: Allergies Allergen Reactions ??? Ativan [Lorazepam] Hyperactive Aggrevates restless leg syndrome ??? Cephalosporins Anaphylaxis ??? Rocephin [Ceftriaxone] Shortness of Breath ??? Levofloxacin Hives ??? Oxycodone Vomiting ??? Reglan [Metoclopramide] Hyperactive ??? Trazodone Other (see comment) Shaky, restlessness, itching, throat swelling MEDICATIONS: Prior to Admission medications Medication Sig Start Date End Date Taking? Authorizing Provider albuterol sulfate HFA 108 (90 Base) MCG/ACT inhaler Inhale 2 puffs into the lungs every 4 (four) hours as needed for Wheezing or Shortness of breath. 04/19/21 Jaswinder Gaytan MD amitriptyline 25 MG tablet Take 25 mg by mouth nightly at bedtime. Doc Abstract aspirin 325 MG tablet Take 1 tablet (325 mg total) by mouth daily. 04/19/21 Jaswinder Gaytan MD dextromethorphan ER 30 MG/5ML liquid Take 5 mLs (30 mg total) by mouth every 12 (twelve) hours as needed (Cough and/or sore throat). 04/19/21 Jaswinder Gaytan MD diclofenac EC 75 MG tablet Take 1 tablet (75 mg total) by mouth 2 (two) times daily as needed (Pain. Please take with meals). 04/19/21 Jaswinder Gaytan MD exemestane 25 MG tablet Take 25 mg by mouth daily with supper. Give with food 08/09/17 Doc Abstract famotidine 20 MG tablet Take 1 tablet (20 mg total) by mouth 2 (two) times daily. 03/03/21 Jaswinder Mahmood MD HYDROcodone-acetaminophen 7.5-325 MG tablet Take 1 tablet by mouth every 6 (six) hours as needed. 06/27/20 Doc Abstract insulin glargine (LANTUS SOLOSTAR) 100 UNIT/ML injection (PEN) Inject 50 Units into the skin every morning. Doc Abstract insulin lispro 100 UNIT/ML injection (VIAL) Inject 20-22 Units into the skin see administration instructions. 20 units before breakfast. 20 units before lunch. 22 units before dinner. Patient also uses sliding scale: BS>140, add 1 unit for every 15 mg/dl >140 lisinopril 20 MG tablet Take 20 mg by mouth daily. Doc Abstract mirabegron ER (MYRBETRIQ) 25 MG 24 hr tablet Take 1 tablet (25 mg total) by mouth daily. 09/07/20 Kerrie Leonard PA-C ondansetron 4 MG disintegrating tablet Take 1 tablet (4 mg total) by mouth every 4 (four) hours as needed for Nausea. 04/19/21 Jaswinder Gaytan MD oxybutynin 5 MG tablet Take 5 mg by mouth 2 (two) times daily. Doc Abstract PULSE OXIMETER, DME, Please use the pulse oximeter when you are short of breath. If your reading isless than 85% after exerting yourself, or less than 90% at rest, please return to the emergency department. If you feel you are in immediate danger, please call 911. 04/19/21 Jaswinder Gaytan MD ROPINIROLE HYDROCHLORIDE 5 MG Tab Take 5 mg by mouth nightly at bedtime. 07/14/17 Doc Abstract sucralfate 1 G tablet Take 1 tablet (1 g total) by mouth 4 (four) times daily. 03/03/21 Jaswinder Gaytan MD XARELTO 20 MG Tab tablet Take 20 mg by mouth every evening. 07/17/20 Doc Abstract PAST MEDICAL HISTORY: Past Medical History: Diagnosis Date ??? Arthritis ??? Back pain ??? Blood clot in vein ??? Breast cancer (CMS/HCC) ??? Cancer (CMS/HCC) ??? Diabetes mellitus (CMS/HCC) ??? Disease of thyroid gland ??? DVT (deep venous thrombosis) (CMS/HCC) ??? Hypertension ??? Kidney stones ??? Neuropathy ??? PE (pulmonary thromboembolism) (CMS/HCC) ??? Restless leg syndrome ??? Spinal headache Has Bulging disc in lower back and Neck PAST SURGICAL HISTORY: Past Surgical History: Procedure Laterality Date ??? SECTION ??? CHOLECYSTECTOMY ??? COLONOSCOPY/EGD 09/10/2018 dr mcmullen - normal EGD - moderate diverticulosis - mild hemorrhoid ??? HERNIA REPAIR ??? MASTECTOMY ??? TOTAL KNEE ARTHROPLASTY FAMILY HISTORY: Family History Problem Relation Name Age of Onset ??? Aneurysm Mother ??? Diabetes Mother ??? Heart Disease Mother ??? Hyperlipidemia Mother ??? Hypertension Mother ??? Stroke Mother ??? Cancer Father ??? Cancer Sister ??? COPD Sister ??? Depression Sister ??? Cancer Brother SOCIAL HISTORY: Social History Tobacco Use ??? Smoking status: Former Smoker Packs/day: 0.25 Years: 2.00 Pack years: 0.50 Types: Cigarettes Quit date: 03/23/1977 Years since quittin.1 ??? Smokeless tobacco: Never Used Substance Use Topics ??? Alcohol use: No ??? Drug use: No Review of Systems Review of Systems Constitutional: Negative. HENT: Negative. Respiratory: Positive for shortness of breath. Negative for cough. Cardiovascular: Negative. Gastrointestinal: Negative. Musculoskeletal: Negative. Skin: Negative. Neurological: Negative. All other systems reviewed and are negative. Physical Exam Filed Vitals: 05/15/21 1530 05/15/21 1545 05/15/21 1615 05/15/21 1700 BP: (!) 158/101 142/83 142/78 Pulse: 85 98 76 92 Resp: 16 19 21 27 Temp: SpO2: 100% 100% 97% 99% Weight: Height: Physical Exam Vitals and nursing note reviewed. Constitutional: Appearance: Normal appearance. She is well-developed. HENT: Head: Normocephalic and atraumatic. Nose: Nose normal. Mouth/Throat: Mouth: Mucous membranes are moist. Eyes: Conjunctiva/sclera: Conjunctivae normal. Pupils: Pupils are equal, round, and reactive to light. Neck: Vascular: No JVD. Trachea: No tracheal deviation. Cardiovascular: Rate and Rhythm: Normal rate and regular rhythm. Heart sounds: Normal heart sounds. Comments: Intermittent mild tachycardia Pulmonary: Breath sounds: Normal breath sounds. Comments: Intermittent tachypnea. Abdominal: General: There is no distension. Palpations: Abdomen is soft. There is no mass. Tenderness: There is no abdominal tenderness. There is no guarding or rebound. Musculoskeletal: General: Normal range of motion. Cervical back: Normal range of motion and neck supple. Lymphadenopathy: Cervical: No cervical adenopathy. Skin: General: Skin is warm and dry. Capillary Refill: Capillary refill takes less than 2 seconds. Neurological: General: No focal deficit present. Mental Status: She is alert and oriented to person, place, and time. Sensory: No sensory deficit. Motor: No weakness. Diagnostic Studies / Procedures ELECTROCARDIOGRAMS: I have interpreted the patient's EKG timed 14:52 as NSR at rate of [address]/T changes. No significant change compared with previous. Results for orders placed or performed during the hospital encounter of 05/15/21 ECG [address] [address] [facility] Test Date: 2021-05-15 Pat Name: MOHSEN MARQUES Department: Room: [facility] Gender: Female Certified Flex Endoscope Reprocessor: ANKIT : [id number] Requested By: JOANN CASILLAS Order Number: [id number] [place] MD: Ramon Byrd Measurements Intervals [place] Rate: 93 P: 2 CT: 154 QRS: -11 QRSD: 94 T: 49 QT: 347 QTc: 432 Interpretive Statements SINUS RHYTHM Compared to ECG 04/19/2021 20:23:34 No significant changes ASSEMBLER LABORATORY STUDIES: Results for orders placed or performed during the hospital encounter of 05/15/21 CBC W/DIFF AUTOMATED Result Value Ref Range WBC 10.5 4.5 - 11.0 x10'3/uL RBC 4.91 4.20 - 5.40 x10'6/uL HGB 14.0 12.0 - 16.0 G/DL HCT 44.6 38.0 - 48.0 % MCV 90.8 81.0 - 99.0 FL MCH 28.5 27.0 - 31.0 PG MCHC 31.4 (L) 32.0 - 36.0 G/DL RDW 13.8 11.5 - 14.5 % PLT 299 130 - 400 x10'3/uL MPV 9.8 9.3 - 12.2 FL DIFFERENTIAL TYPE AUTOMATED DIFFERENTIAL NEUTROPHILS 64.5 % LYMPHOCYTES 24.8 % MONOCYTES 7.2 % EOSINOPHILS 2.7 % BASOPHILS 0.4 % IMMATURE GRANS 0.4 % ABS. NEUTROPHILS TOTAL 6.76 1.80 - 7.70 x10'3/uL ABS. LYMPHOCYTES 2.60 1.00 - 4.80 x10'3/uL ABS. MONOCYTES 0.75 0.24 - 0.86 x10'3/uL ABS. EOSINOPHILS 0.28 0.04 - 0.36 x10'3/uL ABS. BASOPHILS 0.04 0.01 - 0.08 x10'3/uL ABS. IMMATURE GRANULOCYTES 0.04 0.00 - 0.49 x10'3/uL COMPREHENSIVE METABOLIC PANEL Result Value Ref Range GLUCOSE 171 (H) 70 - 99 MG/DL BUN 18 7 - 18 MG/DL CREATININE S/P/B 0.78 0.55 - 1.02 MG/DL SODIUM 136 136 - 145 MMOL/L POTASSIUM 4.0 3.5 - 5.1 MMOL/L CHLORIDE S/P/B 104 100 - 108 MMOL/L CO2 29.8 21 - 32 MMOL/L CALCIUM 9.7 8.5 - 10.1 MG/DL BILIRUBIN TOTAL S/P/B 0.4 0.2 - 1.2 MG/DL TOTAL PROTEIN S/P/B 8.8 (H) 6.4 - 8.2 G/DL ALBUMIN S/P/B 3.3 (L) 3.4 - 5.0 G/DL AST 20 15 - 37 U/L ALT 25 14 - 55 U/L ALKALINE PHOSPHATASE S/P/B 78 50 - 136 U/L ANION GAP 2.2 (L) 5 - 15 MMOL/L BUN CREATININE RATIO 23.1 6 - 26 A/G RATIO 0.6 (L) 1.0 - 2.0 RATIO eGFR Non-Afr. Amer. 80 (L) >90 ML/MIN/1.73 M2 eGFR Afr. Amer. >90 >90 ML/MIN/1.73 M2 TROPONIN, QUANT Result Value Ref Range TROPONIN I HIGH SENSITIVITY 7 <54 ng/L PRO-BRAIN NATRIURETIC PEPTIDE Result Value Ref Range Pro-B TYPE NATRIURETIC PEPTIDE 39 <125 PG/ML IMAGING STUDIES XR CHEST PORTABLE Final Result by User, [id number] (05/15 1511) Examination: Chest 1 view portable History: Shortness of breath DATE/TIME: 05/15/2021 2:51 PM Comparison: April 19, 2021 Technique: AP upright portable view of the chest was obtained. Findings: In size and mediastinal contours are normal. Pulmonary vasculature upper limits of normal. No pulmonary consolidation, pleural effusion or pneumothorax. No acute osseous abnormality. Impression: No acute infiltrate. Pulmonary vasculature upper limits of normal. Referred By: Interpreted By: Osiel Vergara MD, 05/15/2021 3:10 PM ED Course / Medical Decision Making The patient appears well. Diagnostic studies are reassuring. She ambulated on pulse oximetry and did not desaturate below 97%. HR alyce to 113bpm, and she subjectively felt short of breath. Her lungs remain clear. She reports poor fluid intake, in general, and dark urine. I suspect she is actually mildly volume depleted. We provided a small fluid bolus and will discharge home with plan for outpatient followup early next week. Clinical Impression Dyspnea (Primary) Dehydration Disposition: Discharge Shorty Alvarado MD 05/16/21828 Shorty Alvarado MD 05/16/21828 ASSEMBLER ASSEMBLER * HUMAIRA Holder - 05/15/2021 2:35 PM CST [place], [place] EMERGENCY DEPARTMENT ENCOUNTER Medical Screening Examination Chief Complaint : Shortness Of Breath HPI : Mohsen Marques is a 65-year-old female who presents *worsening shortness of breath since the end of March, COVID-positive April 19, did receive COVID vaccine and flu shot on that 11th of this month, worsening shortness of breath since then. On Xarelto for history of clots Vital Signs: Filed Vitals: 05/15/21 1426 BP: (!) 152/95 Pulse: 105 Resp: 20 Temp: 97.4 ??F (36.3 ??C) SpO2: 99% Weight: 128.8 kg (284 lb) Height: 5' 1 (1.549 m) Physical exam: A brief physical exam was completed to facilitate/expedite patient care. Mitchell findings include: *Tachypneic with mild exertion, tachycardic Plan: Labs & Imaging was ordered to facilitate patient care. HUMAIRA Holder 05/15/21 1435 Cosigned by Shorty Alvarado MD at 05/15/2021 3:08 PM PLUG ASSEMBLER ASSEMBLER ASSEMBLER * Opal Cantrell RN - 05/15/2021 2:30 PM CST Pt reports worsening SOB since having COVID on 04/19, received her booster on 05/03. Now having painunder right ribs, on Xarelto for hx of DVT/PE. ASSEMBLER documented in this encounter Plan of Treatment Not on file documented as of this encounter Procedures Procedure Name Priority Date/Time Associated Diagnosis Comments XR CHEST PORTABLE STAT 05/15/2021 3:1 0 PM PLUG ASSEMBLER PRO-BRAIN NATRIURETIC PEPTIDE STAT 05/15/2021 3:06 PM PLUG ASSEMBLER COMPREHENSIVE METABOLIC PANEL STAT 05/15/2021 3:06 PM PLUG ASSEMBLER CBC W/DIFF AUTOMATED STAT 05/15/2021 3:06 PM PLUG ASSEMBLER TROPONIN, QUANT STAT 05/15/2021 3:06 PM PLUG ASSEMBLER ECG 12-LEAD Routine 05/15/2021 2:52 PM PLUG ASSEMBLER documented in this encounter Results * XR CHEST PORTABLE (05/15/2021 3:10 PM PLUG ASSEMBLER) Anatomical Region Laterality Modality Chest Radiographic Lizeth ging 05/15/2021 3:10 PM PLUG ASSEMBLER Impressions 05/15/2021 3:11 PM PLUG ASSEMBLER Impression: No acute infiltrate. ??Pulmonary vasculature upper limits of normal. Referred By: ?? Interpreted By: Osiel Vergara MD, 05/15/2021 3:10 PM Narrative 05/15/2021 3:11 PM PLUG ASSEMBLER Examination: Chest 1 view portable History: Shortness of breath DATE/TIME: 05/15/2021 2:51 PM Comparison: April 19, 2021 Technique: AP upright portable view of the chest was obtained. Findings: In size and mediastinal contours are normal. ??Pulmonary vasculature upper limits of normal. ??No pulmonary consolidation, pleural effusion or pneumothorax. ??No acute osseous abnormality. Procedure Note Osiel Vergara MD - 05/15/2021 Examination: Chest 1 view portable History: Shortness of breath DATE/TIME: 05/15/2021 2:51 PM Comparison: April 19, 2021 Technique: AP upright portable view of the chest was obtained. Findings: In size and mediastinal contours are normal. Pulmonaryvasculature upper limits of normal. No pulmonary consolidation, pleuraleffusion or pneumothorax. No acute osseous abnormality. Impression: No acute infiltrate. Pulmonary vasculature upper limits ofnormal. Referred By: Interpreted By: Osiel Vergara MD, 05/15/2021 3:10 PM Joann Casillas [facility] Final Resul t * PRO-BRAIN NATRIURETIC PEPTIDE (05/15/2021 3:06 PM PLUG ASSEMBLER) PRO-B TYPE NATRIURETIC PEPTIDE 39 <125 PG/ML 05/15/2021 3:42 PM PLUG ASSEMBLER [facility] Comment: CUT POINTS ESTABLISHED BY [employer] ON NT PROBNP (ICON) STUDY (2006). AGE INDEPENDENT: <300 PG/ML HAS A 99% NEGATIVE PREDICTIVE VALUE FOR EXCLUDING ACUTE CHF <50 YEARS: >450 PG/ML IS CONSISTENT WITH ACUTE CHF 50-75 YEARS: >900 PG/ML IS CONSISTENT WITH ACUTE CHF >75 YEARS: >1800 PG/ML IS CONSISTENT WITH ACUTE CHF IN PATIENTS WITH RENAL INSUFFICIENCY (GFR <60), >1200 PG/ML YIELDS A DIAGNOSTIC SENSITIVITY AND SPECIFICITY OF 89% AND 72% FOR ACUTE CHF. 05/15/2021 3:06 PM PLUG ASSEMBLER Joann Casillas [facility] Final Resul t [facility] [address] [place] [address], [place] [phone] * TROPONIN, QUANT (05/15/2021 3:06 PM PLUG ASSEMBLER) Pathologist [facility] TROPONIN I HIGH SENSITIVITY 7 <54 ng/L 05/15/2021 3:42 PM PLUG ASSEMBLER [facility] Comment: HIGH DOSES OF BIOTIN, TROPONIN-SPECIFIC AUTOANTIBODIES, AND ANTIBODY THERAPY CONTAINING HAMA MAY INTERFERE WITH THIS TEST RESULT. CORRELATION TO CLINICAL HISTORY AND PRESENTATION RECOMMENDED. 05/15/2021 3:06 PM PLUG ASSEMBLER Joann Casillas [facility] Final Resul t [facility] [address] [place] [id number], * (ABNORMAL) COMPREHENSIVE METABOLIC PANEL (05/15/2021 3:06 PM PLUG ASSEMBLER) [facility] GLUCOSE 171(H) 70 - 99 MG/DL 05/15/2021 3:42 PM PLUG ASSEMBLER [facility] BUN 18 7 - 18 MG/DL 05/15/2021 3:42 PM [facility] CREATININE S/P/B 0.78 0.55 - 1.02 MG/DL 05/15/2021 3:42 PM PLUG ASSEMBLER [facility] SODIUM S/P/B 136 136 - 145 MMOL/L 05/15/2021 3:42 PM PLUG ASSEMBLER [facility] POTASSIUM S/P/B 4.0 3.5 - 5.1 MMOL/L 05/15/2021 3:42 PM [facility] CHLORIDE S/P/B 104 100 - 108 MMOL/L 05/15/2021 3:42 PM PLUG ASSEMBLER [facility] CO2 29.8 21 - 32 MMOL/L 05/15/2021 3:42 PM [facility] CALCIUM S/P/B 9.7 8.5 - 10.1 MG/DL 05/15/2021 3:42 PM [facility] BILIRUBIN TOTAL S/P/B 0.4 0.2 - 1.2 MG/DL 05/15/2021 3:42 PM [facility] Comment: THIS ASSAY IS NOT RECOMMENDED FOR PATIENTS UNDERGOING TREATMENT WITH ELTROMBOPAG DUE TO THE POTENTIAL FOR FALSELY ELEVATED RESULTS. TOTAL PROTEIN S/P/B 8.8(H) 6.4 - 8.2 G/DL 05/15/2021 3:42 PM [facility] ALBUMIN S/P/B 3.3(L) 3.4 - 5.0 G/DL 05/15/2021 3:42 PM [facility] AST 20 15 - 37 U/L 05/15/2021 3:42 PM [facility] ALT 25 14 - 55 U/L 05/15/2021 3:42 PM [facility] ALKALINE PHOSPHATASE S/P/B 78 50 - 136 U/L 05/15/2021 3:42 PM [facility] ANION GAP 2.2(L) 5 - 15 MMOL/L 05/15/2021 3:42 PM [facility] BUN CREATININE RATIO 23.1 6 - 26 05/15/2021 3:42 PM [facility] A/G RATIO 0.6(L) 1.0 - 2.0 RATIO 05/15/2021 3:42 PM [facility] EGFR NON-AFR. AMER. 80(L) >90 ML/MIN/1.7 3 M2 05/15/2021 3:42 PM [facility] EGFR AFR. AMER. >90 >90 ML/MIN/1.7 3 M2 05/15/2021 3:42 PM PLUG ASSEMBLER [facility] Comment: NOTE: eGFR is not calculated for patients <18 years of age. This is an estimated GFR (CKD EPI) and should not be used for calculating drug doses. 05/15/2021 3:06 PM PLUG ASSEMBLER Joann Casillas [facility] Final Resul t [facility] [address] [place] [address], [place] [phone] * (ABNORMAL) CBC W/DIFF AUTOMATED (05/15/2021 3:06 PM PLUG ASSEMBLER) WBC 10.5 4.5 - 11.0 x10'3/uL 05/15/2021 3:20 PM PLUG ASSEMBLER [facility] RBC 4.91 4.20 - 5.40 x10'6/uL 05/15/2021 3:20 PM PLUG ASSEMBLER [facility] HGB 14.0 12.0 - 16.0 G/DL 05/15/2021 3:20 PM [facility] HCT 44.6 38.0 - 48.0 % 05/15/2021 3:20 PM [facility] MCV 90.8 81.0 - 99.0 FL 05/15/2021 3:20 PM PLUG ASSEMBLER [facility] MCH 28.5 27.0 - 31.0 PG 05/15/2021 3:20 PM PLUG ASSEMBLER [facility] MCHC 31.4(L) 32.0 - 36.0 G/DL 05/15/2021 3:20 PM [facility] RDW 13.8 11.5 - 14.5 % 05/15/2021 3:20 PM [facility] PLT 299 130 - 400 x10'3/uL 05/15/2021 3:20 PM [facility] MPV 9.8 9.3 - 12.2 FL 05/15/2021 3:20 PM [facility] DIFFERENTIAL TYPE AUTOMATED DIFFERENTIAL 05/15/2021 3:20 PM [facility] NEUTROPHILS % 64.5 % 05/15/2021 3:20 PM [facility] LYMPHOCYTES % 24.8 % 05/15/2021 3:20 PM [facility] MONOCYTES % 7.2 % 05/15/2021 3:20 PM [facility] EOSINOPHILS 2.7 % 05/15/2021 3:20 PM [facility] BASOPHILS 0.4 % 05/15/2021 3:20 PM [facility] IMMATURE GRANS % 0.4 % 05/15/19 3:20 PM [facility] ABS. NEUTROPHILS TOTAL 6.76 1.80 - 7.70 x10'3/uL 05/15/2021 3:20 PM [facility] ABS. LYMPHOCYTES 2.60 1.00 - 4.80 x10'3/uL 05/15/2021 3:20 PM [facility] ABS. MONOCYTES 0.75 0.24 - 0.86 x10'3/uL 05/15/2021 3:20 PM [facility] ABS. EOSINOPHILS 0.28 0.04 - 0.36 x10'3/uL 05/15/2021 3:20 PM [facility] ABS. BASOPHILS 0.04 0.01 - 0.08 x10'3/uL 05/15/2021 3:20 PM [facility] ABS. 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 [address] [facility], [facility] ? Test Date: ?2021-05-15 Pat Name: ? MOHSEN MARQUES ?Department: ? Room: ? EXAM10 Gender: ? Female ? Certified Flex Endoscope Reprocessor: ?? : ?[id number] ? Requested By: JOANN CASILLAS Order Number: [id number] ? Reading : ?? Ramon Byrd ? Measurements Intervals ?[place] ? Rate: ? 93 ? P: ?2 CT: ? 154 ?QRS: ?-11 QRSD: ? 94 ? T: ?49 QT: ? 347 ? QTc: ?432 ? Interpretive Statements SINUS RHYTHM Compared to ECG 04/19/2021 20:23:34 No significant changes ASSEMBLER Procedure Note Ramon Byrd MD - 05/15/2021 [facility] [address] [facility] Juan Ramon [place] Test Date: 2021-05-15 Pat Name: MOHSEN MARQUES Department: Room: [facility] Gender: Female Certified Flex Endoscope Reprocessor: : [id number] Requested By: JOANN CASILLAS Order Number: [id number] Reading MD: Ramon Byrd Measurements Intervals [place] Rate: 93 P: 2 CT: 154 QRS: -11 QRSD: 94 T: 49 QT: 347 QTc: 432 Interpretive Statements SINUS RHYTHM Compared to ECG 04/19/2021 20:23:34 No significant changes ASSEMBLER Joann Casillas CONDUCTOR SYMPHONIC ORCHESTRA ECG ORDERABLES Final Resul t [facility] documented in this encounter Visit Diagnoses Diagnosis Dyspnea- Primary Other dyspnea and respiratory abnormality Dehydration documented in this encounter Administered Medications Inactive Administered Medications - up to 3 most recent administrations Medication Order MAR Action Action Date Dose Rate Site sodium chloride 0.9% bolus infusion SOLN 1,000 mL 1,000 mL, Intravenous, Administer over 15 Minutes, Once, 1 dose, On 05/15/21 at 1615 New Bag 05/15/2021 4:11 PM PLUG ASSEMBLER 1,000 mLs documented in this encounter Active and Recently Administered Medications Times are shown in PLUG ASSEMBLER. Scheduled Medication Order 05/13/2021 05/14/2021 05/15/2021 sodium chloride 0.9% bolus infusion SOLN 1,000 mL (COMPLETED) 1,000 mL, Intravenous, Administer over 15 Minutes, Once, 1 dose, On 05/15/21 at 1615 1611 (New Bag - Prov ider: Ricarda Doshi RN)1815 (Infusion Stop Time - Provider: Ricarda Doshi RN) documented in this encounter Care Teams Picker Tender Helper Relationship Specialty Start Date End Date Justen Gale MD [address] [place] [address] PCP - General FAMILY PRACTICE 08/20/17 Meena Bansal MD [address] [place] [address] José Luis Media Reporter CARDIOVASCULAR DISEASE 04/24/16 documented as of this encounter
--- OUTSIDE RECORDS SUMMARY | 2024-04-26 02:40 | XMS_ITS | Encounter Summary ---
Author Organization [facility] Address [address] [place] [address]. 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 Yes 04/19/2021 8:07 PM 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 documented as of this encounter Functional Status * RETIRED Are [...] Author Status No 09/06/2020 12:55 AM CDT Della Tejada RN Active * Because of a physical, mental, or emotional condition, do you have difficulty doing errands alone such as visiting a doctor's office or shopping? Answer Date of Assessment Author Status Yes 09/06/2020 12:55 AM CDT Della Tejada RN Active documented as of this encounter Mental Status * Because of a physical, mental, or emotional condition, do you have serious difficulty concentrating, remembering, or making decisions? Answer Entry Date Author Status No 09/06/2020 12:55 AM Della Saez RN Active documented in this encounter Plan of Treatment Not on file documented as of this encounter Visit Diagnoses Not on filedocumented in this encounter Additional Health Concerns Infection Onset Date Last Indicated Resolved Time COVID-19 Rule Out 04/19/2021 04/19/2021 04/19/2021 10:15 PM 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 COVID-19 Confirmed 04/19/2021 04/19/2021 12:32 AM 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 documented as of this encounter Care Teams Building Carpenter Helper Relationship Specialty Start Date End Date Justen Gale MD [address] [place] [address] PCP - General FAMILY PRACTICE 08/20/17 Meena Bansal MD [address] [place] [address] [place] Dog Races Manager CARDIOVASCULAR DISEASE 04/24/16 documented as of this encounter
--- OUTSIDE RECORDS SUMMARY | 2024-04-26 02:40 | XMS_ITS | Encounter Summary ---
Author Organization [facility] Address [address] [place] [address]. 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 No / Unsure 10/26/2021 7:00 PM CDT documented as of this encounter Functional [...] 09/06/2020 12:55 AM Della Saez RN Active * Do you have difficulty dressing or bathing? Answer Date of Assessment Author Status No 09/06/2020 12:55 AM Della Saez RN Active * Because of a physical, [...] on filedocumented in this encounter Care Teams Community Engagement Specialist Relationship Specialty Start Date End Date Justen Gale MD [id number] [place] [address] PCP - General FAMILY PRACTICE 08/20/17 Meena Bansal MD [facility] [address] [place] [address] [place] Gyroscopic Engineering Technician CARDIOVASCULAR DISEASE 04/24/16 documented as of this encounter
--- OUTSIDE RECORDS SUMMARY | 2024-04-26 02:40 | XMS_ITS | Encounter Summary ---
Author Organization [facility] Address [address] [place] [address]. [place] [address] [place] [address] Care Team Providers [employer] Architect Name Role Phone Meena Bansal MD Unavailable [phone] Gerardo Gale MD Primary Care Provider [phone] Reason for Visit * Reason Comments Abdominal Pain Vomiting Fatigue Encounter Details Date Type Department Care Team (Late st Contact Info) Description 07/19/2021 1:52 PM CDT - 07/19/2021 5:[address] 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 No / Unsure 07/19/2021 12:37 PM CDT documented as of this encounter Last Filed Vital Signs Vital Sign Reading Time Taken Comments Blood Pressure 157/91 07/19/2021 5:31 PM CDT Pulse 84 07/19/2021 5:31 PM CDT Temperature 36.4 ??C (97.5 ??F) 07/19/2021 12:55 PM C DT Respiratory Rate 18 07/19/2021 5:31 PM CDT Oxygen Saturation 100% 07/19/2021 12:55 PM CDT Inhaled Oxygen Concentration - - Weight 128.4 kg (283 lb) 07/19/2021 12:55 PM CDT Height 154.9 cm (5' 1 ) 07/19/2021 12:55 PM CDT Body Mass Index 53.47 07/19/2021 12:55 PM CDT documented in this encounter Functional Status * [...] Date Author Status No 09/06/2020 12:55 AM CDT Della Tejada RN Active documented in this encounter Discharge Instructions * Discharge Instructions* Bonnie Martinez APRN - 07/19/2021 5:20 PM CDT Take zofran as needed Otc cold and flu as we discussed Gzero and water to stay hydrated. SEE PCP this week. You should contact your primary doctor to follow up on your blood pressure, uncontrolled blood pressure can be dangerous even deadly. Vomiting and diarrhea are caused by germs (virus or bacteria) that infect the intestines (guts). The intestines don??t work well, causing fluid to back-up (vomiting) and leak into the intestines (diarrhea). People call this ``stomach flu? when it is caused by a virus (such as rotavirus and norovirus). Diarrhea can also be caused by bacteria, such as salmonella, or by parasites. Food poisoning and medicines can cause diarrhea and vomiting. Antibiotics (medications that kill bacteria) do not kill viruses. Antibiotics can make the diarrhea worse. Vomiting medicines can be used, but national pediatric organizations currently do not recommend medicine for diarrhea. Home Care: 1. Give fluids to prevent dehydration. 2. Infants can be fed breast milk, electrolyte solution (Pedialyte and other brands), and formula. Special formulas for diarrhea can be tried. Cereal and low-fat baby foods can be given to older infants. 3. Older children can be on a low-fat diet with increases in fluids, such as sports drinks, gelatin, and low-fat soups, to prevent dehydration. 4. Other suggestions include chicken noodle soup, ramen, rice, bread, crackers, cereal, yogurt, bananas, and applesauce. 5. High-sugar foods and drinks (soda and juice) can worsen diarrhea. Fatty and fried foods can worsen diarrhea. 6. Do not give plain water by itself, but it is OK if given with other foods that have some salt and sugar. For vomiting: The pinzon is to give small amounts at a time. Because the stomach is upset, it will vomit when it fills. Prevent this by giving only 1 inch (3 cm) in a cup at a time. Wait 10 to 15 minutes then give another small amount. This will keep the stomach empty, so the child is less likely to vomit. If your child does not vomit after this, you can slowly increase the amount in the cup each time. Medicines to stop vomiting can help. Clear liquids for first meal, if tolerated may advance to full liquid or light meal. See your doctor for a recheck visit tomorrow or as soon as possible. Call your doctor or return to the emergency department if worse or: 1. Fever (temperature greater than 102??F [39??C]) occurs. 2. There is blood in the stool (poop) or diarrhea or if the stool (poop) is black. 3. Lots of diarrhea occurs. 4. Lots of vomiting occurs or the vomit is bloody or green or looks like chocolate or coffee. 5. The belly looks very full or big. 6. Symptoms of dehydration occurs (eg, inside of the mouth looks sticky, urinating less, weakness, tiredness, pale color, eyes look hollow or sunken). 7. Abdominal pain is worse. Immediately return to the emergency department for any new or worsening symptoms. Return to the emergency room if you have new or worsening chest pain, shortness of breath, back/arm/neck pain, cough up blood, have a fever above 100.4F, have pain or swelling in your legs, feel lightheaded, faint/pass out. Follow up in 2-3 days with your primary care provider, or if symptoms worsen go to [facility] or the ER. Our practice is committed to providing you the very best in healthcare. We want to hear from you! You will get a satisfaction survey and I sincerely hope that we met or exceeded your expectations.Your feedback is anonymous & helps us improve the patient experience for you and others in the community we serve. It is our pleasure to have the opportunity to take care of you. * Attachments The following attachments cannot be sent through Care Everywhere. * Viral Gastroenteritis Discharge Instructions, Adult ([place]) * Viral Syndrome Discharge Instructions ([place]) * High Blood Pressure and ([place]) documented in this encounter Medications at Time [...] route as needed for Opioid reversal. 2 ondansetron 4 MG disintegrating tablet Take 1 tablet (4 mg total) by mouth every 8 (eight) hours as needed for Nausea. 20 tablet 2 PULSE OXIMETER, DME, Please use the [...] (Cough and/or sore throat). 280 mL 1 10/13/19 24 diclofenac EC 75 MG tablet Take [...] mg total) by mouth daily. 30 tablet 10/13/19 24 oxybutynin 5 MG tablet Take 5 mg by mouth 2 (two) times daily. 10/13/19 24 sucralfate 1 G tablet Take 1 tablet (1 g total) by mouth 4 (four) times daily. 120 tablet 1 10/13/19 24 documented as of this encounter ED Notes * Astrid Gordon RN - 07/19/2021 5:34 PM CDT Provider discussed today's findings with the patient/family. The patient has been given informationregarding their treatment, follow up and concerning symptoms for which they should seek urgent or emergent attention. I have expressed the the importance of seeking attention should there be any new,or worsening symptoms or persistence of their condition. Patient verbalized understanding of the discharge instructions. * Bonnie Martinez APRN - 07/19/2021 4:53 PM CDTAssociated Order(s): EKG Reading [facility] EMERGENCY DEPARTMENT NOTE Chief Complaint Chief Complaint Patient presents with ??? Abdominal Pain ??? Vomiting ??? Fatigue History of Present Illness Patient is a pleasant 66-year-old female with past medical history breast cancer, neuropathy, hypertension, RLS, diabetes, kidney stones, arthritis, disease of thyroid gland, who presents emergency department today by private vehicle evaluation of generalized feeling short of breath, vomiting, fatigue, chills, and abdominal pain for the last 2 days. Patient states she has had no diarrhea. Denies any fever. Denies any urinary symptoms. She denies any chest pain. Medical History ALLERGIES: Allergies Allergen Reactions ??? Ativan [Lorazepam] Hyperactive Aggrevates restless leg syndrome ??? Cephalosporins Anaphylaxis ??? Rocephin [Ceftriaxone] Shortness of Breath ??? Levofloxacin Hives ??? Oxycodone Vomiting ??? Reglan [Metoclopramide] Hyperactive ??? Trazodone Other (see comment) Shaky, restlessness, itching, throat swelling MEDICATIONS: Prior to Admission medications Medication Sig Start Date End Date Taking? Authorizing Provider ondansetron 4 MG disintegrating tablet Take 1 tablet (4 mg total) by mouth every 8 (eight) hours asneeded for Nausea. 07/19/21 Yes Bonnie Martinez APRN albuterol sulfate HFA 108 (90 Base) MCG/ACT [...] by mouth daily. 09/07/20 Kerrie Leonard PA-C naloxone 4 MG/0.1ML nasal spray CALL 911. SPR CONTENTS OF ONE SPRAYER (0.1ML) INTO ONE NOSTRIL. REPEAT IN 2-3 MIN IF SYMPTOMS OF OPIOID EMERGENCY PERSIST, ALTERNATE NOSTRILS 05/13/21 Doc Abstract oxybutynin 5 MG tablet Take 5 mg by mouth 2 (two) times daily. Doc Abstract PULSE OXIMETER, DME, Please use the pulse oximeter when you are short of breath. If your reading isless than 85% after exerting yourself, or less than 90% at rest, please return to the emergency department. If you feel you are in immediate danger, please call 911. 04/19/21 Jaswinder Gayatn MD ROPINIROLE HYDROCHLORIDE 5 MG Tab Take [...] Types: Cigarettes Quit date: 03/23/1977 Years since quittin.3 ??? Smokeless tobacco: Never Used Substance Use Topics ??? Alcohol use: No ??? Drug use: No Review of Systems Review of Systems Constitutional: Positive for chills and fatigue. Negative for activity change, appetite change and fever. HENT: Negative for congestion, ear pain, postnasal drip, rhinorrhea, sinus pressure, sinus pain, sore throat and trouble swallowing. Eyes: Negative for visual disturbance. Respiratory: Positive for shortness of breath. Negative for cough, chest tightness, wheezing and stridor. Cardiovascular: Negative for chest pain, palpitations and leg swelling. Gastrointestinal: Positive for abdominal pain (generalized discomfort throughout, not sharp pain), nausea and vomiting. Negative for abdominal distention, constipation and diarrhea. Endocrine: Negative. Genitourinary: Negative for difficulty urinating, dysuria, flank pain and hematuria. Musculoskeletal: Negative for arthralgias, joint swelling and neck pain. Skin: Negative for color change, pallor and wound. Neurological: Negative. Negative for dizziness, seizures, syncope, light- headedness and headaches. Psychiatric/Behavioral: Negative. Negative for agitation, hallucinations and suicidal ideas. Except as noted in HPI, 10 point review of systems was completed and otherwise unremarkable or noncontributory to chief complaint. Physical Exam Filed Vitals: 07/19/21 1255 07/19/21 1731 BP: (!) 159/101 (!) 157/91 Pulse: 85 84 Resp: 18 18 Temp: 97.5 ??F (36.4 ??C) TempSrc: Temporal SpO2: 100% Weight: 128.4 kg (283 lb) Height: 5' 1 (1.549 m) Physical Exam Vitals and nursing note reviewed. Constitutional: General: She is not in acute distress. Appearance: She is obese. She is not ill-appearing or toxic-appearing. Comments: Sitting up in wheelchair. Respirations are regular, even, and non- labored, no acute distress noted. HENT: Head: Normocephalic and atraumatic. Right Ear: External ear normal. Left Ear: External ear normal. Nose: Nose normal. Mouth/Throat: Mouth: Mucous membranes are moist. Pharynx: Oropharynx is clear. Uvula midline. No pharyngeal swelling or oropharyngeal exudate. Eyes: Conjunctiva/sclera: Conjunctivae normal. Pupils: Pupils are equal, round, and reactive to light. Cardiovascular: Rate and Rhythm: Normal rate and regular rhythm. Pulses: Normal pulses. Heart sounds: Normal heart sounds. Pulmonary: Effort: Pulmonary effort is normal. No respiratory distress. Breath sounds: Normal breath sounds. No stridor. Abdominal: General: Bowel sounds are normal. There is no distension. Palpations: Abdomen is soft. There is no mass. Tenderness: There is no abdominal tenderness. There is no guarding or rebound. Hernia: No hernia is present. Musculoskeletal: General: Normal range of motion. Cervical back: Neck supple. Skin: General: Skin is warm. Capillary Refill: Capillary refill takes less than 2 seconds. Findings: No rash. Neurological: General: No focal deficit present. Mental Status: She is alert and oriented to person, place, and time. Psychiatric: Mood and Affect: Mood normal. Behavior: Behavior normal. Diagnostic Studies / Procedures ELECTROCARDIOGRAMS: Results for orders placed or performed during the hospital encounter of 07/19/21 ECG 12 lead Narrative [place] [facility] Test Date: 2021-07-19 Pat Name: MOHSEN MARQUES Department: Room: Gender: Female Kennel Manager: : [id number] Requested By: GERARDO YOON Order Number: [id number] Reading MD: Measurements Intervals [place] Rate: 72 P: 30 [place]: 139 QRS: 6 QRSD: 87 T: 33 QT: 375 QTc: 413 Interpretive Statements SINUS RHYTHM Compared to ECG 05/22/2021 18:44:34 No significant changes LABORATORY STUDIES: Results for orders placed or performed during the hospital encounter of 07/19/21 CBC W/DIFF AUTOMATED Result Value Ref Range WBC 10.3 4.5 - 11.0 x10'3/uL RBC 4.58 4.20 - 5.40 x10'6/uL HGB 13.2 12.0 - 16.0 G/DL HCT 42.7 38.0 - 48.0 % MCV 93.2 81.0 - 99.0 FL MCH 28.8 27.0 - 31.0 PG MCHC 30.9 (L) 32.0 - 36.0 G/DL RDW 14.4 11.5 - 14.5 % PLT 292 130 - 400 x10'3/uL MPV 9.7 9.3 - 12.2 FL DIFFERENTIAL TYPE AUTOMATED DIFFERENTIAL NEUTROPHILS 67.8 % LYMPHOCYTES 22.8 % MONOCYTES 6.1 % EOSINOPHILS 2.3 % BASOPHILS 0.3 % IMMATURE GRANS 0.7 % ABS. NEUTROPHILS TOTAL 6.97 1.80 - 7.70 x10'3/uL ABS. LYMPHOCYTES 2.35 1.00 - 4.80 x10'3/uL ABS. MONOCYTES 0.63 0.24 - 0.86 x10'3/uL ABS. EOSINOPHILS 0.24 0.04 - 0.36 x10'3/uL ABS. BASOPHILS 0.03 0.01 - 0.08 x10'3/uL ABS. IMMATURE GRANULOCYTES 0.07 0.00 - 0.49 x10'3/uL COMPREHENSIVE METABOLIC PANEL Result Value Ref Range GLUCOSE 153 (H) 70 - 99 MG/DL BUN 14 7 - 18 MG/DL CREATININE S/P/B 0.77 0.55 - 1.02 MG/DL SODIUM 138 136 - 145 MMOL/L POTASSIUM 3.9 3.5 - 5.1 MMOL/L CHLORIDE S/P/B 106 100 - 108 MMOL/L CO2 29.0 21 - 32 MMOL/L CALCIUM 9.1 8.5 - 10.1 MG/DL BILIRUBIN TOTAL S/P/B 0.5 0.2 - 1.2 MG/DL TOTAL PROTEIN S/P/B 8.4 (H) 6.4 - 8.2 G/DL ALBUMIN S/P/B 3.2 (L) 3.4 - 5.0 G/DL AST 20 15 - 37 U/L ALT 27 14 - 55 U/L ALKALINE PHOSPHATASE S/P/B 80 50 - 136 U/L ANION GAP 3.0 (L) 5 - 15 MMOL/L BUN CREATININE RATIO 18.2 6 - 26 A/G RATIO 0.6 (L) 1.0 - 2.0 RATIO eGFR Non-Afr. Amer. 81 (L) >90 ML/MIN/1.73 M2 eGFR Afr. Amer. >90 >90 ML/MIN/1.73 M2 TROPONIN, QUANT Result Value Ref Range TROPONIN I HIGH SENSITIVITY 7 <54 ng/L LIPASE Result Value Ref Range LIPASE 66 (L) 73 - 393 UNITS/L URINALYSIS Result Value Ref Range Specimen Type URINE CLEAN CATCH COLOR (U) LIGHT YELLOW TRANSPARENCY CLEAR Specific [place] (U) 1.018 1.001 - 1.030 U PH 6.5 5.0 - 9.0 LEUKOCYTE ESTERASE NEGATIVE NEGATIVE NITRITES NEGATIVE NEGATIVE PROTEIN (U) NEGATIVE <30 MG/DL URINE GLUCOSE NORMAL NORMAL MG/DL U KETONES NEGATIVE NEGATIVE MG/DL UROBILINOGEN NORMAL NORMAL MG/DL BILIRUBIN (U) NEGATIVE NEGATIVE MG/DL BLOOD 1+ (A) NEGATIVE CULTURE & SENSITIVITY INDICATED? CULTURE IS NOT INDICATED MUCUS RARE /LPF WBC/HPF <1 <6 /HPF RBC/HPF 16 (H) <6 /HPF BACTERIA (URINE) RARE (A) NONE /HPF INFLUENZA A & B Specimen: NASOPHARYNGEAL SWAB Result Value Ref Range Specimen Type NASAL INFLUENZA A NEGATIVE NEGATIVE INFLUENZA B NEGATIVE NEGATIVE IMAGING STUDIES XR CHEST PA+LAT Final Result by User, [id number] (07/19 1402) Examination: Chest 2 View History: Shortness of breath DATE/TIME: 07/19/2021 1:34 PM Comparison: 05/22/2021 Technique: PA and lateral views were obtained. Findings: Arch size, mediastinal contours and pulmonary vasculature are within normal limits. No pulmonary consolidation, pleural effusion or pneumothorax. No acute osseous abnormality. Thoracic spondylosis. Impression: No acute chest findings. Referred By: Interpreted By: Osiel Vergara MD, 07/19/2021 2:06 PM EKG Reading Date/Time: 07/19/2021 1:52 PM Performed by: Bonnie Martinez APRN Authorized by: Bonnie Martinez APRN Rhythm: sinus rhythm Rate: normal BPM: 72 Comments: NO STEMI NO ECTOPY NO TACHYCARDIA ED Course / Medical Decision Making MDM Number of Diagnoses or Management Options Elevated blood pressure reading Nausea and vomiting Viral illness Diagnosis management comments: Pulse Ox Interpretation: Saturation: (%) 100 Oxygen Delivery: Room air Interpretation: No hypoxia at this time. Rhythm strip interpretation: Normal sinus rhythm, no arrhythmia noted. Ventricular rate (bpm): 84 Presents for generalized not feeling well, mild shortness of breath. Chest x-ray is negative. Normal EKG. We discussed that patient likely has a viral illness. Vitals are stable. She was given IV fluids while here. Discussed with patient supportive care measures. She has no abdominal tenderness on exam. Discussed discharge medications. Discussed very strict return precautions. Patient is nontoxicin appearance. Patient in no acute distress. Discussed return precautions with the patient including all the red flag signs or symptoms of when to return the patient. The patient verbalized understanding and was agreeable with discharge and closefollow-up Amount and/or Complexity of Data Reviewed Clinical lab tests: reviewed and ordered Tests in the radiology section of CPT??: ordered and reviewed Tests in the medicine section of CPT??: ordered and reviewed Review and summarize past medical records: yes Independent visualization of images, tracings, or specimens: yes Risk of Complications, Morbidity, and/or Mortality Presenting problems: low Diagnostic procedures: minimal Management options: moderate Patient Progress Patient progress: stable (Patient advised regarding concerning signs and symptoms, and return precautions. I ensured the patient's understanding of instructions utilizing teach-back. Advised to call if there were any questions. Patient agrees with plan for discharge and will make sure to follow up.All of patient's questions answered before discharge. ) Medications sodium chloride 0.9% bolus infusion SOLN 1,000 mL (0 mLs Intravenous Infusion Stop Time 07/19/21 1730) ondansetron (ZOFRAN) injection 4 mg (4 mg Intravenous Given 07/19/21 1419) Clinical Impression Viral illness (Primary) Nausea and vomiting Elevated blood pressure reading Disposition: Discharge Discharge Medication List as of 07/19/2021 5:33 PM Follow-up: Gerardo Gale MD #[address] [address] Schedule an appointment as soon as possible for a visit Bonnie Martinez APRN 07/19/2021 Bonnie Martinez APRN, dictated portions of this note using [employer] speech recognition software. Occasional wrong word or sound-alike substitutions may have occurred due to the inherent limitations of voice recognition software. Please read the chart carefully and recognize, using context, where the parrish bstitutions may have occurred. Bonnie Martinez APRN 07/19/21 1925 Cosigned by Marlyn Stuart MD at 07/19/2021 9:48 PM CDT * LINDA Cui - 07/19/2021 12:54 PM CDT [place] EMERGENCY DEPARTMENT ENCOUNTER Medical Screening Examination 07/19/21 12:54 PM Chief Complaint : No chief complaint on file. HPI : Mohsen Marques is a 66-year-old female who presents for flulike symptoms over the past 1 to 2 days. Associated with nausea vomiting and lower abdominal discomfort with generalized body achesand intermittent shortness of breath. Vital Signs: There were no vitals filed for this visit. Physical exam: A brief physical exam was completed to facilitate/expedite patient care. Pinzon findings include: No respiratory distress noted at rest. Weak appearing on exam. Plan: Labs & Imaging was ordered to facilitate patient care. LINDA Cui 07/19/21 1255 Cosigned by Jeremías Jiménez MD at 07/19/2021 2:22 PM CDT * Heaven Romero RN - 07/19/2021 12:51 PM CDT Ambulatory to the ed with a cane. Pt reporting SOB and feeling choked when lying flat, vomiting, fatigue,chills and abd pain for 2 days. Pt reports negative COVID test..HEAVEN ROMERO RN documented in this encounter Plan of Treatment Not on file documented as of this encounter Procedures Procedure Name Priority Date/Time Associated Diagnosis Comments INFLUENZA A & B STAT 07/19/2021 2:24 PM CDT HC URINALYSIS AUTO W/O MICRO STAT 07/19/2021 2:15 PM CDT COMPREHENSIVE METABOLIC PANEL STAT 07/19/2021 2:14 PM CDT CBC W/DIFF AUTOMATED STAT 07/19/2021 2:14 PM CDT TROPONIN, QUANT STAT 07/19/2021 2:14 PM CDT LIPASE STAT 07/19/2021 2:14 PM CDT ECG 12-LEAD Routine 07/19/2021 1:55 PM CDT ELECTROCARDIOGRAM REPORT Routine 022 1:52 PM CDT XR CHEST PA+LAT STAT 07/19/2021 1:47 PM CDT documented in this encounter Results * INFLUENZA A & B (07/19/2021 2:24 PM CDT) SPECIMEN TYPE NASAL 07/19/2021 2:29 PM CDT [facility] INFLUENZA A NEGATIVE NEGATIVE 07/19/2021 3:12 PM CDT [facility] INFLUENZA B NEGATIVE NEGATIVE 07/19/2021 3:12 PM CDT [facility] Comment: Interpretation: Negative for Influenza A and B. A negative result does not exclude influenza virus infection. If influenza is circulating in your community, a diagnosis of influenza should be considered based on a patient's clinical presentation and empiric antiviral treatment should be considered, if indicated. If more conclusive testing is needed for hospitalized inpatients, follow-up confirmatory testing with RT-PCR requires a separate order. NASOPHARYNGEAL SWAB / Unknown 07/19/2021 2:24 PM CDT Gerardo MCKEON MICROBIOLOGY - GENERAL ANGEL SPEARS Final Result [facility] [address] [place] [address], [place] [phone] * (ABNORMAL) URINALYSIS (07/19/2021 2:15 PM CDT) SPECIMEN TYPE URINE CLEAN CATCH 07/19/2021 2:15 PM CDT [facility] COLOR (U) LIGHT YELLOW 07/19/2021 2:36 PM CDT [facility] TRANSPARENCY CLEAR 07/19/2021 2:36 PM CDT [facility] SPECIFIC GRAVITY (U) 1.018 1.001 - 1.030 07/19/2021 2:36 PM CDT [facility] U PH 6.5 5.0 - 9.0 07/19/2021 2:36 PM CDT [facility] LEUKOCYTES (U) NEGATIVE NEGATIVE 07/19/2021 2:36 PM CDT [facility] NITRITES NEGATIVE NEGATIVE 07/19/2021 2:36 PM CDT [facility] PROTEIN (U) NEGATIVE <30 MG/DL 07/19/2021 2:36 PM CDT [facility] URINE GLUCOSE NORMAL NORMAL MG/DL 07/19/2021 2:36 PM CDT [facility] KETONES MG/DL (U) NEGATIVE NEGATIVE MG/DL 07/19/2021 2:36 PM CDT [facility] UROBILINOGEN NORMAL NORMAL MG/DL 07/19/2021 2:36 PM CDT [facility] BILIRUBIN (U) NEGATIVE NEGATIVE MG/DL 07/19/2021 2:36 PM CDT [facility] BLOOD (U) 1+(A) NEGATIVE 07/19/2021 2:36 PM CDT [facility] CULTURE & SENSITIVITY INDICATED? CULTURE IS NOT INDICATED 07/19/2021 2:36 PM CDT [facility] MUCUS RARE /LPF 07/19/2021 2:36 PM CDT [facility] WBC/HPF <1 <6 /HPF 07/19/2021 2:36 PM CDT [facility] RBC/HPF 16(H) <6 /HPF 07/19/2021 2:36 PM CDT [facility] BACTERIA (U) RARE(A) NONE /HPF 07/19/2021 2:36 PM CDT [facility] URINE SPECIMEN OBTAINED BY CLEAN CATCH PROCEDURE / Unknown 07/19/2021 2:15 PM CDT us Gerardo MCKEON URINE ORDERABLES Final Resu lt Performing Organization Address City/[facility]/ZIP Co de Phone Number [facility] [address] [place] [address], [place] [phone] * (ABNORMAL) LIPASE (07/19/2021 2:14 PM CDT) Pathologist [facility] LIPASE 66(L) 73 - 393 UNITS/L 07/19/2021 3:10 PM CDT [facility] 07/19/2021 2:14 PM CDT us Gerardo MCKEON LABORATORY Final Resul t [facility] [address] [place] [address], [place] [phone] * TROPONIN, QUANT (07/19/2021 2:14 PM CDT) Pathologist [facility] TROPONIN I HIGH SENSITIVITY 7 <54 ng/L 07/19/2021 3:10 PM CDT [facility] Comment: HIGH DOSES OF BIOTIN, TROPONIN-SPECIFIC AUTOANTIBODIES, AND ANTIBODY THERAPY CONTAINING HAMA MAY INTERFERE WITH THIS TEST RESULT. CORRELATION TO CLINICAL HISTORY AND PRESENTATION RECOMMENDED. 07/19/2021 2:14 PM CDT us Gerardo MCKEON LABORATORY Final Resul t [facility] [address] [place] [address], [place] [phone] * (ABNORMAL) COMPREHENSIVE METABOLIC PANEL (07/19/2021 2:14 PM CDT) GLUCOSE 153(H) 70 - 99 MG/DL 07/19/2021 3:10 PM CDT [facility] BUN 14 7 - 18 MG/DL 07/19/2021 3:10 PM CDT [facility] [facility] CREATININE S/P/B 0.77 0.55 - 1.02 MG/DL 07/19/2021 3:10 PM CDT [facility] SODIUM S/P/B 138 136 - 145 MMOL/L 07/19/2021 3:10 PM CDT [facility] POTASSIUM S/P/B 3.9 3.5 - 5.1 MMOL/L 07/19/2021 3:10 PM CDT [facility] CHLORIDE S/P/B 106 100 - 108 MMOL/L 07/19/2021 3:10 PM CDT [facility] CO2 29.0 21 - 32 MMOL/L 07/19/2021 3:10 PM CDT [facility] CALCIUM S/P/B 9.1 8.5 - 10.1 MG/DL 07/19/2021 3:10 PM CDT [facility] BILIRUBIN TOTAL S/P/B 0.5 0.2 - 1.2 MG/DL 07/19/2021 3:10 PM T [facility] Comment: THIS ASSAY IS NOT RECOMMENDED FOR PATIENTS UNDERGOING TREATMENT WITH ELTROMBOPAG DUE TO THE POTENTIAL FOR FALSELY ELEVATED RESULTS. TOTAL PROTEIN S/P/B 8.4(H) 6.4 - 8.2 G/DL 07/19/2021 3:10 PM T [facility] ALBUMIN S/P/B 3.2(L) 3.4 - 5.0 G/DL 07/19/2021 3:10 PM T [facility] AST 20 15 - 37 U/L 07/19/2021 3:10 PM T [facility] ALT 27 14 - 55 U/L 07/19/2021 3:10 PM [facility] ALKALINE PHOSPHATASE S/P/B 80 50 - 136 U/L 07/19/2021 3:10 PM [facility] ANION GAP 3.0(L) 5 - 15 MMOL/L 07/19/2021 3:10 PM [facility] BUN CREATININE RATIO 18.2 6 - 26 07/19/2021 3:10 PM [facility] A/G RATIO 0.6(L) 1.0 - 2.0 RATIO 07/19/2021 3:10 PM [facility] EGFR NON-AFR. AMER. 81(L) >90 ML/MIN/1.7 3 M2 07/19/2021 3:10 PM T [facility] EGFR AFR. AMER. >90 >90 ML/MIN/1.7 3 M2 07/19/2021 3:10 PM [facility] Comment: NOTE: eGFR is not calculated for patients <18 years of age. This is an estimated GFR (CKD EPI) and should not be used for calculating drug doses. 07/19/2021 2:14 PM CDT [facility] Final Resul t [facility] [address] [place] [address], [place] [phone] * (ABNORMAL) CBC W/DIFF AUTOMATED (07/19/2021 2:14 PM CDT) WBC 10.3 4.5 - 11.0 x10'3/uL 07/19/2021 2:42 PM CDT [facility] RBC 4.58 4.20 - 5.40 x10'6/uL 07/19/2021 2:42 PM CDT [facility] HGB 13.2 12.0 - 16.0 G/DL 07/19/2021 2:42 PM CDT [facility] HCT 42.7 38.0 - 48.0 % 07/19/2021 2:42 PM CDT [facility] MCV 93.2 81.0 - 99.0 FL 07/19/2021 2:42 PM CDT [facility] MCH 28.8 27.0 - 31.0 PG 07/19/2021 2:42 PM CDT [facility] MCHC 30.9(L) 32.0 - 36.0 G/DL 07/19/2021 2:42 PM CDT [facility] RDW 14.4 11.5 - 14.5 % 07/19/2021 2:42 PM CDT [facility] PLT 292 130 - 400 x10'3/uL 07/19/2021 2:42 PM CDT [facility] MPV 9.7 9.3 - 12.2 FL 07/19/2021 2:42 PM CDT [facility] DIFFERENTIAL TYPE AUTOMATED DIFFERENTIAL 07/19/2021 2:42 PM CDT [facility] NEUTROPHILS % 67.8 % 07/19/2021 2:42 PM CDT [facility] LYMPHOCYTES % 22.8 % 07/19/2021 2:42 PM CDT [facility] MONOCYTES % 6.1 % 07/19/2021 2:42 PM CDT [facility] EOSINOPHILS 2.3 % 07/19/2021 2:42 PM CDT [facility] BASOPHILS 0.3 % 07/19/2021 2:42 PM CDT [facility] IMMATURE GRANS % 0.7 % 07/20/19 2:42 PM CDT [facility] ABS. NEUTROPHILS TOTAL 6.97 1.80 - 7.70 x10'3/uL 07/19/2021 2:42 PM CDT [facility] ABS. LYMPHOCYTES 2.35 1.00 - 4.80 x10'3/uL 07/19/2021 2:42 PM CDT [facility] ABS. MONOCYTES 0.63 0.24 - 0.86 x10'3/uL 07/19/2021 2:42 PM CDT [facility] ABS. EOSINOPHILS 0.24 0.04 - 0.36 x10'3/uL 07/19/2021 2:42 PM CDT [facility] ABS. BASOPHILS 0.03 0.01 - 0.08 x10'3/uL 07/19/2021 2:42 PM CDT [facility] ABS. IMMATURE GRANULOCYTES 0.07 0.00 - 0.49 x10'3/uL 07/19/2021 2:42 PM CDT [facility] 07/19/2021 2:14 PM CDT [facility] Final Resul t [facility] [address] [facility] [address], * ECG 12 lead (07/19/2021 1:55 PM CDT) 07/19/2021 1:55 PM CDT Narrative [facility] - 07/19/2021 8:12 PM CDT ?[facility] ? [address] [place] ? Test Date: ?2021-07-19 Pat Name: ? MOHSEN MARQUES ?Department: ? Room: ? EXAM22 Gender: ? Female ? Kennel Manager: ?? RH : ?1955 ? Requested By: GERARDO YOON Order Number: [id number] ? Reading : ?? Karlos Amor ? Measurements Intervals ?[place] ? Rate: ? 72 ? P: ?30 [place]: ? 139 ?QRS: ?6 QRSD: ? 87 ? T: ?33 QT: ? 375 ? QTc: ?413 ? Interpretive Statements SINUS RHYTHM Compared to ECG 05/22/2021 18:44:34 No significant changes Preliminary EKG interpretation by ED Physician No ischemic changes Gerardo Yoon PA-C CRITICAL ALERT ISSUED ON 07-19-2021 13:58:55 Procedure Note Karlos Amor MD - 07/19/[address] [place] Test Date: 2021-07-19 Pat Name: MOHSEN MARQUES Department: Room: [facility] Gender: Female Kennel Manager: : 1955 Requested By: GERARDO YOON Order Number: [id number] Reading MD: Karlos Amor Measurements Intervals [place] Rate: 72 P: 30 [place]: 139 QRS: 6 QRSD: 87 T: 33 QT: 375 QTc: 413 Interpretive Statements SINUS RHYTHM Compared to ECG 05/22/2021 18:44:34 No significant changes Preliminary EKG interpretation by ED Physician No ischemic changes Gerardo Yoon PA-C CRITICAL ALERT ISSUED ON 07-19-2021 13:58:55 us [facility] ECG ORDERABLES Final Resul t [facility] RAD * EKG Reading (07/19/2021 1:52 PM CDT) Narrative Marlyn Stuart MD - 07/19/2021 1:52 PM CDT Bonnie Martinez APRN ? 07/19/2021 ??7:25 PM EKG Reading Date/Time: 07/19/2021 1:52 PM Performed by: Bonnie Martinez APRN Authorized by: Bonnie Martinez APRN Rhythm: sinus rhythm Rate: normal BPM: 72 Comments: NO STEMI NO ECTOPY NO TACHYCARDIA us Bonnie Martinez APRN [place] [facility] Final Result * XR CHEST PA+LAT (07/19/2021 1:47 PM CDT) Anatomical Region Laterality Modality Chest Radiographic Lizeth ging 07/19/2021 2:06 PM CDT Impressions 07/19/2021 2:08 PM CDT Impression: No acute chest findings. Referred By: ?? Interpreted By: Osiel Vergara MD, 07/19/2021 2:06 PM Narrative 07/19/2021 2:08 PM CDT Examination: Chest 2 View History: Shortness of breath DATE/TIME: 07/19/2021 1:34 PM Comparison: 05/22/2021 Technique: PA and lateral views were obtained. Findings: Arch size, mediastinal contours and pulmonary vasculature are within normal limits. ??No pulmonary consolidation, pleural effusion or pneumothorax. ??No acute osseous abnormality. ??Thoracic spondylosis. Procedure Note Osiel Vergara MD - 07/19/2021 Examination: Chest 2 View History: Shortness of breath DATE/TIME: 07/19/2021 1:34 PM Comparison: 05/22/2021 Technique: PA and lateral views were obtained. Findings: Arch size, mediastinal contours and pulmonary vasculature arewithin normal limits. No pulmonary consolidation, pleural effusion orpneumothorax. No acute osseous abnormality. Thoracic spondylosis. Impression: No acute chest findings. Referred By: Interpreted By: Osiel Vergara MD, 07/19/2021 2:06 PM Bonniealyssia Martinez APRN GENERAL IMAGING Final Result documented in this encounter Visit Diagnoses Diagnosis Viral illness- Primary Unspecified viral infection, in conditions classified elsewhere and of unspecified site Nausea and vomiting Nausea with vomiting Elevated blood pressure reading Elevated blood pressure reading without diagnosis of hypertension documented in this encounter Administered Medications Inactive Administered Medications - up to 3 most recent administrations Medication Order MAR Action Action Date Dose Rate Site ondansetron (ZOFRAN) injection 4 mg 4 mg, Intravenous, Once, 1 dose, On Mon07/19/21 at 1300, IV push over 2-5 minutes. Given 07/19/2021 2:19 PM CDT 4 mg sodium chloride 0.9% bolus infusion SOLN 1,000 mL 1,000 mL, Intravenous, Administer over 15 Minutes, Once, 1 dose, On Mon07/19/21 at 1300 New Bag 07/19/2021 2:18 PM CDT 1,000 mLs documented in this encounter Active and Recently Administered Medications Times are shown in CDT. Scheduled Medication Order 07/17/2021 07/18/2021 07/19/2021 ondansetron (ZOFRAN) injection 4 mg (COMPLETED) 4 mg, Intravenous, Once, 1 dose, On Mon07/19/21 at 1300, IV push over 2-5 minutes. 1419 (Given - Provid er: Anton Quarles RN-LP) sodium chloride 0.9% bolus infusion SOLN 1,000 mL (COMPLETED) 1,000 mL, Intravenous, Administer over 15 Minutes, Once, 1 dose, On Mon07/19/21 at 1300 1418 (New Bag - Prov ider: Anton Quarles RN-)1730 (Infusion Stop Time - Provider: Astrid Gordon RN) documented in this encounter Care Teams It Solutions Architect Relationship Specialty Start Date End Date Gerardo Gale MD [address] [place] [id number] [place] [address] PCP - General FAMILY PRACTICE 08/20/17 Meena Bansal MD [address] [facility] [address] [place] [address] José Luis Carpenter [employer] CARDIOVASCULAR DISEASE 04/24/16 documented as of this encounter
--- OUTSIDE RECORDS SUMMARY | 2024-04-26 02:40 | XMS_ITS | Encounter Summary ---
Author Organization [facility] Address [address] [place] [address]. [place] [address] [place] [address] Care Team Providers Care Lead Security Officer Name Role Phone Meena Bansal MD Unavailable [phone] Justen Gale MD Primary Care Provider [phone] Reason for Referral * Imaging (Emergency) - Closed Specialty Diagnoses / Procedures Referred By Elyssa t Referred To Contact RADIOLOGY Procedures CT ABD+PEL W CON Jaswinder Gaytan MD [address] [place] [address] Phone: tel: fax: Referral ID Status Reason Start Date Expiration Date Visits Re quested Visits Authorized [id number] Closed 09/20/2020 10/21/2021 1 1 Reason for Visit * Reason Comments Urinary Symptoms Abdominal Pain Encounter Details Date Type Department Care Team (Late st Contact Info) Description 09/20/2020 10:39 PM CDT - 09/21/2020 2:[address] 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 No / Unsure 09/20/2020 10:30 PM CDT documented as of this encounter Last Filed Vital Signs Vital Sign Reading Time Taken Comments Blood Pressure 121/73 09/21/2020 12:30 AM CDT Pulse 80 09/21/2020 2:30 AM CDT Temperature 36.5 ??C (97.7 ??F) 09/20/2020 10:34 PM C DT Respiratory Rate 20 09/21/2020 2:30 AM CDT Oxygen Saturation 97% 09/21/2020 2:30 AM CDT Inhaled Oxygen Concentration - - Weight - - Height 154.9 cm (5' 1 ) 09/20/2020 10:34 PM CDT Body Mass Index - - documented in this encounter Functional Status * [...] this encounter Discharge Instructions * Discharge Instructions* Jaswinder Gaytan MD - 09/21/2020 2:24 AM CDT Please follow a clear liquid diet (see attached instructions) for 3 days. After that, please reintroduce solid foods with a diet of bananas, rice, applesauce, and toast (known as the BRAT diet) for 3days. If at the end of this 6-day period you are still experiencing significant nausea, vomiting, and/or diarrhea, please return to the emergency department for further evaluation. Emergency Departments (ED) provide medical screening exams and initial stabilizing treatment of emergency medical conditions. Medicine is an inexact science and many conditions cannot be diagnosed orcompletely treated during a single ED visit. Your treating healthcare provider(s) today feel your condition has been stabilized so further care as an outpatient is reasonable. Emergency care does notsubstitute for complete, ongoing, or follow-up care by your primary care physician or entry level sales consultant. Your medication list was reviewed prior to treatment, and at discharge, by the treating provider for the purpose of this outpatient visit only. Please review this entire medication list with your pharmacist, primary care physician, and specialist(s). It is your responsibility to share any new medication instructions you received this visit with your doctor(s). Although no medicine is without risk, your healthcare provider today feels reasonable decisions were made concerning starting new medications and stopping or changing the dosages of your usual medications until you receive follow-up care. Take medications only as directed. Many medications can cause drowsiness, especially those for pain, anxiety, muscle spasms, nausea, and allergies. DO NOT drive, drink alcohol, operate power machinery, or participate in potentially dangerous activities if taking medicines that make you tired. Chronic pain is best managed by pain specialists or primary care physicians, so narcotic refills are not routinely dispensed in the ED. DO NOT take multiple medications containing acetaminophen (Tylenol), such as many narcotic drug combinations and utcf-tpy-bglceyh cold medicines. Dr. Gaytan's Specific Instructions: After your visit your pain should be improving. If it is not starting to get better in the next 12 to 24 hours then you need to come back to the Emergency Room for a recheck. Return immediately for pain that is getting worse. Often we are unable to determine the cause of abdominal pain during your first visit. Sometimes your symptoms will go away in which case we don't need to do any additional evaluation. Other times your symptoms will change and these changes help us figure out why you are sick. Return to the Emergency Room for any new or changing symptoms. If you are improving in 1-2 days but not well yet then please follow up with your usual doctor for a recheck. Your feedback is important to us. Please fill out the survey you will get in the mail. We need yourinput to give you the best care possible! With your feedback we??ll know where we need to focus ourefforts to provide very good service to our patients! * Attachments The following attachments cannot be sent through Care Everywhere. * Severe Abdominal Pain Discharge Instructions, Adult (Austrian) * Dysuria Discharge Instructions, Adult (Austrian) * Clear Liquid Diet (Austrian) documented in this encounter Medications at Time of Discharge exemestane 25 MG tablet Take 1 tablet [...] 1 unit for every 15 mg/dl >140 ROPINIROLE HYDROCHLORIDE 5 MG Tab Take 1 tablet (5 mg total) by mouth nightly at bedtime. 3 8 XARELTO 20 MG Tab tablet Take 1 tablet (20 mg total) by mouth every evening. amitriptyline 25 MG tablet Take 25 mg by mouth nightly at bedtime. 10/13/19 24 bismuth subsalicylate (PEPTO-BISMOL MAX ST) 525 MG/15ML Suspension suspension Take 30 mLs by mouth every 6 (six) hours as needed (Abdominal cramping/diarrhea). 960 mL 04/19/20 diclofenac EC 75 MG tablet Take 1 tablet (75 mg total) by mouth 2 (two) times daily as needed (Pain. Please take with meals). 30 tablet 04/19/20 21 lisinopril 20 MG tablet Take 20 mg by mouth daily. 10/13/19 24 mirabegron ER (MYRBETRIQ) 25 MG 24 hr tablet Take 1 tablet (25 mg total) by mouth daily. 30 tablet 10/13/19 24 ondansetron 4 MG disintegrating tablet Take 1 tablet (4 mg total) by mouth every 4 (four) hours as needed for Nausea. 20 tablet 04/19/20 21 oxybutynin 5 MG tablet Take 5 mg by mouth 2 (two) times daily. 10/13/19 24 documented as of this encounter ED Notes * David Coe RN - 09/21/2020 2:45 AM CDT Provider discussed today's findings with the patient/family. The patient has been given informationregarding their treatment, follow up and concerning symptoms for which they should seek urgent or emergent attention. I have expressed the the importance of seeking attention should there be any new,or worsening symptoms or persistence of their condition. Patient verbalized understanding of the discharge instructions. * Jaswinder Gaytan MD - 09/21/2020 2:01 AM CDT Chief Complaint Chief Complaint Patient presents with ??? Urinary Symptoms ??? Abdominal Pain History of Present Illness The patient is a very pleasant 65-year-old female examined in the emergency department bed #13. Shepresents today complaining of abdominal pain and distention. She is also complaining of polyuria. The patient states that her abdominal pain and distention has been present for the past 6 weeks. She notes that she has been to the hospital several times in that interval, including a recent admissionfrom 09/05/2020 to 09/07/2020. She relates that no source for her pain has been found. No clear palliative factors are identified. The pain is made worse when she eats. Quality is described as a diffuse, crampy abdominal pain with what the patient describes as significant bloating. She also complains of polyuria, without dysuria. Severity is moderate. Time course is ongoing. Medical History ALLERGIES: Allergies Allergen Reactions ??? Ativan [Lorazepam] Hyperactive Aggrevates restless leg syndrome ??? Cephalosporins Anaphylaxis ??? Rocephin [Ceftriaxone] Shortness of Breath ??? Levofloxacin Hives ??? Oxycodone Vomiting ??? Reglan [Metoclopramide] Hyperactive ??? Trazodone Other (see comment) Shaky, restlessness, itching, throat swelling MEDICATIONS: Prior to Admission medications Medication Sig Start Date End Date Taking? Authorizing Provider bismuth subsalicylate (PEPTO-BISMOL MAX ST) 525 MG/15ML Suspension suspension Take 30 mLs by mouth every 6 (six) hours as needed (Abdominal cramping/diarrhea). 09/21/20 Yes Jaswinder Gaytan MD diclofenac EC 75 MG tablet Take 1 tablet (75 mg total) by mouth 2 (two) times daily as needed (Pain. Please take with meals). 09/21/20 Yes Jaswinder Gaytan MD ondansetron 4 MG disintegrating tablet Take 1 tablet (4 mg total) by mouth every 4 (four) hours as needed for Nausea. 09/21/20 Yes Jaswinder Gaytan MD amitriptyline 25 MG tablet Take 25 mg by mouth nightly at bedtime. Doc Abstract exemestane 25 MG tablet Take 25 mg by mouth daily with supper. Give with food 08/09/17 Doc Abstract HYDROcodone-acetaminophen 7.5-325 MG tablet Take 1 tablet [...] by mouth daily. 09/07/20 Kerrie Leonard PA-C oxybutynin 5 MG tablet Take 5 mg by mouth 2 (two) times daily. Doc Abstract ROPINIROLE HYDROCHLORIDE 5 MG Tab Take 5 mg by mouth nightly at bedtime. 07/14/17 Doc Abstract XARELTO 20 MG Tab tablet Take 20 [...] Types: Cigarettes Quit date: 03/23/1977 Years since quittin.5 ??? Smokeless tobacco: Never Used Substance Use Topics ??? Alcohol use: No ??? Drug use: No Review of Systems Review of Systems REVIEW OF SYSTEMS: The patient denies fevers, chills, or sweats. Complains of nausea, denies vomiting, diarrhea, or constipation, complains of abdominal pain. Denies chest pain, shortness of breath, dyspnea on exertion, or palpitations. Denies headache, loss of consciousness, or seizures. Denies dysuria or hematuria. Ten systems reviewed and negative except as described above or in the HPI. Physical Exam Filed Vitals: 09/20/20 2330 09/21/20 0000 09/21/20 0030 09/21/20 0230 BP: 126/78 134/77 121/73 Pulse: 90 76 82 80 Resp: 16 20 20 20 Temp: TempSrc: SpO2: 97% 97% 98% 97% Height: Physical Exam VITALS: Reviewed. GENERAL: The patient is a very pleasant 65-year-old female examined in the Emergency Department. Patient is in no acute distress at the time of my exam. HEENT: Normocephalic, atraumatic. Pupils are PERRL. Eyes focus and track. Sclerae are nonicteric and not injected. The face is symmetric, round, and fully expressive. Hearing is adequate to conversational voice. Ears are without discharge. Nares are grossly patent, and also without discharge. Mucous membranes are moist. NECK: No JVD, tracheal deviation, or subcutaneous emphysema is noted. The bony spine is nontender. CHEST: The thoracic cage is stable to palpation and nontender. LUNGS: Clear to auscultation bilaterally without wheezes, rales or rhonchi. Equal inspiratory and expiratory phases. HEART: Normal rate, regular rhythm. Normal S1 and S2. ABDOMEN: The patient complains of diffuse, crampy, abdominal pain. She is also complaining of abdominal distention. No fluid wave appreciated. No masses, bruits or hepatosplenomegaly are noted. EXTREMITIES: No clubbing, cyanosis, edema, or evidence of trauma is noted. NEURO: No gross focal neuro deficits are appreciated. GCS = 15. No seizure activity is noted in theemergency department. PSYCHIATRIC: The patient's mood, affect and interaction are appropriate to setting. SKIN: Normal color, temperature, and turgor noted throughout. Diagnostic Studies / Procedures ELECTROCARDIOGRAMS: Results for orders placed or performed during the hospital encounter of 09/20/20 ECG [address] [facility] [place] Test Date: 2020-09-20 Pat Name: MOHSEN MARQUES Department: Room: [id number] Gender: Female [employer] Director: ISABELLA : 1955 Requested By: JASWINDER GAYTAN Order Number: [id number] Reading MD: Measurements Intervals [place] Rate: 86 P: 38 DE: 128 QRS: 0 QRSD: 98 T: 31 QT: 355 QTc: 426 Interpretive Statements SINUS RHYTHM Compared to ECG 07/22/2020 22:46:21 Sinus tachycardia no longer present LABORATORY STUDIES: Results for orders placed or performed during the hospital encounter of 09/20/20 CBC W/DIFF AUTOMATED Result Value Ref Range WBC 13.2 (H) 4.5 - 11.0 x10'3/uL RBC 4.88 4.20 - 5.40 x10'6/uL HGB 14.2 12.0 - 16.0 G/DL HCT 45.5 38.0 - 48.0 % MCV 93.2 80.0 - 94.0 FL MCH 29.1 27.0 - 31.0 PG MCHC 31.2 (L) 32.0 - 36.0 G/DL RDW 13.8 11.5 - 14.5 % PLT 340 130 - 400 x10'3/uL MPV 10.7 9.3 - 12.2 FL DIFFERENTIAL TYPE AUTOMATED DIFFERENTIAL NEUTROPHILS 64.3 % LYMPHOCYTES 25.2 % MONOCYTES 7.8 % EOSINOPHILS 2.0 % BASOPHILS 0.3 % IMMATURE GRANS 0.4 % ABS. NEUTROPHILS TOTAL 8.46 (H) 1.80 - 7.70 x10'3/uL ABS. LYMPHOCYTES 3.32 1.00 - 4.80 x10'3/uL ABS. MONOCYTES 1.03 (H) 0.24 - 0.86 x10'3/uL ABS. EOSINOPHILS 0.26 0.04 - 0.36 x10'3/uL ABS. BASOPHILS 0.04 0.01 - 0.08 x10'3/uL ABS. IMMATURE GRANULOCYTES 0.05 0.00 - 0.49 x10'3/uL COMPREHENSIVE METABOLIC PANEL Result Value Ref Range GLUCOSE 123 (H) 70 - 99 MG/DL BUN 19 (H) 7 - 18 MG/DL CREATININE S/P/B 1.14 (H) 0.55 - 1.02 MG/DL SODIUM 135 (L) 136 - 145 MMOL/L POTASSIUM 4.0 3.5 - 5.1 MMOL/L CHLORIDE S/P/B 103 100 - 108 MMOL/L CO2 29.7 21 - 32 MMOL/L CALCIUM 10.1 8.5 - 10.1 MG/DL BILIRUBIN TOTAL S/P/B 0.4 0.2 - 1.2 MG/DL TOTAL PROTEIN S/P/B 9.3 (H) 6.4 - 8.2 G/DL ALBUMIN S/P/B 3.7 3.4 - 5.0 G/DL AST 26 15 - 37 U/L ALT 30 14 - 55 U/L ALKALINE PHOSPHATASE S/P/B 97 50 - 136 U/L ANION GAP 2.3 (L) 5 - 15 MMOL/L BUN CREATININE RATIO 16.7 6 - 26 A/G RATIO 0.7 (L) 1.0 - 2.0 RATIO eGFR Non-Afr. Amer. 51 (L) >90 ML/MIN/1.73 M2 eGFR Afr. Amer. 59 (L) >90 ML/MIN/1.73 M2 LACTIC ACID Result Value Ref Range LACTIC ACID 1.5 0.4 - 2.0 MMOL/L LIPASE Result Value Ref Range LIPASE 132 73 - 393 UNITS/L MAGNESIUM Result Value Ref Range MAGNESIUM 2.0 1.8 - 2.4 MG/DL TROPONIN, QUANT Result Value Ref Range TROPONIN I <0.015 <0.045 ng/mL. URINALYSIS Result Value Ref Range Specimen Type URINE CLEAN CATCH COLOR (U) LIGHT YELLOW TRANSPARENCY CLEAR Specific [place] (U) 1.028 1.001 - 1.030 U PH 5.5 5.0 - 9.0 LEUKOCYTE ESTERASE 75 (A) NEGATIVE NITRITES NEGATIVE NEGATIVE PROTEIN (U) NEGATIVE <30 MG/DL URINE GLUCOSE NORMAL NORMAL MG/DL U KETONES NEGATIVE NEGATIVE MG/DL UROBILINOGEN NORMAL NORMAL MG/DL BILIRUBIN (U) NEGATIVE NEGATIVE MG/DL BLOOD 1+ (A) NEGATIVE CULTURE & SENSITIVITY INDICATED? SPECIMEN SETUP FOR CULTURE MUCUS FEW /LPF WBC/HPF 16 (H) <6 /HPF RBC/HPF 22 (H) <6 /HPF SQUAMOUS EPITHELIALS RARE /HPF IMAGING STUDIES CT ABD+PEL W CON Final Result by User, [id number] (09/21 0200) EXAMINATION: CT Abdomen and Pelvis with contrast CLINICAL HISTORY: Abdominal pain and distention COMPARISON: 09/05/2020 TECHNIQUE: Computed tomography of the abdomen and pelvis was obtained after administration of intravenous contrast, 100 mL of Isovue-370, without immediate complication according to routine protocol. A dose lowering technique was used for this procedure, which may include, but is not limited to, dose reduction technique, automated exposure control, the use of iterative reconstruction, and ALARA (As Low As Reasonably Achievable) / Image Gently techniques. FINDINGS: Gallbladder surgically absent. Liver, biliary tracts, spleen, kidneys, adrenal glands, pancreas, bladder, and uterus appear unremarkable. No adnexal or ovarian masses seen. The GI tract shows no evidence of obstruction or other acute pathology. Mild colonic diverticulosis. The appendix is normal. No abdominal or pelvic lymphadenopathy seen. Major vascular structures are of normal course and caliber. Ventral abdominal wall significant for numerous mesh tacks lung lower infraumbilical abdominal wall consistent with hernia repair. Inguinal regions unremarkable. Visible lung bases are clear. Visible bones reveal no suspicious lytic or blastic lesions. Bilateral SI joint sclerotic changes consist with symmetric sacroiliitis. IMPRESSION: 1. No CT evidence of acute abdominopelvic pathology. Referred By: JASWINDER GAYTAN Interpreted By: Luís Gómez MD, 09/21/2020 1:56 AM ED Course / Medical Decision Making I estimate there is LOW risk for ACUTE APPENDICITIS, BOWEL OBSTRUCTION, CHOLECYSTITIS, DIVERTICULITIS, INCARCERATED HERNIA, MESENTERIC ISCHEMIA, PANCREATITIS, or PERFORATED BOWEL or ULCER, thus I consider the discharge disposition reasonable. Also, there is no evidence or peritonitis, sepsis, or toxicity. We have discussed the diagnosis and risks, and we agree with discharging home to follow-up with their primary doctor. We also discussed returning to the Emergency Department immediately if newor worsening symptoms occur. We have discussed the symptoms which are most concerning (e.g., bloody stool, fever, changing or worsening pain, vomiting) that necessitate immediate return. As on the previous admissions, no source for the patient's symptoms is found today. She is discharged to follow-up with primary care. She is advised to utilize a clear liquid diet for the next 3 days, followed by 3 days of the BRAT diet. She is provided with symptom control medications. Clinical Impression Abdominal pain (Primary) Dysuria Disposition: Discharge I dictated portions of this note using [employer]it[employer] speech recognition software. Occasional wrong word or sound-alike substitutions may have occurred due to the inherent limitations of voice recognition software. Please read the chart carefully and recognize, using context, where the substitutions may have occurred. If there are any questions, please contact me via [employer] or other HIPAA compliant communication medium for clarification. Jaswinder Gaytan MD 09/21/20 0627 * Antonio Boyle RN - 09/20/2020 10:37 PM CDT Patient arrives to ED via wheelchair with c/o abdominal pain/distention. Patient states onset of abdominal pain/distention has been going on for approximately 6 weeks. Patient also reports decreased urinary output today. Patient abdomen noticeably distended. Patient a/ox4 and in no respiratory distress at this time. documented in this encounter Plan of Treatment Not on file documented as of this encounter Procedures Procedure Name Priority Date/Time Associated Diagnosis Comments CT ABD+PEL W CON STAT 09/21/2020 1:27 AM CDT URINE BACTERIA CULTURE Routine 12:47 AM CDT HC URINALYSIS AUTO W/O MICRO STAT 09/21/2020 12:45 AM CDT COMPREHENSIVE METABOLIC PANEL STAT 09/20/2020 11:52 PM CDT LACTIC ACID TIMED 09/20/2020 11:52 PM CDT CULTURE, BACTERIA, BLOOD STAT 09/20/2020 11:52 PM CDT CULTURE, BACTERIA, BLOOD STAT 09/20/2020 11:52 PM CDT CBC W/DIFF AUTOMATED STAT 09/20/2020 11:52 PM CDT TROPONIN, QUANT STAT 09/20/2020 11:52 PM CDT MAGNESIUM STAT 09/20/2020 11:52 PM CDT LIPASE STAT 09/20/2020 11:52 PM CDT ECG 12-LEAD STAT 09/20/2020 11:47 PM CDT documented in this encounter Results * CT ABD+PEL W CON (09/21/2020 1:27 AM CDT) Anatomical Region Laterality Modality Abdomen Computed Tomogra phy 09/21/2020 1:56 AM CDT Impressions 09/21/2020 1:59 AM CDT IMPRESSION: 1. No CT evidence of acute abdominopelvic pathology. Referred By: JASWINDER GAYTAN Interpreted By: Luís Gómez MD, 09/21/2020 1:56 AM Narrative 09/21/2020 1:59 AM CDT EXAMINATION: CT Abdomen and Pelvis with contrast CLINICAL HISTORY: Abdominal pain and distention COMPARISON: 09/05/2020 TECHNIQUE: Computed tomography of the abdomen and pelvis was obtained after administration of intravenous contrast, 100 mL of Isovue-370, without immediate complication according to routine protocol. A dose lowering technique was used for this procedure, which may include, but is not limited to, dose reduction technique, automated exposure control, the use of iterative reconstruction, and ALARA (As Low As Reasonably Achievable) / Image Gently techniques. FINDINGS: Gallbladder surgically absent. Liver, biliary tracts, spleen, kidneys, adrenal glands, pancreas, bladder, and uterus appear unremarkable. No adnexal or ovarian masses seen. The GI tract shows no evidence of obstruction or other acute pathology. Mild colonic diverticulosis. The appendix is normal. No abdominal or pelvic lymphadenopathy seen. Major vascular structures are of normal course and caliber. Ventral abdominal wall significant for numerous mesh tacks lung lower infraumbilical abdominal wall consistent with hernia repair. Inguinal regions unremarkable. Visible lung bases are clear. Visible bones reveal no suspicious lytic or blastic lesions. Bilateral SI joint sclerotic changes consist with symmetric sacroiliitis. Procedure Note Luís Gómez MD - 09/21/2020 EXAMINATION: CT Abdomen and Pelvis with contrast CLINICAL HISTORY: Abdominal pain and distention COMPARISON: 09/05/2020 TECHNIQUE: Computed tomography of the abdomen and pelvis was obtainedafter administration of intravenous contrast, 100 mL of Isovue-370,without immediate complication according to routine protocol. A dose lowering technique was used for this procedure, which may include,but is not limited to, dose reduction technique, automated exposurecontrol, the use of iterative reconstruction, and ALARA (As Low AsReasonably Achievable) / Image Gently techniques. FINDINGS: Gallbladder surgically absent. Liver, biliary tracts, spleen, kidneys,adrenal glands, pancreas, bladder, and uterus appear unremarkable. Noadnexal or ovarian masses seen. The GI tract shows no evidence of obstruction or other acute pathology.Mild colonic diverticulosis. The appendix is normal. No abdominal or pelvic lymphadenopathy seen. Major vascular structures areof normal course and caliber. Ventral abdominal wall significant fornumerous mesh tacks lung lower infraumbilical abdominal wall consistentwith hernia repair. Inguinal regions unremarkable. Visible lung bases are clear. Visible bones reveal no suspicious lytic orblastic lesions. Bilateral SI joint sclerotic changes consist withsymmetric sacroiliitis. IMPRESSION: 1. No CT evidence of acute abdominopelvic pathology. Referred By: JASWINDER GAYTAN Interpreted By: Luís Gómez MD, 09/21/2020 1:56 AM us Jaswinder Gaytan MD CT Final Result * CULTURE URINE (09/21/2020 12:47 AM CDT) SPEC DESCRIPTION URINE CLEAN CATCH 09/21/2020 1:16 AM CDT [facility] SPECIAL REQUESTS NO SPECIAL REQUEST 09/21/2020 1:16 AM CDT [facility] CULTURE RESULT POLYMICROBIAL GROWTH CONSISTENT WITH NORMAL GENITAL YESENIA. ?? SUSCEPTIBILITIES NOT ROUTINELY PERFORMED. 09/22/2020 11:03 AM CDT [facility] URINE SPECIMEN OBTAINED BY CLEAN CATCH PROCEDURE / Unknown 09/21/2020 12:47 AM CDT 09/21/2020 1:16 AM CDT Jaswinder Gaytan MD MICROBIOLOGY - GENERAL ORDERABL ES Final Result [facility] [address] [place] [address], * (ABNORMAL) URINALYSIS (09/21/2020 12:45 AM CDT) SPECIMEN TYPE URINE CLEAN CATCH 09/21/2020 12:46 AM CDT [facility] COLOR (U) LIGHT YELLOW 09/21/2020 1:15 AM CDT [facility] TRANSPARENCY CLEAR 09/21/2020 1:15 AM CDT [facility] SPECIFIC GRAVITY (U) 1.028 1.001 - 1.030 09/21/2020 1:15 AM CDT [facility] U PH 5.5 5.0 - 9.0 09/21/2020 1:15 AM CDT [facility] LEUKOCYTES (U) 75(A) NEGATIVE 09/21/2020 1:15 AM CDT [facility] NITRITES NEGATIVE NEGATIVE 09/21/2020 1:15 AM CDT [facility] PROTEIN (U) NEGATIVE <30 MG/DL 09/21/2020 1:15 AM CDT [facility] URINE GLUCOSE NORMAL NORMAL MG/DL 09/21/2020 1:15 AM CDT [facility] KETONES MG/DL (U) NEGATIVE NEGATIVE MG/DL 09/21/2020 1:15 AM CDT [facility] UROBILINOGEN NORMAL NORMAL MG/DL 09/21/2020 1:15 AM CDT [facility] BILIRUBIN (U) NEGATIVE NEGATIVE MG/DL 09/21/2020 1:15 AM CDT [facility] BLOOD (U) 1+(A) NEGATIVE 09/21/2020 1:15 AM CDT [facility] CULTURE & SENSITIVITY INDICATED? SPECIMEN SETUP FOR CULTURE 09/21/2020 1:15 AM CDT [facility] MUCUS FEW /LPF 09/21/2020 1:15 AM CDT [facility] WBC/HPF 16(H) <6 /HPF 09/21/2020 1:15 AM CDT [facility] RBC/HPF 22(H) <6 /HPF 09/21/2020 1:15 AM CDT [facility] SURGERY LAB SQUAMOUS EPITHELIALS RARE /HPF 09/21/2020 1:15 AM CDT [facility] URINE SPECIMEN OBTAINED BY CLEAN CATCH PROCEDURE / Unknown 09/21/2020 12:45 AM CDT us Jaswinder Gaytan MD URINE ORDERABLES Final Result [facility] [address] [place] [address], [place] [phone] * CULTURE, BACTERIA, BLOOD (09/20/2020 11:52 PM CDT) SPEC DESCRIPTION BLOOD 09/20/2020 11:35 PM CDT [facility] SPECIAL REQUESTS NO SPECIAL REQUEST 09/20/2020 11:35 PM CDT [facility] CULTURE RESULT NO GROWTH 5 DAYS 09/26/2020 12:04 PM CDT [facility] BLOOD SPECIMEN OBTAINED FOR BLOOD CULTURE / Unknown 09/20/2020 11:52 PM CDT 09/21/2020 12:02 AM CDT Jaswinder Gaytan MD MICROBIOLOGY - GENERAL ORDERABL ES Final Result [facility] [address] [place] [address], [place] [phone] * CULTURE, BACTERIA, BLOOD (09/20/2020 11:52 PM CDT) SPEC DESCRIPTION BLOOD 09/20/2020 11:35 PM CDT [facility] SPECIAL REQUESTS NO SPECIAL REQUEST 09/20/2020 11:35 PM CDT [facility] CULTURE RESULT NO GROWTH 5 DAYS 09/26/2020 12:04 PM CDT [facility] BLOOD SPECIMEN OBTAINED FOR BLOOD CULTURE / Unknown 09/20/2020 11:52 PM CDT 09/21/2020 12:03 AM CDT Jaswinder Gaytan MD MICROBIOLOGY - GENERAL ORDERABL ES Final Result [facility] [address] [place] [address], [place] [phone] * TROPONIN, QUANT (09/20/2020 11:52 PM CDT) TROPONIN I <0.015 <0.045 ng/mL. 09/21/2020 12:36 AM CDT [facility] Comment: HIGH DOSES OF BIOTIN MAY INTERFERE WITH THIS TEST RESULT. CORRELATION TO CLINICAL HISTORY AND PRESENTATION RECOMMENDED. 09/20/2020 11:5 2 PM CDT us Jaswinder Gaytan MD LABORATORY Final Result Performing Organization Address City/[facility]/ZIP Co de Phone Number [facility] [address] [place] [address], * MAGNESIUM (09/20/2020 11:52 PM CDT) MAGNESIUM 2.0 1.8 - 2.4 MG/DL 09/21/2020 12:36 AM CDT [facility] 09/20/2020 11:5 2 PM CDT us Jaswinder Gaytan MD LABORATORY Final Result Performing Organization Address [facility] Co de Phone Number [facility] [address] [place] [address], * LIPASE (09/20/2020 11:52 PM CDT) LIPASE 132 73 - 393 UNITS/L 09/21/2020 12:36 AM CDT [facility] 09/20/2020 11:5 2 PM CDT us Jaswinder Gaytan MD LABORATORY Final Result Performing Organization Address City/[facility]/ZIP Co de Phone Number [facility] [address] [place] [address], * LACTIC ACID (09/20/2020 11:52 PM CDT) LACTIC ACID VENOUS 1.5 0.4 - 2.0 MMOL/L 09/21/2020 12:34 AM CDT [facility] 09/20/2020 11:5 2 PM CDT Jaswinder Gaytan MD LABORATORY Final Result [facility] [address] [place] [address], [place] [phone] * (ABNORMAL) COMPREHENSIVE METABOLIC PANEL (09/20/2020 11:52 PM CDT) GLUCOSE 123(H) 70 - 99 MG/DL 09/21/2020 12:36 AM CDT [facility] BUN 19(H) 7 - 18 MG/DL 09/21/2020 12:36 AM CDT [facility] CREATININE S/P/B 1.14(H) 0.55 - 1.02 MG/DL 09/21/2020 12:36 AM CDT [facility] SODIUM S/P/B 135(L) 136 - 145 MMOL/L 09/21/2020 12:36 AM CDT [facility] POTASSIUM S/P/B 4.0 3.5 - 5.1 MMOL/L 09/21/2020 12:36 AM CDT [facility] CHLORIDE S/P/B 103 100 - 108 MMOL/L 09/21/2020 12:36 AM CDT [facility] CO2 29.7 21 - 32 MMOL/L 09/21/2020 12:36 AM CDT [facility] CALCIUM S/P/B 10.1 8.5 - 10.1 MG/DL 09/21/2020 12:36 AM CDT [facility] BILIRUBIN TOTAL S/P/B 0.4 0.2 - 1.2 MG/DL 09/21/2020 12:36 AM [facility] Comment: THIS ASSAY IS NOT RECOMMENDED FOR PATIENTS UNDERGOING TREATMENT WITH ELTROMBOPAG DUE TO THE POTENTIAL FOR FALSELY ELEVATED RESULTS. TOTAL PROTEIN S/P/B 9.3(H) 6.4 - 8.2 G/DL 09/21/2020 12:36 AM [facility] ALBUMIN S/P/B 3.7 3.4 - 5.0 G/DL 09/21/2020 12:36 AM [facility] AST 26 15 - 37 U/L 09/21/2020 12:36 AM [facility] ALT 30 14 - 55 U/L 09/21/2020 12:36 AM [facility] ALKALINE PHOSPHATASE S/P/B 97 50 - 136 U/L 09/21/2020 12:36 AM [facility] ANION GAP 2.3(L) 5 - 15 MMOL/L 09/21/2020 12:36 AM [facility] BUN CREATININE RATIO 16.7 6 - 26 09/21/2020 12:36 AM [facility] A/G RATIO 0.7(L) 1.0 - 2.0 RATIO 09/21/2020 12:36 AM [facility] EGFR NON-AFR. AMER. 51(L) >90 ML/MIN/1.7 3 M2 09/21/2020 12:36 AM [facility] EGFR AFR. AMER. 59(L) >90 ML/MIN/1.7 3 M2 09/21/2020 12:36 AM [facility] Comment: NOTE: eGFR is not calculated for patients <18 years of age. This is an estimated GFR (CKD EPI) and should not be used for calculating drug doses. 09/20/2020 11:5 2 PM CDT Jaswinder Gaytan MD LABORATORY Final Result [facility] [address] [place] [address], * (ABNORMAL) CBC W/DIFF AUTOMATED (09/20/2020 11:52 PM CDT) WBC 13.2(H) 4.5 - 11.0 x10'3/uL 09/21/2020 12:11 AM CDT [facility] RBC 4.88 4.20 - 5.40 x10'6/uL 09/21/2020 12:11 AM CDT [facility] HGB 14.2 12.0 - 16.0 G/DL 09/21/2020 12:11 AM CDT [facility] HCT 45.5 38.0 - 48.0 % 09/21/2020 12:11 AM CDT [facility] MCV 93.2 80.0 - 94.0 FL 09/21/2020 12:11 AM CDT [facility] MCH 29.1 27.0 - 31.0 PG 09/21/2020 12:11 AM CDT [facility] MCHC 31.2(L) 32.0 - 36.0 G/DL 09/21/2020 12:11 AM CDT [facility] RDW 13.8 11.5 - 14.5 % 09/21/2020 12:11 AM CDT [facility] PLT 340 130 - 400 x10'3/uL 09/21/2020 12:11 AM CDT [facility] MPV 10.7 9.3 - 12.2 FL 09/21/2020 12:11 AM CDT [facility] DIFFERENTIAL TYPE AUTOMATED DIFFERENTIAL 09/21/2020 12:11 AM CDT [facility] NEUTROPHILS % 64.3 % 09/21/2020 12:11 AM CDT [facility] LYMPHOCYTES % 25.2 % 09/21/2020 12:11 AM CDT [facility] MONOCYTES % 7.8 % 09/21/2020 12:11 AM CDT [facility] EOSINOPHILS 2.0 % 09/21/2020 12:11 AM CDT [facility] BASOPHILS 0.3 % 09/21/2020 12:11 AM CDT [facility] IMMATURE GRANS % 0.4 % 09/22/19 12:11 AM CDT [facility] ABS. NEUTROPHILS TOTAL 8.46(H) 1.80 - 7.70 x10'3/uL 09/21/2020 12:11 AM CDT [facility] ABS. LYMPHOCYTES 3.32 1.00 - 4.80 x10'3/uL 09/21/2020 12:11 AM CDT [facility] ABS. MONOCYTES 1.03(H) 0.24 - 0.86 x10'3/uL 09/21/2020 12:11 AM CDT [facility] ABS. EOSINOPHILS 0.26 0.04 - 0.36 x10'3/uL 09/21/2020 12:11 AM CDT [facility] ABS. BASOPHILS 0.04 0.01 - 0.08 x10'3/uL 09/21/2020 12:11 AM CDT [facility] ABS. IMMATURE GRANULOCYTES 0.05 0.00 - 0.49 x10'3/uL 09/21/2020 12:11 AM CDT [facility] 09/20/2020 11:5 2 PM CDT Jaswinder Gaytan MD LABORATORY Final Result Performing Organization Address [facility]/State/ZIP Co de Phone Number [facility] [address] [place] [address], * ECG 12 lead (09/20/2020 11:47 PM CDT) 09/20/2020 11:4 7 PM CDT Narrative [facility] Elena YOU (SHELBY) RAD - 09/21/2020 10:17 PM CDT [facility] ? [address] [facility] [place] ? Test Date: ?2020-09-20 Pat Name: ? MOHSEN MARQUES ?Department: ? Room: ? EXAM13 Gender: ? Female ? [employer] Director: ?? GDD : ?1955 ? Requested By: JASWINDER Zimmerman Number: [id number] ? Reading : ?? Vikash Rollins ? Measurements Intervals ?[place] ? Rate: ? 86 ? P: ?38 DE: ? 128 ?QRS: ?0 QRSD: ? 98 ? T: ?31 QT: ? 355 ? QTc: ?426 ? Interpretive Statements SINUS RHYTHM Non-specific ST-T wave abnormalities Procedure Note Vikash Rollins MD,PHD - 09/21/[address] [facility] Test Date: 2020-09-20 Pat Name: MOHSEN MARQUES Department: Room: [facility] Gender: Female [employer] Director: ISABELLA : 1955 Requested By: JASWINDER GAYTAN Order Number: [id number] Felipe MD: Vikash Rollins Measurements Intervals [place] Rate: 86 P: 38 DE: 128 QRS: 0 QRSD: 98 T: 31 QT: 355 QTc: 426 Interpretive Statements SINUS RHYTHM Non-specific ST-T wave abnormalities us Jaswinder Gaytan MD ECG ORDERABLES Final Result [facility] YOU (SHELBY) DARIUS documented in this encounter Visit Diagnoses Diagnosis Abdominal pain- Primary Abdominal pain, unspecified site Dysuria documented in this encounter Administered Medications Inactive Administered Medications - up to 3 most recent administrations Medication Order MAR Action Action Date Dose Rate Site fentaNYL (SUBLIMAZE) injection 50 mcg 50 mcg, Intravenous, Once, 1 dose, On 09/20/20 at 2345, If intravenous (IV) route has been ordered, give over 1-2 minutes. Given 09/20/2020 11:53 PM CDT 50 mcg iopamidol (ISOVUE-370) 76 % injection 100 mL 100 mL, Intravenous, IMG once as needed, Contrast, 1 dose, Starting on 09/21/20 at 0105, Until 09/21/20 at 0105 Given 09/21/2020 1:05 AM CDT 100 mLs ketorolac (TORADOL) injection 15 mg 15 mg, Intravenous, Once, 1 dose, On 09/20/20 at 2345, Max dose is 15 mg for: patients 65 years or older, renal function less than 30 mL/min, and weight less than 50 kg. Given 09/20/2020 11:56 PM CDT 15 mg ondansetron (ZOFRAN) injection 4 mg 4 mg, Intravenous, Once, 1 dose, On 09/20/20 at 2345, IV push over 2-5 minutes. Given 09/20/2020 11:53 PM CDT 4 mg sodium chloride 0.9% bolus infusion SOLN 500 mL 500 mL, Intravenous, Administer over 15 Minutes, Once, 1 dose, On 09/20/20 at 2345 New Bag 09/20/2020 11:56 PM CDT 500 mLs documented in this encounter Active and Recently Administered Medications Times are shown in CDT. Scheduled Medication Order 09/19/2020 09/20/2020 09/21/2020 fentaNYL (SUBLIMAZE) injection 50 mcg (COMPLETED) 50 mcg, Intravenous, Once, 1 dose, On 09/20/20 at 2345, If intravenous (IV) route has been ordered, give over 1-2 minutes. 2353 (Given - Provider: David oCe RN) ketorolac (TORADOL) injection 15 mg (COMPLETED) 15 mg, Intravenous, Once, 1 dose, On 09/20/20 at 2345, Max dose is 15 mg for: patients 65 years or older, renal function less than 30 mL/min, and weight less than 50 kg. 2356 (Given - Provider: David Coe, NURIS) ondansetron (ZOFRAN) injection 4 mg (COMPLETED) 4 mg, Intravenous, Once, 1 dose, On 09/20/20 at 2345, IV push over 2-5 minutes. 2353 (Given - Provider: David Coe RN) sodium chloride 0.9% bolus infusion SOLN 500 mL (COMPLETED) 500 mL, Intravenous, Administer over 15 Minutes, Once, 1 dose, On 09/20/20 at 2345 2356 (New Bag - Provider: David Coe RN) 0024 (Infusion Stop Time - Provider: David Coe RN) PRN Medication Order 09/19/2020 09/20/2020 09/21/2020 iopamidol (ISOVUE-370) 76 % injection 100 mL (COMPLETED) 100 mL, Intravenous, IMG once as needed, Contrast, 1 dose, Starting on 09/21/20 at 0105, Until Mon09/21/20 at 0105 0105 (Given - Provid er: Mara Mckeon, RT) documented in this encounter Care Teams Lead Security Officer Relationship Specialty Start Date End Date Justen Gale MD [facility]. [address] [place] [address] PCP - General FAMILY PRACTICE 08/20/17 Meena Bansal MD [facility]. [facility] [email or web address] [address] [place] [address] José Luis Telesales Representative CARDIOVASCULAR DISEASE 04/24/16 documented as of this encounter
--- OUTSIDE RECORDS SUMMARY | 2024-04-26 02:40 | XMS_ITS | Encounter Summary ---
Author Organization [facility] Address [address] [place] [address]. [place] [address] [place] [address] Care Team Providers Care Rocket Assembly Operator Name Role Phone Meena Bansal MD Unavailable [phone] Justen Gale MD Primary Care Provider [phone] Encounter Details Date Type Department Care Team (Latest Contact Info) Description 10/13/2023 Travel Social History Tobacco Use Types Packs/Day Years Used Date Smoking Tobacco: Former Cigarettes 0.3 2 1 05/23/1974 - 03/23/1977 Smokeless Tobacco: Never Alcohol Use Standard Drinks/Week Comments No 0 (1 standard drink = 0.6 oz pur e alcohol) [facility] Utilities Answer Date Recorded In the past 12 months has e electric, gas, oil, or water [employer] threatened to shut off services in your [...] any time in the past 12 m [facility], were you homeless or living in a chcf (including now)? 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 Yes 10/13/2023 9:26 PM CDT Dashawn Naranjo RN Ac tive * Question Answer Date of Assessment Author Status Do you have difficulty dressing or bathing? Yes 10/13/2023 9:26 PM CDT Dashawn Naranjo R N Active Because of a physical, mental, or emotional condition, do you have difficulty doing errands alone such as visiting a doctor's office or shopping? No 10/13/2023 9:26 PM CDT Dashawn Naranjo RN Act hugh * RETIRED Are you deaf or do [...] as of this encounter Mental Status * Question Answer Entry Date Author Status Because of a physical, mental, or emotional condition, do you have serious difficulty concentrating, remembering, or making decisions? No 10/13/2023 9:26 PM CDT Dashawn Naranjo R N Active * Because of a physical, mental, or emotional condition, do you have serious difficulty concentrating, remembering, or making decisions? Answer Entry Date Author Status No 09/06/2020 12:55 AM CDT Della Tejada RN Active documented in this encounter Plan of Treatment Not on file documented as of this encounter Visit Diagnoses Not on filedocumented in this encounter Additional Health Concerns Infection Onset Date Last Indicated Resolved Time COVID-19 Rule Out 10/13/2023 10/13/2023 10/13/2023 4:24 AM CDT documented as of this encounter Care Teams Rocket Assembly Operator Relationship Specialty Start Date End Date Justen Gale MD [facility]. [place] [address] [place] [address] PCP - General FAMILY PRACTICE 08/20/[address] [facility]. [address] [place] [address] José Luis Research Phlebotomist CARDIOVASCULAR DISEASE 04/24/16 documented as of this encounter
--- OUTSIDE RECORDS SUMMARY | 2024-04-26 02:40 | XMS_ITS | Encounter Summary ---
Author Organization [facility] Address [address] [place] [address]. [place] [address] [place] [address] Care Team Providers Care Digitizer Name Role Phone Meena Bansal MD Unavailable [phone] Justen Gale MD Primary Care Provider [phone] Encounter Details Date Type Department Care Team (Latest Contact Info) Description 05/22/2021 Travel Social History Tobacco Use Types Packs/Day [...] Sexual Orientation Straight 03/18/2018 3: 01 AM RELIABILITY ENGINEER COVID-19 Exposure Response Date Recorded In the last month, have you been in contact with someone who was confirmed or suspected to have Coronavirus / COVID-19? No / Unsure 05/22/2021 5:44 PM RELIABILITY ENGINEER documented as of this encounter Functional Status [...] Last Indicated Resolved Time COVID-19 Rule Out 05/22/2021 05/22/2021 05/22/2021 10:12 PM RELIABILITY ENGINEER documented as of this encounter Care Teams Digitizer Relationship Specialty Start Date End Date Justen Gale MD [facility]. [address] [address] PCP - General FAMILY PRACTICE 08/20/17 Meena Bansal MD [facility]. [facility] [address] [place] [address] José Luis Merchandise Adjustment Clerk CARDIOVASCULAR DISEASE 04/24/16 documented as of this encounter
--- OUTSIDE RECORDS SUMMARY | 2024-04-26 02:40 | XMS_ITS | Encounter Summary ---
Author Organization [facility] Address [address] [place] [address]. [place] [address] [place] [address] Care Team Providers Care Log Cut Off Sawyer Name Role Phone Meena Bansal MD Unavailable [phone] Justen Gale MD Primary Care Provider [phone] Reason for Visit * Reason Comments Shortness Of Breath * Auth/Cert (Routine) Specialty Diagnoses / Procedures Referred By Elyssa benavides Referred To Contact Diagnoses Pneumonia CAP (community acquired pneumonia) Procedures NONE Peggy Bland MD [address] [facility] [place] [address] Phone: tel: fax: Referral ID Status Reason Start Date Expiration Date Visits Re quested Visits Authorized [id number] 1 1 Encounter Details Date Type Department Care Team (Late st Contact Info) Description 10/13/2023 12:38 AM CDT - 10/13/2023 5:16 AM CDT Emergency [facility] [place] [address] Adriel Shepherd MD,PHD [address] [place] [address] [id number] Shortness Of Breath Discharge Disposition: Home or Self Care (Routine Discharge) Social History Tobacco Use Types Packs/Day Years Used Date Smoking Tobacco: Former Cigarettes 0.3 2 1 05/23/1974 - 03/23/1977 Smokeless Tobacco: Never Alcohol Use Standard Drinks/Week Comments No 0 (1 standard drink = 0.6 oz pur e alcohol) [facility] Utilities Answer Date Recorded In the past 12 months has e electric, gas, oil, or water company threatened to shut off services in your [...] any time in the past 12 m [facility], were you homeless or living in a longterm (including now)? No 10/13/2023 Comments No Sex and Gender Information Value Date Recorded Sex Assigned at Female 09/06/2020 12:50 AM CDT Legal Sex Female 10:47 AM CDT Gender Identity Female 09/06/2020 12:50 AM CDT Sexual Orientation Straight 03/18/2018 3: 01 AM [employer] documented as of this encounter Last Filed Vital Signs Vital Sign Reading Time Taken Comments Blood Pressure 154/78 10/13/2023 4:59 AM CDT Pulse 70 10/13/2023 4:59 AM CDT Temperature 36.6 ??C (97.9 ??F) 10/13/2023 12:29 AM C DT Respiratory Rate 10/13/2023 4:59 AM CDT Oxygen Saturation 98% 10/13/2023 4:59 AM CDT Inhaled Oxygen Concentration - - Weight 119.7 kg (264 lb) 10/13/2023 12:29 AM CDT Height 154.9 cm (5' 1 ) 10/13/2023 12:29 AM CDT Body Mass Index 49.88 10/13/2023 12:29 AM CDT documented in this encounter Functional [...] cannot be sent through Care Everywhere. * Community-acquired pneumonia in adults (Bengali) documented in this encounter Medications at Time of Discharge albuterol sulfate HFA 108 (90 Base) MCG/ACT inhaler Inhale 2 puffs into the lungs every 4 (four) hours as needed for Wheezing or Shortness of breath. 8 g 1 exemestane 25 MG tablet Take 1 tablet by mouth daily with supper. Give with food 3 8 gabapentin (NEURONTIN) 300 MG capsule Take 1 capsule (300 mg total) by mouth 3 (three) times daily. 4 HYDROcodone-acetami nophen (NORCO) 10-325 MG tablet Take [...] 1 unit for every 15 mg/dl >140 methenamine (HIPREX) 1 g tablet Take 1 tablet (1 g total) by mouth 2 (two) times daily. 4 naloxone 4 MG/0.1ML nasal spray 1 spray by Nasal route as needed for Opioid reversal. 2 ondansetron 4 MG disintegrating tablet Take 1 tablet (4 mg total) by mouth every 8 (eight) hours as needed for Nausea. 20 tablet 2 oxybutynin XL (DITROPAN XL) 15 MG 24 hr tablet Take 1 tablet (15 mg total) by mouth daily. 4 PULSE OXIMETER, DME, Please use the pulse [...] mg total) by mouth every evening. 1 amoxicillin-clavula jany (AUGMENTIN) 875-125 MG tablet Take 1 tablet (875 mg total) by mouth 2 (two) times daily for 4 days. 8 tablet 4 10/18/19 documented as of this encounter ED Notes * Adriel Shepherd MD,PHD - 10/13/2023 3:50 AM CDT EMERGENCY DEPARTMENT ENCOUNTER Chief Complaint Chief Complaint Patient presents with Shortness Of Breath History of Present Illness The patient is a 68-year-old female who presents to the ED for evaluation of shortness of breath. Patient reports that she has had intermittent shortness of breath for the past month. This morning, patient reports her sugar dropping and constant shortness of breath since. She notes calling her doctor who then instructed her to come to the ED. she does states she has been coughing for the last fewdays. Physical Exam Filed Vitals: 10/13/23 0029 BP: (!) 137/106 Pulse: 72 Resp: 19 Temp: 97.9 ??F (36.6 ??C) TempSrc: Oral SpO2: 100% Weight: 119.7 kg (264 lb) Height: 1.549 m (5' 1 ) CONSTITUTIONAL: Patient is awake, alert, in no acute distress, conversant HEAD AND FACE: Normocephalic, atraumatic EYES: Normal sclera, extraocular motions grossly normal NECK: Supple, no obvious asymmetry CARDIOVASCULAR: Regular rate and rhythm RESPIRATORY: No respiratory distress or tachypnea, no wheezing or crackles ABDOMEN: Soft, nontender, nondistended, NEUROLOGIC: GCS 15, CN2-12 grossly intact, moves all extremities EXTREMITIES: Warm, no edema Diagnostic Studies / Procedures LABORATORY STUDIES: Results for orders placed or performed during the hospital encounter of 10/13/23 CBC W/DIFF AUTOMATED Result Value Ref Range WBC 10.53 4.5 - 11.0 x10'3/uL RBC 4.61 4.20 - 5.40 x10'6/uL HGB 12.9 12.0 - 16.0 G/DL HCT 41.9 38.0 - 48.0 % MCV 90.9 81.0 - 99.0 FL MCH 28.0 27.0 - 31.0 PG MCHC 30.8 (L) 32.0 - 36.0 G/DL RDW 13.9 11.5 - 14.5 % PLT 282 130 - 400 x10'3/uL MPV 9.9 9.3 - 12.2 FL DIFFERENTIAL TYPE AUTOMATED DIFFERENTIAL NEUTROPHILS 59.8 % LYMPHOCYTES 29.8 % MONOCYTES 6.8 % EOSINOPHILS 2.7 % BASOPHILS 0.5 % IMMATURE GRANS 0.4 % ABS. NEUTROPHILS 6.30 1.80 - 7.70 x10'3/uL ABS. LYMPHOCYTES 3.14 1.00 - 4.80 x10'3/uL ABS. MONOCYTES 0.72 0.24 - 0.86 x10'3/uL ABS. EOSINOPHILS 0.28 0.04 - 0.36 x10'3/uL ABS. BASOPHILS 0.05 0.01 - 0.08 x10'3/uL ABS. IMMATURE GRANULOCYTES 0.04 0.00 - 0.49 x10'3/uL COMPREHENSIVE METABOLIC PANEL Result Value Ref Range GLUCOSE 160 (H) 70 - 99 MG/DL BUN 16 7 - 18 MG/DL CREATININE S/P/B 0.85 0.55 - 1.02 MG/DL SODIUM S/P/B 138 136 - 145 MMOL/L POTASSIUM S/P/B 3.9 3.5 - 5.1 MMOL/L CHLORIDE S/P/B 104 100 - 108 MMOL/L CO2 29.9 21 - 32 MMOL/L CALCIUM S/P/B 9.4 8.5 - 10.1 MG/DL BILIRUBIN TOTAL S/P/B 0.4 0.2 - 1.2 MG/DL TOTAL PROTEIN S/P/B 8.2 6.4 - 8.2 G/DL ALBUMIN S/P/B 3.1 (L) 3.4 - 5.0 G/DL AST 16 15 - 37 U/L ALT 22 14 - 55 U/L ALKALINE PHOSPHATASE S/P/B 83 50 - 136 U/L ANION GAP 4.1 (L) 5 - 15 MMOL/L BUN CREATININE RATIO 18.8 6 - 26 A/G RATIO 0.6 (L) 1.0 - 2.0 RATIO GFR ESTIMATE 75 (L) >90 ML/MIN/1.73 M2 TROPONIN, QUANT Result Value Ref Range TROPONIN I HIGH SENSITIVITY 8 <54 ng/L PRO-BRAIN NATRIURETIC PEPTIDE Result Value Ref Range PRO-B TYPE NATRIURETIC PEPTIDE 65 <125 PG/ML TROPONIN, QUANT Result Value Ref Range TROPONIN I HIGH SENSITIVITY 7 <54 ng/L CORONAVIRUS (COVID 19) Specimen: NASAL Result Value Ref Range CORONAVIRUS SARS COV 2 RNA NEGATIVE NEGATIVE Specimen Type NASAL INFLUENZA A & B, RAPID Specimen: NASOPHARYNGEAL SWAB Result Value Ref Range Specimen Type NASAL INFLUENZA A NEGATIVE NEGATIVE INFLUENZA B NEGATIVE NEGATIVE IMAGING STUDIES XR CHEST PORTABLE Final Result by User, [email or web address] (10/12 010) EXAMINATION: XR CHEST PORTABLE, 10/13/2023 1:05 AM TECHNIQUE: AP radiograph of the chest HISTORY: Dyspnea, nausea COMPARISON: Chest radiograph 10/26/2021 FINDINGS: Mild leftward rotation of the chest. Multiple leads overlying the chest. Spinal cord stimulator paddle projecting over the mid to lower thoracic spine. Superimposition of shadows at the left lung base. Suggestion of reticular opacities within the left midlung and left lung base which may be seen with atelectasis and/or pneumonia. No pleural effusion. No pneumothorax. IMPRESSION: Suggestion of reticular opacities within the left midlung and left lung base which may be seen with atelectasis and/or pneumonia. Less likely superimposition of shadows/artifact could be considered given chest position. Short-term interval follow-up could be beneficial for further characterization. Referred By: Interpreted By: Jeremías Gallegos MD, 10/13/2023 1:05 AM ED Course / Medical Decision Making Patient presenting with a chief complaint of shortness of breath The patient has multiple chronic illnesses impacting their care and general health, including arthritis, breast cancer, diabetes mellitus, hypertension, neuropathy, pulmonary thromboembolism, deep venous thrombosis, and disease of thyroid gland. I reviewed the patient's labs, which are significant for mild hyperglycemia on CMP. Two high sensitivity troponins are not elevated without significant delta. BNP is not elevated. Her CMP is unremarkable. I reviewed the radiologist's interpretation of the patient's radiologic diagnostics. Nonspecific changes of the left lung base and midlung are demonstrated. 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 Additionally a diagnosis of a pulmonary embolism would be unlikely to policy change clerk given that the patient is anticoagulated, not hypoxic, and hemodynamically stable. A CTA of the chest was considered but deemed to be unlikely to policy change clerk and thus not ordered. Acute coronary syndrome was ruled out. Patient is in no respiratory distress objectively. She is not tachypneic and 98% on room air. She does not have SIRS criteria and thus is not septic. Outpatient therapy for pneumonia his deemed appropriate. Clinical Impression Community acquired pneumonia (Primary) Current Discharge Medication List START taking these medications Details Lefamulin Acetate 600 MG Tab Take 600 mg by mouth every 12 (twelve) hours for 10 days. Qty: 20 tablet, Refills: 0 Class: Eprescribe [id number] &[place] ( #: [phone]) Disposition: Discharge home Patient provided with printed and verbal discharge care instructions and was instructed to return to the emergency department immediately with worsening symptoms or new worrisome symptoms. Patient was instructed to follow-up with primary care physician within 1 week for further evaluation and treatment. Diagnoses & treatment discussed with patient Patient expressed understanding and agreed. Adriel Shepherd MD,PHD 10/13/23 0806 * Matt Santana RN - 10/13/2023 12:25 AM CDT Pt to ed with c/o sob. States sx's have been intermittent for the past month. States todays episodestarted this morning after her sugar dropped to 64. Reports has not felt normal since. Also c/o nausea. Pt a&ox4, pt able to talk in complete sentences at this time, no signs of respiratory distress noted. documented in this encounter Plan of Treatment Not on file documented as of this encounter Procedures Procedure Name Priority Date/Time Associated Diagnosis Comments CORONAVIRUS (COVID 19) STAT 3:41 AM CDT PRO-BRAIN NATRIURETIC PEPTIDE Routine 10/13/2023 3:40 AM CDT INFLUENZA A & B STAT 10/13/2023 3:40 AM CDT TROPONIN, QUANT STAT 10/13/2023 3:40 AM CDT XR CHEST PORTABLE STAT 10/13/2023 1:0 5 AM CDT ECG 12-LEAD Routine 10/13/2023 1:02 AM CDT COMPREHENSIVE METABOLIC PANEL STAT 10/13/2023 12:55 AM CDT CBC W/DIFF AUTOMATED STAT 10/13/2023 12:55 AM CDT TROPONIN, QUANT STAT 10/13/2023 12:55 AM CDT documented in this encounter Results * CORONAVIRUS (COVID 19) (10/13/2023 3:41 AM CDT) CORONAVIRUS SARS COV 2 RNA NEGATIVE NEGATIVE 10/13/2023 4:24 AM CDT [facility] Comment: NEGATIVE RESULTS DO NOT RULE OUT COVID 19 AND SHOULD NOT BE USED THE SOLE BASIS FOR TREATMENT OR PATIENT MANAGEMENT DECISIONS, INCLUDING INFECTION CONTROL DECISIONS. NEGATIVE RESULTS SHOULD BE CONSIDERED IN THE CONTEXT OF A PATIENT'S RECENT EXPOSURES, HISTORY AND THE PRESENCE OF CLINICAL SIGNS AND SYMPTOMS CONSISTENT WITH COVID 19. THE ID NOW COVID-19 2.0 TEST HAS BEEN AUTHORIZED BY THE FDA UNDER EAU FOR USE BY AUTHORIZED LABORATORIES. PERFORMED BY NUCLEIC ACID AMPLIFICATION FOR MOLECULAR QUALITATIVE DETECTION OF SARS-COV-2. SPECIMEN TYPE NASAL 10/13/2023 3:41 AM CDT [facility] NASAL STRUCTURE / Unknown 10/13/2023 3:41 AM CDT Adriel Shepherd MD,PHD MICROBIOLOGY - GENERAL ORD ERABLES Final Result [facility] [address] [place] [address], [place] [phone] * TROPONIN, QUANT (10/13/2023 3:40 AM CDT) TROPONIN I HIGH SENSITIVITY 7 <54 ng/L 10/13/2023 4:35 AM CDT [facility] Comment: HIGH DOSES OF BIOTIN, TROPONIN-SPECIFIC AUTOANTIBODIES, AND ANTIBODY THERAPY CONTAINING HAMA MAY INTERFERE WITH THIS TEST RESULT. CORRELATION TO CLINICAL HISTORY AND PRESENTATION RECOMMENDED. 10/13/2023 3:40 AM CDT Adriel Shepherd MD,PHD LABORATORY Final Resu lt Performing Organization Address City/[facility]/ZIP Co de Phone Number [facility] [address] [place] [address], [place] [phone] * INFLUENZA A & B, RAPID (10/13/2023 3:40 AM CDT) SPECIMEN TYPE NASAL 10/13/2023 3:58 AM CDT [facility] INFLUENZA A NEGATIVE NEGATIVE 10/13/2023 4:24 AM CDT [facility] INFLUENZA B NEGATIVE NEGATIVE 10/13/2023 4:24 AM CDT [facility] Comment: Interpretation: Negative for Influenza [...] a separate order. NASOPHARYNGEAL SWAB / Unknown 10/13/2023 3:40 AM CDT us Adriel Shepherd MD,PHD MICROBIOLOGY - GENERAL ORD ERABLES Final Result Performing Organization Address [facility] Co de Phone Number [facility] [address] [place] [address], [place] [phone] * PRO-BRAIN NATRIURETIC PEPTIDE (10/13/2023 3:40 AM CDT) PRO-B TYPE NATRIURETIC PEPTIDE 65 <125 PG/ML 10/13/2023 4:35 AM CDT [facility] Comment: CUT POINTS ESTABLISHED BY INTERNATIONAL [...] OF 89% AND 72% FOR ACUTE CHF. 10/13/2023 3:40 AM CDT us Adriel Shepherd MD,PHD LABORATORY Final Resu lt Performing Organization Address City/[facility] Co de Phone Number [facility] [address] [place] [address], [place] [phone] * XR CHEST PORTABLE (10/13/2023 1:05 AM CDT) Anatomical Region Laterality Modality Chest Radiographic Lizeth ging 10/13/2023 1:05 AM CDT Impressions 10/13/2023 1:07 AM CDT IMPRESSION: Suggestion of reticular opacities within the left midlung and left lung base which may be seen with atelectasis and/or pneumonia. ??Less likely superimposition of shadows/artifact could be considered given chest position. ??Short-term interval follow-up could be beneficial for further characterization. Referred By: ?? Interpreted By: Jeremías Gallegos MD, 10/13/2023 1:05 AM Narrative 10/13/2023 1:07 AM CDT EXAMINATION: XR CHEST PORTABLE, 10/13/2023 1:05 AM TECHNIQUE: AP radiograph of the chest HISTORY: Dyspnea, nausea COMPARISON: Chest radiograph 10/26/2021 FINDINGS: Mild leftward rotation of the chest. ??Multiple leads overlying the chest. ??Spinal cord stimulator paddle projecting over the mid to lower thoracic spine. ??Superimposition of shadows at the left lung base. ??Suggestion of reticular opacities within the left midlung and left lung base which may be seen with atelectasis and/or pneumonia. ??No pleural effusion. ??No pneumothorax. Procedure Note Jeremías Gallegos MD - 10/13/2023 EXAMINATION: XR CHEST PORTABLE, 10/13/2023 1:05 AM TECHNIQUE: AP radiograph of the chest HISTORY: Dyspnea, nausea COMPARISON: Chest radiograph 10/26/2021 FINDINGS: Mild leftward rotation of the chest. Multiple leads overlyingthe chest. Spinal cord stimulator paddle projecting over the mid to lowerthoracic spine. Superimposition of shadows at the left lung base.Suggestion of reticular opacities within the left midlung and left lungbase which may be seen with atelectasis and/or pneumonia. No pleuraleffusion. No pneumothorax. IMPRESSION: Suggestion of reticular opacities within the left midlung and left lungbase which may be seen with atelectasis and/or pneumonia. Less likelysuperimposition of shadows/artifact could be considered given chestposition. Short-term interval follow-up could be beneficial for furthercharacterization. Referred By: Interpreted By: Jeremías Gallegos MD, 10/13/2023 1:05 AM Angle Mc PA GENERAL IMAGING Final Result * ECG 12 lead (10/13/2023 1:02 AM CDT) 10/13/2023 1:02 AM CDT Narrative [facility] - 10/14/2023 11:40 AM CDT ?[facility] ? [address] ? Test Date: ?2023-10-13 Pat Name: ? MOHSEN MARQUES ?Department: ?? 41 ? Room: ? Gender: ? Female ? 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 [id number] : ?1955 ? Requested By: ANGLE MC Order Number: [id number] ? Reading MD: ?? Karlos Amor ? Measurements Intervals ?[place] ? Rate: ? 65 ? P: ?22 ID: ? [id number] ?QRS: ?-4 QRSD: ? 92 ? T: ?24 QT: ? 402 ? QTc: ?421 ? Interpretive Statements SINUS RHYTHM INCOMPLETE RIGHT BUNDLE BRANCH BLOCK ??[90+ ms QRS DURATION, TERMINAL R IN V1/V2, 40+ ms S IN I/aVL/V4/V5/V6] SEPTAL MYOCARDIAL INFARCTION , OF INDETERMINATE AGE [40+ ms Q WAVE IN V1/V2] Compared to ECG 10/26/2021 19:11:00 Incomplete right bundle-branch block now present Myocardial infarct finding now present T-wave abnormality no longer present Procedure Note Karlos Amor MD - [facility] Test Date: 2023-10-13 Pat Name: MOHSEN MARQUES Department: 41 Room: Gender: Female Professor Of Special Education: [id number] : 1955 Requested By: ANGLE MC Order Number: [id number] Felipe MD: Karlos Amor Measurements Intervals [place] Rate: 65 P: 22 ID: [id number] QRS: -4 QRSD: 92 T: 24 QT: 402 QTc: 421 Interpretive Statements SINUS RHYTHM INCOMPLETE RIGHT BUNDLE BRANCH BLOCK [90+ ms QRS DURATION, TERMINAL RIN V1/V2, 40+ ms S IN I/aVL/V4/V5/V6] SEPTAL MYOCARDIAL INFARCTION , OF INDETERMINATE AGE [40+ ms Q WAVE INV1/V2] Compared to ECG 10/26/2021 19:11:00 Incomplete right bundle-branch block now present Myocardial infarct finding now present T-wave abnormality no longer present [facility]le [facility]KEON ECG ORDERABLES Final Result [facility] * TROPONIN, QUANT (10/13/2023 12:55 AM CDT) [facility] TROPONIN I HIGH SENSITIVITY 8 <54 ng/L 10/13/2023 1:43 AM CDT [facility] Comment: HIGH DOSES OF BIOTIN, TROPONIN-SPECIFIC AUTOANTIBODIES, AND ANTIBODY THERAPY CONTAINING HAMA MAY INTERFERE WITH THIS TEST RESULT. CORRELATION TO CLINICAL HISTORY AND PRESENTATION RECOMMENDED. 10/13/2023 12:5 5 AM CDT [facility] LABORATORY Final Result Performing Organization Address [facility]/ZIP Co de Phone Number [facility] [address] [place] [address], [place] [phone] * (ABNORMAL) COMPREHENSIVE METABOLIC PANEL (10/13/2023 12:55 AM CDT) Pathologist [facility] GLUCOSE 160(H) 70 - 99 MG/DL 10/13/2023 1:43 AM CDT [facility] BUN 16 7 - 18 MG/DL 10/13/2023 1:43 AM CDT [facility] CREATININE S/P/B 0.85 0.55 - 1.02 MG/DL 10/13/2023 1:43 AM CDT [facility] SODIUM S/P/B 138 136 - 145 MMOL/L 10/13/2023 1:43 AM CDT [facility] POTASSIUM S/P/B 3.9 3.5 - 5.1 MMOL/L 10/13/2023 1:43 AM T [facility] CHLORIDE S/P/B 104 100 - 108 MMOL/L 10/13/2023 1:43 AM CDT [facility] CO2 29.9 21 - 32 MMOL/L 10/13/2023 1:43 AM T [facility] CALCIUM S/P/B 9.4 8.5 - 10.1 MG/DL 10/13/2023 1:43 AM T [facility] BILIRUBIN TOTAL S/P/B 0.4 0.2 - 1.2 MG/DL 10/13/2023 1:43 AM T [facility] Comment: THIS ASSAY IS NOT RECOMMENDED FOR PATIENTS UNDERGOING TREATMENT WITH ELTROMBOPAG DUE TO THE POTENTIAL FOR FALSELY ELEVATED RESULTS. TOTAL PROTEIN S/P/B 8.2 6.4 - 8.2 G/DL 10/13/2023 1:43 AM T [facility] ALBUMIN S/P/B 3.1(L) 3.4 - 5.0 G/DL 10/13/2023 1:43 AM T [facility] AST 16 15 - 37 U/L 10/13/2023 1:43 AM T [facility] ALT 22 14 - 55 U/L 10/13/2023 1:43 AM T [facility] ALKALINE PHOSPHATASE S/P/B 83 50 - 136 U/L 10/13/2023 1:43 AM T [facility] ANION GAP 4.1(L) 5 - 15 MMOL/L 10/13/2023 1:43 AM T [facility] BUN CREATININE RATIO 18.8 6 - 26 10/13/2023 1:43 AM CDT [facility] A/G RATIO 0.6(L) 1.0 - 2.0 RATIO 10/13/2023 1:43 AM CDT [facility] GFR ESTIMATE 75(L) >90 ML/MIN/1.7 3 M2 10/13/2023 1:43 AM CDT [facility] Comment: NOTE: eGFR is not calculated for patients <18 years of age. This is an estimated GFR calculation using the new CKD EPI creatinine equation without race and so does not require a correction factor for race. This estimated GFR should not be used for calculating drug doses. 10/13/2023 12:5 5 AM CDT [facility] Final Result [facility] [address] [place] [address], [place] [phone] * (ABNORMAL) CBC W/DIFF AUTOMATED (10/13/2023 12:55 AM CDT) WBC 10.53 4.5 - 11.0 x10'3/uL 10/13/2023 1:17 AM CDT [facility] RBC 4.61 4.20 - 5.40 x10'6/uL 10/13/2023 1:17 AM CDT [facility] HGB 12.9 12.0 - 16.0 G/DL 10/13/2023 1:17 AM CDT [facility] HCT 41.9 38.0 - 48.0 % 10/13/2023 1:17 AM CDT [facility] MCV 90.9 81.0 - 99.0 FL 10/13/2023 1:17 AM CDT [facility] MCH 28.0 27.0 - 31.0 PG 10/13/2023 1:17 AM CDT [facility] MCHC 30.8(L) 32.0 - 36.0 G/DL 10/13/2023 1:17 AM CDT [facility] RDW 13.9 11.5 - 14.5 % 10/13/2023 1:17 AM CDT [facility] PLT 282 130 - 400 x10'3/uL 10/13/2023 1:17 AM CDT [facility] MPV 9.9 9.3 - 12.2 FL 10/13/2023 1:17 AM CDT [facility] DIFFERENTIAL TYPE AUTOMATED DIFFERENTIAL 10/13/2023 1:17 AM T [facility] NEUTROPHILS % 59.8 % 10/13/2023 1:17 AM CDT [facility] LYMPHOCYTES % 29.8 % 10/13/2023 1:17 AM CDT [facility] MONOCYTES % 6.8 % 10/13/2023 1:17 AM CDT [facility] EOSINOPHILS 2.7 % 10/13/2023 1:17 AM CDT [facility] BASOPHILS 0.5 % 10/13/2023 1:17 AM CDT [facility] IMMATURE GRANS % 0.4 % 10/13/19 1:17 AM CDT [facility] ABS. NEUTROPHILS 6.30 1.80 - 7.70 x10'3/uL 10/13/2023 1:17 AM CDT [facility] ABS. LYMPHOCYTES 3.14 1.00 - 4.80 x10'3/uL 10/13/2023 1:17 AM CDT [facility] ABS. MONOCYTES 0.72 0.24 - 0.86 x10'3/uL 10/13/2023 1:17 AM CDT [facility] ABS. EOSINOPHILS 0.28 0.04 - 0.36 x10'3/uL 10/13/2023 1:17 AM CDT [facility] ABS. BASOPHILS 0.05 0.01 - 0.08 x10'3/uL 10/13/2023 1:17 AM CDT [facility] ABS. IMMATURE GRANULOCYTES 0.04 0.00 - 0.49 x10'3/uL 10/13/2023 1:17 AM CDT [facility] 10/13/2023 12:5 5 AM CDT [facility] Final Result [facility] [address] [place] [address], documented in this encounter Visit Diagnoses Diagnosis Community acquired pneumonia- Primary Pneumonia, organism unspecified documented in this encounter Administered Medications Inactive Administered Medications - up to 3 most recent administrations Medication Order MAR Action Action Date Dose Rate Site HYDROcodone-acetaminophen (NORCO) 7.5-325 MG tablet 1 tablet 1 tablet, Oral, Once, 1 dose, On Mon10/13/23 at 0445, Maximum dose of acetaminophen is 4000 mg from all sources in 24 hours. Given 10/13/2023 4:37 AM CDT 1 tablet documented in this encounter Active and Recently Administered Medications Times are shown in CDT. Scheduled Medication Order 10/11/2023 10/12/2023 10/13/2023 HYDROcodone-acetaminophen (NORCO) 7.5-325 MG tablet 1 tablet (COMPLETED) 1 tablet, Oral, Once, 1 dose, On Mon10/13/23 at 0445, Maximum dose of acetaminophen is 4000 mg from all sources in 24 hours. 0437 (Given - Provid er: Justen Antunez RN) documented in this encounter Additional Health Concerns Infection Onset Date Last Indicated Resolved Time COVID-19 Rule Out 10/13/2023 10/13/2023 10/13/2023 4:24 AM CDT documented as of this encounter Care Teams Log Cut Off Sawyer Relationship Specialty Start Date End Date Justen Gale MD [facility]. [address] [address] PCP - General FAMILY PRACTICE 08/20/17 [facility] [facility]. [address] [id number] [place] [employer] CARDIOVASCULAR DISEASE 04/24/16 documented as of this encounter
--- OUTSIDE RECORDS SUMMARY | 2024-04-26 02:40 | XMS_ITS | Encounter Summary ---
Author Organization [facility] Address [address] [place] [address]. 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 Name Role Phone Meena Bansal MD Unavailable [phone] Gerardo Hoffman MD Primary Care Provider [phone] Reason for Referral * (Routine) - Canceled Specialty Diagnoses / Procedures Referred By Elyssa benavides Referred To Contact Procedures PT eval and treat Nanda Pineda MD 1 [place] [address] Phone: tel: fax: Referral ID Status Reason Start Date Expiration Date V isits Requested Visits Authorized [id number] Canceled 10/14/2023 10/13/2024 1 1 Reason for Visit * Reason Comments Medical Problem * Auth/Cert (Routine) Specialty Diagnoses / Procedures Referred By Elyssa benavides Referred To Contact Diagnoses Pneumonia CAP (community acquired pneumonia) Procedures NONE Nanda Pineda MD 1 [place] [address] Phone: tel: fax: Referral ID Status Reason Start Date Expiration Date Visits Re quested Visits Authorized [id number] 1 1 Encounter Details Date Type Department Care Team (Latest Contact Info) Description 10/13/2023 6:02 PM CDT - 10/14/2023 12:40 PM CDT Hospital Encounter [facility] Clinical [place] [address] Peter Schwartz MD 1 [place] [address] Nanda Pineda MD [address] [facility] [place] [address] Janeth Valdez MD 1 [place] [address] Medical Problem Discharge Disposition: Home or Self Care (Routine Discharge) Social History Tobacco Use Types Packs/Day Years Used Date Smoking Tobacco: Former Cigarettes 0.3 2 1 05/23/1974 - 03/23/1977 Smokeless Tobacco: Never Alcohol Use Standard Drinks/Week Comments No 0 (1 standard drink = 0.6 oz pur e alcohol) [facility] Utilities Answer Date Recorded In the past 12 months [facility], gas, oil, or water [employer] threatened to shut off services in your [...] any time in the past [address] [facility], were you homeless or living in a long term (including now)? 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 Yes 10/13/2023 9:26 PM Dashawn Calhoun RN Ac tive * Question Answer Date of Assessment Author Status Do you have difficulty dressing or bathing? Yes 10/13/2023 9:26 PM Dashawn Calhoun R N Active Because of a physical, mental, or emotional condition, do you have difficulty doing errands alone such as visiting a doctor's office or shopping? No 10/13/2023 9:26 PM Dashawn Calhoun RN Act hugh * Are you deaf or do you have serious difficulty hearing Answer Date of Assessment Author Status No 10/13/2023 9:26 PM Dashawn Calhoun RN Active * Are you blind or [...] or making decisions? No 10/13/2023 9:26 PM Dashawn Calhoun R N Active * Because of a physical, mental, or emotional condition, do you have serious difficulty concentrating, remembering, or making decisions? Answer Entry Date Author Status No 10/13/2023 9:26 PM Dashawn Calhoun RN Active documented in this encounter Discharge Summaries * Janeth Valdez MD - 10/14/2023 8:53 AM CDT Images from the original note were not included. Hospitalist Discharge Summary Patient ID: Mohsen Marques. female. 1955. Admit date: 10/13/2023 6:02 PM Discharge date and time: 10/14/23 Admitting Physician: Nanda Pineda MD Primary Care Physician: GERARDO HOFFMAN MD Discharge Physician: Janeth Valdez MD Hospital Diagnosis: CAP (community acquired pneumonia) Pneumonia Admission Condition: good Discharged Condition: Good Code Status: Full Code Indication for Admission: Chief Complaint Patient presents with Medical Problem Readmission/Mortality Score at discharge: Low 0-28, Medium 29-58, High >59 LACE+ Score *This score is based on incomplete data Readmission Score: 52* Male Patient: - Urgent Admission: 15 Discharge Institution: - Length of Stay: 2 Alternative Level of Care Status: 0 ED Visits in Previous 6 Months: 3 Elective Admission in Previous Year: 0 Comorbidity Score (by age & number of urgent admissions): 32 - This score is not calculated because of inadequate data HPI per admitting physician: 68 yo female with PMH of HTN, breast CA s/p bilateral mastectomy and radiation in remission, IDDM, frequent UTI's, DVT/PE on xarelto, restless leg syndrome, chronic pain syndrome (on high dose of Marianna) who presents for evaluation of cough generalized weakness and fever at home. She was seen in [facility] yesterday, diagnosed with PNA, prescibed Xentela(lefamulin), but was unable to find this medication in any pharmacy around. Patient has multiple allergies noted in the medical record, most serious is anaphylactic reaction to cephalosporins. The rest is mostly intolerance or rashes. The patient was started on meropenem , premedicated with Benadryl(this was discussed with pharmacy). The patient tolerated Meropenem without difficulties. Hospital Course: CAP presents with cough generalized weakness and fever at home. Chest x-ray is consistent with left lung pneumonia, see full report Meropenem (multiple allergies noted in MR, most serious anaphylaxis with cephalosporins,) premedicated with Benadryl albuterol inhaler symptomatic therapy for cough PRN IS at bedside WBC 11.6 Pt was given a dose of Clarithromycin and experienced an episode of shortness of breath. From a PNAstandpoint patient did not have any O2 requirement and clinically appeared well. Will discharge home on Augmentin. 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 Return precautions and therapeutic plan were discussed with patient in detail, and patient voiced understanding andagreement. All questions were answered and patient was subsequently discharged home. 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 : 1955 Requested By: NESSA SINGLETON Order Number: [id number] Reading MD: Measurements Intervals [place] Rate:65 P: 22 MI: 143 QRS: -4 QRSD: 92 T: 24 QT: 402 QTc: 421 Interpretive Statements SINUS RHYTHM INCOMPLETE RIGHT BUNDLE BRANCH BLOCK [90+ ms QRS DURATION, TERMINAL R IN V1/V2, 40+ ms S IN I/aVL/V4/V5/V6] SEPTAL MYOCARDIAL INFARCTION , OF INDETERMINATE AGE [40+ ms Q WAVE IN V1/V2] Compared to ECG 10/26/2021 19:11:00 Incomplete right bundle-branch block now present Myocardial infarct finding now present T-wave abnormality no longer present XR CHEST PORTABLE Result Date: 10/13/2023 EXAMINATION: XR CHEST PORTABLE, 10/13/2023 1:05 [...] By: Jeremías Gallegos MD, 10/13/2023 1:05 AM Discharge Exam: Filed Vitals: 10/13/23 2320 10/14/23 0221 10/14/23 0755 10/14/23 1102 BP: 133/84 123/72 Pulse: 69 64 Resp: 15 18 Temp: TempSrc: SpO2: 97% 95% 97% Weight: Height: -GENERAL: No acute distress, Well nourished -HEAD: Normocephalic, Atraumatic -EYES: Extraocular movements intact -LUNGS: Effort normal. Clear to auscultation bilaterally, No wheezes, No crackles, No ronchi -CVS: Regular rate and rhythm, S1 and S2 normal -ABDOMEN: Soft, Non tender, Non distended -EXT: No edema -NEURO: Awake, alert, oriented, No gross neuro deficits -SKIN: No significant rashes Discharge Medications: Medication List START taking these medications Morning Afternoon Evening Bedtime As Needed amoxicillin-clavulanate 875-125 MG tablet Commonly known as: AUGMENTIN Take 1 tablet (875 mg total) by mouth 2 (two) times daily for 4 days. Signed by: Dr. Janeth Valdez CONTINUE taking these medications Morning Afternoon Evening Bedtime As Needed albuterol sulfate HFA 108 (90 Base) MCG/ACT inhaler Inhale 2 puffs into the lungs every 4 (four) hours as needed for Wheezing or Shortness of breath. Signed by: Dr. Jaswinder Gaytan exemestane 25 MG tablet Commonly known as: AROMASIN Take 1 tablet by mouth daily with supper. Give with food gabapentin 300 MG capsule Commonly known as: NEURONTIN Take 1 capsule (300 mg total) by mouth 3 (three) times daily. Last time this was given: 300 mg on October 14, 2023 8:04 AM Last time this was given: October 14, 2023 8:04 AM HYDROcodone-acetaminophen 10-325 MG tablet Commonly known as: NORCO Take 1 tablet by mouth every 6 (six) hours as needed. Last time this was given: 1 tablet on October 14, 2023 10:31 AM Last time this was given: October 14, 2023 10:31 AM insulin lispro 100 UNIT/ML injection (VIAL) Commonly known as: HUMALOG Inject 28 Units into the skin see administration instructions. 28 units before breakfast. 28 units before lunch. 28 units before dinner. Patient also uses sliding scale: BS>140, add 1 unit for every 15 mg/dl >140 Last time this was given: Ask your nurse or doctor Last time this was given: Ask your nurse or doctor Lantus SoloStar 100 UNIT/ML injection (PEN) Inject 32 Units into the skin every morning. Last time this was given: Ask your nurse or doctor Last time this was given: Ask your nurse or doctor Generic drug: insulin glargine methenamine 1 g tablet Commonly known as: HIPREX Take 1 tablet (1 g total) by mouth 2 (two) times daily. Last time this was given: 1 g on October 14, 2023 8:10 AM Last time this was given: October 14, 2023 8:10 AM naloxone 4 MG/0.1ML nasal spray Commonly known as: NARCAN 1 spray by Nasal route as needed for Opioid reversal. ondansetron 4 MG disintegrating tablet Commonly known as: ZOFRAN-ODT Take 1 tablet (4 mg total) by mouth every 8 (eight) hours as needed for Nausea. Last time this was given: Ask your nurse or doctor Signed by: Bonnie Martinez Last time this was given: Ask your nurse or doctor oxybutynin XL 15 MG 24 hr tablet Commonly known as: DITROPAN XL Take 1 tablet (15 mg total) by mouth daily. PULSE OXIMETER (DME) Please use the pulse oximeter when you are short of breath. If your reading is less than 85% after exerting yourself, or less than 90% at rest, please return to the emergency department. If you feel you are in immediate danger, please call 911. Signed by: Dr. Jaswinder Gaytan rOPINIRole 5 MG tablet Commonly known as: REQUIP Take 1 tablet (5 mg total) by mouth nightly at bedtime. Last time this was given: 5 mg on October 13, 2023 10:19 PM Last time this was given: October 13, 2023 10:19 PM Xarelto 20 MG Tabs tablet Take 1 tablet (20 mg total) by mouth every evening. Last time this was given: 20 mg on October 13, 2023 10:19 PM Last time this was given: October 13, 2023 10:19 PM Generic drug: rivaroxaban Disposition: Home with self care Time Spent on Discharge: Less than 30 minutes Signed: Janeth Valdez MD documented in this encounter Discharge Instructions * Attachments The following attachments cannot be sent through Care Everywhere. * Community-acquired pneumonia in adults ([place]) documented in this encounter Medications at Time [...] for 4 days. 8 tablet 4 10/18/19 24 documented as of this encounter Progress Notes * Jada Bach RN - 10/14/2023 10:56 AM CDT Problem: Pain Goal: Patient's pain/discomfort is manageable Description: Assess and monitor patient's pain using appropriate pain scale. Collaborate with interdisciplinary team and initiate plan and interventions as ordered. Re-assess patient's pain level 30 - 60 minutes after pain management intervention. 10/14/2023 1056 by Jada Bach RN Outcome: Adequate for Discharge 10/14/2023 09 by Jada Bach RN Outcome: Progressing Problem: Safety Goal: Patient will be injury free during hospitalization Description: Assess and monitor vitals signs, neurological status including level of consciousness and orientation. Assess patient's risk for falls and implement fall prevention plan of care and interventions per hospital policy. Ensure arm band on, uncluttered walking paths in room, adequate room lighting, call light and overbed table within reach, bed in low position, wheels locked, side rails up per policy, and non-skid footwear provided. 10/14/2023 1056 by Jada Bach RN Outcome: Adequate for Discharge 10/14/2023 09 by Jada Bach RN Outcome: Progressing Problem: Daily Care Goal: Daily care needs are met Description: Assess and monitor ability to perform self care and identify potential discharge needs. 10/14/2023 1056 by Jada Bach RN Outcome: Adequate for Discharge 10/14/2023 09 by Jada Bach RN Outcome: Progressing Problem: Psychosocial Needs Goal: Demonstrates ability to cope with hospitalization/illness Description: Assess and monitor patients ability to cope with his/her illness. 10/14/2023 1056 by Jada Bach RN Outcome: Adequate for Discharge 10/14/2023 09 by Jada Bach RN Outcome: Progressing Goal: Collaborate with patient/family/caregiver to identify patient specific goals for this hospitalization 10/14/2023 1056 by Jada Bach RN Outcome: Adequate for Discharge 10/14/2023904 by Jada Bach RN Outcome: Progressing Problem: Discharge Barriers Goal: Patient's discharge needs are met Description: Collaborate with interdisciplinary team and initiate plans and interventions as needed. 10/14/2023 1056 by Jada Bach RN Outcome: Adequate for Discharge 10/14/2023904 by Jada Bach RN Outcome: Progressing Problem: Reduced risk for falls/injury Goal: Reduced Risk for Falls/Injury 10/14/2023 1056 by Jada Bach RN Outcome: Adequate for Discharge 10/14/2023 09 by Jada Bach RN Outcome: Progressing Goal: Reduced Risk of Confusion (Acute vs Chronic) 10/14/2023 1056 by Jada Bach RN Outcome: Adequate for Discharge 10/14/2023 09 by Jada Bach RN Outcome: Progressing Goal: Reduced Risk of Symptomatic Depression 10/14/2023 1056 by Jada Bach RN Outcome: Adequate for Discharge 10/14/2023 09 by Jada Bach RN Outcome: Progressing Goal: Reduced Risk of Altered Elimination 10/14/2023 1056 by Jada Bach RN Outcome: Adequate for Discharge 10/14/2023 09 by Jada Bach RN Outcome: Progressing Goal: Reduced Risk of Dizziness/Vertigo/Balance 10/14/2023 1056 by Jada Bach RN Outcome: Adequate for Discharge 10/14/2023 09 by aJda Bach RN Outcome: Progressing Goal: Reduced Risk of Polypharmacy 10/14/2023 1056 by Jada Bach RN Outcome: Adequate for Discharge 10/14/2023 0905 by Jada Bach RN Outcome: Progressing * Jada Bach RN - 10/14/2023 9:05 AM CDT Problem: Pain Goal: Patient's pain/discomfort is manageable Description: Assess and monitor patient's pain using appropriate pain scale. Collaborate with interdisciplinary team and initiate plan and interventions as ordered. Re-assess patient's pain level 30 - 60 minutes after pain management intervention. Outcome: Progressing Problem: Safety Goal: Patient will be injury free during hospitalization Description: Assess and monitor vitals signs, neurological status including level of consciousness and orientation. Assess patient's risk for falls and implement fall prevention plan of care and interventions per hospital policy. Ensure arm band on, uncluttered walking paths in room, adequate room lighting, call light and overbed table within reach, bed in low position, wheels locked, side rails up per policy, and non-skid footwear provided. Outcome: Progressing Problem: Daily Care Goal: Daily care needs are met Description: Assess and monitor ability to perform self care and identify potential discharge needs. Outcome: Progressing Problem: Psychosocial Needs Goal: Demonstrates ability to cope with hospitalization/illness Description: Assess and monitor patients ability to cope with his/her illness. Outcome: Progressing Goal: Collaborate with patient/family/caregiver to identify patient specific goals for this hospitalization Outcome: Progressing Problem: Discharge Barriers Goal: Patient's discharge needs are met Description: Collaborate with interdisciplinary team and initiate plans and interventions as needed. Outcome: Progressing Problem: Reduced risk for falls/injury Goal: Reduced Risk for Falls/Injury Outcome: Progressing Goal: Reduced Risk of Confusion (Acute vs Chronic) Outcome: Progressing Goal: Reduced Risk of Symptomatic Depression Outcome: Progressing Goal: Reduced Risk of Altered Elimination Outcome: Progressing Goal: Reduced Risk of Dizziness/Vertigo/Balance Outcome: Progressing Goal: Reduced Risk of Polypharmacy Outcome: Progressing * Dashawn Naranjo RN - 10/14/2023 5:53 AM CDT Problem: Pain Goal: Patient's pain/discomfort is manageable Description: Assess and monitor patient's pain using appropriate pain scale. Collaborate with interdisciplinary team and initiate plan and interventions as ordered. Re-assess patient's pain level 30 - 60 minutes after pain management intervention. Outcome: Progressing Problem: Safety Goal: Patient will be injury free during hospitalization Description: Assess and monitor vitals signs, neurological status including level of consciousness and orientation. Assess patient's risk for falls and implement fall prevention plan of care and interventions per hospital policy. Ensure arm band on, uncluttered walking paths in room, adequate room lighting, call light and overbed table within reach, bed in low position, wheels locked, side rails up per policy, and non-skid footwear provided. Outcome: Progressing Problem: Daily Care Goal: Daily care needs are met Description: Assess and monitor ability to perform self care and identify potential discharge needs. Outcome: Progressing Problem: Psychosocial Needs Goal: Demonstrates ability to cope with hospitalization/illness Description: Assess and monitor patients ability to cope with his/her illness. Outcome: Progressing documented in this encounter H&P Notes * Nanda Pineda MD - 10/13/2023 8:19 PM CDT Hospitalist History and Physical Patient: Mohsen Marques Date: 10/13/2023 female, 68-year-old Admit Date: 10/13/2023 Attending: Nanda Pineda MD REASON FOR ADMISSION: 68 yo female with PMH of HTN, breast CA s/p bilateral mastectomy and radiation in remission, IDDM, frequent UTI's, DVT/PE on xarelto, restless leg syndrome, chronic pain syndrome (on high dose of Marianna) who presents for evaluation of cough generalized weakness and fever at home. She was seen in [facility] yesterday, diagnosed with PNA, prescibed Xentela(lefamulin), but was unable to find this medication in any pharmacy around. Patient has multiple allergies noted in the medical record, most serious is anaphylactic reaction to cephalosporins. The rest is mostly intolerance or rashes. The patient was started on meropenem , premedicated with Benadryl(this was discussed with pharmacy). The patient tolerated Meropenem without difficulties. HISTORY OF PRESENT ILLNESS: Allergy Allergies Allergen Reactions Ativan [Lorazepam] Hyperactive Aggrevates restless leg syndrome Cephalosporins Anaphylaxis Rocephin [Ceftriaxone] Shortness of Breath Levofloxacin Hives Meropenem Rash Nitrofurantoin Other (see comment), Itching and Rash Oxycodone Vomiting Reglan [Metoclopramide] Hyperactive Trazodone Other (see comment) Shaky, restlessness, itching, throat swelling Medication list (Not in a hospital admission) No current facility-administered medications on file prior to encounter. Current Outpatient Medications on File Prior to Encounter Medication Sig Dispense Refill albuterol sulfate HFA 108 (90 Base) MCG/ACT inhaler Inhale 2 puffs into the lungs every 4 (four) hours as needed for Wheezing or Shortness of breath. 8 g 0 amitriptyline 25 MG tablet Take 25 mg by mouth nightly at bedtime. aspirin 325 MG tablet Take 1 tablet (325 mg total) by mouth daily. 30 tablet 0 dextromethorphan ER 30 MG/5ML liquid Take 5 mLs (30 mg total) by mouth every 12 (twelve) hours as needed (Cough and/or sore throat). 280 mL 0 diclofenac EC 75 MG tablet Take 1 tablet (75 mg total) by mouth 2 (two) times daily as needed (Pain. Please take with meals). 30 tablet 0 exemestane 25 MG tablet Take 25 mg by mouth daily with supper. Give with food 3 famotidine 20 MG tablet Take 1 tablet (20 mg total) by mouth 2 (two) times daily. 60 tablet 0 HYDROcodone-acetaminophen 7.5-325 MG tablet Take 1 tablet by mouth every 6 (six) hours as needed. insulin glargine (LANTUS SOLOSTAR) 100 UNIT/ML injection (PEN) Inject 50 Units into the skin every morning. insulin lispro 100 UNIT/ML injection (VIAL) Inject 20-22 Units into the skin see administration instructions. 20 units before breakfast. 20 units before lunch. 22 units before dinner. Patient also uses sliding scale: BS>140, add 1 unit for every 15 mg/dl >140 Lefamulin Acetate 600 MG Tab Take 600 mg by mouth every 12 (twelve) hours for 10 days. 20 tablet 0 lisinopril 20 MG tablet Take 20 mg by mouth daily. mirabegron ER (MYRBETRIQ) 25 MG 24 hr tablet Take 1 tablet (25 mg total) by mouth daily. 30 tablet 0 naloxone 4 MG/0.1ML nasal spray CALL 911. SPR CONTENTS OF ONE SPRAYER (0.1ML) INTO ONE NOSTRIL. REPEAT IN 2-3 MIN IF SYMPTOMS OF OPIOID EMERGENCY PERSIST, ALTERNATE NOSTRILS ondansetron 4 MG disintegrating tablet Take 1 tablet (4 mg total) by mouth every 8 (eight) hours asneeded for Nausea. 20 tablet 0 oxybutynin 5 MG tablet Take 5 mg by mouth 2 (two) times daily. PULSE OXIMETER, DME, Please use the pulse oximeter when you are short of breath. If your reading isless than 85% after exerting yourself, or less than 90% at rest, please return to the emergency department. If you feel you are in immediate danger, please call 911. 1 Device 0 ROPINIROLE HYDROCHLORIDE 5 MG Tab Take 5 mg by mouth nightly at bedtime. 3 sucralfate 1 G tablet Take 1 tablet (1 g total) by mouth 4 (four) times daily. 120 tablet 0 XARELTO 20 MG Tab tablet Take 20 mg by mouth every evening. Past Medical History Past Medical History: Diagnosis Date Arthritis Back pain Blood clot in vein Breast cancer ([facility]) Cancer ([facility]) Diabetes mellitus ([facility]) Disease of thyroid gland DVT (deep venous thrombosis) ([facility]) Hypertension Kidney stones Neuropathy PE (pulmonary thromboembolism) ([facility]) Restless leg syndrome Spinal headache Has Bulging disc in lower back and Neck Past Surgical History: Procedure Laterality Date SECTION CHOLECYSTECTOMY COLONOSCOPY/EGD 09/10/2018 dr mcmullen - normal EGD - moderate diverticulosis - mild hemorrhoid HERNIA REPAIR MASTECTOMY TOTAL KNEE ARTHROPLASTY Social History Social History Socioeconomic History Marital status: Tobacco Use Smoking status: Former Current packs/day: 0.00 Average packs/day: 0.3 packs/day for 2.0 years (0.5 ttl pk-yrs) Types: Cigarettes Start date: 03/23/1975 Quit date: 03/23/1977 Years since quittin.5 Smokeless tobacco: Never Substance and Sexual Activity Alcohol use: No Drug use: No Sexual activity: Never Social History Narrative Pt lives at home with dtr. Pt dtr helps her with adls. Pt uses a cane and walker. Social Determinants of Health Financial Resource Strain: Patient Unable To Answer (08/15/2023) Received from [facility] Overall Financial Resource Strain (CARDIA) Difficulty of Paying Living Expenses: Patient unable to answer Food Insecurity: Patient Unable To Answer (08/15/2023) Received from [facility] Hunger Vital Sign Worried About Running Out of Food in the Last Year: Patient unable to answer Ran Out of Food in the Last Year: Patient unable to answer Transportation Needs: Patient Unable To Answer (08/15/2023) [facility] [facility] PRAPARE - Transportation Lack of Transportation (Medical): Patient unable to answer Lack of Transportation (Non-Medical): Patient unable to answer Stress: No Stress Concern Present (05/16/2023) Received from [facility] Occupational Health - Occupational Stress Questionnaire Feeling of Stress : Not at all Social Connections: Patient Unable To Answer (08/15/2023) Received from [facility] Social Connection and Isolation Panel [NHANES] Frequency of Communication with Friends and Family: Patient unable to answer Frequency of Social Gatherings with Friends and Family: Patient unable to answer Attends [employer] Services: Patient unable to answer Active Member of Clubs or Organizations: Patient unable to answer Attends Club or Organization Meetings: Patient unable to answer Marital Status: Patient unable to answer Family History Family History Problem Relation Name Age of Onset Aneurysm Mother Diabetes Mother Heart Disease Mother Hyperlipidemia Mother Hypertension Mother Stroke Mother Cancer Father Cancer Sister COPD Sister Depression Sister Cancer Brother REVIEW OF SYSTEMS: A 14 point review of systems was taken and pertinent positive as per HPI. Rest of review of systemsis negative. PHYSICAL EXAMINATION: Vital 24 Hour Range Most Recent Value Temperature Temp Min: 97.9 ??F (36.6 ??C) Max: 98.9 ??F (37.2 ??C) 98.9 ??F (37.2 ??C) Pulse Pulse Min: 70 Max: 79 79 Respiratory Resp Min: 18 Max: 22 18 Blood Pressure BP Min: 137/106 Max: 154/78 (!) 153/80 Pulse Oximetry SpO2 Min: 98 % Max: 100 % 100 % O2 No data recorded Vital Most Recent Value First Value Weight 119.7 kg (264 lb) Weight: 119.7 kg (264 lb) Height 154.9 cm (5' 1 ) Height: 154.9 cm (5' 1 ) BMI (!) 49.91 N/A Physical Exam: -GENERAL: No acute distress, breathing comfortably -EYES: PERRLA, EOM unremarkable -ENT: External ears and nose unremarkable. Mucous membranes moist -LUNG: Clear to auscultation bilaterally, No wheezes, No crackles, nonlabored -CVS: Regular rate rhythm, S1 and S2 normal, No murmurs, clicks, or rubs -ABDOMEN: Positive bowel sounds, soft, nondistended, Nontender -EXT: +1 lower Ext edema. -NEURO: Alert, awake, oriented x3, no new gross neuro deficit, speech coherent, fluent( no expressive, receptive aphasia) CN II=XII grossly unremarkable, motor: mm strength 5/5, no pronator drift, tics or tremor, coordination :finger to nose unremarkable gait :not examined, sensory: unremarkable & equal , pt denies loss of balance, facial droop, CAZARES, visual changes or visual loss, -PSYCH: affect appropriate, pleasant -SKIN: Skin color, texture, turgor normal. No rashes or lesions Intake/Output last 3 shifts: No intake/output data recorded. Labs: Recent Labs Lab 10/13/23 005 NA 138 K 3.9 CL 104 CO2 29.9 AGAP 4.1* BUN 16 CR 0.85 BUNCREATININ 18.8 GLU 160* CA 9.4 Recent Labs Lab 10/13/23 0055 WBC 10.53 RBC 4.61 HGB 12.9 HCT 41.9 MCV 90.9 MCH 28.0 MCHC 30.8* PLT 282 RDW 13.9 MPV 9.9 Recent Labs Lab 10/13/23 0055 AST 16 ALT 22 No results for input(s): INR , PTT in the last 168 hours. Invalid input(s): ABG arterial blood gases Recent Labs Lab 10/13/235410/13/23 0340 TROP 8 7 No results for input(s): PH , PCO2 , PO2 , [id number] , BICARBWB , BASEDEFICIT , BASEEXCESS in the last 168 hours. 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: [id number] : 1955 Requested By: NESSA SINGLETON Order Number: [id number] Reading MD: Measurements Intervals [place] Rate: 65 P: 22 MI: 143 QRS: -4 QRSD: 92 T: 24 QT: 402 QTc: 421 Interpretive Statements SINUS RHYTHM INCOMPLETE RIGHT BUNDLE BRANCH BLOCK [90+ ms QRS DURATION, TERMINAL R IN V1/V2, 40+ ms S IN I/aVL/V4/V5/V6] SEPTAL MYOCARDIAL INFARCTION , OF INDETERMINATE AGE [40+ ms Q WAVE IN V1/V2] Compared to ECG 10/26/2021 19:11:00 Incomplete right bundle-branch block now present Myocardial infarct finding now present T-wave abnormality no longer present XR CHEST PORTABLE Result Date: 10/13/2023 EXAMINATION: XR CHEST PORTABLE, 10/13/2023 1:05 [...] By: Jeremías Gallegos MD, 10/13/2023 1:05 AM EKG: No results found for this visit on 10/13/23. Assessment & Plan 68 yo female with PMH of HTN, breast CA s/p bilateral mastectomy and radiation in remission, IDDM, frequent UTI's, DVT/PE on xarelto, restless leg syndrome, chronic pain syndrome (on high dose of [place]) . CAP presents with cough generalized weakness and fever at home. Chest x-ray is consistent with left lung pneumonia, see full report Meropenem (multiple allergies noted in MR, most serious anaphylaxis with cephalosporins,) premedicated with Benadryl albuterol inhaler symptomatic therapy for cough PRN IS at bedside WBC 11.6 DM type II Lantus , A1c, ISS Anxiety, depression home regimen LUL CPAP Morbid obesity BMI 49 TSH, lipid panel Multiple comorbidities as mentioned above contributing to complexity of clinical presentation ppx:xarelto Surrogate decision maker/POA : daughter FULL CODE STATUS Disp: Patient with PMH of multiple medical problems was admitted with pneumonia.Given the severity of initial presentation, pt's clinical status is concerning for decompensation and adverse outcome .Pt will be admitted to provide appropriate level of care and treatment as well as continued evaluation Social CAESAR impacting the care reviewed , no concerns at this time. History was obtained via chart review, old medical record and discussion with the patient. I personally reviewed all recent lab studies, imaging and EKG . Treatment plan was discussed with RN and the patient Other changes to care plan will be made based on progress during hospitalization TIME SPENT MORE THAN 30 MIN I have seen and examined the patient independently and anticipate patient will require a greater than 2 midnight stay. NANDA PINEDA MD 10/13/2023 8:19 PM documented in this encounter Nursing Notes * Jada Bach RN - 10/14/2023 11:00 AM CDT IV removed, discharge instructions reviewed with pt. Pt states her ride will not be able to be hereuntil noon. documented in this encounter ED Notes * Ayde Moss RN - 10/13/2023 7:18 PM CDT Pt fell asleep in the w/c, then woke up and stated that she needed a Benadryl for allergic reaction, stated that she is having a hard time breathing, Dr Schwartz aware, orders placed * Peter Schwartz MD - 10/13/2023 6:16 PM CDT [place], [place] EMERGENCY DEPARTMENT ENCOUNTER Chief Complaint Chief Complaint Patient presents with Medical Problem History of Present Illness Provider at Bedside None Mohsen Marques is a 15-wajw-bhy-year-old female with a PMH of arthritis, back pain, blood clot, breast cancer, diabetes mellitus, disease of thyroid gland, DVT, hypertension, neuropathy, PE, and spinal headache presents to the ED from home for a new antibiotic prescription. Patient left this facility at 0530 this morning with a prescription for Lefamulin Acetate 600mg for newly diagnosed pneumonia. However, patient reports [facility] does not carry this prescription so she came back to this ED for a new medication. Patient's symptoms are the same as last night consisting of shortness of breath, cough, chest tightness and a low grade fever that was relieved by tylenol. Medical History ALLERGIES: Review of patient's allergies indicates: Allergen Reactions Ativan [Lorazepam] Hyperactive Aggrevates restless leg syndrome Cephalosporins Anaphylaxis Rocephin [Ceftriaxone] Shortness of Breath Levofloxacin Hives Meropenem Rash Nitrofurantoin Other (see comment), Itching and Rash Oxycodone Vomiting Reglan [Metoclopramide] Hyperactive Trazodone Other (see comment) Shaky, restlessness, itching, throat swelling MEDICATIONS: Prior to Admission medications Medication Sig Start Date End Date Taking? Authorizing Provider albuterol sulfate HFA 108 (90 Base) MCG/ACT inhaler Inhale 2 puffs into the lungs every 4 (four) hours as needed for Wheezing or Shortness of breath. 04/19/21 Yes Jaswinder Gaytan MD exemestane 25 MG tablet Take 1 tablet by mouth daily with supper. Give with food 08/09/17 Yes [facility] gabapentin (NEURONTIN) 300 MG capsule Take 1 capsule (300 mg total) by mouth 3 (three) times daily.06/20/23 Yes Default History Genericprovider HYDROcodone-acetaminophen (NORCO) 10-325 MG tablet Take 1 tablet by mouth every 6 (six) hours as needed. 06/27/20 Yes Doc [facility] insulin glargine (LANTUS SOLOSTAR) 100 UNIT/ML injection (PEN) Inject 32 Units into the skin every morning. Yes Doc [facility] insulin lispro 100 UNIT/ML injection (VIAL) Inject 28 Units into the skin see administration instructions. 28 units before breakfast. 28 units before lunch. 28 units before dinner. Patient also uses sliding scale: BS>140, add 1 unit for every 15 mg/dl >140 Yes methenamine (HIPREX) 1 g tablet Take 1 tablet (1 g total) by mouth 2 (two) times daily. 07/12/23 YesDefault History Genericprovider ondansetron 4 MG disintegrating tablet Take 1 tablet (4 mg total) by mouth every 8 (eight) hours asneeded for Nausea. 07/19/21 Yes Bonnie Martinez APRN oxybutynin XL (DITROPAN XL) 15 MG 24 hr tablet Take 1 tablet (15 mg total) by mouth daily. 09/25/23 Yes Default History Genericprovider ROPINIROLE HYDROCHLORIDE 5 MG Tab Take 1 tablet (5 mg total) by mouth nightly at bedtime. 07/14/17 Yes Doc [facility] XARELTO 20 MG Tab tablet Take 1 tablet (20 mg total) by mouth every evening. 07/17/20 Yes Doc [facility] naloxone 4 MG/0.1ML nasal spray 1 spray by Nasal route as needed for Opioid reversal. 05/13/21 Doc [facility] PULSE OXIMETER, DME, Please use the pulse oximeter when you are short of breath. If your reading isless than 85% after exerting yourself, or less than 90% at rest, please return to the emergency department. If you feel you are in immediate danger, please call 911. 04/19/21 Jaswinder Gaytan MD PAST MEDICAL HISTORY: Past Medical History: Diagnosis Date Arthritis Back pain Blood clot in vein Breast cancer ([facility]/HCC HHS/HCC) Cancer ([facility]/HCC HHS/HCC) Diabetes mellitus ([facility]/HCC HHS/HCC) Disease of thyroid gland DVT (deep venous thrombosis) ([facility]/HCC HHS/HCC) Hypertension Kidney stones Neuropathy PE (pulmonary thromboembolism) ([facility] HHS/HCC) Restless leg syndrome Spinal headache Has Bulging disc in lower back and Neck PAST SURGICAL HISTORY: Past Surgical History: Procedure Laterality Date SECTION CHOLECYSTECTOMY COLONOSCOPY/EGD 09/10/2018 dr mcmullen - normal EGD - moderate diverticulosis - mild hemorrhoid HERNIA REPAIR MASTECTOMY TOTAL KNEE ARTHROPLASTY FAMILY HISTORY: Family History Problem Relation Name Age of Onset Aneurysm Mother Diabetes Mother Heart Disease Mother Hyperlipidemia Mother Hypertension Mother Stroke Mother Cancer Father Cancer Sister COPD Sister Depression Sister Cancer Brother SOCIAL HISTORY: Social History Tobacco Use Smoking status: Former Current packs/day: 0.00 Average packs/day: 0.3 packs/day for 2.0 years (0.5 ttl pk-yrs) Types: Cigarettes Start date: 03/23/1975 Quit date: 03/23/1977 Years since quittin.6 Smokeless tobacco: Never Substance Use Topics Alcohol use: No Drug use: No Review of Systems Review of Systems Constitutional: Positive for fever. Negative for chills. HENT: Negative for sore throat. Eyes: Negative for pain. Respiratory: Positive for cough and shortness of breath. Cardiovascular: Negative for chest pain. Gastrointestinal: Negative for abdominal pain, diarrhea and nausea. Endocrine: Negative for polyuria. Genitourinary: Negative for dysuria. Skin: Negative for rash. Neurological: Negative for dizziness and headaches. Psychiatric/Behavioral: Negative for behavioral problems. See HPI for further details. All systems negative except as marked. Physical Exam Filed Vitals: 10/13/23 2320 10/14/23 0221 10/14/23 0755 10/14/23 1102 BP: 133/84 123/72 Pulse: 69 64 Resp: 15 18 Temp: TempSrc: SpO2: 97% 95% 97% Weight: Height: Physical Exam Vitals and nursing note reviewed. Constitutional: Appearance: She is well-developed. HENT: Head: Normocephalic and atraumatic. Eyes: Conjunctiva/sclera: Conjunctivae normal. Cardiovascular: Rate and Rhythm: Normal rate and regular rhythm. Pulses: Normal pulses. Heart sounds: Normal heart sounds. Pulmonary: Effort: Pulmonary effort is normal. Breath sounds: Normal breath sounds. No stridor. Abdominal: General: Bowel sounds are normal. Palpations: Abdomen is soft. Tenderness: There is no abdominal tenderness. Musculoskeletal: General: No deformity. Cervical back: Neck supple. Skin: General: Skin is warm and dry. Neurological: Mental Status: She is alert and oriented to person, place, and time. Diagnostic Studies / Procedures ELECTROCARDIOGRAMS: No results found for this visit on 10/13/23. LABORATORY STUDIES: Results for orders placed or performed during the hospital encounter of 10/13/23 CBC W/DIFF AUTOMATED Result Value Ref Range WBC 11.65 (H) 4.5 - 11.0 x10'3/uL RBC 4.56 4.20 - 5.40 x10'6/uL HGB 12.8 12.0 - 16.0 G/DL HCT 40.9 38.0 - 48.0 % MCV 89.7 81.0 - 99.0 FL MCH 28.1 27.0 - 31.0 PG MCHC 31.3 (L) 32.0 - 36.0 G/DL RDW 13.8 11.5 - 14.5 % PLT 280 130 - 400 x10'3/uL MPV 10.0 9.3 - 12.2 FL DIFFERENTIAL TYPE AUTOMATED DIFFERENTIAL NEUTROPHILS 62.4 % LYMPHOCYTES 27.1 % MONOCYTES 7.5 % EOSINOPHILS 2.3 % BASOPHILS 0.3 % IMMATURE GRANS 0.4 % ABS. NEUTROPHILS 7.26 1.80 - 7.70 x10'3/uL ABS. LYMPHOCYTES 3.16 1.00 - 4.80 x10'3/uL ABS. MONOCYTES 0.87 (H) 0.24 - 0.86 x10'3/uL ABS. EOSINOPHILS 0.27 0.04 - 0.36 x10'3/uL ABS. BASOPHILS 0.04 0.01 - 0.08 x10'3/uL ABS. IMMATURE GRANULOCYTES 0.05 0.00 - 0.49 x10'3/uL COMPREHENSIVE METABOLIC PANEL Result Value Ref Range GLUCOSE 134 (H) 70 - 99 MG/DL BUN 15 7 - 18 MG/DL CREATININE S/P/B 0.86 0.55 - 1.02 MG/DL SODIUM S/P/B 138 136 - 145 MMOL/L POTASSIUM S/P/B 4.0 3.5 - 5.1 MMOL/L CHLORIDE S/P/B 106 100 - 108 MMOL/L CO2 26.5 21 - 32 MMOL/L CALCIUM S/P/B 10.1 8.5 - 10.1 MG/DL BILIRUBIN TOTAL S/P/B 0.5 0.2 - 1.2 MG/DL TOTAL PROTEIN S/P/B 8.3 (H) 6.4 - 8.2 G/DL ALBUMIN S/P/B 3.2 (L) 3.4 - 5.0 G/DL AST 14 (L) 15 - 37 U/L ALT 19 14 - 55 U/L ALKALINE PHOSPHATASE S/P/B 82 50 - 136 U/L ANION GAP 5.5 5 - 15 MMOL/L BUN CREATININE RATIO 17.4 6 - 26 A/G RATIO 0.6 (L) 1.0 - 2.0 RATIO GFR ESTIMATE 74 (L) >90 ML/MIN/1.73 M2 CBC W/DIFF AUTOMATED Result Value Ref Range WBC 10.10 4.5 - 11.0 x10'3/uL RBC 4.08 (L) 4.20 - 5.40 x10'6/uL HGB 11.6 (L) 12.0 - 16.0 G/DL HCT 37.5 (L) 38.0 - 48.0 % MCV 91.9 81.0 - 99.0 FL MCH 28.4 27.0 - 31.0 PG MCHC 30.9 (L) 32.0 - 36.0 G/DL RDW 13.9 11.5 - 14.5 % PLT 246 130 - 400 x10'3/uL MPV 10.0 9.3 - 12.2 FL DIFFERENTIAL TYPE AUTOMATED DIFFERENTIAL NEUTROPHILS 59.2 % LYMPHOCYTES 28.9 % MONOCYTES 7.7 % EOSINOPHILS 3.4 % BASOPHILS 0.4 % IMMATURE GRANS 0.4 % ABS. NEUTROPHILS 5.98 1.80 - 7.70 x10'3/uL ABS. LYMPHOCYTES 2.92 1.00 - 4.80 x10'3/uL ABS. MONOCYTES 0.78 0.24 - 0.86 x10'3/uL ABS. EOSINOPHILS 0.34 0.04 - 0.36 x10'3/uL ABS. BASOPHILS 0.04 0.01 - 0.08 x10'3/uL ABS. IMMATURE GRANULOCYTES 0.04 0.00 - 0.49 x10'3/uL BASIC METABOLIC PANEL Result Value Ref Range GLUCOSE 149 (H) 70 - 99 MG/DL BUN 16 7 - 18 MG/DL CREATININE S/P/B 0.78 0.55 - 1.02 MG/DL SODIUM S/P/B 139 136 - 145 MMOL/L POTASSIUM S/P/B 4.4 3.5 - 5.1 MMOL/L CHLORIDE S/P/B 108 100 - 108 MMOL/L CO2 27.7 21 - 32 MMOL/L CALCIUM S/P/B 9.3 8.5 - 10.1 MG/DL ANION GAP 3.3 (L) 5 - 15 MMOL/L BUN CREATININE RATIO 20.5 6 - 26 GFR ESTIMATE 83 (L) >90 ML/MIN/1.73 M2 THYROID STIM HORMONE, TSH Result Value Ref Range TSH 1.900 0.358 - 3.74 uIU/ML HEMOGLOBIN, GLYCOSYLATED Result Value Ref Range HGB A1C 8.0 (H) <5.7 % ESTIMATED AVG GLUCOSE 183 mg/dL LIPID PANEL Result Value Ref Range CHOLESTEROL 164 <200 MG/DL TRIGLYCERIDES 114 <150 MG/DL HDL 46 >40.0 MG/DL LDL (CALCULATED) 95 <100 MG/DL NON HDL CHOLESTEROL 118 <130 MG/DL CHOL/HDL RATIO 3.6 0.0 - 4.5 VLDL CALCULATION 23 5 - 55 MG/DL LIPID INTERPRETATION POCT glucose Result Value Ref Range GLUCOSE POC 143 (H) 70 - 99 mg/dL POCT glucose Result Value Ref Range GLUCOSE POC 170 (H) 70 - 99 mg/dL IMAGING STUDIES No orders to display ED Course / Medical Decision Making Medical Decision Making Amount and/or Complexity of Data Reviewed External Data Reviewed: notes. Details: Reviewed note from earlier today 10/13/[address] Joao Kraft Ox Interpretation: Saturation: 98 (%) Oxygen Delivery: room air Interpretation: No acute hypoxia at this time. Rhythm strip interpretation: Rhythm sinus rate 75. No ectopy. Data reviewed: All current, pertinent and timely studies (laboratory, imaging, and procedures) wereordered and results reviewed by No att. providers found unless otherwise noted. Triage notes and available nursing notes reviewed. Previous medical record reviewed when available. Repeat vital signs reviewed. Medications clarithromycin (BIAXIN) tablet 500 mg (500 mg Oral Given 10/13/231839) diphenhydrAMINE (BENADRYL) capsule 25 mg (25 mg Oral Given 10/13/231917) meropenem (MERREM) 1 g in sodium chloride 0.9 % 50 mL IVPB (0 g Intravenous Infusion Stop Time 10/13/232101) Clinical Impression Pneumonia (Primary) Discharge Medication List as of 10/14/2023 10:59 AM START taking these medications Details amoxicillin-clavulanate (AUGMENTIN) 875-125 MG tablet Take 1 tablet (875 mg total) by mouth 2 (two)times daily for 4 days., Starting 10/14/2023, Until 10/18/2023, Eprescribe Class: Eprescribe Pharmacy: [id number] - [place] - [address] (Ph #: [phone]) Disposition: Admit Follow-Up: GERARDO HOFFMAN MD I, Camille Johnson, acting as a scribe, am personally taking down the notes in the presence of Peter Schwartz MD. Take no action on this note until reviewed and authenticated by the physician. Peter Schwartz MD 10/20/23 0550 * Lisa Adamson RN - 10/13/2023 5:58 PM CDT Patient presents to ER with concerns for antibiotic being unavailable. States she was seen here early this AM, prescribed an antibiotic and she is unable to find it at any pharmacy. Diagnosed with pneumonia. documented in this encounter Plan of Treatment Not on file documented as of this encounter Procedures Procedure Name Priority Date/Time Associated Diagnosis Comments POCT GLUCOSE - SAVAGE DOCKED DEVICE Routine 10/14/2023 11:08 AM CDT POCT GLUCOSE - SAVAGE DOCKED DEVICE Routine 10/14/2023 6:31 AM CDT HEMOGLOBIN, GLYCOSYLATED Routine 10/14/2023 3:40 AM CDT BASIC METABOLIC PANEL Routine 10/14/2023 3:40 AM CDT LIPID PANEL Routine 10/14/2023 3:40 AM CDT CBC W/DIFF AUTOMATED Routine 10/14/2023 3:40 AM CDT THYROID STIM HORMONE TSH Routine 10/14/2023 3:40 AM CDT COMPREHENSIVE METABOLIC PANEL STAT 10/13/2023 8:05 PM CDT CBC W/DIFF AUTOMATED STAT 10/13/2023 8:05 PM CDT documented in this encounter Results * (ABNORMAL) POCT glucose (10/14/2023 11:08 AM CDT) GLUCOSE POC 170(H) 70 - 99 mg/dL 10/14/2023 11:09 AM CDT [facility] 10/14/2023 11:0 8 AM CDT us Janeth Valdez MD POCT ORDERABLES - DEVICE F inal Result Performing Organization Address [facility]/ZIP Co de Phone Number [facility] [address] [place] [address], [place] [phone] * (ABNORMAL) POCT glucose (10/14/2023 6:31 AM CDT) GLUCOSE POC 143(H) 70 - 99 mg/dL 10/14/2023 6:33 AM CDT [facility] 10/14/2023 6:31 AM CDT us Janeth Valdez MD POCT ORDERABLES - DEVICE F inal Result Performing Organization Address City/[facility]/ZIP Co de Phone Number [facility] [address] [place] [address], [place] [phone] * LIPID PANEL (10/14/2023 3:40 AM CDT) CHOLESTEROL 164 <200 MG/DL 10/14/2023 4:31 AM CDT [facility] TRIGLYCERIDES 114 <150 MG/DL 10/14/2023 4:31 AM [facility] HDL 46 >40.0 MG/DL 10/14/2023 4:31 AM [facility] LDL (CALCULATED) 95 <100 MG/DL 10/14/19 4:31 AM [facility] NON HDL CHOLESTEROL 118 <130 MG/DL 10/13 4:31 AM [facility] CHOL/HDL RATIO 3.6 0.0 - 4.5 10/14/2023 4:31 AM [facility] VLDL CALCULATION 23 5 - 55 MG/DL 10/14/2023 4:31 AM [facility] LIPID INTERPRETATION 10/14/2023 4:31 AM [facility] Comment: [facility] REPORT RECOMMENDATIONS: ?ADULT ?CHILD ??LOW RISK: ?CHOLESTEROL ? <200 ? <170 ?TRIGLYCERIDE ?<150 ?--- ?HDL ? >=60 ?--- ?LDL ? <100 ? <110 ??BORDERLINE: ?CHOLESTEROL ? 200-239 ?? 170-199 ?TRIGLYCERIDE ?150-199 ? --- ?HDL ?40-59 ?--- ?LDL ? 100-159 ?? 110-129 ??HIGH RISK: ?CHOLESTEROL ? >=240 ?>=200 ?TRIGLYCERIDE ?>=200 ? --- ?HDL ?<40 ?--- ?LDL ? >=160 ?>=130 10/14/2023 3:40 AM CDT Nanda Pineda MD LABORATORY Final Result Performing Organization Address [facility] de Phone Number [facility] [address] [place] [address], * (ABNORMAL) HEMOGLOBIN, GLYCOSYLATED (10/14/2023 3:40 AM CDT) [facility] HGB A1C 8.0(H) <5.7 % 10/14/2023 5:50 AM CDT [facility] Comment: ADA GUIDELINES 2010 5.7 TO 6.4% INCREASED RISK OF DIABETES > OR = 6.5% CONSISTENT WITH DIABETES ESTIMATED AVG GLUCOSE 183 mg/dL 10/14/2023 5:50 AM CDT [facility] 10/14/2023 3:40 AM CDT us Nanda Pineda MD LABORATORY Final Result Performing Organization Address [facility] de Phone Number [facility] [address] [place] [address], * THYROID STIM HORMONE, TSH (10/14/2023 3:40 AM CDT) TSH 1.900 0.358 - 3.74 uIU/ML 10/14/2023 4:35 AM CDT [facility] Comment: HIGH DOSES OF BIOTIN MAY INTERFERE WITH THIS TEST RESULT. CORRELATION TO CLINICAL HISTORY AND PRESENTATION RECOMMENDED. 10/14/2023 3:40 AM CDT Nanda Pineda MD LABORATORY Final Result [facility] [address] [place] [address], [place] [phone] * (ABNORMAL) BASIC METABOLIC PANEL (10/14/2023 3:40 AM CDT) GLUCOSE 149(H) 70 - 99 MG/DL 10/14/2023 4:35 AM CDT [facility] BUN 16 7 - 18 MG/DL 10/14/2023 4:35 AM CDT [facility] CREATININE S/P/B 0.78 0.55 - 1.02 MG/DL 10/14/2023 4:35 AM CDT [facility] SODIUM S/P/B 139 136 - 145 MMOL/L 10/14/2023 4:35 AM CDT [facility] POTASSIUM S/P/B 4.4 3.5 - 5.1 MMOL/L 10/14/2023 4:35 AM CDT [facility] CHLORIDE S/P/B 108 100 - 108 MMOL/L 10/14/2023 4:35 AM CDT [facility] CO2 27.7 21 - 32 MMOL/L 10/14/2023 4:35 AM CDT [facility] CALCIUM S/P/B 9.3 8.5 - 10.1 MG/DL 10/14/2023 4:35 AM CDT [facility] ANION GAP 3.3(L) 5 - 15 MMOL/L 10/14/2023 4:35 AM CDT [facility] BUN CREATININE RATIO 20.5 6 - 26 10/14/2023 4:35 AM CDT [facility] GFR ESTIMATE 83(L) >90 ML/MIN/1.7 3 M2 10/14/2023 4:35 AM CDT [facility] Comment: NOTE: eGFR is not calculated for patients <18 years of age. This is an estimated GFR calculation using the new CKD EPI creatinine equation without race and so does not require a correction factor for race. This estimated GFR should not be used for calculating drug doses. 10/14/2023 3:40 AM CDT us Nanda Pineda MD LABORATORY Final Result [facility] [address] [place] [address], [place] [phone] * (ABNORMAL) CBC W/DIFF AUTOMATED (10/14/2023 3:40 AM CDT) WBC 10.10 4.5 - 11.0 x10'3/uL 10/14/2023 3:59 AM CDT [facility] RBC 4.08(L) 4.20 - 5.40 x10'6/uL 10/14/2023 3:59 AM CDT [facility] HGB 11.6(L) 12.0 - 16.0 G/DL 10/14/2023 3:59 AM CDT [facility] HCT 37.5(L) 38.0 - 48.0 % 10/14/2023 3:59 AM CDT [facility] MCV 91.9 81.0 - 99.0 FL 10/14/2023 3:59 AM CDT [facility] MCH 28.4 27.0 - 31.0 PG 10/14/2023 3:59 AM CDT [facility] MCHC 30.9(L) 32.0 - 36.0 G/DL 10/14/2023 3:59 AM CDT [facility] RDW 13.9 11.5 - 14.5 % 10/14/2023 3:59 AM CDT [facility] PLT 246 130 - 400 x10'3/uL 10/14/2023 3:59 AM CDT [facility] MPV 10.0 9.3 - 12.2 FL 10/14/2023 3:59 AM CDT [facility] DIFFERENTIAL TYPE AUTOMATED DIFFERENTIAL 10/14/2023 3:59 AM CDT [facility] NEUTROPHILS % 59.2 % 10/14/2023 3:59 AM CDT [facility] LYMPHOCYTES % 28.9 % 10/14/2023 3:59 AM CDT [facility] MONOCYTES % 7.7 % 10/14/2023 3:59 AM CDT [facility] EOSINOPHILS 3.4 % 10/14/2023 3:59 AM CDT [facility] BASOPHILS 0.4 % 10/14/2023 3:59 AM CDT [facility] IMMATURE GRANS % 0.4 % 10/14/19 3:59 AM CDT [facility] ABS. NEUTROPHILS 5.98 1.80 - 7.70 x10'3/uL 10/14/2023 3:59 AM CDT [facility] ABS. LYMPHOCYTES 2.92 1.00 - 4.80 x10'3/uL 10/14/2023 3:59 AM CDT [facility] ABS. MONOCYTES 0.78 0.24 - 0.86 x10'3/uL 10/14/2023 3:59 AM CDT [facility] ABS. EOSINOPHILS 0.34 0.04 - 0.36 x10'3/uL 10/14/2023 3:59 AM CDT [facility] ABS. BASOPHILS 0.04 0.01 - 0.08 x10'3/uL 10/14/2023 3:59 AM CDT [facility] ABS. IMMATURE GRANULOCYTES 0.04 0.00 - 0.49 x10'3/uL 10/14/2023 3:59 AM CDT [facility] 10/14/2023 3:40 AM CDT us Nanda Pineda MD LABORATORY Final Result [facility] [address] [place] [address], * (ABNORMAL) COMPREHENSIVE METABOLIC PANEL (10/13/2023 8:05 PM CDT) GLUCOSE 134(H) 70 - 99 MG/DL 10/13/2023 8:43 PM CDT [facility] BUN 15 7 - 18 MG/DL 10/13/2023 8:43 PM CDT [facility] CREATININE S/P/B 0.86 0.55 - 1.02 MG/DL 10/13/2023 8:43 PM CDT [facility] SODIUM S/P/B 138 136 - 145 MMOL/L 10/13/2023 8:43 PM CDT [facility] POTASSIUM S/P/B 4.0 3.5 - 5.1 MMOL/L 10/13/2023 8:43 PM CDT [facility] CHLORIDE S/P/B 106 100 - 108 MMOL/L 10/13/2023 8:43 PM CDT [facility] CO2 26.5 21 - 32 MMOL/L 10/13/2023 8:43 PM CDT [facility] CALCIUM S/P/B 10.1 8.5 - 10.1 MG/DL 10/13/2023 8:43 PM CDT [facility] BILIRUBIN TOTAL S/P/B 0.5 0.2 - 1.2 MG/DL 10/13/2023 8:43 PM CDT [facility] Comment: THIS ASSAY IS NOT RECOMMENDED FOR PATIENTS UNDERGOING TREATMENT WITH ELTROMBOPAG DUE TO THE POTENTIAL FOR FALSELY ELEVATED RESULTS. TOTAL PROTEIN S/P/B 8.3(H) 6.4 - 8.2 G/DL 10/13/2023 8:43 PM CDT [facility] ALBUMIN S/P/B 3.2(L) 3.4 - 5.0 G/DL 10/13/2023 8:43 PM CDT [facility] AST 14(L) 15 - 37 U/L 10/13/2023 8:43 PM T [facility] ALT 19 14 - 55 U/L 10/13/2023 8:43 PM T [facility] ALKALINE PHOSPHATASE S/P/B 82 50 - 136 U/L 10/13/2023 8:43 PM T [facility] ANION GAP 5.5 5 - 15 MMOL/L 10/13/2023 8:43 PM CDT [facility] BUN CREATININE RATIO 17.4 6 - 26 10/13/2023 8:43 PM T [facility] A/G RATIO 0.6(L) 1.0 - 2.0 RATIO 10/13/2023 8:43 PM T [facility] GFR ESTIMATE 74(L) >90 ML/MIN/1.7 3 M2 10/13/2023 8:43 PM CDT [facility] Comment: NOTE: eGFR is not calculated for patients <18 years of age. This is an estimated GFR calculation using the new CKD EPI creatinine equation without race and so does not require a correction factor for race. This estimated GFR should not be used for calculating drug doses. 10/13/2023 8:05 PM CDT Peter Schwartz MD LABORATORY Final Result [facility] [address] [place] [address], [place] [phone] * (ABNORMAL) CBC W/DIFF AUTOMATED (10/13/2023 8:05 PM CDT) WBC 11.65(H) 4.5 - 11.0 x10'3/uL 10/13/2023 8:25 PM CDT [facility] RBC 4.56 4.20 - 5.40 x10'6/uL 10/13/2023 8:25 PM CDT [facility] HGB 12.8 12.0 - 16.0 G/DL 10/13/2023 8:25 PM CDT [facility] HCT 40.9 38.0 - 48.0 % 10/13/2023 8:25 PM CDT [facility] MCV 89.7 81.0 - 99.0 FL 10/13/2023 8:25 PM CDT [facility] MCH 28.1 27.0 - 31.0 PG 10/13/2023 8:25 PM CDT [facility] MCHC 31.3(L) 32.0 - 36.0 G/DL 10/13/2023 8:25 PM CDT [facility] RDW 13.8 11.5 - 14.5 % 10/13/2023 8:25 PM CDT [facility] PLT 280 130 - 400 x10'3/uL 10/13/2023 8:25 PM CDT [facility] MPV 10.0 9.3 - 12.2 FL 10/13/2023 8:25 PM CDT [facility] DIFFERENTIAL TYPE AUTOMATED DIFFERENTIAL 10/13/2023 8:25 PM CDT [facility] NEUTROPHILS % 62.4 % 10/13/2023 8:25 PM CDT [facility] LYMPHOCYTES % 27.1 % 10/13/2023 8:25 PM CDT [facility] MONOCYTES % 7.5 % 10/13/2023 8:25 PM CDT [facility] EOSINOPHILS 2.3 % 10/13/2023 8:25 PM CDT [facility] BASOPHILS 0.3 % 10/13/2023 8:25 PM CDT [facility] IMMATURE GRANS % 0.4 % 10/13/19 8:25 PM CDT [facility] ABS. NEUTROPHILS 7.26 1.80 - 7.70 x10'3/uL 10/13/2023 8:25 PM CDT [facility] ABS. LYMPHOCYTES 3.16 1.00 - 4.80 x10'3/uL 10/13/2023 8:25 PM CDT [facility] ABS. MONOCYTES 0.87(H) 0.24 - 0.86 x10'3/uL 10/13/2023 8:25 PM CDT [facility] ABS. EOSINOPHILS 0.27 0.04 - 0.36 x10'3/uL 10/13/2023 8:25 PM CDT [facility] ABS. BASOPHILS 0.04 0.01 - 0.08 x10'3/uL 10/13/2023 8:25 PM CDT [facility] ABS. IMMATURE GRANULOCYTES 0.05 0.00 - 0.49 x10'3/uL 10/13/2023 8:25 PM CDT [facility] 10/13/2023 8:05 PM CDT Peter Schwartz MD LABORATORY Final Result [facility] [address] [place] [address], [place] [phone] documented in this encounter Visit Diagnoses Diagnosis CAP (community acquired pneumonia)- Primary Pneumonia, organism unspecified Pneumonia Pneumonia, organism unspecified Pneumonia Pneumonia, organism unspecified documented in this encounter Admitting Diagnoses Diagnosis CAP (community acquired pneumonia) Pneumonia, organism unspecified Pneumonia Pneumonia, organism unspecified documented in this encounter Administered Medications Inactive Administered Medications - up to 3 most recent administrations Medication Order MAR Action Action Date Dose Rate Site clarithromycin (BIAXIN) tablet 500 mg 500 mg, Oral, Once, 1 dose, On Mon10/13/23 at 1830 Given 10/13/2023 6:40 PM CDT 500 mg diphenhydrAMINE (BENADRYL) 25 MG capsule 1 dose, Starting on Mon10/13/23 at 1915, Until Mon10/13/23 at 1918, Created by cabinet override diphenhydrAMINE (BENADRYL) capsule 25 mg 25 mg, Oral, Once, 1 dose, On Mon10/13/23 at 1930 Given 10/13/2023 7:18 PM CDT 25 mg diphenhydrAMINE (BENADRYL) capsule 25 mg 25 mg, Oral, Every 8 hours scheduled (3 times per day), First dose (after last modification) on Mon10/13/23 at 2215, Until Discontinued, Give prior meropenem Given 10/14/2023 4:19 AM CDT 25 mg Given 10/13/2023 10:19 PM CDT 25 mg gabapentin (NEURONTIN) capsule 300 mg 300 mg, Oral, 3 times daily, First dose on Mon10/13/23 at 2245, Until Discontinued Given 10/14/2023 8:04 AM CDT 300 mg Given 10/13/2023 10:19 PM CDT 300 mg HYDROcodone-acetaminophen (NORCO) 10-325 MG tablet 1 tablet 1 tablet, Oral, Every 6 hours PRN, Moderate pain (Scale 4 - 7), Severe pain (Scale 8 - 10), Starting on Mon10/13/23 at 2211, Until 10/14/23 at 1441, Maximum dose of acetaminophen is 4000 mg from all sources in 24 hours. Given 10/14/2023 10:31 AM CDT 1 tablet Given 10/14/2023 4:19 AM CDT 1 tablet Given 10/13/2023 10:19 PM CDT 1 tablet insulin glargine (LANTUS) injection 32 Units 32 Units, Subcutaneous, Every morning, First dose (after last modification) on 10/14/23 at 0700, Until Discontinued Given 10/14/2023 7:58 AM CDT 32 Units Right Arm insulin lispro (HUMALOG) injection 0-16 Units 0-16 Units, Subcutaneous, 3 times daily before meals, First dose on Mon10/14/23 at 0700, Until Discontinued, Blood Glucose (USUAL Dosing): [Less than 70:? Initiate Hypoglycemia Standing Orders] [71-140: ? 0 units] [141-180:? 4 units] [181-220:? 6 units] [221-260:? 8 units] [261-300:? 10 units] [301-350:? 12 units] [351-400:? 14 units] [Greater than 400:? 16 units and Call Physician] Given 10/14/2023 12:30 PM CDT 4 Units Righ t Arm Given 10/14/2023 8:09 AM CDT 4 Units Le ft Arm insulin lispro (HUMALOG) injection 0-8 Units 0-8 Units, Subcutaneous, Nightly at bedtime, First dose on Mon10/13/23 at 2230, Until Discontinued, Blood Glucose (USUAL Dosing): [Less than 70:? Initiate Hypoglycemia Standing Orders] [71-180:? 0 units] [181-220:? 3 units] [221-260:? 4 units] [261-300:? 5 units] [301-350:? 6 units] [351-400:? 7 units] [Greater than 400:? 8 units and Call Physician] menthol-methyl salicylate (MUSCLE RUB) 10-15 % cream Topical, 3 times daily PRN, Pain, Starting on Mon10/14/23 at 0358, Until 10/14/23 at 1441, Apply topically to affected area(s) 3 times daily as needed for pain meropenem (MERREM) 1 g in sodium chloride 0.9 % 50 mL IVPB 1 g, Intravenous, at 100 mL/hr, Once, 1 dose, On Mon10/13/23 at 2000, Administer over 30 minutes. New Bag 10/13/2023 8:24 PM CDT 1 g 100 mL/hr meropenem (MERREM) 1 g in sodium chloride 0.9 % 50 mL IVPB 1 g, Intravenous, at 16.67 mL/hr, Every 8 hours, First dose (after last reorder) on Mon10/13/23 at 0400, Until Discontinued New Bag 10/14/2023 5:07 AM CDT 1 g 16.67 mL/hr methenamine (HIPREX) tablet 1 g 1 g, Oral, 2 times daily, First dose on Mon10/13/23 at 2245, Until Discontinued, MED STORED in CDU Pyxis-Patient Specific Bin Patient's Own Methenamine 1g - take 1 tablet by mouth twice daily Identified Quantity: #26 Med Identified by: GAIL 10/13/23 Please send medication home with patient upon discharge Given 10/14/2023 8:10 AM CDT 1 g naLOXone (NARCAN) injection 0.4 mg 0.4 mg, Intravenous, As needed, Opioid reversal, Starting on Mon10/13/23 at 2150, Until 10/14/23 at 1441 ondansetron (ZOFRAN) injection 4 mg 4 mg, Intravenous, Every 8 hours PRN, Nausea, Vomiting, Starting on Mon10/13/23 at 2036, Until 10/14/23 at 1441, IV push over 2-5 minutes. Given 10/13/2023 10:23 PM CDT 4 mg rivaroxaban (XARELTO) tablet 20 mg 20 mg, Oral, Every evening, Indications: Atrial Fibrillation, First dose on Mon10/13/23 at 2100, Until DiscontinuedIndications:Atrial Fibrillation Given 10/13/2023 10:19 PM CDT 20 mg rOPINIRole (REQUIP) tablet 5 mg 5 mg, Oral, Nightly at bedtime, First dose on Mon10/13/23 at 2100, Until Discontinued Given 10/13/2023 10:19 PM CDT 5 mg solifenacin (VESICARE) tablet 10 mg 10 mg, Oral, Daily, First dose on Mon10/14/23 at 0900, Until Discontinued, Do not break, chew, or crush. Given 10/14/2023 8:04 AM CDT 10 mg documented in this encounter Active and Recently Administered Medications Times are shown in CDT. Scheduled Medication Order 10/12/2023 10/13/2023 10/14/2023 clarithromycin (BIAXIN) tablet 500 mg (COMPLETED) 500 mg, Oral, Once, 1 dose, On Mon10/13/23 at 1830 1840 (Given - Provider: Ayde Moss RN) diphenhydrAMINE (BENADRYL) capsule 25 mg (COMPLETED) 25 mg, Oral, Once, 1 dose, On Mon10/13/23 at 1930 1918 (Given - Provider: Ayde Moss RN) diphenhydrAMINE (BENADRYL) capsule 25 mg 25 mg, Oral, Every 8 hours scheduled (3 times per day), First dose (after last modification) on Mon10/13/23 at 2215, Until Discontinued, Give prior meropenem 2219 (Given - Provider: Dashawn Naranjo RN) 0419 (Given - Provider: Dashawn Naranjo RN)1223 (Not Given - Provider: Jada Bach RN - Reason: Other - Comment: pt is discharging) exemestane (AROMASIN) tablet 25 mg 25 mg, Oral, Daily with supper, First dose on Mon10/14/23 at 1700, Until Discontinued, Give with food MED STORED in CDU Pyxis-Patient Specific Bin Patient's Own Exemestane 25 mg tablets take one tablet by mouth daily with supper Identified Quantity: #14 Med Identified by: GAIL 10/13/23 Please send medication home with patient upon discharge ANTINEOPLASTIC AGENT: wear single chemotherapy approved gloves. Do not open or split. If crushing, use approved closed-system crushing device for hazardous medications. Initiate hazardous drug (HD) protocol for 48 hours. Administration by approved chemotherapy RN only. gabapentin (NEURONTIN) capsule 300 mg 300 mg, Oral, 3 times daily, First dose on Mon10/13/23 at 2245, Until Discontinued 221 (Given - Provider: Dashawn Naranjo RN) 08 (Given - Provider: Jada Bach RN) insulin glargine (LANTUS) injection 32 Units 32 Units, Subcutaneous, Every morning, First dose (after last modification) on 10/14/23 at 0700, Until Discontinued 075 (Given - Provid er: Jada Bach RN) insulin lispro (HUMALOG) injection 0-16 Units(Linked Group 1) 0-16 Units, Subcutaneous, 3 times daily before meals, First dose on 10/14/23 at 0700, Until Discontinued, Blood Glucose (USUAL Dosing): [Less than 70:? Initiate Hypoglycemia Standing Orders] [71-140: ? 0 units] [141-180:? 4 units] [181-220:? 6 units] [221-260:? 8 units] [261-300:? 10 units] [301-350:? 12 units] [351-400:? 14 units] [Greater than 400:? 16 units and Call Physician] 0809 (Given - Provid er: Jada Bach RN)1230 (Given - Provider: Jada Bach RN) insulin lispro (HUMALOG) injection 0-8 Units(Linked Group 1) 0-8 Units, Subcutaneous, Nightly at bedtime, First dose on Mon10/13/23 at 2230, Until Discontinued, Blood Glucose (USUAL Dosing): [Less than 70:? Initiate Hypoglycemia Standing Orders] [71-180:? 0 units] [181-220:? 3 units] [221-260:? 4 units] [261-300:? 5 units] [301-350:? 6 units] [351-400:? 7 units] [Greater than 400:? 8 units and Call Physician] 2235 (Not Given - Provider: Dashawn Naranjo RN - Reason: Order parameters not met) meropenem (MERREM) 1 g in sodium chloride 0.9 % 50 mL IVPB (COMPLETED) 1 g, Intravenous, at 100 mL/hr, Once, 1 dose, On Mon10/13/23 at 2000, Administer over 30 minutes. 2003 (Not Given - Provider: Kimberly Pineda RN - Reason: Other - Comment: pt reports she is allergic to medication)2023 (New Bag - Provider: Kimberly Pineda, NURIS)2101 (Infusion Stop Time - Provider: Kimberly Pineda RN) meropenem (MERREM) 1 g in sodium chloride 0.9 % 50 mL IVPB 1 g, Intravenous, at 16.67 mL/hr, Every 8 hours, First dose (after last reorder) on Mon10/13/23 at 0400, Until Discontinued 0507 (New Bag - Provider: Dashawn Naranjo RN)0804 (Infusion Stop Time - Provider: Jada Bach RN)1224 (Not Given - Provider: Jada Bach RN - Reason: Other - Comment: Pt is discharging on oral ABX) methenamine (HIPREX) tablet 1 g 1 g, Oral, 2 times daily, First dose on Mon10/13/23 at 2245, Until Discontinued, MED STORED in CDU Pyxis-Patient Specific Bin Patient's Own Methenamine 1g - take 1 tablet by mouth twice daily Identified Quantity: #26 Med Identified by: 10/13/23 Please send medication home with patient upon discharge 0119 (Not Given - Provider: Dashawn Naranjo RN - Reason: Medication not available)0810 (Given - Provider: Jada Bach RN) rivaroxaban (XARELTO) tablet 20 mg 20 mg, Oral, Every evening, Indications: Atrial Fibrillation, First dose on Mon10/13/23 at 2100, Until Discontinued 2218 (Given - Provider: Dashawn Naranjo RN) rOPINIRole (REQUIP) tablet 5 mg 5 mg, Oral, Nightly at bedtime, First dose on Mon10/13/23 at 2100, Until Discontinued 2219 (Given - Provider: Dashawn Naranjo RN) solifenacin (VESICARE) tablet 10 mg 10 mg, Oral, Daily, First dose on 10/14/23 at 0900, Until Discontinued, Do not break, chew, or crush. 0804 (Given - Provid er: Jada Bach RN) PRN Medication Order 10/12/2023 10/13/2023 10/14/2023 albuterol sulfate HFA 108 (90 Base) MCG/ACT inhaler 2 puff 2 puff, Inhalation, Every 4 hours PRN, Wheezing, Shortness of breath, Starting on Mon10/13/23 at 2039, Until 10/14/23 at 1441 HYDROcodone-acetaminophen (NORCO) 10-325 MG tablet 1 tablet 1 tablet, Oral, Every 6 hours PRN, Moderate pain (Scale 4 - 7), Severe pain (Scale 8 - 10), Starting on Mon10/13/23 at 221, Until 10/14/23 at 1441, Maximum dose of acetaminophen is 4000 mg from all sources in 24 hours. 221 (Given - Provider: Dashawn Naranjo RN) 0419 (Given - Provider: Dashawn Naranjo RN)1031 (Given - Provider: Jada Bach, NURIS) menthol-methyl salicylate (MUSCLE RUB) 10-15 % cream Topical, 3 times daily PRN, Pain, Starting on 10/14/23 at 0358, Until 10/14/23 at 1441, Apply topically to affected area(s) 3 times daily as needed for pain naLOXone (NARCAN) injection 0.4 mg 0.4 mg, Intravenous, As needed, Opioid reversal, Starting on Mon10/13/23 at 2150, Until 10/14/23 at 1441 ondansetron (ZOFRAN) injection 4 mg 4 mg, Intravenous, Every 8 hours PRN, Nausea, Vomiting, Starting on Mon10/13/23 at 2036, Until 10/14/23 at 1441, IV push over 2-5 minutes. 2223 (Given - Provider: Dashawn Naranjo RN) Linked Groups Order Group 1: insulin lispro (HUMALOG) injection 0-16 UnitsJump to med 0-16 Units, Subcutaneous, 3 times daily before meals, First dose on Mon10/14/23 at 0700, Until Discontinued, Blood Glucose (USUAL Dosing): [Less than 70:? Initiate Hypoglycemia Standing Orders] [71-140: ? 0 units] [141-180:? 4 units] [181-220:? 6 units] [221-260:? 8 units] [261-300:? 10 units] [301- 350:? 12 units] [351-400:? 14 units] [Greater than 400:? 16 units and Call Physician] And insulin lispro (HUMALOG) injection 0-8 UnitsJump to med 0-8 Units, Subcutaneous, Nightly at bedtime, First dose on Mon10/13/23 at 2230, Until Discontinued, Blood Glucose (USUAL Dosing): [Less than 70:? Initiate Hypoglycemia Standing Orders] [71-180:? 0 units] [181-220:? 3 units] [221-260:? 4 units] [261-300:? 5 units] [301-350:? 6 units] [351-400:? 7 units] [Greater than 400:? 8 units and Call Physician] documented in this encounter Care Teams Electrical And Instrumentation Manager Relationship Specialty Start Date End Date Gerardo Hoffman MD [address] [facility] [address] [place] [address] PCP - General FAMILY PRACTICE 08/20/17 Meena Bansal MD [address] [facility] [address] [place] [address] [place] [employer] CARDIOVASCULAR DISEASE 04/24/16 documented as of this encounter
--- OUTSIDE RECORDS SUMMARY | 2024-04-26 02:40 | XMS_ITS | Encounter Summary ---
Author Organization [facility] Address [address] [place] [address]. [place] [address] [place] [address] Care Team Providers Care Patient Relations Director Name Role Phone Meena Bansal MD Unavailable [phone] Justen Gale MD Primary Care Provider [phone] Reason for Referral * Imaging (Routine) - Closed Specialty Diagnoses / Procedures Referred By Contac t Referred To Contact RADIOLOGY Diagnoses Pain in both lower extremities Procedures USV DIAZ DUPLEX LOW EXT YANNICK Leah Mackay NP Phone: tel: fax: Referral ID Status Reason Start Date Expiration Date Visits Re quested Visits Authorized [id number] Closed 05/31/2021 07/01/2022 1 1 K PLUG TESTER Reason for Visit * Imaging (Routine) - Closed Specialty Diagnoses / Procedures Referred By Contac makayla Referred To Contact RADIOLOGY Diagnoses Pain in both lower extremities Procedures USV DIAZ DUPLEX LOW EXT YANNICK Leah Mackay NP Phone: tel: fax: Referral ID Status Reason Start Date Expiration Date Visits Re quested Visits Authorized [id number] Closed 05/31/2021 07/01/2022 1 1 Encounter Details Date Type Department Care Team (Late st Contact Info) Description 06/01/2021 6:35 AM SPARK PLUG TESTER - 06/01/2021 11:59 PM SPARK PLUG TESTER Hospital Encounter [facility] [place] [address] [place] [address] Leah Mackay NP [address] [address] Discharge Disposition: Home or Self Care (Routine [...] Sexual Orientation Straight 03/18/2018 3: 01 AM SPARK PLUG TESTER COVID-19 Exposure Response Date Recorded In the last 10 days, have yo u been in contact with someone who was confirmed or suspected to have Coronavirus/COVID-19? No / Unsure 05/31/2021 6:26 PM SPARK PLUG TESTER documented as of this encounter Functional Status [...] Saez RN Active documented in this encounter Medications at Time [...] needed for Nausea. 20 tablet 07/20/19 22 oxybutynin 5 MG tablet Take 5 mg by mouth 2 (two) times daily. 10/13/19 24 sucralfate 1 G tablet Take 1 tablet (1 g total) by mouth 4 (four) times daily. 120 tablet 10/13/19 24 documented as of this encounter Plan of Treatment Not on file documented as of this encounter Procedures Procedure Name Priority Date/Time Associated Diagnosis Comments USV DIAZ DUPLEX LOW EXT YANNICK Routine 06/01/2021 7:37 AM SPARK PLUG TESTER Pain in both lower extremities documented in this encounter Results * USV DIAZ DUPLEX LOW EXT YANNICK (06/01/2021 7:37 AM SPARK PLUG TESTER) Anatomical Region Laterality Modality Extremity Vascular Ultraso und 06/01/2021 7:21 AM SPARK PLUG TESTER Narrative 2021 5:29 PM SPARK PLUG TESTER ?VENOUS DUPLEX IMAGING ?BILATERAL LOWER EXTREMITY ? VASCULAR LAB Pat.Name: ??MOHSEN SALAZAR ?Pat.ID: ?[id number] ? St.Date: ?? 06/01/2021 ?Refer.: ??Justen Gale ? Exam Time: 7:21:00 AM ? Study Type:EUGENIO VS Venous Duplex Legs YANNICK Height: ?61in ?Age: ??1955,65Y ? Sex: ? FEMALE ?Sonogrphr: JESSICA Wild ? Pat. Stat.:Outpatient ? History / Clinical:LLE anterior calf pain thats worse at night; on xarelto; Hx DVT/PE; PMH- BMI 54, neurop, CVA, HTN, HLD, DM, hx breast CA, xtob, COVID, no prior Procedures: Avila scale, Color Doppler imaging, Doppler Spectral Analysis Race: ?W ? ++++++++++++++++++++++++++++++++++++ SUMMARY: ++++++++++++++++++++++++++++++++++++ Right leg: ??There are NO apparent, deep or superficial vein, ACUTE character venous filling defects visualized in the femoral, popliteal, deep calf or proximal saphenous veins. Resting venous flow is normal phasic proximally. ??No valve reflux with compression maneuvers is detected in the femoral and popliteal veins. Left leg: ??There are NO apparent, deep or superficial vein, ACUTE character ??venous filling defects visualized in the femoral, popliteal, deep calf or proximal saphenous veins. ? Resting venous flow is normal phasic proximally. ??No valve reflux with compression maneuvers is detected in the femoral and popliteal veins. CONCLUSION: Normal study bilateral lower extremity, with no evidence of acute deep or superficial vein thrombosis. ?? There is no significant reflux detected. ? ++++++++++++++++++++++++++++++++++++ FINDINGS: ++++++++++++++++++++++++++++++++++++ Signed 2021 05:29 PM Jeremías Danielson M.D. Procedure Note Jeremías Danielson MD - 2021 VENOUS DUPLEX IMAGING BILATERAL LOWER EXTREMITY VASCULAR LAB Pat.Name: MOHSEN SALAZAR Pat.ID: [id number] .Date: 06/01/2021 Refer.MD: Justen Gale Exam Time: 7:21:00 AM Study Type:EUGENIO VS Venous Duplex Legs YANNICK Height: 61in Age: 2 1955,65Y Sex: FEMALE Sonogrphr: JESSICA Wild Pat. Stat.:Outpatient History / Clinical:LLE anterior calf pain thats worse at night; on xarelto; Hx DVT/PE; PMH- BMI 54, neurop, CVA, HTN, HLD, DM, hx breast CA, xtob, COVID, no prior Procedures: Avila scale, Color Doppler imaging, Doppler Spectral Analysis Race: W ++++++++++++++++++++++++++++++++++++ SUMMARY: ++++++++++++++++++++++++++++++++++++ Right leg: There are NO apparent, deep or superficial vein, ACUTE character venous filling defects visualized in the femoral, popliteal, deep calf or proximal saphenous veins. Resting venous flow is normal phasic proximally. No valve reflux with compression maneuvers is detected in the femoral and popliteal veins. Left leg: There are NO apparent, deep or superficial vein, ACUTE character venous filling defects visualized in the femoral, popliteal, deep calf or proximal saphenous veins. Resting venous flow is normal phasic proximally. No valve reflux with compression maneuvers is detected in the femoral and popliteal veins. CONCLUSION: Normal study bilateral lower extremity, with no evidence of acute deep or superficial vein thrombosis. There is no significant reflux detected. ++++++++++++++++++++++++++++++++++++ FINDINGS: ++++++++++++++++++++++++++++++++++++ Signed 2021 05:29 PM Jeremías Danielson M.D. us Leah Mackay DIRECTOR OF EMERGENCY NURSING VASC Final Result documented in this encounter Visit Diagnoses Diagnosis Pain in both lower extremities documented in this encounter Care Teams Patient Relations Director Relationship Specialty Start Date End Date Justen Gale MD [facility] [address] [place], [place] [address] PCP - General FAMILY PRACTICE 08/20/17 Meena Bansal MD [address] [place], [place] [address] [place] Site Acquisition Manager CARDIOVASCULAR DISEASE 04/24/16 documented as of this encounter
--- OUTSIDE RECORDS SUMMARY | 2024-04-26 02:40 | XMS_ITS | Encounter Summary ---
Author Organization [facility] Address [address] [place] [address]. [place] [address] [place] [address] Care Team Providers Care Back Feeder Plywood Layup Line Name Role Phone Meena Bansal MD Unavailable [phone] Justen Gale MD Primary Care Provider [phone] Encounter Details Date Type Department Care Team (Latest Contact Info) Description 05/31/2021 Travel Social History Tobacco Use Types Packs/Day [...] Sexual Orientation Straight 03/18/2018 3: 01 AM CARBON COATER MACHINE OPERATOR COVID-19 Exposure Response Date Recorded In the last 10 days, have jenny u been in contact with someone who was confirmed or suspected to have Coronavirus/COVID-19? No / Unsure 05/31/2021 6:26 PM CARBON COATER MACHINE OPERATOR documented as of this encounter Functional Status [...] on filedocumented in this encounter Care Teams Back Feeder Plywood Layup Line Relationship Specialty Start Date End Date Justen Gale MD [address] [address] PCP - General FAMILY PRACTICE 08/20/17 Meena Bansal MD [facility]. [facility] [address] [place] [address] [place] Java Web Architect CARDIOVASCULAR DISEASE 04/24/16 documented as of this encounter
--- OUTSIDE RECORDS SUMMARY | 2024-04-26 02:40 | XMS_ITS | Encounter Summary ---
Author Organization [facility] Address [address] [place] [address]. [place] [address] [place] [address] Care Team Providers Care Director Global Strategic Publisher Sales Name Role Phone Meena Bansal MD Unavailable [phone] Justen Gale MD Primary Care Provider [phone] Encounter Details Date Type Department Care Team (Latest Contact Info) Description 05/15/2021 Travel Social History Tobacco Use Types Packs/Day [...] Sexual Orientation Straight 03/18/2018 3: 01 AM FLIGHT ATTENDANT COVID-19 Exposure Response Date Recorded In the last month, have you been in contact with someone who was confirmed or suspected to have Coronavirus / COVID-19? Yes 05/15/2021 2:21 PM FLIGHT ATTENDANT documented as of this encounter Functional Status [...] on filedocumented in this encounter Care Teams Director Global Strategic Publisher Sales Relationship Specialty Start Date End Date Justen Gale MD [facility]. [address] [address] PCP - General FAMILY PRACTICE 08/20/17 Meena Bansal MD [facility]. [address] [address] [place] Luis Operation Research Analyst CARDIOVASCULAR DISEASE 04/24/16 documented as of this encounter
--- OUTSIDE RECORDS SUMMARY | 2024-04-26 02:40 | XMS_ITS | Encounter Summary ---
Author Organization [facility] Address [address] [place] [address]. [place] [address] [place] [address] Care Team Providers Care Dress Cap Maker Name Role Phone Meena Bansal MD Unavailable [phone] Justen Gale MD Primary Care Provider [phone] Reason for Visit * Reason Comments Chest Pain Suspected Coronavirus (Covid-19) Encounter Details Date Type Department Care Team (Late st Contact Info) Description 04/19/2021 8:17 PM MEDICAL INTERN - 04/19/2021 11:30 PM MEDICAL INTERN Emergency [facility] Emergency Room [place], [place] [id number] Jaswinder Gaytan MD [address] [place] [address] Chest Pain; Suspected Coronavirus (Covid-19) Discharge Disposition: Home or Self Care (Routine [...] Sexual Orientation Straight 03/18/2018 3: 01 AM MEDICAL INTERN COVID-19 Exposure Response Date Recorded In the last month, have you been in contact with someone who was confirmed or suspected to have Coronavirus / COVID-19? Yes 04/19/2021 8:07 PM MEDICAL INTERN documented as of this encounter Last Filed Vital Signs Vital Sign Reading Time Taken Comments Blood Pressure 163/77 04/19/2021 8:12 PM MEDICAL INTERN Pulse 90 04/19/2021 8:12 PM MEDICAL INTERN Temperature 36.6 ??C (97.8 ??F) 04/19/2021 8:12 PM CS T Respiratory Rate 24 04/19/2021 8:12 PM MEDICAL INTERN Oxygen Saturation 99% 04/19/2021 8:12 PM MEDICAL INTERN Inhaled Oxygen Concentration - - Weight 125.2 kg (276 lb) 04/19/2021 8:12 PM MEDICAL INTERN Height 154.9 cm (5' 1 ) 04/19/2021 8:12 PM MEDICAL INTERN Body Mass Index 52.15 04/19/2021 8:12 PM MEDICAL INTERN documented in this encounter Functional Status * [...] Assessment Author Status Yes 09/06/2020 12:55 AM CDDella Colindres RN Active documented as of this encounter Mental Status * Because of a physical, mental, or emotional condition, do you have serious difficulty concentrating, remembering, or making decisions? Answer Entry Date Author Status No 09/06/2020 12:55 AM Della Saez RN Active documented in this encounter Discharge Instructions * Discharge Instructions* Jaswinder Gaytan MD - 04/19/2021 10:58 PM MEDICAL INTERN Your symptoms indicate that you may have coronavirus disease 2019 (COVID-19). You should assume that you have the disease and that you are VERY contagious. Remain in isolation for at least 14 days (may be longer if you continue to have fevers). If your symptoms are worsening (such as developing shortness of breath, chest pain, or confusion) please call ahead to your local emergency room to let them know you are coming so that they can prepare, or let the EMS crew know on their arrival that youmay have COVID-19 so that they can wear appropriate protection. Remain isolated from others in yourhome, cover any coughs/sneezes, do not share common household items (such as cups and silverware) and wash hands frequently. Emergency Departments (ED) provide medical screening exams [...] care by your primary care physician or j2ee consultant. Your medication list was reviewed prior [...] such as many narcotic drug combinations and qvki-mko-xxtowma cold medicines. Your feedback is important to us. Please fill out the survey you will get in the mail. We need yourinput to give you the best care possible! With your feedback we??ll know where we need to focus ourefforts to provide very good service to our patients! CAL INTERN * Attachments The following attachments cannot be sent through Care Everywhere. * COVID-19 Discharge Instructions (Salvadorean) * Viral Syndrome Discharge Instructions (Salvadorean) documented in this encounter Medications at Time [...] 1 unit for every 15 mg/dl >140 PULSE OXIMETER, DME, Please use the pulse [...] mg total) by mouth daily. 30 tablet 12/10/13/19 24 dextromethorphan ER 30 MG/5ML liquid Take 5 mLs (30 mg total) by mouth every 12 (twelve) hours as needed (Cough and/or sore throat). 280 mL 10/13/19 24 diclofenac EC 75 MG tablet Take 1 tablet (75 mg total) by mouth 2 (two) times daily as needed (Pain. Please take with meals). 30 tablet 1 10/13/19 24 famotidine 20 MG tablet Take 1 tablet (20 mg total) by mouth 2 (two) times daily. 60 tablet 10/13/19 24 lisinopril 20 MG tablet Take [...] as of this encounter ED Notes * Jaswinder Gaytan MD - 04/19/2021 11:00 PM CST Chief Complaint Chief Complaint Patient presents with ??? Chest Pain ??? Suspected Coronavirus (Covid-19) History of Present Illness NOTE: This patient was cared for in the middle of an unusual surge in emergency department census directly related to the SARS-2/COVID-19 pandemic. This chart was completed after the date of care. Notes, personal recollection, and other medical documentation were used in its generation, but laboratory studies, radiographic imaging reports, and ECGs reported below may not have been available to meat the time of service. The patient is a very pleasant 65-year-old female examined in the emergency department in bed #24. She presents today via EMS complaining of midsternal chest pain that began on the afternoon of presentation. The patient is complaining of a headache, chills, and fever throughout the day of presentation. Of note, the patient was exposed to a person having tested positive for a COVID-19/[id number] infection on 16 April. Of further note, the patient is vaccinated against COVID-19 virus infections. No clear palliative or provoking factors are identified. Quality is as described above. Thereis no radiation. Severity is moderate. The time course is constant since onset and worsening. Medical History ALLERGIES: Allergies Allergen Reactions ??? [...] of breath. 04/19/21 Yes Jaswinder Gaytan MD aspirin 325 MG tablet Take 1 tablet (325 mg total) by mouth daily. 04/19/21 Yes Jaswinder Gaytan MD dextromethorphan ER 30 MG/5ML liquid Take 5 mLs (30 mg total) by mouth every 12 (twelve) hours as needed (Cough and/or sore throat). 04/19/21 Yes Jaswinder Gaytan MD diclofenac EC 75 MG tablet Take 1 tablet (75 mg total) by mouth 2 (two) times daily as needed (Pain. Please take with meals). 04/19/21 Yes Jaswinder Gaytan MD ondansetron 4 MG disintegrating tablet Take 1 tablet (4 mg total) by mouth every 4 (four) hours as needed for Nausea. 04/19/21 Yes Jaswinder Gaytan MD PULSE OXIMETER, DME, Please use the pulse oximeter when you are short of breath. If your reading isless than 85% after exerting yourself, or less than 90% at rest, please return to the emergency department. If you feel you are in immediate danger, please call 911. 04/19/21 Yes Jaswinder Gaytan MD amitriptyline 25 MG [...] of Systems REVIEW OF SYSTEMS: The patient complains of fevers, and chills, denies sweats. Complains of nausea,denies vomiting, diarrhea, constipation, or abdominal pain. Complains of chest pain, shortness of breath, and dyspnea on exertion, denies palpitations. Complains of headache, denies loss of consciousness, or seizures. Denies dysuria or hematuria. Ten systems reviewed and negative except as described above or in the HPI. Physical Exam Filed Vitals: 04/19/212011 BP: (!) 163/77 Pulse: 90 Resp: 24 Temp: 97.8 ??F (36.6 ??C) TempSrc: Temporal SpO2: 99% Weight: 125.2 kg (276 lb) Height: 5' 1 (1.549 m) Physical Exam VITALS: Reviewed. Hypertension noted. The patient does not meet SIRS criteria. GENERAL: The patient is a very pleasant [...] and also without discharge. Mucous membranes are slightly dry. NECK: No JVD, tracheal deviation, or subcutaneous emphysema is noted. The bony spine is nontender. CHEST: The thoracic cage is stable to palpation and nontender. LUNGS: Clear to auscultation bilaterally without wheezes, rales or rhonchi. Equal inspiratory and expiratory phases. HEART: Regular rate and rhythm, normal sounds. ABDOMEN: Soft, nontender, and nondistended. No masses, bruits or hepatosplenomegaly are noted. 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 Other ischemic changes, not STEMI CRITICAL ALERT ISSUED ON 04-19-2021 20:27:48 CAL INTERN LABORATORY STUDIES: Results for orders placed or performed during the hospital encounter of 04/19/21 CBC W/DIFF AUTOMATED Result Value Ref Range WBC 7.8 4.5 - 11.0 x10'3/uL RBC 4.30 4.20 - 5.40 x10'6/uL HGB 12.4 12.0 - 16.0 G/DL HCT 39.4 38.0 - 48.0 % MCV 91.6 81.0 - 99.0 FL MCH 28.8 27.0 - 31.0 PG MCHC 31.5 (L) 32.0 - 36.0 G/DL RDW 13.6 11.5 - 14.5 % PLT 251 130 - 400 x10'3/uL MPV 10.0 9.3 - 12.2 FL DIFFERENTIAL TYPE AUTOMATED DIFFERENTIAL NEUTROPHILS 76.3 % LYMPHOCYTES 10.0 % MONOCYTES 11.1 % EOSINOPHILS 1.5 % BASOPHILS 0.3 % IMMATURE GRANS 0.8 % ABS. NEUTROPHILS TOTAL 5.98 1.80 - 7.70 x10'3/uL ABS. LYMPHOCYTES 0.78 (L) 1.00 - 4.80 x10'3/uL ABS. MONOCYTES 0.87 (H) 0.24 - 0.86 x10'3/uL ABS. EOSINOPHILS 0.12 0.04 - 0.36 x10'3/uL ABS. BASOPHILS 0.02 0.01 - 0.08 x10'3/uL ABS. IMMATURE GRANULOCYTES 0.06 0.00 - 0.49 x10'3/uL COMPREHENSIVE METABOLIC PANEL Result Value Ref Range GLUCOSE 94 70 - 99 MG/DL BUN 14 7 - 18 MG/DL CREATININE S/P/B 0.78 0.55 - 1.02 MG/DL SODIUM 140 136 - 145 MMOL/L POTASSIUM 4.2 3.5 - 5.1 MMOL/L CHLORIDE S/P/B 107 100 - 108 MMOL/L CO2 27.2 21 - 32 MMOL/L CALCIUM 9.2 8.5 - 10.1 MG/DL BILIRUBIN TOTAL S/P/B 0.4 0.2 - 1.2 MG/DL TOTAL PROTEIN S/P/B 8.2 6.4 - 8.2 G/DL ALBUMIN S/P/B 3.1 (L) 3.4 - 5.0 G/DL AST 41 (H) 15 - 37 U/L ALT 38 14 - 55 U/L ALKALINE PHOSPHATASE S/P/B 65 50 - 136 U/L ANION GAP 5.8 5 - 15 MMOL/L BUN CREATININE RATIO 18.1 6 - 26 A/G RATIO 0.6 (L) 1.0 - 2.0 RATIO eGFR Non-Afr. Amer. 80 (L) >90 ML/MIN/1.73 M2 eGFR Afr. Amer. >90 >90 ML/MIN/1.73 M2 TROPONIN, QUANT Result Value Ref Range TROPONIN I HIGH SENSITIVITY 10 <54 ng/L CORONAVIRUS (COVID-19) INFLUENZA A & B ANTIGEN IA PANEL Specimen: NASAL Result Value Ref Range CORONAVIRUS ANTIGEN IA POSITIVE (AA) NEGATIVE INFLUENZA A NEGATIVE NEGATIVE INFLUENZA B NEGATIVE NEGATIVE Specimen Type NASAL FIRST TEST NO EMPLOYED IN HEALTHCARE NO SYMPTOMATIC DEFINED BY CDC YES DATE OF SYMPTOM ONSET [id number] HOSPITALIZATION STATUS UNKNOWN RESIDENT OF [facility] NO IMAGING STUDIES: XR CHEST PORTABLE Final Result by User, [id number] (04/19 2109) Examination: XR CHEST PORTABLE Exam time: 04/19/2021 8:47 PM Clinical history: Right arm pain radiating to chest since yesterday. Comparison: 03/03/2021 AP semiupright view Technique: AP upright view Findings: Cardiac silhouette and pulmonary vasculature are at the upper limits of normal in size. No evidence of focal pulmonary consolidation or significant atelectasis. Pulmonary interstitium within normal limits. No evidence of pleural effusion. Overall, no radiographic evidence of active chest disease. IMPRESSION: No radiographic evidence of active chest disease. Ordered By: JOANN CASILLAS Interpreted By: Bubba Bray MD, 04/19/2021 9:07 PM [employer]-based Incentive Payment System (MIPS) Quality Measure/Emergency Medicine Qualified Clinical Data Registry (E-CPR) Data: Not applicable ED Course / Medical Decision Making I estimate there is LOW risk for BACTERIAL PNEUMONIA, ACUTE CORONARY SYNDROME, CHRONIC OBSTRUCTIVE PULMONARY DISEASE, CONGESTIVE HEART FAILURE, PERICARDIAL TAMPONADE, PNEUMOTHORAX, PULMONARY EMBOLISM, SEPSIS, and THORACIC DISSECTION. The patient appears to have ACUTE VIRAL SYNDROME most likely related to a COVID-19/[id number] INFECTION. They have been ambulated in the emergency department without significant desaturation, thus I consider the discharge disposition reasonable. Also, there is no evidence for peritonitis, sepsis, or toxicity. Paxlovid/molnupiravir/sotrovimab, and or monoclonal antibodies were considered as treatment options for this patient based on their risk profile, however, these treatments are not currently available in our community. We have discussed the diagnosis and risks, and we agree with discharging home to follow- up with their primary doctor. We also discussed returning to the Emergency Department immediately if new or worsening symptoms occur. We have discussed the symptoms which are most concerning (e.g., changing or worsening pain, trouble swallowingor breathing, neck stiffness, fever) that necessitate immediate return. Clinical Impression COVID-19 virus infection (Primary) Acute viral syndrome Disposition: Discharge I dictated portions of this note using Boat[employer] speech recognition software. Occasional wrong word or sound-alike substitutions may have occurred due to the inherent limitations of voice recognition software. Please read the chart carefully and recognize, using context, where the substitutions may have occurred. If there are any questions, please contact me via [employer] or other HIPAA compliant communication medium for clarification. Jaswinder Gaytan MD 05/20/21 0709 CAL INTERN * DICK Woods - 04/19/2021 10:51 PM CST Bed: 24 Expected date: Expected time: Means of arrival: Comments: CAL INTERN * HUMAIRA Holder - 04/19/2021 8:16 PM CST [place], [place] EMERGENCY DEPARTMENT ENCOUNTER Medical Screening Examination Chief Complaint : Chest Pain and Suspected Coronavirus (Covid-19) HPI : Mohsen Marques is a 65-year-old female who presents *chest pain, difficulty breathing Vital Signs: Filed Vitals: 04/19/212011 BP: (!) 163/77 Pulse: 90 Resp: 24 Temp: 97.8 ??F (36.6 ??C) TempSrc: Temporal SpO2: 99% Weight: 125.2 kg (276 lb) Height: 5' 1 (1.549 m) Physical exam: A brief physical exam was completed to facilitate/expedite patient care. Mitchell findings include: *Dyspneic, not hypoxic Plan: Labs & Imaging was ordered to facilitate patient care. and EKG was ordered to faciliate patient care. HUMAIRA Holder 04/19/212015 Cosigned by Jhon Carrizales MD at 04/19/2021 11:24 PM MEDICAL INTERN CAL INTERN CAL INTERN * Heaven Romero RN - 04/19/2021 8:10 PM CST Pt arriving via EMS from home c/o mid sternal chest pain starting this afternoon. Pt reports headache, chills, fever since this morning. Pt was exposed to COVID on the . Pt is COVID vaccinated.HEAVEN ROMERO RN CAL INTERN documented in this encounter Plan of Treatment Not on file documented as of this encounter Procedures Procedure Name Priority Date/Time Associated Diagnosis Comments XR CHEST PORTABLE STAT 04/19/2021 8:5 5 PM MEDICAL INTERN CORONAVIRUS (COVID-19) INFLUENZA A & B ANTIGEN IA PANEL STAT 04/19/2021 8:40 PM MEDICAL INTERN COMPREHENSIVE METABOLIC PANEL STAT 04/19/2021 8:38 PM MEDICAL INTERN CBC W/DIFF AUTOMATED STAT 04/19/2021 8:38 PM MEDICAL INTERN TROPONIN, QUANT STAT 04/19/2021 8:38 PM MEDICAL INTERN ECG 12-LEAD STAT 04/19/2021 8:23 PM MEDICAL INTERN documented in this encounter Results * XR CHEST PORTABLE (04/19/2021 8:55 PM MEDICAL INTERN) Anatomical Region Laterality Modality Chest Radiographic Lizeth ging 04/19/2021 9:07 PM MEDICAL INTERN Impressions 04/19/2021 9:08 PM MEDICAL INTERN IMPRESSION: No radiographic evidence of active chest disease. Ordered By: JOANN CASILLAS Interpreted By: Bubba Bray MD, 04/19/2021 9:07 PM Narrative 04/19/2021 9:08 PM MEDICAL INTERN Examination: XR CHEST PORTABLE Exam time: 04/19/2021 8:47 PM Clinical history: Right arm pain radiating to chest since yesterday. Comparison: 03/03/2021 AP semiupright view Technique: AP upright view Findings: Cardiac silhouette and pulmonary vasculature are at the upper limits of normal in size. No evidence of focal pulmonary consolidation or significant atelectasis. Pulmonary interstitium within normal limits. No evidence of pleural effusion. Overall, no radiographic evidence of active chest disease. Procedure Note Bubba Bray MD - 04/19/2021 Examination: XR CHEST PORTABLE Exam time: 04/19/2021 8:47 PM Clinical history: Right arm pain radiating to chest since yesterday. Comparison: 03/03/2021 AP semiupright view Technique: AP upright view Findings: Cardiac silhouette and pulmonary vasculature are at the upperlimits of normal in size. No evidence of focal pulmonary consolidation orsignificant atelectasis. Pulmonary interstitium within normal limits. Noevidence of pleural effusion. Overall, no radiographic evidence of activechest disease. IMPRESSION: No radiographic evidence of active chest disease. Ordered By: JOANN CASILLAS Interpreted By: Bubba Bray MD, 04/19/2021 9:07 PM Joann Casillas CODING MANAGER GENERAL IMAGING Final Resul t * (ABNORMAL) CORONAVIRUS (COVID-19) INFLUENZA A & B ANTIGEN IA PANEL (04/19/2021 8:40 PM MEDICAL INTERN) CORONAVIRUS ANTIGEN IA POSITIVE(AA ) NEGATIVE 04/19/2021 10:14 PM MEDICAL INTERN [facility] Comment: THIS TEST HAS BEEN AUTHORIZED BY THE FDA UNDER AN EMERGENCY USE AUTHORIZATION (EUA) FOR USE BY AUTHORIZED LABORATORIES. Successful Call: [id number] called 04/19/2021 10:16 PM to EMERGENCY ROOM ([id number]/JOSE LOPEZ) by [id number]. Read Back: Yes INFLUENZA A NEGATIVE NEGATIVE 04/19/2021 10:14 PM MEDICAL INTERN [facility] INFLUENZA B NEGATIVE NEGATIVE 04/19/2021 10:14 PM MEDICAL INTERN [facility] Comment: Interpretation: Negative for Influenza A [...] testing with RT-PCR requires a separate order. SPECIMEN TYPE NASAL 04/19/2021 8:40 PM MEDICAL INTERN [facility] FIRST TEST NO 04/19/2021 8:40 PM MEDICAL INTERN [facility] EMPLOYED IN HEALTHCARE NO 04/19/2021 8:40 PM MEDICAL INTERN [facility] SYMPTOMATIC DEFINED BY CDC YES 04/19/2021 8:40 PM MEDICAL INTERN [facility] DATE OF SYMPTOM ONSET 2021041604/19/2021 8:40 PM MEDICAL INTERN [facility] HOSPITALIZATION STATUS UNKNOWN 04/19/2021 8:40 PM MEDICAL INTERN [facility] RESIDENT OF [facility] NO 04/19/2021 8:40 PM MEDICAL INTERN [facility] NASAL STRUCTURE / Unknown 04/19/2021 8:40 PM MEDICAL INTERN Joann Casillas CODING MANAGER MICROBIOLOGY - GENERAL ORDNicholas SPEARS Final Result [facility] [address] [place] [address], * TROPONIN, QUANT (04/19/2021 8:38 PM MEDICAL INTERN) TROPONIN I HIGH SENSITIVITY 10 <54 ng/L 04/19/2021 9:22 PM MEDICAL INTERN [facility] Comment: HIGH DOSES OF BIOTIN, TROPONIN-SPECIFIC AUTOANTIBODIES, AND ANTIBODY THERAPY CONTAINING HAMA MAY INTERFERE WITH THIS TEST RESULT. CORRELATION TO CLINICAL HISTORY AND PRESENTATION RECOMMENDED. 04/19/2021 8:38 PM MEDICAL INTERN Joann Casillas [facility] Final Resul t [facility] [address] [place] [address], [place] [phone] * (ABNORMAL) COMPREHENSIVE METABOLIC PANEL (04/19/2021 8:38 PM MEDICAL INTERN) [facility] GLUCOSE 94 70 - 99 MG/DL 04/19/2021 9:22 PM MEDICAL INTERN [facility] BUN 14 7 - 18 MG/DL 04/19/2021 9:22 PM MEDICAL INTERN [facility] CREATININE S/P/B 0.78 0.55 - 1.02 MG/DL 04/19/2021 9:22 PM MEDICAL INTERN [facility] SODIUM S/P/B 140 136 - 145 MMOL/L 04/19/2021 9:22 PM MEDICAL INTERN [facility] POTASSIUM S/P/B 4.2 3.5 - 5.1 MMOL/L 04/19/2021 9:22 PM [facility] Comment:SLIGHT HEMOLYSIS, RE SULT MAY BE AFFECTED. CHLORIDE S/P/B 107 100 - 108 MMOL/L 04/19/2021 9:22 PM MEDICAL INTERN [facility] CO2 27.2 21 - 32 MMOL/L 04/19/2021 9:22 PM MEDICAL INTERN [facility] CALCIUM S/P/B 9.2 8.5 - 10.1 MG/DL 04/19/2021 9:22 PM MEDICAL INTERN [facility] BILIRUBIN TOTAL S/P/B 0.4 0.2 - 1.2 MG/DL 04/19/2021 9:22 PM MEDICAL INTERN [facility] Comment: THIS ASSAY IS NOT RECOMMENDED FOR PATIENTS UNDERGOING TREATMENT WITH ELTROMBOPAG DUE TO THE POTENTIAL FOR FALSELY ELEVATED RESULTS. TOTAL PROTEIN S/P/B 8.2 6.4 - 8.2 G/DL 04/19/2021 9:22 PM [facility] ALBUMIN S/P/B 3.1(L) 3.4 - 5.0 G/DL 04/19/2021 9:22 PM [facility] AST 41(H) 15 - 37 U/L 04/19/2021 9:22 PM [facility] Comment:SLIGHT HEMOLYSIS, RE SULT MAY BE AFFECTED. ALT 38 14 - 55 U/L 04/19/2021 9:22 PM [facility] ALKALINE PHOSPHATASE S/P/B 65 50 - 136 U/L 04/19/2021 9:22 PM [facility] ANION GAP 5.8 5 - 15 MMOL/L 04/19/2021 9:22 PM [facility] BUN CREATININE RATIO 18.1 6 - 26 04/19/2021 9:22 PM [facility] A/G RATIO 0.6(L) 1.0 - 2.0 RATIO 04/19/2021 9:22 PM [facility] EGFR NON-AFR. AMER. 80(L) >90 ML/MIN/1.7 3 M2 04/19/2021 9:22 PM [facility] EGFR AFR. AMER. >90 >90 ML/MIN/1.7 3 M2 04/19/2021 9:22 PM [facility] Comment: NOTE: eGFR is not calculated for patients <18 years of age. This is an estimated GFR (CKD EPI) and should not be used for calculating drug doses. 04/19/2021 8:38 PM MEDICAL INTERN Joann OLGUINP LABORAT[facility] Final Resul t [facility] [address] [place] [address], * (ABNORMAL) CBC W/DIFF AUTOMATED (04/19/2021 8:38 PM MEDICAL INTERN) [facility] WBC 7.8 4.5 - 11.0 x10'3/uL 04/19/2021 8:58 PM MEDICAL INTERN [facility] RBC 4.30 4.20 - 5.40 x10'6/uL 04/19/2021 8:58 PM MEDICAL INTERN [facility] HGB 12.4 12.0 - 16.0 G/DL 04/19/2021 8:58 PM MEDICAL INTERN [facility] HCT 39.4 38.0 - 48.0 % 04/19/2021 8:58 PM MEDICAL INTERN [facility] MCV 91.6 81.0 - 99.0 FL 04/19/2021 8:58 PM MEDICAL INTERN [facility] MCH 28.8 27.0 - 31.0 PG 04/19/2021 8:58 PM MEDICAL INTERN [facility] MCHC 31.5(L) 32.0 - 36.0 G/DL 04/19/2021 8:58 PM MEDICAL INTERN [facility] RDW 13.6 11.5 - 14.5 % 04/19/2021 8:58 PM MEDICAL INTERN [facility] PLT 251 130 - 400 x10'3/uL 04/19/2021 8:58 PM MEDICAL INTERN [facility] MPV 10.0 9.3 - 12.2 FL 04/19/2021 8:58 PM [facility] DIFFERENTIAL TYPE AUTOMATED DIFFERENTIAL 04/19/2021 8:58 PM MEDICAL INTERN [facility] NEUTROPHILS % 76.3 % 04/19/2021 8:58 PM MEDICAL INTERN [facility] LYMPHOCYTES % 10.0 % 04/19/2021 8:58 PM MEDICAL INTERN [facility] MONOCYTES % 11.1 % 04/19/2021 8:58 PM MEDICAL INTERN [facility] EOSINOPHILS 1.5 % 04/19/2021 8:58 PM MEDICAL INTERN [facility] BASOPHILS 0.3 % 04/19/2021 8:58 PM MEDICAL INTERN [facility] IMMATURE GRANS % 0.8 % 04/19/20 8:58 PM MEDICAL INTERN [facility] ABS. NEUTROPHILS TOTAL 5.98 1.80 - 7.70 x10'3/uL 04/19/2021 8:58 PM MEDICAL INTERN [facility] ABS. LYMPHOCYTES 0.78(L) 1.00 - 4.80 x10'3/uL 04/19/2021 8:58 PM MEDICAL INTERN [facility] ABS. MONOCYTES 0.87(H) 0.24 - 0.86 x10'3/uL 04/19/2021 8:58 PM MEDICAL INTERN [facility] ABS. EOSINOPHILS 0.12 0.04 - 0.36 x10'3/uL 04/19/2021 8:58 PM MEDICAL INTERN [facility] ABS. BASOPHILS 0.02 0.01 - 0.08 x10'3/uL 04/19/2021 8:58 PM MEDICAL INTERN [facility] ABS. IMMATURE GRANULOCYTES 0.06 0.00 - 0.49 x10'3/uL 04/19/2021 8:58 PM MEDICAL INTERN [facility] 04/19/2021 8:38 PM MEDICAL INTERN us Jonan Casillas CODING MANAGER LABORATORY Final Resul t [facility] [address] [place] [address], * ECG 12 lead (04/19/2021 8:23 PM MEDICAL INTERN) 04/19/2021 8:23 PM MEDICAL INTERN Narrative [facility] - 04/20/2021 9:58 PM MEDICAL INTERN [facility] [place] ? [address] ? Test Date: ?2021-04-19 Pat Name: ? MOHSEN MARQUES ?Department: ? Room: ? EXAM24 Gender: ? Female ? [employer] Hand Finisher: ?? GDD : ?1955 ? Requested By: JOANN CASILLAS Order Number: [id number] ? Reading MD: ?? Jacek Navarro ? Measurements Intervals ?[place] ? Rate: ? 96 ? P: ?41 MN: ? 133 ?QRS: ?-1 QRSD: ? 87 ? T: ?29 QT: ? 328 ? QTc: ?415 ? Interpretive Statements SINUS RHYTHM Compared to ECG 03/03/2021 03:24:22 No significant changes Jaswinder Gaytan M.D. Other ischemic changes, not STEMI CRITICAL ALERT ISSUED ON 04-19-2021 20:27:48 CAL INTERN Procedure Note Jacek Navarro MD - 04/20/[address] Test Date: 2021-04-19 Pat Name: MOHSEN MARQUES Department: Room: [facility] Gender: Female [employer] Finisher: ISABELLA : 1955 Requested By: JOANN CASILLAS Order Number: [id number] Reading MD: Jacek Navarro Measurements Intervals [place] Rate: 96 P: 41 MN: 133 QRS: -1 QRSD: 87 T: 29 QT: 328 QTc: 415 Interpretive Statements SINUS RHYTHM Compared to ECG 03/03/2021 03:24:22 No significant changes Jaswinder Gaytan M.D. Other ischemic changes, not STEMI CRITICAL ALERT ISSUED ON 04-19-2021 20:27:48 CAL INTERN us Joann Casillas CODING MANAGER ECG ORDERABLES Final Resul t [facility] documented in this encounter Visit Diagnoses Diagnosis COVID-19 virus infection- Primary Acute viral syndrome documented in this encounter Administered Medications Inactive Administered Medications - up to 3 most recent administrations Medication Order MAR Action Action Date Dose Rate Site acetaminophen (TYLENOL) tablet 1,000 mg 1,000 mg, Oral, Once, 1 dose, On Mon04/19/21 at 2100, Maximum dose of acetaminophen is 4000 mg from all sources in 24 hours. Given 04/19/2021 8:49 PM MEDICAL INTERN 1,000 mg documented in this encounter Active and Recently Administered Medications Times are shown in MEDICAL INTERN. Scheduled Medication Order 04/17/2021 04/18/2021 04/19/2021 acetaminophen (TYLENOL) tablet 1,000 mg (COMPLETED) 1,000 mg, Oral, Once, 1 dose, On Mon04/19/21 at 2100, Maximum dose of acetaminophen is 4000 mg from all sources in 24 hours. 2048 (Given - Provid er: Matt Santana RN) aspirin chewable tablet 324 mg 324 mg, Oral, Once, 1 dose, On Mon04/19/21 at 2014 2014 (Canceled Entry - Provider: Automatic Discharge Provider - Comment: Automatically canceled at discontinue of medication order) documented in this encounter Additional Health Concerns Infection Onset Date Last Indicated Resolved Time COVID-19 Rule Out 04/19/2021 04/19/2021 04/19/2021 10:15 PM MEDICAL INTERN COVID-19 Confirmed 04/19/2021 04/19/2021 12:32 AM MEDICAL INTERN documented as of this encounter Care Teams Dress Cap Maker Relationship Specialty Start Date End Date Justen Gale MD [address] [address] PCP - General FAMILY PRACTICE 08/20/17 Meena Bansal MD Three [facility]. [id number] [place] [address] José Luis Pe Electrical Engineer CARDIOVASCULAR DISEASE 04/24/16 documented as of this encounter
--- OUTSIDE RECORDS SUMMARY | 2024-04-26 02:40 | XMS_ITS | Encounter Summary ---
Author Organization [facility] Address [address] [place] [address]. [place] [address] [place] [address] Care Team Providers Care Scenic Artist Name Role Phone Meena Bansal MD Unavailable [phone] Justen Gale MD Primary Care Provider [phone] Reason for Visit * Reason Comments Chest Pain Encounter Details Date Type Department Care Team (Late st Contact Info) Description 03/03/2021 1:02 AM TIMBER MANAGEMENT PROFESSOR - 03/03/2021 5:33 AM TIMBER MANAGEMENT PROFESSOR Emergency [facility] Emergency Room [address] [place], [place] [id number] Jaswinder Gaytan MD [address] [place] [address] Chest Pain Discharge Disposition: Home or Self Care [...] Sexual Orientation Straight 03/18/2018 3: 01 AM TIMBER MANAGEMENT PROFESSOR COVID-19 Exposure Response Date Recorded In the last month, have you been in contact with someone who was confirmed or suspected to have Coronavirus / COVID-19? No / Unsure 03/03/2021 2:01 AM TIMBER MANAGEMENT PROFESSOR documented as of this encounter Last Filed Vital Signs Vital Sign Reading Time Taken Comments Blood Pressure 123/69 03/03/2021 5:00 AM TIMBER MANAGEMENT PROFESSOR Pulse 75 03/03/2021 5:10 AM TIMBER MANAGEMENT PROFESSOR Temperature 36.7 ??C (98 ??F) 03/03/2021 1:11 AM TIMBER MANAGEMENT PROFESSOR Respiratory Rate 18 03/03/2021 5:10 AM TIMBER MANAGEMENT PROFESSOR Oxygen Saturation 96% 03/03/2021 5:10 AM TIMBER MANAGEMENT PROFESSOR Inhaled Oxygen Concentration - - Weight 131.5 kg (289 lb 14.5 oz) 03/03/2021 1:11 AM TIMBER MANAGEMENT PROFESSOR Height 154.9 cm (5' 1 ) 03/03/2021 1:11 AM TIMBER MANAGEMENT PROFESSOR Body Mass Index 54.78 03/03/2021 1:11 AM TIMBER MANAGEMENT PROFESSOR documented in this encounter Functional Status * [...] Date Author Status No 09/06/2020 12:55 AM CDDella Colindres RN Active documented in this encounter Discharge Instructions * Discharge Instructions* Jaswinder Gaytan MD - 03/03/2021 5:03 AM TIMBER MANAGEMENT PROFESSOR Emergency Departments (ED) provide medical screening exams [...] care by your primary care physician or sales operations consultant. Your medication list was reviewed prior [...] such as many narcotic drug combinations and [id number] cold medicines. Your feedback is important to us. Please fill out the survey you will get in the mail. We need yourinput to give you the best care possible! With your feedback we??ll know where we need to focus ourefforts to provide very good service to our patients! ER MANAGEMENT PROFESSOR * Attachments The following attachments cannot be sent through Care Everywhere. * Chest Pain Discharge Instructions ([place]) * High Blood Pressure Discharge Instructions ([place]) documented in this encounter Medications at Time [...] mouth nightly at bedtime. 10/13/19 24 aspirin 81 MG chewable tablet Chew 1 tablet (81 mg total) by mouth daily. 30 tablet 1 04/19/20 21 bismuth subsalicylate (PEPTO-BISMOL MAX ST) 525 MG/15ML Suspension suspension Take 30 mLs by mouth every 6 (six) hours as needed (Abdominal cramping/diarrhea). 960 mL 1 04/19/20 21 diclofenac EC 75 MG tablet Take 1 tablet (75 mg total) by mouth 2 (two) times daily as needed (Pain. Please take with meals). 30 tablet 1 04/19/20 21 famotidine 20 MG tablet Take 1 tablet [...] as needed for Nausea. 20 tablet 1 04/19/20 21 ondansetron 4 MG disintegrating tablet Take 1 tablet (4 mg total) by mouth every 8 (eight) hours as needed for Nausea. 20 tablet 04/19/20 oxybutynin 5 MG tablet Take 5 mg by mouth 2 (two) times daily. 10/13/19 sucralfate 1 G tablet Take 1 tablet (1 g total) by mouth 4 (four) times daily. 120 tablet 10/13/19 documented as of this encounter ED Notes * Jaswinder Gaytan MD - 03/03/2021 4:11 AM CST Chief Complaint Chief Complaint Patient presents with ??? Chest Pain History of Present Illness The patient is a very pleasant 65-year-old female examined in the emergency department in bed #9. She presents today complaining of chest pain. The pain began on the day prior to presentation. No clear palliative or provoking factors are identified. The pain is not exertional, nor is it reproducible by palpation or arm movement. Quality is described as a retrosternal burning. There is no radiation. Severity is mild to moderate. Time course constant since onset. Medical History ALLERGIES: Allergies Allergen Reactions ??? Ativan [Lorazepam] Hyperactive Aggrevates restless leg syndrome ??? Cephalosporins Anaphylaxis ??? Rocephin [Ceftriaxone] Shortness of Breath ??? Levofloxacin Hives ??? Oxycodone Vomiting ??? Reglan [Metoclopramide] Hyperactive ??? Trazodone Other (see comment) Shaky, restlessness, itching, throat swelling MEDICATIONS: Prior to Admission medications Medication Sig Start Date End Date Taking? Authorizing Provider aspirin 81 MG chewable tablet Chew 1 tablet (81 mg total) by mouth daily. 03/03/21 Yes Jaswinder Gaytan MD famotidine 20 MG tablet Take 1 tablet (20 mg total) by mouth 2 (two) times daily. 03/03/21 Yes Jaswinder Gaytan MD sucralfate 1 G tablet Take 1 tablet (1 g total) by mouth 4 (four) times daily. 03/03/21 Yes Jaswinder Gaytan MD amitriptyline 25 MG tablet Take 25 mg by mouth nightly at bedtime. Doc Abstract bismuth subsalicylate (PEPTO-BISMOL MAX ST) 525 MG/15ML Suspension suspension Take 30 mLs by mouth every 6 (six) hours as needed (Abdominal cramping/diarrhea). 09/21/20 Jaswinder Gaytan MD diclofenac EC 75 MG tablet Take 1 tablet (75 mg total) by mouth 2 (two) times daily as needed (Pain. Please take with meals). 09/21/20 Jaswinder Gaytan MD exemestane 25 MG tablet [...] (four) hours as needed for Nausea. 09/21/20 Jaswinder Gaytan MD ondansetron 4 MG disintegrating tablet Take 1 tablet (4 mg total) by mouth every 8 (eight) hours asneeded for Nausea. 01/06/21 Shorty Alvarado MD oxybutynin 5 MG tablet Take 5 [...] Types: Cigarettes Quit date: 03/23/1977 Years since quittin.9 ??? Smokeless tobacco: Never Used Substance Use Topics ??? Alcohol use: No ??? Drug use: No Review of Systems Review of Systems REVIEW OF SYSTEMS: The patient denies fevers, chills, or sweats. Denies nausea, vomiting, diarrhea,constipation, or abdominal pain. Complains of chest pain, denies shortness of breath, dyspnea on exertion, or palpitations. Denies headache, loss of consciousness, or seizures. Denies dysuria or hematuria. Ten systems reviewed and negative except as described above or in the HPI. Physical Exam Filed Vitals: 03/03/21 0507 03/03/21 0508 03/03/21 0509 03/03/21 0510 BP: Pulse: 89 91 88 75 Resp: 23 21 20 18 Temp: TempSrc: SpO2: 92% 91% 95% 96% Weight: Height: Physical Exam VITALS: Reviewed. GENERAL: The [...] tracheal deviation, or subcutaneous emphysema is noted. CHEST: The thoracic cage is stable to palpation and nontender. LUNGS: Clear to auscultation bilaterally without wheezes, rales or rhonchi. Equal inspiratory and expiratory phases. HEART: Normal rate, regular rhythm. Normal S1 and S2. No S3 noted. ABDOMEN: Exam limited by body habitus (the patient's BMI is greater than 54), within that limitation the patient's abdomen is soft, nontender, and nondistended. No masses, bruits or [...] or performed during the hospital encounter of 03/03/21 ECG 12 lead Narrative [facility] [address] [place] [address] Test Date: 2021-03-03 Pat Name: MOHSEN MARQUES Department: Room: Gender: Female Navigation Teacher: ILYA : 1955 Requested By: JASWINDER GAYTAN Order Number: [id number] Reading MD: Ramon Byrd Measurements Intervals [place] Rate: 100 P: 21 VA: 140 QRS: 14 QRSD: 94 T: 52 QT: 342 QTc: 441 Interpretive Statements SINUS TACHYCARDIA ABNORMAL RHYTHM ECG Compared to ECG 01/06/2021 18:53:02 Sinus rhythm no longer present ER MANAGEMENT PROFESSOR ECG 12 lead Narrative [facility] [address] [place] [address] Test Date: 2021-03-03 Pat Name: MOHSEN MARQUES Department: Room: Gender: Female Navigation Teacher: ALIX : 1955 Requested By: JASWINDER GAYTAN Order Number: [id number] Reading : Ramon Byrd Measurements Intervals [place] Rate: 81 P: 36 VA: 135 QRS: 1 QRSD: 90 T: 31 QT: 382 QTc: 444 Interpretive Statements SINUS RHYTHM Compared to ECG 03/03/2021 00:59:40 Sinus tachycardia no longer present ER MANAGEMENT PROFESSOR LABORATORY STUDIES: Results for orders placed or performed during the hospital encounter of 03/03/21 CBC W/DIFF AUTOMATED Result Value Ref Range WBC 10.1 4.5 - 11.0 x10'3/uL RBC 4.66 4.20 - 5.40 x10'6/uL HGB 13.6 12.0 - 16.0 G/DL HCT 43.5 38.0 - 48.0 % MCV 93.3 81.0 - 99.0 FL MCH 29.2 27.0 - 31.0 PG MCHC 31.3 (L) 32.0 - 36.0 G/DL RDW 13.7 11.5 - 14.5 % PLT 325 130 - 400 x10'3/uL MPV 9.9 9.3 - 12.2 FL DIFFERENTIAL TYPE AUTOMATED DIFFERENTIAL NEUTROPHILS 53.0 % LYMPHOCYTES 33.1 % MONOCYTES 9.8 % EOSINOPHILS 3.4 % BASOPHILS 0.4 % IMMATURE GRANS 0.3 % ABS. NEUTROPHILS TOTAL 5.38 1.80 - 7.70 x10'3/uL ABS. LYMPHOCYTES 3.35 1.00 - 4.80 x10'3/uL ABS. MONOCYTES 0.99 (H) 0.24 - 0.86 x10'3/uL ABS. EOSINOPHILS 0.34 0.04 - 0.36 x10'3/uL ABS. BASOPHILS 0.04 0.01 - 0.08 x10'3/uL ABS. IMMATURE GRANULOCYTES 0.03 0.00 - 0.49 x10'3/uL COMPREHENSIVE METABOLIC PANEL Result Value Ref Range GLUCOSE 139 (H) 70 - 99 MG/DL BUN 25 (H) 7 - 18 MG/DL CREATININE S/P/B 0.82 0.55 - 1.02 MG/DL SODIUM 137 136 - 145 MMOL/L POTASSIUM 4.0 3.5 - 5.1 MMOL/L CHLORIDE S/P/B 105 100 - 108 MMOL/L CO2 28.2 21 - 32 MMOL/L CALCIUM 9.0 8.5 - 10.1 MG/DL BILIRUBIN TOTAL S/P/B 0.4 0.2 - 1.2 MG/DL TOTAL PROTEIN S/P/B 8.7 (H) 6.4 - 8.2 G/DL ALBUMIN S/P/B 3.1 (L) 3.4 - 5.0 G/DL AST 19 15 - 37 U/L ALT 25 14 - 55 U/L ALKALINE PHOSPHATASE S/P/B 73 50 - 136 U/L ANION GAP 3.8 (L) 5 - 15 MMOL/L BUN CREATININE RATIO 30.6 (H) 6 - 26 A/G RATIO 0.6 (L) 1.0 - 2.0 RATIO eGFR Non-Afr. Amer. 76 (L) >90 ML/MIN/1.73 M2 eGFR Afr. Amer. 88 (L) >90 ML/MIN/1.73 M2 TROPONIN, QUANT Result Value Ref Range TROPONIN I HIGH SENSITIVITY 9 <54 ng/L TROPONIN, QUANT Result Value Ref Range TROPONIN I HIGH SENSITIVITY 8 <54 ng/L LIPASE Result Value Ref Range LIPASE 89 73 - 393 UNITS/L IMAGING STUDIES XR CHEST PORTABLE Final Result by User, [id number] (03/03 014) Examination: Chest radiograph Exam time: 03/03/2021 1:31 AM Clinical history: Chest pain Comparison: 01/06/2021 Technique: One view of the chest obtained. Findings: Lungs are adequately inflated and clear. No pneumothorax or pleural effusions evident. The cardiac silhouette is enlarged. Mediastinal contours and pulmonary vessels appear within normal limits. No acute osseous abnormality. IMPRESSION: Prominent cardiac silhouette most likely secondary to mildly prominent epicardial fat pads as seen on CTA chest 01/06/2021. No radiographic evidence of acute disease. Referred By: JASWINDER GAYTAN Interpreted By: Luís Gómez MD, 03/03/2021 1:43 AM ED Course / Medical Decision Making I estimate there is LOW risk for ACUTE CORONARY SYNDROME, PERICARDIAL TAMPONADE, PNEUMOTHORAX, PULMONARY EMBOLISM, or THORACIC DISSECTION, thus I consider the discharge disposition reasonable. Also, there is no evidence for peritonitis, sepsis, or toxicity. The patient has a HEART score that indicates that they are not above baseline risk for a major adverse cardiac event within the next 6 weeks.We have discussed the diagnosis and risks, and we agree with discharging home to follow-up with their primary doctor. We also discussed returning to the Emergency Department immediately if new or worsening symptoms occur. We have discussed the symptoms which are most concerning (e.g., changing or worsening pain, trouble swallowing or breathing, or fever) that necessitate immediate return. [place] Heart Risk Score Documentation Heart Risk Score: Diagnosed and/or treated hypertension, Currently Treated Diabetes Mellitus, Obesity (BMI > or equal to 30) Number of Risk Factors: 3 or more OR hx of CAD, stroke or peripheral arterial disease History: Slightly or Non-Suspicion for angina ECG: Normal Age: 46 to 65 Troponin: Normal limit Total Heart Score Points: 3 (03/03/21410) Chest Pain Network Risk Evaluation: Total Score 0-3: Low Risk (Level 4)-Consider Discharge The patient is prescribed aspirin, famotidine, and sucralfate. She is referred to primary care. Clinical Impression Chest pain (Primary) Hypertension Disposition: Discharge I dictated portions of this note using [employer] speech recognition software. Occasional wrong word or sound-alike substitutions may have occurred due to the inherent limitations of voice recognition software. Please read the chart carefully and recognize, using context, where the substitutions may have occurred. If there are any questions, please contact me via [employer] or other HIPAA compliant communication medium for clarification. Jaswinder Gaytan MD 03/04/21701 ER MANAGEMENT PROFESSOR * Heaven Romero RN - 03/03/2021 12:59 AM CST Pt to the ed reporting rt arm pain radiating to her chest since yesterday. Pt informed her providedand was told to come in for evaluation. Pt denies any SOB but reports some nausea.HEAVEN ROMERO RN ER MANAGEMENT PROFESSOR documented in this encounter Plan of Treatment Not on file documented as of this encounter Procedures Procedure Name Priority Date/Time Associated Diagnosis Comments ECG 12-LEAD STAT 03/03/2021 3:24 AM TIMBER MANAGEMENT PROFESSOR TROPONIN, QUANT STAT 03/03/2021 3:02 AM TIMBER MANAGEMENT PROFESSOR LIPASE STAT 03/03/2021 3:02 AM TIMBER MANAGEMENT PROFESSOR XR CHEST PORTABLE STAT 03/03/2021 1:4 0 AM TIMBER MANAGEMENT PROFESSOR COMPREHENSIVE METABOLIC PANEL STAT 03/03/2021 1:20 AM TIMBER MANAGEMENT PROFESSOR CBC W/DIFF AUTOMATED STAT 03/03/2021 1:20 AM TIMBER MANAGEMENT PROFESSOR TROPONIN, QUANT STAT 03/03/2021 1:20 AM TIMBER MANAGEMENT PROFESSOR ECG 12-LEAD STAT 03/03/2021 12:59 AM TIMBER MANAGEMENT PROFESSOR documented in this encounter Results * ECG 12 lead (03/03/2021 3:24 AM TIMBER MANAGEMENT PROFESSOR) 03/03/2021 3:24 AM TIMBER MANAGEMENT PROFESSOR Narrative [facility] ([facility] - 03/03/2021 9:11 PM TIMBER MANAGEMENT PROFESSOR ?[facility] ? [address] [place] [place] ? Test Date: ?2021-03-03 Pat Name: ? MOHSEN MARQUES ?Department: ? Room: ? Gender: ? Female ? Navigation Teacher: ?? EM : ?1955 ? Requested By: JASWINDER Zimmerman Number: [id number] ? Reading : ?? Ramon Byrd ? Measurements Intervals ?[place] ? Rate: ? 81 ? P: ?36 VA: ? 135 ?QRS: ?1 QRSD: ? 90 ? T: ?31 QT: ? 382 ? QTc: ?444 ? Interpretive Statements SINUS RHYTHM Compared to ECG 03/03/2021 00:59:40 Sinus tachycardia no longer present ER MANAGEMENT PROFESSOR Procedure Note Ramon Byrd MD - 03/03/[address]21 [facility] [address] [place] Test Date: 2021-03-03 Pat Name: MOHSEN MARQUES Department: Room: Gender: Female Navigation Teacher: ALIX : 1955 Requested By: JASWINDER GAYTAN Order Number: [id number] Reading MD: Ramon Byrd Measurements Intervals [place] Rate: 81 P: 36 VA: 135 QRS: 1 QRSD: 90 T: 31 QT: 382 QTc: 444 Interpretive Statements SINUS RHYTHM Compared to ECG 03/03/2021 00:59:40 Sinus tachycardia no longer present ER MANAGEMENT PROFESSOR Jaswinder Gaytan MD ECG ORDERABLES Final Result Performing Organization Address City/[facility]/ZIP Co de Phone Number [facility] * LIPASE (03/03/2021 3:02 AM TIMBER MANAGEMENT PROFESSOR) Pathologist [facility] LIPASE 89 73 - 393 UNITS/L 03/03/2021 4:32 AM TIMBER MANAGEMENT PROFESSOR [facility] 03/03/2021 3:02 AM TIMBER MANAGEMENT PROFESSOR Jaswinder Gaytan MD LABORATORY Final Result Performing Organization Address [facility]/[place] Co de Phone Number [facility] [address] [place] [address], [place] [phone] * TROPONIN, QUANT (03/03/2021 3:02 AM TIMBER MANAGEMENT PROFESSOR) Pathologist [facility] TROPONIN I HIGH SENSITIVITY 8 <54 ng/L 03/03/2021 3:34 AM TIMBER MANAGEMENT PROFESSOR [facility] Comment: HIGH DOSES OF BIOTIN, TROPONIN-SPECIFIC AUTOANTIBODIES, AND ANTIBODY THERAPY CONTAINING HAMA MAY INTERFERE WITH THIS TEST RESULT. CORRELATION TO CLINICAL HISTORY AND PRESENTATION RECOMMENDED. 03/03/2021 3:02 AM TIMBER MANAGEMENT PROFESSOR us Jaswinder Gaytan MD LABORATORY Final Result Performing Organization Address [facility]/[place] Co de Phone Number [facility] [address] [place] [address], [place] [phone] * XR CHEST PORTABLE (03/03/2021 1:40 AM TIMBER MANAGEMENT PROFESSOR) Anatomical Region Laterality Modality Chest Radiographic Lizeth ging 03/03/2021 1:43 AM TIMBER MANAGEMENT PROFESSOR Impressions 03/03/2021 1:45 AM TIMBER MANAGEMENT PROFESSOR IMPRESSION: Prominent cardiac silhouette most likely secondary to mildly prominent epicardial fat pads as seen on CTA chest 01/06/2021. No radiographic evidence of acute disease. Referred By: JASWINDER GAYTAN Interpreted By: Luís Gómez MD, 03/03/2021 1:43 AM Narrative 03/03/2021 1:45 AM TIMBER MANAGEMENT PROFESSOR Examination: Chest radiograph Exam time: 03/03/2021 1:31 AM Clinical history: Chest pain Comparison: 01/06/2021 Technique: ??One view of the chest obtained. Findings: Lungs are adequately inflated and clear. No pneumothorax or pleural effusions evident. The cardiac silhouette is enlarged. Mediastinal contours and pulmonary vessels appear within normal limits. No acute osseous abnormality. ?? Procedure Note Luís Gómez MD - 03/03/2021 Examination: Chest radiograph Exam time: 03/03/2021 1:31 AM Clinical history: Chest pain Comparison: 01/06/2021 Technique: One view of the chest obtained. Findings: Lungs are adequately inflated and clear. No pneumothorax orpleural effusions evident. The cardiac silhouette is enlarged. Mediastinalcontours and pulmonary vessels appear within normal limits. No acuteosseous abnormality. IMPRESSION: Prominent cardiac silhouette most likely secondary to mildly prominentepicardial fat pads as seen on CTA chest 01/06/2021. No radiographicevidence of acute disease. Referred By: JASWINDER GAYTAN Interpreted By: Luís Gómez MD, 03/03/2021 1:43 AM us Jaswinder Gaytan MD GENERAL IMAGING Final Result * TROPONIN, QUANT (03/03/2021 1:20 AM TIMBER MANAGEMENT PROFESSOR) TROPONIN I HIGH SENSITIVITY 9 <54 ng/L 03/03/2021 2:02 AM [facility] Comment: HIGH DOSES OF BIOTIN, TROPONIN-SPECIFIC AUTOANTIBODIES, AND ANTIBODY THERAPY CONTAINING HAMA MAY INTERFERE WITH THIS TEST RESULT. CORRELATION TO CLINICAL HISTORY AND PRESENTATION RECOMMENDED. 03/03/2021 1:20 AM TIMBER MANAGEMENT PROFESSOR Jaswinder Gaytan MD LABORATORY Final Result [facility] [address] [place] [address], [place] [phone] * (ABNORMAL) COMPREHENSIVE METABOLIC PANEL (03/03/2021 1:20 AM TIMBER MANAGEMENT PROFESSOR) GLUCOSE 139(H) 70 - 99 MG/DL 03/03/2021 2:02 AM [facility] BUN 25(H) 7 - 18 MG/DL 03/03/2021 2:02 AM [facility] CREATININE S/P/B 0.82 0.55 - 1.02 MG/DL 03/03/2021 2:02 AM [facility] SODIUM S/P/B 137 136 - 145 MMOL/L 03/03/2021 2:02 AM [facility] POTASSIUM S/P/B 4.0 3.5 - 5.1 MMOL/L 03/03/2021 2:02 AM [facility] CHLORIDE S/P/B 105 100 - 108 MMOL/L 03/03/2021 2:02 AM [facility] CO2 28.2 21 - 32 MMOL/L 03/03/2021 2:02 AM [facility] CALCIUM S/P/B 9.0 8.5 - 10.1 MG/DL 03/03/2021 2:02 AM [facility] BILIRUBIN TOTAL S/P/B 0.4 0.2 - 1.2 MG/DL 03/03/2021 2:02 AM [facility] Comment: THIS ASSAY IS NOT RECOMMENDED FOR PATIENTS UNDERGOING TREATMENT WITH ELTROMBOPAG DUE TO THE POTENTIAL FOR FALSELY ELEVATED RESULTS. TOTAL PROTEIN S/P/B 8.7(H) 6.4 - 8.2 G/DL 03/03/2021 2:02 AM [facility] ALBUMIN S/P/B 3.1(L) 3.4 - 5.0 G/DL 03/03/2021 2:02 AM [facility] AST 19 15 - 37 U/L 03/03/2021 2:02 AM [facility] ALT 25 14 - 55 U/L 03/03/2021 2:02 AM [facility] ALKALINE PHOSPHATASE S/P/B 73 50 - 136 U/L 03/03/2021 2:02 AM [facility] ANION GAP 3.8(L) 5 - 15 MMOL/L 03/03/2021 2:02 AM [facility] BUN CREATININE RATIO 30.6(H) 6 - 26 03/03/2021 2:02 AM [facility] A/G RATIO 0.6(L) 1.0 - 2.0 RATIO 03/03/2021 2:02 AM [facility] EGFR NON-AFR. AMER. 76(L) >90 ML/MIN/1.7 3 M2 03/03/2021 2:02 AM [facility] EGFR AFR. AMER. 88(L) >90 ML/MIN/1.7 3 M2 03/03/2021 2:02 AM [facility] Comment: NOTE: eGFR is not calculated for patients <18 years of age. This is an estimated GFR (CKD EPI) and should not be used for calculating drug doses. 03/03/2021 1:20 AM TIMBER MANAGEMENT PROFESSOR Jaswinder Gaytan MD LABORATORY Final Result [facility] [address] [place] [address], [place] [phone] * (ABNORMAL) CBC W/DIFF AUTOMATED (03/03/2021 1:20 AM TIMBER MANAGEMENT PROFESSOR) Pathologist [facility] WBC 10.1 4.5 - 11.0 x10'3/uL 03/03/2021 1:40 AM TIMBER MANAGEMENT PROFESSOR [facility] RBC 4.66 4.20 - 5.40 x10'6/uL 03/03/2021 1:40 AM TIMBER MANAGEMENT PROFESSOR [facility] HGB 13.6 12.0 - 16.0 G/DL 03/03/2021 1:40 AM TIMBER MANAGEMENT PROFESSOR [facility] HCT 43.5 38.0 - 48.0 % 03/03/2021 1:40 AM TIMBER MANAGEMENT PROFESSOR [facility] MCV 93.3 81.0 - 99.0 FL 03/03/2021 1:40 AM TIMBER MANAGEMENT PROFESSOR [facility] MCH 29.2 27.0 - 31.0 PG 03/03/2021 1:40 AM [facility] MCHC 31.3(L) 32.0 - 36.0 G/DL 03/03/2021 1:40 AM TIMBER MANAGEMENT PROFESSOR [facility] RDW 13.7 11.5 - 14.5 % 03/03/2021 1:40 AM TIMBER MANAGEMENT PROFESSOR [facility] PLT 325 130 - 400 x10'3/uL 03/03/2021 1:40 AM TIMBER MANAGEMENT PROFESSOR [facility] MPV 9.9 9.3 - 12.2 FL 03/03/2021 1:40 AM [facility] DIFFERENTIAL TYPE AUTOMATED DIFFERENTIAL 03/03/2021 1:40 AM TIMBER MANAGEMENT PROFESSOR [facility] NEUTROPHILS % 53.0 % 03/03/2021 1:40 AM TIMBER MANAGEMENT PROFESSOR [facility] LYMPHOCYTES % 33.1 % 03/03/2021 1:40 AM TIMBER MANAGEMENT PROFESSOR [facility] MONOCYTES % 9.8 % 03/03/2021 1:40 AM TIMBER MANAGEMENT PROFESSOR [facility] EOSINOPHILS 3.4 % 03/03/2021 1:40 AM TIMBER MANAGEMENT PROFESSOR [facility] BASOPHILS 0.4 % 03/03/2021 1:40 AM TIMBER MANAGEMENT PROFESSOR [facility] IMMATURE GRANS % 0.3 % 03/03/20 1:40 AM TIMBER MANAGEMENT PROFESSOR [facility] ABS. NEUTROPHILS TOTAL 5.38 1.80 - 7.70 x10'3/uL 03/03/2021 1:40 AM TIMBER MANAGEMENT PROFESSOR [facility] ABS. LYMPHOCYTES 3.35 1.00 - 4.80 x10'3/uL 03/03/2021 1:40 AM TIMBER MANAGEMENT PROFESSOR [facility] ABS. MONOCYTES 0.99(H) 0.24 - 0.86 x10'3/uL 03/03/2021 1:40 AM TIMBER MANAGEMENT PROFESSOR [facility] ABS. EOSINOPHILS 0.34 0.04 - 0.36 x10'3/uL 03/03/2021 1:40 AM TIMBER MANAGEMENT PROFESSOR [facility] ABS. BASOPHILS 0.04 0.01 - 0.08 x10'3/uL 03/03/2021 1:40 AM TIMBER MANAGEMENT PROFESSOR [facility] ABS. IMMATURE GRANULOCYTES 0.03 0.00 - 0.49 x10'3/uL 03/03/2021 1:40 AM [facility] 03/03/2021 1:20 AM TIMBER MANAGEMENT PROFESSOR Jaswinder Gaytan MD LABORATORY Final Result [facility] [address] [place] [address], * ECG 12 lead (03/03/2021 12:59 AM TIMBER MANAGEMENT PROFESSOR) 03/03/2021 12:5 9 AM TIMBER MANAGEMENT PROFESSOR Narrative [facility] - 03/03/2021 9:10 PM TIMBER MANAGEMENT PROFESSOR ?[facility] ? [address] [place] ? Test Date: ?2021-03-03 Pat Name: ? MOHSEN MARQUES ?Department: ? Room: ? Gender: ? Female ? Navigation Teacher: ?? CB : ?1955 ? Requested By: JASWINDER Zimmerman Number: [id number] ? Reading MD: ?? Ramon Byrd ? Measurements Intervals ?[place] ? Rate: ? 100 ?P: ?21 VA: ? 140 ?QRS: ?14 QRSD: ? 94 ? T: ?52 QT: ? 342 ? QTc: ?441 ? Interpretive Statements SINUS TACHYCARDIA ABNORMAL RHYTHM ECG Compared to ECG 01/06/2021 18:53:02 Sinus rhythm no longer present ER MANAGEMENT PROFESSOR Procedure Note Ramon Byrd MD - 03/03/2021 [id number] Test Date: 2021-03-03 Pat Name: MOHSEN MARQUES Department: Room: Gender: Female Navigation Teacher: : 1955 Requested By: JASWINDER GAYTAN Order Number: [id number] Reading : Ramon Byrd Measurements Intervals [place] Rate: 100 P: 21 VA: 140 QRS: 14 QRSD: 94 T: 52 QT: 342 QTc: 441 Interpretive Statements SINUS TACHYCARDIA ABNORMAL RHYTHM ECG Compared to ECG 01/06/2021 18:53:02 Sinus rhythm no longer present ER MANAGEMENT PROFESSOR us Jaswinder Gaytan MD ECG ORDERABLES Final Result [facility] ([facility] documented in this encounter Visit Diagnoses Diagnosis Chest pain- Primary Chest pain, unspecified Hypertension Unspecified essential hypertension documented in this encounter Administered Medications Inactive Administered Medications - up to 3 most recent administrations Medication Order MAR Action Action Date Dose Rate Site aspirin chewable tablet 324 mg 324 mg, Oral, Once, 1 dose, On Mon03/03/21 at 0100, If not given by EMS or taken immediately prior to arrival Given 03/03/2021 1:19 AM TIMBER MANAGEMENT PROFESSOR 324 mg famotidine (PEPCID) tablet 20 mg 20 mg, Oral, Once, 1 dose, On Mon03/03/21 at 0415 Given 03/03/2021 4:24 AM TIMBER MANAGEMENT PROFESSOR 20 mg fentaNYL (SUBLIMAZE) injection 50 mcg 50 mcg, Intravenous, Once, 1 dose, On Mon03/03/21 at 0330, If intravenous (IV) route has been ordered, give over 1-2 minutes. Given 03/03/2021 3:32 AM TIMBER MANAGEMENT PROFESSOR 50 mcg sucralfate (CARAFATE) 1 GM/10ML suspension 1 g 1 g, Oral, Once, 1 dose, On Mon03/03/21 at 0415, Shake Well. Administer on empty stomach. Do not administer antacids within 30 minutes of sucralfate; separate administration of other medications and sucralfate by at least two hours. Given 03/03/2021 4:24 AM TIMBER MANAGEMENT PROFESSOR 1 g documented in this encounter Active and Recently Administered Medications Times are shown in TIMBER MANAGEMENT PROFESSOR. Scheduled Medication Order 03/01/2021 03/02/2021 03/03/2021 aspirin chewable tablet 324 mg (COMPLETED) 324 mg, Oral, Once, 1 dose, On Mon03/03/21 at 0100, If not given by EMS or taken immediately prior to arrival 0119 (Given - Provid er: Heaven Romero RN) famotidine (PEPCID) tablet 20 mg (COMPLETED) 20 mg, Oral, Once, 1 dose, On Mon03/03/21 at 0415 0424 (Given - Provid er: Agustín Givens RN) fentaNYL (SUBLIMAZE) injection 50 mcg (COMPLETED) 50 mcg, Intravenous, Once, 1 dose, On 11/10/21 at 0330, If intravenous (IV) route has been ordered, give over 1-2 minutes. 0332 (Given - Provid er: Agustín Givens, NURIS) sucralfate (CARAFATE) 1 GM/10ML suspension 1 g (COMPLETED) 1 g, Oral, Once, 1 dose, On Mon03/03/21 at 0415, Shake Well. Administer on empty stomach. Do not administer antacids within 30 minutes of sucralfate; separate administration of other medications and sucralfate by at least two hours. 0424 (Given - Provid er: Agustín Givens, NURIS) documented in this encounter Care Teams Scenic Artist Relationship Specialty Start Date End Date Justen Gale MD [facility]. [address] [phone] PCP - General FAMILY PRACTICE 08/20/17 Meena Bansal MD [facility]. [address] [address] [address] [place] Fountain Supervisor CARDIOVASCULAR DISEASE 04/24/16 documented as of this encounter
--- OUTSIDE RECORDS SUMMARY | 2024-04-26 02:40 | XMS_ITS | Encounter Summary ---
Author Organization [facility] Address [address] [place] [address]. [place] [address] [place] [address] Care Team Providers Care Independent Freight Agent Name Role Phone Meena Bansal MD Unavailable [phone] Justen Gale MD Primary Care Provider [phone] Reason for Referral * Imaging (Emergency) - Closed Specialty Diagnoses / Procedures Referred By Contac t Referred To Contact RADIOLOGY Procedures CT SOFT TISSUE NECK W CON Emelyn Mari MD [address] [place] [address] Phone: tel: fax: Referral ID Status Reason Start Date Expiration Date Visits Re quested Visits Authorized [id number] Closed 10/26/2021 11/26/2022 1 1 * Imaging (Emergency) - Closed Specialty Diagnoses / Procedures Referred By Contac t Referred To Contact RADIOLOGY Procedures CT ABD+PEL WO CON Emelyn Mari MD [address] [place] [address] Phone: tel: fax: Referral ID Status Reason Start Date Expiration Date Visits Re quested Visits Authorized [id number] Closed 10/26/2021 11/26/2022 1 1 Reason for Visit * Reason Comments Urinary Symptoms Sore Throat Encounter Details Date Type Department Care Team (Late st Contact Info) Description 10/26/2021 6:33 PM CDT - 10/27/2021 2:06 AM CDT Emergency [facility] [place] [address] Emelyn Mari MD [address] [place] [address] [phone] Urinary Symptoms; Sore Throat Discharge Disposition: Home or Self Care (Routine [...] Orientation Straight 03/18/2018 3: 01 AM [employer] COVID-19 Exposure Response Date Recorded In the last 10 days, have yo u been in contact with someone who was confirmed or suspected to have Coronavirus/COVID-19? No / Unsure 10/26/2021 7:00 PM CDT documented as of this encounter Last Filed Vital Signs Vital Sign Reading Time Taken Comments Blood Pressure 137/77 10/27/2021 1:30 AM CDT Pulse 72 10/26/2021 11:20 PM CDT Temperature 36.7 ??C (98 ??F) 10/26/2021 6:17 PM CDT Respiratory Rate 18 10/26/2021 11:2 0 PM CDT Oxygen Saturation 95% 10/27/2021 1:30 AM CDT Inhaled Oxygen Concentration - - Weight 132.5 kg (292 lb 1.8 oz) 10/26/2021 6:17 PM CDT Height 154.9 cm (5' 1 ) 10/26/2021 6:17 PM CDT Body Mass Index 55.19 10/26/2021 6:17 PM CDT documented in this encounter Functional [...] Assessment Author Status Yes 09/06/2020 12:55 AM BRENDANT Della Tejada RN Active documented as of this encounter Mental Status * Because of a physical, mental, or emotional condition, do you have serious difficulty concentrating, remembering, or making decisions? Answer Entry Date Author Status No 09/06/2020 12:55 AM CDT Della Tejada RN Active documented in this encounter Discharge Instructions * Discharge Instructions* Emelyn Mari MD - 10/27/2021 1:19 AM CDT Today you were evaluated for sore throat and UTI symptoms. Your urine looks improved from yesterday. You have already received antibiotics for it. Please follow up with your primary care provider. You may need to see gastroenterology for your swallowing. * Attachments The following attachments cannot be sent through Care Everywhere. * Dysphagia (Spanish) * High Blood Sugar, Adult (Spanish) documented in this encounter Medications at Time [...] (Pain. Please take with meals). 30 tablet 10/13/19 24 famotidine 20 MG tablet Take [...] as of this encounter ED Notes * Elizabet Garcia RN - 10/27/2021 2:05 AM CDT Provider discussed today's findings with the patient/family. The patient has been given informationregarding their treatment, follow up and concerning symptoms for which they should seek urgent or emergent attention. All questions answered. Pt wheeled out of ED in wheelchair with all personal belongings. IV d/c, vitals stable. * Emelyn Mari MD - 10/26/2021 10:04 PM CDT Chief Complaint Chief Complaint Patient presents with ??? Urinary Symptoms ??? Sore Throat History of Present Illness This is a 66 year old female with history of DM, chronic pain, hypertension, obesity who presents for evaluation of multiple complaints. Patient states he had back surgery over 1 month ago in [place]. She states after her surgery she developed a UTI. She has been on antibiotics intermi ttently for 1 month. She states she has multiple antibiotic allergies so her UTI has been difficultto treat. She has been evaluated at [facility] twice over the past month. She states she was diagnosed with strep and UTI initially. She has been taking antibiotics. She was seen at [facility]. She called her PCP today and a nurse told her to go to different ER for second opinion. She complains of sore throat for 1 month. She states it feels like her throat is swelling. She reports intermittent difficulty swallowing. She reports intermittent nausea and vomiting. She has not seen ENT or anyone outside of ER visits. She also reports continued urinary urgency , frequent, lower abdominal pressure and back pain. She was seen by her surgeons 2 weeks ago. She reports having feverat onset 1 month ago but she has not had any since. History provided by: Patient and medical records commission specialist used: No Urinary Symptoms This is a chronic problem. The current episode started more than 1 month ago. The problem occurs intermittently. Associated symptoms include flank pain, frequency, nausea and vomiting. Sore Throat Associated symptoms: fever, shortness of breath and trouble swallowing Associated symptoms: no abdominal pain and no chest pain Medical History ALLERGIES: Allergies Allergen Reactions ??? [...] EMERGENCY PERSIST, ALTERNATE NOSTRILS 05/13/21 Doc Abstract ondansetron 4 MG disintegrating tablet Take 1 tablet (4 mg total) by mouth every 8 (eight) hours asneeded for Nausea. 07/19/21 Serenity Martinez APRN oxybutynin 5 MG tablet Take 5 mg [...] Types: Cigarettes Quit date: 03/23/1977 Years since quittin.6 ??? Smokeless tobacco: Never Used Substance Use Topics ??? Alcohol use: No ??? Drug use: No Review of Systems Review of Systems Constitutional: Positive for fatigue and fever. HENT: Positive for sore throat and trouble swallowing. Respiratory: Positive for shortness of breath. Cardiovascular: Negative for chest pain. Gastrointestinal: Positive for nausea and vomiting. Negative for abdominal pain. Genitourinary: Positive for dysuria, flank pain and frequency. Musculoskeletal: Positive for back pain. All other systems reviewed and are negative. Physical Exam Filed Vitals: 10/26/21 1817 10/26/21 2130 10/26/21 2320 BP: (!) 185/101 (!) 176/104 (!) 151/89 Pulse: 100 72 Resp: Temp: 98 ??F (36.7 ??C) TempSrc: Temporal SpO2: 96% 100% 97% Weight: 132.5 kg (292 lb 1.8 oz) Height: 5' 1 (1.549 m) Physical Exam Vitals and nursing note reviewed. Constitutional: Appearance: Normal appearance. She is obese. HENT: Head: Normocephalic and atraumatic. Jaw: There is normal jaw occlusion. No trismus. Right Ear: External ear normal. Left Ear: External ear normal. Mouth/Throat: Lips: [place]. Mouth: Mucous membranes are moist. Tongue: No lesions. Tongue does not deviate from midline. Palate: No mass and lesions. Pharynx: Oropharynx is clear. Uvula midline. No pharyngeal swelling, oropharyngeal exudate or uvulaswelling. Tonsils: No tonsillar exudate or tonsillar abscesses. Comments: No thrush. No lesions Eyes: Extraocular Movements: Extraocular movements intact. Pupils: Pupils are equal, round, and reactive to light. Cardiovascular: Rate and Rhythm: Normal rate and regular rhythm. Pulses: Normal pulses. Heart sounds: No murmur heard. Pulmonary: Effort: Pulmonary effort is normal. No respiratory distress. Breath sounds: Normal breath sounds. No wheezing. Abdominal: General: Bowel sounds are normal. There is no distension. Palpations: Abdomen is soft. Tenderness: There is no abdominal tenderness. There is no right CVA tenderness or left CVA tenderness. Musculoskeletal: General: No swelling, tenderness or deformity. Cervical back: Normal range of motion and neck supple. No rigidity. Skin: General: Skin is warm and dry. Capillary Refill: Capillary refill takes less than 2 seconds. Comments: Right buttock incision, no erythema, no drainage, incision is intact Midline incision c/d/i Neurological: General: No focal deficit present. Mental Status: She is alert and oriented to person, place, and time. Cranial Nerves: No cranial nerve deficit. Sensory: No sensory deficit. Psychiatric: Mood and Affect: Mood normal. Behavior: Behavior normal. Thought Content: Thought content normal. Diagnostic Studies / Procedures ELECTROCARDIOGRAMS: Results for orders placed or performed during the hospital encounter of 10/26/21 ECG 12 lead Narrative [address] Test Date: 2021-10-26 Pat Name: MOHSEN MARQUES Department: 41 Room: INOR Gender: Female Protozoologist: : [id number] Requested By: SERENITY MARTINEZ Order Number: [id number] Reading MD: Noe Cowan Measurements Intervals [place] Rate: 86 P: 43 OR: 128 QRS: 13 QRSD: 91 T: 64 QT: 341 QTc: 409 Interpretive Statements SINUS RHYTHM NONSPECIFIC T-WAVE ABNORMALITY Compared to ECG 07/19/2021 13:55:41 T-wave abnormality now present Other ischemic changes, not STEMI Jimmie Ceron PA-C CRITICAL ALERT ISSUED ON 10-26-2021 19:13:15 LABORATORY STUDIES: Results for orders placed or performed during the hospital encounter of 10/26/21 CBC W/DIFF AUTOMATED Result Value Ref Range WBC 16.2 (H) 4.5 - 11.0 x10'3/uL RBC 4.58 4.20 - 5.40 x10'6/uL HGB 13.4 12.0 - 16.0 G/DL HCT 42.8 38.0 - 48.0 % MCV 93.4 81.0 - 99.0 FL MCH 29.3 27.0 - 31.0 PG MCHC 31.3 (L) 32.0 - 36.0 G/DL RDW 14.0 11.5 - 14.5 % PLT 345 130 - 400 x10'3/uL MPV 9.9 9.3 - 12.2 FL DIFFERENTIAL TYPE AUTOMATED DIFFERENTIAL NEUTROPHILS 75.5 % LYMPHOCYTES 15.7 % MONOCYTES 7.9 % EOSINOPHILS 0.1 % BASOPHILS 0.2 % IMMATURE GRANS 0.6 % ABS. NEUTROPHILS TOTAL 12.20 (H) 1.80 - 7.70 x10'3/uL ABS. LYMPHOCYTES 2.54 1.00 - 4.80 x10'3/uL ABS. MONOCYTES 1.28 (H) 0.24 - 0.86 x10'3/uL ABS. EOSINOPHILS 0.01 (L) 0.04 - 0.36 x10'3/uL ABS. BASOPHILS 0.03 0.01 - 0.08 x10'3/uL ABS. IMMATURE GRANULOCYTES 0.10 0.00 - 0.49 x10'3/uL COMPREHENSIVE METABOLIC PANEL Result Value Ref Range GLUCOSE 364 (H) 70 - 99 MG/DL BUN 22 (H) 7 - 18 MG/DL CREATININE S/P/B 1.11 (H) 0.55 - 1.02 MG/DL SODIUM 136 136 - 145 MMOL/L POTASSIUM 4.2 3.5 - 5.1 MMOL/L CHLORIDE S/P/B 104 100 - 108 MMOL/L CO2 22.1 21 - 32 MMOL/L CALCIUM 9.3 8.5 - 10.1 MG/DL BILIRUBIN TOTAL S/P/B 0.5 0.2 - 1.2 MG/DL TOTAL PROTEIN S/P/B 8.9 (H) 6.4 - 8.2 G/DL ALBUMIN S/P/B 3.3 (L) 3.4 - 5.0 G/DL AST 12 (L) 15 - 37 U/L ALT 26 14 - 55 U/L ALKALINE PHOSPHATASE S/P/B 83 50 - 136 U/L ANION GAP 9.9 5 - 15 MMOL/L BUN CREATININE RATIO 19.8 6 - 26 A/G RATIO 0.6 (L) 1.0 - 2.0 RATIO GFR ESTIMATE 55 (L) >90 ML/MIN/1.73 M2 URINALYSIS WI REFLEX TO CULTURE Specimen: URINE, CLEAN CATCH Result Value Ref Range Specimen Type URINE CLEAN CATCH COLOR (U) LIGHT YELLOW TRANSPARENCY CLEAR Specific [place] (U) 1.028 1.001 - 1.030 U PH 5.0 5.0 - 9.0 LEUKOCYTE ESTERASE 25 (A) NEGATIVE NITRITES NEGATIVE NEGATIVE PROTEIN (U) NEGATIVE <30 MG/DL URINE GLUCOSE >1000 (A) NORMAL MG/DL U KETONES NEGATIVE NEGATIVE MG/DL UROBILINOGEN NORMAL NORMAL MG/DL BILIRUBIN (U) NEGATIVE NEGATIVE MG/DL BLOOD 1+ (A) NEGATIVE CULTURE & SENSITIVITY INDICATED? SPECIMEN SETUP FOR CULTURE MUCUS RARE /LPF WBC/HPF 22 (H) <6 /HPF RBC/HPF 3 <6 /HPF TROPONIN, QUANT Result Value Ref Range TROPONIN I HIGH SENSITIVITY 11 <54 ng/L LACTIC ACID Result Value Ref Range LACTIC ACID 1.7 0.4 - 2.0 MMOL/L POCT glucose Result Value Ref Range GLUCOSE POC 299 (H) 70 - 99 mg/dL IMAGING STUDIES CT ABD+PEL WO CON Final Result by User, [id number] (10/27 18) EXAMINATION: CT Abdomen and Pelvis without intravenous contrast, axial images with 2D coronal and sagittal reconstruction. INDICATION: Nausea/vomiting. History of severe urinary tract infection with multiple allergies to antibiotics, back infection. COMPARISON: CT abdomen and pelvis with contrast 09/21/2020. CTA chest 03/14/2019. FINDINGS: Multiple small subpleural noncalcified pulmonary nodules in the posterior medial left lower lobe are stable since 03/14/2019, favoring a benign etiology, likely postinfectious/postinflammatory, with the largest nodule measuring approximately 5.6 mm on axial series 3 image 46. No new or enlarging nodules are seen. A partially included nodule in the posterior medial inferior left lingula on axial image 1 is also stable since 03/14/2019. Minimal atelectasis posteriorly in the right lower lobe and inferior lingula. No pleural or pericardial effusions. Heart size is normal. Mitral annular calcifications. Postcholecystectomy clips with no significant biliary dilatation. Liver, spleen, pancreas and bilateral adrenals are normal. Stable 1.7 cm cyst laterally in the upper to mid lower right kidney. Kidneys are otherwise unremarkable. Bladder is normal. Uterus appears grossly unremarkable. No suspicious adnexal mass and no free fluid in the cul-de-sac. Calcified phleboliths bilaterally in the pelvis. Radiodensities from one or more hernia mesh in the anterior abdominal wall in the midline near the umbilicus and extending on either side of midline further inferiorly, most numerous in the lower anterior pelvic wall anterior to the bladder. Slight gas in the distal esophagus may be physiologic or may represent mild gastroesophageal reflux disease. Mild retained food in the stomach. Mild colonic diverticulosis without diverticulitis. Tikj-ek-ygnundxm stool in the colon. Appendix is normal. No ascites or adenopathy. Aorta is age-appropriate without aneurysm. Postoperative changes of posterior decompressive laminectomy and the included lower thoracic spine at approximately T7-8 or upper T8 level. Presumed bilateral spinal stimulator leads entering the thoracic spinal canal at approximately T8-9 level Transitional lumbosacral junction with partial sacralization of L5 with hypoplastic L5-S1 disc, presuming that the last pair of ribs is at T12 level. Mild degenerative changes in the included lower thoracic and lumbar spine. Multilevel facet arthropathy. Advanced degenerative changes bilateral sacroiliac joints. Pubic osteitis. No significant arthritic changes in the hips. No acute osseous abnormality. IMPRESSION: 1. Postoperative changes in the thoracic spine at approximately T8-9 level with spinal stimulator leads entering the spinal canal at approximately T7-8 level with slight rostral extension. 2. Transitional lumbosacral junction with presumed partial sacralization of L5 and hypoplastic L5/S1 disc. 3. Advanced sacroiliitis. Gbom-zz-wftrmmyy pubic osteitis. Mild spondylosis in the lumbar and in the included lower thoracic spine. 4. Moderate stool in the colon. Colonic diverticulosis without diverticulitis. 5. Postoperative changes of hernia repair in the anterior periumbilical region and anterior pelvic wall. 6. Several small noncalcified pulmonary nodules in the inferior lingula and left lower lobe are stable since 03/14/2019, likely postinfectious/postinflammatory. No further routine follow-up imaging is recommended. This CT exam was performed using one or more of the following dose reduction techniques: automated exposure control, adjustment of the mA and/or kV according to patient size, and/or use of iterative reconstruction technique. Referred By: Interpreted By: Kacey Gamble MD, 10/26/2021 10:[address] SOFT TISSUE NECK W CON Final Result by User, [id number] (10/27 0002) EXAMINATION: CT Soft Tissue Neck with intravenous contrast,, Axial Imaging with 2-D Coronal and Sagittal Reconstructions. 100 mL Isovue-370 was administered intravenously. INDICATION: Swelling, concern for abscess/infection. Difficulty swallowing food with increased swelling in the throat, facial swelling, tested positive for strep, soreness in the mouth. COMPARISON: None. FINDINGS: No mass lesions or areas of abnormal enhancement are identified. Mildly prominent lymph nodes in bilateral submandibular chain, especially posterior to bilateral upper submandibular glands are likely benign reactive in nature. A few other small benign-appearing lymph nodes scattered bilaterally in the posterior cervical triangle. Borderline prominence of bilateral palatine tonsils with no discrete mass, abscess, fluid collection, or phlegmonous reaction. Remaining soft tissues of the pharynx and larynx are unremarkable. The airway is patent and symmetric. The parotid and submandibular glands are unremarkable. Heterogeneous thyroid with partially calcified nodules in both lobes of the thyroid, the largest in the right lobe measuring approximately 1.8 x 2.2 cm. No acute osseous abnormality. Mild subpleural atelectasis and/or subpleural interstitial scarring is noted laterally in the partially included left upper lobe. Minimal dependent atelectasis posteriorly in the partially included lungs. Mild chronic spondylosis in the cervical and included upper thoracic spine. Unfused accessory ossicle versus calcification of ligamentum nuchae versus old ununited avulsion fracture at the posterior tip of T1 spinous process, with no acute osseous abnormality. IMPRESSION: 1. Likely benign reactive prominence of lymph nodes in bilateral submandibular chain, most prominent posterior superior bilateral submandibular glands. 2. Heterogeneous thyroid with partially calcified nodules in both lobes of thyroid with the largest on the right measuring 1.8 x 2.2 cm. Recommend nonemergent thyroid ultrasound exam for further evaluation. 3. Borderline prominence of the collecting tonsils with no evidence of an abscess or phlegmonous reaction. 4. Please see above report for the other findings. This CT exam was performed using one or more of the following dose reduction techniques: automated exposure control, adjustment of the mA and/or kV according to patient size, and/or use of iterative reconstruction technique. Referred By: Interpreted By: Kacey Gamble MD, 10/26/2021 10:40 PM XR CHEST PORTABLE Final Result by User, [id number] (10/26 1926) Date: 10/26/2021 7:21 PM Exam: XR CHEST PORTABLE Comparison: Chest radiography dated 07/19/2021, 05/22/2021. Technique: Single view chest. History: Sore throat. Back surgery last month. Shortness of breath. Worsening symptoms. Findings: The cardiac silhouette and pulmonary vascularity are within normal limits. There are no consolidations nor pleural effusions. There is no pneumothorax. There is bronchial wall thickening. There is calcified disease in the thoracic aorta. There is stable spondylosis in the thoracic spine. Impression: Bronchial wall thickening could indicate bronchitis, reactive airway disease and/or smoking. Ordered By: SERENITY MARTINEZ Interpreted By: Jeremías Watson Jr, MD, 10/26/2021 7:24 PM ED Course / Medical Decision Making MDM Number of Diagnoses or Management Options Amount and/or Complexity of Data Reviewed Decide to obtain previous medical records or to obtain history from someone other than the patient:yes ED Course as of 10/27/21 0122 MonOct 27, 2021 0102 Patient states it hurts to swallow.I reviewed patient's chart and urine culture 12 days ago grew E. Coli . Resistant to bactrim but otherwise sensitive to other antibiotics. She has been given fosfomycin for her UTI. She has also been on macrobid but she reports rash. She was on bactrim. Patient has leukocytosis that may be from steroid use. She has hyperglyemia which may be cause of frequent urination. [KH] 0112 LEUKOCYTE ESTERASE(!): 25 [KH] 0116 Patient is not toxic appearing. She was able to drink water. She got fosfomycin yesterday so no additional antibiotics [KH] ED Course User Index [KH] Emelyn Mari MD Clinical Impression Odynophagia (Primary) Hyperglycemia due to diabetes mellitus ([facility]) 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) Disposition: Discharge Emelyn Mari MD 10/27/21121 * Heaven Romero RN - 10/26/2021 9:31 PM CDT Pt reporting sore throat with swelling to the throat and tongue and sores on her tongue and soft palate. Pt also reporting a rash across her chest. Pt stating that she has taken 3 home COVID test resulting in a negative..HEAVEN ROMERO RN * Olivier Mccain RN - 10/26/2021 6:19 PM CDT PT arrived to triage with a claims account specialist a sore throat after having back surgery last month that has gotten worse since. PT states that she is SOB and not being able to eat. She also believes that she has a UTI. * Serenity Martinez APRN - 10/26/2021 6:17 PM CDT [place], [place] EMERGENCY DEPARTMENT ENCOUNTER Medical Screening Examination 10/26/21 6:21 PM Chief Complaint : Urinary Symptoms and Sore Throat HPI : Mohsen Marques is a 66-year-old female who presents to the ED today for evaluation of manydifferent symptoms. Patient states that she has been dealing with a severe urinary infection that they cannot clear due to her many allergies to antibiotics. Patient states that she has been seen at [facility]. She recently had a surgery on her back due to a infection where she was put under anesthesi a. She states that she is been difficulty swallowing food and feels like her throat is getting moreswollen. She states she just feels awful. States she broke out with redness to her chest, feels short of breath especially when laying down (she does have sleep apnea). Feels like her face is swollen. States they did test her for strep and told her she had strep. She also has complaints of sores inher mouth. Vital Signs: Filed Vitals: 10/26/211816 BP: (!) 185/101 Pulse: 100 Resp: 20 Temp: 98 ??F (36.7 ??C) TempSrc: Temporal SpO2: 96% Weight: 132.5 kg (292 lb 1.8 oz) Height: 5' 1 (1.549 m) Physical exam: A brief physical exam was completed to facilitate/expedite patient care. Mitchell findings include: alert, stable, obese Plan: Labs & Imaging was ordered to facilitate patient care. Serenity Martinez APRN 10/26/2021 Serenity Martinez APRN 10/26/211820 Cosigned by Emelyn Mari MD at 10/26/2021 8:20 PM CDT documented in this encounter Plan of Treatment Not on file documented as of this encounter Procedures Procedure Name Priority Date/Time Associated Diagnosis Comments POCT GLUCOSE - SAVAGE DOCKED DEVICE Routine 10/26/2021 10:[address] SOFT TISSUE NECK W CON STAT 10/26/2021 10:[address] ABD+PEL WO CON STAT 10/26/2021 10: 18 PM CDT XR CHEST PORTABLE STAT 10/26/2021 7:2 1 PM CDT ECG 12-LEAD Routine 10/26/2021 7:11 PM CDT CULTURE THROAT ALL ORG STAT 6:54 PM CDT URINALYSIS WI REFLEX TO CULTURE STAT 10/26/2021 6:52 PM CDT URINE BACTERIA CULTURE Routine 6:52 PM CDT COMPREHENSIVE METABOLIC PANEL STAT 10/26/2021 6:52 PM CDT LACTIC ACID TIMED 10/26/2021 6:52 PM CDT CULTURE, BACTERIA, BLOOD STAT 10/26/2021 6:52 PM CDT CULTURE, BACTERIA, BLOOD STAT 10/26/2021 6:52 PM CDT CBC W/DIFF AUTOMATED STAT 10/26/2021 6:52 PM CDT TROPONIN, QUANT STAT 10/26/2021 6:52 PM CDT documented in this encounter Results * (ABNORMAL) POCT glucose (10/26/2021 10:57 PM CDT) GLUCOSE POC 299(H) 70 - 99 mg/dL 10/26/2021 10:59 PM CDT [facility] 10/26/2021 10:5 7 PM CDT us Emelyn Mari MD POCT ORDERABLES - DEVICE Deann l Result [facility] [address] [place] [address], [place] [phone] * CT SOFT TISSUE NECK W CON (10/26/2021 10:18 PM CDT) Anatomical Region Laterality Modality Neck Computed Tomogra phy 10/26/2021 10:4 0 PM CDT Impressions 10/27/2021 12:01 AM CDT IMPRESSION: 1. ??Likely benign reactive prominence of lymph nodes in bilateral submandibular chain, most prominent posterior superior bilateral submandibular glands. 2. ??Heterogeneous thyroid with partially calcified nodules in both lobes of thyroid with the largest on the right measuring 1.8 x 2.2 cm. ??Recommend nonemergent thyroid ultrasound exam for further evaluation. 3. ??Borderline prominence of the collecting tonsils with no evidence of an abscess or phlegmonous reaction. 4. ??Please see above report for the other findings. This CT exam was performed using one or more of the following dose reduction techniques: ??automated exposure control, adjustment of the mA and/or kV according to patient size, and/or use of iterative reconstruction technique. Referred By: ?? Interpreted By: Kacey Gamble MD, 10/26/2021 10:40 PM Narrative 10/27/2021 12:01 AM CDT EXAMINATION: CT Soft Tissue Neck with intravenous contrast,, Axial Imaging with 2-D Coronal and Sagittal Reconstructions. 100 mL Isovue-370 was administered intravenously. INDICATION: Swelling, concern for abscess/infection. ??Difficulty swallowing food with increased swelling in the throat, facial swelling, tested positive for strep, soreness in the mouth. COMPARISON: None. FINDINGS: ??No mass lesions or areas of abnormal enhancement are identified. ??Mildly prominent lymph nodes in bilateral submandibular chain, especially posterior to bilateral upper submandibular glands are likely benign reactive in nature. ??A few other small benign-appearing lymph nodes scattered bilaterally in the posterior cervical triangle. ??Borderline prominence of bilateral palatine tonsils with no discrete mass, abscess, fluid collection, or phlegmonous reaction. ??Remaining soft tissues of the pharynx and larynx are unremarkable. ??The airway is patent and symmetric. The parotid and submandibular glands are unremarkable. ??Heterogeneous thyroid with partially calcified nodules in both lobes of the thyroid, the largest in the right lobe measuring approximately 1.8 x 2.2 cm. ??No acute osseous abnormality. ??Mild subpleural atelectasis and/or subpleural interstitial scarring is noted laterally in the partially included left upper lobe. ??Minimal dependent atelectasis posteriorly in the partially included lungs. ??Mild chronic spondylosis in the cervical and included upper thoracic spine. ??Unfused accessory ossicle versus calcification of ligamentum nuchae versus old ununited avulsion fracture at the posterior tip of T1 spinous process, with no acute osseous abnormality. Procedure Note Kacey Gamble MD - 10/27/2021 EXAMINATION: CT Soft Tissue Neck with intravenous contrast,, Axial Imagingwith 2-D Coronal and Sagittal Reconstructions. 100 mL Isovue-370 wasadministered intravenously. INDICATION: Swelling, concern for abscess/infection. Difficultyswallowing food with increased swelling in the throat, facial swelling,tested positive for strep, soreness in the mouth. COMPARISON: None. FINDINGS: No mass lesions or areas of abnormal enhancement areidentified. Mildly prominent lymph nodes in bilateral submandibularchain, especially posterior to bilateral upper submandibular glands arelikely benign reactive in nature. A few other small benign-appearinglymph nodes scattered bilaterally in the posterior cervical triangle.Borderline prominence of bilateral palatine tonsils with no discrete mass,abscess, fluid collection, or phlegmonous reaction. Remaining softtissues of the pharynx and larynx are unremarkable. The airway is patentand symmetric. The parotid and submandibular glands are unremarkable.Heterogeneous thyroid with partially calcified nodules in both lobes ofthe thyroid, the largest in the right lobe measuring approximately 1.8 x2.2 cm. No acute osseous abnormality. Mild subpleural atelectasis and/orsubpleural interstitial scarring is noted laterally in the partiallyincluded left upper lobe. Minimal dependent atelectasis posteriorly inthe partially included lungs. Mild chronic spondylosis in the cervical andincluded upper thoracic spine. Unfused accessory ossicle versuscalcification of ligamentum nuchae versus old ununited avulsion fractureat the posterior tip of T1 spinous process, with no acute osseousabnormality. IMPRESSION: 1. Likely benign reactive prominence of lymph nodes in bilateralsubmandibular chain, most prominent posterior superior bilateralsubmandibular glands. 2. Heterogeneous thyroid with partially calcified nodules in both lobesof thyroid with the largest on the right measuring 1.8 x 2.2 cm.Recommend nonemergent thyroid ultrasound exam for further evaluation. 3. Borderline prominence of the collecting tonsils with no evidence of anabscess or phlegmonous reaction. 4. Please see above report for the other findings. This CT exam was performed using one or more of the following dosereduction techniques: automated exposure control, adjustment of the mAand/or kV according to patient size, and/or use of iterativereconstruction technique. Referred By: Interpreted By: Kacey Gamble MD, 10/26/2021 10:40 PM us Emelyn Mari MD CT Final Result * CT ABD+PEL WO CON (10/26/2021 10:18 PM CDT) Anatomical Region Laterality Modality Abdomen Computed Tomogra phy 10/26/2021 10:4 1 PM CDT Impressions 10/27/2021 12:17 AM CDT IMPRESSION: 1. Postoperative changes in the thoracic spine at approximately T8-9 level with spinal stimulator leads entering the spinal canal at approximately T7-8 level with slight rostral extension. 2. ??Transitional lumbosacral junction with presumed partial sacralization of L5 and hypoplastic L5/S1 disc. 3. ??Advanced sacroiliitis. ??Lehc-mh-dozpzxvd pubic osteitis. ??Mild spondylosis in the lumbar and in the included lower thoracic spine. 4. ??Moderate stool in the colon. ??Colonic diverticulosis without diverticulitis. 5. ??Postoperative changes of hernia repair in the anterior periumbilical region and anterior pelvic wall. 6. ??Several small noncalcified pulmonary nodules in the inferior lingula and left lower lobe are stable since 03/14/2019, likely postinfectious/postinflammatory. ??No further routine follow-up imaging is recommended. This CT exam was performed using one or more of the following dose reduction techniques: ??automated exposure control, adjustment of the mA and/or kV according to patient size, and/or use of iterative reconstruction technique. Referred By: ?? Interpreted By: Kacey Gamble MD, 10/26/2021 10:41 PM Narrative 10/27/2021 12:17 AM CDT EXAMINATION: CT Abdomen and Pelvis without intravenous contrast, axial images with 2D coronal and sagittal reconstruction. ?? INDICATION: Nausea/vomiting. ??History of severe urinary tract infection with multiple allergies to antibiotics, back infection. COMPARISON: CT abdomen and pelvis with contrast 09/21/2020. ??CTA chest 03/14/2019. FINDINGS: Multiple small subpleural noncalcified pulmonary nodules in the posterior medial left lower lobe are stable since 03/14/2019, favoring a benign etiology, likely postinfectious/postinflammatory, with the largest nodule measuring approximately 5.6 mm on axial series 3 image 46. ??No new or enlarging nodules are seen. ??A partially included nodule in the posterior medial inferior left lingula on axial image 1 is also stable since 03/14/2019. ??Minimal atelectasis posteriorly in the right lower lobe and inferior lingula. ??No pleural or pericardial effusions. Heart size is normal. ??Mitral annular calcifications. Postcholecystectomy clips with no significant biliary dilatation. ??Liver, spleen, pancreas and bilateral adrenals are normal. ??Stable 1.7 cm cyst laterally in the upper to mid lower right kidney. ??Kidneys are otherwise unremarkable. ??Bladder is normal. ??Uterus appears grossly unremarkable. ??No suspicious adnexal mass and no free fluid in the cul-de-sac. ??Calcified phleboliths bilaterally in the pelvis. Radiodensities from one or more hernia mesh in the anterior abdominal wall in the midline near the umbilicus and extending on either side of midline further inferiorly, most numerous in the lower anterior pelvic wall anterior to the bladder. ??Slight gas in the distal esophagus may be physiologic or may represent mild gastroesophageal reflux disease. ??Mild retained food in the stomach. ??Mild colonic diverticulosis without diverticulitis. ??Bqdg-py-ovrelbco stool in the colon. ??Appendix is normal. ??No ascites or adenopathy. ??Aorta is age-appropriate without aneurysm. Postoperative changes of posterior decompressive laminectomy and the included lower thoracic spine at approximately T7-8 or upper T8 level. ??Presumed bilateral spinal stimulator leads entering the thoracic spinal canal at approximately T8-9 level Transitional lumbosacral junction with partial sacralization of L5 with hypoplastic L5-S1 disc, presuming that the last pair of ribs is at T12 level. ??Mild degenerative changes in the included lower thoracic and lumbar spine. ??Multilevel facet arthropathy. ??Advanced degenerative changes bilateral sacroiliac joints. ??Pubic osteitis. ??No significant arthritic changes in the hips. ??No acute osseous abnormality. Procedure Note Kacey Gamble MD - 10/27/2021 EXAMINATION: CT Abdomen and Pelvis without intravenous contrast, axialimages with 2D coronal and sagittal reconstruction. INDICATION: Nausea/vomiting. History of severe urinary tract infectionwith multiple allergies to antibiotics, back infection. COMPARISON: CT abdomen and pelvis with contrast 09/21/2020. CTA chest03/14/2019. FINDINGS: Multiple small subpleural noncalcified pulmonary nodules in theposterior medial left lower lobe are stable since 03/14/2019, favoring abenign etiology, likely postinfectious/postinflammatory, with the largestnodule measuring approximately 5.6 mm on axial series 3 image 46. No newor enlarging nodules are seen. A partially included nodule in theposterior medial inferior left lingula on axial image 1 is also stablesince 03/14/2019. Minimal atelectasis posteriorly in the right lower lobeand inferior lingula. No pleural or pericardial effusions. Heart size isnormal. Mitral annular calcifications. Postcholecystectomy clips with no significant biliary dilatation. Liver,spleen, pancreas and bilateral adrenals are normal. Stable 1.7 cm cystlaterally in the upper to mid lower right kidney. Kidneys are otherwiseunremarkable. Bladder is normal. Uterus appears grossly unremarkable.No suspicious adnexal mass and no free fluid in the cul-de-sac. Calcifiedphleboliths bilaterally in the pelvis. Radiodensities from one or more hernia mesh in the anterior abdominal remi the midline near the umbilicus and extending on either side of midlinefurther inferiorly, most numerous in the lower anterior pelvic wallanterior to the bladder. Slight gas in the distal esophagus may bephysiologic or may represent mild gastroesophageal reflux disease. Mildretained food in the stomach. Mild colonic diverticulosis withoutdiverticulitis. Lwre-te-fmdecwks stool in the colon. Appendix is normal.No ascites or adenopathy. Aorta is age-appropriate without aneurysm. Postoperative changes of posterior decompressive laminectomy and theincluded lower thoracic spine at approximately T7-8 or upper T8 level.Presumed bilateral spinal stimulator leads entering the thoracic spinalcanal at approximately T8-9 level Transitional lumbosacral junction withpartial sacralization of L5 with hypoplastic L5-S1 disc, presuming thatthe last pair of ribs is at T12 level. Mild degenerative changes in theincluded lower thoracic and lumbar spine. Multilevel facet arthropathy.Advanced degenerative changes bilateral sacroiliac joints. Pubicosteitis. No significant arthritic changes in the hips. No acute osseousabnormality. IMPRESSION: 1. Postoperative changes in the thoracic spine at approximately T8-9 levelwith spinal stimulator leads entering the spinal canal at approximatelyT7-8 level with slight rostral extension. 2. Transitional lumbosacral junction with presumed partial sacralizationof L5 and hypoplastic L5/S1 disc. 3. Advanced sacroiliitis. Yayd-ow-ouurgakz pubic osteitis. Mildspondylosis in the lumbar and in the included lower thoracic spine. 4. Moderate stool in the colon. Colonic diverticulosis withoutdiverticulitis. 5. Postoperative changes of hernia repair in the anterior periumbilicalregion and anterior pelvic wall. 6. Several small noncalcified pulmonary nodules in the inferior lingulaand left lower lobe are stable since 03/14/2019, likelypostinfectious/postinflammatory. No further routine follow-up imaging isrecommended. This CT exam was performed using one or more of the following dosereduction techniques: automated exposure control, adjustment of the mAand/or kV according to patient size, and/or use of iterativereconstruction technique. Referred By: Interpreted By: Kacey Gamble MD, 10/26/2021 10:41 PM Emelyn Mari MD CT Final Result * XR CHEST PORTABLE (10/26/2021 7:21 PM CDT) Anatomical Region Laterality Modality Chest Radiographic Lizeth ging 10/26/2021 7:24 PM CDT Impressions 10/26/2021 7:25 PM CDT Impression: Bronchial wall thickening could indicate bronchitis, reactive airway disease and/or smoking. Ordered By: SERENITY WALKERYOR Interpreted By: Jeremías Watson Jr, MD, 10/26/2021 7:24 PM Narrative 10/26/2021 7:25 PM CDT Date: 10/26/2021 7:21 PM Exam: XR CHEST PORTABLE Comparison: Chest radiography dated 07/19/2021, 05/22/2021. Technique: Single view chest. History: Sore throat. Back surgery last month. Shortness of breath. Worsening symptoms. Findings: The cardiac silhouette and pulmonary vascularity are within normal limits. There are no consolidations nor pleural effusions. There is no pneumothorax. There is bronchial wall thickening. There is calcified disease in the thoracic aorta. There is stable spondylosis in the thoracic spine. Procedure Note Jeremías Watson MD - 10/26/2021 Date: 10/26/2021 7:21 PM Exam: XR CHEST PORTABLE Comparison: Chest radiography dated 07/19/2021, 05/22/2021. Technique: Single view chest. History: Sore throat. Back surgery last month. Shortness of breath.Worsening symptoms. Findings: The cardiac silhouette and pulmonary vascularity are withinnormal limits. There are no consolidations nor pleural effusions. There isno pneumothorax. There is bronchial wall thickening. There is calcifieddisease in the thoracic aorta. There is stable spondylosis in the thoracicspine. Impression: Bronchial wall thickening could indicate bronchitis, reactiveairway disease and/or smoking. Ordered By: SERENITY YATESR Interpreted By: Jeremías Watson Jr, MD, 10/26/2021 7:24 PM us Serenity Storey Juan [employer] GENER[facility] Final Result * ECG 12 lead (10/26/2021 7:11 PM CDT) 10/26/2021 7:11 PM CDT Narrative [facility] ([facility] - 10/26/2021 8:00 PM CDT ?[facility] ? [address] [place] ? Test Date: ?2021-10-26 Pat Name: ? MOHSEN MARQUES ?Department: ?? 41 ? Room: ? INPR Gender: ? Female ? Protozoologist: ?? : ?[id number] ? Requested By: SERENITY MARTINEZ Order Number: [id number] ? Reading MD: ?? Noe Cowan ? Measurements Intervals ?[place] ? Rate: ? 86 ? P: ?43 OR: ? 128 ?QRS: ?13 QRSD: ? 91 ? T: ?64 QT: ? 341 ? QTc: ?409 ? Interpretive Statements SINUS RHYTHM NONSPECIFIC T-WAVE ABNORMALITY Compared to ECG 07/19/2021 13:55:41 T-wave abnormality now present Other ischemic changes, not STEMI Jimmie Ceron PA-C CRITICAL ALERT ISSUED ON 10-26-2021 19:13:15 Procedure Note Noe Cowan MD - 10/26/[address] Test Date: 2021-10-26 Pat Name: MOHSEN MARQUES Department: 41 Room: [facility] Gender: Female Protozoologist: : [id number] Requested By: SERENITY MARTINEZ Order Number: [id number] Reading MD: Noe Cowan Measurements Intervals [place] Rate: 86 P: 43 OR: 128 QRS: 13 QRSD: 91 T: 64 QT: 341 QTc: 409 Interpretive Statements SINUS RHYTHM NONSPECIFIC T-WAVE ABNORMALITY Compared to ECG 07/19/2021 13:55:41 T-wave abnormality now present Other ischemic changes, not STEMI Jimmie Ceron, PA-C CRITICAL ALERT ISSUED ON 10-26-2021 19:13:15 us Serenity Yatesr [employer] ECG ORDERABLES Final Result Performing Organization Address City/[facility]/ZIP Co de Phone Number [facility] * CULTURE THROAT ALL ORG (10/26/2021 6:54 PM CDT) SPEC DESCRIPTION THROAT 10/26/2021 6:54 PM CDT [facility] SPECIAL REQUESTS NO SPECIAL REQUEST 10/26/2021 6:54 PM CDT [facility] CULTURE RESULT LIGHT GROWTH OF NORMAL YESENIA PRESENT 10/28/2021 7:00 AM CDT [facility] THROAT SWAB / Unknown 10/26/2021 6:54 PM CDT 10/26/2021 7:06 PM CDT us Serenity Martinez [employer] MICROBIOLOGY - GENERAL ORDERA BLES Final Result [facility] [address] [id number], [place] [phone] * CULTURE URINE (10/26/2021 6:52 PM CDT) SPEC DESCRIPTION URINE CLEAN CATCH 10/26/2021 7:32 PM CDT [facility] SPECIAL REQUESTS NO SPECIAL REQUEST 10/26/2021 7:32 PM CDT [facility] CULTURE RESULT NO GROWTH 2 DAYS 10/28/2021 8:27 AM CDT [facility] URINE SPECIMEN OBTAINED BY CLEAN CATCH PROCEDURE / Unknown 10/26/2021 6:52 PM CDT 10/26/2021 7:30 PM CDT us Serenity Yatesr [employer] MICROBIOLOGY - GENERAL ORDERA BLES Final Result [facility] [address] [place] [address], [place] [phone] * LACTIC ACID (10/26/2021 6:52 PM CDT) LACTIC ACID VENOUS 1.7 0.4 - 2.0 MMOL/L 10/26/2021 8:00 PM CDT [facility] 10/26/2021 6:52 PM CDT us Serenity Yatesr [employer] [facility] LABORAT[facility] Final Result Performing Organization Address [facility] Co de Phone Number [facility] [address] [place] [address], [place] [phone] * CULTURE, BACTERIA, BLOOD (10/26/2021 6:52 PM CDT) SPEC DESCRIPTION BLOOD 10/26/2021 6:23 PM CDT [facility] SPECIAL REQUESTS NO SPECIAL REQUEST 10/26/2021 6:23 PM CDT [facility] CULTURE RESULT NO GROWTH 5 DAYS 10/31/2021 12:54 PM CDT [facility] BLOOD SPECIMEN OBTAINED FOR BLOOD CULTURE / Unknown 10/26/2021 6:52 PM CDT 10/26/2021 7:05 PM CDT us Serenity Yatesr [employer] MICROBIOLOGY - GENERAL ORDERA BLES Final Result [facility] [address] [place] [id number], * CULTURE, BACTERIA, BLOOD (10/26/2021 6:52 PM CDT) SPEC DESCRIPTION BLOOD 10/26/2021 6:23 PM CDT [facility] SPECIAL REQUESTS NO SPECIAL REQUEST 10/26/2021 6:23 PM CDT [facility] CULTURE RESULT NO GROWTH 5 DAYS 10/31/2021 12:54 PM CDT [facility] BLOOD SPECIMEN OBTAINED FOR BLOOD CULTURE / Unknown 10/26/2021 6:52 PM CDT 10/26/2021 7:05 PM CDT Serenity Martinez [employer] MICROBIOLOGY - GENERAL ORDERA BLES Final Result Performing Organization Address [facility]/ZIP Co de Phone Number [facility] [address] [place] [address], [place] [phone] * TROPONIN, QUANT (10/26/2021 6:52 PM CDT) TROPONIN I HIGH SENSITIVITY 11 <54 ng/L 10/26/2021 7:39 PM CDT [facility] Comment: HIGH DOSES OF BIOTIN, TROPONIN-SPECIFIC AUTOANTIBODIES, AND ANTIBODY THERAPY CONTAINING HAMA MAY INTERFERE WITH THIS TEST RESULT. CORRELATION TO CLINICAL HISTORY AND PRESENTATION RECOMMENDED. 10/26/2021 6:52 PM CDT us Serenity Yatesr [facility] [facility] Final Result Performing Organization Address City/[facility]/ZIP Co de Phone Number [facility] [address] [place] [address], [place] [phone] * (ABNORMAL) URINALYSIS WI REFLEX TO CULTURE (10/26/2021 6:52 PM CDT) SPECIMEN TYPE URINE CLEAN CATCH 10/26/2021 6:51 PM CDT [facility] COLOR (U) LIGHT YELLOW 10/26/2021 7:29 PM T [facility] TRANSPARENCY CLEAR 10/26/2021 7:29 PM T [facility] SPECIFIC GRAVITY (U) 1.028 1.001 - 1.030 10/26/2021 7:29 PM T [facility] U PH 5.0 5.0 - 9.0 10/26/2021 7:29 PM T [facility] LEUKOCYTES (U) 25(A) NEGATIVE 10/26/2021 7:29 PM CDT [facility] NITRITES NEGATIVE NEGATIVE 10/26/2021 7:29 PM T [facility] PROTEIN (U) NEGATIVE <30 MG/DL 10/26/2021 7:29 PM T [facility] URINE GLUCOSE >1000(A) NORMAL MG/DL 10/26/2021 7:29 PM T [facility] KETONES MG/DL (U) NEGATIVE NEGATIVE MG/DL 10/26/2021 7:29 PM T [facility] UROBILINOGEN NORMAL NORMAL MG/DL 10/26/2021 7:29 PM T [facility] BILIRUBIN (U) NEGATIVE NEGATIVE MG/DL 10/26/2021 7:29 PM T [facility] BLOOD (U) 1+(A) NEGATIVE 10/26/2021 7:29 PM T [facility] CULTURE & SENSITIVITY INDICATED? SPECIMEN SETUP FOR CULTURE 10/26/2021 7:29 PM [facility] MUCUS RARE /LPF 10/26/2021 7:29 PM [facility] WBC/HPF 22(H) <6 /HPF 10/26/2021 7:29 PM T [facility] RBC/HPF 3 <6 /HPF 10/26/2021 7:29 PM CDT [facility] URINE SPECIMEN OBTAINED BY CLEAN CATCH PROCEDURE / Unknown 10/26/2021 6:52 PM CDT Serenity Martinez [employer] URINE ORDERABLES Final Result [facility] [address] [place] [address], [place] [phone] * (ABNORMAL) COMPREHENSIVE METABOLIC PANEL (10/26/2021 6:52 PM CDT) GLUCOSE 364(H) 70 - 99 MG/DL 10/26/2021 7:39 PM CDT [facility] BUN 22(H) 7 - 18 MG/DL 10/26/2021 7:39 PM CDT [facility] CREATININE S/P/B 1.11(H) 0.55 - 1.02 MG/DL 10/26/2021 7:39 PM CDT [facility] SODIUM S/P/B 136 136 - 145 MMOL/L 10/26/2021 7:39 PM CDT [facility] POTASSIUM S/P/B 4.2 3.5 - 5.1 MMOL/L 10/26/2021 7:39 PM CDT [facility] CHLORIDE S/P/B 104 100 - 108 MMOL/L 10/26/2021 7:39 PM CDT [facility] CO2 22.1 21 - 32 MMOL/L 10/26/2021 7:39 PM CDT [facility] CALCIUM S/P/B 9.3 8.5 - 10.1 MG/DL 10/26/2021 7:39 PM CDT [facility] BILIRUBIN TOTAL S/P/B 0.5 0.2 - 1.2 MG/DL 10/26/2021 7:39 PM T [facility] Comment: THIS ASSAY IS NOT RECOMMENDED FOR PATIENTS UNDERGOING TREATMENT WITH ELTROMBOPAG DUE TO THE POTENTIAL FOR FALSELY ELEVATED RESULTS. TOTAL PROTEIN S/P/B 8.9(H) 6.4 - 8.2 G/DL 10/26/2021 7:39 PM CDT [facility] ALBUMIN S/P/B 3.3(L) 3.4 - 5.0 G/DL 10/26/2021 7:39 PM CDT [facility] AST 12(L) 15 - 37 U/L 10/26/2021 7:39 PM T [facility] ALT 26 14 - 55 U/L 10/26/2021 7:39 PM T [facility] ALKALINE PHOSPHATASE S/P/B 83 50 - 136 U/L 10/26/2021 7:39 PM T [facility] ANION GAP 9.9 5 - 15 MMOL/L 10/26/2021 7:39 PM T [facility] BUN CREATININE RATIO 19.8 6 - 26 10/26/2021 7:39 PM T [facility] A/G RATIO 0.6(L) 1.0 - 2.0 RATIO 10/26/2021 7:39 PM T [facility] GFR ESTIMATE 55(L) >90 ML/MIN/1.7 3 M2 10/26/2021 7:39 PM T [facility] Comment: NOTE: eGFR is not calculated for patients <18 years of age. This is an estimated GFR calculation using the new CKD EPI creatinine equation without race and so does not require a correction factor for race. This estimated GFR should not be used for calculating drug doses. 10/26/2021 6:52 PM CDT Serenity Martinez [facility] [employer] [facility] LAB[facility]AT[facility] Final Result [facility] [address] [place] [address], * (ABNORMAL) CBC W/DIFF AUTOMATED (10/26/2021 6:52 PM CDT) WBC 16.2(H) 4.5 - 11.0 x10'3/uL 10/26/2021 7:16 PM CDT [facility] RBC 4.58 4.20 - 5.40 x10'6/uL 10/26/2021 7:16 PM CDT [facility] HGB 13.4 12.0 - 16.0 G/DL 10/26/2021 7:16 PM CDT [facility] HCT 42.8 38.0 - 48.0 % 10/26/2021 7:16 PM CDT [facility] MCV 93.4 81.0 - 99.0 FL 10/26/2021 7:16 PM CDT [facility] MCH 29.3 27.0 - 31.0 PG 10/26/2021 7:16 PM CDT [facility] MCHC 31.3(L) 32.0 - 36.0 G/DL 10/26/2021 7:16 PM CDT [facility] RDW 14.0 11.5 - 14.5 % 10/26/2021 7:16 PM CDT [facility] PLT 345 130 - 400 x10'3/uL 10/26/2021 7:16 PM CDT [facility] MPV 9.9 9.3 - 12.2 FL 10/26/2021 7:16 PM CDT [facility] DIFFERENTIAL TYPE AUTOMATED DIFFERENTIAL 10/26/2021 7:16 PM CDT [facility] NEUTROPHILS % 75.5 % 10/26/2021 7:16 PM CDT [facility] LYMPHOCYTES % 15.7 % 10/26/2021 7:16 PM CDT [facility] MONOCYTES % 7.9 % 10/26/2021 7:16 PM CDT [facility] EOSINOPHILS 0.1 % 10/26/2021 7:16 PM CDT [facility] BASOPHILS 0.2 % 10/26/2021 7:16 PM CDT [facility] IMMATURE GRANS % 0.6 % 10/27/19 7:16 PM CDT [facility] ABS. NEUTROPHILS TOTAL 12.20(H) 1.80 - 7.70 x10'3/uL 10/26/2021 7:16 PM CDT [facility]. LYMPHOCYTES 2.54 1.00 - 4.80 x10'3/uL 10/26/2021 7:16 PM CDT [facility] MONOCYTES 1.28(H) 0.24 - 0.86 x10'3/uL 10/26/2021 7:16 PM CDT [facility]. EOSINOPHILS 0.01(L) 0.04 - 0.36 x10'3/uL 10/26/2021 7:16 PM CDT [facility]. BASOPHILS 0.03 0.01 - 0.08 x10'3/uL 10/26/2021 7:16 PM CDT [facility]. IMMATURE GRANULOCYTES 0.10 0.00 - 0.49 x10'3/uL 10/26/2021 7:16 PM CDT [facility] 10/26/2021 6:52 PM CDT us Serenity Martinez [facility] Final Result [facility] [address] [place] [address], [place] [phone] documented in this encounter Visit Diagnoses Diagnosis Odynophagia- Primary Dysphagia, unspecified Hyperglycemia due to diabetes mellitus ([facility]) 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) Urinary tract infection, site not specified documented in this encounter Administered Medications Inactive Administered Medications - up to 3 most recent administrations Medication Order MAR Action Action Date Dose Rate Site insulin regular (NOVOLIN R/HUMULIN R) injection 8 Units 8 Units, Subcutaneous, Once, 1 dose, On Mon10/26/21 at 2330, For sliding scale, activate Sliding Scale Insulin order set. Given 10/26/2021 11:46 PM CDT 8 Units Right Arm iopamidol (ISOVUE-370) 76 % injection 100 mL 100 mL, Intravenous, IMG once as needed, Contrast, 1 dose, Starting on Mon10/26/21 at 2218, Until Mon10/26/21 at 2219 Given 10/26/2021 10:19 PM CDT 100 mLs Right Arm morphine injection 4 mg 4 mg, Intravenous, Once, 1 dose, On Mon10/26/21 at 2300 Given 10/26/2021 11:16 PM CDT 4 mg ondansetron (ZOFRAN) injection 4 mg 4 mg, Intravenous, Once, 1 dose, On Mon10/26/21 at 2300, IV push over 2-5 minutes. Given 10/26/2021 11:16 PM CDT 4 mg sodium chloride 0.9% bolus infusion SOLN 1,000 mL 1,000 mL, Intravenous, Administer over 15 Minutes, Bolus (Once), 1 dose, On Mon10/26/21 at 2200 New Bag 10/26/2021 11:17 PM CDT 1,000 mLs documented in this encounter Active and Recently Administered Medications Times are shown in CDT. Scheduled Medication Order 10/25/2021 10/26/2021 10/27/2021 insulin regular (NOVOLIN R/HUMULIN R) injection 8 Units (COMPLETED) 8 Units, Subcutaneous, Once, 1 dose, On Mon10/26/21 at 2330, For sliding scale, activate Sliding Scale Insulin order set. 2346 (Given - Provider: Justen Paul, RN) morphine injection 4 mg (COMPLETED) 4 mg, Intravenous, Once, 1 dose, On Mon10/26/21 at 2300 2316 (Given - Provider: Justen Paul, RN) ondansetron (ZOFRAN) injection 4 mg (COMPLETED) 4 mg, Intravenous, Once, 1 dose, On Mon10/26/21 at 2300, IV push over 2-5 minutes. 2316 (Given - Provider: Justen Paul, RN) sodium chloride 0.9% bolus infusion SOLN 1,000 mL (COMPLETED) 1,000 mL, Intravenous, Administer over 15 Minutes, Bolus (Once), 1 dose, On Mon10/26/21 at 2200 2317 (New Bag - Provider: Justen Paul, NURIS) 0150 (Infusion Stop Time - Provider: Elizabet Garcia RN) PRN Medication Order 10/25/2021 10/26/2021 10/27/2021 iopamidol (ISOVUE-370) 76 % injection 100 mL (COMPLETED) 100 mL, Intravenous, IMG once as needed, Contrast, 1 dose, Starting on Mon10/26/21 at 2218, Until Mon10/26/21 at 2219 2219 (Given - Provider: Wilfrido Lemons, RTR) documented in this encounter Care Teams Independent Freight Agent Relationship Specialty Start Date End Date Justen Gale MD [address] [place] [id number] [place] [address] PCP - General FAMILY PRACTICE 08/20/17 Meena Bansal MD Three [facility]. [facility] [address] [place] [address] Rice Laborer Steel Handling CARDIOVASCULAR DISEASE 04/24/16 documented as of this encounter
--- OUTSIDE RECORDS SUMMARY | 2024-04-26 02:40 | XMS_ITS | Encounter Summary ---
Author Organization [facility] Address [address] [place] [address]. [place] [address] [place] [address] Care Team Providers Care Scouts Name Role Phone Meena Bansal MD Unavailable [phone] Justen Gale MD Primary Care Provider [phone] Reason for Referral * Imaging (Routine) - Closed Specialty Diagnoses / Procedures Referred By Elyssa benavides Referred To Contact RADIOLOGY Diagnoses Pain in both lower extremities Procedures USV DIAZ DUPLEX LOW EXT YANNICK Leah Mackay NP Phone: tel: fax: Referral ID Status Reason Start Date Expiration Date Visits Re quested Visits Authorized [id number] Closed 05/31/2021 07/01/2022 1 1 CIENCE TECHNICIAN Reason for Visit * Reason Comments Leg Pain Encounter Details Date Type Department Care Team (Late st Contact Info) Description 05/31/2021 7:47 PM GEOSCIENCE TECHNICIAN - 05/31/2021 8:27 PM GEOSCIENCE TECHNICIAN Emergency [facility] [place] [address] Leah Mackay NP [address] [id number] Leg Pain Discharge Disposition: Home or Self Care [...] Sexual Orientation Straight 03/18/2018 3: 01 AM GEOSCIENCE TECHNICIAN COVID-19 Exposure Response Date Recorded In the last 10 days, have jenny u been in contact with someone who was confirmed or suspected to have Coronavirus/COVID-19? No / Unsure 05/31/2021 6:26 PM GEOSCIENCE TECHNICIAN documented as of this encounter Last Filed Vital Signs Vital Sign Reading Time Taken Comments Blood Pressure 152/102 05/31/2021 7:11 PM GEOSCIENCE TECHNICIAN Pulse 90 05/31/2021 7:11 PM GEOSCIENCE TECHNICIAN Temperature 36.4 ??C (97.5 ??F) 05/31/2021 7:11 PM CS T Respiratory Rate 18 05/31/2021 7:11 PM GEOSCIENCE TECHNICIAN Oxygen Saturation 98% 05/31/2021 7:11 PM GEOSCIENCE TECHNICIAN Inhaled Oxygen Concentration - - Weight 128.8 kg (283 lb 15.2 oz) 05/31/2021 7:11 PM GEOSCIENCE TECHNICIAN Height 154.9 cm (5' 1 ) 05/31/2021 7:11 PM GEOSCIENCE TECHNICIAN Body Mass Index 53.65 05/31/2021 7:11 PM GEOSCIENCE TECHNICIAN documented in this encounter Functional Status * [...] this encounter Discharge Instructions * Discharge Instructions* Leah Mackay NP - 05/31/2021 8:15 PM GEOSCIENCE TECHNICIAN Continue xarelto Return at 645 am tomorrow, 2.8 for lower extremity dopplers. Return IF YOU DEVELOP any chest pain or sob through the night CIENCE TECHNICIAN documented in this encounter Medications at [...] as of this encounter ED Notes * Leah Mackay, CURTIS - 05/31/2021 8:03 PM CST Emergency Department Note Chief Complaint Chief Complaint Patient presents with ??? Leg Pain History of Present Illness 65-year-old female, was diagnosed with Covid at the end of March, and had several complications related. She returns today because she has had left lower leg pain more in the anterior aspects that have bothered her for the last 3 or 4 days. She called her doctor's office who recommended she come to the emergency room to evaluate her for DVT. She has a history of DVTs and PE. She is on Xarelto however, had stopped the medication for 6 days for an anticipated procedure She stopped medication per instructions from May 16- in anticipation of a procedure on the which was called off. She resumed the medication on the , she developed symptoms on Monday the . She denies chest pain or shortness of breath no fever chills no falls or injuries. She states that her right knee has been bothering her since she had COVID, it is her replacement knee. Medical History ALLERGIES: Allergies Allergen Reactions ??? [...] Types: Cigarettes Quit date: 03/23/1977 Years since quittin.2 ??? Smokeless tobacco: Never Used Substance Use Topics ??? Alcohol use: No ??? Drug use: No Review of Systems Review of Systems Constitutional: Negative for chills and fever. HENT: Negative for sore throat. Eyes: Negative for visual disturbance. Respiratory: Negative for cough and shortness of breath. Cardiovascular: Positive for leg swelling. Negative for chest pain. Gastrointestinal: Negative for abdominal pain, constipation, diarrhea and nausea. Genitourinary: Negative for difficulty urinating. Skin: Negative for rash. Neurological: Negative for light-headedness and headaches. Psychiatric/Behavioral: Negative for decreased concentration. All other systems reviewed and are negative. Physical Exam Filed Vitals: 05/31/21 1911 BP: (!) 152/102 Pulse: 90 Resp: 18 Temp: 97.5 ??F (36.4 ??C) TempSrc: Oral SpO2: 98% Weight: 128.8 kg (283 lb 15.2 oz) Height: 5' 1 (1.549 m) Physical Exam Vitals reviewed. Constitutional: General: She is not in acute distress. Appearance: She is well-developed. She is obese. HENT: Head: Normocephalic. Eyes: Pupils: Pupils are equal, round, and reactive to light. Cardiovascular: Rate and Rhythm: Normal rate and regular rhythm. Heart sounds: Normal heart sounds. No murmur heard. Pulmonary: Effort: Pulmonary effort is normal. Breath sounds: Normal breath sounds. Abdominal: General: Bowel sounds are normal. Palpations: Abdomen is soft. Tenderness: There is no abdominal tenderness. Musculoskeletal: General: Tenderness present. Cervical back: Neck supple. Comments: Tender to the left anterior aspect of lower extremity, both legs are tense and difficult to assess, no cords palpable. No erythema noted. Skin: General: Skin is warm and dry. Coloration: Skin is not pale. Neurological: Mental Status: She is alert and oriented to person, place, and time. Psychiatric: Behavior: Behavior normal. Thought Content: Thought content normal. Judgment: Judgment normal. Diagnostic Studies / Procedures ELECTROCARDIOGRAMS: No results found for this visit on 05/31/21. LABORATORY STUDIES: No results found for this visit on 05/31/21. IMAGING STUDIES USV DIAZ DUPLEX LOW EXT YANNICK (Results Pending) ED Course / Medical Decision Making Results: Discussed with Dr. Cervantes, as she is already on Xarelto, will have her get venous duplex in the morning. She is taking treatment and therapy and has no chest pain shortness of breath no tachycardia or signs of hypoxia. Discussed with patient and she is agreeable to plan. I reviewed old medical records, obtained from Care Everywhere, as well as internal past medical records, where needed and available. I interpreted the patient's pulse oximeter at rest, which is 98% on room air which is normal and determined that this patient is not hypoxic The elements of the HPI, review of systems, past medical history, past surgical history, past family history, social history, medication list, allergies, and examination documented above were personally obtained by me via direct interaction of the patient when possible, with the exception of circumstances or patient factors limiting my ability to do so, as above. In instances where nursing or other providers documented this information prior to my encounter, I personally confirmed the accuracy of this information to the best of my ability given the circumstances. Laboratory Data Reviewed: Noted labs, and abnormals noted on work sheet Imaging Studies Reviewed:ED Course: Patient was provided with a prescription : see discharge instructions Outpatient recommendation to PCP ordered, and provided with phone number to call for an appointment. Patient instructed to call on the next business day during business hours, and informed that he should be evaluated by this specialist within 1 week Patient provided with printed and verbal discharge care instructions and was instructed to return to the emergency department immediately with worsening symptoms or new worrisome symptoms. I did spend time answering questions. Patient condition at time of discharge stable Diagnoses & treatment discussed with patient Patient expressed understanding and agreed. ED Diagnosis: Clinical Impression Pain in both lower extremities (Primary) Disposition: Discharge Medications - No data to display Clinical Impression Pain in both lower extremities (Primary) Discharge Medication List as of 05/31/2021 8:15 PM Medications - No data to display Discharge Medication List as of 05/31/2021 8:15 PM Disposition: Discharge Follow-Up: Justen Gale MD [address] [place] [address] As needed LEAH MACKAY NP 05/31/2021 Note: This H+P / note was created with the aid of dictation software, thus there may be some word substitutions or errors. Leah Mackay NP 05/31/21 2233 Cosigned by Jayro Cervantes MD at 05/31/2021 11:16 PM GEOSCIENCE TECHNICIAN CIENCE TECHNICIAN CIENCE TECHNICIAN * Hugh Tobias RN - 05/31/2021 7:13 PM CST Pt ambulated to the ER with co leg pain. Pt tried to see her PCP but they refused to see her and sent her to the ER. Pt had COVID on 04-19-21. Pt now has left lower leg pain that is worse at night. Pt has a hx of blood clots and is on a blood thinner. Pt is AOx4 HUGH TOBIAS RN CIENCE TECHNICIAN documented in this encounter Plan of Treatment Not on file documented as of this encounter Results * USV DIAZ DUPLEX LOW EXT YANNICK (06/01/2021 7:37 AM GEOSCIENCE TECHNICIAN) Anatomical Region Laterality Modality Extremity Vascular Ultraso und 06/01/2021 7:21 AM GEOSCIENCE TECHNICIAN Narrative 2021 5:29 PM GEOSCIENCE TECHNICIAN ?VENOUS DUPLEX IMAGING ?BILATERAL LOWER EXTREMITY ? VASCULAR LAB Pat.Name: ??MOHSEN MARQUES ?Pat.ID: ?[id number] ? St.Date: ?? 06/01/2021 ?Refer.: ??Justen Gale [...] IMAGING BILATERAL LOWER EXTREMITY VASCULAR LAB Pat.Name: LEONAMBER MOHSEN M Pat.ID: [id number] .Date: 06/01/2021 : Justen Gale Exam Time: 7:21:00 AM Study [...] PM Jeremías Danielson M.D. us Leah Mackay CONTRACT ADMINISTRATION SPECIALIST US VASC Final Result documented in this encounter Visit Diagnoses Diagnosis Pain in both lower extremities- Primary Pain in both lower extremities documented in this encounter Care Teams Scouts Relationship Specialty Start Date End Date Justen Gale MD [address] [place] [address] [place] [address] PCP - General FAMILY PRACTICE 08/20/17 Meena Bansal MD [address] [facility] [address] [place] [address] [place] [employer] Case Manager CARDIOVASCULAR DISEASE 04/24/16 documented as of this encounter
--- OUTSIDE RECORDS SUMMARY | 2024-04-26 02:40 | XMS_ITS | Encounter Summary ---
Author Organization [facility] Address [address] [place] [address]. [place] [address] [place] [address] Care Team Providers Care Tracer Clerk Name Role Phone Meena Bansal MD Unavailable [phone] Justen Gale MD Primary Care Provider Encounter Details Date Type Department Care Team (Latest Contact Info) Description 07/19/2021 Travel Social History Tobacco Use Types Packs/Day [...] Sexual Orientation Straight 03/18/2018 3: 01 AM FINANCIAL MANAGEMENT COVID-19 Exposure Response Date Recorded In the [...] on filedocumented in this encounter Care Teams Tracer Clerk Relationship Specialty Start Date End Date Justen Gale MD [id number] [place] [address] PCP - General FAMILY PRACTICE 08/20/17 Meena Bansal MD [facility]. [facility] [address] [place] [address] [place] Lapidary Apprentice CARDIOVASCULAR DISEASE 04/24/16 documented as of this encounter
--- OUTSIDE RECORDS SUMMARY | 2024-04-26 02:40 | XMS_ITS | Encounter Summary ---
Author Organization [facility] Address [address] [place] [address]. [place] [address] [place] [address] Care Team Providers Care Probate Paralegal Name Role Phone Meena Bansal MD Unavailable [phone] Justen Gale MD Primary Care Provider [phone] Encounter Details Date Type Department Care Team (Latest Contact Info) Description 03/03/2021 Travel Social History Tobacco Use Types Packs/Day [...] Sexual Orientation Straight 03/18/2018 3: 01 AM DEAN OF FACULTY COVID-19 Exposure Response Date Recorded In the last month, have you been in contact with someone who was confirmed or suspected to have Coronavirus / COVID-19? No / Unsure 03/03/2021 2:01 AM DEAN OF FACULTY documented as of this encounter Functional Status [...] Author Status No 09/06/2020 12:55 AM Della Saze RN Active documented in this encounter Plan of Treatment Not on file documented as of this encounter Visit Diagnoses Not on filedocumented in this encounter Care Teams Probate Paralegal Relationship Specialty Start Date End Date Justen Gale MD [id number] [place] [address] PCP - General FAMILY PRACTICE 08/20/17 Meena Bansal MD [facility]. [facility] [address] [place] [address] [place] [employer]ending Tank Tender Helper CARDIOVASCULAR DISEASE 04/24/16 documented as of this encounter
--- OUTSIDE RECORDS SUMMARY | 2024-04-26 02:40 | XMS_ITS | Encounter Summary ---
Author Organization [facility] Address [address] [place] [address]. [place] [address] [place] [address] Care Team Providers Care Journeyman Powerhouse Operator Name Role Phone Meena Bansal MD Unavailable [phone] Gerardo Hoffman MD Primary Care Provider [phone] Reason for Visit * Reason Comments Weakness Encounter Details Date Type Department Care Team (Late st Contact Info) Description 05/22/2021 6:10 PM SERVICE CREW LEADER - 05/22/2021 10:35 PM SERVICE CREW LEADER Emergency [facility] Emergency Room [address] [place], [place] [id number] Jhon Carrizales MD [address], [place] [id number] Weakness Discharge Disposition: Home or Self Care (Routine [...] Sexual Orientation Straight 03/18/2018 3: 01 AM SERVICE CREW LEADER COVID-19 Exposure Response Date Recorded In the last month, have you been in contact with someone who was confirmed or suspected to have Coronavirus / COVID-19? No / Unsure 05/22/2021 5:44 PM SERVICE CREW LEADER documented as of this encounter Last Filed Vital Signs Vital Sign Reading Time Taken Comments Blood Pressure 131/88 05/22/2021 10:15 PM SERVICE CREW LEADER Pulse 78 05/22/2021 10:15 PM SERVICE CREW LEADER Temperature 36.2 ??C (97.2 ??F) 05/22/2021 5:54 PM CS T Respiratory Rate 18 05/22/2021 10:15 PM SERVICE CREW LEADER Oxygen Saturation 99% 05/22/2021 10:15 PM SERVICE CREW LEADER Inhaled Oxygen Concentration - - Weight 128.8 kg (284 lb) 05/22/2021 5:54 PM SERVICE CREW LEADER Height 154.9 cm (5' 1 ) 05/22/2021 5:54 PM SERVICE CREW LEADER Body Mass Index 53.66 05/22/2021 5:54 PM SERVICE CREW LEADER documented in this encounter Functional Status * [...] cannot be sent through Care Everywhere. * Generalized Weakness (Belizean) documented in this encounter Medications at Time [...] as of this encounter ED Notes * Jhon Carrizales MD - 05/22/2021 6:36 PM CST [place], [place] EMERGENCY DEPARTMENT ENCOUNTER Chief Complaint Chief Complaint Patient presents with ??? Weakness History of Present Illness Provider at Bedside Date/Time Event User Comments 05/22/21 9243 Provider at Bedside Assessing Patient TYLOR GUIDO History provided by: Patient supervisor carbon paper coating used: No 65-year-old female with a pmh of diabetes, HTN and DVT/PE on xarelto who presents with generalized weakness for several days. Patient reports she has become increasingly more weak and fatigued since the beginning of the week. Patient also mentions nausea and dry mouth despite drinking a lot of water. She was evaluated in this ED on 05/15 with similar complaints. She reports she felt much better after fluids and she felt she was dehydrated. No urinary symptoms. No fever, no chills. No other complaints. patient was covid positive 1 month ago, has been vaccinated. No chest pain, vomiting, diarrhea or fever. No leg swelling. Medical History ALLERGIES: Allergies Allergen Reactions ??? [...] tablet (25 mg total) by mouth daily. 5/17/21 Kerrie Leonard PA-C naloxone 4 MG/0.1ML nasal [...] Systems Review of Systems Constitutional: Positive for fatigue. Negative for fever. Eyes: Negative for pain. Respiratory: Negative for shortness of breath. Cardiovascular: Negative for chest pain. Gastrointestinal: Negative for abdominal pain, diarrhea, nausea and vomiting. Genitourinary: Negative for dysuria. Musculoskeletal: Negative for myalgias. Skin: Negative for rash. Neurological: Negative for seizures, light-headedness, numbness and headaches. Psychiatric/Behavioral: The patient is not nervous/anxious. All other systems reviewed and are negative except as in HPI and as noted above. Physical Exam Filed Vitals: 05/22/21 1754 05/22/21 1945 05/22/21 2207 05/22/21 2215 BP: 122/78 (!) 153/80 131/88 131/88 Pulse: 101 88 78 78 Resp: 20 18 20 18 Temp: 97.2 ??F (36.2 ??C) TempSrc: Oral SpO2: 97% 96% 99% 99% Weight: 128.8 kg (284 lb) Height: 5' 1 (1.549 m) Physical Exam Vitals and nursing note reviewed. Constitutional: General: She is not in acute distress. Appearance: She is well-developed. HENT: Head: Normocephalic and atraumatic. Eyes: Conjunctiva/sclera: Conjunctivae normal. Pupils: Pupils are equal, round, and reactive to light. Cardiovascular: Rate and Rhythm: Normal rate and regular rhythm. Heart sounds: Normal heart sounds. Pulmonary: Effort: Pulmonary effort is normal. No respiratory distress. Breath sounds: Normal breath sounds. Abdominal: Palpations: Abdomen is soft. Tenderness: There is no abdominal tenderness. Musculoskeletal: Cervical back: Normal range of motion and neck supple. Skin: General: Skin is warm and dry. Neurological: Mental Status: She is alert and oriented to person, place, and time. Mental status is at baseline. Psychiatric: Behavior: Behavior normal. Diagnostic Studies / Procedures ELECTROCARDIOGRAMS: Results for orders placed or performed during the hospital encounter of 05/22/21 ECG [address] [facility] [address] [place] [address] Test Date: 2021-05-22 Pat Name: MOHSEN MARQUES Department: Room: Gender: Female Company Manager: JODY : 1955 Requested By: TYLOR GUIDO Order Number: [id number] Reading MD: Measurements Intervals Summers Rate: 93 P: 35 CO: 130 QRS: -6 QRSD: 93 T: 41 QT: 358 QTc: 446 Interpretive Statements SINUS RHYTHM Compared to ECG 05/15/2021 14:52:08 No significant changes LABORATORY STUDIES: Results for orders placed or performed during the hospital encounter of 05/22/21 CBC W/DIFF AUTOMATED Result Value Ref Range WBC 11.1 (H) 4.5 - 11.0 x10'3/uL RBC 4.78 4.20 - 5.40 x10'6/uL HGB 13.7 12.0 - 16.0 G/DL HCT 44.0 38.0 - 48.0 % MCV 92.1 81.0 - 99.0 FL MCH 28.7 27.0 - 31.0 PG MCHC 31.1 (L) 32.0 - 36.0 G/DL RDW 14.0 11.5 - 14.5 % PLT 317 130 - 400 x10'3/uL MPV 9.7 9.3 - 12.2 FL DIFFERENTIAL TYPE AUTOMATED DIFFERENTIAL NEUTROPHILS 56.5 % LYMPHOCYTES 29.8 % MONOCYTES 9.6 % EOSINOPHILS 3.2 % BASOPHILS 0.5 % IMMATURE GRANS 0.4 % ABS. NEUTROPHILS TOTAL 6.26 1.80 - 7.70 x10'3/uL ABS. LYMPHOCYTES 3.30 1.00 - 4.80 x10'3/uL ABS. MONOCYTES 1.06 (H) 0.24 - 0.86 x10'3/uL ABS. EOSINOPHILS 0.35 0.04 - 0.36 x10'3/uL ABS. BASOPHILS 0.05 0.01 - 0.08 x10'3/uL ABS. IMMATURE GRANULOCYTES 0.04 0.00 - 0.49 x10'3/uL COMPREHENSIVE METABOLIC PANEL Result Value Ref Range GLUCOSE 137 (H) 70 - 99 MG/DL BUN 20 (H) 7 - 18 MG/DL CREATININE S/P/B 0.94 0.55 - 1.02 MG/DL SODIUM 138 136 - 145 MMOL/L POTASSIUM 4.4 3.5 - 5.1 MMOL/L CHLORIDE S/P/B 103 100 - 108 MMOL/L CO2 31.4 21 - 32 MMOL/L CALCIUM 9.8 8.5 - 10.1 MG/DL BILIRUBIN TOTAL S/P/B 0.4 0.2 - 1.2 MG/DL TOTAL PROTEIN S/P/B 8.6 (H) 6.4 - 8.2 G/DL ALBUMIN S/P/B 3.3 (L) 3.4 - 5.0 G/DL AST 30 15 - 37 U/L ALT 25 14 - 55 U/L ALKALINE PHOSPHATASE S/P/B 78 50 - 136 U/L ANION GAP 3.6 (L) 5 - 15 MMOL/L BUN CREATININE RATIO 21.2 6 - 26 A/G RATIO 0.6 (L) 1.0 - 2.0 RATIO eGFR Non-Afr. Amer. 64 (L) >90 ML/MIN/1.73 M2 eGFR Afr. Amer. 74 (L) >90 ML/MIN/1.73 M2 URINALYSIS WI REFLEX TO CULTURE Specimen: URINE, CLEAN CATCH Result Value Ref Range Specimen Type URINE CLEAN CATCH COLOR (U) LIGHT YELLOW TRANSPARENCY CLEAR Specific [place] (U) 1.023 1.001 - 1.030 U PH 6.0 5.0 - 9.0 LEUKOCYTE ESTERASE NEGATIVE NEGATIVE NITRITES NEGATIVE NEGATIVE PROTEIN (U) NEGATIVE <30 MG/DL URINE GLUCOSE NORMAL NORMAL MG/DL U KETONES NEGATIVE NEGATIVE MG/DL UROBILINOGEN NORMAL NORMAL MG/DL BILIRUBIN (U) NEGATIVE NEGATIVE MG/DL BLOOD TRACE (A) NEGATIVE CULTURE & SENSITIVITY INDICATED? CULTURE IS NOT INDICATED MUCUS RARE /LPF WBC/HPF 2 <6 /HPF RBC/HPF 6 (H) <6 /HPF SQUAMOUS EPITHELIALS RARE /HPF TROPONIN, QUANT Result Value Ref Range TROPONIN I HIGH SENSITIVITY 9 <54 ng/L TROPONIN, QUANT Result Value Ref Range TROPONIN I HIGH SENSITIVITY 10 <54 ng/L CORONAVIRUS (COVID-19) ANTIGEN [IN-HOUSE ROBERTO] Specimen: NASAL Result Value Ref Range CORONAVIRUS ANTIGEN IA NEGATIVE NEGATIVE Specimen Type NASAL FIRST TEST NO EMPLOYED IN HEALTHCARE NO SYMPTOMATIC DEFINED BY CDC YES DATE OF SYMPTOM ONSET [id number] HOSPITALIZATION STATUS UNKNOWN RESIDENT OF [facility] NO IMAGING STUDIES XR CHEST PORTABLE Final Result by User, [email or web address] (05/22 1909) EXAMINATION: CHEST X-RAY ONE VIEW EXAM TIME: 1835 hours. COMPARISON: 05/15/2021. HISTORY: Generalized weakness for several days. FINDINGS: A single portable AP view of the chest is submitted for evaluation. The heart is within normal limits in size. Pulmonary vascularity is within normal limits. Calcified granulomata. The lungs are well expanded without focal airspace consolidation. No pleural effusions. No pneumothorax. IMPRESSION: No acute cardiopulmonary process. Referred By: Interpreted By: Tina Ariza MD, 05/22/2021 7:08 PM ED Course / Medical Decision Making MDM Number of Diagnoses or Management Options Weakness Diagnosis management comments: Patient presenting with feeling weak and tired. Denies any other complaints. No focal weakness. Will get basic blood work. Will give fluids. Will reassess 2 sets troponin negative. UA negative Chest x-ray negative Covid negative Patient reports feeling much better after fluids. She reports her weakness resolved. Feels more energized. Ambulating and tolerating p.o. intake. Well- appearing. Saturating 99% on room air. Will discharge follow-up with her PCP. Data reviewed: All current, pertinent and timely studies (laboratory, imaging, and procedures) wereordered and results reviewed by Jhon Carrizales MD unless otherwise noted. Triage notes and available nursing notes reviewed. Previous medical record reviewed when available. Repeat vital signs reviewed. Medications sodium chloride 0.9% bolus infusion SOLN 500 mL (0 mLs Intravenous Infusion Stop Time 05/22/211958) acetaminophen (TYLENOL) tablet 650 mg (650 mg Oral Given 05/22/211954) sodium chloride 0.9% bolus infusion SOLN 500 mL (0 mLs Intravenous Infusion Stop Time 05/22/212222) Clinical Impression Weakness (Primary) Current Discharge Medication List Disposition: Discharge Follow-Up: GERARDO HOFFMAN MD I, Astrid Meeks, acting as a scribe, am personally taking down the notes in the presence of Jhon aCrrizales MD. Take no action on this note until reviewed and authenticated by the physician. Jhon Carrizales MD 05/22/215 ICE CREW LEADER * LINDA Keen - 05/22/2021 5:57 PM CST [place], [place] EMERGENCY DEPARTMENT ENCOUNTER Medical Screening Examination 05/22/21 5:57 PM Chief Complaint : Weakness HPI : Mohsen Marques is a 65-year-old female who has hx of has a past medical history of Arthritis, Back pain, Blood clot in vein, Breast cancer (CMS/HCC), Cancer (CMS/HCC), Diabetes mellitus (CMS/HCC), Disease of thyroid gland, DVT (deep venous thrombosis) (CMS/HCC), Hypertension, Kidney stones, Neuropathy, PE (pulmonary thromboembolism) (CMS/HCC), Restless leg syndrome, and Spinal headache. presents with generalized weakness x several days. Pt states she is having trouble ambulating and getting out of bed. Pt c/o polyuria as well. Pt denies specific pain other than body aches. No cough or fever. No cp or sob. Pt denies focal weakness. Vital Signs: Filed Vitals: 05/22/21 1754 BP: 122/78 Pulse: 101 Resp: 20 Temp: 97.2 ??F (36.2 ??C) TempSrc: Oral SpO2: 97% Weight: 128.8 kg (284 lb) Height: 5' 1 (1.549 m) Physical exam: A brief physical exam was completed to facilitate/expedite patient care. Mitchell findings include: Heart: RRR Lungs: CTA BL Plan: Labs & Imaging was ordered to facilitate patient care. LINDA Keen 05/22/21 1759 LINDA Keen 05/22/21 1800 Cosigned by Marlyn Stuart MD at 05/22/2021 6:05 PM SERVICE CREW LEADER ICE CREW LEADER ICE CREW LEADER ICE CREW LEADER * Lachelle Green RN - 05/22/2021 5:54 PM CST To triage via wheelchair c/o bodyaches, weakness x 2 days. Also reports intermittent numbness to both hands. Denies cough, runny nose, sorethroat. Pt also states memory has been foggy . ICE CREW LEADER documented in this encounter Plan of Treatment Not on file documented as of this encounter Procedures Procedure Name Priority Date/Time Associated Diagnosis Comments URINALYSIS WI REFLEX TO CULTURE STAT 05/22/2021 8:25 PM SERVICE CREW LEADER TROPONIN, QUANT STAT 05/22/2021 8:00 PM SERVICE CREW LEADER ECG 12-LEAD STAT 05/22/2021 6:44 PM SERVICE CREW LEADER XR CHEST PORTABLE STAT 05/22/2021 6:4 1 PM SERVICE CREW LEADER CORONAVIRUS (COVID-19) ANTIGEN STAT 05/22/2021 6:23 PM SERVICE CREW LEADER COMPREHENSIVE METABOLIC PANEL STAT 05/22/2021 6:23 PM SERVICE CREW LEADER CBC W/DIFF AUTOMATED STAT 05/22/2021 6:23 PM SERVICE CREW LEADER TROPONIN, QUANT STAT 05/22/2021 6:23 PM SERVICE CREW LEADER documented in this encounter Results * (ABNORMAL) URINALYSIS WI REFLEX TO CULTURE (05/22/2021 8:25 PM SERVICE CREW LEADER) SPECIMEN TYPE URINE CLEAN CATCH 05/22/2021 8:23 PM SERVICE CREW LEADER [facility] COLOR (U) LIGHT YELLOW 05/22/2021 9:02 PM [facility] TRANSPARENCY CLEAR 05/22/2021 9:02 PM [facility] SPECIFIC GRAVITY (U) 1.023 1.001 - 1.030 05/22/2021 9:02 PM [facility] U PH 6.0 5.0 - 9.0 05/22/2021 9:02 PM [facility] LEUKOCYTES (U) NEGATIVE NEGATIVE 05/22/2021 9:02 PM [facility] NITRITES NEGATIVE NEGATIVE 05/22/2021 9:02 PM [facility] PROTEIN (U) NEGATIVE <30 MG/DL 05/22/2021 9:02 PM [facility] URINE GLUCOSE NORMAL NORMAL MG/DL 05/22/2021 9:02 PM [facility] KETONES MG/DL (U) NEGATIVE NEGATIVE MG/DL 05/22/2021 9:02 PM [facility] UROBILINOGEN NORMAL NORMAL MG/DL 05/22/2021 9:02 PM [facility] BILIRUBIN (U) NEGATIVE NEGATIVE MG/DL 05/22/2021 9:02 PM [facility] BLOOD (U) TRACE(A) NEGATIVE 05/22/2021 9:02 PM [facility] CULTURE & SENSITIVITY INDICATED? CULTURE IS NOT INDICATED 05/22/2021 9:02 PM [facility] MUCUS RARE /LPF 05/22/2021 9:02 PM [facility] WBC/HPF 2 <6 /HPF 05/22/2021 9:02 PM [facility] RBC/HPF 6(H) <6 /HPF 05/22/2021 9:02 PM [facility] SQUAMOUS EPITHELIALS RARE /HPF 05/22/2021 9:02 PM SERVICE CREW LEADER [facility] URINE SPECIMEN OBTAINED BY CLEAN CATCH PROCEDURE / Unknown 05/22/2021 8:25 PM SERVICE CREW LEADER Tylor MCKEON URINE ORDERABLES Final Res ult Performing Organization Address [facility] de Phone Number [address] [address], * TROPONIN, QUANT (05/22/2021 8:00 PM SERVICE CREW LEADER) TROPONIN I HIGH SENSITIVITY 10 <54 ng/L 05/22/2021 8:39 PM SERVICE CREW LEADER [facility] Comment: HIGH DOSES OF BIOTIN, TROPONIN-SPECIFIC AUTOANTIBODIES, AND ANTIBODY THERAPY CONTAINING HAMA MAY INTERFERE WITH THIS TEST RESULT. CORRELATION TO CLINICAL HISTORY AND PRESENTATION RECOMMENDED. 05/22/2021 8:00 PM SERVICE CREW LEADER Tylor MCKEON LABORATORY Final Resu lt Performing Organization Address [facility] de Phone Number [facility] [address] [place] [address], * ECG 12 lead (05/22/2021 6:44 PM SERVICE CREW LEADER) 05/22/2021 6:44 PM SERVICE CREW LEADER Narrative [facility] - 05/23/2021 7:44 AM SERVICE CREW LEADER ?[facility] ? [address] [facility] ? Test Date: ?2021-05-22 Pat Name: ? MOHSEN MARQUES ?Department: ? Room: ? EXAM15 Gender: ? Female ? Company Manager: ?? SET : ?1955 ? Requested By: TYLOR GUIDO Order Number: [id number] ? Reading MD: ?? Santos Bowen ? Measurements Intervals ?Summers ? Rate: ? 93 ? P: ?35 CO: ? 130 ?QRS: ?-6 QRSD: ? 93 ? T: ?41 QT: ? 358 ? QTc: ?446 ? Interpretive Statements SINUS RHYTHM Compared to ECG 05/15/2021 14:52:08 No significant changes ICE CREW LEADER Procedure Note Santos Bowen MD - 05/23/[address]21 [facility] [address] Test Date: 2021-05-22 Pat Name: MOHSEN MARQUES Department: Room: EXAM15 Gender: Female Company Manager: SET : 1955 Requested By: TYLOR GUIDO Order Number: [id number] Reading MD: Santos Bowen Measurements Intervals Summers Rate: 93 P: 35 CO: 130 QRS: -6 QRSD: 93 T: 41 QT: 358 QTc: 446 Interpretive Statements SINUS RHYTHM Compared to ECG 05/15/2021 14:52:08 No significant changes ICE CREW LEADER us Tylor MCKEON ECG ORDERABLES Final Resu lt [facility] RAD * XR CHEST PORTABLE (05/22/2021 6:41 PM SERVICE CREW LEADER) Anatomical Region Laterality Modality Chest Radiographic Lizeth ging 05/22/2021 7:08 PM SERVICE CREW LEADER Impressions 05/22/2021 7:09 PM SERVICE CREW LEADER IMPRESSION: No acute cardiopulmonary process. Referred By: ?? Interpreted By: Tnia Ariza MD, 05/22/2021 7:08 PM Narrative 05/22/2021 7:09 PM SERVICE CREW LEADER EXAMINATION: CHEST X-RAY ONE VIEW EXAM TIME: 1835 hours. COMPARISON: 05/15/2021. HISTORY: Generalized weakness for several days. FINDINGS: A single portable AP view of the chest is submitted for evaluation. The heart is within normal limits in size. Pulmonary vascularity is within normal limits. Calcified granulomata. The lungs are well expanded without focal airspace consolidation. No pleural effusions. No pneumothorax. Procedure Note Prince Ariza MD - 05/22/2021 EXAMINATION: CHEST X-RAY ONE VIEW EXAM TIME: 1835 hours. COMPARISON: 05/15/2021. HISTORY: Generalized weakness for several days. FINDINGS: A single portable AP view of the chest is submitted for evaluation. Theheart is within normal limits in size. Pulmonary vascularity is withinnormal limits. Calcified granulomata. The lungs are well expanded withoutfocal airspace consolidation. No pleural effusions. No pneumothorax. IMPRESSION: No acute cardiopulmonary process. Referred By: Interpreted By: Tina Ariza MD, 05/22/2021 7:08 PM us Tylor MCKEON GENERAL IMAGING Final Resu lt * CORONAVIRUS (COVID-19) ANTIGEN [IN-HOUSE ROBERTO] (05/22/2021 6:23 PM SERVICE CREW LEADER) CORONAVIRUS ANTIGEN IA NEGATIVE NEGATIVE 05/22/2021 10:11 PM SERVICE CREW LEADER [facility] Comment: NEGATIVE RESULTS SHOULD BE TREATED PRESUMPTIVE AND CONFIRMED WITH A MOLECULAR ASSAY IF NECESSARY FOR PATIENT MANAGEMENT. NEGATIVE RESULTS DO NOT RULE OUT COVID 19 AND SHOULD NOT BE USED THE SOLE BASIS FOR TREATMENT OR PATIENT MANAGEMENT DECISIONS, INCLUDING INFECTION CONTROL DECISIONS. NEGATIVE RESULTS SHOULD BE CONSIDERED IN THE CONTEXT OF A PATIENT'S RECENT EXPOSURES, HISTORY AND THE PRESENCE OF CLINICAL SIGNS AND SYMPTOMS CONSISTENT WITH COVID 19. THIS TEST HAS BEEN AUTHORIZED BY THE FDA UNDER AN EMERGENCY USE AUTHORIZATION (EUA) FOR USE BY AUTHORIZED LABORATORIES. SPECIMEN TYPE NASAL 05/22/2021 6:23 PM SERVICE CREW LEADER [facility] FIRST TEST NO 05/22/2021 6:23 PM SERVICE CREW LEADER [facility] EMPLOYED IN HEALTHCARE NO 05/22/2021 6:23 PM SERVICE CREW LEADER [facility] SYMPTOMATIC DEFINED BY CDC YES 05/22/2021 6:23 PM SERVICE CREW LEADER [facility] DATE OF SYMPTOM ONSET 2021052005/22/2021 6:23 PM SERVICE CREW LEADER [facility] HOSPITALIZATION STATUS UNKNOWN 05/22/2021 6:23 PM SERVICE CREW LEADER [facility] RESIDENT OF [facility] NO 05/22/2021 6:23 PM SERVICE CREW LEADER [facility] Specimen from nose (specimen) NASAL STRUCTURE / Unknown 05/22/2021 6:23 PM SERVICE CREW LEADER Tylor MCKEON MICROBIOLOGY - GENERAL ORD ERABLES Final Result Performing Organization Address [facility]/ZIP Co de Phone Number [facility] [address] [place] [address], [place] [phone] * TROPONIN, QUANT (05/22/2021 6:23 PM SERVICE CREW LEADER) TROPONIN I HIGH SENSITIVITY 9 <54 ng/L 05/22/2021 7:12 PM SERVICE CREW LEADER [facility] Comment: HIGH DOSES OF BIOTIN, TROPONIN-SPECIFIC AUTOANTIBODIES, AND ANTIBODY THERAPY CONTAINING HAMA MAY INTERFERE WITH THIS TEST RESULT. CORRELATION TO CLINICAL HISTORY AND PRESENTATION RECOMMENDED. 05/22/2021 6:23 PM SERVICE CREW LEADER Tylor MCKEON LABORATORY Final Resu lt Performing Organization Address City/[facility]/ZIP Co de Phone Number [facility] [address] [place] [address], [place] [phone] * (ABNORMAL) COMPREHENSIVE METABOLIC PANEL (05/22/2021 6:23 PM SERVICE CREW LEADER) GLUCOSE 137(H) 70 - 99 MG/DL 05/22/2021 7:12 PM SERVICE CREW LEADER [facility] BUN 20(H) 7 - 18 MG/DL 05/22/2021 7:12 PM [facility] CREATININE S/P/B 0.94 0.55 - 1.02 MG/DL 05/22/2021 7:12 PM [facility] SODIUM S/P/B 138 136 - 145 MMOL/L 05/22/2021 7:12 PM [facility] POTASSIUM S/P/B 4.4 3.5 - 5.1 MMOL/L 05/22/2021 7:12 PM [facility] Comment:SLIGHT HEMOLYSIS, RE SULT MAY BE AFFECTED. CHLORIDE S/P/B 103 100 - 108 MMOL/L 05/22/2021 7:12 PM [facility] CO2 31.4 21 - 32 MMOL/L 05/22/2021 7:12 PM [facility] CALCIUM S/P/B 9.8 8.5 - 10.1 MG/DL 05/22/2021 7:12 PM [facility] BILIRUBIN TOTAL S/P/B 0.4 0.2 - 1.2 MG/DL 05/22/2021 7:12 PM [facility] Comment: THIS ASSAY IS NOT RECOMMENDED FOR PATIENTS UNDERGOING TREATMENT WITH ELTROMBOPAG DUE TO THE POTENTIAL FOR FALSELY ELEVATED RESULTS. TOTAL PROTEIN S/P/B 8.6(H) 6.4 - 8.2 G/DL 05/22/2021 7:12 PM [facility] ALBUMIN S/P/B 3.3(L) 3.4 - 5.0 G/DL 05/22/2021 7:12 PM [facility] AST 30 15 - 37 U/L 05/22/2021 7:12 PM [facility] Comment:SLIGHT HEMOLYSIS, RE SULT MAY BE AFFECTED. ALT 25 14 - 55 U/L 05/22/2021 7:12 PM SERVICE CREW LEADER [facility] ALKALINE PHOSPHATASE S/P/B 78 50 - 136 U/L 05/22/2021 7:12 PM SERVICE CREW LEADER [facility] ANION GAP 3.6(L) 5 - 15 MMOL/L 05/22/2021 7:12 PM SERVICE CREW LEADER [facility] BUN CREATININE RATIO 21.2 6 - 26 05/22/2021 7:12 PM [facility] A/G RATIO 0.6(L) 1.0 - 2.0 RATIO 05/22/2021 7:12 PM [facility] EGFR NON-AFR. AMER. 64(L) >90 ML/MIN/1.7 3 M2 05/22/2021 7:12 PM [facility] EGFR AFR. AMER. 74(L) >90 ML/MIN/1.7 3 M2 05/22/2021 7:12 PM [facility] Comment: NOTE: eGFR is not calculated for patients <18 years of age. This is an estimated GFR (CKD EPI) and should not be used for calculating drug doses. 05/22/2021 6:23 PM SERVICE CREW LEADER us Tylor MCKEON LABORATORY Final Resu lt [facility] [address] [place] [address], [place] [phone] * (ABNORMAL) CBC W/DIFF AUTOMATED (05/22/2021 6:23 PM SERVICE CREW LEADER) WBC 11.1(H) 4.5 - 11.0 x10'3/uL 05/22/2021 6:36 PM SERVICE CREW LEADER [facility] RBC 4.78 4.20 - 5.40 x10'6/uL 05/22/2021 6:36 PM [facility] HGB 13.7 12.0 - 16.0 G/DL 05/22/2021 6:36 PM [facility] HCT 44.0 38.0 - 48.0 % 05/22/2021 6:36 PM [facility] MCV 92.1 81.0 - 99.0 FL 05/22/2021 6:36 PM [facility] MCH 28.7 27.0 - 31.0 PG 05/22/2021 6:36 PM [facility] MCHC 31.1(L) 32.0 - 36.0 G/DL 05/22/2021 6:36 PM [facility] RDW 14.0 11.5 - 14.5 % 05/22/2021 6:36 PM [facility] PLT 317 130 - 400 x10'3/uL 05/22/2021 6:36 PM [facility] MPV 9.7 9.3 - 12.2 FL 05/22/2021 6:36 PM [facility] DIFFERENTIAL TYPE AUTOMATED DIFFERENTIAL 05/22/2021 6:36 PM [facility] NEUTROPHILS % 56.5 % 05/22/2021 6:36 PM [facility] LYMPHOCYTES % 29.8 % 05/22/2021 6:36 PM [facility] MONOCYTES % 9.6 % 05/22/2021 6:36 PM [facility] EOSINOPHILS 3.2 % 05/22/2021 6:36 PM [facility] BASOPHILS 0.5 % 05/22/2021 6:36 PM [facility] IMMATURE GRANS % 0.4 % 05/22/19 6:36 PM [facility] ABS. NEUTROPHILS TOTAL 6.26 1.80 - 7.70 x10'3/uL 05/22/2021 6:36 PM SERVICE CREW LEADER [facility] ABS. LYMPHOCYTES 3.30 1.00 - 4.80 x10'3/uL 05/22/2021 6:36 PM SERVICE CREW LEADER [facility] ABS. MONOCYTES 1.06(H) 0.24 - 0.86 x10'3/uL 05/22/2021 6:36 PM SERVICE CREW LEADER [facility] ABS. EOSINOPHILS 0.35 0.04 - 0.36 x10'3/uL 05/22/2021 6:36 PM SERVICE CREW LEADER [facility] ABS. BASOPHILS 0.05 0.01 - 0.08 x10'3/uL 05/22/2021 6:36 PM SERVICE CREW LEADER [facility] ABS. IMMATURE GRANULOCYTES 0.04 0.00 - 0.49 x10'3/uL 05/22/2021 6:36 PM SERVICE CREW LEADER [facility] 05/22/2021 6:23 PM SERVICE CREW LEADER [facility] Final Resu lt [facility] [address] [place] [address], documented in this encounter Visit Diagnoses Diagnosis Weakness- Primary Other malaise and fatigue documented in this encounter Administered Medications Inactive Administered Medications - up to 3 most recent administrations Medication Order MAR Action Action Date Dose Rate Site acetaminophen (TYLENOL) tablet 650 mg 650 mg, Oral, Once, 1 dose, On 05/22/21 at 2000, Maximum dose of acetaminophen is 4000 mg from all sources in 24 hours. Given 05/22/2021 7:55 PM SERVICE CREW LEADER 650 mg sodium chloride 0.9% bolus infusion SOLN 500 mL 500 mL, Intravenous, Administer over 15 Minutes, Bolus (Once), 1 dose, On 05/22/21 at 1800 New Bag 05/22/2021 6:41 PM SERVICE CREW LEADER 500 mLs sodium chloride 0.9% bolus infusion SOLN 500 mL 500 mL, Intravenous, Administer over 15 Minutes, Bolus (Once), 1 dose, On 05/22/21 at 2130 New Bag 05/22/2021 9:45 PM SERVICE CREW LEADER 500 mLs documented in this encounter Active and Recently Administered Medications Times are shown in SERVICE CREW LEADER. Scheduled Medication Order 05/20/2021 05/21/2021 05/22/2021 acetaminophen (TYLENOL) tablet 650 mg (COMPLETED) 650 mg, Oral, Once, 1 dose, On 05/22/21 at 2000, Maximum dose of acetaminophen is 4000 mg from all sources in 24 hours. 1954 (Given - Provid er: Kiesha Ceron RN) sodium chloride 0.9% bolus infusion SOLN 500 mL (COMPLETED) 500 mL, Intravenous, Administer over 15 Minutes, Bolus (Once), 1 dose, On 05/22/21 at 1800 1841 (New Bag - Prov ider: Yesi Goel RN)1958 (Infusion Stop Time - Provider: Kiesha Ceron RN) sodium chloride 0.9% bolus infusion SOLN 500 mL (COMPLETED) 500 mL, Intravenous, Administer over 15 Minutes, Bolus (Once), 1 dose, On 05/22/21 at 2130 2145 (New Bag - Prov ider: Kiesha Ceron RN)2222 (Infusion Stop Time - Provider: Kiesha Ceron RN) documented in this encounter Additional Health Concerns Infection Onset Date Last Indicated Resolved Time COVID-19 Rule Out 05/22/2021 05/22/2021 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 [place] [address] PCP - General FAMILY PRACTICE 08/20/17 Meena Bansal MD [facility] [address] [place] [address] Trevett Supervisor Car Installations CARDIOVASCULAR DISEASE 04/24/16 documented as of this encounter
--- OUTSIDE RECORDS SUMMARY | 2024-04-26 02:40 | XMS_ITS | Encounter Summary ---
Author Organization [facility] Address [address] [place] [address]. 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 No / Unsure 12/01/2020 9:36 AM CDT documented as of this encounter [...] on filedocumented in this encounter Care Teams Cottonseed Meat Presser Relationship Specialty Start Date End Date Justen Gale MD [facility]. [address] [address] PCP - General FAMILY PRACTICE 08/20/17 Meena Bansal MD [facility]. [facility] [address] [place] [address] [facility] CARDIOVASCULAR DISEASE 04/24/16 documented as of this encounter
--- OUTSIDE RECORDS SUMMARY | 2024-04-26 02:40 | XMS_ITS | Encounter Summary ---
Author Organization [facility] Address [address] [place] [address]. 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 [address] [place] [address] PCP - General FAMILY PRACTICE 08/20/17 Meena Bansal MD [facility]. [address] [place] [address] José Luis Merchant Tailor CARDIOVASCULAR DISEASE 04/24/16 documented as of this encounter
--- OUTSIDE RECORDS SUMMARY | 2024-04-26 02:40 | XMS_ITS | Encounter Summary ---
Author Organization [facility] Address [address] [place] [address]. [place] [address] [place] [address] Care Team Providers Care Model Making Supervisor Name Role Phone Meena Bansal MD Unavailable [phone] Justen Gale MD Primary Care Provider [phone] Reason for Referral * Imaging (Urgent) - Closed Specialty Diagnoses / Procedures Referred By Elyssa t Referred To Contact RADIOLOGY Procedures CTA CHEST Cris De Dios PA [address] [place] [id number] Phone: tel: fax: Referral ID Status Reason Start Date Expiration Date Visits Re quested Visits Authorized [id number] Closed 01/06/2021 02/05/2022 1 1 Reason for Visit * Reason Comments Shortness Of Breath Tremors Encounter Details Date Type Department Care Team (Late st Contact Info) Description 01/06/2021 5:34 PM CDT - 01/06/2021 9:10 PM CDT Emergency [facility] [place] [address] Shorty Alvarado MD [address] [address] Shortness Of Breath ; Tremors Discharge Disposition: Home or Self Care (Routine [...] Sexual Orientation Straight 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 No / Unsure 01/06/2021 3:46 PM CDT documented as of this encounter Last Filed Vital Signs Vital Sign Reading Time Taken Comments Blood Pressure 92/62 01/06/2021 9:00 PM CDT Pulse 88 01/06/2021 9:00 PM CDT Temperature 37.9 ??C (100.2 ??F) 01/06/2021 6:20 PM C DT Respiratory Rate 19 01/06/2021 9:00 PM CDT Oxygen Saturation 96% 01/06/2021 9:00 PM CDT Inhaled Oxygen Concentration - - Weight 127 kg (280 lb) 01/06/2021 3:53 PM CDT Height 154.9 cm (5' 1 ) 01/06/2021 3:53 PM CDT Body Mass Index 52.91 01/06/2021 3:53 PM CDT documented in this encounter Functional [...] cannot be sent through Care Everywhere. * Adverse Drug Reactions Discharge Instructions, Adult (Spanish) documented in this encounter Medications [...] take with meals). 30 tablet 1 04/19/20 lisinopril 20 MG tablet Take 20 mg by mouth daily. 10/13/19 mirabegron ER (MYRBETRIQ) 25 MG 24 hr [...] by mouth 2 (two) times daily. 10/13/19 documented as of this encounter ED Notes * Shorty Alvarado MD - 01/06/2021 7:04 PM CDT Chief Complaint Chief Complaint Patient presents with ??? Shortness Of Breath ??? Tremors History of Present Illness This patient is a 65yo female with PMH HTN, DM, DVT on xarelto who presents to the ED for evaluation of dyspnea. The patient noted abrupt onset of dyspnea last night while resting. She has also notedintermittent chills, headache, and nausea. The patient received a zometa injection for the first time yesterday and believes this may be the etiology of her symptoms. She is vaccinated against COVID and has had no known exposure. Medical History ALLERGIES: Allergies Allergen Reactions ??? [...] 8 (eight) hours asneeded for Nausea. 01/06/21 Yes Shorty Alvarado MD amitriptyline 25 MG tablet Take 25 [...] needed for Nausea. 09/21/20 Jaswinder Gaytan MD oxybutynin 5 MG tablet [...] Types: Cigarettes Quit date: 03/23/1977 Years since quittin.8 ??? Smokeless tobacco: Never Used Substance Use Topics ??? Alcohol use: No ??? Drug use: No Review of Systems Review of Systems Constitutional: Positive for chills and fatigue. Negative for fever. HENT: Negative. Respiratory: Positive for shortness of breath. Negative for cough. Cardiovascular: Positive for chest pain (Mid-sternal, sharp pain). Gastrointestinal: Positive for nausea. Negative for abdominal pain, blood in stool, diarrhea and vomiting. Genitourinary: Negative. Musculoskeletal: Negative. Skin: Negative. Neurological: Positive for headaches. Negative for dizziness, syncope, facial asymmetry, speech difficulty, weakness, light-headedness and numbness. All other systems reviewed and are negative. Physical Exam Filed Vitals: 01/06/21 1553 01/06/21 1820 01/06/21 1900 01/06/21 2100 BP: (!) 155/83 122/73 92/62 Pulse: 104 99 95 88 Resp: Temp: 98.2 ??F (36.8 ??C) 100.2 ??F (37.9 ??C) TempSrc: Temporal Oral SpO2: 100% 97% 95% 96% Weight: 127 kg (280 lb) Height: 5' 1 (1.549 m) Physical Exam Vitals and nursing note reviewed. Constitutional: Appearance: She is well-developed. Comments: Nontoxic but slightly anxious, with rigors. HENT: Head: Normocephalic and atraumatic. Nose: Nose [...] I have interpreted the patient's EKG timed 18:05 as NSR at rate of [address]/T changes. No significant change compared with previous. I have interpreted the patient's EKG timed 18:53 as NSR at rate of [address]/T changes. No significant change compared with previous. Results for orders placed or performed during the hospital encounter of 01/06/21 ECG 12-Lead Narrative 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 [address] Test Date: 2021-01-06 Pat Name: MOHSEN MARQUES Department: Room: 3 Gender: Female Plate Slitter And Inspector: AW : 1955 Requested By: CRIS DE DIOS Order Number: [id number] Reading MD: Noe Cowan Measurements Intervals [place] Rate: 93 P: 50 VA: 126 QRS: 0 QRSD: 92 T: 29 QT: 340 QTc: 424 Interpretive Statements SINUS RHYTHM Compared to ECG 01/06/2021 18:05:44 No significant changes Preliminary EKG interpretation by ED Physician No ischemic changes Sen Alvarado M.D. CRITICAL ALERT ISSUED ON 01-06-2021 19:03:32 LABORATORY STUDIES: Results for orders placed or performed during the hospital encounter of 01/06/21 CBC W/DIFF AUTOMATED Result Value Ref Range WBC 11.6 (H) 4.5 - 11.0 x10'3/uL RBC 4.88 4.20 - 5.40 x10'6/uL HGB 14.1 12.0 - 16.0 G/DL HCT 45.1 38.0 - 48.0 % MCV 92.4 81.0 - 99.0 FL MCH 28.9 27.0 - 31.0 PG MCHC 31.3 (L) 32.0 - 36.0 G/DL RDW 14.0 11.5 - 14.5 % PLT 301 130 - 400 x10'3/uL MPV 9.8 9.3 - 12.2 FL DIFFERENTIAL TYPE AUTOMATED DIFFERENTIAL NEUTROPHILS 81.4 % LYMPHOCYTES 11.5 % MONOCYTES 5.3 % EOSINOPHILS 1.2 % BASOPHILS 0.3 % IMMATURE GRANS 0.3 % ABS. NEUTROPHILS TOTAL 9.44 (H) 1.80 - 7.70 x10'3/uL ABS. LYMPHOCYTES 1.33 1.00 - 4.80 x10'3/uL ABS. MONOCYTES 0.61 0.24 - 0.86 x10'3/uL ABS. EOSINOPHILS 0.14 0.04 - 0.36 x10'3/uL ABS. BASOPHILS 0.03 0.01 - 0.08 x10'3/uL ABS. IMMATURE GRANULOCYTES 0.04 0.00 - 0.49 x10'3/uL LACTIC ACID Result Value Ref Range LACTIC ACID 0.7 0.4 - 2.0 MMOL/L COMPREHENSIVE METABOLIC PANEL Result Value Ref Range GLUCOSE 111 (H) 70 - 99 MG/DL BUN 14 7 - 18 MG/DL CREATININE S/P/B 0.86 0.55 - 1.02 MG/DL SODIUM 136 136 - 145 MMOL/L POTASSIUM 4.7 3.5 - 5.1 MMOL/L CHLORIDE S/P/B 103 100 - 108 MMOL/L CO2 27.3 21 - 32 MMOL/L CALCIUM 9.7 8.5 - 10.1 MG/DL BILIRUBIN TOTAL S/P/B 0.6 0.2 - 1.2 MG/DL TOTAL PROTEIN S/P/B 8.7 (H) 6.4 - 8.2 G/DL ALBUMIN S/P/B 3.2 (L) 3.4 - 5.0 G/DL AST 21 15 - 37 U/L ALT 28 14 - 55 U/L ALKALINE PHOSPHATASE S/P/B 97 50 - 136 U/L ANION GAP 5.7 5 - 15 MMOL/L BUN CREATININE RATIO 16.3 6 - 26 A/G RATIO 0.6 (L) 1.0 - 2.0 RATIO eGFR Non-Afr. Amer. 71 (L) >90 ML/MIN/1.73 M2 eGFR Afr. Amer. 83 (L) >90 ML/MIN/1.73 M2 URINALYSIS Result Value Ref Range Specimen Type URINE CLEAN CATCH COLOR (U) LIGHT YELLOW TRANSPARENCY CLEAR Specific Mora (U) 1.021 1.001 - 1.030 U PH 5.5 5.0 - 9.0 LEUKOCYTE ESTERASE NEGATIVE NEGATIVE NITRITES NEGATIVE NEGATIVE PROTEIN (U) NEGATIVE <30 MG/DL URINE GLUCOSE NORMAL NORMAL MG/DL U KETONES NEGATIVE NEGATIVE MG/DL UROBILINOGEN NORMAL NORMAL MG/DL BILIRUBIN (U) NEGATIVE NEGATIVE MG/DL BLOOD 1+ (A) NEGATIVE CULTURE & SENSITIVITY INDICATED? CULTURE IS NOT INDICATED Transitional Epi RARE /HPF MUCUS RARE /LPF WBC/HPF 3 <6 /HPF RBC/HPF 6 (H) <6 /HPF SQUAMOUS EPITHELIALS RARE /HPF PROTIME/INR, VENOUS Result Value Ref Range Protime 20.1 (H) 10.2 - 12.9 SEC INR 1.7 PARTIAL THROMBOPLASTIN TIME,PTT Result Value Ref Range PTT 33.8 25.1 - 36.5 SEC MAGNESIUM Result Value Ref Range MAGNESIUM 1.9 1.8 - 2.4 MG/DL TROPONIN, QUANT Result Value Ref Range TROPONIN I HIGH SENSITIVITY 10 <54 ng/L TROPONIN, QUANT Result Value Ref Range TROPONIN I HIGH SENSITIVITY 11 <54 ng/L PRO-BRAIN NATRIURETIC PEPTIDE Result Value Ref Range Pro-B TYPE NATRIURETIC PEPTIDE 64 <125 PG/ML IMAGING STUDIES CTA CHEST Final Result by User, [id number] (01/07 1940) PROCEDURE: CTA CHEST. HISTORY: Evaluate for pulmonary embolism. Fatigue and weakness. TECHNIQUE: Contrast enhanced helical CT pulmonary angiography was then performed. Routine transaxial and post-processed (sagittal and coronal MPR) reformations of the acquired data sets were obtained. Standard 3-D (MIP) reformations of the acquired data sets were also obtained. A dose lowering technique was used for this procedure, which may include, but is not limited to, dose reduction technique, automated exposure control, the use of iterative reconstruction, and ALARA (As Low As Reasonably Achievable) / Image Gently techniques. COMPARISON: AP chest radiograph, 01/06/2021. CT angiogram chest, 07/23/2020. PULMONARY CTA FINDINGS: This is a diagnostic quality helical CT pulmonary angiogram. There is no acute pulmonary embolism to the distal segmental pulmonary artery level. OTHER FINDINGS: Support Devices: None. Heart/Pericardium/Great Vessels: Cardiac size is normal. There are mitral annular calcifications. Calcific coronary artery atherosclerosis cannot be accurately evaluated on this contrast-enhanced exam. There is no pericardial effusion. There is mild thoracic aortic and branch vessel atherosclerosis, portions calcific. The main pulmonary artery is normal in diameter. The mid ascending thoracic aorta measures up to 3.4 cm. Pleural Spaces: The pleural spaces are clear. Mediastinum/Korin: There is no hilar lymph node enlargement. There is stable enlarged 11 mm anterior/prevascular mediastinal lymph node (series 6, image 64). Neck Base/Chest Wall/Diaphragm/Upper Abdomen: Stable nonspecific coarse calcifications involving the thyroid gland.. There is no supraclavicular or axillary lymph node enlargement. Status post cholecystectomy. Limited imaging through the upper abdomen is within normal limits. Multilevel degenerative change is present in the spine with anterior osteophytes and intervertebral disc disease. Lungs/Central Airways: The trachea and central airways are patent and normal in caliber. There is bilateral dependent atelectasis. There multiple solid pulmonary nodules within the medial right lower lobe measuring up to 5 mm (series 5, image 114). A calcified granuloma within the peripheral right upper lobe is present. IMPRESSION: 1. There is no acute pulmonary embolism to the distal segmental pulmonary artery level. 2. Stable left lower lobe pulmonary nodules measuring up to 5 mm. Continued attention on follow-up is recommended. 3. Stable 11 mm prevascular/anterior mediastinal lymph node. Referred By: CRIS DE DIOS Interpreted By: Mayda Zelaya MD, 01/06/2021 7:30 PM XR CHEST PORTABLE Final Result by User, [id number] (01/06 170) Examination: Chest x-ray 1 view Exam date/time: 01/06/2021 4:13 PM Reason For Exam: sob Comparison: Prior radiographs performed June 2020 Technique: Upright AP view of the chest demonstrated. Findings: The heart size is within normal limits. Mediastinum unremarkable. There is peribronchial cuffing with limited inspiration. The findings may represent congestive changes. In the lung periphery no focal infiltrates. No effusion. Osseous structures are intact. =====IMPRESSION:===== Somewhat Limited inspiration with thickening of the bronchi and perhaps mild peribronchial cuffing. Mild congestion cannot be excluded. In the lung periphery no focal infiltrates. Referred By: CRIS DE DIOS Interpreted By: Genaro Sosa MD, 01/06/2021 5:03 PM ED Course / Medical Decision Making The patient rested more comfortably following symptomatic treatment. Diagnostic studies are unremarkable. In review of zometa literature, it appears that these symptoms are not uncommon side effects.Hence, I suspect that she is correct in her assumption. We will plan for discharge home with symptomatic treatment. Clinical Impression [id number] adverse reaction to medication, initial encounter (Primary) Disposition: Discharge Shorty Alvarado MD 01/07/21 0814 * Marvin Rendon RN - 01/06/2021 3:58 PM CDT Patient ambulatory to ED with report of shortness of breath with new onset tremors and nausea beginning last night after receiving first infusion dose of Zometa. Patient reports lying down last nightand feeling like she could not catch her breath. Patient has history of Pes for which she takes Xarelto. * LINDA Barbour - 01/06/2021 3:53 PM CDT [place], [place] EMERGENCY DEPARTMENT ENCOUNTER Medical Screening Examination 01/06/21 3:53 PM Chief Complaint : No chief complaint on file. HPI : Mohsen Marques is a 65-year-old female who presents tremors and sob. Was off xaralto for afew days back on it. Feels shaky and weak. Vital Signs: There were no vitals filed for this visit. Physical exam: A brief physical exam was completed to facilitate/expedite patient care.lungs ctab Plan: Necessary labs/imaging/medications ordered to initiate pt care. LINDA Barbour 01/06/21 1558 Cosigned by Shorty Alvarado MD at 01/07/2021 7:54 AM CDT documented in this encounter Plan of Treatment Not on file documented as of this encounter Procedures Procedure Name Priority Date/Time Associated Diagnosis Comments CTA CHEST STAT 01/06/2021 7:16 PM CDT TROPONIN, QUANT STAT 01/06/2021 6:57 PM CDT ECG 12-LEAD STAT 01/06/2021 6:53 PM CDT HC URINALYSIS AUTO W/O MICRO STAT 01/06/2021 6:29 PM CDT URINE BACTERIA CULTURE STAT 6:29 PM CDT ECG 12-LEAD STAT 01/06/2021 6:05 PM CDT LACTIC ACID TIMED 01/06/2021 5:52 PM CDT XR CHEST PORTABLE STAT 01/06/2021 4:3 9 PM CDT PRO-BRAIN NATRIURETIC PEPTIDE STAT 01/06/2021 4:01 PM CDT PARTIAL THROMBOPLASTIN TIME,PTT STAT 01/06/2021 4:01 PM CDT PROTHROMBIN TIME, VENOUS STAT 01/06/2021 4:01 PM CDT COMPREHENSIVE METABOLIC PANEL STAT 01/06/2021 4:01 PM CDT CULTURE, BACTERIA, BLOOD STAT 01/06/2021 4:01 PM CDT CULTURE, BACTERIA, BLOOD STAT 01/06/2021 4:01 PM CDT CBC W/DIFF AUTOMATED STAT 01/06/2021 4:01 PM CDT TROPONIN, QUANT STAT 01/06/2021 4:01 PM CDT MAGNESIUM STAT 01/06/2021 4:01 PM CDT documented in this encounter Results * CTA CHEST (01/06/2021 7:16 PM CDT) Anatomical Region Laterality Modality Chest Computed Tomogra phy 01/06/2021 7:30 PM CDT Impressions 01/06/2021 7:39 PM CDT IMPRESSION: 1. ??There is no acute pulmonary embolism to the distal segmental pulmonary artery level. 2. ??Stable left lower lobe pulmonary nodules measuring up to 5 mm. Continued attention on follow-up is recommended. 3. ??Stable 11 mm prevascular/anterior mediastinal lymph node. Referred By: CRIS DE DIOS Interpreted By: Mayda Zelaya MD, 01/06/2021 7:30 PM Narrative 01/06/2021 7:39 PM CDT PROCEDURE: ??CTA CHEST. HISTORY: ??Evaluate for pulmonary embolism. ??Fatigue and weakness. TECHNIQUE: ??Contrast enhanced helical CT pulmonary angiography was then performed. ??Routine transaxial and post-processed (sagittal and coronal MPR) reformations of the acquired data sets were obtained. ??Standard 3-D (MIP) reformations of the acquired data sets were also obtained. ?? A dose lowering technique was used for this procedure, which may include, but is not limited to, dose reduction technique, automated exposure control, the use of iterative reconstruction, and ALARA (As Low As Reasonably Achievable) / Image Gently techniques. COMPARISON: ??AP chest radiograph, 01/06/2021. CT angiogram chest, 07/23/2020. PULMONARY CTA FINDINGS: ??This is a diagnostic quality helical CT pulmonary angiogram. ??There is no acute pulmonary embolism to the distal segmental pulmonary artery level. OTHER FINDINGS: ?? Support Devices: ??None. Heart/Pericardium/Great Vessels: ? Cardiac size is normal. There are mitral annular calcifications. ? Calcific coronary artery atherosclerosis cannot be accurately evaluated on this contrast-enhanced exam. ? There is no pericardial effusion. ? There is mild thoracic aortic and branch vessel atherosclerosis, portions calcific. ? The main pulmonary artery is normal in diameter. The mid ascending thoracic aorta measures up to 3.4 cm. Pleural Spaces: ??The pleural spaces are clear. Mediastinum/Korin: ??There is no hilar lymph node enlargement. There is stable enlarged 11 mm anterior/prevascular mediastinal lymph node (series 6, image 64). Neck Base/Chest Wall/Diaphragm/Upper Abdomen: ??Stable nonspecific coarse calcifications involving the thyroid gland.. There is no supraclavicular or axillary lymph node enlargement. Status post cholecystectomy. Limited imaging through the upper abdomen is within normal limits. ?? Multilevel degenerative change is present in the spine with anterior osteophytes and intervertebral disc disease. Lungs/Central Airways: ??The trachea and central airways are patent and normal in caliber. There is bilateral dependent atelectasis. There multiple solid pulmonary nodules within the medial right lower lobe measuring up to 5 mm (series 5, image 114). A calcified granuloma within the peripheral right upper lobe is present. Procedure Note Mayda Zelaya MD - 01/06/2021 PROCEDURE: CTA CHEST. HISTORY: Evaluate for pulmonary embolism. Fatigue and weakness. TECHNIQUE: Contrast enhanced helical CT pulmonary angiography was thenperformed. Routine transaxial and post-processed (sagittal and coronalMPR) reformations of the acquired data sets were obtained. Standard 3-D(MIP) reformations of the acquired data sets were also obtained. A dose lowering technique was used for this procedure, which may include,but is not limited to, dose reduction technique, automated exposurecontrol, the use of iterative reconstruction, and ALARA (As Low AsReasonably Achievable) / Image Gently techniques. COMPARISON: AP chest radiograph, 01/06/2021. CT angiogram chest,07/23/2020. PULMONARY CTA FINDINGS: This is a diagnostic quality helical CT pulmonaryangiogram. There is no acute pulmonary embolism to the distal segmentalpulmonary artery level. OTHER FINDINGS: Support Devices: None. Heart/Pericardium/Great Vessels: Cardiac size is normal. There are mitral annular calcifications. Calcific coronary artery atherosclerosis cannot be accuratelyevaluated on this contrast-enhanced exam. There is no pericardial effusion. There is mild thoracic aortic and branch vessel atherosclerosis,portions calcific. The main pulmonary artery is normal in diameter. The mid ascendingthoracic aorta measures up to 3.4 cm. Pleural Spaces: The pleural spaces are clear. Mediastinum/Korin: There is no hilar lymph node enlargement. There isstable enlarged 11 mm anterior/prevascular mediastinal lymph node (series6, image 64). Neck Base/Chest Wall/Diaphragm/Upper Abdomen: Stable nonspecific coarsecalcifications involving the thyroid gland.. There is no supraclavicularor axillary lymph node enlargement. Status post cholecystectomy. Limitedimaging through the upper abdomen is within normal limits. Multilevel degenerative change is present in the spine with anteriorosteophytes and intervertebral disc disease. Lungs/Central Airways: The trachea and central airways are patent andnormal in caliber. There is bilateral dependent atelectasis. Theremultiple solid pulmonary nodules within the medial right lower lobemeasuring up to 5 mm (series 5, image 114). A calcified granuloma withinthe peripheral right upper lobe is present. IMPRESSION: 1. There is no acute pulmonary embolism to the distal segmental pulmonaryartery level. 2. Stable left lower lobe pulmonary nodules measuring up to 5 mm.Continued attention on follow-up is recommended. 3. Stable 11 mm prevascular/anterior mediastinal lymph node. Referred By: CRIS DE DIOS Interpreted By: Mayda Zelaya MD, 01/06/2021 7:[address] Final Result * TROPONIN, QUANT (01/06/2021 6:57 PM CDT) TROPONIN I HIGH SENSITIVITY 11 <54 ng/L 01/06/2021 7:45 PM CDT [facility] Comment: HIGH DOSES OF BIOTIN, TROPONIN-SPECIFIC AUTOANTIBODIES, AND ANTIBODY THERAPY CONTAINING HAMA MAY INTERFERE WITH THIS TEST RESULT. CORRELATION TO CLINICAL HISTORY AND PRESENTATION RECOMMENDED. 01/06/2021 6:57 PM CDT [facility] Final Result [facility] [address] [place] [address], [place] [phone] * ECG 12 lead (01/06/2021 6:53 PM CDT) 01/06/2021 6:53 PM CDT Narrative [facility] - 01/06/2021 8:05 PM CDT ?[facility] ? [address], [place] ? Test Date: ?2021-01-06 Pat Name: ? MOHSEN MARQUES ?Department: ? Room: ? 3 Gender: ? Female ? 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 AW : ?1955 ? Requested By: CRIS YOUNG Order Number: [id number] ? Reading MD: ?? Noe Scally ? Measurements Intervals ?[place] ? Rate: ? 93 ? P: ?50 VA: ? 126 ?QRS: ?0 QRSD: ? 92 ? T: ?29 QT: ? 340 ? QTc: ?424 ? Interpretive Statements SINUS RHYTHM Compared to ECG 01/06/2021 18:05:44 No significant changes Preliminary EKG interpretation by ED Physician No ischemic changes Sen Alvarado M.D. CRITICAL ALERT ISSUED ON 01-06-2021 19:03:32 Procedure Note Noe Cowan MD - 01/06/[address] [facility] [facility] Test Date: 2021-01-06 Pat Name: MOHSEN MARQUES Department: Room: 3 Gender: Female Plate Slitter And Inspector: [place] : 1955 Requested By: CRIS DE DIOS Order Number: [id number] Reading MD: Noe Cowan Measurements Intervals [place] Rate: 93 P: 50 VA: 126 QRS: 0 QRSD: 92 T: 29 QT: 340 QTc: 424 Interpretive Statements SINUS RHYTHM Compared to ECG 01/06/2021 18:05:44 No significant changes Preliminary EKG interpretation by ED Physician No ischemic changes Sen Alvarado M.D. CRITICAL ALERT ISSUED ON 01-06-2021 19:03:32 us [facility] ECG ORDERABLES Final Result [facility] * CULTURE URINE (01/06/2021 6:29 PM CDT) SPEC DESCRIPTION URINE CLEAN CATCH 01/06/2021 6:25 PM CDT [facility] SPECIAL REQUESTS NO SPECIAL REQUEST 01/06/2021 6:25 PM CDT [facility] CULTURE RESULT NO GROWTH 2 DAYS 01/09/2021 10:36 AM CDT [facility] URINE SPECIMEN OBTAINED BY CLEAN CATCH PROCEDURE / Unknown 01/06/2021 6:29 PM CDT 01/06/2021 6:35 PM CDT us [facility] MICROBIOLOGY - GENERAL ORDER [place] Final Result [facility] [address] [place] [address], [place] [phone] * (ABNORMAL) URINALYSIS (01/06/2021 6:29 PM CDT) SPECIMEN TYPE URINE CLEAN CATCH 01/06/2021 6:25 PM CDT [facility] COLOR (U) LIGHT YELLOW 01/06/2021 6:45 PM CDT [facility] TRANSPARENCY CLEAR 01/06/2021 6:45 PM CDT [facility] SPECIFIC GRAVITY (U) 1.021 1.001 - 1.030 01/06/2021 6:45 PM CDT [facility] U PH 5.5 5.0 - 9.0 01/06/2021 6:45 PM CDT [facility] LEUKOCYTES (U) NEGATIVE NEGATIVE 01/06/2021 6:45 PM CDT [facility] NITRITES NEGATIVE NEGATIVE 01/06/2021 6:45 PM CDT [facility] PROTEIN (U) NEGATIVE <30 MG/DL 01/06/2021 6:45 PM CDT [facility] URINE GLUCOSE NORMAL NORMAL MG/DL 01/06/2021 6:45 PM CDT [facility] KETONES MG/DL (U) NEGATIVE NEGATIVE MG/DL 01/06/2021 6:45 PM CDT [facility] UROBILINOGEN NORMAL NORMAL MG/DL 01/06/2021 6:45 PM CDT [facility] BILIRUBIN (U) NEGATIVE NEGATIVE MG/DL 01/06/2021 6:45 PM CDT [facility] BLOOD (U) 1+(A) NEGATIVE 01/06/2021 6:45 PM CDT [facility] CULTURE & SENSITIVITY INDICATED? CULTURE IS NOT INDICATED 01/06/2021 6:45 PM CDT [facility] TRANSITIONAL EPI RARE /HPF 01/07/20 6:45 PM CDT [facility] MUCUS RARE /LPF 01/06/2021 6:45 PM CDT [facility] WBC/HPF 3 <6 /HPF 01/06/2021 6:45 PM CDT [facility] [facility] RBC/HPF 6(H) <6 /HPF 01/06/2021 6:45 PM CDT [facility] SQUAMOUS EPITHELIALS RARE /HPF 01/06/2021 6:45 PM CDT [facility] URINE SPECIMEN OBTAINED BY CLEAN CATCH PROCEDURE / Unknown 01/06/2021 6:29 PM CDT us Cris MCKEON URINE ORDERABLES Final Resul t [facility] [address] [place] [address], [place] [phone] * ECG 12-Lead (01/06/2021 6:05 PM CDT) 01/06/2021 6:05 PM CDT Narrative [facility] - 01/06/2021 8:07 PM CDT ?[facility] ? [address] [place] ? Test Date: ?2021-01-06 Pat Name: ? MOHSEN MARQUES ?Department: ? Room: ? 3 Gender: ? Female ? 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 RH : ?1955 ? Requested By: CRIS DE DIOS Order Number: [id number] ? Reading MD: ?? Noe Cowan ? Measurements Intervals ?[place] ? Rate: ? 97 ? P: ?42 VA: ? 126 ?QRS: ?-2 QRSD: ? 92 ? T: ?28 QT: ? 330 ? QTc: ?421 ? Interpretive Statements SINUS RHYTHM Compared to ECG 09/20/2020 23:47:35 ST (T wave) deviation no longer present No ischemic changes Preliminary EKG interpretation by ED Physician Justen Yoon PA-C CRITICAL ALERT ISSUED ON 01-06-2021 18:09:28 Procedure Note Noe Cowan MD - 01/06/[address] 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 * LACTIC ACID (01/06/2021 5:52 PM CDT) LACTIC ACID VENOUS 0.7 0.4 - 2.0 MMOL/L 01/06/2021 6:42 PM CDT [facility] 01/06/2021 5:5 2 PM CDT us Cris De iDos PA LABORATORY Final Result [facility] [address] [place] [address], * XR CHEST PORTABLE (01/06/2021 4:39 PM CDT) Anatomical Region Laterality Modality Chest Fluoroscopy 01/06/2021 5:03 PM CDT Impressions 01/06/2021 5:04 PM CDT =====IMPRESSION:===== Somewhat Limited inspiration with thickening of the bronchi and perhaps mild peribronchial cuffing. Mild congestion cannot be excluded. In the lung periphery no focal infiltrates. Referred By: CRIS DE DIOS Interpreted By: Genaro Sosa MD, 01/06/2021 5:03 PM Narrative 01/06/2021 5:04 PM CDT Examination: Chest x-ray 1 view Exam date/time: 01/06/2021 4:13 PM Reason For Exam: ??sob ? Comparison: Prior radiographs performed June 2020 Technique: Upright AP view of the chest demonstrated. Findings: ??The heart size is within normal limits. Mediastinum unremarkable. There is peribronchial cuffing with limited inspiration. The findings may represent congestive changes. In the lung periphery no focal infiltrates. No effusion. Osseous structures are intact. Procedure Note Genaro Sosa MD - 01/06/2021 Examination: Chest x-ray 1 view Exam date/time: 01/06/2021 4:13 PM Reason For Exam: sob Comparison: Prior radiographs performed June 2020 Technique: Upright AP view of the chest demonstrated. Findings: The heart size is within normal limits. Mediastinumunremarkable. There is peribronchial cuffing with limited inspiration. Thefindings may represent congestive changes. In the lung periphery no focalinfiltrates. No effusion. Osseous structures are intact. =====IMPRESSION:===== Somewhat Limited inspiration with thickening of the bronchi and perhapsmild peribronchial cuffing. Mild congestion cannot be excluded. In the lung periphery no focal infiltrates. Referred By: CRIS DE DIOS Interpreted By: Genaro Sosa MD, 01/06/2021 5:03 PM Cris MCKEON GENERAL IMAGING Final Result * PRO-BRAIN NATRIURETIC PEPTIDE (01/06/2021 4:01 PM CDT) PRO-B TYPE NATRIURETIC PEPTIDE 64 <125 PG/ML 01/06/2021 6:58 PM CDT [facility] Comment: CUT POINTS ESTABLISHED BY [...] OF 89% AND 72% FOR ACUTE CHF. 01/06/2021 4:01 PM CDT Cris MCKEON LABORATORY Final Result [facility] [address] [place] [address], * TROPONIN, QUANT (01/06/2021 4:01 PM CDT) TROPONIN I HIGH SENSITIVITY 10 <54 ng/L 01/06/2021 6:58 PM CDT [facility] Comment: HIGH DOSES OF BIOTIN, TROPONIN-SPECIFIC AUTOANTIBODIES, AND ANTIBODY THERAPY CONTAINING HAMA MAY INTERFERE WITH THIS TEST RESULT. CORRELATION TO CLINICAL HISTORY AND PRESENTATION RECOMMENDED. 01/06/2021 4:01 PM CDT Cris MCKEON LABORATORY Final Result Performing Organization Address City/[facility]/ZIP Co de Phone Number [facility] [address] [place] [address], * MAGNESIUM (01/06/2021 4:01 PM CDT) MAGNESIUM 1.9 1.8 - 2.4 MG/DL 01/06/2021 6:58 PM CDT [facility] Comment:SLIGHT HEMOLYSIS, RE SULT MAY BE AFFECTED. 01/06/2021 4:01 PM CDT Cris MCKEON LABORATORY Final Result [facility] [address] [place] [address], * PARTIAL THROMBOPLASTIN TIME,PTT (01/06/2021 4:01 PM CDT) PTT 33.8 25.1 - 36.5 SEC 01/06/2021 6:51 PM CDT [facility] 01/06/2021 4:01 PM CDT Cris MCKEON LABORATORY Final Result [facility] [address] [place] [address], [place] [phone] * (ABNORMAL) PROTIME/INR, VENOUS (01/06/2021 4:01 PM CDT) PROTIME 20.1(H) 10.2 - 12.9 SEC 01/06/2021 6:51 PM CDT [facility] INR 1.7 01/06/2021 6:51 PM CDT [facility] Comment: Recommended INR Therapeutic Goals: ??2.0-3.0 Routine Therapy ??2.5-3.5 Mechanical Prosthetic Valves (High Risk) 01/06/2021 4:01 PM CDT Cris MCKEON LABORATORY Final Result Performing Organization Address City/[facility]/ZIP Co de Phone Number [facility] [address] [place] [address], * CULTURE, BACTERIA, BLOOD (01/06/2021 4:01 PM CDT) SPEC DESCRIPTION BLOOD 01/06/2021 4:01 PM CDT [facility] SPECIAL REQUESTS NO SPECIAL REQUEST 01/06/2021 4:01 PM CDT [facility] CULTURE RESULT NO GROWTH 5 DAYS 01/11/2021 10:51 AM CDT [facility] BLOOD SPECIMEN OBTAINED FOR BLOOD CULTURE / Unknown 01/06/2021 4:01 PM CDT 01/06/2021 6:24 PM CDT Cris MCKEON MICROBIOLOGY - GENERAL ORDER [place]AP[place]O Final Result Performing Organization Address City/[facility]/ZIP Co de Phone Number [facility] [address] [place] [address], * CULTURE, BACTERIA, BLOOD (01/06/2021 4:01 PM CDT) SPEC DESCRIPTION BLOOD 01/06/2021 4:01 PM CDT [facility] SPECIAL REQUESTS NO SPECIAL REQUEST 01/06/2021 4:01 PM CDT [facility] CULTURE RESULT NO GROWTH 5 DAYS 01/11/2021 10:51 AM CDT [facility] BLOOD SPECIMEN OBTAINED FOR BLOOD CULTURE / Unknown 01/06/2021 4:01 PM CDT 01/06/2021 6:24 PM CDT Cris MCKEON MICROBIOLOGY - GENERAL ORDER CHAPARRO Final Result Performing Organization Address [facility] Co de Phone Number [facility] [address] [place] [address], * (ABNORMAL) COMPREHENSIVE METABOLIC PANEL (01/06/2021 4:01 PM CDT) GLUCOSE 111(H) 70 - 99 MG/DL 01/06/2021 6:58 PM CDT [facility] BUN 14 7 - 18 MG/DL 01/06/2021 6:58 PM CDT [facility] CREATININE S/P/B 0.86 0.55 - 1.02 MG/DL 01/06/2021 6:58 PM CDT [facility] SODIUM S/P/B 136 136 - 145 MMOL/L 01/06/2021 6:58 PM CDT [facility] POTASSIUM S/P/B 4.7 3.5 - 5.1 MMOL/L 01/06/2021 6:58 PM CDT [facility] Comment:SLIGHT HEMOLYSIS, RE SULT MAY BE AFFECTED. CHLORIDE S/P/B 103 100 - 108 MMOL/L 01/06/2021 6:58 PM CDT [facility] CO2 27.3 21 - 32 MMOL/L 01/06/2021 6:58 PM CDT [facility] CALCIUM S/P/B 9.7 8.5 - 10.1 MG/DL 01/06/2021 6:58 PM CDT [facility] BILIRUBIN TOTAL S/P/B 0.6 0.2 - 1.2 MG/DL 01/06/2021 6:58 PM CDT [facility] Comment: THIS ASSAY IS NOT RECOMMENDED FOR PATIENTS UNDERGOING TREATMENT WITH ELTROMBOPAG DUE TO THE POTENTIAL FOR FALSELY ELEVATED RESULTS. TOTAL PROTEIN S/P/B 8.7(H) 6.4 - 8.2 G/DL 01/06/2021 6:58 PM CDT [facility] ALBUMIN S/P/B 3.2(L) 3.4 - 5.0 G/DL 01/06/2021 6:58 PM CDT [facility] AST 21 15 - 37 U/L 01/06/2021 6:58 PM CDT [facility] Comment:SLIGHT HEMOLYSIS, RE SULT MAY BE AFFECTED. ALT 28 14 - 55 U/L 01/06/2021 6:58 PM CDT [facility] ALKALINE PHOSPHATASE S/P/B 97 50 - 136 U/L 01/06/2021 6:58 PM CDT [facility] ANION GAP 5.7 5 - 15 MMOL/L 01/06/2021 6:58 PM CDT [facility] BUN CREATININE RATIO 16.3 6 - 26 01/06/2021 6:58 PM CDT [facility] A/G RATIO 0.6(L) 1.0 - 2.0 RATIO 01/06/2021 6:58 PM CDT [facility] EGFR NON-AFR. AMER. 71(L) >90 ML/MIN/1.7 3 M2 01/06/2021 6:58 PM CDT [facility] EGFR AFR. AMER. 83(L) >90 ML/MIN/1.7 3 M2 01/06/2021 6:58 PM CDT [facility] Comment: NOTE: eGFR is not calculated for patients <18 years of age. This is an estimated GFR (CKD EPI) and should not be used for calculating drug doses. 01/06/2021 4:01 PM CDT us Cris MCKEON LABORATORY Final Result [facility] [address] [place] [address], * (ABNORMAL) CBC W/DIFF AUTOMATED (01/06/2021 4:01 PM CDT) WBC 11.6(H) 4.5 - 11.0 x10'3/uL 01/06/2021 6:31 PM CDT [facility] RBC 4.88 4.20 - 5.40 x10'6/uL 01/06/2021 6:31 PM CDT [facility] HGB 14.1 12.0 - 16.0 G/DL 01/06/2021 6:31 PM CDT [facility] HCT 45.1 38.0 - 48.0 % 01/06/2021 6:31 PM CDT [facility] MCV 92.4 81.0 - 99.0 FL 01/06/2021 6:31 PM CDT [facility] MCH 28.9 27.0 - 31.0 PG 01/06/2021 6:31 PM CDT [facility] MCHC 31.3(L) 32.0 - 36.0 G/DL 01/06/2021 6:31 PM CDT [facility] RDW 14.0 11.5 - 14.5 % 01/06/2021 6:31 PM CDT [facility] PLT 301 130 - 400 x10'3/uL 01/06/2021 6:31 PM CDT [facility] MPV 9.8 9.3 - 12.2 FL 01/06/2021 6:31 PM CDT [facility] DIFFERENTIAL TYPE AUTOMATED DIFFERENTIAL 01/06/2021 6:31 PM CDT [facility] NEUTROPHILS % 81.4 % 01/06/2021 6:31 PM CDT [facility] LYMPHOCYTES % 11.5 % 01/06/2021 6:31 PM CDT [facility] MONOCYTES % 5.3 % 01/06/2021 6:31 PM CDT [facility] EOSINOPHILS 1.2 % 01/06/2021 6:31 PM CDT [facility] BASOPHILS 0.3 % 01/06/2021 6:31 PM CDT [facility] IMMATURE GRANS % 0.3 % 01/07/20 6:31 PM CDT [facility] ABS. NEUTROPHILS TOTAL 9.44(H) 1.80 - 7.70 x10'3/uL 01/06/2021 6:31 PM CDT [facility] ABS. LYMPHOCYTES 1.33 1.00 - 4.80 x10'3/uL 01/06/2021 6:31 PM CDT [facility] ABS. MONOCYTES 0.61 0.24 - 0.86 x10'3/uL 01/06/2021 6:31 PM CDT [facility] ABS. EOSINOPHILS 0.14 0.04 - 0.36 x10'3/uL 01/06/2021 6:31 PM CDT [facility] ABS. BASOPHILS 0.03 0.01 - 0.08 x10'3/uL 01/06/2021 6:31 PM CDT [facility] ABS. IMMATURE GRANULOCYTES 0.04 0.00 - 0.49 x10'3/uL 01/06/2021 6:31 PM CDT [facility] 01/06/2021 4:01 PM CDT us Cris MCKEON LABORATORY Final Result [facility] [address] [place] [address], documented in this encounter Visit Diagnoses Diagnosis [id number] adverse reaction to medication, initial encounter- Primary documented in this encounter Administered Medications Inactive Administered Medications - up to 3 most recent administrations Medication Order MAR Action Action Date Dose Rate Site acetaminophen (TYLENOL) tablet 1,000 mg 1,000 mg, Oral, Once, 1 dose, On Mon01/06/21 at 1830, Maximum dose of acetaminophen is 4000 mg from all sources in 24 hours. Given 01/06/2021 6:24 PM CDT 1,000 mg iopamidol (ISOVUE-370) 76 % injection 80 mL 80 mL, Intravenous, IMG once as needed, Contrast, 1 dose, Starting on Mon01/06/21 at 1916, Until Mon01/06/21 at 1916 Given 01/06/2021 7:16 PM CDT 80 mLs Right Arm morphine injection 4 mg 4 mg, Intravenous, Once, 1 dose, On Mon01/06/21 at 2000 Given 01/06/2021 7:59 PM CDT 4 mg ondansetron (ZOFRAN) injection 4 mg 4 mg, Intravenous, Once, 1 dose, On Mon01/06/21 at 1900, IV push over 2-5 minutes. Given 01/06/2021 7:47 PM CDT 4 mg sodium chloride 0.9% bolus infusion SOLN 1,000 mL 1,000 mL, Intravenous, Administer over 15 Minutes, Once, 1 dose, On Mon01/06/21 at 1615 New Bag 01/06/2021 6:12 PM CDT 1,000 mLs documented in this encounter Active and Recently Administered Medications Times are shown in CDT. Scheduled Medication Order 01/04/2021 01/05/2021 01/06/2021 acetaminophen (TYLENOL) tablet 1,000 mg (COMPLETED) 1,000 mg, Oral, Once, 1 dose, On Mon01/06/21 at 1830, Maximum dose of acetaminophen is 4000 mg from all sources in 24 hours. 182 (Given - Provid er: Lisa Hernandez RN) morphine injection 4 mg (COMPLETED) 4 mg, Intravenous, Once, 1 dose, On Mon01/06/21 at 2000 1958 (Given - Provid er: Mohini Dickinson RN) ondansetron (ZOFRAN) injection 4 mg (COMPLETED) 4 mg, Intravenous, Once, 1 dose, On Mon01/06/21 at 1900, IV push over 2-5 minutes. 1946 (Given - Provid er: Mohini Dickinson RN) sodium chloride 0.9% bolus infusion SOLN 1,000 mL (COMPLETED) 1,000 mL, Intravenous, Administer over 15 Minutes, Once, 1 dose, On Mon01/06/21 at 1615 1812 (New Bag - Prov ider: Lisa Hernandez RN)2043 (Infusion Stop Time - Provider: Mohini Dickinson RN) PRN Medication Order 01/04/2021 01/05/2021 01/06/2021 iopamidol (ISOVUE-370) 76 % injection 80 mL (COMPLETED) 80 mL, Intravenous, IMG once as needed, Contrast, 1 dose, Starting on Mon01/06/21 at 1916, Until Mon01/06/21 at 191 1916 (Given - Provid er: Joan Garcia, RTR) documented in this encounter Care Teams Model Making Supervisor Relationship Specialty Start Date End Date Justen Gale MD [facility] [address] [place] [address] PCP - General FAMILY PRACTICE 08/20/17 Meena Bansal MD [address] [facility] [address] [place] [address] José Luis Data Entry Assistant CARDIOVASCULAR DISEASE 04/24/16 documented as of this encounter
--- OUTSIDE RECORDS SUMMARY | 2024-04-26 02:40 | XMS_ITS | Encounter Summary ---
Author Organization [facility] Address [address] [place] [address]. 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 [address] [address] PCP - General FAMILY PRACTICE 08/20/17 Meena Bansal MD [facility]. [facility] [address] [place] [address] [place] Loan Collector CARDIOVASCULAR DISEASE 04/24/16 documented as of this encounter
--- OUTSIDE RECORDS SUMMARY | 2024-04-26 02:40 | XMS_ITS | Encounter Summary ---
Author Organization [facility] Address [address] [place] [address]. [place] [address] [place] [address] Care Team Providers Care Music Manager Name Role Phone Meena Bansal MD Unavailable [phone] Justen Gale MD Primary Care Provider [phone] Reason for Referral * Imaging (Routine) - Closed Specialty Diagnoses / Procedures Referred By Contac t Referred To Contact RADIOLOGY Diagnoses Lumbar radiculopathy Procedures MRI THOR SPINE WO Joan Proctor NP [address] [facility], [address] [address] Phone: tel: fax: [place] [address] Phone: tel: Referral ID Status Reason Start Date Expiration Date Visits Re quested Visits Authorized [id number] Closed 11/10/2020 12/10/2021 1 1 Reason for Visit * Imaging (Routine) - Closed Specialty Diagnoses / Procedures Referred By Contac t Referred To Contact RADIOLOGY Diagnoses Lumbar radiculopathy Procedures MRI THOR SPINE WO Joan Proctor NP [address] [facility], [address] [address] Phone: tel: fax: [facility] [place] [address] Phone: tel: Referral ID Status Reason Start Date Expiration Date Visits Re quested Visits Authorized [id number] Closed 11/10/2020 12/10/2021 1 1 Encounter Details Date Type Department Care Team (Latest Contact Info) Description 12/01/2020 9:37 AM CDT - 12/01/2020 11:59 PM CDT Hospital Encounter [facility] [address] [place] [address] Joan Colon, CURTIS [address] 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 ??No abnormal marrow signal suggestive of metastatic disease involving the thoracic spine. 2. ??No abnormal thoracic spinal cord signal. 3. ??Mild to moderate thoracic spondylosis predominantly of the lower thoracic levels, greatest at T9-10 with a disc bulge as well as facet hypertrophy and ligamentum flavum thickening impressing the ventral thecal sac contributing to moderate spinal canal stenosis, as described. 4. ??Probable synovial cyst extending into the posterior paraspinal muscles from the left T10-11 facet joint, as described. Referred By: JOAN COLON Interpreted By: Jeremías Gallegos MD, 12/01/2020 7:45 PM Narrative 12/01/2020 8:01 PM CDT EXAMINATION: MRI THOR SPINE WO CON, 12/01/2020 7:45 PM TECHNIQUE: Axial and sagittal T1, axial and sagittal T2, and sagittal T2 STIR magnetic resonance images of the thoracic spine were obtained without intravenous contrast. HISTORY: Chronic back pain since 2017, past medical history of breast cancer status post bilateral mastectomy in 2015 COMPARISON: CTA chest 07/23/2020, CT abdomen and pelvis 09/21/2020 FINDINGS: There are 12 rib-bearing thoracic type vertebral bodies. ??The thoracic vertebral bodies and facets are well aligned. ??The thoracic vertebral body heights are preserved. ??There is intervertebral disc height loss at T4-5, T5-6, T6-7, T7-8, T8-9, T9-T10 and T10-11. ??There are Modic endplate degenerative changes at C5-6 and C6-7. ??There is a hemangioma within the T11 vertebral body. ??There is no abnormal prevertebral or paraspinal soft tissue swelling. ??The conus medullaris terminates at T12-L1, normal. ??There is a normal morphology conus medullaris. ??The thoracic spinal cord is normal signal throughout its course. ??There is a 1.5 cm cyst within the right kidney. Partially visualized disc bulges at C5-6 and C6-7 which impresses the ventral thecal sac and contributing to mild spinal canal stenosis. There is a disc bulge at T6-7 which impresses the ventral thecal sac and effaces it with the ventral spinal cord contributing to mild spinal canal stenosis. ??There is a disc bulge at T9-T10 which impresses the ventral thecal sac as well as mild to moderate facet hypertrophy impressing the dorsal thecal sac contributes to moderate spinal canal stenosis at this level (best seen on series 11 image 33). ??Smaller disc bulges at C5-6, T7-8, T8-9, and T10-11 impresses the thecal sac and contribute to no more than mild spinal canal stenosis. ??There is a 0.5 cm cyst along the posterior portion of the left T10-11 facet joint (best seen on series 8 image 7, series 11 image 39, series 10 image 5). ??There is moderate bilateral T9-T10 neural foraminal stenosis secondary to facet joint hypertrophy and marginal endplate osteophytes. ??Otherwise, there is no significant neural foraminal stenosis at any level. Procedure Note Jeremías Gallegos MD - 12/01/2020 EXAMINATION: MRI THOR SPINE WO CON, 12/01/2020 7:45 PM TECHNIQUE: Axial and sagittal T1, axial and sagittal T2, and sagittal T2STIR magnetic resonance images of the thoracic spine were obtained withoutintravenous contrast. HISTORY: Chronic back pain since 2017, past medical history of breastcancer status post bilateral mastectomy in 2014 COMPARISON: CTA chest 07/23/2020, CT abdomen and pelvis 09/21/2020 FINDINGS: There are 12 rib-bearing thoracic type vertebral bodies. Thethoracic vertebral bodies and facets are well aligned. The thoracicvertebral body heights are preserved. There is intervertebral disc heightloss at T4-5, T5-6, T6-7, T7-8, T8-9, T9-T10 and T10-11. There are Modicendplate degenerative changes at C5-6 and C6- 7. There is a hemangiomawithin the T11 vertebral body. There is no abnormal prevertebral orparaspinal soft tissue swelling. The conus medullaris terminates [id number], normal. There is a normal morphology conus medullaris. Thethoracic spinal cord is normal signal throughout its course. There is a1.5 cm cyst within the right kidney. Partially visualized disc bulges at C5-6 and C6-7 which impresses theventral thecal sac and contributing to mild spinal canal stenosis. There is a disc bulge at T6-7 which impresses the ventral thecal sac andeffaces it with the ventral spinal cord contributing to mild spinal canalstenosis. There is a disc bulge at T9-T10 which impresses the ventralthecal sac as well as mild to moderate facet hypertrophy impressing thedorsal thecal sac contributes to moderate spinal canal stenosis at thislevel (best seen on series 11 image 33). Smaller disc bulges at C5-6,T7-8, T8-9, and T10-11 impresses the thecal sac and contribute to no morethan mild spinal canal stenosis. There is a 0.5 cm cyst along theposterior portion of the left T10-11 facet joint (best seen on series 8image 7, series 11 image 39, series 10 image 5). There is moderatebilateral T9-T10 neural foraminal stenosis secondary to facet jointhypertrophy and marginal endplate osteophytes. Otherwise, there is nosignificant neural foraminal stenosis at any level. IMPRESSION: 1. No abnormal marrow signal suggestive of metastatic disease involvingthe thoracic spine. 2. No abnormal thoracic spinal cord signal. 3. Mild to moderate thoracic spondylosis predominantly of the lowerthoracic levels, greatest at T9-10 with a disc bulge as well as facethypertrophy and ligamentum flavum thickening impressing the ventral thecalsac contributing to moderate spinal canal stenosis, as described. 4. Probable synovial cyst extending into the posterior paraspinal musclesfrom the left T10-11 facet joint, as described. Referred By: JOAN COLON Interpreted By: Jeremías Gallegos MD, 12/01/2020 7:45 PM Joan Colon ELEVATOR CONDUCTOR MRI Final Result documented in this encounter Visit Diagnoses Diagnosis Lumbar radiculopathy Thoracic or lumbosacral neuritis or radiculitis, unspecified documented in this encounter Care Teams Music Manager Relationship Specialty Start Date End Date Justen Gale MD [facility]. [facility] [address] [place] [address] PCP - General FAMILY PRACTICE 08/20/17 Meena Bansal MD [facility]. [facility] [address] [place] [address] José Luis Dovetail Machine Operator CARDIOVASCULAR DISEASE 04/24/16 documented as of this encounter
--- OUTSIDE RECORDS SUMMARY | 2024-04-26 02:40 | XMS_ITS | Encounter Summary ---
Author Organization [facility] Address [address] [place] [address]. 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 [address] [address] PCP - General FAMILY PRACTICE 08/20/17 Meena Bansal MD [facility]. [facility] [address] [place] [address] [employer] CARDIOVASCULAR DISEASE 04/24/16 documented as of this encounter
--- OUTSIDE RECORDS SUMMARY | 2024-04-26 02:40 | XMS_ITS | Encounter Summary ---
Author Organization [facility] Address [address] [place] [address]. [place] [address] [place] [address] Care Team Providers Care Mechanical Artist Name Role Phone Meena Bansal MD Unavailable [phone] Justen Gale MD Primary Care Provider [phone] Encounter Details Date Type Department Care Team (Late st Contact Info) Description 04/19/2021 Patient Self-Triage [facility] [address] [place] [id number] [facility] Provider Social History Tobacco Use Types Packs/Day [...] Sexual Orientation Straight 03/18/2018 3 :01 AM ASSOCIATE PATHOLOGIST COVID-19 Exposure Response Date Recorded In the last month, have you been in contact with someone who was confirmed or suspected to have Coronavirus / COVID-19? Yes 04/19/2021 8:07 PM ASSOCIATE PATHOLOGIST documented as of this encounter Functional Status [...] Rule Out 04/19/2021 04/19/2021 04/19/2021 10:15 PM ASSOCIATE PATHOLOGIST COVID-19 Confirmed 04/19/2021 04/19/2021 12:32 AM ASSOCIATE PATHOLOGIST documented as of this encounter Care Teams Mechanical Artist Relationship Specialty Start Date End Date Justen Gale MD [address] [facility] [address] [place] [address] PCP - General FAMILY PRACTICE 08/20/17 Meena Bansal MD [address] [place] [address] [place] [address] [employer] CARDIOVASCULAR DISEASE 04/24/16 documented as of this encounter
--- OUTSIDE RECORDS SUMMARY | 2024-04-26 02:41 | XMS_ITS | Encounter Summary ---
Author Organization [facility] Address [address] [place] [address]. [place] [address] [place] [address] Care Team Providers Care Gravity Prospecting Operator Helper Name Role Phone Meena Bansal MD Unavailable Justen Gale MD Primary Care Provider [phone] Encounter Details Date Type Department Care Team (Latest Contact Info) Description 07/09/2020 Travel Social History Tobacco Use Types Packs/Day Years Used Date Smoking Tobacco: Former Cigarettes Q uit: 03/23/1977 Smokeless Tobacco: Never Alcohol Use Standard Drinks/Week Comments No 0 (1 standard drink = 0.6 oz pur e alcohol) Comments No Sex and Gender Information Value Date Recorded Sex Assigned at Female 09/06/2020 12:50 AM CDT Legal Sex Female 10:47 AM CDT Gender Identity Female 09/06/2020 12:50 AM CDT Sexual Orientation Straight 03/18/2018 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 No / Unsure 07/09/2020 9:59 PM CDT documented as of this encounter Functional Status * RETIRED Are you deaf or do you have serious difficulty hearing Answer Date of Assessment Author Status No 09/09/2018 5:09 AM CDT Activ e * RETIRED Are you blind or do you have serious difficulty seeing, even when wearing glasses? Answer Date of Assessment Author Status No 09/09/2018 5:09 AM CDT Activ e * Do you have serious difficulty walking or climbing stairs? Answer Date of Assessment Author Status No 09/09/2018 5:09 AM Farzaneh Juan RN Active * Do you have difficulty dressing or bathing? Answer Date of Assessment Author Status No 09/09/2018 5:09 AM Farzaneh Juan RN Active * Because of a physical, mental, or emotional condition, do you have difficulty doing errands alone such as visiting a doctor's office or shopping? Answer Date of Assessment Author Status No 09/09/2018 5:09 AM Farzaneh Juan RN Active documented as of this encounter Mental Status * Because of a physical, mental, or emotional condition, do you have serious difficulty concentrating, remembering, or making decisions? Answer Entry Date Author Status No 09/09/2018 5:09 AM Farzaneh Juan RN Active documented in this encounter Plan of Treatment Not on file documented as of this encounter Visit Diagnoses Not on filedocumented in this encounter Care Teams Gravity Prospecting Operator Helper Relationship Specialty Start Date End Date Justen Gale MD [facility]. [address] [address] PCP - General FAMILY PRACTICE 08/20/17 Meena Bansal MD [facility]. [address] [address] José Luis Director Of Safety And Security CARDIOVASCULAR DISEASE 04/24/16 documented as of this encounter
--- OUTSIDE RECORDS SUMMARY | 2024-04-26 02:41 | XMS_ITS | Encounter Summary ---
Author Organization [facility] Address [address] [place] [address]. 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 No / Unsure 09/05/2019 6:09 PM CDT documented as of this encounter [...] Infection Onset Date Last Indicated Resolved Time MRSA Comment:MRSA nares pos. 02/201808/31/2018 08/31/2018 07/02/19 21 2:54 AM CASKET COVERER COVID-19 Rule Out 09/05/2019 09/05/2019 09/06/2019 9:29 AM CDT documented as of this encounter Care Teams Manager Of Organizational Development Relationship Specialty Start Date End Date Justen Gale MD [facility]. [place] [address] [place] [address] PCP - General FAMILY PRACTICE 08/20/17 Meena Bansal MD [facility]. [facility] [address] [place] [address] José Luis Integrity Specialist CARDIOVASCULAR DISEASE 04/24/16 documented as of this encounter
--- OUTSIDE RECORDS SUMMARY | 2024-04-26 02:41 | XMS_ITS | Encounter Summary ---
Author Organization [facility] Address [address] [place] [address]. 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 Name Role Phone Meena Bansal MD Unavailable [phone] Justen Gale MD Primary Care Provider [phone] Reason for Referral * Imaging (Emergency) - Closed Specialty Diagnoses / Procedures Referred By Elyssa t Referred To Contact RADIOLOGY Procedures CTA CHEST Jaswinder Gaytan MD [address] [place] [address] Phone: tel: fax: Referral ID Status Reason Start Date Expiration Date Visits Re quested Visits Authorized [id number] Closed 07/22/2020 08/21/2021 1 1 Reason for Visit * Reason Comments Shortness Of Breath Encounter Details Date Type Department Care Team (Late st Contact Info) Description 07/22/2020 10:32 PM CDT - 07/23/2020 4:31 AM CDT Emergency [facility] Emergency [place], [place] [id number] Jaswinder Gaytan MD [address] [place], [place] [id number] Shortness Of Breath Discharge Disposition: Home or [...] Sexual Orientation Straight 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 No / Unsure 07/22/2020 10:59 PM CDT documented as of this encounter Last Filed Vital Signs Vital Sign Reading Time Taken Comments Blood Pressure 96/70 07/23/2020 4:05 AM CDT Pulse 88 07/23/2020 2:15 AM CDT Temperature 36.7 ??C (98.1 ??F) 07/22/2020 10:19 PM C DT Respiratory Rate 17 07/23/2020 3:00 AM CDT Oxygen Saturation 97% 07/23/2020 4:05 AM CDT Inhaled Oxygen Concentration - - Weight 135.2 kg (298 lb) 07/22/2020 10:19 PM CDT Height 154.9 cm (5' 1 ) 07/22/2020 10:19 PM CDT Body Mass Index 56.31 07/22/2020 10:19 PM CDT documented in this encounter Functional [...] Author Status No 09/09/2018 5:09 AM CDT Farzaneh Morgan RN Active * Do you have difficulty dressing or bathing? Answer Date of Assessment Author Status No 09/09/2018 5:09 AM CDT Farzaneh Morgan RN Active * Because of a physical, [...] Juan RN Active documented in this encounter Discharge Instructions * Discharge Instructions* Jaswinder Gaytan MD - 07/23/2020 4:09 AM CDT Emergency Departments (ED) provide medical screening exams [...] care by your primary care physician or trial consultant. Your medication list was reviewed prior [...] such as many narcotic drug combinations and xobo-[id number] cold medicines. Your feedback is important to us. Please fill out the survey you will get in the mail. We need yourinput to give you the best care possible! With your feedback we??ll know where we need to focus ourefforts to provide very good service to our patients! * Attachments The following attachments cannot be sent through Care Everywhere. * Sacroiliac Joint Pain Discharge Instructions (Ivorian) * Shortness of Breath (Dyspnea) Discharge Instructions (Ivorian) documented in this encounter Medications at Time [...] mg total) by mouth every evening. 1 albuterol sulfate HFA 108 (90 Base) MCG/ACT inhaler Inhale 2 puffs into the lungs every 4 (four) hours as needed for Shortness of breath. 8 g 1 09/06/19 21 amitriptyline 25 MG tablet Take 25 mg by mouth nightly at bedtime. 10/13/19 24 diclofenac EC 75 MG tablet Take 1 tablet (75 mg total) by mouth 2 (two) times daily as needed (Pain. Please take with meals). 30 tablet 1 09/06/19 21 lisinopril 20 MG tablet Take 20 mg by mouth daily. 10/13/19 24 ondansetron 4 MG disintegrating tablet Take 1 tablet (4 mg total) by mouth every 4 (four) hours as needed for Nausea. 20 tablet 1 09/22/19 21 oxybutynin 5 MG tablet Take 5 mg by mouth 2 (two) times daily. 10/13/19 24 tiZANidine HCl (ZANAFLEX) 2 MG CapIndications:Bila teral sacroiliitis (CMS/HCC) Take 1 tablet by mouth 3 (three) times daily. 90 capsule 09/06/19 21 documented as of this encounter ED Notes * Jaswinder Gaytan MD - 07/23/2020 3:59 AM CDT Chief Complaint Chief Complaint Patient presents with ??? Shortness Of Breath History of Present Illness NOTE: This patient was cared for in the middle of an unusual surge in emergency department census directly related to the SARS-2/COVID-19 pandemic. As a result, some of the time indices noted below may be inaccurate. The patient is an extremely pleasant 65-year-old female examined in the emergency department in bed#21. She presents today complaining of pain throughout her body. Specifically, she is complaining of pain in her low back/pelvis, arms, and legs. She feels very weak. She stated that on the evening prior to presentation she began becoming short of breath. She was seen at our facility 1 week ago forvery similar symptoms and underwent a full work-up including an MRI. She was diagnosed with bilateral sacroiliitis. At that time was noted that she had an elevated CRP. I have explained to the patient that bilateral sacroiliitis can cause elevations in CRP. She continues to express worry that she has an autoimmune disorder or pneumonia because of the elevated CRP. Onset is been over the past several weeks, with shortness of breath developing on the evening prior to presentation. No clear palliative factors are identified. Her symptoms are likely provoked by her known bilateral sacroiliitis. Severity is mild to moderate. Time course [...] every 4 (four) hours as needed for Shortness of breath. 07/23/20 Yes Jaswinder Gaytan MD amitriptyline 25 MG tablet Take 25 mg by mouth nightly at bedtime. Yes Doc Abstract diclofenac EC 75 MG tablet Take 1 tablet (75 mg total) by mouth 2 (two) times daily as needed (Pain. Please take with meals). 07/23/20 Yes Jaswinder Gaytan MD exemestane 25 MG tablet Take 25 mg by mouth daily with supper. Give with food 08/09/17 Yes Doc Abstract HYDROcodone-acetaminophen 7.5-325 MG tablet Take 1 tablet by mouth every 6 (six) hours as needed. 06/27/20 Yes Doc Abstract insulin glargine (LANTUS SOLOSTAR) 100 UNIT/ML injection (PEN) Inject 50 Units into the skin every morning. Yes Doc Abstract insulin lispro 100 UNIT/ML injection (VIAL) Inject 20-22 Units into the skin see administration instructions. 20 units before breakfast. 20 units before lunch. 22 units before dinner. Patient also uses sliding scale: BS>140, add 1 unit for every 15 mg/dl >140 Yes lisinopril 20 MG tablet Take 20 mg by mouth daily. Yes Doc Abstract ondansetron 4 MG disintegrating tablet Take 1 tablet (4 mg total) by mouth every 4 (four) hours as needed for Nausea. 06/25/20 Yes Jaswinder Gaytan MD oxybutynin 5 MG tablet Take 5 mg by mouth 2 (two) times daily. Yes Doc Abstract ROPINIROLE HYDROCHLORIDE 5 MG Tab Take 5 mg by mouth nightly at bedtime. 07/14/17 Yes Doc Abstract tiZANidine HCl (ZANAFLEX) 2 MG Cap Take 1 tablet by mouth 3 (three) times daily. 07/10/20 Yes Peter Schwartz MD XARELTO 20 MG Tab tablet Take 20 mg by mouth every evening. 07/17/20 Yes Doc Abstract PAST MEDICAL HISTORY: Past Medical [...] Tobacco Use ??? Smoking status: Former Smoker Quit date: 03/23/1977 Years since quittin.3 ??? Smokeless tobacco: Never Used Substance Use Topics ??? Alcohol use: No ??? Drug use: No Review of Systems Review of Systems REVIEW OF SYSTEMS: The patient denies fevers, chills, or sweats. Denies nausea, vomiting, diarrhea,constipation, or abdominal pain. Denies chest pain, complains of shortness of breath, and dyspnea on exertion, denies palpitations. Denies headache, loss of consciousness, or seizures. Denies dysuriaor hematuria. Ten systems reviewed and negative except as described above or in the HPI. Physical Exam Filed Vitals: 07/23/20 0151 07/23/20 0215 07/23/20 0300 07/23/20 0405 BP: 130/79 105/70 96/70 Pulse: 88 Resp: 20 17 Temp: SpO2: 96% 96% 95% 97% Weight: Height: Physical Exam VITALS: Reviewed. GENERAL: The patient is a very pleasant 65-year-old female examined in the Emergency Department. Patient is in mild acute distress at the time of my [...] regular rhythm. Normal S1 and S2. ABDOMEN: Exam limited by body habitus (the patient's BMI is greater than 56). Within that limitation, the patient's abdomen is soft, nontender, and nondistended. No masses, bruits or hepatosplenomegaly are noted. BACK: No bony spinal tenderness, step-off, or deformity is appreciated. The patient is exquisitely tender at the bilateral SI joints. This fully reproduces the symptoms in her lower extremities and she feels it goes through to (her) stomach . 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 : 1955 Requested By: MAXI CALDERA Order Number: [id number] Reading MD: Measurements Intervals Froid Rate: 100 P: 4 MS: 143 QRS: 0 QRSD: 88 T: 48 QT: 330 QTc: 427 Interpretive Statements SINUS TACHYCARDIA ABNORMAL RHYTHM ECG Compared to ECG 06/25/2020 16:11:39 Sinus rhythm no longer present LABORATORY STUDIES: Results for orders placed or performed during the hospital encounter of 07/22/20 CBC W/DIFF AUTOMATED Result Value Ref Range WBC 12.2 (H) 4.5 - 11.0 x10'3/uL RBC 4.35 4.20 - 5.40 x10'6/uL HGB 12.8 12.0 - 16.0 G/DL HCT 40.3 38.0 - 48.0 % MCV 92.6 81.0 - 99.0 FL MCH 29.4 27.0 - 31.0 PG MCHC 31.8 (L) 32.0 - 36.0 G/DL RDW 14.5 11.5 - 14.5 % PLT 287 130 - 400 x10'3/uL MPV 10.1 9.3 - 12.2 FL DIFFERENTIAL TYPE AUTOMATED DIFFERENTIAL NEUTROPHILS 60.9 % LYMPHOCYTES 27.5 % MONOCYTES 7.5 % EOSINOPHILS 3.3 % BASOPHILS 0.5 % IMMATURE GRANS 0.3 % ABS. NEUTROPHILS TOTAL 7.41 1.80 - 7.70 x10'3/uL ABS. LYMPHOCYTES 3.35 1.00 - 4.80 x10'3/uL ABS. MONOCYTES 0.91 (H) 0.24 - 0.86 x10'3/uL ABS. EOSINOPHILS 0.40 (H) 0.04 - 0.36 x10'3/uL ABS. BASOPHILS 0.06 0.01 - 0.08 x10'3/uL ABS. IMMATURE GRANULOCYTES 0.04 0.00 - 0.49 x10'3/uL COMPREHENSIVE METABOLIC PANEL Result Value Ref Range GLUCOSE 201 (H) 70 - 99 MG/DL BUN 15 7 - 18 MG/DL CREATININE S/P/B 0.86 0.55 - 1.02 MG/DL SODIUM 137 136 - 145 MMOL/L POTASSIUM 4.4 3.5 - 5.1 MMOL/L CHLORIDE S/P/B 104 100 - 108 MMOL/L CO2 30.6 21 - 32 MMOL/L CALCIUM 9.3 8.5 - 10.1 MG/DL BILIRUBIN TOTAL S/P/B 0.3 0.2 - 1.2 MG/DL TOTAL PROTEIN S/P/B 8.1 6.4 - 8.2 G/DL ALBUMIN S/P/B 3.2 (L) 3.4 - 5.0 G/DL AST 17 15 - 37 U/L ALT 25 14 - 55 U/L ALKALINE PHOSPHATASE S/P/B 93 50 - 136 U/L ANION GAP 2.4 (L) 5 - 15 MMOL/L BUN CREATININE RATIO 17.5 6 - 26 A/G RATIO 0.7 (L) 1.0 - 2.0 RATIO eGFR Non-Afr. Amer. 71 (L) >90 ML/MIN/1.73 M2 eGFR Afr. Amer. 83 (L) >90 ML/MIN/1.73 M2 BNP Result Value Ref Range B TYPE NATRIURETIC PEPTIDE 11 <100 PG/ML TROPONIN, QUANT Result Value Ref Range TROPONIN I <0.015 <0.045 ng/mL. Blood gas, arterial Result Value Ref Range TIME TEST WAS PERFORMED: 140 SAMPLE TYPE ARTERIAL DRAW SITE RT RADIAL ROSALINDA TEST ROSALINDA TEST PERFORMED TECH CODE 537,226 FIO2 21.0 % PH 7.39 7.35 - 7.45 PCO2 47.1 (H) 35 - 45 MM HG PO2 79.8 (L) 80 - 100 MM HG BICARB-ARTERIAL 28.3 (H) 21 - 28 MEQ/L TCO2 29.7 MEQ/L BE/BASE EXCESS 2.6 (H) 0 - 2 MEQ/L HEMOGLOBIN, BLOOD GAS 12.4 12.0 - 16.0 G/DL % O2 HEMOGLOBIN,ARTERIAL 94.9 (L) 95 - 100 % CARBON MONOXIDE 0.8 <3.0 % METH HEMOGLOBIN 0.6 0.4 - 1.5 % O2 CONTENT 16.6 15 - 22 VOL% AADO2 16.1 P/F RATIO (TIDAL VOL CALC) 380 LACTIC ACID Result Value Ref Range LACTIC ACID 1.3 0.4 - 2.0 MMOL/L PROCALCITONIN (PCT) Result Value Ref Range Procalcitonin <0.05 <0.5 NG/ML TROPONIN, QUANT Result Value Ref Range TROPONIN I <0.015 <0.045 ng/mL. INFLUENZA A & B Specimen: NASAL Result Value Ref Range Specimen Type NASAL INFLUENZA A NEGATIVE NEGATIVE INFLUENZA B NEGATIVE NEGATIVE IMAGING STUDIES CTA CHEST Final Result by User, [email or web address] (07/23 013) Date: 07/23/2020 12:34 AM Exam: CTA CHEST Comparison: CT chest dated 03/14/2019. Technique: Thin section images were obtained of the chest with a CTA pulmonary embolism protocol and with IV contrast. 80 ml of Isovue-370 thru an existing IV site. 3-D volume rotational vascular reconstructions. Coronal, sagittal and coronal 3D MIP reconstructions. A dose lowering technique was used for this procedure, which may include, but is not limited to, dose reduction technique, automated exposure control, the use of iterative reconstruction, and ALARA (As Low As Reasonably Achievable)/ Image gently techniques. History: Whole-body ache. Weakness. Shortness of breath. Findings: CHEST: There are partially calcified nodules in the thyroid. Would consider thyroid ultrasound in the near future. The heart size is normal without pericardial effusion. There is scattered calcified coronary arterial disease. The thoracic aorta appears normal without aneurysm nor dissection. The pulmonary arteries are patent without evidence of pulmonary embolism. There is a stable 12 mm lymph node in the anterior mediastinum. There is no adenopathy elsewhere. The tracheal and main bronchial airways are patent. There are no consolidations nor pleural effusions. There are stable small nodules in the posterior medial left lung base. The largest nodule measures 5.8 mm. There is vascular congestion. Visualized upper abdomen: The visualized portions of the liver, spleen, pancreas, adrenal glands and upper pole left kidney appear normal. The gallbladder is surgically absent. Osseous structures: There are stable degenerative changes in the spinal column. Impression: 1. Mild vascular congestion, but no pulmonary edema. 2. No pulmonary embolism. 3. Stable 12 mm nodule in the anterior mediastinum. 4. Partially calcified thyroid nodules. Would consider thyroid ultrasound in the near future. 5. Stable small nodules in the posterior medial left lung base. No follow-up is necessary in a low risk patient. Optional CT chest is advised at one year in a high-risk patient according to the Fleischner criteria. Referred By: Interpreted By: Jeremías Watson MD, 07/23/2020 1:21 AM XR CHEST PORTABLE Final Result by User, [id number] 07/22 2248) Date: 07/22/2020 10:26 PM Exam: XR CHEST PORTABLE Comparison: Chest radiography dated 06/25/2020, 11/10/2019. Technique: Single view chest. History: Shortness of breath. Bodyaches. Weakness. Findings: The cardiac silhouette is obscured by the patient's pannus. There is diffuse vascular congestion. The upper lungs are clear. The lower lung rincon are not well visualized due to the overlapping pannus. There is a possible opacity in the right lung base that could present atelectasis and/or pneumonia. There is no pneumothorax. Impression: 1. Diffuse vascular congestion. 2. Right lower lobe atelectasis versus pneumonia. Referred By: Interpreted By: Jeremías Watson MD, 07/22/2020 10:47 PM ED Course / Medical Decision Making This patient was evaluated for the symptoms described in the history of present illness. She was evaluated in the context of the global COVID-19 pandemic, which necessitated consideration that the patient might be at risk for infection with the SARS-CoV-2 virus that causes COVID-19. Institutional protocols and algorithms that pertain to the evaluation of patients at risk for COVID-19 are in a state of rapid change based on information released by regulatory bodies including the CDC and federal and state organizations. These policies and algorithms were followed during the patient's care. I estimate there is LOW risk for ACUTE CORONARY SYNDROME, PERICARDIAL TAMPONADE, PNEUMOTHORAX, PNEUMONIA, PULMONARY EMBOLISM, SEPSIS, ABDOMINAL AORTIC ANEURYSM, CAUDA EQUINA SYNDROME, or EPIDURAL MASS LESION, thus I consider the discharge disposition reasonable. We have discussed the diagnosis and risks, and we agree with discharging home to follow-up with their primary doctor. We also discussed returning to the Emergency Department immediately if new or worsening symptoms occur. We have discussed the symptoms which are most concerning (e.g., changing or worsening pain, weakness, vomiting, fever) that necessitate immediate return. The patient is oxygenating well, and has no apparent pneumonia (no fever, cough, normal procalcitonin, and normal chest CT). The patient seems to be suffering from a recurrence of her bilateral sacroiliitis. She will be discharged to follow-up with primary care. Clinical Impression Bilateral sacroiliitis (CMS/HCC) (Primary) Dyspnea Disposition: Discharge I dictated portions of this note using [employer] speech recognition software. Occasional wrong word or sound-alike substitutions may have occurred due to the inherent limitations of voice recognition software. Please read the chart carefully and recognize, using context, where the substitutions may have occurred. If there are any questions, please contact me via [employer] or other HIPAA compliant communication medium for clarification. Jaswinder Gaytan MD 07/23/20 0411 * Sandee Mi RN - 07/22/2020 10:15 PM CDT PT STATES - I WAS HERE OVER A WEEK AGO, MY WHOLE BODY IS HURTING, BACK, ARMS, LEGS, I FEEL VERY WEAK, I STARTED GETTING SOB THIS EVENING. RESPIRATIONS LABORED AND RAPID. documented in this encounter Plan of Treatment Not on file documented as of this encounter Procedures Procedure Name Priority Date/Time Associated Diagnosis Comments TROPONIN, QUANT STAT 07/23/2020 2:30 AM CDT CTA CHEST STAT 07/23/2020 1:12 AM CDT INFLUENZA A & B STAT 07/22/2020 11:52 PM CDT PROCALCITONIN (PCT) STAT 07/22/2020 1 1:38 PM CDT LACTIC ACID TIMED 07/22/2020 11:38 PM CDT BLOOD GAS, ARTERIAL LAB STAT 07/22/2020 11:35 PM CDT CULTURE, BACTERIA, BLOOD STAT 07/22/2020 11:34 PM CDT CULTURE, BACTERIA, BLOOD STAT 07/22/2020 11:34 PM CDT TROPONIN, QUANT STAT 07/22/2020 11:34 PM CDT ECG 12-LEAD Routine 07/22/2020 10:46 PM CDT XR CHEST PORTABLE STAT 07/22/2020 10: 41 PM CDT BNP STAT 07/22/2020 10:23 PM CDT COMPREHENSIVE METABOLIC PANEL STAT 07/22/2020 10:23 PM CDT CBC W/DIFF AUTOMATED STAT 07/22/2020 10:23 PM CDT documented in this encounter Results * TROPONIN, QUANT (07/23/2020 2:30 AM CDT) TROPONIN I <0.015 <0.045 ng/mL. 07/23/2020 3:17 AM CDT [facility] Comment: HIGH DOSES OF BIOTIN MAY INTERFERE WITH THIS TEST RESULT. CORRELATION TO CLINICAL HISTORY AND PRESENTATION RECOMMENDED. 07/23/2020 2:30 AM CDT us Jaswinder Gaytan MD LABORATORY Final Result [facility] [address] [place] [address], * CTA CHEST (07/23/2020 1:12 AM CDT) Anatomical Region Laterality Modality Chest Computed Tomogra phy 07/23/2020 1:21 AM CDT Impressions 07/23/2020 1:29 AM CDT Impression: 1. ??Mild vascular congestion, but no pulmonary edema. 2. ??No pulmonary embolism. 3. ??Stable 12 mm nodule in the anterior mediastinum. 4. ??Partially calcified thyroid nodules. ??Would consider thyroid ultrasound in the near future. 5. ??Stable small nodules in the posterior medial left lung base. ??No follow-up is necessary in a low risk patient. ??Optional CT chest is advised at one year in a high-risk patient according to the Fleischner criteria. Referred By: ?? Interpreted By: Jeremías Watson MD, 07/23/2020 1:21 AM Narrative 07/23/2020 1:29 AM CDT Date: 07/23/2020 12:34 AM Exam: CTA CHEST Comparison: CT chest dated 03/14/2019. Technique: Thin section images were obtained of the chest with a CTA pulmonary embolism protocol and with IV contrast. 80 ml of Isovue-370 thru an existing IV site. ??3-D volume rotational vascular reconstructions. ??Coronal, sagittal and coronal 3D MIP reconstructions. A dose lowering technique was used for this procedure, which may include, but is not limited to, dose reduction technique, automated exposure control, the use of iterative reconstruction, and ALARA (As Low As Reasonably Achievable)/ Image gently techniques. History: Whole-body ache. ??Weakness. ??Shortness of breath. Findings: CHEST: There are partially calcified nodules in the thyroid. ??Would consider thyroid ultrasound in the near future. ??The heart size is normal without pericardial effusion. ??There is scattered calcified coronary arterial disease. ??The thoracic aorta appears normal without aneurysm nor dissection. ??The pulmonary arteries are patent without evidence of pulmonary embolism. ??There is a stable 12 mm lymph node in the anterior mediastinum. ??There is no adenopathy elsewhere. The tracheal and main bronchial airways are patent. ??There are no consolidations nor pleural effusions. ??There are stable small nodules in the posterior medial left lung base. ??The largest nodule measures 5.8 mm. ??There is vascular congestion. Visualized upper abdomen: The visualized portions of the liver, spleen, pancreas, adrenal glands and upper pole left kidney appear normal. ??The gallbladder is surgically absent. Osseous structures: There are stable degenerative changes in the spinal column. Procedure Note Jeremías Watson MD - 07/23/2020 Date: 07/23/2020 12:34 AM Exam: CTA CHEST Comparison: CT chest dated 03/14/2019. Technique: Thin section images were obtained of the chest with a CTApulmonary embolism protocol and with IV contrast. 80 ml of Isovue-370 thruan existing IV site. 3-D volume rotational vascular reconstructions.Coronal, sagittal and coronal 3D MIP reconstructions. A dose loweringtechnique was used for this procedure, which may include, but is notlimited to, dose reduction technique, automated exposure control, the useof iterative reconstruction, and ALARA (As Low As Reasonably Achievable)/Image gently techniques. History: Whole-body ache. Weakness. Shortness of breath. Findings: CHEST: There are partially calcified nodules in the thyroid. Wouldconsider thyroid ultrasound in the near future. The heart size is normalwithout pericardial effusion. There is scattered calcified coronaryarterial disease. The thoracic aorta appears normal without aneurysm nordissection. The pulmonary arteries are patent without evidence ofpulmonary embolism. There is a stable 12 mm lymph node in the anteriormediastinum. There is no adenopathy elsewhere. The tracheal and main bronchial airways are patent. There are noconsolidations nor pleural effusions. There are stable small nodules inthe posterior medial left lung base. The largest nodule measures 5.8 mm.There is vascular congestion. Visualized upper abdomen: The visualized portions of the liver, spleen,pancreas, adrenal glands and upper pole left kidney appear normal. Thegallbladder is surgically absent. Osseous structures: There are stable degenerative changes in the spinalcolumn. Impression: 1. Mild vascular congestion, but no pulmonary edema. 2. No pulmonary embolism. 3. Stable 12 mm nodule in the anterior mediastinum. 4. Partially calcified thyroid nodules. Would consider thyroidultrasound in the near future. 5. Stable small nodules in the posterior medial left lung base. Nofollow-up is necessary in a low risk patient. Optional CT chest isadvised at one year in a high-risk patient according to the Fleischnercriteria. Referred By: Interpreted By: Jeremías Watson MD, 07/23/2020 1:21 AM Jaswinder Gaytan MD CT Final Result * INFLUENZA A & B (07/22/2020 11:52 PM CDT) SPECIMEN TYPE NASAL 07/23/2020 12:08 AM CDT [facility] INFLUENZA A NEGATIVE NEGATIVE 07/23/2020 12:29 AM CDT [facility] INFLUENZA B NEGATIVE NEGATIVE 07/23/2020 12:29 AM CDT [facility] Comment: Interpretation: Negative for Influenza [...] testing with RT-PCR requires a separate order. NASAL STRUCTURE / Unknown 07/22/2020 11:52 PM CDT us Jaswinder Gaytan MD MICROBIOLOGY - GENERAL ORDERABL ES Final Result [facility] [address] [place] [id number], [place] [phone] * LACTIC ACID (07/22/2020 11:38 PM CDT) LACTIC ACID VENOUS 1.3 0.4 - 2.0 MMOL/L 07/23/2020 12:48 AM CDT [facility] 07/22/2020 11:3 8 PM CDT us Jaswinder Gaytan MD LABORATORY Final Result Performing Organization Address City/[facility]/ZIP Co de Phone Number [facility] [address] [place] [id number], [place] [phone] * PROCALCITONIN (PCT) (07/22/2020 11:38 PM CDT) Procalcitonin <0.05 <0.5 NG/ML 07/23/2020 12:51 AM CDT [facility] 07/22/2020 11:3 8 PM CDT us Jaswinder Gaytan MD LABORATORY Final Result Performing Organization Address City/[facility]/ZIP Co de Phone Number [facility] [address] [place] [address], [place] [phone] * (ABNORMAL) Blood gas, arterial (07/22/2020 11:35 PM CDT) TIME TEST WAS PERFORMED: 140 07/23/2020 1:44 AM CDT [facility] SAMPLE TYPE ARTERIAL 07/23/2020 1:44 AM [facility] DRAW SITE RT RADIAL 07/23/2020 1:44 AM [facility] ROSALINDA TEST ROSALINDA TEST PERFORMED 07/23/2020 1:44 AM [facility] ENTERPRISE INTEGRATION ARCHITECT CODE 537,226 07/23/2020 1:44 AM T [facility] FIO2 21.0 % 07/23/2020 3:21 AM T [facility] PH ARTERIAL 7.39 7.35 - 7.45 07/23/2020 3:21 AM [facility] PCO2 47.1(H) 35 - 45 MM HG 07/23/2020 3:21 AM [facility] PO2 79.8(L) 80 - 100 MM HG 07/23/2020 3:21 AM T [facility] BICARB ARTERIAL 28.3(H) 21 - 28 MEQ/L 07/23/2020 3:21 AM [facility] TCO2 29.7 MEQ/L 07/23/2020 3:21 AM [facility] BE/BASE EXCESS 2.6(H) 0 - 2 MEQ/L 07/23/2020 3:21 AM T [facility] HEMOGLOBIN BLOOD GAS 12.4 12.0 - 16.0 G/DL 07/23/2020 3:21 AM [facility] % O2 HEMOGLOBIN ARTERIAL 94.9(L) 95 - 100 % 07/23/2020 3:21 AM [facility] CARBON MONOXIDE 0.8 <3.0 % 3:21 AM [facility] METHEMOGLOBIN 0.6 0.4 - 1.5 % 07/23/2020 3:21 AM CDT [facility] O2 CONTENT 16.6 15 - 22 VOL% 07/23/2020 3:21 AM CDT [facility] AADO2 16.1 07/23/2020 3:21 AM CDT [facility] P/F RATIO (TIDAL VOL CALC) 380 07/23/2020 3:21 AM CDT [facility] 07/22/2020 11:3 5 PM CDT us Jaswinder Gaytan MD LABORATORY Final Result [facility] [address] [place] [address], [place] [phone] * TROPONIN, QUANT (07/22/2020 11:34 PM CDT) TROPONIN I <0.015 <0.045 ng/mL. 07/23/2020 12:25 AM CDT [facility] Comment: HIGH DOSES OF BIOTIN MAY INTERFERE WITH THIS TEST RESULT. CORRELATION TO CLINICAL HISTORY AND PRESENTATION RECOMMENDED. 07/22/2020 11:3 4 PM CDT us Jaswinder Gaytan MD LABORATORY Final Result [facility] [address] [place] [address], [place] [phone] * CULTURE, BACTERIA, BLOOD (07/22/2020 11:34 PM CDT) SPEC DESCRIPTION BLOOD 07/22/2020 11:35 PM CDT [facility] SPECIAL REQUESTS NO SPECIAL REQUEST 07/22/2020 11:35 PM CDT [facility] CULTURE RESULT NO GROWTH 5 DAYS 07/28/2020 9:07 AM CDT [facility] BLOOD SPECIMEN OBTAINED FOR BLOOD CULTURE / Unknown 07/22/2020 11:34 PM CDT 07/23/2020 12:02 AM CDT Jaswinder Gaytan MD MICROBIOLOGY - GENERAL ORDERABL ES Final Result Performing Organization Address [facility]/ZIP Co de Phone Number [facility] [address] [place] [address], * CULTURE, BACTERIA, BLOOD (07/22/2020 11:34 PM CDT) SPEC DESCRIPTION BLOOD 07/22/2020 11:35 PM CDT [facility] SPECIAL REQUESTS NO SPECIAL REQUEST 07/22/2020 11:35 PM CDT [facility] CULTURE RESULT NO GROWTH 5 DAYS 07/28/2020 9:07 AM CDT [facility] BLOOD SPECIMEN OBTAINED FOR BLOOD CULTURE / Unknown 07/22/2020 11:34 PM CDT 07/23/2020 12:01 AM CDT Jaswinder Gaytan MD MICROBIOLOGY - GENERAL ORDERABL ES Final Result Performing Organization Address City/[facility]/ZIP Co de Phone Number [facility] [address] [place] [address], * ECG 12 lead (07/22/2020 10:46 PM CDT) 07/22/2020 10:[address] [facility] - 07/23/2020 8:43 PM CDT ?[facility] ? [address], [place] ? Test Date: ?2020-07-22 Pat Name: ? MOHSEN MARIE ?Department: ? Room: ? Gender: ? Female ? 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 MJ : ?[id number] ? Requested By: MAXI CALDERA Order Number: [id number] ? Reading MD: ?? Ramon Byrd ? Measurements Intervals ?Froid ? Rate: ? 100 ?P: ?4 MS: ? 143 ?QRS: ?0 QRSD: ? 88 ? T: ?48 QT: ? 330 ? QTc: ?427 ? Interpretive Statements SINUS TACHYCARDIA ABNORMAL RHYTHM ECG Compared to ECG 06/25/2020 16:11:39 Sinus rhythm no longer present Procedure Note Ramon Byrd MD - 07/23/[address] 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: JOHN : [id number] Requested By: MAXI CALDERA Order Number: [id number] Reading MD: Ramon Byrd Measurements Intervals Froid Rate: 100 P: 4 MS: 143 QRS: 0 QRSD: 88 T: 48 QT: 330 QTc: 427 Interpretive Statements SINUS TACHYCARDIA ABNORMAL RHYTHM ECG Compared to ECG 06/25/2020 16:11:39 Sinus rhythm no longer present us Maxi MCKEON ECG ORDERABLES Final Resul t Performing Organization Address City/State/[facility] Co de Phone Number [facility] * XR CHEST PORTABLE (07/22/2020 10:41 PM CDT) Anatomical Region Laterality Modality Chest Radiographic Lizeth ging 07/22/2020 10:4 7 PM CDT Impressions 07/22/2020 10:48 PM CDT Impression: 1. ??Diffuse vascular congestion. 2. ??Right lower lobe atelectasis versus pneumonia. Referred By: ?? Interpreted By: Jeremías Watson MD, 07/22/2020 10:47 PM Narrative 07/22/2020 10:48 PM CDT Date: 07/22/2020 10:26 PM Exam: XR CHEST PORTABLE Comparison: Chest radiography dated 06/25/2020, 11/10/2019. Technique: Single view chest. History: Shortness of breath. ??Bodyaches. ??Weakness. Findings: The cardiac silhouette is obscured by the patient's pannus. ??There is diffuse vascular congestion. ??The upper lungs are clear. ??The lower lung rincon are not well visualized due to the overlapping pannus. ??There is a possible opacity in the right lung base that could present atelectasis and/or pneumonia. ??There is no pneumothorax. Procedure Note Jeremías Watson MD - 07/22/2020 Date: 07/22/2020 10:26 PM Exam: XR CHEST PORTABLE Comparison: Chest radiography dated 06/25/2020, 11/10/2019. Technique: Single view chest. History: Shortness of breath. Bodyaches. Weakness. Findings: The cardiac silhouette is obscured by the patient's pannus.There is diffuse vascular congestion. The upper lungs are clear. Thelower lung rincon are not well visualized due to the overlapping pannus.There is a possible opacity in the right lung base that could presentatelectasis and/or pneumonia. There is no pneumothorax. Impression: 1. Diffuse vascular congestion. 2. Right lower lobe atelectasis versus pneumonia. Referred By: Interpreted By: Jeremías Watson MD, 07/22/2020 10:47 PM Maxi MCKEON [facility] Final Resul t * BNP (07/22/2020 10:23 PM CDT) B TYPE NATRIURETIC PEPTIDE 11 <100 PG/ML 07/23/2020 12:55 AM CDT [facility] 07/22/2020 10:2 3 PM CDT Maxi MCKEON LABORATORY Final Resul t [facility] [address] [place] [address], [place] [phone] * (ABNORMAL) COMPREHENSIVE METABOLIC PANEL (07/22/2020 10:23 PM CDT) Pathologist [facility] GLUCOSE 201(H) 70 - 99 MG/DL 07/22/2020 11:31 PM CDT [facility] BUN 15 7 - 18 MG/DL 07/22/2020 11:31 PM CDT [facility] CREATININE S/P/B 0.86 0.55 - 1.02 MG/DL 07/22/2020 11:31 PM CDT [facility] SODIUM S/P/B 137 136 - 145 MMOL/L 07/22/2020 11:31 PM CDT [facility] POTASSIUM S/P/B 4.4 3.5 - 5.1 MMOL/L 07/22/2020 11:31 PM CDT [facility] CHLORIDE S/P/B 104 100 - 108 MMOL/L 07/22/2020 11:31 PM CDT [facility] CO2 30.6 21 - 32 MMOL/L 07/22/2020 11:31 PM CDT [facility] CALCIUM S/P/B 9.3 8.5 - 10.1 MG/DL 07/22/2020 11:31 PM CDT [facility] BILIRUBIN TOTAL S/P/B 0.3 0.2 - 1.2 MG/DL 07/22/2020 11:31 PM CDT [facility] Comment: THIS ASSAY IS NOT RECOMMENDED FOR PATIENTS UNDERGOING TREATMENT WITH ELTROMBOPAG DUE TO THE POTENTIAL FOR FALSELY ELEVATED RESULTS. TOTAL PROTEIN S/P/B 8.1 6.4 - 8.2 G/DL 07/22/2020 11:31 PM CDT [facility] ALBUMIN S/P/B 3.2(L) 3.4 - 5.0 G/DL 07/22/2020 11:31 PM CDT [facility] AST 17 15 - 37 U/L 07/22/2020 11:31 PM CDT [facility] ALT 25 14 - 55 U/L 07/22/2020 11:31 PM CDT [facility] ALKALINE PHOSPHATASE S/P/B 93 50 - 136 U/L 07/22/2020 11:31 PM CDT [facility] ANION GAP 2.4(L) 5 - 15 MMOL/L 07/22/2020 11:31 PM CDT [facility] BUN CREATININE RATIO 17.5 6 - 26 07/22/2020 11:31 PM CDT [facility] A/G RATIO 0.7(L) 1.0 - 2.0 RATIO 07/22/2020 11:31 PM CDT [facility] EGFR NON-AFR. AMER. 71(L) >90 ML/MIN/1.7 3 M2 07/22/2020 11:31 PM CDT [facility] EGFR AFR. AMER. 83(L) >90 ML/MIN/1.7 3 M2 07/22/2020 11:31 PM CDT [facility] Comment: NOTE: eGFR is not calculated for patients <18 years of age. This is an estimated GFR (CKD EPI) and should not be used for calculating drug doses. 07/22/2020 10:2 3 PM CDT us Maxi MCKEON LABORATORY Final Resul t [facility] [address] [place] [address], * (ABNORMAL) CBC W/DIFF AUTOMATED (07/22/2020 10:23 PM CDT) [facility] Signature WBC 12.2(H) 4.5 - 11.0 x10'3/uL 07/22/2020 11:09 PM CDT [facility] RBC 4.35 4.20 - 5.40 x10'6/uL 07/22/2020 11:09 PM CDT [facility] HGB 12.8 12.0 - 16.0 G/DL 07/22/2020 11:09 PM CDT [facility] HCT 40.3 38.0 - 48.0 % 07/22/2020 11:09 PM CDT [facility] MCV 92.6 81.0 - 99.0 FL 07/22/2020 11:09 PM CDT [facility] MCH 29.4 27.0 - 31.0 PG 07/22/2020 11:09 PM CDT [facility] MCHC 31.8(L) 32.0 - 36.0 G/DL 07/22/2020 11:09 PM CDT [facility] RDW 14.5 11.5 - 14.5 % 07/22/2020 11:09 PM CDT [facility] PLT 287 130 - 400 x10'3/uL 07/22/2020 11:09 PM CDT [facility] MPV 10.1 9.3 - 12.2 FL 07/22/2020 11:09 PM CDT [facility] DIFFERENTIAL TYPE AUTOMATED DIFFERENTIAL 07/22/2020 11:09 PM CDT [facility] NEUTROPHILS % 60.9 % 07/22/2020 11:09 PM CDT [facility] LYMPHOCYTES % 27.5 % 07/22/2020 11:09 PM CDT [facility] MONOCYTES % 7.5 % 07/22/2020 11:09 PM CDT [facility] EOSINOPHILS 3.3 % 07/22/2020 11:09 PM CDT [facility] BASOPHILS 0.5 % 07/22/2020 11:09 PM CDT [facility] IMMATURE GRANS % 0.3 % 07/23/19 11:09 PM CDT [facility] ABS. NEUTROPHILS TOTAL 7.41 1.80 - 7.70 x10'3/uL 07/22/2020 11:09 PM CDT [facility] ABS. LYMPHOCYTES 3.35 1.00 - 4.80 x10'3/uL 07/22/2020 11:09 PM CDT [facility] ABS. MONOCYTES 0.91(H) 0.24 - 0.86 x10'3/uL 07/22/2020 11:09 PM CDT [facility] ABS. EOSINOPHILS 0.40(H) 0.04 - 0.36 x10'3/uL 07/22/2020 11:09 PM CDT [facility] ABS. BASOPHILS 0.06 0.01 - 0.08 x10'3/uL 07/22/2020 11:09 PM CDT [facility] ABS. IMMATURE GRANULOCYTES 0.04 0.00 - 0.49 x10'3/uL 07/22/2020 11:09 PM CDT [facility] 07/22/2020 10:2 3 PM CDT us Maxi Caldera PA LABORATORY Final Resul t [facility] [address] [place] [address], [place] [phone] documented in this encounter Visit Diagnoses Diagnosis Bilateral sacroiliitis (CMS/HCC)- Primary Dyspnea Other dyspnea and respiratory abnormality documented in this encounter Administered Medications Inactive Administered Medications - up to 3 most recent administrations Medication Order MAR Action Action Date Dose Rate Site fentaNYL (SUBLIMAZE) injection 50 mcg 50 mcg, Intravenous, Once, 1 dose, On Mon07/22/20 at 2345, If intravenous (IV) route has been ordered, give over 1-2 minutes. Given 07/22/2020 11:56 PM CDT 50 mcg HYDROcodone-acetaminophen (NORCO) 5-325 MG tablet 1 tablet 1 tablet, Oral, Once, 1 dose, On Valeri 07/23/20 at 0430, Maximum dose of acetaminophen is 4000 mg from all sources in 24 hours. Given 07/23/2020 4:24 AM CDT 1 tablet iopamidol (ISOVUE-370) 76 % injection 80 mL 80 mL, Intravenous, IMG once as needed, Contrast, 1 dose, Starting on Valeri 07/23/20 at 0112, Until Valeri 07/23/20 at 0112 Given 07/23/2020 1:12 AM CDT 80 mLs Right Arm ondansetron (ZOFRAN) injection 4 mg 4 mg, Intravenous, Once, 1 dose, On Mon07/22/20 at 2345, IV push over 2-5 minutes. Given 07/22/2020 11:56 PM CDT 4 mg sodium chloride 0.9% bolus infusion SOLN 500 mL 500 mL, Intravenous, Administer over 15 Minutes, Once, 1 dose, On Mon07/22/20 at 2345 New Bag 07/22/2020 11:57 PM CDT 500 mLs documented in this encounter Active and Recently Administered Medications Times are shown in CDT. Scheduled Medication Order 07/21/2020 07/22/2020 07/23/2020 fentaNYL (SUBLIMAZE) injection 50 mcg (COMPLETED) 50 mcg, Intravenous, Once, 1 dose, On Mon07/22/20 at 2345, If intravenous (IV) route has been ordered, give over 1-2 minutes. 2356 (Given - Provider: Radha Deluna RN) HYDROcodone-acetaminophen (NORCO) 5-325 MG tablet 1 tablet (COMPLETED) 1 tablet, Oral, Once, 1 dose, On Valeri 07/23/20 at 0430, Maximum dose of acetaminophen is 4000 mg from all sources in 24 hours. 0424 (Given - Provid er: Radha Deluna RN) ondansetron (ZOFRAN) injection 4 mg (COMPLETED) 4 mg, Intravenous, Once, 1 dose, On Mon07/22/20 at 2345, IV push over 2-5 minutes. 2356 (Given - Provider: Radha Deluna RN) sodium chloride 0.9% bolus infusion SOLN 500 mL (COMPLETED) 500 mL, Intravenous, Administer over 15 Minutes, Once, 1 dose, On Mon07/22/20 at 2345 2357 (New Bag - Provider: Radha Deluna RN) 0113 (Infusion Stop Time - Provider: Radha Deluna RN) PRN Medication Order 07/21/2020 07/22/2020 07/23/2020 iopamidol (ISOVUE-370) 76 % injection 80 mL (COMPLETED) 80 mL, Intravenous, IMG once as needed, Contrast, 1 dose, Starting on Valeri 07/23/20 at 0112, Until Valeri 07/23/20 at 0112 0112 (Given - Provid er: Jasmyn Araiza, RTR) documented in this encounter Care Teams Bone Glue Maker Relationship Specialty Start Date End Date Justen Gale MD [facility]. [address] [place] [address] PCP - General FAMILY PRACTICE 08/20/17 Meena Bansal MD [address] [facility] [place] [address] José Luis Director [employer] CARDIOVASCULAR DISEASE 04/24/16 documented as of this encounter
--- OUTSIDE RECORDS SUMMARY | 2024-04-26 02:41 | XMS_ITS | Encounter Summary ---
Author Organization [facility] Address [address] [place] [address]. 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 [address] [address] PCP - General FAMILY PRACTICE 08/20/17 Meena Bansal MD [facility] [address] [address] José Luis Manager Immunology CARDIOVASCULAR DISEASE 04/24/16 documented as of this encounter
--- OUTSIDE RECORDS SUMMARY | 2024-04-26 02:41 | XMS_ITS | Encounter Summary ---
Author Organization [facility] Address [address] [place] [address]. [place] [address] [place] [address] Care Team Providers Care [employer] Main Fitter Name Role Phone Meena Bansal MD Unavailable [phone] Justen Gale MD Primary Care Provider [phone] Reason for Referral * Imaging (Emergency) - Closed Specialty Diagnoses / Procedures Referred By Elyssa benavides Referred To Contact RADIOLOGY Procedures CT ABD+PEL W IV CON ONLY Josep Jaimes PA-C [address] [facility] [address] [place] [address] Phone: tel: fax: Referral ID Status Reason Start Date Expiration Date Visits Re quested Visits Authorized [id number] Closed 09/05/2019 10/05/2020 1 1 Reason for Visit * Reason Comments Suspected Coronavirus (Covid-19) Encounter Details Date Type Department Care Team (Late st Contact Info) Description 09/05/2019 5:59 PM CDT - 09/05/2019 10:08 PM CDT Emergency [facility] [place] [address] Josep Jaimes PA-C [address] [facility] [address] [place] [address] Suspected Coronavirus (Covid-19) Discharge Disposition: Home or [...] Sexual Orientation Straight 03/18/2018 3: [address] COVID-19 Exposure Response Date Recorded In the last month, have you been in contact with someone who was confirmed or suspected to have Coronavirus / COVID-19? No / Unsure 09/05/2019 6:09 PM CDT documented as of this encounter Last Filed Vital Signs Vital Sign Reading Time Taken Comments Blood Pressure 115/63 09/05/2019 9:49 PM CDT Pulse 82 09/05/2019 9:49 PM CDT Temperature 36.8 ??C (98.2 ??F) 09/05/2019 6:09 PM CD T Respiratory Rate 19 09/05/2019 9:49 PM CDT Oxygen Saturation 94% 09/05/2019 9:49 PM CDT Inhaled Oxygen Concentration - - Weight 133.8 kg (295 lb) 09/05/2019 6:09 PM CDT Height 154.9 cm (5' 1 ) 09/05/2019 6:09 PM CDT Body Mass Index 55.74 09/05/2019 6:09 PM CDT documented in this encounter Functional [...] 5:09 AM CDT Farzaneh Morgan RN Active documented as of this encounter Mental Status * Because of a physical, mental, or emotional condition, do you have serious difficulty concentrating, remembering, or making decisions? Answer Entry Date Author Status No 09/09/2018 5:09 AM CDT Farzaneh Morgan RN Active documented in this encounter Discharge Instructions * Discharge Instructions* Josep Jaimes PA-C - 09/05/2019 9:44 PM CDT Your symptoms are suggestive of a viral infection but with the ongoing pandemic you could have coronavirus (COVID-19). COVID-19 is a viral infection which primarily consists of fever, cough, and shortness of breath. Some patients, primarily the elderly and those with compromised immune systems, canhave worsening symptoms which would require admission. Many individuals will simply have cold and flu like symptoms, feeling unwell up to 7-14 days. You were tested today for COVID-19. While awaitingtest results it is important to quarantine yourself at home for 14 days and until you are symptom free for 72 hours. Practice good hand hygiene and cover sneezes and coughs with your arm as opposed to your hands. Wash hands often. Over the counter medications for cold and cough may be helpful. You should treat the symptoms with lots of rest and hydration. Additionally you can use tylenol for fever. If you begin to have worsening symptoms such as significant shortness of breath, chest pain, or other concerning symptoms please return to the Emergency Department but please call ahead first if you can. COVID-19 Symptoms, Spread and Prevention: https://www.dhs.[place].gov/publications/c34607.pdf Self-Isolation for Individuals Being Evaluated for COVID-19: https://www.dhs.[place].gov/publications/g38651.pdf * Attachments The following attachments cannot be sent through Care Everywhere. * Viral Syndrome Discharge Instructions (Portuguese) * Nausea and Vomiting Discharge Instructions, Adult (Portuguese) documented in this encounter Medications at Time of Discharge exemestane 25 MG tablet Take 1 tablet by mouth daily with supper. Give with food 3 8 insulin glargine (LANTUS SOLOSTAR) 100 UNIT/ML injection [...] by mouth nightly at bedtime. 3 8 amitriptyline 25 MG tablet Take 25 mg by mouth nightly at bedtime. 10/13/19 24 diclofenac EC 75 MG tablet Take 1 tablet (75 mg total) by mouth 2 (two) times daily as needed (Pain. Please take with food.). 60 tablet 9 06/26/19 21 hydrocodone-acetami nophen (NORCO) 5-325 MG tabletIndications:A cute Pain < 7 Day Supply Take 1 tablet by mouth every 6 (six) hours as needed. Indications: Acute Pain < 7 Day Supply 10 tablet 0 06/26/19 21 lisinopril 20 MG tablet Take 20 mg by mouth daily. 10/13/19 24 ondansetron 4 MG disintegrating tablet Take 1 tablet (4 mg total) by mouth every 8 (eight) hours as needed for Nausea. 15 tablet 0 06/26/19 21 oxybutynin 5 MG tablet Take 5 mg by mouth 2 (two) times daily. 10/13/19 24 documented as of this encounter ED Notes * Jane Perez RN - 09/05/2019 9:15 PM CDT Pt reporting pain. ED LINDA De Jesus made aware by esteban law. * Jane Perez RN - 09/05/2019 9:00 PM CDT covid swab collected, labeled, and bagged by kai mccracken. Swab taken to nemesio blood. Pt tolerated well. * Jane Perez RN - 09/05/2019 7:43 PM CDT Pt to CT with kai mccracken. * Josep Jaimes PA-C - 09/05/2019 6:51 PM CDT Chief Complaint Chief Complaint Patient presents with ??? Suspected Coronavirus (Covid-19) History of Present Illness Is a 64-year-old female presents to the ED with report of concern for possible COVID-19. Patient states she developed fatigue, congestion, nausea, vomiting, shortness of breath and abdominal cramping4-5 days ago. She states her symptoms worsened today and she went to her PCPs office who and request that she get COVID-19 testing. Patient was sent to the ED from urgent care due to her reported symptoms. Denies recent travel and denies exposure to known COVID-19. History of hypertension, prior DVT, PE treated with eliquis. Medical History ALLERGIES: Allergies Allergen Reactions ??? [...] every 8 (eight) hours asneeded for Nausea. 09/05/19 Yes Josep Jaimes PA-C amitriptyline 25 MG tablet Take 25 mg by mouth nightly at bedtime. Doc Abstract diclofenac EC 75 MG tablet Take 1 tablet (75 mg total) by mouth 2 (two) times daily as needed (Pain. Please take with food.). 01/17/19 Jaswinder Gaytan MD exemestane 25 MG tablet Take 25 mg by mouth daily with supper. Give with food 08/09/17 Doc Abstract hydrocodone-acetaminophen (NORCO) 5-325 MG tablet Take 1 tablet by mouth every 6 (six) hours as needed. Indications: Acute Pain < 7 Day Supply 07/01/19 Jimmie Ceron PA-C insulin glargine (LANTUS SOLOSTAR) 100 UNIT/ML injection [...] 20 mg by mouth daily. Doc Abstract oxybutynin 5 MG tablet Take 5 mg by mouth 2 (two) times daily. Doc Abstract ROPINIROLE HYDROCHLORIDE 5 MG Tab Take 5 mg by mouth nightly at bedtime. 07/14/17 Doc Abstract PAST MEDICAL HISTORY: Past Medical History: Diagnosis Date ??? Arthritis ??? Blood clot in vein ??? Breast cancer (CMS/HCC) ??? Cancer (CMS/HCC) ??? Diabetes mellitus (CMS/HCC) ??? Disease of thyroid gland ??? Hypertension ??? Kidney stones ??? Neuropathy ??? Restless leg syndrome ??? Spinal headache [...] Tobacco Use ??? Smoking status: Former Smoker Last attempt to quit: 03/23/1977 Years since quittin.4 ??? Smokeless tobacco: Never Used Substance Use Topics ??? Alcohol use: No ??? Drug use: No Review of Systems Review of Systems Constitutional: Positive for chills and fatigue. Negative for activity change and fever. HENT: Negative for congestion and rhinorrhea. Eyes: Negative for visual disturbance. Respiratory: Positive for shortness of breath. Negative for wheezing. Cardiovascular: Negative for chest pain. Gastrointestinal: Positive for abdominal pain, nausea and vomiting. Negative for diarrhea. Genitourinary: Negative for dysuria. Musculoskeletal: Negative for back pain. Skin: Negative for rash. Allergic/Immunologic: Negative for environmental allergies. Neurological: Negative for dizziness, light-headedness and headaches. Psychiatric/Behavioral: Negative for suicidal ideas. Physical Exam Filed Vitals: 09/05/19 1809 09/05/19 1940 BP: 137/84 112/65 Pulse: 93 Resp: Temp: 98.2 ??F (36.8 ??C) TempSrc: Oral SpO2: 95% Weight: 133.8 kg (295 lb) Height: 5' 1 (1.549 m) Physical Exam Constitutional: She is oriented to person, place, and time. She appears well- developed and well-nourished. No distress. HENT: Nose: Nose normal. Mouth/Throat: Oropharynx is clear and moist. Eyes: EOM are normal. Neck: Normal range of motion. Cardiovascular: Normal rate, regular rhythm and normal heart sounds. Pulmonary/Chest: Effort normal and breath sounds normal. No respiratory distress. She has no wheezes. She has no rales. She exhibits no tenderness. Abdominal: Soft. Bowel sounds are normal. There is tenderness. There is no rebound and no guarding. Generalized lower abdominal tenderness palpation. No rebounding or guarding. No flank or CVA tenderness. Musculoskeletal: Normal range of motion. Lymphadenopathy: She has no cervical adenopathy. Neurological: She is alert and oriented to person, place, and time. Skin: No rash noted. She is not diaphoretic. Psychiatric: She has a normal mood and affect. Nursing note and vitals reviewed. Diagnostic Studies / Procedures ELECTROCARDIOGRAMS: Results for orders placed or performed during the hospital encounter of 09/05/19 ECG [address] [facility] Test Date: 2019-09-05 Pat Name: MOHSEN MARQUES Department: Room: [place] [address] Gender: Female Psychiatric Nurse: ISABELLA : 1955 Requested By: JOSEP JAIMES Order Number: [id number] Reading MD: Measurements Intervals [place] Rate: 83 P: 42 CO: 126 QRS: 4 QRSD: 81 T: 37 QT: 345 QTc: 406 Interpretive Statements SINUS RHYTHM Compared to ECG 03/14/2019 19:17:02 No significant changes EKG shows sinus rhythm heart rate 83 beats a minute, no ischemic changes LABORATORY STUDIES: Results for orders placed or performed during the hospital encounter of 09/05/19 URINALYSIS Result Value Ref Range Specimen Type URINE CLEAN CATCH COLOR (U) YELLOW TRANSPARENCY CLEAR Specific [place] (U) 1.042 (H) 1.001 - 1.030 U PH 5.0 5.0 - 9.0 LEUKOCYTE ESTERASE TRACE (A) NEGATIVE NITRITES NEGATIVE NEGATIVE PROTEIN(U) NEGATIVE <30 MG/DL URINE GLUCOSE NEGATIVE NEGATIVE MG/DL U KETONES NEGATIVE NEGATIVE MG/DL UROBILINOGEN NEGATIVE NEGATIVE MG/DL BILIRUBIN (U) NEGATIVE NEGATIVE MG/DL BLOOD SMALL (A) NEGATIVE CULTURE & SENSITIVITY INDICATED? SPECIMEN SETUP FOR CULTURE SQUAMOUS EPITHELIALS RARE /LPF MUCOUS RARE /LPF HYALINE CASTS RARE /LPF WBC/HPF 2 <6 /HPF RBC/HPF <1 <6 /HPF BNP Result Value Ref Range B TYPE NATRIURETIC PEPTIDE 8 <100 PG/ML CBC W/DIFF AUTOMATED Result Value Ref Range WBC 14.1 (H) 4.5 - 11.0 x10'3/uL RBC 4.61 4.20 - 5.40 x10'6/uL HGB 13.3 12.0 - 16.0 G/DL HCT 42.1 38.0 - 48.0 % MCV 91.3 81.0 - 99.0 FL MCH 28.9 27.0 - 31.0 PG MCHC 31.6 (L) 32.0 - 36.0 G/DL RDW 14.1 11.5 - 14.5 % PLT 334 130 - 400 x10'3/uL MPV 10.0 9.3 - 12.2 FL DIFFERENTIAL TYPE AUTOMATED DIFFERENTIAL NEUTROPHILS 67.5 % LYMPHOCYTES 22.8 % MONOCYTES 7.3 % EOSINOPHILS 1.7 % BASOPHILS 0.3 % IMMATURE GRANS 0.4 % ABS. NEUTROPHILS TOTAL 9.49 (H) 1.80 - 7.70 x10'3/uL ABS. LYMPHOCYTES 3.21 1.00 - 4.80 x10'3/uL ABS. MONOCYTES 1.03 (H) 0.24 - 0.86 x10'3/uL ABS. EOSINOPHILS 0.24 0.04 - 0.36 x10'3/uL ABS. BASOPHILS 0.04 0.01 - 0.08 x10'3/uL ABS. IMMATURE GRANULOCYTES 0.05 0.00 - 0.49 x10'3/uL COMPREHENSIVE METABOLIC PANEL Result Value Ref Range GLUCOSE 157 (H) 70 - 99 MG/DL BUN 21 (H) 7 - 18 MG/DL CREATININE S/P/B 0.97 0.55 - 1.02 MG/DL SODIUM 136 136 - 145 MMOL/L POTASSIUM 4.0 3.5 - 5.1 MMOL/L CHLORIDE S/P/B 100 100 - 108 MMOL/L CO2 30.1 21 - 32 MMOL/L CALCIUM 10.3 (H) 8.5 - 10.1 MG/DL BILIRUBIN TOTAL S/P/B 0.4 0.2 - 1.2 MG/DL TOTAL PROTEIN 9.1 (H) 6.4 - 8.2 G/DL ALBUMIN S/P/B 3.5 3.4 - 5.0 G/DL AST 22 15 - 37 U/L ALT 26 14 - 55 U/L ALK PHOS 102 50 - 136 U/L ANION GAP 5.9 5 - 15 MMOL/L BUN CREATININE RATIO 21.6 6 - 26 A/G RATIO 0.6 (L) 1.0 - 2.0 RATIO eGFR Non-Afr. Amer. 62 (L) >90 ML/MIN/1.73 M2 eGFR Afr. Amer. 72 (L) >90 ML/MIN/1.73 M2 LIPASE Result Value Ref Range LIPASE 125 73 - 393 UNITS/L TROPONIN, QUANT Result Value Ref Range TROPONIN I <0.015 <0.045 ng/mL. IMAGING STUDIES CT ABD+PEL W IV CON ONLY Final Result by User, [id number] (09/04 2014) EXAMINATION: CT Abdomen and Pelvis with contrast CLINICAL HISTORY: Abdominal pain. Possible COVID COMPARISON: 09/04/2018 TECHNIQUE: Computed tomography of the abdomen and [...] Reasonably Achievable) / Image Gently techniques. FINDINGS: Images of the lower chest reveal bibasilar atelectasis and scarring. Mitral annular calcifications. Status post cholecystectomy. Likely physiologic ectasia of the extrahepatic and central intrahepatic bile ducts. Tiny hypodensity in the right lobe of liver, possibly cysts. Focal fatty infiltration near the falciform ligament. Spleen, pancreas, and adrenal glands unremarkable. Right renal cyst. No hydronephrosis. Enhanced retroperitoneal vascular structures unremarkable. No bulky mesenteric or retroperitoneal lymphadenopathy. Stomach and small bowel loops nondilated. Normal appendix. Mild to moderate solid feces in the colon. Colonic diverticulosis. No free fluid or free air abdomen. Surgical changes of prior ventral hernia repair. Sigmoid diverticulosis. Bladder unremarkable. No pelvic ascites. Few pelvic vascular calcifications. No bulky pelvic or inguinal lymphadenopathy. Degenerative changes seen in the spine IMPRESSION: 1. No definite acute abnormalities identified in the abdomen or pelvis. 2. Diverticulosis. 3. Atherosclerosis. CHEST PORTABLE Final Result by User, [id number] (09/04 1928) Examination: Chest 1 view portable History: Shortness of breath DATE/TIME: 09/05/2019 6:45 PM Comparison: December 16, 2018 Technique: AP upright portable view of the chest was obtained. Findings: Heart size and mediastinal contours are normal. Ulnar vasculature within normal limits. No pulmonary consolidation, pleural effusion or pneumothorax. No acute osseous abnormality. Impression: No acute chest findings. Interpreted By: Osiel Vergara MD, 09/05/2019 7:27 PM ED Course / Medical Decision Making CBC shows white blood cell count of 14.1. CMP within normal, lipase within normal limit, troponin negative, BNP negative. UA has trace leukocyte esterase without elevated white blood cells. Denies urinary symptoms and she will not be treated for UTI at this time. Urine will be sent for culture. Chest X-ray shows no acute findings CT abd/pelvis: IMPRESSION: 1. No definite acute abnormalities identified in the abdomen or pelvis. 2. Diverticulosis. 3. Atherosclerosis. Patient does not require hospital admission. Symptoms may be due to COVID-19 and patient was testedfor COVID-19 while in the ED. Patient agreed with discharge plan to use Tylenol for pain or fever, drink plenty of fluids and use Zofran for nausea or vomiting if needed. Patient educated to self isolate until she is symptom free for 72 hours. Patient will recommend self-isolation to family and close contacts. Patient educated to follow-up with her PCP for further evaluation educated to return toED if symptoms change or worsen. Clinical Impression Viral illness (Primary) Abdominal pain Nausea & vomiting Disposition: Discharge Josep Jaimes PA-C [id number]/05/[id number] Cosigned by Shorty Alvarado MD at 09/05/2019 11:41 PM CDT * Maira Bocanegra RN - 09/05/2019 6:00 PM CDT Patient ambulatory to triage for possible COVID. Patient reports over the weekend, she developed lower abdominal pain/cramping, nausea, vomiting, shortness of breath, weakness, and headaches. Symptoms worsened today. Patient scheduled to get COVID testing tomorrow in [place], but was sent here by urgent care for further evaluation. documented in this encounter Plan of Treatment Not on file documented as of this encounter Procedures Procedure Name Priority Date/Time Associated Diagnosis Comments CORONAVIRUS (COVID 19) PCR Routine 09/05/2019 8:57 PM CDT HC URINALYSIS AUTO W/O MICRO STAT 09/05/2019 8:52 PM CDT URINE BACTERIA CULTURE Routine 0 8:[address] ABD+PEL W CON STAT 09/05/2019 7:47 PM CDT XR CHEST PORTABLE STAT 09/05/2019 7:2 5 PM CDT ECG 12-LEAD STAT 09/05/2019 7:13 PM CDT BNP Routine 09/05/2019 6:46 PM CDT TROPONIN, QUANT Routine 09/05/2019 6:46 PM CDT COMPREHENSIVE METABOLIC PANEL Routine 09/05/2019 6:04 PM CDT CBC W/DIFF AUTOMATED Routine 09/05/2019 6:04 PM CDT LIPASE Routine 09/05/2019 6:04 PM CDT documented in this encounter Results * CORONAVIRUS (COVID 19) PCR (09/05/2019 8:57 PM CDT) SPEC DESCRIPTION NASOPHARYNGEAL SWAB 09/05/2019 10:13 PM CDT [facility] CORONAVIRUS SARS COV 2 PCR (RESP) NEGATIVE NEGATIVE 09/06/2019 9:28 AM CDT [facility] Comment: NEGATIVE RESULTS DO NOT PRECLUDE SARS-CoV-2 INFECTION AND SHOULD NOT BE USED THE SOLE BASIS FOR PATIENT MANAGEMENT DECISIONS. NEGATIVE RESULTS MUST BE COMBINED WITH CLINICAL OBSERVATIONS, PATIENT HISTORY, AND EPIDEMIOLOGICAL INFORMATION. 09/05/2019 8:57 PM CDT Josep Jaimes PA-C MICROBIOLOGY - GENERAL ORDERABLES Final Result [facility] [address] [place] [address], [place] [phone] [id number] [facility] [address] [place] [address], [place] [phone] * CULTURE URINE (09/05/2019 8:52 PM CDT) SPEC DESCRIPTION URINE CLEAN CATCH 09/05/2019 10:33 PM CDT [facility] SPECIAL REQUESTS NO SPECIAL REQUEST 09/05/2019 10:33 PM CDT [facility] CULTURE RESULT NO GROWTH 2 DAYS 09/08/2019 8:09 AM CDT [facility] URINE SPECIMEN OBTAINED BY CLEAN CATCH PROCEDURE / Unknown 09/05/2019 8:52 PM CDT 09/05/2019 10:33 PM CDT us Josep Jaimes PA-C MICROBIOLOGY - GENERAL ORDERABLES Final Result [facility] [address] [place] [address], [place] [phone] * (ABNORMAL) URINALYSIS (09/05/2019 8:52 PM CDT) SPECIMEN TYPE URINE CLEAN CATCH 09/05/2019 8:47 PM CDT [facility] COLOR (U) YELLOW 09/05/2019 9:22 PM CDT [facility] TRANSPARENCY CLEAR 09/05/2019 9:22 PM CDT [facility] SPECIFIC GRAVITY (U) 1.042(H) 1.001 - 1.030 09/05/2019 9:22 PM CDT [facility] U PH 5.0 5.0 - 9.0 09/05/2019 9:22 PM CDT [facility] LEUKOCYTES (U) TRACE(A) NEGATIVE 09/05/2019 9:22 PM CDT [facility] NITRITES NEGATIVE NEGATIVE 09/05/2019 9:22 PM CDT [facility] PROTEIN (U) NEGATIVE <30 MG/DL 09/05/2019 9:22 PM CDT [facility] URINE GLUCOSE NEGATIVE NEGATIVE MG/DL 09/05/2019 9:22 PM CDT [facility] KETONES MG/DL (U) NEGATIVE NEGATIVE MG/DL 09/05/2019 9:22 PM CDT [facility] UROBILINOGEN NEGATIVE NEGATIVE MG/DL 09/05/2019 9:22 PM CDT [facility] BILIRUBIN (U) NEGATIVE NEGATIVE MG/DL 09/05/2019 9:22 PM CDT [facility] BLOOD (U) SMALL(A) NEGATIVE 09/05/2019 9:22 PM CDT [facility] CULTURE & SENSITIVITY INDICATED? SPECIMEN SETUP FOR CULTURE 09/05/2019 9:22 PM CDT [facility] SQUAMOUS EPITHELIALS RARE /LPF 09/05/2019 9:22 PM CDT [facility] MUCUS RARE /LPF 09/05/2019 9:22 PM CDT [facility] HYALINE CASTS RARE /LPF 09/05/2019 9:22 PM CDT [facility] WBC/HPF 2 <6 /HPF 09/05/2019 9:22 PM CDT [facility] RBC/HPF <1 <6 /HPF 09/05/2019 9:22 PM CDT [facility] URINE SPECIMEN OBTAINED BY CLEAN CATCH PROCEDURE / Unknown 09/05/2019 8:52 PM CDT Josep Jaimes PA-C URINE ORDERABLES Final Result [facility] [address] [place] [address], [place] [phone] * CT ABD+PEL W IV CON ONLY (09/05/2019 7:47 PM CDT) Anatomical Region Laterality Modality Abdomen Computed Tomogra phy 09/05/2019 8:04 PM CDT Impressions 09/05/2019 8:14 PM CDT IMPRESSION: 1. No definite acute abnormalities identified in the abdomen or pelvis. 2. Diverticulosis. 3. Atherosclerosis. Narrative 09/05/2019 8:14 PM CDT EXAMINATION: CT Abdomen and Pelvis with contrast CLINICAL HISTORY: Abdominal pain. Possible COVID COMPARISON: 09/04/2018 TECHNIQUE: Computed tomography of the abdomen and [...] Reasonably Achievable) / Image Gently techniques. FINDINGS: Images of the lower chest reveal bibasilar atelectasis and scarring. Mitral annular calcifications. Status post cholecystectomy. Likely physiologic ectasia of the extrahepatic and central intrahepatic bile ducts. Tiny hypodensity in the right lobe of liver, possibly cysts. Focal fatty infiltration near the falciform ligament. Spleen, pancreas, and adrenal glands unremarkable. Right renal cyst. No hydronephrosis. Enhanced retroperitoneal vascular structures unremarkable. No bulky mesenteric or retroperitoneal lymphadenopathy. Stomach and small bowel loops nondilated. Normal appendix. Mild to moderate solid feces in the colon. Colonic diverticulosis. No free fluid or free air abdomen. Surgical changes of prior ventral hernia repair. Sigmoid diverticulosis. Bladder unremarkable. No pelvic ascites. Few pelvic vascular calcifications. No bulky pelvic or inguinal lymphadenopathy. Degenerative changes seen in the spine Procedure Note Kevin Mac MD - 09/05/2019 EXAMINATION: CT Abdomen and Pelvis with contrast CLINICAL HISTORY: Abdominal pain. Possible COVID COMPARISON: 09/04/2018 TECHNIQUE: Computed tomography of the abdomen and pelvis was obtainedafter administration of intravenous contrast, 100 mL of Isovue-370, without immediate complication according to routine protocol. A dose lowering technique was used for this procedure, which mayinclude, but is not limited to, dose reduction technique, automated exposure control, the use of iterative reconstruction, and ALARA (As Low As Reasonably Achievable) / Image Gently techniques. FINDINGS: Images of the lower chest reveal bibasilar atelectasis and scarring.Mitral annular calcifications. Status post cholecystectomy. Likely physiologic ectasia of theextrahepatic and central intrahepatic bile ducts. Tiny hypodensity in the right lobeof liver, possibly cysts. Focal fatty infiltration near the falciform ligament. Spleen, pancreas, and adrenal glands unremarkable. Right renal cyst. No hydronephrosis. Enhanced retroperitoneal vascular structures unremarkable. No bulky mesenteric or retroperitoneal lymphadenopathy. Stomach and small bowel loops nondilated. Normal appendix. Mild tomoderate solid feces in the colon. Colonic diverticulosis. No free fluid or freeair abdomen. Surgical changes of prior ventral hernia repair. Sigmoid diverticulosis. Bladder unremarkable. No pelvic ascites. Fewpelvic vascular calcifications. No bulky pelvic or inguinal lymphadenopathy. Degenerative changes seen in the spine IMPRESSION: 1. No definite acute abnormalities identified in the abdomen or pelvis. 2. Diverticulosis. 3. Atherosclerosis. Josep Jaimes PA-C CT Final R esult * XR CHEST PORTABLE (09/05/2019 7:25 PM CDT) Anatomical Region Laterality Modality Chest Fluoroscopy 09/05/2019 7:27 PM CDT Impressions 09/05/2019 7:28 PM CDT Impression: No acute chest findings. Interpreted By: Osiel Vergara MD, 09/05/2019 7:27 PM Narrative 09/05/2019 7:28 PM CDT Examination: Chest 1 view portable History: Shortness of breath DATE/TIME: 09/05/2019 6:45 PM Comparison: December 16, 2018 Technique: AP upright portable view of the chest was obtained. Findings: Heart size and mediastinal contours are normal. ??Ulnar vasculature within normal limits. ??No pulmonary consolidation, pleural effusion or pneumothorax. ??No acute osseous abnormality. Procedure Note Osiel Vergara MD - 09/05/2019 Examination: Chest 1 view portable History: Shortness of breath DATE/TIME: 09/05/2019 6:45 PM Comparison: December 16, 2018 Technique: AP upright portable view of the chest was obtained. Findings: Heart size and mediastinal contours are normal. Ulnarvasculature within normal limits. No pulmonary consolidation, pleuraleffusion or pneumothorax. No acute osseous abnormality. Impression: No acute chest findings. Interpreted By: Osiel Vergara MD, 09/05/2019 7:27 PM us Josep Jaimes PA-[facility] Final R esult * ECG 12 lead (09/05/2019 7:13 PM CDT) 09/05/2019 7:13 PM CDT Narrative [facility] - 09/05/2019 10:07 PM CDT ?[place] [place] ? [address] [facility] [place] ? Test Date: ?2019-09-05 Pat Name: ? MOHSEN MARIE ?Department: ? Room: ? [id number] Gender: ? Female ? Psychiatric Nurse: ?? GDD : ?1955 ? Requested By: JOSEP JAIMES Order Number: [id number] ? Reading : ?? Meena Bansal ? Measurements Intervals ?[place] ? Rate: ? 83 ? P: ?42 CO: ? 126 ?QRS: ?4 QRSD: ? 81 ? T: ?37 QT: ? 345 ? QTc: ?406 ? Interpretive Statements SINUS RHYTHM Compared to ECG 03/14/2019 19:17:02 No significant changes Procedure Note Meena Bansal MD - 09/05/2019 [facility] [place] [address] [facility] Test Date: 2019-09-05 Pat Name: MOHSEN MARQUES Department: Room: [id number] Gender: Female Psychiatric Nurse: ISABELLA : 1955 Requested By: JOSEP JAIMES Order Number: [id number] Reading MD: Meena Bansal Measurements Intervals [place] Rate: 83 P: 42 CO: 126 QRS: 4 QRSD: 81 T: 37 QT: 345 QTc: 406 Interpretive Statements SINUS RHYTHM Compared to ECG 03/14/2019 19:17:02 No significant changes Josep Jaimes PA-C ECG ORDERABLES Final R esult Performing Organization Address City/[facility]/ZIP Co de Phone Number [facility] * TROPONIN, QUANT (09/05/2019 6:46 PM CDT) [facility] TROPONIN I <0.015 <0.045 ng/mL. 09/05/2019 7:38 PM CDT [facility] Comment: HIGH DOSES OF BIOTIN MAY INTERFERE WITH THIS TEST RESULT. CORRELATION TO CLINICAL HISTORY AND PRESENTATION RECOMMENDED. 09/05/2019 6:46 PM CDT Josep Jaimes PA-C LABORATORY Final R esult Performing Organization Address [facility] Co de Phone Number [facility] [address] [place] [address], [place] [phone] * BNP (09/05/2019 6:46 PM CDT) [facility] B TYPE NATRIURETIC PEPTIDE 8 <100 PG/ML 09/05/2019 8:04 PM CDT [facility] 09/05/2019 6:46 PM CDT Josep Jaimes PA-C LABORATORY Final R esult Performing Organization Address City/[facility]/ZIP Co de Phone Number [facility] [address] [place] [address], [place] [phone] * LIPASE (09/05/2019 6:04 PM CDT) [facility] LIPASE 125 73 - 393 UNITS/L 09/05/2019 7:19 PM CDT [facility] 09/05/2019 6:04 PM CDT Josep Jaimes PA-C LABORATORY Final R esult [facility] [address] [place] [address], * (ABNORMAL) COMPREHENSIVE METABOLIC PANEL (09/05/2019 6:04 PM CDT) Pathologist [facility] GLUCOSE 157(H) 70 - 99 MG/DL 09/05/2019 7:19 PM CDT [facility] BUN 21(H) 7 - 18 MG/DL 09/05/2019 7:19 PM CDT [facility] CREATININE S/P/B 0.97 0.55 - 1.02 MG/DL 09/05/2019 7:19 PM CDT [facility] SODIUM S/P/B 136 136 - 145 MMOL/L 09/05/2019 7:19 PM CDT [facility] POTASSIUM S/P/B 4.0 3.5 - 5.1 MMOL/L 09/05/2019 7:19 PM CDT [facility] CHLORIDE S/P/B 100 100 - 108 MMOL/L 09/05/2019 7:19 PM CDT [facility] CO2 30.1 21 - 32 MMOL/L 09/05/2019 7:19 PM CDT [facility] CALCIUM S/P/B 10.3(H) 8.5 - 10.1 MG/DL 09/05/2019 7:19 PM CDT [facility] BILIRUBIN TOTAL S/P/B 0.4 0.2 - 1.2 MG/DL 09/05/2019 7:19 PM CDT [facility] Comment: THIS ASSAY IS NOT RECOMMENDED FOR PATIENTS UNDERGOING TREATMENT WITH ELTROMBOPAG DUE TO THE POTENTIAL FOR FALSELY ELEVATED RESULTS. TOTAL PROTEIN S/P/B 9.1(H) 6.4 - 8.2 G/DL 09/05/2019 7:19 PM CDT [facility] ALBUMIN S/P/B 3.5 3.4 - 5.0 G/DL 09/05/2019 7:19 PM CDT [facility] AST 22 15 - 37 U/L 09/05/2019 7:19 PM CDT [facility] ALT 26 14 - 55 U/L 09/05/2019 7:19 PM CDT [facility] ALKALINE PHOSPHATASE S/P/B 102 50 - 136 U/L 09/05/2019 7:19 PM CDT [facility] ANION GAP 5.9 5 - 15 MMOL/L 09/05/2019 7:19 PM CDT [facility] BUN CREATININE RATIO 21.6 6 - 26 09/05/2019 7:19 PM CDT [facility] A/G RATIO 0.6(L) 1.0 - 2.0 RATIO 09/05/2019 7:19 PM T [facility] EGFR NON-AFR. AMER. 62(L) >90 ML/MIN/1.7 3 M2 09/05/2019 7:19 PM T [facility] EGFR AFR. AMER. 72(L) >90 ML/MIN/1.7 3 M2 09/05/2019 7:19 PM CDT [facility] Comment: NOTE: eGFR is not calculated for patients <18 years of age. This is an estimated GFR (CKD EPI) and should not be used for calculating drug doses. 09/05/2019 6:04 PM CDT us Josep Jaimes PA-C LABORATORY Final R esult [facility] [address] [place] [address], [place] [phone] * (ABNORMAL) CBC W/DIFF AUTOMATED (09/05/2019 6:04 PM CDT) [facility] Signature WBC 14.1(H) 4.5 - 11.0 x10'3/uL 09/05/2019 6:57 PM CDT [facility] RBC 4.61 4.20 - 5.40 x10'6/uL 09/05/2019 6:57 PM CDT [facility] HGB 13.3 12.0 - 16.0 G/DL 09/05/2019 6:57 PM CDT [facility] HCT 42.1 38.0 - 48.0 % 09/05/2019 6:57 PM CDT [facility] MCV 91.3 81.0 - 99.0 FL 09/05/2019 6:57 PM CDT [facility] MCH 28.9 27.0 - 31.0 PG 09/05/2019 6:57 PM CDT [facility] MCHC 31.6(L) 32.0 - 36.0 G/DL 09/05/2019 6:57 PM CDT [facility] RDW 14.1 11.5 - 14.5 % 09/05/2019 6:57 PM CDT [facility] PLT 334 130 - 400 x10'3/uL 09/05/2019 6:57 PM CDT [facility] MPV 10.0 9.3 - 12.2 FL 09/05/2019 6:57 PM CDT [facility] DIFFERENTIAL TYPE AUTOMATED DIFFERENTIAL 09/05/2019 6:57 PM CDT [facility] NEUTROPHILS % 67.5 % 09/05/2019 6:57 PM CDT [facility] LYMPHOCYTES % 22.8 % 09/05/2019 6:57 PM CDT [facility] MONOCYTES % 7.3 % 09/05/2019 6:57 PM CDT [facility] EOSINOPHILS 1.7 % 09/05/2019 6:57 PM CDT [facility] BASOPHILS 0.3 % 09/05/2019 6:57 PM CDT [facility] IMMATURE GRANS % 0.4 % 09/05/19 20 6:57 PM CDT [facility] ABS. NEUTROPHILS TOTAL 9.49(H) 1.80 - 7.70 x10'3/uL 09/05/2019 6:57 PM CDT [facility] ABS. LYMPHOCYTES 3.21 1.00 - 4.80 x10'3/uL 09/05/2019 6:57 PM CDT [facility] ABS. MONOCYTES 1.03(H) 0.24 - 0.86 x10'3/uL 09/05/2019 6:57 PM CDT [facility] ABS. EOSINOPHILS 0.24 0.04 - 0.36 x10'3/uL 09/05/2019 6:57 PM CDT [facility] ABS. BASOPHILS 0.04 0.01 - 0.08 x10'3/uL 09/05/2019 6:57 PM CDT [facility] ABS. IMMATURE GRANULOCYTES 0.05 0.00 - 0.49 x10'3/uL 09/05/2019 6:57 PM CDT [facility] 09/05/2019 6:04 PM CDT us Josep Jaimes PA-C LABORATORY Final R esult [facility] [address] [place] [address], documented in this encounter Visit Diagnoses Diagnosis Viral illness- Primary Unspecified viral infection, in conditions classified elsewhere and of unspecified site Abdominal pain Abdominal pain, unspecified site Nausea & vomiting Nausea with vomiting documented in this encounter Administered Medications Inactive Administered Medications - up to 3 most recent administrations Medication Order MAR Action Action Date Dose Rate Site iopamidol (ISOVUE-370) 76 % injection 100 mL 100 mL, Intravenous, IMG once as needed, Contrast, 1 dose, Starting on Valeri 09/05/19 at 1947, Until Valeri 09/05/19 at 1947 Given 09/05/2019 7:47 PM CDT 100 mLs Ri ght Arm morphine injection 4 mg 4 mg, Intravenous, Once, 1 dose, On Valeri 09/05/19 at 1845 Given 09/05/2019 7:13 PM CDT 4 mg morphine injection 4 mg 4 mg, Intravenous, Once, 1 dose, On Valeri 09/05/19 at 2130 Given 09/05/2019 9:27 PM CDT 4 mg morphine injection 1 dose, Starting on Valeri 09/05/19 at 1848, Until Valeri 09/05/19 at 1913, Created by cabinet override ondansetron (ZOFRAN) 4 MG/2ML injection 1 dose, Starting on Valeri 09/05/19 at 1848, Until Valeri 09/05/19 at 1913, Created by cabinet override ondansetron (ZOFRAN) injection 4 mg 4 mg, Intravenous, Once, 1 dose, On Valeri 09/05/19 at 1845, IV push over 2-5 minutes. Given 09/05/2019 7:13 PM CDT 4 mg ondansetron (ZOFRAN) injection 4 mg 4 mg, Intravenous, Once, 1 dose, On Valeri 09/05/19 at 2130, IV push over 2-5 minutes. Given 09/05/2019 9:26 PM CDT 4 mg documented in this encounter Active and Recently Administered Medications Times are shown in CDT. Scheduled Medication Order 09/03/2019 09/04/2019 09/05/2019 morphine injection 4 mg (COMPLETED) 4 mg, Intravenous, Once, 1 dose, On Valeri 09/05/19 at 1845 1913 (Given - Provid er: Jane Perez RN) morphine injection 4 mg (COMPLETED) 4 mg, Intravenous, Once, 1 dose, On Valeri 09/05/19 at 2130 212 (Given - Provid er: Jane Perez RN) ondansetron (ZOFRAN) injection 4 mg (COMPLETED) 4 mg, Intravenous, Once, 1 dose, On Valeri 09/05/19 at 1845, IV push over 2-5 minutes. 1912 (Given - Provid er: Jane Perez RN) ondansetron (ZOFRAN) injection 4 mg (COMPLETED) 4 mg, Intravenous, Once, 1 dose, On Valeri 09/05/19 at 2130, IV push over 2-5 minutes. 2125 (Given - Provid er: Jane Perez RN)2131 (Override Pull - Provider: Jane Perez RN) PRN Medication Order 09/03/2019 09/04/2019 09/05/2019 iopamidol (ISOVUE-370) 76 % injection 100 mL (COMPLETED) 100 mL, Intravenous, IMG once as needed, Contrast, 1 dose, Starting on Valeri 09/05/19 at 1947, Until Valeri 09/05/19 at 1947 1947 (Given - Provid er: Alicia Lemons, RTR) documented in this encounter Additional Health Concerns Infection Onset Date Last Indicated Resolved Time MRSA Comment:MRSA nares pos. 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 [address] PCP - General FAMILY PRACTICE 08/20/17 Meena Bansal MD [address] [place] [address] [place] [address] [place] [employer] CARDIOVASCULAR DISEASE 04/24/16 documented as of this encounter
--- OUTSIDE RECORDS SUMMARY | 2024-04-26 02:41 | XMS_ITS | Encounter Summary ---
Author Organization [facility] Address [address] [place] [address]. 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 No / Unsure 11/10/2019 2:41 PM CDT documented as of this encounter [...] pos. 02/201808/31/2018 08/31/2018 07/02/19 21 2:54 AM SENIOR GROUP MANAGER documented as of this encounter Care Teams [employer] Mixer Operator Relationship Specialty Start Date End Date Justen Gale MD [address] [facility] [address] [place] [address] PCP - General FAMILY PRACTICE 08/20/17 Meena Bansal MD [address] [facility] [address] [place] [address] [facility] CARDIOVASCULAR DISEASE 04/24/16 documented as of this encounter
--- OUTSIDE RECORDS SUMMARY | 2024-04-26 02:41 | XMS_ITS | Encounter Summary ---
Author Organization [facility] Address [address] [place] [address]. [place] [address] [place] [address] Care Team Providers Care [employer] Certified Internetwork Expert Name Role Phone Meena Bansal MD Unavailable [phone] Justen Gale MD Primary Care Provider [phone] Reason for Visit * Reason Comments Wound left fot insicion Encounter Details Date Type Department Care Team (Late st Contact Info) Description 07/01/2019 7:07 PM CDT - 07/01/2019 9:53 PM CDT Emergency [facility] Emergency Room [place], [place] [id number] Nayeli White, STEPH [address] [address] Wound (left fot insicion) Discharge Disposition: Home or Self Care (Routine [...] Orientation Straight 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 documented as of this encounter Last Filed Vital Signs Vital Sign Reading Time Taken Comments Blood Pressure 93/55 07/01/2019 9:21 PM CDT Pulse 84 07/01/2019 9:21 PM CDT Temperature 36.4 ??C (97.6 ??F) 07/01/2019 6:47 PM CD T Respiratory Rate 18 07/01/2019 9:21 PM CDT Oxygen Saturation 99% 07/01/2019 9:21 PM CDT Inhaled Oxygen Concentration - - Weight 132.5 kg (292 lb) 07/01/2019 6:47 PM CDT Height 154.9 cm (5' 1 ) 07/01/2019 6:47 PM CDT Body Mass Index 55.17 07/01/2019 6:47 PM CDT documented in this encounter Functional [...] Assessment Author Status No 09/09/2018 5:09 AM BRENDANT Farzaneh Morgan RN Active * Because of a physical, mental, or emotional condition, do you have difficulty doing errands alone such as visiting a doctor's office or shopping? Answer Date of Assessment Author Status No 09/09/2018 5:09 AM BRENDANT Farzaneh Morgan RN Active documented as of this encounter Mental Status * Because of a physical, mental, or emotional condition, do you have serious difficulty concentrating, remembering, or making decisions? Answer Entry Date Author Status No 09/09/2018 5:09 AM Farzaneh Juan RN Active documented in this encounter Discharge Instructions * Discharge Instructions* Nayeli White PA-C - 07/01/2019 9:39 PM CDT Continue your doxycycline as directed by machine sorter. Take pain and nausea medications as prescribed, if needed. Weightbearing as tolerated. Rest and elevate the leg when possible. Follow-up with yourpodiatrist this week as scheduled, as well as with your primary doctor. * Attachments The following attachments cannot be sent through Care Everywhere. * Muscle and Bone Pain Discharge Instructions (Kiswahili) documented in this encounter Medications at Time [...] mg by mouth daily. 10/13/19 24 ondansetron (ZOFRAN ODT) 4 MG disintegrating tablet Take 1 tablet (4 mg total) by mouth every 8 (eight) hours as needed for Nausea. 15 tablet 0 09/05/19 20 oxybutynin 5 MG tablet Take 5 mg by mouth 2 (two) times daily. 10/13/19 24 documented as of this encounter ED Notes * Jennifer Dennison RN - 07/01/2019 9:45 PM CDT Pt seen and discharged by provider JENNIFER DENNISON RN * Nayeli White PA-C - 07/01/2019 9:32 PM CDT ED NOTE Karly Marques 1955 Chief Complaint Chief Complaint Patient presents with ??? Wound left fot insicion History of Present Illness Patient presents to the emergency room complaining of pain, tenderness, swelling to left lateral foot/ankle at site of her recent tendon surgery per podiatry. She had the surgery on 06/05/2019 withoutcomplications. She states that she did follow-up 7 days ago, states sutures were removed and surgeon was happy with the process. She was started on doxycycline due to swelling and tenderness reportedl y. Since then she states the middle of the wound has slightly come open. No purulent drainage reported. Has follow-up with machine sorter late this week. Denies fever, numbness distally, inability to bear weight. Medical History ALLERGIES: Allergies Allergen Reactions ??? Ativan [Lorazepam] Hyperactive Aggrevates restless leg syndrome ??? Cephalosporins Anaphylaxis ??? Rocephin [Ceftriaxone] Shortness of Breath ??? Levofloxacin Hives ??? Oxycodone Vomiting ??? Reglan [Metoclopramide] Hyperactive ??? Trazodone Other (see comment) Shaky, restlessness, itching, throat swelling MEDICATIONS: Prior to Admission medications Medication Sig Start Date End Date Taking? Authorizing Provider hydrocodone-acetaminophen (NORCO) 5-325 MG tablet Take 1 tablet by mouth every 6 (six) hours as needed. Indications: Acute Pain < 7 Day Supply 07/01/19 Yes Nayeli White PA-C ondansetron (ZOFRAN ODT) 4 MG disintegrating tablet Take 1 tablet (4 mg total) by mouth every 8 (eight) hours as needed for Nausea. 07/01/19 Yes Nayeli White PA-C amitriptyline 25 MG tablet Take 25 mg by mouth nightly at bedtime. Doc Abstract diclofenac EC 75 MG tablet Take 1 tablet (75 mg total) by mouth 2 (two) times daily as needed (Pain. Please take with food.). 01/17/19 Jaswinder Gaytan MD exemestane 25 MG tablet Take 25 mg by mouth daily with supper. Give with food 08/09/17 Doc Abstract insulin glargine (LANTUS SOLOSTAR) 100 [...] Last attempt to quit: 03/23/1977 Years since quittin.3 ??? Smokeless tobacco: Never Used Substance Use Topics ??? Alcohol use: No ??? Drug use: No Review of Systems Review of Systems Constitutional: Negative for activity change, appetite change, fever and unexpected weight change. HENT: Negative for ear pain, sore throat and trouble swallowing. Eyes: Negative. Respiratory: Negative for cough, chest tightness and shortness of breath. Cardiovascular: Negative for chest pain, palpitations and leg swelling. Gastrointestinal: Negative for abdominal distention, abdominal pain, constipation, diarrhea, nauseaand vomiting. Endocrine: Negative. Genitourinary: Negative for dysuria, flank pain and hematuria. Musculoskeletal: Negative for arthralgias, back pain, myalgias and neck pain. Skin: Positive for wound (surgical wound left lateral ankle). Negative for color change and rash. Allergic/Immunologic: Negative for immunocompromised state. Neurological: Negative for dizziness, speech difficulty, weakness, light- headedness, numbness and headaches. Hematological: Negative for adenopathy. Psychiatric/Behavioral: Negative. Physical Exam Filed Vitals: 07/01/19 1847 07/01/19 2121 BP: 131/64 93/55 Pulse: 87 84 Resp: 18 18 Temp: 97.6 ??F (36.4 ??C) TempSrc: Oral SpO2: 99% 99% Weight: 132.5 kg (292 lb) Height: 5' 1 (1.549 m) Physical Exam Constitutional: She is oriented to person, place, and time. She appears well- developed and well-nourished. No distress. HENT: Head: Normocephalic and atraumatic. Nose: Nose normal. Mouth/Throat: Oropharynx is clear and moist. Eyes: Pupils are equal, round, and reactive to light. Conjunctivae and EOM are normal. Neck: Normal range of motion. Neck supple. No tracheal deviation present. No thyromegaly present. Cardiovascular: Normal rate, regular rhythm, normal heart sounds and intact distal pulses. DP pulses equal and strong Pulmonary/Chest: Effort normal and breath sounds normal. No respiratory distress. Abdominal: Soft. Bowel sounds are normal. She exhibits no distension and no mass. There is no tenderness. There is no rebound and no guarding. No hernia. Musculoskeletal: Normal range of motion. She exhibits edema and tenderness. She exhibits no deformity. Mild edema noted to left lateral ankle about the surgical wound, which does appear well-healing. Tenderness at the site. No erythema. Minimally open wound at the middle of the incision, with no drainage or purulence noted. Lymphadenopathy: She has no cervical adenopathy. Neurological: She is alert and oriented to person, place, and time. She displays normal reflexes. No cranial nerve deficit or sensory deficit. She exhibits normal muscle tone. Coordination normal. Skin: Skin is warm and dry. Capillary refill takes less than 2 seconds. No rash noted. She is not diaphoretic. No pallor. Psychiatric: She has a normal mood and affect. Her behavior is normal. Judgment and thought contentnormal. Nursing note and vitals reviewed. Diagnostic Studies / Procedures ELECTROCARDIOGRAMS: No results found for this visit on 07/01/19. LABORATORY STUDIES: Results for orders placed or performed during the hospital encounter of 07/01/19 CBC W/DIFF AUTOMATED Result Value Ref Range WBC 11.2 (H) 4.5 - 11.0 x10'3/uL RBC 5.15 4.20 - 5.40 x10'6/uL HGB 14.5 12.0 - 16.0 G/DL HCT 47.3 38.0 - 48.0 % MCV 91.8 80.0 - 94.0 FL MCH 28.2 27.0 - 31.0 PG MCHC 30.7 (L) 32.0 - 36.0 G/DL RDW 14.5 11.5 - 14.5 % PLT 319 130 - 400 x10'3/uL MPV 9.7 9.3 - 12.2 FL DIFFERENTIAL TYPE AUTOMATED DIFFERENTIAL NEUTROPHILS 67.6 % LYMPHOCYTES 23.4 % MONOCYTES 6.1 % EOSINOPHILS 2.1 % BASOPHILS 0.4 % IMMATURE GRANS 0.4 % ABS. NEUTROPHILS TOTAL 7.57 1.80 - 7.70 x10'3/uL ABS. LYMPHOCYTES 2.62 1.00 - 4.80 x10'3/uL ABS. MONOCYTES 0.68 0.24 - 0.86 x10'3/uL ABS. EOSINOPHILS 0.23 0.04 - 0.36 x10'3/uL ABS. BASOPHILS 0.04 0.01 - 0.08 x10'3/uL ABS. IMMATURE GRANULOCYTES 0.04 0.00 - 0.49 x10'3/uL COMPREHENSIVE METABOLIC PANEL Result Value Ref Range GLUCOSE 110 (H) 70 - 99 MG/DL BUN 17 7 - 18 MG/DL CREATININE 0.88 0.55 - 1.02 MG/DL SODIUM 137 136 - 145 MMOL/L POTASSIUM 3.8 3.5 - 5.1 MMOL/L CHLORIDE 106 100 - 108 MMOL/L CO2 27.0 21 - 32 MMOL/L CALCIUM 9.8 8.5 - 10.1 MG/DL TOTAL BILIRUBIN 0.5 0.2 - 1.2 MG/DL TOTAL PROTEIN 9.7 (H) 6.4 - 8.2 G/DL ALBUMIN 3.6 3.4 - 5.0 G/DL AST 17 15 - 37 U/L ALT 31 14 - 55 U/L ALK PHOS 120 50 - 136 U/L ANION GAP 4.0 (L) 5 - 15 MMOL/L BUN CREATININE RATIO 19.4 6 - 26 A/G RATIO 0.6 (L) 1.0 - 2.0 RATIO eGFR Non-Afr. Amer. 70 (L) >90 ML/MIN/1.73 M2 eGFR Afr. Amer. 81 (L) >90 ML/MIN/1.73 M2 LACTIC ACID Result Value Ref Range LACTIC ACID 1.9 0.4 - 2.0 MMOL/L IMAGING STUDIES XR ANKLE LT 2V Final Result by User, [id number] (06/30 1932) Examination: Left ankle 2 views Exam time: 07/01/2019 7:21 PM Clinical history: surgical wound/infectionhead tendon repair 10 days ago now with pain and swelling Comparison: None Technique: AP, , and lateral views of the left ankle were obtained. Findings:There is mild medial and lateral soft tissue swelling. No fracture. No osseous destructive lesions. Moderate to large plantar heel spur is noted and there is bridging bony spurs at the naviculocuneiform joint. IMPRESSION: Degenerative change. No osseous destructive lesions. Interpreted By: Lisa Menon MD, 07/01/2019 7:31 PM ED Course / Medical Decision Making MDM Number of Diagnoses or Management Options Amount and/or Complexity of Data Reviewed Clinical lab tests: ordered and reviewed Tests in the radiology section of CPT??: ordered and reviewed Tests in the medicine section of CPT??: ordered and reviewed No acute distress, vital signs stable, afebrile. Integumentary/pedal exam as mentioned. Strong distal neurovascular status. Edema noted without any signs of significant infection. Labs unremarkable for acute concern. Imaging negative for acute concern or osteomyelitis. Percocet given with pain relief. Will discharge home with podiatry follow-up. Medications oxyCODONE-acetaminophen (PERCOCET) 5-325 MG tablet 1 tablet (1 tablet Oral Given 07/01/192013) Clinical Impression Acute left ankle pain (Primary) Current Discharge Medication List START taking these medications Details ondansetron (ZOFRAN ODT) 4 MG disintegrating tablet Take 1 tablet (4 mg total) by mouth every 8 (eight) hours as needed for Nausea. Qty: 15 tablet, Refills: 0 Class: Print Pharmacy: [id number] - [place], [place] - [address] (Ph #: [phone]) Disposition: Discharge Follow-Up: Justen Gale MD #[address] [address] In 3 days NAYELI WHITE PA-C 07/01/2019 Nayeli White PA-C 07/01/19 9374 Cosigned by Gonsalo Harrison MD at 07/01/2019 11:04 PM CDT * Nayeli White PA-C - 07/01/2019 7:17 PM CDT [place], [place] EMERGENCY DEPARTMENT ENCOUNTER Medical Screening Examination 07/01/19 7:17 PM Chief Complaint : Wound (left fot insicion) HPI : Karly Marques is a 64-year-old female who presents c/o pain, swelling, ttp to left lateral foot and ankle at site of her recent tendon surgery per podiatry. Had surgery on 06/05/2019. Followed up 7 days ago and had sutures removed. States wound has come open in the middle. Was started on abx Doxycycline, took for 3 days but then stopped d/t nausea from abx. Denies fever Vital Signs: Filed Vitals: 07/01/19 1847 BP: 131/64 Pulse: 87 Resp: 18 Temp: 97.6 ??F (36.4 ??C) TempSrc: Oral SpO2: 99% Weight: 132.5 kg (292 lb) Height: 5' 1 (1.549 m) Physical exam: A brief physical exam was completed to facilitate/expedite patient care. Mitchell findings include: Pt stable. Open surgical wound to left lateral ankle/foot without purulent drainage. Strong distal pulses. Plan: Labs, imaging NAYELI WHITE PA-C 07/01/2019 Nayeli White PA-C 07/01/191919 Cosigned by Gonsalo Harrison MD at 07/01/2019 11:04 PM CDT * Jane Perez RN - 07/01/2019 6:57 PM CDT Pt to ed from home with left foot tenderness and I think my incision is infected . Pt had tendon repair to left foot about 10 days or so ago with dr renae portillo. Pt reports MD called in antibiotics for her but that she had to stop taking because they were making me feel bad . Pt reports pain and extreme tenderness to area. Area not visualized upon triage and large walking boot in place. documented in this encounter Plan of Treatment Not on file documented as of this encounter Procedures Procedure Name Priority Date/Time Associated Diagnosis Comments COMPREHENSIVE METABOLIC PANEL STAT 07/01/2019 7:41 PM CDT LACTIC ACID TIMED 07/01/2019 7:41 PM CDT CBC W/DIFF AUTOMATED STAT 07/01/2019 7:41 PM CDT XR ANKLE LT 2V STAT 07/01/2019 7:30 PM CDT documented in this encounter Results * LACTIC ACID (07/01/2019 7:41 PM CDT) LACTIC ACID VENOUS 1.9 0.4 - 2.0 MMOL/L 07/01/2019 8:31 PM CDT [facility] 07/01/2019 7:41 PM CDT Nayeli White PA-C LABORATORY Final Resul t [facility] [address] [place] [address], * (ABNORMAL) COMPREHENSIVE METABOLIC PANEL (07/01/2019 7:41 PM CDT) GLUCOSE 110(H) 70 - 99 MG/DL 07/01/2019 8:30 PM CDT [facility] BUN 17 7 - 18 MG/DL 07/01/2019 8:30 PM CDT [facility] CREATININE S/P/B 0.88 0.55 - 1.02 MG/DL 07/01/2019 8:30 PM CDT [facility] SODIUM S/P/B 137 136 - 145 MMOL/L 07/01/2019 8:30 PM CDT [facility] POTASSIUM S/P/B 3.8 3.5 - 5.1 MMOL/L 07/01/2019 8:30 PM CDT [facility] CHLORIDE S/P/B 106 100 - 108 MMOL/L 07/01/2019 8:30 PM CDT [facility] CO2 27.0 21 - 32 MMOL/L 07/01/2019 8:30 PM CDT [facility] CALCIUM S/P/B 9.8 8.5 - 10.1 MG/DL 07/01/2019 8:30 PM CDT [facility] BILIRUBIN TOTAL S/P/B 0.5 0.2 - 1.2 MG/DL 07/01/2019 8:30 PM CDT [facility] Comment: THIS ASSAY IS NOT RECOMMENDED FOR PATIENTS UNDERGOING TREATMENT WITH ELTROMBOPAG DUE TO THE POTENTIAL FOR FALSELY ELEVATED RESULTS. TOTAL PROTEIN S/P/B 9.7(H) 6.4 - 8.2 G/DL 07/01/2019 8:30 PM CDT [facility] ALBUMIN S/P/B 3.6 3.4 - 5.0 G/DL 07/01/2019 8:30 PM CDT [facility] AST 17 15 - 37 U/L 07/01/2019 8:30 PM CDT [facility] ALT 31 14 - 55 U/L 07/01/2019 8:30 PM CDT [facility] ALKALINE PHOSPHATASE S/P/B 120 50 - 136 U/L 07/01/2019 8:30 PM CDT [facility] ANION GAP 4.0(L) 5 - 15 MMOL/L 07/01/2019 8:30 PM CDT [facility] BUN CREATININE RATIO 19.4 6 - 26 07/01/2019 8:30 PM CDT [facility] A/G RATIO 0.6(L) 1.0 - 2.0 RATIO 07/01/2019 8:30 PM CDT [facility] EGFR NON-AFR. AMER. 70(L) >90 ML/MIN/1.7 3 M2 07/01/2019 8:30 PM T [facility] EGFR AFR. AMER. 81(L) >90 ML/MIN/1.7 3 M2 07/01/2019 8:30 PM T [facility] Comment: NOTE: eGFR is not calculated for patients <18 years of age. This is an estimated GFR (CKD EPI) and should not be used for calculating drug doses. 07/01/2019 7:41 PM CDT Nayeli White PA-C LABORATORY Final Resul t [facility] [address] [place] [address], * (ABNORMAL) CBC W/DIFF AUTOMATED (07/01/2019 7:41 PM CDT) WBC 11.2(H) 4.5 - 11.0 x10'3/uL 07/01/2019 7:52 PM CDT [facility] RBC 5.15 4.20 - 5.40 x10'6/uL 07/01/2019 7:52 PM CDT [facility] HGB 14.5 12.0 - 16.0 G/DL 07/01/2019 7:52 PM CDT [facility] HCT 47.3 38.0 - 48.0 % 07/01/2019 7:52 PM CDT [facility] MCV 91.8 80.0 - 94.0 FL 07/01/2019 7:52 PM CDT [facility] MCH 28.2 27.0 - 31.0 PG 07/01/2019 7:52 PM CDT [facility] MCHC 30.7(L) 32.0 - 36.0 G/DL 07/01/2019 7:52 PM CDT [facility] RDW 14.5 11.5 - 14.5 % 07/01/2019 7:52 PM CDT [facility] PLT 319 130 - 400 x10'3/uL 07/01/2019 7:52 PM CDT [facility] MPV 9.7 9.3 - 12.2 FL 07/01/2019 7:52 PM CDT [facility] DIFFERENTIAL TYPE AUTOMATED DIFFERENTIAL 07/01/2019 7:52 PM CDT [facility] NEUTROPHILS % 67.6 % 07/01/2019 7:52 PM CDT [facility] LYMPHOCYTES % 23.4 % 07/01/2019 7:52 PM CDT [facility] MONOCYTES % 6.1 % 07/01/2019 7:52 PM CDT [facility] EOSINOPHILS 2.1 % 07/01/2019 7:52 PM CDT [facility] BASOPHILS 0.4 % 07/01/2019 7:52 PM CDT [facility] IMMATURE GRANS % 0.4 % 07/01/19 20 7:52 PM CDT [facility] ABS. NEUTROPHILS TOTAL 7.57 1.80 - 7.70 x10'3/uL 07/01/2019 7:52 PM CDT [facility] ABS. LYMPHOCYTES 2.62 1.00 - 4.80 x10'3/uL 07/01/2019 7:52 PM CDT [facility] ABS. MONOCYTES 0.68 0.24 - 0.86 x10'3/uL 07/01/2019 7:52 PM CDT [facility] ABS. EOSINOPHILS 0.23 0.04 - 0.36 x10'3/uL 07/01/2019 7:52 PM CDT [facility] ABS. BASOPHILS 0.04 0.01 - 0.08 x10'3/uL 07/01/2019 7:52 PM CDT [facility] ABS. IMMATURE GRANULOCYTES 0.04 0.00 - 0.49 x10'3/uL 07/01/2019 7:52 PM CDT [facility] 07/01/2019 7:41 PM CDT us Nayeli White PA-C LABORATORY Final Resul t [facility] [address] [place] [address], * XR ANKLE LT 2V (07/01/2019 7:30 PM CDT) Anatomical Region Laterality Modality Ankle Radiographic Lizeth ging 07/01/2019 7:31 PM CDT Impressions 07/01/2019 7:33 PM CDT IMPRESSION: Degenerative change. ??No osseous destructive lesions. Interpreted By: Lisa Menon MD, 07/01/2019 7:31 PM Narrative 07/01/2019 7:33 PM CDT Examination: Left ankle 2 views Exam time: 07/01/2019 7:21 PM Clinical history: surgical wound/infectionhead tendon repair 10 days ago now with pain and swelling Comparison: None Technique: AP, , and lateral views of the left ankle were obtained. Findings:There is mild medial and lateral soft tissue swelling. ??No fracture. ??No osseous destructive lesions. ??Moderate to large plantar heel spur is noted and there is bridging bony spurs at the naviculocuneiform joint. Procedure Note Lisa Menon MD - 07/01/2019 Examination: Left ankle 2 views Exam time: 07/01/2019 7:21 PM Clinical history: surgical wound/infectionhead tendon repair 10 days agonow with pain and swelling Comparison: None Technique: AP, , and lateral views of the left ankle were obtained. Findings:There is mild medial and lateral soft tissue swelling. Nofracture. No osseous destructive lesions. Moderate to large plantar heelspur is noted and there is bridging bony spurs at the naviculocuneiformjoint. IMPRESSION: Degenerative change. No osseous destructive lesions. Interpreted By: Lisa Menon MD, 07/01/2019 7:31 PM Nayeli White PA-C GENERAL IMAGING Final Resul t documented in this encounter Visit Diagnoses Diagnosis Acute left ankle pain- Primary documented in this encounter Administered Medications Inactive Administered Medications - up to 3 most recent administrations Medication Order MAR Action Action Date Dose Rate Site oxyCODONE-acetaminophen (PERCOCET) 5-325 MG tablet 1 tablet 1 tablet, Oral, Once, 1 dose, On Mon07/01/19 at 2014, Maximum dose of acetaminophen is 4000 mg from all sources in 24 hours. Given 07/01/2019 8:14 PM CDT 1 tablet documented in this encounter Active and Recently Administered Medications Due to Daylight Saving Time, this section may contain times in both FISH INSPECTOR and CDT. Scheduled Medication Order 06/29/2019 06/30/2019 07/01/2019 oxyCODONE-acetaminophen (PERCOCET) 5-325 MG tablet 1 tablet (COMPLETED) 1 tablet, Oral, Once, 1 dose, On Mon07/01/19 at 2014, Maximum dose of acetaminophen is 4000 mg from all sources in 24 hours. 2013 (Given - Provid er: Candy English RN) documented in this encounter Additional Health Concerns Infection Onset Date Last Indicated Resolved Time MRSA Comment:MRSA nares pos. 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 [address] PCP - General FAMILY PRACTICE 08/20/17 Meena Bansal MD [address] [place] [address] José Luis Research Chemical Engineer CARDIOVASCULAR DISEASE 04/24/16 documented as of this encounter
--- OUTSIDE RECORDS SUMMARY | 2024-04-26 02:41 | XMS_ITS | Encounter Summary ---
Author Organization [facility] Address [address] [place] [address]. [place] [address] [place] [address] Care Team Providers Care Construction Skills Teacher Name Role Phone Meena Bansal MD Unavailable [phone] Justen Gale MD Primary Care Provider [phone] Reason for Referral * Imaging (Emergency) - Closed Specialty Diagnoses / Procedures Referred By Elyssa benavides Referred To Contact RADIOLOGY Procedures CT LUMB SPINE WO CON Damian Funez PA-C Referral ID Status Reason Start Date Expiration Date Visits Re quested Visits Authorized [id number] Closed 12/09/2018 01/10/2020 1 1 Reason for Visit * Reason Comments Back Pain Encounter Details Date Type Department Care Team (Late st Contact Info) Description 12/09/2018 9:07 PM CDT - 12/10/2018 1:40 AM CDT Emergency [facility] [place] [address] Corby Toledo MD [address] [place] [address] Back Pain Discharge Disposition: Home or Self Care [...] Sexual Orientation Straight 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 Last Filed Vital Signs Vital Sign Reading Time Taken Comments Blood Pressure 116/77 12/10/2018 1:24 AM CDT Pulse 84 12/10/2018 1:24 AM CDT Temperature 37.2 ??C (98.9 ??F) 12/09/2018 8:57 PM CD T Respiratory Rate 16 12/10/2018 1:24 AM CDT Oxygen Saturation 99% 12/10/2018 1:24 AM CDT Inhaled Oxygen Concentration - - Weight 129.3 kg (285 lb) 12/09/2018 8:57 PM CDT Height 154.9 cm (5' 1 ) 12/09/2018 8:57 PM CDT Body Mass Index 53.85 12/09/2018 8:57 PM CDT documented in this encounter Functional [...] AM BRENDANT Farzaneh Morgan RN Active * Do you [...] Date Author Status No 09/09/2018 5:09 AM BRENDANT Farzaneh Morgan RN Active documented in this encounter Discharge Instructions * Discharge Instructions* Corby Toledo MD - 12/10/2018 1:02 AM CDT Follow up closely with primary doctor and Pain management. Discuss the ER stay. CT scan showed degenerative changes. I suspect inflammation and pinched nerves. You may need MRI and further imaging/pain control per them. If severe progressive worsening, paralysis, incontinence, return to ER. * Attachments The following attachments cannot be sent through Care Everywhere. * Low Back Pain Discharge Instructions (Bahraini) documented in this encounter Medications at Time [...] by mouth nightly at bedtime. 10/13/19 24 cyclobenzaprine 10 MG tablet Take 1 tablet (10 mg total) by mouth 3 (three) times daily as needed for Muscle Spasms. 30 tablet 9 12/21/19 19 hydrocodone-acetam inophen 7.5-325 MG tablet Take 1-2 tablets by mouth every 4 (four) hours as needed for Pain. 07/01/19 20 lidocaine 5 % Place 1 patch onto the skin daily for 30 days. Remove & Discard patch within 12 hours or as directed by 15 patch 9 01/10/20 19 lisinopril 20 MG tablet Take 20 mg by mouth daily. 10/13/19 24 oxybutynin 5 MG tablet Take 5 mg by mouth 2 (two) times daily. 10/13/19 24 predniSONE 20 MG tablet Take 2 tablets (40 mg total) by mouth daily for 4 days. 8 tablet 9 12/15/19 19 documented as of this encounter ED Notes * Corby Toledo MD - 12/09/2018 10:49 PM CDT [place], [place] EMERGENCY DEPARTMENT ENCOUNTER Chief Complaint Chief Complaint Patient presents with ??? Back Pain History of Present Illness History provided by: Patient site interpreter used: No Kalry Marques is a 63-year-old female hx arthritis, DM, HTN, presents to ED for evaluation of lower back pain for the past couple of weeks, worsening the past 2 days. Pt reports significant hx chronic back pain and is currently in pain management, being seen by Dr. Storm. Pt gets steroid injections every couple of weeks, states her last one was 3-4 weeks ago. States at the time of the injection most of her pain was specifically to her left side, but now it has radiated to her right. States the pain starts in her lower back and radiates down her right side. Pain is not allowing her to sleep or ambulate without pain. Pt is able to ambulate however. Also complains Currently on Hydrocodone for pain, but denies relief. No severe weakness. no incontinence of stool/urine. No fever. Also onXarelto for hx blood clots and Insulin.Denies injury, trauma, or fall. Hx breast cancer, 4 years remission. Past Medical History: Diagnosis Date ??? Arthritis ??? Blood clot in vein ??? Breast cancer (CMS/HCC) ??? Cancer (CMS/HCC) ??? Diabetes mellitus (CMS/HCC) ??? Disease of thyroid gland ??? Hypertension ??? Kidney stones ??? Neuropathy ??? Restless leg syndrome ??? Spinal headache Has Bulging disc in lower back and Neck Medical History ALLERGIES: Allergies Allergen Reactions ??? Ativan [Lorazepam] Hyperactive Aggrevates restless leg syndrome ??? Cephalosporins Anaphylaxis ??? Rocephin [Ceftriaxone] Shortness of Breath ??? Levofloxacin Hives ??? Oxycodone Vomiting ??? Reglan [Metoclopramide] Hyperactive ??? Trazodone Other (see comment) Shaky, restlessness, itching, throat swelling MEDICATIONS: Prior to Admission medications Medication Sig Start Date End Date Taking? Authorizing Provider cyclobenzaprine 10 MG tablet Take 1 tablet (10 mg total) by mouth 3 (three) times daily as needed for Muscle Spasms. 12/10/18 12/20/18 Yes Corby Toledo MD lidocaine 5 % Place 1 patch onto the skin daily for 30 days. Remove & Discard patch within 12 hours or as directed by 12/10/18 01/09/19 Yes Corby Toledo MD predniSONE 20 MG tablet Take 2 tablets (40 mg total) by mouth daily for 4 days. 12/10/18 12/14/18 YesCorby Toledo MD amitriptyline 25 MG tablet Take 25 mg by mouth nightly at bedtime. Doc Abstract exemestane 25 MG tablet Take 25 mg by mouth daily with supper. Give with food 08/09/17 Doc Abstract hydrocodone-acetaminophen 7.5-325 MG tablet Take 1-2 tablets by mouth every 4 (four) hours as needed for Pain. Doc Abstract insulin glargine (LANTUS SOLOSTAR) 100 [...] Last attempt to quit: 03/23/1977 Years since quittin.7 ??? Smokeless tobacco: Never Used Substance Use Topics ??? Alcohol use: No ??? Drug use: No Review of Systems Review of Systems Constitutional: Negative for fever. Eyes: Negative for pain. Respiratory: Negative for shortness of breath. Cardiovascular: Negative for chest pain. Genitourinary: Negative for dysuria. Musculoskeletal: Positive for back pain. Negative for myalgias. Skin: Negative for rash. Neurological: Negative for headaches. Psychiatric/Behavioral: The patient is not nervous/anxious. See HPI for further details. All systems negative except as marked. Physical Exam Filed Vitals: 12/09/18 2057 12/09/18 2215 12/09/18 2338 12/10/18 0124 BP: 116/67 106/71 108/54 116/77 Pulse: 98 87 84 Resp: 18 16 Temp: 98.9 ??F (37.2 ??C) TempSrc: Temporal SpO2: 96% 98% 98% 99% Weight: 129.3 kg (285 lb) Height: 5' 1 (1.549 m) Physical Exam Constitutional: She is oriented to person, place, and time. She appears well- developed and well-nourished. No distress. HENT: Head: Normocephalic and atraumatic. Eyes: EOM are normal. Pupils are equal, round, and reactive to light. Neck: Normal range of motion. Cardiovascular: Regular rhythm and intact distal pulses. Pulmonary/Chest: Effort normal and breath sounds normal. No respiratory distress. Abdominal: Soft. Bowel sounds are normal. She exhibits no distension. There is no tenderness. Thereis no rebound. No cva tenderness. Musculoskeletal: Normal range of motion. She exhibits no deformity. Paralumbar pain worse to the right side w/ palpation in L4-S1 region. Neurological: She is alert and oriented to person, place, and time. She displays normal reflexes. No cranial nerve deficit or sensory deficit. Strength w/ ext/flexion of feet wnl, as well as ext/flex at knee. 5/5 and symmetric. Sensation intact to lighttouch throughout , w/ exception of left lower foot w/ diminished. Sensation is intact andsymmetric to light touch and pinch to saddle distribution. Skin: Skin is warm and dry. No rash noted. Psychiatric: She has a normal mood and affect. Vitals reviewed. Diagnostic Studies / Procedures ELECTROCARDIOGRAMS: No results found for this visit on 12/09/18. LABORATORY STUDIES: Results for orders placed or performed during the hospital encounter of 12/09/18 CBC W/DIFF AUTOMATED Result Value Ref Range WBC 8.4 4.5 - 11.0 x10'3/uL RBC 4.56 4.20 - 5.40 x10'6/uL HGB 12.6 12.0 - 16.0 G/DL HCT 40.6 38.0 - 48.0 % MCV 89.0 80.0 - 94.0 FL MCH 27.6 27.0 - 31.0 PG MCHC 31.0 (L) 32.0 - 36.0 G/DL RDW 15.1 (H) 11.5 - 14.5 % PLT 353 130 - 400 x10'3/uL MPV 9.7 9.3 - 12.2 FL DIFFERENTIAL TYPE AUTOMATED DIFFERENTIAL NEUTROPHILS 55.4 % LYMPHOCYTES 31.3 % MONOCYTES 9.9 % EOSINOPHILS 3.0 % BASOPHILS 0.2 % IMMATURE GRANS 0.2 % ABS. NEUTROPHILS TOTAL 4.62 1.80 - 7.70 x10'3/uL ABS. LYMPHOCYTES 2.61 1.00 - 4.80 x10'3/uL ABS. MONOCYTES 0.83 0.24 - 0.86 x10'3/uL ABS. EOSINOPHILS 0.25 0.04 - 0.36 x10'3/uL ABS. BASOPHILS 0.02 0.01 - 0.08 x10'3/uL ABS. IMMATURE GRANULOCYTES 0.02 0.00 - 0.49 x10'3/uL COMPREHENSIVE METABOLIC PANEL Result Value Ref Range GLUCOSE 265 (H) 70 - 99 MG/DL BUN 22 (H) 7 - 18 MG/DL CREATININE 1.16 (H) 0.55 - 1.02 MG/DL SODIUM 135 (L) 136 - 145 MMOL/L POTASSIUM 4.4 3.5 - 5.1 MMOL/L CHLORIDE 102 100 - 108 MMOL/L CO2 28.4 21 - 32 MMOL/L CALCIUM 9.6 8.5 - 10.1 MG/DL TOTAL BILIRUBIN 0.4 0.2 - 1.2 MG/DL TOTAL PROTEIN 8.2 6.4 - 8.2 G/DL ALBUMIN 3.3 (L) 3.4 - 5.0 G/DL AST 18 15 - 37 U/L ALT 25 14 - 55 U/L ALK PHOS 108 50 - 136 U/L ANION GAP 4.6 (L) 5 - 15 MMOL/L BUN CREATININE RATIO 19.0 6 - 26 A/G RATIO 0.7 (L) 1.0 - 2.0 RATIO eGFR Non-Afr. Amer. 50 (L) >90 ML/MIN/1.73 M2 eGFR Afr. Amer. 58 (L) >90 ML/MIN/1.[address] LUMB SPINE WO CON Final Result by User, [id number] (12/09 2230) EXAM: CT LUMBAR SPINE CLINICAL INDICATION: Lumbar radiculopathy, greater than 6 weeks conservative treatment, persistent-progressive symptoms, surgical candidate TECHNIQUE: CT of the lumbar spine was obtained utilizing thin slice axial helical technique without contrast. Additional coronal and sagittal reconstructions were provided. Dose lowering technique was used for this study which may include, but is not limited to, dose reduction techniques, automated exposure control, use of iterative reconstruction and ALARA (As low As Reasonably Achievable)/Image Gently techniques. COMPARISON: 07/16/2018 CT lumbar spine and 09/04/2018 CT abdomen and pelvis FINDINGS: There is no CT evidence of acute lumbar spine fracture. The vertebral bodies maintain satisfactory alignment and body height. Facet alignment is preserved bilaterally. There are multilevel endplate degenerative changes as well as facet arthrosis. This results in very mild apparent minimal spinal canal narrowing at L2-3 through L4-5. The only level at which there is any significant neural foraminal narrowing is at L3-4 on the right. Visible retroperitoneum unremarkable. IMPRESSION: 1. No CT evidence of acute lumbar spine fracture or traumatic malalignment. 2. Mild multilevel degenerative changes. Minimal spinal canal narrowing from L2-3 through L4-5 as can be evaluated by CT. Mild right L3-4 neural foraminal narrowing from facet arthrosis. Please note that MRI is much more sensitive for soft tissue contributions to spinal canal or neural foraminal narrowing. Course / Medical Decision Making MDM Number of Diagnoses or Management Options Amount and/or Complexity of Data Reviewed Clinical lab tests: ordered and reviewed Decide to obtain previous medical records or to obtain history from someone other than the patient:yes Diagnosis management comments: 63-year-old female presents w/ back pain. Pulse oximetry interpreted by me: Pulse oximetry on room air is 98%. Impression normal. Rhythm strip interpreted by me: Normal sinus rhythm, rate of 98bpm. No arrhythmias. Plan: CT exam with degenerative changes. Blood work otherwise unremarkable. Progress notes: -Pt given IM dilaudid for pain control . Pain improved w/ improved ROM. CT scan, labs overall unremarkable.CT suggests significant degenerative disc disease. I suspect radicular pain . I do no suspect acute cord compression/cauda equina based on exam and hx. I did discuss limitations of workup in ED and need for close f/u w/ pain management and PCP, possible need for further referrals or advancedimaging. Plan muscle relaxers, and lidocaine. Plan trial of po steroids, discussing complications including worsening blood glucose. Pt monitors this regularly and discussed expected elevations, if > 300-400 consistently pt will need to stop and adjust insulin accordingly. Pt will have to f/u w/pain management for any adjustments to controlled substances as well. If fever, progressive weakness, numbness, incontinence, or severe refractory pain, prompt return needed. I have discussed today's findings with the patient and provided information regarding the likely diagnosis. The patient has been given information regarding their treatment, follow up and concerning symptoms for which they should seek urgent or emergent attention. I have expressed the the importance of seeking attention should there be any new, or worsening symptoms or persistence of their condition. The patient is stable at discharge and has verbalized understanding of these instructions. Medications HYDROmorphone (DILAUDID) injection 1 mg (1 mg Intramuscular Given 12/09/18 3081) HYDROmorphone (DILAUDID) injection 0.5 mg (0.5 mg Intramuscular Given 12/10/18 3855) Clinical Impression Back pain (Primary) Discharge Medication List as of 12/10/2018 1:02 AM START taking these medications Details cyclobenzaprine 10 MG tablet Take 1 tablet (10 mg total) by mouth 3 (three) times daily as needed for Muscle Spasms., Starting Mon12/10/2018, Until Mon12/20/2018, Print Class: Print Pharmacy: [id number] - [place], [place] - [address] (Ph #: [phone]) lidocaine 5 % Place 1 patch onto the skin daily for 30 days. Remove & Discard patch within 12 hours or as directed by MD, Starting Mon12/10/2018, Until Mon01/09/2019, Print Class: Print Pharmacy: [facility] #[id number] - [place], [place] - [address] AT [address] (Ph #: [phone]) predniSONE 20 MG tablet Take 2 tablets (40 mg total) by mouth daily for 4 days., Starting Mon12/10/2018, Until Mon12/14/2018, Print Class: Print Pharmacy: [facility] #[id number] - [place], [place] - [address] (Ph #: [phone]) Disposition: Discharge Follow-Up: No follow-up provider specified. I, Martha Gentile, acting as a scribe, am personally taking down the notes in the presence of Dr. Corby Toledo MD. Take no action on this note until reviewed and authenticated by the physician. Corby Toledo MD 12/10/18 1512 * Heaven Smith RN - 12/09/2018 10:30 PM CDT Pt reports they gave me the [place] in the waiting room, I have that at home, it doesn't work, that's why I am here. .HEAVEN SMITH RN * Damian Funez PA-C - 12/09/2018 9:02 PM CDT [place], [place] EMERGENCY DEPARTMENT ENCOUNTER Medical Screening Examination 12/09/18 9:02 PM Chief Complaint : Back Pain HPI : Karly Marques is a 63-year-old female who presents 9 month onset of chronic low back painsee dr Storm with pain management, has been getting injections. Pain worse over last 2 days, no relief with home norco. Pain now radiates down leg into bottom. Vital Signs: Filed Vitals: 12/09/182056 BP: 116/67 Pulse: 98 Resp: 18 Temp: 98.9 ??F (37.2 ??C) TempSrc: Temporal SpO2: 96% Weight: 129.3 kg (285 lb) Height: 5' 1 (1.549 m) Physical exam: A brief physical exam was completed to facilitate/expedite patient care. [place] findings include: ttp to low back Plan: Labs & Imaging was ordered to facilitate patient care. Damian Funez PA-C 12/09/182103 * Antonio Boyle RN - 12/09/2018 9:00 PM CDT Patient arrives to ED via wheelchair with c/o lower back pain. Patient states she has had chronic back pain and sees pain management. Patient locates pain to back that radiates to right buttocks. Patient denies any new injury or any falls. Patient rates pain 01/01. Patient a/ox4 and in no respiratory distress at this time. documented in this encounter Plan of Treatment Not on file documented as of this encounter Procedures Procedure Name Priority Date/Time Associated Diagnosis Comments CT LUMB SPINE WO CON STAT 12/09/2018 10:05 PM CDT COMPREHENSIVE METABOLIC PANEL STAT 12/09/2018 9:19 PM CDT CBC W/DIFF AUTOMATED STAT 12/09/2018 9:19 PM CDT documented in this encounter Results * CT LUMB SPINE WO CON (12/09/2018 10:05 PM CDT) Anatomical Region Laterality Modality Spine Computed Tomogra phy 12/09/2018 10:1 4 PM CDT Impressions 12/09/2018 10:30 PM CDT IMPRESSION: 1. No CT evidence of acute lumbar spine fracture or traumatic malalignment. 2. Mild multilevel degenerative changes. Minimal spinal canal narrowing from L2-3 through L4-5 as can be evaluated by CT. Mild right L3-4 neural foraminal narrowing from facet arthrosis. Please note that MRI is much more sensitive for soft tissue contributions to spinal canal or neural foraminal narrowing. Narrative 12/09/2018 10:30 PM CDT EXAM: CT LUMBAR SPINE CLINICAL INDICATION: ??Lumbar radiculopathy, greater than 6 weeks conservative treatment, persistent-progressive symptoms, surgical candidate TECHNIQUE: CT of the lumbar spine was obtained utilizing thin slice axial helical technique without contrast. Additional coronal and sagittal reconstructions were provided. Dose lowering technique was used for this study which may include, but is not limited to, dose reduction techniques, automated exposure control, use of iterative ??reconstruction and ALARA (As low As Reasonably Achievable)/Image Gently techniques. COMPARISON: 07/16/2018 CT lumbar spine and 09/04/2018 CT abdomen and pelvis FINDINGS: There is no CT evidence of acute lumbar spine fracture. ??The vertebral bodies maintain satisfactory alignment and body height. Facet alignment is preserved bilaterally. There are multilevel endplate degenerative changes as well as facet arthrosis. This results in very mild apparent minimal spinal canal narrowing at L2-3 through L4-5. The only level at which there is any significant neural foraminal narrowing is at L3-4 on the right. Visible retroperitoneum unremarkable. Procedure Note Luís Gómez MD - 12/09/2018 EXAM: CT LUMBAR SPINE CLINICAL INDICATION: Lumbar radiculopathy, greater than 6 weeks conservative treatment, persistent-progressive symptoms, surgicalcandidate TECHNIQUE: CT of the lumbar spine was obtained utilizing thin sliceaxial helical technique without contrast. Additional coronal and sagittal reconstructions were provided. Dose lowering technique was used for this study which may include, butis not limited to, dose reduction techniques, automated exposure control,use of iterative reconstruction and ALARA (As low As Reasonably Achievable)/Image Gently techniques. COMPARISON: 07/16/2018 CT lumbar spine and 09/04/2018 CT abdomen andpelvis FINDINGS: There is no CT evidence of acute lumbar spine fracture. The vertebral bodies maintain satisfactory alignment and body height. Facet alignmentis preserved bilaterally. There are multilevel endplate degenerativechanges as well as facet arthrosis. This results in very mild apparent minimal spinal canal narrowing at L2-3 through L4-5. The only level at whichthere is any significant neural foraminal narrowing is at L3-4 on the right. Visible retroperitoneum unremarkable. IMPRESSION: 1. No CT evidence of acute lumbar spine fracture or traumaticmalalignment. 2. Mild multilevel degenerative changes. Minimal spinal canal narrowing from L2-3 through L4-5 as can be evaluated by CT. Mild right L3-4 neural foraminal narrowing from facet arthrosis. Please note that MRI is muchmore sensitive for soft tissue contributions to spinal canal or neuralforaminal narrowing. Damian Funez PA-C CT Final Resul t * (ABNORMAL) COMPREHENSIVE METABOLIC PANEL (12/09/2018 9:19 PM CDT) GLUCOSE 265(H) 70 - 99 MG/DL 12/09/2018 9:53 PM CDT [facility] BUN 22(H) 7 - 18 MG/DL 12/09/2018 9:53 PM CDT [facility] CREATININE S/P/B 1.16(H) 0.55 - 1.02 MG/DL 12/09/2018 9:53 PM CDT [facility] SODIUM S/P/B 135(L) 136 - 145 MMOL/L 12/09/2018 9:53 PM CDT [facility] POTASSIUM S/P/B 4.4 3.5 - 5.1 MMOL/L 12/09/2018 9:53 PM T [facility] CHLORIDE S/P/B 102 100 - 108 MMOL/L 12/09/2018 9:53 PM CDT [facility] CO2 28.4 21 - 32 MMOL/L 12/09/2018 9:53 PM CDT [facility] CALCIUM S/P/B 9.6 8.5 - 10.1 MG/DL 12/09/2018 9:53 PM T [facility] BILIRUBIN TOTAL S/P/B 0.4 0.2 - 1.2 MG/DL 12/09/2018 9:53 PM T [facility] TOTAL PROTEIN S/P/B 8.2 6.4 - 8.2 G/DL 12/09/2018 9:53 PM T [facility] ALBUMIN S/P/B 3.3(L) 3.4 - 5.0 G/DL 12/09/2018 9:53 PM T [facility] AST 18 15 - 37 U/L 12/09/2018 9:53 PM T [facility] ALT 25 14 - 55 U/L 12/09/2018 9:53 PM T [facility] ALKALINE PHOSPHATASE S/P/B 108 50 - 136 U/L 12/09/2018 9:53 PM T [facility] ANION GAP 4.6(L) 5 - 15 MMOL/L 12/09/2018 9:53 PM T [facility] BUN CREATININE RATIO 19.0 6 - 26 12/09/2018 9:53 PM T [facility] A/G RATIO 0.7(L) 1.0 - 2.0 RATIO 12/09/2018 9:53 PM CDT [facility] EGFR NON-AFR. AMER. 50(L) >90 ML/MIN/1.7 3 M2 12/09/2018 9:53 PM CDT [facility] EGFR AFR. AMER. 58(L) >90 ML/MIN/1.7 3 M2 12/09/2018 9:53 PM CDT [facility] Comment: NOTE: eGFR is not calculated for patients <18 years of age. This is an estimated GFR (CKD EPI) and should not be used for calculating drug doses. 12/09/2018 9:19 PM CDT us Damian Funez PA-C LABORATORY Final Resul t [facility] [address] [place] [address], * (ABNORMAL) CBC W/DIFF AUTOMATED (12/09/2018 9:19 PM CDT) WBC 8.4 4.5 - 11.0 x10'3/uL 12/09/2018 9:36 PM CDT [facility] RBC 4.56 4.20 - 5.40 x10'6/uL 12/09/2018 9:36 PM CDT [facility] HGB 12.6 12.0 - 16.0 G/DL 12/09/2018 9:36 PM CDT [facility] HCT 40.6 38.0 - 48.0 % 12/09/2018 9:36 PM CDT [facility] MCV 89.0 80.0 - 94.0 FL 12/09/2018 9:36 PM CDT [facility] MCH 27.6 27.0 - 31.0 PG 12/09/2018 9:36 PM CDT [facility] MCHC 31.0(L) 32.0 - 36.0 G/DL 12/09/2018 9:36 PM CDT [facility] RDW 15.1(H) 11.5 - 14.5 % 12/09/2018 9:36 PM CDT [facility] PLT 353 130 - 400 x10'3/uL 12/09/2018 9:36 PM CDT [facility] MPV 9.7 9.3 - 12.2 FL 12/09/2018 9:36 PM CDT [facility] DIFFERENTIAL TYPE AUTOMATED DIFFERENTIAL 12/09/2018 9:36 PM CDT [facility] NEUTROPHILS % 55.4 % 12/09/2018 9:36 PM CDT [facility] LYMPHOCYTES % 31.3 % 12/09/2018 9:36 PM CDT [facility] MONOCYTES % 9.9 % 12/09/2018 9:36 PM CDT [facility] EOSINOPHILS 3.0 % 12/09/2018 9:36 PM CDT [facility] BASOPHILS 0.2 % 12/09/2018 9:36 PM CDT [facility] IMMATURE GRANS % 0.2 % 12/10/19 9:36 PM CDT [facility] ABS. NEUTROPHILS TOTAL 4.62 1.80 - 7.70 x10'3/uL 12/09/2018 9:36 PM CDT [facility] ABS. LYMPHOCYTES 2.61 1.00 - 4.80 x10'3/uL 12/09/2018 9:36 PM CDT [facility] ABS. MONOCYTES 0.83 0.24 - 0.86 x10'3/uL 12/09/2018 9:36 PM CDT [facility] ABS. EOSINOPHILS 0.25 0.04 - 0.36 x10'3/uL 12/09/2018 9:36 PM CDT [facility] ABS. BASOPHILS 0.02 0.01 - 0.08 x10'3/uL 12/09/2018 9:36 PM CDT [facility] ABS. IMMATURE GRANULOCYTES 0.02 0.00 - 0.49 x10'3/uL 12/09/2018 9:36 PM CDT [facility] 12/09/2018 9:19 PM CDT us Damian Funez PA-C LABORATORY Final Resul t [facility] [address] [place] [address], [place] [phone] documented in this encounter Visit Diagnoses Diagnosis Back pain- Primary Backache, unspecified documented in this encounter Administered Medications Inactive Administered Medications - up to 3 most recent administrations Medication Order MAR Action Action Date Dose Rate Site hydrocodone-acetaminophe n (NORCO) 7.5-325 MG tablet 1 tablet 1 tablet, Oral, Every 6 hours PRN, Moderate pain (Scale 4 - 7), Starting on 12/09/18 at 2102, Until Mon12/10/18 at 0340, Maximum dose of acetaminophen is 4000 mg from all sources in 24 hours. Given 12/09/2018 9:25 PM CDT 1 tablet HYDROmorphone (DILAUDID) injection 0.5 mg 0.5 mg, Intramuscular, Once, 1 dose, On Mon12/10/18 at 0100, Administer slowly over at least 2-3 minutes. Given 12/10/2018 1:33 AM CDT 0.5 mg Right Ventrogluteal HYDROmorphone (DILAUDID) injection 1 mg 1 mg, Intramuscular, Once, 1 dose, On Mon12/09/18 at 2300, Administer slowly over at least 2-3 minutes. Given 12/09/2018 11:22 PM CDT 1 mg Right Deltoid documented in this encounter Active and Recently Administered Medications Times are shown in CDT. Scheduled Medication Order 12/08/2018 12/09/2018 12/10/2018 HYDROmorphone (DILAUDID) injection 0.5 mg (COMPLETED) 0.5 mg, Intramuscular, Once, 1 dose, On 12/10/18 at 0100, Administer slowly over at least 2-3 minutes. 0133 (Given - Provid er: Heaven Smith RN) HYDROmorphone (DILAUDID) injection 1 mg (COMPLETED) 1 mg, Intramuscular, Once, 1 dose, On 12/09/18 at 2300, Administer slowly over at least 2-3 minutes. 2321 (Given - Provider: Heaven Smith, NURIS) PRN Medication Order 12/08/2018 12/09/2018 12/10/2018 hydrocodone-acetaminophen (NORCO) 7.5-325 MG tablet 1 tablet 1 tablet, Oral, Every 6 hours PRN, Moderate pain (Scale 4 - 7), Starting on 12/09/18 at 2102, Until Mon12/10/18 at 0340, Maximum dose of acetaminophen is 4000 mg from all sources in 24 hours. 2124 (Given - Provider: Codie Mcdowell RN) documented in this encounter Additional Health Concerns Infection Onset Date Last Indicated Resolved Time MRSA Comment:MRSA nares pos. 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 [place] [address] PCP - General FAMILY PRACTICE 08/20/17 Meena Bansal MD [address] [place] [address] [employer] Certified Medical Aide CARDIOVASCULAR DISEASE 04/24/16 documented as of this encounter
--- OUTSIDE RECORDS SUMMARY | 2024-04-26 02:41 | XMS_ITS | Encounter Summary ---
Author Organization [facility] Address [address] [place] [address]. [place] [address] [place] [address] Care Team Providers Care Hydrotel Operator Name Role Phone Meena Bansal MD Unavailable [phone] Gerardo Hoffman MD Primary Care Provider [phone] Reason for Referral * Consultation (Routine) - Closed Specialty Diagnoses / Procedures Referred By Contac t Referred To Contact UROLOGY Diagnoses Urinary incontinence, unspecified type Chun Dolan PA-C Phone: tel: fax: Referral ID Status Reason Start Date Expiration Date V isits Requested Visits Authorized [id number] Closed Specialty Services 09/07/2020 10/08/2021 1 1 * Imaging (Emergency) - Closed Specialty Diagnoses / Procedures Referred By Contac t Referred To Contact RADIOLOGY Procedures CT ABD+PEL W Thomas Cordova MD [address] [place] [id number] Phone: tel: fax: Referral ID Status Reason Start Date Expiration Date Visits Re quested Visits Authorized [id number] Closed 09/05/2020 10/06/2021 1 1 * Imaging (Emergency) - Closed Specialty Diagnoses / Procedures Referred By Contac t Referred To Contact RADIOLOGY Procedures CT ABD+PEL WO CON Leah Mackay NP Phone: tel: fax: Referral ID Status Reason Start Date Expiration Date Visits Re quested Visits Authorized [id number] Closed 09/05/2020 10/06/2021 1 1 Reason for Visit * Reason Comments Abdominal Pain Nausea Urinary Symptoms * Auth/Cert Specialty Diagnoses / Procedures Referred By Elyssa t Referred To Contact Diagnoses Abdominal pain Abdominal pain Referral ID Status Reason Start Date Expiration Date Visits Re quested Visits Authorized [id number] 1 1 Encounter Details Date Type Department Care Team (Late st Contact Info) Description 09/05/2020 8:21 PM CDT - 09/07/2020 12:30 PM CDT Emergency [facility] Med/Surg [address]rd [place] [address] Thomas Perry MD [address] [facility] [address] [place] [address] Antonella Mcconnell MD [address] [facility] [place] [address] [phone] (Work) Chun Dolan PA-[place] [address] [place] [address] Abdominal Pain; Nausea; Urinary Symptoms Discharge Disposition: Home or Self Care (Routine [...] Sexual Orientation Straight 03/18/2018 3: 01 AM DIRECTOR OF ADULT EPILEPSY documented as of this encounter Last Filed Vital Signs Vital Sign Reading Time Taken Comments Blood Pressure 111/66 09/07/2020 6:20 AM CDT Pulse 73 09/07/2020 6:20 AM CDT Temperature 36.6 ??C (97.9 ??F) 09/07/2020 6:20 AM CD T Respiratory Rate 20 09/07/2020 6:20 AM CDT Oxygen Saturation 98% 09/07/2020 6:20 AM CDT Inhaled Oxygen Concentration - - Weight 135.3 kg (298 lb 4.5 oz) 021 12:35 AM CDT Height 154.9 cm (5' 1 ) 09/05/2020 8:07 PM CDT Body Mass Index 56.36 09/05/2020 8:07 PM CDT documented in this encounter Functional Status * Question Answer Date of Assessment Author Status Do you have serious difficulty walking or climbing stairs? Yes 09/06/2020 12:55 AM CDT Della Tejada RN A ctive * Question Answer Date of Assessment Author Status Do you have difficulty dressing or bathing? No 09/06/2020 12:55 AM CDT Della Tejada RN Active Because of a physical, mental, or emotional condition, do you have difficulty doing errands alone such as visiting a doctor's office or shopping? Yes 09/06/2020 12:55 AM CDT Della Tejada RN Ac tive * RETIRED Are you deaf or do [...] difficulty concentrating, remembering, or making decisions? No 09/06/2020 12:55 AM CDT Della Tejada RN Active * Because of a physical, mental, or emotional condition, do you have serious difficulty concentrating, remembering, or making decisions? Answer Entry Date Author Status No 09/06/2020 12:55 AM Della Saez RN Active documented in this encounter Discharge Summaries * Chun Dolan PA-C - 09/07/2020 11:11 AM CDT Images from the original note were not included. Hospitalist Discharge Summary Patient ID: Karly Marques. female. 1955. Admit date: 09/05/2020 8:21 PM Discharge date and time: 09/07/20 Admitting Physician: Antonella Mcconnell MD Attending Physician: Chun Dolan PA-C Primary Care Physician: GERARDO HOFFMAN MD Discharge Physician: CHUN DOLAN PA-C Hospital Diagnosis: Abdominal pain Urinary incontinence Admission Condition: poor Discharged Condition: Stable Code Status: Full Code Indication for Admission: Chief Complaint Patient presents with ??? Abdominal Pain ??? Nausea ??? Urinary Symptoms Readmission/Mortality Score at discharge: Low 0-28, Medium 29-58, High >59 LACE+ Score Readmission Score: 73 Male Patient: Urgent Admission: 15 Discharge Institution: Length of Stay: 3 Alternative Level of Care Status: 0 ED Visits in Previous 6 Months: 6 Elective Admission in Previous Year: 0 Comorbidity Score (by age & number of urgent admissions): 49 HPI per admitting provider Karly Marques is a very pleasant 65-year-old female With past medical history significant for HTN, breast CA s/p bilateral mastectomy and radiation in remission, IDDM, frequent UTI's, DVT/PE on xarelto, restless leg syndrome who presents for evaluation of abdominal pain onset 5 days prior to admission. Pt reports the constant 7/10 abdominal severe deep pressure pain onset 3 days prior, located in the suprapubic area and radiating to bilateral lower quadrant. The pain is slightly worse w/ movement but has been constant. Pt notes frequent urination and urgency so significant that she is frequently incontinent of urine. She has chills and 2 episodes of emesis w/ associated nausea today. Pt notes her symptoms feel like a UTI but worst . Previous abdominal surgeries include C/S x 3, right oophorectomy, and cholecystectomy. Pt is full code. In the ED patient was evaluated, white count was 11.7, CT abdomen and pelvis without contrast showed no acute findings, patient continues to have pain after 2 doses of IV morphine and proceeded with CT abdomen pelvis with contrast which showed noacute findings, patient was placed in observation. ?? Patient was admitted to our facility in August 2018 secondary to abdominal pain and had an EGD and colonoscopy by Dr. Sheppard which were both negative. Hospital Course: Patient admitted for intractable abdominal pain. CT abdomen pelvis reveals distended bladder otherwise unremarkable for acute abnormality. Urinalysis with trace blood otherwise unremarkable for infection. Pain control with IV morphine and [place] during admission. Home oxybutynin increased and discharged with Myrbetriq. Abdominal pain improved and nausea and vomiting resolved on day of discharge. Recommend follow-up with urology for urinary incontinence and follow- up with general surgery for evaluation of mesh from prior ventral hernia repair as possible cause of abdominal discomfort. Intractable abdominal pain, urinary incontinence Presents with suprapubic pain/tenderness with urinary frequency/incontinence Hx of chronic urinary incontinence CT abdomen and pelvis with and without contrast showed bladder distention, otherwise no acute findings UA was negative for UTI -trace blood noted Patient history suggestive of bladder spasm, if needed will consult urology In??August 2018 had an EGD and colonoscopy by Dr. Sheppard which were both negative,??and per care everywhere patient had an EGD and colonoscopy at [facility] in December 2019 Home oxybutynin dose increased, we do not have Myrbetriq on formulary Monitor PVRs -no signs of retention Discharge home on Myrbetriq -follow-up with urology for urinary incontinence Follow-up with general surgery for evaluation of mesh implant from prior ventral hernia repair Follow-up with PCP ?? Hypomagnesemia Replete, monitor ?? Leukocytosis Mild Afebrile No signs of infection at this time Resolved Pulmonary nodules Multiple sub-6 mm nodules noted to medial left lung base on CT A&P Noted August 2019 do not appear to be increased in size since Recommend follow-up with PCP for surveillance ?? History of breast cancer: S/p bilateral mastectomy Continue exemestane ?? History of DVT/PE: On anticoagulation with Xarelto, continue ?? IDDM: Continue Lantus Accu-Cheks and insulin protocol ?? Hypertension: Resume home medication follow blood pressure reading ?? Restless leg syndrome: Continue Requip ?? Findings that require further workup: Follow-up with PCP in 1 week, recommend referral to urology and follow-up with general surgery Consults: none Significant Diagnostic Studies: Recent Results (from the past 24 hour(s)) POCT glucose Collection Time: 09/06/20 12:12 PM Result Value Ref Range GLUCOSE POC 98 70 - 99 mg/dL POCT glucose Collection Time: 09/06/20 4:38 PM Result Value Ref Range GLUCOSE POC 113 (H) 70 - 99 mg/dL POCT glucose Collection Time: 09/06/20 9:15 PM Result Value Ref Range GLUCOSE POC 86 70 - 99 mg/dL POCT glucose Collection Time: 09/07/20 6:35 AM Result Value Ref Range GLUCOSE POC 93 70 - 99 mg/dL CBC W/DIFF AUTOMATED Collection Time: 09/07/20 8:35 AM Result Value Ref Range WBC 8.3 4.5 - 11.0 x10'3/uL RBC 4.11 (L) 4.20 - 5.40 x10'6/uL HGB 11.9 (L) 12.0 - 16.0 G/DL HCT 38.7 38.0 - 48.0 % MCV 94.2 (H) 80.0 - 94.0 FL MCH 29.0 27.0 - 31.0 PG MCHC 30.7 (L) 32.0 - 36.0 G/DL RDW 13.8 11.5 - 14.5 % PLT 263 130 - 400 x10'3/uL MPV 9.8 9.3 - 12.2 FL DIFFERENTIAL TYPE AUTOMATED DIFFERENTIAL NEUTROPHILS 65.4 % LYMPHOCYTES 23.0 % MONOCYTES 8.0 % EOSINOPHILS 2.7 % BASOPHILS 0.4 % IMMATURE GRANS 0.5 % ABS. NEUTROPHILS TOTAL 5.44 1.80 - 7.70 x10'3/uL ABS. LYMPHOCYTES 1.91 1.00 - 4.80 x10'3/uL ABS. MONOCYTES 0.66 0.24 - 0.86 x10'3/uL ABS. EOSINOPHILS 0.22 0.04 - 0.36 x10'3/uL ABS. BASOPHILS 0.03 0.01 - 0.08 x10'3/uL ABS. IMMATURE GRANULOCYTES 0.04 0.00 - 0.49 x10'3/uL BASIC METABOLIC PANEL Collection Time: 09/07/20 8:35 AM Result Value Ref Range GLUCOSE 110 (H) 70 - 99 MG/DL BUN 11 7 - 18 MG/DL CREATININE S/P/B 0.76 0.55 - 1.02 MG/DL SODIUM 136 136 - 145 MMOL/L POTASSIUM 4.2 3.5 - 5.1 MMOL/L CHLORIDE S/P/B 104 100 - 108 MMOL/L CO2 30.9 21 - 32 MMOL/L CALCIUM 9.1 8.5 - 10.1 MG/DL ANION GAP 1.1 (L) 5 - 15 MMOL/L BUN CREATININE RATIO 14.5 6 - 26 eGFR Non-Afr. Amer. 83 (L) >90 ML/MIN/1.73 M2 eGFR Afr. Amer. >90 >90 ML/MIN/1.73 M2 Radiology Reports : Narrative: ?? Examination: CT abdomen and pelvis with IV contrast. ?? Clinical Information: SEVERE LOWER AND LEFT SIDE PAIN. ??NONCON NEGATIVE. ?? Comparison: CT earlier the same day 09/05/2020. CTA chest 07/23/2020. 09/05/2019 CT 08/30/2018. ?? Technique: IV contrast: 100 mL Isovue 370. Oral contrast: None. Technical comments: Standard technique. Dose reduction: This CT exam was performed using one or more of the following dose reduction techniques: Automated exposure control, adjustment of the mA and/or kV according to patient size, and/or use of iterative reconstruction technique. ?? Findings: ?? LOWER CHEST Heart is normal in size. Multiple sub-6 mm nodules are again seen in the medial left lung base, unchanged since at least August 2019 but new since August 2018. No pleural or pericardial effusions. ?? UPPER ABDOMEN Liver and bile ducts: No focal liver lesion. ??Portal vein and hepatic veins are patent. No biliary dilatation. Gallbladder: Surgically absent. Pancreas: Normal. Spleen: Normal. ?? RETROPERITONEUM Adrenals: Normal. Kidneys: The kidneys enhance symmetrically with no solid mass or hydronephrosis. A renal cyst again noted. Lymph nodes: No lymphadenopathy in the abdomen or pelvis. ?? BOWEL AND PERITONEUM Bowel: There is no bowel obstruction. The appendix is normal. Sigmoid colon diverticulosis without inflammatory changes. Free air or fluid: None. ?? VASCULATURE The abdominal aorta is normal in caliber. ?? PELVIS No abnormality. ?? BONES/SOFT TISSUES No significant lesion. ?? Impression: ?? Impression: ?? 1. No acute abnormalities identified within the abdomen or pelvis. ?? 2. Multiple sub-6 mm nodules are again seen in the medial left lung base. These are relatively unchanged since August 2019 but new since August 2018. Could evaluate in one year to document two-year stability. ?? 3. Other chronic and nonemergent findings as above. ?? Referred By: THOMAS PERRY ?? Interpreted By: Melvin Lombardi MD, 09/05/2020 10:44 PM ?? CT ABD+PEL WO CON [[id number]] Collected: 09/05/202036 Updated: 09/05/202055 Narrative: ?? EXAMINATION: CT ABDOMEN AND PELVIS WITHOUT CONTRAST ?? HISTORY: Lower mid abdominal and lateral pain. ??Frequent urinations. ??Left lower flank pain and nausea. ?? COMPARISON: CT 06/25/2020. ?? TECHNIQUE: 3 mm axial images were obtained through the abdomen and pelvis without oral or intravenous contrastmaterial. Additional sagittal & coronal reconstructions were performed. ?? FINDINGS: ?? ABDOMEN: Imaging of the lung bases demonstrates no airspace consolidation or effusions. Liver: Normal in size and CT density. Spleen: Normal size and CT density. Pancreas: Normal size and CT density. No duct dilatation. Adrenal Glands: Normal in size and CT density. Gallbladder and bile ducts: Cholecystectomy. No duct dilatation. Kidneys: Normal shape, size and position. No renal stones. No right or left hydronephrosis. Aorta: Normal in caliber. IVC: Normal in caliber. ?? GI Tract: No small bowel obstruction. No intraperitoneal ??or retroperitoneal adenopathy or hematoma. No ascites or pneumoperitoneum is seen. ?? PELVIS: Colon: Colonic diverticulosis without acute diverticulitis. Appendix: Normal. Urinary Bladder: Well distended. Uterus & Adnexa: Unremarkable. Operative changes of the lower ventral abdominal wall mesh repair. ?? BONES: Moderate spondylosis. No distinct destructive bony lesions. ? Impression: ?? IMPRESSION: ?? 1. No acute intra-abdominal or pelvic abnormality to account for reported symptoms. ?? 2. No nephrolithiasis. No acute obstructive uropathy. ?? 3. No bowel obstruction or acute appendicitis. ??Colonic diverticulosis without acute diverticulitis. ? A radiation dose lowering technique was used for this procedure, which may include, but is not limited to, dose reduction technique, automated exposure control, the use of iterative reconstruction, ALARA (As Low As Reasonably Achievable) techniques, and Image Gently techniques. ?? Referred By: ? Interpreted By: Tina Ariza MD, 09/05/2020 8:37 PM Discharge Exam: Filed Vitals: 09/06/20 0446 09/06/20 1524 09/06/20 2120 09/07/20 0620 BP: 99/56 124/68 100/56 111/66 Pulse: 76 77 70 73 Resp: 20 20 20 20 Temp: 98 ??F (36.7 ??C) 97.6 ??F (36.4 ??C) 97.6 ??F (36.4 ??C) 97.9 ??F (36.6 ??C) TempSrc: Oral Oral Oral Oral SpO2: 100% 98% 100% 98% Weight: Height: Physical Exam Constitutional: She is oriented to person, place, and time and well-developed, well-nourished, and in no distress. No distress. HENT: Head: Normocephalic and atraumatic. Eyes: Conjunctivae and EOM are normal. Cardiovascular: Normal rate, regular rhythm and normal heart sounds. Pulmonary/Chest: Effort normal and breath sounds normal. No respiratory distress. Abdominal: Soft. Bowel sounds are normal. She exhibits no distension. There is abdominal tenderness(Minimal suprapubic ). Musculoskeletal: General: No edema. Normal range of motion. Cervical back: Neck supple. Neurological: She is alert and oriented to person, place, and time. Skin: Skin is warm and dry. No erythema. Psychiatric: Affect and judgment normal. Discharge Medications: Medication List START taking these medications mirabegron ER 25 MG 24 hr tablet Commonly known as: Myrbetriq Take 1 tablet (25 mg total) by mouth daily. CHANGE how you take these medications * HYDROcodone-acetaminophen 7.5-325 MG tablet Commonly known as: NORCO What changed: Another medication with the same name was added. Make sure you understand how and when to take each. * HYDROcodone-acetaminophen 7.5-325 MG tablet Commonly known as: NORCO Take 1 tablet by mouth every 6 (six) hours as needed. Indications: Acute Pain < 7 Day Supply What changed: You were already taking a medication with the same name, and this prescription was added. Make sure you understand how and when to take each. * This list has 2 medication(s) that are the same as other medications prescribed for you. Read thedirections carefully, and ask your doctor or other care provider to review them with you. CONTINUE taking these medications amitriptyline 25 MG tablet Commonly known as: ELAVIL exemestane 25 MG tablet Commonly known as: AROMASIN insulin lispro 100 UNIT/ML injection (VIAL) Commonly known as: HUMALOG Lantus SoloStar 100 UNIT/ML injection (PEN) Generic drug: insulin glargine lisinopril 20 MG tablet Commonly known as: PRINIVIL ondansetron 4 MG disintegrating tablet Commonly known as: ZOFRAN-ODT Take 1 tablet (4 mg total) by mouth every 4 (four) hours as needed for Nausea. oxybutynin 5 MG tablet Commonly known as: DITROPAN ROPINIROLE HYDROCHLORIDE 5 MG Tabs Xarelto 20 MG Tabs tablet Generic drug: rivaroxaban Where to Get Your Medications These medications were sent to [id number] - [place], [place] - [address], [place] [address] ?? mirabegron ER 25 MG 24 hr tablet You can get these medications from any pharmacy Bring a paper prescription for each of these medications ?? HYDROcodone-acetaminophen 7.5-325 MG tablet Disposition: Home with self care Time Spent on Discharge: 35 minutes Signed: CHUN DOLAN PA-C Cosigned by Veronica Contreras DO at 09/07/2020 7:16 PM CDT documented in this encounter Medications at [...] by mouth nightly at bedtime. 10/13/19 24 HYDROcodone-acetami nophen 7.5-325 MG tabletIndications:A cute Pain < 7 Day Supply Take 1 tablet by mouth every 6 (six) hours as needed. Indications: Acute Pain < 7 Day Supply 20 tablet 1 09/13/19 21 lisinopril 20 MG tablet Take 20 mg by mouth daily. 10/13/19 24 mirabegron ER (MYRBETRIQ) 25 MG 24 hr tablet Take 1 tablet (25 mg total) by mouth daily. 30 tablet 1 10/13/19 24 ondansetron 4 MG disintegrating tablet Take 1 tablet (4 mg total) by mouth every 4 (four) hours as needed for Nausea. 20 tablet 09/22/19 21 oxybutynin 5 MG tablet Take 5 mg by mouth 2 (two) times daily. 10/13/19 24 documented as of this encounter Progress Notes * Rashel Taylor - 09/07/2020 10:33 AM CDT 09/07/20 1015 Clinical Encounter Type Visited With Patient;Health care provider Total number in room 3 Routine Visit Initial visit Plan of Care Care Plan Initiated Yes;Patient Spiritual care goals begin/continue to experience spiritual support in manner that is comfortable for them Comments Busy; in pain; 3rd time attempted visit; staff present. Spiritual Care interventions Spiritual care plan interventions Provide support to patient/family Sacramental Encounters Communion Patient is currently unable * David Del Toro RN - 09/07/2020 9:53 AM CDT 09/07/20 0952 Referral Data Referral Reason Discharge Planning Source of Information Patient Patient Information Primary Caregiver Self Support System Immediate family Baseline ADL's Functional Status Independent Living Arrangements Children (lives with Marin fuller) Type of Residence Private residence Active DME Walker (cpap (no O2)) Behavior Oriented;Cooperative Communication Talks;Understands speaking;Understands Gu[place] Anticipated DC Plan Living Arrangements Children Support Systems Family members Type of Residence Private residence Patient expects to be discharged to: Home NCM performed bedside interview with pt sitting on side of bed preparing to eat breakfast, Pt name, verified. ? Home: with Marin fuller Ambulation: Reports independent prior to admission. DME products: walker, Cpap ADLs: Reports independent prior to admission. Drives: yes Transport Home: daughter Skin/Bladder/Bowel: No deficits reported. A/O: Answers questions with intent and clarity. Communication: No deficits noted or reported. Home Health: none, and patient declined any home health Occupation: disabled/unemployed Address: Verified as per chart. Pharmacy: [facility] [place] PCP: Gerardo Hoffman Insurance Plan: [facility], Medicaid Financial: Denies any concerns. Discharge needs: No needs identified at this time. Care Coordination Team will provide discharge planning as needed, and will re-evaluate based on recommendations and treatment course. * Chun Dolan PA-C - 09/06/2020 10:24 AM CDT Hospitalist Daily Progress Note Subjective Patient reports pain mildly improved this a.m. Stable on current pain regimen. Patient notes pressure mostly to suprapubic region with associated urinary incontinence/frequency. States that she has seen urology few years ago for urinary incontinence. Denies dysuria or hematuria. No other acute complaints. Objective Filed Vitals: 09/05/20200709/05/20 2130 09/06/20 0035 09/06/20 0446 BP: (!) 155/91 110/75 122/72 99/56 Pulse: 69 76 Resp: 20 20 Temp: 98 ??F (36.7 ??C) 98 ??F (36.7 ??C) TempSrc: Oral Oral SpO2: 97% 100% 100% Weight: 135.3 kg (298 lb 4.5 oz) Height: Physical Exam: Physical Exam Constitutional: She is oriented to person, place, and time. She appears well- developed and well-nourished. Morbidly obese HENT: Head: Normocephalic and atraumatic. Eyes: Conjunctivae and EOM are normal. Cardiovascular: Normal rate, regular rhythm and normal heart sounds. Pulmonary/Chest: Effort normal and breath sounds normal. No respiratory distress. Abdominal: Soft. Bowel sounds are normal. She exhibits no distension. There is abdominal tenderness(Suprapubic region). Musculoskeletal: General: No edema. Normal range of motion. Cervical back: Neck supple. Neurological: She is alert and oriented to person, place, and time. Skin: Skin is warm and dry. No erythema. Psychiatric: She has a normal mood and affect. Her behavior is normal. Intake/Output 24H Total: No intake or output data in the 24 hours ending 09/06/20 1025 Medication ??? amitriptyline 25 mg Oral Nightly at bedtime ??? exemestane 25 mg Oral Daily with supper ??? famotidine 20 mg Intravenous 2 times per day Or ??? famotidine 20 mg Oral 2 times per day ??? insulin glargine 50 Units Subcutaneous QAM ??? insulin lispro 0-14 Units Subcutaneous TID AC And ??? insulin lispro 0-7 Units Subcutaneous Nightly at bedtime ??? lisinopril 20 mg Oral Daily ??? magnesium sulfate 2 g Intravenous Once ??? oxybutynin 5 mg Oral TID ??? rivaroxaban 20 mg Oral QPM ??? rOPINIRole 5 mg Oral Nightly at bedtime ??? lactated ringers 75 mL/hr at 09/06/20 0106 PRN Meds: acetaminophen, HYDROcodone-acetaminophen, morphine, ondansetron Labs: Recent Labs Lab 09/05/20210209/06/20426 NA 137 139 K 3.8 3.7 CL 104 109* CO2 26.6 26.2 AGAP 6.4 3.8* BUN 22* 16 CR 1.00 0.66 BUNCREATININ 22.1 24.2 GFRNON 59* >90 GFR 69* >90 GLU 235* 122* CA 10.0 8.5 MAGNESIUM -- 1.6* Recent Labs Lab 09/05/20210209/06/20426 WBC 11.7* 10.1 RBC 4.51 4.17* HGB 12.9 12.1 HCT 41.8 39.5 MCV 92.7 94.7 MCH 28.6 29.0 MCHC 30.9* 30.6* PLT 312 269 RDW 13.7 13.9 MPV 9.9 9.7 Recent Labs Lab 09/05/202102 AST 22 ALT 29 Recent Labs Lab 09/06/20426 INR 1.3 Invalid input(s): ABG arterial blood gases No results for input(s): TROP, TROPIWB, CPK in the last 168 hours. Invalid input(s): CK-MB No results for input(s): PH, PCO2, PO2, [id number], BICARBWB, BASEDEFICIT, BASEEXCESS in the [id number] hours. X-Ray No results found. Assessment/Plan: Intractable abdominal pain, urinary incontinence Presents with suprapubic pain/tenderness with urinary frequency/incontinence Hx of chronic urinary incontinence CT abdomen and pelvis with and without contrast showed bladder distention, otherwise no acute findings UA was negative for UTI -trace blood noted Patient history suggestive of bladder spasm, if needed will consult urology In August 2018 had an EGD and colonoscopy by Dr. Sheppard which were both negative, and per care everywherepatient had an EGD and colonoscopy at [facility] in December 2019 Home oxybutynin dose increased, we do not have Myrbetriq on formulary Monitor PVRs Consider urology consult Hypomagnesemia Replete, monitor Leukocytosis Mild Afebrile No signs of infection at this time Resolved Pulmonary nodules Multiple sub-6 mm nodules noted to medial left lung base on CT A&P Noted August 2019 do not appear to be increased in size since Recommend follow-up with PCP for surveillance History of breast cancer: S/p bilateral mastectomy Continue exemestane ?? History of DVT/PE: On anticoagulation with Xarelto, continue ?? IDDM: Continue Lantus Accu-Cheks and insulin protocol ?? Hypertension: Resume home medication follow blood pressure reading ?? Restless leg syndrome: Continue Requip ? CODE STATUS full code VTE prophylaxis: On Xarelto CHUN DOLAN PA-C 09/06/2020 10:25 AM Cosigned by Willem Mendez MD at 09/06/2020 3:00 PM CDT * Andi Loya RN - 09/06/2020 5:29 AM CDT Problem: Pain Goal: Patient's pain/discomfort [...] plans and interventions as needed. Outcome: Progressing documented in this encounter H&P Notes * Antonella Mcconnell MD - 09/05/2020 11:24 PM CDT Hospitalist History and Physical Patient: Karly Marques Date: 09/05/2020 female, 65-year-old Admit Date: 09/05/2020 Attending: Thomas Perry MD REASON FOR ADMISSION: Abdominal Pain HISTORY OF PRESENT ILLNESS: Karly Marques is a very pleasant 65-year-old female With past medical history significant for HTN, breast CA s/p bilateral mastectomy and radiation in remission, IDDM, frequent UTI's, DVT/PE on xarelto, restless leg syndrome who presents for evaluation of abdominal pain onset 5 days prior to admission. Pt reports the constant 7/10 abdominal severe deep pressure pain onset 3 days prior, located in the suprapubic area and radiating to bilateral lower quadrant. The pain is slightly worse w/ movement but has been constant. Pt notes frequent urination and urgency so significant that she is frequently incontinent of urine. She has chills and 2 episodes of emesis w/ associated nausea today. Pt notes her symptoms feel like a UTI but worst . Previous abdominal surgeries include C/S x 3, rightoophorectomy, and cholecystectomy. Pt is full code. In the ED patient was evaluated, white count was 11.7, CT abdomen and pelvis without contrast showed no acute findings, patient continues to have pain after 2 doses of IV morphine and proceeded with CT abdomen pelvis with contrast which showed no acute findings, patient was placed in observation. Patient was admitted to our facility in August 2018 secondary to abdominal pain and had an EGD and colonoscopy by Dr. Sheppard which were both negative. Allergy Allergies Allergen Reactions ??? Ativan [Lorazepam] Hyperactive [...] Encounter Medication Sig Dispense Refill ??? amitriptyline 25 MG tablet Take 25 mg by mouth nightly at bedtime. ??? exemestane 25 MG tablet Take 25 mg by mouth daily with supper. Give with food 3 ??? HYDROcodone-acetaminophen 7.5-325 MG tablet Take 1 tablet by mouth every 6 (six) hours as needed. ??? insulin glargine (LANTUS SOLOSTAR) 100 UNIT/ML injection (PEN) Inject 50 Units into the skin every morning. ??? insulin lispro 100 UNIT/ML injection (VIAL) Inject 20-22 Units into the skin see administrationinstructions. 20 units before breakfast. 20 units before lunch. 22 units before dinner. Patient also uses sliding scale: BS>140, add 1 unit for every 15 mg/dl >140 ??? lisinopril 20 MG tablet Take 20 mg by mouth daily. ??? ondansetron 4 MG disintegrating tablet Take 1 tablet (4 mg total) by mouth every 4 (four) hoursas needed for Nausea. 20 tablet 0 ??? ROPINIROLE HYDROCHLORIDE 5 MG Tab Take 5 mg by mouth nightly at bedtime. 3 ??? XARELTO 20 MG Tab tablet Take 20 mg by mouth every evening. ??? albuterol sulfate HFA 108 (90 Base) MCG/ACT inhaler Inhale 2 puffs into the lungs every 4 (four) hours as needed for Shortness of breath. 8 g 0 ??? diclofenac EC 75 MG tablet Take 1 tablet (75 mg total) by mouth 2 (two) times daily as needed (Pain. Please take with meals). 30 tablet 0 ??? oxybutynin 5 MG tablet Take 5 mg by mouth 2 (two) times daily. ??? tiZANidine HCl (ZANAFLEX) 2 MG Cap Take 1 tablet by mouth 3 (three) times daily. 90 capsule 0 Past Medical History Past Medical History: Diagnosis Date ??? Arthritis [...] Neck Past Surgical History: Procedure Laterality Date ??? SECTION ??? CHOLECYSTECTOMY ??? COLONOSCOPY/EGD 09/10/2018 dr sheppard - normal EGD - moderate diverticulosis - mild hemorrhoid ??? HERNIA REPAIR ??? MASTECTOMY ??? TOTAL KNEE ARTHROPLASTY Social History Social History Socioeconomic History ??? Marital status: Spouse name: Not on file ??? Number of children: Not on file ??? Years of education: Not on file ??? Highest education level: Not on file Occupational History ??? Not on file Tobacco Use ??? Smoking status: Former Smoker Quit date: 03/23/1977 Years since quittin.4 ??? Smokeless tobacco: Never Used Substance and Sexual Activity ??? Alcohol use: No ??? Drug use: No ??? Sexual activity: Never Other Topics Concern ??? Not on file Social History Narrative ??? Not on file Social Determinants of Health Financial Resource Strain: ??? Difficulty of Paying Living Expenses: Food Insecurity: ??? Worried About Running Out of Food in the Last Year: ??? Ran Out of Food in the Last Year: Transportation Needs: ??? Lack of Transportation (Medical): ??? Lack of Transportation (Non-Medical): Physical Activity: ??? Days of Exercise per Week: ??? Minutes of Exercise per Session: Stress: ??? Feeling of Stress : Social Connections: ??? Frequency of Communication with Friends and Family: ??? Frequency of Social Gatherings with Friends and Family: ??? Attends Yazidism Services: ??? Active Member of Clubs or Organizations: ??? Attends Club or Organization Meetings: ??? Marital Status: Intimate Partner Violence: ??? Fear of Current or Ex-Partner: ??? Emotionally Abused: ??? Physically Abused: ??? Sexually Abused: Family History Family History Problem Relation Name Age of Onset ??? Aneurysm Mother ??? Diabetes Mother ??? Heart Disease Mother ??? Hyperlipidemia Mother ??? Hypertension Mother ??? Stroke Mother ??? Cancer Father ??? Breast Cancer Sister ??? COPD Breast Cancer Sister ??? Depression Sister ??? Cancer Brother REVIEW OF SYSTEMS: A 14 point review of systems was taken and pertinent positive as per HPI PHYSICAL EXAMINATION: Vital 24 Hour Range Most Recent Value Temperature Temp Min: 98.2 ??F (36.8 ??C) Max: 98.2 ??F (36.8 ??C) 98.2 ??F (36.8 ??C) Pulse Pulse Min: 104 Max: 104 104 Respiratory Resp Min: 22 Max: 22 22 Blood Pressure BP Min: 110/75 Max: 155/91 110/75 Pulse Oximetry SpO2 Min: 96 % Max: 97 % 97 % O2 No data recorded Vital Most Recent Value First Value Weight (!) 136.3 kg (300 lb 7.8 oz) Weight: (!) 136.3 kg (300 lb 7.8 oz) Height 5' 1 (154.9 cm) Height: 5' 1 (154.9 cm) BMI 56.9 N/A Physical Exam: -GENERAL: No acute distress, breathing comfortably on room air. -EYES: Extraocular movements intact -ENT: Neck supple, Septum is midline. -LUNG: Clear to auscultation bilaterally, No wheezes, No crackles -CVS: Regular rate rhythm, S1 and S2 normal, No murmurs, -ABDOMEN: Soft, nondistended, +ve tender, Bowel sounds observed -EXT: no lower Ext edema. -NEURO: Alert, awake, oriented x3, No gross neuro deficit -SKIN: Skin color, texture, turgor normal. No rashes or lesions Intake/Output last 3 shifts: No intake/output data recorded. Labs: Recent Labs Lab 09/05/20 2103 NA 137 K 3.8 CL 104 CO2 26.6 AGAP 6.4 BUN 22* CR 1.00 BUNCREATININ 22.1 GFRNON 59* GFR 69* GLU 235* CA 10.0 Recent Labs Lab 09/05/202102 WBC 11.7* RBC 4.51 HGB 12.9 HCT 41.8 MCV 92.7 MCH 28.6 MCHC 30.9* PLT 312 RDW 13.7 MPV 9.9 Recent Labs Lab 09/05/202102 AST 22 ALT 29 No results for input(s): INR, PTT in the last 168 hours. Invalid input(s): ABG arterial blood gases No results for input(s): TROP, TROPIWB, CPK in the last 168 hours. Invalid input(s): CK-MB No results for input(s): PH, PCO2, PO2, [id number], BICARBWB, BASEDEFICIT, BASEEXCESS in the [id number] hours. Imagining & Other Studies CT ABD+PEL W CON (09/05/2020) 22:52 Impression: 1. No acute abnormalities identified within the abdomen or pelvis. 2. Multiple sub-6 mm nodules are again seen in the medial left lung base. These are relatively unchanged since August 2019 but new since August 2018. Could evaluate in one year todocument two-year stability. 3. Other chronic and nonemergent findings as above. CT ABD+PEL WO CON (09/05/2020) 20:55 Impression: 1. No acute intra-abdominal or pelvic abnormality to account for reported symptoms. 2. No nephrolithiasis. No acute obstructive uropathy. 3. No bowel obstruction or acute appendicitis. Colonic diverticulosis without acute diverticulitis. Assessment & Plan Abdominal pain: Patient placed in observation on medical floor CT abdomen and pelvis with and without contrast showed no acute findings UA was negative for UTI Patient history suggestive of bladder spasm, if needed will consult urology In August 2018 had an EGD and colonoscopy by Dr. Sheppard which were both negative, and per care everywherepatient had an EGD and colon[facility] at [facility] in December 2019 History of breast cancer: S/p bilateral mastectomy Continue exemestane History of DVT/PE: On anticoagulation with Xarelto, continue IDDM: Continue Lantus Accu-Cheks and insulin protocol Hypertension: Resume home medication follow blood pressure reading Restless leg syndrome: Continue Requip CODE STATUS full code Antonella Mcconnell MD 09/05/2020 11:24 PM documented in this encounter Nursing Notes * Fabiola Frost RN - 09/07/2020 8:37 AM CDT 0837 CBC and BMP drawn at bedside. Patient tolerated well. * Brittney Sebastian RN - 09/07/2020 1:17 AM CDT I educated the patient of the use of the bed alarm for fall prevention. She declined its use. documented in this encounter ED Notes * David Coe RN - 09/05/2020 11:02 PM CDT Patient reports continued pain and discomfort. Reports after urinating she still feels like she hasto urinate more, but is unable to. * Aubrie Ron RN - 09/05/2020 8:42 PM CDT Ambulated pt to bathroom to collect UA sample AUBRIE RON RN * Thomas Perry MD - 09/05/2020 8:36 PM CDT Chief Complaint Chief Complaint Patient presents with ??? Abdominal Pain ??? Nausea ??? Urinary Symptoms History of Present Illness This patient is a 65yo female with PMH HTN, DM, DVT/PE on xarelto who presents to the ED for evaluation of abdominal pain. She describes a two day history of suprapubic pain. The pain is described asa severe pressure deep in the suprapubic region. The pain radiates to the left lower quadrant and left flank. It is somewhat worse with movement but has been constant and perpetually worsening to itscurrent severe state. She notes chills but no fever. She has had nausea/vomiting (nonbilious, nonbloody) but no diarrhea, constipation, or GI bleeding. The patient also notes very frequent urination and urgency so significant that she is frequently incontinent of urine. No dysuria. Previous abdominal surgeries include C/S x 3, right oophorectomy, and cholecystectomy. Medical History ALLERGIES: Allergies Allergen Reactions ??? Ativan [Lorazepam] Hyperactive Aggrevates restless leg syndrome ??? Cephalosporins Anaphylaxis ??? Rocephin [Ceftriaxone] Shortness of Breath ??? Levofloxacin Hives ??? Oxycodone Vomiting ??? Reglan [Metoclopramide] Hyperactive ??? Trazodone Other (see comment) Shaky, restlessness, itching, throat swelling MEDICATIONS: Prior to Admission medications Medication Sig Start Date End Date Taking? Authorizing Provider amitriptyline 25 MG tablet Take 25 mg by mouth nightly at bedtime. Yes Doc Abstract exemestane 25 MG tablet Take [...] mg by mouth daily. Yes Doc Abstract oxybutynin 5 MG tablet Take 5 mg by mouth 2 (two) times daily. Yes Doc Abstract ROPINIROLE HYDROCHLORIDE 5 MG Tab Take 5 mg by mouth nightly at bedtime. 07/14/17 Yes Doc Abstract XARELTO 20 MG Tab tablet Take 20 mg by mouth every evening. 07/17/20 Yes Doc Abstract ondansetron 4 MG disintegrating tablet Take 1 tablet (4 mg total) by mouth every 4 (four) hours as needed for Nausea. 06/25/20 Jaswinder Gaytan MD PAST MEDICAL HISTORY: Past [...] SECTION ??? CHOLECYSTECTOMY ??? COLONOSCOPY/EGD 09/10/2018 dr sheppard - normal EGD - moderate diverticulosis - [...] Types: Cigarettes Quit date: 03/23/1977 Years since quittin.4 ??? Smokeless tobacco: Never Used Substance Use Topics ??? Alcohol use: No ??? Drug use: No Review of Systems Review of Systems Constitutional: Positive for chills. Negative for fever. HENT: Negative. Respiratory: Negative. Cardiovascular: Negative. Gastrointestinal: Positive for abdominal pain, nausea and vomiting. Negative for blood in stool, constipation and diarrhea. Genitourinary: Positive for flank pain, frequency and pelvic pain. Negative for dysuria. Skin: Negative. Neurological: Negative. All other systems reviewed and are negative. Physical Exam Filed Vitals: 09/05/20200609/05/20200709/05/20 2130 09/06/20 0035 BP: (!) 155/91 110/75 122/72 Pulse: 104 69 Resp: 22 20 Temp: 98.2 ??F (36.8 ??C) 98 ??F (36.7 ??C) TempSrc: Temporal Oral SpO2: 96% 97% 100% Weight: (!) 136.3 kg (300 lb 7.8 oz) 135.3 kg (298 lb 4.5 oz) Height: 5' 1 (1.549 m) Physical Exam Vitals and nursing note reviewed. Constitutional: Appearance: She is well-developed. Comments: Nontoxic but very uncomfortable. HENT: Head: Normocephalic and atraumatic. Nose: Nose normal. Mouth/Throat: Mouth: Mucous membranes are moist. Eyes: Conjunctiva/sclera: Conjunctivae normal. Pupils: Pupils are equal, round, and reactive to light. Neck: Vascular: No JVD. Trachea: No tracheal deviation. Cardiovascular: Rate and Rhythm: Regular rhythm. Tachycardia present. Heart sounds: Normal heart sounds. Pulmonary: Effort: Pulmonary effort is normal. Breath sounds: Normal breath sounds. Abdominal: General: There is no distension. Palpations: Abdomen is soft. There is no mass. Tenderness: There is abdominal tenderness (Tenderness is noted from the suprapubic region to the left flank.). There is no guarding or rebound. Musculoskeletal: [...] No weakness. Diagnostic Studies / Procedures ELECTROCARDIOGRAMS: No results found for this visit on 09/05/20. LABORATORY STUDIES: Results for orders placed or performed during the hospital encounter of 09/05/20 CBC W/DIFF AUTOMATED Result Value Ref Range WBC 11.7 (H) 4.5 - 11.0 x10'3/uL RBC 4.51 4.20 - 5.40 x10'6/uL HGB 12.9 12.0 - 16.0 G/DL HCT 41.8 38.0 - 48.0 % MCV 92.7 80.0 - 94.0 FL MCH 28.6 27.0 - 31.0 PG MCHC 30.9 (L) 32.0 - 36.0 G/DL RDW 13.7 11.5 - 14.5 % PLT 312 130 - 400 x10'3/uL MPV 9.9 9.3 - 12.2 FL DIFFERENTIAL TYPE AUTOMATED DIFFERENTIAL NEUTROPHILS 68.6 % LYMPHOCYTES 23.3 % MONOCYTES 5.5 % EOSINOPHILS 1.7 % BASOPHILS 0.3 % IMMATURE GRANS 0.6 % ABS. NEUTROPHILS TOTAL 8.01 (H) 1.80 - 7.70 x10'3/uL ABS. LYMPHOCYTES 2.72 1.00 - 4.80 x10'3/uL ABS. MONOCYTES 0.64 0.24 - 0.86 x10'3/uL ABS. EOSINOPHILS 0.20 0.04 - 0.36 x10'3/uL ABS. BASOPHILS 0.03 0.01 - 0.08 x10'3/uL ABS. IMMATURE GRANULOCYTES 0.07 0.00 - 0.49 x10'3/uL COMPREHENSIVE METABOLIC PANEL Result Value Ref Range GLUCOSE 235 (H) 70 - 99 MG/DL BUN 22 (H) 7 - 18 MG/DL CREATININE S/P/B 1.00 0.55 - 1.02 MG/DL SODIUM 137 136 - 145 MMOL/L POTASSIUM 3.8 3.5 - 5.1 MMOL/L CHLORIDE S/P/B 104 100 - 108 MMOL/L CO2 26.6 21 - 32 MMOL/L CALCIUM 10.0 8.5 - 10.1 MG/DL BILIRUBIN TOTAL S/P/B 0.4 0.2 - 1.2 MG/DL TOTAL PROTEIN S/P/B 8.5 (H) 6.4 - 8.2 G/DL ALBUMIN S/P/B 3.4 3.4 - 5.0 G/DL AST 22 15 - 37 U/L ALT 29 14 - 55 U/L ALKALINE PHOSPHATASE S/P/B 100 50 - 136 U/L ANION GAP 6.4 5 - 15 MMOL/L BUN CREATININE RATIO 22.1 6 - 26 A/G RATIO 0.7 (L) 1.0 - 2.0 RATIO eGFR Non-Afr. Amer. 59 (L) >90 ML/MIN/1.73 M2 eGFR Afr. Amer. 69 (L) >90 ML/MIN/1.73 M2 URINALYSIS Result Value Ref Range Specimen Type URINE CLEAN CATCH COLOR (U) LIGHT YELLOW TRANSPARENCY CLEAR Specific [place] (U) 1.024 1.001 - 1.030 U PH 5.0 5.0 - 9.0 LEUKOCYTE ESTERASE NEGATIVE NEGATIVE NITRITES NEGATIVE NEGATIVE PROTEIN (U) NEGATIVE <30 MG/DL URINE GLUCOSE 70 (A) NORMAL MG/DL U KETONES NEGATIVE NEGATIVE MG/DL UROBILINOGEN NORMAL NORMAL MG/DL BILIRUBIN (U) NEGATIVE NEGATIVE MG/DL BLOOD TRACE (A) NEGATIVE CULTURE & SENSITIVITY INDICATED? CULTURE IS NOT INDICATED MUCUS RARE /LPF HYALINE CASTS FEW /LPF RBC/HPF <1 <6 /HPF SQUAMOUS EPITHELIALS RARE /HPF LIPASE Result Value Ref Range LIPASE 203 73 - 393 UNITS/L LACTIC ACID Result Value Ref Range LACTIC ACID 1.3 0.4 - 2.0 MMOL/L POCT glucose Result Value Ref Range GLUCOSE POC 123 (H) 70 - 99 mg/dL IMAGING STUDIES CT ABD+PEL W CON Final Result by User, [id number] (09/05 1143) Examination: CT abdomen and pelvis with IV contrast. Clinical Information: SEVERE LOWER AND LEFT SIDE PAIN. NONCON NEGATIVE. Comparison: CT earlier the same day 09/05/2020. CTA chest 07/23/2020. 09/05/2019 CT 08/30/2018. Technique: IV contrast: 100 mL Isovue 370. Oral contrast: None. Technical comments: Standard technique. Dose reduction: This CT exam was performed using one or more of the following dose reduction techniques: Automated exposure control, adjustment of the mA and/or kV according to patient size, and/or use of iterative reconstruction technique. Findings: LOWER CHEST Heart is normal in size. Multiple sub-6 mm nodules are again seen in the medial left lung base, unchanged since at least August 2019 but new since August 2018. No pleural or pericardial effusions. UPPER ABDOMEN Liver and bile ducts: No focal liver lesion. Portal vein and hepatic veins are patent. No biliary dilatation. Gallbladder: Surgically absent. Pancreas: Normal. Spleen: Normal. RETROPERITONEUM Adrenals: Normal. Kidneys: The kidneys enhance symmetrically with no solid mass or hydronephrosis. A renal cyst again noted. Lymph nodes: No lymphadenopathy in the abdomen or pelvis. BOWEL AND PERITONEUM Bowel: There is no bowel obstruction. The appendix is normal. Sigmoid colon diverticulosis without inflammatory changes. Free air or fluid: None. VASCULATURE The abdominal aorta is normal in caliber. PELVIS No abnormality. BONES/SOFT TISSUES No significant lesion. Impression: 1. No acute abnormalities identified within the abdomen or pelvis. 2. Multiple sub-6 mm nodules are again seen in the medial left lung base. These are relatively unchanged since August 2019 but new since August 2018. Could evaluate in one year to document two-year stability. 3. Other chronic and nonemergent findings as above. Referred By: THOMAS PERRY Interpreted By: Melvin Lombardi MD, 09/05/2020 10:[address] ABD+PEL WO CON Final Result by User, [id number] (09/06 2055) EXAMINATION: CT ABDOMEN AND PELVIS WITHOUT CONTRAST HISTORY: Lower mid abdominal and lateral pain. Frequent urinations. Left lower flank pain and nausea. COMPARISON: CT 06/25/2020. TECHNIQUE: 3 mm axial images were obtained through the abdomen and pelvis without oral or intravenous contrast material. Additional sagittal & coronal reconstructions were performed. FINDINGS: ABDOMEN: Imaging of the lung bases demonstrates no airspace consolidation or effusions. Liver: Normal in size and CT density. Spleen: Normal size and CT density. Pancreas: Normal size and CT density. No duct dilatation. Adrenal Glands: Normal in size and CT density. Gallbladder and bile ducts: Cholecystectomy. No duct dilatation. Kidneys: Normal shape, size and position. No renal stones. No right or left hydronephrosis. Aorta: Normal in caliber. IVC: Normal in caliber. GI Tract: No small bowel obstruction. No intraperitoneal or retroperitoneal adenopathy or hematoma. No ascites or pneumoperitoneum is seen. PELVIS: Colon: Colonic diverticulosis without acute diverticulitis. Appendix: Normal. Urinary Bladder: Well distended. Uterus & Adnexa: Unremarkable. Operative changes of the lower ventral abdominal wall mesh repair. BONES: Moderate spondylosis. No distinct destructive bony lesions. IMPRESSION: 1. No acute intra-abdominal or pelvic abnormality to account for reported symptoms. 2. No nephrolithiasis. No acute obstructive uropathy. 3. No bowel obstruction or acute appendicitis. Colonic diverticulosis without acute diverticulitis. A radiation dose lowering technique was used for this procedure, which may include, but is not limited to, dose reduction technique, automated exposure control, the use of iterative reconstruction, ALARA (As Low As Reasonably Achievable) techniques, and Image Gently techniques. Referred By: Interpreted By: Tina Ariza MD, 09/05/2020 8:37 PM ED Course / Medical Decision Making Workup today is unremarkable. The etiology of her discomfort is unclear. However, she is quite uncomfortable. So, we will admit for pain control and further observation. Clinical Impression Abdominal pain (Primary) Disposition: Admit Thomas Perry MD 09/06/20 0142 * Jane Perez RN - 09/05/2020 8:08 PM CDT Pt to ed from home with low mid abdominal/bladder pain that has been ongoing over last couple days.Pt reports very frequent urinations. Pt also endorses left lower flank pain and nausea. Pt reports hx of kidney stones. documented in this encounter Plan of Treatment Scheduled Referrals Name Type Priority Associated Diagnoses Orde r Schedule Ambulatory referral to Urology Referral Routine Urinary incontinence, unspecified type Ordered: 09/07/2020 documented as of this encounter Procedures Procedure Name Priority Date/Time Associated Diagnosis Comments BASIC METABOLIC PANEL Routine 09/07/2020 8:35 AM CDT CBC W/DIFF AUTOMATED Routine 09/07/2020 8:35 AM CDT POCT GLUCOSE - SAVAGE DOCKED DEVICE Routine 09/07/2020 6:35 AM CDT POCT GLUCOSE - SAVAGE DOCKED DEVICE Routine 09/06/2020 9:15 PM CDT POCT GLUCOSE - SAVAGE DOCKED DEVICE Routine 09/06/2020 4:38 PM CDT POCT GLUCOSE - SAVAGE DOCKED DEVICE Routine 09/06/2020 12:12 PM CDT POCT GLUCOSE - SAVAGE DOCKED DEVICE Routine 09/06/2020 6:10 AM CDT HEMOGLOBIN, GLYCOSYLATED Routine 09/06/2020 4:27 AM CDT PROTHROMBIN TIME, VENOUS Routine 09/06/2020 4:27 AM CDT BASIC METABOLIC PANEL Routine 09/06/2020 4:27 AM CDT CBC W/DIFF AUTOMATED Routine 09/06/2020 4:27 AM CDT THYROID STIM HORMONE TSH Routine 09/06/2020 4:27 AM CDT MAGNESIUM Routine 09/06/2020 4:27 AM CDT POCT GLUCOSE - SAVAGE DOCKED DEVICE Routine 09/06/2020 1:[address] ABD+PEL W CON STAT 09/05/2020 10:2 0 PM CDT HC URINALYSIS AUTO W/O MICRO STAT 09/05/2020 9:03 PM CDT COMPREHENSIVE METABOLIC PANEL STAT 09/05/2020 9:03 PM CDT LACTIC ACID TIMED 09/05/2020 9:03 PM CDT CULTURE, BACTERIA, BLOOD STAT 09/05/2020 9:03 PM CDT CULTURE, BACTERIA, BLOOD STAT 09/05/2020 9:03 PM CDT CBC W/DIFF AUTOMATED STAT 09/05/2020 9:03 PM CDT LIPASE STAT 09/05/2020 9:[address] ABD+PEL WO CON STAT 09/05/2020 8:2 2 PM CDT documented in this encounter Results * (ABNORMAL) BASIC METABOLIC PANEL (09/07/2020 8:35 AM CDT) GLUCOSE 110(H) 70 - 99 MG/DL 09/07/2020 9:23 AM CDT [facility] BUN 11 7 - 18 MG/DL 09/07/2020 9:23 AM CDT [facility] CREATININE S/P/B 0.76 0.55 - 1.02 MG/DL 09/07/2020 9:23 AM CDT [facility] SODIUM S/P/B 136 136 - 145 MMOL/L 09/07/2020 9:23 AM CDT [facility] POTASSIUM S/P/B 4.2 3.5 - 5.1 MMOL/L 09/07/2020 9:23 AM CDT [facility] CHLORIDE S/P/B 104 100 - 108 MMOL/L 09/07/2020 9:23 AM CDT [facility] CO2 30.9 21 - 32 MMOL/L 09/07/2020 9:23 AM CDT [facility] CALCIUM S/P/B 9.1 8.5 - 10.1 MG/DL 09/07/2020 9:23 AM CDT [facility] ANION GAP 1.1(L) 5 - 15 MMOL/L 09/07/2020 9:23 AM CDT [facility] BUN CREATININE RATIO 14.5 6 - 26 09/07/2020 9:23 AM CDT [facility] EGFR NON-AFR. AMER. 83(L) >90 ML/MIN/1.7 3 M2 09/07/2020 9:23 AM CDT [facility] EGFR AFR. AMER. >90 >90 ML/MIN/1.7 3 M2 09/07/2020 9:23 AM CDT [facility] Comment: NOTE: eGFR is not calculated for patients <18 years of age. This is an estimated GFR (CKD EPI) and should not be used for calculating drug doses. 09/07/2020 8:35 AM CDT Chun Dolan PA-C LABORATORY Final Result [facility] [address] [place] [address], * (ABNORMAL) CBC W/DIFF AUTOMATED (09/07/2020 8:35 AM CDT) WBC 8.3 4.5 - 11.0 x10'3/uL 09/07/2020 8:53 AM CDT [facility] RBC 4.11(L) 4.20 - 5.40 x10'6/uL 09/07/2020 8:53 AM CDT [facility] HGB 11.9(L) 12.0 - 16.0 G/DL 09/07/2020 8:53 AM CDT [facility] HCT 38.7 38.0 - 48.0 % 09/07/2020 8:53 AM CDT [facility] MCV 94.2(H) 80.0 - 94.0 FL 09/07/2020 8:53 AM CDT [facility] MCH 29.0 27.0 - 31.0 PG 09/07/2020 8:53 AM CDT [facility] MCHC 30.7(L) 32.0 - 36.0 G/DL 09/07/2020 8:53 AM CDT [facility] RDW 13.8 11.5 - 14.5 % 09/07/2020 8:53 AM CDT [facility] PLT 263 130 - 400 x10'3/uL 09/07/2020 8:53 AM CDT [facility] MPV 9.8 9.3 - 12.2 FL 09/07/2020 8:53 AM CDT [facility] DIFFERENTIAL TYPE AUTOMATED DIFFERENTIAL 09/07/2020 8:53 AM CDT [facility] NEUTROPHILS % 65.4 % 09/07/2020 8:53 AM CDT [facility] LYMPHOCYTES % 23.0 % 09/07/2020 8:53 AM CDT [facility] MONOCYTES % 8.0 % 09/07/2020 8:53 AM CDT [facility] EOSINOPHILS 2.7 % 09/07/2020 8:53 AM CDT [facility] BASOPHILS 0.4 % 09/07/2020 8:53 AM CDT [facility] IMMATURE GRANS % 0.5 % 09/08/19 8:53 AM CDT [facility] ABS. NEUTROPHILS TOTAL 5.44 1.80 - 7.70 x10'3/uL 09/07/2020 8:53 AM CDT [facility] ABS. LYMPHOCYTES 1.91 1.00 - 4.80 x10'3/uL 09/07/2020 8:53 AM CDT [facility] ABS. MONOCYTES 0.66 0.24 - 0.86 x10'3/uL 09/07/2020 8:53 AM CDT [facility] ABS. EOSINOPHILS 0.22 0.04 - 0.36 x10'3/uL 09/07/2020 8:53 AM CDT [facility] ABS. BASOPHILS 0.03 0.01 - 0.08 x10'3/uL 09/07/2020 8:53 AM CDT [facility] ABS. IMMATURE GRANULOCYTES 0.04 0.00 - 0.49 x10'3/uL 09/07/2020 8:53 AM CDT [facility] 09/07/2020 8:35 AM CDT Chun Redzic PA-C LABORATORY Final Result Performing Organization Address City/[facility]/ZIP Co de Phone Number [facility] [address] [place] [address], [place] [phone] * POCT glucose (09/07/2020 6:35 AM CDT) GLUCOSE POC 93 70 - 99 mg/dL 09/07/2020 6:39 AM CDT [facility] 09/07/2020 6:35 AM CDT Chun Redzic PA-C POCT ORDERABLES - DEVICE Final Result Performing Organization Address City/[facility] Co de Phone Number [facility] [address] [place] [address], [place] [phone] * POCT glucose (09/06/2020 9:15 PM CDT) GLUCOSE POC 86 70 - 99 mg/dL 09/06/2020 9:59 PM CDT [facility] 09/06/2020 9:15 PM CDT Chun Redzic PA-C POCT ORDERABLES - DEVICE Final Result Performing Organization Address City/[facility]/ZIP Co de Phone Number [facility] [address] [place] [address], [place] [phone] * (ABNORMAL) POCT glucose (09/06/2020 4:38 PM CDT) GLUCOSE POC 113(H) 70 - 99 mg/dL 09/06/2020 6:24 PM CDT [facility] 09/06/2020 4:38 PM CDT Chun Redzic PA-C POCT ORDERABLES - DEVICE Final Result Performing Organization Address [facility]/ZIP Co de Phone Number [facility] [address] [place] [address], [place] [phone] * POCT glucose (09/06/2020 12:12 PM CDT) GLUCOSE POC 98 70 - 99 mg/dL 09/06/2020 12:14 PM CDT [facility] 09/06/2020 12:1 2 PM CDT us Chun Redzic PA-C POCT ORDERABLES - DEVICE Final Result Performing Organization Address City/[facility]/ZIP Co de Phone Number [facility] [address] [place] [address], [place] [phone] * (ABNORMAL) POCT glucose (09/06/2020 6:10 AM CDT) GLUCOSE POC 134(H) 70 - 99 mg/dL 09/06/2020 6:18 AM CDT [facility] 09/06/2020 6:10 AM CDT Antonella Mcconnell MD POCT ORDERABLES - DEVICE Fi nal Result [facility] [address] [place] [address], * (ABNORMAL) BASIC METABOLIC PANEL (09/06/2020 4:27 AM CDT) GLUCOSE 122(H) 70 - 99 MG/DL 09/06/2020 5:11 AM CDT [facility] BUN 16 7 - 18 MG/DL 09/06/2020 5:11 AM CDT [facility] CREATININE S/P/B 0.66 0.55 - 1.02 MG/DL 09/06/2020 5:11 AM CDT [facility] SODIUM S/P/B 139 136 - 145 MMOL/L 09/06/2020 5:11 AM CDT [facility] POTASSIUM S/P/B 3.7 3.5 - 5.1 MMOL/L 09/06/2020 5:11 AM CDT [facility] CHLORIDE S/P/B 109(H) 100 - 108 MMOL/L 09/06/2020 5:11 AM CDT [facility] CO2 26.2 21 - 32 MMOL/L 09/06/2020 5:11 AM CDT [facility] CALCIUM S/P/B 8.5 8.5 - 10.1 MG/DL 09/06/2020 5:11 AM CDT [facility] ANION GAP 3.8(L) 5 - 15 MMOL/L 09/06/2020 5:11 AM CDT [facility] BUN CREATININE RATIO 24.2 6 - 26 09/06/2020 5:11 AM CDT [facility] EGFR NON-AFR. AMER. >90 >90 ML/MIN/1.7 3 M2 09/06/2020 5:11 AM CDT [facility] EGFR AFR. AMER. >90 >90 ML/MIN/1.7 3 M2 09/06/2020 5:11 AM CDT [facility] Comment: NOTE: eGFR is not calculated for patients <18 years of age. This is an estimated GFR (CKD EPI) and should not be used for calculating drug doses. 09/06/2020 4:27 AM CDT Antonella Mcconnell MD LABORATORY Final Resul t Performing Organization Address City/[facility] Co de Phone Number [facility] [address] [place] [address], [place] [phone] * THYROID STIM HORMONE, TSH (09/06/2020 4:27 AM CDT) TSH 2.920 0.358 - 3.74 uIU/ML 09/06/2020 5:11 AM CDT [facility] Comment: HIGH DOSES OF BIOTIN MAY INTERFERE WITH THIS TEST RESULT. CORRELATION TO CLINICAL HISTORY AND PRESENTATION RECOMMENDED. 09/06/2020 4:27 AM CDT Antonella Mcconnell MD LABORATORY Final Resul t Performing Organization Address City/[facility]/ZIP Co de Phone Number [facility] [address] [place] [address], [place] [phone] * (ABNORMAL) HEMOGLOBIN, GLYCATED (09/06/2020 4:27 AM CDT) HGB A1C 7.8(H) <5.7 % 09/06/2020 5:28 AM CDT [facility] Comment: ADA GUIDELINES 2010 5.7 TO 6.4% INCREASED RISK OF DIABETES > OR = 6.5% CONSISTENT WITH DIABETES ESTIMATED AVG GLUCOSE 177 mg/dL 09/06/2020 5:28 AM CDT [facility] 09/06/2020 4:27 AM CDT us Antonella Mcconnell MD LABORATORY Final Resul t Performing Organization Address [facility] de Phone Number [facility] [address] [place] [address], [place] [phone] * (ABNORMAL) MAGNESIUM (09/06/2020 4:27 AM CDT) MAGNESIUM 1.6(L) 1.8 - 2.4 MG/DL 09/06/2020 5:11 AM CDT [facility] 09/06/2020 4:27 AM CDT us Antonella Mcconnell MD LABORATORY Final Resul t Performing Organization Address [facility] de Phone Number [facility] [address] [place] [address], [place] [phone] * (ABNORMAL) PROTHROMBIN TIME, VENOUS (09/06/2020 4:27 AM CDT) PROTIME 15.4(H) 10.2 - 12.9 SEC 09/06/2020 4:55 AM CDT [facility] INR 1.3 09/06/2020 4:55 AM CDT [facility] Comment: Recommended INR Therapeutic Goals: ??2.0-3.0 Routine Therapy ??2.5-3.5 Mechanical Prosthetic Valves (High Risk) 09/06/2020 4:27 AM CDT us Antonella Mcconnell MD LABORATORY Final Resul t Performing Organization Address City/[facility] Co de Phone Number [facility] [address] [place] [address], [place] [phone] * (ABNORMAL) CBC W/DIFF AUTOMATED (09/06/2020 4:27 AM CDT) [facility] WBC 10.1 4.5 - 11.0 x10'3/uL 09/06/2020 4:41 AM CDT [facility] RBC 4.17(L) 4.20 - 5.40 x10'6/uL 09/06/2020 4:41 AM CDT [facility] HGB 12.1 12.0 - 16.0 G/DL 09/06/2020 4:41 AM CDT [facility] HCT 39.5 38.0 - 48.0 % 09/06/2020 4:41 AM CDT [facility] MCV 94.7 81.0 - 99.0 FL 09/06/2020 4:41 AM CDT [facility] MCH 29.0 27.0 - 31.0 PG 09/06/2020 4:41 AM CDT [facility] MCHC 30.6(L) 32.0 - 36.0 G/DL 09/06/2020 4:41 AM CDT [facility] RDW 13.9 11.5 - 14.5 % 09/06/2020 4:41 AM CDT [facility] PLT 269 130 - 400 x10'3/uL 09/06/2020 4:41 AM CDT [facility] MPV 9.7 9.3 - 12.2 FL 09/06/2020 4:41 AM CDT [facility] DIFFERENTIAL TYPE AUTOMATED DIFFERENTIAL 09/06/2020 4:41 AM CDT [facility] NEUTROPHILS % 59.4 % 09/06/2020 4:41 AM CDT [facility] LYMPHOCYTES % 30.4 % 09/06/2020 4:41 AM CDT [facility] MONOCYTES % 7.0 % 09/06/2020 4:41 AM CDT [facility] EOSINOPHILS 2.2 % 09/06/2020 4:41 AM CDT [facility] BASOPHILS 0.4 % 09/06/2020 4:41 AM CDT [facility] IMMATURE GRANS % 0.6 % 09/07/19 4:41 AM CDT [facility] ABS. NEUTROPHILS TOTAL 6.00 1.80 - 7.70 x10'3/uL 09/06/2020 4:41 AM CDT [facility] ABS. LYMPHOCYTES 3.07 1.00 - 4.80 x10'3/uL 09/06/2020 4:41 AM CDT [facility] ABS. MONOCYTES 0.71 0.24 - 0.86 x10'3/uL 09/06/2020 4:41 AM CDT [facility] ABS. EOSINOPHILS 0.22 0.04 - 0.36 x10'3/uL 09/06/2020 4:41 AM CDT [facility] ABS. BASOPHILS 0.04 0.01 - 0.08 x10'3/uL 09/06/2020 4:41 AM CDT [facility] ABS. IMMATURE GRANULOCYTES 0.06 0.00 - 0.49 x10'3/uL 09/06/2020 4:41 AM CDT [facility] 09/06/2020 4:27 AM CDT us Antonella Mcconnell MD LABORATORY Final Resul t [facility] [address] [place] [address], [place] [phone] * (ABNORMAL) POCT glucose (09/06/2020 1:03 AM CDT) GLUCOSE POC 123(H) 70 - 99 mg/dL 09/06/2020 1:19 AM CDT [facility] 09/06/2020 1:03 AM CDT Antonella Mcconnell MD POCT ORDERABLES - DEVICE Fi nal Result [facility] [address] [place] [address], [place] [phone] * CT ABD+PEL W CON (09/05/2020 10:20 PM CDT) Anatomical Region Laterality Modality Abdomen Computed Tomogra phy 09/05/2020 10:4 4 PM CDT Impressions 09/05/2020 10:52 PM CDT Impression: 1. No acute abnormalities identified within the abdomen or pelvis. 2. Multiple sub-6 mm nodules are again seen in the medial left lung base. These are relatively unchanged since August 2019 but new since August 2018. Could evaluate in one year to document two-year stability. 3. Other chronic and nonemergent findings as above. Referred By: THOMAS PERRY Interpreted By: Melvin Lombardi MD, 09/05/2020 10:44 PM Narrative 09/05/2020 10:52 PM CDT Examination: CT abdomen and pelvis with IV contrast. Clinical Information: SEVERE LOWER AND LEFT SIDE PAIN. ??NONCON NEGATIVE. Comparison: CT earlier the same day 09/05/2020. CTA chest 07/23/2020. 09/05/2019 CT 08/30/2018. Technique: IV contrast: 100 mL Isovue 370. Oral contrast: None. Technical comments: Standard technique. Dose reduction: This CT exam was performed using one or more of the following dose reduction techniques: Automated exposure control, adjustment of the mA and/or kV according to patient size, and/or use of iterative reconstruction technique. Findings: LOWER CHEST Heart is normal in size. Multiple sub-6 mm nodules are again seen in the medial left lung base, unchanged since at least August 2019 but new since August 2018. No pleural or pericardial effusions. UPPER ABDOMEN Liver and bile ducts: No focal liver lesion. ??Portal vein and hepatic veins are patent. No biliary dilatation. Gallbladder: Surgically absent. Pancreas: Normal. Spleen: Normal. RETROPERITONEUM Adrenals: Normal. Kidneys: The kidneys enhance symmetrically with no solid mass or hydronephrosis. A renal cyst again noted. Lymph nodes: No lymphadenopathy in the abdomen or pelvis. BOWEL AND PERITONEUM Bowel: There is no bowel obstruction. The appendix is normal. Sigmoid colon diverticulosis without inflammatory changes. Free air or fluid: None. VASCULATURE The abdominal aorta is normal in caliber. PELVIS No abnormality. BONES/SOFT TISSUES No significant lesion. Procedure Note Melvin Lombardi MD - 09/05/2020 Examination: CT abdomen and pelvis with IV contrast. Clinical Information: SEVERE LOWER AND LEFT SIDE PAIN. NONCON NEGATIVE. Comparison: CT earlier the same day 09/05/2020. CTA chest 07/23/2020. 09/05/2019 CT 08/30/2018. Technique: IV contrast: 100 mL Isovue 370. Oral contrast: None. Technical comments: Standard technique. Dose reduction: This CT exam was performed using one or more of the following dose reduction techniques: Automated exposure control,adjustment of the mA and/or kV according to patient size, and/or use of iterative reconstruction technique. Findings: LOWER CHEST Heart is normal in size. Multiple sub-6 mm nodules are again seen in the medial left lung base, unchanged since at least August 2019 but new sinceAugust 2018. No pleural or pericardial effusions. UPPER ABDOMEN Liver and bile ducts: No focal liver lesion. Portal vein and hepaticveins are patent. No biliary dilatation. Gallbladder: Surgically absent. Pancreas: Normal. Spleen: Normal. RETROPERITONEUM Adrenals: Normal. Kidneys: The kidneys enhance symmetrically with no solid mass or hydronephrosis. A renal cyst again noted. Lymph nodes: No lymphadenopathy in the abdomen or pelvis. BOWEL AND PERITONEUM Bowel: There is no bowel obstruction. The appendix is normal. Sigmoidcolon diverticulosis without inflammatory changes. Free air or fluid: None. VASCULATURE The abdominal aorta is normal in caliber. PELVIS No abnormality. BONES/SOFT TISSUES No significant lesion. Impression: 1. No acute abnormalities identified within the abdomen or pelvis. 2. Multiple sub-6 mm nodules are again seen in the medial left lungbase. These are relatively unchanged since August 2019 but new since August 2018.Could evaluate in one year to document two-year stability. 3. Other chronic and nonemergent findings as above. Referred By: THOMAS PERRY Interpreted By: Melvin Lombardi MD, 09/05/2020 10:44 PM Thomas Perry MD CT Final Re sult * LACTIC ACID (09/05/2020 9:03 PM CDT) LACTIC ACID VENOUS 1.3 0.4 - 2.0 MMOL/L 09/05/2020 9:30 PM CDT [facility] 09/05/2020 9:03 PM CDT Thomas Perry MD LABORATORY Final Re sult [facility] [address] [place] [address], [place] [phone] * CULTURE, BACTERIA, BLOOD (09/05/2020 9:03 PM CDT) SPEC DESCRIPTION BLOOD 09/05/2020 8:31 PM CDT [facility] SPECIAL REQUESTS NO SPECIAL REQUEST 09/05/2020 8:31 PM CDT [facility] CULTURE RESULT NO GROWTH 5 DAYS 09/10/2020 1:43 PM CDT [facility] BLOOD SPECIMEN OBTAINED FOR BLOOD CULTURE / Unknown 09/05/2020 9:03 PM CDT 09/05/2020 9:10 PM CDT Thomas Perry MD MICROBIOLOGY - GENERAL O RDERABLES Final Result [facility] [address] [place] [address], * CULTURE, BACTERIA, BLOOD (09/05/2020 9:03 PM CDT) SPEC DESCRIPTION BLOOD 09/05/2020 8:31 PM CDT [facility] SPECIAL REQUESTS NO SPECIAL REQUEST 09/05/2020 8:31 PM CDT [facility] CULTURE RESULT NO GROWTH 5 DAYS 09/10/2020 1:43 PM CDT [facility] BLOOD SPECIMEN OBTAINED FOR BLOOD CULTURE / Unknown 09/05/2020 9:03 PM CDT 09/05/2020 9:10 PM CDT Thomas Perry MD MICROBIOLOGY - GENERAL O RDERABLES Final Result Performing Organization Address City/[facility]/ZIP Co de Phone Number [facility] [address] [place] [address], [place] [phone] * LIPASE (09/05/2020 9:03 PM CDT) LIPASE 203 73 - 393 UNITS/L 09/05/2020 9:25 PM CDT [facility] 09/05/2020 9:03 PM CDT us Thomas Perry MD LABORATORY Final Re sult [facility] [address] [place] [address], [place] [phone] * (ABNORMAL) URINALYSIS (09/05/2020 9:03 PM CDT) SPECIMEN TYPE URINE CLEAN CATCH 09/05/2020 9:02 PM CDT [facility] COLOR (U) LIGHT YELLOW 09/05/2020 9:24 PM CDT [facility] TRANSPARENCY CLEAR 09/05/2020 9:24 PM CDT [facility] SPECIFIC GRAVITY (U) 1.024 1.001 - 1.030 09/05/2020 9:24 PM CDT [facility] U PH 5.0 5.0 - 9.0 09/05/2020 9:24 PM CDT [facility] LEUKOCYTES (U) NEGATIVE NEGATIVE 09/05/2020 9:24 PM CDT [facility] NITRITES NEGATIVE NEGATIVE 09/05/2020 9:24 PM CDT [facility] PROTEIN (U) NEGATIVE <30 MG/DL 09/05/2020 9:24 PM CDT [facility] URINE GLUCOSE 70(A) NORMAL MG/DL 09/05/2020 9:24 PM CDT [facility] KETONES MG/DL (U) NEGATIVE NEGATIVE MG/DL 09/05/2020 9:24 PM T [facility] UROBILINOGEN NORMAL NORMAL MG/DL 09/05/2020 9:24 PM CDT [facility] BILIRUBIN (U) NEGATIVE NEGATIVE MG/DL 09/05/2020 9:24 PM CDT [facility] BLOOD (U) TRACE(A) NEGATIVE 09/05/2020 9:24 PM CDT [facility] CULTURE & SENSITIVITY INDICATED? CULTURE IS NOT INDICATED 09/05/2020 9:24 PM T [facility] MUCUS RARE /LPF 09/05/2020 9:24 PM CDT [facility] HYALINE CASTS FEW /LPF 09/05/2020 9:24 PM CDT [facility] RBC/HPF <1 <6 /HPF 09/05/2020 9:24 PM CDT [facility] SQUAMOUS EPITHELIALS RARE /HPF 09/05/2020 9:24 PM CDT [facility] URINE SPECIMEN OBTAINED BY CLEAN CATCH PROCEDURE / Unknown 09/05/2020 9:03 PM CDT us Leah Mackay [employer] URINE ORDERABLES Final Result [facility] [address] [place] [address], * (ABNORMAL) COMPREHENSIVE METABOLIC PANEL (09/05/2020 9:03 PM CDT) GLUCOSE 235(H) 70 - 99 MG/DL 09/05/2020 10:04 PM CDT [facility] BUN 22(H) 7 - 18 MG/DL 09/05/2020 10:04 PM CDT [facility] CREATININE S/P/B 1.00 0.55 - 1.02 MG/DL 09/05/2020 10:04 PM CDT [facility] SODIUM S/P/B 137 136 - 145 MMOL/L 09/05/2020 10:04 PM CDT [facility] POTASSIUM S/P/B 3.8 3.5 - 5.1 MMOL/L 09/05/2020 10:04 PM CDT [facility] CHLORIDE S/P/B 104 100 - 108 MMOL/L 09/05/2020 10:04 PM CDT [facility] CO2 26.6 21 - 32 MMOL/L 09/05/2020 10:04 PM [facility] CALCIUM S/P/B 10.0 8.5 - 10.1 MG/DL 09/05/2020 10:04 PM [facility] BILIRUBIN TOTAL S/P/B 0.4 0.2 - 1.2 MG/DL 09/05/2020 10:04 PM [facility] Comment: THIS ASSAY IS NOT RECOMMENDED FOR PATIENTS UNDERGOING TREATMENT WITH ELTROMBOPAG DUE TO THE POTENTIAL FOR FALSELY ELEVATED RESULTS. TOTAL PROTEIN S/P/B 8.5(H) 6.4 - 8.2 G/DL 09/05/2020 10:04 PM [facility] ALBUMIN S/P/B 3.4 3.4 - 5.0 G/DL 09/05/2020 10:04 PM [facility] AST 22 15 - 37 U/L 09/05/2020 10:04 PM [facility] ALT 29 14 - 55 U/L 09/05/2020 10:04 PM [facility] ALKALINE PHOSPHATASE S/P/B 100 50 - 136 U/L 09/05/2020 10:04 PM [facility] ANION GAP 6.4 5 - 15 MMOL/L 09/05/2020 10:04 PM [facility] BUN CREATININE RATIO 22.1 6 - 26 09/05/2020 10:04 PM [facility] A/G RATIO 0.7(L) 1.0 - 2.0 RATIO 09/05/2020 10:04 PM [facility] EGFR NON-AFR. AMER. 59(L) >90 ML/MIN/1.7 3 M2 09/05/2020 10:04 PM T [facility] EGFR AFR. AMER. 69(L) >90 ML/MIN/1.7 3 M2 09/05/2020 10:04 PM CDT [facility] Comment: NOTE: eGFR is not calculated for patients <18 years of age. This is an estimated GFR (CKD EPI) and should not be used for calculating drug doses. 09/05/2020 9:03 PM CDT Leah Mackay NP LABORATORY Final Result [facility] [address] [place] [address], * (ABNORMAL) CBC W/DIFF AUTOMATED (09/05/2020 9:03 PM CDT) WBC 11.7(H) 4.5 - 11.0 x10'3/uL 09/05/2020 9:18 PM CDT [facility] RBC 4.51 4.20 - 5.40 x10'6/uL 09/05/2020 9:18 PM CDT [facility] HGB 12.9 12.0 - 16.0 G/DL 09/05/2020 9:18 PM CDT [facility] HCT 41.8 38.0 - 48.0 % 09/05/2020 9:18 PM CDT [facility] MCV 92.7 80.0 - 94.0 FL 09/05/2020 9:18 PM CDT [facility] MCH 28.6 27.0 - 31.0 PG 09/05/2020 9:18 PM CDT [facility] MCHC 30.9(L) 32.0 - 36.0 G/DL 09/05/2020 9:18 PM CDT [facility] RDW 13.7 11.5 - 14.5 % 09/05/2020 9:18 PM CDT [facility] PLT 312 130 - 400 x10'3/uL 09/05/2020 9:18 PM CDT [facility] MPV 9.9 9.3 - 12.2 FL 09/05/2020 9:18 PM CDT [facility] DIFFERENTIAL TYPE AUTOMATED DIFFERENTIAL 09/05/2020 9:18 PM CDT [facility] NEUTROPHILS % 68.6 % 09/05/2020 9:18 PM CDT [facility] LYMPHOCYTES % 23.3 % 09/05/2020 9:18 PM CDT [facility] MONOCYTES % 5.5 % 09/05/2020 9:18 PM CDT [facility] EOSINOPHILS 1.7 % 09/05/2020 9:18 PM CDT [facility] BASOPHILS 0.3 % 09/05/2020 9:18 PM CDT [facility] IMMATURE GRANS % 0.6 % 09/06/19 9:18 PM CDT [facility] ABS. NEUTROPHILS TOTAL 8.01(H) 1.80 - 7.70 x10'3/uL 09/05/2020 9:18 PM CDT [facility] ABS. LYMPHOCYTES 2.72 1.00 - 4.80 x10'3/uL 09/05/2020 9:18 PM CDT [facility] ABS. MONOCYTES 0.64 0.24 - 0.86 x10'3/uL 09/05/2020 9:18 PM CDT [facility] ABS. EOSINOPHILS 0.20 0.04 - 0.36 x10'3/uL 09/05/2020 9:18 PM CDT [facility] ABS. BASOPHILS 0.03 0.01 - 0.08 x10'3/uL 09/05/2020 9:18 PM CDT [facility] ABS. IMMATURE GRANULOCYTES 0.07 0.00 - 0.49 x10'3/uL 09/05/2020 9:18 PM CDT [facility] 09/05/2020 9:03 PM CDT Leah Mackay NP LABORATORY Final Result [facility] [address] [place] [address], * CT ABD+PEL WO CON (09/05/2020 8:22 PM CDT) Anatomical Region Laterality Modality Abdomen Computed Tomogra phy 09/05/2020 8:37 PM CDT Impressions 09/05/2020 8:55 PM CDT IMPRESSION: 1. No acute intra-abdominal or pelvic abnormality to account for reported symptoms. 2. No nephrolithiasis. No acute obstructive uropathy. 3. No bowel obstruction or acute appendicitis. ??Colonic diverticulosis without acute diverticulitis. A radiation dose lowering technique was used for this procedure, which may include, but is not limited to, dose reduction technique, automated exposure control, the use of iterative reconstruction, ALARA (As Low As Reasonably Achievable) techniques, and Image Gently techniques. Referred By: ?? Interpreted By: Tina Ariza MD, 09/05/2020 8:37 PM Narrative 09/05/2020 8:55 PM CDT EXAMINATION: CT ABDOMEN AND PELVIS WITHOUT CONTRAST HISTORY: Lower mid abdominal and lateral pain. ??Frequent urinations. ??Left lower flank pain and nausea. COMPARISON: CT 06/25/2020. TECHNIQUE: 3 mm axial images were obtained through the abdomen and pelvis without oral or intravenous contrast material. Additional sagittal & coronal reconstructions were performed. FINDINGS: ABDOMEN: Imaging of the lung bases demonstrates no airspace consolidation or effusions. Liver: Normal in size and CT density. Spleen: Normal size and CT density. Pancreas: Normal size and CT density. No duct dilatation. Adrenal Glands: Normal in size and CT density. Gallbladder and bile ducts: Cholecystectomy. No duct dilatation. Kidneys: Normal shape, size and position. No renal stones. No right or left hydronephrosis. Aorta: Normal in caliber. IVC: Normal in caliber. ?? GI Tract: No small bowel obstruction. No intraperitoneal ??or retroperitoneal adenopathy or hematoma. No ascites or pneumoperitoneum is seen. PELVIS: Colon: Colonic diverticulosis without acute diverticulitis. Appendix: Normal. Urinary Bladder: Well distended. Uterus & Adnexa: Unremarkable. Operative changes of the lower ventral abdominal wall mesh repair. BONES: Moderate spondylosis. No distinct destructive bony lesions. Procedure Note Prince Ariza MD - 09/05/2020 EXAMINATION: CT ABDOMEN AND PELVIS WITHOUT CONTRAST HISTORY: Lower mid abdominal and lateral pain. Frequent urinations. Left lowerflank pain and nausea. COMPARISON: CT 06/25/2020. TECHNIQUE: 3 mm axial images were obtained through the abdomen and pelvis withoutoral or intravenous contrast material. Additional sagittal & coronalreconstructions were performed. FINDINGS: ABDOMEN: Imaging of the lung bases demonstrates no airspace consolidation oreffusions. Liver: Normal in size and CT density. Spleen: Normal size and CT density. Pancreas: Normal size and CT density. No duct dilatation. Adrenal Glands: Normal in size and CT density. Gallbladder and bile ducts: Cholecystectomy. No duct dilatation. Kidneys: Normal shape, size and position. No renal stones. No right orleft hydronephrosis. Aorta: Normal in caliber. IVC: Normal in caliber. GI Tract: No small bowel obstruction. No intraperitoneal or retroperitoneal adenopathy or hematoma. No ascites or pneumoperitoneum is seen. PELVIS: Colon: Colonic diverticulosis without acute diverticulitis. Appendix: Normal. Urinary Bladder: Well distended. Uterus & Adnexa: Unremarkable. Operative changes of the lower ventral abdominal wall mesh repair. BONES: Moderate spondylosis. No distinct destructive bony lesions. IMPRESSION: 1. No acute intra-abdominal or pelvic abnormality to account for reportedsymptoms. 2. No nephrolithiasis. No acute obstructive uropathy. 3. No bowel obstruction or acute appendicitis. Colonic diverticulosiswithout acute diverticulitis. A radiation dose lowering technique was used for this procedure, which mayinclude, but is not limited to, dose reduction technique, automatedexposure control, the use of iterative reconstruction, ALARA (As Low AsReasonably Achievable) techniques, and Image Gently techniques. Referred By: Interpreted By: Tina Ariza MD, 09/05/2020 8:37 PM Leah Mackay NP CT Final Result documented in this encounter Visit Diagnoses Diagnosis Abdominal pain- Primary Abdominal pain, unspecified site Abdominal pain Abdominal pain, unspecified site Urinary incontinence, unspecified type Lower abdominal pain Abdominal pain, other specified site documented in this encounter Admitting Diagnoses Diagnosis Abdominal pain Abdominal pain, unspecified site documented in this encounter Administered Medications Inactive Administered Medications - up to 3 most recent administrations Medication Order MAR Action Action Date Dose Rate Site amitriptyline (ELAVIL) tablet 25 mg 25 mg, Oral, Nightly at bedtime, First dose on 09/06/20 at 0130, Until Discontinued Given 09/06/2020 9:25 PM CDT 25 mg Given 09/06/2020 1:26 AM CDT 25 mg exemestane (AROMASIN) tablet 25 mg 25 mg, Oral, Daily with supper, First dose (after last reorder) on 09/06/20 at 1700, Until Discontinued, Administration by approved chemotherapy RN only.Give with food Given 09/06/2020 4:39 PM CDT 25 mg famotidine (PEPCID) injection 20 mg 20 mg, Intravenous, Every 12 hours scheduled (2 times per day), First dose on 09/06/20 at 0900, Until Discontinued, Give if unable to take PO. IV Push over 2 minutes famotidine (PEPCID) tablet 20 mg 20 mg, Oral, Every 12 hours scheduled (2 times per day), First dose on 09/06/20 at 0900, Until Discontinued Given 09/07/2020 8:26 AM CDT 20 mg Given 09/06/2020 9:26 PM CDT 20 mg Given 09/06/2020 8:29 AM CDT 20 mg HYDROcodone-acetaminophen (NORCO) 7.5-325 MG tablet 1 tablet 1 tablet, Oral, Every 6 hours PRN, Moderate pain (Scale 4 - 7), Starting on 09/06/20 at 0109, Until 09/07/20 at 1434, Maximum dose of acetaminophen is 4000 mg from all sources in 24 hours. Given 09/07/2020 10:16 AM CDT 1 tab let Given 09/06/2020 8:07 PM CDT 1 tablet Given 09/06/2020 8:39 AM CDT 1 tablet insulin glargine (LANTUS) injection 50 Units 50 Units, Subcutaneous, Every morning, First dose on 09/06/20 at 0700, Until Discontinued Given 09/06/2020 6:20 AM CDT 50 Units Right Arm insulin lispro (HUMALOG) injection 0-14 Units 0-14 Units, Subcutaneous, 3 times daily before meals, First dose on 09/06/20 at 0700, Until Discontinued, Blood Glucose (SENSITIVE Dosing): [Less than 70:? Initiate Hypoglycemia Standing Orders] [71-140: 0 units] [141-180: 2 units] [181-220: 4 units] [221-260: 6 units] [261-300: 8 units] [301-350: 10 units] [351-400: 12 units] [Greater than 400: 14 units and Call Physician] insulin lispro (HUMALOG) injection 0-7 Units 0-7 Units, Subcutaneous, Nightly at bedtime, First dose on 09/06/20 at 0115, Until Discontinued, Blood Glucose (SENSITIVE Dosing): [Less than 70:? Initiate Hypoglycemia Standing Orders] [71-180: ? 0 units] [181-220:? 2 units] [221-260:? 3 units] [261-300:? 4 units] [301-350:? 5 units] [351-400:? 6 units] [Greater than 400:? 7 units and Call Physician] iopamidol (ISOVUE-370) 76 % injection 100 mL 100 mL, Intravenous, IMG once as needed, Contrast, 1 dose, Starting on 5/15/21 at 2220, Until 09/05/20 at 2220 Given 09/05/2020 10:20 PM CDT 100 mLs Right Arm lactated ringers infusion at 75 mL/hr, Intravenous, Continuous, Starting on 09/06/20 at 0115, Until Mon09/07/20 at 0114 New Bag 09/06/2020 4:43 PM CDT 75 mL/hr New Bag 09/06/2020 1:06 AM CDT 75 mL/hr lisinopril (PRINIVIL) tablet 20 mg 20 mg, Oral, Daily, First dose on 09/06/20 at 0900, Until Discontinued Given 09/07/2020 8:26 AM CDT 20 mg Given 09/06/2020 8:29 AM CDT 20 mg magnesium sulfate IVPB 2 g 2 g, Intravenous, at 25 mL/hr, Once, 1 dose, On 09/06/20 at 0815 New Bag 09/06/2020 8:30 AM CDT 2 g 25 mL/hr morphine injection 4 mg 4 mg, Intravenous, Once, 1 dose, On 09/05/20 at 2030 Given 09/05/2020 9:11 PM CDT 4 mg morphine injection 4 mg 4 mg, Intravenous, Once, 1 dose, On 09/05/20 at 2330 Given 09/05/2020 11:52 PM CDT 4 mg morphine injection 4 mg 4 mg, Intravenous, Every 3 hours PRN, Severe pain (Scale 8 - 10), Starting on 09/06/20 at 0046, Until Mon09/07/20 at 1434 Given 09/07/2020 6:31 AM CDT 4 mg Given 09/06/2020 2:02 PM CDT 4 mg Given 09/06/2020 4:24 AM CDT 4 mg ondansetron (ZOFRAN) injection 4 mg 4 mg, Intravenous, Once, 1 dose, On 09/05/20 at 2030, IV push over 2-5 minutes. Given 09/05/2020 9:12 PM CDT 4 mg ondansetron (ZOFRAN) injection 4 mg 4 mg, Intravenous, Every 8 hours PRN, Nausea, Vomiting, Starting on 09/06/20 at 0046, Until Mon09/07/20 at 1434, IV push over 2-5 minutes. Given 09/06/2020 1:34 PM CDT 4 mg oxybutynin (DITROPAN) tablet 5 mg 5 mg, Oral, 2 times daily, First dose on 09/06/20 at 0900, Until Discontinued Given 09/06/2020 8:29 AM CDT 5 mg oxybutynin (DITROPAN) tablet 5 mg 5 mg, Oral, 3 times daily, First dose (after last modification) on 09/06/20 at 1600, Until Discontinued Given 09/07/2020 8:26 AM CDT 5 mg Given 09/06/2020 9:26 PM CDT 5 mg Given 09/06/2020 3:52 PM CDT 5 mg rivaroxaban (XARELTO) tablet 20 mg 20 mg, Oral, Every evening, First dose on 09/06/20 at 0130, Until Discontinued Given 09/06/2020 9:25 PM CDT 20 mg Given 09/06/2020 1:26 AM CDT 20 mg rOPINIRole (REQUIP) tablet 5 mg 5 mg, Oral, Nightly at bedtime, First dose on 09/06/20 at 2100, Until Discontinued Given 09/06/2020 9:26 PM CDT 5 mg sodium chloride 0.9% bolus infusion SOLN 1,000 mL 1,000 mL, Intravenous, Administer over 15 Minutes, Once, 1 dose, On 09/05/20 at 2015 New Bag 09/05/2020 9:11 PM CDT 1,000 mLs documented in this encounter Active and Recently Administered Medications Times are shown in CDT. Scheduled Medication Order 09/05/2020 09/06/2020 09/07/2020 amitriptyline (ELAVIL) tablet 25 mg 25 mg, Oral, Nightly at bedtime, First dose on 09/06/20 at 0130, Until Discontinued 125 (Given - Provider: Andi Loya RN)2124 (Given - Provider: Brittney Sebastian RN) exemestane (AROMASIN) tablet 25 mg 25 mg, Oral, Daily with supper, First dose (after last reorder) on 09/06/20 at 1700, Until Discontinued, Administration by approved chemotherapy RN only.Give with food 1639 (Given - Provider: Flavia Khan RN) famotidine (PEPCID) injection 20 mg(Linked Group 1) 20 mg, Intravenous, Every 12 hours scheduled (2 times per day), First dose on 09/06/20 at 0900, Until Discontinued, Give if unable to take PO. IV Push over 2 minutes 08 (See Alternative - Provider: Flavia Khan RN)2125 (See Alternative - Provider: Brittney Sebastian, RN) 08 (See Alternative - Provider: Fabiola Frost RN) famotidine (PEPCID) tablet 20 mg(Linked Group 1) 20 mg, Oral, Every 12 hours scheduled (2 times per day), First dose on 09/06/20 at 0900, Until Discontinued 08 (Given - Provider: Flavia Khan RN)2125 (Given - Provider: Brittney Sebastian, NURIS) 825 (Given - Provider: Fabiola Frost, NURIS) insulin glargine (LANTUS) injection 50 Units 50 Units, Subcutaneous, Every morning, First dose on 09/06/20 at 0700, Until Discontinued 0620 (Given - Provider: Andi Loya RN) 0756 (Not Given - Provider: Fabiola Frost RN - Reason: Order parameters not met - Comment: patient bs 93) insulin lispro (HUMALOG) injection 0-14 Units(Linked Group 2) 0-14 Units, Subcutaneous, 3 times daily before meals, First dose on 09/06/20 at 0700, Until Discontinued, Blood Glucose (SENSITIVE Dosing): [Less than 70:? Initiate Hypoglycemia Standing Orders] [71-140: 0 units] [141-180: 2 units] [181-220: 4 units] [221-260: 6 units] [261-300: 8 units] [301-350: 10 units] [351-400: 12 units] [Greater than 400: 14 units and Call Physician] 0620 (Not Given - Provider: Andi Loya RN - Reason: Order parameters not met)1319 (Not Given - Provider: Flavia Khan RN - Reason: Order parameters not met)1640 (Not Given - Provider: lFavia Khan RN - Reason: Order parameters not met) 0756 (Not Given - Provider: Fabiola Frost RN - Reason: Order parameters not met - Comment: pt blood sugar 93)1132 (Not Given - Provider: Fabiola Frost RN - Reason: Patient/family declined - Comment: pt states she has been running low, does not want stuck again, will pick back up on checking bs when she gets home shortly. pt is dc shortly.) insulin lispro (HUMALOG) injection 0-7 Units(Linked Group 2) 0-7 Units, Subcutaneous, Nightly at bedtime, First dose on 09/06/20 at 0115, Until Discontinued, Blood Glucose (SENSITIVE Dosing): [Less than 70:? Initiate Hypoglycemia Standing Orders] [71-180: ? 0 units] [181-220:? 2 units] [221-260:? 3 units] [261-300:? 4 units] [301-350:? 5 units] [351-400:? 6 units] [Greater than 400:? 7 units and Call Physician] 0103 (Not Given - Provider: Andi Loya RN - Reason: Order parameters not met)2127 (Not Given - Provider: Brittney Sebastian RN - Reason: Order parameters not met) lisinopril (PRINIVIL) tablet 20 mg 20 mg, Oral, Daily, First dose on 09/06/20 at 0900, Until Discontinued 0829 (Given - Provider: Flavia Khan RN) 0826 (Given - Provider: Fabiola Frost RN) magnesium sulfate IVPB 2 g (COMPLETED) 2 g, Intravenous, at 25 mL/hr, Once, 1 dose, On 09/06/20 at 0815 0830 (New Bag - Provider: Flavia Khan, NURIS)1030 (Infusion Stop Time - Provider: Flavia Khan RN) morphine injection 4 mg (COMPLETED) 4 mg, Intravenous, Once, 1 dose, On 09/05/20 at 2030 2111 (Given - Provider: David Coe RN) morphine injection 4 mg (COMPLETED) 4 mg, Intravenous, Once, 1 dose, On 09/05/20 at 2330 2352 (Given - Provider: David Coe, RN) ondansetron (ZOFRAN) injection 4 mg (COMPLETED) 4 mg, Intravenous, Once, 1 dose, On 09/05/20 at 2030, IV push over 2-5 minutes. 2111 (Given - Provider: David Coe, NURIS) oxybutynin (DITROPAN) tablet 5 mg (CANCELED) 5 mg, Oral, 2 times daily, First dose on 09/06/20 at 0900, Until Discontinued 08 (Given - Provider: Flavia Khan, NURIS) oxybutynin (DITROPAN) tablet 5 mg 5 mg, Oral, 3 times daily, First dose (after last modification) on 09/06/20 at 1600, Until Discontinued 155 (Given - Provider: Flavia Khan, NURIS)2125 (Given - Provider: Brittney Sebastian RN) 08 (Given - Provider: Fabiola Frost RN) rivaroxaban (XARELTO) tablet 20 mg 20 mg, Oral, Every evening, First dose on 09/06/20 at 0130, Until Discontinued 012 (Given - Provider: Andi Loya RN)2124 (Given - Provider: Brittney Sebastian, NURIS) rOPINIRole (REQUIP) tablet 5 mg 5 mg, Oral, Nightly at bedtime, First dose on 09/06/20 at 2100, Until Discontinued 2125 (Given - Provider: Brittney Sebastian, NURIS) sodium chloride 0.9% bolus infusion SOLN 1,000 mL (COMPLETED) 1,000 mL, Intravenous, Administer over 15 Minutes, Once, 1 dose, On 09/05/20 at 2015 211 (New Bag - Provider: David Coe, NURIS)2301 (Infusion Stop Time - Provider: David Coe RN) Continuous Medication Order 09/05/2020 09/06/2020 09/07/2020 lactated ringers infusion at 75 mL/hr, Intravenous, Continuous, Starting on 09/06/20 at 0115, Until 09/07/20 at 0114 0106 (New Bag - Provider: Anali Loya RN)1643 (New Bag - Provider: Flavia Khan, RN) PRN Medication Order 09/05/2020 09/06/2020 09/07/2020 acetaminophen (TYLENOL) tablet 650 mg 650 mg, Oral, Every 4 hours PRN, Mild pain (Scale 1 - 3), Headaches, Fever, Starting on 09/06/20 at 0046, Until 09/07/20 at 1434, Maximum dose of acetaminophen is 4000 mg from all sources in 24 hours. HYDROcodone-acetaminophe n (NORCO) 7.5-325 MG tablet 1 tablet 1 tablet, Oral, Every 6 hours PRN, Moderate pain (Scale 4 - 7), Starting on 09/06/20 at 0109, Until 09/07/20 at 1434, Maximum dose of acetaminophen is 4000 mg from all sources in 24 hours. 0839 (Given - Provider: Flavia Khan, RN)2007 (Given - Provider: Brittney Sebastian, RN) 1016 (Given - Provider: Fabiola Frost RN) iopamidol (ISOVUE-370) 76 % injection 100 mL (COMPLETED) 100 mL, Intravenous, IMG once as needed, Contrast, 1 dose, Starting on 09/05/20 at 2220, Until 09/05/20 at 2220 2220 (Given - Provider: Carolina Huston, RTR) morphine injection 4 mg 4 mg, Intravenous, Every 3 hours PRN, Severe pain (Scale 8 - 10), Starting on 09/06/20 at 0046, Until 09/07/20 at 1434 0424 (Given - Provider: Andi Loya RN)1402 (Given - Provider: Flavia Khan, NURIS) 0631 (Given - Provider: Brittney Sebastian, NURIS) ondansetron (ZOFRAN) injection 4 mg 4 mg, Intravenous, Every 8 hours PRN, Nausea, Vomiting, Starting on 09/06/20 at 0046, Until 09/07/20 at 1434, IV push over 2-5 minutes. 1334 (Given - Provider: Flavia Khan, RN) Linked Groups Order Group 1: famotidine (PEPCID) injection 20 mgJump to med 20 mg, Intravenous, Every 12 hours scheduled (2 times per day), First dose on 09/06/20 at 0900, Until Discontinued, Give if unable to take PO. IV Push over 2 minutes Or famotidine (PEPCID) tablet 20 mgJump to med 20 mg, Oral, Every 12 hours scheduled (2 times per day), First dose on 09/06/20 at 0900, Until Discontinued Group 2: insulin lispro (HUMALOG) injection 0-14 UnitsJump to med 0-14 Units, Subcutaneous, 3 times daily before meals, First dose on 09/06/20 at 0700, Until Discontinued, Blood Glucose (SENSITIVE Dosing): [Less than 70:? Initiate Hypoglycemia Standing Orders] [71-140: 0 units] [141-180: 2 units] [181-220: 4 units] [221-260: 6 units] [261-300: 8 units] [301-350: 10 units] [351-400: 12 units] [Greater than 400: 14 units and Call Physician] And insulin lispro (HUMALOG) injection 0-7 UnitsJump to med 0-7 Units, Subcutaneous, Nightly at bedtime, First dose on 09/06/20 at 0115, Until Discontinued, Blood Glucose (SENSITIVE Dosing): [Less than 70:? Initiate Hypoglycemia Standing Orders] [71-180: ? 0 units] [181-220:? 2 units] [221-260:? 3 units] [261-300:? 4 units] [301-350:? 5 units] [351- 400:? 6 units] [Greater than 400:? 7 units and Call Physician] documented in this encounter Care Teams Hydrotel Operator Relationship Specialty Start Date End Date [facility] [place] [address] PCP - General FAMILY PRACTICE 08/20/17 Meena Bansal [facility] [place], [place] [address] [place] [employer] Electric[employer] CARDIOVASCULAR DISEASE 04/24/16 documented as of this encounter
--- OUTSIDE RECORDS SUMMARY | 2024-04-26 02:41 | XMS_ITS | Encounter Summary ---
Author Organization [facility] Address [address] [place] [address]. [place] [address] [place] [address] Care Team Providers Care Settlement Technician Name Role Phone Meena Bansal MD Unavailable [phone] Justen Gale MD Primary Care Provider [phone] Encounter Details Date Type Department Care Team (Latest Contact Info) Description 06/25/2020 Travel Social History Tobacco Use Types Packs/Day [...] Sexual Orientation Straight 03/18/2018 3: 01 AM [facility] COVID-19 Exposure Response Date Recorded In the last month, have you been in contact with someone who was confirmed or suspected to have Coronavirus / COVID-19? No / Unsure 06/25/2020 3:18 PM [employer] [employer] documented as of this encounter Functional Status [...] pos. 02/201808/31/2018 08/31/2018 07/02/19 21 2:54 AM [employer] documented as of this encounter Care Teams Settlement Technician Relationship Specialty Start Date End Date Justen Gale MD [address] [facility] [address] [place] [address] PCP - General FAMILY PRACTICE 08/20/17 Meena Bansal MD [address] [facility] [address] [place] [address] [place] [employer] Work[employer] CARDIOVASCULAR DISEASE 04/24/16 documented as of this encounter
--- OUTSIDE RECORDS SUMMARY | 2024-04-26 02:41 | XMS_ITS | Encounter Summary ---
Author Organization [facility] Address [address] [place] [address]. [place] [address] [place] [address] Care Team Providers Care Administrative Associate Name Role Phone Meena Bansal MD Unavailable [phone] Justen Gale MD Primary Care Provider [phone] Reason for Referral * Imaging (Emergency) - Closed Specialty Diagnoses / Procedures Referred By Elyssa benavides Referred To Contact RADIOLOGY Procedures MRI LUMB SPINE WWO CON Thomas Alvarado MD [address] [address] Phone: tel: fax: Referral ID Status Reason Start Date Expiration Date Visits Re quested Visits Authorized [id number] Closed 07/09/2020 08/09/2021 1 1 Reason for Visit * Reason Comments Back Pain Generalized Body Aches Encounter Details Date Type Department Care Team (Late st Contact Info) Description 07/09/2020 10:09 PM CDT - 07/10/2020 1:01 PM CDT Emergency [facility] Emergency Room [place], [place] [id number] Thomas Alvarado MD [address] [id number] Peter Schwartz MD [address] [place] [address] Back Pain; Generalized Body Aches Discharge Disposition: Home or Self Care (Routine [...] Orientation Straight 03/18/2018 3: 01 AM [employer] COVID-19 Exposure Response Date Recorded In the last month, have you been in contact with someone who was confirmed or suspected to have Coronavirus / COVID-19? No / Unsure 07/09/2020 9:59 PM CDT documented as of this encounter Last Filed Vital Signs Vital Sign Reading Time Taken Comments Blood Pressure 109/61 07/10/2020 12:45 PM CDT Pulse 82 07/10/2020 11:40 AM CDT Temperature 36.8 ??C (98.2 ??F) 07/09/2020 10:05 PM C DT Respiratory Rate 18 07/10/2020 3:50 AM CDT Oxygen Saturation 94% 07/10/2020 12:45 PM CDT Inhaled Oxygen Concentration - - [...] through Care Everywhere. * Sacroiliac Joint Pain (Thai) documented in this encounter Medications at Time [...] by mouth nightly at bedtime. 10/13/19 24 lisinopril 20 MG tablet Take [...] mouth 3 (three) times daily. 90 capsule 1 09/06/19 21 traMADol (ULTRAM) 50 MG tabletIndications:A cute Pain < 7 Day Supply Take 1 tablet (50 mg total) by mouth every 6 (six) hours as needed for Pain. Indications: Acute Pain < 7 Day Supply 10 tablet 1 07/14/19 21 documented as of this encounter ED Notes * Alicia Caldera RN - 07/10/2020 1:01 PM CDT Provider discussed today's findings with the patient/family. The patient has been given informationregarding their treatment, follow up and concerning symptoms for which they should seek urgent or emergent attention. I have expressed the the importance of seeking attention should there be any new,or worsening symptoms or persistence of their condition. Patient verbalized understanding of the discharge instructions. * Alicia Caldera RN - 07/10/2020 9:33 AM CDT Patient to MRI. * Peter Schwartz MD - 07/10/2020 8:48 AM CDT Chief Complaint Chief Complaint Patient presents with ??? Back Pain ??? Generalized Body Aches History of Present Illness Back Pain Associated symptoms: weakness Associated symptoms: no fever, no headaches and no numbness This patient is a 65yo WF with PMH HTN, DM, chronic low back pain who presents to the ED for evaluation of severe pain. She describes a two day history of severe, diffuse low back pain not controlledwith norco. In addition, she notes diffuse myalgias and malaise. The patient states that she is unable to ambulate, though it is unclear if this is due to pain or true weakness. She denies any recent falls. She denies saddle anesthesia, urinary or fecal incontinence, urinary retention, or LE radiculopathy. Otherwise, she notes mild tenderness to the region of the right parotid gland of the same duration.No fever/chills. The patient is followed by pain management in [place]. She was recently recommended to undergo MRI ofher lumbar spine. Medical History ALLERGIES: Allergies Allergen Reactions ??? Ativan [Lorazepam] Hyperactive Aggrevates restless leg syndrome ??? Cephalosporins Anaphylaxis ??? Rocephin [Ceftriaxone] Shortness of Breath ??? Levofloxacin Hives ??? Oxycodone Vomiting ??? Reglan [Metoclopramide] Hyperactive ??? Trazodone Other (see comment) Shaky, restlessness, itching, throat swelling MEDICATIONS: Prior to Admission medications Medication Sig Start Date End Date Taking? Authorizing Provider tiZANidine HCl (ZANAFLEX) 2 MG Cap Take 1 tablet by mouth 3 (three) times daily. 07/10/20 Yes Peter Schwartz MD traMADol (ULTRAM) 50 MG tablet Take 1 tablet (50 mg total) by mouth every 6 (six) hours as needed for Pain. Indications: Acute Pain < 7 Day Supply 07/10/20 07/13/20 Yes Peter Schwartz MD amitriptyline 25 MG tablet Take 25 [...] 20 mg by mouth daily. Doc Abstract ondansetron 4 MG disintegrating tablet Take 1 tablet (4 mg total) by mouth every 4 (four) hours as needed for Nausea. 06/25/20 Jaswinder Gaytan MD oxybutynin 5 MG tablet [...] Systems Constitutional: Positive for fatigue. Negative for chills and fever. HENT: Negative. Negative for congestion, postnasal drip, rhinorrhea and sore throat. Respiratory: Negative. Cardiovascular: Negative. Gastrointestinal: Negative. Genitourinary: Negative. Musculoskeletal: Positive for back pain and myalgias. Negative for arthralgias and neck pain. Skin: Negative. Neurological: Positive for weakness. Negative for dizziness, syncope, facial asymmetry, speech difficulty, light-headedness, numbness and headaches. All other systems reviewed and are negative. Physical Exam Filed Vitals: 07/10/20 0350 07/10/20 1140 07/10/20 1145 07/10/20 1245 BP: 111/73 124/68 124/68 109/61 Pulse: 83 82 Resp: 18 Temp: TempSrc: SpO2: 96% 96% 97% 94% Physical Exam Vitals signs and nursing note reviewed. Constitutional: Appearance: Normal appearance. She is well-developed. HENT: Head: Normocephalic and atraumatic. Nose: Nose normal. Mouth/Throat: Mouth: Mucous membranes are moist. Eyes: Conjunctiva/sclera: Conjunctivae normal. Pupils: Pupils are equal, round, and reactive to light. Neck: Musculoskeletal: Normal range of motion and neck supple. Vascular: No JVD. Trachea: No tracheal deviation. Cardiovascular: Rate and Rhythm: Normal rate and regular rhythm. Heart sounds: Normal heart sounds. Pulmonary: Effort: Pulmonary effort is normal. Breath sounds: Normal breath sounds. Abdominal: General: There is no distension. Palpations: Abdomen is soft. There is no mass. Tenderness: There is no abdominal tenderness. There is no guarding or rebound. Musculoskeletal: Normal range of motion. Lymphadenopathy: Cervical: No cervical adenopathy. Skin: General: Skin is warm and dry. Capillary Refill: Capillary refill takes less than 2 seconds. Neurological: General: No focal deficit present. Mental Status: She is alert and oriented to person, place, and time. Sensory: No sensory deficit. Motor: No weakness. Comments: Examination after pain control reveals 3/5 bilateral hip flexion, 4/5 ankle dorsiflexion/plantarflexion, and great toe extension. No sensory deficit. Diagnostic Studies / Procedures ELECTROCARDIOGRAMS: No results found for this visit on 07/09/20. LABORATORY STUDIES: Results for orders placed or performed during the hospital encounter of 07/09/20 CBC W/DIFF AUTOMATED Result Value Ref Range WBC 13.1 (H) 4.5 - 11.0 x10'3/uL RBC 4.86 4.20 - 5.40 x10'6/uL HGB 13.9 12.0 - 16.0 G/DL HCT 44.4 38.0 - 48.0 % MCV 91.4 80.0 - 94.0 FL MCH 28.6 27.0 - 31.0 PG MCHC 31.3 (L) 32.0 - 36.0 G/DL RDW 14.2 11.5 - 14.5 % PLT 346 130 - 400 x10'3/uL MPV 9.7 9.3 - 12.2 FL DIFFERENTIAL TYPE AUTOMATED DIFFERENTIAL NEUTROPHILS 64.9 % LYMPHOCYTES 25.2 % MONOCYTES 6.2 % EOSINOPHILS 2.7 % BASOPHILS 0.5 % IMMATURE GRANS 0.5 % ABS. NEUTROPHILS TOTAL 8.52 (H) 1.80 - 7.70 x10'3/uL ABS. LYMPHOCYTES 3.31 1.00 - 4.80 x10'3/uL ABS. MONOCYTES 0.82 0.24 - 0.86 x10'3/uL ABS. EOSINOPHILS 0.35 0.04 - 0.36 x10'3/uL ABS. BASOPHILS 0.06 0.01 - 0.08 x10'3/uL ABS. IMMATURE GRANULOCYTES 0.07 0.00 - 0.49 x10'3/uL COMPREHENSIVE METABOLIC PANEL Result Value Ref Range GLUCOSE 230 (H) 70 - 99 MG/DL BUN 23 (H) 7 - 18 MG/DL CREATININE S/P/B 1.01 0.55 - 1.02 MG/DL SODIUM 134 (L) 136 - 145 MMOL/L POTASSIUM 4.6 3.5 - 5.1 MMOL/L CHLORIDE S/P/B 103 100 - 108 MMOL/L CO2 28.1 21 - 32 MMOL/L CALCIUM 9.7 8.5 - 10.1 MG/DL BILIRUBIN TOTAL S/P/B 0.3 0.2 - 1.2 MG/DL TOTAL PROTEIN S/P/B 8.8 (H) 6.4 - 8.2 G/DL ALBUMIN S/P/B 3.5 3.4 - 5.0 G/DL AST 22 15 - 37 U/L ALT 32 14 - 55 U/L ALKALINE PHOSPHATASE S/P/B 96 50 - 136 U/L ANION GAP 2.9 (L) 5 - 15 MMOL/L BUN CREATININE RATIO 22.8 6 - 26 A/G RATIO 0.7 (L) 1.0 - 2.0 RATIO eGFR Non-Afr. Amer. 59 (L) >90 ML/MIN/1.73 M2 eGFR Afr. Amer. 68 (L) >90 ML/MIN/1.73 M2 MAGNESIUM Result Value Ref Range MAGNESIUM 1.9 1.8 - 2.4 MG/DL C-REACTIVE PROTEIN Result Value Ref Range C-REACTIVE PROTEIN 1.97 (H) <0.29 mg/dL CK (CPK) Result Value Ref Range CPK 157 21 - 215 U/L SED RATE, ERYTHROCYTE (ESR) Result Value Ref Range ESR 112 (H) <30 MM/HR URINALYSIS Result Value Ref Range Specimen Type URINE CLEAN CATCH COLOR (U) YELLOW TRANSPARENCY CLEAR Specific [place]me[place] (U) 1.028 1.001 - 1.030 U PH 5.0 5.0 - 9.0 LEUKOCYTE ESTERASE NEGATIVE NEGATIVE NITRITES NEGATIVE NEGATIVE PROTEIN (U) NEGATIVE <30 MG/DL URINE GLUCOSE 50 (A) NORMAL MG/DL U KETONES NEGATIVE NEGATIVE MG/DL UROBILINOGEN NORMAL NORMAL MG/DL BILIRUBIN (U) NEGATIVE NEGATIVE MG/DL BLOOD TRACE (A) NEGATIVE CULTURE & SENSITIVITY INDICATED? CULTURE IS NOT INDICATED MUCUS RARE /LPF WBC/HPF 3 <6 /HPF RBC/HPF <1 <6 /HPF SQUAMOUS EPITHELIALS RARE /HPF IMAGING STUDIES MRI LUMB SPINE WWO CON Final Result by User, [id number] (07/10 112) DATE: 07/10/2020 9:36 AM INDICATION: Low back pain. Leukocytosis. Elevated CRP. EXAMINATION: MRI lumbar spine without and with contrast. TECHNIQUE: Multiplanar and multisequence MRI images of the lumbar spine were obtained before and after uneventful intravenous administration of 20 mL Dotarem. COMPARISON: Correlation made with prior CT chest 03/14/[address] abdomen and pelvis 06/25/2020 FINDINGS: Review of prior CT images reveals hypoplastic T12 ribs with the designated L5 vertebral level demonstrating transitional, partially sacralized morphology. Using this numbering system, the conus medullaris terminates at the L1 level. There is grade 1 anterolisthesis of L4 on L5, probably related to degenerative facet arthropathy. Otherwise the lumbar vertebral alignment, vertebral body heights, and facet alignment are maintained. No definite abnormal signal or enhancement seen in the lumbar intervertebral discs or adjacent endplates to suggest discitis/osteomyelitis in the lumbar spine. No intraspinal or paraspinal collections identified. No definite abnormal enhancement seen along the distal thoracic cord, conus, or along the visualized cauda equina. Likely degenerative enhancement seen along the mid and lower lumbar facet articulations. Mild likely reactive/degenerative edema and enhancement along the L1-L2 endplates. There is low T1/T2 signal seen along the SI joints, with corresponding sclerosis seen on prior CT, and some ill-defined surrounding enhancement. Multilevel degenerative changes seen in the lower thoracic and lumbar levels with disc degeneration, endplate osteophytes, ligamentum flavum thickening, and facet hypertrophy evident. Multilevel disc desiccation. Right renal cyst. T10-T11: Disc bulge. Ligamentous/facet hypertrophy. Flattening of the thecal sac. No cord deformity. Foramina patent. T11-T12: Ligamentous/facet hypertrophy. Indentation of the dorsolateral thecal sac. No significant canal or foraminal narrowing. T12-L1: Mild facet hypertrophy. No canal or foraminal narrowing. L1-L2: Disc bulge. Superimposed small left central/subarticular herniation. Mildly mentum flavum thickening. Facet hypertrophy. Flattening of the ventral thecal sac with minimal canal stenosis. No significant foraminal narrowing. L2-L3: Disc bulge with extension into the foramina. Superimposed small central herniation. Ligamentum flavum thickening. Facet hypertrophy. Mild canal stenosis. No significant foraminal narrowing. L3-L4: Disc bulge with extension into the foramina. Possible small superimposed right foraminal protrusion. Ligamentum flavum thickening. Facet hypertrophy. Marginal endplate osteophytes. Mild canal stenosis. Mild right foraminal narrowing. L4-L5: Slight anterolisthesis and disc uncovering. Disc bulge with extension into the foramina. Superimposed left foraminal protrusion with enhancing annular fissure. Facet hypertrophy. Flattening of the ventral thecal sac. Minimal if any canal stenosis. Minimal left foraminal narrowing. L5-S1: No canal or foraminal narrowing. IMPRESSION: 1. No definite abnormal signal or enhancement seen in the lumbar discs or adjacent endplates to suggest discitis/osteomyelitis in the lumbar spine. No intraspinal or paraspinal collections. 2. Bilateral sacroiliitis with sclerotic marrow signal alterations and some surrounding enhancement. 3. Likely reactive/degenerative enhancement seen along the endplates in mid and lower lumbar facets. 4. Multilevel degenerative changes in the lumbar spine contributing to varying degrees of spinal canal and foraminal stenosis, as detailed. Referred By: THOMAS ALVARADO Interpreted By: Kevin Mac MD, 07/10/2020 11:14 AM ED Course / Medical Decision Making There is no scan from Dr. Alvarado and agree with the note and plan.. MDM Number of Diagnoses or Management Options Amount and/or Complexity of Data Reviewed Clinical lab tests: ordered and reviewed Tests in the radiology section of CPT??: ordered and reviewed Tests in the medicine section of CPT??: ordered and reviewed Risk of Complications, Morbidity, and/or Mortality Presenting problems: moderate Diagnostic procedures: moderate Management options: moderate Clinical Impression Bilateral sacroiliitis (CMS/HCC) (Primary) Disposition: Discharge Peter Schwartz MD 07/11/201925 * Alicia Caldera RN - 07/10/2020 8:47 AM CDT Patient up to restroom requiring stand-by assist. * Radha Deluna RN - 07/09/2020 11:40 PM CDT Pt reports chronic back pain and sees pain management. Pt reports unable to ambulate without assistance to dinner this evening. Pt denies loss of bowel or bladder. Radha Deluna RN * Thomas Alvarado MD - 07/09/2020 10:16 PM CDT Chief Complaint Chief Complaint Patient presents with ??? Back Pain ??? Generalized Body Aches History of Present Illness This patient is a 65yo WF with PMH HTN, DM, chronic low back pain who presents to the ED for evaluation of severe pain. She describes a two day history of severe, diffuse low back pain not controlledwith norco. In addition, she notes diffuse myalgias and malaise. The patient states that she is unable to ambulate, though it is unclear if this is due to pain or true weakness. She denies any recent falls. She denies saddle anesthesia, urinary or fecal incontinence, urinary retention, or LE radiculopathy. Otherwise, she notes mild tenderness to the region of the right parotid gland of the same duration.No fever/chills. The patient is followed by pain management in [place]. She was recently recommended to undergo MRI ofher lumbar spine. Medical History ALLERGIES: Allergies Allergen Reactions ??? Ativan [Lorazepam] Hyperactive Aggrevates restless leg syndrome ??? Cephalosporins Anaphylaxis ??? Rocephin [Ceftriaxone] Shortness of Breath ??? Levofloxacin Hives ??? Oxycodone Vomiting ??? Reglan [Metoclopramide] Hyperactive ??? Trazodone Other (see comment) Shaky, restlessness, itching, throat swelling MEDICATIONS: Prior to Admission medications Medication Sig Start Date End Date Taking? Authorizing Provider tiZANidine HCl (ZANAFLEX) 2 MG Cap Take 1 tablet by mouth 3 (three) times daily. 07/10/20 Yes Peter Schwartz MD traMADol (ULTRAM) 50 MG tablet Take 1 tablet (50 mg total) by mouth every 6 (six) hours as needed for Pain. Indications: Acute Pain < 7 Day Supply 07/10/20 07/13/20 Yes Peter Schwartz MD amitriptyline 25 MG tablet Take 25 [...] 20 mg by mouth daily. Doc Abstract ondansetron 4 MG disintegrating tablet Take 1 tablet (4 mg total) by mouth every 4 (four) hours as needed for Nausea. 06/25/20 Jaswinder Gaytan MD oxybutynin 5 MG tablet [...] Systems Constitutional: Positive for fatigue. Negative for chills and fever. HENT: Negative. Negative for congestion, postnasal drip, rhinorrhea and sore throat. Respiratory: Negative. Cardiovascular: Negative. Gastrointestinal: Negative. Genitourinary: Negative. Musculoskeletal: Positive for back pain and myalgias. Negative for arthralgias and neck pain. Skin: Negative. Neurological: Positive for weakness. Negative for dizziness, syncope, facial asymmetry, speech difficulty, light-headedness, numbness and headaches. All other systems reviewed and are negative. Physical Exam Filed Vitals: 07/10/20 0350 07/10/20 1140 07/10/20 1145 07/10/20 1245 BP: 111/73 124/68 124/68 109/61 Pulse: 83 82 Resp: 18 Temp: TempSrc: SpO2: 96% 96% 97% 94% Physical Exam Vitals signs and nursing note reviewed. Constitutional: Appearance: Normal appearance. She is well-developed. HENT: Head: Normocephalic and atraumatic. Nose: Nose normal. Mouth/Throat: Mouth: Mucous membranes are moist. Eyes: Conjunctiva/sclera: Conjunctivae normal. Pupils: Pupils are equal, round, and reactive to light. Neck: Musculoskeletal: Normal range of motion and neck supple. Vascular: No JVD. Trachea: No tracheal deviation. Cardiovascular: Rate and Rhythm: Normal rate and regular rhythm. Heart sounds: Normal heart sounds. Pulmonary: Effort: Pulmonary effort is normal. Breath sounds: Normal breath sounds. Abdominal: General: There is no distension. Palpations: Abdomen is soft. There is no mass. Tenderness: There is no abdominal tenderness. There is no guarding or rebound. Musculoskeletal: Normal range of motion. Lymphadenopathy: Cervical: No cervical adenopathy. Skin: General: Skin is warm and dry. Capillary Refill: Capillary refill takes less than 2 seconds. Neurological: General: No focal deficit present. Mental Status: She is alert and oriented to person, place, and time. Sensory: No sensory deficit. Motor: No weakness. Comments: Examination after pain control reveals 3/5 bilateral hip flexion, 4/5 ankle dorsiflexion/plantarflexion, and great toe extension. No sensory deficit. Diagnostic Studies / Procedures ELECTROCARDIOGRAMS: No results found for this visit on 07/09/20. LABORATORY STUDIES: Results for orders placed or performed during the hospital encounter of 07/09/20 CBC W/DIFF AUTOMATED Result Value Ref Range WBC 13.1 (H) 4.5 - 11.0 x10'3/uL RBC 4.86 4.20 - 5.40 x10'6/uL HGB 13.9 12.0 - 16.0 G/DL HCT 44.4 38.0 - 48.0 % MCV 91.4 80.0 - 94.0 FL MCH 28.6 27.0 - 31.0 PG MCHC 31.3 (L) 32.0 - 36.0 G/DL RDW 14.2 11.5 - 14.5 % PLT 346 130 - 400 x10'3/uL MPV 9.7 9.3 - 12.2 FL DIFFERENTIAL TYPE AUTOMATED DIFFERENTIAL NEUTROPHILS 64.9 % LYMPHOCYTES 25.2 % MONOCYTES 6.2 % EOSINOPHILS 2.7 % BASOPHILS 0.5 % IMMATURE GRANS 0.5 % ABS. NEUTROPHILS TOTAL 8.52 (H) 1.80 - 7.70 x10'3/uL ABS. LYMPHOCYTES 3.31 1.00 - 4.80 x10'3/uL ABS. MONOCYTES 0.82 0.24 - 0.86 x10'3/uL ABS. EOSINOPHILS 0.35 0.04 - 0.36 x10'3/uL ABS. BASOPHILS 0.06 0.01 - 0.08 x10'3/uL ABS. IMMATURE GRANULOCYTES 0.07 0.00 - 0.49 x10'3/uL COMPREHENSIVE METABOLIC PANEL Result Value Ref Range GLUCOSE 230 (H) 70 - 99 MG/DL BUN 23 (H) 7 - 18 MG/DL CREATININE S/P/B 1.01 0.55 - 1.02 MG/DL SODIUM 134 (L) 136 - 145 MMOL/L POTASSIUM 4.6 3.5 - 5.1 MMOL/L CHLORIDE S/P/B 103 100 - 108 MMOL/L CO2 28.1 21 - 32 MMOL/L CALCIUM 9.7 8.5 - 10.1 MG/DL BILIRUBIN TOTAL S/P/B 0.3 0.2 - 1.2 MG/DL TOTAL PROTEIN S/P/B 8.8 (H) 6.4 - 8.2 G/DL ALBUMIN S/P/B 3.5 3.4 - 5.0 G/DL AST 22 15 - 37 U/L ALT 32 14 - 55 U/L ALKALINE PHOSPHATASE S/P/B 96 50 - 136 U/L ANION GAP 2.9 (L) 5 - 15 MMOL/L BUN CREATININE RATIO 22.8 6 - 26 A/G RATIO 0.7 (L) 1.0 - 2.0 RATIO eGFR Non-Afr. Amer. 59 (L) >90 ML/MIN/1.73 M2 eGFR Afr. Amer. 68 (L) >90 ML/MIN/1.73 M2 MAGNESIUM Result Value Ref Range MAGNESIUM 1.9 1.8 - 2.4 MG/DL C-REACTIVE PROTEIN Result Value Ref Range C-REACTIVE PROTEIN 1.97 (H) <0.29 mg/dL CK (CPK) Result Value Ref Range CPK 157 21 - 215 U/L SED RATE, ERYTHROCYTE (ESR) Result Value Ref Range ESR 112 (H) <30 MM/HR URINALYSIS Result Value Ref Range Specimen Type URINE CLEAN CATCH COLOR (U) YELLOW TRANSPARENCY CLEAR Specific Kemmerer (U) 1.028 1.001 - 1.030 U PH 5.0 5.0 - 9.0 LEUKOCYTE ESTERASE NEGATIVE NEGATIVE NITRITES NEGATIVE NEGATIVE PROTEIN (U) NEGATIVE <30 MG/DL URINE GLUCOSE 50 (A) NORMAL MG/DL U KETONES NEGATIVE NEGATIVE MG/DL UROBILINOGEN NORMAL NORMAL MG/DL BILIRUBIN (U) NEGATIVE NEGATIVE MG/DL BLOOD TRACE (A) NEGATIVE CULTURE & SENSITIVITY INDICATED? CULTURE IS NOT INDICATED MUCUS RARE /LPF WBC/HPF 3 <6 /HPF RBC/HPF <1 <6 /HPF SQUAMOUS EPITHELIALS RARE /HPF IMAGING STUDIES MRI LUMB SPINE WWO CON Final Result by User, [id number] (07/10 1123) DATE: 07/10/2020 9:36 AM INDICATION: Low back pain. Leukocytosis. Elevated CRP. EXAMINATION: MRI lumbar spine without and with contrast. TECHNIQUE: Multiplanar and multisequence MRI images of the lumbar spine were obtained before and after uneventful intravenous administration of 20 mL Dotarem. COMPARISON: Correlation made with prior CT chest 03/14/[address] abdomen and pelvis 06/25/2020 FINDINGS: Review of prior CT images reveals hypoplastic T12 ribs with the designated L5 vertebral level demonstrating transitional, partially sacralized morphology. Using this numbering system, the conus medullaris terminates at the L1 level. There is grade 1 anterolisthesis of L4 on L5, probably related to degenerative facet arthropathy. Otherwise the lumbar vertebral alignment, vertebral body heights, and facet alignment are maintained. No definite abnormal signal or enhancement seen in the lumbar intervertebral discs or adjacent endplates to suggest discitis/osteomyelitis in the lumbar spine. No intraspinal or paraspinal collections identified. No definite abnormal enhancement seen along the distal thoracic cord, conus, or along the visualized cauda equina. Likely degenerative enhancement seen along the mid and lower lumbar facet articulations. Mild likely reactive/degenerative edema and enhancement along the L1-L2 endplates. There is low T1/T2 signal seen along the SI joints, with corresponding sclerosis seen on prior CT, and some ill-defined surrounding enhancement. Multilevel degenerative changes seen in the lower thoracic and lumbar levels with disc degeneration, endplate osteophytes, ligamentum flavum thickening, and facet hypertrophy evident. Multilevel disc desiccation. Right renal cyst. T10-T11: Disc bulge. Ligamentous/facet hypertrophy. Flattening of the thecal sac. No cord deformity. Foramina patent. T11-T12: Ligamentous/facet hypertrophy. Indentation of the dorsolateral thecal sac. No significant canal or foraminal narrowing. T12-L1: Mild facet hypertrophy. No canal or foraminal narrowing. L1-L2: Disc bulge. Superimposed small left central/subarticular herniation. Mildly mentum flavum thickening. Facet hypertrophy. Flattening of the ventral thecal sac with minimal canal stenosis. No significant foraminal narrowing. L2-L3: Disc bulge with extension into the foramina. Superimposed small central herniation. Ligamentum flavum thickening. Facet hypertrophy. Mild canal stenosis. No significant foraminal narrowing. L3-L4: Disc bulge with extension into the foramina. Possible small superimposed right foraminal protrusion. Ligamentum flavum thickening. Facet hypertrophy. Marginal endplate osteophytes. Mild canal stenosis. Mild right foraminal narrowing. L4-L5: Slight anterolisthesis and disc uncovering. Disc bulge with extension into the foramina. Superimposed left foraminal protrusion with enhancing annular fissure. Facet hypertrophy. Flattening of the ventral thecal sac. Minimal if any canal stenosis. Minimal left foraminal narrowing. L5-S1: No canal or foraminal narrowing. IMPRESSION: 1. No definite abnormal signal or enhancement seen in the lumbar discs or adjacent endplates to suggest discitis/osteomyelitis in the lumbar spine. No intraspinal or paraspinal collections. 2. Bilateral sacroiliitis with sclerotic marrow signal alterations and some surrounding enhancement. 3. Likely reactive/degenerative enhancement seen along the endplates in mid and lower lumbar facets. 4. Multilevel degenerative changes in the lumbar spine contributing to varying degrees of spinal canal and foraminal stenosis, as detailed. Referred By: THOMAS ALVARADO Interpreted By: Kevin Mac MD, 07/10/2020 11:14 AM ED Course / Medical Decision Making The patient has no signs/symptoms of cauda equina at present. PVR 11 mL. She does have significant LE weakness, though it is unclear how much is attributable to pain. Ultimately, I suspect PMR and have given her a dose of steroids. As a measure of precaution, we will obtain an MRI to r/o lumbar spine pathology. Signed out to Dr. Schwartz at 0700. 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 States pain began 2 days ago. Also reports tender spot on right jaw. documented in this encounter Plan of Treatment Not on file documented as of this encounter Procedures Procedure Name Priority Date/Time Associated Diagnosis Comments MRI LUMB SPINE WWO CON STAT 10:44 AM CDT HC URINALYSIS AUTO W/O MICRO STAT 07/09/2020 11:27 PM CDT SED RATE, ERYTHROCYTE (ESR) STAT 07/09/2020 10:24 PM CDT COMPREHENSIVE METABOLIC PANEL STAT 07/09/2020 10:24 PM CDT C-REACTIVE PROTEIN STAT 07/09/2020 10 :24 PM CDT CBC W/DIFF AUTOMATED STAT 07/09/2020 10:24 PM CDT MAGNESIUM STAT 07/09/2020 10:24 PM CDT CK (CPK) STAT 07/09/2020 10:24 PM CDT documented in this encounter Results * MRI LUMB SPINE WWO CON (07/10/2020 10:44 AM CDT) Anatomical Region Laterality Modality Spine Magnetic Resonan ce 07/10/2020 11:1 4 AM CDT Impressions 07/10/2020 11:22 AM CDT IMPRESSION: 1. No definite abnormal signal or enhancement seen in the lumbar discs or adjacent endplates to suggest discitis/osteomyelitis in the lumbar spine. No intraspinal or paraspinal collections. 2. Bilateral sacroiliitis with sclerotic marrow signal alterations and some surrounding enhancement. 3. Likely reactive/degenerative enhancement seen along the endplates in mid and lower lumbar facets. 4. Multilevel degenerative changes in the lumbar spine contributing to varying degrees of spinal canal and foraminal stenosis, as detailed. Referred By: THOMAS ALVARADO Interpreted By: Kevin Mac MD, 07/10/2020 11:14 AM Narrative 07/10/2020 11:22 AM CDT DATE: 07/10/2020 9:36 AM INDICATION: Low back pain. Leukocytosis. Elevated CRP. EXAMINATION: MRI lumbar spine without and with contrast. TECHNIQUE: Multiplanar and multisequence MRI images of the lumbar spine were obtained before and after uneventful intravenous administration of 20 mL Dotarem. COMPARISON: Correlation made with prior CT chest 03/14/[address] abdomen and pelvis 06/25/2020 FINDINGS: Review of prior CT images reveals hypoplastic T12 ribs with the designated L5 vertebral level demonstrating transitional, partially sacralized morphology. Using this numbering system, the conus medullaris terminates at the L1 level. There is grade 1 anterolisthesis of L4 on L5, probably related to degenerative facet arthropathy. Otherwise the lumbar vertebral alignment, vertebral body heights, and facet alignment are maintained. No definite abnormal signal or enhancement seen in the lumbar intervertebral discs or adjacent endplates to suggest discitis/osteomyelitis in the lumbar spine. No intraspinal or paraspinal collections identified. No definite abnormal enhancement seen along the distal thoracic cord, conus, or along the visualized cauda equina. Likely degenerative enhancement seen along the mid and lower lumbar facet articulations. Mild likely reactive/degenerative edema and enhancement along the L1-L2 endplates. There is low T1/T2 signal seen along the SI joints, with corresponding sclerosis seen on prior CT, and some ill-defined surrounding enhancement. Multilevel degenerative changes seen in the lower thoracic and lumbar levels with disc degeneration, endplate osteophytes, ligamentum flavum thickening, and facet hypertrophy evident. Multilevel disc desiccation. Right renal cyst. T10-T11: Disc bulge. Ligamentous/facet hypertrophy. Flattening of the thecal sac. No cord deformity. Foramina patent. T11-T12: Ligamentous/facet hypertrophy. Indentation of the dorsolateral thecal sac. No significant canal or foraminal narrowing. T12-L1: Mild facet hypertrophy. No canal or foraminal narrowing. L1-L2: Disc bulge. Superimposed small left central/subarticular herniation. Mildly mentum flavum thickening. Facet hypertrophy. Flattening of the ventral thecal sac with minimal canal stenosis. No significant foraminal narrowing. L2-L3: Disc bulge with extension into the foramina. Superimposed small central herniation. Ligamentum flavum thickening. Facet hypertrophy. Mild canal stenosis. No significant foraminal narrowing. L3-L4: Disc bulge with extension into the foramina. Possible small superimposed right foraminal protrusion. Ligamentum flavum thickening. Facet hypertrophy. Marginal endplate osteophytes. Mild canal stenosis. Mild right foraminal narrowing. L4-L5: Slight anterolisthesis and disc uncovering. Disc bulge with extension into the foramina. Superimposed left foraminal protrusion with enhancing annular fissure. Facet hypertrophy. Flattening of the ventral thecal sac. Minimal if any canal stenosis. Minimal left foraminal narrowing. L5-S1: No canal or foraminal narrowing. Procedure Note Kevin Mac MD - 07/10/2020 DATE: 07/10/2020 9:36 AM INDICATION: Low back pain. Leukocytosis. Elevated CRP. EXAMINATION: MRI lumbar spine without and with contrast. TECHNIQUE: Multiplanar and multisequence MRI images of the lumbar spine wereobtained before and after uneventful intravenous administration of 20 mL Dotarem. COMPARISON: Correlation made with prior CT chest 03/14/2019 and CTabdomen and pelvis 06/25/2020 FINDINGS: Review of prior CT images reveals hypoplastic T12 ribs with thedesignated L5 vertebral level demonstrating transitional, partially sacralized morphology. Using this numbering system, the conus medullaris terminatesat the L1 level. There is grade 1 anterolisthesis of L4 on L5, probably related to degenerative facet arthropathy. Otherwise the lumbar vertebralalignment, vertebral body heights, and facet alignment are maintained. No definite abnormal signal or enhancement seen in the lumbar intervertebral discsor adjacent endplates to suggest discitis/osteomyelitis in the lumbar spine. No intraspinal or paraspinal collections identified. No definiteabnormal enhancement seen along the distal thoracic cord, conus, or along the visualized cauda equina. Likely degenerative enhancement seen along themid and lower lumbar facet articulations. Mild likely reactive/degenerative edema and enhancement along the L1-L2 endplates. There is low T1/S9cbozzl seen along the SI joints, with corresponding sclerosis seen on prior CT, and some ill-defined surrounding enhancement. Multilevel degenerative changes seen in the lower thoracic and lumbar levels with disc degeneration, endplate osteophytes, ligamentum flavum thickening, and facet hypertrophy evident. Multilevel disc desiccation. Right renal cyst. T10-T11: Disc bulge. Ligamentous/facet hypertrophy. Flattening of the thecal sac. No cord deformity. Foramina patent. T11-T12: Ligamentous/facet hypertrophy. Indentation of the dorsolateral thecal sac. No significant canal or foraminal narrowing. T12-L1: Mild facet hypertrophy. No canal or foraminal narrowing. L1-L2: Disc bulge. Superimposed small left central/subarticularherniation. Mildly mentum flavum thickening. Facet hypertrophy. Flattening of the ventral thecal sac with minimal canal stenosis. No significant foraminal narrowing. L2-L3: Disc bulge with extension into the foramina. Superimposed small central herniation. Ligamentum flavum thickening. Facet hypertrophy.Mild canal stenosis. No significant foraminal narrowing. L3-L4: Disc bulge with extension into the foramina. Possible small superimposed right foraminal protrusion. Ligamentum flavum thickening. Facet hypertrophy. Marginal endplate osteophytes. Mild canal stenosis.Mild right foraminal narrowing. L4-L5: Slight anterolisthesis and disc uncovering. Disc bulge with extension into the foramina. Superimposed left foraminal protrusion with enhancing annular fissure. Facet hypertrophy. Flattening of the ventral thecal sac. Minimal if any canal stenosis. Minimal left foraminal narrowing. L5-S1: No canal or foraminal narrowing. IMPRESSION: 1. No definite abnormal signal or enhancement seen in the lumbar discsor adjacent endplates to suggest discitis/osteomyelitis in the lumbarspine. No intraspinal or paraspinal collections. 2. Bilateral sacroiliitis with sclerotic marrow signal alterations andsome surrounding enhancement. 3. Likely reactive/degenerative enhancement seen along the endplates inmid and lower lumbar facets. 4. Multilevel degenerative changes in the lumbar spine contributing to varying degrees of spinal canal and foraminal stenosis, as detailed. Referred By: THOMAS ALVARADO Interpreted By: Kevin Mac MD, 07/10/2020 11:14 AM us Thomas Alvarado MD MRI Final Re sult * (ABNORMAL) URINALYSIS (07/09/2020 11:27 PM CDT) SPECIMEN TYPE URINE CLEAN CATCH 07/09/2020 11:27 PM CDT [facility] COLOR (U) YELLOW 07/09/2020 11:48 PM CDT [facility] TRANSPARENCY CLEAR 07/09/2020 11:48 PM CDT [facility] SPECIFIC GRAVITY (U) 1.028 1.001 - 1.030 07/09/2020 11:48 PM CDT [facility] U PH 5.0 5.0 - 9.0 07/09/2020 11:48 PM CDT [facility] LEUKOCYTES (U) NEGATIVE NEGATIVE 07/09/2020 11:48 PM CDT [facility] NITRITES NEGATIVE NEGATIVE 07/09/2020 11:48 PM CDT [facility] PROTEIN (U) NEGATIVE <30 MG/DL 07/09/2020 11:48 PM CDT [facility] URINE GLUCOSE 50(A) NORMAL MG/DL 07/09/2020 11:48 PM CDT [facility] KETONES MG/DL (U) NEGATIVE NEGATIVE MG/DL 07/09/2020 11:48 PM CDT [facility] UROBILINOGEN NORMAL NORMAL MG/DL 07/09/2020 11:48 PM CDT [facility] BILIRUBIN (U) NEGATIVE NEGATIVE MG/DL 07/09/2020 11:48 PM CDT [facility] BLOOD (U) TRACE(A) NEGATIVE 07/09/2020 11:48 PM CDT [facility] CULTURE & SENSITIVITY INDICATED? CULTURE IS NOT INDICATED 07/09/2020 11:48 PM CDT [facility] MUCUS RARE /LPF 07/09/2020 11:48 PM CDT [facility] WBC/HPF 3 <6 /HPF 07/09/2020 11:48 PM CDT [facility] RBC/HPF <1 <6 /HPF 07/09/2020 11:48 PM CDT [facility] SQUAMOUS EPITHELIALS RARE /HPF 07/09/2020 11:48 PM CDT [facility] URINE SPECIMEN OBTAINED BY CLEAN CATCH PROCEDURE / Unknown 07/09/2020 11:27 PM CDT Thomas Alvarado MD URINE ORDERABLES Final R esult Performing Organization Address City/[facility]/ZIP Co de Phone Number [facility] [address] [place] [id number], [place] [phone] * (ABNORMAL) SED RATE, ERYTHROCYTE (ESR) (07/09/2020 10:24 PM CDT) ESR 112(H) <30 MM/HR 07/10/2020 2:09 AM CDT [facility] Comment:Testing performed on [employer] iSED. 07/09/2020 10:2 4 PM CDT Thomas Alvarado MD LABORATORY Final Re sult [facility] [address] [place] [address], [place] [phone] * CK (CPK) (07/09/2020 10:24 PM CDT) CPK 157 21 - 215 U/L 07/09/2020 11:13 PM CDT [facility] 07/09/2020 10:2 4 PM CDT Thomas Alvarado MD LABORATORY Final Re sult [facility] [address] [place] [address], [place] [phone] * (ABNORMAL) C-REACTIVE PROTEIN (07/09/2020 10:24 PM CDT) C-REACTIVE PROTEIN 1.97(H) <0.29 mg/dL 07/09/2020 11:13 PM CDT [facility] 07/09/2020 10:2 4 PM CDT Thomas Alvarado MD LABORATORY Final Re sult Performing Organization Address City/[facility]/ZIP Co de Phone Number [facility] [address] [place] [address], [place] [phone] * MAGNESIUM (07/09/2020 10:24 PM CDT) MAGNESIUM 1.9 1.8 - 2.4 MG/DL 07/09/2020 11:13 PM CDT [facility] 07/09/2020 10:2 4 PM CDT Thomas Alvarado MD LABORATORY Final Re sult [facility] [address] [place] [address], [place] [phone] * (ABNORMAL) COMPREHENSIVE METABOLIC PANEL (07/09/2020 10:24 PM CDT) GLUCOSE 230(H) 70 - 99 MG/DL 07/09/2020 11:13 PM CDT [facility] BUN 23(H) 7 - 18 MG/DL 07/09/2020 11:13 PM CDT [facility] CREATININE S/P/B 1.01 0.55 - 1.02 MG/DL 07/09/2020 11:13 PM CDT [facility] SODIUM S/P/B 134(L) 136 - 145 MMOL/L 07/09/2020 11:13 PM CDT [facility] POTASSIUM S/P/B 4.6 3.5 - 5.1 MMOL/L 07/09/2020 11:13 PM CDT [facility] CHLORIDE S/P/B 103 100 - 108 MMOL/L 07/09/2020 11:13 PM CDT [facility] CO2 28.1 21 - 32 MMOL/L 07/09/2020 11:13 PM CDT [facility] CALCIUM S/P/B 9.7 8.5 - 10.1 MG/DL 07/09/2020 11:13 PM CDT [facility] BILIRUBIN TOTAL S/P/B 0.3 0.2 - 1.2 MG/DL 07/09/2020 11:13 PM CDT [facility] Comment: THIS ASSAY IS NOT RECOMMENDED FOR PATIENTS UNDERGOING TREATMENT WITH ELTROMBOPAG DUE TO THE POTENTIAL FOR FALSELY ELEVATED RESULTS. TOTAL PROTEIN S/P/B 8.8(H) 6.4 - 8.2 G/DL 07/09/2020 11:13 PM CDT [facility] ALBUMIN S/P/B 3.5 3.4 - 5.0 G/DL 07/09/2020 11:13 PM CDT [facility] AST 22 15 - 37 U/L 07/09/2020 11:13 PM CDT [facility] ALT 32 14 - 55 U/L 07/09/2020 11:13 PM CDT [facility] ALKALINE PHOSPHATASE S/P/B 96 50 - 136 U/L 07/09/2020 11:13 PM CDT [facility] ANION GAP 2.9(L) 5 - 15 MMOL/L 07/09/2020 11:13 PM CDT [facility] BUN CREATININE RATIO 22.8 6 - 26 07/09/2020 11:13 PM CDT [facility] A/G RATIO 0.7(L) 1.0 - 2.0 RATIO 07/09/2020 11:13 PM CDT [facility] EGFR NON-AFR. AMER. 59(L) >90 ML/MIN/1.7 3 M2 07/09/2020 11:13 PM CDT [facility] EGFR AFR. AMER. 68(L) >90 ML/MIN/1.7 3 M2 07/09/2020 11:13 PM CDT [facility] Comment: NOTE: eGFR is not calculated for patients <18 years of age. This is an estimated GFR (CKD EPI) and should not be used for calculating drug doses. 07/09/2020 10:2 4 PM CDT Thomas Alvarado MD LABORATORY Final Re sult [facility] [address] [place] [address], * (ABNORMAL) CBC W/DIFF AUTOMATED (07/09/2020 10:24 PM CDT) WBC 13.1(H) 4.5 - 11.0 x10'3/uL 07/09/2020 10:42 PM CDT [facility] RBC 4.86 4.20 - 5.40 x10'6/uL 07/09/2020 10:42 PM CDT [facility] HGB 13.9 12.0 - 16.0 G/DL 07/09/2020 10:42 PM CDT [facility] HCT 44.4 38.0 - 48.0 % 07/09/2020 10:42 PM CDT [facility] MCV 91.4 80.0 - 94.0 FL 07/09/2020 10:42 PM CDT [facility] MCH 28.6 27.0 - 31.0 PG 07/09/2020 10:42 PM CDT [facility] MCHC 31.3(L) 32.0 - 36.0 G/DL 07/09/2020 10:42 PM CDT [facility] RDW 14.2 11.5 - 14.5 % 07/09/2020 10:42 PM CDT [facility] PLT 346 130 - 400 x10'3/uL 07/09/2020 10:42 PM CDT [facility] MPV 9.7 9.3 - 12.2 FL 07/09/2020 10:42 PM CDT [facility] DIFFERENTIAL TYPE AUTOMATED DIFFERENTIAL 07/09/2020 10:42 PM CDT [facility] NEUTROPHILS % 64.9 % 07/09/2020 10:42 PM CDT [facility] LYMPHOCYTES % 25.2 % 07/09/2020 10:42 PM CDT [facility] MONOCYTES % 6.2 % 07/09/2020 10:42 PM CDT [facility] EOSINOPHILS 2.7 % 07/09/2020 10:42 PM CDT [facility] BASOPHILS 0.5 % 07/09/2020 10:42 PM CDT [facility] IMMATURE GRANS % 0.5 % 07/10/19 10:42 PM CDT [facility] ABS. NEUTROPHILS TOTAL 8.52(H) 1.80 - 7.70 x10'3/uL 07/09/2020 10:42 PM CDT [facility] ABS. LYMPHOCYTES 3.31 1.00 - 4.80 x10'3/uL 07/09/2020 10:42 PM CDT [facility] ABS. MONOCYTES 0.82 0.24 - 0.86 x10'3/uL 07/09/2020 10:42 PM CDT [facility] ABS. EOSINOPHILS 0.35 0.04 - 0.36 x10'3/uL 07/09/2020 10:42 PM CDT [facility] ABS. BASOPHILS 0.06 0.01 - 0.08 x10'3/uL 07/09/2020 10:42 PM CDT [facility] ABS. IMMATURE GRANULOCYTES 0.07 0.00 - 0.49 x10'3/uL 07/09/2020 10:42 PM CDT [facility] 07/09/2020 10:2 4 PM CDT Thomas Alvarado MD LABORATORY Final Re sult [facility] [address] [place] [address], documented in this encounter Visit Diagnoses Diagnosis Bilateral sacroiliitis (CMS/HCC)- Primary documented in this encounter Administered Medications Inactive Administered Medications - up to 3 most recent administrations Medication Order MAR Action Action Date Dose Rate Site gadoterate meglumine (DOTAREM) 10 MMOL/20ML injection 20 mL 20 mL, Intravenous, IMG once as needed, Contrast, 1 dose, Starting on Mon07/10/20 at 1023, Until Mon07/10/20 at 1023 Given 07/10/2020 10:23 AM CDT 20 mLs Righ t Arm HYDROmorphone (DILAUDID) injection 1 mg 1 mg, Intravenous, Once, 1 dose, On Valeri 07/09/20 at 2230, Administer slowly over at least 2-3 minutes. Given 07/09/2020 10:37 PM CDT 1 mg HYDROmorphone (DILAUDID) injection 1 mg 1 mg, Intravenous, Once, 1 dose, On Mon07/10/20 at 0345, Administer slowly over at least 2-3 minutes. Given 07/10/2020 3:49 AM CDT 1 mg HYDROmorphone (DILAUDID) injection 1 mg 1 mg, Intravenous, Once, 1 dose, On Mon07/10/20 at 1130, Administer slowly over at least 2-3 minutes. Given 07/10/2020 11:41 AM CDT 1 mg methylPREDNISolone sodium succinate (SOLU-Medrol) injection 125 mg 125 mg, Intravenous, Once, 1 dose, On Mon07/10/20 at 0000, If ordered IV, administer into a vein over 3-15 minutes. Doses >= 2 mg/kg or 250mg should be given by infusion, unless the benefits of IV injection outweigh the risks (life-threatening shock) Given 07/10/2020 12:25 AM CDT 125 mg ondansetron (ZOFRAN) injection 4 mg 4 mg, Intravenous, Once, 1 dose, On Valeri 07/09/20 at 2230, IV push over 2-5 minutes. Given 07/09/2020 10:37 PM CDT 4 mg ondansetron (ZOFRAN) injection 4 mg 4 mg, Intravenous, Once, 1 dose, On Mon07/10/20 at 1145, IV push over 2-5 minutes. Given 07/10/2020 11:52 AM CDT 4 mg documented in this encounter Active and Recently Administered Medications Times are shown in CDT. Scheduled Medication Order 07/08/2020 07/09/2020 07/10/2020 HYDROmorphone (DILAUDID) injection 1 mg (COMPLETED) 1 mg, Intravenous, Once, 1 dose, On Valeri 07/09/20 at 2230, Administer slowly over at least 2-3 minutes. 223 (Given - Provider: Radha Deluna RN) HYDROmorphone (DILAUDID) injection 1 mg (COMPLETED) 1 mg, Intravenous, Once, 1 dose, On Mon07/10/20 at 0345, Administer slowly over at least 2-3 minutes. 0349 (Given - Provid er: Radha Deluna RN) HYDROmorphone (DILAUDID) injection 1 mg (COMPLETED) 1 mg, Intravenous, Once, 1 dose, On Mon07/10/20 at 1130, Administer slowly over at least 2-3 minutes. 1141 (Given - Provid er: Alicia Caldera RN) methylPREDNISolone sodium succinate (SOLU-Medrol) injection 125 mg (COMPLETED) 125 mg, Intravenous, Once, 1 dose, On Mon07/10/20 at 0000, If ordered IV, administer into a vein over 3-15 minutes. Doses >= 2 mg/kg or 250mg should be given by infusion, unless the benefits of IV injection outweigh the risks (life-threatening shock) 0025 (Given - Provid er: Radha Deluna RN) ondansetron (ZOFRAN) injection 4 mg (COMPLETED) 4 mg, Intravenous, Once, 1 dose, On Valeri 07/09/20 at 2230, IV push over 2-5 minutes. 2237 (Given - Provider: Radha Deluna RN) ondansetron (ZOFRAN) injection 4 mg (COMPLETED) 4 mg, Intravenous, Once, 1 dose, On Mon07/10/20 at 1145, IV push over 2-5 minutes. 1152 (Given - Provid er: Alicia Caldera RN) PRN Medication Order 07/08/2020 07/09/2020 07/10/2020 gadoterate meglumine (DOTAREM) 10 MMOL/20ML injection 20 mL (COMPLETED) 20 mL, Intravenous, IMG once as needed, Contrast, 1 dose, Starting on Mon07/10/20 at 1023, Until Mon07/10/20 at 1023 1023 (Given - Provid er: Summer Tom RTR) documented in this encounter Care Teams Administrative Associate Relationship Specialty Start Date End Date Justen Gale MD [id number] [place] [address] PCP - General FAMILY PRACTICE 08/20/17 Meena Bansal MD [facility]. [address] [id number] [place] Slice [employer] Operator CARDIOVASCULAR DISEASE 04/24/16 documented as of this encounter
--- OUTSIDE RECORDS SUMMARY | 2024-04-26 02:41 | XMS_ITS | Encounter Summary ---
Author Organization [facility] Address [address] [place] [address]. [place] [address] [place] [address] Care Team Providers Care Edi Architect Name Role Phone Meena Bansal MD Unavailable [phone] Justen Gale MD Primary Care Provider [phone] Reason for Referral * Imaging (Emergency) - Closed Specialty Diagnoses / Procedures Referred By Elyssa t Referred To Contact RADIOLOGY Procedures CT ABD+PEL W IV CON ONLY Jaswinder Gaytan MD [address] [place] [address] Phone: tel: fax: Referral ID Status Reason Start Date Expiration Date Visits Re quested Visits Authorized [id number] Closed 06/25/2020 07/26/2021 1 1 ICAL LABORATORY DIRECTOR Reason for Visit * Reason Comments Shortness Of Breath Encounter Details Date Type Department Care Team (Late st Contact Info) Description 06/25/2020 3:31 PM CLINICAL LABORATORY DIRECTOR - 06/25/2020 11:20 PM CLINICAL LABORATORY DIRECTOR Emergency [facility] Emergency Room [place], [place] [id number] Jaswinder Gaytan MD [address] [place], [place] [id number] Shortness Of Breath Discharge Disposition: Home or [...] Sexual Orientation Straight 03/18/2018 3: 01 AM CLINICAL LABORATORY DIRECTOR COVID-19 Exposure Response Date Recorded In the last month, have you been in contact with someone who was confirmed or suspected to have Coronavirus / COVID-19? No / Unsure 06/25/2020 3:18 PM CLINICAL LABORATORY DIRECTOR documented as of this encounter Last Filed Vital Signs Vital Sign Reading Time Taken Comments Blood Pressure 137/82 06/25/2020 9:30 PM CLINICAL LABORATORY DIRECTOR Pulse 84 06/25/2020 9:45 PM CLINICAL LABORATORY DIRECTOR Temperature 36.9 ??C (98.4 ??F) 06/25/2020 3:25 PM CS T Respiratory Rate 23 06/25/2020 9:45 PM CLINICAL LABORATORY DIRECTOR Oxygen Saturation 96% 06/25/2020 9:45 PM CLINICAL LABORATORY DIRECTOR Inhaled Oxygen Concentration - - Weight 136.3 kg (300 lb 7.8 oz) 06/25/2020 3:25 PM CLINICAL LABORATORY DIRECTOR Height 154.9 cm (5' 1 ) 06/25/2020 3:25 PM CLINICAL LABORATORY DIRECTOR Body Mass Index 56.78 06/25/2020 3:25 PM CLINICAL LABORATORY DIRECTOR documented in this encounter Functional Status * [...] * Discharge Instructions* Jaswinder Gaytan MD - 06/25/2020 11:12 PM CLINICAL LABORATORY DIRECTOR Emergency Departments (ED) provide medical screening exams [...] care by your primary care physician or quality assurance consultant. Your medication list was reviewed prior [...] such as many narcotic drug combinations and [id number] cold medicines. Your feedback is important to us. Please fill out the survey you will get in the mail. We need yourinput to give you the best care possible! With your feedback we??ll know where we need to focus ourefforts to provide very good service to our patients! ICAL LABORATORY DIRECTOR * Attachments The following attachments cannot be sent through Care Everywhere. * Gas and Bloating (Estonian) * Shortness of Breath (Dyspnea) Discharge Instructions (Estonian) documented in this encounter Medications at Time [...] ED Notes * Jaswinder Gaytan MD - 06/25/2020 11:03 PM CST Chief Complaint Chief Complaint Patient presents with ??? Shortness Of Breath History of Present Illness NOTE: This patient was cared for in the middle of an unusual surge in emergency department census directly related to the SARS-2/COVID-19 pandemic. As a result, some of the time indices noted below may be inaccurate. The patient is a very pleasant 65-year-old female examined in the emergency department in bed #8. She presents today complaining of abdominal bloating, chest tightness, shortness of breath, nausea, and abdominal pain with eating. She also states it is difficult for her to lay flat to sleep. When speaking with her further regarding her complaints, they all stem from this sense of bloating in her abdomen. She says that her shortness of breath is that she cannot take a deep breath because her abdomen is too bloated. Her chest pain she relates to her abdomen pushing up . She states that she is unable to lay flat to sleep because of her abdomen. Onset has been over the past 2 weeks. The patientstates this is happened before, and no diagnosis has been found. Provoked as described above, palliative by nothing. Quality is as described above. Radiation is as described above. Time course is constant since onset. Medical History ALLERGIES: Allergies [...] for Nausea. 06/25/20 Yes Jaswinder Gaytan MD amitriptyline 25 MG [...] Former Smoker Quit date: 03/23/1977 Years since quittin.2 ??? Smokeless tobacco: Never Used Substance Use Topics ??? Alcohol use: No ??? Drug use: No Review of Systems Review of Systems REVIEW OF SYSTEMS: The patient denies fevers, chills, or sweats. Complains of nausea, denies vomiting, diarrhea, or constipation, complains of abdominal pain. Complains of chest pain, shortness of breath, and dyspnea on exertion, denies palpitations. Denies headache, loss of consciousness, or seizures. Denies dysuria or hematuria. Ten systems reviewed and negative except as described above or in the HPI. Physical Exam Filed Vitals: 06/25/20 2000 06/25/20 2100 06/25/20 2130 06/25/20 2145 BP: 126/85 137/82 Pulse: 81 83 90 84 Resp: Temp: TempSrc: SpO2: 98% 98% 98% 96% Weight: Height: Physical Exam VITALS: Reviewed. [...] that limitation, the patient's abdomen is soft, nondistended, and nontender. No masses, bruits or hepatosplenomegaly are noted. 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1955 Requested By: RONEL WALKER Order Number: [id number] Reading MD: Measurements Intervals [place] Rate: 85 P: 28 NV: 127 QRS: -1 QRSD: 91 T: 41 QT: 354 QTc: 421 Interpretive Statements SINUS RHYTHM Compared to ECG 11/10/2019 16:31:46 No significant changes LABORATORY STUDIES: Results for orders placed or performed during the hospital encounter of 06/25/20 CBC W/DIFF AUTOMATED Result Value Ref Range WBC 11.1 (H) 4.5 - 11.0 x10'3/uL RBC 4.74 4.20 - 5.40 x10'6/uL HGB 13.6 12.0 - 16.0 G/DL HCT 43.8 38.0 - 48.0 % MCV 92.4 80.0 - 94.0 FL MCH 28.7 27.0 - 31.0 PG MCHC 31.1 (L) 32.0 - 36.0 G/DL RDW 14.2 11.5 - 14.5 % PLT 329 130 - 400 x10'3/uL MPV 9.8 9.3 - 12.2 FL DIFFERENTIAL TYPE AUTOMATED DIFFERENTIAL NEUTROPHILS 69.9 % LYMPHOCYTES 21.0 % MONOCYTES 6.4 % EOSINOPHILS 1.9 % BASOPHILS 0.3 % IMMATURE GRANS 0.5 % ABS. NEUTROPHILS TOTAL 7.73 (H) 1.80 - 7.70 x10'3/uL ABS. LYMPHOCYTES 2.32 1.00 - 4.80 x10'3/uL ABS. MONOCYTES 0.71 0.24 - 0.86 x10'3/uL ABS. EOSINOPHILS 0.21 0.04 - 0.36 x10'3/uL ABS. BASOPHILS 0.03 0.01 - 0.08 x10'3/uL ABS. IMMATURE GRANULOCYTES 0.06 0.00 - 0.49 x10'3/uL COMPREHENSIVE METABOLIC PANEL Result Value Ref Range GLUCOSE 210 (H) 70 - 99 MG/DL BUN 18 7 - 18 MG/DL CREATININE S/P/B 0.85 0.55 - 1.02 MG/DL SODIUM 136 136 - 145 MMOL/L POTASSIUM 4.4 3.5 - 5.1 MMOL/L CHLORIDE S/P/B 103 100 - 108 MMOL/L CO2 28.6 21 - 32 MMOL/L CALCIUM 10.0 8.5 - 10.1 MG/DL BILIRUBIN TOTAL S/P/B 0.5 0.2 - 1.2 MG/DL TOTAL PROTEIN S/P/B 8.7 (H) 6.4 - 8.2 G/DL ALBUMIN S/P/B 3.2 (L) 3.4 - 5.0 G/DL AST 17 15 - 37 U/L ALT 27 14 - 55 U/L ALKALINE PHOSPHATASE S/P/B 93 50 - 136 U/L ANION GAP 4.4 (L) 5 - 15 MMOL/L BUN CREATININE RATIO 21.1 6 - 26 A/G RATIO 0.6 (L) 1.0 - 2.0 RATIO eGFR Non-Afr. Amer. 72 (L) >90 ML/MIN/1.73 M2 eGFR Afr. Amer. 84 (L) >90 ML/MIN/1.73 M2 LIPASE Result Value Ref Range LIPASE 127 73 - 393 UNITS/L URINALYSIS WI REFLEX TO CULTURE Specimen: URINE, CLEAN CATCH Result Value Ref Range Specimen Type URINE CLEAN CATCH COLOR (U) LIGHT YELLOW TRANSPARENCY CLEAR Specific [place] (U) 1.022 1.001 - 1.030 U PH 5.5 5.0 - 9.0 LEUKOCYTE ESTERASE NEGATIVE NEGATIVE NITRITES NEGATIVE NEGATIVE PROTEIN (U) NEGATIVE <30 MG/DL URINE GLUCOSE 100 (A) NORMAL MG/DL U KETONES NEGATIVE NEGATIVE MG/DL UROBILINOGEN NORMAL NORMAL MG/DL BILIRUBIN (U) NEGATIVE NEGATIVE MG/DL BLOOD TRACE (A) NEGATIVE CULTURE & SENSITIVITY INDICATED? CULTURE IS NOT INDICATED MUCUS RARE /LPF HYALINE CASTS RARE /LPF WBC/HPF 1 <6 /HPF RBC/HPF 1 <6 /HPF SQUAMOUS EPITHELIALS RARE /HPF TROPONIN, QUANT Result Value Ref Range TROPONIN I <0.015 <0.045 ng/mL. TROPONIN, QUANT Result Value Ref Range TROPONIN I <0.015 <0.045 ng/mL. BNP Result Value Ref Range B TYPE NATRIURETIC PEPTIDE 9 <100 PG/ML THYROID STIM HORMONE, TSH Result Value Ref Range TSH 1.600 0.358 - 3.74 uIU/ML IMAGING STUDIES CT ABD+PEL W IV CON ONLY Final Result by User, [id number] (06/25 2117) Examination: CT ABD+PEL W CON Clinical history: Abdominal distention and bloating Comparison: 09/05/2019, 03/14/2019, 08/20/2017 DATE/TIME: 06/25/2020 8:21 PM Technique: Multiplanar images of the abdomen and pelvis were obtained following the uneventful intravenous administration of 100 mL Isovue 370. A dose lowering technique was used for this procedure, which may include, but is not limited to, dose reduction technique, automated exposure control, the use of iterative reconstruction, and ALARA (As Low As Reasonably Achievable) / Image Gently techniques. Findings: There are a few tiny sub-4 mm noncalcified nodule in the left lower lobe, present since at least 2018 and therefore probably benign, but new since 2018. Liver is negative. Cholecystectomy. No bile duct dilatation. Pancreas is negative. Spleen is negative. Adrenal glands are negative. Small right renal cyst and additional tiny low density right renal lesion, too small to characterize. Kidneys otherwise negative. Bladder unremarkable. Uterus and adnexa are unremarkable. Calcified pelvic phleboliths. Abdominal aorta is normal caliber. No intra-abdominal lymphadenopathy. Ventral hernia repair change with mesh implant. No free intraperitoneal air or fluid. Colonic diverticulosis without evidence of diverticulitis. Normal appendix. No bowel obstruction or bowel wall thickening. No acute osseous abnormality. Stomach and duodenum appear unremarkable. Lumbar spondylosis. Osteitis condensans ilii. IMPRESSION: 1. No acute abnormality identified to explain the patient's acute symptoms. 2. Colonic diverticulosis without diverticulitis. Interpreted By: Osiel Vergara MD, 06/25/2020 9:12 PM XR CHEST PORTABLE Final Result by User, [id number] (06/25 1700) Examination: Chest 1 view portable History: Shortness of breath DATE/TIME: 06/25/2020 4:54 PM Comparison: November 10, 2019 Technique: AP upright portable view of the chest was obtained. Findings: Heart size and mediastinal contours are normal. Borderline pulmonary vascular congestion. No pulmonary consolidation, pleural effusion or pneumothorax. No acute osseous abnormality. Impression: Borderline vascular congestion. No acute infiltrates. Interpreted By: Osiel Vergara MD, 06/25/2020 5:00 PM ED Course / Medical Decision Making [...] no evidence or peritonitis, sepsis, or toxicity. The patient has been ambulated in the emergency department without developing any respiratory difficulties or hypoxia. We have discussed the diagnosis and risks, and we agree with discharging home to follow-up with their primary doctor. We also discussed returning to the Emergency Department immediately if new or worsening symptoms occur. We have discussed the symptoms which are most concerning (e.g., bloody stool, fever, changing or worsening pain, vomiting) that necessitate immediate return. No source for the patient's symptoms is found. She will be referred to primary care. Clinical Impression Abdominal bloating (Primary) Shortness of breath Disposition: Discharge I dictated portions of this note using [employer] speech recognition software. Occasional wrong word or sound-alike substitutions may have occurred due to the inherent limitations of voice recognition software. Please read the chart carefully and recognize, using context, where the substitutions may have occurred. If there are any questions, please contact me via [email or web address] or other HIPAA compliant communication medium for clarification. Jaswinder Gaytan MD 06/25/206 ICAL LABORATORY DIRECTOR * Jane Perez RN - 06/25/2020 9:40 PM CST Pt Bryan given update by phone. All questions answered. ICAL LABORATORY DIRECTOR * Jane Perez RN - 06/25/2020 8:45 PM CST Pt up to [facility]. ICAL LABORATORY DIRECTOR * Jane Perez RN - 06/25/2020 8:30 PM CST Pt in CT. ICAL LABORATORY DIRECTOR * Jane Perez RN - 06/25/2020 8:21 PM CST Lab called and tsh added on. ICAL LABORATORY DIRECTOR * Jane Perez RN - 06/25/2020 8:04 PM CST Pt given warm blankets. Call light within reach. ICAL LABORATORY DIRECTOR * HUMAIRA Sandoval - 06/25/2020 3:34 PM CST [place], [place] EMERGENCY DEPARTMENT ENCOUNTER Medical Screening Examination 06/25/20 3:34 PM Chief Complaint : Shortness Of Breath HPI : Mohsen Marques is a 65-year-old female who presents with multiple complaints, bloating, chest tightness, sob, nausea, and abd pain with eating. Unable to lay flat to sleep. Vital Signs: Filed Vitals: 06/25/20 1525 BP: 135/89 Pulse: 100 Resp: 20 Temp: 98.4 ??F (36.9 ??C) TempSrc: Oral SpO2: 100% Weight: (!) 136.3 kg (300 lb 7.8 oz) Height: 5' 1 (1.549 m) Physical exam: A brief physical exam was completed to facilitate/expedite patient care. Mitchell findings include: rr non labored. Vitals stable. Abd non tender. Plan: Labs & Imaging was ordered to facilitate patient care., Antiemetics were ordered to faciliate patient care. and EKG was ordered to faciliate patient care. HUMAIRA Sandoval 06/25/20 1550 Cosigned by Shorty Alvarado MD at 06/27/2020 11:58 AM CLINICAL LABORATORY DIRECTOR ICAL LABORATORY DIRECTOR ICAL LABORATORY DIRECTOR * Delio Bender RN - 06/25/2020 3:28 PM CST Patient ambulatory to triage for c/o shortness of breath, n/v, mild abd pain, onset a week ago. Mystomach is kind of swollen, it's weird. Denies CP. ICAL LABORATORY DIRECTOR documented in this encounter Plan of Treatment Not on file documented as of this encounter Procedures Procedure Name Priority Date/Time Associated Diagnosis Comments CT ABD+PEL W CON STAT 06/25/2020 8:34 PM CLINICAL LABORATORY DIRECTOR TROPONIN, QUANT STAT 06/25/2020 8:03 PM CLINICAL LABORATORY DIRECTOR XR CHEST PORTABLE STAT 06/25/2020 4:5 4 PM CLINICAL LABORATORY DIRECTOR URINALYSIS WI REFLEX TO CULTURE STAT 06/25/2020 4:24 PM CLINICAL LABORATORY DIRECTOR ECG 12-LEAD STAT 06/25/2020 4:11 PM CLINICAL LABORATORY DIRECTOR BNP STAT 06/25/2020 4:00 PM CLINICAL LABORATORY DIRECTOR COMPREHENSIVE METABOLIC PANEL STAT 06/25/2020 4:00 PM CLINICAL LABORATORY DIRECTOR CBC W/DIFF AUTOMATED STAT 06/25/2020 4:00 PM CLINICAL LABORATORY DIRECTOR TROPONIN, QUANT STAT 06/25/2020 4:00 PM CLINICAL LABORATORY DIRECTOR THYROID STIM HORMONE TSH STAT 06/25/2020 4:00 PM CLINICAL LABORATORY DIRECTOR LIPASE STAT 06/25/2020 4:00 PM CLINICAL LABORATORY DIRECTOR documented in this encounter Results * CT ABD+PEL W IV CON ONLY (06/25/2020 8:34 PM CLINICAL LABORATORY DIRECTOR) Anatomical Region Laterality Modality Abdomen Computed Tomogra phy 06/25/2020 9:12 PM CLINICAL LABORATORY DIRECTOR Impressions 06/25/2020 9:17 PM CLINICAL LABORATORY DIRECTOR IMPRESSION: 1. ??No acute abnormality identified to explain the patient's acute symptoms. 2. ??Colonic diverticulosis without diverticulitis. Interpreted By: Osiel Vergara MD, 06/25/2020 9:12 PM Narrative 06/25/2020 9:17 PM CLINICAL LABORATORY DIRECTOR Examination: CT ABD+PEL W CON Clinical history: Abdominal distention and bloating Comparison: 09/05/2019, 03/14/2019, 08/20/2017 DATE/TIME: 06/25/2020 8:21 PM Technique: Multiplanar images of the abdomen and pelvis were obtained following the uneventful intravenous administration of 100 mL Isovue 370. A dose lowering technique was used for this procedure, which may include, but is not limited to, dose reduction technique, automated exposure control, the use of iterative reconstruction, and ALARA (As Low As Reasonably Achievable) / Image Gently techniques. Findings: There are a few tiny sub-4 mm noncalcified nodule in the left lower lobe, present since at least 2018 and therefore probably benign, but new since 2018. Liver is negative. ??Cholecystectomy. ??No bile duct dilatation. ??Pancreas is negative. ??Spleen is negative. ??Adrenal glands are negative. ??Small right renal cyst and additional tiny low density right renal lesion, too small to characterize. ??Kidneys otherwise negative. ??Bladder unremarkable. ??Uterus and adnexa are unremarkable. ??Calcified pelvic phleboliths. ??Abdominal aorta is normal caliber. ??No intra-abdominal lymphadenopathy. Ventral hernia repair change with mesh implant. ??No free intraperitoneal air or fluid. ??Colonic diverticulosis without evidence of diverticulitis. ??Normal appendix. ??No bowel obstruction or bowel wall thickening. ??No acute osseous abnormality. ??Stomach and duodenum appear unremarkable. ??Lumbar spondylosis. ??Osteitis condensans ilii. Procedure Note Osiel Vergara MD - 06/25/2020 Examination: CT ABD+PEL W CON Clinical history: Abdominal distention and bloating Comparison: 09/05/2019, 03/14/2019, 08/20/2017 DATE/TIME: 06/25/2020 8:21 PM Technique: Multiplanar images of the abdomen and pelvis were obtainedfollowing the uneventful intravenous administration of 100 mL Isovue 370.A dose lowering technique was used for this procedure, which may include,but is not limited to, dose reduction technique, automated exposurecontrol, the use of iterative reconstruction, and ALARA (As Low AsReasonably Achievable) / Image Gently techniques. Findings: There are a few tiny sub-4 mm noncalcified nodule in the leftlower lobe, present since at least 2019 and therefore probably benign, butnew since 2018. Liver is negative. Cholecystectomy. No bile duct dilatation. Pancreasis negative. Spleen is negative. Adrenal glands are negative. Smallright renal cyst and additional tiny low density right renal lesion, toosmall to characterize. Kidneys otherwise negative. Bladder unremarkable.Uterus and adnexa are unremarkable. Calcified pelvic phleboliths.Abdominal aorta is normal caliber. No intra-abdominal lymphadenopathy. Ventral hernia repair change with mesh implant. No free intraperitonealair or fluid. Colonic diverticulosis without evidence of diverticulitis.Normal appendix. No bowel obstruction or bowel wall thickening. No acuteosseous abnormality. Stomach and duodenum appear unremarkable. Lumbarspondylosis. Osteitis condensans ilii. IMPRESSION: 1. No acute abnormality identified to explain the patient's acutesymptoms. 2. Colonic diverticulosis without diverticulitis. Interpreted By: Osiel Vergara MD, 06/25/2020 9:12 PM Jaswinder Gaytan MD CT Final Result * TROPONIN, QUANT (06/25/2020 8:03 PM CLINICAL LABORATORY DIRECTOR) TROPONIN I <0.015 <0.045 ng/mL. 06/25/2020 8:41 PM CLINICAL LABORATORY DIRECTOR [facility] Comment: HIGH DOSES OF BIOTIN MAY INTERFERE WITH THIS TEST RESULT. CORRELATION TO CLINICAL HISTORY AND PRESENTATION RECOMMENDED. 06/25/2020 8:03 PM CLINICAL LABORATORY DIRECTOR Ronel Walker [facility]LL[facility] HAND LABORATORY Final Re sult [facility] [address] [place] [address], [place] [phone] * XR CHEST PORTABLE (06/25/2020 4:54 PM CLINICAL LABORATORY DIRECTOR) Anatomical Region Laterality Modality Chest Radiographic Lizeth ging 06/25/2020 5:00 PM CLINICAL LABORATORY DIRECTOR Impressions 06/25/2020 5:00 PM CLINICAL LABORATORY DIRECTOR Impression: Borderline vascular congestion. ??No acute infiltrates. Interpreted By: Osiel Vergara MD, 06/25/2020 5:00 PM Narrative 06/25/2020 5:00 PM CLINICAL LABORATORY DIRECTOR Examination: Chest 1 view portable History: Shortness of breath DATE/TIME: 06/25/2020 4:54 PM Comparison: November 10, 2019 Technique: AP upright portable view of the chest was obtained. Findings: Heart size and mediastinal contours are normal. ??Borderline pulmonary vascular congestion. ??No pulmonary consolidation, pleural effusion or pneumothorax. ??No acute osseous abnormality. Procedure Note Osiel Vergara MD - 06/25/2020 Examination: Chest 1 view portable History: Shortness of breath DATE/TIME: 06/25/2020 4:54 PM Comparison: November 10, 2019 Technique: AP upright portable view of the chest was obtained. Findings: Heart size and mediastinal contours are normal. Borderlinepulmonary vascular congestion. No pulmonary consolidation, pleuraleffusion or pneumothorax. No acute osseous abnormality. Impression: Borderline vascular congestion. No acute infiltrates. Interpreted By: Osiel Vergara MD, 06/25/2020 5:00 PM Ronel Walker [facility] GENERAL IMAGING Final Re sult * (ABNORMAL) URINALYSIS WI REFLEX TO CULTURE (06/25/2020 4:24 PM CLINICAL LABORATORY DIRECTOR) SPECIMEN TYPE URINE CLEAN CATCH 06/25/2020 4:22 PM CLINICAL LABORATORY DIRECTOR [facility] COLOR (U) LIGHT YELLOW 06/25/2020 5:22 PM CLINICAL LABORATORY DIRECTOR [facility] TRANSPARENCY CLEAR 06/25/2020 5:22 PM CLINICAL LABORATORY DIRECTOR [facility] SPECIFIC GRAVITY (U) 1.022 1.001 - 1.030 06/25/2020 5:[address] [facility] U PH 5.5 5.0 - 9.0 06/25/2020 5:[address] [facility] LEUKOCYTES (U) NEGATIVE NEGATIVE 06/25/2020 5:[address] [facility] NITRITES NEGATIVE NEGATIVE 06/25/2020 5:[address] [facility] PROTEIN (U) NEGATIVE <30 MG/DL 06/25/2020 5:[address] [facility] URINE GLUCOSE 100(A) NORMAL MG/DL 06/25/2020 5:[address] [facility] KETONES MG/DL (U) NEGATIVE NEGATIVE MG/DL 06/25/2020 5:[address] [facility] UROBILINOGEN NORMAL NORMAL MG/DL 06/25/2020 5:[address] [facility] BILIRUBIN (U) NEGATIVE NEGATIVE MG/DL 06/25/2020 5:[address] [facility] BLOOD (U) TRACE(A) NEGATIVE 06/25/2020 5:[address] [facility] CULTURE & SENSITIVITY INDICATED? CULTURE IS NOT INDICATED 06/25/2020 5:[address] [facility] MUCUS RARE /LPF 06/25/2020 5:[address] [facility] HYALINE CASTS RARE /LPF 06/25/2020 5:[address] [facility] WBC/HPF 1 <6 /HPF 06/25/2020 5:[address] [facility] RBC/HPF 1 <6 /HPF 06/25/2020 5:[address] [facility] SQUAMOUS EPITHELIALS RARE /HPF 06/25/2020 5:22 PM CLINICAL LABORATORY DIRECTOR [facility] URINE SPECIMEN OBTAINED BY CLEAN CATCH PROCEDURE / Unknown 06/25/2020 4:24 PM CLINICAL LABORATORY DIRECTOR us Ronel Walker [facility] HAND URINE ORDERABLES Final R esult Performing Organization Address [facility]/State/ZIP Co de Phone Number [facility] [address] [place] [address], * ECG 12 lead (06/25/2020 4:11 PM CLINICAL LABORATORY DIRECTOR) 06/25/2020 4:11 PM CLINICAL LABORATORY DIRECTOR Narrative [facility] - 06/26/2020 6:00 AM CLINICAL LABORATORY DIRECTOR ?[facility]ordyceluz elena Ordonez ? [address] [facility] [place] ? Test Date: ?2020-06-25 Pat Name: ? MOHSEN MARQUES ?Department: ? Room: ? EXAM08 Gender: ? Female ? 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 : ?1955 ? Requested By: RONEL WALKER Order Number: [id number] ? Reading MD: ?? Noe Cowan ? Measurements Intervals ?[place] ? Rate: ? 85 ? P: ?28 NV: ? 127 ?QRS: ?-1 QRSD: ? 91 ? T: ?41 QT: ? 354 ? QTc: ?421 ? Interpretive Statements SINUS RHYTHM Compared to ECG 11/10/2019 16:31:46 No significant changes ICAL LABORATORY DIRECTOR Procedure Note Noe Cowan MD - 06/26/2020 [place] [address] [facility] Test Date: 2020-06-25 Pat Name: MOHSEN MARQUES Department: Room: [facility] Gender: Female [employer]: : 1955 Requested By: RONEL AWLKER Order Number: [id number] Reading : Noe Cowan Measurements Intervals [place] Rate: 85 P: 28 NV: 127 QRS: -1 QRSD: 91 T: 41 QT: 354 QTc: 421 Interpretive Statements SINUS RHYTHM Compared to ECG 11/10/2019 16:31:46 No significant changes ICAL LABORATORY DIRECTOR Ronel Walker REROLLER HAND ECG ORDERABLES Final Re sult Performing Organization Address City/[facility]/ZIP Co de Phone Number [facility] [facility] * THYROID STIM HORMONE, TSH (06/25/2020 4:00 PM CLINICAL LABORATORY DIRECTOR) [facility] TSH 1.600 0.358 - 3.74 uIU/ML 06/25/2020 9:03 PM CLINICAL LABORATORY DIRECTOR [facility] Comment: HIGH DOSES OF BIOTIN MAY INTERFERE WITH THIS TEST RESULT. CORRELATION TO CLINICAL HISTORY AND PRESENTATION RECOMMENDED. 06/25/2020 4:00 PM CLINICAL LABORATORY DIRECTOR Jaswinder Gaytan MD LABORATORY Final Result Performing Organization Address [facility] Co de Phone Number [facility] [address] [place] [phone], * TROPONIN, QUANT (06/25/2020 4:00 PM CLINICAL LABORATORY DIRECTOR) [facility] TROPONIN I <0.015 <0.045 ng/mL. 06/25/2020 4:42 PM CLINICAL LABORATORY DIRECTOR [facility] Comment: HIGH DOSES OF BIOTIN MAY INTERFERE WITH THIS TEST RESULT. CORRELATION TO CLINICAL HISTORY AND PRESENTATION RECOMMENDED. 06/25/2020 4:00 PM CLINICAL LABORATORY DIRECTOR Ronel OLGUINP LABORATORY Final Re sult Performing Organization Address City/[facility]/ZIP Co de Phone Number [facility] [address] [place] [address], [place] [phone] * BNP (06/25/2020 4:00 PM CLINICAL LABORATORY DIRECTOR) [facility] B TYPE NATRIURETIC PEPTIDE 9 <100 PG/ML 06/25/2020 4:47 PM CLINICAL LABORATORY DIRECTOR [facility] 06/25/2020 4:00 PM CLINICAL LABORATORY DIRECTOR Ronel Walker [facility] LABORATORY Final Re sult [facility] [address] [place] [address], * LIPASE (06/25/2020 4:00 PM CLINICAL LABORATORY DIRECTOR) Pathologist [facility] LIPASE 127 73 - 393 UNITS/L 06/25/2020 4:42 PM CLINICAL LABORATORY DIRECTOR [facility] 06/25/2020 4:00 PM [facility] Final Re sult [facility] [address] [place] [address], * (ABNORMAL) COMPREHENSIVE METABOLIC PANEL (06/25/2020 4:00 PM CLINICAL LABORATORY DIRECTOR) Pathologist [facility] GLUCOSE 210(H) 70 - 99 MG/DL 06/25/2020 4:42 PM CLINICAL LABORATORY DIRECTOR [facility] BUN 18 7 - 18 MG/DL 06/25/2020 4:[address] [facility] CREATININE S/P/B 0.85 0.55 - 1.02 MG/DL 06/25/2020 4:42 PM CLINICAL LABORATORY DIRECTOR [facility] SODIUM S/P/B 136 136 - 145 MMOL/L 06/25/2020 4:[address] [facility] POTASSIUM S/P/B 4.4 3.5 - 5.1 MMOL/L 06/25/2020 4:[address] [facility] CHLORIDE S/P/B 103 100 - 108 MMOL/L 06/25/2020 4:[address] [facility] CO2 28.6 21 - 32 MMOL/L 06/25/2020 4:[address] [facility] CALCIUM S/P/B 10.0 8.5 - 10.1 MG/DL 06/25/2020 4:[address] [facility] BILIRUBIN TOTAL S/P/B 0.5 0.2 - 1.2 MG/DL 06/25/2020 4:[address] [facility] Comment: THIS ASSAY IS NOT RECOMMENDED FOR PATIENTS UNDERGOING TREATMENT WITH ELTROMBOPAG DUE TO THE POTENTIAL FOR FALSELY ELEVATED RESULTS. TOTAL PROTEIN S/P/B 8.7(H) 6.4 - 8.2 G/DL 06/25/2020 4:[address] [facility] ALBUMIN S/P/B 3.2(L) 3.4 - 5.0 G/DL 06/25/2020 4:[address] [facility] AST 17 15 - 37 U/L 06/25/2020 4:[address] [facility] ALT 27 14 - 55 U/L 06/25/2020 4:[address] [facility] ALKALINE PHOSPHATASE S/P/B 93 50 - 136 U/L 06/25/2020 4:[address] [facility] ANION GAP 4.4(L) 5 - 15 MMOL/L 06/25/2020 4:[address] [facility] BUN CREATININE RATIO 21.1 6 - 26 06/25/2020 4:[address] [facility] A/G RATIO 0.6(L) 1.0 - 2.0 RATIO 06/25/2020 4:[address] [facility] EGFR NON-AFR. AMER. 72(L) >90 ML/MIN/1.7 3 M2 06/25/2020 4:42 PM CLINICAL LABORATORY DIRECTOR [facility] EGFR AFR. AMER. 84(L) >90 ML/MIN/1.7 3 M2 06/25/2020 4:42 PM CLINICAL LABORATORY DIRECTOR [facility] Comment: NOTE: eGFR is not calculated for patients <18 years of age. This is an estimated GFR (CKD EPI) and should not be used for calculating drug doses. 06/25/2020 4:00 PM CLINICAL LABORATORY DIRECTOR Ronel Walker [facility] LABORATORY Final Re sult [facility] [address] [place] [address], [place] [phone] * (ABNORMAL) CBC W/DIFF AUTOMATED (06/25/2020 4:00 PM CLINICAL LABORATORY DIRECTOR) WBC 11.1(H) 4.5 - 11.0 x10'3/uL 06/25/2020 4:20 PM CLINICAL LABORATORY DIRECTOR [facility] RBC 4.74 4.20 - 5.40 x10'6/uL 06/25/2020 4:[address] [facility] HGB 13.6 12.0 - 16.0 G/DL 06/25/2020 4:20 PM CLINICAL LABORATORY DIRECTOR [facility] HCT 43.8 38.0 - 48.0 % 06/25/2020 4:20 PM CLINICAL LABORATORY DIRECTOR [facility] MCV 92.4 80.0 - 94.0 FL 06/25/2020 4:[address] [facility] MCH 28.7 27.0 - 31.0 PG 06/25/2020 4:[address] [facility] MCHC 31.1(L) 32.0 - 36.0 G/DL 06/25/2020 4:[address] [facility] RDW 14.2 11.5 - 14.5 % 06/25/2020 4:[address] [facility] PLT 329 130 - 400 x10'3/uL 06/25/2020 4:[address] [facility] MPV 9.8 9.3 - 12.2 FL 06/25/2020 4:[address] [facility] DIFFERENTIAL TYPE AUTOMATED DIFFERENTIAL 06/25/2020 4:[address] [facility] NEUTROPHILS % 69.9 % 06/25/2020 4:[address] [facility] LYMPHOCYTES % 21.0 % 06/25/2020 4:[address] [facility] MONOCYTES % 6.4 % 06/25/2020 4:[address] [facility] EOSINOPHILS 1.9 % 06/25/2020 4:[address] [facility] BASOPHILS 0.3 % 06/25/2020 4:[address] [facility] IMMATURE GRANS % 0.5 % 06/26/19 4:[address] [facility] ABS. NEUTROPHILS TOTAL 7.73(H) 1.80 - 7.70 x10'3/uL 06/25/2020 4:[address] [facility] ABS. LYMPHOCYTES 2.32 1.00 - 4.80 x10'3/uL 06/25/2020 4:[address] [facility] ABS. MONOCYTES 0.71 0.24 - 0.86 x10'3/uL 06/25/2020 4:[address] [facility] ABS. EOSINOPHILS 0.21 0.04 - 0.36 x10'3/uL 06/25/2020 4:20 PM CLINICAL LABORATORY DIRECTOR [facility] ABS. BASOPHILS 0.03 0.01 - 0.08 x10'3/uL 06/25/2020 4:20 PM CLINICAL LABORATORY DIRECTOR [facility] ABS. IMMATURE GRANULOCYTES 0.06 0.00 - 0.49 x10'3/uL 06/25/2020 4:20 PM CLINICAL LABORATORY DIRECTOR [facility] 06/25/2020 4:00 PM CLINICAL LABORATORY DIRECTOR Ronel Walker [facility] Final Re sult [facility] [address] [place] [address], documented in this encounter Visit Diagnoses Diagnosis Abdominal bloating- Primary Flatulence, eructation, and gas pain Shortness of breath documented in this encounter Administered Medications Inactive Administered Medications - up to 3 most recent administrations Medication Order MAR Action Action Date Dose Rate Site iopamidol (ISOVUE-370) 76 % injection 100 mL 100 mL, Intravenous, IMG once as needed, Contrast, 1 dose, Starting on Valeri 06/25/20 at 2033, Until Valeri 06/25/20 at 2034 Given 06/25/2020 8:35 PM CLINICAL LABORATORY DIRECTOR 100 mLs Right Arm ondansetron (ZOFRAN) 4 MG/2ML injection 1 dose, Starting on Valeri 06/25/20 at 1949, Until Valeri 06/25/20 at 1951, Created by cabinet override ondansetron (ZOFRAN) injection 4 mg 4 mg, Intravenous, Once, 1 dose, On Valeri 06/25/20 at 1999, IV push over 2-5 minutes. Given 06/25/2020 7:52 PM CLINICAL LABORATORY DIRECTOR 4 mg documented in this encounter Active and Recently Administered Medications Times are shown in CLINICAL LABORATORY DIRECTOR. Scheduled Medication Order 06/23/2020 06/24/2020 06/25/2020 ondansetron (ZOFRAN) injection 4 mg (COMPLETED) 4 mg, Intravenous, Once, 1 dose, On Valeri 06/25/20 at 1999, IV push over 2-5 minutes. 1951 (Given - Provid er: Jane Perez, RN) PRN Medication Order 06/23/2020 06/24/2020 06/25/2020 iopamidol (ISOVUE-370) 76 % injection 100 mL (COMPLETED) 100 mL, Intravenous, IMG once as needed, Contrast, 1 dose, Starting on Valeri 06/25/20 at 2033, Until Valeri 06/25/20 at 2034 2034 (Given - Provid er: Alicia Lemons, RTR) documented in this encounter Additional Health Concerns Infection Onset Date Last Indicated Resolved Time MRSA Comment:MRSA nares pos. 02/201808/31/2018 08/31/2018 07/02/19 2:54 AM CLINICAL LABORATORY DIRECTOR documented as of this encounter Care Teams Edi Architect Relationship Specialty Start Date End Date Justen Gale MD [address] [place], [place] [id number] PCP - General FAMILY PRACTICE 08/20/17 Meena Bansal MD [address] [place], [place] [id number] José Luis Winding Inspector And Tester CARDIOVASCULAR DISEASE 04/24/16 documented as of this encounter
--- OUTSIDE RECORDS SUMMARY | 2024-04-26 02:41 | XMS_ITS | Encounter Summary ---
Author Organization [facility] Address [address] [place] [address]. [place] [address] [place] [address] Care Team Providers Care Applications Systems Engineer Name Role Phone Meena Bansal MD Unavailable [phone] Justen Gale MD Primary Care Provider [phone] Reason for Visit * Auth/Cert Specialty Diagnoses / Procedures Referred By Contac t Referred To Contact Diagnoses Abdominal pain Abdominal pain Referral ID Status Reason Start Date Expiration Date Visits Re quested Visits Authorized [id number] 1 1 Encounter Details Date Type Department Care Team (Late st Contact Info) Description 09/10/2018 6:08 PM CDT Anesthesia Event Di[facility]' Endo/GI [address] [place] [address] Nehemias Brown MD [address] [id number] Adriana Arias CRNA [address] [facility] [address] [address] Anesthesia Record Procedure Summary Procedure Name Responsible Anesthesiologist Anesthesia Start Time Anesthesia Stop Time EGD Nehemias Brown MD 09/10/18 1808 09/10/18 18 34 Events Date Time Event Comment 09/10/2018 1808 AN BRAND STRATEGIST Prepped 1808 An Start Patient ID and consent checked and patient reassessed. 1808 An Start Data 1809 1809 AN Anesthesia Prepped 181 Nasal Cannula Applied 181 Preoxygenation 181 An Induction 1814 Anesthesia Ready 1830 An Emergence 1833 Post Anesthetic Care Handoff I completed my handoff to the receiving nurse during which we: 1. Identified the patient 2. Identified the responsible provider 3. Reviewed the pertinent medical history 4. Discussed the surgical course 5. Reviewed intra-op anesthesia management and issues during anesthesia 6. Set expectations for post-procedure period 7. Allowed opportunity for questions and acknowledgement of understanding. 1833 an stop data 1833 Nasal Cannula Removed 1833 An Stop Meds Name Total lidocaine (PF) (XYLOCAINE) 2% injection 50 mg propofol (DIPRIVAN) 200 mg/20 mL injecti on 340 mg lactated ringers infusion 200 mL * Agents Name O2 N2O Air Ancillary O2 * Blood No blood administrations on file. Lines, Drains, and Airways Type Details Placement Removal Peripheral IV Placement Date: 09/09/18; Placement Time: 53; Placed Outside of This Facility?: No; Size: 18 G; Orientation: Right; Location: Antecubital; Site Prep: Chlorhexidine; Insertion attempts: 1; Patient Tolerance: Tolerated well; Removal Date: 09/11/18; Removal Time: 1613; Removal Reason: Patient Discharged 09/09/1853 by Larissa Tobias RN 09/11/181613 by Albert Gaxiola RN Supraglottic Airway Placement Date: 09/10/18; Placement Time: 1810; Airway Device: Nasal prong; Removal Date: 09/10/18; Removal Time: 18309/10/181810 by Adriana Arias CRNA 09/10/181833 by Adriana Arias CRNA documented in this encounter Social History Tobacco [...] Sexual Orientation Straight 03/18/2018 3: 01 AM 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 documented as of this encounter Functional Status [...] Juan RN Active documented in this encounter OR Notes * Anesthesia Postprocedure Evaluation - Albert Bella CRNA - 09/11/2018 11:48 AM CDT Anesthesia Post-op Note Karly Marques Procedure(s): EGD (N/A ) COLONOSCOPY (N/A ) Anesthesia type: general Vitals: 09/11/18455 BP: 110/69 Vitals: 09/11/18 0200 Pulse: 75 Vitals: 09/11/18455 Resp: 18 Vitals: 09/11/18455 Temp: 36.8 ??C Vitals: 09/11/18455 SpO2: 93% Patient Location: Inpatient Unit Level of Consciousness: awake, alert and oriented Pain Management: pain being treated or addressed Airway Patency: patent Respiratory Status: acceptable, unassisted, spontaneous ventilation and nonlabored ventilation Cardiovascular Status: acceptable Post-Op Nausea: none Postoperative Hydration: euvolemic Complications: no anesthesia complication * Anesthesia Postprocedure Evaluation - Nehemias Brown MD - 09/10/2018 6:47 PM CDT Anesthesia Post-op Note Karly Marques Procedure(s): EGD (N/A ) COLONOSCOPY (N/A ) Anesthesia type: general Vitals: 09/10/18 1841 BP: 110/67 Vitals: 09/10/18 1841 Pulse: 84 Vitals: 09/10/18 1841 Resp: 16 Vitals: 09/10/18 1835 Temp: 36.4 ??C Vitals: 09/10/18 1841 SpO2: 98% Patient Location: Other Level of Consciousness: awake Pain Management: adequate analgesia Airway Patency: patent Respiratory Status: acceptable Cardiovascular Status: acceptable Post-Op Nausea: none Postoperative Hydration: euvolemic Complications: no anesthesia complication * Anesthesia Preprocedure Evaluation - Nehemias Brown MD - 09/10/2018 6:06 PM CDT Anesthesia ROS/MED History Reviewed: Patient summary , Nursing notes , ECG, Family history anesthesia, Anesthesia history , Medications , Labs , Images/Studies Pre-Anesthetic State: alert, awake and responds appropriately history of anesthetic complications Pulmonary (+) sleep apnea, (CPAP) Cardiovascular Exercise tolerance:poor (+) hypertension ROS comment: History of DVT Neuro/Psych (+) neuromuscular disease, (neuropathy), headaches GI/Hepatic/Renal (+) renal disease, (Renal Calculi) Endo/Other (+) diabetes mellitus, (sub Q insulin), obese, (Super Morbid), hypothyroidism (Not currentlly on medications), arthritis, blood dyscrasia, (Anemia) Comments: Breast cancer with lymph node dissection in past. GENERAL COMMENTS -- Ativan (Lorazepam) -- Hyperactive -- Aggrevates restless leg syndrome -- Cephalosporins -- Anaphylaxis -- Rocephin (Ceftriaxone) -- Shortness of Breath -- Levofloxacin -- Hives -- Oxycodone -- Vomiting -- Reglan (Metoclopramide) -- Hyperactive -- Trazodone -- Other (see comment) -- Shaky, restlessness, itching, throat swelling Past Medical History: No date: Arthritis No date: Blood clot in vein No date: Breast cancer ([facility]/HCC) No date: Cancer ([facility]) No date: Diabetes mellitus ([facility]) No date: Disease of thyroid gland No date: Hypertension No date: Kidney stones No date: Neuropathy No date: Restless leg syndrome No date: Spinal headache Comment: Has Bulging disc in lower back and Neck Past Surgical History: No date: SECTION No date: CHOLECYSTECTOMY No date: HERNIA REPAIR No date: MASTECTOMY No date: TOTAL KNEE ARTHROPLASTY Physical Evaluation Airway Mallampati: III TM Distance: >3 FB Neck ROM: normal Dental No notable dental history Pulmonary Pulmonary exam normal Breath sounds clear to auscultation Cardiovascular Rhythm: regular Rate: normal Cardiovascular exam normal Other findings: Blood pressure 113/74, pulse 66, temperature 36.4 ??C, temperature source Temporal,resp. rate 18, height 5' 1 (1.549 m), weight 131.5 kg (290 lb), SpO2 100 %. 09/10/18 0557 WBC 7.6 RBC 3.93* HGB 10.9* HCT 35.8* PLT 268 NA 136 K 4.3 CL 106 CO2 22.6 AGAP 11.7 BUN 13 CR 0.64 BUNCREATININ 20.3 GFRNON >90 GFR >90 GLU 121* CA 8.5 Anesthesia Plan ASA 3 Intravenous Induction Anesthesia type: general Discussed potential risks of General Anesthesia including but not limited to corneal abrasion, visual impairment or visual loss, mouth injury, dental damage, sore throat, hoarseness, esophageal injury, awareness under anesthesia, nerve injury due to positioning, aspiration, pneumonia, stroke, cardiac event, adverse drug reactions and . Tiva anesthetic planned and discussed. Possible GA as needed. Informed Consent Anesthetic plan and risks discussed with patient of whom consent was obtained. . documented in this encounter Plan of Treatment Not on file documented as of this encounter Visit Diagnoses Not on filedocumented in this encounter Administered Medications Inactive Administered Medications - up to 3 most recent administrations Medication Order MAR Action Action Date Dose Rate Site lactated ringers infusion at 10 mL/hr, Intravenous, Continuous, Starting on Mon09/10/18 at 1830, Until Mon09/11/18 at 1922, Infuse at TKO rate, Pre-Op New Bag 09/10/2018 6:08 PM CDT lidocaine (PF) (XYLOCAINE) 2 % injection Intravenous, PRN, Starting on Mon09/10/18 at 1813, Until Mon09/10/18 at 1834, Anesthesia Intra-Op Given 09/10/2018 6:13 PM CDT 50 mg propofol (DIPRIVAN) IV bolus Intravenous, PRN, Starting on Mon09/10/18 at 1813, Until Mon09/10/18 at 1834, Anesthesia Intra-Op Given 09/10/2018 6:31 PM CDT 30 mg Given 09/10/2018 6:29 PM CDT 20 mg Given 09/10/2018 6:27 PM CDT 40 mg documented in this encounter Additional Health Concerns Infection Onset Date Last Indicated Resolved Time MRSA Comment:MRSA nares pos. 02/201808/31/2018 08/31/2018 07/02/19 21 2:54 AM 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 documented as of this encounter Care Teams Applications Systems Engineer Relationship Specialty Start Date End Date Justen Gale MD [facility]. [id number] [place] [address] PCP - General FAMILY PRACTICE 08/20/17 Meena Bansal MD [facility]. [address] [place] [address] [employer] Basketball Coach CARDIOVASCULAR DISEASE 04/24/16 documented as of this encounter
--- OUTSIDE RECORDS SUMMARY | 2024-04-26 02:41 | XMS_ITS | Encounter Summary ---
Author Organization [facility] Address [address] [place] [address]. 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 02/201808/31/2018 08/31/2018 07/02/19 21 2:54 AM WRAPPER HANDS SPRAYER documented as of this encounter Care Teams Aquatic Physiotherapist Relationship Specialty Start Date End Date [facility] [address] [address] PCP - General FAMILY PRACTICE 08/20/17 Meena Bansal MD [facility] [address] [address] José Luis Wedding Makeup Artist CARDIOVASCULAR DISEASE 04/24/16 documented as of this encounter
--- OUTSIDE RECORDS SUMMARY | 2024-04-26 02:41 | XMS_ITS | Encounter Summary ---
Author Organization [facility] Address [address] [place] [address]. [place] [address] [place] [address] Care Team Providers Care Welding Production Supervisor Name Role Phone Meena Bansal MD Unavailable [phone] Justen Gale MD Primary Care Provider [phone] Reason for Referral * Imaging (Emergency) - Closed Specialty Diagnoses / Procedures Referred By Elyssa benavides Referred To Contact RADIOLOGY Procedures CTA CHEST Bria Belcher FNP- Referral ID Status Reason Start Date Expiration Date Visits Re quested Visits Authorized [id number] Closed 03/14/2019 04/13/2020 1 1 PROJECT MANAGER Reason for Visit * Reason Comments Foot Pain Encounter Details Date Type Department Care Team (Late st Contact Info) Description 03/14/2019 6:46 PM HVAC PROJECT MANAGER - 03/14/2019 10:30 PM HVAC PROJECT MANAGER Emergency [facility] [place] [address] Nayeli White PA-C [address] [id number] Foot Pain Discharge Disposition: Home or Self Care [...] Sexual Orientation Straight 03/18/2018 3: 01 AM HVAC PROJECT MANAGER documented as of this encounter Last Filed Vital Signs Vital Sign Reading Time Taken Comments Blood Pressure 117/59 03/14/2019 10:25 PM HVAC PROJECT MANAGER Pulse 76 03/14/2019 10:25 PM HVAC PROJECT MANAGER Temperature 36.7 ??C (98 ??F) 03/14/2019 6:13 PM HVAC PROJECT MANAGER Respiratory Rate 20 03/14/2019 10:25 PM HVAC PROJECT MANAGER Oxygen Saturation 95% 03/14/2019 10:25 PM HVAC PROJECT MANAGER Inhaled Oxygen Concentration - - Weight 132.5 kg (292 lb) 03/14/2019 6:13 PM HVAC PROJECT MANAGER Height 154.9 cm (5' 1 ) 03/14/2019 6:13 PM HVAC PROJECT MANAGER Body Mass Index 55.17 03/14/2019 6:13 PM HVAC PROJECT MANAGER documented in this encounter Functional Status * [...] * Discharge Instructions* Nayeli White PA-C - 03/14/2019 10:18 PM HVAC PROJECT MANAGER Continue all chronic home medications. Follow-up with your semiconductor packages leak tester for your MRI tomorrow. Follow-up with your primary care provider. PROJECT MANAGER * Attachments The following attachments cannot be sent through Care Everywhere. * Muscle and Bone Pain Discharge Instructions (Croatian) documented in this encounter Medications at Time [...] with food.). 60 tablet 9 06/26/19 21 hydrocodone-acetam inophen 5-325 MG tablet Take 1-2 tablets by mouth every 6 (six) hours as needed for Pain. 15 tablet 9 07/01/19 20 hydrocodone-acetam inophen 7.5-325 MG tablet Take 1-2 tablets by mouth every 4 (four) hours as needed for Pain. 07/01/19 20 lisinopril 20 MG tablet Take 20 mg by mouth daily. 10/13/19 24 oxybutynin 5 MG tablet Take 5 mg by mouth 2 (two) times daily. 10/13/19 24 documented as of this encounter ED Notes * Kimberly Pineda RN - 03/14/2019 9:05 PM CST Provider at bedside updating pt and family PROJECT MANAGER * Kimberly Pineda RN - 03/14/2019 9:01 PM CST Pt requesting more pain medication, LINDA White made aware PROJECT MANAGER * Kimberly Pineda RN - 03/14/2019 8:29 PM CST Pt to CT PROJECT MANAGER * Nayeli White PA-C - 03/14/2019 7:47 PM CST ED NOTE Mohsen Marques 1955 Chief Complaint Chief Complaint Patient presents with ??? Foot Pain History of Present Illness 63-year-old obese white female patient with long-standing history of chronic back pain who takes daily narcotic pain medication via pain management, presents to the emergency room complaining of sharp severe left lateral foot pain that extends into the left medial calf. Symptoms for 3 weeks. She states that she initially tripped and twisted her foot, feeling a popping sensation 3 weeks ago. She was seen by her PCP, was placed in a walking boot and had negative foot x- ray. Pain has continued. She was referred to a semiconductor packages leak tester who has seen her as well, and who has scheduled her an MRI of the foot scheduled for tomorrow. No new injury since then. States yesterday she had experienced some mild i ntermittent chest pain or shortness of breath. She does have a history of DVT and PE, and she is currently on Xarelto. Medical History ALLERGIES: Allergies Allergen Reactions ??? [...] Give with food 08/09/17 Doc Abstract hydrocodone-acetaminophen 5-325 MG tablet Take 1-2 tablets by mouth every 6 (six) hours as needed for Pain. 12/16/18 Jayro Cervantes MD hydrocodone-acetaminophen 7.5-325 MG tablet Take 1-2 tablets [...] Last attempt to quit: 03/23/1977 Years since quittin.0 ??? Smokeless tobacco: Never [...] for dysuria, flank pain and hematuria. Musculoskeletal: Positive for arthralgias (left foot/calf). Negative for back pain, myalgias and neck pain. Skin: Negative for color change, rash and wound. Allergic/Immunologic: Negative for immunocompromised state. Neurological: Negative for dizziness, speech difficulty, weakness, light- headedness, numbness and headaches. Hematological: Negative for adenopathy. Psychiatric/Behavioral: Negative. Physical Exam Filed Vitals: 03/14/19 1813 03/14/19 1947 BP: (!) 170/106 95/69 Pulse: 90 77 Resp: 18 20 Temp: 98 ??F (36.7 ??C) TempSrc: Oral SpO2: 100% 100% Weight: 132.5 kg (292 lb) Height: 5' 1 (1.549 m) Physical Exam Constitutional: She is oriented to person, place, and time. She appears well- developed and well-nourished. No distress. HENT: Head: Normocephalic and atraumatic. Nose: Nose normal. Mouth/Throat: Oropharynx is clear and moist. Eyes: Conjunctivae and EOM are normal. Pupils are equal, round, and reactive to light. Neck: Normal range of motion. Neck supple. No tracheal deviation present. No thyromegaly present. Cardiovascular: Normal rate, regular rhythm, normal heart sounds and intact distal pulses. Pulmonary/Chest: Effort normal and breath sounds normal. No respiratory distress. Abdominal: Soft. Bowel sounds are normal. She exhibits no distension and no mass. There is no tenderness. There is no rebound and no guarding. No hernia. Musculoskeletal: Normal range of motion. She exhibits tenderness (left lateral foot and left medialgastroc. No significant edema noted. No cords noted. No deformity). She exhibits no edema or deformity. Lymphadenopathy: She has no cervical adenopathy. Neurological: [...] or performed during the hospital encounter of 03/14/19 ECG 12 lead Narr[address] Test Date: 2019-03-14 Pat Name: MOHSEN MARQUES Department: Room: [facility] Gender: Female Electrician Research: OLLIE : 1955 Requested By: BRIA BELCHER Order Number: [id number] Reading MD: Justen Chaudhari Measurements Intervals [place] Rate: 83 P: 49 [place]: 130 QRS: 20 QRSD: 82 T: 52 QT: 361 QTc: 425 Interpretive Statements SINUS RHYTHM Compared to ECG 08/31/2018 00:25:51 No significant changes PROJECT MANAGER EKG interpreted by myself: Sinus rhythm, 83 bpm, no ischemic changes. No changes from old EKG LABORATORY STUDIES: Results for orders placed or performed during the hospital encounter of 03/14/19 CBC W/DIFF AUTOMATED Result Value Ref Range WBC 11.2 (H) 4.5 - 11.0 x10'3/uL RBC 4.64 4.20 - 5.40 x10'6/uL HGB 13.2 12.0 - 16.0 G/DL HCT 42.9 38.0 - 48.0 % MCV 92.5 81.0 - 99.0 FL MCH 28.4 27.0 - 31.0 PG MCHC 30.8 (L) 32.0 - 36.0 G/DL RDW 14.0 11.5 - 14.5 % PLT 330 130 - 400 x10'3/uL MPV 10.0 9.3 - 12.2 FL DIFFERENTIAL TYPE AUTOMATED DIFFERENTIAL NEUTROPHILS 63.4 % LYMPHOCYTES 25.6 % MONOCYTES 7.6 % EOSINOPHILS 2.7 % BASOPHILS 0.3 % IMMATURE GRANS 0.4 % ABS. NEUTROPHILS TOTAL 7.11 1.80 - 7.70 x10'3/uL ABS. LYMPHOCYTES 2.87 1.00 - 4.80 x10'3/uL ABS. MONOCYTES 0.85 0.24 - 0.86 x10'3/uL ABS. EOSINOPHILS 0.30 0.04 - 0.36 x10'3/uL ABS. BASOPHILS 0.03 0.01 - 0.08 x10'3/uL ABS. IMMATURE GRANULOCYTES 0.04 0.00 - 0.49 x10'3/uL COMPREHENSIVE METABOLIC PANEL Result Value Ref Range GLUCOSE 216 (H) 70 - 99 MG/DL BUN 17 7 - 18 MG/DL CREATININE 1.11 (H) 0.55 - 1.02 MG/DL SODIUM 139 136 - 145 MMOL/L POTASSIUM 5.6 (H) 3.5 - 5.1 MMOL/L CHLORIDE 105 100 - 108 MMOL/L CO2 30.1 21 - 32 MMOL/L CALCIUM 9.7 8.5 - 10.1 MG/DL TOTAL BILIRUBIN 0.5 0.2 - 1.2 MG/DL TOTAL PROTEIN 8.7 (H) 6.4 - 8.2 G/DL ALBUMIN 3.5 3.4 - 5.0 G/DL AST 23 15 - 37 U/L ALT 26 14 - 55 U/L ALK PHOS 103 50 - 136 U/L ANION GAP 3.9 (L) 5 - 15 MMOL/L BUN CREATININE RATIO 15.3 6 - 26 A/G RATIO 0.7 (L) 1.0 - 2.0 RATIO eGFR Non-Afr. Amer. 53 (L) >90 ML/MIN/1.73 M2 eGFR Afr. Amer. 62 (L) >90 ML/MIN/1.73 M2 TROPONIN, QUANT Result Value Ref Range TROPONIN I <0.015 <0.045 ng/mL. D-DIMER, QUANTITATIVE Result Value Ref Range D-DIMER <150 0 - 230 D DU ng/mL PARTIAL THROMBOPLASTIN TIME,PTT Result Value Ref Range PTT 40.2 (H) 25.5 - 37.6 SEC PROTIME/INR, VENOUS Result Value Ref Range Protime 16.6 (H) 9.6 - 12.2 SEC INR 1.5 TROPONIN, QUANT Result Value Ref Range TROPONIN I <0.015 <0.045 ng/mL. IMAGING STUDIES CTA CHEST Final Result by User, [id number] (03/14 2057) CTA CHEST: 03/14/2019 8:24 PM CLINICAL INDICATION:: Chest pain, acute, PE suspected, high pretest prob acute chest pain. COMPARISON: 08/20/2017. TECHNIQUE: Computed tomography of the chest, after the administration of 100mL Isovue-370 contrast according to pulmonary embolism protocol without immediate complication. A dose lowering technique was used for this procedure, which may include, but is not limited to, dose reduction technique, automated exposure control, the use of iterative reconstruction, and ALARA (As Low As Reasonably Achievable) / Image Gently techniques. Additional Maximum Intensity reconstructions in multiple planes are reviewed and manipulated on an independent workstation. FINDINGS: Lung and Large Airways: 2.5 mm left lower lobe pulmonary nodule noted well-circumscribed. No follow-up recommended by Fleischner Society. No acute infiltrate. Pleura: No significant pleural effusion. No evidence of pneumothorax. Aorta: No evidence significant aortic dilatation. No evidence of aortic dissection. Pulmonary Arteries: Adequate opacification of the pulmonary arteries. No intraluminal filling defects. No CT evidence of acute pulmonary embolism.. Heart: normal size. No pericardial effusion. . Mediastinum and Korin: No suspicious hilar nor mediastinal lymphadenopathy. Chest Wall and Lower Neck: within normal limits. Upper Abdomen: Patient is status post cholecystectomy. Bones: There are degenerative changes in the dorsal spine. No evidence of any osseous destructive lesions. IMPRESSION: 1. No CT evidence of pulmonary embolism. 2. Sub-3 mm pulmonary nodule left lower lobe. Interpreted By: Lisa Menon MD, 03/14/2019 8:50 PM ED Course / Medical Decision Making MDM Number of Diagnoses or Management Options Amount and/or Complexity of Data Reviewed Clinical lab tests: ordered and reviewed Tests in the radiology section of CPT??: ordered and reviewed Tests in the medicine section of CPT??: ordered and reviewed Patient is in no acute distress or respiratory distress, vital signs stable, afebrile, no hypoxia or tachycardia. Extremity/orthopedic exam as mentioned. Distal neurovascular status intact. No signs of obvious DVT, no obvious unilateral leg edema or cords noted. No pertinent respiratory findings onexam. Lungs clear bilaterally. Regular rate and rhythm, normal S1 and S2. Labs unremarkable for acute concern. D-dimer negative. No indication for extremity ultrasound. Troponin unremarkable. No other pertinent laboratory findings of acute concern in conjunction with patient's H&P. Negative troponin study x2. CTA chest unremarkable for acute concern, including no pulmonary embolus. Patient has been given [place] for pain in the emergency room. Will discharge home. She has MRI of her foot scheduled for tomorrow. Medications hydrocodone-acetaminophen (NORCO) 5-325 MG tablet 2 tablet (2 tablets Oral Given 03/14/191919) iopamidol (ISOVUE-370) 76 % injection 100 mL (100 mLs Intravenous Given 03/14/192033) hydrocodone-acetaminophen (NORCO) 5-325 MG tablet 1 tablet (1 tablet Oral Given 03/14/192136) Clinical Impression Left foot pain (Primary) Current Discharge Medication List Disposition: Discharge Follow-Up: Justen Gale MD #[address] [address] In 3 days NAYELI WHITE PA-C 03/14/2019 Nayeli White PA-C 03/14/192218 Nayeli White PA-C 05/10/19 0121 Cosigned by Jaswinder Gaytan MD at 05/10/2019 1:36 AM HVAC PROJECT MANAGER PROJECT MANAGER PROJECT MANAGER PROJECT MANAGER PROJECT MANAGER * HUMAIRA Ordaz - 03/14/2019 6:53 PM CST [place], [place] EMERGENCY DEPARTMENT ENCOUNTER Medical Screening Examination 03/14/19 6:53 PM Chief Complaint : Foot Pain HPI : Moshen Marques is a 63-year-old female who presents to the ER with c/o worsening left foot/leg pain that began last night. Pt reports intermittent chest pain and SOb. Pt has a history of DVTs/PEs and is on Xarelto. She reports she has been more immobile due to the walking boot and pain. Ptdenies any new injury to her left foot/ankle yesterday. No LMP recorded. Patient is postmenopausal. Vital Signs: Filed Vitals: 03/14/193 BP: (!) 170/106 Pulse: 90 Resp: 18 Temp: 98 ??F (36.7 ??C) TempSrc: Oral SpO2: 100% Weight: 132.5 kg (292 lb) Height: 5' 1 (1.549 m) Physical exam: A brief physical exam was completed to facilitate/expedite patient care. Generalizedpain with palpation of the left calf. Plan: Necessary labs/imaging/medications ordered to initiate pt care. Please excuse any grammatical or spelling errors as this chart was documented using Godengo, a dictation software. HUMAIRA Ordaz 03/14/19 190 Cosigned by Giuseppe Ramirez MD at 03/15/2019 7:02 AM HVAC PROJECT MANAGER PROJECT MANAGER PROJECT MANAGER * Delio Bender RN - 03/14/2019 6:18 PM CST Patient reports increased pain to left foot, ongoing. Reports pain as sharp and shoot, radiates up to thigh. Is scheduled to have MRI tomorrow of left foot. Has walking boot on. PROJECT MANAGER documented in this encounter Plan of Treatment Not on file documented as of this encounter Procedures Procedure Name Priority Date/Time Associated Diagnosis Comments TROPONIN, QUANT STAT 03/14/2019 9:18 PM HVAC PROJECT MANAGER CTA CHEST STAT 03/14/2019 8:34 PM HVAC PROJECT MANAGER PARTIAL THROMBOPLASTIN TIME,PTT STAT 03/14/2019 7:21 PM HVAC PROJECT MANAGER PROTHROMBIN TIME, VENOUS STAT 03/14/2019 7:21 PM HVAC PROJECT MANAGER COMPREHENSIVE METABOLIC PANEL STAT 03/14/2019 7:21 PM HVAC PROJECT MANAGER D-DIMER, QUANTITATIVE STAT 03/14/2019 7:21 PM HVAC PROJECT MANAGER CBC W/DIFF AUTOMATED STAT 03/14/2019 7:21 PM HVAC PROJECT MANAGER TROPONIN, QUANT STAT 03/14/2019 7:21 PM HVAC PROJECT MANAGER ECG 12-LEAD Routine 03/14/2019 7:17 PM HVAC PROJECT MANAGER documented in this encounter Results * TROPONIN, QUANT (03/14/2019 9:18 PM HVAC PROJECT MANAGER) TROPONIN I <0.015 <0.045 ng/mL. 03/14/2019 9:55 PM HVAC PROJECT MANAGER [facility] Comment: HIGH DOSES OF BIOTIN MAY INTERFERE WITH THIS TEST RESULT. CORRELATION TO CLINICAL HISTORY AND PRESENTATION RECOMMENDED. 03/14/2019 9:18 PM HVAC PROJECT MANAGER us Nayeli White PA-C LABORATORY Final Resul t [facility] [address] [place] [address], [place] [phone] * CTA CHEST (03/14/2019 8:34 PM HVAC PROJECT MANAGER) Anatomical Region Laterality Modality Chest Computed Tomogra phy 03/14/2019 8:50 PM HVAC PROJECT MANAGER Impressions 03/14/2019 8:55 PM HVAC PROJECT MANAGER IMPRESSION: 1. ??No CT evidence of pulmonary embolism. 2. ??Sub-3 mm pulmonary nodule left lower lobe. Interpreted By: Lisa Menon MD, 03/14/2019 8:50 PM Narrative 03/14/2019 8:55 PM HVAC PROJECT MANAGER CTA CHEST: 03/14/2019 8:24 PM CLINICAL INDICATION:: Chest pain, acute, PE suspected, high pretest prob acute chest pain. COMPARISON: 08/20/2017. TECHNIQUE: Computed tomography of the chest, after the administration of 100mL Isovue-370 contrast according to pulmonary embolism protocol without immediate complication. A dose lowering technique was used for this procedure, which may include, but is not limited to, dose reduction technique, automated exposure control, the use of iterative reconstruction, and ALARA (As Low As Reasonably Achievable) / Image Gently techniques. Additional Maximum Intensity reconstructions in multiple planes are reviewed and manipulated on an independent workstation. FINDINGS: Lung and Large Airways: 2.5 mm left lower lobe pulmonary nodule noted well-circumscribed. ??No follow-up recommended by Fleischner Society. ??No acute infiltrate. Pleura: No significant pleural effusion. No evidence of pneumothorax. Aorta: ??No evidence significant aortic dilatation. ??No evidence of aortic dissection. Pulmonary Arteries: Adequate opacification of the pulmonary arteries. ??No intraluminal filling defects. ??No CT evidence of acute pulmonary embolism.. Heart: normal size. No pericardial effusion. . Mediastinum and Korin: No suspicious hilar nor mediastinal lymphadenopathy. Chest Wall and Lower Neck: within normal limits. Upper Abdomen: Patient is status post cholecystectomy. Bones: There are degenerative changes in the dorsal spine. ??No evidence of any osseous destructive lesions. Procedure Note Lisa Menon MD - 03/14/2019 CTA CHEST: 03/14/2019 8:24 PM CLINICAL INDICATION:: Chest pain, acute, PE suspected, high pretest probacute chest pain. COMPARISON: 08/20/2017. TECHNIQUE: Computed tomography of the chest, after the administration [id number] Isovue-370 contrast according to pulmonary embolism protocol withoutimmediate complication. A dose lowering technique was used for thisprocedure, which may include, but is not limited to, dose reductiontechnique, automated exposure control, the use of iterativereconstruction, and ALARA (As Low As Reasonably Achievable) / Image Gentlytechniques. Additional Maximum Intensity reconstructions in multipleplanes are reviewed and manipulated on an independent workstation. FINDINGS: Lung and Large Airways: 2.5 mm left lower lobe pulmonary nodule notedwell-circumscribed. No follow-up recommended by Fleischner Society. Noacute infiltrate. Pleura: No significant pleural effusion. No evidence of pneumothorax. Aorta: No evidence significant aortic dilatation. No evidence of aorticdissection. Pulmonary Arteries: Adequate opacification of the pulmonary arteries. Nointraluminal filling defects. No CT evidence of acute pulmonaryembolism.. Heart: normal size. No pericardial effusion. . Mediastinum and Korin: No suspicious hilar nor mediastinallymphadenopathy. Chest Wall and Lower Neck: within normal limits. Upper Abdomen: Patient is status post cholecystectomy. Bones: There are degenerative changes in the dorsal spine. No evidence ofany osseous destructive lesions. IMPRESSION: 1. No CT evidence of pulmonary embolism. 2. Sub-3 mm pulmonary nodule left lower lobe. Interpreted By: Lisa Menon MD, 03/14/2019 8:50 PM Bria Belcher CHUTE TENDER-BC CT Final Res ult * (ABNORMAL) PROTIME/INR, VENOUS (03/14/2019 7:21 PM HVAC PROJECT MANAGER) PROTIME 16.6(H) 9.6 - 12.2 SEC 03/14/2019 8:21 PM HVAC PROJECT MANAGER [facility] INR 1.5 03/14/2019 8:21 PM HVAC PROJECT MANAGER [facility] Comment: Recommended INR Therapeutic Goals: ??2.0-3.0 Routine Therapy ??2.5-3.5 Mechanical Prosthetic Valves (High Risk) ??3.0-4.0 Acute MA (to prevent Systemic Embolism) The INR is used only for patients on stable oral anticoagulant therapy. It makes no significant contribution to the diagnosis or treatment of patients whose Protime is prolonged for other reasons. 03/14/2019 7:21 PM HVAC PROJECT MANAGER [facility]AT[facility] Final Res ult Performing Organization Address City/[facility]/ZIP Co de Phone Number [facility] [address] [place] [address], [place] [phone] * (ABNORMAL) PARTIAL THROMBOPLASTIN TIME,PTT (03/14/2019 7:21 PM HVAC PROJECT MANAGER) PTT 40.2(H) 25.5 - 37.6 SEC 03/14/2019 8:21 PM HVAC PROJECT MANAGER [facility] 03/14/2019 7:21 PM HVAC PROJECT MANAGER [facility] LABORATORY Final Res ult Performing Organization Address [facility] Co de Phone Number [facility] [address] [place] [address], [place] [phone] * D-DIMER, QUANTITATIVE (03/14/2019 7:21 PM HVAC PROJECT MANAGER) D-DIMER <150 0 - 230 D DU ng/mL 03/14/2019 8:21 PM HVAC PROJECT MANAGER [facility] Comment: TESTING PERFORMED ON [place] ACL TOP 300 ANALYZER. NOTE: RESULTS OF THIS TEST SHOULD ALWAYS BE INTERPRETED IN CONJUNCTION WITH THE PATIENT'S MEDICAL HISTORY, CLINICAL PRESENTATION AND OTHER FINDINGS. CLINICAL DIAGNOSIS SHOULD NOT BE BASED ON THE RESULT OF D-DIMER ALONE. THE MEASUREMENT OF D-DIMER SHOULD NOT BE USED AN AID IN THE DIAGNOSIS OF VTE IN PATIENTS WITH: THERAPEUTIC DOSE ANTICOAGULANT THERAPY FOR >24HRS, FIBRINOLYTIC THERAPY WITHIN PREVIOUS 7 DAYS, TRAUMA OR SURGERY WITHIN PREVIOUS 4 WEEKS, DISSEMINATED MALIGNANCIES, AORTIC ANEURYSM, SEPSIS, SEVERE INFECTIONS, PNEUMONIA, SEVERE SKIN INFECTIONS, LIVER CIRRHOSIS OR . 03/14/2019 7:21 PM HVAC PROJECT MANAGER [facility] Kathy [facility] LABORATORY Final Res ult [facility] [address] [place] [address], [place] [phone] * TROPONIN, QUANT (03/14/2019 7:21 PM HVAC PROJECT MANAGER) TROPONIN I <0.015 <0.045 ng/mL. 03/14/2019 8:06 PM HVAC PROJECT MANAGER [facility] Comment: HIGH DOSES OF BIOTIN MAY INTERFERE WITH THIS TEST RESULT. CORRELATION TO CLINICAL HISTORY AND PRESENTATION RECOMMENDED. 03/14/2019 7:21 PM HVAC PROJECT MANAGER [facility] LABORATORY Final Res ult Performing Organization Address City/[facility]/ZIP Co de Phone Number [facility] [address] [place] [address], [place] [phone] * (ABNORMAL) COMPREHENSIVE METABOLIC PANEL (03/14/2019 7:21 PM HVAC PROJECT MANAGER) GLUCOSE 216(H) 70 - 99 MG/DL 03/14/2019 8:06 PM [facility] BUN 17 7 - 18 MG/DL 03/14/2019 8:06 PM [facility] CREATININE S/P/B 1.11(H) 0.55 - 1.02 MG/DL 03/14/2019 8:06 PM [facility] SODIUM S/P/B 139 136 - 145 MMOL/L 03/14/2019 8:06 PM [facility] POTASSIUM S/P/B 5.6(H) 3.5 - 5.1 MMOL/L 03/14/2019 8:06 PM [facility] CHLORIDE S/P/B 105 100 - 108 MMOL/L 03/14/2019 8:06 PM [facility] CO2 30.1 21 - 32 MMOL/L 03/14/2019 8:06 PM [facility] CALCIUM S/P/B 9.7 8.5 - 10.1 MG/DL 03/14/2019 8:06 PM [facility] BILIRUBIN TOTAL S/P/B 0.5 0.2 - 1.2 MG/DL 03/14/2019 8:06 PM [facility] TOTAL PROTEIN S/P/B 8.7(H) 6.4 - 8.2 G/DL 03/14/2019 8:06 PM [facility] ALBUMIN S/P/B 3.5 3.4 - 5.0 G/DL 03/14/2019 8:06 PM [facility] AST 23 15 - 37 U/L 03/14/2019 8:06 PM [facility] ALT 26 14 - 55 U/L 03/14/2019 8:06 PM [facility] ALKALINE PHOSPHATASE S/P/B 103 50 - 136 U/L 03/14/2019 8:06 PM [facility] ANION GAP 3.9(L) 5 - 15 MMOL/L 03/14/2019 8:06 PM [facility] BUN CREATININE RATIO 15.3 6 - 26 03/14/2019 8:06 PM [facility] A/G RATIO 0.7(L) 1.0 - 2.0 RATIO 03/14/2019 8:06 PM [facility] EGFR NON-AFR. AMER. 53(L) >90 ML/MIN/1.7 3 M2 03/14/2019 8:06 PM [facility] EGFR AFR. AMER. 62(L) >90 ML/MIN/1.7 3 M2 03/14/2019 8:06 PM [facility] Comment: NOTE: eGFR is not calculated for patients <18 years of age. This is an estimated GFR (CKD EPI) and should not be used for calculating drug doses. 03/14/2019 7:21 PM HVAC PROJECT MANAGER Bria Belcher CHUTE TENDER-BC LABORATORY Final Res ult [facility] [address] [place] [address], [place] [phone] * (ABNORMAL) CBC W/DIFF AUTOMATED (03/14/2019 7:21 PM HVAC PROJECT MANAGER) WBC 11.2(H) 4.5 - 11.0 x10'3/uL 03/14/2019 7:45 PM [facility] RBC 4.64 4.20 - 5.40 x10'6/uL 03/14/2019 7:45 PM [facility] HGB 13.2 12.0 - 16.0 G/DL 03/14/2019 7:45 PM [facility] HCT 42.9 38.0 - 48.0 % 03/14/2019 7:45 PM [facility] MCV 92.5 81.0 - 99.0 FL 03/14/2019 7:45 PM [facility] MCH 28.4 27.0 - 31.0 PG 03/14/2019 7:45 PM [facility] MCHC 30.8(L) 32.0 - 36.0 G/DL 03/14/2019 7:45 PM [facility] RDW 14.0 11.5 - 14.5 % 03/14/2019 7:45 PM [facility] PLT 330 130 - 400 x10'3/uL 03/14/2019 7:45 PM [facility] MPV 10.0 9.3 - 12.2 FL 03/14/2019 7:45 PM [facility] DIFFERENTIAL TYPE AUTOMATED DIFFERENTIAL 03/14/2019 7:45 PM [facility] NEUTROPHILS % 63.4 % 03/14/2019 7:45 PM [facility] LYMPHOCYTES % 25.6 % 03/14/2019 7:45 PM [facility] MONOCYTES % 7.6 % 03/14/2019 7:45 PM [facility] EOSINOPHILS 2.7 % 03/14/2019 7:45 PM [facility] BASOPHILS 0.3 % 03/14/2019 7:45 PM [facility] IMMATURE GRANS % 0.4 % 03/14/20 19 7:45 PM [facility] ABS. NEUTROPHILS TOTAL 7.11 1.80 - 7.70 x10'3/uL 03/14/2019 7:45 PM [facility] ABS. LYMPHOCYTES 2.87 1.00 - 4.80 x10'3/uL 03/14/2019 7:45 PM [facility] ABS. MONOCYTES 0.85 0.24 - 0.86 x10'3/uL 03/14/2019 7:45 PM [facility] ABS. EOSINOPHILS 0.30 0.04 - 0.36 x10'3/uL 03/14/2019 7:45 PM [facility] ABS. BASOPHILS 0.03 0.01 - 0.08 x10'3/uL 03/14/2019 7:45 PM [facility] ABS. IMMATURE GRANULOCYTES 0.04 0.00 - 0.49 x10'3/uL 03/14/2019 7:45 PM [facility] 03/14/2019 7:21 PM HVAC PROJECT MANAGER us Bria Belcher CHUTE TENDER-BC LABORATORY Final Res ult [facility] [address] [place] [address], * ECG 12 lead (03/14/2019 7:17 PM HVAC PROJECT MANAGER) 03/14/2019 7:17 PM HVAC PROJECT MANAGER Narrative [facility] - 03/14/2019 9:28 PM HVAC PROJECT MANAGER ?[facility] ? [address] [place] [place] ? Test Date: ?2019-03-14 Pat Name: ? MOHSEN MARQUES ?Department: ? Room: ? EXAM01 Gender: ? Female ? Electrician Research: ?? SK : ?1955 ? Requested By: BRIA BELCHER Order Number: [id number] ? Reading : ?? Justen Chaudhari ? Measurements Intervals ?[place] ? Rate: ? 83 ? P: ?49 [place]: ? 130 ?QRS: ?20 QRSD: ? 82 ? T: ?52 QT: ? 361 ? QTc: ?425 ? Interpretive Statements SINUS RHYTHM Compared to ECG 08/31/2018 00:25:51 No significant changes PROJECT MANAGER Procedure Note Justen Chaudhari MD - 03/14/[address] [facility] [address] [facility] Test Date: 2019-03-14 Pat Name: MOHSEN MARQUES Department: Room: [facility] Gender: Female Electrician Research: OLLIE : 1955 Requested By: BRIA BELCHER Order Number: [id number] Felipe MD: Justen Chaudhari Measurements Intervals [place] Rate: 83 P: 49 [place]: 130 QRS: 20 QRSD: 82 T: 52 QT: 361 QTc: 425 Interpretive Statements SINUS RHYTHM Compared to ECG 08/31/2018 00:25:51 No significant changes PROJECT MANAGER us Bria Belcher CHUTE TENDER-BC ECG ORDERABLES Final Res ult [facility] DARIUS documented in this encounter Visit Diagnoses Diagnosis Left foot pain- Primary Pain in limb documented in this encounter Administered Medications Inactive Administered Medications - up to 3 most recent administrations Medication Order MAR Action Action Date Dose Rate Site hydrocodone-acetaminophen (NORCO) 5-325 MG tablet 1 tablet 1 tablet, Oral, Once, 1 dose, On Valeri 03/14/19 at 2130, Maximum dose of acetaminophen is 4000 mg from all sources in 24 hours. Given 03/14/2019 9:37 PM HVAC PROJECT MANAGER 1 tablet hydrocodone-acetaminophen (NORCO) 5-325 MG tablet 2 tablet 2 tablet, Oral, Once, 1 dose, On Valeri 03/14/19 at 1915, Maximum dose of acetaminophen is 4000 mg from all sources in 24 hours. Given 03/14/2019 7:20 PM HVAC PROJECT MANAGER 2 tablets iopamidol (ISOVUE-370) 76 % injection 100 mL 100 mL, Intravenous, IMG once as needed, Contrast, 1 dose, Starting on Valeri 03/14/19 at 203, Until Valeri 03/14/19 at 2033 Given 03/14/2019 8:34 PM HVAC PROJECT MANAGER 100 mLs Right Arm documented in this encounter Active and Recently Administered Medications Times are shown in HVAC PROJECT MANAGER. Scheduled Medication Order 03/12/2019 03/13/2019 03/14/2019 hydrocodone-acetaminophen (NORCO) 5-325 MG tablet 1 tablet (COMPLETED) 1 tablet, Oral, Once, 1 dose, On Valeri 03/14/19 at 2130, Maximum dose of acetaminophen is 4000 mg from all sources in 24 hours. 2136 (Given - Provid er: Kimberly Pineda RN) hydrocodone-acetaminophen (NORCO) 5-325 MG tablet 2 tablet (COMPLETED) 2 tablet, Oral, Once, 1 dose, On Valeri 03/14/19 at 1915, Maximum dose of acetaminophen is 4000 mg from all sources in 24 hours. 1919 (Given - Provid er: Jamila Gibson RN) PRN Medication Order 03/12/2019 03/13/2019 03/14/2019 iopamidol (ISOVUE-370) 76 % injection 100 mL (COMPLETED) 100 mL, Intravenous, IMG once as needed, Contrast, 1 dose, Starting on Valeri 03/14/19 at 2033, Until Valeri 03/14/19 at 2033 2033 (Given - Provid er: Edwin Orr, RTR) documented in this encounter Additional Health Concerns Infection Onset Date Last Indicated Resolved Time MRSA Comment:MRSA nares pos. 02/201808/31/2018 08/31/2018 07/02/19 2:54 AM HVAC PROJECT MANAGER documented as of this encounter Care Teams Welding Production Supervisor Relationship Specialty Start Date End Date Justen Gale MD [address] [address] PCP - General FAMILY PRACTICE 08/20/17 Meena Bansal MD [address] [address] [place] [employer] Studies Professor CARDIOVASCULAR DISEASE 04/24/16 documented as of this encounter
--- OUTSIDE RECORDS SUMMARY | 2024-04-26 02:41 | XMS_ITS | Encounter Summary ---
Author Organization [facility] Address [address] [place] [address]. 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 Last Filed Vital Signs Vital Sign Reading Time Taken Comments Blood Pressure 110/87 12/16/2018 2:15 PM CDT Pulse 79 12/16/2018 2:00 PM CDT Temperature 37 ??C (98.6 ??F) 12/16/2018 9:38 AM CDT Respiratory Rate 18 12/16/2018 2:15 PM CDT Oxygen Saturation 97% 12/16/2018 2:15 PM CDT Inhaled Oxygen Concentration - - Weight 133.4 kg (294 lb) 12/16/2018 9:38 AM CDT Height 154.9 cm (5' 1 ) 12/16/2018 9:38 AM CDT Body Mass Index 55.55 12/16/2018 9:38 AM CDT documented in this encounter Functional [...] this encounter Discharge Instructions * Discharge Instructions* Jayro Cervantes MD - 12/16/2018 2:04 PM CDT Continue all present medication as prescribed. Take hydrocodone as prescribed. Hydrocodone may cause drowsiness constipation. Ice alternate with moist heat to areas of pain. Keep your appointment with your pain management physician on Tuesday, December 18, 2018. Return to ER for problems concerns. * Attachments The following attachments cannot be sent through Care Everywhere. * Radiculopathy Discharge Instructions (Somali) documented in this encounter Medications at Time [...] 30 tablet 9 12/21/19 19 hydrocodone-acetam inophen 5-325 MG tablet Take 1-2 [...] as of this encounter ED Notes * Yady Castro RN - 12/16/2018 12:05 PM CDT * Jayro Cervantes MD - 12/16/2018 10:[address] [facility] Emergency Department Note Chief Complaint Chief Complaint Patient presents with ??? Back Pain History of Present Illness 63-year-old obese white female presents ER complaining of increasing back pain since . She saw her pain management physician on , December 13, 2018. Patient has now developed right leg radiculopathy. No weakness. Also complains of frequent urination no bowel or bladder dysfunction. Noincontinence or retention. Patient has frequent UTIs. Also complains of midline lower abdominal pain. No fevers or chills. No chest pain palpitation. Slight cough. No shortness of breath. Patient primary care provider is Dr. Gale in [facility]. Patient is allergies to cephalosporins oxycodoneAtivan. Medications are filled at [facility] in [place] include insulin lisinopril. Surgeries inc lude hernia repair bilateral mastectomy cholecystectomy right knee surgery. Patient does not smoke appears not drink alcohol. Patient lives with her 39 years. Patient does not work outside the home. Family history of diabetes heart disease cancer Medical History ALLERGIES: Allergies Allergen Reactions ??? Ativan [Lorazepam] Hyperactive Aggrevates restless leg syndrome ??? Cephalosporins Anaphylaxis ??? Rocephin [Ceftriaxone] Shortness of Breath ??? Levofloxacin Hives ??? Oxycodone Vomiting ??? Reglan [Metoclopramide] Hyperactive ??? Trazodone Other (see comment) Shaky, restlessness, itching, throat swelling MEDICATIONS: Prior to Admission medications Medication Sig Start Date End Date Taking? Authorizing Provider hydrocodone-acetaminophen 5-325 MG tablet Take 1-2 tablets by mouth every 6 (six) hours as needed for Pain. 12/16/18 Yes Jayro Cervantes MD amitriptyline 25 MG tablet Take 25 mg by mouth nightly at bedtime. Doc Abstract cyclobenzaprine 10 MG tablet Take 1 tablet (10 mg total) by mouth 3 (three) times daily as needed for Muscle Spasms. 12/10/18 12/20/18 Corby Toledo MD exemestane 25 MG tablet Take 25 [...] 1 unit for every 15 mg/dl >140 lidocaine 5 % Place 1 patch onto the skin daily for 30 days. Remove & Discard patch within 12 hours or as directed by 12/10/18 01/09/19 Corby Toledo MD lisinopril 20 MG tablet Take 20 mg [...] for chills and fever. HENT: Negative for congestion, rhinorrhea and sore throat. Eyes: Negative for photophobia. Respiratory: Negative for cough, shortness of breath and wheezing. Cardiovascular: Negative for chest pain, palpitations and leg swelling. Gastrointestinal: Negative for abdominal pain, constipation, diarrhea, nausea and vomiting. Endocrine: Negative for polydipsia and polyuria. Genitourinary: Positive for dysuria. Negative for flank pain and frequency. Musculoskeletal: Positive for back pain. Negative for neck pain and neck stiffness. Chronic low back pain. Now pain right buttocks and right leg Skin: Negative for pallor and rash. Allergic/Immunologic: Negative for immunocompromised state. Neurological: Negative for syncope, weakness, light-headedness, numbness and headaches. Hematological: Does not bruise/bleed easily. Psychiatric/Behavioral: Negative for suicidal ideas. Physical Exam Filed Vitals: 12/16/18 1127 12/16/18 1130 12/16/18 1356 12/16/18 1400 BP: 104/69 109/64 109/66 Pulse: Resp: 18 Temp: TempSrc: SpO2: 100% 100% 97% 96% Weight: Height: Physical Exam Constitutional: She is oriented to person, place, and time. She appears well- developed and well-nourished. No distress. HENT: Head: Normocephalic and atraumatic. Right Ear: External ear normal. Left Ear: External ear normal. Eyes: Conjunctivae and EOM are normal. Pupils are equal, round, and reactive to light. No scleral icterus. Neck: Normal range of motion. Neck supple. No JVD present. Cardiovascular: Normal rate, regular rhythm, normal heart sounds and intact distal pulses. Exam reveals no gallop and no friction rub. No murmur heard. Pulmonary/Chest: Effort normal and breath sounds normal. No stridor. No respiratory distress. She has no wheezes. She has no rales. She exhibits no tenderness. Abdominal: Soft. Bowel sounds are normal. She exhibits no distension and no mass. There is tenderness. There is no rebound and no guarding. Mild tenderness midline lower abdomen. No CVA tenderness Genitourinary: Rectal exam shows guaiac negative stool. Genitourinary Comments: Good sphincter tone. No hemorrhoids. Hemoccult negative Musculoskeletal: Normal range of motion. She exhibits no edema, tenderness or deformity. Neurological: She is alert and oriented to person, place, and time. Right leg raise at approximately 20 degrees right lower extremity. Plantar flexions equal bilaterally. Skin: Skin is warm and dry. No rash noted. Psychiatric: She has a normal mood and affect. Her behavior is normal. Judgment and thought contentnormal. Nursing note and vitals reviewed. Diagnostic Studies / Procedures ELECTROCARDIOGRAMS: No results found for this visit on 12/16/18. LABORATORY STUDIES: Results for orders placed or performed during the hospital encounter of 12/16/18 CBC W/DIFF AUTOMATED Result Value Ref Range WBC 9.2 4.5 - 11.0 x10'3/uL RBC 4.64 4.20 - 5.40 x10'6/uL HGB 13.1 12.0 - 16.0 G/DL HCT 41.4 38.0 - 48.0 % MCV 89.2 80.0 - 94.0 FL MCH 28.2 27.0 - 31.0 PG MCHC 31.6 (L) 32.0 - 36.0 G/DL RDW 15.3 (H) 11.5 - 14.5 % PLT 346 130 - 400 x10'3/uL MPV 10.1 9.3 - 12.2 FL DIFFERENTIAL TYPE AUTOMATED DIFFERENTIAL NEUTROPHILS 69.1 % LYMPHOCYTES 21.0 % MONOCYTES 7.0 % EOSINOPHILS 2.3 % BASOPHILS 0.2 % IMMATURE GRANS 0.4 % ABS. NEUTROPHILS TOTAL 6.36 1.80 - 7.70 x10'3/uL ABS. LYMPHOCYTES 1.94 1.00 - 4.80 x10'3/uL ABS. MONOCYTES 0.65 0.24 - 0.86 x10'3/uL ABS. EOSINOPHILS 0.21 0.04 - 0.36 x10'3/uL ABS. BASOPHILS 0.02 0.01 - 0.08 x10'3/uL ABS. IMMATURE GRANULOCYTES 0.04 0.00 - 0.49 x10'3/uL COMPREHENSIVE METABOLIC PANEL Result Value Ref Range GLUCOSE 162 (H) 70 - 99 MG/DL BUN 16 7 - 18 MG/DL CREATININE 0.87 0.55 - 1.02 MG/DL SODIUM 137 136 - 145 MMOL/L POTASSIUM 4.4 3.5 - 5.1 MMOL/L CHLORIDE 103 100 - 108 MMOL/L CO2 27.6 21 - 32 MMOL/L CALCIUM 9.4 8.5 - 10.1 MG/DL TOTAL BILIRUBIN 0.7 0.2 - 1.2 MG/DL TOTAL PROTEIN 8.6 (H) 6.4 - 8.2 G/DL ALBUMIN 3.5 3.4 - 5.0 G/DL AST 20 15 - 37 U/L ALT 24 14 - 55 U/L ALK PHOS 112 50 - 136 U/L ANION GAP 6.4 5 - 15 MMOL/L BUN CREATININE RATIO 18.3 6 - 26 A/G RATIO 0.7 (L) 1.0 - 2.0 RATIO eGFR Non-Afr. Amer. 71 (L) >90 ML/MIN/1.73 M2 eGFR Afr. Amer. 83 (L) >90 ML/MIN/1.73 M2 LACTIC ACID Result Value Ref Range LACTIC ACID 1.3 0.4 - 2.0 MMOL/L LACTIC ACID Result Value Ref Range LACTIC ACID 1.0 0.4 - 2.0 MMOL/L URINALYSIS Result Value Ref Range Specimen Type URINE CLEAN CATCH COLOR YELLOW TRANSPARENCY CLEAR Specific [place] (U) 1.016 1.001 - 1.030 U PH 5.0 5.0 - 9.0 LEUKOCYTE ESTERASE NEGATIVE NEGATIVE NITRITES NEGATIVE NEGATIVE PROTEIN, URINE NEGATIVE <30 MG/DL URINE GLUCOSE NEGATIVE NEGATIVE MG/DL U KETONES NEGATIVE NEGATIVE MG/DL UROBILINOGEN NEGATIVE NEGATIVE MG/DL Urine Bilirubin NEGATIVE NEGATIVE MG/DL BLOOD MODERATE (A) NEGATIVE CULTURE & SENSITIVITY INDICATED? CULTURE IS NOT INDICATED SQUAMOUS EPITHELIALS MODERATE /LPF MUCUS RARE /LPF WBC/HPF <1 <6 /HPF RBC/HPF <1 <6 /HPF CULTURE, BACTERIA, BLOOD Result Value Ref Range Spec. Description BLOOD Special Requests: NO SPECIAL REQUEST Culture Result: NO GROWTH <24 HRS CULTURE, BACTERIA, BLOOD Result Value Ref Range Spec. Description BLOOD Special Requests: NO SPECIAL REQUEST Culture Result: NO GROWTH <24 HRS IMAGING STUDIES XR LUMB SPINE 3V Final Result by User, [id number] (12/16 120) Examination: Lumbar Spine 3 views Exam Date/Time: 12/16/2018 11:30 AM Reason For Exam: Chronic low back pain. New radiculopathy right leg Back pain with with radiation to the right leg. Comparison: CT lumbar spine 12/09/2018 Technique: AP, lateral, and spot lumbosacral lateral views of the lumbar spine are obtained. Findings: Surgical clips in the gallbladder fossa. Multiple clips project over the lower pelvis and abdomen which are likely secondary to hernia mesh repair. The visualized bowel gas pattern is nonobstructive. Prominent bilateral sacroiliitis noted. Sacral struts intact. Lumbar vertebral body heights and alignment preserved. Multilevel facet disease. No convincing acute fracture or dislocation. No destructive osseous lesions. ===== IMPRESSION:===== 1. Lower lumbar facet disease and prominent bilateral sacroiliitis with no convincing acute osseous abnormality. If radicular symptoms persist, consider further evaluation with outpatient lumbar MRI Interpreted By: Jayro Cormier MD, 12/16/2018 12:05 PM XR CHEST PA+LAT Final Result by User, [id number] (12/16 1397) Examination: Chest x-ray 2 view Exam Date/Time: 12/16/2018 11:30 AM Reason For Exam: Cough Nausea, urinary frequency, cough Comparison: 08/30/2018 chest radiograph Technique: PA and lateral views of the chest were obtained. Findings: Heart size within normal limits. No large pleural effusion or pneumothorax. No convincing focal infiltrate or consolidation. Pulmonary vasculature upper limits normal but stable from prior study. Minimal peribronchial cuffing seen on lateral view. ======== IMPRESSION: ======== 1. Mild bronchitis with no other acute cardiopulmonary findings Interpreted By: Jayro Cormier MD, 12/16/2018 12:04 PM ED Course / Medical Decision Making MDM Number of Diagnoses or Management Options Diagnosis management comments: Differential diagnosis Back pain with right leg radiculopathy UTI Disc herniation Osteoarthritis Amount and/or Complexity of Data Reviewed Clinical lab tests: ordered and reviewed Tests in the radiology section of CPT??: ordered and reviewed ED Course as of Dec 16 140 Sun Dec 16, 2018 1400 Discussed all results with patient. Discussed treatment plan with increasing hydrocodone at this time. Patient is unable to take nonsteroidals since she is on blood thinners. She is presently taking Flexeril at bedtime. Stressed importance of continuing that and keeping her appointment on Monday, December 18, 2018 with pain management. Patient understands agrees with treatment plan. [CA] ED Course User Index [CA] Jayro Cervantes MD Medications HYDROmorphone (DILAUDID) injection 0.5 mg (not administered) HYDROmorphone (DILAUDID) injection 0.5 mg (0.5 mg Intravenous Given 12/16/18 1128) ondansetron (ZOFRAN) injection 4 mg (4 mg Intravenous Given 12/16/18 1154) Clinical Impression Lumbar back pain with radiculopathy affecting right lower extremity (Primary) Current Discharge Medication List START taking these medications Details hydrocodone-acetaminophen 5-325 MG tablet Take 1-2 tablets by mouth every 6 (six) hours as needed for Pain. Qty: 15 tablet, Refills: 0 Class: Print Pharmacy: [id number] [place], [place] - [address] [address] [facility] (Ph #: [phone]) Disposition: Discharge Follow-Up: Justen Gale MD [address] [address] In 3 days Jayro Cervantes MD 12/16/2018 Jayro Cervantes MD 12/16/18 [id number] * Sumaya Betts RN - 12/16/2018 9:43 AM CDT Pt ambulatory with use of walker. Pt reports back pain with radiation to right leg, sharp pain 10/31. Pt also concerned UTI returning. Pt also nauseated and states urinary frequency and urgency. documented in this encounter Plan of Treatment Not on file documented as of this encounter Procedures Procedure Name Priority Date/Time Associated Diagnosis Comments LACTIC ACID TIMED 12/16/2018 12:42 PM CDT XR LUMB SPINE 3V STAT 12/16/2018 11:5 6 AM CDT XR CHEST PA+LAT STAT 12/16/2018 11:56 AM CDT COMPREHENSIVE METABOLIC PANEL STAT 12/16/2018 11:15 AM CDT LACTIC ACID TIMED 12/16/2018 11:15 AM CDT CULTURE, BACTERIA, BLOOD STAT 12/16/2018 11:15 AM CDT CULTURE, BACTERIA, BLOOD STAT 12/16/2018 11:15 AM CDT CBC W/DIFF AUTOMATED STAT 12/16/2018 11:15 AM CDT URINALYSIS STAT 12/16/2018 11:04 AM CDT documented in this encounter Results * LACTIC ACID (12/16/2018 12:42 PM CDT) LACTIC ACID VENOUS 1.0 0.4 - 2.0 MMOL/L 12/16/2018 1:22 PM CDT [facility] 12/16/2018 12:4 2 PM CDT Jayro Cervantes MD LABORATORY Final Result [facility] [address] [place] [address], [place] [phone] * XR LUMB SPINE 3V (12/16/2018 11:56 AM CDT) Anatomical Region Laterality Modality Spine Radiographic Lizeth ging 12/16/2018 12:0 5 PM CDT Impressions 12/16/2018 12:07 PM CDT IMPRESSION:===== 1. ??Lower lumbar facet disease and prominent bilateral sacroiliitis with no convincing acute osseous abnormality. ??If radicular symptoms persist, consider further evaluation with outpatient lumbar MRI Interpreted By: Jayro Cormier MD, 12/16/2018 12:05 PM Narrative 12/16/2018 12:07 PM CDT Examination: Lumbar Spine 3 views Exam Date/Time: 12/16/2018 11:30 AM Reason For Exam: ??Chronic low back pain. ??New radiculopathy right leg ?? Back pain with with radiation to the right leg. Comparison: CT lumbar spine 12/09/2018 Technique: AP, lateral, and spot lumbosacral lateral views of the lumbar spine are obtained. Findings: Surgical clips in the gallbladder fossa. ??Multiple clips project over the lower pelvis and abdomen which are likely secondary to hernia mesh repair. ??The visualized bowel gas pattern is nonobstructive. ??Prominent bilateral sacroiliitis noted. ??Sacral struts intact. ??Lumbar vertebral body heights and alignment preserved. ??Multilevel facet disease. ??No convincing acute fracture or dislocation. ??No destructive osseous lesions. ===== Procedure Note Jayro Cormier MD - 12/16/2018 Examination: Lumbar Spine 3 views Exam Date/Time: 12/16/2018 11:30 AM Reason For Exam: Chronic low back pain. New radiculopathy right leg Back pain with with radiation to the right leg. Comparison: CT lumbar spine 12/09/2018 Technique: AP, lateral, and spot lumbosacral lateral views of the lumbarspine are obtained. Findings: Surgical clips in the gallbladder fossa. Multiple clips projectover the lower pelvis and abdomen which are likely secondary to herniamesh repair. The visualized bowel gas pattern is nonobstructive.Prominent bilateral sacroiliitis noted. Sacral struts intact. Lumbarvertebral body heights and alignment preserved. Multilevel facet disease.No convincing acute fracture or dislocation. No destructive osseouslesions. ===== IMPRESSION:===== 1. Lower lumbar facet disease and prominent bilateral sacroiliitis withno convincing acute osseous abnormality. If radicular symptoms persist,consider further evaluation with outpatient lumbar MRI Interpreted By: Jayro Cormier MD, 12/16/2018 12:05 PM Jayro Cervantes MD GENERAL IMAGING Final Result * XR CHEST PA+LAT (12/16/2018 11:56 AM CDT) Anatomical Region Laterality Modality Chest Radiographic Lizeth ging 12/16/2018 12:0 4 PM CDT Impressions 12/16/2018 12:05 PM CDT IMPRESSION: ======== 1. ??Mild bronchitis with no other acute cardiopulmonary findings Interpreted By: Jayro Cormier MD, 12/16/2018 12:04 PM Narrative 12/16/2018 12:05 PM CDT Examination: Chest x-ray 2 view Exam Date/Time: 12/16/2018 11:30 AM Reason For Exam: ??Cough ?? Nausea, urinary frequency, cough Comparison: 08/30/2018 chest radiograph Technique: PA and lateral views of the chest were obtained. Findings: Heart size within normal limits. ??No large pleural effusion or pneumothorax. ??No convincing focal infiltrate or consolidation. ??Pulmonary vasculature upper limits normal but stable from prior study. ??Minimal peribronchial cuffing seen on lateral view. ======== Procedure Note Jayro Cormier MD - 12/16/2018 Examination: Chest x-ray 2 view Exam Date/Time: 12/16/2018 11:30 AM Reason For Exam: Cough Nausea, urinary frequency, cough Comparison: 08/30/2018 chest radiograph Technique: PA and lateral views of the chest were obtained. Findings: Heart size within normal limits. No large pleural effusion orpneumothorax. No convincing focal infiltrate or consolidation. Pulmonaryvasculature upper limits normal but stable from prior study. Minimalperibronchial cuffing seen on lateral view. ======== IMPRESSION: ======== 1. Mild bronchitis with no other acute cardiopulmonary findings Interpreted By: Jayro Cormier MD, 12/16/2018 12:04 PM Jayro Cervantes MD GENERAL IMAGING Final Result * LACTIC ACID (12/16/2018 11:15 AM CDT) LACTIC ACID VENOUS 1.3 0.4 - 2.0 MMOL/L 12/16/2018 11:50 AM CDT [facility] 12/16/2018 11:1 5 AM CDT Jayro Cervantes MD LABORATORY Final Result [facility] [address] [place] [address], [place] [phone] * CULTURE, BACTERIA, BLOOD (12/16/2018 11:15 AM CDT) SPEC DESCRIPTION BLOOD 12/16/2018 10:34 AM CDT [facility] SPECIAL REQUESTS NO SPECIAL REQUEST 12/16/2018 10:34 AM CDT [facility] CULTURE RESULT NO GROWTH 5 DAYS 12/21/2018 8:34 AM CDT [facility] BLOOD SPECIMEN OBTAINED FOR BLOOD CULTURE / Unknown 12/16/2018 11:15 AM CDT 12/16/2018 11:39 AM CDT Jayro Cervantes MD MICROBIOLOGY - GENERAL ORDERAB LES Final Result Performing Organization Address [facility] Co de Phone Number [facility] [address] [place] [address], * CULTURE, BACTERIA, BLOOD (12/16/2018 11:15 AM CDT) SPEC DESCRIPTION BLOOD 12/16/2018 10:34 AM CDT [facility] SPECIAL REQUESTS NO SPECIAL REQUEST 12/16/2018 10:34 AM CDT [facility] CULTURE RESULT NO GROWTH 5 DAYS 12/21/2018 8:34 AM CDT [facility] BLOOD SPECIMEN OBTAINED FOR BLOOD CULTURE / Unknown 12/16/2018 11:15 AM CDT 12/16/2018 11:38 AM CDT Jayro Cervantes MD MICROBIOLOGY - GENERAL ORDERAB LES Final Result Performing Organization Address [facility] Co de Phone Number [facility] [address] [place] [address], * (ABNORMAL) COMPREHENSIVE METABOLIC PANEL (12/16/2018 11:15 AM CDT) GLUCOSE 162(H) 70 - 99 MG/DL 12/16/2018 11:56 AM CDT [facility] BUN 16 7 - 18 MG/DL 12/16/2018 11:56 AM CDT [facility] CREATININE S/P/B 0.87 0.55 - 1.02 MG/DL 12/16/2018 11:56 AM CDT [facility] SODIUM S/P/B 137 136 - 145 MMOL/L 12/16/2018 11:56 AM CDT [facility] POTASSIUM S/P/B 4.4 3.5 - 5.1 MMOL/L 12/16/2018 11:56 AM [facility] CHLORIDE S/P/B 103 100 - 108 MMOL/L 12/16/2018 11:56 AM T [facility] CO2 27.6 21 - 32 MMOL/L 12/16/2018 11:56 AM [facility] CALCIUM S/P/B 9.4 8.5 - 10.1 MG/DL 12/16/2018 11:56 AM T [facility] BILIRUBIN TOTAL S/P/B 0.7 0.2 - 1.2 MG/DL 12/16/2018 11:56 AM [facility] TOTAL PROTEIN S/P/B 8.6(H) 6.4 - 8.2 G/DL 12/16/2018 11:56 AM [facility] ALBUMIN S/P/B 3.5 3.4 - 5.0 G/DL 12/16/2018 11:56 AM [facility] AST 20 15 - 37 U/L 12/16/2018 11:56 AM [facility] ALT 24 14 - 55 U/L 12/16/2018 11:56 AM [facility] ALKALINE PHOSPHATASE S/P/B 112 50 - 136 U/L 12/16/2018 11:56 AM [facility] ANION GAP 6.4 5 - 15 MMOL/L 12/16/2018 11:56 AM T [facility] BUN CREATININE RATIO 18.3 6 - 26 12/16/2018 11:56 AM [facility] A/G RATIO 0.7(L) 1.0 - 2.0 RATIO 12/16/2018 11:56 AM [facility] EGFR NON-AFR. AMER. 71(L) >90 ML/MIN/1.7 3 M2 12/16/2018 11:56 AM T [facility] EGFR AFR. AMER. 83(L) >90 ML/MIN/1.7 3 M2 12/16/2018 11:56 AM CDT [facility] Comment: NOTE: eGFR is not calculated for patients <18 years of age. This is an estimated GFR (CKD EPI) and should not be used for calculating drug doses. 12/16/2018 11:1 5 AM CDT Jayro Cervantes MD LABORATORY Final Result [facility] [address] [place] [address], [place] [phone] * (ABNORMAL) CBC W/DIFF AUTOMATED (12/16/2018 11:15 AM CDT) WBC 9.2 4.5 - 11.0 x10'3/uL 12/16/2018 11:29 AM CDT [facility] RBC 4.64 4.20 - 5.40 x10'6/uL 12/16/2018 11:29 AM CDT [facility] HGB 13.1 12.0 - 16.0 G/DL 12/16/2018 11:29 AM CDT [facility] HCT 41.4 38.0 - 48.0 % 12/16/2018 11:29 AM CDT [facility] MCV 89.2 80.0 - 94.0 FL 12/16/2018 11:29 AM CDT [facility] MCH 28.2 27.0 - 31.0 PG 12/16/2018 11:29 AM CDT [facility] MCHC 31.6(L) 32.0 - 36.0 G/DL 12/16/2018 11:29 AM CDT [facility] RDW 15.3(H) 11.5 - 14.5 % 12/16/2018 11:29 AM CDT [facility] PLT 346 130 - 400 x10'3/uL 12/16/2018 11:29 AM T [facility] MPV 10.1 9.3 - 12.2 FL 12/16/2018 11:29 AM T [facility] DIFFERENTIAL TYPE AUTOMATED DIFFERENTIAL 12/16/2018 11:29 AM CDT [facility] NEUTROPHILS % 69.1 % 12/16/2018 11:29 AM CDT [facility] LYMPHOCYTES % 21.0 % 12/16/2018 11:29 AM T [facility] MONOCYTES % 7.0 % 12/16/2018 11:29 AM T [facility] EOSINOPHILS 2.3 % 12/16/2018 11:29 AM T [facility] BASOPHILS 0.2 % 12/16/2018 11:29 AM T [facility] IMMATURE GRANS % 0.4 % 12/17/19 19 11:29 AM T [facility] ABS. NEUTROPHILS TOTAL 6.36 1.80 - 7.70 x10'3/uL 12/16/2018 11:29 AM T [facility] ABS. LYMPHOCYTES 1.94 1.00 - 4.80 x10'3/uL 12/16/2018 11:29 AM CDT [facility] ABS. MONOCYTES 0.65 0.24 - 0.86 x10'3/uL 12/16/2018 11:29 AM T [facility] ABS. EOSINOPHILS 0.21 0.04 - 0.36 x10'3/uL 12/16/2018 11:29 AM T [facility] ABS. BASOPHILS 0.02 0.01 - 0.08 x10'3/uL 12/16/2018 11:29 AM CDT [facility] ABS. IMMATURE GRANULOCYTES 0.04 0.00 - 0.49 x10'3/uL 12/16/2018 11:29 AM CDT [facility] 12/16/2018 11:1 5 AM CDT Jayro Cervantes MD LABORATORY Final Result [facility] [address] [place] [address], [place] [phone] * (ABNORMAL) URINALYSIS (12/16/2018 11:04 AM CDT) SPECIMEN TYPE URINE CLEAN CATCH 12/16/2018 11:04 AM CDT [facility] COLOR (U) YELLOW 12/16/2018 11:53 AM CDT [facility] TRANSPARENCY CLEAR 12/16/2018 11:53 AM CDT [facility] SPECIFIC GRAVITY (U) 1.016 1.001 - 1.030 12/16/2018 11:53 AM CDT [facility] U PH 5.0 5.0 - 9.0 12/16/2018 11:53 AM CDT [facility] LEUKOCYTES (U) NEGATIVE NEGATIVE 12/16/2018 11:53 AM CDT [facility] NITRITES NEGATIVE NEGATIVE 12/16/2018 11:53 AM CDT [facility] PROTEIN (U) NEGATIVE <30 MG/DL 12/16/2018 11:53 AM CDT [facility] URINE GLUCOSE NEGATIVE NEGATIVE MG/DL 12/16/2018 11:53 AM CDT [facility] KETONES MG/DL (U) NEGATIVE NEGATIVE MG/DL 12/16/2018 11:53 AM CDT [facility] UROBILINOGEN NEGATIVE NEGATIVE MG/DL 12/16/2018 11:53 AM CDT [facility] BILIRUBIN (U) NEGATIVE NEGATIVE MG/DL 12/16/2018 11:53 AM CDT [facility] BLOOD (U) MODERATE(A) NEGATIVE 12/16/2018 11:53 AM CDT [facility] CULTURE & SENSITIVITY INDICATED? CULTURE IS NOT INDICATED 12/16/2018 11:53 AM CDT [facility] SQUAMOUS EPITHELIALS MODERATE /LPF 12/16/2018 11:53 AM CDT [facility] MUCUS RARE /LPF 12/16/2018 11:53 AM CDT [facility] WBC/HPF <1 <6 /HPF 12/16/2018 11:53 AM CDT [facility] RBC/HPF <1 <6 /HPF 12/16/2018 11:53 AM CDT [facility] URINE SPECIMEN OBTAINED BY CLEAN CATCH PROCEDURE / Unknown 12/16/2018 11:04 AM CDT Jayro Cervantes MD URINE ORDERABLES Final Result [facility] [address] [place] [address], [place] [phone] documented in this encounter Visit Diagnoses Diagnosis Lumbar back pain with radiculopathy affecting right lower extremity- Primary documented in this encounter Administered Medications Inactive Administered Medications - up to 3 most recent administrations Medication Order MAR Action Action Date Dose Rate Site HYDROmorphone (DILAUDID) injection 0.5 mg 0.5 mg, Intravenous, Once, 1 dose, On 12/16/18 at 1130, Administer slowly over at least 2-3 minutes. Given 12/16/2018 11:28 AM CDT 0.5 mg HYDROmorphone (DILAUDID) injection 0.5 mg 0.5 mg, Intravenous, Once, 1 dose, On 12/16/18 at 1400, Administer slowly over at least 2-3 minutes. Given 12/16/2018 2:11 PM CDT 0.5 mg ondansetron (ZOFRAN) injection 4 mg 4 mg, Intravenous, Once, 1 dose, On 12/16/18 at 1145, IV push over 2-5 minutes. Given 12/16/2018 11:54 AM CDT 4 mg documented in this encounter Active and Recently Administered Medications Times are shown in CDT. Scheduled Medication Order 12/14/2018 12/15/2018 12/16/2018 HYDROmorphone (DILAUDID) injection 0.5 mg (COMPLETED) 0.5 mg, Intravenous, Once, 1 dose, On 12/16/18 at 1130, Administer slowly over at least 2-3 minutes. 1128 (Given - Provid er: Jimmie Miguel RN - Comment: barcode on package damaged. )1130 (Due) HYDROmorphone (DILAUDID) injection 0.5 mg (COMPLETED) 0.5 mg, Intravenous, Once, 1 dose, On 12/16/18 at 1400, Administer slowly over at least 2-3 minutes. 1411 (Given - Provid er: Jimmie Miguel RN) ondansetron (ZOFRAN) injection 4 mg (COMPLETED) 4 mg, Intravenous, Once, 1 dose, On 12/16/18 at 1145, IV push over 2-5 minutes. 1154 (Given - Provid er: Jimmie Miguel RN) documented in this encounter Additional Health Concerns Infection Onset Date Last Indicated Resolved Time MRSA Comment:MRSA nares pos. 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 [place], [place] [address] PCP - General FAMILY PRACTICE 08/20/17 Meena Bansal MD [address] [place] [address] [place] Machine Bookkeeper CARDIOVASCULAR DISEASE 04/24/16 documented as of this encounter
--- OUTSIDE RECORDS SUMMARY | 2024-04-26 02:41 | XMS_ITS | Encounter Summary ---
Author Organization [facility] Address [address] [place] [address]. [place] [address] [place] [address] Care Team Providers Care Electrostatic Paint Operator Name Role Phone Meena Bansal MD Unavailable [phone] Justen Gale MD Primary Care Provider [phone] Reason for Visit * Reason Comments Shortness Of Breath Encounter Details Date Type Department Care Team (Late st Contact Info) Description 11/10/2019 2:53 PM CDT - 11/10/2019 5:34 PM CDT Emergency [facility] Emergency Room [place], [place] [id number] Leah Mackay NP [address] [id number] Shortness Of Breath Discharge Disposition: Home or [...] Sexual Orientation Straight 03/18/2018 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 No / Unsure 11/10/2019 2:41 PM CDT documented as of this encounter Last Filed Vital Signs Vital Sign Reading Time Taken Comments Blood Pressure 125/80 11/10/2019 5:00 PM CDT Pulse 95 11/10/2019 5:00 PM CDT Temperature 36.6 ??C (97.8 ??F) 11/10/2019 2:42 PM CD T Respiratory Rate 13 11/10/2019 5:00 PM CDT Oxygen Saturation 97% 11/10/2019 5:00 PM CDT Inhaled Oxygen Concentration - - Weight 134.8 kg (297 lb 2.9 oz) 11/10/2019 2:42 PM CDT Height 154.9 cm (5' 1 ) 11/10/2019 2:42 PM CDT Body Mass Index 56.15 11/10/2019 2:42 PM CDT documented in this encounter Functional [...] * Discharge Instructions* Leah Mackay NP - 11/10/2019 5:22 PM CDT Please make appt to see your doctor for follow up Testing today did not reveal the cause of your symptoms. * Attachments The following attachments cannot be sent through Care Everywhere. * Shortness of Breath (Dyspnea) Discharge Instructions (Albanian) documented in this encounter Medications at Time [...] of this encounter ED Notes * Leah Mackay NP - 11/10/2019 3:23 PM CDT Emergency Department Note Chief Complaint Chief Complaint Patient presents with ??? Shortness Of Breath History of Present Illness present with c/o sob x 10-14 days. States its hard to take a deep breath. Also with fatigue. Deniesfever or chest pain. States she can breath better without her mask. Hx- blood clots, takes xarelto. Last clot 2 years ago. States I was genetic tested and I do not have the gene for clots Medical History ALLERGIES: Allergies Allergen Reactions ??? [...] 8 (eight) hours asneeded for Nausea. 09/05/19 Neal Jaimes PA-C oxybutynin 5 MG tablet Take 5 [...] Last attempt to quit: 03/23/1977 Years since quittin.6 ??? Smokeless tobacco: Never Used Substance Use Topics ??? Alcohol use: No ??? Drug use: No N Review of Systems Review of Systems Constitutional: Negative for chills and fever. Pt appears anxious with assessment. HENT: Negative for sore throat. Eyes: Negative for visual disturbance. Respiratory: Positive for shortness of breath. Negative for cough. Cardiovascular: Negative for chest pain. Gastrointestinal: Negative for abdominal pain, constipation, diarrhea and nausea. Genitourinary: Negative for difficulty urinating. Skin: Negative for rash. Neurological: Negative for light-headedness and headaches. Psychiatric/Behavioral: Negative for decreased concentration. All other systems reviewed and are negative. Physical Exam Filed Vitals: 11/10/19 1442 11/10/19 1600 11/10/19 1645 11/10/19 1700 BP: (!) 149/96 109/72 118/79 125/80 Pulse: 98 97 90 95 Resp: 18 16 13 13 Temp: 97.8 ??F (36.6 ??C) TempSrc: Temporal SpO2: 98% 97% 95% 97% Weight: 134.8 kg (297 lb 2.9 oz) Height: 5' 1 (1.549 m) Physical Exam Constitutional: She is oriented to person, place, and time. She appears well- developed and well-nourished. No distress. HENT: Head: Normocephalic. Eyes: Pupils are equal, round, and reactive to light. Neck: Neck supple. Cardiovascular: Normal rate, regular rhythm, normal heart sounds and intact distal pulses. No murmur heard. Pulmonary/Chest: Effort normal and breath sounds normal. No acute distress. Speaks in full sentences. Abdominal: Soft. Bowel sounds are normal. There is no tenderness. Musculoskeletal: She exhibits no edema or tenderness. Neurological: She is alert and oriented to person, place, and time. Skin: Skin is warm and dry. No pallor. Psychiatric: She has a normal mood and affect. Her behavior is normal. Judgment and thought contentnormal. Nursing note and vitals reviewed. 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1955 Requested By: LEAH MACKAY Order Number: [id number] Reading MD: Measurements Intervals Higden Rate: 94 P: 36 SC: 133 QRS: 1 QRSD: 88 T: 51 QT: 349 QTc: 438 Interpretive Statements SINUS RHYTHM Compared to ECG 09/05/2019 19:13:10 No significant changes LABORATORY STUDIES: Results for orders placed or performed during the hospital encounter of 11/10/19 CBC W/DIFF AUTOMATED Result Value Ref Range WBC 13.5 (H) 4.5 - 11.0 x10'3/uL RBC 4.48 4.20 - 5.40 x10'6/uL HGB 12.9 12.0 - 16.0 G/DL HCT 40.6 38.0 - 48.0 % MCV 90.6 80.0 - 94.0 FL MCH 28.8 27.0 - 31.0 PG MCHC 31.8 (L) 32.0 - 36.0 G/DL RDW 14.4 11.5 - 14.5 % PLT 328 130 - 400 x10'3/uL MPV 9.6 9.3 - 12.2 FL DIFFERENTIAL TYPE AUTOMATED DIFFERENTIAL NEUTROPHILS 72.2 % LYMPHOCYTES 18.9 % MONOCYTES 6.8 % EOSINOPHILS 1.5 % BASOPHILS 0.3 % IMMATURE GRANS 0.3 % ABS. NEUTROPHILS TOTAL 9.71 (H) 1.80 - 7.70 x10'3/uL ABS. LYMPHOCYTES 2.55 1.00 - 4.80 x10'3/uL ABS. MONOCYTES 0.92 (H) 0.24 - 0.86 x10'3/uL ABS. EOSINOPHILS 0.20 0.04 - 0.36 x10'3/uL ABS. BASOPHILS 0.04 0.01 - 0.08 x10'3/uL ABS. IMMATURE GRANULOCYTES 0.04 0.00 - 0.49 x10'3/uL COMPREHENSIVE METABOLIC PANEL Result Value Ref Range GLUCOSE 134 (H) 70 - 99 MG/DL BUN 20 (H) 7 - 18 MG/DL CREATININE S/P/B 0.90 0.55 - 1.02 MG/DL SODIUM 137 136 - 145 MMOL/L POTASSIUM 4.2 3.5 - 5.1 MMOL/L CHLORIDE S/P/B 105 100 - 108 MMOL/L CO2 26.9 21 - 32 MMOL/L CALCIUM 8.9 8.5 - 10.1 MG/DL BILIRUBIN TOTAL S/P/B 0.3 0.2 - 1.2 MG/DL TOTAL PROTEIN S/P/B 8.3 (H) 6.4 - 8.2 G/DL ALBUMIN S/P/B 3.0 (L) 3.4 - 5.0 G/DL AST 17 15 - 37 U/L ALT 26 14 - 55 U/L ALKALINE PHOSPHATASE S/P/B 100 50 - 136 U/L ANION GAP 5.1 5 - 15 MMOL/L BUN CREATININE RATIO 22.3 6 - 26 A/G RATIO 0.6 (L) 1.0 - 2.0 RATIO eGFR Non-Afr. Amer. 68 (L) >90 ML/MIN/1.73 M2 eGFR Afr. Amer. 79 (L) >90 ML/MIN/1.73 M2 TROPONIN, QUANT Result Value Ref Range TROPONIN I <0.015 <0.045 ng/mL. IMAGING STUDIES XR CHEST PORTABLE Final Result by User, [id number] (11/09 3721) Exam: Chest x-ray Comparison 09/05/2019 INDICATION: Shortness of breath for 2 weeks. TECHNIQUE: One view FINDINGS: Heart size and pulmonary vessels are within normal limits. The lungs are clear. No interstitial edema, hyperinflation, or pleural fluid. Mild dextroscoliosis and small lateral osteophytes in the thoracic spine. IMPRESSION: No acute findings. Interpreted By: Brian Stauffer MD, 11/10/2019 3:55 PM ED Course / Medical Decision Making ED Course as of Nov 10 1755 Sun Nov 10, 2019 170 1 view chest xray reviewed. Read by radiologist no infiltrate, heart size normal and no pneumothorax. Report read. [LM] 1707 Labs unremarkable. [LM] 170 EKG INTERPRETATION Date: 11/10/2019 Time: 163 Interpretation: SR VR: 94 QTc: 438 Ectopy : no Ekg interpretation provided by Dr Kennedy No ischemic changes No STEMI Prior EKG for comparison 09/05/2019 no sign changes Reviewed and scribed by , GREENHOUSE ASSISTANT [LM] ED Course User Index [LM] Leah Mackay NP Medications ondansetron (ZOFRAN) injection 4 mg (4 mg Intravenous Given 11/10/19 1635) Clinical Impression SOB (shortness of breath) (Primary) Discharge Medication List as of 11/10/2019 5:23 PM Medications ondansetron (ZOFRAN) injection 4 mg (4 mg Intravenous Given 11/10/19 1635) Discharge Medication List as of 11/10/2019 5:23 PM I have discussed today's findings with the patient and provided information regarding the likely diagnosis. The patient has been given information regarding plan. I have expressed the the importance of seeking attention should there be any new, or worsening symptoms or persistence of their condition. The patient is stable at time of disposition. Disposition: Discharge Follow-Up: Justen Gale MD [address] [address] [place] [address] Schedule an appointment as soon as possible for a visit Jacek Navarro MD [facility]. [address] [place] [address] Schedule an appointment as soon as possible for a visit for further evaluation / cardiac LEAH MACKAY NP 11/10/2019 Leah Mackay NP 11/10/19 3956 Cosigned by Gonsalo Harrison MD at 11/11/2019 7:12 AM CDT * Abiola Jimenez RN - 11/10/2019 2:46 PM CDT To triage with c/o sob x 2 weeks. States she fells like she isn't getting enough air. Hx; DVT and PE. Had negative covid test Monday. documented in this encounter Plan of Treatment Not on file documented as of this encounter Procedures Procedure Name Priority Date/Time Associated Diagnosis Comments ECG 12-LEAD Routine 11/10/2019 4:31 PM CDT COMPREHENSIVE METABOLIC PANEL STAT 11/10/2019 4:02 PM CDT CBC W/DIFF AUTOMATED STAT 11/10/2019 4:02 PM CDT TROPONIN, QUANT STAT 11/10/2019 4:02 PM CDT XR CHEST PORTABLE STAT 11/10/2019 3:5 1 PM CDT documented in this encounter Results * ECG 12 lead (11/10/2019 4:31 PM CDT) 11/10/2019 4:31 PM CDT Narrative [facility] - 11/10/2019 9:21 PM CDT ?[facility] ? [address] [place] ? Test Date: ?2019-11-10 Pat Name: ? MOHSEN MARQUES ?Department: ? Room: ? [id number] Gender: ? Female ? 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 KP : ?1955 ? Requested By: LEAH MACKAY Order Number: [id number] ? Reading MD: ?? Jacek Navarro ? Measurements Intervals ?Higden ? Rate: ? 94 ? P: ?36 SC: ? 133 ?QRS: ?1 QRSD: ? 88 ? T: ?51 QT: ? 349 ? QTc: ?438 ? Interpretive Statements Amira Carolina M.D. 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 SINUS RHYTHM Compared to ECG 09/05/2019 19:13:10 No significant changes No ischemic changes Amor Rdz CRITICAL ALERT ISSUED ON 11-10-2019 16:37:52 us Leah Mackay GREENHOUSE ASSISTANT ECG ORDERABLES Final Result [facility] * TROPONIN, QUANT (11/10/2019 4:02 PM CDT) TROPONIN I <0.015 <0.045 ng/mL. 11/10/2019 4:38 PM CDT [facility] Comment: HIGH DOSES OF BIOTIN MAY INTERFERE WITH THIS TEST RESULT. CORRELATION TO CLINICAL HISTORY AND PRESENTATION RECOMMENDED. 11/10/2019 4:02 PM CDT Leah Mackay NP LABORATORY Final Result Performing Organization Address [facility]/ZIP Co de Phone Number [facility] [address] [place] [id number], [place] [phone] * (ABNORMAL) COMPREHENSIVE METABOLIC PANEL (11/10/2019 4:02 PM CDT) GLUCOSE 134(H) 70 - 99 MG/DL 11/10/2019 4:38 PM CDT [facility] BUN 20(H) 7 - 18 MG/DL 11/10/2019 4:38 PM CDT [facility] CREATININE S/P/B 0.90 0.55 - 1.02 MG/DL 11/10/2019 4:38 PM CDT [facility] SODIUM S/P/B 137 136 - 145 MMOL/L 11/10/2019 4:38 PM CDT [facility] POTASSIUM S/P/B 4.2 3.5 - 5.1 MMOL/L 11/10/2019 4:38 PM CDT [facility] CHLORIDE S/P/B 105 100 - 108 MMOL/L 11/10/2019 4:38 PM CDT [facility] CO2 26.9 21 - 32 MMOL/L 11/10/2019 4:38 PM CDT [facility] CALCIUM S/P/B 8.9 8.5 - 10.1 MG/DL 11/10/2019 4:38 PM T [facility] BILIRUBIN TOTAL S/P/B 0.3 0.2 - 1.2 MG/DL 11/10/2019 4:38 PM T [facility] Comment: THIS ASSAY IS NOT RECOMMENDED FOR PATIENTS UNDERGOING TREATMENT WITH ELTROMBOPAG DUE TO THE POTENTIAL FOR FALSELY ELEVATED RESULTS. TOTAL PROTEIN S/P/B 8.3(H) 6.4 - 8.2 G/DL 11/10/2019 4:38 PM T [facility] ALBUMIN S/P/B 3.0(L) 3.4 - 5.0 G/DL 11/10/2019 4:38 PM T [facility] AST 17 15 - 37 U/L 11/10/2019 4:38 PM T [facility] ALT 26 14 - 55 U/L 11/10/2019 4:38 PM T [facility] ALKALINE PHOSPHATASE S/P/B 100 50 - 136 U/L 11/10/2019 4:38 PM [facility] ANION GAP 5.1 5 - 15 MMOL/L 11/10/2019 4:38 PM T [facility] BUN CREATININE RATIO 22.3 6 - 26 11/10/2019 4:38 PM T [facility] A/G RATIO 0.6(L) 1.0 - 2.0 RATIO 11/10/2019 4:38 PM T [facility] EGFR NON-AFR. AMER. 68(L) >90 ML/MIN/1.7 3 M2 11/10/2019 4:38 PM T [facility] EGFR AFR. AMER. 79(L) >90 ML/MIN/1.7 3 M2 11/10/2019 4:38 PM CDT [facility] Comment: NOTE: eGFR is not calculated for patients <18 years of age. This is an estimated GFR (CKD EPI) and should not be used for calculating drug doses. 11/10/2019 4:02 PM CDT us Leah Mackay NP LABORATORY Final Result [facility] [address] [place] [address], [place] [phone] * (ABNORMAL) CBC W/DIFF AUTOMATED (11/10/2019 4:02 PM CDT) WBC 13.5(H) 4.5 - 11.0 x10'3/uL 11/10/2019 4:17 PM CDT [facility] RBC 4.48 4.20 - 5.40 x10'6/uL 11/10/2019 4:17 PM CDT [facility] HGB 12.9 12.0 - 16.0 G/DL 11/10/2019 4:17 PM CDT [facility] HCT 40.6 38.0 - 48.0 % 11/10/2019 4:17 PM CDT [facility] MCV 90.6 80.0 - 94.0 FL 11/10/2019 4:17 PM CDT [facility] MCH 28.8 27.0 - 31.0 PG 11/10/2019 4:17 PM CDT [facility] MCHC 31.8(L) 32.0 - 36.0 G/DL 11/10/2019 4:17 PM CDT [facility] RDW 14.4 11.5 - 14.5 % 11/10/2019 4:17 PM CDT [facility] PLT 328 130 - 400 x10'3/uL 11/10/2019 4:17 PM CDT [facility] MPV 9.6 9.3 - 12.2 FL 11/10/2019 4:17 PM CDT [facility] DIFFERENTIAL TYPE AUTOMATED DIFFERENTIAL 11/10/2019 4:17 PM CDT [facility] NEUTROPHILS % 72.2 % 11/10/2019 4:17 PM CDT [facility] LYMPHOCYTES % 18.9 % 11/10/2019 4:17 PM CDT [facility] MONOCYTES % 6.8 % 11/10/2019 4:17 PM CDT [facility] EOSINOPHILS 1.5 % 11/10/2019 4:17 PM CDT [facility] BASOPHILS 0.3 % 11/10/2019 4:17 PM CDT [facility] IMMATURE GRANS % 0.3 % 11/10/19 20 4:17 PM CDT [facility] ABS. NEUTROPHILS TOTAL 9.71(H) 1.80 - 7.70 x10'3/uL 11/10/2019 4:17 PM CDT [facility] ABS. LYMPHOCYTES 2.55 1.00 - 4.80 x10'3/uL 11/10/2019 4:17 PM CDT [facility] ABS. MONOCYTES 0.92(H) 0.24 - 0.86 x10'3/uL 11/10/2019 4:17 PM CDT [facility] ABS. EOSINOPHILS 0.20 0.04 - 0.36 x10'3/uL 11/10/2019 4:17 PM CDT [facility] ABS. BASOPHILS 0.04 0.01 - 0.08 x10'3/uL 11/10/2019 4:17 PM CDT [facility] ABS. IMMATURE GRANULOCYTES 0.04 0.00 - 0.49 x10'3/uL 11/10/2019 4:17 PM CDT [facility] 11/10/2019 4:02 PM CDT Leah Mackay NP LABORATORY Final Result [facility] [address] [place] [address], [place] [phone] * XR CHEST PORTABLE (11/10/2019 3:51 PM CDT) Anatomical Region Laterality Modality Chest Radiographic Lizeth ging 11/10/2019 3:55 PM CDT Impressions 11/10/2019 3:58 PM CDT IMPRESSION: No acute findings. Interpreted By: Brian Stauffer MD, 11/10/2019 3:55 PM Narrative 11/10/2019 3:58 PM CDT Exam: Chest x-ray Comparison 09/05/2019 INDICATION: Shortness of breath for 2 weeks. TECHNIQUE: One view FINDINGS: Heart size and pulmonary vessels are within normal limits. ??The lungs are clear. ??No interstitial edema, hyperinflation, or pleural fluid. ??Mild dextroscoliosis and small lateral osteophytes in the thoracic spine. Procedure Note Brian Stauffer MD - 11/10/2019 Exam: Chest x-ray Comparison 09/05/2019 INDICATION: Shortness of breath for 2 weeks. TECHNIQUE: One view FINDINGS: Heart size and pulmonary vessels are within normal limits. Thelungs are clear. No interstitial edema, hyperinflation, or pleural fluid.Mild dextroscoliosis and small lateral osteophytes in the thoracicspine. IMPRESSION: No acute findings. Interpreted By: Brian Stauffer MD, 11/10/2019 3:55 PM us Leah Mackay NP GENERAL IMAGING Final Result documented in this encounter Visit Diagnoses Diagnosis SOB (shortness of breath)- Primary Shortness of breath documented in this encounter Administered Medications Inactive Administered Medications - up to 3 most recent administrations Medication Order MAR Action Action Date Dose Rate Site ondansetron (ZOFRAN) injection 4 mg 4 mg, Intravenous, Once, 1 dose, On 11/10/19 at 1645, IV push over 2-5 minutes. Given 11/10/2019 4:35 PM CDT 4 mg documented in this encounter Active and Recently Administered Medications Times are shown in CDT. Scheduled Medication Order 11/08/2019 11/09/2019 11/10/2019 ondansetron (ZOFRAN) injection 4 mg (COMPLETED) 4 mg, Intravenous, Once, 1 dose, On 11/10/19 at 1645, IV push over 2-5 minutes. 1635 (Given - Provid er: Sumaya Betts RN) documented in this encounter Additional Health Concerns Infection Onset Date Last Indicated Resolved Time MRSA Comment:MRSA nares pos. 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 [address] [place] [address] PCP - General FAMILY PRACTICE 08/20/17 Meena Bansal MD [facility]. [address] [place] [address] [place] [employer] Ii Dispatcher CARDIOVASCULAR DISEASE 04/24/16 documented as of this encounter
--- OUTSIDE RECORDS SUMMARY | 2024-04-26 02:41 | XMS_ITS | Encounter Summary ---
Author Organization [facility] Address [address] [place] [address]. [place] [address] [place] [address] Care Team Providers Care Quantitative Associate Name Role Phone Meena Bansal MD Unavailable [phone] Gerardo Hoffman MD Primary Care Provider [phone] Reason for Referral * Consultation (Routine) - Closed Specialty Diagnoses / Procedures Referred By Contac t Referred To Contact GASTROENTEROLOGY Diagnoses Abdominal pain Shanthi Mendez MD 3 [facility] [address] [place] [address] Phone: tel: fax: Referral ID Status Reason Start Date Expiration Date Visits Re quested Visits Authorized [id number] Closed 09/11/2018 10/13/2019 1 1 * Surgical (Routine) - Closed Specialty Diagnoses / Procedures Referred By Contac t Referred To Contact Procedures Case request operating room: EGD, COLONOSCOPY Crissy Sheppard MD 3 [facility] [address] [place] [id number] Phone: tel: fax: Referral ID Status Reason Start Date Expiration Date Visits Re quested Visits Authorized [id number] Closed 09/09/2018 10/11/2019 1 1 * (Routine) - Closed Specialty Diagnoses / Procedures Referred By Contac t Referred To Contact Procedures OT eval and treat Jonel Pabon DO 3 [facility] [address] [place] [address] Phone: tel: fax: Referral ID Status Reason Start Date Expiration Date Visits Re quested Visits Authorized [id number] Closed 09/09/2018 10/11/2019 1 1 * (Routine) - Closed Specialty Diagnoses / Procedures Referred By Contac t Referred To Contact Procedures PT eval and treat Jonel Pabon DO [address] [address] Phone: tel: fax: Referral ID Status Reason Start Date Expiration Date Visits Re quested Visits Authorized [id number] Closed 09/09/2018 10/11/2019 1 1 Reason for Visit * Reason Comments Abdominal Pain Vomiting * Auth/Cert Specialty Diagnoses / Procedures Referred By Contac t Referred To Contact Diagnoses Abdominal pain Abdominal pain Referral ID Status Reason Start Date Expiration Date Visits Re quested Visits Authorized [id number] 1 1 Encounter Details Date Type Department Care Team (Late st Contact Info) Description 09/09/2018 12:37 AM CDT - 09/11/2018 5:13 PM CDT Emergency [facility] Med/Surg [address] [place] [address] Colten Reilly MD Cagle, Stephen D, MD 3 [facility] [address] [place] [id number] Abdominal Pain; Vomiting Discharge Disposition: Home or Self Care (Routine [...] Sexual Orientation Straight 03/18/2018 3: 01 AM [employer] documented as of this encounter Last Filed Vital Signs Vital Sign Reading Time Taken Comments Blood Pressure 125/69 09/11/2018 2:48 PM CDT Pulse 71 09/11/2018 2:48 PM CDT Temperature 36.4 ??C (97.5 ??F) 09/11/2018 2:48 PM CD T Respiratory Rate 20 09/11/2018 2:48 PM CDT Oxygen Saturation 94% 09/11/2018 2:48 PM CDT Inhaled Oxygen Concentration - - Weight 131.5 kg (290 lb) 09/08/2018 10:54 PM CDT Height 154.9 cm (5' 1 ) 09/08/2018 10:54 PM CDT Body Mass Index 54.8 09/08/2018 10:54 PM CDT documented in this encounter Functional Status * Question Answer Date of Assessment Author Status Do you have serious difficulty walking or climbing stairs? No 09/09/2018 5:09 AM CDT Farzaneh Morgan RN Ac tive * Question Answer Date of Assessment Author Status Do you have difficulty dressing or bathing? No 09/09/2018 5:09 AM CDT Farzaneh Morgan R N Active Because of a physical, mental, or emotional condition, do you have difficulty doing errands alone such as visiting a doctor's office or shopping? No 09/09/2018 5:09 AM CDT Farzaneh Morgan RN Act hugh * RETIRED Are you [...] difficulty concentrating, remembering, or making decisions? No 09/09/2018 5:09 AM Farzaneh Juan R N Active * Because of a physical, mental, or emotional condition, do you have serious difficulty concentrating, remembering, or making decisions? Answer Entry Date Author Status No 09/09/2018 5:09 AM Farzaneh Juan RN Active documented in this encounter Medications [...] by mouth nightly at bedtime. 10/13/19 24 docusate sodium (COLACE) 100 MG capsule Take 1 capsule (100 mg total) by mouth 2 (two) times daily for 30 days. 60 capsule 9 10/12/19 19 hydrocodone-acetam inophen 7.5-325 MG tablet Take 1-2 tablets by mouth every 4 (four) hours as needed for Pain. 07/01/19 20 lisinopril 20 MG tablet Take 20 mg by mouth daily. 10/13/19 24 oxybutynin 5 MG tablet Take 5 mg by mouth 2 (two) times daily. 10/13/19 24 polyethylene glycol packet Take 2 packets (34 g total) by mouth daily for 30 days. Dissolve powder in 240 mL water 60 packet 9 10/13/19 19 documented as of this encounter Progress Notes * Shanthi Mendez MD - 09/11/2018 3:37 PM CDT Discussed small bowel follow through with radiologist. Transit time within normal limits. No evidence of obstruction. Cosigned by Kirit Stafford MD at 09/12/2018 9:58 AM CDT * Melita Farah MD - 09/11/2018 11:29 AM CDT Images from the original note were not included. DAILY PROGRESS NOTE ID: Karly Marques is a 63-year-old female with PMH type 2 DM, PE/DVT, breast cancer, hypertension, LUL, hypothyroidism admitted on 09/09/18 for intractable abdominal pain 24H: Upper and lower scope performed yesterday and were unremarkable. Had an episode of lip swelling overnight for which she received benadryl and epinephrine. SUBJECTIVE: Some improvement in abdominal pain, states she is about to head down to radiology, no acute concerns or complaints. Scheduled medications: ??? acetaminophen 650 mg Oral 4 times per day ??? amitriptyline 25 mg Oral Nightly at bedtime ??? docusate sodium 100 mg Oral BID ??? exemestane 25 mg Oral Daily with supper ??? insulin glargine 50 Units Subcutaneous QAM ??? insulin lispro 0-16 Units Subcutaneous TID AC And ??? insulin lispro 0-8 Units Subcutaneous Nightly at bedtime ??? insulin lispro 20 Units Subcutaneous TID WC ??? lisinopril 20 mg Oral Daily ??? oxybutynin 5 mg Oral BID ??? pantoprazole EC 40 mg Oral Daily ??? polyethylene glycol 34 g Oral Daily ??? rivaroxaban 20 mg Oral Daily ??? ropinirole 5 mg Oral Nightly at bedtime PRN medications: dextrose, dextrose, glucagon, hydrocodone-acetaminophen, ondansetron OBJECTIVE: Vitals: Blood pressure 110/69, pulse 75, temperature 98.3 ??F (36.8 ??C), temperature source Oral, resp. rate 18, height 5' 1 (1.549 m), weight 131.5 kg (290 lb), SpO2 93 %., Body mass index is 54.8kg/m??. Temp: [97.6 ??F (36.4 ??C)-98.3 ??F (36.8 ??C)] 98.3 ??F (36.8 ??C) Pulse: [66-90] 75 Resp: [14-21] 18 BP: (97-124)/(56-79) 110/69 Physical Exam: Physical Exam Constitutional: She is oriented to person, place, and time and well-developed, well-nourished, and in no distress. HENT: Head: Normocephalic and atraumatic. Cardiovascular: Normal rate, regular rhythm and normal heart sounds. Pulmonary/Chest: Effort normal. No respiratory distress. She has no wheezes. She has no rales. Breath sounds distant Abdominal: Soft. Bowel sounds are normal. She exhibits no distension. There is no tenderness. Thereis no rebound and no guarding. Musculoskeletal: She exhibits no edema. Neurological: She is alert and oriented to person, place, and time. Skin: Skin is warm and dry. I/O's: Intake/Output Summary (Last 24 hours) at 09/11/2018 1130 Last data filed at 09/11/2018 0456 Gross per 24 hour Intake 714 ml Output 300 ml Net 414 ml Last 5 Recorded Weights 09/08/18 2254 Weight: 131.5 kg (290 lb) Labs: Recent Labs Lab 09/04/18 1911 09/09/18 0050 09/10/18 0557 09/11/18 0519 WBC 11.4* 12.5* 7.6 9.5 RBC 4.51 4.84 3.93* 3.75* HGB 12.7 13.5 10.9* 10.5* HCT 40.7 42.7 35.8* 33.9* MCV 90.2 88.2 91.1 90.4 MCH 28.2 27.9 27.7 28.0 MCHC 31.2* 31.6* 30.4* 31.0* PLT 356 383 268 272 RDW 14.0 13.8 13.9 14.1 MPV 10.2 9.7 9.8 10.1 PERNEU 67.0 -- 56.8 62.0 PERLYM 23.3 -- 28.9 25.3 PERMON 6.3 -- 8.0 8.6 LYMC 2.66 -- 2.19 2.41 MONOC 0.72 -- 0.61 0.82 EOSC 0.30 -- 0.42* 0.32 BASOC 0.04 -- 0.03 0.04 DTYPE AUTOMATED DIFFERENTIAL MANUAL DIFFERENTIAL AUTOMATED DIFFERENTIAL AUTOMATED DIFFERENTIAL Recent Labs Lab 09/09/18 0050 09/10/18 0557 09/11/18 0519 NA 135* 136 141 K 4.2 4.3 4.2 CL 102 106 109* CO2 28.7 22.6 26.6 AGAP 8.5 11.7 9.6 BUN 20* 13 17 CR 0.93 0.64 0.85 BUNCREATININ 21.6 20.3 20.1 GFRNON 66* >90 73* GFR 76* >90 85* GLU 191* 121* 190* CA 9.4 8.5 8.7 TP 9.0* 6.8 7.0 ALB 3.6 2.7* 2.8* TBIL 0.4 0.7 0.4 ALKP 102 78 85 AST 20 18 14* ALT 26 22 22 No results for input(s): INR in the last 168 hours. Invalid input(s): PT No results for input(s): TROP, CPK, MB in the last 168 hours. No results for input(s): LACTICACID, PROCT in the last 168 hours. No results for input(s): PH, PCO2, PO2, [id number], BICARBWB, BASEDEFICIT, BASEEXCESS in the [id number] hours. Cultures: Blood: No results found for this visit on 09/09/18 (from the past 168 hour(s)). Urine: Results for orders placed or performed during the hospital encounter of 09/09/18 (from the past 168hour(s)) CULTURE URINE Collection Time: 09/09/18 12:51 AM Result Value Ref Range Spec. Description URINE CLEAN CATCH Special Requests: NO SPECIAL REQUEST Culture Result: POLYMICROBIAL GROWTH CONSISTENT WITH NORMAL GENITAL YESENIA. SUSCEPTIBILITIES NOT ROUTINELY PERFORMED. Microbiology Results (last 14 days) Procedure Component Value Units Date/Time OCCULT BLOOD, FECES [[id number]] Order Status: No result Lab Status: No result Specimen: STOOL CULTURE URINE [[id number]] Collected: 09/09/18 0051 Order Status: Completed Lab Status: In process Updated: 09/09/18 0108 CULTURE URINE [[id number]] Collected: 09/04/18 191 Order Status: Completed Lab Status: Final result Updated: 09/07/18 0933 Specimen: URINE, CLEAN CATCH Spec. Description URINE CLEAN CATCH Special Requests: NO SPECIAL REQUEST Culture Result: -- POLYMICROBIAL GROWTH CONSISTENT WITH NORMAL GENITAL YESENIA. SUSCEPTIBILITIES NOT ROUTINELY PERFORMED. CULTURE STOOL [[id number]] Collected: 08/31/18905 Order Status: Completed Lab Status: Final result Updated: 09/03/18 0839 Specimen: STOOL Spec. Description STOOL Special Requests: NO SPECIAL REQUEST Culture Result: NEGATIVE FOR SHIGA TOXIN 1 AND 2 Culture Result: NO ENTERIC PATHOGENS ISOLATED Culture Result: -- NOTE: STOOL CULTURES ARE ROUTINELY SCREENED FOR SALMONELLA,SHIGELLA,YERSINIA,AEROMONAS,PLESIOMONAS,CAMPYLOBA CTER,E.COLI 0157,OVERGROWTHS OF S.AUREUS,YEAST AND P. AERUGINOSA CRYPTO/GIARDIA AG, EIA STOOL [[id number]] Collected: 08/31/18905 Order Status: Completed Lab Status: Final result Updated: 08/31/18 1443 Specimen: STOOL GIARDIA ANTIGEN: NEGATIVE CRYPTOSPOR. ANTIGEN: NEGATIVE CLOSTRIDIUM DIFFICILE [[id number]] (Abnormal) Collected: 08/31/18905 Order Status: Completed Lab Status: Final result Updated: 08/31/18 1434 Specimen: STOOL MOLECULAR ASSAY -- UNACCEPTABLE SPECIMEN RECEIVED FOR TESTING. ONLY LIQUID STOOLS ARE ACCEPTABLE UNLESS ILEUS IS PRESENT. Comment: Successful Call: CHON called 08/31/2018 02:34 PM to ROOM [id number] ([facility]/[place]) by [id number]. Read Back: Yes CULTURE, BACTERIA, BLOOD [[id number]] Collected: 08/30/18 2216 Order Status: Completed Lab Status: Final result Updated: 09/05/1830 Specimen: BLOOD Spec. Description BLOOD Special Requests: NO SPECIAL REQUEST Culture Result: NO GROWTH 6 DAYS CULTURE, BACTERIA, BLOOD [[id number]] Collected: 08/30/18 2216 Order Status: Completed Lab Status: Final result Updated: 09/05/1830 Specimen: BLOOD Spec. Description BLOOD Special Requests: NO SPECIAL REQUEST Culture Result: NO GROWTH 6 DAYS OCCULT BLOOD, FECES [[id number]] Collected: 08/30/18 2135 Order Status: Completed Lab Status: Final result Updated: 08/30/18 2306 Specimen: STOOL OCCULT BLOOD, FECAL NEGATIVE CULTURE URINE [[id number]] Collected: 08/30/18 1502 Order Status: Completed Lab Status: Final result Updated: 08/31/18 1429 Specimen: URINE, CLEAN CATCH Spec. Description URINE CLEAN CATCH Special Requests: NO SPECIAL REQUEST Culture Result: -- POLYMICROBIAL GROWTH CONSISTENT WITH NORMAL GENITAL YESENIA. SUSCEPTIBILITIES NOT ROUTINELY PERFORMED. ASSESSMENT AND PLAN: Patient is a 63-year-old female with PMHx of type 2 DM, PE/DVT, breast cancer, hypertension, LUL, hypothyroidism admitted for abdominal pain. Abdominal pain: Acute. Unclear source of patient's pain as CT abdo/pelvis negative x 3 prior to admission, EGD and colonoscopy unremarkable.??Could consider gut edema as rare cause of abdominal pain with reported history of multiple episodes of lip edema in past. - small bowel follow through today -zofran q6h prn for nausea -NS at 150 cc/hr -Home [place]hen -Bowel regimen ordered ?? 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 Type 2 diabetes: - Continue Home Insulin of Lantus 50 ubnits q am - basal/boluls plus correctional ?? Other chronic illnesses: continue Requip and Exemestane Diet: NPO for upper and lower scope today Fluids: NS @125ml/hr DVT Prophylaxis: anticoagulated on xarelto DISPOSITION: Possible discharge home today after small bowel follow through. Plan discussed with attending physician. MELITA FARAH MD Family Medicine, PGY-1 Cosigned by Kirit Stafford MD at 09/12/2018 10:04 AM CDT Associated attestation - Kirit Stafford MD - 09/12/2018 10:04 AM CDT Teaching Physician - I, KIRIT STAFFORD MD, performed an examination of the patient and discussed the management with the resident. I reviewed the Resident's note and agree with the findings and plan of care, except as I have documented below. * Magda Ramos OTR - 09/11/2018 7:59 AM CDT 09/11/18 0700 Subjective Subjective Room A 311: OT orders received prior to colonoscopy under general anesthesia. Will d/c current order and await new orders when appropriate for therapy. Magda Ramos OTR * Jane Moss RN - 09/11/2018 5:28 AM CDT Problem: Daily Care Goal: Daily care needs are met Assess and monitor ability to perform self care and identify potential discharge needs. Outcome: Progressing Patient had episode of lip and throat swelling. Swelling of lips was quite noticeable. MDs called and responded to room , gave orders for IM and PO medication. VS monitored carefully, and remained stable. By 0100 facial swelling had diminished quite a bit and pt was much more comfortable, with no effects to her throat, as previously mentioned. .me * Jane Moss RN - 09/11/2018 5:25 AM CDT Problem: Pain - Acute Goal: Achieve acceptable pain level Outcome: Progressing Pain well controlled tonight with initial dose of Mcmechen tablets. Pt able to sleep at intervals. Oneepisode of nausea alleviated with Zofran at 0500. Overall improvement in incidence of abdominal pain. * Kip Mercedes MD - 09/10/2018 11:20 PM CDT Situation: At 2049 nurse informed me that the patient was possibly having an allergic reaction. Her lips are swollen and it seemed to be affecting her speech. Background Patient has a history of multiple episodes of lip and tongue swelling secondary to a number of medications she has been trialed on including trazodone and ceftriaxone. Assessment: Patient was found to have swelling of the lips and subjective swelling of the tongue. No SOB or difficulty swallowing. The offending cause may be 1 of her in- hospital medications that she is not typically on at home. These include pantoprazole, ondansetron, IV ketorolac, IV normal saline. Recommendation and Plan: Epinephrine 0.5 IM and diphenhydramine 50 p.o. were ordered. Consider cessation of and alternative to FLOYD inhibitor. Follow up vitals Cosigned by Kirit Stafford MD at 09/12/2018 9:59 AM CDT Associated attestation - Kirit Stafford MD - 09/12/2018 9:59 AM CDT Teaching Physician - I, KIRIT STAFFORD MD, performed an examination of the patient and discussed the management with the resident. I reviewed the Resident's note and agree with the findings and plan of care, except as I have documented below. * Mary Hernandez RN - 09/10/2018 4:21 PM CDT NCM performed bedside interview: Support: -Jimmie and daughter-Yunior Home: Lives in a one story home with her daughter. Ambulation: Reports independent prior to admission. DME products: [employer]: CPAP machine through [employer], BP cuff, and glucometer. ADLs: Reports independent prior to admission with the assistance of her daughter. Transport Home: or daughter. Pt rarely drives. Skin/Bladder/Bowel: No deficits reported. A/O: Answers questions with intent and clarity. Communication: No deficits noted or reported. Home Health: None Occupation: Disabled. [facility]acy: [facility] Financial Concerns: None PCP: Gerardo Hoffman Insurance Plan: [facility] Notes: Pt's dtr is paid through [employer] 20 hrs a week to assist with ADL's. Discharge needs: Care Coordination Team will provide discharge planning as needed, and will re-evaluate based on recommendations and treatment course. * Magda Ramos OTR - 09/10/2018 9:48 AM CDT 09/10/18 0900 Subjective Subjective ROOM A311: EMR reviewed, Pt. with plan for upper and lower scope with GI this date. Willhold OT eval at this time and initiate services once more information becomes available pending results of procedures. Magda Ramos OTR * Rashel Taylor - 09/10/2018 9:44 AM CDT 09/10/18 0931 Clinical Encounter Type Visited With Patient Total number in room 2 Routine Visit Initial visit Plan of Care Care Plan Initiated Yes;Patient Spiritual Care interventions Spiritual care plan interventions Provide prayer/ritual/sacraments;Provide support to patient/family Sacramental Encounters Communion Patient wants communion Sacrament of Sick-Anointing yes Anointed by/date Fr. Kiser 09/10/18 * Rashel Taylor - 09/10/2018 9:43 AM CDT 09/10/18 0931 Spiritual Care Patient Status Visit date 09/10/18 Physical condition of patient Alert Indication of spiritual strengths Hopeful;Supportive relationship;Prayerful Spiritual Beliefs/Perceptions Support Systems Children Plan of Care Care Plan Initiated Yes;Patient * Melita Farah MD - 09/10/2018 6:38 AM CDT Images from the original note were not included. DAILY PROGRESS NOTE ID: Karly Marques is a 63-year-old female with PMH type 2 DM, PE/DVT, breast cancer, hypertension, LUL, hypothyroidism admitted on 09/09/18 for intractable abdominal pain 24H: No acute events overnight. SUBJECTIVE: Reports improvement in abdominal pain today. Has had some ongoing n/v which has made drinking her prep for scope today difficult. Scheduled medications: ??? acetaminophen 650 mg Oral 4 times per day ??? amitriptyline 25 mg Oral Nightly at bedtime ??? docusate sodium 100 mg Oral BID ??? exemestane 25 mg Oral Daily with supper ??? insulin glargine 50 Units Subcutaneous QAM ??? insulin lispro 0-16 Units Subcutaneous 4 times per day ??? lisinopril 20 mg Oral Daily ??? oxybutynin 5 mg Oral BID ??? pantoprazole EC 40 mg Oral Daily ??? polyethylene glycol 34 g Oral Daily ??? rivaroxaban 20 mg Oral Daily ??? ropinirole 5 mg Oral Nightly at bedtime PRN medications: dextrose, dextrose, glucagon, hydrocodone-acetaminophen, ketorolac, ondansetron OBJECTIVE: Vitals: Blood pressure 112/71, pulse 66, temperature 97.8 ??F (36.6 ??C), temperature source Axillary, resp. rate 18, height 5' 1 (1.549 m), weight 131.5 kg (290 lb), SpO2 98 %., Body mass index is 54.8 kg/m??. Temp: [97.8 ??F (36.6 ??C)-98 ??F (36.7 ??C)] 97.8 ??F (36.6 ??C) Pulse: [63-82] 66 Resp: [16-18] 18 BP: (98-112)/(65-71) 112/71 Physical Exam: Physical Exam Constitutional: She is oriented to person, place, and time and well-developed, well-nourished, and in no distress. HENT: Head: Normocephalic and atraumatic. Cardiovascular: Normal rate, regular rhythm and normal heart sounds. Pulmonary/Chest: Effort normal. No respiratory distress. She has no wheezes. She has no rales. Breath sounds distant Abdominal: Soft. Bowel sounds are normal. She exhibits no distension. There is no tenderness. Thereis no rebound and no guarding. Neurological: She is alert and oriented to person, place, and time. Skin: Skin is warm and dry. I/O's: Intake/Output Summary (Last 24 hours) at 09/10/2018 0638 Last data filed at 09/10/2018 0320 Gross per 24 hour Intake 1490 ml Output -- Net 1490 ml Last 5 Recorded Weights 09/08/18 2254 Weight: 131.5 kg (290 lb) Labs: Recent Labs Lab 09/04/18191009/09/18 0050 WBC 11.4* 12.5* RBC 4.51 4.84 HGB 12.7 13.5 HCT 40.7 42.7 MCV 90.2 88.2 MCH 28.2 27.9 MCHC 31.2* 31.6* PLT 356 383 RDW 14.0 13.8 MPV 10.2 9.7 PERNEU 67.0 -- PERLYM 23.3 -- PERMON 6.3 -- LYMC 2.66 -- MONOC 0.72 -- EOSC 0.30 -- BASOC 0.04 -- DTYPE AUTOMATED DIFFERENTIAL MANUAL DIFFERENTIAL Recent Labs Lab 09/04/18202809/09/18 0050 NA 140 135* K 4.8 4.2 CL 105 102 CO2 29.3 28.7 AGAP 10.5 8.5 BUN 14 20* CR 0.94 0.93 BUNCREATININ 14.8 21.6 GFRNON 65* 66* GFR 75* 76* GLU 171* 191* CA 9.6 9.4 TP 8.3* 9.0* ALB 3.1* 3.6 TBIL 0.5 0.4 ALKP 91 102 AST 41* 20 ALT 29 26 No results for input(s): INR in the last 168 hours. Invalid input(s): PT No results for input(s): TROP, CPK, MB in the last 168 hours. No results for input(s): LACTICACID, PROCT in the last 168 hours. No results for input(s): PH, PCO2, PO2, H0HACBZLASAS, BICARBWB, BASEDEFICIT, BASEEXCESS in the [id number] hours. Cultures: Blood: No results found for this visit on 09/09/18 (from the past 168 hour(s)). Urine: No results found for this visit on 09/09/18 (from the past 168 hour(s)). Microbiology Results (last 14 days) Procedure Component Value Units Date/Time OCCULT BLOOD, FECES [[id number]] Order Status: No result Lab Status: No result Specimen: STOOL CULTURE URINE [[id number]] Collected: 09/09/18 0051 Order Status: Completed Lab Status: In process Updated: 09/09/18 0108 CULTURE URINE [[id number]] Collected: 09/04/18 1918 Order Status: Completed Lab Status: Final result Updated: 09/07/18 0933 Specimen: URINE, CLEAN CATCH Spec. Description URINE CLEAN CATCH Special Requests: NO SPECIAL REQUEST Culture Result: -- POLYMICROBIAL GROWTH CONSISTENT WITH NORMAL GENITAL YESENIA. SUSCEPTIBILITIES NOT ROUTINELY PERFORMED. CULTURE STOOL [[id number]] Collected: 08/31/18905 Order Status: Completed Lab Status: Final result Updated: 09/03/18 0839 Specimen: STOOL Spec. Description STOOL Special Requests: NO SPECIAL REQUEST Culture Result: NEGATIVE FOR SHIGA TOXIN 1 AND 2 Culture Result: NO ENTERIC PATHOGENS ISOLATED Culture Result: -- NOTE: STOOL CULTURES ARE ROUTINELY SCREENED FOR SALMONELLA,SHIGELLA,YERSINIA,AEROMONAS,PLESIOMONAS,CAMPYLOBA CTER,E.COLI 0157,OVERGROWTHS OF S.AUREUS,YEAST AND P. AERUGINOSA CRYPTO/GIARDIA AG, EIA STOOL [[id number]] Collected: 08/31/18905 Order Status: Completed Lab Status: Final result Updated: 08/31/18 1443 Specimen: STOOL GIARDIA ANTIGEN: NEGATIVE CRYPTOSPOR. ANTIGEN: NEGATIVE CLOSTRIDIUM DIFFICILE [[id number]] (Abnormal) Collected: 08/31/18905 Order Status: Completed Lab Status: Final result Updated: 08/31/18 1434 Specimen: STOOL MOLECULAR ASSAY -- UNACCEPTABLE SPECIMEN RECEIVED FOR TESTING. ONLY LIQUID STOOLS ARE ACCEPTABLE UNLESS ILEUS IS PRESENT. Comment: Successful Call: [id number] called 08/31/2018 02:34 PM to ROOM [id number] ([facility]/[place]) by [id number]. Read Back: Yes CULTURE, BACTERIA, BLOOD [[id number]] Collected: 05/09/19 2216 Order Status: Completed Lab Status: Final result Updated: 09/05/18 0830 Specimen: BLOOD Spec. Description BLOOD Special Requests: NO SPECIAL REQUEST Culture Result: NO GROWTH 6 DAYS CULTURE, BACTERIA, BLOOD [[id number]] Collected: 08/30/18 221 Order Status: Completed Lab Status: Final result Updated: 09/05/18 0830 Specimen: BLOOD Spec. Description BLOOD Special Requests: NO SPECIAL REQUEST Culture Result: NO GROWTH 6 DAYS OCCULT BLOOD, FECES [[id number]] Collected: 08/30/18 2135 Order Status: Completed Lab Status: Final result Updated: 08/30/18 2306 Specimen: STOOL OCCULT BLOOD, FECAL NEGATIVE CULTURE URINE [[id number]] Collected: 08/30/18 1502 Order Status: Completed Lab Status: Final result Updated: 08/31/18 1429 Specimen: URINE, CLEAN CATCH Spec. Description URINE CLEAN CATCH Special Requests: NO SPECIAL REQUEST Culture Result: -- POLYMICROBIAL GROWTH CONSISTENT WITH NORMAL GENITAL YESENIA. SUSCEPTIBILITIES NOT ROUTINELY PERFORMED. ASSESSMENT AND PLAN: Patient is a 63-year-old female with PMHx of type 2 DM, PE/DVT, breast cancer, hypertension, LUL, hypothyroidism admitted for abdominal pain. Abdominal pain: Acute. Unclear source of patient's pain as CT abdo/pelvis negative x 3 per pt and record review. DDx includeds gastroparesis, spasms, infective, Ulcer, GERD, gastroenteritis, or constipation.??Less likely UTI or Inflammatory but possible given mucous. Pt reports blood but FOBT negative last admission ?? -zofran q6h prn for nausea -NS at 150 cc/hr -Home Mcmechen and Morphine for breakthrough -Bowel regimen ordered -GI consulted, planning for upper and lower GI scope today ?? 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 Type 2 diabetes: - Continue Home Insulin of Lantus 50 ubnits q am - NPO sliding scale until procedure completed - place back on basal/bolus plus correctional after procedure. ?? Other chronic illnesses: continue Requip and Exemestane from ambulatory Diet: NPO for upper and lower scope today Fluids: NS @125ml/hr DVT Prophylaxis: anticoagulated on xarelto DISPOSITION: Pending results of upper and lower scope today Plan discussed with attending physician. MELITA FARAH MD Family Medicine, PGY-1 Cosigned by Kirit Stafford MD at 09/10/2018 1:39 PM CDT Associated attestation - Kirit Stafford MD - 09/10/2018 1:39 PM CDT Teaching Physician - I, KIRIT STAFFORD MD, performed an examination of the patient and discussed the management with the resident. I reviewed the Resident's note and agree with the findings and plan of care, except as I have documented below. * Brigitte Conde, PT - 09/09/2018 11:51 AM CDT 09/09/18 1100 Therapy [facility] RECEIVED P.T. EVAL ORDER AND REVIEWED EMR. PT ADMITTED WITH ABDOMINAL PAIN WITH UNCLEAR ETIOLOGY AT PRESENT. NOTED PT TO BE NPO WITH PLANS FOR EGD AND COLONOSCOPY. PT WARRANTS FURTHER MEDICAL WORK UP PRIOR TO INITIATING OUR SERVICES. CURRENT ORDER DCD. PLEASE REORDER ONCE PROCEDURES ARE COMPLETED AND MORE MEDICAL INFORMATION BECOMES AVAILABLE, * Gil Dawson MD - 09/09/2018 10:44 AM CDT Patient still complaining of persistent abdominal pain. Vitals: 09/09/18 0700 BP: Pulse: 82 Resp: 16 Temp: SpO2: 96% Gen: No acute distress, pleasant Cardiac: normal rate, regular rhythm, no murmurs Pulmonary: CTAB Abdominal exam: Soft. Nondistended. Mild tenderness to palpation throughout the abdomen. Assessment: Patient is a??63-year-old??female??with PMHx of type 2 diabetes, pulmonary embolism/DVT, breast cancer, low back pain on chronic narcotics, hypertension, obstructive sleep apnea, and hypothyroidism who presents with intractible abdominal pain and continued N/V. ?? Plan: Abdominal pain: Unclear source at this point. -GI consult: they are recommending upper and lower scope tomorrow -home norco/morphine -Miralax -toradol prn for pain -FOBT Cosigned by Kirit Stafford MD at 09/10/2018 8:15 AM CDT Associated attestation - Kirit Stafford MD - 09/10/2018 8:15 AM CDT Teaching Physician - I, KIRIT STAFFORD MD, performed an examination of the patient and discussed the management with the resident. I reviewed the Resident's note and agree with the findings and plan of care, except as I have documented below. documented in this encounter H&P Notes * Crissy Sheppard MD - 09/10/2018 5:17 PM CDT HISTORY AND PHYSICAL INTERVAL NOTE: I have reviewed Karly Marques History & Physical which was performed within the past 30 days. After examining Karly Marques, no change has occurred in the patient's condition since the H&P was completed. Informed Consent Discussion: Risks, benefits, alternatives as well as the consequences of not performing the surgery/procedure were discussed with the patient and/or family/personal sales and marketing representative. Questions were answered and the patient/family/personal sales and marketing representative verbalized understanding and desires to proceed. * Jonel Pabon DO - 09/09/2018 4:40 AM CDT History and Physical DATE: 09/09/2018 ID: [id number] Karly Marques CC: Abdominal pain HPI: Karly Marques is a 63-year-old right female with a past medical history of type 2 diabetes, pulmonary embolism/DVT, breast cancer, low back pain on chronic narcotics, hypertension, obstructive sleep apnea, and hypothyroidism who presents with abdominal pain. Her abdominal pain started 2 weeks ago. She was last admitted for this issue on 31 Aug 2018. She also has been seen at [facility], and again evaluated in our ED. She has now had 3 CT scans of her abdomen in that time. she was to see GI, but has yet to be able to set up an apt. Her abdominal pain has been accompanied with loose stools. She also notes mucus in the diarrhea. The abdominal pain is located in the center of her abd omen, above her belly button. She describes the pain as a constant/achy pain and up to 7/10 today. She says she had blood in her stool last admission. She also reports conitued nausea and vomiting. She had a couple of episodes of blood tinged vomit without coffe grounds. She has not been able to eat or drink much because of the nausea. She denies any fevers, chills, chest pain, shortness of breath, dysuria, recent travel, no new foods or new restaurants. She reports no sick contacts. REVIEW OF SYSTEMS: ROS see above PMH: Past Medical History: Diagnosis Date ??? Arthritis ??? Blood clot in vein ??? Breast cancer (CMS/HCC) ??? Cancer (CMS/HCC) ??? Diabetes mellitus (CMS/HCC) ??? Disease of thyroid gland ??? Hypertension ??? Kidney stones ??? Neuropathy ??? Restless leg syndrome ??? Spinal headache Has Bulging disc in lower back and Neck SURGICAL HISTORY: She has a past surgical history that includes Mastectomy; section; [place] arthroplasty; Hernia repair; and Cholecystectomy. FAMILY HISTORY: Her family history includes Aneurysm in her mother; COPD in her sister; Cancer in her brother, father, and sister; Depression in her sister; Diabetes in her mother; Heart Disease in her mother; Hyperlipidemia in her mother; Hypertension in her mother; Stroke in her mother. Social History: Social History Socioeconomic History ??? Marital status: Spouse name: Not on file ??? Number of children: Not on file ??? Years of education: Not on file ??? Highest education level: Not on file Occupational History ??? Not on file Social Needs ??? Financial resource strain: Not on file ??? Food insecurity: Worry: Not on file Inability: Not on file ??? Transportation needs: Medical: Not on file Non-medical: Not on file Tobacco Use ??? Smoking status: Former Smoker Last attempt to quit: 03/23/1977 Years since quittin.4 ??? Smokeless tobacco: Never Used Substance and Sexual Activity ??? Alcohol use: No ??? Drug use: No ??? Sexual activity: No Lifestyle ??? Physical activity: Days per week: Not on file Minutes per session: Not on file ??? Stress: Not on file Relationships ??? Social connections: Talks on phone: Not on file Gets together: Not on file Attends restorationist service: Not on file Active member of club or organization: Not on file Attends meetings of clubs or organizations: Not on file Relationship status: Not on file ??? Intimate partner violence: Fear of current or ex partner: Not on file Emotionally abused: Not on file Physically abused: Not on file Forced sexual activity: Not on file Other Topics Concern ??? Not on file Social History Narrative ??? Not on file ALLERGIES: Allergies Allergen Reactions ??? Ativan [Lorazepam] Hyperactive Aggrevates restless leg syndrome ??? Cephalosporins Anaphylaxis ??? Rocephin [Ceftriaxone] Shortness of Breath ??? Levofloxacin Hives ??? Oxycodone Vomiting ??? Reglan [Metoclopramide] Hyperactive ??? Trazodone Other (see comment) Shaky, restlessness, itching, throat swelling PCP: GERARDO HOFFMAN MD CODE STATUS: Code Status: Full Code In the ED, No CT or new imaging was given; supportive care and pain medications only (4mg Morphine IV). PHYSICAL EXAM: Vitals: 09/09/18 0101 BP: Pulse: 85 Resp: 20 Temp: SpO2: 96% Temp: [98.4 ??F (36.9 ??C)] 98.4 ??F (36.9 ??C) Pulse: [85-95] 85 Resp: [18-20] 20 BP: (145)/(95) 145/95 Last Recorded Weight 09/08/18 2254 Weight: 131.5 kg (290 lb) Body mass index is 54.8 kg/m??. Physical Exam Gen: NAD, pleasant HEENT: NC/AT. Cardiac: normal rate, regular rhythm, II/ murmur at left lower sternal border, no clicks, or rubs Pulmonary: CTAB. No increased work breathing. Abdomen: soft, mildly distended, obese. Positive bowel sounds. Moderate tenderness to palpation throughout. Pain is not localized. And difficult to preform 2/2 habitus Extremities: no peripheral edema. Neuro: alert. Normal speech. Skin: no rashes. Psych: normal mood and affect Admission on 09/09/2018 Component Date Value Ref Range Status ??? WBC 09/09/2018 12.5* 4.5 - 11.0 x10'3/uL Final ??? RBC 09/09/2018 4.84 4.20 - 5.40 x10'6/uL Final ??? HGB 09/09/2018 13.5 12.0 - 16.0 G/DL Final ??? HCT 09/09/2018 42.7 38.0 - 48.0 % Final ??? MCV 09/09/2018 88.2 80.0 - 94.0 FL Final ??? MCH 09/09/2018 27.9 27.0 - 31.0 PG Final ??? MCHC 09/09/2018 31.6* 32.0 - 36.0 G/DL Final ??? RDW 09/09/2018 13.8 11.5 - 14.5 % Final ??? PLT 09/09/2018 383 130 - 400 x10'3/uL Final ??? MPV 09/09/2018 9.7 9.3 - 12.2 FL Final ??? DIFFERENTIAL TYPE 09/09/2018 MANUAL DIFFERENTIAL Final ??? SEG NEUTROPHILS 09/09/2018 60 % Final ??? LYMPHOCYTES 09/09/2018 23 % Final ??? MONOCYTES 09/09/2018 13 % Final ??? EOSINOPHILS 09/09/2018 3 % Final ??? MYELOCYTES 09/09/2018 1 % Final ??? ABS. NEUTROPHIL COUNT 09/09/2018 7.50 1.80 - 7.70 x10'3/uL Final ??? ABS.LYMPHOCYTES CALCULATED 09/09/2018 2.88 1.00 - 4.80 x10'3/uL Final ??? ABS. MONOCYTES CALCULATED 09/09/2018 1.63* 0.24 - 0.86 x10'3/uL Final ??? ABS. EOSINOPHIL CALCULATED 09/09/2018 0.38* 0.04 - 0.36 x10'3/uL Final ??? ABS. MYELOCYTES 09/09/2018 0.13* 0.00 x10'3/uL Final ??? RBC MORPHOLOGY 09/09/2018 RBC MORPHOLOGY APPEARS NORMAL. SLIDE REVIEWED. Final ??? PLT EST. 09/09/2018 ADEQUATE Final ??? GLUCOSE 09/09/2018 191* 70 - 99 MG/DL Final ??? BUN 09/09/2018 20* 7 - 18 MG/DL Final ??? CREATININE 09/09/2018 0.93 0.55 - 1.02 MG/DL Final ??? SODIUM 09/09/2018 135* 136 - 145 MMOL/L Final ??? POTASSIUM 09/09/2018 4.2 3.5 - 5.1 MMOL/L Final ??? CHLORIDE 09/09/2018 102 100 - 108 MMOL/L Final ??? CO2 09/09/2018 28.7 21 - 32 MMOL/L Final ??? CALCIUM 09/09/2018 9.4 8.5 - 10.1 MG/DL Final ??? TOTAL BILIRUBIN 09/09/2018 0.4 0.2 - 1.2 MG/DL Final ??? TOTAL PROTEIN 09/09/2018 9.0* 6.4 - 8.2 G/DL Final ??? ALBUMIN 09/09/2018 3.6 3.4 - 5.0 G/DL Final ??? AST 09/09/2018 20 15 - 37 U/L Final ??? ALT 09/09/2018 26 14 - 55 U/L Final ??? ALK PHOS 09/09/2018 102 50 - 136 U/L Final ??? ANION GAP 09/09/2018 8.5 8 - 20 MMOL/L Final ??? BUN CREATININE RATIO 09/09/2018 21.6 6 - 26 Final ??? A/G RATIO 09/09/2018 0.7* 1.0 - 2.0 RATIO Final ? ? eGFR Non-Afr. Amer. 09/09/2018 66* >90 ML/MIN/1.73 M2 Final ? ? eGFR Afr. Amer. 09/09/2018 76* >90 ML/MIN/1.73 M2 Final Comment: NOTE: eGFR is not calculated for patients <18 years of age. This is an estimated GFR (CKD EPI) and should not be used for calculating drug doses. ??? LIPASE 09/09/2018 156 73 - 393 UNITS/L Final ??? Specimen Type 09/09/2018 URINE CLEAN CATCH Final ??? COLOR 09/09/2018 YELLOW Final ??? TRANSPARENCY 09/09/2018 CLEAR Final ??? Specific [place] (U) 09/09/2018 1.023 1.001 - 1.030 Final ??? U PH 09/09/2018 5.0 5.0 - 9.0 Final ??? LEUKOCYTE ESTERASE 09/09/2018 MODERATE* NEGATIVE Final ??? NITRITES 09/09/2018 NEGATIVE NEGATIVE Final ? ? PROTEIN, URINE 09/09/2018 NEGATIVE <30 MG/DL Final ??? URINE GLUCOSE 09/09/2018 NEGATIVE NEGATIVE MG/DL Final ??? U KETONES 09/09/2018 NEGATIVE NEGATIVE MG/DL Final ??? UROBILINOGEN 09/09/2018 NEGATIVE NEGATIVE MG/DL Final ??? Urine Bilirubin 09/09/2018 NEGATIVE NEGATIVE MG/DL Final ??? BLOOD 09/09/2018 MODERATE* NEGATIVE Final ? ? CULTURE & SENSITIVITY INDICATED? 09/09/2018 SPECIMEN SETUP FOR CULTURE Final ??? SQUAMOUS EPITHELIALS 09/09/2018 FEW /LPF Final ??? MUCUS 09/09/2018 RARE /LPF Final ? ? WBC/HPF 09/09/2018 22* <6 /HPF Final ? ? RBC/HPF 09/09/2018 28* <6 /HPF Final Cultures: Blood: No results found for this visit on 09/09/18 (from the past 168 hour(s)). Urine: No results found for this visit on 09/09/18 (from the past 168 hour(s)). EKG: No results found for this visit on 09/09/18. IMAGING: Radiology Results (Last 30 days) 09/04/[address] ABD+PEL W IV CON ONLY Final result 08/30/[address] ABD+PEL W IV CON ONLY Final result Impression: IMPRESSION: No acute appearing abdominal or pelvic abnormalities identified. 08/30/18 1633 XR CHEST PORTABLE Final result Impression: Impression: Borderline cardiomegaly. No acute cardiopulmonary disease process. SSMENT AND PLAN: CHRONIC STABLE CONDITIONS & MEDICATIONS CONTINUED Patient is a 63-year-old female with PMHx of type 2 diabetes, pulmonary embolism/DVT, breast cancer, low back pain on chronic narcotics, hypertension, obstructive sleep apnea, and hypothyroidism who presents with intractible abdominal pain and continued N/V with hx of possible upper and lower GI bleed. Abdominal pain: Acute. Present on admission. Unclear source of patient's pain as CT abdo/pelvis negative x 3 per ptand record review. DDx includeds gastroparesis, spasms, infective, Ulcer, GERD, or continued gastroenteritis. Less likely UTI or Inflammatory but possible given mucous. Pt reports blood but FOBT negative last admission -admit to family medicine service for OBs, secondary to inability to tolerate PO and intractible pain -zofran for nausea -NS at 150 cc/hr -Home Mcmechen and Morphine for breakthrough -Bowel regimine ordered -GI consult -stool cultures, stool OP negative last admission -FOBT negative last admission; will repeat. -consider CTA abdomen if pain persistent and exam concerning for mesenteric ischemia -GI scope possible as inpatient as patient is due for colon cancer screening and firm mass palpatedon rectal exam last admission. She was in the process of setting up. -F/U urine culture PE and DVT Hx: - Hx of PE and DVT 2/2 chemo and breast cancer - Contiue Xarelto Endocrine: - Continue Home Insulin of Lantus 50 ubnits q am - Lisr 20 u q am with breakfast - Held - 22 units of Lispro with dinner - Held - SSI - Hypoglycemia protocol added Other chronic illnesses: continue Requip and Exemestane from ambulatory #FEN: - NS@ 100ml/hr - Replete electrolytes prn - NPO diet #DVT PPX: Xarelto until proven to be bleeding Consults: GI Dispo: Pending further work up and eval JONEL PABON DO PGY-3 Cosigned by Kirit Stafford MD at 09/09/2018 1:16 PM CDT Associated attestation - Kirit Stafford MD - 09/09/2018 1:16 PM CDT Teaching Physician - I, KIRIT STAFFORD MD, performed an examination of the patient and discussed the management with the resident. I reviewed the Resident's note and agree with the findings and plan of care, except as I have documented below. documented in this encounter Consult Notes * Divya Wooten RD - 09/10/2018 8:45 AM CDT A: CHART REVIEWED FOR MST SCORE 2 ( 2-13# WEIGHT LOSS WITH DECREASED APPETITE). MEDICAL RECORDS REFLECT 2-3% WEIGHT LOSS IN LAST MONTH ( 2/2 TO RECENT ABD PAIN WHEN EATING). NO SIGNIFICANT WEIGHT LOSS OVER ALL WITH WEIGHT 1 YEAR AGO 4# LESS THAN PRESENT WEIGHT. EST. CALORIE NEEDS: 158 JOY(12 Joy/kg) EST. PROTEIN NEEDS; 68-75 GM PROTEIN (1-1.1 GM PROTEIN/ADAJBWKG) REVIEWED LABS AND MEDICATIONS. D: PES=INADEQUATE ORAL INTAKE RT ABD PAIN WHEN EATING AEB MD NOTES AND RECENT 2- 3% WEIGHT LOSS. I: GOALS: RECOMMEND OFFERING ENSURE CLEAR WITH ALL CL LIQUID MEALS. M/E; PT AT HIGH NUTRITION RISK. F/U 09/13/18. GOALS: DIET ADVANCED AND INTAKE > 70%. * Crissy Sheppard MD - 09/09/2018 11:37 AM CDTAssociated Order(s): IP CONSULT TO GASTROENTEROLOGY GASTROENTEROLOGY CONSULT 09/09/2018 11:37 AM Reason for Consult: Abdominal pain of unknown origin Chief Complaint: Same History of Present Illness: Karly Marques is a 63-year-old female with over 2 weeks of a severe abdominal pain of unknown origin. Food and meals definitely make it worse. Pain can last all day long. It is quite severe she says. Been to several hospitals now. She went to [facility] and a CT scan of the abdomen was performed reportedly negative. She has had 2 CT scans here both which are reported negative. No diarrhea. She thinks she had a colonoscopy 1 year ago. Patient reports loss of weight of 5 pounds recently. She has a history significant for breast cancer 4 years ago. She had surgery as well as radiationbut no chemo. Reportedly was stage II breast cancer but was also in the lymph nodes. She could not get chemotherapy because of multiple concurrent infections at the time. She had a previous cholecystectomy. The abdominal pain is mostly periumbilical central in location. She also has a history of DVTs and pulmonary embolisms and is on lifelong anticoagulants with Xarelto for one year currently. Patient Active Problem List Diagnosis ??? Bronchitis ??? Hypertension ??? Morbid obesity with BMI of 50.0-59.9, adult (CMS/HCC) ??? Sepsis (CMS/HCC) ??? Type 2 diabetes mellitus (CMS/HCC) ??? LUL (obstructive sleep apnea) ??? RLS (restless legs syndrome) ??? History of DVT (deep vein thrombosis) ??? ACS (acute coronary syndrome) (CMS/HCC) ??? Epigastric pain ??? PE (pulmonary thromboembolism) (CMS/HCC) ??? Bilateral malignant neoplasm of breast in female (CMS/HCC) ??? Diverticulosis ??? Pain in the abdomen ??? Low back pain ??? Abdominal pain Past Medical History: Diagnosis Date ??? Arthritis ??? Blood clot in vein ??? Breast cancer (CMS/HCC) ??? Cancer (CMS/HCC) ??? Diabetes mellitus (CMS/HCC) ??? Disease of thyroid gland ??? Hypertension ??? Kidney stones ??? Neuropathy ??? Restless leg syndrome ??? Spinal headache Has Bulging disc in lower back and Neck Past Surgical History: Procedure Laterality Date ??? SECTION ??? CHOLECYSTECTOMY ??? HERNIA REPAIR ??? MASTECTOMY ??? TOTAL KNEE ARTHROPLASTY Family History Problem Relation Name Age of Onset ??? Aneurysm Mother ??? Diabetes Mother ??? Heart Disease Mother ??? Hyperlipidemia Mother ??? Hypertension Mother ??? Stroke Mother ??? Cancer Father ??? Cancer Sister ??? COPD Sister ??? Depression Sister ??? Cancer Brother Social History Socioeconomic History ??? Marital status: Spouse name: Not on file ??? Number of children: Not on file ??? Years of education: Not on file ??? Highest education level: Not on file Occupational History ??? Not on file Social Needs ??? Financial resource strain: Not on file ??? Food insecurity: Worry: Not on file Inability: Not on file ??? Transportation needs: Medical: Not on file Non-medical: Not on file Tobacco Use ??? Smoking status: Former Smoker Last attempt to quit: 03/23/1977 Years since quittin.4 ??? Smokeless tobacco: Never Used Substance and Sexual Activity ??? Alcohol use: No ??? Drug use: No ??? Sexual activity: No Lifestyle ??? Physical activity: Days per week: Not on file Minutes per session: Not on file ??? Stress: Not on file Relationships ??? Social connections: Talks on phone: Not on file Gets together: Not on file Attends restorationist service: Not on file Active member of club or organization: Not on file Attends meetings of clubs or organizations: Not on file Relationship status: Not on file ??? Intimate partner violence: Fear of current or ex partner: Not on file Emotionally abused: Not on file Physically abused: Not on file Forced sexual activity: Not on file Other Topics Concern ??? Not on file Social History Narrative ??? Not on file ??? acetaminophen 650 mg Oral 4 times per day ??? amitriptyline 25 mg Oral Nightly at bedtime ??? docusate sodium 100 mg Oral BID ??? exemestane 25 mg Oral Daily with supper ??? insulin glargine 50 Units Subcutaneous QAM ??? insulin lispro 0-16 Units Subcutaneous 4 times per day ??? lisinopril 20 mg Oral Daily ??? oxybutynin 5 mg Oral BID ??? pantoprazole EC 40 mg Oral Daily ??? polyethylene glycol 34 g Oral Daily ??? rivaroxaban 20 mg Oral Daily ??? ropinirole 5 mg Oral Nightly at bedtime Allergies Allergen Reactions ??? Ativan [Lorazepam] Hyperactive Aggrevates restless leg syndrome ??? Cephalosporins Anaphylaxis ??? Rocephin [Ceftriaxone] Shortness of Breath ??? Levofloxacin Hives ??? Oxycodone Vomiting ??? Reglan [Metoclopramide] Hyperactive ??? Trazodone Other (see comment) Shaky, restlessness, itching, throat swelling REVIEW OF SYSTEMS: General: no fever, chills, malaise, fatigue, weight loss or gain. HEENT: no acute changes in vision or hearing Respiratory: no shortness of breath, cough, sputum production, hemoptysis Cardiovascular: no chest pain, palpitations, orthopnea Gastrointestinal: as per HPI Genitourinary: no dysuria, hematuria, incontinence Musculoskeletal: no extremity edema, myalgia. Neuro: no dizziness, headache, seizures Hematology: no easy bruising, bleeding Skin: no new skin rashes or lesions. PHYSICAL EXAM: Filed Vitals: 09/08/18 2254 09/09/18 0101 09/09/18 0500 09/09/18 0700 BP: (!) 145/95 (!) 140/95 Pulse: 95 85 79 82 Resp: Temp: 98.4 ??F (36.9 ??C) 97.8 ??F (36.6 ??C) TempSrc: Temporal SpO2: 97% 96% 96% 96% Weight: 131.5 kg (290 lb) Height: 5' 1 (1.549 m) Wt Readings from Last 3 Encounters: 09/08/18 131.5 kg (290 lb) 09/04/18 133.4 kg (294 lb) 08/30/18 135.4 kg (298 lb 8.1 oz) General: pleasant, no distress HEENT: conjunctivae/corneas clear. PERRL. Neck: supple, symmetrical, trachea midline Lungs: clear to auscultation bilaterally Heart: regular rate and rhythm, normal s1-s2 Abdomen: Soft, Mildly tender, non-distended, bowel sounds normal, no palpable masses Rectal: deferred Extremities: no edema, palpable pulses Skin: no obvious rashes, no jaundice Neuro: Alert, oriented, cooperative Labs: Recent Labs Lab 09/04/18 19109/09/18 0050 WBC 11.4* 12.5* HGB 12.7 13.5 MCV 90.2 88.2 PLT 356 383 Recent Labs Lab 09/04/18202809/09/18 0050 NA 140 135* K 4.8 4.2 CL 105 102 CO2 29.3 28.7 BUN 14 20* Recent Labs Lab 09/04/18202809/09/18 0050 AST 41* 20 ALT 29 26 ALB 3.1* 3.6 ? Imaging/Procedures: Multiple CT scans are performed. Previous Endoscopy: Reports colonoscopy 1 year ago, I have no records of this. Assessment and Plan: Central abdominal pain especially worse after meals. History of breast cancer with radiation but nochemo. History of positive lymph nodes in the past for breast cancer. In this scenario, there is a concern for possibility of breast cancer to the small bowel or to the peritoneum. PLAN EGD and colonoscopy. If these are negative will order a small bowel studies. She may need a PET CT scan. The procedural risks, benefits, alternatives, including the risks of complications of bleeding, infection, bowel injury or perforation, anesthesia related risks, but not limited to the above were explained and discussed fully with the patient and all questions answered. The complications could leadto possible hospitalization, antibiotics and surgery and even remote chance of . The patient verbalizes understanding and wishes to proceed. Thank you for this consult. Please do not hesitate to contact us with further questions. CRISSY SHEPPARD MD documented in this encounter OR Notes * Op Note - Crissy Sheppard MD - 09/10/2018 6:27 PM CDT [facility] OpNote EGD , COLONOSCOPY Procedure Note Karly Marques 09/09/2018 - 09/10/2018 1450 Procedure(s) (LRB): EGD (N/A) COLONOSCOPY (N/A) Surgeon(s): Crissy Sheppard MD Staff: GI Nurse: Abiola Nur RN sole conditioner: Sarah Cobos Anesthesia: General Anesthesiologist: Nehemias Brown MD SUPERVISOR [employer] PAPER COATING: Adriana Arias CRNA Pre-Op Diagnosis: abdominal pain Post-Op Diagnosis: Negative EGD. Essentially negative colonoscopy. Procedure Description: For consent obtained earlier. Patient brought to the OR and placed in supinelateral decubitus position and sedated under MAC anesthesia. EGD. 190 gastroscope lubricant inserted into the hypopharynx and advanced by direct technique. Upper middle distal esophagus looked normal stomach distended well. Retroflexed views of the cardia fundus angularis revealed no abnormalities antrum looked normal the first and second parts of the duodenum looked normal. Colonoscopy. Rectal exam negative PCF 190 colonoscope lubricant inserted into the rectum and advanced to the cecum. Bowel prep was very good. Cecum was identified by the ileocecal valve and the appendiceal orifice. Cecum ascending colon transverse colon all looks normal grossly. Descending and sigmoid contained moderate diverticulosis rectum looked normal. Retroflexion revealed mild hemorrhoids. Findings: Negative upper endoscopy. Grossly normal colonoscopy. Bowel prep was slightly suboptimal and the patient was extremely fidgety during the examination which made visualization difficult. Plan: Etiology of the abdominal pain is unclear. She will need further evaluation with small bowel x-rays and possible PET scan. Complications: None Estimated Blood Loss: * No values recorded between 09/10/2018 6:08 PM and 09/10/2018 6:28 PM * Specimens:* No orders in the log * CRISSY SHEPPARD MD Date: 09/10/2018 Time: 6:28 PM documented in this encounter ED Notes * Tucker Wilks RN - 09/09/2018 3:34 AM CDT See downtime charting. TUCKER WILKS RN * Colten Reilly MD - 09/09/2018 12:57 AM CDT Chief Complaint Chief Complaint Patient presents with ??? Abdominal Pain ??? Vomiting History of Present Illness Karly Marques is a 63-year-old female who presents to ED for evaluation of abdominal pain and vomiting x 2 weeks. Pt reports abdominal pain is now radiating laterally and upwards towards ribs. Reports vomit was blood tinged today. Also complains of lightheadedness. Medical History ALLERGIES: Allergies Allergen Reactions ??? [...] Give with food 08/09/17 Yes Doc Abstract hydrocodone-acetaminophen 7.5-325 MG tablet Take 1-2 tablets by mouth every 4 (four) hours as needed for Pain. Yes Doc Abstract insulin glargine (LANTUS SOLOSTAR) [...] Take 20 mg by mouth every evening. 08/08/17 Yes Doc Abstract PAST MEDICAL HISTORY: Past [...] Laterality Date ??? SECTION ??? CHOLECYSTECTOMY ??? HERNIA REPAIR ??? MASTECTOMY ??? TOTAL [...] chills and fever. HENT: Negative for ear pain and hearing loss. Respiratory: Negative for cough. Cardiovascular: Negative for chest pain. Gastrointestinal: Positive for abdominal pain and vomiting. Negative for nausea. Genitourinary: Negative for dysuria. Musculoskeletal: Negative for back pain, myalgias and neck pain. Skin: Negative for rash. Neurological: Positive for light-headedness. Negative for headaches. Physical Exam Filed Vitals: 09/08/18 2254 09/09/18 0101 BP: (!) 145/95 Pulse: 95 85 Resp: 18 20 Temp: 98.4 ??F (36.9 ??C) TempSrc: Temporal SpO2: 97% 96% Weight: 131.5 kg (290 lb) Height: 5' 1 (1.549 m) Physical Exam Constitutional: She is oriented to person, place, and time. She appears well- developed and well-nourished. No distress. HENT: Head: Normocephalic and atraumatic. Eyes: EOM are normal. Neck: Normal range of motion. Neck supple. No tracheal deviation present. Cardiovascular: Normal rate, regular rhythm, normal heart sounds and intact distal pulses. Exam reveals no gallop and no friction rub. No murmur heard. Pulmonary/Chest: Effort normal and breath sounds normal. No stridor. No respiratory distress. She has no wheezes. She has no rales. She exhibits no tenderness. Abdominal: Soft. She exhibits no distension. There is no tenderness. There is no rebound and no guarding. Musculoskeletal: Normal range of motion. She exhibits no edema. Neurological: She is alert and oriented to person, place, and time. Skin: Skin is warm and dry. She is not diaphoretic. Psychiatric: She has a normal mood and affect. Her behavior is normal. Judgment normal. Nursing note and vitals reviewed. Diagnostic Studies / Procedures ELECTROCARDIOGRAMS: No results found for this visit on 09/09/18. LABORATORY STUDIES: Results for orders placed or performed during the hospital encounter of 09/09/18 CBC W/DIFF AUTOMATED Result Value Ref Range WBC 12.5 (H) 4.5 - 11.0 x10'3/uL RBC 4.84 4.20 - 5.40 x10'6/uL HGB 13.5 12.0 - 16.0 G/DL HCT 42.7 38.0 - 48.0 % MCV 88.2 80.0 - 94.0 FL MCH 27.9 27.0 - 31.0 PG MCHC 31.6 (L) 32.0 - 36.0 G/DL RDW 13.8 11.5 - 14.5 % PLT 383 130 - 400 x10'3/uL MPV 9.7 9.3 - 12.2 FL DIFFERENTIAL TYPE MANUAL DIFFERENTIAL SEG NEUTROPHILS 60 % LYMPHOCYTES 23 % MONOCYTES 13 % EOSINOPHILS 3 % MYELOCYTES 1 % ABS. NEUTROPHIL COUNT 7.50 1.80 - 7.70 x10'3/uL ABS.LYMPHOCYTES CALCULATED 2.88 1.00 - 4.80 x10'3/uL ABS. MONOCYTES CALCULATED 1.63 (H) 0.24 - 0.86 x10'3/uL ABS. EOSINOPHIL CALCULATED 0.38 (H) 0.04 - 0.36 x10'3/uL ABS. MYELOCYTES 0.13 (H) 0.00 x10'3/uL RBC MORPHOLOGY RBC MORPHOLOGY APPEARS NORMAL. SLIDE REVIEWED. PLT EST. ADEQUATE COMPREHENSIVE METABOLIC PANEL Result Value Ref Range GLUCOSE 191 (H) 70 - 99 MG/DL BUN 20 (H) 7 - 18 MG/DL CREATININE 0.93 0.55 - 1.02 MG/DL SODIUM 135 (L) 136 - 145 MMOL/L POTASSIUM 4.2 3.5 - 5.1 MMOL/L CHLORIDE 102 100 - 108 MMOL/L CO2 28.7 21 - 32 MMOL/L CALCIUM 9.4 8.5 - 10.1 MG/DL TOTAL BILIRUBIN 0.4 0.2 - 1.2 MG/DL TOTAL PROTEIN 9.0 (H) 6.4 - 8.2 G/DL ALBUMIN 3.6 3.4 - 5.0 G/DL AST 20 15 - 37 U/L ALT 26 14 - 55 U/L ALK PHOS 102 50 - 136 U/L ANION GAP 8.5 8 - 20 MMOL/L BUN CREATININE RATIO 21.6 6 - 26 A/G RATIO 0.7 (L) 1.0 - 2.0 RATIO eGFR Non-Afr. Amer. 66 (L) >90 ML/MIN/1.73 M2 eGFR Afr. Amer. 76 (L) >90 ML/MIN/1.73 M2 LIPASE Result Value Ref Range LIPASE 156 73 - 393 UNITS/L URINALYSIS Result Value Ref Range Specimen Type URINE CLEAN CATCH COLOR YELLOW TRANSPARENCY CLEAR Specific [place] (U) 1.023 1.001 - 1.030 U PH 5.0 5.0 - 9.0 LEUKOCYTE ESTERASE MODERATE (A) NEGATIVE NITRITES NEGATIVE NEGATIVE PROTEIN, URINE NEGATIVE <30 MG/DL URINE GLUCOSE NEGATIVE NEGATIVE MG/DL U KETONES NEGATIVE NEGATIVE MG/DL UROBILINOGEN NEGATIVE NEGATIVE MG/DL Urine Bilirubin NEGATIVE NEGATIVE MG/DL BLOOD MODERATE (A) NEGATIVE CULTURE & SENSITIVITY INDICATED? SPECIMEN SETUP FOR CULTURE SQUAMOUS EPITHELIALS FEW /LPF MUCUS RARE /LPF WBC/HPF 22 (H) <6 /HPF RBC/HPF 28 (H) <6 /HPF IMAGING STUDIES No orders to display ED Course / Medical Decision Making MDM Diagnosis management comments: 63-year-old female presents w/ abdominal pain, vomiting, and lightheadedness. Pulse oximetry interpreted by me: 97% on room air. Impression normal. The patient is a 63-year-old female who has a past medical history of breast cancer, kidney stones,diabetes, hypothyroid who presents to the emergency department today due to abdominal pain. Third evaluation in the emergency department this week with [address] scans and negative work-ups. Unable to see gastroenterology. Differential includes but is not limited to gastric outlet obstruction, gastritis, no concern for bowel obstruction. Will give medications for the pain, will hold offon CT scan of the abdomen and pelvis given multiple recent CT scans. Will bring in for failure of outpatient management and evaluation by GI. Clinical Impression Abdominal pain (Primary) Disposition: Admit I, Bonnie Candelario, acting as a scribe, am personally taking down the notes in the presence of Dr. Colten Reilly MD. Take no action on this note until reviewed and authenticated by the physician. Colten Reilly MD 09/09/18 0331 * Maira Bocanegra RN - 09/08/2018 10:52 PM CDT Patient ambulatory to triage with abdominal pain and vomiting. Patient has been here a couple of times recently for similar symptoms.Patient reports the abdominal pain is increasing. She states she is unable to keep anything down. Patient reports some bright red blood in her emesis this evening. documented in this encounter Plan of Treatment Scheduled Orders Name Type Priority Associated Diagnoses Orde r Schedule Case request operating room: EGD, COLONOSCOPY Case Request Routine Once for 1 Occurrences starting 09/09/2018 until 09/09/2018 Scheduled Referrals Name Type Priority Associated Diagnoses Orde r Schedule Ambulatory referral to Gastroenterology Referral Routine Abdominal pain Ordered: 09/11/2018 documented as of this encounter Procedures Procedure Name Priority Date/Time Associated Diagnosis Comments POCT GLUCOSE - SAVAGE DOCKED DEVICE Routine 09/11/2018 4:31 PM CDT POCT GLUCOSE - SAVAGE DOCKED DEVICE Routine 09/11/2018 11:35 AM CDT XR SMALL BOWEL Today 09/11/2018 11:08 AM CDT POCT GLUCOSE - SAVAGE DOCKED DEVICE Routine 09/11/2018 6:52 AM CDT COMPREHENSIVE METABOLIC PANEL Routine 09/11/2018 5:19 AM CDT CBC W/DIFF AUTOMATED Routine 09/11/2018 5:19 AM CDT POCT GLUCOSE - SAVAGE DOCKED DEVICE Routine 09/11/2018 12:13 AM CDT POCT GLUCOSE - SAVAGE DOCKED DEVICE Routine 09/10/2018 8:29 PM CDT COLONOSCOPY 09/10/2018 6:05 PM CDT abdominal pain EGD 09/10/2018 6:05 PM CDT abdominal pain POCT GLUCOSE - SAVAGE DOCKED DEVICE Routine 09/10/2018 4:19 PM CDT POCT GLUCOSE - SAVAGE DOCKED DEVICE Routine 09/10/2018 12:24 PM CDT HEMOGLOBIN, GLYCOSYLATED Routine 09/10/2018 5:57 AM CDT COMPREHENSIVE METABOLIC PANEL Routine 09/10/2018 5:57 AM CDT CBC W/DIFF AUTOMATED Routine 09/10/2018 5:57 AM CDT POCT GLUCOSE - SAVAGE DOCKED DEVICE Routine 09/10/2018 5:37 AM CDT POCT GLUCOSE - SAVAGE DOCKED DEVICE Routine 09/09/2018 9:55 PM CDT POCT GLUCOSE - SAVAGE DOCKED DEVICE Routine 09/09/2018 5:18 PM CDT POCT GLUCOSE - SAVAGE DOCKED DEVICE Routine 09/09/2018 12:02 PM CDT COLONOSCOPY Routine 09/09/2018 11:55 AM CDT EGD Routine 09/09/2018 11:55 AM CDT POCT GLUCOSE - SAVAGE DOCKED DEVICE Routine 09/09/2018 6:28 AM CDT URINE BACTERIA CULTURE Routine 9 12:51 AM CDT URINALYSIS STAT 09/09/2018 12:50 AM CDT COMPREHENSIVE METABOLIC PANEL STAT 09/09/2018 12:50 AM CDT CBC W/DIFF AUTOMATED STAT 09/09/2018 12:50 AM CDT LIPASE STAT 09/09/2018 12:50 AM CDT documented in this encounter Results * (ABNORMAL) POCT glucose (09/11/2018 4:31 PM CDT) GLUCOSE POC 127(H) 70 - 99 mg/dL 09/11/2018 4:39 PM CDT [facility] ORDERS INTERFACE 09/11/2018 4:31 PM CDT us Kirit Stafford MD POCT ORDERABLES - DEVICE Deann l Result [facility] ORDERS INTERFACE US * (ABNORMAL) POCT glucose (09/11/2018 11:35 AM CDT) GLUCOSE POC 137(H) 70 - 99 mg/dL 09/11/2018 11:38 AM CDT [facility] ORDERS INTERFACE 09/11/2018 11:3 5 AM CDT us Kirit Stafford MD POCT ORDERABLES - DEVICE Deann bowman Result [facility] LAB ORDERS INTERFACE US * XR SMALL BOWEL (09/11/2018 11:08 AM CDT) Anatomical Region Laterality Modality Abdomen, Pelvis Radiographic Lizeth ging 09/11/2018 3:37 PM CDT Impressions 09/11/2018 3:42 PM CDT IMPRESSION: 1. Upper limits of normal to slightly slowed transit time of oral contrast to the colon without findings of bowel obstruction. 2. No extraluminal contrast or free intraperitoneal air. 3. No abnormal strictures or masslike lesions involving the small bowel. Narrative 09/11/2018 3:42 PM CDT Examination: XR SMALL BOWEL Exam time: 09/11/2018 11:08 AM Clinical history: Abdominal pain. Comparison: CT 09/04/2018. Technique: Underwriting Manager images of the abdomen were obtained. The patient was then given oral contrast to drink and successive images of the abdomen were obtained at 15, 30, 60, 90, 120 and 150 minutes. Findings: There is a nonobstructive bowel gas pattern. A mild amount stool density is seen within the colon. No free intraperitoneal air is seen. Cholecystectomy clips and hernia repair clips are noted. Oral contrast is seen within the stomach and small bowel. No abnormal strictures or intraluminal filling defects or masslike lesion noted. No extraluminal contrast is appreciated. The small bowel demonstrates a normal fold pattern. No tethered loops are noted. Contrast is seen within the colon at approximately 2 hours and 30 minutes, which is at the upper limits of normal to slightly slow transit time. No evidence of bowel obstruction. Procedure Note Melvin Lombardi MD - 09/11/2018 Examination: XR SMALL BOWEL Exam time: 09/11/2018 11:08 AM Clinical history: Abdominal pain. Comparison: CT 09/04/2018. Technique: Underwriting Manager images of the abdomen were obtained. The patient wasthen given oral contrast to drink and successive images of the abdomen were obtained at 15, 30, 60, 90, 120 and 150 minutes. Findings: There is a nonobstructive bowel gas pattern. A mild amount stool densityis seen within the colon. No free intraperitoneal air is seen.Cholecystectomy clips and hernia repair clips are noted. Oral contrast is seen withinthe stomach and small bowel. No abnormal strictures or intraluminal filling defects or masslike lesion noted. No extraluminal contrast isappreciated. The small bowel demonstrates a normal fold pattern. No tethered loopsare noted. Contrast is seen within the colon at approximately 2 hours and 30 minutes, which is at the upper limits of normal to slightly slow transit time. No evidence of bowel obstruction. IMPRESSION: 1. Upper limits of normal to slightly slowed transit time of oralcontrast to the colon without findings of bowel obstruction. 2. No extraluminal contrast or free intraperitoneal air. 3. No abnormal strictures or masslike lesions involving the small bowel. Crissy Sheppard MD FLUOROSCOPY Final Result * (ABNORMAL) POCT glucose (09/11/2018 6:52 AM CDT) Pathologist [facility] GLUCOSE POC 188(H) 70 - 99 mg/dL 09/11/2018 8:01 AM CDT [facility] ORDERS INTERFACE 09/11/2018 6:52 AM CDT Kirit Stafford MD POCT ORDERABLES - DEVICE Deann l Result [facility] ORDERS INTERFACE US * (ABNORMAL) CBC W/DIFF AUTOMATED (09/11/2018 5:19 AM CDT) WBC 9.5 4.5 - 11.0 x10'3/uL 09/11/2018 6:09 AM CDT [facility] RBC 3.75(L) 4.20 - 5.40 x10'6/uL 09/11/2018 6:09 AM CDT [facility] HGB 10.5(L) 12.0 - 16.0 G/DL 09/11/2018 6:09 AM CDT [facility] HCT 33.9(L) 38.0 - 48.0 % 09/11/2018 6:09 AM CDT [facility] MCV 90.4 80.0 - 94.0 FL 09/11/2018 6:09 AM CDT [facility] MCH 28.0 27.0 - 31.0 PG 09/11/2018 6:09 AM CDT [facility] MCHC 31.0(L) 32.0 - 36.0 G/DL 09/11/2018 6:09 AM CDT [facility] RDW 14.1 11.5 - 14.5 % 09/11/2018 6:09 AM CDT [facility] PLT 272 130 - 400 x10'3/uL 09/11/2018 6:09 AM CDT [facility] MPV 10.1 9.3 - 12.2 FL 09/11/2018 6:09 AM CDT [facility] DIFFERENTIAL TYPE AUTOMATED DIFFERENTIAL 09/11/2018 6:09 AM CDT [facility] NEUTROPHILS % 62.0 % 09/11/2018 6:09 AM T [facility] LYMPHOCYTES % 25.3 % 09/11/2018 6:09 AM CDT [facility] MONOCYTES % 8.6 % 09/11/2018 6:09 AM CDT [facility] EOSINOPHILS 3.4 % 09/11/2018 6:09 AM CDT [facility] BASOPHILS 0.4 % 09/11/2018 6:09 AM T [facility] IMMATURE GRANS % 0.3 % 09/12/19 6:09 AM CDT [facility] ABS. NEUTROPHILS TOTAL 5.92 1.80 - 7.70 x10'3/uL 09/11/2018 6:09 AM CDT [facility] ABS. LYMPHOCYTES 2.41 1.00 - 4.80 x10'3/uL 09/11/2018 6:09 AM CDT [facility] ABS. MONOCYTES 0.82 0.24 - 0.86 x10'3/uL 09/11/2018 6:09 AM CDT [facility] ABS. EOSINOPHILS 0.32 0.04 - 0.36 x10'3/uL 09/11/2018 6:09 AM CDT [facility] ABS. BASOPHILS 0.04 0.01 - 0.08 x10'3/uL 09/11/2018 6:09 AM CDT [facility] ABS. IMMATURE GRANULOCYTES 0.03 0.00 - 0.49 x10'3/uL 09/11/2018 6:09 AM CDT [facility] 09/11/2018 5:19 AM CDT us Gil Dawson MD LABORATORY Final Result [facility] [address] [place] [address], [place] [phone] * (ABNORMAL) COMPREHENSIVE METABOLIC PANEL (09/11/2018 5:19 AM CDT) [facility] Signature GLUCOSE 190(H) 70 - 99 MG/DL 09/11/2018 6:56 AM CDT [facility] BUN 17 7 - 18 MG/DL 09/11/2018 6:56 AM CDT [facility] CREATININE S/P/B 0.85 0.55 - 1.02 MG/DL 09/11/2018 6:56 AM CDT [facility] SODIUM S/P/B 141 136 - 145 MMOL/L 09/11/2018 6:56 AM CDT [facility] POTASSIUM S/P/B 4.2 3.5 - 5.1 MMOL/L 09/11/2018 6:56 AM T [facility] CHLORIDE S/P/B 109(H) 100 - 108 MMOL/L 09/11/2018 6:56 AM T [facility] CO2 26.6 21 - 32 MMOL/L 09/11/2018 6:56 AM T [facility] CALCIUM S/P/B 8.7 8.5 - 10.1 MG/DL 09/11/2018 6:56 AM T [facility] BILIRUBIN TOTAL S/P/B 0.4 0.2 - 1.2 MG/DL 09/11/2018 6:56 AM T [facility] TOTAL PROTEIN S/P/B 7.0 6.4 - 8.2 G/DL 09/11/2018 6:56 AM T [facility] ALBUMIN S/P/B 2.8(L) 3.4 - 5.0 G/DL 09/11/2018 6:56 AM T [facility] AST 14(L) 15 - 37 U/L 09/11/2018 6:56 AM T [facility] ALT 22 14 - 55 U/L 09/11/2018 6:56 AM T [facility] ALKALINE PHOSPHATASE S/P/B 85 50 - 136 U/L 09/11/2018 6:56 AM T [facility] ANION GAP 9.6 8 - 20 MMOL/L 09/11/2018 6:56 AM T [facility] BUN CREATININE RATIO 20.1 6 - 26 09/11/2018 6:56 AM [facility] A/G RATIO 0.7(L) 1.0 - 2.0 RATIO 09/11/2018 6:56 AM T [facility] EGFR NON-AFR. AMER. 73(L) >90 ML/MIN/1.7 3 M2 09/11/2018 6:56 AM CDT [facility] EGFR AFR. AMER. 85(L) >90 ML/MIN/1.7 3 M2 09/11/2018 6:56 AM CDT [facility] Comment: NOTE: eGFR is not calculated for patients <18 years of age. This is an estimated GFR (CKD EPI) and should not be used for calculating drug doses. 09/11/2018 5:19 AM CDT Gil Dawson MD LABORATORY Final Result Performing Organization Address [facility] Co de Phone Number [facility] [address] [place] [address], [place] [phone] * (ABNORMAL) POCT glucose (09/11/2018 12:13 AM CDT) GLUCOSE POC 221(H) 70 - 99 mg/dL 09/11/2018 12:16 AM CDT [facility] ORDERS INTERFACE 09/11/2018 12:1 3 AM CDT Kirit Stafford MD POCT ORDERABLES - DEVICE Deann l Result Performing Organization Address City/[facility] Co de Phone Number [facility] ORDERS INTERFACE US * (ABNORMAL) POCT glucose (09/10/2018 8:29 PM CDT) GLUCOSE POC 181(H) 70 - 99 mg/dL 09/10/2018 11:04 PM CDT [facility] ORDERS INTERFACE 09/10/2018 8:29 PM CDT Kirit Stafford MD POCT ORDERABLES - DEVICE Deann l Result Performing Organization Address [facility]/ZIP Co de Phone Number [facility] ORDERS INTERFACE US * (ABNORMAL) POCT glucose (09/10/2018 4:19 PM CDT) GLUCOSE POC 114(H) 70 - 99 mg/dL 09/10/2018 4:22 PM CDT [facility] ORDERS INTERFACE 09/10/2018 4:19 PM CDT Kirit Stafford MD POCT ORDERABLES - DEVICE Deann l Result Performing Organization Address City/[facility]/ZIP Co de Phone Number [facility] ORDERS INTERFACE US * (ABNORMAL) POCT glucose (09/10/2018 12:24 PM CDT) GLUCOSE POC 135(H) 70 - 99 mg/dL 09/10/2018 12:27 PM CDT [facility] ORDERS INTERFACE 09/10/2018 12:2 4 PM CDT Kirit Stafford MD POCT ORDERABLES - DEVICE Deann l Result Performing Organization Address [facility] Co de Phone Number [facility] ORDERS INTERFACE US * (ABNORMAL) HEMOGLOBIN, GLYCOSYLATED (09/10/2018 5:57 AM CDT) HGB A1C 7.8(H) 4.2 - 6.3 % 09/10/2018 3:26 PM CDT [facility] Comment: ADA GUIDELINES 2010 5.7 TO 6.4% INCREASED RISK OF DIABETES > OR = 6.5% CONSISTENT WITH DIABETES ESTIMATED AVG GLUCOSE 177 mg/dL 09/10/2018 3:26 PM CDT [facility] 09/10/2018 5:57 AM CDT Shanthi Mendez MD LABORATORY Final Result Performing Organization Address City/[facility] Co de Phone Number [facility] [address] [place] [address], [place] [phone] * (ABNORMAL) CBC W/DIFF AUTOMATED (09/10/2018 5:57 AM CDT) [facility] Signature WBC 7.6 4.5 - 11.0 x10'3/uL 09/10/2018 7:01 AM CDT [facility] RBC 3.93(L) 4.20 - 5.40 x10'6/uL 09/10/2018 7:01 AM T [facility] HGB 10.9(L) 12.0 - 16.0 G/DL 09/10/2018 7:01 AM T [facility] HCT 35.8(L) 38.0 - 48.0 % 09/10/2018 7:01 AM T [facility] MCV 91.1 81.0 - 99.0 FL 09/10/2018 7:01 AM [facility] MCH 27.7 27.0 - 31.0 PG 09/10/2018 7:01 AM T [facility] MCHC 30.4(L) 32.0 - 36.0 G/DL 09/10/2018 7:01 AM T [facility] RDW 13.9 11.5 - 14.5 % 09/10/2018 7:01 AM [facility] PLT 268 130 - 400 x10'3/uL 09/10/2018 7:01 AM [facility] MPV 9.8 9.3 - 12.2 FL 09/10/2018 7:01 AM T [facility] DIFFERENTIAL TYPE AUTOMATED DIFFERENTIAL 09/10/2018 7:01 AM T [facility] NEUTROPHILS % 56.8 % 09/10/2018 7:01 AM [facility] LYMPHOCYTES % 28.9 % 09/10/2018 7:01 AM [facility] MONOCYTES % 8.0 % 09/10/2018 7:01 AM T [facility] EOSINOPHILS 5.5 % 09/10/2018 7:01 AM CDT [facility] BASOPHILS 0.4 % 09/10/2018 7:01 AM CDT [facility] IMMATURE GRANS % 0.4 % 09/11/19 7:01 AM CDT [facility] ABS. NEUTROPHILS TOTAL 4.30 1.80 - 7.70 x10'3/uL 09/10/2018 7:01 AM CDT [facility] ABS. LYMPHOCYTES 2.19 1.00 - 4.80 x10'3/uL 09/10/2018 7:01 AM CDT [facility] ABS. MONOCYTES 0.61 0.24 - 0.86 x10'3/uL 09/10/2018 7:01 AM CDT [facility] ABS. EOSINOPHILS 0.42(H) 0.04 - 0.36 x10'3/uL 09/10/2018 7:01 AM CDT [facility] ABS. BASOPHILS 0.03 0.01 - 0.08 x10'3/uL 09/10/2018 7:01 AM CDT [facility] ABS. IMMATURE GRANULOCYTES 0.03 0.00 - 0.49 x10'3/uL 09/10/2018 7:01 AM T [facility] 09/10/2018 5:57 AM CDT us Gil Dawson MD LABORATORY Final Result [facility] [address] [place] [address], [place] [phone] * (ABNORMAL) COMPREHENSIVE METABOLIC PANEL (09/10/2018 5:57 AM CDT) [facility] Signature GLUCOSE 121(H) 70 - 99 MG/DL 09/10/2018 7:43 AM CDT [facility] BUN 13 7 - 18 MG/DL 09/10/2018 7:43 AM [facility] CREATININE S/P/B 0.64 0.55 - 1.02 MG/DL 09/10/2018 7:43 AM T [facility] SODIUM S/P/B 136 136 - 145 MMOL/L 09/10/2018 7:43 AM T [facility] POTASSIUM S/P/B 4.3 3.5 - 5.1 MMOL/L 09/10/2018 7:43 AM T [facility] CHLORIDE S/P/B 106 100 - 108 MMOL/L 09/10/2018 7:43 AM T [facility] CO2 22.6 21 - 32 MMOL/L 09/10/2018 7:43 AM [facility] CALCIUM S/P/B 8.5 8.5 - 10.1 MG/DL 09/10/2018 7:43 AM T [facility] BILIRUBIN TOTAL S/P/B 0.7 0.2 - 1.2 MG/DL 09/10/2018 7:43 AM T [facility] TOTAL PROTEIN S/P/B 6.8 6.4 - 8.2 G/DL 09/10/2018 7:43 AM T [facility] ALBUMIN S/P/B 2.7(L) 3.4 - 5.0 G/DL 09/10/2018 7:43 AM T [facility] AST 18 15 - 37 U/L 09/10/2018 7:43 AM T [facility] ALT 22 14 - 55 U/L 09/10/2018 7:43 AM T [facility] ALKALINE PHOSPHATASE S/P/B 78 50 - 136 U/L 09/10/2018 7:43 AM T [facility] ANION GAP 11.7 8 - 20 MMOL/L 09/10/2018 7:43 AM CDT [facility] BUN CREATININE RATIO 20.3 6 - 26 09/10/2018 7:43 AM T [facility] A/G RATIO 0.7(L) 1.0 - 2.0 RATIO 09/10/2018 7:43 AM T [facility] EGFR NON-AFR. AMER. >90 >90 ML/MIN/1.7 3 M2 09/10/2018 7:43 AM CDT [facility] EGFR AFR. AMER. >90 >90 ML/MIN/1.7 3 M2 09/10/2018 7:43 AM T [facility] Comment: NOTE: eGFR is not calculated for patients <18 years of age. This is an estimated GFR (CKD EPI) and should not be used for calculating drug doses. 09/10/2018 5:57 AM CDT Jonel Pabon DO LABORATORY Final Result Performing Organization Address City/[facility]/ZIP Co de Phone Number [facility] [address] [place] [address], [place] [phone] * (ABNORMAL) POCT glucose (09/10/2018 5:37 AM CDT) GLUCOSE POC 143(H) 70 - 99 mg/dL 09/10/2018 7:20 AM CDT [facility] ORDERS INTERFACE 09/10/2018 5:37 AM CDT Kirit Stafford MD POCT ORDERABLES - DEVICE Deann l Result [facility] ORDERS INTERFACE US * (ABNORMAL) POCT glucose (09/09/2018 9:55 PM CDT) GLUCOSE POC 127(H) 70 - 99 mg/dL 09/09/2018 10:00 PM CDT [facility] ORDERS INTERFACE 09/09/2018 9:55 PM CDT Kirit Stafford MD POCT ORDERABLES - DEVICE Deann l Result Performing Organization Address [facility] Co de Phone Number [facility] ORDERS INTERFACE US * (ABNORMAL) POCT glucose (09/09/2018 5:18 PM CDT) GLUCOSE POC 122(H) 70 - 99 mg/dL 09/09/2018 5:21 PM CDT [facility] ORDERS INTERFACE 09/09/2018 5:18 PM CDT Kirit Stafford MD POCT ORDERABLES - DEVICE Deann l Result Performing Organization Address [facility] Co de Phone Number [facility] ORDERS INTERFACE US * (ABNORMAL) POCT glucose (09/09/2018 12:02 PM CDT) GLUCOSE POC 146(H) 70 - 99 mg/dL 09/09/2018 3:59 PM CDT [facility] ORDERS INTERFACE 09/09/2018 12:0 2 PM CDT Kirit Stafford MD POCT ORDERABLES - DEVICE Deann l Result Performing Organization Address [facility] Co de Phone Number [facility] ORDERS INTERFACE US * (ABNORMAL) POCT glucose (09/09/2018 6:28 AM CDT) GLUCOSE POC 154(H) 70 - 99 mg/dL 09/09/2018 6:31 AM CDT [facility] ORDERS INTERFACE 09/09/2018 6:28 AM CDT Kirit Stafford MD POCT ORDERABLES - DEVICE Deann l Result Performing Organization Address [facility]/ZIP Co de Phone Number [facility] ORDERS INTERFACE US * CULTURE URINE (09/09/2018 12:51 AM CDT) SPEC DESCRIPTION URINE CLEAN CATCH 09/09/2018 1:08 AM CDT [facility] SPECIAL REQUESTS NO SPECIAL REQUEST 09/09/2018 1:08 AM CDT [facility] CULTURE RESULT POLYMICROBIAL GROWTH CONSISTENT WITH NORMAL GENITAL YESENIA. ?? SUSCEPTIBILITIES NOT ROUTINELY PERFORMED. 09/11/2018 6:58 AM CDT [facility] URINE SPECIMEN OBTAINED BY CLEAN CATCH PROCEDURE / Unknown 09/09/2018 12:51 AM CDT 09/09/2018 1:07 AM CDT us Colten Reilly MD MICROBIOLOGY - GENERAL ORDERABLE S Final Result [facility] [address] [place] [address], * (ABNORMAL) URINALYSIS (09/09/2018 12:50 AM CDT) SPECIMEN TYPE URINE CLEAN CATCH 09/09/2018 12:51 AM CDT [facility] COLOR (U) YELLOW 09/09/2018 1:07 AM CDT [facility] TRANSPARENCY CLEAR 09/09/2018 1:07 AM CDT [facility] SPECIFIC GRAVITY (U) 1.023 1.001 - 1.030 09/09/2018 1:07 AM CDT [facility] U PH 5.0 5.0 - 9.0 09/09/2018 1:07 AM CDT [facility] LEUKOCYTES (U) MODERATE(A) NEGATIVE 9 1:07 AM CDT [facility] NITRITES NEGATIVE NEGATIVE 09/09/2018 1:07 AM CDT [facility] PROTEIN (U) NEGATIVE <30 MG/DL 09/09/2018 1:07 AM CDT [facility] URINE GLUCOSE NEGATIVE NEGATIVE MG/DL 09/09/2018 1:07 AM CDT [facility] KETONES MG/DL (U) NEGATIVE NEGATIVE MG/DL 09/09/2018 1:07 AM CDT [facility] UROBILINOGEN NEGATIVE NEGATIVE MG/DL 09/09/2018 1:07 AM CDT [facility] BILIRUBIN (U) NEGATIVE NEGATIVE MG/DL 09/09/2018 1:07 AM CDT [facility] BLOOD (U) MODERATE(A) NEGATIVE 09/09/2018 1:07 AM T [facility] CULTURE & SENSITIVITY INDICATED? SPECIMEN SETUP FOR CULTURE 09/09/2018 1:07 AM T [facility] SQUAMOUS EPITHELIALS FEW /LPF 09/09/2018 1:07 AM CDT [facility] MUCUS RARE /LPF 09/09/2018 1:07 AM T [facility] WBC/HPF 22(H) <6 /HPF 09/09/2018 1:07 AM CDT [facility] RBC/HPF 28(H) <6 /HPF 09/09/2018 1:07 AM T [facility] URINE SPECIMEN OBTAINED BY CLEAN CATCH PROCEDURE / Unknown 09/09/2018 12:50 AM CDT us Colten Reilly MD URINE ORDERABLES Final Result [facility] [address] [place] [address], [place] [phone] * LIPASE (09/09/2018 12:50 AM CDT) LIPASE 156 73 - 393 UNITS/L 09/09/2018 1:30 AM CDT [facility] 09/09/2018 12:5 0 AM CDT us Colten Reilly MD LABORATORY Final Result [facility] [address] [place] [address], [place] [phone] * (ABNORMAL) COMPREHENSIVE METABOLIC PANEL (09/09/2018 12:50 AM CDT) Pathologist [facility] GLUCOSE 191(H) 70 - 99 MG/DL 09/09/2018 1:30 AM CDT [facility] BUN 20(H) 7 - 18 MG/DL 09/09/2018 1:30 AM CDT [facility] CREATININE S/P/B 0.93 0.55 - 1.02 MG/DL 09/09/2018 1:30 AM CDT [facility] SODIUM S/P/B 135(L) 136 - 145 MMOL/L 09/09/2018 1:30 AM CDT [facility] POTASSIUM S/P/B 4.2 3.5 - 5.1 MMOL/L 09/09/2018 1:30 AM CDT [facility] CHLORIDE S/P/B 102 100 - 108 MMOL/L 09/09/2018 1:30 AM CDT [facility] CO2 28.7 21 - 32 MMOL/L 09/09/2018 1:30 AM CDT [facility] CALCIUM S/P/B 9.4 8.5 - 10.1 MG/DL 09/09/2018 1:30 AM CDT [facility] BILIRUBIN TOTAL S/P/B 0.4 0.2 - 1.2 MG/DL 09/09/2018 1:30 AM CDT [facility] TOTAL PROTEIN S/P/B 9.0(H) 6.4 - 8.2 G/DL 09/09/2018 1:30 AM T [facility] ALBUMIN S/P/B 3.6 3.4 - 5.0 G/DL 09/09/2018 1:30 AM T [facility] AST 20 15 - 37 U/L 09/09/2018 1:30 AM T [facility] ALT 26 14 - 55 U/L 09/09/2018 1:30 AM T [facility] ALKALINE PHOSPHATASE S/P/B 102 50 - 136 U/L 09/09/2018 1:30 AM T [facility] ANION GAP 8.5 8 - 20 MMOL/L 09/09/2018 1:30 AM T [facility] BUN CREATININE RATIO 21.6 6 - 26 09/09/2018 1:30 AM [facility] A/G RATIO 0.7(L) 1.0 - 2.0 RATIO 09/09/2018 1:30 AM [facility] EGFR NON-AFR. AMER. 66(L) >90 ML/MIN/1.7 3 M2 09/09/2018 1:30 AM [facility] EGFR AFR. AMER. 76(L) >90 ML/MIN/1.7 3 M2 09/09/2018 1:30 AM [facility] Comment: NOTE: eGFR is not calculated for patients <18 years of age. This is an estimated GFR (CKD EPI) and should not be used for calculating drug doses. 09/09/2018 12:5 0 AM CDT us Colten Reilly MD LABORATORY Final Result [facility] [address] [place] [address], [place] [phone] * (ABNORMAL) CBC W/DIFF AUTOMATED (09/09/2018 12:50 AM CDT) WBC 12.5(H) 4.5 - 11.0 x10'3/uL 09/09/2018 1:16 AM CDT [facility] RBC 4.84 4.20 - 5.40 x10'6/uL 09/09/2018 1:16 AM CDT [facility] HGB 13.5 12.0 - 16.0 G/DL 09/09/2018 1:16 AM CDT [facility] HCT 42.7 38.0 - 48.0 % 09/09/2018 1:16 AM CDT [facility] MCV 88.2 80.0 - 94.0 FL 09/09/2018 1:16 AM CDT [facility] MCH 27.9 27.0 - 31.0 PG 09/09/2018 1:16 AM CDT [facility] MCHC 31.6(L) 32.0 - 36.0 G/DL 09/09/2018 1:16 AM CDT [facility] RDW 13.8 11.5 - 14.5 % 09/09/2018 1:16 AM CDT [facility] PLT 383 130 - 400 x10'3/uL 09/09/2018 1:16 AM CDT [facility] MPV 9.7 9.3 - 12.2 FL 09/09/2018 1:16 AM CDT [facility] DIFFERENTIAL TYPE MANUAL DIFFERENTIAL 09/09/2018 1:54 AM CDT [facility] SEG NEUTROPHILS 60 % 9 1:54 AM CDT [facility] LYMPHOCYTES 23 % 09/09/2018 1:54 AM CDT [facility] MONOCYTES 13 % 09/09/2018 1:54 AM CDT [facility] EOSINOPHILS 3 % 09/09/2018 1:54 AM CDT [facility] MYELOCYTES 1 % 09/09/2018 1:54 AM CDT [facility] ABS. NEUTROPHILS CALCULATED 7.50 1.80 - 7.70 x10'3/uL 09/09/2018 1:54 AM CDT [facility] ABS.LYMPHOCYTES CALCULATED 2.88 1.00 - 4.80 x10'3/uL 09/09/2018 1:54 AM CDT [facility] ABS. MONOCYTES CALCULATED 1.63(H) 0.24 - 0.86 x10'3/uL 09/09/2018 1:54 AM CDT [facility] ABS. EOSINOPHIL CALCULATED 0.38(H) 0.04 - 0.36 x10'3/uL 09/09/2018 1:54 AM CDT [facility] ABS. MYELOCYTES 0.13(H) 0.00 x10'3/uL 09/09/2018 1:54 AM T [facility] RBC MORPHOLOGY RBC MORPHOLOGY APPEARS NORMAL. SLIDE REVIEWED. 09/09/2018 1:54 AM CDT [facility] PLT EST. ADEQUATE 09/09/2018 1:54 AM T [facility] 09/09/2018 12:5 0 AM CDT us Colten Reilly MD LABORATORY Final Result [facility] [address] [place] [address], [place] [phone] documented in this encounter Visit Diagnoses Diagnosis Abdominal pain- Primary Abdominal pain, unspecified site Abdominal pain Abdominal pain, unspecified site History of breast cancer Personal history of malignant neoplasm of breast documented in this encounter Admitting Diagnoses Diagnosis Abdominal pain Abdominal pain, unspecified site documented in this encounter Administered Medications Inactive Administered Medications - up to 3 most recent administrations Medication Order MAR Action Action Date Dose Rate Site acetaminophen (TYLENOL) tablet 650 mg 650 mg, Oral, Every 6 hours scheduled (4 times per day), First dose on Mon09/09/18 at 0600, Until Discontinued, Maximum dose of acetaminophen is 4000 mg from all sources in 24 hours. Given 09/11/2018 12:17 PM CDT 650 mg Given 09/11/2018 6:49 AM CDT 650 mg Given 09/09/2018 5:32 AM CDT 650 mg amitriptyline (ELAVIL) tablet 25 mg 25 mg, Oral, Nightly at bedtime, First dose on Mon09/09/18 at 2100, Until Discontinued Given 09/10/2018 9:16 PM CDT 25 m g Given 09/09/2018 9:56 PM CDT 25 mg barium sulfate (VARIBAR) 40 % suspension 240 mL 240 mL, Oral, IMG once as needed, Contrast, 1 dose, Starting on Mon09/11/18 at 0830, Until Mon09/11/18 at 0830 Given 09/11/2018 8:30 AM CDT 240 mLs dextrose (GLUTOSE) 40 % oral gel 15-30 g 15-30 g, Oral, As needed, Low blood sugar, Starting on Mon09/09/18 at 0356, Until Mon09/11/18 at 192, If patient is verbally responsive and taking thickened liquids or oral medications: Blood glucose less than 50 mg/dL - give 30 g (2 tubes), repeat until blood glucose reaches 70 mg/dL Blood glucose 50-69 mg/dL - give 15 g (1 tube), repeat until blood glucose reaches 70 mg/dL dextrose 50 % solution 25-50 mL 25-50 mL, Intravenous, As needed, Low blood sugar, Starting on Mon09/09/18 at 0356, Until Mon09/11/18 at 1922, If patient is verbally responsive and NPO or unable to swallow: Blood glucose less than 50 mg/dL - give 50 mL (1 syringe), repeat until blood glucose reaches 70 mg/dL Blood glucose 50-69 mg/dL - give 25 mL (0.5 syringe), repeat until blood glucose reaches 70 mg/dL If patient is verbally UNresponsive and NPO or unable to swallow: Blood glucose less than 70 mg/dL - give 50 mL (1 syringe), repeat until blood glucose reaches 70 mg/dL diphenhydrAMINE (BENADRYL) capsule 50 mg 50 mg, Oral, Once, 1 dose, On Mon09/10/18 at 2330 Given 09/10/2018 11:53 PM CDT 50 mg docusate sodium (COLACE) capsule 100 mg 100 mg, Oral, 2 times daily, First dose on Mon09/09/18 at 0900, Until Discontinued Given 09/11/2018 12:16 PM CDT 100 mg Given 09/10/2018 8:32 AM CDT 100 mg Given 09/09/2018 9:57 PM CDT 100 mg EPINEPHrine PF (ADRENALIN) 1 mg/mL injection 0.5 mg 0.5 mg, Intramuscular, Once, 1 dose, On Mon09/10/18 at 2330 Given 09/10/2018 11:55 PM CDT 0.5 mg Left Ventrogluteal glucagon injection 1 mg 1 mg, Intramuscular, Once as needed, Other, Low blood sugar, 1 dose, Starting on Mon09/09/18 at 0356, Until Mon09/11/18 at 192, If patient is verbally UNresponsive and no IV access with blood glucose less than 70 mg/dL. Do NOT repeat administration. hydrocodone-acetaminophen (NORCO) 7.5-325 MG tablet 2 tablet 2 tablet, Oral, Every 4 hours PRN, Moderate pain (Scale 4 - 7), Severe pain (Scale 8 - 10), Starting on Mon09/09/18 at 0435, Until Mon09/11/18 at 1922, Maximum dose of acetaminophen is 4000 mg from all sources in 24 hours. Given 09/11/2018 1:06 PM CDT 2 tablets Given 09/10/2018 8:46 PM CDT 2 tablets Given 09/09/2018 10:02 PM CDT 2 tablets insulin glargine (LANTUS) injection 25 Units 25 Units, Subcutaneous, Once, 1 dose, On Mon09/10/18 at 0900 Given 09/10/2018 9:34 AM CDT 25 Units Right Arm insulin glargine (LANTUS) injection 50 Units 50 Units, Subcutaneous, Every morning, First dose on Mon09/09/18 at 0700, Until Discontinued Given 09/11/2018 12:15 PM CDT 50 Units Right Arm Given 09/09/2018 7:30 AM CDT 50 Units Le ft Lower Abdomen insulin lispro (HUMALOG) injection 0-16 Units 0-16 Units, Subcutaneous, Every 6 hours scheduled (4 times per day), First dose on Mon09/09/18 at 0600, Until Discontinued, Blood Glucose (USUAL Dosing): [Less than 70:?Initiate Hypoglycemia Standing Orders] [71-140:? 0 units] [141-180:? 4 units] [181-220:? 6 units] [221-260:? 8 units] [261-300:?? 10 units] [301-350:?? 12 units] [351-400:?14 units] [Greater than 400:?16 units and Call Physician] Given 09/11/2018 12:37 AM CDT 6 Units Left Upper Abdomen insulin lispro (HUMALOG) injection 0-16 Units 0-16 Units, Subcutaneous, 3 times daily before meals, First dose on Mon09/11/18 at 1100, Until Discontinued, Blood Glucose (USUAL Dosing): [Less than 70:? Initiate Hypoglycemia Standing Orders] [71-140: ? 0 units] [141-180:? 4 units] [181-220:? 6 units] [221-260:? 8 units] [261-300:? 10 units] [301-350:? 12 units] [351-400:? 14 units] [Greater than 400:? 16 units and Call Physician] insulin lispro (HUMALOG) injection 0-8 Units 0-8 Units, Subcutaneous, Nightly at bedtime, First dose on Mon09/11/18 at 2100, Until Discontinued, Blood Glucose (USUAL Dosing): [Less than 70:? Initiate Hypoglycemia Standing Orders] [71-180:? 0 units] [181-220:? 3 units] [221-260:? 4 units] [261-300:? 5 units] [301-350:? 6 units] [351-400:? 7 units] [Greater than 400:? 8 units and Call Physician] insulin lispro (HUMALOG) injection 20 Units 20 Units, Subcutaneous, 3 times daily with meals, First dose on Mon09/11/18 at 0800, Until Discontinued, For sliding scale, activate Sliding Scale Insulin order set Given 09/11/2018 5:01 PM CDT 20 Units Right Arm Given 09/11/2018 12:16 PM CDT 20 Units R ight Arm ketorolac (TORADOL) injection 15 mg 15 mg, Intravenous, Every 6 hours PRN, Moderate pain (Scale 4 - 7), Starting on Mon09/09/18 at 1025, Until Mon09/11/18 at 0940, For IV administration, give over 15 seconds. Given 09/10/2018 5:13 PM CDT 15 mg Given 09/10/2018 11:13 AM CDT 15 mg Given 09/09/2018 6:43 PM CDT 15 mg lactated ringers infusion at 10 mL/hr, Intravenous, Continuous, Starting on Mon09/10/18 at 1830, Until Mon09/11/18 at 1922, Infuse at TKO rate, Pre-Op New Bag 09/10/2018 6:08 PM CDT lisinopril (PRINIVIL,ZESTRIL) tablet 20 mg 20 mg, Oral, Daily, First dose on Mon09/09/18 at 0900, Until Discontinued Given 09/11/2018 12:16 PM CDT 20 mg Given 09/10/2018 8:32 AM CDT 20 mg Given 09/09/2018 9:48 AM CDT 20 mg morphine injection 4 mg 4 mg, Intravenous, Once, 1 dose, On Mon09/09/18 at 0100 Given 09/09/2018 1:03 AM CDT 4 mg ondansetron (ZOFRAN) injection 4 mg 4 mg, Intravenous, Once, 1 dose, On Mon09/09/18 at 0100, IV push over 2-5 minutes. Given 09/09/2018 1:03 AM CDT 4 mg ondansetron (ZOFRAN) injection 4 mg 4 mg, Intravenous, Every 6 hours PRN, Nausea, Starting on Mon09/09/18 at 0451, Until Mon09/11/18 at 1922, IV push over 2-5 minutes. Given 09/11/2018 3:20 PM CDT 4 mg Given 09/11/2018 4:58 AM CDT 4 mg Given 09/10/2018 8:34 AM CDT 4 mg oxybutynin (DITROPAN) tablet 5 mg 5 mg, Oral, 2 times daily, First dose on Mon09/09/18 at 0900, Until Discontinued Given 09/11/2018 12:17 PM CDT 5 mg Given 09/10/2018 8:46 PM CDT 5 mg Given 09/10/2018 8:32 AM CDT 5 mg pantoprazole EC (PROTONIX) tablet 40 mg 40 mg, Oral, Daily, First dose on 09/09/18 at 1115, Until Discontinued, Do not break, chew, or crush. Given 09/11/2018 12:17 PM CDT 40 mg Given 09/10/2018 8:31 AM CDT 40 mg Given 09/09/2018 12:57 PM CDT 40 mg polyethylene glycol (GLYCOLAX) packet 34 g 34 g, Oral, Daily, First dose (after last modification) on Mon09/09/18 at 0945, Until Discontinued polyethylene glycol (GoLYTELY) solution 4,000 mL 4,000 mL, Oral, As needed, administer 240 mL every 15 minutes until clear, 1 dose, Starting on Mon09/09/18 at 1155, Until Mon09/09/18 at 2011, Resume prep at 0500 time next morning, Pre-ProcedureIndications:Abdominal pain Given 09/09/2018 8:11 PM CDT 4,00 0 mLs rivaroxaban (XARELTO) tablet 20 mg 20 mg, Oral, Daily, First dose on Mon09/09/18 at 0900, Until Discontinued Given 09/11/2018 12:17 PM CDT 20 mg Given 09/09/2018 9:48 AM CDT 20 mg ropinirole (REQUIP) tablet 5 mg 5 mg, Oral, Nightly at bedtime, First dose (after last modification) on Mon09/09/18 at 0600, Until Discontinued Given 09/10/2018 9:15 PM CDT 5 mg Given 09/09/2018 9:56 PM CDT 5 mg Given 09/09/2018 7:30 AM CDT 5 mg sodium chloride 0.9% infusion at 125 mL/hr, Intravenous, Continuous, Starting on Mon09/09/18 at 0430, Until Mon09/11/18 at 1922 New Bag 09/11/2018 3:20 PM CDT 125 mL/hr New Bag 09/10/2018 4:13 PM CDT 125 mL/hr New Bag 09/10/2018 3:21 AM CDT 125 mL/hr documented in this encounter Active and Recently Administered Medications Times are shown in CDT. Scheduled Medication Order 09/09/2018 09/10/2018 09/11/2018 acetaminophen (TYLENOL) tablet 650 mg 650 mg, Oral, Every 6 hours scheduled (4 times per day), First dose on 09/09/18 at 0600, Until Discontinued, Maximum dose of acetaminophen is 4000 mg from all sources in 24 hours. 0532 (Given - Provider: Felicitas Coronel RN)1257 (Not Given - Provider: Mary Sloan LPN - Reason: Patient/family declined)1739 (Not Given - Provider: Mary Sloan LPN - Reason: Patient/family declined) 0036 (Not Given - Provider: Raeann Ceron LPN - Reason: Patient sleeping)0542 (Not Given - Provider: Raeann Ceron LPN - Reason: NPO)1145 (Not Given - Provider: Christin Simmons RN - Reason: Patient/family declined)1800 (Not Given - Provider: Christin Simmons RN - Reason: Patient not available) 0038 (Not Given - Provider: Jane Moss RN - Reason: Patient/family declined)0649 (Given - Provider: Jane Moss RN)1217 (Given - Provider: Albert Gaxiola RN)1800 (Canceled Entry - Provider: Automatic Discharge Provider - Comment: Automatically canceled at discontinue of medication order) amitriptyline (ELAVIL) tablet 25 mg 25 mg, Oral, Nightly at bedtime, First dose on 09/09/18 at 2100, Until Discontinued 2155 (Given - Provider: Raeann Ceron LPN) 2116 (Given - Provider: Jane Moss RN) diphenhydrAMINE (BENADRYL) capsule 50 mg (COMPLETED) 50 mg, Oral, Once, 1 dose, On 09/10/18 at 2330 2353 (Given - Provider: Jane Moss RN) docusate sodium (COLACE) capsule 100 mg 100 mg, Oral, 2 times daily, First dose on 09/09/18 at 0900, Until Discontinued 0948 (Given - Provider: Mary Sloan LPN)2157 (Given - Provider: Raeann Ceron LPN) 0832 (Given - Provider: Christin Simmons RN)2047 (Not Given - Provider: Jane Moss RN - Reason: Patient/family declined) 1216 (Given - Provider: Albert Gaxiola RN) EPINEPHrine PF (ADRENALIN) 1 mg/mL injection 0.5 mg (COMPLETED) 0.5 mg, Intramuscular, Once, 1 dose, On Mon09/10/18 at 2330 2355 (Given - Provider: Jane Moss, NURIS) exemestane (AROMASIN) tablet 25 mg 25 mg, Oral, Daily with supper, First dose on 09/09/18 at 1700, Until Discontinued, Give with food HAZARDOUS MEDICATION, MED STORED in [employer]Patient Specific Bin , Patient's Own Exemastane (aromasin) 25 mg tablets , Take one tablet by mouth daily after a meal, Identified Quantity: 26, Med Identified by: 09-10-18, Please send medication home with patient upon discharge 1741 (Not Given - Provider: Mary Sloan LPN - Reason: Medication not available) 1608 (Not Given - Provider: Christin Simmons RN - Reason: Medication not available) 1700 (Canceled Entry - Provider: Automatic Discharge Provider - Comment: Automatically canceled at discontinue of medication order) insulin glargine (LANTUS) injection 25 Units (COMPLETED) 25 Units, Subcutaneous, Once, 1 dose, On Mon09/10/18 at 0900 0934 (Given - Provider: Christin Simmons, NURIS) insulin glargine (LANTUS) injection 50 Units 50 Units, Subcutaneous, Every morning, First dose on Mon09/09/18 at 0700, Until Discontinued 0730 (Given - Provider: Felicitas Coronel, NURIS) 0935 (Not Given - Provider: Chirstin Simmons RN - Reason: Other - Comment: one time dose of 25 units given, patient is NPO) 1215 (Given - Provider: Albert Gaxiola RN) insulin lispro (HUMALOG) injection 0-16 Units (CANCELED) 0-16 Units, Subcutaneous, Every 6 hours scheduled (4 times per day), First dose on Mon09/09/18 at 0600, Until Discontinued, Blood Glucose (USUAL Dosing): [Less than 70:?Initiate Hypoglycemia Standing Orders] [71-140:? 0 units] [141-180:? 4 units] [181-220:? 6 units] [221-260:? 8 units] [261-300:?? 10 units] [301-350:?? 12 units] [351-400:?14 units] [Greater than 400:?16 units and Call Physician] 0947 (Not Given - Provider: Mary Sloan LPN - Reason: Patient/family declined)1258 (Not Given - Provider: Mary Sloan LPN - Reason: Patient/family declined)1741 (Not Given - Provider: Mary Sloan LPN - Reason: Order parameters not met)2349 (Not Given - Provider: Raeann Ceron LPN - Reason: Order parameters not met) 0542 (Not Given - Provider: Raeann Ceron LPN - Reason: NPO)1240 (Not Given - Provider: Brittany Short RN - Reason: Order parameters not met - Comment: BS 135)1650 (Not Given - Provider: Christin Simmons RN - Reason: Order parameters not met) 0037 (Given - Provider: Jane Moss RN)1150 (Not Given - Provider: Albert Gaxiola RN - Reason: Other - Comment: 0735) insulin lispro (HUMALOG) injection 0-16 Units(Linked Group 1) 0-16 Units, Subcutaneous, 3 times daily before meals, First dose on Mon09/11/18 at 1100, Until Discontinued, Blood Glucose (USUAL Dosing): [Less than 70:? Initiate Hypoglycemia Standing Orders] [71-140: ? 0 units] [141-180:? 4 units] [181-220:? 6 units] [221-260:? 8 units] [261-300:? 10 units] [301-350:? 12 units] [351-400:? 14 units] [Greater than 400:? 16 units and Call Physician] 1151 (Not Given - Provider: Albert Gaxiola RN - Reason: Order parameters not met)1702 (Not Given - Provider: Albert Gaxiola RN - Reason: Order parameters not met) insulin lispro (HUMALOG) injection 0-8 Units(Linked Group 1) 0-8 Units, Subcutaneous, Nightly at bedtime, First dose on Mon09/11/18 at 2100, Until Discontinued, Blood Glucose (USUAL Dosing): [Less than 70:? Initiate Hypoglycemia Standing Orders] [71-180:? 0 units] [181-220:? 3 units] [221-260:? 4 units] [261-300:? 5 units] [301-350:? 6 units] [351-400:? 7 units] [Greater than 400:? 8 units and Call Physician] insulin lispro (HUMALOG) injection 20 Units 20 Units, Subcutaneous, 3 times daily with meals, First dose on Mon09/11/18 at 0800, Until Discontinued, For sliding scale, activate Sliding Scale Insulin order set 0830 (Not Given - Provider: Albert Gaxiola RN - Reason: Patient not available - Comment: Pt off floor did not eat breakfast.)1216 (Given - Provider: Albert Gaxiola RN)1701 (Given - Provider: Albert Gaxiola RN) lisinopril (PRINIVIL,ZESTRIL) tablet 20 mg 20 mg, Oral, Daily, First dose on Mon09/09/18 at 0900, Until Discontinued 0948 (Given - Provider: Mary Sloan LPN) 0832 (Given - Provider: Christin Simmons RN) 1216 (Given - Provider: Albert Gaxiola RN) morphine injection 4 mg (COMPLETED) 4 mg, Intravenous, Once, 1 dose, On 09/09/18 at 0100 0103 (Given - Provider: Larissa Tobias RN)0108 (Not Given - Provider: Larissa Tobias RN - Reason: Other - Comment: see other documentation) ondansetron (ZOFRAN) injection 4 mg (COMPLETED) 4 mg, Intravenous, Once, 1 dose, On 09/09/18 at 0100, IV push over 2-5 minutes. 0103 (Given - Provider: Larissa Tobias RN)0108 (Not Given - Provider: Larissa Tobias RN - Reason: Other - Comment: see other documentation) oxybutynin (DITROPAN) tablet 5 mg 5 mg, Oral, 2 times daily, First dose on 09/09/18 at 0900, Until Discontinued 0948 (Given - Provider: Mary Sloan LPN)2157 (Given - Provider: Raeann Ceron LPN) 0832 (Given - Provider: Crhistin Simmons RN)2046 (Given - Provider: Jane Moss RN) 1217 (Given - Provider: Albert Gaxiola, NURIS) pantoprazole EC (PROTONIX) tablet 40 mg 40 mg, Oral, Daily, First dose on 09/09/18 at 1115, Until Discontinued, Do not break, chew, or crush. 1257 (Given - Provider: Mary Sloan LPN) 0831 (Given - Provider: Christin Simmons RN) 1217 (Given - Provider: Albert Gaxiola, NURIS) polyethylene glycol (GLYCOLAX) packet 34 g 34 g, Oral, Daily, First dose (after last modification) on 09/09/18 at 0945, Until Discontinued 1028 (Not Given - Provider: Mary Sloan LPN - Reason: Patient/family declined) 0819 (Not Given - Provider: Christin Simmons RN - Reason: Other - Comment: Patient currently drinking golytely for bowel prep) 1217 (Not Given - Provider: Albert Gaxiola RN - Reason: Patient/family declined) rivaroxaban (XARELTO) tablet 20 mg 20 mg, Oral, Daily, First dose on 09/09/18 at 0900, Until Discontinued 0948 (Given - Provider: Mray Sloan LPN) 0817 (Not Given - Provider: Christin Simmons RN - Reason: NPO - Comment: EGD/ Colonoscopy) 1217 (Given - Provider: Albert Gaxiola, NURIS) ropinirole (REQUIP) tablet 5 mg 5 mg, Oral, Nightly at bedtime, First dose (after last modification) on Mon09/09/18 at 0600, Until Discontinued 0730 (Given - Provider: Felicitas Coronel, NURIS)2156 (Given - Provider: Raeann Ceron LPN) 2115 (Given - Provider: Jane Moss, NURIS) Continuous Medication Order 09/09/2018 09/10/2018 09/11/2018 lactated ringers infusion at 10 mL/hr, Intravenous, Continuous, Starting on Mon09/10/18 at 1830, Until Mon09/11/18 at 1922, Infuse at TKO rate, Pre-Op 1808 (New Bag - Provider: Adriana Arias CRNA)1834 (Infusion Stop Time - Provider: Adriana Arias CRNA) sodium chloride 0.9% infusion at 125 mL/hr, Intravenous, Continuous, Starting on Mon09/09/18 at 0430, Until Mon09/11/18 at 1922 0532 (New Bag - Provider: Felicitas Coronel RN) 0320 (Infusion Stop Time - Provider: Raeann Ceron LPN)0321 (New Bag - Provider: Raeann Ceron LPN)1613 (New Bag - Provider: Christin Simmons, NURIS) 1520 (New Bag - Provider: Albert Gaxiola RN) PRN Medication Order 09/09/2018 09/10/2018 09/11/2018 barium sulfate (VARIBAR) 40 % suspension 240 mL (COMPLETED) 240 mL, Oral, IMG once as needed, Contrast, 1 dose, Starting on Mon09/11/18 at 0830, Until Mon09/11/18 at 0830 0830 (Given - Provider: Darcy Andrade, RTR) dextrose (GLUTOSE) 40 % oral gel 15-30 g 15-30 g, Oral, As needed, Low blood sugar, Starting on Mon09/09/18 at 0356, Until Mon09/11/18 at 1922, If patient is verbally responsive and taking thickened liquids or oral medications: Blood glucose less than 50 mg/dL - give 30 g (2 tubes), repeat until blood glucose reaches 70 mg/dL Blood glucose 50-69 mg/dL - give 15 g (1 tube), repeat until blood glucose reaches 70 mg/dL dextrose 50 % solution 25-50 mL 25-50 mL, Intravenous, As needed, Low blood sugar, Starting on Mon09/09/18 at 0356, Until Mon09/11/18 at 1922, If patient is verbally responsive and NPO or unable to swallow: Blood glucose less than 50 mg/dL - give 50 mL (1 syringe), repeat until blood glucose reaches 70 mg/dL Blood glucose 50-69 mg/dL - give 25 mL (0.5 syringe), repeat until blood glucose reaches 70 mg/dL If patient is verbally UNresponsive and NPO or unable to swallow: Blood glucose less than 70 mg/dL - give 50 mL (1 syringe), repeat until blood glucose reaches 70 mg/dL glucagon injection 1 mg 1 mg, Intramuscular, Once as needed, Other, Low blood sugar, 1 dose, Starting on Mon09/09/18 at 0356, Until Mon09/11/18 at 1922, If patient is verbally UNresponsive and no IV access with blood glucose less than 70 mg/dL. Do NOT repeat administration. hydrocodone-acetaminophe n (NORCO) 7.5-325 MG tablet 2 tablet 2 tablet, Oral, Every 4 hours PRN, Moderate pain (Scale 4 - 7), Severe pain (Scale 8 - 10), Starting on Mon09/09/18 at 0435, Until Mon09/11/18 at 1922, Maximum dose of acetaminophen is 4000 mg from all sources in 24 hours. 1258 (Given - Provider: Mary Sloan LPN)2202 (Given - Provider: Raeann Ceron LPN) 2046 (Given - Provider: Jane Moss RN) 1306 (Given - Provider: Albert Gaxiola RN) ketorolac (TORADOL) injection 15 mg (CANCELED) 15 mg, Intravenous, Every 6 hours PRN, Moderate pain (Scale 4 - 7), Starting on Mon09/09/18 at 1025, Until Mon09/11/18 at 0940, For IV administration, give over 15 seconds. 1036 (Given - Provider: Isamar Bruno, NURIS)1843 (Given - Provider: Nirmala Marino RN) 1113 (Given - Provider: Brittany Short, RN)1713 (Given - Provider: Brittany Short, RN) ondansetron (ZOFRAN) injection 4 mg 4 mg, Intravenous, Every 6 hours PRN, Nausea, Starting on Mon09/09/18 at 0451, Until Mon09/11/18 at 1922, IV push over 2-5 minutes. 1312 (Given - Provider: Isamar Bruno RN) 0834 (Given - Provider: Christin Simmons RN) 0458 (Given - Provider: Jane Moss RN)1520 (Given - Provider: Albert Gaxiola RN) polyethylene glycol (GoLYTELY) solution 4,000 mL (COMPLETED) 4,000 mL, Oral, As needed, administer 240 mL every 15 minutes until clear, 1 dose, Starting on Mon09/09/18 at 1155, Until Mon09/09/18 at 2010, Resume prep at 0500 time next morning, Pre-Procedure 2010 (Given - Provider: Mary Sloan LPN) Linked Groups Order Group 1: insulin lispro (HUMALOG) injection 0-16 UnitsJump to med 0-16 Units, Subcutaneous, 3 times daily before meals, First dose on Mon09/11/18 at 1100, Until Discontinued, Blood Glucose (USUAL Dosing): [Less than 70:? Initiate Hypoglycemia Standing Orders] [71-140: ? 0 units] [141-180:? 4 units] [181-220:? 6 units] [221-260:? 8 units] [261-300:? 10 units] [301- 350:? 12 units] [351-400:? 14 units] [Greater than 400:? 16 units and Call Physician] And insulin lispro (HUMALOG) injection 0-8 UnitsJump to med 0-8 Units, Subcutaneous, Nightly at bedtime, First dose on Mon09/11/18 at 2100, Until Discontinued, Blood Glucose (USUAL Dosing): [Less than 70:? Initiate Hypoglycemia Standing Orders] [71-180:? 0 units] [181-220:? 3 units] [221-260:? 4 units] [261-300:? 5 units] [301-350:? 6 units] [351-400:? 7 units] [Greater than 400:? 8 units and Call Physician] documented in this encounter Additional Health Concerns Infection Onset Date Last Indicated Resolved Time MRSA Comment:MRSA nares pos. 02/201808/31/2018 08/31/2018 07/02/19 21 2:54 AM [employer] documented as of this encounter Care Teams Quantitative Associate Relationship Specialty Start Date End Date Gerardo Hoffman MD [address] [phone] PCP - General FAMILY PRACTICE 08/20/17 Meena Bansal MD [address] [facility] [address] [place] [address] [place] [employer] CARDIOVASCULAR DISEASE 04/24/16 documented as of this encounter
--- OUTSIDE RECORDS SUMMARY | 2024-04-26 02:41 | XMS_ITS | Encounter Summary ---
Author Organization [facility] Address [address] [place] [address]. [place] [address] [place] [address] Care Team Providers Care Explosive Operator Fuse Name Role Phone Meena Bansal MD Unavailable [phone] Justen Gale MD Primary Care Provider [phone] Reason for Visit * Reason Comments Leg Pain left Encounter Details Date Type Department Care Team (Late st Contact Info) Description 01/17/2019 12:56 AM CDT - 01/17/2019 3:54 AM CDT Emergency [facility] [place] [address] Jaswinder Gaytan MD [address] [place] [address] Leg Pain (left) Discharge Disposition: Home or Self Care (Routine [...] Orientation Straight 03/18/2018 3: 01 AM 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 documented as of this encounter Last Filed Vital Signs Vital Sign Reading Time Taken Comments Blood Pressure 132/82 01/17/2019 1:45 AM CDT Pulse 72 01/17/2019 1:45 AM CDT Temperature 37.1 ??C (98.8 ??F) 01/16/2019 11:09 PM C DT Respiratory Rate 18 01/17/2019 1:45 AM CDT Oxygen Saturation 98% 01/17/2019 1:45 AM CDT Inhaled Oxygen Concentration - - Weight 129.3 kg (285 lb) 01/17/2019 3:37 AM CDT Height 154.9 cm (5' 1 ) 01/16/2019 11:09 PM CDT Body Mass Index 53.85 01/16/2019 11:09 PM CDT documented in this encounter Functional [...] * Discharge Instructions* Jaswinder Gaytan MD - 01/17/2019 3:25 AM CDT Emergency Departments (ED) provide medical [...] care by your primary care physician or business info consultant. Your medication list was reviewed prior [...] such as many narcotic drug combinations and [id number] cold medicines. * Attachments The following attachments cannot be sent through Care Everywhere. * Muscle and Bone Pain Discharge Instructions (Romansh) documented in this encounter Medications at Time [...] as of this encounter ED Notes * Jamila Gibson RN - 01/17/2019 3:54 AM CDT Pt verbalizes understanding to use medication for pain and to follow up with outpatient US at 0830 today. No questions or concerns. Jamila Gibson RN * Jaswinder Gaytan MD - 01/17/2019 1:18 AM CDT Chief Complaint Chief Complaint Patient presents with ??? Leg Pain left History of Present Illness Chief complaint: LE pain Narrative: The patient is a very pleasant 63-year-old female examined in the emergency department. Pt reports pain to the left LE, just below the knee, medially, with associated swelling. The pain has been progressively worsening since Monday after a fall. She also c/o nausea and decreased appetite. Onset: worsening since Monday Palliative factors: heating pad Provoking factors: standing Quality: aching Radiation: up the leg Severity: mild/moderate Time course: constant Medical History ALLERGIES: Allergies Allergen Reactions ??? [...] Last attempt to quit: 03/23/1977 Years since quittin.8 ??? Smokeless tobacco: Never Used Substance Use Topics ??? Alcohol use: No ??? Drug use: No Review of Systems Review of Systems REVIEW OF SYSTEMS: The patient denies fevers, chills, or sweats. Denies vomiting, diarrhea, constipation, or abdominal pain. Complains of nausea. Denies chest pain, shortness of breath, dyspnea on exertion, or palpitations. Denies headache, loss of consciousness, or seizures. Denies dysuria or hematuria. Ten systems reviewed and negative except as described above or in the HPI. Physical Exam Filed Vitals: 01/16/19 2309 BP: (!) 121/96 Pulse: 77 Resp: 18 Temp: 98.8 ??F (37.1 ??C) TempSrc: Temporal SpO2: 97% Height: 5' 1 (1.549 m) Physical Exam VITALS: Filed Vitals: 01/16/19 2309 BP: (!) 121/96 Pulse: 77 Resp: 18 Temp: 98.8 ??F (37.1 ??C) TempSrc: Temporal SpO2: 97% Height: 5' 1 (1.549 m) VITALS: Reviewed GENERAL: The patient is a very pleasant 63-year-old female examined in the Emergency Department. Patient is in no acute distress at the time of my exam. EYES: Pupils are PERRL. Eyes focus and track. Sclerae are nonicteric and not injected. HENT: Normocephalic, atraumatic. The face is symmetric, round, and fully expressive. Hearing is adequate to conversational voice. Ears are without discharge. Nares are grossly patent, and also without discharge. Mucous membranes are moist. NECK: No JVD, tracheal deviation, or subcutaneous emphysema is noted. The bony spine is nontender. RESPIRATIONS: No respiratory distress. Pt is breathing easily, speaking in complete sentences. EXTREMITIES: There is pain on passive stretch to the patient's left calf (positive Homans sign). Distal CMS is intact. No bony deformity is noted. Slight edema is noted. Otherwise, the extremity examis unremarkable. No other clubbing, cyanosis, edema, or evidence of trauma is noted. NEURO: No gross focal neuro deficits are appreciated. GCS = 15. No seizure activity is noted in theemergency department. PSYCHIATRIC: The patient's mood, affect and interaction are appropriate to setting. SKIN: Normal color, temperature, and turgor noted throughout. Diagnostic Studies / Procedures LABORATORY STUDIES: Results for orders placed or performed during the hospital encounter of 01/17/19 CBC W/DIFF AUTOMATED Result Value Ref Range WBC 10.9 4.5 - 11.0 x10'3/uL RBC 4.39 4.20 - 5.40 x10'6/uL HGB 12.4 12.0 - 16.0 G/DL HCT 39.7 38.0 - 48.0 % MCV 90.4 81.0 - 99.0 FL MCH 28.2 27.0 - 31.0 PG MCHC 31.2 (L) 32.0 - 36.0 G/DL RDW 14.5 11.5 - 14.5 % PLT 343 130 - 400 x10'3/uL MPV 9.6 9.3 - 12.2 FL DIFFERENTIAL TYPE AUTOMATED DIFFERENTIAL NEUTROPHILS 65.1 % LYMPHOCYTES 23.4 % MONOCYTES 8.1 % EOSINOPHILS 2.7 % BASOPHILS 0.3 % IMMATURE GRANS 0.4 % ABS. NEUTROPHILS TOTAL 7.08 1.80 - 7.70 x10'3/uL ABS. LYMPHOCYTES 2.54 1.00 - 4.80 x10'3/uL ABS. MONOCYTES 0.88 (H) 0.24 - 0.86 x10'3/uL ABS. EOSINOPHILS 0.29 0.04 - 0.36 x10'3/uL ABS. BASOPHILS 0.03 0.01 - 0.08 x10'3/uL ABS. IMMATURE GRANULOCYTES 0.04 0.00 - 0.49 x10'3/uL PROTIME/INR, VENOUS Result Value Ref Range Protime 23.3 (H) 9.6 - 12.2 SEC INR 2.1 PARTIAL THROMBOPLASTIN TIME,PTT Result Value Ref Range PTT 41.5 (H) 25.5 - 37.6 SEC COMPREHENSIVE METABOLIC PANEL Result Value Ref Range GLUCOSE 161 (H) 70 - 99 MG/DL BUN 21 (H) 7 - 18 MG/DL CREATININE 0.87 0.55 - 1.02 MG/DL SODIUM 138 136 - 145 MMOL/L POTASSIUM 4.2 3.5 - 5.1 MMOL/L CHLORIDE 102 100 - 108 MMOL/L CO2 30.2 21 - 32 MMOL/L CALCIUM 9.6 8.5 - 10.1 MG/DL TOTAL BILIRUBIN 0.4 0.2 - 1.2 MG/DL TOTAL PROTEIN 8.2 6.4 - 8.2 G/DL ALBUMIN 3.3 (L) 3.4 - 5.0 G/DL AST 14 (L) 15 - 37 U/L ALT 25 14 - 55 U/L ALK PHOS 102 50 - 136 U/L ANION GAP 5.8 5 - 15 MMOL/L BUN CREATININE RATIO 24.1 6 - 26 A/G RATIO 0.7 (L) 1.0 - 2.0 RATIO eGFR Non-Afr. Amer. 71 (L) >90 ML/MIN/1.73 M2 eGFR Afr. Amer. 83 (L) >90 ML/MIN/1.73 M2 IMAGING STUDIES XR TIBIA+FIBULA LT 2V Final Result by User, [id number] (01/17 222) CLINICAL INDICATION: 63-year-old with diffuse leg pain after falling. Has been walking and leg 4 days. Pain is all over the leg and knee. TECHNIQUE: 6 view survey of the left tibia and fibula. Portable. COMPARISON: No previous imaging of the tibia and fibula. Left knee radiographs 08/28/2017 used as reference FINDINGS: There is no evidence of acute fracture or dislocation. The knee joint and ankle joint are intact. There is no knee joint effusion. Moderate narrowing of all 3 joint spaces and bridging osteophytosis across the medial and lateral joint space. Flattening and sclerosis of lateral greater than medial tibial plateau and femoral condyles. Soft tissues unremarkable. IMPRESSION: 1. No evidence of acute fracture or dislocation. 2. Stable advanced degenerative change in all 3 compartments of the knee. Interpreted By: Lore Ybarra DO, 01/17/2019 2:16 AM ED Course / Medical Decision Making Pulse oximetry interpreted by me: 97% on room air. Impression normal. For local policy, the patient is given Lovenox and scheduled for a vascular ultrasound in the morning. I estimate there is LOW risk for DISPLACED FRACTURE, COMPARTMENT SYNDROME, DISLOCATION, or SIGNIFICANT NERVE DAMAGE, thus I consider the discharge disposition reasonable. We have discussed the diagnosis and risks, and we agree with discharging home to follow-up with their primary doctor. We also discussed returning to the Emergency Department immediately if new or worsening symptoms occur. We have discussed the symptoms which are most concerning (e.g., pain distal to injury, fever, cold or numbextremity, changing or worsening pain) that necessitate immediate return. Pt and/or family member/significant other given my usual & customary discussion of signs & sxs to watch for in ext pain/injury and told if any worsening or new sxs to get immediate medical attention and to otherwise be sure to follow-up as directed. Clinical Impression Pain of left lower extremity (Primary) Disposition: Discharge I, Trudy Patel, acting as a scribe, am personally taking down the notes in the presence of Dr. Jaswinder Gaytan MD. Take no action on this note until reviewed and authenticated by the physician. Jaswinder Gaytan MD 01/17/19 0325 * Jamila Gibson RN - 01/17/2019 1:02 AM CDT Pt reports a fall last week in which she missed her step and her left leg has hurt since. Pt statesher knee sometimes hurts but most of the pain in on the medial left calf. Pt states The pain wakesme up from my sleep. Sometimes my whole leg hurts. I do not know if it is from the fall or not but I just want to make sure I do not have a blood clot. Pt states she missed two days of xarelto because she had not refilled her script over the weekend. Pt ambulatory with cane for assistance. Pt denies SOB or CP at this time. Will continue to monitor. * Jane Perez RN - 01/16/2019 11:10 PM CDT Pt to ed from home with left lower calf pain. Pt reports a fall last week onto left leg. Pt with dvt/PE hx and takes xarelto for. Pt has missed two doses of xarelto. CMS intact to LLE upon triage andpt denies any SOB. documented in this encounter Plan of Treatment Not on file documented as of this encounter Procedures Procedure Name Priority Date/Time Associated Diagnosis Comments PARTIAL THROMBOPLASTIN TIME,PTT STAT 01/17/2019 2:14 AM CDT PROTHROMBIN TIME, VENOUS STAT 01/17/2019 2:14 AM CDT COMPREHENSIVE METABOLIC PANEL STAT 01/17/2019 2:14 AM CDT CBC W/DIFF AUTOMATED STAT 01/17/2019 2:14 AM CDT XR TIBIA+FIBULA LT 2V STAT 01/17/2019 1:37 AM CDT documented in this encounter Results * (ABNORMAL) COMPREHENSIVE METABOLIC PANEL (01/17/2019 2:14 AM CDT) GLUCOSE 161(H) 70 - 99 MG/DL 01/17/2019 2:50 AM CDT [facility] BUN 21(H) 7 - 18 MG/DL 01/17/2019 2:50 AM CDT [facility] CREATININE S/P/B 0.87 0.55 - 1.02 MG/DL 01/17/2019 2:50 AM CDT [facility] SODIUM S/P/B 138 136 - 145 MMOL/L 01/17/2019 2:50 AM CDT [facility] POTASSIUM S/P/B 4.2 3.5 - 5.1 MMOL/L 01/17/2019 2:50 AM CDT [facility] CHLORIDE S/P/B 102 100 - 108 MMOL/L 01/17/2019 2:50 AM CDT [facility] CO2 30.2 21 - 32 MMOL/L 01/17/2019 2:50 AM CDT [facility] CALCIUM S/P/B 9.6 8.5 - 10.1 MG/DL 01/17/2019 2:50 AM T [facility] BILIRUBIN TOTAL S/P/B 0.4 0.2 - 1.2 MG/DL 01/17/2019 2:50 AM T [facility] TOTAL PROTEIN S/P/B 8.2 6.4 - 8.2 G/DL 01/17/2019 2:50 AM T [facility] ALBUMIN S/P/B 3.3(L) 3.4 - 5.0 G/DL 01/17/2019 2:50 AM T [facility] AST 14(L) 15 - 37 U/L 01/17/2019 2:50 AM T [facility] ALT 25 14 - 55 U/L 01/17/2019 2:50 AM T [facility] ALKALINE PHOSPHATASE S/P/B 102 50 - 136 U/L 01/17/2019 2:50 AM T [facility] ANION GAP 5.8 5 - 15 MMOL/L 01/17/2019 2:50 AM T [facility] BUN CREATININE RATIO 24.1 6 - 26 01/17/2019 2:50 AM T [facility] A/G RATIO 0.7(L) 1.0 - 2.0 RATIO 01/17/2019 2:50 AM T [facility] EGFR NON-AFR. AMER. 71(L) >90 ML/MIN/1.7 3 M2 01/17/2019 2:50 AM T [facility] EGFR AFR. AMER. 83(L) >90 ML/MIN/1.7 3 M2 01/17/2019 2:50 AM T [facility] Comment: NOTE: eGFR is not calculated for patients <18 years of age. This is an estimated GFR (CKD EPI) and should not be used for calculating drug doses. 01/17/2019 2:14 AM CDT us Jaswinder Gaytan MD LABORATORY Final Result Performing Organization Address City/[facility] Co de Phone Number [facility] [address] [place] [address], * (ABNORMAL) PARTIAL THROMBOPLASTIN TIME,PTT (01/17/2019 2:14 AM CDT) PTT 41.5(H) 25.5 - 37.6 SEC 01/17/2019 2:36 AM CDT [facility] 01/17/2019 2:14 AM CDT Jaswinder Gaytan MD LABORATORY Final Result Performing Organization Address [facility] Co de Phone Number [facility] [address] [place] [address], * (ABNORMAL) PROTIME/INR, VENOUS (01/17/2019 2:14 AM CDT) PROTIME 23.3(H) 9.6 - 12.2 SEC 01/17/2019 2:36 AM CDT [facility] INR 2.1 01/17/2019 2:36 AM CDT [facility] Comment: Recommended INR Therapeutic Goals: ??2.0-3.0 Routine Therapy ??2.5-3.5 Mechanical Prosthetic Valves (High Risk) ??3.0-4.0 Acute MO (to prevent Systemic Embolism) The INR is used only for patients on stable oral anticoagulant therapy. It makes no significant contribution to the diagnosis or treatment of patients whose Protime is prolonged for other reasons. 01/17/2019 2:14 AM CDT Jaswinder Gaytan MD LABORATORY Final Result [facility] [address] [place] [address], * (ABNORMAL) CBC W/DIFF AUTOMATED (01/17/2019 2:14 AM CDT) WBC 10.9 4.5 - 11.0 x10'3/uL 01/17/2019 2:30 AM CDT [facility] RBC 4.39 4.20 - 5.40 x10'6/uL 01/17/2019 2:30 AM CDT [facility] HGB 12.4 12.0 - 16.0 G/DL 01/17/2019 2:30 AM CDT [facility] HCT 39.7 38.0 - 48.0 % 01/17/2019 2:30 AM CDT [facility] MCV 90.4 81.0 - 99.0 FL 01/17/2019 2:30 AM CDT [facility] MCH 28.2 27.0 - 31.0 PG 01/17/2019 2:30 AM CDT [facility] MCHC 31.2(L) 32.0 - 36.0 G/DL 01/17/2019 2:30 AM CDT [facility] RDW 14.5 11.5 - 14.5 % 01/17/2019 2:30 AM CDT [facility] PLT 343 130 - 400 x10'3/uL 01/17/2019 2:30 AM CDT [facility] MPV 9.6 9.3 - 12.2 FL 01/17/2019 2:30 AM CDT [facility] DIFFERENTIAL TYPE AUTOMATED DIFFERENTIAL 01/17/2019 2:30 AM CDT [facility] NEUTROPHILS % 65.1 % 01/17/2019 2:30 AM CDT [facility] LYMPHOCYTES % 23.4 % 01/17/2019 2:30 AM CDT [facility] MONOCYTES % 8.1 % 01/17/2019 2:30 AM CDT [facility] EOSINOPHILS 2.7 % 01/17/2019 2:30 AM CDT [facility] BASOPHILS 0.3 % 01/17/2019 2:30 AM CDT [facility] IMMATURE GRANS % 0.4 % 01/18/20 19 2:30 AM CDT [facility] ABS. NEUTROPHILS TOTAL 7.08 1.80 - 7.70 x10'3/uL 01/17/2019 2:30 AM CDT [facility] ABS. LYMPHOCYTES 2.54 1.00 - 4.80 x10'3/uL 01/17/2019 2:30 AM CDT [facility] ABS. MONOCYTES 0.88(H) 0.24 - 0.86 x10'3/uL 01/17/2019 2:30 AM CDT [facility] ABS. EOSINOPHILS 0.29 0.04 - 0.36 x10'3/uL 01/17/2019 2:30 AM CDT [facility] ABS. BASOPHILS 0.03 0.01 - 0.08 x10'3/uL 01/17/2019 2:30 AM CDT [facility] ABS. IMMATURE GRANULOCYTES 0.04 0.00 - 0.49 x10'3/uL 01/17/2019 2:30 AM CDT [facility] 01/17/2019 2:14 AM CDT us Jaswinder Gaytan MD LABORATORY Final Result [facility] [address] [place] [address], * XR TIBIA+FIBULA LT 2V (01/17/2019 1:37 AM CDT) Anatomical Region Laterality Modality TibFib Radiographic Lizeth ging 01/17/2019 2:16 AM CDT Impressions 01/17/2019 2:21 AM CDT IMPRESSION: 1. ??No evidence of acute fracture or dislocation. 2. ??Stable advanced degenerative change in all 3 compartments of the knee. Interpreted By: Lore Ybarra DO, 01/17/2019 2:16 AM Narrative 01/17/2019 2:21 AM CDT CLINICAL INDICATION: 63-year-old with diffuse leg pain after falling. ??Has been walking and leg 4 days. ??Pain is all over the leg and knee. TECHNIQUE: 6 view survey of the left tibia and fibula. ??Portable. ?? COMPARISON: No previous imaging of the tibia and fibula. ??Left knee radiographs 08/28/2017 used as reference FINDINGS: ??There is no evidence of acute fracture or dislocation. ??The knee joint and ankle joint are intact. ??There is no knee joint effusion. ??Moderate narrowing of all 3 joint spaces and bridging osteophytosis across the medial and lateral joint space. ??Flattening and sclerosis of lateral greater than medial tibial plateau and femoral condyles. ??Soft tissues unremarkable. Procedure Note Lore Ybarra MD - 01/17/2019 CLINICAL INDICATION: 63-year-old with diffuse leg pain after falling. Has been walking and leg4 days. Pain is all over the leg and knee. TECHNIQUE: 6 view survey of the left tibia and fibula. Portable. COMPARISON: No previous imaging of the tibia and fibula. Left knee radiographs08/28/2017 used as reference FINDINGS: There is no evidence of acute fracture or dislocation. The knee jointand ankle joint are intact. There is no knee joint effusion. Moderatenarrowing of all 3 joint spaces and bridging osteophytosis across themedial and lateral joint space. Flattening and sclerosis of lateralgreater than medial tibial plateau and femoral condyles. Soft tissuesunremarkable. IMPRESSION: 1. No evidence of acute fracture or dislocation. 2. Stable advanced degenerative change in all 3 compartments of theknee. Interpreted By: Lore Ybarra DO, 01/17/2019 2:16 AM Jaswinder Gaytan MD GENERAL IMAGING Final Result documented in this encounter Visit Diagnoses Diagnosis Pain of left lower extremity- Primary documented in this encounter Administered Medications Inactive Administered Medications - up to 3 most recent administrations Medication Order MAR Action Action Date Dose Rate Site enoxaparin (LOVENOX) 150 MG/ML syringe 135 mg 135 mg (rounded from 129.3 mg = 1 mg/kg ? 129.3 kg), Subcutaneous, Every 12 hours, First dose on Valeri 01/17/19 at 0330, Until Discontinued, Administer by deep SubQ injection alternating between the left or right anterolateral and left or right posterolateral abdominal wall. Given 01/17/2019 3:44 AM CDT 135 mg Right Lower Abdomen fentaNYL (SUBLIMAZE) 100 MCG/2ML injection 1 dose, Starting on Valeri 01/17/19 at 0212, Until Valeri 01/17/19 at 0215, Created by cabinet override fentaNYL (SUBLIMAZE) injection 50 mcg 50 mcg, Intravenous, Once, 1 dose, On Valeri 01/17/19 at 0215, If intravenous (IV) route has been ordered, give over 1-2 minutes. Given 01/17/2019 2:15 AM CDT 50 mcg documented in this encounter Active and Recently Administered Medications Times are shown in CDT. Scheduled Medication Order 01/15/2019 01/16/2019 01/17/2019 enoxaparin (LOVENOX) 150 MG/ML syringe 135 mg 135 mg (rounded from 129.3 mg = 1 mg/kg ? 129.3 kg), Subcutaneous, Every 12 hours, First dose on Valeri 01/17/19 at 0330, Until Discontinued, Administer by deep SubQ injection alternating between the left or right anterolateral and left or right posterolateral abdominal wall. 0344 (Given - Provid er: Jamila Gibson RN) fentaNYL (SUBLIMAZE) injection 50 mcg (COMPLETED) 50 mcg, Intravenous, Once, 1 dose, On Valeri 01/17/19 at 0215, If intravenous (IV) route has been ordered, give over 1-2 minutes. 0215 (Given - Provid er: Jamila Gibson RN) documented in this encounter Additional Health Concerns Infection Onset Date Last Indicated Resolved Time MRSA Comment:MRSA nares pos. 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 [facility] [address] [place] [address] PCP - General FAMILY PRACTICE 08/20/17 Meena Bansal MD [address] [facility] [address] [place] [address] Max Maintenance Tech CARDIOVASCULAR DISEASE 04/24/16 documented as of this encounter
--- OUTSIDE RECORDS SUMMARY | 2024-04-26 02:42 | XMS_ITS | Encounter Summary ---
Author Organization [facility] Address [address] [place] [address]. [place] [address] [place] [address] Care Team Providers Care General Helper Name Role Phone Lavonne Ram MD Primary Care Provider [phone] Meena Bansal MD Unavailable [phone] Encounter Details Date Type Department Care Team (Late st Contact Info) Description 11/02/2016 Abstract [facility] [place] [address] Kirit Sevilla MD [address] [facility] [address] [place] [address] Social History Tobacco Use Types Packs/Day Years Used Date Smoking Tobacco: Never Assessed Comments Unknown Sex and Gender Information Value Date Recorded Sex Assigned at Female 09/06/2020 12:50 AM CDT Legal Sex Female 10:47 AM CDT Gender Identity Female 09/06/2020 12:50 AM CDT Sexual Orientation Straight 03/18/2018 3: 01 AM [employer]ING [employer]ATION [employer]INE[employer] documented as of this encounter Plan of Treatment Not on file documented as of this encounter Procedures Procedure Name Priority Date/Time Associated Diagnosis Comments CKMB(MB FRACTION ONLY) TIMED 7 10:55 AM CDT TROPONIN, QUANT TIMED 11/02/2016 10:55 AM CDT CK (CPK) TIMED 11/02/2016 10:55 AM CDT CKMB(MB FRACTION ONLY) TIMED 7 8:30 AM CDT TROPONIN, QUANT TIMED 11/02/2016 8:30 AM CDT CK (CPK) TIMED 11/02/2016 8:30 AM CDT POCT GLUCOSE - SAVAGE DOCKED DEVICE Routine 11/02/2016 7:21 AM CDT HEMOGLOBIN, GLYCOSYLATED Routine 11/02/2016 6:00 AM CDT LIPID PANEL Routine 11/02/2016 6:00 AM CDT MRSA SCREENING Routine 11/02/2016 5:51 AM CDT PROCALCITONIN (PCT) Routine 11/02/2016 1 2:46 AM CDT BNP TIMED 11/02/2016 12:46 AM CDT CKMB(MB FRACTION ONLY) TIMED 7 12:46 AM CDT TROPONIN, QUANT TIMED 11/02/2016 12:46 AM CDT CK (CPK) TIMED 11/02/2016 12:46 AM CDT PARTIAL THROMBOPLASTIN TIME,PTT STAT 11/01/2016 11:07 PM CDT PROTHROMBIN TIME, VENOUS STAT 11/01/2016 11:07 PM CDT COMPREHENSIVE METABOLIC PANEL STAT 11/01/2016 11:07 PM CDT D-DIMER, QUANTITATIVE STAT 11/01/2016 11:07 PM CDT CKMB(MB FRACTION ONLY) STAT 7 11:07 PM CDT CBC W/DIFF AUTOMATED STAT 11/01/2016 11:07 PM CDT TROPONIN, QUANT STAT 11/01/2016 11:07 PM CDT CK (CPK) STAT 11/01/2016 11:07 PM CDT documented in this encounter Results * CK (CPK) (11/02/2016 10:55 AM CDT) CPK 64 26 - 192 U/L 11/02/2016 11:35 AM CDT [facility] SERUM OR PLASMA SPECIMEN / Unknown 11/02/2016 10:55 AM CDT 11/02/2016 11:11 AM CDT us Generic Conversion Md DURÁN LABORATORY Final R esult Performing Organization Address City/[facility]/ZIP Co de Phone Number [facility] [address] [place] [address], [place] [phone] * TROPONIN, QUANT (11/02/2016 10:55 AM CDT) TROPONIN I <0.30 <0.30 ng/mL 11/02/2016 11:34 AM CDT [facility] SERUM OR PLASMA SPECIMEN / Unknown 11/02/2016 10:55 AM CDT 11/02/2016 11:11 AM CDT us Generic Conversion Md [facility]OR[facility] Final R esult [facility] [address] [place] [address], * CKMB(MB FRACTION ONLY) (11/02/2016 10:55 AM CDT) CK-MB 2.31 <4.30 ng/mL 11/02/2016 11:34 AM CDT [facility] SERUM OR PLASMA SPECIMEN / Unknown 11/02/2016 10:55 AM CDT 11/02/2016 11:11 AM CDT Generic Conversion Md [facility] LABORAT[facility] Final R esvincent Performing Organization Address City/[facility]/ZIP Co de Phone Number [facility] [address] [place] [address], * CK (CPK) (11/02/2016 8:30 AM CDT) CPK 68 26 - 192 U/L 11/02/2016 9:16 AM CDT [facility] SERUM OR PLASMA SPECIMEN / Unknown 11/02/2016 8:30 AM CDT 11/02/2016 8:51 AM CDT Generic Conversion Md [facility] LABORAT[facility] Final R jaja Performing Organization Address [facility]/ZIP Co de Phone Number [facility] [address] [place] [address], [place] [phone] * TROPONIN, QUANT (11/02/2016 8:30 AM CDT) TROPONIN I <0.30 <0.30 ng/mL 11/02/2016 9:14 AM CDT [facility] SERUM OR PLASMA SPECIMEN / Unknown 11/02/2016 8:30 AM CDT 11/02/2016 8:51 AM CDT Generic Conversion Md [facility] LABORAT[facility] Final R esvincent Performing Organization Address City/[facility]/ZIP Co de Phone Number [facility] [address] [place] [address], * CKMB(MB FRACTION ONLY) (11/02/2016 8:30 AM CDT) CK-MB 2.51 <4.30 ng/mL 11/02/2016 9:14 AM CDT [facility] SERUM OR PLASMA SPECIMEN / Unknown 11/02/2016 8:30 AM CDT 11/02/2016 8:51 AM CDT us Generic Conversion Md [facility] LABORAT[facility] Final R esult [facility] [address] [place] [id number], * (ABNORMAL) POCT glucose (11/02/2016 7:21 AM CDT) GLUCOSE POC 184(H) 70 - 99 mg/dL 11/02/2016 8:13 AM CDT [facility] ORDERS INTERFACE 11/02/2016 7:21 AM CDT 11/02/2016 8:13 AM CDT Generic Conversion Md DURÁN POCT ORDERABLES - DEVIC E Final Result [facility] ORDERS INTERFACE US * (ABNORMAL) LIPID PANEL (11/02/2016 6:00 AM CDT) CHOLESTEROL 165 <200 MG/DL 11/02/2016 10:12 AM CDT [facility] Comment: NOTE: Acetaminophen, N Acetyl p benzoquinone imine (NAPQI), N acetylcysteine (NAC), Metamizole, 4 Aminoantipyrine (4 AAP) and 4 Methylamino antipyrine (4 MAP) at high concentrations can cause falsely low results on Lactate, Uric Acid, Cholesterol, Triglyceride, HDL, and Direct LDL. TRIGLYCERIDES 111 <150 MG/DL 11/02/2016 10:12 AM CDT [facility] HDL 41(L) >59 MG/DL 11/02/2016 10:12 AM CDT [facility] LDL (CALCULATED) 102(H) <100 MG/DL 11/02/2016 10:12 AM [facility] NON HDL CHOLESTEROL 124 <130 MG/DL 11/02/2016 10:12 AM [facility] Comment: NOTE: WHEN THE TRIGLYCERIDES ARE >200 mg/dL, NON HDL C IS A SECONDARY TARGET OF THERAPY, WITH A GOAL 30 mg/dL HIGHER THAN THE IDENTIFIED LDL C GOAL. CHOL/HDL RATIO 4.0 0.0 - 4.5 11/02/2016 10:12 AM [facility] VLDL CALCULATION 22 5 - 55 MG/DL 11/02/2016 10:12 AM [facility] LIPID INTERPRETATION 11/02/2016 10:12 AM [facility] Comment: NIH CONCENSUS REPORT RECOMMENDATIONS: ?ADULT ?CHILD ??LOW RISK: ?CHOLESTEROL ? <200 ? <170 ?TRIGLYCERIDE ?<150 ?--- ?HDL ? >=60 ?--- ?LDL ? <100 ? <110 ??BORDERLINE: ?CHOLESTEROL ? 200-239 ?? 170-199 ?TRIGLYCERIDE ?150-199 ? --- ?HDL ?40-59 ?--- ?LDL ? 100-159 ?? 110-129 ??HIGH RISK: ?CHOLESTEROL ? >=240 ?>=200 ?TRIGLYCERIDE ?>=200 ? --- ?HDL ?<40 ?--- ?LDL ? >=160 ?>=130 11/02/2016 6:00 AM CDT 11/02/2016 9:58 AM CDT Generic Conversion Md [facility] LABORAT[facility] Final R esvincent Performing Organization Address [facility] de Phone Number [facility] [address] [place] [address], * (ABNORMAL) HEMOGLOBIN, GLYCOSYLATED (11/02/2016 6:00 AM CDT) HGB A1C 8.2(H) 4.8 - 5.6 % 11/02/2016 10:13 AM CDT [facility] Comment: ADA GUIDELINES 2010 5.7 TO 6.4% INCREASED RISK OF DIABETES > OR = 6.5% CONSISTENT WITH DIABETES ESTIMATED AVG GLUCOSE 189 mg/dL 11/02/2016 10:13 AM CDT [facility] 11/02/2016 6:00 AM CDT 11/02/2016 9:58 AM CDT Generic Conversion Md D[facility] LABORAT[facility] Final R esvincent Performing Organization Address [facility] de Phone Number [facility] [address] [place] [address], * MRSA SCREENING (11/02/2016 5:51 AM CDT) SPEC DESCRIPTION NASAL 11/02/2016 5:51 AM CDT [facility] SPECIAL REQUESTS NO SPECIAL REQUEST 11/02/2016 5:51 AM CDT [facility] CULTURE RESULT METHICILLIN RESISTANT STAPH AUREUS PRESENT FOLLOW ISOLATION PROTOCOL. 11/03/2016 7:40 AM CDT [facility] CULTURE RESULT POSITIVE RESULTS NEED PHONED TO PHYSICIAN, BY NURSING STAFF, MALDONADO, FOR POSSIBLE DECOLONIZATION PROTOCOL ORDERS. 11/03/2016 7:40 AM CDT [facility] SPECIMEN FROM INTERNAL NOSE / Unknown 11/02/2016 5:51 AM CDT 11/02/2016 5:53 AM CDT Generic Conversion Md DURÁN MICROBIOLOGY - GENERAL ORDERABLES Final Result Performing Organization Address [facility]/ZIP Co de Phone Number [facility] [address] [place] [address], * PROCALCITONIN (PCT) (11/02/2016 12:46 AM CDT) Procalcitonin <0.05 <0.5 NG/ML 11/02/2016 2:58 AM CDT [facility] SERUM OR PLASMA SPECIMEN / Unknown 11/02/2016 12:46 AM CDT 11/02/2016 12:52 AM CDT Generic Ashok Durán MD LABORATORY Final R esult Performing Organization Address City/[facility]/ZIP Co de Phone Number [facility] [address] [place] [address], * CK (CPK) (11/02/2016 12:46 AM CDT) CPK 70 26 - 192 U/L 11/02/2016 1:13 AM CDT [facility] SERUM OR PLASMA SPECIMEN / Unknown 11/02/2016 12:46 AM CDT 11/02/2016 12:52 AM CDT us Generic Conversion Md [facility] LABORAT[facility] Final R jaja Performing Organization Address City/[facility]/ZIP Co de Phone Number [facility] [address] [place] [address], * BNP (11/02/2016 12:46 AM CDT) B TYPE NATRIURETIC PEPTIDE <5.0 <100.0 pg/mL 11/02/2016 1:16 AM CDT [facility] WHOLE BLOOD SPECIMEN / Unknown 11/02/2016 12:46 AM CDT 11/02/2016 12:52 AM CDT Generic Conversion Md [facility] LABORAT[facility] Final R jaja Performing Organization Address [facility]/ZIP Co de Phone Number [facility] [address] [place] [address], * TROPONIN, QUANT (11/02/2016 12:46 AM CDT) TROPONIN I <0.30 <0.30 ng/mL 11/02/2016 1:12 AM CDT [facility] SERUM OR PLASMA SPECIMEN / Unknown 11/02/2016 12:46 AM CDT 11/02/2016 12:53 AM CDT us Generic Conversion Md [facility] LABORAT[facility] Deborah R jaja Performing Organization Address City/[facility]/ZIP Co de Phone Number [facility] [address] [place] [address], [place] [phone] * CKMB(MB FRACTION ONLY) (11/02/2016 12:46 AM CDT) CK-MB 2.54 <4.30 ng/mL 11/02/2016 1:12 AM CDT [facility] SERUM OR PLASMA SPECIMEN / Unknown 11/02/2016 12:46 AM CDT 11/02/2016 12:53 AM CDT Generic Conversion Md D[facility]N LABORATORY Final R jaja Performing Organization Address City/[facility]/ZIP Co de Phone Number [facility] [address] [place] [address], * TROPONIN, QUANT (11/01/2016 11:07 PM CDT) TROPONIN I <0.30 <0.30 ng/mL 11/01/2016 11:32 PM CDT [facility] SERUM OR PLASMA SPECIMEN / Unknown 11/01/2016 11:07 PM CDT 11/01/2016 11:13 PM CDT us Generic Conversion Md DURÁN LABORATORY Final R esvincent Performing Organization Address [facility]/ZIP Co de Phone Number [facility] [address] [place] [address], * CKMB(MB FRACTION ONLY) (11/01/2016 11:07 PM CDT) CK-MB 3.02 <4.30 ng/mL 11/01/2016 11:32 PM CDT [facility] SERUM OR PLASMA SPECIMEN / Unknown 11/01/2016 11:07 PM CDT 11/01/2016 11:13 PM CDT us Generic Conversion Md DURÁN LABORATORY Final R esvincent Performing Organization Address City/[facility]/ZIP Co de Phone Number [facility] [address] [place] [address], * PARTIAL THROMBOPLASTIN TIME,PTT (11/01/2016 11:07 PM CDT) PTT 32.5 25.5 - 37.6 SEC 11/01/2016 11:38 PM CDT [facility] PLASMA SPECIMEN / Unknown 11/01/2016 11:07 PM CDT 11/01/2016 11:12 PM CDT Generic Conversion Md DURÁN LABORATORY Final R jaja Performing Organization Address City/[facility] Co de Phone Number [facility] [address] [place] [address], [place] [phone] * (ABNORMAL) PROTIME/INR, VENOUS (11/01/2016 11:07 PM CDT) PROTIME 12.5(H) 9.6 - 12.2 SEC 11/01/2016 11:38 PM CDT [facility] INR 1.1 11/01/2016 11:38 PM CDT [facility] Comment: Recommended INR Therapeutic Goals: ??2.0-3.0 Routine Therapy ??2.5-3.5 Mechanical Prosthetic Valves (High Risk) ??3.0-4.0 Acute NC (to prevent Systemic Embolism) The INR is used only for patients on stable oral anticoagulant therapy. It makes no significant contribution to the diagnosis or treatment of patients whose Protime is prolonged for other reasons. 11/01/2016 11:0 7 PM CDT 11/01/2016 11:12 PM CDT us Generic Conversion Md [facility] Deborah wilkinson Performing Organization Address City/[facility]/ZIP Co de Phone Number [facility] [address] [place] [address], [place] [phone] * D-DIMER, QUANTITATIVE (11/01/2016 11:07 PM CDT) D-DIMER <150 0 - 230 D DU ng/mL 11/01/2016 11:45 PM CDT [facility] Comment: TESTING PERFORMED ON [employer] TOP 300 ANALYZER. NOTE: RESULTS OF THIS [...] SEVERE SKIN INFECTIONS, LIVER CIRRHOSIS OR . PLASMA SPECIMEN / Unknown 11/01/2016 11:07 PM CDT 11/01/2016 11:12 PM CDT us Generic Conversion Md DURÁN LABORATORY Final R [facility] Performing Organization Address [facility]/ZIP Co de Phone Number [facility] [address] [place] [address], [place] [phone] * CK (CPK) (11/01/2016 11:07 PM CDT) CPK 84 26 - 192 U/L 11/01/2016 11:34 PM CDT [facility] SERUM OR PLASMA SPECIMEN / Unknown 11/01/2016 11:07 PM CDT 11/01/2016 11:12 PM CDT us Generic Conversion Md DURÁN LABORATORY Final R [facility] Performing Organization Address [facility] Co de Phone Number [facility] [address] [place] [address], [place] [phone] * (ABNORMAL) COMPREHENSIVE METABOLIC PANEL (11/01/2016 11:07 PM CDT) GLUCOSE 228(H) 70 - 99 mg/dL 11/01/2016 11:34 PM CDT [facility] BUN 18 8 - 23 mg/dL 11/01/2016 11:34 PM CDT [facility] CREATININE S/P/B 0.64 0.60 - 1.10 mg/dL 11/01/2016 11:34 PM CDT [facility] SODIUM S/P/B 136 136 - 145 mmol/L 11/01/2016 11:34 PM CDT [facility] POTASSIUM S/P/B 4.3 3.5 - 5.1 mmol/L 11/01/2016 11:34 PM T [facility] CHLORIDE S/P/B 96(L) 98 - 107 mmol/L 11/01/2016 11:34 PM CDT [facility] CO2 27 22 - 29 mmol/L 11/01/2016 11:34 PM CDT [facility] BILIRUBIN TOTAL S/P/B 0.4 0.2 - 1.2 mg/dL 11/01/2016 11:34 PM T [facility] CALCIUM S/P/B 9.8 8.6 - 10.2 mg/dL 11/01/2016 11:34 PM T [facility] ALKALINE PHOSPHATASE S/P/B 66 35 - 104 U/L 11/01/2016 11:34 PM T [facility] AST 19 0 - 32 U/L 11/01/2016 11:34 PM T [facility] TOTAL PROTEIN S/P/B 8.4(H) 6.4 - 8.3 g/dL 11/01/2016 11:34 PM T [facility] ALBUMIN S/P/B 3.9 3.5 - 5.2 g/dL 11/01/2016 11:34 PM CDT [facility] ALT 22 0 - 33 U/L 11/01/2016 11:34 PM T [facility] GLOBULIN 4.5(H) 2.3 - 3.6 g/dL 11/01/2016 11:34 PM T [facility] A/G RATIO 0.9(L) 1.0 - 2.0 11/01/2016 11:34 PM T [facility] ANION GAP 17 8 - 20 11/01/2016 11:34 PM CDT [facility] EGFR NON-AFR. AMER. >60 >60 mL/min/1.7 3m'2 11/01/2016 11:34 PM CDT [facility] EGFR AFR. AMER. >60 >60 mL/min/1.7 3m'2 11/01/2016 11:34 PM CDT [facility] Comment: NOTE: eGFR is not calculated for patients <18 years of age. This is an estimated GFR (CKD EPI) and should not be used for calculating drug doses. 11/01/2016 11:0 7 PM CDT 11/01/2016 11:12 PM CDT us Generic Conversion Md DURÁN LABORATORY Final R esult [facility] [address] [place] [address], * (ABNORMAL) CBC W/DIFF AUTOMATED (11/01/2016 11:07 PM CDT) WBC 10.2 4.8 - 10.8 x10'3/uL 11/01/2016 11:15 PM CDT [facility] RBC 4.55 4.20 - 5.40 x10'6/uL 11/01/2016 11:15 PM CDT [facility] HGB 13.0 12.0 - 16.0 G/DL 11/01/2016 11:15 PM CDT [facility] HCT 40.8 38.0 - 48.0 % 11/01/2016 11:15 PM CDT [facility] MCV 89.7 81.0 - 99.0 FL 11/01/2016 11:15 PM CDT [facility] MCH 28.6 27.0 - 31.0 PG 11/01/2016 11:15 PM CDT [facility] MCHC 31.9(L) 32.0 - 36.0 G/DL 11/01/2016 11:15 PM CDT [facility] RDW 14.1 11.5 - 14.5 % 11/01/2016 11:15 PM CDT [facility] PLT 327 130 - 400 x10'3/uL 11/01/2016 11:15 PM CDT [facility] MPV 9.8 9.3 - 12.2 FL 11/01/2016 11:15 PM CDT [facility] IMMATURE GRANS % 0.5 0.0 - 1.0 % 11/01/2016 11:15 PM CDT [facility] NEUTROPHILS % 59.9 43.0 - 65.0 % 11/01/2016 11:15 PM CDT [facility] LYMPHOCYTES % 27.4 20.0 - 46.0 % 11/01/2016 11:15 PM CDT [facility] MONOCYTES % 8.5 5.0 - 12.0 % 11/01/2016 11:15 PM CDT [facility] EOSINOPHILS 3.2(H) 1.0 - 3.0 % 11/01/2016 11:15 PM CDT [facility] BASOPHILS 0.5 0.0 - 1.0 % 11/01/2016 11:15 PM CDT [facility] WHOLE BLOOD SPECIMEN / Unknown 11/01/2016 11:07 PM CDT 11/01/2016 11:12 PM CDT us Generic Conversion Md DUR[facility]N LAB[facility] Final R esult [facility] [address] [place] [address], [place] [phone] documented in this encounter Visit Diagnoses Diagnosis Other chest pain documented in this encounter Care Teams General Helper Relationship Specialty Start Date End Date Lavonne Ram MD [address] [place] [address] PCP - General FAMILY PRACTICE 04/24/16 08/19/17 Meena Bansal MD [address] [address] [place] Search Engine Optimization Strategist CARDIOVASCULAR DISEASE 04/24/16 documented as of this encounter
--- OUTSIDE RECORDS SUMMARY | 2024-04-26 02:42 | XMS_ITS | Encounter Summary ---
Author Organization [facility] Address [address] [place] [address]. [place] [address] [place] [address] Care Team Providers Care Manager Of Financial Planning Name Role Phone Meena Bansal MD Unavailable Gerardo Hoffman MD Primary Care Provider [phone] Reason for Referral * Imaging (Emergency) - Closed Specialty Diagnoses / Procedures Referred By Elyssa benavides Referred To Contact RADIOLOGY Procedures CT ABD+PEL W IV CON ONLY Leah Mackay NP Phone: tel: fax: Referral ID Status Reason Start Date Expiration Date Visits Re quested Visits Authorized [id number] Closed 08/30/2018 10/01/2019 1 1 Reason for Visit * Reason Comments Abdominal Pain * Auth/Cert Specialty Diagnoses / Procedures Referred By Elyssa benavides Referred To Contact Diagnoses Periumbilical abdominal pain Nausea vomiting and diarrhea Abdominal pain Referral ID Status Reason Start Date Expiration Date Visits Re quested Visits Authorized [id number] 1 1 Encounter Details Date Type Department Care Team (Late st Contact Info) Description 08/30/2018 2:32 PM CDT - 08/31/2018 4:12 PM CDT Emergency [facility] Med/Surg [address] [place] [address] Leah Mackay, [facility] [facility] [address] [place] [address] Eduardo Abel, [address] [place] [address] Abdominal Pain Discharge Disposition: Home or Self [...] Sexual Orientation Straight 03/18/2018 3: 01 AM [employer] documented as of this encounter Last Filed Vital Signs Vital Sign Reading Time Taken Comments Blood Pressure 107/63 08/31/2018 2:30 PM CDT Pulse 76 08/31/2018 2:30 PM CDT Temperature 36.5 ??C (97.7 ??F) 08/31/2018 2:30 PM CD T Respiratory Rate 18 08/31/2018 2:30 PM CDT Oxygen Saturation 99% 08/31/2018 2:30 PM CDT Inhaled Oxygen Concentration - - Weight 135.4 kg (298 lb 8.1 oz) 08/30/2018 9:53 PM CDT Height 154.9 cm (5' 1 ) 08/30/2018 9:53 PM CDT Body Mass Index 56.4 08/30/2018 9:53 PM CDT documented in this encounter Functional Status * Question Answer Date of Assessment Author Status Do you have serious difficulty walking or climbing stairs? Yes 08/30/2018 10:55 PM CDT Epi Carlos RN Acti ve * Question Answer Date of Assessment Author Status Do you have difficulty dressing or bathing? Yes 08/30/2018 10:55 PM CDT Epi Carlos RN Active Because of a physical, mental, or emotional condition, do you have difficulty doing errands alone such as visiting a doctor's office or shopping? Yes 08/30/2018 10:55 PM CDT Hans Carlos RN Active * RETIRED Are you deaf or do you have serious difficulty hearing Answer Date of Assessment Author Status Yes 08/30/2018 10:55 PM CDT Acti ve * RETIRED Are you blind or do you have serious difficulty seeing, even when wearing glasses? Answer Date of Assessment Author Status No 08/30/2018 10:55 PM CDT Acti ve * Do you have serious difficulty walking or climbing stairs? Answer Date of Assessment Author Status Yes 08/30/2018 10:55 PM CDT Epi Carlos R N Active * Do you have difficulty dressing or bathing? Answer Date of Assessment Author Status Yes 08/30/2018 10:55 PM CDT Epi Carlos R N Active * Because of a physical, mental, or emotional condition, do you have difficulty doing errands alone such as visiting a doctor's office or shopping? Answer Date of Assessment Author Status Yes 08/30/2018 10:55 PM CDT Epi Carlos R N Active documented as of this encounter Mental Status * Question Answer Entry Date Author Status Because of a physical, mental, or emotional condition, do you have serious difficulty concentrating, remembering, or making decisions? No 08/30/2018 10:55 PM CDT Epi Carlos RN Active * Because of a physical, mental, or emotional condition, do you have serious difficulty concentrating, remembering, or making decisions? Answer Entry Date Author Status No 08/30/2018 10:55 PM CDT Epi Carlos R N Active documented in this encounter Discharge Summaries * Michelle Rosas MD - 08/31/2018 1:22 PM CDT HOSPITAL DISCHARGE SUMMARY [facility] 08/31/18 Patient ID Mohsen Marques, female, 1955 Admitted 08/30/2018 2:32 PM, Discharged 08/31/[address] Eduardo Abel DO, PCP GERARDO HOFFMAN MD, Discharge Dr. MICHELLE AVILA MD, Dr. Gerardo Sheppard MD Primary Admission Diagnosis(es) Periumbilical abdominal pain [R10.33] Nausea vomiting and diarrhea [R11.2, R19.7] Primary Discharge Diagnosis(es) Abdominal pain Admitted in Stable, condition, discharged in Good condition to discharged to home Code Status Full Code Abbreviated Presentation, ED Course, and Hospital Course Mohsen Marques is a 63-year-old female who was admitted for abdominal pain, vomiting, inability to take PO. She had diarrhea but specimen was unacceptable for testing C. Diff. She also had a negative FOBT although on rectal exam, there was a hard mass palpated at 6 o'clock position. During admission, she received IVF until she was able to tolerate PO which she did very well on day of discharge. She was discharged with zofran. CT a/p w IV CON negative for acute processes. CXR remarkable for borderline cardiomegaly and no acute cardiopulmonary process. D-dimer was 860 but did not have any s/s of DVT or PE and has history of neoplasm so this value maynot be marketing representative. She was encouraged to seek outpatient colonoscopy. PCP Follow-Up Needed For: Further Work-up of Possible rectal mass Pending/Outpatient Studies Stool culture Follow-up Appts [employer] Pili Elkins on 09/07/18 at 1pm Discharge Medications Medication List ASK your doctor about these medications amitriptyline 25 MG tablet Commonly known as: ELAVIL exemestane 25 MG tablet Commonly known as: AROMASIN hydrocodone-acetaminophen 7.5-325 MG tablet Commonly known as: NORCO insulin lispro 100 UNIT/ML injection (VIAL) Commonly known as: HUMALOG LANTUS SOLOSTAR 100 UNIT/ML injection (PEN) Generic drug: insulin glargine lisinopril 20 MG tablet Commonly known as: PRINIVIL,ZESTRIL oxybutynin 5 MG tablet Commonly known as: DITROPAN ROPINIROLE HYDROCHLORIDE 5 MG Tabs XARELTO 20 MG Tabs tablet Generic drug: rivaroxaban Discharge Vitals and Exam Vitals: Temp: [98 ??F (36.7 ??C)-98.6 ??F (37 ??C)] 98 ??F (36.7 ??C) Pulse: [74-92] 74 Resp: [16-24] 18 BP: (104-166)/(62-99) 104/62 Physical Exam: Gen: NAD, pleasant HEENT: NC/AT. Cardiac: normal rate, regular rhythm, II/ murmur at left lower sternal border, no clicks, or rubs Pulmonary: CTAB. No increased work breathing. Abdomen: soft, mildly distended. Positive bowel sounds. Mild to moderate tenderness to palpation throughout. Pain is not localized. : small nonthrombosed hemorrhoid at the 12 oclock position. Internal exam palpated a small firm mass at the 6 o clock position. Extremities: no peripheral edema. Neuro: alert. Normal speech. Skin: no rashes. Patient Instructions Activity activity as tolerated, Diet Diet Carb Controlled Appropriate; 60g/meal Diet Carb Controlled, Assessment and Plan by Problem MICHELLE AVILA MD Comprehensive Study Results During Admission Results for orders placed or performed during the hospital encounter of 08/30/18 XR CHEST PORTABLE Narrative Date: 08/30/2018 4:13 PM Exam: XR CHEST PORTABLE Comparison: Chest radiography dated 03/17/2018, 08/20/2017. Technique: Single view chest. History: Lower abdominal pain. Pain started 3 days ago. Vomiting and diarrhea. Findings: The cardiac silhouette is upper limits of normal in size, but accentuated by portable technique. The vascularity is within normal limits. There are no consolidations or pleural effusions. There is no pneumothorax. The osseous structures appear normal. Impression Impression: Borderline cardiomegaly. No acute cardiopulmonary disease process. W/DIFF AUTOMATED Result Value Ref Range WBC 12.7 (H) 4.5 - 11.0 x10'3/uL RBC 4.75 4.20 - 5.40 x10'6/uL HGB 13.3 12.0 - 16.0 G/DL HCT 42.4 38.0 - 48.0 % MCV 89.3 81.0 - 99.0 FL MCH 28.0 27.0 - 31.0 PG MCHC 31.4 (L) 32.0 - 36.0 G/DL RDW 13.7 11.5 - 14.5 % PLT 349 130 - 400 x10'3/uL MPV 9.2 (L) 9.3 - 12.2 FL DIFFERENTIAL TYPE AUTOMATED DIFFERENTIAL NEUTROPHILS 70.4 % LYMPHOCYTES 19.1 % MONOCYTES 7.6 % EOSINOPHILS 2.2 % BASOPHILS 0.2 % IMMATURE GRANS 0.5 % ABS. NEUTROPHILS TOTAL 8.91 (H) 1.80 - 7.70 x10'3/uL ABS. LYMPHOCYTES 2.42 1.00 - 4.80 x10'3/uL ABS. MONOCYTES 0.96 (H) 0.24 - 0.86 x10'3/uL ABS. EOSINOPHILS 0.28 0.04 - 0.36 x10'3/uL ABS. BASOPHILS 0.03 0.01 - 0.08 x10'3/uL ABS. IMMATURE GRANULOCYTES 0.06 0.00 - 0.49 x10'3/uL COMPREHENSIVE METABOLIC PANEL Result Value Ref Range GLUCOSE 135 (H) 70 - 99 MG/DL BUN 16 7 - 18 MG/DL CREATININE 0.76 0.55 - 1.02 MG/DL SODIUM 137 136 - 145 MMOL/L POTASSIUM 4.0 3.5 - 5.1 MMOL/L CHLORIDE 104 100 - 108 MMOL/L CO2 29.6 21 - 32 MMOL/L CALCIUM 10.2 (H) 8.5 - 10.1 MG/DL TOTAL BILIRUBIN 0.6 0.2 - 1.2 MG/DL TOTAL PROTEIN 8.6 (H) 6.4 - 8.2 G/DL ALBUMIN 3.4 3.4 - 5.0 G/DL AST 18 15 - 37 U/L ALT 27 14 - 55 U/L ALK PHOS 102 50 - 136 U/L ANION GAP 7.4 (L) 8 - 20 MMOL/L BUN CREATININE RATIO 20.9 6 - 26 A/G RATIO 0.7 (L) 1.0 - 2.0 RATIO eGFR Non-Afr. Amer. 84 (L) >90 ML/MIN/1.73 M2 eGFR Afr. Amer. >90 >90 ML/MIN/1.73 M2 LIPASE Result Value Ref Range LIPASE 117 73 - 393 UNITS/L URINALYSIS Result Value Ref Range Specimen Type URINE CLEAN CATCH COLOR YELLOW TRANSPARENCY CLEAR Specific Reserve (U) 1.023 1.001 - 1.030 U PH 5.0 5.0 - 9.0 LEUKOCYTE ESTERASE TRACE (A) NEGATIVE NITRITES NEGATIVE NEGATIVE PROTEIN, URINE NEGATIVE <30 MG/DL URINE GLUCOSE NEGATIVE NEGATIVE MG/DL U KETONES NEGATIVE NEGATIVE MG/DL UROBILINOGEN NEGATIVE NEGATIVE MG/DL Urine Bilirubin NEGATIVE NEGATIVE MG/DL BLOOD SMALL (A) NEGATIVE CULTURE & SENSITIVITY INDICATED? SPECIMEN SETUP FOR CULTURE MUCUS RARE /LPF WBC/HPF 7 (H) <6 /HPF RBC/HPF 4 <6 /HPF LACTIC ACID Result Value Ref Range LACTIC ACID 0.9 0.4 - 2.0 MMOL/L D-DIMER, QUANTITATIVE Result Value Ref Range D-DIMER 860 (HH) 0 - 230 D DU ng/mL TROPONIN, QUANT Result Value Ref Range TROPONIN I <0.015 <0.045 ng/mL. CBC W/DIFF AUTOMATED Result Value Ref Range WBC 9.7 4.5 - 11.0 x10'3/uL RBC 4.06 (L) 4.20 - 5.40 x10'6/uL HGB 11.3 (L) 12.0 - 16.0 G/DL HCT 36.8 (L) 38.0 - 48.0 % MCV 90.6 81.0 - 99.0 FL MCH 27.8 27.0 - 31.0 PG MCHC 30.7 (L) 32.0 - 36.0 G/DL RDW 13.9 11.5 - 14.5 % PLT 283 130 - 400 x10'3/uL MPV 9.5 9.3 - 12.2 FL DIFFERENTIAL TYPE AUTOMATED DIFFERENTIAL NEUTROPHILS 63.3 % LYMPHOCYTES 24.0 % MONOCYTES 8.3 % EOSINOPHILS 3.5 % BASOPHILS 0.4 % IMMATURE GRANS 0.5 % ABS. NEUTROPHILS TOTAL 6.15 1.80 - 7.70 x10'3/uL ABS. LYMPHOCYTES 2.34 1.00 - 4.80 x10'3/uL ABS. MONOCYTES 0.81 0.24 - 0.86 x10'3/uL ABS. EOSINOPHILS 0.34 0.04 - 0.36 x10'3/uL ABS. BASOPHILS 0.04 0.01 - 0.08 x10'3/uL ABS. IMMATURE GRANULOCYTES 0.05 0.00 - 0.49 x10'3/uL BASIC METABOLIC PANEL Result Value Ref Range GLUCOSE 121 (H) 70 - 99 MG/DL BUN 16 7 - 18 MG/DL CREATININE 0.83 0.55 - 1.02 MG/DL SODIUM 139 136 - 145 MMOL/L POTASSIUM 4.3 3.5 - 5.1 MMOL/L CHLORIDE 104 100 - 108 MMOL/L CO2 30.0 21 - 32 MMOL/L CALCIUM 9.0 8.5 - 10.1 MG/DL ANION GAP 9.3 8 - 20 MMOL/L BUN CREATININE RATIO 19.2 6 - 26 eGFR Non-Afr. Amer. 76 (L) >90 ML/MIN/1.73 M2 eGFR Afr. Amer. 88 (L) >90 ML/MIN/1.[address] ABD+PEL W IV CON ONLY Narrative EXAMINATION: CT abdomen/pelvis with contrast HISTORY: Nausea, vomiting, and diarrhea. Abdominal pain. Symptoms for 4 days. COMPARISON: CT abdomen/pelvis 03/23/2017. TECHNIQUE: Axial CT images of the abdomen and pelvis after the uneventful intravenous administration of 100 mL of Isovue-370 given through the right antecubital fossa. Sagittal and coronal reformatted image sets. A dose lowering technique was used for this procedure, which may include, but is not limited to, dose reduction technique, automated exposure control, the use of degenerative reconstruction, and ALARA/image gently techniques. FINDINGS: The included lung bases appear clear. The heart is normally sized. The liver is normal in size and contour. No evidence of hepatic mass. The gallbladder is surgically absent. Mild biliary prominence which appears within normal limits given the cholecystectomy. No acute appearing pancreatic abnormalities. The spleen is normal in size and contour. No adrenal masses. The kidneys enhance symmetrically. No hydronephrosis or perinephric stranding. Small benign right renal hypodensity, unchanged since 2017. The abdominal aorta remains normal caliber. No retroperitoneal lymphadenopathy. No ascites or free intraperitoneal air. Findings along the anterior abdominal wall compatible with prior hernia repair. No bowel obstruction. Colonic diverticulosis without evidence of acute diverticulitis. The appendix is normal caliber. No colonic or enteric inflammatory changes identified. No free pelvic fluid. The urinary bladder is unremarkable. No adnexal masses. The uterus appears normally sized. Multiple pelvic phleboliths. Degenerative changes at the pubic symphysis. Bilateral sacroiliitis. No acute appearing osseous abnormalities identified. Mild multilevel degenerative changes in the spine. Impression IMPRESSION: No acute appearing abdominal or pelvic abnormalities identified. glucose Result Value Ref Range WHOLE BLOOD GLUCOSE 120 (A) 70 - 100 mg/dL POCT glucose Result Value Ref Range GLUCOSE POC 120 (H) 70 - 99 mg/dL POCT glucose Result Value Ref Range GLUCOSE POC 133 (H) 70 - 99 mg/dL POCT glucose Result Value Ref Range GLUCOSE POC 143 (H) 70 - 99 mg/dL POCT glucose Result Value Ref Range GLUCOSE POC 78 70 - 99 mg/dL ECG [address] 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 Description BLOOD Special Requests: NO SPECIAL REQUEST Culture Result: NO GROWTH 1 DAY CULTURE, BACTERIA, BLOOD Result Value Ref Range Spec. Description BLOOD Special Requests: NO SPECIAL REQUEST Culture Result: NO GROWTH 1 DAY Cosigned by Gerardo Sheppard MD at 08/31/2018 10:18 PM CDT Associated attestation - Gerardo Sheppard MD - 08/31/2018 10:18 PM CDT I have seen and examined the patient with the resident and I agree with the findings and plan of care as documented by the resident. documented in this encounter Discharge Instructions * Attachments The following attachments cannot be sent through Care Everywhere. * Ondansetron, ADULT (Faroese) * Acute Abdomen (Belly Pain) Discharge Instructions, Adult (Faroese) documented in this encounter Medications at Time [...] by mouth nightly at bedtime. 10/13/19 24 hydrocodone-acetami nophen 7.5-325 MG tablet Take 1-2 tablets by mouth every 4 (four) hours as needed for Pain. 07/01/19 20 lisinopril 20 MG tablet Take 20 mg by mouth daily. 10/13/19 24 ondansetron 4 MG disintegrating tablet Take 1 tablet (4 mg total) by mouth every 8 (eight) hours for 7 days. 20 tablet 9 09/08/19 19 oxybutynin 5 MG tablet Take 5 mg by mouth 2 (two) times daily. 10/13/19 24 XARELTO 20 MG Tab tablet Take 20 mg by mouth every evening. 11 8 09/10/19 19 documented as of this encounter Progress Notes * Mary Hernandez RN - 08/31/2018 11:42 AM CDT NCM performed bedside interview: Support: -Jimmie [...] Concerns: None PCP: Gerardo Hoffman Insurance Plan: [facility] Notes: Pt's dtr is paid through [facility] 20 hrs a week to assist with ADL's. Discharge needs: Care Coordination Team will provide discharge planning as needed, and will re-evaluate based on recommendations and treatment course. * Harvey Rubin - 08/31/2018 10:41 AM CDT 08/31/18 1000 Sacramental Encounters Communion Patient wants communion Sacrament of Sick-Anointing yes Anointed by/date dvoss o5 2018 * Nate Dawson MD - 08/30/2018 10:02 PM CDTAssociated Problem(s): Low back pain Chronic. Controlled. -Continue home norco. * Nate Dawson MD - 08/30/2018 10:01 PM CDTAssociated Problem(s): Type 2 diabetes mellitus ([facility] HHS/HCC) Chronic. Controlled. -continue home insulin regimen of lantus 50 units q am -lispro 20 units with breakfast and lunch. 22 units with dinner. * Nate Dawson MD - 08/30/2018 9:57 PM CDTAssociated Problem(s): High blood pressure Chronic. Controlled. -continue home medications * Nate Dawson MD - 08/30/2018 9:55 PM CDTAssociated Problem(s): Malignant neoplasm of upper-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 ([facility] HHS/HCC) S/p masectomy. -continue exemestane * Nate Dawson MD - 08/30/2018 9:55 PM CDTAssociated Problem(s): Pulmonary embolism ([facility]) History of PE and DVT. -continue xarelto * Nate Dawson MD - 08/30/2018 9:43 PM CDTAssociated Problem(s): Pain in the abdomen Acute. Present on admission. Unclear source of [...] and firm mass palpated on rectal exam documented in this encounter H&P Notes * Nate Dawson MD - 08/31/2018 12:16 AM CDT HISTORY AND PHYSICAL EXAM DATE: 08/31/2018 CC: Abdominal pain HPI: Mohsen Marques is a 63-year-old right female with a past medical history of type 2 diabetes, pulmonary embolism/DVT, breast cancer, low back pain on chronic narcotics, hypertension, obstructive sleep apnea, and hypothyroidism who presents with abdominal pain. Her abdominal pain started 3 days ago. It has been accompanied with loose stools. She also notes mucus in the diarrhea. The abdominal pain is located in the center of her abdomen. She describes the pain as a constant/achy pain. She reports that her stools are brown or yellow- colored. She also reports that she might have seen a streak of blood in the stool when she wiped today but is unsure if there was any blood. Her pain earlier was a 10 out of 10, but now her pain is a 4 out of 10. She also reports nausea and vomiting. She had 3episodes of vomiting yesterday which was nonbloody. She has not been able to eat or drink anything at all today because of the nausea. She denies any fevers, chills, chest pain, shortness of breath, d ysuria, recent travel, no new foods or new restaurants. She reports no sick contacts. REVIEW OF SYSTEMS: ROS per HPI ED COURSE: She was given several doses of IV pain medications and IV fluids. PAST MEDICAL HISTORY: Past Medical History: Diagnosis Date ??? Arthritis ??? Blood clot in vein ??? Breast cancer (CMS/HCC) ??? Cancer (CMS/HCC) ??? Diabetes mellitus (CMS/HCC) ??? Disease of thyroid gland ??? Hypertension ??? Kidney stones ??? Neuropathy ??? Restless leg syndrome ??? Spinal headache Has Bulging disc in lower back and Neck SURGICAL HISTORY: Past Surgical History: Procedure Laterality Date ??? SECTION ??? CHOLECYSTECTOMY ??? HERNIA REPAIR ??? MASTECTOMY ??? TOTAL KNEE ARTHROPLASTY ALLERGIES: Allergies Allergen Reactions ??? Ativan [Lorazepam] [...] mouth every evening. 08/08/17 Yes Doc Abstract SOCIAL HISTORY: Social History Socioeconomic History ??? Marital status: [...] file Gets together: Not on file Attends baptism service: Not on file Active member of [...] Social History Narrative ??? Not on file FAMILY HISTORY: Family History Problem Relation Name Age of Onset ??? Aneurysm Mother ??? Diabetes Mother ??? Heart Disease Mother ??? Hyperlipidemia Mother ??? Hypertension Mother ??? Stroke Mother ??? Cancer Father ??? Cancer Sister ??? COPD Sister ??? Depression Sister ??? Cancer Brother PRIMARY CARE PROVIDER: GERARDO HOFFMAN MD CODE STATUS: Full Code PHYSICAL EXAM: Vitals: Blood pressure 142/78, pulse 77, temperature 98.2 ??F (36.8 ??C), resp. rate 20, height 5' 1 (1.549 m), weight 135.4 kg (298 lb 8.1 oz), SpO2 100 %., Body mass index is 56.4 kg/m??. Temp: [98.2 ??F (36.8 ??C)-98.6 ??F (37 ??C)] 98.2 ??F (36.8 ??C) Pulse: [77-92] 77 Resp: [16-24] 20 BP: (129-166)/(77-99) 142/78 Physical Exam Gen: NAD, pleasant HEENT: NC/AT. Cardiac: normal rate, regular rhythm, II/ murmur at left lower sternal border, no clicks, or rubs Pulmonary: CTAB. No increased work breathing. Abdomen: soft, mildly distended. Positive bowel sounds. Moderate tenderness to palpation throughout. Pain is not localized. : small nonthrombosed hemorrhoid at the 12 oclock position. Internal exam palpated a small firm mass at the 6 o clock position. Extremities: no peripheral edema. Neuro: alert. Normal speech. Skin: no rashes. Labs: Recent Labs Lab 08/30/18 1448 WBC 12.7* RBC 4.75 HGB 13.3 HCT 42.4 MCV 89.3 MCH 28.0 MCHC 31.4* PLT 349 RDW 13.7 MPV 9.2* PERNEU 70.4 PERLYM 19.1 PERMON 7.6 LYMC 2.42 MONOC 0.96* EOSC 0.28 BASOC 0.03 DTYPE AUTOMATED DIFFERENTIAL Recent Labs Lab 08/30/18 1448 NA 137 K 4.0 CL 104 CO2 29.6 AGAP 7.4* BUN 16 CR 0.76 BUNCREATININ 20.9 GFRNON 84* GFR >90 GLU 135* CA 10.2* TP 8.6* ALB 3.4 TBIL 0.6 ALKP 102 AST 18 ALT 27 No results for input(s): PTT, INR in the last 168 hours. Recent Labs Lab 08/31/18 0017 TROP <0.015 Recent Labs Lab 08/30/18 1624 LACTICACID 0.9 No results for input(s): PH, PCO2, PO2, [id number], BICARBWB, BASEDEFICIT, BASEEXCESS in the [id number] hours. Cultures: Blood: No results found for this visit on 08/30/18 (from the past 168 hour(s)). Urine: No results found for this visit on 08/30/18 (from the past 168 hour(s)). Cardiac: No results found for this visit on 08/30/18. Radiology studies: CT ABD+PEL W IV CON ONLY Final Result by User, [id number] (08/30 6446) EXAMINATION: CT abdomen/pelvis with contrast HISTORY: Nausea, vomiting, and diarrhea. Abdominal pain. Symptoms for 4 days. COMPARISON: CT abdomen/pelvis 03/23/2017. TECHNIQUE: Axial CT images of the abdomen and pelvis after the uneventful intravenous administration of 100 mL of Isovue-370 given through the right antecubital fossa. Sagittal and coronal reformatted image sets. A dose lowering technique was used for this procedure, which may include, but is not limited to, dose reduction technique, automated exposure control, the use of degenerative reconstruction, and ALARA/image gently techniques. FINDINGS: The included lung bases appear clear. The heart is normally sized. The liver is normal in size and contour. No evidence of hepatic mass. The gallbladder is surgically absent. Mild biliary prominence which appears within normal limits given the cholecystectomy. No acute appearing pancreatic abnormalities. The spleen is normal in size and contour. No adrenal masses. The kidneys enhance symmetrically. No hydronephrosis or perinephric stranding. Small benign right renal hypodensity, unchanged since 2016. The abdominal aorta remains normal caliber. No retroperitoneal lymphadenopathy. No ascites or free intraperitoneal air. Findings along the anterior abdominal wall compatible with prior hernia repair. No bowel obstruction. Colonic diverticulosis without evidence of acute diverticulitis. The appendix is normal caliber. No colonic or enteric inflammatory changes identified. No free pelvic fluid. The urinary bladder is unremarkable. No adnexal masses. The uterus appears normally sized. Multiple pelvic phleboliths. Degenerative changes at the pubic symphysis. Bilateral sacroiliitis. No acute appearing osseous abnormalities identified. Mild multilevel degenerative changes in the spine. IMPRESSION: No acute appearing abdominal or pelvic abnormalities identified. CHEST PORTABLE Final Result by User, [id number] (08/30 2529) Date: 08/30/2018 4:13 PM Exam: XR CHEST PORTABLE Comparison: Chest radiography dated 03/17/2018, 08/20/2017. Technique: Single view chest. History: Lower abdominal pain. Pain started 3 days ago. Vomiting and diarrhea. Findings: The cardiac silhouette is upper limits of normal in size, but accentuated by portable technique. The vascularity is within normal limits. There are no consolidations or pleural effusions. There is no pneumothorax. The osseous structures appear normal. Impression: Borderline cardiomegaly. No acute cardiopulmonary disease process. SSMENT AND PLAN: Patient is a 63-year-old female with PMHx of type 2 diabetes, pulmonary embolism/DVT, breast cancer, low back pain on chronic narcotics, hypertension, obstructive sleep apnea, and hypothyroidism who presents with abdominal pain. Nervous Low back pain Assessment & Plan Chronic. Controlled. -Continue home norco. * Pain in the abdomen Assessment & Plan Acute. Present on admission. Unclear source of [...] and firm mass palpated on rectal exam Respiratory PE (pulmonary thromboembolism) ([facility]/HCC) Assessment & Plan History of PE and DVT. -continue xarelto Circulatory Hypertension Assessment & Plan Chronic. Controlled. -continue home medications Endocrine Type 2 diabetes mellitus ([facility]/HCC) Assessment & Plan Chronic. Controlled. -continue home insulin regimen of lantus 50 units q am -lispro 20 units with breakfast and lunch. 22 units with dinner. Other Bilateral malignant neoplasm of breast in female ([facility]) Assessment & Plan S/p masectomy. -continue exemestane Fluids: LR at 150 cc/hr Diet: carb controlled VTE Prophylaxis: xarelto DISPOSITION: Pending clinical improvement Plan discussed with attending physician. NATE DAWSON MD Family Medicine, PGY-2 Cosigned by Gerardo Sheppard MD at 08/31/2018 10:25 PM CDT Associated attestation - Gerardo Sheppard MD - 08/31/2018 10:25 PM CDT I have seen and examined the patient with the resident and I agree with the findings and plan of care as documented by the resident. documented in this encounter ED Notes * Maira Bocanegra RN - 08/30/2018 4:46 PM CDT Provider spoke to radiologist and agreed that we can go forward with the CT with contrast. * Maira Bocanegra RN - 08/30/2018 4:[address] called to inquire about the CT she had yesterday. They wanted to know if she got it with contrast and what time it was. Patient states she had a CT with contrast around [address] said they are unable to do a CT with contrast until 2100 today. Provider notified. * Leah Mackay, APNP - 08/30/2018 3:45 PM CDT Emergency Department Note Chief Complaint Chief Complaint Patient presents with ??? Abdominal Pain History of Present Illness c/o constant aching in mid abdomen for 4 days with bouts of sharp periumbilical pain, nausea and vomiting and diarrhea that is mucus filled, sometimes light brown or yellow, may have bloody streaks but cannot be sure and diarrhea has awakened her from sleep at least 3 times. Has not been able to keep down fluids for past 2 days. Was seen at OSH for same, had labs and CT scan, 'gas', last pm Called PCP office, has appt for tomorrow, was advised to go to the ER for recheck of her symptoms. Has taken nothing for pain History of diverticulosis on colonoscopy years ago, no 'itis'. Denies any urinary symptoms. Has hadseveral hernias repaired, 'lots of mesh in there.' Bilateral mascetomies for breast CA, is 4 years out from cancer. dropped her off, has a ride. Medical History ALLERGIES: Allergies Allergen Reactions ??? [...] and fever. HENT: Negative for sore throat. Respiratory: Negative for cough and shortness of breath. Cardiovascular: Negative for chest pain. Gastrointestinal: Positive for abdominal pain, diarrhea, nausea and vomiting. Negative for constipation. Genitourinary: Negative for difficulty urinating. Skin: Negative for rash. Neurological: Negative for light-headedness and headaches. Psychiatric/Behavioral: Negative for decreased concentration. Physical Exam Filed Vitals: 08/30/18 1943 08/30/18 1945 08/30/18 [id number] BP: (!) 145/92 (!) 145/92 129/77 142/78 Pulse: 88 92 82 77 Resp: 24 16 22 20 Temp: 98.2 ??F (36.8 ??C) TempSrc: SpO2: 96% 95% 96% 100% Weight: 135.4 kg (298 lb 8.1 oz) Height: 5' 1 (1.549 m) Physical Exam Constitutional: She is oriented to person, place, and time. She appears well- developed and well-nourished. No distress. HENT: Head: Normocephalic. Eyes: Pupils are equal, round, and reactive to light. Neck: Neck supple. Cardiovascular: Normal rate, regular rhythm, normal heart sounds and intact distal pulses. No murmur heard. Pulmonary/Chest: Effort normal and breath sounds normal. Abdominal: Soft. Bowel sounds are normal. She exhibits distension. There is tenderness. There is guarding. abd softly distended, diffusely tender periumbilical. Bowel sounds are present. Musculoskeletal: Normal range of motion. She exhibits no edema or tenderness. Neurological: She is alert and oriented to person, place, and time. Skin: Skin is warm and dry. No pallor. Psychiatric: She has a normal mood and affect. Judgment normal. Nursing note and vitals reviewed. Diagnostic Studies / Procedures ELECTROCARDIOGRAMS: No results found for this visit on 08/30/18. LABORATORY STUDIES: Results for orders placed or performed during the hospital encounter of 08/30/18 CBC W/DIFF AUTOMATED Result Value Ref Range WBC 12.7 (H) 4.5 - 11.0 x10'3/uL RBC 4.75 4.20 - 5.40 x10'6/uL HGB 13.3 12.0 - 16.0 G/DL HCT 42.4 38.0 - 48.0 % MCV 89.3 81.0 - 99.0 FL MCH 28.0 27.0 - 31.0 PG MCHC 31.4 (L) 32.0 - 36.0 G/DL RDW 13.7 11.5 - 14.5 % PLT 349 130 - 400 x10'3/uL MPV 9.2 (L) 9.3 - 12.2 FL DIFFERENTIAL TYPE AUTOMATED DIFFERENTIAL NEUTROPHILS 70.4 % LYMPHOCYTES 19.1 % MONOCYTES 7.6 % EOSINOPHILS 2.2 % BASOPHILS 0.2 % IMMATURE GRANS 0.5 % ABS. NEUTROPHILS TOTAL 8.91 (H) 1.80 - 7.70 x10'3/uL ABS. LYMPHOCYTES 2.42 1.00 - 4.80 x10'3/uL ABS. MONOCYTES 0.96 (H) 0.24 - 0.86 x10'3/uL ABS. EOSINOPHILS 0.28 0.04 - 0.36 x10'3/uL ABS. BASOPHILS 0.03 0.01 - 0.08 x10'3/uL ABS. IMMATURE GRANULOCYTES 0.06 0.00 - 0.49 x10'3/uL COMPREHENSIVE METABOLIC PANEL Result Value Ref Range GLUCOSE 135 (H) 70 - 99 MG/DL BUN 16 7 - 18 MG/DL CREATININE 0.76 0.55 - 1.02 MG/DL SODIUM 137 136 - 145 MMOL/L POTASSIUM 4.0 3.5 - 5.1 MMOL/L CHLORIDE 104 100 - 108 MMOL/L CO2 29.6 21 - 32 MMOL/L CALCIUM 10.2 (H) 8.5 - 10.1 MG/DL TOTAL BILIRUBIN 0.6 0.2 - 1.2 MG/DL TOTAL PROTEIN 8.6 (H) 6.4 - 8.2 G/DL ALBUMIN 3.4 3.4 - 5.0 G/DL AST 18 15 - 37 U/L ALT 27 14 - 55 U/L ALK PHOS 102 50 - 136 U/L ANION GAP 7.4 (L) 8 - 20 MMOL/L BUN CREATININE RATIO 20.9 6 - 26 A/G RATIO 0.7 (L) 1.0 - 2.0 RATIO eGFR Non-Afr. Amer. 84 (L) >90 ML/MIN/1.73 M2 eGFR Afr. Amer. >90 >90 ML/MIN/1.73 M2 LIPASE Result Value Ref Range LIPASE 117 73 - 393 UNITS/L URINALYSIS Result Value Ref Range Specimen Type URINE CLEAN CATCH COLOR YELLOW TRANSPARENCY CLEAR Specific Reserve (U) 1.023 1.001 - 1.030 U PH 5.0 5.0 - 9.0 LEUKOCYTE ESTERASE TRACE (A) NEGATIVE NITRITES NEGATIVE NEGATIVE PROTEIN, URINE NEGATIVE <30 MG/DL URINE GLUCOSE NEGATIVE NEGATIVE MG/DL U KETONES NEGATIVE NEGATIVE MG/DL UROBILINOGEN NEGATIVE NEGATIVE MG/DL Urine Bilirubin NEGATIVE NEGATIVE MG/DL BLOOD SMALL (A) NEGATIVE CULTURE & SENSITIVITY INDICATED? SPECIMEN SETUP FOR CULTURE MUCUS RARE /LPF WBC/HPF 7 (H) <6 /HPF RBC/HPF 4 <6 /HPF LACTIC ACID Result Value Ref Range LACTIC ACID 0.9 0.4 - 2.0 MMOL/L D-DIMER, QUANTITATIVE Result Value Ref Range D-DIMER 860 (HH) 0 - 230 D DU ng/mL TROPONIN, QUANT Result Value Ref Range TROPONIN I <0.015 <0.045 ng/mL. POCT glucose Result Value Ref Range WHOLE BLOOD GLUCOSE 120 (A) 70 - 100 mg/dL POCT glucose Result Value Ref Range GLUCOSE POC 120 (H) 70 - 99 mg/dL POCT glucose Result Value Ref Range GLUCOSE POC 133 (H) 70 - 99 mg/dL OCCULT BLOOD, FECES Result Value Ref Range OCCULT BLOOD, FECAL NEGATIVE IMAGING STUDIES CT ABD+PEL W IV CON ONLY Final Result by User, [id number] (08/30 2183) EXAMINATION: CT abdomen/pelvis with contrast HISTORY: Nausea, vomiting, and diarrhea. Abdominal pain. Symptoms for 4 days. COMPARISON: CT abdomen/pelvis 03/23/2017. TECHNIQUE: Axial CT images of the abdomen and pelvis after the uneventful intravenous administration of 100 mL of Isovue-370 given through the right antecubital fossa. Sagittal and coronal reformatted image sets. A dose lowering technique was used for this procedure, which may include, but is not limited to, dose reduction technique, automated exposure control, the use of degenerative reconstruction, and ALARA/image gently techniques. FINDINGS: The included lung bases appear clear. The heart is normally sized. The liver is normal in size and contour. No evidence of hepatic mass. The gallbladder is surgically absent. Mild biliary prominence which appears within normal limits given the cholecystectomy. No acute appearing pancreatic abnormalities. The spleen is normal in size and contour. No adrenal masses. The kidneys enhance symmetrically. No hydronephrosis or perinephric stranding. Small benign right renal hypodensity, unchanged since 2017. The abdominal aorta remains normal caliber. No retroperitoneal lymphadenopathy. No ascites or free intraperitoneal air. Findings along the anterior abdominal wall compatible with prior hernia repair. No bowel obstruction. Colonic diverticulosis without evidence of acute diverticulitis. The appendix is normal caliber. No colonic or enteric inflammatory changes identified. No free pelvic fluid. The urinary bladder is unremarkable. No adnexal masses. The uterus appears normally sized. Multiple pelvic phleboliths. Degenerative changes at the pubic symphysis. Bilateral sacroiliitis. No acute appearing osseous abnormalities identified. Mild multilevel degenerative changes in the spine. IMPRESSION: No acute appearing abdominal or pelvic abnormalities identified. CHEST PORTABLE Final Result by User, [email or web address] (08/30 163) Date: 08/30/2018 4:13 PM Exam: XR CHEST PORTABLE Comparison: Chest radiography dated 03/17/2018, 08/20/2017. Technique: Single view chest. History: Lower abdominal pain. Pain started 3 days ago. Vomiting and diarrhea. Findings: The cardiac silhouette is upper limits of normal in size, but accentuated by portable technique. The vascularity is within normal limits. There are no consolidations or pleural effusions. There is no pneumothorax. The osseous structures appear normal. Impression: Borderline cardiomegaly. No acute cardiopulmonary disease process. Course / Medical Decision Making ED Course as of August 31 011 Valeri August 30, 2018 1545 WBC: (!) 12.7 [LM] 1545 LIPASE: 117 [LM] 1545 GLUCOSE: (!) 135 [LM] 1604 LEUKOCYTE ESTERASE: (!) TRACE [LM] 1604 BLOOD: (!) SMALL [LM] 1604 WBC/HPF: (!) 7 [LM] 1604 CULTURE & SENSITIVITY INDICATED?: SPECIMEN SETUP FOR CULTURE [LM] [address] of abdomen with contrast about 9pm, last night. [LM] 1655 4:55 PM States this is the best she has felt in 3 days, after receiving dilaudid. [LM] 1707 LACTIC ACID: 0.9 [LM] 1747 5:47 PM Pain returned after CT scan taken, dilaudid ordered. No reaction to previous dose. Had good relief with previous dose. [LM] [address] results, nad, po challenge [LM] 1951 Dry heaves after attempting PO challenge with water and saltines. [LM] 1958 Did discuss admission with patient , and she agrees with plan. Did discuss with Dr Jarvis and will admit for iv hydration, antiemetics and pain meds. Observation. [LM] ED Course User Index [LM] SCOTT Ochoa Medications amitriptyline (ELAVIL) tablet 25 mg (25 mg Oral Given 08/30/182239) exemestane (AROMASIN) tablet 25 mg (not administered) hydrocodone-acetaminophen (NORCO) 7.5-325 MG tablet 1 tablet (not administered) insulin glargine (LANTUS) injection 50 Units (not administered) insulin lispro (HUMALOG) injection 20 Units (not administered) insulin lispro (HUMALOG) injection 0-16 Units (not administered) And insulin lispro (HUMALOG) injection 0-8 Units (0 Units Subcutaneous Not Given 08/30/182244) lisinopril (PRINIVIL,ZESTRIL) tablet 20 mg (not administered) oxybutynin (DITROPAN) tablet 5 mg (5 mg Oral Given 08/30/182239) ropinirole (REQUIP) tablet 5 mg (5 mg Oral Given 08/30/182239) rivaroxaban (XARELTO) tablet 20 mg (20 mg Oral Given 08/30/182239) acetaminophen (TYLENOL) tablet 650 mg (not administered) ketorolac (TORADOL) injection 30 mg (30 mg Intravenous Given 08/30/182235) hydrocodone-acetaminophen (NORCO) 7.5-325 MG tablet 2 tablet (not administered) insulin lispro (HUMALOG) injection 22 Units (not administered) ondansetron (ZOFRAN-ODT) disintegrating tablet 4 mg (not administered) pantoprazole EC (PROTONIX) tablet 40 mg (not administered) lactated ringers infusion ( Intravenous New Bag 08/31/18 0056) dicyclomine (BENTYL) tablet 20 mg (20 mg Oral Given 08/30/18 1454) ondansetron (ZOFRAN-ODT) disintegrating tablet 4 mg (4 mg Oral Given 08/30/18 1454) sodium chloride 0.9% bolus infusion SOLN 1,000 mL (0 mLs Intravenous Infusion Stop Time 08/30/18 1740) ondansetron (ZOFRAN) injection 4 mg (4 mg Intravenous Given 08/30/18 1620) HYDROmorphone (DILAUDID) injection 1 mg (1 mg Intravenous Given 08/30/18 1623) iopamidol (ISOVUE-370) 76 % injection 100 mL (100 mLs Intravenous Given 08/30/18 1734) HYDROmorphone (DILAUDID) injection 1 mg (1 mg Intravenous Given 08/30/18 1749) ondansetron (ZOFRAN) injection 4 mg (4 mg Intravenous Given 08/30/182033) Clinical Impression Periumbilical abdominal pain (Primary) Nausea vomiting and diarrhea Current Discharge Medication List Disposition: Admit Follow-Up: No follow-up provider specified. SCOTT OCHOA 08/31/2018 SCOTT Ochoa 08/31/18 0111 Cosigned by Colten Reilly MD at 08/31/2018 6:58 AM CDT * HUMAIRA Holder - 08/30/2018 2:14 PM CDT [place] EMERGENCY DEPARTMENT ENCOUNTER Medical Screening Examination 08/30/18 2:15 PM Chief Complaint : Abdominal Pain HPI : Mohsen Marques is a 63-year-old female who presents *lower abdominal pain 3 days ago, mucoid diarrhea seen at another ER last night, was told she has gas, hx c sectoin and hernia repair Vital Signs: Filed Vitals: 08/30/18 1414 BP: (!) 166/99 Resp: 18 Temp: 98.6 ??F (37 ??C) TempSrc: Oral SpO2: 99% Weight: 132.8 kg (292 lb 12.8 oz) Height: 5' 1 (1.549 m) Physical exam: A brief physical exam was completed to facilitate/expedite patient care. Mitchell findings include: rocking in triage chair* Plan: Labs were ordered to facilitate patient care. HUMAIRA Holder 08/30/18 1415 Cosigned by Colten Reilly MD at 08/30/2018 7:13 PM CDT * Delio Bender RN - 08/30/2018 2:11 PM CDT Patient from home for c/o lower abd pain, onset 3 days ago. Reports V/D. Was seen at [facility] yesterday for same c/o, had labs and CT done, no abn findings, dx with gas . Patient denies improvement in s/s. documented in this encounter Plan of Treatment Not on file documented as of this encounter Procedures Procedure Name Priority Date/Time Associated Diagnosis Comments POCT GLUCOSE - SAVAGE DOCKED DEVICE Routine 08/31/2018 12:26 PM CDT CLOSTRIDIUM DIFFICILE Routine 08/31/2018 9:06 AM CDT CULTURE STOOL Routine 08/31/2018 9:06 AM CDT CRYPTOSPOR/GIARDIA AG, EIA Routine 08/31/2018 9:06 AM CDT POCT GLUCOSE - SAVAGE DOCKED DEVICE Routine 08/31/2018 6:43 AM CDT BASIC METABOLIC PANEL Routine 08/31/2018 5:00 AM CDT CBC W/DIFF AUTOMATED Routine 08/31/2018 5:00 AM CDT ECG 12-LEAD STAT 08/31/2018 12:25 AM CDT TROPONIN, QUANT STAT 08/31/2018 12:17 AM CDT POCT GLUCOSE - SAVAGE DOCKED DEVICE Routine 08/30/2018 10:45 PM CDT CULTURE, BACTERIA, BLOOD STAT 08/30/2018 10:16 PM CDT CULTURE, BACTERIA, BLOOD STAT 08/30/2018 10:16 PM CDT OCCULT BLOOD, FECES STAT 08/30/2018 9 :35 PM CDT POCT GLUCOSE - SAVAGE DOCKED DEVICE Routine 08/30/2018 8:33 PM CDT POCT GLUCOSE - SAVAGE DOCKED DEVICE STAT 08/30/2018 8:[address] ABD+PEL W CON STAT 08/30/2018 5:34 PM CDT XR CHEST PORTABLE STAT 08/30/2018 4:3 3 PM CDT LACTIC ACID TIMED 08/30/2018 4:24 PM CDT URINALYSIS STAT 08/30/2018 3:02 PM CDT URINE BACTERIA CULTURE Routine 9 3:02 PM CDT COMPREHENSIVE METABOLIC PANEL STAT 08/30/2018 2:48 PM CDT D-DIMER, QUANTITATIVE Routine 08/30/2018 2:48 PM CDT CBC W/DIFF AUTOMATED STAT 08/30/2018 2:48 PM CDT LIPASE STAT 08/30/2018 2:48 PM CDT documented in this encounter Results * POCT glucose (08/31/2018 12:26 PM CDT) GLUCOSE POC 78 70 - 99 mg/dL 08/31/2018 12:29 PM CDT [facility] ORDERS INTERFACE 08/31/2018 12:2 6 PM CDT us Eduardo Abel DO POCT ORDERABLES - DEVICE Fin al Result [facility] ORDERS INTERFACE US * (ABNORMAL) CLOSTRIDIUM DIFFICILE (08/31/2018 9:06 AM CDT) MOLECULAR ASSAY UNACCEPTABLE SPECIMEN RECEIVED FOR TESTING. ??ONLY LIQUID STOOLS ARE ACCEPTABLE UNLESS ILEUS IS PRESENT. (A) NEGATIVE 08/31/2018 2:32 PM CDT [facility] Comment: Successful Call: [id number] called 08/31/2018 02:34 PM to ROOM [id number] ([facility]/[place]) by [id number]. Read Back: Yes STOOL SPECIMEN / Unknown 08/31/2018 9:06 AM CDT Nate Dawson MD BODY FLUIDS AND STOOLS ORDERAB LES Final Result Performing Organization Address City/[facility]/ZIP Co de Phone Number [facility] [address] [place] [address], [place] [phone] * CRYPTO/GIARDIA AG, EIA STOOL (08/31/2018 9:06 AM CDT) Pathologist [facility] GIARDIA ANTIGEN (STOOL) NEGATIVE NEGATIVE 08/31/2018 2:43 PM CDT [facility] CRYPTOSPOR AG (STOOL) NEGATIVE NEGATIVE 08/31/2018 2:43 PM CDT [facility] STOOL SPECIMEN / Unknown 08/31/2018 9:06 AM CDT Nate Dawson MD BODY FLUIDS AND STOOLS ORDERAB LES Final Result [facility] [address] [place] [address], [place] [phone] * CULTURE STOOL (08/31/2018 9:06 AM CDT) SPEC DESCRIPTION STOOL 08/31/2018 9:07 AM CDT [facility] SPECIAL REQUESTS NO SPECIAL REQUEST 08/31/2018 9:07 AM CDT [facility] CULTURE RESULT NEGATIVE FOR SHIGA TOXIN 1 AND 2 09/03/2018 8:39 AM CDT [facility] CULTURE RESULT NO ENTERIC PATHOGENS ISOLATED 09/03/2018 8:39 AM CDT [facility] CULTURE RESULT NOTE: STOOL CULTURES ARE ROUTINELY SCREENED FOR SALMONELLA,SH IGELLA,YERSIN IA,AEROMONAS, PLESIOMONAS,C AMPYLOBA CTER,E.COLI 0157,OVERGROW THS OF S.AUREUS,YEAS T AND P. AERUGINOSA 09/03/2018 8:39 AM CDT [facility] Stool specimen (specimen) STOOL SPECIMEN / Unknown 08/31/2018 9:06 AM CDT 08/31/2018 9:24 AM CDT Nate Dawson MD MICROBIOLOGY - GENERAL ORDERAB LES Final Result [facility] [address] [place] [address], * (ABNORMAL) POCT glucose (08/31/2018 6:43 AM CDT) GLUCOSE POC 143(H) 70 - 99 mg/dL 08/31/2018 7:04 AM CDT [facility] ORDERS INTERFACE 08/31/2018 6:43 AM CDT us Eduardo Abel DO POCT ORDERABLES - DEVICE Fin al Result [facility] ORDERS INTERFACE US * (ABNORMAL) BASIC METABOLIC PANEL (08/31/2018 5:00 AM CDT) GLUCOSE 121(H) 70 - 99 MG/DL 08/31/2018 6:05 AM CDT [facility] BUN 16 7 - 18 MG/DL 08/31/2018 6:05 AM CDT [facility] CREATININE S/P/B 0.83 0.55 - 1.02 MG/DL 08/31/2018 6:05 AM T [facility] SODIUM S/P/B 139 136 - 145 MMOL/L 08/31/2018 6:05 AM T [facility] POTASSIUM S/P/B 4.3 3.5 - 5.1 MMOL/L 08/31/2018 6:05 AM T [facility] CHLORIDE S/P/B 104 100 - 108 MMOL/L 08/31/2018 6:05 AM T [facility] CO2 30.0 21 - 32 MMOL/L 08/31/2018 6:05 AM [facility] CALCIUM S/P/B 9.0 8.5 - 10.1 MG/DL 08/31/2018 6:05 AM T [facility] ANION GAP 9.3 8 - 20 MMOL/L 08/31/2018 6:05 AM [facility] BUN CREATININE RATIO 19.2 6 - 26 08/31/2018 6:05 AM [facility] EGFR NON-AFR. AMER. 76(L) >90 ML/MIN/1.7 3 M2 08/31/2018 6:05 AM [facility] EGFR AFR. AMER. 88(L) >90 ML/MIN/1.7 3 M2 08/31/2018 6:05 AM [facility] Comment: NOTE: eGFR is not calculated for patients <18 years of age. This is an estimated GFR (CKD EPI) and should not be used for calculating drug doses. 08/31/2018 5:00 AM CDT us Nate Dawson MD LABORATORY Final Result [facility] [address] [place] [address], [place] [phone] * (ABNORMAL) CBC W/DIFF AUTOMATED (08/31/2018 5:00 AM CDT) [facility] WBC 9.7 4.5 - 11.0 x10'3/uL 08/31/2018 5:50 AM CDT [facility] RBC 4.06(L) 4.20 - 5.40 x10'6/uL 08/31/2018 5:50 AM CDT [facility] HGB 11.3(L) 12.0 - 16.0 G/DL 08/31/2018 5:50 AM CDT [facility] HCT 36.8(L) 38.0 - 48.0 % 08/31/2018 5:50 AM CDT [facility] MCV 90.6 81.0 - 99.0 FL 08/31/2018 5:50 AM CDT [facility] MCH 27.8 27.0 - 31.0 PG 08/31/2018 5:50 AM CDT [facility] MCHC 30.7(L) 32.0 - 36.0 G/DL 08/31/2018 5:50 AM CDT [facility] RDW 13.9 11.5 - 14.5 % 08/31/2018 5:50 AM CDT [facility] PLT 283 130 - 400 x10'3/uL 08/31/2018 5:50 AM CDT [facility] MPV 9.5 9.3 - 12.2 FL 08/31/2018 5:50 AM CDT [facility] DIFFERENTIAL TYPE AUTOMATED DIFFERENTIAL 08/31/2018 5:50 AM CDT [facility] NEUTROPHILS % 63.3 % 08/31/2018 5:50 AM CDT [facility] LYMPHOCYTES % 24.0 % 08/31/2018 5:50 AM CDT [facility] MONOCYTES % 8.3 % 08/31/2018 5:50 AM CDT [facility] EOSINOPHILS 3.5 % 08/31/2018 5:50 AM CDT [facility] BASOPHILS 0.4 % 08/31/2018 5:50 AM CDT [facility] IMMATURE GRANS % 0.5 % 09/01/19 19 5:50 AM CDT [facility] ABS. NEUTROPHILS TOTAL 6.15 1.80 - 7.70 x10'3/uL 08/31/2018 5:50 AM CDT [facility] ABS. LYMPHOCYTES 2.34 1.00 - 4.80 x10'3/uL 08/31/2018 5:50 AM CDT [facility] ABS. MONOCYTES 0.81 0.24 - 0.86 x10'3/uL 08/31/2018 5:50 AM CDT [facility] ABS. EOSINOPHILS 0.34 0.04 - 0.36 x10'3/uL 08/31/2018 5:50 AM CDT [facility] ABS. BASOPHILS 0.04 0.01 - 0.08 x10'3/uL 08/31/2018 5:50 AM CDT [facility] ABS. IMMATURE GRANULOCYTES 0.05 0.00 - 0.49 x10'3/uL 08/31/2018 5:50 AM CDT [facility] 08/31/2018 5:00 AM CDT us Nate Dawson MD LABORATORY Final Result [facility] [address] [place] [address], * ECG 12 lead (08/31/2018 12:25 AM CDT) 08/31/2018 12:2 5 AM CDT Narrative [facility] - 08/31/2018 7:58 AM CDT ?[facility] ? [address] [place] ? Test Date: ?2018-08-31 Pat Name: ? MOHSEN MARQUES ?Department: ? Room: ? E95802 Gender: ? Female ? 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 SL : ?[id number] ? Requested By: EDUARDO WALKER Order Number: [id number] ? Reading MD: ?? Noe Cowan ? Measurements Intervals ?[place] ? Rate: ? 71 ? P: ?42 AR: ? 126 ?QRS: ?4 QRSD: ? 84 ? T: ?45 QT: ? 392 ? QTc: ?426 ? Interpretive Statements SINUS RHYTHM Compared to ECG 03/17/2018 22:02:31 T-wave abnormality no longer present Procedure Note Noe Cowan MD - 08/31/2018 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 08/31/2018 12:52 AM CDT [facility] Comment: HIGH DOSES OF BIOTIN MAY INTERFERE WITH THIS TEST RESULT. CORRELATION TO CLINICAL HISTORY AND PRESENTATION RECOMMENDED. 08/31/2018 12:1 7 AM CDT Nate Dawson MD LABORATORY Final Result Performing Organization Address [facility] Co de Phone Number [facility] [address] [id number], [place] [phone] * (ABNORMAL) POCT glucose (08/30/2018 10:45 PM CDT) GLUCOSE POC 133(H) 70 - 99 mg/dL 08/30/2018 11:13 PM CDT [facility] ORDERS INTERFACE 08/30/2018 10:4 5 PM CDT Eduardo Abel DO POCT ORDERABLES - DEVICE Fin al Result Performing Organization Address [facility] Co de Phone Number [facility] ORDERS INTERFACE US * CULTURE, BACTERIA, BLOOD (08/30/2018 10:16 PM CDT) SPEC DESCRIPTION BLOOD 08/30/2018 9:02 PM CDT [facility] SPECIAL REQUESTS NO SPECIAL REQUEST 08/30/2018 9:02 PM CDT [facility] CULTURE RESULT NO GROWTH 6 DAYS 09/05/2018 8:29 AM CDT [facility] BLOOD SPECIMEN OBTAINED FOR BLOOD CULTURE / Unknown 08/30/2018 10:16 PM CDT 08/30/2018 10:18 PM CDT Nate Dawson MD MICROBIOLOGY - GENERAL ORDERAB LES Final Result Performing Organization Address City/[facility]/ZIP Co de Phone Number [facility] [address] [place] [address], * CULTURE, BACTERIA, BLOOD (08/30/2018 10:16 PM CDT) [facility] SPEC DESCRIPTION BLOOD 08/30/2018 9:02 PM CDT [facility] SPECIAL REQUESTS NO SPECIAL REQUEST 08/30/2018 9:02 PM CDT [facility] CULTURE RESULT NO GROWTH 6 DAYS 09/05/2018 8:29 AM CDT [facility] BLOOD SPECIMEN OBTAINED FOR BLOOD CULTURE / Unknown 08/30/2018 10:16 PM CDT 08/30/2018 10:18 PM CDT Nate Dawson MD MICROBIOLOGY - GENERAL ORDERAB LES Final Result [facility] [address] [place] [address], * OCCULT BLOOD, FECES (08/30/2018 9:35 PM CDT) [facility] OCCULT BLOOD FECAL NEGATIVE 08/30/2018 11:06 PM CDT [facility] STOOL SPECIMEN / Unknown 08/30/2018 9:35 PM CDT Leah Mackay NP BODY FLUIDS AND STOOLS ORDERA BLES Final Result [address] [address], [place] [phone] * (ABNORMAL) POCT glucose (08/30/2018 8:33 PM CDT) [facility] GLUCOSE POC 120(H) 70 - 99 mg/dL 08/30/2018 8:38 PM CDT [facility] ORDERS INTERFACE 08/30/2018 8:33 PM CDT Leah Mackay [employer] POCT ORDERABLES - DEVICE Deann l Result [facility] ORDERS INTERFACE US * (ABNORMAL) POCT glucose (08/30/2018 8:33 PM CDT) GLUCOSE WHOLE BLOOD 120(A) 70 - 100 mg/dL [facility] Leah Mackay [employer] POCT ORDERABLES - DEVICE Deann l Result Performing Organization Address City/[facility]/ZIP Co de Phone Number [facility] [address] [place] [address], [place] [phone] * CT ABD+PEL W IV CON ONLY (08/30/2018 5:34 PM CDT) Anatomical Region Laterality Modality Abdomen Computed Tomogra phy 08/30/2018 5:46 PM CDT Impressions 08/30/2018 5:52 PM CDT IMPRESSION: No acute appearing abdominal or pelvic abnormalities identified. Narrative 08/30/2018 5:52 PM CDT EXAMINATION: CT abdomen/pelvis with contrast HISTORY: Nausea, vomiting, and diarrhea. Abdominal pain. Symptoms for 4 days. COMPARISON: CT abdomen/pelvis 03/23/2017. TECHNIQUE: Axial CT images of the abdomen and pelvis after the uneventful intravenous administration of 100 mL of Isovue-370 given through the right antecubital fossa. Sagittal and coronal reformatted image sets. A dose lowering technique was used for this procedure, which may include, but is not limited to, dose reduction technique, automated exposure control, the use of degenerative reconstruction, and ALARA/image gently techniques. FINDINGS: The included lung bases appear clear. The heart is normally sized. The liver is normal in size and contour. No evidence of hepatic mass. The gallbladder is surgically absent. Mild biliary prominence which appears within normal limits given the cholecystectomy. No acute appearing pancreatic abnormalities. The spleen is normal in size and contour. No adrenal masses. The kidneys enhance symmetrically. No hydronephrosis or perinephric stranding. Small benign right renal hypodensity, unchanged since 2017. The abdominal aorta remains normal caliber. No retroperitoneal lymphadenopathy. No ascites or free intraperitoneal air. Findings along the anterior abdominal wall compatible with prior hernia repair. No bowel obstruction. Colonic diverticulosis without evidence of acute diverticulitis. The appendix is normal caliber. No colonic or enteric inflammatory changes identified. No free pelvic fluid. The urinary bladder is unremarkable. No adnexal masses. The uterus appears normally sized. Multiple pelvic phleboliths. Degenerative changes at the pubic symphysis. Bilateral sacroiliitis. No acute appearing osseous abnormalities identified. Mild multilevel degenerative changes in the spine. Procedure Note Leo Trivedi DO - 08/30/2018 EXAMINATION: CT abdomen/pelvis with contrast HISTORY: Nausea, vomiting, and diarrhea. Abdominal pain. Symptoms for 4 days. COMPARISON: CT abdomen/pelvis 03/23/2017. TECHNIQUE: Axial CT images of the abdomen and pelvis after the uneventfulintravenous administration of 100 mL of Isovue-370 given through the rightantecubital fossa. Sagittal and coronal reformatted image sets. A dose lowering technique was used for this procedure, which mayinclude, but is not limited to, dose reduction technique, automated exposure control, the use of degenerative reconstruction, and ALARA/image gently techniques. FINDINGS: The included lung bases appear clear. The heart is normally sized. The liver is normal in size and contour. No evidence of hepatic mass.The gallbladder is surgically absent. Mild biliary prominence which appears within normal limits given the cholecystectomy. No acute appearing pancreatic abnormalities. The spleen is normal in size and contour. No adrenal masses. The kidneys enhance symmetrically. No hydronephrosis or perinephric stranding. Small benign right renal hypodensity, unchanged since 2017. The abdominal aorta remains normal caliber. Noretroperitoneal lymphadenopathy. No ascites or free intraperitoneal air. Findings along the anterior abdominal wall compatible with prior hernia repair. No bowelobstruction. Colonic diverticulosis without evidence of acute diverticulitis. The appendix is normal caliber. No colonic or enteric inflammatory changes identified. No free pelvic fluid. The urinary bladder is unremarkable.No adnexal masses. The uterus appears normally sized. Multiple pelvic phleboliths. Degenerative changes at the pubic symphysis. Bilateral sacroiliitis. No acute appearing osseous abnormalities identified. Mild multilevel degenerative changes in the spine. IMPRESSION: No acute appearing abdominal or pelvic abnormalities identified. us Leah Mackay NP CT Final Result * XR CHEST PORTABLE (08/30/2018 4:33 PM CDT) Anatomical Region Laterality Modality Chest Fluoroscopy 08/30/2018 4:36 PM CDT Impressions 08/30/2018 4:38 PM CDT Impression: Borderline cardiomegaly. No acute cardiopulmonary disease process. Narrative 08/30/2018 4:38 PM CDT Date: 08/30/2018 4:13 PM Exam: XR CHEST PORTABLE Comparison: Chest radiography dated 03/17/2018, 08/20/2017. Technique: Single view chest. History: Lower abdominal pain. Pain started 3 days ago. Vomiting and diarrhea. Findings: The cardiac silhouette is upper limits of normal in size, but accentuated by portable technique. The vascularity is within normal limits. There are no consolidations or pleural effusions. There is no pneumothorax. The osseous structures appear normal. Procedure Note Jeremías Watson MD - 08/30/2018 Date: 08/30/2018 4:13 PM Exam: XR CHEST PORTABLE Comparison: Chest radiography dated 03/17/2018, 08/20/2017. Technique: Single view chest. History: Lower abdominal pain. Pain started 3 days ago. Vomiting and diarrhea. Findings: The cardiac silhouette is upper limits of normal in size, but accentuated by portable technique. The vascularity is within normallimits. There are no consolidations or pleural effusions. There is nopneumothorax. The osseous structures appear normal. Impression: Borderline cardiomegaly. No acute cardiopulmonary disease process. us Leah K Codie [employer] GENERAL IMAGING Final Result * LACTIC ACID (08/30/2018 4:24 PM CDT) LACTIC ACID VENOUS 0.9 0.4 - 2.0 MMOL/L 08/30/2018 5:03 PM CDT [facility] 08/30/2018 4:24 PM CDT Leah Mackay [employer] LABORATORY Final Result [facility] [address] [place] [address], [place] [phone] * CULTURE URINE (08/30/2018 3:02 PM CDT) SPEC DESCRIPTION URINE CLEAN CATCH 08/30/2018 6:05 PM CDT [facility] SPECIAL REQUESTS NO SPECIAL REQUEST 08/30/2018 6:05 PM CDT [facility] CULTURE RESULT POLYMICROBIAL GROWTH CONSISTENT WITH NORMAL GENITAL YESENIA. ?? SUSCEPTIBILITIES NOT ROUTINELY PERFORMED. 08/31/2018 2:29 PM CDT [facility] URINE SPECIMEN OBTAINED BY CLEAN CATCH PROCEDURE / Unknown 08/30/2018 3:02 PM CDT 08/30/2018 6:05 PM CDT Joann OLGUINP MICROBIOLOGY - GENERAL ORDE RABLES Final Result [facility] [address] [place] [address], [place] [phone] * (ABNORMAL) URINALYSIS (08/30/2018 3:02 PM CDT) SPECIMEN TYPE URINE CLEAN CATCH 08/30/2018 3:02 PM CDT [facility] COLOR (U) YELLOW 08/30/2018 3:47 PM CDT [facility] TRANSPARENCY CLEAR 08/30/2018 3:47 PM [facility] SPECIFIC GRAVITY (U) 1.023 1.001 - 1.030 08/30/2018 3:47 PM T [facility] U PH 5.0 5.0 - 9.0 08/30/2018 3:47 PM T [facility] LEUKOCYTES (U) TRACE(A) NEGATIVE 08/30/2018 3:47 PM T [facility] NITRITES NEGATIVE NEGATIVE 08/30/2018 3:47 PM T [facility] PROTEIN (U) NEGATIVE <30 MG/DL 08/30/2018 3:47 PM [facility] URINE GLUCOSE NEGATIVE NEGATIVE MG/DL 08/30/2018 3:47 PM T [facility] KETONES MG/DL (U) NEGATIVE NEGATIVE MG/DL 08/30/2018 3:47 PM T [facility] UROBILINOGEN NEGATIVE NEGATIVE MG/DL 08/30/2018 3:47 PM [facility] BILIRUBIN (U) NEGATIVE NEGATIVE MG/DL 08/30/2018 3:47 PM T [facility] BLOOD (U) SMALL(A) NEGATIVE 08/30/2018 3:47 PM [facility] CULTURE & SENSITIVITY INDICATED? SPECIMEN SETUP FOR CULTURE 08/30/2018 3:47 PM T [facility] MUCUS RARE /LPF 08/30/2018 3:47 PM [facility] WBC/HPF 7(H) <6 /HPF 08/30/2018 3:47 PM [facility] RBC/HPF 4 <6 /HPF 08/30/2018 3:47 PM [facility] URINE SPECIMEN OBTAINED BY CLEAN CATCH PROCEDURE / Unknown 08/30/2018 3:02 PM CDT Joannluz elena Casillas SE[employer]ACK INSPECTOR URINE ORDERABLES Final Resu lt Performing Organization Address [facility] Co de Phone Number [facility] [address] [place] [address], * (ABNORMAL) D-DIMER, QUANTITATIVE (08/30/2018 2:48 PM CDT) D-DIMER 860(HH) 0 - 230 D DU ng/mL 08/30/2018 11:15 PM CDT [facility] Comment: TESTING PERFORMED ON [employer] TOP 300 ANALYZER. NOTE: RESULTS OF [...] SEVERE SKIN INFECTIONS, LIVER CIRRHOSIS OR . Successful Call: [facility] called 08/30/2018 11:16 PM to [facility] (1/HANS CARLOS) by [id number]. Read Back: Yes 08/30/2018 2:48 PM CDT Nate Dawson MD LABORATORY Final Result Performing Organization Address City/[facility]/ZIP Co de Phone Number [facility] [address] [place] [address], * LIPASE (08/30/2018 2:48 PM CDT) LIPASE 117 73 - 393 UNITS/L 08/30/2018 3:27 PM CDT [facility] 08/30/2018 2:48 PM CDT Joann Casillas [facility]AT[facility] Final Resul t [facility] [address] [place] [address], [place] [phone] * (ABNORMAL) COMPREHENSIVE METABOLIC PANEL (08/30/2018 2:48 PM CDT) [facility] GLUCOSE 135(H) 70 - 99 MG/DL 08/30/2018 3:27 PM CDT [facility] BUN 16 7 - 18 MG/DL 08/30/2018 3:27 PM CDT [facility] CREATININE S/P/B 0.76 0.55 - 1.02 MG/DL 08/30/2018 3:27 PM CDT [facility] SODIUM S/P/B 137 136 - 145 MMOL/L 08/30/2018 3:27 PM CDT [facility] POTASSIUM S/P/B 4.0 3.5 - 5.1 MMOL/L 08/30/2018 3:27 PM CDT [facility] CHLORIDE S/P/B 104 100 - 108 MMOL/L 08/30/2018 3:27 PM CDT [facility] CO2 29.6 21 - 32 MMOL/L 08/30/2018 3:27 PM CDT [facility] CALCIUM S/P/B 10.2(H) 8.5 - 10.1 MG/DL 08/30/2018 3:27 PM CDT [facility] BILIRUBIN TOTAL S/P/B 0.6 0.2 - 1.2 MG/DL 08/30/2018 3:27 PM CDT [facility] TOTAL PROTEIN S/P/B 8.6(H) 6.4 - 8.2 G/DL 08/30/2018 3:27 PM CDT [facility] ALBUMIN S/P/B 3.4 3.4 - 5.0 G/DL 08/30/2018 3:27 PM CDT [facility] AST 18 15 - 37 U/L 08/30/2018 3:27 PM CDT [facility] ALT 27 14 - 55 U/L 08/30/2018 3:27 PM CDT [facility] ALKALINE PHOSPHATASE S/P/B 102 50 - 136 U/L 08/30/2018 3:27 PM CDT [facility] ANION GAP 7.4(L) 8 - 20 MMOL/L 08/30/2018 3:27 PM T [facility] BUN CREATININE RATIO 20.9 6 - 26 08/30/2018 3:27 PM T [facility] A/G RATIO 0.7(L) 1.0 - 2.0 RATIO 08/30/2018 3:27 PM T [facility] EGFR NON-AFR. AMER. 84(L) >90 ML/MIN/1.7 3 M2 08/30/2018 3:27 PM T [facility] EGFR AFR. AMER. >90 >90 ML/MIN/1.7 3 M2 08/30/2018 3:27 PM T [facility] Comment: NOTE: eGFR is not calculated for patients <18 years of age. This is an estimated GFR (CKD EPI) and should not be used for calculating drug doses. 08/30/2018 2:48 PM CDT us Joann Casillas SEAT PACK INSPECTOR LABORATORY Final Resul t [facility] [address] [place] [address], [place] [phone] * (ABNORMAL) CBC W/DIFF AUTOMATED (08/30/2018 2:48 PM CDT) [facility] WBC 12.7(H) 4.5 - 11.0 x10'3/uL 08/30/2018 3:05 PM CDT [facility] RBC 4.75 4.20 - 5.40 x10'6/uL 08/30/2018 3:05 PM CDT [facility] HGB 13.3 12.0 - 16.0 G/DL 08/30/2018 3:05 PM CDT [facility] HCT 42.4 38.0 - 48.0 % 08/30/2018 3:05 PM CDT [facility] MCV 89.3 81.0 - 99.0 FL 08/30/2018 3:05 PM CDT [facility] MCH 28.0 27.0 - 31.0 PG 08/30/2018 3:05 PM CDT [facility] MCHC 31.4(L) 32.0 - 36.0 G/DL 08/30/2018 3:05 PM CDT [facility] RDW 13.7 11.5 - 14.5 % 08/30/2018 3:05 PM CDT [facility] PLT 349 130 - 400 x10'3/uL 08/30/2018 3:05 PM CDT [facility] MPV 9.2(L) 9.3 - 12.2 FL 08/30/2018 3:05 PM CDT [facility] DIFFERENTIAL TYPE AUTOMATED DIFFERENTIAL 08/30/2018 3:05 PM CDT [facility] NEUTROPHILS % 70.4 % 08/30/2018 3:05 PM CDT [facility] LYMPHOCYTES % 19.1 % 08/30/2018 3:05 PM CDT [facility] MONOCYTES % 7.6 % 08/30/2018 3:05 PM CDT [facility] EOSINOPHILS 2.2 % 08/30/2018 3:05 PM CDT [facility] BASOPHILS 0.2 % 08/30/2018 3:05 PM CDT [facility] IMMATURE GRANS % 0.5 % 08/31/19 19 3:05 PM CDT [facility] ABS. NEUTROPHILS TOTAL 8.91(H) 1.80 - 7.70 x10'3/uL 08/30/2018 3:05 PM CDT [facility] ABS. LYMPHOCYTES 2.42 1.00 - 4.80 x10'3/uL 08/30/2018 3:05 PM CDT [facility] ABS. MONOCYTES 0.96(H) 0.24 - 0.86 x10'3/uL 08/30/2018 3:05 PM CDT [facility] ABS. EOSINOPHILS 0.28 0.04 - 0.36 x10'3/uL 08/30/2018 3:05 PM CDT [facility] ABS. BASOPHILS 0.03 0.01 - 0.08 x10'3/uL 08/30/2018 3:05 PM CDT [facility] ABS. IMMATURE GRANULOCYTES 0.06 0.00 - 0.49 x10'3/uL 08/30/2018 3:05 PM CDT [facility] 08/30/2018 2:48 PM CDT us Joann OLGUINP LABORATORY Final Resul t [facility] [address] [place] [address], [place] [phone] documented in this encounter Visit Diagnoses Diagnosis Pain in the abdomen- Primary Abdominal pain, unspecified site Periumbilical abdominal pain Abdominal pain, periumbilic Nausea vomiting and diarrhea Nausea with vomiting PE (pulmonary thromboembolism) ([facility]) Chronic pulmonary embolism Bilateral malignant neoplasm of breast in female ([facility]) Diverticulosis Diverticulosis of colon (without mention of hemorrhage) Hypertension Unspecified essential hypertension Type 2 diabetes mellitus ([facility]) Type II or unspecified type diabetes mellitus without mention of complication, not stated as uncontrolled Low back pain Lumbago documented in this encounter Administered Medications Inactive Administered Medications - up to 3 most recent administrations Medication Order MAR Action Action Date Dose Rate Site amitriptyline (ELAVIL) tablet 25 mg 25 mg, Oral, Nightly at bedtime, First dose on Valeri 08/30/18 at 2215, Until Discontinued Given 08/30/2018 10:40 PM CDT 25 mg dicyclomine (BENTYL) tablet 20 mg 20 mg, Oral, Once, 1 dose, On Valeri 08/30/18 at 1415 Given 08/30/2018 2:54 PM CDT 20 mg hydrocodone-acetaminophe n (NORCO) 7.5-325 MG tablet 1 tablet 1 tablet, Oral, Every 4 hours PRN, Moderate pain (Scale 4 - 7), Starting on Mon08/31/18 at 0616, Until Mon08/31/18 at 1822, Maximum dose of acetaminophen is 4000 mg from all sources in 24 hours. hydrocodone-acetaminophe n (NORCO) 7.5-325 MG tablet 2 tablet 2 tablet, Oral, Every 4 hours PRN, Severe pain (Scale 8 - 10), Starting on Mon08/30/18 at 2158, Until Mon08/31/18 at 1822, Maximum dose of acetaminophen is 4000 mg from all sources in 24 hours. Given 08/31/2018 10:13 AM CDT 2 tablets HYDROmorphone (DILAUDID) injection 1 mg 1 mg, Intravenous, Once, 1 dose, On Valeri 08/30/18 at 1615, Administer slowly over at least 2-3 minutes. Given 08/30/2018 4:23 PM CDT 1 mg HYDROmorphone (DILAUDID) injection 1 mg 1 mg, Intravenous, Once, 1 dose, On Valeri 08/30/18 at 1800, Administer slowly over at least 2-3 minutes. Given 08/30/2018 5:49 PM CDT 1 mg insulin glargine (LANTUS) injection 50 Units 50 Units, Subcutaneous, Every morning, First dose on Mon08/31/18 at 0700, Until Discontinued Given 08/31/2018 6:36 AM CDT 50 Units Left Lower Abdomen insulin lispro (HUMALOG) injection 0-16 Units 0-16 Units, Subcutaneous, 3 times daily before meals, First dose on Mon08/31/18 at 0700, Until Discontinued, Blood Glucose (USUAL Dosing): [Less than 70:? Initiate Hypoglycemia Standing Orders] [71-140: ? 0 units] [141-180:? 4 units] [181-220:? 6 units] [221-260:? 8 units] [261-300:? 10 units] [301-350:? 12 units] [351-400:? 14 units] [Greater than 400:? 16 units and Call Physician] insulin lispro (HUMALOG) injection 0-8 Units 0-8 Units, Subcutaneous, Nightly at bedtime, First dose on Mon08/30/18 at 2215, Until Discontinued, Blood Glucose (USUAL Dosing): [Less than 70:? Initiate Hypoglycemia Standing Orders] [71-180:? 0 units] [181-220:? 3 units] [221-260:? 4 units] [261-300:? 5 units] [301-350:? 6 units] [351-400:? 7 units] [Greater than 400:? 8 units and Call Physician] insulin lispro (HUMALOG) injection 20 Units 20 Units, Subcutaneous, User specified (2 times per day), First dose on Mon08/31/18 at 0700, Until Discontinued, 20 units before breakfast. 20 units before lunch. 22 units before dinner Given 08/31/2018 12:38 PM CDT 20 Units Right Arm Given 08/31/2018 9:48 AM CDT 20 Units Le ft Arm insulin lispro (HUMALOG) injection 22 Units 22 Units, Subcutaneous, Daily with supper, First dose on Mon08/31/18 at 1700, Until Discontinued, 20 units before breakfast. 20 units before lunch. 22 units before dinner iopamidol (ISOVUE-370) 76 % injection 100 mL 100 mL, Intravenous, IMG once as needed, Contrast, 1 dose, Starting on Mon08/30/18 at 1734, Until Mon08/30/18 at 1734 Given 08/30/2018 5:34 PM CDT 100 mLs Rig ht Arm ketorolac (TORADOL) injection 30 mg 30 mg, Intravenous, Every 6 hours PRN, Moderate pain (Scale 4 - 7), Starting on Mon08/30/18 at 2155, Until Mon08/31/18 at 1822, For patients Less than 65 years. HOLD if S.Cr greater than 1.5. Given 08/31/2018 11:14 AM CDT 30 mg Given 08/31/2018 4:31 AM CDT 30 mg Given 08/30/2018 10:36 PM CDT 30 mg lactated ringers bolus infusion 1,000 mL 1,000 mL, Intravenous, Administer over 30 Minutes, Once, 1 dose, On Mon08/31/18 at 0645 New Bag 08/31/2018 6:36 AM CDT 1,000 mLs lactated ringers infusion at 150 mL/hr, Intravenous, Continuous, Starting on Mon08/31/18 at 0045, Until Mon08/31/18 at 1822 New Bag 08/31/2018 6:36 AM CDT 150 mL/hr New Bag 08/31/2018 12:56 AM CDT 150 mL/hr lisinopril (PRINIVIL,ZESTRIL) tablet 20 mg 20 mg, Oral, Daily, First dose on Mon08/31/18 at 0900, Until Discontinued Given 08/31/2018 9:50 AM CDT 20 mg ondansetron (ZOFRAN) injection 4 mg 4 mg, Intravenous, Once, 1 dose, On Mon08/30/18 at 1615, IV push over 2-5 minutes. Given 08/30/2018 4:20 PM CDT 4 mg ondansetron (ZOFRAN) injection 4 mg 4 mg, Intravenous, Once, 1 dose, On Mon08/30/18 at 2000, IV push over 2-5 minutes. Given 08/30/2018 8:34 PM CDT 4 mg ondansetron (ZOFRAN-ODT) disintegrating tablet 4 mg 4 mg, Oral, Once, 1 dose, On Mon08/30/18 at 1430 Given 08/30/2018 2:54 PM CDT 4 mg ondansetron (ZOFRAN-ODT) disintegrating tablet 4 mg 4 mg, Oral, Every 8 hours, First dose (after last modification) on Mon08/31/18 at 0000, Until Discontinued Given 08/31/2018 9:49 AM CDT 4 mg oxybutynin (DITROPAN) tablet 5 mg 5 mg, Oral, 2 times daily, First dose on Mon08/30/18 at 2215, Until Discontinued Given 08/31/2018 9:50 AM CDT 5 mg Given 08/30/2018 10:40 PM CDT 5 mg pantoprazole EC (PROTONIX) tablet 40 mg 40 mg, Oral, Daily, First dose (after last modification) on Mon08/31/18 at 0215, Until Discontinued, Do not break, chew, or crush. Given 08/31/2018 4:30 AM CDT 40 mg rivaroxaban (XARELTO) tablet 20 mg 20 mg, Oral, Daily with supper, First dose on Mon08/30/18 at 2200, Until Discontinued Given 08/30/2018 10:40 PM CDT 20 mg ropinirole (REQUIP) tablet 5 mg 5 mg, Oral, Nightly at bedtime, First dose on Mon08/30/18 at 2215, Until Discontinued Given 08/30/2018 10:40 PM CDT 5 mg sodium chloride 0.9% bolus infusion SOLN 1,000 mL 1,000 mL, Intravenous, Administer over 15 Minutes, Once, 1 dose, On Valeri 08/30/18 at 1615 New Bag 08/30/2018 4:18 PM CDT 1,000 mLs sodium chloride 0.9% infusion at 125 mL/hr, Intravenous, Continuous, Starting on Valeri 08/30/18 at 2000, Until [facility] 08/30/18 at 2155 New Bag 08/30/2018 8:34 PM CDT 125 mL/hr documented in this encounter Active and Recently Administered Medications Times are shown in CDT. Scheduled Medication Order 08/29/2018 08/30/2018 08/31/2018 amitriptyline (ELAVIL) tablet 25 mg 25 mg, Oral, Nightly at bedtime, First dose on Mon08/30/18 at 2215, Until Discontinued 2240 (Given - Provider: Epi Carlos, NURIS) dicyclomine (BENTYL) tablet 20 mg (COMPLETED) 20 mg, Oral, Once, 1 dose, On Mon08/30/18 at 1415 1454 (Given - Provider: Shravan Reed RN) exemestane (AROMASIN) tablet 25 mg 25 mg, Oral, Daily with supper, First dose on Mon08/31/18 at 1700, Until Discontinued, Administration by approved chemotherapy RN only.Give with food 1700 (Canceled Entry - Provider: Automatic Discharge Provider - Comment: Automatically canceled at discontinue of medication order) HYDROmorphone (DILAUDID) injection 1 mg (COMPLETED) 1 mg, Intravenous, Once, 1 dose, On Mon08/30/18 at 1615, Administer slowly over at least 2-3 minutes. 1623 (Given - Provider: Maira Bocanegra RN) HYDROmorphone (DILAUDID) injection 1 mg (COMPLETED) 1 mg, Intravenous, Once, 1 dose, On Mon08/30/18 at 1800, Administer slowly over at least 2-3 minutes. 1749 (Given - Provider: Jo Gillespie RN)1800 (Due) insulin glargine (LANTUS) injection 50 Units 50 Units, Subcutaneous, Every morning, First dose on Mon08/31/18 at 0700, Until Discontinued 0636 (Given - Provid er: Epi Carlos RN) insulin lispro (HUMALOG) injection 0-16 Units(Linked Group 1) 0-16 Units, Subcutaneous, 3 times daily before meals, First dose on Mon08/31/18 at 0700, Until Discontinued, Blood Glucose (USUAL Dosing): [Less than 70:? Initiate Hypoglycemia Standing Orders] [71-140: ? 0 units] [141-180:? 4 units] [181-220:? 6 units] [221-260:? 8 units] [261-300:? 10 units] [301-350:? 12 units] [351-400:? 14 units] [Greater than 400:? 16 units and Call Physician] 0926 (Not Given - Provider: Albert Gaxiola RN - Reason: Patient/family declined - Comment: States, I don't take any sliding scale under a blood sugar of 150.)1238 (Not Given - Provider: Albert Gaxiola RN - Reason: Order parameters not met)1600 (Canceled Entry - Provider: Automatic Discharge Provider - Comment: Automatically canceled at discontinue of medication order) insulin lispro (HUMALOG) injection 0-8 Units(Linked Group 1) 0-8 Units, Subcutaneous, Nightly at bedtime, First dose on Mon08/30/18 at 2215, Until Discontinued, Blood Glucose (USUAL Dosing): [Less than 70:? Initiate Hypoglycemia Standing Orders] [71-180:? 0 units] [181-220:? 3 units] [221-260:? 4 units] [261-300:? 5 units] [301-350:? 6 units] [351-400:? 7 units] [Greater than 400:? 8 units and Call Physician] 2245 (Not Given - Provider: Epi Carlos, NURIS - Reason: Order parameters not met) insulin lispro (HUMALOG) injection 20 Units 20 Units, Subcutaneous, User specified (2 times per day), First dose on Mon08/31/18 at 0700, Until Discontinued, 20 units before breakfast. 20 units before lunch. 22 units before dinner 0948 (Given - Provid er: Albert Gaxiola RN)1238 (Given - Provider: Albert Gaxiola RN) insulin lispro (HUMALOG) injection 22 Units 22 Units, Subcutaneous, Daily with supper, First dose on Mon08/31/18 at 1700, Until Discontinued, 20 units before breakfast. 20 units before lunch. 22 units before dinner 1700 (Canceled Entry - Provider: Automatic Discharge Provider - Comment: Automatically canceled at discontinue of medication order) lactated ringers bolus infusion 1,000 mL (COMPLETED) 1,000 mL, Intravenous, Administer over 30 Minutes, Once, 1 dose, On Mon08/31/18 at 0645 0636 (New Bag - Prov ider: Epi Carlos, RN)0706 (Infusion Stop Time - Provider: Epi Carlos RN) lisinopril (PRINIVIL,ZESTRIL) tablet 20 mg 20 mg, Oral, Daily, First dose on Mon08/31/18 at 0900, Until Discontinued 0950 (Given - Provid er: Albert Gaxiola RN) ondansetron (ZOFRAN) injection 4 mg (COMPLETED) 4 mg, Intravenous, Once, 1 dose, On Valeri 08/30/18 at 1615, IV push over 2-5 minutes. 1620 (Given - Provider: Maira Bocanegra, NUIRS) ondansetron (ZOFRAN) injection 4 mg (COMPLETED) 4 mg, Intravenous, Once, 1 dose, On Mon08/30/18 at 2000, IV push over 2-5 minutes. 203 (Given - Provider: Maira Bocanegra RN) ondansetron (ZOFRAN-ODT) disintegrating tablet 4 mg (COMPLETED) 4 mg, Oral, Once, 1 dose, On Mon08/30/18 at 1430 1454 (Given - Provider: Shravan Reed RN) ondansetron (ZOFRAN-ODT) disintegrating tablet 4 mg 4 mg, Oral, Every 8 hours, First dose (after last modification) on Mon08/31/18 at 0000, Until Discontinued 0134 (Not Given - Provider: Epi Carlos RN - Reason: Patient/family declined)0949 (Given - Provider: Albert Gaxiola RN)1600 (Canceled Entry - Provider: Automatic Discharge Provider - Comment: Automatically canceled at discontinue of medication order) oxybutynin (DITROPAN) tablet 5 mg 5 mg, Oral, 2 times daily, First dose on Mon08/30/18 at 2215, Until Discontinued 2240 (Given - Provider: Epi Carlos RN) 0950 (Given - Provider: Albert Gaxiola RN) pantoprazole EC (PROTONIX) tablet 40 mg 40 mg, Oral, Daily, First dose (after last modification) on Mon08/31/18 at 0215, Until Discontinued, Do not break, chew, or crush. 0430 (Given - Provid er: Epi Carlos RN) rivaroxaban (XARELTO) tablet 20 mg 20 mg, Oral, Daily with supper, First dose on Valeri 08/30/18 at 2200, Until Discontinued 2240 (Given - Provider: Epi Carlos RN) 1700 (Canceled Entry - Provider: Automatic Discharge Provider - Comment: Automatically canceled at discontinue of medication order) ropinirole (REQUIP) tablet 5 mg 5 mg, Oral, Nightly at bedtime, First dose on Valeri 08/30/18 at 2215, Until Discontinued 2240 (Given - Provider: Epi Carlos, NURIS) sodium chloride 0.9% bolus infusion SOLN 1,000 mL (COMPLETED) 1,000 mL, Intravenous, Administer over 15 Minutes, Once, 1 dose, On Valeri 08/30/18 at 1615 1618 (New Bag - Provider: Maira Bocanegra, NURIS)1740 (Infusion Stop Time - Provider: Jo Gillespie RN) Continuous Medication Order 08/29/2018 08/30/2018 08/31/2018 lactated ringers infusion at 150 mL/hr, Intravenous, Continuous, Starting on Mon08/31/18 at 0045, Until Mon08/31/18 at 1822 0056 (New Bag - Provider: Epi Carlos, NURIS)0636 (New Bag - Provider: Epi Carlos, NURIS)1303 (Hold - Provider: Albert Gaxiola RN - Reason: Other - Comment: Per Dr. Pereira hold IV fluids and pushe oral hydration.) sodium chloride 0.9% infusion (CANCELED) at 125 mL/hr, Intravenous, Continuous, Starting on Mon08/30/18 at 2000, Until Mon08/30/18 at 2155 2034 (New Bag - Provider: Maira Bocanegra, NURIS)2302 (Infusion Stop Time - Provider: Epi Carlos, NURIS) PRN Medication Order 08/29/2018 08/30/2018 08/31/2018 acetaminophen (TYLENOL) tablet 650 mg 650 mg, Oral, Every 4 hours PRN, Mild pain (Scale 1 - 3), Starting on Mon08/30/18 at 2155, Until Mon08/31/18 at 1822, Maximum dose of acetaminophen is 4000 mg from all sources in 24 hours. hydrocodone-acetaminophen (NORCO) 7.5-325 MG tablet 1 tablet 1 tablet, Oral, Every 4 hours PRN, Moderate pain (Scale 4 - 7), Starting on Mon08/31/18 at 0616, Until Mon08/31/18 at 1822, Maximum dose of acetaminophen is 4000 mg from all sources in 24 hours. hydrocodone-acetaminophen (NORCO) 7.5-325 MG tablet 2 tablet 2 tablet, Oral, Every 4 hours PRN, Severe pain (Scale 8 - 10), Starting on Mon08/30/18 at 2158, Until Mon08/31/18 at 1822, Maximum dose of acetaminophen is 4000 mg from all sources in 24 hours. 1013 (Given - Provid er: Albert Gaxiola RN) iopamidol (ISOVUE-370) 76 % injection 100 mL (COMPLETED) 100 mL, Intravenous, IMG once as needed, Contrast, 1 dose, Starting on Mon08/30/18 at 1734, Until Valeri 08/30/18 at 1734 1734 (Given - Provider: Joan Garcia, RTR) ketorolac (TORADOL) injection 30 mg(Linked Group 2) 30 mg, Intravenous, Every 6 hours PRN, Moderate pain (Scale 4 - 7), Starting on Mon08/30/18 at 2155, Until Mon08/31/18 at 1822, For patients Less than 65 years. HOLD if S.Cr greater than 1.5. 2236 (Given - Provider: Epi Carlos RN) 0431 (Given - Provider: Epi Carlos RN)1114 (Given - Provider: Albert Gaxiola RN) Linked Groups Order Group 1: insulin lispro (HUMALOG) injection 0-16 UnitsJump to med 0-16 Units, Subcutaneous, 3 times daily before meals, First dose on Mon08/31/18 at 0700, Until Discontinued, Blood Glucose (USUAL [...] Subcutaneous, Nightly at bedtime, First dose on Valeri 08/30/18 at 2215, Until Discontinued, Blood Glucose (USUAL Dosing): [Less than 70:? Initiate Hypoglycemia Standing Orders] [71-180:? 0 units] [181-220:? 3 units] [221-260:? 4 units] [261-300:? 5 units] [301-350:? 6 units] [351-400:? 7 units] [Greater than 400:? 8 units and Call Physician] Group 2: ketorolac (TORADOL) injection 15 mg (CANCELED) 15 mg, Intravenous, Every 6 hours PRN, Moderate pain (Scale 4 - 7), Starting on Valeri 08/30/18 at 2155, Until Valeri 08/30/18 at 2158, For patients greater than or equal to 65 years, less than 50 kg, or renally impaired. For IV administration, give over 15 seconds. Or ketorolac (TORADOL) injection 30 mgJump to med 30 mg, Intravenous, Every 6 hours PRN, Moderate pain (Scale 4 - 7), Starting on Valeri 08/30/18 at 2155, Until Mon08/31/18 at 1822, For patients Less than 65 years. HOLD if S.Cr greater than 1.5. documented in this encounter Additional Health Concerns Infection Onset Date Last Indicated Resolved Time MRSA Comment:mrsa nares pos. 02/201802/03/2017 02/03/2017 09/01/19 19 8:40 AM CDT MRSA Comment:MRSA nares pos. 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 [address] PCP - General FAMILY PRACTICE 08/20/17 Meena Bansal MD [address] [id number] [employer] Operator CARDIOVASCULAR DISEASE 04/24/16 documented as of this encounter
--- OUTSIDE RECORDS SUMMARY | 2024-04-26 02:42 | XMS_ITS | Encounter Summary ---
Author Organization [facility] Address [address] [place] [address]. [place] [address] [place] [address] Care Team Providers Care Physical Education Instructor Name Role Phone Lavonne Ram MD Primary Care Provider [phone] Meena Bansal MD Unavailable [phone] Encounter Details Date Type Department Care Team (Late st Contact Info) Description 12/02/2016 Emergency [facility] Emergency Room [place], [place] [id number] Jimmie Navarro, DO [address] [facility] [address] [place], [place] [id number] Social History Tobacco Use Types Packs/Day Years Used Date Smoking Tobacco: Never Assessed Comments Unknown Sex and Gender Information Value Date Recorded Sex Assigned at Female 09/06/2020 12:50 AM CDT Legal Sex Female 10:47 AM CDT Gender Identity Female 09/06/2020 12:50 AM CDT Sexual Orientation 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 Plan of Treatment Not on file documented as of this encounter Procedures Procedure Name Priority Date/Time Associated Diagnosis Comments URINALYSIS WI REFLEX TO CULTURE STAT 12/02/2016 11:48 PM CDT URINE BACTERIA CULTURE Routine 7 11:47 PM CDT COMPREHENSIVE METABOLIC PANEL STAT 12/02/2016 11:47 PM CDT LACTIC ACID STAT 12/02/2016 11:47 PM CDT D-DIMER, QUANTITATIVE STAT 12/02/2016 11:47 PM CDT CBC W/DIFF AUTOMATED STAT 12/02/2016 11:47 PM CDT AMYLASE STAT 12/02/2016 11:47 PM CDT LIPASE STAT 12/02/2016 11:47 PM CDT documented in this encounter Results * (ABNORMAL) URINALYSIS WI REFLEX TO CULTURE (12/02/2016 11:48 PM CDT) SOURCE (FLUID) URINE CLEAN CATCH 12/02/2016 10:36 PM CDT [facility] COLOR (U) YELLOW 12/03/2016 12:05 AM CDT [facility] TRANSPARENCY CLEAR 12/03/2016 12:05 AM CDT [facility] SPECIFIC GRAVITY (U) 1.019 1.001 - 1.030 12/03/2016 12:05 AM CDT [facility] U PH 5.0 5.0 - 9.0 12/03/2016 12:05 AM T [facility] LEUKOCYTES (U) TRACE(A) NEGATIVE 12/03/2016 12:05 AM CDT [facility] NITRITES NEGATIVE NEGATIVE 12/03/2016 12:05 AM CDT [facility] PROTEIN (U) NEGATIVE <30 MG/DL 12/03/2016 12:05 AM CDT [facility] URINE GLUCOSE NEGATIVE NEGATIVE MG/DL 12/03/2016 12:05 AM CDT [facility] KETONES MG/DL (U) NEGATIVE NEGATIVE MG/DL 12/03/2016 12:05 AM T [facility] UROBILINOGEN NEGATIVE NEGATIVE MG/DL 12/03/2016 12:05 AM CDT [facility] BILIRUBIN (U) NEGATIVE NEGATIVE MG/DL 12/03/2016 12:05 AM CDT [facility] BLOOD (U) SMALL(A) NEGATIVE 12/03/2016 12:05 AM CDT [facility] CULTURE & SENSITIVITY INDICATED? SPECIMEN SETUP FOR CULTURE 12/03/2016 12:05 AM CDT [facility] SQUAMOUS EPITHELIALS FEW /LPF 12/03/2016 12:05 AM CDT [facility] MUCUS RARE /LPF 12/03/2016 12:05 AM CDT [facility] WBC/HPF 9(H) <6 /HPF 12/03/2016 12:05 AM CDT [facility] RBC/HPF 1 <6 /HPF 12/03/2016 12:05 AM T [facility] 12/02/2016 11:4 8 PM CDT 12/02/2016 11:53 PM CDT us Generic Conversion Md DURÁN URINE ORDERABLES Final Result [facility] [address] [place] [address], [place] [phone] * (ABNORMAL) COMPREHENSIVE METABOLIC PANEL (12/02/2016 11:47 PM CDT) GLUCOSE 157(H) 70 - 99 mg/dL 12/03/2016 12:15 AM CDT [facility] BUN 19 8 - 23 mg/dL 12/03/2016 12:15 AM CDT [facility] CREATININE S/P/B 0.70 0.60 - 1.10 mg/dL 12/03/2016 12:15 AM CDT [facility] SODIUM S/P/B 135(L) 136 - 145 mmol/L 12/03/2016 12:15 AM CDT [facility] POTASSIUM S/P/B 4.1 3.5 - 5.1 mmol/L 12/03/2016 12:15 AM T [facility] CHLORIDE S/P/B 98 98 - 107 mmol/L 12/03/2016 12:15 AM CDT [facility] CO2 27 22 - 29 mmol/L 12/03/2016 12:15 AM CDT [facility] BILIRUBIN TOTAL S/P/B 0.3 0.2 - 1.2 mg/dL 12/03/2016 12:15 AM T [facility] CALCIUM S/P/B 9.8 8.6 - 10.2 mg/dL 12/03/2016 12:15 AM T [facility] ALKALINE PHOSPHATASE S/P/B 59 35 - 104 U/L 12/03/2016 12:15 AM CDT [facility] AST 19 0 - 32 U/L 12/03/2016 12:15 AM T [facility] TOTAL PROTEIN S/P/B 7.4 6.4 - 8.3 g/dL 12/03/2016 12:15 AM T [facility] ALBUMIN S/P/B 3.5 3.5 - 5.2 g/dL 12/03/2016 12:15 AM CDT [facility] ALT 22 0 - 33 U/L 12/03/2016 12:15 AM CDT [facility] GLOBULIN 3.9(H) 2.3 - 3.6 g/dL 12/03/2016 12:15 AM T [facility] A/G RATIO 0.9(L) 1.0 - 2.0 12/03/2016 12:15 AM T [facility] ANION GAP 14 8 - 20 12/03/2016 12:15 AM CDT [facility] EGFR NON-AFR. AMER. >60 >60 mL/min/1.7 3m'2 12/03/2016 12:15 AM CDT [facility] EGFR AFR. AMER. >60 >60 mL/min/1.7 3m'2 12/03/2016 12:15 AM CDT [facility] Comment: NOTE: eGFR is not calculated for patients <18 years of age. This is an estimated GFR (CKD EPI) and should not be used for calculating drug doses. 12/02/2016 11:4 7 PM CDT 12/02/2016 11:53 PM CDT us Generic Conversion Md DURÁN LABORATORY Final R esult [facility] [address] [place] [address], * CULTURE URINE (12/02/2016 11:47 PM CDT) SPEC DESCRIPTION URINE CLEAN CATCH 12/03/2016 12:10 AM CDT [facility] SPECIAL REQUESTS NO SPECIAL REQUEST 12/03/2016 12:10 AM CDT [facility] CULTURE RESULT 10,000-49,000 COL/ML PSEUDOMONAS FLUORESCENS NONSTANDARDIZED SUSCEPTIBILITY TEST, RESULTS MUST BE INTERPRETED WITH CAUTION. 12/07/2016 8:42 AM CDT [facility] URINE SPECIMEN OBTAINED BY CLEAN CATCH PROCEDURE / Unknown 12/02/2016 11:47 PM CDT 12/03/2016 12:10 AM CDT Narrative Organism Antibiotic Method Susceptibility Pseudomonas fluorescens PIPRACIL/TAZO TERRANCE (KB) Sensitive Pseudomonas fluorescens CEFTAZIDIME TERRANCE (KB) Sensitive Pseudomonas fluorescens CEFTRIAXONE TERRANCE (KB) Intermediate Pseudomonas fluorescens GENTAMICIN TERRANCE (KB) Resistant Pseudomonas fluorescens TOBRAMYCIN TERRANCE (KB) Resistant Pseudomonas fluorescens AMIKACIN TERRANCE (KB) Sensitive Pseudomonas fluorescens LEVOFLOXACIN TERRANCE (KB) Resistant Pseudomonas fluorescens TRIMETH-SULFAMETH. TERRANCE (KB) Resistant Pseudomonas fluorescens AMPICILLIN/SULBACTAM TERRANCE (KB) Resistant us Generic Conversion Md DURÁN MICROBIOLOGY - GENERAL ORDERABLES Final Result [facility] [address] [place] [address], [place] [phone] * LACTIC ACID (12/02/2016 11:47 PM CDT) LACTIC ACID VENOUS 1.33 0.5 - 2.2 mmol/L 12/03/2016 12:13 AM CDT [facility] Comment: NOTE: Acetaminophen, N Acetyl p benzoquinone imine (NAPQI), N acetylcysteine (NAC), Metamizole, 4 Aminoantipyrine (4 AAP) and 4 Methylamino antipyrine (4 MAP) at high concentrations can cause falsely low results on Lactate, Uric Acid, Cholesterol, Triglyceride, HDL, and Direct LDL. PLASMA SPECIMEN / Unknown 12/02/2016 11:47 PM CDT 12/02/2016 11:53 PM CDT us Generic Conversion Md [facility] Final R esult Performing Organization Address [facility]/ZIP Co de Phone Number [facility] [address] [place] [address], [place] [phone] * LIPASE (12/02/2016 11:47 PM CDT) Pathologist [facility] LIPASE 26 13 - 60 U/L 12/03/2016 12:15 AM CDT [facility] SERUM OR PLASMA SPECIMEN / Unknown 12/02/2016 11:47 PM CDT 12/02/2016 11:53 PM CDT us Generic Conversion Md [facility] Final R esult [facility] [address] [place] [address], * D-DIMER, QUANTITATIVE (12/02/2016 11:47 PM CDT) [facility] D-DIMER <150 0 - 230 D DU ng/mL 12/03/2016 12:14 AM CDT [facility] Comment: TESTING PERFORMED ON NE [employer] TOP 300 ANALYZER. NOTE: RESULTS OF THIS [...] CIRRHOSIS OR . PLASMA SPECIMEN / Unknown 12/02/2016 11:47 PM CDT 12/02/2016 11:53 PM CDT us Generic Conversion Md [facility]N LABORATORY Final R esult [facility] [address] [place] [address], * (ABNORMAL) CBC W/DIFF AUTOMATED (12/02/2016 11:47 PM CDT) [facility] WBC 10.5 4.8 - 10.8 x10'3/uL 12/03/2016 12:00 AM CDT [facility] RBC 4.00(L) 4.20 - 5.40 x10'6/uL 12/03/2016 12:00 AM CDT [facility] HGB 11.4(L) 12.0 - 16.0 G/DL 12/03/2016 12:00 AM CDT [facility] HCT 35.6(L) 38.0 - 48.0 % 12/03/2016 12:00 AM CDT [facility] MCV 89.0 81.0 - 99.0 FL 12/03/2016 12:00 AM CDT [facility] MCH 28.5 27.0 - 31.0 PG 12/03/2016 12:00 AM CDT [facility] MCHC 32.0 32.0 - 36.0 G/DL 12/03/2016 12:00 AM CDT [facility] RDW 14.0 11.5 - 14.5 % 12/03/2016 12:00 AM CDT [facility] PLT 273 130 - 400 x10'3/uL 12/03/2016 12:00 AM CDT [facility] MPV 9.8 9.3 - 12.2 FL 12/03/2016 12:00 AM CDT [facility] IMMATURE GRANS % 0.3 0.0 - 1.0 % 12/03/2016 12:00 AM CDT [facility] NEUTROPHILS % 63.2 43.0 - 65.0 % 12/03/2016 12:00 AM CDT [facility] LYMPHOCYTES % 25.2 20.0 - 46.0 % 12/03/2016 12:00 AM CDT [facility] MONOCYTES % 7.9 5.0 - 12.0 % 12/03/2016 12:00 AM T [facility] EOSINOPHILS 3.1(H) 1.0 - 3.0 % 12/03/2016 12:00 AM CDT [facility] BASOPHILS 0.3 0.0 - 1.0 % 12/03/2016 12:00 AM T [facility] WHOLE BLOOD SPECIMEN / Unknown 12/02/2016 11:47 PM CDT 12/02/2016 11:53 PM CDT us Generic Conversion Md [facility] LABORAT[facility] Final R esult [facility] [address] [place] [address], * AMYLASE (12/02/2016 11:47 PM CDT) AMYLASE S/P/B 45 28 - 100 U/L 12/03/2016 12:15 AM CDT [facility] SERUM OR PLASMA SPECIMEN / Unknown 12/02/2016 11:47 PM CDT 12/02/2016 11:53 PM CDT us Generic Conversion Md DUR[facility]N LABORATORY Final R esult Performing Organization Address [facility]/ZIP Co de Phone Number [facility] [address] [place] [address], documented in this encounter Visit Diagnoses Diagnosis Right upper quadrant pain Abdominal pain, right upper quadrant documented in this encounter Additional Health Concerns Infection Onset Date Last Indicated Resolved Time MRSA Comment:mrsa nares pos. 02/201802/03/2017 02/03/2017 09/01/19 19 8:40 AM CDT documented as of this encounter Care Teams Physical Education Instructor Relationship Specialty Start Date End Date Lavonne Ram MD [address] [address] PCP - General FAMILY PRACTICE 04/24/16 08/19/17 Meena Bansal MD [address] [facility] [place] [address] [place] [employer] Slicing Machine Operator CARDIOVASCULAR DISEASE 04/24/16 documented as of this encounter
--- OUTSIDE RECORDS SUMMARY | 2024-04-26 02:42 | XMS_ITS | Encounter Summary ---
Author Organization [facility] Address [address] [place] [address]. [place] [address] [place] [address] Care Team Providers Care Incident Response Specialist Name Role Phone Lavonne Ram MD Primary Care Provider [phone] Meena Bansal MD Unavailable [phone] Encounter Details Date Type Department Care Team ([facility] Contact Info) Description 02/25/2017 [place] [address] , Generic Conversion, Social History Tobacco Use Types Packs/Day Years Used Date Smoking Tobacco: Never Assessed Comments Unknown Sex and Gender Information Value Date Recorded Sex Assigned at Female 09/06/2020 12:50 AM CDT Legal Sex Female 10:47 AM CDT Gender Identity Female 09/06/2020 12:50 AM CDT 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 02/201802/03/2017 02/03/2017 09/01/19 19 8:40 AM CDT documented as of this encounter Care Teams Incident Response Specialist Relationship Specialty Start Date End Date Lavonne Ram MD [address] [address] PCP - General FAMILY PRACTICE 04/24/16 08/19/17 Meena Bansal MD [facility] [address] [address] [employer] Operations Manager CARDIOVASCULAR DISEASE 04/24/16 documented as of this encounter
--- OUTSIDE RECORDS SUMMARY | 2024-04-26 02:42 | XMS_ITS | Encounter Summary ---
Author Organization [facility] / [facility] Address [address] [place] [address]. [place] [address] [place] [address] Care Team Providers Care Pack Out Operator Name Role Phone Lavonne Ram MD Primary Care Provider [phone] Meena Bansal MD Unavailable [phone] Encounter Details Date Type Department Care Team (Late st Contact Info) Description 11/02/2016 Orders Only [facility] [address] [place] [address] Shanthi Mendez MD [address] [facility] [address] [place] [address] Social History Tobacco Use Types Packs/Day Years Used Date Smoking Tobacco: Never Assessed Comments Unknown Sex and Gender Information Value Date Recorded Sex Assigned at Female 09/06/2020 12:50 AM CDT Legal Sex Female 10:47 AM CDT Gender Identity Female 09/06/2020 12:50 AM CDT Sexual Orientation Straight 03/18/2018 3: 01 AM [employer] documented as of this encounter Plan of Treatment Not on file documented as of this encounter Procedures Procedure Name Priority Date/Time Associated Diagnosis Comments CARDIOLOGY GENERIC 11/02/2016 1: 11 PM CDT documented in this encounter Results * CARDIOLOGY GENERIC (11/02/2016 1:11 PM CDT) 11/02/2016 1:11 PM CDT Narrative [facility] - 11/09/2016 12:00 AM CDT ? MOHSEN SALAZAR MD: SHANTHI MENDEZ MD ?? Acct: [id number] ?? Admit/Service Date: 11/02/16 Discharge Date: 11/02/16 ?? : 1955 Pt Type: DIS IN ?? Sex: F Ord Site: [facility] ? Exam ? 11/02/2016 @ 13:11 ?TECH: LB ?? Date/Time: ? Accession Number ?? [id number] ?CHART DOCUMENT ? INDICATIONS: ??CHEST PAIN, SHORTNESS OF BREATH ? RISK FACTORS: ??DIABETES, HYPERTENSION, EX-SMOKER, HISTORY OF PLUERAL ?? EFFUSION, SINUS TACHYCARDIA ? BASELINE: ??HR 84 BPM, BLOOD PRESSURE 135/77 MMHG, PULSE OX 98% ? TYPE OF STRESS: ??LEXISCAN 0.4MG ? MAXIMUM: ??HR 105 BPM 65% MPHR, PEAK BLOOD PRESSURE 152/88 MMHG, METS: 1.0 ? SYMPTOMS: ??SHORTNESS OF BREATH/DYSPNEA ON EXERTION, HEADACHE, NAUSEA ? BLOOD PRESSURE RESPONSE: ??NORMAL ? TERMINATED DUE TO: ??PROTOCOL END ? RESTING ELECTROCARDIOGRAM: ??SINUS RHYTHM, PREMATURE VENTRICULAR CONTRACTION ? STRESS ELECTROCARDIOGRAM: ??SINUS TACHYCARDIA, NO ISCHEMIC ST CHANGES, T ?? WAVE ABNORMALITIES, PREMATURE VENTRICULAR CONTRACTIONS ? CONCLUSIONS: ?1.CLINICALLY NEGATIVE. ?2.ELECTROCARDIOGRAM NEGATIVE. ?3.NUCLEAR IMAGES PENDING. ? Electronically Signed By: ?? MEENA BANSAL M.D. 11/11/2016 05:01 P ?? MEENA BANSAL M.D. ? D: ??11/02/2016 01:11 P ??#[id number] ?? T: ??11/09/2016 11:16 A/ecc ?? Document # [id number] ?? Report Type:CD ? cc: ?SHAILA STAFFORD JR., MD ?LAVONNE ROWAN M.D. ? Procedure Note Meena Bansal MD - 11/11/2016 MOHSEN SALAZAR MD: SHANTHI MENDEZ MD Acct: [id number] Admit/Service Date: 11/02/16 Discharge Date: 11/02/16 : 1955 Pt Type: DIS IN Sex: F Ord Site: [facility] Exam 11/02/2016 @ 13:11 TECH: LB Date/Time: Accession Number [id number] CHART DOCUMENT INDICATIONS: CHEST PAIN, SHORTNESS OF BREATH RISK FACTORS: DIABETES, HYPERTENSION, EX-SMOKER, HISTORY OF PLUERAL EFFUSION, SINUS TACHYCARDIA BASELINE: HR 84 BPM, BLOOD PRESSURE 135/77 MMHG, PULSE OX 98% TYPE OF STRESS: LEXISCAN 0.4MG MAXIMUM: HR 105 BPM 65% MPHR, PEAK BLOOD PRESSURE 152/88 MMHG, METS: 1.0 SYMPTOMS: SHORTNESS OF BREATH/DYSPNEA ON EXERTION, HEADACHE, NAUSEA BLOOD PRESSURE RESPONSE: NORMAL TERMINATED DUE TO: PROTOCOL END RESTING ELECTROCARDIOGRAM: SINUS RHYTHM, PREMATURE VENTRICULARCONTRACTION STRESS ELECTROCARDIOGRAM: SINUS TACHYCARDIA, NO ISCHEMIC ST CHANGES, T WAVE ABNORMALITIES, PREMATURE VENTRICULAR CONTRACTIONS CONCLUSIONS: 1.CLINICALLY NEGATIVE. 2.ELECTROCARDIOGRAM NEGATIVE. 3.NUCLEAR IMAGES PENDING. Electronically Signed By: MEENA BANSAL M.D. 11/11/2016 05:01 P MEENA BANSAL M.D. P #[id number] A/ecc Document # [id number] Report Type:CD cc: SHAILA STAFFORD JR., MD LAVONNE ROWAN M.D. us Shanthi Mendez MD [facility] Edited Res ult - Final [facility] documented in this encounter Visit Diagnoses Not on filedocumented in this encounter Care Teams Pack Out Operator Relationship Specialty Start Date End Date Lavonne Ram MD [address] [place] [address] PCP - General FAMILY PRACTICE 04/24/16 08/19/17 Meena Bansal MD [address] [address] [place] [employer] CARDIOVASCULAR DISEASE 04/24/16 documented as of this encounter
--- OUTSIDE RECORDS SUMMARY | 2024-04-26 02:42 | XMS_ITS | Encounter Summary ---
Author Organization [facility] Address [address] [place] [address]. [place] [address] [place] [address] Care Team Providers Care Search Director Name Role Phone Meena Bansal MD Unavailable [phone] Gerardo Hoffman MD Primary Care Provider Reason for Referral * (Routine) - Closed Specialty Diagnoses / Procedures Referred By Contac t Referred To Contact Procedures OT eval and treat Sarah Beth Reyes MD Phone: tel: [phone] fax: Referral ID Status Reason Start Date Expiration Date Visits Re quested Visits Authorized [id number] Closed 08/20/2017 09/19/2018 1 1 * Imaging (Emergency) - Closed Specialty Diagnoses / Procedures Referred By Contac t Referred To Contact Procedures CTA CHEST Tylor Brewer MD Phone: tel: fax: Referral ID Status Reason Start Date Expiration Date Visits Re quested Visits Authorized [id number] Closed 08/20/2017 09/19/2018 1 1 * Imaging (Emergency) - Closed Specialty Diagnoses / Procedures Referred By Contac t Referred To Contact Procedures CT HEAD WO CON Tylor Brewer MD Phone: tel: fax: Referral ID Status Reason Start Date Expiration Date Visits Re quested Visits Authorized [id number] Closed 08/20/2017 09/19/2018 1 1 Reason for Visit * Reason Comments Respiratory Symptoms cough, sob, occasio nal low grade fevers x 2 weeks. Feel run down * Auth/Cert Specialty Diagnoses / Procedures Referred By Contac t Referred To Contact Diagnoses Weakness Abnormal CT scan, sinus Acute bronchitis, unspecified organism Nonintractable headache, unspecified chronicity pattern, unspecified headache type Other fatigue Chest pain, unspecified type Bronchitis Referral ID Status Reason Start Date Expiration Date Visits Re quested Visits Authorized [id number] 1 1 Encounter Details Date Type Department Care Team (Late st Contact Info) Description 08/20/2017 1:06 PM CDT - 08/22/2017 3:08 PM CDT Emergency [facility] Med/Surg [address] [place] [address] Tylor Brewer MD [address] [place] [address] [place] [address] [phone] (Work) Sarah Beth Reyes MD [address] [place] [address] [phone] (Work) Lila Mathis, FAMILY SERVICES MANAGER [address] [facility] [address] [place], [place] [id number] Respiratory Symptoms (cough, sob, occasional low grade fevers x 2 weeks. Feel run down ) Discharge Disposition: Home or Self Care (Routine [...] Sexual Orientation Straight 03/18/2018 3: 01 AM ORACLE ERP ARCHITECT documented as of this encounter Last Filed Vital Signs Vital Sign Reading Time Taken Comments Blood Pressure 102/59 08/22/2017 5:00 AM CDT Pulse 84 08/22/2017 5:00 AM CDT Temperature 36.6 ??C (97.8 ??F) 08/21/2017 10:34 AM C DT Respiratory Rate 18 08/22/2017 5:00 AM CDT Oxygen Saturation 96% 08/22/2017 7:55 AM CDT Inhaled Oxygen Concentration - - Weight 130 kg (286 lb 9.6 oz) 08/20/2017 8:41 PM CDT Height 154.9 cm (5' 1 ) 08/20/2017 8:41 PM CDT Body Mass Index 54.15 08/20/2017 8:41 PM CDT documented in this encounter Discharge Summaries * Lila Carlos APRN - 08/22/2017 11:26 AM CDT Hospitalist Discharge Summary Patient ID: Mohsen Marques. female. 1955. Admit date: 08/20/2017 1:06 PM Discharge date and time: 08/22/17 Admitting Physician: Yeis Vora MD Attending Physician: Lila Carlos APRN Primary Care Physician: GERARDO HOFFMAN MD Discharge Physician: Lila Carlos APRN Primary Diagnoses: Sepsis Secondary Diagnosis: Acute Bronchitis Acute Sinusitis Chronic conditions: DM, H/O breast cancer, HTN, LUL, H/O DVT on anticoagulation. Admission Condition: Stable Indication for Admission: Chief Complaint Patient presents with ??? Respiratory Symptoms cough, sob, occasional low grade fevers x 2 weeks. Feel run down Sepsis 2/2 acute bronchitis and sinusitis, failed outpatient therapy Readmission/Mortality Score at discharge: Low 0-28, Medium 29-58, High >59 LACE+ Score Readmission Score: 70 Male Patient: Urgent Admission: 15 Discharge Institution: Length of Stay: 3 Alternative Level of Care Status: 0 ED Visits in Previous 6 Months: 3 Elective Admission in Previous Year: 0 Comorbidity Score (by age & number of urgent admissions): 49 Hospital Course: Per HPI: Mohsen Marques is a 62-year-old female with a PMH of DM, hypothyroidism, HTN, RLS, h/o breast cancer who presents with >10d of SOB and left-sided pranay- orbital/sinus pressure. Also reports chestcongestion, dry cough, nasal congestion. No runny nose, sore throat, post-nasal drip. Also has right-sided chest pain, nausea, post-tussive emesis. No abd pain, dysuria. +Generalized myalgias. +Wheezing. No sick contacts. She failed outpatient therapy with z-pack which was completed in it's entirety. She was admitted 08/20 due to sepsis (tachycardia and leukocytosis POA) 2/2 acute sinusitis and bronchitis.CT scan of head did show evidence of sinusitis. She was started on PO Levofloxacin and PO Prednisone in addition to supportive treatment with Mucinex, Robitussin/Tessalon Pearls, duo-nebs. She showed significant improvement by 08/22 and is requesting discharge home as she does feel much better.Of noted, patient initially complained of shortness of breath and dizziness with ambulation which has resolved. She also reported severe headache which has also resolved. Of noted, leukocytosis noted on AM labs which is likely due to steroid use. Afebrile and clinicallyimproving. Will have patient recheck CBC outpatient. She was instructed to follow up with her PCP. Patient discharged home on PO Prednisone to complete total of 5 day steroid burst (last day 08/25) inaddition to 3 days of Levofloxacin to complete total of 5 day antibiotic course (last day 08/24). I have instructed her to follow up with her PCP in 1 week for continued monitoring. I recommend CBC and BMP to be drawn 08/28 with results to be sent to her PCP, Dr. Hoffman. Patient is stable for discharge home. Vital signs reviewed and stable. ASSESSMENT/PLAN: # Sepsis POA tachycardia, leukocytosis 2/2 suspected acute bronchitis and sinusitis Flu swab negative CT shows evidence of acute sinusitis Started PO levofloxacin, PO prednisone, neb treatments, Mucinex sched, PRN Robitussin/Tessalon, nasal spray. Will continue for total of 5 day course. Initial reports of SOB 2/2 bronchitis.Troponin negative x2; no acute EKG changes on admission. Now resolved. Patient received Clyde x 2 doses for severe headache on admission. This has now resolved by day of discharge. Headache 2/2 sinusitis. # Sinusitis See above # Acute Bacterial Bronchitis See above # Dizziness/lightheadedness: Likely related to sinusitis as noted on head CT Resolved ?? # DM Hemoglobin a1c 8.3 indicating average glucose 192. I explained a1c findings with pt, she voiced understanding and scheduled to see PCP in September Accuchecks/SSI during admission. Discharge on home regimen. ? # HTN Reduce lisinopril dose at discharge. Patient to follow up with PCP for continued management. ? # RLS Continue Requip ? # H/O DVT Continue Xarelto ?? # LUL Cpap at night Consults: None Significant Diagnostic Studies: Recent Labs Lab 08/20/17 1332 08/21/17 0341 08/22/17 0328 WBC 14.1* 12.4* 17.1* RBC 4.39 3.90* 3.89* HGB 11.8* 10.2* 10.5* HCT 37.8* 33.6* 34.2* MCV 86.1 86.2 87.9 MCH 26.9* 26.2* 27.0 MCHC 31.2* 30.4* 30.7* PLT 375 299 320 RDW 15.2* 15.3* 15.1* MPV 9.4 9.7 9.7 PERNEU 71.9* 68.5* 71.7* PERLYM 18.5* 19.7* 17.0* PERMON 6.8 8.5 9.6 Recent Labs Lab 08/20/17 1332 08/21/17 0341 08/22/17 0328 NA 140 138 137 K 3.8 4.2 4.2 CL 107 106 104 CO2 25.9 23.9 25.1 AGAP 10.9 12.3 12.1 BUN 17 12 21* CR 0.77 0.70 0.80 BUNCREATININ 22.0 17.1 26.2* GFRNON 83* >90 80* GFR >90 >90 >90 GLU 242* 188* 243* CA 9.3 9.1 9.2 TP 8.3* -- -- ALB 3.1* -- -- TBIL 0.5 -- -- ALKP 85 -- -- AST 10* -- -- ALT 22 -- -- Recent Labs Lab 08/20/17203108/21/17 0341 HGBA1C -- 8.3* TSH 0.612 -- Recent Labs Lab 08/20/17 1332 INR 1.3 PTT 34.3 Recent Labs Lab 08/20/17 1332 08/20/17 1949 TROP <0.015 <0.015 CPK 60 -- No results for input(s): LACTICACID, PROCT in the last 168 hours. No results for input(s): PH, PCO2, PO2, [id number], BICARBWB, BASEDEFICIT, BASEEXCESS in the akmm066 hours. No results found for this or any previous visit. Radiology Reports : CXR: No acute findings. ?? Head CT: No evidence of acute intracranial hemorrhage, mass effect, or midline shift. CT is insensitive for the detection of acute ischemia. Extensive diffuse sinus opacification. Correlation for signs of acute sinusitis recommended. ?? CTA Chest: No evidence of acute pulmonary embolism. No acute findings. Discharge Exam: Filed Vitals: 08/21/17202308/21/17 2100 08/22/17 0500 08/22/17 0755 BP: 129/73 102/59 Pulse: 93 84 Resp: 20 18 Temp: TempSrc: SpO2: 96% 95% 98% 96% Weight: Height: Physical Exam performed 08/22/2017: -GENERAL: No acute distress, breathing comfortably on room air, sitting up in chair at bedside; clinically much better appearing on this exam -EYES: Extraocular movements intact -ENT: Neck supple, Septum is midline. -LUNG: Decreased breath sounds due to body habitus, No wheezes, No crackles, No rhonchi -CVS: Regular rate rhythm, S1 and S2 normal, No murmurs -ABDOMEN: Soft, nondistended, Nontender, Bowel sounds observed -EXT: Bilateral lower extremity edema (baseline per pt) -NEURO: Alert, awake, oriented x3, No gross neuro deficit -SKIN: Skin color, texture, turgor normal. No rashes or lesions Discharge Medications: Medication List START taking these medications benzonatate 200 MG capsule Commonly known as: TESSALON Take 1 capsule (200 mg total) by mouth 3 (three) times daily as needed for Cough. GuaiFENesin 1200 MG Tb12 Take 1,200 mg by mouth 2 (two) times daily for 5 days. levofloxacin 750 MG tablet Commonly known as: LEVAQUIN Take 1 tablet (750 mg total) by mouth nightly at bedtime for 3 days. First dose 08/22/2017 predniSONE 20 MG tablet Commonly known as: DELTASONE Take 2 tablets (40 mg total) by mouth daily for 3 days. Start taking on: 08/23/2017 CHANGE how you take these medications lisinopril 10 MG tablet Commonly known as: PRINIVIL,ZESTRIL Take 1 tablet (10 mg total) by mouth daily for 30 days. Start taking on: 08/23/2017 What changed: - medication strength - how much to take CONTINUE taking these medications exemestane 25 MG tablet Commonly known as: AROMASIN JANUMET 50-1000 MG Tabs Generic drug: SITagliptin-MetFORMIN HCl polyethylene glycol powder Commonly known as: GLYCOLAX PROVENTIL HFA 108 (90 Base) MCG/ACT inhaler Generic drug: albuterol sulfate HFA ROPINIROLE HYDROCHLORIDE 5 MG Tabs VIRTUSSIN A/C 100-10 MG/5ML syrup Generic drug: guaifenesin-codeine XARELTO 20 MG Tabs tablet Generic drug: rivaroxaban Where to Get Your Medications You can get these medications from any pharmacy Bring a paper prescription for each of these medications ??? benzonatate 200 MG capsule ??? GuaiFENesin 1200 MG Tb12 ??? levofloxacin 750 MG tablet ??? lisinopril 10 MG tablet ??? predniSONE 20 MG tablet Medications Discontinued during this hospitalization: Lisinopril 20 mg daily has been discontinued. Patient has been started on Lisinopril 10 mg daily. Disposition: Home 08/22/2017 Patient Instructions: Diet: Diet Carb Controlled Appropriate; 90g/meal Follow-up appointments: Follow up with PCP in 1 week, sooner if needed. Findings that require further workup: - Hemoglobin a1c elevated at 8.3. Recommend close follow up with PCP for adjustments to DM management. - Blood pressure medication has been adjusted to a lower dose. Recommend close follow up with PCP for adjustments to medication. Followup Lab Orders: CBC, BMP outpatient Time Spent on Discharge: >30 minutes Signed: LILA CARLOS APRN Cosigned by Jodie Upton MD at 08/25/2017 5:34 PM CDT documented in this encounter Discharge Instructions * Attachments The following attachments cannot be sent through Care Everywhere. * SINUSITIS DISCHARGE INSTRUCTIONS, ADULT (ESTONIAN) * LEVOFLOXACIN (SYSTEMIC), ADULT (ESTONIAN) * PREDNISONE, ADULT (ESTONIAN) * GUAIFENESIN, ADULT (ESTONIAN) documented in this encounter Medications at Time of Discharge exemestane 25 MG tablet Take 1 tablet by mouth daily with supper. Give with food 3 08/09/2017 ROPINIROLE HYDROCHLORIDE 5 MG Tab Take 1 tablet (5 mg total) by mouth nightly at bedtime. 3 07/14/2017 benzonatate 200 MG capsule Take 1 capsule (200 mg total) by mouth 3 (three) times daily as needed for Cough. 20 capsule 08/22/2017 8 GuaiFENesin 1200 MG TABLET SR 12 HR Take 1,200 mg by mouth 2 (two) times daily for 5 days. 10 tablet 08/22/2017 8 levofloxacin 750 MG tablet Take 1 tablet (750 mg total) by mouth nightly at bedtime for 3 days. First dose 08/22/2017 3 tablet 08/22/2017 8 lisinopril 10 MG tablet Take 1 tablet (10 mg total) by mouth daily for 30 days. 30 tablet 08/23/2017 8 polyethylene glycol powder Take 17 g by mouth daily as needed (CONSTIPATION ). 0 08/15/2017 9 predniSONE 20 MG tablet Take 2 tablets (40 mg total) by mouth daily for 3 days. 6 tablet 08/23/2017 8 PROVENTIL HFA 108 (90 Base) MCG/ACT inhaler Inhale 2 puffs into the lungs every 4 (four) hours as needed for Wheezing. 0 08/15/2017 8 SITagliptin-MetFORM IN HCl (JANUMET) 50-1000 MG Tab Take 1 tablet by mouth 2 (two) times daily with meals. 04/20/2017 8 VIRTUSSIN A/C 100-10 MG/5ML syrup Take 5 mLs by mouth every 4 (four) hours as needed for Congestion. 0 08/13/2017 8 XARELTO 20 MG Tab tablet Take 20 mg by mouth every evening. 11 08/08/2017 9 documented as of this encounter Progress Notes * Adalid Hoover - 08/22/2017 12:27 PM CDT 08/22/17 1200 Clinical Encounter Type Visited With Patient Total number in room 2 Routine Visit Follow-up Sacramental Encounters Communion Patient wants communion Communion Given Indicator Yes Sacrament of Sick-Anointing yes Anointed by/date Fr. Cordoba 08/22/17 * Nat Gordon, WARDROBE COORDINATOR - 08/22/2017 9:52 AM CDT 08/22/17 0900 Therapy Visit Ordering Provider Dr. Lila Carlos Subjective Pt states she is going hoem today Reason for admission BRONCHITIS Relevant Comorbidities/ Personal Factors to PT PMH: Restless leg syndrome, neuropathy, HTN, DM, hx of breast cancer, hx of blood clots, patient reported hx of chf, tka, mastectomy, hernia repair, cholecystectomy, Pain Pain No Bed Mobility Rolling Independent Supine to Sit Independent Sit to Supine Independent Transfers Sit to Stand Independent Bed to Chair Independent Gait Gait Assistance Modified independence Assistive Device 2 Wheeled walker Ambulation Distance (Feet) 150 Stairs Stair Management Assistance Modified independence Stair Management Technique One rail R Number of Stairs 2 Patient/Family Training Bed Mobility x Transfer Training x Gait Training x Stair Climbing x Recommendation PT Recommendation PT during Hospitalization PT Equipment Recommended 2 Wheeled walker Plan Progress Discontinue PT If this is the last treatment note,it will serve as the discharge summary Yes * Gina Hernandez, PT - 08/21/2017 5:14 PM CDT 08/21/17 0938 Therapy Visit Ordering Provider Dr. Lila Carlos PT Received On 08/21/17 Subjective Patient reports came to hosptial secondary to sob. Patient willing to work with therapy today. Reason for admission Bronchitis Relevant Comorbidities/ Personal Factors to PT PMH: Restless leg syndrome, neuropathy, HTN, DM, hx of breast cancer, hx of blood clots, patient reported hx of chf, tka, mastectomy, hernia repair, cholecystectomy, Precautions General Precautions Other(comment) (limb alert) Home Living Type of Home House Home Layout One level Home Accessibility 2-4 Steps to enter Bathroom Shower/Tub Tub/shower unit Bathroom Toilet Standard Toilet Bathroom Equipment Tub/shower chair with back;Grab bars in shower Home Equipment 2 Wheeled walker (uses walker when legs feel weak) Prior Function Level of Dickinson Independent with functional transfers;Needs assistance with ADLs;Independent with ambulation;Needs assistance with homemaking (pt. daughter assist with getting in/out tub, ADLs, cooking, ) Device used at baseline 2 Wheeled walker (when legs feel weak uses walker) Fall History No Receives Help From Family ADL Assistance Needs assistance Bath (sometimes daughter assist getting in/out shower) Dressing (sometimes dressing for LE) Homemaking Assistance Needs assistance Meal Prep (daughter prepareds most of the meals but pt. can do simple) Laundry (dauther always does laundry it's in basement) Comments Patient reports vasquezer does errands, cleaning, grocery shopping and occasionally the patient with go with daughter. Pain Pain Yes Pain Score 6 Location (headache/pressure on left side ear to nose - worse with coug) Cognition Overall Cognitive Status WFL Orientation Level Oriented X4 Other (Comment) patient reports some lightheadache/dizziness with movement but no falls RUE Assessment RUE Comment see OT evaluation for UE LUE Assessment LUE Comment see OT evaluation for UE RLE Assessment RLE Assessment WFL (except limited hip flexion) RLE Comment gross strength: hip flexion 3- (within available range), knee ext 4- , flex 4, ankle 4+ LLE Assessment LLE Assessment WFL LLE Comment gross strength: hip flexion 3- within available range, knee ext 3+, knee flex 4-/4, ankle 4/4+ Bed Mobility Rolling Modified independence Supine to Sit Modified independence Sit to Supine Modified independence Other (Comment) patient used bed railings Transfers Sit to Stand SBA/supervision (sbs/sbs (close gaurd)) Bed to Chair SBA/supervision (sbs/sbs close guard) Other (Comment) patient started with no a.d with antalgic gait and slight reaching for ferrara with sbs/min assist and then switched with w/w with sbs Gait Gait Assistance SBA/supervision Assistive Device 2 Wheeled walker Ambulation Distance (Feet) 80 ft Stairs Other (Comment) NT Patient/Family Training Bed Mobility x Transfer Training x Gait Training x Other (Comment) One on One education - patient aware of pt poc Assessment Personal Factors/Comorbidities Impacting Care 1-2 personal factors/comorbidities Examination of Body Systems Moderate (3 or more Elements) Objectives of Body Systems Impaired transfers;Impaired ambulation;Decreased endurance Clinical Presentation of Patient Evolving and changing characteristics Complexity Level of Evaluation Moderate Prognosis Good Recommendation PT Recommendation PT during Hospitalization (tbd based on pt progress) PT Equipment Recommended 2 Wheeled walker Plan PT Treatments/Interventions Gait Training;Therapeutic Exercises;Therapeutic Activities;Patient/family training PT Frequency Daily;BID PT plan for next session increase gait training to progress endurance If this is the last treatment note,it will serve as the discharge summary Yes * Jodi Caldwell RN - 08/21/2017 2:51 PM CDT 1015: TULIO performed bedside interview. The patient reports that she lives with her daughter Marin ([phone]) in a ranch home with 2 entry streps. The daughter performs driving and assistance withADLs and home maintenance for the patient. The patient reports she has the following medical devices: CPAP, Glucometer, and BP cuff. She reports that she walks with a walker due to neuropathy. No deficits in Skin/Bowel/ or Bladder is reported. She answers questions correctly and with intent. No deficits in communication or hearing is identified. *Pharmacy used is [facility] in [place], [place]. PCP and insurance plan is verified as correct. *NCM will follow and assist with any necessary discharge planning. * Missy Martinez RN - 08/21/2017 2:07 PM CDT Spoke with Shelli at bedside about age-appropriate screenings and guidelines. Educated patientabout colon cancer screenings and informed patient that she should be getting either a colonoscopy every 10 years or home colon screening yearly. Patient states that she had a colonoscopy a couple ofmonths ago and was negative. Patient has had a bilateral mastectomy and no longer gets mammograms yearly. Patient states that she follows with her oncologist every 3 months in [place]. Educated patient about HPV screening and informed patient that she should be getting a Pap every 3 years or Pap+HPV every 5 years. Patient states that she is due for her next Pap, but has been unable to make appointment due to her bronchitis. Noted that patient has a current LUL diagnosis and uses CPAP at home.Patient denies any issues with CPAP at home and informed patient that she should speak with provider if any issues arise. Provided patient with informational flyer on age-appropriate screenings and guidelines. Encouraged patient to follow-up with Dr. Hoffman after discharge about any future screening questions. Patient verbalizes understanding of all discussed. * EMERSON Arechiga - 08/21/2017 11:10 AM CDT 08/21/17 1102 Therapy Visit Treatment Day (RM ) Reason for admission BRONCHITIS Comorbidities Relevant to OT H/O BREAST CA, HTN, RLS, HYPOTHYROIDISM Previous Occupational Therapy Never Ordering Provider Dr. Lila Carlos Precautions General Precautions Other(comment) (LIMB, CONTACT) Subjective Subjective PT STATES LIVES WITH DGTR IN SINGLE LEVEL HOME WITH BASEMENT. PT STATES WAS ABLE TO COMPLETE MOST SELF CARE IND BUT DGTR ASSISTS NEEDED. DGTR WORKS OUTSIDE HOME DURING THE DAY Home Living Type of Home House Home Layout One level Home Accessibility 2-4 Steps to enter Bathroom Shower/Tub Tub/shower unit Bathroom Toilet Standard Toilet Bathroom Equipment Tub/shower chair with back;Grab bars in shower Home Equipment 2 Wheeled walker Prior Function Level of Dickinson Independent with functional transfers;Independent with ambulation;Needs assistance with homemaking;Needs assistance with ADLs (ASSIST WITH ADLS PRN) Device used at baseline 2 Wheeled walker Fall History No Receives Help From Family ADL Assistance Needs assistance Pain Pain Yes Pain Score 6 Location LEDT SIDE OF HEAD/FACE Interventions Relaxation;Informed RN Activity Tolerance Endurance Tolerates 20 - 30 min activity with rests Cognition Overall Cognitive Status WFL Orientation Level Oriented X4 RUE Assessment RUE Assessment WFL RUE Comment 4/5 LUE Assessment LUE Assessment WFL LUE Comment 4/5 Hand Function Hand Dominance Right Gross Grasp Functional Coordination Functional ADL Eating Assistance Independent Grooming Assistance Independent;Sitting in chair Bathing Assistance Minimal;Alternating sit/stand Bathing Deficit Left lower leg including foot;Right lower leg including foot UE Dressing Assistance Independent;Sitting in chair LE Dressing Assistance Alternating sit/stand;Stand by (S/P SIDE SIT EDU) LE Dressing Deficit Supervision/safety;Verbal cueing Toileting Assistance Modified independent Additional Comments PT COMPLETED LB DRESSING DON/DOFF YANNICK SOCKS FROM SEATED EOB SIDE SIT TECH S/P EDU WITH GOOD SUCCESS. EDU ON LHAE (SOCK AID/WELL DIGGER) FOR INCREASED IND IN THE HOME. PT V/U Bed Mobility Rolling Modified independence Supine to Sit Modified independence Functional Transfers Sit to Stand Modified independence Bed to Chair Modified independence Toilet Transfers Grab bars;Adaptive equipment Other (Comment) PT COMPELTED TOILET XFER EOB->WW->STD TOIELTING BATHROOM ->WW->RECLIENRAPPROX 40 FT WITH MOD IND AND GOOD BALANCE NOTED. Assessment Occupational Profile and History Complexity Moderate (Expanded) Performance Deficit Level Low (1-3 deficits) Clinical Decision Making Low (no modifications) Complexity Level of Evaluation Low Prognosis Good Patient/Family Training Self Cares X Transfer Training X DME Education X Precautions X Other (Comment) 1:1 Recommendation OT Recommendation Home independently Plan Progress Discontinue OT OT Frequency One time visit If this is the last treatment note,it will serve as the discharge summary Yes Objective Objective BASED ON EVAL [id number] PT IS VERY PLEASANT 62 YO WOMAN ADMITTED 2/2 BRONCHITIS. PT WAS ABLE TO COMPLETE MOST BADLS IND WITH OCCASIONAL FAMILY ASSIST WARDROBE COORDINATOR. PT APPEARS AT BASELINE AT EVAL. PT COMPELTE EDU REGARDING LHAE IN ORDER TO INCREASE IND WITH SELF CARE IN THE HOME, V/U. WILL D/C FROM OCC THERAPY. PT IN AGREEMENT WITHPLAN. JENIFFER BUCK OTR/L * Lila Cordelia Carlos, FAMILY SERVICES MANAGER - 08/21/2017 9:57 AM CDT Mohsen Marques is a 62-year-old female patient. Subjective: Patient examined on rounds. She is alert awake, ill appearing. States she's miserable and has been for at least 12 days despite completing a zpack outpatient. She reports continued cough which is non-productive although she states she feels like she needs to cough phlegm up but can't. She reports continued left sided headache, worse with bouts of coughing. Pain is described as pressure and patient points to sinuses on left aspect of face. She denies any visual complaints. She is requesting Clyde for her headache as she states this helped her over night. Patient also notes she becomes short of breath with ambulation and lightheaded when she gets up. No syncopal episodes. I encouraged hydration and patient voiced understanding. Vital signs reviewed and stable. Labs reviewed and stable. Current Facility-Administered Medications Medication Dose Route Frequency Provider Last Rate Last Dose ??? acetaminophen (TYLENOL) tablet 650 mg 650 mg Oral Q4H PRN Sarah Beth Reyes MD ??? acetaminophen-codeine (TYLENOL #3) 300-30 MG tablet 1 tablet 1 tablet Oral Q4H PRN Sarah Beth Reyes MD 1 tablet at 08/20/17 2202 ??? albuterol (PROVENTIL) nebulizer solution 5 mg 5 mg Nebulization Q6H PRN Sarah Beth Reyes MD ??? benzonatate (TESSALON) capsule 200 mg 200 mg Oral TID PRN Sarah Beth Reyes MD ??? guaifenesin (ROBITUSSIN) 100 MG/5ML solution 200 mg 200 mg Oral Q4H PRN Sarah Beth Reyes MD ??? guaifenesin 12 hr (MUCINEX) tablet 1,200 mg 1,200 mg Oral BID Sarah Beth Reyes MD 1,200 mg at 08/21/17 0840 ??? insulin lispro (HUMALOG) injection 0-6 Units 0-6 Units Subcutaneous TID AC Sarah Beth Reyes MD 1 Units at 08/21/17 0840 And ??? insulin lispro (HUMALOG) injection 0-6 Units 0-6 Units Subcutaneous Nightly at bedtime Sarah Beth Reyes MD ??? ipratropium-albuterol (DUONEB) 0.5-2.5 (3) MG/3ML nebulizer solution 3 mL 3 mL Nebulization Q6HWA Sarah Beth Reyes MD 3 mL at 08/21/17 0808 ??? levofloxacin (LEVAQUIN) tablet 750 mg 750 mg Oral Nightly at bedtime Sarah Beth Reyes MD ??? lisinopril (PRINIVIL,ZESTRIL) tablet 10 mg 10 mg Oral Daily Sarah Beth Reyes MD 10 mg at 08/21/17 0840 ??? ondansetron (ZOFRAN) injection 4 mg 4 mg Intravenous Q6H PRN Sarah Beth Reyes MD ??? oxybutynin ER (DITROPAN-XL) 24 hr tablet 5 mg 5 mg Oral Nightly at bedtime Sarah Beth Reyes MD 5 mgat 08/20/172200 ??? polyethylene glycol (GLYCOLAX) packet 17 g 17 g Oral Daily PRN Sarah Beth Reyes MD ??? predniSONE (DELTASONE) tablet 40 mg 40 mg Oral Daily Sarah Beth Reyes MD 40 mg at 08/21/17 0839 ??? rivaroxaban (XARELTO) tablet 20 mg 20 mg Oral QPM Sarah Beth Reyes MD 20 mg at 08/20/172200 ??? ropinirole (REQUIP) tablet 5 mg 5 mg Oral Nightly at bedtime Sarah Beth Reyes MD 5 mg at 08/20/172199 ??? Senna (SENOKOT) 8.6 MG tablet 8.6 mg 8.6 mg Oral Daily PRN Sarah Beth Reyes MD ??? sodium chloride (OCEAN) 0.65 % nasal spray 1 spray 1 spray Each Nare PRN Sarah Beth Reyes MD Allergies Allergen Reactions ??? Cephalosporins Anaphylaxis ??? Rocephin [Ceftriaxone] Shortness of Breath ??? Oxycodone Vomiting ??? Reglan [Metoclopramide] Hyperactive Active Problems: Bronchitis SNOMED CT(R): BRONCHITIS Objective: Filed Vitals: 08/20/17 2041 08/21/17 0053 08/21/17 0615 08/21/17 0810 BP: 120/86 103/57 Pulse: 90 72 87 Resp: Temp: 98.1 ??F (36.7 ??C) 97.9 ??F (36.6 ??C) TempSrc: Oral Oral SpO2: 100% 99% 99% 98% Weight: 130 kg (286 lb 9.6 oz) Height: 5' 1 (1.549 m) Physical Exam: -GENERAL: Ill appearing; No acute distress, breathing comfortably on room air. -EYES: Extraocular movements intact -ENT: Neck supple, Septum is midline. -LUNG: Decreased breath sounds due to body habitus, No wheezes, No crackles -CVS: Regular rate rhythm, S1 and S2 normal, No murmurs -ABDOMEN: Soft, nondistended, Nontender, Bowel sounds observed -EXT: Bilateral lower extremity edema (baseline per pt) -NEURO: Alert, awake, oriented x3, No gross neuro deficit -SKIN: Skin color, texture, turgor normal. No rashes or lesions LABs Recent Labs Lab 08/20/17 1332 08/21/17 0341 NA 140 138 K 3.8 4.2 CL 107 106 CO2 25.9 23.9 AGAP 10.9 12.3 BUN 17 12 CR 0.77 0.70 BUNCREATININ 22.0 17.1 GFRNON 83* >90 GFR >90 >90 GLU 242* 188* CA 9.3 9.1 Recent Labs Lab 08/20/17 1332 08/21/17 0341 WBC 14.1* 12.4* RBC 4.39 3.90* HGB 11.8* 10.2* HCT 37.8* 33.6* MCV 86.1 86.2 MCH 26.9* 26.2* MCHC 31.2* 30.4* PLT 375 299 RDW 15.2* 15.3* MPV 9.4 9.7 PERNEU 71.9* 68.5* PERLYM 18.5* 19.7* PERMON 6.8 8.5 CXR: No acute findings. Head CT: No evidence of acute intracranial hemorrhage, mass effect, or midline shift. CT is insensitive for the detection of acute ischemia. Extensive diffuse sinus opacification. Correlation for signs of acute sinusitis recommended. CTA Chest: No evidence of acute pulmonary embolism. No acute findings. Assessment/Plan: # Sepsis POA tachycardia, leukocytosis Flu swab negative Describes both upper and lower resp symptoms - bronchitis/sinusitis CT shows evidence of acute sinusitis - start prednisone, neb treatments - continue levofloxacin - start Mucinex sched, PRN Robitussin/Tessalon, Nasal spray - PRN Zofran, APAP # Dizziness/lightheadedness: - Likely related to sinusitis as noted on head CT - Will get orthostatic vital signs and BP medication decreased. - Encouraged hydration as dehydration likely contributing - PT/OT ordered ?? # DM - hemoglobin a1c 8.3 indicating average glucose 192 - I explained a1c findings with pt, she voiced understanding and scheduled to see PCP in September - accuchecks/SSI - hold home oral meds - hypoglycemia protocol ?? # HTN Current BP 127/97 - reduce lisinopril dose for now as pt is fatigued and not eating as well; hold parameters added ?? # RLS - continue Requip ?? # H/O DVT - continue Xarelto # LUL - cpap at night LILA CARLOS APRN 08/21/2017 documented in this encounter H&P Notes * Sarah Beth Reyes MD - 08/20/2017 7:55 PM CDT [facility] Mohsen Marques Age: 62-year-old Date of : 1955 Hospital Day: 0 History of Present Illness Mohsen Marques is a 62-year-old female with a PMH of DM, hypothyroidism, HTN, RLS, h/o breast cancer who presents with >10d of SOB and left-sided pranay- orbital/sinus pressure. Also reports chestcongestion, dry cough, nasal congestion. No runny nose, sore throat, post-nasal drip. Also has right-sided chest pain, nausea, post-tussive emesis. No abd pain, dysuria. +Generalized myalgias. +Wheezing. No sick contacts Past Medical History Past Medical History: Diagnosis Date ??? Arthritis ??? Blood clot in vein ??? Breast cancer ??? Cancer ??? Diabetes mellitus ??? Disease of thyroid gland ??? Hypertension ??? Kidney stones ??? Neuropathy ??? Restless leg syndrome ?? Past Surgical History Past Surgical History: Procedure Laterality Date ??? SECTION ??? CHOLECYSTECTOMY ??? HERNIA REPAIR ??? MASTECTOMY ??? TOTAL KNEE ARTHROPLASTY ?? Medications prior to admission Prescriptions Prior to Admission Medication Sig Dispense Refill ??? lisinopril 20 MG tablet Take 20 mg by mouth daily. 1 ??? PROVENTIL HFA 108 (90 Base) MCG/ACT inhaler Inhale 2 puffs into the lungs every 4 (four) hours as needed for Wheezing. 0 ??? ROPINIROLE HYDROCHLORIDE 5 MG Tab Take 5 mg by mouth nightly at bedtime. 3 ??? SITagliptin-MetFORMIN HCl (JANUMET) 50-1000 MG Tab Take 1 tablet by mouth 2 (two) times daily with meals. ??? VIRTUSSIN A/C 100-10 MG/5ML syrup Take 5 mLs by mouth every 4 (four) hours as needed for Congestion. 0 ??? XARELTO 20 MG Tab tablet Take 20 mg by mouth every evening. 11 ??? exemestane 25 MG tablet Take 1 tablet by mouth daily. Give after a meal. 3 ??? polyethylene glycol powder Take 17 g by mouth daily as needed (CONSTIPATION). 0 Allergies Allergies Allergen Reactions ??? Cephalosporins Anaphylaxis ??? Rocephin [Ceftriaxone] Shortness of Breath ??? Oxycodone Vomiting ??? Reglan [Metoclopramide] Hyperactive ?? Social History: Social History Social History ??? Marital status: Spouse name: N/A ??? Number of children: N/A ??? Years of education: N/A Occupational History ??? Not on file. Social History Main Topics ??? Smoking status: Former Smoker Quit date: 03/23/1977 ??? Smokeless tobacco: Never Used ??? Alcohol use No ??? Drug use: No ??? Sexual activity: No Other Topics Concern ??? Not on file Social History Narrative Family History: Family History Problem Relation Age of Onset ??? Aneurysm Mother ??? Diabetes Mother ??? Heart Disease Mother ??? Hyperlipidemia Mother ??? Hypertension Mother ??? Stroke Mother ??? Cancer Father ??? Cancer Sister ??? COPD Sister ??? Depression Sister ??? Cancer Brother Review of Systems:?? Negative except as in HPI Objective: Vitals: 08/20/17 1722 BP: (!) 127/97 Pulse: 104 Resp: Temp: SpO2: 99% Wt Readings from Last 3 Encounters: 08/20/17 127.4 kg (280 lb 13.9 oz) 03/22/17 131.1 kg (289 lb 0.4 oz) Constitutional: in moderate distress, fatigued Eyes: sclera nonicteric?? Ears, Nose, Mouth, Throat: +diffuse left-sided sinus pressure, external ears without deformity, no nasal discharge, oropharynx without erythema, moist mucosal membranes?? Neck: supple, thyroid symmetric, no thyromegaly or thyroid nodules appreciated?? Respiratory: CTAB, good air exchange, no use of accessory muscles?? Cardiovascular: RRR, pulses 2+ and symmetric Gastrointestinal: soft, normal BS, NTND, no organomegaly or masses appreciated?? Ext/MSk: extremities without cyanosis/warmth/erythema, no edema?? Skin: no rashes or skin lesions, no petechiae, no jaundice, no cyanosis/warmth/erythema?? Neurologic: sensation intact to light touch, motor 5/5 throughout Lymphatic: no cervical lymphadenopathy Labs/Imaging: Recent Results (from the past 24 hour(s)) CBC W/DIFF AUTOMATED Collection Time: 08/20/17 1:32 PM Result Value Ref Range WBC 14.1 (H) 4.8 - 10.8 x10'3/uL RBC 4.39 4.20 - 5.40 x10'6/uL HGB 11.8 (L) 12.0 - 16.0 G/DL HCT 37.8 (L) 38.0 - 48.0 % MCV 86.1 81.0 - 99.0 FL MCH 26.9 (L) 27.0 - 31.0 PG MCHC 31.2 (L) 32.0 - 36.0 G/DL RDW 15.2 (H) 11.5 - 14.5 % PLT 375 130 - 400 x10'3/uL MPV 9.4 9.3 - 12.2 FL NEUTROPHILS 71.9 (H) 43.0 - 65.0 % LYMPHOCYTES 18.5 (L) 20.0 - 46.0 % MONOCYTES 6.8 5.0 - 12.0 % EOSINOPHILS 1.9 1.0 - 3.0 % BASOPHILS 0.3 0.0 - 1.0 % IMMATURE GRANS 0.6 0.0 - 1.0 % COMPREHENSIVE METABOLIC PANEL Collection Time: 08/20/17 1:32 PM Result Value Ref Range GLUCOSE 242 (H) 70 - 99 MG/DL BUN 17 7 - 18 MG/DL CREATININE 0.77 0.55 - 1.02 MG/DL SODIUM 140 136 - 145 MMOL/L POTASSIUM 3.8 3.5 - 5.1 MMOL/L CHLORIDE 107 100 - 108 MMOL/L CO2 25.9 21 - 32 MMOL/L CALCIUM 9.3 8.5 - 10.1 MG/DL TOTAL BILIRUBIN 0.5 0.2 - 1.2 MG/DL TOTAL PROTEIN 8.3 (H) 6.4 - 8.2 G/DL ALBUMIN 3.1 (L) 3.4 - 5.0 G/DL AST 10 (L) 15 - 37 U/L ALT 22 14 - 55 U/L ALK PHOS 85 50 - 136 U/L ANION GAP 10.9 8 - 20 MMOL/L BUN CREATININE RATIO 22.0 6 - 26 A/G RATIO 0.6 (L) 1.0 - 2.0 RATIO eGFR Non-Afr. Amer. 83 (L) >90 ML/MIN/1.73 M2 eGFR Afr. Amer. >90 >90 ML/MIN/1.73 M2 TROPONIN, QUANT Collection Time: 08/20/17 1:32 PM Result Value Ref Range TROPONIN I <0.015 <0.045 ng/mL. CK (CPK) Collection Time: 08/20/17 1:32 PM Result Value Ref Range CPK 60 21 - 215 U/L MAGNESIUM Collection Time: 08/20/17 1:32 PM Result Value Ref Range MAGNESIUM 2.0 1.8 - 2.4 MG/DL CKMB(MB FRACTION ONLY) Collection Time: 08/20/17 1:32 PM Result Value Ref Range CK-MB 2.7 0.5 - 3.6 NG/ML PROTIME/INR, VENOUS Collection Time: 08/20/17 1:32 PM Result Value Ref Range Protime 13.9 (H) 9.6 - 12.2 SEC INR 1.3 PARTIAL THROMBOPLASTIN TIME,PTT Collection Time: 08/20/17 1:32 PM Result Value Ref Range PTT 34.3 25.5 - 37.6 SEC D-DIMER, QUANTITATIVE Collection Time: 08/20/17 1:32 PM Result Value Ref Range D-DIMER <150 0 - 230 D DU ng/mL BNP Collection Time: 08/20/17 1:32 PM Result Value Ref Range B TYPE NATRIURETIC PEPTIDE 13 <100 PG/ML THYROXINE, FREE (FT4) Collection Time: 08/20/17 1:32 PM Result Value Ref Range FREE T4 1.01 0.76 - 1.46 NG/DL INFLUENZA A & B Collection Time: 08/20/17 5:24 PM Result Value Ref Range Specimen Type NASAL INFLUENZA A NEGATIVE NEGATIVE INFLUENZA B NEGATIVE NEGATIVE CXR PA/Lat =====IMPRESSION:===== No acute findings. CTA Chest FINDINGS: VASCULAR FINDINGS: Adequate opacification of the pulmonary arteries. No evidence of acute pulmonary embolism. NONVASCULAR FINDINGS: On lung windows, no suspicious pulmonary lesion, pneumothorax, or pleural effusion. On soft tissue windows, no axillary or supraclavicular lymphadenopathy. On mediastinal windows, no evidence of hilar or mediastinal lymphadenopathy. Heart size normal. No pericardial effusion.? Limited evaluation of the upper abdomen demonstrates no acute abnormality. Prior cholecystectomy. On bone windows, no suspicious skeletal lesion or acute compression fracture deformity. IMPRESSION: 1. No evidence of acute pulmonary embolism. No acute findings. CT Head wo contrast FINDINGS: No evidence of scalp hematoma or significant soft tissue swelling.? Limited evaluation of the paranasal sinuses and mastoids demonstrates severe opacification of the ethmoid air cells, sphenoid sinuses, maxillary sinuses, frontal sinuses bilaterally. Intracranially, no evidence of hemorrhage, mass effect, or midline shift. CSF spaces are within normal limits. Posterior cranial fossa are unremarkable. =====IMPRESSION:===== No evidence of acute intracranial hemorrhage, mass effect, or midline shift. CT is insensitive for the detection of acute ischemia. Extensive diffuse sinus opacification. Correlation for signs of acute sinusitis recommended. Assessment/Plan: # Sepsis POA tachycardia, leukocytosis Flu swab negative Describes both upper and lower resp symptoms - bronchitis/sinusitis CT shows evidence of acute sinusitis - start prednisone, neb treatments - continue levofloxacin - start Mucinex sched, PRN Robitussin/Tessalon, Nasal spray - PRN Zofran, APAP # DM - check A1c - accuchecks/SSI - hold home oral meds - hypoglycemia protocol # HTN Current BP 127/97 - reduce lisinopril dose for now as pt is fatigued and not eating as well; hold parameters added # RLS - continue Requip # H/O DVT - continue Xarelto SARAH BETH REYES MD 08/20/2017 documented in this encounter ED Notes * Fernando Lind RN - 08/20/2017 8:20 PM CDT Nurse called and report given * Fernando Lind RN - 08/20/2017 8:12 PM CDT [facility]AR tubed to floor * Tylor Brewer MD - 08/20/2017 5:12 PM CDT [place], [place] EMERGENCY DEPARTMENT ENCOUNTER HISTORICAL INFORMATION Primary Care Doctor: GERARDO HOFFMAN MD Patient information was obtained primarily from the patient, nursing notes History/Exam limitations: None Provider at Bedside Date/Time Event User Comments 08/20/17 1528 Provider at Bedside Assessing Patient TYLOR BREWER CHIEF COMPLAINT Respiratory Symptoms (cough, sob, occasional low grade fevers x 2 weeks. Feel run down ) HPI Mohsen Marques is a 62-year-old female who presents to the ED stating she is just feeling terrible, reports cough and chest congestion, cough occasionally productive of white sputum, reports feeling more short of breath over the past 10 days, reports low grade fevers, feeling run down, has no energy, has malaise, fatigue, generalized weakness. No chest pain currently but reports chest pain with exertion and trying to walk around the house, reports a dull aching headache, no visual changes, no neck or back pain, no abdominal pain, no numbness/tingling/motor weakness. She reports near syncope. States anytime she gets up she feels like she is going to pass out, gets very winded with exertion, states she just can't get up and around. PAST MEDICAL HISTORY Past Medical History: Diagnosis Date ??? Arthritis ??? Blood clot in vein ??? Breast cancer ??? Cancer ??? Diabetes mellitus ??? Disease of thyroid gland ??? Hypertension ??? Kidney stones ??? Neuropathy ??? Restless leg syndrome SURGICAL HISTORY Past Surgical History: Procedure Laterality Date ??? SECTION ??? CHOLECYSTECTOMY ??? HERNIA REPAIR ??? MASTECTOMY ??? TOTAL KNEE ARTHROPLASTY CURRENT MEDICATIONS Current Facility-Administered Medications: ??? acetaminophen (TYLENOL) tablet 650 mg, 650 mg, Oral, Q4H PRN, Sarah Beth Reyes MD ??? acetaminophen-codeine (TYLENOL #3) 300-30 MG tablet 1 tablet, 1 tablet, Oral, Q4H PRN, Sarah Beth Reyes MD, 1 tablet at 08/20/17 2202 ??? albuterol (PROVENTIL) nebulizer solution 5 mg, 5 mg, Nebulization, Q6H PRN, Sarah Beth Reyes MD ??? benzonatate (TESSALON) capsule 200 mg, 200 mg, Oral, TID PRN, Sarah Beth Reyes MD ??? guaifenesin (ROBITUSSIN) 100 MG/5ML solution 200 mg, 200 mg, Oral, Q4H PRN, Sarah Beth Reyes MD ??? guaifenesin 12 hr (MUCINEX) tablet 1,200 mg, 1,200 mg, Oral, BID, Sarah Beth Reyes MD, 1,200 mg at 08/21/17 0840 ??? insulin lispro (HUMALOG) injection 0-6 Units, 0-6 Units, Subcutaneous, TID AC, 2 Units at 08/21/17 1149 AND insulin lispro (HUMALOG) injection 0-6 Units, 0-6 Units, Subcutaneous, Nightly at bedtime, Sarah Beth Reyes MD ??? ipratropium-albuterol (DUONEB) 0.5-2.5 (3) MG/3ML nebulizer solution 3 mL, 3 mL, Nebulization, Q6H WA, Sarah Beth Reyes MD, 3 mL at 08/21/17 0808 ??? levofloxacin (LEVAQUIN) tablet 750 mg, 750 mg, Oral, Nightly at bedtime, Sarah Beth Reyes MD ??? lisinopril (PRINIVIL,ZESTRIL) tablet 10 mg, 10 mg, Oral, Daily, Sarah Beth Reyes MD, 10 mg at 08/21/17 0840 ??? ondansetron (ZOFRAN) injection 4 mg, 4 mg, Intravenous, Q6H PRN, Sarah Beth Reyes MD ??? oxybutynin ER (DITROPAN-XL) 24 hr tablet 5 mg, 5 mg, Oral, Nightly at bedtime, Sarah Beth Reyes MD,5 mg at 08/20/172200 ??? polyethylene glycol (GLYCOLAX) packet 17 g, 17 g, Oral, Daily PRN, Sarah Beth Reyes MD ??? predniSONE (DELTASONE) tablet 40 mg, 40 mg, Oral, Daily, Sarah Beth Reyes MD, 40 mg at 08/21/17 0839 ??? rivaroxaban (XARELTO) tablet 20 mg, 20 mg, Oral, QPM, Sarah Beth Reyes MD, 20 mg at 08/20/172200 ??? ropinirole (REQUIP) tablet 5 mg, 5 mg, Oral, Nightly at bedtime, Sarah Beth Reyes MD, 5 mg at 08/20/170 ??? Senna (SENOKOT) 8.6 MG tablet 8.6 mg, 8.6 mg, Oral, Daily PRN, Sarah Beth Reyes MD ??? sodium chloride (OCEAN) 0.65 % nasal spray 1 spray, 1 spray, Each Nare, PRN, Sarah Beth Reyes MD ALLERGIES Allergies Allergen Reactions ??? Cephalosporins Anaphylaxis ??? Rocephin [Ceftriaxone] Shortness of Breath ??? Oxycodone Vomiting ??? Reglan [Metoclopramide] Hyperactive FAMILY HISTORY Family History Problem Relation Age of Onset ??? Aneurysm Mother ??? Diabetes Mother ??? Heart Disease Mother ??? Hyperlipidemia Mother ??? Hypertension Mother ??? Stroke Mother ??? Cancer Father ??? Cancer Sister ??? COPD Sister ??? Depression Sister ??? Cancer Brother SOCIAL HISTORY Social History Social History ??? Marital status: Spouse name: N/A ??? Number of children: N/A ??? Years of education: N/A Social History Main Topics ??? Smoking status: Former Smoker Quit date: 03/23/1977 ??? Smokeless tobacco: Never Used ??? Alcohol use No ??? Drug use: No ??? Sexual activity: No Other Topics Concern ??? None Social History Narrative REVIEW OF SYSTEMS Constitutional: see hpi Eyes: Denies photophobia or discharge. HENT: Denies sore throat or ear pain. Respiratory: see hpi Cardiovascular: see hpi GI: see hpi Musculoskeletal: Denies back pain. Skin: Denies rash. Neurologic: Denies headache, focal weakness or sensory changes. Endocrine: Denies polyuria or polydypsia. Lymphatic: Denies swollen glands. Psychiatric: Denies depression, suicidal ideation or homicidal ideation. See HPI for further details. All systems negative except as marked. PHYSICAL EXAM VITAL SIGNS: Filed Vitals: 08/21/17 0810 08/21/17 1028 08/21/17 1031 08/21/17 1034 BP: 112/63 131/88 141/87 Pulse: 87 84 90 96 Resp: Temp: 97.8 ??F (36.6 ??C) TempSrc: SpO2: 98% 95% 100% 98% Weight: Height: Constitutional: Well developed, Well nourished, No acute distress, Non-toxic appearance. HENT: Normocephalic, Atraumatic, Bilateral external ears normal, Oropharynx moist, No oral exudates, Nose normal. Eyes: PERRL, EOMI, Conjunctiva normal, No discharge. Neck- Normal range of motion, No tenderness, Supple, No stridor. Respiratory: A bit coarse in the bases but otherwise good aeration, clears with coughing. Cardiovascular: Normal heart rate, Normal rhythm GI: Bowel sounds normal, Soft, No tenderness, No masses, No pulsatile masses. Musculoskeletal: Intact distal pulses, trc edema, No tenderness, No cyanosis, No clubbing. Good range of motion in all major joints. No tenderness to palpation or major deformities noted. Back- No tenderness. Integument: Warm, Dry, No erythema, No rash. Lymphatic: No lymphadenopathy noted. Neurologic: Alert & oriented x 3, Normal motor function, Normal sensory function, No focal deficits noted. Psychiatric: Affect normal, Judgment normal, Mood normal. Pulse Oximetry Interpretation Saturation: 98% Oxygen Delivery: ra Interpretation: normal Rhythm Strip Interpretation (interpreted by ED provider) Rhythm: sinus Ventricular Rate: 90 bpm EKG (interpreted by ED provider) 08/20/17 1315 Sinus with vr 84 bpm, no acute ischemic abnormality, qt/qtc 339/402. RADIOLOGY I have independently reviewed all imaging for today's visit. Xr Chest Pa+lat Result Date: 08/20/2017 EXAMINATION: PA AND LATERAL CHEST Exam date/time: 08/20/2017 1:09 PM Reason For Exam: Shortness of breath Comparison: 11/01/2016 Technique: 2 views. Findings: Heart size normal. Proximal airways unremarkable. No suspicious pulmonary lesion, pneumothorax, or pleural effusion. =====IMPRESSION:===== No acute findings. Differential diagnosis: Differential diagnosis includes: Pneumonia, Respiratory Failure, Pulmonary Embolus, ACS, COPD, CHF, Pneumothorax, Metabolic Disorder, Anxiety ED COURSE & MEDICAL DECISION MAKING Pertinent Labs & Imaging studies reviewed. (See chart for details) Results for orders placed or performed during the hospital encounter of 08/20/17 CBC W/DIFF AUTOMATED Result Value Ref Range WBC 14.1 (H) 4.8 - 10.8 x10'3/uL RBC 4.39 4.20 - 5.40 x10'6/uL HGB 11.8 (L) 12.0 - 16.0 G/DL HCT 37.8 (L) 38.0 - 48.0 % MCV 86.1 81.0 - 99.0 FL MCH 26.9 (L) 27.0 - 31.0 PG MCHC 31.2 (L) 32.0 - 36.0 G/DL RDW 15.2 (H) 11.5 - 14.5 % PLT 375 130 - 400 x10'3/uL MPV 9.4 9.3 - 12.2 FL NEUTROPHILS 71.9 (H) 43.0 - 65.0 % LYMPHOCYTES 18.5 (L) 20.0 - 46.0 % MONOCYTES 6.8 5.0 - 12.0 % EOSINOPHILS 1.9 1.0 - 3.0 % BASOPHILS 0.3 0.0 - 1.0 % IMMATURE GRANS 0.6 0.0 - 1.0 % COMPREHENSIVE METABOLIC PANEL Result Value Ref Range GLUCOSE 242 (H) 70 - 99 MG/DL BUN 17 7 - 18 MG/DL CREATININE 0.77 0.55 - 1.02 MG/DL SODIUM 140 136 - 145 MMOL/L POTASSIUM 3.8 3.5 - 5.1 MMOL/L CHLORIDE 107 100 - 108 MMOL/L CO2 25.9 21 - 32 MMOL/L CALCIUM 9.3 8.5 - 10.1 MG/DL TOTAL BILIRUBIN 0.5 0.2 - 1.2 MG/DL TOTAL PROTEIN 8.3 (H) 6.4 - 8.2 G/DL ALBUMIN 3.1 (L) 3.4 - 5.0 G/DL AST 10 (L) 15 - 37 U/L ALT 22 14 - 55 U/L ALK PHOS 85 50 - 136 U/L ANION GAP 10.9 8 - 20 MMOL/L BUN CREATININE RATIO 22.0 6 - 26 A/G RATIO 0.6 (L) 1.0 - 2.0 RATIO eGFR Non-Afr. Amer. 83 (L) >90 ML/MIN/1.73 M2 eGFR Afr. Amer. >90 >90 ML/MIN/1.73 M2 TROPONIN, QUANT Result Value Ref Range TROPONIN I <0.015 <0.045 ng/mL. CK (CPK) Result Value Ref Range CPK 60 21 - 215 U/L MAGNESIUM Result Value Ref Range MAGNESIUM 2.0 1.8 - 2.4 MG/DL CKMB(MB FRACTION ONLY) Result Value Ref Range CK-MB 2.7 0.5 - 3.6 NG/ML PROTIME/INR, VENOUS Result Value Ref Range Protime 13.9 (H) 9.6 - 12.2 SEC INR 1.3 PARTIAL THROMBOPLASTIN TIME,PTT Result Value Ref Range PTT 34.3 25.5 - 37.6 SEC D-DIMER, QUANTITATIVE Result Value Ref Range D-DIMER <150 0 - 230 D DU ng/mL Amount and/or Complexity of Data Reviewed Triage notes and available nursing notes reviewed Clinical lab tests: ordered and reviewed Tests in the radiology section: ordered and reviewed Independent visualization of images, tracings: yes Decide to obtain previous medical records or to obtain history from someone other than the patient:yes Review and summarize past medical records: yes Discuss the patient with other providers: yes FINAL IMPRESSION SNOMED CT(R) 1. Chest pain, unspecified type CHEST PAIN 2. Nonintractable headache, unspecified chronicity pattern, unspecified headache type HEADACHE 3. Weakness ASTHENIA 4. Other fatigue FATIGUE 5. Abnormal CT scan, sinus COMPUTED TOMOGRAPHY RESULT ABNORMAL D/w Dr Vora, admit for observation and further management. Tylor Brewer M.D., [facility] Emergency Medicine Physician Addendum: The CT scan does not show pneumonia or a bronchitis, d/w hospitalist, empiric abx given though no specific source at this time. Tylor Brewer MD 08/21/17 1339 documented in this encounter Plan of Treatment Not on file documented as of this encounter Procedures Procedure Name Priority Date/Time Associated Diagnosis Comments POCT GLUCOSE - SAVAGE DOCKED DEVICE Routine 08/22/2017 11:39 AM CDT POCT GLUCOSE - SAVAGE DOCKED DEVICE Routine 08/22/2017 6:00 AM CDT BASIC METABOLIC PANEL Routine 08/22/2017 3:28 AM CDT CBC W/DIFF AUTOMATED Routine 08/22/2017 3:28 AM CDT POCT GLUCOSE - SAVAGE DOCKED DEVICE Routine 08/21/2017 10:11 PM CDT POCT GLUCOSE - SAVAGE DOCKED DEVICE Routine 08/21/2017 4:39 PM CDT POCT GLUCOSE - SAVAGE DOCKED DEVICE Routine 08/21/2017 11:22 AM CDT MRSA SCREENING Routine 08/21/2017 5:50 AM CDT POCT GLUCOSE - SAVAGE DOCKED DEVICE Routine 08/21/2017 5:35 AM CDT HEMOGLOBIN, GLYCOSYLATED Routine 08/21/2017 3:41 AM CDT BASIC METABOLIC PANEL Routine 08/21/2017 3:41 AM CDT CBC W/DIFF AUTOMATED Routine 08/21/2017 3:41 AM CDT POCT GLUCOSE - SAVAGE DOCKED DEVICE Routine 08/20/2017 8:59 PM CDT THYROID STIM HORMONE TSH Routine 08/20/2017 8:32 PM CDT TROPONIN, QUANT STAT 08/20/2017 7:49 PM CDT INFLUENZA A & B STAT 08/20/2017 5:24 PM CDT CTA CHEST STAT 08/20/2017 4:[address] HEAD WO CON STAT 08/20/2017 4:59 PM CDT ECG 12-LEAD STAT 08/20/2017 2:44 PM CDT XR CHEST PA+LAT STAT 08/20/2017 2:19 PM CDT BNP STAT 08/20/2017 1:32 PM CDT PARTIAL THROMBOPLASTIN TIME,PTT STAT 08/20/2017 1:32 PM CDT PROTHROMBIN TIME, VENOUS STAT 08/20/2017 1:32 PM CDT COMPREHENSIVE METABOLIC PANEL STAT 08/20/2017 1:32 PM CDT D-DIMER, QUANTITATIVE STAT 08/20/2017 1:32 PM CDT CKMB(MB FRACTION ONLY) STAT 8 1:32 PM CDT CBC W/DIFF AUTOMATED STAT 08/20/2017 1:32 PM CDT THYROXINE, FREE (FT4) STAT 08/20/2017 1:32 PM CDT TROPONIN, QUANT STAT 08/20/2017 1:32 PM CDT MAGNESIUM STAT 08/20/2017 1:32 PM CDT CK (CPK) STAT 08/20/2017 1:32 PM CDT documented in this encounter Results * (ABNORMAL) POCT glucose (08/22/2017 11:39 AM CDT) GLUCOSE POC 342(H) 70 - 99 mg/dL 08/22/2017 11:43 AM CDT [facility] ORDERS INTERFACE 08/22/2017 11:3 9 AM CDT us Yesi Vora MD POCT ORDERABLES - DEVICE Final Result Performing Organization Address [facility] de Phone Number [facility] ORDERS INTERFACE US * (ABNORMAL) POCT glucose (08/22/2017 6:00 AM CDT) GLUCOSE POC 255(H) 70 - 99 mg/dL 08/22/2017 6:04 AM CDT [facility] ORDERS INTERFACE 08/22/2017 6:00 AM CDT us Yesi Vora MD POCT ORDERABLES - DEVICE Final Result Performing Organization Address [facility] Co de Phone Number [facility] ORDERS INTERFACE US * (ABNORMAL) BASIC METABOLIC PANEL (08/22/2017 3:28 AM CDT) GLUCOSE 243(H) 70 - 99 MG/DL 08/22/2017 4:55 AM [facility] BUN 21(H) 7 - 18 MG/DL 08/22/2017 4:55 AM [facility] CREATININE S/P/B 0.80 0.55 - 1.02 MG/DL 08/22/2017 4:55 AM [facility] SODIUM S/P/B 137 136 - 145 MMOL/L 08/22/2017 4:55 AM [facility] POTASSIUM S/P/B 4.2 3.5 - 5.1 MMOL/L 08/22/2017 4:55 AM [facility] CHLORIDE S/P/B 104 100 - 108 MMOL/L 08/22/2017 4:55 AM [facility] CO2 25.1 21 - 32 MMOL/L 08/22/2017 4:55 AM [facility] CALCIUM S/P/B 9.2 8.5 - 10.1 MG/DL 08/22/2017 4:55 AM [facility] ANION GAP 12.1 8 - 20 MMOL/L 08/22/2017 4:55 AM [facility] BUN CREATININE RATIO 26.2(H) 6 - 26 08/22/2017 4:55 AM [facility] EGFR NON-AFR. AMER. 80(L) >90 ML/MIN/1.7 3 M2 08/22/2017 4:55 AM [facility] EGFR AFR. AMER. >90 >90 ML/MIN/1.7 3 M2 08/22/2017 4:55 AM [facility] Comment: NOTE: eGFR is not calculated for patients <18 years of age. This is an estimated GFR (CKD EPI) and should not be used for calculating drug doses. 08/22/2017 3:28 AM CDT us Lila Mathis APRN LABORATORY Final Result [facility] [address] [place] [address], [place] [phone] * (ABNORMAL) CBC W/DIFF AUTOMATED (08/22/2017 3:28 AM CDT) WBC 17.1(H) 4.8 - 10.8 x10'3/uL 08/22/2017 4:16 AM CDT [facility] RBC 3.89(L) 4.20 - 5.40 x10'6/uL 08/22/2017 4:16 AM CDT [facility] HGB 10.5(L) 12.0 - 16.0 G/DL 08/22/2017 4:16 AM CDT [facility] HCT 34.2(L) 38.0 - 48.0 % 08/22/2017 4:16 AM CDT [facility] MCV 87.9 81.0 - 99.0 FL 08/22/2017 4:16 AM CDT [facility] MCH 27.0 27.0 - 31.0 PG 08/22/2017 4:16 AM CDT [facility] MCHC 30.7(L) 32.0 - 36.0 G/DL 08/22/2017 4:16 AM CDT [facility] RDW 15.1(H) 11.5 - 14.5 % 08/22/2017 4:16 AM CDT [facility] PLT 320 130 - 400 x10'3/uL 08/22/2017 4:16 AM CDT [facility] MPV 9.7 9.3 - 12.2 FL 08/22/2017 4:16 AM CDT [facility] NEUTROPHILS % 71.7(H) 43.0 - 65.0 % 08/22/2017 4:16 AM CDT [facility] LYMPHOCYTES % 17.0(L) 20.0 - 46.0 % 08/22/2017 4:16 AM CDT [facility] MONOCYTES % 9.6 5.0 - 12.0 % 08/22/2017 4:16 AM CDT [facility] EOSINOPHILS 0.7(L) 1.0 - 3.0 % 08/22/2017 4:16 AM CDT [facility] BASOPHILS 0.2 0.0 - 1.0 % 08/22/2017 4:16 AM CDT [facility] IMMATURE GRANS % 0.8 0.0 - 1.0 % 08/22/2017 4:16 AM CDT [facility] 08/22/2017 3:28 AM CDT us Lila Mathis APRN LABORATORY Final Result [facility] [address] [place] [address], [place] [phone] * (ABNORMAL) POCT glucose (08/21/2017 10:11 PM CDT) [facility] GLUCOSE POC 334(H) 70 - 99 mg/dL 08/21/2017 10:19 PM CDT [facility] ORDERS INTERFACE 08/21/2017 10:1 1 PM CDT us Yesi Vora MD POCT ORDERABLES - DEVICE Final Result [facility] ORDERS INTERFACE US * (ABNORMAL) POCT glucose (08/21/2017 4:39 PM CDT) GLUCOSE POC 260(H) 70 - 99 mg/dL 08/21/2017 4:42 PM CDT [facility] ORDERS INTERFACE 08/21/2017 4:39 PM CDT Yesi Vora MD POCT ORDERABLES - DEVICE Final Result [facility] ORDERS INTERFACE US * (ABNORMAL) POCT glucose (08/21/2017 11:22 AM CDT) GLUCOSE POC 195(H) 70 - 99 mg/dL 08/21/2017 11:24 AM CDT [facility] ORDERS INTERFACE 08/21/2017 11:2 2 AM CDT Yesi Vora MD POCT ORDERABLES - DEVICE Final Result Performing Organization Address [facility]/ZIP Co de Phone Number [facility] ORDERS INTERFACE US * MRSA SCREENING (08/21/2017 5:50 AM CDT) SPEC DESCRIPTION NASAL 08/21/2017 5:54 AM CDT [facility] SPECIAL REQUESTS NO SPECIAL REQUEST Successful Call: CRISTIAN GALAVIZ called 08/22/2017 07:15 AM to ROOM [id number] (*[id number]/DAVID NASCIMENTO) by [id number]. Read Back: Yes Successful Call: PEPE SALAZAR SDESSRE Q called 08/22/2017 07:20 AM to ROOM [id number] (*[id number]/DAVID NASCIMENTO) by [id number]. Read Back: Yes 08/21/2017 5:54 AM CDT [facility] CULTURE RESULT METHICILLIN RESISTANT STAPH AUREUS PRESENT FOLLOW ISOLATION PROTOCOL. 08/22/2017 7:19 AM CDT [facility] CULTURE RESULT POSITIVE RESULTS NEED PHONED TO PHYSICIAN, BY NURSING STAFF, MALDONADO, FOR POSSIBLE DECOLONIZATION PROTOCOL ORDERS. Successful Call: PEPE SALAZAR SDES,SRE Q called 08/22/2017 07:20 AM to ROOM [id number] (*[id number]/DAVID NASCIMENTO) by [id number]. Read Back: Yes 08/22/2017 7:19 AM CDT [facility] SPECIMEN FROM INTERNAL NOSE / Unknown 08/21/2017 5:50 AM CDT 08/21/2017 6:29 AM CDT Yesi Vora MD MICROBIOLOGY - GENERAL O RDERABLES Final Result [facility] [address] [place] [address], [place] [phone] * (ABNORMAL) POCT glucose (08/21/2017 5:35 AM CDT) GLUCOSE POC 146(H) 70 - 99 mg/dL 08/21/2017 5:40 AM CDT [facility] ORDERS INTERFACE 08/21/2017 5:35 AM CDT Yesi Vora MD POCT ORDERABLES - DEVICE Final Result Performing Organization Address City/[facility]/ZIP Co de Phone Number [facility] ORDERS INTERFACE US * (ABNORMAL) HEMOGLOBIN, GLYCOSYLATED (08/21/2017 3:41 AM CDT) HGB A1C 8.3(H) 4.2 - 6.3 % 08/21/2017 4:22 AM CDT [facility] Comment: ADA GUIDELINES 2010 5.7 TO 6.4% INCREASED RISK OF DIABETES > OR = 6.5% CONSISTENT WITH DIABETES ESTIMATED AVG GLUCOSE 192 mg/dL 08/21/2017 4:22 AM CDT [facility] 08/21/2017 3:41 AM CDT Sarah Beth Reyes MD LABORATORY Final Result [facility] [address] [place] [address], * (ABNORMAL) BASIC METABOLIC PANEL (08/21/2017 3:41 AM CDT) [facility] GLUCOSE 188(H) 70 - 99 MG/DL 08/21/2017 6:32 AM CDT [facility] BUN 12 7 - 18 MG/DL 08/21/2017 6:32 AM CDT [facility] CREATININE S/P/B 0.70 0.55 - 1.02 MG/DL 08/21/2017 6:32 AM CDT [facility] SODIUM S/P/B 138 136 - 145 MMOL/L 08/21/2017 6:32 AM T [facility] POTASSIUM S/P/B 4.2 3.5 - 5.1 MMOL/L 08/21/2017 6:32 AM T [facility] CHLORIDE S/P/B 106 100 - 108 MMOL/L 08/21/2017 6:32 AM T [facility] CO2 23.9 21 - 32 MMOL/L 08/21/2017 6:32 AM T [facility] CALCIUM S/P/B 9.1 8.5 - 10.1 MG/DL 08/21/2017 6:32 AM T [facility] ANION GAP 12.3 8 - 20 MMOL/L 08/21/2017 6:32 AM T [facility] BUN CREATININE RATIO 17.1 6 - 26 08/21/2017 6:32 AM CDT [facility] EGFR NON-AFR. AMER. >90 >90 ML/MIN/1.7 3 M2 08/21/2017 6:32 AM CDT [facility] EGFR AFR. AMER. >90 >90 ML/MIN/1.7 3 M2 08/21/2017 6:32 AM T [facility] Comment: NOTE: eGFR is not calculated for patients <18 years of age. This is an estimated GFR (CKD EPI) and should not be used for calculating drug doses. 08/21/2017 3:41 AM CDT us Sarah Beth Reyes MD LABORATORY Final Result [facility] [address] [place] [address], [place] [phone] * (ABNORMAL) CBC W/DIFF AUTOMATED (08/21/2017 3:41 AM CDT) WBC 12.4(H) 4.8 - 10.8 x10'3/uL 08/21/2017 4:05 AM CDT [facility] RBC 3.90(L) 4.20 - 5.40 x10'6/uL 08/21/2017 4:05 AM CDT [facility] HGB 10.2(L) 12.0 - 16.0 G/DL 08/21/2017 4:05 AM CDT [facility] HCT 33.6(L) 38.0 - 48.0 % 08/21/2017 4:05 AM CDT [facility] MCV 86.2 81.0 - 99.0 FL 08/21/2017 4:05 AM CDT [facility] MCH 26.2(L) 27.0 - 31.0 PG 08/21/2017 4:05 AM CDT [facility] MCHC 30.4(L) 32.0 - 36.0 G/DL 08/21/2017 4:05 AM CDT [facility] RDW 15.3(H) 11.5 - 14.5 % 08/21/2017 4:05 AM CDT [facility] PLT 299 130 - 400 x10'3/uL 08/21/2017 4:05 AM CDT [facility] MPV 9.7 9.3 - 12.2 FL 08/21/2017 4:05 AM CDT [facility] NEUTROPHILS % 68.5(H) 43.0 - 65.0 % 08/21/2017 4:05 AM CDT [facility] LYMPHOCYTES % 19.7(L) 20.0 - 46.0 % 08/21/2017 4:05 AM CDT [facility] MONOCYTES % 8.5 5.0 - 12.0 % 08/21/2017 4:05 AM CDT [facility] EOSINOPHILS 2.5 1.0 - 3.0 % 08/21/2017 4:05 AM CDT [facility] BASOPHILS 0.3 0.0 - 1.0 % 08/21/2017 4:05 AM CDT [facility] IMMATURE GRANS % 0.5 0.0 - 1.0 % 08/21/2017 4:05 AM CDT [facility] 08/21/2017 3:41 AM CDT us Sarah Beth Reyes MD LABORATORY Final Result Performing Organization Address City/[facility]/ZIP Co de Phone Number [facility] [address] [place] [address], [place] [phone] * (ABNORMAL) POCT glucose (08/20/2017 8:59 PM CDT) GLUCOSE POC 161(H) 70 - 99 mg/dL 08/20/2017 9:04 PM CDT [facility] ORDERS INTERFACE 08/20/2017 8:59 PM CDT us Yesi Vora MD POCT ORDERABLES - DEVICE Final Result [facility] ORDERS INTERFACE US * THYROID STIM HORMONE, TSH (08/20/2017 8:32 PM CDT) TSH 0.612 0.358 - 3.74 uIU/ML 08/20/2017 9:40 PM CDT [facility] Comment: HIGH DOSES OF BIOTIN MAY INTERFERE WITH THIS TEST RESULT. CORRELATION TO CLINICAL HISTORY AND PRESENTATION RECOMMENDED. 08/20/2017 8:32 PM CDT Sarah Beth Reyes MD LABORATORY Final Result Performing Organization Address City/[facility]/ZIP Co de Phone Number [facility] [address] [place] [address], [place] [phone] * TROPONIN, QUANT (08/20/2017 7:49 PM CDT) TROPONIN I <0.015 <0.045 ng/mL. 08/20/2017 8:35 PM CDT [facility] Comment: HIGH DOSES OF BIOTIN MAY INTERFERE WITH THIS TEST RESULT. CORRELATION TO CLINICAL HISTORY AND PRESENTATION RECOMMENDED. 08/20/2017 7:49 PM CDT Tylor Brewer MD LABORATORY Final Resu lt [facility] [address] [place] [address], [place] [phone] * INFLUENZA A & B (08/20/2017 5:24 PM CDT) SPECIMEN TYPE NASAL 08/20/2017 5:35 PM CDT [facility] INFLUENZA A NEGATIVE NEGATIVE 08/20/2017 6:01 PM CDT [facility] INFLUENZA B NEGATIVE NEGATIVE 08/20/2017 6:01 PM CDT [facility] Comment: Interpretation: Negative for Influenza A [...] a separate order. NASAL STRUCTURE / Unknown 08/20/2017 5:24 PM CDT us Tylor Brewer MD MICROBIOLOGY - GENERAL ORD ERABLES Final Result [facility] [address] [place] [address], * CTA CHEST (08/20/2017 4:59 PM CDT) Anatomical Region Laterality Modality Chest Computed Tomogra phy 08/20/2017 5:30 PM CDT Impressions 08/20/2017 5:34 PM CDT IMPRESSION: 1. ??No evidence of acute pulmonary embolism. No acute findings. Narrative 08/20/2017 5:34 PM CDT EXAMINATION: CTA CHEST WITH CONTRAST EXAM DATE/TIME: 08/20/2017 3:57 PM REASON FOR EXAM: ??Shortness of breath ?? COMPARISON: None TECHNIQUE: Computed tomography angiography was performed of the chest after administration of intravenous contrast, 100 mL Isovue-370, according to routine protocol. Additional 3-D reconstructions and postprocessing were performed independently by the attending radiologist and a separate dedicated 3-D workstation.Automated exposure control was utilized to reduce radiation dose. FINDINGS: VASCULAR FINDINGS: Adequate opacification of the pulmonary arteries. No evidence of acute pulmonary embolism. NONVASCULAR FINDINGS: On lung windows, no suspicious pulmonary lesion, pneumothorax, or pleural effusion. On soft tissue windows, no axillary or supraclavicular lymphadenopathy. On mediastinal windows, no evidence of hilar or mediastinal lymphadenopathy. Heart size normal. No pericardial effusion. Limited evaluation of the upper abdomen demonstrates no acute abnormality. Prior cholecystectomy. On bone windows, no suspicious skeletal lesion or acute compression fracture deformity. Procedure Note Richard Treviño MD - 08/20/2017 EXAMINATION: CTA CHEST WITH CONTRAST EXAM DATE/TIME: 08/20/2017 3:57 PM REASON FOR EXAM: Shortness of breath COMPARISON: None TECHNIQUE: Computed tomography angiography was performed of the chestafter administration of intravenous contrast, 100 mL Isovue-370, according to routine protocol. Additional 3-D reconstructions and postprocessing were performed independently by the attending radiologist and a separate dedicated 3-D workstation.Automated exposure control was utilized toreduce radiation dose. FINDINGS: VASCULAR FINDINGS: Adequate opacification of the pulmonary arteries. No evidence of acute pulmonary embolism. NONVASCULAR FINDINGS: On lung windows, no suspicious pulmonary lesion, pneumothorax, orpleural effusion. On soft tissue windows, no axillary or supraclavicular lymphadenopathy. On mediastinal windows, no evidence of hilar or mediastinal lymphadenopathy. Heart size normal. No pericardial effusion. Limited evaluation of the upper abdomen demonstrates no acuteabnormality. Prior cholecystectomy. On bone windows, no suspicious skeletal lesion or acute compression fracture deformity. IMPRESSION: 1. No evidence of acute pulmonary embolism. No acute findings. us Tylor Brewer MD CT Final Resu lt * CT HEAD WO CON (08/20/2017 4:59 PM CDT) Anatomical Region Laterality Modality Head Computed Tomogra phy 08/20/2017 5:17 PM CDT Impressions 08/20/2017 5:20 PM CDT =====IMPRESSION:===== No evidence of acute intracranial hemorrhage, mass effect, or midline shift. ??CT is insensitive for the detection of acute ischemia. Extensive diffuse sinus opacification. Correlation for signs of acute sinusitis recommended. Narrative 08/20/2017 5:20 PM CDT EXAMINATION: ??CT OF THE HEAD WITHOUT CONTRAST EXAM DATE/TIME: 08/20/2017 3:57 PM REASON FOR EXAM: ??near syncope ? COMPARISON: None TECHNIQUE: Noncontrast CT examination of the head was performed with axial images obtained. ??Automated exposure control was utilized to reduce radiation dose. FINDINGS: No evidence of scalp hematoma or significant soft tissue swelling. Limited evaluation of the paranasal sinuses and mastoids demonstrates severe opacification of the ethmoid air cells, sphenoid sinuses, maxillary sinuses, frontal sinuses bilaterally. Intracranially, no evidence of hemorrhage, mass effect, or midline shift. CSF spaces are within normal limits. Posterior cranial fossa are unremarkable. Procedure Note Richard Treviño MD - 08/20/2017 EXAMINATION: CT OF THE HEAD WITHOUT CONTRAST EXAM DATE/TIME: 08/20/2017 3:57 PM REASON FOR EXAM: near syncope COMPARISON: None TECHNIQUE: Noncontrast CT examination of the head was performed withaxial images obtained. Automated exposure control was utilized to reduce radiation dose. FINDINGS: No evidence of scalp hematoma or significant soft tissue swelling. Limited evaluation of the paranasal sinuses and mastoids demonstrates severe opacification of the ethmoid air cells, sphenoid sinuses,maxillary sinuses, frontal sinuses bilaterally. Intracranially, no evidence of hemorrhage, mass effect, or midlineshift. CSF spaces are within normal limits. Posterior cranial fossa are unremarkable. =====IMPRESSION:===== No evidence of acute intracranial hemorrhage, mass effect, or midline shift. CT is insensitive for the detection of acute ischemia. Extensive diffuse sinus opacification. Correlation for signs of acute sinusitis recommended. us Tylor Brewer MD CT Final Resu lt * ECG 12 lead (08/20/2017 2:44 PM CDT) 08/20/2017 2:44 PM CDT Narrative [facility] - 08/20/2017 2:44 PM CDT ?[facility] ? [address], [place] ? Test Date: ?2017-08-20 Pat Name: ? MOHSEN MARQUES ?Department: ?? 41 ? Room: ? INPRINPR Gender: ? Female ? 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 RG : ?[id number] ? Requested By: BRIA SIMI Order Number: [id number] ? [place] MD: ?? Bubba Moralesruluz elena ? Measurements Intervals ?[place] ? Rate: ? 84 ? P: ?32 NH: ? 132 ?QRS: ?6 QRSD: ? 79 ? T: ?31 QT: ? 339 ? QTc: ?402 ? 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: JENNIFER : [id number] Requested By: BRIA BELCHER Order Number: [id number] [place] MD: Bubba Dumont Measurements Intervals [place] Rate: 84 P: 32 NH: 132 QRS: 6 QRSD: 79 T: 31 QT: 339 QTc: 402 Interpretive Statements SINUS RHYTHM NONSPECIFIC T-WAVE ABNORMALITY Compared to ECG 03/23/2017 02:31:10 No significant change No ischemic changes CRITICAL ALERT ISSUED ON 08-20-2017 13:19:37 us Bria Belcher JAVASCRIPT UI DEVELOPER-BC ECG ORDERABLES Final Res ult [facility] * XR CHEST PA+LAT (08/20/2017 2:19 PM CDT) Anatomical Region Laterality Modality Chest Radiographic Lizeth ging 08/20/2017 2:09 PM CDT Impressions 08/20/2017 2:10 PM CDT =====IMPRESSION:===== No acute findings. Narrative 08/20/2017 2:10 PM CDT EXAMINATION: PA AND LATERAL CHEST Exam date/time: 08/20/2017 1:09 PM Reason For Exam: ??Shortness of breath ?? Comparison: 11/01/2016 Technique: 2 views. Findings: ??Heart size normal. Proximal airways unremarkable. No suspicious pulmonary lesion, pneumothorax, or pleural effusion. Procedure Note Richard Treviño MD - 08/20/2017 EXAMINATION: PA AND LATERAL CHEST Exam date/time: 08/20/2017 1:09 PM Reason For Exam: Shortness of breath Comparison: 11/01/2016 Technique: 2 views. Findings: Heart size normal. Proximal airways unremarkable. Nosuspicious pulmonary lesion, pneumothorax, or pleural effusion. =====IMPRESSION:===== No acute findings. Bria Belcher JAVASCRIPT UI DEVELOPER-BC GENERAL IMAGING Final Res ult * THYROXINE, FREE (FT4) (08/20/2017 1:32 PM CDT) Pathologist [facility] FREE T4 1.01 0.76 - 1.46 NG/DL 08/20/2017 6:05 PM CDT [facility] 08/20/2017 1:32 PM CDT us Tylor Brewer MD LABORATORY Final Resu lt [facility] [address] [place] [address], [place] [phone] * BNP (08/20/2017 1:32 PM CDT) Pathologist [facility] B TYPE NATRIURETIC PEPTIDE 13 <100 PG/ML 08/20/2017 6:00 PM CDT [facility] 08/20/2017 1:32 PM CDT Tylor Brewer MD LABORATORY Final Resu lt Performing Organization Address [facility] Co de Phone Number [facility] [address] [place] [address], [place] [phone] * D-DIMER, QUANTITATIVE (08/20/2017 1:32 PM CDT) D-DIMER <150 0 - 230 D DU ng/mL 08/20/2017 2:48 PM CDT [facility] Comment: TESTING PERFORMED ON VA ACL TOP 300 ANALYZER. NOTE: RESULTS OF [...] SEVERE SKIN INFECTIONS, LIVER CIRRHOSIS OR . 08/20/2017 1:32 PM CDT 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 Final Res ult Performing Organization Address [facility] Co de Phone Number [facility] [address] [place] [address], [place] [phone] * PARTIAL THROMBOPLASTIN TIME,PTT (08/20/2017 1:32 PM CDT) Pathologist [facility] PTT 34.3 25.5 - 37.6 SEC 08/20/2017 2:48 PM CDT [facility] 08/20/2017 1:32 PM CDT [facility] Kathy Blecher [facility] LABORATORY Final Res ult [facility] [address] [place] [address], * (ABNORMAL) PROTIME/INR, VENOUS (08/20/2017 1:32 PM CDT) PROTIME 13.9(H) 9.6 - 12.2 SEC 08/20/2017 2:48 PM CDT [facility] INR 1.3 08/20/2017 2:48 PM CDT [facility] Comment: Recommended INR Therapeutic Goals: ??2.0-3.0 Routine Therapy ??2.5-3.5 Mechanical Prosthetic Valves (High Risk) ??3.0-4.0 Acute NM (to prevent Systemic Embolism) The INR is used only for patients on stable oral anticoagulant therapy. It makes no significant contribution to the diagnosis or treatment of patients whose Protime is prolonged for other reasons. 08/20/2017 1:32 PM CDT [facility] Kathy Belcher [facility] LABORATORY Final Res ult Performing Organization Address [facility] Co de Phone Number [facility] [address] [place] [address], [place] [phone] * CKMB(MB FRACTION ONLY) (08/20/2017 1:32 PM CDT) CK-MB 2.7 0.5 - 3.6 NG/ML 08/20/2017 2:09 PM CDT [facility] Comment: HIGH DOSES OF BIOTIN MAY INTERFERE WITH THIS TEST RESULT. CORRELATION TO CLINICAL HISTORY AND PRESENTATION RECOMMENDED. 08/20/2017 1:32 PM CDT [facility] Final Res ult Performing Organization Address City/[facility]/ZIP Co de Phone Number [facility] [address] [place] [address], [place] [phone] * MAGNESIUM (08/20/2017 1:32 PM CDT) MAGNESIUM 2.0 1.8 - 2.4 MG/DL 08/20/2017 2:09 PM CDT [facility] 08/20/2017 1:32 PM CDT [facility] LABORATORY Final Res ult Performing Organization Address [facility] Co de Phone Number [facility] [address] [place] [address], [place] [phone] * CK (CPK) (08/20/2017 1:32 PM CDT) CPK 60 21 - 215 U/L 08/20/2017 2:09 PM CDT [facility] 08/20/2017 1:32 PM CDT [facility] LABORATORY Final Res ult Performing Organization Address City/[facility]/ZIP Co de Phone Number [facility] [address] [place] [address], [place] [phone] * TROPONIN, QUANT (08/20/2017 1:32 PM CDT) TROPONIN I <0.015 <0.045 ng/mL. 08/20/2017 2:09 PM CDT [facility] Comment: HIGH DOSES OF BIOTIN MAY INTERFERE WITH THIS TEST RESULT. CORRELATION TO CLINICAL HISTORY AND PRESENTATION RECOMMENDED. 08/20/2017 1:32 PM CDT us 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 Final Res ult [facility] [address] [place] [address], [place] [phone] * (ABNORMAL) COMPREHENSIVE METABOLIC PANEL (08/20/2017 1:32 PM CDT) [facility] GLUCOSE 242(H) 70 - 99 MG/DL 08/20/2017 2:09 PM CDT [facility] BUN 17 7 - 18 MG/DL 08/20/2017 2:09 PM CDT [facility] CREATININE S/P/B 0.77 0.55 - 1.02 MG/DL 08/20/2017 2:09 PM CDT [facility] SODIUM S/P/B 140 136 - 145 MMOL/L 08/20/2017 2:09 PM CDT [facility] POTASSIUM S/P/B 3.8 3.5 - 5.1 MMOL/L 08/20/2017 2:09 PM CDT [facility] CHLORIDE S/P/B 107 100 - 108 MMOL/L 08/20/2017 2:09 PM CDT [facility] CO2 25.9 21 - 32 MMOL/L 08/20/2017 2:09 PM CDT [facility] CALCIUM S/P/B 9.3 8.5 - 10.1 MG/DL 08/20/2017 2:09 PM CDT [facility] BILIRUBIN TOTAL S/P/B 0.5 0.2 - 1.2 MG/DL 08/20/2017 2:09 PM CDT [facility] TOTAL PROTEIN S/P/B 8.3(H) 6.4 - 8.2 G/DL 08/20/2017 2:09 PM CDT [facility] ALBUMIN S/P/B 3.1(L) 3.4 - 5.0 G/DL 08/20/2017 2:09 PM CDT [facility] AST 10(L) 15 - 37 U/L 08/20/2017 2:09 PM CDT [facility] ALT 22 14 - 55 U/L 08/20/2017 2:09 PM CDT [facility] ALKALINE PHOSPHATASE S/P/B 85 50 - 136 U/L 08/20/2017 2:09 PM CDT [facility] ANION GAP 10.9 8 - 20 MMOL/L 08/20/2017 2:09 PM CDT [facility] BUN CREATININE RATIO 22.0 6 - 26 08/20/2017 2:09 PM CDT [facility] A/G RATIO 0.6(L) 1.0 - 2.0 RATIO 08/20/2017 2:09 PM CDT [facility] EGFR NON-AFR. AMER. 83(L) >90 ML/MIN/1.7 3 M2 08/20/2017 2:09 PM CDT [facility] EGFR AFR. AMER. >90 >90 ML/MIN/1.7 3 M2 08/20/2017 2:09 PM T [facility] Comment: NOTE: eGFR is not calculated for patients <18 years of age. This is an estimated GFR (CKD EPI) and should not be used for calculating drug doses. 08/20/2017 1:32 PM CDT Bria Belcher [facility]- LABORATORY Final Res ult [facility] [address] [place] [address], [place] [phone] * (ABNORMAL) CBC W/DIFF AUTOMATED (08/20/2017 1:32 PM CDT) WBC 14.1(H) 4.8 - 10.8 x10'3/uL 08/20/2017 1:42 PM CDT [facility] RBC 4.39 4.20 - 5.40 x10'6/uL 08/20/2017 1:42 PM CDT [facility] HGB 11.8(L) 12.0 - 16.0 G/DL 08/20/2017 1:42 PM CDT [facility] HCT 37.8(L) 38.0 - 48.0 % 08/20/2017 1:42 PM CDT [facility] MCV 86.1 81.0 - 99.0 FL 08/20/2017 1:42 PM CDT [facility] MCH 26.9(L) 27.0 - 31.0 PG 08/20/2017 1:42 PM CDT [facility] MCHC 31.2(L) 32.0 - 36.0 G/DL 08/20/2017 1:42 PM CDT [facility] RDW 15.2(H) 11.5 - 14.5 % 08/20/2017 1:42 PM CDT [facility] PLT 375 130 - 400 x10'3/uL 08/20/2017 1:42 PM CDT [facility] MPV 9.4 9.3 - 12.2 FL 08/20/2017 1:42 PM CDT [facility] NEUTROPHILS % 71.9(H) 43.0 - 65.0 % 08/20/2017 1:42 PM CDT [facility] LYMPHOCYTES % 18.5(L) 20.0 - 46.0 % 08/20/2017 1:42 PM CDT [facility] MONOCYTES % 6.8 5.0 - 12.0 % 08/20/2017 1:42 PM CDT [facility] EOSINOPHILS 1.9 1.0 - 3.0 % 08/20/2017 1:42 PM CDT [facility] BASOPHILS 0.3 0.0 - 1.0 % 08/20/2017 1:42 PM CDT [facility] IMMATURE GRANS % 0.6 0.0 - 1.0 % 08/20/2017 1:42 PM CDT [facility] 08/20/2017 1:32 PM CDT 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 Final Res ult [facility] [address] [place] [address], documented in this encounter Visit Diagnoses Diagnosis Bronchitis- Primary Bronchitis, not specified as acute or chronic Chest pain, unspecified type Nonintractable headache, unspecified chronicity pattern, unspecified headache type Weakness Other malaise and fatigue Other fatigue Abnormal CT scan, sinus Nonspecific (abnormal) findings on radiological and other examination of skull and head Hypertension Unspecified essential hypertension Morbid obesity with BMI of 50.0-59.9, adult ([facility]) Morbid obesity Sepsis ([facility]) Type 2 diabetes mellitus ([facility]) Type II or unspecified type diabetes mellitus without mention of complication, not stated as uncontrolled LUL (obstructive sleep apnea) Obstructive sleep apnea (adult) (pediatric) RLS (restless legs syndrome) Restless legs syndrome (RLS) History of DVT (deep vein thrombosis) Personal history of venous thrombosis and embolism documented in this encounter Administered Medications Inactive Administered Medications - up to 3 most recent administrations Medication Order MAR Action Action Date Dose Rate Site acetaminophen (TYLENOL) tablet 650 mg 650 mg, Oral, Every 4 hours PRN, Mild pain (Scale 1 - 3), Starting on 08/20/17 at 1959, Until Tu08/22/17 at 1717, Maximum dose of acetaminophen is 4000 mg from all sources in 24 hours. acetaminophen-codeine (TYLENOL #3) 300-30 MG tablet 1 tablet 1 tablet, Oral, Every 4 hours PRN, Moderate pain (Scale 4 - 7), Starting on Mon08/20/17 at 2120, Until Mon08/22/17 at 1717, Maximum dose of acetaminophen is 4000 mg from all sources in 24 hours. Given 08/21/2017 11:23 PM CDT 1 tablet Given 08/21/2017 6:23 PM CDT 1 tablet Given 08/20/2017 10:02 PM CDT 1 tablet albuterol (PROVENTIL) nebulizer solution 5 mg 5 mg, Nebulization, Every 6 hours PRN, Shortness of breath, Starting on Mon08/20/17 at 2257, Until Mon08/22/17 at 1717 benzonatate (TESSALON) capsule 200 mg 200 mg, Oral, 3 times daily PRN, Cough, Starting on Mon08/20/17 at 2045, Until Mon08/22/17 at 1717 diphenhydrAMINE (BENADRYL) injection 25 mg 25 mg, Intravenous, Once, 1 dose, On Mon08/20/17 at 1815, For IV administration, give no faster than 25 mg/min. Given 08/20/2017 6:15 PM CDT 25 mg guaifenesin (ROBITUSSIN) 100 MG/5ML solution 200 mg 200 mg, Oral, Every 4 hours PRN, Congestion, Starting on Mon08/20/17 at 2044, Until Mon08/22/17 at 1717 Given 08/22/2017 10:23 AM CDT 200 mg guaifenesin 12 hr (MUCINEX) tablet 1,200 mg 1,200 mg, Oral, 2 times daily, First dose (after last modification) on Mon08/21/17 at 0900, Until Discontinued Given 08/22/2017 8:18 AM CDT 1,200 mg Given 08/21/2017 10:12 PM CDT 1,200 mg Given 08/21/2017 8:40 AM CDT 1,200 mg guaifenesin 12 hr (MUCINEX) tablet 600 mg 600 mg, Oral, 2 times daily, First dose on Mon08/20/17 at 2115, Until Discontinued Given 08/20/2017 10:01 PM CDT 600 mg hydrocodone-acetaminophen (NORCO) 5-325 MG tablet 1 tablet 1 tablet, Oral, Once, 1 dose, On Mon08/21/17 at 0200, Maximum dose of acetaminophen is 4000 mg from all sources in 24 hours. Given 08/21/2017 1:50 AM CDT 1 tablet hydrocodone-acetaminophen (NORCO) 5-325 MG tablet 1 tablet 1 tablet, Oral, Once, 1 dose, On Mon08/21/17 at 0915, Maximum dose of acetaminophen is 4000 mg from all sources in 24 hours. Given 08/21/2017 9:26 AM CDT 1 tablet insulin lispro (HUMALOG) injection 0-6 Units 0-6 Units, Subcutaneous, 3 times daily before meals, First dose on 08/20/17 at 2030, Until Discontinued, Blood Glucose (USUAL Dosing): [Less than 70:? Initiate Hypoglycemia Standing Orders] [71-140: ? 0 units] [141-180:? 1 units] [181-220:? 2 units] [221-260:? 3 units] [261-300:? 4 units] [301-350:? 5 units] [351-400:? 6 units] [Greater than 400:? 6 units and Call Physician] Given 08/22/2017 11:52 AM CDT 5 Unit s Given 08/22/2017 8:19 AM CDT 3 Units Given 08/21/2017 5:04 PM CDT 3 Units insulin lispro (HUMALOG) injection 0-6 Units 0-6 Units, Subcutaneous, Nightly at bedtime, First dose on 08/20/17 at 2100, Until Discontinued, Blood Glucose (USUAL Dosing): [Less than 70:? Initiate Hypoglycemia Standing Orders] [71-180:? 0 units] [181-220:? 1 units] [221-260:? 2 units] [261-300:? 3 units] [301-350:? 4 units] [351-400:? 5 units] [Greater than 400:? 6 units and Call Physician] Given 08/21/2017 10:23 PM CDT 4 Units iopamidol (ISOVUE-370) 76 % injection 100 mL 100 mL, Intravenous, IMG once as needed, Contrast, 1 dose, Starting on Mon08/20/17 at 1659, Until Mon08/20/17 at 1700 Given 08/20/2017 5:00 PM CDT 100 mLs ipratropium-albuterol (DUONEB) 0.5-2.5 (3) MG/3ML nebulizer solution 3 mL 3 mL, Nebulization, Once, 1 dose, On Mon08/20/17 at 1600 Given 08/20/2017 3:57 PM CDT 3 mLs ipratropium-albuterol (DUONEB) 0.5-2.5 (3) MG/3ML nebulizer solution 3 mL 3 mL, Nebulization, Every 6 hours while awake, First dose on Mon08/21/17 at 0700, Until Discontinued Given 08/22/2017 7:53 AM CDT 3 mLs Given 08/21/2017 8:20 PM CDT 3 mLs Given 08/21/2017 4:17 PM CDT 3 mLs levofloxacin (LEVAQUIN) IVPB 750 mg 750 mg, Intravenous, at 100 mL/hr, Once, 1 dose, On Mon08/20/17 at 1845 New Bag 08/20/2017 8:09 PM CDT 750 mg 100 mL/hr levofloxacin (LEVAQUIN) tablet 750 mg 750 mg, Oral, Nightly at bedtime, First dose on Mon08/21/17 at 2100, Until Discontinued Given 08/21/2017 10:13 PM CDT 750 mg lisinopril (PRINIVIL,ZESTRIL) tablet 10 mg 10 mg, Oral, Daily, First dose on Mon08/21/17 at 0900, Until Discontinued, HOLD if SBP<100 Given 08/22/2017 8:18 AM CDT 10 mg Given 08/21/2017 8:40 AM CDT 10 mg lorazepam (ATIVAN) injection 0.5 mg 0.5 mg, Intravenous, Once, 1 dose, On Mon08/20/17 at 1600, For IV use, further dilute with an equal volume of saline. Given 08/20/2017 4:37 PM CDT 0.5 mg ondansetron (ZOFRAN) injection 4 mg 4 mg, Intravenous, Every 6 hours PRN, Nausea, Vomiting, Starting on Mon08/20/17 at 1959, Until Mon08/22/17 at 1717 oxybutynin ER (DITROPAN-XL) 24 hr tablet 5 mg 5 mg, Oral, Nightly at bedtime, First dose on Mon08/20/17 at 2100, Until Discontinued Given 08/21/2017 10:12 PM CDT 5 mg Given 08/20/2017 10:01 PM CDT 5 mg polyethylene glycol (GLYCOLAX) packet 17 g 17 g, Oral, Daily as needed, Constipation, Starting on Mon08/20/17 at 1959, Until Mon08/22/17 at 1717 predniSONE (DELTASONE) tablet 40 mg 40 mg, Oral, Daily, First dose on Mon08/21/17 at 0900, Until Discontinued Given 08/21/2017 8:39 AM CDT 40 mg predniSONE (DELTASONE) tablet 40 mg 40 mg, Oral, Daily, First dose (after last modification) on Mon08/22/17 at 0900, Until Discontinued Given 08/22/2017 8:18 AM CDT 40 mg rivaroxaban (XARELTO) tablet 20 mg 20 mg, Oral, Every evening, First dose on Mon08/20/17 at 2100, Until Discontinued Given 08/21/2017 10:13 PM CDT 20 mg Given 08/20/2017 10:01 PM CDT 20 mg ropinirole (REQUIP) tablet 5 mg 5 mg, Oral, Nightly at bedtime, First dose on Mon08/20/17 at 2100, Until Discontinued Given 08/21/2017 10:12 PM CDT 5 m g Given 08/20/2017 10:00 PM CDT 5 mg Senna (SENOKOT) 8.6 MG tablet 8.6 mg 8.6 mg, Oral, Daily as needed, Constipation, Starting on Mon08/20/17 at 1959, Until Mon08/22/17 at 1717 sodium chloride (OCEAN) 0.65 % nasal spray 1 spray 1 spray, Each Nostril, As needed, Other, Starting on Mon08/21/17 at 0239, Until Mon08/22/17 at 171 sodium chloride 0.9% bolus infusion SOLN 1,000 mL 1,000 mL, Intravenous, Administer over 15 Minutes, Bolus (Once), 1 dose, On 4/29/18 at 1600 New Bag 08/20/2017 4:36 PM CDT 1,000 mLs documented in this encounter Active and Recently Administered Medications Times are shown in CDT. Scheduled Medication Order 08/20/2017 08/21/2017 08/22/2017 diphenhydrAMINE (BENADRYL) injection 25 mg (COMPLETED) 25 mg, Intravenous, Once, 1 dose, On 08/20/17 at 1815, For IV administration, give no faster than 25 mg/min. 1815 (Given - Provider: Alicia Goel RN) exemestane (AROMASIN) tablet 25 mg 25 mg, Oral, Daily, First dose on Mon08/22/17 at 0900, Until Discontinued, Administration by approved chemotherapy RN only.Give after a meal. 36 (Not Given - Provider: Maria Guadalupe Poole RN - Reason: Medication not available) guaifenesin 12 hr (MUCINEX) tablet 1,200 mg 1,200 mg, Oral, 2 times daily, First dose (after last modification) on Mon08/21/17 at 0900, Until Discontinued 08 (Given - Provider: Maria Guadalupe Poole RN)2211 (Given - Provider: Claudia Morrison RN) 08 (Given - Provider: Maria Guadalupe Poole RN) guaifenesin 12 hr (MUCINEX) tablet 600 mg (CANCELED) 600 mg, Oral, 2 times daily, First dose on 08/20/17 at 2115, Until Discontinued 2200 (Given - Provider: Claudia Morrison RN) hydrocodone-acetaminophe n (NORCO) 5-325 MG tablet 1 tablet (COMPLETED) 1 tablet, Oral, Once, 1 dose, On Mon08/21/17 at 0200, Maximum dose of acetaminophen is 4000 mg from all sources in 24 hours. 0150 (Given - Provider: Claudia Morrison RN - Comment: pain rated 6 in head) hydrocodone-acetaminophe n (NORCO) 5-325 MG tablet 1 tablet (COMPLETED) 1 tablet, Oral, Once, 1 dose, On Mon08/21/17 at 0915, Maximum dose of acetaminophen is 4000 mg from all sources in 24 hours. 0926 (Given - Provider: Maria Guadalupe Poole RN - Comment: pain 7/10) insulin lispro (HUMALOG) injection 0-6 Units(Linked Group 1) 0-6 Units, Subcutaneous, 3 times daily before meals, First dose on 08/20/17 at 2030, Until Discontinued, Blood Glucose (USUAL Dosing): [Less than 70:? Initiate Hypoglycemia Standing Orders] [71-140: ? 0 units] [141-180:? 1 units] [181-220:? 2 units] [221-260:? 3 units] [261-300:? 4 units] [301-350:? 5 units] [351-400:? 6 units] [Greater than 400:? 6 units and Call Physician] 2113 (Not Given - Provider: Claudia Morrison RN - Reason: Other) 0840 (Given - Provider: Maria Guadalupe Poole RN)1149 (Given - Provider: Maria Guadalupe Poole RN)1704 (Given - Provider: Maria Guadalupe Poole RN) 0819 (Given - Provider: Maria Guadalupe Poole RN)1152 (Given - Provider: Maria Guadalupe Poole RN) insulin lispro (HUMALOG) injection 0-6 Units(Linked Group 1) 0-6 Units, Subcutaneous, Nightly at bedtime, First dose on 08/20/17 at 2100, Until Discontinued, Blood Glucose (USUAL Dosing): [Less than 70:? Initiate Hypoglycemia Standing Orders] [71-180:? 0 units] [181-220:? 1 units] [221-260:? 2 units] [261-300:? 3 units] [301-350:? 4 units] [351-400:? 5 units] [Greater than 400:? 6 units and Call Physician] 2113 (Not Given - Provider: Claudia Morrison RN - Reason: Order parameters not met) 2222 (Given - Provider: Claudia Morrison RN - Comment: 334) ipratropium-albuterol (DUONEB) 0.5-2.5 (3) MG/3ML nebulizer solution 3 mL (COMPLETED) 3 mL, Nebulization, Once, 1 dose, On 08/20/17 at 1600 1557 (Given - Provider: Bubba Chavira, RT) ipratropium-albuterol (DUONEB) 0.5-2.5 (3) MG/3ML nebulizer solution 3 mL 3 mL, Nebulization, Every 6 hours while awake, First dose on Mon08/21/17 at 0700, Until Discontinued 0808 (Given - Provider: Veronica Rivera, RT)1617 (Given - Provider: Jimmie Tejeda, RT)2020 (Given - Provider: Jamia Andres, RT) 0753 (Given - Provider: Marj Segura, RT)1500 (Canceled Entry - Provider: Automatic Discharge Provider - Comment: Automatically canceled at discontinue of medication order) levofloxacin (LEVAQUIN) IVPB 750 mg (COMPLETED) 750 mg, Intravenous, at 100 mL/hr, Once, 1 dose, On Mon08/20/17 at 1845 2008 (New Bag - Provider: Fernando Lind RN - Comment: day shift did not hang)214 (Infusion Stop Time - Provider: Claudia Morrison RN) levofloxacin (LEVAQUIN) tablet 750 mg 750 mg, Oral, Nightly at bedtime, First dose on Mon08/21/17 at 2100, Until Discontinued 221 (Given - Provider: Claudia Morrison RN) lisinopril (PRINIVIL,ZESTRIL) tablet 10 mg 10 mg, Oral, Daily, First dose on Mon08/21/17 at 0900, Until Discontinued, HOLD if SBP<100 0840 (Given - Provider: Maria Guadalupe Poole RN) 0818 (Given - Provider: Maria Guadalupe Poole RN) lorazepam (ATIVAN) injection 0.5 mg (COMPLETED) 0.5 mg, Intravenous, Once, 1 dose, On Mon08/20/17 at 1600, For IV use, further dilute with an equal volume of saline. 1637 (Given - Provider: Alicia Goel RN) oxybutynin ER (DITROPAN-XL) 24 hr tablet 5 mg 5 mg, Oral, Nightly at bedtime, First dose on Mon08/20/17 at 2100, Until Discontinued 220 (Given - Provider: Claudia Morrison RN) 221 (Given - Provider: Claudia Morrison RN) predniSONE (DELTASONE) tablet 40 mg (CANCELED) 40 mg, Oral, Daily, First dose on Mon08/21/17 at 0900, Until Discontinued 08 (Given - Provider: Maria Guadalupe Poole RN) predniSONE (DELTASONE) tablet 40 mg 40 mg, Oral, Daily, First dose (after last modification) on Mon08/22/17 at 0900, Until Discontinued 817 (Given - Provider: Maria Guadalupe Poole RN) rivaroxaban (XARELTO) tablet 20 mg 20 mg, Oral, Every evening, First dose on Mon08/20/17 at 2100, Until Discontinued 2200 (Given - Provider: Claudia Morrison RN) 2212 (Given - Provider: Claudia Morrison RN) ropinirole (REQUIP) tablet 5 mg 5 mg, Oral, Nightly at bedtime, First dose on Mon08/20/17 at 2100, Until Discontinued 2199 (Given - Provider: Claudia Morrison RN) 2211 (Given - Provider: Claudia Morrison RN) sodium chloride 0.9% bolus infusion SOLN 1,000 mL (COMPLETED) 1,000 mL, Intravenous, Administer over 15 Minutes, Bolus (Once), 1 dose, On Mon08/20/17 at 1600 1636 (New Bag - Provider: Alicia Goel RN)1755 (Infusion Stop Time - Provider: Alicia Goel RN) PRN Medication Order 08/20/2017 08/21/2017 08/22/2017 acetaminophen (TYLENOL) tablet 650 mg 650 mg, Oral, Every 4 hours PRN, Mild pain (Scale 1 - 3), Starting on Mon08/20/17 at 1959, Until Mon08/22/17 at 1717, Maximum dose of acetaminophen is 4000 mg from all sources in 24 hours. acetaminophen-codeine (TYLENOL #3) 300-30 MG tablet 1 tablet 1 tablet, Oral, Every 4 hours PRN, Moderate pain (Scale 4 - 7), Starting on 08/20/17 at 2120, Until Mon08/22/17 at 1717, Maximum dose of acetaminophen is 4000 mg from all sources in 24 hours. 2201 (Given - Provider: Claudia Morrison RN - Comment: pain rated 6 generalized) 1822 (Given - Provider: Maria Guadalupe Poole RN)2323 (Given - Provider: Della Tejada RN) albuterol (PROVENTIL) nebulizer solution 5 mg 5 mg, Nebulization, Every 6 hours PRN, Shortness of breath, Starting on Mon08/20/17 at 2257, Until Mon08/22/17 at 1717 benzonatate (TESSALON) capsule 200 mg 200 mg, Oral, 3 times daily PRN, Cough, Starting on Mon08/20/17 at 2045, Until Mon08/22/17 at 1717 guaifenesin (ROBITUSSIN) 100 MG/5ML solution 200 mg 200 mg, Oral, Every 4 hours PRN, Congestion, Starting on Mon08/20/17 at 2044, Until Mon08/22/17 at 171 1023 (Given - Provider: Maria Guadalupe Poole RN) iopamidol (ISOVUE-370) 76 % injection 100 mL (COMPLETED) 100 mL, Intravenous, IMG once as needed, Contrast, 1 dose, Starting on Mon08/20/17 at 1659, Until Mon08/20/17 at 1700 1700 (Given - Provider: Joan Garcia, RTR) ondansetron (ZOFRAN) injection 4 mg 4 mg, Intravenous, Every 6 hours PRN, Nausea, Vomiting, Starting on Mon08/20/17 at 1958, Until Mon08/22/17 at 1717 polyethylene glycol (GLYCOLAX) packet 17 g 17 g, Oral, Daily as needed, Constipation, Starting on Mon08/20/17 at 195, Until Mon08/22/17 at 1717 Senna (SENOKOT) 8.6 MG tablet 8.6 mg 8.6 mg, Oral, Daily as needed, Constipation, Starting on Mon08/20/17 at 195, Until Mon08/22/17 at 1717 sodium chloride (OCEAN) 0.65 % nasal spray 1 spray 1 spray, Each Nostril, As needed, Other, Starting on Mon08/21/17 at 0239, Until Mon08/22/17 at 1717 Linked Groups Order Group 1: insulin lispro (HUMALOG) injection 0-6 UnitsJump to med 0-6 Units, Subcutaneous, 3 times daily before meals, First dose on Mon08/20/17 at 2030, Until Discontinued, Blood Glucose (USUAL Dosing): [Less than 70:? Initiate Hypoglycemia Standing Orders] [71-140: ? 0 units] [141-180:? 1 units] [181-220:? 2 units] [221-260:? 3 units] [261-300:? 4 units] [301- 350:? 5 units] [351-400:? 6 units] [Greater than 400:? 6 units and Call Physician] And insulin lispro (HUMALOG) injection 0-6 UnitsJump to med 0-6 Units, Subcutaneous, Nightly at bedtime, First dose on 08/20/17 at 2100, Until Discontinued, Blood Glucose (USUAL Dosing): [Less than 70:? Initiate Hypoglycemia Standing Orders] [71-180:? 0 units] [181-220:? 1 units] [221-260:? 2 units] [261-300:? 3 units] [301-350:? 4 units] [351-400:? 5 units] [Greater than 400:? 6 units and Call Physician] documented in this encounter Additional Health Concerns Infection Onset Date Last Indicated Resolved Time MRSA Comment:mrsa nares pos. 02/201802/03/2017 02/03/2017 09/01/19 19 8:40 AM CDT documented as of this encounter Care Teams Search Director Relationship Specialty Start Date End Date Gerardo Hoffman MD [address] [place] [address] PCP - General FAMILY PRACTICE 08/20/17 Meena Bansal MD [address] [place] [address] [place] [employer] Analyst CARDIOVASCULAR DISEASE 04/24/16 documented as of this encounter
--- OUTSIDE RECORDS SUMMARY | 2024-04-26 02:42 | XMS_ITS | Encounter Summary ---
Author Organization [facility] Address [address] [place] [address]. [place] [address] [place] [address] Care Team Providers Care Plastics Seasoner Operator Name Role Phone Meena Bansal MD Unavailable [phone] Justen Gale MD Primary Care Provider [phone] Reason for Visit * Reason Comments Knee Pain Encounter Details Date Type Department Care Team (Late st Contact Info) Description 08/28/2017 9:15 PM CDT - 08/28/2017 11:09 PM CDT Emergency 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 documented as of this encounter Last Filed Vital Signs Vital Sign Reading Time Taken Comments Blood Pressure 124/71 08/28/2017 9:03 PM CDT Pulse 89 08/28/2017 9:03 PM CDT Temperature 36.3 ??C (97.4 ??F) 08/28/2017 9:03 PM CD T Respiratory Rate 18 08/28/2017 9:03 PM CDT Oxygen Saturation 97% 08/28/2017 9:57 PM CDT Inhaled Oxygen Concentration - - Weight 127 kg (279 lb 15.8 oz) 08/28/2017 9:03 P M CDT Height 154.9 cm (5' 1 ) 08/28/2017 9:03 PM CDT Body Mass Index 52.9 08/28/2017 9:03 PM CDT documented in this encounter Discharge Instructions * Discharge Instructions* Jimmie Navarro, DO - 08/28/2017 10:19 PM CDT Images from the original note were not included. Tylenol for pain. Use the Ultram only if truly needed. Follow-up with your doctor this week for continued care. Ask your doctor to review your knee x-ray report with you. Ask your doctor about further care at pain clinic. No driving tonight. Ask your doctor about possible referral to an orthopedic surgeon secondary to the osteoarthritis in your knee. For now you should continue taking your Xarelto secondary to your history of leg clot. Osteoarthritis Discharge Instructions About this topic Osteoarthritis is also called OA. It is swelling of the joints due to wearing down of the cartilage. The cartilage is the protective coating at the end of the bone. It helps the joints glide smoothlywith each other during movement. The cartilage most often wears down from years of use. OA is common among older people. It often affects the joints in the hands, feet, hips, and knees. There is no cure for this condition but the pain can be helped. Pain may be lowered by drugs, lifestyle changes, and joint fluid supplements. What care is needed at home? ?? Ask your doctor what you need to do when you go home. Make sure you ask questions if you do not understand what the doctor says. This way you will know what you need to do. ?? Take your drugs as ordered by the doctor. ?? Use heat or ice to help with pain. ?? Place an ice pack or a bag of frozen peas wrapped in a towel over the painful part. Never put ice right on the skin. Do not leave the ice on more than 10 to 15 minutes at a time. ?? If your doctor tells you to use heat, put a heating pad on your sore part for no more than 20 minutes at a time. Never go to sleep with a heating pad on as this can cause huffman. ?? You may need a cane, crutches, or a walker to help you move around safely. ?? Avoid doing tiring activities. Do not lift heavy things. ?? Avoid activities that may cause added pressure to your joints. ?? If you are overweight, try to lose weight. Try to exercise often. ?? Try other methods of relieving pain such as massage, relaxation, breathing exercise, yoga, and image and music therapy. What follow-up care is needed? ?? Your doctor may ask you to make visits to the office to check on your progress. Be sure to keep these visits. ?? Your doctor may send you to a physical therapist to help improve your motion, balance, and strength. What drugs may be needed? The doctor may order drugs to: ?? Help with pain and swelling The doctor may give you a shot of an anti-inflammatory drug called a corticosteroid. This will helpwith swelling. Talk to your doctor about the risks of this shot. Will physical activity be limited? Physical activities may be limited if you are in pain. Ask your doctor about the right amount of activity for you. What changes to diet are needed? If you are overweight, ask a leather stamper for a weight loss plan. Weight loss will lower the stress onyour joints. What problems could happen? ?? Not able to move around well ?? Low mood What can be done to prevent this health problem? There is no known way to prevent this condition. When do I need to call the doctor? ?? Not able to do normal daily activities ?? Not able to deal with the pain Helpful tips ?? Try to stay calm. Anxiety may make the pain worse. ?? Ask your doctor if acupuncture would help you manage your pain. Teach Back: Helping You Understand The Teach Back Method helps you understand the information we are giving you. The idea is simple. After talking with the staff, tell them in your own words what you were just told. This helps to makesure the staff has covered each thing clearly. It also helps to explain things that may have been abit confusing. Before going home, make sure you are able to do these: ?? I can tell you about my condition. ?? I can tell you what may help ease my pain. ?? I can tell you what I will do if my pain is very bad. Where can I learn more? [employer] http://orthoinfo.aaos.org/topic.cfm?akhuj=a66963 Arthritis Foundation http://www.arthritis.org/conditions-treatments/disease-center/osteoarthritis/ National [place] of Arthritis and Musculoskeletal and Skin Diseases http://www.niams.nih.gov/Health_Info/Osteoarthritis/osteoarthritis_ff.pdf National [place] of [facility] ? [employer] http://nihseniorhealth.gov/osteoarthritis/whatisosteoarthritis/01.html Last Reviewed Date 2014-11-07 Consumer Information Use and Disclaimer This information is not specific medical advice and does not replace information you receive from your health care provider. This is only a brief summary of general information. It does NOT include all information about conditions, illnesses, injuries, tests, procedures, treatments, therapies, discharge instructions or life-style choices that may apply to you. You must talk with your health care provider for complete information about your health and treatment options. This information should not be used to decide whether or not to accept your health care provider???s advice, instructions or recommendations. Only your health care provider has the knowledge and training to provide advice that is right for you. Copyright Copyright ?? 2018 [employer]. and its affiliates and/or licensors. All rights reserved. documented in this encounter Medications at Time [...] needed for Cough. 20 capsule 08/22/2017 8 lisinopril 10 MG tablet Take 1 tablet (10 mg total) by mouth daily for 30 days. 30 tablet 08/23/2017 8 ondansetron 4 MG disintegrating tablet Take 1 tablet (4 mg total) by mouth every 8 (eight) hours as needed for Nausea. 20 tablet 08/28/2017 8 polyethylene glycol powder Take 17 g by mouth daily as needed (CONSTIPATION) . 0 08/15/2017 9 PROVENTIL HFA 108 (90 Base) MCG/ACT inhaler Inhale 2 puffs into the lungs every 4 (four) hours as needed for Wheezing. 0 08/15/2017 8 SITagliptin-MetFORMI N HCl (JANUMET) 50-1000 MG Tab Take 1 tablet by mouth 2 (two) times daily with meals. 04/20/2017 8 traMADol 50 MG tablet Take 1 tablet (50 mg total) by mouth every 6 (six) hours as needed for Pain. Tylenol for pain, use the Ultram only if truly needed. Possible drowsiness. 20 tablet 08/28/2017 8 VIRTUSSIN A/C 100-10 MG/5ML syrup Take 5 mLs by mouth every 4 (four) hours as needed for Congestion. 0 08/13/2017 8 XARELTO 20 MG Tab tablet Take 20 mg by mouth every evening. 11 08/08/2017 9 documented as of this encounter ED Notes * Fernando Lind RN - 08/28/2017 11:08 PM CDT Verbal and written instructions provided to patient. Prescriptions given and medications discussed.Pt advised to follow up with doctor. Pt denies any further questions at this time and is wheeled out of ED by this RN. * Fernando Lind RN - 08/28/2017 9:58 PM CDT Pt to ED 11 via wheelchair with CO left leg pain that started about 4 days ago. PT notes the discomfort started in the lower leg and has now worked its way up to above the knee and in the thigh. PT states she can walk on it but it is painful. Pt denies any recent injury or trauma * Jimmie Navarro, DO - 08/28/2017 9:30 PM CDT HPI Comments: Chief complaint: Left leg pain History chief complaint: Complains of pain to the left leg primarily to the left anterior knee. She does have a history of DVT but is currently on Xarelto and has not missed any doses. Also has a history of bulging disc in the low back. Problem located left knee. Is like possible arthritis. No history of recent trauma. Hasoccurred before but it seems worse the last few days. Moderate severity. Cause undetermined. Movemen t makes it feel worse. Associated symptoms: No fever. [place] FOREST AIDE was noted. Patient's been to pain clinic in the past and was told there was nothing more that can be done and the patient should follow-up with her primary care for pain medication, patient relates her primary care doctor does not want to give her pain pills. Medical History ?? Past Medical History Date Comments ?? Breast cancer (C50.919) ?? Hypertension (I10) ?? Diabetes mellitus (E11.9) ?? Neuropathy (G62.9) ?? Restless leg syndrome (G25.81) ?? Blood clot in vein (I82.90) ?? Cancer (C80.1) ?? Arthritis (M19.90) ?? Kidney stones (N20.0) ?? Disease of thyroid gland (E07.9) ?? Surgical History ?? Past Surgical History Laterality Last Occurrence Comments ?? Mastectomy (SHX3) ?? section (TCP5880) ?? Total knee arthroplasty (TRJ231) ?? Hernia repair (SHX51) ?? Cholecystectomy (SHX55) ?? Family History ?? Problem Relation Age of Onset Comments ?? Aneurysm Mother ?? COPD Sister ?? Cancer Brother ?? Cancer Father ?? Cancer Sister ?? Depression Sister ?? Diabetes Mother ?? Heart Disease Mother ?? Hyperlipidemia Mother ?? Hypertension Mother ?? Stroke Mother ?? Social History ?? Category History ?? Smoking Tobacco Use Former Smoker; Start date: ; Quit date: 03/23/1977 ?? Smokeless Tobacco Use Never Used ?? Tobacco Comment ?? Alcohol Use No ?? Drug Use No ?? Sexual Activity No ?? ADL Not Asked ALLERGIES: Allergies Allergen Reactions ??? Cephalosporins Anaphylaxis ??? Rocephin [Ceftriaxone] Shortness of Breath ??? Oxycodone Vomiting ??? Reglan [Metoclopramide] Hyperactive MEDICATIONS: Prior to Admission medications Medication Sig Start Date End Date Taking? Authorizing Provider benzonatate 200 MG capsule Take 1 capsule (200 mg total) by mouth 3 (three) times daily as needed for Cough. 08/22/17 08/29/17 Lila Carlos APRN exemestane 25 MG tablet Take 1 tablet by mouth daily. Give after a meal. 08/09/17 Doc Abstract lisinopril 10 MG tablet Take 1 tablet (10 mg total) by mouth daily for 30 days. 08/23/17 09/22/17 Kalen Carlos APRN polyethylene glycol powder Take 17 g by mouth daily as needed (CONSTIPATION). 08/15/17 Doc Abstract PROVENTIL HFA 108 (90 Base) MCG/ACT inhaler Inhale 2 puffs into the lungs every 4 (four) hours as needed for Wheezing. 08/15/17 Doc Abstract ROPINIROLE HYDROCHLORIDE 5 MG Tab Take 5 mg by mouth nightly at bedtime. 07/14/17 Doc Abstract SITagliptin-MetFORMIN HCl (JANUMET) 50-1000 MG Tab Take 1 tablet by mouth 2 (two) times daily with meals. 04/20/17 Doc Abstract VIRTUSSIN A/C 100-10 MG/5ML syrup Take 5 mLs by mouth every 4 (four) hours as needed for Congestion. 08/13/17 Doc Abstract XARELTO 20 MG Tab tablet Take 20 mg by mouth every evening. 08/08/17 Doc Abstract Review of Systems Review of Systems Constitutional: Negative for appetite change, chills and fever. HENT: Negative for congestion, ear discharge, ear pain, facial swelling, sinus pain, sore throat and voice change. Eyes: Negative for photophobia, pain, discharge and visual disturbance. Respiratory: Negative for cough, chest tightness, shortness of breath and wheezing. Cardiovascular: Negative for chest pain and palpitations. Gastrointestinal: Negative for abdominal pain, blood in stool, diarrhea and nausea. Genitourinary: Negative for dysuria, frequency and hematuria. Musculoskeletal: Positive for arthralgias. Negative for neck pain and neck stiffness. Skin: Negative for rash. Neurological: Negative for dizziness, seizures, weakness and headaches. Hematological: Does not bruise/bleed easily. Psychiatric/Behavioral: Negative for behavioral problems and confusion. All other systems reviewed and are negative. Physical Exam Filed Vitals: 08/28/17 2103 08/28/17 2157 BP: 124/71 Pulse: 89 Resp: 18 Temp: 97.4 ??F (36.3 ??C) TempSrc: Tympanic SpO2: 98% 97% Weight: 127 kg (279 lb 15.8 oz) Height: 5' 1 (1.549 m) Physical Exam Constitutional: She is oriented to person, place, and time. She appears well- developed and well-nourished. HENT: Head: Normocephalic and atraumatic. Right Ear: External ear normal. Left Ear: External ear normal. Nose: Nose normal. Mouth/Throat: Oropharynx is clear and moist. Eyes: Conjunctivae and EOM are normal. Pupils are equal, round, and reactive to light. Neck: Normal range of motion. Neck supple. Cardiovascular: Normal rate and regular rhythm. Pulmonary/Chest: Effort normal and breath sounds normal. Abdominal: Soft. Bowel sounds are normal. There is no tenderness. Musculoskeletal: Normal range of motion. Left knee joint without swelling or redness/sign of infection. She has complained somewhat with flexion extension of the joint. Neurovascular status is strong down into the left foot. She does not particularly have any tenderness to the popliteal area or in the calf. Neurological: She is alert and oriented to person, place, and time. Skin: Skin is warm and dry. No rash noted. Psychiatric: She has a normal mood and affect. Thought content normal. Nursing note and vitals reviewed. Diagnostic studies: IMAGING STUDIES: Ct Head Wo Con Result Date: 08/20/2017 EXAMINATION: CT OF THE HEAD WITHOUT CONTRAST EXAM DATE/TIME: 08/20/2017 3:57 PM REASON FOR EXAM: near syncope COMPARISON: None TECHNIQUE: Noncontrast CT examination of the head was performed with axial images obtained. Automated exposure control was utilized to reduce radiation dose. FINDINGS: No evidence of scalp hematoma or significant soft tissue swelling. Limited evaluation of the paranasal sinuses and mastoids demonstrates severe opacification of the ethmoid air cells,sphenoid sinuses, maxillary sinuses, frontal sinuses bilaterally. Intracranially, no evidence of hemorrhage, mass effect, or midline shift. CSF spaces are within normal limits. Posterior cranial fossa are unremarkable. =====IMPRESSION:===== No evidence of acute intracranial hemorrhage, mass effect, or midline shift. CT is insensitive for the detection of acute ischemia. Extensive diffuse sinus opacification. Correlation for signs of acute sinusitis recommended. Cta Chest Result Date: 08/20/2017 EXAMINATION: CTA CHEST WITH CONTRAST EXAM DATE/TIME: 08/20/2017 3:57 PM REASONFOR EXAM: Shortness of breath COMPARISON: None TECHNIQUE: [...] effusion. Limited evaluation of the upper abdomen demonstratesno acute abnormality. Prior cholecystectomy. On bone windows, no suspicious skeletal lesion or acute compression fracture deformity. IMPRESSION: 1. No evidence of acute pulmonary embolism. No acute findings. Xr Chest Pa+lat Result Date: 08/20/2017 EXAMINATION: PA AND LATERAL CHEST Exam date/time: 08/20/2017 1:09 PM Reason For Exam: Shortness of breath Comparison: 11/01/2016 Technique: 2 views. Findings: Heart size normal. Proximal airways unremarkable. No suspicious pulmonary lesion, pneumothorax, or pleural effusion. =====IMPRESSION:===== No acute findings. Xr Knee Lt 2v Result Date: 08/28/2017 EXAMINATION: X-ray left knee, 3 views HISTORY: Diffuse left knee pain for the last 4 days. No trauma history. COMPARISON: None. TECHNIQUE: AP, oblique, and lateral views of the left knee. FINDINGS: No evidence of acute fracture or dislocation. Severe medial compartment joint space narrowing. Periarticular osteophyte formation. There is patellofemoral joint space narrowing and osteophyte formation. Small suprapatellar knee joint effusion. IMPRESSION: 1. No acute osseous abnormalities identified. 2. Medial compartment and patellofemoral osteoarthritis. Course / Medical Decision Making History and physical completed. Radiology studies noted. Findings and plan of care discussed with patient who voiced understanding. Critical CARE minutes: No Discharge condition: Fair Diagnosis: SNOMED CT(R) 1. Osteoarthritis of left knee OSTEOARTHRITIS OF LEFT KNEE JOINT Disposition: Discharged home. Jimmie Navarro DO 08/28/17 2319 documented in this encounter Plan of Treatment Not on file documented as of this encounter Procedures Procedure Name Priority Date/Time Associated Diagnosis Comments XR KNEE LT 2V STAT 08/28/2017 9:50 PM CDT documented in this encounter Results * XR KNEE LT 2V (08/28/2017 9:50 PM CDT) Anatomical Region Laterality Modality Knee Radiographic Lizeth ging 08/28/2017 9:58 PM CDT Impressions 08/28/2017 10:00 PM CDT IMPRESSION: 1. No acute osseous abnormalities identified. 2. Medial compartment and patellofemoral osteoarthritis. Narrative 08/28/2017 10:00 PM CDT EXAMINATION: X-ray left knee, 3 views HISTORY: Diffuse left knee pain for the last 4 days. No trauma history. COMPARISON: None. TECHNIQUE: AP, oblique, and lateral views of the left knee. FINDINGS: No evidence of acute fracture or dislocation. Severe medial compartment joint space narrowing. Periarticular osteophyte formation. There is patellofemoral joint space narrowing and osteophyte formation. Small suprapatellar knee joint effusion. Procedure Note Leo Trivedi DO - 08/28/2017 EXAMINATION: X-ray left knee, 3 views HISTORY: Diffuse left knee pain for the last 4 days. No trauma history. COMPARISON: None. TECHNIQUE: AP, oblique, and lateral views of the left knee. FINDINGS: No evidence of acute fracture or dislocation. Severe medial compartment joint space narrowing. Periarticular osteophyte formation. There is patellofemoral joint space narrowing and osteophyte formation. Small suprapatellar knee joint effusion. IMPRESSION: 1. No acute osseous abnormalities identified. 2. Medial compartment and patellofemoral osteoarthritis. Jimmie Navarro DO GENERAL IMAGING Final Result documented in this encounter Visit Diagnoses Diagnosis Osteoarthritis of left knee- Primary Osteoarthrosis, unspecified whether generalized or localized, lower leg documented in this encounter Administered Medications Inactive Administered Medications - up to 3 most recent administrations Medication Order MAR Action Action Date Dose Rate Site ketorolac (TORADOL) injection 60 mg 60 mg, Intramuscular, Once, 1 dose, On Mon08/28/17 at 2145, For IV administration, give over 15 seconds. Given 08/28/2017 10:00 PM CDT 60 mg Right Anterior Thigh documented in this encounter Active and Recently Administered Medications Times are shown in CDT. Scheduled Medication Order 08/26/2017 08/27/2017 08/28/2017 ketorolac (TORADOL) injection 60 mg (COMPLETED) 60 mg, Intramuscular, Once, 1 dose, On Mon08/28/17 at 2145, For IV administration, give over 15 seconds. 2200 (Given - Provid er: Fernando Lind RN) documented in this encounter Additional Health Concerns Infection Onset Date Last Indicated Resolved Time MRSA Comment:mrsa nares pos. 02/201802/03/2017 02/03/2017 09/01/19 19 8:40 AM CDT documented as of this encounter Care Teams Plastics Seasoner Operator Relationship Specialty Start Date End Date Justen Gale MD [address] [address] PCP - General FAMILY PRACTICE 08/20/17 Meena Bansal MD [facility]. [address] [address] [place] [employer] CARDIOVASCULAR DISEASE 04/24/16 documented as of this encounter
--- OUTSIDE RECORDS SUMMARY | 2024-04-26 02:42 | XMS_ITS | Encounter Summary ---
Author Organization [facility] Address [address] [place] [address]. [place] [address] [place] [address] Care Team Providers Care Barrer And Tacker Name Role Phone Lavonne Ram MD Primary Care Provider [phone] Meena Bansal MD Unavailable [phone] Encounter Details Date Type Department Care Team (Late st Contact Info) Description 12/01/2016 Emergency [facility] Emergency Room [place], [place] [id number] Jimmie Navarro, DO [address] [facility] [address] [place], [place] [id number] Social History Tobacco Use Types Packs/Day Years Used Date Smoking Tobacco: Never Assessed Comments Unknown Sex and Gender Information Value Date Recorded Sex Assigned at Female 09/06/2020 12:50 AM CDT Legal Sex Female 10:47 AM CDT Gender Identity Female 09/06/2020 12:50 AM CDT Sexual Orientation Straight 03/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 documented as of this encounter Plan of Treatment Not on file documented as of this encounter Procedures Procedure Name Priority Date/Time Associated Diagnosis Comments URINALYSIS WI REFLEX TO CULTURE STAT 12/01/2016 3:06 PM CDT TSH W/REFLEX STAT 12/01/2016 3:06 PM CDT URINE BACTERIA CULTURE Routine 7 3:06 PM CDT COMPREHENSIVE METABOLIC PANEL STAT 12/01/2016 3:06 PM CDT CBC W/DIFF AUTOMATED STAT 12/01/2016 3:06 PM CDT AMYLASE STAT 12/01/2016 3:06 PM CDT LIPASE STAT 12/01/2016 3:06 PM CDT documented in this encounter Results * (ABNORMAL) COMPREHENSIVE METABOLIC PANEL (12/01/2016 3:06 PM CDT) GLUCOSE 177(H) 70 - 99 mg/dL 12/01/2016 3:33 PM CDT [facility] BUN 13 8 - 23 mg/dL 12/01/2016 3:33 PM CDT [facility] CREATININE S/P/B 0.70 0.60 - 1.10 mg/dL 12/01/2016 3:33 PM CDT [facility] SODIUM S/P/B 138 136 - 145 mmol/L 12/01/2016 3:33 PM CDT [facility] POTASSIUM S/P/B 4.1 3.5 - 5.1 mmol/L 12/01/2016 3:33 PM CDT [facility] CHLORIDE S/P/B 100 98 - 107 mmol/L 12/01/2016 3:33 PM CDT [facility] CO2 26 22 - 29 mmol/L 12/01/2016 3:33 PM CDT [facility] BILIRUBIN TOTAL S/P/B 0.4 0.2 - 1.2 mg/dL 12/01/2016 3:33 PM CDT [facility] CALCIUM S/P/B 10.2 8.6 - 10.2 mg/dL 12/01/2016 3:33 PM CDT [facility] ALKALINE PHOSPHATASE S/P/B 63 35 - 104 U/L 12/01/2016 3:33 PM CDT [facility] AST 19 0 - 32 U/L 12/01/2016 3:33 PM CDT [facility] TOTAL PROTEIN S/P/B 8.5(H) 6.4 - 8.3 g/dL 12/01/2016 3:33 PM CDT [facility] ALBUMIN S/P/B 4.0 3.5 - 5.2 g/dL 12/01/2016 3:33 PM CDT [facility] ALT 24 0 - 33 U/L 12/01/2016 3:33 PM CDT [facility] GLOBULIN 4.5(H) 2.3 - 3.6 g/dL 12/01/2016 3:33 PM CDT [facility] A/G RATIO 0.9(L) 1.0 - 2.0 12/01/2016 3:33 PM CDT [facility] ANION GAP 16 8 - 20 12/01/2016 3:33 PM CDT [facility] EGFR NON-AFR. AMER. >60 >60 mL/min/1.7 '2 12/01/2016 3:33 PM CDT [facility] EGFR AFR. AMER. >60 >60 mL/min/1.7 '2 12/01/2016 3:33 PM CDT [facility] Comment: NOTE: eGFR is not calculated for patients <18 years of age. This is an estimated GFR (CKD EPI) and should not be used for calculating drug doses. 12/01/2016 3:06 PM CDT 12/01/2016 3:14 PM CDT us Generic Conversion [facility] Final R esult [facility] [address] [place] [address], [place] [phone] * CULTURE URINE (12/01/2016 3:06 PM CDT) SPEC DESCRIPTION URINE CLEAN CATCH 12/04/2016 2:04 PM CDT [facility] SPECIAL REQUESTS URINE CLEAN CATCH 12/04/2016 2:04 PM CDT [facility] CULTURE RESULT POLYMICROBIAL GROWTH CONSISTENT WITH NORMAL GENITAL YESENIA. ?? SUSCEPTIBILITIES NOT ROUTINELY PERFORMED. 12/03/2016 11:20 AM CDT [facility] URINE SPECIMEN OBTAINED BY CLEAN CATCH PROCEDURE / Unknown 12/01/2016 3:06 PM CDT 12/01/2016 3:28 PM CDT us Generic Conversion [facility] - GENERAL ORDERABLES Final Result [facility] [address] [place] [address], * (ABNORMAL) URINALYSIS WI REFLEX TO CULTURE (12/01/2016 3:06 PM CDT) SOURCE (FLUID) URINE CLEAN CATCH 12/01/2016 2:46 PM CDT [facility] COLOR (U) YELLOW 12/01/2016 3:28 PM CDT [facility] TRANSPARENCY CLOUDY 12/01/2016 3:28 PM CDT [facility] SPECIFIC GRAVITY (U) 1.018 1.001 - 1.030 12/01/2016 3:28 PM CDT [facility] U PH 5.0 5.0 - 9.0 12/01/2016 3:28 PM CDT [facility] LEUKOCYTES (U) LARGE(A) NEGATIVE 12/01/2016 3:28 PM CDT [facility] NITRITES NEGATIVE NEGATIVE 12/01/2016 3:28 PM CDT [facility] PROTEIN (U) NEGATIVE <30 MG/DL 12/01/2016 3:28 PM CDT [facility] URINE GLUCOSE NEGATIVE NEGATIVE MG/DL 12/01/2016 3:28 PM CDT [facility] KETONES MG/DL (U) NEGATIVE NEGATIVE MG/DL 12/01/2016 3:28 PM CDT [facility] UROBILINOGEN NEGATIVE NEGATIVE MG/DL 12/01/2016 3:28 PM CDT [facility] BILIRUBIN (U) NEGATIVE NEGATIVE MG/DL 12/01/2016 3:28 PM CDT [facility] BLOOD (U) SMALL(A) NEGATIVE 12/01/2016 3:28 PM CDT [facility] CULTURE & SENSITIVITY INDICATED? SPECIMEN SETUP FOR CULTURE 12/01/2016 3:28 PM CDT [facility] SQUAMOUS EPITHELIALS MANY /LPF 12/01/2016 3:28 PM CDT [facility] MUCUS RARE /LPF 12/01/2016 3:28 PM CDT [facility] WBC/HPF 44(H) <6 /HPF 12/01/2016 3:28 PM CDT [facility] RBC/HPF 3 <6 /HPF 12/01/2016 3:28 PM CDT [facility] 12/01/2016 3:06 PM CDT 12/01/2016 3:14 PM CDT us Generic Conversion [facility] URINE ORDERABLES Final Result [facility] [address] [place] [address], * TSH W/REFLEX (SNS) (12/01/2016 3:06 PM CDT) TSH 0.78 0.27 - 4.20 mIU/mL 12/01/2016 3:44 PM CDT [facility] Comment:FREE T4 NOT INDICATE D SERUM OR PLASMA SPECIMEN / Unknown 12/01/2016 3:06 PM CDT 12/01/2016 3:14 PM CDT us Generic Conversion [facility] Final R esult Performing Organization Address City/[facility]/ZIP Co de Phone Number [facility] [address] [place] [address], * LIPASE (12/01/2016 3:06 PM CDT) LIPASE 28 13 - 60 U/L 12/01/2016 3:33 PM CDT [facility] SERUM OR PLASMA SPECIMEN / Unknown 12/01/2016 3:06 PM CDT 12/01/2016 3:14 PM CDT us Generic Conversion [facility] Final R esvincent Performing Organization Address [facility] Co de Phone Number [facility] [address] [place] [address], * (ABNORMAL) CBC W/DIFF AUTOMATED (12/01/2016 3:06 PM CDT) WBC 9.0 4.8 - 10.8 x10'3/uL 12/01/2016 3:17 PM CDT [facility] RBC 4.38 4.20 - 5.40 x10'6/uL 12/01/2016 3:17 PM CDT [facility] HGB 12.6 12.0 - 16.0 G/DL 12/01/2016 3:17 PM CDT [facility] HCT 39.1 38.0 - 48.0 % 12/01/2016 3:17 PM CDT [facility] MCV 89.3 81.0 - 99.0 FL 12/01/2016 3:17 PM CDT [facility] MCH 28.8 27.0 - 31.0 PG 12/01/2016 3:17 PM CDT [facility] MCHC 32.2 32.0 - 36.0 G/DL 12/01/2016 3:17 PM CDT [facility] RDW 13.9 11.5 - 14.5 % 12/01/2016 3:17 PM CDT [facility] PLT 302 130 - 400 x10'3/uL 12/01/2016 3:17 PM CDT [facility] MPV 9.5 9.3 - 12.2 FL 12/01/2016 3:17 PM CDT [facility] IMMATURE GRANS % 0.4 0.0 - 1.0 % 12/01/2016 3:17 PM CDT [facility] NEUTROPHILS % 59.6 43.0 - 65.0 % 12/01/2016 3:17 PM CDT [facility] LYMPHOCYTES % 28.2 20.0 - 46.0 % 12/01/2016 3:17 PM CDT [facility] MONOCYTES % 7.8 5.0 - 12.0 % 12/01/2016 3:17 PM CDT [facility] EOSINOPHILS 3.7(H) 1.0 - 3.0 % 12/01/2016 3:17 PM CDT [facility] BASOPHILS 0.3 0.0 - 1.0 % 12/01/2016 3:17 PM CDT [facility] WHOLE BLOOD SPECIMEN / Unknown 12/01/2016 3:06 PM CDT 12/01/2016 3:14 PM CDT us Generic Conversion [facility] Final R esult [facility] [address] [place] [address], [place] [phone] * AMYLASE (12/01/2016 3:06 PM CDT) AMYLASE S/P/B 48 28 - 100 U/L 12/01/2016 3:33 PM CDT [facility] SERUM OR PLASMA SPECIMEN / Unknown 12/01/2016 3:06 PM CDT 12/01/2016 3:14 PM CDT us Generic Conversion [facility] Final R esult [facility] [address] [place] [address], documented in this encounter Visit Diagnoses Diagnosis Calculus of kidney with calculus of ureter Calculus of kidney documented in this encounter Additional Health Concerns Infection Onset Date Last Indicated Resolved Time MRSA Comment:mrsa nares pos. 02/201802/03/2017 02/03/2017 09/01/19 19 8:40 AM CDT documented as of this encounter Care Teams Barrer And Tacker Relationship Specialty Start Date End Date Lavonne Ram MD [address] [place] [address] PCP - General FAMILY PRACTICE 04/24/16 08/19/17 Meena Bansal MD [facility]. [address] [address] [employer] Design Supervisor CARDIOVASCULAR DISEASE 04/24/16 documented as of this encounter
--- OUTSIDE RECORDS SUMMARY | 2024-04-26 02:42 | XMS_ITS | Encounter Summary ---
Author Organization [facility] Address [address] [place] [address]. [place] [address] [place] [address] Care Team Providers Care Aquatic Ecologist Name Role Phone Meena Bansal MD Unavailable [phone] Gerardo Hoffman MD Primary Care Provider [phone] Reason for Referral * Imaging (Urgent) - Closed Specialty Diagnoses / Procedures Referred By Contac t Referred To Contact Procedures NM PHARM NUC STRESS TEST 1DAY Mone Carrillo MD [address] [place] [id number] Phone: tel: fax: Referral ID Status Reason Start Date Expiration Date Visits Re quested Visits Authorized [id number] Closed 03/18/2018 04/17/2019 1 1 [place] ASSISTANT * (Routine) - Canceled Specialty Diagnoses / Procedures Referred By Contac t Referred To Contact Procedures PT eval and treat Noemi Sunshine MD [address] [place] [address] Phone: tel: fax: Referral ID Status Reason Start Date Expiration Date V isits Requested Visits Authorized [id number] Canceled 03/18/2018 04/17/2019 1 1 [place] ASSISTANT * (Routine) - Closed Specialty Diagnoses / Procedures Referred By Contac t Referred To Contact Procedures Stress Test (Walking) Noemi Sunshine MD [address] [facility] [address] [place] [address] Phone: tel: fax: Referral ID Status Reason Start Date Expiration Date Visits Re quested Visits Authorized [id number] Closed 03/18/2018 04/17/2019 1 1 [place] ASSISTANT Reason for Visit * Reason Comments Breathing Problem * Auth/Cert Specialty Diagnoses / Procedures Referred By Contac t Referred To Contact Diagnoses Shortness of breath ACS (acute coronary syndrome) (HCC) Referral ID Status Reason Start Date Expiration Date Visits Re quested Visits Authorized [id number] 1 1 Encounter Details Date Type Department Care Team (Late st Contact Info) Description 03/17/2018 9:47 PM RETAIL ASSISTANT - 03/18/2018 2:40 PM RETAIL ASSISTANT Emergency [facility] Telemetry [address] [place], [place] [address] Joann Casillas, [facility] [address] [facility] [address] [place] [address] Rebecca Moyer MD [address] [facility] [address] [place], [place] [id number] Breathing Problem Discharge Disposition: Home or Self Care [...] Sexual Orientation Straight 03/18/2018 3: 01 AM RETAIL ASSISTANT documented as of this encounter Last Filed Vital Signs Vital Sign Reading Time Taken Comments Blood Pressure 118/73 03/18/2018 11:27 AM RETAIL ASSISTANT Pulse 76 03/18/2018 11:27 AM RETAIL ASSISTANT Temperature 36.6 ??C (97.8 ??F) 03/18/2018 4:03 AM CS T Respiratory Rate 18 03/18/2018 11:27 AM RETAIL ASSISTANT Oxygen Saturation 98% 03/18/2018 11:27 AM RETAIL ASSISTANT Inhaled Oxygen Concentration - - Weight 130 kg (286 lb 9.6 oz) 03/18/2018 4:03 AM RETAIL ASSISTANT Height 154.9 cm (5' 1 ) 03/17/2018 9:37 PM RETAIL ASSISTANT Body Mass Index 54.15 03/17/2018 9:37 PM RETAIL ASSISTANT documented in this encounter Discharge Summaries * Mone Carrillo MD - 03/18/2018 2:40 PM CST Physician Discharge Summary Patient ID: Mohsen Marques [id number] 62-year-old 1955 Admit date: 03/17/2018 Expected Discharge Date: 03/18/2018 Admitting Physician: Rebecca Moyer MD Discharge Physician: Rebecca Moyer MD Admission Diagnoses: Shortness of breath [R06.02] Discharge Diagnoses: Shortness of breath Admission Condition: stable Discharged Condition: stable Indication for Admission: ACS rule out Hospital Course: Mohsen Marques is a 62-year-old female with PMH of arthritis, blood clots, breast cancer, DM, HTN presented with shortness of breath over the last 3 days admitted for rule out of acute coronary syndrome. Her troponins were negative x 3. She received a Lexiscan stress test that did not show any abnormalities. She was discharged home on protonix and given instructions to follow-up with her PCP in 1-2 weeks. Consults: none Code Status: Prior Procedures: Procedures (From admission, onward) NM PHARM NUC STRESS TEST 1DAY Today MRSA SCREENING Routine TROPONIN, QUANT Routine STRESS TEST, EXERCISE (NM Stress Test - Exercise) Routine HEMOGLOBIN, GLYCOSYLATED Routine XR CHEST PA+LAT STAT ECG 12-LEAD STAT CBC W/DIFF AUTOMATED STAT COMPREHENSIVE METABOLIC PANEL STAT B-TYPE NATRIURETIC PEPTIDE STAT TROPONIN, QUANT STAT INFLUENZA A AND B STAT Referrals: No orders of the defined types were placed in this encounter. Significant Diagnostic Studies: labs: CBC, BMP, BNP, Troponin CXR: No acute cardiopulmonary disease. Lexiscan Stress Test: Stress conclusion: 1. Clinically negative. 2. Electrocardiographically negative stress test for ischemia. Stress EKG showed nonspecific T wave flattening. 3. Scintigraphic images to follow. Treatments: IV hydration and analgesia: Stamping Ground Discharge Exam: Constitutional: She is oriented to person, place, and time and well-developed, well-nourished, and in no distress. No distress. HENT: Head: Normocephalic and atraumatic. Mouth/Throat: No oropharyngeal exudate. Eyes: Conjunctivae are normal. Pupils are equal, round, and reactive to light. Right eye exhibits no discharge. Left eye exhibits no discharge. Neck: Normal range of motion. Neck supple. No tracheal deviation present. No thyromegaly present. Cardiovascular: Normal rate, regular rhythm and normal heart sounds. No murmur heard. Pulmonary/Chest: Effort normal and breath sounds normal. No respiratory distress. She has no wheezes. She exhibits no tenderness. Abdominal: Soft. Bowel sounds are normal. She exhibits no distension. There is no tenderness. Musculoskeletal: She exhibits edema. Swollen legs bilaterally, up to knee. Neurological: She is alert and oriented to person, place, and time. Skin: Skin is warm and dry. No erythema. Psychiatric: Mood and affect normal. ?? Disposition: Home or Self Care (Routine Discharge) Patient Instructions: Discharge Medication List as of 03/18/2018 1:27 PM START taking these medications Details pantoprazole (PROTONIX) 40 MG tablet Take 1 tablet (40 mg total) by mouth daily for 30 days., Starting 03/18/2018, Until Mon04/17/2018, Eprescribe CONTINUE these medications which have NOT CHANGED Details hydrocodone-acetaminophen 5-325 MG tablet Take 1 tablet by mouth 3 (three) times daily as needed for Pain., Historical Med insulin glargine 100 UNIT/ML injection (VIAL) Inject 50 Units into the skin every morning., Historical Med insulin lispro 100 UNIT/ML injection (VIAL) Inject 15 Units into the skin. Patient also uses sliding scale., Historical Med oxybutynin 5 MG tablet Take 5 mg by mouth 2 (two) times daily., Historical Med ROPINIROLE HYDROCHLORIDE 5 MG Tab Take 5 mg by mouth nightly at bedtime., Starting 07/14/2017, UntilDiscontinued, Historical Med exemestane 25 MG tablet Take 25 mg by mouth nightly at bedtime. Give with food, Starting 08/09/2017, Historical Med polyethylene glycol powder Take 17 g by mouth daily as needed (CONSTIPATION). , Starting 08/15/2017,Until Discontinued, Historical Med XARELTO 20 MG Tab tablet Take 20 mg by mouth every evening., Starting 08/08/2017, Until Discontinued, Historical Med STOP taking these medications ondansetron 4 MG disintegrating tablet PROVENTIL HFA 108 (90 Base) MCG/ACT inhaler VIRTUSSIN A/C 100-10 MG/5ML syrup Activity: activity as tolerated Diet: low fat, low cholesterol diet Wound Care: none needed Follow-up with PCP 1-2 weeks. Signed: MONE CARRILLO MD 03/19/2018 11:23 AM Cosigned by Rebecca Moyer MD at 03/19/2018 2:59 PM RETAIL ASSISTANT IL ASSISTANT IL ASSISTANT Associated attestation - Rebecca Moyer MD - 03/19/2018 2:59 PM RETAIL ASSISTANT I saw this patient and agree with the written findings. Rebecca Moyer MD documented in this encounter Discharge Instructions * Discharge Instructions* Tamika Sage RN - 03/18/2018 1:27 PM RETAIL ASSISTANT Images from the original note were not included. Patient Education Shortness of Breath (Dyspnea) The Basics Written by the doctors and editors at [facility] What is shortness of breath???--??People who have shortness of breath describe it in different ways. Some people say that they feel like they can't take a deep breath in or get enough air. Other people might feel like their chest is tight or they have to work harder than usual to breathe. The medical word for shortness of breath is dyspnea. Shortness of breath can start suddenly, over minutes to hours. It can also happen over a longer period of time, from weeks to months. What causes shortness of breath???--??Different medical conditions can cause shortness of breath. The most common causes of shortness of breath that starts suddenly are: ?Lung problems, such as asthma, infections, or blood clots - These conditions might cause other symptoms, too. For example, a lung infection usually causes a fever and cough. ?Heart problems, such as a heart attack or heart failure - A heart attack can also cause chest painor pressure. Heart failure is when the heart does not pump as well as it should. ?A severe allergic reaction, called anaphylaxis - This can also cause itching, swelling, or a rash. ? - It can be normal for women to feel slightly short of breath just after they lie down or are active. The most common causes of shortness of breath that happens over weeks to months are: ?Lung problems, such as asthma or chronic obstructive pulmonary disease (COPD) - Both of these conditions can make it hard to breathe. COPD is usually caused by smoking. ?Heart problems, such as heart failure or a change in the size and shape of the heart (called cardiomyopathy) ?Being overweight or out of shape Should I see a doctor or nurse???--??Yes. If you have shortness of breath, you should see your doctor or nurse. Sometimes shortness of breath means that your condition is serious and you need emergency help. Call for an ambulance (in the [place] and [place], dial 9-1-1) if you have: ?Shortness of breath and think you are having a heart attack ?Severe shortness of breath (hard to breathe when you are sitting still) ?An allergic reaction with shortness of breath Will I have tests???--??You might. Your doctor or nurse will talk with you, ask about your symptoms, and do an exam. Depending on what the doctor or nurse finds, he or she might order 1 or more of the following tests: ?Blood tests ?A chest X-ray ?An electrocardiogram (ECG or EKG) to measure the electrical activity in your heart ?A breathing test Depending on your results, you might need more tests, too. How is shortness of breath treated???--??Shortness of breath is treated in different ways, depending on the cause. Once your doctor or nurse figures out the cause of your symptoms, he or she will talk with you about different possible treatments. All topics are updated as new evidence becomes available and our peer review process is complete. This topic retrieved from [employer] on: Apr 27, 2017. Topic 43734 Version 6.0 Release: 25.6.2-122 - C26.3 ?2018??[employer] and/or its affiliates.??All rights reserved. Consumer Information Use and Disclaimer This information [...] or not to accept your health care provider's advice, instructions or recommendations. Only your health care provider has the knowledge and training to provide advice that is right for you.The use of [employer] content is governed by the [employer] Terms of Use. ??2018 [employer]. All rights reserved. Copyright ?2018??[employer] and/or its affiliates.??All rights reserved. Patient Education Shortness of Breath (Dyspnea) Discharge Instructions About this topic Trouble breathing is known as dyspnea. It is also known as shortness of breath or SOB. You may feellike you do not get enough air when you breathe. This is caused by different things. It comes normally after you exercise, run, or do tiring activities. When SOB happens often and suddenly, it may bernadette sign of other health problems. Treatment depends on the specific cause of trouble breathing. Yourdoctor will ask for more tests to find the cause and give treatment. What care is needed at home? ?? Ask your doctor what you need to do when you go home. Make sure you ask questions if you do not understand what the doctor says. This way you will know what you need to do. ?? Keep a diary of your signs. Write down when you have trouble breathing and what you were doing before it happened. This will help you know the cause of your signs. Then, you may learn how to avoidthem. ?? Avoid things that may trigger your trouble breathing like fumes, smoke, pollution, dust, and other common allergens. ?? Do coughing and deep breathing exercises to help keep your lungs clear. ?? Stay calm and try to breathe normally during stressful events. Do not hold your breath during activities. ?? Take warm baths or showers. Use a vaporizer at home. This can help loosen the mucus inside your nose and airways. ?? If you have drugs to take when you are feeling short of breath, be sure to carry them with you. Then, you can take them whenever needed. ?? If you smoke, you should try to quit. If you have a problem quitting, ask your doctor for help. Avoid smoked-filled places. What follow-up care is needed? ?? Your doctor may ask you to make visits to the office to check on your progress. Be sure to keep these visits. ?? Your doctor may order more tests if trouble breathing comes back. The results will help your doctor understand what health problem caused your SOB. Together you can make a plan for more care. What drugs may be needed? The doctor may order drugs to: ?? Open the lung passages ?? Relax the airways ?? Help with swelling ?? Control coughing ?? Help you relax ?? Fight an infection ?? Prevent blood clots Take all your drugs as directed by your doctor. Do not stop taking your drugs without talking to your doctor first. Do not share or take other drugs. Get refills before you run out. Will physical activity be limited? ?? Ask your doctor about exercise. Some exercises may not be safe for you. Talk to your doctor about the right amount of activity for you. ?? Stay away from activities that make it hard to breathe. Get enough rest until breathing returns to normal. What changes to diet are needed? Your doctor will tell you if changes to your diet may be needed. Ask your dietitian about your dietplan. What problems could happen? ?? Breathing problems get worse ?? Heart failure ?? Lung failure What can be done to prevent this health problem? ?? Avoid tight clothing. ?? Practice good body posture. ?? Rest when you feel out of breath. ?? Take drugs before activity if ordered. When do I need to call the doctor? ?? Sudden shortness of breath or a sudden onset of chest pain could be a sign that a blood clot hastraveled to your lungs. Go to the ER right away. ?? Signs of infection. These include a fever of 100.4??F (38??C) or higher, chills, very bad sore throat, cough, more sputum or change in color of sputum. ?? Chest pain or pressure, or passing out ?? Trouble breathing, feeling tired or weak, or fast heartbeat ?? More swelling of the feet and legs ?? Unusual weight gain ? more than 2 to 3 pounds (1 to 1.5 kg) overnight or 3 to 5 pounds (1.5 to 2.5 kg) in a week ?? You are not feeling better in 2 to 3 days or you are feeling worse Teach Back: Helping You Understand The Teach [...] tell you what may help ease my breathing. ?? I can tell you what I can do to help avoid passing the infection to others. ?? I can tell you what I will do if I have trouble breathing, chest pain, weight gain, or swelling. Where can I learn more? [employer] http://www.thoracic.org/patients/patient-resources/resources/breathlessness.pdf [place] http://www.thoracic.org/patients/patient-resources/resources/sudden-breathlessne ss.pdf Family[employer].org http://familydoctor.org/familydoctor/en/diseases-conditions/kobmppfzr-ly-bktayk. html [facility] http://www.cc.nih.gov/[facility]/patient_education/pepubs/dyspnea.pdf Last Reviewed Date 2015-02-13 Consumer Information Use and Disclaimer This information [...] right for you. Copyright Copyright ?? 2018 [employer]. and its affiliates and/or licensors. All rights reserved. [place] ASSISTANT documented in this encounter Medications at Time of Discharge exemestane 25 MG tablet Take 1 tablet by mouth daily with supper. Give with food 3 8 insulin lispro 100 UNIT/ML injection (VIAL) Inject 28 Units into the skin see administration instructions. 28 units before breakfast. 28 units before lunch. 28 units before dinner. Patient also uses sliding scale: BS>140, add 1 unit for every 15 mg/dl >140 ROPINIROLE HYDROCHLORIDE 5 MG Tab Take 1 tablet (5 mg total) by mouth nightly at bedtime. 3 8 hydrocodone-acetam inophen 5-325 MG tablet Take 1-2 tablets by mouth every 4 (four) hours. 08/31/19 19 insulin glargine 100 UNIT/ML injection (VIAL) Inject 50 Units into the skin every morning. 08/31/19 19 oxybutynin 5 MG tablet Take 5 mg by mouth 2 (two) times daily. 10/13/19 24 pantoprazole (PROTONIX) 40 MG tablet Take 1 tablet (40 mg total) by mouth daily for 30 days. 30 tablet 8 04/17/20 18 polyethylene glycol powder Take 17 g by mouth daily as needed (CONSTIPATION). 0 8 08/31/19 19 XARELTO 20 MG Tab tablet Take 20 mg by mouth every evening. 11 8 09/10/19 19 documented as of this encounter Progress Notes * Alison Villalobos, YordyD - 03/18/2018 1:01 PM CST VTE Prophylaxis Protocol: 62 y.o. Female admitted for difficulty breathing, N/V PMH history includes: VTE, breast cancer 03/18 H/H/Plt: 12.2/39.8/317, SrCr= 0.91, CrCl: 83 ml/min VTE high risk based on calculated score per pharmacy protocol Rivaroxaban continued from home meds and as such pharmacologic prophylaxis not indicated. SCDs ordered per protocol for high risk VTE Thank you, Pharmacy IL ASSISTANT * Dannielle Hernández RN - 03/18/2018 12:48 PM CST Problem: Activity Intolerance Goal: Improved activity tolerance Outcome: Progressing Patient has improved activity tolerance this shift IL ASSISTANT * Duarte Garcia PharmD - 03/18/2018 12:31 PM CST VTE risk score: 5+ based on age and history of VTE VTE risk stratification: none VTE ppx: rivaroxaban (home med) Will stratify as high risk and add SCDs IL ASSISTANT * Mone Carrillo MD - 03/18/2018 11:08 AM CST Patient was downstairs getting Lexiscan stress test at time of my assessment. Plan of Care for today is as follows: -Lexiscan stress test today, she may need more images tomorrow if any abnormalities are found -consider Cardiology consult pending results of Lexiscan -A1C pending -continue 50 U lantus at night and 15 U humalog TID AC -continue protonix 40 mg daily -continue home CPAP -Continue home Xarelto -continue home ropinirole DISPO: Pending results of Lexiscan stress test MONE CARRILLO MD Family Medicine, PGY-1 Cosigned by Rebecca Moyer MD at 03/18/2018 11:25 AM RETAIL ASSISTANT IL ASSISTANT IL ASSISTANT IL ASSISTANT Associated attestation - Rebecca Moyer MD - 03/18/2018 11:25 AM RETAIL ASSISTANT I saw this patient and agree with the written findings. Rebecca Moyer MD * Noemi Sunshine MD - 03/18/2018 5:37 AM CSTAssociated Problem(s): Epigastric pain Acute, non radiating, worsens with lying down, not related to meals. Differential includes gastroparesis 2/2 diabetes/medication side effect vs. GERD vs. PUD - started on protonix - consider titrating down ropinerole, side effect of affecting gastric motility as it is a dopaminergic agent - f/u HbA1c in setting of possible worsening DM, may result in impaired gastric motility IL ASSISTANT * Noemi Sunshine MD - 03/18/2018 2:54 AM CSTAssociated Problem(s): History of DVT (deep vein thrombosis) Chronic - Continue home Xarelto IL ASSISTANT * Noemi Sunshine MD - 03/18/2018 2:54 AM CSTAssociated Problem(s): Restless legs syndrome Chronic -Continue home ropinirole IL ASSISTANT * Noemi Sunshine MD - 03/18/2018 2:53 AM CSTAssociated Problem(s): LUL (obstructive sleep apnea) Chronic, on CPAP at home - Continue home CPAP IL ASSISTANT * Noemi Sunshine MD - 03/18/2018 2:51 AM CSTAssociated Problem(s): Type 2 diabetes mellitus ([facility]/HCC HHS/HCC) Chronic, patient reports medical compliance with 50 units of Lantus daily and 15 units of Humalog before meals. No recent HbA1c - Monitor POC glucose -[place] home regimen - Consider sliding scale insulin -Follow-up HbA1c IL ASSISTANT * Noemi Sunshine MD - 03/18/2018 2:50 AM CSTAssociated Problem(s): High blood pressure Chronic, BPs currently 127/78 - To new home meds IL ASSISTANT * Noemi Sunshine MD - 03/18/2018 2:45 AM CSTAssociated Problem(s): ACS (acute coronary syndrome) ([facility]) Acute, patient reported as epigastric pain however may be atypical presentation. Troponins negativex2. Also in differential is GERD, PUD - Admit to observation -Follow-up troponins -Monitor vitals -N.p.o. at midnight - Stress echo in a.m. - Consider cardiology consult based on results of stress test -Begin Protonix IL ASSISTANT IL ASSISTANT documented in this encounter H&P Notes * Noemi Sunshine MD - 03/18/2018 12:45 AM CST HISTORY AND PHYSICAL EXAM DATE: 03/18/2018 at 12:05AM CC: I've been feeling weak and having trouble breathing HPI: Mohsen Marques is a 62-year-old female with PMH of arthritis, blood clots, breast cancer, DM, HTN presented with shortness of breath over the last 3 days. She states shortness of breath used to occur with exertion now is happening when she is lying down and has awoken her from sleep even when she is using her CPAP. Endorses some feelings of pressure and pain in her epigastric area aswell. Is worsened when she lies flat, it is not worse after spicy foods or dairy or meals. Patient does not report any recent colonoscopy workup or endoscopy. States she also has had nausea and vomiting for the past 2 days has not been able to keep down solids or liquids. Reports feeling weakness and malaise associated with that. Does not endorse any sick symptoms or any recent sick contacts. REVIEW OF SYSTEMS: Review of Systems Constitutional: Positive for malaise/fatigue. Negative for chills, diaphoresis, fever and weight loss. HENT: Negative for congestion, ear pain, hearing loss, nosebleeds and tinnitus. Eyes: Negative for blurred vision, double vision and photophobia. Respiratory: Positive for shortness of breath. Negative for cough, hemoptysis and sputum production. Cardiovascular: Positive for chest pain. Negative for palpitations. Gastrointestinal: Positive for abdominal pain, nausea and vomiting. Negative for constipation, diarrhea and heartburn. Genitourinary: Negative for dysuria, frequency and urgency. Musculoskeletal: Negative for back pain, myalgias and neck pain. Skin: Negative for rash. Neurological: Negative for dizziness, tingling, tremors and headaches. Psychiatric/Behavioral: Negative for depression and suicidal ideas. ED COURSE: PAST MEDICAL HISTORY: Past Medical History: Diagnosis Date ??? Arthritis ??? Blood clot in vein ??? Breast cancer (HCC) ??? Cancer (HCC) ??? Diabetes mellitus (HCC) ??? Disease of thyroid gland ??? Hypertension [...] Authorizing Provider hydrocodone-acetaminophen 5-325 MG tablet Take 1 tablet by mouth 3 (three) times daily as needed for Pain. Yes Doc Abstract insulin glargine 100 UNIT/ML injection (VIAL) Inject 50 Units into the skin every morning. Yes Doc Abstract insulin lispro 100 UNIT/ML injection (VIAL) Inject 15 Units into the skin. Patient also uses sliding scale. Yes Doc Abstract oxybutynin 5 MG tablet Take 5 mg by mouth 2 (two) times daily. Yes Doc Abstract ROPINIROLE HYDROCHLORIDE 5 MG Tab Take 5 mg by mouth nightly at bedtime. 3/23/18 Yes Doc Abstract exemestane 25 MG tablet Take 25 mg by mouth nightly at bedtime. Give with food 08/09/17 Doc Abstract polyethylene glycol powder Take 17 g by mouth daily as needed (CONSTIPATION). 08/15/17 Doc Abstract XARELTO 20 MG Tab tablet Take 20 mg by mouth every evening. 08/08/17 Doc Abstract SOCIAL HISTORY: Social History Socioeconomic History ??? Marital status: Spouse name: Not on file ??? Number of children: Not on file ??? Years of education: Not on file ??? Highest education level: Not on file Social Needs ??? Financial resource strain: Not on file ??? Food insecurity - worry: Not on file ??? Food insecurity - inability: Not on file ??? Transportation needs - medical: Not on file ??? Transportation needs - non-medical: Not on file Occupational History ??? Not on file Tobacco Use ??? Smoking status: Former Smoker Last attempt to quit: 03/23/1977 Years since quittin.0 ??? Smokeless tobacco: Never Used Substance and Sexual Activity ??? Alcohol use: No ??? Drug use: No ??? Sexual activity: No Other Topics Concern ??? Not on file Social History Narrative ??? Not on file FAMILY HISTORY: Family History Problem Relation Age of Onset ??? Aneurysm Mother ??? Diabetes Mother ??? Heart Disease Mother ??? Hyperlipidemia Mother ??? Hypertension Mother ??? Stroke Mother ??? Cancer Father ??? Cancer Sister ??? COPD Sister ??? Depression Sister ??? Cancer Brother PRIMARY CARE PROVIDER: GERARDO HOFFMAN MD CODE STATUS: Full Code PHYSICAL EXAM: Vitals: Blood pressure 115/71, pulse 85, temperature 97.8 ??F (36.6 ??C), temperature source Oral, resp. rate 20, height 5' 1 (1.549 m), weight 130 kg (286 lb 9.6 oz), SpO2 97 %., Body mass index is54.15 kg/m??. Temp: [97.8 ??F (36.6 ??C)] 97.8 ??F (36.6 ??C) Pulse: [70-85] 85 Resp: [20] 20 BP: (88-127)/(44-78) 115/71 Physical Exam Constitutional: She is oriented to person, place, and time and well-developed, well-nourished, and in no distress. No distress. HENT: Head: Normocephalic and atraumatic. Mouth/Throat: No oropharyngeal exudate. Eyes: Conjunctivae are normal. Pupils are equal, round, and reactive to light. Right eye exhibits no discharge. Left eye exhibits no discharge. Neck: Normal range of motion. Neck supple. No tracheal deviation present. No thyromegaly present. Cardiovascular: Normal rate, regular rhythm and normal heart sounds. No murmur heard. Pulmonary/Chest: Effort normal and breath sounds normal. No respiratory distress. She has no wheezes. She exhibits no tenderness. Abdominal: Soft. Bowel sounds are normal. She exhibits no distension. There is no tenderness. Musculoskeletal: She exhibits no edema. Swollen legs bilaterally, up to knee. Neurological: She is alert and oriented to person, place, and time. Skin: Skin is warm and dry. No erythema. Psychiatric: Mood and affect normal. Labs: Recent Labs Lab 03/17/182207 WBC 10.2 RBC 4.49 HGB 12.2 HCT 39.8 MCV 88.6 MCH 27.2 MCHC 30.7* PLT 317 RDW 14.6* MPV 9.8 PERNEU 64.5 PERLYM 23.6 PERMON 7.6 LYMC 2.41 MONOC 0.78 EOSC 0.38* BASOC 0.04 DTYPE AUTOMATED DIFFERENTIAL Recent Labs Lab 03/17/182207 NA 139 K 4.3 CL 106 CO2 28.4 AGAP 8.9 BUN 18 CR 0.91 BUNCREATININ 19.7 GFRNON 68* GFR 79* GLU 238* CA 9.0 TP 8.1 ALB 3.2* TBIL 0.4 ALKP 102 AST 14* ALT 24 No results for input(s): PTT, INR in the last 168 hours. Recent Labs Lab 03/17/18220703/18/18 0135 TROP <0.015 <0.015 No results for input(s): LACTICACID, PROCT in the last 168 hours. No results for input(s): PH, PCO2, PO2, [id number], BICARBWB, BASEDEFICIT, BASEEXCESS in the uaih293 hours. Cultures: Blood: No results found for this visit on 03/17/18 (from the past 168 hour(s)). Urine: No results found for this visit on 03/17/18 (from the past 168 hour(s)). Cardiac: Results for orders placed or performed during the hospital encounter of 03/17/18 ECG [address] 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 No ischemic changes CRITICAL ALERT ISSUED ON 03-17-2018 22:09:09 [place] ASSISTANT Radiology studies: XR CHEST PA+LAT Final Result by User, [id number] (03/178) EXAMINATION: CHEST X-RAY TWO VIEWS EXAM TIME: 2308 hours. COMPARISON: 08/20/2017. HISTORY: Fatigue, weakness, and dyspnea on extension for 3 days. Nausea and vomiting. FINDINGS: PA and lateral views of the chest are submitted for evaluation. The heart is within normal limits in size. Pulmonary vascularity is within normal limits. The lungs are well expanded without focal airspace consolidation. No pleural effusions. No pneumothorax. IMPRESSION: No acute cardiopulmonary disease. Interpreted By: Tina Ariza MD, 03/17/2018 11:15 PM USE STRESS ECHO INCLUDING S AND I (Walking) (Results Pending) ASSESSMENT AND PLAN: Patient is a 62-year-old female with PMHx of PMH of arthritis, blood clots, breast cancer, DM, HTN admitted rule out ACS, troponin negative x2, currently stable Nervous Epigastric pain Assessment & Plan Acute, non radiating, worsens with lying down, not related to meals. Differential includes gastroparesis 2/2 diabetes/medication side effect vs. GERD vs. PUD - started on protonix - consider titrating down ropinerole, side effect of affecting gastric motility as it is a dopaminergic agent - f/u HbA1c in setting of possible worsening DM, may result in impaired gastric motility Respiratory LUL (obstructive sleep apnea) Assessment & Plan Chronic, on CPAP at home - Continue home CPAP Circulatory Hypertension Assessment & Plan Chronic, BPs currently 127/78 - To new home meds * ACS (acute coronary syndrome) (HCC) Assessment & Plan Acute, patient reported as epigastric pain however may be atypical presentation. Troponins negativex2. Also in differential is GERD, PUD - Admit to observation -Follow-up troponins -Monitor vitals -N.p.o. at midnight - Stress echo in a.m. - Consider cardiology consult based on results of stress test -Begin Protonix Musculoskeletal RLS (restless legs syndrome) Assessment & Plan Chronic -Continue home ropinirole Endocrine Type 2 diabetes mellitus (HCC) Assessment & Plan Chronic, patient reports medical compliance with 50 units of Lantus daily and 15 units of Humalog before meals. No recent HbA1c - Monitor POC glucose -[place] home regimen - Consider sliding scale insulin -Follow-up HbA1c Other History of DVT (deep vein thrombosis) Assessment & Plan Chronic - Continue home Xarelto Fluids: NS 100 cc/hour Diet: N.p.o. VTE Prophylaxis: On Xarelto DISPOSITION: Pending stress echo in a.m. Plan discussed with attending physician. NOEMI SUNSHINE MD Family Medicine, PGY-1 Cosigned by Rebecca Moyer MD at 03/18/2018 11:28 AM RETAIL ASSISTANT IL ASSISTANT IL ASSISTANT IL ASSISTANT Associated attestation - Rebecca Moyer MD - 03/18/2018 11:28 AM RETAIL ASSISTANT I saw this patient and agree with the written findings. Rebecca Moyer MD documented in this encounter ED Notes * Marin Brownlee RN - 03/17/2018 11:46 PM CST Bed weight on pt is 128.9 kg. IL ASSISTANT * Joann Montero Vinny, NUT ROASTER HELPER - 03/17/2018 11:42 PM CST Chief Complaint Chief Complaint Patient presents with ??? Breathing Problem History of Present Illness 62-year-old female presents to emergency room with worsening shortness of breath over the last 3 days. She states her shortness of breath is worse when she is laying down, or sleeping despite sleeping with her CPAP. She does note that she has a pressure sensation in her epigastric area. History of breast cancer, hypertension, diabetes. Denies fevers or chills Medical History ALLERGIES: Allergies Allergen Reactions ??? Cephalosporins Anaphylaxis ??? Rocephin [Ceftriaxone] Shortness of Breath ??? Oxycodone Vomiting ??? Reglan [Metoclopramide] Hyperactive MEDICATIONS: Prior to Admission medications Medication Sig Start Date End Date Taking? Authorizing Provider exemestane 25 MG tablet Take 1 tablet by mouth daily. Give after a meal. 08/09/17 Doc Abstract ondansetron 4 MG disintegrating tablet Take 1 tablet (4 mg total) by mouth every 8 (eight) hours asneeded for Nausea. 08/28/17 Jimmie Navarro, DO polyethylene glycol powder Take 17 g by [...] by mouth every evening. 08/08/17 Doc Abstract PAST MEDICAL HISTORY: Past Medical History: Diagnosis Date ??? Arthritis ??? Blood clot in vein ??? Breast cancer (HCC) ??? Cancer (HCC) ??? Diabetes mellitus (HCC) ??? Disease of thyroid gland ??? Hypertension ??? Kidney stones ??? Neuropathy ??? Restless leg syndrome PAST SURGICAL HISTORY: Past Surgical History: Procedure Laterality Date ??? SECTION ??? CHOLECYSTECTOMY ??? HERNIA REPAIR ??? MASTECTOMY ??? TOTAL KNEE ARTHROPLASTY FAMILY HISTORY: Family History Problem Relation Age of Onset [...] chills and fever. HENT: Negative for congestion, sinus pain and sore throat. Eyes: Negative for pain and redness. Respiratory: Positive for shortness of breath. Negative for cough, chest tightness and wheezing. Cardiovascular: Negative for chest pain. Gastrointestinal: Negative for abdominal pain, constipation, diarrhea, nausea and vomiting. Musculoskeletal: Negative for arthralgias and joint swelling. Skin: Negative for rash and wound. Neurological: Negative for headaches. Psychiatric/Behavioral: Negative for agitation. The patient is not nervous/anxious. Physical Exam Filed Vitals: 03/17/18 2137 03/17/18 2325 03/17/18 2347 BP: 127/78 109/60 Pulse: 71 76 Resp: 20 20 Temp: 97.8 ??F (36.6 ??C) TempSrc: Oral SpO2: 100% 98% Weight: 128.9 kg (284 lb 2.8 oz) Height: 5' 1 (1.549 m) Physical Exam Constitutional: She is oriented to person, place, and time. She appears well-developed. HENT: Head: Normocephalic. Eyes: Pupils are equal, round, and reactive to light. Cardiovascular: Normal rate and regular rhythm. Pulmonary/Chest: Effort normal and breath sounds normal. She has no wheezes. She has no rales. Abdominal: Soft. Musculoskeletal: Normal range of motion. Neurological: She is alert and oriented to person, place, and time. Skin: Skin is warm and dry. Psychiatric: She has a normal mood and affect. Nursing note and vitals reviewed. 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1955 Requested By: RIMA THACKER Order Number: [id number] Reading MD: Measurements Intervals [place] Rate: 72 P: 33 NE: 128 QRS: 17 QRSD: 93 T: 53 QT: 365 QTc: 400 Interpretive Statements SINUS RHYTHM NONSPECIFIC T-WAVE ABNORMALITY Compared to ECG 08/20/2017 13:15:35 No significant changes LABORATORY STUDIES: Results for orders placed or performed during the hospital encounter of 03/17/18 CBC W/DIFF AUTOMATED Result Value Ref Range WBC 10.2 4.5 - 11.0 x10'3/uL RBC 4.49 4.20 - 5.40 x10'6/uL HGB 12.2 12.0 - 16.0 G/DL HCT 39.8 38.0 - 48.0 % MCV 88.6 80.0 - 94.0 FL MCH 27.2 27.0 - 31.0 PG MCHC 30.7 (L) 32.0 - 36.0 G/DL RDW 14.6 (H) 11.5 - 14.5 % PLT 317 130 - 400 x10'3/uL MPV 9.8 9.3 - 12.2 FL DIFFERENTIAL TYPE AUTOMATED DIFFERENTIAL NEUTROPHILS 64.5 % LYMPHOCYTES 23.6 % MONOCYTES 7.6 % EOSINOPHILS 3.7 % BASOPHILS 0.4 % IMMATURE GRANS 0.2 (H) 0 % ABS. NEUTROPHILS TOTAL 6.59 1.80 - 7.70 x10'3/uL ABS. LYMPHOCYTES 2.41 1.00 - 4.80 x10'3/uL ABS. MONOCYTES 0.78 0.24 - 0.86 x10'3/uL ABS. EOSINOPHILS 0.38 (H) 0.04 - 0.36 x10'3/uL ABS. BASOPHILS 0.04 0.01 - 0.08 x10'3/uL ABS. IMMATURE GRANULOCYTES 0.02 0.00 - 0.03 x10'3/uL COMPREHENSIVE METABOLIC PANEL Result Value Ref Range GLUCOSE 238 (H) 70 - 99 MG/DL BUN 18 7 - 18 MG/DL CREATININE 0.91 0.55 - 1.02 MG/DL SODIUM 139 136 - 145 MMOL/L POTASSIUM 4.3 3.5 - 5.1 MMOL/L CHLORIDE 106 100 - 108 MMOL/L CO2 28.4 21 - 32 MMOL/L CALCIUM 9.0 8.5 - 10.1 MG/DL TOTAL BILIRUBIN 0.4 0.2 - 1.2 MG/DL TOTAL PROTEIN 8.1 6.4 - 8.2 G/DL ALBUMIN 3.2 (L) 3.4 - 5.0 G/DL AST 14 (L) 15 - 37 U/L ALT 24 14 - 55 U/L ALK PHOS 102 50 - 136 U/L ANION GAP 8.9 8 - 20 MMOL/L BUN CREATININE RATIO 19.7 6 - 26 A/G RATIO 0.7 (L) 1.0 - 2.0 RATIO eGFR Non-Afr. Amer. 68 (L) >90 ML/MIN/1.73 M2 eGFR Afr. Amer. 79 (L) >90 ML/MIN/1.73 M2 B-TYPE NATRIURETIC PEPTIDE Result Value Ref Range B TYPE NATRIURETIC PEPTIDE 9 <100 PG/ML TROPONIN, QUANT Result Value Ref Range TROPONIN I <0.015 <0.045 ng/mL. INFLUENZA A & B Result Value Ref Range Specimen Type NASOPHARYNGEAL SWAB INFLUENZA A NEGATIVE NEGATIVE INFLUENZA B NEGATIVE NEGATIVE IMAGING STUDIES XR CHEST PA+LAT Final Result by User, [id number] (03/17 2096) EXAMINATION: CHEST X-RAY TWO VIEWS EXAM TIME: 2308 hours. COMPARISON: 08/20/2017. HISTORY: Fatigue, weakness, and dyspnea on extension for 3 days. Nausea and vomiting. FINDINGS: PA and lateral views of the chest are submitted for evaluation. The heart is within normal limits in size. Pulmonary vascularity is within normal limits. The lungs are well expanded without focal airspace consolidation. No pleural effusions. No pneumothorax. IMPRESSION: No acute cardiopulmonary disease. Interpreted By: Tina Ariza MD, 03/17/2018 11:15 PM USE STRESS ECHO INCLUDING S AND I (Walking) (Results Pending) NM EXER NUC STRESS TEST 1DAY (Results Pending) ED Course / Medical Decision Making MDM Number of Diagnoses or Management Options Shortness of breath: new and requires workup Diagnosis management comments: 62-year-old female to ER with worsening shortness of breath and epigastric discomfort for the past 4 days. heart score of 5, discussed with [facility] resident admission for cardiac rule out. Amount and/or Complexity of Data Reviewed Clinical lab tests: ordered and reviewed Tests in the radiology section of CPT??: ordered and reviewed Tests in the medicine section of CPT??: ordered and reviewed Decide to obtain previous medical records or to obtain history from someone other than the patient:yes Patient Progress Patient progress: stable Clinical Impression Shortness of breath (Primary) Disposition: Admit HUMAIRA Holder 03/18/18 0050 Cosigned by Jeremías Jiménez MD at 03/18/2018 6:10 AM RETAIL ASSISTANT IL ASSISTANT IL ASSISTANT * HUMAIRA Velazquez - 03/17/2018 9:49 PM CST [place], [place] EMERGENCY DEPARTMENT ENCOUNTER Medical Screening Examination 03/17/18 9:49 PM Chief Complaint : Breathing Problem HPI : Mohsen Marques is a 62-year-old female who presents with fatigue, weakness, sob with exertion, onset 3 days ago, today started with n/v, approx 5 episodes of emesis. States the breathing part is concerning, and she wakes up gasping for air , some chest pain when lying flat. Vital Signs: Filed Vitals: 03/17/18 2137 BP: 127/78 Pulse: 71 Resp: 20 Temp: 97.8 ??F (36.6 ??C) TempSrc: Oral SpO2: 100% Height: 5' 1 (1.549 m) Physical exam: A brief physical exam was completed to facilitate/expedite patient care. Plan: labs, ekg, xray HUMAIRA Velazquez 03/17/182151 IL ASSISTANT * Jennifer Dennison RN - 03/17/2018 9:35 PM CST Pt to ER with tobacco conditioner trouble breathing. Pt reports being sick since thanksgiving. Reports trouble breathing when she lays down and with exertion. Pt reports some nausea and vomiting along with malaise. No diarrhea, no fevers. Denies respiratory conditions but has pulmonary hypertension. No respiratorydistress at this time JENNIFER DENNISON RN IL ASSISTANT IL ASSISTANT documented in this encounter Plan of Treatment Not on file documented as of this encounter Procedures Procedure Name Priority Date/Time Associated Diagnosis Comments NM PHARM NUC STRESS TEST 1DAY Today 03/18/2018 11:49 AM RETAIL ASSISTANT POCT GLUCOSE - SAVAGE DOCKED DEVICE Routine 03/18/2018 11:25 AM RETAIL ASSISTANT POCT GLUCOSE - SAVAGE DOCKED DEVICE Routine 03/18/2018 6:45 AM RETAIL ASSISTANT TROPONIN, QUANT STAT 03/18/2018 5:15 AM RETAIL ASSISTANT MRSA SCREENING Routine 03/18/2018 4:46 AM RETAIL ASSISTANT TROPONIN, QUANT STAT 03/18/2018 1:35 AM RETAIL ASSISTANT STRESS TEST ONLY, EXERCISE STAT 03/18/2018 12:43 AM RETAIL ASSISTANT XR CHEST PA+LAT STAT 03/17/2018 11:13 PM RETAIL ASSISTANT HEMOGLOBIN, GLYCOSYLATED Routine 03/17/2018 10:08 PM RETAIL ASSISTANT INFLUENZA A & B STAT 03/17/2018 10:08 PM RETAIL ASSISTANT BNP STAT 03/17/2018 10:08 PM RETAIL ASSISTANT COMPREHENSIVE METABOLIC PANEL STAT 03/17/2018 10:08 PM RETAIL ASSISTANT CBC W/DIFF AUTOMATED STAT 03/17/2018 10:08 PM RETAIL ASSISTANT TROPONIN, QUANT STAT 03/17/2018 10:08 PM RETAIL ASSISTANT ECG 12-LEAD STAT 03/17/2018 10:02 PM RETAIL ASSISTANT documented in this encounter Results * NM PHARM NUC STRESS TEST 1DAY (03/18/2018 11:49 AM RETAIL ASSISTANT) Anatomical Region Laterality Modality Cardiac Nuclear Medicine 03/18/2018 10:2 1 AM RETAIL ASSISTANT Narrative 03/18/2018 11:45 AM RETAIL ASSISTANT ? Myocardial Perfusion Imaging ? Pat.Name: ??MARIE MOHSEN M ?Pat.ID: ?[id number] ? St.Date: ?? 03/18/2018 ?Refer.MD: ??Mone Carrillo ? Exam Time: 10:21:00 AM ? Study Type:EUGENIO NC HT MUSCLE IMAGE SPECT MULTI Height: ?61in ?Weight: ?276lb ? BSA: ? 2.17 m2 ?Age: ??1955,62Y ? Sex: ? FEMALE ?Sonogrphr: Dom Noyola, [employer]AL DISORDERS COUNSELOR ? Pat. Stat.:Inpatient ? Room: ?B454 ? Reason for Study:Chest pain, Shortness of breath History / Clinical:Diabetes, Hypertension, Ex-Smoker, Sleep Apnea, PVD/PAD Procedures:Nuclear Stress Test with Lexiscan Race: ?W ? Surgery: ?? None ? ++++++++++++++++++++++++++++++++++++ SUMMARY: ++++++++++++++++++++++++++++++++++++ Stress conclusion: 1. ? Clinically negative. 2. ? Electrocardiographically negative stress test for ischemia. Stress EKG showed nonspecific T wave flattening. 3. ? Scintigraphic images to follow. Perfusion conclusion: 1. ??Good study quality. ??No motion correction was applied to images. No attenuation is noted. ??Prone imaging could not be performed. 2. ??Normal myocardial perfusion SPECT imaging. ?? 3. ??Normal wall motion with an ejection fraction of 64%. ?? 4. ??Stress test with myocardial perfusion imaging shows overall low-intermediate risk for a cardiac event. ++++++++++++++++++++++++++++++++++++ FINDINGS: ++++++++++++++++++++++++++++++++++++ Protocol: Lexiscan 0.4mg was given as a rapid injection IV over a ?period ??of 10 seconds with the radiopharmaceutical injected ?at ??20 seconds. The images were processed using the standard ?SPECT ??technique. ??A gated study was performed on the stress ?images. Impression: SPECT images demonstrate normal perfusion of normal ?intensity. Heart Size: The left ventricle is normal. The end systolic volume is ?35ml. ??The end diastolic volume is 98ml. LV Wall Motion: The LVEF is calculated to be 64%. Gated SPECT images ?reveal ??normal wall motion. ++++++++++++++++++++++++++++++++++++ STRESS: ++++++++++++++++++++++++++++++++++++ Baseline Vital Signs: ?Intervention ??Regadenoson ECG ?Normal sinus rhythm ? Peak Dose ??0.4 mg HR ? 74 ?Atropine 0 Rest BP ?109/52 ? Stress Test Results: Max. HR ?97 ? Pred. Max. Heart Rate (100%) 159 ?? % Target: ??61 % ? Max BP ? 123/61 ?O2 Sat ? 97 % Max RPP ?68080 ? Symptoms and Complications: Terminated Protocol completed Symptoms ?? Headache, Nausea Complications None Stress ECG Interp No ST segment changes diagnostic of ischemia, Non-specific T wave flattening Signed 03/18/2018 11:45 AM Lazaro Givens M.D. Procedure Note Lazaro Givens MD - 03/18/2018 Myocardial Perfusion Imaging Pat.Name: MOHSEN MARQUES Pat.ID: [id number] St.Date: 03/18/2018 Refer.MD: Mone Carrillo Exam Time: 10:21:00 AM Study Type:EUGENIO MA HT MUSCLE IMAGE SPECT MULTI Height: 61in Weight: 276lb BSA: 2.17 m2 Age: 2 1955,62Y Sex: FEMALE Sonogrphr: NIHARIKA Carr Pat. Stat.:Inpatient Room: B454 Reason for Study:Chest pain, Shortness of breath History / Clinical:Diabetes, Hypertension, Ex-Smoker, Sleep Apnea, PVD/PAD Procedures:Nuclear Stress Test with Lexiscan Race: W Surgery: None ++++++++++++++++++++++++++++++++++++ SUMMARY: ++++++++++++++++++++++++++++++++++++ Stress conclusion: 1. Clinically negative. 2. Electrocardiographically negative stress test for ischemia. Stress EKG showed nonspecific T wave flattening. 3. Scintigraphic images to follow. Perfusion conclusion: 1. Good study quality. No motion correction was applied to images. No attenuation is noted. Prone imaging could not be performed. 2. Normal myocardial perfusion SPECT imaging. 3. Normal wall motion with an ejection fraction of 64%. 4. Stress test with myocardial perfusion imaging shows overall low-intermediate risk for a cardiac event. ++++++++++++++++++++++++++++++++++++ FINDINGS: ++++++++++++++++++++++++++++++++++++ Protocol: Lexiscan 0.4mg was given as a rapid injection IV over a period of 10 seconds with the radiopharmaceutical injected at 20 seconds. The images were processed using the standard SPECT technique. A gated study was performed on the stress images. Impression: SPECT images demonstrate normal perfusion of normal intensity. Heart Size: The left ventricle is normal. The end systolic volume is 35ml. The end diastolic volume is 98ml. LV Wall Motion: The LVEF is calculated to be 64%. Gated SPECT images reveal normal wall motion. ++++++++++++++++++++++++++++++++++++ STRESS: ++++++++++++++++++++++++++++++++++++ Baseline Vital Signs: Intervention Regadenoson ECG Normal sinus rhythm Peak Dose 0.4 mg HR 74 Atropine 0 Rest BP 109/52 Stress Test Results: Max. HR 97 Pred. Max. Heart Rate (100%) 159 % Target: 61 % Max BP 123/61 O2 Sat 97 % Max RPP 16484 Symptoms and Complications: Terminated Protocol completed Symptoms Headache, Nausea Complications None Stress ECG Interp No ST segment changes diagnostic of ischemia, Non-specific T wave flattening Signed 03/18/2018 11:45 AM Lazaro Givens M.D. Mone Carrillo MD [facility] [place] [facility] Final Result * (ABNORMAL) POCT glucose (03/18/2018 11:25 AM RETAIL ASSISTANT) GLUCOSE POC 178(H) 70 - 99 mg/dL 03/18/2018 11:49 AM RETAIL ASSISTANT [facility] ORDERS INTERFACE 03/18/2018 11:2 5 AM RETAIL ASSISTANT us Rebecca Moyer MD POCT ORDERABLES - DEVICE F inal Result Performing Organization Address [facility] de Phone Number [facility] ORDERS INTERFACE US * (ABNORMAL) POCT glucose (03/18/2018 6:45 AM RETAIL ASSISTANT) GLUCOSE POC 195(H) 70 - 99 mg/dL 03/18/2018 6:57 AM RETAIL ASSISTANT [facility] ORDERS INTERFACE 03/18/2018 6:45 AM RETAIL ASSISTANT Rebecca Moyer MD POCT ORDERABLES - DEVICE F inal Result Performing Organization Address [facility] de Phone Number [facility] ORDERS INTERFACE US * TROPONIN, QUANT (03/18/2018 5:15 AM RETAIL ASSISTANT) TROPONIN I <0.015 <0.045 ng/mL. 03/18/2018 5:45 AM RETAIL ASSISTANT [facility] Comment: HIGH DOSES OF BIOTIN MAY INTERFERE WITH THIS TEST RESULT. CORRELATION TO CLINICAL HISTORY AND PRESENTATION RECOMMENDED. 03/18/2018 5:15 AM RETAIL ASSISTANT us Radhika Adamson MD LABORATORY Final Result Performing Organization Address [facility]/State/ZIP Co de Phone Number [facility] [address] [place] [address], * MRSA SCREENING (03/18/2018 4:46 AM RETAIL ASSISTANT) SPEC DESCRIPTION NASAL 03/18/2018 4:46 AM RETAIL ASSISTANT [facility] SPECIAL REQUESTS NO SPECIAL REQUEST Successful Call: CULT,RPT,SDES,SRE Q called 03/19/2018 08:02 AM to [employer] ([id number]/NO,CALL) by [id number]. 03/18/2018 4:46 AM RETAIL ASSISTANT [facility] CULTURE RESULT METHICILLIN RESISTANT STAPH AUREUS PRESENT FOLLOW ISOLATION PROTOCOL. 03/19/2018 8:02 AM RETAIL ASSISTANT [facility] CULTURE RESULT POSITIVE RESULTS NEED PHONED TO PHYSICIAN, BY NURSING STAFF, MALDONADO, FOR POSSIBLE DECOLONIZATION PROTOCOL ORDERS. Successful Call: CULT,RPT,SDES,SRE Q called 03/19/2018 08:02 AM to [employer] ([id number]/NO,CALL) by [id number]. 03/19/2018 8:02 AM RETAIL ASSISTANT [facility] SPECIMEN FROM INTERNAL NOSE / Unknown 03/18/2018 4:46 AM RETAIL ASSISTANT 03/18/2018 5:04 AM RETAIL ASSISTANT Rebecca Moyer MD MICROBIOLOGY - GENERAL ORD ERABLES Final Result [facility] [address] [place] [address], * TROPONIN, QUANT (03/18/2018 1:35 AM RETAIL ASSISTANT) TROPONIN I <0.015 <0.045 ng/mL. 03/18/2018 1:57 AM RETAIL ASSISTANT [facility] Comment: HIGH DOSES OF BIOTIN MAY INTERFERE WITH THIS TEST RESULT. CORRELATION TO CLINICAL HISTORY AND PRESENTATION RECOMMENDED. 03/18/2018 1:35 AM RETAIL ASSISTANT us Radhika Adamson MD LABORATORY Final Result [facility] [address] [facility] [place] [address], [place] [phone] * XR CHEST PA+LAT (03/17/2018 11:13 PM RETAIL ASSISTANT) Anatomical Region Laterality Modality Chest Radiographic Lizeth ging 03/17/2018 11:1 5 PM RETAIL ASSISTANT Narrative 03/17/2018 11:15 PM RETAIL ASSISTANT EXAMINATION: CHEST X-RAY TWO VIEWS EXAM TIME: 2308 hours. COMPARISON: 08/20/2017. HISTORY: Fatigue, weakness, and dyspnea on extension for 3 days. ??Nausea and vomiting. FINDINGS: PA and lateral views of the chest are submitted for evaluation. The heart is within normal limits in size. Pulmonary vascularity is within normal limits. The lungs are well expanded without focal airspace consolidation. No pleural effusions. No pneumothorax. IMPRESSION: No acute cardiopulmonary disease. Interpreted By: Tina Ariza MD, 03/17/2018 11:15 PM Procedure Note Prince Ariza MD - 03/17/2018 EXAMINATION: CHEST X-RAY TWO VIEWS EXAM TIME: 2308 hours. COMPARISON: 08/20/2017. HISTORY: Fatigue, weakness, and dyspnea on extension for 3 days. Nausea andvomiting. FINDINGS: PA and lateral views of the chest are submitted for evaluation. The heartis within normal limits in size. Pulmonary vascularity is within normallimits. The lungs are well expanded without focal airspace consolidation.No pleural effusions. No pneumothorax. IMPRESSION: No acute cardiopulmonary disease. Interpreted By: Tina Ariza MD, 03/17/2018 11:15 PM Rima Thacker NUT ROASTER HELPER GENERAL IMAGING Final Res ult * (ABNORMAL) HEMOGLOBIN, GLYCOSYLATED (03/17/2018 10:08 PM RETAIL ASSISTANT) HGB A1C 7.7(H) <5.7 % 03/18/2018 11:[address] [facility] Comment: No variants detected ADA GUIDELINES 5.7-6.4% INCREASED RISK FOR FUTURE DIABETES > OR = 6.5% ??DIABETES DIABETIC GOAL ??<7.0% ADDITIONAL ACTION SUGGESTED ??>8.0% National Glycohemoglobin Standardization Program (NGSP) TESTING PERFORMED AT [address] ??[id number] 03/17/2018 10:0 8 PM RETAIL ASSISTANT Joann Casillas NUT ROASTER HELPER LABORATORY Final Resul t [facility] [address] [place] [address], [place] [phone] * INFLUENZA A & B (03/17/2018 10:08 PM RETAIL ASSISTANT) SPECIMEN TYPE NASOPHARYNGEAL SWAB 03/17/2018 10:13 PM RETAIL ASSISTANT [facility] INFLUENZA A NEGATIVE NEGATIVE 03/17/2018 10:41 PM RETAIL ASSISTANT [facility] INFLUENZA B NEGATIVE NEGATIVE 03/17/2018 10:41 PM RETAIL ASSISTANT [facility] Comment: Interpretation: Negative for Influenza [...] a separate order. NASOPHARYNGEAL SWAB / Unknown 03/17/2018 10:08 PM RETAIL ASSISTANT Rima Thacker NUT ROASTER HELPER MICROBIOLOGY - GENERAL OR DERABLES Final Result Performing Organization Address City/[facility]/ZIP Co de Phone Number [facility] [address] [place] [address], * TROPONIN, QUANT (03/17/2018 10:08 PM RETAIL ASSISTANT) TROPONIN I <0.015 <0.045 ng/mL. 03/17/2018 10:41 PM RETAIL ASSISTANT [facility] Comment: HIGH DOSES OF BIOTIN MAY INTERFERE WITH THIS TEST RESULT. CORRELATION TO CLINICAL HISTORY AND PRESENTATION RECOMMENDED. 03/17/2018 10:0 8 PM RETAIL ASSISTANT Rima Thacker [facility] Final Res ult Performing Organization Address City/[facility]/ZIP Co de Phone Number [facility] [address] [place] [address], [place] [phone] * B-TYPE NATRIURETIC PEPTIDE (03/17/2018 10:08 PM RETAIL ASSISTANT) B TYPE NATRIURETIC PEPTIDE 9 <100 PG/ML 03/17/2018 10:57 PM RETAIL ASSISTANT [facility] 03/17/2018 10:0 8 PM RETAIL ASSISTANT Rima Thacker [facility] Final Res ult [facility] [address] [place] [address], [place] [phone] * (ABNORMAL) COMPREHENSIVE METABOLIC PANEL (03/17/2018 10:08 PM RETAIL ASSISTANT) GLUCOSE 238(H) 70 - 99 MG/DL 03/17/2018 10:41 PM RETAIL ASSISTANT [facility] BUN 18 7 - 18 MG/DL 03/17/2018 10:41 PM RETAIL ASSISTANT [facility] CREATININE S/P/B 0.91 0.55 - 1.02 MG/DL 03/17/2018 10:41 PM [facility] SODIUM S/P/B 139 136 - 145 MMOL/L 03/17/2018 10:41 PM [facility] POTASSIUM S/P/B 4.3 3.5 - 5.1 MMOL/L 03/17/2018 10:41 PM [facility] CHLORIDE S/P/B 106 100 - 108 MMOL/L 03/17/2018 10:41 PM [facility] CO2 28.4 21 - 32 MMOL/L 03/17/2018 10:41 PM [facility] CALCIUM S/P/B 9.0 8.5 - 10.1 MG/DL 03/17/2018 10:41 PM [facility] BILIRUBIN TOTAL S/P/B 0.4 0.2 - 1.2 MG/DL 03/17/2018 10:41 PM [facility] TOTAL PROTEIN S/P/B 8.1 6.4 - 8.2 G/DL 03/17/2018 10:41 PM [facility] ALBUMIN S/P/B 3.2(L) 3.4 - 5.0 G/DL 03/17/2018 10:41 PM [facility] AST 14(L) 15 - 37 U/L 03/17/2018 10:41 PM [facility] ALT 24 14 - 55 U/L 03/17/2018 10:41 PM [facility] ALKALINE PHOSPHATASE S/P/B 102 50 - 136 U/L 03/17/2018 10:41 PM [facility] ANION GAP 8.9 8 - 20 MMOL/L 03/17/2018 10:41 PM [facility] BUN CREATININE RATIO 19.7 6 - 26 03/17/2018 10:41 PM [facility] A/G RATIO 0.7(L) 1.0 - 2.0 RATIO 03/17/2018 10:41 PM [facility] EGFR NON-AFR. AMER. 68(L) >90 ML/MIN/1.7 3 M2 03/17/2018 10:41 PM [facility] EGFR AFR. AMER. 79(L) >90 ML/MIN/1.7 3 M2 03/17/2018 10:41 PM [facility] Comment: NOTE: eGFR is not calculated for patients <18 years of age. This is an estimated GFR (CKD EPI) and should not be used for calculating drug doses. 03/17/2018 10:0 8 PM RETAIL ASSISTANT Rima Thacker [facility] Final Res ult [facility] [address] [place] [address], [place] [phone] * (ABNORMAL) CBC W/DIFF AUTOMATED (03/17/2018 10:08 PM RETAIL ASSISTANT) WBC 10.2 4.5 - 11.0 x10'3/uL 03/17/2018 10:24 PM [facility] RBC 4.49 4.20 - 5.40 x10'6/uL 03/17/2018 10:24 PM [facility] HGB 12.2 12.0 - 16.0 G/DL 03/17/2018 10:24 PM [facility] HCT 39.8 38.0 - 48.0 % 03/17/2018 10:24 PM [facility] MCV 88.6 80.0 - 94.0 FL 03/17/2018 10:24 PM [facility] MCH 27.2 27.0 - 31.0 PG 03/17/2018 10:24 PM [facility] MCHC 30.7(L) 32.0 - 36.0 G/DL 03/17/2018 10:24 PM [facility] RDW 14.6(H) 11.5 - 14.5 % 03/17/2018 10:24 PM [facility] PLT 317 130 - 400 x10'3/uL 03/17/2018 10:24 PM [facility] MPV 9.8 9.3 - 12.2 FL 03/17/2018 10:24 PM [facility] DIFFERENTIAL TYPE AUTOMATED DIFFERENTIAL 03/17/2018 10:24 PM [facility] NEUTROPHILS % 64.5 % 03/17/2018 10:24 PM [facility] LYMPHOCYTES % 23.6 % 03/17/2018 10:24 PM [facility] MONOCYTES % 7.6 % 03/17/2018 10:24 PM [facility] EOSINOPHILS 3.7 % 03/17/2018 10:24 PM [facility] BASOPHILS 0.4 % 03/17/2018 10:24 PM [facility] IMMATURE GRANS % 0.2(H) 0 % 03/17/20 18 10:24 PM [facility] ABS. NEUTROPHILS TOTAL 6.59 1.80 - 7.70 x10'3/uL 03/17/2018 10:24 PM [facility] ABS. LYMPHOCYTES 2.41 1.00 - 4.80 x10'3/uL 03/17/2018 10:24 PM [facility] ABS. MONOCYTES 0.78 0.24 - 0.86 x10'3/uL 03/17/2018 10:24 PM RETAIL ASSISTANT [facility] ABS. EOSINOPHILS 0.38(H) 0.04 - 0.36 x10'3/uL 03/17/2018 10:24 PM RETAIL ASSISTANT [facility] ABS. BASOPHILS 0.04 0.01 - 0.08 x10'3/uL 03/17/2018 10:24 PM RETAIL ASSISTANT [facility] ABS. IMMATURE GRANULOCYTES 0.02 0.00 - 0.03 x10'3/uL 03/17/2018 10:24 PM RETAIL ASSISTANT [facility] 03/17/2018 10:0 8 PM RETAIL ASSISTANT us Rima Thacker NUT ROASTER HELPER LABORATORY Final Res ult [facility] [address] [place] [address], * ECG 12 lead (03/17/2018 10:02 PM RETAIL ASSISTANT) 03/17/2018 10:0 2 PM RETAIL ASSISTANT Narrative [facility] - 03/18/2018 4:49 AM RETAIL ASSISTANT ?[facility] ? [address] [facility] ? Test Date: ?2018-03-17 Pat Name: ? MOHSEN MARQUES ?Department: ?? 41 ? Room: ? B454 Gender: ? Female ? 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 pch : ?1955 ? Requested By: RIMA THACKER Order Number: [id number] ? Reading MD: ?? Lazaro Givens ? Measurements Intervals ?[place] ? Rate: ? 72 ? P: ?33 NE: ? 128 ?QRS: ?17 QRSD: ? 93 ? T: ?53 QT: ? 365 ? QTc: ?400 ? Interpretive Statements SINUS RHYTHM NONSPECIFIC T-WAVE ABNORMALITY Compared to ECG 08/20/2017 13:15:35 No significant changes Preliminary EKG interpretation by ED Physician Jeremías Jiménez M.D. 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 No ischemic changes CRITICAL ALERT ISSUED ON 03-17-2018 22:09:09 [place] ASSISTANT Rima Thacker NUT ROASTER HELPER ECG ORDERABLES Final Res ult [facility] [address] [place] [address], documented in this encounter Visit Diagnoses Diagnosis ACS (acute coronary syndrome) ([facility])- Primary Intermediate coronary syndrome Shortness of breath Hypertension Unspecified essential hypertension Type 2 diabetes mellitus ([facility]) Type II or unspecified type diabetes mellitus without mention of complication, not stated as uncontrolled LUL (obstructive sleep apnea) Obstructive sleep apnea (adult) (pediatric) RLS (restless legs syndrome) Restless legs syndrome (RLS) History of DVT (deep vein thrombosis) Personal history of venous thrombosis and embolism Epigastric pain Abdominal pain, epigastric documented in this encounter Administered Medications Inactive Administered Medications - up to 3 most recent administrations Medication Order MAR Action Action Date Dose Rate Site exemestane (AROMASIN) tablet 25 mg 25 mg, Oral, Daily, First dose on 03/18/18 at 0900, Until Discontinued, Give after a meal, , Patient's own medication identified by [facility]: JESUS AMATO, YordyD Identified #[id number], Date: 03/18/18 4:49 AM, , STORED IN PATIENT SPECIFIC BIN IN [employer], , * Remember to send medication home with patient at discharge* Given 03/18/2018 5:36 AM RETAIL ASSISTANT 25 mg Generic Radiopharmaceutical 33 millicurie 33 millicurie, Intravenous, IMG once as needed, 33 mCi Myoview Stress, 1 dose, Starting on 03/18/18 at 1149, Until 03/18/18 at 0930 Given 03/18/2018 9:30 AM RETAIL ASSISTANT 33 millicuries hydrocodone-acetaminophen (NORCO) 5-325 MG tablet 1 tablet 1 tablet, Oral, 3 times daily PRN, Moderate pain (Scale 4 - 7), Starting on 03/18/18 at 0600, Until 03/18/18 at 1640, Maximum dose of acetaminophen is 4000 mg from all sources in 24 hours. Given 03/18/2018 1:13 PM RETAIL ASSISTANT 1 tablet insulin glargine (LANTUS) injection 50 Units 50 Units, Subcutaneous, Every morning, First dose on 03/18/18 at 0700, Until Discontinued insulin lispro (HUMALOG) injection 15 Units 15 Units, Subcutaneous, 3 times daily before meals, First dose on 03/18/18 at 0700, Until Discontinued, For sliding scale, activate Sliding Scale Insulin order setPatient also uses sliding scale. Given 03/18/2018 1:14 PM RETAIL ASSISTANT 15 Units oxybutynin (DITROPAN) tablet 5 mg 5 mg, Oral, 2 times daily, First dose on 03/18/18 at 0900, Until Discontinued Given 03/18/2018 11:22 AM RETAIL ASSISTANT 5 mg pantoprazole (PROTONIX) 40 MG injection 1 dose, Starting on 03/18/18 at 0129, Until 03/18/18 at 0134, Created by cabinet override Reconstitute each 40 mg vial with 10 mL normal saline to a final concentration of 4 mg/mL. Administer intravenously over a period of a least 2 minutes. pantoprazole (PROTONIX) injection 40 mg 40 mg, Intravenous, Daily, First dose on 03/18/18 at 0115, Until Discontinued, Reconstitute each 40 mg vial with 10 mL normal saline to a final concentration of 4 mg/mL. Administer intravenously over a period of a least 2 minutes. Given 03/18/2018 1:34 AM RETAIL ASSISTANT 40 mg polyethylene glycol (GLYCOLAX) packet 17 g 17 g, Oral, DAILY PRN, CONSTIPATION, Starting on 03/18/18 at 0349, Until 03/18/18 at 1640, Dissolve powder in 240 mL water regadenoson (LEXISCAN) injection 0.4 mg 0.4 mg, Intravenous, Once, 1 dose, On 03/18/18 at 0930, Administer over 10 seconds Given 03/18/2018 9:22 AM RETAIL ASSISTANT 0.4 mg rivaroxaban (XARELTO) tablet 20 mg 20 mg, Oral, Every evening, First dose on 03/18/18 at 0300, Until Discontinued Given 03/18/2018 3:40 AM RETAIL ASSISTANT 20 mg sodium chloride 0.9% infusion at 100 mL/hr, Intravenous, Continuous, Starting on 03/18/18 at 0300, Until 03/18/18 at 1640 New Bag 03/18/2018 3:40 AM RETAIL ASSISTANT 100 mL/hr documented in this encounter Active and Recently Administered Medications Times are shown in RETAIL ASSISTANT. Scheduled Medication Order 03/16/2018 03/17/2018 03/18/2018 exemestane (AROMASIN) tablet 25 mg 25 mg, Oral, Daily, First dose on 03/18/18 at 0900, Until Discontinued, Give after a meal, , Patient's own medication identified by [facility]: JESUS AMATO, YordyD Identified #[id number], Date: 03/18/18 4:49 AM, , STORED IN PATIENT SPECIFIC BIN IN [employer], , * Remember to send medication home with patient at discharge* 0536 (Given - Provid er: Sharan Wong RN) insulin glargine (LANTUS) injection 50 Units 50 Units, Subcutaneous, Every morning, First dose on 03/18/18 at 0700, Until Discontinued 0800 (Not Given - Pr ovider: Dannielle Hernández RN - Reason: Patient not available) insulin lispro (HUMALOG) injection 15 Units 15 Units, Subcutaneous, 3 times daily before meals, First dose on 03/18/18 at 0700, Until Discontinued, For sliding scale, activate Sliding Scale Insulin order setPatient also uses sliding scale. 0730 (Not Given - Pr ovider: Dannielle Hernández RN - Reason: NPO)1314 (Given - Provider: Dannielle Hernández RN)1600 (Canceled Entry - Provider: Automatic Discharge Provider - Comment: Automatically canceled at discontinue of medication order) oxybutynin (DITROPAN) tablet 5 mg 5 mg, Oral, 2 times daily, First dose on 03/18/18 at 0900, Until Discontinued 1122 (Given - Provid er: Dannielle Hernández RN) pantoprazole (PROTONIX) injection 40 mg 40 mg, Intravenous, Daily, First dose on 03/18/18 at 0115, Until Discontinued, Reconstitute each 40 mg vial with 10 mL normal saline to a final concentration of 4 mg/mL. Administer intravenously over a period of a least 2 minutes. 0134 (Given - Provid er: Marin Brownlee RN) regadenoson (LEXISCAN) injection 0.4 mg (COMPLETED) 0.4 mg, Intravenous, Once, 1 dose, On 03/18/18 at 0930, Administer over 10 seconds 0922 (Given - Provid er: Velma Doan RN) rivaroxaban (XARELTO) tablet 20 mg 20 mg, Oral, Every evening, First dose on 03/18/18 at 0300, Until Discontinued 0340 (Given - Provid er: Sharan Wong RN) ropinirole (REQUIP) tablet 5 mg 5 mg, Oral, Nightly at bedtime, First dose on 03/18/18 at 0300, Until Discontinued 0251 (Not Given - Pr ovider: Sharan Wong RN - Reason: Patient already took) Continuous Medication Order 03/16/2018 03/17/2018 03/18/2018 sodium chloride 0.9% infusion at 100 mL/hr, Intravenous, Continuous, Starting on 03/18/18 at 0300, Until 03/18/18 at 1640 0340 ([facility] ider: Sharan Wong RN) PRN Medication Order 03/16/2018 03/17/2018 03/18/2018 acetaminophen (TYLENOL) tablet 650 mg 650 mg, Oral, Every 4 hours PRN, Mild pain (Scale 1 - 3), Starting on 03/18/18 at 0242, Until 03/18/18 at 1640, Maximum dose of acetaminophen is 4000 mg from all sources in 24 hours. albuterol sulfate HFA 108 (90 Base) MCG/ACT inhaler 2 puff 2 puff, Inhalation, Every 4 hours PRN, Wheezing, Starting on 03/18/18 at 0242, Until 03/18/18 at 1640 Generic Radiopharmaceutical 33 millicurie (COMPLETED) 33 millicurie, Intravenous, IMG once as needed, 33 mCi Myoview Stress, 1 dose, Starting on 03/18/18 at 1149, Until 03/18/18 at 0930 0930 (Given - Provid er: Gil Noyola, RTR) guaifenesin-codeine (GUAIFENESIN AC) 100-10 MG/5ML solution 5 mL 5 mL, Oral, Every 4 hours PRN, Congestion, Starting on 03/18/18 at 0242, Until 03/18/18 at 1640 hydrocodone-acetaminophen (NORCO) 5-325 MG tablet 1 tablet 1 tablet, Oral, 3 times daily PRN, Moderate pain (Scale 4 - 7), Starting on 03/18/18 at 0600, Until 03/18/18 at 1640, Maximum dose of acetaminophen is 4000 mg from all sources in 24 hours. 1313 (Given - Provid er: Dannielle Hernández RN) ondansetron (ZOFRAN) injection 4 mg 4 mg, Intravenous, Every 6 hours PRN, Nausea, Vomiting, Starting on 03/18/18 at 0242, Until 03/18/18 at 1640 ondansetron (ZOFRAN-ODT) disintegrating tablet 4 mg 4 mg, Oral, Every 8 hours PRN, Nausea, Starting on 03/18/18 at 0242, Until 03/18/18 at 1640 polyethylene glycol (GLYCOLAX) packet 17 g 17 g, Oral, DAILY PRN, CONSTIPATION, Starting on 03/18/18 at 0349, Until 03/18/18 at 1640, Dissolve powder in 240 mL water documented in this encounter Additional Health Concerns Infection Onset Date Last Indicated Resolved Time MRSA Comment:mrsa nares pos. 02/201802/03/2017 02/03/2017 09/01/19 19 8:40 AM CDT documented as of this encounter Care Teams Aquatic Ecologist Relationship Specialty Start Date End Date Gerardo Hoffman MD [address] [facility] [address] [place] [address] PCP - General FAMILY PRACTICE 08/20/17 Meena Bansal MD [address] [facility] [address] [place] [address] Hanna Block Chopper Hand CARDIOVASCULAR DISEASE 04/24/16 documented as of this encounter
--- OUTSIDE RECORDS SUMMARY | 2024-04-26 02:42 | XMS_ITS | Encounter Summary ---
Author Organization [facility] Address [address] [place] [address]. [place] [address] [place] [address] Care Team Providers Care Air Conditioning Service Technician Name Role Phone Lavonne Ram MD Primary Care Provider [phone] Meena Bansal MD Unavailable [phone] , Generic Conversion Primary Care Provider Unavailable Encounter Details Date Type Department Care Team (Late st Contact Info) Description 08/17/2011 Abstract [place] [address] Hannah Yi MD [address] [place] [id number] Social History Tobacco Use Types Packs/Day Years Used Date Smoking Tobacco: Never Assessed Comments Unknown Sex and Gender Information Value Date Recorded Sex Assigned at Female 09/06/2020 12:50 AM CDT Legal Sex Female 10:47 AM CDT Gender Identity Female 09/06/2020 12:50 AM CDT Sexual Orientation Straight 03/18/2018 3: 01 AM PERCH MENDER documented as of this encounter Plan of Treatment Not on file documented as of this encounter Visit Diagnoses Diagnosis Major depressive disorder, single episode, moderate (CMS/HCC [facility]/HCC) Major depressive disorder, single episode, moderate documented in this encounter Care Teams Air Conditioning Service Technician Relationship Specialty Start Date End Date Lavonne Ram MD [address] [place] [address] PCP - General FAMILY PRACTICE 04/24/16 08/19/17 Johnathon Ku MD PCP - General 08/17/11 04/23/16 Meena Bansal MD [address] [address] [place] Adapted Physical Education Specialist CARDIOVASCULAR DISEASE 04/24/16 documented as of this encounter
--- OUTSIDE RECORDS SUMMARY | 2024-04-26 02:42 | XMS_ITS | Encounter Summary ---
Author Organization [facility] Address [address] [place] [address]. [place] [address] [place] [address] Care Team Providers Care Inspection Clerk Name Role Phone Lavonne Ram MD Primary Care Provider [phone] Meena Bansal MD Unavailable [phone] Reason for Referral * (Emergency) - Closed Specialty Diagnoses / Procedures Referred By Contac t Referred To Contact Procedures CT ABD+PEL W CON Ishmael Lane MD Referral ID Status Reason Start Date Expiration Date Visits Re quested Visits Authorized [id number] Closed 03/23/2017 04/22/2018 1 1 HOME BABY SITTER Reason for Visit * Reason Comments Kidney Problem pt c/o blood in urin e for the past few days. pt c/o bilateral flank pain and has hx of uti and kidney stones. Encounter Details Date Type Department Care Team (Late st Contact Info) Description 03/23/2017 12:55 AM IN HOME BABY SITTER - 03/23/2017 6:19 AM IN HOME BABY SITTER Emergency [facility] [place] [address] MD Kidney Problem (pt c/o blood in urine for the past few days. pt c/o bilateral flank pain and has hx of uti and kidney stones.) Discharge Disposition: Home or Self Care (Routine [...] Sexual Orientation Straight 03/18/2018 3: 01 AM IN HOME BABY SITTER documented as of this encounter Last Filed Vital Signs Vital Sign Reading Time Taken Comments Blood Pressure 111/77 03/23/2017 2:52 AM IN HOME BABY SITTER Pulse 79 03/23/2017 2:52 AM IN HOME BABY SITTER Temperature 36.9 ??C (98.4 ??F) 03/22/2017 1 1:48 PM IN HOME BABY SITTER Respiratory Rate 18 03/23/2017 2:52 AM IN HOME BABY SITTER Oxygen Saturation 99% 03/22/2017 11: 48 PM IN HOME BABY SITTER Inhaled Oxygen Concentration - - Weight 131.1 kg (289 lb 0.4 oz) 017 11:48 PM IN HOME BABY SITTER Height 154.9 cm (5' 1 ) 03/22/2017 11:4 8 PM IN HOME BABY SITTER Body Mass Index 54.61 03/22/2017 11:48 PM IN HOME BABY SITTER documented in this encounter Discharge Instructions * Discharge Instructions* Ishmael Lane MD - 03/23/2017 4:52 AM IN HOME BABY SITTER Images from the original note were not included. Kidney Stones Discharge Instructions About this topic The urinary tract is made up of the kidney, ureters, bladder, and urethra. The kidneys make urine and it drains down into tubes called ureters. These ureters are connected to the bladder. The bladderthen squeezes out the urine and it exits the body through the urethra. Sometimes, salts and minerals in your urine build up and form stones. The stones are hard and can get stuck on their way out of the body. Some stones are too large and block the flow of urine. Otherscause bleeding and pain. They may damage the kidney. Treatment depends on the type of stone, size of the stone, and where it is along your urinary tract. Your doctor may send the stone to a lab to learn more about it and how to best treat you. What care is needed at home? ?? Ask your doctor what you need to do when you go home. Make sure you ask questions if you do not understand what the doctor says. This way you will know what you need to do. ?? Your doctor may tell you to watch your fluid intake. You may be asked to drink 8 to 10 glasses of water each day or more. This may help you pass any stones. ?? Your doctor may ask you to use a filter to strain your urine. The filter catches the stones. What follow-up care is needed? ?? Your doctor may ask you to make visits to the office to check on your progress. Be sure to keep these visits. ?? Your doctor will tell you if other tests are needed. ?? Your doctor may send you to a kidney specialist. This kind of doctor is called a urologist. What drugs may be needed? The doctor may order drugs to: ?? Help with pain ?? Prevent infection ?? Help flush out kidney stones ?? Prevent kidney stones Will physical activity be limited? You may have to limit your activity. Talk to your doctor about the right amount of activity for you. What changes to diet are needed? ?? Talk to your doctor or dietitian about your personal diet plan. Ask if there are foods you should eat more or less of, based on the kind of stone you had. ?? Avoid caffeinated drinks that can overwork your urinary tract. What problems could happen? ?? Kidney infection ?? Kidney damage ?? Block in the urinary system ?? High blood pressure What can be done to prevent this health problem? ?? Prevent or treat urinary tract infections. ?? Drink lots of water during the day. When you have less fluid in your body, urine becomes concentrated. This increases your chance of kidney stones. ?? Take drugs as ordered by your doctor. ?? Limit foods or drugs that may cause kidney stones. When do I need to call the doctor? ?? Signs of infection. These include a fever of 100.4??F (38??C) or higher, chills, pain with passing urine. ?? Very bad pain in your back or side that will not go away ?? Throwing up ?? Urine that smells bad, looks cloudy, or has blood in it ?? No urine for more than 6 hours ?? Very bad pain in your chest, shoulder, or belly ?? More swelling of your ankles, legs, and hands or tightness with your shoes or rings ?? You are not feeling better in [...] condition. ?? I can tell you what changes I need to make with my diet or drugs. ?? I can tell you what I will do if I have very bad pain in my back or side. Where can I learn more? [employer] http://www.urologyhealth.org/urologic-conditions/kidney-stones National Kidney and Urologic Diseases Information Clearinghouse http://kidney.niddk.nih.gov/kudiseases/pubs/stones_ez/ Last Reviewed Date 2014-09-29 Consumer Information Use and Disclaimer This information [...] is right for you. Copyright Copyright ?? 2017 [employer] and its affiliates and/or licensors. All rights reserved. HOME BABY SITTER documented in this encounter Medications at Time of Discharge hydrocodone-aceta minophen 5-325 MG tablet Take 1 tablet by mouth every 8 (eight) hours as needed for Pain. 20 tablet 03/23/2017 08/20/2017 sulfamethoxazole- trimethoprim (BACTRIM DS) 800-160 MG tablet Take 1 tablet by mouth 2 (two) times daily. 20 tablet 03/23/2017 08/20/2017 documented as of this encounter ED Notes * Jennifer Metzger RN - 03/23/2017 6:15 AM CST Patient's spouse picked her up. This RN took patient to car and discussed discharge instructions with both patient and spouse. 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 Tonight when I went pee it was like pure blood. Pt states pain also has moved to the front of her stomach. Pt reports bright red blood. Denies N/V/D. HOME BABY SITTER * Ishmael Lane MD - 03/23/2017 2:20 AM CST Chief Complaint Chief Complaint Patient presents with ??? Kidney Problem pt c/o blood in urine for the past few days. pt c/o bilateral flank pain and has hx of uti and kidney stones. History of Present Illness Patient is a 61-year-old female presenting with kidney problem and abdominal pain. Kidney Problem Associated symptoms: abdominal pain Associated symptoms: no chest pain, no congestion, no diarrhea, no fatigue, no fever, no headaches,no myalgias, no nausea, no shortness of breath, no sore throat and no wheezing Abdominal Pain Pain location: L flank Pain quality: aching and cramping Pain radiates to: LLQ Pain severity: Moderate Onset quality: Gradual Timing: Constant Progression: Worsening Context: not alcohol use, not awakening from sleep, not diet changes, not eating, not laxative use,not medication withdrawal, not recent illness, not recent sexual activity, not recent travel, not retching, not suspicious food intake and not trauma Relieved by: Nothing Worsened by: Nothing Ineffective treatments: None tried Associated symptoms: dysuria and hematuria Associated symptoms: no anorexia, no belching, no chest pain, no chills, no constipation, no diarrhea, no fatigue, no fever, no flatus, no melena, no nausea, no shortness of breath, no sore throat, no vaginal bleeding and no vaginal discharge Medical History ALLERGIES: Allergies Allergen Reactions ??? Cephalosporins Anaphylaxis ??? Oxycodone Vomiting ??? Reglan [Metoclopramide] Hyperactive MEDICATIONS: Prior to Admission medications Medication Sig Start Date End Date Taking? Authorizing Provider hydrocodone-acetaminophen 5-325 MG tablet Take 1 tablet by mouth every 8 (eight) hours as needed for Pain. 03/23/[address] MD sulfamethoxazole-trimethoprim (BACTRIM DS) 800-160 MG tablet Take 1 tablet by mouth 2 (two) times daily. 03/23/[address] MD PAST MEDICAL HISTORY: Past Medical History: [...] ??? Cancer Brother SOCIAL HISTORY: Social History Substance Use Topics ??? Smoking status: Former Smoker Quit date: 03/23/1977 ??? Smokeless tobacco: Never Used ??? Alcohol use No Review of Systems Review of Systems Constitutional: Negative for chills, fatigue and fever. HENT: Negative for congestion and sore throat. Eyes: Negative for discharge. Respiratory: Negative for chest tightness, shortness of breath and wheezing. Cardiovascular: Negative for chest pain, palpitations and leg swelling. Gastrointestinal: Positive for abdominal pain. Negative for anorexia, constipation, diarrhea, flatus, melena and nausea. Genitourinary: Positive for dysuria and hematuria. Negative for vaginal bleeding and vaginal discharge. Musculoskeletal: Negative for arthralgias and myalgias. Neurological: Negative for speech difficulty and headaches. Psychiatric/Behavioral: Negative for agitation, confusion and suicidal ideas. All other systems reviewed and are negative. Physical Exam Filed Vitals: 03/22/17 2348 03/23/17 0252 BP: 132/83 111/77 Pulse: 87 79 Resp: 18 18 Temp: 98.4 ??F (36.9 ??C) TempSrc: Oral SpO2: 99% Weight: 131.1 kg (289 lb 0.4 oz) Height: 5' 1 (1.549 m) Physical Exam Constitutional: She is oriented to person, place, and time. She appears well- developed and well-nourished. HENT: Head: Normocephalic and atraumatic. Nose: Nose normal. Mouth/Throat: Oropharynx is clear and moist. Eyes: Conjunctivae and EOM are normal. Pupils are equal, round, and reactive to light. Neck: Normal range of motion. Neck supple. Cardiovascular: Normal rate, regular rhythm and normal heart sounds. No murmur heard. Pulmonary/Chest: Effort normal and breath sounds normal. She has no wheezes. Abdominal: Soft. Bowel sounds are normal. There is tenderness. There is guarding. Musculoskeletal: Normal range of motion. She exhibits no edema. Neurological: She is alert and oriented to person, place, and time. She has normal reflexes. No cranial nerve deficit. Coordination normal. Skin: Skin is warm and dry. No rash noted. Psychiatric: She has a normal mood and affect. Her behavior is normal. Judgment and thought contentnormal. Nursing note and vitals reviewed. 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1955 Requested By: ISHMAEL LANE Order Number: [id number] Reading MD: Measurements Intervals Fidelity Rate: 82 P: 4 LA: 121 QRS: -3 QRSD: 84 T: 56 QT: 373 QTc: 437 Interpretive Statements SINUS RHYTHM Compared to ECG 11/01/2016 22:55:19 Ventricular premature complex(es) no longer present LABORATORY STUDIES: Results for orders placed or performed during the hospital encounter of 03/23/17 URINALYSIS WI REFLEX TO CULTURE Result Value Ref Range Specimen Type URINE CLEAN CATCH COLOR YELLOW TRANSPARENCY CLOUDY Specific [place] (U) 1.019 1.001 - 1.030 U PH 6.0 5.0 - 9.0 LEUKOCYTES NEGATIVE NEGATIVE NITRITES NEGATIVE NEGATIVE PROTEIN, URINE 30 (H) <30 MG/DL URINE GLUCOSE NEGATIVE NEGATIVE MG/DL U KETONES NEGATIVE NEGATIVE MG/DL UROBILINOGEN NEGATIVE NEGATIVE MG/DL Urine Bilirubin NEGATIVE NEGATIVE MG/DL BLOOD LARGE (A) NEGATIVE CULTURE & SENSITIVITY INDICATED? CULTURE IS NOT INDICATED WBC/HPF <1 <6 /HPF RBC/HPF >100 (H) <6 /HPF CBC W/DIFF AUTOMATED Result Value Ref Range WBC 10.5 4.8 - 10.8 x10'3/uL RBC 4.66 4.20 - 5.40 x10'6/uL HGB 13.3 12.0 - 16.0 G/DL HCT 42.1 38.0 - 48.0 % MCV 90.3 81.0 - 99.0 FL MCH 28.5 27.0 - 31.0 PG MCHC 31.6 (L) 32.0 - 36.0 G/DL RDW 14.6 (H) 11.5 - 14.5 % PLT 345 130 - 400 x10'3/uL MPV 9.8 9.3 - 12.2 FL NEUTROPHILS 65.6 (H) 43.0 - 65.0 % LYMPHOCYTES 22.5 20.0 - 46.0 % MONOCYTES 7.7 5.0 - 12.0 % EOSINOPHILS 3.5 (H) 1.0 - 3.0 % BASOPHILS 0.4 0.0 - 1.0 % IMMATURE GRANS 0.3 0.0 - 1.0 % COMPREHENSIVE METABOLIC PANEL Result Value Ref Range GLUCOSE 178 (H) 70 - 99 MG/DL BUN 17 7 - 18 MG/DL CREATININE 0.85 0.55 - 1.02 MG/DL SODIUM 137 136 - 145 MMOL/L POTASSIUM 4.3 3.5 - 5.1 MMOL/L CHLORIDE 104 100 - 108 MMOL/L CO2 28.3 21 - 32 MMOL/L CALCIUM 9.9 8.5 - 10.1 MG/DL TOTAL BILIRUBIN 0.4 0.2 - 1.2 MG/DL TOTAL PROTEIN 9.1 (H) 6.4 - 8.2 G/DL ALBUMIN 3.5 3.4 - 5.0 G/DL AST 16 15 - 37 U/L ALT 23 14 - 55 U/L ALK PHOS 76 50 - 136 U/L ANION GAP 9.0 8 - 20 MMOL/L BUN CREATININE RATIO 20.0 6 - 26 A/G RATIO 0.6 (L) 1.0 - 2.0 RATIO eGFR Non-Afr. Amer. >60 >60 ML/MIN/1.73 M2 eGFR Afr. Amer. >60 >60 ML/MIN/1.73 M2 PROTIME/INR, VENOUS Result Value Ref Range Protime 15.7 (H) 9.6 - 12.2 SEC INR 1.4 CK (CPK) Result Value Ref Range CPK 108 21 - 215 U/L PARTIAL THROMBOPLASTIN TIME,PTT Result Value Ref Range PTT 38.4 (H) 25.5 - 37.6 SEC TROPONIN, QUANT Result Value Ref Range TROPONIN I <0.015 <0.045 ng/mL. AMYLASE Result Value Ref Range AMYLASE 47 25 - 115 UNITS/L LIPASE Result Value Ref Range LIPASE 192 73 - 393 UNITS/L IMAGING STUDIES CT ABD+PEL W CON (Results Pending) ED Course / Medical Decision Making Clinical Impression Kidney stone (Primary) Disposition: Discharge Ishmael Lane MD 03/23/17 0452 HOME BABY SITTER * Heaven Romero RN - 03/23/2017 1:00 AM CST PT REPORTING INCREASE IN BLOOD OUTPUT. PT STATING SHE IS NOW UNSURE IF IT IS IN HER URINE OR IF IT IS A VAGINAL BLEED. HOME BABY SITTER documented in this encounter Plan of Treatment Pending Results Name Type Priority Associated Diagnoses Date /Time ECG 12 lead EKG-NonRad STAT 03/23/2017 2: 32 AM IN HOME BABY SITTER documented as of this encounter Procedures Procedure Name Priority Date/Time Associated Diagnosis Comments CT ABD+PEL W CON STAT 03/23/2017 3:40 AM IN HOME BABY SITTER TROPONIN, QUANT STAT 03/23/2017 2:55 AM IN HOME BABY SITTER AMYLASE STAT 03/23/2017 2:55 AM IN HOME BABY SITTER LIPASE STAT 03/23/2017 2:55 AM IN HOME BABY SITTER ECG 12-LEAD STAT 03/23/2017 2:32 AM IN HOME BABY SITTER Procedure Note - 03/23/2017 2:32 AM CSTThis note is in progress. 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1955 Requested By: ISHMAEL LANE Order Number: [id number] Reading MD: Measurements Intervals Fidelity Rate: 82 P: 4 LA: 121 QRS: -3 QRSD: 84 T: 56 QT: 373 QTc: 437 Interpretive Statements SINUS RHYTHM Compared to ECG 11/01/2016 22:55:19 Ventricular premature complex(es) no longer present URINALYSIS WI REFLEX TO CULTURE STAT 03/23/2017 1:18 AM IN HOME BABY SITTER PARTIAL THROMBOPLASTIN TIME,PTT STAT 03/23/2017 1:18 AM IN HOME BABY SITTER PROTHROMBIN TIME, VENOUS STAT 03/23/2017 1:18 AM IN HOME BABY SITTER COMPREHENSIVE METABOLIC PANEL STAT 03/23/2017 1:18 AM IN HOME BABY SITTER CBC W/DIFF AUTOMATED STAT 03/23/2017 1:18 AM IN HOME BABY SITTER CK (CPK) STAT 03/23/2017 1:18 AM IN HOME BABY SITTER documented in this encounter Results * CT ABD+PEL W CON (03/23/2017 3:40 AM IN HOME BABY SITTER) Anatomical Region Laterality Modality Abdomen Computed Tomogra phy 03/23/2017 7:00 AM IN HOME BABY SITTER Impressions 03/23/2017 7:03 AM IN HOME BABY SITTER ===== IMPRESSION: ===== 1. ??No acute abdominal or pelvic abnormalities. 2. ??No hydronephrosis or obstructive uropathy. Multiple nonobstructing bilateral renal pelvic calcifications. 3. ??Postsurgical changes of anterior hernia mesh repair and cholecystectomy 4. ??Symmetric sacroiliitis similar to prior exam 5. ??Diverticular disease with no evidence of diverticulitis Narrative 03/23/2017 7:03 AM IN HOME BABY SITTER EXAMINATION: CT Abdomen and Pelvis with contrast EXAM DATE/TIME: 03/23/2017 11:55 PM REASON FOR EXAM: ??Abdominal pain ? Multiple kidney stones with prior lithotripsy. Left-sided flank pain in the lower abdomen. COMPARISON: 12/05/2016 CT abdomen and pelvis TECHNIQUE: Axial CT images of the abdomen and pelvis are obtained following uneventful intravenous administration of 100 mL Isovue-300 through the right arm. Subsequent coronal and sagittal reformatted sequences are created for evaluation. ??Automated exposure control was utilized for dose reduction. FINDINGS: Minimal atelectasis in the lung bases which are otherwise clear. No pleural effusion. Heart size normal. No pericardial effusion. The liver and spleen are normal in size and surface contour. No abnormal enhancing hepatic lesions. Cholecystectomy clips. Pancreas and adrenal glands are unremarkable. Kidneys demonstrate symmetric uptake and excretion of contrast agent. No hydronephrosis or obstructive uropathy. Nonobstructing bilateral renal pelvic calcifications are noted. Tiny cyst in the lateral right renal parenchyma. No perinephric stranding. Abdominal aorta normal in caliber throughout. Bowel is normal in caliber throughout. No evidence of bowel obstruction. Postsurgical changes of anterior abdominal wall from prior hernia mesh repair. Minimal diverticular disease with no evidence of diverticulitis. Bladder contours unremarkable. Uterus and adnexal structures within normal limits. Bone level imaging shows no acute osseous abnormalities. Bilateral symmetric sacroiliitis. Procedure Note Jayro Cormier MD - 03/23/2017 EXAMINATION: CT Abdomen and Pelvis with contrast EXAM DATE/TIME: 03/23/2017 11:55 PM REASON FOR EXAM: Abdominal pain Multiple kidney stones with prior lithotripsy. Left-sided flank pain inthe lower abdomen. COMPARISON: 12/05/2016 CT abdomen and pelvis TECHNIQUE: Axial CT images of the abdomen and pelvis are obtainedfollowing uneventful intravenous administration of 100 mL Isovue-300 through theright arm. Subsequent coronal and sagittal reformatted sequences are createdfor evaluation. Automated exposure control was utilized for dose reduction. FINDINGS: Minimal atelectasis in the lung bases which are otherwise clear.No pleural effusion. Heart size normal. No pericardial effusion. The liver and spleen are normal in size and surface contour. No abnormal enhancing hepatic lesions. Cholecystectomy clips. Pancreas and adrenalglands are unremarkable. Kidneys demonstrate symmetric uptake and excretion ofcontrast agent. No hydronephrosis or obstructive uropathy. Nonobstructing bilateralrenal pelvic calcifications are noted. Tiny cyst in the lateral right renal parenchyma. No perinephric stranding. Abdominal aorta normal in caliber throughout. Bowel is normal in caliber throughout. No evidence of bowel obstruction. Postsurgical changes of anterior abdominal wall from priorhernia mesh repair. Minimal diverticular disease with no evidence ofdiverticulitis. Bladder contours unremarkable. Uterus and adnexal structures withinnormal limits. Bone level imaging shows no acute osseous abnormalities.Bilateral symmetric sacroiliitis. ===== IMPRESSION: ===== 1. No acute abdominal or pelvic abnormalities. 2. No hydronephrosis or obstructive uropathy. Multiple nonobstructingbilateral renal pelvic calcifications. 3. Postsurgical changes of anterior hernia mesh repair andcholecystectomy 4. Symmetric sacroiliitis similar to prior exam 5. Diverticular disease with no evidence of diverticulitis Ishmael Lane MD CT Final Resu lt * LIPASE (03/23/2017 2:55 AM IN HOME BABY SITTER) LIPASE 192 73 - 393 UNITS/L 03/23/2017 3:27 AM IN HOME BABY SITTER [facility] 03/23/2017 2:55 AM IN HOME BABY SITTER us Ishmael Lane MD LABORATORY Final Resu lt [facility] [address] [place] [address], * AMYLASE (03/23/2017 2:55 AM IN HOME BABY SITTER) AMYLASE S/P/B 47 25 - 115 UNITS/L 03/23/2017 3:27 AM IN HOME BABY SITTER [facility] 03/23/2017 2:55 AM IN HOME BABY SITTER Ishmael Lane MD LABORATORY Final Resu lt Performing Organization Address City/[facility]/ZIP Co de Phone Number [facility] [address] [place] [address], * TROPONIN, QUANT (03/23/2017 2:55 AM IN HOME BABY SITTER) TROPONIN I <0.015 <0.045 ng/mL. 03/23/2017 3:27 AM IN HOME BABY SITTER [facility] Comment: HIGH DOSES OF BIOTIN MAY INTERFERE WITH THIS TEST RESULT. CORRELATION TO CLINICAL HISTORY AND PRESENTATION RECOMMENDED. 03/23/2017 2:55 AM IN HOME BABY SITTER Ishmael Lane MD LABORATORY Final Resu lt Performing Organization Address City/[facility]/ZIP Co de Phone Number [facility] [address] [place] [address], * (ABNORMAL) PARTIAL THROMBOPLASTIN TIME,PTT (03/23/2017 1:18 AM IN HOME BABY SITTER) PTT 38.4(H) 25.5 - 37.6 SEC 03/23/2017 2:07 AM IN HOME BABY SITTER [facility] 03/23/2017 1:18 AM IN HOME BABY SITTER Melvin Ray MD LABORATORY Final Resu lt Performing Organization Address City/[facility]/ZIP Co de Phone Number [facility] [address] [place] [address], [place] [phone] * CK (CPK) (03/23/2017 1:18 AM IN HOME BABY SITTER) CPK 108 21 - 215 U/L 03/23/2017 2:16 AM IN HOME BABY SITTER [facility] 03/23/2017 1:18 AM IN HOME BABY SITTER Melvin Ray MD LABORATORY Final Resu lt Performing Organization Address [facility] Co de Phone Number [facility] [address] [place] [address], [place] [phone] * (ABNORMAL) PROTIME/INR, VENOUS (03/23/2017 1:18 AM IN HOME BABY SITTER) PROTIME 15.7(H) 9.6 - 12.2 SEC 03/23/2017 2:07 AM IN HOME BABY SITTER [facility] INR 1.4 03/23/2017 2:07 AM IN HOME BABY SITTER [facility] Comment: Recommended INR Therapeutic Goals: ??2.0-3.0 Routine Therapy ??2.5-3.5 Mechanical Prosthetic Valves (High Risk) ??3.0-4.0 Acute KS (to prevent Systemic Embolism) The INR is used only for patients on stable oral anticoagulant therapy. It makes no significant contribution to the diagnosis or treatment of patients whose Protime is prolonged for other reasons. 03/23/2017 1:18 AM IN HOME BABY SITTER Melvin Ray MD LABORATORY Final Resu lt Performing Organization Address City/[facility]/ZIP Co de Phone Number [facility] [address] [place] [address], [place] [phone] * (ABNORMAL) COMPREHENSIVE METABOLIC PANEL (03/23/2017 1:18 AM [facility]) [facility] GLUCOSE 178(H) 70 - 99 MG/DL 03/23/2017 2:16 AM [facility] BUN 17 7 - 18 MG/DL 03/23/2017 2:16 AM [facility] CREATININE S/P/B 0.85 0.55 - 1.02 MG/DL 03/23/2017 2:16 AM [facility] SODIUM S/P/B 137 136 - 145 MMOL/L 03/23/2017 2:16 AM [facility] POTASSIUM S/P/B 4.3 3.5 - 5.1 MMOL/L 03/23/2017 2:16 AM [facility] CHLORIDE S/P/B 104 100 - 108 MMOL/L 03/23/2017 2:16 AM [facility] CO2 28.3 21 - 32 MMOL/L 03/23/2017 2:16 AM [facility] CALCIUM S/P/B 9.9 8.5 - 10.1 MG/DL 03/23/2017 2:16 AM [facility] BILIRUBIN TOTAL S/P/B 0.4 0.2 - 1.2 MG/DL 03/23/2017 2:16 AM [facility] TOTAL PROTEIN S/P/B 9.1(H) 6.4 - 8.2 G/DL 03/23/2017 2:16 AM [facility] ALBUMIN S/P/B 3.5 3.4 - 5.0 G/DL 03/23/2017 2:16 AM [facility] AST 16 15 - 37 U/L 03/23/2017 2:16 AM [facility] ALT 23 14 - 55 U/L 03/23/2017 2:16 AM [facility] ALKALINE PHOSPHATASE S/P/B 76 50 - 136 U/L 03/23/2017 2:16 AM [facility] ANION GAP 9.0 8 - 20 MMOL/L 03/23/2017 2:16 AM [facility] BUN CREATININE RATIO 20.0 6 - 26 03/23/2017 2:16 AM [facility] A/G RATIO 0.6(L) 1.0 - 2.0 RATIO 03/23/2017 2:16 AM [facility] EGFR NON-AFR. AMER. >60 >60 ML/MIN/1.7 3 M2 03/23/2017 2:16 AM [facility] EGFR AFR. AMER. >60 >60 ML/MIN/1.7 3 M2 03/23/2017 2:16 AM [facility] Comment: NOTE: eGFR is not calculated for patients <18 years of age. This is an estimated GFR (CKD EPI) and should not be used for calculating drug doses. 03/23/2017 1:18 AM [facility] us Melvin Ray MD LABORATORY Final Resu lt [facility] [address] [place] [address], * (ABNORMAL) CBC W/DIFF AUTOMATED (03/23/2017 1:18 AM [facility]) WBC 10.5 4.8 - 10.8 x10'3/uL 03/23/2017 1:52 AM [facility] RBC 4.66 4.20 - 5.40 x10'6/uL 03/23/2017 1:52 AM [facility] HGB 13.3 12.0 - 16.0 G/DL 03/23/2017 1:52 AM [facility] HCT 42.1 38.0 - 48.0 % 03/23/2017 1:52 AM [facility] MCV 90.3 81.0 - 99.0 FL 03/23/2017 1:52 AM [facility] MCH 28.5 27.0 - 31.0 PG 03/23/2017 1:52 AM [facility] MCHC 31.6(L) 32.0 - 36.0 G/DL 03/23/2017 1:52 AM [facility] RDW 14.6(H) 11.5 - 14.5 % 03/23/2017 1:52 AM [facility] PLT 345 130 - 400 x10'3/uL 03/23/2017 1:52 AM [facility] MPV 9.8 9.3 - 12.2 FL 03/23/2017 1:52 AM [facility] NEUTROPHILS % 65.6(H) 43.0 - 65.0 % 03/23/2017 1:52 AM [facility] LYMPHOCYTES % 22.5 20.0 - 46.0 % 03/23/2017 1:52 AM [facility] MONOCYTES % 7.7 5.0 - 12.0 % 03/23/2017 1:52 AM [facility] EOSINOPHILS 3.5(H) 1.0 - 3.0 % 03/23/2017 1:52 AM [facility] BASOPHILS 0.4 0.0 - 1.0 % 03/23/2017 1:52 AM [facility] IMMATURE GRANS % 0.3 0.0 - 1.0 % 03/23/2017 1:52 AM [facility] 03/23/2017 1:18 AM [facility] us Melvin Ray MD LABORATORY Final Resu lt [facility] [address] [place] [address], [place] [phone] * (ABNORMAL) URINALYSIS WI REFLEX TO CULTURE (03/23/2017 1:18 AM [facility]) SPECIMEN TYPE URINE CLEAN CATCH 03/23/2017 1:05 AM [facility] COLOR (U) YELLOW 03/23/2017 2:03 AM [facility] TRANSPARENCY CLOUDY 03/23/2017 2:03 AM [facility] SPECIFIC GRAVITY (U) 1.019 1.001 - 1.030 03/23/2017 2:03 AM [facility] U PH 6.0 5.0 - 9.0 03/23/2017 2:03 AM [facility] LEUKOCYTES (U) NEGATIVE NEGATIVE 03/23/2017 2:03 AM [facility] NITRITES NEGATIVE NEGATIVE 03/23/2017 2:03 AM [facility] PROTEIN (U) 30(H) <30 MG/DL 03/23/2017 2:03 AM [facility] URINE GLUCOSE NEGATIVE NEGATIVE MG/DL 03/23/2017 2:03 AM [facility] KETONES MG/DL (U) NEGATIVE NEGATIVE MG/DL 03/23/2017 2:03 AM [facility] UROBILINOGEN NEGATIVE NEGATIVE MG/DL 03/23/2017 2:03 AM [facility] BILIRUBIN (U) NEGATIVE NEGATIVE MG/DL 03/23/2017 2:03 AM [facility] BLOOD (U) LARGE(A) NEGATIVE 03/23/2017 2:03 AM [facility] CULTURE & SENSITIVITY INDICATED? CULTURE IS NOT INDICATED 03/23/2017 2:03 AM [facility] WBC/HPF <1 <6 /HPF 03/23/2017 2:03 AM [facility] RBC/HPF >100(H) <6 /HPF 03/23/2017 2:03 AM [facility] URINE SPECIMEN OBTAINED BY CLEAN CATCH PROCEDURE / Unknown 03/23/2017 1:18 AM [facility] us Melvin Ray MD URINE ORDERABLES Final Res ult [facility] [address] [place] [address], [place] [phone] documented in this encounter Visit Diagnoses Diagnosis Kidney stone- Primary Calculus of kidney documented in this encounter Administered Medications Inactive Administered Medications - up to 3 most recent administrations Medication Order MAR Action Action Date Dose Rate Site HYDROmorphone (DILAUDID) injection 1 mg 1 mg, Intravenous, Once, 1 dose, On Valeri 03/23/17 at 0245 Given 03/23/2017 2:38 AM [facility] 1 mg HYDROmorphone (DILAUDID) injection 1 mg 1 mg, Intravenous, Once, 1 dose, On Valeri 03/23/17 at 0445 Given 03/23/2017 4:28 AM [facility] 1 mg iopamidol (ISOVUE-300) 61 % injection 100 mL 100 mL, Intravenous, IMG once as needed, Contrast, 1 dose, Starting on Valeri 03/23/17 at 0339, Until Valeri 03/23/17 at 0332 Given 03/23/2017 3:32 AM [facility] 100 mLs R ight Arm ondansetron (ZOFRAN) injection 4 mg 4 mg, Intravenous, Once, 1 dose, On Valeri 03/23/17 at 0245, IV push over 2-5 minutes. Given 03/23/2017 2:38 AM [facility] 4 mg sodium chloride 0.9% bolus infusion 1,000 mL 1,000 mL, Intravenous, Administer over 15 Minutes, Bolus (Once), 1 dose, On Valeri 03/23/17 at 0245 New Bag 03/23/2017 2:38 AM [facility] 1,000 mLs documented in this encounter Active and Recently Administered Medications Times are shown in [facility]. Scheduled Medication Order 03/21/2017 03/22/2017 03/23/2017 HYDROmorphone (DILAUDID) injection 1 mg (COMPLETED) 1 mg, Intravenous, Once, 1 dose, On Valeri 03/23/17 at 0245 0238 (Given - Provid er: Jennifer Metzger, NURIS) HYDROmorphone (DILAUDID) injection 1 mg (COMPLETED) 1 mg, Intravenous, Once, 1 dose, On Valeri 03/23/17 at 0445 0428 (Given - Provid er: Jennifer Metzger, NURIS) ondansetron (ZOFRAN) injection 4 mg (COMPLETED) 4 mg, Intravenous, Once, 1 dose, On Valeri 03/23/17 at 0245, IV push over 2-5 minutes. 0238 (Given - Provid er: Jennifer Metzger, NURIS) sodium chloride 0.9% bolus infusion 1,000 mL (COMPLETED) 1,000 mL, Intravenous, Administer over 15 Minutes, Bolus (Once), 1 dose, On Valeri 03/23/17 at 0245 0238 (New Bag - Prov ider: Jennifer Metzger, NURIS)[id number] (Infusion Stop Time - Provider: Jennifer Metzger, NURIS) PRN Medication Order 03/21/2017 03/22/2017 03/23/2017 iopamidol (ISOVUE-300) 61 % injection 100 mL (COMPLETED) 100 mL, Intravenous, IMG once as needed, Contrast, 1 dose, Starting on Valeri 03/23/17 at 0339, Until Valeri 03/23/17 at 0332 0332 (Given - Provid er: Jos Medrano RTR) documented in this encounter Additional Health Concerns Infection Onset Date Last Indicated Resolved Time MRSA Comment:mrsa nares pos. 02/201802/03/2017 02/03/2017 09/01/19 19 8:40 AM CDT documented as of this encounter Care Teams Inspection Clerk Relationship Specialty Start Date End Date Lavonne Ram MD [address] [place] [address] PCP - General FAMILY PRACTICE 04/24/16 08/19/17 Meena Bansal MD [address] [id number] [place] Asset Protection Professional CARDIOVASCULAR DISEASE 04/24/16 documented as of this encounter
--- OUTSIDE RECORDS SUMMARY | 2024-04-26 02:42 | XMS_ITS | Encounter Summary ---
Author Organization [facility] Address [address] [place] [address]. [place] [address] [place] [address] Care Team Providers Care Agronomy Technician Name Role Phone Meena Bansal MD Unavailable [phone] Gerardo Hoffman MD Primary Care Provider [phone] Reason for Visit * Reason Comments Abdominal Pain Vomiting * Auth/Cert Specialty Diagnoses / Procedures Referred By Contkristina t Referred To Contact Diagnoses Abdominal pain Abdominal pain Referral ID Status Reason Start Date Expiration Date Visits Re quested Visits Authorized [id number] 1 1 Encounter Details Date Type Department Care Team (Late st Contact Info) Description 09/10/2018 2:50 PM CDT - 09/10/2018 3:30 PM CDT Surgery [facility] Endo/[place] [address] Crissy Sheppard MD [address] [phone] EGD Surgery Details Date/Time Status Location OR Service Patient Class Case Class Case Type Trauma Case? 09/10/2018 2:50 PM Posted [facility]o 3 Gastroenterology Inpatient No Panel 1 Procedure LRB Anes Op Region Wound Class Comments EGD N/A General Clean Contaminated NORMAL COLONOSCOPY N/A General Clean Contaminated NORMAL Surgeon Surgeon Role Service Panel Crissy Sheppard MD Primary Gastroenterology 1 documented in this encounter Social History Tobacco [...] Sexual Orientation Straight 03/18/2018 3: 01 AM BEHAVIORAL HEALTH RN documented as of this encounter Last Filed Vital Signs Vital Sign Reading Time Taken Comments Blood Pressure 124/77 09/10/2018 1:51 PM CDT Pulse 70 09/10/2018 1:51 PM CDT Temperature 36.4 ??C (97.5 ??F) 09/10/2018 5:00 AM CD T Respiratory Rate 19 09/10/2018 1:51 PM CDT Oxygen Saturation 98% 09/10/2018 1:51 PM CDT Inhaled Oxygen Concentration - - [...] No results for input(s): PH, PCO2, PO2, [id number], BICARBWB, BASEDEFICIT, BASEEXCESS in the [id number] hours. Cultures: Blood: No results found for [...] Component Value Units Date/Time OCCULT BLOOD, FECES [[id number]] Order Status: No result Lab Status: No result Specimen: STOOL CULTURE URINE [[id number]] Collected: 09/09/18 0051 Order Status: Completed Lab Status: In process Updated: 09/09/18 0108 CULTURE URINE [[id number]] Collected: 09/04/18 1918 Order Status: Completed Lab Status: Final result Updated: 09/07/18 0933 Specimen: URINE, CLEAN CATCH Spec. Description URINE CLEAN CATCH Special Requests: NO SPECIAL REQUEST Culture Result: -- POLYMICROBIAL GROWTH CONSISTENT WITH NORMAL GENITAL YESENIA. SUSCEPTIBILITIES NOT ROUTINELY PERFORMED. CULTURE STOOL [[id number]] Collected: 08/31/18905 Order Status: Completed Lab Status: Final result Updated: 09/03/18 0839 Specimen: STOOL Spec. Description STOOL Special Requests: NO SPECIAL REQUEST Culture Result: NEGATIVE FOR SHIGA TOXIN 1 AND 2 Culture Result: NO ENTERIC PATHOGENS ISOLATED Culture Result: -- NOTE: STOOL CULTURES ARE ROUTINELY SCREENED FOR SALMONELLA,SHIGELLA,YERSINIA,AEROMONAS,PLESIOMONAS,CAMPYLOBA CTER,E.COLI 0157,OVERGROWTHS OF S.AUREUS,YEAST AND P. AERUGINOSA CRYPTO/GIARDIA AG, EIA STOOL [[id number]] Collected: 08/31/18905 Order Status: Completed Lab Status: Final result Updated: 08/31/18 1443 Specimen: STOOL GIARDIA ANTIGEN: NEGATIVE CRYPTOSPOR. ANTIGEN: NEGATIVE CLOSTRIDIUM DIFFICILE [[id number]] (Abnormal) Collected: 08/31/18905 Order Status: Completed Lab Status: Final result Updated: 08/31/18 1434 Specimen: STOOL MOLECULAR ASSAY -- UNACCEPTABLE SPECIMEN RECEIVED FOR TESTING. ONLY LIQUID STOOLS ARE ACCEPTABLE UNLESS ILEUS IS PRESENT. Comment: Successful Call: CHON called 08/31/2018 02:34 PM to ROOM [id number] ([facility]/[place]) by [id number]. Read Back: Yes CULTURE, BACTERIA, BLOOD [[id number]] Collected: 08/30/182215 Order Status: Completed Lab Status: Final result Updated: 09/05/18 0830 Specimen: BLOOD Spec. Description BLOOD Special Requests: NO SPECIAL REQUEST Culture Result: NO GROWTH 6 DAYS CULTURE, BACTERIA, BLOOD [[id number]] Collected: 08/30/182215 Order Status: Completed Lab Status: Final result Updated: 09/05/18 0830 Specimen: BLOOD Spec. Description BLOOD Special Requests: NO SPECIAL REQUEST Culture Result: NO GROWTH 6 DAYS OCCULT BLOOD, FECES [[id number]] Collected: 08/30/18 2135 Order Status: Completed Lab Status: Final result Updated: 08/30/18 2306 Specimen: STOOL OCCULT BLOOD, FECAL NEGATIVE CULTURE URINE [[id number]] Collected: 08/30/18 1502 Order Status: Completed Lab [...] for nausea -NS at 150 cc/hr -Home [place] -Bowel regimen ordered ?? PE and DVT [...] well controlled tonight with initial dose of [place] tablets. Pt able to sleep at intervals. [...] Concerns: None PCP: Gerardo Hoffman Insurance Plan: [facility] Notes: Pt's dtr is paid through [facility] [...] No results for input(s): PH, PCO2, PO2, [id number], BICARBWB, BASEDEFICIT, BASEEXCESS in the [id number] hours. Cultures: Blood: No results found for this visit on 09/09/18 (from the past 168 hour(s)). Urine: No results found for this visit on 09/09/18 (from the past 168 hour(s)). Microbiology Results (last 14 days) Procedure Component Value Units Date/Time OCCULT BLOOD, FECES [[id number]] Order Status: No result Lab Status: No result Specimen: STOOL CULTURE URINE [[id number]] Collected: 09/09/18 0051 Order Status: Completed Lab Status: In process Updated: 09/09/18 0108 CULTURE URINE [[id number]] Collected: 09/04/18 191 Order Status: Completed Lab Status: Final result Updated: 09/07/18 0933 Specimen: URINE, CLEAN CATCH Spec. Description URINE CLEAN CATCH Special Requests: NO SPECIAL REQUEST Culture Result: -- POLYMICROBIAL GROWTH CONSISTENT WITH NORMAL GENITAL YESENIA. SUSCEPTIBILITIES NOT ROUTINELY PERFORMED. CULTURE STOOL [[id number]] Collected: 08/31/18905 Order Status: Completed Lab Status: Final result Updated: 09/03/18 0839 Specimen: STOOL Spec. Description STOOL Special Requests: NO SPECIAL REQUEST Culture Result: NEGATIVE FOR SHIGA TOXIN 1 AND 2 Culture Result: NO ENTERIC PATHOGENS ISOLATED Culture Result: -- NOTE: STOOL CULTURES ARE ROUTINELY SCREENED FOR SALMONELLA,SHIGELLA,YERSINIA,AEROMONAS,PLESIOMONAS,CAMPYLOBA CTER,E.COLI 0157,OVERGROWTHS OF S.AUREUS,YEAST AND P. AERUGINOSA CRYPTO/GIARDIA AG, EIA STOOL [[id number]] Collected: 08/31/18905 Order Status: Completed Lab Status: Final result Updated: 08/31/18 1443 Specimen: STOOL GIARDIA ANTIGEN: NEGATIVE CRYPTOSPOR. ANTIGEN: NEGATIVE CLOSTRIDIUM DIFFICILE [[id number]] (Abnormal) Collected: 08/31/18905 Order Status: Completed Lab Status: Final result Updated: 08/31/18 1434 Specimen: STOOL MOLECULAR ASSAY -- UNACCEPTABLE SPECIMEN RECEIVED FOR TESTING. ONLY LIQUID STOOLS ARE ACCEPTABLE UNLESS ILEUS IS PRESENT. Comment: Successful Call: CHON called 08/31/2018 02:34 PM to ROOM [id number] (398[address]/[place]) by [id number]. Read Back: Yes CULTURE, BACTERIA, BLOOD [[id number]] Collected: 08/30/182215 Order Status: Completed Lab Status: Final result Updated: 09/05/18 0830 Specimen: BLOOD Spec. Description BLOOD Special Requests: NO SPECIAL REQUEST Culture Result: NO GROWTH 6 DAYS CULTURE, BACTERIA, BLOOD [[id number]] Collected: 08/30/182215 Order Status: Completed Lab Status: Final result Updated: 09/05/18 0830 Specimen: BLOOD Spec. Description BLOOD Special Requests: NO SPECIAL REQUEST Culture Result: NO GROWTH 6 DAYS OCCULT BLOOD, FECES [[id number]] Collected: 08/30/18 2135 Order Status: Completed Lab Status: Final result Updated: 08/30/18 2306 Specimen: STOOL OCCULT BLOOD, FECAL NEGATIVE CULTURE URINE [[id number]] Collected: 08/30/18 1502 Order Status: Completed Lab [...] for nausea -NS at 150 cc/hr -Home [place] and Morphine for breakthrough -Bowel regimen ordered [...] CDT 09/09/18 1100 Therapy Visit Ordering Provider [facility] [id number]: RECEIVED P.T. EVAL ORDER AND REVIEWED [...] prn for pain -FOBT Cosigned by Kirit Stafofrd MD at 09/10/2018 8:15 AM CDT Associated [...] were discussed with the patient and/or family/personal order entry representative. Questions were answered and the patient/family/personal order entry representative verbalized understanding and desires to proceed. * Jonel Pabon DO - 09/09/2018 4:40 AM CDT History and Physical DATE: 09/09/2018 ID: [id number] Karly Marques CC: Abdominal pain HPI: Karly [...] 2018. She also has been seen at [facility], and again evaluated in our ED. She has now had 3 CT scans of her abdomen in that time. she was to see GI, but has yet to be able to set up an apt. Her abdominal pain has been accompanied with loose stools. She also notes mucus in the diarrhea. The abdominal pain is located in the center of her abdo men, above her belly button. She describes the pain as a constant/achy pain and up to 7/10 today. She says she had blood in her stool last admission. She also reports conitued nausea and vomiting. She had a couple of episodes of blood tinged vomit without coffe grounds. She has not been able to eator drink much because of the nausea. She [...] file Gets together: Not on file Attends taoist service: Not on file Active member of [...] ??? TRANSPARENCY 09/09/2018 CLEAR Final ??? Specific [place] (U) 09/09/2018 1.023 1.001 - 1.030 Final [...] for nausea -NS at 150 cc/hr -Home [place] and Morphine for breakthrough -Bowel regimine ordered [...] 09/09/2018 1:16 PM CDT Teaching Physician - IKIRIT MD, performed an examination of the patient [...] to several hospitals now. She went to [facility] and a CT scan of [...] file Gets together: Not on file Attends taoist service: Not on file Active member of [...] Sheppard MD - 09/10/2018 6:27 PM CDT [facility] OpNote EGD , COLONOSCOPY Procedure Note Karly Montero Shelli 09/09/2018 - 09/10/2018 1450 Procedure(s) (LRB): EGD (N/A) COLONOSCOPY (N/A) Surgeon(s): Crissy Sheppard MD Staff: GI Nurse: Abiola Nur RN fixture relamper: Sarah Cobos Anesthesia: General Anesthesiologist: Nehemias Brown MD BOAT OAR MAKER: Adriana Arias CRNA Pre-Op Diagnosis: abdominal pain [...] CLEAN CATCH COLOR YELLOW TRANSPARENCY CLEAR Specific [place] (U) 1.023 1.001 - 1.030 U PH [...] Date/Time Associated Diagnosis Comments POCT GLUCOSE - SAVAEG DOCKED DEVICE Routine 09/11/2018 4:31 PM CDT [...] - 99 mg/dL 09/11/2018 4:39 PM CDT [facility] LAB ORDERS INTERFACE 09/11/2018 4:31 PM CDT us Kirit Stafford MD POCT ORDERABLES - DEVICE Deann bowman Result [facility] LAB ORDERS INTERFACE US * (ABNORMAL) POCT glucose (09/11/2018 11:35 AM CDT) GLUCOSE POC 137(H) 70 - 99 mg/dL 09/11/2018 11:38 AM CDT [facility] LAB ORDERS INTERFACE 09/11/2018 11:3 5 AM CDT us Kirit Stafford MD POCT ORDERABLES - DEVICE Deann l Result [facility] LAB ORDERS INTERFACE US * XR SMALL [...] history: Abdominal pain. Comparison: CT 09/04/2018. Technique: Die Barber images of the abdomen were obtained. The [...] history: Abdominal pain. Comparison: CT 09/04/2018. Technique: Die Barber images of the abdomen were obtained. The [...] POCT glucose (09/11/2018 6:52 AM CDT) Pathologist [facility] GLUCOSE POC 188(H) 70 - 99 mg/dL 09/11/2018 8:01 AM CDT [facility] LAB ORDERS INTERFACE 09/11/2018 6:52 AM CDT Kirit Stafford MD POCT ORDERABLES - DEVICE Deann l Result [facility] LAB ORDERS INTERFACE US * (ABNORMAL) CBC W/DIFF AUTOMATED (09/11/2018 5:19 AM CDT) Pathologist [facility] WBC 9.5 4.5 - 11.0 x10'3/uL 09/11/2018 6:09 AM CDT [facility] RBC 3.75(L) 4.20 - 5.40 x10'6/uL 09/11/2018 6:09 AM CDT [facility] HGB 10.5(L) 12.0 - 16.0 G/DL 09/11/2018 6:09 AM CDT [facility] HCT 33.9(L) 38.0 - 48.0 % 09/11/2018 6:09 AM CDT [facility] MCV 90.4 80.0 - 94.0 FL 09/11/2018 6:09 AM CDT [facility] MCH 28.0 27.0 - 31.0 PG 09/11/2018 6:09 AM CDT [facility] MCHC 31.0(L) 32.0 - 36.0 G/DL 09/11/2018 6:09 AM T [facility] RDW 14.1 11.5 - 14.5 % 09/11/2018 6:09 AM T [facility] PLT 272 130 - 400 x10'3/uL 09/11/2018 6:09 AM T [facility] MPV 10.1 9.3 - 12.2 FL 09/11/2018 6:09 AM T [facility] DIFFERENTIAL TYPE AUTOMATED DIFFERENTIAL 09/11/2018 6:09 AM T [facility] NEUTROPHILS % 62.0 % 09/11/2018 6:09 AM T [facility] LYMPHOCYTES % 25.3 % 09/11/2018 6:09 AM T [facility] MONOCYTES % 8.6 % 09/11/2018 6:09 AM CDT [facility] EOSINOPHILS 3.4 % 09/11/2018 6:09 AM CDT [facility] BASOPHILS 0.4 % 09/11/2018 6:09 AM T [facility] IMMATURE GRANS % 0.3 % 09/12/19 6:09 AM T [facility] ABS. NEUTROPHILS TOTAL 5.92 1.80 - 7.70 x10'3/uL 09/11/2018 6:09 AM CDT [facility] ABS. LYMPHOCYTES 2.41 1.00 - 4.80 x10'3/uL 09/11/2018 6:09 AM CDT [facility] ABS. MONOCYTES 0.82 0.24 - 0.86 x10'3/uL 09/11/2018 6:09 AM CDT [facility] ABS. EOSINOPHILS 0.32 0.04 - 0.36 x10'3/uL 09/11/2018 6:09 AM CDT [facility] ABS. BASOPHILS 0.04 0.01 - 0.08 x10'3/uL 09/11/2018 6:09 AM CDT [facility] ABS. IMMATURE GRANULOCYTES 0.03 0.00 - 0.49 x10'3/uL 09/11/2018 6:09 AM CDT [facility] 09/11/2018 5:19 AM CDT us Gil Dawson MD LABORATORY Final Result [facility] [address] [place] [address], [place] [phone] * (ABNORMAL) COMPREHENSIVE METABOLIC PANEL (09/11/2018 5:19 AM CDT) [facility] GLUCOSE 190(H) 70 - 99 MG/DL 09/11/2018 6:56 AM CDT [facility] BUN 17 7 - 18 MG/DL 09/11/2018 6:56 AM CDT [facility] CREATININE S/P/B 0.85 0.55 - 1.02 MG/DL 09/11/2018 6:56 AM CDT [facility] SODIUM S/P/B 141 136 - 145 MMOL/L 09/11/2018 6:56 AM CDT [facility] POTASSIUM S/P/B 4.2 3.5 - 5.1 MMOL/L 09/11/2018 6:56 AM T [facility] CHLORIDE S/P/B 109(H) 100 - 108 MMOL/L 09/11/2018 6:56 AM T [facility] CO2 26.6 21 - 32 MMOL/L 09/11/2018 6:56 AM T [facility] CALCIUM S/P/B 8.7 8.5 - 10.1 MG/DL 09/11/2018 6:56 AM T [facility] BILIRUBIN TOTAL S/P/B 0.4 0.2 - 1.2 MG/DL 09/11/2018 6:56 AM T [facility] TOTAL PROTEIN S/P/B 7.0 6.4 - 8.2 G/DL 09/11/2018 6:56 AM T [facility] ALBUMIN S/P/B 2.8(L) 3.4 - 5.0 G/DL 09/11/2018 6:56 AM T [facility] AST 14(L) 15 - 37 U/L 09/11/2018 6:56 AM T [facility] ALT 22 14 - 55 U/L 09/11/2018 6:56 AM T [facility] ALKALINE PHOSPHATASE S/P/B 85 50 - 136 U/L 09/11/2018 6:56 AM T [facility] ANION GAP 9.6 8 - 20 MMOL/L 09/11/2018 6:56 AM T [facility] BUN CREATININE RATIO 20.1 6 - 26 09/11/2018 6:56 AM T [facility] A/G RATIO 0.7(L) 1.0 - 2.0 RATIO 09/11/2018 6:56 AM CDT [facility] EGFR NON-AFR. AMER. 73(L) >90 ML/MIN/1.7 3 M2 09/11/2018 6:56 AM CDT [facility] EGFR AFR. AMER. 85(L) >90 ML/MIN/1.7 3 M2 09/11/2018 6:56 AM CDT [facility] Comment: NOTE: eGFR is not calculated for patients <18 years of age. This is an estimated GFR (CKD EPI) and should not be used for calculating drug doses. 09/11/2018 5:19 AM CDT Gil Dawson MD LABORATORY Final Result Performing Organization Address [facility] Co de Phone Number [facility] [address] [place] [address], * (ABNORMAL) POCT glucose (09/11/2018 12:13 AM CDT) GLUCOSE POC 221(H) 70 - 99 mg/dL 09/11/2018 12:16 AM CDT [facility] ORDERS INTERFACE 09/11/2018 12:1 3 AM CDT Kirit Stafford MD POCT ORDERABLES - DEVICE Deann l Result Performing Organization Address City/[facility] Co de Phone Number [facility] ORDERS INTERFACE US * (ABNORMAL) POCT glucose (09/10/2018 8:29 PM CDT) GLUCOSE POC 181(H) 70 - 99 mg/dL 09/10/2018 11:04 PM CDT [facility] ORDERS INTERFACE 09/10/2018 8:29 PM CDT Kirit Stafford MD POCT ORDERABLES - DEVICE Deann l Result Performing Organization Address City/[facility]/ZIP Co de Phone Number [facility] ORDERS INTERFACE US * (ABNORMAL) POCT glucose (09/10/2018 4:19 PM CDT) GLUCOSE POC 114(H) 70 - 99 mg/dL 09/10/2018 4:22 PM CDT [facility] ORDERS INTERFACE 09/10/2018 4:19 PM CDT Kirit Stafford MD POCT ORDERABLES - DEVICE Deann l Result Performing Organization Address [facility] Co de Phone Number [facility] ORDERS INTERFACE US * (ABNORMAL) POCT glucose (09/10/2018 12:24 PM CDT) GLUCOSE POC 135(H) 70 - 99 mg/dL 09/10/2018 12:27 PM CDT [facility] ORDERS INTERFACE 09/10/2018 12:2 4 PM CDT Kirit Stafford MD POCT ORDERABLES - DEVICE Deann l Result Performing Organization Address [facility] de Phone Number [facility] ORDERS INTERFACE US * (ABNORMAL) HEMOGLOBIN, GLYCOSYLATED (09/10/2018 5:57 AM CDT) HGB A1C 7.8(H) 4.2 - 6.3 % 09/10/2018 3:26 PM CDT [facility] Comment: ADA GUIDELINES 2010 5.7 TO 6.4% INCREASED RISK OF DIABETES > OR = 6.5% CONSISTENT WITH DIABETES ESTIMATED AVG GLUCOSE 177 mg/dL 09/10/2018 3:26 PM CDT [facility] 09/10/2018 5:57 AM CDT Shanthi Mendez MD LABORATORY Final Result Performing Organization Address [facility] Co de Phone Number [facility] [address] [place] [address], [place] [phone] * (ABNORMAL) CBC W/DIFF AUTOMATED (09/10/2018 5:57 AM CDT) WBC 7.6 4.5 - 11.0 x10'3/uL 09/10/2018 7:01 AM CDT [facility] RBC 3.93(L) 4.20 - 5.40 x10'6/uL 09/10/2018 7:01 AM CDT [facility] HGB 10.9(L) 12.0 - 16.0 G/DL 09/10/2018 7:01 AM CDT [facility] HCT 35.8(L) 38.0 - 48.0 % 09/10/2018 7:01 AM CDT [facility] MCV 91.1 81.0 - 99.0 FL 09/10/2018 7:01 AM CDT [facility] MCH 27.7 27.0 - 31.0 PG 09/10/2018 7:01 AM CDT [facility] MCHC 30.4(L) 32.0 - 36.0 G/DL 09/10/2018 7:01 AM CDT [facility] RDW 13.9 11.5 - 14.5 % 09/10/2018 7:01 AM T [facility] PLT 268 130 - 400 x10'3/uL 09/10/2018 7:01 AM CDT [facility] MPV 9.8 9.3 - 12.2 FL 09/10/2018 7:01 AM CDT [facility] DIFFERENTIAL TYPE AUTOMATED DIFFERENTIAL 09/10/2018 7:01 AM CDT [facility] NEUTROPHILS % 56.8 % 09/10/2018 7:01 AM CDT [facility] LYMPHOCYTES % 28.9 % 09/10/2018 7:01 AM CDT [facility] MONOCYTES % 8.0 % 09/10/2018 7:01 AM CDT [facility] EOSINOPHILS 5.5 % 09/10/2018 7:01 AM CDT [facility] BASOPHILS 0.4 % 09/10/2018 7:01 AM CDT [facility] IMMATURE GRANS % 0.4 % 09/11/19 7:01 AM CDT [facility] ABS. NEUTROPHILS TOTAL 4.30 1.80 - 7.70 x10'3/uL 09/10/2018 7:01 AM CDT [facility] ABS. LYMPHOCYTES 2.19 1.00 - 4.80 x10'3/uL 09/10/2018 7:01 AM CDT [facility] ABS. MONOCYTES 0.61 0.24 - 0.86 x10'3/uL 09/10/2018 7:01 AM CDT [facility] ABS. EOSINOPHILS 0.42(H) 0.04 - 0.36 x10'3/uL 09/10/2018 7:01 AM CDT [facility] ABS. BASOPHILS 0.03 0.01 - 0.08 x10'3/uL 09/10/2018 7:01 AM CDT [facility] ABS. IMMATURE GRANULOCYTES 0.03 0.00 - 0.49 x10'3/uL 09/10/2018 7:01 AM CDT [facility] 09/10/2018 5:57 AM CDT us Gil Dawson MD LABORATORY Final Result [facility] [address] [place] [address], [place] [phone] * (ABNORMAL) COMPREHENSIVE METABOLIC PANEL (09/10/2018 5:57 AM CDT) [facility] GLUCOSE 121(H) 70 - 99 MG/DL 09/10/2018 7:43 AM CDT [facility] BUN 13 7 - 18 MG/DL 09/10/2018 7:43 AM T [facility] CREATININE S/P/B 0.64 0.55 - 1.02 MG/DL 09/10/2018 7:43 AM T [facility] SODIUM S/P/B 136 136 - 145 MMOL/L 09/10/2018 7:43 AM T [facility] POTASSIUM S/P/B 4.3 3.5 - 5.1 MMOL/L 09/10/2018 7:43 AM T [facility] CHLORIDE S/P/B 106 100 - 108 MMOL/L 09/10/2018 7:43 AM T [facility] CO2 22.6 21 - 32 MMOL/L 09/10/2018 7:43 AM T [facility] CALCIUM S/P/B 8.5 8.5 - 10.1 MG/DL 09/10/2018 7:43 AM T [facility] BILIRUBIN TOTAL S/P/B 0.7 0.2 - 1.2 MG/DL 09/10/2018 7:43 AM T [facility] TOTAL PROTEIN S/P/B 6.8 6.4 - 8.2 G/DL 09/10/2018 7:43 AM T [facility] ALBUMIN S/P/B 2.7(L) 3.4 - 5.0 G/DL 09/10/2018 7:43 AM CDT [facility] AST 18 15 - 37 U/L 09/10/2018 7:43 AM T [facility] ALT 22 14 - 55 U/L 09/10/2018 7:43 AM T [facility] ALKALINE PHOSPHATASE S/P/B 78 50 - 136 U/L 09/10/2018 7:43 AM CDT [facility] ANION GAP 11.7 8 - 20 MMOL/L 09/10/2018 7:43 AM CDT [facility] BUN CREATININE RATIO 20.3 6 - 26 09/10/2018 7:43 AM CDT [facility] A/G RATIO 0.7(L) 1.0 - 2.0 RATIO 09/10/2018 7:43 AM T [facility] EGFR NON-AFR. AMER. >90 >90 ML/MIN/1.7 3 M2 09/10/2018 7:43 AM CDT [facility] EGFR AFR. AMER. >90 >90 ML/MIN/1.7 3 M2 09/10/2018 7:43 AM CDT [facility] Comment: NOTE: eGFR is not calculated for patients <18 years of age. This is an estimated GFR (CKD EPI) and should not be used for calculating drug doses. 09/10/2018 5:57 AM CDT us Jonel Pabon DO LABORATORY Final Result Performing Organization Address City/[facility]/ZIP Co de Phone Number [facility] [address] [place] [id number], [place] [phone] * (ABNORMAL) POCT glucose (09/10/2018 5:37 AM CDT) GLUCOSE POC 143(H) 70 - 99 mg/dL 09/10/2018 7:20 AM CDT [facility] ORDERS INTERFACE 09/10/2018 5:37 AM CDT us Kirit Stafford MD POCT ORDERABLES - DEVICE Deann l Result [facility] ORDERS INTERFACE US * (ABNORMAL) POCT glucose (09/09/2018 9:55 PM CDT) GLUCOSE POC 127(H) 70 - 99 mg/dL 09/09/2018 10:00 PM CDT [facility] ORDERS INTERFACE 09/09/2018 9:55 PM CDT Kirit Stafford MD POCT ORDERABLES - DEVICE Deann l Result Performing Organization Address [facility] Co de Phone Number [facility] ORDERS INTERFACE US * (ABNORMAL) POCT glucose (09/09/2018 5:18 PM CDT) GLUCOSE POC 122(H) 70 - 99 mg/dL 09/09/2018 5:21 PM CDT [facility] ORDERS INTERFACE 09/09/2018 5:18 PM CDT Kirit Stafford MD POCT ORDERABLES - DEVICE Deann l Result Performing Organization Address [facility] de Phone Number [facility] ORDERS INTERFACE US * (ABNORMAL) POCT glucose (09/09/2018 12:02 PM CDT) GLUCOSE POC 146(H) 70 - 99 mg/dL 09/09/2018 3:59 PM CDT [facility] ORDERS INTERFACE 09/09/2018 12:0 2 PM CDT Kirit Stafford MD POCT ORDERABLES - DEVICE Deann l Result Performing Organization Address [facility] Co de Phone Number [facility] ORDERS INTERFACE US * (ABNORMAL) POCT glucose (09/09/2018 6:28 AM CDT) GLUCOSE POC 154(H) 70 - 99 mg/dL 09/09/2018 6:31 AM CDT [facility] ORDERS INTERFACE 09/09/2018 6:28 AM CDT Kirit Stafford MD POCT ORDERABLES - DEVICE Deann l Result Performing Organization Address City/[facility] Co de Phone Number [facility] ORDERS INTERFACE US * CULTURE URINE (09/09/2018 12:51 AM CDT) SPEC DESCRIPTION URINE CLEAN CATCH 09/09/2018 1:08 AM CDT [facility] SPECIAL REQUESTS NO SPECIAL REQUEST 09/09/2018 1:08 AM CDT [facility] CULTURE RESULT POLYMICROBIAL GROWTH CONSISTENT WITH NORMAL GENITAL YESENIA. ?? SUSCEPTIBILITIES NOT ROUTINELY PERFORMED. 09/11/2018 6:58 AM CDT [facility] URINE SPECIMEN OBTAINED BY CLEAN CATCH PROCEDURE / Unknown 09/09/2018 12:51 AM CDT 09/09/2018 1:07 AM CDT us Colten Reilly MD MICROBIOLOGY - GENERAL ORDERABLE S Final Result [facility] [address] [place] [address], * (ABNORMAL) URINALYSIS (09/09/2018 12:50 AM CDT) SPECIMEN TYPE URINE CLEAN CATCH 09/09/2018 12:51 AM CDT [facility] COLOR (U) YELLOW 09/09/2018 1:07 AM CDT [facility] TRANSPARENCY CLEAR 09/09/2018 1:07 AM CDT [facility] [facility] SPECIFIC GRAVITY (U) 1.023 1.001 - 1.030 09/09/2018 1:07 AM CDT [facility] U PH 5.0 5.0 - 9.0 09/09/2018 1:07 AM CDT [facility] LEUKOCYTES (U) MODERATE(A) NEGATIVE 9 1:07 AM CDT [facility] NITRITES NEGATIVE NEGATIVE 09/09/2018 1:07 AM CDT [facility] PROTEIN (U) NEGATIVE <30 MG/DL 09/09/2018 1:07 AM CDT [facility] URINE GLUCOSE NEGATIVE NEGATIVE MG/DL 09/09/2018 1:07 AM CDT [facility] KETONES MG/DL (U) NEGATIVE NEGATIVE MG/DL 09/09/2018 1:07 AM CDT [facility] UROBILINOGEN NEGATIVE NEGATIVE MG/DL 09/09/2018 1:07 AM T [facility] BILIRUBIN (U) NEGATIVE NEGATIVE MG/DL 09/09/2018 1:07 AM T [facility] BLOOD (U) MODERATE(A) NEGATIVE 09/09/2018 1:07 AM [facility] CULTURE & SENSITIVITY INDICATED? SPECIMEN SETUP FOR CULTURE 09/09/2018 1:07 AM T [facility] SQUAMOUS EPITHELIALS FEW /LPF 09/09/2018 1:07 AM T [facility] MUCUS RARE /LPF 09/09/2018 1:07 AM T [facility] WBC/HPF 22(H) <6 /HPF 09/09/2018 1:07 AM T [facility] RBC/HPF 28(H) <6 /HPF 09/09/2018 1:07 AM T [facility] URINE SPECIMEN OBTAINED BY CLEAN CATCH PROCEDURE / Unknown 09/09/2018 12:50 AM CDT us Colten Reilly MD URINE ORDERABLES Final Result [facility] [address] [place] [address], * LIPASE (09/09/2018 12:50 AM CDT) LIPASE 156 73 - 393 UNITS/L 09/09/2018 1:30 AM CDT [facility] 09/09/2018 12:5 0 AM CDT us Colten Reilly MD LABORATORY Final Result [facility] [address] [place] [address], * (ABNORMAL) COMPREHENSIVE METABOLIC PANEL (09/09/2018 12:50 AM CDT) Pathologist [facility] GLUCOSE 191(H) 70 - 99 MG/DL 09/09/2018 1:30 AM CDT [facility] BUN 20(H) 7 - 18 MG/DL 09/09/2018 1:30 AM CDT [facility] CREATININE S/P/B 0.93 0.55 - 1.02 MG/DL 09/09/2018 1:30 AM CDT [facility] SODIUM S/P/B 135(L) 136 - 145 MMOL/L 09/09/2018 1:30 AM CDT [facility] POTASSIUM S/P/B 4.2 3.5 - 5.1 MMOL/L 09/09/2018 1:30 AM CDT [facility] CHLORIDE S/P/B 102 100 - 108 MMOL/L 09/09/2018 1:30 AM CDT [facility] CO2 28.7 21 - 32 MMOL/L 09/09/2018 1:30 AM CDT [facility] CALCIUM S/P/B 9.4 8.5 - 10.1 MG/DL 09/09/2018 1:30 AM CDT [facility] BILIRUBIN TOTAL S/P/B 0.4 0.2 - 1.2 MG/DL 09/09/2018 1:30 AM CDT [facility] TOTAL PROTEIN S/P/B 9.0(H) 6.4 - 8.2 G/DL 09/09/2018 1:30 AM T [facility] ALBUMIN S/P/B 3.6 3.4 - 5.0 G/DL 09/09/2018 1:30 AM T [facility] AST 20 15 - 37 U/L 09/09/2018 1:30 AM T [facility] ALT 26 14 - 55 U/L 09/09/2018 1:30 AM T [facility] ALKALINE PHOSPHATASE S/P/B 102 50 - 136 U/L 09/09/2018 1:30 AM T [facility] ANION GAP 8.5 8 - 20 MMOL/L 09/09/2018 1:30 AM T [facility] BUN CREATININE RATIO 21.6 6 - 26 09/09/2018 1:30 AM [facility] A/G RATIO 0.7(L) 1.0 - 2.0 RATIO 09/09/2018 1:30 AM T [facility] EGFR NON-AFR. AMER. 66(L) >90 ML/MIN/1.7 3 M2 09/09/2018 1:30 AM [facility] EGFR AFR. AMER. 76(L) >90 ML/MIN/1.7 3 M2 09/09/2018 1:30 AM [facility] Comment: NOTE: eGFR is not calculated for patients <18 years of age. This is an estimated GFR (CKD EPI) and should not be used for calculating drug doses. 09/09/2018 12:5 0 AM CDT us Colten Reilly MD LABORATORY Final Result [facility] [address] [place] [address], [place] [phone] * (ABNORMAL) CBC W/DIFF AUTOMATED (09/09/2018 12:50 AM CDT) WBC 12.5(H) 4.5 - 11.0 x10'3/uL 09/09/2018 1:16 AM CDT [facility] RBC 4.84 4.20 - 5.40 x10'6/uL 09/09/2018 1:16 AM CDT [facility] HGB 13.5 12.0 - 16.0 G/DL 09/09/2018 1:16 AM CDT [facility] HCT 42.7 38.0 - 48.0 % 09/09/2018 1:16 AM CDT [facility] MCV 88.2 80.0 - 94.0 FL 09/09/2018 1:16 AM CDT [facility] MCH 27.9 27.0 - 31.0 PG 09/09/2018 1:16 AM CDT [facility] MCHC 31.6(L) 32.0 - 36.0 G/DL 09/09/2018 1:16 AM CDT [facility] RDW 13.8 11.5 - 14.5 % 09/09/2018 1:16 AM CDT [facility] PLT 383 130 - 400 x10'3/uL 09/09/2018 1:16 AM CDT [facility] MPV 9.7 9.3 - 12.2 FL 09/09/2018 1:16 AM CDT [facility] DIFFERENTIAL TYPE MANUAL DIFFERENTIAL 09/09/2018 1:54 AM CDT [facility] SEG NEUTROPHILS 60 % 9 1:54 AM CDT [facility] LYMPHOCYTES 23 % 09/09/2018 1:54 AM CDT [facility] MONOCYTES 13 % 09/09/2018 1:54 AM CDT [facility] EOSINOPHILS 3 % 09/09/2018 1:54 AM CDT [facility] MYELOCYTES 1 % 09/09/2018 1:54 AM CDT [facility] ABS. NEUTROPHILS CALCULATED 7.50 1.80 - 7.70 x10'3/uL 09/09/2018 1:54 AM CDT [facility] ABS.LYMPHOCYTES CALCULATED 2.88 1.00 - 4.80 x10'3/uL 09/09/2018 1:54 AM CDT [facility] ABS. MONOCYTES CALCULATED 1.63(H) 0.24 - 0.86 x10'3/uL 09/09/2018 1:54 AM CDT [facility] ABS. EOSINOPHIL CALCULATED 0.38(H) 0.04 - 0.36 x10'3/uL 09/09/2018 1:54 AM CDT [facility] ABS. MYELOCYTES 0.13(H) 0.00 x10'3/uL 09/09/2018 1:54 AM CDT [facility] RBC MORPHOLOGY RBC MORPHOLOGY APPEARS NORMAL. SLIDE REVIEWED. 09/09/2018 1:54 AM CDT [facility] PLT EST. ADEQUATE 09/09/2018 1:54 AM CDT [facility] 09/09/2018 12:5 0 AM CDT us Colten Reilly MD LABORATORY Final Result [facility] [address] [place] [address], [place] [phone] documented in this encounter Visit Diagnoses Not on filedocumented in this encounter Admitting Diagnoses Diagnosis Abdominal [...] 192, If patient is verbally responsive and NPO [...] dose on 09/09/18 at 0900, Until Discontinued Given 09/11/2018 12:17 [...] modification) on 09/09/18 at 0945, Until Discontinued polyethylene glycol (GoLYTELY) solution 4,000 mL 4,000 mL, Oral, As needed, administer 240 mL every 15 minutes until clear, 1 dose, Starting on 09/09/18 at 1155, Until 09/09/18 at 2011, Resume prep at 0500 time next morning, Pre-ProcedureIndications:Abdominal pain Given 09/09/2018 8:11 PM CDT 4,00 0 mLs rivaroxaban (XARELTO) tablet 20 mg 20 mg, Oral, Daily, First dose on 09/09/18 at 0900, Until Discontinued Given 09/11/2018 12:17 PM CDT 20 mg Given 09/09/2018 9:48 AM CDT 20 mg ropinirole (REQUIP) tablet 5 mg 5 mg, Oral, Nightly at bedtime, First dose (after last modification) on 09/09/18 at 0600, Until Discontinued Given 09/10/2018 9:15 [...] dose on 09/09/18 at 2100, Until Discontinued 2156 (Given - Provider: Raeann Ceron LPN) 2116 [...] Simmons RN)2047 (Not Given - Provider: Jane Moss, RN - Reason: Patient/family declined) 1216 (Given - Provider: Albert Gaxiola RN) EPINEPHrine PF (ADRENALIN) 1 mg/mL injection 0.5 mg (COMPLETED) 0.5 mg, Intramuscular, Once, 1 dose, On Mon09/10/18 at 2330 2355 (Given - Provider: Jane Moss, RN) exemestane (AROMASIN) tablet 25 mg 25 mg, Oral, Daily with supper, First dose on 09/09/18 at 1700, Until Discontinued, Give with food HAZARDOUS MEDICATION, MED STORED in Med1 Pyxis-Patient Specific Bin , Patient's Own Exemastane (aromasin) [...] Coronel, NURIS) 0935 (Not Given - Provider: Christin Simmons RN [...] LPN) 0832 (Given - Provider: Christin Simmons RN)2046 (Given - Provider: Jane Moss [...] 0948 (Given - Provider: Mary Sloan LPN) 0817 (Not Given - Provider: Christin Simmons RN - Reason: NPO - Comment: EGD/ Colonoscopy) 1217 (Given - Provider: Albert Gaxiola, RN) ropinirole (REQUIP) tablet 5 mg 5 mg, Oral, Nightly at bedtime, First dose (after last modification) on Mon09/09/18 at 0600, Until Discontinued 0730 (Given - Provider: Felicitas Coronel, NURIS)215 (Given - Provider: Raeann Ceron LPN) 2114 (Given - Provider: Jane Moss, NURIS) Continuous [...] NURIS) 1520 (New Bag - Provider: Albert Gaxiola, NURIS) PRN Medication Order 09/09/2018 09/10/2018 09/11/2018 barium [...] 15 seconds. 1036 (Given - Provider: Isamar M Damion, RN)1843 (Given - Provider: Nirmala Marino RN) 1113 (Given - Provider: Brittany Short, RN)1713 (Given - Provider: Brittany Short, RN) ondansetron (ZOFRAN) injection 4 mg 4 mg, Intravenous, Every 6 hours PRN, Nausea, Starting on 09/09/18 at 0451, Until Mon09/11/18 at 1922, IV [...] pos. 02/201808/31/2018 08/31/2018 07/02/19 21 2:54 AM [facility] RN documented as of this encounter Care Teams Agronomy Technician Relationship Specialty Start Date End Date Gerardo Hoffman MD [address] [facility] [address] [place] [address] PCP - General FAMILY PRACTICE 08/20/17 Meena Bansal MD [address] [facility] [address] [place] [address] [place] [employer] CARDIOVASCULAR DISEASE 04/24/16 documented as of this encounter
--- OUTSIDE RECORDS SUMMARY | 2024-04-26 02:42 | XMS_ITS | Encounter Summary ---
Author Organization [facility] Address [address] [place] [address]. [place] [address] [place] [address] Care Team Providers Care Shank Archer Name Role Phone Lavonne Ram MD Primary Care Provider [phone] Meena Bansal MD Unavailable [phone] Encounter Details Date Type Department Care Team (Late st Contact Info) Description 12/07/2016 Abstract [facility] [place] [address] Lila Morrison MD [address] [facility] [address] [place], [place] [id number] Social History Tobacco Use Types Packs/Day Years Used Date Smoking Tobacco: Never Assessed Comments Unknown Sex and Gender Information Value Date Recorded Sex Assigned at Female 09/06/2020 12:50 AM CDT Legal Sex Female 10:47 AM CDT Gender Identity Female 09/06/2020 12:50 AM CDT Sexual Orientation Straight 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 Plan of Treatment Not on file documented as of this encounter Procedures Procedure Name Priority Date/Time Associated Diagnosis Comments BASIC METABOLIC PANEL TIMED 12/07/2016 6:15 AM CDT CBC W/DIFF AUTOMATED TIMED 12/07/2016 6:15 AM CDT POCT GLUCOSE - SAVAGE DOCKED DEVICE Routine 12/07/2016 5:40 AM CDT POCT GLUCOSE - SAVAGE DOCKED DEVICE Routine 12/06/2016 10:17 PM CDT POCT GLUCOSE - SAVAGE DOCKED DEVICE Routine 12/06/2016 3:45 PM CDT POCT GLUCOSE - SAVAGE DOCKED DEVICE Routine 12/06/2016 11:45 AM CDT INFLUENZA A & B Routine 12/06/2016 10:13 AM CDT BASIC METABOLIC PANEL Routine 12/06/2016 7:20 AM CDT CBC W/DIFF AUTOMATED TIMED 12/06/2016 7:20 AM CDT POCT GLUCOSE - SAVAGE DOCKED DEVICE Routine 12/06/2016 5:55 AM CDT MRSA SCREENING Routine 12/06/2016 2:30 AM CDT HEPATIC FUNCTION PANEL Routine 12/05/2016 10:37 PM CDT CULTURE, BACTERIA, BLOOD TIMED 12/05/2016 10:37 PM CDT CULTURE, BACTERIA, BLOOD TIMED 12/05/2016 10:37 PM CDT LIPASE Routine 12/05/2016 10:37 PM CDT CK (CPK) Routine 12/05/2016 10:37 PM CDT URINALYSIS WI REFLEX TO CULTURE STAT 12/05/2016 6:12 PM CDT BASIC METABOLIC PANEL STAT 12/05/2016 5:22 PM CDT LACTIC ACID STAT 12/05/2016 5:22 PM CDT CBC W/DIFF AUTOMATED STAT 12/05/2016 5:22 PM CDT documented in this encounter Results * (ABNORMAL) CBC W/DIFF AUTOMATED (12/07/2016 6:15 AM CDT) WBC 5.8 4.8 - 10.8 x10'3/uL 12/07/2016 7:00 AM CDT [facility] RBC 3.48(L) 4.20 - 5.40 x10'6/uL 12/07/2016 7:00 AM CDT [facility] HGB 9.8(L) 12.0 - 16.0 G/DL 12/07/2016 7:00 AM CDT [facility] HCT 31.5(L) 38.0 - 48.0 % 12/07/2016 7:00 AM CDT [facility] MCV 90.5 81.0 - 99.0 FL 12/07/2016 7:00 AM CDT [facility] MCH 28.2 27.0 - 31.0 PG 12/07/2016 7:00 AM CDT [facility] MCHC 31.1(L) 32.0 - 36.0 G/DL 12/07/2016 7:00 AM CDT [facility] RDW 14.6(H) 11.5 - 14.5 % 12/07/2016 7:00 AM CDT [facility] PLT 193 130 - 400 x10'3/uL 12/07/2016 7:00 AM CDT [facility] MPV 9.9 9.3 - 12.2 FL 12/07/2016 7:00 AM CDT [facility] IMMATURE GRANS % 0.2 0.0 - 1.0 % 12/07/2016 7:00 AM CDT [facility] NEUTROPHILS % 56.9 43.0 - 65.0 % 12/07/2016 7:00 AM CDT [facility] LYMPHOCYTES % 29.8 20.0 - 46.0 % 12/07/2016 7:00 AM CDT [facility] MONOCYTES % 12.1(H) 5.0 - 12.0 % 12/07/2016 7:00 AM CDT [facility] EOSINOPHILS 0.7(L) 1.0 - 3.0 % 12/07/2016 7:00 AM CDT [facility] BASOPHILS 0.3 0.0 - 1.0 % 12/07/2016 7:00 AM CDT [facility] WHOLE BLOOD SPECIMEN / Unknown 12/07/2016 6:15 AM CDT 12/07/2016 6:18 AM CDT us Generic Conversion [facility] Final R esult [facility] [address] [place] [address], [place] [phone] * (ABNORMAL) BASIC METABOLIC PANEL (12/07/2016 6:15 AM CDT) GLUCOSE 149(H) 70 - 99 mg/dL 12/07/2016 7:28 AM CDT [facility] BUN 10 8 - 23 mg/dL 12/07/2016 7:28 AM CDT [facility] CREATININE S/P/B 0.53(L) 0.60 - 1.10 mg/dL 12/07/2016 7:28 AM CDT [facility] SODIUM S/P/B 137 136 - 145 mmol/L 12/07/2016 7:28 AM CDT [facility] POTASSIUM S/P/B 4.1 3.5 - 5.1 mmol/L 12/07/2016 7:28 AM CDT [facility] CHLORIDE S/P/B 104 98 - 107 mmol/L 12/07/2016 7:28 AM CDT [facility] CO2 21(L) 22 - 29 mmol/L 12/07/2016 7:28 AM CDT [facility] CALCIUM S/P/B 8.1(L) 8.6 - 10.2 mg/dL 12/07/2016 7:28 AM CDT [facility] ANION GAP 16 8 - 20 12/07/2016 7:28 AM CDT [facility] EGFR NON-AFR. AMER. >60 >60 mL/min/1.7 3m'2 12/07/2016 7:28 AM CDT [facility] EGFR AFR. AMER. >60 >60 mL/min/1.7 '2 12/07/2016 7:28 AM CDT [facility] Comment: NOTE: eGFR is not calculated for patients <18 years of age. This is an estimated GFR (CKD EPI) and should not be used for calculating drug doses. 12/07/2016 6:15 AM CDT 12/07/2016 6:18 AM CDT us Generic Conversion Md [facility] Final R esult Performing Organization Address City/[facility]/ZIP Co de Phone Number [facility] [address] [place] [address], [place] [phone] * (ABNORMAL) POCT glucose (12/07/2016 5:40 AM CDT) [facility] GLUCOSE POC 147(H) 70 - 99 mg/dL 12/07/2016 6:55 AM CDT [facility] ORDERS INTERFACE 12/07/2016 5:40 AM CDT 12/07/2016 6:54 AM CDT us Generic Conversion Md [facility] POCT ORDERABLES - DEVIC E Final Result [facility] ORDERS INTERFACE [place] * (ABNORMAL) POCT glucose (12/06/2016 10:17 PM CDT) GLUCOSE POC 194(H) 70 - 99 mg/dL 12/06/2016 10:49 PM CDT [facility] ORDERS INTERFACE 12/06/2016 10:1 7 PM CDT 12/06/2016 10:49 PM CDT us Generic Conversion Md [facility] POCT ORDERABLES - DEVIC E Final Result Performing Organization Address City/[facility]/ZIP Co de Phone Number [facility] ORDERS INTERFACE US * (ABNORMAL) POCT glucose (12/06/2016 3:45 PM CDT) GLUCOSE POC 164(H) 70 - 99 mg/dL 12/06/2016 4:14 PM CDT [facility] ORDERS INTERFACE 12/06/2016 3:45 PM CDT 12/06/2016 4:14 PM CDT us Generic Conversion Md [facility] POCT ORDERABLES - DEVIC E Final Result Performing Organization Address [facility] de Phone Number [facility] ORDERS INTERFACE US * (ABNORMAL) POCT glucose (12/06/2016 11:45 AM CDT) GLUCOSE POC 116(H) 70 - 99 mg/dL 12/06/2016 11:50 AM CDT [facility] ORDERS INTERFACE 12/06/2016 11:4 5 AM CDT 12/06/2016 11:50 AM CDT us Generic Conversion Md [facility] POCT ORDERABLES - DEVIC E Final Result Performing Organization Address City/[facility] Co de Phone Number [facility] ORDERS INTERFACE US * INFLUENZA A & B (12/06/2016 10:13 AM CDT) SPECIMEN TYPE NASOPHARYNGEAL SWAB 12/06/2016 9:46 AM CDT [facility] INFLUENZA A NEGATIVE NEGATIVE 12/06/2016 10:48 AM CDT [facility] INFLUENZA B NEGATIVE NEGATIVE 12/06/2016 10:48 AM CDT [facility] Comment: Interpretation: Negative for Influenza [...] testing with RT-PCR requires a separate order. 12/06/2016 10:1 3 AM CDT 12/06/2016 10:19 AM CDT us Generic Conversion Md [facility] MICROBIOLOGY - GENERAL ORDERABLES Final Result [facility] [address] [place] [address], * (ABNORMAL) BASIC METABOLIC PANEL (12/06/2016 7:20 AM CDT) GLUCOSE 168(H) 70 - 99 mg/dL 12/06/2016 9:56 AM CDT [facility] BUN 14 8 - 23 mg/dL 12/06/2016 9:56 AM CDT [facility] CREATININE S/P/B 0.74 0.60 - 1.10 mg/dL 12/06/2016 9:56 AM CDT [facility] SODIUM S/P/B 135(L) 136 - 145 mmol/L 12/06/2016 9:56 AM CDT [facility] POTASSIUM S/P/B 4.3 3.5 - 5.1 mmol/L 12/06/2016 9:56 AM CDT [facility] CHLORIDE S/P/B 102 98 - 107 mmol/L 12/06/2016 9:56 AM CDT [facility] CO2 20(L) 22 - 29 mmol/L 12/06/2016 9:56 AM CDT [facility] CALCIUM S/P/B 8.3(L) 8.6 - 10.2 mg/dL 12/06/2016 9:56 AM CDT [facility] ANION GAP 17 8 - 20 12/06/2016 9:56 AM CDT [facility] EGFR NON-AFR. AMER. >60 >60 mL/min/1.7 '2 12/06/2016 9:56 AM CDT [facility] EGFR AFR. AMER. >60 >60 mL/min/1.7 '2 12/06/2016 9:56 AM CDT [facility] Comment: NOTE: eGFR is not calculated for patients <18 years of age. This is an estimated GFR (CKD EPI) and should not be used for calculating drug doses. 12/06/2016 7:20 AM CDT 12/06/2016 9:35 AM CDT us Generic Conversion [facility] Final R esult [facility] [address] [place] [address], [place] [phone] * (ABNORMAL) CBC W/DIFF AUTOMATED (12/06/2016 7:20 AM CDT) WBC 7.6 4.8 - 10.8 x10'3/uL 12/06/2016 7:39 AM CDT [facility] RBC 3.92(L) 4.20 - 5.40 x10'6/uL 12/06/2016 7:39 AM CDT [facility] HGB 11.3(L) 12.0 - 16.0 G/DL 12/06/2016 7:39 AM CDT [facility] HCT 35.1(L) 38.0 - 48.0 % 12/06/2016 7:39 AM CDT [facility] MCV 89.5 81.0 - 99.0 FL 12/06/2016 7:39 AM CDT [facility] MCH 28.8 27.0 - 31.0 PG 12/06/2016 7:39 AM CDT [facility] MCHC 32.2 32.0 - 36.0 G/DL 12/06/2016 7:39 AM CDT [facility] RDW 14.3 11.5 - 14.5 % 12/06/2016 7:39 AM CDT [facility] PLT 223 130 - 400 x10'3/uL 12/06/2016 7:39 AM CDT [facility] MPV 9.7 9.3 - 12.2 FL 12/06/2016 7:39 AM CDT [facility] IMMATURE GRANS % 0.4 0.0 - 1.0 % 12/06/2016 7:39 AM CDT [facility] NEUTROPHILS % 74.6(H) 43.0 - 65.0 % 12/06/2016 7:39 AM CDT [facility] LYMPHOCYTES % 14.0(L) 20.0 - 46.0 % 12/06/2016 7:39 AM CDT [facility] MONOCYTES % 10.5 5.0 - 12.0 % 12/06/2016 7:39 AM CDT [facility] EOSINOPHILS 0.4(L) 1.0 - 3.0 % 12/06/2016 7:39 AM CDT [facility] BASOPHILS 0.1 0.0 - 1.0 % 12/06/2016 7:39 AM CDT [facility] WHOLE BLOOD SPECIMEN / Unknown 12/06/2016 7:20 AM CDT 12/06/2016 7:21 AM CDT us Generic Conversion [facility] Final R esult [facility] [address] [place] [address], [place] [phone] * (ABNORMAL) POCT glucose (12/06/2016 5:55 AM CDT) GLUCOSE POC 155(H) 70 - 99 mg/dL 12/06/2016 6:44 AM CDT [facility] ORDERS INTERFACE 12/06/2016 5:55 AM CDT 12/06/2016 6:44 AM CDT us Generic Conversion Md [facility] POCT ORDERABLES - DEVIC E Final Result [facility] ORDERS INTERFACE US * MRSA SCREENING (12/06/2016 2:30 AM CDT) SPEC DESCRIPTION NASAL 12/06/2016 2:30 AM CDT [facility] SPECIAL REQUESTS NO SPECIAL REQUEST 12/06/2016 2:30 AM CDT [facility] CULTURE RESULT METHICILLIN RESISTANT STAPH AUREUS PRESENT FOLLOW ISOLATION PROTOCOL. 12/07/2016 7:41 AM CDT [facility] CULTURE RESULT POSITIVE RESULTS NEED PHONED TO PHYSICIAN, BY NURSING STAFF, MALDONADO, FOR POSSIBLE DECOLONIZATION PROTOCOL ORDERS. 12/07/2016 7:41 AM CDT [facility] SPECIMEN FROM INTERNAL NOSE / Unknown 12/06/2016 2:30 AM CDT 12/06/2016 2:35 AM CDT us Generic Conversion Md [facility] MICRO[facility]OLOG[facility] - GENERAL ORDERABLES Final Result [facility] [address] [place] [address], [place] [phone] * (ABNORMAL) HEPATIC FUNCTION PANEL (12/05/2016 10:37 PM CDT) BILIRUBIN TOTAL S/P/B 0.6 0.2 - 1.2 mg/dL 12/05/2016 11:49 PM CDT [facility] ALKALINE PHOSPHATASE S/P/B 52 35 - 104 U/L 12/05/2016 11:49 PM CDT [facility] AST 30 0 - 32 U/L 12/05/2016 11:49 PM CDT [facility] TOTAL PROTEIN S/P/B 7.2 6.4 - 8.3 g/dL 12/05/2016 11:49 PM CDT [facility] ALBUMIN S/P/B 3.4(L) 3.5 - 5.2 g/dL 12/05/2016 11:49 PM CDT [facility] ALT 24 0 - 33 U/L 12/05/2016 11:49 PM CDT [facility] BILIRUBIN DIRECT S/P/B <0.20 0.0 - 0.3 mg/dL 12/05/2016 11:49 PM CDT [facility] BILIRUBIN INDIRECT S/P/B NOT CALCULATED 0.0 - 0.9 mg/dL 12/05/2016 11:49 PM CDT [facility] GLOBULIN 3.8(H) 2.3 - 3.6 g/dL 12/05/2016 11:49 PM CDT [facility] A/G RATIO 0.9(L) 1.0 - 2.0 12/05/2016 11:49 PM CDT [facility] 12/05/2016 10:3 7 PM CDT 12/05/2016 10:54 PM CDT us Generic Conversion [facility] Final R esult [facility] [address] [place] [address], * CULTURE, BACTERIA, BLOOD (12/05/2016 10:37 PM CDT) SPEC DESCRIPTION BLOOD 12/05/2016 10:07 PM CDT [facility] SPECIAL REQUESTS NO SPECIAL REQUEST 12/05/2016 10:07 PM CDT [facility] CULTURE RESULT NO GROWTH 5 DAYS 12/10/2016 12:41 PM CDT [facility] BLOOD SPECIMEN OBTAINED FOR BLOOD CULTURE / Unknown 12/05/2016 10:37 PM CDT 12/05/2016 10:54 PM CDT us Generic Conversion Md [facility] - GENERAL ORDERABLES Final Result Performing Organization Address [facility]/ZIP Co de Phone Number [facility] [address] [place] [address], * CULTURE, BACTERIA, BLOOD (12/05/2016 10:37 PM CDT) SPEC DESCRIPTION BLOOD 12/05/2016 10:07 PM CDT [facility] SPECIAL REQUESTS NO SPECIAL REQUEST 12/05/2016 10:07 PM CDT [facility] CULTURE RESULT NO GROWTH 5 DAYS 12/10/2016 12:41 PM CDT [facility] BLOOD SPECIMEN OBTAINED FOR BLOOD CULTURE / Unknown 12/05/2016 10:37 PM CDT 12/05/2016 10:54 PM CDT us Generic Conversion Md [facility] - GENERAL ORDERABLES Final Result [facility] [address] [place] [address], [place] [phone] * LIPASE (12/05/2016 10:37 PM CDT) LIPASE 20 13 - 60 U/L 12/05/2016 11:49 PM CDT [facility] SERUM OR PLASMA SPECIMEN / Unknown 12/05/2016 10:37 PM CDT 12/05/2016 10:54 PM CDT us Generic Conversion [facility] Final R esult Performing Organization Address [facility]/ZIP Co de Phone Number [facility] [address] [place] [address], [place] [phone] * CK (CPK) (12/05/2016 10:37 PM CDT) CPK 51 26 - 192 U/L 12/05/2016 11:49 PM CDT [facility] SERUM OR PLASMA SPECIMEN / Unknown 12/05/2016 10:37 PM CDT 12/05/2016 10:54 PM CDT us Generic Conversion [facility] Final R esult Performing Organization Address [facility] Co de Phone Number [facility] [address] [place] [address], [place] [phone] * (ABNORMAL) URINALYSIS WI REFLEX TO CULTURE (12/05/2016 6:12 PM CDT) SOURCE (FLUID) URINE CLEAN CATCH 12/05/2016 5:07 PM CDT [facility] COLOR (U) YELLOW 12/05/2016 6:33 PM CDT [facility] TRANSPARENCY CLEAR 12/05/2016 6:33 PM CDT [facility] SPECIFIC GRAVITY (U) 1.017 1.001 - 1.030 12/05/2016 6:33 PM CDT [facility] U PH 8.0 5.0 - 9.0 12/05/2016 6:33 PM CDT [facility] LEUKOCYTES (U) NEGATIVE NEGATIVE 12/05/2016 6:33 PM CDT [facility] NITRITES NEGATIVE NEGATIVE 12/05/2016 6:33 PM CDT [facility] PROTEIN (U) NEGATIVE <30 MG/DL 12/05/2016 6:33 PM CDT [facility] URINE GLUCOSE NEGATIVE NEGATIVE MG/DL 12/05/2016 6:33 PM CDT [facility] KETONES MG/DL (U) NEGATIVE NEGATIVE MG/DL 12/05/2016 6:33 PM CDT [facility] UROBILINOGEN NEGATIVE NEGATIVE MG/DL 12/05/2016 6:33 PM CDT [facility] BILIRUBIN (U) NEGATIVE NEGATIVE MG/DL 12/05/2016 6:33 PM CDT [facility] BLOOD (U) SMALL(A) NEGATIVE 12/05/2016 6:33 PM CDT [facility] CULTURE & SENSITIVITY INDICATED? CULTURE IS NOT INDICATED 12/05/2016 6:33 PM CDT [facility] SQUAMOUS EPITHELIALS MANY /LPF 12/05/2016 6:33 PM CDT [facility] MUCUS RARE /LPF 12/05/2016 6:33 PM CDT [facility] WBC/HPF 2 <6 /HPF 12/05/2016 6:33 PM CDT [facility] RBC/HPF 5 <6 /HPF 12/05/2016 6:33 PM CDT [facility] 12/05/2016 6:12 PM CDT 12/05/2016 6:16 PM CDT us Generic Conversion Md [facility] URINE ORDERABLES Final Result [facility] [address] [place] [address], * LACTIC ACID (12/05/2016 5:22 PM CDT) LACTIC ACID VENOUS 1.35 0.5 - 2.2 mmol/L 12/05/2016 5:44 PM CDT [facility] Comment: NOTE: Acetaminophen, N Acetyl p benzoquinone imine (NAPQI), N acetylcysteine (NAC), Metamizole, 4 Aminoantipyrine (4 AAP) and 4 Methylamino antipyrine (4 MAP) at high concentrations can cause falsely low results on Lactate, Uric Acid, Cholesterol, Triglyceride, HDL, and Direct LDL. PLASMA SPECIMEN / Unknown 12/05/2016 5:22 PM CDT 12/05/2016 5:24 PM CDT us Generic Conversion [facility] Final R esult [facility] [address] [place] [address], * (ABNORMAL) CBC W/DIFF AUTOMATED (12/05/2016 5:22 PM CDT) WBC 9.1 4.8 - 10.8 x10'3/uL 12/05/2016 5:28 PM CDT [facility] RBC 4.37 4.20 - 5.40 x10'6/uL 12/05/2016 5:28 PM CDT [facility] HGB 12.5 12.0 - 16.0 G/DL 12/05/2016 5:28 PM CDT [facility] HCT 38.7 38.0 - 48.0 % 12/05/2016 5:28 PM CDT [facility] MCV 88.6 81.0 - 99.0 FL 12/05/2016 5:28 PM CDT [facility] MCH 28.6 27.0 - 31.0 PG 12/05/2016 5:28 PM CDT [facility] MCHC 32.3 32.0 - 36.0 G/DL 12/05/2016 5:28 PM CDT [facility] RDW 13.8 11.5 - 14.5 % 12/05/2016 5:28 PM CDT [facility] PLT 265 130 - 400 x10'3/uL 12/05/2016 5:28 PM CDT [facility] MPV 9.4 9.3 - 12.2 FL 12/05/2016 5:28 PM CDT [facility] IMMATURE GRANS % 0.4 0.0 - 1.0 % 12/05/2016 5:28 PM CDT [facility] NEUTROPHILS % 84.1(H) 43.0 - 65.0 % 12/05/2016 5:28 PM CDT [facility] LYMPHOCYTES % 6.9(L) 20.0 - 46.0 % 12/05/2016 5:28 PM CDT [facility] MONOCYTES % 6.1 5.0 - 12.0 % 12/05/2016 5:28 PM CDT [facility] EOSINOPHILS 2.4 1.0 - 3.0 % 12/05/2016 5:28 PM CDT [facility] BASOPHILS 0.1 0.0 - 1.0 % 12/05/2016 5:28 PM CDT [facility] WHOLE BLOOD SPECIMEN / Unknown 12/05/2016 5:22 PM CDT 12/05/2016 5:25 PM CDT us Generic Conversion [facility] Final R esult [facility] [address] [place] [address], * (ABNORMAL) BASIC METABOLIC PANEL (12/05/2016 5:22 PM CDT) GLUCOSE 146(H) 70 - 99 mg/dL 12/05/2016 5:41 PM CDT [facility] BUN 9 8 - 23 mg/dL 12/05/2016 5:41 PM CDT [facility] CREATININE S/P/B 0.66 0.60 - 1.10 mg/dL 12/05/2016 5:41 PM CDT [facility] SODIUM S/P/B 137 136 - 145 mmol/L 12/05/2016 5:41 PM CDT [facility] POTASSIUM S/P/B 4.5 3.5 - 5.1 mmol/L 12/05/2016 5:41 PM CDT [facility] CHLORIDE S/P/B 100 98 - 107 mmol/L 12/05/2016 5:41 PM CDT [facility] CO2 26 22 - 29 mmol/L 12/05/2016 5:41 PM CDT [facility] CALCIUM S/P/B 9.4 8.6 - 10.2 mg/dL 12/05/2016 5:41 PM CDT [facility] ANION GAP 16 8 - 20 12/05/2016 5:41 PM CDT [facility] EGFR NON-AFR. AMER. >60 >60 mL/min/1.7 3m'2 12/05/2016 5:41 PM CDT [facility] EGFR AFR. AMER. >60 >60 mL/min/1.7 '2 12/05/2016 5:41 PM CDT [facility] Comment: NOTE: eGFR is not calculated for patients <18 years of age. This is an estimated GFR (CKD EPI) and should not be used for calculating drug doses. 12/05/2016 5:22 PM CDT 12/05/2016 5:25 PM CDT us Generic Conversion Md [facility] Final R esult [facility] [address] [place], [place] [address] [phone] documented in this encounter Visit Diagnoses Diagnosis Viral intestinal infection Intestinal infection due to other organism, not elsewhere classified documented in this encounter Care Teams Shank Archer Relationship Specialty Start Date End Date Lavonne Ram MD [address] [place] [address] PCP - General FAMILY PRACTICE 04/24/16 08/19/17 Meena Bansal MD [address] [address] [place] A[employer] Install[employer] CARDIOVASCULAR DISEASE 04/24/16 documented as of this encounter
--- OUTSIDE RECORDS SUMMARY | 2024-04-26 02:42 | XMS_ITS | Encounter Summary ---
Author Organization [facility] Address [address] [place] [address]. [place] [address] [place] [address] Care Team Providers Care Information Security Consultant Name Role Phone Meena Bansal MD Unavailable [phone] Justen Gale MD Primary Care Provider [phone] Reason for Referral * Imaging (Emergency) - Closed Specialty Diagnoses / Procedures Referred By Elyssa benavides Referred To Contact RADIOLOGY Procedures CT ABD+PEL W IV CON ONLY Sher Perry MD [address] [address] Phone: tel: fax: Referral ID Status Reason Start Date Expiration Date Visits Re quested Visits Authorized [id number] Closed 09/04/2018 10/06/2019 1 1 Reason for Visit * Reason Comments Abdominal Pain Encounter Details Date Type Department Care Team (Late st Contact Info) Description 09/04/2018 6:42 PM CDT - 09/05/2018 12:22 AM CDT Emergency [facility] [place] [address] Sher Perry MD [address] [address] Corby Toledo MD [address] [address] Abdominal Pain Discharge Disposition: Home or Self [...] Sexual Orientation Straight 03/18/2018 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 of 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 encounter Last Filed Vital Signs Vital Sign Reading Time Taken Comments Blood Pressure 124/82 09/04/2018 11:20 PM CDT Pulse 74 09/04/2018 11:20 PM CDT Temperature 36.8 ??C (98.2 ??F) 09/04/2018 6:22 PM CD T Respiratory Rate 18 09/04/2018 11:20 PM CDT Oxygen Saturation 95% 09/04/2018 11:00 PM CDT Inhaled Oxygen Concentration - - Weight 133.4 kg (294 lb) 09/04/2018 6:22 PM CDT Height 154.9 cm (5' 1 ) 09/04/2018 6:22 PM CDT Body Mass Index 55.55 09/04/2018 6:22 PM CDT documented in this encounter Functional [...] N Active documented in this encounter Discharge Instructions * Discharge Instructions* Corby Toledo MD - 09/05/2018 12:09 AM CDT Follow up with GI doctor and Primary doctor. * Attachments The following attachments cannot be sent through Care Everywhere. * Acute Abdomen (Belly Pain) (Maltese) documented in this encounter Medications at Time [...] 09/10/19 19 documented as of this encounter ED Notes * Corby Toledo MD - 09/04/2018 8:23 PM CDT ED NOTE Chief Complaint Chief Complaint Patient presents with ??? Abdominal Pain History of Present Illness 63y F here with c/o generalized abd pain. Symptoms first started last week. She was admitted at that time however no etiology found. She had felt better for a few days but now pain has returned. Painworse with eating. Has associated nausea. Had diarrhea initially, none currently. Medical History ALLERGIES: Allergies Allergen Reactions ??? [...] every 8 (eight) hours for 7 days. 08/31/18 09/07/18 Michelle Gr MD oxybutynin 5 MG tablet Take 5 [...] No Review of Systems Review of Systems Gastrointestinal: Positive for abdominal pain. Genitourinary: Negative for dysuria. All other systems reviewed and are negative. Physical Exam Filed Vitals: 09/04/18 1822 BP: (!) 137/96 Pulse: 96 Resp: 18 Temp: 98.2 ??F (36.8 ??C) TempSrc: Temporal SpO2: 97% Weight: 133.4 kg (294 lb) Height: 5' 1 (1.549 m) Physical Exam Constitutional: She appears well-developed and well-nourished. No distress. HENT: Head: Normocephalic. Eyes: Conjunctivae are normal. Neck: Neck supple. Cardiovascular: Normal rate, regular rhythm and normal heart sounds. Pulmonary/Chest: Effort normal and breath sounds normal. Abdominal: Soft. She exhibits no distension. There is no tenderness. There is no rebound and no guarding. Musculoskeletal: She exhibits no edema. Neurological: She is alert. Skin: Skin is warm and dry. Psychiatric: She has a normal mood and affect. Nursing note and vitals reviewed. Diagnostic Studies / Procedures ELECTROCARDIOGRAMS: No results found for this visit on 09/04/18. LABORATORY STUDIES: Results for orders placed or performed during the hospital encounter of 09/04/18 CBC W/DIFF AUTOMATED Result Value Ref Range WBC 11.4 (H) 4.5 - 11.0 x10'3/uL RBC 4.51 4.20 - 5.40 x10'6/uL HGB 12.7 12.0 - 16.0 G/DL HCT 40.7 38.0 - 48.0 % MCV 90.2 81.0 - 99.0 FL MCH 28.2 27.0 - 31.0 PG MCHC 31.2 (L) 32.0 - 36.0 G/DL RDW 14.0 11.5 - 14.5 % PLT 356 130 - 400 x10'3/uL MPV 10.2 9.3 - 12.2 FL DIFFERENTIAL TYPE AUTOMATED DIFFERENTIAL NEUTROPHILS 67.0 % LYMPHOCYTES 23.3 % MONOCYTES 6.3 % EOSINOPHILS 2.6 % BASOPHILS 0.4 % IMMATURE GRANS 0.4 % ABS. NEUTROPHILS TOTAL 7.65 1.80 - 7.70 x10'3/uL ABS. LYMPHOCYTES 2.66 1.00 - 4.80 x10'3/uL ABS. MONOCYTES 0.72 0.24 - 0.86 x10'3/uL ABS. EOSINOPHILS 0.30 0.04 - 0.36 x10'3/uL ABS. BASOPHILS 0.04 0.01 - 0.08 x10'3/uL ABS. IMMATURE GRANULOCYTES 0.05 0.00 - 0.49 x10'3/uL IMAGING STUDIES No orders to display ED Course / Medical Decision Making Pt signed out to me , at 2300, pending workup. Imaging, labs unremarkable and pt feeling better. Encouraged PCP f/u, and continuing home medications as recently prescribed and GI referral as arrangedpreviously from recent admission. Return advised if continued progressive symptoms, including pain,dehydration, refractory vomiting. -Kalen Toledo MD. 0200. 09/05/18. ED Course as of Sep 06 535MonSeptember 04, [id number] LIPASE [DM] ED Course User Index [DM] Sher Perry MD Medications sodium chloride 0.9% bolus infusion SOLN 1,000 mL (1,000 mLs Intravenous New Bag 09/04/182022) morphine injection 4 mg (4 mg Intravenous Given 09/04/182021) ondansetron (ZOFRAN) injection 4 mg (4 mg Intravenous Given 09/04/182021) Clinical Impression Abdominal pain (Primary) Current Discharge Medication List Disposition: Discharge Follow-Up: No follow-up provider specified. SHER PERRY MD 09/04/2018 Corby Toledo MD 09/05/18536 * HUMAIRA Ordaz - 09/04/2018 6:27 PM CDT [place], [place] EMERGENCY DEPARTMENT ENCOUNTER Medical Screening Examination 09/04/18 6:28 PM Chief Complaint : Abdominal Pain HPI : Karly Marques is a 63-year-old female who presents to the ER with c/o generalized abdominal pain that is persistent since previous admission. Pt reports nausea without vomiting. Pt reports diarrhea and constipation. She denies fever. Vital Signs: Filed Vitals: 09/04/181821 BP: (!) 137/96 Pulse: 96 Resp: 18 Temp: 98.2 ??F (36.8 ??C) TempSrc: Temporal SpO2: 97% Weight: 133.4 kg (294 lb) Height: 5' 1 (1.549 m) Physical exam: A brief physical exam was completed to facilitate/expedite patient care. Diffuse abdominal pain. Plan: Necessary labs/imaging/medications ordered to initiate pt care. HUMAIRA Ordaz 09/04/181827 Cosigned by Sher Perry MD at 09/06/2018 8:59 AM CDT * Brianne Robertson RN - 09/04/2018 6:26 PM CDT Pt to triage with complaint of abdominal pain that started 1 week ago, pt was seen and admitted here last week for symptoms and was Dc , pt reports pain started again and is worsening. BRIANNE ROBERTSON RN documented in this encounter Plan of Treatment Not on file documented as of this encounter Procedures Procedure Name Priority Date/Time Associated Diagnosis Comments CT ABD+PEL W CON STAT 09/04/2018 11:3 6 PM CDT COMPREHENSIVE METABOLIC PANEL STAT 09/04/2018 8:29 PM CDT LIPASE STAT 09/04/2018 8:29 PM CDT URINALYSIS WI REFLEX TO CULTURE STAT 09/04/2018 7:18 PM CDT URINE BACTERIA CULTURE Routine 9 7:18 PM CDT CBC W/DIFF AUTOMATED STAT 09/04/2018 7:11 PM CDT documented in this encounter Results * CT ABD+PEL W IV CON ONLY (09/04/2018 11:36 PM CDT) Anatomical Region Laterality Modality Abdomen Computed Tomogra phy 09/04/2018 11:4 7 PM CDT Narrative 09/04/2018 11:50 PM CDT EXAMINATION: CT ABDOMEN AND PELVIS WITH CONTRAST HISTORY: Persistent generalized abdominal pain with diarrhea and constipation. COMPARISON: CT 08/30/2018. TECHNIQUE: 3 mm axial images were obtained through the abdomen and pelvis following the administration of 100 MLS of ISOVUE-370 intravenous contrast through an existing IV line. Additional coronal reconstructions were performed. FINDINGS: ABDOMEN: Imaging of the lung bases demonstrates no airspace consolidation or effusions. Liver: Normal in size and CT density. No masses. Spleen: Normal size and CT density. Pancreas: Normal size and CT density. No duct dilatation. No masses. Adrenal Glands: Normal in size and CT density. No masses. Gallbladder and bile ducts: Cholecystectomy. No duct dilatation. Kidneys: Normal shape, size and position. No right or left hydronephrosis. Symmetric perfusion. No masses. Aorta: Patent. Normal in caliber. IVC: Patent. Normal in caliber. ?? GI Tract: No small bowel obstruction. No intraperitoneal ??or retroperitoneal adenopathy or hematoma. No ascites or pneumoperitoneum is seen. Operative changes of previous lower ventral abdominal wall mesh repair. PELVIS: Colon: Colonic diverticulosis without acute diverticulitis. Appendix: Normal. Urinary Bladder: Underdistended. Uterus & Adnexa: Unremarkable. No pelvic free fluid, hematoma, mass or adenopathy. BONES: Moderate spondylosis. No distinct destructive bony lesions. IMPRESSION: 1. No acute intra-abdominal or pelvic abnormality to account for reported symptoms. 2. No bowel obstruction or acute appendicitis. 3. No acute obstructive uropathy. A radiation dose lowering technique was used for this procedure, which may include, but is not limited to, dose reduction technique, automated exposure control, the use of iterative reconstruction, ALARA (As Low As Reasonably Achievable) techniques, and Image Gently techniques. Interpreted By: Tina Ariza MD, 09/04/2018 11:47 PM Procedure Note Prince Ariza MD - 09/04/2018 EXAMINATION: CT ABDOMEN AND PELVIS WITH CONTRAST HISTORY: Persistent generalized abdominal pain with diarrhea and constipation. COMPARISON: CT 08/30/2018. TECHNIQUE: 3 mm axial images were obtained through the abdomen and pelvis followingthe administration of 100 MLS of ISOVUE-370 intravenous contrast throughan existing IV line. Additional coronal reconstructions were performed. FINDINGS: ABDOMEN: Imaging of the lung bases demonstrates no airspace consolidation oreffusions. Liver: Normal in size and CT density. No masses. Spleen: Normal size and CT density. Pancreas: Normal size and CT density. No duct dilatation. No masses. Adrenal Glands: Normal in size and CT density. No masses. Gallbladder and bile ducts: Cholecystectomy. No duct dilatation. Kidneys: Normal shape, size and position. No right or left hydronephrosis.Symmetric perfusion. No masses. Aorta: Patent. Normal in caliber. IVC: Patent. Normal in caliber. GI Tract: No small bowel obstruction. No intraperitoneal or retroperitoneal adenopathy or hematoma. No ascites or pneumoperitoneum is seen. Operative changes of previous lower ventral abdominal wall mesh repair. PELVIS: Colon: Colonic diverticulosis without acute diverticulitis. Appendix: Normal. Urinary Bladder: Underdistended. Uterus & Adnexa: Unremarkable. No pelvic free fluid, hematoma, mass or adenopathy. BONES: Moderate spondylosis. No distinct destructive bony lesions. IMPRESSION: 1. No acute intra-abdominal or pelvic abnormality to account for reportedsymptoms. 2. No bowel obstruction or acute appendicitis. 3. No acute obstructive uropathy. A radiation dose lowering technique was used for this procedure, which mayinclude, but is not limited to, dose reduction technique, automatedexposure control, the use of iterative reconstruction, ALARA (As Low AsReasonably Achievable) techniques, and Image Gently techniques. Interpreted By: Tina Ariza MD, 09/04/2018 11:47 PM us Sher Perry MD CT Final Resul t * LIPASE (09/04/2018 8:29 PM CDT) Pathologist [facility] LIPASE 114 73 - 393 UNITS/L 09/04/2018 9:31 PM CDT [facility] 09/04/2018 8:29 PM CDT us Sher Perry MD LABORATORY Final Resul t [facility] [address] [place] [address], [place] [phone] * (ABNORMAL) COMPREHENSIVE METABOLIC PANEL (09/04/2018 8:29 PM CDT) GLUCOSE 171(H) 70 - 99 MG/DL 09/04/2018 9:31 PM [facility] BUN 14 7 - 18 MG/DL 09/04/2018 9:31 PM [facility] CREATININE S/P/B 0.94 0.55 - 1.02 MG/DL 09/04/2018 9:31 PM [facility] SODIUM S/P/B 140 136 - 145 MMOL/L 09/04/2018 9:31 PM [facility] POTASSIUM S/P/B 4.8 3.5 - 5.1 MMOL/L 09/04/2018 9:31 PM [facility] Comment:SLIGHT HEMOLYSIS, RE SULT MAY BE AFFECTED. CHLORIDE S/P/B 105 100 - 108 MMOL/L 09/04/2018 9:31 PM [facility] CO2 29.3 21 - 32 MMOL/L 09/04/2018 9:31 PM [facility] CALCIUM S/P/B 9.6 8.5 - 10.1 MG/DL 09/04/2018 9:31 PM [facility] BILIRUBIN TOTAL S/P/B 0.5 0.2 - 1.2 MG/DL 09/04/2018 9:31 PM [facility] TOTAL PROTEIN S/P/B 8.3(H) 6.4 - 8.2 G/DL 09/04/2018 9:31 PM [facility] ALBUMIN S/P/B 3.1(L) 3.4 - 5.0 G/DL 09/04/2018 9:31 PM [facility] AST 41(H) 15 - 37 U/L 09/04/2018 9:31 PM [facility] Comment:SLIGHT HEMOLYSIS, RE SULT MAY BE AFFECTED. ALT 29 14 - 55 U/L 09/04/2018 9:31 PM [facility] ALKALINE PHOSPHATASE S/P/B 91 50 - 136 U/L 09/04/2018 9:31 PM CDT [facility] ANION GAP 10.5 8 - 20 MMOL/L 09/04/2018 9:31 PM CDT [facility] BUN CREATININE RATIO 14.8 6 - 26 09/04/2018 9:31 PM CDT [facility] A/G RATIO 0.6(L) 1.0 - 2.0 RATIO 09/04/2018 9:31 PM CDT [facility] EGFR NON-AFR. AMER. 65(L) >90 ML/MIN/1.7 3 M2 09/04/2018 9:31 PM CDT [facility] EGFR AFR. AMER. 75(L) >90 ML/MIN/1.7 3 M2 09/04/2018 9:31 PM CDT [facility] Comment: NOTE: eGFR is not calculated for patients <18 years of age. This is an estimated GFR (CKD EPI) and should not be used for calculating drug doses. 09/04/2018 8:29 PM CDT Sher Perry MD LABORATORY Final Resul t [facility] [address] [place] [address], * CULTURE URINE (09/04/2018 7:18 PM CDT) SPEC DESCRIPTION URINE CLEAN CATCH 09/04/2018 10:20 PM CDT [facility] SPECIAL REQUESTS NO SPECIAL REQUEST 09/04/2018 10:20 PM CDT [facility] CULTURE RESULT POLYMICROBIAL GROWTH CONSISTENT WITH NORMAL GENITAL YESENIA. ?? SUSCEPTIBILITIES NOT ROUTINELY PERFORMED. 09/07/2018 9:33 AM CDT [facility] URINE SPECIMEN OBTAINED BY CLEAN CATCH PROCEDURE / Unknown 09/04/2018 7:18 PM CDT 09/04/2018 10:18 PM CDT [facility]- MICROBIOLOGY - GENERAL OR DERABLES Final Result [facility] [address] [place] [address], * (ABNORMAL) URINALYSIS WI REFLEX TO CULTURE (09/04/2018 7:18 PM CDT) SPECIMEN TYPE URINE CLEAN CATCH 09/04/2018 7:18 PM CDT [facility] COLOR (U) YELLOW 09/04/2018 8:29 PM CDT [facility] TRANSPARENCY CLEAR 09/04/2018 8:29 PM CDT [facility] SPECIFIC GRAVITY (U) 1.019 1.001 - 1.030 09/04/2018 8:29 PM CDT [facility] U PH 5.0 5.0 - 9.0 09/04/2018 8:29 PM CDT [facility] LEUKOCYTES (U) TRACE(A) NEGATIVE 09/04/2018 8:29 PM CDT [facility] NITRITES NEGATIVE NEGATIVE 09/04/2018 8:29 PM CDT [facility] PROTEIN (U) NEGATIVE <30 MG/DL 09/04/2018 8:29 PM CDT [facility] URINE GLUCOSE NEGATIVE NEGATIVE MG/DL 09/04/2018 8:29 PM CDT [facility] KETONES MG/DL (U) NEGATIVE NEGATIVE MG/DL 09/04/2018 8:29 PM CDT [facility] UROBILINOGEN NEGATIVE NEGATIVE MG/DL 09/04/2018 8:29 PM CDT [facility] BILIRUBIN (U) NEGATIVE NEGATIVE MG/DL 09/04/2018 8:29 PM CDT [facility] BLOOD (U) MODERATE(A) NEGATIVE 09/04/2018 8:29 PM CDT [facility] CULTURE & SENSITIVITY INDICATED? SPECIMEN SETUP FOR CULTURE 09/04/2018 8:29 PM CDT [facility] SQUAMOUS EPITHELIALS RARE /LPF 09/04/2018 8:30 PM CDT [facility] MUCUS RARE /LPF 09/04/2018 8:30 PM CDT [facility] WBC/HPF 6(H) <6 /HPF 09/04/2018 8:30 PM CDT [facility] RBC/HPF 5 <6 /HPF 09/04/2018 8:30 PM CDT [facility] URINE SPECIMEN OBTAINED BY CLEAN CATCH PROCEDURE / Unknown 09/04/2018 7:18 PM CDT us [facility] HADOOP INFRASTRUCTURE ARCHITECT-BC URINE ORDERABLES Final Re sult [facility] [address] [place] [address], [place] [phone] * (ABNORMAL) CBC W/DIFF AUTOMATED (09/04/2018 7:11 PM CDT) WBC 11.4(H) 4.5 - 11.0 x10'3/uL 09/04/2018 7:50 PM CDT [facility] RBC 4.51 4.20 - 5.40 x10'6/uL 09/04/2018 7:50 PM CDT [facility] HGB 12.7 12.0 - 16.0 G/DL 09/04/2018 7:50 PM CDT [facility] HCT 40.7 38.0 - 48.0 % 09/04/2018 7:50 PM CDT [facility] MCV 90.2 81.0 - 99.0 FL 09/04/2018 7:50 PM CDT [facility] MCH 28.2 27.0 - 31.0 PG 09/04/2018 7:50 PM CDT [facility] MCHC 31.2(L) 32.0 - 36.0 G/DL 09/04/2018 7:50 PM CDT [facility] RDW 14.0 11.5 - 14.5 % 09/04/2018 7:50 PM CDT [facility] PLT 356 130 - 400 x10'3/uL 09/04/2018 7:50 PM CDT [facility] MPV 10.2 9.3 - 12.2 FL 09/04/2018 7:50 PM CDT [facility] DIFFERENTIAL TYPE AUTOMATED DIFFERENTIAL 09/04/2018 7:50 PM CDT [facility] NEUTROPHILS % 67.0 % 09/04/2018 7:50 PM CDT [facility] LYMPHOCYTES % 23.3 % 09/04/2018 7:50 PM CDT [facility] MONOCYTES % 6.3 % 09/04/2018 7:50 PM CDT [facility] EOSINOPHILS 2.6 % 09/04/2018 7:50 PM CDT [facility] BASOPHILS 0.4 % 09/04/2018 7:50 PM CDT [facility] IMMATURE GRANS % 0.4 % 09/05/19 19 7:50 PM CDT [facility] ABS. NEUTROPHILS TOTAL 7.65 1.80 - 7.70 x10'3/uL 09/04/2018 7:50 PM CDT [facility] ABS. LYMPHOCYTES 2.66 1.00 - 4.80 x10'3/uL 09/04/2018 7:50 PM CDT [facility] ABS. MONOCYTES 0.72 0.24 - 0.86 x10'3/uL 09/04/2018 7:50 PM CDT [facility] ABS. EOSINOPHILS 0.30 0.04 - 0.36 x10'3/uL 09/04/2018 7:50 PM CDT [facility] ABS. BASOPHILS 0.04 0.01 - 0.08 x10'3/uL 09/04/2018 7:50 PM CDT [facility] ABS. IMMATURE GRANULOCYTES 0.05 0.00 - 0.49 x10'3/uL 09/04/2018 7:50 PM CDT [facility] 09/04/2018 7:11 PM CDT [facility] Final Res ult [facility] [address] [place] [address], documented in this encounter Visit Diagnoses Diagnosis Abdominal pain- Primary Abdominal pain, unspecified site documented in this encounter Administered Medications Inactive Administered Medications - up to 3 most recent administrations Medication Order MAR Action Action Date Dose Rate Site iopamidol (ISOVUE-370) 76 % injection 100 mL 100 mL, Intravenous, IMG once as needed, Contrast, 1 dose, Starting on Mon09/04/18 at 2336, Until Mon09/04/18 at 2337 Given 09/04/2018 11:37 PM CDT 100 mLs Right Arm morphine injection 4 mg 4 mg, Intravenous, Once, 1 dose, On Mon09/04/18 at 1830 Given 09/04/2018 8:22 PM CDT 4 mg morphine injection 4 mg 4 mg, Intravenous, Once, 1 dose, On Mon09/04/18 at 2200 Given 09/04/2018 10:15 PM CDT 4 mg ondansetron (ZOFRAN) injection 4 mg 4 mg, Intravenous, Once, 1 dose, On Mon09/04/18 at 1830, IV push over 2-5 minutes. Given 09/04/2018 8:22 PM CDT 4 mg sodium chloride 0.9% bolus infusion SOLN 1,000 mL 1,000 mL, Intravenous, Administer over 15 Minutes, Once, 1 dose, On Mon09/04/18 at 1830 New Bag 09/04/2018 8:23 PM CDT 1,000 mLs documented in this encounter Active and Recently Administered Medications Times are shown in CDT. Scheduled Medication Order 09/03/2018 09/04/2018 09/05/2018 morphine injection 4 mg (COMPLETED) 4 mg, Intravenous, Once, 1 dose, On Mon09/04/18 at 1830 2021 (Given - Provider: Yves Rhoades RN) morphine injection 4 mg (COMPLETED) 4 mg, Intravenous, Once, 1 dose, On Mon09/04/18 at 2200 2215 (Given - Provider: Yves Rhoades RN) ondansetron (ZOFRAN) injection 4 mg (COMPLETED) 4 mg, Intravenous, Once, 1 dose, On Mon09/04/18 at 1830, IV push over 2-5 minutes. 2021 (Given - Provider: Yves Rhoades RN) sodium chloride 0.9% bolus infusion SOLN 1,000 mL (COMPLETED) 1,000 mL, Intravenous, Administer over 15 Minutes, Once, 1 dose, On Mon09/04/18 at 1830 2022 (New Bag - Provider: Ceci Rhoades RN)2127 (Infusion Stop Time - Provider: Ceci Rhoades RN) PRN Medication Order 09/03/2018 09/04/2018 09/05/2018 iopamidol (ISOVUE-370) 76 % injection 100 mL (COMPLETED) 100 mL, Intravenous, IMG once as needed, Contrast, 1 dose, Starting on e 09/04/18 at 2336, Until e 09/04/18 at 2337 2337 (Given - Provider: Wilfrido Lemons, RTR) documented in this encounter Additional Health Concerns Infection Onset Date Last Indicated Resolved Time MRSA Comment:MRSA nares pos. 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 [id number] [place] [address] PCP - General FAMILY PRACTICE 08/20/17 Meena Bansal MD [facility]. [facility] [address] [place] [address] José Luis Rock Singer CARDIOVASCULAR DISEASE 04/24/16 documented as of this encounter
--- OUTSIDE RECORDS SUMMARY | 2024-04-26 02:42 | XMS_ITS | Encounter Summary ---
Author Organization [facility] Address [address] [place] [address]. [place] [address] [place] [address] Care Team Providers Care Associate Chief Nurse Name Role Phone Lavonne Ram MD Primary Care Provider [phone] Meena Bansal MD Unavailable [phone] Encounter Details Date Type Department Care Team (Late st Contact Info) Description 11/01/2016 Orders Only [facility] [address] [place] [address] Nayeli Navarro, DO [address] [facility] [address] [place] [address] Social History Tobacco Use Types Packs/Day Years Used Date Smoking Tobacco: Never Assessed Comments Unknown Sex and Gender Information Value Date Recorded Sex Assigned at Female 09/06/2020 12:50 AM CDT Legal Sex Female 10:47 AM CDT Gender Identity Female 09/06/2020 12:50 AM CDT Sexual Orientation 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 MOHSEN SALAZAR Ordering MD: NAYELI NAVARRO DO ?? Acct: [id number] ?? Admit/Service Date: 11/02/16 Discharge Date: ?? : 1955 Pt Type: ADM IN ?? Sex: F Ord Site: [facility] ?[address] [place] [address] ?Test Date: ?2016-11-01 ?? Pat Name: ? MOHSEN SALAZAR ?Department: CARD ?? 41 ? Room: ? D541 ?? Gender: ? Female ? Administrative Clerk: ?? DANIEL ?? : ?1955 ? Requested By: NAYELI NAVARRO ?? Order Number: [id number] ?Reading MD: ?? Shiyam Satwani ?Measurements ?? Intervals ?[place] ? Rate: ? 96 ? P: ?14 ?? [place]: ? 125 ?QRS: ?1 ?? QRSD: ? 91 ? T: ?54 ?? QT: ? 345 ? QTc: ?436 ?Interpretive Statements ?? SINUS RHYTHM WITH OCCASIONAL VENTRICULAR PREMATURE COMPLEXES ?? No previous ECG available for comparison ? Procedure Note Meena Bansal MD - 11/02/2016 MOHSEN SALAZAR MD: NAYELI NAVARRO DO Acct: [id number] Admit/Service Date: 11/02/16 Discharge Date: : 1955 Pt Type: ADM IN Sex: F Ord Site: [address] Test Date: 2016-11-01 Pat Name: MOHESN SALAZAR Department: CARD 41 Room: [facility] Gender: Female Administrative Clerk: DANIEL : 1955 Requested By: [facility] Order Number: [id number] Reading MD: Meena Bansal Measurements Intervals [place] Rate: 96 P: 14 [place]: 125 QRS: 1 QRSD: 91 T: 54 QT: 345 QTc: 436 Interpretive Statements SINUS RHYTHM WITH OCCASIONAL VENTRICULAR PREMATURE COMPLEXES No previous ECG available for comparison Nayeli Navarro DO [facility] Final Result [facility] RADIOLOG[facility] documented in this encounter Visit Diagnoses Not on filedocumented in this encounter Care Teams Associate Chief Nurse Relationship Specialty Start Date End Date Lavonne Ram MD [address] [place] [address] PCP - General FAMILY PRACTICE 04/24/16 08/19/17 Meena Bansal MD [address] [address] [place] [employer] Sales Supervisor CARDIOVASCULAR DISEASE 04/24/16 documented as of this encounter
--- OUTSIDE RECORDS SUMMARY | 2024-04-26 02:42 | XMS_ITS | Encounter Summary ---
Author Organization [facility] Address [address] [place] [address]. [place] [address] [place] [address] Care Team Providers Care Night Club Manager Name Role Phone Meena Bansal MD Unavailable Justen Gale MD Primary Care Provider [phone] Reason for Referral * Imaging (Emergency) - Closed Specialty Diagnoses / Procedures Referred By Elyssa t Referred To Contact Procedures CT HIP LT WO CON David Don MD Referral ID Status Reason Start Date Expiration Date Visits Re quested Visits Authorized [id number] Closed 06/15/2018 07/14/2019 1 1 ICAL INSTRUMENT REPAIR SPECIALIST Reason for Visit * Reason Comments Hip Pain Encounter Details Date Type Department Care Team (Late st Contact Info) Description 06/15/2018 7:40 PM SURGICAL INSTRUMENT REPAIR SPECIALIST - 06/15/2018 10:18 PM SURGICAL INSTRUMENT REPAIR SPECIALIST Emergency [facility] [place] [address] David Don MD Hip Pain Discharge Disposition: Home or Self Care [...] Sexual Orientation Straight 03/18/2018 3: 01 AM SURGICAL INSTRUMENT REPAIR SPECIALIST documented as of this encounter Last Filed Vital Signs Vital Sign Reading Time Taken Comments Blood Pressure 95/62 06/15/2018 9:58 PM SURGICAL INSTRUMENT REPAIR SPECIALIST Pulse 97 06/15/2018 9:58 PM SURGICAL INSTRUMENT REPAIR SPECIALIST Temperature 36.8 ??C (98.2 ??F) 06/15/2018 7:38 PM CS T Respiratory Rate 20 06/15/2018 9:58 PM SURGICAL INSTRUMENT REPAIR SPECIALIST Oxygen Saturation 94% 06/15/2018 9:58 PM SURGICAL INSTRUMENT REPAIR SPECIALIST Inhaled Oxygen Concentration - - Weight 130.2 kg (287 lb) 06/15/2018 7:38 PM SURGICAL INSTRUMENT REPAIR SPECIALIST Height 154.9 cm (5' 1 ) 06/15/2018 7:38 PM SURGICAL INSTRUMENT REPAIR SPECIALIST Body Mass Index 54.23 06/15/2018 7:38 PM SURGICAL INSTRUMENT REPAIR SPECIALIST documented in this encounter Discharge Instructions * Attachments The following attachments cannot be sent through Care Everywhere. * Hip Pain (Frisian) * Sacroiliac Joint Pain Discharge Instructions (Frisian) documented in this encounter Medications at Time [...] (two) times daily. 10/13/19 24 polyethylene glycol powder Take 17 g by mouth daily as needed (CONSTIPATION). 0 8 08/31/19 19 XARELTO 20 MG Tab tablet Take 20 mg by mouth every evening. 11 8 09/10/19 19 documented as of this encounter ED Notes * Antonio Boyle RN - 06/15/2018 10:18 PM CST Patient given discharge information. Patient instructed to f/u with PCP or return to the ER if symptoms persisted. Patient had no further questions. ICAL INSTRUMENT REPAIR SPECIALIST * David Don MD - 06/15/2018 8:43 PM CST Chief Complaint Chief Complaint Patient presents with ??? Hip Pain History of Present Illness 63-year-old female complaint of pain to left hip, patient states she fell 18 days ago after episodeof hypoglycemia, was seen in the hospital, x-rays done at that time showed no fracture, states had mild pain, for the past 2 days has been increased, no recent injury, states difficulty walking, taking [place] at home with little relief, no other symptoms. Medical History ALLERGIES: Allergies Allergen Reactions ??? Ativan [Lorazepam] Hyperactive Aggrevates restless leg syndrome ??? Cephalosporins Anaphylaxis ??? Rocephin [Ceftriaxone] Shortness of Breath ??? Oxycodone Vomiting ??? Reglan [Metoclopramide] Hyperactive MEDICATIONS: Prior to Admission medications Medication Sig Start Date End Date Taking? Authorizing Provider exemestane 25 MG tablet Take 25 mg by mouth nightly at bedtime. Give with food 08/09/17 Doc Abstract hydrocodone-acetaminophen 5-325 MG tablet Take 1 tablet by mouth 3 (three) times daily as needed for Pain. Doc Abstract insulin glargine 100 UNIT/ML injection (VIAL) Inject 50 Units into the skin every morning. Doc Abstract insulin lispro 100 UNIT/ML injection (VIAL) Inject 15 Units into the skin. Patient also uses sliding scale. Doc Abstract oxybutynin 5 MG tablet Take 5 mg by mouth 2 (two) times daily. Doc Abstract polyethylene glycol powder Take 17 g by mouth daily as needed (CONSTIPATION). 08/15/17 Doc Abstract ROPINIROLE HYDROCHLORIDE 5 MG [...] Last attempt to quit: 03/23/1977 Years since quittin.2 ??? Smokeless tobacco: Never Used Substance Use Topics ??? Alcohol use: No ??? Drug use: No Review of Systems Review of Systems All other systems reviewed and are negative. Physical Exam Filed Vitals: 06/15/18 193 BP: (!) 161/92 Pulse: 100 Resp: 20 Temp: 98.2 ??F (36.8 ??C) SpO2: 100% Weight: 130.2 kg (287 lb) Height: 5' 1 (1.549 m) Physical Exam Constitutional: She is oriented to person, place, and time. She appears well- developed and well-nourished. HENT: Head: Normocephalic and atraumatic. Eyes: Conjunctivae are normal. Neck: Normal range of motion. Neck supple. Cardiovascular: Normal rate, regular rhythm and normal heart sounds. Pulmonary/Chest: Effort normal and breath sounds normal. Abdominal: Soft. She exhibits no distension. Musculoskeletal: Mild tenderness to left lateral hip, no obvious deformities, neurovascular intact distally Neurological: She is alert and oriented to person, place, and time. Skin: Skin is warm and dry. Psychiatric: She has a normal mood and affect. Diagnostic Studies / Procedures ELECTROCARDIOGRAMS: No results found for this visit on 06/15/18. LABORATORY STUDIES: No results found for this visit on 02/22/19. IMAGING STUDIES CT HIP LT WO CON Final Result by User, [id number] (06/15 2145) EXAMINATION: CT LEFT HIP WITHOUT CONTRAST COMPARISON: X-rays done earlier on same date. HISTORY: Trauma. Fall 3 weeks prior. Persistent left hip pain. TECHNIQUE: Noncontrast axial images were obtained through the left hip with additional coronal and sagittal reconstructions. FINDINGS: Degenerative narrowing and marginal osteophytic spurring of the left hip joint. No acute fracture or dislocation. No left hip joint effusion. Sclerotic changes at the partially visualized left sacroiliac joint suggesting sacroiliitis. Degenerative changes of the pubic symphysis. No pelvic hematoma. Visualized musculature are within normal limits in appearance. Note is made of the descending and sigmoid colonic diverticulosis. Urinary bladder well distended. Uterus and adnexa within normal limits in appearance. IMPRESSION: Osteophytic degenerative changes of the left hip joint without fracture or dislocation. Left sacroiliitis. Colonic diverticulosis. A radiation dose lowering technique was used for this procedure, which may include, but is not limited to, dose reduction technique, automated exposure control, the use of iterative reconstruction, ALARA (As Low As Reasonably Achievable) techniques, and Image Gently techniques. Interpreted By: Tina Ariza MD, 06/15/2018 9:42 PM XR HIP LT 2V Final Result by User, [id number] (06/15 2025) EXAMINATION: X-RAY LEFT HIP 2 VIEWS EXAM TIME: 2009 hours. COMPARISON: None available. HISTORY: Trauma. Fall 2 weeks prior. Persistent pain. TECHNIQUE: AP and lateral views of the left hip are submitted for evaluation. FINDINGS: Degenerative changes of the sacroiliac joints and pubic symphysis. Left hip joint intact. Subtle lucency through the greater trochanter suspicious for acute fracture. Otherwise, no acute fracture or dislocation observed. IMPRESSION: Subtle lucency through the left greater trochanter suspicious for acute fracture. Consider CT correlation for further evaluation. Interpreted By: Tina Ariza MD, 06/15/2018 8:23 PM ED Course / Medical Decision Making MDM Number of Diagnoses or Management Options Hip pain: Diagnosis management comments: X-ray showed possible fracture, CT scan showed no fracture, possiblesacroilitis, patient given analgesia, discharged home, follow-up with PMD. Clinical Impression None Disposition: Data Unavailable David Don MD 06/16/18 0118 ICAL INSTRUMENT REPAIR SPECIALIST * HUMAIRA Sandoval - 06/15/2018 7:49 PM CST [place], [place] EMERGENCY DEPARTMENT ENCOUNTER Medical Screening Examination 06/15/18 7:49 PM Chief Complaint : Hip Pain HPI : Karly Marques is a 63-year-old female who presents left hip pain. Patient reports she fell 3 weeks ago and there was some pain present but over the past few days the pain is gotten much worse. Patient reports it is becoming difficult to ambulate due to severe pain. Patient attempted to see PCP and has been playing phone tag. Denies other fall or injury Vital Signs: Filed Vitals: 06/15/188 BP: (!) 161/92 Pulse: 100 Resp: 20 Temp: 98.2 ??F (36.8 ??C) SpO2: 100% Weight: 130.2 kg (287 lb) Height: 5' 1 (1.549 m) Physical exam: A brief physical exam was completed to facilitate/expedite patient care. Mitchell findings include: Tearful, anxious, and left hip tenderness. BP slightly elevated Plan: Imaging was ordered to facilitate patient care and pain control HUMAIRA Sandoval 06/15/18 1950 Cosigned by David Don MD at 06/16/2018 1:00 AM SURGICAL INSTRUMENT REPAIR SPECIALIST ICAL INSTRUMENT REPAIR SPECIALIST ICAL INSTRUMENT REPAIR SPECIALIST * Vamshi Avila RN - 06/15/2018 7:39 PM CST Pt Ambulatory with a limp to the ED complaining of left hip pain that has been getting worse since a fall 3 weeks ago. Was seen at [place] that day and cleared, pt states pain is much worse and is having difficulty using leg. Denies numbness tingling distally. ICAL INSTRUMENT REPAIR SPECIALIST documented in this encounter Plan of Treatment Not on file documented as of this encounter Procedures Procedure Name Priority Date/Time Associated Diagnosis Comments CT HIP LT WO CON STAT 06/15/2018 9:29 PM SURGICAL INSTRUMENT REPAIR SPECIALIST XR HIP LT 2V STAT 06/15/2018 8:18 PM SURGICAL INSTRUMENT REPAIR SPECIALIST documented in this encounter Results * CT HIP LT WO CON (06/15/2018 9:29 PM SURGICAL INSTRUMENT REPAIR SPECIALIST) Anatomical Region Laterality Modality Hip Computed Tomogra phy 06/15/2018 9:42 PM SURGICAL INSTRUMENT REPAIR SPECIALIST Narrative 06/15/2018 9:46 PM SURGICAL INSTRUMENT REPAIR SPECIALIST EXAMINATION: CT LEFT HIP WITHOUT CONTRAST COMPARISON: X-rays done earlier on same date. HISTORY: Trauma. ??Fall 3 weeks prior. ??Persistent left hip pain. TECHNIQUE: Noncontrast axial images were obtained through the left hip with additional coronal and sagittal reconstructions. FINDINGS: Degenerative narrowing and marginal osteophytic spurring of the left hip joint. ??No acute fracture or dislocation. ??No left hip joint effusion. ??Sclerotic changes at the partially visualized left sacroiliac joint suggesting sacroiliitis. ??Degenerative changes of the pubic symphysis. ??No pelvic hematoma. ??Visualized musculature are within normal limits in appearance. ??Note is made of the descending and sigmoid colonic diverticulosis. ??Urinary bladder well distended. ??Uterus and adnexa within normal limits in appearance. IMPRESSION: Osteophytic degenerative changes of the left hip joint without fracture or dislocation. Left sacroiliitis. Colonic diverticulosis. A radiation dose lowering technique was used for this procedure, which may include, but is not limited to, dose reduction technique, automated exposure control, the use of iterative reconstruction, ALARA (As Low As Reasonably Achievable) techniques, and Image Gently techniques. Interpreted By: Tina Ariza MD, 06/15/2018 9:42 PM Procedure Note Prince Ariza MD - 06/15/2018 EXAMINATION: CT LEFT HIP WITHOUT CONTRAST COMPARISON: X-rays done earlier on same date. HISTORY: Trauma. Fall 3 weeks prior. Persistent left hip pain. TECHNIQUE: Noncontrast axial images were obtained through the left hip withadditional coronal and sagittal reconstructions. FINDINGS: Degenerative narrowing and marginal osteophytic spurring of the left hipjoint. No acute fracture or dislocation. No left hip joint effusion.Sclerotic changes at the partially visualized left sacroiliac jointsuggesting sacroiliitis. Degenerative changes of the pubic symphysis. Nopelvic hematoma. Visualized musculature are within normal limits inappearance. Note is made of the descending and sigmoid colonicdiverticulosis. Urinary bladder well distended. Uterus and adnexa withinnormal limits in appearance. IMPRESSION: Osteophytic degenerative changes of the left hip joint without fracture ordislocation. Left sacroiliitis. Colonic diverticulosis. A radiation dose lowering technique was used for this procedure, which mayinclude, but is not limited to, dose reduction technique, automatedexposure control, the use of iterative reconstruction, ALARA (As Low AsReasonably Achievable) techniques, and Image Gently techniques. Interpreted By: Tina Ariza MD, 06/15/2018 9:42 PM David Don MD CT Final Result * XR HIP LT 2V (06/15/2018 8:18 PM SURGICAL INSTRUMENT REPAIR SPECIALIST) Anatomical Region Laterality Modality Hip Radiographic Lizeth ging 06/15/2018 8:23 PM SURGICAL INSTRUMENT REPAIR SPECIALIST Narrative 06/15/2018 8:26 PM SURGICAL INSTRUMENT REPAIR SPECIALIST EXAMINATION: X-RAY LEFT HIP 2 VIEWS EXAM TIME: 2009 hours. COMPARISON: None available. HISTORY: Trauma. ??Fall 2 weeks prior. ??Persistent pain. TECHNIQUE: AP and lateral views of the left hip are submitted for evaluation. FINDINGS: Degenerative changes of the sacroiliac joints and pubic symphysis. ??Left hip joint intact. ??Subtle lucency through the greater trochanter suspicious for acute fracture. ??Otherwise, no acute fracture or dislocation observed. IMPRESSION: Subtle lucency through the left greater trochanter suspicious for acute fracture. Consider CT correlation for further evaluation. Interpreted By: Tina Ariza MD, 06/15/2018 8:23 PM Procedure Note Prince Ariza MD - 06/15/2018 EXAMINATION: X-RAY LEFT HIP 2 VIEWS EXAM TIME: 2009 hours. COMPARISON: None available. HISTORY: Trauma. Fall 2 weeks prior. Persistent pain. TECHNIQUE: AP and lateral views of the left hip are submitted for evaluation. FINDINGS: Degenerative changes of the sacroiliac joints and pubic symphysis. Lefthip joint intact. Subtle lucency through the greater trochantersuspicious for acute fracture. Otherwise, no acute fracture ordislocation observed. IMPRESSION: Subtle lucency through the left greater trochanter suspicious for acutefracture. Consider CT correlation for further evaluation. Interpreted By: Tina Ariza MD, 06/15/2018 8:23 PM Sarah Walker FURNACE CLEANER GENERAL IMAGING Final Re sult documented in this encounter Visit Diagnoses Diagnosis Hip pain- Primary Pain in joint, pelvic region and thigh documented in this encounter Administered Medications Inactive Administered Medications - up to 3 most recent administrations Medication Order MAR Action Action Date Dose Rate Site ketorolac (TORADOL) injection 15 mg 15 mg, Intramuscular, Once, 1 dose, On Mon06/15/18 at 2044, For IV administration, give over 15 seconds. Given 06/15/2018 8:54 PM SURGICAL INSTRUMENT REPAIR SPECIALIST 15 mg Other morphine injection 4 mg 4 mg, Intramuscular, Once, 1 dose, On Mon06/15/18 at 2044 Given 06/15/2018 8:54 PM SURGICAL INSTRUMENT REPAIR SPECIALIST 4 mg Other ondansetron (ZOFRAN-ODT) disintegrating tablet 4 mg 4 mg, Oral, Once, 1 dose, On Mon06/15/18 at 1999 Given 06/15/2018 8:04 PM SURGICAL INSTRUMENT REPAIR SPECIALIST 4 mg traMADol (ULTRAM) tablet 50 mg 50 mg, Oral, Once, 1 dose, On Mon06/15/18 at 1999 Given 06/15/2018 8:04 PM SURGICAL INSTRUMENT REPAIR SPECIALIST 50 mg documented in this encounter Active and Recently Administered Medications Times are shown in SURGICAL INSTRUMENT REPAIR SPECIALIST. Scheduled Medication Order 06/13/2018 06/14/2018 06/15/2018 ketorolac (TORADOL) injection 15 mg (COMPLETED) 15 mg, Intramuscular, Once, 1 dose, On Mon06/15/18 at 2044, For IV administration, give over 15 seconds. 2053 (Given - Provid er: Antonio Boyle RN) morphine injection 4 mg (COMPLETED) 4 mg, Intramuscular, Once, 1 dose, On Mon06/15/18 at 2044 2053 (Given - Provid er: Antonio Boyle RN) ondansetron (ZOFRAN-ODT) disintegrating tablet 4 mg (COMPLETED) 4 mg, Oral, Once, 1 dose, On Mon06/15/18 at 1999 2003 (Given - Provid er: Shravan Reed RN) traMADol (ULTRAM) tablet 50 mg (COMPLETED) 50 mg, Oral, Once, 1 dose, On Mon06/15/18 at 1999 2003 (Given - Provid er: Shravan Reed RN) documented in this encounter Additional Health Concerns Infection Onset Date Last Indicated Resolved Time MRSA Comment:mrsa nares pos. 02/201802/03/2017 02/03/2017 09/01/19 19 8:40 AM CDT documented as of this encounter Care Teams Night Club Manager Relationship Specialty Start Date End Date Justen Gale MD [place] [address] [address] [place], [place] [id number] PCP - General FAMILY PRACTICE 08/20/17 Meena Bansal MD [address] [place] [address] [place], [place] [id number] [place] [facility] Club Lounge Attendant CARDIOVASCULAR DISEASE 04/24/16 documented as of this encounter
--- OUTSIDE RECORDS SUMMARY | 2024-04-26 02:42 | XMS_ITS | Encounter Summary ---
Author Organization [facility] Address [address] [place] [address]. [place] [address] [place] [address] Care Team Providers Care Aerospace Quality Engineer Name Role Phone Meena Bansal MD Unavailable [phone] Justen Gale MD Primary Care Provider [phone] Reason for Referral * Imaging (Emergency) - Closed Specialty Diagnoses / Procedures Referred By Elyssa t Referred To Contact Procedures CT LUMB SPINE WO CON Kiesha Hall NP Referral ID Status Reason Start Date Expiration Date Visits Re quested Visits Authorized [id number] Closed 07/16/2018 08/17/2019 1 1 Reason for Visit * Reason Comments Back Pain Leg Pain Encounter Details Date Type Department Care Team (Late st Contact Info) Description 07/16/2018 9:28 PM CDT - 07/17/2018 1:[address] [facility] [place] [address] Melvin Patterson MD [address] [place] [id number] Back Pain; Leg Pain Discharge Disposition: Home or Self [...] Sexual Orientation Straight 03/18/2018 3: 01 AM [employer] documented as of this encounter Last Filed Vital Signs Vital Sign Reading Time Taken Comments Blood Pressure 109/65 07/17/2018 12:30 AM CDT Pulse 89 07/17/2018 12:24 AM CDT Temperature 37.2 ??C (98.9 ??F) 07/16/2018 9:07 PM CD T Respiratory Rate 18 07/17/2018 12:30 AM CDT Oxygen Saturation 95% 07/17/2018 12:30 AM CDT Inhaled Oxygen Concentration - - Weight - - Height 154.9 cm (5' 1 ) 07/16/2018 9:07 PM CDT Body Mass Index - - documented in this encounter Discharge Instructions * Discharge Instructions* Melvin Patterson MD - 07/17/2018 12:57 AM CDT Please followup with your primary care doctor for further care. Please come back to the ER if symptoms worsen, persist, or if you have any concerns. * Attachments The following attachments cannot be sent through Care Everywhere. * Urinary Tract Infection Discharge Instructions, Adult (Bahamian) * Radiculopathy (Bahamian) * Radiculopathy Discharge Instructions (Bahamian) documented in this encounter Medications at Time [...] by mouth nightly at bedtime. 3 8 diazepam 5 MG tablet Take 1 tablet (5 mg total) by mouth nightly as needed (Pain). 10 tablet 9 08/31/19 hydrocodone-acetam inophen 5-325 MG tablet Take 1-2 tablets by mouth every 4 (four) hours. 08/31/19 insulin glargine 100 UNIT/ML injection (VIAL) Inject 50 Units into the skin every morning. 08/31/19 oxybutynin 5 MG tablet Take 5 mg by mouth 2 (two) times daily. 10/13/19 polyethylene glycol powder Take 17 g by mouth daily as needed (CONSTIPATION). 0 8 08/31/19 sulfamethoxazole-t rimethoprim (BACTRIM DS) 800-160 MG tablet Take 1 tablet by mouth 2 (two) times daily for 7 days. 14 tablet 9 07/25/19 XARELTO 20 MG Tab tablet Take 20 mg by mouth every evening. 11 8 09/10/19 documented as of this encounter ED Notes * Melvin Patterson MD - 07/16/2018 11:48 PM CDT Chief Complaint Chief Complaint Patient presents with ??? Back Pain ??? Leg Pain History of Present Illness 63 yo female w/ pmhx of HTN, DM, previous DVT/PE on xarelto, previous breast ca s/p b/l mastectomy,previous known disc herniations c/o lower back pain. Per the patient she has been having lower michelle pain chronically which has worsened over the past 24hrs. Denies any recent falls or trauma. Denies any fever, cough, rhinorrhea, nasal congestion, sore throat. Denies any saddle anesthesia, bowel or bladder incontinence, or weakness in the b/l lower ext (despite what the triage note states). Has pain on movement of her b/l legs in the lower back. Tried hydrocodone at home w/o relief. Medical History ALLERGIES: Allergies Allergen Reactions ??? [...] Review of Systems Constitutional: Negative for fever. Respiratory: Negative for cough, chest tightness and shortness of breath. Cardiovascular: Negative for chest pain. Gastrointestinal: Negative for abdominal pain, diarrhea, nausea and vomiting. Musculoskeletal: Positive for arthralgias, back pain and myalgias. Neurological: Negative for light-headedness, numbness and headaches. All other systems reviewed and are negative. Physical Exam Filed Vitals: 07/16/18 2107 07/16/18 2254 BP: 121/80 120/76 Pulse: 90 89 Resp: 20 Temp: 98.9 ??F (37.2 ??C) TempSrc: Temporal SpO2: 100% 100% Height: 5' 1 (1.549 m) Physical Exam Constitutional: She appears well-developed and well-nourished. She appears distressed. Obese HENT: Head: Normocephalic and atraumatic. Eyes: Pupils are equal, round, and reactive to light. Neck: Neck supple. No tracheal deviation present. Cardiovascular: Normal rate, regular rhythm and normal heart sounds. Exam reveals no gallop and no friction rub. No murmur heard. Pulmonary/Chest: Effort normal and breath sounds normal. No respiratory distress. She has no wheezes. She has no rales. Abdominal: Soft. Bowel sounds are normal. She exhibits no distension. There is no tenderness. Thereis no rebound. Musculoskeletal: ttp to the left lower lumbar region. No midline ttp. No step offs. Able to flex and extend at the hips, knees, ankles, and toes. Pulses intact b/l. Sensation mildly decreased on the lateral aspect ofthe left leg compared to the right leg. Strength 5/5 b/l. Neurological: Awake and alert Skin: Skin is warm and dry. No erythema. Psychiatric: She has a normal mood and affect. Her behavior is normal. Diagnostic Studies / Procedures ELECTROCARDIOGRAMS: No results found for this visit on 07/16/18. LABORATORY STUDIES: Results for orders placed or performed during the hospital encounter of 07/16/18 CBC W/DIFF AUTOMATED Result Value Ref Range WBC 10.6 4.5 - 11.0 x10'3/uL RBC 4.64 4.20 - 5.40 x10'6/uL HGB 12.7 12.0 - 16.0 G/DL HCT 41.5 38.0 - 48.0 % MCV 89.4 80.0 - 94.0 FL MCH 27.4 27.0 - 31.0 PG MCHC 30.6 (L) 32.0 - 36.0 G/DL RDW 14.6 (H) 11.5 - 14.5 % PLT 317 130 - 400 x10'3/uL MPV 9.5 9.3 - 12.2 FL DIFFERENTIAL TYPE AUTOMATED DIFFERENTIAL NEUTROPHILS 62.2 % LYMPHOCYTES 26.1 % MONOCYTES 8.1 % EOSINOPHILS 3.0 % BASOPHILS 0.3 % IMMATURE GRANS 0.3 (H) 0 % ABS. NEUTROPHILS TOTAL 6.60 1.80 - 7.70 x10'3/uL ABS. LYMPHOCYTES 2.77 1.00 - 4.80 x10'3/uL ABS. MONOCYTES 0.86 0.24 - 0.86 x10'3/uL ABS. EOSINOPHILS 0.32 0.04 - 0.36 x10'3/uL ABS. BASOPHILS 0.03 0.01 - 0.08 x10'3/uL ABS. IMMATURE GRANULOCYTES 0.03 0.00 - 0.03 x10'3/uL COMPREHENSIVE METABOLIC PANEL Result Value Ref Range GLUCOSE 132 (H) 70 - 99 MG/DL BUN 24 (H) 7 - 18 MG/DL CREATININE 0.94 0.55 - 1.02 MG/DL SODIUM 138 136 - 145 MMOL/L POTASSIUM 4.6 3.5 - 5.1 MMOL/L CHLORIDE 105 100 - 108 MMOL/L CO2 28.7 21 - 32 MMOL/L CALCIUM 9.9 8.5 - 10.1 MG/DL TOTAL BILIRUBIN 0.4 0.2 - 1.2 MG/DL TOTAL PROTEIN 8.8 (H) 6.4 - 8.2 G/DL ALBUMIN 3.4 3.4 - 5.0 G/DL AST 18 15 - 37 U/L ALT 27 14 - 55 U/L ALK PHOS 95 50 - 136 U/L ANION GAP 8.9 8 - 20 MMOL/L BUN CREATININE RATIO 25.7 6 - 26 A/G RATIO 0.6 (L) 1.0 - 2.0 RATIO eGFR Non-Afr. Amer. 65 (L) >90 ML/MIN/1.73 M2 eGFR Afr. Amer. 75 (L) >90 ML/MIN/1.73 M2 URINALYSIS Result Value Ref Range Specimen Type URINE CLEAN CATCH COLOR YELLOW TRANSPARENCY CLEAR Specific Polo (U) 1.019 1.001 - 1.030 U PH 5.0 5.0 - 9.0 LEUKOCYTE ESTERASE MODERATE (A) NEGATIVE NITRITES NEGATIVE NEGATIVE PROTEIN, URINE NEGATIVE <30 MG/DL URINE GLUCOSE NEGATIVE NEGATIVE MG/DL U KETONES NEGATIVE NEGATIVE MG/DL UROBILINOGEN NEGATIVE NEGATIVE MG/DL Urine Bilirubin NEGATIVE NEGATIVE MG/DL BLOOD MODERATE (A) NEGATIVE CULTURE & SENSITIVITY INDICATED? SPECIMEN SETUP FOR CULTURE SQUAMOUS EPITHELIALS MODERATE /LPF MUCUS RARE /LPF HYALINE CASTS RARE /LPF WBC/HPF 14 (H) <6 /HPF RBC/HPF 1 <6 /HPF IMAGING STUDIES CT LUMB SPINE WO CON Final Result by User, [id number] (07/17 2135) EXAMINATION: CT OF THE LUMBAR SPINE WITHOUT CONTRAST COMPARISON: None Available. EXAM HISTORY: Worsening chronic lower back pain with lower extremity weakness. TECHNIQUE: 3 mm axial images were obtained through the lumbar spine without contrast and with coronal and sagittal reconstructions. FINDINGS: Multilevel lumbar spondylosis. Hypertrophic changes of the facet joints, bilaterally. A component of right L4-L5 neural foraminal narrowing. Vertebral body height and alignment is otherwise preserved. No compression fracture or significant malalignment. Visualized pedicles and transverse processes otherwise are preserved. Sclerosis of the bilateral sacroiliac joints. IMPRESSION: Multilevel lumbar spondylosis. Right L4-L5 neural foraminal narrowing. No acute fracture or malalignment. Bilateral sacroiliitis. A radiation dose lowering technique was used for this procedure, which may include, but is not limited to, dose reduction technique, automated exposure control, the use of iterative reconstruction, ALARA (As Low As Reasonably Achievable) techniques, and Image Gently techniques. Interpreted By: Tina Ariza MD, 07/16/2018 9:33 PM ED Course / Medical Decision Making MDM Number of Diagnoses or Management Options Diagnosis management comments: 63 yo female w/ lower back pain and UTI based on urine sent prior brandon exam Ct appreciated. Will give pain meds and re-eval and give abx. Patient feels better - able to ambulate in the ed w/o difficulties. 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 Pt reports hx of chronic back pain. States pain became worse last night into today. Reports legs become weak when walking. States she was diagnosed with a UTI a month ago. * Kiesha Hall NP - 07/16/2018 9:09 PM CDT [place], [place] EMERGENCY DEPARTMENT ENCOUNTER Medical Screening Examination 07/16/18 9:09 PM Chief Complaint : No chief complaint on file. HPI : Karly Marques is a 63-year-old female with hx of chronic back pain who presents with c/o worsening of low back pain with weakness to bilateral LEs for 24 hours. I can barely walk or get upfrom a chair . Sees pain management. Not able to see her for 2 days. Takes vicodin at home. Recently had UTI. No urinary symptoms today. Vital Signs: Filed Vitals: 07/16/182106 Pulse: 90 Resp: 20 Temp: 98.9 ??F (37.2 ??C) TempSrc: Temporal SpO2: 100% Height: 5' 1 (1.549 m) Physical exam: A brief physical exam was completed to facilitate/expedite patient care. Plan: Necessary labs/imaging/medications ordered to initiate pt care. Kiesha Hall NP 07/16/182110 Cosigned by Jeremías Jiménez MD at 07/17/2018 10:01 AM CDT documented in this encounter Plan of Treatment Not on file documented as of this encounter Procedures Procedure Name Priority Date/Time Associated Diagnosis Comments URINALYSIS STAT 07/16/2018 9:56 PM CDT URINE BACTERIA CULTURE Routine 9:56 PM CDT COMPREHENSIVE METABOLIC PANEL STAT 07/16/2018 9:31 PM CDT CBC W/DIFF AUTOMATED STAT 07/16/2018 9:[address] LUMB SPINE WO CON STAT 07/16/2018 9:25 PM CDT documented in this encounter Results * CULTURE URINE (07/16/2018 9:56 PM CDT) SPEC DESCRIPTION URINE CLEAN CATCH 07/17/2018 1:29 AM CDT [facility] SPECIAL REQUESTS NO SPECIAL REQUEST 07/17/2018 1:29 AM CDT [facility] CULTURE RESULT POLYMICROBIAL GROWTH CONSISTENT WITH NORMAL GENITAL YESENIA. ?? SUSCEPTIBILITIES NOT ROUTINELY PERFORMED. 07/19/2018 8:18 AM CDT [facility] URINE SPECIMEN OBTAINED BY CLEAN CATCH PROCEDURE / Unknown 07/16/2018 9:56 PM CDT 07/17/2018 1:28 AM CDT Kiesha Hall NP MICROBIOLOGY - GENERAL ORD ERABLES Final Result [facility] [address] [place] [address], * (ABNORMAL) URINALYSIS (07/16/2018 9:56 PM CDT) SPECIMEN TYPE URINE CLEAN CATCH 07/16/2018 9:55 PM CDT [facility] COLOR (U) YELLOW 07/16/2018 11:00 PM CDT [facility] TRANSPARENCY CLEAR 07/16/2018 11:00 PM CDT [facility] SPECIFIC GRAVITY (U) 1.019 1.001 - 1.030 07/16/2018 11:00 PM CDT [facility] U PH 5.0 5.0 - 9.0 07/16/2018 11:00 PM CDT [facility] LEUKOCYTES (U) MODERATE(A) NEGATIVE 9 11:00 PM CDT [facility] NITRITES NEGATIVE NEGATIVE 07/16/2018 11:00 PM CDT [facility] PROTEIN (U) NEGATIVE <30 MG/DL 07/16/2018 11:00 PM CDT [facility] URINE GLUCOSE NEGATIVE NEGATIVE MG/DL 07/16/2018 11:00 PM CDT [facility] KETONES MG/DL (U) NEGATIVE NEGATIVE MG/DL 07/16/2018 11:00 PM CDT [facility] UROBILINOGEN NEGATIVE NEGATIVE MG/DL 07/16/2018 11:00 PM CDT [facility] BILIRUBIN (U) NEGATIVE NEGATIVE MG/DL 07/16/2018 11:00 PM CDT [facility] BLOOD (U) MODERATE(A) NEGATIVE 07/16/2018 11:00 PM CDT [facility] CULTURE & SENSITIVITY INDICATED? SPECIMEN SETUP FOR CULTURE 07/16/2018 11:00 PM T [facility] SQUAMOUS EPITHELIALS MODERATE /LPF 07/16/2018 11:00 PM CDT [facility] MUCUS RARE /LPF 07/16/2018 11:00 PM T [facility] HYALINE CASTS RARE /LPF 07/16/2018 11:00 PM CDT [facility] WBC/HPF 14(H) <6 /HPF 07/16/2018 11:00 PM CDT [facility] RBC/HPF 1 <6 /HPF 07/16/2018 11:00 PM T [facility] URINE SPECIMEN OBTAINED BY CLEAN CATCH PROCEDURE / Unknown 07/16/2018 9:56 PM CDT us Kiesha Hall FOOD SAFETY COORDINATOR URINE ORDERABLES Final Res ult Performing Organization Address City/State/[facility] Co de Phone Number [facility] [address] [place] [address], * (ABNORMAL) COMPREHENSIVE METABOLIC PANEL (07/16/2018 9:31 PM CDT) [facility] Signature GLUCOSE 132(H) 70 - 99 MG/DL 07/16/2018 10:11 PM CDT [facility] BUN 24(H) 7 - 18 MG/DL 07/16/2018 10:11 PM CDT [facility] CREATININE S/P/B 0.94 0.55 - 1.02 MG/DL 07/16/2018 10:11 PM CDT [facility] SODIUM S/P/B 138 136 - 145 MMOL/L 07/16/2018 10:11 PM CDT [facility] POTASSIUM S/P/B 4.6 3.5 - 5.1 MMOL/L 07/16/2018 10:11 PM CDT [facility] CHLORIDE S/P/B 105 100 - 108 MMOL/L 07/16/2018 10:11 PM CDT [facility] CO2 28.7 21 - 32 MMOL/L 07/16/2018 10:11 PM CDT [facility] CALCIUM S/P/B 9.9 8.5 - 10.1 MG/DL 07/16/2018 10:11 PM CDT [facility] BILIRUBIN TOTAL S/P/B 0.4 0.2 - 1.2 MG/DL 07/16/2018 10:11 PM CDT [facility] TOTAL PROTEIN S/P/B 8.8(H) 6.4 - 8.2 G/DL 07/16/2018 10:11 PM CDT [facility] ALBUMIN S/P/B 3.4 3.4 - 5.0 G/DL 07/16/2018 10:11 PM CDT [facility] AST 18 15 - 37 U/L 07/16/2018 10:11 PM CDT [facility] ALT 27 14 - 55 U/L 07/16/2018 10:11 PM CDT [facility] ALKALINE PHOSPHATASE S/P/B 95 50 - 136 U/L 07/16/2018 10:11 PM CDT [facility] ANION GAP 8.9 8 - 20 MMOL/L 07/16/2018 10:11 PM CDT [facility] BUN CREATININE RATIO 25.7 6 - 26 07/16/2018 10:11 PM CDT [facility] A/G RATIO 0.6(L) 1.0 - 2.0 RATIO 07/16/2018 10:11 PM T [facility] EGFR NON-AFR. AMER. 65(L) >90 ML/MIN/1.7 3 M2 07/16/2018 10:11 PM CDT [facility] EGFR AFR. AMER. 75(L) >90 ML/MIN/1.7 3 M2 07/16/2018 10:11 PM CDT [facility] Comment: NOTE: eGFR is not calculated for patients <18 years of age. This is an estimated GFR (CKD EPI) and should not be used for calculating drug doses. 07/16/2018 9:31 PM CDT us Kiesha Hall NP LABORATORY Final Resu lt [facility] [address] [place] [address], [place] [phone] * (ABNORMAL) CBC W/DIFF AUTOMATED (07/16/2018 9:31 PM CDT) WBC 10.6 4.5 - 11.0 x10'3/uL 07/16/2018 9:51 PM CDT [facility] RBC 4.64 4.20 - 5.40 x10'6/uL 07/16/2018 9:51 PM CDT [facility] HGB 12.7 12.0 - 16.0 G/DL 07/16/2018 9:51 PM CDT [facility] HCT 41.5 38.0 - 48.0 % 07/16/2018 9:51 PM CDT [facility] MCV 89.4 80.0 - 94.0 FL 07/16/2018 9:51 PM CDT [facility] MCH 27.4 27.0 - 31.0 PG 07/16/2018 9:51 PM CDT [facility] MCHC 30.6(L) 32.0 - 36.0 G/DL 07/16/2018 9:51 PM CDT [facility] RDW 14.6(H) 11.5 - 14.5 % 07/16/2018 9:51 PM CDT [facility] PLT 317 130 - 400 x10'3/uL 07/16/2018 9:51 PM CDT [facility] MPV 9.5 9.3 - 12.2 FL 07/16/2018 9:51 PM CDT [facility] DIFFERENTIAL TYPE AUTOMATED DIFFERENTIAL 07/16/2018 9:51 PM CDT [facility] NEUTROPHILS % 62.2 % 07/16/2018 9:51 PM CDT [facility] LYMPHOCYTES % 26.1 % 07/16/2018 9:51 PM CDT [facility] MONOCYTES % 8.1 % 07/16/2018 9:51 PM CDT [facility] EOSINOPHILS 3.0 % 07/16/2018 9:51 PM CDT [facility] BASOPHILS 0.3 % 07/16/2018 9:51 PM CDT [facility] IMMATURE GRANS % 0.3(H) 0 % 07/17/19 19 9:51 PM CDT [facility] ABS. NEUTROPHILS TOTAL 6.60 1.80 - 7.70 x10'3/uL 07/16/2018 9:51 PM CDT [facility] ABS. LYMPHOCYTES 2.77 1.00 - 4.80 x10'3/uL 07/16/2018 9:51 PM CDT [facility] ABS. MONOCYTES 0.86 0.24 - 0.86 x10'3/uL 07/16/2018 9:51 PM CDT [facility] ABS. EOSINOPHILS 0.32 0.04 - 0.36 x10'3/uL 07/16/2018 9:51 PM CDT [facility] ABS. BASOPHILS 0.03 0.01 - 0.08 x10'3/uL 07/16/2018 9:51 PM CDT [facility] ABS. IMMATURE GRANULOCYTES 0.03 0.00 - 0.03 x10'3/uL 07/16/2018 9:51 PM CDT [facility] 07/16/2018 9:31 PM CDT Kiesha Hall NP LABORATORY Final Resu lt [facility] [address] [place] [address], [place] [phone] * CT LUMB SPINE WO CON (07/16/2018 9:25 PM CDT) Anatomical Region Laterality Modality Spine Computed Tomogra phy 07/16/2018 9:33 PM CDT Narrative 07/16/2018 9:36 PM CDT EXAMINATION: CT OF THE LUMBAR SPINE WITHOUT CONTRAST COMPARISON: None Available. EXAM HISTORY: Worsening chronic lower back pain with lower extremity weakness. TECHNIQUE: 3 mm axial images were obtained through the lumbar spine without contrast and with coronal and sagittal reconstructions. FINDINGS: Multilevel lumbar spondylosis. Hypertrophic changes of the facet joints, bilaterally. A component of right L4-L5 neural foraminal narrowing. Vertebral body height and alignment is otherwise preserved. No compression fracture or significant malalignment. Visualized pedicles and transverse processes otherwise are preserved. ??Sclerosis of the bilateral sacroiliac joints. IMPRESSION: Multilevel lumbar spondylosis. Right L4-L5 neural foraminal narrowing. No acute fracture or malalignment. Bilateral sacroiliitis. A radiation dose lowering technique was used for this procedure, which may include, but is not limited to, dose reduction technique, automated exposure control, the use of iterative reconstruction, ALARA (As Low As Reasonably Achievable) techniques, and Image Gently techniques. Interpreted By: Tina Ariza MD, 07/16/2018 9:33 PM Procedure Note Prince Ariza MD - 07/16/2018 EXAMINATION: CT OF THE LUMBAR SPINE WITHOUT CONTRAST COMPARISON: None Available. EXAM HISTORY: Worsening chronic lower back pain with lower extremity weakness. TECHNIQUE: 3 mm axial images were obtained through the lumbar spine without contrastand with coronal and sagittal reconstructions. FINDINGS: Multilevel lumbar spondylosis. Hypertrophic changes of the facet joints, bilaterally. A component of right L4-L5 neural foraminal narrowing. Vertebral body height and alignment is otherwise preserved. No compression fracture or significant malalignment. Visualized pedicles and transverse processes otherwise are preserved.Sclerosis of the bilateral sacroiliac joints. IMPRESSION: Multilevel lumbar spondylosis. Right L4-L5 neural foraminal narrowing. No acute fracture or malalignment. Bilateral sacroiliitis. A radiation dose lowering technique was used for this procedure, which mayinclude, but is not limited to, dose reduction technique, automatedexposure control, the use of iterative reconstruction, ALARA (As Low AsReasonably Achievable) techniques, and Image Gently techniques. Interpreted By: Tina Ariza MD, 07/16/2018 9:33 PM Kiesha Leonard Isabel FOOD SAFETY COORDINATOR CT Final Resu lt documented in this encounter Visit Diagnoses Diagnosis Acute UTI- Primary Urinary tract infection, site not specified Radicular pain of lumbosacral region Thoracic or lumbosacral neuritis or radiculitis, unspecified documented in this encounter Administered Medications Inactive Administered Medications - up to 3 most recent administrations Medication Order MAR Action Action Date Dose Rate Site diazepam (VALIUM) tablet 5 mg 5 mg, Oral, Once, 1 dose, On 07/17/18 at 0000 Given 07/16/2018 11:58 PM CDT 5 mg ketorolac (TORADOL) injection 30 mg 30 mg, Intramuscular, Once, 1 dose, On 07/17/18 at 0000, For IV administration, give over 15 seconds. Given 07/16/2018 11:58 PM CDT 30 mg Right Ventrogluteal sulfamethoxazole-trime thoprim (BACTRIM DS,SEPTRA DS) 800-160 MG tablet 1 tablet 1 tablet, Oral, Once, 1 dose, On 07/17/18 at 0000 Given 07/16/2018 11:58 PM CDT 1 tablet documented in this encounter Active and Recently Administered Medications Times are shown in CDT. Scheduled Medication Order 07/15/2018 07/16/2018 07/17/2018 diazepam (VALIUM) tablet 5 mg (COMPLETED) 5 mg, Oral, Once, 1 dose, On 07/17/18 at 0000 2358 (Given - Provider: Donnell Perez RN) ketorolac (TORADOL) injection 30 mg (COMPLETED) 30 mg, Intramuscular, Once, 1 dose, On 07/17/18 at 0000, For IV administration, give over 15 seconds. 2358 (Given - Provider: Donnell Perez RN) sulfamethoxazole-trimethoprim (BACTRIM DS,SEPTRA DS) 800-160 MG tablet 1 tablet (COMPLETED) 1 tablet, Oral, Once, 1 dose, On 07/17/18 at 0000 2358 (Given - Provider: Donnell Perez RN) documented in this encounter Additional Health Concerns Infection Onset Date Last Indicated Resolved Time MRSA Comment:mrsa nares pos. 02/201802/03/2017 02/03/2017 09/01/19 19 8:40 AM CDT documented as of this encounter Care Teams Aerospace Quality Engineer Relationship Specialty Start Date End Date Justen Gale MD [facility] [address] [place] [address] PCP - General FAMILY PRACTICE 08/20/17 Meena Bansal MD [facility]. [facility] [address] [place] [address] José Luis Linoleum Mechanic CARDIOVASCULAR DISEASE 04/24/16 documented as of this encounter
--- OUTSIDE RECORDS SUMMARY | 2024-04-26 02:53 | XMS_ITS | Encounter Summary ---
Author Organization [facility] Address [address] [place] [address] Phone Care Team Providers Care Histology Supervisor Name Role Phone Justen Gale MD Primary Care Provider [phone] David Roberts APRN, PROOF COIN COLLECTOR Unavailable [phone] Annel Rod MD Unavailable Reason for Visit * Reason Onset Date Comments Results 11/09/2023 Encounter Details Date Type Department Care Team (Late st Contact Info) Description 11/09/2023 Telephone [facility] [address] [place] [address] Justen Gale MD #[address] [address] Results Social History Tobacco Use Types Packs/Day Years Used Date Smoking Tobacco: Never Smokeless Tobacco: Never Alcohol Use Standard Drinks/Week Comments No 0 (1 standard drink = 0.6 oz pur e alcohol) PHQ-2 Answer Date Recorded Total Score - Questions 1-9 8 12/24 Education Answer Date Recorded What is the highest level of school you have completed or the highest degree you have received? Associate degree: occupational, technical, or vocational program 05/01/2022 Sexually Active Control Partners Comments Never Comments No Sex and Gender Information Value Date Recorded Sex Assigned at Not on file Legal Sex Female 12:43 PM CDT Gender Identity Not on file Sexual Orientation Not on file documented as of this encounter Miscellaneous Notes * Addendum Note - Kodak Elkins APRN, CNP - 11/14/2023 4:37 PM CDTAddended by: KODAK ELKINS on: 11/14/2023 04:37 PM Modules accepted: Orders * Telephone Encounter - Marlys Anderson RN - 11/14/2023 9:59 AM CDT I do not see an active order for the HONEY. The one from last year has . * Telephone Encounter - Kodak Elkins APRN, CNP - 11/13/2023 9:35 AM CDT Is the HONEY order still active from April? If so please contact patient. If not let me know. * Telephone Encounter - Stacy Huang RN - 11/10/2023 5:13 PM CDT LVM for patient to call back and sent a my chart message * Telephone Encounter - Kodak Elkins APRN, CNP - 11/10/2023 4:50 PM CDT I reviewed the celiac panel. There is a mild elevation in her IgA which can be seen in several types of inflammatory disorders. Does she have any family members with celiac disease? Has she had fattystools or chronic diarrhea. The note only mentioned nausea and vomiting. * Telephone Encounter - Kelli Segal RN - 11/10/2023 4:19 PM CDT Situation: Results Background: See below Assessment: Karly is calling to ask for the results from her celiac test She states she has been going back and forth from the emergency room to get pain medication as needed and if she does not have results from the testing, she will not know what to say when she goes tothe emergency room. She states symptoms have not changed at this time. Recommendation: Please advise and send Kinooshart message. * Telephone Encounter - Balbina Anderson RN - 11/10/2023 3:13 PM CDT S: follow up B: see previous note in encounter A: Patient is VERY upset that she has not received a call regarding her labs done on 11/07 as she has called multiple times to request follow up. RN advised that provider is out of the office today and caller states it needs to be read by covering provider and it better be today that she hears. R: please advise follow up on results of celiac testing from 11/07, thank you * Telephone Encounter - Lila Vicente RN - 11/10/2023 1:39 PM CDT Situation: results Background: Patient calling Assessment: Patient calling for results of celiac panel Recommendation: Please call when results are available. Encounter routed to provider to notify. * Telephone Encounter - Maura Don RN - 11/09/2023 9:50 PM CDT Patient calling for results of celiac panel. Please call when results are available. documented in this encounter Plan of Treatment Upcoming Encounters Date Type Department Care Team (Late st Contact Info) Description 05/17/2024 2:45 PM LEAD ASSEMBLER Office Visit [facility] - Endocrin[facility] [address] [place] [address] Annel Rod MD #[address] [address] Scheduled Orders Name Type Priority Associated Diagnoses Orde r Schedule HONEY SCREEN MULTIPLEX W/REFLEX MAGGIE Lab Routine Elevated immunoglobulin A Expected: 11/14/2023, Expires: 11/13/2024 documented as of this encounter Visit Diagnoses Diagnosis Elevated immunoglobulin A- Primary Other and unspecified nonspecific immunological findings documented in this encounter Additional Health Concerns Assessment Noted Time PHQ-9 Depression Total Score: 8 01/18/20 2:24 PM CDT documented as of this encounter Care Teams Histology Supervisor Relationship Specialty Start Date End Date Justen Gale MD #[address] [address] PCP - General Family Medicine 10/17/17 David Roberts, BLACKSMITH APPRENTICE, PROOF COIN COLLECTOR [address] [place] [address] Nurse Practitioner Advanced Practice Nurse 01/31/22 Annel Rod MD #[address] [address] Consulting Physician Endocrinology 07/01/22 documented as of this encounter
--- OUTSIDE RECORDS SUMMARY | 2024-04-26 02:53 | XMS_ITS | Encounter Summary ---
Author Organization [facility] Address [address] [place] [address] Phone Care Team Providers Care Engineering Faculty Name Role Phone Justen Gale MD Primary Care Provider [phone] David Roberts APRN, KILN PLACER Unavailable [phone] Annel Rod MD Unavailable Reason for Referral * Consult, Test & Initiate Treatment (Routine) - Closed Specialty Diagnoses / Procedures Referred By Elyssa benavides Referred To Contact Diagnoses Right hand pain Justen Gale MD #[address] [address] Phone: tel: fax: [facility] [address] [place] [address] Phone: tel: fax: Referral ID Status Reason Start Date Expiration Date Visits Re quested Visits Authorized [id number] Closed 03/26/2024 1 1 Scheduling Instructions Karly is being referred to [facility] in [facility] ph# [phone] , fax # [phone] or other specialist in patient's insurance network for evaluation of right wrist and forearm pain and lump. See below for Karly's current medications, allergies and problem list. CURRENT MEDS: Current Outpatient Medications: albuterol 108 (90 Base) MCG/ACT Aerosol Solution, take 2 Puffs by inhalation., Disp: , Rfl: B-D ULTRAFINE III SHORT PEN 31G X 8 MM Misc, USE 6 TIMES DAILY DIRECTED, Disp: 300 Pen Needle, Rfl: 1 Blood Glucose Monitoring Suppl Device, Diagnosis: Diabetes Type 2 Blood testing frequency: 4 times a day, Disp: 1 Each, Rfl: 0 Calcium Citrate-Vitamin D (CALCIUM + D PO), Take by mouth., Disp: , Rfl: Continuous Blood Gluc Sensor (FreeStyle Eileen 2 Sensor) Misc, APPLY 1 SENSOR AND WEAR FOR 14 DAYS TO CHECK BLOOD SUGAR, Disp: 6 Each, Rfl: 1 Continuous Blood Gluc Sensor (FreeStyle Eileen 2 Sensor) Misc, 1 Each by Does not apply route every 14 days. Change sensor every 14 days. E11.42, insulin dependent, Disp: 6 Each, Rfl: 1 Continuous Glucose Sensor (FreeStyle Eileen 2 Sensor) Misc, APPLY 1 SENSOR AND WEAR FOR 14 DAYS TO CHECK BLOOD SUGAR, Disp: 6 Each, Rfl: 1 diphenhydrAMINE (BENADRYL) 25 MG Capsule, Take 25 mg by mouth every 6 hours as needed., Disp: , Rfl: exemestane (AROMASIN) 25 MG Tablet, Take 25 mg by mouth daily., Disp: , Rfl: gabapentin (NEURONTIN) 300 MG Capsule, Take 300 mg by mouth., Disp: , Rfl: Glucose Blood (ONE TOUCH ULTRA TEST) Strip, Test four times daily., Disp: 400 Strip, Rfl: 3 HumaLOG KwikPen 100 UNIT/ML Solution Pen-injector, INJECT 28 UNITS UNDER SKIN BEFORE EACH MEAL.; ISF OF 1:15 OF IF>150MG/DL; MAX DAILY DOSE OF 100 UNITS, Disp: 90 mL, Rfl: 1 HumaLOG KwikPen 100 UNIT/ML Solution Pen-injector, ADMINSTER 22 UNITS UNDER THE SKIN BEFORE EACH MEAL, ISF OF 1:15 OF IF> 150MG/DL MAX DAILY DOSE OF 100 UNITS, Disp: 30 mL, Rfl: 1 HYDROcodone-acetaminophen (NORCO) 10-325 MG Tablet, Take 1 Tablet by mouth., Disp: , Rfl: HYDROcodone-acetaminophen (NORCO) 7.5-325 MG Tablet, , Disp: , Rfl: 0 insulin glargine (Lantus SoloStar) 100 UNIT/ML Solution Pen-injector, 40 Units by Subcutaneous route nightly., Disp: 15 mL, Rfl: 0 methenamine (HIPREX) 1 GM Tablet, Take 1 g by mouth 2 times daily. (Patient not taking: Reported on 03/26/2024), Disp: , Rfl: Misc. Devices Misc, Supply and instructions:, Disp: 1 Each, Rfl: 0 Multiple Vitamins-Minerals (WOMENS MULTI PO), Take by mouth., Disp: , Rfl: naloxone HCl (Narcan) 4 MG/0.1ML Liquid, as needed (Patient not taking: Reported on 01/30/2024), Disp: , Rfl: ondansetron (Zofran) 4 MG Tablet, Take 1 Tablet by mouth every 8 hours as needed for Nausea - 1st line. (Patient not taking: Reported on 03/26/2024), Disp: 15 Tablet, Rfl: 0 OneTouch Delica Lancets 33G Misc, 1 Lancet by Does not apply route 4 times daily., Disp: 400 Lancet, Rfl: 3 oxybutynin (DITROPAN XL) 15 MG TABLET SR 24 HR, Take 10 mg by mouth daily., Disp: , Rfl: rivaroxaban (XARELTO) 20 MG Tablet, Take 20 mg by mouth daily., Disp: , Rfl: rOPINIROLE (REQUIP) 5 MG Tablet, TAKE 1 TABLET BY MOUTH EVERY NIGHT (Patient taking differently: Take 5 mg by mouth nightly.), Disp: 90 Tablet, Rfl: 2 No current facility-administered medications for this visit. ALLERGIES: -- Ceftriaxone -- Anaphylaxis -- Cephalosporins -- Anaphylaxis -- Dermatological Products, Misc. -- Hives and Itching -- SURGICAL TAPE -- Lorazepam -- Other (see Comments) and Unknown -- Aggrevates restless leg syndrome Aggrevates restless leg syndrome -- Latex -- Rash -- Levofloxacin -- Rash and Other (see Comments) -- Macrobid [Nitrofurantoin] -- Itching -- Meropenem -- Rash -- Lisinopril -- Swelling -- Lower extremity edema -- Medical Adhesive Remover -- Rash -- Norvasc [Amlodipine Besylate] -- Swelling -- Leg swelling -- Oxycodone -- Unknown -- Reglan [Metoclopramide Hcl] -- Unknown -- Reslizumab -- Unknown -- Ketorolac -- Itching -- Pregabalin -- Other (see Comments) -- Sulfamethoxazole-Trimethoprim -- Itching -- Trazodone -- Other (see Comments) -- Shaky, restlessness, itching, throat swelling PROBLEM LIST: Patient Active Problem List: Physical exam, annual (Adult) High blood pressure Type 2 diabetes mellitus with diabetic polyneuropathy, with long-term current use of insulin (HCC) Acute deep vein thrombosis (DVT) of proximal vein of right lower extremity (HCC) Spinal stenosis of lumbar region without neurogenic claudication 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) Restless legs syndrome LLU (obstructive sleep apnea) Hyperthyroidism Dysuria Acute cystitis without hematuria Acute left-sided low back pain with left-sided sciatica Arthralgia of ankle 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 Cancer of overlapping sites of left female breast (HCC) Cellulitis of breast Chest pressure Chronic anticoagulation Constipation Diet-controlled diabetes mellitus (HCC) Dyspnea Generalized weakness History of DVT (deep vein thrombosis) History of pulmonary embolism Long-term current use of opiate analgesic Lumbosacral spondylosis without myelopathy Lymphedema of left upper extremity Morbid obesity with BMI of 50.0-59.9, adult (HCC) Nausea and vomiting Pulmonary embolism (HCC) Radiculopathy, lumbosacral region Syncope Neck pain on right side Speech impairment Neuropathy Class 3 severe obesity due to excess calories with serious comorbidity and body mass index (BMI) of 50.0 to 59.9 in adult (HCC) Thyroid nodule RT ANALYST Reason for Visit * Reason Onset Date Comments Advice Only 03/26/2024 Referral 03/26/2024 Wrist Pain 03/26/2024 Lump 03/26/2024 Encounter Details Date Type Department Care Team (Late st Contact Info) Description 03/26/2024 Nurse Triage [facility] [place] [facility] [address] [place] [phone] Justen Gale MD #[address] [address] Advice Only; Referral; Wrist Pain; Lump Social History Tobacco Use Types Packs/Day Years [...] encounter Miscellaneous Notes * Addendum Note - Justen Gale MD - 03/26/2024 4:55 PM CSTAddended by: JUSTEN GALE on: 03/26/2024 04:55 PM Modules accepted: Orders RT ANALYST * Addendum Note - Ruth Neville RN - 03/26/2024 4:55 PM CSTAddended by: RUTH NEVILLE on: 03/26/2024 04:55 PM Modules accepted: Orders RT ANALYST * Telephone Encounter - Ruht Neville RN - 03/26/2024 4:50 PM CST Situation: Patient is requesting a new referral to (speciality) ortho Background: Referral requested for right wrist/arm pain and cyst. (See note below for triage) Action: Name and location of patient's preferred specialty provider: [facility] in [facility] ph: [phone] fax: [phone] Patient been seen by this speciality in the past? No Recommendation: Referral request routed to provider for review. Patient requests alternate ortho provider due to being able get an earlier appointment. Discussed utilizing XIPWIRE to: discuss if they would prefer a XIPWIRE message or phone call response Patient requests both. Caller has been given the referral center information (M-F 8am-4:30pm [phone] option 7) to call to check status of referral once the order has been signed. Reason for Disposition ??? Weakness (i.e., loss of strength) of new-onset in hand or fingers ??? Swelling is painful to touch and no fever Protocols used: Wrist Pain-A-OH, Skin Lump or Localized Asizpzlw-B-QH RT ANALYST * Telephone Encounter - Ruth Neville RN - 03/26/2024 4:14 PM CST SITUATION: wrist pain / lump BACKGROUND: Caller contacting PCP office. Symptom Onset: worsening for the past month ASSESSMENT: Symptom Description / Location: Patient reports that she is having pain to her right wrist and 2 inches below that into her forearm. She mentions slight swelling to the wrist and the bottom of her thumb as well as a 1 x 2 raised lump at the site in her forearm that is very tender and painful to the touch. She believes that thereis a cyst pushing on something there. She mentions sometimes it is warm over the lump but denies redness or wound. She mentions symptoms are substantially impacting her daily activities. Patient reports she has previously been evaluated for this issue in the ED and Urgent Care and was informed that there is a cyst and some arthritis. Patient states that she does have a referral to an ortho provider but couldn't get in for months and is requesting a referral to an alternative ortho provider that can get her in this week. Will pendreferral. Pain: 6/10 moderate constant pain up the arm to her inner elbow, worsened with twisting and lifting Fever: Denies fever. Treatment / Response: hydrocodone 10mg with no relief. Heat with no relief and cold with mild relief and wrapping with worsening. LMP: Post-menopausal DENIES: Wrist injury Redness or streaks over the area Similar pain previously Chest pain Caused by an animal bite Caused by a human bite Wound or open area Hand pain is main symptom SEVERE pain Looks infected Looks like a boil, infected sore, deep ulcer or other infected rash Rash Small growth, spot, bump, or pigmented area of skin Inguinal hernia Followed a skin injury Followed an insect bit Swelling anywhere else in her body besides hand, wrist, arm Swelling of surgical incision Swelling of vaccination site Hernia suspected Swollen lump in groin and pulsating fever RECOMMENDATION: Caller agreeable to being seen, but is requesting to wait and be seen outside of disposition despite education provided. Care advice provided per triage guideline. Caller verbalized understanding. Due to office unavailability within disposition, advised for patient to be seen at prompt care or urgent care. Caller agreeable to prompt care/urgent care. Patient reports she will go to urgent care in the morning of 03/27/24. Medications, allergies, and preferred pharmacy verified. Encouraged caller to call back with questions, concerns, or worsening symptoms. Caller verbalized understanding. - See care advice and disposition for Guideline. First positive answer recorded, all responses to prior questions were negative. If symptoms increase, change or if new symptoms develop, call your health care provider or call back. Recommendations were based on caller information and is not a diagnosis. Verified and reviewed all triage information with caller. Reason for Disposition Weakness (i.e., loss of strength) of new-onset in hand or fingers Swelling is painful to touch and no fever Protocols used: Wrist Pain-A-OH, Skin Lump or Localized Gaxzflpa-C-NY RT ANALYST * Telephone Encounter - Sonali Edmonds - 03/26/2024 4:08 PM CST Symptom: Hand or Wrist Pain - Not From Injury Outcome: Transfer to patient coordinator queue Reason: Can't use the hand normally The caller accepted this outcome. Patient is calling because she was referred to [facility] but can't get her in until April and she is in so much pain she can't wait that long. She called around and found out she could get into [facility] in [facility] [phone] ph#, fax # [phone] end of this week or next but needs new referral Needing advice on what to do for pain until then and needing new referral placed. RT ANALYST documented in this encounter Plan of Treatment Upcoming Encounters Date Type Department Care Team (Late st Contact Info) Description 05/17/2024 2:45 PM REPORT ANALYST Office Visit [facility] - Endocrinology - [place] [address] [place] [address] Annel Rod MD #[address] [phone] Scheduled Referrals Name Type Priority Associated Diagnoses Order Schedule EXTERNAL ORTHOPEDIC REFERRAL Outpatient Referral Routine Right hand pain Expected: 03/26/2024, Expires: 03/26/2025 documented as of this encounter Visit Diagnoses Diagnosis Right hand pain- Primary Pain in limb documented in this encounter Additional Health Concerns Assessment Noted Time PHQ-9 Depression Total Score: 8 01/18/20 2:24 PM CDT documented as of this encounter Care Teams Engineering Faculty Relationship Specialty Start Date End Date Justen Gale MD #[address] [address] PCP - General Family Medicine 10/17/17 David Roberts APRN, KILN PLACER [address] [place] [address] Nurse Practitioner Advanced Practice Nurse 01/31/22 Annel Rod MD #[address] [address] Consulting Physician Endocrinology 07/01/22 documented as of this encounter
--- OUTSIDE RECORDS SUMMARY | 2024-04-26 02:53 | XMS_ITS | Encounter Summary ---
Author Organization [facility] Address [address] [place] [address] Phone Care Team Providers Care Director Drug Safety Name Role Phone Justen Gale MD Primary Care Provider David Roberts APRN, OBSTETRICS SPECIALIST Unavailable [phone] Annel Rod MD Unavailable Reason for Visit * Reason Onset Date Comments Wrist Pain 01/15/2024 Encounter Details Date Type Department Care Team (Late st Contact Info) Description 01/15/2024 [facility] [address] [place] [address] Justen Gale MD #[address] [address] Wrist Pain Social History Tobacco Use Types Packs/Day Years [...] encounter Miscellaneous Notes * Addendum Note - Siobhan Segal RN - 01/15/2024 11:16 AM CDTAddended by: SIOBHAN SEGAL on: 01/15/2024 11:16 AM Modules accepted: Orders * Telephone Encounter - Siobhan Segal RN - 01/15/2024 10:56 AM CDT SITUATION: Wrist pain BACKGROUND: Karly states she was seen at walk-in clinic yesterday and referred to orthopedics for wrist pain.Today the pain has changed and she is calling to see what she should do. ASSESSMENT: Symptom Description / Location: States had a hematoma on her hand that She is on a blood thinner The hand healed after a few weeks The right wrist has bothered her since then. It got a little bit better for a few weeks and she went to Urgent Care yesterday. There is a soft lump in the wrist. She can use the hand but it is painful. Today the pain is radiating up the arm more. It is not quite to the elbow but close to it. This radiation is new. The lump has not changed at all since seen yesterday at walk-in. Urgent Care told Karly yesterday that she should be referred to orthopedics. She is calling todaybecause the pain is changing. The pain is on the inside of the wrist radiating up to nearly the elbow. If she does not use the wrist, it is not as bad. 3-4/10 and if using it is 6/10. States light swelling in the wrist and arm and can feel the raised bump. Did not do x-ray The swelling is not worse since yesterday Fingers have been intermittently numb. Does have trouble gripping, thinks this is weakness. thinks it is more painful. Pain: 6/10 Fever: Denies fever. Treatment / Response: ice, wrap, takes prescription medication for back pain (included in pain medication) Pain medication does not do much, but the wrap seems to help the best RECOMMENDATION: Karly is agreeable to being seen in the office but there are no visits for at least 1 week from now. She declines walk-in clinic as she does not believe they will help her any further. Caller requesting Dr. Gale's recommendations -- should she be seen again and if so, can Dr. Gale ok the use ofa blocked appointment to see her before the next available open appointment?. Or should she just wait to see orthopedics? May send [employer]ero Networkshart in response. Thank you! Care advice provided per triage guideline. Caller verbalized understanding. Discussed utilizing PeerMe to: discuss if they would prefer a PeerMe message or phone call response - See care advice and disposition for [...] of strength) of new-onset in hand or finger (Exception: Not truly weak, hand feels weak because of pain.) Protocols used: Hand and Wrist Pain-A-OH * Telephone Encounter - Hannah Fererll - 01/15/2024 10:47 AM CDT Symptoms: Hand or Wrist Pain - Not From Injury, Arm Pain - Not From Injury Outcome: Transfer to tobacco stripper hand queue Reason: Can't use the hand normally The caller accepted this outcome. documented in this encounter Plan of Treatment Upcoming Encounters Date Type Department Care Team (Late st Contact Info) Description 05/17/2024 2:45 PM BATTERY CHARGER CONVEYOR LINE Office Visit [facility] - Endocrinology - [place] [address] [place] [address] Annel Rod MD [address] [address] [address] documented as of this encounter Visit Diagnoses Not on filedocumented in this encounter Additional Health Concerns Assessment Noted Time PHQ-9 Depression Total Score: 8 01/18/20 23 2:24 PM CDT documented as of this encounter Care Teams Director Drug Safety Relationship Specialty Start Date End Date Justen Gale MD #[address] [place] [address] [address] PCP - General Family Medicine 10/17/17 David Roberts, CIGAR MACHINE FEEDER, OBSTETRICS SPECIALIST [address] [place] [address] Nurse Practitioner Advanced Practice Nurse 01/31/22 Annel Rod MD #[address] [address] [address] Consulting Physician Endocrinology 07/01/22 documented as of this encounter
--- OUTSIDE RECORDS SUMMARY | 2024-04-26 02:53 | XMS_ITS | Clinical Summary ---
Author Organization [facility] Address [address] [place] [address] Phone Care Team Providers Care Control Systems Designer Name Role Phone Justen Gale MD Primary Care Provider [phone] David Roberts APRN, PAYROLL OFFICER Unavailable [phone] Annel Rod MD Unavailable Allergies Active Allergy Reactions Criticality Noted Date Comments Ceftriaxone Anaphylaxis High 09/14/2017 Cephalosporins Anaphylaxis High 03/22/2017 Dermatological Products, Misc. Hives,Itching High 10/12/2021 SURGICAL TAPE Ketorolac Itching Low 07/05/2021 Latex Rash Medium 07/05/2021 Levofloxacin Rash,Other (see Comments) Medium 04/20/2017 Lisinopril Swelling 04/19/2021 Lower extremity edema Lorazepam Other (see Comments),Unknown High 03/18/2018 Aggrevates restless leg syndrome Aggrevates restless leg syndrome Nitrofurantoin Itching Medium 10/12/2021 Medical Adhesive Remover Rash 09/16/2021 Meropenem Rash Medium 02/16/2022 Amlodipine Besylate Swelling 07/05/2022 Leg swelling Oxycodone Unknown 10/17/2017 Pregabalin Other (see Comments) Low 10/29/2020 Metoclopramide Hcl Unknown 10/17/2017 Reslizumab Unknown 10/29/2020 Sulfamethoxazole-Trimeth oprim Itching Low 02/27/2022 Trazodone Other (see Comments) Low 11/03/2017 Shaky, restlessness, itching, throat swelling Medications rivaroxaban (XARELTO) 20 MG Tablet Take 20 mg by mouth daily. Active exemestane (AROMASIN) 25 MG Tablet Take 25 mg by mouth daily. Active Blood Glucose Monitoring Suppl DeviceIndicati ons:Type 2 diabetes mellitus with complication, without long-term current use of insulin ([facility]) Diagnosis: Diabetes Type 2 Blood testing frequency: 4 times a day 1 Each 8 Active HYDROcodone-ac etaminophen (NORCO) 7.5-325 MG Tablet 0 9 Active Glucose Blood (ONE TOUCH ULTRA TEST) Strip Test four times daily. 400 Strip 3 0 Active Misc. Devices MiscIndication s:LUL (obstructive sleep apnea) Supply and instructions: 1 Each 1 Active OneTouch Delica Lancets 33G Misc 1 Lancet by Does not apply route 4 times daily. 400 Lancet 3 1 Active naloxone HCl (Narcan) 4 MG/0.1ML Liquid as needed 2 Active diphenhydrAMIN E (BENADRYL) 25 MG Capsule Take 25 mg by mouth every 6 hours as needed. Active B-D ULTRAFINE III SHORT PEN 31G X 8 MM Misc USE 6 TIMES DAILY DIRECTED 300 Pen Needle 1 3 Active methenamine (HIPREX) 1 GM Tablet Take 1 g by mouth 2 times daily. Active oxybutynin (DITROPAN XL) 15 MG TABLET SR 24 HR Take 10 mg by mouth daily. 3 Active HumaLOG KwikPen 100 UNIT/ML Solution Pen-injector ADMINSTER 22 UNITS UNDER THE SKIN BEFORE EACH MEAL, ISF OF 1:15 OF IF> 150MG/DL MAX DAILY DOSE OF 100 UNITS 30 mL 1 3 Active HumaLOG KwikPen 100 UNIT/ML Solution Pen-injector INJECT 28 UNITS UNDER SKIN BEFORE EACH MEAL.; ISF OF 1:15 OF IF>150MG/DL; MAX DAILY DOSE OF 100 UNITS 90 mL 1 4 Active Continuous Blood Gluc Sensor (FreeStyle Eileen 2 Sensor) [facility] [place] 1 SENSOR AND WEAR FOR 14 DAYS TO CHECK BLOOD SUGAR 6 Each 1 4 Active albuterol 108 (90 Base) MCG/ACT Aerosol Solution take 2 Puffs by inhalation. 1 Active gabapentin (NEURONTIN) 300 MG Capsule Take 300 mg by mouth. 4 Active Continuous Glucose Sensor (FreeStyle Eileen 2 Sensor) [facility] [place] 1 SENSOR AND WEAR FOR 14 DAYS TO CHECK BLOOD SUGAR 6 Each 1 4 Active HYDROcodone-ac etaminophen (NORCO) 10-325 MG Tablet Take 1 Tablet by mouth. 4 Active insulin glargine (Lantus SoloStar) 100 UNIT/ML Solution Pen-injector 40 Units by Subcutaneous route nightly. 15 mL 4 Active Multiple Vitamins-Conejos als (WOMENS MULTI PO) Take by mouth. Activ e Calcium Citrate-Vitami n D (CALCIUM + D PO) Take by mouth. Activ e rOPINIROLE (REQUIP) 5 MG Tablet Take 1 Tablet by mouth nightly. 90 Tablet 2 5 Active ondansetron (Zofran) 4 MG Tablet Take 1 Tablet by mouth every 8 hours as needed for Nausea - 1st line. 15 Tablet 5 Active Continuous Glucose Sensor (FreeStyle Eileen 2 Sensor) [facility] [place] 1 Each by Does not apply route every 14 days. Change sensor every 14 days. E11.42, insulin dependent 6 Each 1 5 Active Continuous Blood Gluc Sensor (FreeStyle Eileen 2 Sensor) [facility] [place] 1 Each by Does not apply route every 14 days. Change sensor every 14 days. E11.42, insulin dependent 6 Each 1 3 024 Discontin ued(Reord er) rOPINIROLE (REQUIP) 5 MG Tablet TAKE 1 TABLET BY MOUTH EVERY NIGHT 90 Tablet 2 4 024 Discontin ued(Reord er) ondansetron (Zofran) 4 MG Tablet Take 1 Tablet by mouth every 8 hours as needed for Nausea - 1st line. 15 Tablet 4 024 Discontin ued(Reord er) Active Problems Problem Noted Date Diagnosed Date Class 3 severe obesity due t o excess calories with serious comorbidity and body mass index (BMI) of 50.0 to 59.9 in adult 11/15/2018 Thyroid nodule 11/15/2018 Neuropathy 02/27/2018 Speech impairment 01/30/2018 Neck pain on right side 12/01/2017 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 018 Chronic anticoagulation 11/09/2017 Constipation 11/09/2017 Acute left-sided low back pain with left-sided s ciatica 10/23/2017 Overview (11/09/2017): Last Assessment & Plan: Likely disc herniation. NSGY to see patient tomorrow. Ordered MRI per NSGY recs. continue with home norco. 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 10/17/2017 Restless legs syndrome 10/17/2017 Overview (11/09/2017): Overview: Restless leg syndrome LUL (obstructive sleep apnea) 10/17/2017 Hyperthyroidism 10/17/2017 Dysuria 10/17/2017 Cancer of overlapping sites of left female breas t 10/13/2017 Syncope 09/29/2017 History of DVT (deep vein thrombosis) 08/22/2017 Morbid obesity with BMI of 50.0-59.9, adult 04/2017 Chest pressure 08/01/2017 Diet-controlled diabetes mellitus 08/01/2017 History of pulmonary embolism 08/01/2017 Acute cystitis without hematuria 07/27/2017 Dyspnea 07/27/2017 Generalized weakness 07/27/2017 Nausea and vomiting 07/26/2017 Overview (11/09/2017): Overview: Added automatically from request for surgery [id number] Lymphedema of left upper extremity 08/09/2016 Pulmonary embolism 08/09/2016 Overview (11/09/2017): Last Assessment & Plan: On Rivaroxaban Arthralgia of ankle 01/26/2015 Cellulitis of breast 11/11/2014 Encounters Date Type Department Care Team Description 04/23/2024 MyChart RX Renewal [facility] [address] [place] [address] Annel Rod MD Medication Renewal Declined 04/23/2024 MyChart RX Renewal [facility] [address] [place] [address] Justen Gale MD Medication Renewal Request 03/26/2024 Nurse Triage [facility] [address] [place] [address] Justen Gale MD Advice Only; Referral; Wrist Pain; Lump 03/18/2024 Nurse Triage [facility] [address] [place] [phone] Justen Gale MD Palpitations 02/21/2024 Refill [facility] [address] [place] [address] Annel Rod MD Medication Refill 01/28/2024 Nurse Triage [facility] [address] [place] [address] Justen Gale MD Fall; ED Follow-up from Last 3 Months Immunizations Immunization Administration Dates Next Due Covid-19 Vaccine, Vector-nr, Rs-ad26, Pf, 0.5 Ml ([employer]) 06/29/2020 Influenza Vaccine greater than 3 yrs 03/2020,02/14/2017,01/23/2016,2014,03/07/2014,05/07/2013 Influenza Vaccine, Quadrivalent, PF 12/23,05/04/2021,01/18/2020,2018,01/24/2018,02/14/2017 Influenza Vaccine,unspecifie d Formulation 01/17/2023 Influenza, Injectable, Quadrivalent 02/06/2017,1 Influenza, Quadrivalent, Adjuvanted 01/17/2023 Influenza, Seasonal, Injecta ble, Undefined 02/03/2020,01/23/2016,03/07/2014,2013 TDAP Vaccine 02/23/2016 Family History Medical History Relation Name Comments Cancer Father Stroke Mother Relation Name Status Comments Father Mother Social History Tobacco Use Types Packs/Day Years Used Date Smoking Tobacco: Never Smokeless Tobacco: Never Tobacco Cessation:Counseling Given: No [...] Sign Reading Time Taken Comments Blood Pressure 138/98 01/17/2024 1:47 PM CDT Pulse 77 01/17/2024 1:47 PM CDT Temperature 36 ??C (96.8 ??F) 01/17/2024 1:47 PM CDT Respiratory Rate 18 01/17/2024 1:47 PM CDT Oxygen Saturation 98% 01/17/2024 1:47 PM CDT Inhaled Oxygen Concentration - - Weight 120.7 kg (266 lb) 01/17/2024 1:47 PM CDT Height 154.9 cm (5' 1 ) 01/17/2024 1:47 PM CDT Body Mass Index 50.26 01/17/2024 1:47 PM CDT Plan of Treatment Upcoming Encounters Date Type Department Care Team (Late st Contact Info) Description 05/17/2024 2:45 PM SENIOR PUBLICATIONS SPECIALIST Office Visit [facility] - Endocrinology - [place] [address] [place] [phone] Annel Rod MD [address] [address] Health Maintenance Due Date Last Done Comments Diabetes: Eye Exam 1955 Pneumococcal Immunization (50+ years) (1 of 2 - PCV) 1975 Zoster Immunization (1 of 2) 1975 Cologuard 2006 Respiratory Syncytial Virus (RSV) Immunization (Adult) (1 - Risk 60-74 years 1-dose series) 2016 Immunochemical Fecal Occult Blood 09/08/2019 09/07/2018, 08/31/2018 Diabetes: Foot Exam 08/12/2020 08/13/2019, 08/07/2019, 06/18/2019, Additional history exists Influenza Immunization (#1) 12/24/202312/24, 01/17/2023, 01/03/2022, Additional history exists SARS-COV-2 Immunization ( season) 2023 05/04/2021, 06/29/2020 Diabetes: Hemoglobin A1c 04/14/2024 024, 10/02/2023, 08/14/2023, Additional history exists DEXA Bone Density 08/02/2024 08/02/2022, 11/10/2020 Diabetes: Nephropathy Screening 12/03/2024 12/04/2023, 10/03/2023, 09/11/2023, Additional history exists Colonoscopy 01/08/2025 01/09/2020, 08/23, 09/09/2018 Colorectal Cancer Screening 01/08/2025 Td Immunization Every 10 Years (Adults With 1 Tdap) 02/22/2026 02/23/2016 01/09/2020, 08/23, 09/09/2018 Mammogram Unilateral Discontinued 09/10/2014 Cervical Cancer Screening (CCS) Discontinued HPV/Cotest Discontinued 07/05/2022 Pap Smear Discontinued 07/05/2022 Hepatitis C Virus (HCV) Screening Completed 02/21/2023 Hepatitis B Immunization Aged Out No longer eligible based on patient's age to complete this topic Meningococcal Immunization (ACWY) Aged Out No longer eligible based on patient's age to complete this topic Rotavirus Immunization Aged Out No lo nger eligible based on patient's age to complete this topic Procedures Procedure Name Priority Date/Time Associated Diagnosis Comments CT - ABDOMEN/PELVIS 04/19/2024 1 2:00 AM SENIOR PUBLICATIONS SPECIALIST PAIN CONSULT 03/25/2024 12:00 AM SENIOR PUBLICATIONS SPECIALIST CTA GENERIC 03/18/2024 12:00 AM SENIOR PUBLICATIONS SPECIALIST US - LOWER EXTREMITY 03/18/2024 12:00 AM SENIOR PUBLICATIONS SPECIALIST PAIN CONSULT 03/05/2024 12:00 AM SENIOR PUBLICATIONS SPECIALIST PAIN CONSULT 02/28/2024 12:00 AM SENIOR PUBLICATIONS SPECIALIST PAIN CONSULT 02/13/2024 12:[address] - UPPER EXTREMITY 02/06/2024 12:00 AM CDT XR - UPPER EXTREMITY 01/28/2024 12:[address] - SPINE 01/28/2024 12:00 AM CDT CMP (COMPREHENSIVE METABOLIC PANEL) 12/04/2023 12:00 AM CDT HEMOGLOBIN, A1C 10/02/2023 12:00 AM CDT HUMAN PAPILLOMA VIRUS (HPV) Routine 07/05/2022 2:24 PM CDT Encounter for gynecological examination with abnormal finding Encounter for screening for human papillomavirus (HPV) PATHOLOGY CYTOLOGY CROP GRAIN OR LIVESTOCK FARM MANAGER Routine 07/05/2022 2:24 PM CDT Encounter for gynecological examination with abnormal finding HM COLONOSCOPY Routine 01/09/2020 AMB REFERRAL TO PODIATRY Routine 08/13/2019 POCT STOOL, OCCULT BLOOD, DIAGNOSTIC Routine 09/07/2018 1:20 PM CDT Generalized abdominal pain from Last 3 Months or Most Recently Relevant to Health Maintenance Results * CT - ABDOMEN/PELVIS (04/19/2024 12:00 AM SENIOR PUBLICATIONS SPECIALIST) 04/19/2024 us Provider Scan IMG CT ORDERABLES Final Result SCAN * PAIN CONSULT (03/25/2024 12:00 AM SENIOR PUBLICATIONS SPECIALIST) Only the most recent of4 resultswithin the time period is included. 03/25/2024 Justen Gale MD GENERIC SCAN ORDERS CONSULT F inal Result Performing Organization Address City/[facility]/ZIP Co de Phone Number SCAN * US - LOWER EXTREMITY (03/18/2024 12:00 AM SENIOR PUBLICATIONS SPECIALIST) 03/18/2024 us Provider Scan IMG US ORDERABLES Final Result Performing Organization Address City/[facility]/[place] de Phone Number SCAN * CTA MISCELLANEOUS (03/18/2024 12:00 AM SENIOR PUBLICATIONS SPECIALIST) 03/18/2024 us Provider Scan IMG CT ORDERABLES Final Result Performing Organization Address City/[facility]/ZIP Co de Phone Number SCAN * CT - UPPER EXTREMITY (02/06/2024 12:00 AM CDT) 02/06/2024 us Provider Scan IMG CT ORDERABLES Final Result Performing Organization Address City/[facility]/ZIP Co de Phone Number SCAN * XR - UPPER EXTREMITY (01/28/2024 12:00 AM CDT) 01/28/2024 us Provider Scan IMG DIAGNOSTIC ORDERABLES Final Result SCAN * CT - SPINE (01/28/2024 12:00 AM CDT) 01/28/2024 us Provider Scan IMG CT ORDERABLES Final Result Performing Organization Address City/[facility]/ZIP Co de Phone Number SCAN * CMP (COMPREHENSIVE METABOLIC PANEL) (12/04/2023 12:00 AM CDT) 12/04/2023 us Provider Scan CHEMISTRY ORDERABLES Final Resul t Performing Organization Address City/[facility]/ZIP Co de Phone Number SCAN * HEMOGLOBIN, A1C (10/02/2023 12:00 AM CDT) HGB-A1C 7.8 SCAN 10/02/2023 us Provider Scan CHEMISTRY ORDERABLES Final Resul t Performing Organization Address [facility] Co de Phone Number SCAN * PATHOLOGY CYTOLOGY CROP GRAIN OR LIVESTOCK FARM MANAGER (07/05/2022 2:24 PM CDT) SPECIMEN ADEQUACY A scant cellular component is noted. Scant cellularity is likely due to presence of lubricant. 07/08/2022 8:38 AM CDT [facility] DESCRIPTIVE DIAGNOSIS NEGATIVE FOR INTRAEPITHELIAL LESIONS OR MALIGNANCY. 07/08/2022 8:38 AM CDT [facility] R FINDINGS Atrophic hormonal pattern. 07/08/2022 8:38 AM CDT [facility] Automated Examination This sample was not evaluated by the automated imaging and review system ([employer] System, [employer], [place], [place] due to technical and / or biologic factor(s). The case was screened, reviewed, and finalized by a grinding and spraying supervisor and / or pathologist. 07/08/2022 8:38 AM CDT [facility] Disclaimer The PAP smear is a screening test designed to detect cancerous or precancerous cells of the uterine cervix. It is one of the best means available for detection of cervical cancer but still carries an inherent false-negative rate. The consequences of a false-negative PAP result can be minimized by adhering to current screening guidelines. The following are general guidelines recommended by the ACS, ASCP, ASCCP, and ACOG: PAP testing is recommended every three years for women 21-29, Co-Testing , a PAP test in conjunction with an HPV (Human Papillomavirus) test for women ages 30-65, and no PAP or HPV testing for women under the age of 21 or older than 65 unless clinically indicated. 07/08/2022 8:38 AM CDT [facility] Other (Cervix/Endocerv ix) Non-Phlebotomy Collection / Unknown 07/05/2022 2:24 PM CDT 07/05/2022 2:24 PM CDT us Pili Elkins FIRE LIEUTENANT, PAYROLL OFFICER PATHOLOGY/CYTOLOGY O RDERABLES Final Result [facility] [address] [place] [address], * HUMAN PAPILLOMA VIRUS (HPV) (07/05/2022 2:24 PM CDT) HPV OTHER HIGH RISK TYPES, PCR NEGATIVE NEGATIVE 07/06/2022 2:37 PM CDT [facility] Comment: The following Other High Risk types were not detected: 31, 33, 35, 39, 45, 51, 52, 56, 58, 59, 66, and 68. A negative high-risk HPV result does not exclude the possibility of future cytologic HSIL or underlying CIN2-3 or cancer. The presence of PCR inhibitors may cause false negative or invalid results. If concentrations of whole blood in the sample exceed 1.5% (dark red or brown coloration) in PreservCyt solution, there is a likelihood of obtaining a false-negative result. HPV TYPE 16 NEGATIVE NEGATIVE 07/06/2022 2:37 PM CDT [facility] Comment: A negative high-risk HPV result does not exclude the possibility of future cytologic HSIL or underlying CIN2-3 or cancer. The presence of PCR inhibitors may cause false negative or invalid results. If concentrations of whole blood in the sample exceed 1.5% (dark red or brown coloration) in PreservCyt solution, there is a likelihood of obtaining a false-negative result. HPV TYPE 18 NEGATIVE NEGATIVE 07/06/2022 2:37 PM CDT [facility] Comment: A negative high-risk HPV result does not exclude the possibility of future cytologic HSIL or underlying CIN2-3 or cancer. The presence of PCR inhibitors may cause false negative or invalid results. If concentrations of whole blood in the sample exceed 1.5% (dark red or brown coloration) in PreservCyt solution, there is a likelihood of obtaining a false-negative result. HPV ORDER BE USED FOR SCREENING OR DIAGNOSTIC SCREENING 07/06/2022 2:37 PM CDT [facility] Other Non-Phlebotomy Collection / Unknown 07/05/2022 2:24 PM CDT 07/05/2022 2:24 PM CDT Narrative [facility] - 07/06/2022 2:37 PM CDT Performed by Real-Time Polymerase Chain Reaction (PCR) on the Ronnie Vinay 4800. This assay has been validated for use with post-aliquot samples from the [employer] T5000 processor. Pili Elkins APRN, CNP LAB SEND OUTS Deann l Result [facility] [address] [place] [address], [facility] [address] [place] [address] * HM COLONOSCOPY (01/09/2020) Genaro Jensen DO PROCEDURE/MINOR SURGICAL ORDERA BLES Final Result * AMB REFERRAL TO PODIATRY (08/13/2019) Alvarez Mensah MD OUTPATIENT REFERRALS Final Res ult * POCT STOOL, OCCULT BLOOD, DIAGNOSTIC (09/07/2018 1:20 PM CDT) OCCULT BLOOD, STOOL Negative Negative, Other POC HEMOCULT CONTROL [employer] T[employer] Pass 09/07/2018 1:20 PM CDT Pili Elkins APRN, CNP POINT OF CARE TESTIN G (MANUAL) Final Result from Last 3 Months or Most Recently Relevant to Health Maintenance Insurance MEDICARE C [facility] Care Teams Control Systems Designer Relationship Specialty Start Date End Date Justen Gale MD [address] [facility] [address] [place] [address] PCP - General Family Medicine 10/17/17 David Roberts APRN, PAYROLL OFFICER [address] [place] [address] Nurse Practitioner Advanced Practice Nurse 01/31/22 Annel Rod MD [address] [facility] [address] [place] [address] Consulting Physician Endocrinology 07/01/22
--- OUTSIDE RECORDS SUMMARY | 2024-04-26 02:53 | XMS_ITS | Encounter Summary ---
Author Organization [facility] Address [address] [place] [address] Phone Care Team Providers Care Public Policy Coordinator Name Role Phone Justen Gale MD Primary Care Provider [phone] David Roberts APRN, DATA RECOVERY PLANNER Unavailable [phone] Annel Rod MD Unavailable Reason for Referral * Radiology Services (Routine) - Closed Specialty Diagnoses / Procedures Referred By Elyssa benavides Referred To Contact Radiology Diagnoses Thyroid nodule Procedures US GUIDANCE AND THYROID BIOPSY Annel Rod MD #[address] [address] Phone: tel: fax: Referral ID Status Reason Start Date Expiration Date Visits Re quested Visits Authorized [id number] Closed 09/13/2023 1 1 Reason for Visit * Auth/Cert (Routine) Specialty Diagnoses / Procedures Referred By Elyssa benavides Referred To Contact Diagnoses THYROID NODULE Procedures PRE / POST CARE FOR PROCEDURAL AREA Referral ID Status Reason Start Date Expiration Date Visits Re quested Visits Authorized [id number] 1 1 Encounter Details Date Type Department Care Team (Latest Contact Info) Description 11/02/2023 9:41 AM CDT - 11/02/2023 11:59 PM CDT Hospital Encounter [facility] Ultrasound [address] [place] [place] [address] Annel Rod MD #[address] [facility] [facility] [address] [place] [phone] Discharge Disposition: Discharged to home or Selfcare Social History Tobacco Use Types Packs/Day Years [...] Sign Reading Time Taken Comments Blood Pressure 136/68 11/02/2023 10:19 AM CDT Pulse 66 11/02/2023 10:19 AM CDT Temperature - - Respiratory Rate 20 11/02/2023 10:19 AM CDT Oxygen Saturation 98% 11/02/2023 10:19 AM CDT Inhaled Oxygen Concentration - - Weight - - Height - - Body Mass Index - - documented in this encounter Discharge Instructions * Discharge Instructions* Shanthi Grant RN - 11/02/2023 10:32 AM CDT Discharge Instructions for Fine Needle Aspiration of Thyroid Return to you normal diet and activities Keep biopsy site covered today. In the morning remove bandage and then may shower. You may have bruising or slight discomfort at the biopsy site for 1-2 days. This is a normal occurrence . You may apply ice intermittently as needed Resume all your medications as ordered by your physician. Resume aspirin or other blood thinner medications in the AM tomorrow When to call your doctor Call your doctor if you develop any of the following: Nausea and/or vomiting that does not go away Fever over 100.4 F or chills Foul-smelling discharge from the procedure site. Pain not relieved by pain medication Chest pain or shortness of breath Bleeding, warmth, redness, or swelling around the incision documented in this encounter Medications at Time of Discharge albuterol 108 (90 Base) MCG/ACT Aerosol Solution take 2 Puffs by inhalation. 04/19/2021 B-D ULTRAFINE III SHORT PEN 31G X 8 MM Misc USE 6 TIMES DAILY DIRECTED 300 Pen Needle 1 06/16/2022 Blood Glucose Monitoring Suppl DeviceIndication s:Type 2 diabetes mellitus with complication, without long-term current use of insulin (HCC) Diagnosis: Diabetes Type 2 Blood testing frequency: 4 times a day 1 Each 11/21/2017 Continuous Blood Gluc Sensor (FreeStyle Eileen 2 Sensor) Misc APPLY 1 SENSOR AND WEAR FOR 14 DAYS TO CHECK BLOOD SUGAR 6 Each 1 08/07/2023 Continuous Glucose Sensor (FreeStyle Eileen 2 Sensor) Misc APPLY 1 SENSOR AND WEAR FOR 14 DAYS TO CHECK BLOOD SUGAR 6 Each 1 10/02/2023 diphenhydrAMINE (BENADRYL) 25 MG Capsule Take 25 mg by mouth every 6 hours as needed. exemestane (AROMASIN) 25 MG Tablet Take 25 mg by mouth daily. gabapentin (NEURONTIN) 300 MG Capsule Take 300 mg by mouth. 06/20/2023 Glucose Blood (ONE TOUCH ULTRA TEST) Strip Test four times daily. 400 Strip 3 02/11/2020 HumaLOG KwikPen 100 UNIT/ML Solution Pen-injector INJECT 28 UNITS UNDER SKIN BEFORE EACH MEAL.; ISF OF 1:15 OF IF>150MG/DL; MAX DAILY DOSE OF 100 UNITS 90 mL 1 06/27/2023 HumaLOG KwikPen 100 UNIT/ML Solution Pen-injector ADMINSTER 22 UNITS UNDER THE SKIN BEFORE EACH MEAL, ISF OF 1:15 OF IF> 150MG/DL MAX DAILY DOSE OF 100 UNITS 30 mL 1 03/07/2023 HYDROcodone-acet aminophen (NORCO) 7.5-325 MG Tablet 0 02/17/2019 methenamine (HIPREX) 1 GM Tablet Take 1 g by mouth 2 times daily. Misc. Devices MiscIndications: LUL (obstructive sleep apnea) Supply and instructions: 1 Each 09/09/2020 naloxone HCl (Narcan) 4 MG/0.1ML Liquid as needed 05/13/2021 OneTouch Delica Lancets 33G Misc 1 Lancet by Does not apply route 4 times daily. 400 Lancet 3 03/09/2021 oxybutynin (DITROPAN XL) 15 MG TABLET SR 24 HR Take 10 mg by mouth daily. 06/28/2022 rivaroxaban (XARELTO) 20 MG Tablet Take 20 mg by mouth daily. amoxicillin-clav ulanate (AUGMENTIN) 500-125 MG Tablet Take 1 Tablet by mouth every 8 hours. 09/07/2023 4 Continuous Blood Gluc Sensor (FreeStyle Eileen 2 Sensor) Misc 1 Each by Does not apply route every 14 days. Change sensor every 14 days. E11.42, insulin dependent 6 Each 1 04/14/2023 4 dicyclomine (BENTYL) 10 MG Capsule Take 10 mg by mouth. 08/24/2023 4 Lantus SoloStar 100 UNIT/ML Solution Pen-injector ADMINISTER 40 UNITS UNDER THE SKIN EVERY MORNING 45 mL 1 06/27/2023 4 methocarbamol (ROBAXIN) 500 MG Tablet Take 500 mg by mouth. 4 nystatin 899544 UNIT/GM Powder 11/09/2021 4 ondansetron (Zofran) 4 MG Tablet Take 1 Tablet by mouth every 8 hours as needed for Nausea - 1st line. 15 Tablet 04/13/2023 4 rOPINIROLE (REQUIP) 5 MG Tablet TAKE 1 TABLET BY MOUTH EVERY NIGHT 90 Tablet 2 07/06/2023 4 documented as of this encounter Miscellaneous Notes * Interdisciplinary - Shanthi Grant RN - 11/02/2023 10:00 AM CDT Pt. Transported to [facility] emergency department . Procedure explained to pt. Dr. Carlton to see pt. And explain procedure, understanding stated Consent formed signed. Positioned onto table on back * Interdisciplinary - Paige Poole RN - 10/30/2023 1:39 PM CDT Called and rescheduled patient for thyroid biopsy. Medications reviewed and patient is aware to stop Xarelto tomorrow. documented in this encounter Plan of Treatment Upcoming Encounters Date Type Department Care Team (Late st Contact Info) Description 05/17/2024 2:45 PM DIET ASSISTANT Office Visit [facility] - Endocrinology - [place] [address] [place] [phone] Annel Rod MD #[address] [phone] documented as of this encounter Procedures Procedure Name Priority Date/Time Associated Diagnosis Comments US GUIDANCE AND THYROID BIOPSY Routine 11/02/2023 10:56 AM CDT Thyroid nodule PATHOLOGY CYTOLOGY NON-PARTY PLAN SALES UNIT SALES LEADER Routine 11/02/2023 10:37 AM CDT Thyroid nodule documented in this encounter Results * US GUIDANCE AND THYROID BIOPSY (11/02/2023 10:56 AM CDT) Anatomical Region Laterality Modality BODY N/A Ultrasound 11/02/2023 11:4 8 AM CDT Addenda Addendum by David Carlton MD on 11/06/2023 3:34 PM CDT ADDENDUM REPORT: ADDENDUM: This addendum report supersedes the original report dated 11/02/2023 Pathology report indicates: Benign. ??Favor benign follicular nodule. END OF ADDENDUM REPORT EXAM DESCRIPTION: ?? US GUIDANCE AND THYROID BIOPSY HISTORY: ?? thyroid nodule ? COMPARISON: ?? Thyroid ultrasound 09/08/2023 TECHNIQUE/FINDINGS: Immediately prior to the procedure, the healthcare team performed the time-out and verbally confirmed that the patient, the planned procedure, the site and side were accurate. The anterior neck was prepped and draped in usual sterile technique. Local anesthesia was achieved with injection of 1% lidocaine. ?? Under sonographic visualization, fine needle aspiration was performed of the ??left ??thyroid nodule, with ??5 passes made with a 25-gauge needle. ??Needle placement was documented with sonographic images. ??Samples were provided to the pathologist, who indicated preliminary specimen adequacy. ?? There were no immediate complications. ??The patient tolerated the procedure well without complication. Estimated blood loss: ??<5 ??mL IMPRESSION: Successful ultrasound guided fine-needle aspiration of a left thyroid nodule. THIS IS AN ELECTRONICALLY VERIFIED FINAL REPORT 11/02/2023 11:48 AM - Electronically signed by ??David Carlton M.D., JR: D: ??11/02/2023 11:48 AM T: ??11/02/2023 11:48 AM Report ID: [id number] Reading Location: ??[id number] THIS IS AN ELECTRONICALLY VERIFIED FINAL REPORT 11/06/2023 3:32 PM ??Addendum Electronically signed by David Carlton M.D., JR: D: ??11/06/2023 3:32 PM T: ??11/06/2023 3:32 PM Report ID: [id number] Reading Location: ??[id number] Impressions 11/02/2023 11:50 AM CDT IMPRESSION: Successful ultrasound guided fine-needle aspiration of a left thyroid nodule. Narrative 11/02/2023 11:50 AM CDT EXAM DESCRIPTION: ?? US GUIDANCE AND THYROID BIOPSY HISTORY: ?? thyroid nodule ? COMPARISON: ?? Thyroid ultrasound 09/08/2023 TECHNIQUE/FINDINGS: Immediately prior to the procedure, the healthcare team performed the time-out and verbally confirmed that the patient, the planned procedure, the site and side were accurate. The anterior neck was prepped and draped in usual sterile technique. Local anesthesia was achieved with injection of 1% lidocaine. ?? Under sonographic visualization, fine needle aspiration was performed of the ??left ??thyroid nodule, with ??5 passes made with a 25-gauge needle. ??Needle placement was documented with sonographic images. ??Samples were provided to the pathologist, who indicated preliminary specimen adequacy. ?? There were no immediate complications. ??The patient tolerated the procedure well without complication. Estimated blood loss: ??<5 ??mL THIS IS AN ELECTRONICALLY VERIFIED FINAL REPORT 11/02/2023 11:48 AM - Electronically signed by ??David Carlton M.D. JR: D: ??11/02/2023 11:48 AM T: ??11/02/2023 11:48 AM Report ID: [id number] Reading Location: ??[id number] Procedure Note David Carlton MD - 11/02/2023 EXAM DESCRIPTION: US GUIDANCE AND THYROID BIOPSY HISTORY: thyroid nodule COMPARISON: Thyroid ultrasound 09/08/2023 TECHNIQUE/FINDINGS: Immediately prior to the procedure, the healthcare team performed the time-out and verbally confirmed that the patient, the planned procedure, the site and side were accurate. The anterior neck was prepped and draped in usual sterile technique. Local anesthesia was achieved with injection of 1% lidocaine. Under sonographic visualization, fine needle aspiration was performed of the left thyroid nodule, with 5 passes made with a 25-gauge needle. Needle placement was documented with sonographic images. Samples were provided to the pathologist, who indicated preliminary specimen adequacy. There were no immediate complications. The patient tolerated the procedure well without complication. Estimated blood loss: <5 mL THIS IS AN ELECTRONICALLY VERIFIED FINAL REPORT 11/02/2023 11:48 AM - Electronically signed by David Carlton M.D. JR: Report ID: [id number] Reading Location: [id number] IMPRESSION: Successful ultrasound guided fine-needle aspiration of a left thyroid nodule. us Annel Rod MD [facility] US ORDERABLES Edited Result - Final * Pathology Cytology Non-PARTY PLAN SALES UNIT SALES LEADER (11/02/2023 10:37 AM CDT) Case Report Medical Cytology Report ? Case: [id number] ? Authorizing Provider: ??Annel Rod MD ? Collected: ? 11/02/2023 10:37 AM ? Ordering Location: ? [facility] ? Received: ?11/02/2023 11:03 AM ? [facility] ? Ultrasound ? Pathologist: ? Sandrine Snowden MD PhD ? Specimen: ?Thyroid, Ultrasound Guided Left Fine Needle Aspiration ? 11/03/2023 11:21 AM CDT [facility] FINAL DIAGNOSIS Thyroid, left inferior 1.6 x 1.6 x 1.2 cm, ultrasound guided fine needle aspiration: - Adequate for evaluation - Benign - Favor benign follicular nodule (see comment) 11/03/2023 11:21 AM CDT [facility] Intraoperative Consultation A. Ultrasound Guided Left Fine Needle Aspiration PATHOLOGY IMMEDIATE INTERPRETATION : Thyroid, left inferior 1.6 x 1.6 x 1.2 cm, ultrasound guided fine needle aspiration: Episode #1, Passes 1-5 - Adequate. Conveyed to Dr. Carlton by Dr. Snowden on November 02, 2023. 11/03/2023 11:21 AM CDT [facility] Comment Abundant colloid, scant bland follicular cells, no macrophages, and abundant debris. 11/03/2023 11:21 AM CDT [facility] Gross Description A. Ultrasound Guided Left Fine Needle Aspiration Specimen presented is an ultrasound guided left thyroid fine needle aspiration, performed by Dr. Carlton and assisted for adequacy by Dr. Snowden. The specimen consists of less than 1 mL of bright red fluid from which five Diff-Quik and five Pap stains (fixed in 95% alcohol) are prepared for cytologic examination. In addition, a cell block (fixed in 10% neutral buffered formalin) is also made for cytologic examination. The specimen was deemed adequate by Dr. Snowden and relayed to Dr. Carlton. KS/sb Total time of fixation is 9 hours, 46 minutes. 11/03/2023 11:21 AM CDT [facility] Microscopic Description Microscopic examination was performed which supports the final diagnosis. All control tissues stained appropriately. 11/03/2023 11:21 AM CDT [facility] Tissue THYROID STRUCTURE / Unknown 11/02/2023 10:37 AM CDT 11/02/2023 11:03 AM CDT us Annel Rod MD PATHOLOGY/CYTOLOGY ORDERABLES Fi nal Result [facility] [address] [place] [address] documented in this encounter Visit Diagnoses Diagnosis Thyroid nodule Nontoxic uninodular goiter documented in this encounter Administered Medications Inactive Administered Medications - up to 3 most recent administrations Medication Order MAR Action Action Date Dose Rate Site lidocaine 1 % injection 5 mL 5 mL, Other, ONCE, 1 dose, On Valeri 11/02/23 at 1100 Given 11/02/2023 10:35 AM CDT 5 mL documented in this encounter Additional Health Concerns Assessment Noted Time PHQ-9 Depression Total Score: 8 01/18/20 23 2:24 PM CDT documented as of this encounter Care Teams Public Policy Coordinator Relationship Specialty Start Date End Date Justen Gale MD #2 [facility] [address] [place] [address] PCP - General Family Medicine 10/17/17 David Roberts APRN, DATA RECOVERY PLANNER [address] [place] [address] Nurse Practitioner Advanced Practice Nurse 01/31/22 Annel Rod MD #2 [facility] [address] [place] [address] Consulting Physician Endocrinology 07/01/22 documented as of this encounter
--- OUTSIDE RECORDS SUMMARY | 2024-04-26 02:53 | XMS_ITS | Encounter Summary ---
Author Organization [facility] Address [address] [place] [address] Phone Care Team Providers Care Inside Horticultural Specialty Grower Name Role Phone Justen Gale MD Primary Care Provider [phone] David Roberts APRN, CALIBRATION TESTER Unavailable [phone] Annle Rod MD Unavailable Reason for Visit * Reason Onset Date Comments Results 01/17/2024 Encounter Details Date Type Department Care Team (Late st Contact Info) Description 01/17/2024 Telephone [facility] [address] [place] [address] Justen Gale MD #[address] [address] Results Social History Tobacco Use Types Packs/Day [...] encounter Miscellaneous Notes * Telephone Encounter - Nayla Blanco RN - 01/17/2024 4:42 PM CDT Situation: Patient is calling in regards to X-ray results. Background: Patient had X-ray of right wrist completed today 01/17/24. Assessment: Patient advised that X-ray is still in process at this time. Advised that if she sees results become final through MyChart that patient could call office back. Also advised that once results are final provider would review at some point to discuss results. Patient states that if this becomes negative on x-ray she would not know the next steps and is questioning that. Recommendation: No further needs at this time. documented in this encounter Plan of Treatment Upcoming Encounters Date Type Department Care Team (Late st Contact Info) Description 05/17/2024 2:45 PM TELLERS SUPERVISOR Office Visit [facility] - Endocrinology [facility] #2 [place] [address] Annel Rod MD #2 [facility] [address] [place] [address] documented as of this encounter Visit Diagnoses Not on filedocumented in this encounter Additional Health Concerns Assessment Noted Time PHQ-9 Depression Total Score: 8 01/18/20 23 2:24 PM CDT documented as of this encounter Care Teams Inside Horticultural Specialty Grower Relationship Specialty Start Date End Date Justen Gale MD #2 [facility] [address] [place] [address] PCP - General Family Medicine 10/17/17 David Roberts, LOSS PREVENTION CONSULTANT, CALIBRATION TESTER [address] [place] [address] Nurse Practitioner Advanced Practice Nurse 01/31/22 Annel Rod MD [address] [address] Consulting Physician Endocrinology 07/01/22 documented as of this encounter
--- OUTSIDE RECORDS SUMMARY | 2024-04-26 02:53 | XMS_ITS | Encounter Summary ---
Author Organization [facility] Address [address] [place] [address] Phone Care Team Providers Care Regional Controller Name Role Phone Justen Gale MD Primary Care Provider [phone] David Roberts APRN, MARBLE COPER Unavailable [phone] Annel Rod MD Unavailable Reason for Visit * Reason Onset Date Comments Results 11/10/2023 Encounter Details Date Type Department Care Team (Late st Contact Info) Description 11/10/2023 Telephone [facility] - [place] [address] [place] [address] Annel Rod MD #[address] [address] Results Social History Tobacco Use Types Packs/Day [...] encounter Miscellaneous Notes * Telephone Encounter - Annel Rod MD - 11/10/2023 12:17 AM CDT Please inform her that fine needle aspiration biopsy rest result was consistent with benign thyroidnodule We will discuss it further at the next visit. documented in this encounter Plan of Treatment Upcoming Encounters Date Type Department Care Team (Late st Contact Info) Description 05/17/2024 2:45 PM ALMOND BLANCHER OPERATOR Office Visit [facility] - Endocrin[facility] #[address] [place] [address] Annel Rod MD #[address] [address] documented as of this encounter Visit Diagnoses Not on filedocumented in this encounter Additional Health Concerns Assessment Noted Time PHQ-9 Depression Total Score: 8 01/18/20 23 2:24 PM CDT documented as of this encounter Care Teams Regional Controller Relationship Specialty Start Date End Date Justen Gale MD #[address] [address] PCP - General Family Medicine 10/17/17 David Roberts, DIGITAL MARKETING ANALYST, MARBLE COPER [address] [place] [address] Nurse Practitioner Advanced Practice Nurse 01/31/22 Annel Rod MD #[address] [address] Consulting Physician Endocrinology 07/01/22 documented as of this encounter
--- OUTSIDE RECORDS SUMMARY | 2024-04-26 02:53 | XMS_ITS | Encounter Summary ---
Author Organization [facility] Care Team Providers Care Hi Ranger Operator Name Role Phone Justen Gale MD Primary Care Provider [phone] David Roberts APRN, [facility] Unavailable [phone] Annel Rod MD Unavailable Encounter Details Date Type Department Care Team (Latest Contact Info) Description 11/08/2023 Travel Social History Tobacco Use Types Packs/Day [...] as of this encounter Plan of Treatment Upcoming Encounters Date Type Department Care Team (Late st Contact Info) Description 05/17/2024 2:45 PM BACON DE RINDER Office Visit [facility] #[address] [place] [phone] Annel Rod MD #[address] [address] documented as of this encounter Visit Diagnoses Not on filedocumented in this encounter Additional Health Concerns Assessment Noted Time PHQ-9 Depression Total Score: 8 01/18/20 23 2:24 PM CDT documented as of this encounter Care Teams Hi Ranger Operator Relationship Specialty Start Date End Date Justen Gale MD #[address] [address] PCP - General Family Medicine 10/17/17 David Roberts APRN, [facility] [address] [place] [address] Nurse Practitioner Advanced Practice Nurse 01/31/22 Annel Rod MD #[address] [address] Consulting Physician Endocrinology 07/01/22 documented as of this encounter
--- OUTSIDE RECORDS SUMMARY | 2024-04-26 02:53 | XMS_ITS | Encounter Summary ---
Author Organization [facility] Address [address] [place] [address] Phone Care Team Providers Care Bedspread Inspector Name Role Phone Justen Gale MD Primary Care Provider [phone] David Roberts APRN, PLACER MINER Unavailable [phone] Annel Rod MD Unavailable Reason for Visit * Reason Onset Date Comments Palpitations 03/18/2024 Encounter Details Date Type Department Care Team (Late st Contact Info) Description 03/18/2024 [facility] [address] [place] [address] Justen Gale MD #[address] [address] Palpitations Social History Tobacco Use Types Packs/Day Years [...] encounter Miscellaneous Notes * Telephone Encounter - Chantel MccloudNURIS - 03/18/2024 10:47 AM STARCHMAKER SITUATION: Patient concerned for heart rate BACKGROUND: Caller contacting PCP office. [place] funny sensation in jugular vein yesterday Per chart review, hypertension and history of DVT and PE, history of breast cancer States that doctors think blood clots were due to cancer medication - exemestane (which is is stillcurrently taking) States she has been under a lot of stress this past week ASSESSMENT: Symptom Description / Location: Increased shortness of breath at night when laying flat the past couple of nights Has LUL, is still wearing CPAP Shortness of breath resolves shortly after sitting up Denies cough, nasal congestion, shortness of breath at rest or with activity (only at night when laying flat) Funny sensation in jugular vein of neck Almost like it is pulsating Suddenly got a strong pulsating feeling - came and went quickly Patient states it happened 2-3 times yesterday One time just while laying down, unsure what she was doing during the other times Unsure if heart was racing at that time, did not pay attention Denies chest pain, shortness of breath, shoulder pain, jaw pain Pain: Caller denies pain. Fever: Denies fever. Treatment / Response: rest with complete resolution. Unable to complete full assessment due to emergent nature of call RECOMMENDATION: Caller agreeable to disposition: go to ED now. is going to drive patient to Emergency Department [facility]. Care advice provided per triage guideline. Caller verbalized understanding. - See care advice and disposition for Guideline. First positive answer recorded, all responses to prior questions were negative. If symptoms increase, change or if new symptoms develop, call your health care provider or call back. Recommendations were based on caller information and is not a diagnosis. Verified and reviewed all triage information with caller. Reason for Disposition Age > 60 years (Exception: Brief heartbeat symptoms that went away and now feels well.) Any history of prior blood clot in leg or lungs Protocols used: Heart Rate and Heartbeat Vpkohosbs-V-MO, Breathing Fvkakzhdtm-P-FK CHMAKER documented in this encounter Plan of Treatment Upcoming Encounters Date Type Department Care Team (Late st Contact Info) Description 05/17/2024 2:45 PM STARCHMAKER Office Visit [facility] - Endocrinology - [place] [address] [place] [address] Annel Rod MD #[address] [address] documented as of this encounter Visit Diagnoses Not on filedocumented in this encounter Additional Health Concerns Assessment Noted Time PHQ-9 Depression Total Score: 8 01/18/20 23 2:24 PM CDT documented as of this encounter Care Teams Bedspread Inspector Relationship Specialty Start Date End Date Justen Gale MD #[address] [address] PCP - General Family Medicine 10/17/17 David Roberts APRN, PLACER MINER [address] [place] [address] Nurse Practitioner Advanced Practice Nurse 01/31/22 Annel Rod MD #[address] [address] Consulting Physician Endocrinology 07/01/22 documented as of this encounter
--- OUTSIDE RECORDS SUMMARY | 2024-04-26 02:53 | XMS_ITS | Encounter Summary ---
Author Organization [facility] Address [address] [place] [address] Phone Care Team Providers Care Public Health Teacher Name Role Phone Justen Gale MD Primary Care Provider [phone] David Roberts APRN, LEGISLATORS Unavailable [phone] Annel Rod MD Unavailable Reason for Visit * Radiology Services (Today) - Closed Specialty Diagnoses / Procedures Referred By Elyssa benavides Referred To Contact Radiology Diagnoses Right wrist pain Procedures XR WRIST 3 OR MORE VIEWS RIGHT XR HAND 3 OR MORE VIEWS RIGHT Justen Gale MD #[address] [address] Phone: tel: fax: Referral ID Status Reason Start Date Expiration Date Visits Re quested Visits Authorized [id number] Closed 01/17/2024 1 1 Encounter Details Date Type Department Care Team (Latest Contact Info) Description 01/17/2024 2:26 PM CDT - 01/17/2024 11:59 PM CDT Hospital Encounter [facility] Diagnostic Radiology [address] [place] [address] Justen Gale MD #[address] [address] Discharge Disposition: Discharged to home or Selfcare [...] on file documented as of this encounter Medications at Time of Discharge albuterol 108 (90 Base) MCG/ACT Aerosol Solution take 2 Puffs by inhalation. 04/19/2021 B-D ULTRAFINE III SHORT PEN 31G X 8 MM Misc USE 6 TIMES DAILY DIRECTED 300 Pen Needle 1 06/16/2022 Blood Glucose Monitoring Suppl DeviceIndication s:Type 2 diabetes mellitus with complication, without long-term current use of insulin ([facility]) Diagnosis: Diabetes Type 2 Blood testing frequency: [...] 30 mL 1 03/07/2023 HYDROcodone-acet aminophen (NORCO) 10-325 MG Tablet Take 1 Tablet by mouth. 12/28/2023 HYDROcodone-acet aminophen (NORCO) 7.5-325 MG Tablet 0 [...] Tablet Take 20 mg by mouth daily. Continuous Blood Gluc Sensor (FreeStyle Eileen 2 Sensor) Misc 1 Each by Does not apply route every 14 days. Change sensor every 14 days. E11.42, insulin dependent 6 Each 1 04/14/2023 4 Lantus SoloStar 100 UNIT/ML Solution Pen-injector ADMINISTER 40 UNITS UNDER THE SKIN EVERY MORNING 45 mL 1 06/27/2023 4 ondansetron (Zofran) 4 MG Tablet Take 1 Tablet by mouth every 8 hours as needed for Nausea - 1st line. 15 Tablet 11/08/2023 4 rOPINIROLE (REQUIP) 5 MG Tablet TAKE 1 TABLET BY MOUTH EVERY NIGHT 90 Tablet 2 07/06/2023 4 documented as of this encounter Plan of Treatment Upcoming Encounters Date Type Department Care Team (Late st Contact Info) Description 05/17/2024 2:45 PM BINDER OPERATOR Office Visit [facility] - Endocrinology - [place] [address] [place] [address] Annel Rod MD [address] [address] documented as of this encounter Procedures Procedure Name Priority Date/Time Associated Diagnosis Comments XR WRIST 3 OR MORE VIEWS RIGHT Today 01/17/2024 2:47 PM CDT Right wrist pain documented in this encounter Results * XR WRIST 3 OR MORE VIEWS RIGHT (01/17/2024 2:47 PM CDT) Anatomical Region Laterality Modality UPPER EXTREMITY, wrist Right Digital R adiography 01/18/2024 1:3 4 PM CDT Impressions 01/18/2024 1:36 PM CDT IMPRESSION: Mild osteoarthritis of the right wrist and hand greatest at the thumb CMC. Narrative 01/18/2024 1:36 PM CDT EXAM DESCRIPTION: XR WRIST 3 OR MORE VIEWS RIGHT REASON FOR STUDY: Right hematoma few months ago. Wrist pain increasing over last 2-3 days that travels up forearm. Swelling from wrist to mid metacarpals. ??No previous injuries. ?? TECHNIQUE: 3 ??radiographic view(s) of the ??airways . COMPARISON: None FINDINGS: BONES/JOINTS: 2 mm well corticated ossific fragment at the lateral border 1st MTP likely degenerative. ??Mild osteoarthritis of the right wrist. ??There is no acute fracture, malalignment or osseous abnormality. The joint spaces are normal. SOFT TISSUES: Within normal limits. ?? THIS IS AN ELECTRONICALLY VERIFIED FINAL REPORT 01/18/2024 1:34 PM - Electronically signed by ??Olinda Bernal M.D. FT: FT D: ??01/18/2024 1:34 PM T: ??01/18/2024 1:34 PM Report ID: [id number] Reading Location: ??[id number] Procedure Note Olinda Wells MD - 01/18/2024 EXAM DESCRIPTION: XR WRIST 3 OR MORE VIEWS RIGHT REASON FOR STUDY: Right hematoma few months ago. Wrist pain increasing over last 2-3 days that travels up forearm. Swelling from wrist to mid metacarpals. No previous injuries. TECHNIQUE: 3 radiographic view(s) of the airways . COMPARISON: None FINDINGS: BONES/JOINTS: 2 mm well corticated ossific fragment at the lateral border 1st MTP likely degenerative. Mild osteoarthritis of the right wrist. There is no acute fracture, malalignment or osseous abnormality. The joint spaces are normal. SOFT TISSUES: Within normal limits. THIS IS AN ELECTRONICALLY VERIFIED FINAL REPORT 01/18/2024 1:34 PM - Electronically signed by Olinda Bernal M.D. FT: FT Report ID: [id number] Reading Location: [id number] IMPRESSION: Mild osteoarthritis of the right wrist and hand greatest at the thumb CMC. us Justen Gale MD IMG DIAGNOSTIC ORDERABLES Fin al Result documented in this encounter Visit Diagnoses Diagnosis Right wrist pain Pain in joint, forearm documented in this encounter Additional Health Concerns Assessment Noted Time PHQ-9 Depression Total Score: 8 01/18/20 23 2:24 PM CDT documented as of this encounter Care Teams Public Health Teacher Relationship Specialty Start Date End Date Justen Gale MD #[address] [address] PCP - General Family Medicine 10/17/17 David Roberts APRN, LEGISLATORS [address] [place] [address] Nurse Practitioner Advanced Practice Nurse 01/31/22 Annel Rod MD #[address] [address] Consulting Physician Endocrinology 07/01/22 documented as of this encounter
--- OUTSIDE RECORDS SUMMARY | 2024-04-26 02:53 | XMS_ITS | Encounter Summary ---
Author Organization [facility] Address [address] [place] [address] Phone Care Team Providers Care Presidential Support Specialist Name Role Phone Justen Gale MD Primary Care Provider [phone] David Roberts APRN, SENIOR MECHANICAL TECHNICIAN Unavailable [phone] Annel Rod MD Unavailable Reason for Referral * Consult, Test & Initiate Treatment (Less Than 4 Weeks) - Canceled Specialty Diagnoses / Procedures Referred By Contkristina t Referred To Contact Diagnoses Right wrist pain Jsuten Gale MD #[address] [address] Phone: tel: fax: Referral ID Status Reason Start Date Expiration Date V isits Requested Visits Authorized [id number] Canceled 01/19/2024 1 1 Scheduling Instructions Karly is being referred to [facility] or other specialist in patient's insurance network for 3 months history right lateral wrist pain. Negative x ray. Unable to do mri due to nerve stimulator See below for Karly's current medications, allergies [...] a day, Disp: 1 Each, Rfl: 0 Continuous Blood Gluc Sensor (FreeStyle Eileen 2 [...] , Rfl: HYDROcodone-acetaminophen (NORCO) 7.5-325 MG Tablet, TK 1 T PO QID PRN. DO NOT FILL UNTIL 02/13/2019 (Patient not taking: Reported on 01/15/2024), Disp: , Rfl: 0 Lantus SoloStar 100 UNIT/ML Solution Pen-injector, ADMINISTER 40 UNITS UNDER THE SKIN EVERY MORNING (Patient taking differently: 32 Units. ADMINISTER 40 UNITS UNDER THE SKIN EVERY MORNING), Disp: 45 mL, Rfl: 1 methenamine (HIPREX) 1 GM Tablet, Take 1 g by mouth 2 times daily., Disp: , Rfl: Misc. Devices Mis, Supply and instructions:, Disp: 1 Each, Rfl: 0 naloxone HCl (Narcan) 4 MG/0.1ML Liquid, as needed, Disp: , Rfl: ondansetron (Zofran) 4 MG Tablet, Take 1 Tablet by mouth every 8 hours as needed for Nausea - 1st line., Disp: 15 Tablet, Rfl: 0 OneTouch Delica [...] left female breast (HCC) Restless legs syndrome LUL (obstructive sleep apnea) Hyperthyroidism Dysuria Acute cystitis [...] to 59.9 in adult (HCC) Thyroid nodule Encounter Details Date Type Department Care Team (Late st Contact Info) Description 01/19/2024 Telephone [facility] [address] [place] [address] Justen Gale MD #[address] [address] Social History Tobacco Use Types Packs/Day Years [...] encounter Miscellaneous Notes * Telephone Encounter - Justen Gale MD - 01/19/2024 9:11 AM CDT done documented in this encounter Plan of Treatment Upcoming Encounters Date Type Department Care Team (Late st Contact Info) Description 05/17/2024 2:45 PM OPERATING ENGINEER APPRENTICE Office Visit [facility] - Endocrinology - [place] [address] [place] [address] Annel Rod MD #[address] [address] Scheduled Referrals Name Type Priority Associated Diagnoses Order Schedule EXTERNAL HAND SURGERY REFERRAL Outpatient Referral Less Than 4 weeks Right wrist pain Expected: 01/19/2024, Expires: 01/18/2025 documented as of this encounter Visit Diagnoses Diagnosis Right wrist pain- Primary Pain in joint, forearm documented in this encounter Additional Health Concerns Assessment Noted Time PHQ-9 Depression Total Score: 8 01/18/20 23 2:24 PM CDT documented as of this encounter Care Teams Presidential Support Specialist Relationship Specialty Start Date End Date Justen Gale MD #[address] [address] PCP - General Family Medicine 10/17/17 David Roberts, DIGITAL CAMPAIGN MANAGER, SENIOR MECHANICAL TECHNICIAN [address] [place] [address] Nurse Practitioner Advanced Practice Nurse 01/31/22 Annel Rod MD #[address] [address] Consulting Physician Endocrinology 07/01/22 documented as of this encounter
--- OUTSIDE RECORDS SUMMARY | 2024-04-26 02:53 | XMS_ITS | Encounter Summary ---
Author Organization [facility] Address [address] [place] [address] Phone Care Team Providers Care Pipelaying Fitter Name Role Phone Justen Gale MD Primary Care Provider [phone] David Roberts APRN, SPINDLE REPAIRER Unavailable [phone] Annel Rod MD Unavailable Reason for Visit * Reason Onset Date Comments Medication Management 12/16/2023 Advice Only 12/16/2023 Encounter Details Date Type Department Care Team (Late st Contact Info) Description 12/16/2023 Telephone [facility] [address] [place] [address] Justen Gale MD #[address] [address] Medication Management; Advice Only Social History Tobacco Use Types Packs/Day Years [...] encounter Miscellaneous Notes * Telephone Encounter - Yasmin Bravo, RN - 12/16/2023 2:37 PM CDT Patient calling regarding her xarelto. Says she went to the pharmacy and was told they do not have a current order on file for her. Stated they could not do an emergency refill either. Says her Cancer provider, Dr. Khris Beasley was previously ordering xarelto for her. Per patient Phone number is [phone]. This RN called phone number provided and the recording gaveanother number ([phone]) for after hour urgent needs. Patient was given this number and also transferred. She was advised that if she was still not able to get her xarelto ordered to call back and we wouldexplore other options for her. Caller/patient verbalized understanding and was agreeable to recommendation/plan of care documented in this encounter Plan of Treatment Upcoming Encounters Date Type Department Care Team (Late st Contact Info) Description 05/17/2024 2:45 PM BANK GUARD Office Visit [facility] - Endocrin[facility] #[address] [place] [address] Annel Rod MD #2 [facility] [address] [place] [address] documented as of this encounter Visit Diagnoses Not on filedocumented in this encounter Additional Health Concerns Assessment Noted Time PHQ-9 Depression Total Score: 8 01/18/20 23 2:24 PM CDT documented as of this encounter Care Teams Pipelaying Fitter Relationship Specialty Start Date End Date Justen Gale MD #2 [facility] [address] [place] [address] PCP - General Family Medicine 10/17/17 David Roberts APRN, SPINDLE REPAIRER [address] [place] [address] Nurse Practitioner Advanced Practice Nurse 01/31/22 Annel Rod MD #[address] [phone] Consulting Physician Endocrinology 07/01/22 documented as of this encounter
--- OUTSIDE RECORDS SUMMARY | 2024-04-26 02:53 | XMS_ITS | Encounter Summary ---
Author Organization [facility] Address [address] [place] [address] Phone Care Team Providers Care Locomotive Engineer Name Role Phone Justen Gale MD Primary Care Provider [phone] David Roberts APRN, SUPERVISOR TRAVEL INFORMATION CENTER Unavailable [phone] Annel Rod MD Unavailable Reason for Visit * Reason Comments Wrist Pain Right pain Encounter Details Date Type Department Care Team (Late st Contact Info) Description 01/17/2024 2:00 PM CDT Office Visit [facility] - [facility] [address] [place] [address] Justen Gale MD [address] [address] Right wrist pain (Primary Dx) Discharge Disposition: Discharged to home or Selfcare [...] Mass Index 50.26 01/17/2024 1:47 PM CDT documented in this encounter Progress Notes * Alvina Lockwood, RMA - 01/17/2024 2:00 PM CDT Karly Winston Marques, 68 y.o., female is here for Wrist Pain Medication Refills: Patient reports/denies need for medication refills. Orders Pended: no Requested Prescriptions No prescriptions requested or ordered in this encounter Home Medications Medication Sig Start Date End Date Taking? Authorizing Provider albuterol 108 (90 Base) MCG/ACT Aerosol Solution take 2 Puffs by inhalation. 04/19/21 Yes Tyler Smith MD amoxicillin-clavulanate (AUGMENTIN) 500-125 MG Tablet Take 1 Tablet by mouth every 8 hours. Patient not taking: Reported on 01/15/2024 09/07/23 Tyler Smith MD B-D ULTRAFINE III SHORT PEN 31G X 8 MM Misc USE 6 TIMES DAILY DIRECTED 06/16/22 Yes Justen Gale MD Blood Glucose Monitoring Suppl Device Diagnosis: Diabetes Type 2 Blood testing frequency: 4 times aday 11/21/17 Yes Justen Gale MD Continuous Blood Gluc Sensor (FreeStyle Eileen 2 Sensor) Misc APPLY 1 SENSOR AND WEAR FOR 14 DAYS TOCHECK BLOOD SUGAR 08/07/23 Yes Annel Rod MD Continuous Blood Gluc Sensor (FreeStyle Eileen 2 Sensor) Misc 1 Each by Does not apply route every 14 days. Change sensor every 14 days. E11.42, insulin dependent 04/14/23 Yes Annel Rod MD Continuous Glucose Sensor (FreeStyle Eileen 2 Sensor) Misc APPLY 1 SENSOR AND WEAR FOR 14 DAYS TO CHECK BLOOD SUGAR 10/02/23 Yes Annel Rod MD dicyclomine (BENTYL) 10 MG Capsule Take 10 mg by mouth. Patient not taking: Reported on 01/15/2024 08/24/23 Tyler Smith MD diphenhydrAMINE (BENADRYL) 25 MG Capsule Take 25 mg by mouth every 6 hours as needed. Yes Tyler Smith MD exemestane (AROMASIN) 25 MG Tablet Take 25 mg by mouth daily. Yes Tyler Smith MD gabapentin (NEURONTIN) 300 MG Capsule Take 300 mg by mouth. 06/20/23 Yes Tyler Smith MD Glucose Blood (ONE TOUCH ULTRA TEST) Strip Test four times daily. 02/11/20 Yes Annel Rod MD HumaLOG KwcesiaPen 100 UNIT/ML Solution Pen-injector INJECT 28 UNITS UNDER SKIN BEFORE EACH MEAL.; ISFOF 1:15 OF IF>150MG/DL; MAX DAILY DOSE OF 100 UNITS 06/27/23 Yes Annel Rod MD HumaLOG KwikPen 100 UNIT/ML Solution Pen-injector ADMINSTER 22 UNITS UNDER THE SKIN BEFORE EACH MEAL, ISF OF 1:15 OF IF> 150MG/DL MAX DAILY DOSE OF 100 UNITS 03/07/23 Yes Annel Rod MD HYDROcodone-acetaminophen (NORCO) 10-325 MG Tablet Take 1 Tablet by mouth. 12/28/23 Yes Tyler Smith MD HYDROcodone-acetaminophen (NORCO) 7.5-325 MG Tablet TK 1 T PO QID PRN. DO NOT FILL UNTIL 02/13/2019 Patient not taking: Reported on 01/15/2024 02/17/19 Tyler Smith MD Lantus SoloStar 100 UNIT/ML Solution Pen-injector ADMINISTER 40 UNITS UNDER THE SKIN EVERY MORNING Patient taking differently: 32 Units. ADMINISTER 40 UNITS UNDER THE SKIN EVERY MORNING 06/27/23 Yes Annel Rod MD methenamine (HIPREX) 1 GM Tablet Take 1 g by mouth 2 times daily. Yes Tyler Smith MD methocarbamol (ROBAXIN) 500 MG Tablet Take 500 mg by mouth. Patient not taking: Reported on 01/15/2024 Tyler Smith MD [facility]. Devices [facility] Supply and instructions: 09/09/20 Yes Justen Gale MD naloxone HCl (Narcan) 4 MG/0.1ML Liquid as needed 05/13/21 Yes Tyler Smith MD nystatin 384280 UNIT/GM Powder 11/09/21 Tyler Smith MD ondansetron (Zofran) 4 MG Tablet Take 1 Tablet by mouth every 8 hours as needed for Nausea - 1st line. 11/08/23 Yes Justen Gale MD OneTouch Delica Lancets 33G [facility] 1 Lancet by Does not apply route 4 times daily. 03/09/21 Yes Annel Rod MD oxybutynin (DITROPAN XL) 15 MG TABLET SR 24 HR Take 10 mg by mouth daily. 06/28/22 Yes Tyler Smith MD rivaroxaban (XARELTO) 20 MG Tablet Take 20 mg by mouth daily. Yes Tyler Smith MD rOPINIROLE (REQUIP) 5 MG Tablet TAKE 1 TABLET BY MOUTH EVERY NIGHT Patient taking differently: Take 5 mg by mouth nightly. 07/06/23 Yes Justen Gale MD There are no discontinued medications. I have reviewed the home medication list with the patient and have reconciled discrepancies. The list is accurate to the best of my knowledge. Smoking Status: Social History Tobacco Use Smoking status: Never Smokeless tobacco: Never Vaping Use Vaping status: Never Used Substance Use Topics Alcohol use: No Drug use: No Smoking Cessation Counseling Given: no Health Care Maintenance: Health Maintenance Due Topic Date Due Diabetes: Eye Exam Never done Pneumococcal Immunization (65+ years) (1 of 2 - PCV) Never done Zoster Immunization (1 of 2) Never done Respiratory Syncytial Virus (RSV) Immunization (Adult) (1 - Risk 60-74 years 1- dose series) Never done Diabetes: Foot Exam 08/12/2020 Influenza Immunization (1) 12/24/2023 SARS-COV-2 Immunization (2023- season) 2023 Orders Pended: no The following BPA's have been addressed with the patient today: No bPAs * Justen Gale MD - 01/17/2024 2:00 PM CDT SUBJECTIVE: Karly Marques is here to follow-up/ evaluation on her 1. Right wrist pain Past Medical History Positives Diagnosis Date Breast cancer (HCC) Diabetes (HCC) DVT (deep venous thrombosis) (HCC) High blood pressure History of pulmonary embolus (PE) Hyperthyroidism Neuropathy Osteoarthritis Restless leg syndrome Sciatica Sleep apnea Spinal stenosis Past Surgical History: Procedure Laterality Date BACK SURGERY 02/16/2023 [facility]; Spinal Stmulator BREAST SURGERY CHOLECYSTECTOMY LAP,INGUINAL HERNIA REPR,INITIAL MASTECTOMY BILATERAL Bilateral 2014 Social History Tobacco Use Smoking status: Never Smokeless tobacco: Never Substance Use Topics Alcohol use: No Exercise: no ROS: She She denies symptoms of transient ischemic attacks. No lightheadedness, palpitations, or syncope. No edema. She is compliant in taking her medication and denies medication side effects. Right wrist pain lateral 12 weeks ago woke with hematoma right hand Went to urgent care Told it would heal Had pain in wrist too Took weeks to heal Wrist pain never went away Past week wrist pain worse Has knot lateral wrist and distal forearm Pain with using right hand Few days ago went to urgent care. No x rays done Told has tendon or ligament issue Pain meds not helping wrist pain Hematoma: day prior was scrubbing furniture. Doesn't recall specific injury though No bleeding elsewhere On xarelto Outpatient Medications Marked as Taking for the 01/17/24 encounter (Office Visit) with Justen Gale MD Medication Sig Dispense Refill albuterol 108 (90 Base) MCG/ACT Aerosol Solution take 2 Puffs by inhalation. B-D ULTRAFINE III SHORT PEN 31G X 8 MM Misc USE 6 TIMES DAILY DIRECTED 300 Pen Needle 1 Blood Glucose Monitoring Suppl Device Diagnosis: Diabetes Type 2 Blood testing frequency: 4 times aday 1 Each 0 Continuous Blood Gluc Sensor (FreeStyle Eileen 2 Sensor) Misc APPLY 1 SENSOR AND WEAR FOR 14 DAYS TOCHECK BLOOD SUGAR 6 Each 1 Continuous Blood Gluc Sensor (FreeStyle Eileen 2 Sensor) Misc 1 Each by Does not apply route every 14 days. Change sensor every 14 days. E11.42, insulin dependent 6 Each 1 Continuous Glucose Sensor (FreeStyle Eileen 2 Sensor) [facility] APPLY 1 SENSOR AND WEAR FOR 14 DAYS TO CHECK BLOOD SUGAR 6 Each 1 diphenhydrAMINE (BENADRYL) 25 MG Capsule Take 25 mg by mouth every 6 hours as needed. exemestane (AROMASIN) 25 MG Tablet Take 25 mg by mouth daily. gabapentin (NEURONTIN) 300 MG Capsule Take 300 mg by mouth. Glucose Blood (ONE TOUCH ULTRA TEST) Strip Test four times daily. 400 Strip 3 HumaLOG KwikPen 100 UNIT/ML Solution Pen-injector INJECT 28 UNITS UNDER SKIN BEFORE EACH MEAL.; ISFOF 1:15 OF IF>150MG/DL; MAX DAILY DOSE OF 100 UNITS 90 mL 1 HumaLOG KwikPen 100 UNIT/ML Solution Pen-injector ADMINSTER 22 UNITS UNDER THE SKIN BEFORE EACH MEAL, ISF OF 1:15 OF IF> 150MG/DL MAX DAILY DOSE OF 100 UNITS 30 mL 1 HYDROcodone-acetaminophen (NORCO) 10-325 MG Tablet Take 1 Tablet by mouth. Lantus SoloStar 100 UNIT/ML Solution Pen-injector ADMINISTER 40 UNITS UNDER THE SKIN EVERY MORNING (Patient taking differently: 32 Units. ADMINISTER 40 UNITS UNDER THE SKIN EVERY MORNING) 45 mL 1 methenamine (HIPREX) 1 GM Tablet Take 1 g by mouth 2 times daily. [facility]. Devices [facility] Supply and instructions: 1 Each 0 naloxone HCl (Narcan) 4 MG/0.1ML Liquid as needed ondansetron (Zofran) 4 MG Tablet Take 1 Tablet by mouth every 8 hours as needed for Nausea - 1st line. 15 Tablet 0 OneTouch Delica Lancets 33G [facility] 1 Lancet by Does not apply route 4 times daily. 400 Lancet 3 oxybutynin (DITROPAN XL) 15 MG TABLET SR 24 HR Take 10 mg by mouth daily. rivaroxaban (XARELTO) 20 MG Tablet Take 20 mg by mouth daily. rOPINIROLE (REQUIP) 5 MG Tablet TAKE 1 TABLET BY MOUTH EVERY NIGHT (Patient taking differently: Take 5 mg by mouth nightly.) 90 Tablet 2 Allergies Allergen Reactions Ceftriaxone Anaphylaxis Cephalosporins Anaphylaxis Dermatological Products, [facility]. Hives and Itching SURGICAL TAPE Lorazepam Other (see Comments) and Unknown Aggrevates restless leg syndrome Aggrevates restless leg syndrome Latex Rash Levofloxacin Rash and Other (see Comments) Macrobid [Nitrofurantoin] Itching Meropenem Rash Lisinopril Swelling Lower extremity edema Medical Adhesive Remover Rash Norvasc [Amlodipine Besylate] Swelling Leg swelling Oxycodone Unknown Reglan [Metoclopramide Hcl] Unknown Reslizumab Unknown Ketorolac Itching Pregabalin Other (see Comments) Sulfamethoxazole-Trimethoprim Itching Trazodone Other (see Comments) Shaky, restlessness, itching, throat swelling LABS Lab Results Component Value Date WBC 9.79 09/16/2022 HEMOGLOBIN 13.4 09/16/2022 HEMATOCRIT 42.6 09/16/2022 PLATELETCNT 331 09/16/2022 CHOLESTEROL 216 (H) 04/23/2019 TRIGLYCRIDES 154 (H) 04/23/2019 HDLCHOLESTE 50.9 04/23/2019 LDL 134 (H) 04/23/2019 LDL 101 01/24/2018 LDL 110 11/02/2017 INR 1.1 06/22/2023 HGBA1C 7.8 10/02/2023 HGBA1C 9.5 (A) 05/30/2023 HGBA1C 8.6 (A) 09/14/2022 ESR 56 (H) 12/03/2017 Lab Results Component Value Date SODIUM 139 09/16/2022 POTASSIUM 3.5 09/16/2022 CHLORIDE 101 09/16/2022 CO2VEN 28 09/16/2022 ANIONGAP 13.5 09/16/2022 GLUCOSE 164 (H) 09/16/2022 BUN 21 09/16/2022 CREATININE 0.80 09/16/2022 BCRATIO8 26 (H) 09/16/2022 TOTALPROTEIN 8.1 09/16/2022 ALBUMIN 3.9 09/16/2022 CALCIUM 10.0 09/16/2022 TBIL 0.6 09/16/2022 SGOTAST 20 09/16/2022 SGPTALT 21 09/16/2022 ALKALINEPHO 94 09/16/2022 GFRNA >60 09/16/2022 GFRA >60 09/16/2022 TSH 3.960 07/26/2019 OBJECTIVE Well-nourished, well-developed, pleasant, cooperative 68 y.o. female in no acute distress. Vitals: 01/17/24 1347 BP: (!) 138/98 Pulse: 77 Resp: 18 Temp: 96.8 ??F (36 ??C) TempSrc: Temporal SpO2: 98% Weight: 266 lb (120.7 kg) Height: 5' 1 (1.549 m) Body mass index is 50.26 kg/m??. BP Readings from Last 3 Encounters: 01/17/24 (!) 138/98 11/08/23 148/84 11/02/23 136/68 Wt Readings from Last 3 Encounters: 01/17/24 266 lb (120.7 kg) 11/08/23 263 lb 11.2 oz (119.6 kg) 11/02/23 263 lb (119.3 kg) SKIN: Warm and dry. LUNGS: Clear to auscultation and percussion. HEART:normal rate, regular rhythm,normal S1, S2, no murmurs, rubs, clicks or gallops. ABDOMEN: Bowel sounds are active. No masses. Noorganomegaly, no tenderness. No bruits. EXTREMITIES: No edema. Right hand/arm: finger rom intact. Elbow rom intact. Wrist rom limited due to pain Sensation wnl hand, forearm Radial pulse wnl Tender distal posterior radial head. Tender to palpation distal lateral forearm Finklestein pos Mild swelling area where having pain Thumb rom intact. Mcp joints wnl ASSESSMENT AND PLAN Diagnoses and all orders for this visit: Right wrist pain There are no discontinued medications. No follow-ups on file. After visit summary discussed with patient. Documentation for this visit on 01/17/2024 was completed using a template. I have seen and examined the patient. Everything documented was personally performed at this visit with the necessary additions, deletions and changes made as appropriate. Right wrist pain: unclear cause. Cause of original hematoma? Is on xarelto. Lets do x ray or wrist first. Send to hand specialist? Mri? X ray 11/20/2023 wnl. documented in this encounter Plan of Treatment Upcoming Encounters Date Type Department Care Team (Late st Contact Info) Description 05/17/2024 2:45 PM CHEESE WEIGHER Office Visit [facility] - Endocrinology - [place] [address] [place] [address] Annel Rod MD [address] [facility] [address] [place] [address] documented as of this encounter Visit Diagnoses Diagnosis Right wrist pain- Primary Pain in joint, forearm documented in this encounter Additional Health Concerns Assessment Noted Time PHQ-9 Depression Total Score: 8 01/18/20 23 2:24 PM CDT documented as of this encounter Care Teams Locomotive Engineer Relationship Specialty Start Date End Date Justen Gale MD [address] [facility] [address] [place] [address] PCP - General Family Medicine 10/17/17 David Roberts, CUSTOM APPLICATOR, SUPERVISOR [facility] [address] [place] [address] Nurse Practitioner Advanced Practice Nurse 01/31/22 Annel Rod MD [facility] [address] [address] Consulting Physician Endocrinology 07/01/22 documented as of this encounter
--- OUTSIDE RECORDS SUMMARY | 2024-04-26 02:53 | XMS_ITS | Encounter Summary ---
Author Organization [facility] Address [address] [place] [address] Phone Care Team Providers Care Fiscal Assistant Name Role Phone Justen Gale MD Primary Care Provider [phone] aDvid Roberts APRN, SENIOR ACCOUNT MANAGER Unavailable [phone] Annel Rod MD Unavailable Encounter Details Date Type Department Care Team (Late st Contact Info) Description 11/27/2023 Telephone [facility] - Gastroenterology [facility] #[address] [place] [address] Fabiola Sotomayor APRN, SENIOR ACCOUNT MANAGER [address] [place] [address] Social History Tobacco Use Types Packs/Day Years [...] encounter Miscellaneous Notes * Telephone Encounter - Fabiola Sotomayor APRN, CNP - 11/28/2023 7:31 AM CDT Okay to schedule as a new patient * Telephone Encounter - Rosa Collado - 11/27/2023 3:53 PM CDT Patient has appointment with [facility] in February but wanted to be seen due to having nausea and vomiting. Can you see this patient or does she need to be seen at [facility]? documented in this encounter Plan of Treatment Upcoming Encounters Date Type Department Care Team (Late st Contact Info) Description 05/17/2024 2:45 PM HIDE BUFFER Office Visit [facility] - Endocrinology [facility] [address] [place] [address] Annel Rod MD #2 [facility] [address] [place] [address] documented as of this encounter Visit Diagnoses Not on filedocumented in this encounter Additional Health Concerns Assessment Noted Time PHQ-9 Depression Total Score: 8 01/18/20 23 2:24 PM CDT documented as of this encounter Care Teams Fiscal Assistant Relationship Specialty Start Date End Date Justen Gale MD #2 [facility] [address] [place] [address] PCP - General Family Medicine 10/17/17 David Roberts APRN, NETTA [address] [place] [address] Nurse Practitioner Advanced Practice Nurse 01/31/22 Annel Rod MD #[address] [phone] Consulting Physician Endocrinology 07/01/22 documented as of this encounter
--- OUTSIDE RECORDS SUMMARY | 2024-04-26 02:53 | XMS_ITS | Encounter Summary ---
Author Organization [facility] [employer] Care Team Providers Care Home Health Care Physician Name Role Phone Justen Gale MD Primary Care Provider [phone] David Roberts APRN, [facility] Unavailable [phone] Annel Rod MD Unavailable Encounter Details Date Type Department Care Team (Latest Contact Info) Description 11/02/2023 Travel Social History Tobacco Use Types Packs/Day [...] st Contact Info) Description 05/17/2024 2:45 PM TOOL MARKER Office Visit [facility] - Endocrinology [facility] [address] [place] [phone] Annel Rod MD #[address] [address] documented as of this encounter Visit Diagnoses Not on filedocumented in this encounter Additional Health Concerns Assessment Noted Time PHQ-9 Depression Total Score: 8 01/18/20 23 2:24 PM CDT documented as of this encounter Care Teams Home Health Care Physician Relationship Specialty Start Date End Date Justen Gale MD #[address] [address] PCP - General Family Medicine 10/17/17 David Roberts APRN, NETTA [address] [place] [address] Nurse Practitioner Advanced Practice Nurse 01/31/22 Annel Rod MD #[address] [address] Consulting Physician Endocrinology 07/01/22 documented as of this encounter
--- OUTSIDE RECORDS SUMMARY | 2024-04-26 02:53 | XMS_ITS | Encounter Summary ---
Author Organization [facility] Address [address] [place] [address] Phone Care Team Providers Care Typing Element Machine Operator Name Role Phone Justen Gale MD Primary Care Provider [phone] David Roberts APRN, RIP TAILER Unavailable [phone] Annel Rod MD Unavailable Reason for Referral * Consult, Test & Initiate Treatment (Routine) - Canceled Specialty Diagnoses / Procedures Referred By Elyssa t Referred To Contact Diagnoses Nausea and vomiting, unspecified vomiting type Justen Gale MD #[address] [address] Phone: tel: fax: [facility] - Gastroenterology [facility] [address] [place] [address] Phone: tel: fax: Referral ID Status Reason Start Date Expiration Date V isits Requested Visits Authorized [id number] Canceled 11/16/2023 1 1 Scheduling Instructions Karly is being referred for n/v Please contact patient for scheduling questions or concerns. Encounter Details Date Type Department Care Team ([facility] Contact Info) Description 11/16/2023 Telephone [facility] - Family Medicine - [place] [address] [place] [phone] Justen Gale MD [address] [facility] [address] [address] Social History Tobacco Use Types Packs/Day Years [...] encounter Miscellaneous Notes * Telephone Encounter - Stacy Huang RN - 11/16/2023 3:47 PM CDT New Referral pend for approval Please advise, per Dr. Flores patient will need to be referred to GI department. Dr. Flores has reviewed referral and chart. Current referral will be closed. documented in this encounter Plan of Treatment Upcoming Encounters Date Type Department Care Team (Late Contact Info) Description 05/17/2024 2:45 PM EXERCISE EQUIPMENT REPAIR TECHNICIAN Office Visit [facility] - Endocrinology - [place] [address] [place] [phone] Annel Rod MD [address] [phone] Scheduled Referrals Name Type Priority Associated Diagnoses Order Schedule GASTROENTEROLOGY REFERRAL Outpatient Referral Routine Nausea and vomiting, unspecified vomiting type Expected: 11/16/2023, Expires: 11/15/2024 documented as of this encounter Visit Diagnoses Diagnosis Nausea and vomiting, unspecified vomiting type- Primary documented in this encounter Additional Health Concerns Assessment Noted Time PHQ-9 Depression Total Score: 8 01/18/20 23 2:24 PM CDT documented as of this encounter Care Teams Typing Element Machine Operator Relationship Specialty Start Date End Date Justen Gale MD #2 [facility] [address] [place] [address] PCP - General Family Medicine 10/17/17 David Roberts APRN, NETTA [address] [place] [address] Nurse Practitioner Advanced Practice Nurse 01/31/22 Annel Rod MD #2 [facility] [address] [place] [address] Consulting Physician Endocrinology 07/01/22 documented as of this encounter
--- OUTSIDE RECORDS SUMMARY | 2024-04-26 02:53 | XMS_ITS | Encounter Summary ---
Author Organization [facility] Address [address] [place] [address] Phone Care Team Providers Care Animal Doctor Name Role Phone Gerardo Gale MD Primary Care Provider [phone] David Roberts APRN, AIRCONDITIONING PLANT OPERATOR Unavailable [phone] Annel Rod MD Unavailable Reason for Referral * Consult, Test & Initiate Treatment (Less Than 2 Weeks) - Authorized Specialty Diagnoses / Procedures Referred By Contkristina t Referred To Contact Orthopaedic Surgery Diagnoses Right hand pain Gerardo Gale MD #[address] [address] Phone: tel: fax: [facility] [address] [place] [address] Phone: tel: fax: Referral ID Status Reason Start Date Expiration Date V isits Requested Visits Authorized [id number] Authorized 01/24/2024 4 4 Scheduling Instructions Karly is being referred to Orthopedic or other specialist in patient's insurance network For hand, wrist and forearm pain. . See below for Karly's current medications, allergies [...] times daily., Disp: , Rfl: Misc. Devices [facility], Supply and instructions:, Disp: 1 Each, Rfl: 0 naloxone HCl (Narcan) 4 MG/0.1ML Liquid, as needed, Disp: , Rfl: ondansetron (Zofran) 4 MG Tablet, Take 1 Tablet by mouth every 8 hours as needed for Nausea - 1st line., Disp: 15 Tablet, Rfl: 0 OneTouch Delica Lancets 33G Mis, 1 Lancet by Does not apply route [...] to 59.9 in adult (HCC) Thyroid nodule Reason for Visit * Reason Onset Date Comments information 01/22/2024 Encounter Details Date Type Department Care Team (Late st Contact Info) Description 01/22/2024 Nurse Triage [facility] [address] [place] [address] Gerardo Gale MD #[address] [address] information Social History Tobacco Use Types Packs/Day Years [...] encounter Miscellaneous Notes * Addendum Note - Gerardo Gale MD - 01/24/2024 10:00 AM CDTAddended by: GERARDO GALE on: 01/24/2024 10:00 AM Modules accepted: Orders * Addendum Note - Jaswinder Huang RN - 01/24/2024 9:52 AM CDTAddended by: JASWINDER HUANG on: 01/24/2024 09:52 AM Modules accepted: Orders * Telephone Encounter - Jaswinder Huang RN - 01/24/2024 9:47 AM CDT Referral center called and stated that patient called in and is upset that the referral was placed as a hand surgery Patient would like the referral changed to Orthopedic. She is having hand, wrist and forearm pain and does not know if she need surgery or not. * Telephone Encounter - Larissa Lechuga RN - 01/22/2024 9:01 PM CDT SITUATION (caller perception/concerns): wrist pain/information BACKGROUND (events leading up to call): patient calling stating she has right wrist pain. Patient stated she was seen in the office and asking if any information about seeing a hand specialist was put in for a referral in the chart. History: reviewed in snapshot- HTN, hyperthyroidism, type 2 diabetes, DVT, pulmonary embolism ASSESSMENT: Patient stated she has been having lots of right wrist pain and has been seen at her PCP and waiting for referral. Pain: Present now: yes Length of time present: 2-3 weeks Constant or Intermittent: constant Description of pain/location: 10/31- right wrist pain, with intermittent radiating pain up the arm. RN offered to triage for symptoms patient stated she was just looking for referral information. RECOMMENDATION: advised patient of home care and that the referral was placed for the hand specialist. Patient verbalized understanding. Advised patient to call back with any questions or worsening symptoms. See care advice and disposition for guideline. First positive answer recorded, all responses to prior questions were negative. If symptoms increase, change or if new symptoms develop, call your HCP or call back. Recommendation based on caller information and is not a diagnosis. Verified and reviewed all triage information with caller. Caller verbalized understanding of information given and denies further questions. Teach-back method utilized. Reason for Disposition Question about upcoming scheduled surgery, procedure or test, no triage required, and triager able to answer question Protocols used: Information Only Call - No Triage-A- documented in this encounter Plan of Treatment Upcoming Encounters Date Type Department Care Team (Late st Contact Info) Description 05/17/2024 2:45 PM FITTER ARMAMENT Office Visit [facility] - Endocrinology [facility] #[address] [place] [address] Annel Rod MD #[address] [address] Scheduled Referrals Name Type Priority Associated Diagnoses Order Schedule EXTERNAL ORTHOPEDIC REFERRAL Outpatient Referral Less Than 2 weeks Right hand pain Expected: 01/24/2024, Expires: 01/23/2025 documented as of this encounter Visit Diagnoses Diagnosis Right hand pain- Primary Pain in limb documented in this encounter Additional Health Concerns Assessment Noted Time PHQ-9 Depression Total Score: 8 01/18/20 23 2:24 PM CDT documented as of this encounter Care Teams Animal Doctor Relationship Specialty Start Date End Date Gerardo Gale MD #2 [facility] [address] [place] [address] PCP - General Family Medicine 10/17/17 David Roberts APRN, NETTA #2 [place] [address] Nurse Practitioner Advanced Practice Nurse 01/31/22 Annel Rod MD #[address] [address] Consulting Physician Endocrinology 07/01/22 documented as of this encounter
--- OUTSIDE RECORDS SUMMARY | 2024-04-26 02:53 | XMS_ITS | Encounter Summary ---
Author Organization [facility] Address [address] [place] [address] Phone Care Team Providers Care Goat Herder Name Role Phone Justen Gale MD Primary Care Provider [phone] David Roberts APRN, DIRECTOR EMERGENCY DEPARTMENT Unavailable [phone] Annel Rod MD Unavailable Reason for Visit * Reason Onset Date Comments Hand Swelling 11/17/2023 Encounter Details Date Type Department Care Team (Late st Contact Info) Description 11/17/2023 [facility] [address] [place] [address] Justen Gale MD #[address] [address] Hand Swelling Social History Tobacco Use Types Packs/Day Years [...] encounter Miscellaneous Notes * Telephone Encounter - Sumaya Reed RN - 11/17/2023 10:39 AM CDT SITUATION: hand pain and swelling BACKGROUND: patient states has a bruise on her hand and went [facility] and advised just a bruise it has been at least days per patient and looks like the swelling is getting worse ASSESSMENT: Symptom Description / Location: right hand is bruised and swollen Fingers are swelling Patient is blood thinner and pain medication Patient states she does get pain that radiates up into her elbow at times Pain (0-10): with use and radiates up the arm 4/10 Temp: Denies chills or fever RECOMMENDATION: See care advice and disposition for Guideline To be seen in office, directed to Prompt care/Urgent care due to no office availability. Caller verbalized understanding and agreeable to recommendations First positive answer recorded, all responses to prior questions were negative. If symptoms increase, change or if new symptoms develop, call your HCP or call back. Recommendations were based on caller information and is not a diagnosis. Verified and reviewed all triage information with caller. Reason for Disposition MODERATE hand swelling (e.g., visible swelling of hand and fingers; pitting edema) Protocols used: Hand Omuuvtda-H-WY documented in this encounter Plan of Treatment Upcoming Encounters Date Type Department Care Team (Late st Contact Info) Description 05/17/2024 2:45 PM MEDIA SALES REPRESENTATIVE Office Visit [facility] - Endocrinology - [place] [address] [place] [id number] Annel Rod MD #[address] [phone] documented as of this encounter Visit Diagnoses Not on filedocumented in this encounter Additional Health Concerns Assessment Noted Time PHQ-9 Depression Total Score: 8 01/18/20 23 2:24 PM CDT documented as of this encounter Care Teams Goat Herder Relationship Specialty Start Date End Date Justen Gale MD #2 [facility] [address] [place] [address] PCP - General Family Medicine 10/17/17 David Roberts APRN, DIRECTOR EMERGENCY DEPARTMENT #2 [place] [address] Nurse Practitioner Advanced Practice Nurse 01/31/22 Annel Rod MD #2 [facility] [address] [place] [address] Consulting Physician Endocrinology 07/01/22 documented as of this encounter
--- OUTSIDE RECORDS SUMMARY | 2024-04-26 02:53 | XMS_ITS | Encounter Summary ---
Author Organization [facility] Address [address] [place] [address] Phone Care Team Providers Care Trimmer Climber Name Role Phone Justen Gale MD Primary Care Provider David Roberts APRN, FARE COLLECTOR Unavailable [phone] Annel Rod MD Unavailable Reason for Visit * Reason Onset Date Comments High Blood Sugar 12/05/2023 Encounter Details Date Type Department Care Team (Late st Contact Info) Description 12/05/2023 Nurse Triage [facility] [address] [place] [address] Justen Gale MD #[address] [address] High Blood Sugar Social History Tobacco Use Types Packs/Day Years [...] encounter Miscellaneous Notes * Telephone Encounter - Larissa Lechuga RN - 12/05/2023 12:50 AM CDT SITUATION (caller perception/concerns): high blood sugar BACKGROUND (events leading up to call): patient had covid and was seen in the ED and was given somesteroids and a uti. . History: reviewed in snapshot- HTN, diabetes, diverticulosis, restless legs, anxiety, depression, breast cancer, mastectomy ASSESSMENT: Onset: now Symptoms: patient denies any difficulty to awaken or acting confused. Patient stated she can stand up and walk around. Patient stated she did vomit, patient stated she has a dry mouth, and is having lightheadedness. Patient stated her urine is dark in color. Patient stated her blood sugar is reading error which she is stating is above 400 per her monitor. Other symptoms: see above Treatment with response: patient stated she took humalog 28 units, plus 10 more units per her sliding scale around 3.5 hours ago. RECOMMENDATION: advised patient to be seen in the ED. Patient agreed and verbalized understanding. Patient stated she will go to [facility]. Advised patient to call back with any [...] questions. Teach-back method utilized. Reason for Disposition [1] Vomiting AND [2] signs of dehydration (e.g., very dry mouth, lightheaded, dark urine) Protocols used: Diabetes - High Blood Sugar-A- documented in this encounter Plan of Treatment Upcoming Encounters Date Type Department Care Team (Late st Contact Info) Description 05/17/2024 2:45 PM AMBULANCE ATTENDANT Office Visit [facility] - Endocrin[facility] #[address] [place] [address] Annel Rod MD #[address] [facility] [address] [place] [address] documented as of this encounter Visit Diagnoses Not on filedocumented in this encounter Additional Health Concerns Assessment Noted Time PHQ-9 Depression Total Score: 8 01/18/20 23 2:24 PM CDT documented as of this encounter Care Teams Trimmer Climber Relationship Specialty Start Date End Date Justen Gale MD #[address] [facility] [address] [place] [address] PCP - General Family Medicine 10/17/17 David Roberts APRN, FARE COLLECTOR #[address] [place] [address] Nurse Practitioner Advanced Practice Nurse 01/31/22 Annel Rod MD #[address] [address] Consulting Physician Endocrinology 07/01/22 documented as of this encounter
--- OUTSIDE RECORDS SUMMARY | 2024-04-26 02:53 | XMS_ITS | Encounter Summary ---
Author Organization [facility] Address [address] [place] [address] Phone Care Team Providers Care Rheumatology Nurse Name Role Phone Justen Gale MD Primary Care Provider [phone] David Roberts APRN, C4 PLANNER Unavailable [phone] Annel Rod MD Unavailable Reason for Visit * Auth/Cert (Routine) Specialty Diagnoses / Procedures Referred By Elyssa benavides Referred To Contact Diagnoses THYROID NODULE Procedures PRE / POST CARE FOR PROCEDURAL AREA Referral ID Status Reason Start Date Expiration Date Visits Re quested Visits Authorized [id number] 1 1 Encounter Details Date Type Department Care Team (Late st Contact Info) Description 11/02/2023 10:00 AM CDT - 11/02/2023 10:30 AM CDT [facility] [address] [place] [id number] Provider, Not On File [place] PRE / POST CARE FOR PROCEDURAL AREA-LEFT THYROID BIOPSY Surgery Details Date/Time Status Location OR Service Patient Class Case Class Case Type Trauma Case? 11/02/2023 10:00 AM Posted [facility] IN[facility] Amb[facility] Surgery Elective /Schedul ed Panel 1 Procedure LRB Anes Op Region Wound Class Comments PRE / POST CARE FOR PROCEDUR AL AREA-LEFT THYROID BIOPSY Left Local Surgeon Surgeon Role Service Panel Provider, Not On File Primary Radiology 1 documented in this encounter Social History [...] Sign Reading Time Taken Comments Blood Pressure 146/84 11/02/2023 9:49 AM CDT Pulse 64 11/02/2023 9:49 AM CDT Temperature 36.7 ??C (98 ??F) 11/02/2023 9:49 AM CDT Respiratory Rate 16 11/02/2023 9:49 AM CDT Oxygen Saturation 98% 11/02/2023 9:49 AM CDT Inhaled Oxygen Concentration - - Weight 119.3 kg (263 lb) 11/02/2023 9:49 AM CDT Height 154.9 cm (5' 1 ) 11/02/2023 9:49 AM CDT Body Mass Index 49.69 11/02/2023 9:49 AM CDT documented in this encounter Medications [...] 1 g by mouth 2 times daily. Mis. Devices MiscIndications: LUL (obstructive sleep apnea) Supply and instructions: 1 Each 09/09/2020 naloxone HCl (Narcan) 4 MG/0.1ML Liquid as needed 05/13/2021 OneTouch Delica Lancets 33G [place] 1 Lancet by Does not apply route [...] Take 500 mg by mouth. 4 nystatin 537272 UNIT/GM Powder 11/09/2021 4 ondansetron (Zofran) 4 MG Tablet Take 1 Tablet by mouth every 8 hours as needed for Nausea - 1st line. 15 Tablet 04/13/2023 4 rOPINIROLE (REQUIP) 5 MG Tablet TAKE 1 TABLET BY MOUTH EVERY NIGHT 90 Tablet 2 07/06/2023 4 documented as of this encounter Miscellaneous Notes * Plan of Care - Damon Jaam RN - 11/02/2023 11:19 AM CDT Problem: Adult Inpatient Plan of Care Goal: Plan of Care Review Outcome: Outcome Achieved Flowsheets Taken 11/02/2023 1118 by DAMON Outcome Evaluation: Ready for discharge Taken 11/02/2023 0940 by MERRY Plan of Care Reviewed With: patient family Progress: progress toward functional goals as expected Today's Goal: to discharge home Does the patient need assistance with discharge and/or transitioning to the next level of care?: No, no needs anticipated Goal: Optimal Comfort and Wellbeing Outcome: Outcome Achieved Goal: Readiness for Transition of Care Outcome: Outcome Achieved * Interdisciplinary - Damon Jama RN - 11/02/2023 11:15 AM CDT Bandaid remains dry and intact - discharge instructions given to patient with understanding - discharged per wheelchair to right side of vehicle * Plan of Care - Merry Dickey RN - 11/02/2023 9:41 AM CDT Problem: Adult Inpatient Plan of Care Goal: Plan of Care Review Outcome: Ongoing (see interventions/notes) Flowsheets (Taken 11/02/2023939) Plan of Care Reviewed With: patient family Progress: progress toward functional goals as expected Today's Goal: to discharge home Outcome Evaluation: ready for or Does the patient need assistance with discharge and/or transitioning to the next level of care?: No, no needs anticipated Goal: Optimal Comfort and Wellbeing Outcome: Ongoing (see interventions/notes) Intervention: Provide Person-Centered Care Flowsheets (Taken 11/02/2023939) Trust Relationship/Rapport: care explained choices provided Goal: Readiness for Transition of Care Outcome: Ongoing (see interventions/notes) Intervention: Mutually Develop Transition Plan Flowsheets (Taken 11/02/2023939) Readmission Within the Last 30 Days: no previous admission in last 30 days documented in this encounter Plan of Treatment Upcoming Encounters Date Type Department Care Team (Late st Contact Info) Description 05/17/2024 2:45 PM FACIAL OPERATOR Office Visit [facility] - Endocr[facility] #2 [place] [address] Annel Rod MD #[address] [address] documented as of this encounter Procedures Procedure Name Priority Date/Time Associated Diagnosis Comments PRE / POST CARE FOR PROCEDURAL AREA 11/02/2023 10:00 AM CDT THYROID NODULE documented in this encounter Visit Diagnoses Not on filedocumented in this encounter Additional Health Concerns Assessment Noted Time PHQ-9 Depression Total Score: 8 01/18/20 23 2:24 PM CDT documented as of this encounter Care Teams Rheumatology Nurse Relationship Specialty Start Date End Date Justen Gale MD #2 [facility] [address] [place] [address] PCP - General Family Medicine 10/17/17 David Roberts, SERVICE DIRECTOR, C4 PLANNER #2 [place] [address] Nurse Practitioner Advanced Practice Nurse 01/31/22 Annel Rod MD [address] [address] Consulting Physician Endocrinology 07/01/22 documented as of this encounter
--- OUTSIDE RECORDS SUMMARY | 2024-04-26 02:53 | XMS_ITS | Encounter Summary ---
Author Organization [facility] Address [address] [place] [address] Phone Care Team Providers Care Associate Professor Of Forestry Name Role Phone Justen Gale MD Primary Care Provider [phone] David Roberts APRN, FIXED INCOME TRADING VICE PRESIDENT Unavailable [phone] Annel Rod MD Unavailable Reason for Visit * Reason Onset Date Comments Appointment 01/15/2024 Encounter Details Date Type Department Care Team (Late st Contact Info) Description 01/15/2024 Telephone [facility] #[address] [place] [address] Justen Gale MD #[address] [address] Appointment Social History Tobacco Use Types Packs/Day [...] encounter Miscellaneous Notes * Telephone Encounter - Diana Munoz RN - 01/15/2024 6:30 PM CDT Situation: Appointment Background: Patient following up on appointment request for this week for wrist pain. Per provider notes below, ok to use CC block 1400 (except for 01/16/24). Assessment: n/a Recommendation: Appointment scheduled and patient verbalized understanding. All Patient Appointments Provider Department Dept Phone 01/17/2024 2:00 PM Justen Gale [facility] - Family Medicine [facility] [phone] * Telephone Encounter - Justen Gale MD - 01/15/2024 11:33 AM CDT Okay to use 1400. Do not take my Monday block however or block documented in this encounter Plan of Treatment Upcoming Encounters Date Type Department Care Team (Late st Contact Info) Description 05/17/2024 2:45 PM LONGWALL FOREMAN Office Visit [facility] - Endocrinology [facility] #[address] [place] [address] Annel Rod MD #[address] [facility] [address] [place] [address] documented as of this encounter Visit Diagnoses Not on filedocumented in this encounter Additional Health Concerns Assessment Noted Time PHQ-9 Depression Total Score: 8 01/18/20 2:24 PM CDT documented as of this encounter Care Teams Associate Professor Of Forestry Relationship Specialty Start Date End Date Justen Gale MD #[address] [facility] [address] [place] [address] PCP - General Family Medicine 10/17/17 David Roberts APRN, FIXED INCOME TRADING VICE PRESIDENT #[address] [place] [address] Nurse Practitioner Advanced Practice Nurse 01/31/22 Annel Rod MD #[address] [address] Consulting Physician Endocrinology 07/01/22 documented as of this encounter
--- OUTSIDE RECORDS SUMMARY | 2024-04-26 02:53 | XMS_ITS | Encounter Summary ---
Author Organization [facility] Address [address] [address] Phone Care Team Providers Care Residential Sales Associate Name Role Phone Justen Gale MD Primary Care Provider [phone] David Roberts APRN, LIQUOR COMMISSIONER Unavailable [phone] Annel Rod MD Unavailable Reason for Visit * Reason Onset Date Comments Advice Only 12/04/2023 Breathing Problem 12/04/2023 Encounter Details Date Type Department Care Team (Late st Contact Info) Description 12/04/2023 Nurse Triage [facility] [address] [place] [address] Justen Gale MD #[address] [address] Advice Only; Breathing Problem Social History Tobacco Use Types Packs/Day Years [...] encounter Miscellaneous Notes * Telephone Encounter - Lizzy Umana RN - 12/04/2023 1:21 PM CDT SITUATION: SOB and elevated BS BACKGROUND: started one week ago ASSESSMENT: Symptom Description / Location: Was seen at urgent care on 11/26 for SOB, weakness, nausea, nasal congestion, fatigue and testing WNL Was seen on 11/27 at ED and was positive for covid And was also dx with uti. Was given augmentin for uti Has SOB last noc She is diabetic and her BS has been elevated and twice today kalia was not able to read BS as was too high She believes it reads up to 400 BS now is 375 and she had breakfast around 10:30 am and then took insulin BS fasting today 375 States she has not been eating due to not to feeling well For breakfast had one piece of toast, yogurt and banana Having some SOB when sitting down Fatigue Brain fog Pain (0-10): none Temp: none Treatment / Response: tylenol Advised she should go to ED now and she agreed and has a ride RECOMMENDATION: See care advice and disposition for Guideline First positive answer recorded, all responses to prior questions were negative. If symptoms increase, change or if new symptoms develop, call your HCP or call back. Recommendations were based on caller information and is not a diagnosis. Verified and reviewed all triage information with caller. Reason for Disposition MODERATE difficulty breathing (e.g., speaks in phrases, SOB even at rest, pulse 100-120) of new-onset or worse than normal Protocols used: Breathing Nhzlftsxvn-A-IZ * Telephone Encounter - Sarina Adams - 12/04/2023 1:19 PM CDT Symptoms: COVID-19 Suspected, Urination Pain, High Blood Sugar - Caller Reports Outcome: Warm transfer to an emergent RN NOW! Reason: Known blood sugar above 300 The caller accepted this outcome documented in this encounter Plan of Treatment Upcoming Encounters Date Type Department Care Team (Late st Contact Info) Description 05/17/2024 2:45 PM WASTEWATER PLANT OPERATOR Office Visit [facility] - Endocrinology [facility] #2 [place] [address] Annel Rod MD #[address] [address] documented as of this encounter Visit Diagnoses Not on filedocumented in this encounter Additional Health Concerns Assessment Noted Time PHQ-9 Depression Total Score: 8 01/18/20 23 2:24 PM CDT documented as of this encounter Care Teams Residential Sales Associate Relationship Specialty Start Date End Date Justen Gale MD #[address] [address] PCP - General Family Medicine 10/17/17 David Roberts APRN, LIQUOR COMMISSIONER #[address] [place] [address] Nurse Practitioner Advanced Practice Nurse 01/31/22 Annel Rod MD #[address] [address] Consulting Physician Endocrinology 07/01/22 documented as of this encounter
--- OUTSIDE RECORDS SUMMARY | 2024-04-26 02:53 | XMS_ITS | Encounter Summary ---
Author Organization [facility] Address [address] [place] [address] Phone Care Team Providers Care Software Asset Manager Name Role Phone Justen Gale MD Primary Care Provider [phone] David Roberts APRN, DIRECTOR OF SEARCH ENGINE MARKETING Unavailable [phone] Annel Rod MD Unavailable Encounter Details Date Type Department Care Team (Late st Contact Info) Description 11/08/2023 1:20 PM CDT Lab [facility] #2 [facility] [address] [place] [id number] Lab[facility]ardo Lab/Ancillary Nausea and vomiting, unspecified vomiting type Discharge Disposition: Discharged to home or Selfcare [...] as of this encounter Progress Notes * Billie Quigley - 11/08/2023 1:20 PM CDT Karly presents for lab draw per order of dr gale dated [id number]. Specimen collected from right antecubital without incident. [facility] documented in this encounter Plan of Treatment Upcoming Encounters Date Type Department Care Team (Late st Contact Info) Description 05/17/2024 2:45 PM HOT TOP LINER Office Visit [facility] - Endocrinology - [place] #2 [place] [address] Annel Rod MD #[address] [phone] documented as of this encounter Procedures Procedure Name Priority Date/Time Associated Diagnosis Comments CELIAC ANTIBODY PANEL Routine 11/08/2023 1:12 PM CDT Nausea and vomiting, unspecified vomiting type IMMUNOGLOBULIN A (IGA) - CELIAC Routine 11/08/2023 1:12 PM CDT Nausea and vomiting, unspecified vomiting type GLIADIN IGA ANTIBODY - CELIAC Routine 11/08/2023 1:12 PM CDT Nausea and vomiting, unspecified vomiting type TISSUE TRANSGLUTAMINASE IGA - CELIAC Routine 11/08/2023 1:12 PM CDT Nausea and vomiting, unspecified vomiting type documented in this encounter Results * (ABNORMAL) IMMUNOGLOBULIN A (IGA) - CELIAC (11/08/2023 1:12 PM CDT) IMMUNOGLOBULIN A 555(H) 69 - 517 mg/dL 11/08/2023 9:42 PM CDT [facility] Blood Venipuncture / Unknown 11/08/2023 1:12 PM CDT 11/08/2023 1:12 PM CDT us Justen Gale MD IMMUNOLOGY ORDERABLES Final R esult Performing Organization Address City/[facility]/ZIP Co de Phone Number [facility] [address] [place] [address], [place] * GLIADIN IGA ANTIBODY - CELIAC (11/08/2023 1:12 PM CDT) DEAMIDATED GLIADIN IGA 0.4 <15.0 U/mL 11/08/2023 10:07 PM CDT [facility] Blood Venipuncture / Unknown 11/08/2023 1:12 PM CDT 11/08/2023 1:12 PM CDT Narrative [facility] - 11/08/2023 10:07 PM CDT Antibody testing was performed by multiplex flow immunoassay on the BioPlex platform. us Justen Gale MD IMMUNOLOGY ORDERABLES Final R esult Performing Organization Address [facility]/ZIP Co de Phone Number [facility] [address] [place] [address], [place] * TISSUE TRANSGLUTAMINASE IGA - CELIAC (11/08/2023 1:12 PM CDT) TTG IGA <0.5 <15.0 U/mL 11/08/2023 10:07 PM CDT [facility] Blood Venipuncture / Unknown 11/08/2023 1:12 PM CDT 11/08/2023 1:12 PM CDT Narrative [facility] - 11/08/2023 10:07 PM CDT Antibody testing was performed by multiplex flow immunoassay on the BioPlex platform. us Justen Gale MD IMMUNOLOGY ORDERABLES Final R esult Performing Organization Address City/[facility]/ZIP Co de Phone Number [facility] [address] [place] [address], [place] documented in this encounter Visit Diagnoses Diagnosis Nausea and vomiting, unspecified vomiting type documented in this encounter Additional Health Concerns Assessment Noted Time PHQ-9 Depression Total Score: 8 01/18/20 23 2:24 PM CDT documented as of this encounter Care Teams Software Asset Manager Relationship Specialty Start Date End Date Justen Gale MD #2 [facility] [address] [place] [address] PCP - General Family Medicine 10/17/17 David Roberts, FIRE POT OPERATOR, DIRECTOR OF SEARCH ENGINE MARKETING #2 [place] [address] Nurse Practitioner Advanced Practice Nurse 01/31/22 Annel Rod MD #[address] [address] Consulting Physician Endocrinology 07/01/22 documented as of this encounter
--- OUTSIDE RECORDS SUMMARY | 2024-04-26 02:53 | XMS_ITS | Encounter Summary ---
Author Organization [facility] Address [address] [place] [address] Phone Care Team Providers Care Rejogger Name Role Phone Justen Gale MD Primary Care Provider [phone] David Roberts APRN, PIPE CLEANING MACHINE OPERATOR Unavailable [phone] Annel Rod MD Unavailable Reason for Visit * Reason Comments Medication Refill Encounter Details Date Type Department Care Team (Late st Contact Info) Description 02/21/2024 [facility]ill [facility] - [place] #2 [place] [address] Annel Rod MD #[address] [address] Medication Refill Social History Tobacco Use Types Packs/Day Years [...] Telephone Encounter - Annel Rod MD - 02/21/2024 8:20 AM CDT Rx sent * Telephone Encounter - Jennifer Wang, RN - 02/21/2024 8:12 AM CDT Requested Prescriptions Pending Prescriptions Disp Refills Lantus SoloStar 100 UNIT/ML Solution Pen-injector [Pharmacy Med Name: LANTUS SOLOSTAR PEN INJ 3ML] 45 mL 1 Sig: INJECT 40 UNITS UNDER SKIN EVERY MORNING Next appt: 03/27/2024 documented in this encounter Plan of Treatment Upcoming Encounters Date Type Department Care Team (Late st Contact Info) Description 05/17/2024 2:45 PM SEWING SUPERVISOR Office Visit [facility]2 [place] [address] Annel Rod MD #2 [facility] [address] [place] [address] documented as of this encounter Visit Diagnoses Not on filedocumented in this encounter Additional Health Concerns Assessment Noted Time PHQ-9 Depression Total Score: 8 01/18/20 23 2:24 PM CDT documented as of this encounter Care Teams Rejogger Relationship Specialty Start Date End Date Justen Gale MD #2 [facility] [address] [place] [address] PCP - General Family Medicine 10/17/17 David Roberts, HOUSE SUPERVISOR, PIPE CLEANING MACHINE OPERATOR #2 [place] [address] Nurse Practitioner Advanced Practice Nurse 01/31/22 Annel Rod MD #[address] [address] Consulting Physician Endocrinology 07/01/22 documented as of this encounter
--- OUTSIDE RECORDS SUMMARY | 2024-04-26 02:53 | XMS_ITS | Encounter Summary ---
Author Organization [facility] Address [address] [place] [address] Phone Care Team Providers Care Regional Sales Leader Name Role Phone Justen Gale MD Primary Care Provider [phone] David Roberts APRN, ELEMENTARY SCHOOL MUSIC TEACHER Unavailable [phone] Annel Rod MD Unavailable Reason for Visit * Reason Onset Date Comments Fall 01/28/2024 ED Follow-up 01/28/2024 Encounter Details Date Type Department Care Team (Late st Contact Info) Description 01/28/2024 Nurse Triage [facility] [address] [place] [address] Justen Gale MD #[address] [address] Fall; ED Follow-up Social History Tobacco Use Types Packs/Day [...] encounter Miscellaneous Notes * Telephone Encounter - Leah Garcia RN - 01/30/2024 10:06 PM CDT Reason for Disposition ??? [1] MODERATE weakness (i.e., interferes with work, school, normal activities) AND [2] new-onsetor getting worse ??? [1] Recent medical visit within 24 hours AND [2] condition or symptoms worse Protocols used: Recent Medical Visit for Injury Follow-up Call-A-AH, Falls and [id number]-G-QG * Telephone Encounter - Leah Garcia RN - 01/30/2024 9:47 PM CDT SITUATION: Emergency Department follow up BACKGROUND: Caller contacting PCP office. Patient states she did go to Emergency Department at [facility] and after waiting approximately 7 hours she left without completing the visit or seeing a provider. Patient did have an xray of wrist and CT scan of Lumbar spine done an no fractures were noted. Per chart review, see previous triage note regarding patient fall on 01/28/24. ASSESSMENT: Symptom Description / Location: Patient states she felt all right on 01/29/24 but on 01/30/24 the pain seems to be worse. Patient states she hurts everywhere arms. Legs, back, shoulders and patient states she just doesn't feel well related to the pain. Patient states she has moderate weakness that is new after the fall and she can barely walk but she can walk unassisted. Pain: 10/01-10/31 Fever: Denies fever. Treatment / Response: Providence 10-325 milligram last dose taken on 01/30/24 approximately 0 and patient takes this regularly for her chronic back pain with some relief. Medication, allergies, and pharmacy reviewed. RECOMMENDATION: Care advice given and patient agrees to be seen in Emergency Department for evaluation at this time. Discussed utilizing [employer] to: schedule appointments - See care advice and disposition for Guideline. First positive answer recorded, all responses to prior questions were negative. If symptoms increase, change or if new symptoms develop, call your health care provider or call back. Recommendations were based on caller information and is not a diagnosis. Verified and reviewed all triage information with caller. Reason for Disposition [1] Recent medical visit within 24 hours AND [2] condition or symptoms worse [1] MODERATE weakness (i.e., interferes with work, school, normal activities) AND [2] new-onset or getting worse Protocols used: Recent Medical Visit for Injury Follow-up Call-A-AH, Falls and [id number] * Telephone Encounter - Jennifer Husain RN - 01/28/2024 4:17 PM CDT SITUATION: Fall to the floor, on Xarelto BACKGROUND: Caller contacting PCP office. Fall in living room on hard wood floor, toe caught carpet Landed on left side and braced with hands Chronic right wrist and forearm pain ASSESSMENT: Symptom Description / Location: Xarelto Fall at 1430 today Knot on wrist looks bigger and starting to look dark like a bruise Mild swelling to right wrist Increased numbness to right hand/fingers Pain: Right wrist achy pain 5-6/10 with intermittent radation going up arm, unable to flex/bend wrist Lower back pain (chronic but worse since fall) left lower back and hip constant aching 5/10 pain Treatment / Response: Hydrocodone- acetaminophen with no relief. usually helps with the chronic pain but not helping now at all RECOMMENDATION: Caller agreeable to disposition: go to ED now. Care advice provided per triage guideline. Caller [...] triage information with caller. Reason for Disposition Followed an arm injury [1] New numbness (loss of sensation) or weakness of hand or finger(s) AND [2] present now Protocols used: Arm Pain-A-AH, Arm Injury-A-AH documented in this encounter Plan of Treatment Upcoming Encounters Date Type Department Care Team (Late st Contact Info) Description 05/17/2024 2:45 PM DEPOT MANAGER Office Visit [facility] - Endocrinology [facility] #2 [place] [address] Annel Rdo MD #[address] [address] documented as of this encounter Visit Diagnoses Not on filedocumented in this encounter Additional Health Concerns Assessment Noted Time PHQ-9 Depression Total Score: 8 01/18/20 23 2:24 PM CDT documented as of this encounter Care Teams Regional Sales Leader Relationship Specialty Start Date End Date Justen Gale MD #2 [facility] [address] [place] [address] PCP - General Family Medicine 10/17/17 David Roberts APRN, NETTA #2 [facility] [place] [address] Nurse Practitioner Advanced Practice Nurse 01/31/22 Annel Rod MD #[address] [address] Consulting Physician Endocrinology 07/01/22 documented as of this encounter
--- OUTSIDE RECORDS SUMMARY | 2024-04-26 02:53 | XMS_ITS | Encounter Summary ---
Author Organization [facility] Address [address] [place] [address] Phone Care Team Providers Care Fruit Culler Name Role Phone Justen Gale MD Primary Care Provider [phone] David Roberts APRN, GAS DERRICK OPERATOR Unavailable [phone] Annel Rod MD Unavailable Reason for Visit * Reason Onset Date Comments Results 11/13/2023 Encounter Details Date Type Department Care Team (Late st Contact Info) Description 11/13/2023 Telephone [facility] #2 [facility] [address] Justen Gale MD #[address] [address] Results Social History Tobacco Use Types Packs/Day [...] Telephone Encounter - Stacy Huang RN - 11/14/2023 3:41 PM CDT Sent message to patient through my chart. * Telephone Encounter - Justen Gale MD - 11/13/2023 11:07 AM CDT Please call. Testing for celiac was normal I will call in medicine to help with the abd pain. If no better in next 1-2 weeks, call or make ov. Call sooner if gets worse. documented in this encounter Plan of Treatment Upcoming Encounters Date Type Department Care Team (Late st Contact Info) Description 05/17/2024 2:45 PM SALES REPRESENTATIVE SUPERVISOR Office Visit [facility] - Endocrinology [facility] #2 [place] [address] Annel Rod MD #[address] [address] documented as of this encounter Visit Diagnoses Not on filedocumented in this encounter Additional Health Concerns Assessment Noted Time PHQ-9 Depression Total Score: 8 01/18/20 23 2:24 PM CDT documented as of this encounter Care Teams Fruit Culler Relationship Specialty Start Date End Date Justen Gale MD #2 [facility] [address] [place] [address] PCP - General Family Medicine 10/17/17 David Roberts APRN, GAS DERRICK OPERATOR #2 [place] [address] Nurse Practitioner Advanced Practice Nurse 01/31/22 Annel Rod MD #[address] [address] Consulting Physician Endocrinology 07/01/22 documented as of this encounter
--- OUTSIDE RECORDS SUMMARY | 2024-04-26 02:53 | XMS_ITS | Encounter Summary ---
Author Organization [facility] Address [address] [place] [address] Phone Care Team Providers Care Dryerman/Woman Name Role Phone Justen Gale MD Primary Care Provider [phone] David Roberts APRN, TALENT MANAGEMENT MANAGER Unavailable [phone] Annel Rod MD Unavailable Reason for Visit * Reason Onset Date Comments Advice Only 11/21/2023 Encounter Details Date Type Department Care Team (Late st Contact Info) Description 11/21/2023 Telephone [facility] [address] [place] [address] Justen Gale MD #[address] [address] Advice Only Social History Tobacco Use Types [...] encounter Miscellaneous Notes * Telephone Encounter - Christianne Gonzalez - 11/21/2023 3:17 PM CDT RFC: Alejandra from [facility] is calling to state that patient is listed as being a diabteic but is not on a statin. Please call Alejandra (relationship to patient n/a) back regarding above referenced patient. Patient's Provider is Justen Gale MD . documented in this encounter Plan of Treatment Upcoming Encounters Date Type Department Care Team (Late st Contact Info) Description 05/17/2024 2:45 PM DIRECTOR OF ELEMENTARY EDUCATION Office Visit [facility] - Endocrinology - [place] #2 [place] [address] Annel Rod MD #[address] [address] documented as of this encounter Visit Diagnoses Not on filedocumented in this encounter Additional Health Concerns Assessment Noted Time PHQ-9 Depression Total Score: 8 01/18/20 23 2:24 PM CDT documented as of this encounter Care Teams Dryerman/Woman Relationship Specialty Start Date End Date Justen Gale MD #2 [facility] [address] [place] [address] PCP - General Family Medicine 10/17/17 David Roberts APRN, TALENT MANAGEMENT MANAGER #2 [place] [address] Nurse Practitioner Advanced Practice Nurse 01/31/22 Annel Rod MD #[address] [place] [address] Consulting Physician Endocrinology 07/01/22 documented as of this encounter
--- OUTSIDE RECORDS SUMMARY | 2024-04-26 02:53 | XMS_ITS | Encounter Summary ---
Author Organization [facility] Address [address] [place] [address] Phone Care Team Providers Care Server Cashier Name Role Phone Justen Gale MD Primary Care Provider [phone] David Roberts APRN, FILLER IN Unavailable [phone] Annel Rod MD Unavailable Reason for Visit * Reason Onset Date Comments Hand Pain 11/23/2023 Encounter Details Date Type Department Care Team (Late st Contact Info) Description [facility]/23/2023 [facility] [address] [place] [address] Justen Gale MD #[address] [address] Hand Pain Social History Tobacco Use Types Packs/Day [...] encounter Miscellaneous Notes * Telephone Encounter - Anton Teran RN - 11/23/2023 1:22 PM CDT Situation: (Reason for call) Right hand pain Background: (History) Hematoma discovered on right hand on 11/13 or 11/14 - cause unknown. Patient was working outside on the deck the day before the onset of symptoms. Patient was seen in the EMERGENCY DEPARTMENT a couple days ago and urgent care. Patient reported that no fractures of the hand or wrist were found on the radiograph. Patient has been applying heat and ice and wrapping with an sara wrap at different times of the day. Disp Refills Start End rivaroxaban (XARELTO) 20 MG Tablet -- -- -- Sig - Route: Take 20 mg by mouth daily. - Oral Class: Historical Med Assessment: Hurts to straighten fingers. Pain is experienced on the back side of the hand. Bruisingis present to the back side of the hand. Rate of pain is 7/10 intermittently although pain is not always present although remains stiff. Patient also reported that her fingers feel numb. Allergies, Medications, and Pharmacy, verified in EMR. Reason for Disposition SEVERE pain (e.g., excruciating, unable to use hand at all) Protocols used: Hand and Wrist Pain-A-OH Recommendation: (Disposition) Go to office now. Caller agreeable, verbalizes understanding/reasoning of advice/recommendations. Assistive Services and patient address verified in EMR. See care advice and disposition for Guideline First positive answer recorded, all responses to prior questions were negative. If symptoms increase, change or if new symptoms develop, call your HCP or call back. Recommendations were based on caller information and is not a diagnosis. Verified and reviewed all triage information with caller. All Patient Appointments Provider Department Dept Phone 11/23/2023 3:20 PM Lu Marte [facility] [phone] * Telephone Encounter - Antoni Ba - 11/23/2023 1:15 PM CDT Symptom: Bruises - From Injury Outcome: Transfer to psych therapist queue Reason: Severe pain now The caller accepted this outcome documented in this encounter Plan of Treatment Upcoming Encounters Date Type Department Care Team (Late st Contact Info) Description 05/17/2024 2:45 PM STAGING TECHNICIAN Office Visit [facility] #2 [place] [address] Annel Rod MD #[address] [address] documented as of this encounter Visit Diagnoses Not on filedocumented in this encounter Additional Health Concerns Assessment Noted Time PHQ-9 Depression Total Score: 8 01/18/20 23 2:24 PM CDT documented as of this encounter Care Teams Server Cashier Relationship Specialty Start Date End Date Justen Gale MD #[address] [address] PCP - General Family Medicine 10/17/17 David Roberts APRN, FILLER IN #2 [place] [address] Nurse Practitioner Advanced Practice Nurse 01/31/22 Annel Rod MD #[address] [address] Consulting Physician Endocrinology 07/01/22 documented as of this encounter
--- OUTSIDE RECORDS SUMMARY | 2024-04-26 02:53 | XMS_ITS | Encounter Summary ---
Author Organization [facility] Address [address] [place] [address] Phone Care Team Providers Care Hand Profiler Name Role Phone Justen Gale MD Primary Care Provider [phone] David Roberts APRN, MOLD PRESSER Unavailable [phone] Annel Rod MD Unavailable Reason for Visit * Reason Onset Date Comments Leg Swelling 12/19/2023 Encounter Details Date Type Department Care Team (Late st Contact Info) Description 12/19/2023 [facility] [address] [place] [address] Justen Gale MD #[address] [address] Leg Swelling Social History Tobacco Use Types Packs/Day [...] Telephone Encounter - Leah Garcia RN - 12/19/2023 10:40 PM CDT SITUATION: leg swelling BACKGROUND: the symptoms started in the last couple days . ASSESSMENT: Symptom Description / Location: patient states she has bilateral lower leg that is below the knees and starts approximately prison down the calves and ankle swelling that does down to top of feet with the left being worse than the right side for all the swollen areas and patient states they are not huge but they are puffy . Patient states she did notices her tennis shoes were tight more than normal. Patient states there is a little redness around the left ankle on the outside of ankle and the redness is larger than two inches in size and the the redness is also noted on back of the foot but doesnot feel warm to the touch. Pain (0-10): denies pain the legs/ankles or feet. Temp: denies fevers Treatment / Response: nothing. RECOMMENDATION: See care advice and disposition for Guideline First positive answer recorded, all responses to prior questions were negative. If symptoms increase, change or if new symptoms develop, call your HCP or call back. Recommendations were based on caller information and is not a diagnosis. Verified and reviewed all triage information with caller. Reason for Disposition [1] Red area or streak [2] large (> 2 in. or 5 cm) Protocols used: Leg Swelling and Edema-A-AH Patient is in agreement to be seen in Emergency Department. documented in this encounter Plan of Treatment Upcoming Encounters Date Type Department Care Team (Late st Contact Info) Description 05/17/2024 2:45 PM GEOTECHNICAL ENGINEERING TECHNICIAN Office Visit [facility] - [place] #2 [place] [address] Annel Rod MD #[address] [address] documented as of this encounter Visit Diagnoses Not on filedocumented in this encounter Additional Health Concerns Assessment Noted Time PHQ-9 Depression Total Score: 8 01/18/20 23 2:24 PM CDT documented as of this encounter Care Teams Hand Profiler Relationship Specialty Start Date End Date Justen Gale MD #2 [facility] [address] [place] [address] PCP - General Family Medicine 10/17/17 David Roberts APRN, MOLD PRESSER #2 [place] [address] Nurse Practitioner Advanced Practice Nurse 01/31/22 Annel Rod MD #2 [facility] [address] [place] [address] Consulting Physician Endocrinology 07/01/22 documented as of this encounter
--- OUTSIDE RECORDS SUMMARY | 2024-04-26 02:53 | XMS_ITS | Encounter Summary ---
Author Organization [facility] Address [address] [place] [address] Phone Care Team Providers Care Computer Operations Manager Name Role Phone Justen Gale MD Primary Care Provider [phone] David Roberts APRN, LUMBER MATERIAL HANDLER Unavailable [phone] Annel Rod MD Unavailable Encounter Details Date Type Department Care Team (Late st Contact Info) Description 11/13/2023 Telephone [facility] - [facility] #2 [place] [address] Justen Gale MD #[address] [address] Social History Tobacco Use Types Packs/Day Years [...] Encounter - Justen Gale MD - 11/13/2023 2:41 PM CDT d documented in this encounter Plan of Treatment Upcoming Encounters Date Type Department Care Team (Late st Contact Info) Description 05/17/2024 2:45 PM DISPOSAL WORKER Office Visit [facility] - Endocrinology - [place] #2 [place] [address] Annel Rod MD #[address] [address] documented as of this encounter Visit Diagnoses Not on filedocumented in this encounter Additional Health Concerns Assessment Noted Time PHQ-9 Depression Total Score: 8 01/18/20 23 2:24 PM CDT documented as of this encounter Care Teams Computer Operations Manager Relationship Specialty Start Date End Date Justen Gale MD #[address] [address] PCP - General Family Medicine 10/17/17 David Roberts APRN, LUMBER MATERIAL HANDLER #2 [place] [address] Nurse Practitioner Advanced Practice Nurse 01/31/22 Annel Rod MD #[address] [phone] Consulting Physician Endocrinology 07/01/22 documented as of this encounter
--- OUTSIDE RECORDS SUMMARY | 2024-04-26 02:53 | XMS_ITS | Encounter Summary ---
Author Organization [facility] Address [address] [place] [address] Phone Care Team Providers Care Casing Builder Name Role Phone Justen Gale MD Primary Care Provider [phone] David Roberts APRN, DEVOPS ARCHITECT Unavailable [phone] Annel Rod MD Unavailable Encounter Details Date Type Department Care Team (Late st Contact Info) Description 11/08/2023 Telephone [facility] - Family Medicine [facility] #2 [place] [address] Justen Gale MD #[address] [address] Social History Tobacco Use Types Packs/Day Years [...] Telephone Encounter - Stacy Huang RN - 11/08/2023 1:17 PM CDT Patient came into office for visit. While sitting in the waiting room she felt a little short of breath. RN went up and patient stated that she was warm and that she has had some stomach issues and felt like she could not take a deep breath. Patient was assessed and O2 was 98 HR was 78. Patient was flushed and warm. Patient has cold napkins using to cool herself off. Office does not have air conditioning at this time. And it was 81 degrees in the office. documented in this encounter Plan of Treatment Upcoming Encounters Date Type Department Care Team (Late st Contact Info) Description 05/17/2024 2:45 PM BUSINESS MANAGEMENT ANALYST Office Visit [facility] - Endocrinology [facility] #2 [place] [address] Annel Rod MD #[address] [address] documented as of this encounter Visit Diagnoses Not on filedocumented in this encounter Additional Health Concerns Assessment Noted Time PHQ-9 Depression Total Score: 8 01/18/20 23 2:24 PM CDT documented as of this encounter Care Teams Casing Builder Relationship Specialty Start Date End Date Justen Gale MD #2 [facility] [address] [place] [address] PCP - General Family Medicine 10/17/17 David Roberts APRN, DEVOPS ARCHITECT #2 [place] [address] Nurse Practitioner Advanced Practice Nurse 01/31/22 Annel Rod MD #[address] [address] Consulting Physician Endocrinology 07/01/22 documented as of this encounter
--- OUTSIDE RECORDS SUMMARY | 2024-04-26 02:53 | XMS_ITS | Encounter Summary ---
Author Organization [facility] [employer] Care Team Providers Care Harbor Tug Captain Name Role Phone Justen Gale MD Primary Care Provider [phone] David Roberts APRN, [facility] Unavailable [phone] Annel Rod MD Unavailable Encounter Details Date Type Department Care Team (Latest Contact Info) Description 01/17/2024 Travel Social History Tobacco Use Types Packs/Day [...] st Contact Info) Description 05/17/2024 2:45 PM APPLICATIONS SCIENTIST Office Visit [facility] Medical Group - Endocrinology [facility] #2 [place] [phone] Annel Rod MD #[address] [address] documented as of this encounter Visit Diagnoses Not on filedocumented in this encounter Additional Health Concerns Assessment Noted Time PHQ-9 Depression Total Score: 8 01/18/20 23 2:24 PM CDT documented as of this encounter Care Teams Harbor Tug Captain Relationship Specialty Start Date End Date Justen Gale MD #[address] [address] PCP - General Family Medicine 10/17/17 David Roberts APRN, NETTA #2 [place] [address] Nurse Practitioner Advanced Practice Nurse 01/31/22 Annel Rod MD #[address] [address] Consulting Physician Endocrinology 07/01/22 documented as of this encounter
--- OUTSIDE RECORDS SUMMARY | 2024-04-26 02:53 | XMS_ITS | Encounter Summary ---
Author Organization [facility] Address [address] [place] [address] Phone Care Team Providers Care Glass Cut Off Tender Name Role Phone Justen Gale MD Primary Care Provider [phone] David Roberts APRN, SUPERVISOR [employer] Unavailable [phone] Annel Rod MD Unavailable Reason for Referral * Consult, Test & Initiate Treatment (Less Than 2 Weeks) - Canceled Specialty Diagnoses / Procedures Referred By Contkristina t Referred To Contact General Surgery Diagnoses Nausea and vomiting, unspecified vomiting type Justen Gale MD #2 [facility] [address] [place] [address] Phone: tel: fax: [facility] - General Surgery [facility] #2 [facility] [address] [place] [address] Phone: tel: fax: Referral ID Status Reason Start Date Expiration Date V isits Requested Visits Authorized [id number] Canceled 11/08/2023 1 1 Scheduling Instructions Karly is being referred for persistent n/v/epigastric pain. Please contact patient for scheduling questions or concerns. Reason for Visit * Reason Comments ED Follow-up Encounter Details Date Type Department Care Team (Late st Contact Info) Description 11/08/2023 1:00 PM CDT Office Visit [facility] - Family [facility] [address] [place] [address] Justen Gale MD #[address] [address] Nausea and vomiting, unspecified vomiting type (Primary Dx) Discharge Disposition: Discharged to home [...] Sign Reading Time Taken Comments Blood Pressure 148/84 11/08/2023 12:38 PM CDT Pulse 85 11/08/2023 12:38 PM CDT Temperature 36.3 ??C (97.3 ??F) 11/08/2023 1 2:38 PM CDT Respiratory Rate 18 11/08/2023 12:3 8 PM CDT Oxygen Saturation 98% 11/08/2023 12: 38 PM CDT Inhaled Oxygen Concentration - - Weight 119.6 kg (263 lb 11.2 oz) 2023 12:38 PM CDT Height 154.9 cm (5' 1 ) 11/08/2023 12:3 8 PM CDT Body Mass Index 49.83 11/08/2023 12:38 PM CDT documented in this encounter Progress Notes * Alvina Lockwood, RMA - 11/08/2023 1:00 PM CDT Karly Marques, 68 y.o., female is here for ED Follow-up Medication Refills: Patient reports/denies need for medication refills. Orders Pended: no Requested Prescriptions No prescriptions requested or ordered in this encounter Home Medications Medication Sig Start Date End Date Taking? Authorizing Provider albuterol 108 (90 Base) MCG/ACT Aerosol Solution take 2 Puffs by inhalation. 04/19/21 Yes Tyler Smith MD amoxicillin-clavulanate (AUGMENTIN) 500-125 MG Tablet Take 1 Tablet by mouth every 8 hours. 09/07/23Yes Tyler Smith MD B-Kary ULTRAFINE III SHORT PEN 31G X 8 MM Misc USE 6 TIMES DAILY DIRECTED 06/16/22 Yes Justen Gale MD Blood Glucose Monitoring Suppl Device Diagnosis: Diabetes Type 2 Blood testing frequency: 4 times aday 11/21/17 Yes Justen Gale MD Continuous Blood Gluc Sensor (FreeStyle Eileen 2 Sensor) Misc APPLY 1 SENSOR AND WEAR FOR 14 DAYS TOCHE BLOOD SUGAR 08/07/23 Yes Annel Rod MD [...] MG Capsule Take 10 mg by mouth. 08/24/23 Yes Tyler Smith MD diphenhydrAMINE (BENADRYL) 25 MG [...] daily. 02/11/20 Yes Annel Rod MD HumaLOG KwikPen 100 UNIT/ML Solution Pen-injector INJECT 28 UNITS UNDER SKIN BEFORE EACH MEAL.; ISFOF 1:15 OF IF>150MG/DL; MAX DAILY DOSE OF 100 UNITS 06/27/23 Yes Annel Rod MD [employer] ViancaikPen 100 UNIT/ML Solution Pen-injector ADMINSTER 22 UNITS UNDER THE SKIN BEFORE EACH MEAL, ISF OF 1:15 OF IF> 150MG/DL MAX DAILY DOSE OF 100 UNITS 03/07/23 Yes Annel Rod MD HYDROcodone-acetaminophen (NORCO) 7.5-325 MG Tablet TK 1 T PO QID PRN. DO NOT FILL UNTIL Yes Tyler Smith MD Lanchava SoloStar 100 UNIT/ML Solution Pen-injector ADMINISTER 40 UNITS UNDER THE SKIN EVERY MORNING Patient taking differently: 32 Units. ADMINISTER 40 UNITS UNDER THE SKIN EVERY MORNING 06/27/23 Yes Annel Rod MD methenamine (HIPREX) 1 GM Tablet Take 1 g by mouth 2 times daily. Yes Tyler Smith MD methocarbamol (ROBAXIN) 500 MG Tablet Take 500 mg by mouth. Yes Tyler Smith MD [facility]. Devices [facility] Supply and instructions: 09/09/20 Yes Justen Gale MD naloxone HCl (Narcan) 4 MG/0.1ML Liquid as needed 05/13/21 Yes Tyler Smith MD nystatin 388962 UNIT/GM Powder 11/09/21 Yes Tyler Smith MD ondansetron (Zofran) 4 MG Tablet Take 1 Tablet by mouth every 8 hours as needed for Nausea - 1st line. 04/13/23 Yes Pili Elkins APRN, SUPERVISOR [employer] OneTouch Delica Lancets 33G [facility] 1 Lancet by Does not apply route [...] Never done Respiratory Syncytial Virus (RSV) Immunization (Adult - or age 60+ years) (1 - 1-dose 60+ series) Never done Diabetes: Foot Exam 08/12/2020 SARS-COV-2 Immunization (2022-24 season) 2022 Orders Pended: no The following BPA's have been addressed with the patient today: No BPAs * Justen Gale MD - 11/08/2023 1:00 PM CDT SUBJECTIVE: Karly Marques is here to follow-up/ evaluation on her 1. Nausea and vomiting, unspecified vomiting type Past Medical History Positives Diagnosis Date Breast cancer (HCC) Diabetes (HCC) DVT (deep venous thrombosis) (HCC) High blood pressure History of pulmonary embolus (PE) Hyperthyroidism Neuropathy Osteoarthritis Restless leg syndrome Sciatica Sleep apnea Spinal stenosis Past Surgical History: Procedure Laterality Date BACK SURGERY 02/16/2023 [facility]; Spinal Stmulator BREAST SURGERY CHOLECYSTECTOMY LAP,INGUINAL HERNIA REPR,INITIAL MASTECTOMY BILATERAL Bilateral 2014 Social History Tobacco Use Smoking status: Never Smokeless tobacco: Never Substance Use Topics Alcohol use: No Exercise: no ROS: She denies chest pain, dyspnea, claudication, visual symptoms. She denies symptoms of transient ischemic attacks. No lightheadedness, palpitations, or syncope. No edema. She is compliant in taking her medication and denies medication side effects. Was in ed few times Having a lot of stomach issues Having some stomach pain Often when eats, gets sick Gets stomach pain, feels light headed. Feels nauseated Having bm helps Abd pain come out of blue as well Dx of gastroparesis Blood work reportedly normal EKG normal per patient Issues for past three months Losing weight due to symptoms 20-30 lbs Hard to eat things Ed 11/04/ed 10/31/2023 Saw judy 09/14 for n/v Ed 08/24/2023 n/v abd pain Poor appetite. Epigastric pain often Periumbilical pain She can't id trigger of the pain besides eating Mostly when eats gets pain Outpatient Medications Marked as Taking for the 11/08/23 encounter (Office Visit) with Justen Gale MD Medication Sig Dispense Refill albuterol 108 (90 Base) MCG/ACT Aerosol Solution take 2 Puffs by inhalation. amoxicillin-clavulanate (AUGMENTIN) 500-125 MG Tablet Take 1 Tablet by mouth every 8 hours. B-D ULTRAFINE III SHORT PEN 31G X [...] TO CHECK BLOOD SUGAR 6 Each 1 dicyclomine (BENTYL) 10 MG Capsule Take 10 mg by mouth. diphenhydrAMINE (BENADRYL) 25 MG Capsule Take 25 [...] 100 UNITS 30 mL 1 HYDROcodone-acetaminophen (NORCO) 7.5-325 MG Tablet TK 1 T PO QID PRN. DO NOT FILL UNTIL Lantus SoloStar 100 UNIT/ML Solution Pen-injector ADMINISTER 40 UNITS UNDER THE SKIN EVERY MORNING (Patient taking differently: 32 Units. ADMINISTER 40 UNITS UNDER THE SKIN EVERY MORNING) 45 mL 1 methenamine (HIPREX) 1 GM Tablet Take 1 g by mouth 2 times daily. methocarbamol (ROBAXIN) 500 MG Tablet Take 500 mg by mouth. Misc. Devices [facility] Supply and instructions: 1 Each 0 naloxone HCl (Narcan) 4 MG/0.1ML Liquid as needed nystatin [id number] UNIT/GM Powder ondansetron (Zofran) 4 MG Tablet Take 1 Tablet by mouth every 8 hours as needed for Nausea - 1st line. 15 Tablet 0 OneTouch Delica Lancets 33G [facility] 1 Lancet by Does not apply route [...] Reactions Ceftriaxone Anaphylaxis Cephalosporins Anaphylaxis Dermatological Products, [facility]. Hives and Itching SURGICAL TAPE Lorazepam Other [...] y.o. female in no acute distress. Vitals: 11/08/23 1238 BP: 148/84 Pulse: 85 Resp: 18 Temp: 97.3 ??F (36.3 ??C) TempSrc: Temporal SpO2: 98% Weight: 263 lb 11.2 oz (119.6 kg) Height: 5' 1 (1.549 m) Body mass index is 49.83 kg/m??. BP Readings from Last 3 Encounters: 11/08/23 148/84 11/02/23 136/68 11/02/23 (!) 162/99 Wt Readings from Last 3 Encounters: 11/08/23 263 lb 11.2 oz (119.6 kg) 11/02/23 263 lb (119.3 kg) 09/08/23 273 lb 8 oz (124.1 kg) SKIN: Warm and dry. EYES: Sclerae are clear. NECK: Supple. No thyromegaly or adenopathy, no bruits.BACK: No spine or costovertebral angle tenderness. LUNGS: Clear to auscultation and percussion. HEART:normal rate, regular rhythm, normal S1, S2, no murmurs, rubs, clicks or gallops. ABDOMEN: Bowel sounds are active. No masses. No organomegaly, no tenderness. No bruits. EXTREMITIES: No edema. Obese Pos bs x4 No rebound No masses ASSESSMENT AND PLAN Diagnoses and all orders for this visit: Nausea and vomiting, unspecified vomiting type - COLORECTAL SURGICAL REFERRAL; Future - CELIAC ANTIBODY PANEL; Future Other orders - ondansetron (Zofran) 4 MG Tablet; Take 1 Tablet by mouth every 8 hours as needed for Nausea - 1stline. Medications Discontinued During This Encounter Medication Reason ondansetron (Zofran) 4 MG Tablet Reorder No follow-ups on file. After visit summary discussed with patient. Documentation for this visit on 11/08/2023 was completed using a template. I have seen and examined the patient. Everything documented was personally performed at this visit with the necessary additions, deletions and changes made as appropriate. N/v/abd pain; scheduled to see gi in February cmp, cbc okay. Lipase wnl Aic high at 8. Related to dm? Ct abd wnl. Allergies to reglan, nausea medicine besides zofran. Gastroparesis? Ulcer? Ibs? Will call in zofran. Celiac panel. documented in this encounter Plan of Treatment Upcoming Encounters Date Type Department Care Team (Late st Contact Info) Description 05/17/2024 2:45 PM SENIOR ARCHITECT/DESIGN MANAGER Office Visit [facility] - Endocrinology - [place] #[address] [place] [address] Annel Rod MD #[address] [id number] Scheduled Referrals Name Type Priority Associated Diagnoses Order Schedule COLORECTAL SURGICAL REFERRAL Outpatient Referral Less Than 2 weeks Nausea and vomiting, unspecified vomiting type Expected: 11/08/2023, Expires: 11/07/2024 documented as of this encounter Visit Diagnoses Diagnosis Nausea and vomiting, unspecified vomiting type- Primary documented in this encounter Additional Health Concerns Assessment Noted Time PHQ-9 Depression Total Score: 8 01/18/20 23 2:24 PM CDT documented as of this encounter Care Teams Glass Cut Off Tender Relationship Specialty Start Date End Date Justen Gale MD #2 [facility] [address] [place] [address] PCP - General Family Medicine 10/17/17 David Roberts, QUALITY ASSURANCE MANAGER, SUPERVISOR [employer] #2 [place] [address] Nurse Practitioner Advanced Practice Nurse 01/31/22 Annel Rod MD #2 [facility] [address] [place] [address] Consulting Physician Endocrinology 07/01/22 documented as of this encounter
--- OUTSIDE RECORDS SUMMARY | 2024-04-26 02:54 | XMS_ITS | Encounter Summary ---
Author Organization [facility] Address [address] [place] [address] Phone Care Team Providers Care Marble Finisher Name Role Phone Justen Gale MD Primary Care Provider [phone] David Roberts APRN, YARN DUMPER Unavailable [phone] Annel Rod MD Unavailable Reason for Visit * Reason Onset Date Comments Shortness of Breath 07/02/2023 Encounter Details Date Type Department Care Team (Late st Contact Info) Description 07/02/2023 [facility] [address] [place] [address] Justen Gale MD #[address] [address] Shortness of Breath Social History Tobacco Use Types Packs/Day Years [...] Miscellaneous Notes * Telephone Encounter - Bianca Billy RN - 07/02/2023 6:21 PM CDT SITUATION: Shortness of breath/possible allergic reaction BACKGROUND: Pt states she started feeling short of breath after taking antibiotics today. ASSESSMENT: Symptom Description / Location: Pt was diagnosed with strep. Currently on Augmentin - pt states she is not allergic to Augmentin but it makes her sick. Pt states the last few days she has noticed after taking medication that she has been feeling shortness of breath. Currently shortness of breath - started about 20 mins ago, took antibiotics about 1 hour ago. Pt states she was not feeling short of breath prior to taking antibiotic. Pt states shortness of breath when sitting still. Unable to lay flat. Pt states she is also itching. Took benadryl Pt states she feels a little lightheaded. Denies - wheezing, chest pain, coughing. Pain (0-10): 0/10 Temp: denies Treatment / Response: took benadryl RECOMMENDATION: See care advice and disposition for Guideline First positive answer recorded, all responses to prior questions were negative. If symptoms increase, change or if new symptoms develop, call your HCP or call back. Recommendations were based on caller information and is not a diagnosis. Verified and reviewed all triage information with caller. Reason for Disposition [1] MODERATE difficulty breathing (e.g., speaks in phrases, SOB even at rest, pulse 100-120) AND [2] NEW-onset or WORSE than normal Protocols used: Breathing [id number] Pt verbalizes understanding of need to go to ER and be seen by a provider. documented in this encounter Plan of Treatment Upcoming Encounters Date Type Department Care Team (Late st Contact Info) Description 05/17/2024 2:45 PM BOATS RENTER Office Visit [facility] Medical Group - Endocrinology - [place] #2 [place] [address] Annel Rod MD #2 [facility] [address] [place] [address] documented as of this encounter Visit Diagnoses Not on filedocumented in this encounter Additional Health Concerns Assessment Noted Time PHQ-9 Depression Total Score: 8 01/18/20 23 2:24 PM CDT documented as of this encounter Care Teams Marble Finisher Relationship Specialty Start Date End Date Justen Gale MD #2 [facility] [address] [place] [address] PCP - General Family Medicine 10/17/17 David Roberts APRN, CNP #2 [place] [address] Nurse Practitioner Advanced Practice Nurse 01/31/22 Annel Rod MD #2 [facility] [address] [place] [address] Consulting Physician Endocrinology 07/01/22 documented as of this encounter
--- OUTSIDE RECORDS SUMMARY | 2024-04-26 02:54 | XMS_ITS | Encounter Summary ---
Author Organization [facility] Address [address] [place] [address] Phone Care Team Providers Care Welfare Administrator Name Role Phone Justen Gale MD Primary Care Provider [phone] David Roberts APRN, NEWS CONTENT SPECIALIST Unavailable [phone] Annel Rod MD Unavailable Reason for Visit * Reason Onset Date Comments Advice Only 10/22/2023 Encounter Details Date Type Department Care Team (Late st Contact Info) Description 10/22/2023 Telephone [facility] [address] [place] [address] Justen Gale MD #[address] [address] Advice Only Social History Tobacco Use Types [...] Miscellaneous Notes * Telephone Encounter - Lizzy Bishop RN - 10/22/2023 9:52 PM CDT SITUATION (caller perception/concerns): Advice only BACKGROUND (events leading up to call): Slipped in tub 4-5 weeks ago. Hit inside of leg during fall and it bruised up and also had a knot develop Bruising has all cleared up but the knot remains and is bigger ASSESSMENT: Would like to know is she should be seen On blood thinners RECOMMENDATION: Recommendation is to see a Provider, patient will schedule via my chart. If symptoms increase, change, or if new symptoms develop, patient to report to emergency room. Verified and reviewed all information with caller. Caller verbalized understanding of information given and denies further questions. Teach-back method utilized. documented in this encounter Plan of Treatment Upcoming Encounters Date Type Department Care Team (Late st Contact Info) Description 05/17/2024 2:45 PM BUGGY LADLE TENDER Office Visit [facility] - Endocrinology [facility] #2 [place] [address] Annel Rod MD #[address] [facility] [address] [place] [address] documented as of this encounter Visit Diagnoses Not on filedocumented in this encounter Additional Health Concerns Assessment Noted Time PHQ-9 Depression Total Score: 8 01/18/20 23 2:24 PM CDT documented as of this encounter Care Teams Welfare Administrator Relationship Specialty Start Date End Date Justen Gale MD #[address] [facility] [address] [place] [address] PCP - General Family Medicine 10/17/17 RobertsDavid evans APRN, NEWS CONTENT SPECIALIST #2 [facility] [place] [address] Nurse Practitioner Advanced Practice Nurse 01/31/22 Annel Rod MD #[address] [phone] Consulting Physician Endocrinology 07/01/22 documented as of this encounter
--- OUTSIDE RECORDS SUMMARY | 2024-04-26 02:54 | XMS_ITS | Encounter Summary ---
Author Organization [facility] Address [address] [place] [address] Phone Care Team Providers Care Product Development Specialist Name Role Phone Justen Gale MD Primary Care Provider [phone] David Roberts APRN, REGISTERED RESPIRATORY THERAPIST Unavailable [phone] Annel Rod MD Unavailable Reason for Visit * Reason Onset Date Comments Medication Refill 08/11/2023 Encounter Details Date Type Department Care Team (Late st Contact Info) Description 08/11/2023 Refill [facility] - Endocrinology - [place] #[address] [place] [address] Annel Rod MD [address] [address] Medication Refill Social History Tobacco [...] Telephone Encounter - Annel Rod MD - 08/11/2023 4:52 PM CDT Rx of Mournjaro 5 mg sent * Telephone Encounter - Jenny Patel RMA - 08/11/2023 1:10 PM CDT Patient needs refill on mounjaro documented in this encounter Plan of Treatment Upcoming Encounters Date Type Department Care Team (Late st Contact Info) Description 05/17/2024 2:45 PM FACTORER Office Visit [facility] - Endocrinology [facility] #2 [place] [address] Annel Rod MD #[address] [address] documented as of this encounter Visit Diagnoses Not on filedocumented in this encounter Additional Health Concerns Assessment Noted Time PHQ-9 Depression Total Score: 8 01/18/20 23 2:24 PM CDT documented as of this encounter Care Teams Product Development Specialist Relationship Specialty Start Date End Date Justen Gale MD #[address] [address] PCP - General Family Medicine 10/17/17 David Roberts APRN, REGISTERED RESPIRATORY THERAPIST #2 [place] [address] Nurse Practitioner Advanced Practice Nurse 01/31/22 Annel Rod MD #[address] [address] Consulting Physician Endocrinology 07/01/22 documented as of this encounter
--- OUTSIDE RECORDS SUMMARY | 2024-04-26 02:54 | XMS_ITS | Encounter Summary ---
Author Organization [facility] Address [address] [place] [address] Phone Care Team Providers Care Procedural Nurse Name Role Phone Justen Gale MD Primary Care Provider [phone] David Roberts APRN, PHYSICAL THERAPY TECHNICIAN Unavailable [phone] Annel Rod MD Unavailable Reason for Visit * Reason Onset Date Comments Low Blood Sugar 07/19/2023 Encounter Details Date Type Department Care Team (Late st Contact Info) Description 07/19/2023 Telephone [facility] - Endocr[facility]ology - [place] #[address] [place] [address] Annel Rod MD #[address] [address] Low Blood Sugar Social History Tobacco Use Types [...] encounter Miscellaneous Notes * Telephone Encounter - Jenny Patel RMA - 07/20/2023 8:39 AM CDT Left message for patient to call back. * Telephone Encounter - Annel Rod MD - 07/20/2023 8:13 AM CDT Current Rx: Lantus to 40 units QAM Humalog 28 units QAM Correctional factor insulin dosed at 1:15 if CBG is > 140 mg/dl Mournjaro Weekly PLAN: Decrease Lantus to 32 units in the morning Contact endocrinology office for low blood sugar event * Telephone Encounter - Jenny Patel RMA - 07/19/2023 2:04 PM CDT Patient was calling in to report low blood sugars. Past couple days even during the middle of the night she has had several lows and sugars are dropping and she would like to know what to do, she said it even drops after she eats documented in this encounter Plan of Treatment Upcoming Encounters Date Type Department Care Team (Late st Contact Info) Description 05/17/2024 2:45 PM BEAD PREPARER Office Visit [facility] - Endocrinology - [place] #2 [place] [address] Annel Rod MD #[address] [phone] documented as of this encounter Visit Diagnoses Not on filedocumented in this encounter Additional Health Concerns Assessment Noted Time PHQ-9 Depression Total Score: 8 01/18/20 23 2:24 PM CDT documented as of this encounter Care Teams Procedural Nurse Relationship Specialty Start Date End Date Justen Gale MD #2 [facility] [address] [place] [address] PCP - General Family Medicine 10/17/17 David Roberts APRN, PHYSICAL THERAPY TECHNICIAN #2 [place] [address] Nurse Practitioner Advanced Practice Nurse 01/31/22 Annel Rod MD #2 [facility] [address] [place] [address] Consulting Physician Endocrinology 07/01/22 documented as of this encounter
--- OUTSIDE RECORDS SUMMARY | 2024-04-26 02:54 | XMS_ITS | Encounter Summary ---
Author Organization [facility] Address [address] [place] [address] Phone Care Team Providers Care Quick Print Operator Name Role Phone Justen Gale MD Primary Care Provider [phone] David Roberts APRN, SECRETARIAL TEACHER Unavailable [phone] Annel Rod MD Unavailable Reason for Visit * Auth/Cert (Routine) Specialty Diagnoses / Procedures Referred By Elyssa benavides Referred To Contact Diagnoses THYROID NODULE Procedures PRE / POST CARE FOR PROCEDURAL AREA Referral ID Status Reason Start Date Expiration Date Visits Re quested Visits Authorized [id number] 1 1 Encounter Details Date Type Department Care Team (Latest Contact Info) Description 11/02/2023 9:36 AM CDT - 11/02/2023 11:15 AM CDT Hospital Encounter [facility] Preop/Pacu II 1 [place] [address] Provider, Not On File Annel Hernandez MD #[address] [phone] Discharge Disposition: Discharged to home or Selfcare [...] Sign Reading Time Taken Comments Blood Pressure 162/99 11/02/2023 11:15 AM CDT Pulse 62 11/02/2023 11:15 AM CDT Temperature 35.9 ??C (96.6 ??F) 11/02/2023 11:15 AM C DT Respiratory Rate 18 11/02/2023 11:15 AM CDT Oxygen Saturation 100% 11/02/2023 11:15 AM CDT Inhaled Oxygen Concentration - - [...] Take 500 mg by mouth. 4 nystatin 445314 UNIT/GM Powder 11/09/2021 4 ondansetron (Zofran) 4 MG Tablet Take 1 Tablet by mouth every 8 hours as needed for Nausea - 1st line. 15 Tablet 04/13/2023 4 rOPINIROLE (REQUIP) 5 MG Tablet TAKE 1 TABLET BY MOUTH EVERY NIGHT 90 Tablet 2 07/06/2023 4 documented as of this encounter Miscellaneous Notes * Plan of Care - Damon Jama RN - 11/02/2023 11:19 AM CDT Problem: [...] Review Outcome: Ongoing (see interventions/notes) Flowsheets (Taken 11/02/2023 0940) Plan of Care Reviewed With: patient family Progress: progress toward functional goals as expected Today's Goal: to discharge home Outcome Evaluation: ready for or Does the patient need assistance with discharge and/or transitioning to the next level of care?: No, no needs anticipated Goal: Optimal Comfort and Wellbeing Outcome: Ongoing (see interventions/notes) Intervention: Provide Person-Centered Care Flowsheets (Taken 11/02/2023 0940) Trust Relationship/Rapport: care explained choices provided Goal: Readiness for Transition of Care Outcome: Ongoing (see interventions/notes) Intervention: Mutually Develop Transition Plan Flowsheets (Taken 11/02/2023 0940) Readmission Within the Last 30 Days: no previous admission in last 30 days documented in this encounter Plan of Treatment Upcoming Encounters Date Type Department Care Team (Late st Contact Info) Description 05/17/2024 2:45 PM MALT HOUSE OPERATOR Office Visit [facility] #2 [place] [address] Annel Rod MD #2 [place] [address] [place] [address] documented as of this encounter Procedures Procedure Name Priority Date/Time Associated Diagnosis Comments PRE / POST CARE FOR PROCEDURAL AREA 11/02/2023 10:00 AM CDT THYROID NODULE documented in this encounter Visit Diagnoses Not on filedocumented in this encounter Additional Health Concerns Assessment Noted Time PHQ-9 Depression Total Score: 8 01/18/20 23 2:24 PM CDT documented as of this encounter Care Teams Quick Print Operator Relationship Specialty Start Date End Date Justen Gale MD #2 [place] [address] [place] [address] PCP - General Family Medicine 10/17/17 David Roberts APRN, NETTA #2 [place] [address] Nurse Practitioner Advanced Practice Nurse 01/31/22 Annel Rod MD #[address] [address] Consulting Physician Endocrinology 07/01/22 documented as of this encounter
--- OUTSIDE RECORDS SUMMARY | 2024-04-26 02:54 | XMS_ITS | Encounter Summary ---
Author Organization [facility] Address [address] [address] Phone Care Team Providers Care Land Economist Name Role Phone Justen Gale MD Primary Care Provider [phone] David Roberts APRN, COOK NIGHT Unavailable [phone] Annel Rod MD Unavailable Encounter Details Date Type Department Care Team (Late st Contact Info) Description 11/01/2023 Telephone [facility] [address] [place] [address] Justen Gale MD #[address] [address] Social History Tobacco Use Types Packs/Day Years [...] encounter Miscellaneous Notes * Telephone Encounter - Minal Lechuga RN - 11/01/2023 12:32 PM CDT Situation: patient calling to confirm reason for her upcoming appointment. Background: EMERGENCY DEPARTMENT visit noted 10/31/23 . Scheduled follow at this time. All Patient Appointments Provider Department Dept Phone 11/02/2023 10:00 AM [email or web address]; SAHCUS2 [facility] Ultrasound [phone] 11/08/2023 1:00 PM Justen Gale [facility] Family Medicine - [place] [phone] 11/22/2023 1:45 PM Annel Rod [facility] Endocrinology - [place] [phone] 12/06/2023 1:30 PM Justen Gale [facility] - [place] [phone] Assessment: na Recommendation: na documented in this encounter Plan of Treatment Upcoming Encounters Date Type Department Care Team (Late st Contact Info) Description 05/17/2024 2:45 PM HAND DRAWER IN HELPER Office Visit [facility] - Endocrinology - [place] #2 [place] [address] Annel Rod MD #2 [facility] [address] [place] [address] documented as of this encounter Visit Diagnoses Not on filedocumented in this encounter Additional Health Concerns Assessment Noted Time PHQ-9 Depression Total Score: 8 01/18/20 23 2:24 PM CDT documented as of this encounter Care Teams Land Economist Relationship Specialty Start Date End Date Justen Gale MD #2 [facility] [address] [place] [address] PCP - General Family Medicine 10/17/17 David Roberts APRN, NETTA #2 [facility] [address] Nurse Practitioner Advanced Practice Nurse 01/31/22 Annel Rod MD #[address] [address] Consulting Physician Endocrinology 07/01/22 documented as of this encounter
--- OUTSIDE RECORDS SUMMARY | 2024-04-26 02:54 | XMS_ITS | Encounter Summary ---
Author Organization [facility] Address [address] [place] [address] Phone Care Team Providers Care Jacker Name Role Phone Justen Gale MD Primary Care Provider [phone] David Roberts APRN, MACHINE BUNCH MAKER Unavailable [phone] Annel Rod MD Unavailable Reason for Visit * Reason Comments Medication Refill Encounter Details Date Type Department Care Team (Late st Contact Info) Description 09/30/2023 Refill [facility] - Endocrinology - [place] #2 [place] [address] Annel Rod MD #[address] [address] Medication Refill Social History Tobacco [...] encounter Miscellaneous Notes * Telephone Encounter - Jennifer Wang, RN - 10/02/2023 9:27 AM CDT Medication(s) refilled and signed per [facility] Chronic Medication Refill Standing Order for Pediatric and Adult Patients. documented in this encounter Plan of Treatment Upcoming Encounters Date Type Department Care Team (Late st Contact Info) Description 05/17/2024 2:45 PM NURSING OFFICER Office Visit [facility] - Endocrinology [facility] [place] #2 [place] [address] Annel Rdo MD #[address] [address] documented as of this encounter Visit Diagnoses Not on filedocumented in this encounter Additional Health Concerns Assessment Noted Time PHQ-9 Depression Total Score: 8 01/18/20 23 2:24 PM CDT documented as of this encounter Care Teams Jacker Relationship Specialty Start Date End Date Justen Gale MD #[address] [address] PCP - General Family Medicine 10/17/17 David Roberts APRN, MACHINE BUNCH MAKER #2 [place] [address] Nurse Practitioner Advanced Practice Nurse 01/31/22 Annel Rod MD #[address] [address] Consulting Physician Endocrinology 07/01/22 documented as of this encounter
--- OUTSIDE RECORDS SUMMARY | 2024-04-26 02:54 | XMS_ITS | Encounter Summary ---
Author Organization [facility] Address [address] [place] [address] Phone Care Team Providers Care Transportation Maintenance Specialist Name Role Phone Justen Gale MD Primary Care Provider [phone] David Roberts APRN, MAGNAFLUX OPERATOR Unavailable [phone] Annel Rod MD Unavailable Reason for Visit * Reason Onset Date Comments Medication Management 08/01/2023 Follow-up 08/01/2023 Results 08/01/2023 Encounter Details Date Type Department Care Team (Late st Contact Info) Description 08/01/2023 Telephone [facility] [address] [place] [address] Justen Gale MD #[address] [address] Medication Management; Follow-up; Results Social History Tobacco Use Types Packs/Day [...] encounter Miscellaneous Notes * Telephone Encounter - Mary Crowe RN - 08/03/2023 11:33 AM CDT S: Urine Culture & Antibiotics B: Patient states she saw urine culture results today from recent stay at [facility] (please see Care Everywhere for culture results) A: Patient has been on Augmentin for 3 days now and feels worse. She states she has chills but no fever, feels shaky, urinary frequency, urinary incontinence and has pain in lower abdomen. She is also 'very weak feeling' and wants to be sure she is on the correct antibiotic. Offered to schedule patient with PCP tomorrow at 1045 for hospital follow-up, she declined stating she does not feel well enough to get to office R: Please advise Thank you * Telephone Encounter - Stacy Huang RN - 08/02/2023 9:33 AM CDT Sent message to patient through my chart * Telephone Encounter - Justen Gale MD - 08/01/2023 3:49 PM CDT Please call. I would do the augmentin * Telephone Encounter - Gianna May RN - 08/01/2023 3:26 PM CDT Situation: Urinary Tract Infection Background: Patient states she was admitted to the hospital with back pain and was found to have a UTI. Patientreports she has had recurrent UTI's and is allergic to multiple antibiotics. States they started her on fosfomycin and the UTI got worse. Patient states they are discharging her home today and starting her on Augmentin. Patient states with her history, she does not think Augmentin will work. She isconcerned that the UTI will get worse and she will have to be readmitted. She is asking for Shashi Gale MD recommendations as he is familiar with her recurrent UTI's and medication allergies. Assessment: N/A Recommendation: Please advise. Attempted to schedule hospital follow up appointment at this time and she declined. States she willschedule through [facility] later today. documented in this encounter Plan of Treatment Upcoming Encounters Date Type Department Care Team (Late st Contact Info) Description 05/17/2024 2:45 PM LUGGER Office Visit [facility] - Endocrinology [facility] #2 [place] [address] Annel Rod MD #[address] [address] documented as of this encounter Visit Diagnoses Not on filedocumented in this encounter Additional Health Concerns Assessment Noted Time PHQ-9 Depression Total Score: 8 01/18/20 23 2:24 PM CDT documented as of this encounter Care Teams Transportation Maintenance Specialist Relationship Specialty Start Date End Date Justen Gale MD #[address] [address] PCP - General Family Medicine 10/17/17 David Roberts, ROUNDHOUSE SUPERVISOR, MAGNAFLUX OPERATOR #2 [place] [address] Nurse Practitioner Advanced Practice Nurse 01/31/22 Annel Rod MD #[address] [address] Consulting Physician Endocrinology 07/01/22 documented as of this encounter
--- OUTSIDE RECORDS SUMMARY | 2024-04-26 02:54 | XMS_ITS | Encounter Summary ---
Author Organization [facility] Address [address] [place] [address] Phone Care Team Providers Care Food And Beverage Lead Name Role Phone Justen Gale MD Primary Care Provider [phone] David Roberts APRN, PHOTOGRAPHER ASSISTANT Unavailable [phone] Annel Rod MD Unavailable Reason for Visit * Reason Onset Date Comments Follow-up 08/03/2023 Encounter Details Date Type Department Care Team (Late st Contact Info) Description 08/03/2023 Telephone [facility] - Family [facility] #[address] [place] [address] Justen Gale MD #[address] [address] Follow-up Social History Tobacco Use Types Packs/Day [...] Telephone Encounter - Stacy Huang RN - 08/03/2023 4:06 PM CDT Called and spoke with patient and she stated that she understood. She says she feels worse today then yesterday, but if she feels worse tomorrow she will go back to the ER. * Telephone Encounter - Justen Gale MD - 08/03/2023 11:49 AM CDT Please call. Yes, just give it more time. Let us know if you're no better within the next 1-2 days. Go to ed if symptoms get worse--f/c, nausea, abd pain documented in this encounter Plan of Treatment Upcoming Encounters Date Type Department Care Team (Late st Contact Info) Description 05/17/2024 2:45 PM DIESEL LOCOMOTIVE CRANE OPERATOR Office Visit [facility] - Endocrinology [facility] #2 [place] [address] Annel Rod MD #2 [facility] [address] [place] [address] documented as of this encounter Visit Diagnoses Not on filedocumented in this encounter Additional Health Concerns Assessment Noted Time PHQ-9 Depression Total Score: 8 01/18/20 23 2:24 PM CDT documented as of this encounter Care Teams Food And Beverage Lead Relationship Specialty Start Date End Date Justen Gale MD #2 [facility] [address] [place] [address] PCP - General Family Medicine 10/17/17 David Roberts APRN, NETTA #[address] [place] [address] Nurse Practitioner Advanced Practice Nurse 01/31/22 Annel Rod MD #[address] [address] [address] Consulting Physician Endocrinology 07/01/22 documented as of this encounter
--- OUTSIDE RECORDS SUMMARY | 2024-04-26 02:54 | XMS_ITS | Encounter Summary ---
Author Organization [facility] Address [address] [place] [address] Phone Care Team Providers Care Housing Inspectors Name Role Phone Justen Gale MD Primary Care Provider [phone] David Roberts APRN, EMBEDDED SOFTWARE DEVELOPER Unavailable [phone] Annel Rod MD Unavailable Reason for Visit * Reason Onset Date Comments Care Management 10/10/2023 Encounter Details Date Type Department Care Team (Late st Contact Info) Description 10/10/2023 Telephone [facility] Ultrasound 1 [place] [address] Annel Rod MD #[address] [address] Care Management Social History Tobacco Use Types Packs/Day Years [...] Telephone Encounter - Annel Rod MD - 10/10/2023 4:38 PM CDT We will discuss it at her next visit. * Telephone Encounter - Anenl Rod MD - 10/10/2023 4:38 PM CDT ----- Message from Shanthi Grant RN sent at 10/04/2023 10:33 AM CDT ----- Patient has been trying to get in for thyroid biopsy but she is hospitalized and then going to a rehab facility. Per pt. She cannot have biopsy at this time * Telephone Encounter - Shanthi Grant RN - 10/10/2023 11:19 AM CDT Multiple messages left for patient to attempt to reschedule thyroid biopsy documented in this encounter Plan of Treatment Upcoming Encounters Date Type Department Care Team (Late st Contact Info) Description 05/17/2024 2:45 PM HELICOPTER DISPATCHER Office Visit [facility] - Endocrinology [facility] #[address] [place] [address] Annel Rod MD #[address] [phone] documented as of this encounter Visit Diagnoses Not on filedocumented in this encounter Additional Health Concerns Assessment Noted Time PHQ-9 Depression Total Score: 8 01/18/20 23 2:24 PM CDT documented as of this encounter Care Teams Housing Inspectors Relationship Specialty Start Date End Date Justen Gale MD #2 [facility] [address] [place] [address] PCP - General Family Medicine 10/17/17 David Roberts APRN, NETTA #2 [place] [address] Nurse Practitioner Advanced Practice Nurse 01/31/22 Annel Rod MD #2 [facility] [address] [place] [address] Consulting Physician Endocrinology 07/01/22 documented as of this encounter
--- OUTSIDE RECORDS SUMMARY | 2024-04-26 02:54 | XMS_ITS | Encounter Summary ---
Author Organization [facility] Address [address] [place] [address] Phone Care Team Providers Care Bandage Wrapping Machine Operator Name Role Phone Justen Gale MD Primary Care Provider [phone] David Roberts APRN, MELTER LOADER Unavailable [phone] Annel Rod MD Unavailable Reason for Visit * Reason Onset Date Comments Medication Management 07/07/2023 Encounter Details Date Type Department Care Team (Late st Contact Info) Description 07/07/2023 Telephone [facility] - Family [facility] #[address] [place] [address] Justen Gale MD #[address] [address] Medication Management Social History Tobacco Use Types Packs/Day [...] Telephone Encounter - Stacy Huang RN - 07/07/2023 12:18 PM CDT LVM and sent message to patient through my chart. * Telephone Encounter - Justen Gale MD - 07/07/2023 12:00 PM CDT Please call. I called in vaginal yeast meds Take benedryl for itching Stop abx documented in this encounter Plan of Treatment Upcoming Encounters Date Type Department Care Team (Late st Contact Info) Description 05/17/2024 2:45 PM AIR CARGO GROUND OPERATIONS SUPERVISOR Office Visit [facility] - Endocrinology [facility] #2 [place] [address] Annel Rod MD #2 [facility] [address] [place] [address] documented as of this encounter Visit Diagnoses Not on filedocumented in this encounter Additional Health Concerns Assessment Noted Time PHQ-9 Depression Total Score: 8 01/18/20 23 2:24 PM CDT documented as of this encounter Care Teams Bandage Wrapping Machine Operator Relationship Specialty Start Date End Date Justen Gale MD #2 [facility] [address] [place] [address] PCP - General Family Medicine 10/17/17 David Roberts, BRASS POLISHER, MELTER LOADER #2 [place] [address] Nurse Practitioner Advanced Practice Nurse 01/31/22 Annel Rod MD #2 [place] [phone] Consulting Physician Endocrinology 07/01/22 documented as of this encounter
--- OUTSIDE RECORDS SUMMARY | 2024-04-26 02:54 | XMS_ITS | Encounter Summary ---
Author Organization [facility] Address [address] [place] [address] Phone Care Team Providers Care Manager Field Name Role Phone Justen Gale MD Primary Care Provider [phone] David Roberts APRN, [facility] Unavailable [phone] Annel Rod MD Unavailable Reason for Referral * Radiology Services (Routine) - Closed Specialty Diagnoses / Procedures Referred By Elyssa benavides Referred To Contact Radiology Diagnoses Thyroid nodule Procedures US THYROID Annel Rod MD [address] [address] Phone: tel: fax: Referral ID Status Reason Start Date Expiration Date Visits Re quested Visits Authorized [id number] Closed 05/30/2023 1 1 Reason for Visit * Radiology Services (Routine) - Closed Specialty Diagnoses / Procedures Referred By Elyssa benavides Referred To Contact Radiology Diagnoses Thyroid nodule Procedures US THYROID Annel Rod MD #[address] [address] Phone: tel: fax: Referral ID Status Reason Start Date Expiration Date Visits Re quested Visits Authorized [id number] Closed 05/30/2023 1 1 Encounter Details Date Type Department Care Team (Latest Contact Info) Description 09/08/2023 1:32 PM CDT - 09/08/2023 11:59 PM CDT Hospital Encounter [facility] Ultrasound [address] [place] [id number] Annel Rod MD [address] [phone] Discharge Disposition: Discharged to home or Selfcare [...] * Question Answer Date of Assessment Author Little interest or pleasure in doing things Not at all 09/08/2023 2:53 PM Stephenie Dougherty CMA Feeling down, depressed, or hopeless Not at all 09/08/2023 2:53 PM Stephenie Dougherty CMA * Over the past 2 weeks, how often have you been bothered by any of the following problems? Question Answer Date of Assessment Author Patient Health Questionnaire -2 Score 0 09/08/2023 2:53 PM Stephenie Dougherty CMA documented as of this encounter Medications at Time of Discharge albuterol 108 (90 Base) MCG/ACT Aerosol Solution take 2 Puffs by inhalation. 04/19/2021 B-D ULTRAFINE III SHORT PEN 31G X 8 MM Misc USE 6 TIMES DAILY DIRECTED 300 Pen Needle 1 06/16/2022 Blood Glucose Monitoring Suppl DeviceIndications: Type 2 diabetes mellitus with complication, without long-term current use of insulin (HCC) Diagnosis: Diabetes Type 2 Blood testing frequency: 4 times a day 1 Each 11/21/2017 Continuous Blood Gluc Sensor (FreeStyle Eileen 2 Sensor) Misc APPLY 1 SENSOR AND WEAR FOR 14 DAYS TO CHECK BLOOD SUGAR 6 Each 1 08/07/2023 diphenhydrAMINE (BENADRYL) 25 MG Capsule Take 25 [...] OF 100 UNITS 30 mL 1 03/07/2023 HYDROcodone-acetam inophen (NORCO) 7.5-325 MG Tablet 0 02/17/2019 methenamine (HIPREX) 1 GM Tablet Take 1 g by mouth 2 times daily. Misc. Devices MiscIndications:OS A (obstructive sleep apnea) Supply and instructions: 1 [...] Tablet Take 20 mg by mouth daily. amitriptyline (ELAVIL) 25 MG Tablet nightly. 02/18/2019 amoxicillin-clavul anate (AUGMENTIN) 500-125 MG Tablet Take 1 Tablet by mouth every 8 hours. 09/07/2023 4 Continuous Blood Gluc Sensor (FreeStyle Eileen 2 Sensor) Misc 1 Each by Does not apply route every 14 days. Change sensor every 14 days. E11.42, insulin dependent 6 Each 1 04/14/2023 4 cyclobenzaprine (FLEXERIL) 5 MG Tablet TAKE 1 TABLET BY MOUTH EVERY NIGHT FOR 14 DAYS 14 Tablet 02/07/2023 4 dicyclomine (BENTYL) 10 MG Capsule Take 10 mg by mouth. 08/24/2023 4 hydrOXYzine (ATARAX) 10 MG Tablet Take 1 Tablet by mouth every 6 hours as needed for Anxiety. 30 Tablet 01/17/2023 4 hydrOXYzine (ATARAX) 10 MG Tablet 09/14/2022 4 hydrOXYzine (ATARAX) 25 MG Tablet Take 25 mg by mouth. 06/08/2022 4 Lantus SoloStar 100 UNIT/ML Solution Pen-injector ADMINISTER 40 UNITS UNDER THE SKIN EVERY MORNING 45 mL 1 06/27/2023 4 losartan (COZAAR) 50 MG Tablet Take 1 Tablet by mouth daily. 90 Tablet 3 10/19/2022 4 methenamine (HIPREX) 1 GM Tablet Take 1,000 mg by mouth. 04/27/2022 4 methocarbamol (ROBAXIN) 500 MG Tablet Take 500 mg by mouth. 4 metoprolol tartrate (LOPRESSOR) 25 MG TabletIndications: Essential hypertension Take 1 Tablet by mouth 2 times daily. 180 Tablet 3 07/05/2022 4 Myrbetriq 50 MG TABLET SR 24 HR Take 50 mg by mouth daily. 04/27/2022 4 nystatin 785559 UNIT/GM Powder 11/09/2021 4 ondansetron (Zofran) 4 MG Tablet Take 1 Tablet by mouth every 8 hours as needed for Nausea - 1st line. 15 Tablet 04/13/2023 4 ondansetron (ZOFRAN-ODT) 4 MG TABLET DISPERSIBLE Take 4 mg by mouth. 06/28/2023 4 rOPINIROLE (REQUIP) 5 MG Tablet TAKE 1 TABLET BY MOUTH EVERY NIGHT 90 Tablet 2 07/06/2023 4 trospium (SANCTURA) 20 MG Tablet Take 20 mg by mouth 2 times daily. 4 documented as of this encounter Plan of Treatment Upcoming Encounters Date Type Department Care Team (Late st Contact Info) Description 05/17/2024 2:45 PM DAIRY SPECIALIST Office Visit [facility] - Endocrinology [facility] [address] [place] [address] Annel Rod MD [address] [phone] documented as of this encounter Procedures Procedure Name Priority Date/Time Associated Diagnosis Comments US THYROID Routine 09/08/2023 2:10 PM CDT Thyroid nodule documented in this encounter Results * US THYROID (09/08/2023 2:10 PM CDT) Anatomical Region Laterality Modality BODY N/A Ultrasound 09/11/2023 12:5 2 PM CDT Impressions 09/11/2023 12:54 PM CDT IMPRESSION: 1. ??1.1 cm TI-RADS 4 nodule in the right superior thyroid. ??Follow-up is recommended. 2. ??1.6 cm TI-RADS 4 nodule in the left inferior thyroid. FNA is recommended. 3. ??2.6 cm nodule in the inferior/middle right thyroid gland is grossly unchanged and was previously biopsied with benign findings. REFERENCE: According to the ACR Thyroid Imaging, Reporting and Data System (TI-RADS): White Paper of the ACR TI-RADS Committee Aug, 2016 recommendations regarding the management of thyroid nodules are as follows: 1. ?? TI-RADS 1: Risk of malignancy <2%, no FNA or follow up required. 2. ?? TI-RADS 2: Risk of malignancy <2%, no FNA or follow up required. 3. ?? TI-RADS 3: Risk of malignancy 2%-5%. Nodules 1.5 cm or greater follow up at 1, 3 and 5 years recommended, for nodules 2.5 cm or greater FNA recommended. 4. ?? TI-RADS 4: Risk of malignancy 5%-20% Nodules 1.0 cm or greater follow up at 1, 2, 3 and 5 years recommended, for nodules 1.5 cm or greater FNA recommended 5. ?? TI-RADS 5: Risk of malignancy >20%. Nodules 0.5 cm or greater annual follow up for 5 years recommended, for nodules 1.0 cm or greater FNA recommended. Narrative 09/11/2023 12:54 PM CDT EXAM DESCRIPTION: ?? US THYROID REASON FOR STUDY: ?? thyroid nodule ?? TECHNIQUE: Ultrasound of the thyroid was performed with grayscale and color doppler. COMPARISON: Ultrasound-guided thyroid biopsy 04/22/2022 FINDINGS: RIGHT: The right thyroid lobe is enlarged and measures ?? 4.4 x 2.1 x 2.1 ??cm. ??The right thyroid lobe is normal in echotexture. LEFT: The left thyroid lobe measures ??3.6 x 1.5 x 1.3 ??cm. ??The left thyroid lobe is normal in echotexture. ISTHMUS: The isthmus is enlarged and measures ??1.0 ??in AP dimension. The isthmus is normal in echotexture. VASCULARITY: ??Normal. Nodules: 1. ??Right superior thyroid: 1.1 x 0.8 x 0.8 cm, not definitely seen on the comparison ultrasound. ??Solid, isoechoic, wider than tall, ill-defined margins, punctate echogenic foci. ??6 points. ??TI-RADS 4 nodule. ??Follow-up recommended. 2. ??Right middle/inferior thyroid: 2.6 x 2.0 x 2.0 cm, previously 2.8 x 1.9 x 1.8 cm. ??The nodule is solid, hypoechoic, wider than tall, smoothly marginated and with calcifications, appearing unchanged. ??The nodule was previously biopsied with benign findings. 3. ??Left inferior: 1.6 x 1.5 x 1.2 cm, previously 1.4 x 1.1 x 1.1 cm. ??Solid, hypoechoic, wider than tall, smooth margins, macro calcifications. ??5 points. ??TI-RADS 4 nodule. ??FNA is recommended. OTHER: ??No other significant finding. THIS IS AN ELECTRONICALLY VERIFIED FINAL REPORT 09/11/2023 12:52 PM - Electronically signed by ??Maykel Montano M.D. AM: AM D: ??09/11/2023 12:49 PM T: ??09/11/2023 12:52 PM Report ID: [id number] Reading Location: ??[id number] Procedure Note Maykel Montano MD - 09/11/2023 EXAM DESCRIPTION: US THYROID REASON FOR STUDY: thyroid nodule TECHNIQUE: Ultrasound of the thyroid was performed with grayscale and color doppler. COMPARISON: Ultrasound-guided thyroid biopsy 04/22/2022 FINDINGS: RIGHT: The right thyroid lobe is enlarged and measures 4.4 x 2.1 x 2.1 cm. The right thyroid lobe is normal in echotexture. LEFT: The left thyroid lobe measures 3.6 x 1.5 x 1.3 cm. The left thyroid lobe is normal in echotexture. ISTHMUS: The isthmus is enlarged and measures 1.0 in AP dimension. The isthmus is normal in echotexture. VASCULARITY: Normal. Nodules: 1. Right superior thyroid: 1.1 x 0.8 x 0.8 cm, not definitely seen on the comparison ultrasound. Solid, isoechoic, wider than tall, ill-defined margins, punctate echogenic foci. 6 points. TI-RADS 4 nodule. Follow-up recommended. 2. Right middle/inferior thyroid: 2.6 x 2.0 x 2.0 cm, previously 2.8 x 1.9 x 1.8 cm. The nodule is solid, hypoechoic, wider than tall, smoothly marginated and with calcifications, appearing unchanged. The nodule was previously biopsied with benign findings. 3. Left inferior: 1.6 x 1.5 x 1.2 cm, previously 1.4 x 1.1 x 1.1 cm. Solid, hypoechoic, wider than tall, smooth margins, macro calcifications. 5 points. TI-RADS 4 nodule. FNA is recommended. OTHER: No other significant finding. THIS IS AN ELECTRONICALLY VERIFIED FINAL REPORT 09/11/2023 12:52 PM - Electronically signed by Maykel Montano M.D. AM: AM Report ID: [id number] Reading Location: [id number] IMPRESSION: 1. 1.1 cm TI-RADS 4 nodule in the right superior thyroid. Follow-up is recommended. 2. 1.6 cm TI-RADS 4 nodule in the left inferior thyroid. FNA is recommended. 3. 2.6 cm nodule in the inferior/middle right thyroid gland is grossly unchanged and was previously biopsied with benign findings. REFERENCE: According to the ACR Thyroid Imaging, Reporting and Data System (TI-RADS): White Paper of the ACR TI-RADS Committee Aug, 2016 recommendations regarding the management of thyroid nodules are as follows: 1. TI-RADS 1: Risk of malignancy <2%, no FNA or follow up required. 2. TI-RADS 2: Risk of malignancy <2%, no FNA or follow up required. 3. TI-RADS 3: Risk of malignancy 2%-5%. Nodules 1.5 cm or greater follow up at 1, 3 and 5 years recommended, for nodules 2.5 cm or greater FNA recommended. 4. TI-RADS 4: Risk of malignancy 5%-20% Nodules 1.0 cm or greater follow up at 1, 2, 3 and 5 years recommended, for nodules 1.5 cm or greater FNA recommended 5. TI-RADS 5: Risk of malignancy >20%. Nodules 0.5 cm or greater annual follow up for 5 years recommended, for nodules 1.0 cm or greater FNA recommended. us Annel Rod MD IMG US ORDERABLES Final Result documented in this encounter Visit Diagnoses Diagnosis Thyroid nodule Nontoxic uninodular goiter documented in this encounter Additional Health Concerns Assessment Noted Time PHQ-9 Depression Total Score: 8 01/18/20 23 2:24 PM CDT documented as of this encounter Care Teams Manager Field Relationship Specialty Start Date End Date Justen Gale MD #[address] [address] PCP - General Family Medicine 10/17/17 David Roberts APRN, [facility] [address] [place], [place] [id number] Nurse Practitioner Advanced Practice Nurse 01/31/22 Annel Rod MD #[address] [phone] Consulting Physician Endocrinology 07/01/22 documented as of this encounter
--- OUTSIDE RECORDS SUMMARY | 2024-04-26 02:54 | XMS_ITS | Encounter Summary ---
Author Organization [facility] Address [address] [place] [address] Phone Care Team Providers Care Shell Reprint Operator Name Role Phone Justen Gale MD Primary Care Provider [phone] David Roberts APRN, [employer] Unavailable [phone] Annel Rod MD Unavailable Reason for Visit * Reason Onset Date Comments Fatigue 09/24/2023 Encounter Details Date Type Department Care Team (Late st Contact Info) Description 09/24/2023 [facility] [address] [place] [address] Justen Gale MD #[address] [address] Fatigue Social History Tobacco Use Types Packs/Day Years [...] encounter Miscellaneous Notes * Telephone Encounter - Mae Baires RN - 09/24/2023 4:11 PM CDT Situation (concern): Weakness Background (additional information): Symptoms started a few days ago. Assessment: Really down and irritable Feels weak and short of breath at times Anxiety Sometimes feels like she has a rapid heart rate which causes her to feel short of breath Feels unwell all over All over body aches Lightheaded at times (has to go sit down) Frequently low blood sugars (80 this AM, 144 40 minutes ago) Blood sugars seem to drop twice a day Has lost weight over the last 3 months due to ongoing stomach issues Stopped taking Gabapentin 10 days ago (unsure if this is related) Recommendation/Outcome: Agreeable to go to the ED driven by another adult. Reason for Disposition Difficulty breathing Protocols used: Weakness (Generalized) and [id number] documented in this encounter Plan of Treatment Upcoming Encounters Date Type Department Care Team (Late st Contact Info) Description 05/17/2024 2:45 PM TELESCOPE OPERATOR Office Visit [facility] - [facility]ocr[facility] [address] [place] [address] Annel Rod MD #2 [facility] [address] [place] [address] documented as of this encounter Visit Diagnoses Not on filedocumented in this encounter Additional Health Concerns Assessment Noted Time PHQ-9 Depression Total Score: 8 01/18/20 23 2:24 PM CDT documented as of this encounter Care Teams Shell Reprint Operator Relationship Specialty Start Date End Date Justen Gale MD #2 [facility] [address] [place] [address] PCP - General Family Medicine 10/17/17 David Roberts APRN, [facility] [address] [place] [address] Nurse Practitioner Advanced Practice Nurse 01/31/22 Annel Rod MD #[address] [phone] Consulting Physician Endocrinology 07/01/22 documented as of this encounter
--- OUTSIDE RECORDS SUMMARY | 2024-04-26 02:54 | XMS_ITS | Encounter Summary ---
Author Organization [facility] Address [address] [place] [address] Phone Care Team Providers Care Product Safety Tester Name Role Phone Justen Gale MD Primary Care Provider [phone] David Roberts APRN, EFFICIENCY MINER Unavailable [phone] Annel Rod MD Unavailable Reason for Referral * Consult, Test & Initiate Treatment (Less Than 4 Weeks) - Closed Specialty Diagnoses / Procedures Referred By Elyssa benavides Referred To Contact Gastroenterology Diagnoses Nausea and vomiting, unspecified vomiting type Pain of upper abdomen Pili Elkins APRN, EFFICIENCY MINER #[address] [address] Phone: tel: fax: Referral ID Status Reason Start Date Expiration Date Visits Re quested Visits Authorized [id number] Closed 09/08/2023 1 1 Scheduling Instructions Karly is being referred to [facility] or other specialist in patient's insurance network for upper gi pain, concern for gastroparesis. . See below for Karly's current medications, allergies and problem list. CURRENT MEDS: Current Outpatient Medications: albuterol 108 (90 Base) MCG/ACT Aerosol Solution, take 2 Puffs by inhalation., Disp: , Rfl: amitriptyline (ELAVIL) 25 MG Tablet, nightly. (Patient not taking: Reported on 09/08/2023), Disp: , Rfl: amoxicillin-clavulanate (AUGMENTIN) 500-125 MG Tablet, Take 1 Tablet by mouth every 8 hours., Disp: , Rfl: B-D ULTRAFINE III SHORT [...] insulin dependent, Disp: 6 Each, Rfl: 1 cyclobenzaprine (FLEXERIL) 5 MG Tablet, TAKE 1 TABLET BY MOUTH EVERY NIGHT FOR 14 DAYS (Patient not taking: Reported on 09/08/2023), Disp: 14 Tablet, Rfl: 0 dicyclomine (BENTYL) 10 MG Capsule, Take 10 mg by mouth., Disp: , Rfl: diphenhydrAMINE (BENADRYL) 25 MG Capsule, Take 25 [...] 150MG/DL MAX DAILY DOSE OF 100 UNITS (Patient taking differently: ADMINSTER 28 UNITS UNDER THE SKIN BEFORE EACH MEAL, ISF OF 1:15 OF IF> 150MG/DL MAX DAILY DOSE OF 100 UNITS), Disp: 30 mL, Rfl: 1 HYDROcodone-acetaminophen (NORCO) 7.5-325 MG Tablet, TK 1 T PO QID PRN. DO NOT FILL UNTIL 02/13/2019, Disp: , Rfl: 0 hydrOXYzine (ATARAX) 10 MG Tablet, Take 1 Tablet by mouth every 6 hours as needed for Anxiety. (Patient not taking: Reported on 09/08/2023), Disp: 30 Tablet, Rfl: 0 hydrOXYzine (ATARAX) 10 MG Tablet, , Disp: , Rfl: hydrOXYzine (ATARAX) 25 MG Tablet, Take 25 mg by mouth. (Patient not taking: Reported on 09/08/2023), Disp: , Rfl: Lantus SoloStar 100 UNIT/ML Solution Pen-injector, ADMINISTER 40 UNITS UNDER THE SKIN EVERY MORNING, Disp: 45 mL, Rfl: 1 losartan (COZAAR) 50 MG Tablet, Take 1 Tablet by mouth daily. (Patient not taking: Reported on 09/08/2023), Disp: 90 Tablet, Rfl: 3 methenamine (HIPREX) 1 GM Tablet, Take 1 g by mouth 2 times daily., Disp: , Rfl: methenamine (HIPREX) 1 GM Tablet, Take 1,000 mg by mouth. (Patient not taking: Reported on 09/08/2023), Disp: , Rfl: methocarbamol (ROBAXIN) 500 MG Tablet, Take 500 mg by mouth., Disp: , Rfl: metoprolol tartrate (LOPRESSOR) 25 MG Tablet, Take 1 Tablet by mouth 2 times daily. (Patient not taking: Reported on 09/08/2023), Disp: 180 Tablet, Rfl: 3 Misc. Devices Misc, Supply and instructions:, Disp: 1 Each, Rfl: 0 Myrbetriq 50 MG TABLET SR 24 HR, Take 50 mg by mouth daily. (Patient not taking: Reported on 09/08/2023), Disp: , Rfl: naloxone HCl (Narcan) 4 MG/0.1ML Liquid, as needed, Disp: , Rfl: nystatin [id number] UNIT/GM Powder, , Disp: , Rfl: ondansetron (Zofran) 4 MG Tablet, Take 1 Tablet by mouth every 8 hours as needed for Nausea - 1st line., Disp: 15 Tablet, Rfl: 0 ondansetron (ZOFRAN-ODT) 4 MG TABLET DISPERSIBLE, Take 4 mg by mouth. (Patient not taking: Reported on 09/08/2023), Disp: , Rfl: OneTouch Delica Lancets 33G Misc, 1 Lancet [...] mouth nightly.), Disp: 90 Tablet, Rfl: 2 tirzepatide (Mounjaro) 5 MG/0.5ML Solution Pen-injector, 5 mg by Subcutaneous route once a week., Disp: 2 mL, Rfl: 0 trospium (SANCTURA) 20 MG Tablet, Take 20 mg by mouth 2 times daily. (Patient not taking: Reported on 09/08/2023), Disp: , Rfl: No current facility-administered medications for this visit. [...] to 59.9 in adult (HCC) Thyroid nodule * Radiology Services (Routine) - Open Specialty Diagnoses / Procedures Referred By Elyssa benavides Referred To Contact Radiology Diagnoses Nausea and vomiting, unspecified vomiting type Pain of upper abdomen Procedures NM GASTRIC EMPTYING STUDY Pili Elkins APRN, CNP #[address] [address] Phone: tel: fax: Referral ID Status Reason Start Date Expiration Date Visits Re quested Visits Authorized [id number] Open 09/08/2023 1 1 Reason for Visit * Reason Comments Post-Hospital Follow-up Encounter Details Date Type Department Care Team ([facility] Contact Info) Description 09/08/2023 3:30 PM CDT Office Visit [facility] - Family Medicine [facility] [address] [place] [id number] Pili Elkins APRN, EFFICIENCY MINER [address] [id number] Nausea and vomiting, unspecified vomiting type (Primary Dx); Pain of upper abdomen; Increased urinary frequency Discharge Disposition: Discharged to home or Selfcare [...] Sign Reading Time Taken Comments Blood Pressure 134/78 09/08/2023 3:24 PM CDT Pulse 87 09/08/2023 3:24 PM CDT Temperature 36.3 ??C (97.4 ??F) 09/08/2023 3:24 PM CD T Respiratory Rate 16 09/08/2023 3:24 PM CDT Oxygen Saturation 98% 09/08/2023 3:24 PM CDT Inhaled Oxygen Concentration - - Weight 124.1 kg (273 lb 8 oz) 09/08/2023 3:24 PM CDT Height 154.9 cm (5' 1 ) 09/08/2023 3:24 PM CDT Body Mass Index 51.68 09/08/2023 3:24 PM CDT documented in this encounter Functional Status * Question Answer Date of Assessment Author Little interest or pleasure in doing things Not at all 09/08/2023 2:53 PM CDT Stephenie Davis CMA Feeling down, depressed, or hopeless Not at all 09/08/2023 2:53 PM CDT Stephenie Davis CMA * Over the past 2 weeks, how often have you been bothered by any of the following problems? Question Answer Date of Assessment Author Patient Health Questionnaire -2 Score 0 09/08/2023 2:53 PM CDT Stephenie Davis CMA documented as of this encounter Progress Notes * Stephenie Davis CMA - 09/08/2023 3:30 PM CDT Karly Marques, 68 y.o., female is here for Post-Hospital Follow-up Medication Refills: Patient reports/denies need for medication refills. Orders Pended: no Requested Prescriptions No prescriptions requested or ordered in this encounter Home Medications Medication Sig Start Date End Date Taking? Authorizing Provider albuterol 108 (90 Base) MCG/ACT Aerosol Solution take 2 Puffs by inhalation. 04/19/21 Yes Tyler Smith MD amitriptyline (ELAVIL) 25 MG Tablet nightly. Patient not taking: Reported on 09/08/2023 02/18/19 Tyler Smith MD amoxicillin-clavulanate (AUGMENTIN) 500-125 MG [...] 1 SENSOR AND WEAR FOR 14 DAYS [facility] BLOOD [facility]GAR 08/07/23 Yes Annel Rod MD Continuous Blood Gluc Sensor (FreeStyle Eileen 2 Sensor) Misc 1 Each by Does not apply route every 14 days. Change sensor every 14 days. E11.42, insulin dependent 04/14/23 Yes Annel Rod MD cyclobenzaprine (FLEXERIL) 5 MG Tablet TAKE 1 TABLET BY MOUTH EVERY NIGHT FOR 14 DAYS Patient not taking: Reported on 09/08/2023 02/07/23 Justen Gale MD dicyclomine (BENTYL) 10 MG Capsule Take [...] 150MG/DL MAX DAILY DOSE OF 100 UNITS Patient taking differently: ADMINSTER 28 UNITS UNDER THE SKIN BEFORE EACH MEAL, ISF OF 1:15 OF IF> 150MG/DL MAX DAILY DOSE OF 100 UNITS 03/07/23 Yes Annel Rod MD HYDROcodone-acetaminophen (NORCO) 7.5-325 MG Tablet TK 1 T PO QID PRN. DO NOT FILL UNTIL Yes Tyler Smith MD hydrOXYzine (ATARAX) 10 MG Tablet Take 1 Tablet by mouth every 6 hours as needed for Anxiety. Patient not taking: Reported on 09/08/2023 01/17/23 Catrina Quiñonez MD hydrOXYzine (ATARAX) 10 MG Tablet 09/14/22 Tyler Smith MD hydrOXYzine (ATARAX) 25 MG Tablet Take 25 mg by mouth. Patient not taking: Reported on 09/08/2023 06/08/22 Tyler Smith MD Lantus SoloStar 100 UNIT/ML Solution Pen-injector ADMINISTER 40 UNITS UNDER THE SKIN EVERY MORNING 06/27/23 Yes Annel Rod MD losartan (COZAAR) 50 MG Tablet Take 1 Tablet by mouth daily. Patient not taking: Reported on 09/08/2023 10/19/22 Justen Gale MD methenamine (HIPREX) 1 GM Tablet Take 1 g by mouth 2 times daily. Yes Tyler Smith MD methenamine (HIPREX) 1 GM Tablet Take 1,000 mg by mouth. Patient not taking: Reported on 09/08/2023 04/27/22 Tyler Smith MD methocarbamol (ROBAXIN) 500 MG Tablet Take 500 mg by mouth. Yes Tyler Smith MD metoprolol tartrate (LOPRESSOR) 25 MG Tablet Take 1 Tablet by mouth 2 times daily. Patient not taking: Reported on 09/08/2023 07/05/22 Pili Elkins APRN, EFFICIENCY MINER [facility] [place] [place]. Devices [facility] [place] [place] Supply and instructions: 09/09/20 Yes Justen Gale MD Myrbetriq 50 MG TABLET SR 24 HR Take 50 mg by mouth daily. Patient not taking: Reported on 09/08/2023 04/27/22 Tyler Smith MD naloxone HCl (Narcan) 4 MG/0.1ML Liquid as needed 05/13/21 Yes Tyler Smith MD nystatin [id number] UNIT/GM Powder 11/09/21 Yes Tyler Smith MD ondansetron (Zofran) 4 MG Tablet Take 1 Tablet by mouth every 8 hours as needed for Nausea - 1st line. 04/13/23 Yes Pili Elkins APRN, EFFICIENCY MINER ondansetron (ZOFRAN-ODT) 4 MG TABLET DISPERSIBLE Take 4 mg by mouth. Patient not taking: Reported on 09/08/2023 06/28/23 Tyler Smith MD OneTouch Delica Lancets 33G [facility] [place] [place] 1 Lancet by Does not apply route [...] mouth nightly. 07/06/23 Yes Justen Gale MD tirzepatide (Mounjaro) 5 MG/0.5ML Solution Pen-injector 5 mg by Subcutaneous route once a week. 08/11/23 Yes Annel Rod MD trospium (SANCTURA) 20 MG Tablet Take 20 mg by mouth 2 times daily. Patient not taking: Reported on 09/08/2023 Provider, MD Tyler There are no discontinued medications. I have reviewed the home medication list with the patient and have reconciled discrepancies. The list is accurate to the best of my knowledge. Smoking Status: Social History Tobacco Use Smoking status: Never Smokeless tobacco: Never Vaping Use Vaping Use: Never used Substance Use Topics Alcohol use: No Drug use: No Smoking Cessation Counseling Given: no Health Care Maintenance: Health Maintenance Due Topic Date Due Diabetes: Eye Exam Never done Pneumococcal Immunization (65+ years) (1 of 2 - PCV) Never done Zoster Immunization (1 of 2) Never done Hepatitis B Immunization (1 of 3 - Risk 3-dose series) Never done Respiratory Syncytial Virus (RSV) Immunization (Adult - or age 60+ years) (1 - 1-dose 60+ series) Never done Diabetes: Foot Exam 08/12/2020 SARS-COV-2 Immunization (3 2022- season) 2022 Orders Pended: no The following BPA's have been addressed with the patient today: Depression, Fall Risk, Nutrition, and Advanced Care Planning ABUSE, FUNCTIONAL, and BANG * Pili Elkins APRN, EFFICIENCY MINER - 09/08/2023 3:30 PM CDT [facility] [address] [facility] [address] Dept: [phone] Dept Loc: [phone] Loc Patient: Karly Marques : 1955 Sex: female Subjective Subjective: HPI: Karly Marques presents for Post-Hospital Follow-up . Patient presents today for hospital follow up for epigastric pain and back pain. She went to the hospital and was admitted on 08/14/2023 ED on 08/24/2023 and 09/03/2023. She reports she continues to have nausea, vomiting, and abdominal pain/pressure. She states that she is not able to eat much. The symptoms have improved but are still present. She was admitted and diagnosis thought it may be from Diabetic gastroparesis, mounjaro and cystitis. She is also having increased urination and is having accident. She does see urologist at [facility]. She stopped the mounjaro. Past Medical History Positives Diagnosis Date Breast cancer (HCC) Diabetes (HCC) DVT (deep venous thrombosis) (HCC) High blood pressure History of pulmonary embolus (PE) Hyperthyroidism Neuropathy Osteoarthritis Restless leg syndrome Sciatica Sleep apnea Spinal stenosis Current Outpatient Medications on File Prior to Visit Medication Sig Dispense Refill albuterol 108 (90 [...] days. E11.42, insulin dependent 6 Each 1 dicyclomine (BENTYL) 10 MG [...] 150MG/DL MAX DAILY DOSE OF 100 UNITS (Patient taking differently: [id number] UNITS UNDER THE SKIN BEFORE EACH MEAL, ISF OF 1:15 OF IF> 150MG/DL MAX DAILY DOSE OF 100 UNITS) 30 mL 1 HYDROcodone-acetaminophen (NORCO) 7.5-325 MG Tablet TK 1 T PO QID PRN. DO NOT FILL UNTIL Lantus SoloStar 100 UNIT/ML Solution Pen-injector ADMINISTER 40 UNITS UNDER THE SKIN EVERY MORNING 45 mL 1 methenamine (HIPREX) 1 GM Tablet Take 1 g by mouth 2 times daily. methocarbamol (ROBAXIN) 500 MG Tablet Take 500 mg by mouth. Misc. Devices [facility] [place] [place] Supply and instructions: 1 Each 0 Myrbetriq 50 MG TABLET SR 24 HR Take 50 mg by mouth daily. (Patient not taking: Reported on 09/08/2023) naloxone HCl (Narcan) 4 MG/0.1ML Liquid as needed nystatin [id number] UNIT/GM Powder ondansetron (Zofran) 4 MG Tablet Take 1 Tablet by mouth every 8 hours as needed for Nausea - 1st line. 15 Tablet 0 OneTouch Delica Lancets 33G [facility] [place] [place] 1 Lancet by Does not apply route 4 times daily. 400 Lancet 3 oxybutynin (DITROPAN XL) 15 MG TABLET SR 24 HR Take 10 mg by mouth daily. rivaroxaban (XARELTO) 20 MG Tablet Take 20 mg by mouth daily. rOPINIROLE (REQUIP) 5 MG Tablet TAKE 1 TABLET BY MOUTH EVERY NIGHT (Patient taking differently: Take 5 mg by mouth nightly.) 90 Tablet 2 No current facility-administered medications on file prior to visit. Allergies Allergen Reactions Ceftriaxone Anaphylaxis Cephalosporins Anaphylaxis [facility]ermatological Products, [facility] Hives and Itching SURGICAL TAPE Lorazepam Other [...] (see Comments) Shaky, restlessness, itching, throat swelling Past Surgical History: Procedure Laterality Date MASTECTOMY BILATERAL Bilateral 2015 BACK SURGERY 02/16/2023 [facility]; Spinal Stmulator BREAST SURGERY CHOLECYSTECTOMY LAP,INGUINAL HERNIA REPR,INITIAL Review of Systems Constitutional: Positive for appetite change. Negative for activity change, chills, diaphoresis, fatigue and fever. Respiratory: Negative for cough, shortness of breath and wheezing. Cardiovascular: Negative for chest pain and palpitations. Gastrointestinal: Positive for abdominal distention, abdominal pain, nausea and vomiting. Negative for anal bleeding, blood in stool, constipation, diarrhea and rectal pain. Genitourinary: Positive for dysuria, frequency and urgency. Negative for decreased urine volume, difficulty urinating, flank pain, hematuria, menstrual problem, pelvic pain, vaginal bleeding, vaginaldischarge and vaginal pain. Objective Objective: BP 134/78 Pulse 87 Temp 97.4 ??F (36.3 ??C) (Temporal) Resp 16 Ht 5' 1 (1.549 m) Wt 273lb 8 oz (124.1 kg) SpO2 98% BMI 51.68 kg/m?? Physical Exam Vitals and nursing note reviewed. Constitutional: General: She is not in acute distress. Appearance: Normal appearance. She is well-developed. She is obese. She is not diaphoretic. HENT: Head: Normocephalic and atraumatic. Right Ear: External ear normal. Left Ear: External ear normal. Eyes: Pupils: Pupils are equal, round, and reactive to light. Neck: Vascular: No carotid bruit. Trachea: No tracheal deviation. Cardiovascular: Rate and Rhythm: Normal rate and regular rhythm. Pulses: Normal pulses. Heart sounds: Normal heart sounds. No murmur heard. No friction rub. No gallop. Pulmonary: Effort: Pulmonary effort is normal. No respiratory distress. Breath sounds: Normal breath sounds. No stridor. No wheezing, rhonchi or rales. Abdominal: General: Bowel sounds are normal. There is no distension. Palpations: Abdomen is soft. Tenderness: There is no abdominal tenderness. There is no guarding or rebound. Hernia: No hernia is present. Musculoskeletal: General: No deformity or signs of injury. Cervical back: Normal range of motion. Right lower leg: No edema. Left lower leg: No edema. Skin: General: Skin is dry. Neurological: Mental Status: She is alert and oriented to person, place, and time. Mental status is at baseline. Psychiatric: Mood and Affect: Mood normal. Behavior: Behavior normal. Thought Content: Thought content normal. Judgment: Judgment normal. CT Abdomen Pelvis W Contrast Final Result CT Abdomen Pelvis W Contrast EXAM DESCRIPTION: CT ABDOMEN PELVIS W CONTRAST REASON FOR STUDY: Nausea/vomiting, Abdominal pain, acute, nonlocalized Abd pain with N/V past 2 weeks, dx with diverticulitis. Reports increased weakness past 2 days TECHNIQUE: CT scan of the abdomen and pelvis performed with intravenous and without oral contrast using helical scanning technique with dynamic intravenous contrast injection. Reconstructed coronal and sagittal MPR images reviewed. All images stored on PACS. Automated exposure control was used as a dose optimization technique for this examination. FINDINGS: LOWER CHEST: Sub 6 mm nodules clustered within the left lung base are grossly unchanged compared to the prior examination. These are stable dating back at least to 10/05/2022. No specific follow-up is recommended. LIVER: The liver is normal in size. Undulating surface appearance of the liver could reflect chronic underlying liver disease. No definite liver lesion is seen. GALLBLADDER: Absent. BILE DUCTS: No gross biliary ductal dilatation. SPLEEN: Spleen is normal in size. PANCREAS: The pancreas is normal in size without significant peripancreatic stranding or main ductal dilatation. ADRENALS: Normal. KIDNEYS/URINARY TRACT: The kidneys are normal in size. Symmetric in enhancement. Prominent right collecting system without overt hydronephrosis. Right renal cyst is unchanged. The urinary bladder is distended without substantial thickening or stranding. GI: Sigmoid diverticulosis is noted without CT evidence of acute diverticulitis. There is stool throughout the colon which appears nondilated. A diminutive appendix is nondilated. The terminal ileum appears normal. A 9 mm hyperdensity is noted within the lumen of the ileum which likely represents ingested material (93). The small bowel is nondilated without wall thickening or evidence of bowel obstruction. The stomach is partially distended. PERITONEUM: No free air. No ascites is seen. The patient is status post ventral abdominal hernia repair. There is scarring along the abdominal wall. No mesenteric lymphadenopathy is seen. RETROPERITONEUM: No retroperitoneal or inguinal lymphadenopathy is seen. REPRODUCTIVE: There is asymmetric prominent left adnexa, unchanged. VASCULATURE: Portal vein is patent. The aorta is normal caliber MUSCULOSKELETAL: spinal cord stimulator is noted. Chronic bilateral sacroiliitis is noted. OTHER: No other abnormality. IMPRESSION: 1. No gross CT finding to explain the patient's symptoms. 2. Indeterminate prominent left adnexa. A follow-up nonemergent outpatient pelvic ultrasound is recommended for further evaluation. 3. Additional chronic findings as above. THIS IS AN ELECTRONICALLY VERIFIED FINAL REPORT 08/24/2023 7:25 PM - Electronically signed by Giovanni Tavares M.D. Medical Decision Making: Assessment & Plan Diagnoses and all orders for this visit: Nausea and vomiting, unspecified vomiting type - NM GASTRIC EMPTYING STUDY; Future - EXTERNAL GASTROENTEROLOGY REFERRAL; Future Pain of upper abdomen - NM GASTRIC EMPTYING STUDY; Future - EXTERNAL GASTROENTEROLOGY REFERRAL; Future Increased urinary frequency Other orders - albuterol 108 (90 Base) MCG/ACT Aerosol Solution; take 2 Puffs by inhalation. - amoxicillin-clavulanate (AUGMENTIN) 500-125 MG Tablet; Take 1 Tablet by mouth every 8 hours. - dicyclomine (BENTYL) 10 MG Capsule; Take 10 mg by mouth. - gabapentin (NEURONTIN) 300 MG Capsule; Take 300 mg by mouth. - methocarbamol (ROBAXIN) 500 MG Tablet; Take 500 mg by mouth. - Discontinue: ondansetron (ZOFRAN-ODT) 4 MG TABLET DISPERSIBLE; Take 4 mg by mouth. (Patient not taking: Reported on 09/08/2023) I reviewed the patient's ED and discharge summary from admission on 08/13, and ED visits on to act 12. Also reviewed multiple labs including CBC, CMP, lipase, amylase and CT as above. Suspect gastroparesis likely aggravated by Mounjaro. Instructed her to continue to hold. Will send for gastric emptying study. Will also refer to gastroenterology for further evaluation. Continue medications as prescribed. Recommended small frequent meals to help with nausea. She also reports urinary symptoms. She does have a history of cystitis. Last urines are negative. Recommended follow-up with Urologywho she sees. Follow-up as scheduled. documented in this encounter Plan of Treatment Upcoming Encounters Date Type Department Care Team (Late st Contact Info) Description 05/17/2024 2:45 PM GEOTHERMAL OPERATING ENGINEER Office Visit [facility] [address] [place] [address] Annel Rod MD #[address] [address] Scheduled Orders Name Type Priority Associated Diagnoses Orde r Schedule NM GASTRIC EMPTYING STUDY Imaging Routine Nausea and vomiting, unspecified vomiting type Pain of upper abdomen Expected: 03/09/2024, Expires: 09/06/2024 Scheduled Referrals Name Type Priority Associated Diagnoses Order Schedule EXTERNAL GASTROENTEROLOGY REFERRAL Outpatient Referral Less Than 4 weeks Nausea and vomiting, unspecified vomiting type Pain of upper abdomen Expected: 09/08/2023, Expires: 09/07/2024 documented as of this encounter Visit Diagnoses Diagnosis Nausea and vomiting, unspecified vomiting type- Primary Pain of upper abdomen Abdominal pain, other specified site Increased urinary frequency Urinary frequency documented in this encounter Additional Health Concerns Assessment Noted Time PHQ-9 Depression Total Score: 8 01/18/20 23 2:24 PM CDT documented as of this encounter Care Teams Product Safety Tester Relationship Specialty Start Date End Date Justen Gale MD #[address] [address] PCP - General Family Medicine 10/17/17 David Roberts APRN, EFFICIENCY MINER [address] [place] [address] Nurse Practitioner Advanced Practice Nurse 01/31/22 Annel Rod MD #[address] [address] Consulting Physician Endocrinology 07/01/22 documented as of this encounter
--- OUTSIDE RECORDS SUMMARY | 2024-04-26 02:54 | XMS_ITS | Encounter Summary ---
Author Organization [facility] Care Team Providers Care Cooling Tower Technician Name Role Phone Justen Gale MD Primary Care Provider [phone] David Roberts APRN, PI/SENIOR RESEARCH ASSOCIATE Unavailable [phone] Annel Rod MD Unavailable Encounter Details Date Type Department Care Team (Latest Contact Info) Description 09/08/2023 Travel Social History Tobacco Use Types Packs/Day [...] hopeless Not at all 09/08/2023 2:53 PM CDStephenie Rose CMA * Over the past 2 weeks, how often have you been bothered by any of the following problems? Question Answer Date of Assessment Author Patient Health Questionnaire -2 Score 0 09/08/2023 2:53 PM CDT Stephenie Davis CMA documented as of this encounter Plan of Treatment Upcoming Encounters Date Type Department Care Team (Late st Contact Info) Description 05/17/2024 2:45 PM MOTORCYCLE TESTER Office Visit [facility] - Endocrinology [facility] [address] [place] [address] Annel Rod MD #[address] [place] [address] documented as of this encounter Visit Diagnoses Not on filedocumented in this encounter Additional Health Concerns Assessment Noted Time PHQ-9 Depression Total Score: 8 01/18/20 23 2:24 PM CDT documented as of this encounter Care Teams Cooling Tower Technician Relationship Specialty Start Date End Date Justen Gale MD #[address] [address] PCP - General Family Medicine 10/17/17 David Roberts APRN, PI/SENIOR RESEARCH ASSOCIATE [address] [place] [address] Nurse Practitioner Advanced Practice Nurse 01/31/22 Annel Rod MD #[address] [place] [address] Consulting Physician Endocrinology 07/01/22 documented as of this encounter
--- OUTSIDE RECORDS SUMMARY | 2024-04-26 02:54 | XMS_ITS | Encounter Summary ---
Author Organization [facility] Address [address] [place] [address] Phone Care Team Providers Care Underwriting Service Representative Name Role Phone Justen Gale MD Primary Care Provider [phone] David Roberts APRN, MOTORCOACH DRIVER Unavailable [phone] Annel Rod MD Unavailable Reason for Visit * Reason Onset Date Comments Back Pain 07/26/2023 Encounter Details Date Type Department Care Team (Late st Contact Info) Description 07/26/2023 [facility] [address] [place] [address] Justen Gale MD #[address] [address] Back Pain Social History Tobacco Use Types Packs/Day [...] Telephone Encounter - Stacy Huang RN - 07/28/2023 3:27 PM CDT Sent message to patient through my chart. * Telephone Encounter - Stacy Huang RN - 07/27/2023 12:14 PM CDT LVM for patient to call back * Telephone Encounter - Doris Arevalo RN - 07/26/2023 5:20 PM CDT Called patient and LVM to follow up that she took triage nurse advice and went to ER for evaluationregarding : (Reason for call) Chronic Back pain with radicular symptoms to left leg, thigh and lower leg. Some numbness in toes. Also experiences numbness and pain in hands. As well as new onset of loss of bladder/bowel control. * Telephone Encounter - Anton Teran RN - 07/26/2023 3:02 PM CDT Situation: (Reason for call) Chronic Back pain with radicular symptoms to left leg, thigh and lowerleg. Some numbness in toes. Also experiences numbness and pain in hands. Background: (History) Worsening symptoms since although chronic pain Takes [place] although only helps for 2-3 hours. 4 months ago back stimulator was attempted although has been shut off since there was no provided relief. Patient denied any career and technology education teacher or exercise Assessment: See Assessment Questions Below... Reason for Disposition Loss of bladder or bowel control (urine or bowel incontinence; wetting self, leaking stool) of new-onset Protocols used: Back Pain-A-OH Recommendation: (Disposition) Go to EMERGENCY DEPARTMENT Now. Caller agreeable, verbalizes understanding/reasoning of advice/recommendations. Full assessment not completed due to the emergent nature of this call. See care advice and disposition for Guideline First positive answer recorded, all responses to prior questions were negative. If symptoms increase, change or if new symptoms develop, call your HCP or call back. Recommendations were based on caller information and is not a diagnosis. Verified and reviewed all triage information with caller. * Telephone Encounter - Jayson Carvalho - 07/26/2023 2:57 PM CDT Symptom: Back Pain - Not From Injury Outcome: Warm transfer to an emergent RN NOW! Reason: Pain anywhere else on the body - leg pain too The caller accepted this outcome documented in this encounter Plan of Treatment Upcoming Encounters Date Type Department Care Team (Late st Contact Info) Description 05/17/2024 2:45 PM HANDBAG OPERATOR Office Visit [facility] - Endocrinology [facility] #2 [place] [address] Annel Rod MD #[address] [address] documented as of this encounter Visit Diagnoses Not on filedocumented in this encounter Additional Health Concerns Assessment Noted Time PHQ-9 Depression Total Score: 8 01/18/20 23 2:24 PM CDT documented as of this encounter Care Teams Underwriting Service Representative Relationship Specialty Start Date End Date Justen Gale MD #2 [facility] [address] [place] [address] PCP - General Family Medicine 10/17/17 David Roberts APRN, MOTORCOACH DRIVER #2 [place] [address] Nurse Practitioner Advanced Practice Nurse 01/31/22 Annel Rod MD #[address] [address] Consulting Physician Endocrinology 07/01/22 documented as of this encounter
--- OUTSIDE RECORDS SUMMARY | 2024-04-26 02:54 | XMS_ITS | Encounter Summary ---
Author Organization [facility] Address [address] [place] [address] Phone Care Team Providers Care Stock Shipper Name Role Phone Justen Gale MD Primary Care Provider [phone] David Roberts APRN, SCHOOL TRANSPORTATION SUPERVISOR Unavailable [phone] Annel Rod MD Unavailable Reason for Visit * Reason Onset Date Comments Medication Management 07/22/2023 Encounter Details Date Type Department Care Team (Late st Contact Info) Description 07/22/2023 Telephone [facility] Call [facility] [address] [place] [address] Annel Rod MD #[address] [address] Medication Management Social History Tobacco Use Types [...] encounter Miscellaneous Notes * Telephone Encounter - Johanna Almonte RN - 07/22/2023 7:59 PM CDT Patient calling after hours. Reports her Mounjaro prescribed by Dr. Rod has been making her sick and nauseated. She reports her blood sugar was low last night in the 50's and she called the paramedics to come assist her. Blood sugar just before this call was 185 but has been dropping to 50's-70's in recent days. Provider is non-contracted. Patient transferred to [facility] for Dr. Rod found in OneNote: [phone]. documented in this encounter Plan of Treatment Upcoming Encounters Date Type Department Care Team (Late st Contact Info) Description 05/17/2024 2:45 PM MODELING DIRECTOR Office Visit [facility] - Endocrin[facility] #[address] [place] [address] Annel Rod MD #[address] [address] documented as of this encounter Visit Diagnoses Not on filedocumented in this encounter Additional Health Concerns Assessment Noted Time PHQ-9 Depression Total Score: 8 01/18/20 23 2:24 PM CDT documented as of this encounter Care Teams Stock Shipper Relationship Specialty Start Date End Date Justen Gale MD #2 [facility] [address] [place] [address] PCP - General Family Medicine 10/17/17 David Roberts, RAT CULTURIST, SCHOOL TRANSPORTATION SUPERVISOR #2 [place] [address] Nurse Practitioner Advanced Practice Nurse 01/31/22 Annel Rod MD #[address] [address] Consulting Physician Endocrinology 07/01/22 documented as of this encounter
--- OUTSIDE RECORDS SUMMARY | 2024-04-26 02:54 | XMS_ITS | Encounter Summary ---
Author Organization [facility] Address [address] [place] [address] Phone Care Team Providers Care Rn Psychiatric Name Role Phone Justen Gale MD Primary Care Provider [phone] David Roberts APRN, HORIZONTAL BORING MILL SET UP OPERATOR Unavailable [phone] Annel Rod MD Unavailable Reason for Referral * Consult, Test & Initiate Treatment (Routine) - Closed Specialty Diagnoses / Procedures Referred By Elyssa benavides Referred To Contact Diagnoses Screening exam for skin cancer Dannielle Berg, PAC [address] [place] [address] Phone: tel: fax: Provider, Not On File [place] Referral ID Status Reason Start Date Expiration Date Visits Re quested Visits Authorized [id number] Closed 11/01/2023 1 1 Scheduling Instructions Karly is being referred to [facility] in [place] or other specialist in patient's insurance network for Evaluation of a mole/skin cancer screening. Already scheduled December 27, 2023. See below for Karly's current medications, allergies and problem list. CURRENT MEDS: Current Outpatient Medications: albuterol 108 (90 Base) MCG/ACT Aerosol Solution, take 2 Puffs by inhalation., Disp: , Rfl: amoxicillin-clavulanate (AUGMENTIN) 500-125 MG Tablet, Take 1 Tablet by mouth every 8 hours. (Patient not taking: Reported on 10/06/2023), Disp: , Rfl: B-D ULTRAFINE III SHORT [...] BLOOD SUGAR, Disp: 6 Each, Rfl: 1 dicyclomine (BENTYL) 10 MG Capsule, Take 10 mg by mouth. (Patient not taking: Reported on 10/06/2023), Disp: , Rfl: diphenhydrAMINE (BENADRYL) 25 MG [...] MAX DAILY DOSE OF 100 UNITS (Patient not taking: Reported on 10/06/2023), Disp: 30 mL, Rfl: 1 HYDROcodone-acetaminophen (NORCO) 7.5-325 MG Tablet, TK 1 T PO QID PRN. DO NOT FILL UNTIL 02/13/2019, Disp: , Rfl: 0 Lantus SoloStar 100 UNIT/ML Solution Pen-injector, ADMINISTER 40 UNITS UNDER THE SKIN EVERY MORNING (Patient taking differently: 32 Units. ADMINISTER 40 UNITS UNDER THE SKIN EVERY MORNING), Disp: 45 mL, Rfl: 1 methenamine (HIPREX) 1 GM Tablet, Take 1 g by mouth 2 times daily., Disp: , Rfl: methocarbamol (ROBAXIN) 500 MG Tablet, Take 500 mg by mouth. (Patient not taking: Reported on 10/06/2023), Disp: , Rfl: Misc. Devices [facility], Supply and instructions:, Disp: 1 Each, Rfl: 0 naloxone HCl (Narcan) 4 MG/0.1ML Liquid, as needed, Disp: , Rfl: nystatin [id number] UNIT/GM Powder, , Disp: , Rfl: ondansetron [...] for Visit * Reason Onset Date Comments Referral 11/01/2023 dermatology Encounter Details Date Type Department Care Team (Late st Contact Info) Description 11/01/2023 Telephone [facility] Call [facility] [address] [place] [address] Justen Gale MD #[address] [address] Referral (dermatology) Social History Tobacco Use Types Packs/Day Years [...] Encounter - Minal Lechuga RN - 11/01/2023 12:36 PM CDT Situation: patient is requesting a referral to (speciality) Dermatology Background: Referral requested for ( be specific on symptoms from patient) Mole/skin cancer screen Action: Does the patient have a specific provider they would like to see? If yes include name/location Distinctive dermatology [facility]. Has the patient been seen by this speciality in the past? No Appointment Dec 27, 2023. Recommendation: Request routed to provider for review Caller has been given the referral center information ( M-F 8am-4:30pm [phone] option 7 ) to call to check status of referral once the order has been signed. documented in this encounter Plan of Treatment Upcoming Encounters Date Type Department Care Team (Late st Contact Info) Description 05/17/2024 2:45 PM TECHNICAL MANAGER CHEMICAL PLANT Office Visit [facility] - [facility] - [place] [address] [place] [address] Annel Rod MD #[address] [phone] Scheduled Referrals Name Type Priority Associated Diagnoses Order Schedule EXTERNAL DERMATOLOGY REFERRAL Outpatient Referral Routine Screening exam for skin cancer Expected: 11/01/2023, Expires: 10/31/2024 documented as of this encounter Visit Diagnoses Diagnosis Screening exam for skin cancer- Primary Screening for malignant neoplasm of the skin documented in this encounter Additional Health Concerns Assessment Noted Time PHQ-9 Depression Total Score: 8 01/18/20 23 2:24 PM CDT documented as of this encounter Care Teams Rn Psychiatric Relationship Specialty Start Date End Date Justen Gale MD #2 [facility] [address] [place] [address] PCP - General Family Medicine 10/17/17 David Roberts APRN, HORIZONTAL BORING MILL SET UP OPERATOR #[address] [place] [address] Nurse Practitioner Advanced Practice Nurse 01/31/22 Annel Rod MD #2 [facility] [address] [place] [address] Consulting Physician Endocrinology 07/01/22 documented as of this encounter
--- OUTSIDE RECORDS SUMMARY | 2024-04-26 02:54 | XMS_ITS | Encounter Summary ---
Author Organization [facility] Address [address] [place] [address] Phone Care Team Providers Care Animal Husbandry Professor Name Role Phone Justen Gale MD Primary Care Provider [phone] David Roberts APRN, O AND M SUPERVISOR Unavailable [phone] Annel Rod MD Unavailable Reason for Visit * Reason Onset Date Comments Advice Only 07/07/2023 Tongue Pain 07/07/2023 Vaginal Itching 07/07/2023 Thrush 07/07/2023 Encounter Details Date Type Department Care Team (Late st Contact Info) Description 07/07/2023 Nurse Triage [facility] Call Center [address] [place] [address] Justen Gale MD #[address] [address] Advice Only; Tongue Pain; Vaginal Itching; Thrush Social History Tobacco Use Types Packs/Day Years [...] Encounter - Stacy Huang RN - 07/07/2023 12:15 PM CDT See other encounter 07-07-23 * Telephone Encounter - eFrnanda Radford RN - 07/07/2023 11:45 AM CDT SITUATION: itching on hands and feet, tongue irritation. Vaginal itching. BACKGROUND: Strep throat, multiple antibiotics, to clear strep. Completed antibiotic 4-5 days ago. Office visit 06/27/2023 for strep. ASSESSMENT: Symptom Description / Location: Patient is reporting slight vaginal itching, She is also have tongue irritation, and itching to herhands, feet, and arms. All this started after antibiotics she completed the antibiotics. She feels she likely is having a yeast issues. Pain (0-10): Tongue hurts. Temp: denies Treatment / Response: none Disposition: See in office office today or tomorrow. No appointments available. She is asking for Justen Gale MD to call something into there pharmacy. Pharmacy on file is correct. Please advise. RECOMMENDATION: See care advice and disposition for Guideline First positive answer recorded, all responses to prior questions were negative. If symptoms increase, change or if new symptoms develop, call your HCP or call back. Recommendations were based on caller information and is not a diagnosis. Verified and reviewed all triage information with caller. Reason for Disposition MODERATE-SEVERE itching (i.e., interferes with school, work, or sleep) Protocols used: Vaginal Whhnwemj-U-BB * Telephone Encounter - Gogo Guillaume - 07/07/2023 11:41 AM CDT Symptoms: Vaginal Symptoms - Not Bleeding, Mouth Pain - Not From Injury Outcome: Schedule an appointment at earliest convenience. Reason: Caller denied all higher acuity questions The caller accepted this outcome Caller denied: * Severe pelvic pain now * Can't swallow saliva (drooling) * Any pelvic pain * * Vaginal swelling * Age less than 1 year old * Fever * Foul-smelling vaginal discharge * Trouble drinking documented in this encounter Plan of Treatment Upcoming Encounters Date Type Department Care Team (Late st Contact Info) Description 05/17/2024 2:45 PM TRACER CLERK Office Visit [facility] - Endocrinology - [place] #[address] [place] [address] Annel Rod MD #[address] [address] documented as of this encounter Visit Diagnoses Not on filedocumented in this encounter Additional Health Concerns Assessment Noted Time PHQ-9 Depression Total Score: 8 01/18/20 23 2:24 PM CDT documented as of this encounter Care Teams Animal Husbandry Professor Relationship Specialty Start Date End Date Justen Gale MD #[address] [address] PCP - General Family Medicine 10/17/17 David Roberts, SERVICE VEHICLE OPERATOR, O AND M SUPERVISOR [address] [place] [address] Nurse Practitioner Advanced Practice Nurse 01/31/22 Annel Rod MD #[address] [place] [address] Consulting Physician Endocrinology 07/01/22 documented as of this encounter
--- OUTSIDE RECORDS SUMMARY | 2024-04-26 02:54 | XMS_ITS | Encounter Summary ---
Author Organization [facility] Address [address] [place] [address] Phone Care Team Providers Care Houseman Name Role Phone Justen Gale MD Primary Care Provider [phone] David Roberts APRN, RIG HAND Unavailable [phone] Annel Rod MD Unavailable Reason for Visit * Reason Comments Medication Refill Encounter Details Date Type Department Care Team (Late st Contact Info) Description 07/06/2023 Refill [facility] - Family Medicine [facility] #2 [place] [address] Justen Gale MD #[address] [address] Medication Refill Social History Tobacco Use Types [...] encounter Miscellaneous Notes * Telephone Encounter - Marlys Anderson RN - 07/06/2023 11:33 AM CDT Medication(s) refilled and signed per [facility] Chronic Medication Refill Standing Order for Pediatricand Adult Patients. Requested Prescriptions Pending Prescriptions Disp Refills rOPINIROLE (REQUIP) 5 MG Tablet [Pharmacy Med Name: ROPINIROLE 5MG TABLETS] 90 Tablet 2 Sig: TAKE 1 TABLET BY MOUTH EVERY NIGHT Antiparkinson Dopaminergics and COMT Protocol Passed - 07/06/2023 7:09 AM Passed - Visit with relevant provider in the past 9 months or upcoming 90 days Recent Visits Date Type Provider Dept 06/27/23 Office Visit Justen Gale MD [facility] [place] 01/17/23 Office Visit [facility] Showing recent visits within past 270 days and meeting all other requirements Future Appointments No visits were found meeting these conditions. Showing future appointments within next 90 days and meeting all other requirements Passed - Blood pressure on record in past 12 months Clinician-entered: BP Readings from Last 3 Encounters: 06/27/23 (!) 142/92 05/30/23 128/78 01/17/23 128/86 Patient-entered: No data recorded documented in this encounter Plan of Treatment Upcoming Encounters Date Type Department Care Team (Late st Contact Info) Description 05/17/2024 2:45 PM PICK UP Office Visit [facility] - Endocrinology - [place] [address] [place] [phone] Annel Rod MD #[address] [place] [address] documented as of this encounter Visit Diagnoses Not on filedocumented in this encounter Additional Health Concerns Assessment Noted Time PHQ-9 Depression Total Score: 8 01/18/20 23 2:24 PM CDT documented as of this encounter Care Teams Houseman Relationship Specialty Start Date End Date Justen Gale MD #2 [facility] [address] [place] [address] PCP - General Family Medicine 10/17/17 David Roberts APRN, RIG HAND #[address] [place] [address] Nurse Practitioner Advanced Practice Nurse 01/31/22 Annel Rod MD #2 [facility] [address] [place] [address] Consulting Physician Endocrinology 07/01/22 documented as of this encounter
--- OUTSIDE RECORDS SUMMARY | 2024-04-26 02:54 | XMS_ITS | Encounter Summary ---
Author Organization [facility] Address [address] [place] [address] Phone Care Team Providers Care Trial Court Justice Name Role Phone Justen Gale MD Primary Care Provider [phone] David Roberts APRN, UNDERGROUND MINE MACHINERY MECHANIC Unavailable [phone] Annel Rod MD Unavailable Reason for Visit * Reason Onset Date Comments Erroneous Encounter - Disregard 08/03/2023 Encounter Details Date Type Department Care Team (Late st Contact Info) Description 08/03/2023 Telephone [facility] [address] [place] [address] Justen Gale MD #[address] [address] Erroneous Encounter - Disregard Social History Tobacco Use Types Packs/Day Years [...] Encounter - Mary Crowe RN - 08/03/2023 11:42 AM CDT Opened in error documented in this encounter Plan of Treatment Upcoming Encounters Date Type Department Care Team (Late st Contact Info) Description 05/17/2024 2:45 PM CONSUMER AFFAIRS MANAGER Office Visit [facility] - [facility]ology - [place] [address] [place] [address] Annel Rod MD #[address] [address] documented as of this encounter Visit Diagnoses Not on filedocumented in this encounter Additional Health Concerns Assessment Noted Time PHQ-9 Depression Total Score: 8 01/18/20 23 2:24 PM CDT documented as of this encounter Care Teams Trial Court Justice Relationship Specialty Start Date End Date Justen Gale MD #[address] [place] [address] PCP - General Family Medicine 10/17/17 David Roberts, SOLAR SALES CONSULTANT, UNDERGROUND MINE MACHINERY MECHANIC #2 [place] [address] Nurse Practitioner Advanced Practice Nurse 01/31/22 Annel Rod MD #[address] [place] [address] Consulting Physician Endocrinology 07/01/22 documented as of this encounter
--- OUTSIDE RECORDS SUMMARY | 2024-04-26 02:54 | XMS_ITS | Encounter Summary ---
Author Organization [facility] Address [address] [place] [address] Phone Care Team Providers Care Kitchenwhere Maker Name Role Phone Justen Gale MD Primary Care Provider [phone] David Roberts APRN, CARDIAC/VASCULAR SONOGRAPHER Unavailable [phone] Annel Rod MD Unavailable Reason for Visit * Reason Comments Medication Refill Encounter Details Date Type Department Care Team (Late st Contact Info) Description 08/07/2023 Refill [facility] - [facility] - [place] #2 [place] [address] Annel Rod MD #[address] [address] Medication Refill Social History Tobacco [...] Telephone Encounter - Jennifer Wang, RN - 08/07/2023 11:09 AM CDT Medication(s) refilled and signed per [facility] Chronic Medication Refill Standing Order for Pediatric and Adult Patients. documented in this encounter Plan of Treatment Upcoming Encounters Date Type Department Care Team (Late st Contact Info) Description 05/17/2024 2:45 PM CHILD DEVELOPMENT PROFESSOR Office Visit [facility] - Endocrinology [facility] #2 [place] [address] Annel Rod MD #[address] [address] documented as of this encounter Visit Diagnoses Not on filedocumented in this encounter Additional Health Concerns Assessment Noted Time PHQ-9 Depression Total Score: 8 01/18/20 23 2:24 PM CDT documented as of this encounter Care Teams Kitchenwhere Maker Relationship Specialty Start Date End Date Justen Gale MD #[address] [address] PCP - General Family Medicine 10/17/17 David Roberts APRN, CARDIAC/VASCULAR SONOGRAPHER #2 [place] [address] Nurse Practitioner Advanced Practice Nurse 01/31/22 Annel Rod MD #[address] [address] Consulting Physician Endocrinology 07/01/22 documented as of this encounter
--- OUTSIDE RECORDS SUMMARY | 2024-04-26 02:54 | XMS_ITS | Encounter Summary ---
Author Organization [facility] Address [address] [place] [address] Phone Care Team Providers Care Children'S Tutor Nursery Name Role Phone Justen Gale MD Primary Care Provider [phone] David Roberts APRN, RADIATOR TESTER Unavailable [phone] Annel Rod MD Unavailable Reason for Visit * Reason Onset Date Comments Leg Injury 09/28/2023 Encounter Details Date Type Department Care Team (Late st Contact Info) Description 09/28/2023 [facility] [address] [place] [address] Justen Gale MD #[address] [address] Leg Injury Social History Tobacco Use Types Packs/Day Years [...] encounter Miscellaneous Notes * Telephone Encounter - Brady Subramanian RN - 10/07/2023 2:41 PM CDT SITUATION: Follow up call to leg injury BACKGROUND: Patient is calling back because she now has a knot on her leg where she injured it. ASSESSMENT: lump the size of a golf ball very tender to touch RECOMMENDATION: Reason for Disposition Taking Coumadin (warfarin) or other strong blood thinner, or known bleeding disorder (e.g., thrombocytopenia) (Exception: Very small, painless bruise at heparin injection site.) Protocols used: Glehifj-D-KJ Verbalized understanding of all care advice given and advised to be evaluated in the urgent care. 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 Denies hitting her head Denies any other injuries States she hit her leg pretty hard Patient was advised to be seen in the ED based on her history of blood clots, and current blood thinner usage Caller/patient verbalized understanding and was agreeable to recommendation/plan of care RECOMMENDATION: See care advice and disposition for Guideline First positive answer recorded, all responses to prior questions were negative. If symptoms increase, change or if new symptoms develop, call your HCP or call back. Recommendations were based on caller information and is not a diagnosis. Verified and reviewed all triage information with caller. Reason for Disposition Patient sounds very sick or weak to the triager Protocols used: Leg Pain-A-AH documented in this encounter Plan of Treatment Upcoming Encounters Date Type Department Care Team (Late st Contact Info) Description 05/17/2024 2:45 PM STONE CLEANER Office Visit [facility] - [facility] #2 [place] [address] Annel Rod MD #[address] [address] documented as of this encounter Visit Diagnoses Not on filedocumented in this encounter Additional Health Concerns Assessment Noted Time PHQ-9 Depression Total Score: 8 01/18/20 23 2:24 PM CDT documented as of this encounter Care Teams [facility] T[facility] Nursery Relationship Specialty Start Date End Date Justen Gale MD #[address] [address] PCP - General Family Medicine 10/17/17 David Roberts APRN, RADIATOR TESTER #2 [place] [address] Nurse Practitioner Advanced Practice Nurse 01/31/22 Annel Rod MD #[address] [address] Consulting Physician Endocrinology 07/01/22 documented as of this encounter
--- OUTSIDE RECORDS SUMMARY | 2024-04-26 02:54 | XMS_ITS | Encounter Summary ---
Author Organization [facility] Address [address] [place] [address] Phone Care Team Providers Care Fountain Server Name Role Phone Justen Gale MD Primary Care Provider [phone] David Roberts APRN, CUTTER WET MACHINE Unavailable [phone] Annel Rod MD Unavailable Reason for Visit * Reason Onset Date Comments Head Injury 10/23/2023 Encounter Details Date Type Department Care Team (Late st Contact Info) Description 10/23/2023 [facility] [address] [place] [address] Justen Gale MD #[address] [address] Head Injury Social History Tobacco Use Types Packs/Day [...] encounter Miscellaneous Notes * Telephone Encounter - Maura Don RN - 10/23/2023 2:16 AM CDT S: Head injury B: On blood thinners A: Onset:10/22 Symptoms:On xarleto. About the size of qaurter. No neuro symptoms at this time R: Advised to go to ED. Patient in agreement Discussed care advice (per guideline) for symptoms reported and worsening symptoms to call back foror seek emergent care for. Caller(s) verbalized understanding and agrees. See care advice and disposition for guideline. First positive answer recorded, all responses to prior questions were negative. If symptoms increase, change or if new symptoms develop, call your PCP or call back. Recommendation based on caller information and is not a diagnosis. Caller verbalized understanding of information given and denies further questions. Reason for Disposition Taking Coumadin (warfarin) or other strong blood thinner, or known bleeding disorder (e.g., thrombocytopenia) Protocols used: Head Injury-A-AH documented in this encounter Plan of Treatment Upcoming Encounters Date Type Department Care Team (Late st Contact Info) Description 05/17/2024 2:45 PM CLINICAL RN [facility] - [facility] - [place] [address] [place] [address] Annel Rod MD #2 [facility] [address] [place] [address] documented as of this encounter Visit Diagnoses Not on filedocumented in this encounter Additional Health Concerns Assessment Noted Time PHQ-9 Depression Total Score: 8 01/18/20 23 2:24 PM CDT documented as of this encounter Care Teams Fountain Server Relationship Specialty Start Date End Date Justen Gale MD #2 [facility] [address] [place] [address] PCP - General Family Medicine 10/17/17 David Roberts APRN, NETTA #2 [place] [address] Nurse Practitioner Advanced Practice Nurse 01/31/22 Annel Rod MD #2 [facility] [address] [place] [address] Consulting Physician Endocrinology 07/01/22 documented as of this encounter
--- OUTSIDE RECORDS SUMMARY | 2024-04-26 02:54 | XMS_ITS | Encounter Summary ---
Author Organization [facility] Address [address] [place] [address] Phone Care Team Providers Care Search Manager Name Role Phone Justen Gale MD Primary Care Provider [phone] David Roberts APRN, AUTOMOBILE RELOCATION ENGINEER Unavailable [phone] Annel Rod MD Unavailable Reason for Visit * Reason Onset Date Comments Referral 08/07/2023 Encounter Details Date Type Department Care Team (Late st Contact Info) Description 08/07/2023 Telephone [facility] [address] [place] [address] Justen Gale MD #[address] [address] Referral Social History Tobacco Use Types Packs/Day Years [...] Miscellaneous Notes * Telephone Encounter - Jane Eaton RN - 08/07/2023 12:05 PM CDT Situation: Referral- External Hematology/Oncology Referral Background: Patient calling [facility] [facility] [employer] and was transferred to this sound technician. Assessment: Patient states she had a referral expiration warning on her mychart and she didn't know what this meant. Recommendation: Advised patient that PCP sent referral to her oncologist so that she could continue to see them forher follow ups and that this referral doesn't until 02/22/2024. Patient verbalized understanding and agrees. documented in this encounter Plan of Treatment Upcoming Encounters Date Type Department Care Team (Late st Contact Info) Description 05/17/2024 2:45 PM MATERIALS ENGINEER Office Visit [facility] - Endocrinology [facility] #2 [place] [address] Annel Rod MD #2 [facility] [address] [place] [address] documented as of this encounter Visit Diagnoses Not on filedocumented in this encounter Additional Health Concerns Assessment Noted Time PHQ-9 Depression Total Score: 8 01/18/20 23 2:24 PM CDT documented as of this encounter Care Teams Search Manager Relationship Specialty Start Date End Date Justen Gale MD #2 [facility] [address] [place] [address] PCP - General Family Medicine 10/17/17 David Roberts, SAFETY TECHNICIAN, AUTOMOBILE RELOCATION ENGINEER #2 [place] [address] Nurse Practitioner Advanced Practice Nurse 01/31/22 Annel Rod MD #[address] [address] Consulting Physician Endocrinology 07/01/22 documented as of this encounter
--- OUTSIDE RECORDS SUMMARY | 2024-04-26 02:54 | XMS_ITS | Encounter Summary ---
Author Organization [facility] Address [address] [place] [address] Phone Care Team Providers Care Condominium Manager Name Role Phone Justen Gale MD Primary Care Provider [phone] David Roberts APRN, CARDIAC SPECIALIST Unavailable [phone] Annel Rod MD Unavailable Reason for Visit * Reason Onset Date Comments Dizziness 08/24/2023 Encounter Details Date Type Department Care Team (Late st Contact Info) Description 08/24/2023 [facility] [address] [place] [address] Justen Gale MD #[address] [address] Dizziness Social History Tobacco Use Types Packs/Day Years [...] Miscellaneous Notes * Telephone Encounter - Fabiola Alfred V RN - 08/24/2023 11:43 AM CDT SITUATION: New-onset lightheadedness, weakness and MILD breathing difficulties; Drinking very little AND has signs of dehydration BACKGROUND: Sick for a while now Per chart review, Recently admitted to [facility] 08/14/23 - 08/18/23 Diagnosis acute cystitis and diverticulitis History of Type 2 diabetes mellitus, HTN, DVT, P.E, Breast cancer, dyspnea, generalized weakness, obesity ASSESSMENT: She says she has called before about stomach problems (pain, bloating, vomiting) Went to hospital thereafter, felt better while in hospital Completed course of antibiotic treatment given for UTI Discharged and say she still does not feel like she is getting better Urinary symptoms are better pressure feeling , still has frequency though, says with UTIs in past feels better but never seems to get the UTI away, seems to reoccur. History of sepsis from UTI last year Chronic low back pain, has pain stimulator in place, says it is not working, needs removed in near future Stomach pain still but not as bad as it was , tender to touch, mild, fluctuates when eating something is moderate Lightheadedness (denies vertigo) and weakness, new-onset Losing balance when walking and standing, started leaning forward Able to stand Not able to be as active as usual Not drinking a whole lot, sipping, and suspects she could be dehydrated Continues to urinate, dark yellow in color often recently Very nauseous, loss of appetite, no dry heaving or vomiting Starts shaking feeling really sick when trying to eat Today feeling short of breath, a tiny bit only when active, new-onset No diarrhea or bleeding from anywhere No suspect of fever or chest pain Glucose level today 170, 3 days ago glucose was 76 but did not last after eating something, glucoselevels ranging 145-170 First positive answer recorded. All responses to prior questions were negative. RECOMMENDATION (disposition): Go to ED now. Caller is agreeable and verbalizes understanding of care advice/disposition given? Yes All Patient Appointments Provider Department Dept Phone 09/08/2023 2:00 PM [email or web address]; [email or web address] Ultrasound [phone] 09/08/2023 3:30 PM LucilaMillie balderramae [facility] - Family Medicine - [place] [phone] 10/12/2023 3:15 PM Annel Rod [facility] Endocrinology - [place] [phone] See care advice and disposition provided, per guideline. Recommendation based on caller information only and is not a diagnosis. Verified and reviewed all triage information with the caller. Educated the caller in-depth on when to call us back and/or seek urgent/emergent evaluation. Reason for Disposition Drinking very little and has signs of dehydration (e.g., no urine > 12 hours, very dry mouth, very lightheaded) Protocols used: Jsucqhhnd-A-SC * Telephone Encounter - Dulce Celestin - 08/24/2023 11:41 AM CDT Symptoms: Abdominal Pain - Female - Not , Urine Symptoms, Nausea But No Vomiting, Weakness,Lethargic (Tired) Outcome: Warm transfer to an emergent RN NOW! Reason: Trouble walking The caller accepted this outcome documented in this encounter Plan of Treatment Upcoming Encounters Date Type Department Care Team (Late st Contact Info) Description 05/17/2024 2:45 PM KNOCKER OFF Office Visit [facility] Medical [facility] - Endocrinology - [place] #[address] [place] [address] Annel Rod MD [address] [address] documented as of this encounter Visit Diagnoses Not on filedocumented in this encounter Additional Health Concerns Assessment Noted Time PHQ-9 Depression Total Score: 8 01/18/20 23 2:24 PM CDT documented as of this encounter Care Teams Condominium Manager Relationship Specialty Start Date End Date Justen Gale MD #2 [facility] [address] [place] [address] PCP - General Family Medicine 10/17/17 David Roberts, MEDICAL TECHNOLOGIST MICROBIOLOGY, CARDIAC SPECIALIST #2 [place] [address] Nurse Practitioner Advanced Practice Nurse 01/31/22 Annel Rod MD #2 [facility] [address] [place] [address] Consulting Physician Endocrinology 07/01/22 documented as of this encounter
--- OUTSIDE RECORDS SUMMARY | 2024-04-26 02:54 | XMS_ITS | Encounter Summary ---
Author Organization [facility] Address [address] [place] [address] Phone Care Team Providers Care Political Theory Professor Name Role Phone Justen Gale MD Primary Care Provider [phone] David Roberts APRN, INVESTIGATION SPECIALIST Unavailable [phone] Annel Rod MD Unavailable Reason for Visit * Reason Onset Date Comments Low Blood Sugar 10/12/2023 Shortness of Breath 10/12/2023 Encounter Details Date Type Department Care Team (Late st Contact Info) Description 10/12/2023 [facility] [address] [place] [address] Justen Gale MD #[address] [address] Low Blood Sugar; Shortness of Breath Social History Tobacco Use [...] encounter Miscellaneous Notes * Telephone Encounter - Odalis Moss RN - 10/12/2023 10:51 PM CDT SITUATION: low blood sugar, trouble breathing BACKGROUND: noticed symptoms in the last month Sees Dr. Rod ASSESSMENT: Symptom Description / Location: blood sugar is currently 200 Nausea Last low blood sugar was around 2pm which was 58 Slight shortness of breath-mild Feels weak and shaky Overall not feeling well Hx of blood clots Losing weight, has lost 35 pounds Pain (0-10): denies Temp: denies Treatment / Response: denies LMP / / : No LMP recorded. Patient is postmenopausal. RECOMMENDATION: Advised to be seen in the emergency room. Patient verbalized understanding. See care advice and disposition for Guideline First positive answer recorded, all responses to prior questions were negative. If symptoms increase, change or if new symptoms develop, call your HCP or call back. Recommendations were based on caller information and is not a diagnosis. Verified and reviewed all triage information with caller. Reason for Disposition History of prior blood clot in leg or lungs (i.e., deep vein thrombosis, pulmonary embolism) Protocols used: Breathing Wyuncgfzsx-Q-CU documented in this encounter Plan of Treatment Upcoming Encounters Date Type Department Care Team (Late st Contact Info) Description 05/17/2024 2:45 PM STRIPER MACHINE Office Visit [facility] - [facility] - [place] #[address] [place] [address] Annel Rod MD #[address] [id number] documented as of this encounter Visit Diagnoses Not on filedocumented in this encounter Additional Health Concerns Assessment Noted Time PHQ-9 Depression Total Score: 8 01/18/20 23 2:24 PM CDT documented as of this encounter Care Teams Political Theory Professor Relationship Specialty Start Date End Date Justen Gale MD #2 [facility] [address] [place] [address] PCP - General Family Medicine 10/17/17 David Roberts, SUPERVISOR SINTERING PLANT, INVESTIGATION SPECIALIST #2 [place] [address] Nurse Practitioner Advanced Practice Nurse 01/31/22 Annel Rod MD #2 [facility] [address] [place] [address] Consulting Physician Endocrinology 07/01/22 documented as of this encounter
--- OUTSIDE RECORDS SUMMARY | 2024-04-26 02:54 | XMS_ITS | Encounter Summary ---
Author Organization [facility] Address [address] [place] [address] Phone Care Team Providers Care Bakery Chef Name Role Phone Justen Gale MD Primary Care Provider [phone] David Roberts APRN, HOSPICE CLINICAL SUPERVISOR Unavailable [phone] Annel Rod MD Unavailable Reason for Visit * Reason Onset Date Comments Drug Overdose 10/06/2023 Encounter Details Date Type Department Care Team (Late st Contact Info) Description 10/06/2023 [facility] [address] [place] [address] Justen Gale MD #[address] [address] Drug Overdose Social History Tobacco Use Types Packs/Day Years [...] encounter Miscellaneous Notes * Telephone Encounter - Maris Huitron RN - 10/06/2023 12:36 AM CDT SITUATION: Pt calling about double dose of prescribed medication BACKGROUND: History of Hypertension, Diabetes type 2, syncope, speech impairment, LUL, dyspnea, low back pain sciatica, constipation, restless leg syndrome, DVT, spinal stenosis, malignant neoplasm of left breast ASSESSMENT: Pt took blood thinner medication twice 1100 hrs at Xarelto as usual 0000 hrs took Xarelto again accidentally Denies difficulty breathing, nausea, dizziness or any physical symptoms at this time. Allergies, medications verified. [address] Laboy called via cell. VM left. [address] Laboy called via home. left. 0120 hrs POC called back and advised for pt to skip Xarelto for , Monday and resume again on Monday as normal. Pt to watch for signs of bleeding and if any present go to ED for evaluation. 0125 hrs. Pt contacted and advised of recommendations. Patient verbalized understanding and agrees with plan of care RECOMMENDATION: See care advice and disposition for Guideline First positive answer recorded, all responses to prior questions were negative. If symptoms increase, change or if new symptoms develop, call your HCP or call back. Recommendations were based on caller information and is not a diagnosis. Verified and reviewed all triage information with caller. Reason for Disposition [1] DOUBLE DOSE (an extra dose or lesser amount) of prescription drug AND [2] NO symptoms (Exception: A double dose of antibiotics.) Protocols used: Idoroblsz-D-CI documented in this encounter Plan of Treatment Upcoming Encounters Date Type Department Care Team (Late st Contact Info) Description 05/17/2024 2:45 PM CHAIRMAN & CO FOUNDER Office Visit [facility] - [facility]inology - [place] #2 [place] [address] Annel Rod MD #[address] [address] documented as of this encounter Visit Diagnoses Not on filedocumented in this encounter Additional Health Concerns Assessment Noted Time PHQ-9 Depression Total Score: 8 01/18/20 23 2:24 PM CDT documented as of this encounter Care Teams Bakery Chef Relationship Specialty Start Date End Date Justen Gale MD #[address] [address] PCP - General Family Medicine 10/17/17 David Roberts APRN, HOSPICE CLINICAL SUPERVISOR #2 [place] [address] Nurse Practitioner Advanced Practice Nurse 01/31/22 Annel Rod MD #[address] [address] Consulting Physician Endocrinology 07/01/22 documented as of this encounter
--- OUTSIDE RECORDS SUMMARY | 2024-04-26 02:54 | XMS_ITS | Encounter Summary ---
Author Organization [facility] Address [address] [place] [address] Phone Care Team Providers Care Sports Cartoonist Name Role Phone Justen Gale MD Primary Care Provider [phone] David Roberts APRN, RN CONCURRENT REVIEW Unavailable [phone] Annel Rod MD Unavailable Encounter Details Date Type Department Care Team (Late st Contact Info) Description 10/11/2023 Telephone [facility] Ultrasound [address] [place] [address] Annel Rod MD #[address] [address] Social History Tobacco Use Types Packs/Day Years [...] encounter Miscellaneous Notes * Telephone Encounter - Shanthi Grant RN - 10/11/2023 1:24 PM CDT Attempted to call to schedule thyroid biopsy Left message documented in this encounter Plan of Treatment Upcoming Encounters Date Type Department Care Team (Late st Contact Info) Description 05/17/2024 2:[address] SUPERVISOR Office Visit [facility] - Endocrinology - [place] #2 [place] [address] Annel Rod MD #[address] [address] documented as of this encounter Visit Diagnoses Not on filedocumented in this encounter Additional Health Concerns Assessment Noted Time PHQ-9 Depression Total Score: 8 01/18/20 23 2:24 PM CDT documented as of this encounter Care Teams Sports Cartoonist Relationship Specialty Start Date End Date Justen Gale MD #[address] [address] PCP - General Family Medicine 10/17/17 David Roberts APRN, RN CONCURRENT REVIEW #2 [place] [address] Nurse Practitioner Advanced Practice Nurse 01/31/22 Annel Rod MD #[address] [address] Consulting Physician Endocrinology 07/01/22 documented as of this encounter
--- OUTSIDE RECORDS SUMMARY | 2024-04-26 02:54 | XMS_ITS | Encounter Summary ---
Author Organization [facility] Address [address] [place] [address] Phone Care Team Providers Care Adjunct Business Instructor Name Role Phone Justen Gale MD Primary Care Provider [phone] David Roberts APRN, PET FEEDER Unavailable [phone] Annel Rod MD Unavailable Reason for Visit * Reason Onset Date Comments Advice Only 07/12/2023 Encounter Details Date Type Department Care Team (Late st Contact Info) Description 07/12/2023 Telephone [facility] [address] [place] [address] Justen Gale MD #[address] [address] Advice Only Social History Tobacco Use Types [...] encounter Miscellaneous Notes * Telephone Encounter - Ann Moss - 07/12/2023 10:07 AM CDT RFC: [facility] - Pharmacist with [facility], calling today requesting confirmation or denial if the patient is currently taking a Statin medication for diabetes, and if not, stating they would liketo submit a recommendation for this. Verified office fax number with her. Please call [facility] - [phone] (relationship to patient other) back regarding above referenced patient. Patient's Provider is Justen Gale MD . documented in this encounter Plan of Treatment Upcoming Encounters Date Type Department Care Team (Late st Contact Info) Description 05/17/2024 2:45 PM MECHANICAL CAR CHECKER Office Visit [facility] - Endocrin[facility] #2 [place] [address] Annel Rod MD #[address] [address] documented as of this encounter Visit Diagnoses Not on filedocumented in this encounter Additional Health Concerns Assessment Noted Time PHQ-9 Depression Total Score: 8 01/18/20 23 2:24 PM CDT documented as of this encounter Care Teams Adjunct Business Instructor Relationship Specialty Start Date End Date Justen Gale MD #[address] [address] PCP - General Family Medicine 10/17/17 David Roberts, TOYS INSPECTOR, PET FEEDER #2 [place] [address] Nurse Practitioner Advanced Practice Nurse 01/31/22 Annel Rod MD [address] [address] Consulting Physician Endocrinology 07/01/22 documented as of this encounter
--- OUTSIDE RECORDS SUMMARY | 2024-04-26 02:55 | XMS_ITS | Encounter Summary ---
Author Organization [facility] Address [address] [place] [address] Phone Care Team Providers Care Electronics Assembler Name Role Phone Justen Gale MD Primary Care Provider [phone] David Roberts APRN, TAPE CONTROLLED MACHINE STITCHER Unavailable [phone] Annel Rod MD Unavailable Reason for Visit * Reason Comments Medication Refill Encounter Details Date Type Department Care Team (Late st Contact Info) Description 02/07/2023 Refill [facility] - [facility] #2 [place] [address] Pili Elkins APRN, TAPE CONTROLLED MACHINE STITCHER #[address] [address] Medication Refill Social History Tobacco [...] suspected to have Coronavirus/COVID-19? No / Unsure 01/17/2023 2:15 PM CDT documented as of this encounter Miscellaneous Notes * Telephone Encounter - Marlys Anderson RN - 02/07/2023 4:05 PM CDT Name from pharmacy: HYDROCHLOROTHIAZIDE 12.5MG CAPSULES Will file in chart as: hydroCHLOROthiazide (MICROZIDE) 12.5 MG Capsule The original prescription was discontinued on 10/19/2022 by Justen Gale MD documented in this encounter Plan of Treatment Upcoming Encounters Date Type Department Care Team (Late st Contact Info) Description 05/17/2024 2:45 PM SUPERVISOR CASE LOADING Office Visit [facility] - Endocrinology [facility] #2 [place] [address] Annel Rod MD #2 [facility] [address] [place] [address] documented as of this encounter Visit Diagnoses Diagnosis Essential hypertension Unspecified essential hypertension documented in this encounter Additional Health Concerns Assessment Noted Time PHQ-9 Depression Total Score: 8 01/18/20 23 2:24 PM CDT documented as of this encounter Care Teams Electronics Assembler Relationship Specialty Start Date End Date Justen Gale MD #2 [facility] [address] [place] [address] PCP - General Family Medicine 10/17/17 David Roberts APRN, TAPE CONTROLLED MACHINE STITCHER #2 [place] [address] Nurse Practitioner Advanced Practice Nurse 01/31/22 Annel Rod MD #[address] [address] Consulting Physician Endocrinology 07/01/22 documented as of this encounter
--- OUTSIDE RECORDS SUMMARY | 2024-04-26 02:55 | XMS_ITS | Encounter Summary ---
Author Organization [facility] Address [address] [place] [address] Phone Care Team Providers Care Strap Making Machine Operator Name Role Phone Justen Gale MD Primary Care Provider [phone] David Roberts APRN, SITE RELIABILITY ENGINEER Unavailable [phone] Annel Rod MD Unavailable Reason for Visit * Reason Comments Medication Refill Encounter Details Date Type Department Care Team (Late st Contact Info) Description 03/02/2023 Refill [facility] - Family [facility] #2 [place] [phone] Justen Gale MD #[address] [address] Medication Refill Social History Tobacco Use Types [...] encounter Miscellaneous Notes * Telephone Encounter - Tamika Villarreal RN - 03/02/2023 8:51 AM SPECTROGRAPHER Medication failed the protocol, provider to review and approve the medication order if appropriate. Requested Prescriptions Pending Prescriptions Disp Refills Lantus SoloStar 100 UNIT/ML Solution Pen-injector [Pharmacy Med Name: LANTUS SOLOSTAR PEN INJ 3ML] 45 mL 1 Sig: ADMINISTER 50 UNITS UNDER THE SKIN EVERY MORNING Not Delegated - Insulin Protocol Failed - 03/02/2023 3:59 AM Failed - This refill cannot be delegated Passed - Visit with relevant provider in past 12 months or upcoming 90 days Recent Visits Date Type Provider Dept 01/17/23 Office Visit Catrina Quiñonez MD [facility] 09/16/22 Office Visit Pili Elkins APRN, NETTA [facility] [place] 07/05/22 Office Visit Pili Elkins APRN, NETTA [facility] [place] 05/02/22 Office Visit Justen Gale MD [facility] 03/03/22 Office Visit Pili Elkins APRN, NETTA [facility] Showing recent visits within past 365 days and meeting all other requirements Future Appointments No visits were found meeting these conditions. Showing future appointments within next 90 days and meeting all other requirements TROGRAPHER documented in this encounter Plan of Treatment Upcoming Encounters Date Type Department Care Team (Late st Contact Info) Description 05/17/2024 2:45 PM SPECTROGRAPHER Office Visit [facility] - End[facility]ology - [place] [address] [place] [phone] Annel Rod MD #[address] [phone] documented as of this encounter Visit Diagnoses Not on filedocumented in this encounter Additional Health Concerns Assessment Noted Time PHQ-9 Depression Total Score: 8 01/18/20 23 2:24 PM CDT documented as of this encounter Care Teams Strap Making Machine Operator Relationship Specialty Start Date End Date Justen Gale MD #2 [facility] [address] [place] [address] PCP - General Family Medicine 10/17/17 David Roberts, CONCRETE PUMP OPERATOR, SITE RELIABILITY ENGINEER #2 [place] [address] Nurse Practitioner Advanced Practice Nurse 01/31/22 Annel Rod MD #2 [facility] [address] [place] [address] Consulting Physician Endocrinology 07/01/22 documented as of this encounter
--- OUTSIDE RECORDS SUMMARY | 2024-04-26 02:55 | XMS_ITS | Encounter Summary ---
Author Organization [facility] Address [address] [place] [address] Phone Care Team Providers Care Combine Driver Name Role Phone Justen Gale MD Primary Care Provider [phone] David Roberts APRN, BRICK CHIMNEY BUILDER Unavailable [phone] Annel Rod MD Unavailable Reason for Visit * Reason Comments Medication Refill Encounter Details Date Type Department Care Team (Late st Contact Info) Description 03/05/2023 Refill [facility] - [place] #2 [place] [address] Annel Rod MD #[address] [address] Medication Refill Social History Tobacco [...] Telephone Encounter - Annel Rod MD - 03/07/2023 12:42 AM CST Rx sent TARY SOURCE OPERATIONS OFFICER * Telephone Encounter - Jennifer Wang, RN - 03/06/2023 9:15 AM MILITARY SOURCE OPERATIONS OFFICER Requested Prescriptions Pending Prescriptions Disp Refills ??? HumaLOG KwikPen 100 UNIT/ML Solution Pen-injector [Pharmacy Med Name: HUMALOG 100 U/ML KWIK PENINJ 3ML] 30 mL 1 Sig: INJECT 22 UNITS UNDER SKIN BEFORE EACH MEAL.; ISF OF 1:15 OF IF>150MG/DL; MAX DAILY DOSE OF100 UNITS Next appt: 04/11/2023 TARY SOURCE OPERATIONS OFFICER documented in this encounter Plan of Treatment Upcoming Encounters Date Type Department Care Team (Late st Contact Info) Description 05/17/2024 2:45 PM MILITARY SOURCE OPERATIONS OFFICER Office Visit [facility] #2 [place] [address] Annel Rod MD #[address] [address] documented as of this encounter Visit Diagnoses Not on filedocumented in this encounter Additional Health Concerns Assessment Noted Time PHQ-9 Depression Total Score: 8 01/18/20 23 2:24 PM CDT documented as of this encounter Care Teams Combine Driver Relationship Specialty Start Date End Date Justen Gale MD #2 [facility] [address] [place] [address] PCP - General Family Medicine 10/17/17 David Roberts APRN, NETTA #[address] [facility] [address] Nurse Practitioner Advanced Practice Nurse 01/31/22 Annel Rod MD #[address] [address] Consulting Physician Endocrinology 07/01/22 documented as of this encounter
--- OUTSIDE RECORDS SUMMARY | 2024-04-26 02:55 | XMS_ITS | Encounter Summary ---
Author Organization [facility] Care Team Providers Care Supplier Diversity Director Name Role Phone Justen Gale MD Primary Care Provider [phone] David Roberts APRN, CNP Unavailable [phone] Annel Rod MD Unavailable Encounter Details Date Type Department Care Team (Latest Contact Info) Description 01/17/2023 Travel Social History Tobacco Use Types Packs/Day [...] pleasure in doing things Not at all 01/17/2023 2:24 PM CDT Deborah Yao Feeling down, depressed, or hopeless Not at all 01/17/2023 2:24 PM CDT Deborah Yao * Over the past 2 weeks, how often have you been bothered by any of the following problems? Question Answer Date of Assessment Author Patient Health Questionnaire -2 Score 0 01/17/2023 2:24 PM CDT Deborah Yao documented as of this encounter Plan of Treatment Upcoming Encounters Date Type Department Care Team (Late st Contact Info) Description 05/17/2024 2:45 PM BROACHING MACHINE OPERATOR Office [facility] - [facility] #[address] [place] [address] Annel Rod MD #[address] [phone] documented as of this encounter Visit Diagnoses Not on filedocumented in this encounter Additional Health Concerns Assessment Noted Time PHQ-9 Depression Total Score: 8 01/18/20 23 2:24 PM CDT documented as of this encounter Care Teams Supplier Diversity Director Relationship Specialty Start Date End Date Justen Gale MD #2 [facility] [address] [place] [address] PCP - General Family Medicine 10/17/17 David Roberts, AUTO DEALER, SENIOR NUCLEAR MEDICINE TECHNOLOGIST #2 [place] [address] Nurse Practitioner Advanced Practice Nurse 01/31/22 Annel Rod MD #[address] [phone] Consulting Physician Endocrinology 07/01/22 documented as of this encounter
--- OUTSIDE RECORDS SUMMARY | 2024-04-26 02:55 | XMS_ITS | Encounter Summary ---
Author Organization [facility] Address [address] [place] [address] Phone Care Team Providers Care Card Room Manager Name Role Phone Justen Gale MD Primary Care Provider [phone] David Roberts APRN, AUDIOPROSTHOLOGIST Unavailable [phone] Annel Rod MD Unavailable Reason for Visit * Reason Onset Date Comments Back Pain 05/28/2023 Extremity Weakness 05/28/2023 Encounter Details Date Type Department Care Team (Late st Contact Info) Description 05/28/2023 Nurse Triage [facility] [address] [place] [address] Justen Gale MD #[address] [address] Back Pain; Extremity Weakness Social History Tobacco Use Types Packs/Day Years [...] encounter Miscellaneous Notes * Telephone Encounter - Zulema Davis, RN - 05/28/2023 1:06 PM CST SITUATION: Patient calling, having sever back pain, leg pain, and weakness in bilateral arms. BACKGROUND: Patient states she had a back stimulator for pain. ASSESSMENT: Patient in more pain now then she was before she got the back stimulator. Having pain in left side and trouble walking. Patent was in hospital for pain control 05/15 Symptom Description / Location: When patient holds arm up they are shaking and weak. Pain in back upper and lower and sometimes she feels it in chest and legs Most of the pain is on left side. Weakness in both arms Hard to get up and walk around Not urinating as much as she normally does but states she is emptying bladder Hands feel numb. Patient unable to make fist. Arms will start shaking Pain (0-10): severe Temp: unsure Treatment / Response: [place] helps but she only gets to three hours before pain kicks in Disposition: Call 911 now Patient verbalized understanding, This RN told patient I would call her back to make sure she was able to get through. This RN called patient back she stated she was discussing it with and they live 4 minutes away. Patient/caller refuses disposition of: call 911 Reiterated the importance of following recommendation as symptoms could indicate a serious or life-threatening situation Patient response:agrees to go to ED, driven to ED by: my Advised to bring cell phone and stop to call 911 for worsening symptoms during travel RECOMMENDATION: See care advice and disposition for Guideline First positive answer recorded, all responses to prior questions were negative. If symptoms increase, change or if new symptoms develop, call your HCP or call back. Recommendations were based on caller information and is not a diagnosis. Verified and reviewed all triage information with caller. Reason for Disposition ??? [1] SEVERE weakness (i.e., unable to walk or barely able to walk, requires support) AND [2] new-onset or worsening Protocols used: NEUROLOGIC [id number] NER OPERATOR documented in this encounter Plan of Treatment Upcoming Encounters Date Type Department Care Team (Late st Contact Info) Description 05/17/2024 2:45 PM SPINNER OPERATOR Office Visit [facility] - Endocrinology [facility] #2 [place] [address] Annel Rod MD #[address] [address] documented as of this encounter Visit Diagnoses Not on filedocumented in this encounter Additional Health Concerns Assessment Noted Time PHQ-9 Depression Total Score: 8 01/18/20 23 2:24 PM CDT documented as of this encounter Care Teams Card Room Manager Relationship Specialty Start Date End Date Justen Gale MD #[address] [address] PCP - General Family Medicine 10/17/17 David Roberts APRN, AUDIOPROSTHOLOGIST #2 [place] [address] Nurse Practitioner Advanced Practice Nurse 01/31/22 Annel Rod MD #[address] [address] Consulting Physician Endocrinology 07/01/22 documented as of this encounter
--- OUTSIDE RECORDS SUMMARY | 2024-04-26 02:55 | XMS_ITS | Encounter Summary ---
Author Organization [facility] Address [address] [place] [address] Phone Care Team Providers Care Sludge Filtration Operator Name Role Phone Justen Gale MD Primary Care Provider [phone] David Roberts APRN, TUBE ROOM SUPERVISOR Unavailable [phone] Annel Rod MD Unavailable Reason for Visit * Reason Onset Date Comments Dizziness 01/25/2023 Seizure 01/25/2023 Encounter Details Date Type Department Care Team (Late st Contact Info) Description 01/25/2023 Nurse Triage [facility] [address] [place] [address] Justen Gale MD #[address] [address] Dizziness; Seizure Social History Tobacco Use Types Packs/Day Years [...] encounter Miscellaneous Notes * Telephone Encounter - Damon Mullins RN - 01/25/2023 8:29 PM CDT SITUATION: Shaking / Dizzy spells BACKGROUND: Ongoing on for 1 day ASSESSMENT: Symptom Description / Location: [place] lips a lot Back of head hurts Patient states she has lost 20lbs in past 5 weeks Patient states she has these spells where she gets really hot, nauseous, and starts feeling dizzy, right side of body shakes, Feels short of breath - when they happen, states she can't talk when these happen Patient lives with daughter Has not checked blood pressure Blood sugar has not been low been in the 100s Symptoms get worse at night Denies: vomiting Pain: 6/10 Temp/Route: WNL I+O: Urinating WNL, too nauseous to eat Treatment / Response: denies RECOMMENDATION: See care advice and disposition for Guideline Be seen in the ED. Patient agreeable Allergies, medications, and pharmacy verified. Assisted services addressed; none needed. Patient verbalized understanding, and agreeable to recommendations. First positive answer recorded, all responses to prior questions were negative. If symptoms increase, change or if new symptoms develop, call your HCP or call back. Recommendations were based on caller information and is not a diagnosis. Verified and reviewed all triage information with caller. Reason for Disposition ??? [1] New-onset muscle jerks AND [2] unexplained AND [3] 3 or more times/day Protocols used: MUSCLE JERKS - TICS - [id number] documented in this encounter Plan of Treatment Upcoming Encounters Date Type Department Care Team (Late st Contact Info) Description 05/17/2024 2:45 PM SURVEY RESEARCH CENTER DIRECTOR Office Visit [facility] - Endocrinology - [place] #[address] [place] [address] Annel Rod MD #[address] [address] documented as of this encounter Visit Diagnoses Not on filedocumented in this encounter Additional Health Concerns Assessment Noted Time PHQ-9 Depression Total Score: 8 01/18/20 23 2:24 PM CDT documented as of this encounter Care Teams Sludge Filtration Operator Relationship Specialty Start Date End Date Justen Gale MD #[address] [address] PCP - General Family Medicine 10/17/17 David Roberts, SPOOL CLEANER HAND, TUBE ROOM SUPERVISOR #[address] [place] [address] Nurse Practitioner Advanced Practice Nurse 01/31/22 Annel Rod MD #[address] [address] Consulting Physician Endocrinology 07/01/22 documented as of this encounter
--- OUTSIDE RECORDS SUMMARY | 2024-04-26 02:55 | XMS_ITS | Encounter Summary ---
Author Organization [facility] Address [address] [place] [address] Phone Care Team Providers Care Tax Record Clerk Name Role Phone Justen Gale MD Primary Care Provider [phone] David Roberts APRN, FLOTATION TENDER Unavailable [phone] Annel Rod MD Unavailable Reason for Referral * Consult, Test & Initiate Treatment (Routine) - Closed Specialty Diagnoses / Procedures Referred By Elyssa t Referred To Contact Diagnoses Recurrent streptococcal pharyngitis Justen Gale MD #2 [facility] [address] [place] [address] Phone: tel: fax: Marce Yates, DO [address] [facility] [address] [facility] [address] [place] [address] Phone: tel: fax: Referral ID Status Reason Start Date Expiration Date Visits Re quested Visits Authorized [id number] Closed 07/01/2023 1 1 Scheduling Instructions Karly is being referred to dr looney or other specialist in patient's insurance network for recurrent pharyngitis . See below for Karly's current medications, allergies and problem list. CURRENT MEDS: Current Outpatient Medications: amitriptyline (ELAVIL) 25 MG Tablet, nightly., Disp: , Rfl: B-D ULTRAFINE III SHORT [...] TABLET BY MOUTH EVERY NIGHT FOR 14 DAYS, Disp: 14 Tablet, Rfl: 0 diphenhydrAMINE (BENADRYL) 25 MG Capsule, Take 25 mg by mouth every 6 hours as needed., Disp: , Rfl: exemestane (AROMASIN) 25 MG Tablet, Take 25 mg by mouth daily., Disp: , Rfl: Glucose Blood (ONE TOUCH [...] mouth every 6 hours as needed for Anxiety., Disp: 30 Tablet, Rfl: 0 hydrOXYzine (ATARAX) 10 MG Tablet, , Disp: , Rfl: hydrOXYzine (ATARAX) 25 MG Tablet, Take 25 mg by mouth., Disp: , Rfl: Lantus SoloStar 100 UNIT/ML Solution Pen-injector, ADMINISTER 40 UNITS UNDER THE SKIN EVERY MORNING, Disp: 45 mL, Rfl: 1 losartan (COZAAR) 50 MG Tablet, Take 1 Tablet by mouth daily., Disp: 90 Tablet, Rfl: 3 methenamine (HIPREX) 1 GM Tablet, Take 1,000 mg by mouth., Disp: , Rfl: methenamine (HIPREX) 1 GM Tablet, Take 1 g by mouth 2 times daily., Disp: , Rfl: metoprolol tartrate (LOPRESSOR) 25 MG Tablet, Take 1 Tablet by mouth 2 times daily., Disp: 180 Tablet, Rfl: 3 Misc. Devices Misc, Supply and instructions:, Disp: 1 Each, Rfl: 0 Myrbetriq 50 MG TABLET SR 24 HR, Take 50 mg by mouth daily., Disp: , Rfl: naloxone HCl (Narcan) 4 MG/0.1ML Liquid, as needed, Disp: , Rfl: nystatin 424646 UNIT/GM Powder, , Disp: , Rfl: ondansetron (Zofran) 4 MG Tablet, Take 1 Tablet by mouth every 8 hours as needed for Nausea - 1st line., Disp: 15 Tablet, Rfl: 0 OneTouch Delica Lancets 33G Misc, 1 Lancet by Does not apply route 4 times daily., Disp: 400 Lancet, Rfl: 3 oxybutynin (DITROPAN-XL) 10 MG TABLET SR 24 HR, Take 10 mg by mouth in the morning and at bedtime., Disp: , Rfl: rivaroxaban (XARELTO) 20 MG Tablet, Take 20 mg by mouth daily., Disp: , Rfl: rOPINIROLE (REQUIP) 5 MG Tablet, TAKE 1 TABLET BY MOUTH EVERY NIGHT, Disp: 90 Tablet, Rfl: 2 tirzepatide (Mounjaro) 2.5 MG/0.5ML Solution Pen-injector, 2.5 mg by Subcutaneous route once a week., Disp: 2 mL, Rfl: 0 trospium (SANCTURA) 20 MG Tablet, Take 20 mg by mouth 2 times daily., Disp: , Rfl: No current facility-administered medications [...] to 59.9 in adult (HCC) Thyroid nodule T ATTENDANT Encounter Details Date Type Department Care Team (Late st Contact Info) Description 07/01/2023 Telephone [facility] - [facility] #[address] [place] [address] Justen Gale MD #2 [facility] [address] [place] [address] Social History Tobacco Use Types Packs/Day Years [...] Telephone Encounter - Justen Gale MD - 07/01/2023 9:41 AM CST done T ATTENDANT documented in this encounter Plan of Treatment Upcoming Encounters Date Type Department Care Team (Late Contact Info) Description 05/17/2024 2:45 PM VALET ATTENDANT Office Visit [facility] - Endocrinology - [place] #2 [place] [address] Annel Rod MD #[address] [address] Scheduled Referrals Name Type Priority Associated Diagnoses Orde r Schedule EXTERNAL ENT REFERRAL Outpatient Referral Routine Recurrent streptococcal pharyngitis Expected: 07/01/2023, Expires: 06/30/2024 documented as of this encounter Visit Diagnoses Diagnosis Recurrent streptococcal pharyngitis- Primary documented in this encounter Additional Health Concerns Assessment Noted Time PHQ-9 Depression Total Score: 8 01/18/20 23 2:24 PM CDT documented as of this encounter Care Teams Tax Record Clerk Relationship Specialty Start Date End Date Justen Gale MD #2 [facility] [address] [place] [address] PCP - General Family Medicine 10/17/17 David Roberts, LABEL PINKER, FLOTATION TENDER #2 [place] [address] Nurse Practitioner Advanced Practice Nurse 01/31/22 Annel Rod MD #[address] [address] Consulting Physician Endocrinology 07/01/22 documented as of this encounter
--- OUTSIDE RECORDS SUMMARY | 2024-04-26 02:55 | XMS_ITS | Encounter Summary ---
Author Organization [facility] [employer] Care Team Providers Care Returns Processor Name Role Phone Justen Gale MD Primary Care Provider [phone] David Roberts APRN, [facility] Unavailable [phone] Annel Rod MD Unavailable Encounter Details Date Type Department Care Team (Latest Contact Info) Description 06/27/2023 Travel Social History Tobacco Use Types Packs/Day [...] st Contact Info) Description 05/17/2024 2:45 PM STATOR CONNECTOR Office Visit [facility] Medical Group - Endocrinology [facility] [address] [place] [id number] Annel Rod MD #[address] [address] documented as of this encounter Visit Diagnoses Not on filedocumented in this encounter Additional Health Concerns Assessment Noted Time PHQ-9 Depression Total Score: 8 01/18/20 23 2:24 PM CDT documented as of this encounter Care Teams Returns Processor Relationship Specialty Start Date End Date Justen Gale MD #[address] [address] PCP - General Family Medicine 10/17/17 David Roberts APRN, [facility] [address] [place] [address] Nurse Practitioner Advanced Practice Nurse 01/31/22 Annel Rod MD #[address] [address] Consulting Physician Endocrinology 07/01/22 documented as of this encounter
--- OUTSIDE RECORDS SUMMARY | 2024-04-26 02:55 | XMS_ITS | Encounter Summary ---
Author Organization [facility] Address [address] [place] [address] Phone Care Team Providers Care Intervention Manager Name Role Phone Justen Gale MD Primary Care Provider [phone] David Roberts APRN, FIRST ASSIST Unavailable [phone] Annel Rod MD Unavailable Reason for Visit * Reason Onset Date Comments Advice Only 05/05/2023 Generalized Weakness 05/05/2023 Shortness of Breath 05/05/2023 Encounter Details Date Type Department Care Team (Late st Contact Info) Description 05/05/2023 [facility] [address] [place] [address] Justen Gale MD #[address] [address] Advice Only; Generalized Weakness; Shortness of Breath Social History Tobacco Use [...] encounter Miscellaneous Notes * Telephone Encounter - Kiesha Byrd RN - 05/05/2023 11:55 AM CST SITUATION: Shortness of breath, weakness BACKGROUND: Recent strep infection, seen in ED ASSESSMENT: Reports: Shortness of breath constant Weakness Positive blood cultures nausea Denies: Severe difficulty breathing Wheezing Chest pain RECOMMENDATION: See care advice and disposition for Guideline First positive answer recorded, all responses to prior questions were negative. If symptoms increase, change or if new symptoms develop, call your HCP or call back. Recommendations were based on caller information and is not a diagnosis. Verified and reviewed all triage information with caller. Disposition: Go to EMERGENCY DEPARTMENT now. Patient notified. Patient verbalized understanding. Assistive devices, Medications, allergies, and pharmacy not reviewed due to emergent situation. Reason for Disposition ??? MODERATE difficulty breathing (e.g., speaks in phrases, SOB even at rest, pulse 100-120) of new-onset or worse than normal Protocols used: BREATHING [id number] T BUYER * Telephone Encounter - Astrid Parrish - 05/05/2023 11:54 AM WHEAT BUYER Symptoms: Breathing Trouble, Lethargic (Tired), Weakness Outcome: Warm transfer to an emergent RN NOW! Reason: Trouble walking The caller accepted this outcome T BUYER documented in this encounter Plan of Treatment Upcoming Encounters Date Type Department Care Team (Late st Contact Info) Description 05/17/2024 2:45 PM WHEAT BUYER Office Visit [facility] - [facility] - [place] [address] [place] [address] Annel Rod MD #2 [facility] [address] [place] [address] documented as of this encounter Visit Diagnoses Not on filedocumented in this encounter Additional Health Concerns Assessment Noted Time PHQ-9 Depression Total Score: 8 01/18/20 23 2:24 PM CDT documented as of this encounter Care Teams Intervention Manager Relationship Specialty Start Date End Date Justen Gale MD #[address] [address] PCP - General Family Medicine 10/17/17 David Roberts APRN, FIRST ASSIST [address] [place] [address] Nurse Practitioner Advanced Practice Nurse 01/31/22 Annel Rod MD #[address] [address] Consulting Physician Endocrinology 07/01/22 documented as of this encounter
--- OUTSIDE RECORDS SUMMARY | 2024-04-26 02:55 | XMS_ITS | Encounter Summary ---
Author Organization [facility] Address [address] [place] [address] Phone Care Team Providers Care Windows Software Developer Name Role Phone Justen Gale MD Primary Care Provider [phone] David Roberts APRN, INVESTMENT BANKING ANALYST Unavailable [phone] Annel Rod MD Unavailable Reason for Visit * Reason Onset Date Comments Results 05/01/2023 Encounter Details Date Type Department Care Team (Late st Contact Info) Description 05/01/2023 Telephone [facility] [address] [place] [address] Justen Gale MD #[address] [address] Results Social History Tobacco Use Types Packs/Day [...] Telephone Encounter - Stacy Huang RN - 05/03/2023 2:21 PM CST Called and spoke with patient to let her know that you are not going to do anything right now, She understood that if she starts to feel worse to seek medical attention. She stated that she understood ING DIRECTOR * Telephone Encounter - Stacy Huang RN - 05/03/2023 1:27 PM CST Called and spoke with patient and she stated that she is feeling better, She stated that Ajay gave her amoxicillin for strep throat. She is still tired and a little short of breath with activity. She does understand that if she getsworse to call the office. Did you want to give her something else? ING DIRECTOR * Telephone Encounter - Stacy Huang RN - 05/02/2023 9:21 AM CST LVM for patient to call back. ING DIRECTOR * Telephone Encounter - Justen Gale MD - 05/01/2023 9:20 AM CST Please call. Blood cultures at [facility] show bacteria in your blood How are you feeling? Fevers?chills? Cough? ING DIRECTOR documented in this encounter Plan of Treatment Upcoming Encounters Date Type Department Care Team (Late st Contact Info) Description 05/17/2024 2:45 PM PRICING DIRECTOR Office Visit [facility] - Endocrinology - [place] [address] [place] [phone] Annel Rod MD #[address] [address] documented as of this encounter Visit Diagnoses Not on filedocumented in this encounter Additional Health Concerns Assessment Noted Time PHQ-9 Depression Total Score: 8 01/18/20 23 2:24 PM CDT documented as of this encounter Care Teams Windows Software Developer Relationship Specialty Start Date End Date Justen Gale MD #[address] [address] PCP - General Family Medicine 10/17/17 David Roberts APRN, [facility] [address] [place] [address] Nurse Practitioner Advanced Practice Nurse 01/31/22 Annel Rod MD #[address] [address] Consulting Physician Endocrinology 07/01/22 documented as of this encounter
--- OUTSIDE RECORDS SUMMARY | 2024-04-26 02:55 | XMS_ITS | Encounter Summary ---
Author Organization [facility] Address [address] [place] [address] Phone Care Team Providers Care Manager Database Administration Name Role Phone Justen Gale MD Primary Care Provider [phone] David Roberts APRN, PHOTOLITHOGRAPHIC STRIPPER Unavailable [phone] Annel Rod MD Unavailable Reason for Visit * Reason Onset Date Comments Sore Throat 04/28/2023 Encounter Details Date Type Department Care Team (Late st Contact Info) Description 04/28/2023 [facility] [address] [place] [address] Justen Gale MD #[address] [address] Sore Throat Social History Tobacco Use Types Packs/Day Years [...] Telephone Encounter - Mae Baires RN - 04/28/2023 8:39 PM CST Situation (concern): Sore throat Background (additional information): Patient was in the ED yearlier today for sore throat and diagnosed with Strep. Started having difficulty breathing about an hour ago. Assessment: Difficulty swallowing Difficulty breathing Can't get a deep breath in Difficulty talking due to throat swelling Recommendation/Outcome: Patient/caller refuses disposition of: call 911 Reiterated the importance of following recommendation as symptoms could indicate a serious or life-threatening situation Patient response:agrees to go to ED, driven to ED by: Advised to bring cell phone and stop to call 911 for worsening symptoms during travel Reason for Disposition ??? SEVERE difficulty breathing (e.g., struggling for each breath, speaks in single words, stridor) Protocols used: STREP THROAT INFECTION ON ANTIBIOTIC FOLLOW-UP CALL-A- BANDING OFF BEARER documented in this encounter Plan of Treatment Upcoming Encounters Date Type Department Care Team (Late st Contact Info) Description 05/17/2024 2:45 PM EDGE BANDING OFF BEARER Office Visit [facility] - Endocrinology [facility] [place] [address] [place] [address] Annel Rod MD [address]2 [facility] [address] [place] [address] documented as of this encounter Visit Diagnoses Not on filedocumented in this encounter Additional Health Concerns Assessment Noted Time PHQ-9 Depression Total Score: 8 01/18/20 23 2:24 PM CDT documented as of this encounter Care Teams Manager Database Administration Relationship Specialty Start Date End Date Justen Gale MD #2 [facility] [address] [place] [address] PCP - General Family Medicine 10/17/17 David Roberts APRN, PHOTOLITHOGRAPHIC STRIPPER [address] [place] [address] Nurse Practitioner Advanced Practice Nurse 01/31/22 Annel Rod MD [address] [address] [address] Consulting Physician Endocrinology 07/01/22 documented as of this encounter
--- OUTSIDE RECORDS SUMMARY | 2024-04-26 02:55 | XMS_ITS | Encounter Summary ---
Author Organization [facility] Address [address] [place] [address] Phone Care Team Providers Care High [employer] Art Teacher Name Role Phone Justen Gale MD Primary Care Provider [phone] David Roberts APRN, STOGIE PACKER Unavailable [phone] Annel Rod MD Unavailable Reason for Visit * Reason Onset Date Comments Medication Refill 04/14/2023 Encounter Details Date Type Department Care Team (Late st Contact Info) Description 04/14/2023 MyChart RX Renewal [facility] - Endocrinology [facility] [address] [place] [address] Annel Rod MD #[address] [address] Medication Renewal Request Social History Tobacco Use Types Packs/Day [...] st Contact Info) Description 05/17/2024 2:45 PM SKIN FORMER Office Visit [facility] - Endocrinology [facility] [address] [place] [address] Annel Rod MD #[address] [address] documented as of this encounter Visit Diagnoses Not on filedocumented in this encounter Additional Health Concerns Assessment Noted Time PHQ-9 Depression Total Score: 8 01/18/20 23 2:24 PM CDT documented as of this encounter Care Teams High [employer] Art Teacher Relationship Specialty Start Date End Date Justen Gale MD #[address] [address] PCP - General Family Medicine 10/17/17 David Roberts APRN, STOGIE PACKER [address] [place] [address] Nurse Practitioner Advanced Practice Nurse 01/31/22 Annel Rod MD #[address] [address] Consulting Physician Endocrinology 07/01/22 documented as of this encounter
--- OUTSIDE RECORDS SUMMARY | 2024-04-26 02:55 | XMS_ITS | Encounter Summary ---
Author Organization [facility] Address [address] [place] [address] Phone Care Team Providers Care Rn Otolaryngology Name Role Phone Justen Gale MD Primary Care Provider [phone] David Roberts APRN, TUMBLING INSTRUCTOR Unavailable [phone] Annel Rod MD Unavailable Reason for Visit * Reason Comments ED Follow-up Back pain Encounter Details Date Type Department Care Team (Late st Contact Info) Description 06/27/2023 1:00 PM PROFESSIONAL EMPLOYER CONSULTANT Office Visit [facility] #[address] [place] [phone] Justen Gale MD #[address] [address] Pharyngitis due to group B beta hemolytic streptococci (Primary Dx); Bilateral low back pain with sciatica, sciatica laterality unspecified, unspecified chronicity Discharge Disposition: Discharged to home or Selfcare [...] Sign Reading Time Taken Comments Blood Pressure 142/92 06/27/2023 12:59 PM PROFESSIONAL EMPLOYER CONSULTANT Pulse 85 06/27/2023 12:59 PM PROFESSIONAL EMPLOYER CONSULTANT Temperature 36.4 ??C (97.5 ??F) 06/27/2023 12:[address] Respiratory Rate 20 06/27/2023 12:59 PM PROFESSIONAL EMPLOYER CONSULTANT Oxygen Saturation 97% 06/27/2023 12:59 PM PROFESSIONAL EMPLOYER CONSULTANT Inhaled Oxygen Concentration - - Weight 126.8 kg (279 lb 8 oz) 06/27/2023 12:59 P M PROFESSIONAL EMPLOYER CONSULTANT Height 154.9 cm (5' 1 ) 06/27/2023 12:59 PM PROFESSIONAL EMPLOYER CONSULTANT Body Mass Index 52.81 06/27/2023 12:59 PM PROFESSIONAL EMPLOYER CONSULTANT documented in this encounter Progress Notes * Alvina Lockwood RMA - 06/27/2023 1:00 PM CST Karly Marques is a 68 y.o. female with current BMI: Body mass index is 52.81 kg/m??. Interventions discussed including: encourage daily physical activity and well- balanced diet. ESSIONAL EMPLOYER CONSULTANT * Alvina Lockwood RMA - 06/27/2023 1:00 PM CST Karly Marques, 68 y.o., female is here for ED Follow-up (Back pain) Medication Refills: Patient reports/denies need for medication refills. Orders Pended: no Requested Prescriptions No prescriptions requested or ordered in this encounter Home Medications Medication Sig Start Date End Date Taking? Authorizing Provider amitriptyline (ELAVIL) 25 MG Tablet nightly. 02/18/19 Yes Tyler Smith MD B-Kary ULTRAFINE III SHORT PEN 31G X 8 MM Misc USE 6 TIMES DAILY DIRECTED 06/16/22 Yes Justen Gale MD Blood Glucose Monitoring Suppl Device Diagnosis: Diabetes Type 2 Blood testing frequency: 4 times aday 11/21/17 Yes Justen Gale MD Continuous Blood Gluc Sensor (FreeStyle Eileen 2 Sensor) Misc APPLY 1 SENSOR AND WEAR FOR 14 DAYS TOCHECK BLOOD SUGAR 04/14/23 Yes Annel Rod MD Continuous Blood Gluc Sensor (FreeStyle Eileen 2 Sensor) Misc 1 Each by Does not apply route every 14 days. Change sensor every 14 days. E11.42, insulin dependent 04/14/23 Yes Annel Rod MD cyclobenzaprine (FLEXERIL) 5 MG Tablet TAKE 1 TABLET BY MOUTH EVERY NIGHT FOR 14 DAYS 02/07/23 Yes Justen Gale MD diphenhydrAMINE (BENADRYL) 25 MG Capsule Take 25 mg by mouth every 6 hours as needed. Yes Tyler Smith MD exemestane (AROMASIN) 25 MG Tablet Take 25 mg by mouth daily. Yes Tyler Smith MD Glucose Blood (ONE TOUCH ULTRA TEST) Strip Test four times daily. 02/11/20 Yes Annel Rod MD HumaLOG KwikPen 100 UNIT/ML Solution Pen-injector INJECT 22 UNITS UNDER SKIN BEFORE EACH MEAL.; ISFOF 1:15 OF IF>150MG/DL; MAX DAILY DOSE OF 100 UNITS Patient taking differently: INJECT 28 UNITS UNDER SKIN BEFORE EACH MEAL.; ISF OF 1:15 OF IF>150MG/DL; MAX DAILY DOSE OF 100 UNITS 03/07/23 Yes Annel Rod MD HumaLOG KwikPen 100 [...] every 6 hours as needed for Anxiety. 01/17/23 Yes Catrina Quiñonez MD hydrOXYzine (ATARAX) 10 MG Tablet 09/14/22 Yes Tyler Smith MD hydrOXYzine (ATARAX) 25 MG Tablet Take 25 mg by mouth. 06/08/22 Yes Tyler Smith MD Lanchava SoloStpallavi 100 UNIT/ML Solution Pen-injector ADMINISTER 50 UNITS UNDER THE SKIN EVERY MORNING 03/02/23 Yes Justen Gale MD losartan (COZAAR) 50 MG Tablet Take 1 Tablet by mouth daily. 10/19/22 Yes Justen Gale MD methenamine (HIPREX) 1 GM Tablet Take 1,000 mg by mouth. 04/27/22 Yes Tyler Smith MD methenamine (HIPREX) 1 GM Tablet Take 1 g by mouth 2 times daily. Yes Tyler Smith MD metoprolol tartrate (LOPRESSOR) 25 MG Tablet Take 1 Tablet by mouth 2 times daily. 07/05/22 Yes Pili Elkins APRN, NETTA [facility]. Devices [facility] Supply and instructions: 09/09/20 Yes Justen Gale MD Myrbetriq 50 MG TABLET SR 24 HR Take 50 mg by mouth daily. 04/27/22 Yes Tyler Smith MD naloxone HCl (Narcan) 4 MG/0.1ML Liquid as needed 05/13/21 Yes Tyler Smith MD nystatin 484156 UNIT/GM Powder 11/09/21 Yes Tyler Smith MD ondansetron (Zofran) 4 MG Tablet Take 1 Tablet by mouth every 8 hours as needed for Nausea - 1st line. 04/13/23 Yes Pili Elkins APRN, TUMBLING INSTRUCTOR OneTouch Delica Lancets 33G [facility] 1 Lancet by Does not apply route 4 times daily. 03/09/21 Yes Annel Rod MD oxybutynin (DITROPAN-XL) 10 MG TABLET SR 24 HR Take 10 mg by mouth in the morning and at bedtime. 06/28/22 Yes Tyler Smith MD rivaroxaban (XARELTO) 20 MG Tablet Take 20 mg by mouth daily. Yes Tyler Smith MD rOPINIROLE (REQUIP) 5 MG Tablet TAKE 1 TABLET BY MOUTH EVERY NIGHT 09/22/22 Yes Justen Gale MD tirzepatide (Mounjaro) 2.5 MG/0.5ML Solution Pen-injector 2.5 mg by Subcutaneous route once a week.05/30/23 Yes Annel Rod MD trospium (SANCTURA) 20 MG Tablet Take 20 mg by mouth 2 times daily. Yes Provider, MD Tyler There are no discontinued [...] done Diabetes: Foot Exam 08/12/2020 SARS-COV-2 Immunization (2022- season) 2022 Orders Pended: no The following BPA's have been addressed with the patient today: BMI ESSIONAL EMPLOYER CONSULTANT * Justen Gale MD - 06/27/2023 1:00 PM CST SUBJECTIVE: Karly Marques is here to follow-up/ evaluation on her 1. Pharyngitis due to group B beta hemolytic streptococci 2. Bilateral low back pain with sciatica, sciatica laterality unspecified, unspecified chronicity Past Medical History Positives Diagnosis Date Breast cancer (HCC) Diabetes (HCC) DVT (deep venous thrombosis) (HCC) High blood pressure History of pulmonary embolus (PE) Hyperthyroidism Neuropathy Osteoarthritis Restless leg syndrome Sciatica Sleep apnea Spinal stenosis Past Surgical History: Procedure Laterality Date BACK SURGERY 02/16/2023 [facility]; Spinal Stmulator BREAST SURGERY CHOLECYSTECTOMY LAP,INGUINAL HERNIA [...] her medication and denies medication side effects. Went to urgent care on Monday Got z pack Dx with strep throat Wants referral to ent due to recurrent strep Sick since last Monday Doesn't feel like getting better on abx. Dysphagia yes Pain with swallowing Says tonsils are large No f/c Has sore throat Feels like has pain nose and ears too Went to [facility] 06/16/2023 Went to ed Had sob. Went due to back pain Was seen at u Had back surgery few years ago. Has nerve stim Will see pain doctor soon to possibly have stim removed Discharged from ed with pain meds Outpatient Medications Marked as Taking for the 06/27/23 encounter (Office Visit) with Shashi Gale MD Medication Sig Dispense Refill amitriptyline (ELAVIL) 25 MG Tablet nightly. B-D ULTRAFINE III SHORT PEN 31G X [...] days. E11.42, insulin dependent 6 Each 1 cyclobenzaprine (FLEXERIL) 5 MG Tablet TAKE 1 TABLET BY MOUTH EVERY NIGHT FOR 14 DAYS 14 Tablet 0 diphenhydrAMINE (BENADRYL) 25 MG Capsule Take 25 mg by mouth every 6 hours as needed. exemestane (AROMASIN) 25 MG Tablet Take 25 mg by mouth daily. Glucose Blood (ONE TOUCH ULTRA TEST) Strip Test four times daily. 400 Strip 3 HumaLOG KwikPen 100 UNIT/ML Solution Pen-injector INJECT 22 UNITS UNDER SKIN BEFORE EACH MEAL.; ISFOF 1:15 OF IF>150MG/DL; MAX DAILY DOSE OF 100 UNITS (Patient taking differently: INJECT 28 UNITSUNDER SKIN BEFORE EACH MEAL.; ISF OF 1:15 OF IF>150MG/DL; MAX DAILY DOSE OF 100 UNITS) 30 mL 0 HumaLOG KwikPen 100 UNIT/ML Solution Pen-injector ADMINSTER 22 UNITS UNDER THE SKIN BEFORE EACH MEAL, ISF OF 1:15 OF IF> 150MG/DL MAX DAILY DOSE OF 100 UNITS 30 mL 1 HYDROcodone-acetaminophen (NORCO) 7.5-325 MG Tablet TK 1 T PO QID PRN. DO NOT FILL UNTIL hydrOXYzine (ATARAX) 10 MG Tablet Take 1 Tablet by mouth every 6 hours as needed for Anxiety. 30 Tablet 0 hydrOXYzine (ATARAX) 10 MG Tablet hydrOXYzine (ATARAX) 25 MG Tablet Take 25 mg by mouth. Lantus SoloStar 100 UNIT/ML Solution Pen-injector ADMINISTER 50 UNITS UNDER THE SKIN EVERY MORNING 45 mL 1 losartan (COZAAR) 50 MG Tablet Take 1 Tablet by mouth daily. 90 Tablet 3 methenamine (HIPREX) 1 GM Tablet Take 1,000 mg by mouth. methenamine (HIPREX) 1 GM Tablet Take 1 g by mouth 2 times daily. metoprolol tartrate (LOPRESSOR) 25 MG Tablet Take 1 Tablet by mouth 2 times daily. 180 Tablet 3 Misc. Devices Mis Supply and instructions: 1 Each 0 Myrbetriq 50 MG TABLET SR 24 HR Take 50 mg by mouth daily. naloxone HCl (Narcan) 4 MG/0.1ML Liquid as needed nystatin [id number] UNIT/GM Powder ondansetron (Zofran) 4 MG Tablet Take 1 Tablet by mouth every 8 hours as needed for Nausea - 1st line. 15 Tablet 0 OneTouch Delica Lancets 33G Misc 1 Lancet by Does not apply route 4 times daily. 400 Lancet 3 oxybutynin (DITROPAN-XL) 10 MG TABLET SR 24 HR Take 10 mg by mouth in the morning and at bedtime. rivaroxaban (XARELTO) 20 MG Tablet Take 20 mg by mouth daily. rOPINIROLE (REQUIP) 5 MG Tablet TAKE 1 TABLET BY MOUTH EVERY NIGHT 90 Tablet 2 tirzepatide (Mounjaro) 2.5 MG/0.5ML Solution Pen-injector 2.5 mg by Subcutaneous route once a week.2 mL 0 trospium (SANCTURA) 20 MG Tablet Take 20 mg by mouth 2 times daily. Allergies Allergen Reactions Ceftriaxone Anaphylaxis Cephalosporins Anaphylaxis Dermatological Products, Misc. Hives and Itching SURGICAL TAPE Lorazepam Other [...] 101 01/24/2018 LDL 110 11/02/2017 INR 1.1 08/13/2022 HGBA1C 9.5 (A) 05/30/2023 HGBA1C 8.6 (A) 09/14/2022 HGBA1C 6.9 (A) 07/27/2021 ESR 56 (H) 12/03/2017 Lab Results Component [...] y.o. female in no acute distress. Vitals: 06/27/23 1259 BP: (!) 142/92 Pulse: 85 Resp: 20 Temp: 97.5 ??F (36.4 ??C) TempSrc: Temporal SpO2: 97% Weight: 279 lb 8 oz (126.8 kg) Height: 5' 1 (1.549 m) Body mass index is 52.81 kg/m??. BP Readings from Last 3 Encounters: 06/27/23 (!) 142/92 05/30/23 128/78 01/17/23 128/86 Wt Readings from Last 3 Encounters: 06/27/23 279 lb 8 oz (126.8 kg) 05/30/23 273 lb 3.2 oz (123.9 kg) 01/17/23 283 lb 8 oz (128.6 kg) SKIN: Warm and dry. EYES: Sclerae are clear. NECK: Supple. No thyromegaly or adenopathy, no bruits.BACK: No spine or costovertebral angle tenderness. LUNGS: Clear to auscultation and percussion. HEART:normal rate, regular rhythm, normal S1, S2, no murmurs, rubs, clicks or gallops. ABDOMEN: Bowel sounds are active. No masses. No organomegaly, no tenderness. No bruits. EXTREMITIES: No edema. Cane Mask Cane Tm clear Red, oropharynx Neck supple Mild tenderness to palp l5 s1 ASSESSMENT AND PLAN Diagnoses and all orders for this visit: Pharyngitis due to group B beta hemolytic streptococci Bilateral low back pain with sciatica, sciatica laterality unspecified, unspecified chronicity There are no discontinued medications. No follow-ups on file. After visit summary discussed with patient. Documentation for this visit on 06/27/2023 was completed using a template. I have seen and examined the patient. Everything documented was personally performed at this visit with the necessary additions, deletions and changes made as appropriate. Low back spencer: defer to pain doctor. Sees him soon in [place]. Sees dr moore pain doctor. Strep pharyngitis: on z pack already has only been two days. Lets give it more time to work. Vitalsfine. ESSIONAL EMPLOYER CONSULTANT documented in this encounter Plan of Treatment Upcoming Encounters Date Type Department Care Team (Late st Contact Info) Description 05/17/2024 2:45 PM PROFESSIONAL EMPLOYER CONSULTANT Office Visit [facility] - Endocrinology - [place] [address] [place] [address] Annel Rod MD #[address] [address] documented as of this encounter Visit Diagnoses Diagnosis Pharyngitis due to group B beta hemolytic streptococci- Primary Streptococcal sore throat Bilateral low back pain with sciatica, sciatica laterality unspecified, unspecified chronicity documented in this encounter Additional Health Concerns Assessment Noted Time PHQ-9 Depression Total Score: 8 01/18/20 2:24 PM CDT documented as of this encounter Care Teams Rn Otolaryngology Relationship Specialty Start Date End Date Justen Gale MD #[address] [address] PCP - General Family Medicine 10/17/17 David Roberts, GLUE MOUNTER OPERATOR, TUMBLING INSTRUCTOR #2 [place] [address] Nurse Practitioner Advanced Practice Nurse 01/31/22 Annel Rod MD #[address] [address] Consulting Physician Endocrinology 07/01/22 documented as of this encounter
--- OUTSIDE RECORDS SUMMARY | 2024-04-26 02:55 | XMS_ITS | Encounter Summary ---
Author Organization [facility] Address [address] [place] [address] Phone Care Team Providers Care Phlebotomist Associate Name Role Phone Justen Gale MD Primary Care Provider [phone] David Roberts APRN, COST ACCOUNTING ANALYST Unavailable [phone] Annel Rod MD Unavailable Reason for Visit * Reason Onset Date Comments Nausea 03/05/2023 Fatigue 03/05/2023 Generalized Weakness 03/05/2023 Encounter Details Date Type Department Care Team (Late st Contact Info) Description 03/05/2023 Nurse Triage [facility] [address] [place] [address] Justen Gale MD #[address] [address] Nausea; Fatigue; Generalized Weakness Social History Tobacco Use Types Packs/Day [...] Telephone Encounter - Johanna Almonte RN - 03/05/2023 11:12 PM CAMERA SUPERVISOR SITUATION: Weakness/Fatigue/Nausea BACKGROUND: Patient calling after hours, reporting recent back surgery on 02/16/23. She states thatabout 2 days after surgery she was back in the hospital for uncontrolled incisional pain and was onantibiotics for infection of an unknown source. Since surgery she reports she has just felt unwell.She reports feeling nauseated, weak, tired and just unwell all over. She reports a 15-20 lb weight loss in the past 3-4 weeks, she cannot eat much, eats 1/4 of a sandwich and a little bit of applesauce and cannot eat any more than that; she cannot focus, she feels shaky inside , and at times she feels like she cannot breathe. She denies breathing difficulty currently. She reports she was recently treated for a UTI. Her blood sugar tonight is 205. She can walk and stand but uses a walker since surgery due to the pain. She is drinking fluids, urinating and staying hydrated. Denies feeling confused or disoriented but states her thinking is off . The weakness and fatigue are interfering with her usual activity and she states she cannot do anything. She has a hospital follow up appointment with Dr Gale scheduled for 03/13/23. RECOMMENDATION: Will go to the ED in the next 4 hours. See care advice and disposition for Guideline First positive answer recorded, all responses to prior questions were negative. If symptoms increase, change or if new symptoms develop, call your HCP or call back. Recommendations were based on caller information and is not a diagnosis. Verified and reviewed all triage information with caller. Reason for Disposition ??? [1] MODERATE weakness (i.e., interferes with work, school, normal activities) AND [2] cause unknown (Exceptions: Weakness from acute minor illness or poor fluid intake; weakness is chronic and not worse.) Protocols used: WEAKNESS (GENERALIZED) AND IRNNLPH-Z-NP RA SUPERVISOR documented in this encounter Plan of Treatment Upcoming Encounters Date Type Department Care Team (Late st Contact Info) Description 05/17/2024 2:45 PM CAMERA SUPERVISOR Office Visit [facility] - Endocrinology [facility] #2 [place] [address] Annel Rod MD #[address] [address] documented as of this encounter Visit Diagnoses Not on filedocumented in this encounter Additional Health Concerns Assessment Noted Time PHQ-9 Depression Total Score: 8 01/18/20 23 2:24 PM CDT documented as of this encounter Care Teams Phlebotomist Associate Relationship Specialty Start Date End Date Justen Gale MD #[address] [address] PCP - General Family Medicine 10/17/17 David Roberts, MEAT AND SEAFOOD MANAGER, COST ACCOUNTING ANALYST [address] [place] [address] Nurse Practitioner Advanced Practice Nurse 01/31/22 Annel Rod MD #[address] [address] Consulting Physician Endocrinology 07/01/22 documented as of this encounter
--- OUTSIDE RECORDS SUMMARY | 2024-04-26 02:55 | XMS_ITS | Encounter Summary ---
Author Organization [facility] Address [address] [place] [address] Phone Care Team Providers Care Family Service Caseworker Name Role Phone Justen Gale MD Primary Care Provider [phone] David Roberts APRN, DESIZING PAD OPERATOR Unavailable [phone] Annel Rod MD Unavailable Reason for Visit * Reason Onset Date Comments Appointment 02/03/2023 Abdominal Pain 02/03/2023 Encounter Details Date Type Department Care Team (Late st Contact Info) Description 02/03/2023 Nurse Triage [facility] [address] [place] [address] Justen Gale MD #[address] [address] Appointment; Abdominal Pain Social History Tobacco Use Types Packs/Day [...] Miscellaneous Notes * Telephone Encounter - Sumaya Reed, RN - 02/03/2023 12:34 PM CDT SITUATION: RLQ abdomen pain BACKGROUND: Onset last night Lower abd pain in pelvic region tender to touch ASSESSMENT: Symptom woke up with pain Painful to walk Pain (0-10): 8 Temp: Denies Treatment / Response: resting does not help RECOMMENDATION: See care advice and disposition for Guideline Directed to the Emergency Room Caller verbalized understanding and agreeable to recommendations First positive answer recorded, all responses to prior questions were negative. If symptoms increase, change or if new symptoms develop, call your HCP or call back. Recommendations were based on caller information and is not a diagnosis. Verified and reviewed all triage information with caller. Reason for Disposition ? ? Constant abdominal pain lasting > 2 hours Protocols used: ABDOMINAL PAIN - FEMALE-A-OH * Telephone Encounter - Bianca Walker - 02/03/2023 12:18 PM CDT Symptoms: Nausea But No Vomiting, Abdominal Pain - Female - Status Unknown Outcome: Schedule an urgent appointment within same day Reason: Caller denied all higher acuity questions The caller rejected this outcome Caller denied: * Severe abdominal pain * Vaginal bleeding * Blood in vomit * Blood in the stool (poop) documented in this encounter Plan of Treatment Upcoming Encounters Date Type Department Care Team (Late st Contact Info) Description 05/17/2024 2:45 PM HORTICULTURAL SPECIALTY GROWER Office Visit [facility] - [facility]ocrinology - [place] [address] [place] [address] Annel Rod MD #[address] [facility] [address] [place] [address] documented as of this encounter Visit Diagnoses Not on filedocumented in this encounter Additional Health Concerns Assessment Noted Time PHQ-9 Depression Total Score: 8 01/18/20 23 2:24 PM CDT documented as of this encounter Care Teams Family Service Caseworker Relationship Specialty Start Date End Date Justen Gale MD [facility] [address] [place] [address] PCP - General Family Medicine 10/17/17 David Roberts APRN, NETTA #2 [place] [address] Nurse Practitioner Advanced Practice Nurse 01/31/22 Annel Rod MD [facility] [address] [place] [address] Consulting Physician Endocrinology 07/01/22 documented as of this encounter
--- OUTSIDE RECORDS SUMMARY | 2024-04-26 02:55 | XMS_ITS | Encounter Summary ---
Author Organization [facility] [employer] Care Team Providers Care Senior Insight Manager Name Role Phone Justen Gale MD Primary Care Provider [phone] David Roberts APRN, [facility] Unavailable [phone] Annel Rod MD Unavailable Encounter Details Date Type Department Care Team (Latest Contact Info) Description 05/30/2023 Travel Social History Tobacco Use Types Packs/Day [...] st Contact Info) Description 05/17/2024 2:45 PM DUST BRUSH ASSEMBLER Office Visit [facility] - Endocrinology [facility] #[address] [place] [id number] Annel Rod MD #[address] [address] documented as of this encounter Visit Diagnoses Not on filedocumented in this encounter Additional Health Concerns Assessment Noted Time PHQ-9 Depression Total Score: 8 01/18/20 23 2:24 PM CDT documented as of this encounter Care Teams Senior Insight Manager Relationship Specialty Start Date End Date Justen Gale MD #[address] [address] PCP - General Family Medicine 10/17/17 David Roberts APRN, NETTA [address] [place] [address] Nurse Practitioner Advanced Practice Nurse 01/31/22 Annel Rod MD #[address] [address] Consulting Physician Endocrinology 07/01/22 documented as of this encounter
--- OUTSIDE RECORDS SUMMARY | 2024-04-26 02:55 | XMS_ITS | Encounter Summary ---
Author Organization [facility] Address [address] [place] [address] Phone Care Team Providers Care Garbage Truck Helper Name Role Phone Justen Gale MD Primary Care Provider [phone] David Roberts APRN, AMUSEMENT CENTRE MANAGER Unavailable [phone] Annel Rod MD Unavailable Reason for Visit * Reason Onset Date Comments Medication Refill 03/06/2023 Encounter Details Date Type Department Care Team (Late st Contact Info) Description 03/06/2023 MyChart RX Renewal [facility] - Endocrinology [facility] #[address] [place] [address] Annel Rod MD #[address] [address] Medication Renewal Reviewed Social History Tobacco Use Types Packs/Day Years [...] Encounter - Annel Rod MD - 03/07/2023 10:28 PM CST Rx sent AL CONTACT WORKER documented in this encounter Plan of Treatment Upcoming Encounters Date Type Department Care Team (Late st Contact Info) Description 05/17/2024 2:45 PM SOCIAL CONTACT WORKER Office Visit [facility] - Endocrinology - [place] #2 [place] [address] Annel Rod MD #[address] [place] [address] documented as of this encounter Visit Diagnoses Not on filedocumented in this encounter Additional Health Concerns Assessment Noted Time PHQ-9 Depression Total Score: 8 01/18/20 23 2:24 PM CDT documented as of this encounter Care Teams Garbage Truck Helper Relationship Specialty Start Date End Date Justen Gale MD #2 [facility] [address] [place] [address] PCP - General Family Medicine 10/17/17 David Roberts APRN, AMUSEMENT CENTRE MANAGER #[address] [place] [address] Nurse Practitioner Advanced Practice Nurse 01/31/22 Annel Rod MD #[address] [place] [address] Consulting Physician Endocrinology 07/01/22 documented as of this encounter
--- OUTSIDE RECORDS SUMMARY | 2024-04-26 02:55 | XMS_ITS | Encounter Summary ---
Author Organization [facility] Address [address] [place] [address] Phone Care Team Providers Care Manager Monitoring Name Role Phone Justen Gale MD Primary Care Provider [phone] David Roberts APRN, TERRAZZO POLISHER Unavailable [phone] Annel Rod MD Unavailable Reason for Visit * Reason Onset Date Comments Shortness of Breath 06/28/2023 Encounter Details Date Type Department Care Team (Late st Contact Info) Description 06/28/2023 Nurse Triage [facility] [address] [place] [address] Justen Gale MD #[address] [address] Shortness of Breath Social History Tobacco Use [...] encounter Miscellaneous Notes * Telephone Encounter - Ana Maria Mcclelland RN - 06/28/2023 9:34 AM CST SITUATION: Trouble breathing BACKGROUND: Office visit with PCP for pharyngitis. Urgent Care visit on 06/24 and was positive for strep throat and is on Zithromax. ASSESSMENT: Symptoms: Had a rough night, last night - I keep waking up, keep gasping for air, I feel sicker than I was yesterday. Patient states she is struggling with each breath. I had a hard time talking. Left eye redness. RECOMMENDATION: Patient triages for 911 to be called. Patient refused for 911 to be called but is agreeable to go to ED now. Her will drive her to ED. See care advice and disposition for guideline. First positive answer recorded, all responses to prior questions were negative. If symptoms increase, change or if new symptoms develop, call your PCP or call back. Recommendation based on caller information and is not a diagnosis. Verified and reviewed all triage information with caller. Teach-back method utilized. Reason for Disposition SEVERE difficulty breathing (e.g., struggling for each breath, speaks in single words, pulse > 120) Protocols used: Breathing [id number] MAKER documented in this encounter Plan of Treatment Upcoming Encounters Date Type Department Care Team (Late st Contact Info) Description 05/17/2024 2:45 PM PILL MAKER Office Visit [facility] - Endocrinology - [place] [address] [place] [id number] Annel Rod MD #[address] [address] documented as of this encounter Visit Diagnoses Not on filedocumented in this encounter Additional Health Concerns Assessment Noted Time PHQ-9 Depression Total Score: 8 01/18/20 23 2:24 PM CDT documented as of this encounter Care Teams Manager Monitoring Relationship Specialty Start Date End Date Justen Gale MD #2 [facility] [address] [place] [address] PCP - General Family Medicine 10/17/17 David Roberts LADIES' LOCKER ROOM ATTENDANT, TERRAZZO POLISHER #2 [place] [address] Nurse Practitioner Advanced Practice Nurse 01/31/22 Annel Rod MD #2 [facility] [address] [place] [address] Consulting Physician Endocrinology 07/01/22 documented as of this encounter
--- OUTSIDE RECORDS SUMMARY | 2024-04-26 02:55 | XMS_ITS | Encounter Summary ---
Author Organization [facility] Address [address] [place] [address] Phone Care Team Providers Care Sergeant Missile Crewman Name Role Phone Justen Gale MD Primary Care Provider [phone] David Roberts APRN, AUTOMOBILE ACCESSORIES SALESPERSON Unavailable [phone] Annel Rod MD Unavailable Reason for Visit * Reason Comments Medication Refill Encounter Details Date Type Department Care Team (Late st Contact Info) Description 04/13/2023 Refill [facility] - Endocrinology - [place] #[address] [place] [address] Annel Rod MD #[address] [address] Medication Refill Social History Tobacco [...] Telephone Encounter - Jennifer Wang, RN - 04/14/2023 10:00 AM SWATCH FOLDER Requested Prescriptions Pending Prescriptions Disp Refills ??? Continuous Blood Gluc Sensor (FreeStyle Eileen 2 Sensor) Misc [Pharmacy Med Name: FREESTYLE EILEEN 2 SENSOR] 6 Each 1 Sig: APPLY 1 SENSOR AND WEAR FOR 14 DAYS TO CHECK BLOOD SUGAR Next appt: 05/30/2023 CH FOLDER documented in this encounter Plan of Treatment Upcoming Encounters Date Type Department Care Team (Late st Contact Info) Description 05/17/2024 2:45 PM SWATCH FOLDER Office Visit [facility] - Endocrinology [facility] #[address] [place] [address] Annel Rod MD #2 [facility] [address] [place] [address] documented as of this encounter Visit Diagnoses Not on filedocumented in this encounter Additional Health Concerns Assessment Noted Time PHQ-9 Depression Total Score: 8 01/18/20 23 2:24 PM CDT documented as of this encounter Care Teams Sergeant Missile Crewman Relationship Specialty Start Date End Date Justen Gale MD #2 [facility] [address] [place] [address] PCP - General Family Medicine 10/17/17 David Roberts APRN, AUTOMOBILE ACCESSORIES SALESPERSON #2 [place] [address] Nurse Practitioner Advanced Practice Nurse 01/31/22 Annel Rod MD #[address] [address] Consulting Physician Endocrinology 07/01/22 documented as of this encounter
--- OUTSIDE RECORDS SUMMARY | 2024-04-26 02:55 | XMS_ITS | Encounter Summary ---
Author Organization [facility] Address [address] [place] [address] Phone Care Team Providers Care Cooker Pie Filling Name Role Phone Justen Gale MD Primary Care Provider [phone] David Roberts APRN, MEDICAL ILLUSTRATOR Unavailable [phone] Annel Rod MD Unavailable Reason for Visit * Reason Onset Date Comments Advice Only 01/28/2023 Encounter Details Date Type Department Care Team (Late st Contact Info) Description 01/28/2023 Telephone [facility] [address] [place] [address] Justen Gale MD #[address] [address] Advice Only Social History Tobacco Use Types [...] encounter Miscellaneous Notes * Telephone Encounter - aNyla Blanco RN - 01/28/2023 10:39 AM CDT S: Patient is calling in regards to Hydrocodone medication that MD Taylor Smith prescribes. B: Patient states that she sees this provider as her pain management provider. A: Patient states that she is unable to get her pain medication at this time. Patient states that the pharmacy where this is typically sent to is out of this medication. Patient has found one pharmacy that has this medication. Patient states that this provider does not have an after hours line for this. Patient advised to be seen in the ED if pain becomes severe. R: Verbalized understanding and no further needs at this time. documented in this encounter Plan of Treatment Upcoming Encounters Date Type Department Care Team (Late st Contact Info) Description 05/17/2024 2:45 PM PHOTOGRAPHIC EDITOR Office Visit [facility] - Endocrinology - [place] #[address] [place] [address] Annel Rod MD #2 [facility] [address] [place] [address] documented as of this encounter Visit Diagnoses Not on filedocumented in this encounter Additional Health Concerns Assessment Noted Time PHQ-9 Depression Total Score: 8 01/18/20 23 2:24 PM CDT documented as of this encounter Care Teams Cooker Pie Filling Relationship Specialty Start Date End Date Justen Gale MD #2 [facility] [address] [place] [address] PCP - General Family Medicine 10/17/17 David Roberts APRN, MEDICAL ILLUSTRATOR #[address] [place] [address] Nurse Practitioner Advanced Practice Nurse 01/31/22 Annel Rod MD #[address] [address] Consulting Physician Endocrinology 07/01/22 documented as of this encounter
--- OUTSIDE RECORDS SUMMARY | 2024-04-26 02:55 | XMS_ITS | Encounter Summary ---
Author Organization [facility] Address [address] [place] [address] Phone Care Team Providers Care Ham Curer Name Role Phone Justen Gale MD Primary Care Provider [phone] David Roberts APRN, TELECOMMUNICATIONS SALES REPRESENTATIVE Unavailable [phone] Annel Rod MD Unavailable Reason for Visit * Reason Comments Medication Refill Encounter Details Date Type Department Care Team (Late st Contact Info) Description 03/05/2023 Refill [facility] - Family Medicine [facility] #2 [place] [address] Pili Elkins APRN, TELECOMMUNICATIONS SALES REPRESENTATIVE #[address] [address] Medication Refill Social History Tobacco [...] Telephone Encounter - Marlys Anderson RN - 03/06/2023 9:06 AM CST Name from pharmacy: HYDROCHLOROTHIAZIDE 12.5MG CAPSULES Will file in chart as: hydroCHLOROthiazide (MICROZIDE) 12.5 MG Capsule The original prescription was discontinued on 10/19/2022 by Justen Gale MD ING DEPARTMENT SUPERVISOR documented in this encounter Plan of Treatment Upcoming Encounters Date Type Department Care Team (Late st Contact Info) Description 05/17/2024 2:45 PM CUTTING DEPARTMENT SUPERVISOR Office Visit [facility] - Endocrinology [facility] #2 [place] [address] Annel Rod MD #[address] [address] documented as of this encounter Visit Diagnoses Diagnosis Essential hypertension Unspecified essential hypertension documented in this encounter Additional Health Concerns Assessment Noted Time PHQ-9 Depression Total Score: 8 01/18/20 23 2:24 PM CDT documented as of this encounter Care Teams Ham Curer Relationship Specialty Start Date End Date Justen Gale MD #[address] [address] PCP - General Family Medicine 10/17/17 David Roberts APRN, NETTA #2 [place] [address] Nurse Practitioner Advanced Practice Nurse 01/31/22 Annel Rod MD #[address] [address] Consulting Physician Endocrinology 07/01/22 documented as of this encounter
--- OUTSIDE RECORDS SUMMARY | 2024-04-26 02:55 | XMS_ITS | Encounter Summary ---
Author Organization [facility] Address [address] [place] [address] Phone Care Team Providers Care Hand Cloth Folder Name Role Phone Justen Gale MD Primary Care Provider [phone] David Roberts APRN, FILM WASHER Unavailable [phone] Annel Rod MD Unavailable Reason for Referral * Radiology Services (Routine) - Closed Specialty Diagnoses / Procedures Referred By Elyssa benavides Referred To Contact Radiology Diagnoses Thyroid nodule Procedures US THYROID Annel Rod MD #[address] [address] Phone: tel: fax: Referral ID Status Reason Start Date Expiration Date Visits Re quested Visits Authorized [id number] Closed 05/30/2023 1 1 LE WRAPPER Reason for Visit * Reason Comments Follow-up Diabetes Mellitus Encounter Details Date Type Department Care Team (Late st Contact Info) Description 05/30/2023 2:30 PM SAMPLE WRAPPER Office Visit [facility] - Endocrinology - [place] #[address] [place] [address] Annel Rod MD #[address] [address] Type 2 diabetes mellitus with diabetic polyneuropathy, with long-term current use of insulin (HCC) (Primary Dx); Class 3 severe obesity due to excess calories with serious comorbidity and body mass index (BMI) of 50.0 to 59.9 in adult (HCC); Thyroid nodule; Insulin dose changed (HCC); New medication added Discharge Disposition: Discharged to home or Selfcare Social History Tobacco Use Types Packs/Day Years Used Date Smoking Tobacco: Never Smokeless Tobacco: Never Tobacco Cessation:Counseling Given: Not [...] Sign Reading Time Taken Comments Blood Pressure 128/78 05/30/2023 2:36 PM SAMPLE WRAPPER Pulse 88 05/30/2023 2:36 PM SAMPLE WRAPPER Temperature 37.1 ??C (98.7 ??F) 05/30/2023 2:36 PM CS T Respiratory Rate 20 05/30/2023 2:36 PM SAMPLE WRAPPER Oxygen Saturation 96% 05/30/2023 2:36 PM SAMPLE WRAPPER Inhaled Oxygen Concentration - - Weight 123.9 kg (273 lb 3.2 oz) 05/30/2023 2:36 PM SAMPLE WRAPPER Height - - Body Mass Index 51.62 01/17/2023 2:25 PM CDT documented in this encounter Patient Instructions * Patient Instructions* Annel Rod MD - 05/30/2023 2:30 PM SAMPLE WRAPPER Please start Mournjaro 2.5 mg SC weekly for 4 weeks, 5 mg SC weekly for 4 weeks, and increase it to7.5 mg SC weekly Please take Lantus 40 units in the morning Please take Humalog 28 units before each meal Please use correctional factor insulin before each meal as directed Please monitor blood sugar before each meal and at bedtime Please bring blood sugar log for review at the next visit Please contact Endocrinology Clinic for low blood sugar events Follow up visit in 1 month RULE OF 15: If you have signs/symptoms of low blood sugar (hypoglycemia),and/or your blood sugar isless than 70 mg/dl, you may choose one of the below treatments (~15 gm of carbohydrate):glucose tablets or 1?2 glass (4 oz.) of apple juice or 1/2 glass (4 oz.) of clear regular soda and recheck blood sugar in 15 minutes, If not above 80 mg/dl, retreat treatment until blood sugar is above 80 mg/dl.Once blood sugar is above 80-90 mg/dL, please give insulin as scheduled. Look at your feet, top and bottom every morning. If you have any signs of infection, such as:areas,change in feeling or temperature, swelling, blisters, or cracks in the skin, call your doctor rightaway. Apply lotion to dry skin areas to prevent cracks. Keep the skin between your toes clean and dry. CORRECTION FACTOR: 1:15 BLOOD GLUCOSE (SUGAR) CORRECTION FACTOR: 1:15 HUMALOG/NOVOLOG UNDER 70 TREAT LOW, USE RULE OF 15 71 - 140 NO CORRECTIONAL INSULIN NEEDED 141 - 155 +1 UNIT 156 - 170 +2 UNITS 171 - 185 +3 UNITS 186 - 200 +4 UNITS 201 - 215 +5 UNITS 216 - 230 +6 UNITS 231 - 245 +7 UNITS 246 - 260 +8 UNITS 261 - 275 +9 UNITS 276 - 290 +10 UNITS 291 - 300 +11 UNITS ABOVE 300 +12 UNITS LE WRAPPER documented in this encounter Progress Notes * Annel Rod MD - 05/30/2023 2:30 PM CST Subject&Objective Karly Marques is a 67-year-old woman who comes to the Endocrinology office to discuss management of type 2 diabetes mellitus. The patient's diabetes is complicated by lower extremity sensory neuropathy. Other pertinent health history includes hypertension, dyslipidemia, OA, thyroid nodule, UTI,and obesity. The patient was initially diagnosed with diabetes approximately 11 years ago. The patient had severe gastrointestinal side effects when taking Ozempic weekly injection. Currently, the patient takes Lantus 50 units in the morning and Humalog 22 units before each meal for management of hyperglycemia. The patient denied low blood sugar event or severe hypoglycemia requiring third constitution party intervention. Review of her CGM report for the past four weeks showed morning values in the range of 190 to 240 mg/dL, lunch values ranging from 190 to 260 mg/dL, dinner values in the range of 250 to 290 mg/dL, and bedtime values ranging from 170 to 310 mg/dL. Hemoglobin A1c obtained by POC testing today was 9.5%, increased from the previous measurement of 8.6% obtained in August 2022. Physical Exam Vitals: 05/30/23 1436 BP: 128/78 Pulse: 88 Resp: 20 Temp: 98.7 ??F (37.1 ??C) SpO2: 96% Weight: 273 lb 3.2 oz (123.9 kg) Constitutional: appears well-developed and well-nourished. No acute distress. Head: Normocephalic and atraumatic. Cardiovascular: Normal rate and regular rhythm Pulmonary/Chest: Effort normal and breath sounds normal Lab Results Component Value Date HGBA1C 9.5 (A) 05/30/2023 Lab Results Component Value Date HEMATOCRIT 42.6 09/16/2022 Lab Results Component Value Date CREATININE 0.80 09/16/2022 GFRNA >60 09/16/2022 CALCIUM 10.0 09/16/2022 SGPTALT 21 09/16/2022 Lab Results Component Value Date SODIUM 139 09/16/2022 POTASSIUM 3.5 09/16/2022 CHLORIDE 101 09/16/2022 CO2VEN 28 09/16/2022 MAGNESIUM 1.8 01/08/2018 Her CGM report was reviewed. Assessment and Plan Assessment Karly Marques is an elderly woman with type 2 diabetes mellitus whose glycemic control was suboptimal based on both review of her CGM record and today's hemoglobin A1c measurement. In particular,hemoglobin A1c is well above the patient's [employer] treatment target of less than 7%. Her CGM result was notable for trending down in blood sugar from HS to AM and high prandial blood glucose in spite of correctional factor insulin. Treatment consideration and lifestyle modification were discussed with her at some length. She will change Lantus to 40 units in the morning and increase Humalog to 28 units before each meal for management of hyperglycemia. Ms. Marques will start Mournjaro weekly injection in place of Ozempic. The patient will return for office reevaluation in3 months. PLAN: 1. Decrease Lantus to 40 units QAM 2. Increase Humalog to 28 units QAM 3. Correctional factor insulin dosed at 1:15 if CBG is > 140 mg/dl 4. Start Mournjaro 2.5 mg SC weekly for 4 weeks, 5 mg SC weekly for 4 weeks, and increase it to 7.5mg SC weekly 5. Monitor blood sugar QAC/QHS 6. Bring CBG log for review 7. Contact Endocrinology Clinic for low blood sugar events 8. RTC in 3 months Obesity PLAN: 1. Low carb and calorie diet 2. Avoid snack and beverage between meal and at bedtime Thyroid nodule PLAN: 1. Arrange thyroid ultrasound 2. Further plan based on #1 Medication side effect PLAN: 1. Monitor GI sx while taking GLP-1 agonist Total time spent on this encounter on this date of service, including pre-visit review of separately obtained history, [id number] interaction performing medically appropriate physical exam, patientcounseling/education, interpretation of diagnostic results, care coordination and documentation was33 minute Annel Rod MD 05/30/2023 LE WRAPPER documented in this encounter Plan of Treatment Upcoming Encounters Date Type Department Care Team (Late st Contact Info) Description 05/17/2024 2:45 PM SAMPLE WRAPPER Office Visit [facility] - Endocrinology - [place] #[address] [place] [address] Annel Rod MD #[address] [address] documented as of this encounter Results * US THYROID (09/08/2023 [...] PM T: ??09/11/2023 12:52 PM Report ID: [id number] Reading Location: [id number] Procedure Note Maykel Montano MD - 09/11/2023 [...] Maykel Montano M.D. AM: AM Report ID: [id number] Reading Location: [place] [address] IMPRESSION: 1. 1.1 cm TI-RADS 4 nodule [...] nodules 1.0 cm or greater FNA recommended. Annel Rod MD G US ORDERABLES Final Result documented in this encounter Visit Diagnoses Diagnosis Type 2 diabetes mellitus with diabetic polyneuropathy, with long-term current use of insulin (HCC)- Primary Class 3 severe obesity due to excess calories with serious comorbidity and body mass index (BMI) of 50.0 to 59.9 in adult (HCC) Thyroid nodule Nontoxic uninodular goiter Insulin dose changed (HCC) New medication added Thyroid nodule Nontoxic uninodular goiter documented in this encounter Additional Health Concerns Assessment Noted Time PHQ-9 Depression Total Score: 8 01/18/20 23 2:24 PM CDT documented as of this encounter Care Teams Hand Cloth Folder Relationship Specialty Start Date End Date Justen Gale MD #[address] [address] PCP - General Family Medicine 10/17/17 David Roberts APRN, FILM WASHER #2 [place] [address] Nurse Practitioner Advanced Practice Nurse 01/31/22 Annel Rod MD #[address] [address] Consulting Physician Endocrinology 07/01/22 documented as of this encounter
--- OUTSIDE RECORDS SUMMARY | 2024-04-26 02:55 | XMS_ITS | Encounter Summary ---
Author Organization [facility] Address [address] [place] [address] Phone Care Team Providers Care Forest Logistics Manager Name Role Phone Justen Gale MD Primary Care Provider [phone] David Roberts APRN, RETOUCHING OPERATOR Unavailable [phone] Annel Rod MD Unavailable Reason for Visit * Reason Comments Medication Refill Encounter Details Date Type Department Care Team (Late st Contact Info) Description 02/07/2023 Refill [facility] - Family Medicine [facility] #2 [place] [address] Catrina Quiñonez MD #2 [place] [address] Medication Refill Social History Tobacco Use Types [...] Telephone Encounter - Stacy Huang RN - 02/07/2023 3:24 PM CDT Medication failed the protocol, provider to review and approve the medication order if appropriate. Requested Prescriptions Pending Prescriptions Disp Refills cyclobenzaprine (FLEXERIL) 5 MG Tablet [Pharmacy Med Name: CYCLOBENZAPRINE 5MG TABLETS] 14 Tablet 0 Sig: TAKE 1 TABLET BY MOUTH EVERY NIGHT FOR 14 DAYS Not Delegated - Muscle Relaxants Protocol Failed - 02/07/2023 12:08 PM Failed - This refill cannot be delegated Failed - Not delegated, patient not between 1 and 65 years of age Passed - Visit with relevant provider in past 12 months or upcoming 90 days Recent Visits Date Type Provider Dept 01/17/23 Office Visit Catrina Quiñonez MD [facility] [place] 09/16/22 Office Visit Pili Elkins APRN, CNP [place] 07/05/22 Office Visit Pili Elkins APRN, CNP [place] 05/02/22 Office Visit Justen Gale MD [facility] [place] 03/03/22 Office Visit Pili Elkins APRN, NETTA [facility] [place] Showing recent visits within past 365 days and meeting all other requirements Future Appointments No visits were found meeting these conditions. Showing future appointments within next 90 days and meeting all other requirements documented in this encounter Plan of Treatment Upcoming Encounters Date Type Department Care Team (Late st Contact Info) Description 05/17/2024 2:45 PM FLUOROSCOPE OPERATOR Office Visit [facility] - Endocrinology - [place] [address] [place] [address] Annel Rod MD #2 [facility] [address] [place] [address] documented as of this encounter Visit Diagnoses Not on filedocumented in this encounter Additional Health Concerns Assessment Noted Time PHQ-9 Depression Total Score: 8 01/18/20 23 2:24 PM CDT documented as of this encounter Care Teams Forest Logistics Manager Relationship Specialty Start Date End Date Justen Gale MD #2 [facility] [address] [place] [address] PCP - General Family Medicine 10/17/17 David Roberts APRN, NETTA #[address] [place] [address] Nurse Practitioner Advanced Practice Nurse 01/31/22 Annel Rod MD #2 [facility] [address] [place] [address] Consulting Physician Endocrinology 07/01/22 documented as of this encounter
--- OUTSIDE RECORDS SUMMARY | 2024-04-26 02:55 | XMS_ITS | Encounter Summary ---
Author Organization [facility] Address [address] [place] [address] Phone Care Team Providers Care Bullard Operator Name Role Phone Justen Gale MD Primary Care Provider [phone] David Roberts APRN, TRIMMING OPERATOR Unavailable [phone] Eliel Bliss MD Unavailable Encounter Details Date Type Department Care Team (Late st Contact Info) Description 06/27/2023 Telephone [facility] - [place] #2 [place] [address] Eliel Bliss MD #[address] [address] Social History Tobacco Use Types [...] encounter Miscellaneous Notes * Addendum Note - Eliel Bliss MD - 06/27/2023 11:34 PM CSTAddended by: ELIEL BLISS on: 06/27/2023 11:34 PM Modules accepted: Orders OADER OPERATOR * Telephone Encounter - Eliel Bliss MD - 06/27/2023 11:34 PM CST Rx sent OADER OPERATOR * Telephone Encounter - Jenny Patel RMA - 06/27/2023 3:33 PM CST Patient was seen on 05-28-23 and insulin dosing was changed and patient is running low. Pharmacy needs new scripts sent to them so they can refill it with the new instructions OADER OPERATOR documented in this encounter Plan of Treatment Upcoming Encounters Date Type Department Care Team (Late st Contact Info) Description 05/17/2024 2:45 PM PAYLOADER OPERATOR Office Visit [facility] - Endocrinology [facility] #2 [place] [address] Eliel Bliss MD #2 [facility] [address] [place] [address] documented as of this encounter Visit Diagnoses Not on filedocumented in this encounter Additional Health Concerns Assessment Noted Time PHQ-9 Depression Total Score: 8 01/18/20 23 2:24 PM CDT documented as of this encounter Care Teams Bullard Operator Relationship Specialty Start Date End Date Justen Gale MD #2 [facility] [address] [place] [address] PCP - General Family Medicine 6/26/18 David Roberts APRN, CNP #2 [place] [address] Nurse Practitioner Advanced Practice Nurse 01/31/22 Eliel Bliss MD [facility] [phone] Consulting Physician Endocrinology 07/01/22 documented as of this encounter
--- OUTSIDE RECORDS SUMMARY | 2024-04-26 02:56 | XMS_ITS | Encounter Summary ---
Author Organization [facility] Address [address] [place] [address] Phone Care Team Providers Care Database Specialist Name Role Phone Justen Gale MD Primary Care Provider [phone] David Roberts APRN, LOG HAUL OPERATOR Unavailable [phone] Annel Rod MD Unavailable Reason for Visit * Reason Onset Date Comments Care Management 11/28/2022 Encounter Details Date Type Department Care Team (Late st Contact Info) Description 11/28/2022 Telephone [facility] - [facility]ology - [place] #2 [place] [address] Annel Rod MD #[address] [address] Care Management Social History Tobacco Use Types Packs/Day Years Used Date Smoking Tobacco: Never Smokeless Tobacco: Never Alcohol Use Standard Drinks/Week Comments No 0 (1 standard drink = 0.6 oz pur e alcohol) PHQ-2 Answer Date Recorded Total Score - Questions 1-9 0 08/23 Education Answer Date Recorded What is the [...] Telephone Encounter - Annel Rod MD - 11/28/2022 11:15 PM CDT Treatment consideration was discussed with her over the phone. PLAN: 1. Go to ER documented in this encounter Plan of Treatment Upcoming Encounters Date Type Department Care Team (Late st Contact Info) Description 05/17/2024 2:45 PM HEAD GROWER Office Visit [facility] - Endocrinology - [place] #2 [place] [address] Annel Rod MD #[address] [address] documented as of this encounter Visit Diagnoses Not on filedocumented in this encounter Additional Health Concerns Assessment Noted Time PHQ-9 Depression Total Score: 0 09/17/19 11:00 AM CDT documented as of this encounter Care Teams Database Specialist Relationship Specialty Start Date End Date Justen Gale MD #[address] [address] PCP - General Family Medicine 10/17/17 David Roberts APRN, LOG HAUL OPERATOR #2 [place] [address] Nurse Practitioner Advanced Practice Nurse 01/31/22 Annel Rod MD #[address] [address] Consulting Physician Endocrinology 07/01/22 documented as of this encounter
--- OUTSIDE RECORDS SUMMARY | 2024-04-26 02:56 | XMS_ITS | Encounter Summary ---
Author Organization [facility] Address [address] [place] [address] Phone Care Team Providers Care Documentation Engineer Name Role Phone Justen Gale MD Primary Care Provider [phone] David Roberts APRN, FLOOR SCRUBBER Unavailable [phone] Annel Rod MD Unavailable Encounter Details Date Type Department Care Team (Late st Contact Info) Description 11/08/2022 Telephone [facility] - [place] #2 [place] [address] Annel Rod MD #[address] [address] Social History Tobacco Use Types [...] Miscellaneous Notes * Telephone Encounter - Jennifer Wang RN - 11/08/2022 9:31 AM CDT Patient states she had to stop taking ozempic due to being hospitalized from side effects. Patient wanted you to be aware. documented in this encounter Plan of Treatment Upcoming Encounters Date Type Department Care Team (Late st Contact Info) Description 05/17/2024 2:45 PM LEADERSHIP DEVELOPMENT MANAGER Office Visit [facility] - Endocrinology - [place] #2 [facility] [place] [address] Annel Rod MD #[address] [place] [address] documented as of this encounter Visit Diagnoses Not on filedocumented in this encounter Additional Health Concerns Assessment Noted Time PHQ-9 Depression Total Score: 0 09/17/19 23 11:00 AM CDT documented as of this encounter Care Teams Documentation Engineer Relationship Specialty Start Date End Date Justen Gale MD #2 [facility] [address] [place] [address] PCP - General Family Medicine 10/17/17 David Roberts, PERINATAL TECHNICIAN, FLOOR SCRUBBER #2 [place] [address] Nurse Practitioner Advanced Practice Nurse 01/31/22 Annel Rod MD #2 [facility] [address] [place] [address] Consulting Physician Endocrinology 07/01/22 documented as of this encounter
--- OUTSIDE RECORDS SUMMARY | 2024-04-26 02:56 | XMS_ITS | Encounter Summary ---
Author Organization [facility] Address [address] [place] [address] Phone Care Team Providers Care Diesel Locomotive Crane Operator Name Role Phone Justen Gale MD Primary Care Provider [phone] David Roberts APRN, DIRECTOR RADIO Unavailable [phone] Reason for Visit * Reason Onset Date Comments Medication Management 06/21/2022 Encounter Details Date Type Department Care Team (Late st Contact Info) Description 06/21/2022 Telephone [facility] - Family Medicine [facility] #2 [place] [address] Justen Gale MD #[address] [address] Medication Management Social History Tobacco Use Types Packs/Day Years Used Date Smoking Tobacco: Never Smokeless Tobacco: Never Alcohol Use Standard Drinks/Week Comments No 0 (1 standard drink = 0.6 oz pur e alcohol) PHQ-2 Answer Date Recorded Total Score - Questions 1-9 0 05/0 12/2021 Education Answer Date Recorded What is the [...] Telephone Encounter - Stacy Huang RN - 06/21/2022 2:34 PM CST LVM that medication was called in. ILL TALLY CLERK * Telephone Encounter - Justen Gale MD - 06/21/2022 2:14 PM CST Please call Called in nausea medicine ILL TALLY CLERK documented in this encounter Plan of Treatment Upcoming Encounters Date Type Department Care Team (Late st Contact Info) Description 05/17/2024 2:45 PM SAWMILL TALLY CLERK Office Visit [facility] - Endocrinology - [place] #2 [place] [address] Annel Rod MD #2 [facility] [address] [place] [address] documented as of this encounter Visit Diagnoses Not on filedocumented in this encounter Additional Health Concerns Assessment Noted Time PHQ-9 Depression Total Score: 0 07/21/19 21 3:00 PM CDT documented as of this encounter Care Teams Diesel Locomotive Crane Operator Relationship Specialty Start Date End Date Justen Gale MD [facility] [address] [place] [address] PCP - General Family Medicine 10/17/17 David Roberts APRN, DIRECTOR RADIO #2 [place] [address] Nurse Practitioner Advanced Practice Nurse 01/31/22 documented as of this encounter
--- OUTSIDE RECORDS SUMMARY | 2024-04-26 02:56 | XMS_ITS | Encounter Summary ---
Author Organization [facility] Address [address] [facility] [place] [address] Phone Care Team Providers Care Insurance Collector Name Role Phone Justen Gale MD Primary Care Provider [phone] David Roberts APRN, EXHIBIT CARPENTER Unavailable [phone] Annel Rod MD Unavailable Reason for Visit * Reason Onset Date Comments High Blood Sugar 11/28/2022 Encounter Details Date Type Department Care Team (Late st Contact Info) Description 11/28/2022 [facility] [address] [place] [address] Annel Rod MD #[address] [address] High Blood Sugar Social History Tobacco Use [...] Telephone Encounter - Leah Garcia RN - 11/28/2022 10:23 PM CDT Reason for Disposition ? ? Blood glucose > 500 mg/dL (27.8 mmol/L) Protocols used: DIABETES - HIGH BLOOD SUGAR-A-AH * Telephone Encounter - Leah Garcia RN - 11/28/2022 10:19 PM CDT SITUATION: High blood sugar BACKGROUND: Symptoms have been going on for a week or so and patient has been getting cortisone injections in her back and knee and have an injection on 11/28/22. ASSESSMENT: Symptom Description / Location: on 11/28/22 last blood sugar approximately 2215 was high three times on her glucose monitor and patient has a really bad headache and I feel real hot and sweaty and Ifeel tired . Pain (0-10): not assessed Temp: not assessed Treatment / Response: patient took humalog Insulin 22 units - which is my base units approximately 2130 on 11/28/22 and this had not helped. RECOMMENDATION: See care advice and disposition for Guideline First positive answer recorded, all responses to prior questions were negative. If symptoms increase, change or if new symptoms develop, call your HCP or call back. Recommendations were based on caller information and is not a diagnosis. Verified and reviewed all triage information with caller. RN advised patient to go to Emergency Department or that she could call her Computational Linguist Dr Rod's office for after hours assistance and patient asked to be transferred to Dr Rod's office since this RN does not represent that provider and patient understands that if she cannot reach a provider atDr Rod's office she will go to the Emergency Department for evaluation. documented in this encounter Plan of Treatment Upcoming Encounters Date Type Department Care Team (Late st Contact Info) Description 05/17/2024 2:45 PM CLIN APPLICATION SPECIALIST Office Visit [facility] - Endocrinology - [place] #2 [place] [address] Annel Rod MD #2 [facility] [address] [place] [address] documented as of this encounter Visit Diagnoses Not on filedocumented in this encounter Additional Health Concerns Assessment Noted Time PHQ-9 Depression Total Score: 0 09/17/19 23 11:00 AM CDT documented as of this encounter Care Teams Insurance Collector Relationship Specialty Start Date End Date Justen Gale MD #[address] [address] PCP - General Family Medicine 10/17/17 David Roberts, MEMORIAL COUNSELOR, EXHIBIT CARPENTER #2 [place] [address] Nurse Practitioner Advanced Practice Nurse 01/31/22 Annel Rod MD #[address] [address] Consulting Physician Endocrinology 07/01/22 documented as of this encounter
--- OUTSIDE RECORDS SUMMARY | 2024-04-26 02:56 | XMS_ITS | Encounter Summary ---
Author Organization [facility] Address [address] [place] [address] Phone Care Team Providers Care Preschool Program Director Name Role Phone uJsten Gale MD Primary Care Provider [phone] David Roberts APRN, FASHION DESIGN PROFESSOR Unavailable [phone] Annel Rod MD Unavailable Reason for Visit * Reason Comments Follow-up Diabetes Mellitus a1c Encounter Details Date Type Department Care Team (Late st Contact Info) Description 09/14/2022 1:30 PM CDT Office Visit [facility] - Endocrinology - [place] #2 [place] [address] Annel Rod MD #[address] [address] Type 2 diabetes mellitus with diabetic polyneuropathy, with long-term current use of insulin (HCC) (Primary Dx); Class 3 severe obesity due to excess calories with serious comorbidity and body mass index (BMI) of 50.0 to 59.9 in adult (HCC); New medication added; Thyroid nodule; Hypoglycemia Discharge Disposition: Discharged to home or Selfcare Social History Tobacco Use Types Packs/Day Years Used Date Smoking Tobacco: Never Smokeless Tobacco: Never Alcohol Use Standard Drinks/Week Comments No 0 (1 standard drink = 0.6 oz pur e alcohol) PHQ-2 Answer Date Recorded Total Score - Questions 1-9 0 /12/2021 Education Answer Date Recorded What is the [...] suspected to have Coronavirus/COVID-19? No / Unsure 09/14/2022 1:22 PM CDT documented as of this encounter Last Filed Vital Signs Vital Sign Reading Time Taken Comments Blood Pressure 140/84 09/14/2022 1:28 PM CDT Pulse 86 09/14/2022 1:28 PM CDT Temperature 36.4 ??C (97.6 ??F) 09/14/2022 1:28 PM CD T Respiratory Rate 18 09/14/2022 1:28 PM CDT Oxygen Saturation 98% 09/14/2022 1:28 PM CDT Inhaled Oxygen Concentration - - Weight 132.1 kg (291 lb 3.2 oz) 09/14/2022 1:28 PM CDT Height - - Body Mass Index 55.02 07/05/2022 1:32 PM CDT documented in this encounter Patient Instructions * Patient Instructions* Annel Rod MD - 09/14/2022 1:30 PM CDT Please start Ozempic 0.25 mg SC weekly for 4 weeks, 0.5 mg SC weekly for 4 weeks, and increase it to 1 mg SC weekly Please take Lantus 50 units in the morning Please take Humalog 22 units before each meal Please use correctional [...] 300 +11 UNITS ABOVE 300 +12 UNITS documented in this encounter Progress Notes * Annel Rod MD - 09/14/2022 1:30 PM CDT Subject&Objective Karly Marques is a 67-year-old woman who comes to the Endocrinology office to discuss management of type 2 diabetes mellitus. The patient's diabetes is complicated by lower extremity sensory neuropathy. Other pertinent health history includes thyroid nodule, recurrent UTI, OA, hypertension, dyslipidemia, and obesity. The patient was initially diagnosed with diabetes approximately 11 years ago. Currently, the patient takes Lantus 50 units in the morning and Humalog 22 units before each meal for management of hyperglycemia. The patient reports infrequent, mild hypoglycemic events with intactsymptoms of hypoglycemia awareness. The patient denied severe low blood sugar events requiring third constitution party intervention. Unfortunately, the patient did not bring her glucose meter for download or a logbook for review at today's office appointment. Ms. Valero reported that morning blood sugars have been running between 120 and 130 mg/dL with blood sugars checked at other times of the day in the range of 160 to 200 mg/ dL. The patient states that her blood sugar runs much higher after receiving steroid injection. Hemoglobin A1c obtained by POC testing today was 8.6%, increased from the previousmeasurement of 6.9% obtained in July 2021. Physical Exam Vitals: 09/14/22 1328 BP: 140/84 Pulse: 86 Resp: 18 Temp: 97.6 ??F (36.4 ??C) SpO2: 98% Weight: 291 lb 3.2 oz (132.1 kg) Constitutional: appears well-developed and well-nourished. No acute distress. Head: Normocephalic and atraumatic. Cardiovascular: Normal rate and regular rhythm Pulmonary/Chest: Effort normal and breath sounds normal Lab Results Component Value Date HGBA1C 8.6 (A) 09/14/2022 08/16/22 Basic metabolic panel Order: [id number] Ref Range & Units 4 wk ago Sodium 135 - 145 mmol/L 132??Low?? Potassium, pl 3.3 - 4.9 mmol/L 4.1 Chloride 97 - 110 mmol/L 97 CO2 22 - 32 mmol/L 26 Anion gap 2 - 15 mmol/L 9 BUN 8 - 25 mg/dL 19 Creatinine 0.60 - 1.10 mg/dL 0.55??Low?? Glucose 70 - 199 mg/dL 255??High?? Calcium 8.5 - 10.3 mg/dL 10.3 Resulting Agency [facility] Specimen Collected: 08/16/22 15:10 Last Resulted: 08/16/22 15:28 FNA 04/22/22 FINAL DIAGNOSIS THYROID GLAND, RIGHT INFERIOR (2.8 CM), ULTRASOUND GUIDED FINE NEEDLE ASPIRATION: - ADEQUATE FOR INTERPRETATION. - BENIGN, CONSISTENT WITH A BENIGN FOLLICULAR NODULE (INCLUDES ADENOMATOID NODULE, COLLOID NODULE, ETC.). BETHESDA CLASS II. Assessment and Plan Assessment Karly Marques is an elderly woman with type 2 diabetes mellitus whose glycemic control was suboptimal based on both review of her capillary blood glucose record and today's hemoglobin A1c measurement. Treatment consideration and lifestyle modification were discussed with her at some length. [place] start Ozempic weekly injection and intensify lifestyle modification for management of hyperglycemia. The patient will return for office reevaluation in 1 month. PLAN: 1. Start Ozempic 0.25 mg SC weekly for 4 weeks, 0.5 mg SC weekly for 4 weeks and increase it to 1 mg SC weekly 2. Take Lantus 50 units at bedtime 3. Take Humalog 22 units before each meal 4. Correctional factor insulin dosed at 1:15 if CBG is > 140 mg/dl 5. Monitor blood sugar QAC/QHS 6. Bring CBG log for review 7. Contact Endocrinology Clinic for low blood sugar events 8. RTC in 1 month Thyroid nodule PLAN: 1. Consider surveillance thyroid ultrasound in February or March 2023 Obesity PLAN: 1. Low carb and calorie diet 2. Avoid snack and beverage between meal and at bedtime Hypoglycemia PLAN: 1. Consistent CHO diet 2. Rule of 15 Annel Rod MD 09/14/2022 documented in this encounter Plan of Treatment Upcoming Encounters Date Type Department Care Team (Late st Contact Info) Description 05/17/2024 2:45 PM CORE LAYING MACHINE OPERATOR Office Visit [facility] - [facility]ocr[facility] - [place] #2 [place] [address] Annel Rod MD #[address] [address] documented as of this encounter Procedures Procedure Name Priority Date/Time Associated Diagnosis Comments POCT GLYCOSYLATED HEMOGLOBIN Routine 09/14/2022 1:31 PM CDT Type 2 diabetes mellitus with diabetic polyneuropathy, with long-term current use of insulin (HCC) documented in this encounter Results * (ABNORMAL) POCT GLYCOSYLATED HEMOGLOBIN (09/14/2022 1:31 PM CDT) HGB-A1C 8.6(A) 4 - 6 % Blood 09/14/2022 1:31 PM CDT us Annel Rod MD POINT OF CARE TESTING (MANUAL) F inal Result documented in this encounter Visit Diagnoses Diagnosis Type 2 diabetes mellitus with diabetic polyneuropathy, with long-term current use of insulin (HCC)- Primary Class 3 severe obesity due to excess calories with serious comorbidity and body mass index (BMI) of 50.0 to 59.9 in adult (HCC) New medication added Thyroid nodule Nontoxic uninodular goiter Hypoglycemia Hypoglycemia, unspecified documented in this encounter Additional Health Concerns Assessment Noted Time PHQ-9 Depression Total Score: 0 07/21/19 21 3:00 PM CDT documented as of this encounter Care Teams Preschool Program Director Relationship Specialty Start Date End Date Justen Gale MD #2 [facility] [address] [place] [address] PCP - General Family Medicine 10/17/17 David Roberts APRN, FASHION DESIGN PROFESSOR #2 [place] [address] Nurse Practitioner Advanced Practice Nurse 01/31/22 Annel Rod MD #[address] [address] Consulting Physician Endocrinology 07/01/22 documented as of this encounter
--- OUTSIDE RECORDS SUMMARY | 2024-04-26 02:56 | XMS_ITS | Encounter Summary ---
Author Organization [facility] Address [address] [place] [address] Phone Care Team Providers Care Dairy Feed Mixing Operator Name Role Phone Justen Gale MD Primary Care Provider [phone] David Roberts APRN, FLUID DYNAMICIST Unavailable [phone] Annel Rod MD Unavailable Reason for Visit * Reason Onset Date Comments Fall 12/17/2022 Headache 12/17/2022 Nausea 12/17/2022 Encounter Details Date Type Department Care Team (Late st Contact Info) Description 12/17/2022 Nurse Triage [facility] [address] [place] [address] Justen Gale MD #[address] [address] Fall; Headache; Nausea Social History Tobacco Use Types Packs/Day Years [...] encounter Miscellaneous Notes * Telephone Encounter - Kasie Renteria RN - 12/17/2022 12:27 PM CDT SITUATION: Karly is calling Feels tired, nauseous and has a headache- comes and goes Back of head hurts, forehead and eyebrows BACKGROUND: Fell 12/11/22 and went to ED Fell back words onto mulch, hit head on brick edging. On Xarelto ASSESSMENT: Symptom Description / Location: Vomited once this week Can't eat Pain (0-10): 6/10- can't function Temp: Treatment / Response: went to ED RECOMMENDATION: See care advice and disposition for Guideline Agreed to go to ED as soon as her daughter can give her a ride. First positive answer recorded, all responses to prior questions were negative. If symptoms increase, change or if new symptoms develop, call your HCP or call back. Recommendations were based on caller information and is not a diagnosis. Verified and reviewed all triage information with caller. Reason for Disposition ??? Followed a head injury ??? Vomiting once or more Protocols used: [id number], HEAD INJURY-A-AH documented in this encounter Plan of Treatment Upcoming Encounters Date Type Department Care Team (Late st Contact Info) Description 05/17/2024 2:45 PM CRUSHER FOREMAN Office Visit [facility] - Endocrinology - [place] #[address] [place] [address] Annel Rod MD #[address] [facility] [address] [phone] documented as of this encounter Visit Diagnoses Not on filedocumented in this encounter Additional Health Concerns Assessment Noted Time PHQ-9 Depression Total Score: 0 09/17/19 11:00 AM CDT documented as of this encounter Care Teams Dairy Feed Mixing Operator Relationship Specialty Start Date End Date Justen Gale MD #2 [facility] [address] [place] [address] PCP - General Family Medicine 10/17/17 David Roberts APRN, FLUID DYNAMICIST #2 [place] [address] Nurse Practitioner Advanced Practice Nurse 01/31/22 Annel Rod MD #[address] [address] Consulting Physician Endocrinology 07/01/22 documented as of this encounter
--- OUTSIDE RECORDS SUMMARY | 2024-04-26 02:56 | XMS_ITS | Encounter Summary ---
Author Organization [facility] Address [address] [place] [address] Phone Care Team Providers Care Cargo Inspector Name Role Phone Justen Gale MD Primary Care Provider [phone] David Roberts APRN, DIRECTOR OF MEDICAL STAFF SERVICES Unavailable [phone] Reason for Visit * Reason Onset Date Comments Referral 05/04/2022 Encounter Details Date Type Department Care Team (Late st Contact Info) Description 05/04/2022 Telephone [facility] [address] [place] [address] Justen Gale MD [address] [address] Referral Social History Tobacco Use Types Packs/Day [...] suspected to have Coronavirus/COVID-19? No / Unsure 05/02/2022 3:22 PM CURRICULUM AND INSTRUCTION SPECIALIST documented as of this encounter Miscellaneous Notes * Addendum Note - Marlys Lane RN - 05/13/2022 3:33 PM CSTAddended by: MARLYS LANE. on: 05/13/2022 03:33 PM Modules accepted: Orders ICULUM AND INSTRUCTION SPECIALIST * Telephone Encounter - Marlys Lane RN - 05/13/2022 3:33 PM CST See other telephone encounter dated 05/04/22. ICULUM AND INSTRUCTION SPECIALIST * Addendum Note - Marlys Lane RN - 05/04/2022 2:23 PM CSTAddended by: MARLYS LANE on: 05/04/2022 02:23 PM Modules accepted: Orders ICULUM AND INSTRUCTION SPECIALIST * Telephone Encounter - Marlys Lane RN - 05/04/2022 2:11 PM CST Patient calling and stating that Dr. Ferrell is not taking new patients. States that she needs referral to be seen at the Division of Allergy and Immunology at [facility]. States that fax number is [phone]. Called referral department to see if provider can be changed or if new referral needs placed. Howard Childs in referral department, who states that a new referral will need placed. Would provider bewilling to order new referral? New referral pended for your review. Cancelled first referral. States that she was advised to have medications that she is allergic to included in the referral. ICULUM AND INSTRUCTION SPECIALIST * Telephone Encounter - Gianna Aranda RN - 05/04/2022 1:44 PM CURRICULUM AND INSTRUCTION SPECIALIST Patient is requesting Ext allergy referral to Dr. Gil Ferrell in [place]. Dr. Ferrell tests for medication allergies and she is requesting a referral to him since she is allergic to so many antibiotics and gets frequent UTI's. Referral pended for review, please advise and notify patient. Thank you. ICULUM AND INSTRUCTION SPECIALIST documented in this encounter Plan of Treatment Upcoming Encounters Date Type Department Care Team (Late st Contact Info) Description 05/17/2024 2:45 PM CURRICULUM AND INSTRUCTION SPECIALIST Office Visit [facility] - Endocrinology [facility] #[address] [place] [address] Annel Rod MD #2 [facility] [address] [place] [address] documented as of this encounter Visit Diagnoses Diagnosis Environmental and seasonal allergies- Primary documented in this encounter Additional Health Concerns Assessment Noted Time PHQ-9 Depression Total Score: 0 07/21/19 21 3:00 PM CDT documented as of this encounter Care Teams Cargo Inspector Relationship Specialty Start Date End Date Justen Gale MD #2 [facility] [address] [place] [address] PCP - General Family Medicine 10/17/17 David Roberts TYPE BAR AND SEGMENT ASSEMBLER, DIRECTOR OF MEDICAL STAFF SERVICES [address] [place] [address] Nurse Practitioner Advanced Practice Nurse 01/31/22 documented as of this encounter
--- OUTSIDE RECORDS SUMMARY | 2024-04-26 02:56 | XMS_ITS | Encounter Summary ---
Author Organization [facility] Address [address] [place] [address] Phone Care Team Providers Care Data Migration Lead Name Role Phone Justen Gale MD Primary Care Provider [phone] David Roberts APRN, PATCH MACHINE OPERATOR Unavailable [phone] Annel Rod MD Unavailable Reason for Referral * Consult, Test & Initiate Treatment (Routine) - Closed Specialty Diagnoses / Procedures Referred By Contkristina t Referred To Contact Neurology Diagnoses Concussion without loss of consciousness, subsequent encounter Catrina Quiñonez MD [address] [place] [address] Phone: tel: fax: [facility] Neurology [facility] [address] [place] [address] Phone: tel: fax: Referral ID Status Reason Start Date Expiration Date Visits Re quested Visits Authorized [id number] Closed 01/17/2023 1 1 Scheduling Instructions Karly is being referred for concussion. Please contact patient for scheduling questions or concerns. Reason for Visit * Reason Comments Follow-up Er f/u post concussi on Encounter Details Date Type Department Care Team (Late st Contact Info) Description 01/17/2023 2:20 PM CDT Office Visit [facility] [address] [place] [address] Catrina Quiñonez MD [address] [place] [address] Concussion without loss of consciousness, subsequent encounter (Primary Dx); Neck pain; Anxiety Discharge Disposition: Discharged to home or Selfcare [...] Sign Reading Time Taken Comments Blood Pressure 128/86 01/17/2023 2:25 PM CDT Pulse 88 01/17/2023 2:25 PM CDT Temperature 36.6 ??C (97.8 ??F) 01/17/2023 2:25 PM CD T Respiratory Rate 18 01/17/2023 2:25 PM CDT Oxygen Saturation 97% 01/17/2023 2:25 PM CDT Inhaled Oxygen Concentration - - Weight 128.6 kg (283 lb 8 oz) 01/17/2023 2:25 PM CDT Height 154.9 cm (5' 1 ) 01/17/2023 2:25 PM CDT Body Mass Index 53.57 01/17/2023 2:25 PM CDT documented in this encounter Functional [...] Deborah Yao documented as of this encounter Progress Notes * Deborah Yao - 01/17/2023 2:20 PM CDT Karly Marques, 67 y.o., female is here for Follow-up (Er f/u post concussion ) Medication Refills: Patient reports/denies need for medication refills. Orders Pended: no Requested Prescriptions No prescriptions requested or ordered in this encounter Home Medications Medication Sig Start Date End Date Taking? Authorizing Provider amitriptyline (ELAVIL) 25 MG Tablet nightly. 02/18/19 Yes Tyler Smith MD B-D ULTRAFINE III SHORT [...] sensor every 14 days. E11.42, insulin dependent 11/15/22 Yes Annel Rod MD diphenhydrAMINE (BENADRYL) 25 MG Capsule Take 25 mg by mouth every 6 hours as needed. Patient not taking: Reported on 04/22/2022 Tyler Smith MD exemestane (AROMASIN) 25 MG Tablet Take 25 mg by mouth daily. Yes Tyler Smith MD Glucose Blood (ONE TOUCH ULTRA TEST) Strip Test four times daily. 02/11/20 Yes Annel Rod MD HumaLOG KwikCholo 100 UNIT/ML Solution Pen-injector ADMINSTER 22 UNITS UNDER THE SKIN BEFORE EACH MEAL, ISF OF 1:15 OF IF> 150MG/DL MAX DAILY DOSE OF 100 UNITS 11/24/22 Yes Annel Rod MD HYDROcodone-acetaminophen (NORCO) 7.5-325 MG Tablet TK 1 T PO QID PRN. DO NOT FILL UNTIL Yes Tyler Smith MD hydrOXYzine (ATARAX) 10 MG Tablet 09/14/22 Tyler Smith MD hydrOXYzine (ATARAX) 25 MG Tablet Take 25 mg by mouth. Patient not taking: Reported on 01/15/2023 06/08/22 Tyler Smith MD Lantus SoloStar 100 UNIT/ML Solution Pen-injector ADMINISTER 50 UNITS UNDER THE SKIN EVERY MORNING 08/30/22 Yes Justen Gale MD losartan (COZAAR) 50 MG Tablet Take 1 Tablet by mouth daily. Patient not taking: Reported on 01/15/2023 10/19/22 Justen Gale MD methenamine (HIPREX) 1 GM Tablet Take 1,000 mg by mouth. 04/27/22 Yes Tyler Smith MD methenamine (HIPREX) 1 GM Tablet Take 1 g by mouth 2 times daily. Yes Tyler Smith MD metoprolol tartrate (LOPRESSOR) 25 MG Tablet Take 1 Tablet by mouth 2 times daily. Patient not taking: Reported on 01/15/2023 07/05/22 Pili Elkins APRN, PATCH MACHINE OPERATOR [facility]. Devices [facility] Supply and instructions: 09/09/20 Yes Justen Gale MD Myrbetriq 50 MG TABLET SR 24 HR Take 50 mg by mouth daily. Patient not taking: Reported on 05/14/2022 04/27/22 Tyler Smith MD naloxone HCl (Narcan) 4 MG/0.1ML Liquid as needed 05/13/21 Yes Tyler Smith MD nystatin [id number] UNIT/GM Powder 11/09/21 Yes Tyler Smith MD ondansetron (Zofran) 4 MG Tablet Take 1 Tablet by mouth every 8 hours as needed for Nausea - 1st line. 06/21/22 Yes Justen Gale MD OneTouch Delica Lancets 33G [facility] 1 Lancet by Does not apply route [...] EVERY NIGHT 09/22/22 Yes Justen Gale MD Semaglutide,0.25 or 0.5MG/DOS, (Ozempic, 0.25 or 0.5 MG/DOSE,) 2 MG/3ML Solution Pen-injector 0.25 mg SC weekly for 4 weeks and 0.5 mg SC weekly for 4 weeks Patient not taking: Reported on 01/15/2023 09/14/22 Annel Rod MD trospium (SANCTURA) 20 MG Tablet Take 20 mg by mouth 2 times daily. Patient not taking: Reported on 07/05/2022 ProviderTyler MD There are no discontinued medications. I have reviewed the home medication list with the patient and have reconciled discrepancies. The list is accurate to the best of my knowledge. Smoking Status: Social History Tobacco Use ??? Smoking status: Never ??? Smokeless tobacco: Never Vaping Use ??? Vaping Use: Never used Substance Use Topics ??? Alcohol use: No ??? Drug use: No Smoking Cessation Counseling Given: no Health Care Maintenance: Health Maintenance Due Topic Date Due ??? Diabetes: Eye Exam Never done ??? DEXA Bone Density Never done ??? Hepatitis C Virus (HCV) Screening Never done ??? Pneumococcal Immunization (65+ years) (1 - PCV) Never done ??? Zoster Immunization (1 of 2) Never done ??? Diabetes: Foot Exam 08/12/2020 ??? SARS-COV-2 Immunization (3 - Booster for Lay series) 06/29/2021 ??? Influenza Immunization (1) 12/23/2022 Orders Pended: no The following BPA's have been addressed with the patient today: Depression, Fall Risk and Nutrition * Catrina Quiñonez MD - 01/17/2023 2:20 PM CDT Er f/u of concussion, feels she is worsening and has more symptoms than when she had her injury. Neurologist unable to get MRI due to pain stimulator. Has had 2 CT (one with contrast and 1 without) CT of her spine also was negative Last 4 -5 days she has had more anxiety, I am very emotional cannot sleep. Cannot be in a crowded room. Pain in right side of neck, can come through to her chest. Can occ make her SOB. Will sit up in the middle of the night, SOB, which lasts 2-3 minutes. She still has headaches, tremors in right. She was scheduled for a reimplantation of spinal stimulator. Current stimulator is not functional. She has no prior history of anxiety. She was started on amitriptyline for neuropathy. She is under the care of pain management for chronic lower back pain. She is on norco which dulls the pain in her head and neck- takes it 4 times a day as needed. She lives with her daughter. She is able to do everything around the house. States just gets unmotivated. Cannot turn her head really well. 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 Past Medical History Positives Diagnosis Date ??? Breast cancer (HCC) ??? Diabetes (HCC) ??? DVT (deep venous thrombosis) (HCC) ??? High blood pressure ??? History of pulmonary embolus (PE) ??? Hyperthyroidism ??? Neuropathy ??? Osteoarthritis ??? Restless leg syndrome ??? Sciatica ??? Sleep apnea ??? Spinal stenosis Allergies Allergen Reactions ??? Ceftriaxone Anaphylaxis ??? Cephalosporins Anaphylaxis ??? Dermatological Products, Misc. Hives and Itching SURGICAL TAPE ??? Lorazepam Other (see Comments) and Unknown Aggrevates restless leg syndrome Aggrevates restless leg syndrome ??? Latex Rash ??? Levofloxacin Rash and Other (see Comments) ??? Macrobid [Nitrofurantoin] Itching ??? Meropenem Rash ??? Lisinopril Swelling Lower extremity edema ??? Medical Adhesive Remover Rash ??? Norvasc [Amlodipine Besylate] Swelling Leg swelling ??? Oxycodone Unknown ??? Reglan [Metoclopramide Hcl] Unknown ??? Reslizumab Unknown ??? Ketorolac Itching ??? Pregabalin Other (see Comments) ??? Sulfamethoxazole-Trimethoprim Itching ??? Trazodone Other (see Comments) Shaky, restlessness, itching, throat swelling PHYSICAL EXAM Vitals: 01/17/23 1425 BP: 128/86 Pulse: 88 Resp: 18 Temp: 97.8 ??F (36.6 ??C) TempSrc: Temporal SpO2: 97% Weight: 283 lb 8 oz (128.6 kg) Height: 5' 1 (1.549 m) Body mass index is 53.57 kg/m??. General appearance: alert, no distress, cooperative, appears stated age PERRLA Lungs: no acute distress, clear to auscultation bilaterally Heart: regular rate and rhythm, S1, S2 normal, no murmur, click, rub or gallop Marine Firefighter strength normal ASSESSMENT/PLAN Diagnoses and all orders for this visit: Concussion without loss of consciousness, subsequent encounter - NEUROLOGY REFERRAL; Future Neck pain Anxiety Other orders - hydrOXYzine (ATARAX) 10 MG Tablet; Take 1 Tablet by mouth every 6 hours as needed for Anxiety. - cyclobenzaprine (FLEXERIL) 5 MG Tablet; Take 1 Tablet by mouth nightly for 14 days. - INFLUENZA QUADRIVALENT ADJUVANTED VACCINE IM - INFLUENZA IMMUNIZATION QUESTIONS continue current meds. Catrina Quiñonez MD * Melani Vargas CMA - 01/17/2023 2:20 PM CDT Karly is here for Flu immunizations per order of Dr. Quiñonez dated 01/17/23. Administered in right deltoid . Vaccine Information Sheet(s) were given on 01/17/23. Verbal consent was obtained. Karly tolerated the immunization well without incident. See Immunization activity for details. documented in this encounter Plan of Treatment Upcoming Encounters Date Type Department Care Team (Late st Contact Info) Description 05/17/2024 2:45 PM ENTRY LEVEL ASSISTANT MANAGER Office Visit [facility] - Endocrinology - [place] [address] [place] [address] Annel Rod MD #[address] [address] Scheduled Referrals Name Type Priority Associated Diagnoses Orde r Schedule NEUROLOGY REFERRAL Outpatient Referral Routine Concussion without loss of consciousness, subsequent encounter Expected: 04/27/2023, Expires: 10/26/2023 documented as of this encounter Visit Diagnoses Diagnosis Concussion without loss of consciousness, subsequent encounter- Primary Neck pain Cervicalgia Anxiety Anxiety state, unspecified documented in this encounter Additional Health Concerns Assessment Noted Time PHQ-9 Depression Total Score: 8 01/18/20 2:24 PM CDT documented as of this encounter Care Teams Data Migration Lead Relationship Specialty Start Date End Date Justen Gale MD #[address] [address] PCP - General Family Medicine 10/17/17 David Roberts, CUSTOMER SUPPORT COORDINATOR, PATCH MACHINE OPERATOR [address] [place] [address] Nurse Practitioner Advanced Practice Nurse 01/31/22 Annel Rod MD #[address] [address] Consulting Physician Endocrinology 07/01/22 documented as of this encounter
--- OUTSIDE RECORDS SUMMARY | 2024-04-26 02:56 | XMS_ITS | Encounter Summary ---
Author Organization [facility] Care Team Providers Care Evidence Specialist Name Role Phone Justen Gale MD Primary Care Provider [phone] David Roberts APRN, MARKETING OPERATIONS SPECIALIST Unavailable [phone] Annel Rod MD Unavailable Encounter Details Date Type Department Care Team (Latest Contact Info) Description 09/14/2022 Travel Social History Tobacco Use Types Packs/Day [...] PM CDT documented as of this encounter Plan of Treatment Upcoming Encounters Date Type Department Care Team ( Contact Info) Description 05/17/2024 2:45 PM ENERGY AND SUSTAINABILITY MANAGER Office Visit [facility] - Endocrinology - [place] [address] [place] [address] Annel Rod MD [address] [address] documented as of this encounter Visit Diagnoses Not on filedocumented in this encounter Additional Health Concerns Assessment Noted Time PHQ-9 Depression Total Score: 0 07/21/19 21 3:00 PM CDT documented as of this encounter Care Teams Evidence Specialist Relationship Specialty Start Date End Date Justen Gale MD [address] [address] PCP - General Family Medicine 10/17/17 David Roberts, ALLIED HEALTH TEACHER, MARKETING OPERATIONS SPECIALIST [address] [place] [address] Nurse Practitioner Advanced Practice Nurse 01/31/22 Annel Rod MD #[address] [address] Consulting Physician Endocrinology 07/01/22 documented as of this encounter
--- OUTSIDE RECORDS SUMMARY | 2024-04-26 02:56 | XMS_ITS | Encounter Summary ---
Author Organization [facility] Address [address] [place] [address] Phone Care Team Providers Care Cotton Presser Name Role Phone Justen Gale MD Primary Care Provider [phone] David Roberts APRN, STUDENT FINANCE SPECIALIST Unavailable [phone] Annel Rod MD Unavailable Reason for Visit * Reason Onset Date Comments High Blood Sugar 08/11/2022 Encounter Details Date Type Department Care Team (Late st Contact Info) Description 08/11/2022 Nurse Triage [facility] [address] [place] [address] Justen Gale MD #[address] [address] High Blood Sugar Social History Tobacco Use [...] Telephone Encounter - Damon Mullins RN - 08/11/2022 11:31 PM CDT SITUATION: High blood sugar BACKGROUND: Symptom onset this evening ASSESSMENT: Symptom Description / Location: Patient received steroid injections today from [facility] [place] In her back Sugar is spiking Current Blood sugar is 512 Increased sandhya Feels weird Patient has been taking all her diabetic medications as prescribed Denies: Nausea, vomiting, blurred vision. Denies chest pain, difficulty breathing, and shortness ofbreath. Pain: Denies Temp/Route: WNL I+O: WNL Treatment / Response: Drinking a lot of water, Did sliding scale, RECOMMENDATION: See care advice and disposition for Guideline Go to ED now, Patient will go to [facility] in [place]. Patient will have someone drive. Allergies, medications, and pharmacy verified. Assisted services [...] with caller. Reason for Disposition ? ? Blood glucose > 500 mg/dL (27.8 mmol/L) Protocols used: DIABETES - HIGH BLOOD SUGAR-A- documented in this encounter Plan of Treatment Upcoming Encounters Date Type Department Care Team (Late st Contact Info) Description 05/17/2024 2:45 PM DRILL OPERATOR PNEUMATIC Office Visit [facility] - Endocrinology - [place] [address] [place] [id number] Annel Rod MD #[address] [address] documented as of this encounter Visit Diagnoses Not on filedocumented in this encounter Additional Health Concerns Assessment Noted Time PHQ-9 Depression Total Score: 0 07/21/19 21 3:00 PM CDT documented as of this encounter Care Teams Cotton Presser Relationship Specialty Start Date End Date Justen Gale MD #2 [facility] [address] [place] [address] PCP - General Family Medicine 10/17/17 David Roberts APRN, STUDENT FINANCE SPECIALIST [address] [place] [address] Nurse Practitioner Advanced Practice Nurse 01/31/22 Annel Rod MD #2 [facility] [address] [place] [address] Consulting Physician Endocrinology 07/01/22 documented as of this encounter
--- OUTSIDE RECORDS SUMMARY | 2024-04-26 02:56 | XMS_ITS | Encounter Summary ---
Author Organization [facility] Address [address] [place] [address] Phone Care Team Providers Care Crusher Loader Operator Name Role Phone Justen Gale MD Primary Care Provider [phone] David Roberts APRN, [employer]PER[employer] Unavailable [phone] Annel Rod MD Unavailable Reason for Visit * Reason Comments Preventive Care Patient is here for a pap. She said she thinks she may also be getting a UTI, she has a lot of pressure and going to the bathroom every 15 minutes. Encounter Details Date Type Department Care Team (Late st Contact Info) Description 07/05/2022 1:15 PM CDT Office Visit [facility] - [facility] [address] [place] [address] Pili Elkins APRN, [employer] [address] [address] Increased urinary frequency (Primary Dx); Encounter for gynecological examination with abnormal finding; Vaginal irritation; Encounter for screening for human papillomavirus (HPV); Essential hypertension Discharge Disposition: Discharged to home or Selfcare Social History Tobacco Use Types Packs/Day Years Used Date Smoking Tobacco: Never Smokeless Tobacco: Never Tobacco Cessation:Counseling Given: Yes [...] suspected to have Coronavirus/COVID-19? No / Unsure 07/05/2022 12:58 PM CDT documented as of this encounter Last Filed Vital Signs Vital Sign Reading Time Taken Comments Blood Pressure 164/88 07/05/2022 1:32 PM CDT Pulse 81 07/05/2022 1:32 PM CDT Temperature 36.4 ??C (97.6 ??F) 07/05/2022 1:32 PM CD T Respiratory Rate 14 07/05/2022 1:32 PM CDT Oxygen Saturation 100% 07/05/2022 1:32 PM CDT Inhaled Oxygen Concentration - - Weight 132 kg (291 lb) 07/05/2022 1:32 PM CDT Height 154.9 cm (5' 1 ) 07/05/2022 1:32 PM CDT Body Mass Index 54.98 07/05/2022 1:32 PM CDT documented in this encounter Progress Notes * Onel Hawkins - 07/05/2022 1:15 PM CDT Karly Winston Marques, 67 y.o., female is here for Preventive Care (Patient is here for a pap. She saidshe thinks she may also be getting a UTI, she has a lot of pressure and going to the bathroom every15 minutes.) Medication Refills: Patient reports/denies need for medication refills. Orders Pended: no Requested Prescriptions No prescriptions requested or ordered in this encounter Home Medications Medication Sig Start Date End Date Taking? Authorizing Provider amitriptyline (ELAVIL) 25 MG Tablet nightly. 02/18/19 Yes Tyler Smith MD amLODIPine (NORVASC) 5 MG Tablet Take 1 Tablet by mouth daily. Patient not taking: Reported on 07/05/2022 05/02/22 Justen Gale MD B-D ULTRAFINE III SHORT PEN 31G X 8 MM Misc USE 6 TIMES DAILY DIRECTED 06/16/22 Yes Justen Gale MD Blood Glucose Monitoring Suppl Device Diagnosis: Diabetes Type 2 Blood testing frequency: 4 times aday 11/21/17 Justen Gale MD diphenhydrAMINE (BENADRYL) 25 MG [...] MD HumaLOG KwikPen 100 UNIT/ML Solution Pen-injector ADMINISTER 22 UNITS BEFORE EACH MEAL, ISF OF 1:15IF>150MG/DL, MAX DAILY DOSE OF 100 UNITS 05/25/22 Yes Annel Rod MD HYDROcodone-acetaminophen (NORCO) 7.5-325 MG Tablet TK 1 T PO QID PRN. DO NOT FILL UNTIL Yes Tyler Smith MD hydrOXYzine (ATARAX) 25 MG Tablet Take 25 mg by mouth. 06/08/22 Yes Tyler Smith MD Lantus SoloStar 100 UNIT/ML Solution Pen-injector ADMINISTER 50 UNITS UNDER THE SKIN EVERY MORNING 12/07/21 Yes Justen Gale MD methenamine (HIPREX) 1 GM Tablet Take 1 g by mouth 2 times daily. Yes Tyler Smith MD Misc. Devices Misc Supply and instructions: 09/09/20 Yes Justen Gale MD Myrbetriq 50 MG TABLET SR 24 HR Take 50 mg by mouth daily. Patient not taking: Reported on 05/14/2022 04/27/22 Tyler Smith MD naloxone HCl (Narcan) 4 MG/0.1ML Liquid as needed 05/13/21 Tyler Smith MD nitrofurantoin, macrocrystal-monohydrate, (MACROBID) 100 MG Capsule Take 100 mg by mouth 2 times daily. Patient not taking: Reported on 05/14/2022 Tyler Smith MD nystatin [id number] UNIT/GM Powder APPLY TO THE AFFECTED AREA THREE TIMES DAILY FOR 14 DAYS Patient not taking: Reported on 03/01/2022 11/09/21 Tyler Smith MD ondansetron (Zofran) 4 MG Tablet Take 1 Tablet by mouth every 8 hours as needed for Nausea - 1st line. 06/21/22 Yes Justen Gale MD ondansetron (Zofran) 4 MG Tablet Take 1 Tablet by mouth every 8 hours as needed for Nausea - 1st line. Patient not taking: Reported on 05/14/2022 01/03/22 Dannielle Berg PAC OneTouch Delica Lancets 33G Misc 1 Lancet [...] TAKE 1 TABLET BY MOUTH EVERY NIGHT 12/03/21 Yes Justen Gale MD trospium (SANCTURA) 20 MG Tablet Take 20 mg by mouth 2 times daily. Patient not taking: Reported on 07/05/2022 Tyler Smith MD There are no discontinued medications. I [...] Drug use: No Smoking Cessation Counseling Given: yes Health Care Maintenance: Health Maintenance Due Topic Date Due ??? Mammogram Unilateral Never done ??? Diabetes: Eye Exam Never done ??? DEXA Bone Density Never done ??? Pneumococcal Immunization (65+ years) (1 - PCV) Never done ??? Zoster Immunization (1 of 2) Never done ??? Diabetes: Foot Exam 08/12/2020 ??? SARS-COV-2 Immunization (3 - Booster for Lay series) 06/29/2021 Orders Pended: no The following BPA's have been addressed with the patient today: Mammogram, Pap, Smoking, Depression, Fall Risk, Nutrition, Advanced Care Planning and HCC * Pili Elkins APRN, NETTA - 07/05/2022 1:15 PM CDT Images from the original note were not included. [facility] [address] [address] Dept: [phone] Dept Loc: [phone] Loc Patient: Karly Marques : 1955 Sex: female Subjective Subjective: HPI: Karly Marques presents for Preventive Care (Patient is here for a pap. She said she thinksshe may also be getting a UTI, she has a lot of pressure and going to the bathroom every 15 minutes.) . Karly Marques presented today for a preventive visit and an illness visit for hypertension, urinary frequency, medication reaction and gingival bleeding. We discussed the differences between a preventive visit vs. illness visit, how they are two separate services and each service has a separatefee. Karly Marques chose to proceed with both services today for their convenience. Karly Marques voiced understanding that insurance reimbursement is determined by the insurance carrier???s coverage policy. Patient is here for preventative Pap smear. She reports it has been over 5 years since her previousPap smears. She is postmenopausal. Denies history of abnormal Paps. Denies concern for STDs. She has history of breast cancer and had a bilateral mastectomy. Patient also has complaints of urinary frequency, burning, and irritation. She is history of chronic UTIs and does see Urology. She reports this has been ongoing for the past week. She denies fever, chills, or flank pain. Patient also reports that she is noted bleeding in her gums when she brushes her teeth which is newfor her. She is on Xarelto. She reports she does brush her teeth twice a day, uses mouthwash, and flosses 3 times a week. She is also concerned due to her hypertension and reaction to amlodipine. She reports that she was started on amlodipine in April. She reports approximally 2 weeks ago she developed nausea, itching, and leg swelling. She sits she stopped it about a week ago when her symptoms improved. Her blood pressure is elevated today but she reports that her blood pressure does fluctuate. Denies chest pain,shortness breast, or lightheadedness. She does report intermittent headaches in the occipital location that his an aching pain. She is also gained 7 lb since her last visit. Current Outpatient Medications Medication Sig Dispense Refill ??? amitriptyline (ELAVIL) 25 MG Tablet nightly. ??? B-D ULTRAFINE III SHORT PEN 31G X 8 MM Misc USE 6 TIMES DAILY DIRECTED 300 Pen Needle 1 ??? Blood Glucose Monitoring Suppl Device Diagnosis: Diabetes Type 2 Blood testing frequency: 4 times a day 1 Each 0 ??? diphenhydrAMINE (BENADRYL) 25 MG Capsule Take 25 mg by mouth every 6 hours as needed. (Patient not taking: Reported on 04/22/2022) ??? exemestane (AROMASIN) 25 MG Tablet Take 25 mg by mouth daily. ??? Glucose Blood (ONE TOUCH ULTRA TEST) Strip Test four times daily. 400 Strip 3 ??? HumaLOG KwikPen 100 UNIT/ML Solution Pen-injector ADMINISTER 22 UNITS BEFORE EACH MEAL, ISF OF 1:15 IF>150MG/DL, MAX DAILY DOSE OF 100 UNITS 30 mL 0 ??? HYDROcodone-acetaminophen (NORCO) 7.5-325 MG Tablet TK 1 T PO QID PRN. DO NOT FILL UNTIL 02/13/2019 0 ??? hydrOXYzine (ATARAX) 25 MG Tablet Take 25 mg by mouth. ??? Lantus SoloStar 100 UNIT/ML Solution Pen-injector ADMINISTER 50 UNITS UNDER THE SKIN EVERY MORNING 45 mL 1 ??? methenamine (HIPREX) 1 GM Tablet Take 1 g by mouth 2 times daily. ??? Misc. Devices Misc Supply and instructions: 1 Each 0 ??? Myrbetriq 50 MG TABLET SR 24 HR Take 50 mg by mouth daily. (Patient not taking: Reported on 05/14/2022) ??? naloxone HCl (Narcan) 4 MG/0.1ML Liquid as needed ??? nitrofurantoin, macrocrystal-monohydrate, (MACROBID) 100 MG Capsule Take 100 mg by mouth 2 times daily. (Patient not taking: Reported on 05/14/2022) ??? nystatin [id number] UNIT/GM Powder APPLY TO THE AFFECTED AREA THREE TIMES DAILY FOR 14 DAYS (Patient not taking: Reported on 03/01/2022) ??? ondansetron (Zofran) 4 MG Tablet Take 1 Tablet by mouth every 8 hours as needed for Nausea - 1st line. 15 Tablet 0 ??? ondansetron (Zofran) 4 MG Tablet Take 1 Tablet by mouth every 8 hours as needed for Nausea - 1st line. (Patient not taking: Reported on 05/14/2022) 15 Tablet 0 ??? OneTouch Delica Lancets 33G [facility] 1 Lancet by Does not apply route 4 times daily. 400 Lancet 3 ??? oxybutynin (DITROPAN-XL) 10 MG TABLET SR 24 HR Take 10 mg by mouth in the morning and at bedtime. ??? rivaroxaban (XARELTO) 20 MG Tablet Take 20 mg by mouth daily. ??? rOPINIROLE (REQUIP) 5 MG Tablet TAKE 1 TABLET BY MOUTH EVERY NIGHT 90 Tablet 2 ??? trospium (SANCTURA) 20 MG Tablet Take 20 mg by mouth 2 times daily. (Patient not taking: Reported on 07/05/2022) No current facility-administered medications for this visit. Allergies: Allergies Description Type Start Date End Date Comment Verified Fuse Cutter Ceftriaxone Allergy 14-Sep-2017 Severity: High Reactions: Anaphylaxis Kerry Selby, COMMUNITY MUSIC THERAPIST Cephalosporins Allergy 22-Mar-2017 Severity: High Reactions: Anaphylaxis Yolande Davis, COMMUNITY MUSIC THERAPIST Dermatological Products, [facility]. Allergy 12-Oct-2021 Severity: High Reactions: Hives, Itching Comment: SURGICAL TAPE Jennifer Ray RN Ketorolac Allergy 05-Jul-2021 Severity: Low Reactions: Itching Latex Allergy 05-Jul-2021 Severity: Medium Reactions: Rash Levofloxacin Allergy 20-Apr-2017 Severity: Medium Reactions: Rash, Other (see Comments) Remi Miguel, RMA Lisinopril Allergy 19-Apr-2021 Reactions: Swelling Leah Phan RN Lorazepam Allergy 18-Mar-2018 Severity: High Reactions: Other (see Comments), Unknown Comment: Aggrevates restless leg syndrome Aggrevates restless leg syndrome Medical Adhesive Remover Intolerance 16-Sep-2021 Reactions: Rash Remi Miguel, RMA Meropenem Unknown 16-Feb-2022 Severity: Medium Reactions: Rash Selwyn Delarosa, RMA Metoclopramide Hcl Allergy 17-Oct-2017 Reactions: Unknown Suchyta, Yolande C, COMMUNITY MUSIC THERAPIST Nitrofurantoin Allergy 12-Oct-2021 Severity: Medium Reactions: Itching Jennifer Ray RN Oxycodone Allergy 17-Oct-2017 Reactions: Unknown Suchyta, Yolande C, COMMUNITY MUSIC THERAPIST Pregabalin Allergy 29-Oct-2020 Severity: Low Reactions: Other (see Comments) Reslizumab Allergy 29-Oct-2020 Reactions: Unknown Sulfamethoxazole-Trimethoprim Unknown 27-Feb-2022 Severity: Low Reactions: Itching Selwyn Delarosa, RMA Trazodone Intolerance 03-Nov-2017 Severity: Low Reactions: Other (see Comments) Comment: Shaky, restlessness, itching, throat swelling Velma Potts, RMA No LMP recorded. Patient is postmenopausal. Review of Systems Constitutional: Negative for chills, fatigue and fever. HENT: Negative for congestion, ear pain, facial swelling, hearing loss, mouth sores, sinus pressureand sore throat. Eyes: Negative for pain and redness. Respiratory: Negative for cough, chest tightness, shortness of breath and wheezing. Cardiovascular: Positive for leg swelling. Negative for chest pain and palpitations. Gastrointestinal: Negative for abdominal pain, blood in stool, constipation, diarrhea and nausea. Genitourinary: Positive for dysuria, frequency and urgency. Negative for decreased urine volume, difficulty urinating, dyspareunia, enuresis, flank pain, genital sores, hematuria, menstrual problem, pelvic pain, vaginal bleeding and vaginal discharge. Skin: Negative for rash and wound. Neurological: Positive for headaches. Negative for dizziness, syncope and weakness. Objective Objective: BP 164/88 (BP Location: Left Arm, BP Position: Sitting, BP Cuff Size: Large) Pulse 81 Temp 97.6??F (36.4 ??C) (Temporal) Resp 14 Ht 5' 1 (1.549 m) Wt 291 lb (132 kg) SpO2 100% BMI 54.98 kg/m?? Physical Exam Vitals and nursing note reviewed. Exam conducted with a lumber racker present (onel BERMUDEZ). Constitutional: General: She is not in acute distress. Appearance: Normal appearance. She is well-developed. She is obese. She is not diaphoretic. HENT: Head: Normocephalic and atraumatic. Right Ear: External ear normal. Left Ear: External ear normal. Nose: Nose normal. Mouth/Throat: Mouth: Mucous membranes are moist. Dentition: Does not have dentures. Gingival swelling present. No dental tenderness, dental caries, dental abscesses or gum lesions. Pharynx: Oropharynx is clear. Eyes: Conjunctiva/sclera: Conjunctivae normal. Pupils: Pupils are equal, round, and reactive to light. Neck: Trachea: No tracheal deviation. Cardiovascular: Rate and Rhythm: Normal rate and regular rhythm. Pulses: Normal pulses. Heart sounds: Normal heart sounds. No murmur heard. No friction rub. No gallop. Pulmonary: Effort: Pulmonary effort is normal. No respiratory distress. Breath sounds: Normal breath sounds. No stridor. No wheezing, rhonchi or rales. Chest: Breasts: Right: Absent. Left: Absent. Abdominal: General: Bowel sounds are normal. There is no distension. Palpations: Abdomen is soft. Tenderness: There is no abdominal tenderness. There is no right CVA tenderness, left CVA tenderness, guarding or rebound. Hernia: There is no hernia in the left inguinal area or right inguinal area. Genitourinary: Exam position: Lithotomy position. Labia: Right: No rash, tenderness, lesion or injury. Left: No rash, tenderness, lesion or injury. Urethra: No prolapse, urethral pain, urethral swelling or urethral lesion. Vagina: No signs of injury and foreign body. Erythema, tenderness and bleeding present. No vaginal discharge, lesions or prolapsed vaginal ferrara. Cervix: Friability, erythema and cervical bleeding present. No cervical motion tenderness, discharge, lesion or eversion. Uterus: Normal. Comments: Pap collected, vaginitis swab collected Musculoskeletal: Cervical back: Normal range of motion. Right lower leg: No edema. Left lower leg: No edema. Lymphadenopathy: Upper Body: Right upper body: No supraclavicular, axillary or pectoral adenopathy. Left upper body: No supraclavicular, axillary or pectoral adenopathy. Lower Body: No right inguinal adenopathy. No left inguinal adenopathy. Skin: General: Skin is warm and dry. Neurological: General: No focal deficit present. Mental Status: She is alert and oriented to person, place, and time. Mental status is at baseline. Cranial Nerves: No cranial nerve deficit. Gait: Gait normal. Medical Decision Making: Assessment & Plan Diagnoses and all orders for this visit: Increased urinary frequency - POCT UA AUTOMATED W/O MICRO - CULTURE, URINE; Future - CULTURE, URINE Encounter for gynecological examination with abnormal finding - PATHOLOGY CYTOLOGY BARREL MAKER - BREAST & PELVIC EXAM - PAP COLLECTION - HUMAN PAPILLOMA VIRUS (HPV) Vaginal irritation - VAGINITIS SCREEN, MOLECULAR; Future - VAGINITIS SCREEN, MOLECULAR Encounter for screening for human papillomavirus (HPV) - HUMAN PAPILLOMA VIRUS (HPV) Essential hypertension Other orders - oxybutynin (DITROPAN-XL) 10 MG TABLET SR 24 HR; Take 10 mg by mouth in the morning and at bedtime. - hydrOXYzine (ATARAX) 25 MG Tablet; Take 25 mg by mouth. PLAN: pap smear counseled on adequate intake of calcium and vitamin D additional lab tests per orders return annually or prn Urinalysis send for culture. Also send vaginitis due to irritation. Patient's blood pressure is elevated although when I rechecked it it was 132/80. Patient's leg swelling improved with stopping amlodipine so will discontinue. Patient has frequent UTI's. Discussed with collaborating physician, willstart the patient on Metoprolol and have her notify the office of her BP readings. * Pili Elkins APRN, CNP - 07/05/2022 1:15 PM CDT Negative vaginitis. Still waiting on urine culture. * Pili Elkins APRN, CNP - 07/05/2022 1:15 PM CDT Please call patient. She has another UTI, the susceptibility should be back tomorrow and due to herallergies and frequent UTi I would like to wait for this. Thanks! documented in this encounter Plan of Treatment Upcoming Encounters Date Type Department Care Team (Late st Contact Info) Description 05/17/2024 2:45 PM FASHION PATTERNMAKER Office Visit [facility] - Endocrinology - [place] [address] [place] [id number] Annel Rod MD [address] [phone] documented as of this encounter Procedures Procedure Name Priority Date/Time Associated Diagnosis Comments POCT UA AUTOMATED W/O MICRO Routine 07/05/2022 2:25 PM CDT Increased urinary frequency VAGINITIS SCREEN, MOLECULAR Routine 07/05/2022 2:24 PM CDT Vaginal irritation PATHOLOGY CYTOLOGY BARREL MAKER Routine 07/05/2022 2:24 PM CDT Encounter for gynecological examination with abnormal finding HUMAN PAPILLOMA VIRUS (HPV) Routine 07/05/2022 2:24 PM CDT Encounter for gynecological examination with abnormal finding Encounter for screening for human papillomavirus (HPV) CULTURE, URINE Routine 07/05/2022 2:24 PM CDT Increased urinary frequency documented in this encounter Results * (ABNORMAL) POCT UA AUTOMATED W/O MICRO (07/05/2022 2:25 PM CDT) POC UA SPECIFIC GRAVITY 1.020 URINE PH 6.0 5.0 - 9.0 POC URINE LEUKOCYTES 500 /uL(A) Negative Emerson/uL POC URINE NITRITE Negative Negative POC URINE PROTEIN Negative Negative mg/dL POC URINE GLUCOSE Norm Negative, Norm mg/dL POC URINE KETONE Negative Negative mg/dL POC URINE UROBILINOGEN Norm Norm, 0.2 E.U./dL (mg/dL), 1 E.U./dL (mg/dL) POC URINE BILIRUBIN Negative Negative mg/dL POC URINE BLOOD INSTRUMENT 50 Minor/uL(A) Negative Minor/uL POC URINE COLOR Dark Yellow POC URINE CLARITY Ex. Turbid Urine 07/05/2022 2:25 PM CDT us Pili Elkins INDUSTRIAL GREEN SYSTEMS DESIGNER, [employer]PER[employer] POINT OF CARE TESTIN G (MANUAL) Final Result * HUMAN PAPILLOMA VIRUS (HPV) (07/05/2022 2:24 PM CDT) HPV OTHER HIGH RISK TYPES, PCR NEGATIVE NEGATIVE 07/06/2022 2:37 PM CDT [facility] Comment: The following Other High [...] 16 NEGATIVE NEGATIVE 07/06/2022 2:37 PM CDT [facility] Comment: A negative high-risk HPV [...] 18 NEGATIVE NEGATIVE 07/06/2022 2:37 PM CDT [facility] Comment: A negative high-risk HPV [...] OR DIAGNOSTIC SCREENING 07/06/2022 2:37 PM CDT [facility] Other Non-Phlebotomy Collection / Unknown 07/05/2022 2:24 PM CDT 07/05/2022 2:24 PM CDT Narrative [facility] - 07/06/2022 2:37 PM CDT Performed by Real-Time Polymerase Chain Reaction (PCR) on the Ronnie Vinay 4800. This assay has been validated for use with post-aliquot samples from the [employer] T5000 processor. Pili Elkins APRN, CNP LAB SEND OUTS Deann bowman Result [facility] [address] [place] [address], [facility] [address] [place] [address] * PATHOLOGY CYTOLOGY BARREL MAKER (07/05/2022 2:24 PM CDT) SPECIMEN ADEQUACY A scant cellular component is noted. Scant cellularity is likely due to presence of lubricant. 07/08/2022 8:38 AM CDT [facility] DESCRIPTIVE DIAGNOSIS NEGATIVE FOR INTRAEPITHELIAL LESIONS OR MALIGNANCY. 07/08/2022 8:38 AM CDT [facility] R FINDINGS Atrophic hormonal pattern. 07/08/2022 8:38 AM CDT [facility] Automated Examination This sample was not evaluated by the automated imaging and review system ([employer] System, [employer], [place], [place] due to technical and / or biologic factor(s). The case was screened, reviewed, and finalized by a marzipan molder and / or pathologist. 07/08/2022 8:38 AM CDT [facility] Disclaimer The PAP smear is [...] unless clinically indicated. 07/08/2022 8:38 AM CDT [facility] Other (Cervix/Endocerv ix) Non-Phlebotomy Collection / Unknown 07/05/2022 2:24 PM CDT 07/05/2022 2:24 PM CDT Pili Elkins APRN, CNP PATHOLOGY/CYTOLOGY O RDERABLES Final Result [facility] [address] [place] [address], [place] * VAGINITIS SCREEN, MOLECULAR (07/05/2022 2:24 PM CDT) TRICHOMONAS Negative Negative 07/05/2022 10:54 PM CDT [facility] BACTERIAL VAGINOSIS Negative Negative 07/05/2022 10:54 PM CDT [facility] PABLITO Negative Negative 07/05/2022 10:54 PM CDT [facility] Other VAGINAL STRUCTURE / Unknown Non-Phlebotomy Collection / Unknown 07/05/2022 2:24 PM CDT 07/05/2022 2:24 PM CDT Pili Elkins APRN, CNP LAB SEND OUT GENETIC Final Result [facility] [address] [place] [address], [place] * CULTURE, URINE (07/05/2022 2:24 PM CDT) CULTURE RESULTS ESCHERICHIA COLI 07/07/2022 3:34 PM CDT [facility] CULTURE RESULTS ALSO MIXED GROWTH OF DISTAL URETHRA CONTAMINANTS. 07/07/2022 3:34 PM CDT [facility] Culture URINE SPECIMEN COLLECTION, CLEAN CATCH / Unknown Non-Phlebotomy Collection / Unknown 07/05/2022 2:24 PM CDT 07/05/2022 2:24 PM CDT Narrative Organism Antibiotic Method Susceptibility Escherichia coli Ampicillin [facility] II >=32 mcg/ml: Resistant Escherichia coli Ampicillin/sulbactam [facility] II 8 mcg/ml: Susceptible Escherichia coli Cefazolin [facility] <=4 mcg/ml: Susceptible Escherichia coli Cefepime [facility] <=1 mcg/ml: Susceptible Escherichia coli Ceftriaxone [facility] <=1 mcg/ml: Susceptible Escherichia coli Gentamicin [facility] <=1 mcg/ml: Susceptible Escherichia coli Levofloxacin [facility] >=8 mcg/ml: Resistant Escherichia coli Meropenem [facility] <=0.25 mcg/ml: Susceptible Escherichia coli Nitrofurantoin [facility] <=16 mcg/ml: Susceptible Escherichia coli Piperacillin/Tazobactam [facility] II <=4 mcg/ml: Susceptible Escherichia coli Tobramycin [facility] <=1 mcg/ml: Susceptible Escherichia coli Trimeth/Sulfamethoxazole [facility] I I >=320 mcg/ml: Resistant us Pili Elkins INDUSTRIAL GREEN SYSTEMS DESIGNER, [employer] OPERATIONS MICROBIOLOGY - GENER AL ORDERABLES Final Result [facility] [address] [place] [address], [place] documented in this encounter Visit Diagnoses Diagnosis Increased urinary frequency- Primary Urinary frequency Encounter for gynecological examination with abnormal finding Routine gynecological examination Vaginal irritation Unspecified noninflammatory disorder of vagina Encounter for screening for human papillomavirus (HPV) Special screening examination for human papillomavirus (HPV) Essential hypertension Unspecified essential hypertension documented in this encounter Additional Health Concerns Assessment Noted Time PHQ-9 Depression Total Score: 0 07/21/19 21 3:00 PM CDT documented as of this encounter Care Teams Crusher Loader Operator Relationship Specialty Start Date End Date Justen aGle MD #2 [facility] [address] [place] [address] PCP - General Family Medicine 10/17/17 David Roberts, INDUSTRIAL GREEN SYSTEMS DESIGNER, [employer] [address] [place] [address] Nurse Practitioner Advanced Practice Nurse 01/31/22 Annel Rod MD [address]2 [facility] [address] [place] [phone] Consulting Physician Endocrinology 07/01/22 documented as of this encounter
--- OUTSIDE RECORDS SUMMARY | 2024-04-26 02:56 | XMS_ITS | Encounter Summary ---
Author Organization [facility] Address [address] [place] [address] Phone Care Team Providers Care Director Of Diversity And Inclusion Name Role Phone Justen Gale MD Primary Care Provider [phone] David Roberts APRN, LOADING UNIT OPERATOR POWDER CHARGING Unavailable [phone] Annel Rod MD Unavailable Reason for Visit * Reason Onset Date Comments Medication Reaction 10/19/2022 Encounter Details Date Type Department Care Team (Late st Contact Info) Description 10/19/2022 Telephone [facility] [address] [place] [address] Justen Gale MD #[address] [address] Medication Reaction Social History Tobacco Use Types [...] encounter Miscellaneous Notes * Telephone Encounter - Darcy Huang - 10/19/2022 1:07 PM CDT Symptom: Medication Reaction Outcome: Transfer to boring mill operator queue Reason: Caller denied all higher acuity questions The caller accepted this outcome Caller denied: * Trouble breathing * Trouble swallowing documented in this encounter Plan of Treatment Upcoming Encounters Date Type Department Care Team (Late st Contact Info) Description 05/17/2024 2:45 PM PLYWOOD PATCHER Office Visit [facility] - [facility]ocr[facility] #2 [place] [address] Annel Rod MD #[address] [address] documented as of this encounter Visit Diagnoses Not on filedocumented in this encounter Additional Health Concerns Assessment Noted Time PHQ-9 Depression Total Score: 0 09/17/19 23 11:00 AM CDT documented as of this encounter Care Teams Director Of Diversity And Inclusion Relationship Specialty Start Date End Date Justen Gale MD #[address] [address] PCP - General Family Medicine 10/17/17 David Roberts, PAVING BLOCK CUTTER, LOADING UNIT OPERATOR POWDER CHARGING #2 [place] [address] Nurse Practitioner Advanced Practice Nurse 01/31/22 Annel Rod MD #[address] [address] Consulting Physician Endocrinology 07/01/22 documented as of this encounter
--- OUTSIDE RECORDS SUMMARY | 2024-04-26 02:56 | XMS_ITS | Encounter Summary ---
Author Organization [facility] Address [address] [place] [address] Phone Care Team Providers Care Rail Car Loader Name Role Phone Justen Gale MD Primary Care Provider [phone] David Roberts APRN, ORTHODONTIC LAB TECHNICIAN Unavailable [phone] Reason for Visit * Reason Comments Medication Refill Encounter Details Date Type Department Care Team (Late st Contact Info) Description 05/19/2022 Refill [facility] - Endocrinology - [place] #2 [place] [address] Annel Rod MD #[address] [address] Medication Refill Social History Tobacco [...] Coronavirus/COVID-19? No / Unsure 05/02/2022 3:22 PM CHILDREN'S AUTHOR documented as of this encounter Miscellaneous Notes * Telephone Encounter - Annel Rod MD - 05/25/2022 9:22 PM CST Rx sent DREN'S AUTHOR * Telephone Encounter - Jennifer Wang, RN - 05/25/2022 3:54 PM CHILDREN'S AUTHOR Requested Prescriptions Pending Prescriptions Disp Refills ??? HumaLOG KwikPen 100 UNIT/ML Solution Pen-injector [Pharmacy Med Name: HUMALOG 100 U/ML KWIK PENINJ 3ML] 30 mL 1 Sig: ADMINISTER 22 UNITS BEFORE EACH MEAL, ISF OF 1:15 IF>150MG/DL, MAX DAILY DOSE OF 100 UNITS Next appt: Message sent to schedule follow up. DREN'S AUTHOR documented in this encounter Plan of Treatment Upcoming Encounters Date Type Department Care Team (Late st Contact Info) Description 05/17/2024 2:45 PM CHILDREN'S AUTHOR Office Visit [facility] - [facility] #[address] [place] [address] Annel Rod MD #2 [facility] [address] [place] [address] documented as of this encounter Visit Diagnoses Not on filedocumented in this encounter Additional Health Concerns Assessment Noted Time PHQ-9 Depression Total Score: 0 07/21/19 21 3:00 PM CDT documented as of this encounter Care Teams Rail Car Loader Relationship Specialty Start Date End Date Justen Gale MD #2 [facility] [address] [place] [address] PCP - General Family Medicine 10/17/17 David Roberts, HEALTH AND PHYSICAL EDUCATION PROFESSOR, ORTHODONTIC LAB TECHNICIAN [address] [place] [address] Nurse Practitioner Advanced Practice Nurse 01/31/22 documented as of this encounter
--- OUTSIDE RECORDS SUMMARY | 2024-04-26 02:56 | XMS_ITS | Encounter Summary ---
Author Organization [facility] Address [address] [place] [address] Phone Care Team Providers Care Stars Specialist Name Role Phone Justen Gale MD Primary Care Provider [phone] David Roberts APRN, HAND CLERICAL VERIFIER Unavailable [phone] Annel Rod MD Unavailable Reason for Visit * Reason Onset Date Comments Results 07/07/2022 Medication Management 07/07/2022 Encounter Details Date Type Department Care Team (Late st Contact Info) Description 07/07/2022 Telephone [facility] - Family [facility] #2 [place] [address] Kodak Elkins APRN, HAND CLERICAL VERIFIER #[address] [address] Results; Medication Management Social History Tobacco Use Types [...] encounter Miscellaneous Notes * Telephone Encounter - Kelsy Muñoz RN - 07/08/2022 4:56 PM CDT Patient (on prd) calling regarding medication, he states pharmacy does not have prescription. This nurse called pharmacy and provided verbal order for medication. * Addendum Note - Kodak Elkins APRN, CNP - 07/08/2022 10:54 AM CDT Addended by: KODAK ELKINS on: 07/08/2022 10:54 AM Modules accepted: Orders * Telephone Encounter - Kodak Elkins APRN, CNP - 07/08/2022 10:54 AM CDT Sent to pharmacy * Telephone Encounter - Stacy Huang RN - 07/08/2022 10:26 AM CDT Called and spoke with patient, she stated that she would try that. Please sent to [facility] in [place] * Telephone Encounter - Kodak Elkins APRN, CNP - 07/08/2022 10:17 AM CDT If she goes through [facility] there is a GoodRX coupon that will drop this to $30. The one dose should be enough and we can retest her next week. * Telephone Encounter - Alejandra Rosales RN - 07/08/2022 10:08 AM CDT Patient calling back, see message below, states the Monurol isn't covered by her insurance, states normally it takes 3 days of this to get over her UTI, either way the provider would have to authorize it to be covered and she don't think she should wait for this, does provider think she should go to the ED so can get IV antibiotics? Please advise * Telephone Encounter - Stacy Huang RN - 07/08/2022 9:56 AM CDT Called ans spoke with patient, she stated that a lot of times she needs to go to the hospital and get her antibiotics. She stated that she will call the pharmacy and see what they say and if she needs to go to the ER she will. * Telephone Encounter - Stacy Huang RN - 07/07/2022 4:39 PM CDT LVM for patient to call back. * Telephone Encounter - Kodak Elkins APRN, CNP - 07/07/2022 4:17 PM CDT Please call patient, culture results are back. I called in an antibiotic for her to start. documented in this encounter Plan of Treatment Upcoming Encounters Date Type Department Care Team (Late st Contact Info) Description 05/17/2024 2:45 PM DIRECTOR NURSES' REGISTRY Office Visit [facility] - Endocrinology - [place] #[address] [place] [address] Annel Rod MD #2 [facility] [address] [place] [address] documented as of this encounter Visit Diagnoses Diagnosis Acute cystitis without hematuria- Primary Acute cystitis documented in this encounter Additional Health Concerns Assessment Noted Time PHQ-9 Depression Total Score: 0 07/21/19 21 3:00 PM CDT documented as of this encounter Care Teams Stars Specialist Relationship Specialty Start Date End Date Justen Gale MD #[address] [address] PCP - General Family Medicine 10/17/17 David Roberts, MOTEL FRONT DESK ATTENDANT, HAND CLERICAL VERIFIER #2 [place] [address] Nurse Practitioner Advanced Practice Nurse 01/31/22 Annel Rod MD #[address] [address] Consulting Physician Endocrinology 07/01/22 documented as of this encounter
--- OUTSIDE RECORDS SUMMARY | 2024-04-26 02:56 | XMS_ITS | Encounter Summary ---
Author Organization [facility] Address [address] [place] [address] Phone Care Team Providers Care Fugitive Investigator Name Role Phone Justen Gale MD Primary Care Provider [phone] David Roberts APRN, SEAT BUILDER Unavailable [phone] Reason for Visit * Reason Comments Medication Refill Encounter Details Date Type Department Care Team (Late st Contact Info) Description 06/15/2022 Refill [facility] - Family Medicine [facility] #2 [place] [phone] Justen Gale MD #[address] [address] Medication Refill Social History Tobacco Use Types [...] encounter Miscellaneous Notes * Telephone Encounter - Lety Man RN - 06/16/2022 9:58 AM DOWN FILLER Medication(s) refilled and signed per [facility] Chronic Medication Refill Standing Order for Pediatricand Adult Patients. Requested Prescriptions Pending Prescriptions Disp Refills ??? B-D ULTRAFINE III SHORT PEN 31G X 8 MM Misc [Pharmacy Med Name: B-D PEN NDL SHRT [id number](09/06) KIT] Sig: USE 6 TIMES DAILY DIRECTED Diabetic Supplies Protocol Passed - 06/15/2022 12:56 PM Passed - Visit with relevant provider in past 6 months Recent Visits Date Type Provider Dept 05/02/22 Office Visit Justen Gale MD [facility] 03/03/22 Office Visit Pili Elkins APRN, NETTA [facility] 01/03/22 Office Visit Dannielle Berg PAC [facility] Showing recent visits within past 182 days and meeting all other requirements Future Appointments Date Type Provider Dept 07/05/22 Appointment Pili Elkins APRN, NETTA [facility] Showing future appointments within next 90 days and meeting all other requirements FILLER documented in this encounter Plan of Treatment Upcoming Encounters Date Type Department Care Team (Late st Contact Info) Description 05/17/2024 2:45 PM DOWN FILLER Office Visit [facility] - Endocrinology - [place] [address] [place] [address] Annel Rod MD #[address] [place] [address] documented as of this encounter Visit Diagnoses Not on filedocumented in this encounter Additional Health Concerns Assessment Noted Time PHQ-9 Depression Total Score: 0 07/21/19 21 3:00 PM CDT documented as of this encounter Care Teams Fugitive Investigator Relationship Specialty Start Date End Date Justen Gale MD [address] [address] PCP - General Family Medicine 10/17/17 David Roberts APRN, NETTA #2 [facility] [address] Nurse Practitioner Advanced Practice Nurse 01/31/22 documented as of this encounter
--- OUTSIDE RECORDS SUMMARY | 2024-04-26 02:56 | XMS_ITS | Encounter Summary ---
Author Organization [employer] Care Team Providers Care Outboard System Operator Name Role Phone Justen Gale MD Primary Care Provider [phone] David Roberts APRN, ENGLISH ADJUNCT FACULTY Unavailable [phone] Annel Rod MD Unavailable Encounter Details Date Type Department Care Team (Latest Contact Info) Description 07/05/2022 Travel Social History Tobacco Use Types Packs/Day [...] ( Contact Info) Description 05/17/2024 2:45 PM TERRAPIN FISHER Office Visit [facility] - Endocrinology - [place] #[address] [place] [address] Annel Rod MD [address] [address] documented as of this encounter Visit Diagnoses Not on filedocumented in this encounter Additional Health Concerns Assessment Noted Time PHQ-9 Depression Total Score: 0 07/21/19 21 3:00 PM CDT documented as of this encounter Care Teams Outboard System Operator Relationship Specialty Start Date End Date Justen Gale MD [address] [address] PCP - General Family Medicine 10/17/17 David Roberts, MANAGER COSMETICS, ENGLISH ADJUNCT FACULTY #[address] [place] [address] Nurse Practitioner Advanced Practice Nurse 01/31/22 Annel Rod MD #[address] [address] Consulting Physician Endocrinology 07/01/22 documented as of this encounter
--- OUTSIDE RECORDS SUMMARY | 2024-04-26 02:56 | XMS_ITS | Encounter Summary ---
Author Organization [facility] [employer] Care Team Providers Care Spray Machine Operator Name Role Phone Justen Gale MD Primary Care Provider [phone] David Roberts APRN, SEED BUYER Unavailable [phone] Encounter Details Date Type Department Care Team (Latest Contact Info) Description 05/02/2022 Travel Social History Tobacco Use Types Packs/Day [...] Coronavirus/COVID-19? No / Unsure 05/02/2022 3:22 PM BEADING SAWYER documented as of this encounter Plan of Treatment Upcoming Encounters Date Type Department Care Team (Late st Contact Info) Description 05/17/2024 2:45 PM BEADING SAWYER Office Visit [facility] - Endocrinology [facility] #[address] [place] [address] Annel Rod MD #2 [address] [facility] [address] [place] [address] documented as of this encounter Visit Diagnoses Not on filedocumented in this encounter Additional Health Concerns Assessment Noted Time PHQ-9 Depression Total Score: 0 07/21/19 21 3:00 PM CDT documented as of this encounter Care Teams Spray Machine Operator Relationship Specialty Start Date End Date Justen Gale MD #2 [place] [facility] [address] [place] [address] PCP - General Family Medicine 10/17/17 David Roberts APRN, SEED BUYER #[address] [place] [address] Nurse Practitioner Advanced Practice Nurse 01/31/22 documented as of this encounter
--- OUTSIDE RECORDS SUMMARY | 2024-04-26 02:56 | XMS_ITS | Encounter Summary ---
Author Organization [facility] Address [address] [place] [address] Phone Care Team Providers Care Fashion Consultant Name Role Phone Justen Gale MD Primary Care Provider [phone] David Roberts APRN, MARKETING STRATEGIST Unavailable [phone] Annel Rod MD Unavailable Reason for Visit * Reason Onset Date Comments Itching 09/14/2022 Encounter Details Date Type Department Care Team (Late st Contact Info) Description 09/14/2022 Nurse Triage [facility] Call Center [address] [place] [address] Justen Gale MD #[address] [address] Itching Social History Tobacco Use Types Packs/Day Years Used Date Smoking Tobacco: Never Smokeless Tobacco: Never Alcohol Use Standard Drinks/Week Comments No 0 (1 standard drink = 0.6 oz pur e alcohol) PHQ-2 Answer Date Recorded Total Score - Questions 1-9 0 0 12/2021 Education Answer Date Recorded What is [...] Miscellaneous Notes * Telephone Encounter - Sonali Zelaya RN - 09/14/2022 5:29 PM CDT SITUATION: Patient is itching all over and she is red where she is scratching. BACKGROUND: Patient has a history of allergies to medications but she is not on new medications. Patient is a diabetic. Her diabetic doctor told her that it is not the diabetes causing the itching. He said it's dermatitis. ASSESSMENT: Symptom Description / Location: patient reports that it started 4 days ago. It started off as beingmild but it is worsening. Patient planted a garden and has been in the garden for two days within the last 4 days but patient has been out of the garden yesterday and today. Patient doesn't think shehas been exposed to poison sara, patient has pets in the home but she treats them for fleas. This has never happened before. The itching is on the feet, legs, arms, stomach, buttocks, back, arms. The itching is in different places at different times. Patient has had scabies before 40 years ago and this rash is not like that. Patient's fingers do not itch and she has no tracks between her fingers. Patient denies travel. Patient is not bleeding now but she has scratch sanchez. Patient has not been swimming, she is not allergic to pollen or animals. Patient is using soap that she has never had a reaction to before. Patient didn't even shower today. Pain (0-10): denies pain, itching is 8/10 Temp: denies Treatment / Response: p took 2 benadryl an hour and a half ago. It stopped itching in one area but now she is itching in another area. She can't sleep at night. Patient tried lotion which made it worse. RECOMMENDATION: patient should be seen within 24 hours. Patient will go to prompt care for an evaluation. See care advice and disposition for Guideline First positive answer recorded, all responses to prior questions were negative. If symptoms increase, change or if new symptoms develop, call your HCP or call back. Recommendations were based on caller information and is not a diagnosis. Verified and reviewed all triage information with caller. Reason for Disposition ??? [1] MODERATE-SEVERE widespread itching (i.e., interferes with sleep, normal activities or school) AND [2] not improved after 24 hours of itching Care Advice Protocols used: ITCHING - [id number] documented in this encounter Plan of Treatment Upcoming Encounters Date Type Department Care Team (Late st Contact Info) Description 05/17/2024 2:45 PM BLANCHARD GRINDER OPERATOR Office Visit [facility] - Endocrinology [facility] #2 [place] [address] Annel Rod MD #[address] [address] documented as of this encounter Visit Diagnoses Not on filedocumented in this encounter Additional Health Concerns Assessment Noted Time PHQ-9 Depression Total Score: 0 07/21/19 21 3:00 PM CDT documented as of this encounter Care Teams Fashion Consultant Relationship Specialty Start Date End Date Justen Gale MD #[address] [address] PCP - General Family Medicine 10/17/17 David Roberts APRN, MARKETING STRATEGIST #2 [place] [address] Nurse Practitioner Advanced Practice Nurse 01/31/22 Annel Rod MD #[address] [address] Consulting Physician Endocrinology 07/01/22 documented as of this encounter
--- OUTSIDE RECORDS SUMMARY | 2024-04-26 02:56 | XMS_ITS | Encounter Summary ---
Author Organization [facility] Address [address] [place] [address] Phone Care Team Providers Care Apns Name Role Phone Justen Gale MD Primary Care Provider [phone] David Roberts APRN, MILK PICKUP DRIVER Unavailable [phone] Annel Rod MD Unavailable Reason for Visit * Reason Onset Date Comments Results 09/16/2022 Encounter Details Date Type Department Care Team (Late st Contact Info) Description 09/16/2022 Telephone [facility] Call Center [address] [place] [address] Justen Gale MD #[address] [address] Results Social History Tobacco Use Types Packs/Day [...] suspected to have Coronavirus/COVID-19? No / Unsure 09/16/2022 10:59 AM CDT documented as of this encounter Functional Status * Question Answer Date of Assessment Author Little interest or pleasure in doing things Not at all 09/16/2022 11:00 AM CDT Jane Hawkins th Feeling down, depressed, or hopeless Not at all 09/16/2022 11:00 AM CDT Jane Hawkins th * Over the past 2 weeks, how often have you been bothered by any of the following problems? Question Answer Date of Assessment Author Patient Health Questionnaire -2 Score 0 09/16/2022 11:00 AM CDT Jane Hawkins th documented as of this encounter Miscellaneous Notes * Telephone Encounter - Stacy Huang RN - 09/16/2022 3:25 PM CDT Sent message to patient through my chart * Telephone Encounter - Pili Elkins APRN, CNP - 09/16/2022 2:59 PM CDT Everything looks ok. I would avoid the treviño for a week and take the hydroxyzine and see if her itching goes away. * Telephone Encounter - Kristine Jacobo - 09/16/2022 2:36 PM CDT SITUATION: Results BACKGROUND: ASSESSMENT: Patient is asking about results since she still has the symptoms - advised patient that a note willbe sent to office and she will have call back - verbalizes understanding She can check mychart messages documented in this encounter Plan of Treatment Upcoming Encounters Date Type Department Care Team (Late st Contact Info) Description 05/17/2024 2:45 PM HEALTH INFORMATION TECHNOLOGIST Office Visit [facility] - [facility] #2 [place] [address] Annel Rod MD [address] [address] documented as of this encounter Visit Diagnoses Not on filedocumented in this encounter Additional Health Concerns Assessment Noted Time PHQ-9 Depression Total Score: 0 09/17/19 23 11:00 AM CDT documented as of this encounter Care Teams Apns Relationship Specialty Start Date End Date Justen Gale MD #[address] [address] PCP - General Family Medicine 10/17/17 David Roberts, SKEINS YARN EXAMINER, MILK PICKUP DRIVER #[address] [place] [address] Nurse Practitioner Advanced Practice Nurse 01/31/22 Annel Rod MD #[address] [address] Consulting Physician Endocrinology 07/01/22 documented as of this encounter
--- OUTSIDE RECORDS SUMMARY | 2024-04-26 02:56 | XMS_ITS | Encounter Summary ---
Author Organization [facility] Address [address] [place] [address] Phone Care Team Providers Care Paper Control Clerk Name Role Phone Justen Gale MD Primary Care Provider [phone] David Roberts APRN, TROUBLE CLERK Unavailable [phone] Annel Rod MD Unavailable Reason for Visit * Reason Onset Date Comments Appointment 01/16/2023 Altered Mental Status 01/16/2023 Encounter Details Date Type Department Care Team (Late st Contact Info) Description 01/16/2023 Nurse Triage [facility] - [facility] [place] #[address] [place] [address] Justen Gale MD [address] [address] Appointment; Altered Mental Status Social History Tobacco Use Types Packs/Day Years [...] Miscellaneous Notes * Telephone Encounter - Christin Holland RN - 01/16/2023 2:24 PM CDT Spoke with Dr. Gale and explained that patient is already scheduled for a follow up visit with himtomorrow 01/17/23 2:20 PM and did he want to see her sooner or send her back to ED? Dr. Gale statedthat he will just see patient tomorrow 01/17/23 at follow up visit. LVM for patient to advise. * Telephone Encounter - Justen Gale MD - 01/16/2023 2:00 PM CDT Needs office visit * Telephone Encounter - Christin Holland RN - 01/16/2023 1:54 PM CDT Patient fell and had head injury about 4 weeks ago. Continues having post concussion syndrome symptoms. Complains of headache at 6/10, no vomiting, irritability, nauseated. Patient on Xarelto. Has post ED follow up appointment 01/17/23. Patient think she might need to be seen soon but hesitates to go back to ED because she doesn't believe they will do anything for it, she did not get repeat CT on her ED visit on 01/13/23. Please advise. * Telephone Encounter - Kelli Coreas RN - 01/16/2023 1:12 PM CDT S: Patient is calling back for advice B: Patient relays she had a fall and head injury about 4 weeks ago and has been having some post concussion syndrome symptoms since then but her symptoms are worse this past week She was seen at ED again a couple days ago and they gave her IV fluids but did not do a repeat CT of her head and she is on Blood thinners She also has pain stimulator in her back and is not able to have MRI's done due to this A: She did call and speak to a nurse earlier and scheduled an ED follow up for tomorrow but thinks sheneeds to be seen today she just feels like she is going to crawl out of her skin She is very irritable and can't seem to get comfortable doing anything like she is going to crawl the ferrara She has anxiety, headache and is unable to control her emotions and is very short fused with everyone and irritable,overwhelmed and feels confused about things at times or can't think straight about stuff. She feels like her headache is worse than it was She rates headache today is a level 6 She is not vomiting but is not able to eat much and feel nauseated every time she eats or drinks Reason for Disposition ??? Diagnosed with a concussion within last 14 days ??? Concussion symptoms are worsening Protocols used: HEAD INJURY-A-OH, CONCUSSION (MTBI) LESS THAN 14 DAYS AGO FOLLOW-UP CALL-A-OH RN advised to go to ED per guideline recommendations Care advice reviewed Instructed to call back with any follow up needs and call 911 for any worsening or emergent symptoms Allergies and pharmacy reviewed Patient verbalized understanding but would prefer to ask PCP for recommendations as she is not surewhat ED will do for her now as they didn't give her any medication for her headache or anxiety lasttime and also didn't provide a new CT scan of her head although she is on blood thinners Please advise and update patient accordingly * Telephone Encounter - Jennifer Sykes RN - 01/16/2023 11:04 AM CDT S: Patient needs ED follow-up appointment. B: Patient was seen in ED on Monday01/13/23 and diagnosed with post concussion syndrome. Patient suffered a head injury one month ago. A: Patient states her symptoms come and go. Patient is continuing to have issues with headache, vomiting and some memory issues. R: All Patient Appointments Provider Department Dept Phone 01/17/2023 2:20 PM Olamide, Catrina [facility] Family [facility] [phone] No assistive services needed. * Telephone Encounter - Jerrica Diggs - 01/16/2023 10:55 AM CDT Symptoms: Vomiting, Headache, Altered Mental Status, Head Injury Outcome: Warm transfer to an emergent RN NOW! Reason: Caused by head injury The caller accepted this outcome documented in this encounter Plan of Treatment Upcoming Encounters Date Type Department Care Team (Late st Contact Info) Description 05/17/2024 2:45 PM PACKER OPERATOR AUTOMATIC Office Visit [facility] Endocrinology [facility] #2 [place] [address] Annel Rod MD [address] [address] documented as of this encounter Visit Diagnoses Not on filedocumented in this encounter Additional Health Concerns Assessment Noted Time PHQ-9 Depression Total Score: 0 09/17/19 23 11:00 AM CDT documented as of this encounter Care Teams Paper Control Clerk Relationship Specialty Start Date End Date Justen Gale MD #2 [facility] [address] [place] [address] PCP - General Family Medicine 10/17/17 David Roberts APRN, TROUBLE CLERK #2 [place] [address] Nurse Practitioner Advanced Practice Nurse 01/31/22 Annle Rod MD [address] [address] Consulting Physician Endocrinology 07/01/22 documented as of this encounter
--- OUTSIDE RECORDS SUMMARY | 2024-04-26 02:56 | XMS_ITS | Encounter Summary ---
Author Organization [facility] Address [address] [place] [address] Phone Care Team Providers Care Instructional Support Services Director Name Role Phone Justen Gale MD Primary Care Provider [phone] David Roberts APRN, BOOKER Unavailable [phone] Reason for Visit * Reason Onset Date Comments Dizziness 05/14/2022 Headache 05/14/2022 Encounter Details Date Type Department Care Team (Late st Contact Info) Description 05/14/2022 Nurse Triage [facility] [address] [place] [address] Justen Gale MD #[address] [address] Dizziness; Headache Social History Tobacco Use Types Packs/Day Years [...] Coronavirus/COVID-19? No / Unsure 05/02/2022 3:22 PM POST ADOPTION COORDINATOR documented as of this encounter Miscellaneous Notes * Telephone Encounter - Lizzy Bishop RN - 05/14/2022 6:04 AM CST SITUATION (caller perception/concerns): Dizziness, vertigo BACKGROUND (events leading up to call): Symptoms ASSESSMENT: Patient calling in with vertigo the last 4-5 days. Feels like the room is spinning really fast. Lightheadedness intermittently. States she had a headache that started this morning. States headache is currently just slight butearlier was like a migraine. Starts when she gets up or turns in bed. Weakness in left arm, states it feels heavy Denies numbness or tingling Has episode of dizziness about 4 months ago that only lasted a couple of days. Intermittent nausea, no vomiting Right before the dizziness started seeing wiggly lines. Denies fever States she almost fell this morning trying to get to go to the bathroom, state she fell backward but caught herself. Most recent blood sugar 148 at end of last night which is with in her normal range. Stopped myrbetriq due to increased blood pressure. History of blood clots and DVT Denies injuries Denies face numbness RECOMMENDATION: Recommendation is to go to the ED now for evaluation, another adult to drive you. Patient will be going to [facility] in [facility] If symptoms increase, change, or if new symptoms develop, patient to report to emergency room. Verified and reviewed all information with caller. Caller verbalized understanding of information given and denies further questions. Teach-back method utilized. Reason for Disposition ??? SEVERE dizziness (vertigo) (e.g., unable to walk without assistance) Protocols used: DIZZINESS - [id number] ADOPTION COORDINATOR documented in this encounter Plan of Treatment Upcoming Encounters Date Type Department Care Team (Late st Contact Info) Description 05/17/2024 2:45 PM POST ADOPTION COORDINATOR Office Visit [facility] - Endocrinology - [place] #2 [place] [address] Annel Rod MD #2 [facility] [address] [place] [address] documented as of this encounter Visit Diagnoses Not on filedocumented in this encounter Additional Health Concerns Assessment Noted Time PHQ-9 Depression Total Score: 0 07/21/19 21 3:00 PM CDT documented as of this encounter Care Teams Instructional Support Services Director Relationship Specialty Start Date End Date Justen Gale MD #2 [facility] [address] [place] [address] PCP - General Family Medicine 10/17/17 David Roberts, PRODUCT TESTER FIBERGLASS, BOOKER #2 [place] [address] Nurse Practitioner Advanced Practice Nurse 01/31/22 documented as of this encounter
--- OUTSIDE RECORDS SUMMARY | 2024-04-26 02:56 | XMS_ITS | Encounter Summary ---
Author Organization [facility] Address [address] [place] [address] Phone Care Team Providers Care Spring Former Name Role Phone Justen Gale MD Primary Care Provider [phone] David Roberts APRN, FOREST RANGER TECHNICIAN Unavailable [phone] Annel Rod MD Unavailable Reason for Visit * Reason Comments Medication Refill Encounter Details Date Type Department Care Team (Late st Contact Info) Description 09/22/2022 Refill [facility] - Family Medicine [facility] #2 [place] [address] Justen Gale MD #[address] [address] Medication Refill Social History Tobacco Use Types [...] AM CDT documented as of this encounter Miscellaneous Notes * Telephone Encounter - Marlys Anderson RN - 09/22/2022 3:30 PM CDT Medication(s) refilled and signed per [facility] Chronic Medication Refill Standing Order for Pediatricand Adult Patients. Requested Prescriptions Pending Prescriptions Disp Refills ??? rOPINIROLE (REQUIP) 5 MG Tablet [Pharmacy Med Name: ROPINIROLE 5MG TABLETS] 90 Tablet 2 Sig: TAKE 1 TABLET BY MOUTH EVERY NIGHT Antiparkinson Dopaminergics and COMT Protocol Passed - 09/22/2022 4:00 AM Passed - Visit with relevant provider in the past 9 months or upcoming 90 days Recent Visits Date Type Provider Dept 09/16/22 Office Visit Pili Elkins APRN, NETTA [facility] [place] 07/05/22 Office Visit Pili Elkins APRN, NETTA [facility] [place] 05/02/22 Office Visit Justen Gale MD [facility] [place] 03/03/22 Office Visit Pili Elkins APRN, NETTA [facility] [place] 01/03/22 Office Visit Dannielle Berg PAC [facility] [place] Showing recent visits within past 270 days and meeting all other requirements Future Appointments No visits were found meeting these conditions. Showing future appointments within next 90 days and meeting all other requirements Passed - Blood pressure on record in past 12 months Clinician-entered: BP Readings from Last 3 Encounters: 09/16/22 118/68 09/14/22 140/84 07/05/22 164/88 Patient-entered: No data recorded documented in this encounter Plan of Treatment Upcoming Encounters Date Type Department Care Team (Late st Contact Info) Description 05/17/2024 2:45 PM TUBERCULOSIS SPECIALIST Office Visit [facility] - Endocrinology - [place] #[address] [place] [address] Annel Rod MD [address]2 [facility] [address] [place] [address] documented as of this encounter Visit Diagnoses Not on filedocumented in this encounter Additional Health Concerns Assessment Noted Time PHQ-9 Depression Total Score: 0 09/17/19 23 11:00 AM CDT documented as of this encounter Care Teams Spring Former Relationship Specialty Start Date End Date Justen Gale MD #[address] [address] [address] PCP - General Family Medicine 10/17/17 David Roberts, TIRE MOUNTER, FOREST RANGER TECHNICIAN #[address] [place] [address] Nurse Practitioner Advanced Practice Nurse 01/31/22 Annel Rod MD #[address] [address] [address] Consulting Physician Endocrinology 07/01/22 documented as of this encounter
--- OUTSIDE RECORDS SUMMARY | 2024-04-26 02:56 | XMS_ITS | Encounter Summary ---
Author Organization [facility] Address [address] [place] [address] Phone Care Team Providers Care Industrial Machine System Technician Name Role Phone Justen Gale MD Primary Care Provider [phone] David Roberts APRN, MOLD MAKING SUPERVISOR Unavailable [phone] Annel Rod MD Unavailable Reason for Visit * Reason Comments Medication Refill Encounter Details Date Type Department Care Team (Late st Contact Info) Description 07/14/2022 Refill [facility] - Family Medicine [facility] [place] #2 [place] [address] Justen Gale MD #[address] [address] Medication Refill Social History Tobacco Use Types [...] Telephone Encounter - Marlys Anderson RN - 07/14/2022 2:54 PM CDT Signed Yesterday (07/13/2022): Lantus SoloStar 100 UNIT/ML Solution Pen-injector Sig: ADMINISTER 50 UNITS UNDER THE SKIN EVERY MORNING Disp: 45 mL ? Refills: 1 Signed by: Justen Gale MD documented in this encounter Plan of Treatment Upcoming Encounters Date Type Department Care Team (Late st Contact Info) Description 05/17/2024 2:45 PM SAS PROGRAMMER REMOTE Office Visit [facility] - Endocrinology [facility] [place] #[address] [place] [address] Annel Rod MD #2 [facility] [address] [place] [address] documented as of this encounter Visit Diagnoses Not on filedocumented in this encounter Additional Health Concerns Assessment Noted Time PHQ-9 Depression Total Score: 0 07/21/19 21 3:00 PM CDT documented as of this encounter Care Teams Industrial Machine System Technician Relationship Specialty Start Date End Date Justen Gale MD #2 [facility] [address] [place] [address] PCP - General Family Medicine 10/17/17 David Roberts APRN, MOLD MAKING SUPERVISOR #2 [place] [address] Nurse Practitioner Advanced Practice Nurse 01/31/22 Annel Rod MD #[address] [address] Consulting Physician Endocrinology 07/01/22 documented as of this encounter
--- OUTSIDE RECORDS SUMMARY | 2024-04-26 02:56 | XMS_ITS | Encounter Summary ---
Author Organization [facility] Address [address] [place] [address] Phone Care Team Providers Care Instructor Kindergarten Name Role Phone Justen Gale MD Primary Care Provider [phone] David Roberts APRN, TECHNICAL SOLUTION ARCHITECT Unavailable [phone] Annel Rod MD Unavailable Reason for Visit * Reason Onset Date Comments Results 07/07/2022 Encounter Details Date Type Department Care Team (Late st Contact Info) Description 07/07/2022 Telephone [facility] - Family [facility] #2 [facility] [place] [address] Justen Gale MD #[address] [address] Results Social History Tobacco Use Types Packs/Day [...] Encounter - Stacy Huang RN - 07/07/2022 8:47 AM CDT LVM for patient to check my chart message My chart message sent. * Telephone Encounter - Stacy Huang RN - 07/07/2022 8:45 AM CDT ----- Message from Pili Elkins APRN, CNP sent at 07/07/2022 7:19 AM CDT ----- Please call patient. She has another UTI, the susceptibility should be back tomorrow and due to herallergies and frequent UTi I would like to wait for this. Thanks! documented in this encounter Plan of Treatment Upcoming Encounters Date Type Department Care Team (Late st Contact Info) Description 05/17/2024 2:45 PM COMPOSITE WORKER Office Visit [facility] - Endocrinology - [place] #2 [place] [address] Annel Rod MD #[address] [address] documented as of this encounter Visit Diagnoses Not on filedocumented in this encounter Additional Health Concerns Assessment Noted Time PHQ-9 Depression Total Score: 0 07/21/19 21 3:00 PM CDT documented as of this encounter Care Teams Instructor Kindergarten Relationship Specialty Start Date End Date Justen Gale MD #[address] [address] PCP - General Family Medicine 10/17/17 David Roberts APRN, TECHNICAL SOLUTION ARCHITECT #2 [place] [address] Nurse Practitioner Advanced Practice Nurse 01/31/22 Annel Rod MD #[address] [phone] Consulting Physician Endocrinology 07/01/22 documented as of this encounter
--- OUTSIDE RECORDS SUMMARY | 2024-04-26 02:56 | XMS_ITS | Encounter Summary ---
Author Organization [facility] Address [address] [place] [address] Phone Care Team Providers Care Protective Signal Installer Helper Name Role Phone Justen Gale MD Primary Care Provider [phone] David Roberts APRN, WOOD PRODUCTS MANUFACTURER Unavailable [phone] Annel Rod MD Unavailable Reason for Visit * Reason Onset Date Comments Fever 07/11/2022 Urinary Pain 07/11/2022 Urinary Frequency 07/11/2022 Encounter Details Date Type Department Care Team (Late st Contact Info) Description 07/11/2022 Nurse Triage [facility] [address] [place] [address] Justen Gale MD #[address] [address] Fever; Urinary Pain; Urinary Frequency Social History Tobacco Use Types Packs/Day Years [...] encounter Miscellaneous Notes * Telephone Encounter - Yady Langley RN - 07/11/2022 9:05 AM CDT SITUATION: Urinary Symptoms with back pain BACKGROUND: Went into ED on 07/05. Has current UTI which she has completed antibiotics course. ASSESSMENT: Symptom Description / Location: [place] chills this morning when woke up, comes and goes. Nausea this morning. Nausea is so bad currently unable to eat or drink. Reports frequency with urination but states it has gotten slightly better. Feels like she is able to empty bladder. Denies blood in urine. Urine has had strong odor during course of illness Pain (0-10): Burning 3/10 when urinating. Intermittent pressure 4-5/10 in lower stomach Denies flank pain. Reports bilateral lower back pain 7/10 which patient has chronically but it is worse than normal . Temp:Denies Treatment / Response: Finished antibiotics Monurol. RECOMMENDATION: See care advice and disposition for Guideline. Appointment scheduled with Primary Care Provider today. Please advise and notify patient with further recommendation. All Patient Appointments Provider Department Dept Phone 07/11/2022 3:45 PM Justen Gale [facility] - [place] [phone] 07/13/2022 1:30 PM Annel Rod [facility] End[facility]inology - [place] [phone] First positive answer recorded, all responses to prior questions were negative. If symptoms increase, change or if new symptoms develop, call your HCP or call back. Recommendations were based on caller information and is not a diagnosis. Verified and reviewed all triage information with caller. Reason for Disposition ??? Side (flank) or lower back pain present Protocols used: URINATION PAIN - FEMALE-A-OH STANDING ORDER AVAILABLE documented in this encounter Plan of Treatment Upcoming Encounters Date Type Department Care Team (Late st Contact Info) Description 05/17/2024 2:45 PM CUSTOMER SOLUTIONS SPECIALIST Office Visit [facility] - Endocrinology [facility] #2 [place] [address] Annel Rod MD #[address] [address] documented as of this encounter Visit Diagnoses Not on filedocumented in this encounter Additional Health Concerns Assessment Noted Time PHQ-9 Depression Total Score: 0 07/21/19 3:00 PM CDT documented as of this encounter Care Teams Protective Signal Installer Helper Relationship Specialty Start Date End Date Justen Gale MD #[address] [address] PCP - General Family Medicine 10/17/17 David Roberts APRN, WOOD PRODUCTS MANUFACTURER #2 [place] [address] Nurse Practitioner Advanced Practice Nurse 01/31/22 Annel Rod MD #[address] [address] Consulting Physician Endocrinology 07/01/22 documented as of this encounter
--- OUTSIDE RECORDS SUMMARY | 2024-04-26 02:56 | XMS_ITS | Encounter Summary ---
Author Organization [facility] Address [address] [place] [address] Phone Care Team Providers Care Eligibility Counselor Name Role Phone Justen Gale MD Primary Care Provider [phone] David Roberts APRN, SPEECH THERAPIST TECHNICIAN Unavailable [phone] Annel Rod MD Unavailable Reason for Visit * Reason Comments Medication Refill Encounter Details Date Type Department Care Team (Late st Contact Info) Description 07/12/2022 Refill [facility] - Endocrinology - [place] #2 [place] [address] Annel Rod MD #[address] [address] Medication Refill Social History Tobacco [...] Telephone Encounter - Annel Rod MD - 07/14/2022 8:22 AM CDT Rx sent * Telephone Encounter - Jennifer Wang, RN - 07/13/2022 8:47 AM CDT Requested Prescriptions Pending Prescriptions Disp Refills ??? HumaLOG KwikPen 100 UNIT/ML Solution Pen-injector [Pharmacy Med Name: HUMALOG 100 U/ML KWIK PENINJ 3ML] 30 mL 0 Sig: ADMINSTER 22 UNITS UNDER THE SKIN BEFORE EACH MEAL, ISF OF 1:15 OF IF>150MG/DL, MAX DAILY DOSE OF 100 UNITS Next appt: 08/08/2022 documented in this encounter Plan of Treatment Upcoming Encounters Date Type Department Care Team (Late st Contact Info) Description 05/17/2024 2:45 PM FINANCIAL ANALYSIS CONSULTANT Office Visit [facility] - Endocrinology - [place] #2 [place] [phone] Annel Rod MD #[address] [address] documented as of this encounter Visit Diagnoses Not on filedocumented in this encounter Additional Health Concerns Assessment Noted Time PHQ-9 Depression Total Score: 0 07/21/19 21 3:00 PM CDT documented as of this encounter Care Teams Eligibility Counselor Relationship Specialty Start Date End Date Justen Gale MD #[address] [address] PCP - General Family Medicine 10/17/17 David Roberts APRN, SPEECH THERAPIST TECHNICIAN #2 [place] [address] Nurse Practitioner Advanced Practice Nurse 01/31/22 Annel Rod MD #[address] [phone] Consulting Physician Endocrinology 07/01/22 documented as of this encounter
--- OUTSIDE RECORDS SUMMARY | 2024-04-26 02:56 | XMS_ITS | Encounter Summary ---
Author Organization [facility] Address [address] [place] [address] Phone Care Team Providers Care Nitrating Acid Mixer Name Role Phone Justen Gale MD Primary Care Provider [phone] David Roberts APRN, COLOR TELEVISION CONSOLE MONITOR Unavailable [phone] Annel Rod MD Unavailable Reason for Visit * Reason Comments Medication Refill Encounter Details Date Type Department Care Team (Late st Contact Info) Description 11/21/2022 Refill [facility] - [place] #2 [place] [address] Annel Rod MD #[address] [address] Medication Refill Social History Tobacco [...] Telephone Encounter - Annel Rod MD - 11/24/2022 12:04 AM CDT Rx sent * Telephone Encounter - Jennifer Wang, RN - 11/22/2022 11:25 AM CDT Requested Prescriptions Pending Prescriptions Disp Refills ??? HumaLOG KwikPen 100 UNIT/ML Solution Pen-injector [Pharmacy Med Name: HUMALOG 100 U/ML KWIK PENINJ 3ML] 30 mL 1 Sig: ADMINSTER 22 UNITS UNDER THE SKIN BEFORE EACH MEAL, ISF OF 1:15 OF IF> 150MG/DL MAX DAILY DOSE OF 100 UNITS Message sent to schedule follow up. documented in this encounter Plan of Treatment Upcoming Encounters Date Type Department Care Team (Late st Contact Info) Description 05/17/2024 2:45 PM COLLAR PACKER Office Visit [facility] - Endocrinology [facility] #2 [place] [address] Annel Rod MD #[address] [address] documented as of this encounter Visit Diagnoses Not on filedocumented in this encounter Additional Health Concerns Assessment Noted Time PHQ-9 Depression Total Score: 0 09/17/19 23 11:00 AM CDT documented as of this encounter Care Teams Nitrating Acid Mixer Relationship Specialty Start Date End Date Justen Gale MD #2 [facility] [address] [place] [address] PCP - General Family Medicine 10/17/17 David Roberts APRN, NETTA #2 [place] [address] Nurse Practitioner Advanced Practice Nurse 01/31/22 Annel Rod MD #[address] [address] Consulting Physician Endocrinology 07/01/22 documented as of this encounter
--- OUTSIDE RECORDS SUMMARY | 2024-04-26 02:56 | XMS_ITS | Encounter Summary ---
Author Organization [facility] Address [address] [place] [address] Phone Care Team Providers Care Universal Grinder Operator Name Role Phone Justen Gale MD Primary Care Provider [phone] David Roberts APRN, BILINGUAL TEACHER AIDE Unavailable [phone] Annel Rod MD Unavailable Reason for Visit * Reason Onset Date Comments Nausea 10/24/2022 Dizziness 10/24/2022 Abdominal Pain 10/24/2022 Encounter Details Date Type Department Care Team (Late st Contact Info) Description 10/24/2022 Nurse Triage [facility] [address] [place] [address] Justen Gale MD #[address] [address] Nausea; Dizziness; Abdominal Pain Social History Tobacco Use Types Packs/Day Years Used Date Smoking Tobacco: Never Smokeless Tobacco: Never Alcohol Use Standard Drinks/Week Comments No 0 (1 standard drink = 0.6 oz pur e alcohol) PHQ-2 Answer Date Recorded Total Score - Questions 1-9 0 /09/2022 Education Answer Date Recorded What is the [...] encounter Miscellaneous Notes * Telephone Encounter - Farzaneh Sheehan RN - 10/24/2022 1:41 PM CDT SITUATION: nausea, off balance (dizziness), abdominal pain BACKGROUND: Symptoms started yesterday, worse today. Pain management with no recent medication changes. Diarrhea with abdominal cramping that started last few days. Abdominal pain started in the past 2 days and worse today. ASSESSMENT: Symptoms: Nausea is worst symptom and with off-balance. BS running baseline, 150-190 before eating in the morning. Abdominal cramping after eating. Unknown what BP has been running. Off balance (dizziness) really started today and is every time she tries to move that started this morning that is constant and occasionally feels like she is going to faint and when she eats feels she feels the same.No falls, but not able to do ADLs today. Patient states generalized weakness, but not one-sided. Diarrhea worsening in the past week with approximately 4 stools per day with cramping immediately before that is resolved awhile after BM in approximately 20-30 minutes. Abdominal tenderness that is R mid abdomen that now that has been present since 0900 this morning. Pain (0-10): 6/10, constant Temp (route, time): Denies fever RECOMMENDATION: Advised patient to go to ED for evaluation. Patient verbalized understanding and is agreeable. See care advice and disposition for guideline. First positive answer recorded, all responses to prior questions were negative. If symptoms increase, change or if new symptoms develop, call your PCP or call back. Recommendation based on caller information and is not a diagnosis. Verified and reviewed all triage information with caller. Teach-back method utilized. Reason for Disposition ? ? Constant abdominal pain lasting > 2 hours Protocols used: ABDOMINAL PAIN - FEMALE-A-OH * Telephone Encounter - Fabiola Daugherty - 10/24/2022 1:39 PM CDT Symptoms: Nausea But No Vomiting, Abdominal Pain - Female - Not , Loss of Appetite, Medication Reaction, Dizziness, Diarrhea Outcome: Warm transfer to an emergent RN NOW! Reason: Can't stand (unless normally can't stand) The caller accepted this outcome documented in this encounter Plan of Treatment Upcoming Encounters Date Type Department Care Team (Late st Contact Info) Description 05/17/2024 2:45 PM CARETAKER RESORT Office Visit [facility] - Endocrinology - [place] #2 [place] [address] Annel Rod MD #[address] [place] [address] documented as of this encounter Visit Diagnoses Not on filedocumented in this encounter Additional Health Concerns Assessment Noted Time PHQ-9 Depression Total Score: 0 09/17/19 23 11:00 AM CDT documented as of this encounter Care Teams Universal Grinder Operator Relationship Specialty Start Date End Date Justen Gale MD #[address] [place] [address] PCP - General Family Medicine 10/17/17 David Roberts, SCREW EYE ASSEMBLER, BILINGUAL TEACHER AIDE #2 [facility] [place] [address] Nurse Practitioner Advanced Practice Nurse 01/31/22 Annel Rod MD #[address] [place] [address] Consulting Physician Endocrinology 07/01/22 documented as of this encounter
--- OUTSIDE RECORDS SUMMARY | 2024-04-26 02:56 | XMS_ITS | Encounter Summary ---
Author Organization [facility] Address [address] [place] [address] Phone Care Team Providers Care Balance Engineer Name Role Phone Justen Gale MD Primary Care Provider [phone] David Roberts APRN, LEAF TINNER Unavailable [phone] Annel Rod MD Unavailable Encounter Details Date Type Department Care Team (Late st Contact Info) Description 01/16/2023 Telephone [facility] [address] [place] [address] Justen Gale MD #[address] [address] Social History Tobacco Use Types Packs/Day [...] Miscellaneous Notes * Telephone Encounter - Christin Fernandez - 01/16/2023 12:59 PM CDT Symptoms: Fall, Head Injury, Depression Outcome: Transfer to application security specialist queue Reason: Getting worse The caller accepted this outcome Caller denied: * Was knocked out (was unconscious) * Acting confused * Neck pain * Trouble walking * Attempted suicide today (injured self or took pills) * Making threats of suicide today documented in this encounter Plan of Treatment Upcoming Encounters Date Type Department Care Team (Late st Contact Info) Description 05/17/2024 2:45 PM INFRASTRUCTURE CONSULTANT Office Visit [facility] - Endocrinology [facility] #2 [place] [address] Annel Rod MD #[address] [address] documented as of this encounter Visit Diagnoses Not on filedocumented in this encounter Additional Health Concerns Assessment Noted Time PHQ-9 Depression Total Score: 0 09/17/19 23 11:00 AM CDT documented as of this encounter Care Teams Balance Engineer Relationship Specialty Start Date End Date Justen Gale MD #[address] [address] PCP - General Family Medicine 10/17/17 David Roberts APRN, LEAF TINNER #2 [place] [address] Nurse Practitioner Advanced Practice Nurse 01/31/22 Annel Rod MD #[address] [address] Consulting Physician Endocrinology 07/01/22 documented as of this encounter
--- OUTSIDE RECORDS SUMMARY | 2024-04-26 02:56 | XMS_ITS | Encounter Summary ---
Author Organization [facility] Address [address] [place] [address] Phone Care Team Providers Care Cooking Teacher Name Role Phone Justen Gale MD Primary Care Provider [phone] David Roberts APRN, ASSOCIATE MARKETING MANAGER Unavailable [phone] Reason for Visit * Reason Onset Date Comments Shortness of Breath 06/20/2022 Encounter Details Date Type Department Care Team (Late st Contact Info) Description 06/20/2022 Nurse Triage [facility] [address] [place] [address] Justen Gale MD #[address] [address] Shortness of Breath Social History Tobacco Use [...] encounter Miscellaneous Notes * Telephone Encounter - Alejandra Rosales RN - 06/21/2022 2:02 PM CST Patient calling for ER f/u appt, see note below, went to ED and they stated everything was fine, ERtold her that she could be having a reaction to 1 of the 3 medicines that were recently prescribed,[address] Gale and 2 from urology, don't think the amlodipine is helping her bp, still elevated, made an appt with provider on 06/24/22 to discuss Patient states they gave her IV nausea med at ER, wants to know if provider can send something in for nausea to pharmacy until seen? Please advise. R FILTER CLEANER * Telephone Encounter - Mahsa Blackburn RN - 06/20/2022 10:13 PM WATER FILTER CLEANER SITUATION: Breathing difficulty, fatigue, nausea BACKGROUND: States symptoms started on 06/17/22. States has felt short of breath and extremely exhausted. States history of high blood pressure and diabetes. ASSESSMENT: Symptom Description / Location: States blood sugars have been good States feels really tired and has no energy States feels mild shortness of breath sometimes States feels short of breath at rest right now States heart rate is 103 and blood pressure is 144/88 States feels really nauseated Denies chest pain, dizziness, abdominal pain States sometimes feels like vision is blurred Pain (0-10): Denies Temp: Denies Treatment / Response: None RECOMMENDATION: See care advice and disposition for Guideline First positive answer recorded, all responses to prior questions were negative. If symptoms increase, change or if new symptoms develop, call your HCP or call back. Recommendations were based on caller information and is not a diagnosis. Verified and reviewed all triage information with caller. Reason for Disposition ??? [1] MODERATE difficulty breathing (e.g., speaks in phrases, SOB even at rest, pulse 100-120) AND [2] NEW-onset or WORSE than normal Protocols used: BREATHING [id number] Meds/allergies and pharmacy verified. Verbalized understanding of all care advice given. Patient states she will go be seen at [facility] ED now. R FILTER CLEANER documented in this encounter Plan of Treatment Upcoming Encounters Date Type Department Care Team (Late st Contact Info) Description 05/17/2024 2:45 PM WATER FILTER CLEANER Office Visit [facility] - Endocrinology [facility] #2 [place] [address] Annel Rod MD #2 [facility] [address] [place] [address] documented as of this encounter Visit Diagnoses Not on filedocumented in this encounter Additional Health Concerns Assessment Noted Time PHQ-9 Depression Total Score: 0 07/21/19 21 3:00 PM CDT documented as of this encounter Care Teams Cooking Teacher Relationship Specialty Start Date End Date Justen Gale MD #2 [facility] [address] [place] [address] PCP - General Family Medicine 10/17/17 David Roberts APRN, ASSOCIATE MARKETING MANAGER #2 [place] [address] Nurse Practitioner Advanced Practice Nurse 01/31/22 documented as of this encounter
--- OUTSIDE RECORDS SUMMARY | 2024-04-26 02:56 | XMS_ITS | Encounter Summary ---
Author Organization [facility] Address [address] [place] [address] [place] [address] Phone Care Team Providers Care Overhead Door Technician Name Role Phone Justen Gale MD Primary Care Provider [phone] David Roberts APRN, FURNITURE RENTAL CONSULTANT Unavailable [phone] Annel Rod MD Unavailable Reason for Visit * Reason Onset Date Comments Medication Refill 11/02/2022 Encounter Details Date Type Department Care Team (Late st Contact Info) Description 11/02/2022 Refill [facility] - Endocr[facility]ology - [place] #[address] [place] [address] Annel Rod MD #[address] [address] Medication Refill Social History Tobacco [...] Telephone Encounter - Jennifer Wang, RN - 11/02/2022 8:33 AM CDT Requested Prescriptions Pending Prescriptions Disp Refills ??? Continuous Blood Gluc Sensor (FreeStyle Eileen 2 Sensor) Misc 6 Each 1 Si Each by Does not apply route every 14 days. Change sensor every 14 days. Next appt: 11/09/2022 documented in this encounter Plan of Treatment Upcoming Encounters Date Type Department Care Team (Late st Contact Info) Description 05/17/2024 2:45 PM MEDICINE ASSISTANT Office Visit [facility] - Endocrinology [facility] #2 [place] [address] Annel Rod MD #2 [facility] [address] [place] [address] documented as of this encounter Visit Diagnoses Not on filedocumented in this encounter Additional Health Concerns Assessment Noted Time PHQ-9 Depression Total Score: 0 09/17/19 23 11:00 AM CDT documented as of this encounter Care Teams Overhead Door Technician Relationship Specialty Start Date End Date Justen Gale MD #2 [facility] [address] [place] [address] PCP - General Family Medicine 10/17/17 David Roberts APRN, FURNITURE RENTAL CONSULTANT #2 [place] [address] Nurse Practitioner Advanced Practice Nurse 01/31/22 Annel Rod MD #2 [facility] [address] [place] [address] [address] Consulting Physician Endocrinology 07/01/22 documented as of this encounter
--- OUTSIDE RECORDS SUMMARY | 2024-04-26 02:56 | XMS_ITS | Encounter Summary ---
Author Organization [facility] Address [address] [place] [address] Phone Care Team Providers Care Match Up Person Name Role Phone Justen Gale MD Primary Care Provider [phone] David Roberts APRN, JOCKEY'S AGENT Unavailable [phone] Encounter Details Date Type Department Care Team (Late st Contact Info) Description 06/14/2022 Telephone [facility] - [place] #2 [place] [address] Annel Rod MD #[address] [address] Social History Tobacco Use Types [...] Telephone Encounter - Jennifer Wang, RN - 06/14/2022 2:58 PM LIFE SCIENCE TEACHER Message received that patient would like to schedule a follow up. Appointment scheduled. SCIENCE TEACHER documented in this encounter Plan of Treatment Upcoming Encounters Date Type Department Care Team (Late st Contact Info) Description 05/17/2024 2:45 PM LIFE SCIENCE TEACHER Office Visit [facility] - Endocrinology [facility] #2 [place] [address] Annel Rod MD #2 [facility] [address] [place] [address] documented as of this encounter Visit Diagnoses Not on filedocumented in this encounter Additional Health Concerns Assessment Noted Time PHQ-9 Depression Total Score: 0 07/21/19 21 3:00 PM CDT documented as of this encounter Care Teams Match Up Person Relationship Specialty Start Date End Date Justen Gale MD #2 [facility] [address] [place] [address] PCP - General Family Medicine 10/17/17 David Roberts APRN, JOCKEY'S AGENT #2 [place] [address] Nurse Practitioner Advanced Practice Nurse 01/31/22 documented as of this encounter
--- OUTSIDE RECORDS SUMMARY | 2024-04-26 02:56 | XMS_ITS | Encounter Summary ---
Author Organization [facility] Address [address] [address] Phone Care Team Providers Care Cornetist Name Role Phone Justen Gale MD Primary Care Provider [phone] David Roberts APRN, WEB SERVICES MANAGER Unavailable [phone] Annel Rod MD Unavailable Reason for Visit * Reason Comments Medication Refill Encounter Details Date Type Department Care Team (Late st Contact Info) Description 07/12/2022 Refill [facility] - Family Medicine [facility] #2 [place] [address] Justen Gale MD #[address] [address] Medication Refill Social History Tobacco Use Types [...] Telephone Encounter - Lety Man RN - 07/13/2022 8:07 AM CDT Medication failed the protocol, provider to review and approve the medication order if appropriate. Requested Prescriptions Pending Prescriptions Disp Refills Lantus SoloStar 100 UNIT/ML Solution Pen-injector [Pharmacy Med Name: LANTUS SOLOSTAR PEN INJ 3ML] 45 mL 1 Sig: ADMINISTER 50 UNITS UNDER THE SKIN EVERY MORNING Not Delegated - Insulin Protocol Failed - 07/12/2022 11:54 PM Failed - This refill cannot be delegated Passed - Visit with relevant provider in past 12 months or upcoming 90 days Recent Visits Date Type Provider Dept 07/05/22 Office Visit Pili Elkins APRN, NETTA [facility] [place] 05/02/22 Office Visit Justen Gale MD [facility] [place] 03/03/22 Office Visit Pili Elkins APRN, WEB SERVICES MANAGER [facility] [place] 01/03/22 Office Visit Dannielle Berg PAC [facility] [place] 12/07/21 Office Visit Pili Elkins APRN, WEB SERVICES MANAGER [facility] [place] 11/09/21 Office Visit Pili Elkins APRN, NETTA [facility] [place] 10/08/21 Office Visit Angelito Alegria APRN, NETTA [facility] [place] 08/30/21 [facility] Show[facility] recent visits within past 365 days and meeting all other requirements Future Appointments No visits were found meeting these conditions. Showing future appointments within next 90 days and meeting all other requirements documented in this encounter Plan of Treatment Upcoming Encounters Date Type Department Care Team (Late st Contact Info) Description 05/17/2024 2:45 PM DOCTOR OF VETERINARY MEDICINE Office Visit [facility] - Endocrinology - [place] #2 [place] [address] Annel Rod MD #2 [facility] [address] [place] [address] documented as of this encounter Visit Diagnoses Not on filedocumented in this encounter Additional Health Concerns Assessment Noted Time PHQ-9 Depression Total Score: 0 07/21/19 21 3:00 PM CDT documented as of this encounter Care Teams Cornetist Relationship Specialty Start Date End Date [facility] Gale MD [facility] [address] [place] [address] PCP - General Family Medicine 10/17/17 David Roberts, CHIP TESTER, WEB SERVICES MANAGER #2 [facility] [place] [address] Nurse Practitioner Advanced Practice Nurse 01/31/22 Annel Rod MD #2 [facility] [address] [place] [address] Consulting Physician Endocrinology 07/01/22 documented as of this encounter
--- OUTSIDE RECORDS SUMMARY | 2024-04-26 02:56 | XMS_ITS | Encounter Summary ---
Author Organization [facility] Address [address] [place] [address] Phone Care Team Providers Care Hydro Pneumatic Tester Name Role Phone Justen Gale MD Primary Care Provider [phone] David Roberts APRN, SUPERVISOR POWER REACTOR Unavailable [phone] Annel Rod MD Unavailable Reason for Visit * Reason Onset Date Comments Bleeding/Bruising 07/05/2022 Coagulation Disorder 07/05/2022 Gum Problem 07/05/2022 Encounter Details Date Type Department Care Team (Late st Contact Info) Description 07/05/2022 Nurse Triage [facility] [address] [place] [address] Justen Gale MD #[address] [address] Bleeding/Bruising; Coagulation Disorder; Gum Problem Social History Tobacco Use Types Packs/Day [...] encounter Miscellaneous Notes * Telephone Encounter - Stephanie Hilton, RN - 07/05/2022 4:48 PM CDT SITUATION: Gums are bleeding BACKGROUND: Started 4 days ago ASSESSMENT: Symptom Description / Location: Patient states that she is having blood coming from her gums and can taste the blood in her mouth. Patient is on xarelto and has been on it for a couple of years. Patient denies ever having this before. Patient states went to brush her teeth today and when she touched the brush to her gum it started bleeding. States that it was moderate to large amount of bleed. States that it is not bleeding now but still feels like she can taste blood in her mouth. Patient states that she has been tired the last few days and also has headache. States that she has not had muchof an appetite recently. Denies any other symptoms Pain (0-10): 410 Temp: denies Treatment / Response: denies LMP / / : N/A RECOMMENDATION: See care advice and disposition for Guideline No available appointments for today. Advised patient to go to the prompt care to be seen. Patient states she may go to the ED to be evaluated instead of the prompt care but she will go and be seen tonight. First positive answer recorded, all responses to prior questions were negative. If symptoms increase, change or if new symptoms develop, call your HCP or call back. Recommendations were based on caller information and is not a diagnosis. Verified and reviewed all triage information with caller. Reason for Disposition ??? Gum bleeding and taking Coumadin (warfarin) or other strong blood thinner, or known bleeding disorder (e.g., thrombocytopenia) Protocols used: MOUTH [id number] documented in this encounter Plan of Treatment Upcoming Encounters Date Type Department Care Team (Late st Contact Info) Description 05/17/2024 2:45 PM COMBAT CONTROL MANAGER Office Visit [facility] - Endocrin[facility] #2 [place] [address] Annel Rod MD #[address] [address] documented as of this encounter Visit Diagnoses Not on filedocumented in this encounter Additional Health Concerns Assessment Noted Time PHQ-9 Depression Total Score: 0 07/21/19 21 3:00 PM CDT documented as of this encounter Care Teams Hydro Pneumatic Tester Relationship Specialty Start Date End Date Justen Gale MD #[address] [address] PCP - General Family Medicine 10/17/17 David Roberts APRN, SUPERVISOR POWER REACTOR #2 [place] [address] Nurse Practitioner Advanced Practice Nurse 01/31/22 Annel Rod MD #[address] [address] Consulting Physician Endocrinology 07/01/22 documented as of this encounter
--- OUTSIDE RECORDS SUMMARY | 2024-04-26 02:56 | XMS_ITS | Encounter Summary ---
Author Organization [facility] Address [address] [place] [address] Phone Care Team Providers Care Hardboard Grinder Name Role Phone Justen Gale MD Primary Care Provider [phone] David Roberts APRN, TACK COVERER Unavailable [phone] Reason for Visit * Reason Onset Date Comments Follow-up 05/04/2022 Encounter Details Date Type Department Care Team (Late st Contact Info) Description 05/04/2022 Telephone [facility] - [facility] Medicine [facility] #2 [place] [address] Justen Gale MD #[address] [id number] Follow-up Social History Tobacco Use Types Packs/Day [...] Coronavirus/COVID-19? No / Unsure 05/02/2022 3:22 PM EMAIL PRODUCTION SPECIALIST documented as of this encounter Miscellaneous Notes * Telephone Encounter - Stacy Huang RN - 05/05/2022 9:47 AM CST Sent message to patient through my chart. L PRODUCTION SPECIALIST * Telephone Encounter - Justen Gale MD - 05/04/2022 2:40 PM CST Please call. No referral needed. The cement and concrete plant worker wont be able to help you L PRODUCTION SPECIALIST documented in this encounter Plan of Treatment Upcoming Encounters Date Type Department Care Team (Late st Contact Info) Description 05/17/2024 2:45 PM EMAIL PRODUCTION SPECIALIST Office Visit [facility] - Endocrinology [facility] #2 [place] [address] Annel Rod MD #2 [facility] [address] [place] [address] documented as of this encounter Visit Diagnoses Not on filedocumented in this encounter Additional Health Concerns Assessment Noted Time PHQ-9 Depression Total Score: 0 07/21/19 21 3:00 PM CDT documented as of this encounter Care Teams Hardboard Grinder Relationship Specialty Start Date End Date Justen Gale MD #2 [facility] [address] [place] [address] PCP - General Family Medicine 10/17/17 David Roberts, FURNACE CHARGING MACHINE OPERATOR, TACK COVERER #2 [place] [address] Nurse Practitioner Advanced Practice Nurse 01/31/22 documented as of this encounter
--- OUTSIDE RECORDS SUMMARY | 2024-04-26 02:56 | XMS_ITS | Encounter Summary ---
Author Organization [facility] Address [address] [place] [address] Phone Care Team Providers Care Digital Strategist Senior Manager Name Role Phone Justen Gale MD Primary Care Provider [phone] David Roberts APRN, PROMOTIONAL MODEL Unavailable [phone] Annel Rod MD Unavailable Reason for Visit * Reason Onset Date Comments Shortness of Breath 01/15/2023 Anxiety 01/15/2023 Pain 01/15/2023 Encounter Details Date Type Department Care Team (Late st Contact Info) Description 01/15/2023 [facility] [address] [place] [address] Justen Gale MD #[address] [address] Shortness of Breath; Anxiety; Pain Social History Tobacco Use Types Packs/Day [...] Telephone Encounter - Lizzy Bishop RN - 01/15/2023 1:41 AM CDT SITUATION (caller perception/concerns): Symptoms post fall BACKGROUND (events leading up to call): Patient has had a fall with a head injury in the recent past ASSESSMENT: Patient had a fall 3-4 weeks ago States she is dealing with a concussion States she is having a headache and neck pain Decreased movement from side to side Pain is currently 4/10 Anxiety, crying easily, agitated; anxiety is a 7/10 States she is restless, cant focus, feel strange in her head Nausea Can't eat a lot of food Feel like she is going to pass out Hot flashes Feel like she can not breath, short of breath; no wheezing; difficulty to walk to the bathroom due to shortness of breath and felling like she is going to pass out Above symptoms are worse at night-- Episodes last between 15 and 30 minutes Last blood sugar 210; normal range is 150's Patient is on Xarelto RECOMMENDATION: Recommendation is for patient to go to the ED for evaluation. Patient agrees with recommendation and verbalizes understanding. If symptoms increase, change, or if new symptoms develop, patient to report to emergency room. Verified and reviewed all information with caller. Caller verbalized understanding of information given and denies further questions. Teach-back method utilized. Reason for Disposition ??? [1] MODERATE difficulty breathing (e.g., speaks in phrases, SOB even at rest, pulse 100-120) AND [2] NEW-onset or WORSE than normal Protocols used: BREATHING [id number] documented in this encounter Plan of Treatment Upcoming Encounters Date Type Department Care Team (Late st Contact Info) Description 05/17/2024 2:45 PM GAS LEAK INSPECTOR Office Visit [facility] - Endocrinology - [place] #[address] [place] [address] Annel Rod MD #2 [facility] [address] [place] [address] documented as of this encounter Visit Diagnoses Not on filedocumented in this encounter Additional Health Concerns Assessment Noted Time PHQ-9 Depression Total Score: 0 09/17/19 23 11:00 AM CDT documented as of this encounter Care Teams Digital Strategist Senior Manager Relationship Specialty Start Date End Date Justen Gale MD #2 [facility] [address] [place] [address] PCP - General Family Medicine 10/17/17 David Roberts APRN, NETTA #2 [place] [address] Nurse Practitioner Advanced Practice Nurse 01/31/22 Annel Rod MD [address] [address] Consulting Physician Endocrinology 07/01/22 documented as of this encounter
--- OUTSIDE RECORDS SUMMARY | 2024-04-26 02:56 | XMS_ITS | Encounter Summary ---
Author Organization [facility] Address [address] [place] [address] Phone Care Team Providers Care Slitter And Cutter Operator Name Role Phone Justen Gale MD Primary Care Provider [phone] David Roberts APRN, CAD CAM PROGRAMMER Unavailable [phone] Annel Rod MD Unavailable Reason for Visit * Reason Comments Medication Refill Encounter Details Date Type Department Care Team (Late st Contact Info) Description 10/24/2022 Refill [facility] - Family Medicine [facility] #2 [place] [address] Pili Elkins APRN, CAD CAM PROGRAMMER #[address] [address] Medication Refill Social History Tobacco [...] st Contact Info) Description 05/17/2024 2:45 PM FIELD PLACEMENT DIRECTOR Office Visit [facility] - Endocrinology [facility] #2 [place] [address] Annel Rod MD #[address] [address] documented as of this encounter Visit Diagnoses Diagnosis Essential hypertension Unspecified essential hypertension documented in this encounter Additional Health Concerns Assessment Noted Time PHQ-9 Depression Total Score: 0 09/17/19 23 11:00 AM CDT documented as of this encounter Care Teams Slitter And Cutter Operator Relationship Specialty Start Date End Date Justen Gale MD #[address] [address] PCP - General Family Medicine 10/17/17 David Roberts APRN, NETTA #2 [place] [address] Nurse Practitioner Advanced Practice Nurse 01/31/22 Annel Rod MD #[address] [address] Consulting Physician Endocrinology 07/01/22 documented as of this encounter
--- OUTSIDE RECORDS SUMMARY | 2024-04-26 02:56 | XMS_ITS | Encounter Summary ---
Author Organization [email or web address] Care Team Providers Care Principal Network Engineer Name Role Phone Justen Gale MD Primary Care Provider [phone] David Roberts APRN, BUILD MANAGER Unavailable [phone] Annel Rod MD Unavailable Encounter Details Date Type Department Care Team (Latest Contact Info) Description 09/16/2022 Travel Social History Tobacco Use Types Packs/Day [...] all 09/16/2022 11:00 AM CDT Jane Hawkins Be th Feeling down, depressed, or hopeless Not at all 09/16/2022 11:00 AM CDT RossJane New th * Over the past 2 weeks, how often have you been bothered by any of the following problems? Question Answer Date of Assessment Author Patient Health Questionnaire -2 Score 0 09/16/2022 11:00 AM CDT Jane Hawkins th documented as of this encounter Plan of Treatment Upcoming Encounters Date Type Department Care Team (Late st Contact Info) Description 05/17/2024 2:45 PM CUSTOMER SUPPORT CONSULTANT Office Visit [facility] - Endocrinology [facility] #2 [place] [address] Annel Rod MD #[address] [address] documented as of this encounter Visit Diagnoses Not on filedocumented in this encounter Additional Health Concerns Assessment Noted Time PHQ-9 Depression Total Score: 0 09/17/19 11:00 AM CDT documented as of this encounter Care Teams Principal Network Engineer Relationship Specialty Start Date End Date Justen Gale MD #2 [facility] [address] [place] [address] PCP - General Family Medicine 10/17/17 David Roberts, SAMMYING MACHINE OPERATOR, BUILD MANAGER #2 [place] [address] Nurse Practitioner Advanced Practice Nurse 01/31/22 Annel Rod MD #[address] [phone] Consulting Physician Endocrinology 07/01/22 documented as of this encounter
--- OUTSIDE RECORDS SUMMARY | 2024-04-26 02:56 | XMS_ITS | Encounter Summary ---
Author Organization [facility] Address [address] [place] [address] Phone Care Team Providers Care Ping Pong Table Assembler Name Role Phone Justen Gale MD Primary Care Provider [phone] David Roberts APRN, CANE CUTTER Unavailable [phone] Annel Rod MD Unavailable Reason for Visit * Reason Comments ED Follow-up Patient is here for an urgent care follow up for itching. They prescribed her a medication but she hasn't taken it because she's afraid it'll make her itch more. Encounter Details Date Type Department Care Team (Late st Contact Info) Description 09/16/2022 11:00 AM CDT Office Visit [facility] - Family Medicine [facility] #2 [place] [address] Pili Elkins APRN, CANE CUTTER #[address] [address] Pruritus (Primary Dx) Discharge Disposition: Discharged to home [...] AM CDT documented as of this encounter Last Filed Vital Signs Vital Sign Reading Time Taken Comments Blood Pressure 118/68 09/16/2022 11:05 AM CDT Pulse 91 09/16/2022 11:05 AM CDT Temperature 36.4 ??C (97.5 ??F) 09/16/2022 11:05 AM C DT Respiratory Rate 14 09/16/2022 11:05 AM CDT Oxygen Saturation 98% 09/16/2022 11:05 AM CDT Inhaled Oxygen Concentration - - Weight 129.3 kg (285 lb) 09/16/2022 11:05 AM CDT Height 154.9 cm (5' 1 ) 09/16/2022 11:05 AM CDT Body Mass Index 53.85 09/16/2022 11:05 AM CDT documented in this encounter Functional Status * Question Answer Date of Assessment Author Little interest or pleasure in doing things Not at all 09/16/2022 11:00 AM CDT Jane Hawkins Feeling down, depressed, or hopeless Not at all 09/16/2022 11:00 AM CDT Jane Hawkins * Over the past 2 weeks, how often have you been bothered by any of the following problems? Question Answer Date of Assessment Author Patient Health Questionnaire -2 Score 0 09/16/2022 11:00 AM CDT Jane Hawkins documented as of this encounter Progress Notes * Jane Hawkins - 09/16/2022 11:00 AM CDT Karly Marques, 67 y.o., female is here for ED Follow-up (Patient is here for an urgent care follow up for itching. They prescribed her a medication but she hasn't taken it because she's afraid it'll make her itch more.) Medication Refills: Patient reports/denies need for medication [...] IF>150MG/DL, MAX DAILY DOSE OF 100 UNITS 07/14/22 Yes Annel Rod MD hydroCHLOROthiazide (MICROZIDE) 12.5 MG Capsule Take 1 Capsule by mouth daily. 07/16/22 Yes Pili Elkins APRN, NETTA HYDROcodone-acetaminophen (NORCO) 7.5-325 MG Tablet TK 1 T PO QID PRN. DO NOT FILL UNTIL Yes Tyler Smith MD hydrOXYzine (ATARAX) 10 MG Tablet 09/14/22 Tyler Smith MD hydrOXYzine (ATARAX) 25 MG Tablet Take 25 mg by mouth. 06/08/22 Tlyer Smith MD Lantus SoloStar 100 UNIT/ML Solution Pen-injector ADMINISTER 50 UNITS UNDER THE SKIN EVERY MORNING 08/30/22 Yes Justen Gale MD methenamine (HIPREX) 1 GM Tablet Take 1,000 mg by mouth. 04/27/22 Yes Tyler Smith MD methenamine (HIPREX) 1 GM Tablet Take 1 g by mouth 2 times daily. Yes Tyler Smith MD metoprolol tartrate (LOPRESSOR) 25 MG Tablet Take 1 Tablet by mouth 2 times daily. 07/05/22 Yes Pili Elkins APRN, CANE CUTTER [facility] Supply and instructions: 09/09/20 Yes Justen Gale MD Myrbetriq 50 MG TABLET SR 24 HR Take 50 mg by mouth daily. Patient not taking: Reported on 05/14/2022 04/27/22 Tyler Smith MD naloxone HCl (Narcan) 4 MG/0.1ML Liquid as needed 05/13/21 Tyler Smith MD nystatin 861274 UNIT/GM Powder APPLY TO THE AFFECTED AREA [...] not taking: Reported on 05/14/2022 01/03/22 Dannielle Berg, JAMAR Cedeñouch Delica Lancets 33G [facility] 1 Lancet by Does not apply route [...] EVERY NIGHT 12/03/21 Yes Justen Gale MD Semaglutide,0.25 or 0.5MG/DOS, (Ozempic, 0.25 or 0.5 MG/DOSE,) 2 MG/3ML Solution Pen-injector 0.25 mg SC weekly for 4 weeks and 0.5 mg SC weekly for 4 weeks 09/14/22 Yes Annel Rod MD trospium (SANCTURA) 20 MG Tablet Take 20 mg by mouth 2 times daily. Patient not taking: Reported on 07/05/2022 Provider, MD Tyler There are no discontinued [...] Planning and HCC * Pili Elkins APRN, CANE CUTTER - 09/16/2022 11:00 AM CDT [facility] #2 [facility] [address] Dept: [phone] Dept Loc: [phone] Loc Patient: Karly Marques : 1955 Sex: female Subjective Subjective: HPI: Karly Marques presents for ED Follow-up (Patient is here for an urgent care follow up for itching. They prescribed her a medication but she hasn't taken it because she's afraid it'll make her itch more.) . Patient presents today for urgent care follow up for itching. She reports for the past 4-5 days shehas had persistent itching. She denies rash, changes of household items, pets, or dry skin. She reports the itching moves around. Denies new medications. She did plant some new galdamez in the last couple of weeks. Past Medical History Positives Diagnosis Date ??? Breast cancer (HCC) ??? Diabetes (HCC) ??? DVT (deep venous thrombosis) (HCC) ??? High blood pressure ??? History of pulmonary embolus (PE) ??? Hyperthyroidism ??? Neuropathy ??? Osteoarthritis ??? Restless leg syndrome ??? Sciatica ??? Sleep apnea ??? Spinal stenosis Current Outpatient Medications on File Prior to Visit Medication Sig Dispense Refill ??? amitriptyline (ELAVIL) [...] ??? HumaLOG KwikPen 100 UNIT/ML Solution Pen-injector ADMINSTER 22 UNITS UNDER THE SKIN BEFORE EACHMEAL, ISF OF 1:15 OF IF>150MG/DL, MAX DAILY DOSE OF 100 UNITS 30 mL 1 ??? hydroCHLOROthiazide (MICROZIDE) 12.5 MG Capsule Take 1 Capsule by mouth daily. 90 Capsule 3 ??? HYDROcodone-acetaminophen (NORCO) 7.5-325 MG Tablet TK 1 T PO QID PRN. DO NOT FILL UNTIL 02/13/2019 0 ??? hydrOXYzine (ATARAX) 10 MG Tablet (Patient not taking: Reported on 09/16/2022) ??? hydrOXYzine (ATARAX) 25 MG Tablet Take 25 mg by mouth. ??? Lantus SoloStar 100 UNIT/ML Solution Pen-injector ADMINISTER 50 UNITS UNDER THE SKIN EVERY MORNING 45 mL 1 ??? methenamine (HIPREX) 1 GM Tablet Take 1,000 mg by mouth. ??? methenamine (HIPREX) 1 GM Tablet Take 1 g by mouth 2 times daily. ??? metoprolol tartrate (LOPRESSOR) 25 MG Tablet Take 1 Tablet by mouth 2 times daily. 180 Tablet 3 ??? Misc. Devices [facility] [place] and instructions: 1 Each 0 ??? Myrbetriq 50 MG TABLET SR 24 HR Take 50 mg by mouth daily. (Patient not taking: Reported on 05/14/2022) ??? naloxone HCl (Narcan) 4 MG/0.1ML Liquid as needed ??? nystatin 190865 UNIT/GM Powder APPLY TO THE AFFECTED AREA THREE TIMES DAILY FOR 14 DAYS (Patient not taking: Reported on 03/01/2022) ??? ondansetron (Zofran) 4 MG Tablet Take 1 Tablet by mouth every 8 hours as needed for Nausea - 1st line. 15 Tablet 0 ??? OneTouch Delica Lancets 33G Misc 1 Lancet [...] MOUTH EVERY NIGHT 90 Tablet 2 ??? Semaglutide,0.25 or 0.5MG/DOS, (Ozempic, 0.25 or 0.5 MG/DOSE,) 2 MG/3ML Solution Pen-injector 0.25 mg SC weekly for 4 weeks and 0.5 mg SC weekly for 4 weeks 6 mL 0 ??? trospium (SANCTURA) 20 MG Tablet Take 20 mg by mouth 2 times daily. (Patient not taking: Reported on 07/05/2022) No current facility-administered medications on file prior to visit. Allergies Allergen Reactions ??? Ceftriaxone Anaphylaxis ??? [...] (see Comments) Shaky, restlessness, itching, throat swelling Review of Systems Constitutional: Negative for activity change, appetite change, chills, diaphoresis, fatigue and fever. Respiratory: Negative for cough, chest tightness, shortness of breath and wheezing. Cardiovascular: Negative for chest pain and palpitations. Gastrointestinal: Negative for abdominal pain, blood in stool, constipation, diarrhea and nausea. Skin: Negative for color change, pallor, rash and wound. Itching to various areas at different times Objective Objective: BP 118/68 (BP Location: Left Arm, BP Position: Sitting, BP Cuff Size: Regular) Pulse 91 Temp 97.5 ??F (36.4 ??C) (Temporal) Resp 14 Ht 5' 1 (1.549 m) Wt 285 lb (129.3 kg) SpO2 98% BMI 53.85 kg/m?? Physical Exam Vitals and nursing note reviewed. Constitutional: General: She is not in acute distress. Appearance: Normal appearance. She is well-developed. She is not diaphoretic. HENT: Head: Normocephalic [...] CVA tenderness, guarding or rebound. Musculoskeletal: General: No tenderness. Normal range of motion. Cervical back: Normal range of motion. Skin: General: Skin is warm and dry. Capillary Refill: Capillary refill takes less than 2 seconds. Findings: No rash. Neurological: General: No focal deficit present. Mental Status: She is alert and oriented to person, place, and time. Psychiatric: Behavior: Behavior normal. Thought Content: Thought content normal. Judgment: Judgment normal. Medical Decision Making: Assessment & Plan Diagnoses and all orders for this visit: Pruritus - CMP (COMPREHENSIVE METABOLIC PANEL); Future - HEPATIC FUNCTION PANEL; Future - COMPLETE BLOOD COUNT (CBC) WITH DIFF; Future Other orders - hydrOXYzine (ATARAX) 10 MG Tablet; (Patient not taking: Reported on 09/16/2022) No rash noted, mild erythema to patient's back. Will send for testing to rule out infection, liver failure, kidney failure. Discussed with patient this goes back normal may be related to Galdamez and will have her stay away from these for the next 2 weeks. Okay to take hydroxyzine discussed with patient similar to Benadryl. Verbalized understanding. Follow-up if symptoms worsen or fail to improve. No follow-ups on file. documented in this encounter Plan of Treatment Upcoming Encounters Date Type Department Care Team (Late st Contact Info) Description 05/17/2024 2:45 PM RAILROAD EMERGENCY SERVICES MANAGER Office Visit [facility] - Endocrinology - [place] #[address] [place] [address] Annel Rod MD #[address] [facility] [address] [address] [place] [address] documented as of this encounter Results * (ABNORMAL) CMP (COMPREHENSIVE METABOLIC PANEL) (09/16/2022 11:50 AM CDT) Pathologist [facility] SODIUM 139 136 - 144 mmol/L 09/16/2022 1:32 PM CDT [facility] POTASSIUM 3.5 3.5 - 5.1 mmol/L 09/16/2022 1:32 PM T [facility] CHLORIDE 101 100 - 110 mmol/L 09/16/2022 1:32 PM [facility] CO2, VENOUS 28 22 - 32 mmol/L 09/16/2022 1:32 PM CDT [facility] ANION GAP 13.5 8.0 - 20.0 mmol/L 09/16/2022 1:32 PM [facility] GLUCOSE 164(H) 70 - 99 mg/dL 09/16/2022 1:32 PM T [facility] BUN 21 8 - 23 mg/dL 09/16/2022 1:32 PM [facility] CREATININE, BLOOD 0.80 0.60 - 1.10 mg/dL 09/16/2022 1:32 PM [facility] BUN/CREATININE RATIO 26(H) 12 - 20 ratio 09/16/2022 1:32 PM [facility] TOTAL PROTEIN 8.1 6.0 - 8.3 g/dL 09/16/2022 1:32 PM [facility] ALBUMIN 3.9 3.5 - 5.2 g/dL 09/16/2022 1:32 PM [facility] Comment: The colormetric methods used for the determination of Albumin may lead to falsely elevated test results in patients suffering from renal failure or insufficiency due to interference with other proteins. A/G RATIO 0.9(L) 1.0 - 2.0 09/16/2022 1:32 PM T [facility] CALCIUM 10.0 8.9 - 10.3 mg/dL 09/16/2022 1:32 PM [facility] T BILI 0.6 <=1.2 mg/dL 09/16/2022 1:32 PM [facility] SGOT (AST) 20 <=32 U/L 09/16/2022 1:32 PM CDT [facility] SGPT (ALT) 21 <=41 U/L 09/16/2022 1:32 PM CDT [facility] ALKALINE PHOSPHATASE 94 35 - 105 U/L 09/16/2022 1:32 PM CDT [facility] IS THE PATIENT REQUIRED TO BE FASTING? No 09/16/2022 1:32 PM CDT [facility] GFR, ESTIMATED >60 >=60 09/16/2022 1:32 PM CDT [facility] Comment: Creatinine Clearance is the preferred criteria for selecting drug dose adjustments in renally impaired patients. ??The GFR is provided as additional pertinent clinical information. GFR is reported in mL/min/1.73 sq m. Calculation based on the Chronic Kidney Disease Epidemiology Collaboration (CKD- EPI) equation refit without adjustment for race. GFR, EST. >60 >=60 023 1:32 PM CDT [facility] GFR, EST. NONAFRICAN >60 >=60 09/16/2022 1:32 PM CDT [facility] Blood Venipuncture / Unknown 09/16/2022 11:50 AM CDT 09/16/2022 12:29 PM CDT us Pili Elkins APRN, NETTA CHEMISTRY ORDERABLES Final Result [facility] #[address] [place] [address] documented in this encounter Visit Diagnoses Diagnosis Pruritus- Primary Unspecified pruritic disorder documented in this encounter Additional Health Concerns Assessment Noted Time PHQ-9 Depression Total Score: 0 09/17/19 23 11:00 AM CDT documented as of this encounter Care Teams Ping Pong Table Assembler Relationship Specialty Start Date End Date Justen Gale MD #[address] [facility] [address] [address] [address] PCP - General Family Medicine 10/17/17 David Roberts APRN, NETTA #2 [place], [place] [id number] Nurse Practitioner Advanced Practice Nurse 01/31/22 Annel Rod MD [facility] [facility] [address] Consulting Physician Endocrinology 07/01/22 documented as of this encounter
--- OUTSIDE RECORDS SUMMARY | 2024-04-26 02:56 | XMS_ITS | Encounter Summary ---
Author Organization [facility] Address [address] [place] [address] Phone Care Team Providers Care Manganese Breaker Name Role Phone Justen Gale MD Primary Care Provider [phone] David Roberts APRN, ENERGY EFFICIENCY FINANCE MANAGER Unavailable [phone] Annel Rod MD Unavailable Encounter Details Date Type Department Care Team (Late st Contact Info) Description 10/19/2022 Telephone [facility] - [facility] #2 [place] [address] Justen Gale MD #[address] [address] Social History Tobacco Use Types Packs/Day Years [...] Telephone Encounter - Justen Gale MD - 10/19/2022 1:29 PM CDT d documented in this encounter Plan of Treatment Upcoming Encounters Date Type Department Care Team (Late st Contact Info) Description 05/17/2024 2:45 PM MANAGER DISH Office Visit [facility] - Endocrinology - [place] #2 [place] [address] Annel Rod MD #[address] [address] documented as of this encounter Visit Diagnoses Not on filedocumented in this encounter Additional Health Concerns Assessment Noted Time PHQ-9 Depression Total Score: 0 09/17/19 23 11:00 AM CDT documented as of this encounter Care Teams Manganese Breaker Relationship Specialty Start Date End Date Justen Gale MD #[address] [address] PCP - General Family Medicine 10/17/17 David Roberts APRN, ENERGY EFFICIENCY FINANCE MANAGER #2 [place] [address] Nurse Practitioner Advanced Practice Nurse 01/31/22 Annel Rod MD #[address] [phone] Consulting Physician Endocrinology 07/01/22 documented as of this encounter
--- OUTSIDE RECORDS SUMMARY | 2024-04-26 02:56 | XMS_ITS | Encounter Summary ---
Author Organization [facility] Address [address] [place] [address] Phone Care Team Providers Care Collections Director Name Role Phone Justen Gale MD Primary Care Provider [phone] David Roberts APRN, FRAME HAND Unavailable [phone] Annel Rod MD Unavailable Reason for Visit * Reason Comments Medication Refill Encounter Details Date Type Department Care Team (Late st Contact Info) Description 08/30/2022 Refill [facility] #2 [place] [phone] Justen Gale MD #[address] [address] Medication Refill Social History Tobacco Use Types [...] Telephone Encounter - Marlys Anderson RN - 08/30/2022 3:54 PM CDT Medication failed the protocol, provider to review and approve the medication order if appropriate. Requested Prescriptions Pending Prescriptions Disp Refills Lantus SoloStar 100 UNIT/ML Solution Pen-injector [Pharmacy Med Name: LANTUS SOLOSTAR PEN INJ 3ML] 45 mL 1 Sig: ADMINISTER 50 UNITS UNDER THE SKIN EVERY MORNING Not Delegated - Insulin Protocol Failed - 08/30/2022 11:46 AM Failed - This refill cannot be delegated Passed - Visit with relevant provider in past 12 months or upcoming 90 days Recent Visits Date Type Provider Dept 07/05/22 Office Visit Pili Elkins APRN, CNP [facility] [place] 05/02/22 Office Visit Justen Gale MD [facility] [place] 03/03/22 Office Visit Pili Elkins APRN, NETTA [facility] [place] 01/03/22 Office Visit Dannielle Berg PAC [facility] [place] 12/07/21 Office Visit Pili Elkins APRN, NETTA [facility] [place] 11/09/21 Office Visit Pili Elkins APRN, NETTA [facility] [place] 10/08/21 Office Visit Angelito Alegria APRN, CNP [facility] [place] 08/30/21 Office Visit Justen Gale MD [facility] Showing recent visits within past 365 days and meeting all other requirements Future Appointments No visits were found meeting these conditions. Showing future appointments within next 90 days and meeting all other requirements documented in this encounter Plan of Treatment Upcoming Encounters Date Type Department Care Team (Late st Contact Info) Description 05/17/2024 2:45 PM BOWL ATTENDANT Office Visit [facility] - Endocrinology - [place] #[address] [place] [phone] Annel Rod MD #2 [facility] [address] [place] [address] documented as of this encounter Visit Diagnoses Not on filedocumented in this encounter Additional Health Concerns Assessment Noted Time PHQ-9 Depression Total Score: 0 07/21/19 21 3:00 PM CDT documented as of this encounter Care Teams Collections Director Relationship Specialty Start Date End Date Justen Gale MD #2 [facility] [address] [place] [address] PCP - General Family Medicine 10/17/17 David Roberts APRN, NETTA #2 [place] [address] Nurse Practitioner Advanced Practice Nurse 01/31/22 Annel Rod MD #2 [facility] [address] [place] [address] Consulting Physician Endocrinology 07/01/22 documented as of this encounter
--- OUTSIDE RECORDS SUMMARY | 2024-04-26 02:57 | XMS_ITS | Encounter Summary ---
Author Organization [facility] Address [address] [place] [address] Phone Care Team Providers Care Client Account Assistant Name Role Phone Justen Gale MD Primary Care Provider Encounter Details Date Type Department Care Team (Late st Contact Info) Description 01/26/2022 Telephone [facility] #2 [place] [address] Justen Gale MD #[address] [address] Social History Tobacco Use Types Packs/Day Years Used Date Smoking Tobacco: Never Smokeless Tobacco: Never Alcohol Use Standard Drinks/Week Comments No 0 (1 standard drink = 0.6 oz pur e alcohol) PHQ-2 Answer Date Recorded Total Score - Questions 1-9 0 05/0 12/2021 Sexually Active Control Partners Comments Never Comments [...] suspected to have Coronavirus/COVID-19? No / Unsure 01/03/2022 4:02 PM CDT documented as of this encounter Miscellaneous Notes * Telephone Encounter - Stacy Huang RN - 01/26/2022 12:03 PM CDT Received fax asking for copy of referral. Referral printed and faxed to documented in this encounter Plan of Treatment Upcoming Encounters Date Type Department Care Team (Late st Contact Info) Description 05/17/2024 2:45 PM MANAGER APPLE Office Visit [facility] - Endocrinology - [place] #2 [place] [phone] Annel Rod MD #2 [facility] [address] [place] [address] documented as of this encounter Visit Diagnoses Not on filedocumented in this encounter Additional Health Concerns Assessment Noted Time PHQ-9 Depression Total Score: 0 07/21/19 21 3:00 PM CDT documented as of this encounter Care Teams Client Account Assistant Relationship Specialty Start Date End Date Justen Gale MD #2 [facility] [address] [place] [address] PCP - General Family Medicine 10/17/17 documented as of this encounter
--- OUTSIDE RECORDS SUMMARY | 2024-04-26 02:57 | XMS_ITS | Encounter Summary ---
Author Organization [facility] Address [address] [place] [address] Phone Care Team Providers Care Financial Agent Name Role Phone Justen Gale MD Primary Care Provider David Roberts APRN, DUPLEX TRIMMER Unavailable [phone] Reason for Visit * Reason Onset Date Comments Allergic Reaction 03/08/2022 Encounter Details Date Type Department Care Team (Late st Contact Info) Description 03/08/2022 Telephone [facility] [address] [place] [address] Justen Gale MD #[address] [address] Allergic Reaction Social History Tobacco Use Types Packs/Day [...] suspected to have Coronavirus/COVID-19? No / Unsure 03/03/2022 9:24 AM FIELD SERVICE POULTRY TECHNICIAN documented as of this encounter Miscellaneous Notes * Telephone Encounter - Alejandra Garza, RN - 03/08/2022 11:38 AM CST Patient calling States on antibiotic For uti taking benadryl with antibiotic States worsening shortness of breath States is taking her to Emergency Department Currently Did not triage any further Routed to primary care provider For follow up D SERVICE POULTRY TECHNICIAN documented in this encounter Plan of Treatment Upcoming Encounters Date Type Department Care Team (Late st Contact Info) Description 05/17/2024 2:45 PM FIELD SERVICE POULTRY TECHNICIAN Office Visit [facility] - Endocrinology [facility] #2 [place] [address] Anenl Rod MD #2 [facility] [address] [place] [address] documented as of this encounter Visit Diagnoses Not on filedocumented in this encounter Additional Health Concerns Assessment Noted Time PHQ-9 Depression Total Score: 0 07/21/19 21 3:00 PM CDT documented as of this encounter Care Teams Financial Agent Relationship Specialty Start Date End Date Justen Gale MD #2 [facility] [address] [place] [address] PCP - General Family Medicine 10/17/17 David Roberts, FOOT WORKER, DUPLEX TRIMMER #2 [place] [address] Nurse Practitioner Advanced Practice Nurse 01/31/22 documented as of this encounter
--- OUTSIDE RECORDS SUMMARY | 2024-04-26 02:57 | XMS_ITS | Encounter Summary ---
Author Organization [facility] Address [address] [place] [address] Phone Care Team Providers Care Regional Engagement Consultant Name Role Phone Justen Gale MD Primary Care Provider [phone] David Roberts APRN, NUCLEAR UNIT OPERATOR Unavailable [phone] Reason for Visit * Reason Onset Date Comments Rash 04/24/2022 Leg Swelling 04/24/2022 Encounter Details Date Type Department Care Team (Late st Contact Info) Description 04/24/2022 [facility] [address] [place] [phone] Justen Gale MD #[address] [address] Rash; Leg Swelling Social History Tobacco Use Types Packs/Day Years Used Date Smoking Tobacco: Never Smokeless Tobacco: Never Alcohol Use Standard Drinks/Week Comments No 0 (1 standard drink = 0.6 oz pur e alcohol) PHQ-2 Answer Date Recorded Total Score - Questions 1-9 0 /0 12/2021 Sexually Active Control Partners Comments Never [...] suspected to have Coronavirus/COVID-19? No / Unsure 04/22/2022 9:06 AM SITE SURVEYOR documented as of this encounter Miscellaneous Notes * Telephone Encounter - Johanna Almonte RN - 04/24/2022 10:58 PM SITE SURVEYOR SITUATION: Leg swelling/Rash BACKGROUND: Patient calling after hours to ask about a rash and swelling to her calf. She reports she has a history of blood clots and takes a blood thinner (Xarelto 20 mg daily) but was off blood thinners for 6 days (for a recent procedure) up until restarting it 2 days ago; her left leg is mildly swollen/puffy and tight with rash to the inside of calf,mildly itchy. ASSESSMENT: Symptom Description / Location: first noticed 2 days ago but did not look at leg until last night and noticed a rash to inner calf of left leg. Pollock down calf, puffy/mildly swollen but not large amount of swelling, itches a little bit but not constant and feels tight; no pain when touches it but sore when she lays down ; red in some areas and other areas are darker or look brown, not dot like in appearance, more of a mass of discoloration ; can walk okay ; denies chest pain or shortness of breath Pain (0-10):leg is painful, 6-7/10 pain when she lays down Temp: denies fever Treatment / Response: her chronic pain medications help the pain RECOMMENDATION: Will go to the ED in the next 4 hours. Allergies and medications not fully reviewed during this call due to urgent disposition and just reviewed 04/22/22. See care advice and disposition for Guideline First positive answer recorded, all responses to prior questions were negative. If symptoms increase, change or if new symptoms develop, call your HCP or call back. Recommendations were based on caller information and is not a diagnosis. Verified and reviewed all triage information with caller. Reason for Disposition ??? [1] Thigh, calf, or ankle swelling AND [2] only 1 side Protocols used: LEG SWELLING AND EDEMA-A-AH SURVEYOR documented in this encounter Plan of Treatment Upcoming Encounters Date Type Department Care Team (Late st Contact Info) Description 05/17/2024 2:45 PM SITE SURVEYOR Office Visit [facility] - Endocrinology [facility] #[address] [place] [address] [facility]el [facility] [address] [place] [address] documented as of this encounter Visit Diagnoses Not on filedocumented in this encounter Additional Health Concerns Assessment Noted Time PHQ-9 Depression Total Score: 0 07/21/19 21 3:00 PM CDT documented as of this encounter Care Teams Regional Engagement Consultant Relationship Specialty Start Date End Date Justen Gale MD #[address] [address] [address] PCP - General Family Medicine 10/17/17 David Roberts, PANEL WIRER, NUCLEAR UNIT OPERATOR #2 [place] [address] Nurse Practitioner Advanced Practice Nurse 01/31/22 documented as of this encounter
--- OUTSIDE RECORDS SUMMARY | 2024-04-26 02:57 | XMS_ITS | Encounter Summary ---
Author Organization [facility] Address [address] [place] [address] Phone Care Team Providers Care Space Sciences Director Name Role Phone Justen Gale MD Primary Care Provider [phone] Encounter Details Date Type Department Care Team (Late st Contact Info) Description 01/07/2022 Telephone [facility] #2 [place] [address] Lopez Neil MD #[address] [address] Social History Tobacco Use Types [...] encounter Miscellaneous Notes * Telephone Encounter - Lopez Neil MD - 01/07/2022 9:26 AM CDT Placed rx for bactrim based on culture data. documented in this encounter Plan of Treatment Upcoming Encounters Date Type Department Care Team (Late st Contact Info) Description 05/17/2024 2:45 PM LICENSED AUDIOLOGIST Office Visit [facility] - Endocrinology - [place] #2 [place] [address] Annel Rod MD #2 [facility] [address] [place] [address] documented as of this encounter Visit Diagnoses Not on filedocumented in this encounter Additional Health Concerns Assessment Noted Time PHQ-9 Depression Total Score: 0 07/21/19 21 3:00 PM CDT documented as of this encounter Care Teams Space Sciences Director Relationship Specialty Start Date End Date Justen Gale MD #2 [facility] [address] [place] [address] PCP - General Family Medicine 10/17/17 documented as of this encounter
--- OUTSIDE RECORDS SUMMARY | 2024-04-26 02:57 | XMS_ITS | Encounter Summary ---
Author Organization [facility] [employer] Care Team Providers Care Asphalt Tamper Name Role Phone Justen Gale MD Primary Care Provider [phone] David Roberts APRN, ENGINE DISPATCHER Unavailable [phone] Encounter Details Date Type Department Care Team (Latest Contact Info) Description 03/03/2022 Travel Social History Tobacco Use Types Packs/Day [...] Coronavirus/COVID-19? No / Unsure 03/03/2022 9:24 AM BARN BOSS documented as of this encounter Plan of Treatment Upcoming Encounters Date Type Department Care Team (Late st Contact Info) Description 05/17/2024 2:45 PM BARN BOSS [facility] Visit [facility] - [place] #[address] [place] [phone] Annel Rod MD #2 [facility] [address] [place] [address] documented as of this encounter Visit Diagnoses Not on filedocumented in this encounter Additional Health Concerns Assessment Noted Time PHQ-9 Depression Total Score: 0 07/21/19 21 3:00 PM CDT documented as of this encounter Care Teams Asphalt Tamper Relationship Specialty Start Date End Date Justen Gale MD #2 [facility] [address] [place] [address] PCP - General Family Medicine 10/17/17 David Roberts APRN, ENGINE DISPATCHER #2 [place] [address] Nurse Practitioner Advanced Practice Nurse 01/31/22 documented as of this encounter
--- OUTSIDE RECORDS SUMMARY | 2024-04-26 02:57 | XMS_ITS | Encounter Summary ---
Author Organization [facility] Address [address] [address] Phone Care Team Providers Care Certified Veterinary Technician Name Role Phone Justen Gale MD Primary Care Provider David Roberts APRN, CRIMINAL JUSTICE INSTRUCTOR Unavailable [phone] Reason for Visit * Reason Onset Date Comments Medication Reaction 04/22/2022 Encounter Details Date Type Department Care Team (Late st Contact Info) Description 04/22/2022 Nurse Triage [facility] [address] [place] [address] Justen Gale MD #[address] [address] Medication Reaction Social History Tobacco Use Types [...] Coronavirus/COVID-19? No / Unsure 04/22/2022 9:06 AM COUNTER SUPPLY WORKER documented as of this encounter Miscellaneous Notes * Telephone Encounter - Joan Carlson RN - 04/23/2022 12:[address] Hunt via [facility] at [phone]. Dr Hunt returned call. states that patient can take some Benadryl but it may just make her drowsy and not help with hercurrent symptoms. states that her symptoms are most likely from the lidocaine injection and it can take around 24 hours to improve. Tried to contact patient. Unable to reach patient x3 attempts. Did not leave patient a message due to unidentified voicemail. TER SUPPLY WORKER * Telephone Encounter - Odalis Moss RN - 04/22/2022 10:57 PM COUNTER SUPPLY WORKER SITUATION: Allergic reaction BACKGROUND: Was given a lidocaine injection for a thyroid biopsy 03/23/22 ASSESSMENT: Symptom Description / Location: Started 45 mins after surgery Nausea, fidgety, anxious Feels like prior reactions to other medications she has had in the past Denies swelling, swallowing, trouble breathing, rash Denies vomiting Pain (0-10): denies Temp: denies Treatment / Response: denies LMP / / : No LMP recorded. Patient is postmenopausal. RECOMMENDATION: Patient asking if she can take benadryl for possible reaction. Paged poc Dr Hunt See care advice and disposition for Guideline First positive answer recorded, all responses to prior questions were negative. If symptoms increase, change or if new symptoms develop, call your HCP or call back. Recommendations were based on caller information and is not a diagnosis. Verified and reviewed all triage information with caller. Reason for Disposition ??? [1] Caller has URGENT question AND [2] triager unable to answer question Protocols used: POST-OP SYMPTOMS AND [id number] TER SUPPLY WORKER documented in this encounter Plan of Treatment Upcoming Encounters Date Type Department Care Team (Larry Contact Info) Description 05/17/2024 2:45 PM COUNTER SUPPLY WORKER Office Visit [facility] - Endocrinology - [place] #[address] [place] [address] Annel Rod MD #2 [facility] [address] [place] [address] documented as of this encounter Visit Diagnoses Not on filedocumented in this encounter Additional Health Concerns Assessment Noted Time PHQ-9 Depression Total Score: 0 07/21/19 21 3:00 PM CDT documented as of this encounter Care Teams Certified Veterinary Technician Relationship Specialty Start Date End Date Justen Gale MD #2 [place] [facility] [address] [place] [address] PCP - General Family Medicine 10/17/17 David Roberts APRN, CRIMINAL JUSTICE INSTRUCTOR #2 [place] [address] Nurse Practitioner Advanced Practice Nurse 01/31/22 documented as of this encounter
--- OUTSIDE RECORDS SUMMARY | 2024-04-26 02:57 | XMS_ITS | Encounter Summary ---
Author Organization [facility] Address [address] [place] [address] Phone Care Team Providers Care Machine Preservative Filler Name Role Phone Justen Gale MD Primary Care Provider [phone] David Roberts APRN, EQUITY RESEARCH ANALYST Unavailable [phone] Reason for Visit * Auth/Cert (Routine) Specialty Diagnoses / Procedures Referred By Elyssa benavides Referred To Contact Diagnoses THYROID NODULE Procedures PRE / POST CARE FOR PROCEDURAL AREA Referral ID Status Reason Start Date Expiration Date Visits Re quested Visits Authorized [id number] 1 1 Encounter Details Date Type Department Care Team (Late st Contact Info) Description 04/22/2022 10:00 AM FLOW WORKER - 04/22/2022 10:30 AM FLOW WORKER Surgery [facility] Periop [address] [place] [address] Provider, Not On File [place] PRE / POST CARE FOR PROCEDURAL AREA / THYROID BIOPSY Surgery Details Date/Time Status Location OR Service Patient Class Case Class Case Type Trauma Case? 04/22/2022 10:00 AM Posted [facility] INVASIVE IMAGING [facility] IR 1 [facility] Ambulatory Surgery Panel 1 Procedure [facility]RB Anes Op Region Wound Class Comments PRE / POST CARE FOR PROCEDUR AL AREA / THYROID BIOPSY N/A Local Surgeon Surgeon Role Service Panel Provider, [...] Coronavirus/COVID-19? No / Unsure 04/22/2022 9:06 AM FLOW WORKER documented as of this encounter Last Filed Vital Signs Vital Sign Reading Time Taken Comments Blood Pressure 148/88 04/22/2022 9:22 AM FLOW WORKER Pulse 80 04/22/2022 9:22 AM FLOW WORKER Temperature 36.3 ??C (97.3 ??F) 04/22/2022 9:22 AM CS T Respiratory Rate 16 04/22/2022 9:22 AM FLOW WORKER Oxygen Saturation 98% 04/22/2022 9:22 AM FLOW WORKER Inhaled Oxygen Concentration - - Weight 127 kg (280 lb) 04/22/2022 9:22 AM FLOW WORKER Height 154.9 cm (5' 1 ) 04/22/2022 9:22 AM FLOW WORKER Body Mass Index 52.91 04/22/2022 9:22 AM FLOW WORKER documented in this encounter Medications at Time of Discharge albuterol 108 (90 Base) MCG/ACT Aerosol Solution take 2 Puffs by inhalation. 04/19/2021 Blood Glucose Monitoring Suppl DeviceIndications :Type 2 diabetes mellitus with complication, without long-term current use of insulin ([facility]) Diagnosis: Diabetes Type 2 Blood testing frequency: 4 times a day 1 Each 11/21/2017 diphenhydrAMINE (BENADRYL) 25 MG Capsule Take 25 mg by mouth every 6 hours as needed. exemestane (AROMASIN) 25 MG Tablet Take 25 mg by mouth daily. Glucose Blood (ONE TOUCH ULTRA TEST) Strip Test four times daily. 400 Strip 3 02/11/2020 HYDROcodone-aceta minophen (NORCO) 7.5-325 MG Tablet 0 02/17/2019 [facility]. Devices MiscIndications:O SA (obstructive sleep apnea) Supply and instructions: 1 Each 09/09/2020 naloxone HCl (Narcan) 4 MG/0.1ML Liquid as needed 05/13/2021 OneTouch Delica Lancets 33G [facility] 1 Lancet by Does not apply route 4 times daily. 400 Lancet 3 03/09/2021 rivaroxaban (XARELTO) 20 MG Tablet Take 20 mg by mouth daily. amitriptyline (ELAVIL) 25 MG Tablet nightly. 02/18/2019 4 Insulin Lispro, 1 Unit Dial, (HumaLOG KwikPen) 100 UNIT/ML Solution Pen-injector ADMINISTER 22 UNITS BEFORE EACH MEAL. ISF OF 1:15 IF >150 MG/DL, MAX DAILY DOSE OF 100 UNITS 30 mL 1 12/07/2021 3 Insulin Pen Needle (B-D ULTRAFINE III SHORT PEN) 31G X 8 MM [facility] USE 6 TIMES DAILY DIRECTED 300 Pen Needle 1 06/23/2021 3 Lantus SoloStar 100 UNIT/ML Solution Pen-injector ADMINISTER 50 UNITS UNDER THE SKIN EVERY MORNING 45 mL 1 12/07/2021 3 nitrofurantoin, macrocrystal-mono hydrate, (MACROBID) 100 MG Capsule Take 100 mg by mouth 2 times daily. 3 nystatin 135086 UNIT/GM Powder 11/09/2021 4 ondansetron (Zofran) 4 MG TabletIndications :Nausea and vomiting, unspecified vomiting type Take 1 Tablet by mouth every 8 hours as needed for Nausea - 1st line. 15 Tablet 01/03/2022 3 oxybutynin (DITROPAN) 5 MG Tablet TAKE 1 TABLET BY MOUTH TWICE DAILY 180 Tablet 3 01/20/2022 3 rOPINIROLE (REQUIP) 5 MG Tablet TAKE 1 TABLET BY MOUTH EVERY NIGHT 90 Tablet 2 12/03/2021 3 documented as of this encounter Miscellaneous Notes * Plan of Care - Christin Aldridge RN - 04/22/2022 11:00 AM CST Problem: Adult Inpatient Plan of Care Goal: Plan of Care Review Outcome: Outcome Achieved Flowsheets (Taken 04/22/2022937 by Lexi Bennett RN) Plan of Care Reviewed With: patient Progress: progress toward functional goals as expected Today's Goal: Patient hopes to go home without severe pain. Does the patient need assistance with discharge and/or transitioning to the next level of care?: No, no needs anticipated Goal: Patient-Specific Goal (Individualized) Outcome: Outcome Achieved Flowsheets (Taken 04/22/2022937 by Lexi Bennett, RN) Today's Goal: Patient hopes to go home without severe pain. Goal: Absence of Hospital-Acquired Illness or Injury Outcome: Outcome Achieved Intervention: Prevent and Manage VTE (Venous Thromboembolism) Risk Flowsheets (Taken 04/22/2022937 by Lexi Bennett, RN) VTE Prevention/Management: ambulation encouraged Goal: Optimal Comfort and Wellbeing Outcome: Outcome Achieved Intervention: Provide Person-Centered Care Flowsheets (Taken 04/22/2022937 by Lexi Bennett, RN) Trust Relationship/Rapport: care explained empathic listening provided questions answered questions encouraged emotional support provided Goal: Readiness for Transition of Care Outcome: Outcome Achieved WORKER * Plan of Care - Lexi Bennett RN - 04/22/2022 9:39 AM CST Patient here for thyroid biopsy. Patient anxious about procedure but pleased to be getting it done.Patient ready for procedure. WORKER documented in this encounter Plan of Treatment Upcoming Encounters Date Type Department Care Team (Late st Contact Info) Description 05/17/2024 2:45 PM FLOW WORKER Office Visit [facility] - Endocr[facility]ology - [place] [address] [place] [address] Annel Rod MD [address] [address] documented as of this encounter Procedures Procedure Name Priority Date/Time Associated Diagnosis Comments PRE / POST CARE FOR PROCEDURAL AREA 04/22/2022 10:00 AM FLOW WORKER THYROID NODULE documented in this encounter Visit Diagnoses Not on filedocumented in this encounter Additional Health Concerns Assessment Noted Time PHQ-9 Depression Total Score: 0 07/21/19 21 3:00 PM CDT documented as of this encounter Care Teams Machine Preservative Filler Relationship Specialty Start Date End Date Justen Gale MD #[address] [address] PCP - General Family Medicine 10/17/17 David Roberts APRN, NETTA [address] [place] [address] Nurse Practitioner Advanced Practice Nurse 01/31/22 documented as of this encounter
--- OUTSIDE RECORDS SUMMARY | 2024-04-26 02:57 | XMS_ITS | Encounter Summary ---
Author Organization [facility] Address [address] [place] [address] Phone Care Team Providers Care Bucket Operator Name Role Phone Justen Gale MD Primary Care Provider [phone] David Roberts APRN, PAROLE DIRECTOR Unavailable [phone] Reason for Referral * Consult, Test & Initiate Treatment (Routine) - Closed Specialty Diagnoses / Procedures Referred By Elyssa benavides Referred To Contact Diagnoses Malignant neoplasm of upper-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, unspecified estrogen receptor status (HCC) Justen Gale MD [address] [address] Phone: tel: fax: Referral ID Status Reason Start Date Expiration Date Visits Re quested Visits Authorized [id number] Closed 02/21/2022 12 12 Scheduling Instructions Karly is being referred to [facility] and Khris Arthur or other specialist in patient's insurance network for [id number] See below for Karly's current medications, allergies and problem list. CURRENT MEDS: Current Outpatient Medications: acetaminophen (TYLENOL) 500 MG Tablet, Take 500 mg by mouth. (Patient not taking: No sig reported), Disp: , Rfl: amitriptyline (ELAVIL) 25 MG Tablet, nightly., Disp: , Rfl: Blood Glucose Monitoring Suppl Device, Diagnosis: Diabetes Type 2 Blood testing frequency: 4 times a day, Disp: 1 Each, Rfl: 0 enoxaparin (LOVENOX) 40 MG/0.4ML Solution Prefilled Syringe, 40 mg by Subcutaneous route. (Patient not taking: No sig reported), Disp: , Rfl: ertapenem (INVanz) 1 g Recon Soln, , Disp: , Rfl: exemestane (AROMASIN) 25 MG Tablet, Take 25 mg by mouth daily., Disp: , Rfl: Glucose Blood (ONE TOUCH ULTRA TEST) Strip, Test four times daily., Disp: 400 Strip, Rfl: 3 HYDROcodone-acetaminophen (NORCO) 7.5-325 MG Tablet, TK 1 T PO QID PRN. DO NOT FILL UNTIL 02/13/2019, Disp: , Rfl: 0 Insulin Lispro, 1 Unit Dial, (HumaLOG KwikPen) 100 UNIT/ML Solution Pen- injector, ADMINISTER 22 UNITS BEFORE EACH MEAL. ISF OF 1:15 IF >150 MG/DL, MAX DAILY DOSE OF 100 UNITS, Disp: 30 mL, Rfl: 1 Insulin Pen Needle (B-D ULTRAFINE III SHORT PEN) 31G X 8 MM Misc, USE 6 TIMES DAILY DIRECTED, Disp: 300 Pen Needle, Rfl: 1 Lantus SoloStar 100 UNIT/ML Solution Pen-injector, ADMINISTER 50 UNITS UNDER THE SKIN EVERY MORNING, Disp: 45 mL, Rfl: 1 Misc. Devices Misc, Supply and instructions:, Disp: 1 Each, Rfl: 0 Misc. Devices Misc, Supply and instructions: (Patient not taking: Reported on 01/28/2022), Disp: 1 Each, Rfl: 0 naloxone HCl (Narcan) 4 MG/0.1ML Liquid, as needed, Disp: , Rfl: nystatin [id number] UNIT/GM Powder, APPLY TO THE AFFECTED AREA THREE TIMES DAILY FOR 14 DAYS, Disp: , Rfl: ondansetron (Zofran) 4 MG Tablet, Take 1 Tablet by mouth every 8 hours as needed for Nausea - 1st line. (Patient not taking: Reported on 01/28/2022), Disp: 15 Tablet, Rfl: 0 OneTouch Delica Lancets 33G Misc, 1 Lancet by Does not apply route 4 times daily., Disp: 400 Lancet, Rfl: 3 oxybutynin (DITROPAN) 5 MG Tablet, TAKE 1 TABLET BY MOUTH TWICE DAILY, Disp: 180 Tablet, Rfl: 3 oxyCODONE 10 MG Tablet, , Disp: , Rfl: pantoprazole (PROTONIX) 40 MG Tablet Delayed Response, Take 1 Tablet by mouth daily. (Patient not taking: No sig reported), Disp: 90 Tablet, Rfl: 1 rivaroxaban (XARELTO) 20 MG Tablet, Take 20 mg by mouth daily., Disp: , Rfl: rOPINIROLE (REQUIP) 5 MG Tablet, TAKE 1 TABLET BY MOUTH EVERY NIGHT, Disp: 90 Tablet, Rfl: 2 tiZANidine (ZANAFLEX) 4 MG Tablet, , Disp: , Rfl: No current facility-administered medications [...] Comments) -- Macrobid [Nitrofurantoin] -- Itching -- Lisinopril -- Swelling -- Medical Adhesive Remover -- Rash -- Oxycodone -- Unknown -- Reglan [Metoclopramide Hcl] -- Unknown -- Reslizumab -- Unknown -- Ketorolac -- Itching -- Pregabalin -- Other (see Comments) -- Trazodone -- Other (see Comments) -- Shaky, restlessness, itching, throat swelling PROBLEM LIST: Patient Active Problem List: Physical exam, annual High blood pressure Type 2 diabetes mellitus [...] Visit * Reason Onset Date Comments Referral 02/21/2022 Encounter Details Date Type Department Care Team (Late Contact Info) Description 02/21/2022 Telephone [facility] [place] [address]2 [place] [address] Justen Gale MD #[address] [address] Referral Social History Tobacco Use Types Packs/Day [...] Telephone Encounter - Stacy Huang RN - 02/21/2022 2:45 PM CDT Received a call from Angelita with [facility] asking for a referral to Hematology /Oncology. Referral pended documented in this encounter Plan of Treatment Upcoming Encounters Date Type Department Care Team ([facility] Contact Info) Description 05/17/2024 2:45 PM RUBBER THREAD SPOOLER Office Visit [facility] - End[facility] - [place] [address] [place] [address] Annel Rod MD [address] [address] Scheduled Referrals Name Type Priority Associated Diagnoses Orde r Schedule EXTERNAL HEMATOLOGY ONCOLOGY REFERRAL Outpatient Referral Routine Malignant neoplasm of upper-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, unspecified estrogen receptor status (HCC) Expected: 02/20/2023, Expires: 02/21/2024 documented as of this encounter Visit Diagnoses Diagnosis Malignant neoplasm of upper-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, unspecified estrogen receptor status (HCC)- Primary documented in this encounter Additional Health Concerns Assessment Noted Time PHQ-9 Depression Total Score: 0 07/21/19 21 3:00 PM CDT documented as of this encounter Care Teams Bucket Operator Relationship Specialty Start Date End Date Just[facility] G[facility] MD [facility] [address] [address] PCP - General Family Medicine 10/17/17 David Roberts APRN, PAROLE DIRECTOR [address] [facility] [place] [address] Nurse Practitioner Advanced Practice Nurse 01/31/22 documented as of this encounter
--- OUTSIDE RECORDS SUMMARY | 2024-04-26 02:57 | XMS_ITS | Encounter Summary ---
Author Organization [facility] Address [address] [facility] [place] [address] Phone Care Team Providers Care Leasing Property Manager Name Role Phone Justen Gale MD Primary Care Provider [phone] Reason for Visit * Reason Onset Date Comments Dizziness 01/28/2022 Encounter Details Date Type Department Care Team (Late st Contact Info) Description 01/28/2022 Nurse Triage [facility] [address] [place] [address] Justen Gale MD #[address] [address] Dizziness Social History Tobacco Use Types Packs/Day [...] Miscellaneous Notes * Telephone Encounter - Marlys Lane RN - 01/28/2022 3:13 PM CDT SITUATION: Dizziness BACKGROUND: Symptoms started yesterday, 01/27. States that she had dizziness about 5-6 weeks ago andshe saw ENT. States that ENT did not do anything about the dizziness. States that dizziness went away for awhile, but has started again and is worse this time. Patient states that she had covid about 2-3 weeks ago, but did not have the dizziness or shortness of breath then. ASSESSMENT: Symptom Description / Location: Patient states having intermittent, positional dizziness. States that it feels like the room is rocking . States that she is nauseous and has a decreased appetite. States that she just doesn't feel good. States that she is having intermittent, mild shortness of breath. Patient talking in full sentences. Denies any other symptoms at this time. Pain (0-10): denies Temp: denies fever Treatment / Response: none RECOMMENDATION: See care advice and disposition for Guideline First positive answer recorded, all responses to prior questions were negative. If symptoms increase, change or if new symptoms develop, call your HCP or call back. Recommendations were based on caller information and is not a diagnosis. Verified and reviewed all triage information with caller. Reason for Disposition ??? Spinning or tilting sensation (vertigo) present now and one or more stroke risk factors (i.e., hypertension, diabetes mellitus, prior stroke/TIA, heart attack, age over 60) (Exception: prior physician evaluation for this AND no different/worse than usual) Protocols used: [id number] Advised patient to go to ED for evaluation. She voices understanding and is agreeable. Assistive services verified. Allergies, medications, and pharmacy verified. documented in this encounter Plan of Treatment Upcoming Encounters Date Type Department Care Team (Late st Contact Info) Description 05/17/2024 2:45 PM SHOT COAT TENDER Office Visit [facility] - Endocrinology - [place] [address] [place] [address] Annel Rod MD #2 [facility] [address] [place] [address] documented as of this encounter Visit Diagnoses Not on filedocumented in this encounter Additional Health Concerns Assessment Noted Time PHQ-9 Depression Total Score: 0 07/21/19 21 3:00 PM CDT documented as of this encounter Care Teams Leasing Property Manager Relationship Specialty Start Date End Date Justen Gale MD #2 [facility] [address] [place] [address] PCP - General Family Medicine 10/17/17 documented as of this encounter
--- OUTSIDE RECORDS SUMMARY | 2024-04-26 02:57 | XMS_ITS | Encounter Summary ---
Author Organization [facility] Address [address] [place] [address] Phone Care Team Providers Care Smeller Name Role Phone Justen Gale MD Primary Care Provider [phone] aDvid Roberts APRN, NEWSPAPER STUFFER Unavailable [phone] Reason for Referral * Radiology Services (Routine) - Closed Specialty Diagnoses / Procedures Referred By Elyssa benavides Referred To Contact Radiology Diagnoses Thyroid nodule Procedures US THYROID Justen Gale MD #[address] [address] Phone: tel: fax: Referral ID Status Reason Start Date Expiration Date Visits Re quested Visits Authorized [id number] Closed 03/14/2022 1 1 ER PRINT TENDER Reason for Visit * Reason Onset Date Comments Results 03/14/2022 Encounter Details Date Type Department Care Team (Late st Contact Info) Description 03/14/2022 Telephone [facility] [address] [place] [phone] Justen Gale MD #2 [facility] [place] [place] [address] Results Social History Tobacco Use Types Packs/Day [...] Coronavirus/COVID-19? No / Unsure 03/03/2022 9:24 AM ROLLER PRINT TENDER documented as of this encounter Miscellaneous Notes * Telephone Encounter - Stacy Huang RN - 03/14/2022 2:03 PM CST Called and let patient know, she stated that she understood. ER PRINT TENDER * Telephone Encounter - Justen Gale MD - 03/14/2022 12:30 PM CST Please call. Ct shows thyroid mass. I will order an ultrasound of your thyroid to get a better lookat it ER PRINT TENDER documented in this encounter Plan of Treatment Upcoming Encounters Date Type Department Care Team (Late st Contact Info) Description 05/17/2024 2:45 PM ROLLER PRINT TENDER Office Visit [facility] [address] [place] [address] Annel Rod MD #[address] [phone] documented as of this encounter Procedures Procedure Name Priority Date/Time Associated Diagnosis Comments US THYROID Routine 03/21/2022 12:00 AM ROLLER PRINT TENDER Thyroid nodule documented in this encounter Results * US THYROID (03/21/2022 12:00 AM ROLLER PRINT TENDER) Anatomical Region Laterality Modality BODY N/A Other 03/21/2022 us Justen Gale MD [facility] ORDERABLES Final Resul t documented in this encounter Visit Diagnoses Diagnosis Thyroid nodule- Primary Nontoxic uninodular goiter documented in this encounter Additional Health Concerns Assessment Noted Time PHQ-9 Depression Total Score: 0 07/21/19 21 3:00 PM CDT documented as of this encounter Care Teams Smeller Relationship Specialty Start Date End Date Justen Gale MD #[address] [address] PCP - General Family Medicine 10/17/17 David Roberts, SEED AND FERTILIZER SPECIALIST, NEWSPAPER STUFFER #2 [place] [address] Nurse Practitioner Advanced Practice Nurse 01/31/22 documented as of this encounter
--- OUTSIDE RECORDS SUMMARY | 2024-04-26 02:57 | XMS_ITS | Encounter Summary ---
Author Organization [facility] Address [address] [place] [address] Phone Care Team Providers Care Pourer Crane Ladle Name Role Phone Justen Gale MD Primary Care Provider [phone] Reason for Visit * Reason Comments Medication Refill Encounter Details Date Type Department Care Team (Late st Contact Info) Description 01/20/2022 Refill [facility] [place] [address] Justen Gale MD #[address] [address] Medication Refill Social History Tobacco Use Types [...] Telephone Encounter - Marlys Anderson RN - 01/20/2022 12:22 PM CDT Medication(s) refilled and signed [facility] Medication Refill Standing Order for Pediatricand Adult Patients. Requested Prescriptions Pending Prescriptions Disp Refills ??? oxybutynin (DITROPAN) 5 MG Tablet [Pharmacy Med Name: OXYBUTYNIN 5MG TABLETS] 180 Tablet 3 Sig: TAKE 1 TABLET BY MOUTH TWICE DAILY Urinary Anticholinergics Protocol Passed - 01/20/2022 11:42 AM Passed - Visit with relevant provider in past 12 months or upcoming 90 days Recent Visits Date Type Provider Dept 01/03/22 Office Visit Dannielle Berg PAC [facility] 12/07/21 Office Visit Pili Elkins APRN, NETTA [facility] 11/09/21 Office Visit Pili Elkins APRN, ENGRAVER COPPERPLATE [facility] 10/08/21 Office Visit Angelito Alegria APRN, [facility] 08/30/21 Office Visit Justen Gale MD [facility] Showing recent visits within past 365 days and meeting all other requirements Future Appointments No visits were found meeting these conditions. Showing future appointments within next 90 days and meeting all other requirements Passed - GFR greater than or equal to 30 in past 12 months GFR, EST. NONAFRICAN Date Value Ref Range Status 01/04/2022 >60 >=60 Final documented in this encounter Plan of Treatment Upcoming Encounters Date Type Department Care Team (Late st Contact Info) Description 05/17/2024 2:45 PM PHARMACIST AIDE Office Visit [facility] - Endocrinology - [place] [address] [place] [address] Annel Rod MD #[address] [phone] documented as of this encounter Visit Diagnoses Not on filedocumented in this encounter Additional Health Concerns Assessment Noted Time PHQ-9 Depression Total Score: 0 07/21/19 21 3:00 PM CDT documented as of this encounter Care Teams Pourer Crane Ladle Relationship Specialty Start Date End Date Justen Gale MD #2 [place] [address] PCP - General Family Medicine 10/17/17 documented as of this encounter
--- OUTSIDE RECORDS SUMMARY | 2024-04-26 02:57 | XMS_ITS | Encounter Summary ---
Author Organization [facility] Address [address] [place] [address] Phone Care Team Providers Care Compensation Business Partner Name Role Phone Justen Gale MD Primary Care Provider [phone] David Roberts APRN, POWER MARKETER Unavailable [phone] Reason for Visit * Reason Onset Date Comments Follow-up 03/21/2022 Encounter Details Date Type Department Care Team (Late st Contact Info) Description 03/21/2022 Telephone [facility] [address] [place] [address] Justen Gale MD #[address] [address] Follow-up Social History Tobacco Use Types Packs/Day [...] Coronavirus/COVID-19? No / Unsure 03/03/2022 9:24 AM SLOT ATTENDANT documented as of this encounter Miscellaneous Notes * Telephone Encounter - Nat Hernandez RN - 03/21/2022 10:09 AM SLOT ATTENDANT Informed Jimmie on prd notified of the response. ATTENDANT * Telephone Encounter - Kristine Jacobo - 03/21/2022 8:41 AM CST Images from the original note were not included. Justen Young MD You 32 minutes ago (8:08 AM) yes ATTENDANT * Telephone Encounter - Kristine Jacobo - 03/21/2022 8:02 AM CST SITUATION: Appointment Bryan ( + PRD) calling BACKGROUND: ASSESSMENT: Patient is at [facility] now so will not make appointment Tomorrow She is to have tests run today Should she have the thyroid US done at [facility] ? ATTENDANT ATTENDANT documented in this encounter Plan of Treatment Upcoming Encounters Date Type Department Care Team (Late st Contact Info) Description 05/17/2024 2:45 PM SLOT ATTENDANT Office Visit [facility] - [place] [address] [place] [phone] Annel Rod MD #[address] [address] documented as of this encounter Visit Diagnoses Not on filedocumented in this encounter Additional Health Concerns Assessment Noted Time PHQ-9 Depression Total Score: 0 07/21/19 21 3:00 PM CDT documented as of this encounter Care Teams Compensation Business Partner Relationship Specialty Start Date End Date Justen Gale MD #[address] [address] PCP - General Family Medicine 10/17/17 David Roberts APRN, POWER MARKETER #2 [facility] [place] [address] Nurse Practitioner Advanced Practice Nurse 01/31/22 documented as of this encounter
--- OUTSIDE RECORDS SUMMARY | 2024-04-26 02:57 | XMS_ITS | Encounter Summary ---
Author Organization [facility] Address [address] [place] [address] Phone Care Team Providers Care Plate Drying Machine Tender Name Role Phone Justen Gale MD Primary Care Provider [phone] David Roberts APRN, CHILD MONITOR Unavailable [phone] Reason for Referral * Consult, Test & Initiate Treatment (Less Than 4 Weeks) - Closed Specialty Diagnoses / Procedures Referred By Elyssa benavides Referred To Contact Diagnoses Multiple drug allergies Pili Elkins APRN, CHILD MONITOR #2 [facility] [address] [place] [address] Phone: tel: fax: Nader Alvarez MD #2 [facility] [address] [place] [address] Phone: tel: fax: Referral ID Status Reason Start Date Expiration Date Visits Re quested Visits Authorized [id number] Closed 03/03/2022 1 1 Scheduling Instructions Karly is being referred to other specialist in patient's insurance network for multiple drug allergy workup. See below for Karly's current medications, allergies [...] a day, Disp: 1 Each, Rfl: 0 diphenhydrAMINE (BENADRYL) 25 MG Capsule, Take 25 mg by mouth every 6 hours as needed., Disp: , Rfl: enoxaparin (LOVENOX) 40 MG/0.4ML Solution Prefilled Syringe, [...] Misc, Supply and instructions: (Patient not taking: No sig reported), Disp: 1 Each, Rfl: 0 naloxone HCl (Narcan) 4 MG/0.1ML Liquid, as needed, Disp: , Rfl: nitrofurantoin, macrocrystal-monohydrate, (MACROBID) 100 MG Capsule, Take 100 mg by mouth 2 times daily., Disp: , Rfl: nystatin [id number] UNIT/GM Powder, APPLY TO THE AFFECTED AREA THREE TIMES DAILY FOR 14 DAYS (Patient not taking: Reported on 03/01/2022), Disp: , Rfl: ondansetron (Zofran) 4 MG Tablet, Take 1 Tablet by mouth every 8 hours as needed for Nausea - 1st line. (Patient not taking: No sig reported), Disp: 15 Tablet, Rfl: 0 OneTouch Delica [...] -- Rash -- Lisinopril -- Swelling -- Medical Adhesive [...] to 59.9 in adult (HCC) Thyroid nodule E SEWER Reason for Visit * Reason Comments Post-Hospital Follow-up Patient is here for a hospital follow up for a UTI Encounter Details Date Type Department Care Team (Late st Contact Info) Description 03/03/2022 9:30 AM GLOVE SEWER Office Visit [facility] - Family [facility] #2 [place] [address] Pili Elkins APRN, NETTA #[address] [phone] Multiple drug allergies (Primary Dx); Recurrent UTI; Elevated BP without diagnosis of hypertension Discharge Disposition: Discharged to home or [...] Coronavirus/COVID-19? No / Unsure 03/03/2022 9:24 AM GLOVE SEWER documented as of this encounter Last Filed Vital Signs Vital Sign Reading Time Taken Comments Blood Pressure 138/84 03/03/2022 9:35 AM GLOVE SEWER Pulse 89 03/03/2022 9:35 AM GLOVE SEWER Temperature 36.4 ??C (97.6 ??F) 03/03/2022 9:35 AM CS T Respiratory Rate 16 03/03/2022 9:35 AM GLOVE SEWER Oxygen Saturation 98% 03/03/2022 9:35 AM GLOVE SEWER Inhaled Oxygen Concentration - - Weight 131.2 kg (289 lb 3.2 oz) 03/03/2022 9:35 AM GLOVE SEWER Height 154.9 cm (5' 1 ) 03/03/2022 9:35 AM GLOVE SEWER Body Mass Index 54.64 03/03/2022 9:35 AM GLOVE SEWER documented in this encounter Patient Instructions * Patient Instructions* Pili Elkins APRN, CHILD MONITOR - 03/03/2022 9:30 AM GLOVE SEWER Images from the original note were not included. How to Take Your Blood Pressure Blood pressure measures how strongly your blood is pressing against the ferrara of your arteries. Arteries are blood vessels that carry blood from your heart throughout your body. You can take your blood pressure at home with a machine. You may need to check your blood pressure at home: ?? To check if you have high blood pressure (hypertension). ?? To check your blood pressure over time. ?? To make sure your blood pressure medicine is working. Supplies needed: ?? Blood pressure machine, or monitor. ?? Dining room chair to sit in. ?? Table or desk. ?? Small notebook. ?? Pencil or pen. How to prepare Avoid these things for 30 minutes before checking your blood pressure: ?? Having drinks with caffeine in them, such as coffee or tea. ?? Drinking alcohol. ?? Eating. ?? Smoking. ?? Exercising. Do these things five minutes before checking your blood pressure: ?? Go to the bathroom and pee (urinate). ?? Sit in a dining chair. Do not sit on a soft couch or an armchair. ?? Be quiet. Do not talk. How to take your blood pressure Follow the instructions that came with your machine. If you have a digital blood pressure monitor, these may be the instructions: 1. Sit up straight. 2. Place your feet on the floor. Do not cross your ankles or legs. 3. Rest your left arm at the level of your heart. You may rest it on a table, desk, or chair. 4. Pull up your shirt sleeve. 5. Wrap the blood pressure cuff around the upper part of your left arm. The cuff should be 1 inch (2.5 cm) above your elbow. It is best to wrap the cuff around bare skin. 6. Fit the cuff snugly around your arm. You should be able to place only one finger between the cuff and your arm. 7. Place the cord so that it rests in the bend of your elbow. 8. Press the power button. 9. Sit quietly while the cuff fills with air and loses air. 10. Write down the numbers on the screen. 11. Wait 2-3 minutes and then repeat steps 1-10. What do the numbers mean? Two numbers make up your blood pressure. The first number is called systolic pressure. The second is called diastolic pressure. An example of a blood pressure reading is 120 over 80 (or 120/80). If you are an adult and do not have a medical condition, use this guide to find out if your blood pressure is normal: Normal ?? First number: below 120. ?? Second number: below 80. Elevated ?? First number: 120-129. ?? Second number: below 80. Hypertension stage 1 ?? First number: 130-139. ?? Second number: 80-89. Hypertension stage 2 ?? First number: 140 or above. ?? Second number: 90 or above. Your blood pressure is above normal even if only the first or only the second number is above normal. Follow these instructions at home: Medicines ?? Take [id number]-xeoobdy and prescription medicines only as told by your doctor. ?? Tell your doctor if your medicine is causing side effects. General instructions ?? Check your blood pressure as often as your doctor tells you to. ?? Check your blood pressure at the same time every day. ?? Take your monitor to your next doctor's appointment. Your doctor will: ? Make sure you are using it correctly. ? Make sure it is working right. ?? Understand what your blood pressure numbers should be. ?? Keep all follow-up visits as told by your doctor. This is important. General tips You will need a blood pressure machine, or monitor. Your doctor can suggest a monitor. You can buy one at a [employer] or online. When choosing one: ?? Choose one with an arm cuff. ?? Choose one that wraps around your upper arm. Only one finger should fit between your arm and thecuff. ?? Do not choose one that measures your blood pressure from your wrist or finger. Where to find more information [employer]: www.heart.org Contact a doctor if: ?? Your blood pressure keeps being high. ?? Your blood pressure is suddenly low. Get help right away if: ?? Your first blood pressure number is higher than 180. ?? Your second blood pressure number is higher than 120. Summary ?? Check your blood pressure at the same time every day. ?? Avoid caffeine, alcohol, smoking, and exercise for 30 minutes before checking your blood pressure. ?? Make sure you understand what your blood pressure numbers should be. This information is not intended to replace advice given to you by your health care provider. Make sure you discuss any questions you have with your health care provider. Document Revised: 02/17/2021 Document Reviewed: 04/03/2020 [employer] Patient Education ?? 2021 [employer] E SEWER documented in this encounter Progress Notes * Jane Hawkins - 03/03/2022 9:30 AM CST Karly Winston Marques, 66 y.o., female is here for Post-Hospital Follow-up (Patient is here for a hospital follow up for a UTI) Medication Refills: Patient reports/denies need for medication refills. Orders Pended: no Requested Prescriptions No prescriptions requested or ordered in this encounter Home Medications Medication Sig Start Date End Date Taking? Authorizing Provider acetaminophen (TYLENOL) 500 MG Tablet Take 500 mg by mouth. Patient not taking: No sig reported 11/16/21 Tyler Smith MD amitriptyline (ELAVIL) 25 MG Tablet nightly. 02/18/19 Yes Tyler Smith MD Blood Glucose Monitoring Suppl Device Diagnosis: Diabetes Type 2 Blood testing frequency: 4 times aday 11/21/17 Justen Gale MD diphenhydrAMINE (BENADRYL) 25 MG Capsule Take 25 mg by mouth every 6 hours as needed. Yes Tyler Smith MD enoxaparin (LOVENOX) 40 MG/0.4ML Solution Prefilled Syringe 40 mg by Subcutaneous route. Patient not taking: No sig reported 08/19/21 Tyler Smith MD ertapenem (INVanz) 1 g Recon Soln 11/04/21 Tyler Smith MD exemestane (AROMASIN) 25 MG Tablet Take 25 mg by mouth daily. Yes Tyler Smiht MD Glucose Blood (ONE TOUCH ULTRA TEST) Strip Test four times daily. 02/11/20 Yes Annel Rod MD HYDROcodone-acetaminophen (NORCO) 7.5-325 MG Tablet TK 1 T PO QID PRN. DO NOT FILL UNTIL Yes Tyler Smith MD Insulin Lispro, 1 Unit Dial, (HumaLOG KwikPen) 100 UNIT/ML Solution Pen-injector ADMINISTER 22 UNITS BEFORE EACH MEAL. ISF OF 1:15 IF >150 MG/DL, MAX DAILY DOSE OF 100 UNITS 12/07/21 Yes Annel Rod MD Insulin Pen Needle (B-D ULTRAFINE III SHORT PEN) 31G X 8 MM Misc USE 6 TIMES DAILY DIRECTED 06/23/21 Yes Justen Gale MD Lantus SoloStar 100 UNIT/ML Solution Pen-injector ADMINISTER 50 UNITS UNDER THE SKIN EVERY MORNING 12/07/21 Justen Gale MD Misc. Devices Misc Supply and instructions: 09/09/20 Yes Justen Gale MD Misc. Devices Misc Supply and instructions: Patient not taking: No sig reported 02/25/19 Justen Gale MD naloxone HCl (Narcan) 4 MG/0.1ML Liquid as needed 05/13/21 Tyler Smith MD nitrofurantoin, macrocrystal-monohydrate, (MACROBID) 100 MG Capsule Take 100 mg by mouth 2 times daily. Yes Tyler Smith MD nystatin [id number] UNIT/GM Powder APPLY TO THE AFFECTED AREA THREE TIMES DAILY FOR 14 DAYS Patient not taking: Reported on 03/01/2022 11/09/21 Tyler Smith MD ondansetron (Zofran) 4 MG Tablet Take 1 Tablet by mouth every 8 hours as needed for Nausea - 1st line. Patient not taking: No sig reported 01/03/22 Dannielle Berg, JAMAR Henderson Delica Lancets 33G [facility] 1 Lancet by Does not apply route 4 times daily. 03/09/21 Yes Annel Rod MD oxybutynin (DITROPAN) 5 MG Tablet TAKE 1 TABLET BY MOUTH TWICE DAILY 01/20/22 Yes Justen Gale MD oxyCODONE 10 MG Tablet 11/06/21 Tyler Smith MD pantoprazole (PROTONIX) 40 MG Tablet Delayed Response Take 1 Tablet by mouth daily. Patient not taking: No sig reported 11/09/21 Pili Elkins APRN, CHILD MONITOR rivaroxaban (XARELTO) 20 MG Tablet Take 20 mg by mouth daily. Yes Tyler Smith MD rOPINIROLE (REQUIP) 5 MG Tablet TAKE 1 TABLET BY MOUTH EVERY NIGHT 12/03/21 Yes Justen Gale MD tiZANidine (ZANAFLEX) 4 MG Tablet 09/16/21 Tyler Smith MD There are no discontinued medications. I have reviewed the home medication list with the patient and have reconciled discrepancies. The list is accurate to the best of my knowledge. Smoking Status: Social History Tobacco Use ??? Smoking status: Never Smoker ??? Smokeless tobacco: Never Used Vaping Use ??? Vaping Use: Never used Substance Use Topics ??? Alcohol use: No ??? Drug use: No Smoking Cessation Counseling Given: yes Health Care Maintenance: Health Maintenance Due Topic Date Due ??? Mammogram Unilateral Never done ??? Hepatitis B Immunization (1 of 3 - 3-dose series) Never done ??? Dilated Eye Exam Never done ??? DEXA Bone Density Never done ??? Pneumococcal Immunization (65+ years) (1 - PCV) Never done ??? Zoster Immunization (1 of 2) Never done ??? SARS-COV-2 Immunization (3 - Booster for Lay series) 06/29/2021 Orders Pended: no The following BPA's have been addressed with the patient today: Mammogram, Pap, Smoking, Depression, Fall Risk, Nutrition, Advanced Care Planning and HCC E SEWER * Pili Elkins APRN, NETTA - 03/03/2022 9:30 AM CST [facility] #2 [facility] [address] Dept: [phone] Dept Loc: [phone] Loc Patient: Karly Marques : 1955 Sex: female Subjective Subjective: HPI: Karly Marques presents for Post-Hospital Follow-up (Patient is here for a hospital follow up for a UTI) . Patient presents today for ER follow up for UTI. She is on bactrim right now for the UTI and is taking benadryl with it. She reports that her symptoms are improving. She has seen urology and will be taking Methenamine with Vit C for prophylaxis. She will also have a cystoscopy. She also needs a referral to window maker due to multiple drug allergies. Her Blood pressure has also been elevated at the hospital and she is concerned. BP was 160/90, however she reports when she is at home it is 130/80. Denies chest pain, dyspnea, or dizziness. She states she is feeling better while on antibiotics. She has some mild nausea and urinary frequency. Past Medical History Positives Diagnosis Date ??? Breast cancer (HCC) ??? Diabetes (HCC) ??? DVT (deep venous thrombosis) (HCC) ??? High blood pressure ??? History of pulmonary embolus (PE) ??? Hyperthyroidism ??? Neuropathy ??? Osteoarthritis ??? Restless leg syndrome ??? Sciatica ??? Sleep apnea ??? Spinal stenosis Current Outpatient Medications on File Prior to Visit Medication Sig Dispense Refill ??? acetaminophen (TYLENOL) 500 MG Tablet Take 500 mg by mouth. (Patient not taking: No sig reported) ??? amitriptyline (ELAVIL) 25 MG Tablet nightly. ??? Blood Glucose Monitoring Suppl Device Diagnosis: Diabetes Type 2 Blood testing frequency: 4 times a day 1 Each 0 ??? diphenhydrAMINE (BENADRYL) 25 MG Capsule Take 25 mg by mouth every 6 hours as needed. ??? enoxaparin (LOVENOX) 40 MG/0.4ML Solution Prefilled Syringe 40 mg by Subcutaneous route. (Patient not taking: No sig reported) ??? ertapenem (INVanz) 1 g Recon Soln (Patient not taking: No sig reported) ??? exemestane (AROMASIN) 25 MG Tablet Take 25 mg by mouth daily. ??? Glucose Blood (ONE TOUCH ULTRA TEST) Strip Test four times daily. 400 Strip 3 ??? HYDROcodone-acetaminophen (NORCO) 7.5-325 MG Tablet TK 1 T PO QID PRN. DO NOT FILL UNTIL 02/13/2019 0 ??? Insulin Lispro, 1 Unit Dial, (HumaLOG KwikPen) 100 UNIT/ML Solution Pen- injector ADMINISTER 22 UNITS BEFORE EACH MEAL. ISF OF 1:15 IF >150 MG/DL, MAX DAILY DOSE OF 100 UNITS 30 mL 1 ??? Insulin Pen Needle (B-D ULTRAFINE III SHORT PEN) 31G X 8 MM Misc USE 6 TIMES DAILY DIRECTED 300 Pen Needle 1 ??? Lantus SoloStar 100 UNIT/ML Solution Pen-injector ADMINISTER 50 UNITS UNDER THE SKIN EVERY MORNING 45 mL 1 ??? Misc. Devices Misc Supply and instructions: 1 Each 0 ??? Misc. Devices Misc Supply and instructions: (Patient not taking: No sig reported) 1 Each 0 ??? naloxone HCl (Narcan) 4 MG/0.1ML Liquid as needed ??? nitrofurantoin, macrocrystal-monohydrate, (MACROBID) 100 MG Capsule Take 100 mg by mouth 2 times daily. ??? nystatin [id number] UNIT/GM Powder APPLY TO THE AFFECTED AREA THREE TIMES DAILY FOR 14 DAYS (Patient not taking: Reported on 03/01/2022) ??? ondansetron (Zofran) 4 MG Tablet Take 1 Tablet by mouth every 8 hours as needed for Nausea - 1st line. (Patient not taking: No sig reported) 15 Tablet 0 ??? OneTouch Delica Lancets 33G Misc 1 Lancet by Does not apply route 4 times daily. 400 Lancet 3 ??? oxybutynin (DITROPAN) 5 MG Tablet TAKE 1 TABLET BY MOUTH TWICE DAILY 180 Tablet 3 ??? oxyCODONE 10 MG Tablet (Patient not taking: No sig reported) ??? pantoprazole (PROTONIX) 40 MG Tablet Delayed Response Take 1 Tablet by mouth daily. (Patient not taking: No sig reported) 90 Tablet 1 ??? rivaroxaban (XARELTO) 20 MG Tablet Take 20 mg by mouth daily. ??? rOPINIROLE (REQUIP) 5 MG Tablet TAKE 1 TABLET BY MOUTH EVERY NIGHT 90 Tablet 2 ??? tiZANidine (ZANAFLEX) 4 MG Tablet (Patient not taking: No sig reported) No current facility-administered medications on file prior to visit. Allergies Allergen Reactions ??? Ceftriaxone Anaphylaxis ??? Cephalosporins Anaphylaxis ??? Dermatological Products, Misc. Hives and Itching SURGICAL TAPE ??? Lorazepam Other (see Comments) and Unknown Aggrevates restless leg syndrome Aggrevates restless leg syndrome ??? Latex Rash ??? Levofloxacin Rash and Other (see Comments) ??? Macrobid [Nitrofurantoin] Itching ??? Meropenem Rash ??? Lisinopril Swelling ??? Medical Adhesive Remover Rash ??? Oxycodone Unknown ??? Reglan [Metoclopramide Hcl] Unknown ??? Reslizumab Unknown ??? Ketorolac Itching ??? Pregabalin Other (see Comments) ??? Sulfamethoxazole-Trimethoprim Itching ??? Trazodone Other (see Comments) Shaky, restlessness, itching, throat swelling Past Surgical History: Procedure Laterality Date ??? MASTECTOMY BILATERAL Bilateral 2014 ??? BREAST SURGERY ??? CHOLECYSTECTOMY ??? LAP,INGUINAL HERNIA REPR,INITIAL Review of Systems Constitutional: Negative for activity change, appetite change, chills, diaphoresis, fatigue, fever and unexpected weight change. Eyes: Negative for itching. Respiratory: Negative for cough, shortness of breath and wheezing. Cardiovascular: Negative for chest pain and palpitations. Gastrointestinal: Positive for nausea. Negative for diarrhea and vomiting. Genitourinary: Positive for frequency. Negative for decreased urine volume, difficulty urinating, dyspareunia, dysuria, enuresis, flank pain, genital sores, hematuria, menstrual problem, pelvic pain,urgency, vaginal bleeding, vaginal discharge and vaginal pain. Neurological: Negative for dizziness, speech difficulty, light-headedness, numbness and headaches. Psychiatric/Behavioral: Negative for agitation, confusion and decreased concentration. Objective Objective: BP 138/84 (BP Location: Left Arm, BP Position: Sitting, BP Cuff Size: Large) Pulse 89 Temp 97.6??F (36.4 ??C) (Temporal) Resp 16 Ht 5' 1 (1.549 m) Wt 289 lb 3.2 oz (131.2 kg) SpO2 98% BMI 54.64 kg/m?? Physical Exam Vitals and nursing note reviewed. Constitutional: General: She is not in acute distress. Appearance: Normal appearance. She is well-developed. She is obese. She is not diaphoretic. HENT: Head: Normocephalic and atraumatic. Right Ear: External ear normal. Left Ear: External ear normal. Eyes: Conjunctiva/sclera: Conjunctivae normal. Pupils: Pupils [...] left CVA tenderness, guarding or rebound. Hernia: No hernia is present. Musculoskeletal: General: No deformity or signs of injury. Cervical back: Normal range of motion. Right lower leg: No edema. Left lower leg: No edema. Skin: General: Skin is warm and dry. Neurological: General: No focal deficit present. Mental Status: She is alert and oriented to person, place, and time. Cranial Nerves: No cranial nerve deficit. Psychiatric: Mood and Affect: Mood normal. Behavior: Behavior normal. Thought Content: Thought content normal. Judgment: Judgment normal. Vital Signs Vitals: 03/03/22 0935 BP: 138/84 BP Location: Left Arm BP Position: Sitting BP Cuff Size: Large Pulse: 89 Resp: 16 Temp: 97.6 ??F (36.4 ??C) TempSrc: Temporal SpO2: 98% Weight: 289 lb 3.2 oz (131.2 kg) Height: 5' 1 (1.549 m) Lab Results Office Visit on 03/01/2022 Component Date Value Ref Range Status ??? POC UA SPECIFIC GRAVITY 03/01/2022 1.020 Final ??? URINE PH 03/01/2022 6.5 5.0 - 9.0 Final ??? POC URINE LEUKOCYTES 03/01/2022 25 /ul (A) Negative Emerson/uL Final ??? POC URINE NITRITE 03/01/2022 Negative Negative Final ??? POC URINE PROTEIN 03/01/2022 Negative Negative mg/dL Final ??? POC URINE GLUCOSE 03/01/2022 Norm Negative, Norm mg/dL Final ??? POC URINE KETONE 03/01/2022 Negative Negative mg/dL Final ??? POC URINE UROBILINOGEN 03/01/2022 Norm Norm, 0.2 E.U./dL (mg/dL), 1 E.U./dL (mg/dL) Final ??? POC URINE BILIRUBIN 03/01/2022 Negative Negative mg/dL Final ??? POC URINE BLOOD INSTRUMENT 03/01/2022 50 Minor/uL (A) Negative Minor/uL Final ??? POC URINE COLOR 03/01/2022 Yellow Final ??? POC URINE CLARITY 03/01/2022 Clear Final Appointment on 02/01/2022 Component Date Value Ref Range Status ??? POC UA SPECIFIC GRAVITY 03/01/2022 1.020 Final ??? URINE PH 03/01/2022 6.5 5.0 - 9.0 Final ??? POC URINE LEUKOCYTES 03/01/2022 25 /ul (A) Negative Emerson/uL Final ??? POC URINE NITRITE 03/01/2022 Negative Negative Final ??? POC URINE PROTEIN 03/01/2022 Negative Negative mg/dL Final ??? POC URINE GLUCOSE 03/01/2022 Negative Negative, Norm mg/dL Final ??? POC URINE KETONE 03/01/2022 Negative Negative mg/dL Final ??? POC URINE UROBILINOGEN 03/01/2022 Norm Norm, 0.2 E.U./dL (mg/dL), 1 E.U./dL (mg/dL) Final ??? POC URINE BILIRUBIN 03/01/2022 Negative Negative mg/dL Final ??? POC URINE BLOOD INSTRUMENT 03/01/2022 50 Minor/uL (A) Negative Minor/uL Final ??? POC URINE COLOR 03/01/2022 Yellow Final ??? POC URINE CLARITY 03/01/2022 Clear Final Lab Results Component Value Date WBC 7.73 01/04/2022 HEMOGLOBIN 12.7 01/04/2022 HEMATOCRIT 41.0 01/04/2022 PLATELETCNT 320 01/04/2022 CHOLESTEROL 216 (H) 04/23/2019 TRIGLYCRIDES 154 (H) 04/23/2019 HDLCHOLESTE 50.9 04/23/2019 LDL 134 (H) 04/23/2019 LDL 101 01/24/2018 LDL 110 11/02/2017 INR 28 (A) 01/13/2022 HGBA1C 6.9 (A) 07/27/2021 HGBA1C 7.6 (A) 09/29/2020 HGBA1C 6.9 01/18/2020 ESR 56 (H) 12/03/2017 Lab Results Component Value Date SODIUM 136 01/04/2022 POTASSIUM 4.0 01/04/2022 CHLORIDE 100 01/04/2022 CO2VEN 28 01/04/2022 ANIONGAP 12.0 01/04/2022 GLUCOSE 265 (H) 01/04/2022 BUN 12 01/04/2022 CREATININE 0.62 01/04/2022 BCRATIO8 19 01/04/2022 TOTALPROTEIN 8.2 01/04/2022 ALBUMIN 3.8 01/04/2022 CALCIUM 10.1 01/04/2022 TBIL 0.5 01/04/2022 SGOTAST 21 01/04/2022 SGPTALT 16 01/04/2022 ALKALINEPHO 98 01/04/2022 GFRNA >60 01/04/2022 GFRA >60 01/04/2022 TSH 3.960 07/26/2019 Please see results review for comprehensive lab results. Medical Decision Making: Assessment & Plan Diagnoses and all orders for this visit: Multiple drug allergies - EXTERNAL ALLERGY REFERRAL; Future Recurrent UTI Elevated BP without diagnosis of hypertension Discussed with patient regarding management of UTI. Defer to Urology management. Patient's BP is okay today. Will have her monitor her blood pressure over the next 2 weeks and she will contact officeif blood pressures greater than 140/80. The hypertension could be related to hospital admission andillness. Patient verbalized understanding. Referral for window maker placed. Return in about 4 months (around 07/01/2022) for pap smear. E SEWER documented in this encounter Plan of Treatment Upcoming Encounters Date Type Department Care Team (Late st Contact Info) Description 05/17/2024 2:45 PM GLOVE SEWER Office Visit [facility] - Endocrinology [facility] #2 [place] [address] Annle Rod MD #2 [facility] [address] [place] [address] Scheduled Referrals Name Type Priority Associated Diagnoses Orde r Schedule EXTERNAL ALLERGY REFERRAL Outpatient Referral Routine Multiple drug allergies Expected: 03/02/2023, Expires: 08/31/2023 documented as of this encounter Visit Diagnoses Diagnosis Multiple drug allergies- Primary Other drug allergy Recurrent UTI Urinary tract infection, site not specified Elevated BP without diagnosis of hypertension documented in this encounter Additional Health Concerns Assessment Noted Time PHQ-9 Depression Total Score: 0 07/21/19 21 3:00 PM CDT documented as of this encounter Care Teams Plate Drying Machine Tender Relationship Specialty Start Date End Date Justen Gale MD #2 [facility] [address] [place] [address] PCP - General Family Medicine 10/17/17 David Roberts APRN, NETTA #2 [place] [address] Nurse Practitioner Advanced Practice Nurse 01/31/22 documented as of this encounter
--- OUTSIDE RECORDS SUMMARY | 2024-04-26 02:57 | XMS_ITS | Encounter Summary ---
Author Organization [facility] Address [address] [place] [address] Phone Care Team Providers Care Detail Manager Name Role Phone Justen Gale MD Primary Care Provider [phone] David Roberts PROJECT INSPECTOR, ACCOUNTING REPRESENTATIVE Unavailable [phone] Reason for Visit * Reason Comments Follow-up From the E.R Urinary Tract Infection Encounter Details Date Type Department Care Team (Late st Contact Info) Description 03/01/2022 10:00 AM SHIPWRIGHT SUPERVISOR Office Visit [facility] [address] [place] [phone] David Roberts, PROJECT INSPECTOR, ACCOUNTING REPRESENTATIVE [address] [place] [address] Urinary tract infection without hematuria, site unspecified (Primary Dx); Class 3 severe obesity due to excess calories with serious comorbidity and body mass index (BMI) of 50.0 to 59.9 in adult (HCC); Acute cystitis without hematuria Discharge Disposition: Discharged to home or Selfcare [...] Coronavirus/COVID-19? No / Unsure 03/03/2022 9:24 AM SHIPWRIGHT SUPERVISOR documented as of this encounter Last Filed Vital Signs Vital Sign Reading Time Taken Comments Blood Pressure 144/82 03/01/2022 10:21 AM SHIPWRIGHT SUPERVISOR Pulse 88 03/01/2022 10:21 AM SHIPWRIGHT SUPERVISOR Temperature 36.5 ??C (97.7 ??F) 03/01/2022 10:[address] Respiratory Rate 20 03/01/2022 10:21 AM SHIPWRIGHT SUPERVISOR Oxygen Saturation 98% 03/01/2022 10:21 AM SHIPWRIGHT SUPERVISOR Inhaled Oxygen Concentration - - Weight 132 kg (291 lb) 03/01/2022 10:21 AM SHIPWRIGHT SUPERVISOR Height 154.9 cm (5' 1 ) 03/01/2022 10:21 AM SHIPWRIGHT SUPERVISOR Body Mass Index 54.98 03/01/2022 10:21 AM SHIPWRIGHT SUPERVISOR documented in this encounter Progress Notes * David Roberts, ZAMZAM, ACCOUNTING REPRESENTATIVE - 03/01/2022 10:00 AM CST UROLOGY [facility] [address] [facility] [place], [address] [place] [address] PHONE: FAX: Assessment & Plan Recurrent UTI-patient to continue Thera works in D mannose. Patient to finish full course of Macrobid. After patient completes full course patient will go to the lab and drop off a urine for culture. Will review the results and if UTI is cleared will plan to start methenamine with vitamin-C for UTI prophylaxis. Medication administration, use, and side effects discussed. If cultures still positive will treat. Upper tract imaging completed 10/26/2021 that was negative for any source of infection. Plan for cystoscopy after resolution of UTI. Subjective: 01/04/2022 HPI: HPI: Karly Marques presents with a chief complaint of recurrent UTI. Patient reports that she was admitted to the hospital on 12/22/2021 for UTI and sepsis. Culture was positive for E coli and Proteus. She had CT abdomen pelvis with contrast which was essentially normal. She reports multiple other admissions for urinary tract infections. She reports history of chronic low back pain with pain pump and had to have emergency surgery to replace. She reports that she gets a UTI about every 3-4 months. Cultures reviewed with multiple drug resistance. Her predominant symptom whenever she gets UTIs general malaise, nausea, lower abdominal pain, vomiting, urinary frequency and worsening incontinence. She reports that she feels like she may have another UTI coming on now. In addition patient has multiple drug allergies to antibiotics and she frequently has to receive IV antibiotics in order to clear UTI. UA -25 LE, negative nitrite, 50 blood PVR-0 cc 03/01/2022 HPI: HPI: Karly Marques presents to the office for follow-up from the ER on 02/27/2022 where she wasdiagnosed with a urinary tract infection. Patient was also admitted to the hospital on 02/09/2022 for UTI. Patient is currently taking Macrobid which she has an allergy to but she has been taking Benadryl with it which has kept her from itching and she has been tolerating it well. She was prescribed a 14 day course. She has noticed that symptoms have been improving. She states that she will be following up with her primary care doctor to discuss a referral to an barge worker/loan underwriter due to her multiple antibiotic allergies. She is using Thera works and D mannose for UTI prevention. She start ed the D mannose 2 days ago per recommendation of the ER. UA-25 LE, negative nitrite, 50 blood The following portions of the patient's chart were reviewed in this encounter and updated as appropriate: Tobacco Allergies ROS: Review of Systems Constitutional: Negative for chills and fever. Respiratory: Negative for cough and shortness of breath. Cardiovascular: Negative for chest pain and palpitations. Gastrointestinal: Negative for abdominal pain, diarrhea, nausea and vomiting. Genitourinary: Positive for dysuria, frequency and urgency. Negative for flank pain and hematuria. Musculoskeletal: Negative for myalgias. Neurological: Negative for dizziness and weakness. Objective: Vital signs: BP 144/82 Pulse 88 Temp 97.7 ??F (36.5 ??C) (Temporal) Resp 20 Ht 5' 1 (1.549m) Wt 291 lb (132 kg) SpO2 98% BMI 54.98 kg/m?? There were no vitals filed for this visit. Physical Exam Constitutional: General: She is not in acute distress. Appearance: Normal appearance. She is not ill-appearing. HENT: Head: Normocephalic. Cardiovascular: Rate and Rhythm: Normal rate and regular rhythm. Pulmonary: Effort: Pulmonary effort is normal. No respiratory distress. Chest: Chest wall: No tenderness. Abdominal: General: Abdomen is flat. There is no distension. Palpations: Abdomen is soft. Tenderness: There is no abdominal tenderness. There is no guarding. Musculoskeletal: General: Normal range of motion. Cervical back: Neck supple. Skin: General: Skin is warm and dry. Capillary Refill: Capillary refill takes less than 2 seconds. Neurological: General: No focal deficit present. Mental Status: She is alert and oriented to person, place, and time. Gait: Gait normal. Lab Results Component Value Date WBC 7.73 01/04/2022 HEMOGLOBIN 12.7 01/04/2022 HEMATOCRIT 41.0 01/04/2022 PLATELETCNT 320 01/04/2022 MCV 93.0 01/04/2022 Lab Results Component Value Date SODIUM 136 01/04/2022 POTASSIUM 4.0 01/04/2022 CHLORIDE 100 01/04/2022 CO2VEN 28 01/04/2022 ANIONGAP 12.0 01/04/2022 GLUCOSE 265 (H) 01/04/2022 BUN 12 01/04/2022 CREATININE 0.62 01/04/2022 BCRATIO8 19 01/04/2022 TOTALPROTEIN 8.2 01/04/2022 ALBUMIN 3.8 01/04/2022 CALCIUM 10.1 01/04/2022 TBIL 0.5 01/04/2022 SGOTAST 21 01/04/2022 SGPTALT 16 01/04/2022 ALKALINEPHO 98 01/04/2022 GFRNA >60 01/04/2022 GFRA >60 01/04/2022 No results found for: PSASCREEN, PSA, PSAFREE, PSAPCNTFREE, PSATOTAL Results for orders placed or performed in visit on 01/04/22 CULTURE, URINE Specimen: Urine Clean Catch; Culture Result Value Ref Range Status CULTURE RESULTS Greater than 100,000 CFU/ML Escherichia coli Final CULTURE RESULTS Greater than 100,000 CFU/ML Proteus mirabilis Final CULTURE RESULTS ALSO MIXED GROWTH OF DISTAL URETHRA CONTAMINANTS. Final Susceptibility Escherichia coli - [facility] Ampicillin <=2 Susceptible mcg/ml Ampicillin/sulbactam <=2 Susceptible mcg/ml Cefazolin <=4 Susceptible mcg/ml Cefepime <=1 Susceptible mcg/ml Ceftriaxone <=1 Susceptible mcg/ml Gentamicin <=1 Susceptible mcg/ml Levofloxacin <=0.12 Susceptible mcg/ml Meropenem <=0.25 Susceptible mcg/ml Nitrofurantoin 128 Resistant mcg/ml Piperacillin/Tazobactam <=4 Susceptible mcg/ml Tobramycin <=1 Susceptible mcg/ml Trimeth/Sulfamethoxazole <=20 Susceptible mcg/ml Proteus mirabilis - [facility] Ampicillin <=2 Susceptible mcg/ml Ampicillin/sulbactam <=2 Susceptible mcg/ml Cefazolin <=4 Susceptible mcg/ml Cefepime <=1 Susceptible mcg/ml Ceftriaxone <=1 Susceptible mcg/ml Gentamicin <=1 Susceptible mcg/ml Levofloxacin <=0.12 Susceptible mcg/ml Meropenem <=0.25 Susceptible mcg/ml Nitrofurantoin Resistant Piperacillin/Tazobactam <=4 Susceptible mcg/ml Tobramycin <=1 Susceptible mcg/ml Trimeth/Sulfamethoxazole <=20 Susceptible mcg/ml Results for orders placed or performed in visit on 01/03/22 URINALYSIS REFLEX IF INDICATED BY ABNORMAL RESULTS Result Value Ref Range Status SPECIFIC GRAVITY 1.025 1.003 - 1.030 Final URINE PH 5.0 5.0 - 9.0 Final WBC ESTERASE 100 /uL (A) Negative Final NITRITE Negative Negative Final PROTEIN, RANDOM URINE 30 mg/dL (A) Negative Final URINE GLUCOSE, QUAL 100 mg/dL (A) Negative Final URINE KETONES 5 mg/dL (A) Negative Final UROBILINOGEN Normal Normal mg/dL Final URINE BLOOD 50 /uL (A) Negative minor/ul Final URINALYSIS COLOR Yellow Final URINALYSIS CLARITY Slightly Cloudy Final WBC (Urine) 0-5 Negative, 0-5 /hpf Final URINE RBC'S 0-2 Negative, 0-2 /hpf Final EPITHELIAL CELLS Occasional /lpf Final BACTERIA, URINE Few (A) Negative /hpf Final CRYSTALS Amorphous urates Final Results for orders placed or performed during the hospital encounter of 12/03/17 Urinalysis Microscopic If Indicated [id number] Result Value Ref Range Status SPECIFIC GRAVITY 1.020 1.003 - 1.030 Final URINE PH 6.0 5.0 - 9.0 Final WBC ESTERASE 25 /uL (A) Negative Final NITRITE Negative Negative Final PROTEIN, RANDOM URINE Negative Negative mg/dL Final URINE GLUCOSE, QUAL Negative Negative Final URINE KETONES Negative Negative mg/dL Final UROBILINOGEN Normal Normal mg/dL Final URINE BILIRUBIN Negative Negative Final URINE BLOOD 25 /uL (A) Negative minor/ul Final URINALYSIS COLOR Pale yellow Final URINALYSIS CLARITY Slightly Cloudy Final WBC (Urine) -20 (A) Negative, 0-5 /hpf Final URINE RBC'S -20 (A) Negative, 0-2 /hpf Final EPITHELIAL CELLS Small amount /lpf Final BACTERIA, URINE Few (A) Negative /hpf Final URINE MUCOUS Few Final URINE MICRO REQUIRED Yes Final No results found for: TESTOSTTTL No results found for this or any previous visit from the past 365 days. Karly was seen today for follow-up and urinary tract infection. Diagnoses and all orders for this visit: Urinary tract infection without hematuria, site unspecified - POCT UA AUTOMATED W/O MICRO Class 3 severe obesity due to excess calories with serious comorbidity and body mass index (BMI) of50.0 to 59.9 in adult (HCC) Acute cystitis without hematuria Pt wanted to try an antibiotic and is allergic to the best ones. Lets try trimethoprimBy: David Roberts APRN, NETTA, 03/14/2022, 4:41 PM SHIPWRIGHT SUPERVISOR Primary Care Physician: Justen Gale MD WRIGHT SUPERVISOR WRIGHT SUPERVISOR documented in this encounter Miscellaneous Notes * Addendum Note - Sylvia Burgess III, MD - 03/01/2022 10:00 AM CSTAddended by: SYLVIA BURGESS III on: 03/14/2022 04:44 PM Modules accepted: Orders WRIGHT SUPERVISOR documented in this encounter Plan of Treatment Upcoming Encounters Date Type Department Care Team (Late st Contact Info) Description 05/17/2024 2:45 PM SHIPWRIGHT SUPERVISOR Office Visit [facility] - [place] [address] [place] [phone] Annel Rod MD [address] [address] documented as of this encounter Procedures Procedure Name Priority Date/Time Associated Diagnosis Comments POCT UA AUTOMATED W/O MICRO Routine 03/01/2022 10:37 AM SHIPWRIGHT SUPERVISOR Urinary tract infection without hematuria, site unspecified documented in this encounter Results * (ABNORMAL) POCT UA AUTOMATED W/O MICRO (03/01/2022 10:37 AM SHIPWRIGHT SUPERVISOR) POC UA SPECIFIC GRAVITY 1.020 URINE PH 6.5 5.0 - 9.0 POC URINE LEUKOCYTES 25 /ul(A) Negative Emerson/uL POC URINE NITRITE Negative Negative POC URINE PROTEIN Negative Negative mg/dL POC URINE GLUCOSE Norm Negative, Norm mg/dL POC URINE KETONE Negative Negative mg/dL POC URINE UROBILINOGEN Norm Norm, 0.2 E.U./dL (mg/dL), 1 E.U./dL (mg/dL) POC URINE BILIRUBIN Negative Negative mg/dL POC URINE BLOOD INSTRUMENT 50 Minor/uL(A) Negative Minor/uL POC URINE COLOR Yellow POC URINE CLARITY Clear Urine 03/01/2022 10:3 7 AM SHIPWRIGHT SUPERVISOR David Roberts PROJECT INSPECTOR, ACCOUNTING REPRESENTATIVE POINT OF CARE TESTING (MANUAL) Final Result documented in this encounter Visit Diagnoses Diagnosis Urinary tract infection without hematuria, site unspecified- Primary Class 3 severe obesity due to excess calories with serious comorbidity and body mass index (BMI) of 50.0 to 59.9 in adult (HCC) Acute cystitis without hematuria Acute cystitis documented in this encounter Additional Health Concerns Assessment Noted Time PHQ-9 Depression Total Score: 0 07/21/19 21 3:00 PM CDT documented as of this encounter Care Teams Detail Manager Relationship Specialty Start Date End Date Justen Gale MD [address] [address] PCP - General Family Medicine 10/17/17 David Roberts APRN, ACCOUNTING REPRESENTATIVE [address] [place] [address] Nurse Practitioner Advanced Practice Nurse 01/31/22 documented as of this encounter
--- OUTSIDE RECORDS SUMMARY | 2024-04-26 02:57 | XMS_ITS | Encounter Summary ---
Author Organization [facility] [employer] Care Team Providers Care Jig Boring Machine Set Up Operator Name Role Phone Justen Gale MD Primary Care Provider [phone] David Roberts APRN, OFFICE RN Unavailable [phone] Encounter Details Date Type Department Care Team (Latest Contact Info) Description 04/22/2022 Travel Social History Tobacco Use Types Packs/Day [...] Coronavirus/COVID-19? No / Unsure 04/22/2022 9:06 AM LABORER ELECTROPLATING documented as of this encounter Plan of Treatment Upcoming Encounters Date Type Department Care Team (Late st Contact Info) Description 05/17/2024 2:45 PM LABORER ELECTROPLATING Office Visit [facility] - [place] [address] [place] [phone] Annel Rod MD [address]2 [facility] [address] [place] [address] documented as of this encounter Visit Diagnoses Not on filedocumented in this encounter Additional Health Concerns Assessment Noted Time PHQ-9 Depression Total Score: 0 07/21/19 21 3:00 PM CDT documented as of this encounter Care Teams Jig Boring Machine Set Up Operator Relationship Specialty Start Date End Date Justen Gale MD [address]2 [facility] [address] [place] [address] PCP - General Family Medicine 10/17/17 David Roberts APRN, OFFICE RN [address] [place] [address] Nurse Practitioner Advanced Practice Nurse 01/31/22 documented as of this encounter
--- OUTSIDE RECORDS SUMMARY | 2024-04-26 02:57 | XMS_ITS | Encounter Summary ---
Author Organization [facility] Address [address] [place] [address] Phone Care Team Providers Care Rubber Stamp Die Inspector Name Role Phone Justen Gale MD Primary Care Provider [phone] David Roberts SHEETMETAL PATTERNMAKER, LANDSCAPE ARTIST Unavailable [phone] Reason for Visit * Reason Onset Date Comments Allergic Reaction 03/09/2022 Encounter Details Date Type Department Care Team (Late st Contact Info) Description 03/09/2022 Telephone [facility] [address] [place] [address] David Roberts, SHEETMETAL PATTERNMAKER, LANDSCAPE ARTIST [address] [place] [address] Allergic Reaction Social History Tobacco Use Types [...] Coronavirus/COVID-19? No / Unsure 03/03/2022 9:24 AM BOOKBINDER APPRENTICE documented as of this encounter Miscellaneous Notes * Telephone Encounter - David Roberts APRN, CNP - 03/15/2022 8:[address] Burgess sent trimethoprim on 03/14 to [facility]. Have patient call if any issues. Will need scheduled for cystoscopy. BINDER APPRENTICE * Telephone Encounter - Sylvia Burgess III, MD - 03/14/2022 4:37 PM BOOKBINDER APPRENTICE Suppressive trimpex is 100 mg daily I will give it a whirl but I do not have an existing note to addend it to. So please check my work BINDER APPRENTICE * Telephone Encounter - Sylvia Burgess III, MD - 03/12/2022 6:47 PM BOOKBINDER APPRENTICE I am not sure what was pended to me. Please show me Monday BINDER APPRENTICE * Telephone Encounter - Sonali Murrell RN - 03/11/2022 12:15 PM CST Order defaults to 100 mg BID for 30 days. I pended for review. Please sign and send if appropriate. BINDER APPRENTICE * Telephone Encounter - Sylvia Burgess III, MD - 03/10/2022 4:55 PM BOOKBINDER APPRENTICE Not sure this was directed to me but I looked at the chart Her last urine culture showed Nitrofurantoin did not work for the culture 12/2021 She has itching from Sulfa and nitrofurantoin and a lot of other allergies. I would be willing to try her on trimethoprim 100 mg daily. If Gregory has been seeing her or someone else knows her story they may have a better solution. She has a normal CT scan and I don't see a recent cysto Infectious disease consult will help if she needs home health IV antibiotics BINDER APPRENTICE * Telephone Encounter - Valerie Simental - 03/09/2022 3:23 PM CST PT called in stating an allergic reaction last night that sent her to the ER (Macrobid)for her recurrent UTI's. She has many drug allergies to antibiotics. She was taking Benadryl with the Macrobid to counteract reaction symptoms but began to have shortness of breath. She was on day 7 of a 14 day RX. She is worried UTI will come back if she does not continue to takeit. I advised her not to take it today. She requests a call back Please advise for further steps. BINDER APPRENTICE documented in this encounter Plan of Treatment Upcoming Encounters Date Type Department Care Team (Late st Contact Info) Description 05/17/2024 2:45 PM BOOKBINDER APPRENTICE Office Visit [facility] - Endocrinology - [place] [address] [place] [address] Annel Rod MD [address]2 [facility] [address] [place] [address] documented as of this encounter Visit Diagnoses Diagnosis Recurrent UTI- Primary Urinary tract infection, site not specified documented in this encounter Additional Health Concerns Assessment Noted Time PHQ-9 Depression Total Score: 0 07/21/19 21 3:00 PM CDT documented as of this encounter Care Teams Rubber Stamp Die Inspector Relationship Specialty Start Date End Date Justen Gale MD [address]2 [facility] [address] [place] [address] PCP - General Family Medicine 10/17/17 David Roberts, SHEETMETAL PATTERNMAKER, LANDSCAPE ARTIST [address] [place] [address] Nurse Practitioner Advanced Practice Nurse 01/31/22 documented as of this encounter
--- OUTSIDE RECORDS SUMMARY | 2024-04-26 02:57 | XMS_ITS | Encounter Summary ---
Author Organization [facility] Address [address] [place] [address] Phone Care Team Providers Care Brick Carrier Name Role Phone Justen Gale MD Primary Care Provider [phone] David Roberts APRN, HAULING CONTRACTOR Unavailable [phone] Reason for Visit * Reason Comments Mouth Lesions Joint Pain Muscle Pain Encounter Details Date Type Department Care Team (Late st Contact Info) Description 05/02/2022 3:30 PM VICE PRESIDENT PROCESS Office Visit [facility] - Family Medicine [facility] [address] [place] [address] Justen Gale MD [address] [address] Essential hypertension (Primary Dx); Canker sores oral; Myalgia Discharge Disposition: Discharged to home or Selfcare [...] Coronavirus/COVID-19? No / Unsure 05/02/2022 3:22 PM VICE PRESIDENT PROCESS documented as of this encounter Last Filed Vital Signs Vital Sign Reading Time Taken Comments Blood Pressure 162/84 05/02/2022 3:48 PM VICE PRESIDENT PROCESS Pulse 111 05/02/2022 3:26 PM VICE PRESIDENT PROCESS Temperature 36.7 ??C (98.1 ??F) 05/02/2022 3:26 PM CS T Respiratory Rate 20 05/02/2022 3:26 PM VICE PRESIDENT PROCESS Oxygen Saturation 98% 05/02/2022 3:26 PM VICE PRESIDENT PROCESS Inhaled Oxygen Concentration - - Weight 128.8 kg (284 lb) 05/02/2022 3:26 PM VICE PRESIDENT PROCESS Height 154.9 cm (5' 1 ) 05/02/2022 3:26 PM VICE PRESIDENT PROCESS Body Mass Index 53.66 05/02/2022 3:26 PM VICE PRESIDENT PROCESS documented in this encounter Progress Notes * Alvina Lockwood RMA - 05/02/2022 3:30 PM CST Karly Marques is a 66 y.o. female with current BMI: Body mass index is 53.66 kg/m??. Interventions discussed including: encourage daily physical activity and well- balanced diet. PRESIDENT PROCESS * Alvina Lockwood RMA - 05/02/2022 3:30 PM CST Karly Marques, 66 y.o., female is here for Mouth Lesions, Joint Pain, and Muscle Pain Medication Refills: Patient reports/denies need for [...] times aday 11/21/17 Yes Justen Gale MD diphenhydrAMINE (BENADRYL) 25 MG Capsule Take 25 mg by mouth every 6 hours as needed. Patient not taking: No sig reported Tyler Smith MD exemestane (AROMASIN) 25 MG [...] EVERY MORNING 12/07/21 Yes Justen Gale MD Misc. Devices Misc Supply and instructions: 09/09/20 Yes Justen Gale MD Myrbetriq 50 MG TABLET SR 24 HR Take 50 mg by mouth daily. 04/27/22 Yes Tyler Smith MD naloxone HCl (Narcan) 4 MG/0.1ML Liquid as needed Patient not taking: No sig reported 05/13/21 Tyler Smith MD nitrofurantoin, macrocrystal-monohydrate, (MACROBID) 100 MG Capsule Take 100 mg by mouth 2 times daily. Yes Tyler Smith MD nystatin [id number] UNIT/GM Powder APPLY TO THE AFFECTED AREA THREE TIMES DAILY FOR 14 DAYS Patient not taking: No sig reported 11/09/21 Tyler Smith MD ondansetron (Zofran) 4 MG Tablet Take 1 Tablet by mouth every 8 hours as needed for Nausea - 1st line. 01/03/22 Yes Dannielle Berg PAC OneTouch Delica Lancets 33G Misc 1 Lancet by Does not apply route 4 times daily. 03/09/21 Yes Annel Rod MD rivaroxaban (XARELTO) 20 MG Tablet Take 20 mg by mouth daily. Yes ProviderTyler MD rOPINIROLE (REQUIP) 5 MG Tablet TAKE 1 TABLET BY MOUTH EVERY NIGHT 12/03/21 Yes Justen Gale MD Medications Discontinued During This Encounter Medication Reason ??? oxybutynin (DITROPAN) 5 MG Tablet Med List Clean Up I have reviewed the home medication list [...] Immunization (1 of 2) Never done ??? Cervical Cancer Screening (CCS) Never done ??? Diabetes: Foot Exam 08/12/2020 ??? SARS-COV-2 Immunization (3 - Booster for Lay series) 06/29/2021 Orders Pended: no The following BPA's have been addressed with the patient today: BMI PRESIDENT PROCESS * Justen Gale MD - 05/02/2022 3:30 PM CST SUBJECTIVE: Karly Marques is here to follow-up/ evaluation on her No diagnosis found. Mouth sores Karly Marques says she has been feeling fine. Past Medical History Positives Diagnosis Date ??? Breast cancer (HCC) ??? Diabetes (HCC) ??? DVT (deep venous thrombosis) (HCC) ??? High blood pressure ??? History of pulmonary embolus (PE) ??? Hyperthyroidism ??? Neuropathy ??? Osteoarthritis ??? Restless leg syndrome ??? Sciatica ??? Sleep apnea ??? Spinal stenosis Past Surgical History: Procedure Laterality Date ??? BREAST SURGERY ??? CHOLECYSTECTOMY ??? LAP,INGUINAL HERNIA REPR,INITIAL ??? MASTECTOMY BILATERAL Bilateral 2014 Social History Tobacco Use ??? Smoking status: Never ??? Smokeless tobacco: Never Substance Use Topics ??? Alcohol use: No Exercise: no ROS: She denies chest pain, dyspnea, claudication, visual symptoms. She denies symptoms of transient ischemic attacks. No lightheadedness, palpitations, or syncope. No edema. She is compliant in taking her medication and denies medication side effects. 2 months painful mouth sores Possibly canker sores Have resolved In past 2-3 days has resolved Sores were there 6 weeks or so. Sores on tongue, cheeks of mouth, Red and turn white Painful Arms ache. Both Arms feel heavy and weak Upper body aches How lon-3 weeks No f/c hasnt been feeling good achiyness about the same Outpatient Medications Marked as Taking for the 05/02/22 encounter (Office Visit) with Shashi Gale MD Medication Sig Dispense Refill ??? amitriptyline (ELAVIL) 25 MG Tablet nightly. ??? Blood Glucose Monitoring Suppl Device Diagnosis: Diabetes Type 2 Blood testing frequency: 4 times a day 1 Each 0 ??? exemestane (AROMASIN) 25 MG Tablet Take [...] MORNING 45 mL 1 ??? Misc. Devices [facility] Supply and instructions: 1 Each 0 ??? Myrbetriq 50 MG TABLET SR 24 HR Take 50 mg by mouth daily. ??? nitrofurantoin, macrocrystal-monohydrate, (MACROBID) 100 MG Capsule Take 100 mg by mouth 2 times daily. ??? ondansetron (Zofran) 4 MG Tablet Take 1 Tablet by mouth every 8 hours as needed for Nausea - 1st line. 15 Tablet 0 ??? OneTouch Delica Lancets 33G Mis 1 Lancet by Does not apply route 4 times daily. 400 Lancet 3 ??? rivaroxaban (XARELTO) 20 MG Tablet Take 20 mg by mouth daily. ??? rOPINIROLE (REQUIP) 5 MG Tablet TAKE 1 TABLET BY MOUTH EVERY NIGHT 90 Tablet 2 Allergies Allergen Reactions ??? Ceftriaxone Anaphylaxis ??? Cephalosporins Anaphylaxis ??? Dermatological Products, Mis. Hives and Itching SURGICAL TAPE ??? Lorazepam [...] LABS Lab Results Component Value Date WBC 7.73 [...] 01/04/2022 GFRA >60 01/04/2022 TSH 3.960 07/26/2019 OBJECTIVE Well-nourished, well-developed, pleasant, cooperative 66 y.o. female in no acute distress. Vitals: 05/02/22 1526 BP: (!) 164/106 Pulse: (!) 111 Resp: 20 Temp: 98.1 ??F (36.7 ??C) TempSrc: Temporal SpO2: 98% Weight: 284 lb (128.8 kg) Height: 5' 1 (1.549 m) Body mass index is 53.66 kg/m??. BP Readings from Last 3 Encounters: 05/02/22 (!) 164/106 04/22/22 145/67 04/22/22 (!) 166/93 Wt Readings from Last 3 Encounters: 05/02/22 284 lb (128.8 kg) 04/22/22 280 lb (127 kg) 03/03/22 289 lb 3.2 oz (131.2 kg) SKIN: Warm and dry. EYES: Sclerae are clear. NECK: Supple. No thyromegaly or adenopathy, no bruits.BACK: No spine or costovertebral angle tenderness. LUNGS: Clear to auscultation and percussion. HEART:normal rate, regular rhythm, normal S1, S2, no murmurs, rubs, clicks or gallops. ABDOMEN: Bowel sounds are active. No masses. No organomegaly, no tenderness. No bruits. EXTREMITIES: No edema. Heent: No lesions Mild c spien tenderness to palp aroun c4 c5 Arms mildy tender to touvch ASSESSMENT AND PLAN There are no diagnoses linked to this encounter. Medications Discontinued During This Encounter Medication Reason ??? oxybutynin (DITROPAN) 5 MG Tablet Med List Clean Up No follow-ups on file. Continue current medication After visit summary discussed with patient. Documentation for this visit on 05/02/2022 was completed using a template. I have seen and examined the patient. Everything documented was personally performed at this visit with the necessary additions, deletions and changes made as appropriate. Canker sores: No lesions today. Urged her to call if come back Myalgia: Fibro? Pmr? Crp, esr. Htn: Off bp med. Had reaction to sara. Lips got swollen. Will put her on ccb norvasc 5 daily. n visit few weeks to recheck bp. No chest pain, no headaches Right thyroid nodule: Biopsy wnl. No cancer Seeing endo dr rod PRESIDENT PROCESS documented in this encounter Plan of Treatment Upcoming Encounters Date Type Department Care Team (Late st Contact Info) Description 05/17/2024 2:45 PM VICE PRESIDENT PROCESS Office Visit [facility] - Endocrinology - [place] [address] [place] [address] Annel Rod MD #[address] [address] Scheduled Orders Name Type Priority Associated Diagnoses Orde r Schedule ERYTHROCYTE SEDIMENTATION RATE (ESR) Lab Today Myalgia Expected: 11/17/2022, Expires: 05/20/2023 C-REACTIVE PROTEIN (CRP) QUANT Lab Today Myalgia Expected: 11/17/2022, Expires: 05/20/2023 COMPLETE BLOOD COUNT (CBC) WITH DIFF Lab Today Myalgia Expected: 11/17/2022, Expires: 05/20/2023 RHEUMATOID FACTOR (RFQT) QUANT Lab Routine Myalgia Expected: 05/02/2022, Expires: 07/31/2022 HONEY SCREEN MULTIPLEX W/REFLEX MAGGIE Lab Routine Myalgia Expected: 05/02/2022, Expires: 06/30/2022 documented as of this encounter Visit Diagnoses Diagnosis Essential hypertension- Primary Unspecified essential hypertension Canker sores oral Oral aphthae Myalgia Mylagia and myositis, unspecified documented in this encounter Additional Health Concerns Assessment Noted Time PHQ-9 Depression Total Score: 0 07/21/19 21 3:00 PM CDT documented as of this encounter Care Teams Brick Carrier Relationship Specialty Start Date End Date Just[facility] Gale MD [facility] [address] [address] PCP - General Family Medicine 10/17/17 David Roberts APRN, NETTA [address] [place] [address] Nurse Practitioner Advanced Practice Nurse 01/31/22 documented as of this encounter
--- OUTSIDE RECORDS SUMMARY | 2024-04-26 02:57 | XMS_ITS | Encounter Summary ---
Author Organization [facility] Address [address] [place] [address] Phone Care Team Providers Care Patternmaker Apprentice Metal Name Role Phone Justen Gale MD Primary Care Provider [phone] Reason for Visit * Reason Onset Date Comments Results 01/05/2022 Encounter Details Date Type Department Care Team (Late st Contact Info) Description 01/05/2022 Telephone [facility] [address] [place] [address] David Roberts, BLOOD BANK LABORATORY TECHNICIAN, CHECK WRITER [address] [place] [address] Results Social History Tobacco Use Types Packs/Day [...] Miscellaneous Notes * Telephone Encounter - Sonali uMrrell RN - 01/12/2022 2:47 PM CDT Patient was a no show for follow up * Telephone Encounter - David Roberts APRN, CNP - 01/05/2022 1:09 PM CDT Will notify when results are back * Telephone Encounter - Marlys Lane RN - 01/05/2022 11:53 AM CDT Patient calling and asking for results to the urine culture that she did yesterday. Advised patientthat results are not back yet. Patient asking for call or MyChart message once results are back. Can patient be notified of results when final? documented in this encounter Plan of Treatment Upcoming Encounters Date Type Department Care Team (Late st Contact Info) Description 05/17/2024 2:45 PM CHARGE GANG WEIGHER Office Visit [facility]inology [facility] #2 [place] [address] Annel Rod MD [address]2 [facility] [address] [place] [address] documented as of this encounter Visit Diagnoses Not on filedocumented in this encounter Additional Health Concerns Assessment Noted Time PHQ-9 Depression Total Score: 0 07/21/19 3:00 PM CDT documented as of this encounter Care Teams Patternmaker Apprentice Metal Relationship Specialty Start Date End Date Justen Gale MD [address]2 [facility] [address] [place] [address] PCP - General Family Medicine 10/17/17 documented as of this encounter
--- OUTSIDE RECORDS SUMMARY | 2024-04-26 02:57 | XMS_ITS | Encounter Summary ---
Author Organization [facility] Address [address] [place] [address] Phone Care Team Providers Care Upper Doubler Name Role Phone Justen Gale MD Primary Care Provider [phone] David Roberts APRN, TECH ED/WOODSHOP TEACHER Unavailable [phone] Reason for Visit * Reason Onset Date Comments Thyroid Problem 03/15/2022 Shortness of Breath 03/15/2022 Sore Throat 03/15/2022 Encounter Details Date Type Department Care Team (Late st Contact Info) Description 03/15/2022 Nurse Triage [facility] [address] [place] [address] Justen Gale MD #[address] [address] Thyroid Problem; Shortness of Breath; Sore Throat Social History Tobacco Use Types [...] Coronavirus/COVID-19? No / Unsure 03/03/2022 9:24 AM SCHOOL CAFETERIA COOK documented as of this encounter Miscellaneous Notes * Telephone Encounter - Katty Fajardo RN - 03/15/2022 11:03 AM SCHOOL [employer]IA COOK SITUATION: Sore throat/shortness of breath BACKGROUND: Patient calling with complaints of sore throat and shortness of breath for a couple of weeks, but has worsened over the last few days. Patient states she was recently diagnosed with a large thyroid mass. History of blood clots, breast cancer, and diabetes. Patient does take blood thinners. Patient was checked for a blood clot about 48 hours ago-CT chest, Xray of chest, and EKG-all negative. Covid, flu and strep all negative, but was given cipro due to the looks of throat and wantingto treat as strep. ASSESSMENT: Shortness of breath- Patient reports shortness of breath while sleeping, and waking patient up. Patient reports it is worse and more frequent with activity. Patient is unable to lie flat due to sleepapnea, and speaks in phrases. Denies wheezing, cough, runny nose, and fever. Patient states she feels like she can not take a deep breath or chest tightness. Shortness of breath intermittent, currently, patient is not experiencing difficulty breathing. Patient reports not notifying primary about this because she was evaluated in the hospital on 03.13.22 and everything looked ok. Sore throat- Patient reports a sore throat that has been present for about 4 days, and was placed on Ciprofloxacin, and sore throat has improved since. Patient reports ED physician stated she had blisters noted to throat. Patient states she has a large tongue and is unable to see tonsils. Patient reports she has struggled with swallowing for the last 3-4 days. Symptoms: Denies any other symptoms at this time Pain (0-10): Sore throat 3/10 Temp (route, time): Denies fever Treatment with response: Rest, cipro, salt water gargle LMP// (female only): NA RECOMMENDATION: Disposition for patient to be seen in office now. Due to office unavailability, advised for patientto be seen at [facility] or urgent care. Patient refusing [facility] due to just being seen on 03.13.22 there and being to sent to ED. Patient refusing ED at this time. Awaiting approval to call back line to see what provider recommendations would be. Spoke with Angelita at front counter attendant to ask if any appointments would be available for patient. Angelita requesting to send to office nurse. Marisol nurse, spoke with provider and will be able to see patient 03.16.22 at 1400. Assistive services verified. Allergies, medications, and pharmacy verified. Care advice given, verbalizes understands. Will call back if symptoms worsen. Patient to be evaluated in ED if symptoms worsen per provider, patient agreeable. See care advice and disposition for guideline. First positive answer recorded, all responses to prior questions were negative. If symptoms increase, change or if new symptoms develop, call your PCP or call back. Recommendation based on caller information and is not a diagnosis. Verified and reviewed all triage information with caller. Teach-back method utilized. Reason for Disposition ??? Patient wants to be seen ??? Difficulty breathing (per caller) but not severe Protocols used: BREATHING [id number], SORE THROAT-A-OH STANDING ORDER AVAILABLE OL CAFETERIA COOK documented in this encounter Plan of Treatment Upcoming Encounters Date Type Department Care Team (Late st Contact Info) Description 05/17/2024 2:45 PM SCHOOL CAFETERIA COOK Office Visit [facility] - Endocrinology - [place] [address] [place] [phone] Annel Rod MD [address] [phone] documented as of this encounter Visit Diagnoses Not on filedocumented in this encounter Additional Health Concerns Assessment Noted Time PHQ-9 Depression Total Score: 0 07/21/19 21 3:00 PM CDT documented as of this encounter Care Teams Upper Doubler Relationship Specialty Start Date End Date Justen Gale MD #[address] [address] PCP - General Family Medicine 10/17/17 David Roberts, COMMERCIAL BAKING TEACHER, TECH ED/WOODSHOP TEACHER #[address] [place] [address] Nurse Practitioner Advanced Practice Nurse 01/31/22 documented as of this encounter
--- OUTSIDE RECORDS SUMMARY | 2024-04-26 02:57 | XMS_ITS | Encounter Summary ---
Author Organization [facility] Address [address] [place] [address] Phone Care Team Providers Care Overhead Door Technician Name Role Phone Justen Gale MD Primary Care Provider [phone] Reason for Visit * Reason Comments Urinary Tract Infection Frequent Encounter Details Date Type Department Care Team (Late st Contact Info) Description 01/04/2022 9:45 AM CDT Office Visit [facility] #2 [place] [address] David Roberts, RESEARCH CHEF, PATIENT SERVICES ASSISTANT [address]2 [place] [address] Urinary tract infection without hematuria, site unspecified (Primary Dx) Discharge Disposition: Discharged to home [...] Sign Reading Time Taken Comments Blood Pressure 130/76 01/04/2022 9:59 AM CDT Pulse 91 01/04/2022 9:59 AM CDT Temperature 36.4 ??C (97.6 ??F) 01/04/2022 9:59 AM CD T Respiratory Rate 20 01/04/2022 9:59 AM CDT Oxygen Saturation 97% 01/04/2022 9:59 AM CDT Inhaled Oxygen Concentration - - Weight 132 kg (291 lb) 01/04/2022 9:59 AM CDT Height 154.9 cm (5' 1 ) 01/04/2022 9:59 AM CDT Body Mass Index 54.98 01/04/2022 9:59 AM CDT documented in this encounter Progress Notes * David Roberts, ZAMZAM, PATIENT SERVICES ASSISTANT - 01/04/2022 9:[address] [facility] [address] [facility], [address] [place] [address] PHONE: FAX: Assessment & Plan Recurrent UTI-we discussed UTI prevention strategies such as increasing fluid intake to 1.5 L of water per day, cranberry supplements, and Thera works wipes. 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 Will send urine for culture today I will call with results and treat as appropriate. Will hold off onantibiotic treatment until culture data returns to limit antibiotic exposure. Patient has history of breast cancer and would like to avoid Estrace cream. Patient to follow-up in 4 weeks for re-evaluation Subjective: 01/04/2022 HPI: HPI: Karly Marques presents [...] LE, negative nitrite, 50 blood PVR-0 cc The following portions of the patient's chart were reviewed in this encounter and updated as appropriate: Tobacco Allergies Meds Med Hx Surg Hx Fam Hx Soc Hx ROS: Review of Systems Constitutional: Negative for chills and fever. Respiratory: Negative for cough and shortness of breath. Cardiovascular: Negative for chest pain and palpitations. Gastrointestinal: Negative for abdominal pain, diarrhea, nausea and vomiting. Genitourinary: Positive for frequency and urgency. Negative for dysuria, flank pain and hematuria. Musculoskeletal: Negative for myalgias. Neurological: Negative for dizziness and weakness. Objective: Vital signs: BP 130/76 Pulse 91 Temp 97.6 ??F (36.4 ??C) (Temporal) Resp 20 Ht 5' 1 (1.549m) Wt 291 lb (132 kg) SpO2 97% BMI 54.98 kg/m?? There were no vitals [...] URETHRA CONTAMINANTS. Final Susceptibility Escherichia coli - [facility] VITEK IIB Ampicillin <=2 Susceptible mcg/ml Ampicillin/sulbactam <=2 Susceptible mcg/ml Cefazolin <=4 Susceptible mcg/ml Cefepime <=1 Susceptible mcg/ml Ceftriaxone <=1 Susceptible mcg/ml Gentamicin <=1 Susceptible mcg/ml Levofloxacin <=0.12 Susceptible mcg/ml Meropenem <=0.25 Susceptible mcg/ml Nitrofurantoin 128 Resistant mcg/ml Piperacillin/Tazobactam <=4 Susceptible mcg/ml Tobramycin <=1 Susceptible mcg/ml Trimeth/Sulfamethoxazole <=20 Susceptible mcg/ml Proteus mirabilis - [facility] V[facility] IIB Ampicillin <=2 Susceptible mcg/ml Ampicillin/sulbactam [...] Final URINE BLOOD 50 /uL (A) Negative leandro/ul Final URINALYSIS COLOR Yellow Final URINALYSIS CLARITY Slightly Cloudy Final WBC (Urine) 0-5 Negative, 0-5 /hpf Final URINE RBC'S 0-2 Negative, 0-2 /hpf Final EPITHELIAL CELLS Occasional /lpf Final BACTERIA, URINE Few (A) Negative /hpf Final CRYSTALS Amorphous urates Final Results for orders placed or performed during the hospital encounter of 12/03/17 Urinalysis Microscopic If Indicated [id number] Result Value Ref Range Status SPECIFIC GRAVITY [...] Final URINE BLOOD 25 /uL (A) Negative leandro/ul Final URINALYSIS COLOR Pale yellow Final URINALYSIS CLARITY Slightly Cloudy Final WBC (Urine) 11-20 (A) Negative, 0-5 /hpf Final URINE RBC'S 11-20 (A) Negative, 0-2 /hpf Final EPITHELIAL CELLS Small amount /lpf Final BACTERIA, URINE Few (A) Negative /hpf Final URINE MUCOUS Few Final URINE MICRO REQUIRED Yes Final No results found for: TESTOSTTTL No results found for this or any previous visit from the past 365 days. Karly was seen today for urinary tract infection. Diagnoses and all orders for this visit: Urinary tract infection without hematuria, site unspecified - POCT UA AUTOMATED W/O MICRO; Standing - NAEEM,POST-VOID RES,US,NON-IMAGING; Standing - CULTURE, URINE; Future - CULTURE, URINE By: David Roberts APRN, CNP, 01/11/2022, 7:14 AM CDT Primary Care Physician: Justen Gale MD documented in this encounter Procedure Notes * Selwyn Delarosa RMA - 01/04/2022 9:45 AM CDTAssociated Order(s): NAEEM,POST- VOID RES,US,NON-IMAGING Procedure(s): NAEEM,POST-VOID RES,US,NON-IMAGING POCT Bladder Scan collected per standing order of David Roberts LAPEL PADDER on 01/04/2022 PVR= 0 ML documented in this encounter Plan of Treatment Upcoming Encounters Date Type Department Care Team (Late st Contact Info) Description 05/17/2024 2:45 PM DRINKING WATER TECHNICIAN Office Visit [facility] - Endocrinology [facility] [address] [place] [address] Annel Rod MD #[address] [address] Scheduled Orders Name Type Priority Associated Diagnoses Orde r Schedule POCT UA AUTOMATED W/O MICRO Point of Care Testing (manual) Routine Urinary tract infection without hematuria, site unspecified 12 Occurrences starting 01/04/2022 until 01/04/2023 NAEEM,POST-VOID RES,US,NON-IMAGING Procedures Routine Urinary tract infection without hematuria, site unspecified 12 Occurrences starting 01/04/2022 until 01/04/2023 documented as of this encounter Procedures Procedure Name Priority Date/Time Associated Diagnosis Comments CULTURE, URINE Routine 01/04/2022 11:47 AM CDT Urinary tract infection without hematuria, site unspecified NAEEM,POST-VOID RES,US,NON-IMAGING Routine 01/04/2022 9:45 AM CDT Recurrent UTI documented in this encounter Results * CULTURE, URINE (01/04/2022 11:47 AM CDT) CULTURE RESULTS ESCHERICHIA COLI 01/07/2022 8:29 AM CDT [facility] CULTURE RESULTS PROTEUS MIRABILIS 01/07/2022 8:29 AM CDT [facility] CULTURE RESULTS ALSO MIXED GROWTH OF DISTAL URETHRA CONTAMINANTS. 01/07/2022 8:29 AM CDT [facility] Culture URINE SPECIMEN COLLECTION, CLEAN CATCH / Unknown Non-Phlebotomy Collection / Unknown 01/04/2022 11:47 AM CDT 01/04/2022 11:47 AM CDT Narrative Organism Antibiotic Method Susceptibility Escherichia coli Ampicillin [facility] IIB <=2 mcg/ml: Susceptible Escherichia coli Ampicillin/sulbactam [facility] IIB <=2 mcg/ml: Susceptible Escherichia coli Cefazolin [facility] IIB <=4 mcg/ml: Susceptible Escherichia coli Cefepime [facility] IIB <=1 mcg/ml: Susceptible Escherichia coli Ceftriaxone [facility] IIB <=1 mcg/ml: Susceptible Escherichia coli Gentamicin [facility] IIB <=1 mcg/ml: Susceptible Escherichia coli Levofloxacin [facility] IIB <=0.12 mcg/ml: Susceptible Escherichia coli Meropenem [facility] IIB <=0.25 mcg/ml: Susceptible Escherichia coli Nitrofurantoin [facility] IIB 128 mcg/ml: Resistant Escherichia coli Piperacillin/Tazobactam [facility] II B <=4 mcg/ml: Susceptible Escherichia coli Tobramycin [facility] IIB <=1 mcg/ml: Susceptible Escherichia coli Trimeth/Sulfamethoxazole [facility] I IB <=20 mcg/ml: Susceptible Proteus mirabilis Ampicillin [facility] IIB <=2 mcg/ml: Susceptible Proteus mirabilis Ampicillin/sulbactam [facility] IIB <=2 mcg/ml: Susceptible Proteus mirabilis Cefazolin [facility] IIB <=4 mcg/ml: Susceptible Proteus mirabilis Cefepime [facility] IIB <=1 mcg/ml: Susceptible Proteus mirabilis Ceftriaxone [facility] IIB <=1 mcg/ml: Susceptible Proteus mirabilis Gentamicin [facility] IIB <=1 mcg/ml: Susceptible Proteus mirabilis Levofloxacin [facility] IIB <=0.12 mcg/ml: Susceptible Proteus mirabilis Meropenem [facility] IIB <=0.25 mcg/ml: Susceptible Proteus mirabilis Nitrofurantoin [facility] IIB Resistant Proteus mirabilis Piperacillin/Tazobactam [facility] VITEK I IB <=4 mcg/ml: Susceptible Proteus mirabilis Tobramycin [facility] IIB <=1 mcg/ml: Susceptible Proteus mirabilis Trimeth/Sulfamethoxazole [facility] IIB <=20 mcg/ml: Susceptible us David Roberts RESEARCH CHEF, PATIENT SERVICES ASSISTANT MICROBIOLOGY - GENERAL ORDERABLES Final Result [facility] [address] [place] [address], documented in this encounter Visit Diagnoses Diagnosis Urinary tract infection without hematuria, site unspecified- Primary documented in this encounter Additional Health Concerns Assessment Noted Time PHQ-9 Depression Total Score: 0 07/21/19 21 3:00 PM CDT documented as of this encounter Care Teams Overhead Door Technician Relationship Specialty Start Date End Date Justen Gale MD #[address] [address] PCP - General Family Medicine 10/17/17 documented as of this encounter
--- OUTSIDE RECORDS SUMMARY | 2024-04-26 02:57 | XMS_ITS | Encounter Summary ---
Author Organization [facility] Address [address] [place] [address] Phone Care Team Providers Care Shopper'S Aide Name Role Phone Justen Gale MD Primary Care Provider [phone] David Roberts APRN, FLIGHT CONTROLS ENGINEER Unavailable [phone] Encounter Details Date Type Department Care Team (Latest Contact Info) Description 04/12/2022 11:06 AM PROVINCE ARCHIVIST - 04/12/2022 11:59 PM [facility] [address] [place] [address] Provider, Not On File [place] Discharge Disposition: Discharged to home or Selfcare [...] complication, without long-term current use of insulin ([facility]) Diagnosis: Diabetes Type 2 Blood [...] minophen (NORCO) 7.5-325 MG Tablet 0 02/17/2019 Misc. Devices MiscIndications:O SA (obstructive sleep apnea) Supply and instructions: 1 Each 09/09/2020 naloxone HCl (Narcan) 4 MG/0.1ML Liquid as needed 05/13/2021 OneTouch Delica Lancets 33G Misc 1 Lancet by Does not apply route 4 times daily. 400 Lancet 3 03/09/2021 rivaroxaban (XARELTO) 20 MG Tablet Take 20 mg by mouth daily. acetaminophen (TYLENOL) 500 MG Tablet Take 500 mg by mouth. 11/16/2021 2 amitriptyline (ELAVIL) 25 MG Tablet nightly. 02/18/2019 4 enoxaparin (LOVENOX) 40 MG/0.4ML Solution Prefilled Syringe 40 mg by Subcutaneous route. 08/19/2021 2 ertapenem (INVanz) 1 g Recon Soln 11/04/2021 2 Insulin Lispro, 1 Unit Dial, (HumaLOG KwikPen) [...] EVERY MORNING 45 mL 1 12/07/2021 3 Misc. Devices [facility] [place] instructions: 1 Each 02/25/2019 2 nitrofurantoin, macrocrystal-mono hydrate, (MACROBID) 100 MG Capsule Take 100 mg by mouth 2 times daily. 3 nystatin 051907 UNIT/GM Powder 11/09/2021 4 ondansetron (Zofran) 4 MG TabletIndications :Nausea and vomiting, unspecified vomiting type Take 1 Tablet by mouth every 8 hours as needed for Nausea - 1st line. 15 Tablet 01/03/2022 3 oxybutynin (DITROPAN) 5 MG Tablet TAKE 1 TABLET BY MOUTH TWICE DAILY 180 Tablet 3 01/20/2022 3 oxyCODONE 10 MG Tablet 11/06/2021 2 pantoprazole (PROTONIX) 40 MG Tablet Delayed ResponseIndicatio ns:Sepsis due to Escherichia coli without acute organ dysfunction (HCC) Take 1 Tablet by mouth daily. 90 Tablet 1 11/09/2021 2 rOPINIROLE (REQUIP) 5 MG Tablet TAKE 1 TABLET BY MOUTH EVERY NIGHT 90 Tablet 2 12/03/2021 3 tiZANidine (ZANAFLEX) 4 MG Tablet 09/16/2021 2 trimethoprim (TRIMPEX) 100 MG TabletIndications :Urinary tract infection without hematuria, site unspecified Take 1 Tablet by mouth nightly. 90 Tablet 3 03/14/2022 2 documented as of this encounter Plan of Treatment Upcoming Encounters Date Type Department Care Team (Late st Contact Info) Description 05/17/2024 2:45 PM PROVINCE ARCHIVIST Office Visit [facility] - Endocrinology - [place] [address] [place] [phone] Annel Rod MD [address] [address] documented as of this encounter Procedures Procedure Name Priority Date/Time Associated Diagnosis Comments US REFERENCE IMAGES FOR IMAGE IMPORT Routine 04/12/2022 11:06 AM PROVINCE ARCHIVIST documented in this encounter Results * US REFERENCE IMAGES FOR IMAGE IMPORT (04/12/2022 11:06 AM PROVINCE ARCHIVIST) us Not On File Provider IMG US ORDERABLES Final Res ult documented in this encounter Visit Diagnoses Not on filedocumented in this encounter Additional Health Concerns Assessment Noted Time PHQ-9 Depression Total Score: 0 07/21/19 21 3:00 PM CDT documented as of this encounter Care Teams Shopper'S Aide Relationship Specialty Start Date End Date Justen Gale MD #[address] [address] PCP - General Family Medicine 10/17/17 David Roberts APRN, FLIGHT CONTROLS ENGINEER [address] [place] [address] Nurse Practitioner Advanced Practice Nurse 01/31/22 documented as of this encounter
--- OUTSIDE RECORDS SUMMARY | 2024-04-26 02:57 | XMS_ITS | Encounter Summary ---
Author Organization [facility] Address [address] [place] [address] Phone Care Team Providers Care Research And Insights Executive Name Role Phone Justen Gale MD Primary Care Provider [phone] David Roberts APRN, PARKING MANAGER Unavailable [phone] Reason for Referral * Radiology Services (Routine) - Closed Specialty Diagnoses / Procedures Referred By Elyssa benavides Referred To Contact Radiology Diagnoses Thyroid nodule Procedures US GUIDANCE AND THYROID FINE NEEDLE ASPIRATION US GUIDANCE AND THYROID BIOPSY Justen Gale MD #[address] [address] Phone: tel: fax: Referral ID Status Reason Start Date Expiration Date Visits Re quested Visits Authorized [id number] Closed 03/29/2022 1 1 E RIDER SUPERVISOR Reason for Visit * Reason Onset Date Comments Results 03/29/2022 Encounter Details Date Type Department Care Team (Late st Contact Info) Description 03/29/2022 Telephone [facility] - [facility] [address] [place] [address] Justen Gale MD #[address] [address] Results Social History Tobacco Use Types Packs/Day [...] Coronavirus/COVID-19? No / Unsure 03/03/2022 9:24 AM ROUTE RIDER SUPERVISOR documented as of this encounter Miscellaneous Notes * Telephone Encounter - Stacy Huang RN - 03/29/2022 1:59 PM CST Called and let patient know, she stated that she understood. E RIDER SUPERVISOR * Telephone Encounter - Justen Gale MD - 03/29/2022 12:29 PM CST Please call. You have a thyroid nodule and you need a biopsy to rule out cancer I will order that E RIDER SUPERVISOR documented in this encounter Plan of Treatment Upcoming Encounters Date Type Department Care Team (Late st Contact Info) Description 05/17/2024 2:45 PM ROUTE RIDER SUPERVISOR Office Visit [facility] - Endocrinology - [place] [address] [place] [address] Annel Rod MD #[address] [phone] documented as of this encounter Results * US GUIDANCE AND THYROID FINE NEEDLE ASPIRATION (04/22/2022 10:25 AM ROUTE RIDER SUPERVISOR) Anatomical Region Laterality Modality BODY N/A Ultrasound 04/22/2022 1:01 PM ROUTE RIDER SUPERVISOR Addenda Addendum by Giovanni Tavares MD on 04/26/2022 10:13 AM ROUTE RIDER SUPERVISOR ADDENDUM REPORT: ADDENDUM: ??PATHOLOGY ADDENDUM: ??04/26/2022 Final pathology is now available and has been reviewed. Cytology is consistent with a benign nodule. ?? END OF ADDENDUM REPORT EXAM DESCRIPTION: ?? US GUIDANCE AND THYROID FINE NEEDLE ASPIRATION HISTORY: ?? Indeterminate right thyroid nodule. ?? Ultrasound guided fine-needle aspiration of this nodule was requested. COMPARISON: ?? Outside hospital ultrasound dated 03/21/2022 TECHNIQUE/FINDINGS: Comparison was made to thyroid ultrasound dated 03/21/2022. ??Immediately prior to the procedure, the healthcare team performed the safety pause and verbally confirmed that the patient, the planned procedure, the site and side were accurate. Preprocedure images redemonstrate the dominant nodule in the right thyroid lobe. ??The skin was prepped using standard aseptic technique. Local anesthesia was achieved with injection of 5 mL of 1% lidocaine in the skin and superficial tissues. Fine needle aspiration was performed of the thyroid nodule under sonographic guidance with 3 passes made with a 25-gauge needle. ??Needle placement was documented with sonographic images. An on-site pathologist confirmed specimen adequacy. No complications were noted. Hemostasis was achieved. A sterile bandage and an ice pack were applied to the site. The patient tolerated the procedure well without complication. ?? Post procedure pain control was adequate. Post procedure education was completed including pain management instructions. Estimated blood loss: ??<5 ??mL IMPRESSION: Ultrasound guided fine-needle aspiration of a ??right ?? thyroid nodule. ??Pathology is pending. THIS IS AN ELECTRONICALLY VERIFIED FINAL REPORT 04/22/2022 1:01 PM - Electronically signed by ??Giovanni Tavares M.D. AG: BAKARI D: ??04/22/2022 1:01 PM T: ??04/22/2022 1:01 PM Report ID: [id number] Reading Location: ??[id number] THIS IS AN ELECTRONICALLY VERIFIED FINAL REPORT 04/26/2022 10:10 AM ??Addendum Electronically signed by Giovanni Tavares M.D. AG: BAKARI D: ??04/26/2022 10:10 AM T: ??04/26/2022 10:10 AM Report ID: [id number] Reading Location: ??[id number] Impressions 04/22/2022 1:04 PM ROUTE RIDER SUPERVISOR IMPRESSION: Ultrasound guided fine-needle aspiration of a ??right ?? thyroid nodule. ??Pathology is pending. Narrative 04/22/2022 1:04 PM ROUTE RIDER SUPERVISOR EXAM DESCRIPTION: ?? US GUIDANCE AND THYROID FINE NEEDLE ASPIRATION HISTORY: ?? Indeterminate right thyroid nodule. ?? Ultrasound guided fine-needle aspiration of this nodule was requested. COMPARISON: ?? Outside hospital ultrasound dated 03/21/2022 TECHNIQUE/FINDINGS: Comparison was made to thyroid ultrasound dated 03/21/2022. ??Immediately prior to the procedure, the healthcare team performed the safety pause and verbally confirmed that the patient, the planned procedure, the site and side were accurate. Preprocedure images redemonstrate the dominant nodule in the right thyroid lobe. ??The skin was prepped using standard aseptic technique. Local anesthesia was achieved with injection of 5 mL of 1% lidocaine in the skin and superficial tissues. Fine needle aspiration was performed of the thyroid nodule under sonographic guidance with 3 passes made with a 25-gauge needle. ??Needle placement was documented with sonographic images. An on-site pathologist confirmed specimen adequacy. No complications were noted. Hemostasis was achieved. A sterile bandage and an ice pack were applied to the site. The patient tolerated the procedure well without complication. ?? Post procedure pain control was adequate. Post procedure education was completed including pain management instructions. Estimated blood loss: ??<5 ??mL THIS IS AN ELECTRONICALLY VERIFIED FINAL REPORT 04/22/2022 1:01 PM - Electronically signed by ??Giovanni Tavares M.D. AG: BAKARI D: ??04/22/2022 1:01 PM T: ??04/22/2022 1:01 PM Report ID: [id number] Reading Location: ??[id number] Procedure Note Giovanni Tavares MD - 04/22/2022 EXAM DESCRIPTION: US GUIDANCE AND THYROID FINE NEEDLE ASPIRATION HISTORY: Indeterminate right thyroid nodule. Ultrasound guided fine-needle aspiration of this nodule was requested. COMPARISON: Outside hospital ultrasound dated 03/21/2022 TECHNIQUE/FINDINGS: Comparison was made to thyroid ultrasound dated 03/21/2022. Immediately prior to the procedure, the healthcare team performed the safety pause and verbally confirmed that the patient, the planned procedure, the site and side were accurate. Preprocedure images redemonstrate the dominant nodule in the right thyroid lobe. The skin was prepped using standard aseptic technique. Local anesthesia was achieved with injection of 5 mL of 1% lidocaine in the skin and superficial tissues. Fine needle aspiration was performed of the thyroid nodule under sonographic guidance with 3 passes made with a 25-gauge needle. Needle placement was documented with sonographic images. An on-site pathologist confirmed specimen adequacy. No complications were noted. Hemostasis was achieved. A sterile bandage and an ice pack were applied to the site. The patient tolerated the procedure well without complication. Post procedure pain control was adequate. Post procedure education was completed including pain management instructions. Estimated blood loss: <5 mL THIS IS AN ELECTRONICALLY VERIFIED FINAL REPORT 04/22/2022 1:01 PM - Electronically signed by Giovanni Tavares M.D. AG: BAKARI Report ID: [id number] Reading Location: [place] [address] IMPRESSION: Ultrasound guided fine-needle aspiration of a right thyroid nodule. Pathology is pending. us Justen Gale MD [facility] ORDERABLES Edited Resu lt - Final documented in this encounter Visit Diagnoses Diagnosis Thyroid nodule- Primary Nontoxic uninodular goiter Thyroid nodule Nontoxic uninodular goiter documented in this encounter Additional Health Concerns Assessment Noted Time PHQ-9 Depression Total Score: 0 07/21/19 21 3:00 PM CDT documented as of this encounter Care Teams Research And Insights Executive Relationship Specialty Start Date End Date Justen Gale MD #[address] [address] PCP - General Family Medicine 10/17/17 David Roberts, FOOD SERVICE ASSOCIATE, PARKING MANAGER [address] [place] [address] Nurse Practitioner Advanced Practice Nurse 01/31/22 documented as of this encounter
--- OUTSIDE RECORDS SUMMARY | 2024-04-26 02:57 | XMS_ITS | Encounter Summary ---
Author Organization [email or web address] Care Team Providers Care Full Service Supervisor Name Role Phone Justen Gale MD Primary Care Provider [phone] Encounter Details Date Type Department Care Team (Latest Contact Info) Description 01/03/2022 Travel Social History Tobacco Use Types Packs/Day [...] st Contact Info) Description 05/17/2024 2:45 PM PARTS ROOM ASSISTANT Office Visit [facility] - Endocrinology - [place] [address] [place] [address] Annel Rod MD [address] [address] documented as of this encounter Visit Diagnoses Not on filedocumented in this encounter Additional Health Concerns Assessment Noted Time PHQ-9 Depression Total Score: 0 07/21/19 21 3:00 PM CDT documented as of this encounter Care Teams Full Service Supervisor Relationship Specialty Start Date End Date Justen Gale MD #[address] [place] [address] PCP - General Family Medicine 10/17/17 documented as of this encounter
--- OUTSIDE RECORDS SUMMARY | 2024-04-26 02:57 | XMS_ITS | Encounter Summary ---
Author Organization [facility] [email or web address] Care Team Providers Care Railroad Yard Worker Name Role Phone Justen Gale MD Primary Care Provider [phone] David Roberts APRN, PERSONNEL WORKER Unavailable [phone] Encounter Details Date Type Department Care Team (Latest Contact Info) Description 03/01/2022 Travel Social History Tobacco Use Types Packs/Day [...] suspected to have Coronavirus/COVID-19? No / Unsure 03/01/2022 10:08 AM SENIOR NET ARCHITECT documented as of this encounter Plan of Treatment Upcoming Encounters Date Type Department Care Team (Late st Contact Info) Description 05/17/2024 2:45 PM SENIOR NET ARCHITECT Office Visit [facility] - [place] [address] [place] [id number] Annel Rod MD #2 [facility] [address] [place] [address] documented as of this encounter Visit Diagnoses Not on filedocumented in this encounter Additional Health Concerns Assessment Noted Time PHQ-9 Depression Total Score: 0 07/21/19 21 3:00 PM CDT documented as of this encounter Care Teams Railroad Yard Worker Relationship Specialty Start Date End Date Justen Gale MD #2 [facility] [address] [place] [address] PCP - General Family Medicine 10/17/17 Dvaid Roberts APRN, PERSONNEL WORKER #2 [place] [address] Nurse Practitioner Advanced Practice Nurse 01/31/22 documented as of this encounter
--- OUTSIDE RECORDS SUMMARY | 2024-04-26 02:57 | XMS_ITS | Encounter Summary ---
Author Organization [facility] Address [address] [place] [address] Phone Care Team Providers Care Job Foreman Name Role Phone Justen Gale MD Primary Care Provider [phone] David Roberts APRN, UX DESIGN LEAD Unavailable [phone] Reason for Visit * Auth/Cert (Routine) Specialty Diagnoses / Procedures Referred By Elyssa benavides Referred To Contact Diagnoses THYROID NODULE Procedures PRE / POST CARE FOR PROCEDURAL AREA Referral ID Status Reason Start Date Expiration Date Visits Re quested Visits Authorized [id number] 1 1 Encounter Details Date Type Department Care Team (Latest Contact Info) Description 04/22/2022 9:09 AM EXTRACTOR PLANT OPERATOR - 04/22/2022 10:55 AM EXTRACTOR PLANT OPERATOR Hospital Encounter [facility] Preop/Pacu II [address] [place] [address] Provider, Not On File Giovanni Rodriguez MD #[address] [place] [address] Discharge Disposition: Discharged to home or Selfcare [...] Coronavirus/COVID-19? No / Unsure 04/22/2022 9:06 AM EXTRACTOR PLANT OPERATOR documented as of this encounter Last Filed Vital Signs Vital Sign Reading Time Taken Comments Blood Pressure 166/93 04/22/2022 10:50 AM EXTRACTOR PLANT OPERATOR Pulse 84 04/22/2022 10:50 AM EXTRACTOR PLANT OPERATOR Temperature 36.8 ??C (98.2 ??F) 04/22/2022 10:[address] Respiratory Rate 16 04/22/2022 10:50 AM EXTRACTOR PLANT OPERATOR Oxygen Saturation 97% 04/22/2022 10:50 AM EXTRACTOR PLANT OPERATOR Inhaled Oxygen Concentration - - Weight 127 kg (280 lb) 04/22/2022 9:22 AM EXTRACTOR PLANT OPERATOR Height 154.9 cm (5' 1 ) 04/22/2022 9:22 AM EXTRACTOR PLANT OPERATOR Body Mass Index 52.91 04/22/2022 9:22 AM EXTRACTOR PLANT OPERATOR documented in this encounter Medications at Time of Discharge albuterol 108 (90 Base) MCG/ACT Aerosol Solution take 2 Puffs by inhalation. 04/19/2021 Blood Glucose Monitoring Suppl DeviceIndications :Type 2 diabetes mellitus with complication, without long-term current use of insulin ([facility]) Diagnosis: Diabetes Type 2 Blood [...] by mouth 2 times daily. 3 nystatin 005837 UNIT/GM Powder 11/09/2021 4 ondansetron (Zofran) 4 [...] Care Review Outcome: Outcome Achieved Flowsheets (Taken 04/22/2022 0938 by Lexi Bennett RN) Plan of Care Reviewed With: patient Progress: progress toward functional goals as expected Today's Goal: Patient hopes to go home without severe pain. Does the patient need assistance with discharge and/or transitioning to the next level of care?: No, no needs anticipated Goal: Patient-Specific Goal (Individualized) Outcome: Outcome Achieved Flowsheets (Taken 04/22/2022 09 by Lexi Bennett RN) Today's Goal: Patient hopes to go home without severe pain. Goal: Absence of Hospital-Acquired Illness or Injury Outcome: Outcome Achieved Intervention: Prevent and Manage VTE (Venous Thromboembolism) Risk Flowsheets (Taken 04/22/2022 09 by Lexi Bennett, RN) VTE Prevention/Management: ambulation encouraged Goal: Optimal Comfort and Wellbeing Outcome: Outcome Achieved Intervention: Provide Person-Centered Care Flowsheets (Taken 04/22/2022 09 by Lexi Bennett, RN) Trust Relationship/Rapport: care explained empathic listening provided questions answered questions encouraged emotional support provided Goal: Readiness for Transition of Care Outcome: Outcome Achieved ACTOR PLANT OPERATOR * Plan of Care - Lexi Bennett RN - 04/22/2022 9:39 AM CST Patient here for thyroid biopsy. Patient anxious about procedure but pleased to be getting it done.Patient ready for procedure. ACTOR PLANT OPERATOR documented in this encounter Plan of Treatment Upcoming Encounters Date Type Department Care Team (Late st Contact Info) Description 05/17/2024 2:45 PM EXTRACTOR PLANT OPERATOR Office Visit [facility] - Endocrinology [facility] [address] [place] [address] Annel Rod MD #[address] [place] [address] documented as of this encounter Procedures Procedure Name Priority Date/Time Associated Diagnosis Comments PRE / POST CARE FOR PROCEDURAL AREA 04/22/2022 10:00 AM EXTRACTOR PLANT OPERATOR THYROID NODULE documented in this encounter Visit Diagnoses Not on filedocumented in this encounter Additional Health Concerns Assessment Noted Time PHQ-9 Depression Total Score: 0 07/21/19 21 3:00 PM CDT documented as of this encounter Care Teams Job Foreman Relationship Specialty Start Date End Date Justen Gale MD #[address] [address] PCP - General Family Medicine 10/17/17 David Roberts, SUPERVISOR PUMPING, UX DESIGN LEAD [address] [place] [address] Nurse Practitioner Advanced Practice Nurse 01/31/22 documented as of this encounter
--- OUTSIDE RECORDS SUMMARY | 2024-04-26 02:57 | XMS_ITS | Encounter Summary ---
Author Organization [facility] Address [address] [place] [address] Phone Care Team Providers Care Photocopying Equipment Repairer Name Role Phone Justen Gale MD Primary Care Provider Reason for Visit * Reason Onset Date Comments Results 01/04/2022 Encounter Details Date Type Department Care Team (Late st Contact Info) Description 01/04/2022 Telephone [facility] #2 [place] [address] Dannielle Berg, JAMAR #2 [place] [address] Results Social History Tobacco Use Types Packs/Day [...] encounter Miscellaneous Notes * Telephone Encounter - Doris Arevalo, RN - 01/04/2022 2:31 PM CDT Called and spoke with Jimmie AIKEN regarding results: Blood work ok except for sugar high. verbalizes understanding, he will let pt know. * Telephone Encounter - Doris Arevalo, RN - 01/04/2022 2:30 PM CDT ----- Message from Dannielle Berg, PAC sent at 01/04/2022 12:29 PM CDT ----- Blood work ok except for sugar high documented in this encounter Plan of Treatment Upcoming Encounters Date Type Department Care Team (Late st Contact Info) Description 05/17/2024 2:45 PM BATCH ANALYST Office Visit [facility] - Endocrinology - [place] #2 [place] [address] Annel Rod MD #2 [facility] [address] [place] [address] documented as of this encounter Visit Diagnoses Not on filedocumented in this encounter Additional Health Concerns Assessment Noted Time PHQ-9 Depression Total Score: 0 07/21/19 21 3:00 PM CDT documented as of this encounter Care Teams Photocopying Equipment Repairer Relationship Specialty Start Date End Date Justen Gale MD #2 [facility] [address] [place] [address] PCP - General Family Medicine 10/17/17 documented as of this encounter
--- OUTSIDE RECORDS SUMMARY | 2024-04-26 02:57 | XMS_ITS | Encounter Summary ---
Author Organization [facility] Address [address] [place] [address] Phone Care Team Providers Care Department Head Name Role Phone Justen Gale MD Primary Care Provider [phone] David Roberts APRN, WASHING MACHINE MECHANIC Unavailable [phone] Reason for Referral * Radiology Services (Routine) - Closed Specialty Diagnoses / Procedures Referred By Elyssa benavides Referred To Contact Radiology Diagnoses Thyroid nodule Procedures US GUIDANCE AND THYROID FINE NEEDLE ASPIRATION US GUIDANCE AND THYROID BIOPSY Justen Gale MD #[address] [address] Phone: tel: fax: Referral ID Status Reason Start Date Expiration Date Visits Re quested Visits Authorized [id number] Closed 03/29/2022 1 1 OMER SOLUTIONS COORDINATOR Reason for Visit * Auth/Cert (Routine) Specialty Diagnoses / Procedures Referred By Elyssa benavides Referred To Contact Diagnoses THYROID NODULE Procedures PRE / POST CARE FOR PROCEDURAL AREA Referral ID Status Reason Start Date Expiration Date Visits Re quested Visits Authorized [id number] 1 1 Encounter Details Date Type Department Care Team (Latest Contact Info) Description 04/22/2022 9:15 AM CUSTOMER SOLUTIONS COORDINATOR - 04/22/2022 11:59 PM CUSTOMER SOLUTIONS COORDINATOR Hospital En[facility] Ultrasound [address] [place] [address] Justen Gale MD [address] [place] [address] Discharge Disposition: Discharged to home or Selfcare [...] Coronavirus/COVID-19? No / Unsure 04/22/2022 9:06 AM CUSTOMER SOLUTIONS COORDINATOR documented as of this encounter Last Filed Vital Signs Vital Sign Reading Time Taken Comments Blood Pressure 145/67 04/22/2022 10:04 AM CUSTOMER SOLUTIONS COORDINATOR Pulse 76 04/22/2022 10:04 AM CUSTOMER SOLUTIONS COORDINATOR Temperature - - Respiratory Rate 18 04/22/2022 10:04 AM CUSTOMER SOLUTIONS COORDINATOR Oxygen Saturation 94% 04/22/2022 10:04 AM CUSTOMER SOLUTIONS COORDINATOR Inhaled Oxygen Concentration - - Weight - - Height - - Body Mass Index - - documented in this encounter Discharge Instructions * Discharge Instructions* Shanthi Grant RN - 04/22/2022 10:22 AM CUSTOMER SOLUTIONS COORDINATOR GENERAL GUIDELINES FOR MINIMIZING NAUSEA: Do not take pain medication on an empty stomach Eat small portions of foods because they are easier to digest and move through your stomach much faster. Be sure you are staying hydrated. Clear, cool beverages are recommended. Only take what you can tolerate. You might like trying clear soups, flavored gelatin, carbonated beverages, popsicles and ice cubes made of frozen drinks. Avoid the smells of cooking food, especially greasy ones, as the smells make make you nauseated. Discharge Instructions for Fine Needle Aspiration of Thyroid Return to you normal diet and activities Resume your normal activities tomorrow. Keep biopsy site covered today. In the [...] not go away Fever over 100.4 F OMER SOLUTIONS COORDINATOR documented in this encounter Medications at Time of Discharge albuterol 108 (90 Base) MCG/ACT Aerosol Solution take 2 Puffs by inhalation. 04/19/2021 Blood Glucose Monitoring Suppl DeviceIndications :Type 2 diabetes mellitus with complication, without long-term current use of insulin ([facility]) Diagnosis: Diabetes Type 2 Blood [...] minophen (NORCO) 7.5-325 MG Tablet 0 02/17/2019 [facility]. Devices MiscIndications:O SA (obstructive sleep apnea) Supply and instructions: 1 Each 09/09/2020 naloxone HCl (Narcan) 4 MG/0.1ML Liquid as needed 05/13/2021 OneTouch Delica Lancets 33G [facility] 1 Lancet by Does not [...] by mouth 2 times daily. 3 nystatin 150600 UNIT/GM Powder 11/09/2021 4 ondansetron (Zofran) 4 [...] * Interdisciplinary - Shanthi Grant RN - 04/22/2022 10:00 AM CST Pt. Transported to [facility] . Procedure explained to pt. to see pt. And explain procedure, understanding stated Consent formed signed. Positioned onto table on back OMER SOLUTIONS COORDINATOR * Interdisciplinary - Shanthi Grant RN - 04/22/2022 10:00 AM CST Procedure completed. VSS Tolerated well. Bandaid to right neck Ice pack for comfort. Discharge instructions reviewed with understanding stated. Ready for transport to [facility] OMER SOLUTIONS COORDINATOR documented in this encounter Plan of Treatment Upcoming Encounters Date Type Department Care Team (Late st Contact Info) Description 05/17/2024 2:45 PM CUSTOMER SOLUTIONS COORDINATOR Office Visit [facility] - Endocr[facility]ology - [place] [address] [place] [address] Annel Rod MD #[address] [address] documented as of this encounter Procedures Procedure Name Priority Date/Time Associated Diagnosis Comments US GUIDANCE AND THYROID FINE NEEDLE ASPIRATION Routine 04/22/2022 10:25 AM CUSTOMER SOLUTIONS COORDINATOR Thyroid nodule PATHOLOGY CYTOLOGY NON-HEALTH AND SOCIAL CARE TEACHER Routine 04/22/2022 10:16 AM CUSTOMER SOLUTIONS COORDINATOR Thyroid nodule documented in this encounter Results * US GUIDANCE AND THYROID FINE NEEDLE ASPIRATION (04/22/2022 10:25 AM CUSTOMER SOLUTIONS COORDINATOR) Anatomical Region Laterality Modality BODY N/A Ultrasound 04/22/2022 1:01 PM CUSTOMER SOLUTIONS COORDINATOR Addenda Addendum by Giovanni Tavares MD on 04/26/2022 10:13 AM CUSTOMER SOLUTIONS COORDINATOR ADDENDUM REPORT: ADDENDUM: ??PATHOLOGY ADDENDUM: ??04/26/2022 Final [...] Electronically signed by ??Giovanni Tavares M.D. AG: AG D: ??04/22/2022 1:01 PM T: ??04/22/2022 1:01 PM Report ID: [id number] Reading Location: ??[id number] THIS IS AN ELECTRONICALLY VERIFIED FINAL REPORT 04/26/2022 10:10 AM ??Addendum Electronically signed by Giovanni Tavares M.D. AG: BAKARI D: ??04/26/2022 10:10 AM T: ??04/26/2022 10:10 AM Report ID: [id number] Reading Location: ??[id number] Impressions 04/22/2022 1:04 PM CUSTOMER SOLUTIONS COORDINATOR IMPRESSION: Ultrasound guided fine-needle aspiration of a ??right ?? thyroid nodule. ??Pathology is pending. Narrative 04/22/2022 1:04 PM CUSTOMER SOLUTIONS COORDINATOR EXAM DESCRIPTION: ?? US GUIDANCE AND THYROID [...] PM T: ??04/22/2022 1:01 PM Report ID: [id number] Reading Location: ??[id number] Procedure Note Giovanni Tavares MD - 04/22/2022 [...] Giovanni Tavares M.D. AG: BAKARI Report ID: [id number] Reading Location: [id number] IMPRESSION: Ultrasound guided fine-needle aspiration of a right thyroid nodule. Pathology is pending. us Justen Gale MD IMG US ORDERABLES Edited Resu lt - Final * Pathology Cytology Non-HEALTH AND SOCIAL CARE TEACHER (04/22/2022 10:16 AM CUSTOMER SOLUTIONS COORDINATOR) Case Report Medical Cytology Report ? Case: [id number] ? Authorizing Provider: ??Justen Gale MD ? Collected: ? 04/22/2022 10:16 AM ? Ordering Location: ? [facility] ? Received: ?04/22/2022 10:32 AM ? [facility] ? Ultrasound ? Pathologist: ? Leo Pradhan MD ? Specimen: ?Thyroid, Right Thyroid Inferior FNA 3 passes, VAN/Chaitanya, 1016, 04/22/22 ? 04/26/2022 8:57 AM [facility] FINAL DIAGNOSIS THYROID GLAND, RIGHT INFERIOR (2.8 CM), ULTRASOUND GUIDED FINE NEEDLE ASPIRATION: - ADEQUATE FOR INTERPRETATION. - BENIGN, CONSISTENT WITH A BENIGN FOLLICULAR NODULE (INCLUDES ADENOMATOID NODULE, COLLOID NODULE, ETC.). BETHESDA CLASS II. 04/26/2022 8:57 AM [facility] Intraoperative Consultation A. Right Thyroid Inferior FNA 3 passes, VAN/Chaitanya, 1016, 04/22/22 PATHOLOGY (Immediate Interpretation) : Thyroid Gland, Right Inferior (2.8 cm), Ultrasound Guided Fine Needle Aspiration: Episode #1, Passes 1-3 - Adequate for evaluation. Conveyed to Dr. Tavares by Dr. Pradhan on April 22, 2022. Time In: 10:16 am. Time Out: 10:21 am. 04/26/2022 8:57 AM [facility] Gross Description A. Right Thyroid Inferior FNA 3 passes, VAN/Chaitanya, 1016, 04/22/22 Specimen presents in a sterile syringe designated right inferior (2.8 cm) thyroid biopsy, and is comprised of less than 1 mL of bright red fluid from which three Diff-Quik and three Pap stains (fixed in 95% alcohol) are prepared for cytologic examination. TYREE/van 04/26/2022 8:57 AM [facility] Microscopic Description Microscopic examination was performed which supports the final diagnosis. All control tissues stained appropriately. 04/26/2022 8:57 AM [facility] Non-Hand Cell Tuber Specimen Adequacy Satisfactory for evaluation. 04/26/2022 8:57 AM [facility] Non-Gyne Primary Interpretation NEGATIVE FOR MALIGNANCY. 04/26/2022 8:57 AM [facility] Non Hand Cell Tuber Interpretation Abundant colloid and some epithelial cells - favor colloid nodule. 04/26/2022 8:57 AM [facility] NON HEALTH AND SOCIAL CARE TEACHER OTHER FINDINGS RECOMMENDATION If warranted, clinical correlation and follow-up studies advised. 04/26/2022 8:57 AM CUSTOMER SOLUTIONS COORDINATOR [facility] Tissue THYROID STRUCTURE / Unknown 04/22/2022 10:16 AM CUSTOMER SOLUTIONS COORDINATOR 04/22/2022 10:32 AM CUSTOMER SOLUTIONS COORDINATOR Justen Gale MD PATHOLOGY/CYTOLOGY ORDERABLES Final Result [facility] #[address] [place] [address] documented in this encounter Visit Diagnoses Diagnosis Thyroid nodule Nontoxic uninodular goiter documented in this encounter Administered Medications Inactive Administered Medications - up to 3 most recent administrations Medication Order MAR Action Action Date Dose Rate Site lidocaine 1 % injection 10 mL 10 mL, Other, ONCE, 1 dose, On Mon04/22/22 at 1030 Given 04/22/2022 10:12 AM CUSTOMER SOLUTIONS COORDINATOR 10 mL documented in this encounter Additional Health Concerns Assessment Noted Time PHQ-9 Depression Total Score: 0 07/21/19 21 3:00 PM CDT documented as of this encounter Care Teams Department Head Relationship Specialty Start Date End Date Justen Gale MD #[address] [address] PCP - General Family Medicine 10/17/17 David Roberts, SHEETMETAL WORKER, WASHING MACHINE MECHANIC #[address] [place] [address] Nurse Practitioner Advanced Practice Nurse 01/31/22 documented as of this encounter
--- OUTSIDE RECORDS SUMMARY | 2024-04-26 02:57 | XMS_ITS | Encounter Summary ---
Author Organization [facility] Address [address] [address] Phone Care Team Providers Care Big Data Platform Architect Name Role Phone Justen Gale MD Primary Care Provider Reason for Visit * Reason Onset Date Comments Advice Only 01/07/2022 Encounter Details Date Type Department Care Team (Late st Contact Info) Description 01/07/2022 Telephone [facility] [address] [place] [address] Justen Gale MD #[address] [address] Advice Only Social History Tobacco Use Types [...] Telephone Encounter - Kiesha Byrd RN - 01/07/2022 12:05 PM CDT Patient calling in stating she was sent in antibiotic for UTI. Patient wanting to verify when she took Bactrim in September if she has any issues. This RN reviewed chart and 09/2021 patient was started onBactrim but bacteria was resistant so was switched and patient had issue with new medication and was switched back to Bactrim. Patient verbalized understanding. documented in this encounter Plan of Treatment Upcoming Encounters Date Type Department Care Team (Late st Contact Info) Description 05/17/2024 2:45 PM MOLD REPAIR TECHNICIAN Office Visit [facility] - Endocrinology - [place] #2 [place] [address] Annel Rod MD #2 [facility] [address] [place] [address] documented as of this encounter Visit Diagnoses Not on filedocumented in this encounter Additional Health Concerns Assessment Noted Time PHQ-9 Depression Total Score: 0 07/21/19 21 3:00 PM CDT documented as of this encounter Care Teams Big Data Platform Architect Relationship Specialty Start Date End Date Justen Gale MD #2 [facility] [address] [place] [address] PCP - General Family Medicine 10/17/17 documented as of this encounter
--- OUTSIDE RECORDS SUMMARY | 2024-04-26 02:57 | XMS_ITS | Encounter Summary ---
Author Organization [facility] Address [address] [place] [address] Phone Care Team Providers Care Telephone Sales Agent Name Role Phone Justen Gale MD Primary Care Provider [phone] Encounter Details Date Type Department Care Team (Late st Contact Info) Description 01/17/2022 Telephone [facility] - Family Medicine [facility] #[address] [place] [address] Justen Gale MD #[address] [address] Social History Tobacco Use Types Packs/Day Years [...] Telephone Encounter - Jennifer Wang RN - 01/19/2022 2:41 PM CDT Notes faxed. * Telephone Encounter - Doris Arevalo RN - 01/17/2022 11:49 AM CDT ----- Message from Bayronchung Gould sent at 01/17/2022 11:45 AM CDT ----- Regarding: Fax Clinicals [facility]: Allie calling from [employer] is calling in to request clinicals to be faxed over to [phone] in order to process her supplies. Please call Suleman [phone] (relationship to patient provider) back regarding above referenced patient. Patient's Provider is Justen Gale MD. documented in this encounter Plan of Treatment Upcoming Encounters Date Type Department Care Team (Late st Contact Info) Description 05/17/2024 2:45 PM MR TEACHER Office Visit [facility] - Endocrinology [facility] #[address] [place] [address] Annel Rod MD #[address] [facility] [address] [place] [address] documented as of this encounter Visit Diagnoses Not on filedocumented in this encounter Additional Health Concerns Assessment Noted Time PHQ-9 Depression Total Score: 0 07/21/19 21 3:00 PM CDT documented as of this encounter Care Teams Telephone Sales Agent Relationship Specialty Start Date End Date Justen Gale MD #[address] [facility] [address] [place] [address] PCP - General Family Medicine 10/17/17 documented as of this encounter
--- OUTSIDE RECORDS SUMMARY | 2024-04-26 02:58 | XMS_ITS | Encounter Summary ---
Author Organization [facility] Address [address] [place] [address] Phone Care Team Providers Care Fire And Safety Helper Name Role Phone Justen Gale MD Primary Care Provider [phone] Reason for Visit * Reason Comments Urinary Tract Infection Encounter Details Date Type Department Care Team (Late st Contact Info) Description 10/08/2021 1:30 PM CDT [facility] Visit [facility] #2 [place] [id number] Angelito Alegria, INJECTION PRESS OPERATOR, MANAGER NURSING #[address] [address] Acute UTI (Primary Dx); UTI symptoms; S/P lumbar laminectomy Discharge Disposition: Discharged to home or Selfcare Social History Tobacco Use Types Packs/Day Years Used Date Smoking Tobacco: Never Smokeless Tobacco: Never Alcohol Use Standard Drinks/Week Comments No 0 (1 standard drink = 0.6 oz pur e alcohol) PHQ-2 Answer Date Recorded Total Score - Questions 1-9 0 12/2021 Sexually Active Control Partners Comments Never [...] suspected to have Coronavirus/COVID-19? No / Unsure 10/08/2021 1:15 PM CDT documented as of this encounter Last Filed Vital Signs Vital Sign Reading Time Taken Comments Blood Pressure 136/66 10/08/2021 1:34 PM CDT Pulse 82 10/08/2021 1:34 PM CDT Temperature 36.7 ??C (98.1 ??F) 10/08/2021 1:34 PM CD T Respiratory Rate 14 10/08/2021 1:34 PM CDT Oxygen Saturation 98% 10/08/2021 1:34 PM CDT Inhaled Oxygen Concentration - - Weight 129.3 kg (285 lb) 10/08/2021 1:34 PM CDT Height 154.9 cm (5' 1 ) 10/08/2021 1:34 PM CDT Body Mass Index 53.85 10/08/2021 1:34 PM CDT documented in this encounter Progress Notes * Remi Miguel, RYAN - 10/08/2021 1:30 PM CDT Karly Marques, 66 y.o., female is here for Urinary Tract Infection Medication Refills: Patient reports/denies need for medication refills. Orders Pended: no Requested Prescriptions No prescriptions requested or ordered in this encounter Home Medications Medication Sig Start Date End Date Taking? Authorizing Provider amitriptyline (ELAVIL) 25 MG Tablet nightly. 02/18/19 Yes Tyler Smith MD Blood Glucose Monitoring Suppl Device Diagnosis: Diabetes Type 2 Blood testing frequency: 4 times aday 11/21/17 Yes Justen Gale MD Clindamycin HCl (CLEOCIN) 300 MG Capsule Take 300 mg by mouth 3 times daily. Indications: Infectionof the Skin and/or Soft Tissue Tyler Smith MD enoxaparin (LOVENOX) 40 MG/0.4ML Solution Prefilled Syringe 40 mg by Subcutaneous route. Patient not taking: Reported on 10/08/2021 08/19/21 Tyler Smith MD exemestane (AROMASIN) 25 [...] BEFORE EACH MEAL. ISF OF 1:15 IF >140 MG/dL, MAX OF 120 UNITS PER DAY 03/15/21 Yes Annel Rod MD Insulin Pen Needle (B-D ULTRAFINE III SHORT PEN) 31G X 8 MM Misc USE 6 TIMES DAILY DIRECTED 06/23/21 Yes Justen Gale MD Lantus SoloStar 100 UNIT/ML Solution Pen-injector ADMINISTER 50 UNITS UNDER THE SKIN EVERY MORNING 03/16/21 Yes Justen Gale MD Misc. Devices Misc Supply and instructions: 09/09/20 Yes Justen Gale MD Misc. Devices Misc Supply and instructions: 02/25/19 Yes Justen Gale MD mupirocin (BACTROBAN) 2 % Ointment APPLY TOPICALLY TO THE AFFECTED AREA THREE TIMES DAILY FOR 7 DAYS 09/22/21 Tyler Smith MD OneTouch Delica Lancets 33G Misc 1 Lancet by Does not apply route 4 times daily. 03/09/21 Yes Annel Rod MD oxybutynin (DITROPAN) 5 MG Tablet Take 1 Tablet by mouth 2 times daily. 10/13/20 Yes Justen Gale MD pantoprazole (PROTONIX) 40 MG Tablet Delayed Response 09/14/21 Tyler Smith MD rivaroxaban (XARELTO) 20 MG Tablet Take 20 mg by mouth daily. Yes Tyler Smith MD rOPINIROLE (REQUIP) 5 MG Tablet TAKE 1 TABLET BY MOUTH EVERY NIGHT 03/15/21 Yes Justen Gale MD sulfamethoxazole-trimethoprim DS (BACTRIM DS, SEPTRA DS) 800-160 MG Tablet TAKE 1 TABLET BY MOUTH EVERY 12 HOURS 09/22/21 Tyler Smith MD tiZANidine (ZANAFLEX) 4 MG Tablet TAKE 1 TABLET BY MOUTH EVERY 6 HOURS NEEDED FOR MUSCLE SPASMS 09/16/21 Yes Tyler Smith MD triamcinolone (ARISTOCORT) 0.5 % Cream APPLY TOPICALLY TO THE AFFECTED AREA TWICE DAILY NEEDED 09/22/21 ProviderTyler MD There are no discontinued medications. [...] Drug use: No Smoking Cessation Counseling Given: n/a Health Care Maintenance: Health Maintenance Due Topic Date Due ??? Mammogram Unilateral Never done ??? Dilated Eye Exam Never done ??? DEXA Bone Density Never done ??? Pneumococcal Immunization (65+ years) (1 - PCV) Never done ??? Zoster Immunization (1 of 2) Never done ??? SARS-COV-2 Immunization (3 - Booster for Lay series) 06/29/2021 Orders Pended: no * Angelito Alegria APRN, CNP - 10/08/2021 1:30 PM CDT Images from the original note were not included. Subjective: CC: UTI symptoms and S/P lumbar laminectomy Karly Marques is a 66-year-old female who presents to the office today UTI symptoms and status post lumbar laminectomy. Having urinary burning, frequency, and malaise. Has history of frequent UTI. Recent lumbar laminectomy and having some serous fluid and drainage. She did have some erythema and tenderness surrounding 1 of her incisions and was started on clindamycin per [facility] ER. She has no other acute complaints this time. The history is provided by the patient and medical records. No distribution center manager was used. Urinary Tract Infection Associated symptoms include frequency. Pertinent negatives include no chills, flank pain, hematuria, nausea, urgency or vomiting. Review of Systems Constitutional: Negative for chills, fatigue and fever. HENT: Negative for congestion, ear discharge, ear pain, postnasal drip, sinus pressure, sinus pain,sore throat and trouble swallowing. Eyes: Negative for photophobia, pain and discharge. Respiratory: Negative for cough, chest tightness, shortness of breath and wheezing. Cardiovascular: Negative for chest pain and palpitations. Gastrointestinal: Negative for abdominal pain, constipation, diarrhea, nausea and vomiting. Genitourinary: Positive for dysuria and frequency. Negative for flank pain, hematuria and urgency. Musculoskeletal: Positive for back pain. Negative for arthralgias and myalgias. Skin: Positive for wound. Negative for rash. Neurological: Negative for dizziness, seizures, syncope, numbness and headaches. Psychiatric/Behavioral: Negative for suicidal ideas. Allergies Allergies Allergen Reactions ??? Ceftriaxone Anaphylaxis ??? Cephalosporins Anaphylaxis ??? Lorazepam Other (see Comments) and Unknown Aggrevates restless leg syndrome Aggrevates restless leg syndrome ??? Latex Rash ??? Levofloxacin Rash and Other (see Comments) ??? Lisinopril Swelling ??? Oxycodone Unknown ??? Reglan [Metoclopramide Hcl] Unknown ??? Reslizumab Unknown ??? Skin Adhesives Rash ??? Ketorolac Itching ??? Pregabalin Other (see Comments) ??? Trazodone Other (see Comments) Shaky, restlessness, itching, throat swelling Medications Current Outpatient Medications: ??? amitriptyline (ELAVIL) 25 MG Tablet, nightly., Disp: , Rfl: ??? Blood Glucose Monitoring Suppl Device, Diagnosis: Diabetes Type 2 Blood testing frequency: 4 times a day, Disp: 1 Each, Rfl: 0 ??? Clindamycin HCl (CLEOCIN) 300 MG Capsule, Take 300 mg by mouth 3 times daily. Indications: Infection of the Skin and/or Soft Tissue, Disp: , Rfl: ??? enoxaparin (LOVENOX) 40 MG/0.4ML Solution Prefilled Syringe, 40 mg by Subcutaneous route. (Patient not taking: Reported on 10/08/2021), Disp: , Rfl: ??? exemestane (AROMASIN) 25 MG Tablet, Take 25 mg by mouth daily., Disp: , Rfl: ??? Glucose Blood (ONE TOUCH ULTRA TEST) Strip, Test four times daily., Disp: 400 Strip, Rfl: 3 ??? HYDROcodone-acetaminophen (NORCO) 7.5-325 MG Tablet, TK 1 T PO QID PRN. DO NOT FILL UNTIL 02/13/2019, Disp: , Rfl: 0 ??? Insulin Lispro, 1 Unit Dial, (HumaLOG KwikPen) 100 UNIT/ML Solution Pen- injector, ADMINISTER 22UNITS BEFORE EACH MEAL. ISF OF 1:15 IF >140 MG/dL, MAX OF 120 UNITS PER DAY, Disp: 45 mL, Rfl: 1 ??? Insulin Pen Needle (B-D ULTRAFINE III SHORT PEN) 31G X 8 MM Misc, USE 6 TIMES DAILY DIRECTED, Disp: 300 Pen Needle, Rfl: 1 ??? Lantus SoloStar 100 UNIT/ML Solution Pen-injector, ADMINISTER 50 UNITS UNDER THE SKIN EVERY MORNING, Disp: 45 mL, Rfl: 1 ??? Misc. Devices Misc, Supply and instructions:, Disp: 1 Each, Rfl: 0 ??? Misc. Devices Misc, Supply and instructions:, Disp: 1 Each, Rfl: 0 ??? OneTouch Delica Lancets 33G Misc, 1 Lancet by Does not apply route 4 times daily., Disp: 400 Lancet, Rfl: 3 ??? oxybutynin (DITROPAN) 5 MG Tablet, Take 1 Tablet by mouth 2 times daily., Disp: 180 Tablet, Rfl: 3 ??? pantoprazole (PROTONIX) 40 MG Tablet Delayed Response, , Disp: , Rfl: ??? rivaroxaban (XARELTO) 20 MG Tablet, Take 20 mg by mouth daily., Disp: , Rfl: ??? rOPINIROLE (REQUIP) 5 MG Tablet, TAKE 1 TABLET BY MOUTH EVERY NIGHT, Disp: 90 Tablet, Rfl: 2 ??? sulfamethoxazole-trimethoprim DS (Bactrim DS) 800-160 MG Tablet, Take 2 Tablets by mouth 2 times daily for 10 days. Take with food, until finished., Disp: 40 Tablet, Rfl: 0 ??? tiZANidine (ZANAFLEX) 4 MG Tablet, TAKE 1 TABLET BY MOUTH EVERY 6 HOURS NEEDED FOR MUSCLE SPASMS, Disp: , Rfl: Past Medical History Past Medical History Positives Diagnosis Date ??? Breast cancer (HCC) ??? Diabetes (HCC) ??? DVT (deep venous thrombosis) (HCC) ??? High blood pressure ??? History of pulmonary embolus (PE) ??? Hyperthyroidism ??? Neuropathy ??? Osteoarthritis ??? Restless leg syndrome ??? Sciatica ??? Sleep apnea ??? Spinal stenosis Past Surgical History Past Surgical History: Procedure Laterality Date ??? BREAST SURGERY ??? CHOLECYSTECTOMY ??? LAP,INGUINAL HERNIA REPR,INITIAL ??? MASTECTOMY BILATERAL Bilateral 2014 Family History Family History Problem Relation Age of Onset ??? Stroke Mother ??? Cancer Father Social History Social History Tobacco Use ??? Smoking status: Never Smoker ??? Smokeless tobacco: Never Used Vaping Use ??? Vaping Use: Never used Substance Use Topics ??? Alcohol use: No ??? Drug use: No Objective: Physical Exam Vitals and nursing note reviewed. Constitutional: General: She is not in acute distress. Appearance: She is well-developed. She is morbidly obese. She is not diaphoretic. HENT: Head: Normocephalic and atraumatic. Right Ear: External ear normal. Left Ear: External ear normal. Nose: Nose normal. Eyes: General: Right eye: No discharge. Left eye: No discharge. Conjunctiva/sclera: Conjunctivae normal. Pupils: Pupils are equal, [...] and dry. Coloration: Skin is not pale. Findings: No rash. Neurological: Mental Status: She is alert and oriented to person, place, and time. Psychiatric: Behavior: Behavior normal. Thought Content: Thought content normal. Judgment: Judgment normal. Vitals: 10/08/21 1334 BP: 136/66 BP Location: Right Arm BP Position: Sitting BP Cuff Size: Regular Pulse: 82 Resp: 14 Temp: 98.1 ??F (36.7 ??C) TempSrc: Temporal SpO2: 98% Weight: 285 lb (129.3 kg) Height: 5' 1 (1.549 m) Assessment and Plan See Diagnoses, Orders, Follow-up, and Instructions 1. Acute UTI - CULTURE, URINE; Future - sulfamethoxazole-trimethoprim DS (Bactrim DS) 800-160 MG Tablet; Take 2 Tablets by mouth 2 times daily for 10 days. Take with food, until finished. Dispense: 40 Tablet; Refill: 0 - CULTURE, URINE 2. UTI symptoms - POCT UA AUTOMATED W/O MICRO 3. S/P lumbar laminectomy Will send for culture. Bactrim DS will cover wound infection as well as UTI. Follow-up with surgeon. I discussed all new medications and potential side effects or risks associated with them. Patient is to contact our office with any concerns. Patient instructions and educational materials were given to the patient. Patient (or patient roofing sales representative) demonstrates verbal understanding of instructions given. Patient should follow up with their PCP for general health maintenance needs. Patient should contact our office if their problems persist or call 911/go the to ER if issues become more persistent. If any referrals have been made, patient should contact our office with in 3-5 days if they have not heard anything from our referral team or the referring physician. Documentation for this visit on 10/08/21 was completed using a template. I have seen and examined the patient. Everything documented was personally performed at this visit with the necessary additions, deletions and changes made as appropriate. documented in this encounter Plan of Treatment Upcoming Encounters Date Type Department Care Team (Late st Contact Info) Description 05/17/2024 2:45 PM RANCH HAND Office Visit [facility] - Endocrinology - [place] #2 [place] [phone] Annel Rod MD #[address] [phone] documented as of this encounter Procedures Procedure Name Priority Date/Time Associated Diagnosis Comments CULTURE, URINE Routine 10/08/2021 2:10 PM CDT Acute UTI POCT UA AUTOMATED W/O MICRO Routine 10/08/2021 1:24 PM CDT UTI symptoms documented in this encounter Results * CULTURE, URINE (10/08/2021 2:10 PM CDT) Pathologist [facility] CULTURE RESULTS ESCHERICHIA COLI 10/10/2021 3:10 PM CDT [facility] Comment:PRESUMPTIVE IDENTIFI CATION Culture URINE SPECIMEN COLLECTION, CLEAN CATCH / Unknown Non-Phlebotomy Collection / Unknown 10/08/2021 2:10 PM CDT 10/08/2021 2:10 PM CDT Narrative Organism Antibiotic Method Susceptibility Escherichia coli Ampicillin [facility] V[facility] IIB 8 mcg/ml: Susceptible Escherichia coli Ampicillin/sulbactam [facility] IIB 4 mcg/ml: Susceptible Escherichia coli Cefazolin [facility] IIB <=4 mcg/ml: Susceptible Escherichia coli Cefepime [facility] IIB <=1 mcg/ml: Susceptible Escherichia coli Ceftriaxone [facility] IIB <=1 mcg/ml: Susceptible Escherichia coli Gentamicin [facility] IIB <=1 mcg/ml: Susceptible Escherichia coli Levofloxacin [facility] IIB 1 mcg/ml: Intermediate Escherichia coli Meropenem [facility] IIB <=0.25 mcg/ml: Susceptible Escherichia coli Nitrofurantoin [facility] IIB <=16 mcg/ml: Susceptible Escherichia coli Piperacillin/Tazobactam [facility] II B <=4 mcg/ml: Susceptible Escherichia coli Tobramycin [facility] IIB <=1 mcg/ml: Susceptible Escherichia coli Trimeth/Sulfamethoxazole [facility] I IB >=320 mcg/ml: Resistant us Angelito Alegria APRN, MANAGER NURSING MICROBIOLOGY - G ENERAL ORDERABLES Final Result [facility] [address] [place] [address], * (ABNORMAL) POCT UA AUTOMATED W/O MICRO (10/08/2021 1:24 PM CDT) Pathologist [facility] POC UA SPECIFIC GRAVITY 1.010 URINE PH 6.0 5.0 - 9.0 UR, LEUKOCYTES 2+ (500 Emerson/uL)(A) Negative Emerson/uL UR, NITRITE Positive(A) Negative UR, PROTEIN 1+ (30 mg/dL)(A) Negative mg/dL UR, GLUCOSE Normal Normal mg/dL UR, KETONE Negative Negative mg/dL UR, UROBILINOGEN Normal Normal mg/dL UR, BILIRUBIN Negative Negative mg/dL UR. BLOOD 2+ (250 Minor/uL)(A) Negative URINALYSIS COLOR Yellow URINALYSIS CLARITY Very Cloudy Urine 10/08/2021 1:24 PM CDT Angelito Alegria INJECTION PRESS OPERATOR, MANAGER NURSING POINT OF CARE TE STING (MANUAL) Final Result documented in this encounter Visit Diagnoses Diagnosis Acute UTI- Primary Urinary tract infection, site not specified UTI symptoms S/P lumbar laminectomy documented in this encounter Additional Health Concerns Assessment Noted Time PHQ-9 Depression Total Score: 0 07/21/19 21 3:00 PM CDT documented as of this encounter Care Teams Fire And Safety Helper Relationship Specialty Start Date End Date Justen Gale MD #[address] [place] [id number] PCP - General Family Medicine 10/17/17 documented as of this encounter
--- OUTSIDE RECORDS SUMMARY | 2024-04-26 02:58 | XMS_ITS | Encounter Summary ---
Author Organization [facility] Address [address] [place] [address] Phone Care Team Providers Care Executive Director Global Brand Marketing Name Role Phone Justen Gale MD Primary Care Provider [phone] Reason for Referral * Consult, Test & Initiate Treatment (Routine) - Canceled Specialty Diagnoses / Procedures Referred By Contac t Referred To Contact Urology Diagnoses Frequent UTI Justen Gale MD #[address] [address] Phone: tel: fax: [facility] #[address] [place] [address] Phone: tel: fax: Referral ID Status Reason Start Date Expiration Date V isits Requested Visits Authorized [id number] Canceled 11/04/2021 1 11 Scheduling Instructions Karly is being referred for frequent uti's. Please contact patient for scheduling questions or concerns. Reason for Visit * Reason Onset Date Comments Referral 11/03/2021 Encounter Details Date Type Department Care Team (Late st Contact Info) Description 11/03/2021 Telephone [facility] [address] [place] [address] Justen Gale MD #2 [facility] [address] [place] [address] Referral Social History Tobacco Use Types Packs/Day [...] Telephone Encounter - Lizzy Umana RN - 11/03/2021 1:19 PM CDT Calls stating she is currently hospitalized at [facility] for UTI and sepsis. Was advisedby provider in hospital that she should be referred to a urologist for a urodynamic study. Told to contact her PCP for this referral and she would like referred to whoever Dr. Gale would recommend. Please advise. documented in this encounter Plan of Treatment Upcoming Encounters Date Type Department Care Team (Late st Contact Info) Description 05/17/2024 2:45 PM RECORDING ARTIST Office Visit [facility] - Endocrinology - [place] #[address] [place] [address] Annel Rod MD #2 [facility] [address] [place] [address] Scheduled Referrals Name Type Priority Associated Diagnoses Orde r Schedule UROLOGY REFERRAL Outpatient Referral Routine Frequent UTI Expected: 11/03/2022, Expires: 05/06/2023 documented as of this encounter Visit Diagnoses Diagnosis Frequent UTI- Primary Urinary tract infection, site not specified documented in this encounter Additional Health Concerns Assessment Noted Time PHQ-9 Depression Total Score: 0 07/21/19 21 3:00 PM CDT documented as of this encounter Care Teams Executive Director Global Brand Marketing Relationship Specialty Start Date End Date Justen Gale MD [address] [place] [phone] PCP - General Family Medicine 10/17/17 documented as of this encounter
--- OUTSIDE RECORDS SUMMARY | 2024-04-26 02:58 | XMS_ITS | Encounter Summary ---
Author Organization [facility] Address [address] [place] [address] Phone Care Team Providers Care Flight Radio Officer Name Role Phone Justen Gale MD Primary Care Provider Reason for Referral * Consult, Test & Initiate Treatment (Routine) - Closed Specialty Diagnoses / Procedures Referred By Contkristina t Referred To Contact Diagnoses Radiculopathy, lumbosacral region Justen Gale MD #[address] [address] Phone: tel: fax: Referral ID Status Reason Start Date Expiration Date Visits Re quested Visits Authorized [id number] Closed 12/21/2021 12 12 Scheduling Instructions Karly is being referred to Yazmin Smith NPI # [id number] or other specialist in patient's insurance network for [id number]. See below for Karly's current medications, allergies and problem list. CURRENT MEDS: Current Outpatient Medications: acetaminophen (TYLENOL) 500 MG Tablet, Take 500 mg by mouth. (Patient not taking: Reported on 12/07/2021), Disp: , Rfl: amitriptyline (ELAVIL) 25 MG Tablet, nightly., Disp: , Rfl: Blood Glucose Monitoring Suppl Device, Diagnosis: Diabetes Type 2 Blood testing frequency: 4 times a day, Disp: 1 Each, Rfl: 0 Clindamycin HCl (CLEOCIN) 300 MG Capsule, Take 300 mg by mouth 3 times daily. Indications: Infection of the Skin and/or Soft Tissue (Patient not taking: No sig reported), Disp: , Rfl: enoxaparin (LOVENOX) 40 MG/0.4ML [...] Rfl: 0 Misc. Devices Misc, Supply and instructions:, Disp: 1 Each, Rfl: 0 naloxone HCl (Narcan) 4 MG/0.1ML Liquid, as needed, Disp: , Rfl: nystatin 322614 UNIT/GM Powder, APPLY TO THE AFFECTED AREA THREE TIMES DAILY FOR 14 DAYS, Disp: , Rfl: OneTouch Delica Lancets 33G Misc, 1 Lancet by Does not apply route 4 times daily., Disp: 400 Lancet, Rfl: 3 oxybutynin (DITROPAN) 5 MG Tablet, Take 1 Tablet by mouth 2 times daily., Disp: 180 Tablet, Rfl: 3 oxyCODONE 10 MG Tablet, , Disp: , Rfl: pantoprazole (PROTONIX) 40 MG Tablet Delayed Response, Take 1 Tablet by mouth daily., Disp: 90 Tablet, Rfl: 1 rivaroxaban (XARELTO) [...] polyneuropathy, with long-term current use of insulin ([facility]) Acute deep vein thrombosis (DVT) of proximal [...] Visit * Reason Onset Date Comments Referral 12/21/2021 Encounter Details Date Type Department Care Team (Late Contact Info) Description 12/21/2021 Telephone [facility] [place] [facility]2 [place] [address] Justen Gale MD #[address] [address] Referral Social History Tobacco Use Types Packs/Day [...] suspected to have Coronavirus/COVID-19? No / Unsure 12/07/2021 1:33 PM CDT documented as of this encounter Miscellaneous Notes * Telephone Encounter - Stacy Huang RN - 12/21/2021 10:43 AM CDT Received fax from Yazmin Smith office for pain referral. Referral pended. documented in this encounter Plan of Treatment Upcoming Encounters Date Type Department Care Team (Late Contact Info) Description 05/17/2024 2:45 PM KITCHENHAND Office Visit [facility] - Endocrinology - [place] [address] [place] [address] Annel Rod MD #2 [facility] [address] [place] [address] Scheduled Referrals Name Type Priority Associated Diagnoses Orde r Schedule EXTERNAL PAIN REFERRAL Outpatient Referral Routine Radiculopathy, lumbosacral region Expected: 12/21/2022, Expires: 06/22/2023 documented as of this encounter Visit Diagnoses Diagnosis Radiculopathy, lumbosacral region- Primary Thoracic or lumbosacral neuritis or radiculitis, unspecified documented in this encounter Additional Health Concerns Assessment Noted Time PHQ-9 Depression Total Score: 0 07/21/19 21 3:00 PM CDT documented as of this encounter Care Teams Flight Radio Officer Relationship Specialty Start Date End Date Justen Gale MD #2 [facility] [address] [place] [address] PCP - General Family Medicine 10/17/17 documented as of this encounter
--- OUTSIDE RECORDS SUMMARY | 2024-04-26 02:58 | XMS_ITS | Encounter Summary ---
Author Organization [facility] Address [address] [place] [address] Phone Care Team Providers Care Plant Maintenance Worker Name Role Phone Justen Gale MD Primary Care Provider [phone] Reason for Visit * Reason Comments Medication Refill Encounter Details Date Type Department Care Team (Late st Contact Info) Description 12/06/2021 Refill [facility] #2 [place] [address] Justen Gale MD #[address] [address] Medication Refill Social History Tobacco Use Types [...] suspected to have Coronavirus/COVID-19? No / Unsure 11/09/2021 5:18 PM CDT documented as of this encounter Miscellaneous Notes * Telephone Encounter - Justen Gale MD - 12/07/2021 11:37 AM CDT approved * Telephone Encounter - Marlys Anderson RN - 12/07/2021 11:27 AM CDT Medication failed the protocol, provider to review and approve the medication order if appropriate. Requested Prescriptions Pending Prescriptions Disp Refills Lantus SoloStar 100 UNIT/ML Solution Pen-injector [Pharmacy Med Name: LANTUS SOLOSTAR PEN INJ 3ML] 45 mL 1 Sig: ADMINISTER 50 UNITS UNDER THE SKIN EVERY MORNING Not Delegated - Insulin Protocol Failed - 12/06/2021 10:00 PM Failed - This refill cannot be delegated Passed - Visit with relevant provider in past 12 months or upcoming 90 days Recent Visits Date Type Provider Dept 11/09/21 Office Visit Pili Elkins APRN, NETTA [facility] 10/08/21 Office Visit Angelito Alegria APRN, CNP [facility] 08/30/21 Office Visit Justen Gale MD [facility] Showing recent visits within past 365 days and meeting all other requirements Today's Visits Date Type Provider Dept 12/07/21 Appointment Pili Elkins APRN, NETTA [facility] Showing today's visits and meeting all other requirements Future Appointments No visits were found meeting these conditions. Showing future appointments within next 90 days and meeting all other requirements documented in this encounter Plan of Treatment Upcoming Encounters Date Type Department Care Team (Late st Contact Info) Description 05/17/2024 2:45 PM PET STYLIST Office Visit [facility] - Endocrinology - [place] #2 [place] [address] Annel Rod MD #[address] [address] documented as of this encounter Visit Diagnoses Not on filedocumented in this encounter Additional Health Concerns Assessment Noted Time PHQ-9 Depression Total Score: 0 07/21/19 21 3:00 PM CDT documented as of this encounter Care Teams Plant Maintenance Worker Relationship Specialty Start Date End Date Justen Gale MD #[address] [address] PCP - General Family Medicine 10/17/17 documented as of this encounter
--- OUTSIDE RECORDS SUMMARY | 2024-04-26 02:58 | XMS_ITS | Encounter Summary ---
Author Organization [facility] Address [address] [place] [address] Phone Care Team Providers Care Retail Advertising Sales Manager Name Role Phone Justen Gale MD Primary Care Provider [phone] Reason for Referral * PT/OT/ST (Less Than 1 Week) - Closed Specialty Diagnoses / Procedures Referred By Contac t Referred To Contact Diagnoses Chronic sore throat Pili Elkins APRN, AUTOMATIC LUMP MAKING MACHINE TENDER #[address] [address] Phone: tel: fax: Nader Uriostegui MD [address] [place] [address] Phone: tel: fax: Referral ID Status Reason Start Date Expiration Date Visits Re quested Visits Authorized [id number] Closed 12/07/2021 1 1 Scheduling Instructions Karly is being referred to other specialist in patient's insurance network for sore throat since intubation, troubling swallowing. See below for Karly's current medications, allergies [...] PER DAY, Disp: 45 mL, Rfl: 1 Insulin Pen Needle (B-D [...] Liquid, as needed, Disp: , Rfl: nystatin 699205 UNIT/GM Powder, APPLY TO THE AFFECTED AREA [...] Thyroid nodule Reason for Visit * Reason Comments Follow-up Patient has a sore t hroat and her tongue is sore. Encounter Details Date Type Department Care Team (Late st Contact Info) Description 12/07/2021 1:45 PM CDT Office Visit [facility] #2 [place] [address] Pili Elkins APRN, NETTA #[address] [phone] Chronic sore throat (Primary Dx); Infection of deep incisional surgical site after procedure, subsequent encounter Discharge Disposition: Discharged to home or Selfcare [...] Sign Reading Time Taken Comments Blood Pressure 112/74 12/07/2021 1:50 PM CDT Pulse 105 12/07/2021 1:50 PM CDT Temperature 36.9 ??C (98.5 ??F) 12/07/2021 1:50 PM CD T Respiratory Rate 16 12/07/2021 1:50 PM CDT Oxygen Saturation 98% 12/07/2021 1:50 PM CDT Inhaled Oxygen Concentration - - Weight 130.5 kg (287 lb 11.2 oz) 12/07/2021 1:50 PM CDT Height 154.9 cm (5' 1 ) 12/07/2021 1:50 PM CDT Body Mass Index 54.36 12/07/2021 1:50 PM CDT documented in this encounter Progress Notes * Jane Hawkins - 12/07/2021 1:45 PM CDT Karly Marques, 66 y.o., female is here for Follow-up (Patient has a sore throat and her tongue is sore.) Medication Refills: Patient reports/denies need for medication refills. Orders Pended: no Requested Prescriptions No prescriptions requested or ordered in this encounter Home Medications Medication Sig Start Date End Date Taking? Authorizing Provider acetaminophen (TYLENOL) 500 MG Tablet Take 500 mg by mouth. Patient not taking: Reported on 12/07/2021 11/16/21 Tyler Smith MD amitriptyline (ELAVIL) 25 MG Tablet nightly. 02/18/19 Yes Tyler Smith MD Blood Glucose Monitoring Suppl Device Diagnosis: Diabetes Type 2 Blood testing frequency: 4 times aday 11/21/17 Yes Justen Gale MD Clindamycin HCl (CLEOCIN) 300 MG Capsule Take 300 mg by mouth 3 times daily. Indications: Infectionof the Skin and/or Soft Tissue Patient not taking: No sig reported Tyler Smith MD enoxaparin (LOVENOX) 40 MG/0.4ML Solution Prefilled Syringe 40 mg by Subcutaneous route. Patient not taking: No sig reported 08/19/21 Tyler Smith MD ertapenem (INVanz) 1 g Recon Soln 11/04/21 Yes Tyler Smith MD exemestane (AROMASIN) 25 [...] and instructions: 02/25/19 Yes Justen Gale MD naloxone HCl (Narcan) 4 MG/0.1ML Liquid as needed 05/13/21 Tyler Smith MD nystatin 256444 UNIT/GM Powder APPLY TO THE AFFECTED AREA THREE TIMES DAILY FOR 14 DAYS 11/09/21 YesTyler Smith MD OneTouch Delica Lancets 33G Misc 1 Lancet by Does not apply route 4 times daily. 03/09/21 Yes Annel Rod MD oxybutynin (DITROPAN) 5 MG Tablet Take 1 Tablet by mouth 2 times daily. 10/13/20 Yes Justen Gale MD oxyCODONE 10 MG Tablet 11/06/21 Tyler Smith MD pantoprazole (PROTONIX) 40 MG Tablet Delayed Response Take 1 Tablet by mouth daily. 11/09/21 Yes Pili Elkins APRN, NETTA rivaroxaban (XARELTO) 20 MG Tablet Take 20 [...] Planning and HCC * Pili Elkins APRN, CNP - 12/07/2021 1:45 PM CDT [facility] [address] Dept: [phone] Dept Loc: [phone] Loc Patient: Karly Marques : 1955 Sex: female Subjective Subjective: HPI: Karly Marques presents for Follow-up (Patient has a sore throat and her tongue is sore.) . Patient presents today for hospital follow up DVT due to PICC insertion and complaints of sore throat since August. She has been battling issues since having a spinal cord stimulator placed and then subsequently removed due to infection. She had the PICC removed and replaced. She reports the pain has subsided and she feels much improved. She saw [...] Pantoprazole. No cough,no rhinorrhea, no PND. Past Medical History Positives Diagnosis Date ??? [...] by mouth. (Patient not taking: Reported on 12/07/2021) ??? amitriptyline (ELAVIL) 25 MG Tablet nightly. ??? Blood Glucose Monitoring Suppl Device Diagnosis: Diabetes Type 2 Blood testing frequency: 4 times a day 1 Each 0 ??? Clindamycin HCl (CLEOCIN) 300 MG Capsule Take 300 mg by mouth 3 times daily. Indications: Infection of the Skin and/or Soft Tissue (Patient not taking: No sig reported) ??? enoxaparin (LOVENOX) 40 MG/0.4ML Solution Prefilled Syringe 40 mg by Subcutaneous route. (Patient not taking: No sig reported) ??? ertapenem (INVanz) 1 g Recon Soln ??? exemestane (AROMASIN) 25 MG Tablet Take [...] MG/dL, MAX OF 120 UNITS PER DAY 45 mL 1 ??? Insulin Pen Needle (B-D [...] Supply and instructions: 1 Each 0 ??? naloxone HCl (Narcan) 4 MG/0.1ML Liquid as needed ??? nystatin 104823 UNIT/GM Powder APPLY TO THE AFFECTED AREA THREE TIMES DAILY FOR 14 DAYS ??? OneTouch Delica Lancets 33G Misc 1 Lancet by Does not apply route 4 times daily. 400 Lancet 3 ??? oxybutynin (DITROPAN) 5 MG Tablet Take 1 Tablet by mouth 2 times daily. 180 Tablet 3 ??? oxyCODONE 10 MG Tablet (Patient not taking: No sig reported) ??? pantoprazole (PROTONIX) 40 MG Tablet Delayed Response Take 1 Tablet by mouth daily. 90 Tablet 1 ??? rivaroxaban (XARELTO) 20 [...] (see Comments) ??? Macrobid [Nitrofurantoin] Itching ??? Lisinopril Swelling ??? Medical Adhesive Remover Rash ??? Oxycodone Unknown ??? Reglan [Metoclopramide Hcl] Unknown ??? Reslizumab Unknown ??? Ketorolac Itching ??? Pregabalin Other (see Comments) ??? Trazodone Other (see Comments) Shaky, restlessness, itching, throat swelling Past Surgical History: Procedure Laterality Date ??? MASTECTOMY BILATERAL Bilateral 2015 ??? BREAST SURGERY ??? CHOLECYSTECTOMY ??? LAP,INGUINAL HERNIA REPR,INITIAL Review of Systems Constitutional: Positive for appetite change and fatigue. Negative for activity change, chills, diaphoresis and fever. HENT: Positive for sore throat. Negative for congestion, dental problem, drooling, ear discharge, ear pain, facial swelling, hearing loss, mouth sores, nosebleeds, postnasal drip, rhinorrhea, sinus pressure, sinus pain, sneezing, tinnitus, trouble swallowing and voice change. Eyes: Negative for pain and redness. Respiratory: Negative for cough, choking, chest tightness, shortness of breath and wheezing. Cardiovascular: Negative for chest pain and palpitations. Gastrointestinal: Positive for diarrhea and nausea. Negative for constipation and vomiting. Genitourinary: Negative for decreased urine volume and urgency. Musculoskeletal: Positive for back pain and myalgias. Neurological: Positive for weakness (generalized ). Negative for dizziness, light-headedness and headaches. Objective Objective: BP 112/74 (BP Location: Left Arm, BP Position: Sitting, BP Cuff Size: Large) Pulse 105 Temp 98.5 ??F (36.9 ??C) (Temporal) Resp 16 Ht 5' 1 (1.549 m) Wt 287 lb 11.2 oz (130.5 kg) SpO2 98% BMI 54.36 kg/m?? Physical Exam Vitals and nursing note reviewed. Constitutional: General: She is not in acute distress. Appearance: Normal appearance. She is well-developed. She is obese. She is not diaphoretic. HENT: Head: Normocephalic and atraumatic. Right Ear: Tympanic membrane, ear canal and external ear normal. Left Ear: Tympanic membrane, ear canal and external ear normal. Nose: Nose normal. Mouth/Throat: Mouth: Mucous membranes are moist. Pharynx: Oropharynx is clear. Posterior oropharyngeal erythema present. No oropharyngeal exudate. Eyes: Conjunctiva/sclera: Conjunctivae normal. Pupils: [...] is no guarding or rebound. Musculoskeletal: General: No deformity or signs of injury. Cervical back: Normal range of motion and neck supple. No tenderness. Lymphadenopathy: Cervical: No cervical adenopathy. Skin: General: Skin is warm and dry. Findings: No erythema or rash. Comments: PICC to RUE Healing incision to right lower back Neurological: General: No focal deficit present. Mental Status: She is alert and oriented to person, place, and time. Mental status is at baseline. Cranial Nerves: No cranial nerve deficit. Gait: Gait abnormal (antalgic gait, ambulates with a cane). Psychiatric: Mood and Affect: Mood normal. Behavior: Behavior normal. Thought Content: Thought content normal. Judgment: Judgment normal. XR CHEST 2VW Result Date: 11/11/2021 FINDINGS/IMPRESSION: Lines: *Right upper terminate PICC terminates in the SVC. *Electronic device superimposes thoracic spine with inferior approach lead. There is mild vascular congestion with bibasilar atelectasis. There is no focal consolidation, pleural effusion, or pneumothorax. The cardiomediastinal silhouette is normal. The visible bony thorax is intact. Report dictated by David Charlton MD, PhD (vice president of contracts). I, Dr. VI JENNINGS have personally reviewed and interpreted thisexamination/study. This report was electronically signed by VI JENNINGS on 11/11/2021 11:[address] ANGIO [...] the phone with Dr. Perkins by Dr. Jennings on 11/12/2021, 8:58 AM with readback confirmation. Report drafted by Amaodr Lopez (resident) I, Dr. VI JENNINGS have personally reviewed and interpreted this examination/study. This report was electronically signed by VI JENNINGS on 11/12/2021 8:59 AM . Medical Decision Making: Assessment & Plan Diagnoses and all orders for this visit: Chronic sore throat - EXTERNAL ENT REFERRAL; Future - nystatin (MYCOSTATIN) 352782 UNIT/ML Suspension; Take 5 mL by mouth 4 times daily for 10 days. Apply to inside of each cheek. Infection of deep incisional surgical site after procedure, subsequent encounter Other orders - nystatin 403061 UNIT/GM Powder; APPLY TO THE AFFECTED AREA THREE TIMES DAILY FOR 14 DAYS - naloxone HCl (Narcan) 4 MG/0.1ML Liquid; as needed - acetaminophen (TYLENOL) 500 MG Tablet; Take 500 mg by mouth. (Patient not taking: Reported on 12/07/2021) Will send patient to ENT for further evaluation. Could be fungal due to multiple antibiotic use or could be from intubation. Will go ahead and treat her for oral candidiasis as her mouth is very red and complaints of burning sensation. Otherwise defer to surgeon and ID for continued management of sepsis. Patient agreeable to plan. documented in this encounter Plan of Treatment Upcoming Encounters Date Type Department Care Team (Late st Contact Info) Description 05/17/2024 2:45 PM SEED EXPERT Office Visit [facility] - Endocrinology - [place] #2 [place] [address] Annel Rod MD #2 [facility] [address] [place] [address] documented as of this encounter Procedures Procedure Name Priority Date/Time Associated Diagnosis Comments EXTERNAL ENT REFERRAL Less Than 1 week 12/14/2021 12:00 AM CDT Chronic sore throat documented in this encounter Results * EXTERNAL ENT REFERRAL (12/14/2021 12:00 AM CDT) 12/14/2021 Pili Elkins MANAGER BUSINESS BANKING, AUTOMATIC LUMP MAKING MACHINE TENDER OUTPT REFERRALS EXT/ INT Final Result SCAN documented in this encounter Visit Diagnoses Diagnosis Chronic sore throat- Primary Chronic pharyngitis Infection of deep incisional surgical site after procedure, subsequent encounter documented in this encounter Additional Health Concerns Assessment Noted Time PHQ-9 Depression Total Score: 0 07/21/19 21 3:00 PM CDT documented as of this encounter Care Teams Retail Advertising Sales Manager Relationship Specialty Start Date End Date Justen Gale MD #2 [facility] [address] [place] [address] PCP - General Family Medicine 10/17/17 documented as of this encounter
--- OUTSIDE RECORDS SUMMARY | 2024-04-26 02:58 | XMS_ITS | Encounter Summary ---
Author Organization [facility] Address [address] [place] [address] Phone Care Team Providers Care Bus Driver Supervisor Name Role Phone Justen Gale MD Primary Care Provider [phone] Reason for Visit * Reason Onset Date Comments Appointment 11/01/2021 Encounter Details Date Type Department Care Team (Late st Contact Info) Description 11/01/2021 Telephone [facility] [address] [place] [address] Justen Gale MD #[address] [address] Appointment Social History Tobacco Use Types Packs/Day [...] Miscellaneous Notes * Telephone Encounter - Damon Mullins, RN - 11/01/2021 9:13 AM CDT Patient calling stating she missed appointment today she is in [facility] with sepsis from UTI, on IV antibiotics. Patient is unsure how long she will be in the hospital. Patient went to the hospital due to fever being 105, WBC was 22,000 when she arrived Wanted pcp to be aware documented in this encounter Plan of Treatment Upcoming Encounters Date Type Department Care Team (Late st Contact Info) Description 05/17/2024 2:45 PM SHIP YARD ELECTRICAL PERSON Office Visit [facility] - Endocrinology [facility] #2 [place] [address] Annel Rod MD #2 [facility] [address] [place] [address] documented as of this encounter Visit Diagnoses Not on filedocumented in this encounter Additional Health Concerns Assessment Noted Time PHQ-9 Depression Total Score: 0 07/21/19 21 3:00 PM CDT documented as of this encounter Care Teams Bus Driver Supervisor Relationship Specialty Start Date End Date Justen Gale MD #2 [facility] [address] [place] [address] PCP - General Family Medicine 10/17/17 documented as of this encounter
--- OUTSIDE RECORDS SUMMARY | 2024-04-26 02:58 | XMS_ITS | Encounter Summary ---
Author Organization [facility] Address [address] [place] [address] Phone Care Team Providers Care Unloading Checker Name Role Phone Justen Gale MD Primary Care Provider [phone] Reason for Visit * Reason Onset Date Comments Follow-up 10/12/2021 Medication Management 10/12/2021 Encounter Details Date Type Department Care Team (Late st Contact Info) Description 10/12/2021 Telephone [facility] Family [facility] #2 [place] [address] Justen Gale MD #[address] [address] Follow-up; Medication Management Social History Tobacco Use Types [...] Telephone Encounter - Stacy Huang RN - 10/13/2021 2:46 PM CDT Called and let her know to finish out the Bactrim and see how she feels after that * Telephone Encounter - Angelito Alegria APRN, CNP - 10/13/2021 2:[address] Gale wants her to continue the Bactrim * Telephone Encounter - Tamika Nunez RN - 10/13/2021 2:29 PM CDT Patient calling office back Patient states that if the antibiotic is resistant to the type of UTI she has then she did not wantto continue the antibiotic -she was wondering what you recommend besides going to Emergency Department because she states she is feeling a little better * Telephone Encounter - Angelito Alegria APRN, CNP - 10/13/2021 10:45 AM CDT FYI for patient * Telephone Encounter - Angelito Alegria APRN, CNP - 10/13/2021 10:30 AM CDT I'm not sure what to do for this person's UTI. I had started her on Bactrim originally, but the culture came back resistant so I switched her to Macrobid. Which she had a reaction to. Seems like she is allergic to other options like cephalosporins and only other would be IV meds. Do you want her tojust continue Bactrim as long as she is feeling better? * Telephone Encounter - Minal Lechuga RN - 10/13/2021 10:20 AM CDT Patient reports she is doing better today. She did not get the message to go to EMERGENCY DEPARTMENT. Patient was switched back to sulfamethoxazole-which culture susceptibility shows is resistant. Please advise. * Telephone Encounter - Stacy Huang RN - 10/13/2021 9:03 AM CDT LVM for patient to call back. * Telephone Encounter - Justen Gale MD - 10/12/2021 5:54 PM CDT Please call. Go to ed documented in this encounter Plan of Treatment Upcoming Encounters Date Type Department Care Team (Late st Contact Info) Description 05/17/2024 2:45 PM SENIOR ENGINEERING ASSOCIATE Office Visit [facility] - Endocrinology [facility] #2 [place] [address] Annel Rod MD #2 [facility] [address] [place] [address] documented as of this encounter Visit Diagnoses Not on filedocumented in this encounter Additional Health Concerns Assessment Noted Time PHQ-9 Depression Total Score: 0 07/21/19 3:00 PM CDT documented as of this encounter Care Teams Unloading Checker Relationship Specialty Start Date End Date Justen Gale MD #2 [facility] [address] [place] [address] PCP - General Family Medicine 10/17/17 documented as of this encounter
--- OUTSIDE RECORDS SUMMARY | 2024-04-26 02:58 | XMS_ITS | Encounter Summary ---
Author Organization [facility] [employer] Care Team Providers Care Flumer Name Role Phone Justen Gale MD Primary Care Provider [phone] Encounter Details Date Type Department Care Team (Latest Contact Info) Description 11/09/2021 Travel Social History Tobacco Use Types Packs/Day [...] st Contact Info) Description 05/17/2024 2:45 PM FAMILY RESOURCE COORDINATOR Office Visit [facility] - Endocr[facility] - [place] #2 [place] [address] Annel Rod MD #[address] [address] documented as of this encounter Visit Diagnoses Not on filedocumented in this encounter Additional Health Concerns Assessment Noted Time PHQ-9 Depression Total Score: 0 07/21/19 21 3:00 PM CDT documented as of this encounter Care Teams Flumer Relationship Specialty Start Date End Date uJsten Gale MD #2 [place] [address] PCP - General Family Medicine 10/17/17 documented as of this encounter
--- OUTSIDE RECORDS SUMMARY | 2024-04-26 02:58 | XMS_ITS | Encounter Summary ---
Author Organization [employer] Care Team Providers Care Ladderman Name Role Phone Justen Gale MD Primary Care Provider [phone] Encounter Details Date Type Department Care Team (Latest Contact Info) Description 10/08/2021 Travel Social History Tobacco Use Types Packs/Day [...] st Contact Info) Description 05/17/2024 2:45 PM EVP GENERAL COUNSEL Office Visit [facility] - Endocr[facility]ology - [place] #2 [place] [address] Annel Rod MD #[address] [address] documented as of this encounter Visit Diagnoses Not on filedocumented in this encounter Additional Health Concerns Assessment Noted Time PHQ-9 Depression Total Score: 0 07/21/19 21 3:00 PM CDT documented as of this encounter Care Teams Ladderman Relationship Specialty Start Date End Date Justen Gale MD #2 [place] [address] PCP - General Family Medicine 10/17/17 documented as of this encounter
--- OUTSIDE RECORDS SUMMARY | 2024-04-26 02:58 | XMS_ITS | Encounter Summary ---
Author Organization [facility] Address [address] [facility] [place] [address] Phone Care Team Providers Care Insurance Defense Attorney Name Role Phone Justen Gale MD Primary Care Provider [phone] Reason for Visit * Reason Onset Date Comments Urinary Tract Infection 10/07/2021 Encounter Details Date Type Department Care Team (Late st Contact Info) Description 10/07/2021 Nurse Triage [facility] [address] [place] [address] Justen Gale MD #[address] [address] Urinary Tract Infection Social History Tobacco Use Types Packs/Day Years [...] encounter Miscellaneous Notes * Telephone Encounter - Sakshi Gardner RN - 10/07/2021 8:21 PM CDT SITUATION (caller perception/concerns): Urinary symptoms BACKGROUND (events leading up to call): Patient had UTI that went to Kidneys about a month ago. Shewas hospitalized and placed on Abx Then she had back surgery 10 days ago. She has an infection in one of the surgical incisions and was started on Clindamycin today. She advises that she is susceptible to UTI's. ASSESSMENT: Today she is calling with complaints of urinary frequency, pain with urination and blood in urine. Urine is concentrated. She has chills and is nauseated. Patient states she goes from being hot to cold. Unknown if she has a fever-she has not taken her temperature. She is having back pain, but is unsure of whether it is related to her recent surgery or if it is related to kidneys. She advises she is able to urinate, but she doesn't have much output each time she goes, and she goes frequently. Gave home care advice related to urinary pain: *Warm saline sitz bath (patient advised she is not cleared from back surgery yet to soak in a bath.) *Increase water intake *Drink Cranberry juice or lemonade. *Tylenol or Ibuprofen for pain Patient needs to be seen within 24 hours. Appointment made for tomorrow afternoon. Appointment information verified by caller with read back and will need a wheelchair to access the office. Medications and allergies reviewed. RECOMMENDATION: See PCP within 24 hours. Appointment made for tomorrow afternoon. Patient agrees with disposition and will call back with worsening sympoms, questions or concerns. See care advice and disposition for guideline. First positive answer recorded; all responses to prior questions were negative. If symptoms increase, change, or if new symptoms develop, call your HCP or call back. Recommendation based on caller information and is not a diagnosis. Verified and reviewed all triage information with caller. Caller verbalized understanding of information given and denies further questions. Teach-back method utilized. Reason for Disposition ? ? > 2 UTI's in last year ??? Blood in urine (red, pink, or tea-colored) Protocols used: URINATION PAIN - FEMALE-A-AH documented in this encounter Plan of Treatment Upcoming Encounters Date Type Department Care Team (Late st Contact Info) Description 05/17/2024 2:45 PM COATER HAND Office Visit [facility] - Endocrinology - [place] [address] [place] [address] Annel Rod MD #2 [facility] [address] [place] [address] documented as of this encounter Visit Diagnoses Not on filedocumented in this encounter Additional Health Concerns Assessment Noted Time PHQ-9 Depression Total Score: 0 07/21/19 21 3:00 PM CDT documented as of this encounter Care Teams Insurance Defense Attorney Relationship Specialty Start Date End Date Justen Gale MD #2 [facility] [address] [place] [address] PCP - General Family Medicine 10/17/17 documented as of this encounter
--- OUTSIDE RECORDS SUMMARY | 2024-04-26 02:58 | XMS_ITS | Encounter Summary ---
Author Organization [facility] Address [address] [place] [address] Phone Care Team Providers Care Home Based Assistant Name Role Phone Justen Gale MD Primary Care Provider [phone] Reason for Visit * Reason Onset Date Comments Skin Problem 11/06/2021 Encounter Details Date Type Department Care Team (Late st Contact Info) Description 11/06/2021 Nurse Triage [facility] [address] [place] [address] Justen Gale MD #[address] [address] Skin Problem Social History Tobacco Use Types Packs/Day [...] Telephone Encounter - Leah Garcia RN - 11/06/2021 8:32 PM CDT SITUATION: reddened skin, itching, buring BACKGROUND: Patient hospitalized for Sepsis and UTI on 10/30/21 Discharged on 11/06/21 ASSESSMENT: Symptom Description / Location: reports the skin under pannus is brigh red, itchy and burning the redness is luz going down my leg on the Left side Denies drainage or open areas Was present present before discharge but it seems to be getting worse on 11/06/21 Pain (0-10): 4/10 Temp: denies Treatment / Response: nothing RECOMMENDATION: See care advice and disposition for Guideline First positive answer recorded, all responses to prior questions were negative. If symptoms increase, change or if new symptoms develop, call your HCP or call back. Recommendations were based on caller information and is not a diagnosis. Verified and reviewed all triage information with caller. Reason for Disposition ??? Localized rash also present ??? Red, moist, irritated area between skin folds (or under larger breasts) Protocols used: ITCHING - [id number]-U-AP, RASH OR REDNESS - [id number]-HA Home care advice given and patient verbalized understanding Hospital follow up appt made for 11/09/21 and confirmed with patient Provider notification documented in this encounter Plan of Treatment Upcoming Encounters Date Type Department Care Team (Late st Contact Info) Description 05/17/2024 2:45 PM DEPUTY REGISTER OF DEEDS Office Visit [facility] - Endocrinology - [place] [address] [place] [phone] Annel Rod MD #[address] [phone] documented as of this encounter Visit Diagnoses Not on filedocumented in this encounter Additional Health Concerns Assessment Noted Time PHQ-9 Depression Total Score: 0 07/21/19 21 3:00 PM CDT documented as of this encounter Care Teams Home Based Assistant Relationship Specialty Start Date End Date Justen Gale MD #[address] [place] [id number] PCP - General Family Medicine 10/17/17 documented as of this encounter
--- OUTSIDE RECORDS SUMMARY | 2024-04-26 02:58 | XMS_ITS | Encounter Summary ---
Author Organization [facility] Address [address] [place] [address] Phone Care Team Providers Care Patrol Agent Name Role Phone Justen Gale MD Primary Care Provider [phone] Reason for Visit * Reason Onset Date Comments Allergic Reaction 10/12/2021 Encounter Details Date Type Department Care Team (Late st Contact Info) Description 10/12/2021 Nurse Triage [facility] [address] [place] [address] Justen Gale MD #[address] [address] Allergic Reaction Social History Tobacco Use Types [...] encounter Miscellaneous Notes * Telephone Encounter - Shikha Blake RN - 10/12/2021 10:05 AM CDT SITUATION: Rash worsening BACKGROUND: Onset 10/11 after starting Macrobid. Patient had called in previously but stated the rash is getting worse ASSESSMENT: Symptom Description / Location: Rash located from thumb to above elbow on underside of arm, midlinespine and legs. Flat splotches that are itching. Arms feel hot and burning, scalp is very itchy. Denies purple colored spots or swelling. Pain (0-10): denies Temp: denies Treatment / Response: benadryl and cool shower-no relief RECOMMENDATION: See care advice and disposition for Guideline To be seen today. Symptomatic treatment education given. Directed caller on symptoms to monitor andwhen to call back All Patient Appointments Provider Department Dept Phone 10/12/2021 1:00 PM Justen Gale [facility] - Family Medicine [facility] [phone] First positive answer recorded, all responses to prior questions were negative. If symptoms increase, change or if new symptoms develop, call your HCP or call back. Recommendations were based on caller information and is not a diagnosis. Verified and reviewed all triage information with caller. Reason for Disposition ??? Hives or itching Protocols used: RASH - WIDESPREAD ON DRUGS - DRUG [id number] documented in this encounter Plan of Treatment Upcoming Encounters Date Type Department Care Team (Late st Contact Info) Description 05/17/2024 2:45 PM PLAYGROUND EQUIPMENT ERECTOR Office Visit [facility] - Endocrinology - [place] [address] [place] [address] Annel Rod MD #[address] [phone] documented as of this encounter Visit Diagnoses Not on filedocumented in this encounter Additional Health Concerns Assessment Noted Time PHQ-9 Depression Total Score: 0 07/21/19 21 3:00 PM CDT documented as of this encounter Care Teams Patrol Agent Relationship Specialty Start Date End Date Justen Gale MD #[address] [place] [id number] PCP - General Family Medicine 10/17/17 documented as of this encounter
--- OUTSIDE RECORDS SUMMARY | 2024-04-26 02:58 | XMS_ITS | Encounter Summary ---
Author Organization [facility] Address [address] [place] [address] Phone Care Team Providers Care Shellfish Processing Machine Tender Name Role Phone Justen Gale MD Primary Care Provider [phone] Reason for Referral * Consult, Test & Initiate Treatment (Less Than 4 Weeks) - Canceled Specialty Diagnoses / Procedures Referred By Contac t Referred To Contact Urology Diagnoses Frequent UTI Pili Elkins APRN, CNP [address] [address] Phone: tel: fax: [facility] [address] [place] [address] Phone: tel: fax: Referral ID Status Reason Start Date Expiration Date V isits Requested Visits Authorized [id number] Canceled 11/09/2021 1 1 Scheduling Instructions Karly is being referred for reoccurring uti. Please contact patient for scheduling questions or concerns. Reason for Visit * Reason Comments Post-Hospital Follow-up Patient was admi tted October 30, 2021 for sepsis. She states she is still feeling weak. Encounter Details Date Type Department Care Team (Late st Contact Info) Description 11/09/2021 5:30 PM CDT Office Visit [facility] - Family [facility] [address] [place] [address] Pili Elkins APRN, HOT PIPE GAUGER [address] [address] Sepsis due to Escherichia coli without acute organ dysfunction (HCC) (Primary Dx); Infection of deep incisional surgical site after procedure, subsequent encounter; Fungal rash of trunk; Frequent UTI Discharge Disposition: Discharged to home or Selfcare [...] Sign Reading Time Taken Comments Blood Pressure 108/72 11/09/2021 5:29 PM CDT Pulse 100 11/09/2021 5:29 PM CDT Temperature 36.6 ??C (97.8 ??F) 11/09/2021 5:29 PM CD T Respiratory Rate 16 11/09/2021 5:29 PM CDT Oxygen Saturation 97% 11/09/2021 5:29 PM CDT Inhaled Oxygen Concentration - - Weight 129.3 kg (285 lb) 11/09/2021 5:29 PM CDT Height 154.9 cm (5' 1 ) 11/09/2021 5:29 PM CDT Body Mass Index 53.85 11/09/2021 5:29 PM CDT documented in this encounter Patient Instructions * Patient Instructions* Christin Solomon RMA - 11/09/2021 5:30 PM CDT Pneumonia is a serious lung infection that can make you very sick. There are now two vaccines recommended by the Center for Disease Control and Prevention (CDC) to protect against pneumonia for all patients who are 65 years and older and patients under 65 with certain conditions that put them at a higher risk. Request your pneumonia vaccines at your Primary Care Physician???s office or your localpharmacy. documented in this encounter Progress Notes * Christin Solomon RMA - 11/09/2021 5:30 PM CDT Karly Montero Shelli, 66 y.o., female is here for Post-Hospital Follow-up Medication Refills: Patient reports/denies need for medication refills. Orders Pended: no Requested Prescriptions No prescriptions requested or ordered in this encounter Home Medications Medication Sig Start Date End Date Taking? Authorizing Provider amitriptyline (ELAVIL) 25 MG Tablet nightly. 02/18/19 Tyler Smith MD Blood Glucose Monitoring Suppl Device Diagnosis: Diabetes Type 2 Blood testing frequency: 4 times aday 11/21/17 Justen Gale MD Clindamycin HCl (CLEOCIN) 300 [...] Tablet Take 25 mg by mouth daily. Tyler Smith MD Glucose Blood (ONE TOUCH ULTRA TEST) Strip Test four times daily. 02/11/20 Annel Rod MD HYDROcodone-acetaminophen (NORCO) 7.5-325 MG Tablet TK 1 T PO QID PRN. DO NOT FILL UNTIL Tyler Smith MD Insulin Lispro, 1 Unit Dial, (HumaLOG KwikPen) 100 UNIT/ML Solution Pen-injector ADMINISTER 22 UNITS BEFORE EACH MEAL. ISF OF 1:15 IF >140 MG/dL, MAX OF 120 UNITS PER DAY 03/15/21 Annel Rod MD Insulin Pen Needle (B-D ULTRAFINE III SHORT PEN) 31G X 8 MM Misc USE 6 TIMES DAILY DIRECTED 06/23/21 Justen Gale MD Lantus SoloStar 100 UNIT/ML Solution Pen-injector ADMINISTER 50 UNITS UNDER THE SKIN EVERY MORNING 03/16/21 Justen Gale MD Misc. Devices Misc Supply and instructions: 09/09/20 Justen Gale MD Misc. Devices Misc Supply and instructions: Patient not taking: Reported on 11/06/2021 02/25/19 Justen Gale MD OneTouch Delica Lancets 33G Misc 1 Lancet by Does not apply route 4 times daily. 03/09/21 Annel Rod MD oxybutynin (DITROPAN) 5 MG Tablet Take 1 Tablet by mouth 2 times daily. 10/13/20 Justen Gale MD oxyCODONE 10 MG Tablet 11/06/21 Tyler Smith MD pantoprazole (PROTONIX) 40 MG Tablet Delayed Response 09/14/21 Tyler Smith MD rivaroxaban (XARELTO) 20 MG Tablet Take 20 mg by mouth daily. Tyler Smith MD rOPINIROLE (REQUIP) 5 MG Tablet TAKE 1 TABLET BY MOUTH EVERY NIGHT 03/15/21 Justen Gale MD tiZANidine (ZANAFLEX) 4 MG [...] have been addressed with the patient today: Pneumonia and mammogram. * Pili Elkins APRN, NETTA - 11/09/2021 5:30 PM CDT [facility] - [facility]ILY [facility] [address] [facility] [address] Dept: [phone] Dept Loc: [phone] Loc Patient: Karly Marques : 1955 Sex: female Subjective Subjective: HPI: Karly Marques presents for Post-Hospital Follow-up (Patient was admitted October 30, 2021 for sepsis. She states she is still feeling weak. ) . Patient presents today for hospital follow-up from October 30, 2021. Patient reports that her issues started when she had her spinal stimulator placed on September 17, [address] Lam. She reports recovery took approximately 6 weeks and she did have a UTI. She reports that they and of having to change it due to resistance. And then she had an allergic reaction. She was seen at [facility] and was prescribed a different medication. She reports that the next week the UTI have worsened and she had to take more the same antibiotics. Then on October 26 she became very ill and went to [facility] and was found have another to UTI. However she did not receive treatment at that time. Patient then went back to the hospital on October 29 to a fever of 105. She was diagnosed with sepsis due to infection with her stimulator. She then had to have a stimulator taking out on October 30. She was discharged on November 06. She is currently on IV antibiotic therapy for the next 6 weeks. She reports the PICC line is very uncomfortable and causing soreness and pulling in her left upper extremity. She does have home care but no PT or OT. She is seeing an infectious disease specialist. Her primary complaints is weakness, rash nausea, decreased appetite, and back pain. Past Medical History Positives Diagnosis Date ??? [...] Subcutaneous route. (Patient not taking: Reported on 11/22/2021) ??? ertapenem (INVanz) 1 g Recon Soln [...] Misc Supply and instructions: (Patient not taking: Reported on 11/06/2021) 1 Each 0 ??? OneTouch Delica Lancets 33G Misc 1 Lancet by Does not apply route 4 times daily. 400 Lancet 3 ??? oxybutynin (DITROPAN) 5 MG Tablet Take 1 Tablet by mouth 2 times daily. 180 Tablet 3 ??? oxyCODONE 10 MG Tablet (Patient not taking: No sig reported) ??? rivaroxaban (XARELTO) 20 MG Tablet Take [...] SURGERY ??? CHOLECYSTECTOMY ??? LAP,INGUINAL HERNIA REPR,INITIAL Social History Tobacco Use ??? Smoking status: Never Smoker ??? Smokeless tobacco: Never Used Vaping Use ??? Vaping Use: Never used Substance Use Topics ??? Alcohol use: No ??? Drug use: No Family History Problem Relation Age of Onset ??? Stroke Mother ??? Cancer Father Review of Systems Constitutional: Positive for activity change, appetite change and fatigue. Negative for chills, diaphoresis and fever. Respiratory: Negative for cough, chest tightness, shortness of breath and wheezing. Cardiovascular: Negative for chest pain and palpitations. Gastrointestinal: Positive for nausea. Negative for abdominal distention, abdominal pain, blood in stool, constipation, diarrhea and vomiting. Musculoskeletal: Positive for back pain and myalgias (LUE). Negative for arthralgias, gait problem,joint swelling, neck pain and neck stiffness. Skin: Positive for rash. Negative for wound. Neurological: Negative for dizziness, weakness, numbness and headaches. Objective Objective: BP 108/72 (BP Location: Right Arm, BP Position: Sitting, BP Cuff Size: Regular) Pulse 100 Temp 97.8 ??F (36.6 ??C) (Temporal) Resp 16 Ht 5' 1 (1.549 m) Wt 285 lb (129.3 kg) SpO2 97% BMI 53.85 kg/m?? Physical Exam Vitals and nursing note reviewed. Constitutional: General: She is not in acute distress. Appearance: Normal appearance. She is well-developed. She is obese. She is not diaphoretic. HENT: Head: Normocephalic and atraumatic. Right Ear: External ear normal. Left Ear: External ear normal. Mouth/Throat: Mouth: Mucous membranes are moist. Pharynx: Oropharynx is clear. Eyes: Conjunctiva/sclera: Conjunctivae [...] rebound. Hernia: No hernia is present. Musculoskeletal: Cervical back: Normal range of motion. Right lower leg: No edema. Left lower leg: No edema. Skin: General: Skin is warm and dry. Capillary Refill: Capillary refill takes less than 2 seconds. Findings: Rash present. Rash is macular (Groin and lower torso). Comments: Incision is well approximated without discharge or erythema. PICC LUE. No erythema or discharge. Neurological: General: No focal deficit present. Mental Status: She is alert and oriented to person, place, and time. Mental status is at baseline. Cranial Nerves: No cranial nerve deficit. Psychiatric: Mood and Affect: Mood normal. Behavior: Behavior normal. Thought Content: Thought content normal. Judgment: Judgment normal. Medical Decision Making: Assessment & Plan Diagnoses and all orders for this visit: Sepsis due to Escherichia coli without acute organ dysfunction (HCC) - pantoprazole (PROTONIX) 40 MG Tablet Delayed Response; Take 1 Tablet by mouth daily. Infection of deep incisional surgical site after procedure, subsequent encounter Fungal rash of trunk - nystatin [id number] UNIT/GM Powder; Apply 3 times daily for 14 days. Apply to affected area as directed. Frequent UTI - UROLOGY REFERRAL; Future Patient to continue follow-up with specialists as planned. Patient appears to have fungal rash to her torso. Nystatin powder ordered. Recommend patient see Urology due to recurrent UTI. Follow-up as scheduled PCP. documented in this encounter Plan of Treatment Upcoming Encounters Date Type Department Care Team (Late st Contact Info) Description 05/17/2024 2:45 PM GINGER FARMER Office Visit [facility] - Endocrinology - [place] [address] [place] [address] Annel Rod MD #[address] [address] Scheduled Referrals Name Type Priority Associated Diagnoses Order Schedule UROLOGY REFERRAL Outpatient Referral Less Than 4 weeks Frequent UTI Expected: 11/08/2022, Expires: 05/11/2023 documented as of this encounter Visit Diagnoses Diagnosis Sepsis due to Escherichia coli without acute organ dysfunction (HCC)- Primary Infection of deep incisional surgical site after procedure, subsequent encounter Fungal rash of trunk Frequent UTI Urinary tract infection, site not specified documented in this encounter Additional Health Concerns Assessment Noted Time PHQ-9 Depression Total Score: 0 07/21/19 21 3:00 PM CDT documented as of this encounter Care Teams Shellfish Processing Machine Tender Relationship Specialty Start Date End Date Justen Gale MD #[address] [address] PCP - General Family Medicine 10/17/17 documented as of this encounter
--- OUTSIDE RECORDS SUMMARY | 2024-04-26 02:58 | XMS_ITS | Encounter Summary ---
Author Organization [facility] Address [address] [place] [address] Phone Care Team Providers Care Therapist Occupational Name Role Phone Justen Gale MD Primary Care Provider [phone] Reason for Visit * Reason Onset Date Comments Vascular Access Problem 11/11/2021 Encounter Details Date Type Department Care Team (Late st Contact Info) Description 11/11/2021 Nurse Triage [facility] [address] [place] [address] Justen Gale MD #[address] [address] Vascular Access Problem Social History Tobacco Use Types Packs/Day [...] encounter Miscellaneous Notes * Telephone Encounter - Yris Khan RN - 11/11/2021 1:19 PM CDT SITUATION: Picc line BACKGROUND: 10/30/21 Hospital admission, came home with picc line ASSESSMENT: Symptom Description / Location: Right arm- picc line is causing pain Arm feels tight/painful Denies shortness of breath/chest pain, numbness/tingling Pain (0-10): 5/10 Temp: Denies fever Treatment / Response: RECOMMENDATION: See care advice and disposition for Guideline Advised patient to go to ED. Voices understanding and is agreeable. Allergies, medications, and pharmacy verified Assistive Devices verified First positive answer recorded, all responses to prior questions were negative. If symptoms increase, change or if new symptoms develop, call your HCP or call back. Recommendations were based on caller information and is not a diagnosis. Verified and reviewed all triage information with caller. Reason for Disposition ??? Arm is swollen, new-onset (or leg swelling if IV in lower extremity) Protocols used: IV SITE (SKIN) [id number] documented in this encounter Plan of Treatment Upcoming Encounters Date Type Department Care Team (Late st Contact Info) Description 05/17/2024 2:45 PM GROUNDSKEEPING MAINTENANCE WORKER Office Visit [facility] - Endocrinology - [place] #2 [place] [phone] Annel Rod MD #2 [facility] [address] [place] [address] documented as of this encounter Visit Diagnoses Not on filedocumented in this encounter Additional Health Concerns Assessment Noted Time PHQ-9 Depression Total Score: 0 07/21/19 21 3:00 PM CDT documented as of this encounter Care Teams Therapist Occupational Relationship Specialty Start Date End Date Justen Gale MD #2 [facility] [address] [place] [address] PCP - General Family Medicine 10/17/17 documented as of this encounter
--- OUTSIDE RECORDS SUMMARY | 2024-04-26 02:58 | XMS_ITS | Encounter Summary ---
Author Organization [facility] Address [address] [place] [address] Phone Care Team Providers Care Wheel Lacer And Truer Name Role Phone Justen Gale MD Primary Care Provider [phone] Reason for Visit * Reason Comments Medication Refill Encounter Details Date Type Department Care Team (Late st Contact Info) Description 12/03/2021 Refill [facility] #2 [place] [address] Justen Gale MD #[address] [address] Medication Refill Social History Tobacco Use Types [...] Telephone Encounter - Tamika Villarreal RN - 12/03/2021 10:18 AM CDT Medication(s) refilled and signed per [facility] Chronic Medication Refill Standing Order for Pediatricand Adult Patients. Requested Prescriptions Pending Prescriptions Disp Refills ??? rOPINIROLE (REQUIP) 5 MG Tablet [Pharmacy Med Name: ROPINIROLE 5MG TABLETS] 90 Tablet 2 Sig: TAKE 1 TABLET BY MOUTH EVERY NIGHT Antiparkinson Dopaminergics and COMT Protocol Passed - 12/03/2021 4:00 AM Passed - Visit with relevant provider in the past 9 months or upcoming 90 days Recent Visits Date Type Provider Dept 11/09/21 Office Visit Piil Elkins APRN, NETTA [facility] 10/08/21 Office Visit Angelito Alegria APRN, CNP [facility] 08/30/21 Office Visit Justen Gale MD [facility] Showing recent visits within past 270 days and meeting all other requirements Future Appointments Date Type Provider Dept 12/07/21 Appointment Pili Elkins APRN, NETTA [facility] Showing future appointments within next 90 days and meeting all other requirements Passed - Blood pressure on record in past 12 months Clinician-entered: BP Readings from Last 3 Encounters: 11/09/21 108/72 10/08/21 136/66 08/30/21 122/88 Patient-entered: No data recorded documented in this encounter Plan of Treatment Upcoming Encounters Date Type Department Care Team (Late st Contact Info) Description 05/17/2024 2:45 PM TREE KILLER Office Visit [facility] - [place] [address] [place] [address] Annel Rod MD #[address] [address] documented as of this encounter Visit Diagnoses Not on filedocumented in this encounter Additional Health Concerns Assessment Noted Time PHQ-9 Depression Total Score: 0 07/21/19 21 3:00 PM CDT documented as of this encounter Care Teams Wheel Lacer And Truer Relationship Specialty Start Date End Date Justen Gale MD #[address] [address] PCP - General Family Medicine 10/17/17 documented as of this encounter
--- OUTSIDE RECORDS SUMMARY | 2024-04-26 02:58 | XMS_ITS | Encounter Summary ---
Author Organization [facility] Address [address] [place] [address] Phone Care Team Providers Care Cytotechnologist/Histotechnologist Name Role Phone Justen Gale MD Primary Care Provider [phone] Reason for Visit * Reason Onset Date Comments Results 10/11/2021 Encounter Details Date Type Department Care Team (Late st Contact Info) Description 10/11/2021 Telephone [facility] #2 [place] [address] Angelito Alegria, SHANK PIECE TACKER, PRINCIPAL [employer] #[address] [address] Results Social History Tobacco Use Types [...] encounter Miscellaneous Notes * Telephone Encounter - Berenice Reyes RN - 10/11/2021 9:24 AM CDT Spoke with patient to inform * Telephone Encounter - Angelito Alegria APRN, CNP - 10/11/2021 8:28 AM CDT Please call patient. Bacteria is resistant to antibiotic. Sent different one for the patient. documented in this encounter Plan of Treatment Upcoming Encounters Date Type Department Care Team (Late st Contact Info) Description 05/17/2024 2:45 PM BROADCAST MAINTENANCE ENGINEER Office Visit [facility] - Endocr[facility]ology - [place] #2 [place] [address] Annel Rod MD #2 [facility] [address] [place] [address] documented as of this encounter Visit Diagnoses Not on filedocumented in this encounter Additional Health Concerns Assessment Noted Time PHQ-9 Depression Total Score: 0 07/21/19 21 3:00 PM CDT documented as of this encounter Care Teams Cytotechnologist/Histotechnologist Relationship Specialty Start Date End Date Justen Gale MD #2 [facility] [address] [place] [address] PCP - General Family Medicine 10/17/17 documented as of this encounter
--- OUTSIDE RECORDS SUMMARY | 2024-04-26 02:58 | XMS_ITS | Encounter Summary ---
Author Organization [facility] Address [address] [place] [address] Phone Care Team Providers Care Melter Helper Name Role Phone Justen Gale MD Primary Care Provider [phone] Reason for Visit * Reason Comments Nausea Urinary Tract Infection Possible Uti Encounter Details Date Type Department Care Team (Late st Contact Info) Description 01/03/2022 4:00 PM CDT Office Visit [facility] #2 [place] [address] Dannielle Berg, [facility] #2 [place] [address] UTI symptoms (Primary Dx); Nausea and vomiting, unspecified vomiting type; Type 2 diabetes mellitus with other specified complication, with long-term current use of insulin (HCC) Discharge Disposition: Discharged to home or Selfcare [...] Sign Reading Time Taken Comments Blood Pressure 132/84 01/03/2022 4:03 PM CDT Pulse 95 01/03/2022 4:03 PM CDT Temperature 36.1 ??C (96.9 ??F) 01/03/2022 4:03 PM CD T Respiratory Rate 18 01/03/2022 4:03 PM CDT Oxygen Saturation 96% 01/03/2022 4:03 PM CDT Inhaled Oxygen Concentration - - Weight 132.2 kg (291 lb 8 oz) 01/03/2022 4:03 PM CDT Height 154.9 cm (5' 1 ) 01/03/2022 4:03 PM CDT Body Mass Index 55.08 01/03/2022 4:03 PM CDT documented in this encounter Progress Notes * Juve Sylvia Ann - 01/03/2022 4:00 PM CDT Karly Marques, 66 y.o., female is here for Nausea and Urinary Tract Infection (Possible Uti ) Medication Refills: Patient reports/denies need for [...] Misc. Devices Misc Supply and instructions: 02/25/19 Justen Gale MD naloxone HCl (Narcan) 4 MG/0.1ML Liquid as needed 05/13/21 Tyler Smith MD nystatin 947967 UNIT/GM Powder APPLY TO THE AFFECTED AREA THREE TIMES DAILY FOR 14 DAYS 11/09/21 Tyler Paris MD OneTouch Delica Lancets 33G Misc 1 [...] mouth daily. 11/09/21 Yes Pili Elkins APRN, NURSE WOUND rivaroxaban (XARELTO) 20 MG Tablet Take 20 mg by mouth daily. Yes ProviderTyler MD rOPINIROLE (REQUIP) 5 MG Tablet TAKE 1 TABLET BY MOUTH EVERY NIGHT 12/03/21 Yes Justen Gale MD tiZANidine (ZANAFLEX) 4 MG Tablet 09/16/21 Provider, MD Tyler There are no discontinued [...] Lay series) 06/29/2021 ??? Influenza Immunization (1) 12/23/2021 Orders Pended: yes The following BPA's have been addressed with the patient today: Flu * Bianca Pulido RMA - 01/03/2022 4:00 PM CDT Karly presents today for immunization/ injection of flu vaccine ordered today 01/03/22 by Dannielle Foster It was administered to patient without incident. Patient tolerated it well. See immunizations/injections activity. * Dannielle Berg PAC - 01/03/2022 4:00 PM CDT Subjective: 3-4 days nausea This am small amount of blood in vomit, bright red Reviewed has history of sepsis from UTI and concerned infection as recently 12/22/21-12/26/21 admittedto hospital for sepsis from UTI Has appointment tomorrow with urologist Has abdominal discomfort Bowels moving Chronic pain, has pain pump that needs battery replaced Review of Systems Constitutional: Positive for fatigue. Negative for chills and fever. HENT: Negative for congestion and sore throat. Respiratory: Negative for cough. Chronic sob Cardiovascular: Negative for chest pain. Gastrointestinal: Positive for nausea and vomiting. Negative for constipation and diarrhea. Genitourinary: Negative for dysuria. Incomplete voiding Objective: Physical Exam Vitals reviewed. Constitutional: Appearance: Normal appearance. She is not ill-appearing. HENT: Head: Normocephalic and atraumatic. Eyes: General: Right eye: No discharge. Left eye: No discharge. Extraocular Movements: Extraocular movements intact. Cardiovascular: Rate and Rhythm: Normal rate and regular rhythm. Heart sounds: No murmur heard. Pulmonary: Effort: Pulmonary effort is normal. No respiratory distress. Breath sounds: Normal breath sounds. No wheezing. Skin: General: Skin is warm. Neurological: Mental Status: She is alert. Psychiatric: Mood and Affect: Mood normal. Assessment and Plan See Diagnoses, Orders, Follow-up, and Instructions .Diagnoses and all orders for this visit: UTI symptoms - POCT UA AUTOMATED W/O MICRO - URINALYSIS REFLEX IF INDICATED BY ABNORMAL RESULTS; Future Nausea and vomiting, unspecified vomiting type - AMYLASE; Future - LIPASE; Future - ondansetron (Zofran) 4 MG Tablet; Take 1 Tablet by mouth every 8 hours as needed for Nausea - 1stline. Type 2 diabetes mellitus with other specified complication, with long-term current use of insulin (HCC) - CMP (COMPREHENSIVE METABOLIC PANEL); Future - COMPLETE BLOOD COUNT (CBC) WITH DIFF; Future Other orders - INFLUENZA VACCINE QUAD IM - INFLUENZA (>3) IMMUNIZATION QUESTIONS Reviewed with patient urine dip in office without signs infection will send for urinalysis Labs as ordered rule out pancreatitis Rule out infection, elevated white count or anemia Rule out elevated liver enzymes Will follow up when labs resulted Given zofran If any worsening symptoms recommend go to ER documented in this encounter Plan of Treatment Upcoming Encounters Date Type Department Care Team (Late st Contact Info) Description 05/17/2024 2:45 PM HEAD PAPER TESTER Office Visit [facility] - [place] #[address] [place] [address] Annel Rod MD #[address] [address] documented as of this encounter Procedures Procedure Name Priority Date/Time Associated Diagnosis Comments URINALYSIS REFLEX IF INDICATED BY ABNORMAL RESULTS Routine 01/04/2022 6:47 AM CDT UTI symptoms POCT UA AUTOMATED W/O MICRO Routine 01/03/2022 4:14 PM CDT UTI symptoms documented in this encounter Results * LIPASE (01/04/2022 11:23 AM CDT) LIPASE 20.6 13 - 60 U/L 01/04/2022 12:27 PM CDT [facility] Blood Venipuncture / Unknown 01/04/2022 11:23 AM CDT 01/04/2022 11:56 AM CDT us Maritzaholden Berg PAC CHEMISTRY ORDERABLES Fin al Result Performing Organization Address City/[facility]/ZIP Co de Phone Number [facility] #[address] [place] [address] * AMYLASE (01/04/2022 11:23 AM CDT) AMYLASE 42 28 - 100 U/L 01/04/2022 12:27 PM CDT [facility] Blood Venipuncture / Unknown 01/04/2022 11:23 AM CDT 01/04/2022 11:56 AM CDT us Maritza Fritcher PAC CHEMISTRY ORDERABLES Fin al Result [facility] #[address] [place] [address] * (ABNORMAL) CMP (COMPREHENSIVE METABOLIC PANEL) (01/04/2022 11:23 AM CDT) SODIUM 136 136 - 144 mmol/L 01/04/2022 12:27 PM CDT [facility] POTASSIUM 4.0 3.5 - 5.1 mmol/L 01/04/2022 12:27 PM CDT [facility] CHLORIDE 100 100 - 110 mmol/L 01/04/2022 12:27 PM CDT [facility] CO2, VENOUS 28 22 - 32 mmol/L 01/04/2022 12:27 PM CDT [facility] ANION GAP 12.0 8.0 - 20.0 mmol/L 01/04/2022 12:27 PM CDT [facility] GLUCOSE 265(H) 70 - 99 mg/dL 01/04/2022 12:27 PM CDT [facility] BUN 12 8 - 23 mg/dL 01/04/2022 12:27 PM T [facility] CREATININE, BLOOD 0.62 0.60 - 1.10 mg/dL 01/04/2022 12:27 PM T [facility] BUN/CREATININE RATIO 19 12 - 20 ratio 01/04/2022 12:27 PM T [facility] TOTAL PROTEIN 8.2 6.0 - 8.3 g/dL 01/04/2022 12:27 PM T [facility] ALBUMIN 3.8 3.5 - 5.2 g/dL 01/04/2022 12:27 PM T [facility] Comment: The colormetric methods used for the determination of Albumin may lead to falsely elevated test results in patients suffering from renal failure or insufficiency due to interference with other proteins. A/G RATIO 0.9(L) 1.0 - 2.0 01/04/2022 12:27 PM CDT [facility] CALCIUM 10.1 8.9 - 10.3 mg/dL 01/04/2022 12:27 PM CDT [facility] T BILI 0.5 <=1.2 mg/dL 01/04/2022 12:27 PM CDT [facility] SGOT (AST) 21 <=32 U/L 01/04/2022 12:27 PM CDT [facility] SGPT (ALT) 16 <=41 U/L 01/04/2022 12:27 PM CDT [facility] ALKALINE PHOSPHATASE 98 35 - 105 U/L 01/04/2022 12:27 PM CDT [facility] IS THE PATIENT REQUIRED TO BE FASTING? No 01/04/2022 12:27 PM CDT [facility] GFR, ESTIMATED >60 >=60 01/04/2022 12:27 PM CDT [facility] Comment: Creatinine Clearance is the preferred criteria for selecting drug dose adjustments in renally impaired patients. ??The GFR is provided as additional pertinent clinical information. GFR is reported in mL/min/1.73 sq m. Calculation based on the Chronic Kidney Disease Epidemiology Collaboration (CKD- EPI) equation refit without adjustment for race. GFR, EST. >60 >=60 022 12:27 PM CDT [facility] GFR, EST. NONAFRICAN >60 >=60 01/04/2022 12:27 PM CDT [facility] Blood Venipuncture / Unknown 01/04/2022 11:23 AM CDT 01/04/2022 11:56 AM CDT us Dannielle Berg PAC CHEMISTRY ORDERABLES Fin al Result [facility] #1 [place] [address] * (ABNORMAL) URINALYSIS REFLEX IF INDICATED BY ABNORMAL RESULTS (01/04/2022 6:47 AM CDT) SPECIFIC GRAVITY 1.025 1.003 - 1.030 01/04/2022 12:37 PM CDT [facility] URINE PH 5.0 5.0 - 9.0 01/04/2022 12:37 PM CDT [facility] WBC ESTERASE 100 /uL(A) Negative 01/04/2022 12:37 PM CDT [facility] NITRITE Negative Negative 01/04/2022 12:37 PM CDT [facility] PROTEIN, RANDOM URINE 30 mg/dL(A) Negative 01/04/2022 12:37 PM CDT [facility] URINE GLUCOSE, QUAL 100 mg/dL(A) Negative 01/04/2022 12:37 PM CDT [facility] URINE KETONES 5 mg/dL(A) Negative 01/04/2022 12:37 PM CDT [facility] UROBILINOGEN Normal Normal mg/dL 01/04/2022 12:37 PM CDT [facility] URINE BLOOD 50 /uL(A) Negative minor/ul 01/04/2022 12:37 PM CDT [facility] URINALYSIS COLOR Yellow 01/04/2022 12:37 PM CDT [facility] URINALYSIS CLARITY Slightly Cloudy 01/04/2022 12:37 PM CDT [facility] WBC (Urine) 0-5 Negative, 0-5 /hpf 01/04/2022 12:37 PM CDT [facility] URINE RBC'S 0-2 Negative, 0-2 /hpf 01/04/2022 12:37 PM CDT [facility] EPITHELIAL CELLS Occasional /lpf 01/04/2022 12:37 PM CDT [facility] BACTERIA, URINE Few(A) Negative /hpf 01/04/2022 12:37 PM CDT [facility] CRYSTALS Amorphous urates 01/04/2022 12:37 PM CDT [facility] Urine URINE SPECIMEN COLLECTION, CLEAN CATCH / Unknown Non-Phlebotomy Collection / Unknown 01/04/2022 6:47 AM CDT 01/04/2022 6:47 AM CDT us Dannielle Berg PAC URINE ORDERABLES Final R esult [facility] #[address] [place] [address] * (ABNORMAL) POCT UA AUTOMATED W/O MICRO (01/03/2022 4:14 PM CDT) POC UA SPECIFIC GRAVITY 1.030 URINE PH 5.0 5.0 - 9.0 POC URINE LEUKOCYTES Negative Negative Emerson/uL POC URINE NITRITE Negative Negative POC URINE PROTEIN Negative Negative mg/dL POC URINE GLUCOSE 100 mg/dL(A) Negative, Norm mg/dL POC URINE KETONE Negative Negative mg/dL POC URINE UROBILINOGEN Norm Norm, 0.2 mg/dL, 1 mg/dL POC URINE BILIRUBIN Negative Negative mg/dL POC URINE BLOOD INSTRUMENT 50 Minor/uL(A) Negative Minor/uL POC URINE COLOR Yellow POC URINE CLARITY Slt Cloudy Urine 01/03/2022 4:14 PM CDT Dannielle Berg PAC POINT OF CARE TESTING (M ANUAL) Final Result documented in this encounter Visit Diagnoses Diagnosis UTI symptoms- Primary Nausea and vomiting, unspecified vomiting type Type 2 diabetes mellitus with other specified complication, with long-term current use of insulin (HCC) documented in this encounter Additional Health Concerns Assessment Noted Time PHQ-9 Depression Total Score: 0 07/21/19 21 3:00 PM CDT documented as of this encounter Care Teams Melter Helper Relationship Specialty Start Date End Date Justen Gale MD [address] [address] PCP - General Family Medicine 10/17/17 documented as of this encounter
--- OUTSIDE RECORDS SUMMARY | 2024-04-26 02:58 | XMS_ITS | Encounter Summary ---
Author Organization [facility] Address [address] [place] [address] Phone Care Team Providers Care Healthcare Architect Name Role Phone Justen Gale MD Primary Care Provider [phone] Reason for Referral * Consult, Test & Initiate Treatment (Routine) - Closed Specialty Diagnoses / Procedures Referred By Contac t Referred To Contact Diagnoses Radiculopathy, lumbosacral region Justen Gale MD #[address] [address] Phone: tel: fax: Taylor Smith MD Phone: tel: fax: Referral ID Status Reason Start Date Expiration Date Visits Re quested Visits Authorized [id number] Closed 12/13/2021 1 1 Scheduling Instructions Karly is being referred to [facility], Dr. Holli Smith or other specialist in patient's insurance network for m54.50. See below for Karly's current medications, allergies [...] Liquid, as needed, Disp: , Rfl: nystatin (MYCOSTATIN) [id number] UNIT/ML Suspension, Take 5 mL by mouth 4 times daily for 10 days. Apply to inside of each cheek., Disp: 200 mL, Rfl: 0 nystatin [id number] UNIT/GM Powder, APPLY TO THE AFFECTED AREA [...] -- Cephalosporins -- Anaphylaxis -- Dermatological Products, Mis. -- Hives and Itching -- SURGICAL TAPE [...] Visit * Reason Onset Date Comments Referral 12/13/2021 Encounter Details Date Type Department Care Team (Late st Contact Info) Description 12/13/2021 Telephone [facility] [place] [facility] [place] [address] Justen Gale MD #[address] [address] Referral Social History Tobacco Use Types Packs/Day [...] Telephone Encounter - Berenice Reyes RN - 12/13/2021 2:23 PM CDT Referral to jamie amaya pended for upcoming appts documented in this encounter Plan of Treatment Upcoming Encounters Date Type Department Care Team (Late st Contact Info) Description 05/17/2024 2:45 PM SAFETY SEALER Office Visit [facility] - Endocrinology - [place] #2 [place] [address] Annel Rod MD #2 [facility] [address] [place] [address] Scheduled Referrals Name Type Priority Associated Diagnoses Orde r Schedule EXTERNAL PAIN REFERRAL Outpatient Referral Routine Radiculopathy, lumbosacral region Expected: 12/12/2022, Expires: 06/14/2023 documented as of this encounter Visit Diagnoses Diagnosis Radiculopathy, lumbosacral region- Primary Thoracic or lumbosacral neuritis or radiculitis, unspecified documented in this encounter Additional Health Concerns Assessment Noted Time PHQ-9 Depression Total Score: 0 07/21/19 21 3:00 PM CDT documented as of this encounter Care Teams Healthcare Architect Relationship Specialty Start Date End Date Justen Gale MD #2 [facility] [address] [place] [address] PCP - General Family Medicine 10/17/17 documented as of this encounter
--- OUTSIDE RECORDS SUMMARY | 2024-04-26 02:58 | XMS_ITS | Encounter Summary ---
Author Organization [facility] Address [address] [facility] [place] [address] Phone Care Team Providers Care Head Of Measurement & Insights Name Role Phone Justen Gale MD Primary Care Provider [phone] Reason for Visit * Reason Onset Date Comments Leg Pain 09/03/2021 Encounter Details Date Type Department Care Team (Late st Contact Info) Description 09/03/2021 Nurse Triage [facility] [address] [place] [address] Justen Gale MD #[address] [address] Leg Pain Social History Tobacco Use Types Packs/Day [...] suspected to have Coronavirus/COVID-19? 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 Patient is postmenopausal. FYI Advised patient to be seen in the ED for further evaluation. Patient states her will drive her to the ED now. Advised patient to call 911 if emergent symptoms like shortness of breath and chest pain develop. Patient voiced understanding. RECOMMENDATION: See care advice and disposition for Guideline First positive answer recorded, all responses to prior questions were negative. If symptoms increase, change or if new symptoms develop, call your HCP or call back. Recommendations were based on caller information and is not a diagnosis. Verified and reviewed all triage information with caller. Reason for Disposition ? ? Thigh or calf pain in only one leg and present > 1 hour Protocols used: LEG PAIN-A-OH documented in this encounter Plan of Treatment Upcoming Encounters Date Type Department Care Team (Late st Contact Info) Description 05/17/2024 2:45 PM OUTPATIENT CODING SPECIALIST Office Visit [facility] - [place] [address] [place] [address] Annel Rod MD #[address] [id number] documented as of this encounter Visit Diagnoses Not on filedocumented in this encounter Additional Health Concerns Assessment Noted Time PHQ-9 Depression Total Score: 0 07/21/19 21 3:00 PM CDT documented as of this encounter Care Teams Head Of Measurement & Insights Relationship Specialty Start Date End Date Justen Gale MD #2 [place] [id number] PCP - General Family Medicine 10/17/17 documented as of this encounter
--- OUTSIDE RECORDS SUMMARY | 2024-04-26 02:58 | XMS_ITS | Encounter Summary ---
Author Organization [facility] Address [address] [place] [address] Phone Care Team Providers Care Gi Tech Name Role Phone Justen Gale MD Primary Care Provider [phone] Reason for Visit * Reason Onset Date Comments Skin Problem 10/12/2021 Allergic Reaction 10/12/2021 Encounter Details Date Type Department Care Team (Late st Contact Info) Description 10/12/2021 [facility] [address] [place] [address] Justen Gale MD #[address] [address] Skin Problem; Allergic Reaction Social History Tobacco Use Types [...] Telephone Encounter - Stacy Huang RN - 10/12/2021 9:43 AM CDT Called and spoke with patients to let him know that new medication was called in for her. He stated that he understood. * Telephone Encounter - Justen Gale MD - 10/12/2021 8:36 AM CDT Please call. Different abx called in. If no better in next 1-2 weeks, call or make ov. Call sooner if gets worse. * Telephone Encounter - Jennifer Ray RN - 10/12/2021 8:13 AM CDT SITUATION: Patient calling with antibiotic reaction BACKGROUND: Onset last night 10/11 after starting Macrobid for UTI ASSESSMENT: Symptom Description / Location: Denies rash or hives itching all over Denies any shortness of breath or difficulty breathing Denies any difficulty swallowing or thick tongue Moderate itching: feels the need to scratch all the time, all over Pain (0-10): Denies any pain Temp: Denies any fever 97.7F Treatment / Response: Took Benadryl this morning which is bringing some relief RECOMMENDATION: See care advice and disposition for Guideline Discuss with PCP and callback by nurse today Patient will need new antibiotic for UTI since she cannot tolerate the Macrobid. This RN advised not to take another dose before hearing from MD. Please advise and call patient back Karly Marques (Self) [phone] Patient verbalizes understanding and agreeable to plan of care First positive answer recorded, all responses to prior questions were negative. If symptoms increase, change or if new symptoms develop, call your HCP or call back. Recommendations were based on caller information and is not a diagnosis. Verified and reviewed all triage information with caller. Reason for Disposition ??? Taking prescription medication that could cause itching (e.g., codeine/morphine/other opiates, aspirin) Protocols used: ITCHING - [id number] documented in this encounter Plan of Treatment Upcoming Encounters Date Type Department Care Team (Late st Contact Info) Description 05/17/2024 2:45 PM APPLICATIONS ENGINEERING MANAGER Office Visit [facility] - Endocrinology [facility] #[address] [place] [address] Annel Rod MD #2 [facility] [address] [place] [address] documented as of this encounter Visit Diagnoses Not on filedocumented in this encounter Additional Health Concerns Assessment Noted Time PHQ-9 Depression Total Score: 0 07/21/19 21 3:00 PM CDT documented as of this encounter Care Teams Gi Tech Relationship Specialty Start Date End Date Justen Gale MD #2 [facility] [address] [place] [address] PCP - General Family Medicine 10/17/17 documented as of this encounter
--- OUTSIDE RECORDS SUMMARY | 2024-04-26 02:58 | XMS_ITS | Encounter Summary ---
Author Organization [facility] Address [address] [facility] [place] [address] Phone Care Team Providers Care Profile Shaper Operator Name Role Phone Justen Gale MD Primary Care Provider [phone] Reason for Visit * Reason Onset Date Comments Nausea 10/12/2021 chills 10/12/2021 Shaking 10/12/2021 Encounter Details Date Type Department Care Team (Late st Contact Info) Description 10/12/2021 [facility] [address] [place] [phone] Justen Gale MD #[address] [address] Nausea; chills; Shaking Social History Tobacco Use Types Packs/Day Years [...] Miscellaneous Notes * Telephone Encounter - Yris Aranda, RN - 10/12/2021 5:35 PM CDT S: UTI B: Patient had back surgery 10 or 12 days ago. Now has a uti and the macrobid she was on had to be changed due to allergic reaction. See encounter 10/12. Was ordered sulfamethoxazole-trimethoprim which she has not started yet. States her condition has gotten worse thru out the day. A: Patient states she has pain in the lower front part of her abdominal area. Is feeling shaky, chilling and is very nauseated. Not able to get up and around as much. Voice concerned she is feeling worse. R: Need evaluation Nurse advised the caller if she is feeling worse then she should be seen. Reason for Disposition ??? Patient sounds very sick or weak to the triager Protocols used: URINARY [id number] documented in this encounter Plan of Treatment Upcoming Encounters Date Type Department Care Team (Late st Contact Info) Description 05/17/2024 2:45 PM BROADCAST SYSTEMS ENGINEER Office [facility] #[address] [place] [address] Annel Rod MD #2 [facility] [address] [place] [address] documented as of this encounter Visit Diagnoses Not on filedocumented in this encounter Additional Health Concerns Assessment Noted Time PHQ-9 Depression Total Score: 0 07/21/19 21 3:00 PM CDT documented as of this encounter Care Teams Profile Shaper Operator Relationship Specialty Start Date End Date Justen Gale MD #2 [facility] [address] [place] [address] PCP - General Family Medicine 10/17/17 documented as of this encounter
--- OUTSIDE RECORDS SUMMARY | 2024-04-26 02:58 | XMS_ITS | Encounter Summary ---
Author Organization [facility] Address [address] [place] [address] Phone Care Team Providers Care Seed Production Field Supervisor Name Role Phone Justen Gale MD Primary Care Provider [phone] Reason for Visit * Reason Onset Date Comments Fatigue 10/20/2021 Sore Throat 10/20/2021 Aphagia 10/20/2021 tongue swelling 10/20/2021 Encounter Details Date Type Department Care Team (Late st Contact Info) Description 10/20/2021 Nurse Triage [facility] [address] [place] [address] Justen Gale MD #[address] [address] Fatigue; Sore Throat; Aphagia; tongue swelling Social History Tobacco Use Types Packs/Day Years [...] Telephone Encounter - Sakshi Gardner RN - 10/20/2021 8:47 PM CDT SITUATION (caller perception/concerns): Sore throat, trouble swallowing, tongue swelling and extreme fatigue BACKGROUND (events leading up to call): Patient has been seen in the ED for sore throat. She was started on antibiotics. Patient is allergic to a multitude of antibiotics and is complaining of increased swelling of her tongue and throat in the past 24 hours. ASSESSMENT: States that she still has a sore throat, has tender spots on her tongue, throat feels thick and has trouble swallowing. She states she has had that since she started taking antibiotics. She states the tongue swelling comes and goes but seems like it is worse now that it has been. She is nauseated, fatigued, has chills, diarrhea. She states that she has trouble eating because ofher swallowing difficulty. She has been eating soft foods and jello mostly. She advises that her urine is dark, although she states she has been voiding. Last void was about an hour ago. . RECOMMENDATION: See HCP within 4 hours. Patient agrees with disposition and will have her take her back to the ED for evaluation. See care advice and disposition for guideline. [...] Teach-back method utilized. Reason for Disposition ??? Swelling of tongue ??? [1] MODERATE weakness (i.e., interferes with work, school, normal activities) AND [2] cause unknown (Exceptions: weakness with acute minor illness, or weakness from poor fluid intake) Protocols used: SWALLOWING [id number], WEAKNESS (GENERALIZED) AND XWCRWIT-A-MB documented in this encounter Plan of Treatment Upcoming Encounters Date Type Department Care Team (Late st Contact Info) Description 05/17/2024 2:45 PM BEEF SPECIALIST Office Visit [facility] - [facility]inology - [place] [address] [place] [phone] [facility]el Rod [facility] [address] [place] [address] documented as of this encounter Visit Diagnoses Not on filedocumented in this encounter Additional Health Concerns Assessment Noted Time PHQ-9 Depression Total Score: 0 07/21/19 21 3:00 PM CDT documented as of this encounter Care Teams Seed Production Field Supervisor Relationship Specialty Start Date End Date Justen Gale MD #2 [place] [address] [place] [address] PCP - General Family Medicine 10/17/17 documented as of this encounter
--- OUTSIDE RECORDS SUMMARY | 2024-04-26 02:58 | XMS_ITS | Encounter Summary ---
Author Organization [facility] Address [address] [facility] [place] [address] Phone Care Team Providers Care Field Ironworker Name Role Phone Justen Gale MD Primary Care Provider [phone] Reason for Visit * Reason Onset Date Comments Urinary Frequency 01/03/2022 Encounter Details Date Type Department Care Team (Late st Contact Info) Description 01/03/2022 Nurse Triage [facility] [address] [place] [address] Justen Gale MD #[address] [address] Urinary Frequency Social History Tobacco Use Types [...] encounter Miscellaneous Notes * Telephone Encounter - Janelle Inman RN - 01/03/2022 11:08 AM CDT S: Nausea/vomiting B: onset 2 days ago A: Patient states she has been having UTIs for the past month, nauseated/vomited with some blood less than a quarter cup bright red blood, on blood thinners. Patient believes she is having a UTI again. Dizzy for past month, orthostatic hypotension. Denies pain. Urine is a darker color, denies burning, urgency and frequency. Denies blood in urine, uses commode and states there may be blood settling in urine during the night. Denies kidney or flank pain, denies foul odor to urine. Eating and drinking fair, denies fever. R: All Patient Appointments Provider Department Dept Phone 01/03/2022 4:00 PM Dannielle Berg [facility] Medical [facility] - Family Medicine [facility] [phone] 01/04/2022 9:45 AM [facility] [phone] Reason for Disposition ??? Urinating more frequently than usual (i.e., frequency) Protocols used: URINARY [id number] documented in this encounter Plan of Treatment Upcoming Encounters Date Type Department Care Team (Late st Contact Info) Description 05/17/2024 2:45 PM OPERATOR Office Visit [facility] Group - Endocrinology [facility] [address] [place] [address] Annel Rod MD #[address] [address] documented as of this encounter Visit Diagnoses Not on filedocumented in this encounter Additional Health Concerns Assessment Noted Time PHQ-9 Depression Total Score: 0 07/21/19 21 3:00 PM CDT documented as of this encounter Care Teams Field Ironworker Relationship Specialty Start Date End Date Justen Gale MD #2 [place] [address] PCP - General Family Medicine 10/17/17 documented as of this encounter
--- OUTSIDE RECORDS SUMMARY | 2024-04-26 02:58 | XMS_ITS | Encounter Summary ---
Author Organization [facility] Address [address] [facility] [place] [address] Phone Care Team Providers Care Child Caregiver Name Role Phone Justen Gale MD Primary Care Provider [phone] Reason for Visit * Reason Onset Date Comments Incisional Pain 11/22/2021 Encounter Details Date Type Department Care Team (Late st Contact Info) Description 11/22/2021 Nurse Triage [facility] [address] [place] [address] Justen Gale MD #[address] [address] Incisional Pain Social History Tobacco Use Types Packs/Day [...] Telephone Encounter - Yris Khan RN - 11/22/2021 4:04 PM CDT SITUATION: Lower back incision pain started on 11/21/21 BACKGROUND: History of back stimulator placement, UTI sepsis(E.Coli), Patient on home IV medications, Surgery on 10/30/21 ASSESSMENT: Symptom Description / Location: Incision pain Puffiness to right side of incision. Denies drainage, redness Pain (0-10): 3-8/10 Temp: Denies fever Treatment / Response: On IV Ertapenum 1 gram per day until 11/30/21 RECOMMENDATION: See care advice and disposition for [...] information with caller. Reason for Disposition ??? Severe pain in the incision Protocols used: POST-OP INCISION SYMPTOMS AND HISMGEQPQ-H-LW documented in this encounter Plan of Treatment Upcoming Encounters Date Type Department Care Team (Late st Contact Info) Description 05/17/2024 2:45 PM CITY EDITOR Office Visit [facility] - Endocrinology - [place] [address] [place] [address] Annel Rod MD #[address] [address] documented as of this encounter Visit Diagnoses Not on filedocumented in this encounter Additional Health Concerns Assessment Noted Time PHQ-9 Depression Total Score: 0 07/21/19 21 3:00 PM CDT documented as of this encounter Care Teams Child Caregiver Relationship Specialty Start Date End Date Justen Gale MD #[address] [address] PCP - General Family Medicine 10/17/17 documented as of this encounter
--- OUTSIDE RECORDS SUMMARY | 2024-04-26 02:58 | XMS_ITS | Encounter Summary ---
Author Organization [facility] Address [address] [place] [address] Phone Care Team Providers Care Pipe Recovery Specialist Name Role Phone Justen Gale MD Primary Care Provider [phone] Reason for Visit * Reason Onset Date Comments Follow-up 10/26/2021 Encounter Details Date Type Department Care Team (Late st Contact Info) Description 10/26/2021 Telephone [facility] [address] [place] [address] Justen Gale MD #[address] [address] Follow-up Social History Tobacco Use Types Packs/Day [...] Telephone Encounter - Jennifer Palumbo RN - 10/26/2021 4:12 PM CDT SITUATION: Patient is calling and states she needs an ED follow up and her tongue is still swollen and has worsening sore throat pain BACKGROUND: Back surgery a month ago Recent ED visit yesterday 10/25/21 for Urinary symptoms and was given IV steroids Doctors think patient has a different UTI Patient has been to the ED in the past month 5 times Diabetic Has numerous allergies to antibiotics ASSESSMENT: Sore throat has started off gradual from intubation from surgery Tongue is swollen Troubles swallowing Can hardly swallow anything States she has shortness of breath at times while lying flat on back and tongue has gotten worse. Blood pressure 189/109 yesterday and was discharged from the ED at [facility]. Patient normally states she does not usually have high blood pressure. Patient states she feels like she keeps getting dismissed from the hospital and no one will treat her. Denies shortness of breath currently and chest pain. FYI Advised her to go to a different ED since she is having troubles swallowing and throat pain has worsened. Advised her to call back to establish an ED follow up. States her will drive her to adifferent ED due to poor service at [facility]. RECOMMENDATION: See care advice and disposition for Guideline First positive answer recorded, all responses to prior questions were negative. If symptoms increase, change or if new symptoms develop, call your HCP or call back. Recommendations were based on caller information and is not a diagnosis. Verified and reviewed all triage information with caller. documented in this encounter Plan of Treatment Upcoming Encounters Date Type Department Care Team (Late st Contact Info) Description 05/17/2024 2:45 PM MID LEVEL CLINICIAN Office Visit [facility] - [facility]inology - [place] #2 [place] [address] Annel Rod MD #[address] [phone] documented as of this encounter Visit Diagnoses Not on filedocumented in this encounter Additional Health Concerns Assessment Noted Time PHQ-9 Depression Total Score: 0 07/21/19 21 3:00 PM CDT documented as of this encounter Care Teams Pipe Recovery Specialist Relationship Specialty Start Date End Date Justen Gale MD #2 [place] [id number] PCP - General Family Medicine 10/17/17 documented as of this encounter
--- OUTSIDE RECORDS SUMMARY | 2024-04-26 02:58 | XMS_ITS | Encounter Summary ---
Author Organization [employer] Care Team Providers Care Tunneling Machine Operator Name Role Phone Justen Gale MD Primary Care Provider [phone] Encounter Details Date Type Department Care Team (Latest Contact Info) Description 12/07/2021 Travel Social History Tobacco Use Types Packs/Day [...] st Contact Info) Description 05/17/2024 2:45 PM LINE UP MACHINE OPERATOR Office [facility] - [place] [address] [place] [address] Annel Rod MD #[address] [address] documented as of this encounter Visit Diagnoses Not on filedocumented in this encounter Additional Health Concerns Assessment Noted Time PHQ-9 Depression Total Score: 0 07/21/19 21 3:00 PM CDT documented as of this encounter Care Teams Tunneling Machine Operator Relationship Specialty Start Date End Date Justen Gale MD #2 [place] [address] PCP - General Family Medicine 10/17/17 documented as of this encounter
--- OUTSIDE RECORDS SUMMARY | 2024-04-26 02:58 | XMS_ITS | Encounter Summary ---
Author Organization [facility] Address [address] [place] [address] Phone Care Team Providers Care Avionics Integration Engineer Name Role Phone uJsten Gale MD Primary Care Provider [phone] Reason for Visit * Reason Onset Date Comments Care Management 09/12/2021 Encounter Details Date Type Department Care Team (Late st Contact Info) Description 09/12/2021 Telephone [facility] - [place] #[address] [place] [address] Annel Rod MD #[address] [address] Care Management Social History Tobacco [...] Telephone Encounter - Jennifer Wang RN - 09/16/2021 9:23 AM CDT Mychart message sent. * Telephone Encounter - Annel Rod MD - 09/12/2021 9:41 PM CDT Please ask her to reschedule it. * Telephone Encounter - Annel Rod MD - 09/12/2021 9:40 PM CDT ----- Message from Jennifer Wang RN sent at 09/09/2021 10:20 AM CDT ----- Regarding: FW: Pt not arriving for scheduled test ----- Message ----- From: Magda Saravia Sent: 09/09/2021 10:14 AM CDT To: Everardo Escamilla Subject: Pt not arriving for scheduled test The attached patient was ordered an US of the thyroid but has cancelled/no showed on multiple occasions, so reschedule again the patient should call central scheduling at [phone]. documented in this encounter Plan of Treatment Upcoming Encounters Date Type Department Care Team (Late st Contact Info) Description 05/17/2024 2:45 PM CATH LAB RADIOLOGY TECHNICIAN Office Visit [facility] - Endocrinology - [place] #[address] [place] [address] Annel Rod MD #[address] [phone] documented as of this encounter Visit Diagnoses Not on filedocumented in this encounter Additional Health Concerns Assessment Noted Time PHQ-9 Depression Total Score: 0 07/21/19 21 3:00 PM CDT documented as of this encounter Care Teams Avionics Integration Engineer Relationship Specialty Start Date End Date Justen Gale MD #[address] [address] PCP - General Family Medicine 10/17/17 documented as of this encounter
--- OUTSIDE RECORDS SUMMARY | 2024-04-26 02:58 | XMS_ITS | Encounter Summary ---
Author Organization [facility] Address [address] [place] [address] Phone Care Team Providers Care Associate Account Director Name Role Phone Justen Gale MD Primary Care Provider [phone] Reason for Visit * Reason Onset Date Comments Pain 12/22/2021 Encounter Details Date Type Department Care Team (Late st Contact Info) Description 12/22/2021 Nurse Triage [facility] [address] [place] [address] Justen Gale MD #[address] [address] Pain Social History Tobacco Use Types Packs/Day [...] encounter Miscellaneous Notes * Telephone Encounter - Radha Mejia RN - 12/22/2021 12:17 AM CDT Reason for Disposition ??? Patient sounds very sick or weak to the triager Protocols used: ARM PAIN-A-AH Given her history and assessment this nurse advised ED at this time. Will go to ED now for further evaluation. SITUATION: Arm pain BACKGROUND: Patient calling in this morning. States that she just had not felt good all day yesterday and feels kind of off . No confusion or disorientation just doesn't feel well. Recent sepsis and she just finished home IV therapy. Has no PICC line now or IV access and those areas look good no signs or symptoms of any infection. Had an implanted stimulator and battery pack inserted for pain, e nded up getting UTI and going septic. Had to remove battery pack. Then when PICC line was removed she ended up getting a blood clot. Patient normally has pain and takes pain medicine but this pain isdifferent achy all over arms and legs feel heavy. Has not been out of the house and unsure if any positive exposure to Covid at all. Blood sugars have been running okay and last A1C was good. States that she is unsure if the infection is completley cleared up. Also seen ENT last week due to a balance problem thought maybe she had inner ear problem and they gave her some exercises to help with that but she states they are not working. Is not running a fever. Patient feels like her mobility is affected having a hard time moving around. ASSESSMENT: Symptom Description / Location: as above Pain (0-10): 7/10 achy all over Temp: afebrile Treatment / Response: just taking her normal pain medicine but doesn't seem to be helping that much. LMP / / : PVC MONITOR RECOMMENDATION: See care advice and disposition for [...] st Contact Info) Description 05/17/2024 2:45 PM EDGER AUTOMATIC Office Visit [facility] - Endocrinology - [place] #[address] [place] [address] Annel Rod MD #2 [facility] [address] [place] [address] documented as of this encounter Visit Diagnoses Not on filedocumented in this encounter Additional Health Concerns Assessment Noted Time PHQ-9 Depression Total Score: 0 07/21/19 21 3:00 PM CDT documented as of this encounter Care Teams Associate Account Director Relationship Specialty Start Date End Date Justen Gale MD #2 [place] [facility] [address] [place] [address] PCP - General Family Medicine 10/17/17 documented as of this encounter
--- OUTSIDE RECORDS SUMMARY | 2024-04-26 02:58 | XMS_ITS | Encounter Summary ---
Author Organization [facility] Address [address] [place] [address] Phone Care Team Providers Care Pre Assembly Wirer Name Role Phone Justen Gale MD Primary Care Provider [phone] Reason for Visit * Reason Comments Medication Refill Encounter Details Date Type Department Care Team (Late st Contact Info) Description 12/06/2021 Refill [facility]ology - [place] #2 [place] [address] Annel Rod MD #[address] [address] Medication Refill Social History Tobacco [...] Telephone Encounter - Annel Rod MD - 12/07/2021 4:14 PM CDT Rx sent * Telephone Encounter - Jennifer Wang RN - 12/07/2021 10:05 AM CDT Requested Prescriptions Pending Prescriptions Disp Refills ??? Insulin Lispro, 1 Unit Dial, (HumaLOG KwikPen) 100 UNIT/ML Solution Pen- injector [Pharmacy Med Name: HUMALOG 100 U/ML KWIK PEN INJ 3ML] 45 mL 1 Sig: ADMINISTER 22 UNITS BEFORE EACH MEAL. MAX DAILY DOSE OF 120 UNITS Next appt: 12/20/2021 documented in this encounter Plan of Treatment Upcoming Encounters Date Type Department Care Team (Late st Contact Info) Description 05/17/2024 2:45 PM ARMHOLE RAISER LOCKSTITCH Office Visit [facility] - Endocrinology - [place] #2 [place] [address] Annel Rod MD #2 [facility] [address] [place] [address] documented as of this encounter Visit Diagnoses Not on filedocumented in this encounter Additional Health Concerns Assessment Noted Time PHQ-9 Depression Total Score: 0 07/21/19 21 3:00 PM CDT documented as of this encounter Care Teams Pre Assembly Wirer Relationship Specialty Start Date End Date Justen Gale MD #2 [facility] [address] [place] [address] PCP - General Family Medicine 10/17/17 documented as of this encounter
--- OUTSIDE RECORDS SUMMARY | 2024-04-26 02:58 | XMS_ITS | Encounter Summary ---
Author Organization [facility] Address [address] [place] [address] Phone Care Team Providers Care Reflow Operator Name Role Phone Justen Gale MD Primary Care Provider [phone] Reason for Visit * Reason Onset Date Comments Sore Throat 10/29/2021 Mouth Lesions 10/29/2021 Urinary Frequency 10/29/2021 Fever 10/29/2021 Encounter Details Date Type Department Care Team (Late st Contact Info) Description 10/29/2021 Nurse Triage [facility] [address] [place] [address] Justen Gale MD #[address] [address] Sore Throat; Mouth Lesions; Urinary Frequency; Fever Social History Tobacco Use Types Packs/Day Years [...] encounter Miscellaneous Notes * Telephone Encounter - Arely Soni RN - 10/29/2021 12:42 PM CDT SITUATION: Fever, UTI, headache, chills, sore throat BACKGROUND: Patient states she has been sick for 4 weeks, has been seen in Emergency Department multiple times. States she is getting worse. ASSESSMENT: Symptom Description / Location: Fever, headache, chills, sore throat and sore roof of mouth, sores on tongue, states tongue and throat have been swollen and sore for 3 weeks, white patches in mouth, difficult to swallow, urinary urgency, urinary frequency, denies urinary pain but reports pressure in lower abdomen, right mid back ache radiating out to side, feels weak, can hardly get out of bed and walk around, feels like she needs to sit when she does, no appetite, nauseous Pain (0-10): 10/01 - throat Temp: 100.5 10/29/21 at 1245 Treatment / Response: was on antibiotic but stopped due to reaction, was put on a different antibiotic (powder, 1 time dose, given twice 4-5 days apart) that didn't work according to patient, lidocaine spray for mouth RECOMMENDATION: See care advice and disposition for Guideline. No appointment availability today. Patient advised to go to prompt care. States she will go to [facility] urgent care. Has hospital follow up appointment scheduled for Monday, advised to keep appointment. All Patient Appointments Provider Department Dept Phone 11/01/2021 8:30 AM Pili Elkins [facility] - Family Medicine - [place] [phone] 11/29/2021 3:15 PM Annel Rod [facility] - Endocrinology - [place] [phone] 12/01/2021 1:45 PM Justen Gale [facility] Medical [facility] - Family Medicine - [place] [phone] First positive answer recorded, all responses to prior questions were negative. If symptoms increase, change or if new symptoms develop, call your HCP or call back. Recommendations were based on caller information and is not a diagnosis. Verified and reviewed all triage information with caller. Reason for Disposition ? ? Fever > 100.4 F (38.0 C) First positive answer recorded, all responses to prior questions were negative. Protocols used: URINATION PAIN - FEMALE-A-[place] documented in this encounter Plan of Treatment Upcoming Encounters Date Type Department Care Team (Late st Contact Info) Description 05/17/2024 2:45 PM HAT MENDER Office Visit [facility] - Endocrinology - [place] #2 [place] [address] Annel Rod MD #2 [facility] [address] [place] [address] documented as of this encounter Visit Diagnoses Not on filedocumented in this encounter Additional Health Concerns Assessment Noted Time PHQ-9 Depression Total Score: 0 07/21/19 21 3:00 PM CDT documented as of this encounter Care Teams Reflow Operator Relationship Specialty Start Date End Date Justen Gale MD #2 [facility] [address] [place] [address] PCP - General Family Medicine 10/17/17 documented as of this encounter
--- OUTSIDE RECORDS SUMMARY | 2024-04-26 02:59 | XMS_ITS | Encounter Summary ---
Author Organization [facility] Address [address] [place] [address] Phone Care Team Providers Care Media Executive Name Role Phone Justen Gale MD Primary Care Provider [phone] Reason for Visit * Reason Onset Date Comments supplies 10/27/2020 diabetic testing equipment and supplies Encounter Details Date Type Department Care Team (Late st Contact Info) Description 10/27/2020 Telephone [facility] #2 [place] [phone] Justen Gale MD #[address] [address] supplies (diabetic testing equipment and supplies) Social History Tobacco Use Types Packs/Day Years Used Date Smoking Tobacco: Never Smokeless Tobacco: Never Alcohol Use Standard Drinks/Week Comments No 0 (1 standard drink = 0.6 oz pur e alcohol) PHQ-2 Answer Date Recorded Total Score - Questions 1-9 0 06/23 Sexually Active Control Partners Comments Never Comments [...] have Coronavirus / COVID-19? No / Unsure 09/29/2020 3:22 PM CDT documented as of this encounter Miscellaneous Notes * Telephone Encounter - Elma Sykes RN - 10/27/2020 6:32 PM CDT Completed and faxed. * Telephone Encounter - Elma Sykes RN - 10/27/2020 10:58 AM CDT Received request for PCP signature and office visit notes from [facility] for this pt's diabetic testing equipment and supplies. Verified with pt's , Jimmie (on PRD) that the patient did request this. Placed on PCP desk for consideration and if appropriate, signature. documented in this encounter Plan of Treatment Upcoming Encounters Date Type Department Care Team (Late st Contact Info) Description 05/17/2024 2:45 PM TRAFFIC SIGNAL SUPERVISOR MAINTENANCE Office Visit [facility] - Endocrinology - [place] #[address] [place] [phone] Annel Rod MD #2 [facility] [address] [place] [address] documented as of this encounter Visit Diagnoses Not on filedocumented in this encounter Additional Health Concerns Assessment Noted Time PHQ-9 Depression Total Score: 0 07/21/19 21 3:00 PM CDT documented as of this encounter Care Teams Media Executive Relationship Specialty Start Date End Date Justen Gale MD #2 [facility] [address] [place] [address] PCP - General Family Medicine 10/17/17 documented as of this encounter
--- OUTSIDE RECORDS SUMMARY | 2024-04-26 02:59 | XMS_ITS | Encounter Summary ---
Author Organization [facility] Address [address] [place] [address] Phone Care Team Providers Care On Site Construction Superintendent Name Role Phone Justen Gale MD Primary Care Provider [phone] Reason for Visit * Reason Comments Medication Refill Encounter Details Date Type Department Care Team (Late st Contact Info) Description 06/22/2021 Refill [facility] - Family Medicine [facility] #2 [place] [address] Justen Gale MD #[address] [address] Medication Refill Social History Tobacco Use Types [...] Telephone Encounter - Justen Gale MD - 06/23/2021 2:01 PM CST approved RONMENTAL PROTECTION FORESTER * Telephone Encounter - Marlys Anderson RN - 06/23/2021 1:52 PM CST Medication failed the protocol, provider to review and approve the medication order if appropriate. Requested Prescriptions Pending Prescriptions Disp Refills Insulin Pen Needle (B-D ULTRAFINE III SHORT PEN) 31G X 8 MM Misc [Pharmacy Med Name: B-D PEN NDL SHRT [id number](09/06) KIT] 300 Pen Needle 1 Sig: USE 6 TIMES DAILY DIRECTED Diabetic Supplies Protocol Failed - 06/22/2021 8:13 PM Failed - Visit with relevant provider in past 6 months Recent Visits No visits were found meeting these conditions. Showing recent visits within past 182 days and meeting all other requirements Future Appointments No visits were found meeting these conditions. Showing future appointments within next 90 days and meeting all other requirements RONMENTAL PROTECTION FORESTER documented in this encounter Plan of Treatment Upcoming Encounters Date Type Department Care Team (Late st Contact Info) Description 05/17/2024 2:45 PM ENVIRONMENTAL PROTECTION FORESTER Office Visit [facility] - Endocrinology [facility] #[address] [place] [address] Annel Rod MD #[address] [address] documented as of this encounter Visit Diagnoses Not on filedocumented in this encounter Additional Health Concerns Assessment Noted Time PHQ-9 Depression Total Score: 0 07/21/19 21 3:00 PM CDT documented as of this encounter Care Teams On Site Construction Superintendent Relationship Specialty Start Date End Date Justen Gale MD #2 [facility] [address] [place] [address] PCP - General Family Medicine 10/17/17 documented as of this encounter
--- OUTSIDE RECORDS SUMMARY | 2024-04-26 02:59 | XMS_ITS | Encounter Summary ---
Author Organization [facility] [employer] Care Team Providers Care Transit Planner Name Role Phone Justen Gale MD Primary Care Provider [phone] Encounter Details Date Type Department Care Team (Latest Contact Info) Description 08/30/2021 Travel Social History Tobacco Use Types Packs/Day [...] Contact Info) Description 05/17/2024 2:45 PM DEPUTY CHIEF COUNSEL Office Visit [facility] - Endocrinology - [place] #[address] [place] [address] Annel Rod MD #[address] [address] documented as of this encounter Visit Diagnoses Not on filedocumented in this encounter Additional Health Concerns Assessment Noted Time PHQ-9 Depression Total Score: 0 07/21/19 21 3:00 PM CDT documented as of this encounter Care Teams Transit Planner Relationship Specialty Start Date End Date Justen Gale MD #2 [place] [address] PCP - General Family Medicine 10/17/17 documented as of this encounter
--- OUTSIDE RECORDS SUMMARY | 2024-04-26 02:59 | XMS_ITS | Encounter Summary ---
Author Organization [facility] Address [address] [place] [address] Phone Care Team Providers Care Wellness Consultant Name Role Phone Justen Gale MD Primary Care Provider [phone] Reason for Referral * Consult, Test & Initiate Treatment (Routine) - Canceled Specialty Diagnoses / Procedures Referred By Contac t Referred To Contact Gastroenterology Diagnoses Generalized abdominal pain Nausea Annel Rod MD #[address] [address] Phone: tel: fax: [facility] - Gastroenterology - [place] #[address] [place] [address] Phone: tel: fax: Referral ID Status Reason Start Date Expiration Date V isits Requested Visits Authorized [id number] Canceled 07/27/2021 1 1 Scheduling Instructions Karly is being referred for abdominal pain and nausea. Please contact patient for scheduling questions or concerns. * Radiology Services (Routine) - Closed Specialty Diagnoses / Procedures Referred By Contac t Referred To Contact Radiology Diagnoses Thyroid nodule Procedures US THYROID Annel Rod MD #[address] [address] Phone: tel: fax: Referral ID Status Reason Start Date Expiration Date Visits Re quested Visits Authorized [id number] Closed 07/27/2021 1 1 Reason for Visit * Reason Comments Diabetes Mellitus Follow up Encounter Details Date Type Department Care Team (Late st Contact Info) Description 07/27/2021 1:00 PM CDT Office Visit [facility] - Endocrinology - [place] #[address] [place] [address] Annel Rod MD #[address] [phone] Type 2 diabetes mellitus with diabetic polyneuropathy, with long-term current use of insulin (HCC) (Primary Dx); Thyroid nodule; Generalized abdominal pain; Nausea Discharge Disposition: Discharged to home or Selfcare [...] suspected to have Coronavirus/COVID-19? No / Unsure 07/27/2021 12:57 PM CDT documented as of this encounter Last Filed Vital Signs Vital Sign Reading Time Taken Comments Blood Pressure 130/72 07/27/2021 1:18 PM CDT Pulse 75 07/27/2021 1:18 PM CDT Temperature 36.2 ??C (97.1 ??F) 07/27/2021 1:18 PM CD T Respiratory Rate 18 07/27/2021 1:18 PM CDT Oxygen Saturation 96% 07/27/2021 1:18 PM CDT Inhaled Oxygen Concentration - - Weight 127.5 kg (281 lb) 07/27/2021 1:18 PM CDT Height 154.9 cm (5' 1 ) 07/27/2021 1:18 PM CDT Body Mass Index 53.09 07/27/2021 1:18 PM CDT documented in this encounter Patient Instructions * Patient Instructions* Annel Rod MD - 07/27/2021 1:00 PM CDT Arrangement will be made for thyroid ultrasound and thyroid function test ?? Additional steps in management to be determined once result is available for review ? Please take Lantus 50 units in the morning ?? Please take Humalog 22 units before each meal ?? Please use correctional factor insulin before each meal as directed ?? Please monitor blood sugar before each meal and at bedtime ?? Please bring??blood sugar log for review at the next visit ?? Please contact Endocrinology Clinic for low blood sugar events ?? Follow up visit in 3 months ?? RULE OF 15: ??If you have signs/symptoms of low blood sugar (hypoglycemia),and/or your blood sugar is less than 70 mg/dl, you may choose one of the below treatments (~15 gm of carbohydrate):glucose tablets or 1?2 glass (4 oz.) of apple juice or 1/2 glass (4 oz.) of clear regular soda and recheck blood sugar in 15 minutes, If not above 80 mg/dl, retreat treatment until blood sugar is above 80 mg/dl. Once blood sugar is above 80-90 mg/dL, please give insulin as scheduled. ?? Look at your feet, top and bottom every morning. If you have any signs of infection, such as:areas,change in feeling or temperature, swelling, blisters, or cracks in the skin, call your doctor rightaway. Apply lotion to dry skin areas to prevent cracks. Keep the skin between your toes clean and dry. ?? CORRECTION FACTOR: ??1:15 ?? BLOOD GLUCOSE (SUGAR) CORRECTION FACTOR: ??1:15?? HUMALOG/NOVOLOG UNDER 70 TREAT LOW, USE RULE OF 15 ?71 - 140 ??NO CORRECTIONAL INSULIN NEEDED 141 - 155 ??+1 UNIT 156 - 170 ??+2 UNITS 171 - 185 ??+3 UNITS 186 - 200 ??+4 UNITS 201 - 215 ??+5 UNITS 216 - 230 ??+6 UNITS 231 - 245 ??+7 UNITS 246 - 260 ??+8 UNITS 261 - 275 ??+9 UNITS 276 - 290 ??+10 UNITS 291 - 300 ??+11 UNITS ??ABOVE 300 ??+12 UNITS documented in this encounter Progress Notes * Annel Rod MD - 07/27/2021 1:00 PM CDT Subject&Objective Karly Marques is a 66-year-old woman who returns to the Endocrinology office to discuss management of type 2 diabetes mellitus. The patient's diabetes is complicated by lower extremity sensory neuropathy. Other pertinent health history includes hypertension, dyslipidemia, and obesity. The patient was initially diagnosed with diabetes approximately 10 years ago. Currently, Ms. Bentley takes Lantus 50 units in the morning and Humalog 22 units before each meal for management of hyperglycemia. The patient reports infrequent, mild hypoglycemic events with intact symptoms of hypoglycemia awareness. The patient denied severe low blood sugar events requiring thirdparty intervention. Review of her capillary blood glucose log for the past two weeks showed that morning blood sugars have been running consistently between 118 and 130 mg/dL with blood sugars checked at other times of the day consistently in the range of 116 to 168 mg/ dL. Hemoglobin A1c obtained by POC testing today was 6.9%. The patient has experienced intermittent nausea, abdominal discomfort, and bloating for the past 6 months. Physical Exam Vitals: 07/27/21 1318 BP: 130/72 BP Location: Right Arm BP Position: Sitting BP Cuff Size: Large Pulse: 75 Resp: 18 Temp: 97.1 ??F (36.2 ??C) TempSrc: Temporal SpO2: 96% Weight: 281 lb (127.5 kg) Height: 5' 1 (1.549 m) Constitutional: appears well-developed and well-nourished. No acute distress. Head: Normocephalic and atraumatic. Cardiovascular: Normal rate and regular rhythm Pulmonary/Chest: Effort normal and breath sounds normal Abdominal: No lipohypertrophy at injection sites Hb A1c checked by POC testing today was 6.9%. Lab Results Component Value Date HGBA1C 7.6 (A) 09/29/2020 Assessment and Plan Karly Marques is an elderly woman with type 2 diabetes mellitus whose glycemic control was stable and reasonable based on both review of her capillary blood glucose record and today's hemoglobin A1c measurement. Treatment consideration and lifestyle modification were discussed with her at some length. She will continue current medication for management of hyperglycemia. The patient will return for office reevaluation in 3 months. PLAN: 1. Take Lantus 50 units in the morning 2. Take Humalog 22 units before each meal 3. Correctional factor insulin dosed at 1:15 if CBG is > 140 mg/dl 4. Monitor blood sugar QAC/QHS 5. Bring CBG log for review 6. Contact Endocrinology Clinic for low blood sugar events 7. Apply for a CGM 8. RTC in 3 months Abdominal pain and nausea PLAN: 1. Arrange GI referral Obesity PLAN: 1. Low carb and calorie diet 2. Avoid snack and beverage between meal and at bedtime Multinodular goiter PLAN: 1. Arrange thyroid ultrasound and thyroid uptake scan 2. Further plan based on #1 Total time spent on this encounter on this date of service, including pre-visit review of separately obtained history, [id number]-[id number] interaction performing medically appropriate physical exam, patientcounseling/education, interpretation of diagnostic results, care coordination and documentation was33 minute Annel Rod MD 07/27/2021 * Madison Mccray CMA - 07/27/2021 1:00 PM CDT Patient was seen in office today and finger stick was obtained on left middle finger for A1C, Patient tolerated well. documented in this encounter Plan of Treatment Upcoming Encounters Date Type Department Care Team (Late st Contact Info) Description 05/17/2024 2:45 PM ROUTE DELIVERY SUPERVISOR Office Visit [facility] - Endocrinology - [place] #[address] [place] [address] Annel Rod MD #2 [facility] [address] [place] [phone] Scheduled Orders Name Type Priority Associated Diagnoses Orde r Schedule US THYROID Imaging Routine Thyroid nodule Expected: 07/27/2021, Expires: 10/26/2021 THYROID STIMULATING HORMONE (TSH) Lab Routine Thyroid nodule Expected: 07/27/2021, Expires: 10/26/2021 THYROXINE (T4) FREE Lab Routine Thyroid nodule Expected: 07/27/2021, Expires: 10/26/2021 Scheduled Referrals Name Type Priority Associated Diagnoses Order Schedule GASTROENTEROLOGY REFERRAL Outpatient Referral Routine Generalized abdominal pain Nausea Expected: 07/26/2022, Expires: 01/25/2023 documented as of this encounter Procedures Procedure Name Priority Date/Time Associated Diagnosis Comments POCT GLYCOSYLATED HEMOGLOBIN Routine 07/27/2021 3:24 PM CDT Type 2 diabetes mellitus with diabetic polyneuropathy, with long-term current use of insulin (HCC) documented in this encounter Results * (ABNORMAL) POCT GLYCOSYLATED HEMOGLOBIN (07/27/2021 3:24 PM CDT) HGB-A1C 6.9(A) 4 - 6 07/27/2021 3:24 PM CDT Annel Rod MD POINT OF CARE TESTING (MANUAL) F inal Result documented in this encounter Visit Diagnoses Diagnosis Type 2 diabetes mellitus with diabetic polyneuropathy, with long-term current use of insulin (HCC)- Primary Thyroid nodule Nontoxic uninodular goiter Generalized abdominal pain Abdominal pain, generalized Nausea Nausea alone documented in this encounter Additional Health Concerns Assessment Noted Time PHQ-9 Depression Total Score: 0 07/21/19 21 3:00 PM CDT documented as of this encounter Care Teams Wellness Consultant Relationship Specialty Start Date End Date Justen Gale MD #2 [facility] [address] [place] [address] PCP - General Family Medicine 10/17/17 documented as of this encounter
--- OUTSIDE RECORDS SUMMARY | 2024-04-26 02:59 | XMS_ITS | Encounter Summary ---
Author Organization [facility] [employer] Care Team Providers Care Broodmare Barn Groom Name Role Phone Justen Gale MD Primary Care Provider [phone] Encounter Details Date Type Department Care Team (Latest Contact Info) Description 02/02/2021 Travel Social History Tobacco Use Types Packs/Day [...] suspected to have Coronavirus / COVID-19? Yes 02/02/2021 12:07 PM CDT documented as of this encounter Plan of Treatment Upcoming Encounters Date Type Department Care Team (Late st Contact Info) Description 05/17/2024 2:45 PM GUARD MUSEUM Office Visit [facility] - Endocr[facility]ology - [place] [address] [place] [address] Annel Rod MD #[address] [facility] [address] [address] documented as of this encounter Visit Diagnoses Not on filedocumented in this encounter Additional Health Concerns Assessment Noted Time PHQ-9 Depression Total Score: 0 07/21/19 21 3:00 PM CDT documented as of this encounter Care Teams Broodmare Barn Groom Relationship Specialty Start Date End Date Justen Gale MD #2 [place] [id number] PCP - General Family Medicine 10/17/17 documented as of this encounter
--- OUTSIDE RECORDS SUMMARY | 2024-04-26 02:59 | XMS_ITS | Encounter Summary ---
Author Organization [facility] Address [address] [facility] [place] [address] Phone Care Team Providers Care Fly Finisher Name Role Phone Justen Gale MD Primary Care Provider [phone] Reason for Visit * Reason Onset Date Comments Leg Pain 05/06/2021 Shortness of Breath 05/06/2021 Encounter Details Date Type Department Care Team ([facility] st Contact Info) Description 05/06/[address] [facility] Central Call Center [address] [place] [id number] Justen Gale MD #[address] [address] Leg Pain; Shortness of Breath Social History Tobacco Use [...] suspected to have Coronavirus / COVID-19? Yes 05/06/2021 6:58 PM DINING SERVICE SUPERVISOR documented as of this encounter Miscellaneous Notes * Telephone Encounter - Domitila Kilgore RN - 05/06/2021 6:53 PM CST SITUATION (caller perception/concerns): Patient calling requesting advisement. BACKGROUND (events leading up to call): Had COVID about 2 weeks ago. New symptoms started last night (05/05/2021). 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 Now on Xarelto long-term. History: HTN, type 2 diabetes, hyperthyroidism, LUL, breast cancer ASSESSMENT: Onset: 05/05/2021 Symptoms: Constant left medial calf pain. Difficult to walk because of pain, limping somewhat. Reports mild difficulty breathing that was present with COVID symptoms, went away, then returned last night as well. No known injury. No chest pain or pressure. RECOMMENDATION: Due to patient's extensive history of blood clots and current symptoms, recommendedfor her to be evaluated in ED at this time. Patient verbalized understnaidng, states she will go toED nearest to her and someone is able to drive her. Encouraged patient to call afterwards with any further needs. Verbalized understanding. See care advice and disposition for guideline. [...] Teach-back method utilized. Reason for Disposition ??? Difficulty breathing Protocols used: LEG PAIN-A-AH NG SERVICE SUPERVISOR documented in this encounter Plan of Treatment Upcoming Encounters Date Type Department Care Team (Late st Contact Info) Description 05/17/2024 2:45 PM DINING SERVICE SUPERVISOR Office Visit [facility] - Endocr[facility]ology - [place] #2 [place] [address] Annel Rod MD #[address] [address] documented as of this encounter Visit Diagnoses Not on filedocumented in this encounter Additional Health Concerns Assessment Noted Time PHQ-9 Depression Total Score: 0 07/21/19 21 3:00 PM CDT documented as of this encounter Care Teams Fly Finisher Relationship Specialty Start Date End Date Justen Gale MD #2 [facility] [address] [place] [address] PCP - General Family Medicine 10/17/17 documented as of this encounter
--- OUTSIDE RECORDS SUMMARY | 2024-04-26 02:59 | XMS_ITS | Encounter Summary ---
Author Organization [facility] Address [address] [place] [address] Phone Care Team Providers Care Rent Collector Name Role Phone Justen Gale MD Primary Care Provider [phone] Reason for Referral * Consult, Test & Initiate Treatment (Less Than 4 Weeks) - Closed Specialty Diagnoses / Procedures Referred By Contac t Referred To Contact Diagnoses Diabetic gastroparesis associated with type 2 diabetes mellitus (HCC) Justen Gale MD #2 [facility] [address] [place] [address] Phone: tel: fax: [facility] [address] [facility] [address] [place] [address] Phone: tel: fax: Referral ID Status Reason Start Date Expiration Date Visits Re quested Visits Authorized [id number] Closed 10/12/2020 1 11 Scheduling Instructions Karly is being referred to Gastroenterology or other specialist in patient's insurance network for diabetic gastroparesis, constant nausea and vomiting. See below for Karly's current medications, allergies and problem list. CURRENT MEDS: Current Outpatient Medications: amitriptyline (ELAVIL) 25 MG Tablet, , Disp: , Rfl: atorvastatin (LIPITOR) 20 MG Tablet, Take 1 Tab by mouth daily. (Patient not taking: Reported on 11/18/2019), Disp: 90 Tab, Rfl: 3 Blood Glucose Monitoring Suppl Device, Diagnosis: Diabetes Type 2 Blood testing frequency: 4 times a day, Disp: 1 Each, Rfl: 0 exemestane (AROMASIN) 25 MG Tablet, Take 25 mg by mouth daily., Disp: , Rfl: famotidine (PEPCID) 20 MG Tablet, Take 1 Tab by mouth 2 times daily. (Patient not taking: Reported on 06/05/2020), Disp: 90 Tab, Rfl: 3 Glucose Blood (ONE TOUCH ULTRA TEST) Strip, Test four times daily., Disp: 400 Strip, Rfl: 3 HYDROcodone-acetaminophen (NORCO) 7.5-325 MG Tablet, TK 1 T PO QID PRN. DO NOT FILL UNTIL 02/13/2019, Disp: , Rfl: 0 Insulin Lispro, 1 Unit Dial, 100 UNIT/ML Solution Pen-injector, INJECT 22 UNITS THREE TIMES DAILY BEFORE EACH MEAL. MAX OF 120 UNITS PER DAY, Disp: 45 mL, Rfl: 1 Insulin Pen Needle (B-D ULTRAFINE III SHORT PEN) 31G X 8 MM Misc, USE SIX TIMES DAILY DIRECTED, Disp: 100 Pen Needle, Rfl: 11 Lantus SoloStar 100 UNIT/ML Solution Pen-injector, INJECT 50 UNITS SUBCUTANEOUSLY EVERY MORNING, Disp: 45 mL, Rfl: 1 lisinopril (PRINIVIL, ZESTRIL) 20 MG Tablet, Take 1 Tablet by mouth daily., Disp: 90 Tablet, Rfl: 1 Mirabegron ER 25 MG TABLET SR 24 HR, Take 25 mg by mouth., Disp: , Rfl: Misc. Devices Misc, Supply and instructions:, Disp: 1 Each, Rfl: 0 Misc. Devices Misc, Supply and instructions:, Disp: 1 Each, Rfl: 0 ondansetron (ZOFRAN) 4 MG Tablet, TAKE 1 TABLET BY MOUTH EVERY 8 HOURS NEEDED FOR NAUSEA, Disp: 15 Tab, Rfl: 9 ondansetron (ZOFRAN-ODT) 4 MG TABLET DISPERSIBLE, Take 4 mg by mouth. (Patient not taking: Reported on 09/29/2020), Disp: , Rfl: ONETOUCH DELICA LANCETS 33G Misc, 1 Lancet by Does not apply route 4 times daily., Disp: 400 Lancet, Rfl: 3 oxybutynin (DITROPAN) 5 MG Tablet, TAKE 1 TABLET BY MOUTH TWICE DAILY, Disp: 180 Tab, Rfl: 2 Polyethylene Glycol 3350 (MIRALAX PO), Take by mouth., Disp: , Rfl: rivaroxaban (XARELTO) 20 MG Tablet, Take 20 mg by mouth daily., Disp: , Rfl: rOPINIROLE (REQUIP) 5 MG Tablet, TAKE 1 TABLET BY MOUTH EVERY NIGHT, Disp: 90 Tab, Rfl: 3 tiZANidine (ZANAFLEX) 2 MG Capsule, Take 1 Tablet by mouth., Disp: , Rfl: No current facility-administered medications for this visit. ALLERGIES: -- Ceftriaxone -- Anaphylaxis -- Cephalosporins -- Anaphylaxis -- Oxycodone -- Unknown -- Reglan [Metoclopramide Hcl] -- Unknown -- Trazodone -- Other (see Comments) -- [...] Visit * Reason Onset Date Comments Referral 10/12/2020 Encounter Details Date Type Department Care Team (Late Contact Info) Description 10/12/2020 Telephone [facility] Central Call Center [address] [place] [address] Justen Gale MD #2 [facility] [address] [place] [address] Referral Social History Tobacco Use Types Packs/Day [...] Telephone Encounter - Jane Eaton RN - 10/12/2020 2:15 PM CDT Patient calling and requesting a new referral for GI because U is backed up with appointments until May 2021. Patient is asking for any GI referral (including Rebecca) if they can get her inwithin 3 months of referral placement. Would provider be willing to sign new referral? Order pended for your review. documented in this encounter Plan of Treatment Upcoming Encounters Date Type Department Care Team (Late Contact Info) Description 05/17/2024 2:45 PM FIELD SALES CONSULTANT Office Visit [facility] - Endocr[facility]ology - [place] #2 [place] [phone] Annel Rod MD #2 [facility] [address] [place] [address] Scheduled Referrals Name Type Priority Associated Diagnoses Order Schedule EXTERNAL GASTROENTEROLOGY REFERRAL Outpatient Referral Less Than 4 weeks Diabetic gastroparesis associated with type 2 diabetes mellitus (HCC) Expected: 10/14/2021, Expires: 04/15/2022 documented as of this encounter Visit Diagnoses Diagnosis Diabetic gastroparesis associated with type 2 diabetes mellitus (HCC)- Primary Type II or unspecified type diabetes mellitus with neurological manifestations, not stated as uncontrolled documented in this encounter Additional Health Concerns Assessment Noted Time PHQ-9 Depression Total Score: 0 07/21/19 21 3:00 PM CDT documented as of this encounter Care Teams Rent Collector Relationship Specialty Start Date End Date Justen Gale MD #2 [facility] [address] [place] [address] PCP - General Family Medicine 10/17/17 documented as of this encounter
--- OUTSIDE RECORDS SUMMARY | 2024-04-26 02:59 | XMS_ITS | Encounter Summary ---
Author Organization [facility] Address [address] [place] [address] Phone Care Team Providers Care Costumer Assistant Name Role Phone Justen Gale MD Primary Care Provider [phone] Reason for Visit * Reason Comments Medication Refill Encounter Details Date Type Department Care Team (Late st Contact Info) Description 03/15/2021 Refill [facility] - Endocr[facility]ology - [place] #2 [place] [address] Annel Rod MD #[address] [address] Medication Refill Social History Tobacco [...] have Coronavirus / COVID-19? No / Unsure 03/02/2021 5:05 PM BUILDING WRECKER documented as of this encounter Miscellaneous Notes * Telephone Encounter - Annel Rod MD - 03/15/2021 1:45 PM CST Rx sent DING WRECKER * Telephone Encounter - Jennifer Wang, RN - 03/15/2021 9:48 AM BUILDING WRECKER Requested Prescriptions Pending Prescriptions Disp Refills ??? Insulin Lispro, 1 Unit Dial, (HumaLOG KwikPen) 100 UNIT/ML Solution Pen- injector [Pharmacy Med Name: HUMALOG 100 U/ML KWIK PEN INJ 3ML] 45 mL 1 Sig: ADMINISTER 22 UNITS UNDER THE SKIN THREE TIMES DAILY BEFORE MEALS. MAX OF 120 UNITS PER DAY Next appt: 04/19/2021 DING WRECKER documented in this encounter Plan of Treatment Upcoming Encounters Date Type Department Care Team (Late st Contact Info) Description 05/17/2024 2:45 PM BUILDING WRECKER Office Visit [facility] - Endocrinology [facility] #2 [place] [address] Annel Rod MD #2 [facility] [address] [place] [address] documented as of this encounter Visit Diagnoses Not on filedocumented in this encounter Additional Health Concerns Assessment Noted Time PHQ-9 Depression Total Score: 0 07/21/19 21 3:00 PM CDT documented as of this encounter Care Teams Costumer Assistant Relationship Specialty Start Date End Date Justen Gale MD #2 [facility] [address] [place] [address] PCP - General Family Medicine 10/17/17 documented as of this encounter
--- OUTSIDE RECORDS SUMMARY | 2024-04-26 02:59 | XMS_ITS | Encounter Summary ---
Author Organization [facility] [employer] Care Team Providers Care Briefcase Sewer Name Role Phone Justen Gale MD Primary Care Provider [phone] Encounter Details Date Type Department Care Team (Latest Contact Info) Description 05/06/2021 Travel Social History Tobacco Use Types Packs/Day [...] Coronavirus / COVID-19? Yes 05/06/2021 6:58 PM DIGITAL MARKETING CONSULTANT documented as of this encounter Plan of Treatment Upcoming Encounters Date Type Department Care Team (Late st Contact Info) Description 05/17/2024 2:45 PM DIGITAL MARKETING CONSULTANT Office Visit [facility] - [facility]ology - [place] #[address] [place] [address] Annel Rod MD #[address] [address] [address] documented as of this encounter Visit Diagnoses Not on filedocumented in this encounter Additional Health Concerns Assessment Noted Time PHQ-9 Depression Total Score: 0 07/21/19 21 3:00 PM CDT documented as of this encounter Care Teams Briefcase Sewer Relationship Specialty Start Date End Date Justen Gale MD #2 [place] [address] PCP - General Family Medicine 10/17/17 documented as of this encounter
--- OUTSIDE RECORDS SUMMARY | 2024-04-26 02:59 | XMS_ITS | Encounter Summary ---
Author Organization [facility] Address [address] [place] [address] Phone Care Team Providers Care Logistics Administrator Name Role Phone Justen Gale MD Primary Care Provider [phone] David Roberts APRN, COMPUTER TECHNICAL SUPPORT SPECIALIST Unavailable [phone] Annel Rod MD Unavailable Reason for Visit * Reason Comments Medication Refill Encounter Details Date Type Department Care Team (Late st Contact Info) Description 02/17/2021 Refill [facility] - Family Medicine [facility] #2 [place] [phone] Justen Gale MD #[address] [address] Medication Refill Social History Tobacco Use Types [...] Telephone Encounter - Justen Gale MD - 02/18/2021 9:05 AM CDT Prescription approved. Please call in * Telephone Encounter - Fabiola Morse RN - 02/18/2021 8:41 AM CDT Medication failed the protocol, provider to review and approve the medication order if appropriate. Requested Prescriptions Pending Prescriptions Disp Refills lisinopril (PRINIVIL, ZESTRIL) 20 MG Tablet [Pharmacy Med Name: LISINOPRIL 20MG TABLETS] 90 Tablet 1 Sig: Take 1 Tablet by mouth daily. FLOYD Inhibitors Protocol Failed - 02/17/2021 5:43 PM Failed - Serum potassium on record in past 12 months POTASSIUM Date Value Ref Range Status 07/26/2019 4.6 3.5 - 5.1 mmol/L Final Failed - GFR on record in past 12 months GFR, EST. NONAFRICAN Date Value Ref Range Status 07/26/2019 >60 >=60 Final Passed - Blood pressure on record in past 12 months Clinician-entered: BP Readings from Last 3 Encounters: 09/29/20 128/70 09/09/20 124/78 07/20/20 128/76 Patient-entered: No data recorded Passed - Visit with relevant provider in past 12 months or upcoming 90 days Recent Visits Date Type Provider Dept 09/29/20 Office Visit Angelito Alegria APRN, [facility]TA [facility] 09/09/20 Office Visit Justen Gale MD [facility] 07/20/20 Office Visit Pili Elkins APRN, [facility] [place] 06/05/20 Office Visit [facility] [place] Showing recent visits within past 365 days and meeting all other requirements Future Appointments Date Type Provider Dept 03/02/21 Appointment Vince Hermosillo MD [facility] Showing future appointments within next 90 days and meeting all other requirements documented in this encounter Plan of Treatment Upcoming Encounters Date Type Department Care Team (Late st Contact Info) Description 05/17/2024 2:45 PM PAGINATOR Office Visit [facility] - Endocrinology - [place] #2 [place] [address] Annel Rod MD #[address] [place] [address] documented as of this encounter Visit Diagnoses Not on filedocumented in this encounter Additional Health Concerns Assessment Noted Time PHQ-9 Depression Total Score: 0 07/21/19 21 3:00 PM CDT documented as of this encounter Care Teams Logistics Administrator Relationship Specialty Start Date End Date Justen Gale MD #[address] [address] PCP - General Family Medicine 10/17/17 David Roberts APRN, NETTA #2 [place] [address] Nurse Practitioner Advanced Practice Nurse 01/31/22 Annel Rod MD #[address] [place] [address] Consulting Physician Endocrinology 07/01/22 documented as of this encounter
--- OUTSIDE RECORDS SUMMARY | 2024-04-26 02:59 | XMS_ITS | Encounter Summary ---
Author Organization [facility] Address [address] [place] [address] Phone Care Team Providers Care Web Applications Administrator Name Role Phone Justen Gale MD Primary Care Provider [phone] Reason for Visit * Reason Comments Medication Refill Encounter Details Date Type Department Care Team (Late st Contact Info) Description 03/15/2021 Refill [facility] - Family Medicine [facility] #2 [place] [address] Justen Gale MD #[address] [address] Medication Refill Social History Tobacco Use Types [...] COVID-19? No / Unsure 03/02/2021 5:05 PM EMBEDDED CASE MANAGER documented as of this encounter Miscellaneous Notes * Telephone Encounter - Justen Gale MD - 03/16/2021 9:03 AM CST approved DDED CASE MANAGER * Telephone Encounter - Marlys Anderson RN - 03/16/2021 8:49 AM CST Last appt 09/09/20 (PCP) - follow up none - pt also sees Dr Rod (for DM) Medication failed the protocol, provider to review and approve the medication order if appropriate. Requested Prescriptions Pending Prescriptions Disp Refills Lantus SoloStar 100 UNIT/ML Solution Pen-injector [Pharmacy Med Name: LANTUS SOLOSTAR PEN INJ 3ML] 45 mL 1 Sig: ADMINISTER 50 UNITS UNDER THE SKIN EVERY MORNING There is no refill protocol information for this order DDED CASE MANAGER documented in this encounter Plan of Treatment Upcoming Encounters Date Type Department Care Team (Late st Contact Info) Description 05/17/2024 2:45 PM EMBEDDED CASE MANAGER Office Visit [facility] - Endocrinology [facility] #2 [place] [address] Annel Rod MD #2 [facility] [address] [place] [address] documented as of this encounter Visit Diagnoses Not on filedocumented in this encounter Additional Health Concerns Assessment Noted Time PHQ-9 Depression Total Score: 0 07/21/19 21 3:00 PM CDT documented as of this encounter Care Teams Web Applications Administrator Relationship Specialty Start Date End Date Justen Gale MD #2 [facility] [address] [place] [address] PCP - General Family Medicine 10/17/17 documented as of this encounter
--- OUTSIDE RECORDS SUMMARY | 2024-04-26 02:59 | XMS_ITS | Encounter Summary ---
Author Organization [facility] Address [address] [place] [address] Phone Care Team Providers Care Public Relations Professional Name Role Phone Justen Gale MD Primary Care Provider [phone] Reason for Visit * Reason Onset Date Comments Medication Refill 10/12/2020 Medication Refill 10/14/2020 Encounter Details Date Type Department Care Team (Late st Contact Info) Description 10/12/2020 Telephone [facility] Call [facility] [address] [place] [address] Justen Gale MD #[address] [address] Medication Refill; Medication Refill Social History Tobacco Use Types [...] encounter Miscellaneous Notes * Telephone Encounter - Nalini Lagos RN - 10/16/2020 2:54 PM CDT Patient notified. Verbalized understanding and agrees. * Telephone Encounter - Jane Eaton RN - 10/14/2020 8:52 AM CDT Left message for patient to contact the office. * Telephone Encounter - Justen Gale MD - 10/13/2020 2:11 PM CDT Prescription approved. Please call in * Telephone Encounter - Marlys Anderson RN - 10/13/2020 2:02 PM CDT Medication warning Per nursing clinical judgement, provider to review and approve the medication(s) order(s) if appropriate. Requested Prescriptions Pending Prescriptions Disp Refills oxybutynin (DITROPAN) 5 MG Tablet 180 Tablet 3 Sig: Take 1 Tablet by mouth 2 times daily. [facility]: Bladder Agents Passed - 10/13/2020 8:24 AM Passed - Valid encounter within last 12 months Past Office Visits Recent Outpatient Visits 2 weeks ago Diabetic gastroparesis associated with type 2 diabetes mellitus (HCC) [facility] - Family Medicine - Angelito Pizano APN, CNP 1 month ago Urinary incontinence, unspecified type [facility] - Family Medicine - Justen Olmedo MD 2 months ago CRP elevated [facility] - Family [facility] - Pili Mueller APN, NETTA 4 months ago Increased urinary frequency [facility] - Family [facility] - Pili Mueller APN, NETTA 7 months ago Urinary frequency [facility] - Family Medicine - [place] Pili Elkins APN, CNP Upcoming Appointments RN TRAVELING - Recent and Past Visits Recent Visits Date Type Provider Dept 09/29/20 Office Visit Angelito Alegria APN, NETTA [facility] 09/09/20 Office Visit Justen Gale MD [facility] 07/20/20 Office Visit Pili Elkins APN, NETTA [facility] 06/05/20 Office Visit Pili Elkins APN, NETTA [facility] [place] 02/17/20 Office Visit Pili Elkins APN, NETTA [facility] 12/03/19 Office Visit Pili Elkins APN, NETTA [facility] [place] 11/05/19 Telemedicine Justen Gale MD [facility] 07/25/19 Telemedicine [facility] Show[facility] recent visits within past 460 days with a meds authorizing provider and meeting all other requirements Future Appointments No visits were found meeting these conditions. Showing future appointments within next 90 days with a meds authorizing provider and meeting all other requirements * Telephone Encounter - Jane Eaton RN - 10/12/2020 2:26 PM CDT Patient asking for refill on oxybutynin. Order pended for review. documented in this encounter Plan of Treatment Upcoming Encounters Date Type Department Care Team (Late st Contact Info) Description 05/17/2024 2:45 PM TUBE COVERER Office Visit [facility] - Endocr[facility]ology - [place] #2 [place] [address] Annel Rod MD #[address] [phone] documented as of this encounter Visit Diagnoses Not on filedocumented in this encounter Additional Health Concerns Assessment Noted Time PHQ-9 Depression Total Score: 0 07/21/19 21 3:00 PM CDT documented as of this encounter Care Teams Public Relations Professional Relationship Specialty Start Date End Date Justen Gale MD #2 [place] [id number] PCP - General Family Medicine 10/17/17 documented as of this encounter
--- OUTSIDE RECORDS SUMMARY | 2024-04-26 02:59 | XMS_ITS | Encounter Summary ---
Author Organization [facility] Address [address] [place] [address] Phone Care Team Providers Care Vacuum Metalizing Supervisor Name Role Phone Justen Gale MD Primary Care Provider [phone] Encounter Details Date Type Department Care Team (Late st Contact Info) Description 12/03/2020 Transcribe Orders [facility] [address] [place] [address] Pili Elkins APRN, VP BUSINESS DEVELOPMENT #[address] [address] Obstructive sleep apnea (Primary Dx) Social History Tobacco Use Types [...] st Contact Info) Description 05/17/2024 2:45 PM PEER FINANCIAL COUNSELOR Office Visit [facility] - Endocrinology - [place] #2 [place] [address] Annel Rod MD #2 [place] [facility] [address] [place] [address] Scheduled Orders Name Type Priority Associated Diagnoses Orde r Schedule POLYSOMNOGRAPHY 4 OR MORE PARAMETERS WITH CPAP Sleep Center Routine Obstructive sleep apnea Expected: 12/03/2020, Expires: 12/03/2021 documented as of this encounter Visit Diagnoses Diagnosis Obstructive sleep apnea- Primary Obstructive sleep apnea (adult) (pediatric) documented in this encounter Additional Health Concerns Assessment Noted Time PHQ-9 Depression Total Score: 0 07/21/19 21 3:00 PM CDT documented as of this encounter Care Teams Vacuum Metalizing Supervisor Relationship Specialty Start Date End Date Justen Gale MD #2 [place] [facility] [address] [place] [address] PCP - General Family Medicine 10/17/17 documented as of this encounter
--- OUTSIDE RECORDS SUMMARY | 2024-04-26 02:59 | XMS_ITS | Encounter Summary ---
Author Organization [facility] Address [address] [place] [address] Phone Care Team Providers Care Cash Management Clerk Name Role Phone Justen Gale MD Primary Care Provider [phone] Reason for Visit * Reason Comments Pre-Operative Exam Pre Op Exam Encounter Details Date Type Department Care Team (Late st Contact Info) Description 08/30/2021 2:30 PM CDT [facility]2 [place] [address] Justen Gale MD #[address] [address] Radiculopathy, lumbosacral region (Primary Dx); Chronic low back pain, unspecified back pain laterality, unspecified whether sciatica present; Essential hypertension; Type 2 diabetes mellitus with diabetic polyneuropathy, [...] Sign Reading Time Taken Comments Blood Pressure 122/88 08/30/2021 2:31 PM CDT Pulse 104 08/30/2021 2:31 PM CDT Temperature 36.3 ??C (97.3 ??F) 08/30/2021 2:31 PM CD T Respiratory Rate 18 08/30/2021 2:31 PM CDT Oxygen Saturation 97% 08/30/2021 2:31 PM CDT Inhaled Oxygen Concentration - - Weight 131 kg (288 lb 11.2 oz) 08/30/2021 2:31 P M CDT Height 154.9 cm (5' 1 ) 08/30/2021 2:31 PM CDT Body Mass Index 54.55 08/30/2021 2:31 PM CDT documented in this encounter Progress Notes * Sylvia An - 08/30/2021 2:30 PM CDT Karly Marques, 66 y.o., female is here for Pre-Operative Exam (Pre Op Exam) Medication Refills: Patient reports/denies need for medication refills. Orders Pended: no Requested Prescriptions No prescriptions requested or ordered in this encounter Home Medications Medication Sig Start Date End Date Taking? Authorizing Provider amitriptyline (ELAVIL) 25 MG Tablet 02/18/19 Yes Tyler Smith MD Blood Glucose Monitoring Suppl Device Diagnosis: Diabetes Type 2 Blood testing frequency: 4 times aday 11/21/17 Yes Justen Gale MD exemestane (AROMASIN) 25 MG Tablet Take 25 mg by mouth daily. Yes Tyler Smith MD Glucose Blood (ONE TOUCH ULTRA TEST) Strip Test four times daily. 02/11/20 Yes Annel Rod MD HYDROcodone-acetaminophen (NORCO) 7.5-325 MG Tablet TK 1 T PO QID PRN. DO NOT FILL UNTIL Yes ProviderTyler MD Insulin Lispro, 1 Unit Dial, (HumaLOG [...] No sig reported 02/25/19 Justen Gale MD OneTouch Delica Lancets 33G Misc 1 Lancet by Does not apply route 4 times daily. 03/09/21 Yes Annel Rod MD oxybutynin (DITROPAN) 5 MG Tablet Take 1 Tablet by mouth 2 times daily. 10/13/20 Yes Justen Gale MD rivaroxaban (XARELTO) 20 MG Tablet Take 20 mg by mouth daily. Yes ProviderTyler MD rOPINIROLE (REQUIP) 5 MG Tablet TAKE 1 TABLET BY MOUTH EVERY NIGHT 03/15/21 Yes Justen Gale MD There are no [...] have been addressed with the patient today: Depression and Advanced Care Planning * Justen Gale MD - 08/30/2021 2:30 PM CDT SUBJECTIVE: Karly Marques is here to follow-up/ evaluation on her 1. Radiculopathy, lumbosacral region 2. Chronic low back pain, unspecified back pain laterality, unspecified whether sciatica present Karly Marques says she has been feeling [...] Never Smoker ??? Smokeless tobacco: Never Used Substance Use Topics ??? Alcohol use: No Exercise: no ROS: She denies chest pain, dyspnea, claudication, visual symptoms. She denies symptoms of transient ischemic attacks. No lightheadedness, palpitations, or syncope. No edema. She is compliant in taking her medication and denies medication side effects. Going for nerve stim in a few weeks. Will have it put in in [facility] at [facility]. Had reaction to lisinopril recently Off that Outpatient Medications Marked as Taking for the 08/30/21 encounter (Office Visit) with Shashi Gale MD Medication Sig Dispense Refill ??? amitriptyline (ELAVIL) 25 MG Tablet ??? Blood Glucose Monitoring Suppl Device Diagnosis: [...] Supply and instructions: 1 Each 0 ??? OneTouch Delica Lancets 33G Misc 1 Lancet by Does not apply route 4 times daily. 400 Lancet 3 ??? oxybutynin (DITROPAN) 5 MG Tablet Take 1 Tablet by mouth 2 times daily. 180 Tablet 3 ??? rivaroxaban (XARELTO) 20 MG Tablet Take 20 mg by mouth daily. ??? rOPINIROLE (REQUIP) 5 MG Tablet TAKE 1 TABLET BY MOUTH EVERY NIGHT 90 Tablet 2 Allergies Allergen Reactions ??? Ceftriaxone Anaphylaxis ??? Cephalosporins Anaphylaxis ??? Lorazepam Other (see Comments) and Unknown Aggrevates restless leg syndrome Aggrevates restless leg syndrome ??? Latex Rash ??? Lisinopril Swelling ??? Oxycodone Unknown ??? Reglan [Metoclopramide Hcl] Unknown ??? Reslizumab Unknown ??? Ketorolac Itching ??? Pregabalin Other (see Comments) ??? Trazodone Other (see Comments) Shaky, restlessness, itching, throat swelling LABS Lab Results Component Value Date WBC 9.29 07/26/2019 HEMOGLOBIN 12.4 07/26/2019 HEMATOCRIT 40.9 07/26/2019 PLATELETCNT 313 07/26/2019 CHOLESTEROL 216 (H) 04/23/2019 TRIGLYCRIDES 154 (H) 04/23/2019 HDLCHOLESTE 50.9 04/23/2019 LDL 134 (H) 04/23/2019 LDL 101 01/24/2018 LDL 110 11/02/2017 INR 1.2 (A) 05/06/2021 HGBA1C 6.9 (A) 07/27/2021 HGBA1C 7.6 (A) 09/29/2020 HGBA1C 6.9 01/18/2020 ESR 56 (H) 12/03/2017 Lab Results Component Value Date SODIUM 138 07/26/2019 POTASSIUM 4.6 07/26/2019 CHLORIDE 100 07/26/2019 CO2VEN 27 07/26/2019 ANIONGAP 15.6 07/26/2019 GLUCOSE 133 (H) 07/26/2019 BUN 18 07/26/2019 CREATININE 0.74 07/26/2019 BCRATIO8 24 (H) 07/26/2019 TOTALPROTEIN 8.2 07/26/2019 ALBUMIN 3.8 07/26/2019 CALCIUM 9.7 07/26/2019 TBIL 0.6 07/26/2019 SGOTAST 18 07/26/2019 SGPTALT 20 07/26/2019 ALKALINEPHO 88 07/26/2019 GFRNA >60 07/26/2019 GFRA >60 07/26/2019 TSH 3.960 07/26/2019 OBJECTIVE Well-nourished, well-developed, pleasant, cooperative 66 y.o. female in no acute distress. Vitals: 08/30/21 1431 BP: 122/88 BP Location: Left Arm BP Position: Sitting BP Cuff Size: Regular Pulse: 104 Resp: 18 Temp: 97.3 ??F (36.3 ??C) TempSrc: Temporal SpO2: 97% Weight: 288 lb 11.2 oz (131 kg) Height: 5' 1 (1.549 m) Body mass index is 54.55 kg/m??. BP Readings from Last 3 Encounters: 08/30/21 122/88 07/27/21 130/72 09/29/20 128/70 Wt Readings from Last 3 Encounters: 08/30/21 288 lb 11.2 oz (131 kg) 07/27/21 281 lb (127.5 kg) 09/29/20 295 lb 4.8 oz (133.9 kg) SKIN: Warm and dry. EYES: Sclerae are clear. NECK: Supple. No thyromegaly or adenopathy, no bruits.BACK: No spine or costovertebral angle tenderness. LUNGS: Clear to auscultation and percussion. HEART:normal rate, regular rhythm, normal S1, S2, no murmurs, rubs, clicks or gallops. ABDOMEN: Bowel sounds are active. No masses. No organomegaly, no tenderness. No bruits. EXTREMITIES: No edema. Cane Glasses Mask Obese rom c spine wnl Class 4 airway ASSESSMENT AND PLAN Diagnoses and all orders for this visit: Radiculopathy, lumbosacral region Chronic low back pain, unspecified back pain laterality, unspecified whether sciatica present There are no discontinued medications. No follow-ups on file. Continue current medication After visit summary discussed with patient. Documentation for this visit on 08/30/2021 was completed using a template. I have seen and examined the patient. Everything documented was personally performed at this visit with the necessary additions, deletions and changes made as appropriate. Htn; Off sara. bp fine. Leave as is for ow Low back pain; No new bleeding issues. No chest pain no new sob. Low risk procedure. Overnight hospital stay. No issues with anesthesia in the past. Does have dm. able to do 2 fos Dm; Recent aic okay. Recheck few months Seeing dr kevin jarrett documented in this encounter Plan of Treatment Upcoming Encounters Date Type Department Care Team (Late st Contact Info) Description 05/17/2024 2:45 PM HEEL SEAT FILLER Office Visit [facility] - [facility] - [place] [address]2 [place] [address] Annel Rod MD #[address] [address] documented as of this encounter Visit Diagnoses Diagnosis Radiculopathy, lumbosacral region- Primary Thoracic or lumbosacral neuritis or radiculitis, unspecified Chronic low back pain, unspecified back pain laterality, unspecified whether sciatica present Essential hypertension Unspecified essential hypertension Type 2 diabetes mellitus with diabetic polyneuropathy, with long-term current use of insulin (HCC) documented in this encounter Additional Health Concerns Assessment Noted Time PHQ-9 Depression Total Score: 0 07/21/19 21 3:00 PM CDT documented as of this encounter Care Teams Cash Management Clerk Relationship Specialty Start Date End Date Justen Gale MD [address]2 [place] [address] PCP - General Family Medicine 10/17/17 documented as of this encounter
--- OUTSIDE RECORDS SUMMARY | 2024-04-26 02:59 | XMS_ITS | Encounter Summary ---
Author Organization [facility] Address [address] [place] [address] Phone Care Team Providers Care Truck Switcher Name Role Phone Justen Gale MD Primary Care Provider Encounter Details Date Type Department Care Team (Late st Contact Info) Description 02/18/2021 Telephone [facility] [address]2 [place] [address] Justen Gale MD #[address] [address] Social History Tobacco Use Types Packs/Day Years [...] Encounter - Justen Gale MD - 02/18/2021 8:46 AM CDT d documented in this encounter Plan of Treatment Upcoming Encounters Date Type Department Care Team (Late st Contact Info) Description 05/17/2024 2:45 PM GUIDE DOMESTIC TOUR Office Visit [facility] - Endocrinology - [place] #2 [place] [address] Annel Rod MD #[address] [facility] [address] [place] [address] documented as of this encounter Visit Diagnoses Not on filedocumented in this encounter Additional Health Concerns Assessment Noted Time PHQ-9 Depression Total Score: 0 07/21/19 21 3:00 PM CDT documented as of this encounter Care Teams Truck Switcher Relationship Specialty Start Date End Date Justen Gale MD #[address] [facility] [address] [place] [address] PCP - General Family Medicine 10/17/17 documented as of this encounter
--- OUTSIDE RECORDS SUMMARY | 2024-04-26 02:59 | XMS_ITS | Encounter Summary ---
Author Organization [facility] Address [address] [place] [address] Phone Care Team Providers Care Camp Dishwasher Name Role Phone Justen Gale MD Primary Care Provider [phone] Reason for Referral * Consult, Test & Initiate Treatment (Routine) - Closed Specialty Diagnoses / Procedures Referred By Contac t Referred To Contact Diagnoses Malignant neoplasm of upper-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, unspecified estrogen receptor status (HCC) Justen Gale MD #[address] [address] Phone: tel: fax: [facility] [address] [place] [address] Phone: tel: fax: Referral ID Status Reason Start Date Expiration Date Visits Re quested Visits Authorized [id number] Closed 06/21/2021 12 12 Scheduling Instructions Karly is being referred to Dr. Sarwat Gamez NPI# [id number] or other specialist in patient's insurance network for [id number]. See below for Karly's current medications, allergies and problem list. CURRENT MEDS: Current Outpatient Medications: amitriptyline (ELAVIL) 25 MG Tablet, , Disp: , Rfl: Blood Glucose Monitoring Suppl [...] 11 Lantus SoloStar 100 UNIT/ML Solution Pen-injector, ADMINISTER 50 UNITS UNDER THE SKIN EVERY MORNING, Disp: 45 mL, Rfl: 1 Misc. Devices Misc, Supply and instructions:, Disp: 1 Each, Rfl: 0 Misc. Devices Misc, Supply and instructions: (Patient not taking: Reported on 05/31/2021), Disp: 1 Each, Rfl: 0 OneTouch Delica Lancets 33G Misc, 1 Lancet by Does not apply route 4 times daily., Disp: 400 Lancet, Rfl: 3 oxybutynin (DITROPAN) 5 MG Tablet, Take 1 Tablet by mouth 2 times daily., Disp: 180 Tablet, Rfl: 3 rivaroxaban (XARELTO) 20 MG Tablet, Take 20 mg by mouth daily., Disp: , Rfl: rOPINIROLE (REQUIP) 5 MG Tablet, TAKE 1 TABLET BY MOUTH EVERY NIGHT, Disp: 90 Tablet, Rfl: 2 No current facility-administered medications for this visit. ALLERGIES: -- Ceftriaxone -- Anaphylaxis -- Cephalosporins -- Anaphylaxis -- Lisinopril -- Swelling -- Oxycodone -- Unknown -- Reglan [Metoclopramide [...] to 59.9 in adult (HCC) Thyroid nodule SION FIELD INSPECTOR * Consult, Test & Initiate Treatment (Routine) - Closed Specialty Diagnoses / Procedures Referred By Elyssa benavides Referred To Contact Diagnoses Malignant neoplasm of upper-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, unspecified estrogen receptor status (HCC) Justen Gale MD #2 [place] [address] Phone: tel: fax: Khris Arthur [address] [place] [address] Phone: tel: fax: Referral ID Status Reason Start Date Expiration Date Visits Re quested Visits Authorized [id number] Closed 06/21/2021 12 12 Scheduling Instructions Karly is being referred to Dr. Khris Medrano I # [id number] or other specialist in patient's insurance network for [id number]. See below for Karly's current medications, allergies and problem list. CURRENT MEDS: Current Outpatient Medications: amitriptyline (ELAVIL) 25 MG Tablet, , Disp: , Rfl: Blood Glucose Monitoring Suppl [...] 11 Lantus SoloStar 100 UNIT/ML Solution Pen-injector, ADMINISTER 50 UNITS UNDER THE SKIN EVERY MORNING, Disp: 45 mL, Rfl: 1 Misc. Devices Misc, Supply and instructions:, Disp: 1 Each, Rfl: 0 Misc. Devices Misc, Supply and instructions: (Patient not taking: Reported on 05/31/2021), Disp: 1 Each, Rfl: 0 OneTouch Delica Lancets 33G Misc, 1 Lancet by Does not apply route 4 times daily., Disp: 400 Lancet, Rfl: 3 oxybutynin (DITROPAN) 5 MG Tablet, Take 1 Tablet by mouth 2 times daily., Disp: 180 Tablet, Rfl: 3 rivaroxaban (XARELTO) 20 MG Tablet, Take 20 mg by mouth daily., Disp: , Rfl: rOPINIROLE (REQUIP) 5 MG Tablet, TAKE 1 TABLET BY MOUTH EVERY NIGHT, Disp: 90 Tablet, Rfl: 2 No current facility-administered medications for this visit. ALLERGIES: -- Ceftriaxone -- Anaphylaxis -- Cephalosporins -- Anaphylaxis -- Lisinopril -- Swelling -- Oxycodone -- Unknown -- Reglan [Metoclopramide [...] to 59.9 in adult (HCC) Thyroid nodule SION FIELD INSPECTOR Reason for Visit * Reason Onset Date Comments Referral 06/21/2021 Encounter Details Date Type Department Care Team (Late st Contact Info) Description 06/21/2021 Telephone [facility] #2 [place] [address] Justen Gale MD #[address] [address] Referral Social History Tobacco Use Types Packs/Day [...] Telephone Encounter - Stacy Huang RN - 06/21/2021 11:35 AM DIVISION FIELD INSPECTOR Received a call for [facility] environmental construction engineer stated that a Nurse called and stated patient needs 2 referrals. Referrals pended. SION FIELD INSPECTOR documented in this encounter Plan of Treatment Upcoming Encounters Date Type Department Care Team (Late st Contact Info) Description 05/17/2024 2:45 PM DIVISION FIELD INSPECTOR Office Visit [facility] - Endocrin[facility] #2 [place] [address] Annel Rod MD #2 [facility] [address] [place] [address] Scheduled Referrals Name Type Priority Associated Diagnoses Orde r Schedule EXTERNAL MEDICAL ONCOLOGY REFERRAL Outpatient Referral Routine Malignant neoplasm of upper-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, unspecified estrogen receptor status (HCC) Expected: 06/20/2022, Expires: 06/20/2023 EXTERNAL HEMATOLOGY ONCOLOGY REFERRAL Outpatient Referral Routine Malignant neoplasm of upper-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, unspecified estrogen receptor status (HCC) Expected: 06/20/2022, Expires: 06/20/2023 documented as of this encounter Visit Diagnoses Diagnosis Malignant neoplasm of upper-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, unspecified estrogen receptor status (HCC)- Primary documented in this encounter Additional Health Concerns Assessment Noted Time PHQ-9 Depression Total Score: 0 07/21/19 21 3:00 PM CDT documented as of this encounter Care Teams Camp Dishwasher Relationship Specialty Start Date End Date Justen Gale MD #2 [facility] [address] [place] [address] PCP - General Family Medicine 10/17/17 documented as of this encounter
--- OUTSIDE RECORDS SUMMARY | 2024-04-26 02:59 | XMS_ITS | Encounter Summary ---
Author Organization [facility] Address [address] [place] [address] Phone Care Team Providers Care Hoisting Machine Operator Name Role Phone Justen Gale MD Primary Care Provider [phone] Reason for Visit * Reason Onset Date Comments Referral 10/29/2020 Encounter Details Date Type Department Care Team (Late st Contact Info) Description 10/29/2020 Telephone [facility] [address] [place] [address] Justen Gale MD #[address] [address] Referral Social History Tobacco Use Types Packs/Day [...] Telephone Encounter - Berenice Reyes RN - 10/30/2020 1:04 PM CDT LVM to call us back * Telephone Encounter - Justen Gale MD - 10/30/2020 6:51 AM CDT Please call. Maliha, I referred her there for follow up for her history of breast cancer. * Telephone Encounter - Ananda Gutierrez RN - 10/29/2020 4:28 PM CDT Patient calling and states Dr. Gale referred her to a rn transfer/oncologist at [facility].. States she went and was told she needs to see a butcher apprentice to check for autoimmune diseases and there was nothing they could do for her. Was told they could recheck a white count. States she was told she was not sure why patient was there. States daughter took the day off of work and it is difficult for her to get around. States it was an all day trip. States she uses a walker and her back hurts. Caller voiced frustration. Wants a note sent to Dr. Gale. Informed caller that RN will send him a note and call back. Please review and advise Thanks Caller notified that return call may not occur until next business day. Caller agrees and verbalized understanding. documented in this encounter Plan of Treatment Upcoming Encounters Date Type Department Care Team (Late st Contact Info) Description 05/17/2024 2:45 PM NETWORK OPERATIONS ANALYST Office Visit [facility] - Endocrinology - [place] #2 [place] [address] Annel Rod MD #[address] [address] documented as of this encounter Visit Diagnoses Not on filedocumented in this encounter Additional Health Concerns Assessment Noted Time PHQ-9 Depression Total Score: 0 07/21/19 21 3:00 PM CDT documented as of this encounter Care Teams Hoisting Machine Operator Relationship Specialty Start Date End Date Justen Gale MD #2 [place] [address] PCP - General Family Medicine 10/17/17 documented as of this encounter
--- OUTSIDE RECORDS SUMMARY | 2024-04-26 02:59 | XMS_ITS | Encounter Summary ---
Author Organization [facility] Address [address] [facility] [place] [address] Phone Care Team Providers Care Data Analyst Report Writer Name Role Phone Justen Gale MD Primary Care Provider [phone] Reason for Visit * Reason Onset Date Comments COVID-19 Exposure 04/19/2021 Encounter Details Date Type Department Care Team (Late st Contact Info) Description 04/19/2021 Nurse Triage [facility] [address] [place] [address] Justen Gale MD #[address] [address] COVID-19 Exposure Social History Tobacco Use Types Packs/Day Years [...] Miscellaneous Notes * Telephone Encounter - Leah Phan RN - 04/19/2021 5:26 PM HOME FIRE ALARM INSTALLER Situation: exposed 04/16/21 to COVID Call back #: verified Address: verified Background: they were tested 04/17/21. Karly is vaccinated but no booster. Assessment: started getting symptoms this morning and they are getting worse as the day goes on. Migraine CAZARES. Chills Feels like she was running a fever. Having pain in the back of her shoulder blades and her chest. Slight SOB worse laying flat. Denies wheezing and coughing. Very nauseous and weak. Recommendation: agrees to go to ED. user: Med's/allergies: reviewed Pharmacy: verfied See care advice and disposition for guideline. [...] method utilized. Reason for Disposition ? ? MILD difficulty breathing (e.g., minimal/no SOB at rest, SOB with walking, pulse <100) First positive answer recorded, all responses to prior questions were negative. Protocols used: CORONAVIRUS (COVID-19) DIAGNOSED OR [id number] FIRE ALARM INSTALLER documented in this encounter Plan of Treatment Upcoming Encounters Date Type Department Care Team (Late st Contact Info) Description 05/17/2024 2:45 PM HOME FIRE ALARM INSTALLER [facility] - [place] [address] [place] [address] Annel Rod MD #[address] [phone] documented as of this encounter Visit Diagnoses Not on filedocumented in this encounter Additional Health Concerns Assessment Noted Time PHQ-9 Depression Total Score: 0 07/21/19 21 3:00 PM CDT documented as of this encounter Care Teams Data Analyst Report Writer Relationship Specialty Start Date End Date Justen Gale MD #[address] [facility] [address] [address] PCP - General Family Medicine 10/17/17 documented as of this encounter
--- OUTSIDE RECORDS SUMMARY | 2024-04-26 02:59 | XMS_ITS | Encounter Summary ---
Author Organization [facility] Address [address] [address] Phone Care Team Providers Care Retail Store Assistant Name Role Phone Justen Gale MD Primary Care Provider [phone] Reason for Visit * Reason Onset Date Comments Medication Problem 01/06/2021 Encounter Details Date Type Department Care Team (Late st Contact Info) Description 01/06/2021 Telephone [facility] [address] [place] [address] Justen Gale MD #[address] [address] Medication Problem Social History Tobacco Use Types Packs/Day [...] Telephone Encounter - Leah Phan RN - 01/06/2021 1:35 PM CDT Karly's phone isn't working so sent a message to Yesi on FB Zometa infusion yesterday. She noticed last night in her sleep she felt SOB. Today she feels worse SOB Having tremors/shaking. This was ordered by her [place] MD. Told her to contact them, she VU. Told her if her SOB gets worse to take her to ED, she VU. documented in this encounter Plan of Treatment Upcoming Encounters Date Type Department Care Team (Late st Contact Info) Description 05/17/2024 2:45 PM PLASTIC SURGERY ASSISTANT Office Visit [facility] - Endocr[facility]ology - [place] #2 [place] [address] Annel Rod MD #2 [facility] [address] [place] [address] documented as of this encounter Visit Diagnoses Not on filedocumented in this encounter Additional Health Concerns Assessment Noted Time PHQ-9 Depression Total Score: 0 07/21/19 21 3:00 PM CDT documented as of this encounter Care Teams Retail Store Assistant Relationship Specialty Start Date End Date Justen Gale MD #2 [facility] [address] [place] [address] PCP - General Family Medicine 10/17/17 documented as of this encounter
--- OUTSIDE RECORDS SUMMARY | 2024-04-26 02:59 | XMS_ITS | Encounter Summary ---
Author Organization [facility] Address [address] [place] [address] Phone Care Team Providers Care Cracker Off Name Role Phone Justen Gale MD Primary Care Provider [phone] Reason for Visit * Reason Onset Date Comments Leg Pain 05/31/2021 Encounter Details Date Type Department Care Team (Late st Contact Info) Description 05/31/2021 Nurse Triage [facility] [address] [place] [address] Justen Gale MD #[address] [address] Leg Pain Social History Tobacco Use Types [...] Coronavirus / COVID-19? Yes 05/06/2021 6:58 PM DIESEL MECHANIC APPRENTICE documented as of this encounter Miscellaneous Notes * Telephone Encounter - Arely Santacruz RN - 05/31/2021 3:23 PM CST SITUATION: Bilateral leg pain BACKGROUND: Covid positive 04/19 History: Diabetic, hypertension, DVT, PE(Takes Xarelto) Surgery for lower back cancelled ASSESSMENT: Symptom Description / Location: Extreme pain in knees. 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 Thinks left leg is swollen more than the right leg. Uses walker to assist with walking at times. Pain near belly button and on right side of abdomen. Radiates up to ribs. Numbness and tingling in both hands, pain is waking her up at night. Fatigued. Some shortness of breath but has improved. Feels that she is having post Covid symptoms. Denies chest pain. Denies rashes. Pain (0-10): 7/10 Temp: Denies Treatment / Response: [place] RECOMMENDATION: See care advice and disposition for Guideline First positive answer recorded, all responses to prior questions were negative. If symptoms increase, change or if new symptoms develop, call your HCP or call back. Recommendations were based on caller information and is not a diagnosis. Verified and reviewed all triage information with caller. Reason for Disposition ??? Thigh, calf, or ankle swelling in only one leg Protocols used: LEG PAIN-A-OH Recommendation is for ED. Patient is agreeable and will be evaluated today. Routing to provider. EL MECHANIC APPRENTICE documented in this encounter Plan of Treatment Upcoming Encounters Date Type Department Care Team (Late st Contact Info) Description 05/17/2024 2:45 PM DIESEL MECHANIC APPRENTICE Office Visit [facility] - Endocrinology - [place] [address] [place] [phone] Annel Rod MD #[address] [phone] documented as of this encounter Visit Diagnoses Not on filedocumented in this encounter Additional Health Concerns Assessment Noted Time PHQ-9 Depression Total Score: 0 07/21/19 21 3:00 PM CDT documented as of this encounter Care Teams Cracker Off Relationship Specialty Start Date End Date Justen Gale MD #[address] [address] PCP - General Family Medicine 10/17/17 documented as of this encounter
--- OUTSIDE RECORDS SUMMARY | 2024-04-26 02:59 | XMS_ITS | Encounter Summary ---
Author Organization [facility] Address [address] [place] [address] Phone Care Team Providers Care Meat And Seafood Manager Name Role Phone Justen Gale MD Primary Care Provider [phone] Reason for Referral * Consult, Test & Initiate Treatment (Routine) - Canceled Specialty Diagnoses / Procedures Referred By Contac t Referred To Contact Endocrinology Diagnoses Type 2 diabetes mellitus with diabetic polyneuropathy, with long-term current use of insulin ([facility]) Justen Gale MD #[address] [address] Phone: tel: fax: [facility] - Endocrinology [facility] [address] [place] [address] Phone: tel: fax: Referral ID Status Reason Start Date Expiration Date V isits Requested Visits Authorized [id number] Canceled 07/27/2021 1 11 Scheduling Instructions Karly is being referred for [id number], [id number] Please contact patient for scheduling questions or concerns. Reason for Visit * Reason Onset Date Comments Referral 07/27/2021 Encounter Details Date Type Department Care Team ([facility] st Contact Info) Description 07/27/2021 Telephone [facility] - Endocr[facility]ology - [place] [address] [place] [phone] Annel Rod MD [address] [phone] Referral Social History Tobacco Use Types Packs/Day [...] Telephone Encounter - Stacy Huang RN - 07/27/2021 9:04 AM CDT Referral pended * Telephone Encounter - Madison Mccray CMA - 07/27/2021 8:11 AM CDT Patient has an upcoming appointment with Dr. Rod, we are needing a new referral placed so we can obtain an insurance referral. Thank you! documented in this encounter Plan of Treatment Upcoming Encounters Date Type Department Care Team (Late Contact Info) Description 05/17/2024 2:45 PM SEAL DELIVERY VEHICLE OFFICER [facility] Visit [facility] - Endocrinology - [place] [address] [place] [phone] Annel Rod MD #[address] [phone] Scheduled Referrals Name Type Priority Associated Diagnoses Order Schedule ENDOCRINOLOGY REFERRAL Outpatient Referral Routine Type 2 diabetes mellitus with diabetic polyneuropathy, with long-term current use of insulin (HCC) Expected: 07/26/2022, Expires: 01/25/2023 documented as of this encounter Visit Diagnoses Diagnosis Type 2 diabetes mellitus with diabetic polyneuropathy, with long-term current use of insulin (HCC)- Primary documented in this encounter Additional Health Concerns Assessment Noted Time PHQ-9 Depression Total Score: 0 07/21/19 21 3:00 PM CDT documented as of this encounter Care Teams Meat And Seafood Manager Relationship Specialty Start Date End Date Justen Gale MD #[address] [address] PCP - General Family Medicine 10/17/17 documented as of this encounter
--- OUTSIDE RECORDS SUMMARY | 2024-04-26 02:59 | XMS_ITS | Encounter Summary ---
Author Organization [facility] Address [address] [place] [address] Phone Care Team Providers Care Home Appliances Mechanic Name Role Phone Justen Gale MD Primary Care Provider Reason for Visit * Reason Onset Date Comments Erroneous Encounter - Disregard 10/16/2020 Encounter Details Date Type Department Care Team (Late st Contact Info) Description 10/16/2020 Telephone [facility] [address] [place] [address] Justen Gale MD #[address] [address] Erroneous Encounter - Disregard Social History Tobacco [...] encounter Miscellaneous Notes * Telephone Encounter - Marce Abel, RN - 10/16/2020 1:49 PM CDT Opened in error documented in this encounter Plan of Treatment Upcoming Encounters Date Type Department Care Team (Late st Contact Info) Description 05/17/2024 2:45 PM HEAVY ANTIARMOR WEAPONS INFANTRYMAN Office Visit [facility] - Endocrinology - [place] [address] [place] [phone] Annel Rod MD #2 [facility] [address] [place] [address] documented as of this encounter Visit Diagnoses Not on filedocumented in this encounter Additional Health Concerns Assessment Noted Time PHQ-9 Depression Total Score: 0 07/21/19 21 3:00 PM CDT documented as of this encounter Care Teams Home Appliances Mechanic Relationship Specialty Start Date End Date Justen Gale MD #2 [facility] [address] [place] [address] PCP - General Family Medicine 10/17/17 documented as of this encounter
--- OUTSIDE RECORDS SUMMARY | 2024-04-26 02:59 | XMS_ITS | Encounter Summary ---
Author Organization [facility] Address [address] [address] Phone Care Team Providers Care Form Presser Name Role Phone Justen Gale MD Primary Care Provider [phone] Reason for Visit * Reason Onset Date Comments Abdominal Pain 10/14/2020 missed call 10/14/2020 Chest Discomfort 10/14/2020 Encounter Details Date Type Department Care Team (Late st Contact Info) Description 10/14/2020 Nurse Triage [facility] Call [facility] [address] [place] [phone] Justen Gale MD #[address] [address] Abdominal Pain; missed call; Chest Discomfort Social History Tobacco Use Types Packs/Day Years [...] Miscellaneous Notes * Telephone Encounter - Marce Abel RN - 10/16/2020 1:51 PM CDT SITUATION: Chest heaviness feels like pressure on chest and stomach BACKGROUND: Symptoms have been present for 2-3 months but getting worse and happening more often ASSESSMENT: Symptom Description / Location: Symptoms have been coming more frequently short of breath today while cleaning house and when eats anything Feels like upper chest and stomach heaviness Light headed Sweaty Nausea States has had this in past Patient tearful on phone states last time she was at ED they were mean to her and told her they could not help her Denied racing heart, Palpitations chest pain, fever Pain (0-10): Temp: Treatment / Response: no treatment done. LMP / / : NA RECOMMENDATION: See care advice and disposition for Guideline First positive answer recorded, all responses to prior questions were negative. If symptoms increase, change or if new symptoms develop, call your HCP or call back. Recommendations were based on caller information and is not a diagnosis. Verified and reviewed all triage information with caller. Patient advised to go to ED now for evaluation Reason for Disposition ??? Difficulty breathing Protocols used: CHEST PAIN-A-OH * Telephone Encounter - Sakshi Gardner RN - 10/14/2020 5:28 PM CDT Called patient back for update on how she is feeling and if she ended up going to the hospital. Verified name and date of . She states she feels much better. Patient is much more calm, is breathing much better and does not sound like she is in pain. She advised she did not go to the ED. She was able to make an appointment with the [facility] for the first week in November, and is on a list to call if there are any cancellations. Patient states she will call us back with any new or worsening symptoms, questions or concerns. * Telephone Encounter - Sakshi Gardner RN - 10/14/2020 4:05 PM CDT This RN will call back in 2 hours to check on patient. * Telephone Encounter - Sakshi Gardner RN - 10/14/2020 3:27 PM CDT SITUATION (caller perception/concerns): Abdominal pain and missed call BACKGROUND (events leading up to call): Patient is calling stating she missed a phone call from [facility]. No information found on chart to relay to patient. Patient is tearful, states she is is having awful abdominal pain and has had for months . She states that she has been to the ED several times for this and they just say that they can't do anythingfor me, that I need to see a icu staff nurse. ASSESSMENT: last bowel movement 2 days ago. In the middle of the night, patient gets shaky, short of breath, nauseated and feels better for a while after having a bowel movement. PAIN: lower abdomen-patient is in tears and is short of breath. States it is worse after she eats, but is no better with bland diet OTHER SYMPTOMS: nausea, shortness of breath, shakiness. TREATMENTS: Not on stool softener or laxative. Patient states she has been treated for the pain in the ED, but only has her back pain medication at home. Reglan was ordered but was too expensive. Advised patient that a letter had been sent to her regarding her referral for a gastro doctor's appointment. Gave patient the phone number and then magalys transferred her to Darcy at that office. RECOMMENDATION: Advised that patient have a family member take her to the hospital. Magalys transferred patient to Gastroenterology office where her referral was sent. See care advice and disposition for guideline. [...] st Contact Info) Description 05/17/2024 2:45 PM DYNAMITE RECLAIMER [facility] - Endocrinology [facility] #[address] [place] [address] Annel Rod MD #2 [facility] [address] [place] [address] documented as of this encounter Visit Diagnoses Not on filedocumented in this encounter Additional Health Concerns Assessment Noted Time PHQ-9 Depression Total Score: 0 07/21/19 21 3:00 PM CDT documented as of this encounter Care Teams Form Presser Relationship Specialty Start Date End Date Justen Gale MD #2 [facility] [address] [place] [address] PCP - General Family Medicine 10/17/17 documented as of this encounter
--- OUTSIDE RECORDS SUMMARY | 2024-04-26 02:59 | XMS_ITS | Encounter Summary ---
Author Organization [facility] Address [address] [place] [address] Phone Care Team Providers Care Motorcycle Repairer Name Role Phone Justen Gale MD Primary Care Provider [phone] Reason for Visit * Reason Onset Date Comments Labs Only 05/19/2021 Encounter Details Date Type Department Care Team (Late st Contact Info) Description 05/19/2021 Telephone [facility] [address] [place] [address] Justen Gale MD #[address] [address] Labs Only Social History Tobacco Use Types Packs/Day [...] Coronavirus / COVID-19? Yes 05/06/2021 6:58 PM RETAIL ACCOUNT REPRESENTATIVE documented as of this encounter Miscellaneous Notes * Telephone Encounter - Stacy Huang RN - 05/19/2021 10:56 AM RETAIL ACCOUNT REPRESENTATIVE Called and spoke with Daisy at [facility] to let her know that patient has not been seen here since August. Called and talked with patient about setting up an appointment and she will call back after she hasthis surgery, if they do it. [place] ACCOUNT REPRESENTATIVE * Telephone Encounter - Justen Gale MD - 05/19/2021 10:35 AM CST Please call I have no recent sed rate on her or crp In general her wbc counts have been fine. She needs ov with me to work up abnormal labs. I havent seen her since 09/11 [place] ACCOUNT REPRESENTATIVE * Telephone Encounter - Miracle Luna - 05/19/2021 10:23 AM CST Daisy from Dr. Betty Smith,s office calling Patient is having spinal cord stimulator implant at [facility] [place] Monday05/21/20 Her preop blood work showed WBC slightly elevated as well as CRP and sed rate were also elevated Is it normal for her to have these levels elevated? Dr. Smith typically will not perform surgery on patient's with these levels elevated. Please advise and call Daisy back [place] ACCOUNT REPRESENTATIVE documented in this encounter Plan of Treatment Upcoming Encounters Date Type Department Care Team (Late st Contact Info) Description 05/17/2024 2:45 PM RETAIL ACCOUNT REPRESENTATIVE Office Visit [facility] - Endocrinology - [place] [address] [place] [address] Annel Rod MD #[address] [phone] documented as of this encounter Visit Diagnoses Not on filedocumented in this encounter Additional Health Concerns Assessment Noted Time PHQ-9 Depression Total Score: 0 07/21/19 21 3:00 PM CDT documented as of this encounter Care Teams Motorcycle Repairer Relationship Specialty Start Date End Date Justen Gale MD #[address] [address] PCP - General Family Medicine 10/17/17 documented as of this encounter
--- OUTSIDE RECORDS SUMMARY | 2024-04-26 02:59 | XMS_ITS | Encounter Summary ---
Author Organization [facility] Address [address] [place] [address] Phone Care Team Providers Care Order Administrator Name Role Phone Justen Gale MD Primary Care Provider [phone] Reason for Referral * Consult, Test & Initiate Treatment (Routine) - Closed Specialty Diagnoses / Procedures Referred By Contac t Referred To Contact Diagnoses Chronic low back pain, unspecified back pain laterality, unspecified whether sciatica present Justen Gale MD #[address] [address] Phone: tel: fax: Referral ID Status Reason Start Date Expiration Date Visits Re quested Visits Authorized [id number] Closed 06/02/2021 24 24 Scheduling Instructions Karly is being referred to Taylor Smith or other specialist in patient's insurance network for m54.17. See below for Karly's current medications, allergies [...] to 59.9 in adult (HCC) Thyroid nodule ER SORTING MACHINE OPERATOR Reason for Visit * Reason Onset Date Comments Referral 06/02/2021 Encounter Details Date Type Department Care Team (Late st Contact Info) Description 06/02/2021 Telephone [facility] - [place] #[address] [place] [address] Justen Gale MD #[address] [address] Referral Social History Tobacco Use Types Packs/Day [...] Coronavirus / COVID-19? Yes 05/06/2021 6:58 PM LETTER SORTING MACHINE OPERATOR documented as of this encounter Miscellaneous Notes * Telephone Encounter - Stacy Huang RN - 06/02/2021 1:59 PM CST Received fax from Taylor Smith MD office for new referral. Referral Pended for approval ER SORTING MACHINE OPERATOR documented in this encounter Plan of Treatment Upcoming Encounters Date Type Department Care Team (Late st Contact Info) Description 05/17/2024 2:45 PM LETTER SORTING MACHINE OPERATOR Office Visit [facility] - Endocrinology [facility] #[address] [place] [address] Annel Rod MD #2 [facility] [address] [place] [address] Scheduled Referrals Name Type Priority Associated Diagnoses Orde r Schedule EXTERNAL PAIN REFERRAL Outpatient Referral Routine Chronic low back pain, unspecified back pain laterality, unspecified whether sciatica present Expected: 06/02/2021, Expires: 06/02/2022 documented as of this encounter Visit Diagnoses Diagnosis Chronic low back pain, unspecified back pain laterality, unspecified whether sciatica present- Primary documented in this encounter Additional Health Concerns Assessment Noted Time PHQ-9 Depression Total Score: 0 07/21/19 21 3:00 PM CDT documented as of this encounter Care Teams Order Administrator Relationship Specialty Start Date End Date Justen Gale MD #2 [facility] [address] [place] [address] PCP - General Family Medicine 10/17/17 documented as of this encounter
--- OUTSIDE RECORDS SUMMARY | 2024-04-26 02:59 | XMS_ITS | Encounter Summary ---
Author Organization [facility] Address [address] [place] [address] Phone Care Team Providers Care Validation Intern Name Role Phone Justen Gale MD Primary Care Provider [phone] Reason for Visit * Reason Onset Date Comments Medication Refill 03/09/2021 Encounter Details Date Type Department Care Team (Late st Contact Info) Description 03/09/2021 Refill [facility] - Endocrinology - [place] #2 [place] [address] Annel Rod MD #[address] [address] Medication Refill Social History Tobacco [...] COVID-19? No / Unsure 03/02/2021 5:05 PM WATER ENGINEER documented as of this encounter Miscellaneous Notes * Telephone Encounter - Madison Mccray CMA - 03/09/2021 10:07 AM WATER ENGINEER Patient requesting refill on Lancets, script pended. R ENGINEER documented in this encounter Plan of Treatment Upcoming Encounters Date Type Department Care Team (Late st Contact Info) Description 05/17/2024 2:45 PM WATER ENGINEER Office Visit [facility] - Endocrinology - [place] #[address] [place] [phone] Annel Rod MD #2 [facility] [address] [place] [address] documented as of this encounter Visit Diagnoses Not on filedocumented in this encounter Additional Health Concerns Assessment Noted Time PHQ-9 Depression Total Score: 0 07/21/19 21 3:00 PM CDT documented as of this encounter Care Teams Validation Intern Relationship Specialty Start Date End Date Justen Gale MD #2 [facility] [address] [place] [address] PCP - General Family Medicine 10/17/17 documented as of this encounter
--- OUTSIDE RECORDS SUMMARY | 2024-04-26 02:59 | XMS_ITS | Encounter Summary ---
Author Organization [facility] Address [address] [place] [address] Phone Care Team Providers Care Curriculum Supervisor Name Role Phone Justen Gale MD Primary Care Provider [phone] Reason for Referral * Consult, Test & Initiate Treatment (Routine) - Canceled Specialty Diagnoses / Procedures Referred By Contac t Referred To Contact Diagnoses Diabetic gastroparesis (HCC) Justen Gale MD #[address] [address] Phone: tel: fax: Referral ID Status Reason Start Date Expiration Date V isits Requested Visits Authorized [id number] Canceled 11/22/2020 1 1 Scheduling Instructions Karly is being referred to [facility]/Dr Santana or other specialist in patient's insurance network for evaluation, diagnostic testing and treatment. See below for Karly's current medications, allergies [...] times daily., Disp: 180 Tablet, Rfl: 3 Polyethylene Glycol 3350 (MIRAL[place] PO), Take by [...] Care Team (Late st Contact Info) Description 11/20/2020 Telephone [facility] [place] #2 [place] [address] Justen Gale MD #2 [facility] [address] [place] [address] Social History Tobacco Use Types Packs/Day Years [...] Telephone Encounter - Elma Sykes RN - 11/20/2020 6:55 PM CDT Received request for insurance referral for this pt to [facility] for diabeticgastroparesis. Pended referral. documented in this encounter Plan of Treatment Upcoming Encounters Date Type Department Care Team (Late st Contact Info) Description 05/17/2024 2:45 PM REGIONAL RECRUITER Office Visit [facility] - Endocrinology - [place] #2 [place] [address] Annel Rod MD #2 [facility] [address] [place] [address] Scheduled Referrals Name Type Priority Associated Diagnoses Orde r Schedule EXTERNAL GASTROENTEROLOGY REFERRAL Outpatient Referral Routine Diabetic gastroparesis (HCC) Expected: 03/29/2023, Expires: 09/28/2023 documented as of this encounter Visit Diagnoses Diagnosis Diabetic gastroparesis (HCC)- Primary Type II or unspecified type diabetes mellitus with neurological manifestations, not stated as uncontrolled documented in this encounter Additional Health Concerns Assessment Noted Time PHQ-9 Depression Total Score: 0 07/21/19 21 3:00 PM CDT documented as of this encounter Care Teams Curriculum Supervisor Relationship Specialty Start Date End Date Justen Gale MD #[address] [address] PCP - General Family Medicine 10/17/17 documented as of this encounter
--- OUTSIDE RECORDS SUMMARY | 2024-04-26 02:59 | XMS_ITS | Encounter Summary ---
Author Organization [facility] Address [address] [place] [address] Phone Care Team Providers Care Human Factors Specialist Name Role Phone Justen Gale MD Primary Care Provider [phone] Reason for Visit * Reason Onset Date Comments Back Pain 03/02/2021 Arm Pain 03/02/2021 Encounter Details Date Type Department Care Team (Late st Contact Info) Description 03/02/2021 [facility] [address] [place] [phone] Justen Gale MD #[address] [address] Back Pain; Arm Pain Social History Tobacco Use Types Packs/Day [...] COVID-19? No / Unsure 03/02/2021 5:05 PM COOPERATIVE MANAGER documented as of this encounter Miscellaneous Notes * Telephone Encounter - Annette Pike RN - 03/02/2021 4:53 PM COOPERATIVE MANAGER SITUATION: Back and right arm pain BACKGROUND: Patient has chronic generalized back pain States she has bulging discs throughout her spine Patient states she has an appointment with pain management on 03/11 Patient is going to have a stimulator placed in her spine soon -will help with pain ASSESSMENT: Right arm pain woke patient from her sleep last night and today Right arm pain is radiating and intermittent, 5-6/10 States her arm feels heavy and weird Patient is able to tow picker items with her right hand, but feels like she has to put a lot of effortinto lifting her arm up When patient woke up from her nap today, she felt nauseated, states it has resolved now Patient denies recent injury or heavy lifting Denies redness, swelling, bruising to right arm, fever, chest pain, shortness of breath Patient has chronic numbness and states is unchanged Back pain is 7/10-hydrocodone for pain does help, but doesn't last-states it helps for 2-3 hours RECOMMENDATION: See care advice and disposition for Guideline Advised patient to go to ED Patient verbalized understanding, and agreeable to recommendations MyChart in use First positive answer recorded, all responses to prior questions were negative. If symptoms increase, change or if new symptoms develop, call your HCP or call back. Recommendations were based on caller information and is not a diagnosis. Verified and reviewed all triage information with caller. Reason for Disposition ??? Patient sounds very sick or weak to the triager Protocols used: ARM PAIN-A-AH ERATIVE MANAGER documented in this encounter Plan of Treatment Upcoming Encounters Date Type Department Care Team (Late st Contact Info) Description 05/17/2024 2:45 PM COOPERATIVE MANAGER Office Visit [facility] - Endocrinology - [place] #2 [place] [address] Annel Rod MD #[address] [address] documented as of this encounter Visit Diagnoses Not on filedocumented in this encounter Additional Health Concerns Assessment Noted Time PHQ-9 Depression Total Score: 0 07/21/19 21 3:00 PM CDT documented as of this encounter Care Teams Human Factors Specialist Relationship Specialty Start Date End Date Justen Gale MD [address] [facility] [address] [place] [address] PCP - General Family Medicine 10/17/17 documented as of this encounter
--- OUTSIDE RECORDS SUMMARY | 2024-04-26 02:59 | XMS_ITS | Encounter Summary ---
Author Organization [facility] [employer] Care Team Providers Care Business Transformation Analyst Name Role Phone Justen Gale MD Primary Care Provider Encounter Details Date Type Department Care Team (Latest Contact Info) Description 07/27/2021 Travel Social History Tobacco Use Types Packs/Day [...] Contact Info) Description 05/17/2024 2:45 PM REGIONAL FLATBED TRUCK DRIVER Office [facility] - [facility] - [place] #[address] [place] [address] Annel Rod MD [address] [address] documented as of this encounter Visit Diagnoses Not on filedocumented in this encounter Additional Health Concerns Assessment Noted Time PHQ-9 Depression Total Score: 0 07/21/19 21 3:00 PM CDT documented as of this encounter Care Teams Business Transformation Analyst Relationship Specialty Start Date End Date Justen Gale MD #2 [place] [address] PCP - General Family Medicine 10/17/17 documented as of this encounter
--- OUTSIDE RECORDS SUMMARY | 2024-04-26 02:59 | XMS_ITS | Encounter Summary ---
Author Organization [employer] Care Team Providers Care Software Engineering Associate Manager Name Role Phone Justen Gale MD Primary Care Provider [phone] Encounter Details Date Type Department Care Team (Latest Contact Info) Description 09/29/2020 Travel Social History Tobacco Use Types Packs/Day [...] st Contact Info) Description 05/17/2024 2:45 PM HUMAN DEVELOPMENT PROFESSOR Office Visit [facility] - [facility] - [place] [address] [place] [address] Annel Rod MD [address] [address] documented as of this encounter Visit Diagnoses Not on filedocumented in this encounter Additional Health Concerns Assessment Noted Time PHQ-9 Depression Total Score: 0 07/21/19 21 3:00 PM CDT documented as of this encounter Care Teams Software Engineering Associate Manager Relationship Specialty Start Date End Date Justen Gale MD #2 [place] [id number] PCP - General Family Medicine 10/17/17 documented as of this encounter
--- OUTSIDE RECORDS SUMMARY | 2024-04-26 02:59 | XMS_ITS | Encounter Summary ---
Author Organization [facility] Address [address] [place] [address] [place] [address] Phone Care Team Providers Care Dental Receptionist Name Role Phone Justen Gale MD Primary Care Provider Reason for Visit * Reason Onset Date Comments Referral 11/24/2020 Encounter Details Date Type Department Care Team (Late st Contact Info) Description 11/24/2020 Telephone [facility] [address] [place] [address] Justen Gale MD #[address] [address] Referral Social History Tobacco Use Types Packs/Day [...] encounter Miscellaneous Notes * Telephone Encounter - Flavia Velazquez RN - 11/24/2020 9:42 AM CDT Patient states gastro office does not have insurance approval, called audrey at the referral department and advised that information was faxed to the office, she will refax. documented in this encounter Plan of Treatment Upcoming Encounters Date Type Department Care Team (Late st Contact Info) Description 05/17/2024 2:45 PM GUEST REQUEST RUNNER Office Visit [facility] - Endocrin[facility] #2 [place] [address] Annel Rod MD #2 [facility] [address] [place] [address] documented as of this encounter Visit Diagnoses Not on filedocumented in this encounter Additional Health Concerns Assessment Noted Time PHQ-9 Depression Total Score: 0 07/21/19 21 3:00 PM CDT documented as of this encounter Care Teams Dental Receptionist Relationship Specialty Start Date End Date Justen Gale MD #2 [facility] [address] [place] [address] PCP - General Family Medicine 10/17/17 documented as of this encounter
--- OUTSIDE RECORDS SUMMARY | 2024-04-26 02:59 | XMS_ITS | Encounter Summary ---
Author Organization [facility] Address [address] [place] [address] Phone Care Team Providers Care Hardware Press Operator Name Role Phone Justen Gale MD Primary Care Provider [phone] Reason for Visit * Reason Onset Date Comments Tongue Swelling 03/14/2021 Encounter Details Date Type Department Care Team (Late st Contact Info) Description 03/14/2021 Nurse Triage [facility] [address] [place] [address] Justen Gale MD #[address] [address] Tongue Swelling Social History Tobacco Use Types Packs/Day [...] COVID-19? No / Unsure 03/02/2021 5:05 PM DRUG COORDINATOR documented as of this encounter Miscellaneous Notes * Telephone Encounter - Tamika Collazo RN - 03/14/2021 7:31 AM DRUG COORDINATOR SITUATION: Tongue swelling x today BACKGROUND: Taking antibiotic, started 4 days ago ASSESSMENT: Symptom Description / Location: States tongue was swollen this morning when she woke up, more on right side Not blocking airway, patient breathing normally swelling not getting worse since waking up, but still present, on antibiotic for 4 days No exposure to anything new within last few hours Temp: denies fever Treatment / Response: benadryl RECOMMENDATION: Patient needs to be seen now. Advised patient to go be seen immediately, patient states she is going to ED for evaluation. Advised patient take at least 25-50mg benadryl, she states she does not haveany more but is going now. See care advice and disposition for Guideline First positive answer recorded, all responses to prior questions were negative. If symptoms increase, change or if new symptoms develop, call your HCP or call back. Recommendations were based on caller information and is not a diagnosis. Verified and reviewed all triage information with caller. Reason for Disposition ??? Swelling began after taking a drug Protocols used: FACE [id number] COORDINATOR documented in this encounter Plan of Treatment Upcoming Encounters Date Type Department Care Team (Late st Contact Info) Description 05/17/2024 2:45 PM DRUG COORDINATOR Office Visit [facility] - Endocrinology - [place] [address] [place] [address] Annel Rod MD [address] [address] documented as of this encounter Visit Diagnoses Not on filedocumented in this encounter Additional Health Concerns Assessment Noted Time PHQ-9 Depression Total Score: 0 07/21/19 21 3:00 PM CDT documented as of this encounter Care Teams Hardware Press Operator Relationship Specialty Start Date End Date Justen Gale MD [address] [address] PCP - General Family Medicine 10/17/17 documented as of this encounter
--- OUTSIDE RECORDS SUMMARY | 2024-04-26 02:59 | XMS_ITS | Encounter Summary ---
Author Organization [facility] Address [address] [place] [address] Phone Care Team Providers Care Procurement Buyer Name Role Phone Justen Gale MD Primary Care Provider [phone] David Roberts APRN, BRAKE REPAIR SUPERVISOR Unavailable [phone] Annel Rod MD Unavailable Reason for Visit * Reason Comments Medication Refill Encounter Details Date Type Department Care Team (Late st Contact Info) Description 03/13/2021 Refill [facility] [address] [place] [address] Justen Gale MD #[address] [address] Medication Refill Social History Tobacco Use Types [...] COVID-19? No / Unsure 03/02/2021 5:05 PM AUTO FINANCE SALES REP documented as of this encounter Plan of Treatment Upcoming Encounters Date Type Department Care Team (Late st Contact Info) Description 05/17/2024 2:45 PM AUTO FINANCE SALES REP Office Visit [facility] Endocrinology [facility] #2 [place] [address] Annel Rod MD #[address] [address] documented as of this encounter Visit Diagnoses Not on filedocumented in this encounter Additional Health Concerns Assessment Noted Time PHQ-9 Depression Total Score: 0 07/21/19 21 3:00 PM CDT documented as of this encounter Care Teams Procurement Buyer Relationship Specialty Start Date End Date Justen Gale MD #[address] [address] PCP - General Family Medicine 10/17/17 David Roberts APRN, BRAKE REPAIR SUPERVISOR #2 [place] [address] Nurse Practitioner Advanced Practice Nurse 01/31/22 Annel Rod MD #[address] [address] Consulting Physician Endocrinology 07/01/22 documented as of this encounter
--- OUTSIDE RECORDS SUMMARY | 2024-04-26 02:59 | XMS_ITS | Encounter Summary ---
Author Organization [facility] Address [address] [facility] [place] [address] Phone Care Team Providers Care Cultural Historian Name Role Phone Justen Gale MD Primary Care Provider Reason for Visit * Reason Onset Date Comments COVID-19 05/08/2021 Fatigue 05/08/2021 Encounter Details Date Type Department Care Team (Late st Contact Info) Description 05/08/2021 Nurse Triage [facility] [address] [place] [address] Justen Gale MD #[address] [address] COVID-19; Fatigue Social History Tobacco Use Types Packs/Day [...] Coronavirus / COVID-19? Yes 05/06/2021 6:58 PM BEHAVIORAL INSTRUCTOR documented as of this encounter Miscellaneous Notes * Telephone Encounter - Deidra Bartholomew RN - 05/08/2021 4:56 PM CST SITUATION (caller perception/concerns): Covid BACKGROUND (events leading up to call): Patient is post covid. She is feeling very fatigued and having mild shortness of breath. She would like advice History: Chart review- DM, HTN ASSESSMENT: Onset: 2 weeks Symptoms: Mild shortness of breath, increased fatigue. Patient states she is not feeling well. Pain: denies pain Temp (route, time): denies temperature Other Symptoms: None Treatment with response: None RECOMMENDATION: Triage nurse reviewed home care and encouraged patient to go to prompt care today or tomorrow for evaluation. See care advice and disposition [...] method utilized. Reason for Disposition ??? [1] COVID-19 diagnosed by positive lab test (e.g., PCR, rapid self-test kit) AND [2] mild symptoms (e.g., cough, fever, others) AND [3] no complications or SOB ??? [1] MILD weakness (i.e., does not interfere with ability to work, go to school, normal activities) AND [2] persists > 1 week Protocols used: CORONAVIRUS (COVID-19) DIAGNOSED OR [id number], WEAKNESS (GENERALIZED) AND [id number] VIORAL INSTRUCTOR documented in this encounter Plan of Treatment Upcoming Encounters Date Type Department Care Team (Late st Contact Info) Description 05/17/2024 2:45 PM BEHAVIORAL INSTRUCTOR Office Visit [facility] - Endocrinology - [place] #2 [place] [address] Annel Rod MD #2 [facility] [address] [place] [address] documented as of this encounter Visit Diagnoses Not on filedocumented in this encounter Additional Health Concerns Assessment Noted Time PHQ-9 Depression Total Score: 0 07/21/19 21 3:00 PM CDT documented as of this encounter Care Teams Cultural Historian Relationship Specialty Start Date End Date Justen Gale MD #2 [facility] [address] [place] [address] PCP - General Family Medicine 10/17/17 documented as of this encounter
--- OUTSIDE RECORDS SUMMARY | 2024-04-26 02:59 | XMS_ITS | Encounter Summary ---
Author Organization [facility] Address [address] [place] [address] Phone Care Team Providers Care Length Control Tester Name Role Phone Justen Gale MD Primary Care Provider [phone] Reason for Referral * Consult, Test & Initiate Treatment (Routine) - Closed Specialty Diagnoses / Procedures Referred By Contac t Referred To Contact Diagnoses Radiculopathy, lumbosacral region Justen Gale MD #[address] [address] Phone: tel: fax: Taylor Smith MD #1 [place] [address] Phone: tel: Referral ID Status Reason Start Date Expiration Date Visits Re quested Visits Authorized [id number] Closed 10/01/2020 1 1 Scheduling Instructions Karly is being referred to Dr Smith or other specialist in patient's insurance network for evaluation, testing and continuation of treatment. See below for Karly's current medications, [...] Visit * Reason Onset Date Comments Referral 10/01/2020 Encounter Details Date Type Department Care Team (Late st Contact Info) Description 10/01/2020 Telephone [facility] - Family Medicine - [place] #2 [place] [address] Justen Gale MD #2 [facility] [address] [place] [address] Referral Social History Tobacco Use Types Packs/Day [...] Telephone Encounter - Elma Sykes RN - 10/01/2020 10:13 AM CDT Received request for more visits from Dr Smith's office, her pain management clinic. Her current referral has , new referral pended for Radiculopathy, lumbosacral region. documented in this encounter Plan of Treatment Upcoming Encounters Date Type Department Care Team (Late Contact Info) Description 05/17/2024 2:45 PM GYNECOLOGICAL ASSISTANT Office Visit [facility] - Endocrinology - [place] #2 [place] [address] Annel Rod MD #2 [facility] [address] [place] [address] documented as of this encounter Procedures Procedure Name Priority Date/Time Associated Diagnosis Comments EXTERNAL PAIN REFERRAL Routine 12:00 AM GYNECOLOGICAL ASSISTANT Radiculopathy, lumbosacral region documented in this encounter Results * EXTERNAL PAIN REFERRAL (05/12/2021 12:00 AM GYNECOLOGICAL ASSISTANT) 05/12/2021 us Justen Gale MD OUTPT REFERRALS EXT/INT Final Result SCAN documented in this encounter Visit Diagnoses Diagnosis Radiculopathy, lumbosacral region- Primary Thoracic or lumbosacral neuritis or radiculitis, unspecified documented in this encounter Additional Health Concerns Assessment Noted Time PHQ-9 Depression Total Score: 0 07/21/19 21 3:00 PM CDT documented as of this encounter Care Teams Length Control Tester Relationship Specialty Start Date End Date Jusetn Gale MD #[address] [address] PCP - General Family Medicine 10/17/17 documented as of this encounter
--- OUTSIDE RECORDS SUMMARY | 2024-04-26 02:59 | XMS_ITS | Encounter Summary ---
Author Organization [facility] [employer] Care Team Providers Care Hand Touch Up Painter Name Role Phone Justen Gale MD Primary Care Provider [phone] Encounter Details Date Type Department Care Team (Latest Contact Info) Description 03/02/2021 Travel Social History Tobacco Use Types Packs/Day [...] COVID-19? No / Unsure 03/02/2021 5:05 PM AUGER SUPERVISOR documented as of this encounter Plan of Treatment Upcoming Encounters Date Type Department Care Team (Late st Contact Info) Description 05/17/2024 2:45 PM AUGER SUPERVISOR Office Visit [facility] - Endocrinology - [place] #[address] [place] [address] Annel Rod MD #[address] [address] documented as of this encounter Visit Diagnoses Not on filedocumented in this encounter Additional Health Concerns Assessment Noted Time PHQ-9 Depression Total Score: 0 07/21/19 21 3:00 PM CDT documented as of this encounter Care Teams Hand Touch Up Painter Relationship Specialty Start Date End Date Justen Gale MD #[address] [address] PCP - General Family Medicine 10/17/17 documented as of this encounter
--- OUTSIDE RECORDS SUMMARY | 2024-04-26 03:00 | XMS_ITS | Encounter Summary ---
Author Organization [facility] Address [address] [place] [address] Phone Care Team Providers Care Grinder Set Up Operator Name Role Phone Justen Gale MD Primary Care Provider [phone] David Roberts APRN, HAND II BLOCKER Unavailable [phone] Annel Rod MD Unavailable Reason for Visit * Reason Onset Date Comments Medication Refill 08/06/2020 Encounter Details Date Type Department Care Team (Late st Contact Info) Description 08/06/2020 Refill [facility] #2 [place] [phone] Justen Gale MD #[address] [address] Medication Refill Social History Tobacco Use Types [...] have Coronavirus / COVID-19? No / Unsure 07/20/2020 3:25 PM CDT documented as of this encounter Miscellaneous Notes * Telephone Encounter - Justen Gale MD - 08/06/2020 4:26 PM CDT Prescription approved. Please call in * Telephone Encounter - Marlys Anderson RN - 08/06/2020 4:21 PM CDT Per nursing clinical judgement, provider to review and approve the medication(s) order(s) if appropriate. Requested Prescriptions Pending Prescriptions Disp Refills Lantus SoloStar 100 UNIT/ML Solution Pen-injector 45 mL 1 Sig: INJECT 50 UNITS SUBCUTANEOUSLY EVERY MORNING Endocrinology: Diabetes - Insulins Passed - 08/06/2020 4:20 PM Passed - Valid encounter within last 12 months Past Office Visits Recent Outpatient Visits 2 weeks ago [facility] Pili [facility] APN, HAND II BLOCKER 2 months ago Increased urinary frequency [facility] Pili Mueller COURIER DELIVERY DRIVER, HAND II BLOCKER 5 months ago Urinary 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 Pili Mueller COURIER DELIVERY DRIVER, HAND II BLOCKER 9 months ago [facility] Upcoming Appointments Future Appointments In 6 days Pili Elkins APN, HAND II BLOCKER [facility] Elias Mcgee [facility] PRESSURE DISPATCHER - Recent and Past Visits Recent Visits Date Type Provider Dept 07/20/20 Office Visit Pili Elkins APN, HAND II BLOCKER [facility] [place] 06/05/20 Office Visit Pili Elkins APN, HAND II BLOCKER [facility] [place] 02/17/20 Office Visit Pili Elkins APN, NETTA [facility] [place] 12/03/19 Office Visit Pili Elkins APN, NETTA [facility] [place] 11/05/19 Telemedicine Justen Gale MD [facility] [place] 07/25/19 Telemedicine [facility] recent visits within past 460 days with a meds authorizing provider and meeting all other requirements Future Appointments Date Type Provider Dept 08/12/20 Appointment Pili Elkins APN, NETTA [facility] [place] Showing future appointments within next 90 days with a meds authorizing provider and meeting all other requirements Passed - Last BP in normal range BP Readings from Last 1 Encounters: 07/20/20 128/76 * Telephone Encounter - Reyna La - 08/06/2020 8:09 AM CDT Received a faxed Rx request from pharmacy. Reordered refill medication(s) requested and pended for nurse and physician/ERIC review. Refill encounter routed to nurse Candelaria's pool for processing. documented in this encounter Plan of Treatment Upcoming Encounters Date Type Department Care Team (Late st Contact Info) Description 05/17/2024 2:45 PM PROGRAMMING DEVELOPMENT PROJECT MANAGER Office Visit [facility] - [facility] - [place] #[address] [place] [address] Annel Rod MD [address] [address] documented as of this encounter Visit Diagnoses Not on filedocumented in this encounter Additional Health Concerns Assessment Noted Time PHQ-9 Depression Total Score: 0 07/21/19 21 3:00 PM CDT documented as of this encounter Care Teams Grinder Set Up Operator Relationship Specialty Start Date End Date Justen Gale MD #2 [facility] [address] [place] [address] PCP - General Family Medicine 10/17/17 David Roberts APRN, HAND II BLOCKER #2 [place] [address] Nurse Practitioner Advanced Practice Nurse 01/31/22 Annel Rod MD #[address] [address] Consulting Physician Endocrinology 07/01/22 documented as of this encounter
--- OUTSIDE RECORDS SUMMARY | 2024-04-26 03:00 | XMS_ITS | Encounter Summary ---
Author Organization [facility] [facility] Care Team Providers Care Spool Tender Name Role Phone Justen Gale MD Primary Care Provider [phone] Encounter Details Date Type Department Care Team (Latest Contact Info) Description 07/16/2020 Travel Social History Tobacco Use Types Packs/Day Years Used Date Smoking Tobacco: Never Smokeless Tobacco: Never Alcohol Use Standard Drinks/Week Comments No 0 (1 standard drink = 0.6 oz pur e alcohol) PHQ-2 Answer Date Recorded PHQ-2 Score 0 12/19/2018 Sexually Active Control Partners Comments Never Comments [...] have Coronavirus / COVID-19? No / Unsure 07/16/2020 10:06 AM CDT documented as of this encounter Plan of Treatment Upcoming Encounters Date Type Department Care Team (Late st Contact Info) Description 05/17/2024 2:45 PM FLUE GAS ANALYST Office Visit [facility] - [place] [address] [place] [address] Annel Rod MD [address] [address] [address] documented as of this encounter Visit Diagnoses Not on filedocumented in this encounter Additional Health Concerns Assessment Noted Time PHQ-9 Depression Total Score: 0 09/08/19 19 1:00 PM CDT documented as of this encounter Care Teams Spool Tender Relationship Specialty Start Date End Date Justen Gale MD #[address] [place] [address] PCP - General Family Medicine 10/17/17 documented as of this encounter
--- OUTSIDE RECORDS SUMMARY | 2024-04-26 03:00 | XMS_ITS | Encounter Summary ---
Author Organization [facility] Address [address] [place] [address] Phone Care Team Providers Care Gas Blender Name Role Phone Justen Gale MD Primary Care Provider [phone] Reason for Visit * Reason Onset Date Comments Form Completion 09/25/2020 Encounter Details Date Type Department Care Team (Late st Contact Info) Description 09/25/2020 Telephone [facility] [address] [place] [address] Justen Gale MD [address] [address] Form Completion Social History Tobacco Use Types Packs/Day Years [...] have Coronavirus / COVID-19? No / Unsure 09/09/2020 8:49 AM CDT documented as of this encounter Miscellaneous Notes * Telephone Encounter - Elma Sykes RN - 09/25/2020 11:29 AM CDT Received request for PCP signature on order form for CPAP supplies from [facility]. Signed and faxed. documented in this encounter Plan of Treatment Upcoming Encounters Date Type Department Care Team (Late st Contact Info) Description 05/17/2024 2:45 PM HEDIS SPECIALIST Office Visit [facility] - Endocrinology - [place] [address] [place] [address] Annel Rod MD #2 [facility] [address] [place] [address] documented as of this encounter Visit Diagnoses Not on filedocumented in this encounter Additional Health Concerns Assessment Noted Time PHQ-9 Depression Total Score: 0 07/21/19 21 3:00 PM CDT documented as of this encounter Care Teams Gas Blender Relationship Specialty Start Date End Date Justen Gale MD #2 [facility] [address] [place] [address] PCP - General Family Medicine 10/17/17 documented as of this encounter
--- OUTSIDE RECORDS SUMMARY | 2024-04-26 03:00 | XMS_ITS | Encounter Summary ---
Author Organization [facility] Address [address] [place] [address] Phone Care Team Providers Care Offender Employment Specialist Name Role Phone Justen Gale MD Primary Care Provider Reason for Visit * Reason Onset Date Comments ED f/u 07/16/2020 Encounter Details Date Type Department Care Team (Late st Contact Info) Description 07/16/2020 Telephone [facility] [address] [place] [address] Justen Gale MD #[address] [address] ED f/u Social History Tobacco Use Types Packs/Day Years [...] Telephone Encounter - Lizzy Umana RN - 07/16/2020 10:06 AM CDT Pt is calling to schedule Hospital/ED/Prompt-Care follow up appointment. Hospital/ED/Prompt-Care Site: ED Records Requested: No: Reason for Hospitalization/ED/Prompt-Care Visit: back pain and body aches Pt states labs were done and her WBC and CRP were elevated Appointment Scheduled: appt scheduled tomorrow with Pili Routed update to provider to notify. documented in this encounter Plan of Treatment Upcoming Encounters Date Type Department Care Team (Late st Contact Info) Description 05/17/2024 2:45 PM WHALE TRAINER Office Visit [facility] - Endocrinology - [place] #2 [place] [address] Annel Rod MD #2 [facility] [address] [place] [address] documented as of this encounter Visit Diagnoses Not on filedocumented in this encounter Additional Health Concerns Assessment Noted Time PHQ-9 Depression Total Score: 0 09/08/19 19 1:00 PM CDT documented as of this encounter Care Teams Offender Employment Specialist Relationship Specialty Start Date End Date Justen Gale MD #2 [facility] [address] [place] [address] PCP - General Family Medicine 10/17/17 documented as of this encounter
--- OUTSIDE RECORDS SUMMARY | 2024-04-26 03:00 | XMS_ITS | Encounter Summary ---
Author Organization [facility] Address [address] [place] [address] Phone Care Team Providers Care Carver Hand Name Role Phone Justen Gale MD Primary Care Provider [phone] Reason for Visit * Reason Onset Date Comments Medication Refill 07/13/2020 Encounter Details Date Type Department Care Team (Late st Contact Info) Description 07/13/2020 Refill [facility] #2 [place] [address] Justen Gale MD #[address] [address] Medication Refill Social History Tobacco Use Types [...] have Coronavirus / COVID-19? No / Unsure 06/29/2020 8:43 AM WILDLIFE BIOLOGIST documented as of this encounter Miscellaneous Notes * Telephone Encounter - Monica Marlysree Leonard RN - 07/13/2020 4:55 PM CDT Medication(s) refilled and signed per [facility] Chronic Medication Refill Standing Order for Pediatricand Adult Patients. Requested Prescriptions Pending Prescriptions Disp Refills ??? lisinopril (PRINIVIL, ZESTRIL) 20 MG Tablet 90 Tablet 1 Sig: Take 1 Tablet by mouth daily. Cardiovascular: FLOYD Inhibitors Passed - 07/13/2020 3:29 PM Passed - Valid encounter within last 12 months Past Office Visits Recent Outpatient Visits 1 month ago Increased urinary frequency [facility] - Pili Mueller APN, CUTCH CLEANER 4 months ago Urinary frequency [facility] Pili Mueller APN CUTCH CLEANER 7 months ago Type 2 diabetes mellitus with diabetic polyneuropathy, with long- term current use of insulin (HCC) [facility] - Pili Mueller APN, CUTCH CLEANER 8 months ago Nausea [facility] - Justen Olmedo MD 11 months ago Nausea [facility] - Justen Olmedo MD Upcoming Appointments Future Appointments In 4 days Nessa Padgett September, PAC [facility] In 2 weeks Annel Rod MD [facility] Medical [facility] Endocrinology - [facility] [employer] - Recent and Past Visits Recent Visits Date Type Provider Dept 06/05/20 Office Visit Pili Elkins APN, CNP [facility] 02/17/20 Office Visit Pili Elkins APN, CNP [facility] 12/03/19 Office Visit Pili Elkins APN, CNP [facility] 11/05/19 Telemedicine Justen Gale MD [facility] 07/25/19 Telemedicine Justen Gale MD [facility] 04/15/19 Office Visit Justen Gale MD [facility] [place] Showing recent visits within past 460 days with a meds authorizing provider and meeting all other requirements Future Appointments No visits were found meeting these conditions. Showing future appointments within next 90 days with a meds authorizing provider and meeting all other requirements Passed - Last BP in normal range BP Readings from Last 1 Encounters: 06/05/20 136/88 * Telephone Encounter - Anastasia Gunderson - 07/13/2020 3:28 PM CDT Received a faxed Rx request from pharmacy. Reordered refill medication(s) requested and pended for nurse and physician/ERIC review. Refill encounter routed to nurse [employer] for processing. documented in this encounter Plan of Treatment Upcoming Encounters Date Type Department Care Team (Late st Contact Info) Description 05/17/2024 2:45 PM WILDLIFE BIOLOGIST Office Visit [facility] - Endocrinology - [place] [address] [place] [address] Annel Rod MD #2 [facility] [address] [place] [address] documented as of this encounter Visit Diagnoses Not on filedocumented in this encounter Additional Health Concerns Assessment Noted Time PHQ-9 Depression Total Score: 0 09/08/19 19 1:00 PM CDT documented as of this encounter Care Teams Carver Hand Relationship Specialty Start Date End Date Justen Gale MD #2 [facility] [address] [place] [address] PCP - General Family Medicine 10/17/17 documented as of this encounter
--- OUTSIDE RECORDS SUMMARY | 2024-04-26 03:00 | XMS_ITS | Encounter Summary ---
Author Organization [facility] Address [address] [place] [address] Phone Care Team Providers Care Enlisted Aircrew/Aerial Observer/Gunner Name Role Phone Justen Gale MD Primary Care Provider [phone] Reason for Visit * Reason Onset Date Comments Results 07/03/2020 Encounter Details Date Type Department Care Team (Late st Contact Info) Description 07/03/2020 Telephone [facility] - [facility]ology - [place] #[address] [place] [address] Nessa Padgett, [facility] #[address] [place] [address] Results Social History Tobacco Use Types Packs/Day [...] COVID-19? 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 Recommend Reglan 5 mg twice daily. If she agrees please pend order for Reglan 5 mg 1 p.o. twice daily for gastroparesis. Follow-up in approximately 4 weeks. L PICKLER documented in this encounter Plan of Treatment Upcoming Encounters Date Type Department Care Team (Late st Contact Info) Description 05/17/2024 2:45 PM STEEL PICKLER Office Visit [facility] - Endocrinology - [place] [address] [place] [address] Annel Rod MD #[address] [address] documented as of this encounter Visit Diagnoses Not on filedocumented in this encounter Additional Health Concerns Assessment Noted Time PHQ-9 Depression Total Score: 0 09/08/19 19 1:00 PM CDT documented as of this encounter Care Teams Enlisted Aircrew/Aerial Observer/Gunner Relationship Specialty Start Date End Date Justen Gale MD #2 [facility] [address] [place] [address] PCP - General Family Medicine 10/17/17 documented as of this encounter
--- OUTSIDE RECORDS SUMMARY | 2024-04-26 03:00 | XMS_ITS | Encounter Summary ---
Author Organization [facility] Address [address] [place] [address] Phone Care Team Providers Care Misdraw Hand Name Role Phone Justen Gale MD Primary Care Provider [phone] Reason for Referral * Consult, Test & Initiate Treatment (Routine) - Closed Specialty Diagnoses / Procedures Referred By Contac t Referred To Contact Diagnoses Diabetic gastroparesis associated with type 2 diabetes mellitus (HCC) Angelito Alegria, ZAMZAM, WOMEN NURSE [address] [address] Phone: tel: fax: [facility] [address] [facility] [address] [place] [address] Phone: tel: fax: Referral ID Status Reason Start Date Expiration Date Visits Re quested Visits Authorized [id number] Closed 09/29/2020 1 1 Scheduling Instructions Karly is being referred for diabetic gastroparesis? Constant N/V. Please contact patient for scheduling questions or concerns. See below for Karly's current medications, allergies [...] (BMI) of 50.0 to 59.9 in adult ([facility]) Thyroid nodule Reason for Visit * Reason Comments Nausea persistant nausea Encounter Details Date Type Department Care Team (Late st Contact Info) Description 09/29/2020 3:30 PM CDT Office Visit [facility] [address] [place] [address] Angelito Alegria, SUPERVISOR PASTE PLANT, WOMEN NURSE [address] [address] Diabetic gastroparesis associated with type 2 diabetes mellitus (HCC) (Primary Dx) Discharge Disposition: Discharged to home [...] Sign Reading Time Taken Comments Blood Pressure 128/70 09/29/2020 3:48 PM CDT Pulse 84 09/29/2020 3:48 PM CDT Temperature 36.8 ??C (98.2 ??F) 09/29/2020 3:48 PM CD T Respiratory Rate 22 09/29/2020 3:48 PM CDT Oxygen Saturation 98% 09/29/2020 3:48 PM CDT Inhaled Oxygen Concentration - - Weight 133.9 kg (295 lb 4.8 oz) 09/29/2020 3:48 PM CDT Height 154.9 cm (5' 1 ) 09/29/2020 3:48 PM CDT Body Mass Index 55.8 09/29/2020 3:48 PM CDT documented in this encounter Progress Notes * Bianca Sanchez RMA - 09/29/2020 3:30 PM CDT Karly Marques, 65 y.o., female is here for Nausea (persistant nausea) Medication Refills: Patient reports/denies need for medication refills. Orders Pended: no Requested Prescriptions No prescriptions requested or ordered in this encounter Home Medications Medication Sig Start Date End Date Taking? Authorizing Provider amitriptyline (ELAVIL) 25 MG Tablet 02/18/19 Yes Tyler Smith MD atorvastatin (LIPITOR) 20 MG Tablet Take 1 Tab by mouth daily. Patient not taking: Reported on 11/18/2019 01/19/18 Annel Rod MD Blood Glucose Monitoring Suppl Device Diagnosis: Diabetes Type 2 Blood testing frequency: 4 times aday 11/21/17 Yes Justen Gale MD exemestane (AROMASIN) 25 MG Tablet Take 25 mg by mouth daily. Yes Tyler Smith MD famotidine (PEPCID) 20 MG Tablet Take 1 Tab by mouth 2 times daily. Patient not taking: Reported on 06/05/2020 02/17/20 Pili Elkins APN, WOMEN NURSE Glucose Blood (ONE TOUCH ULTRA TEST) Strip Test four times daily. 02/11/20 Yes Annel Rod MD HYDROcodone-acetaminophen (NORCO) 7.5-325 MG Tablet TK 1 T PO QID PRN. DO NOT FILL UNTIL Yes Tyler Smith MD Insulin Lispro, 1 Unit Dial, 100 UNIT/ML Solution Pen-injector INJECT 22 UNITS THREE TIMES DAILY BEFORE EACH MEAL. MAX OF 120 UNITS PER DAY 05/05/20 Yes Annel Rod MD Insulin Pen Needle (B-D ULTRAFINE III SHORT PEN) 31G X 8 MM Misc USE SIX TIMES DAILY DIRECTED 02/07/20 Yes Justen Gale MD Lantus SoloStar 100 UNIT/ML Solution Pen-injector INJECT 50 UNITS SUBCUTANEOUSLY EVERY MORNING 08/06/20 Yes Justen Gale MD lisinopril (PRINIVIL, ZESTRIL) 20 MG Tablet Take 1 Tablet by mouth daily. 07/13/20 Yes Justen Gale MD Mirabegron ER 25 MG TABLET SR 24 HR Take 25 mg by mouth. 5/17/21 Yes Tyler Smith MD Misc. Devices Misc Supply and instructions: 09/09/20 Yes Justen Gale MD [facility]. Devices Misc Supply and instructions: 02/25/19 Yes Justen Gale MD ondansetron (ZOFRAN) 4 MG Tablet TAKE 1 TABLET BY MOUTH EVERY 8 HOURS NEEDED FOR NAUSEA 08/07/19 Yes Justen Gale MD ondansetron (ZOFRAN-ODT) 4 MG TABLET DISPERSIBLE Take 4 mg by mouth. Patient not taking: Reported on 09/29/2020 06/25/20 Tyler Smith MD ONETOUCH DELICA LANCETS 33G [facility] 1 Lancet by Does not apply route 4 times daily. 01/19/18 Yes Annel Rod MD oxybutynin (DITROPAN) 5 MG Tablet TAKE 1 TABLET BY MOUTH TWICE DAILY 06/14/19 Yes Justen Gale MD Polyethylene Glycol 3350 (MIRALAX PO) Take by mouth. Yes Tyler Smith MD rivaroxaban (XARELTO) 20 MG Tablet Take 20 mg by mouth daily. Yes Tyler Smith MD rOPINIROLE (REQUIP) 5 MG Tablet TAKE 1 TABLET BY MOUTH EVERY NIGHT 03/09/20 Yes Justen Gale MD tiZANidine (ZANAFLEX) 2 MG Capsule Take 1 Tablet by mouth. 07/10/20 Yes Tyler Smith MD There are no discontinued [...] ??? Dilated Eye Exam Never done ??? Pneumococcal Immunization (0-64 years) (1 of 4 - PCV13) Never done ??? Pap Smear Never done ??? Zoster Immunization (1 of 2) Never done Orders Pended: yes The following BPA's have been addressed with the patient today: Pneumonia, Mammogram and Pap * Bianca Sanchez RMA - 09/29/2020 3:30 PM CDT Pt here for POCT A1C per the order of Angelito Alegria on 09/29/20. Test done by finger stick on rightmiddle finger with no complicattion. Value 7.6%. * Angelito Alegria APN, WOMEN NURSE - 09/29/2020 3:30 PM CDT Subjective: CC: Chronic nausea and vomiting Karly chen is a 65-year-old female who presents to the office today for complaint of chronic nausea and vomiting. States has been going on for many months to years. She did havea delayed gastric emptying study. She states she has seen multiple providers for this and has not gotten any answer. She can not take Reglan due to an allergy. States aggravates her restless leg syndrome. She also complains of intermittent abdominal cramping that happens mostly in the night. She will be very sweaty and feel like she is going to pass out. She did have a bowel movement and then to have relief for symptoms. She also reports lot of bloating and other complaints. No other acute complaints this time. The history is provided by the patient. No speech and language tutor was used. Nausea Associated symptoms include abdominal pain, nausea and vomiting. Pertinent negatives include no arthralgias, chest pain, chills, congestion, coughing, fatigue, fever, headaches, myalgias, numbness, rash or sore throat. Review of Systems Constitutional: Negative for chills, fatigue and fever. HENT: Negative for congestion, ear discharge, ear pain, postnasal drip, sinus pressure, sinus pain,sore throat and trouble swallowing. Eyes: Negative for photophobia, pain and discharge. Respiratory: Negative for cough, chest tightness, shortness of breath and wheezing. Cardiovascular: Negative for chest pain and palpitations. Gastrointestinal: Positive for abdominal distention, abdominal pain, constipation, nausea and vomiting. Negative for diarrhea. Genitourinary: Negative for dysuria, flank pain, frequency, hematuria and urgency. Musculoskeletal: Negative for arthralgias, back pain and myalgias. Skin: Negative for rash and wound. Neurological: Negative for dizziness, seizures, syncope, numbness and headaches. Psychiatric/Behavioral: Negative for suicidal ideas. Allergies Allergies Allergen Reactions ??? Ceftriaxone Anaphylaxis ??? Cephalosporins Anaphylaxis ??? Oxycodone Unknown ??? Reglan [Metoclopramide Hcl] Unknown ??? Trazodone Other (see Comments) Shaky, restlessness, itching, throat swelling Medications Current Outpatient Medications: ??? amitriptyline (ELAVIL) 25 MG Tablet, , Disp: , Rfl: ??? atorvastatin (LIPITOR) 20 MG Tablet, Take 1 Tab by mouth daily. (Patient not taking: Reported on 11/18/2019), Disp: 90 Tab, Rfl: 3 ??? Blood Glucose Monitoring Suppl Device, Diagnosis: Diabetes Type 2 Blood testing frequency: 4 times a day, Disp: 1 Each, Rfl: 0 ??? exemestane (AROMASIN) 25 MG Tablet, Take 25 mg by mouth daily., Disp: , Rfl: ??? famotidine (PEPCID) 20 MG Tablet, Take 1 Tab by mouth 2 times daily. (Patient not taking: Reported on 06/05/2020), Disp: 90 Tab, Rfl: 3 ??? Glucose Blood (ONE TOUCH ULTRA TEST) Strip, Test four times daily., Disp: 400 Strip, Rfl: 3 ??? HYDROcodone-acetaminophen (NORCO) 7.5-325 MG Tablet, TK 1 T PO QID PRN. DO NOT FILL UNTIL 02/13/2019, Disp: , Rfl: 0 ??? Insulin Lispro, 1 Unit Dial, 100 UNIT/ML Solution Pen-injector, INJECT 22 UNITS THREE TIMES DAILY BEFORE EACH MEAL. MAX OF 120 UNITS PER DAY, Disp: 45 mL, Rfl: 1 ??? Insulin Pen Needle (B-D ULTRAFINE III SHORT PEN) 31G X 8 MM [facility], USE SIX TIMES DAILY DIRECTED, Disp: 100 Pen Needle, Rfl: 11 ??? Lantus SoloStar 100 UNIT/ML Solution Pen-injector, INJECT 50 UNITS SUBCUTANEOUSLY EVERY MORNING, Disp: 45 mL, Rfl: 1 ??? lisinopril (PRINIVIL, ZESTRIL) 20 MG Tablet, Take 1 Tablet by mouth daily., Disp: 90 Tablet, Rfl: 1 ??? Mirabegron ER 25 MG TABLET SR 24 HR, Take 25 mg by mouth., Disp: , Rfl: ??? Misc. Devices Misc, Supply and instructions:, Disp: 1 Each, Rfl: 0 ??? Misc. Devices Mis, Supply and instructions:, Disp: 1 Each, Rfl: 0 ??? ondansetron (ZOFRAN) 4 MG Tablet, TAKE 1 TABLET BY MOUTH EVERY 8 HOURS NEEDED FOR NAUSEA, Disp: 15 Tab, Rfl: 9 ??? ondansetron (ZOFRAN-ODT) 4 MG TABLET DISPERSIBLE, Take 4 mg by mouth. (Patient not taking: Reported on 09/29/2020), Disp: , Rfl: ??? ONETOUCH DELICA LANCETS 33G Misc, 1 Lancet by Does not apply route 4 times daily., Disp: 400 Lancet, Rfl: 3 ??? oxybutynin (DITROPAN) 5 MG Tablet, TAKE 1 TABLET BY MOUTH TWICE DAILY, Disp: 180 Tab, Rfl: 2 ??? Polyethylene Glycol 3350 (MIRALAX PO), Take by mouth., Disp: , Rfl: ??? rivaroxaban (XARELTO) 20 MG Tablet, Take 20 mg by mouth daily., Disp: , Rfl: ??? rOPINIROLE (REQUIP) 5 MG Tablet, TAKE 1 TABLET BY MOUTH EVERY NIGHT, Disp: 90 Tab, Rfl: 3 ??? tiZANidine (ZANAFLEX) 2 MG Capsule, Take 1 Tablet by mouth., Disp: , Rfl: Past Medical History Past [...] LAP,INGUINAL HERNIA REPR,INITIAL ??? MASTECTOMY BILATERAL Bilateral 2015 Family History Family History Problem Relation Age [...] Appearance: She is well-developed. She is obese. She [...] and time. Psychiatric: Mood and Affect: Mood is anxious. Affect is tearful. Behavior: Behavior normal. Thought Content: Thought content normal. Judgment: Judgment normal. Vitals: 09/29/20 1548 BP: 128/70 BP Location: Right Arm BP Position: Sitting BP Cuff Size: Regular Pulse: 84 Resp: 22 Temp: 98.2 ??F (36.8 ??C) TempSrc: Temporal SpO2: 98% Weight: 295 lb 4.8 oz (133.9 kg) Height: 5' 1 (1.549 m) Assessment and Plan See Diagnoses, Orders, Follow-up, and Instructions 1. Diabetic gastroparesis associated with type 2 diabetes mellitus (HCC) - GASTROENTEROLOGY REFERRAL; Future Diabetic gastroparesis versus irritable bowel syndrome. Spoke with PCP to have patient see GI. She may possibly benefit from erythromycin therapy. Follow-up with PCP and GI. I discussed all new medications and potential side effects or risks associated with them. Patient is to contact our office with any concerns. Patient instructions and educational materials were given to the patient. Patient (or patient software support representative) demonstrates verbal understanding of instructions given. [...] referring physician. Documentation for this visit on 09/29/20 was completed using a template. I have seen and examined the patient. Everything documented was personally performed at this visit with the necessary additions, deletions and changes made as appropriate. documented in this encounter Plan of Treatment Upcoming Encounters Date Type Department Care Team (Late st Contact Info) Description 05/17/2024 2:45 PM UNEMPLOYMENT INSPECTOR Office Visit [facility] - Endocrinology [facility] [address] [place] [address] Annel Rod MD #[address] [address] Scheduled Referrals Name Type Priority Associated Diagnoses Orde r Schedule GASTROENTEROLOGY REFERRAL Outpatient Referral Routine Diabetic gastroparesis associated with type 2 diabetes mellitus (HCC) Expected: 09/29/2020, Expires: 09/29/2021 documented as of this encounter Procedures Procedure Name Priority Date/Time Associated Diagnosis Comments POCT GLYCOSYLATED HEMOGLOBIN Routine 09/29/2020 4:00 PM CDT Diabetic gastroparesis associated with type 2 diabetes mellitus (HCC) documented in this encounter Results * (ABNORMAL) POCT GLYCOSYLATED HEMOGLOBIN (09/29/2020 4:00 PM CDT) HGB-A1C 7.6(A) 4 - 6 09/29/2020 4:00 PM CDT Angelito Alegria SUPERVISOR PASTE PLANT, WOMEN NURSE POINT OF CARE TE STING (MANUAL) Final Result documented in this encounter Visit Diagnoses Diagnosis Diabetic gastroparesis associated with type 2 diabetes mellitus (HCC)- Primary Type II or unspecified type diabetes mellitus with neurological manifestations, not stated as uncontrolled documented in this encounter Additional Health Concerns Assessment Noted Time PHQ-9 Depression Total Score: 0 07/21/19 21 3:00 PM CDT documented as of this encounter Care Teams Misdraw Hand Relationship Specialty Start Date End Date Justen Gale MD [address] [address] PCP - General Family Medicine 10/17/17 documented as of this encounter
--- OUTSIDE RECORDS SUMMARY | 2024-04-26 03:00 | XMS_ITS | Encounter Summary ---
Author Organization [facility] [employer] Care Team Providers Care Store Director Name Role Phone Justen Gale MD Primary Care Provider [phone] Encounter Details Date Type Department Care Team (Latest Contact Info) Description 06/09/2020 Travel Social History Tobacco Use Types Packs/Day [...] have Coronavirus / COVID-19? No / Unsure 06/09/2020 9:02 AM ENVIRONMENTAL SCIENCE TECHNICIAN documented as of this encounter Plan of Treatment Upcoming Encounters Date Type Department Care Team (Late st Contact Info) Description 05/17/2024 2:45 PM ENVIRONMENTAL SCIENCE TECHNICIAN Office Visit [facility] - Endocr[facility]ology - [place] [address] [place] [address] Annel Rod MD [address] [address] documented as of this encounter Visit Diagnoses Not on filedocumented in this encounter Additional Health Concerns Assessment Noted Time PHQ-9 Depression Total Score: 0 09/08/19 19 1:00 PM CDT documented as of this encounter Care Teams Store Director Relationship Specialty Start Date End Date Justen Gale MD #2 [place] [address] PCP - General Family Medicine 10/17/17 documented as of this encounter
--- OUTSIDE RECORDS SUMMARY | 2024-04-26 03:00 | XMS_ITS | Encounter Summary ---
Author Organization [facility] Address [address] [place] [address] Phone Care Team Providers Care Technology Director Name Role Phone Justen Gale MD Primary Care Provider [phone] Reason for Visit * Reason Comments Medication Refill Encounter Details Date Type Department Care Team (Late st Contact Info) Description 05/03/2020 Refill [facility] - Endocrinology - [place] [address] [place] [address] Annel Rod MD #[address] [address] Medication Refill Social History Tobacco [...] Telephone Encounter - Annel Rod MD - 05/05/2020 4:13 PM CST Rx sent NATAL TECHNICIAN * Telephone Encounter - Jennifer Wang, RN - 05/05/2020 2:13 PM PERINATAL TECHNICIAN Refill request received. Order pended. Requested Prescriptions Pending Prescriptions Disp Refills ??? Insulin Lispro, 1 Unit Dial, 100 UNIT/ML Solution Pen-injector [Pharmacy Med Name: INSULIN LISPRO 100U/ML KWIKPEN 3ML] 45 mL 2 Sig: INJECT 26 UNITS THREE TIMES DAILY BEFORE EACH MEAL. MAX OF 120 UNITS PER DAY Next appt: Message left to schedule follow up. NATAL TECHNICIAN documented in this encounter Plan of Treatment Upcoming Encounters Date Type Department Care Team (Late st Contact Info) Description 05/17/2024 2:45 PM PERINATAL TECHNICIAN Office Visit [facility] - Endocrinology [facility] #[address] [place] [address] Annel Rod MD #2 [facility] [address] [place] [address] documented as of this encounter Visit Diagnoses Not on filedocumented in this encounter Additional Health Concerns Assessment Noted Time PHQ-9 Depression Total Score: 0 09/08/19 19 1:00 PM CDT documented as of this encounter Care Teams Technology Director Relationship Specialty Start Date End Date Justen Gale MD #2 [facility] [address] [place] [address] PCP - General Family Medicine 10/17/17 documented as of this encounter
--- OUTSIDE RECORDS SUMMARY | 2024-04-26 03:00 | XMS_ITS | Encounter Summary ---
Author Organization [facility] Address [address] [place] [address] Phone Care Team Providers Care Data Technician Name Role Phone Justen Gale MD Primary Care Provider [phone] Reason for Referral * Consult, Test & Initiate Treatment (Routine) - Closed Specialty Diagnoses / Procedures Referred By Elyssa benavides Referred To Contact Diagnoses Radiculopathy, lumbosacral region Justen Gale MD #[address] [address] Phone: tel: fax: Referral ID Status Reason Start Date Expiration Date Visits Re quested Visits Authorized [id number] Closed 03/23/2020 1 14 Scheduling Instructions Karly is being referred to Dr Smith or other specialist in patient's insurance network for evaluation, diagnostic testing and treatment. See below for Karly's current medications, allergies and problem list. CURRENT MEDS: Current Outpatient Medications: ? ? amitriptyline (ELAVIL) 25 MG Tablet, , Disp: , Rfl: ? ? atorvastatin (LIPITOR) 20 MG Tablet, Take 1 Tab by mouth daily. (Patient not taking: Reported on 11/18/2019), Disp: 90 Tab, Rfl: 3 ? ? Blood Glucose Monitoring Suppl Device, Diagnosis: Diabetes Type 2 Blood testing frequency: 4 times a day, Disp: 1 Each, Rfl: 0 ? ? exemestane (AROMASIN) 25 MG Tablet, Take 25 mg by mouth daily., Disp: , Rfl: ? ? famotidine (PEPCID) 20 MG Tablet, Take 1 Tab by mouth 2 times daily., Disp: 90 Tab, Rfl: 3 ? ? Glucose Blood (ONE TOUCH ULTRA TEST) Strip, Test four times daily., Disp: 400 Strip, Rfl: 3 ? ? HYDROcodone-acetaminophen (NORCO) 7.5-325 MG Tablet, TK 1 T PO QID PRN. DO NOT FILL UNTIL 02/13/2019, Disp: , Rfl: 0 ? ? Insulin Lispro, 1 Unit Dial, (HUMALOG KWIKPEN) 100 UNIT/ML Solution Pen- injector, INJECT 26 UNITS BEFORE EACH MEAL. ISF OF 1:40>140 MG/DL, UP TO 120 UNITS PER DAY DIRECTED, Disp: 45 mL, Rfl: 2 ? ? Insulin Pen Needle (B-D ULTRAFINE III SHORT PEN) 31G X 8 MM [facility], USE SIX TIMES DAILY DIRECTED, Disp: 100 Pen Needle, Rfl: 11 ? ? LANTUS SOLOSTAR 100 UNIT/ML Solution Pen-injector, INJECT 50 UNITS SUBCUTANEOUSLY EVERY MORNING, Disp: 45 mL, Rfl: 1 ? ? lisinopril (PRINIVIL, ZESTRIL) 20 MG Tablet, TAKE 1 TABLET BY MOUTH DAILY, Disp: 90 Tab, Rfl: 2 ? ? Mis. Devices [facility], Supply and instructions:, Disp: 1 Each, Rfl: 0 ? ? ondansetron (ZOFRAN) 4 MG Tablet, TAKE 1 TABLET BY MOUTH EVERY 8 HOURS NEEDED FOR NAUSEA, Disp: 15 Tab, Rfl: 9 ? ? ONETOUCH DELICA LANCETS 33G Mis, 1 Lancet by Does not apply route 4 times daily., Disp: 400 Lancet, Rfl: 3 ? ? oxybutynin (DITROPAN) 5 MG Tablet, TAKE 1 TABLET BY MOUTH TWICE DAILY, Disp: 180 Tab, Rfl: 2 ? ? Polyethylene Glycol 3350 (MIRALAX PO), Take by mouth., Disp: , Rfl: ? ? rivaroxaban (XARELTO) 20 MG Tablet, Take 20 mg by mouth daily., Disp: , Rfl: ? ? rOPINIROLE (REQUIP) 5 MG Tablet, TAKE 1 TABLET BY MOUTH EVERY NIGHT, Disp: 90 Tab, Rfl: 3 No current facility-administered medications for this visit. ALLERGIES: -- Cephalosporins -- Anaphylaxis -- Oxycodone -- [...] to 59.9 in adult (HCC) Thyroid nodule ND MIXER Encounter Details Date Type Department Care Team (Late st Contact Info) Description 03/23/2020 Telephone [facility] - Family [facility] [address] [place] [address] Justen Gale MD [address] [address] Social History Tobacco Use Types Packs/Day Years [...] Telephone Encounter - Elma Sykes RN - 03/23/2020 2:19 PM CST Received request for referral from [facility] for this pt. Pended referral ND MIXER documented in this encounter Plan of Treatment Upcoming Encounters Date Type Department Care Team (Late st Contact Info) Description 05/17/2024 2:45 PM GROUND MIXER Office Visit [facility] - Endocrinology - [place] #2 [place] [address] Annel Rod MD #2 [facility] [address] [place] [address] documented as of this encounter Results * EXTERNAL PAIN REFERRAL (07/01/2020) Justen Gale MD OUTPT REFERRALS EXT/INT Final Result documented in this encounter Visit Diagnoses Diagnosis Radiculopathy, lumbosacral region- Primary Thoracic or lumbosacral neuritis or radiculitis, unspecified documented in this encounter Additional Health Concerns Assessment Noted Time PHQ-9 Depression Total Score: 0 09/08/19 19 1:00 PM CDT documented as of this encounter Care Teams Data Technician Relationship Specialty Start Date End Date Justen Gale MD #2 [facility] [address] [place] [address] PCP - General Family Medicine 10/17/17 documented as of this encounter
--- OUTSIDE RECORDS SUMMARY | 2024-04-26 03:00 | XMS_ITS | Encounter Summary ---
Author Organization [facility] Address [address] [place] [address] Phone Care Team Providers Care Factory Maintenance Technician Name Role Phone Justen Gale MD Primary Care Provider [phone] Encounter Details Date Type Department Care Team (Late st Contact Info) Description 08/12/2020 Telephone [facility] - Family Medicine [facility] #2 [place] [address] Justen Gale MD #[address] [address] Social History Tobacco Use Types Packs/Day Years [...] encounter Miscellaneous Notes * Telephone Encounter - Danay De La Rosa CMA - 08/12/2020 7:44 AM CDT MyChart messsage sent documented in this encounter Plan of Treatment Upcoming Encounters Date Type Department Care Team (Late st Contact Info) Description 05/17/2024 2:45 PM OPERATIONS PLANT ATTENDANT Office Visit [facility] - Endocrinology - [place] #2 [place] [address] Annel Rod MD #2 [facility] [address] [place] [address] documented as of this encounter Visit Diagnoses Not on filedocumented in this encounter Additional Health Concerns Assessment Noted Time PHQ-9 Depression Total Score: 0 07/21/19 21 3:00 PM CDT documented as of this encounter Care Teams Factory Maintenance Technician Relationship Specialty Start Date End Date Justen Gale MD #2 [facility] [address] [place] [address] PCP - General Family Medicine 10/17/17 documented as of this encounter
--- OUTSIDE RECORDS SUMMARY | 2024-04-26 03:00 | XMS_ITS | Encounter Summary ---
Author Organization [facility] Address [address] [place] [address] Phone Care Team Providers Care De Icer Installer Name Role Phone Justen Gale MD Primary Care Provider [phone] Reason for Referral * Consult, Test & Initiate Treatment (Routine) - Closed Specialty Diagnoses / Procedures Referred By Contac t Referred To Contact Endocrinology Diagnoses Type 2 diabetes mellitus with diabetic polyneuropathy, with long-term current use of insulin ([facility]) Justen Gale MD [address] [address] Phone: tel: fax: [facility] - Endocrinology [facility] [address]2 [place] [address] Phone: tel: fax: Referral ID Status Reason Start Date Expiration Date Visits Re quested Visits Authorized [id number] Closed 07/27/2020 1 11 Scheduling Instructions Karly is being referred for diabetes. Please contact patient for scheduling questions or [...] SUBCUTANEOUSLY EVERY MORNING, Disp: 45 mL, Rfl: 0 lisinopril (PRINIVIL, ZESTRIL) 20 MG Tablet, Take 1 Tablet by mouth daily., Disp: 90 Tablet, Rfl: 1 Misc. Devices Misc, Supply and instructions:, Disp: 1 Each, Rfl: 0 ondansetron (ZOFRAN) 4 MG Tablet, TAKE 1 TABLET BY MOUTH EVERY 8 HOURS NEEDED FOR NAUSEA, Disp: 15 Tab, Rfl: 9 ondansetron (ZOFRAN-ODT) 4 MG TABLET DISPERSIBLE, Take 4 mg by mouth., Disp: , Rfl: ONETOUCH DELICA LANCETS 33G [...] Visit * Reason Onset Date Comments Referral 07/27/2020 Encounter Details Date Type Department Care Team (Late st Contact Info) Description 07/27/2020 Telephone [facility] - Endocrinology [facility] [address] [place] [phone] Annel Rod MD #[address] [phone] Referral Social History Tobacco Use Types Packs/Day [...] Telephone Encounter - Flavia Velazquez RN - 07/27/2020 2:05 PM CDT Patient calling asking about referrals, scheduling number given * Telephone Encounter - Madison Mccray CMA - 07/27/2020 8:39 AM CDT Patient has an upcoming appointment with Dr. Rod, we are needing a new referral placed so we can obtain an insurance referral. Thank you! documented in this encounter Plan of Treatment Upcoming Encounters Date Type Department Care Team (Late st Contact Info) Description 05/17/2024 2:45 PM [employer] Office Visit [facility] - Endocrinology - [place] [address] [place] [phone] Annel Rod MD #[address] [phone] Scheduled Referrals Name Type Priority Associated Diagnoses Order Schedule ENDOCRINOLOGY REFERRAL Outpatient Referral Routine Type 2 diabetes mellitus with diabetic polyneuropathy, with long-term current use of insulin (HCC) Expected: 07/27/2020, Expires: 07/27/2021 documented as of this encounter Visit Diagnoses Diagnosis Type 2 diabetes mellitus with diabetic polyneuropathy, with long-term current use of insulin (HCC)- Primary documented in this encounter Additional Health Concerns Assessment Noted Time PHQ-9 Depression Total Score: 0 07/21/19 21 3:00 PM CDT documented as of this encounter Care Teams De Icer Installer Relationship Specialty Start Date End Date Justen Gale MD [address] [place] [address] PCP - General Family Medicine 10/17/17 documented as of this encounter
--- OUTSIDE RECORDS SUMMARY | 2024-04-26 03:00 | XMS_ITS | Encounter Summary ---
Author Organization [facility] [employer] Care Team Providers Care Voice Over Artist Name Role Phone Justen Gale MD Primary Care Provider Encounter Details Date Type Department Care Team (Latest Contact Info) Description 06/16/2020 Travel Social History Tobacco Use Types Packs/Day [...] have Coronavirus / COVID-19? No / Unsure 06/16/2020 7:04 AM ALARM OPERATOR documented as of this encounter Plan of Treatment Upcoming Encounters Date Type Department Care Team (Late st Contact Info) Description 05/17/2024 2:45 PM ALARM OPERATOR [facility] - [facility] - [place] [address] [place] [address] Annel Rod MD [address] [address] documented as of this encounter Visit Diagnoses Not on filedocumented in this encounter Additional Health Concerns Assessment Noted Time PHQ-9 Depression Total Score: 0 09/08/19 19 1:00 PM CDT documented as of this encounter Care Teams Voice Over Artist Relationship Specialty Start Date End Date Justen Gale MD [address] [place] [address] PCP - General Family Medicine 10/17/17 documented as of this encounter
--- OUTSIDE RECORDS SUMMARY | 2024-04-26 03:00 | XMS_ITS | Encounter Summary ---
Author Organization [facility] Address [address] [place] [address] Phone Care Team Providers Care Major Assembly Lineman Name Role Phone Justen Gale MD Primary Care Provider [phone] Reason for Visit * Reason Onset Date Comments Medication Management 05/07/2020 Encounter Details Date Type Department Care Team (Late st Contact Info) Description 05/07/2020 Telephone [facility] [address] [place] [address] Justen Gale MD #[address] [address] Medication Management Social History Tobacco Use Types [...] encounter Miscellaneous Notes * Telephone Encounter - Dannielle Ferreira RN - 05/07/2020 7:25 PM CST SITUATION (caller perception/concerns): medication management. BACKGROUND (events leading up to call): Patient is out of Lantus insulin. Has been out for 3 days. Blood sugars are now over 400. Normally takes 50 units Lantus every am. Last OV 02/06/[address] Rod, ASSESSMENT: Blood sugar was 472 and she has been feeling sick today with shakes and feeling hot. Drinking extra fluids today. Denies vomiting or fever RECOMMENDATION: POC Dr. Hunt called with background assessment. The following instructions provided: Refill Lantus Solostar 100 unit/ml pen injector; inject 50 units subq every morning; zero refills. TORB. Medication order entered in EHR and sent to preferred pharmacy which is open for another 1.5 hours. Patient called back and advised to product picker her insulin tonight. See care advice and disposition for guideline. [...] and denies further questions. Teach-back method utilized. ING SUPERVISOR documented in this encounter Plan of Treatment Upcoming Encounters Date Type Department Care Team (Late st Contact Info) Description 05/17/2024 2:45 PM COATING SUPERVISOR Office Visit [facility] - Endocrinology [facility] #2 [place] [address] Annel Rod MD #2 [facility] [address] [place] [address] documented as of this encounter Visit Diagnoses Not on filedocumented in this encounter Additional Health Concerns Assessment Noted Time PHQ-9 Depression Total Score: 0 09/08/19 19 1:00 PM CDT documented as of this encounter Care Teams Major Assembly Lineman Relationship Specialty Start Date End Date Justen Gale MD #2 [facility] [address] [place] [address] PCP - General Family Medicine 10/17/17 documented as of this encounter
--- OUTSIDE RECORDS SUMMARY | 2024-04-26 03:00 | XMS_ITS | Encounter Summary ---
Author Organization [facility] Address [address] [place] [address] Phone Care Team Providers Care Tool Procurement Coordinator Name Role Phone Justen Gale MD Primary Care Provider [phone] Reason for Visit * Reason Comments Medication Refill Encounter Details Date Type Department Care Team (Late st Contact Info) Description 05/07/2020 Refill [facility] - [facility] - [place] [address] [place] [address] Annel Rod MD #[address] [address] Medication Refill Social History Tobacco [...] Telephone Encounter - Jennifer Wang RN - 05/11/2020 1:23 PM HOSPICE/HOME HEALTH AIDE Medication(s) refused due to duplicate request. Chart reviewed to insure medication was already refilled at pharmacy that is currently requesting refill. ICE/HOME HEALTH AIDE documented in this encounter Plan of Treatment Upcoming Encounters Date Type Department Care Team (Late st Contact Info) Description 05/17/2024 2:45 PM HOSPICE/HOME HEALTH AIDE Office Visit [facility] - Endocrinology - [place] [address] [place] [address] Annel Rod MD #2 [facility] [address] [place] [address] documented as of this encounter Visit Diagnoses Not on filedocumented in this encounter Additional Health Concerns Assessment Noted Time PHQ-9 Depression Total Score: 0 09/08/19 19 1:00 PM CDT documented as of this encounter Care Teams Tool Procurement Coordinator Relationship Specialty Start Date End Date Justen Gale MD #2 [facility] [address] [place] [address] PCP - General Family Medicine 10/17/17 documented as of this encounter
--- OUTSIDE RECORDS SUMMARY | 2024-04-26 03:00 | XMS_ITS | Encounter Summary ---
Author Organization [facility] Address [address] [place] [address] Phone Care Team Providers Care Processing Technologist Name Role Phone Justen Gale MD Primary Care Provider [phone] Reason for Visit * Reason Onset Date Comments Bloody Nose 2020 Encounter Details Date Type Department Care Team (Late st Contact Info) Description 2020 Nurse Triage [facility] [address] [place] [address] Justen Gale MD #[address] [address] Bloody Nose Social History Tobacco Use Types Packs/Day Years [...] have Coronavirus / COVID-19? No / Unsure 2020 11:37 AM RADIOLOGY INTERVENTIONAL PHYSICIAN documented as of this encounter Miscellaneous Notes * Telephone Encounter - Elma Sykes RN - 2020 4:13 PM CST Office visit appointment scheduled OLOGY INTERVENTIONAL PHYSICIAN * Telephone Encounter - Justen Gale MD - 2020 11:54 AM CST yes OLOGY INTERVENTIONAL PHYSICIAN * Telephone Encounter - Amanda Nielsen RN - 2020 11:36 AM CST SITUATION: Nose bleed BACKGROUND: Patient vomited this morning and had a lot of blood come out of her nose. Patient vomits occasionally with gastroparesis Patient takes xarelto with medication for breast cancer that has possibley caused blood clots in the past HISTORY: Gastroparesis, type 2 diabetes, hypertensive disorder ASSESSMENT: Onset / Duration: today Symptom Description / Location: Patient vomited one time this morning and had blood come out of hernose. Patient had some blood in the toilet and all over her hand when she touched her face. Patientstates that nosebleed stopped about 10 minutes after vomiting. Patient states that she had a lot ofblood coming out of both nostrils. Patient can tasted blood in her mouth, but has not washed mouth o ut yet. Pain (0-10): patient denies Temp: patient denies Other Symptoms: patient denies Treatment / Response: put pressure on nose and bleeding stopped Last Appointment: 02/17/20 RECOMMENDATION: See care advice and disposition for Guideline. First positive answer recorded, all responses to prior questions were negative. If symptoms increase, change or if new symptoms develop, call your HCP or call back. Recommendations were based on caller information and is not a diagnosis. Verified and reviewed all triage information with caller. Teach-back method utilized. Does patient need to be seen in office? Reason for Disposition ??? Taking Coumadin (warfarin) or other strong blood thinner, or known bleeding disorder (e.g., thrombocytopenia) Protocols used: [id number] OLOGY INTERVENTIONAL PHYSICIAN documented in this encounter Plan of Treatment Upcoming Encounters Date Type Department Care Team (Late st Contact Info) Description 05/17/2024 2:45 PM RADIOLOGY INTERVENTIONAL PHYSICIAN [facility] Visit [facility] - Endocrinology [facility] #2 [place] [address] Annel Rod MD #2 [facility] [address] [place] [address] documented as of this encounter Visit Diagnoses Not on filedocumented in this encounter Additional Health Concerns Assessment Noted Time PHQ-9 Depression Total Score: 0 09/08/19 19 1:00 PM CDT documented as of this encounter Care Teams Processing Technologist Relationship Specialty Start Date End Date Justen Gale MD #2 [facility] [address] [place] [address] PCP - General Family Medicine 10/17/17 documented as of this encounter
--- OUTSIDE RECORDS SUMMARY | 2024-04-26 03:00 | XMS_ITS | Encounter Summary ---
Author Organization [facility] Address [address] [place] [address] Phone Care Team Providers Care Manager Crisis Name Role Phone Justen Gale MD Primary Care Provider [phone] Reason for Visit * Reason Onset Date Comments Follow-up 09/28/2020 Encounter Details Date Type Department Care Team (Late st Contact Info) Description 09/28/2020 Telephone [facility] [address] [place] [address] Justen Gale MD #[address] [address] Follow-up Social History Tobacco Use Types Packs/Day [...] Telephone Encounter - Elma Sykes RN - 09/28/2020 2:14 PM CDT LMOM, please give provider's message * Telephone Encounter - Angelito Alegria APN, CNP - 09/28/2020 1:59 PM CDT No immediate recommendations. Will plan to see her tomorrow. * Telephone Encounter - Delia Myo RN - 09/28/2020 1:39 PM CDT (PRD Verified) calling with patient on speaker as well, states patient is no better than when she went to the ER. She has a follow up on: All Patient Appointments Provider Department Dept Phone 09/29/2020 3:30 PM Angelito Alegria [facility] - Family Medicine - [place] [phone] She is not sure if she wants to wait until then or go to prompt care. ER can't find anything wrong with abdomen. States she is barely urinating, gets so sick she can't breathe at times, can barely eat anything, stomach gets really bloated, feels dehydrated, barely drinking water, eating anything, really nauseous. Sometimes gets hungry and tries to eat a bit, cade if she gets assisted through a meal without bloating and stomach getting really hard and painful, hard to breathe. States she is not any better at all. When she feels like she has to have a BM she gets so sick she can barely hold herhead up. Afterward feels a little better. Unsure if patient has been informed of CT abdomen/pelvis, she says they told her everything is normal. Findings on report state mild colonic diverticulosis. States she was supposed to be referred to a few specialists by the ER but they never placed referrals. Will come to appointment tomorrow, if worsening symptoms will call back or go to ER. Asking if you have any immediate recommendations? documented in this encounter Plan of Treatment Upcoming Encounters Date Type Department Care Team (Late st Contact Info) Description 05/17/2024 2:45 PM HOT TAR ROOFER Office Visit [facility] - Endocrinology [facility] #2 [place] [address] Annel Rod MD #2 [facility] [address] [place] [address] documented as of this encounter Visit Diagnoses Not on filedocumented in this encounter Additional Health Concerns Assessment Noted Time PHQ-9 Depression Total Score: 0 07/21/19 21 3:00 PM CDT documented as of this encounter Care Teams Manager Crisis Relationship Specialty Start Date End Date Justen Gale MD #2 [facility] [address] [place] [address] PCP - General Family Medicine 10/17/17 documented as of this encounter
--- OUTSIDE RECORDS SUMMARY | 2024-04-26 03:00 | XMS_ITS | Encounter Summary ---
Author Organization [facility] [employer] Care Team Providers Care Sales And Service Representative Name Role Phone Justen Gale MD Primary Care Provider [phone] Encounter Details Date Type Department Care Team (Latest Contact Info) Description 06/29/2020 Travel Social History Tobacco Use Types Packs/Day [...] COVID-19? No / Unsure 06/29/2020 8:43 AM BALANCE AND HAIRSPRING ASSEMBLER documented as of this encounter Plan of Treatment Upcoming Encounters Date Type Department Care Team (Late st Contact Info) Description 05/17/2024 2:45 PM BALANCE AND HAIRSPRING ASSEMBLER Office Visit [facility] - Endocrinology - [place] [address] [place] [address] Annel Rod MD #[address] [address] documented as of this encounter Visit Diagnoses Not on filedocumented in this encounter Additional Health Concerns Assessment Noted Time PHQ-9 Depression Total Score: 0 09/08/19 19 1:00 PM CDT documented as of this encounter Care Teams Sales And Service Representative Relationship Specialty Start Date End Date Justen Gale MD #2 [place] [address] PCP - General Family Medicine 10/17/17 documented as of this encounter
--- OUTSIDE RECORDS SUMMARY | 2024-04-26 03:00 | XMS_ITS | Encounter Summary ---
Author Organization [facility] [employer] Care Team Providers Care Hand Sizer Name Role Phone Justen Gale MD Primary Care Provider [phone] Encounter Details Date Type Department Care Team (Latest Contact Info) Description 09/07/2020 Travel Social History Tobacco Use Types Packs/Day [...] or suspected to have Coronavirus / COVID-19? Unable to assess 09/07/2020 10:30 AM CDT documented as of this encounter Plan of Treatment Upcoming Encounters Date Type Department Care Team (Late st Contact Info) Description 05/17/2024 2:45 PM DIRECTOR CENTER Office Visit [facility] - Endocrinology - [place] [address] [place] [address] Annel Rod MD #[address] [address] documented as of this encounter Visit Diagnoses Not on filedocumented in this encounter Additional Health Concerns Assessment Noted Time PHQ-9 Depression Total Score: 0 07/21/19 21 3:00 PM CDT documented as of this encounter Care Teams Hand Sizer Relationship Specialty Start Date End Date Justen Gale MD #[address] [address] PCP - General Family Medicine 10/17/17 documented as of this encounter
--- OUTSIDE RECORDS SUMMARY | 2024-04-26 03:00 | XMS_ITS | Encounter Summary ---
Author Organization [facility] Address [address] [place] [address] Phone Care Team Providers Care Featheredge Machine Operator Name Role Phone Justen Gale MD Primary Care Provider [phone] Reason for Visit * Reason Onset Date Comments Back Pain 07/09/2020 Encounter Details Date Type Department Care Team (Late st Contact Info) Description 07/09/2020 Nurse Triage [facility] [address] [place] [address] Justen Gale MD #[address] [address] Back Pain Social History Tobacco Use Types [...] COVID-19? No / Unsure 06/29/2020 8:43 AM SOURCING INTERN documented as of this encounter Miscellaneous Notes * Telephone Encounter - Johanna Almonte RN - 07/09/2020 8:40 PM CDT SITUATION (caller perception/concerns): Back pain, jaw swelling BACKGROUND (events leading up to call): Caller reports severe back pain for 3 days and can barely walk or stand, also has had swelling to her right jaw for 2 weeks and it is tender to touch. States she had the Covid vaccine 2 weeks ago History: HTN, DM type 2, palpitations, DVT,PE, neck pain, breast cancer,spinal stenosis, see snapshot ASSESSMENT: Onset: 3 days for back pain, 2 weeks for jaw swelling Symptoms: Back pain for past 3 days,constant and severe and worse tonight; can barely stand or walk, is crying in pain during this call; also reports jaw swelling in front of right ear and jaw is tender to touch for past 2 weeks Pain: Present now: yes Length of time present: 3 days Constant or intermittent: constant Description of pain: Sore/feels like I got beat up really bad Level of pain/location: Severe/back Ability to perform daily activities: Can barely walk or stand for past 3 days Temp (route, time): Denies fever RECOMMENDATION: Will go to the ED now See care advice and disposition for guideline. [...] method utilized. Reason for Disposition ? ? [1] SEVERE back pain (e.g., excruciating) AND [2] sudden onset AND [3] age > 60 Protocols used: BACK PAIN-A-AH documented in this encounter Plan of Treatment Upcoming Encounters Date Type Department Care Team (Late st Contact Info) Description 05/17/2024 2:45 PM SOURCING INTERN Office Visit [facility] - Endocrinology - [place] #[address] [place] [address] Annel Rod MD #2 [place] [facility] [address] [place] [address] documented as of this encounter Visit Diagnoses Not on filedocumented in this encounter Additional Health Concerns Assessment Noted Time PHQ-9 Depression Total Score: 0 09/08/19 19 1:00 PM CDT documented as of this encounter Care Teams Featheredge Machine Operator Relationship Specialty Start Date End Date Justen Gale MD #2 [place] [facility] [address] [place] [address] PCP - General Family Medicine 10/17/17 documented as of this encounter
--- OUTSIDE RECORDS SUMMARY | 2024-04-26 03:00 | XMS_ITS | Encounter Summary ---
Author Organization [facility] Address [address] [place] [address] Phone Care Team Providers Care Sample Worker Name Role Phone Justen Gale MD Primary Care Provider [phone] Reason for Referral * Consult, Test & Initiate Treatment (Routine) - Closed Specialty Diagnoses / Procedures Referred By Contkristina t Referred To Contact Diagnoses Lower abdominal pain Justen Gale MD #[address] [address] Phone: tel: fax: Provider, Not On File [place] Referral ID Status Reason Start Date Expiration Date Visits Re quested Visits Authorized [id number] Closed 09/09/2020 1 1 Scheduling Instructions Karly is being referred to dr. Jayor sharma or other specialist in patient's insurance network for abdominal pain/mesh placement in past . See below for Karly's current medications, [...] III SHORT PEN) 31G X 8 MM [facility], USE SIX TIMES DAILY DIRECTED, Disp: 100 Pen Needle, Rfl: 11 Lantus SoloStar 100 UNIT/ML Solution Pen-injector, INJECT 50 UNITS SUBCUTANEOUSLY EVERY MORNING, Disp: 45 mL, Rfl: 1 lisinopril (PRINIVIL, ZESTRIL) 20 MG Tablet, Take 1 Tablet by mouth daily., Disp: 90 Tablet, Rfl: 1 Mirabegron ER 25 MG TABLET SR 24 HR, Take 25 mg by mouth., Disp: , Rfl: Misc. Devices [facility], Supply and instructions:, Disp: 1 Each, Rfl: [...] 59.9 in adult (HCC) Thyroid nodule * Consult, Test & Initiate Treatment (Routine) - Closed Specialty Diagnoses / Procedures Referred By Elyssa t Referred To Contact Diagnoses Urinary incontinence, unspecified type Justen Gale MD #[address] [address] Phone: tel: fax: [facility] [address] [place] [address] 11[address] [place] [address] [place] [address] Phone: tel: fax: Referral ID Status Reason Start Date Expiration Date Visits Re quested Visits Authorized [id number] Closed 09/09/2020 1 1 Scheduling Instructions Karly is being referred to [facility] or other specialist in patient's insurance network for urinary incontinence. Possible bladder spams. . See below for Karly's current medications, [...] III SHORT PEN) 31G X 8 MM [facility], USE SIX TIMES DAILY DIRECTED, Disp: 100 Pen Needle, Rfl: 11 Lantus SoloStar 100 UNIT/ML Solution Pen-injector, INJECT 50 UNITS SUBCUTANEOUSLY EVERY MORNING, Disp: 45 mL, Rfl: 1 lisinopril (PRINIVIL, ZESTRIL) 20 MG Tablet, Take 1 Tablet by mouth daily., Disp: 90 Tablet, Rfl: 1 Mirabegron ER 25 MG TABLET SR 24 HR, Take 25 mg by mouth., Disp: , Rfl: Misc. Devices [facility], Supply and instructions:, Disp: 1 Each, Rfl: 0 ondansetron (ZOFRAN) 4 MG Tablet, TAKE 1 TABLET BY MOUTH EVERY 8 HOURS NEEDED FOR NAUSEA, Disp: 15 Tab, Rfl: 9 ondansetron (ZOFRAN-ODT) 4 MG TABLET DISPERSIBLE, Take 4 mg by mouth., Disp: , Rfl: ONETOUCH DELICA LANCETS 33G Mis, 1 Lancet [...] polyneuropathy, with long-term current use of insulin ([facility]) Acute deep vein thrombosis (DVT) of [...] nodule Reason for Visit * Reason Comments Post-Hospital Follow-up Encounter Details Date Type Department Care Team (Late st Contact Info) Description 09/09/2020 8:45 AM CDT Office Visit [facility] - Family [facility] [address] [place] [address] Justen Gale MD #[address] [address] Urinary incontinence, unspecified type (Primary Dx); Lower abdominal pain; LUL (obstructive sleep apnea) Discharge Disposition: Discharged to home or Selfcare [...] Sign Reading Time Taken Comments Blood Pressure 124/78 09/09/2020 8:50 AM CDT Pulse 69 09/09/2020 8:50 AM CDT Temperature 36.6 ??C (97.9 ??F) 09/09/2020 8:50 AM CD T Respiratory Rate 18 09/09/2020 8:50 AM CDT Oxygen Saturation 96% 09/09/2020 8:50 AM CDT Inhaled Oxygen Concentration - - Weight 134.9 kg (297 lb 8 oz) 09/09/2020 8:50 AM CDT Height 154.9 cm (5' 1 ) 09/09/2020 8:50 AM CDT Body Mass Index 56.21 09/09/2020 8:50 AM CDT documented in this encounter Progress Notes * Liz Rocha MA - 09/09/2020 8:45 AM CDT Karly Marques, 65 y.o., female is here for Post-Hospital Follow-up [...] 4 times aday 11/21/17 Justen Gale MD exemestane (AROMASIN) 25 MG Tablet Take 25 mg by mouth daily. Yes Tyler Smith MD famotidine (PEPCID) 20 MG Tablet Take 1 Tab by mouth 2 times daily. Patient not taking: Reported on 06/05/2020 02/17/20 Pili Elkins APN, SOFTWARE RELEASE MANAGER Glucose Blood (ONE TOUCH ULTRA TEST) Strip [...] Misc USE SIX TIMES DAILY DIRECTED 02/07/20 Justen Gale MD Lantus SoloStar 100 UNIT/ML Solution Pen-injector INJECT 50 UNITS SUBCUTANEOUSLY EVERY MORNING 08/06/20 Yes Justen Gale MD lisinopril (PRINIVIL, ZESTRIL) 20 MG Tablet Take 1 Tablet by mouth daily. 07/13/20 Yes Justen Gale MD Mirabegron ER 25 MG TABLET SR 24 HR Take 25 mg by mouth. 09/07/20 Yes Tyler Smith MD [facility]. Devices [facility] Supply and instructions: 02/25/19 Justen Gale MD ondansetron (ZOFRAN) 4 MG Tablet TAKE 1 TABLET BY MOUTH EVERY 8 HOURS NEEDED FOR NAUSEA 08/07/19 Yes Justen Gale MD ondansetron (ZOFRAN-ODT) 4 MG TABLET DISPERSIBLE Take 4 mg by mouth. 06/25/20 Yes Tyler Smith MD ONETOUCH DELICA LANCETS 33G Misc 1 Lancet by Does not apply route 4 times daily. 01/19/18 Annel Rod MD oxybutynin (DITROPAN) 5 MG [...] (1 of 2) Never done Orders Pended: no The following BPA's have been addressed with the patient today: No BPAs at this time * Justen Gale MD - 09/09/2020 8:45 AM CDT SUBJECTIVE: Karly Marques is here to follow-up/ evaluation on her No diagnosis found. Karly Marques says she has been feeling [...] and denies medication side effects. Went to [facility]. Discharge and then went to [facility] Admitted overnight to [place]. Sent home. [place] sick still. [facility] to [facility] 09/05/2020 Discharged 09/07/2020. Went in due to abd pain. N/v. Pain and pressure lower stomach. Hard to control urine per patient. Had dysuria and frequent urination Ct abd wnl. Pain much better today Dx: Possible baldder spams--told to see urology. Outpatient Medications Marked as Taking for the 09/09/20 encounter (Office Visit) with Justen Gale MD Medication Sig Dispense Refill ??? amitriptyline (ELAVIL) 25 MG Tablet ??? exemestane (AROMASIN) 25 MG Tablet Take 25 mg by mouth daily. ??? HYDROcodone-acetaminophen (NORCO) 7.5-325 MG Tablet TK 1 T PO QID PRN. DO NOT FILL UNTIL 02/13/2019 0 ??? Insulin Lispro, 1 Unit Dial, 100 UNIT/ML Solution Pen-injector INJECT 22 UNITS THREE TIMES DAILY BEFORE EACH MEAL. MAX OF 120 UNITS PER DAY 45 mL 1 ??? Lantus SoloStar 100 UNIT/ML Solution Pen-injector INJECT 50 UNITS SUBCUTANEOUSLY EVERY MORNING 45 mL 1 ??? lisinopril (PRINIVIL, ZESTRIL) 20 MG Tablet Take 1 Tablet by mouth daily. 90 Tablet 1 ??? Mirabegron ER 25 MG TABLET SR 24 HR Take 25 mg by mouth. ??? ondansetron (ZOFRAN) 4 MG Tablet TAKE 1 TABLET BY MOUTH EVERY 8 HOURS NEEDED FOR NAUSEA 15 Tab 9 ??? ondansetron (ZOFRAN-ODT) 4 MG TABLET DISPERSIBLE Take 4 mg by mouth. ??? oxybutynin (DITROPAN) 5 MG Tablet TAKE 1 TABLET BY MOUTH TWICE DAILY 180 Tab 2 ??? Polyethylene Glycol 3350 (MIRALAX PO) Take by mouth. ??? rivaroxaban (XARELTO) 20 MG Tablet Take 20 mg by mouth daily. ??? rOPINIROLE (REQUIP) 5 MG Tablet TAKE 1 TABLET BY MOUTH EVERY NIGHT 90 Tab 3 ??? tiZANidine (ZANAFLEX) 2 MG Capsule Take 1 Tablet by mouth. Allergies Allergen Reactions ??? Ceftriaxone Anaphylaxis ??? [...] LDL 101 01/24/2018 LDL 110 11/02/2017 INR 1.0 01/09/2020 HGBA1C 6.9 01/18/2020 HGBA1C 8.1 (H) 04/26/2019 HGBA1C 7.9 01/23/2018 ESR 56 (H) 12/03/2017 Lab Results Component [...] 3.960 07/26/2019 OBJECTIVE Well-nourished, well-developed, pleasant, cooperative 65 y.o. female in no acute distress. Vitals: 09/09/20 0850 BP: 124/78 BP Location: Left Arm BP Position: Sitting BP Cuff Size: Large Pulse: 69 Resp: 18 Temp: 97.9 ??F (36.6 ??C) TempSrc: Temporal SpO2: 96% Weight: 297 lb 8 oz (134.9 kg) Height: 5' 1 (1.549 m) Body mass index is 56.21 kg/m??. BP Readings from Last 3 Encounters: 09/09/20 124/78 07/20/20 128/76 06/05/20 136/88 Wt Readings from Last 3 Encounters: 09/09/20 297 lb 8 oz (134.9 kg) 07/20/20 300 lb (136.1 kg) 06/05/20 299 lb 9.6 oz (135.9 kg) SKIN: Warm and dry. EYES: . Sclerae are clear. NECK: Supple. No thyromegaly or adenopathy, no bruits. BACK: No spine or costovertebral angle tenderness. LUNGS: Clear to auscultation and percussion. HEART:normal rate, regular rhythm, normal S1, S2, no murmurs, rubs, clicks or gallops. ABDOMEN: Bowelsounds are active. No masses. No organomegaly, no tenderness. No bruits. EXTREMITIES: No edema. Mask glassses ASSESSMENT AND PLAN There are no diagnoses linked to this encounter. There are no discontinued medications. No follow-ups on file. Continue current medication After visit summary discussed with patient. Documentation for this visit on 09/09/2020 was completed using a template. I have seen and examined the patient. Everything documented was personally performed at this visit with the necessary additions, deletions and changes made as appropriate. Urinary incont: On myrbetriq. Send to urology Hx mesh placement for hernia repair. Send back to dr. King. documented in this encounter Plan of Treatment Upcoming Encounters Date Type Department Care Team (Late st Contact Info) Description 05/17/2024 2:45 PM MARINE OPERATIONS COORDINATOR Office Visit [facility] #2 [place] [address] Annel Rod MD #[address] [address] Scheduled Referrals Name Type Priority Associated Diagnoses Orde r Schedule EXTERNAL UROLOGY REFERRAL Outpatient Referral Routine Urinary incontinence, unspecified type Expected: 09/09/2020, Expires: 09/09/2021 EXTERNAL GEN SURGICAL REFERRAL Outpatient Referral Routine Lower abdominal pain Expected: 09/09/2020, Expires: 09/09/2021 documented as of this encounter Visit Diagnoses Diagnosis Urinary incontinence, unspecified type- Primary Lower abdominal pain Abdominal pain, other specified site LUL (obstructive sleep apnea) Obstructive sleep apnea (adult) (pediatric) documented in this encounter Additional Health Concerns Assessment Noted Time PHQ-9 Depression Total Score: 0 07/21/19 21 3:00 PM CDT documented as of this encounter Care Teams Sample Worker Relationship Specialty Start Date End Date Justen Gale MD #2 [facility] [address] [place] [address] PCP - General Family Medicine 10/17/17 documented as of this encounter
--- OUTSIDE RECORDS SUMMARY | 2024-04-26 03:00 | XMS_ITS | Encounter Summary ---
Author Organization [facility] [employer] Care Team Providers Care Material Requisitioner Name Role Phone Justen Gale MD Primary Care Provider [phone] Encounter Details Date Type Department Care Team (Latest Contact Info) Description 2020 Travel Social History Tobacco Use Types Packs/Day [...] COVID-19? No / Unsure 2020 11:37 AM TABLET MAKING MACHINE OPERATOR HELPER documented as of this encounter Plan of Treatment Upcoming Encounters Date Type Department Care Team (Late st Contact Info) Description 05/17/2024 2:45 PM TABLET MAKING MACHINE OPERATOR HELPER Office Visit [facility] - [facility] - [place] [address] [place] [address] Annel Rod MD #[address] [address] documented as of this encounter Visit Diagnoses Not on filedocumented in this encounter Additional Health Concerns Assessment Noted Time PHQ-9 Depression Total Score: 0 09/08/19 19 1:00 PM CDT documented as of this encounter Care Teams Material Requisitioner Relationship Specialty Start Date End Date Justen Gale MD #2 [place] [address] PCP - General Family Medicine 10/17/17 documented as of this encounter
--- OUTSIDE RECORDS SUMMARY | 2024-04-26 03:00 | XMS_ITS | Encounter Summary ---
Author Organization [facility] Care Team Providers Care Club Steward Name Role Phone Justen Gale MD Primary Care Provider [phone] Encounter Details Date Type Department Care Team (Latest Contact Info) Description 09/28/2020 Travel Social History Tobacco Use Types Packs/Day [...] st Contact Info) Description 05/17/2024 2:45 PM RAND TACKER Office Visit [facility] - [place] [address] [place] [address] Annel Rod MD [address] [address] documented as of this encounter Visit Diagnoses Not on filedocumented in this encounter Additional Health Concerns Assessment Noted Time PHQ-9 Depression Total Score: 0 07/21/19 21 3:00 PM CDT documented as of this encounter Care Teams Club Steward Relationship Specialty Start Date End Date Justen Gale MD #2 [place] [id number] PCP - General Family Medicine 10/17/17 documented as of this encounter
--- OUTSIDE RECORDS SUMMARY | 2024-04-26 03:00 | XMS_ITS | Encounter Summary ---
Author Organization [facility] Address [address] [place] [address] Phone Care Team Providers Care Pca Name Role Phone Justen Gale MD Primary Care Provider [phone] Reason for Visit * Reason Onset Date Comments Rash 09/11/2020 Encounter Details Date Type Department Care Team (Late st Contact Info) Description 09/11/2020 Nurse Triage [facility] [address] [place] [address] Justen Gale MD #[address] [address] Rash Social History Tobacco Use Types Packs/Day Years [...] encounter Miscellaneous Notes * Telephone Encounter - Lila Douglas RN - 09/11/2020 3:04 PM CDT Patient calling. States was in the hospital 4-5 days ago for lower abdominal pain/frequent urination/vomiting. States saw PCP for a follow-up. PCP wants to send her to a lodge sales associate/oncologist. SITUATION: Rash BACKGROUND: Onset today (09/11) Unsure of exact time Just noticed it a few minutes ago when she walked into her room ASSESSMENT: Symptom Description / Location: Chest appears red The left side of her chest from her collarbone to midway to her arm neck appears puffy Purple rash on top of the redness - appears as broken blood vessels in patches States that some of it appears to be single purple dots and purple dots grouped together Denies tenderness to palpation Has been feeling awful Pain (0-10): denies Temp: does not have a thermometer - denies feeling warm Treatment / Response: nothing RECOMMENDATION: See care advice and disposition for Guideline Patient advised to go to an urgent care center today for evaluation. Verbalized understanding and is going to leave now. Will call with further concerns. First positive answer recorded, all responses to prior questions were negative. If symptoms increase, change or if new symptoms develop, call your HCP or call back. Recommendations were based on caller information and is not a diagnosis. Verified and reviewed all triage information with caller. Reason for Disposition ??? Localized purple or blood-colored spots or dots that are not from injury or friction (no fever) Protocols used: RASH OR REDNESS - [id number] documented in this encounter Plan of Treatment Upcoming Encounters Date Type Department Care Team (Late st Contact Info) Description 05/17/2024 2:45 PM BOTTOM POLISHER Office Visit [facility] - Endocrinology - [place] #2 [place] [phone] Annel Rod MD [address] [phone] documented as of this encounter Visit Diagnoses Not on filedocumented in this encounter Additional Health Concerns Assessment Noted Time PHQ-9 Depression Total Score: 0 07/21/19 21 3:00 PM CDT documented as of this encounter Care Teams Pca Relationship Specialty Start Date End Date Justen Gale MD #[address] [address] PCP - General Family Medicine 10/17/17 documented as of this encounter
--- OUTSIDE RECORDS SUMMARY | 2024-04-26 03:00 | XMS_ITS | Encounter Summary ---
Author Organization [facility] [employer] Care Team Providers Care Automatic Blocker Name Role Phone Justen Gale MD Primary Care Provider [phone] Encounter Details Date Type Department Care Team [...] Coronavirus / COVID-19? No / Unsure 06/25/2020 1:09 PM MANAGER ELECTRONIC documented as of this encounter Plan of Treatment Upcoming Encounters Date Type Department Care Team (Late st Contact Info) Description 05/17/2024 2:45 PM MANAGER ELECTRONIC Office Visit [facility] - [place] [address] [place] [address] Annel Rod MD #[address] [address] documented as of this encounter Visit Diagnoses Not on filedocumented in this encounter Additional Health Concerns Assessment Noted Time PHQ-9 Depression Total Score: 0 09/08/19 19 1:00 PM CDT documented as of this encounter Care Teams Automatic Blocker Relationship Specialty Start Date End Date Justen Gale MD #2 [place] [address] PCP - General Family Medicine 10/17/17 documented as of this encounter
--- OUTSIDE RECORDS SUMMARY | 2024-04-26 03:00 | XMS_ITS | Encounter Summary ---
Author Organization [facility] Address [address] [place] [address] Phone Care Team Providers Care Edge Plugger Name Role Phone Justen Gale MD Primary Care Provider [phone] Reason for Referral * Consult, Test & Initiate Treatment (Routine) - Closed Specialty Diagnoses / Procedures Referred By Contac t Referred To Contact Diagnoses Malignant neoplasm of upper-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, unspecified estrogen receptor status (HCC) Justen Gale MD #[address] [address] Phone: tel: fax: [facility] [address] [place] [address] Phone: tel: fax: Referral ID Status Reason Start Date Expiration Date Visits Re quested Visits Authorized [id number] Closed 09/01/2020 1 11 Scheduling Instructions Karly is being referred to Dr. Franco Fam or other specialist in patient's insurance network for provider covered by her insurance for DX: D72.829, CPT: 83547. See below for Karly's current medications, allergies [...] receptor status (HCC) Justen Gale MD #[address] [address] Phone: tel: fax: Khris Arthur [address] [place] [address] Phone: tel: fax: Referral ID Status Reason Start Date Expiration Date Visits Re quested Visits Authorized [id number] Closed 09/01/2020 1 11 Scheduling Instructions Karly is being referred to Dr. Khris Arthur or other specialist in patient's insurance network for provider covered by her insurance for DX: D72.829, CPT: 31928. See below for Karly's current medications, allergies [...] Disp: 90 Tablet, Rfl: 1 Misc. Devices [facility], Supply and instructions:, Disp: 1 Each, Rfl: [...] By Elyssa t Referred To Contact Diagnoses Malignant neoplasm of upper-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, unspecified estrogen receptor status (HCC) Justen Gale MD #2 [place] [address] Phone: tel: fax: Heaven Carrillo MD Phone: tel: fax: Referral ID Status Reason Start Date Expiration Date Visits Re quested Visits Authorized [id number] Closed 09/01/2020 1 11 Scheduling Instructions Karly is being referred to Dr. Heaven Carrillo or other specialist in patient's insurance network for provider covered by her insurance for DX: D72.829, CPT: 39970. See below for Karly's current medications, allergies [...] (BMI) of 50.0 to 59.9 in adult ([facility]) Thyroid nodule Reason for Visit * Reason Onset Date Comments Referral 09/01/2020 Encounter Details Date Type Department Care Team (Late st Contact Info) Description 09/01/2020 Telephone [facility] [address] [place] [address] Justen Gale MD #[address] [address] Referral Social History Tobacco Use Types Packs/Day [...] encounter Miscellaneous Notes * Telephone Encounter - Sara Muñoz RN - 09/01/2020 2:14 PM CDT Received call that patient is needing insurance authorizations for the following doctor appointments. She says that with this insurance, doctor has to be listed on the referral. She says that if you have any questions, please call her back directly. Heaven Carrillo, oncology: September 04 [facility] Blinder: Hematology: September 04 [facility] Medicare Replacement: , Attn Dx Code: D72.829 for both of the CPT: 28402 consult, evaluation & treat. Tax ID: [id number] Address: [address] [place] [address]. [place], [place]. Dr. Khris Arthur, Oncology: September 15: All referrals have been pended for your review/approval. documented in this encounter Plan of Treatment Upcoming Encounters Date Type Department Care Team (Late st Contact Info) Description 05/17/2024 2:45 PM COLLEGE ADVISOR Office Visit [facility] - [facility]ology - [place] #2 [place] [phone] Annel Rod MD #[address] [address] Scheduled Referrals Name Type Priority Associated Diagnoses Orde r Schedule EXTERNAL MEDICAL ONCOLOGY REFERRAL Outpatient Referral Routine Malignant neoplasm of upper-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, unspecified estrogen receptor status (HCC) Expected: 09/02/2020, Expires: 09/01/2021 EXTERNAL MEDICAL ONCOLOGY REFERRAL Outpatient Referral Routine Malignant neoplasm of upper-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, unspecified estrogen receptor status (HCC) Expected: 09/02/2020, Expires: 09/01/2021 documented as of this encounter Results * EXTERNAL HEMATOLOGY ONCOLOGY REFERRAL (10/29/2020) Justen Gale MD OUTPT REFERRALS EXT/INT Final Result documented in this encounter Visit Diagnoses Diagnosis Malignant neoplasm of upper-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, unspecified estrogen receptor status (HCC)- Primary documented in this encounter Additional Health Concerns Assessment Noted Time PHQ-9 Depression Total Score: 0 07/21/19 21 3:00 PM CDT documented as of this encounter Care Teams Edge Plugger Relationship Specialty Start Date End Date Justen Gale MD #2 [place] [id number] PCP - General Family Medicine 10/17/17 documented as of this encounter
--- OUTSIDE RECORDS SUMMARY | 2024-04-26 03:00 | XMS_ITS | Encounter Summary ---
Author Organization [facility] Address [address] [place] [address] Phone Care Team Providers Care Box Icer Name Role Phone Justen Gale MD Primary Care Provider [phone] Reason for Referral * Consult, Test & Initiate Treatment (Routine) - Closed Specialty Diagnoses / Procedures Referred By Contac t Referred To Contact Diagnoses Malignant neoplasm of overlapping sites of left female breast, unspecified estrogen receptor status (HCC) Justen Gale MD #[address] [address] Phone: tel: fax: Referral ID Status Reason Start Date Expiration Date Visits Re quested Visits Authorized [id number] Closed 07/23/2020 1 24 Scheduling Instructions Karly is being referred to [facility] or other specialist in patient's insurance network for Breast cancer. ICD10 C50.812. See below for Karly's current medications, allergies [...] Disp: 90 Tablet, Rfl: 1 Misc. Devices [facility], Supply and instructions:, Disp: [...] Visit * Reason Onset Date Comments Referral 07/23/2020 Encounter Details Date Type Department Care Team (Late st Contact Info) Description 07/23/2020 Telephone [facility] [address] [place] [address] Justen Gale MD #[address] [address] Referral Social History Tobacco Use Types Packs/Day [...] encounter Miscellaneous Notes * Telephone Encounter - Maira Bello RN - 07/23/2020 1:33 PM CDT Patient calling about results and to see about referral. Information given. No additional questionsfor write. Will close encounter. * Telephone Encounter - Justen Gale MD - 07/23/2020 8:52 AM CDT done * Telephone Encounter - Christin Marcano RN - 07/23/2020 8:46 AM CDT Lina from [facility] in [facility] and is Looking for an oncology referral for the patient. Referral pended - please fax to [phone] documented in this encounter Plan of Treatment Upcoming Encounters Date Type Department Care Team (Late st Contact Info) Description 05/17/2024 2:45 PM HYDROGEN POWER PLANT MANAGER Office Visit [facility] - Endocrinology - [place] [address] [place] [address] Annel Rod MD [address] [place] [address] documented as of this encounter Results * EXTERNAL HEMATOLOGY ONCOLOGY REFERRAL (11/10/2020) Justen Gale MD OUTPT REFERRALS EXT/INT Final Result documented in this encounter Visit Diagnoses Diagnosis Malignant neoplasm of overlapping sites of left female breast, unspecified estrogen receptor status (HCC)- Primary documented in this encounter Additional Health Concerns Assessment Noted Time PHQ-9 Depression Total Score: 0 07/21/19 21 3:00 PM CDT documented as of this encounter Care Teams Box Icer Relationship Specialty Start Date End Date Justen Gale MD #[address] [facility] [place] [address] [place] [address] PCP - General Family Medicine 10/17/17 documented as of this encounter
--- OUTSIDE RECORDS SUMMARY | 2024-04-26 03:00 | XMS_ITS | Encounter Summary ---
Author Organization [facility] Address [address] [facility] [place] [place] [address] Phone Care Team Providers Care Psychology Physician Name Role Phone Justen Gale MD Primary Care Provider [phone] Reason for Visit * Reason Onset Date Comments Medication Management 05/19/2020 questions about macrobid Encounter Details Date Type Department Care Team (Late st Contact Info) Description 05/19/2020 Nurse Triage [facility] [address] [place] [address] Justen Gale MD #[address] [address] Medication Management (questions about macrobid) Social History Tobacco Use Types Packs/Day Years [...] encounter Miscellaneous Notes * Telephone Encounter - Kathleen Reddy RN - 05/20/2020 4:53 PM CST Call to pt: Voiced understanding and will stop taking macrobid and will pick up man and begin the cipro. NESS INTEGRATION ANALYST * Telephone Encounter - Gail Lucero RN - 05/20/2020 9:08 AM CST lmom NESS INTEGRATION ANALYST * Addendum Note - Justen Gale MD - 05/20/2020 8:12 AM CSTAddended by: JUSTEN GALE on: 05/20/2020 08:12 AM Modules accepted: Orders NESS INTEGRATION ANALYST * Telephone Encounter - Justen Gale MD - 05/20/2020 8:11 AM CST Please call. Stop macrobid. I will call in a different abx. If no better in next 1-2 days , call or make ov. Call sooner if gets worse. NESS INTEGRATION ANALYST * Telephone Encounter - Norma Peterson RN - 05/19/2020 8:45 PM BUSINESS INTEGRATION ANALYST SITUATION (caller perception/concerns): Lakesha morrows questions about medication she was put on today for UTI BACKGROUND (events leading up to call): I was seen in [facility] this morning and put of Macrobid.for 7 days. History: frequent urinary tract infections. ASSESSMENT: Onset: 2 hour sago Symptoms: Patient stated she was sick last night after a few days of not feeling well. Last night started having urinary tract symptoms - was diagnosed with urinary tract infection.I feel worse now. I have chills, feel feverish (no thermometer), weak and shaky, short of breath, Vomited once after dinner.an d having nausea.. RN reviewed EMR and these are common side effects to taking Macrobid. Denies difficulty breathing or swallowing, dribbling, unable to pass a full stream PAIN: denies at present Ability to perform daily activities: able Temp (route, time): denies (no thermometer) Other Symptoms: see above Treatment with response: RN advised oral rehydration. RECOMMENDATION: Home Care. See care advice and disposition for guideline. [...] Teach-back method utilized. Reason for Disposition ??? Caller has medication question only, adult not sick, and triager answers question Protocols used: MEDICATION QUESTION CALL-A-AH NESS INTEGRATION ANALYST documented in this encounter Plan of Treatment Upcoming Encounters Date Type Department Care Team (Late st Contact Info) Description 05/17/2024 2:45 PM BUSINESS INTEGRATION ANALYST [facility] - [facility] #2 [place] [address] Annel Rod MD #2 [facility] [address] [place] [address] documented as of this encounter Visit Diagnoses Not on filedocumented in this encounter Additional Health Concerns Assessment Noted Time PHQ-9 Depression Total Score: 0 09/08/19 19 1:00 PM CDT documented as of this encounter Care Teams Psychology Physician Relationship Specialty Start Date End Date Justen Gale MD #2 [facility] [address] [place] [address] PCP - General Family Medicine 10/17/17 documented as of this encounter
--- OUTSIDE RECORDS SUMMARY | 2024-04-26 03:00 | XMS_ITS | Encounter Summary ---
Author Organization [facility] Address [address] [place] [address] Phone Care Team Providers Care Insurance Office Supervisor Name Role Phone Justen Gale MD Primary Care Provider [phone] Encounter Details Date Type Department Care Team (Late st Contact Info) Description 07/21/2020 Telephone [facility] - Gastroenterology - [place] #2 [place] [address] Nessa Padgett, [facility] #[address] [place] [address] Social History Tobacco Use Types Packs/Day Years [...] encounter Miscellaneous Notes * Telephone Encounter - Arthur Li CMA - 07/21/2020 1:48 PM CDT 1st GI no show office visit 07/17/2020, letter mailed. documented in this encounter Plan of Treatment Upcoming Encounters Date Type Department Care Team (Late st Contact Info) Description 05/17/2024 2:45 PM WAITSTAFF CAPTAIN Office Visit [facility] - [place] [address] [place] [address] Annel Rod MD #2 [facility] [address] [place] [address] documented as of this encounter Visit Diagnoses Not on filedocumented in this encounter Additional Health Concerns Assessment Noted Time PHQ-9 Depression Total Score: 0 07/21/19 21 3:00 PM CDT documented as of this encounter Care Teams Insurance Office Supervisor Relationship Specialty Start Date End Date Justen Gale MD #2 [facility] [address] [place] [address] PCP - General Family Medicine 10/17/17 documented as of this encounter
--- OUTSIDE RECORDS SUMMARY | 2024-04-26 03:00 | XMS_ITS | Encounter Summary ---
Author Organization [facility] Address [address] [place] [address] Phone Care Team Providers Care Student Career Development Specialist Name Role Phone Justen Gale MD Primary Care Provider [phone] Encounter Details Date Type Department Care Team (Late st Contact Info) Description 09/14/2020 Telephone [facility] - [place] #2 [place] [address] Genaro Jensen, DO [address] [address] Social History Tobacco Use Types Packs/Day [...] Miscellaneous Notes * Telephone Encounter - Kiesha Rivera - 09/14/2020 10:13 AM CDT Pt called and left message, I returned call and left message documented in this encounter Plan of Treatment Upcoming Encounters Date Type Department Care Team (Late st Contact Info) Description 05/17/2024 2:45 PM HOSPITAL ADMINISTRATOR Office Visit [facility] - [facility]ology - [place] #[address] [place] [address] Annel Rod MD #[address] [address] documented as of this encounter Visit Diagnoses Not on filedocumented in this encounter Additional Health Concerns Assessment Noted Time PHQ-9 Depression Total Score: 0 07/21/19 21 3:00 PM CDT documented as of this encounter Care Teams Student Career Development Specialist Relationship Specialty Start Date End Date Justen Gale MD #[address] [address] PCP - General Family Medicine 10/17/17 documented as of this encounter
--- OUTSIDE RECORDS SUMMARY | 2024-04-26 03:00 | XMS_ITS | Encounter Summary ---
Author Organization [facility] Address [address] [place] [address] Phone Care Team Providers Care Chief Of Internal Medicine Name Role Phone Justen Gale MD Primary Care Provider [phone] Encounter Details Date Type Department Care Team (Late st Contact Info) Description 07/17/2020 Telephone [facility] - Gastroenterology - [place] #2 [place] [address] Nessa Padgett, [facility] #[address] [place] [address] Social History Tobacco Use Types Packs/Day Years [...] Telephone Encounter - Arthur Li CMA - 07/17/2020 12:34 PM CDT Patients Jimmie called and spoke to Leslie in Gen Surg and canceled patients 3:00 pm appointment, LMOM for patient to call office to r/s documented in this encounter Plan of Treatment Upcoming Encounters Date Type Department Care Team (Late st Contact Info) Description 05/17/2024 2:45 PM RECTIFICATION PRINTER Office Visit [facility] - Endocrinology - [place] #[address] [place] [address] Annel Rod MD #2 [facility] [address] [place] [address] documented as of this encounter Visit Diagnoses Not on filedocumented in this encounter Additional Health Concerns Assessment Noted Time PHQ-9 Depression Total Score: 0 09/08/19 19 1:00 PM CDT documented as of this encounter Care Teams Chief Of Internal Medicine Relationship Specialty Start Date End Date Justen Gale MD #2 [facility] [address] [place] [address] PCP - General Family Medicine 10/17/17 documented as of this encounter
--- OUTSIDE RECORDS SUMMARY | 2024-04-26 03:00 | XMS_ITS | Encounter Summary ---
Author Organization [facility] Address [address] [place] [address] Phone Care Team Providers Care Junior Systems Analyst Name Role Phone Justen Gale MD Primary Care Provider [phone] Reason for Visit * Reason Onset Date Comments Abdominal Pain 09/20/2020 Encounter Details Date Type Department Care Team (Late st Contact Info) Description 09/20/2020 Nurse Triage [facility] [address] [place] [address] Justen Gale MD #[address] [address] Abdominal Pain Social History Tobacco Use Types [...] encounter Miscellaneous Notes * Telephone Encounter - Jose Alejandro Roach RN - 09/20/2020 1:57 PM CDT SITUATION (caller perception/concerns): Abdominal pain and distention BACKGROUND (events leading up to call): Pending History of diabetes and gastroparesis. Unable to take Reglan due to severe restless legs symptoms . ASSESSMENT: States her stomach is very distended that she cannot breathe or it makes it harder to breathe. States 1 bite of cracker makes her nauseated and she cannot eat. States she is so nauseated that she cannot eat so she is not taking her insulin. Most recent blood sugar was 109 at fasting this morning. Zofran is not helping. Has not tried Glucerna shakes Patient states her abdomen is noticeably more distended as yesterday. Elastic pants are tighter today than yesterday. Last stool this morning and was small and hard. Yesterday stool was the same- small and hard. States her stool for the last couple of days has looked black. Takes metamucil but onlya couple of sips at a time. Drinking water without issue. Vomited last night when trying to eat solid food last night. Unable to lie down because of the distention causing inability to breathe. RECOMMENDATION: ED now, driving. See care advice and disposition for guideline. [...] Teach-back method utilized. Reason for Disposition ??? Black or tarry bowel movements (Exception: chronic-unchanged black-south bowel movements AND is taking iron pills or Pepto-bismol) Protocols used: ABDOMINAL PAIN - FEMALE-A-AH documented in this encounter Plan of Treatment Upcoming Encounters Date Type Department Care Team (Late st Contact Info) Description 05/17/2024 2:45 PM RUBBER AND PLASTICS WORKER Office Visit [facility] - Endocrinology - [place] [address] [place] [address] Annel Rod MD #2 [facility] [address] [place] [address] documented as of this encounter Visit Diagnoses Not on filedocumented in this encounter Additional Health Concerns Assessment Noted Time PHQ-9 Depression Total Score: 0 07/21/19 21 3:00 PM CDT documented as of this encounter Care Teams Junior Systems Analyst Relationship Specialty Start Date End Date Justen Gale MD #2 [facility] [address] [place] [address] PCP - General Family Medicine 10/17/17 documented as of this encounter
--- OUTSIDE RECORDS SUMMARY | 2024-04-26 03:00 | XMS_ITS | Encounter Summary ---
Author Organization [employer] Care Team Providers Care Brilliandeer Lopper Name Role Phone Justen Gale MD Primary Care Provider [phone] Encounter Details Date Type Department Care Team (Latest Contact Info) Description 09/09/2020 Travel Social History Tobacco Use Types Packs/Day [...] st Contact Info) Description 05/17/2024 2:45 PM GASOLINE FINISHER Office Visit [facility] - [facility] - [place] [address] [place] [address] Annel Rod MD [address] [address] documented as of this encounter Visit Diagnoses Not on filedocumented in this encounter Additional Health Concerns Assessment Noted Time PHQ-9 Depression Total Score: 0 07/21/19 21 3:00 PM CDT documented as of this encounter Care Teams Brilliandeer Lopper Relationship Specialty Start Date End Date Justen Gale MD #2 [place] [id number] PCP - General Family Medicine 10/17/17 documented as of this encounter
--- OUTSIDE RECORDS SUMMARY | 2024-04-26 03:00 | XMS_ITS | Encounter Summary ---
Author Organization [facility] Address [address] [place] [address] Phone Care Team Providers Care Glue Cook Name Role Phone Justen Gale MD Primary Care Provider [phone] Reason for Referral * Consult, Test & Initiate Treatment (Less Than 4 Weeks) - Closed Specialty Diagnoses / Procedures Referred By Contkristina t Referred To Contact Gastroenterology Diagnoses Gastroparesis Pili Elkins APRN, DISTRESSER [address] [address] Phone: tel: fax: [facility] - Gastroenterology [facility] [address] [place] [address] Phone: tel: fax: Referral ID Status Reason Start Date Expiration Date Visits Re quested Visits Authorized [id number] Closed 06/05/2020 1 12 Scheduling Instructions Karly is being referred for diagnosis, evaluation, treatment. Please contact patient for scheduling questions or [...] 0 lisinopril (PRINIVIL, ZESTRIL) 20 MG Tablet, TAKE 1 TABLET BY MOUTH DAILY, Disp: 90 Tab, Rfl: 2 Misc. Devices Misc, Supply and instructions:, Disp: 1 Each, Rfl: 0 ondansetron (ZOFRAN) 4 MG Tablet, TAKE 1 TABLET BY MOUTH EVERY 8 HOURS NEEDED FOR NAUSEA, Disp: 15 Tab, Rfl: 9 ONETOUCH DELICA LANCETS 33G Misc, 1 Lancet [...] to 59.9 in adult (HCC) Thyroid nodule R TECHNICIAN Reason for Visit * Reason Comments Bloody Nose Pt had a nosebleed d ue to vomiting on Monday. Patient feels like her UTI is not completely cleared up after antibiotics. When patient eats she gets real nauseaous, when she has BM she gets sick Urinary Frequency Abdominal Pain Encounter Details Date Type Department Care Team (Late st Contact Info) Description 06/05/2020 3:30 PM FIBER TECHNICIAN Office Visit [facility] - [facility] [address] [place] [address] Pili Elkins APRN, DISTRESSER [address] [address] Increased urinary frequency (Primary Dx); Gastroparesis; Mild epistaxis Discharge Disposition: Discharged to home or Selfcare [...] COVID-19? No / Unsure 2020 11:37 AM FIBER TECHNICIAN documented as of this encounter Last Filed Vital Signs Vital Sign Reading Time Taken Comments Blood Pressure 136/88 06/05/2020 3:42 PM FIBER TECHNICIAN Pulse 88 06/05/2020 3:42 PM FIBER TECHNICIAN Temperature 37 ??C (98.6 ??F) 06/05/2020 3:42 PM FIBER TECHNICIAN Respiratory Rate 16 06/05/2020 3:42 PM FIBER TECHNICIAN Oxygen Saturation 97% 06/05/2020 3:42 PM FIBER TECHNICIAN Inhaled Oxygen Concentration - - Weight 135.9 kg (299 lb 9.6 oz) 06/05/2020 3:42 PM FIBER TECHNICIAN Height 154.9 cm (5' 1 ) 06/05/2020 3:42 PM FIBER TECHNICIAN Body Mass Index 56.61 06/05/2020 3:42 PM FIBER TECHNICIAN documented in this encounter Patient Instructions * Patient Instructions* Candy Castellanos, RMA - 06/05/2020 3:30 PM FIBER TECHNICIAN Pneumonia is a serious lung infection that [...] Primary Care Physician???s office or your localpharmacy. R TECHNICIAN documented in this encounter Progress Notes * Candy Castellanos RMA - 06/05/2020 3:30 PM CST Karly Marques is a 65 y.o. female with current BMI: Body mass index is 56.61 kg/m??. Interventions discussed including: encourage daily physical activity and well- balanced diet. R TECHNICIAN * Candy Castellanos RMA - 06/05/2020 3:30 PM CST Karly Marques, 65 y.o., female is here for Bloody Nose (Pt had a nosebleed due to vomiting on Monday. Patient feels like her UTI is not completely cleared up after antibiotics. When patient eats she gets real nauseaous, when she has BM she gets sick), Urinary Frequency, and Abdominal Pain Medication Refills: Patient reports/denies need for [...] Take 25 mg by mouth daily. Yes ProviderTyler MD famotidine (PEPCID) 20 MG Tablet Take 1 Tab by mouth 2 times daily. Patient not taking: Reported on 06/05/2020 02/17/20 Pili Elkins APN, NETTA Glucose Blood (ONE TOUCH ULTRA TEST) Strip [...] Pen-injector INJECT 50 UNITS SUBCUTANEOUSLY EVERY MORNING 05/07/20 Yes Angelito Hunt MD lisinopril (PRINIVIL, ZESTRIL) 20 MG Tablet TAKE 1 TABLET BY MOUTH DAILY 09/30/19 Yes Justen Gale MD Misc. Devices Misc Supply and instructions: 02/25/19 Yes Justen Gale MD ondansetron (ZOFRAN) 4 MG Tablet TAKE 1 TABLET BY MOUTH EVERY 8 HOURS NEEDED FOR NAUSEA 08/07/19 Yes Justen Gale MD ONETOUCH DELICA LANCETS 33G Misc 1 [...] EVERY NIGHT 03/09/20 Yes Justen Gale MD There are no [...] Health Maintenance Due Topic Date Due ??? Dilated Eye Exam 1955 ??? Pneumococcal Immunization (0-64 years) (1 of 3 - PCV13) 1962 ??? SARS-COV-2 Immunization (1 of 2) 1972 ??? Pap Smear 1977 ??? Mammogram 2006 ??? Zoster Immunization (1 of 2) 2006 Orders Pended: no The following BPA's have been addressed with the patient today: BMI, Pneumonia, Mammogram, Pap and Depression R TECHNICIAN * Pili Elkins APN, DISTRESSER - 06/05/2020 3:30 PM CST [facility] [address] [facility] [address] Dept: [phone] Dept Loc: [phone] Loc Patient: Karly Marques : 1955 Sex: female Subjective Subjective: HPI: Karly Marques presents for Bloody Nose (Pt had a nosebleed due to vomiting on Monday. Patient feels like her UTI is not completely cleared up after antibiotics. When patient eats she getsreal nauseaous, when she has BM she gets sick), Urinary Frequency, and Abdominal Pain The patient presents to the office following a nose bleed two days ago. The patient voiced concernsas she is taking Xeralto for the past three years. She reports as she was vomiting her nose startedbleeding. She reports there was blood coming out of both nostrils. The bleeding lasted for five- seven minutes and the patient could taste blood throughout the day. No further nose bleeds noted. The patient reports she is not feeling well. She states she finished ABX 7-10 days ago for a UTI. She reports she first started bactrim but was changed to cipro for GI issues. The patient reports nausea, fatigued, and just a generalized malaise. She continues to have urgency, frequency, and pubic pr essure. The patient reports that her gastroparesis is flaring up with increased nausea, vomiting and flu like symptoms prior to BM. Patient is requesting a referral for GI, Dr Jensen who she has seen previously. Review of Systems Constitutional: Positive for appetite change (decreased) and fatigue. Negative for activity change,chills, diaphoresis and fever. HENT: Positive for nosebleeds (two days ago). Negative for congestion, ear discharge, ear pain, facial swelling, postnasal drip, rhinorrhea, sinus pressure, sinus pain and sore throat. Respiratory: Negative for apnea, cough, chest tightness and shortness of breath. Cardiovascular: Negative for chest pain and leg swelling. Gastrointestinal: Positive for nausea. Negative for diarrhea. Genitourinary: Positive for decreased urine volume, frequency and urgency. Negative for difficulty urinating, dyspareunia, dysuria, flank pain, genital sores, hematuria, menstrual problem, pelvic pain, vaginal bleeding and vaginal discharge. Musculoskeletal: Positive for myalgias. Neurological: Negative for weakness, light-headedness, numbness and headaches. Objective Objective: BP 136/88 Pulse 88 Temp 98.6 ??F (37 ??C) (Tympanic) Resp 16 Ht 5' 1 (1.549 m) Wt 299 lb9.6 oz (135.9 kg) SpO2 97% BMI 56.61 kg/m?? Physical Exam Vitals and nursing note reviewed. Exam conducted with a trim machine operator present. Constitutional: General: She is not in acute distress. Appearance: Normal appearance. She is obese. She is not ill-appearing, toxic- appearing or diaphoretic. HENT: Head: Normocephalic and atraumatic. Right Ear: Tympanic membrane, ear canal and external ear normal. There is no impacted cerumen. Left Ear: Tympanic membrane, ear canal and external ear normal. There is no impacted cerumen. Nose: Nose normal. No congestion or rhinorrhea. Right Nostril: No foreign body, epistaxis, septal hematoma or occlusion. Left Nostril: No foreign body, epistaxis, septal hematoma or occlusion. Right Turbinates: Not enlarged, swollen or pale. Left Turbinates: Not enlarged, swollen or pale. Right Sinus: No maxillary sinus tenderness or frontal sinus tenderness. Left Sinus: No maxillary sinus tenderness or frontal sinus tenderness. Mouth/Throat: Mouth: Mucous membranes are dry. Pharynx: No oropharyngeal exudate or posterior oropharyngeal erythema. Eyes: General: Right eye: No discharge. Left eye: No discharge. Conjunctiva/sclera: Conjunctivae normal. Cardiovascular: Rate and Rhythm: Normal rate and regular rhythm. Pulses: Normal pulses. Heart sounds: Normal heart sounds. No murmur. No friction rub. No gallop. Pulmonary: Effort: Pulmonary effort is normal. No respiratory distress. Breath sounds: No stridor. No wheezing, rhonchi or rales. Abdominal: General: Bowel sounds are normal. There is no distension. Palpations: Abdomen is soft. Tenderness: There is no abdominal tenderness. There is no right CVA tenderness, left CVA tendernessor guarding. Genitourinary: General: Normal vulva. Pubic Area: No rash or pubic lice. Labia: Right: No rash, tenderness, lesion or injury. Left: No rash, tenderness, lesion or injury. Musculoskeletal: General: No swelling or tenderness. Normal range of motion. Cervical back: Neck supple. No rigidity or tenderness. Skin: General: Skin is warm and dry. Neurological: General: No focal deficit present. Mental Status: She is alert and oriented to person, place, and time. Mental status is at baseline. Cranial Nerves: No cranial nerve deficit. Sensory: No sensory deficit. Motor: No weakness. Coordination: Coordination normal. Gait: Gait normal. Deep Tendon Reflexes: Reflexes normal. Psychiatric: Behavior: Behavior normal. Thought Content: Thought content normal. Judgment: Judgment normal. Vital Signs Vitals: 06/05/20 1542 BP: 136/88 Pulse: 88 Resp: 16 Temp: 98.6 ??F (37 ??C) TempSrc: Tympanic SpO2: 97% Weight: 299 lb 9.6 oz (135.9 kg) Height: 5' 1 (1.549 m) Lab Results Lab Requisition on 06/05/2020 Component Date Value Ref Range Status ??? SPECIFIC GRAVITY 06/05/2020 1.020 1.003 - 1.030 Final ??? URINE PH 06/05/2020 5.0 5.0 - 9.0 Final ??? WBC ESTERASE 06/05/2020 Negative Negative Final ??? NITRITE 06/05/2020 Negative Negative Final ??? PROTEIN, RANDOM URINE 06/05/2020 Negative Negative Final ??? URINE GLUCOSE, QUAL 06/05/2020 Negative Negative Final ??? URINE KETONES 06/05/2020 Negative Negative Final ??? UROBILINOGEN 06/05/2020 Normal Normal mg/dL Final ??? URINE BILIRUBIN 06/05/2020 Negative Negative Final ??? URINE BLOOD 06/05/2020 25 /uL* Negative leandro/ul Final ??? URINALYSIS COLOR 06/05/2020 Yellow Final ??? URINALYSIS CLARITY 06/05/2020 Clear Final ??? WBC (Urine) 06/05/2020 0-5 Negative, 0-5 /hpf Final ??? URINE RBC'S 06/05/2020 3-5* Negative, 0-2 /hpf Final ??? EPITHELIAL CELLS 06/05/2020 Small amount /lpf Final ??? BACTERIA, URINE 06/05/2020 Few* Negative /hpf Final Office Visit on 06/05/2020 Component Date Value Ref Range Status ??? SPECIFIC GRAVITY 06/05/2020 1.020 1.003 - 1.030 Final ??? URINE PH 06/05/2020 5.0 5.0 - 9.0 Final ??? UR, LEUKOCYTES 06/05/2020 Negative Negative Emerson/uL Final ??? UR, NITRITE 06/05/2020 Negative Negative Final ??? UR, PROTEIN 06/05/2020 Negative Negative mg/dL Final ??? UR, GLUCOSE 06/05/2020 Normal Normal mg/dL Final ??? UR, KETONE 06/05/2020 Negative Negative mg/dL Final ??? UR, UROBILINOGEN 06/05/2020 Normal Normal mg/dL Final ??? UR, BILIRUBIN 06/05/2020 Negative Negative mg/dL Final ??? UR. BLOOD 06/05/2020 Negative Negative Final ??? URINALYSIS COLOR 06/05/2020 Darcy Final ??? URINALYSIS CLARITY 06/05/2020 Clear Final Lab Results Component Value Date WBC 9.29 [...] 07/26/2019 GFRA >60 07/26/2019 TSH 3.960 07/26/2019 Please see results review for comprehensive lab results. Medical Decision Making: Assessment & Plan Diagnoses and all orders for this visit: Increased urinary frequency - POCT UA AUTOMATED W/O MICRO - URINALYSIS REFLEX IF INDICATED BY ABNORMAL RESULTS; Future Gastroparesis - GASTROENTEROLOGY REFERRAL; Future Mild epistaxis A UA w/ sebas collected to R/O UTI. GI referral for gastroparesis issues. Discussed she could be suffering from urinary retention due to bladder prolapse. The patient to follow up in the office for a pap smear within the next for weeks with Dr. Hermosillo. The patient voiced good understanding. Return if symptoms worsen or fail to improve. R TECHNICIAN documented in this encounter Plan of Treatment Upcoming Encounters Date Type Department Care Team (Late st Contact Info) Description 05/17/2024 2:45 PM FIBER TECHNICIAN Office Visit [facility] - Endocrinology - [place] [address] [place] [id number] Annel Rod MD [address] [facility] [address] [place] [address] Scheduled Orders Name Type Priority Associated Diagnoses Orde r Schedule URINALYSIS REFLEX IF INDICATED BY ABNORMAL RESULTS Lab Routine Increased urinary frequency Expected: 12/02/2020, Expires: 06/05/2021 Scheduled Referrals Name Type Priority Associated Diagnoses Order Schedule GASTROENTEROLOGY REFERRAL Outpatient Referral Less Than 4 weeks Gastroparesis Expected: 06/05/2020, Expires: 06/05/2021 documented as of this encounter Procedures Procedure Name Priority Date/Time Associated Diagnosis Comments POCT UA AUTOMATED W/O MICRO Routine 06/05/2020 4:40 PM FIBER TECHNICIAN Increased urinary frequency documented in this encounter Results * POCT UA AUTOMATED W/O MICRO (06/05/2020 4:40 PM FIBER TECHNICIAN) SPECIFIC GRAVITY 1.020 1.003 - 1.030 URINE PH 5.0 5.0 - 9.0 UR, LEUKOCYTES Negative Negative Emerson/uL UR, NITRITE Negative Negative UR, PROTEIN Negative Negative mg/dL UR, GLUCOSE Normal Normal mg/dL UR, KETONE Negative Negative mg/dL UR, UROBILINOGEN Normal Normal mg/dL UR, BILIRUBIN Negative Negative mg/dL UR. BLOOD Negative Negative URINALYSIS COLOR Darcy URINALYSIS CLARITY Clear Urine 06/05/2020 4:40 PM FIBER TECHNICIAN Pili Elkins ASSOCIATE SALES MANAGER, DISTRESSER POINT OF CARE TESTIN G (MANUAL) Final Result documented in this encounter Visit Diagnoses Diagnosis Increased urinary frequency- Primary Urinary frequency Gastroparesis Mild epistaxis documented in this encounter Additional Health Concerns Assessment Noted Time PHQ-9 Depression Total Score: 0 09/08/19 19 1:00 PM CDT documented as of this encounter Care Teams Glue Cook Relationship Specialty Start Date End Date Justen Gale MD [address] [facility] [address] [place] [address] PCP - General Family Medicine 10/17/17 documented as of this encounter
--- OUTSIDE RECORDS SUMMARY | 2024-04-26 03:00 | XMS_ITS | Encounter Summary ---
Author Organization [facility] Address [address] [place] [address] Phone Care Team Providers Care Clothes Presser Name Role Phone Justen Gale MD Primary Care Provider [phone] Reason for Visit * Reason Comments ED Follow-up ED f/u Encounter Details Date Type Department Care Team (Late st Contact Info) Description 07/20/2020 3:30 PM CDT Office Visit [facility] - Family Medicine [facility] [address] [place] [phone] Pili Elkins, ZAMZAM, BOTTOM TURNER [address] [phone] CRP elevated (Primary Dx); Essential hypertension; 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 Discharge Disposition: Discharged to home or Selfcare [...] Sign Reading Time Taken Comments Blood Pressure 128/76 07/20/2020 3:28 PM CDT Pulse 104 07/20/2020 3:28 PM CDT Temperature 36.3 ??C (97.4 ??F) 07/20/2020 3:28 PM CD T Respiratory Rate 16 07/20/2020 3:28 PM CDT Oxygen Saturation 97% 07/20/2020 3:28 PM CDT Inhaled Oxygen Concentration - - Weight 136.1 kg (300 lb) 07/20/2020 3:28 PM CDT Height 154.9 cm (5' 1 ) 07/20/2020 3:28 PM CDT Body Mass Index 56.68 07/20/2020 3:28 PM CDT documented in this encounter Progress Notes * Kerry Selby, IT WEB DEVELOPMENT CONSULTANT - 07/20/2020 3:30 PM CDT Karly Winston Marques, 65 y.o., female is here for ED Follow-up (ED f/u ) Medication Refills: Patient reports/denies need for medication refills. Orders Pended: no Requested Prescriptions No prescriptions requested or ordered in this encounter Home Medications Medication Sig Start Date End Date Taking? Authorizing Provider amitriptyline (ELAVIL) 25 MG Tablet 02/18/19 Yes ProviderTyler MD atorvastatin (LIPITOR) 20 MG Tablet Take 1 Tab by mouth daily. Patient not taking: Reported on 11/18/2019 01/19/18 Annel Rod MD Blood Glucose Monitoring Suppl Device Diagnosis: Diabetes Type 2 Blood testing frequency: 4 times aday 11/21/17 Justen Gale MD exemestane (AROMASIN) 25 MG Tablet Take 25 mg by mouth daily. ProviderTyler MD famotidine (PEPCID) 20 MG Tablet Take 1 Tab by mouth 2 times daily. Patient not taking: Reported on 06/05/2020 02/17/20 Pili Elkins APN, BOTTOM TURNER Glucose Blood (ONE TOUCH ULTRA TEST) Strip [...] mouth daily. 07/13/20 Yes Justen Gale MD [facility]isc[facility] Devices [facility]: 02/25/19 Yes Justen Gale MD ondansetron (ZOFRAN) 4 MG Tablet TAKE 1 TABLET BY MOUTH EVERY 8 HOURS NEEDED FOR NAUSEA 08/07/19 Justen Gale MD ondansetron (ZOFRAN-ODT) 4 MG [...] Glycol 3350 (MIRALAX PO) Take by mouth. Tyler Smith MD rivaroxaban (XARELTO) 20 MG Tablet Take 20 mg by mouth daily. Yes Tyler Smith MD rOPINIROLE (REQUIP) 5 MG Tablet TAKE 1 TABLET BY MOUTH EVERY NIGHT 03/09/20 Yes Justen Gale MD tiZANidine (ZANAFLEX) 2 MG Capsule Take 1 Tablet by mouth. 07/10/20 Tyler Smith MD There are no discontinued [...] (0-64 years) (1 of 3 - PCV13) Never done ??? Pap Smear Never done ??? Zoster Immunization (1 of 2) Never done Orders Pended: no The following BPA's have been addressed with the patient today: Pap and Depression * Pili Elkins APN, NETTA - 07/20/2020 3:30 PM CDT [facility] [place] #2 [facility] [address] Dept: [phone] Dept Loc: [phone] Loc Patient: Karly Marques : 1955 Sex: female Subjective Subjective: HPI: Karly Marques presents for ED Follow-up (ED f/u ) Patient presents today for ER follow-up from July 09 at [facility] for back pain and generalized body aches. She also needs her hypertension medications refilled. She also needs to reschedule her Pap smear. Patient reports she presented to the emergency room due to severe back pain. Patient reports she has a history of chronic low back pain and she is currently seeing Pain Management who started doing injections and she will be starting physical therapy as well. She is also on hydrocodone for this. She reports that while she was in the ER her ESR and CRP were elevated. This concerned her as she has a history of breast cancer that was successfully treated 5 years ago. History of bilateral mastectomy. She reports she has also not been feeling very well for the last couple of weeks. She reports lack of energy, no stamina, and poor appetite. She is hoping that as her back gets better controlled that this will help improve her symptoms. She reports her symptoms have improved since the emergency department. Past Medical History Positives Diagnosis Date ??? [...] ??? amitriptyline (ELAVIL) 25 MG Tablet ??? atorvastatin (LIPITOR) 20 MG Tablet Take 1 Tab by mouth daily. (Patient not taking: Reported on11/18/2019) 90 Tab 3 ??? Blood Glucose Monitoring Suppl Device Diagnosis: Diabetes Type 2 Blood testing frequency: 4 times a day 1 Each 0 ??? exemestane (AROMASIN) 25 MG Tablet Take 25 mg by mouth daily. ??? famotidine (PEPCID) 20 MG Tablet Take 1 Tab by mouth 2 times daily. (Patient not taking: Reported on 06/05/2020) 90 Tab 3 ??? Glucose Blood (ONE TOUCH ULTRA [...] MM Misc USE SIX TIMES DAILY DIRECTED 100 Pen Needle 11 ??? Lantus SoloStar 100 UNIT/ML Solution Pen-injector INJECT 50 UNITS SUBCUTANEOUSLY EVERY MORNING 45 mL 0 ??? lisinopril (PRINIVIL, ZESTRIL) 20 MG Tablet Take 1 Tablet by mouth daily. 90 Tablet 1 ??? Misc. Devices Misc Supply and instructions: 1 Each 0 ??? ondansetron (ZOFRAN) 4 MG Tablet TAKE 1 TABLET BY MOUTH EVERY 8 HOURS NEEDED FOR NAUSEA 15 Tab 9 ??? ondansetron (ZOFRAN-ODT) 4 MG TABLET DISPERSIBLE Take 4 mg by mouth. ??? ONETOUCH DELICA LANCETS 33G Misc 1 Lancet [...] MG Capsule Take 1 Tablet by mouth. No current facility-administered medications on file prior to visit. Allergies Allergen Reactions ??? Ceftriaxone Anaphylaxis ??? Cephalosporins Anaphylaxis ??? Oxycodone Unknown ??? Reglan [Metoclopramide Hcl] Unknown ??? Trazodone Other (see Comments) Shaky, restlessness, itching, throat swelling Review of Systems Constitutional: Positive for activity change, appetite change and fatigue. Negative for chills, diaphoresis and fever. Respiratory: Negative for cough, chest tightness, shortness of breath and wheezing. Cardiovascular: Negative for chest pain and palpitations. Musculoskeletal: Positive for back pain (chronic). Negative for arthralgias, gait problem, joint swelling, myalgias, neck pain and neck stiffness. Skin: Negative for rash and wound. Neurological: Negative for dizziness, weakness, numbness and headaches. Psychiatric/Behavioral: Negative for agitation, confusion, decreased concentration, dysphoric mood and sleep disturbance. The patient is not nervous/anxious and is not hyperactive. Objective Objective: BP 128/76 Pulse 104 Temp 97.4 ??F (36.3 ??C) (Temporal) Resp 16 Ht 5' 1 (1.549 m) Wt 300lb (136.1 kg) SpO2 97% BMI 56.68 kg/m?? Physical Exam Vitals and nursing note [...] No stridor. No wheezing, rhonchi or rales. Musculoskeletal: Cervical back: Normal range of motion. Lumbar back: Tenderness present. No swelling, edema, signs of trauma, spasms or bony tenderness. Decreased range of motion. Right lower leg: No [...] normal. Judgment: Judgment normal. Vital Signs Vitals: 07/20/20 1528 BP: 128/76 Pulse: 104 Resp: 16 Temp: 97.4 ??F (36.3 ??C) TempSrc: Temporal SpO2: 97% Weight: 300 lb (136.1 kg) Height: 5' 1 (1.549 m) Lab Results No visits with results within 1 Month(s) from this visit. Latest known visit with results is: Lab Requisition on 06/05/2020 Component Date Value [...] BACTERIA, URINE 06/05/2020 Few* Negative /hpf Final Lab Results Component Value Date WBC [...] Diagnoses and all orders for this visit: CRP elevated - RHEUMATOID FACTOR (RF) SCREEN; Future - Cancel: URIC ACID (BLOOD ASSAY); Future - ERYTHROCYTE SEDIMENTATION RATE (ESR); Future - C-REACTIVE PROTEIN (CRP) QUANT; Future - ANTINUCLEAR ANTIBODY (HONEY), TITER IF POS; Future - COMPLETE BLOOD COUNT (CBC) WITH DIFF; Future Essential hypertension - LIPID PANEL; Future - CMP (COMPREHENSIVE METABOLIC PANEL); Future 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 Other orders - tiZANidine (ZANAFLEX) 2 MG Capsule; Take 1 Tablet by mouth. - ondansetron (ZOFRAN-ODT) 4 MG TABLET DISPERSIBLE; Take 4 mg by mouth. Discussed with patient about elevated CRP. Ordered further lab testing. She does have a history of breast cancer but reports she has a follow-up with her oncologist coming up. I will also order cholesterol panel she is due due to history of hypertension. Patient to follow-up in 6 months with PCP. Patient also to follow-up if symptoms fail to improve and for Pap smear. Return in about 6 months (around 01/20/2021). documented in this encounter Plan of Treatment Upcoming Encounters Date Type Department Care Team (Late st Contact Info) Description 05/17/2024 2:45 PM ART COORDINATOR Office Visit [facility] - Endocrinology - [place] [address]2 [place] [address] Annel Rod MD #[address] [address] Scheduled Orders Name Type Priority Associated Diagnoses Orde r Schedule RHEUMATOID FACTOR (RF) SCREEN Lab Routine CRP elevated Expected: 03/16/2021, Expires: 04/23/2021 ERYTHROCYTE SEDIMENTATION RATE (ESR) Lab Routine CRP elevated Expected: 01/20/2022, Expires: 04/21/2022 C-REACTIVE PROTEIN (CRP) QUANT Lab Routine CRP elevated Expected: 07/20/2020, Expires: 09/18/2020 ANTINUCLEAR ANTIBODY (HONEY), TITER IF POS Lab Routine CRP elevated Expected: 07/20/2020, Expires: 09/18/2020 COMPLETE BLOOD COUNT (CBC) WITH DIFF Lab Routine CRP elevated Expected: 07/09/2021 (Approximate), Expires: 07/09/2022 LIPID PANEL Lab Routine Essential hypertension Expected: 07/19/2021, Expires: 01/19/2022 CMP (COMPREHENSIVE METABOLIC PANEL) Lab Routine Essential hypertension Expected: 01/20/2021, Expires: 04/21/2021 documented as of this encounter Visit Diagnoses Diagnosis CRP elevated- Primary Elevated C-reactive protein (CRP) Essential hypertension Unspecified essential hypertension 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 documented in this encounter Additional Health Concerns Assessment Noted Time PHQ-9 Depression Total Score: 0 07/21/19 21 3:00 PM CDT documented as of this encounter Care Teams Clothes Presser Relationship Specialty Start Date End Date Justen Gale MD [address] [address] PCP - General Family Medicine 10/17/17 documented as of this encounter
--- OUTSIDE RECORDS SUMMARY | 2024-04-26 03:00 | XMS_ITS | Encounter Summary ---
Author Organization [facility] Address [address] [place] [address] Phone Care Team Providers Care Steel Unloader Name Role Phone Justen Gale MD Primary Care Provider [phone] David Roberts APRN, SAND MIXER OPERATOR Unavailable [phone] Annel Rod MD Unavailable Encounter Details Date Type Department Care Team (Late st Contact Info) Description 06/05/2020 Lab Requisition [facility] [address] [place] [address] Pili Elkins APRN, SAND MIXER OPERATOR #[address] [address] Frequency of micturition Social History Tobacco Use Types Packs/Day Years [...] COVID-19? No / Unsure 2020 11:37 AM CHAIN SALES CONSULTANT documented as of this encounter Plan of Treatment Upcoming Encounters Date Type Department Care Team (Late st Contact Info) Description 05/17/2024 2:45 PM CHAIN SALES CONSULTANT [facility] - [place] [address] [place] [address] Annel Rod [facility] [address] [address] documented as of this encounter Procedures Procedure Name Priority Date/Time Associated Diagnosis Comments URINALYSIS REFLEX IF INDICATED BY ABNORMAL RESULTS Routine 06/05/2020 4:45 PM CHAIN SALES CONSULTANT Frequency of micturition documented in this encounter Results * (ABNORMAL) URINALYSIS REFLEX IF INDICATED BY ABNORMAL RESULTS (06/05/2020 4:45 PM CHAIN SALES CONSULTANT) SPECIFIC GRAVITY 1.020 1.003 - 1.030 06/05/2020 5:19 PM CHAIN SALES CONSULTANT [facility] URINE PH 5.0 5.0 - 9.0 06/05/2020 5:19 PM CHAIN SALES CONSULTANT [facility] WBC ESTERASE Negative Negative 06/05/2020 5:19 PM CHAIN SALES CONSULTANT [facility] NITRITE Negative Negative 06/05/2020 5:19 PM CHAIN SALES CONSULTANT [facility] PROTEIN, RANDOM URINE Negative Negative 06/05/2020 5:19 PM CHAIN SALES CONSULTANT [facility] URINE GLUCOSE, QUAL Negative Negative 06/05/2020 5:19 PM CHAIN SALES CONSULTANT [facility] URINE KETONES Negative Negative 06/05/2020 5:19 PM CHAIN SALES CONSULTANT [facility] UROBILINOGEN Normal Normal mg/dL 06/05/2020 5:19 PM CHAIN SALES CONSULTANT [facility] URINE BILIRUBIN Negative Negative 5:19 PM CHAIN SALES CONSULTANT [facility] URINE BLOOD 25 /uL(A) Negative leandro/ul 06/05/2020 5:19 PM CHAIN SALES CONSULTANT [facility] URINALYSIS COLOR Yellow 06/05/19 5:19 PM CHAIN SALES CONSULTANT [facility] URINALYSIS CLARITY Clear 06/05/2020 5:19 PM CHAIN SALES CONSULTANT [facility] WBC (Urine) 0-5 Negative, 0-5 /hpf 06/05/2020 5:19 PM CHAIN SALES CONSULTANT [facility] URINE RBC'S 3-5(A) Negative, 0-2 /hpf 06/05/2020 5:19 PM CHAIN SALES CONSULTANT [facility] EPITHELIAL CELLS Small amount /lpf 2020 5:19 PM CHAIN SALES CONSULTANT [facility] BACTERIA, URINE Few(A) Negative /hpf 06/05/2020 5:19 PM CHAIN SALES CONSULTANT [facility] Urine URINE SPECIMEN / Unknown Non-Phlebotomy Collection / Unknown 06/05/2020 4:45 PM CHAIN SALES CONSULTANT 06/05/2020 5:00 PM CHAIN SALES CONSULTANT us Pili Elkins TIMBER GRADER, SAND MIXER OPERATOR URINE ORDERABLES Fin al Result [facility] #[address] [place] [address] documented in this encounter Visit Diagnoses Diagnosis Frequency of micturition Urinary frequency documented in this encounter Additional Health Concerns Assessment Noted Time PHQ-9 Depression Total Score: 0 09/08/19 1:00 PM CDT documented as of this encounter Care Teams Steel Unloader Relationship Specialty Start Date End Date Justen Gale MD #[address] [address] PCP - General Family Medicine 10/17/17 David Roberts APRN, SAND MIXER OPERATOR #[address] [place] [address] Nurse Practitioner Advanced Practice Nurse 01/31/22 Annel Rod MD #[address] [address] Consulting Physician Endocrinology 07/01/22 documented as of this encounter
--- OUTSIDE RECORDS SUMMARY | 2024-04-26 03:00 | XMS_ITS | Encounter Summary ---
Author Organization [facility] Address [address] [place] [address] Phone Care Team Providers Care Diamond Polisher Name Role Phone Justen Gale MD Primary Care Provider [phone] Reason for Visit * Reason Onset Date Comments supplies 09/09/2020 CPAP Encounter Details Date Type Department Care Team (Late st Contact Info) Description 09/09/2020 Telephone [facility] [place] #2 [place] [address] Justen Gale MD #[address] [address] supplies (CPAP) Social History Tobacco Use Types Packs/Day Years [...] Telephone Encounter - Elma Sykes RN - 09/14/2020 9:43 AM CDT Order, face sheet and last office visit note faxed to pt. I do not have a copy of pt's last sleep study. LMOM for pt that she needs to provide [facility] and this office with a copy of her sleep study. * Telephone Encounter - Lila Douglas RN - 09/11/2020 3:14 PM CDT Patient calling. States that she is not going to go with [employer] for her CPAP supplies. Would like the order faxed to [facility] and their fax is [phone] States they will need the orders, a demographic page, and a copy of the patient's last sleep study. Their phone number is [phone] Routing to NURIS Wills. * Telephone Encounter - Elma Sykes RN - 09/11/2020 10:18 AM CDT Contacted [employer] and found that this pt has account with [employer]. Will send new order to them atthis time. * Telephone Encounter - Elma Sykes RN - 09/09/2020 2:37 PM CDT Unable to contact pt, talked to . I was calling to see what [employer] the pt gets her CPAPsupplies from. is not sure, he will have pt return call. Please find out name of company and sent that information to Elma LWALER with Dr. Gale. Thank you. documented in this encounter Plan of Treatment Upcoming Encounters Date Type Department Care Team (Late st Contact Info) Description 05/17/2024 2:45 PM INTENSIVE CARE SPECIALIST Office Visit [facility] - Endocr[facility]ology - [place] #2 [place] [address] Annel Rod MD #2 [facility] [address] [place] [address] documented as of this encounter Visit Diagnoses Not on filedocumented in this encounter Additional Health Concerns Assessment Noted Time PHQ-9 Depression Total Score: 0 07/21/19 21 3:00 PM CDT documented as of this encounter Care Teams Diamond Polisher Relationship Specialty Start Date End Date Justen Gale MD #2 [facility] [address] [place] [address] PCP - General Family Medicine 10/17/17 documented as of this encounter
--- OUTSIDE RECORDS SUMMARY | 2024-04-26 03:00 | XMS_ITS | Encounter Summary ---
Author Organization [facility] Address [address] [place] [address] Phone Care Team Providers Care Direct Service Professional Name Role Phone Justen Gale MD Primary Care Provider [phone] Reason for Visit * Reason Onset Date Comments Back Pain 07/22/2020 Generalized Weakness 07/22/2020 Breathing Problem 07/22/2020 Encounter Details Date Type Department Care Team (Late st Contact Info) Description 07/22/2020 [facility] [address] [place] [phone] Justen Gale MD #[address] [address] Back Pain; Generalized Weakness; Breathing Problem Social History Tobacco Use Types [...] encounter Miscellaneous Notes * Telephone Encounter - Maurice Garciaree Snow RN - 07/22/2020 8:50 PM CDT SITUATION (caller perception/concerns): Back pain, body aches, weakness, breathing difficulty BACKGROUND (events leading up to call): Went to ED 1 week ago for pain in back, aching everywhere, pain in arms. Today, difficulty getting out of bed, hurts everywhere. Feels like she is not breathing correctly. Difficulty walking to kitchen. Sees a specialist (provider name, reason): LINDA Wang, Gastroenterology History: COVID vaccine 3 weeks ago. DVT, PE - on blood thinner; diabetes, breast cancer, cerebral vascular accident, hypertension, hyperlipidemia (please see Snap Shot for complete list) ASSESSMENT: Onset: Today Symptoms: Change in breathing - feels like she needs to have constant air blowing on her. Speaking in short phrases, taking a breath after a couple words. Feels like she has to take frequent deep breaths. Reports her breathing has been weird all day. Weakness - difficulty walking to kitchen. Arms and legs are achy. Pain: Generalized pain all over body. Temp (route, time): Denies fever or chills. Other Symptoms: Lost 6 pounds in past week. Feels hungry, but then feels sick as soon as she tries eat. Blood glucose levels have been elevated - 247 just prior to call, not fasting. Have been running 200-300. Was 178 when she woke this morning. Treatment with response: Rest - no improvement, seems to be feeling worse. RECOMMENDATION: Will go to ED now. See care advice and disposition for guideline. [...] or WORSE than normal Protocols used: BREATHING [id number] documented in this encounter Plan of Treatment Upcoming Encounters Date Type Department Care Team (Late st Contact Info) Description 05/17/2024 2:45 PM ACTUARIAL SCIENCE TEACHER Office Visit [facility] - [facility] - [place] #2 [place] [address] Annel Rod MD #2 [facility] [address] [place] [address] documented as of this encounter Visit Diagnoses Not on filedocumented in this encounter Additional Health Concerns Assessment Noted Time PHQ-9 Depression Total Score: 0 07/21/19 21 3:00 PM CDT documented as of this encounter Care Teams Direct Service Professional Relationship Specialty Start Date End Date Justen Gale MD #2 [facility] [address] [place] [address] PCP - General Family Medicine 10/17/17 documented as of this encounter
--- OUTSIDE RECORDS SUMMARY | 2024-04-26 03:00 | XMS_ITS | Encounter Summary ---
Author Organization [employer] Care Team Providers Care Millinery Blocker Name Role Phone Justen Gale MD Primary Care Provider [phone] Encounter Details Date Type Department Care Team (Latest Contact Info) Description 07/20/2020 Travel Social History Tobacco Use Types Packs/Day [...] Contact Info) Description 05/17/2024 2:45 PM FIELD MECHANICAL METER TESTER Office Visit [facility] - [place] #[address] [place] [address] Annel Rod MD [address] [address] documented as of this encounter Visit Diagnoses Not on filedocumented in this encounter Additional Health Concerns Assessment Noted Time PHQ-9 Depression Total Score: 0 07/21/19 21 3:00 PM CDT documented as of this encounter Care Teams Millinery Blocker Relationship Specialty Start Date End Date Justen Gale MD #2 [place] [id number] PCP - General Family Medicine 10/17/17 documented as of this encounter
--- OUTSIDE RECORDS SUMMARY | 2024-04-26 03:00 | XMS_ITS | Encounter Summary ---
Author Organization [facility] Address [address] [place] [address] Phone Care Team Providers Care Guard Rail Installer Name Role Phone Justen Gale MD Primary Care Provider [phone] Encounter Details Date Type Department Care Team (Late st Contact Info) Description 07/27/2020 Telephone [facility] [address] [place] [address] Justen Gale MD #[address] [address] Social History Tobacco Use Types Packs/Day Years [...] Telephone Encounter - Berenice Reyes RN - 07/30/2020 9:16 AM CDT Unable to reach patient by phone. Sent to my chart. * Telephone Encounter - Berenice Reyes RN - 07/29/2020 12:35 PM CDT LVM #2 * Telephone Encounter - Elma Sykes RN - 07/28/2020 11:09 AM CDT LMOM, please give provider's message. * Telephone Encounter - Pili Elkins APN, CNP - 07/27/2020 3:56 PM CDT Did she obtain the lab work I ordered during her visit? It appears to be incomplete upon review of the chart * Telephone Encounter - Danyelle Pimentel RN - 07/27/2020 3:26 PM CDT Patient states that she she is so sick and she has to push herself to get up and move. She had infections before and she feels weak. Gland in front of right ear is swollen for 2-3 weeks and goes downto her jaw, hurts to eat and open her mouth. She is achy everywhere and weak. Feels fatigued and extremely exhausted feeling. Feels heavy. Received COVID vaccine 1 month ago. Has been feeling like this since she had the vaccine. She doesn't know what to do. She's been ER 2 times and they don't do anything, Saw Pili and referrals wereplaced but she hasn't been able to see anyone yet. Asking for any advise on what to do. I advised she try boosting her immune system with some extra vitamins right now. She hasn't had an appetite and has had all these symptoms since getting the vaccine. documented in this encounter Plan of Treatment Upcoming Encounters Date Type Department Care Team (Late st Contact Info) Description 05/17/2024 2:45 PM SPECIFICATION WRITER Office Visit [facility] - [place] #2 [facility] [place] [address] Annel Rod MD #2 [facility] [address] [place] [address] documented as of this encounter Visit Diagnoses Not on filedocumented in this encounter Additional Health Concerns Assessment Noted Time PHQ-9 Depression Total Score: 0 07/21/19 21 3:00 PM CDT documented as of this encounter Care Teams Guard Rail Installer Relationship Specialty Start Date End Date Justen Gale MD [facility] [address] [place] [address] PCP - General Family Medicine 10/17/17 documented as of this encounter
--- OUTSIDE RECORDS SUMMARY | 2024-04-26 03:00 | XMS_ITS | Encounter Summary ---
Author Organization [facility] Address [address] [place] [address] Phone Care Team Providers Care Compensation Expert Name Role Phone Justen Gale MD Primary Care Provider [phone] Reason for Visit * Reason Onset Date Comments Medication Refill 07/13/2020 Encounter Details Date Type Department Care Team (Late st Contact Info) Description 07/13/2020 Refill [facility] #2 [place] [address] Justen Gale MD #[address] [address] Medication Refill Social History Tobacco Use Types [...] Telephone Encounter - Marlys Anderson RN - 07/14/2020 11:36 AM CDT The original prescription was reordered on 07/13/2020 by Marlys Anderson, RN * Telephone Encounter - Bianca Pulido RMA - 07/14/2020 11:10 AM CDT Scheduled July 28 * Telephone Encounter - Елена Howe RN - 07/13/2020 2:25 PM CDT Please call pt and schedule follow up appt for med request refill approval. * Telephone Encounter - Anastasia Gunderson - 07/13/2020 1:09 PM CDT Received a faxed Rx request from pharmacy. Reordered refill medication(s) requested and pended for nurse and physician/ERIC review. Refill encounter routed to nurse Tiffanierihammad's pool for processing. documented in this encounter Plan of Treatment Upcoming Encounters Date Type Department Care Team (Late st Contact Info) Description 05/17/2024 2:45 PM MINK FARMER Office Visit [facility] - Endocrinology - [place] #2 [place] [phone] Annel Rod MD #[address] [address] documented as of this encounter Visit Diagnoses Not on filedocumented in this encounter Additional Health Concerns Assessment Noted Time PHQ-9 Depression Total Score: 0 09/08/19 19 1:00 PM CDT documented as of this encounter Care Teams Compensation Expert Relationship Specialty Start Date End Date Justen Gale MD #[address] [address] PCP - General Family Medicine 10/17/17 documented as of this encounter
--- OUTSIDE RECORDS SUMMARY | 2024-04-26 03:00 | XMS_ITS | Encounter Summary ---
Author Organization [facility] Address [address] [place] [address] Phone Care Team Providers Care Pressure Sealer And Tester Name Role Phone Justen Gale MD Primary Care Provider [phone] Reason for Visit * Reason Onset Date Comments Gastrointestinal Problem 06/25/2020 Nausea 06/25/2020 Shortness of Breath 06/25/2020 Chest Pain 06/25/2020 Encounter Details Date Type Department Care Team (Late st Contact Info) Description 06/25/2020 Nurse Triage [facility] [address] [place] [phone] Justen Gale MD #[address] [address] Gastrointestinal Problem; Nausea; Shortness of Breath; Chest Pain Social History Tobacco Use Types Packs/Day [...] COVID-19? No / Unsure 06/25/2020 1:09 PM VENDER documented as of this encounter Miscellaneous Notes * Telephone Encounter - Concepcion Rodriguez Gwendolyn RN - 06/25/2020 12:42 PM VENDER Images from the original note were not included. SITUATION: Lots of gastro issues BACKGROUND: Had endoscopy- Has gastroparesis, diabetic ASSESSMENT: Symptom Description / Location: can't hardly eat, ate 25 -30 minutes ago, feels like she is going to pass out, hot flashes, shortness of breath, tightness in chest and like she can't take a deep breath in and all this starts happening when she starts to eat . Also will start shaking when she first and says she can't lay falt and seems to happen more in the evenings- BS is 137 , then will start burping and is gassy And will try to go have a BM and says at times when she does have a BM that she will feel a lot better and sometimes just a little better. Sometimes wakes her up in middle of the night and can't breath and she is so weak she can hardly walk to the bathroom. Sometimes it will hurt really bad in her low back . Says that she always checks BS to make sure it isn't low and it isn't ever low or high. Nausea, no dizziness, weak, shakes likes when she had bad infections and feels really weak, drinking fine and water mainly except one cup of coffee in the am, BM usually once or twicea day, has not gone since yesterday evening, right side of jaw is painful, gland under right ear istender and sore, pain in chest goes to back at times, no wheezing, speaks in phrases, shortness of breath at rest but not as bad as normal, Pain (0-10): 08/01 Temp: no fever or chills Treatment / Response: norco at 0500 RECOMMENDATION: See care advice and disposition for Guideline First positive answer recorded, all responses to prior questions were negative. If symptoms increase, change or if new symptoms develop, call your HCP or call back. Recommendations were based on caller information and is not a diagnosis. Verified and reviewed all triage information with caller. Reason for Disposition ??? MODERATE difficulty breathing (e.g., speaks in phrases, SOB even at rest, pulse 100-120) of newonset or worse than normal Protocols used: BREATHING [id number] Travel Screening Question Response In the last month, have you been in contact with someone who was confirmed or suspected to have Coronavirus / COVID-19? No / Unsure Have you had a COVID-19 viral test in the last 14 days? No Do you have any of the following new or worsening symptoms? Chills;Weakness;Severe headache;Shortness of breath (nausea) Have you traveled internationally in the last month? No Travel History Travel since 05/28/20 No documented travel since 05/28/20 COVID-19 Testing Priority for Karly Marques: 2 RECOMMENDATION: See care advice and disposition for Guidelines First positive answer recorded, all responses to prior questions were negative. If symptoms increase, change, or if new symptoms develop, call back or call your HCP. Recommendations were based on caller information and are not a diagnosis. Verified and reviewed all triage information with caller. Patient request for an excuse note: (Per CDC: Employers should not require a positive COVID-19 testresult or a healthcare provider's note for employees who are sick to validate their illness, qualify for sick leave, or to return to work.) o If patient continues to request/need a return to work note, ask them to send a request via [employer] to their provider (you may need to activate a [employer] account with them). You may also route an excuse note request to the provider. Inform the patient that the provider will determine if a note will be sent and let them know that a telephone visit may be required. Caller verbalizes understanding of the above information. CONCEPCION RODRIGUEZ RN Meds/allergies and pharmacy verified. Verbalized understanding of all care advice given Will go to ED [facility] in [place], [place] ER documented in this encounter Plan of Treatment Upcoming Encounters Date Type Department Care Team (Late st Contact Info) Description 05/17/2024 2:45 PM VENDER Office Visit [facility] - Endocrinology - [place] [address] [place] [address] Annel Rod MD #[address] [facility] [address] [place] [address] documented as of this encounter Visit Diagnoses Not on filedocumented in this encounter Additional Health Concerns Assessment Noted Time PHQ-9 Depression Total Score: 0 09/08/19 19 1:00 PM CDT documented as of this encounter Care Teams Pressure Sealer And Tester Relationship Specialty Start Date End Date Justen Gale MD [address] [facility] [address] [place] [address] PCP - General Family Medicine 10/17/17 documented as of this encounter
--- OUTSIDE RECORDS SUMMARY | 2024-04-26 03:00 | XMS_ITS | Encounter Summary ---
Author Organization [facility] Address [address] [place] [address] Phone Care Team Providers Care Sample Stitcher Name Role Phone Justen Gale MD Primary Care Provider [phone] David Roberts APRN, SECURITY SYSTEMS INSTALLER Unavailable [phone] Annel Rod MD Unavailable Reason for Visit * Reason Onset Date Comments Sore Throat 06/29/2020 Encounter Details Date Type Department Care Team (Late st Contact Info) Description 06/29/2020 Telephone [facility] #[address] [place] [address] Justen Gale MD [address] [address] Sore Throat Social History Tobacco Use Types [...] COVID-19? No / Unsure 06/29/2020 8:43 AM MEDIA THEORIST AND AUTHOR OF documented as of this encounter Miscellaneous Notes * Telephone Encounter - Gail Lucero RN - 06/29/2020 3:53 PM CST Attempted to call mailbox is full. Pt does not need testing A THEORIST AND AUTHOR OF * Telephone Encounter - Vince Hermosillo MD - 06/29/2020 3:13 PM CST No covid testing needed. If the er thought that it was warranted then they would have done this. A THEORIST AND AUTHOR OF * Telephone Encounter - Marlys Sorensen RN - 06/29/2020 8:36 AM CST Patient calling. Patient is calling to schedule Hospital/ED/Prompt-Care follow up appointment. Hospital/ED/Prompt-Care Site: [facility] ED Records Requested: Yes Reason for Hospitalization/ED/Prompt-Care Visit: SOB Admission Date (if applicable): 06/25/20 Discharge Date (if applicable): 06/25/20 Medication Changes (if applicable): No new medication Imaging Completed/Referrals Needed (if applicable): Bloodwork all negative Appointment Scheduled: See below. Routed update to provider to notify. SITUATION: Patient was in ED 06/25/20 for SOB. No COVID testing done at that time has yearly PAP this morning in office and calling to see if that should be cancelled. BACKGROUND: Has had drainage down back of throat for a few days ASSESSMENT: Symptom Description / Location: This morning she woke up with sore throat on right side and gland in front of her right ear is tender to touch. Has some soreness when she opens her mouth wide on thatright side as well. Still able to swallow. Drainage is making her throat feel thick in the back. Denies runny runny nose or cough. The SOB has gotten better since ED visit. She has not been eating asmuch all at one time and that seems to be helping. Pain (0-10): ST - 06/03 Temp: Denies Treatment / Response: Nothing LMP / / : postmenopausal RECOMMENDATION: See care advice and disposition for Guideline First positive answer recorded, all responses to prior questions were negative. If symptoms increase, change or if new symptoms develop, call your HCP or call back. Recommendations were based on caller information and is not a diagnosis. Verified and reviewed all triage information with caller. Attempted to call backline to office, but no answer. Patient is fine with cancelling her yearly PAP this morning d/t her symptoms. Do you want to order COVID testing before scheduling her in the office for ED f/up and yearly PAP appointments? Please advise. A THEORIST AND AUTHOR OF documented in this encounter Plan of Treatment Upcoming Encounters Date Type Department Care Team (Late st Contact Info) Description 05/17/2024 2:45 PM MEDIA THEORIST AND AUTHOR OF Office Visit [facility] - Endocrinology [facility] #2 [place] [address] Annel Rod MD #2 [facility] [address] [place] [address] documented as of this encounter Visit Diagnoses Not on filedocumented in this encounter Additional Health Concerns Assessment Noted Time PHQ-9 Depression Total Score: 0 09/08/19 19 1:00 PM CDT documented as of this encounter Care Teams Sample Stitcher Relationship Specialty Start Date End Date Justen Gale MD #2 [facility] [address] [place] [address] PCP - General Family Medicine 10/17/17 David Roberts, CHIEF POWER DISPATCHER, SECURITY SYSTEMS INSTALLER #2 [place] [address] Nurse Practitioner Advanced Practice Nurse 01/31/22 Annel Rod MD #2 [place] [phone] Consulting Physician Endocrinology 07/01/22 documented as of this encounter
--- OUTSIDE RECORDS SUMMARY | 2024-04-26 03:00 | XMS_ITS | Encounter Summary ---
Author Organization [facility] Address [address] [facility] [place] [address] Phone Care Team Providers Care Assistant Pressman Name Role Phone Justen Gale MD Primary Care Provider [phone] Reason for Visit * Reason Onset Date Comments High Blood Sugar 05/07/2020 Encounter Details Date Type Department Care Team (Late st Contact Info) Description 05/07/2020 Nurse Triage [facility] [address] [place] [address] Justen Gale MD #[address] [address] High Blood Sugar Social History Tobacco Use [...] encounter Miscellaneous Notes * Telephone Encounter - Laury Marte RN - 05/07/2020 10:57 PM COMMERCIAL DEVELOPMENT MANAGER SITUATION (caller perception/concerns): High blood sugar BACKGROUND (events leading up to call): Patient states she has been without her Lantus for the past3 days - usually takes 50 units every morning. Did get refill this afternoon and took 9 units about3 hours ago ASSESSMENT: Patient calling - states that since she has not been taking Lantus for past 3 days, blood sugars having been running high. Currently is 476. Feeling tired and mouth is dry. Has been taking her short acting insulin - took 28 units 5 hours ago. RECOMMENDATION: Diabetes - High Blood Sugar Guideline utilized. RN informed patient that POC, Dr. Hunt, would be paged regarding this matter and will call back after speaking with doctor. RN paged Dr. Hunt who immediately called back and a brief summary of situation was given. Dr. Hunt gave instructions for patient to take remainder of dose of Lantus now. Take Lantus later inthe day tomorrow and then begin to get back to taking in am after that. RN then phoned patient backwith Dr. Hunt's instructions. Instructed patient to call back if has any further questions or concerns. Patient verbalizes understanding of all instructions given and denies further needs at this time. See care advice and disposition for guideline. [...] method utilized. Reason for Disposition ? ? Blood glucose > 400 mg/dL (22.2 mmol/L) Protocols used: DIABETES - HIGH BLOOD SUGAR-A- ERCIAL DEVELOPMENT MANAGER documented in this encounter Plan of Treatment Upcoming Encounters Date Type Department Care Team (Late st Contact Info) Description 05/17/2024 2:45 PM COMMERCIAL DEVELOPMENT MANAGER Office Visit [facility] - Endocrinology - [place] [address] [place] [address] Annel Rod MD #[address] [address] documented as of this encounter Visit Diagnoses Not on filedocumented in this encounter Additional Health Concerns Assessment Noted Time PHQ-9 Depression Total Score: 0 09/08/19 19 1:00 PM CDT documented as of this encounter Care Teams Assistant Pressman Relationship Specialty Start Date End Date Justen Gale MD #[address] [address] PCP - General Family Medicine 10/17/17 documented as of this encounter
--- OUTSIDE RECORDS SUMMARY | 2024-04-26 03:01 | XMS_ITS | Encounter Summary ---
Author Organization [facility] Address [address] [place] [address] Phone Care Team Providers Care Environmental Advisor Name Role Phone Justen Gale MD Primary Care Provider Reason for Visit * Reason Onset Date Comments Results 02/19/2020 urine Encounter Details Date Type Department Care Team (Late st Contact Info) Description 02/19/2020 Telephone [facility] [address] [place] [address] Justen Gale MD #[address] [address] Results (urine) Social History Tobacco Use Types Packs/Day Years [...] have Coronavirus / COVID-19? No / Unsure 02/17/2020 10:16 AM CDT documented as of this encounter Miscellaneous Notes * Telephone Encounter - Patricia Alvarado RN - 02/24/2020 1:10 PM CST Patient notified and verbalized understanding. T HELPER * Telephone Encounter - Anastasia Rodriguez RN - 02/20/2020 3:13 PM CDT Left message for patient to call office. * Telephone Encounter - Alicia Moore - 02/19/2020 10:23 AM CDT Called patient to relay results. Phone was answered then disconnected. Unable to relay message. * Telephone Encounter - Alicia Moore - 02/19/2020 10:19 AM CDT ----- Message from Pili Elkins APN, CNP sent at 02/19/2020 7:41 AM CDT ----- Urine culture indicates distal contaminants. No significant growth. I am still waiting on her urgent care records. documented in this encounter Plan of Treatment Upcoming Encounters Date Type Department Care Team (Late st Contact Info) Description 05/17/2024 2:45 PM FIRST HELPER Office Visit [facility] - Endocrinology - [place] #[address] [place] [address] Annel Rod MD #[address] [address] documented as of this encounter Visit Diagnoses Not on filedocumented in this encounter Additional Health Concerns Assessment Noted Time PHQ-9 Depression Total Score: 0 09/08/19 19 1:00 PM CDT documented as of this encounter Care Teams Environmental Advisor Relationship Specialty Start Date End Date Justen Gale MD #2 [place] [id number] PCP - General Family Medicine 10/17/17 documented as of this encounter
--- OUTSIDE RECORDS SUMMARY | 2024-04-26 03:01 | XMS_ITS | Encounter Summary ---
Author Organization [facility] Address [address] [place] [address] Phone Care Team Providers Care U.S. Commissioner Name Role Phone Justen Gale MD Primary Care Provider Encounter Details Date Type Department Care Team (Late st Contact Info) Description 12/27/2019 Transcribe Orders [facility] [address] [place] [address] Pili Elkins APRN, [employer] ASC[employer] CONSULTANT #[address] [address] Obstructive sleep apnea (Primary Dx) [...] have Coronavirus / COVID-19? No / Unsure 12/19/2019 3:09 PM CDT documented as of this encounter Plan of Treatment Upcoming Encounters Date Type Department Care Team (Late st Contact Info) Description 05/17/2024 2:45 PM BARKEEPER Office Visit [facility] - Endocrinology - [place] #2 [place] [phone] Annel Rod MD #2 [facility] [address] [place] [phone] Scheduled Orders Name Type Priority Associated Diagnoses Orde r Schedule POLYSOMNOGRAPHY 4 OR MORE PARAMETERS WITH CPAP Sleep Center Routine Obstructive sleep apnea Expected: 12/27/2019, Expires: 12/26/2020 documented as of this encounter Visit Diagnoses Diagnosis Obstructive sleep apnea- Primary Obstructive sleep apnea (adult) (pediatric) documented in this encounter Additional Health Concerns Assessment Noted Time PHQ-9 Depression Total Score: 0 09/08/19 19 1:00 PM CDT documented as of this encounter Care Teams U.S. Commissioner Relationship Specialty Start Date End Date Justen Glae MD #2 [facility] [address] [place] [address] PCP - General Family Medicine 10/17/17 documented as of this encounter
--- OUTSIDE RECORDS SUMMARY | 2024-04-26 03:01 | XMS_ITS | Encounter Summary ---
Author Organization [facility] Address [address] 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 Khris Arthur at [facility] or other specialist in patient's insurance network for malignant neoplasm of left breast. See below for Karly's current medications, allergies and problem list. Please contact patient for scheduling questions or concerns. CURRENT MEDS: Current Outpatient Medications: amitriptyline (ELAVIL) 10 MG Tablet, Take 10 mg by mouth nightly., Disp: , Rfl: amitriptyline (ELAVIL) 25 MG Tablet, , Disp: , Rfl: atorvastatin (LIPITOR) 20 MG Tablet, Take 1 Tab by mouth daily., Disp: 90 Tab, Rfl: 3 Blood Glucose Monitoring Suppl Device, Diagnosis: Diabetes Type 2 Blood testing frequency: 4 times a day, Disp: 1 Each, Rfl: 0 exemestane (AROMASIN) 25 MG Tablet, Take 25 mg by mouth daily., Disp: , Rfl: gabapentin (NEURONTIN) 300 MG Capsule, Take 1 Cap by mouth 3 times daily. (Patient not taking: Reported on 09/05/2019), Disp: 90 Cap, Rfl: 0 Glucose Blood (ONE TOUCH ULTRA TEST) Strip, Test four times daily., Disp: 400 Strip, Rfl: 3 HYDROcodone-acetaminophen (NORCO) 7.5-325 MG Tablet, TK 1 T PO QID PRN. DO NOT FILL UNTIL 02/13/2019, Disp: , Rfl: 0 Insulin Lispro, 1 Unit Dial, (HUMALOG KWIKPEN) 100 UNIT/ML Solution Pen- injector, INJECT 24 UNITS UNDER THE SKIN AT BREAKFAST, 24 UNITS AT LUNCH, AND 26 UNITS AT DINNER, UP TO 100 UNITS PER DAY DIRECTED, Disp: 30 mL, Rfl: 2 Insulin Pen Needle (PEN NEEDLES 31GX5/16 ) 31G X 8 MM Misc, Use 6 times daily E11.9, Disp: 300 Each, Rfl: 3 LANTUS SOLOSTAR 100 UNIT/ML Solution Pen-injector, INJECT 50 UNITS SUBCUTANEOUSLY EVERY MORNING, Disp: 45 mL, Rfl: 1 lidocaine (LIDODERM) 5 % Patch, PLACE 1 PATCH ONTO THE SKIN D FOR 30 DAYS. REMOVE AND DISCARD PATCH WITHIN 12 HOURS OR UTD BY MD, Disp: , Rfl: 0 lisinopril (PRINIVIL, ZESTRIL) 20 MG Tablet, TAKE 1 TABLET BY MOUTH DAILY, Disp: 90 Tab, Rfl: 2 Misc. Devices Misc, Supply and instructions:, Disp: 1 Each, Rfl: 0 ondansetron (ZOFRAN) 4 MG Tablet, Take 1 Tab by mouth every 8 hours as needed for Nausea - 1st line., Disp: 15 Tab, Rfl: 0 ondansetron (ZOFRAN) 4 MG Tablet, [...] Visit * Reason Onset Date Comments Referral 10/16/2019 Encounter Details Date Type Department Care Team (Late st Contact Info) Description 10/16/2019 Telephone [facility] [address] [address] Justen Gale MD #2 [facility] [address] [place] [address] Referral Social History Tobacco Use Types Packs/Day [...] Telephone Encounter - Marlys Lane RN - 10/16/2019 12:46 PM CDT Ama, from oncology at [facility], calling and stating that patient needs a referral to see Dr. Khris Arthur on 10/21. Would provider be willing to sign referral? Order pended for your review. documented in this encounter Plan of Treatment Upcoming Encounters Date Type Department Care Team (Late st Contact Info) Description 05/17/2024 2:45 PM PROCUREMENT ENGINEER Office Visit [facility] - Endocrinology - [place] #2 [place] [address] Annel Rod MD #2 [facility] [address] [place] [address] Scheduled Referrals Name Type Priority Associated Diagnoses Order Schedule EXTERNAL HEMATOLOGY ONCOLOGY REFERRAL Outpatient Referral Less Than 1 week Malignant neoplasm of midline of female breast, left (HCC) Expected: 10/16/2019, Expires: 10/15/2020 documented as of this encounter Visit Diagnoses Diagnosis Malignant neoplasm of midline of female breast, left (HCC)- Primary documented in this encounter Additional Health Concerns Assessment Noted Time PHQ-9 Depression Total Score: 0 09/08/19 19 1:00 PM CDT documented as of this encounter Care Teams Marshmallow Machine Operator Relationship Specialty Start Date End Date Justen Gale MD #2 [place] [id number] PCP - General Family Medicine 10/17/17 documented as of this encounter
--- OUTSIDE RECORDS SUMMARY | 2024-04-26 03:01 | XMS_ITS | Encounter Summary ---
Author Organization [facility] Address [address] [place] [address] Phone Care Team Providers Care Piece Worker Name Role Phone Justen Gale MD Primary Care Provider [phone] Reason for Visit * Reason Onset Date Comments COVID-19 01/13/2020 Encounter Details Date Type Department Care Team (Late st Contact Info) Description 01/13/2020 Nurse Triage [facility] [address] [place] [address] Justen Gale MD [address] [address] COVID-19 Social History Tobacco Use Types Packs/Day Years [...] have Coronavirus / COVID-19? No / Unsure 01/13/2020 10:18 PM CDT documented as of this encounter Miscellaneous Notes * Telephone Encounter - Larissa Lechuga RN - 01/13/2020 10:36 PM CDT Reason for Disposition ??? MODERATE difficulty breathing (e.g., speaks in phrases, SOB even at rest, pulse 100-120) Protocols used: CORONAVIRUS (COVID-19) DIAGNOSED OR [id number] * Telephone Encounter - Larissa Lechuga RN - 01/13/2020 10:17 PM CDT Images from the original note were not included. Travel Screening Question Response In the last month, have you been in contact with someone who was confirmed or suspected to have Coronavirus / COVID-19? No / Unsure Have you had a COVID-19 viral test in the last 14 days? Yes - Negative result Do you have any of the following new or worsening symptoms? Cough;Shortness of breath Have you traveled internationally in the last month? No Travel History Travel since 12/13/19 No documented travel since 12/13/19 COVID-19 Testing Priority for Karly Sykesrangel: 2 Nurse Triage SITUATION: cough, shaky, shortness breath BACKGROUND: patient stated she had an EGD 4 days ago and has had a cough since. Patient stated she will have intermittent shaking with her upper body and feels short of breath. ASSESSMENT: Symptom Description / Location: patient stated her blood sugar is 269. Patient denies any severe difficulty breathing. Patient denies any difficulty to awaken or acting confused. Patient denies that her lips or face are blue or carney in color. Patient stated she can stand up and walk around. Patientdenies any severe or constant chest pain or pressure. Patient stated she is moderately difficulty breathing. Pain (0-10): abdominal pain 4/10 Temp: patient denies Treatment / Response: patient denies RECOMMENDATION: Advised patient to be seen in the ED. Patient agreed and verbalized understanding. Patient stated she will go to [facility] ED. Advised patient to call back with any questions or worsening symptoms. LARISSA LECHUGA RN documented in this encounter Plan of Treatment Upcoming Encounters Date Type Department Care Team (Late st Contact Info) Description 05/17/2024 2:45 PM SAW STRAIGHTENER Office Visit [facility] - Endocrinology - [place] [address] [place] [id number] Annel Rod MD #2 [facility] [address] [place] [address] documented as of this encounter Visit Diagnoses Not on filedocumented in this encounter Additional Health Concerns Assessment Noted Time PHQ-9 Depression Total Score: 0 09/08/19 19 1:00 PM CDT documented as of this encounter Care Teams Piece Worker Relationship Specialty Start Date End Date Justen Gale MD [facility] [address] [place] [address] PCP - General Family Medicine 10/17/17 documented as of this encounter
--- OUTSIDE RECORDS SUMMARY | 2024-04-26 03:01 | XMS_ITS | Encounter Summary ---
Author Organization [facility] [employer] [facility] [employer] [facility] [employer] Care Team Providers Care Call Center Receptionist Name Role Phone Justen Gale MD Primary Care Provider [phone] Encounter Details Date Type Department Care Team (Latest Contact Info) Description 12/09/2019 Travel Social History Tobacco Use Types Packs/Day [...] have Coronavirus / COVID-19? No / Unsure 12/09/2019 1:59 PM CDT documented as of this encounter Plan of Treatment Upcoming Encounters Date Type Department Care Team (Late st Contact Info) Description 05/17/2024 2:45 PM SUPPORT DBA Office Visit [facility] - Endocr[facility]ology - [place] [address] [place] [address] Annel Rod MD [address] [address] [address] documented as of this encounter Visit Diagnoses Not on filedocumented in this encounter Additional Health Concerns Assessment Noted Time PHQ-9 Depression Total Score: 0 09/08/19 19 1:00 PM CDT documented as of this encounter Care Teams Call Center Receptionist Relationship Specialty Start Date End Date Justen Gale MD [address] [place] [address] PCP - General Family Medicine 10/17/17 documented as of this encounter
--- OUTSIDE RECORDS SUMMARY | 2024-04-26 03:01 | XMS_ITS | Encounter Summary ---
Author Organization [facility] [employer] Care Team Providers Care Meat Grading Machine Operator Name Role Phone Justen Gale MD Primary Care Provider [phone] Encounter Details Date Type Department Care Team (Latest Contact Info) Description 12/19/2019 Travel Social History Tobacco Use Types Packs/Day [...] st Contact Info) Description 05/17/2024 2:45 PM TEXTILE KNITTER Office Visit [facility] - Endocrinology - [place] [address] [place] [address] Annel Rod MD [address] [address] documented as of this encounter Visit Diagnoses Not on filedocumented in this encounter Additional Health Concerns Assessment Noted Time PHQ-9 Depression Total Score: 0 09/08/19 19 1:00 PM CDT documented as of this encounter Care Teams Meat Grading Machine Operator Relationship Specialty Start Date End Date Justen Gale MD [address] [place] [address] PCP - General Family Medicine 10/17/17 documented as of this encounter
--- OUTSIDE RECORDS SUMMARY | 2024-04-26 03:01 | XMS_ITS | Encounter Summary ---
Author Organization [facility] Address [address] [place] [address] Phone Care Team Providers Care Greenstone Polisher Operator Name Role Phone Justen Gale MD Primary Care Provider [phone] Reason for Visit * Reason Comments Follow-up chronic UTI Post-Hospital Follow-up Ajay for GI issues Encounter Details Date Type Department Care Team (Late st Contact Info) Description 02/17/2020 10:30 AM CDT Office Visit [facility] - Family Medicine [facility] [address] [place] [phone] Pili Elkins APRN, SENIOR ENVIRONMENTAL CONSULTANT [address] [phone] Urinary frequency (Primary Dx); Gastroesophageal reflux disease without esophagitis; Candidiasis of mouth Discharge Disposition: Discharged to home or Selfcare [...] Sign Reading Time Taken Comments Blood Pressure 130/82 02/17/2020 10:21 AM CDT Pulse 77 02/17/2020 10:21 AM CDT Temperature 35.9 ??C (96.6 ??F) 02/17/2020 1 0:21 AM CDT Respiratory Rate 16 02/17/2020 10:2 1 AM CDT Oxygen Saturation 99% 02/17/2020 10: 21 AM CDT Inhaled Oxygen Concentration - - Weight 137.3 kg (302 lb 11.2 oz) 2019 10:21 AM CDT Height 154.9 cm (5' 1 ) 02/17/2020 10:2 1 AM CDT Body Mass Index 57.19 02/17/2020 10:21 AM CDT documented in this encounter Patient Instructions * Patient Instructions* Pili Elkins, ANA LUISA, SENIOR ENVIRONMENTAL CONSULTANT - 02/17/2020 10:30 AM CDT Images from the original note were not included. Gastroparesis Gastroparesis means that food and fluids move too slowly out of the stomach into the duodenum. Gastroparesis happens when the stomach takes longer than normal to empty of food. It's also called delayed gastric emptying. It's due to a problem with motility. This is the movement of the muscles in the digestive tract. For many people, gastroparesis is a lifelong health problem. But treatment can help ease symptoms and prevent complications. Read on to learn more about gastroparesis and how it can be managed. How gastroparesis develops With normal motility, signals from nerves tell the stomach muscles when to contract. These muscles move food from the stomach into the duodenum (the first part of the small bowel). With gastroparesis, the nerves or muscles are damaged. This causes motility to slow down or stop. As a result, food can't move from the stomach in the right way. This delayed emptying can cause nausea, vomiting, and other symptoms. Malnutrition can result. Bezoars (hardened lumps of food) can form in the stomach and cause other problems as well. Causes of gastroparesis Gastroparesis can be caused by any of these: ?? Diabetes ?? Surgery of any of the digestive organs, such as the stomach and bowels ?? Certain medicines, such as strong pain medicines (narcotics) ?? Certain health problems, such as systemic scleroderma, Parkinson disease, and thyroid disease ?? After a viral illness In many cases, the cause of gastroparesis can't be found. Symptoms of gastroparesis These can include: ?? Nausea and vomiting ?? Feeling full quickly when eating ?? Belly pain ?? Heartburn ?? Belly bloating ?? Weight loss ?? Loss of appetite ?? High and low blood sugar levels (in people with??diabetes) Diagnosing gastroparesis Your healthcare provider will ask about your symptoms and health history. You???ll also be examined. In addition, blood tests and X-rays are often done to check your health and rule out other problems. To confirm the problem, you may need other tests as well, such as: ?? Upper endoscopy.??This is done??to see inside the stomach and duodenum. For the test, an endoscope is used. This is a thin, flexible tube with a tiny camera on the end. It???s inserted through themouth and down into the stomach and duodenum. ?? Upper gastrointestinal (GI) series.??This is done??to take X-rays of the upper GI tract from themouth to the small bowel. For the test, a substance called barium is used. The barium coats the upper GI tract so that it will show up clearly on X-rays. ?? Radioisotope gastric-emptying scan.??This is done to measure how quickly food leaves the stomach. For the test, a meal containing a harmless radioactive substance (tracer) is eaten. Then scans of the stomach are done. The tracer shows up clearly on the scans. It shows the movement of the food through the stomach. ?? Gastric (antroduodenal) manometry. This test gives pressure measurements of the stomach and small intestine. It checks how the contractions are working. ?? Wireless capsule study. This test involves swallowing a wireless capsule. The capsule measures how well the stomach empties and how fast food and fluids move through your intestines. You will passthe capsule out of your body with a bowel movement. ?? Gastric emptying breath test (GEBT). This test checks stomach emptying. It measures how much carbon dioxide you breathe out over several hours after eating food. ?? Scintigraphic gastric accommodation. This test measures your stomach contents before and after ameal. It also checks how well your stomach relaxes after you eat food. Treating gastroparesis The goal of treatment is to help you manage your condition. Treatment may include one or more of these: ?? Dietary changes.??You may need to make changes to your eating habits and daily diet. For instance, your healthcare provider may tell you to eat small meals throughout the day. Doing this can keep you from feeling full too quickly. You may be placed on a liquid or ???soft?? diet. This means you???ll eat liquid foods or foods that are mashed or put through a store sales leader. Plus, you may need to stay away from foods high in fats and fiber. These can slow digestion. For more help with your diet, yourhealthcare provider can refer you to a dietitian. In severe cases, you may need a feeding tube. This sends liquid food or medicine directly to your small bowel, bypassing the stomach. ?? Treating diabetes. If you have diabetes, it is important to control your blood sugar. High sugarlevels worsen gastroparesis.? Medicines.??These can help manage symptoms, such as nausea and vomiting. They can also improve motility. Each medicine has specific risks and side effects. Your healthcare provider can tell you more about any medicine that is prescribed for you. Also, if you are on narcotic pain relievers and certain other medicines, your healthcare provider may also advise stopping these if they are contributing to your gastroparesis. ?? Surgery.??You may need to have a tube surgically put into the stomach. The tube removes excess air and fluid. This can ease severe symptoms of nausea and vomiting. In rare cases, other surgery maybe needed on the stomach or small bowel. This is to make a new passageway for food to be emptied from the stomach. ?? Gastric electrical stimulation. This treatment is done less often and may not be available. Yourhealthcare provider can tell you more about this treatment if it is a choice for you. Diabetes and gastroparesis If you have diabetes, gastroparesis can make it harder to manage your blood sugar level. You???ll need to take extra steps in your treatment to prevent complications. Work with your healthcare provider to learn what you can do to protect your health. For more information, contact the [place] [employer],??www.diabetes.org. Long-term concerns?? With treatment, most people can manage their symptoms and keep up their usual routines. If your symptoms are moderate to severe, you may need to see your healthcare provider more often for checkups. Also, other treatments will likely be needed. [employer] last reviewed this educational content on 09/22/2018 ?? [id number] [employer]. [address] [place] [address], [place] [address]. All rights reserved. This information is not intended as a substitute for professional medical care. Always follow your healthcare professional's instructions. documented in this encounter Progress Notes * Kerry Selby, THAW SHED HEATER TENDER - 02/17/2020 10:30 AM CDT Karly Montero Shelli, 64 y.o., female is here for Follow-up (chronic UTI ) and Post-Hospital Follow-up([facility] for GI issues ) Medication Refills: Patient reports/denies need for [...] Smith MD Insulin Lispro, 1 Unit Dial, (HUMALOG KWIKPEN) 100 UNIT/ML Solution Pen-injector INJECT 26 UNITS BEFORE EACH MEAL. ISF OF 1:40>140 MG/DL, UP TO 120 UNITS PER DAY DIRECTED 11/18/19 Yes Annel Rod MD Insulin Pen Needle (B-D ULTRAFINE III SHORT PEN) 31G X 8 MM Misc USE SIX TIMES DAILY DIRECTED 02/07/20 Yes Jsuten Gale MD LANTUS SOLOSTAR 100 UNIT/ML Solution Pen-injector INJECT 50 UNITS SUBCUTANEOUSLY EVERY MORNING 09/11/19 Yes Annel Rod MD lisinopril (PRINIVIL, ZESTRIL) 20 MG Tablet TAKE 1 TABLET BY MOUTH DAILY 09/30/19 Yes Justen Gale MD Misc. Devices Misc Supply and instructions: 02/25/19 Yes Justen Gale MD ondansetron (ZOFRAN) 4 MG Tablet TAKE 1 TABLET BY MOUTH EVERY 8 HOURS NEEDED FOR NAUSEA 08/07/19 Justen Gale MD ONETOUCH DELICA LANCETS 33G [...] TAKE 1 TABLET BY MOUTH EVERY NIGHT 09/18/18 Yes Justen Gale MD There are no [...] ??? Pneumococcal Immunization (0-64 years) (1 of - PPSV23) 1962 ??? Pap Smear 1977 ??? Mammogram 2006 ??? Zoster Immunization (1 of 2) 2006 ??? Influenza Immunization (1) 12/24/2019 Orders Pended: no The following BPA's have been addressed with the patient today: Flu, Mammogram and Pap * Pili Elkins APN, NETTA - 02/17/2020 10:30 AM CDT Chief Complaint: Chief Complaint Patient presents with ??? Follow-up chronic UTI ??? Post-Hospital Follow-up [place] for GI issues Subjective: Ms. Karly Marques is a 64 y.o. female here today for above. Patient was seen [facility] on January 15 with complaints of abdominal pain and nausea vomiting. Patient had had a previous colonoscopy in in disc copy and was taking Flagyl for possible infection when she present to the emergency department. Patient was admitted for 3 days in reports she has been feeling much better. She reports she had to stop the pantoprazole due to her restless legsyndrome and she stopped this several weeks ago. She reports that she was diagnosed with gastroparesis. Patient reports she started having issues again in the last week with feeling flushed, nausea, cramping that is relieved by having a bowel movement. Patient follows a diabetic diet but has not been following a soft food diet. Patient also reports she has been having issues with her tongue. She reports it feels sore and swollen and that there are cats in her tongue. She reports that is worse at night and is aggravated by her CPAP. She has not noticed it gets worse with food but has noted a decrease taste with her food. Patient would also like to see a urologist due to recurrent UTIs. She reports that she goes to urgent care several times a year and has UTIs. Patient reports that she has symptoms including frequency, urgency, fatigue, pressure in her abdomen, and nocturia. Reports frequency currently. No other symptoms. ROS: Review of Systems Constitutional: Positive for appetite change. Negative for activity change, chills, diaphoresis, fatigue and fever. HENT: Negative for congestion, dental problem, drooling, ear discharge, ear pain, facial swelling, hearing loss, mouth sores, nosebleeds, postnasal drip, rhinorrhea, sinus pressure, sinus pain, sneezing, sore throat, tinnitus, trouble swallowing and voice change. Tongue pain Respiratory: Negative for cough, shortness of breath and wheezing. Cardiovascular: Negative for chest pain and palpitations. Gastrointestinal: Positive for abdominal distention and nausea. Negative for abdominal pain, anal bleeding, blood in stool, constipation, diarrhea, rectal pain and vomiting. Genitourinary: Positive for dysuria, frequency and urgency. Negative for decreased urine volume, difficulty urinating, enuresis, flank pain, genital sores, hematuria, menstrual problem, vaginal bleeding, vaginal discharge and vaginal pain. VITAL SIGNS: BP Readings from Last 3 Encounters: 02/17/20 130/82 12/19/19 140/80 12/03/19 128/82 Wt Readings from Last 3 Encounters: 02/17/20 302 lb 11.2 oz (137.3 kg) 12/19/19 296 lb (134.3 kg) 12/03/19 302 lb (137 kg) Vitals: 02/17/20 1021 BP: 130/82 Pulse: 77 Resp: 16 Temp: 96.6 ??F (35.9 ??C) TempSrc: Temporal SpO2: 99% Weight: 302 lb 11.2 oz (137.3 kg) Height: 5' 1 (1.549 m) Body mass index is 57.19 kg/m??. PHYSICAL EXAM: Physical Exam Vitals signs and nursing note reviewed. Constitutional: General: She is not in acute distress. Appearance: Normal appearance. She is well-developed. She is obese. She is not diaphoretic. HENT: Head: Normocephalic and atraumatic. Right Ear: External ear normal. Left Ear: External ear normal. Nose: Nose normal. Mouth/Throat: Mouth: Mucous membranes are moist. Pharynx: Oropharynx is clear. No oropharyngeal exudate or posterior oropharyngeal erythema. Comments: Thick white discharge to tongue that is not able to be scraped off Eyes: Conjunctiva/sclera: Conjunctivae normal. Pupils: Pupils are equal, round, and reactive to light. Neck: Musculoskeletal: Normal range of motion. Trachea: No tracheal deviation. Cardiovascular: Rate and Rhythm: Normal rate and regular rhythm. Pulses: Normal pulses. Heart sounds: Normal heart sounds. No murmur. No friction rub. No gallop. Pulmonary: Effort: Pulmonary effort is normal. No respiratory distress. Breath sounds: Normal breath sounds. No stridor. No wheezing, rhonchi or rales. Abdominal: General: Bowel sounds are normal. There is distension. Palpations: Abdomen is soft. There is no mass. Tenderness: There is no abdominal tenderness. There is no guarding or rebound. Hernia: No hernia is present. Musculoskeletal: Right lower leg: No edema. Left lower leg: No edema. Skin: General: Skin is warm and dry. Capillary Refill: Capillary refill takes less than 2 seconds. Neurological: General: No focal deficit present. Mental Status: She is alert and oriented to person, place, and time. Mental status is at baseline. Cranial Nerves: No cranial nerve deficit. Labs/Studies Reviewed: Lab Results Component Value Date WBC 9.29 07/26/2019 HEMOGLOBIN 12.4 07/26/2019 HEMATOCRIT 40.9 07/26/2019 PLATELETCNT 313 07/26/2019 MCV 94.2 07/26/2019 Lab Results Component Value Date SODIUM 138 07/26/2019 POTASSIUM 4.6 07/26/2019 CHLORIDE 100 07/26/2019 CO2VEN 27 07/26/2019 ANIONGAP 15.6 07/26/2019 GLUCOSE 133 (H) 07/26/2019 BUN 18 07/26/2019 CREATININE 0.74 07/26/2019 BCRATIO8 24 (H) 07/26/2019 TOTALPROTEIN 8.2 07/26/2019 ALBUMIN 3.8 07/26/2019 CALCIUM 9.7 07/26/2019 TBIL 0.6 07/26/2019 SGOTAST 18 07/26/2019 SGPTALT 20 07/26/2019 ALKALINEPHO 88 07/26/2019 GFRNA >60 07/26/2019 GFRA >60 07/26/2019 Lab Results Component Value Date TSH 3.960 07/26/2019 Lab Results Component Value Date HGBA1C 8.1 (H) 04/26/2019 Lab Results Component Value Date CHOLESTEROL 216 (H) 04/23/2019 TRIGLYCRIDES 154 (H) 04/23/2019 HDLCHOLESTE 50.9 04/23/2019 LDL 134 (H) 04/23/2019 Assessment/Plan: Diagnoses and all orders for this visit: Urinary frequency - POCT UA AUTOMATED W/O MICRO - CULTURE, URINE; Future Gastroesophageal reflux disease without esophagitis - famotidine (PEPCID) 20 MG Tablet; Take 1 Tab by mouth 2 times daily. Candidiasis of mouth - clotrimazole (MYCELEX) 10 MG Rozina; Take 1 Rozina by mouth 5 times daily for 7 days. Other orders - Cancel: EXTERNAL GYNECOLOGY REFERRAL; Future Will collect urine specimen today and send for urine culture. Discussed with patient that there is no record of her having multiple UTIs. States she normally goes to Urgent Care will get those records 1st. Patient unable to tolerate pantoprazole due to restless leg. Will start her on Pepcid to see if this helps. Patient noted to possible candidiasis infection of her mouth will start her on clotrimazole for 7 days. Patient will schedule well-woman visit in the future. Patient return if symptoms fail to improve. Also discussed with her that her GI symptoms do not improve she needs to reach out to her echo tech. FOLLOWUP: Follow-up Information Return if symptoms worsen or fail to improve. LOS Today Past medical, surgical, social and family history has been reviewed and updated as necessary. Medications and allergies has been reviewed and updated. I discussed all new medications and potential side effects or risks associated with them. Patient is to contact our office with any concerns. Patient instructions and educational materials were given to the patient. Patient (or patient employee relations representative) demonstrates verbal understanding of instructions given. [...] our referral team or the referring physician. * Pili Elkins APN, CNP - 02/17/2020 10:30 AM CDT Urine culture indicates distal contaminants. No significant growth. I am still waiting on her urgent care records. documented in this encounter Plan of Treatment Upcoming Encounters Date Type Department Care Team (Late st Contact Info) Description 05/17/2024 2:45 PM TIME STUDY OBSERVER Office Visit [facility] - Endocrinology - [place] [address] [place] [phone] Annel Rod MD [address] [phone] documented as of this encounter Procedures Procedure Name Priority Date/Time Associated Diagnosis Comments CULTURE, URINE Routine 02/17/2020 11:41 AM CDT Urinary frequency POCT UA AUTOMATED W/O MICRO Routine 02/17/2020 11:18 AM CDT Urinary frequency documented in this encounter Results * CULTURE, URINE (02/17/2020 11:41 AM CDT) CULTURE RESULTS GROWTH OF 1 OR MORE ORGANISMS, ALL ARE LESS THAN 10,000 CFU/ML . SUGGESTIVE OF DISTAL URETHRAL CONTAMINANTS. 02/18/2020 8:30 PM CDT [facility] Culture URINE SPECIMEN COLLECTION, CLEAN CATCH / Unknown Non-Phlebotomy Collection / Unknown 02/17/2020 11:41 AM CDT 02/17/2020 11:41 AM CDT us Pili Elkins APRN, SENIOR ENVIRONMENTAL CONSULTANT MICROBIOLOGY - GENER AL ORDERABLES Final Result [facility] [address] [place] [address], * (ABNORMAL) POCT UA AUTOMATED W/O MICRO (02/17/2020 11:18 AM CDT) SPECIFIC GRAVITY 1.015 1.003 - 1.030 URINE PH 5.0 5.0 - 9.0 UR, LEUKOCYTES Negative Negative Emerson/uL UR, NITRITE Negative Negative UR, PROTEIN Negative Negative mg/dL UR, GLUCOSE Normal Normal mg/dL UR, KETONE Negative Negative mg/dL UR, UROBILINOGEN Normal Normal mg/dL UR, BILIRUBIN Negative Negative mg/dL UR. BLOOD 1+ (50 Minor/uL)(A) Negative URINALYSIS COLOR Yellow URINALYSIS CLARITY Cloudy Urine 02/17/2020 11:1 8 AM CDT Pili Elkins SCREEN PRINTING CLOTH SPREADER, SENIOR ENVIRONMENTAL CONSULTANT POINT OF CARE TESTIN G (MANUAL) Final Result documented in this encounter Visit Diagnoses Diagnosis Urinary frequency- Primary Gastroesophageal reflux disease without esophagitis Esophageal reflux Candidiasis of mouth documented in this encounter Additional Health Concerns Assessment Noted Time PHQ-9 Depression Total Score: 0 09/08/19 19 1:00 PM CDT documented as of this encounter Care Teams Greenstone Polisher Operator Relationship Specialty Start Date End Date Justen Gale MD [address] [place] [id number] PCP - General Family Medicine 10/17/17 documented as of this encounter
--- OUTSIDE RECORDS SUMMARY | 2024-04-26 03:01 | XMS_ITS | Encounter Summary ---
Author Organization [facility] [employer] Care Team Providers Care Silverware Supervisor Name Role Phone Justen Gale MD Primary Care Provider [phone] Encounter Details Date Type Department Care Team (Latest Contact Info) Description 12/02/2019 Travel Social History Tobacco Use Types Packs/Day [...] have Coronavirus / COVID-19? No / Unsure 12/02/2019 11:09 AM CDT documented as of this encounter Plan of Treatment Upcoming Encounters Date Type Department Care Team (Late st Contact Info) Description 05/17/2024 2:45 PM DISTRIBUTION SYSTEM OPERATOR Office Visit [facility] - Endocrinology - [place] [address] [place] [address] Annel Rod MD [address] [phone] documented as of this encounter Visit Diagnoses Not on filedocumented in this encounter Additional Health Concerns Assessment Noted Time PHQ-9 Depression Total Score: 0 09/08/19 19 1:00 PM CDT documented as of this encounter Care Teams Silverware Supervisor Relationship Specialty Start Date End Date Justen Gale MD [address] [place] [address] PCP - General Family Medicine 10/17/17 documented as of this encounter
--- OUTSIDE RECORDS SUMMARY | 2024-04-26 03:01 | XMS_ITS | Encounter Summary ---
Author Organization [facility] Address [address] [place] [address] Phone Care Team Providers Care Safety Leader Name Role Phone Justen Gale MD Primary Care Provider [phone] Reason for Visit * Reason Onset Date Comments Form Completion 12/03/2019 Encounter Details Date Type Department Care Team (Late st Contact Info) Description 12/03/2019 Telephone [facility] [address] [place] [address] Justen Gale MD #[address] [address] Form Completion Social History Tobacco Use Types [...] Telephone Encounter - Elma Sykes RN - 12/03/2019 3:04 PM CDT Pt brought in paperwork for disability licence plate/placard. Completed and signed by Pili Elkins, mailed to [facility]. documented in this encounter Plan of Treatment Upcoming Encounters Date Type Department Care Team (Late st Contact Info) Description 05/17/2024 2:45 PM STOCKKEEPER Office Visit [facility] - Endocrinology - [place] [address] [place] [phone] Annel Rod MD #[address] [facility] [address] [place] [phone] documented as of this encounter Visit Diagnoses Not on filedocumented in this encounter Additional Health Concerns Assessment Noted Time PHQ-9 Depression Total Score: 0 09/08/19 19 1:00 PM CDT documented as of this encounter Care Teams Safety Leader Relationship Specialty Start Date End Date Justen Gale MD #2 [facility] [address] [place] [address] PCP - General Family Medicine 10/17/17 documented as of this encounter
--- OUTSIDE RECORDS SUMMARY | 2024-04-26 03:01 | XMS_ITS | Encounter Summary ---
Author Organization [facility] Address [address] [place] [address] Phone Care Team Providers Care Biology Teacher Name Role Phone Justen Gale MD Primary Care Provider [phone] Reason for Visit * Reason Onset Date Comments Urinary Frequency 01/24/2020 Encounter Details Date Type Department Care Team (Late st Contact Info) Description 01/24/2020 Nurse Triage [facility] [address] [place] [address] Justen Gale MD #[address] [address] Urinary Frequency Social History Tobacco Use Types [...] have Coronavirus / COVID-19? No / Unsure 01/24/2020 9:29 AM CDT documented as of this encounter Miscellaneous Notes * Telephone Encounter - Katie Mccall RN - 01/24/2020 9:24 AM CDT Images from the original note were not included. SITUATION: Patient call in BACKGROUND: Started on mon01/22/20. Patient says that she gets uti's frequently and thinks this is what she has. ASSESSMENT: Symptom Description / Location: urinary frequency/ urgency, bladder pressure, she does have burningwith urination, denies blood in urine, denies low back pain, Pain (0-10): 07/01 Temp: afebrile Treatment / Response: has not taken anything RECOMMENDATION: See care advice and disposition for Guideline First positive answer recorded, all responses to prior questions were negative. If symptoms increase, change or if new symptoms develop, call your HCP or call back. Recommendations were based on caller information and is not a diagnosis. Verified and reviewed all triage information with caller. Travel Screening Question Response In the last month, have you been in contact with someone who was confirmed or suspected to have Coronavirus / COVID-19? No / Unsure Have you had a COVID-19 viral test in the last 14 days? No Do you have any of the following new or worsening symptoms? None of these Have you traveled internationally in the last month? No Travel History Travel since 12/25/19 No documented travel since 12/25/19 COVID-19 Testing Priority for Karly Marques: 4 At this time, based on our discussion we would recommend following the CDC and [facility] department of health guidelines, which include: ?? practicing social distancing (staying 6 feet away from others) ?? washing your hands often ?? keeping yourself hydrated ?? staying home as much as possible If you would like to be tested we would recommend that you complete a web search and review the criteria for testing at the community based sites near your location. If you do develop any symptoms please call us back. KATIE MCCALL RN Patient Is not hcw/telegraph repeater mechanic. Reason for Disposition ? ? > 2 UTIs in last year Protocols used: URINATION PAIN - FEMALE-A-[place] Advised to use hand regulator tester, social distance and wear a face mask. Appointment scheduled today at 1130 with yue. Advised to call back or go to PC/ED with worsening symptoms. Patient/parent/caregiver notified and verbalizes understanding. Patient/parent/caregiverwill call with further questions or concerns. Home cares given in the mean time documented in this encounter Plan of Treatment Upcoming Encounters Date Type Department Care Team (Late st Contact Info) Description 05/17/2024 2:45 PM ELEVATOR CONSTRUCTOR Office Visit [facility] - Endocrinology [facility] #[address] [place] [address] Annel Rod MD #2 [facility] [address] [place] [address] documented as of this encounter Visit Diagnoses Not on filedocumented in this encounter Additional Health Concerns Assessment Noted Time PHQ-9 Depression Total Score: 0 09/08/19 19 1:00 PM CDT documented as of this encounter Care Teams Biology Teacher Relationship Specialty Start Date End Date Justen Gale MD #2 [facility] [address] [place] [address] PCP - General Family Medicine 10/17/17 documented as of this encounter
--- OUTSIDE RECORDS SUMMARY | 2024-04-26 03:01 | XMS_ITS | Encounter Summary ---
Author Organization [facility] Address [address] [place] [address] Phone Care Team Providers Care Collar Folder Operator Name Role Phone Justen Gale MD Primary Care Provider [phone] Reason for Visit * Reason Comments Nausea Encounter Details Date Type Department Care Team (Late st Contact Info) Description 11/05/2019 4:45 PM CDT Telemedicine [facility] - Family Medicine [facility] #2 [place] [phone] Justen Gale MD #[address] [address] Nausea (Primary Dx) Social History Tobacco Use Types [...] suspected to have Coronavirus / COVID-19? Yes 10/26/2019 2:03 PM CDT documented as of this encounter Progress Notes * Justen Gale MD - 11/05/2019 4:45 PM CDT Patient was assessed via telephone for a duration of 13 minutes. Patient verbally consented for this service to be performed and billed. HPI: Karly Marques is a 64 y.o. female evaluated today for nausea [phone] Feels tired. Fatigue worse at night. At times sugars have been low Has constant nausea. Worse after meal. At times has sob. At times pain between shoulder blades. Pain woke her up a few times urine sleep appetitie not as good She says gets hot flashes at times Feels like dying at times Feels like has flu at times Heart feels like pounding out of chest. All symptoms for about ten days. No new meds Daughter caught covid and was under quarentee. Yesterday tested neg for covid though No med changes bs drops at times--lowest 68. Symptoms no better or worse. Symptoms come and go. Gets hot flashes at times. Duration 5-30 minutes Nothing triggers then. The various symptoms occur at different times. Current Outpatient Medications: ??? amitriptyline (ELAVIL) 10 MG Tablet ??? amitriptyline (ELAVIL) 25 MG Tablet ??? atorvastatin (LIPITOR) 20 MG Tablet ??? Blood Glucose Monitoring Suppl Device ??? exemestane (AROMASIN) 25 MG Tablet ??? gabapentin (NEURONTIN) 300 MG Capsule ??? Glucose Blood (ONE TOUCH ULTRA TEST) Strip ??? HYDROcodone-acetaminophen (NORCO) 7.5-325 MG Tablet ??? Insulin Lispro, 1 Unit Dial, (HUMALOG KWIKPEN) 100 UNIT/ML Solution Pen-injector ??? Insulin Pen Needle (PEN NEEDLES 31GX5/16 ) 31G X 8 MM Misc ??? LANTUS SOLOSTAR 100 UNIT/ML Solution Pen-injector ??? lidocaine (LIDODERM) 5 % Patch ??? lisinopril (PRINIVIL, ZESTRIL) 20 MG Tablet ??? Misc. Devices Misc ??? ondansetron (ZOFRAN) 4 MG Tablet ??? ondansetron (ZOFRAN) 4 MG Tablet ??? ONETOUCH DELICA LANCETS 33G Misc ??? oxybutynin (DITROPAN) 5 MG Tablet ??? Polyethylene Glycol 3350 (MIRALAX PO) ??? rivaroxaban (XARELTO) 20 MG Tablet ??? rOPINIROLE (REQUIP) 5 MG Tablet The past medical, surgical, family and social histories, and allergies were reviewed and updated asneeded. ROS: All 14 systems reviewed and negative except as mentioned in the HPI. Plan: No diagnosis found. Nausea: Has a variety of symptoms. Urged her to make ov to help clarify her issues. Maybe have her come in so can do a physical exam, maybe get labs and clarify what is going on. Nausea seems like a chronic issue. Urged her to go to ed if acutely worse. Follow Up: Karly was asked to follow up with Justen Gale MD in 4 month(s). The After Visit Summary is printed and will be mailed to the patient. documented in this encounter Plan of Treatment Upcoming Encounters Date Type Department Care Team (Late st Contact Info) Description 05/17/2024 2:45 PM PRODUCTION TEAM MANAGER Office Visit [facility] - Endocrinology - [place] #2 [place] [address] Annel Rod MD #2 [facility] [address] [place] [address] documented as of this encounter Visit Diagnoses Diagnosis Nausea- Primary Nausea alone documented in this encounter Additional Health Concerns Assessment Noted Time PHQ-9 Depression Total Score: 0 09/08/19 19 1:00 PM CDT documented as of this encounter Care Teams Collar Folder Operator Relationship Specialty Start Date End Date Justen Gale MD #2 [facility] [address] [place] [address] PCP - General Family Medicine 10/17/17 documented as of this encounter
--- OUTSIDE RECORDS SUMMARY | 2024-04-26 03:01 | XMS_ITS | Encounter Summary ---
Author Organization [facility] [employer] Care Team Providers Care Bartenders Name Role Phone Justen Gale MD Primary Care Provider Encounter Details Date Type Department Care Team (Latest Contact Info) Description 10/26/2019 Travel Social History Tobacco Use Types Packs/Day [...] 05/17/2024 2:45 PM DYNAMITE RECLAIMER Office Visit [facility] - Endocrinology - [place] [address] [place] [phone] Annel Rod MD #[address] [phone] documented as of this encounter Visit Diagnoses Not on filedocumented in this encounter Additional Health Concerns Assessment Noted Time PHQ-9 Depression Total Score: 0 09/08/19 19 1:00 PM CDT documented as of this encounter Care Teams Bartenders Relationship Specialty Start Date End Date Justen Gale MD #2 [place] [address] PCP - General Family Medicine 10/17/17 documented as of this encounter
--- OUTSIDE RECORDS SUMMARY | 2024-04-26 03:01 | XMS_ITS | Encounter Summary ---
Author Organization [facility] [employer] Care Team Providers Care Banking Analyst Name Role Phone Justen Glae MD Primary Care Provider [phone] Encounter Details Date Type Department Care Team (Latest Contact Info) Description 01/13/2020 Travel Social History Tobacco Use Types Packs/Day [...] st Contact Info) Description 05/17/2024 2:45 PM ACCESS SERVICES ASSISTANT Office Visit [facility] - Endocrinology - [place] [address] [place] [address] Annel Rod MD [address] [address] documented as of this encounter Visit Diagnoses Not on filedocumented in this encounter Additional Health Concerns Assessment Noted Time PHQ-9 Depression Total Score: 0 09/08/19 19 1:00 PM CDT documented as of this encounter Care Teams Banking Analyst Relationship Specialty Start Date End Date Justen Gale MD #2 [place] [address] PCP - General Family Medicine 10/17/17 documented as of this encounter
--- OUTSIDE RECORDS SUMMARY | 2024-04-26 03:01 | XMS_ITS | Encounter Summary ---
Author Organization [facility] Address [address] [place] [address] Phone Care Team Providers Care Assembler Show Motor Name Role Phone Justen Gale MD Primary Care Provider [phone] Encounter Details Date Type Department Care Team (Late st Contact Info) Description 12/27/2019 Telephone [facility] - Gastroenterology - [place] #2 [place] [address] Genaro Jensen, DO [address] [address] Social History Tobacco Use Types [...] encounter Miscellaneous Notes * Telephone Encounter - Ricarda Ba - 12/27/2019 12:24 PM CDT Colonoscopy prep and Ajay surgery form documented in this encounter Plan of Treatment Upcoming Encounters Date Type Department Care Team (Late st Contact Info) Description 05/17/2024 2:45 PM MANUFACTURING MECHANIC Office Visit [facility] - Endocrinology - [place] #[address] [place] [address] Annel Rod MD #2 [facility] [address] [place] [address] documented as of this encounter Visit Diagnoses Not on filedocumented in this encounter Additional Health Concerns Assessment Noted Time PHQ-9 Depression Total Score: 0 09/08/19 19 1:00 PM CDT documented as of this encounter Care Teams Assembler Show Motor Relationship Specialty Start Date End Date Justen Gale MD #2 [facility] [address] [place] [address] PCP - General Family Medicine 10/17/17 documented as of this encounter
--- OUTSIDE RECORDS SUMMARY | 2024-04-26 03:01 | XMS_ITS | Encounter Summary ---
Author Organization [facility] [employer] Care Team Providers Care Envelope Addresser Name Role Phone Justen Gale MD Primary Care Provider [phone] Encounter Details Date Type Department Care Team (Latest Contact Info) Description 11/18/2019 Travel Social History Tobacco Use Types Packs/Day [...] have Coronavirus / COVID-19? No / Unsure 11/18/2019 2:04 PM CDT documented as of this encounter Plan of Treatment Upcoming Encounters Date Type Department Care Team (Late st Contact Info) Description 05/17/2024 2:45 PM MEDICARE SPECIALIST Office Visit [facility] - Endocrinology - [place] #[address] [place] [address] Annel Rod MD [address] [address] documented as of this encounter Visit Diagnoses Not on filedocumented in this encounter Additional Health Concerns Assessment Noted Time PHQ-9 Depression Total Score: 0 09/08/19 19 1:00 PM CDT documented as of this encounter Care Teams Envelope Addresser Relationship Specialty Start Date End Date Justen Gale MD #2 [place] [address] PCP - General Family Medicine 10/17/17 documented as of this encounter
--- OUTSIDE RECORDS SUMMARY | 2024-04-26 03:01 | XMS_ITS | Encounter Summary ---
Author Organization [facility] Address [address] [place] [address] Phone Care Team Providers Care Plant Control Aide Name Role Phone Justen Gale MD Primary Care Provider [phone] Reason for Visit * Reason Onset Date Comments Low Blood Sugar 10/26/2019 Encounter Details Date Type Department Care Team (Late st Contact Info) Description 10/26/2019 Telephone [facility] [address] [place] [address] [place] [phone] Annel Rod MD #[address] [address] Low Blood Sugar Social History [...] Encounter - Jose Alejandro Roach RN - 10/26/2019 2:02 PM CDT SITUATION: Call of non-contracted specialist BACKGROUND: Patient is under quarantine for COVID as her daughter is positive. Specialist: Dr Rod, Endocrinology ASSESSMENT: Chief complaint: Has been having symptoms of low blood sugar. Recent blood surge 120, which is low for the patient. Denies current symptoms but states when she does have spells , it feels like a hot flash with shortness of breath . Emergent symptoms ruled out (shock symptoms, chest pain, stroke symptoms, uncontrolled bleeding, sounds like a life-threatening emergency) RECOMMENDATION: Nurse informed patient: Since you have a specialist and have symptoms/questions, it will be best for you to speak to your specialist at this time. Your specialist will want to know about these symptoms/questions. I will be glad to help you reach the answering service for your provider. Transferred caller/patient to answering service. Caller/Patient instructed to call back in 30-60 minutes if unable to speak to provider. documented in this encounter Plan of Treatment Upcoming Encounters Date Type Department Care Team (Late st Contact Info) Description 05/17/2024 2:45 PM PATIENT RELATIONS DIRECTOR Office Visit [facility] - Endocrinology - [place] #2 [place] [address] Annel Rod MD #2 [facility] [address] [place] [address] documented as of this encounter Visit Diagnoses Not on filedocumented in this encounter Additional Health Concerns Assessment Noted Time PHQ-9 Depression Total Score: 0 09/08/19 19 1:00 PM CDT documented as of this encounter Care Teams Plant Control Aide Relationship Specialty Start Date End Date Justen Gale MD #2 [facility] [address] [place] [address] PCP - General Family Medicine 10/17/17 documented as of this encounter
--- OUTSIDE RECORDS SUMMARY | 2024-04-26 03:01 | XMS_ITS | Encounter Summary ---
Author Organization [facility] Address [address] [place] [address] Phone Care Team Providers Care Turn Down Attendant Name Role Phone Justen Gale MD Primary Care Provider [phone] Reason for Referral * Consult, Test & Initiate Treatment (Less Than 1 Week) - Closed Specialty Diagnoses / Procedures Referred By Contac t Referred To Contact Diagnoses Restless leg syndrome Justen Gale MD #[address] [address] Phone: tel: fax: Kaylie Castro MD Phone: tel: fax: Referral ID Status Reason Start Date Expiration Date Visits Re quested Visits Authorized [id number] Closed 10/11/2019 1 11 Scheduling Instructions Karly is being referred to Dr. Kaylie Castro at [facility] or other specialist in patient's insurance network for restless leg syndrome. See below for Karly's current medications, allergies [...] (BMI) of 50.0 to 59.9 in adult ([facility]) Thyroid nodule Reason for Visit * Reason Onset Date Comments Referral 10/11/2019 Encounter Details Date Type Department Care Team (Late st Contact Info) Description 10/11/2019 [facility] [address] [place] [address] Justen Gale MD #2 [facility] [address] [place] [address] Referral Social History Tobacco Use Types Packs/Day [...] Telephone Encounter - Justen Gale MD - 10/11/2019 2:47 PM CDT Please call. done * Telephone Encounter - Marlys Lane RN - 10/11/2019 10:47 AM CDT Kaila, from Dr. Kaylie Castro's office at [facility], calling and stating that patient need a referral for her appointment on 10/21. Would provider be willing to sign referral? Order pended for your review. documented in this encounter Plan of Treatment Upcoming Encounters Date Type Department Care Team (Late st Contact Info) Description 05/17/2024 2:45 PM BRICK POINTER Office Visit [facility] - Endocrinology - [place] #2 [place] [address] Annel Rod MD #2 [facility] [address] [place] [address] Scheduled Referrals Name Type Priority Associated Diagnoses Order Schedule EXTERNAL ENDOCRINOLOGY REFERRAL Outpatient Referral Less Than 1 week Restless leg syndrome Expected: 10/11/2019, Expires: 10/10/2020 documented as of this encounter Visit Diagnoses Diagnosis Restless leg syndrome- Primary Restless legs syndrome (RLS) documented in this encounter Additional Health Concerns Assessment Noted Time PHQ-9 Depression Total Score: 0 09/08/19 1:00 PM CDT documented as of this encounter Care Teams Turn Down Attendant Relationship Specialty Start Date End Date Justen Gale MD #2 [place] [id number] PCP - General Family Medicine 10/17/17 documented as of this encounter
--- OUTSIDE RECORDS SUMMARY | 2024-04-26 03:01 | XMS_ITS | Encounter Summary ---
Author Organization [facility] [employer] Care Team Providers Care Senior Design Engineering Specialist Name Role Phone Justen Gale MD Primary Care Provider [phone] Encounter Details Date Type Department Care Team (Latest Contact Info) Description 01/24/2020 Travel Social History Tobacco Use Types Packs/Day [...] st Contact Info) Description 05/17/2024 2:45 PM FLEXIBLE MACHINING SYSTEM MACHINIST Office Visit [facility] - Endocrinology - [place] [address] [address] Annel Rod MD #[address] [address] documented as of this encounter Visit Diagnoses Not on filedocumented in this encounter Additional Health Concerns Assessment Noted Time PHQ-9 Depression Total Score: 0 09/08/19 19 1:00 PM CDT documented as of this encounter Care Teams Senior Design Engineering Specialist Relationship Specialty Start Date End Date Justen Gale MD #2 [place] [address] PCP - General Family Medicine 10/17/17 documented as of this encounter
--- OUTSIDE RECORDS SUMMARY | 2024-04-26 03:01 | XMS_ITS | Encounter Summary ---
Author Organization [facility] Address [address] [facility] [place] [address] Phone Care Team Providers Care Chief Digital Media Officer Name Role Phone Justen Gale MD Primary Care Provider [phone] Reason for Visit * Reason Onset Date Comments COVID-19 10/16/2019 daughter is posi tive for covid19/ no syptoms Encounter Details Date Type Department Care Team (Late Contact Info) Description 10/16/2019 Telephone [facility] Contact [facility] [address] [place] [address] Justen Gale MD #[address] [address] COVID-19 (daughter is positive for covid19/ no syptoms ) Social History Tobacco Use Types Packs/Day [...] suspected to have Coronavirus / COVID-19? Yes 10/16/2019 3:45 PM CDT documented as of this encounter Miscellaneous Notes * Telephone Encounter - Deidra Bartholomew RN - 10/16/2019 3:45 PM CDT Images from the original note were not included. Travel Screening Question Response Do you have any of the following symptoms? Abdominal pain In the last month, have you been in contact with someone who was confirmed or suspected to have Coronavirus / COVID-19? Yes Have you traveled internationally in the last month? No Travel History Travel since 09/15/19 No documented travel since 09/15/19 Screening Results: NO COVID-19 LIKE SYMPTOMS Not Symptomatic - Educate patient using CDC care guidelines. Discussed [facility] testing site options and gave her the information of the mobile testing site tomorrow at [facility] Is patient is a healthcare worker or contract associate (Previous Answer - )? No At this time, based on our discussion the [facility] department does not recommend that you have any further testing. We would recommend following the CDC and [facility] department of health guidelines,which include: ?? practicing social distancing (staying 6 feet away from others) ?? washing your hands often ?? keeping yourself hydrated ?? staying home as much as possible If you do develop any symptoms including fever, cough, or shortness of breath please call us back. DEIDRA BARTHOLOMEW RN documented in this encounter Plan of Treatment Upcoming Encounters Date Type Department Care Team (Late st Contact Info) Description 05/17/2024 2:45 PM SENIOR ELECTRICAL PROJECT MANAGER Office Visit [facility] - Endocrinology - [place] [address] [place] [address] Annel Rod MD #[address] [address] documented as of this encounter Visit Diagnoses Not on filedocumented in this encounter Additional Health Concerns Assessment Noted Time PHQ-9 Depression Total Score: 0 09/08/19 19 1:00 PM CDT documented as of this encounter Care Teams Chief Digital Media Officer Relationship Specialty Start Date End Date Justen Gale MD #[address] [address] PCP - General Family Medicine 10/17/17 documented as of this encounter
--- OUTSIDE RECORDS SUMMARY | 2024-04-26 03:01 | XMS_ITS | Encounter Summary ---
Author Organization [facility] Address [address] [place] [address] Phone Care Team Providers Care Audit Director Name Role Phone Justen Gale MD Primary Care Provider [phone] Reason for Visit * Reason Onset Date Comments Care Management 10/28/2019 Encounter Details Date Type Department Care Team (Late st Contact Info) Description 10/28/2019 Telephone [facility] - [place] #2 [place] [address] Annel Rod MD #[address] [address] Care Management Social History Tobacco [...] Telephone Encounter - Madison Mccray CMA - 10/28/2019 3:09 PM CDT Left message for patient to call back. * Telephone Encounter - Annel Rod MD - 10/28/2019 10:39 AM CDT The patient called for low blood sugar event Please get [facility] log for review Additional steps in management to be determined once result is available for review documented in this encounter Plan of Treatment Upcoming Encounters Date Type Department Care Team (Late st Contact Info) Description 05/17/2024 2:45 PM QUICK SKETCH ARTIST Office Visit [facility] - Endocrinology - [place] #2 [place] [address] Annel Rod MD #2 [facility] [address] [place] [address] documented as of this encounter Visit Diagnoses Not on filedocumented in this encounter Additional Health Concerns Assessment Noted Time PHQ-9 Depression Total Score: 0 09/08/19 19 1:00 PM CDT documented as of this encounter Care Teams Audit Director Relationship Specialty Start Date End Date Justen Gale MD #2 [facility] [address] [place] [address] PCP - General Family Medicine 10/17/17 documented as of this encounter
--- OUTSIDE RECORDS SUMMARY | 2024-04-26 03:01 | XMS_ITS | Encounter Summary ---
Author Organization [facility] Address [address] [place] [address] Phone Care Team Providers Care Vp Product Name Role Phone Justen Gale MD Primary Care Provider [phone] Reason for Visit * Reason Onset Date Comments Low Blood Sugar 02/06/2020 Encounter Details Date Type Department Care Team (Late st Contact Info) Description 02/06/2020 Telephone [facility] - [place] [address]2 [place] [address] Annel Rod MD #[address] [address] Low Blood Sugar Social History [...] Telephone Encounter - Jennifer Wang RN - 02/07/2020 2:15 PM CDT Patient informed. Verbalizes understanding. * Telephone Encounter - Annel Rod MD - 02/07/2020 1:45 PM CDT Current Rx: Lantus 50 units in the morning Humalog to 26 units before each meal ISF of 1:15 if CBG is > 140 mg/dL PLAN: 1. Reduce Lantus to 40 units in the morning 2. Reduce Humalog to 22 units before each meal 3. Contact endocrinology office for low blood sugar event * Telephone Encounter - Jennifer Wang RN - 02/06/2020 4:13 PM CDT Patient states her blood sugars have been 60-78 all day the last 2 days. Patient states she has only taken her am dose of Lantus and Humalog. States she has been eating and drinking all day and can't get her blood sugars up. documented in this encounter Plan of Treatment Upcoming Encounters Date Type Department Care Team (Late st Contact Info) Description 05/17/2024 2:45 PM PSYCHIATRIC CLINICAL NURSE SPECIALIST Office Visit [facility] - Endocrinology - [place] [address] [place] [phone] Annel Rod MD [address] [phone] documented as of this encounter Visit Diagnoses Not on filedocumented in this encounter Additional Health Concerns Assessment Noted Time PHQ-9 Depression Total Score: 0 09/08/19 19 1:00 PM CDT documented as of this encounter Care Teams Vp Product Relationship Specialty Start Date End Date Justen Gale MD #[address] [place] [id number] PCP - General Family Medicine 10/17/17 documented as of this encounter
--- OUTSIDE RECORDS SUMMARY | 2024-04-26 03:01 | XMS_ITS | Encounter Summary ---
Author Organization [facility] Address [address] [place] [address] Phone Care Team Providers Care Entry Level Finance Name Role Phone Justen Gale MD Primary Care Provider [phone] Reason for Visit * Reason Onset Date Comments Back Pain 12/27/2019 Chest Pain 12/27/2019 Nausea 12/27/2019 Abdominal Pain 12/27/2019 Dizziness 12/27/2019 Fatigue 12/27/2019 Bloated 12/27/2019 Shaking 12/27/2019 Shortness of Breath 12/27/2019 Painful Swallowing 12/27/2019 Encounter Details Date Type Department Care Team (Late st Contact Info) Description 12/27/2019 [facility] [address] [place] [phone] Justen Gale MD #[address] [address] Back Pain; Chest Pain; Nausea; Abdominal Pain; Dizziness; Fatigue; Bloated; Shaking; Shortness of Breath; Painful Swallowing Social History Tobacco Use Types Packs/Day Years [...] have Coronavirus / COVID-19? No / Unsure 12/27/2019 9:45 PM CDT documented as of this encounter Miscellaneous Notes * Telephone Encounter - Brigitte García RN - 12/27/2019 9:42 PM CDT Images from the original note were not included. Travel Screening Question Response In the last month, have you been in contact with someone who was confirmed or suspected to have Coronavirus / COVID-19? No / Unsure Have you had a COVID-19 viral test in the last 14 days? No Do you have any of the following new or worsening symptoms? Shortness of breath;Abdominal pain;Chills;Fatigue Have you traveled internationally in the last month? No Travel History Travel since 11/26/19 No documented travel since 11/26/19 COVID-19 Testing Priority for Karly Marques: 2 SITUATION: Patient calling, multiple symptoms BACKGROUND: Patient was seen about 3 weeks ago in PCP office for complaints of similar but more mild episodes of nausea, dysphagia, belching. Patient was referred to Gastroenterology and was seen on 12/19/2019. Scheduled for gastric emptying study, colonoscopy and upper endoscopy in 2 weeks. Was tested for Covid back in September 2019, none detected at that timew History (See EMR snapshot for full list): Type 2 insulin-dependent diabetic, DVT, CVA, chronic anticoag therapy (xarelto), S/P mastectomy for breast neoplasm, PE, Diverticulosis, GERD, LUL, neuropathy, HTN, cholecystectomy ASSESSMENT: Symptoms started about 3-4 weeks ago and have worsened in severity according to patient. Patient is having intermittent episodes that last about 2- 7 minutes at a time where she feels very, very sick .. Symptoms include: Hot flashes, sweating, nausea, SOB, difficulty taking a deep breath, moderate abdominal discomfort all over , belching, chest pressure and moderate pain between shoulder blades, shaking, fatigue, feels like she is going to pass out, lightheadedness. Patient states these episodes occur mostly after eating, but also wake her up at night and occur randomly at times.Patient states it feels like when she has hypoglycemia but that she checks her blood sugar during ep isodes and she has never had significantly low or high readings. Constant symptoms include increased bloating and belching, mild to moderate constant pain between shoulder blades Some constipation issues over past 3 weeks States when she eats she gets pain as if food is stuck in her esophagus. Patient has not adjusted consistency of food to determine the effect. Patient states she has been eating less overall because of symptoms. Denies the following: diarrhea, fever, cough, sore throat, severe headache Patient states that she is not currently having an episode with chest pain and SOB. Patient able tospeak rapidly in full sentences without difficulty. RECOMMENDATION: Go to ED now. Patient states that another adult will drive her to the nearest ED which is [facility]. Verbal report called to Anais LAWLER at [facility] ED per patient's approval. Caller agrees to call back if needing further assistance. See care advice and disposition for guideline. First positive answer recorded, all responses to prior questions were negative. If symptoms increase, change or if new symptoms develop, call your PCP or call back. Recommendation based on caller information and is not a diagnosis. Verified and reviewed all triage information with caller. Caller verbalized understanding of information given and denies further questions. Teach-back method utilized Reason for Disposition ??? [1] Intermittent chest pain or angina AND [2] increasing in severity or frequency (Exception:pains lasting a few seconds) Protocols used: CHEST PAIN-A-AH documented in this encounter Plan of Treatment Upcoming Encounters Date Type Department Care Team (Late st Contact Info) Description 05/17/2024 2:45 PM ESCALATOR SERVICE MECHANIC Office Visit [facility] - Endocrinology - [place] [address] [place] [phone] Annel Rod MD [address] [address] documented as of this encounter Visit Diagnoses Not on filedocumented in this encounter Additional Health Concerns Assessment Noted Time PHQ-9 Depression Total Score: 0 09/08/19 19 1:00 PM CDT documented as of this encounter Care Teams Entry Level Finance Relationship Specialty Start Date End Date Justen Gale MD #[address] [address] PCP - General Family Medicine 10/17/17 documented as of this encounter
--- OUTSIDE RECORDS SUMMARY | 2024-04-26 03:01 | XMS_ITS | Encounter Summary ---
Author Organization [facility] Address [address] [place] [address] Phone Care Team Providers Care Manager Site Name Role Phone Justen Gale MD Primary Care Provider [phone] Encounter Details Date Type Department Care Team (Late st Contact Info) Description 12/27/2019 Telephone [facility] - [place] [address]2 [place] [address] Genaro Jensen, DO [address] [address] Social History Tobacco Use Types [...] Telephone Encounter - Ricarda Ba - 12/27/2019 8:59 AM CDT Letter to patient to call back and schedule procedures documented in this encounter Plan of Treatment Upcoming Encounters Date Type Department Care Team (Late st Contact Info) Description 05/17/2024 2:45 PM PER DIEM PHYSICAL THERAPIST Office Visit [facility] - Endocrinology - [place] [address] [place] [address] Annel Rod MD #2 [facility] [address] [place] [address] documented as of this encounter Visit Diagnoses Not on filedocumented in this encounter Additional Health Concerns Assessment Noted Time PHQ-9 Depression Total Score: 0 09/08/19 19 1:00 PM CDT documented as of this encounter Care Teams Manager Site Relationship Specialty Start Date End Date Justen Gale MD #2 [facility] [address] [place] [address] PCP - General Family Medicine 10/17/17 documented as of this encounter
--- OUTSIDE RECORDS SUMMARY | 2024-04-26 03:01 | XMS_ITS | Encounter Summary ---
Author Organization [facility] Address [address] [place] [address] Phone Care Team Providers Care Tunnel Elastic Operator Lockstitch Name Role Phone Justen Gale MD Primary Care Provider [phone] Reason for Referral * Radiology Services (Routine) - Closed Specialty Diagnoses / Procedures Referred By Elyssa benavides Referred To Contact Radiology Diagnoses Type 2 diabetes mellitus with diabetic polyneuropathy, with long-term current use of insulin (HCC) Thyroid nodule Procedures US THYROID/NECK Annel Rod MD #[address] [address] Phone: tel: fax: Referral ID Status Reason Start Date Expiration Date Visits Re quested Visits Authorized [id number] Closed 11/18/2019 1 1 Reason for Visit * Radiology Services (Routine) - Closed Specialty Diagnoses / Procedures Referred By Elyssa benavides Referred To Contact Radiology Diagnoses Type 2 diabetes mellitus with diabetic polyneuropathy, with long-term current use of insulin (HCC) Thyroid nodule Procedures US THYROID/NECK Annel Rod MD #[address] [address] Phone: tel: fax: Referral ID Status Reason Start Date Expiration Date Visits Re quested Visits Authorized [id number] Closed 11/18/2019 1 1 Encounter Details Date Type Department Care Team (Latest Contact Info) Description 12/09/2019 2:07 PM CDT - 12/09/2019 11:59 PM CDT Hospital Encounter [facility] Ultrasound [address] [place] [address] Annel Rod MD #[address] [phone] Discharge Disposition: Discharged to home or Selfcare [...] PM CDT documented as of this encounter Medications at Time of Discharge Blood Glucose Monitoring Suppl DeviceIndicatio ns:Type 2 diabetes mellitus with complication, without long-term current use of insulin (HCC) Diagnosis: Diabetes Type 2 Blood testing frequency: 4 times a day 1 Each 11/21/2017 exemestane (AROMASIN) 25 MG Tablet Take 25 mg by mouth daily. HYDROcodone-sara taminophen (NORCO) 7.5-325 MG Tablet 0 02/17/2019 rivaroxaban (XARELTO) 20 MG Tablet Take 20 mg by mouth daily. amitriptyline (ELAVIL) 25 MG Tablet nightly. 02/18/2019 4 atorvastatin (LIPITOR) 20 MG Tablet Take 1 Tab by mouth daily. 90 Tab 3 01/19/2018 2 Glucose Blood (ONE TOUCH ULTRA TEST) Strip Test four times daily. 400 Strip 3 01/19/2018 0 Insulin Lispro, 1 Unit Dial, (HUMALOG KWIKPEN) 100 UNIT/ML Solution Pen-injector INJECT 26 UNITS BEFORE EACH MEAL. ISF OF 1:40>140 MG/DL, UP TO 120 UNITS PER DAY DIRECTED 45 mL 2 11/18/2019 1 Insulin Pen Needle (PEN NEEDLES 31GX5/16 ) 31G X 8 MM Misc Use 6 times daily E11.9 300 Each 3 10/27/2018 0 LANTUS SOLOSTAR 100 UNIT/ML Solution Pen-injector INJECT 50 UNITS SUBCUTANEOUSLY EVERY MORNING 45 mL 1 09/11/2019 1 lisinopril (PRINIVIL, ZESTRIL) 20 MG Tablet TAKE 1 TABLET BY MOUTH DAILY 90 Tab 2 09/30/2019 1 Misc. Devices Misc Supply and instructions: 1 Each 02/25/2019 2 ondansetron (ZOFRAN) 4 MG Tablet TAKE 1 TABLET BY MOUTH EVERY 8 HOURS NEEDED FOR NAUSEA 15 Tab 9 08/07/2019 2 ONETOUCH DELICA LANCETS 33G Misc 1 Lancet by Does not apply route 4 times daily. 400 Lancet 3 01/19/2018 1 oxybutynin (DITROPAN) 5 MG Tablet TAKE 1 TABLET BY MOUTH TWICE DAILY 180 Tab 2 06/14/2019 1 Polyethylene Glycol 3350 (MIRALAX PO) Take by mouth. 05/19/19 2 2 rOPINIROLE (REQUIP) 5 MG Tablet TAKE 1 TABLET BY MOUTH EVERY NIGHT 90 Tab 3 09/18/2018 0 documented as of this encounter Plan of Treatment Upcoming Encounters Date Type Department Care Team (Late st Contact Info) Description 05/17/2024 2:45 PM INTERNET DATABASE SPECIALIST Office Visit [facility] - Endocrinology - [place] [address] [place] [phone] Annel Rod MD #[address] [phone] documented as of this encounter Procedures Procedure Name Priority Date/Time Associated Diagnosis Comments US THYROID Routine 12/09/2019 2:51 PM CDT Type 2 diabetes mellitus with diabetic polyneuropathy, with long-term current use of insulin (HCC) Thyroid nodule documented in this encounter Results * US THYROID/NECK (12/09/2019 2:51 PM CDT) Anatomical Region Laterality Modality BODY N/A Ultrasound 12/10/2019 10:1 0 AM CDT Impressions 12/10/2019 10:13 AM CDT IMPRESSION: ??Unchanged 2.8 cm nodule within the inferior right thyroid lobe. Interval decreased size of a now 1.3 cm nodule within the inferior left thyroid lobe, previously 2.1 cm. Additional findings as above Narrative 12/10/2019 10:13 AM CDT EXAM DESCRIPTION: ?? US THYROID/NECK REASON FOR STUDY: ?? Type 2 diabetes mellitus with diabetic polyneuropathy Follow-up nodules. TECHNIQUE: ??Ultrasound of the thyroid was performed with grayscale and color doppler. COMPARISON: ?? 06/11/2018 FINDINGS: ??RIGHT: The right thyroid lobe measures ??4.5 x 2.1 x 2.1 cm. ??The right thyroid lobe is normal in echotexture. ??Within the inferior pole, there is a 2.8 x 2.0 x 1.9 cm mixed solid and cystic, heterogenous nodule within the right thyroid lobe with predominately isoechoic internal echotexture. ??There are spine with well-defined margins and mild surrounding peripheral vascularity. ??This previously measured 2.9 x 2.3 x 2.2 cm and likely unchanged accounting for differences in imaging and measurement technique. LEFT: The left thyroid lobe measures ??3.4 x 1.3 x 1.3 cm. ??The left thyroid lobe is normal in echotexture. ??Within the superior pole, there is a 0.5 x 0.4 x 0.5 cm solid nodule with coarse calcification. ??Within the inferior pole, there is a 1.3 x 1.1 x 1.2 cm solid, isoechoic, round nodule with ill-defined margins. ??This previously measured 2.1 x 1.3 x 1.5 cm. ISTHMUS: The isthmus measures ??0.5 cm in AP dimension. ??The isthmus is normal in echotexture. ??0.6 cm solid nodule within the isthmus is only partially seen. VASCULARITY: ??Normal. OTHER: ??No other significant finding. THIS IS AN ELECTRONICALLY VERIFIED FINAL REPORT 12/10/2019 10:10 AM - Electronically signed by Cleo Garza BG: BG D: ??12/10/2019 10:10 AM T: ??12/10/2019 10:10 AM Report ID: [id number] Reading Location: ??[id number] Procedure Note Cleo Garza MD - 12/10/2019 EXAM DESCRIPTION: US THYROID/NECK REASON FOR STUDY: Type 2 diabetes mellitus with diabetic polyneuropathy Follow-up nodules. TECHNIQUE: Ultrasound of the thyroid was performed with grayscale and color doppler. COMPARISON: 06/11/2018 FINDINGS: RIGHT: The right thyroid lobe measures 4.5 x 2.1 x 2.1 cm. The right thyroid lobe is normal in echotexture. Within the inferior pole, there is a 2.8 x 2.0 x 1.9 cm mixed solid and cystic, heterogenous nodule within the right thyroid lobe with predominately isoechoic internal echotexture. There are spine with well-defined margins and mild surrounding peripheral vascularity. This previously measured 2.9 x 2.3 x 2.2 cm and likely unchanged accounting for differences in imaging and measurement technique. LEFT: The left thyroid lobe measures 3.4 x 1.3 x 1.3 cm. The left thyroid lobe is normal in echotexture. Within the superior pole, there is a 0.5 x 0.4 x 0.5 cm solid nodule with coarse calcification. Within the inferior pole, there is a 1.3 x 1.1 x 1.2 cm solid, isoechoic, round nodule with ill-defined margins. This previously measured 2.1 x 1.3 x 1.5 cm. ISTHMUS: The isthmus measures 0.5 cm in AP dimension. The isthmus is normal in echotexture. 0.6 cm solid nodule within the isthmus is only partially seen. VASCULARITY: Normal. OTHER: No other significant finding. THIS IS AN ELECTRONICALLY VERIFIED FINAL REPORT 12/10/2019 10:10 AM - Electronically signed by Cleo Garza BG: Report ID: [id number] Reading Location: [id number] IMPRESSION: Unchanged 2.8 cm nodule within the inferior right thyroid lobe. Interval decreased size of a now 1.3 cm nodule within the inferior left thyroid lobe, previously 2.1 cm. Additional findings as above Annel Rod MD G US ORDERABLES Final Result documented in this encounter Visit Diagnoses Diagnosis Type 2 diabetes mellitus with diabetic polyneuropathy, with long-term current use of insulin (HCC) Thyroid nodule Nontoxic uninodular goiter documented in this encounter Additional Health Concerns Assessment Noted Time PHQ-9 Depression Total Score: 0 09/08/19 19 1:00 PM CDT documented as of this encounter Care Teams Tunnel Elastic Operator Lockstitch Relationship Specialty Start Date End Date Justen Gale MD #[address] [address] PCP - General Family Medicine 10/17/17 documented as of this encounter
--- OUTSIDE RECORDS SUMMARY | 2024-04-26 03:01 | XMS_ITS | Encounter Summary ---
Author Organization [facility] Address [address] [place] [address] Phone Care Team Providers Care Student Services Rep Name Role Phone Justen Gale MD Primary Care Provider Encounter Details Date Type Department Care Team (Late st Contact Info) Description 11/05/2019 Telephone [facility] #2 [place] [address] Justen Gale MD #[address] [address] Social History Tobacco Use Types Packs/Day Years [...] Telephone Encounter - Alejandra Rosales RN - 11/20/2019 9:03 AM CDT Per chart review patient had a telephone appt with pcp on 11/05/19 * Telephone Encounter - Justen Gale MD - 11/05/2019 5:02 PM CDT Please call. Needs ov. documented in this encounter Plan of Treatment Upcoming Encounters Date Type Department Care Team (Late st Contact Info) Description 05/17/2024 2:45 PM DENTAL CERAMIST ASSISTANT Office Visit [facility] - Endocrinology [facility] #2 [place] [address] Annel Rod MD #2 [facility] [address] [place] [address] documented as of this encounter Visit Diagnoses Not on filedocumented in this encounter Additional Health Concerns Assessment Noted Time PHQ-9 Depression Total Score: 0 09/08/19 19 1:00 PM CDT documented as of this encounter Care Teams Student Services Rep Relationship Specialty Start Date End Date Justen Gale MD #2 [facility] [address] [place] [address] PCP - General Family Medicine 10/17/17 documented as of this encounter
--- OUTSIDE RECORDS SUMMARY | 2024-04-26 03:01 | XMS_ITS | Encounter Summary ---
Author Organization [facility] Address [address] [facility] [place] [address] Phone Care Team Providers Care High School Auto Repair Teacher Name Role Phone Justen Gale MD Primary Care Provider [phone] Reason for Visit * Reason Onset Date Comments COVID-19 10/16/2019 Encounter Details Date Type Department Care Team (Late st Contact Info) Description 10/16/2019 [facility] Center [address] [place] [address] Justen Gale MD #[address] [address] COVID-19 Social History Tobacco Use Types Packs/Day [...] Telephone Encounter - Deidra Bartholomew RN - 10/17/2019 10:45 PM CDT Opened in error documented in this encounter Plan of Treatment Upcoming Encounters Date Type Department Care Team (Late st Contact Info) Description 05/17/2024 2:45 PM WAFER SUBSTRATE TESTER Office Visit [facility] - Endocrinology - [place] #2 [place] [address] Annel Rod MD #2 [facility] [address] [place] [address] documented as of this encounter Visit Diagnoses Not on filedocumented in this encounter Additional Health Concerns Assessment Noted Time PHQ-9 Depression Total Score: 0 09/08/19 19 1:00 PM CDT documented as of this encounter Care Teams [employer] Auto Repair Teacher Relationship Specialty Start Date End Date Justen Gale MD #2 [facility] [address] [place] [address] PCP - General Family Medicine 10/17/17 documented as of this encounter
--- OUTSIDE RECORDS SUMMARY | 2024-04-26 03:01 | XMS_ITS | Encounter Summary ---
Author Organization [facility] Address [address] [place] [address] Phone Care Team Providers Care Door Paneler Name Role Phone Justen Gale MD Primary Care Provider Reason for Visit * Reason Comments Medication Refill Encounter Details Date Type Department Care Team (Late st Contact Info) Description 09/11/2019 Refill [facility]ology - [place] #2 [place] [address] Annel Rod MD #[address] [address] Medication Refill Social History Tobacco [...] Coronavirus / COVID-19? No / Unsure 09/05/2019 1:58 PM CDT documented as of this encounter Miscellaneous Notes * Telephone Encounter - Annel Rod MD - 09/11/2019 12:56 PM CDT Rx sent * Telephone Encounter - Madison Mccray CMA - 09/11/2019 11:37 AM CDT Patient calling requesting refill of: Requested Prescriptions Pending Prescriptions Disp Refills ??? LANTUS SOLOSTAR 100 UNIT/ML Solution Pen-injector [Pharmacy Med Name: LANTUS SOLOSTAR PEN INJ 3ML] 15 mL 2 Sig: INJECT 50 UNITS SUBCUTANEOUSLY EVERY MORNING Last fill: Patients next office visit with ENDO is: 11/18/19 documented in this encounter Plan of Treatment Upcoming Encounters Date Type Department Care Team (Late st Contact Info) Description 05/17/2024 2:45 PM SYSTEM CONTROLLER Office Visit [facility] - Endocrinology [facility] #2 [place] [phone] Annel Rod MD #2 [facility] [address] [place] [address] documented as of this encounter Visit Diagnoses Not on filedocumented in this encounter Additional Health Concerns Infection Onset Date Last Indicated Resolved Time COVID - 19 09/05/2019 09/06/2019 10/03/2019 12:1 7 AM CDT Assessment Noted Time PHQ-9 Depression Total Score: 0 09/08/19 19 1:00 PM CDT documented as of this encounter Care Teams Door Paneler Relationship Specialty Start Date End Date Justen Gale MD #2 [facility] [address] [place] [address] PCP - General Family Medicine 10/17/17 documented as of this encounter
--- OUTSIDE RECORDS SUMMARY | 2024-04-26 03:01 | XMS_ITS | Encounter Summary ---
Author Organization [facility] Address [address] [place] [address] Phone Care Team Providers Care Plant Clerk Name Role Phone Justen Gale MD Primary Care Provider [phone] Reason for Visit * Reason Onset Date Comments Results 01/22/2020 Colonoscopy/EGD at [place] Encounter Details Date Type Department Care Team (Late st Contact Info) Description 01/22/2020 Telephone [facility] - Gastroenterology [facility] #2 [place] [address] Genaro Jensen, DO [address] [address] Results (Colonoscopy/EGD at [place]) Social History Tobacco Use Types Packs/Day Years [...] encounter Miscellaneous Notes * Telephone Encounter - Alicia Mccann RN - 01/23/2020 9:57 AM CDT Patient returned call. Patient notified of results and verbalizes understanding. * Telephone Encounter - Alicia Mccann RN - 01/22/2020 11:18 AM CDT Facility: [place] Test: Colonoscopy/EGD Results: biopsies negative Orders: recheck colon in 5-7 years, Flagyl was given at [place] for 10 days, continue pantoprazole Test on: 01/09/20 Placed in paperwork to go to [facility] on: 01/22/20 Left message on machine. Recall placed. Health information updated. documented in this encounter Plan of Treatment Upcoming Encounters Date Type Department Care Team (Late st Contact Info) Description 05/17/2024 2:45 PM DOCTOR OF PODIATRY Office Visit [facility] - Endocrinology [facility] [address]2 [place] [address] Annel Rod MD #2 [facility] [address] [place] [address] documented as of this encounter Visit Diagnoses Not on filedocumented in this encounter Additional Health Concerns Assessment Noted Time PHQ-9 Depression Total Score: 0 09/08/19 19 1:00 PM CDT documented as of this encounter Care Teams Plant Clerk Relationship Specialty Start Date End Date Justen Gale MD #2 [facility] [address] [place] [address] PCP - General Family Medicine 10/17/17 documented as of this encounter
--- OUTSIDE RECORDS SUMMARY | 2024-04-26 03:01 | XMS_ITS | Encounter Summary ---
Author Organization [facility] Address [address] [place] [address] Phone Care Team Providers Care Diplomatic Courier Name Role Phone Justen Gale MD Primary Care Provider [phone] Reason for Visit * Reason Onset Date Comments Erroneous Encounter - Disregard 10/30/2019 Encounter Details Date Type Department Care Team (Late st Contact Info) Description 10/30/2019 Telephone [facility] [address] [place], [place] [id number] Justen Gale MD #[address] [address] Erroneous Encounter - Disregard Social History Tobacco [...] Miscellaneous Notes * Telephone Encounter - Jennifer Kumari RN - 10/30/2019 10:42 AM CDT error documented in this encounter Plan of Treatment Upcoming Encounters Date Type Department Care Team (Late st Contact Info) Description 05/17/2024 2:45 PM ELECTRONIC DATA INTERCHANGE SPECIALIST Office Visit [facility] - Endocrinology - [place] [address] [place] [address] Annel Rod MD #2 [facility] [address] [place] [address] documented as of this encounter Visit Diagnoses Not on filedocumented in this encounter Additional Health Concerns Assessment Noted Time PHQ-9 Depression Total Score: 0 09/08/19 19 1:00 PM CDT documented as of this encounter Care Teams Diplomatic Courier Relationship Specialty Start Date End Date Justen Gale MD #2 [facility] [address] [place] [address] PCP - General Family Medicine 10/17/17 documented as of this encounter
--- OUTSIDE RECORDS SUMMARY | 2024-04-26 03:01 | XMS_ITS | Encounter Summary ---
Author Organization [facility] Address [address] [place] [address] Phone Care Team Providers Care Rubber Washer Name Role Phone Justen Gale MD Primary Care Provider [phone] Reason for Visit * Reason Onset Date Comments Cough 01/13/2020 Encounter Details Date Type Department Care Team (Late st Contact Info) Description 01/13/2020 Telephone [facility] - Gastroenterology [facility] #2 [place] [address] Genaro Jensen, DO [address] [address] Cough Social History Tobacco Use Types Packs/Day Years [...] Miscellaneous Notes * Telephone Encounter - Christin Valdovinos RN - 01/13/2020 9:24 AM CDT Spoke with patient, patient aware of JAMAR Wang recommendations and verbalizes understanding. Patient will call GI office in a few days if coughing persists. * Telephone Encounter - Nessa Padgett PAC - 01/13/2020 9:17 AM CDT Recommend saltwater gargles and Chloraseptic. If her symptoms persist please be seen. * Telephone Encounter - Christin Valdovinos RN - 01/13/2020 9:03 AM CDT Patient called and said she had an EGD last and has been coughing since then. She said thecoughing is worse at night when she is flat in bed which is causing her to not sleep. She said she also has a raspy voice. Routed to JAMAR Wang, please advise. documented in this encounter Plan of Treatment Upcoming Encounters Date Type Department Care Team (Late st Contact Info) Description 05/17/2024 2:45 PM AUTOMOBILE TIRE BUILDER Office Visit [facility] - Endocrinology - [place] [address] [place] [address] Annel Rod MD #[address] [phone] documented as of this encounter Visit Diagnoses Not on filedocumented in this encounter Additional Health Concerns Assessment Noted Time PHQ-9 Depression Total Score: 0 09/08/19 19 1:00 PM CDT documented as of this encounter Care Teams Rubber Washer Relationship Specialty Start Date End Date Justen Gale MD #2 [place] [id number] PCP - General Family Medicine 10/17/17 documented as of this encounter
--- OUTSIDE RECORDS SUMMARY | 2024-04-26 03:01 | XMS_ITS | Encounter Summary ---
Author Organization [facility] Address [address] [place] [address] Phone Care Team Providers Care Cloth Coverer Name Role Phone Justen Gale MD Primary Care Provider [phone] Reason for Visit * Reason Comments Medication Refill Encounter Details Date Type Department Care Team (Late st Contact Info) Description 09/29/2019 Refill [facility] [address] [place], [place] [phone] Justen Gale MD #[address] [address] Medication Refill Social History Tobacco Use Types [...] encounter Miscellaneous Notes * Telephone Encounter - Felicitas Krishna RN - 09/30/2019 10:09 AM CDT Medication(s) refilled and signed per [facility] Chronic Medication Refill Standing Order for Pediatric and Adult Patients. documented in this encounter Plan of Treatment Upcoming Encounters Date Type Department Care Team (Late st Contact Info) Description 05/17/2024 2:45 PM LINING FINISHER Office Visit [facility] - [place] [address] [place] [address] Annel Rod MD #2 [facility] [address] [place] [address] documented as of this encounter Visit Diagnoses Not on filedocumented in this encounter Additional Health Concerns Infection Onset Date Last Indicated Resolved Time COVID - 19 09/05/2019 09/06/2019 10/03/2019 12:1 7 AM CDT Assessment Noted Time PHQ-9 Depression Total Score: 0 09/08/19 19 1:00 PM CDT documented as of this encounter Care Teams Cloth Coverer Relationship Specialty Start Date End Date Justen Gale MD #2 [facility] [address] [place] [address] PCP - General Family Medicine 10/17/17 documented as of this encounter
--- OUTSIDE RECORDS SUMMARY | 2024-04-26 03:01 | XMS_ITS | Encounter Summary ---
Author Organization [facility] [employer] Care Team Providers Care Co Pilot Name Role Phone Justen Gale MD Primary Care Provider [phone] Encounter Details Date Type Department Care Team (Latest Contact Info) Description 02/17/2020 Travel Social History Tobacco Use Types Packs/Day [...] st Contact Info) Description 05/17/2024 2:45 PM CARDIOLOGY NURSE PRACTITIONER Office Visit [facility] - Endocrinology - [place] #[address] [place] [address] Annel Rod MD [address] [facility] [address] [phone] documented as of this encounter Visit Diagnoses Not on filedocumented in this encounter Additional Health Concerns Assessment Noted Time PHQ-9 Depression Total Score: 0 09/08/19 19 1:00 PM CDT documented as of this encounter Care Teams Co Pilot Relationship Specialty Start Date End Date Justen Gale MD #2 [place] [address] PCP - General Family Medicine 10/17/17 documented as of this encounter
--- OUTSIDE RECORDS SUMMARY | 2024-04-26 03:01 | XMS_ITS | Encounter Summary ---
Author Organization [facility] Address [address] [place] [address] Phone Care Team Providers Care Tumbling And Rolling Supervisor Name Role Phone Justen Gale MD Primary Care Provider [phone] Encounter Details Date Type Department Care Team (Late st Contact Info) Description 12/19/2019 Telephone [facility] - Gastroenterology - [place] [address]2 [place] [address] Genaro Jensen, DO [address] [address] Social History Tobacco Use Types [...] * Telephone Encounter - Ricarda Ba - 12/19/2019 3:49 PM CDT Blood thinner clearance documented in this encounter Plan of Treatment Upcoming Encounters Date Type Department Care Team (Late st Contact Info) Description 05/17/2024 2:45 PM HOUSE WRECKER Office Visit [facility] - Endocrinology - [place] [address] [place] [address] Annel Rod MD #2 [facility] [address] [place] [address] documented as of this encounter Visit Diagnoses Not on filedocumented in this encounter Additional Health Concerns Assessment Noted Time PHQ-9 Depression Total Score: 0 09/08/19 19 1:00 PM CDT documented as of this encounter Care Teams Tumbling And Rolling Supervisor Relationship Specialty Start Date End Date Justen Gale MD [facility] [address] [place] [address] PCP - General Family Medicine 10/17/17 documented as of this encounter
--- OUTSIDE RECORDS SUMMARY | 2024-04-26 03:01 | XMS_ITS | Encounter Summary ---
Author Organization [facility] Address [address] [place] [address] Phone Care Team Providers Care Semiconductors Wafer Breaker Name Role Phone Justen Gale MD Primary Care Provider [phone] Reason for Visit * Reason Onset Date Comments Results 02/12/2020 Gastric emptying study at [place] Encounter Details Date Type Department Care Team (Late st Contact Info) Description 02/12/2020 Telephone [facility] - Gastroenterology - [place] #2 [place] [phone] Nessa Padgett, PAC #2 [place] [address] Results (Gastric emptying study at [place]) Social History Tobacco Use Types Packs/Day Years [...] Telephone Encounter - Alicia Mccann RN - 06/15/2020 2:37 PM CST Left 2nd message on machine TER INSPECTOR * Telephone Encounter - Alicia Mccann RN - 02/12/2020 11:08 AM CDT Left message on machine. * Telephone Encounter - Alicia Mccann RN - 02/12/2020 11:08 AM CDT ----- Message from JAMAR Elkins sent at 02/12/2020 10:56 AM CDT ----- Please advise gastric emptying study confirms and delayed gastric emptying. Recommend Reglan 5 mg twice daily. If she agrees please pend order for Reglan 5 mg 1 p.o. twice daily for gastroparesis. Follow-up in approximately 4 weeks. documented in this encounter Plan of Treatment Upcoming Encounters Date Type Department Care Team (Late st Contact Info) Description 05/17/2024 2:45 PM QUARTER INSPECTOR Office Visit [facility] - Endocrinology [facility] #[address] [place] [address] Annel Rod MD #[address] [facility] [address] [address] documented as of this encounter Visit Diagnoses Not on filedocumented in this encounter Additional Health Concerns Assessment Noted Time PHQ-9 Depression Total Score: 0 09/08/19 19 1:00 PM CDT documented as of this encounter Care Teams Semiconductors Wafer Breaker Relationship Specialty Start Date End Date Justen Gale MD [address] [address] PCP - General Family Medicine 10/17/17 documented as of this encounter
--- OUTSIDE RECORDS SUMMARY | 2024-04-26 03:01 | XMS_ITS | Encounter Summary ---
Author Organization [facility] Address [address] [place] [address] Phone Care Team Providers Care Pyrometallurgical Engineer Name Role Phone Justen Glae MD Primary Care Provider [phone] Reason for Visit * Reason Comments Medication Refill Encounter Details Date Type Department Care Team (Late st Contact Info) Description 03/08/2020 Refill [facility] [address] [place], [place] [phone] Justen Gale MD #[address] [address] Medication Refill Social History Tobacco Use Types [...] Telephone Encounter - Marlys Anderson RN - 03/09/2020 9:03 AM CST Medication(s) refilled and signed per [facility] Chronic Medication Refill Standing Order for Pediatricand Adult Patients. Requested Prescriptions Pending Prescriptions Disp Refills ??? rOPINIROLE (REQUIP) 5 MG Tablet [Pharmacy Med Name: ROPINIROLE 5MG TABLETS] 90 Tab 3 Sig: TAKE 1 TABLET BY MOUTH EVERY NIGHT Neurology: Parkinsonian Agents Passed - 03/08/2020 3:20 AM Passed - Valid encounter within last 12 months Past Office Visits Recent Outpatient Visits 3 weeks [facility] 3 months [facility] Type 2 diabetes mellitus with diabetic polyneuropathy, with long- term current use of insulin ([facility]) [facility] 4 months ago Nausea [facility] Justen Olmedo MD 7 months ago Nausea [facility] Justen Olmedo MD 10 months ago Preop examination [facility] Justen Olmedo MD Upcoming Appointments SORORITY SUPERVISOR - Recent and Past Visits Recent Visits Date Type Provider Dept 02/17/20 Office Visit Pili Elkins APN, CNP [facility] [place] 12/03/19 Office Visit Pili Elkins APN, CNP [facility] 11/05/19 Telemedicine Justen Gale MD [facility] 07/25/19 Telemedicine Justen Gale MD [facility] 04/15/19 Office Visit Justen Gale MD [facility] 02/25/19 Office Visit Justen Gale MD [facility] Showing recent visits within past 460 days with a meds authorizing provider and meeting all other requirements Future Appointments No visits were found meeting these conditions. Showing future appointments within next 90 days with a meds authorizing provider and meeting all other requirements Passed - Last BP in normal range BP Readings from Last 1 Encounters: 02/17/20 130/82 ING MACHINE COLLECTOR documented in this encounter Plan of Treatment Upcoming Encounters Date Type Department Care Team (Late st Contact Info) Description 05/17/2024 2:45 PM VENDING MACHINE COLLECTOR Office Visit [facility] - Endocrinology - [place] [address] [place] [address] Annel Rod MD #2 [facility] [address] [place] [address] documented as of this encounter Visit Diagnoses Not on filedocumented in this encounter Additional Health Concerns Assessment Noted Time PHQ-9 Depression Total Score: 0 09/08/19 19 1:00 PM CDT documented as of this encounter Care Teams Pyrometallurgical Engineer Relationship Specialty Start Date End Date Justen Gale MD #[address] [facility] [address] [place] [address] PCP - General Family Medicine 10/17/17 documented as of this encounter
--- OUTSIDE RECORDS SUMMARY | 2024-04-26 03:01 | XMS_ITS | Encounter Summary ---
Author Organization [facility] Address [address] [place] [address] Phone Care Team Providers Care Sausage Machine Operator Name Role Phone Justen Gale MD Primary Care Provider [phone] Reason for Visit * Reason Onset Date Comments Referral 12/09/2019 Encounter Details Date Type Department Care Team (Late st Contact Info) Description 12/09/2019 Telephone [facility] [address] [place] [address] Justen Gale MD #[address] [address] Referral Social History Tobacco Use Types Packs/Day [...] encounter Miscellaneous Notes * Telephone Encounter - Candy Alvarado, RN - 12/09/2019 11:21 AM CDT Patient calling upset because she has not heard back regarding her GI referral and Sleep Study. Gave patient phone numbers to both offices. Patient states she is going to call the offices to make an appointment. documented in this encounter Plan of Treatment Upcoming Encounters Date Type Department Care Team (Late st Contact Info) Description 05/17/2024 2:45 PM HOSPITAL PLAN ADMINISTRATOR Office Visit [facility] - Endocrinology - [place] #2 [place] [address] Annel Rod MD #2 [facility] [address] [place] [address] documented as of this encounter Visit Diagnoses Not on filedocumented in this encounter Additional Health Concerns Assessment Noted Time PHQ-9 Depression Total Score: 0 09/08/19 19 1:00 PM CDT documented as of this encounter Care Teams Sausage Machine Operator Relationship Specialty Start Date End Date Justen Gale MD #2 [facility] [address] [place] [address] PCP - General Family Medicine 10/17/17 documented as of this encounter
--- OUTSIDE RECORDS SUMMARY | 2024-04-26 03:01 | XMS_ITS | Encounter Summary ---
Author Organization [facility] Address [address] [place] [address] Phone Care Team Providers Care Top Waddy Name Role Phone Justen Gale MD Primary Care Provider [phone] Reason for Referral * Radiology Services (Routine) - Closed Specialty Diagnoses / Procedures Referred By Contkristina t Referred To Contact Radiology Diagnoses Early satiety Procedures NM GASTRIC EMPTYING STUDY Nessa Padgett PAC [address] [place] [address] Phone: tel: fax: Referral ID Status Reason Start Date Expiration Date Visits Re quested Visits Authorized [id number] Closed 12/19/2019 1 1 * Other (Routine) - Closed Specialty Diagnoses / Procedures Referred By Contkristina t Referred To Contact Diagnoses Altered bowel function Procedures GASTRO PROCEDURE Nessa Padgett PAC [address] [place] [address] Phone: tel: fax: [address] [place] [address] Phone: tel: fax: Referral ID Status Reason Start Date Expiration Date Visits Re quested Visits Authorized [id number] Closed 12/19/2019 1 10 * Other (Routine) - Closed Specialty Diagnoses / Procedures Referred By Contac t Referred To Contact Gastroenterology Diagnoses Chronic nausea Oropharyngeal dysphagia Procedures GASTRO PROCEDURE Nessa Padgett PAC [address] [place] [address] Phone: tel: fax: Referral ID Status Reason Start Date Expiration Date Visits Re quested Visits Authorized [id number] Closed 12/19/2019 1 11 Reason for Visit * Reason Comments Nausea New Patient Dysphagia Abdominal Pain * Consult, Test & Initiate Treatment (Less Than 4 Weeks) - Closed Specialty Diagnoses / Procedures Referred By Contac t Referred To Contact Gastroenterology Diagnoses Chronic nausea Pili Elkins APRN, SPECIAL EDUCATION PARAEDUCATOR [address] [address] Phone: tel: fax: [facility] - Gastroenterology [facility] [address] [place] [address] Phone: tel: fax: Referral ID Status Reason Start Date Expiration Date Visits Re quested Visits Authorized [id number] Closed 12/03/2019 1 12 Encounter Details Date Type Department Care Team (Latest Contact Info) Description 12/19/2019 3:00 PM CDT Office Visit [facility] - Gastroenterology [facility] [address] [place] [address] Nessa Padgett PAC [address] [place] [address] Oropharyngeal dysphagia (Primary Dx); Chronic nausea; Generalized abdominal pain; Altered bowel function; Early satiety Discharge Disposition: Discharged to home or Selfcare [...] Sign Reading Time Taken Comments Blood Pressure 140/80 12/19/2019 3:13 PM CDT Pulse 84 12/19/2019 3:13 PM CDT Temperature 36.7 ??C (98 ??F) 12/19/2019 3:13 PM CDT Respiratory Rate 20 12/19/2019 3:13 PM CDT Oxygen Saturation 98% 12/19/2019 3:13 PM CDT Inhaled Oxygen Concentration - - Weight 134.3 kg (296 lb) 12/19/2019 3:13 PM CDT Height 154.9 cm (5' 1 ) 12/19/2019 3:13 PM CDT Body Mass Index 55.93 12/19/2019 3:13 PM CDT documented in this encounter Patient Instructions * Patient Instructions* Nessa Padgett, PAC - 12/19/2019 3:00 PM CDT Await testing Try eating several small meals a day consisting of lean protein and non- starchy vegetables (at least 3 x) and low sugar / high fiber fruits no more than twice Natural fibers: all bran/ raisin bran/ fiber one/ oats Fruits such as apples/ pears/ prunes and juices of same Bananas can cause constipation Add generic benefiber daily to help regulate your system, may use up to 3 times a day Probiotic-highest colony count you can afford to purchase on a routine basis Avoid eating 1-2 hours prior to bed Avoid frequent/chronic use of NSAIDs such as ibuprofen/naproxen May use acetaminophen/ (Tylenol) as needed. Avoid fried/ greasy/ spicy foods especially in the evening Reduce caffeine/ carbonated beverages/alcohol/tobacco To continue to provide excellent patient care, you may receive a survey regarding your visit today.To help us serve you better, please complete and return. These surveys are completely anonymous. documented in this encounter Progress Notes * Nessa Padgett PAC - 12/19/2019 3:00 PM CDT PROBLEM LIST: Type 2 diabetes with neuropathy Sleep apnea Morbid obesity Karly Marques is a . 64 y.o. female who presents with Chief Complaint Patient presents with ??? Nausea ??? New Patient ??? Dysphagia ??? Abdominal Pain . HPI/ ROS: Nausea for 2-3 weeks; bm really weird . Reports when she has the urge for a BM she feelsvery sick, shaky, sweaty. Is having nocturnal awakening for BM. Reports while eating gets full easy/ sick when eats which has caused a decrease in appetite. Reports increased belching with urge for BM or eating. Also reports difficulty swallowing feels like food gets stuck about midway down her throat before entering her chest. Has not really paid a lot of attention to what consistencies are worst. Does note that recently she has had some problems with water. EGD- 2 years ago maybe 4-6-18 [facility].Colonoscopy- unknown; GENERAL: Denies fever/ chills/ weight loss/ malaise/ fatigue/ aches/ night sweats. HEENT: Difficulty swallowing. Denies headache/sore throat/hoarseness. NECK: Denies neck pain/ stiffness/ swelling/ masses. LYMPH NODES: Denies enlargement/ swelling/ tenderness. CARDIOVASCULAR: Denies chest pain/ pressure/ heaviness/ tightness/ palpitations/racing heart/ irregular or skipping heart beats PULMONARY: Denies cough/ sob/ wheezing/ dyspnea/ orthopnea. GI: Normal appetite the decreased food tolerance. Gets full early. Nausea more when she tries to eat. Feels ???sick?? with urge for BM. Reports usual stool pattern is a 3-5 on [place] scale. At the time she is feeling ill usually will have a 5 on the [place] scale. Denies abdominal pain/ vomiting/constipation/ diarrhea/ mucus or blood in stools. MUSCULOSKELETAL: Denies back/ muscle/ joint pain SKIN: Denies rash/ itching/ lesions. Denies changes to hair/ nails. ALLERGIES: Allergies Allergen Reactions ??? Cephalosporins Anaphylaxis ??? Oxycodone Unknown ??? Reglan [Metoclopramide Hcl] Unknown ??? Trazodone Other (see Comments) Shaky, restlessness, itching, throat swelling MEDICATIONS: Current Outpatient Medications Medication Sig Dispense Refill [...] 0 ??? Insulin Lispro, 1 Unit Dial, (HUMALOG KWIKPEN) 100 UNIT/ML Solution Pen- injector INJECT 26 UNITS BEFORE EACH MEAL. ISF OF 1:40>140 MG/DL, UP TO 120 UNITS PER DAY DIRECTED 45 mL 2 ??? Insulin Pen Needle (PEN NEEDLES 31GX5/16 ) 31G X 8 MM Misc Use 6 times daily E11.9 300 Each 3 ??? LANTUS SOLOSTAR 100 UNIT/ML Solution Pen-injector INJECT 50 UNITS SUBCUTANEOUSLY EVERY MORNING 45 mL 1 ??? lisinopril (PRINIVIL, ZESTRIL) 20 MG Tablet TAKE 1 TABLET BY MOUTH DAILY 90 Tab 2 ??? Misc. Devices [facility] and instructions: 1 Each 0 ??? ondansetron (ZOFRAN) 4 MG Tablet TAKE 1 TABLET BY MOUTH EVERY 8 HOURS NEEDED FOR NAUSEA 15 Tab 9 ??? ONETOUCH DELICA LANCETS 33G Misc 1 [...] BY MOUTH EVERY NIGHT 90 Tab 3 No current facility-administered medications for this visit. PMS/H: Past Medical History Positives Diagnosis Date ??? Breast cancer (HCC) ??? Diabetes (HCC) ??? DVT (deep venous thrombosis) (HCC) ??? High blood pressure ??? History of pulmonary embolus (PE) ??? Hyperthyroidism ??? Neuropathy ??? Osteoarthritis ??? Restless leg syndrome ??? Sciatica ??? Sleep apnea ??? Spinal stenosis Past Surgical History: Procedure Laterality Date ??? BREAST SURGERY ??? CHOLECYSTECTOMY ??? LAP,INGUINAL HERNIA REPR,INITIAL SOCIAL: Social History Socioeconomic History ??? Marital status: Spouse name: Not on file ??? Number of children: Not on file ??? Years of education: Not on file ??? Highest education level: Not on file Occupational History ??? Not on file Social Needs ??? Financial resource strain: Not on file ??? Food insecurity Worry: Not on file Inability: Not on file ??? Transportation needs Medical: Not on file Non-medical: Not on file Tobacco Use ??? Smoking status: Never Smoker ??? Smokeless tobacco: Never Used Substance and Sexual Activity ??? Alcohol use: No ??? Drug use: No ??? Sexual activity: Never Lifestyle ??? Physical activity Days per week: Not on file Minutes per session: Not on file ??? Stress: Not on file Relationships ??? Social connections Talks on phone: Not on file Gets together: Not on file Attends mandaeism service: Not on file Active member of club or organization: Not on file Attends meetings of clubs or organizations: Not on file Relationship status: Not on file ??? Intimate partner violence Fear of current or ex partner: Not on file Emotionally abused: Not on file Physically abused: Not on file Forced sexual activity: Not on file Other Topics Concern ??? Not on file Social History Narrative ??? Not on file FAMILY HX: Family History Problem Relation Age of Onset ??? Stroke Mother ??? Cancer Father VITAL SIGNS: Vitals: 12/19/19 1513 BP: 140/80 Pulse: 84 Resp: 20 Temp: 98 ??F (36.7 ??C) SpO2: 98% Weight: 296 lb (134.3 kg) Height: 5' 1 (1.549 m) GENERAL EXAM: GENERAL:Well developed, well nourished, in no acute distress. AAO x3. Cooperative. HEENT:Normocephalic. PERRLA. Nonicteric. NECK:Supple/ non tender/ full ROM LYMPH NODES:No adenopathy. CARDIOVASCULAR:RRR/ S1S2/ No m/g/c/r. PULMONARY: Respirations easy and regular. Breath sounds clear bilaterally. No rhonchi/ rales/ wheezes. GI: Abdomen soft, nondistended. Diffuse, generalized tenderness. No rebound, guarding or masses. Body habitus limits the ability to palpate for hepatosplenomegaly. Bowel sounds normoactive. MUSCULOSKELETAL: No CVA tenderness. Full ROM all extremities. No tenderness/ swelling/ crepitus. SKIN: General-warm, pink and dry. No rashes/ lesions. PSYCHIATRIC:Euthymic. Affect congruent with mood. Normal thought process. DIAGNOSIS, PLAN AND FOLLOW UP: Diagnoses and all orders for this visit: Oropharyngeal dysphagia - GASTRO PROCEDURE; Future Chronic nausea - GASTROENTEROLOGY REFERRAL - GASTRO PROCEDURE; Future Generalized abdominal pain Altered bowel function - GASTRO PROCEDURE; Future Early satiety - NM GASTRIC EMPTYING STUDY; Future Treatment plan reviewed. Risks and benefits discussed. Expressed understanding. Patient Instructions Await testing Try eating several small meals a day consisting of lean protein and non- starchy vegetables (at least 3 x) and low sugar / high fiber fruits no more than twice Natural fibers: all bran/ raisin bran/ fiber one/ oats Fruits such as apples/ pears/ prunes and juices of same Bananas can cause constipation Add generic benefiber daily to help regulate your system, may use up to 3 times a day Probiotic-highest colony count you can afford to purchase on a routine basis Avoid eating 1-2 hours prior to bed Avoid frequent/chronic use of NSAIDs such as ibuprofen/naproxen May use acetaminophen/ (Tylenol) as needed. Avoid fried/ greasy/ spicy foods especially in the evening Reduce caffeine/ carbonated beverages/alcohol/tobacco To continue to provide excellent patient care, you may receive a survey regarding your visit today.To help us serve you better, please complete and return. These surveys are completely anonymous. Return for Nausea/abdominal pain/dysphagia after testing as indicated. documented in this encounter Plan of Treatment Upcoming Encounters Date Type Department Care Team (Late st Contact Info) Description 05/17/2024 2:45 PM METAL REED TUNER Office Visit [facility] - Endocrinology [facility] [address] [place] [address] Annel Rod MD [address] [facility] [address] [place] [phone] Scheduled Orders Name Type Priority Associated Diagnoses Orde r Schedule GASTRO PROCEDURE Procedures Routine Chronic nausea Oropharyngeal dysphagia Expected: 06/19/2020 (Approximate), Expires: 12/18/2020 GASTRO PROCEDURE Procedures Routine Altered bowel function Expected: 02/20/2020 (Approximate), Expires: 12/18/2020 documented as of this encounter Results * NM GASTRIC EMPTYING STUDY (01/17/2020) Anatomical Region Laterality Modality GI, Abdomen N/A Other Nessa Padgett PAC IMG NM ORDERABLES Final R esult documented in this encounter Visit Diagnoses Diagnosis Oropharyngeal dysphagia- Primary Dysphagia, oropharyngeal phase Chronic nausea Nausea alone Generalized abdominal pain Abdominal pain, generalized Altered bowel function Other symptoms involving digestive system Early satiety documented in this encounter Additional Health Concerns Assessment Noted Time PHQ-9 Depression Total Score: 0 09/08/19 19 1:00 PM CDT documented as of this encounter Care Teams Top Waddy Relationship Specialty Start Date End Date Justen Gale MD [address] [facility] [address] [place] [address] PCP - General Family Medicine 10/17/17 documented as of this encounter
--- OUTSIDE RECORDS SUMMARY | 2024-04-26 03:01 | XMS_ITS | Encounter Summary ---
Author Organization [facility] Address [address] [place] [address] Phone Care Team Providers Care Business Performance Analyst Name Role Phone Justen Gale MD Primary Care Provider [phone] Encounter Details Date Type Department Care Team (Late st Contact Info) Description 02/11/2020 Refill [facility] - Endocrinology - [place] [address] [place] [address] Annel Rod MD [address] [address] Social History Tobacco Use Types [...] have Coronavirus / COVID-19? No / Unsure 02/11/2020 1:02 PM CDT documented as of this encounter Miscellaneous Notes * Telephone Encounter - Jennifer Wang, RN - 02/11/2020 1:11 PM CDT Refill request received. Order pended. Requested Prescriptions Pending Prescriptions Disp Refills ??? Glucose Blood (ONE TOUCH ULTRA TEST) Strip 400 Strip 3 Sig: Test four times daily. Next appt: 02/24/2020 documented in this encounter Plan of Treatment Upcoming Encounters Date Type Department Care Team (Late st Contact Info) Description 05/17/2024 2:45 PM MACHINE GREASER Office Visit [facility] - Endocrinology - [place] [address] [place] [address] Annel Rod MD [address]2 [facility] [address] [place] [address] documented as of this encounter Visit Diagnoses Not on filedocumented in this encounter Additional Health Concerns Assessment Noted Time PHQ-9 Depression Total Score: 0 09/08/19 19 1:00 PM CDT documented as of this encounter Care Teams Business Performance Analyst Relationship Specialty Start Date End Date Justen Gale MD [address]2 [facility] [address] [place] [address] PCP - General Family Medicine 10/17/17 documented as of this encounter
--- OUTSIDE RECORDS SUMMARY | 2024-04-26 03:01 | XMS_ITS | Encounter Summary ---
Author Organization [facility] [employer] Care Team Providers Care Pen Ruler Operator Name Role Phone Justen Gale MD Primary Care Provider [phone] Encounter Details Date Type Department Care Team (Latest Contact Info) Description 10/16/2019 Travel Social History Tobacco Use Types Packs/Day [...] st Contact Info) Description 05/17/2024 2:45 PM RN PERITONEAL DIALYSIS Office Visit [facility] - Endocrinology - [place] [address] [place] [phone] Annel Rod MD #[address] [facility] [address] [phone] documented as of this encounter Visit Diagnoses Not on filedocumented in this encounter Additional Health Concerns Assessment Noted Time PHQ-9 Depression Total Score: 0 09/08/19 19 1:00 PM CDT documented as of this encounter Care Teams Pen Ruler Operator Relationship Specialty Start Date End Date Justen Gale MD [address] [place] [address] PCP - General Family Medicine 10/17/17 documented as of this encounter
--- OUTSIDE RECORDS SUMMARY | 2024-04-26 03:01 | XMS_ITS | Encounter Summary ---
Author Organization [facility] Address [address] [place] [address] Phone Care Team Providers Care Walking Dragline Oiler Name Role Phone Justen Gale MD Primary Care Provider [phone] David Roberts APRN, FINISH ROLLS OPERATOR Unavailable [phone] Annel Rod MD Unavailable Reason for Visit * Reason Comments Medication Refill Encounter Details Date Type Department Care Team (Late st Contact Info) Description 02/07/2020 Refill [facility] [address] [place] [address] Justen Gale MD [address] [address] Medication Refill Social History Tobacco Use Types [...] Telephone Encounter - Justen Gale MD - 02/07/2020 3:56 PM CDT Prescription approved. Please call in documented in this encounter Plan of Treatment Upcoming Encounters Date Type Department Care Team (Late st Contact Info) Description 05/17/2024 2:45 PM TEST FIXTURE ASSEMBLER Office Visit [facility] - Endocrinology - [place] [address] [place] [address] Annel Rod MD #[address] [phone] documented as of this encounter Visit Diagnoses Not on filedocumented in this encounter Additional Health Concerns Assessment Noted Time PHQ-9 Depression Total Score: 0 09/08/19 19 1:00 PM CDT documented as of this encounter Care Teams Walking Dragline Oiler Relationship Specialty Start Date End Date Justen Gale MD #[address] [address] PCP - General Family Medicine 10/17/17 David Roberts APRN, FINISH ROLLS OPERATOR [address] [place] [address] Nurse Practitioner Advanced Practice Nurse 01/31/22 Annel Rod MD #[address] [place] [phone] Consulting Physician Endocrinology 07/01/22 documented as of this encounter
--- OUTSIDE RECORDS SUMMARY | 2024-04-26 03:01 | XMS_ITS | Encounter Summary ---
Author Organization [facility] Address [address] [place] [address] Phone Care Team Providers Care Medical Record Consultant Name Role Phone Justen Gale MD Primary Care Provider [phone] Reason for Referral * Consult, Test & Initiate Treatment (Less Than 4 Weeks) - Closed Specialty Diagnoses / Procedures Referred By Contkristina t Referred To Contact Gastroenterology Diagnoses Chronic nausea Pili Elkins APRN, PILE DRIVER OPERATOR HELPER [address] [address] Phone: tel: fax: [facility] - Gastroenterology [facility] [address] [place] [address] Phone: tel: fax: Referral ID Status Reason Start Date Expiration Date Visits Re quested Visits Authorized [id number] Closed 12/03/2019 1 12 Scheduling Instructions Karly is being referred for chronic nausea, diabetic, hx of cholesectomy. See below for Karly's current medications, allergies [...] DAY DIRECTED, Disp: 45 mL, Rfl: 2 Insulin Pen Needle (PEN [...] NAUSEA, Disp: 15 Tab, Rfl: 9 ondansetron (ZOFRAN) 4 MG Tablet, Take 1 Tab by mouth every 8 hours as needed for Nausea - 1st line., Disp: 15 Tab, Rfl: 0 ONETOUCH DELICA LANCETS 33G Misc, 1 Lancet [...] Referred By Elyssa t Referred To Contact Sleep Center Diagnoses LUL (obstructive sleep apnea) Pili Elkins APRN, PILE DRIVER OPERATOR HELPER #[address] [address] Phone: tel: fax: [facility] [address] [place] [address] Phone: tel: fax: Referral ID Status Reason Start Date Expiration Date Visits Re quested Visits Authorized [id number] Closed 12/03/2019 1 1 Scheduling Instructions Sleep Study Being Requested: CPAP Karly is being referred for hx of sleep apnea, needs her cpap evaluated for adjustment of pressure. See below for Karly's current medications, allergies [...] DAY DIRECTED, Disp: 45 mL, Rfl: 2 Insulin Pen Needle (PEN [...] Disp: 90 Tab, Rfl: 2 Misc. Devices [facility] and instructions:, Disp: 1 Each, Rfl: 0 ondansetron (ZOFRAN) 4 MG Tablet, TAKE 1 TABLET BY MOUTH EVERY 8 HOURS NEEDED FOR NAUSEA, Disp: 15 Tab, Rfl: 9 ondansetron (ZOFRAN) 4 MG Tablet, Take 1 Tab by mouth every 8 hours as needed for Nausea - 1st line., Disp: 15 Tab, Rfl: 0 ONETOUCH DELICA LANCETS 33G Misc, 1 Lancet [...] Reason for Visit * Reason Comments Nausea Gas Mole R arm Obstructive Sleep Apnea wants new sleep study for C-pap Encounter Details Date Type Department Care Team (Late st Contact Info) Description 12/03/2019 11:00 AM CDT Office Visit [facility] - Family [facility] [address] [place] [address] Pili Elkins APRN, NETTA [address] [address] Type 2 diabetes mellitus with diabetic polyneuropathy, with long-term current use of insulin ([facility]) (Primary Dx); Chronic nausea; Change in skin mole; LUL (obstructive sleep apnea) Discharge Disposition: Discharged [...] Sign Reading Time Taken Comments Blood Pressure 128/82 12/03/2019 11:06 AM CDT Pulse 78 12/03/2019 11:06 AM CDT Temperature 36.7 ??C (98 ??F) 12/03/2019 11:06 AM CDT Respiratory Rate 18 12/03/2019 11:06 AM CDT Oxygen Saturation 98% 12/03/2019 11:06 AM CDT Inhaled Oxygen Concentration - - Weight 137 kg (302 lb) 12/03/2019 11:06 AM CDT Height 154.9 cm (5' 1 ) 12/03/2019 11:06 AM CDT Body Mass Index 57.06 12/03/2019 11:06 AM CDT documented in this encounter Progress Notes * Bianca Pulido RMA - 12/03/2019 11:00 AM CDT Karly Winston Marques, 64 y.o., female is here for Nausea, Gas, Mole (R arm), and Obstructive Sleep Apnea (wants new sleep study for C-pap) Medication Refills: Patient reports/denies need for medication refills. Orders Pended: yes Requested Prescriptions No prescriptions requested or ordered in this encounter Home Medications Medication Sig Start Date End Date Taking? Authorizing Provider amitriptyline (ELAVIL) 10 MG Tablet Take 10 mg by mouth nightly. ProviderTyler MD amitriptyline (ELAVIL) 25 MG Tablet 02/18/19 Yes [...] mg by mouth daily. Yes ProviderTyler MD gabapentin (NEURONTIN) 300 MG Capsule Take 1 Cap by mouth 3 times daily. Patient not taking: Reported on 09/05/2019 02/27/18 Justen Gale MD Glucose Blood (ONE TOUCH ULTRA TEST) Strip Test four times daily. 01/19/18 Yes Annel Rod MD HYDROcodone-acetaminophen (NORCO) 7.5-325 MG Tablet TK 1 T PO QID PRN. DO NOT FILL UNTIL Yes Tyler Smith MD Insulin Lispro, 1 Unit Dial, (HUMALOG KWIKPEN) 100 UNIT/ML Solution Pen-injector INJECT 26 UNITS BEFORE EACH MEAL. ISF OF 1:40>140 MG/DL, UP TO 120 UNITS PER DAY DIRECTED 11/18/19 Yes Annel Rod MD Insulin Pen Needle (PEN NEEDLES 31GX5/16 ) 31G X 8 MM Misc Use 6 times daily E11.9 10/27/18 Yes Justen Gale MD LANTUS SOLOSTAR 100 UNIT/ML Solution Pen-injector INJECT 50 UNITS SUBCUTANEOUSLY EVERY MORNING 09/11/19 Yes Annel Rod MD lidocaine (LIDODERM) 5 % Patch PLACE 1 PATCH ONTO THE SKIN D FOR 30 DAYS. REMOVE AND DISCARD PATCH WITHIN 12 HOURS OR UTD BY 12/12/18 Tyler Smith MD lisinopril (PRINIVIL, ZESTRIL) 20 MG Tablet TAKE 1 TABLET BY MOUTH DAILY 09/30/19 Yes Justen Gale MD [facility] Devices [facility] Supply and instructions: 02/25/19 Justen Gale MD ondansetron (ZOFRAN) 4 MG Tablet TAKE 1 TABLET BY MOUTH EVERY 8 HOURS NEEDED FOR NAUSEA 08/07/19 Yes Justen Gale MD ondansetron (ZOFRAN) 4 MG Tablet Take 1 Tab by mouth every 8 hours as needed for Nausea - 1st line.09/04/19 Justen Gale MD ONETOUCH DELICA LANCETS 33G [facility] 1 Lancet by Does not apply route [...] Exam 1956 ??? Pneumococcal Immunization (0-64 years) ( - PPSV23) 1962 ??? Pap Smear 1977 ??? Mammogram 2006 ??? Zoster Immunization (1 of 2) 2006 Orders Pended: no The following BPA's have been addressed with the patient today: Pap mammogram pneumonia Pneumonia is a serious lung infection that [...] Primary Care Physician???s office or your localpharmacy. * Pili Elkins APN, PILE DRIVER OPERATOR HELPER - 12/03/2019 11:00 AM CDT Chief Complaint: Chief Complaint Patient presents with ??? Nausea ??? Gas ??? Mole R arm ??? Obstructive Sleep Apnea wants new sleep study for C-pap Subjective: Ms. Karly Marques is a 64 y.o. female here today for above. Patient reports she noted a change in the mole for right arm. She reports that is getting larger, bleeding, and becoming raised. No changes in color. Patient would like to be referred to have removed. Patient reports that she also believes she needs a new sleep apnea test. Patient reports she was diagnosed with severe obstructive sleep apnea. Patient currently has a CPAP that is at 12. She reportsthat her last sleep study was 10 years ago. Patient reports that she has been waking up gasping forair again. Patient also reports daytime fatigue. Patient also requesting handicap placard to be filled out. Patient reports that she suffers from neuropathy and chronic low back pain. She reports that she is unable to ambulate over 200 ft without acane and stopping to rest. Patient has had a handicap placard in the past. Patient reports that she has been dealing with nausea and bloating for several months. Patient reports that she feels nauseated after she eats approximately 60% of the time. Patient reports that she gets full quickly and then she will have nausea off and on all day. She reports that it does not seem to be specific types of foods. She also reports she has a lot of gas. Patient also reports that she has been having intermittent diarrhea and constipation. Patient reports that she did talk to her audit officer about this and he is concerned that she may have gastroparesis due to her type 2 diabetes. Patient states that she was prescribed Zofran in the past and that did help. Patient is interested in seeing therapeutic massage technician. Patient has a previous history of cholecystectomy. She denies symptoms of heartburn, vomiting, blood in her stool, or dark tarry stool. Patient does not drink alcohol. ROS: Review of Systems Constitutional: Positive for appetite change and fatigue. Negative for activity change, chills, diaphoresis and fever. Eyes: Negative for pain and redness. Respiratory: Positive for apnea. Negative for cough, chest tightness, shortness of breath and wheezing. Cardiovascular: Negative for chest pain and palpitations. Gastrointestinal: Positive for constipation, diarrhea and nausea. Negative for abdominal distention, abdominal pain, blood in stool and vomiting. Musculoskeletal: Positive for back pain and gait problem (due to neuropathy and arthritis). Skin: Negative for rash and wound. Change in mole Neurological: Positive for numbness (bLE, due to neuropathy). Negative for dizziness, syncope, weakness and headaches. VITAL SIGNS: BP Readings from Last 3 Encounters: 12/03/19 128/82 11/18/19 122/74 04/15/19 126/66 Wt Readings from Last 3 Encounters: 12/03/19 302 lb (137 kg) 11/18/19 300 lb (136.1 kg) 11/14/18 291 lb (132 kg) Vitals: 12/03/19 1106 BP: 128/82 Pulse: 78 Resp: 18 Temp: 98 ??F (36.7 ??C) TempSrc: Temporal SpO2: 98% Weight: 302 lb (137 kg) Height: 5' 1 (1.549 m) Body mass index is 57.06 kg/m??. PHYSICAL EXAM: Physical Exam Vitals signs [...] No oropharyngeal exudate or posterior oropharyngeal erythema. Tonsils: 3+ on the right. 3+ on the left. Eyes: Pupils: Pupils are equal, round, and [...] General: No deformity or signs of injury. Right lower leg: No edema. Left lower leg: No edema. Skin: General: Skin is warm and dry. Capillary Refill: Capillary refill takes less than 2 seconds. Findings: Lesion (appearance of a filiform wart of the right forearm) present. Neurological: General: No focal deficit present. Mental Status: She is alert and oriented to person, place, and time. Gait: Gait abnormal (antalgic gait ). Psychiatric: Mood and Affect: Mood normal. Behavior: Behavior normal. Thought Content: Thought content normal. Judgment: Judgment normal. Labs/Studies Reviewed: Lab Results Component Value Date [...] HDLCHOLESTE 50.9 04/23/2019 LDL 134 (H) 04/23/2019 No results found for: PSASCREEN, PSA, PSAFREE, PSAPCNTFREE, PSATOTAL No results found. Recent Procedure Details No resulted procedures found. Assessment/Plan: Diagnoses and all orders for this visit: Type 2 diabetes mellitus with diabetic polyneuropathy, with long-term current use of insulin (HCC) Chronic nausea - GASTROENTEROLOGY REFERRAL; Future Change in skin mole LUL (obstructive sleep apnea) - SLEEP STUDY REFERRAL; Future Will send patient for repeat sleep study she may need her settings adjusted. I have also discussed her case with Dr. gustafson who will remove her mole in the office today for an appointment. Handcharleen bueno paperwork completed and will male in for patient. After discussion with the patient will go ahead and refer her to GI to rule out gastroparesis. Patient may also benefit from an EGD. FOLLOWUP: Follow-up Information Return if symptoms worsen [...] given to the patient. Patient (or patient policy services representative) demonstrates verbal understanding of instructions given. [...] our referral team or the referring physician. documented in this encounter Plan of Treatment Upcoming Encounters Date Type Department Care Team (Late st Contact Info) Description 05/17/2024 2:45 PM ELECTRICAL PROSPECTING OBSERVER Office Visit [facility] - Endocrinology [facility] [address] [place] [address] Annel Rod MD #[address] [address] Scheduled Referrals Name Type Priority Associated Diagnoses Order Schedule SLEEP STUDY REFERRAL Outpatient Referral Routine LUL (obstructive sleep apnea) Expected: 06/03/2020, Expires: 2021 GASTROENTEROLOGY REFERRAL Outpatient Referral Less Than 4 weeks Chronic nausea Expected: 12/03/2019, Expires: 03/02/2020 documented as of this encounter Visit Diagnoses Diagnosis Type 2 diabetes mellitus with diabetic polyneuropathy, with long-term current use of insulin ([facility])- Primary Chronic nausea Nausea alone Change in skin mole Benign neoplasm of skin, site unspecified LUL (obstructive sleep apnea) Obstructive sleep apnea (adult) (pediatric) documented in this encounter Additional Health Concerns Assessment Noted Time PHQ-9 Depression Total Score: 0 09/08/19 19 1:00 PM CDT documented as of this encounter Care Teams Medical Record Consultant Relationship Specialty Start Date End Date Justen Gale MD [address]2 [facility] [address] [place] [address] PCP - General Family Medicine 10/17/17 documented as of this encounter
--- OUTSIDE RECORDS SUMMARY | 2024-04-26 03:01 | XMS_ITS | Encounter Summary ---
Author Organization [facility] [employer] Care Team Providers Care Bsa/Aml Compliance Officer Name Role Phone Justen Gale MD Primary Care Provider [phone] Encounter Details Date Type Department Care Team (Latest Contact Info) Description 12/27/2019 Travel Social History Tobacco Use Types Packs/Day [...] Contact Info) Description 05/17/2024 2:45 PM ART STUDIO TEACHER Office Visit [facility] - Endocrinology - [place] [address] [place] [address] Annel Rod MD [address] [address] documented as of this encounter Visit Diagnoses Not on filedocumented in this encounter Additional Health Concerns Assessment Noted Time PHQ-9 Depression Total Score: 0 09/08/19 19 1:00 PM CDT documented as of this encounter Care Teams Bsa/Aml Compliance Officer Relationship Specialty Start Date End Date Justen Gale MD [address] [place] [address] PCP - General Family Medicine 10/17/17 documented as of this encounter
--- OUTSIDE RECORDS SUMMARY | 2024-04-26 03:01 | XMS_ITS | Encounter Summary ---
Author Organization [facility] Address [address] [place] [address] Phone Care Team Providers Care Cutting Torch Operator Name Role Phone Justen Gale MD Primary Care Provider [phone] Reason for Visit * Reason Onset Date Comments Low Blood Sugar 10/30/2019 Encounter Details Date Type Department Care Team (Late st Contact Info) Description 10/30/2019 Nurse Triage [facility] [address] [place], [place] [id number] Justen Gale MD [address] [address] Low Blood Sugar Social History Tobacco Use [...] encounter Miscellaneous Notes * Telephone Encounter - Heaven Flores RN - 11/04/2019 2:38 PM CDT Televisit 11/05/19 at 4:45 for nausea * Telephone Encounter - Pili Elkins APN, CNP - 11/01/2019 7:39 AM CDT She can have a telephone visit * Telephone Encounter - Jennifer Kumari RN - 10/31/2019 11:48 AM CDT Patient is aware and verbalizes understanding. Patient answered yes to being in close contact with covid 19 patient within 14 days of symptom onset. Patient daughter was positive for covid 19 on 10/16/2019, at time of call patient has been out ofquarantine for 2 days. Please advise on ov. Patient does not have a [employer] account to do a video visit. Screening tool for the Novel Coronavirus (2019-nCoV ): Patient has fever?No Patient has symptoms of cough, shortness of breath, or sore throat? No Has patient recently traveled internationally in the last month ? No (If yes to fever OR cough OR shortness of breath OR sore throat AND travel question transfer to triage nurse). Has the patient been in close contact with a suspected or laboratory confirmed 2019 nCoV Coronavirus patient within 14 days of symptom onset ? Yesyes (If yes to fever OR cough OR shortness of breath OR sore throat AND exposure transfer to triage nurse). (Document both positive and negative responses) * Telephone Encounter - Pili Elkins APN, CNP - 10/30/2019 5:00 PM CDT Schedule OV * Telephone Encounter - Jennifer Kumari RN - 10/30/2019 10:44 AM CDT SITUATION: Patient reports low blood sugar, nausea and hot flashes. Patient states she just come out quarnatine after her daughter tested positive for covid 19. Patient tries to eat due to being nauseated. Patient asking to be retested for covid 19. Patient did test negative for covid on 10/22/2019. Patient reports hx of thyroid, and cancer. Patient is not sure why she if having the low sugar. Fasting blood sugar 136 today 10/30/2019. Per guidelines patient is to discuss with provider and call back by nurse. Please advise. BACKGROUND: 10/23/2019 ASSESSMENT: Symptom Description / Location: low blood sugar 68 approx 10/25/2019, hot flashes and nausea Pain (0-10): denies Temp: denies Treatment / Response: if lying down will sit up LMP / / : postmenopausal RECOMMENDATION: See care advice and disposition for Guideline First positive answer recorded, all responses to prior questions were negative. If symptoms increase, change or if new symptoms develop, call your HCP or call back. Recommendations were based on caller information and is not a diagnosis. Verified and reviewed all triage information with caller. Reason for Disposition ? ? Morning (before breakfast) blood glucose < 80 mg/dl (4.5 mmol/L) and more than once in past week Protocols used: DIABETES - LOW BLOOD SUGAR-A-OH documented in this encounter Plan of Treatment Upcoming Encounters Date Type Department Care Team (Late st Contact Info) Description 05/17/2024 2:45 PM CHILDCARE ATTENDANT Office Visit [facility] - Endocrinology - [place] [address] [place] [address] Annel Rod MD #[address] [id number] documented as of this encounter Visit Diagnoses Not on filedocumented in this encounter Additional Health Concerns Assessment Noted Time PHQ-9 Depression Total Score: 0 09/08/19 19 1:00 PM CDT documented as of this encounter Care Teams Cutting Torch Operator Relationship Specialty Start Date End Date Justen Gale MD #[address] [address] PCP - General Family Medicine 10/17/17 documented as of this encounter
--- OUTSIDE RECORDS SUMMARY | 2024-04-26 03:01 | XMS_ITS | Encounter Summary ---
Author Organization [facility] [employer] Care Team Providers Care Technical Testing Engineer Name Role Phone Justen Gale MD Primary Care Provider [phone] Encounter Details Date Type Department Care Team (Latest Contact Info) Description 02/11/2020 Travel Social History Tobacco Use Types Packs/Day [...] st Contact Info) Description 05/17/2024 2:45 PM MOBILE DESIGNER Office Visit [facility] - Endocrinology - [place] [address] [place] [address] Annel Rod MD [address] [address] documented as of this encounter Visit Diagnoses Not on filedocumented in this encounter Additional Health Concerns Assessment Noted Time PHQ-9 Depression Total Score: 0 09/08/19 19 1:00 PM CDT documented as of this encounter Care Teams Technical Testing Engineer Relationship Specialty Start Date End Date Justen Gale MD [address] [place] [address] PCP - General Family Medicine 10/17/17 documented as of this encounter
--- OUTSIDE RECORDS SUMMARY | 2024-04-26 03:01 | XMS_ITS | Encounter Summary ---
Author Organization [facility] Address [address] [place] [address] Phone Care Team Providers Care Insulation Cupola Operator Name Role Phone Justen Gale MD Primary Care Provider [phone] Reason for Referral * Radiology Services (Routine) - Closed Specialty Diagnoses / Procedures Referred By Elyssa benavides Referred To Contact Radiology Diagnoses Type 2 diabetes mellitus with diabetic polyneuropathy, with long-term current use of insulin (HCC) Thyroid nodule Procedures US THYROID/NECK Annel Rod MD #2 [facility] [address] [place] [address] Phone: tel: fax: Referral ID Status Reason Start Date Expiration Date Visits Re quested Visits Authorized [id number] Closed 11/18/2019 1 1 Reason for Visit * Reason Comments Diabetes Mellitus Follow up * Consult, Test & Initiate Treatment (Routine) - Canceled Specialty Diagnoses / Procedures Referred By Elyssa benavides Referred To Contact Endocrinology Diagnoses Type 2 diabetes mellitus with diabetic polyneuropathy, with long-term current use of insulin (HCC) Justen Gale MD #2 [facility] [address] [place] [address] Phone: tel: fax: Annel Rod MD #[address] [address] Phone: tel: fax: Referral ID Status Reason Start Date Expiration Date V isits Requested Visits Authorized [id number] Canceled 07/17/2019 1 11 Encounter Details Date Type Department Care Team (Late st Contact Info) Description 11/18/2019 2:00 PM CDT Office Visit [facility] - End[facility]ology - [place] #2 [place] [address] Annel Rod MD #[address] [address] Type 2 diabetes mellitus with diabetic polyneuropathy, with long-term current use of insulin ([facility]) (Primary Dx); Thyroid nodule; Class 3 severe obesity due to excess calories with serious comorbidity and body mass index (BMI) of 50.0 to 59.9 in adult (HCC); Hypoglycemia Discharge Disposition: Discharged to home or [...] Sign Reading Time Taken Comments Blood Pressure 122/74 11/18/2019 2:13 PM CDT Pulse 96 11/18/2019 2:13 PM CDT Temperature 36.2 ??C (97.2 ??F) 11/18/2019 2:13 PM CD T Respiratory Rate 18 11/18/2019 2:13 PM CDT Oxygen Saturation 96% 11/18/2019 2:13 PM CDT Inhaled Oxygen Concentration - - Weight 136.1 kg (300 lb) 11/18/2019 2:13 PM CDT Height 154.9 cm (5' 1 ) 11/18/2019 2:13 PM CDT Body Mass Index 56.68 11/18/2019 2:13 PM CDT documented in this encounter Patient Instructions * Patient Instructions* Annel Rod MD - 11/18/2019 2:00 PM CDT Please check thyroid function test and Hb A1c Arrangement will be made for thyroid ultrasound Additional steps in management to be determined once result is available for review Please take Lantus 50 units in the morning ?? Please take Humalog 26 units before each meal ?? Please use correctional factor insulin before each meal as directed ?? Please monitor blood sugar before each meal and at bedtime ?? Please bring blood sugar log for review [...] Progress Notes * Annel Rod MD - 11/18/2019 2:00 PM CDT CC: Hyperglycemia Karly Marques is a 64-year-old woman who comes to the Endocrinology office to discuss management of type 2 diabetes mellitus. The patient's diabetes is complicated by lower extremity sensory neuropathy. Other pertinent health history includes hypertension, dyslipidemia, statin intolerance, and obesity. The patient was initially diagnosed with diabetes approximately 8 years ago. Presently, Ms. Marques takes Lantus 50 units in the morning, Humalog 24 units with breakfast, 24 units with lunch, and 26 units with supper for management of hyperglycemia. The patient reports occasional, mild hypoglycemic events with intact symptoms of hypoglycemia awareness. Most episodes occur with physical activity. The patient denied severe low blood sugar events requiring third libertarian intervention. Review of her capillary blood glucose log for the past two weeks showed morning values in the range of 110 to 140 mg/dL, lunch values ranging from 71 to 180 mg/dL, dinner values in the range of 60 to 200 mg/dL, and bedtime values ranging from 96 to 140 mg/dL. Hemoglobin A1c obtained in May 2019 was 7.4%. ?? The patient was diagnosed with multinodular goiter approximately 5 years ago. Fine needle aspiration biopsy performed in 2018 was consistent with benign nodules. ?? Diabetes related complication surveillance 1. No history of diabetic retinopathy - the last dilated eye exam was in July 2018 2. (+) symptoms of peripheral sensory neuropathy 3. Urine microalbumin/creatinine ratio - not available 4. BP 122/74 mmHg 5. LDL - 134 mg/dL in March 2019 6. No history of macrovascular disease Review of Systems Constitutional: Negative for activity change, appetite change, and unexpected weight change. (+) weight gain HENT: Negative for congestion and sinus pressure. Eyes: Negative for pain and visual disturbance. Respiratory: Negative for cough and shortness of breath. Cardiovascular: Negative for chest pain and palpitations. Gastrointestinal: Negative for diarrhea, constipation and abdominal distention. Positive for intermittent nausea and bloating Endocrine: Negative for polydipsia, polyphagia and polyuria. Past Medical History Positives Diagnosis Date ??? Breast cancer (HCC) ??? Diabetes (HCC) ??? DVT (deep venous thrombosis) (HCC) ??? High blood pressure ??? History of pulmonary embolus (PE) ??? Hyperthyroidism ??? Neuropathy ??? Osteoarthritis ??? Restless leg syndrome ??? Sciatica ??? Sleep apnea ??? Spinal stenosis Past Surgical History: Procedure Laterality Date ??? BREAST SURGERY ??? CHOLECYSTECTOMY ??? LAP,INGUINAL HERNIA REPR,INITIAL Vitals: 11/18/19 1413 BP: 122/74 BP Location: Right Arm BP Position: Sitting BP Cuff Size: Large Pulse: 96 Resp: 18 Temp: 97.2 ??F (36.2 ??C) TempSrc: Tympanic SpO2: 96% Weight: 300 lb (136.1 kg) Height: 5' 1 (1.549 m) Objective: Physical Exam Constitutional: appears well-developed and well-nourished. No acute distress. Head: Normocephalic and atraumatic. Eyes: EOM are biju, Not icteric Neck: Normal range of motion, Neck supple, No noticeable or palpable swelling, redness or rash Lymph Node: No cervical, clavicular, or posterior auricular lymphadenopathy Cardiovascular: Normal rate and regular rhythm, No JVD Pulmonary/Chest: Effort normal and breath sounds normal, No use of accessory muscle, No crackles orwheezing Abdominal: Soft, and not tender, Normal bowel sound, No lipohyperthrophy at injection sites Musculoskeletal: Normal range of motion, LE edema, No swollen or erythematous joints, No cyanosis or clubbing Neurological: Alert and oriented to person, place, and time, CN 2-12 grossly intact Skin: Skin is warm and dry, No rash noted. Psychiatric: Normal mood and affect. Judgment normal. Intact memory for recent and remote events DIAGNOSTIC DATA: Hb A1c checked in May 2019 was 7.4%. Lab Results Component Value Date HGBA1C 8.1 (H) 04/26/2019 HGBA1C 7.9 01/23/2018 HGBA1C 7.7 (H) 01/17/2018 Lab Results Component Value Date HEMATOCRIT 40.9 07/26/2019 Lab Results Component Value Date CREATININE 0.74 07/26/2019 GFRNA >60 07/26/2019 CALCIUM 9.7 07/26/2019 SGPTALT 20 07/26/2019 Lab Results Component Value Date SODIUM 138 07/26/2019 POTASSIUM 4.6 07/26/2019 CHLORIDE 100 07/26/2019 CO2VEN 27 07/26/2019 MAGNESIUM 1.8 01/08/2018 Lab Results Component Value Date CHOLESTEROL 216 (H) 04/23/2019 TRIGLYCRIDES 154 (H) 04/23/2019 HDLCHOLESTE 50.9 04/23/2019 LDL 134 (H) 04/23/2019 Lab Results Component Value Date TSH 3.960 07/26/2019 Assessment and Plan Karly Marques is a middle-aged woman with type 2 diabetes mellitus whose glycemic control was suboptimal based on review of her capillary blood glucose report. Variable glycemic control is most likely due to inconsistent CHO intake. Treatment consideration and hypoglycemic precaution were discussed with her at some length. She will reduce Humalog by 20% before meal in anticipation of physicalactivity. Ms. Marques will take Humalog 26 units before each meal and continue Lantus 50 units in the morning for management of hyperglycemia. The patient will return for office reevaluation in 3 months. PLAN: 1. Take Lantus 50 units in the morning 2. Change Humalog to 26 units before each meal 3. Correctional factor insulin dosed at 1:15 if CBG is > 140 mg/dl 4. Monitor blood sugar QAC/QHS 5. Bring CBG log for review 6. Contact Endocrinology Clinic for low blood sugar events 7. Check Hb A1c 8. RTC in 3 months Goiter PLAN: 1. Arrange thyroid ultrasound 2. Further plan based on #1 Hypoglycemia PLAN: 1. Consistent CHO diet 2. Rule of 15 Obesity PLAN: 1. Low carb and calorie diet 2. Avoid snack and beverage between meal and at bedtime Annel Rod MD 11/18/2019 documented in this encounter Plan of Treatment Upcoming Encounters Date Type Department Care Team (Late st Contact Info) Description 05/17/2024 2:45 PM APPRAISER ART Office Visit [facility] - Endocrinology - [place] [address] [place] [address] Annel Rod MD #[address] [phone] Scheduled Orders Name Type Priority Associated Diagnoses Orde r Schedule HEMOGLOBIN A1C W/ ESTIMATED GLUCOSE Lab Routine Type 2 diabetes mellitus with diabetic polyneuropathy, with long-term current use of insulin (HCC) Thyroid nodule Expected: 02/17/2020, Expires: 03/19/2020 UR MICROALBUMIN/CREATININE RATIO RANDOM Lab Routine Type 2 diabetes mellitus with diabetic polyneuropathy, with long-term current use of insulin (HCC) Expected: 02/17/2020, Expires: 03/19/2020 documented as of this encounter Results * US THYROID/NECK (12/09/2019 [...] AM T: ??12/10/2019 10:10 AM Report ID: [id number] Reading Location: ??[id number] Procedure Note Cleo Garza MD - 12/10/2019 [...] Electronically signed by Cleo Garza BG: BG Report ID: [id number] Reading Location: [place] [address] IMPRESSION: Unchanged 2.8 cm nodule within the inferior right thyroid lobe. Interval decreased size of a now 1.3 cm nodule within the inferior left thyroid lobe, previously 2.1 cm. Additional findings as above us Annel Rod MD [facility] US ORDERABLES Final Result documented in this encounter Visit Diagnoses Diagnosis Type 2 diabetes mellitus with diabetic polyneuropathy, with long-term current use of insulin (HCC)- Primary Thyroid nodule Nontoxic uninodular goiter Class 3 severe obesity due to excess calories with serious comorbidity and body mass index (BMI) of 50.0 to 59.9 in adult (HCC) Hypoglycemia Hypoglycemia, unspecified Type 2 diabetes mellitus with diabetic polyneuropathy, with long-term current use of insulin (HCC) Thyroid nodule Nontoxic uninodular goiter documented in this encounter Additional Health Concerns Assessment Noted Time PHQ-9 Depression Total Score: 0 09/08/19 19 1:00 PM CDT documented as of this encounter Care Teams Insulation Cupola Operator Relationship Specialty Start Date End Date Justen Gale MD #[address] [address] PCP - General Family Medicine 10/17/17 documented as of this encounter
--- OUTSIDE RECORDS SUMMARY | 2024-04-26 03:01 | XMS_ITS | Encounter Summary ---
Author Organization [facility] Address [address] [place] [address] Phone Care Team Providers Care Refinisher Name Role Phone Justen Gale MD Primary Care Provider [phone] Reason for Visit * Reason Onset Date Comments Results 12/20/2019 Encounter Details Date Type Department Care Team (Late st Contact Info) Description 12/20/2019 Telephone [facility] - Endocrinology - [place] #2 [place] [address] Annel Rod MD #[address] [address] Results Social History Tobacco Use [...] Telephone Encounter - Jennifer Wang RN - 12/20/2019 2:07 PM CDT Patient informed. Verbalizes understanding. * Telephone Encounter - Jennifer Wang RN - 12/20/2019 10:30 AM CDT Voicemail left for patient to return call. * Telephone Encounter - Annel Rod MD - 12/20/2019 10:18 AM CDT Please inform her that thyroid ultrasound test result was stable compared to her prior study. documented in this encounter Plan of Treatment Upcoming Encounters Date Type Department Care Team (Late st Contact Info) Description 05/17/2024 2:45 PM COMPUTER LAB PARA PROFESSIONAL Office Visit [facility] - Endocrinology - [place] #[address] [place] [address] Annel Rod MD #2 [facility] [address] [place] [address] documented as of this encounter Visit Diagnoses Not on filedocumented in this encounter Additional Health Concerns Assessment Noted Time PHQ-9 Depression Total Score: 0 09/08/19 19 1:00 PM CDT documented as of this encounter Care Teams Refinisher Relationship Specialty Start Date End Date Justen Gale MD #2 [facility] [address] [place] [address] PCP - General Family Medicine 10/17/17 documented as of this encounter
--- OUTSIDE RECORDS SUMMARY | 2024-04-26 03:02 | XMS_ITS | Encounter Summary ---
Author Organization [facility] Address [address] [place] [address] Phone Care Team Providers Care Management Aide Name Role Phone Justen Gale MD Primary Care Provider [phone] Reason for Visit * Reason Onset Date Comments Constipation 07/17/2019 Nausea 07/17/2019 Encounter Details Date Type Department Care Team (Late st Contact Info) Description 07/17/2019 Nurse Triage [facility] [address] [place] [address] Justen Gale MD #[address] [address] Constipation; Nausea Social History Tobacco Use Types Packs/Day [...] have Coronavirus / COVID-19? No / Unsure 07/17/2019 8:48 PM CDT documented as of this encounter Miscellaneous Notes * Telephone Encounter - Norma Peterson RN - 07/17/2019 9:48 PM CDT SITUATION (caller perception/concerns): patient calling about having constipation and nausea BACKGROUND (events leading up to call): Patient stated she is miserable and not emptying out at all History : Hypertension, constipation ASSESSMENT: Onset: 4 to 5 days ago Symptoms: I just had two bowel movements and they were little bitty marbles. I am not getting emptied out. I have been taking Miralax for 2 days now and feeling miserable. Denies chest pain, abdominal pain, vomiting,loss of consciousness, headache, high blood pressure,rectal pain or bleeding, Pain: not pain - just feels very full Ability to perform daily activities:able Temp (route, time): denies Other Symptoms: see above Treatment with response: Yesterday morning I had a really small bowel movement. Today had two very small amounts out. RN advised using a suppository to help stimulate the anus to empty . RN advised Dulcolax Liquid to take to stimulate the RECOMMENDATION: See PCP within 2 weeks See care advice and disposition for guideline. [...] utilized. Reason for Disposition ? ? [1] Uses laxative (e.g., PEG / Miralax. Milk of magnesia) or enema AND [2] > once a month Protocols used: [id number] documented in this encounter Plan of Treatment Upcoming Encounters Date Type Department Care Team (Late st Contact Info) Description 05/17/2024 2:45 PM TRADE SHOW SPECIALIST Office Visit [facility] - [facility]ology - [place] [address] [place] [phone] [facility] [address] [place] [address] documented as of this encounter Visit Diagnoses Not on filedocumented in this encounter Additional Health Concerns Assessment Noted Time PHQ-9 Depression Total Score: 0 09/08/19 19 1:00 PM CDT documented as of this encounter Care Teams Management Aide Relationship Specialty Start Date End Date Justen Gale MD #[address] [address] [place] [address] PCP - General Family Medicine 10/17/17 documented as of this encounter
--- OUTSIDE RECORDS SUMMARY | 2024-04-26 03:02 | XMS_ITS | Encounter Summary ---
Author Organization [facility] [employer] Care Team Providers Care Linotype Machinist Apprentice Name Role Phone Justen Gale MD Primary Care Provider [phone] Encounter Details Date Type Department Care Team (Latest Contact Info) Description 09/01/2019 Travel Social History Tobacco Use Types Packs/Day [...] have Coronavirus / COVID-19? No / Unsure 09/01/2019 8:49 PM CDT documented as of this encounter Plan of Treatment Upcoming Encounters Date Type Department Care Team (Late st Contact Info) Description 05/17/2024 2:45 PM REPORT DEVELOPER Office Visit [facility] - Endocrinology - [place] [address] [place] [address] Annel Rod MD [address] [place] [address] [address] documented as of this encounter Visit Diagnoses Not on filedocumented in this encounter Additional Health Concerns Assessment Noted Time PHQ-9 Depression Total Score: 0 09/08/19 19 1:00 PM CDT documented as of this encounter Care Teams Linotype Machinist Apprentice Relationship Specialty Start Date End Date Justen Gale MD #2 [place] [address] PCP - General Family Medicine 10/17/17 documented as of this encounter
--- OUTSIDE RECORDS SUMMARY | 2024-04-26 03:02 | XMS_ITS | Encounter Summary ---
Author Organization [facility] Address [address] [place] [address] Phone Care Team Providers Care Sports Specialist Name Role Phone Justen Gale MD Primary Care Provider [phone] Encounter Details Date Type Department Care Team (Late st Contact Info) Description 09/05/2019 [facility]phone [facility] [address] [place] [address] Yajaira Allen, PATCH PRESS OPERATOR, CHIEF OF STAFF DOCTOR [address] [place] [address] Social History Tobacco Use Types Packs/Day Years [...] encounter Miscellaneous Notes * Telephone Encounter - Елена Howe RN - 09/05/2019 6:25 PM CDT Left message for pt to schedule covid-19 swab. documented in this encounter Plan of Treatment Upcoming Encounters Date Type Department Care Team (Late st Contact Info) Description 05/17/2024 2:45 PM HABITAT MANAGEMENT COORDINATOR Office Visit [facility] - Endocrinology - [place] #2 [place] [address] Annel Rod MD #[address] [address] documented as of this encounter Visit Diagnoses Not on filedocumented in this encounter Additional Health Concerns Infection Onset Date Last Indicated Resolved Time COVID - 19 09/05/2019 09/06/2019 10/03/2019 12:1 7 AM CDT Assessment Noted Time PHQ-9 Depression Total Score: 0 09/08/19 1:00 PM CDT documented as of this encounter Care Teams Sports Specialist Relationship Specialty Start Date End Date Justen Gale MD #[address] [address] PCP - General Family Medicine 10/17/17 documented as of this encounter
--- OUTSIDE RECORDS SUMMARY | 2024-04-26 03:02 | XMS_ITS | Encounter Summary ---
Author Organization [facility] Address [address] [place] [address] Phone Care Team Providers Care Trim Technician Name Role Phone Justen Gale MD Primary Care Provider [phone] Reason for Visit * Reason Comments Diabetes Mellitus Encounter Details Date Type Department Care Team (Late st Contact Info) Description 08/13/2019 2:15 PM CDT Telemedicine [facility]ology - [place] #2 [place] [address] Annel Rod MD #[address] [phone] Type 2 diabetes mellitus with diabetic polyneuropathy, with long-term current use of insulin (HCC) (Primary Dx); Class 3 severe obesity due to excess calories with serious comorbidity and body mass index (BMI) of 50.0 to 59.9 in adult (HCC) Social History Tobacco Use Types Packs/Day Years [...] have Coronavirus / COVID-19? No / Unsure 07/26/2019 11:23 AM CDT documented as of this encounter Patient Instructions * Patient Instructions* Annel Rod MD - 08/13/2019 2:15 PM CDT Please take Lantus 50 units in the morning Please take Humalog 24-24-26 units before each meal Please use correctional factor insulin before each meal as directed Please monitor blood sugar before each meal and at bedtime Please send blood sugar log for review in 2-3 weeks Please contact Endocrinology Clinic for low blood [...] Progress Notes * Annel Rod MD - 08/13/2019 2:15 PM CDT CC: Hyperglycemia Karly Marques is a 64-year-old woman who has type 2 diabetes mellitus. The patient's diabetes is complicated by lower extremity sensory neuropathy. Other pertinent health history includes hypertension, dyslipidemia, statin intolerance, goiter, and obesity. The patient was initially diagnosed with diabetes approximately 8 years ago. Currently, Ms. Marques takes Lantus 50 units in the morning, Humalog 24 units with breakfast, 24 units with lunch, and 26 units with supper for management of hyperglycemia. The patient denied low blood sugar event or severe hypoglycemia requiring third libertarian intervention. Ms. Marques reported that morning blood sugars have been running consistently between 110 and 130 mg/dL with blood sugars checked at other times of the day mostly in the range of 100 to 150 mg/ dL. The patient states that hemoglobin A1c obtained in May 2019 was 7.4%. Diabetes related complication surveillance 1. No history of diabetic retinopathy - the last dilated eye exam was in July 2018 2. (+) symptoms of peripheral sensory neuropathy 3. Urine microalbumin/creatinine ratio - not available, currently on lisinopril 20 mg daily 4. LDL - 101 mg/dL in January 2018 5. No history of macrovascular disease Review of Systems Constitutional: Negative for activity change, appetite change, and unexpected weight change. HENT: Negative for congestion and sinus pressure. Eyes: Negative for pain and visual disturbance. Respiratory: Negative for cough and shortness of breath. Cardiovascular: Negative for chest pain and palpitations. Gastrointestinal: Negative for diarrhea, constipation and abdominal distention. Endocrine: Negative for polydipsia, polyphagia and polyuria. [...] SURGERY ??? CHOLECYSTECTOMY ??? LAP,INGUINAL HERNIA REPR,INITIAL Current Outpatient Medications on File Prior to Visit Medication Sig Dispense Refill ??? amitriptyline (ELAVIL) 10 MG Tablet Take 10 mg by mouth nightly. ??? amitriptyline (ELAVIL) 25 MG Tablet ??? atorvastatin (LIPITOR) 20 MG Tablet Take 1 Tab by mouth daily. 90 Tab 3 ??? Blood Glucose Monitoring Suppl Device Diagnosis: Diabetes Type 2 Blood testing frequency: 4 times a day 1 Each 0 ??? exemestane (AROMASIN) 25 MG Tablet Take 25 mg by mouth daily. ??? gabapentin (NEURONTIN) 300 MG Capsule Take 1 Cap by mouth 3 times daily. 90 Cap 0 ??? Glucose Blood (ONE TOUCH ULTRA TEST) Strip Test four times daily. 400 Strip 3 ??? HYDROcodone-acetaminophen (NORCO) 7.5-325 MG Tablet TK 1 T PO QID PRN. DO NOT FILL UNTIL 02/13/2019 0 ??? Insulin Lispro, 1 Unit Dial, (HUMALOG KWIKPEN) 100 UNIT/ML Solution Pen- injector INJECT 24 UNITS UNDER THE SKIN AT BREAKFAST, 24 UNITS AT LUNCH, AND 26 UNITS AT DINNER, UP TO 100 UNITS PER DAY ASDIRECTED 30 mL 2 ??? Insulin Pen Needle (PEN NEEDLES 31GX5/16 ) 31G X 8 MM Misc Use 6 times daily E11.9 300 Each 3 ??? LANTUS SOLOSTAR 100 UNIT/ML Solution Pen-injector INJECT 50 UNITS EVERY MORNING 15 mL 2 ??? lidocaine (LIDODERM) 5 % Patch PLACE 1 PATCH ONTO THE SKIN D FOR 30 DAYS. REMOVE AND DISCARD PATCH WITHIN 12 HOURS OR UTD BY MD 0 ??? lisinopril (PRINIVIL, ZESTRIL) 20 MG Tablet Take 1 Tab by mouth daily. 90 Tab 3 ??? Misc. Devices Misc Supply and instructions: [...] 90 Tab 3 No current facility-administered medications on file prior to visit. Objective: Physical Exam Unable to obtain DIAGNOSTIC DATA: Lab Results Component Value Date HGBA1C 8.1 [...] woman with type 2 diabetes mellitus whose overall glycemic control is reasonable based on review of her capillary blood glucose report. Treatment consideration and lifestyle modification were discussed with her at some length. She will continue current regimen for management of hyperglycemia. Ms. Marques will check blood sugar consistently before each meal and at bedtime. She will then forward these results for review in 2-3 weeks. Additional steps and management will then be determined when the aforementioned \CBG result is available for review. The patientwill return for office reevaluation in 3 months. PLAN: 1. Continue Lantus 50 units in the morning 2. Take Humalog 24-24-26 units before each meal 3. Correctional factor insulin dosed at 1:15 if CBG is > 140 mg/dl 4. Monitor blood sugar QAC/QHS 5. Send CBG log for review in 2-3 weeks 6. Contact Endocrinology Clinic for low blood sugar events 7. RTC in 3 months Obesity PLAN: 1. Low carb and calorie diet 2. Avoid snack and beverage between meal and at bedtime The patient was assessed via telephone for a duration of 12 minutes, regarding hyperglycemia and precaution for Covid 19. The patient verbally consented for this service to be performed and billed. Annel Rod MD 08/13/2019 documented in this encounter Plan of Treatment Upcoming Encounters Date Type Department Care Team (Late st Contact Info) Description 05/17/2024 2:45 PM SLEEVE MAKER Office Visit [facility] - Endocrinology [facility] #2 [place] [address] Annel Rod MD #2 [facility] [address] [place] [address] documented as of this encounter Visit Diagnoses Diagnosis Type 2 diabetes mellitus with diabetic polyneuropathy, with long-term current use of insulin (HCC)- Primary Class 3 severe obesity due to excess calories with serious comorbidity and body mass index (BMI) of 50.0 to 59.9 in adult (HCC) documented in this encounter Additional Health Concerns Assessment Noted Time PHQ-9 Depression Total Score: 0 09/08/19 19 1:00 PM CDT documented as of this encounter Care Teams Trim Technician Relationship Specialty Start Date End Date Justen Gale MD #2 [facility] [address] [place] [address] PCP - General Family Medicine 10/17/17 documented as of this encounter
--- OUTSIDE RECORDS SUMMARY | 2024-04-26 03:02 | XMS_ITS | Encounter Summary ---
Author Organization [facility] Address [address] [place] [address] Phone Care Team Providers Care Manager Customs Name Role Phone Justen Gale MD Primary Care Provider [phone] Reason for Visit * Reason Onset Date Comments Need Order 04/26/2019 Encounter Details Date Type Department Care Team (Late st Contact Info) Description 04/26/2019 Telephone [facility] #2 [place] [address] Justen Gale MD #[address] [address] Need Order Social History Tobacco Use Types Packs/Day Years [...] encounter Miscellaneous Notes * Telephone Encounter - Isamar Yadav APN, FAST FOOD FRY COOK - 04/29/2019 2:31 PM TELEVISION NEWS VIDEO EDITOR Patient notified and verbalizes understanding. VISION NEWS VIDEO EDITOR * Telephone Encounter - Christin Hay RN - 04/29/2019 9:07 AM CST Clearance faxed successfully to Dr. Mensah's office. VISION NEWS VIDEO EDITOR * Telephone Encounter - Marlys Lane RN - 04/26/2019 11:30 AM TELEVISION NEWS VIDEO EDITOR Patient calling back and states that she will go to [facility] this afternoon to get labs done. Just FY. VISION NEWS VIDEO EDITOR * Telephone Encounter - Christin Hay RN - 04/26/2019 11:08 AM TELEVISION NEWS VIDEO EDITOR Patient came to have labs drawn on 04/23/2019 but Lipid panel was the only thing drawn. Orders for CMP, CBC, and A1C extended and patient informed that she needs to come and have these labs drawn in order for Dr. Gale to clear her for surgery. Patient verbalized understanding and then placed this RN on hold and call was disconnected. VISION NEWS VIDEO EDITOR documented in this encounter Plan of Treatment Upcoming Encounters Date Type Department Care Team (Late st Contact Info) Description 05/17/2024 2:45 PM TELEVISION NEWS VIDEO EDITOR Office Visit [facility] - Endocrinology - [place] [address] [place] [phone] Annel Rod MD #[address] [address] documented as of this encounter Visit Diagnoses Not on filedocumented in this encounter Additional Health Concerns Assessment Noted Time PHQ-9 Depression Total Score: 0 09/08/19 19 1:00 PM CDT documented as of this encounter Care Teams Manager Customs Relationship Specialty Start Date End Date Justen Gale MD #2 [place] [address] PCP - General Family Medicine 10/17/17 documented as of this encounter
--- OUTSIDE RECORDS SUMMARY | 2024-04-26 03:02 | XMS_ITS | Encounter Summary ---
Author Organization [facility] Address [address] [place] [address] Phone Care Team Providers Care Contract Technician Name Role Phone Justen Gale MD Primary Care Provider [phone] Reason for Visit * Reason Comments Medication Refill Encounter Details Date Type Department Care Team (Late st Contact Info) Description 05/05/2019 Refill [facility] - Endocr[facility]ology - [place] #2 [place] [address] Annel Rod MD #[address] [address] Medication Refill Social History Tobacco [...] Telephone Encounter - Annel Rod MD - 05/06/2019 8:50 AM CST Rx sent ICAL RESEARCH NURSE * Telephone Encounter - Jennifer Wang, RN - 05/06/2019 8:48 AM CLINICAL RESEARCH NURSE Refill request received. Order pended. Requested Prescriptions Pending Prescriptions Disp Refills ??? LANTUS SOLOSTAR 100 UNIT/ML Solution Pen-injector [Pharmacy Med Name: LANTUS SOLOSTAR PEN INJ 3ML] 15 mL 2 Sig: INJECT 50 UNITS EVERY MORNING Last 3 appointments cancelled due to mobility issues. ICAL RESEARCH NURSE documented in this encounter Plan of Treatment Upcoming Encounters Date Type Department Care Team (Late st Contact Info) Description 05/17/2024 2:45 PM CLINICAL RESEARCH NURSE Office Visit [facility] - Endocrinology [facility] #2 [place] [address] Annel Rod MD #[address] [facility] [address] [place] [address] documented as of this encounter Visit Diagnoses Not on filedocumented in this encounter Additional Health Concerns Assessment Noted Time PHQ-9 Depression Total Score: 0 09/08/19 19 1:00 PM CDT documented as of this encounter Care Teams Contract Technician Relationship Specialty Start Date End Date Justen Gale MD #[address] [facility] [address] [place] [address] PCP - General Family Medicine 10/17/17 documented as of this encounter
--- OUTSIDE RECORDS SUMMARY | 2024-04-26 03:02 | XMS_ITS | Encounter Summary ---
Author Organization [facility] [employer] Care Team Providers Care Asbestos Handler Name Role Phone Justen Gale MD Primary Care Provider Encounter Details Date Type Department Care Team (Latest Contact Info) Description 04/23/2019 Travel Social History Tobacco Use Types Packs/Day [...] st Contact Info) Description 05/17/2024 2:45 PM TONAL REGULATOR Office Visit [facility] Group - Endocrinology - [place] [address] [place] [address] Annel Rod MD #[address] [address] documented as of this encounter Visit Diagnoses Not on filedocumented in this encounter Additional Health Concerns Assessment Noted Time PHQ-9 Depression Total Score: 0 09/08/19 19 1:00 PM CDT documented as of this encounter Care Teams Asbestos Handler Relationship Specialty Start Date End Date Justen Gale MD #2 [place] [id number] PCP - General Family Medicine 10/17/17 documented as of this encounter
--- OUTSIDE RECORDS SUMMARY | 2024-04-26 03:02 | XMS_ITS | Encounter Summary ---
Author Organization [facility] Address [address] [place] [address] Phone Care Team Providers Care Fur Repair Inspector Name Role Phone Justen Gale MD Primary Care Provider [phone] Reason for Visit * Reason Comments Medication Refill Encounter Details Date Type Department Care Team (Late st Contact Info) Description 06/13/2019 Refill [facility] [address] [place], [place] [phone] Justen Gale MD #[address] [address] Medication Refill Social History Tobacco Use Types [...] Telephone Encounter - Felicitas Krishna RN - 06/14/2019 8:25 AM GOVERNMENT GAUGER Medication(s) refilled and signed per [facility] Chronic Medication Refill Standing Order for Pediatric and Adult Patients. RNMENT GAUGER documented in this encounter Plan of Treatment Upcoming Encounters Date Type Department Care Team (Late st Contact Info) Description 05/17/2024 2:45 PM GOVERNMENT GAUGER Office Visit [facility] Group - Endocrinology - [place] #2 [place] [address] Annel Rod MD #2 [facility] [address] [place] [address] documented as of this encounter Visit Diagnoses Not on filedocumented in this encounter Additional Health Concerns Assessment Noted Time PHQ-9 Depression Total Score: 0 09/08/19 19 1:00 PM CDT documented as of this encounter Care Teams Fur Repair Inspector Relationship Specialty Start Date End Date Justen Gale MD #2 [facility] [address] [place] [address] PCP - General Family Medicine 10/17/17 documented as of this encounter
--- OUTSIDE RECORDS SUMMARY | 2024-04-26 03:02 | XMS_ITS | Encounter Summary ---
Author Organization [facility] Address [address] [place] [address] Phone Care Team Providers Care Manager Regional Sales Name Role Phone Justen Gale MD Primary Care Provider [phone] Reason for Visit * Reason Onset Date Comments Medication Management 04/23/2019 Insulin Pe n Needle (PEN NEEDLES 31GX5/16 ) 31G X 8 MM Misc Encounter Details Date Type Department Care Team (Late st Contact Info) Description 04/23/2019 Nurse Triage [facility] [address] [place] [address] [place] [address] Justen Gale MD #[address] [address] Medication Management (Insulin Pen Needle (PEN NEEDLES 31GX5/16 ) 31G X 8 MM Misc) Social History Tobacco Use Types Packs/Day Years [...] Telephone Encounter - Norma Peterson RN - 04/23/2019 8:18 PM C 40A CREW CHIEF Reason for Disposition ??? Caller has URGENT medication question about med that PCP prescribed and triager unable to answer question Protocols used: MEDICATION QUESTION CALL-A-AH C 40A CREW CHIEF * Telephone Encounter - Norma Peterson RN - 04/23/2019 8:02 PM C 40A CREW CHIEF SITUATION (caller perception/concerns): medication management BACKGROUND: Caller requests:needs refill of insulin pen needles Last office visit: 04/15/19 Ordering provider: Dr Gale Name of medication: pen needles Reason prescribed: Diabetes Last refill: 10/27/18 Amount of pills/capsules/ml remaining: zero Refills remaining: zero Allergies reviewed: yes Preferred pharmacy: [facility] ASSESSMENT: New or worsening symptoms: no RECOMMENDATION: RN reviewed EMR and found an order with 3 refills still available from 10/27/18 for use up to 6 times daily. RN phoned [facility] and spoke with Saundra [facility], who stated this order was found and she is filing the refill now: Insulin Pen Needle (PEN NEEDLES 31GX5/16 ) 31G X 8 MM Misc 300 Each 3 10/27/2018 Sig: Use 6 times ??daily E11.9 Sent to pharmacy as: Pen [place] 5/16 31G X 8 MM Class: E Prescribe Medication order read verbatim to Saundra jimenez at [facility] pharmacy. TORB. Caller notified medication order has been sent to preferred pharmacy. Caller verbalized understanding of information given and denies further questions. Teach-back method utilized. The Provider route driver salesperson (POC) will NOT be called for chronic medication refills between the hours of 2200 and 0830 daily or during office hours. EXCEPTION: If the refill is deemed to be emergent through nursing judgment, the POC may be contacted at any time. C 40A CREW CHIEF documented in this encounter Plan of Treatment Upcoming Encounters Date Type Department Care Team (Late st Contact Info) Description 05/17/2024 2:45 PM C 40A CREW CHIEF Office Visit [facility] - Endocrinology - [place] [address] [place] [address] Annel Rod MD #[address] [facility] [address] [place] [address] documented as of this encounter Visit Diagnoses Not on filedocumented in this encounter Additional Health Concerns Assessment Noted Time PHQ-9 Depression Total Score: 0 09/08/19 19 1:00 PM CDT documented as of this encounter Care Teams Manager Regional Sales Relationship Specialty Start Date End Date Justen Gale MD #2 [facility] [address] [place] [address] PCP - General Family Medicine 10/17/17 documented as of this encounter
--- OUTSIDE RECORDS SUMMARY | 2024-04-26 03:02 | XMS_ITS | Encounter Summary ---
Author Organization [facility] Address [address] [place] [address] Phone Care Team Providers Care Chief Communications Officer Name Role Phone Justen Gale MD Primary Care Provider Encounter Details Date Type Department Care Team (Late st Contact Info) Description 04/26/2019 Telephone [facility] #2 [place] [address] Justen Gale MD #[address] [address] Social History Tobacco Use Types Packs/Day Years [...] Telephone Encounter - Justen Gale MD - 04/26/2019 10:58 AM CST d ROPATH documented in this encounter Plan of Treatment Upcoming Encounters Date Type Department Care Team (Late st Contact Info) Description 05/17/2024 2:45 PM NATUROPATH Office Visit [facility] - Endocrinology [facility] #2 [place] [address] Annel Rod MD #2 [facility] [address] [place] [address] documented as of this encounter Visit Diagnoses Not on filedocumented in this encounter Additional Health Concerns Assessment Noted Time PHQ-9 Depression Total Score: 0 09/08/19 19 1:00 PM CDT documented as of this encounter Care Teams Chief Communications Officer Relationship Specialty Start Date End Date Justen Gale MD [facility] [address] [place] [address] PCP - General Family Medicine 10/17/17 documented as of this encounter
--- OUTSIDE RECORDS SUMMARY | 2024-04-26 03:02 | XMS_ITS | Encounter Summary ---
Author Organization [facility] Address [address] [place] [address] Phone Care Team Providers Care Bar Back Name Role Phone Justen Gale MD Primary Care Provider [phone] Reason for Visit * Reason Onset Date Comments Follow-up 08/06/2019 Encounter Details Date Type Department Care Team (Late st Contact Info) Description 08/06/2019 Telephone [facility] [address] [place] [address] Justen Gale MD #[address] [address] Follow-up Social History Tobacco Use Types Packs/Day [...] Miscellaneous Notes * Telephone Encounter - Radha Billy RN - 08/06/2019 3:53 PM CDT Patient is aware and verbalizes understanding. * Telephone Encounter - Justen Gale MD - 08/06/2019 2:37 PM CDT Please call. I would try otc milk of magnesia. If no better in next 1-2 weeks, call or make ov. Call sooner if gets worse. * Telephone Encounter - Heaven Flores RN - 08/06/2019 1:57 PM CDT Patient is calling back and states that she is still having the nausea from the televisit 07/25/19 with PCP. Patient reports she started to feel better and just started to feel sick again today. Patient reports feeling nauseous but not vomiting. Patient reports the ondansetron helps very little. Patient is asking if there is something more for her nausea? Please advise documented in this encounter Plan of Treatment Upcoming Encounters Date Type Department Care Team (Late st Contact Info) Description 05/17/2024 2:45 PM SENIOR ANALYTIC CONSULTANT Office Visit [facility] - Endocrinology - [place] [address] [place] [address] Annel Rod MD #[address] [address] documented as of this encounter Visit Diagnoses Not on filedocumented in this encounter Additional Health Concerns Assessment Noted Time PHQ-9 Depression Total Score: 0 09/08/19 19 1:00 PM CDT documented as of this encounter Care Teams Bar Back Relationship Specialty Start Date End Date Justen Gale MD #[address] [address] PCP - General Family Medicine 10/17/17 documented as of this encounter
--- OUTSIDE RECORDS SUMMARY | 2024-04-26 03:02 | XMS_ITS | Encounter Summary ---
Author Organization [facility] Address [address] [place] [address] Phone Care Team Providers Care Certified Prosthetist/Orthotist Name Role Phone Justen Gale MD Primary Care Provider Reason for Visit * Reason Onset Date Comments Referral 06/12/2019 Encounter Details Date Type Department Care Team (Late st Contact Info) Description 06/12/2019 Telephone [facility] [address] [place] [address] Justen Gale MD #[address] [address] Referral Social History Tobacco Use Types Packs/Day [...] encounter Miscellaneous Notes * Telephone Encounter - Lakisha Anglin RN - 06/13/2019 4:04 PM CST Patient states she already seen podiatry and had foot surgery done. She states to please cancel referral. ASSOCIATE * Telephone Encounter - Lisa Dallas - 06/12/2019 8:07 AM CST [id number] - EXTERNAL PODIATRY REFERRAL ?? We have been unable to contact patient by phone or mail in regards to referral. Thank you. [facility] ASSOCIATE documented in this encounter Plan of Treatment Upcoming Encounters Date Type Department Care Team (Late st Contact Info) Description 05/17/2024 2:45 PM CS ASSOCIATE Office Visit [facility] Group - Endocrinology - [place] #2 [place] [address] Annel Rod MD #2 [facility] [address] [place] [address] documented as of this encounter Visit Diagnoses Not on filedocumented in this encounter Additional Health Concerns Assessment Noted Time PHQ-9 Depression Total Score: 0 09/08/19 19 1:00 PM CDT documented as of this encounter Care Teams Certified Prosthetist/Orthotist Relationship Specialty Start Date End Date Justen Gale MD #2 [facility] [address] [place] [address] PCP - General Family Medicine 10/17/17 documented as of this encounter
--- OUTSIDE RECORDS SUMMARY | 2024-04-26 03:02 | XMS_ITS | Encounter Summary ---
Author Organization [facility] Address [address] [place] [address] Phone Care Team Providers Care Farm Mortgage Agent Name Role Phone Justen Gale MD Primary Care Provider [phone] Reason for Referral * Consult, Test & Initiate Treatment (Routine) - Canceled Specialty Diagnoses / Procedures Referred By Contac t Referred To Contact Endocrinology Diagnoses Type 2 diabetes mellitus with diabetic polyneuropathy, with long-term current use of insulin (HCC) Justen Gale MD #2 [facility] [address] [place] [address] Phone: tel: fax: Annel Rod MD #[address] [address] Phone: tel: fax: Referral ID Status Reason Start Date Expiration Date V isits Requested Visits Authorized [id number] Canceled 07/17/2019 1 11 Scheduling Instructions Karly is being referred to endocrinology or other specialist in patient's insurance network for E11.9. See below for Karly's current medications, allergies [...] Take 1 Cap by mouth 3 times daily., Disp: 90 Cap, Rfl: 0 Glucose Blood (ONE TOUCH ULTRA TEST) Strip, Test four times daily., Disp: 400 Strip, Rfl: 3 HYDROcodone-acetaminophen (NORCO) 5-325 MG Tablet, Take 1 Tab by mouth every 4 hours as needed for Moderate or more severe pain. (Patient not taking: Reported on 04/15/2019), Disp: 60 Tab, Rfl: 0 HYDROcodone-acetaminophen (NORCO) 7.5-325 MG Tablet, TK 1 T PO QID PRN. DO NOT FILL UNTIL 02/13/2019, Disp: , Rfl: 0 insulin lispro, Human, (HUMALOG KWIKPEN) 100 UNIT/ML Solution Pen-injector, 24 units at breakfast, 24 units at lunch and 26 units at dinner. Correctional factor insulin of 1:15 if > 140 mg/dL. Up to 100 units per day, Disp: 30 mL, Rfl: 3 Insulin Pen Needle (PEN NEEDLES 31GX5/16 ) 31G X 8 MM Misc, Use 6 times daily E11.9, Disp: 300 Each, Rfl: 3 LANTUS SOLOSTAR 100 UNIT/ML Solution Pen-injector, INJECT 50 UNITS EVERY MORNING, Disp: 15 mL, Rfl: 2 lidocaine (LIDODERM) 5 % Patch, PLACE 1 PATCH ONTO THE SKIN D FOR 30 DAYS. REMOVE AND DISCARD PATCH WITHIN 12 HOURS OR UTD BY MD, Disp: , Rfl: 0 lisinopril (PRINIVIL, ZESTRIL) 20 MG Tablet, Take 1 Tab by mouth daily., Disp: 90 Tab, Rfl: 3 Misc. Devices Misc, Supply and instructions:, Disp: 1 Each, Rfl: 0 omeprazole (PRILOSEC) 40 MG CAPSULE DELAYED RELEASE, Take 1 Cap by mouth daily. (Patient not taking: Reported on 02/25/2019), Disp: 60 Cap, Rfl: 3 ondansetron (ZOFRAN) 4 MG Tablet, Take 1 Tab by mouth every 8 hours as needed for Nausea - 1st line. (Patient not taking: Reported on 02/25/2019), Disp: 30 Tab, Rfl: 0 ONETOUCH DELICA LANCETS 33G [...] 1 TABLET BY MOUTH EVERY NIGHT (Patient not taking: Reported on 04/15/2019), Disp: 90 Tab, Rfl: 3 rOPINIROLE (REQUIP) 5 MG Tablet, TAKE 1 [...] Visit * Reason Onset Date Comments Referral 07/17/2019 Encounter Details Date Type Department Care Team (Late st Contact Info) Description 07/17/[address] [address] Justen Gale MD #[address] [address] Referral Social History Tobacco Use Types Packs/Day [...] Telephone Encounter - Jennifer Kumari RN - 07/17/2019 3:13 PM CDT [facility] calling and asking for an endocrinology referral. Patient has an appt on 07/30/2019. External endocrinology referral pended, please review. documented in this encounter Plan of Treatment Upcoming Encounters Date Type Department Care Team (Late Contact Info) Description 05/17/2024 2:45 PM AVIONICS SHOP SUPERVISOR Office Visit [facility] - [place] #2 [place] [address] Annel Rod MD #2 [facility] [address] [place] [address] Scheduled Referrals Name Type Priority Associated Diagnoses Order Schedule EXTERNAL ENDOCRINOLOGY REFERRAL Outpatient Referral Routine Type 2 diabetes mellitus with diabetic polyneuropathy, with long-term current use of insulin (HCC) Expected: 07/17/2019, Expires: 07/16/2020 documented as of this encounter Visit Diagnoses Diagnosis Type 2 diabetes mellitus with diabetic polyneuropathy, with long-term current use of insulin (HCC)- Primary documented in this encounter Additional Health Concerns Assessment Noted Time PHQ-9 Depression Total Score: 0 09/08/19 19 1:00 PM CDT documented as of this encounter Care Teams Farm Mortgage Agent Relationship Specialty Start Date End Date Justen Gale MD #2 [facility] [address] [place] [address] PCP - General Family Medicine 10/17/17 documented as of this encounter
--- OUTSIDE RECORDS SUMMARY | 2024-04-26 03:02 | XMS_ITS | Encounter Summary ---
Author Organization [facility] Address [address] [place] [address] Phone Care Team Providers Care Supreme Court Justice Name Role Phone Justen Gale MD Primary Care Provider [phone] Reason for Referral * Radiology Services (Routine) - Closed Specialty Diagnoses / Procedures Referred By Contac t Referred To Contact Radiology Diagnoses Preop examination Procedures XR CHEST 2 VIEWS Justen Gale MD #[address] [address] Phone: tel: fax: Referral ID Status Reason Start Date Expiration Date Visits Re quested Visits Authorized [id number] Closed 04/15/2019 1 1 GER OF INTERNAL AUDIT Reason for Visit * Radiology Services (Routine) - Closed Specialty Diagnoses / Procedures Referred By Elyssa benavides Referred To Contact Radiology Diagnoses Preop examination Procedures XR CHEST 2 VIEWS Justen Gale MD #[address] [address] Phone: tel: fax: Referral ID Status Reason Start Date Expiration Date Visits Re quested Visits Authorized [id number] Closed 04/15/2019 1 1 Encounter Details Date Type Department Care Team (Latest Contact Info) Description 04/23/2019 3:30 PM MANAGER OF INTERNAL AUDIT - 04/23/2019 11:59 PM MANAGER OF INTERNAL AUDIT Hospital Encounter [facility] [address] [place] [phone] Justen Gale MD #[address] [facility] [address] [facility] [facility] [address] [place] [address] Discharge Disposition: Discharged to home or Selfcare [...] Time of Discharge Blood Glucose Monitoring Suppl DeviceIndication s:Type 2 diabetes mellitus with complication, without long-term current use of insulin ([facility]) Diagnosis: Diabetes Type 2 Blood testing frequency: 4 times a day 1 Each 11/21/2017 exemestane (AROMASIN) 25 MG Tablet Take 25 mg by mouth daily. HYDROcodone-acet aminophen (NORCO) 7.5-325 MG Tablet 0 02/17/2019 rivaroxaban (XARELTO) 20 MG Tablet Take 20 mg by mouth daily. amitriptyline (ELAVIL) 10 MG Tablet Take 10 mg by mouth nightly. 0 amitriptyline (ELAVIL) 25 MG Tablet nightly. 02/18/2019 4 atorvastatin (LIPITOR) 20 MG Tablet Take 1 Tab by mouth daily. 90 Tab 3 01/19/2018 2 gabapentin (NEURONTIN) 300 MG Capsule Take 1 Cap by mouth 3 times daily. 90 Cap 02/27/2018 0 Glucose Blood (ONE TOUCH ULTRA TEST) Strip Test four times daily. 400 Strip 3 01/19/2018 0 HYDROcodone-acet aminophen (NORCO) 5-325 MG Tablet Take 1 Tab by mouth every 4 hours as needed for Moderate or more severe pain. 60 Tab 02/01/2018 0 insulin lispro, Human, (HUMALOG KWIKPEN) 100 UNIT/ML Solution Pen-injector 24 units at breakfast, 24 units at lunch and 26 units at dinner. Correctional factor insulin of 1:15 if > 140 mg/dL. Up to 100 units per day 30 mL 3 01/24/2019 0 Insulin Pen Needle (PEN NEEDLES 31GX5/16 ) 31G X 8 MM Misc Use 6 times daily E11.9 300 Each 3 10/27/2018 0 LANTUS SOLOSTAR 100 UNIT/ML Solution Pen-injector INJECT 50 UNITS EVERY MORNING 15 mL 2 12/26/2018 0 lidocaine (LIDODERM) 5 % Patch PLACE 1 PATCH ONTO THE SKIN D FOR 30 DAYS. REMOVE AND DISCARD PATCH WITHIN 12 HOURS OR UTD BY MD 0 12/12/2018 0 lisinopril (PRINIVIL, ZESTRIL) 20 MG Tablet Take 1 Tab by mouth daily. 90 Tab 3 06/18/2018 0 Misc. Devices Misc Supply and instructions: 1 Each 02/25/2019 2 omeprazole (PRILOSEC) 40 MG CAPSULE DELAYED RELEASEIndicatio ns:Generalized abdominal pain Take 1 Cap by mouth daily. 60 Cap 3 09/07/2018 0 ondansetron (ZOFRAN) 4 MG TabletIndication s:Nausea Take 1 Tab by mouth every 8 hours as needed for Nausea - 1st line. 30 Tab 09/07/2018 0 ONETOUCH DELICA LANCETS 33G Misc 1 Lancet by Does not apply route 4 times daily. 400 Lancet 3 01/19/2018 1 oxybutynin (DITROPAN) 5 MG Tablet Take 1 Tab by mouth 2 times daily. 180 Tab 1 06/18/2018 0 Polyethylene Glycol 3350 (MIRALAX PO) Take by mouth. 05/19/19 2 2 rOPINIROLE (REQUIP) 5 MG Tablet TAKE 1 TABLET BY MOUTH EVERY NIGHT 90 Tab 3 03/15/2019 0 rOPINIROLE (REQUIP) 5 MG Tablet TAKE 1 TABLET BY MOUTH EVERY NIGHT 90 Tab 3 09/18/2018 0 documented as of this encounter Plan of Treatment Upcoming Encounters Date Type Department Care Team (Late st Contact Info) Description 05/17/2024 2:45 PM MANAGER OF INTERNAL AUDIT Office Visit [facility] - Endocrinology [facility] [address] [place] [phone] Annel Rod MD #[address] [address] documented as of this encounter Procedures Procedure Name Priority Date/Time Associated Diagnosis Comments XR CHEST 2 VIEWS Routine 04/23/2019 3:52 PM MANAGER OF INTERNAL AUDIT Preop examination documented in this encounter Results * XR CHEST 2 VIEWS (04/23/2019 3:52 PM MANAGER OF INTERNAL AUDIT) Anatomical Region Laterality Modality Chest N/A Digital Radiogra phy 04/23/2019 3:58 PM MANAGER OF INTERNAL AUDIT Impressions 04/23/2019 4:01 PM MANAGER OF INTERNAL AUDIT IMPRESSION: ??No acute findings noted. Narrative 04/23/2019 4:01 PM MANAGER OF INTERNAL AUDIT EXAM DESCRIPTION: ??XR CHEST 2 VIEWS REASON FOR STUDY: ??Preoperative evaluation for foot surgery in April. TECHNIQUE: ??Frontal and lateral radiographic views of the chest acquired. COMPARISON: ??None available. FINDINGS: ??LUNGS/PLEURA: Mild lobulation of the diaphragm. ??Lungs are well expanded and clear. ??There is no pleural effusion. ??No pneumothorax. HEART/MEDIASTINUM: Mild cardiomegaly. ??The thoracic aorta is mildly tortuous. ??No mediastinal widening. HARDWARE/LINES/TUBES: Cholecystectomy clips in the right upper quadrant. BONES: No acute findings. OTHER: No other significant finding. THIS IS AN ELECTRONICALLY VERIFIED FINAL REPORT 04/23/2019 3:58 PM - Electronically signed by Robert Restrepo M.D. RL: CHARLEEN D: ??04/23/2019 3:58 PM T: ??04/23/2019 3:58 PM Report ID: [id number] Reading Location: ??[id number] Procedure Note Robert Restrepo MD - 04/23/2019 EXAM DESCRIPTION: XR CHEST 2 VIEWS REASON FOR STUDY: Preoperative evaluation for foot surgery in April. TECHNIQUE: Frontal and lateral radiographic views of the chest acquired. COMPARISON: None available. FINDINGS: LUNGS/PLEURA: Mild lobulation of the diaphragm. Lungs are well expanded and clear. There is no pleural effusion. No pneumothorax. HEART/MEDIASTINUM: Mild cardiomegaly. The thoracic aorta is mildly tortuous. No mediastinal widening. HARDWARE/LINES/TUBES: Cholecystectomy clips in the right upper quadrant. BONES: No acute findings. OTHER: No other significant finding. THIS IS AN ELECTRONICALLY VERIFIED FINAL REPORT 04/23/2019 3:58 PM - Electronically signed by Robert Restrepo M.D. RL: CHARLEEN Report ID: [id number] Reading Location: [place] [address] IMPRESSION: No acute findings noted. Justen Gale MD IMG DIAGNOSTIC ORDERABLES Fin al Result documented in this encounter Visit Diagnoses Diagnosis Preop examination Preoperative examination, unspecified documented in this encounter Additional Health Concerns Assessment Noted Time PHQ-9 Depression Total Score: 0 09/08/19 19 1:00 PM CDT documented as of this encounter Care Teams Supreme Court Justice Relationship Specialty Start Date End Date Justen Gale MD #2 [place] [address] PCP - General Family Medicine 10/17/17 documented as of this encounter
--- OUTSIDE RECORDS SUMMARY | 2024-04-26 03:02 | XMS_ITS | Encounter Summary ---
Author Organization [facility] Address [address] [place] [address] Phone Care Team Providers Care Stonemason Apprentice Name Role Phone Justen Gale MD Primary Care Provider Encounter Details Date Type Department Care Team (Late st Contact Info) Description 09/04/2019 Telephone [facility] #2 [place] [address] Justen Glae MD #[address] [address] Social History Tobacco Use Types Packs/Day Years [...] Telephone Encounter - Maira Bello RN - 09/04/2019 11:01 AM CDT Patient notified and verbalized understanding. * Telephone Encounter - Justen Gale MD - 09/04/2019 9:16 AM CDT Please call. Yes. Done. documented in this encounter Plan of Treatment Upcoming Encounters Date Type Department Care Team (Late st Contact Info) Description 05/17/2024 2:45 PM THERAPIST Office Visit [facility] - Endocrinology - [place] #2 [place] [address] Annel Rod MD #2 [facility] [address] [place] [address] documented as of this encounter Visit Diagnoses Not on filedocumented in this encounter Additional Health Concerns Assessment Noted Time PHQ-9 Depression Total Score: 0 09/08/19 19 1:00 PM CDT documented as of this encounter Care Teams Stonemason Apprentice Relationship Specialty Start Date End Date Justen Gale MD #2 [facility] [address] [place] [address] PCP - General Family Medicine 10/17/17 documented as of this encounter
--- OUTSIDE RECORDS SUMMARY | 2024-04-26 03:02 | XMS_ITS | Encounter Summary ---
Author Organization [facility] Address [address] [place] [address] Phone Care Team Providers Care Cap Sizer Name Role Phone Justen Gale MD Primary Care Provider [phone] Reason for Visit * Reason Onset Date Comments Advice Only 04/29/2019 Encounter Details Date Type Department Care Team (Late st Contact Info) Description 04/29/2019 Telephone [facility] [address] [place], [place] [id number] Justen Gale MD #[address] [address] Advice Only Social History Tobacco Use Types [...] Telephone Encounter - Radha Billy RN - 04/30/2019 10:35 AM PARTY BUS DRIVER Patient states she is willing to wait if that is want she needs to do. I have also suggested she call her street superintendent and explain to them the situation and see if they have advise to help lower her sugars. Y BUS DRIVER * Telephone Encounter - Justen Gale MD - 04/29/2019 2:52 PM CST Please call. It might be better just to wait anohter month to have your current surgeon do it. Are you willing to wait a month? Y BUS DRIVER * Telephone Encounter - Jennifer Kumari RN - 04/29/2019 2:44 PM PARTY BUS DRIVER Patient calling and reporting her foot surgeon will not do her foot surgery due to her Ha1c is below 8.0. Patient reports her ha1c was 8.1. Patient reports that she steroid injection approx 03/2019 for her back pain and thinks this is what drove up her ha1c. Patient asking for PCP to refer her to another foot surgeon. Please advise. Patient reports that the foot surgeon is wanting to hold surgery for another month due to the elvated ha1c. Y BUS DRIVER documented in this encounter Plan of Treatment Upcoming Encounters Date Type Department Care Team (Late st Contact Info) Description 05/17/2024 2:45 PM PARTY BUS DRIVER Office Visit [facility] - Endocrinology - [place] [address] [place] [address] Annel Rod MD #[address] [address] documented as of this encounter Visit Diagnoses Not on filedocumented in this encounter Additional Health Concerns Assessment Noted Time PHQ-9 Depression Total Score: 0 09/08/19 19 1:00 PM CDT documented as of this encounter Care Teams Cap Sizer Relationship Specialty Start Date End Date Justen Gale MD #[address] [address] PCP - General Family Medicine 10/17/17 documented as of this encounter
--- OUTSIDE RECORDS SUMMARY | 2024-04-26 03:02 | XMS_ITS | Encounter Summary ---
Author Organization [facility] [employer] Care Team Providers Care Customer Service Receptionist Name Role Phone Justen Gale MD Primary Care Provider [phone] Encounter Details Date Type Department Care Team (Latest Contact Info) Description 07/17/2019 Travel Social History Tobacco Use Types Packs/Day [...] Contact Info) Description 05/17/2024 2:45 PM LEAD BUSINESS SYSTEMS ANALYST Office Visit [facility] - Endocrinology - [place] #[address] [place] [address] Annel Rod MD #[address] [facility] [address] [address] documented as of this encounter Visit Diagnoses Not on filedocumented in this encounter Additional Health Concerns Assessment Noted Time PHQ-9 Depression Total Score: 0 09/08/19 19 1:00 PM CDT documented as of this encounter Care Teams Customer Service Receptionist Relationship Specialty Start Date End Date Justen Gale MD #2 [place] [address] PCP - General Family Medicine 10/17/17 documented as of this encounter
--- OUTSIDE RECORDS SUMMARY | 2024-04-26 03:02 | XMS_ITS | Encounter Summary ---
Author Organization [facility] Address [address] [place] [address] Phone Care Team Providers Care Cyber Ops Planner Name Role Phone Justen Gale MD Primary Care Provider [phone] Reason for Visit * Reason Comments Nausea Encounter Details Date Type Department Care Team (Late st Contact Info) Description 07/25/2019 3:00 PM CDT Telemedicine [facility] #2 [place] [phone] Justen Gale MD #[address] [address] Nausea (Primary Dx); Hyperthyroidism Social History Tobacco Use Types Packs/Day Years [...] Progress Notes * Justen Gale MD - 07/25/2019 3:00 PM CDT Patient was assessed via telephone for a duration of 14minutes. Patient verbally consented for thisservice to be performed and billed. [id number] HPI: Karly Marques is a 64 y.o. female evaluated today for constipation. nausea. Last week. Got constipation This week soft small bm Has been on miralax Last night after dinner got nausea. No f/c No sore throat Always Has nausea a bit. Nausea wirse after eats. Only thing that helps with nausea without making rls worse is zofran. No vomiting. No blood in stools Constipation with miralax abd pain: No No cp sob no as well. No hx gi issues. Except gerd at times. No new meds. No travel No sick contacts. Current Outpatient Medications: ??? amitriptyline (ELAVIL) 10 MG Tablet ??? amitriptyline (ELAVIL) 25 MG Tablet ??? atorvastatin (LIPITOR) 20 MG Tablet ??? Blood Glucose Monitoring Suppl Device ??? exemestane (AROMASIN) 25 MG Tablet ??? gabapentin (NEURONTIN) 300 MG Capsule ??? Glucose Blood (ONE TOUCH ULTRA TEST) Strip ??? HYDROcodone-acetaminophen (NORCO) 5-325 MG Tablet ??? HYDROcodone-acetaminophen (NORCO) 7.5-325 MG Tablet ??? Insulin Lispro, 1 Unit Dial, (HUMALOG KWIKPEN) 100 UNIT/ML Solution Pen-injector ??? Insulin Pen Needle (PEN NEEDLES 31GX5/16 ) 31G X 8 MM Misc ??? LANTUS SOLOSTAR 100 UNIT/ML Solution Pen-injector ??? lidocaine (LIDODERM) 5 % Patch ??? lisinopril (PRINIVIL, ZESTRIL) 20 MG Tablet ??? Misc. Devices Misc ??? omeprazole (PRILOSEC) 40 MG CAPSULE DELAYED RELEASE ??? ondansetron (ZOFRAN) 4 MG Tablet ??? ONETOUCH DELICA LANCETS 33G Misc ??? oxybutynin (DITROPAN) 5 MG Tablet ??? Polyethylene Glycol 3350 (MIRALAX PO) ??? rivaroxaban (XARELTO) 20 MG Tablet ??? rOPINIROLE (REQUIP) 5 MG Tablet ??? rOPINIROLE (REQUIP) 5 MG Tablet The past medical, surgical, family and social histories, and allergies were reviewed and updated asneeded. ROS: No cp or sob Plan: No diagnosis found. Follow Up: Karly was asked to follow up with JUSTEN GALE MD in 0 month(s). The After Visit Summary is printed and will be mailed to the patient. Nausea: Tsh. Cbc. Cmp. Viral? Will call in zofran. Ibs? If no better in next 1-2 weeks, call or make ov. Call sooner if gets worse. Dm related? Meds? [place] diet? documented in this encounter Plan of Treatment Upcoming Encounters Date Type Department Care Team (Late st Contact Info) Description 05/17/2024 2:45 PM ASPHALT PAVER Office Visit [facility] #2 [place] [phone] Annel Rod MD #[address] [address] documented as of this encounter Results * (ABNORMAL) CMP (COMPREHENSIVE METABOLIC PANEL) (07/26/2019 11:28 AM CDT) SODIUM 138 136 - 144 mmol/L 07/26/2019 12:25 PM CDT [facility] POTASSIUM 4.6 3.5 - 5.1 mmol/L 07/26/2019 12:25 PM CDT [facility] CHLORIDE 100 100 - 110 mmol/L 07/26/2019 12:25 PM CDT [facility] CO2, VENOUS 27 22 - 32 mmol/L 07/26/2019 12:25 PM CDT [facility] ANION GAP 15.6 8.0 - 20.0 mmol/L 07/26/2019 12:25 PM CDT [facility] GLUCOSE 133(H) 70 - 99 mg/dL 07/26/2019 12:25 PM CDT [facility] BUN 18 8 - 23 mg/dL 07/26/2019 12:25 PM CDT [facility] CREATININE, BLOOD 0.74 0.60 - 1.10 mg/dL 07/26/2019 12:25 PM CDT [facility] BUN/CREATININE RATIO 24(H) 12 - 20 ratio 07/26/2019 12:25 PM CDT [facility] TOTAL PROTEIN 8.2 6.0 - 8.3 g/dL 07/26/2019 12:25 PM CDT [facility] ALBUMIN 3.8 3.5 - 5.2 g/dL 07/26/2019 12:25 PM CDT [facility] Comment: The colormetric methods used for the determination of Albumin may lead to falsely elevated test results in patients suffering from renal failure or insufficiency due to interference with other proteins. A/G RATIO 0.9(L) 1.0 - 2.0 07/26/2019 12:25 PM CDT [facility] CALCIUM 9.7 8.9 - 10.3 mg/dL 07/26/2019 12:25 PM CDT [facility] T BILI 0.6 <=1.2 mg/dL 07/26/2019 12:25 PM CDT [facility] SGOT (AST) 18 <=32 U/L 07/26/2019 12:25 PM CDT [facility] SGPT (ALT) 20 <=33 U/L 07/26/2019 12:25 PM CDT [facility] ALKALINE PHOSPHATASE 88 35 - 105 U/L 07/26/2019 12:25 PM CDT [facility] GFR, EST. NONAFRICAN >60 >=60 07/26/2019 12:25 PM CDT [facility] GFR, EST. >60 >=60 020 12:25 PM CDT [facility] Comment: Creatinine Clearance is the preferred criteria for selecting drug dose adjustments in renally impaired patients. ??The GFR is provided as additional pertinent clinical information. GFR is reported in mL/min/1.73 sq m. Blood specimen (specimen) Venipuncture / Unknown 07/26/2019 11:28 AM CDT 07/26/2019 11:28 AM CDT Justen Gale MD CHEMISTRY ORDERABLES Final Re sult Performing Organization Address City/[facility] Co de Phone Number [facility] [address] [place] [address] * THYROID STIMULATING HORMONE (TSH) (07/26/2019 11:28 AM CDT) TSH 3.960 0.270 - 4.200 mIU/L 07/26/2019 12:25 PM CDT [facility] Blood specimen (specimen) Venipuncture / Unknown 07/26/2019 11:28 AM CDT 07/26/2019 11:28 AM CDT Justen Gale MD CHEMISTRY ORDERABLES Final Re sult Performing Organization Address [facility] de Phone Number [facility] [address] [place] [address] documented in this encounter Visit Diagnoses Diagnosis Nausea- Primary Nausea alone Hyperthyroidism Thyrotoxicosis without mention of goiter or other cause, without mention of thyrotoxic crisis or storm documented in this encounter Additional Health Concerns Assessment Noted Time PHQ-9 Depression Total Score: 0 09/08/19 19 1:00 PM CDT documented as of this encounter Care Teams Cyber Ops Planner Relationship Specialty Start Date End Date Justen Gale MD #[address] [address] PCP - General Family Medicine 10/17/17 documented as of this encounter
--- OUTSIDE RECORDS SUMMARY | 2024-04-26 03:02 | XMS_ITS | Encounter Summary ---
Author Organization [facility] Address [address] [place] [address] Phone Care Team Providers Care Electromechanical Equipment Assembler Name Role Phone Justen Gale MD Primary Care Provider [phone] Encounter Details Date Type Department Care Team (Late st Contact Info) Description 04/25/2019 Telephone [facility] [address] [place] [address] Justen Gale MD #[address] [address] Social History Tobacco Use Types Packs/Day Years [...] Telephone Encounter - Radha Billy RN - 04/25/2019 2:03 PM CLERK CARRIER Marlys with [facility] calling asking for EKG result to be faxed to them at [phone] successfully faxed K CARRIER documented in this encounter Plan of Treatment Upcoming Encounters Date Type Department Care Team (Late st Contact Info) Description 05/17/2024 2:45 PM CLERK CARRIER Office Visit [facility] - Endocrinology - [place] #2 [place] [address] Annel Rod MD #[address] [facility] [address] [place] [address] documented as of this encounter Visit Diagnoses Not on filedocumented in this encounter Additional Health Concerns Assessment Noted Time PHQ-9 Depression Total Score: 0 09/08/19 19 1:00 PM CDT documented as of this encounter Care Teams Electromechanical Equipment Assembler Relationship Specialty Start Date End Date Justen Gale MD #[address] [facility] [address] [place] [address] PCP - General Family Medicine 10/17/17 documented as of this encounter
--- OUTSIDE RECORDS SUMMARY | 2024-04-26 03:02 | XMS_ITS | Encounter Summary ---
Author Organization [facility] Address [address] [place] [address] Phone Care Team Providers Care Bureau Director Name Role Phone Justen Gale MD Primary Care Provider Reason for Visit * Reason Onset Date Comments Chest Pain 06/13/2019 Encounter Details Date Type Department Care Team (Late st Contact Info) Description 06/13/2019 Nurse Triage [facility] [address] [place], [place] [id number] Justen Gale MD #[address] [address] Chest Pain Social History Tobacco Use Types [...] Encounter - Lakisha Anglin RN - 06/13/2019 4:05 PM CST SITUATION: Chest pain BACKGROUND: Symptoms started last night. Went to ED for this a week ago and nothing was found, stopped, but came back ASSESSMENT: Symptom Description / Location: Patient is calling and complains of left sided chest pain that radiates to her armpit when laying down. She states today it has not gone away. Denies any problems breathing. Pain (0-10): moderate Temp: denies fever Treatment / Response: sitting up RECOMMENDATION: See care advice and disposition for Guideline First positive answer recorded, all responses to prior questions were negative. If symptoms increase, change or if new symptoms develop, call your HCP or call back. Recommendations were based on caller information and is not a diagnosis. Verified and reviewed all triage information with caller. Reason for Disposition ??? Chest pain lasting longer than 5 minutes Protocols used: CHEST PAIN-A-OH Advised patient to go to ED. Patient is in agreeance. F NURSE documented in this encounter Plan of Treatment Upcoming Encounters Date Type Department Care Team (Late st Contact Info) Description 05/17/2024 2:45 PM CHIEF NURSE Office Visit [facility] - Endocrinology [facility] #2 [place] [address] Annel Rod MD #[address] [address] documented as of this encounter Visit Diagnoses Not on filedocumented in this encounter Additional Health Concerns Assessment Noted Time PHQ-9 Depression Total Score: 0 09/08/19 19 1:00 PM CDT documented as of this encounter Care Teams Bureau Director Relationship Specialty Start Date End Date Justen Gale MD #2 [facility] [address] [place] [address] PCP - General Family Medicine 10/17/17 documented as of this encounter
--- OUTSIDE RECORDS SUMMARY | 2024-04-26 03:02 | XMS_ITS | Encounter Summary ---
Author Organization [facility] Address [address] [place] [address] Phone Care Team Providers Care Automobile Mechanic Name Role Phone Justen Gale MD Primary Care Provider Encounter Details Date Type Department Care Team (Late st Contact Info) Description 07/26/2019 Telephone [facility] #2 [place] [address] Justen Gale MD #[address] [address] Social History Tobacco Use Types Packs/Day Years [...] Miscellaneous Notes * Telephone Encounter - Dannielle Duong RMA - 07/29/2019 8:32 AM CDT Spoke to patient and informed Your numbers look fine. No signs infection. If no better in next 1-2 weeks, call or make ov. Call sooner if gets worse. Pt voiced understanding. * Telephone Encounter - Justen Gale MD - 07/26/2019 2:54 PM CDT Please call. Your numbers look fine. No signs infection. If no better in next 1- 2 weeks, call or make ov. Call sooner if gets worse. documented in this encounter Plan of Treatment Upcoming Encounters Date Type Department Care Team (Late st Contact Info) Description 05/17/2024 2:45 PM TECHNICAL RECRUITER Office Visit [facility] - Endocrinology [facility] #2 [place] [address] Annel Rod MD #2 [facility] [address] [place] [address] documented as of this encounter Visit Diagnoses Not on filedocumented in this encounter Additional Health Concerns Assessment Noted Time PHQ-9 Depression Total Score: 0 09/08/19 19 1:00 PM CDT documented as of this encounter Care Teams Automobile Mechanic Relationship Specialty Start Date End Date Justen Gale MD #2 [facility] [address] [place] [address] PCP - General Family Medicine 10/17/17 documented as of this encounter
--- OUTSIDE RECORDS SUMMARY | 2024-04-26 03:02 | XMS_ITS | Encounter Summary ---
Author Organization [facility] [employer] Care Team Providers Care Mill Labor Supervisor Name Role Phone Justen Gale MD Primary Care Provider [phone] Encounter Details Date Type Department Care Team (Latest Contact Info) Description 07/26/2019 Travel Social History Tobacco Use Types Packs/Day [...] st Contact Info) Description 05/17/2024 2:45 PM RACE CAR DRIVER [facility] - [place] #[address] [place] [address] Annel Rod MD #[address] [place] [address] [phone] documented as of this encounter Visit Diagnoses Not on filedocumented in this encounter Additional Health Concerns Assessment Noted Time PHQ-9 Depression Total Score: 0 09/08/19 19 1:00 PM CDT documented as of this encounter Care Teams Mill Labor Supervisor Relationship Specialty Start Date End Date Justen Gale MD #2 [place] [address] PCP - General Family Medicine 10/17/17 documented as of this encounter
--- OUTSIDE RECORDS SUMMARY | 2024-04-26 03:02 | XMS_ITS | Encounter Summary ---
Author Organization [facility] Address [address] [place] [address] Phone Care Team Providers Care Radio Commentator Name Role Phone Justen Gale MD Primary Care Provider [phone] Reason for Visit * Reason Onset Date Comments Constipation 07/25/2019 Encounter Details Date Type Department Care Team (Late st Contact Info) Description 07/25/2019 Nurse Triage [facility] [address] [place], [place] [phone] Justen Gale MD #[address] [address] Constipation Social History Tobacco Use Types Packs/Day Years [...] Telephone Encounter - Jennifer Kumari RN - 07/25/2019 10:06 AM CDT SITUATION: Patient calling and reporting that she spoke with a nurse on 07/17/2019. Patient reportsshe has tried mirilax and does not think that she is emptying. Patient reports she is nauseated. Patient denies any vomiting. Last bm today 07/25/2019 and noted to small and soft. Denies any bloody, black or tarry stool. Patient noted blood on tissue x 1 few days ago and thinks it was from a hemorrhoid. Telephone ov scheduled for 07/25/2019. BACKGROUND: 07/17/2019 ASSESSMENT: Symptom Description / Location: nausea and does not feel like she is emptying out after having a bm. Pain (0-10): patient denies Temp: patient denies Treatment / Response: mirilax LMP / / : postmenopausal RECOMMENDATION: See care advice and disposition for Guideline First positive answer recorded, all responses to prior questions were negative. If symptoms increase, change or if new symptoms develop, call your HCP or call back. Recommendations were based on caller information and is not a diagnosis. Verified and reviewed all triage information with caller. Reason for Disposition ??? Unable to have a bowel movement (BM) without using a laxative, suppository, or enema Protocols used: [id number]-UP documented in this encounter Plan of Treatment Upcoming Encounters Date Type Department Care Team (Late st Contact Info) Description 05/17/2024 2:45 PM HEAVY DUTY PRESS OPERATOR Office Visit [facility] - Endocrinology - [place] #2 [place] [phone] Annel Rod MD [address] [address] documented as of this encounter Visit Diagnoses Not on filedocumented in this encounter Additional Health Concerns Assessment Noted Time PHQ-9 Depression Total Score: 0 09/08/19 19 1:00 PM CDT documented as of this encounter Care Teams Radio Commentator Relationship Specialty Start Date End Date Justen Gale MD #2 [place] [id number] PCP - General Family Medicine 10/17/17 documented as of this encounter
--- OUTSIDE RECORDS SUMMARY | 2024-04-26 03:02 | XMS_ITS | Encounter Summary ---
Author Organization [facility] Address [address] [place] [address] Phone Care Team Providers Care Ceramics Test Engineer Name Role Phone Justen Gale MD Primary Care Provider Reason for Visit * Reason Onset Date Comments Pre-Operative Exam 04/22/2019 Encounter Details Date Type Department Care Team (Late st Contact Info) Description 04/22/2019 Telephone [facility] - Family Medicine [facility] #2 [place] [phone] Justen Gale MD #[address] [address] Pre-Operative Exam Social History Tobacco Use Types Packs/Day Years [...] Miscellaneous Notes * Telephone Encounter - Christin Hay RN - 05/23/2019 2:55 PM CST Received completed clearance form from PCP. Faxed successfully to Dr. Mensah's office. GER MACHINE OPERATOR * Telephone Encounter - Christin Hay RN - 05/23/2019 10:02 AM PLUNGER MACHINE OPERATOR Received request for updated clearance from Dr. Mensah's office. Patients surgery was rescheduled to 06/05/2019. Is provider willing to sign updated clearance? Please advise. Forms placed on PCP desk. GER MACHINE OPERATOR * Telephone Encounter - Jennifer Kumari RN - 04/23/2019 3:03 PM PLUNGER MACHINE OPERATOR Lupe with outpatient registration calling and reporting [facility] cannot see the chest xray order. Chest xray noted to be . Order extended. Lupe could see the order. GER MACHINE OPERATOR * Telephone Encounter - Christin Hay RN - 04/22/2019 2:03 PM CST Patient was seen in office for preoperative exam on 04/15/2019. Dr. Mensah's office sent clearance request form to our office. Patient has not completed labs or chest xray that PCP ordered on 04/15/2019 for preoperative testing. Patient must complete this testing before this office can complete clearance form. Attempted to contact patient x2, no answer and no voicemail picked up. GER MACHINE OPERATOR documented in this encounter Plan of Treatment Upcoming Encounters Date Type Department Care Team (Late st Contact Info) Description 05/17/2024 2:45 PM PLUNGER MACHINE OPERATOR Office Visit [facility] - Endocrinology - [place] #2 [place] [address] Annel Rod MD #[address] [address] documented as of this encounter Visit Diagnoses Not on filedocumented in this encounter Additional Health Concerns Assessment Noted Time PHQ-9 Depression Total Score: 0 09/08/19 19 1:00 PM CDT documented as of this encounter Care Teams Ceramics Test Engineer Relationship Specialty Start Date End Date Justen Gale MD #2 [place] [address] PCP - General Family Medicine 10/17/17 documented as of this encounter
--- OUTSIDE RECORDS SUMMARY | 2024-04-26 03:02 | XMS_ITS | Encounter Summary ---
Author Organization [facility] Address [address] [place] [address] Phone Care Team Providers Care Mid Level Business Analyst Name Role Phone Justen Gale MD Primary Care Provider [phone] Reason for Visit * Reason Onset Date Comments Nausea 09/02/2019 Constipation 09/02/2019 Encounter Details Date Type Department Care Team (Late st Contact Info) Description 09/02/2019 Telephone [facility] #2 [place] [phone] Justen Gale MD #[address] [address] Nausea; Constipation Social History Tobacco Use Types Packs/Day [...] Miscellaneous Notes * Telephone Encounter - Heaven Flores, RN - 09/04/2019 9:05 AM CDT Patient is calling about nurse triage 09/01/19. Patient was given the information and verbalized understanding. Patient is asking if PCP can call something in for her nausea so she can take the metamucil? Pleaseadvise * Telephone Encounter - Justen Gale MD - 09/02/2019 4:17 PM CDT Please call. I would use the miralax as needed. Try to get more fiber in your diet. Try metamucil once daily for a week then increase to twice daily. That should help move stuff along. documented in this encounter Plan of Treatment Upcoming Encounters Date Type Department Care Team (Late st Contact Info) Description 05/17/2024 2:45 PM GROUP PROGRAM MANAGER Office Visit [facility] - Endocrinology - [place] #2 [place] [address] Annel Rod MD #[address] [facility] [address] [place] [address] documented as of this encounter Visit Diagnoses Not on filedocumented in this encounter Additional Health Concerns Assessment Noted Time PHQ-9 Depression Total Score: 0 09/08/19 19 1:00 PM CDT documented as of this encounter Care Teams Mid Level Business Analyst Relationship Specialty Start Date End Date Justen Gale MD #[address] [facility] [address] [place] [address] PCP - General Family Medicine 10/17/17 documented as of this encounter
--- OUTSIDE RECORDS SUMMARY | 2024-04-26 03:02 | XMS_ITS | Encounter Summary ---
Author Organization [facility] Address [address] [place] [address] Phone Care Team Providers Care Rotary Shear Operator Name Role Phone Justen Gale MD Primary Care Provider [phone] Reason for Referral * Consult, Test & Initiate Treatment (Less Than 1 Week) - Closed Specialty Diagnoses / Procedures Referred By Contac t Referred To Contact Diagnoses Left foot pain Justen Gael MD #[address] [address] Phone: tel: fax: Referral ID Status Reason Start Date Expiration Date Visits Re quested Visits Authorized [id number] Closed 05/21/2019 1 1 Scheduling Instructions Karly is being referred to director of first impressions or other specialist in patient's insurance network for left foot pain. See below for Karly's current medications, allergies [...] oxybutynin (DITROPAN) 5 MG Tablet, Take 1 Tab by mouth 2 times daily., Disp: 180 Tab, Rfl: 1 Polyethylene Glycol 3350 (MIRALAX PO), Take by [...] to 59.9 in adult (HCC) Thyroid nodule OCOPYING EQUIPMENT REPAIRER Encounter Details Date Type Department Care Team (Late st Contact Info) Description 05/21/2019 Telephone [facility] [address] [place] [address] Justen Gale MD #[address] [address] Social History Tobacco Use Types Packs/Day Years [...] Encounter - Christin Hay RN - 05/23/2019 2:48 PM CST See telephone encounter from 04/22/2020 regarding preop exam. OCOPYING EQUIPMENT REPAIRER * Telephone Encounter - Jennifer Kumari RN - 05/22/2019 1:56 PM PHOTOCOPYING EQUIPMENT REPAIRER Patient calling and reporting that her current foot doctor, Dr. Ham, called her on 05/22/2019and they will get patient scheduled for surgery on 06/05/2019. Patient wanted to update PCP. Patient reports that the foot doctor was able to move up her surgery date. Patient reports Dr. Ham's office is going to be faxing over a form for PCP to fill out prior to patient surgery. OCOPYING EQUIPMENT REPAIRER * Telephone Encounter - Radha Billy RN - 05/21/2019 2:13 PM PHOTOCOPYING EQUIPMENT REPAIRER Patient calling asking for a referral to a new director of first impressions. States she is not happy with the currentpodiatrist. Referral pended for your approval OCOPYING EQUIPMENT REPAIRER documented in this encounter Plan of Treatment Upcoming Encounters Date Type Department Care Team (Late st Contact Info) Description 05/17/2024 2:45 PM PHOTOCOPYING EQUIPMENT REPAIRER Office Visit [facility] - Endocrinology - [place] #2 [place] [address] Annel Rod MD #2 [facility] [address] [place] [address] documented as of this encounter Results * EXTERNAL PODIATRY REFERRAL (06/10/2019) us Justen Gale MD OUTPT REFERRALS EXT/INT Final Result documented in this encounter Visit Diagnoses Diagnosis Left foot pain- Primary Pain in limb documented in this encounter Additional Health Concerns Assessment Noted Time PHQ-9 Depression Total Score: 0 09/08/19 19 1:00 PM CDT documented as of this encounter Care Teams Rotary Shear Operator Relationship Specialty Start Date End Date Justen Gale MD #2 [facility] [address] [place] [address] PCP - General Family Medicine 10/17/17 documented as of this encounter
--- OUTSIDE RECORDS SUMMARY | 2024-04-26 03:02 | XMS_ITS | Encounter Summary ---
Author Organization [facility] [employer] Care Team Providers Care Air Route Controller Name Role Phone Justen Gale MD Primary Care Provider [phone] Encounter Details Date Type Department Care Team [...] st Contact Info) Description 05/17/2024 2:45 PM HAY STACKER Office Visit [facility] - [facility] - [place] #[address] [place] [address] Annel Rod MD #2 [facility] [address] [address] documented as of this encounter Visit Diagnoses Not on filedocumented in this encounter Additional Health Concerns Infection Onset Date Last Indicated Resolved Time COVID - 19 09/05/2019 09/06/2019 10/03/2019 12:1 7 AM CDT Assessment Noted Time PHQ-9 Depression Total Score: 0 09/08/19 1:00 PM CDT documented as of this encounter Care Teams Air Route Controller Relationship Specialty Start Date End Date Justen Gale MD #2 [place] [id number] PCP - General Family Medicine 10/17/17 documented as of this encounter
--- OUTSIDE RECORDS SUMMARY | 2024-04-26 03:02 | XMS_ITS | Encounter Summary ---
Author Organization [facility] Address [address] [place] [address] Phone Care Team Providers Care Material Combiner Name Role Phone Justen Gale MD Primary Care Provider [phone] Encounter Details Date Type Department Care Team (Late st Contact Info) Description 07/26/2019 11:00 AM CDT Lab [facility] [facility] [address] [place] [address] Everardo Jackson Lab/Ancillary Nausea; Hyperthyroidism Discharge Disposition: Discharged to home or Selfcare [...] AM CDT documented as of this encounter Progress Notes * Candy Castellanos RMA - 07/26/2019 11:00 AM CDT Karly presents for lab draw per order of dr gale dated 07/26/19. Specimen collected from right antecubital without incident. sah documented in this encounter Plan of Treatment Upcoming Encounters Date Type Department Care Team (Late st Contact Info) Description 05/17/2024 2:45 PM CYBER REVERSE ENGINEER Office Visit [facility] - Endocrinology - [place] [address] [place] [phone] Annel Rod MD #[address] [address] documented as of this encounter Procedures Procedure Name Priority Date/Time Associated Diagnosis Comments CBC WITH AUTO DIFFERENTIAL Today 07/26/2019 11:28 AM CDT Nausea Hyperthyroidism THYROID STIMULATING HORMONE (TSH) Today 07/26/2019 11:28 AM CDT Nausea Hyperthyroidism CMP (COMPREHENSIVE METABOLIC PANEL) Today 07/26/2019 11:28 AM CDT Nausea Hyperthyroidism COMPLETE BLOOD COUNT (CBC) WITH DIFF Today 07/26/2019 11:28 AM CDT Nausea Hyperthyroidism documented in this encounter Results * (ABNORMAL) CBC WITH AUTO DIFFERENTIAL (07/26/2019 11:28 AM CDT) WBC 9.29 4.00 - 12.00 10(3)/mcL 07/26/2019 11:56 AM CDT [facility] RBC 4.34 3.80 - 5.30 10(6)/mcL 07/26/2019 11:56 AM CDT [facility] HEMOGLOBIN (HGB) 12.4 12.0 - 15.8 g/dL 07/26/2019 11:56 AM CDT [facility] HEMATOCRIT (HCT) 40.9 36.0 - 47.0 % 07/26/2019 11:56 AM CDT [facility] MCV 94.2 82.0 - 96.0 fL 07/26/2019 11:56 AM CDT [facility] MCH 28.6 26.0 - 34.0 pg 07/26/2019 11:56 AM CDT [facility] MCHC 30.3(L) 31.0 - 36.0 g/dL 07/26/2019 11:56 AM CDT [facility] PLATELET COUNT 313 140 - 440 10(3)/mcL 07/26/2019 11:56 AM CDT [facility] RDW 14.5 11.8 - 15.5 % 07/26/2019 11:56 AM CDT [facility] MPV 9.7 9.7 - 12.4 fL 07/26/2019 11:56 AM CDT [facility] NEUTROPHILS 57.9 47.0 - 73.0 % 07/26/2019 11:56 AM CDT [facility] LYMPHOCYTES 32.2 18.0 - 42.0 % 07/26/2019 11:56 AM CDT [facility] MONOCYTES 6.7 4.0 - 12.0 % 07/26/2019 11:56 AM CDT [facility] EOSINOPHILS 2.9 0.0 - 5.0 % 07/26/2019 11:56 AM CDT [facility] BASOPHILS 0.3 0.0 - 1.0 % 07/26/2019 11:56 AM CDT [facility] ABSOLUTE NEUTROPHILS 5.38 1.60 - 7.70 10(3)/mcL 07/26/2019 11:56 AM CDT [facility] ABSOLUTE LYMPHOCYTES 2.99 1.30 - 3.20 10(3)/mcL 07/26/2019 11:56 AM CDT [facility] ABSOLUTE MONOCYTES 0.62 0.20 - 1.00 10(3)/mcL 07/26/2019 11:56 AM CDT [facility] ABSOLUTE EOSINOPHIL 0.27 0.00 - 0.40 10(3)/mcL 07/26/2019 11:56 AM CDT [facility] ABSOLUTE BASOPHILS 0.03 0.00 - 0.10 10(3)/mcL 07/26/2019 11:56 AM CDT [facility] NRBC PER 100 WBC 0 07/26/19 20 11:56 AM CDT [facility] Blood specimen (specimen) Venipuncture / Unknown 07/26/2019 11:28 AM CDT 07/26/2019 11:28 AM CDT us Justen Gale MD HEMATOLOGY ORDERABLES Final R esult [facility] #[address] [place] [address] * (ABNORMAL) CMP (COMPREHENSIVE METABOLIC PANEL) (07/26/2019 11:28 AM CDT) SODIUM 138 136 - 144 mmol/L 07/26/2019 12:25 PM CDT [facility] POTASSIUM 4.6 3.5 - 5.1 mmol/L 07/26/2019 12:25 PM CDT [facility] CHLORIDE 100 100 - 110 mmol/L 07/26/2019 12:25 PM CDT [facility] CO2, VENOUS 27 22 - 32 mmol/L 07/26/2019 12:25 PM CDT [facility] ANION GAP 15.6 8.0 - 20.0 mmol/L 07/26/2019 12:25 PM CDT [facility] GLUCOSE 133(H) 70 - 99 mg/dL 07/26/2019 12:25 PM CDT [facility] BUN 18 8 - 23 mg/dL 07/26/2019 12:25 PM CDT [facility] CREATININE, BLOOD 0.74 0.60 - 1.10 mg/dL 07/26/2019 12:25 PM CDT [facility] BUN/CREATININE RATIO 24(H) 12 - 20 ratio 07/26/2019 12:25 PM CDT [facility] TOTAL PROTEIN 8.2 6.0 - 8.3 g/dL 07/26/2019 12:25 PM CDT [facility] ALBUMIN 3.8 3.5 - 5.2 g/dL 07/26/2019 12:25 PM CDT [facility] Comment: The colormetric methods used for the determination of Albumin may lead to falsely elevated test results in patients suffering from renal failure or insufficiency due to interference with other proteins. A/G RATIO 0.9(L) 1.0 - 2.0 07/26/2019 12:25 PM CDT [facility] CALCIUM 9.7 8.9 - 10.3 mg/dL 07/26/2019 12:25 PM CDT [facility] T BILI 0.6 <=1.2 mg/dL 07/26/2019 12:25 PM CDT [facility] SGOT (AST) 18 <=32 U/L 07/26/2019 12:25 PM CDT [facility] SGPT (ALT) 20 <=33 U/L 07/26/2019 12:25 PM CDT [facility] ALKALINE PHOSPHATASE 88 35 - 105 U/L 07/26/2019 12:25 PM CDT [facility] GFR, EST. NONAFRICAN >60 >=60 07/26/2019 12:25 PM CDT [facility] GFR, EST. >60 >=60 020 12:25 PM CDT [facility] Comment: Creatinine Clearance is the preferred criteria for selecting drug dose adjustments in renally impaired patients. ??The GFR is provided as additional pertinent clinical information. GFR is reported in mL/min/1.73 sq m. Blood specimen (specimen) Venipuncture / Unknown 07/26/2019 11:28 AM CDT 07/26/2019 11:28 AM CDT us Justen Gale MD CHEMISTRY ORDERABLES Final Re sult [facility] [address] [place] [address] * THYROID STIMULATING HORMONE (TSH) (07/26/2019 11:28 AM CDT) TSH 3.960 0.270 - 4.200 mIU/L 07/26/2019 12:25 PM CDT [facility] Blood specimen (specimen) Venipuncture / Unknown 07/26/2019 11:28 AM CDT 07/26/2019 11:28 AM CDT us Justen Gale MD CHEMISTRY ORDERABLES Final Re sult [facility] [address] [place] [address] documented in this encounter Visit Diagnoses Diagnosis Nausea Nausea alone Hyperthyroidism Thyrotoxicosis without mention of goiter or other cause, without mention of thyrotoxic crisis or storm documented in this encounter Additional Health Concerns Assessment Noted Time PHQ-9 Depression Total Score: 0 09/08/19 19 1:00 PM CDT documented as of this encounter Care Teams Material Combiner Relationship Specialty Start Date End Date Justen Gale MD [address] [address] PCP - General Family Medicine 10/17/17 documented as of this encounter
--- OUTSIDE RECORDS SUMMARY | 2024-04-26 03:02 | XMS_ITS | Encounter Summary ---
Author Organization [facility] Address [address] [facility] [place] [address] Phone Care Team Providers Care Spot Man Name Role Phone Justen Gale MD Primary Care Provider [phone] Reason for Visit * Reason Onset Date Comments COVID-19 09/05/2019 Nausea 09/05/2019 Chills 09/05/2019 Shortness of Breath 09/05/2019 Encounter Details Date Type Department Care Team ([facility] Contact Info) Description 09/05/2019 Nurse Triage [facility] Digital Contact Center [address] [place] [address] Justen Gale MD [address] [address] COVID-19; Nausea; Chills; Shortness of Breath Social History Tobacco Use [...] Miscellaneous Notes * Telephone Encounter - Radha Sterling RN - 09/05/2019 2:06 PM CDT Nurse to triage according to symptoms. SITUATION: Patient calling with Chills;Shortness of breath nausea from food smells, mild-mod headaches, drained feeling, shortness of breath when eating, just doesn't feel good all over BACKGROUND: about 4 weeks ago felt constipated from pain meds and felt sick, got better for about 2weeks, past weekend started feeling sick again. Monday PCP notified and pt was told to take metamucil and prescribed zofran for the nausea but it has not helped. The chills and shortness of breath, nausea started this past weekend. Denies sore thoat, cough, loss of taste/smell. Pt has DM2, denies heart problems. Has had bilateral PE 2018 and blood clot in leg 2017. Breast Cancer 2016 had chemo. ASSESSMENT: Symptom Description / Location: chills, nausea and vomiting--vomited after dinner last night and again after lunch today. Shortness breath feels worse when eating but does notice it otherwise. Denieschest pain/tightness or pressure. Pain (0-10): 2-3/10 headache slight and constant Temp: does not have a thermometer Treatment / Response: 1 norco about 6 hours ago, tylenol 650mg last night for headache- no relief, zofran this morning - no relief RECOMMENDATION: Get a thermometer, check temperature twice daily, treat fever >101. Stay hydrated. Reviewed home care for COVID. Scheduled TELEPHONE appt. with [facility] provider. For Home Care advice: Patient counseled to remain at home. If symptoms worsen, the patient counseled to call back. If symptoms are severe, the patient instructed to call 911 or go to ED immediately. ??? Patient to push fluid intake and take Tylenol PRN for fever, body aches. ??? If you do not live alone: segregate yourself, use a separate bathroom if possible, sleep in a separate area, have no/limited family time, and the person with symptoms is not to prepare food for others. How to Discontinue Home Isolation People with COVID-19 (or have had COVID-19 type symptoms) who have stayed home (home isolated) can stop home isolation under the following conditions: 1. No fever (100.0 for HCW, 100.4 for lay people) for 3 days (without the use of fever reducing medicine) AND 2. Other symptoms have improved (i.e. cough, SOB) AND 3. At least 10 days have passed since your symptoms first appeared Caller verbalizes understanding of the above information. Reason for Disposition ? ? MILD to MODERATE vomiting (e.g., 1-5 times/day) and lasts > 48 hours (2 days) ??? [1] COVID-19 infection diagnosed or suspected AND [2] mild symptoms (fever, cough) AND [3] no trouble breathing or other complications Protocols used: [id number], CORONAVIRUS (COVID-19) DIAGNOSED OR [id number] * Telephone Encounter - Aislinn Jeter, RN HOME HEALTH-SPEECH LANGUAGE PATHOLOGIST - 09/05/2019 1:58 PM CDT Images from the original note were not included. Travel Screening Question Response Do you have any of the following symptoms? Chills;Shortness of breath (nausea from food smells, mild-mod headaches, drained feeling, shortness of breath when eating, just doesn't feel good all over) In the last month, have you been in contact with someone who was confirmed or suspected to have Coronavirus / COVID-19? No / Unsure Have you traveled internationally in the last month? No Travel History Travel since 08/06/19 No documented travel since 08/06/19 zofran doesn't help at all. Diabetic, overweight,hypertension, history of blood clots, previous breast cancer Patients whose symptoms require immediate emergency assistance should be directed to contact 911 for emergency assistance. If the triage nurse is calling 911, notify them of the negative screening. Screening Positive/Negative? NEGATIVE Patient is experiencing COVID-19 type symptoms but has not been exposed or travelled - Educate patient using CDC care guidelines and ask patient/caller if they would like to speak to buyer planner. Did patient request buyer planner? yes ??? Patient counseled to remain at home unless symptoms get worse and to quarantine for 14 days from symptom onset. ??? Patient to push fluid intake and take medication for fever if needed. ??? If you do not live alone: segregate yourself, use a separate bathroom if possible, sleep in a separate area, have no family time, and the person with symptoms is not to prepare food for others. ??? If symptoms worsen the patient was counseled to call back to their primary care provider office. ??? Seek emergency care only if symptoms warrant. How to Discontinue Home Isolation People that have home isolated for 14 days. If symptoms have not developed once 14 days are passed;the self-isolation may stop. People with COVID-19 type symptoms who have stayed home (home isolated) can stop home isolation under the following conditions: 1. No fever (100.0 for HCW, 100.4 for lay people) for 3 days (without the use of fever reducing medicine) AND 2. Other symptoms have improved (i.e. cough, SOB) AND 3. At least 10 days have passed since your symptoms first appeared Caller verbalizes understanding of the above information. AISLINN JETER, RN HOME HEALTH-SPEECH LANGUAGE PATHOLOGIST documented in this encounter Plan of Treatment Upcoming Encounters Date Type Department Care Team (Late st Contact Info) Description 05/17/2024 2:45 PM INDUSTRIAL ORGANIZATION MANAGER Office Visit [facility] - Endocrinology [facility] [address] [place] [phone] Annel Rod MD [address] [phone] documented as of this encounter Visit Diagnoses Not on filedocumented in this encounter Additional Health Concerns Assessment Noted Time PHQ-9 Depression Total Score: 0 09/08/19 19 1:00 PM CDT documented as of this encounter Care Teams Spot Man Relationship Specialty Start Date End Date Justen Gale MD #2 [place] [address] PCP - General Family Medicine 10/17/17 documented as of this encounter
--- OUTSIDE RECORDS SUMMARY | 2024-04-26 03:02 | XMS_ITS | Encounter Summary ---
Author Organization [facility] Address [address] [facility] [place] [address] Phone Care Team Providers Care Leather Belt Maker Name Role Phone Justen Gale MD Primary Care Provider [phone] Reason for Visit * Reason Onset Date Comments COVID-19 09/05/2019 Encounter Details Date Type Department Care Team (Late st Contact Info) Description 09/05/2019 2:30 PM CDT Telemed[facility] Digital Contact Center [address] [place] [address] Fabiola Carlin APRN, NETTA Shortness of breath (Primary Dx); Nausea and vomiting, intractability of vomiting not specified, unspecified vomiting type Discharge Disposition: Discharged to [...] as of this encounter Progress Notes * Fabiola Carlin APN, NETTA - 09/05/2019 2:30 PM CDT [facility] SUBJECTIVE Chief Complaint Patient presents with ??? COVID-19 HPI Pt called the call center. She has had ongoing nausea and constipation. She attributes her constipation to pain medication she took earlier in the month. She is following with her PCP for this. (was prescribed zofran and metamucil)- does appear from prior notes nausea is somewhat chronic. Over the past few days she has been experiencing chills, myalgias, and shortness of breath. She does not have a thermometer and is unsure if she has a fever. She states that activities such as movingaround, lying flat, or eating will cause her to become short of breath. Hx of bilateral PE's and sunny Xarelto. She hasn't missed any doses recently of this. Denies any headaches, runny nose, or sore throat. She has had multiple bowel movements over the past few days. Does notice some abdominal bloating. She lives with her two daughters and grandson. They have been feeling well. Doesn't feel she has been in contact with anyone recently who has been sick. Hx of DM (blood sugar this AM 160). Doeshave a hx of breast cancer. She states that there have been several occassions over the past few days where she has thought about going to the ED for further evaluation. She wants tested for COVID 19. Allergies Allergen Reactions ??? Cephalosporins Anaphylaxis ??? Oxycodone Unknown ??? Reglan [Metoclopramide Hcl] Unknown ??? Trazodone Other (see Comments) Shaky, restlessness, itching, throat swelling Past Medical History Positives Diagnosis Date ??? Breast cancer (HCC) ??? Diabetes (HCC) ??? DVT (deep venous thrombosis) (HCC) ??? High blood pressure ??? History of pulmonary embolus (PE) ??? Hyperthyroidism ??? Neuropathy ??? Osteoarthritis ??? Restless leg syndrome ??? Sciatica ??? Sleep apnea ??? Spinal stenosis Social History Substance and Sexual Activity Alcohol Use No Social History Tobacco Use Smoking Status Never Smoker Smokeless Tobacco Never Used Current Outpatient Medications on File Prior to [...] times daily. (Patient not taking: Reported on 09/05/2019) 90 Cap 0 ??? Glucose Blood (ONE [...] daily. 90 Tab 3 ??? Misc. Devices [facility] and instructions: 1 Each 0 ??? ondansetron (ZOFRAN) 4 MG Tablet Take 1 Tab by mouth every 8 hours as needed for Nausea - 1st line. 15 Tab 0 ??? ondansetron (ZOFRAN) 4 MG Tablet [...] facility-administered medications on file prior to visit. Patient Active Problem List Diagnosis ??? Physical exam, annual (Adult) ??? High blood pressure ??? Type 2 diabetes mellitus with diabetic polyneuropathy, with long-term current use of insulin (HCC) ??? Acute deep vein thrombosis (DVT) of proximal vein of right lower extremity (HCC) ??? Spinal stenosis of lumbar region without neurogenic claudication ??? 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 Restless legs syndrome ??? LUL (obstructive sleep apnea) ??? Hyperthyroidism ??? Dysuria ??? Acute cystitis without hematuria ??? Acute left-sided low back pain with left-sided sciatica ??? Arthralgia of ankle ??? 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 ??? Cancer of overlapping sites of left female breast (HCC) ??? Cellulitis of breast ??? Chest pressure ??? Chronic anticoagulation ??? Constipation ??? Diet-controlled diabetes mellitus (HCC) ??? Dyspnea ??? Generalized weakness ??? History of DVT (deep vein thrombosis) ??? History of pulmonary embolism ??? Long-term current use of opiate analgesic ??? Lumbosacral spondylosis without myelopathy ??? Lymphedema of left upper extremity ??? Morbid obesity with BMI of 50.0-59.9, adult (HCC) ??? Nausea and vomiting ??? Pulmonary embolism (HCC) ??? Radiculopathy, lumbosacral region ??? Syncope ??? Neck pain on right side ??? Speech impairment ??? Neuropathy ??? Class 3 severe obesity due to excess calories with serious comorbidity and body mass index (BMI) of 50.0 to 59.9 in adult (HCC) ??? Thyroid nodule Review of Systems Chief complaint and all history documented by ancillary staff were reviewed and verified with additions or corrections as appropriate. OBJECTIVE Speaking in complete sentences. No distress or coughing noted during dialogue. Physical Exam ASSESSMENT/PLAN -Evaluation at [facility] in [facility] today (did call over and they are willing to see her). -COVID 19 testing- contacted [facility]. They will call her to arranged testing -Continue following with PCP for nausea and emesis. Continue taking zofran as prescribed and eatingsmall meals -Discussed home Quarantine Education (as applicable): If symptomatic or symptoms develop within those 14 days of quarantine, stay home until these three things have happened: - No fever for 3 days (without the use of medicine) AND - Other symptoms have improved (ie cough, SOB) AND - at least 7 days have passed since your symptoms first appeared - Patient to push fluid intake and take Tylenol PRN for fever, body aches. - If you do not live alone: segregate yourself, use a separate bathroom if possible, sleep in a separate area, have no/limited family time, and the person with symptoms is not to prepare food for others. - Per CDC: Employers should not require a positive COVID-19 test result or a healthcare provider's note for employees who are sick to validate their illness, qualify for sick leave, or to return to work. [facility] is not providing excuse for work notes or return to work notes at this time per CDC recommendations. Caller verbalizes understanding of the above information. Recommended disposition of further evaluation at [facility] today supported by the above documentation. Patient agreed with disposition. Diagnoses and all orders for this visit: Nausea and vomiting, intractability of vomiting not specified, unspecified vomiting type - SARS-COV-2 BY PCR; Future Patient was assessed via telephone for a duration of 0-15 minutes. Patient verbally consented for this service to be performed. - FABIOLA SERNA APN, NETTA documented in this encounter Plan of Treatment Upcoming Encounters Date Type Department Care Team (Late st Contact Info) Description 05/17/2024 2:45 PM TAPE MAKER Office Visit [facility] - [place] [address] [place] [phone] Annel Rod MD #2 [facility] [address] [place] [phone] documented as of this encounter Visit Diagnoses Diagnosis Shortness of breath- Primary Nausea and vomiting, intractability of vomiting not specified, unspecified vomiting type documented in this encounter Additional Health Concerns Assessment Noted Time PHQ-9 Depression Total Score: 0 09/08/19 19 1:00 PM CDT documented as of this encounter Care Teams Leather Belt Maker Relationship Specialty Start Date End Date Justen Gale MD #[address] [facility] [address] [place] [address] PCP - General Family Medicine 10/17/17 documented as of this encounter
--- OUTSIDE RECORDS SUMMARY | 2024-04-26 03:02 | XMS_ITS | Encounter Summary ---
Author Organization [facility] Address [address] [place] [address] Phone Care Team Providers Care Marketing Ambassador Name Role Phone Justen Gale MD Primary Care Provider [phone] Encounter Details Date Type Department Care Team (Late st Contact Info) Description 07/29/2019 Telephone [facility] #2 [place] [address] Justen Gale MD #[address] [address] Social History Tobacco Use Types Packs/Day Years [...] Telephone Encounter - Dannielle Duong RMA - 07/30/2019 8:34 AM CDT Referral closed. * Telephone Encounter - Justen Gale MD - 07/29/2019 12:37 PM CDT yes * Telephone Encounter - Dannielle Duong RMA - 07/29/2019 12:26 PM CDT Patient was referred to an EXTERNAL PODIATRY REFERRAL. Patient was sent a letter with no response, can we close the referral? documented in this encounter Plan of Treatment Upcoming Encounters Date Type Department Care Team (Late st Contact Info) Description 05/17/2024 2:45 PM SWEATER DESIGNER Office Visit [facility] - Endocrinology [facility] #[address] [place] [address] Annel Rod MD #[address] [address] documented as of this encounter Visit Diagnoses Not on filedocumented in this encounter Additional Health Concerns Assessment Noted Time PHQ-9 Depression Total Score: 0 09/08/19 19 1:00 PM CDT documented as of this encounter Care Teams Marketing Ambassador Relationship Specialty Start Date End Date Justen Gale MD #2 [facility] [address] [place] [address] PCP - General Family Medicine 10/17/17 documented as of this encounter
--- OUTSIDE RECORDS SUMMARY | 2024-04-26 03:02 | XMS_ITS | Encounter Summary ---
Author Organization [facility] Address [address] [place] [address] Phone Care Team Providers Care Pocket Setter Lockstitch Name Role Phone Justen Gale MD Primary Care Provider [phone] Reason for Visit * Reason Onset Date Comments Constipation 09/01/2019 Abdominal Pain 09/01/2019 High Blood Sugar 09/01/2019 insulin depende nt diabetic Encounter Details Date Type Department Care Team (Late st Contact Info) Description 09/01/2019 Nurse Triage [facility] [address] [place] [address] Justen Gale MD [address] [address] Constipation; Abdominal Pain; High Blood Sugar (insulin dependent diabetic) Social History Tobacco Use Types Packs/Day Years [...] Telephone Encounter - Heaven Flores RN - 09/04/2019 9:08 AM CDT See encounter 09/02/19 * Telephone Encounter - Jennifer Kumari RN - 09/02/2019 2:55 PM CDT Patient calling about messages below. Please review nurse triage's x 2. Patient reports she has very little bm and then walks around and has to go again. Please advise. * Telephone Encounter - Samantha Peterson RN - 09/01/2019 8:57 PM CDT SITUATION (caller perception/concerns): Patient is Diabetic and checks sporadically but suppose to take 3 times a day BACKGROUND (events leading up to call): ASSESSMENT: Onset: today Current blood glucose: 319 mg/dl Acute Symptoms: shaky Recent diet changes or procedures:skipped lunch today slept through it Current diabetes medications/insulin reviewed and listed: Humalog Lispro 24 units 3 times daily; 26units at bedtime, plus a sliding scale; Lantus 50 units every morning. Last DM medication/insulin was Humalog 28 units about 3 hours ago(plus sliding scale included) Blood glucose readings for last 3 days (in mg/dl): Date breakfast lunch dinner hour of sleep 09/01/19 166 n/a 240 n/a Pain: (0-10): 4/10 Temp (route,time): denies Other Symptoms: see above Treatment with response: Last appointment: 08/13/2019 Next appointment with provider: 11/18/2019 RECOMMENDATION: Home Care See care advice and disposition for guideline. First positive answer recorded; all responses to prior questions were negative. If symptoms increase, change, or if new symptoms develop, call your PCP or call back. Recommendation is based on caller information and are not a diagnosis. Verified and reviewed all triage information with caller. Caller verbalized understanding of information given and denies further questions. Teach-back method utilized. * Telephone Encounter - Samantha Peterson RN - 09/01/2019 8:50 PM CDT SITUATION (caller perception/concerns): patient calling about being constipated., feeling nauseous and shaky. BACKGROUND (events leading up to call): I wake up feeling like I have to go poop, but then I hardly go at all. Sees a specialist (provider name, reason): Dr Rod Endocrinology If so, last visit: 08/13/19 History :Diabetes, constipation ASSESSMENT: Onset: 3 to 4 weeks ago Symptoms: I had a bowel movement today that I had to force a little and it seemed like a small amount.I am belching a lot. I feel shaky. This discomfort goes on for 2 to 3 days then feels better for a day or so before sneaking up on me again. enies vomiting, Two days ago I looked like I had granules floating around after urination. Denies Pain:Present now: yes Length of time present: Constant or intermittent: Comes and goes some days worse than others Description of pain: Pain feels like pressure across the belly button area Level of pain: 10 Ability to perform daily activities: able but hinched over when walking Temp (route, time): denies Other Symptoms: see above Treatment with response: I take the Zofran for nausea I get this way . I had a bowel movement yesterday morning after sitting a while and it was soft. I take Miralax, was taking Zofran but have run out.Took Dulcolax for 3 to 4 days ain a row but it did not help anything RECOMMENDATION: Call PCP within 3 days See care advice and disposition for guideline. [...] Teach-back method utilized. Reason for Disposition ??? Unable to have a bowel movement (BM) without laxative or enema ??? [1] Blood glucose 240 - 300 mg/dL (13.3 - 16.7 mmol/L) AND [2] uses insulin (e.g., insulin-dependent, all people with type 1 diabetes) Protocols used: [id number], DIABETES - HIGH BLOOD SUGAR-A-AH * Telephone Encounter - Samantha Peterson RN - 09/01/2019 8:49 PM CDT Images from the original note were not included. Travel Screening Question Response Do you have any of the following symptoms? None of these In the last month, have you been in contact with someone who was confirmed or suspected to have Coronavirus / COVID-19? No / Unsure Have you traveled internationally in the last month? No Travel History Travel since 08/02/19 No documented travel since 08/02/19 Patients whose symptoms require immediate emergency assistance should be directed to contact 911 for emergency assistance. If the triage nurse is calling 911, notify them of the positive screening. Screening Positive/Negative? NEGATIVE Not Symptomatic - Educate patient using CDC care guidelines. At this time, based on our discussion the [facility] health department does not recommend that you have any further testing. We would recommend following the CDC and [facility] department of health guidelines,which include: ?? practicing social distancing (staying 6 feet away from others) ?? washing your hands often ?? keeping yourself hydrated ?? staying home as much as possible If you do develop any symptoms including fever, cough, or shortness of breath please call us back. SAMANTHA PETERSON RN documented in this encounter Plan of Treatment Upcoming Encounters Date Type Department Care Team (Late st Contact Info) Description 05/17/2024 2:45 PM FIELD MECHANIC Office Visit [facility]inology [facility] [address] [place] [address] Annel Rod MD #2 [facility] [address] [place] [id number] documented as of this encounter Visit Diagnoses Not on filedocumented in this encounter Additional Health Concerns Assessment Noted Time PHQ-9 Depression Total Score: 0 09/08/19 19 1:00 PM CDT documented as of this encounter Care Teams Pocket Setter Lockstitch Relationship Specialty Start Date End Date Justen Gale MD #2 [facility] [address] [place] [address] PCP - General Family Medicine 10/17/17 documented as of this encounter
--- OUTSIDE RECORDS SUMMARY | 2024-04-26 03:02 | XMS_ITS | Encounter Summary ---
Author Organization [facility] Address [address] [place] [address] Phone Care Team Providers Care Federal District Clerk Name Role Phone Justen Gale MD Primary Care Provider [phone] Reason for Visit * Reason Comments Medication Refill Encounter Details Date Type Department Care Team (Late st Contact Info) Description 08/07/2019 Refill [facility] [address] [place], [place] [id number] Justen Gale MD #[address] [address] Medication Refill Social History Tobacco Use Types [...] Telephone Encounter - Justen Gale MD - 08/07/2019 11:49 AM CDT Prescription approved. Please call in * Telephone Encounter - Felicitas Krishna RN - 08/07/2019 11:29 AM CDT Requested Prescriptions Pending Prescriptions Disp Refills ondansetron (ZOFRAN) 4 MG Tablet [Pharmacy Med Name: ONDANSETRON 4MG TABLETS] 15 Tab 9 Sig: TAKE 1 TABLET BY MOUTH EVERY 8 HOURS NEEDED FOR NAUSEA Gastroenterology: Antiemetics Passed - 08/07/2019 11:29 AM Passed - Valid encounter within last 12 months Past Office Visits Recent Outpatient Visits 3 months ago Preop examination [facility] Justen Mcwilliams MD 5 months ago Acute left ankle pain [facility] Justen Mcwilliams MD 9 months ago Pneumonia of left lower lobe due to infectious organism (HCC) [facility] Justen Mcwilliams MD 11 months ago Nausea [facility]INE Pili Elkins APN, HOSPITAL ADMINISTRATOR 1 year ago Type 2 diabetes mellitus with complication, without long-term current use of insulin (HCC) [facility] Jsuten Mcwilliams MD Upcoming Appointments Future Appointments In 6 days Annel Rod MD [facility], [facility] documented in this encounter Plan of Treatment Upcoming Encounters Date Type Department Care Team (Late st Contact Info) Description 05/17/2024 2:45 PM DAY TRADER Office Visit [facility] - Endocrinology - [place] [address] [place] [address] Annel Rod MD [address] [address] documented as of this encounter Visit Diagnoses Not on filedocumented in this encounter Additional Health Concerns Assessment Noted Time PHQ-9 Depression Total Score: 0 09/08/19 19 1:00 PM CDT documented as of this encounter Care Teams [employer] District Clerk Relationship Specialty Start Date End Date Justen Gale MD #[address] [address] PCP - General Family Medicine 10/17/17 documented as of this encounter
--- OUTSIDE RECORDS SUMMARY | 2024-04-26 03:02 | XMS_ITS | Encounter Summary ---
Author Organization [facility] Address [address] [place] [address] Phone Care Team Providers Care Certified Industrial Hygienist Name Role Phone Justen Gale MD Primary Care Provider [phone] Reason for Referral * Consult, Test & Initiate Treatment (Routine) - Closed Specialty Diagnoses / Procedures Referred By Contac t Referred To Contact Diagnoses Pain Justen Gale MD #[address] [address] Phone: tel: fax: Taylor Smith MD Phone: tel: fax: Referral ID Status Reason Start Date Expiration Date Visits Re quested Visits Authorized [id number] Closed 08/27/2019 1 12 Scheduling Instructions Karly is being referred to Dr Taylor Smith/Interventional Pain Management or other specialist in patient's insurance network For authorized visits for pain management . See below for Karly's current medications, [...] Disp: 90 Tab, Rfl: 3 Misc. Devices Mis, Supply and instructions:, Disp: [...] Visit * Reason Onset Date Comments Referral 08/27/2019 pain management Encounter Details Date Type Department Care Team (Late st Contact Info) Description 08/27/2019 Telephone [facility] - [facility] [address] [place] [address] Justen Gale MD [address] [address] Referral (pain management) Social History Tobacco Use Types Packs/Day Years [...] Telephone Encounter - Elma Sykes RN - 08/27/2019 2:29 PM CDT Received a request from Interventional Pain management. Order pended to PCP documented in this encounter Plan of Treatment Upcoming Encounters Date Type Department Care Team (Late st Contact Info) Description 05/17/2024 2:45 PM COSMETICS PRESSER Office Visit [facility] - Endocrinology [facility] [address]2 [place] [address] Annel Rod MD #[address] [address] Scheduled Referrals Name Type Priority Associated Diagnoses Orde r Schedule EXTERNAL PAIN REFERRAL Outpatient Referral Routine Pain Expected: 03/23/2020, Expires: 08/26/2020 documented as of this encounter Visit Diagnoses Diagnosis Pain- Primary Generalized pain documented in this encounter Additional Health Concerns Assessment Noted Time PHQ-9 Depression Total Score: 0 09/08/19 19 1:00 PM CDT documented as of this encounter Care Teams Certified Industrial Hygienist Relationship Specialty Start Date End Date Justen Gale MD #2 [facility] [address] [place] [address] PCP - General Family Medicine 10/17/17 documented as of this encounter
--- OUTSIDE RECORDS SUMMARY | 2024-04-26 03:02 | XMS_ITS | Encounter Summary ---
Author Organization [facility] Address [address] [place] [address] Phone Care Team Providers Care Imitation Marble Mechanic Name Role Phone Justen Gale MD Primary Care Provider [phone] Reason for Visit * Reason Comments Medication Refill Encounter Details Date Type Department Care Team (Late st Contact Info) Description 07/23/2019 Refill [facility] - Endocrinology - [place] [address]2 [place] [address] Annel Rod MD #[address] [address] Medication Refill Social History Tobacco [...] Telephone Encounter - Annel Rod MD - 07/23/2019 1:04 PM CDT Rx sent * Telephone Encounter - Jennifer Wang RN - 07/23/2019 11:14 AM CDT Refill request received. Order pended. Requested Prescriptions Pending Prescriptions Disp Refills ??? Insulin Lispro, 1 Unit Dial, (HUMALOG KWIKPEN) 100 UNIT/ML Solution Pen- injector [Pharmacy Med Name: HUMALOG 100 U/ML KWIK PEN INJ 3ML] 30 mL Sig: INJECT 24 UNITS UNDER THE SKIN AT BREAKFAST, 24 UNITS AT LUNCH, AND 26 UNITS AT DINNER, UP TO 100 UNITS PER DAY DIRECTED Next appt: Left message to schedule tele-visit. documented in this encounter Plan of Treatment Upcoming Encounters Date Type Department Care Team (Late st Contact Info) Description 05/17/2024 2:45 PM HYDRODYNAMICIST Office Visit [facility] - Endocrinology [facility] [address] [place] [address] Annel Rod MD #[address] [address] documented as of this encounter Visit Diagnoses Not on filedocumented in this encounter Additional Health Concerns Assessment Noted Time PHQ-9 Depression Total Score: 0 09/08/19 19 1:00 PM CDT documented as of this encounter Care Teams Imitation Marble Mechanic Relationship Specialty Start Date End Date Justen Gale MD #2 [facility] [address] [place] [address] PCP - General Family Medicine 10/17/17 documented as of this encounter
--- OUTSIDE RECORDS SUMMARY | 2024-04-26 03:02 | XMS_ITS | Encounter Summary ---
Author Organization [facility] Address [address] [place] [address] Phone Care Team Providers Care Computer Engineering Technician Name Role Phone Justen Gale MD Primary Care Provider Encounter Details Date Type Department Care Team (Late st Contact Info) Description 07/25/2019 Telephone [facility] - [facility] #2 [place] [address] Justen Gale MD #[address] [address] Social History Tobacco Use Types Packs/Day Years [...] Telephone Encounter - Dannielle Duong RMA - 07/25/2019 3:32 PM CDT Spoke to patient and scheduled. * Telephone Encounter - Justen Gale MD - 07/25/2019 3:08 PM CDT Please call. Needs lab appointment in next 1-2 days documented in this encounter Plan of Treatment Upcoming Encounters Date Type Department Care Team (Late st Contact Info) Description 05/17/2024 2:45 PM ADMINISTRATION INTERN Office Visit [facility] - Endocrinology [facility] #2 [place] [address] Annel Rod MD #2 [facility] [address] [place] [address] documented as of this encounter Visit Diagnoses Not on filedocumented in this encounter Additional Health Concerns Assessment Noted Time PHQ-9 Depression Total Score: 0 09/08/19 19 1:00 PM CDT documented as of this encounter Care Teams Computer Engineering Technician Relationship Specialty Start Date End Date Justen Gale MD #2 [facility] [address] [place] [address] PCP - General Family Medicine 10/17/17 documented as of this encounter
--- OUTSIDE RECORDS SUMMARY | 2024-04-26 04:17 | XMS_ITS | CONTINUITY OF CARE DOCUMENT ---
Author Name ayesha, ayesha Address Unknown Organization [facility] Address [address] [place] [address] Phone [phone] Care Team Providers Care Master Control Engineer Name Role Phone Yamilet DURÁN, Maico Unavailable [phone] ALANIS DURÁN, BRIDGETT Unavailable [phone] ALLISON DURÁN, CLARISSE Unavailable [phone] PROBLEMS Condition Status Date Provider Notes Shortness of breath active Ivory Rodriguez Palpitations active Radha Seals INSURANCE PROVIDERS Payer name Policy type / Coverage type [place] red libertarian ID UHC MEDICARE COMPLETE HMO Other [id number] [facility] Medicaid 2 [id number] HISTORY OF PROCEDURES Procedure Date Procedure Name Provider Procedure Notes S tatus Stress EKG Carmine Silverio MD complet ed Regadenoson, 4 units Sergey Saldana MD completed Cardiolite, 2 units Sergey Saldana MD completed SPECT Images Carmine Silverio MD compl eted Holter, 24 or 48 Maico Woodard MD co mpleted
--- OUTSIDE RECORDS SUMMARY | 2024-04-26 04:17 | XMS_ITS | Encounter Summary ---
Author Organization [facility] Healthcare Address [address] [place] [address] Care Team Providers Care Information Assurance Manager Name Role Phone Liu Jerez MD Unavailable Albert Corbin MD Unavailable [phone] Justen Gale MD Primary Care Provider Khris Arthur MD Unavailable [phone] Ko Melendez MD Unavailable John Paul Moyer MD Unavailable Annel Rod MD Unavailable Anali MARSHALL MD, Carlos M. Unavailable [phone] Encounter Details Date Type Department Care Team (Late st Contact Info) Description 11/21/2023 3:00 PM CDT Lab [facility] [address] [facility] Medicine 7th [place] [id number] Malignant neoplasm of upper-inner quadrant of left breast in female, estrogen receptor positive (HCC) Social History Tobacco Use Types Packs/Day Years Used Date Smoking Tobacco: Former Smokeless Tobacco: Never Comments:remote tobacco use Alcohol Use Standard Drinks/Week Comments No 0 (1 standard drink = 0.6 oz pur e alcohol) [facility] Utilities Answer Date Recorded In the past 12 months has th e electric, gas, oil, or water company threatened to shut off services in your home? Patient unable to answer 08/15/2023 Social Connection and Isolation Panel [NHANES] A nswer Date Recorded In a typical week, how many times do you talk on the phone with family, friends, or neighbors? Patient unable to answer 08/15/2023 How often do you get togethe r with friends or relatives? Patient unable to answer 08/15/2023 How often do you attend [facility] or restorationism services? Patient unable to answer 08/15/2023 Do you belong to any clubs o r organizations such as anabaptist groups, unions, fraternal or athletic groups, or school groups? Patient unable to answer 08/15/2023 How often do you attend meet ings of the clubs or organizations you belong to? Patient unable to answer 08/15/2023 Are you , , di vorced, , never , or living with a partner? Patient unable to answer 08/15/2023 AUDIT-C Answer Date Recorded Q1: How often do you have a drink containing alcohol? Never 09/12/2021 Q2: How many drinks containi ng alcohol do you have on a typical day when you are drinking? Patient does not drink Q3: How often do you have si x or more drinks on one occasion? Never 09/12/2021 Overall Financial Resource Strain (CARDIA) Answe r Date Recorded How hard is it for you to pa y for the very basics like food, housing, medical care, and heating? Patient unable to answer 08/15/2023 PHQ-2 Answer Date Recorded PHQ-2 Score 1 12/15/2018 Hunger Vital Sign Answer Date Recorded Within the past 12 months, y ou worried that your food would run out before you got the money to buy more. Patient unable to answer 08/15/2023 Within the past 12 months, t he food you bought just didn't last and you didn't have money to get more. Patient unable to answer 08/15/2023 PRAPARE - Transportation Answer Date Re corded In the past 12 months, has l ack of transportation kept you from medical appointments or from getting medications? Patient unable to answer 08/15/2023 In the past 12 months, has l ack of transportation kept you from meetings, work, or from getting things needed for daily living? Patient unable to answer 08/15/2023 Housing Stability Vital Sign Answer [place] e Recorded In the last 12 months, was t here a time when you were not able to pay the mortgage or rent on time? No 08/15/2023 In the last 12 months, how many places have you lived? 1 08/15/2023 In the last 12 months, was t here a time when you did not have a steady place to sleep or slept in a custodial (including now)? No 08/15/2023 Personal Safety Answer Date Recorded Have you ever been in or are you currently in a harmful physical or emotional relationship or is someone making you feel afraid or unsafe? Denies 10/31/2023 Comments No Sex and Gender Information Value Date Recorded Sex Assigned at Not on file Legal Sex Female 12:24 AM TELEVISION INSTALLER HELPER Gender Identity Not on file Sexual Orientation Not on file documented as of this encounter Plan of Treatment Not on file documented as of this encounter Procedures Procedure Name Priority Date/Time Associated Diagnosis Comments EGFR Routine 11/21/2023 2:34 PM CDT Malignant neoplasm of upper-inner quadrant of left breast in female, estrogen receptor positive (HCC) BASIC METABOLIC PANEL Routine 11/21/2023 2:34 PM CDT Malignant neoplasm of upper-inner quadrant of left breast in female, estrogen receptor positive (HCC) documented in this encounter Results * eGFR (11/21/2023 2:34 PM CDT) eGFR >90 >=60 mL/min/1. 73 m2 Comment: Interpretive Data Reference Interval Normal ?>/= 90 mL/min/1.73m2 Mildly decreased* ? 60 - 89 mL/min/1.73m2 Mildly to moderately decreased ?45 - 59 mL/min/1.73m2 Moderately to severely decreased ??30 - 44 mL/min/1.73m2 Severely decreased ?15 - 29 mL/min/1.73m2 Kidney Failure ?< 15 ??mL/min/1.73m2 *Relative to young adult level Estimated glomerular filtration rate is determined by the 2020 CKD-EPI equation recommended by the National Kidney Foundation (A Unifying Approach to GFR Estimation: Recommendations of the NKF-ASK Task Force on Reassessing the Inclusion of Race in Diagnosing Kidney Disease, JASN 2020). The CKD-EPI equation should not be used for patients with unstable renal function and has not been validated in children and those over 70. Current interpretive data was last reviewed 2021. Testing performed by: [facility], [address] [place] [phone] Blood 11/21/2023 2:34 PM CDT 11/21/2023 2:39 PM CDT Khris Arthur MD LAB BLOOD ORDERABLES Final Result [facility] Department of Laboratories [place], [place] [id number] * (ABNORMAL) Basic metabolic panel (11/21/2023 2:34 PM CDT) Sodium 138 135 - 145 mmol/L Comment:Testing performed by : [facility], [address] [place] [phone] Potassium, pl 4.1 3.3 - 4.9 mmol/L [facility] Comment:Testing performed by : [facility], [address] [place] [phone] Chloride 103 97 - 110 mmol/L [facility] Comment:Testing performed by : [facility], [address] [place] [phone] CO2 29 22 - 32 mmol/L [facility] Comment:Testing performed by : [facility], [address] [place] [phone] Anion gap 6 2 - 15 mmol/L [facility] Comment:Testing performed by : [facility], [address] [place] [phone] BUN 15 6 - 25 mg/dL [facility] Comment:Testing performed by : [facility], [address] [place] [phone] Creatinine 0.63 0.60 - 1.10 mg/dL [facility] Comment:Testing performed by : [facility], [address] [place] [phone] Glucose 202(H) 70 - 199 mg/dL [facility] Comment: Interpretive Data Fasting glucose >/= 126 mg/dl is diagnostic for diabetes. ?? Fasting is defined as no caloric intake for at least 8 hours. Fasting glucose between 100 mg/dl to 125 mg/dl is diagnostic of prediabetes. In a patient with classic symptoms of hyperglycemia or hyperglycemic crisis, a random glucose >/= 200 mg/dl is diagnostic for diabetes. In the absence of unequivocal hyperglycemia, results should be confirmed by repeat testing. The classification and Diagnosis of Diabetes Diabetes Care 202; 46: S19-S40. Current interpretive data was last revised 2022. Testing performed by: [facility], [address] [place] [phone] Calcium 9.6 8.5 - 10.3 mg/dL [facility] Comment:Testing performed by : [facility], [address] [place] [phone] Blood 11/21/2023 2:34 PM CDT 11/21/2023 2:39 PM CDT Khris Arthur MD LAB BLOOD ORDERABLES Final Result [facility] Department [place] [address] documented in this encounter Visit Diagnoses Diagnosis Malignant neoplasm of upper-inner quadrant of left breast in female, estrogen receptor positive (HCC) documented in this encounter Care Teams Information Assurance Manager Relationship Specialty Start Date End Date Justen Gale MD 2 [facility] [address] [place] [address] PCP - General 10/09/17 Liu Jerez MD Consulting Physician Gastroenterology 07/28/17 [place] [address] [facility] [address] [place] [address] Consulting Physician Pulmonary Disease 08/03/17 Khris Arthur MD [address] [facility] [address] [place] [address] Medical Oncologist/Inter Fold Roll Cutter Medical Oncology 10/23/17 [place] [address] [facility] [address] [place] [address] Surgeon Orthopedic Surgery 10/23/17 [place] [address] [facility] [address] [place] [address] Consulting Physician Pain Management 10/23/17 [place] [address] [facility] [address] [place] [address] Referring Physician General Surgery 01/26/18 [place] [address] [facility] [address] [place] [address] Consulting Physician Neurology 01/26/18 documented as of this encounter
--- OUTSIDE RECORDS SUMMARY | 2024-04-26 04:17 | XMS_ITS | Encounter Summary ---
Author Organization [facility] Healthcare Address [address] [place] [address] Care Team Providers Care First Line Production Supervisor Name Role Phone Liu Jerez MD Unavailable [phone] Albert Corbin MD Unavailable Justen Gale MD Primary Care Provider Khris Arthur MD Unavailable Ko Melendez MD Unavailable [phone] John Paul Moyer MD Unavailable Annel Rod MD Unavailable Anali MARSHALL MD, Carlos M. Unavailable Reason for Visit * Episode Based Medications (Routine) - Authorized Specialty Diagnoses / Procedures Referred By Contkristina t Referred To Contact Oncology Diagnoses Malignant neoplasm of upper-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, unspecified estrogen receptor status (HCC) assisted (current) use 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 inhibitors Bone disorder Khris Arthur MD [address] [facility] [address] [place] [address] Phone: tel: fax: [facility] [address] [place] [address] [facility] 7th [place] [address] Phone: tel: Referral ID Status Reason Start Date Expiration Date V isits Requested Visits Authorized [id number] Authorized 08/02/2022 07/31/2024 1 60 Encounter Details Date Type Department Care Team (Late st Contact Info) Description 11/21/2023 3:30 PM CDT Infusion [facility] and [address] 7th [place] [phone] Malignant neoplasm of upper-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, unspecified estrogen receptor status (HCC) (Primary Dx); Malignant neoplasm of upper-inner quadrant of left breast in female, estrogen receptor positive (HCC); assisted (current) use 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 inhibitors; Bone disorder Social History Tobacco Use Types Packs/Day Years Used Date Smoking Tobacco: Former Smokeless Tobacco: Never Comments:remote tobacco use Alcohol Use Standard Drinks/Week Comments No 0 (1 standard drink = 0.6 oz pur e alcohol) [facility] Utilities Answer Date Recorded In the past 12 months has [employer], gas, oil, or water [employer] threatened to shut off services in your [...] answer 08/15/2023 How often do you attend chur ch or congregation services? Patient unable to answer 08/15/2023 Do you belong to any clubs o r organizations such as jewish groups, unions, fraternal or athletic groups, or [...] in a long term (including now)? No 08/15/2023 Personal Safety Answer Date Recorded Have you ever been in or are you currently in a harmful physical or emotional relationship or is someone making you feel afraid or unsafe? 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 female who presents for treatment 2 of Zoledronic Acid. Pre-treatment Nursing Assessment Nursing Assessment LOC: Awake, Alert Constitutional: Fatigue Fatigue: Occassional Any falls since your last visit?: No Orientation: Oriented x4 Behavior: Calm Speech: Clear Language: No aphasia Vision: At baseline Peripheral Neuropathy: No Oral Mucosa Grade: Normal (0) Pt states has potential to be ?: No Shortness of Breath?: Yes Lungs auscultated PRN: No Pt is on oxygen?: No Respiratory Effort Characteristics: Dyspnea exertion Have You Recently Lost Weight Without Trying?: No Have you been eating poorly because of a decreased appetite?: No Malnutrition Screening Tool (MST) Score: 0 Nausea/Vomiting: No Abdomen: Soft Diarrhea: No Constipation: No Last BM Date: 11/21/23 Skin Condition/Temp: Warm, Dry Swelling: Yes (team aware; unchanged) Enc Vitals BP: 146/80 (11/21/2023 2:43 PM) Pulse: 79 (11/21/2023 2:43 PM) Resp: 18 (11/21/2023 2:43 PM) Temp: 36.4 ??C (97.6 ??F) (11/21/2023 2:43 PM) Temp src: Transdermal (11/21/2023 2:43 PM) SpO2: 96 % (11/21/2023 2:43 PM) Weight: 121 kg (266 lb 12.8 oz) (11/21/2023 2:43 PM) Pain Loc: BACK (11/21/2023 5:00 PM) Pain Score: 5 - Moderate pain Treatment Patient: met treatment parameters Pre blood return: Keely Marques tolerated treatment well. Patient was frequently observed and monitored throughout the administration of their treatment. Additional Notes: No s/s of adverse reaction noted. Post blood return: Brisk IV access post infusion: NS and Other: PIV removed Patient Education Treatment Education: Information/teaching given to patient including fall prevention, process and procedure related to today's visit, and when to notify MD Response: Verbalizes understanding Discharge Plan Discharge instructions given to patient. Future appointments given and reviewed with treatment plan. 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 Bone disorder Disorder of bone and cartilage, unspecified documented in this encounter Administered Medications Inactive Administered Medications - up to 3 most recent administrations Medication Order MAR Action Action Date Dose Rate Site zoledronic ngmq-guurzksQ-jfepl (RECLAST) 5 mg/100 mL premix 5 mg 5 mg, intravenous, at 300 mL/hr, Administer over 20 Minutes, Once, On Mon11/21/23 at 1730, For 1 doseIndications:Malignant neoplasm of upper-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, unspecified estrogen receptor status (HCC),assisted (current) use 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 inhibitors,Bone disorder New Bag 11/21/2023 5:43 PM CDT 5 mg 300 mL /hr documented in this encounter Orders Medications Ordered That Tyler ht Not Have Been Administered Count Last Ordered Date First Ordered Date zoledronic fgec-pahdqfuA-jtk er (RECLAST) 5 mg/100 mL premix 5 mg 1 11/21/2023 Nursing Count Last Ordered Date First Orde red Date ONCBCN PROVIDER COMMUNICATION INPT LABS 1 0 11/21/2023 Appointment Requests Count Last Ordered Date Fi rst Ordered Date INFUSION APPT REQUEST 60 MIN 1 11/21/2023 documented in this encounter Care Teams First Line Production Supervisor Relationship Specialty Start Date End Date Justen Gale MD [address] [place] [address] PCP - General 10/09/17 Liu Jerez MD Consulting Physician Gastroenterology 07/28/17 [place] [address] [facility] [address] [place] [address] Consulting Physician Pulmonary Disease 08/03/17 Khris Arthur MD [address] [facility] [address] [place] [address] Medical Oncologist/Wound Care Center Consultant Medical Oncology 10/23/17 [place] [address] [address] [place] [address] Surgeon Orthopedic Surgery 10/23/17 [place] [address] [address] [place] [address] Consulting Physician Pain Management 10/23/17 [place] [address] [address] [facility] [address] [place] [address] Referring Physician General Surgery 01/26/18 [place] [address] [address] [address] [place] [address] Consulting Physician Neurology 01/26/18 documented as of this encounter
--- OUTSIDE RECORDS SUMMARY | 2024-04-26 04:17 | XMS_ITS | Referral Summary ---
Author Organization [facility] Address [address] [place] [address] Care Team Providers Care Speech Language Pathologist Travel Name Role Phone Liu Jerez MD Unavailable [phone] Albert Corbin MD Unavailable Justen Gale MD Primary Care Provider Khris Arthur MD Unavailable [phone] Ko Melendez MD Unavailable John Paul Moyer MD Unavailable Annel Rod MD Unavailable Anali MARSHALL MD, Carlos M. Unavailable Encounters Date Type Department Care Team Description 04/22/2024 Telephone [facility] [address] [facility] Floor 8 [place] [address] Radha Mcgrath RN 04/19/2024 Telephone [facility] [address] [place] [address] Lalita Braun, NURIS Scheduling Appointments 02/15/2024 2:22 AM CDT - 02/15/2024 5:58 AM CDT Emergency [facility] Emergency Department [address] [place] [address] [id number] Jeremías Smith MD Myalgia (Primary Dx) Discharge Disposition: Discharge to home or self care from Last 3 Months Allergies Active Allergy Reactions Criticality Noted Date Comments Adhesive Rash Medium 09/16/2021 Amlodipine Besylate Swelling Medium 07/05/2022 Leg swelling Sulfamethoxazole-Trimeth oprim Itching Low 02/27/2022 Ceftriaxone Anaphylaxis High R Ceftriaxone Sodium Shortness of breath High 12/06/19 12 Cephalosporins Anaphylaxis High Ciprofloxacin Rash Medium 02/12/2022 Ketorolac Itching Low Latex Rash Medium Levofloxacin Hives,Unknown Medium 04/20/2017 Lisinopril Swelling Medium 04/19/2021 Lorazepam Unknown High 03/18/2018 Aggrevates restless leg syndrome Nitrofurantoin Flushing (skin) Low 02/16/2022 Meropenem Rash Medium 02/16/2022 Metoclopramide Other (See comments) Low 03/22/2017 Other reaction(s): Hyperactive Restless leg syndrome Metoclopramide Hcl Unknown 09/14/2017 Other Rash Medium 09/16/2021 Oxycodone Vomiting Low 07/28/2017 Piperacillin-Tazobactam Rash Medium 07/05/2021 Pregabalin Other (See comments) Low 10/29/2020 Reslizumab Unknown 10/29/2020 Trazodone Other (See comments) Low 11/03/2017 Shaky, restlessness, itching, throat swelling Medications rOPINIRole (REQUIP) 5 mg tablet Take 1 tablet (5 mg total) by mouth nightly Taken at 2100 Active blood glucose diagnostic (Emotientuch Ultra Test) strip 4 (four) times a day 1 Active albuterol HFA (PROVENTIL HFA,VENTOLIN HFA,PROAIR HFA) 90 mcg/actuation inhaler Inhale 2 puffs every 6 (six) hours as needed for wheezing or shortness of breath 1 Active naloxone (NARCAN) 4 mg/actuation spray,non-aerosol 2 Active BD Ultra-Fine Short Pen Needle 31 gauge x 5/16 needle USE 6 TIMES DAILY DIRECTED 2 Active oxyBUTYnin XL (DITROPAN XL) 15 mg 24 hr tablet Take 1 tablet (15 mg total) by mouth daily 3 Active exemestane (AROMASIN) 25 mg tabletIndications: Malignant neoplasm of upper-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, unspecified estrogen receptor status (HCC),Malignant neoplasm of overlapping sites of left female breast, unspecified estrogen receptor status (HCC),Malignant neoplasm of female breast, unspecified estrogen receptor status, unspecified laterality, unspecified site of breast (HCC) Take 1 tablet (25 mg total) by mouth nightly 90 tablet 3 3 Active insulin glargine 100 unit/mL vial for injection Inject 32 Units under the skin daily Takes in the morning 4 Active gabapentin (NEURONTIN) 300 mg capsule Take 1 capsule (300 mg total) by mouth 3 (three) times a day 4 Active dicyclomine (BENTYL) 10 mg capsule Take 1 capsule (10 mg total) by mouth 4 (four) times a day as needed (abd cramps) 60 capsule 4 Active ondansetron ODT (ZOFRAN-ODT) 4 mg disintegrating tablet Take 1 tablet (4 mg total) by mouth every 4 (four) hours as needed for nausea or vomiting 20 tablet 4 Active methenamine (HIPREX) 1 gram tablet Take 1 tablet (1,000 mg total) by mouth 2 (two) times a day 4 Active ondansetron (ZOFRAN) 4 mg tablet Take 1 tablet (4 mg total) by mouth every 8 (eight) hours as needed for nausea or vomiting 4 Active rivaroxaban (Xarelto) 20 mg tabletIndications: Chronic anticoagulation,Hi story of pulmonary embolism,History of DVT (deep vein thrombosis),Other pulmonary embolism without acute cor pulmonale, unspecified chronicity (HCC),Malignant neoplasm of female breast, unspecified estrogen receptor status, unspecified laterality, unspecified site of breast (HCC),Malignant neoplasm of overlapping sites of left female breast, unspecified estrogen receptor status (HCC),Malignant neoplasm of upper-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, unspecified estrogen receptor status (HCC) Take 1 tablet (20 mg total) by mouth daily 30 tablet 11 4 Active HYDROcodone-acetam inophen (NORCO) 10-325 mg per tablet Take 1 tablet by mouth every 6 (six) hours as needed for pain 4 Active insulin lispro (HumaLOG, ADMELOG) 100 unit/mL vial for injection Inject 28 Units under the skin 3 (three) times a day before meals 28 units plus sliding scale before meals Active Active Problems Problem Noted Date Diagnosed Date Breast cancer 08/17/2023 Abdominal pain 08/14/2023 Bone disorder 08/02/2022 Cystitis 02/09/2022 Lab test positive for detection of COVID-19 viru s 02/09/2022 Chest pain 09/12/2021 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) 2021 alf (current) use 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 inhibitors 10/17/2019 Thyroid nodule 08/07/2018 Assessment & Plan (08/07/2018 5:44 PM CDT): Patient recently found to have nodules on [...] nodule and 2.1 cm left inferior nodule. CVA (cerebral vascular accident) 01/24/2018 Anxiety and depression 11/12/2017 Uncontrolled type 2 diabetes mellitus with hyperglycemia, with long-term current use of insulin 11/06/2017 Allergy to drug 11/06/2017 Overview (11/06/2017): Trazodone Dysuria 10/26/2017 Acute left-sided low back pain with left-sided s ciatica 10/23/2017 Assessment & Plan (10/23/2017 2:04 AM CDT): Likely disc herniation. NSGY to see patient tomorrow. Ordered MRI per NSGY recs. continue with home norco. Type 2 diabetes mellitus wit h neurologic complication, without long-term current use of insulin ([facility]) 10/23/2017 Assessment & Plan (10/23/2017 2:06 AM CDT): Hold janument. 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 10/17/2017 Cancer Staging:Clinical: Unsigned Cancer of overlapping sites of left female breas t 10/13/2017 Chest pressure 08/01/2017 Positive blood culture 08/01/2017 Hyponatremia 08/01/2017 Diet-controlled diabetes mellitus ([facility]) 07/23 LUL (obstructive sleep apnea) 08/01/2017 History of DVT (deep vein thrombosis) 08/01/2017 History of pulmonary embolism 08/01/2017 Generalized weakness 07/27/2017 Dyspnea 07/27/2017 Unintentional weight loss 07/27/2017 Acute cystitis without hematuria 07/27/2017 Nausea and vomiting 07/26/2017 Overview (07/28/2017): Added automatically from request for surgery [id number] Pulmonary embolism 08/09/2016 Assessment & Plan (10/23/2017 2:05 AM CDT): On Rivaroxaban Lymphedema of left upper extremity 08/09/2016 Pain of foot 01/26/2015 Arthralgia of ankle 01/26/2015 Rash 11/11/2014 Cellulitis of breast 11/11/2014 Restless legs syndrome 03/12/2013 Overview (07/28/2016): Restless leg syndrome Pain of lower extremity 03/12/2013 Overview (07/29/2016): Leg pain Essential hypertension Chronic anticoagulation Restless leg syndrome 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 Type 2 diabetes mellitus without complication (C MS/HCC) Constipation Dyslipidemia History of breast cancer Intractable pain Immunizations Name Administration Dates Next Due Influenza, Quadrivalent, Spl it, Intramuscular 02/06/2017,02/11/2015 Influenza, Quadrivalent, Spl it, Preservative Free, Intramuscular 01/03/2022,05/04/2021,01/18/2020,02/25,01/24/2018,02/14/2017 Influenza, Trivalent, IM (MDV) 0,01/23/2016,03/07/2014,05/07 Influenza, Unspecified 01/23/2016,03/07/2014, Tdap 02/23/2016 Social History Tobacco Use Types Packs/Day Years Used Date Smoking Tobacco: Former Smokeless Tobacco: Never Tobacco Cessation:Counseling Given: Not Answered Comments:remote tobacco use Alcohol Use Standard Drinks/Week Comments No 0 (1 standard drink = 0.6 oz pur e alcohol) [facility] [employer] Answer Date Recorded In the past 12 months has [employer], gas, oil, or water [employer] threatened to shut off services in your [...] answer 08/15/2023 How often do you attend [facility] or mandae[facility] services? Patient unable to answer 08/15/2023 Do you belong to any clubs o r organizations such as voodoo groups, unions, fraternal or athletic groups, or [...] slept in a mcc (including now)? No 08/15/2023 Personal Safety Answer Date Recorded Have you ever been in or are you currently in a harmful physical or emotional relationship or is someone making you feel afraid or unsafe? Denies 02/14/2024 Comments No Sex and Gender Information Value Date Recorded Sex Assigned at Not on file Legal Sex Female 12:24 AM [employer] Gender Identity Not on file Sexual Orientation Not on file Last Filed Vital Signs Vital Sign Reading Time Taken Comments Blood Pressure 126/78 02/15/2024 5:57 AM CDT Pulse 78 02/15/2024 5:57 AM CDT Temperature 37.3 ??C (99.1 ??F) 02/14/2024 11:19 PM C DT Respiratory Rate 18 02/15/2024 5:57 AM CDT Oxygen Saturation 95% 02/15/2024 5:57 AM CDT Inhaled Oxygen Concentration - - Weight 120.6 kg (265 lb 14 oz) 02/15/2024 2:27 A M CDT Height 154.9 cm (5' 1 ) 12/28/2023 12:43 PM CDT Body Mass Index 50.24 12/28/2023 12:43 PM CDT Plan of Treatment Not on file Procedures Procedure Name Priority Date/Time Associated Diagnosis Comments URINALYSIS, MICROSCOPIC ONLY STAT 02/15/2024 1:19 AM CDT URINALYSIS AND REFLEX TO MICROSCOPIC AND CULTURE STAT 02/15/2024 1:19 AM CDT CREATINE KINASE (CK), TOTAL Add-On 02/15/2024 1:09 AM CDT EGFR STAT 02/15/2024 1:09 AM CDT COMPREHENSIVE METABOLIC PANEL STAT 02/15/2024 1:09 AM CDT DIFFERENTIAL AUTO STAT 02/14/2024 11: 43 PM CDT APTT STAT 02/14/2024 11:43 PM CDT PROTIME-INR STAT 02/14/2024 11:43 PM CDT CBC WITH AUTO DIFFERENTIAL STAT 02/14/2024 11:43 PM CDT INFLUENZA A/B, RSV, AND COVID-19 PCR STAT 02/14/2024 11:43 PM CDT HEMOGLOBIN A1C Routine 08/14/2023 8:47 PM CDT LIPID PANEL Routine 08/14/2023 8:47 PM CDT DEXA AXIAL SKELETON BONE DENSITY 1 OR MORE SITES Schedule Routine, Read Routine (OP Routine) 08/02/2022 10:53 AM CDT Malignant neoplasm of upper-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, unspecified estrogen receptor status (HCC) COLONOSCOPY REPORT 07/03/2017 SCREENING MAMMOGRAM Routine 08/19/2016 7 :27 PM CDT from Last 3 Months or Most Recently Relevant to Health Maintenance Results * (ABNORMAL) Urinalysis reflex to microscopic and culture Urine, in and out catheter (02/15/2024 1:19AM CDT) Color, ur Yellow Yellow Comment:Testing performed by : [address] [address] Clarity, ur Clear Clear MARY JANE Comment:Testing performed by : [address], [place]., [address] Specific gravity, ur 1.023 1.003 - 1.030 MARY JANE Comment:Testing performed by : [address] [address] pH, urine 5.5 MARY JANE Comment: Interpretive Data ? Urine pH is affected by diet, medications, systemic acid-base disturbances, and renal tubular function. ??pH may affect urinary stone formation. ??For example, urine pH below 6.0 may help reduce the tendency for calcium phosphate stones and pH greater than 6.0 may reduce the tendency for uric acid stone formation. Source: [facility] [employer] Current Interpretive Data was last revised on 2017 Testing performed by: [address] [address] Protein, ur ql Negative Negative MARY JANE Comment:Testing performed by : [address] [address] Glucose, ur ql Trace(A) Negative MARY JANE Comment:Testing performed by : [address] [address] Ketones, ur Negative Negative MARY JANE Comment:Testing performed by : [address], [place]., [address] Bilirubin, ur Negative Negative MARY JANE Comment:Testing performed by : [address] [address] Blood, ur 1+(A) Negative MARY JANE PHAM Comment:Testing performed by : [address], [place]., [address] Urobilinogen, ur <2.0 <2.0 mg/dL MARY JANE PHAM Comment:Testing performed by : [address], [place]., [address] Nitrite, ur Negative Negative MARY JANE PHAM Comment:Testing performed by : [address], [place]., [address] Leukocyte esterase, ur Negative Negative MARY JANE PHAM Comment:Testing performed by : [address], [place]., [address] UA reflex comment Reflex to microscopic UA will be performed. MARY JANE PHAM Comment:Testing performed by : [address], [place]., [address] Urine, in and out catheter 02/15/2024 1:19 AM CDT 02/15/2024 1:23 AM CDT us Jeremías Smith MD LAB MICROBIOLOGY - GENERAL ORD ERABLES Final Result MARY JANE [facility] [place] [address] * (ABNORMAL) Urinalysis, microscopic only (02/15/2024 1:19 AM CDT) WBC, ur 0-5 0 - 5 /HPF Comment:Testing performed by : [address] [address] RBC, ur 3-5(A) 0 - 2 /HPF MARY JANE PHAM Comment:Testing performed by : [address] [address] Epithelial cells, squamous, ur 1-5 0 - 5 /HPF MARY JANE PHAM Comment:Testing performed by : [address], [place]., [address] Mucous, ur Present(A) MARY JANE PHAM Comment:Testing performed by : [address], [place]., [address] Hyaline casts, ur 1-5 0 - 10 /LPF MARY JANE PHAM Comment:Testing performed by : [facility], [address] [place] [address]., [address] Culture Reflex Comment Reflex conditions for urine culture (WBC >10) not met. MARY JANE PHAM Comment:Testing performed by : [facility], [address] [place] [address]., [address] Urine, in and out catheter 02/15/2024 1:19 AM CDT 02/15/2024 1:23 AM CDT us Jeremías Smith MD LAB URINE ORDERABLES Final Res ult MARY JANE PHAM [address] [facility] [place] [address] * eGFR (02/15/2024 1:09 AM CDT) eGFR >90 >=60 mL/min/1. 73 m2 [...] of Race in Diagnosing Kidney Disease, JASN 202). The CKD-EPI equation should not be used for patients with unstable renal function and has not been validated in children and those over 70. Current interpretive data was last reviewed 2021. Testing performed by: [address] [address] Blood 02/15/2024 1:09 AM CDT 02/15/2024 1:15 AM CDT us Jeremías Smith MD LAB BLOOD ORDERABLES Final Res ult Performing Organization Address City/[facility] Co de Phone Number [address] [place] [place] [address] * Creatine kinase (CK), total (02/15/2024 1:09 AM CDT) CK 137 30 - 200 Units/L Comment:Testing performed by : [address] [address] Blood 02/15/2024 1:09 AM CDT 02/15/2024 4:55 AM CDT Jeremías Smith MD LAB BLOOD ORDERABLES Final Res ult Performing Organization Address [facility] de Phone Number [address] [place] [place] [address] * (ABNORMAL) Comprehensive metabolic panel (02/15/2024 1:09 AM CDT) Sodium 137 135 - 145 mmol/L Comment:Testing performed by : [address] [address] Potassium, pl 4.3 3.3 - 4.9 mmol/L MARY JANE Comment:Testing performed by : [address] [address] Chloride 100 97 - 110 mmol/L MARY JANE Comment:Testing performed by : [address] [address] CO2 29 22 - 32 mmol/L MARY JANE Comment:Testing performed by : [address] [address] Anion gap 8 2 - 15 mmol/L MARY JANE Comment:Testing performed by : [address] [place]., [address] BUN 22 6 - 25 mg/dL MARY JANE Comment:Testing performed by : [address] [address] Creatinine 0.60 0.60 - 1.10 mg/dL MARY JANE Comment:Testing performed by : [address] [address] Glucose 231(H) 70 - 199 mg/dL MARY JANE Comment: Interpretive Data Fasting glucose >/= 126 [...] classification and Diagnosis of Diabetes Diabetes Care 2021; 46: S19-S40. Current interpretive data was last revised 2022. Testing performed by: [address] [address] Calcium 10.3 8.5 - 10.3 mg/dL [facility] Comment:Testing performed by : [address] [address] Bilirubin, total 0.4 0.1 - 1.2 mg/dL [facility] Comment:Testing performed by : [address] [address] Protein, pl 8.2 6.5 - 8.5 g/dL [facility] Comment:Testing performed by : [address] [address] Albumin 3.9 3.5 - 5.0 g/dL [facility] Comment:Testing performed by : [address] [address] Alk phos 74 40 - 130 Units/L MARY JANE Comment:Testing performed by : [address] [address] ALT 18 7 - 45 Units/L MARY JANE Comment:Testing performed by : [address] [address] AST 16 10 - 45 Units/L MARY JANE Comment:Testing performed by : [address] [address] Blood 02/15/2024 1:09 AM CDT 02/15/2024 1:15 AM CDT us Jeremías Smith MD LAB BLOOD ORDERABLES Final Res ult MARY JANE [address] [facility] [place] [address] * Influenza A/B, RSV, and COVID-19 PCR Nasopharyngeal (02/14/2024 11:43 PM CDT) COVID-19 RNA Negative Negative Comment:Testing performed by : [address] [address] Influenza A RNA Negative Negative MARY JANE Comment:Testing performed by : [address] [address] Influenza B RNA Negative Negative MARY JANE Comment:Testing performed by : [address] [address] RSV RNA Negative Negative MARY JANE Comment: Interpretive data: Testing performed by [facility]. This test is performed using the [employer] Xpert Xpress CoV-2/Flu/RSV plus assay. This is a multiplex, real-time reverse transcriptase PCR assay intended for the qualitative detection of nucleic acid from SARS-CoV-2, influenza A, influenza B, and respiratory syncytial virus. This assay has been cleared by the [place] Food and Drug administration. The performance characteristics have been verified by the [facility]. ??Results must be considered in the clinical context, and a negative result does not rule out infection. Interpretive Data last revised 2023 Testing performed by: [address] [address] Nasopharyngeal 02/14/2024 11 :43 PM CDT 02/14/2024 11:49 PM CDT Narrative MARY JANE - 02/15/2024 12:35 AM CDT Is the Patient experiencing symptoms consistent with COVID?->Yes us Jeremías Smith MD LAB MICROBIOLOGY - GENERAL ORD ERABLES Final Result MARY JANE [address] [facility] Department [place] [address] * Differential, auto (02/14/2024 11:43 PM CDT) Neutrophil abs 6.4 1.5 - 6.5 K/cumm Comment:Testing performed by : [address] [address] Imm gran abs 0.1 0.0 - 0.1 K/cumm MARY JANE Comment:Testing performed by : [address] [address] Lymphocyte abs 2.5 0.8 - 3.3 K/cumm MARY JANE Comment:Testing performed by : [address] [address] Monocyte abs 0.7 0.2 - 0.8 K/cumm MARY JANE Comment:Testing performed by : [address] [address] Eosinophil abs 0.3 0.0 - 0.5 K/cumm MARY JANE Comment:Testing performed by : [address] [address] Basophil abs 0.0 0.0 - 0.1 K/cumm MARY JANE Comment:Testing performed by : [address] [address] Neutrophil pct 63.7 % MARY JANE Comment: Interpretive Data Percent cell count reference ranges are not reported, since discordance with absolute values may lead to misinterpretation of CBC data. Current Interpretive Data was last revised on 2017. Testing performed by: [address] [address] Imm gran pct 0.5 % MARY JANE Comment: Interpretive Data Percent cell count reference ranges are not reported, since discordance with absolute values may lead to misinterpretation of CBC data. Current Interpretive Data was last revised on 2017. Testing performed by: [address] [address] Lymphocyte pct 24.7 % [facility] Comment: Interpretive Data Percent cell count reference ranges are not reported, since discordance with absolute values may lead to misinterpretation of CBC data. Current Interpretive Data was last revised on 2017. Testing performed by: [address] [address] Monocyte pct 7.4 % [facility] Comment: Interpretive Data Percent cell count reference ranges are not reported, since discordance with absolute values may lead to misinterpretation of CBC data. Current Interpretive Data was last revised on 2017. Testing performed by: [address] [address] Eosinophil pct 3.3 % [facility] Comment: Interpretive Data Percent cell count reference ranges are not reported, since discordance with absolute values may lead to misinterpretation of CBC data. Current Interpretive Data was last revised on 2017. Testing performed by: [address] [address] Basophil pct 0.4 % [facility] Comment: Interpretive Data Percent cell count reference ranges are not reported, since discordance with absolute values may lead to misinterpretation of CBC data. Current Interpretive Data was last revised on 2017. Testing performed by: [address] [address] Blood 02/14/2024 11:4 3 PM CDT 02/14/2024 11:49 PM CDT us Jeremías Smith MD LAB BLOOD ORDERABLES Final Res ult MARY JANE [address] [facility] [place] [address] * (ABNORMAL) CBC with auto differential (02/14/2024 11:43 PM CDT) WBC 10.0(H) 3.8 - 9.9 K/cumm Comment:Testing performed by : [address] [address] Hgb 13.7 11.9 - 15.5 g/dL MARY JANE Comment:Testing performed by : [address], [address] Hct 42.4 35.6 - 45.5 % MARY JANE Comment:Testing performed by : [address] [address] Plt 273 150 - 400 K/cumm MARY JANE Comment:Testing performed by : [address] [address] MPV 10.3 9.1 - 12.3 fL MARY JANE Comment:Testing performed by : [address], [address] RBC 4.73 3.90 - 5.20 M/cumm MARY JANE Comment:Testing performed by : [address] [address] MCV 89.6 81.3 - 96.4 fL MARY JANE Comment:Testing performed by : [address] [address] MCH 29.0 27.1 - 33.3 pg MARY JANE Comment:Testing performed by : [address] [address] MCHC 32.3 32.3 - 35.7 g/dL MARY JANE Comment:Testing performed by : [address], [address] RDW CV 13.8 11.1 - 14.9 % MARY JANE Comment:Testing performed by : [address] [address] RDW SD 45.0 35.7 - 48.1 fL MARY JANE Comment:Testing performed by : [address] [address] NRBC abs 0.00 0.00 - 0.01 K/cumm MARY JANE Comment:Testing performed by : [address] [address] Blood 02/14/2024 11:4 3 PM CDT 02/14/2024 11:49 PM CDT us Jeremías Smith MD LAB BLOOD ORDERABLES Final Res ult Performing Organization Address [facility] Co de Phone Number MARY JANE [address] [place] [address] * aPTT (02/14/2024 11:43 PM CDT) aPTT 31 22 - 37 sec Comment: Interpretive data aPTT test has not been evaluated for monitoring heparin therapy. The anti-Xa is the preferred test. Current interpretive data was last revised on 2019. Testing performed by: [address] [address] Blood 02/14/2024 11:4 3 PM CDT 02/14/2024 11:49 PM CDT us Jeremías Smith MD LAB BLOOD ORDERABLES Final Res ult Performing Organization Address [facility] Co de Phone Number MARY JANE [address] [facility] [place] [address] * (ABNORMAL) Protime-INR (02/14/2024 11:43 PM CDT) PT 16.9(H) 12.0 - 14.6 sec Comment: Ref Range High Testing performed by: [address] [address] INR 1.4(H) 0.9 - 1.2 MARY JANE Comment: Ref Range High Interpretive data Oral anticoagulant therapeutic ranges: Venous thromboembolism prophylaxis or treatment: 2.0-3.0 CARDIOLOGY Standard range: 2.0-3.0 High-intensity range: 2.5-3.5 Refer to indication-specific guidelines for appropriate target ranges for prosthetic heart valve replacement. Current interpretive data was last revised on 2019. Testing performed by: [address] [address] Blood 02/14/2024 11:4 3 PM CDT 02/14/2024 11:49 PM CDT us Jeremaís Smith MD LAB BLOOD ORDERABLES Final Res ult Performing Organization Address [facility] de Phone Number [facility] [address] [place] [address] * (ABNORMAL) Hemoglobin A1c (08/14/2023 8:47 PM CDT) [facility] Hgb A1C 8.4(H) 4.0 - 5.6 % Comment:Testing performed by : [address] [address] Estimated Average Glucose 194 mg/dL MARY JANE Comment: The ADA recommends reporting an estimated Average Glucose (eAG) with all Hemoglobin A1c results using the equation derived from a study of 507 normal and diabetic adults. ??Minority populations were underrepresented and children were not included. ?? (Diabetes Care 31:2885-0420, 2008). ??The eAG is not equivalent to a fasting glucose. Testing performed by: [address] [address] Blood 08/14/2023 8:47 PM CDT 08/14/2023 8:52 PM CDT Philippe Mcguire MD LAB BLOOD ORDERABLES Final Result Performing Organization Address [facility] de Phone Number [place] [id number] [facility] [place] [address] * Lipid panel (08/14/2023 8:47 PM CDT) [facility] Cholesterol 176 30 - 199 mg/dL Comment: Interpretive Data Ages < or = 19 years ??Acceptable: ? <170 mg/dL ??Borderline high: ??170-199 mg/dL ??High: ? >or= 200 mg/dL Ages > or = 20 years ??Desirable: ?<200 mg/dL ??Borderline high: ??200-239 mg/dL ??High: ? >or= 240 mg/dL Literature References: 1. Expert Panel on Integrated Guidelines for Cardiovascular Health and Risk Reduction in Children and Adolescents. Pediatrics 2011;128:S213 2. NCEP Expert Panel. Circulation 2004;110:227 Current Interpretive Data was last revised on 2017. Testing performed by: [address] [address] Triglycerides 121 <=149 mg/dL MARY JANE Comment: Interpretive Data Ages < or = 9 years ??Acceptable: ? <75 mg/dL ??Borderline high: ??75-99 mg/dL ??High: ? >or= 100 mg/dL Ages 10 to 20 years ??Acceptable: ? <90 mg/dL ??Borderline high: ??90-129 mg/dL ??High: ? >or= 130 mg/dL Ages > or = 20 years ??Desirable: ?<150 mg/dL ??Borderline high: ??150-199 mg/dL ??High: ? 200-499 mg/dL ?Very high: ?? >or= 499 mg/dL Literature References: 1. Expert Panel on Integrated Guidelines for Cardiovascular Health and Risk Reduction in Children and Adolescents. Pediatrics 2011;128:S213 2. NCEP Expert Panel. Circulation 2004;110:227 Current Interpretive Data was last revised on 2017. Testing performed by: [address] [address] HDL 44 >=40 mg/dL MARY JANE Comment: Interpretive Data Ages < or = 19 years ??Acceptable: ? >45 mg/dL ??Borderline low: ?? 40-45 mg/dL ??Low: ? <40 mg/dL Ages > or = 20 years ??Desirable: ?>or= 60 mg/dL ??Low: ? <40 mg/dL Literature References: 1. Expert Panel on Integrated Guidelines for Cardiovascular Health and Risk Reduction in Children and Adolescents. Pediatrics 2011;128:S213 2. NCEP Expert Panel. Circulation 2004;110:227 Current Interpretive Data was last revised on 2017. Testing performed by: [facility], [address] [place] [address]., [address] LDL, calculated 108 <=129 mg/dL MARY JANE PHAM Comment: Interpretive Data Ages < or = 19 years ??Acceptable: ? <110 mg/dL ??Borderline high: ??110-129 mg/dL ??High: ?>or= 130 mg/dL Ages > or = 20 years ??Optimal: ? <100 mg/dL ??Near optimal: ?100-129 mg/dL ??Borderline high: ?? 130-159 mg/dL ??High: ?>160 mg/dL Literature References: 1. Expert Panel on Integrated Guidelines for Cardiovascular Health and Risk Reduction in Children and Adolescents. Pediatrics 2011;128:S213 2. NCEP Expert Panel. Circulation 2004;110:227 Current Interpretive Data was last revised on 2017. Testing performed by: [address] [address] Non-HDL Cholesterol 132 mg/dL MARY JANE Comment: Interpretive Data Ages < or = 19 years ??Acceptable: ?<120 mg/dL ??Borderline high: ??120-144 mg/dL ??High: ?>145 mg/dL Ages > or = 20 years ??When triglycerides are >200 mg/dL, Non-HDL cholesterol is a secondary target of ? therapy with treatment goals that are 30 mg/dL greater than the LDL cholesterol target. ? Literature References: 1. Expert Panel on Integrated Guidelines for Cardiovascular Health and Risk Reduction in Children and Adolescents. Pediatrics 2011;128:S213 2. NCEP Expert Panel. Circulation 2004;110:227 Current Interpretive Data was last revised on 2017. Testing performed by: [address] [address] Chol/HDL ratio 4 MARY JANE Comment:Testing performed by : [address] [address] Blood 08/14/2023 8:47 PM CDT 08/14/2023 8:52 PM CDT us Philippe Mcguire MD LAB BLOOD ORDERABLES Final Result MARY JANE [address] [facility] [place] [address] * Dexa Axial Skeleton Bone Density 1 or 2 Site (08/02/2022 10:53 AM CDT) Anatomical Region Laterality Modality Body N/A Radiographic Lizeth ging Narrative 08/02/2022 3:34 PM CDT Patient Name: Karly Marques Date of : 1955 Date of scan: 08/02/2022 Bone mineral density was performed on a [employer] Discovery Densitometer. ?? Based on machine cross-calibration and precision studies the least significant changes of this densitometer is 0.024 g/cm2 at the spine, 0.020 g/cm2 at the total proximal femur, and 0.014g/cm2 at the forearm. HISTORY: This is a 67 y.o. postmenopausal female with a history of breast cancer, low bone mass, and thyroid disease. She reports that she has quit smoking. She has never used smokeless tobacco. Currently on treatment with calcium, vitamin D, aromatase inhibitor, anticoagulants, and diuretics, previously treated with zoledronic acid (Zometa) and tamoxifen, and current complaint of back pain and leg pain. INDICATIONS: Menopause status, treatment monitoring, aromatase inhibitor therapy, and history of low bone mass. FINDINGS: BONE MINERAL DENSITY OF THE LUMBAR SPINE Bone Mineral Density (BMD) of the lumbar spine was measured from L1-L4 and the average density was calculated to be 1.047 gm/cm2. This corresponds to a T-score (standard deviations from the mean of young adults) of 0.0. When compared to the previous study of 11/10/2020 there has been no significant changes in bone density. BONE MINERAL DENSITY OF THE PROXIMAL FEMUR Bone Mineral Density (BMD) of the left hip total was found to be 0.735 gm/cm2. This corresponds to a T-score standard deviations from the mean of young adults of -1.7. Femoral neck is 0.545 gm/cm2 with a T-score (standard deviations from the mean of young adults) of -2.7. When compared to the previous study of 11/10/2020 there has been a -0.053 gm/cm (-6.7%) decrease in bone density that is considered significant. SUMMARY: Bone mineral density shows evidence of osteoporosis and marked increase risk of fracture. There has been a significant decrease in bone density since previous measurement. ADDITIONAL COMMENTS: Postmenopausal Women and Men Over 50: Diagnostic criteria: Osteoporosis: BMD at or below -2.5 T-score; Osteopenia (low bone mass): BMD between -1.0 and -2.5 T-score. If the patient has a history of a fragility fracture, a fracture that occurred with trauma equivalent to a fall from a standing position or less, then the diagnosis is osteoporosis regardless of bone density. The history and data sections of the bone mineral density scan were prepared by Yesenia Tineo(Gwendolyn) MARY ??who is accredited by the International Society of Clinical Densitometry. The overall patient assessment and scan interpretation were performed by Kaylie Castro MD ??who is certified by the International Society of Clinical Densitometry. [id number] Khris Arthur MD IM DXA PROCEDURES F inal Result * COLONOSCOPY REPORT (07/03/2017) Anatomical Region Laterality Modality Other us Provider Scanning GI PROCEDURE ORDERABLES Edited Result - Final * Screening Mammogram (08/19/2016 7:27 PM CDT) Anatomical Region Laterality Modality Breast N/A Mammography 08/19/2016 7:27 PM CDT Narrative 08/19/2016 7:27 PM CDT ANTHONY SARABIA M.D. JUDY RINCON M.D. FINAL REPORT The radiology attending physician has personally reviewed this study, and has reviewed and/or edited this written report and agrees with it. ACC# ??Date Time ??Exam [id number] Aug 19, 2016 14:27:00 [facility] [id number] Diag Mamm, inc CAD, unilat L ?? Technologist(s): Carla Harris; ; [id number] Aug 19, 2016 15:39:00 [facility] [id number] Breast US unilateral, ltd L ACC# ??Date Time ??Exam [id number] Aug 19, 2016 14:27:00 [facility] [id number] Diag Mamm, inc CAD, unilat L ?? Technologist(s): Carla Harris; ; [id number] Aug 19, 2016 15:39:00 [facility] [id number] Breast US unilateral, ltd L EXAMINATION: ?? LEFT FULL FIELD DIGITAL DIAGNOSTIC MAMMOGRAM WITH CAD AND LEFT BREAST SONOGRAM HISTORY: 7-year-old woman with history of left breast malignancy status post bilateral mastectomy now with 2 palpable areas of discomfort on the left MAMMOGRAM TECHNIQUE: Full field digital craniocaudal and mediolateral oblique views were obtained. ??Computer Aided Detection was performed. COMPARISON: 07/21/2014 (prior to mastectomy) BREAST PARENCHYMAL COMPOSITION: Patient is status post mastectomy. MAMMOGRAM FINDINGS: Postsurgical changes of left mastectomy noted with no suspicious mass, microcalcification, or architectural distortion. SONOGRAM FINDINGS: Directed sonogram of the two palpable areas of concern in the periareolar and lateral left breast was performed. ??No focal abnormal solid or cystic lesion is identified in the reported areas of palpable concern. Directed physical examination of the area of concern demonstrates no definite suspicious palpable abnormality at this time. ?? IMPRESSION: 1) No suspicious mammographic or sonographic findings are identified in the reported areas of palpable concern. Any further evaluation at this time should be based on clinical assessment. Clinical followup with Dr. Arthur is recommended. OVERALL FINAL ASSESSMENT: BI-RADS Category 2: Benign finding. ??Any decision to biopsy should be based on clinical assessment. ?? Requested By: Khris Arthur ??, MPH Dictated By: ?? JUDY RINCON M.D. ??on Aug 19 2016 ??3:50P This document has been electronically signed by: ANTHONY SARABIA M.D. on Aug 19 2016 ??4:20P [id number] Procedure Note Miscellaneous, Not In File / Provider, MD Tyler - 09/17/2016 ANTHONY SARABIA M.D. JUDY RINCON M.D. FINAL REPORT The radiology attending physician has personally reviewed this study, and has reviewed and/or edited this written report and agrees with it. [facility]# Date Time Exam [id number] Aug 19, 2016 14:27:00 [facility] [id number] Diag Mamm, inc CAD, unilat L Technologist(s): Carla Harris; ; [id number] Aug 19, 2016 15:39:00 [facility] [id number] Breast US unilateral, ltd L ACC# Date Time Exam [id number] Aug 19, 2016 14:27:00 C [id number] Diag Mamm, inc CAD, unilat L Technologist(s): Carla Harris; ; [id number] Aug 19, 2016 15:39:00 C 75152 Breast US unilateral, ltd L EXAMINATION: LEFT FULL FIELD DIGITAL DIAGNOSTIC MAMMOGRAM WITH CAD AND LEFT BREAST SONOGRAM HISTORY: 7-year-old woman with history of left breast malignancy status post bilateral mastectomy now with 2 palpable areas of discomfort on the left MAMMOGRAM TECHNIQUE: Full field digital craniocaudal and mediolateral oblique views were obtained. Computer Aided Detection was performed. COMPARISON: 07/21/2014 (prior to mastectomy) BREAST PARENCHYMAL COMPOSITION: Patient is status post mastectomy. MAMMOGRAM FINDINGS: Postsurgical changes of left mastectomy noted with no suspicious mass, microcalcification, or architectural distortion. SONOGRAM FINDINGS: Directed sonogram of the two palpable areas of concern in the periareolar and lateral left breast was performed. No focal abnormal solid or cystic lesion is identified in the reported areas of palpable concern. Directed physical examination of the area of concern demonstrates no definite suspicious palpable abnormality at this time. IMPRESSION: 1) No suspicious mammographic or sonographic findings are identified in the reported areas of palpable concern. Any further evaluation at this time should be based on clinical assessment. Clinical followup with Dr. Arthur is recommended. OVERALL FINAL ASSESSMENT: BI-RADS Category 2: Benign finding. Any decision to biopsy should be based on clinical assessment. Requested By: Khris Arthur MD, MPH Dictated By: JUDY RINCON M.D. on Aug 19 2016 3:50P This document has been electronically signed by: ANTHOYN SARABIA M.D. on Aug 19 2016 4:20P [id number] us Not In File Miscellaneous IMG MAMMO PROCEDURES F inal Result from Last 3 Months or Most Recently Relevant to Health Maintenance Insurance [facility] MEDICARE SOLUTIONS MEDICARE SOLUTIONS [employer] MEDICARE SOLUTIONS Advance Directives For more information, please contact: [phone] Documents on File Type Date Recorded Patient Liability Claims Examiner Expl anation ADVANCE DIRECTIVE 12/23/2021 2:49 PM Power of Mold Hoister-Medical ADVANCE DIRECTIVE 12/23/2021 2:49 PM Living Will * Full Code (Latest Code Status on File) Date Activated Date Inactivated Comments 08/14/2023 6:40 PM 08/18/2023 5:22 PM * Full Code Date Activated Date Inactivated Comments 08/14/2023 5:58 PM 08/14/2023 5:58 PM * Full Code Date Activated Date Inactivated Comments 02/09/2022 7:34 PM 02/17/2022 3:45 PM * Full Code Date Activated Date Inactivated Comments 12/23/2021 7:33 AM 12/26/2021 7:20 PM * Full Code Date Activated Date Inactivated Comments 09/12/2021 2:57 AM 09/14/2021 8:48 PM Healthcare Agents on File Name Relationship Healthcare Agent Relationshi p Communication Yunior Marques Daughter Health Care Agent Jimmie Marques Spouse First Alternate Health Care Agent Care Teams Speech Language Pathologist Travel Relationship Specialty Start Date End Date Justen Gale MD [facility] [address] [place] [address] PCP - General 10/09/17 Liu Jerez MD Consulting Physician Gastroenterology 07/28/17 [place] [address] [facility] [address] [place] [address] Consulting Physician Pulmonary Disease 08/03/17 Khris Arthur MD [address] [facility] [address] [place] [address] Medical Oncologist/Linoleum Layer Apprentice Medical Oncology 10/23/17 [place] [address] [facility] [address] [place] [address] Surgeon Orthopedic Surgery 10/23/17 [place] [address] [facility] [address] [place] [address] Consulting Physician Pain Management 10/23/17 [place] [address] [facility] [address] [place] [address] Referring Physician General Surgery 01/26/18 [place] [address] [facility] [address] [place] [address] Consulting Physician Neurology 01/26/18
--- OUTSIDE RECORDS SUMMARY | 2024-04-26 04:17 | XMS_ITS | Encounter Summary ---
Author Organization [facility] Healthcare Address [address] [place] [address] Care Team Providers Care Dredge Engineer Name Role Phone Liu Jerez MD Unavailable Albert Corbin MD Unavailable Justen Gale MD Primary Care Provider Khris Arthur MD Unavailable [phone] Ko Melendez MD Unavailable [phone] John Paul Moyer MD Unavailable Annel Rod MD Unavailable Anali MARSHALL MD, Carlos M. Unavailable Reason for Visit * Reason Comments Sore Throat Encounter Details Date Type Department Care Team (Late st Contact Info) Description 01/05/2024 2:39 AM CDT - 01/05/2024 3:44 AM CDT Emergency [facility] Emergency Department [facility] [place] [address] Jeremías Smith MD [address] [facility] [facility] [address] [place] [address] Acute cystitis without hematuria (Primary Dx); Acute pharyngitis, unspecified etiology Discharge Disposition: Discharge to home or self care Social History Tobacco Use Types Packs/Day Years Used Date Smoking Tobacco: Former Smokeless Tobacco: Never Comments:remote tobacco use Alcohol Use Standard Drinks/Week Comments No 0 (1 standard drink = 0.6 oz pur e alcohol) [facility] Utilities Answer Date Recorded In the past 12 months has e [employer], gas, oil, or water [employer] threatened to shut off services in your [...] answer 08/15/2023 How often do you attend [facility] or hindu services? Patient unable to answer 08/15/2023 Do you belong to any clubs o r organizations such as confucianist groups, unions, fraternal or athletic groups, or [...] place to sleep or slept in a assisted (including now)? No 08/15/2023 Personal Safety Answer Date Recorded Have you ever been in or are you currently in a harmful physical or emotional relationship or is someone making you feel afraid or unsafe? 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 Gender Identity Not on file Sexual Orientation Not on file documented as of this encounter Last Filed Vital Signs Vital Sign Reading Time Taken Comments Blood Pressure 152/89 01/05/2024 3:15 AM CDT Pulse 85 01/05/2024 3:15 AM CDT Temperature 36.4 ??C (97.6 ??F) 01/04/2024 9:18 PM CDT Respiratory Rate 21 01/05/2024 3:15 AM CDT Oxygen Saturation 97% 01/05/2024 3:15 AM CDT Inhaled Oxygen Concentration - - Weight 120.5 kg (265 lb 10.5 oz) 01/04/2024 9:18 PM CDT Height - - Body Mass Index 50.19 12/28/2023 12:43 PM CDT documented in this encounter Discharge Instructions * Attachments The following attachments cannot be sent through Care Everywhere. * Pharyngitis (Discharge Care) (Gabonese) * Urinary Tract Infection in Older Adults (AfterCare(R) Instructions(ER/ED)) (Gabonese) documented in this encounter Medications at Time of Discharge albuterol HFA (PROVENTIL HFA,VENTOLIN HFA,PROAIR HFA) 90 mcg/actuation inhaler Inhale 2 puffs every 6 (six) hours as needed for wheezing or shortness of breath 04/19/2021 BD Ultra-Fine Short Pen Needle 31 gauge x 5/16 needle USE 6 TIMES DAILY DIRECTED 06/24/2021 blood glucose diagnostic (Ameibouch Ultra Test) strip 4 (four) times a day 02/01/2021 dicyclomine (BENTYL) 10 mg capsule Take 1 capsule (10 mg total) by mouth 4 (four) times a day as needed (abd cramps) 60 capsule 08/24/2023 exemestane (AROMASIN) 25 mg tabletIndications: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, unspecified estrogen receptor status (HCC),Malignant neoplasm of overlapping sites of left female breast, unspecified estrogen receptor status (HCC),Malignant neoplasm of female breast, unspecified estrogen receptor status, unspecified laterality, unspecified site of breast (HCC) Take 1 tablet (25 mg total) by mouth nightly 90 tablet 3 03/21/2023 gabapentin (NEURONTIN) 300 mg capsule Take 1 capsule (300 mg total) by mouth 3 (three) times a day 06/20/2023 HYDROcodone-acetamin ophen (NORCO) 10-325 mg per tablet Take 1 tablet by mouth every 6 (six) hours as needed for pain 12/28/2023 insulin glargine 100 unit/mL vial for injection Inject 32 Units under the skin daily Takes in the morning 08/18/2023 insulin lispro (HumaLOG, ADMELOG) 100 unit/mL vial for injection Inject 28 Units under the skin 3 (three) times a day before meals 28 units plus sliding scale before meals methenamine (HIPREX) 1 gram tablet Take 1 tablet (1,000 mg total) by mouth 2 (two) times a day 10/24/2023 naloxone (NARCAN) 4 mg/actuation spray,non-aerosol 05/13/2021 ondansetron (ZOFRAN) 4 mg tablet Take 1 tablet (4 mg total) by mouth every 8 (eight) hours as needed for nausea or vomiting 11/08/2023 ondansetron ODT (ZOFRAN-ODT) 4 mg disintegrating tablet Take 1 tablet (4 mg total) by mouth every 4 (four) hours as needed for nausea or vomiting 20 tablet 08/24/2023 oxyBUTYnin XL (DITROPAN XL) 15 mg 24 hr tablet Take 1 tablet (15 mg total) by mouth daily 06/28/2022 rivaroxaban (Xarelto) 20 mg tabletIndications:Ch ronic anticoagulation,Hist ory of pulmonary embolism,History of DVT (deep vein [...] total) by mouth daily 30 tablet 11 12/27/2023 rOPINIRole (REQUIP) 5 mg tablet Take 1 tablet (5 mg total) by mouth nightly Taken at 2100 documented as of this encounter Discharge Disposition Disposition Code Departure Means Destination Comment s Discharge to home or self care documented in this encounter ED Notes * Jeremías Smith MD - 01/05/2024 3:00 AM CDT Patient Name: Karly Marques Patient Age: 68 y.o. Date of Service: 01/04/2024 Chief Complaint Patient presents with Sore Throat HPI 68-year-old female presents today with urinary tract symptoms. States that for the last 3-4 days she has had increased frequency urination, urgency and dysuria. Feels like when she has had a urinary tract infection in the past. No fever, chills, back pain, nausea or vomiting. No focal areas of abdominal pain. She also complains of a sore throat but no difficulty speaking or swallowing, no shortness of breath. Past Medical History: Diagnosis Date Adiposity obesity Breast CA (HCC) Cancer (CMS/HCC) (HCC) breast CHF (congestive heart failure) (CMS/HCC) (HCC) Depression Depression Diabetes ([facility]) Disorder of thyroid Thyroid disease DVT (deep venous thrombosis) ([facility]) ([facility]) HX OTHER MEDICAL restless leg syndrome HX OTHER MEDICAL RLS Hypertension Hypertension Osteoarthritis osteoarthritis PE (pulmonary thromboembolism) ([facility]) ([facility]) Sleep apnea Exam Vitals: 01/04/24 2118 01/05/24 0315 BP: 170/91 152/89 Pulse: 84 85 Resp: 18 21 Temp: 36.4 ??C (97.6 ??F) TempSrc: Tympanic SpO2: 100% 97% Weight: 120.5 kg (265 lb 10.5 oz) Gen: NAD Head: NCAT Eyes: EOMI ENT: MMM, voice clear no pharyngeal exudates or erythema Neck: No cervical adenopathy Pulm: CTAB Cardio: Rad 2+ Abd: Bs+, no ttp Msk: No deformity, no edema Skin: warm, dry Neuro: Alert, moving ext bilat Labs with values returned at the time of this note: Labs Reviewed URINALYSIS AND REFLEX TO MICROSCOPIC AND CULTURE - Abnormal Result Value Color, ur Yellow Clarity, ur Clear Specific gravity, ur 1.021 pH, urine 6.0 Protein, ur ql Negative Glucose, ur ql 4+ (*) Ketones, ur Negative Bilirubin, ur Negative Blood, ur Trace (*) Urobilinogen, ur <2.0 Nitrite, ur Negative Leukocyte esterase, ur 2+ (*) UA reflex comment Reflex to microscopic UA will be performed. URINALYSIS, MICROSCOPIC ONLY - Abnormal WBC, ur 11-20 (*) RBC, ur 3-5 (*) Epithelial cells, squamous, ur 1-5 Bacteria, ur Trace (*) Mucous, ur Present (*) Culture Reflex Comment Reflex to urine culture will be performed. STREPTOCOCCUS GROUP A PCR Strep A DNA Not Detected INFLUENZA A/B, RSV, AND COVID-19 PCR COVID-19 RNA Negative Influenza A RNA Negative Influenza B RNA Negative RSV RNA Negative Narrative: Is the Patient experiencing symptoms consistent with COVID?->Yes URINE CULTURE No orders to display Procedures Medications fosfomycin (MONUROL) packet 3 g (3 g oral Given 01/05/24 0312) MDM Patient overall well-appearing with stable vitals. Abdominal exam benign. Lungs clear and satting well, doubt pneumonia. 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 COVID and influenza negative. Suspect most likely viral pharyngitis as cause of sore throat. Urinalysis shows some signs of urinary tract infection and patient has had similar UTIs in the past. Received dose of fosfomycin last time and christ l repeat in emergency department given multiple allergies. History exam not suggestive of pyelonephritis. Discussed follow-up with PCP discussed return precautions and answered questions. Impression 1. Acute cystitis without hematuria 2. Acute pharyngitis, unspecified etiology Jeremías Smith MD 01/05/24 0328 * Tamika Reed RN - 01/04/2024 9:15 PM CDT Pt c/o sore throat, Pt also states was recently Dx with a UTI, pt finished antibiotics, pt states I kind of feel like its coming back , pt denies fevers or other complaints at time of triage documented in this encounter Plan of Treatment Not on file documented as of this encounter Procedures Procedure Name Priority Date/Time Associated Diagnosis Comments URINALYSIS AND REFLEX TO MICROSCOPIC AND CULTURE STAT 01/04/2024 9:34 PM CDT URINALYSIS, MICROSCOPIC ONLY STAT 01/04/2024 9:34 PM CDT URINE CULTURE STAT 01/04/2024 9:34 PM CDT INFLUENZA A/B, RSV, AND COVID-19 PCR STAT 01/04/2024 9:27 PM CDT STREPTOCOCCUS GROUP A PCR STAT 01/04/2024 9:27 PM CDT documented in this encounter Results * (ABNORMAL) Urine culture Urine (01/04/2024 9:34 PM CDT) Report Final Report: Greater than or equal to 100,000 colonies/mL of Escherichia coli (.) Comment:Testing performed by : [facility], [address], [place]., [address] Organism ESCHERICHIA COLI MARY JANE Urine 01/04/2024 9:34 PM CDT 01/05/2024 2:53 AM CDT Narrative MARY JANE PHAM - 01/07/2024 11:30 AM CDT Urine culture reflexed based upon urinalysis results. Testing performed by [facility] ([phone]) Organism Antibiotic Method Susceptibility Escherichia coli Ampicillin INTERPRETATION Resistant Escherichia coli Cefazolin INTERPRETATION Susceptible Escherichia coli Nitrofurantoin INTERPRETATION Susceptible Escherichia coli Gentamicin INTERPRETATION Susceptible Escherichia coli Trimethoprim with Sulfamethoxazole IN TERPRETATION Resistant Escherichia coli Meropenem INTERPRETATION Susceptible Escherichia coli Cefepime INTERPRETATION Susceptible Escherichia coli Ciprofloxacin INTERPRETATION Resistant Escherichia coli Ceftazidime INTERPRETATION Susceptible Escherichia coli Ceftriaxone INTERPRETATION Susceptible Escherichia coli Piperacillin/Tazobactam INTERPRETATIO N Susceptible Escherichia coli Cephalexin INTERPRETATION Susceptible Escherichia coli Cefuroxime-axetil INTERPRETATION Susceptible Escherichia coli Cefdinir INTERPRETATION Susceptible Blaze [facility] [employer]EVELING MACHINE LAB MICROBIOLOGY - GENERAL ORDER [place]APARRO Final Result MARY JANE [address] [facility] [place] [address] * (ABNORMAL) Urinalysis, microscopic only (01/04/2024 9:34 PM CDT) WBC, ur 11-20(A) 0 - 5 /HPF Comment:Testing performed by : [address] [address] RBC, ur 3-5(A) 0 - 2 /HPF MARY JANE Comment:Testing performed by : [address] [address] Epithelial cells, squamous, ur 1-5 0 - 5 /HPF MARY JANE Comment:Testing performed by : [address] [address] Bacteria, ur Trace(A) MARY JANE Comment:Testing performed by : [address] [address] Mucous, ur Present(A) MARY JANE Comment:Testing performed by : [address] [address] Culture Reflex Comment Reflex to urine culture will be performed. MARY JANE Comment:Testing performed by : [address] [address] Urine 01/04/2024 9:34 PM CDT 01/04/2024 9:41 PM CDT us Jeremías Smith MD LAB URINE ORDERABLES Final Res ult MARY JANE [address] [facility] [place] [address] * (ABNORMAL) Urinalysis reflex to microscopic and culture Urine (01/04/2024 9:34 PM CDT) Color, ur Yellow Yellow Comment:Testing performed by : [address] [address] Clarity, ur Clear Clear MARY JANE Comment:Testing performed by : [address] [address] Specific gravity, ur 1.021 1.003 - 1.030 MARY JANE Comment:Testing performed by : [address] [address] pH, urine 6.0 MARY JANE Comment: Interpretive Data ? Urine pH is affected by diet, medications, systemic acid-base disturbances, and renal tubular function. ??pH may affect urinary stone formation. ??For example, urine pH below 6.0 may help reduce the tendency for calcium phosphate stones and pH greater than 6.0 may reduce the tendency for uric acid stone formation. Source: [facility] [employer] Current Interpretive Data was last revised on 2017 Testing performed by: [address] [address] Protein, ur ql Negative Negative MARY JANE Comment:Testing performed by : [address] [address] Glucose, ur ql 4+(A) Negative MARY JANE Comment:Testing performed by : [address] [address] Ketones, ur Negative Negative MARY JANE Comment:Testing performed by : [address], [place]., [address] Bilirubin, ur Negative Negative MARY JANE Comment:Testing performed by : [address], [place]., [address] Blood, ur Trace(A) Negative MARY JANE Comment:Testing performed by : [address], [place]., [address] Urobilinogen, ur <2.0 <2.0 mg/dL MARY JANE Comment:Testing performed by : [address], [place]., [address] Nitrite, ur Negative Negative MARY JANE Comment:Testing performed by : [address], [place]., [address] Leukocyte esterase, ur 2+(A) Negative MARY JANE Comment:Testing performed by : [address], [place]., [address] UA reflex comment Reflex to microscopic UA will be performed. MARY JANE Comment:Testing performed by : [address], [place]., [address] Urine 01/04/2024 9:34 PM CDT 01/04/2024 9:41 PM CDT Jeremías Smith MD LAB MICROBIOLOGY - GENERAL ORD ERABLES Final Result MARY JANE [address] [facility] [place] [address] * Influenza A/B, RSV, and COVID-19 PCR Nasopharyngeal (01/04/2024 9:27 PM CDT) COVID-19 RNA Negative Negative Comment:Testing performed by : [address], [place]., [address] Influenza A RNA Negative Negative MARY JANE Comment:Testing performed by : [address], [place]., [address] Influenza B RNA Negative Negative MARY JANE Comment:Testing performed by : [address], [place]., [address] RSV RNA Negative Negative MARY JANE Comment: Interpretive data: Testing performed by [facility]. This test is performed using the [employer] Xpert Xpress CoV-2/Flu/RSV plus assay. This is a multiplex, real-time reverse transcriptase PCR assay intended for the qualitative detection of nucleic acid from SARS-CoV-2, influenza A, influenza B, and respiratory syncytial virus. This assay has been cleared by the [place] Food and Drug administration. The performance characteristics have been verified by the [facility]. ??Results must be considered in the clinical context, and a negative result does not rule out infection. Interpretive Data last revised 2023 Testing performed by: [address] [address] Nasopharyngeal 01/04/2024 9: 27 PM CDT 01/04/2024 9:41 PM CDT [facility] MARY JANE - 01/04/2024 10:29 PM CDT Is the Patient experiencing symptoms consistent with COVID?->Yes Jeremías Smith MD LAB MICROBIOLOGY - GENERAL ORD ERABLES Final Result MARY JANE [address] [facility] [place] [address] * Streptococcus Group A PCR Throat (01/04/2024 9:27 PM CDT) Pathologist [facility] Strep A DNA Not Detected Not Detected Comment: This test is performed using the [employer] Xpert Group A Streptococcal Assay. This is a qualitative, real-time PCR assay that detects Group A Strep using throat specimens from patients suspected of having streptococcal pharyngitis. This assay does not detect other beta-hemolytic streptococci including Group C or Group G. ??Group C and G have been associated with pharyngitis and, occasionally, acute nephritis but do not cause rheumatic fever. If suspected, order Throat Culture, Routine. This assay has been cleared by the [place] Food and Drug Administration, and its performance characteristics have been verified by the performing laboratory. Testing performed by: [address] [address] Throat 01/04/2024 9:27 PM CDT 01/04/2024 9:41 PM CDT us Jeremías Smith MD LAB MICROBIOLOGY - GENERAL ORD ERABLES Final Result MARY JANE [address] [facility] [place] [address] documented in this encounter Visit Diagnoses Diagnosis Acute cystitis without hematuria- Primary Acute pharyngitis, unspecified etiology documented in this encounter Administered Medications Inactive Administered Medications - up to 3 most recent administrations Medication Order MAR Action Action Date Dose Rate Site fosfomycin (MONUROL) packet 3 g 3 g, oral, Once, On Mon01/05/24 at 0330, For 1 dose, Pour contents of packet into 3-4 oz of cool water, stir to dissolve and administer immediately., Indications: Urinary Tract/Genitourinary InfectionIndications:Urinary Tract/Genitourinary Infection Given 01/05/2024 3:12 AM CDT 3 g documented in this encounter Active and Recently Administered Medications Times are shown in CDT. Scheduled Medication Order 01/03/2024 01/04/2024 01/05/2024 fosfomycin (MONUROL) packet 3 g (COMPLETED) 3 g, oral, Once, On Mon01/05/24 at 0330, For 1 dose, Pour contents of packet into 3-4 oz of cool water, stir to dissolve and administer immediately., Indications: Urinary Tract/Genitourinary Infection 0312 (Given - Provid er: Rosa Tomlinson RN) documented in this encounter Orders Medications Ordered That Tyler ht Not Have Been Administered Count Last Ordered Date First Ordered Date fosfomycin (MONUROL) packet 3 g 1 4 documented in this encounter Care Teams Dredge Engineer Relationship Specialty Start Date End Date Justen Gale MD [address] [place] [address] PCP - General 10/09/17 Liu Jerez MD Consulting Physician Gastroenterology 07/28/17 [place] [address] [facility] [address] [place] [address] Consulting Physician Pulmonary Disease 08/03/17 Khris Arthur MD [address] [facility] [address] [place] [address] Medical Oncologist/Biomedical Engineering Internship Medical Oncology 10/23/17 [place] [address] [facility] [facility] [address] [place] [address] Surgeon Orthopedic Surgery 10/23/17 [place] [address] [facility] [facility] [address] [place] [address] Consulting Physician Pain Management 10/23/17 [place] [address] [facility] [facility] [address] [place] [address] Referring Physician General Surgery 01/26/18 [place] [address] [address] [place] [address] Consulting Physician Neurology 01/26/18 documented as of this encounter
--- OUTSIDE RECORDS SUMMARY | 2024-04-26 04:17 | XMS_ITS | Encounter Summary ---
Author Organization [facility] Address [address] [place] [address] Phone Care Team Providers Care Banana Handler Name Role Phone Liu Jerez MD Unavailable Albert Corbin MD Unavailable Justen Gale MD Primary Care Provider Khris Arthur MD Unavailable [phone] Ko Melendez MD Unavailable John Paul Moyer MD Unavailable Annel Rod MD Unavailable Anali MARSHALL MD, Carlos M. Unavailable [phone] Reason for Referral * Consultation (Routine) - Pending Review Specialty Diagnoses / Procedures Referred By Contac t Referred To Contact Genetics / Pediatric Genetics Diagnoses Malignant neoplasm of upper-inner quadrant of left breast in female, estrogen receptor positive (HCC) Darcy Goel, CURT[place] [address] [place] [address] Phone: tel: fax: [facility] (All Locations) Referral ID Status Reason Start Date Expiration Date Visits Requested Visits Authorized [id number] Pending Review Specialty Services Required 11/21/2023 12/20/2024 1 1 Question Answer Please select the performing region: [facility] (All Locations) [167] # of visits: 1 Comments History of breast cancer, 2 sisters with breast cancer, father with prostate cancer. Pls discuss any expanded genetic testing and any implications for her daughters. Reason for Visit * Oncology (Routine) - Closed Specialty Diagnoses / Procedures Referred By Elyssa t Referred To Contact Oncology Diagnoses Malignant neoplasm of overlapping sites of left female breast, unspecified estrogen receptor status (HCC) Justen Gale MD [address] [place] [address] Phone: tel: fax: Khris Arthur MD Phone: tel: fax: Referral ID Status Reason Start Date Expiration Date V isits Requested Visits Authorized [id number] Closed Specialty Services Required 10/18/2019 04/23/2024 99 [phone] Encounter Details Date Type Department Care Team (Late st Contact Info) Description 11/21/2023 2:30 PM CDT Office Visit [facility] Oncology [address] [facility] Advanced Medicine 7th [place] [address] [place] [address] Khris Arthur MD [address] [facility] [address] [place] [address] Malignant neoplasm of upper-inner quadrant of left breast in female, estrogen receptor positive (HCC) (Primary Dx) Social History Tobacco Use Types Packs/Day Years Used Date Smoking Tobacco: Former Smokeless Tobacco: Never Comments:remote tobacco use Alcohol Use Standard Drinks/Week Comments No 0 (1 standard drink = 0.6 oz pur e alcohol) [facility] Utilities Answer Date Recorded In the past 12 months has e [employer], gas, oil, or water [employer] threatened to shut off services in your [...] often do you attend chur ch or anabaptism services? Patient unable to answer 08/15/2023 Do you belong to any clubs o r organizations such as congregational groups, unions, fraternal or athletic groups, or [...] slept in a usp (including now)? No 08/15/2023 Personal Safety Answer Date Recorded Have you ever been in or are you currently in a harmful physical or emotional relationship or is someone making you feel afraid or unsafe? 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 Gender Identity Not on file Sexual Orientation Not on file documented as of this encounter Last Filed Vital Signs Vital Sign Reading Time Taken Comments Blood Pressure 146/80 11/21/2023 2:43 PM CDT Pulse 79 11/21/2023 2:43 PM CDT Temperature 36.4 ??C (97.6 ??F) 11/21/2023 2:43 PM CD T Respiratory Rate 18 11/21/2023 2:43 PM CDT Oxygen Saturation 96% 11/21/2023 2:43 PM CDT Inhaled Oxygen Concentration - - Weight 121 kg (266 lb 12.8 oz) 11/21/2023 2:43 P M CDT Height - - Body Mass Index 50.41 11/04/2023 8:59 PM CDT documented in this encounter Patient Instructions * Patient Instructions* Darcy Goel NP - 11/21/2023 2:30 PM CDT I will place a referral for genetic counseling for you to discuss family history and recommendations for your daughters. If you don't hear from their office, their phone number to contact directly is: [phone] Your daughters can also call the high risk breast cancer clinic (run by Dr. Heaven Mercedes) to see if thatis something they are eligible for or interested in: [phone]. This is the main scheduling hub.When they call, they could let them know they are interested in high risk clinic with Dr. Mercedes and they will get them scheduled. See you in 1 year! Thank you, Darcy Goel NP Healthy Behavior Recommendations: Evidence suggests an active lifestyle and achieving and maintaining an ideal body weight (20-25 BMI) is optimal for health. Experts recommend at least 30 minutes of moderate to vigorous activity per day as tolerated, 5 days a week. Eat healthy, including plenty of fresh fruits and vegetables daily. Strive to have 2/3 cup of your plate to be vegetables, fruits, whole grains and beans, while 1/3 or less should be an animal product. Choose fish and chicken and limit red meat and processed meats. Limit alcohol intake to one drink per day or less for a woman and two drinks or less per day for a man. Avoid smoking! Practice sun safety: Use a water resistant sunscreen with SPF of at least 30 to protect against UVAand UVB rays to protect against skin cancer. Apply sunscreen every two hours or after swimming or excessive sweating. Consider using physical barriers whenever possible (ex. Hats, shirts with sleeves, avoid direct sun during peak hours). Keep up-to-date on general health screening tests, including cholesterol, blood pressure and glucose (blood sugar) levels. Please have a primary physician for routine care. You can call [phone] for [facility] Doctors. Get an annual influenza vaccine (flu shot). Get vaccinated with the pneumococcal vaccine if > 64 yrs old, which prevents a type of pneumonia, and re-vaccinated as determined by your primary healthcare team. Get vaccinated with the shingles vaccine if > 60 yrs old COVID19 vaccine recommended. Keep up-to-date on dental and eye exams. Psychological, Emotional, Relational, and Spiritual Aspects of Survivorship: The transition from active treatment to a cancer survivor can be a confusing and emotional time butalso one of personal growth. Survivors often have time to process emotionally what having cancer has meant to them after treatment. Fear of recurrence is a feeling commonly experienced by many survivors after treatment. Some things that might be helpful during this time include: Talk with other cancer survivors by attending a support group. Talk with a professional, either an Concrete Pipe Making Machine Operator or mental health professional. Your oncology team can assist with connecting you to someone who can help with anxiety, depression, etc. There are many normal responses to living with uncertainty and fear of recurrence, but if you find that it prevents you from enjoying life or you have a lot of fear and feel overwhelmed, we recommendyou talk with a mental health professional or a [facility] Counselor. [facility] counseling [phone]. There are many online websites which offer resources for spiritual, emotional, and support networksfor breast cancer survivors: [employer].Diversity Marketplace and Thrive Soloe.org are a few. [place] [employer] Research's iTHRIVE plan is designed to help you heal from cancer treatment, reduce risk of recurrence, and achieve optimal wellness. This is an engaging and easy to use,online platform to create personalized lifestyle-based wellness plans for cancer survivors. https:// www.aicr.org/patients-survivors/ithrive/ Sexual Health: Women should avoid for the first year after completing treatment. Discuss reliable forms of avoiding with your healthcare provider/crabber. If you are a woman planning to get in the future, you should see a doctor specializing in fertility in cancer survivors. We can refer you to a fertility specialist. For women, chemotherapy agents or endocrine therapy may cause vaginal dryness, painful intercourse,reduced sexual desire, and inability to achieve orgasm. Many of these issues are caused by the sudden onset of menopause, which can occur with cancer therapy or from endocrine therapy. If you are experiencing any of these issues, we can refer you to a specialist. There are several xyqn-cio-tieubta vaginal moisturizers that can be used, such as Replens, NeuEve, coconut oil or extra virgin olive oil. Late Effects From Cancer Treatment: It is possible to experience some late effects from any of yourcancer treatments. Whether you experience any of these varies between people and types of treatmentyou have received. Symptoms to report to your healthcare provider right away include, but are not limited to, those asnoted below: feeling more tired or weak than usual chest pain shortness of breath abdominal pain blood in stool or dark, tarry stool loss of appetite weight loss fever, chills recurrent infections drenching night sweats painless swelling of a lymph node change in breast or chest wall such as a new lump, nodule or rash nipple discharge new pain that does not go away Any of the following symptoms should be brought to the attention of your provider: A brand new symptom. A symptom that does not go away or gets worse. Anything you are worried about that might be related to the cancer coming back. Resources you may be interested in: [facility] A National [facility] [place] [facility] http://www.[facility]/ Cancer Resources: www.cancer.net [place] Disabilities Act: The U.S. Department of Justice provides information about the Americans with Disabilities Act (ADA). Toll free number http://www.ada.gov/ Managing your weight after a cancer diagnosis: http://www.cancer.net/sites/cancer.net/files/weight_after_cancer_diagnosis.pdf National Coalition for Cancer Survivorship: http://www.canceradvocacy.org/ [place] Cancer Society Cancer Survivors Network: http://csn.cancer.org/ [employer] Cancer: https://survivorship.cancer.gov/ an online tool for cancer survivors andcaregivers created by the [place] Cancer Society and the National Cancer [place]. It provides: Information on dealing with side effects from cancer and treatment Caregivers with support and resources Practical advice about talking to friends and family about cancer Questions to ask their health care team Help understanding their rights in the workplace CureSearch to end childhood cancer by driving targeted and innovative research with measurable results in an accelerated time frame. https://curesearch.org/Bfag-Ambghdl-qd-Mbuykxxyc-buc-Kpwtmlepq-Cancer Please activate flaveit for online communication. If you are uncertain how to access please contactthe [facility] at: [phone] or [phone]. LIVE WELL! You can reach the office of Dr. Arthur and Darcy Goel NP at or accessMyChart on line. documented in this encounter Progress Notes * Darcy Goel NP - 11/21/2023 2:30 PM CDT Oncology Medicine Follow Up Visit Reason for Visit Stage II, ER positive, HER2 negative breast cancer, currently on exemestane. Oncology History Overview Note 1. Routine screening mammogram on 07/01/2014 demonstrated an abnormality of the left breast. Diagnostic imaging on 07/07/2014 showed the left breast with a 1.1 cm mass in the central outer left breast 10 cm from the nipple and indistinct microcalcifications 9 cm from the nipple in the upper centralright breast. Right unilateral diagnostic mammogram on 07/17/14 showed a 2 mm group of indistinct microcalcifications in the upper central right breast 10 cm from the nipple correlating with calcifications seen on the outside imaging. 2. Biopsy on 07/21/2014, the left breast at 4 o'clock position showed invasive ductal carcinoma, grade 2, with a low mitotic index of 0.1/HPF with an intraductal papilloma. The right lower central stereotactic-guided biopsy showed no atypical or malignant findings. Receptors in the left carcinoma were ER 8, SD 8, HER-2 negative. 3. Cytology on 07/21/2014 of the left axillary lymph node was positive for metastatic adenocarcinoma. She had further biopsy of the left breast at the 2:30 o'clock position on 09/10/2014 showing invasive ductal carcinoma. Another mass at 3 o'clock also showing invasive ductal carcinoma. 4. On 09/23/2014 she underwent bilateral mastectomies. The right simple mastectomy showed no atypical or malignant features and 8 nodes were negative. The left modified radical mastectomy showed invasive ductal carcinoma, 2 foci, similar histologic patterns, grade 1, greatest microscopic dimension 1 cm each. Margins were negative. Associated DCIS 3 to 4 cm, nuclear grade 2, and 3/17 lymph nodes positive. The largest focus 1.3 cm with extranodal extension and soft tissue metastases. 5. Multiple admissions for port or reservoir infection and skin rash, cellulitis X 5. 6. Oncotype 7: low risk. 7. Initiation of adjuvant anastrozole in 12/2014. 8. Switched to adjuvant tamoxifen in 06/2015 on account of AI-induced arthralgias. 9. Bilateral PEs discovered on a CT scan after shortness of breath on 07/28/2016, initiated on Xarelto. 10. Switched to exemestane on 08/09/2016 on account of a hypercoagulable state with multiple PEs and DVTs. Cancer of overlapping sites of left female breast (HCC) 10/13/2017 Initial Diagnosis Cancer of overlapping sites of left female breast (CMS/HCC) Interval History: Doing ok since her last visit. More recently with epigastric abd pain, nausea and vomiting particularly with eating, on mounjaro for DM which she thinks flared her gastroparesis, still not able to eat much, seeing GI in February, A1C continues to be elevated, follows with endocrinology who she seeson Monday. Taking exemestane as recommended. Scared to stop exemestane as sister with metastatic disease, another sister with breast cancer as well, asking about implications for her daughters. Denies any changes in her chest wall or other new issues/concerns. Review of Systems: A 12 point review of systems done, all other systems negative. Past Medical History: Diagnosis Date Adiposity obesity Breast CA (HCC) Cancer (CMS/HCC) (HCC) breast CHF (congestive heart failure) (CMS/HCC) (HCC) Depression Depression Diabetes (HCC) Disorder of thyroid Thyroid disease DVT (deep venous thrombosis) (CMS/HCC) (HCC) HX OTHER MEDICAL restless leg syndrome HX OTHER MEDICAL RLS Hypertension Hypertension Osteoarthritis osteoarthritis PE (pulmonary thromboembolism) (CMS/HCC) ([facility]) Sleep apnea Past Surgical History: Procedure Laterality Date ABSCESS CATHETER INJECTION N/A 11/26/2014 ABSCESS CATHETER INJECTION N/A 11/26/2014 ABSCESS CATHETER INJECTION N/A 11/14/2014 ABSCESS CATHETER INJECTION N/A 11/05/2014 ABSCESS TUBE EXCHANGE N/A 11/05/2014 BREAST SURGERY SECTION section CHOLECYSTECTOMY Cholecystectomy CHOLECYSTECTOMY gallbladder surgery CHOLECYSTECTOMY gallbladder removal HERNIA REPAIR Hernia repair INGUINAL HERNIA REPAIR Hernia repair, inguinal IR FINE NEEDLE ASPIRATION W IMAGE GUIDANCE N/A 07/25/2014 JOINT REPLACEMENT KNEE ARTHROPLASTY Knee replacement KNEE ARTHROPLASTY R knee replacement MASTECTOMY OOPHORECTOMY ovary removed OTHER SURGICAL HISTORY 2013 : Right Total Knee Replacement OTHER SURGICAL HISTORY R ovary removed PORT PLACEMENT CHEST >5 YEARS N/A 11/05/2021 US SOFT TISSUE ABSCESS DRAIN N/A 12/11/2014 US SOFT TISSUE ABSCESS DRAIN N/A 10/24/2014 (Not in a hospital admission) Current Outpatient Medications Medication Sig Dispense Refill albuterol HFA (PROVENTIL HFA,VENTOLIN HFA,PROAIR HFA) 90 mcg/actuation inhaler Inhale 2 puffs every6 (six) hours as needed for wheezing or shortness of breath BD Ultra-Fine Short Pen Needle 31 gauge x 5/16 needle USE 6 TIMES DAILY DIRECTED blood glucose diagnostic (OneTouch Ultra Test) strip 4 (four) times a day dicyclomine (BENTYL) 10 mg capsule Take 1 capsule (10 mg total) by mouth 4 (four) times a day as needed (abd cramps) 60 capsule 0 exemestane (AROMASIN) 25 mg tablet Take 1 tablet (25 mg total) by mouth nightly 90 tablet 3 gabapentin (NEURONTIN) 300 mg capsule Take 1 capsule (300 mg total) by mouth 3 (three) times a day HYDROcodone-acetaminophen (NORCO) 5-325 mg per tablet Take 1 tablet by mouth every 6 (six) hours asneeded for pain for up to 10 doses 10 tablet 0 insulin glargine 100 unit/mL vial for injection Inject 32 Units under the skin daily Takes in the morning insulin lispro (HumaLOG) 100 unit/mL injection Inject 12 Units under the skin 3 (three) times a daybefore meals. methenamine (HIPREX) 1 gram tablet Take 1 tablet (1,000 mg total) by mouth 2 (two) times a day methocarbamoL (ROBAXIN) 500 mg tablet Take 1 tablet (500 mg total) by mouth 2 (two) times a day as needed for muscle spasms naloxone (NARCAN) 4 mg/actuation spray,non-aerosol ondansetron (ZOFRAN) 4 mg tablet Take 1 tablet (4 mg total) by mouth every 8 (eight) hours as needed for nausea or vomiting ondansetron ODT (ZOFRAN-ODT) 4 mg disintegrating tablet Take 1 tablet (4 mg total) by mouth every 4(four) hours as needed for nausea or vomiting 20 tablet 0 oxyBUTYnin XL (DITROPAN XL) 15 mg 24 hr tablet Take 1 tablet (15 mg total) by mouth daily rivaroxaban (Xarelto) 20 mg tablet Take 1 tablet (20 mg total) by mouth daily 30 tablet 3 rOPINIRole (REQUIP) 5 mg tablet Take 1 tablet (5 mg total) by mouth nightly Taken at 2100 No current facility-administered medications for this visit. Allergies Allergen Reactions Ceftriaxone Anaphylaxis R Ceftriaxone Sodium Shortness of breath Cephalosporins Anaphylaxis Lorazepam Unknown Aggrevates restless leg syndrome Adhesive Rash Amlodipine Besylate Swelling Leg swelling Ciprofloxacin Rash Latex Rash Levofloxacin Hives and Unknown Lisinopril Swelling Meropenem Rash Other Rash Piperacillin-Tazobactam Rash Metoclopramide Hcl Unknown Reslizumab Unknown Bactrim [Sulfamethoxazole-Trimethoprim] Itching Ketorolac Itching Macrobid [Nitrofurantoin] Flushing (skin) Metoclopramide Other (See comments) Other reaction(s): Hyperactive Restless leg syndrome Oxycodone Vomiting Pregabalin Other (See comments) Trazodone Other (See comments) Shaky, restlessness, itching, throat swelling Social History Tobacco Use Smoking status: Former Smokeless tobacco: Never Tobacco comments: remote tobacco use Substance and Sexual Activity Drug use: Never Sexual activity: Defer Alcohol Use: Not At Risk (06/16/2023) Received from [facility], [facility] AUDIT-C Frequency of Alcohol Consumption: Never Average Number of Drinks: Patient does not drink Frequency of Binge Drinking: Never Family History Problem Relation Age of Onset Heart failure Mother Congestive Heart Failure; Stroke Mother Stroke; Cause of : Stroke Heart disease Mother Heart disease; Diabetes Mother Diabetes mellitus; Other Mother heart diesease; Cause of : heart diesease Heart attack Brother Myocardial Infarction; Cause of : Myocardial Infarction Stent Brother Coronary Stent Placement; Prostate cancer Father Cancer, prostate; /Cancer, prostate; Cause of : Cancer, prostate Other Father hemochromotosis; Breast cancer Sister Cancer, breast; Other Other Family history of restless leg syndrome; Physical Exam: Vitals: 11/21/23 1443 BP: 146/80 BP Location: Right arm Pulse: 79 Resp: 18 Temp: 36.4 ??C (97.6 ??F) TempSrc: Transdermal SpO2: 96% Weight: 121 kg (266 lb 12.8 oz) Performance Status: ECOG 1 General: She appears well, in no acute distress. HEENT: Pupils equal, round. Extraocular movements are full. She is not pale. She is anicteric. Lymphatics: Lymph node survey is negative with no cervical, supraclavicular, infraclavicular, or axillary adenopathy. Cardiovascular: Heart sounds are normal with no murmur, rub, or gallop. Lungs: Clear to auscultation bilaterally. Abdomen: Soft, nontender, nondistended. No hepatosplenomegaly. Extremities: No edema. Breast: absent. Chest wall with no masses, nodularity or skin changes. No e/o local recurrence. Lab/Radiology/Diagnostic Review: Recent Results (from the past 24 hour(s)) Basic metabolic panel Collection Time: 11/21/23 2:34 PM Result Value Ref Range Sodium 138 135 - 145 mmol/L Potassium, pl 4.1 3.3 - 4.9 mmol/L Chloride 103 97 - 110 mmol/L CO2 29 22 - 32 mmol/L Anion gap 6 2 - 15 mmol/L BUN 15 6 - 25 mg/dL Creatinine 0.63 0.60 - 1.10 mg/dL Glucose 202 (H) 70 - 199 mg/dL Calcium 9.6 8.5 - 10.3 mg/dL eGFR Collection Time: 11/21/23 2:34 PM Result Value Ref Range eGFR >90 >=60 mL/min/1.73 m2 Radiology: DEXA 08/02/22 FINDINGS: BONE MINERAL DENSITY OF THE LUMBAR [...] in bone density that is considered significant. ASSESSMENT AND PLAN: Karly Marques is a 68 y.o. female with stage II, ER positive, HER2 negative breast cancer on adjuvant exemestane. She will continue on exemestane, with plans to complete 10 years of therapy till 12/2024. She wants to stay on indefinitely. She was intolerant of Zometa given in 12/2020, but was willing to take it again due to ongoing bone loss, so will plan yearly reclast X 3 years then following that will recheck DEXA. She will continueon calcium and vitamin D for now as well. 2 sisters with breast cancer, father with prostate cancer. Pt would like to meet with genetic counseling to discuss expanded testing and any implications for her daughters. Discussed that her daughters may be eligible for our high risk clinic with Dr. Mercedes as well. Provided her with the contact information for scheduling if interested. ROV in 1 year with [facility] chair. Encouraged to call in the interim with any questions or concerns. CLEOPATRA Blanc-C Nurse Practitioner [facility] In collaboration with Dr. Khris Arthur Cosigned by Khris Arthur MD at 11/27/2023 2:01 PM CDT documented in this encounter Plan of Treatment Scheduled Orders Name Type Priority Associated Diagnoses Orde r Schedule Comprehensive metabolic panel Lab Routine Malignant neoplasm of upper-inner quadrant of left breast in female, estrogen receptor positive (HCC) Expected: 11/26/2024, Expires: 05/23/2025 Scheduled Referrals Name Type Priority Associated Diagnoses Order Schedule Ambulatory referral to Pediatric Genetics Outpatient Referral Routine Malignant neoplasm of upper-inner quadrant of left breast in female, estrogen receptor positive (HCC) Expected: 12/05/2023 (Approximate), Expires: 11/20/2024 documented as of this encounter Visit Diagnoses Diagnosis Malignant neoplasm of upper-inner quadrant of left breast in female, estrogen receptor positive (HCC)- Primary documented in this encounter Historical Medications * This list may reflect changes made after this encounter. ondansetron (ZOFRAN) 4 mg tablet Take 1 tablet (4 mg total) by mouth every 8 (eight) hours as needed for nausea or vomiting 11/08/2023 methenamine (HIPREX) 1 gram tablet Take 1 tablet (1,000 mg total) by mouth 2 (two) times a day 10/24/2023 added in this encounter Orders Appointment Requests Count Last Ordered Date Fi rst Ordered Date INFUSION APPT REQUEST 60 MIN 1 11/21/2023 [facility] CLINIC APPOINTMENT REQUEST 2 024 [facility] LAB APPOINTMENT 1 11/21/2023 documented in this encounter Care Teams Banana Handler Relationship Specialty Start Date End Date Justen Gale MD [address] [facility] [address] [place] [address] PCP - General 10/09/17 Liu Jerez MD Consulting Physician Gastroenterology 07/28/17 [place] [address] [facility] [address] [place] [address] Consulting Physician Pulmonary Disease 08/03/17 Khris Arthur MD [address] [facility] [address] [place] [address] Medical Oncologist/Architectural Administrative Assistant Medical Oncology 10/23/17 [place] [address] [facility] [address] [place] [address] Surgeon Orthopedic Surgery 10/23/17 John [place] [id number] [facility] [address] [place] [address] Consulting Physician Pain Management 10/23/17 [place] [id number] [facility] [address] [place] [address] Referring Physician General Surgery 01/26/18 [place] [id number] [facility] [address] [place] [address] Consulting Physician Neurology 01/26/18 documented as of this encounter
--- OUTSIDE RECORDS SUMMARY | 2024-04-26 04:17 | XMS_ITS | Encounter Summary ---
Author Organization [facility] Healthcare Address [address] [place] [address] Care Team Providers Care Compression Molding Machine Operator Name Role Phone Liu Jreez MD Unavailable Albert Corbin MD Unavailable [phone] Justen Gale MD Primary Care Provider Khris Arthur MD Unavailable [phone] Ko Melendez MD Unavailable John Paul Moyer MD Unavailable [phone] Annel Rod MD Unavailable Anali MARSHALL MD, Carlos M. Unavailable Encounter Details Date Type Department Care Team (Late st Contact Info) Description 01/05/2024 [facility] Emergency Department [address] [place] [id number] Madison Treadwell, NURIS Social History Tobacco Use Types Packs/Day Years Used Date Smoking Tobacco: Former Smokeless Tobacco: Never Comments:remote tobacco use Alcohol Use Standard Drinks/Week Comments No 0 (1 standard drink = 0.6 oz pur e alcohol) [facility] Utilities Answer Date Recorded In the [...] often do you attend chur ch or gnosticism services? Patient unable to answer 08/15/2023 Do you belong to any clubs o r organizations such as druze groups, unions, fraternal or athletic groups, or [...] slept in a alf (including now)? No 08/15/2023 Personal Safety Answer Date Recorded Have you ever been in or are you currently in a harmful physical or emotional relationship or is someone making you feel afraid or unsafe? Denies 01/04/2024 Comments No Sex and Gender Information Value Date Recorded Sex Assigned at Not on file Legal Sex Female 12:24 AM [employer] Gender Identity Not on file Sexual Orientation Not on file documented as of this encounter Miscellaneous Notes * Telephone Encounter - Madison Treadwell RN - 01/05/2024 9:18 AM CDT ----- Message from LINDA Ahn sent at 01/03/2024 7:16 PM CDT ----- Please call the patient regarding her abnormal result. I discussed patient's case with the pharmacist. She received fosfocmycin, which she should be susceptible to. If pt is not feeling improved, sheshould receive a second dose of 3g fosfomycin or follow up with her pcp. documented in this encounter Plan of Treatment Not on file documented as of this encounter Visit Diagnoses Not on filedocumented in this encounter Care Teams Compression Molding Machine Operator Relationship Specialty Start Date End Date Justen Gale MD [address] [place] [address] PCP - General 10/09/17 Liu Jerez MD Consulting Physician Gastroenterology 07/28/17 [place] [address] [facility] [address] [place] [address] Consulting Physician Pulmonary Disease 08/03/17 Khris Arthur MD [address] [facility] [address] [place] [address] Medical Oncologist/Financial Accountant Medical Oncology 10/23/17 [place] [address] [facility] [address] [place] [address] Surgeon Orthopedic Surgery 10/23/17 [place] [address] [facility] [address] [place] [address] Consulting Physician Pain Management 10/23/17 [place] [address] [facility] [address] [place] [address] Referring Physician General Surgery 01/26/18 [place] [address] [facility] [address] [place] [address] Consulting Physician Neurology 01/26/18 documented as of this encounter
--- OUTSIDE RECORDS SUMMARY | 2024-04-26 04:17 | XMS_ITS | Encounter Summary ---
Author Organization [facility] Healthcare Address [address] [place] [address] Care Team Providers Care Career Agent Name Role Phone Liu Jerez MD Unavailable [phone] Albert Corbin MD Unavailable Justen Gale MD Primary Care Provider [phone] Khris Arthur MD Unavailable [phone] Ko Melendez MD Unavailable [phone] John Paul Moyer MD Unavailable Annel Rod MD Unavailable Anali MARSHALL MD, Carlos M. Unavailable [phone] Reason for Visit * Reason Comments Weakness - Generalized Encounter Details Date Type Department Care Team (Late st Contact Info) Description 12/28/2023 5:55 PM CDT - 12/28/2023 8:36 PM CDT Emergency [facility] Emergency Department [address] [place] [address] Kirit Everett DO [address] [id number] Acute cystitis with hematuria (Primary Dx); Generalized weakness Discharge Disposition: Discharge to home or self care Social History Tobacco Use Types Packs/Day Years Used Date Smoking Tobacco: Former Smokeless Tobacco: Never Comments:remote tobacco use Alcohol Use Standard Drinks/Week Comments No 0 (1 standard drink = 0.6 oz pur e alcohol) [facility] Utilities Answer Date Recorded In the past 12 months has e [employer], gas, oil, or water [employer] threatened to shut off services in your [...] answer 08/15/2023 How often do you attend [facility] or baptism services? Patient unable to answer 08/15/2023 Do you belong to any clubs o r organizations such as uatsdin groups, unions, fraternal or athletic groups, or [...] in a care home (including now)? No 08/15/2023 Personal Safety Answer Date Recorded Have you ever been in or are you currently in a harmful physical or emotional relationship or is someone making you feel afraid or unsafe? Denies 10/31/2023 Comments No Sex and Gender Information Value Date Recorded Sex Assigned at Not on file Legal Sex Female 12:24 AM [employer] Gender Identity Not on file Sexual Orientation Not on file documented as of this encounter Last Filed Vital Signs Vital Sign Reading Time Taken Comments Blood Pressure 153/88 12/28/2023 8:20 PM CDT Pulse 72 12/28/2023 8:20 PM CDT Temperature 36.4 ??C (97.5 ??F) 12/28/2023 1 2:43 PM CDT Respiratory Rate 20 12/28/2023 7:00 PM CDT Oxygen Saturation 99% 12/28/2023 8:20 PM CDT Inhaled Oxygen Concentration - - Weight 119.3 kg (263 lb 0.1 oz) 024 12:43 PM CDT Height 154.9 cm (5' 1 ) 12/28/2023 12:4 3 PM CDT Body Mass Index 49.7 12/28/2023 12:43 PM CDT documented in this encounter Discharge Instructions * Attachments The following attachments cannot be sent through Care Everywhere. * Urinary Tract Infection in Women (Discharge Care) ([place]) documented in this encounter Medications at Time of Discharge albuterol HFA (PROVENTIL HFA,VENTOLIN HFA,PROAIR HFA) 90 mcg/actuation inhaler Inhale 2 puffs every 6 (six) hours as needed for wheezing or shortness of breath 04/19/2021 BD Ultra-Fine Short Pen Needle 31 gauge x 5/16 needle USE 6 TIMES DAILY DIRECTED 06/24/2021 blood glucose diagnostic (Assetauch Ultra Test) strip 4 (four) times a [...] documented in this encounter ED Notes * Kirit Everett DO - 12/28/2023 7:38 PM CDTAssociated Order(s): ECG 12 lead Chief Complaint Patient presents with Weakness - Generalized HPI HPI Karly Marques is a 68 y.o. female w/ PMHx including CVA, PE, DVT, HTN, CHF, DM Type II, LUL, breast cancer, anxiety, depression, and OA presenting to the ED w/ c/o generalized fatigue and intermittent SOB. Pt states that about 1x month ago she was admitted for Covid, strep, and a UTI at the same time. Pt states that for the past couple of weeks she had been feeling okay until recently. Pt reports episodes of lightheadedness and diaphoresis after standing up. Pt also states that she cannot get a breath in. She is on a CPAP machine at home. Pt reports her blood pressure was 189/90 at the pain doctor today, so she decided to come to the ED. Past Medical History: Diagnosis Date Adiposity obesity Breast CA (HCC) Cancer (CMS/HCC) (HCC) breast CHF (congestive heart failure) (CMS/HCC) (HCC) Depression Depression Diabetes (HCC) Disorder of thyroid Thyroid disease DVT (deep venous thrombosis) (CMS/HCC) (HCC) HX OTHER MEDICAL restless leg syndrome HX OTHER MEDICAL RLS Hypertension Hypertension Osteoarthritis osteoarthritis PE (pulmonary thromboembolism) (CMS/HCC) (HCC) Sleep apnea Past Surgical History: Procedure Laterality [...] US SOFT TISSUE ABSCESS DRAIN N/A 10/24/2014 Family History Problem Relation Age of Onset [...] Other Family history of restless leg syndrome; Social History Tobacco Use Smoking status: Former Smokeless tobacco: Never Tobacco comments: remote tobacco use Substance and Sexual Activity Drug use: Never Sexual activity: Defer Alcohol Use: Not At Risk (06/16/2023) Received from [facility], [facility] [employer] AUDIT[facility]C Frequency of Alcohol Consumption: Never Average Number of Drinks: Patient does not drink Frequency of Binge Drinking: Never Review of Systems Review of Systems Constitutional: Positive for diaphoresis and fatigue. Negative for chills and fever. HENT: Negative for ear pain and sore throat. Eyes: Negative for pain and visual disturbance. Respiratory: Positive for shortness of breath. Negative for cough. Cardiovascular: Negative for chest pain and palpitations. Gastrointestinal: Negative for abdominal pain and vomiting. Genitourinary: Negative for dysuria and hematuria. Musculoskeletal: Negative for arthralgias and back pain. Skin: Negative for color change and rash. Neurological: Positive for light-headedness. Negative for seizures and syncope. All other systems reviewed and are negative. Physical Exam ED Triage Vitals Temp Pulse Resp BP SpO2 12/28/23 1243 12/28/23 1245 12/28/23 1245 12/28/23 1245 12/28/23 1245 36.4 ??C (97.5 ??F) 80 20 153/89 98 % Temp src Heart Rate Source Patient Position BP Location FiO2 (%) 12/28/23 1243 12/28/23 1900 -- -- -- Tympanic Monitor Height Height Method Weight Weight Method 12/28/23 1243 12/28/23 1243 12/28/23 1243 12/28/23 1243 1.549 m (5' 1 ) Stated 119.3 kg (263 lb 0.1 oz) Standing scale Physical Exam Vitals and nursing note reviewed. Constitutional: General: She is not in acute distress. Appearance: She is well-developed. She is morbidly obese. HENT: Head: Normocephalic and atraumatic. Eyes: Conjunctiva/sclera: Conjunctivae normal. Cardiovascular: Rate and Rhythm: Normal rate and regular rhythm. Heart sounds: No murmur heard. Pulmonary: Effort: Pulmonary effort is normal. No respiratory distress. Breath sounds: Normal breath sounds. Abdominal: Palpations: Abdomen is soft. Tenderness: There is no abdominal tenderness. Musculoskeletal: General: No swelling. Cervical back: Neck supple. Skin: General: Skin is warm and dry. Capillary Refill: Capillary refill takes less than 2 seconds. Neurological: Mental Status: She is alert. Psychiatric: Mood and Affect: Mood normal. ECG 12 lead Date/Time: 12/28/2023 7:39 PM Performed by: Kirit Everett DO Authorized by: Kirit Everett DO Rate: ECG rate: 75 ECG rate assessment: normal Rhythm: Rhythm: sinus rhythm QRS: QRS axis: Left ST segments: ST segments: Normal T waves: T waves: normal Interpretation: Interpretation: normal Labs Reviewed URINALYSIS AND REFLEX TO MICROSCOPIC AND CULTURE - Abnormal Result Value Color, ur Yellow Clarity, ur Clear Specific gravity, ur 1.021 pH, urine 5.5 Protein, ur ql Negative Glucose, ur ql Negative Ketones, ur Negative Bilirubin, ur Negative Blood, ur Trace (*) Urobilinogen, ur <2.0 Nitrite, ur Positive (*) Leukocyte esterase, ur 2+ (*) UA reflex comment Reflex to microscopic UA will be performed. CBC WITH AUTO DIFFERENTIAL - Abnormal WBC 12.6 (*) Hgb 13.2 Hct 40.9 Plt 272 MPV 9.2 RBC 4.59 MCV 89.1 MCH 28.8 MCHC 32.3 RDW CV 14.6 RDW SD 47.4 NRBC abs 0.00 TROPONIN T HIGH-SENSITIVITY SERIES (BASELINE, 2HR, 4HR, 6HR) - Abnormal Trop T hs 19 (*) DIFFERENTIAL AUTO - Abnormal Neutrophil abs 9.0 (*) Imm gran abs 0.1 Lymphocyte abs 2.5 Monocyte abs 0.9 (*) Eosinophil abs 0.2 Basophil abs 0.0 Neutrophil pct 71.6 Imm gran pct 0.4 Lymphocyte pct 19.5 Monocyte pct 7.0 Eosinophil pct 1.2 Basophil pct 0.3 TROPONIN T HIGH-SENSITIVITY 2-HOUR - Abnormal Trop T hs 19 (*) Trop T hs delta 0 Trop T hs interp Insignificant TROPONIN T HIGH-SENSITIVITY 6-HOUR - Abnormal Trop T hs 17 (*) Trop T hs delta -2 Trop T hs interp Insignificant D-DIMER, QUANTITATIVE - Abnormal D-Dimer 610 (*) URINALYSIS, MICROSCOPIC ONLY - Abnormal WBC, ur 21-50 (*) RBC, ur 3-5 (*) Epithelial cells, squamous, ur 6-10 (*) Bacteria, ur Trace (*) Mucous, ur Present (*) Culture Reflex Comment Reflex to urine culture will be performed. URINE CULTURE COMPREHENSIVE METABOLIC PANEL Sodium 138 Potassium, pl 4.3 Chloride 105 CO2 23 Anion gap 10 BUN 12 Creatinine 0.60 Glucose 178 Calcium 9.0 Bilirubin, total 0.6 Protein, pl 8.1 Albumin 3.9 Alk phos 76 ALT 19 AST 18 PRO B-TYPE NATRIURETIC PEPTIDE NT-proBNP 54 EGFR eGFR >90 POCT GLUCOSE DEVICE Glucose, POC 124 XR Chest 1 View Final Result BP 153/88 Pulse 72 Temp 36.4 ??C (97.5 ??F) (Tympanic) Resp 20 Ht 154.9 cm (5' 1 ) Wt 119.3 kg (263 lb 0.1 oz) SpO2 99% BMI 49.70 kg/m?? [facility] ED Course as of 12/29/23406 Time: 12/27 2008 Comment: Pt has been re-evaluated and informed she has a UTI. Pt given 1x dose of Fosfomycin in theED and she is advised to follow up with PCP. Pt is agreeable with DC. By: Ave Arteaga Final diagnoses: Acute cystitis with hematuria Generalized weakness This note is prepared by Ave Arteaga, acting as a scribe for Kirit Everett MD. I electronically signed this note at 4:07 AM on 12/29/2023. I, Kirit Everett MD, have personally performed the services described in the documentation, reviewed and edited the documentation which was dictated to the scribe in my presence, and it accurately records my words and actions. Kirit Everett DO 12/29/23407 * Radha Olivas RN - 12/28/2023 12:45 PM CDT Pt arrived from home with reports of generalized fatigue, sob on and off uses cpap at home, and some nausea. Pt speaking in full sentences and in no respiratory distress. Pt also reports treated for covid aprx one month ago and concerned its still lingering documented in this encounter Plan of Treatment Not on file documented as of this encounter Procedures Procedure Name Priority Date/Time Associated Diagnosis Comments URINALYSIS AND REFLEX TO MICROSCOPIC AND CULTURE STAT 12/28/2023 7:20 PM CDT URINALYSIS, MICROSCOPIC ONLY STAT 12/28/2023 7:20 PM CDT URINE CULTURE STAT 12/28/2023 7:20 PM CDT TROPONIN T HIGH-SENSITIVITY 6-HOUR Timed 12/28/2023 6:39 PM CDT D-DIMER, QUANTITATIVE STAT 12/28/2023 6:39 PM CDT XR CHEST 1 VIEW ED Urgent/IP Urgent 12/28/2023 6:25 PM CDT POCT GLUCOSE DEVICE Routine 12/28/2023 5 :46 PM CDT TROPONIN T HIGH-SENSITIVITY 2-HOUR Timed 12/28/2023 2:24 PM CDT TROPONIN T HIGH-SENSITIVITY SERIES (BASELINE, 2HR, 4HR, 6HR) STAT 12/28/2023 12:53 PM CDT EGFR STAT 12/28/2023 12:53 PM CDT DIFFERENTIAL AUTO STAT 12/28/2023 12: 53 PM CDT PRO B-TYPE NATRIURETIC PEPTIDE STAT 12/28/2023 12:53 PM CDT CBC WITH AUTO DIFFERENTIAL STAT 12/28/2023 12:53 PM CDT COMPREHENSIVE METABOLIC PANEL STAT 12/28/2023 12:53 PM CDT ECG 12-LEAD STAT 12/28/2023 12:49 PM CDT documented in this encounter Results * (ABNORMAL) Urine culture Urine (12/28/2023 7:20 PM CDT) Report Final Report: Greater than or equal to 100,000 colonies/mL of Escherichia coli Plus growth of clinically insignificant bacterial yesenia. (.) Comment:Testing performed by : [facility], [address], [place]., [address] Organism ESCHERICHIA COLI MARY JANE PHAM Organism PLUS GROWTH OF CLINICALLY INSIGNIFICANT YESENIA. MARY JANE PHAM Urine 12/28/2023 7:20 PM CDT 12/29/2023 1:25 AM CDT Narrative MARY JANE PHAM - 12/30/2023 3:23 PM CDT Urine culture reflexed based upon urinalysis results. Testing performed by [facility] Microbiology Laboratory ([phone]) Organism Antibiotic Method Susceptibility Escherichia coli Ampicillin [...] INTERPRETATION Susceptible Escherichia coli Cefdinir INTERPRETATION Susceptible us Kirit Everett DO LAB MICROBIOLOGY - GENERAL ORD ERABLES Final Result MARY JANE [address] [facility] Department [place] [address] * (ABNORMAL) Urinalysis, microscopic only (12/28/2023 7:20 PM CDT) WBC, ur 21-50(A) 0 - 5 /HPF Comment:Testing performed by : [facility], [address] [place] [address]., [address] RBC, ur 3-5(A) 0 - 2 /HPF MARY JANE Comment:Testing performed by : [address] [address] Epithelial cells, squamous, ur 6-10(A) 0 - 5 /HPF MARY JANE Comment:Testing performed by : [address] [address] Bacteria, ur Trace(A) MARY JANE Comment:Testing performed by : [address] [address] Mucous, ur Present(A) MARY JANE PHAM Comment:Testing performed by : [address] [address] Culture Reflex Comment Reflex to urine culture will be performed. MARY JANE Comment:Testing performed by : [address] [address] Urine 12/28/2023 7:20 PM CDT 12/28/2023 7:25 PM CDT Kirit Everett DO LAB URINE ORDERABLES Final Res ult MARY JANE [address] [facility] Department of Laboratories [place], [place] [id number] * (ABNORMAL) Urinalysis reflex to microscopic and culture Urine (12/28/2023 7:20 PM CDT) Color, ur Yellow Yellow Comment:Testing performed by : [address] [address] Clarity, ur Clear Clear MARY JANE Comment:Testing performed by : [address] [address] Specific gravity, ur 1.021 1.003 - 1.030 MARY JANE Comment:Testing performed by : [address] [address] pH, urine 5.5 MARY JANE Comment: Interpretive Data ? Urine pH is affected by diet, medications, systemic acid-base disturbances, and renal tubular function. ??pH may affect urinary stone formation. ??For example, urine pH below 6.0 may help reduce the tendency for calcium phosphate stones and pH greater than 6.0 may reduce the tendency for uric acid stone formation. Source: [facility] [employer] Current Interpretive Data was last revised on 2017 Testing performed by: [address] [address] Protein, ur ql Negative Negative MARY JANE Comment:Testing performed by : [address] [address] Glucose, ur ql Negative Negative MARY JANE Comment:Testing performed by : [address] [address] Ketones, ur Negative Negative MARY JANE Comment:Testing performed by : [facility], [address] [place] [address], [place]., [address] Bilirubin, ur Negative Negative MARY JANE Comment:Testing performed by : [facility], [address] [place] [address], [place]., [address] Blood, ur Trace(A) Negative MARY JANE Comment:Testing performed by : [address], [place]., [address] Urobilinogen, ur <2.0 <2.0 mg/dL MARY JANE Comment:Testing performed by : [facility], [address] [place] [address], [place]., [address] Nitrite, ur Positive(A) Negative MARY JANE Comment:Testing performed by : [address], [place]., [address] Leukocyte esterase, ur 2+(A) Negative MARY JANE Comment:Testing performed by : [address], [place]., [address] UA reflex comment Reflex to microscopic UA will be performed. MARY JANE Comment:Testing performed by : [facility], [address] [place] [address], [place]., [address] Urine 12/28/2023 7:20 PM CDT 12/28/2023 7:25 PM CDT us Kirit Everett DO LAB MICROBIOLOGY - GENERAL ORD ERABLES Final Result MARY JANE [address] [facility] Department [place] [address] * (ABNORMAL) D-dimer, quantitative (12/28/2023 6:39 PM CDT) D-Dimer 610(H) <=499 ng/mL FEU Comment: Interpretive data FDA approved the D-dimer, in conjunction with a low or moderate pretest probability score, to exclude venous thromboembolic events (VTE) (PE and DVT) in outpatients when the D-dimer result is < 500 ng/ml FEU. ?? Evidence supports using an age-adjusted D-dimer cut-off for outpatients older than 50 (age x 10) to improve specificity without sacrificing sensitivity. Example: age 68, VTE cut-off 680 ng/ml FEU. References; Schouten HT et al. Brit Med J. 2013;346:f2492. Pooja et al. Annals Int Med. 2015;163:701-11. Current interpretive data was last revised on 2019. Testing performed by: [address] [address] Blood 12/28/2023 6:39 PM CDT 12/28/2023 6:45 PM CDT us Kirit Everett DO LAB BLOOD ORDERABLES Final Res ult Performing Organization Address City/[facility]/ZIP Co de Phone Number [facility] [address] [facility] [place] [address] * (ABNORMAL) Troponin T high-sensitivity 6-hour (12/28/2023 6:39 PM CDT) Trop T hs 17(H) <=14 ng/L Comment: Interpretive Data For further hscTnT resources including the diagnostic algorithm and an aid in interpretation, copy and paste this link: https://nrl.testcatalog.org/show/hsTrop Current Interpretive Data last revised 2020. Testing performed by: [address] [address] Trop T hs delta -2 ng/L MARY JANE Comment:Testing performed by : [address] [address] Trop T hs interp Insignificant MARY JANE Comment:Testing performed by : [address] [address] Blood 12/28/2023 6:39 PM CDT 12/28/2023 6:45 PM CDT us Felicitas Escudero MD LAB BLOOD ORDERABLES Final Result Performing Organization Address City/[facility]/ZIP Co de Phone Number [facility] [address] [facility] [place] [address] * XR Chest 1 View (12/28/2023 6:25 PM CDT) Anatomical Region Laterality Modality Body, Chest N/A Computed Radiogr aphy 12/28/2023 6:38 PM CDT Narrative 12/28/2023 6:39 PM CDT EXAM DESCRIPTION: XR CHEST 1 VIEW REASON FOR STUDY: general weakness ?? Pt arrived from home with reports of generalized fatigue, sob on and off uses cpap at home, and some nausea. Pt speaking in full sentences and in no respiratory distress. Pt also reports treated for covid aprx one month ago and concerned its still ?? lingering ? TECHNIQUE: ??Portable upright AP view of the chest. COMPARISON: 10/31/2023 FINDINGS: LUNGS AND PLEURA: ??No focal opacity, large effusion, or pneumothorax identified. HEART/MEDIASTINUM: ??Trachea midline. ?? Cardiac silhouette normal in size. Mediastinal contours appear normal. BONES: ??Mild shoulder arthritis. ?? CHEST WALL: ??Unremarkable. ?? UPPER ABDOMEN: ??Unremarkable. ?? IMPRESSION: No acute abnormality identified within limits of low inspiratory volume portable technique. ??Lung bases obscured. ?? THIS IS AN ELECTRONICALLY VERIFIED FINAL REPORT 12/28/2023 6:39 PM - Electronically signed by ??Juve Gallegos M.D. AR: VALERY D: ??12/28/2023 6:39 PM T: ??12/28/2023 6:39 PM Report ID: [id number] Reading Location: ??[id number] Procedure Note Juve Gallegos MD - 12/28/2023 EXAM DESCRIPTION: XR CHEST 1 VIEW REASON FOR STUDY: general weakness Pt arrived from home with reports of generalized fatigue, sob on and offuses cpap at home, and some nausea. Pt speaking in full sentences and in no respiratory distress. Pt also reports treated for covid aprx one month agoand concerned its still lingering TECHNIQUE: Portable upright AP view of the chest. COMPARISON: 10/31/2023 FINDINGS: LUNGS AND PLEURA: No focal opacity, large effusion, orpneumothorax identified. HEART/MEDIASTINUM: Trachea midline. Cardiac silhouette normal in size. Mediastinal contours appear normal. BONES: Mild shoulder arthritis. CHEST WALL: Unremarkable. UPPER ABDOMEN: Unremarkable. IMPRESSION: No acute abnormality identified within limits of lowinspiratory volume portable technique. Lung bases obscured. THIS IS AN ELECTRONICALLY VERIFIED FINAL REPORT 12/28/2023 6:39 PM - Electronically signed by Juve Gallegos M.D. AR: VALERY Report ID: [id number] Reading Location: [id number] us Kirit Karlos DO IMG XR PROCEDURES Final Result * POCT glucose (12/28/2023 5:46 PM CDT) [facility] Glucose, POC 124 70 - 199 mg/dL Comment:Testing performed by : [address] [address] Blood 12/28/2023 5:46 PM CDT 12/28/2023 5:46 PM CDT Notinfile Unknown LAB POCT ORDERABLES - DEVICE F inal Result MARY JANE [address] [facility] Department [place] [address] * (ABNORMAL) Troponin T high-sensitivity 2-hour (12/28/2023 2:24 PM CDT) [facility] Trop T hs 19(H) <=14 ng/L Comment: Interpretive Data For further hscTnT resources including the diagnostic algorithm and an aid in interpretation, copy and paste this link: https://nrl.testcatalog.org/show/hsTrop Current Interpretive Data last revised 2020. Testing performed by: [address] [address] Trop T hs delta 0 ng/L MARY JANE PHAM Comment:Testing performed by : [address] [address] Trop T hs interp Insignificant MARY JANE PHAM Comment:Testing performed by : [address] [place] [address] Blood 12/28/2023 2:24 PM CDT 12/28/2023 2:32 PM CDT Felicitas Ecsudero MD LAB BLOOD ORDERABLES Final Result Performing Organization Address City/State/[facility] Co ma Phone Number [facility] [address] [facility] Department [place] [address] * eGFR (12/28/2023 12:53 PM CDT) eGFR >90 >=60 mL/min/1. 73 [...] was last reviewed 2021. Testing performed by: [facility], [address] [place] [address]., [address] Blood 12/28/2023 12:5 3 PM CDT 12/28/2023 12:57 PM CDT us Kirit Everett DO LAB BLOOD ORDERABLES Final Res ult MARY JANE [address] [facility] Department [place] [address] * (ABNORMAL) Differential, auto (12/28/2023 12:53 PM CDT) Neutrophil abs 9.0(H) 1.5 - 6.5 K/cumm Comment:Testing performed by : [address] [address] Imm gran abs 0.1 0.0 - 0.1 K/cumm MARY JANE Comment:Testing performed by : [address] [address] Lymphocyte abs 2.5 0.8 - 3.3 K/cumm MARY JANE Comment:Testing performed by : [address] [address] Monocyte abs 0.9(H) 0.2 - 0.8 K/cumm MARY JANE Comment:Testing performed by : [address] [address] Eosinophil abs 0.2 0.0 - 0.5 K/cumm MARY JANE Comment:Testing performed by : [address] [address] Basophil abs 0.0 0.0 - 0.1 K/cumm MARY JANE Comment:Testing performed by : [address] [address] Neutrophil pct 71.6 % MARY JANE Comment: Interpretive Data Percent cell count reference ranges are not reported, since discordance with absolute values may lead to misinterpretation of CBC data. Current Interpretive Data was last revised on 2017. Testing performed by: [address] [address] Imm gran pct 0.4 % MARY JANE Comment: Interpretive Data Percent cell count reference ranges are not reported, since discordance with absolute values may lead to misinterpretation of CBC data. Current Interpretive Data was last revised on 2017. Testing performed by: [address] [address] Lymphocyte pct 19.5 % [facility] Comment: Interpretive Data Percent cell count reference ranges are not reported, since discordance with absolute values may lead to misinterpretation of CBC data. Current Interpretive Data was last revised on 2017. Testing performed by: [address] [address] Monocyte pct 7.0 % [facility] Comment: Interpretive Data Percent cell count reference ranges are not reported, since discordance with absolute values may lead to misinterpretation of CBC data. Current Interpretive Data was last revised on 2017. Testing performed by: [address] [address] Eosinophil pct 1.2 % [facility] Comment: Interpretive Data Percent cell count reference ranges are not reported, since discordance with absolute values may lead to misinterpretation of CBC data. Current Interpretive Data was last revised on 2017. Testing performed by: [address] [address] Basophil pct 0.3 % [facility] Comment: Interpretive Data Percent cell count reference ranges are not reported, since discordance with absolute values may lead to misinterpretation of CBC data. Current Interpretive Data was last revised on 2017. Testing performed by: [address] [address] Blood 12/28/2023 12:5 3 PM CDT 12/28/2023 12:57 PM CDT us Kirit Everett DO LAB BLOOD ORDERABLES Final Res ult MARY JANE [address] [facility] Department [place] [address] * (ABNORMAL) Troponin T high-sensitivity series (baseline, 2hr, 4hr, 6hr) (12/28/2023 12:53 PM CDT) Trop T hs 19(H) <=14 ng/L Comment: Interpretive Data For further hscTnT resources including the diagnostic algorithm and an aid in interpretation, copy and paste this link: https://nrl.testcatalog.org/show/hsTrop Current Interpretive Data last revised 2020. Testing performed by: [facility], [address] [place] [address], [place]., [address] Blood 12/28/2023 12:5 3 PM CDT 12/28/2023 12:57 PM CDT us Kirit Everett DO LAB BLOOD ORDERABLES Final Res ult MARY JANE [address] [facility] Department [place] [address] * Pro B-type natriuretic peptide (12/28/2023 12:53 PM CDT) NT-proBNP 54 <=300 pg/mL Comment: Interpretive Comments: A. Dyspnea in Acute Care Setting All Ages: ?< 300 pg/ml, acute heart failure unlikely. < 50 yrs: ?300 - 450 pg/ml, further investigation warranted. ? > 450 pg/ml, acute heart failure likely. 50 - 74 yrs: ? 300 - 900 pg/ml, further investigation warranted. ? > 900 pg/ml, acute heart failure likely . > or = 75 yrs: ? 450 - 1800 pg/ml, further investigation warranted. ? > 1800 pg/ml, acute heart failure likely. B. Non-acute Setting < 75 yrs ? < 125 pg/ml, rules out heart failure. ? > or = 125 pg/ml, further investigation warranted. > or = 75 yrs ?< 450 pg/ml, rules out heart failure. ? > or = 450 pg/ml, further investigation warranted. - Knowledge of each individual patient's NT-proBNP range may be more useful than using similar cut-points for every patient. Please note that marked elevations in NT-proBNP levels may be observed in state other than Left Ventricular Congestive Failure, including: acute coronary syndromes, right heart strain/failure (including pulmonary embolism and cor pulmonale), critical illness, renal failure, as well as advanced age. - References: 1. Gigi LIANG et.al. Eur Heart J. 2006:27:330-337. 2. Tracy GRANT, Duyen BEE. J. AM Wang Cardiol: Cardiovasc Imag. 2009;2: 216- 225. Interpretive Data Last Revised Date: 2017. Testing performed by: [address] [address] Blood 12/28/2023 12:5 3 PM CDT 12/28/2023 12:57 PM CDT us Kirit Everett DO LAB BLOOD ORDERABLES Final Res ult MARY JANE [address] [facility] Department of Laboratories [place], [place] [id number] * Comprehensive metabolic panel (12/28/2023 12:53 PM CDT) Sodium 138 135 - 145 mmol/L Comment:Testing performed by : [address] [address] Potassium, pl 4.3 3.3 - 4.9 mmol/L MARY JANE Comment:Testing performed by : [address] [address] Chloride 105 97 - 110 mmol/L MARY JANE Comment:Testing performed by : [address] [address] CO2 23 22 - 32 mmol/L MARY JANE PHAM Comment:Testing performed by : [address] [address] Anion gap 10 2 - 15 mmol/L MARY JANE PHAM Comment:Testing performed by : [address] [address] BUN 12 6 - 25 mg/dL MARY JANE PHAM Comment:Testing performed by : [address] [address] Creatinine 0.60 0.60 - 1.10 mg/dL MARY JANE Comment:Testing performed by : [address] [address] Glucose 178 70 - 199 mg/dL MARY JANE Comment: [...] was last revised 2022. Testing performed by: [address] [address] Calcium 9.0 8.5 - 10.3 mg/dL MARY JANE Comment:Testing performed by : [address] [address] Bilirubin, total 0.6 0.1 - 1.2 mg/dL MARY JANE Comment:Testing performed by : [address] [address] Protein, pl 8.1 6.5 - 8.5 g/dL MARY JANE Comment:Testing performed by : [address] [address] Albumin 3.9 3.5 - 5.0 g/dL MARY JANE Comment:Testing performed by : [address] [address] Alk phos 76 40 - 130 Units/L MARY JANE Comment:Testing performed by : [address] [address] ALT 19 7 - 45 Units/L MARY JANE Comment:Testing performed by : [address], [address] AST 18 10 - 45 Units/L MARY JANE Comment:Testing performed by : [address] [address] Blood 12/28/2023 12:5 3 PM CDT 12/28/2023 12:57 PM CDT Kirit Everett DO LAB BLOOD ORDERABLES Final Res ult [facility] [address] [facility] Department [place] [address] * (ABNORMAL) CBC with auto differential (12/28/2023 12:53 PM CDT) WBC 12.6(H) 3.8 - 9.9 K/cumm Comment:Testing performed by : [address] [address] Hgb 13.2 11.9 - 15.5 g/dL MARY JANE Comment:Testing performed by : [address] [address] Hct 40.9 35.6 - 45.5 % MARY JANE Comment:Testing performed by : [address] [address] Plt 272 150 - 400 K/cumm MARY JANE Comment:Testing performed by : [address] [address] MPV 9.2 9.1 - 12.3 fL MARY JANE Comment:Testing performed by : [address] [address] RBC 4.59 3.90 - 5.20 M/cumm MARY JANE Comment:Testing performed by : [address] [address] MCV 89.1 81.3 - 96.4 fL MARY JANE Comment:Testing performed by : [address] [address] MCH 28.8 27.1 - 33.3 pg MARY JANE Comment:Testing performed by : [address] [address] MCHC 32.3 32.3 - 35.7 g/dL MARY JANE Comment:Testing performed by : [address] [place] [address] RDW CV 14.6 11.1 - 14.9 % MARY JANE PHAM Comment:Testing performed by : [address] [address] RDW SD 47.4 35.7 - 48.1 fL MARY JANE PAHM Comment:Testing performed by : [address] [address] NRBC abs 0.00 0.00 - 0.01 K/cumm MARY JANE PHAM Comment:Testing performed by : [address] [address] Blood 12/28/2023 12:5 3 PM CDT 12/28/2023 12:57 PM CDT Kirit Everett DO LAB BLOOD ORDERABLES Final Res ult MARY JANE [address] [facility] Department [place] [address] * ECG 12 lead (12/28/2023 12:49 PM CDT) Ventricular Rate EKG/Min 75 BPM [facility] Atrial Rate 75 BPM [facility] VT-Interval (MSEC) 126 ms [facility] QRS-Interval (MSEC) 86 ms [facility] QT-Interval (MSEC) 386 ms [facility] QTc 431 ms [facility] P [place] 37 degrees [facility] R [place] -1 degrees [facility] T [place] 38 degrees [facility] Diagnosis Normal sinus rhythm Normal ECG When compared with ECG of 31-OCT-2023 16:17, No significant change was found Confirmed by DELILAH MCNAIR M.D. ([id number]) on 12/30/2023 9:58:48 PM [facility] 12/28/2023 12:4 9 PM CDT 12/30/2023 9:58 PM CDT [employer] Kirit Everett DO ECG ORDERABLES Final Result Performing Organization Address City/[facility]/ZIP Co de Phone Number [facility] [place] documented in this encounter Visit Diagnoses Diagnosis Acute cystitis with hematuria- Primary Generalized weakness documented in this encounter Administered Medications Inactive Administered Medications - up to 3 most recent administrations Medication Order MAR Action Action Date Dose Rate Site fosfomycin (MONUROL) packet 3 g 3 g, oral, Once, On Valeri 12/28/23 at 2030, For 1 dose, Pour contents of packet into 3-4 oz of cool water, stir to dissolve and administer immediately., Indications: Urinary Tract/Genitourinary InfectionIndications:Urinary Tract/Genitourinary Infection Given 12/28/2023 8:21 PM CDT 3 g documented in this encounter Discontinued Medications Medication Sig Discontinue Reason Start Date End Da te HYDROcodone-acetaminophe n (NORCO) 5-325 mg per tabletIndications:Pain Take 1 tablet by mouth every 6 (six) hours as needed for pain for up to 10 doses Alternate therapy 10/31/2023 12/28/2023 insulin lispro (HumaLOG) 100 unit/mL injection Inject 12 Units under the skin 3 (three) times a day before meals. Alternate therapy 01/26/2018 12/28/2023 methocarbamoL (ROBAXIN) 500 mg tablet Take 1 tablet (500 mg total) by mouth 2 (two) times a day as needed for muscle spasms Alternate therapy 12/28/2023 documented as of this encounter Historical Medications * This list may reflect changes made after this encounter. insulin lispro (HumaLOG, ADMELOG) 100 unit/mL vial for injection Inject 28 Units under the skin 3 (three) times a day before meals 28 units plus sliding scale before meals HYDROcodone-aceta minophen (NORCO) 10-325 mg per tablet Take 1 tablet by mouth every 6 (six) hours as needed for pain 12/28/2023 added in this encounter Active and Recently Administered Medications Times are shown in CDT. Scheduled Medication Order 12/26/2023 12/27/2023 12/28/2023 fosfomycin (MONUROL) packet 3 g (COMPLETED) 3 g, oral, Once, On Valeri 12/28/23 at 2030, For 1 dose, Pour contents of packet into 3-4 oz of cool water, stir to dissolve and administer immediately., Indications: Urinary Tract/Genitourinary Infection 2020 (Given - Provid er: Jimmie Wheat RN) documented in this encounter Care Teams Career Agent Relationship Specialty Start Date End Date Justen Gale MD 2 [facility] [address] [place] [address] PCP - General 10/09/17 Liu Jerez MD Consulting Physician Gastroenterology 07/28/17 [place] [address] [facility] [address] [place] [address] Consulting Physician Pulmonary Disease 08/03/17 Khris Arthur MD 49[address] [facility] [address] [place] [address] Medical Oncologist/Marine Cargo Inspector Medical Oncology 10/23/17 [place] [address] [facility] [address] [place] [address] Surgeon Orthopedic Surgery 10/23/17 [place] [address] [facility] [address] [place] [address] Consulting Physician Pain Management 10/23/17 [place] [address] [facility] [address] [place] [address] Referring Physician General Surgery 01/26/18 [place] [address] [facility] [address] [place] [address] Consulting Physician Neurology 01/26/18 documented as of this encounter
--- OUTSIDE RECORDS SUMMARY | 2024-04-26 04:17 | XMS_ITS | Encounter Summary ---
Author Organization [facility] Address [address] [place] [address] Phone Care Team Providers Care Boiler Testing Technician Name Role Phone Liu Jerez MD Unavailable Albert Corbin MD Unavailable Justen Gale MD Primary Care Provider Khris Arthur MD Unavailable [phone] Ko Melendez MD Unavailable [phone] John Paul Moyer MD Unavailable Annel Rod MD Unavailable Anali MARSHALL MD, Carlos M. Unavailable [phone] Encounter Details Date Type Department Care Team (Late st Contact Info) Description 11/21/2023 2:00 PM CDT Lab [facility] Oncology [address] [facility] 7th [place] [address] [place] [address] Social History Tobacco Use Types Packs/Day Years Used Date Smoking Tobacco: Former Smokeless Tobacco: Never Comments:remote tobacco use Alcohol Use Standard Drinks/Week Comments No 0 (1 standard drink = 0.6 oz pur e alcohol) [facility] Utilities Answer Date Recorded In [...] 08/15/2023 How often do you attend chur or voodoo services? Patient unable to answer 08/15/2023 Do you belong to any clubs o r organizations such as latter day groups, unions, fraternal or athletic groups, or [...] [place] [facility] (including [facility])? No 08/15/2023 Personal Safety Answer Date Recorded Have you ever been in or are you currently in a harmful physical or emotional relationship or is someone making you feel afraid or unsafe? 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 Gender Identity Not on file Sexual Orientation Not on file documented as of this encounter Plan of Treatment Not on file documented as of this encounter Visit Diagnoses Not on filedocumented in this encounter Care Teams Boiler Testing Technician Relationship Specialty Start Date End Date Justen Gale MD 2 [facility] [address] [place] [address] PCP - General 10/09/17 Liu Jerez MD Consulting Physician Gastroenterology 07/28/17 [place] [address] [facility] [address] [place] [address] Consulting Physician Pulmonary Disease 08/03/17 Khris Arthur MD [address] [place] [address] [address] [place], [place] [id number] Medical Oncologist/Telecommunications Linesworker Medical Oncology 10/23/17 [place] [address] [facility] [address] [place] [address] Surgeon Orthopedic Surgery 10/23/17 [place] [address] [facility] [address] [place] [address] Consulting Physician Pain Management 10/23/17 [place] [address] [facility] [address] [place] [address] Referring Physician General Surgery 01/26/18 [place] [address] [facility] [address] [place] [address] Consulting Physician Neurology 01/26/18 documented as of this encounter
--- OUTSIDE RECORDS SUMMARY | 2024-04-26 04:17 | XMS_ITS | Encounter Summary ---
Author Organization [facility] Address [address] [place] [address] Phone Care Team Providers Care Oxygen Therapy Technician Name Role Phone Liu Jerez MD Unavailable Albert Corbin MD Unavailable [phone] Justen Gale MD Primary Care Provider [phone] Khris Arthur MD Unavailable [phone] Ko Melendez MD Unavailable [phone] John Paul Moyer MD Unavailable [phone] Annel Rod MD Unavailable Anali MARSHALL MD, Carlos M. Unavailable Encounter Details Date Type Department Care Team (Late st Contact Info) Description 12/27/2023 Orders Only [facility] Oncology [address] [place] [address] Radha Mcgrath RN Chronic anticoagulation; History of pulmonary embolism; History of DVT (deep vein thrombosis); Other pulmonary embolism without acute cor pulmonale, unspecified chronicity (HCC); Malignant neoplasm of female breast, unspecified estrogen receptor status, unspecified laterality, unspecified site of breast (HCC); Malignant neoplasm of overlapping sites of left female breast, unspecified estrogen receptor status (HCC); Malignant neoplasm of upper-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, unspecified estrogen receptor status (HCC) Social History Tobacco Use Types Packs/Day Years Used Date Smoking Tobacco: Former Smokeless Tobacco: Never Comments:remote tobacco use Alcohol Use Standard Drinks/Week Comments No 0 (1 standard drink = 0.6 oz pur e alcohol) [facility] Utilities Answer Date Recorded In the past 12 months has [employer] electric, gas, oil, or water company threatened [...] How often do you attend chur or church services? Patient unable to answer 08/15/2023 Do you belong to any clubs o r organizations such as worship groups, unions, fraternal or athletic groups, or [...] slept in a intermediate (including now)? No 08/15/2023 Personal Safety Answer Date Recorded Have you ever been in or are you currently in a harmful physical or emotional relationship or is someone making you feel afraid or unsafe? 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 Gender Identity Not on file Sexual Orientation Not on file documented as of this encounter Ordered Prescriptions Prescription Sig Dispense Quantity Refills Last Filled Start Date End Date rivaroxaban (Xarelto) 20 mg tabletIndications:C hronic anticoagulation,His tory of pulmonary embolism,History of DVT (deep vein [...] by mouth daily 30 tablet 11 12/27/2023 documented in this encounter Plan of Treatment Not on file documented as of this encounter Visit Diagnoses Diagnosis Chronic anticoagulation Encounter for long-term (current) use of anticoagulants History of pulmonary embolism Personal history of venous thrombosis and embolism History of DVT (deep vein thrombosis) Other pulmonary embolism without acute cor pulmonale, unspecified chronicity (HCC) Malignant neoplasm of female breast, unspecified estrogen receptor status, unspecified laterality, unspecified site of breast (HCC) Malignant neoplasm of overlapping sites of left female breast, unspecified estrogen receptor status (HCC) Malignant neoplasm of upper-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, unspecified estrogen receptor status (HCC) documented in this encounter Discontinued Medications Medication Sig Discontinue Reason Start Date End Da te rivaroxaban (Xarelto) 20 mg tabletIndications:Chronic anticoagulation,History of pulmonary embolism,History of DVT (deep vein [...] tablet (20 mg total) by mouth daily Reorder 05/23/2023 12/27/2023 documented as of this encounter Care Teams Oxygen Therapy Technician Relationship Specialty Start Date End Date Justen Gale MD [address] [address] PCP - General 10/09/17 Liu Jerez MD Consulting Physician Gastroenterology 07/28/17 [place] [address] [id number] [place] [address] Consulting Physician Pulmonary Disease 08/03/17 [place] [address] [place] [address] [address] [place] [address] Medical Oncologist/Director Of Midwifery/Staff Midwife Medical Oncology 10/23/17 [place] [address] [facility] [address] [place] [address] Surgeon Orthopedic Surgery 10/23/17 [place] [address] [address] Consulting Physician Pain Management 10/23/17 [place] [address] [address] Referring Physician General Surgery 01/26/18 [place] [address] [facility] [address] [place] [address] Consulting Physician Neurology 01/26/18 documented as of this encounter
--- OUTSIDE RECORDS SUMMARY | 2024-04-26 04:17 | XMS_ITS | Encounter Summary ---
Author Organization [facility] Address [address] [place] [address] Care Team Providers Care Orthopedic Radiologic Technologist Name Role Phone Liu Jerez MD Unavailable [phone] Albert Corbin MD Unavailable Justen Gale MD Primary Care Provider Khris Arthur MD Unavailable [phone] Ko Melendez MD Unavailable John Paul Moyer MD Unavailable Annel Rod MD Unavailable Anali MARSHALL MD, Carlos M. Unavailable Encounter Details Date Type Department Care Team (Late st Contact Info) Description 01/04/2024 [facility] Emergency Department [address] [place] [address] Madison Treadwell, NURIS Social History Tobacco Use Types Packs/Day Years Used Date Smoking Tobacco: Former Smokeless Tobacco: Never Comments:remote tobacco use Alcohol Use Standard Drinks/Week Comments No 0 (1 standard drink = 0.6 oz pur e alcohol) [facility] Utilities Answer Date Recorded In the [...] often do you attend chur ch or shinto services? Patient unable to answer 08/15/2023 Do you belong to any clubs o r organizations such as jainism groups, unions, fraternal or athletic groups, or [...] slept in a penitentiary (including now)? No 08/15/2023 Personal Safety Answer Date Recorded Have you ever been in or are you currently in a harmful physical or emotional relationship or is someone making you feel afraid or unsafe? 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 Gender Identity Not on file Sexual Orientation Not on file documented as of this encounter Miscellaneous Notes * Telephone Encounter - Madison Treadwell RN - 01/04/2024 10:34 AM CDT ----- Message from LINDA Ahn [...] Infection Onset Date Last Indicated Resolved Time COVID: Suspected 01/04/2024 01/04/2024 01/04/2024 10:30 PM CDT documented as of this encounter Care Teams Orthopedic Radiologic Technologist Relationship Specialty Start Date End Date Justen Gale MD [address] [place] [address] PCP - General 10/09/17 Liu Jerez MD Consulting Physician Gastroenterology 07/28/17 [place] [address] [facility] [address] [place] [address] Consulting Physician Pulmonary Disease 08/03/17 Khris Arthur MD 4921 [facility] [address] [place] [address] Medical Oncologist/Cigar Head Stringer Medical Oncology 10/23/17 [place] [address] [facility] [address] [place] [address] Surgeon Orthopedic Surgery 10/23/17 [place] [address] [facility] [address] [place] [address] Consulting Physician Pain Management 10/23/17 [place] [address] [facility] [address] [place] [address] Referring Physician General Surgery 01/26/18 [place] [address] [facility] [address] [place] [address] Consulting Physician Neurology 01/26/18 documented as of this encounter
--- OUTSIDE RECORDS SUMMARY | 2024-04-26 04:17 | XMS_ITS | Clinical Summary ---
Author Organization [facility] Address [address] [place] [id number] Care Team Providers Care Shirring Tender Name Role Phone Liu Jerez MD Unavailable Ablert Corbin MD Unavailable [phone] Justen Gale MD Primary Care Provider Khris Arthur MD Unavailable [phone] Ko Melendez MD Unavailable John Paul Moyer MD Unavailable Annel Rod MD Unavailable Anali MARSHALL MD, Carlos M. Unavailable [phone] Allergies Active Allergy Reactions Criticality Noted Date [...] Taken at 2100 Active blood glucose diagnostic (Engana Ptyuch Ultra Test) strip 4 (four) times a [...] 09/12/2021 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) 2021 group home (current) use 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 inhibitors 10/17/2019 Thyroid [...] complication, without long-term current use of insulin ([facility]) 10/23/2017 Assessment & Plan (10/23/2017 2:06 AM [...] Cancer of overlapping sites of left female yajaira t 10/13/2017 Chest pressure 08/01/2017 Positive blood culture 08/01/2017 Hyponatremia 08/01/2017 Diet-controlled diabetes mellitus (CMS/HCC) 07/23 LUL (obstructive sleep apnea) 08/01/2017 History of DVT (deep vein thrombosis) 08/01/2017 History of pulmonary embolism 08/01/2017 Generalized weakness 07/27/2017 Dyspnea 07/27/2017 Unintentional weight loss 07/27/2017 Acute cystitis without hematuria 07/27/2017 Nausea and vomiting 07/26/2017 Overview (07/28/2017): Added automatically from request for surgery [id number] Pulmonary embolism 08/09/2016 Assessment & Plan (10/23/2017 [...] Dyslipidemia History of breast cancer Intractable pain Encounters Date Type Department Care Team Description 04/22/[address] [facility] [address] [facility] Floor [address] [place] [address] Radha Mcgrath RN 04/19/2024 Telephone [facility] [address] [place] [address] Lalita Braun, NURIS Scheduling Appointments 02/15/2024 2:22 AM CDT - 02/15/2024 5:58 AM CDT Emergency [facility] Emergency Department [address] [place] [id number] Jeremías Smith MD Myalgia (Primary Dx) Discharge Disposition: Discharge to home or self care from Last 3 Months Immunizations Name Administration Dates Next Due Influenza, Quadrivalent, Spl it, Intramuscular 02/06/2017,02/11/2015 Influenza, Quadrivalent, Spl it, Preservative Free, Intramuscular 01/03/2022,05/04/2021,01/18/2020,02/25,01/24/2018,02/14/2017 Influenza, Trivalent, IM (MDV) ,01/23/2016,03/07/2014,05/07 Influenza, Unspecified 01/23/2016,03/07/2014, Tdap 02/23/2016 Surgical History Surgery Date Site/Laterality Comments OTHER SURGICAL HISTORY 04/24/2012 - 04/23/2013 : Right Total Knee Replacement CHOLECYSTECTOMY Cholecystectomy INGUINAL HERNIA REPAIR Hernia repair, inguinal CHOLECYSTECTOMY gallbladder surgery OOPHORECTOMY ovary removed HERNIA REPAIR Hernia repair KNEE ARTHROPLASTY Knee replacement KNEE ARTHROPLASTY R knee replacement CHOLECYSTECTOMY gallbladder removal OTHER SURGICAL HISTORY R ovary removed SECTION section ABSCESS CATHETER INJECTION 11/26/2014 N/A ABSCESS CATHETER INJECTION 11/26/2014 N/A ABSCESS CATHETER INJECTION 11/14/2014 N/A US SOFT TISSUE ABSCESS DRAIN 12/11/2014 N/A ABSCESS TUBE EXCHANGE 11/05/2014 N/A ABSCESS CATHETER INJECTION 11/05/2014 N/A US SOFT TISSUE ABSCESS DRAIN 10/24/2014 N/A IR FINE NEEDLE ASPIRATION W IMAGE GUIDANCE 07/25/2014 N/A BREAST SURGERY MASTECTOMY JOINT REPLACEMENT PORT PLACEMENT CHEST >5 YEARS 11/05/2021 N/A Medical History Medical History Date Comments Hypertension Hypertension Adiposity obesity Osteoarthritis osteoarthritis Hx Other Medical restless leg sy ndrome Depression Depression Hx Other Medical RLS Disorder of thyroid Thyroid dise ase DVT (deep venous thrombosis) (CMS/HCC) (HCC) Cancer (CMS/HCC) (HCC) breast PE (pulmonary thromboembolism) (CMS/HCC) (HCC) Diabetes (HCC) CHF (congestive heart failure) (CMS/HCC) (HCC) Sleep apnea Breast CA (HCC) Family History Medical History Relation Name Comments Heart attack Brother 1 1 Myocardial Infa rction; Cause of : Myocardial Infarction Stent Brother 2 2 Coronary Stent Placement; Other Father hemochromotosis ; Prostate cancer Father Cancer, pros campo; /Cancer, prostate; Cause of : Cancer, prostate Diabetes Mother Diabetes mellit us; Heart disease Mother Heart disease; Heart failure Mother Congestive Hea rt Failure; Other Mother heart diesease; Cause of : heart diesease Stroke Mother Stroke; Cause o f : Stroke Other Other Family history of restless leg syndrome; Breast cancer Sister Cancer, breast ; Relation Name Status Comments Brother 1 1 Brother 2 2 Alive Father Mother Other Sister Social History Tobacco Use Types Packs/Day Years Used Date Smoking Tobacco: Former Smokeless Tobacco: Never Tobacco Cessation:Counseling Given: Not Answered Comments:remote tobacco use Alcohol Use Standard Drinks/Week Comments No 0 (1 standard drink = 0.6 oz pur e alcohol) [facility] Utilities Answer Date Recorded In the [...] often do you attend chur ch or temple services? Patient unable to answer 08/15/2023 Do you belong to any clubs o r organizations such as evangelical groups, unions, fraternal or athletic groups, or [...] on file Legal Sex Female 12:24 AM [employer] Gender Identity Not on file Sexual Orientation Not on file Obstetrics History Last Filed Vital Signs Vital Sign Reading [...] 12/28/2023 12:43 PM CDT Plan of Treatment Health Maintenance Due Date Last Done Comments Albumin Creatinine Ratio, Urine 1955 Hepatitis C Screening 1955 Dilated Eye Exam 1955 Foot Exam 1955 Pneumococcal vaccine 65+ (1 of 2 - PCV) 1962 Hepatitis B Screening 1974 Zoster Vaccine (1 of 2) 1975 Breast Cancer Screening-Mammogram 08/19/2017 017 Depression Screening 01/23/2019 01/23/2018, 01/24/20 Covid-19 Vaccine (2 - Jansse n risk series) 07/27/2020 06/29/2020 Well Visit 65+ 2021 Influenza Vaccine (#1) 2023 , 01/03/2022, 05/04/2021, Additional history exists Hemoglobin A1C 02/13/2024 08/14/2023, 01/23, 01/23/2018, Additional history exists Osteoporosis Screening-Bone Density Scan 08/02/2024 08/02/2022, 08/02/2022, 11/10/2020, Additional history exists Fall Risk Assessment 08/17/2024 08/18/2023 Lipid Panel 10/13/2024 10/14/2023, 07/24, 01/24/2018, Additional history exists eGFR 02/14/2025 02/15/2024, 09/0 08/2023, 11/21/2023, Additional history exists DTaP/Tdap/Td Vaccine (2 - Td or Tdap) 02/22/2026 02/23/2016 Colon Cancer Screening-Colonoscopy 07/04/2027 07/03/2017 Colon Cancer Screening-CT Colonography Discontinued 07/03/2017 Colon Cancer Screening-DNA Stool Discontinued 07/04/19 18 Colon Cancer Screening-FIT Discontinued 07/03/2017 Colon Cancer Screening-Sigmoidoscopy Discontinued 07/03/2017 Procedures Procedure Name Priority Date/Time Associated Diagnosis [...] Yellow Yellow Comment:Testing performed by : [address] [address] Clarity, ur Clear Clear MARY JANE Comment:Testing performed by : [address] [address] Specific gravity, ur 1.023 1.003 - 1.030 MARY JANE Comment:Testing performed by : [address], [place]., [address] pH, urine 5.5 MARY JANE Comment: Interpretive Data ? Urine pH is affected by diet, medications, systemic acid-base disturbances, and renal tubular function. ??pH may affect urinary stone formation. ??For example, urine pH below 6.0 may help reduce the tendency for calcium phosphate stones and pH greater than 6.0 may reduce the tendency for uric acid stone formation. Source: [facility] [employer] Current Interpretive Data was last revised on 2017 Testing performed by: [address] [address] Protein, ur ql Negative Negative MARY JANE Comment:Testing performed by : [address] [address] Glucose, ur ql Trace(A) Negative MARY JANE Comment:Testing performed by : [address] [address] Ketones, ur Negative Negative MARY JANE Comment:Testing performed by : [address] [address] Bilirubin, ur Negative Negative MARY JANE Comment:Testing performed by : [address] [address] Blood, ur 1+(A) Negative MARY JANE Comment:Testing performed by : [address] [address] Urobilinogen, ur <2.0 <2.0 mg/dL MARY JANE Comment:Testing performed by : [address] [address] Nitrite, ur Negative Negative MARY JANE Comment:Testing performed by : [address] [address] Leukocyte esterase, ur Negative Negative MARY JANE Comment:Testing performed by : [address] [address] UA reflex comment Reflex to microscopic UA will be performed. MARY JANE Comment:Testing performed by : [address] [address] Urine, in and out catheter 02/15/2024 1:19 AM CDT 02/15/2024 1:23 AM CDT Jeremías Smith MD LAB MICROBIOLOGY - GENERAL ORD ERABLES Final Result Performing Organization Address [facility] Co de Phone Number MARY JANE [address] [facility] Department [place] [address] * (ABNORMAL) Urinalysis, microscopic only (02/15/2024 1:19 AM CDT) WBC, ur 0-5 0 - 5 /HPF Comment:Testing performed by : [address] [address] RBC, ur 3-5(A) 0 - 2 /HPF MARY JANE Comment:Testing performed by : [address] [address] Epithelial cells, squamous, ur 1-5 0 - 5 /HPF MARY JANE Comment:Testing performed by : [address] [address] Mucous, ur Present(A) MARY JANE Comment:Testing performed by : [address] [address] Hyaline casts, ur 1-5 0 - 10 /LPF MARY JANE Comment:Testing performed by : [address] [address] Culture Reflex Comment Reflex conditions for urine culture (WBC >10) not met. MARY JANE Comment:Testing performed by : [address] [address] Urine, in and out catheter 02/15/2024 1:19 AM CDT 02/15/2024 1:23 AM CDT Jeremías Smith MD LAB URINE ORDERABLES Final Res ult MARY JANE [address] [facility] Department [place] [address] * eGFR (02/15/2024 1:09 AM CDT) eGFR [...] was last reviewed 2021. Testing performed by: [facility], [address] [place] [address]., [address] Blood 02/15/2024 1:09 AM CDT 02/15/2024 1:15 AM CDT us Jeremías Smith MD LAB BLOOD ORDERABLES Final Res ult MARY JANE [address] [facility] Department [place] [address] * Creatine kinase (CK), total (02/15/2024 1:09 AM CDT) CK 137 30 - 200 Units/L Comment:Testing performed by : [address] [address] Blood 02/15/2024 1:09 AM CDT 02/15/2024 4:55 AM CDT us Jeremías Smith MD LAB BLOOD ORDERABLES Final Res ult [facility] [address] [facility] Department [place] [address] * (ABNORMAL) Comprehensive metabolic panel (02/15/2024 1:09 AM CDT) Pathologist [facility] Sodium 137 135 - 145 mmol/L Comment:Testing performed by : [address] [address] Potassium, pl 4.3 3.3 - 4.9 mmol/L MARY JANE Comment:Testing performed by : [address] [address] Chloride 100 97 - 110 mmol/L MARY JANE Comment:Testing performed by : [address] [address] CO2 29 22 - 32 mmol/L MARY JANE Comment:Testing performed by : [address] [address] Anion gap 8 2 - 15 mmol/L MARY JANE Comment:Testing performed by : [address] [address] BUN 22 6 - 25 mg/dL MARY JANE Comment:Testing performed by : [address] [address] Creatinine 0.60 0.60 - 1.10 mg/dL MARY JANE Comment:Testing performed by : [address] [address] Glucose 231(H) 70 - 199 mg/dL MARY [...] last revised 2022. Testing performed by: [address] [address] Calcium 10.3 8.5 - 10.3 mg/dL MARY JANE Comment:Testing performed by : [address] [address] Bilirubin, total 0.4 0.1 - 1.2 mg/dL MARY JANE Comment:Testing performed by : [address] [address] Protein, pl 8.2 6.5 - 8.5 g/dL MARY JANE Comment:Testing performed by : [address] [address] Albumin 3.9 3.5 - 5.0 g/dL MARY JANE Comment:Testing performed by : [address] [address] Alk phos 74 40 - 130 Units/L MARY JANE Comment:Testing performed by : [address] [address] ALT 18 7 - 45 Units/L MARY JANE Comment:Testing performed by : [address] [address] AST 16 10 - 45 Units/L MARY JANE Comment:Testing performed by : [address] [address] Blood 02/15/2024 1:09 AM CDT 02/15/2024 1:15 AM CDT us Jeremías Smith MD LAB BLOOD ORDERABLES Final Res ult [facility] [address] [facility] Department [place] [address] * Influenza A/B, RSV, and COVID-19 PCR Nasopharyngeal (02/14/2024 11:43 PM CDT) Pathologist [facility] COVID-19 RNA Negative Negative Comment:Testing performed by : [address] [address] Influenza A RNA Negative Negative [facility] Comment:Testing performed by : [address] [address] Influenza B RNA Negative Negative [facility] Comment:Testing performed by : [address] [address] RSV RNA Negative Negative [facility] Comment: Interpretive data: Testing performed by [facility]. This test is performed using the Wom[employer] Xpress CoV-2/Flu/RSV plus assay. This is a multiplex, real-time reverse transcriptase PCR assay intended for the qualitative detection of nucleic acid from SARS-CoV-2, influenza A, influenza B, and respiratory syncytial virus. This assay has been cleared by the [place] Food and Drug administration. The performance characteristics have been verified by the [facility]. ??Results must be considered in the clinical context, and a negative result does not rule out infection. Interpretive Data last revised 2023 Testing performed by: [address] [address] Nasopharyngeal 02/14/2024 11 :43 PM CDT 02/14/2024 11:49 PM CDT Narrative [facility] - 02/15/2024 12:35 AM CDT Is the Patient experiencing symptoms consistent with COVID?->Yes us Jeremías Smith MD LAB MICROBIOLOGY - GENERAL ORD ERABLES Final Result MARY JANE [address] [facility] Department [place] [address] * Differential, auto (02/14/2024 11:43 PM CDT) Pathologist [facility] Neutrophil abs 6.4 1.5 - 6.5 K/cumm Comment:Testing performed by : [address] [address] Imm gran abs 0.1 0.0 - 0.1 K/cumm [facility] Comment:Testing performed by : [address] [address] Lymphocyte abs 2.5 0.8 - 3.3 K/cumm [facility] Comment:Testing performed by : [address] [address] Monocyte abs 0.7 0.2 - 0.8 K/cumm [facility] Comment:Testing performed by : [address] [address] Eosinophil abs 0.3 0.0 - 0.5 K/cumm [facility] Comment:Testing performed by : [address] [address] Basophil abs 0.0 0.0 - 0.1 K/cumm [facility] Comment:Testing performed by : [address] [address] Neutrophil pct 63.7 % [facility] Comment: Interpretive Data Percent cell count reference ranges are not reported, since discordance with absolute values may lead to misinterpretation of CBC data. Current Interpretive Data was last revised on 2017. Testing performed by: [address] [address] Imm gran pct 0.5 % [facility] Comment: Interpretive Data Percent cell count reference ranges are not reported, since discordance with absolute values may lead to misinterpretation of CBC data. Current Interpretive Data was last revised on 2017. Testing performed by: [address] [address] Lymphocyte pct 24.7 % [facility] Comment: Interpretive Data Percent cell count reference ranges are not reported, since discordance with absolute values may lead to misinterpretation of CBC data. Current Interpretive Data was last revised on 2017. Testing performed by: [address] [address] Monocyte pct 7.4 % [facility] Comment: Interpretive Data Percent cell count reference ranges are not reported, since discordance with absolute values may lead to misinterpretation of CBC data. Current Interpretive Data was last revised on 2017. Testing performed by: [address] [address] Eosinophil pct 3.3 % MARY JANE PHAM Comment: Interpretive Data Percent cell count reference ranges are not reported, since discordance with absolute values may lead to misinterpretation of CBC data. Current Interpretive Data was last revised on 2017. Testing performed by: [address] [address] Basophil pct 0.4 % MARY JANE PHAM Comment: Interpretive Data Percent cell count reference ranges are not reported, since discordance with absolute values may lead to misinterpretation of CBC data. Current Interpretive Data was last revised on 2017. Testing performed by: [address] [address] Blood 02/14/2024 11:4 3 PM CDT 02/14/2024 11:49 PM CDT us Jeremías Smith MD LAB BLOOD ORDERABLES Final Res ult MARY JANE [facility] Department [place] [address] * (ABNORMAL) CBC with auto differential (02/14/2024 11:43 PM CDT) WBC 10.0(H) 3.8 - 9.9 K/cumm Comment:Testing performed by : [address] [address] Hgb 13.7 11.9 - 15.5 g/dL MARY JANE PHAM Comment:Testing performed by : [address] [address] Hct 42.4 35.6 - 45.5 % MARY JANE PHAM Comment:Testing performed by : [address] [address] Plt 273 150 - 400 K/cumm MARY JANE PHAM Comment:Testing performed by : [address] [address] MPV 10.3 9.1 - 12.3 fL MARY JANE PHAM Comment:Testing performed by : [address] [address] RBC 4.73 3.90 - 5.20 M/cumm MARY JANE PHAM Comment:Testing performed by : [address] [address] MCV 89.6 81.3 - 96.4 fL MARY JANE Comment:Testing performed by : [address] [address] MCH 29.0 27.1 - 33.3 pg MARY JANE Comment:Testing performed by : [address] [address] MCHC 32.3 32.3 - 35.7 g/dL MARY JANE Comment:Testing performed by : [address] [address] RDW CV 13.8 11.1 - 14.9 % MARY JANE Comment:Testing performed by : [address] [address] RDW SD 45.0 35.7 - 48.1 fL MARY JANE Comment:Testing performed by : [address] [address] NRBC abs 0.00 0.00 - 0.01 K/cumm MARY JANE Comment:Testing performed by : [address] [address] Blood 02/14/2024 11:4 3 PM CDT 02/14/2024 11:49 PM CDT us Jeremías Smith MD LAB BLOOD ORDERABLES Final Res ult MARY JANE [address] [facility] Department [place] [address] * aPTT (02/14/2024 11:43 PM CDT) [facility] aPTT 31 22 - 37 sec Comment: Interpretive data aPTT test has not been evaluated for monitoring heparin therapy. The anti-Xa is the preferred test. Current interpretive data was last revised on 2019. Testing performed by: [address] [address] Blood 02/14/2024 11:4 3 PM CDT 02/14/2024 11:49 PM CDT Jeremías Smith MD LAB BLOOD ORDERABLES Final Res ult Performing Organization Address [facility] de Phone Number MARY JANE [address] [address] * (ABNORMAL) Protime-INR (02/14/2024 11:43 PM CDT) PT 16.9(H) 12.0 - 14.6 sec Comment: Ref Range High Testing performed by: [address] [address] INR 1.4(H) 0.9 - 1.2 MARY JANE Comment: Ref Range High Interpretive data Oral anticoagulant therapeutic ranges: Venous thromboembolism prophylaxis or treatment: 2.0-3.0 CARDIOLOGY Standard range: 2.0-3.0 High-intensity range: 2.5-3.5 Refer to indication-specific guidelines for appropriate target ranges for prosthetic heart valve replacement. Current interpretive data was last revised on 2019. Testing performed by: [address] [address] Blood 02/14/2024 11:4 3 PM CDT 02/14/2024 11:49 PM CDT Jeremías Smith MD LAB BLOOD ORDERABLES Final Res ult Performing Organization Address [facility] Co de Phone Number [place] [address] [place] [address] * (ABNORMAL) Hemoglobin A1c (08/14/2023 8:47 PM CDT) Hgb A1C 8.4(H) 4.0 - 5.6 % Comment:Testing performed by : [address] [address] Estimated Average Glucose 194 mg/dL MARY JANE Comment: The ADA recommends reporting an estimated Average Glucose (eAG) with all Hemoglobin A1c results using the equation derived from a study of 507 normal and diabetic adults. ??Minority populations were underrepresented and children were not included. ?? (Diabetes Care 31:8954-6795, 2008). ??The eAG is not equivalent to a fasting glucose. Testing performed by: [facility], [address] [place] [address]., [address] Blood 08/14/2023 8:47 PM CDT 08/14/2023 8:52 PM CDT us Philippe Mcguire MD LAB BLOOD ORDERABLES Final Result MARY JANE PHAM [address] [facility] Department [place] [address] * Lipid panel (08/14/2023 8:47 PM CDT) Cholesterol 176 30 - 199 mg/dL Comment: [...] last revised on 2017. Testing performed by: [facility], [address] [place] [address]., [address] Triglycerides 121 <=149 mg/dL MARY JANE PHAM Comment: Interpretive Data [...] revised on 2017. Testing performed by: [address] [address] HDL 44 >=40 mg/dL MARY JANE PHAM Comment: Interpretive Data [...] revised on 2017. Testing performed by: [address] [address] LDL, calculated 108 <=129 mg/dL MARY JANE [...] revised on 2017. Testing performed by: [address] [address] Non-HDL Cholesterol 132 mg/dL MARY JANE PHAM Comment: Interpretive Data [...] revised on 2017. Testing performed by: [address] [address] Chol/HDL ratio 4 MARY JANE Comment:Testing performed by : [address] [address] Blood 08/14/2023 8:47 PM CDT 08/14/2023 8:52 PM CDT us Philippe Mcguire MD LAB BLOOD ORDERABLES Final Result MARY JANE [address] [facility] Department [place] [address] * Dexa Axial Skeleton Bone Density 1 or 2 Site (08/02/2022 10:53 AM CDT) Anatomical Region Laterality Modality Body N/A Radiographic Lizeth ging Narrative 08/02/2022 3:34 PM CDT Patient Name: Karly Marques Date of : 1955 Date of scan: 08/02/2022 Bone mineral density was performed on a [employer] Discovery Densitometer. ?? Based on machine cross-calibration [...] mineral density scan were prepared by Yesenia Hernandez) CUATET ??who is accredited by the International Society of Clinical Densitometry. The overall patient assessment and scan interpretation were performed by Kaylie Castro MD ??who is certified by the International Society of Clinical Densitometry. [id number] us Khris Arthur MD IMG DXA PROCEDURES F inal Result * COLONOSCOPY [...] agrees with it. ACC# ??Date Time ??Exam [id number] Aug 19, 2016 14:27:00 [facility] [address] Diag Mamm, inc CAD, unilat L ?? Technologist(s): Carla Harris; ; [id number] Aug 19, 2016 15:39:00 [facility] [address] Breast US unilateral, ltd L ACC# ??Date Time ??Exam [id number] Aug 19, 2016 14:27:00 [facility] [address] Diag Mamm, inc CAD, unilat L ?? Technologist(s): Carla Harris; ; [id number] Aug 19, 2016 15:39:00 [facility] [address] Breast US unilateral, ltd L EXAMINATION: ?? [...] SARABIA M.D. on Aug 19 2016 ??4:20P [id number] Procedure Note Miscellaneous, Not In File / Provider, MD Tyler - 09/17/2016 ANTHONY SARABIA M.D. JUDY RINCON M.D. FINAL REPORT The radiology attending physician has personally reviewed this study, and has reviewed and/or edited this written report and agrees with it. ACC# Date Time Exam [id number] Aug 19, 2016 14:27:00 [facility] [address] DiaGeliyoo Mamm, inc CAD, unilat L Technologist(s): Carla Harris; ; [id number] Aug 19, 2016 15:39:00 [facility] [address] Breast US unilateral, ltd L ACC# Date Time Exam [id number] Aug 19, 2016 14:27:00 [facility] [address] Diag Mamm, inc CAD, unilat L Technologist(s): Carla Harris; ; [id number] Aug 19, 2016 15:39:00 [facility] [address] Breast US unilateral, ltd L EXAMINATION: LEFT [...] ANTHONY SARABIA M.D. on Aug 19 2016 4:20P [id number] us Not In File Miscellaneous IMG MAMMO PROCEDURES F inal Result from Last 3 Months or Most Recently Relevant to Health Maintenance Insurance [employer] MEDICARE SOLUTIONS MEDICARE SOLUTIONS [facility] MEDICARE SOLUTIONS Advance Directives For more information, please contact: [phone] Documents on File Type Date Recorded Patient Edge Glue Machine Tender Expl anation ADVANCE DIRECTIVE 12/23/2021 2:49 PM Power of Fleet Maintenance Foreman-Medical ADVANCE DIRECTIVE 12/23/2021 2:49 PM Living Will [...] Agents on File Name Relationship Healthcare Agent [facility] Communication Yunior Marques Daughter Health Care Agent [phone] (Mobile) Jimmie Marques Spouse First Alternate Health Care Agent Care Teams Shirring Tender Relationship Specialty Start Date End Date Justen Gale MD [address] [address] PCP - General 10/09/17 Liu Jerez MD Consulting Physician Gastroenterology 07/28/17 [place] [address] [facility] [id number] [place] [address] Consulting Physician Pulmonary Disease 08/03/17 Khris Arthur MD [address] [facility] [address] [place] [address] Medical Oncologist/Bricklayer Tender Medical Oncology 10/23/17 [place] [address] [facility] [facility] [address] [place] [address] Surgeon Orthopedic Surgery 10/23/17 [place] [address] [facility] [address] [place] [address] Consulting Physician Pain Management 10/23/17 [place] [address] [facility] [address] [place] [address] Referring Physician General Surgery 01/26/18 [place] [address] [facility] [address] [place] [address] Consulting Physician Neurology 01/26/18
--- OUTSIDE RECORDS SUMMARY | 2024-04-26 04:17 | XMS_ITS | Encounter Summary ---
Author Organization [facility] Healthcare Address [address] [place] [address] Care Team Providers Care Underwriting Support Manager Name Role Phone Liu Jerez MD Unavailable Albert Corbin MD Unavailable [phone] Justen Gale MD Primary Care Provider Khris Arthur MD Unavailable [phone] Ko Melendez MD Unavailable [phone] John Paul Moyer MD Unavailable [phone] Annel Rod MD Unavailable Anali MARSHALL MD, Carlos M. Unavailable [phone] Reason for Visit * Reason Comments Generalized Body Aches Encounter Details Date Type Department Care Team (Late st Contact Info) Description 02/15/2024 2:22 AM CDT - 02/15/2024 5:58 AM CDT Emergency [facility] Emergency Department [address] [place] [id number] [place] [address] [place] [address] [place] [address] Myalgia (Primary Dx) Discharge Disposition: Discharge to home or self care Social History Tobacco Use Types Packs/Day Years Used Date Smoking Tobacco: Former Smokeless Tobacco: Never Comments:remote tobacco use Alcohol Use Standard Drinks/Week Comments No 0 (1 standard drink = 0.6 oz pur e alcohol) [facility] Utilities Answer Date Recorded In the past 12 months has e [employer], gas, oil, or water company threatened to [...] answer 08/15/2023 How often do you attend [facility] or mormon services? Patient unable to answer 08/15/2023 Do you belong to any clubs o r organizations such as hinduism groups, unions, fraternal or athletic groups, or [...] slept in a longterm (including now)? No 08/15/2023 Personal Safety Answer Date Recorded Have you ever been in or are you currently in a harmful physical or emotional relationship or is someone making you feel afraid or unsafe? 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 * Musculoskeletal Pain (AfterCare(R) Instructions(ER/ED)) (Libyan) documented in this encounter Medications at Time of Discharge albuterol HFA (PROVENTIL HFA,VENTOLIN HFA,PROAIR HFA) 90 mcg/actuation inhaler Inhale 2 puffs every 6 (six) hours as needed for wheezing or shortness of breath 04/19/2021 BD Ultra-Fine Short Pen Needle 31 gauge x 5/16 needle USE 6 TIMES DAILY DIRECTED 06/24/2021 blood glucose diagnostic (Pairyuch Ultra Test) strip 4 (four) times a [...] ED Notes * Jeremías Smith MD - 02/15/2024 4:18 AM CDT Patient Name: Karly Marques Patient Age: 68 y.o. Date of Service: 02/14/2024 Chief Complaint Patient presents with Generalized Body Aches HPI 68-year-old female with history of diabetes, hypertension, obesity, sleep apnea, heart failure, DVTon rivaroxaban w/ body aches. Onset for the last 1-2 days, diffuse body aches, worse in her extremities as well as her low back. No fever, chills, sore throat or runny nose. No chest pain, shortness of breath or abdominal pain. No dark or bloody stools. No urinary symptoms. States that she does notthink she has been around anyone sick and no travel recently. Took home hydrocodone without much improvement. No weakness or numbness, no bowel or bladder incontinence. Past Medical History: Diagnosis Date Adiposity obesity Breast CA (HCC) Cancer (CMS/HCC) (HCC) breast CHF (congestive heart failure) (CMS/HCC) (HCC) Depression Depression Diabetes (HCC) Disorder of thyroid Thyroid disease DVT (deep venous thrombosis) (CMS/[facility]) (HCC) HX OTHER MEDICAL restless leg syndrome HX OTHER MEDICAL RLS Hypertension Hypertension Osteoarthritis osteoarthritis PE (pulmonary thromboembolism) (CMS/[facility]) ([facility]) Sleep apnea Past Surgical History: Procedure Laterality [...] US SOFT TISSUE ABSCESS DRAIN N/A 10/24/2014 Exam Vitals: 02/14/24 2319 02/15/24 0227 02/15/24 0445 02/15/24 0500 BP: 140/100 143/95 123/75 123/78 BP Location: Right arm Pulse: 88 78 78 77 Resp: 16 18 18 Temp: 37.3 ??C (99.1 ??F) TempSrc: Oral SpO2: 98% 95% 94% 91% Weight: 120.6 kg (265 lb 14 oz) Gen: NAD Head: NCAT Eyes: EOMI ENT: MMM Pulm: CTAB Cardio: Radial/DP/PT a 2+ bilateral equal Abd: Bs+, no ttp Msk: No deformity, no edema, compartment soft, allows range of motion of joints with little difficulty, tenderness palpation in low back erector muscles but no spinous process tenderness palpation Skin: warm, dry Neuro: AOx3, speech clear, no face/tongue/palate asymmetry, strength 5/5 bilaterally, FTN/HTS within normal limits, SILT, gait stable Labs with values returned at the time of this note: Labs Reviewed URINALYSIS AND REFLEX TO MICROSCOPIC AND CULTURE - Abnormal Result Value Color, ur Yellow Clarity, ur Clear Specific gravity, ur 1.023 pH, urine 5.5 Protein, ur ql Negative Glucose, ur ql Trace (*) Ketones, ur Negative Bilirubin, ur Negative Blood, ur 1+ (*) Urobilinogen, ur <2.0 Nitrite, ur Negative Leukocyte esterase, ur Negative UA reflex comment Reflex to microscopic UA will be performed. CBC WITH AUTO DIFFERENTIAL - Abnormal WBC 10.0 (*) Hgb 13.7 Hct 42.4 Plt 273 MPV 10.3 RBC 4.73 MCV 89.6 MCH 29.0 MCHC 32.3 RDW CV 13.8 RDW SD 45.0 NRBC abs 0.00 PROTIME-INR - Abnormal PT 16.9 (*) INR 1.4 (*) COMPREHENSIVE METABOLIC PANEL - Abnormal Sodium 137 Potassium, pl 4.3 Chloride 100 CO2 29 Anion gap 8 BUN 22 Creatinine 0.60 Glucose 231 (*) Calcium 10.3 Bilirubin, total 0.4 Protein, pl 8.2 Albumin 3.9 Alk phos 74 ALT 18 AST 16 URINALYSIS, MICROSCOPIC ONLY - Abnormal WBC, ur 0-5 RBC, ur 3-5 (*) Epithelial cells, squamous, ur 1-5 Mucous, ur Present (*) Hyaline casts, ur 1-5 Culture Reflex Comment Value: Reflex conditions for urine culture (WBC >10) not met. INFLUENZA A/B, RSV, AND COVID-19 PCR COVID-19 RNA Negative Influenza A RNA Negative Influenza B RNA Negative RSV RNA Negative Narrative: Is the Patient experiencing symptoms consistent with COVID?->Yes APTT aPTT 31 DIFFERENTIAL AUTO Neutrophil abs 6.4 Imm gran abs 0.1 Lymphocyte abs 2.5 Monocyte abs 0.7 Eosinophil abs 0.3 Basophil abs 0.0 Neutrophil pct 63.7 Imm gran pct 0.5 Lymphocyte pct 24.7 Monocyte pct 7.4 Eosinophil pct 3.3 Basophil pct 0.4 EGFR eGFR >90 CREATINE KINASE (CK), TOTAL CK 137 POCT GLUCOSE DEVICE POCT GLUCOSE DEVICE POCT GLUCOSE DEVICE POCT GLUCOSE DEVICE POCT GLUCOSE DEVICE POCT GLUCOSE DEVICE POCT GLUCOSE DEVICE No orders to display Procedures Medications acetaminophen (TYLENOL) tablet 650 mg (650 mg oral Given 02/14/24 1711) morphine injection 8 mg (8 mg intravenous Given 02/15/24 8059) ondansetron (ZOFRAN) injection 4 mg (4 mg intravenous Given 02/15/24 0446) MDM ED Course as of 02/15/24 0534 Time: 02/15 424 Value: WBC(!): 10.0 Comment: Borderline, afebrile and vital signs are stable By: Jeremías Smith MD Time: 02/14 425 Value: COVID-19 RNA: Negative Comment: (Reviewed) By: Jeremías Smith MD Time: 02/14 425 Value: Influenza A RNA: Negative Comment: (Reviewed) By: Jeremías Smith MD Time: 02/14 425 Value: Influenza B RNA: Negative Comment: (Reviewed) By: Jeremías Smith MD Time: 02/14 425 Value: RSV RNA: Negative Comment: (Reviewed) By: Jeremías Smith MD Time: 02/14 425 Value: Hgb: 13.7 Comment: Normal By: Jeremías Smith MD Time: 02/14 425 Value: Urinalysis reflex to microscopic and culture Urine, in and out catheter(!): Color, ur Yellow Clarity, ur Clear Specific gravity, ur 1.023 pH, urine 5.5 Protein, ur ql Negative Glucose, ur ql Trace(!) Ketones, ur Negative Bilirubin, ur Negative Blood, ur 1+(!) Urobilinogen, ur <2.0 Nitrite, ur Negative Leukocyte esterase, ur Negative UA reflex comment Reflex to microscopic UA will be performed. Comment: Urinalysis not suggestive of infection By: Jeremías Smith MD Time: 02/14 425 Value: Creatinine: 0.60 Comment: Normal By: Jeremías Smith MD Time: 02/14 425 Value: Bilirubin, total: 0.4 Comment: Normal in LFTs within normal limits By: Jeremías Smith MD Time: 02/14 510 Value: CK: 137 Comment: Not cw rhabdo or myositis By: Jeremías Smith MD Impression 1. Myalgia Jeremías Smith MD 02/15/24 0535 * Melani Suarez, RN - 02/14/2024 11:19 PM CDT Pt arrives with c/o generalized body aches. Pt reports that she took her home hydrocodone and it hasn't helped. Pt frequents the ED. documented in this encounter Plan of Treatment Not on file documented as of this encounter Procedures Procedure Name Priority Date/Time Associated Diagnosis Comments URINALYSIS AND REFLEX TO MICROSCOPIC AND CULTURE STAT 02/15/2024 1:19 AM CDT URINALYSIS, MICROSCOPIC ONLY STAT 02/15/2024 1:19 AM CDT EGFR STAT 02/15/2024 1:09 AM CDT CREATINE KINASE (CK), TOTAL Add-On 02/15/2024 1:09 AM CDT COMPREHENSIVE METABOLIC PANEL STAT 02/15/2024 1:09 AM CDT INFLUENZA A/B, RSV, AND COVID-19 PCR STAT 02/14/2024 11:43 PM CDT DIFFERENTIAL AUTO STAT 02/14/2024 11: 43 PM CDT CBC WITH AUTO DIFFERENTIAL STAT 02/14/2024 11:43 PM CDT APTT STAT 02/14/2024 11:43 PM CDT PROTIME-INR STAT 02/14/2024 11:43 PM CDT documented in this encounter Results * (ABNORMAL) Urinalysis, microscopic only (02/15/2024 1:19 AM CDT) WBC, ur 0-5 0 - 5 /HPF Comment:Testing performed by : [address] [address] RBC, ur 3-5(A) 0 - 2 /HPF MARY JANE Comment:Testing performed by : [address] [address] Epithelial cells, squamous, ur 1-5 0 - 5 /HPF MARY JANE Comment:Testing performed by : [address], [place]., [address] Mucous, ur Present(A) MARY JANE Comment:Testing performed by : [address] [address] Hyaline casts, ur 1-5 0 - 10 /LPF MARY JANE Comment:Testing performed by : [address] [address] Culture Reflex Comment Reflex conditions for urine culture (WBC >10) not met. MARY JANE Comment:Testing performed by : [address] [address] Urine, in and out catheter 02/15/2024 1:19 AM CDT 02/15/2024 1:23 AM CDT us Jeremías Smith MD LAB URINE ORDERABLES Final Res ult MARY JANE [address] [facility] [place] [address] * (ABNORMAL) Urinalysis reflex to microscopic and culture Urine, in and out catheter (02/15/2024 1:19AM CDT) Color, ur Yellow Yellow Comment:Testing performed by : [address] [address] Clarity, ur Clear Clear MARY JANE Comment:Testing performed by : [address] [address] Specific gravity, ur 1.023 1.003 - 1.030 MARY JANE Comment:Testing performed by : [facility], [address] [place] [address], [place]., [address] pH, urine 5.5 MARY JANE Comment: Interpretive Data ? Urine pH is affected by diet, medications, systemic acid-base disturbances, and renal tubular function. ??pH may affect urinary stone formation. ??For example, urine pH below 6.0 may help reduce the tendency for calcium phosphate stones and pH greater than 6.0 may reduce the tendency for uric acid stone formation. Source: [facility] [employer] Current Interpretive Data was last revised on 2017 Testing performed by: [address], [place]., [address] Protein, ur ql Negative Negative MARY JANE Comment:Testing performed by : [address], [place]., [address] Glucose, ur ql Trace(A) Negative MARY JANE Comment:Testing performed by : [address], [place]., [address] Ketones, ur Negative Negative MARY JANE Comment:Testing performed by : [address], [place]., [address] Bilirubin, ur Negative Negative MARY JANE Comment:Testing performed by : [address], [place]., [address] Blood, ur 1+(A) Negative MARY JANE Comment:Testing performed by : [address], [place]., [address] Urobilinogen, ur <2.0 <2.0 mg/dL MARY JANE Comment:Testing performed by : [address] [address] Nitrite, ur Negative Negative MARY JANE Comment:Testing performed by : [address], [place]., [address] Leukocyte esterase, ur Negative Negative MARY JANE Comment:Testing performed by : [address] [address] UA reflex comment Reflex to microscopic UA will be performed. MARY JANE Comment:Testing performed by : [address], [place]., [address] Urine, in and out catheter 02/15/2024 1:19 AM CDT 02/15/2024 1:23 AM CDT us Jeremías Smith MD LAB MICROBIOLOGY - GENERAL ORD ERABLES Final Result Performing Organization Address [facility] Co de Phone Number MARY JANE [facility] [place] [address] * Creatine kinase (CK), total (02/15/2024 1:09 AM CDT) CK 137 30 - 200 Units/L Comment:Testing performed by : [facility], [address] [place] [address]., [address] Blood 02/15/2024 1:09 AM CDT 02/15/2024 4:55 AM CDT us Jeremías Smith MD LAB BLOOD ORDERABLES Final Res ult Performing Organization Address [facility] Co de Phone Number MARY JANE [facility]0 [facility] [place] [address] * eGFR (02/15/2024 1:09 AM CDT) eGFR [...] was last reviewed 2021. Testing performed by: [address] [address] Blood 02/15/2024 1:09 AM CDT 02/15/2024 1:15 AM CDT us Jeremías Smith MD LAB BLOOD ORDERABLES Final Res ult MARY JANE [address] [facility] [place] [address] * (ABNORMAL) Comprehensive metabolic panel (02/15/2024 1:09 AM CDT) Sodium 137 135 - 145 mmol/L Comment:Testing performed by : [address] [address] Potassium, pl 4.3 3.3 - 4.9 mmol/L MARY JANE Comment:Testing performed by : [address] [address] Chloride 100 97 - 110 mmol/L MARY JANE Comment:Testing performed by : [address] [address] CO2 29 22 - 32 mmol/L MARY JANE Comment:Testing performed by : [address] [address] Anion gap 8 2 - 15 mmol/L MARY JANE Comment:Testing performed by : [address] [address] BUN 22 6 - 25 mg/dL MARY JANE Comment:Testing performed by : [address] [address] Creatinine 0.60 0.60 - 1.10 mg/dL MARY JANE Comment:Testing performed by : [address] [address] Glucose 231(H) 70 - 199 mg/dL MARY [...] was last revised 2022. Testing performed by: [address] [address] Calcium 10.3 8.5 - 10.3 mg/dL MARY JANE Comment:Testing performed by : [address] [address] Bilirubin, total 0.4 0.1 - 1.2 mg/dL MARY JANE Comment:Testing performed by : [address] [address] Protein, pl 8.2 6.5 - 8.5 g/dL MARY JANE Comment:Testing performed by : [address] [address] Albumin 3.9 3.5 - 5.0 g/dL MARY JANE Comment:Testing performed by : [address] [address] Alk phos 74 40 - 130 Units/L MARY JANE Comment:Testing performed by : [address] [address] ALT 18 7 - 45 Units/L MARY JANE Comment:Testing performed by : [address] [address] AST 16 10 - 45 Units/L MARY JANE Comment:Testing performed by : [address] [address] Blood 02/15/2024 1:09 AM CDT 02/15/2024 1:15 AM CDT Jeremías Smith MD LAB BLOOD ORDERABLES Final Res ult MARY JANE [address] [facility] [place] [address] * Differential, auto (02/14/2024 11:43 PM CDT) Neutrophil abs 6.4 1.5 - 6.5 K/cumm Comment:Testing performed by : [address] [address] Imm gran abs 0.1 0.0 - 0.1 K/cumm MARY JANE Comment:Testing performed by : [address] [address] Lymphocyte abs 2.5 0.8 - 3.3 K/cumm MARY JANE Comment:Testing performed by : [address] [address] Monocyte abs 0.7 0.2 - 0.8 K/cumm MARY JANE Comment:Testing performed by : [address] [address] Eosinophil abs 0.3 0.0 - 0.5 K/cumm MARY JANE Comment:Testing performed by : [address] [address] Basophil abs 0.0 0.0 - 0.1 K/cumm MARY JANE Comment:Testing performed by : [address] [address] Neutrophil pct 63.7 % MARY JANE Comment: Interpretive Data Percent cell count reference ranges are not reported, since discordance with absolute values may lead to misinterpretation of CBC data. Current Interpretive Data was last revised on 2017. Testing performed by: [address] [address] Imm gran pct 0.5 % MARY JANE Comment: Interpretive Data Percent cell count reference ranges are not reported, since discordance with absolute values may lead to misinterpretation of CBC data. Current Interpretive Data was last revised on 2017. Testing performed by: [address] [address] Lymphocyte pct 24.7 % MARY JANE Comment: Interpretive Data Percent cell count reference ranges are not reported, since discordance with absolute values may lead to misinterpretation of CBC data. Current Interpretive Data was last revised on 2017. Testing performed by: [address] [address] Monocyte pct 7.4 % [facility] Comment: Interpretive Data Percent cell count reference ranges are not reported, since discordance with absolute values may lead to misinterpretation of CBC data. Current Interpretive Data was last revised on 2017. Testing performed by: [address] [address] Eosinophil pct 3.3 % [facility] Comment: Interpretive Data Percent cell count reference ranges are not reported, since discordance with absolute values may lead to misinterpretation of CBC data. Current Interpretive Data was last revised on 2017. Testing performed by: [address] [address] Basophil pct 0.4 % MARY JANE Comment: Interpretive Data Percent cell count reference ranges are not reported, since discordance with absolute values may lead to misinterpretation of CBC data. Current Interpretive Data was last revised on 2017. Testing performed by: [address] [address] Blood 02/14/2024 11:4 3 PM CDT 02/14/2024 11:49 PM CDT us Jeremías Smith MD LAB BLOOD ORDERABLES Final Res ult Performing Organization Address City/State/[facility] Co de Phone Number MARY JANE [address] [facility] Department of Laboratories [place], [place] [id number] * aPTT (02/14/2024 11:43 PM CDT) aPTT 31 22 - 37 sec Comment: Interpretive data aPTT test has not been evaluated for monitoring heparin therapy. The anti-Xa is the preferred test. Current interpretive data was last revised on 2019. Testing performed by: [address] [address] Blood 02/14/2024 11:4 3 PM CDT 02/14/2024 11:49 PM CDT us Jeremías Smith MD LAB BLOOD ORDERABLES Final Res ult Performing Organization Address City/[facility]/ZIP Co de Phone Number MARY JANE [facility]0 [facility] [place] [address] * (ABNORMAL) Protime-INR (02/14/2024 11:43 PM CDT) PT 16.9(H) 12.0 - 14.6 sec Comment: Ref Range High Testing performed by: [address] [address] INR 1.4(H) 0.9 - 1.2 MARY JANE Comment: Ref Range High Interpretive data Oral anticoagulant therapeutic ranges: Venous thromboembolism prophylaxis or treatment: 2.0-3.0 CARDIOLOGY Standard range: 2.0-3.0 High-intensity range: 2.5-3.5 Refer to indication-specific guidelines for appropriate target ranges for prosthetic heart valve replacement. Current interpretive data was last revised on 2019. Testing performed by: [address] [address] Blood 02/14/2024 11:4 3 PM CDT 02/14/2024 11:49 PM CDT us Jeremías Smith MD LAB BLOOD ORDERABLES Final Res ult Performing Organization Address City/[facility] Co de Phone Number MARY JANE [address] [address] * Influenza A/B, RSV, and COVID-19 PCR Nasopharyngeal (02/14/2024 11:43 PM CDT) Pathologist [facility] COVID-19 RNA Negative Negative Comment:Testing performed by : [address] [address] Influenza A RNA Negative Negative MARY JANE Comment:Testing performed by : [address] [address] Influenza B RNA Negative Negative MARY JANE Comment:Testing performed by : [address] [address] RSV RNA Negative Negative MARY JANE PHAM Comment: Interpretive data: Testing performed by [facility]. This test is performed using the [employer] Xpert Xpress CoV-2/Flu/RSV plus assay. This is a multiplex, real-time reverse transcriptase PCR assay intended for the qualitative detection of nucleic acid from SARS-CoV-2, influenza A, influenza B, and respiratory syncytial virus. This assay has been cleared by the [place] Food and Drug administration. The performance characteristics have been verified by the [facility]. ??Results must be considered in the clinical context, and a negative result does not rule out infection. Interpretive Data last revised 2023 Testing performed by: [address] [address] Nasopharyngeal 02/14/2024 11 :43 PM CDT 02/14/2024 11:49 PM CDT Narrative MARY JANE - 02/15/2024 12:35 AM CDT Is the Patient experiencing symptoms consistent with COVID?->Yes us Jeremías Smith MD LAB MICROBIOLOGY - GENERAL ORD ERABLES Final Result MARY JANE [address] [facility] [place] [address] * (ABNORMAL) CBC with auto differential (02/14/2024 11:43 PM CDT) [facility] WBC 10.0(H) 3.8 - 9.9 K/cumm Comment:Testing performed by : [address] [address] Hgb 13.7 11.9 - 15.5 g/dL MARY JANE PHAM Comment:Testing performed by : [address] [address] Hct 42.4 35.6 - 45.5 % MARY JANE PHAM Comment:Testing performed by : [address] [address] Plt 273 150 - 400 K/cumm MARY JANE PHAM Comment:Testing performed by : [address] [address] MPV 10.3 9.1 - 12.3 fL MARY JANE PHAM Comment:Testing performed by : [address] [address] RBC 4.73 3.90 - 5.20 M/cumm MARY JANE PHAM Comment:Testing performed by : [address] [address] MCV 89.6 81.3 - 96.4 fL MARY JANE Comment:Testing performed by : [address] [address] MCH 29.0 27.1 - 33.3 pg MARY JANE Comment:Testing performed by : [address] [address] MCHC 32.3 32.3 - 35.7 g/dL MARY JANE Comment:Testing performed by : [address] [address] RDW CV 13.8 11.1 - 14.9 % MARY JANE Comment:Testing performed by : [address] [address] RDW SD 45.0 35.7 - 48.1 fL MARY JANE Comment:Testing performed by : [address] [address] NRBC abs 0.00 0.00 - 0.01 K/cumm MARY JANE PHAM Comment:Testing performed by : [address] [address] Blood 02/14/2024 11:4 3 PM CDT 02/14/2024 11:49 PM CDT us Jeremías Smith MD LAB BLOOD ORDERABLES Final Res ult MARY JANE [address] [facility] [place] [address] documented in this encounter Visit Diagnoses Diagnosis Myalgia- Primary Unspecified myalgia and myositis documented in this encounter Administered Medications Inactive Administered Medications - up to 3 most recent administrations Medication Order MAR Action Action Date Dose Rate Site acetaminophen (TYLENOL) tablet 650 mg 650 mg, oral, Once, On Mon02/14/24 at 2323, For 1 dose Given 02/14/2024 11:33 PM CDT 650 mg morphine injection 8 mg 8 mg, intravenous, Administer over 4 Minutes, Once, On Valeri 02/15/24 at 0436, For 1 dose Given 02/15/2024 4:46 AM CDT 8 mg ondansetron (ZOFRAN) injection 4 mg 4 mg, intravenous, Administer over 2 Minutes, Once, On Valeri 02/15/24 at 0436, For 1 dose Given 02/15/2024 4:46 AM CDT 4 mg documented in this encounter Active and Recently Administered Medications Times are shown in CDT. Scheduled Medication Order 02/13/2024 02/14/2024 02/15/2024 acetaminophen (TYLENOL) tablet 650 mg (COMPLETED) 650 mg, oral, Once, On Mon02/14/24 at 2323, For 1 dose 2333 (Given - Provider: Melani Suarez RN) morphine injection 8 mg (COMPLETED) 8 mg, intravenous, Administer over 4 Minutes, Once, On Valeri 02/15/24 at 0436, For 1 dose 0446 (Given - Provid er: Analy Mcmillan, NURIS) ondansetron (ZOFRAN) injection 4 mg (COMPLETED) 4 mg, intravenous, Administer over 2 Minutes, Once, On Valeri 02/15/24 at 0436, For 1 dose 0446 (Given - Provid er: Analy Mcmillan, RN) documented in this encounter Care Teams Underwriting Support Manager Relationship Specialty Start Date End Date Justen Gale MD [address] [address] PCP - General 10/09/17 Liu Jerez MD Consulting Physician Gastroenterology 07/28/17 [place] [address] [facility] [address] [place] [address] Consulting Physician Pulmonary Disease 08/03/17 Khris Arthur MD [address] [facility] [address] [place] [address] Medical Oncologist/Lead Slot Technician Medical Oncology 10/23/17 [place] [id number] [facility] [address] [place] [address] Surgeon Orthopedic Surgery 10/23/17 [place] [id number] [facility] [address] [place] [address] Consulting Physician Pain Management 10/23/17 [place] [id number] [facility] [address] [place] [address] Referring Physician General Surgery 01/26/18 [place] [id number] [facility] [address] [place] [address] Consulting Physician Neurology 01/26/18 documented as of this encounter
--- OUTSIDE RECORDS SUMMARY | 2024-04-26 04:17 | XMS_ITS ---
Author Organization [facility] Address [address] [place] [id number] Care Team Providers Care [employer] Technician Name Role Phone Liu Jerez MD Unavailable [phone] Albert Corbin MD Unavailable Justen Gale MD Primary Care Provider Khris Arthur MD Unavailable [phone] Ko Melendez MD Unavailable [phone] John Paul Moyer MD Unavailable Annel Rod MD Unavailable Anali MARSHALL MD, Carlos M. 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 10/17/2019 Thyroid [...] complication, without long-term current use of insulin ([facility]) 10/23/2017 Assessment & Plan (10/23/2017 [...] (07/28/2017): Added automatically from request for surgery [id number] Pulmonary embolism 08/09/2016 Assessment & Plan (10/23/2017 [...] Dyslipidemia History of breast cancer Intractable pain Current Oncology Plans Zoledronic Acid (Reclast) Infusion* Plan Start Date:08/16/2022 Plan Provider:Khris Arthur MD Linked Problems 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 Past Plans Oncology Supportive Care Plan Name Start Date Discontinue Date Treatment Medications Discontinue Reason Plan Provider Zoledronic Acid (ZOMETA) Infusion 01/05/2021 09/07/2021 No medications scheduled. Toxicity/Complic ation Khris Arthur MD Radiation Treatments * No radiation treatments are documented for this patient in [facility]. Treatments may have been administered in another system. Lifetime Dose Tracking * Chemical Lifetime Dose Automatic Entry Manual Entr y DLP 2,647 mGycm 2,647 mGycm 0 mGycm
--- OUTSIDE RECORDS SUMMARY | 2024-04-26 04:18 | XMS_ITS | Encounter Summary ---
Author Organization [facility] Healthcare Address [address] [place] [address] Care Team Providers Care Manager Welding Name Role Phone Liu Jerez MD Unavailable Albert Corbin MD Unavailable Justen Gale MD Primary Care Provider [phone] Khris Arthur MD Unavailable [phone] Ko Melendez MD Unavailable John Paul Moyer MD Unavailable Annel Rod MD Unavailable Anali MARSHALL MD, Carlos M. Unavailable [phone] Reason for Visit * Reason Comments Abdominal Pain Weakness - Generalized Encounter Details Date Type Department Care Team (Late st Contact Info) Description 08/24/2023 5:23 PM CDT - 08/24/2023 9:12 PM CDT Emergency [facility] Emergency Department [address] [place] [address] Kirit Everett DO [address] [place] [id number] Abdominal pain, generalized (Primary Dx); Irritable bowel syndrome, unspecified type Discharge Disposition: Discharge to home or self care Social History Tobacco Use Types Packs/Day Years Used Date Smoking Tobacco: Former Smokeless Tobacco: Never Comments:remote tobacco use Alcohol Use Standard Drinks/Week Comments No 0 (1 standard drink = 0.6 oz pur e alcohol) [facility] Utilities Answer Date Recorded In the past 12 months has e [employer], gas, oil, or water [employer] threatened to shut off services in your [...] answer 08/15/2023 How often do you attend [facility] or sabianism services? Patient unable to answer 08/15/2023 Do [...] to sleep or slept in a senior care (including now)? No 08/15/2023 Personal Safety Answer Date Recorded Have you ever been in or are you currently in a harmful physical or emotional relationship or is someone making you feel afraid or unsafe? Denies 08/24/2023 Comments No Sex and Gender Information Value Date Recorded Sex Assigned at Not on file Legal Sex Female 12:24 AM [employer] Gender Identity Not on file Sexual Orientation Not on file documented as of this encounter Last Filed Vital Signs Vital Sign Reading Time Taken Comments Blood Pressure 140/89 08/24/2023 7:05 PM CDT Pulse 77 08/24/2023 7:05 PM CDT Temperature 37.2 ??C (99 ??F) 08/24/2023 2:17 PM CDT Respiratory Rate 18 08/24/2023 7:05 PM CDT Oxygen Saturation 98% 08/24/2023 7:05 PM CDT Inhaled Oxygen Concentration - - Weight 123.3 kg (271 lb 13.2 oz) 08/24/2023 2:17 PM CDT Height 154.9 cm (5' 1 ) 08/24/2023 2:17 PM CDT Body Mass Index 51.36 08/24/2023 2:17 PM CDT documented in this encounter Discharge Instructions * Attachments The following attachments cannot be sent through Care Everywhere. * Irritable Bowel Syndrome (General Information) (Romanian) documented in this encounter Medications at Time of Discharge albuterol HFA (PROVENTIL HFA,VENTOLIN HFA,PROAIR HFA) 90 mcg/actuation inhaler Inhale 2 puffs every 6 (six) hours as needed for wheezing or shortness of breath 04/19/2021 BD Ultra-Fine Short Pen Needle 31 gauge x 5/16 needle USE 6 TIMES DAILY DIRECTED 06/24/2021 blood glucose diagnostic ([employer] Ultra Test) strip 4 (four) times a [...] mouth 3 (three) times a day 06/20/2023 insulin glargine 100 unit/mL vial for injection Inject 32 Units under the skin daily Takes in the morning 08/18/2023 naloxone (NARCAN) 4 mg/actuation spray,non-aerosol 05/13/2021 ondansetron ODT (ZOFRAN-ODT) 4 mg disintegrating tablet Take 1 tablet (4 mg total) by mouth every 4 (four) hours as needed for nausea or vomiting 20 tablet 08/24/2023 oxyBUTYnin XL (DITROPAN XL) 15 mg 24 hr tablet Take 1 tablet (15 mg total) by mouth daily 06/28/2022 rOPINIRole (REQUIP) 5 mg tablet Take 1 tablet (5 mg total) by mouth nightly Taken at 2100 methenamine (HIPREX) 1 gram tablet Take 1 tablet (1,000 mg total) by mouth 2 (two) times a day 60 tablet 1 08/18/2023 4 HYDROcodone-acetamin ophen (NORCO) 10-325 mg per tablet Take 1 tablet by mouth every 6 (six) hours 08/20/2021 4 insulin lispro (HumaLOG) 100 unit/mL injection Inject 12 Units under the skin 3 (three) times a day before meals. 01/26/2018 4 methocarbamoL (ROBAXIN) 500 mg tablet Take 1 tablet (500 mg total) by mouth 2 (two) times a day as needed for muscle spasms 4 rivaroxaban (Xarelto) 20 mg tabletIndications:Ch ronic anticoagulation,Hist [...] total) by mouth daily 30 tablet 3 05/23/2023 4 documented as of this encounter Ordered Prescriptions Prescription Sig Dispense Quantity Refills Last Filled Start Date End Date ondansetron ODT (ZOFRAN-ODT) 4 mg disintegrating tablet Take 1 tablet (4 mg total) by mouth every 4 (four) hours as needed for nausea or vomiting 20 tablet 08/24/2023 dicyclomine (BENTYL) 10 mg capsule Take 1 capsule (10 mg total) by mouth 4 (four) times a day as needed (abd cramps) 60 capsule 08/24/2023 documented in this encounter Discharge Disposition Disposition Code Departure Means Destination Comment s Discharge to home or self care documented in this encounter ED Notes * Kirit Eveertt DO - 08/24/2023 6:51 PM CDT HPI Chief Complaint Patient presents with Abdominal Pain Weakness - Generalized HPI Karly Marques is a 68 y.o. female w/ PMHx including PE, HTN, type II DM, DVT, CVA, breast CA, and CHF presenting to the ED w/ c/o abdominal pain. Pt complains of upper medial abdominal pain that radiates laterally (both sides). Pt notes of onset ~1x week ago. Pt complains of associated abdominal distension onset ~1x week ago. Pt states she feels bloated . Pt notes of lightheadedness onset within the last 24x hours. Pt claims her symptoms worsen when eating or drinking. Pt notes of dysuria onset 1x week ago described as a pressure . Pt reports intermittent diarrhea and chills onset 1x week ago. Pt denies any other symptoms. Pt has no other acute complaints. Patient History: Past Medical History: Diagnosis Date Adiposity obesity Breast CA (HCC) Cancer (CMS/HCC) (HCC) breast CHF (congestive heart failure) (CMS/HCC) (HCC) Depression Depression Diabetes (HCC) Disorder of thyroid Thyroid disease DVT (deep venous thrombosis) (CMS/HCC) (HCC) HX OTHER MEDICAL restless leg syndrome HX OTHER MEDICAL RLS Hypertension Hypertension Osteoarthritis osteoarthritis PE (pulmonary thromboembolism) ([facility]) ([facility]) Sleep apnea Past Surgical History: Procedure Laterality [...] PORT PLACEMENT CHEST >5 YEARS N/A 11/05/2021 SOFT TISSUE ABSCESS DRAIN N/A 12/11/2014 SOFT TISSUE ABSCESS DRAIN N/A 10/24/2014 Family [...] use Substance and Sexual Activity Drug use: Not on file Sexual activity: Defer Alcohol Use: Not At Risk (06/16/2023) Received from [facility] AUDIT-C Frequency of Alcohol Consumption: Never Average Number of Drinks: Patient does not drink Frequency of Binge Drinking: Never No current facility-administered medications for this encounter. Current Outpatient Medications: exemestane (AROMASIN) 25 mg tablet gabapentin (NEURONTIN) 300 mg capsule HYDROcodone-acetaminophen (NORCO) 10-325 mg per tablet insulin glargine 100 unit/mL vial for injection insulin lispro (HumaLOG) 100 unit/mL injection methenamine (HIPREX) 1 gram tablet methocarbamoL (ROBAXIN) 500 mg tablet oxyBUTYnin XL (DITROPAN XL) 15 mg 24 hr tablet rivaroxaban (Xarelto) 20 mg tablet rOPINIRole (REQUIP) 5 mg tablet albuterol HFA (PROVENTIL HFA,VENTOLIN HFA,PROAIR HFA) 90 mcg/actuation inhaler BD Ultra-Fine Short Pen Needle 31 gauge x 5/16 needle blood glucose diagnostic (One[employer] Ultra Test) strip dicyclomine (BENTYL) 10 mg capsule naloxone (NARCAN) 4 mg/actuation spray,non-aerosol ondansetron ODT (ZOFRAN-ODT) 4 mg disintegrating tablet Review of Systems Review of Systems Constitutional: Positive for chills. Negative for fever. Respiratory: Negative for shortness of breath. Cardiovascular: Negative for chest pain. Gastrointestinal: Positive for abdominal distention, abdominal pain, diarrhea, nausea and vomiting. Genitourinary: Positive for dysuria. Neurological: Positive for light-headedness. Negative for seizures and syncope. All systems reviewed and are negative or noncontributory for this patients presentation today otherthan as stated in the HPI . Physical Exam ED Triage Vitals Temp Pulse Resp BP SpO2 08/24/23 1417 08/24/23 1417 08/24/23 1417 08/24/23 1417 08/24/23 1417 37.2 ??C (99 ??F) 84 18 158/86 98 % Temp src Heart Rate Source Patient Position BP Location FiO2 (%) 08/24/23 1417 08/24/23 1800 -- -- -- Oral Monitor Height Height Method Weight Weight Method 08/24/23 14108/24/23 1417 08/24/23 14108/24/23 141 1.549 m (5' 1 ) Stated 123.3 kg (271 lb 13.2 oz) Standing scale Physical Exam Vitals and nursing note reviewed. Constitutional: General: She is not in acute distress. Appearance: She is morbidly obese. She is not ill-appearing. Comments: Pt anxious HENT: Head: Normocephalic and atraumatic. Right Ear: External ear normal. Left Ear: External ear normal. Nose: Nose normal. Eyes: Extraocular Movements: Extraocular movements intact. Conjunctiva/sclera: Conjunctivae normal. Pupils: Pupils are equal, round, and reactive to light. Cardiovascular: Rate and Rhythm: Normal rate and regular rhythm. Pulmonary: Effort: Pulmonary effort is normal. No respiratory distress. Abdominal: General: Abdomen is flat. There is distension. Tenderness: There is abdominal tenderness. There is no guarding or rebound. Comments: Upper medial abdominal tenderness Musculoskeletal: General: Normal range of motion. Cervical back: Normal range of motion and neck supple. Skin: General: Skin is warm and dry. Neurological: General: No focal deficit present. Mental Status: She is alert and oriented to person, place, and time. Psychiatric: Behavior: Behavior normal. Procedures MDM Labs Reviewed URINALYSIS AND REFLEX TO MICROSCOPIC AND CULTURE - Abnormal Result Value Color, ur Yellow Clarity, ur Clear Specific gravity, ur 1.019 pH, urine 5.5 Protein, ur ql Negative Glucose, ur ql Trace (*) Ketones, ur Negative Bilirubin, ur Negative Blood, ur Trace (*) Urobilinogen, ur <2.0 Nitrite, ur Negative Leukocyte esterase, ur Negative UA reflex comment Reflex to microscopic UA will be performed. CBC WITH AUTO DIFFERENTIAL - Abnormal WBC 9.2 Hgb 13.6 Hct 42.9 Plt 295 MPV 9.9 RBC 4.81 MCV 89.2 MCH 28.3 MCHC 31.7 (*) RDW CV 13.7 RDW SD 44.2 NRBC abs 0.00 COMPREHENSIVE METABOLIC PANEL - Abnormal Sodium 136 Potassium, pl 4.2 Chloride 100 CO2 27 Anion gap 9 BUN 15 Creatinine 0.60 Glucose 203 (*) Calcium 10.0 Bilirubin, total 0.5 Protein, pl 8.1 Albumin 3.8 Alk phos 85 ALT 19 AST 17 URINALYSIS, MICROSCOPIC ONLY - Abnormal WBC, ur 0-5 RBC, ur 0-2 Mucous, ur Present (*) Culture Reflex Comment Value: Reflex conditions for urine culture (WBC >10) not met. LIPASE Lipase 23 DIFFERENTIAL AUTO Neutrophil abs 5.1 Imm gran abs 0.0 Lymphocyte abs 3.1 Monocyte abs 0.8 Eosinophil abs 0.2 Basophil abs 0.0 Neutrophil pct 55.3 Imm gran pct 0.3 Lymphocyte pct 33.5 Monocyte pct 8.3 Eosinophil pct 2.4 Basophil pct 0.2 EGFR eGFR >90 POCT GLUCOSE DEVICE Glucose, POC 148 Glucose comment [address] Abdomen Pelvis W Contrast Final Result [...] optimization technique for this examination. CONTRAST TYPE/DOSE: 100mL of IOVERSOL 350 MG IODINE/ML INTRAVENOUS SYRINGE injected via intravenous COMPARISON: 08/12/2023 FINDINGS: LOWER CHEST: Sub 6 mm nodules [...] Giovanni Tavares M.D. AG: BAKARI Report ID: [id number] Reading Location: [id number] BP 140/89 Pulse 77 Temp 37.2 ??C (99 ??F) (Oral) Resp 18 Ht 154.9 cm (5' 1 ) Wt 123.3 kg (271 lb 13.2 oz) SpO2 98% BMI 51.36 kg/m?? [facility] ED Course as of 08/25/23 0518 Time: 08/23 2009 Comment: Pt was informed of lab and scan findings. Pt will be given a prescription for bentyl and zofran. Pt will be given a referral to f/u w/ GI. Pt may be dc. Pt agreeable w/ disposition By: Rojelio Lane Clinical Impression: Abdominal pain, generalized Irritable bowel syndrome, unspecified type This note was prepared by Rojelio Lane, acting as a Scribe for Kirit Everett DO. I electronically signed this note at 5:18 AM on 08/25/2023. I, Kirit Everett DO, personally performed the services described in this documentation, reviewedand edited the documentation which was dictated to the scribe in my presence, and it accurately records my words and actions. Kirit Everett DO 08/25/23 0518 * Marce Canas RN - 08/24/2023 2:15 PM CDT Abd pain with N/V past 2 weeks, dx with diverticulitis. Reports increased weakness past 2 days documented in this encounter Plan of Treatment Not on file documented as of this encounter Procedures Procedure Name Priority Date/Time Associated Diagnosis Comments POCT GLUCOSE DEVICE Routine 08/24/2023 7 :[address] ABDOMEN PELVIS W CONTRAST ED 08/24/2023 7:01 PM CDT EGFR STAT 08/24/2023 2:26 PM CDT DIFFERENTIAL AUTO STAT 08/24/2023 2:2 6 PM CDT URINALYSIS AND REFLEX TO MICROSCOPIC AND CULTURE STAT 08/24/2023 2:26 PM CDT CBC WITH AUTO DIFFERENTIAL STAT 08/24/2023 2:26 PM CDT URINALYSIS, MICROSCOPIC ONLY STAT 08/24/2023 2:26 PM CDT LIPASE STAT 08/24/2023 2:26 PM CDT COMPREHENSIVE METABOLIC PANEL STAT 08/24/2023 2:26 PM CDT documented in this encounter Results * POCT glucose (08/24/2023 7:24 PM CDT) Glucose, POC 148 70 - 199 mg/dL Comment:Testing performed by : [facility], [address] [place] [address]., [id number] Glucose comment 1 Use This Result BCPUJA ANKIT Comment:Testing performed by : [facility], [address] [place] [address]., [id number] Blood 08/24/2023 7:24 PM CDT 08/24/2023 7:24 PM CDT us Kirit Everett DO LAB POCT ORDERABLES - DEVICE F inal Result BCPUJA ANKIT [id number] [facility] Department [place] [address] * CT Abdomen Pelvis W Contrast (08/24/2023 7:01 PM CDT) Anatomical Region Laterality Modality Body N/A Computed Tomogra phy 08/24/2023 7:18 PM CDT Narrative 08/24/2023 7:25 PM CDT EXAM DESCRIPTION: ?? CT ABDOMEN PELVIS W CONTRAST REASON FOR STUDY: ?? Nausea/vomiting, Abdominal pain, acute, nonlocalized ?? Abd pain with N/V past 2 weeks, dx with diverticulitis. ??Reports increased weakness past 2 days ? TECHNIQUE: CT scan of the abdomen and [...] SYRINGE ?? injected via ?? intravenous COMPARISON: 08/12/2023 FINDINGS: LOWER CHEST: ?? Sub 6 mm nodules clustered within the left lung base are grossly unchanged compared to the prior examination. ??These are stable dating back at least to 10/05/2022. ??No specific follow-up is recommended. LIVER: ?? The liver is normal in size. ??Undulating surface appearance of the liver could reflect chronic underlying liver disease. ??No definite liver lesion is seen. GALLBLADDER: ?? Absent. BILE DUCTS: ?? No gross biliary ductal dilatation. SPLEEN: ?? Spleen is normal in size. PANCREAS: ?? The pancreas is normal in size without significant peripancreatic stranding or main ductal dilatation. ?? ADRENALS: ?? Normal. KIDNEYS/URINARY TRACT: ?? The kidneys are normal in size. ??Symmetric in enhancement. ??Prominent right collecting system without overt hydronephrosis. ?? Right renal cyst is unchanged. ??The urinary bladder is distended without substantial thickening or stranding. ?? GI: ?? Sigmoid diverticulosis is noted without CT evidence of acute diverticulitis. ??There is stool throughout the colon which appears nondilated. A diminutive appendix is nondilated. ??The terminal ileum appears normal. ??A 9 mm hyperdensity is noted within the lumen of the ileum which likely represents ingested material (93). ??The small bowel is nondilated without wall thickening or evidence of bowel obstruction. ??The stomach is partially distended. PERITONEUM: ?? No free air. ??No ascites is seen. ??The patient is status post ventral abdominal hernia repair. ??There is scarring along the abdominal wall. ?? No mesenteric lymphadenopathy is seen. RETROPERITONEUM: ?? No retroperitoneal or inguinal lymphadenopathy is seen. REPRODUCTIVE: ?? There is asymmetric prominent left adnexa, unchanged. VASCULATURE: ?? Portal vein is patent. ??The aorta is normal caliber MUSCULOSKELETAL: ?? spinal cord stimulator is noted. ??Chronic bilateral sacroiliitis is noted. OTHER: ?? No other abnormality. IMPRESSION: 1. ?? No gross CT finding to explain the patient's symptoms. 2. ?? Indeterminate prominent left adnexa. ??A follow-up nonemergent outpatient pelvic ultrasound is recommended for further evaluation. 3. ?? Additional chronic findings as above. THIS IS AN ELECTRONICALLY VERIFIED FINAL REPORT 08/24/2023 7:25 PM - Electronically signed by ??Giovanni Tavares M.D. AG: BAKARI D: ??08/24/2023 7:25 PM T: ??08/24/2023 7:25 PM Report ID: [id number] Reading Location: ??[id number] Procedure Note Giovanni Tavares MD - 08/24/2023 EXAM DESCRIPTION: CT ABDOMEN PELVIS W CONTRAST REASON FOR STUDY: Nausea/vomiting, Abdominal pain, acute, nonlocalized Abd pain with N/V past 2 weeks, dx with diverticulitis. Reports increased weakness past 2 days TECHNIQUE: CT scan of the abdomen and pelvis performed with intravenousand without oral contrast using helical scanning technique with dynamic intravenous contrast injection. Reconstructed coronal and sagittal MPRimages reviewed. All images stored on PACS. Automated exposure control was usedas a dose optimization technique for this examination. CONTRAST TYPE/DOSE: 100mL of IOVERSOL 350 MG IODINE/ML INTRAVENOUSSYRINGE injected via intravenous COMPARISON: 08/12/2023 FINDINGS: LOWER CHEST: Sub 6 mm nodules clustered within the left lungbase are grossly unchanged compared to the prior examination. These are stable dating back at least to 10/05/2022. No specific follow-up is recommended. LIVER: The liver is normal in size. Undulating surface appearance ofthe liver could reflect chronic underlying liver disease. No definite liver lesion is seen. GALLBLADDER: Absent. BILE DUCTS: No gross biliary ductal dilatation. SPLEEN: Spleen is normal in size. PANCREAS: The pancreas is normal in size without significantperipancreatic stranding or main ductal dilatation. ADRENALS: Normal. KIDNEYS/URINARY TRACT: The kidneys are normal in size. Symmetric in enhancement. Prominent right collecting system without overthydronephrosis. Right renal cyst is unchanged. The urinary bladder is distended without substantial thickening or stranding. GI: Sigmoid diverticulosis is noted without CT evidence of acute diverticulitis. There is stool throughout the colon which appearsnondilated. A diminutive appendix is nondilated. The terminal ileum appears normal.A 9 mm hyperdensity is noted within the lumen of the ileum which likelyrepresents ingested material (93). The small bowel is nondilated without wallthickening or evidence of bowel obstruction. The stomach is partially distended. PERITONEUM: No free air. No ascites is seen. The patient is statuspost ventral abdominal hernia repair. There is scarring along the abdominalwall. No mesenteric lymphadenopathy is seen. RETROPERITONEUM: No [...] 2. Indeterminate prominent left adnexa. A follow-up nonemergentoutpatient pelvic ultrasound is recommended for further evaluation. 3. Additional chronic findings as above. THIS IS AN ELECTRONICALLY VERIFIED FINAL REPORT 08/24/2023 7:25 PM - Electronically signed by Giovanni Tavares M.D. AG: BAKARI Report ID: [id number] Reading Location: [place] [address] Kirit Everett DO IMG CT PROCEDURES Final Result * eGFR (08/24/2023 2:26 PM CDT) eGFR >90 >=60 mL/min/1. 73 [...] was last reviewed 2021. Testing performed by: [address] [address] Blood 08/24/2023 2:26 PM CDT 08/24/2023 2:43 PM CDT [email or web address] LAB BLOOD ORDERABLES Final Res ult Performing Organization Address [facility] Co de Phone Number MARY JANE [address] [place] [address] * (ABNORMAL) Urinalysis, microscopic only (08/24/2023 2:26 PM CDT) WBC, ur 0-5 0 - 5 /HPF Comment:Testing performed by : [address] [address] RBC, ur 0-2 0 - 2 /HPF MARY JANE Comment:Testing performed by : [address] [address] Mucous, ur Present(A) MARY JANE Comment:Testing performed by : [address] [address] Culture Reflex Comment Reflex conditions for urine culture (WBC >10) not met. MARY JANE Comment:Testing performed by : [address] [address] Urine 08/24/2023 2:26 PM CDT 08/24/2023 2:43 PM CDT [email or web address] LAB URINE ORDERABLES Final Res ult Performing Organization Address [facility] de Phone Number [facility] [address] [facility] [place] [address] * Differential, auto (08/24/2023 2:26 PM CDT) Neutrophil abs 5.1 1.5 - 6.5 K/cumm Comment:Testing performed by : [address] [address] Imm gran abs 0.0 0.0 - 0.1 K/cumm MARY JANE Comment:Testing performed by : [address] [address] Lymphocyte abs 3.1 0.8 - 3.3 K/cumm MARY JANE Comment:Testing performed by : [address] [address] Monocyte abs 0.8 0.2 - 0.8 K/cumm MARY JANE Comment:Testing performed by : [address] [address] Eosinophil abs 0.2 0.0 - 0.5 K/cumm [facility]:Testing performed by : [address] [address] Basophil abs 0.0 0.0 - 0.1 K/cumm [facility] Comment:Testing performed by : [address] [address] Neutrophil pct 55.3 % [facility] Comment: Interpretive Data Percent cell count reference ranges are not reported, since discordance with absolute values may lead to misinterpretation of CBC data. Current Interpretive Data was last revised on 2017. Testing performed by: [address] [address] Imm gran pct 0.3 % [facility] Comment: Interpretive Data Percent cell count reference ranges are not reported, since discordance with absolute values may lead to misinterpretation of CBC data. Current Interpretive Data was last revised on 2017. Testing performed by: [address] [address] Lymphocyte pct 33.5 % [facility] Comment: Interpretive Data Percent cell count reference ranges are not reported, since discordance with absolute values may lead to misinterpretation of CBC data. Current Interpretive Data was last revised on 2017. Testing performed by: [address] [address] Monocyte pct 8.3 % [facility] Comment: Interpretive Data Percent cell count reference ranges are not reported, since discordance with absolute values may lead to misinterpretation of CBC data. Current Interpretive Data was last revised on 2017. Testing performed by: [address] [place] [address] Eosinophil pct 2.4 % MARY JANE Comment: Interpretive Data Percent cell count reference ranges are not reported, since discordance with absolute values may lead to misinterpretation of CBC data. Current Interpretive Data was last revised on 2017. Testing performed by: [address] [address] Basophil pct 0.2 % MARY JANE Comment: Interpretive Data Percent cell count reference ranges are not reported, since discordance with absolute values may lead to misinterpretation of CBC data. Current Interpretive Data was last revised on 2017. Testing performed by: [address] [address] Blood 08/24/2023 2:26 PM CDT 08/24/2023 2:43 PM CDT us Kirit Everett DO LAB BLOOD ORDERABLES Final Res ult MARY JANE [address] [facility] [place] [address] * (ABNORMAL) Urinalysis reflex to microscopic and culture Urine (08/24/2023 2:26 PM CDT) Color, ur Yellow Yellow Comment:Testing performed by : [address] [address] Clarity, ur Clear Clear MARY JANE Comment:Testing performed by : [address] [address] Specific gravity, ur 1.019 1.003 - 1.030 MARY JANE Comment:Testing performed by : [address] [address] pH, urine 5.5 MARY JANE Comment: Interpretive Data ? Urine pH is affected by diet, medications, systemic acid-base disturbances, and renal tubular function. ??pH may affect urinary stone formation. ??For example, urine pH below 6.0 may help reduce the tendency for calcium phosphate stones and pH greater than 6.0 may reduce the tendency for uric acid stone formation. Source: [employer] Current Interpretive Data was last revised on 2017 Testing performed by: [facility], [address] [place] [address], [place]., [address] Protein, ur ql Negative Negative MARY JANE Comment:Testing performed by : [address], [place]., [address] Glucose, ur ql Trace(A) Negative MARY JANE PHAM Comment:Testing performed by : [address], [place]., [address] Ketones, ur Negative Negative MARY JANE Comment:Testing performed by : [address], [place]., [address] Bilirubin, ur Negative Negative MARY JANE Comment:Testing performed by : [address], [place]., [address] Blood, ur Trace(A) Negative MARY JANE Comment:Testing performed by : [address], [place]., [address] Urobilinogen, ur <2.0 <2.0 mg/dL MARY JANE Comment:Testing performed by : [address], [place]., [address] Nitrite, ur Negative Negative MARY JANE Comment:Testing performed by : [address], [place]., [address] Leukocyte esterase, ur Negative Negative MARY JANE Comment:Testing performed by : [address], [place]., [address] UA reflex comment Reflex to microscopic UA will be performed. MARY JANE Comment:Testing performed by : [address] [address] Urine 08/24/2023 2:26 PM CDT 08/24/2023 2:43 PM CDT us Kirit Everett DO LAB MICROBIOLOGY - GENERAL ORD ERABLES Final Result MARY JANE PHAM [address] [facility] Department of Laboratories [place], [place] [id number] * Lipase (08/24/2023 2:26 PM CDT) Lipase 23 10 - 99 Units/L Comment:Testing performed by : [address] [place]., [address] Blood (Blood, Venous) 08/24/2023 2:26 PM CDT 08/24/2023 2:43 PM CDT Kirit Everett DO LAB BLOOD ORDERABLES Final Res ult [facility] [address] [facility] [place] [address] * (ABNORMAL) Comprehensive metabolic panel (08/24/2023 2:26 PM CDT) Sodium 136 135 - 145 mmol/L Comment:Testing performed by : [address] [address] Potassium, pl 4.2 3.3 - 4.9 mmol/L MARY JANE Comment:Testing performed by : [address] [address] Chloride 100 97 - 110 mmol/L MARY JANE Comment:Testing performed by : [address] [address] CO2 27 22 - 32 mmol/L MARY JANE Comment:Testing performed by : [address] [address] Anion gap 9 2 - 15 mmol/L MARY JANE Comment:Testing performed by : [address] [address] BUN 15 6 - 25 mg/dL MARY JANE Comment:Testing performed by : [address] [address] Creatinine 0.60 0.60 - 1.10 mg/dL MARY JANE Comment:Testing performed by : [address] [address] Glucose 203(H) 70 - 199 mg/dL MARY JANE Comment: [...] was last revised 2022. Testing performed by: [address] [address] Calcium 10.0 8.5 - 10.3 mg/dL MARY JANE Comment:Testing performed by : [address] [address] Bilirubin, total 0.5 0.1 - 1.2 mg/dL MARY JANE Comment:Testing performed by : [address] [address] Protein, pl 8.1 6.5 - 8.5 g/dL MARY JANE Comment:Testing performed by : [address] [address] Albumin 3.8 3.5 - 5.0 g/dL MARY JANE Comment:Testing performed by : [address] [address] Alk phos 85 40 - 130 Units/L MARY JANE Comment:Testing performed by : [address] [address] ALT 19 7 - 45 Units/L MARY JANE Comment:Testing performed by : [address] [address] AST 17 10 - 45 Units/L [facility] Comment:Testing performed by : [address] [address] Blood 08/24/2023 2:26 PM CDT 08/24/2023 2:43 PM CDT us Kirit Everett DO LAB BLOOD ORDERABLES Final Res ult MARY JANE PHAM [address] [facility] [place] [address] * (ABNORMAL) CBC with auto differential (08/24/2023 2:26 PM CDT) [facility] WBC 9.2 3.8 - 9.9 K/cumm Comment:Testing performed by : [address], [address] Hgb 13.6 11.9 - 15.5 g/dL MARY JANE Comment:Testing performed by : [address] [address] Hct 42.9 35.6 - 45.5 % MARY JANE Comment:Testing performed by : [address] [address] Plt 295 150 - 400 K/cumm MARY JANE Comment:Testing performed by : [address], [address] MPV 9.9 9.1 - 12.3 fL MARY JANE Comment:Testing performed by : [address], [address] RBC 4.81 3.90 - 5.20 M/cumm MARY JANE Comment:Testing performed by : [address], [address] MCV 89.2 81.3 - 96.4 fL MARY JANE Comment:Testing performed by : [address], [address] MCH 28.3 27.1 - 33.3 pg MARY JANE Comment:Testing performed by : [address] [address] MCHC 31.7(L) 32.3 - 35.7 g/dL MARY JANE Comment:Testing performed by : [address], [address] RDW CV 13.7 11.1 - 14.9 % MARY JANE Comment:Testing performed by : [address], [address] RDW SD 44.2 35.7 - 48.1 fL MARY JANE Comment:Testing performed by : [address], [address] NRBC abs 0.00 0.00 - 0.01 K/cumm MARY JANE Comment:Testing performed by : [address], [address] Blood (Blood, Venous) 08/24/2023 2:26 PM CDT 08/24/2023 2:43 PM CDT us Kirit Everett DO LAB BLOOD ORDERABLES Final Res ult MARY JANE [address] [facility] [place] [address] documented in this encounter Visit Diagnoses Diagnosis Abdominal pain, generalized- Primary Irritable bowel syndrome, unspecified type documented in this encounter Administered Medications Inactive Administered Medications - up to 3 most recent administrations Medication Order MAR Action Action Date Dose Rate Site dicyclomine (BENTYL) tablet 20 mg 20 mg, oral, Once, On Valeri 08/24/23 at 2052, For 1 dose Given 08/24/2023 8:57 PM CDT 20 mg ioversoL (OPTIRAY 350) syringe 100 mL 100 mL, intravenous, Once in imaging, contrast, Starting on Valeri 08/24/23 at 1900, For 1 dose Contrast Given 08/24/2023 7:00 PM CDT 100 mL morphine injection 4 mg 4 mg, intravenous, Administer over 4 Minutes, Once, On Valeri 08/24/23 at 1835, For 1 dose Given 08/24/2023 6:48 PM CDT 4 mg ondansetron (ZOFRAN) injection 4 mg 4 mg, intravenous, Administer over 2 Minutes, Once, On Valeri 08/24/23 at 1835, For 1 dose Given 08/24/2023 6:48 PM CDT 4 mg sodium chloride 0.9% bolus 1,000 mL 1,000 mL, intravenous, Once, On Valeri 08/24/23 at 1835, For 1 dose New Bag 08/24/2023 7:15 PM CDT 1,000 mL documented in this encounter Discontinued Medications Medication Sig Discontinue Reason Start Date End Da te hydroCHLOROthiazide (MICROZIDE) 12.5 mg capsule Take 1 capsule (12.5 mg total) by mouth daily 07/16/2022 08/24/2023 hydrOXYzine (ATARAX) 10 mg tabletIndications:Prurit us of Skin Take 1 tablet (10 mg total) by mouth 2 (two) times a day as needed for itching for up to 7 days 09/14/2022 08/24/2023 methocarbamoL (ROBAXIN) 500 mg tablet Take 1 tablet (500 mg total) by mouth 2 (two) times a day 02/03/2023 08/24/2023 documented as of this encounter Historical Medications * This list may reflect changes made after this encounter. gabapentin (NEURONTIN) 300 mg capsule Take 1 capsule (300 mg total) by mouth 3 (three) times a day 06/20/2023 methocarbamoL (ROBAXIN) 500 mg tablet Take 1 tablet (500 mg total) by mouth 2 (two) times a day as needed for muscle spasms 12/28/2023 added in this encounter Active and Recently Administered Medications Times are shown in CDT. Scheduled Medication Order 08/22/2023 08/23/2023 08/24/2023 dicyclomine (BENTYL) tablet 20 mg (COMPLETED) 20 mg, oral, Once, On Valeri 08/24/23 at 2052, For 1 dose 2056 (Given - Provid er: Dat Morgan RN) morphine injection 4 mg (COMPLETED) 4 mg, intravenous, Administer over 4 Minutes, Once, On Valeri 08/24/23 at 1835, For 1 dose 1847 (Given - Provid er: Kathryn Santana RN) ondansetron (ZOFRAN) injection 4 mg (COMPLETED) 4 mg, intravenous, Administer over 2 Minutes, Once, On Valeri 08/24/23 at 1835, For 1 dose 1847 (Given - Provid er: Kathryn Santana RN) sodium chloride 0.9% bolus 1,000 mL (COMPLETED) 1,000 mL, intravenous, Once, On Valeri 08/24/23 at 1835, For 1 dose 1914 (New Bag - Prov ider: Dat Morgan RN)2054 (Stopped - Provider: Dat Morgan RN) PRN Medication Order 08/22/2023 08/23/2023 08/24/2023 ioversoL (OPTIRAY 350) syringe 100 mL (COMPLETED) 100 mL, intravenous, Once in imaging, contrast, Starting on Valeri 08/24/23 at 1900, For 1 dose 1900 (Contrast Given - Provider: Nehemias Echevarria, RT) documented in this encounter Orders Nursing Count Last Ordered Date First Orde red Date MISCELLANEOUS NURSING CARE ORDER (SPECIFY) 1 08/24/2023 IV Count Last Ordered Date First Orde red Date SALINE LOCK IV 1 08/24/2023 documented in this encounter Care Teams Manager Welding Relationship Specialty Start Date End Date Justen Gale MD 2 [facility] [address] [place] [address] PCP - General 10/09/17 Liu Jerez MD Consulting Physician Gastroenterology 07/28/17 [place] [address] [facility] [address] [place] [address] Consulting Physician Pulmonary Disease 08/03/17 Khris Arthur MD [address] [facility] [address] [place] [address] Medical Oncologist/Training And Development Assistant Medical Oncology 10/23/17 [place] [address] [facility] [address] [place] [address] Surgeon Orthopedic Surgery 10/23/17 [place] [address] [facility] [address] [place] [address] Consulting Physician Pain Management 10/23/17 [place] [address] [facility] [address] [place] [address] Referring Physician General Surgery 01/26/18 [place] [address] [facility] [address] [place] [address] Consulting Physician Neurology 01/26/18 documented as of this encounter
--- OUTSIDE RECORDS SUMMARY | 2024-04-26 04:18 | XMS_ITS | Encounter Summary ---
Author Organization [facility] Address [address] [place] [address] Phone Care Team Providers Care Cigar Binder Name Role Phone Liu Jerez MD Unavailable [phone] Albert Corbin MD Unavailable [phone] Justen Gale MD Primary Care Provider Khris Arthur MD Unavailable [phone] Ko Melendez MD Unavailable John Paul Moyer MD Unavailable Annel Rod MD Unavailable Anali MARSHALL MD, Carlos M. Unavailable Encounter Details Date Type Department Care Team (Late st Contact Info) Description 10/27/2023 Orders Only [facility] Oncology [address] [facility] Advanced Medicine 7th [place] [address] [place] [address] Radha Mcgraht RN Malignant neoplasm of upper-inner quadrant of left breast in female, estrogen receptor positive (HCC) (Primary Dx) Social History Tobacco Use Types Packs/Day Years Used Date Smoking Tobacco: Former Smokeless Tobacco: Never Comments:remote tobacco use Alcohol Use Standard Drinks/Week Comments No 0 (1 standard drink = 0.6 oz pur e alcohol) [facility] Utilities Answer Date Recorded In the past [...] often do you attend chur ch or tenriism services? Patient unable to answer 08/15/2023 Do you belong to any clubs o r organizations such as adventist groups, unions, fraternal or athletic groups, or [...] slept in a long-term (including now)? No 08/15/2023 Personal Safety Answer Date Recorded Have you ever been in or are you currently in a harmful physical or emotional relationship or is someone making you feel afraid or unsafe? 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 Gender Identity Not on file Sexual Orientation Not on file documented as of this encounter Plan of Treatment Not on file documented as of this encounter Visit Diagnoses Diagnosis Malignant neoplasm of upper-inner quadrant of left breast in female, estrogen receptor positive (HCC)- Primary documented in this encounter Orders Appointment Requests Count Last Ordered Date Fi rst Ordered Date INFUSION APPT REQUEST 60 MIN 1 11/21/2023 documented in this encounter Care Teams Cigar Binder Relationship Specialty Start Date End Date Justen Gale MD 2 [facility] [address] [place] [address] PCP - General 10/09/17 Liu Jerez MD Consulting Physician Gastroenterology 07/28/17 [place] [address] [facility] [address] [place] [id number] Consulting Physician Pulmonary Disease 08/03/17 Khris Arthur MD [address] [facility] [address] [place] [address] Medical Oncologist/Day Camp Unit Leader Medical Oncology 10/23/17 [place] [address] [facility] [address] [place] [address] Surgeon Orthopedic Surgery 10/23/17 [place] [address] [facility] [address] [place] [address] Consulting Physician Pain Management 10/23/17 [place] [address] [facility] [address] [place] [address] Referring Physician General Surgery 01/26/18 [place] [address] [facility] [address] [place] [address] Consulting Physician Neurology 01/26/18 documented as of this encounter
--- OUTSIDE RECORDS SUMMARY | 2024-04-26 04:18 | XMS_ITS | Encounter Summary ---
Author Organization [facility] Healthcare Address [address] [place] [address] Care Team Providers Care Mender [employer]s Name Role Phone Liu Jerez MD Unavailable Albert Corbin MD Unavailable [phone] Justen Gale MD Primary Care Provider Khris Arthur MD Unavailable [phone] Ko Melendez MD Unavailable John Paul Moyer MD Unavailable Annel Rod MD Unavailable Anali MARSHALL MD, Carlos M. Unavailable Reason for Visit * Reason Comments Abdominal Pain Encounter Details Date Type Department Care Team (Late st Contact Info) Description 10/31/2023 4:02 PM CDT - 10/31/2023 7:35 PM CDT Emergency [facility] Emergency Department [facility] [place] [address] Melvin Sy MD [facility] [place] [address] [place] [address] Abdominal pain (Primary Dx); Nausea and vomiting, unspecified vomiting type Discharge Disposition: Discharge to home or self care Social History Tobacco Use Types Packs/Day Years Used Date Smoking Tobacco: Former Smokeless Tobacco: Never Comments:remote tobacco use Alcohol Use Standard Drinks/Week Comments No 0 (1 standard drink = 0.6 oz pur e alcohol) [facility] Utilities Answer Date Recorded In the past 12 months has [employer], gas, oil, or water [employer] threatened to shut off services in your [...] often do you attend [facility] or jew services? Patient unable to answer 08/15/2023 Do you belong to any clubs o r organizations such as mandaeism groups, unions, fraternal or athletic groups, or [...] on file Legal Sex Female 12:24 AM [employer] Gender Identity Not on file Sexual Orientation Not on file documented as of this encounter Last Filed Vital Signs Vital Sign Reading Time Taken Comments Blood Pressure 143/93 10/31/2023 6:38 PM CDT Pulse 66 10/31/2023 6:38 PM CDT Temperature 37 ??C (98.6 ??F) 10/31/2023 3:45 PM CDT Respiratory Rate 16 10/31/2023 6:38 PM CDT Oxygen Saturation 99% 10/31/2023 6:38 PM CDT Inhaled Oxygen Concentration - - Weight 119.7 kg (263 lb 14.3 oz) 10/31/2023 3:45 PM CDT Height 154.9 cm (5' 1 ) 10/31/2023 3:45 PM CDT Body Mass Index 49.86 10/31/2023 3:45 PM CDT documented in this encounter Discharge Instructions * Discharge Instructions* Melvin Sy MD - 10/31/2023 6:26 PM CDT Karly, your test today were reassuring. Your symptoms today may be manifestation of gastroparesis. Please continue all daily medicines follow up close with primary care provider. documented in this encounter Medications at Time of Discharge albuterol HFA (PROVENTIL HFA,VENTOLIN HFA,PROAIR HFA) 90 mcg/actuation inhaler Inhale 2 puffs every 6 (six) hours as needed for wheezing or shortness of breath 04/19/2021 BD Ultra-Fine Short Pen Needle 31 gauge x 5/16 needle USE 6 TIMES DAILY DIRECTED 06/24/2021 blood glucose diagnostic (OneTouch Ultra Test) strip [...] skin daily Takes in the morning 08/18/2023 methenamine (HIPREX) 1 gram tablet Take 1 [...] total) by mouth nightly Taken at 2100 HYDROcodone-acetamin ophen (NORCO) 5-325 mg per tabletIndications:Pa in Take 1 tablet by mouth every 6 (six) hours as needed for pain for up to 10 doses 10 tablet 10/31/2023 insulin lispro (HumaLOG) 100 unit/mL injection Inject [...] Refills Last Filled Start Date End Date HYDROcodone-acetam inophen (NORCO) 5-325 mg per tabletIndications: Pain Take 1 tablet by mouth every 6 (six) hours as needed for pain for up to 10 doses 10 tablet 10/31/2023 12/28/2023 documented in this encounter Discharge Disposition Disposition Code Departure Means Destination Comment s Discharge to home or self care documented in this encounter ED Notes * Melvin Sy MD - 10/31/2023 4:09 PM CDT HPI Chief Complaint Patient presents with Abdominal Pain HPI 12:08 PM Karly Marques is a 68 y.o. female presenting to the ED c/o abdominal pain. Symptoms ongoing for approximately 3 hours. There is associated nausea vomiting. Pain level 6/10. She denies chest pain. She had shortness of breathing during the onset of pain earlier in the afternoon. She has a history of multiple abdominal surgeries and gastroparesis. Patient History: Past Medical History: Diagnosis Date [...] MASTECTOMY OOPHORECTOMY ovary removed OTHER SURGICAL HISTORY 2012 : Right Total Knee Replacement OTHER SURGICAL HISTORY R ovary removed PORT PLACEMENT CHEST >5 YEARS N/A 11/05/2021 SOFT TISSUE ABSCESS DRAIN N/A 12/11/2014 US [...] Use: Not At Risk (06/16/2023) Received from [facility] [employer], [facility] [employer] AUDIT-C Frequency of Alcohol Consumption: Never Average Number of Drinks: Patient does not drink Frequency of Binge Drinking: Never No current facility-administered medications for this encounter. Current Outpatient Medications: albuterol HFA (PROVENTIL HFA,VENTOLIN HFA,PROAIR HFA) 90 mcg/actuation inhaler BD Ultra-Fine Short Pen Needle 31 gauge x 5/16 needle blood glucose diagnostic (OneTouch Ultra Test) strip dicyclomine (BENTYL) 10 mg capsule exemestane (AROMASIN) 25 mg tablet gabapentin (NEURONTIN) 300 mg capsule HYDROcodone-acetaminophen (NORCO) 5-325 mg per tablet insulin glargine 100 unit/mL vial for injection insulin lispro (HumaLOG) 100 unit/mL injection methocarbamoL (ROBAXIN) 500 mg tablet naloxone (NARCAN) 4 mg/actuation spray,non-aerosol ondansetron ODT (ZOFRAN-ODT) 4 mg disintegrating tablet oxyBUTYnin XL (DITROPAN XL) 15 mg 24 hr tablet rivaroxaban (Xarelto) 20 mg tablet rOPINIRole (REQUIP) 5 mg tablet Review of Systems Review of Systems All other systems reviewed and are negative. All systems reviewed and are neg or non contributory for this patients presentation today other than as stated in the HPI . Physical Exam ED Triage Vitals [10/31/23 1545] Temp Pulse Resp BP SpO2 37 ??C (98.6 ??F) 100 20 (!) 174/96 100 % Temp src Heart Rate Source Patient Position BP Location FiO2 (%) -- -- -- -- -- Height Height Method Weight Weight Method 1.549 m (5' 1 ) Stated 119.7 kg (263 lb 14.3 oz) Standing scale Physical Exam Vitals reviewed. HENT: Head: Normocephalic. Mouth/Throat: Mouth: Mucous membranes are moist. Pharynx: Oropharynx is clear. Eyes: Pupils: Pupils are equal, round, and reactive to light. Cardiovascular: Rate and Rhythm: Normal rate and regular rhythm. Heart sounds: Normal heart sounds. Pulmonary: Breath sounds: Normal breath sounds. Abdominal: Palpations: Abdomen is soft. Musculoskeletal: Cervical back: Neck supple. Right lower leg: No edema. Left lower leg: No edema. Neurological: General: No focal deficit present. Mental Status: She is alert. Psychiatric: Mood and Affect: Mood normal. Procedures MDM Labs Reviewed URINALYSIS AND REFLEX TO MICROSCOPIC AND CULTURE - Abnormal Result Value Color, ur Yellow Clarity, ur Clear Specific gravity, ur 1.020 pH, urine 5.5 Protein, ur ql Negative Glucose, ur ql 1+ (*) Ketones, ur Negative Bilirubin, ur Negative Blood, ur 1+ (*) Urobilinogen, ur <2.0 Nitrite, ur Negative Leukocyte esterase, ur Negative UA reflex comment Reflex to microscopic UA will be performed. CBC WITH AUTO DIFFERENTIAL - Abnormal WBC 10.0 (*) Hgb 13.2 Hct 41.1 Plt 268 MPV 9.7 RBC 4.59 MCV 89.5 MCH 28.8 MCHC 32.1 (*) RDW CV 13.8 RDW SD 45.1 NRBC abs 0.00 COMPREHENSIVE METABOLIC PANEL - Abnormal Sodium 139 Potassium, pl 4.3 Chloride 104 CO2 24 Anion gap 11 BUN 14 Creatinine 0.60 Glucose 201 (*) Calcium 9.7 Bilirubin, total 0.5 Protein, pl 8.2 Albumin 3.9 Alk phos 89 ALT 16 AST 19 URINALYSIS, MICROSCOPIC ONLY - Abnormal WBC, ur 6-10 (*) RBC, ur 0-2 Epithelial cells, squamous, ur 1-5 Bacteria, ur 1+ (*) Mucous, ur Present (*) Culture Reflex Comment Value: Reflex conditions for urine culture (WBC >10) not met. LIPASE Lipase 18 DIFFERENTIAL AUTO Neutrophil abs 6.4 Imm gran abs 0.1 Lymphocyte abs 2.6 Monocyte abs 0.7 Eosinophil abs 0.1 Basophil abs 0.0 Neutrophil pct 64.4 Imm gran pct 0.5 Lymphocyte pct 26.2 Monocyte pct 7.2 Eosinophil pct 1.3 Basophil pct 0.4 EGFR eGFR >90 CT Abdomen Pelvis W Contrast Final Result XR Chest 1 Vw Portable Final Result BP 143/93 Pulse 66 Temp 37 ??C (98.6 ??F) Resp 16 Ht 154.9 cm (5' 1 ) Wt 119.7 kg (263 lb14.3 oz) SpO2 99% BMI 49.86 kg/m?? MDM Amount and/or Complexity of Data Reviewed Clinical lab tests: reviewed Tests in the radiology section of CPT??: reviewed ED Course as of 11/01/23 1208 Time: 10/30 1618 Comment: EKG 1617 normal sinus rhythm rate [address] elevation or depression By: Melvin Sy MD Time: 10/30 1637 Comment: EXAM DESCRIPTION: XR CHEST 1 VIEW REASON FOR STUDY: dyspnea Patient states that she has had abdominal pain since 1230p with N/V. Denies any diarrhea. States that she also feels SOB when the pain happens. Denies taking any at home medications for symptoms. TECHNIQUE: Single radiographic view(s) of the chest. COMPARISON: Chest radiograph 08/14/2023 FINDINGS: LUNGS: No focal opacity, pleural effusion, or pneumothorax. HEART/MEDIASTINUM: Cardiomegaly mediastinal and hilar contours appear normal. LINES/TUBES: None. BONES: No acute osseous abnormality. IMPRESSION: No acute cardiopulmonary abnormality. By: Melvin Sy MD Time: 10/30 1808 Comment: CT abd/pelvis: IMPRESSION: No acute finding. By: Melvin Sy MD Time: 10/30 1818 Comment: Patient with no acute findings. Suspect this is acute exacerbation of chronic abdominal conditions. Patient does have history of gastroparesis. By: Melvin Sy MD This examination was transcribed using the [employer] voice recognition system without human cottrell operator. In an effort to expedite patient care, this report has not been adjusted for typographical, grammatical, and syntax by a trained medical sales associate. Clinical Impression: Abdominal pain Nausea and vomiting, unspecified vomiting type Melvin Sy MD 11/01/23 1208 * Aislinn Holguin RN - 10/31/2023 3:43 PM CDT Patient states that she has had abdominal pain since 1230p with N/V. Denies any diarrhea. States that she also feels SOB when the pain happens. Denies taking any at home medications for symptoms. documented in this encounter Plan of Treatment Not on file documented as of this encounter Procedures Procedure Name Priority Date/Time Associated Diagnosis Comments CT ABDOMEN PELVIS W CONTRAST ED 10/31/2023 5:15 PM CDT XR CHEST 1 VIEW ED 10/31/2023 4:22 PM CDT ECG 12-LEAD STAT 10/31/2023 4:17 PM CDT URINALYSIS AND REFLEX TO MICROSCOPIC AND CULTURE STAT 10/31/2023 4:01 PM CDT URINALYSIS, MICROSCOPIC ONLY STAT 10/31/2023 4:01 PM CDT EGFR STAT 10/31/2023 3:57 PM CDT DIFFERENTIAL AUTO STAT 10/31/2023 3:5 7 PM CDT CBC WITH AUTO DIFFERENTIAL STAT 10/31/2023 3:57 PM CDT LIPASE STAT 10/31/2023 3:57 PM CDT COMPREHENSIVE METABOLIC PANEL STAT 10/31/2023 3:57 PM CDT documented in this encounter Results * CT Abdomen Pelvis W Contrast (10/31/2023 5:15 PM CDT) Anatomical Region Laterality Modality Body N/A Computed Tomogra phy 10/31/2023 5:32 PM CDT Narrative 10/31/2023 5:45 PM CDT EXAM DESCRIPTION: ?? CT ABDOMEN PELVIS W CONTRAST REASON FOR STUDY: ?? Abdominal infection suspected ?? Patient states that she has had abdominal pain since 1230p with N/V. Denies any diarrhea. States that she also feels SOB when the pain happens. ? TECHNIQUE: CT scan of the abdomen [...] ?? injected via ?? intravenous COMPARISON: ?? 09/18/2023 FINDINGS: LOWER CHEST: ?? No significant pulmonary abnormalities. No effusion. ?? Several small nodules at the left lung base medially seen near image number 32 are stable when compared with the prior studies including 10/15/2021. ?? Stability over a time of 2 years is consistent with a benignity. LIVER: ?? Normal size. ??No identified cystic or solid masses. GALLBLADDER: ?? Unremarkable BILE DUCTS: ?? No intrahepatic or extrahepatic ductal dilatation. SPLEEN: ?? Normal size. ??No focal lesions. PANCREAS: ?? No identified cystic or solid masses. No significant calcifications. No adjacent inflammation or peripancreatic fluid collections. Pancreatic duct not dilated. ?? ADRENALS: ?? Normal. KIDNEYS/URINARY TRACT: ?? No identified significant cystic or solid masses. No visualized stones. No hydronephrosis or hydroureter. Symmetric enhancement. ? Urinary bladder is unremarkable. GI: ?? No dilated bowel loops. No obvious wall thickening. ??Normal appendix. ?? No significant diverticular disease. PERITONEUM: ?? No ascites or free air. RETROPERITONEUM: ?? No mass or adenopathy. REPRODUCTIVE: ?? No significant abnormality. VASCULATURE: ?? No abdominal aortic aneurysm. MUSCULOSKELETAL: ?? No significant abnormality. ?? Implanted device of the lower thoracic spine is noted. OTHER: ?? Surgical repair of the lower anterior abdominal wall is noted. IMPRESSION: No acute finding. THIS IS AN ELECTRONICALLY VERIFIED FINAL REPORT 10/31/2023 5:45 PM - Electronically signed by ??Patrick Zhou M.D. KH: KATH D: ??10/31/2023 5:45 PM T: ??10/31/2023 5:45 PM Report ID: [id number] Reading Location: ??[id number] Procedure Note Patrick Zhou MD - 10/31/2023 EXAM DESCRIPTION: CT ABDOMEN PELVIS W CONTRAST REASON FOR STUDY: Abdominal infection suspected Patient states that she has had abdominal pain since 1230p with N/V.Denies any diarrhea. States that she also feels SOB when the pain happens. TECHNIQUE: CT scan of the abdomen and pelvis performed with intravenousand without oral contrast using helical scanning technique with dynamic intravenous contrast injection. Reconstructed coronal and sagittal MPRimages reviewed. All images stored on PACS. Automated exposure control was usedas a dose optimization technique for this examination. CONTRAST TYPE/DOSE: 100mL of IOVERSOL 350 MG IODINE/ML INTRAVENOUSSYRINGE injected via intravenous COMPARISON: 09/18/2023 FINDINGS: LOWER CHEST: No significant pulmonary abnormalities. Noeffusion. Several small nodules at the left lung base medially seen near imagenumber 32 are stable when compared with the prior studies including 10/15/2021. Stability over a time of 2 years is consistent with a benignity. LIVER: Normal size. No identified cystic or solid masses. GALLBLADDER: Unremarkable BILE DUCTS: No intrahepatic or extrahepatic ductal dilatation. SPLEEN: Normal size. No focal lesions. PANCREAS: No identified cystic or solid masses. No significant calcifications. No adjacent inflammation or peripancreatic fluidcollections. Pancreatic duct not dilated. ADRENALS: Normal. KIDNEYS/URINARY TRACT: No identified significant cystic or solid masses.No visualized stones. No hydronephrosis or hydroureter. Symmetricenhancement. Urinary bladder is unremarkable. GI: No dilated bowel loops. No obvious wall thickening. Normalappendix. No significant diverticular disease. PERITONEUM: No ascites or free air. RETROPERITONEUM: No mass or adenopathy. REPRODUCTIVE: No significant abnormality. VASCULATURE: No abdominal aortic aneurysm. MUSCULOSKELETAL: No significant abnormality. Implanted device of thelower thoracic spine is noted. OTHER: Surgical repair of the lower anterior abdominal wall is noted. IMPRESSION: No acute finding. THIS IS AN ELECTRONICALLY VERIFIED FINAL REPORT 10/31/2023 5:45 PM - Electronically signed by Patrick Zhou M.D. KH: KATH Report ID: [id number] Reading Location: [place] [address] us Melvin Sy MD IMG CT PROCEDURES Deann l Result * XR Chest 1 Vw Portable (10/31/2023 4:22 PM CDT) Anatomical Region Laterality Modality Body, Chest N/A Computed Radiogr aphy 10/31/2023 4:32 PM CDT Narrative 10/31/2023 4:33 PM CDT EXAM DESCRIPTION: XR CHEST 1 VIEW REASON FOR STUDY: dyspnea ?Patient states that she has had abdominal pain since 1230p with N/V. ??Denies any diarrhea. States that she also feels SOB when the pain happens. Denies taking any at home medications for symptoms. ? TECHNIQUE: Single ??radiographic view(s) of the chest. COMPARISON: Chest radiograph 08/14/2023 FINDINGS: LUNGS: ??No focal opacity, pleural effusion, or pneumothorax. ?? HEART/MEDIASTINUM: ??Cardiomegaly mediastinal and hilar contours appear normal. LINES/TUBES: ??None. BONES: ??No acute osseous abnormality. IMPRESSION: No acute cardiopulmonary abnormality. THIS IS AN ELECTRONICALLY VERIFIED FINAL REPORT 10/31/2023 4:33 PM - Electronically signed by ??Olinda Bernal M.D. FT: BRONSON D: ??10/31/2023 4:33 PM T: ??10/31/2023 4:33 PM Report ID: [id number] Reading Location: ??[id number] Procedure Note Olinda Wells MD - 10/31/2023 EXAM DESCRIPTION: XR CHEST 1 VIEW REASON FOR STUDY: dyspnea Patient states that she has had abdominal pain since 1230p with N/V.Denies any diarrhea. States that she also feels SOB when the pain happens. Denies taking any at home medications for symptoms. TECHNIQUE: Single radiographic view(s) of the chest. COMPARISON: Chest radiograph 08/14/2023 FINDINGS: LUNGS: No focal opacity, pleural effusion, or pneumothorax. HEART/MEDIASTINUM: Cardiomegaly mediastinal and hilar contours appearnormal. LINES/TUBES: None. BONES: No acute osseous abnormality. IMPRESSION: No acute cardiopulmonary abnormality. THIS IS AN ELECTRONICALLY VERIFIED FINAL REPORT 10/31/2023 4:33 PM - Electronically signed by Olinda Bernal M.D. FT: FT Report ID: [id number] Reading Location: [id number] us Melvin Sy MD IMG XR PROCEDURES Deann l Result * ECG 12 lead (10/31/2023 4:17 PM CDT) Pathologist [facility] Ventricular Rate EKG/Min 79 BPM [facility] Atrial Rate 79 BPM [facility] TX-Interval (MSEC) 144 ms [facility] QRS-Interval (MSEC) 88 ms [facility] QT-Interval (MSEC) 380 ms [facility] QTc 435 ms [facility] P [place] 43 degrees [facility] R [place] -4 degrees [facility] T [place] 37 degrees [facility] Diagnosis Normal sinus rhythm Possible Left atrial enlargement Borderline ECG When compared with ECG of 02-SEP-2023 23:58, No significant change was found Confirmed by WILLIAMS HAMMOND M.D. ([id number]) on 10/31/2023 8:34:15 PM [facility] 10/31/2023 4:17 PM CDT 10/31/2023 8:34 PM CDT us Melvin Sy MD ECG ORDERABLES Final Result Performing Organization Address [facility] de Phone Number [facility] * (ABNORMAL) Urinalysis, microscopic only (10/31/2023 4:01 PM CDT) WBC, ur 6-10(A) 0 - 5 /HPF Comment:Testing performed by : [address] [address] RBC, ur 0-2 0 - 2 /HPF MARY JANE Comment:Testing performed by : [address] [address] Epithelial cells, squamous, ur 1-5 0 - 5 /HPF MARY JANE Comment:Testing performed by : [address] [address] Bacteria, ur 1+(A) MARY JANE Comment:Testing performed by : [address] [address] Mucous, ur Present(A) MARY JANE Comment:Testing performed by : [address] [address] Culture Reflex Comment Reflex conditions for urine culture (WBC >10) not met. MARY JANE Comment:Testing performed by : [address] [address] Urine 10/31/2023 4:01 PM CDT 10/31/2023 4:05 PM CDT us [place] [facility] LAB URINE ORDERABLES Deann l Result Performing Organization Address City/[facility]/ZIP Co de Phone Number [facility] [address] [facility] Department [place] [address] * (ABNORMAL) Urinalysis reflex to microscopic and culture Urine (10/31/2023 4:01 PM CDT) Color, ur Yellow Yellow Comment:Testing performed by : [address] [address] Clarity, ur Clear Clear MARY JANE Comment:Testing performed by : [address] [address] Specific gravity, ur 1.020 1.003 - 1.030 MARY JANE Comment:Testing performed by : [address] [address] pH, urine 5.5 MARY JANE Comment: Interpretive Data ? Urine pH is affected by diet, medications, systemic acid-base disturbances, and renal tubular function. ??pH may affect urinary stone formation. ??For example, urine pH below 6.0 may help reduce the tendency for calcium phosphate stones and pH greater than 6.0 may reduce the tendency for uric acid stone formation. Source: [facility] Prized Current Interpretive Data was last revised on 2017 Testing performed by: [address] [address] Protein, ur ql Negative Negative MARY JANE Comment:Testing performed by : [address] [address] Glucose, ur ql 1+(A) Negative MARY JANE Comment:Testing performed by : [address] [address] Ketones, ur Negative Negative MARY JANE Comment:Testing performed by : [address] [address] Bilirubin, ur Negative Negative MARY JANE Comment:Testing performed by : [address] [address] Blood, ur 1+(A) Negative MARY JANE Comment:Testing performed by : [address] [address] Urobilinogen, ur <2.0 <2.0 mg/dL MARY JANE Comment:Testing performed by : [address] [address] Nitrite, ur Negative Negative MARY JANE Comment:Testing performed by : [address] [address] Leukocyte esterase, ur Negative Negative MARY JANE Comment:Testing performed by : [address] [address] UA reflex comment Reflex to microscopic UA will be performed. MARY JANE Comment:Testing performed by : [address] [place]., [address] Urine 10/31/2023 4:01 PM CDT 10/31/2023 4:05 PM CDT us Melvin Sy MD LAB MICROBIOLOGY - GEN ERAL ORDERABLES Final Result MARY JANE [address] [facility] Department [place] [address] * eGFR (10/31/2023 3:57 PM CDT) eGFR >90 >=60 mL/min/1. 73 [...] reviewed 2021. Testing performed by: [facility], [address] [place] [address]., [id number] Blood 10/31/2023 3:57 PM CDT 10/31/2023 4:05 PM CDT us [place] [facility] LAB BLOOD ORDERABLES Deann bowman Result MARY JANE [address] [facility] Department [place] [address] * Differential, auto (10/31/2023 3:57 PM CDT) Neutrophil abs 6.4 1.5 - 6.5 K/cumm Comment:Testing performed by : [address] [address] Imm gran abs 0.1 0.0 - 0.1 K/cumm MARY JANE Comment:Testing performed by : [address] [address] Lymphocyte abs 2.6 0.8 - 3.3 K/cumm MARY JANE Comment:Testing performed by : [address] [address] Monocyte abs 0.7 0.2 - 0.8 K/cumm MARY JANE Comment:Testing performed by : [address] [address] Eosinophil abs 0.1 0.0 - 0.5 K/cumm MARY JANE Comment:Testing performed by : [address] [address] Basophil abs 0.0 0.0 - 0.1 K/cumm MARY JANE Comment:Testing performed by : [address] [address] Neutrophil pct 64.4 % MARY JANE Comment: Interpretive Data Percent cell count reference ranges are not reported, since discordance with absolute values may lead to misinterpretation of CBC data. Current Interpretive Data was last revised on 2017. Testing performed by: [address] [address] Imm gran pct 0.5 % MARY JANE Comment: Interpretive Data Percent cell count reference ranges are not reported, since discordance with absolute values may lead to misinterpretation of CBC data. Current Interpretive Data was last revised on 2017. Testing performed by: [address] [address] Lymphocyte pct 26.2 % [facility] Comment: Interpretive Data Percent cell count reference ranges are not reported, since discordance with absolute values may lead to misinterpretation of CBC data. Current Interpretive Data was last revised on 2017. Testing performed by: [address] [address] Monocyte pct 7.2 % [facility] Comment: Interpretive Data Percent cell count reference ranges are not reported, since discordance with absolute values may lead to misinterpretation of CBC data. Current Interpretive Data was last revised on 2017. Testing performed by: [address] [address] Eosinophil pct 1.3 % [facility] Comment: Interpretive Data Percent cell count reference ranges are not reported, since discordance with absolute values may lead to misinterpretation of CBC data. Current Interpretive Data was last revised on 2017. Testing performed by: [address] [address] Basophil pct 0.4 % [facility] Comment: Interpretive Data Percent cell count reference ranges are not reported, since discordance with absolute values may lead to misinterpretation of CBC data. Current Interpretive Data was last revised on 2017. Testing performed by: [address] [address] Blood 10/31/2023 3:57 PM CDT 10/31/2023 4:05 PM CDT Marin MCKEON LAB BLOOD ORDERABLES Deann l Result MARY JANE [address] [facility] Department [place] [address] * Lipase (10/31/2023 3:57 PM CDT) Lipase 18 10 - 99 Units/L Comment:Testing performed by : [address] [address] Blood (Blood, Venous) 10/31/2023 3:57 PM CDT 10/31/2023 4:05 PM CDT us Melvin Sy MD LAB BLOOD ORDERABLES F inal Result [facility] [facility] Department [place] [address] * (ABNORMAL) Comprehensive metabolic panel (10/31/2023 3:57 PM CDT) Sodium 139 135 - 145 mmol/L Comment:Testing performed by : [address] [address] Potassium, pl 4.3 3.3 - 4.9 mmol/L MARY JANE Comment:Testing performed by : [address] [address] Chloride 104 97 - 110 mmol/L MARY JANE Comment:Testing performed by : [address] [address] CO2 24 22 - 32 mmol/L MARY JANE Comment:Testing performed by : [address] [address] Anion gap 11 2 - 15 mmol/L MARY JANE Comment:Testing performed by : [address] [address] BUN 14 6 - 25 mg/dL MARY JANE Comment:Testing performed by : [address] [address] Creatinine 0.60 0.60 - 1.10 mg/dL MARY JANE Comment:Testing performed by : [address] [address] Glucose 201(H) 70 - 199 mg/dL MARY JANE Comment: [...] classification and Diagnosis of Diabetes Diabetes Care 2022; 46: S19-S40. Current interpretive data was last revised 2022. Testing performed by: [address] [address] Calcium 9.7 8.5 - 10.3 mg/dL MARY JANE Comment:Testing performed by : [address] [address] Bilirubin, total 0.5 0.1 - 1.2 mg/dL MARY JANE Comment:Testing performed by : [address] [address] Protein, pl 8.2 6.5 - 8.5 g/dL MARY JANE Comment:Testing performed by : [address], [address] Albumin 3.9 3.5 - 5.0 g/dL MARY JANE Comment:Testing performed by : [address], [address] Alk phos 89 40 - 130 Units/L MARY JANE Comment:Testing performed by : [address] [address] ALT 16 7 - 45 Units/L MARY JANE Comment:Testing performed by : [address] [address] AST 19 10 - 45 Units/L MARY JANE Comment:Testing performed by : [address] [address] Blood 10/31/2023 3:57 PM CDT 10/31/2023 4:05 PM CDT us Melvin Sy MD LAB BLOOD ORDERABLES F inal Result [facility] [address] [facility] Department of Laboratories [place], [place] [id number] * (ABNORMAL) CBC with auto differential (10/31/2023 3:57 PM CDT) [facility] WBC 10.0(H) 3.8 - 9.9 K/cumm Comment:Testing performed by : [address], [address] Hgb 13.2 11.9 - 15.5 g/dL MARY JANE Comment:Testing performed by : [address] [address] Hct 41.1 35.6 - 45.5 % MARY JANE Comment:Testing performed by : [address] [address] Plt 268 150 - 400 K/cumm MARY JANE Comment:Testing performed by : [address] [address] MPV 9.7 9.1 - 12.3 fL MARY JANE Comment:Testing performed by : [address], [address] RBC 4.59 3.90 - 5.20 M/cumm MARY JANE Comment:Testing performed by : [address] [address] MCV 89.5 81.3 - 96.4 fL MARY JANE Comment:Testing performed by : [address] [address] MCH 28.8 27.1 - 33.3 pg MARY JANE Comment:Testing performed by : [address], [address] MCHC 32.1(L) 32.3 - 35.7 g/dL MARY JANE Comment:Testing performed by : [address] [address] RDW CV 13.8 11.1 - 14.9 % MARY JANE Comment:Testing performed by : [address], [address] RDW SD 45.1 35.7 - 48.1 fL MARY JANE Comment:Testing performed by : [address] [address] NRBC abs 0.00 0.00 - 0.01 K/cumm MARY JANE Comment:Testing performed by : [address] [address] Blood (Blood, Venous) 10/31/2023 3:57 PM CDT 10/31/2023 4:05 PM CDT us Melvin yS MD LAB BLOOD ORDERABLES F inal Result [facility] [address] [facility] Department [place] [address] documented in this encounter Visit Diagnoses Diagnosis Abdominal pain- Primary Abdominal pain, unspecified site Nausea and vomiting, unspecified vomiting type documented in this encounter Administered Medications Inactive Administered Medications - up to 3 most recent administrations Medication Order MAR Action Action Date Dose Rate Site famotidine (PEPCID) injection 20 mg 20 mg, intravenous, Administer over 2 Minutes, Once, On Mon10/31/23 at 1826, For 1 dose Given 10/31/2023 6:31 PM CDT 20 mg fentaNYL (SUBLIMAZE) preservative free injection 50 mcg 50 mcg, intravenous, Once, On Mon10/31/23 at 1639, For 1 dose Given 10/31/2023 4:49 PM CDT 50 mcg fentaNYL (SUBLIMAZE) preservative free injection 50 mcg 50 mcg, intravenous, Once, On Mon10/31/23 at 1812, For 1 dose Given 10/31/2023 6:17 PM CDT 50 mcg ioversoL (OPTIRAY 350) syringe 100 mL 100 mL, intravenous, Once in imaging, contrast, Starting on Mon10/31/23 at 1709, For 1 dose Contrast Given 10/31/2023 5:15 PM CDT 100 mL ondansetron (ZOFRAN) injection 4 mg 4 mg, intravenous, Administer over 2 Minutes, Once, On Mon10/31/23 at 1639, For 1 dose, Indications: Nausea, VomitingIndications:Nausea ,Vomiting Given 10/31/2023 4:47 PM CDT 4 mg ondansetron (ZOFRAN) injection 4 mg 4 mg, intravenous, Administer over 2 Minutes, Once, On Mon10/31/23 at 1812, For 1 dose, Indications: Nausea, VomitingIndications:Nausea ,Vomiting Given 10/31/2023 6:15 PM CDT 4 mg sodium chloride 0.9% bolus 1,000 mL 1,000 mL, intravenous, at 1,000 mL/hr, Administer over 1 Hours, Once, On Mon10/31/23 at 1639, For 1 dose New Bag 10/31/2023 4:47 PM CDT 1,000 mL 1000 mL/hr documented in this encounter Discontinued Medications Medication Sig Discontinue Reason Start Date End Da te HYDROcodone-acetaminophe n (NORCO) 10-325 mg per tablet Take 1 tablet by mouth every 6 (six) hours 08/20/2021 10/31/2023 documented as of this encounter Active and Recently Administered Medications Times are shown in CDT. Scheduled Medication Order 10/29/2023 10/30/2023 10/31/2023 famotidine (PEPCID) injection 20 mg (COMPLETED) 20 mg, intravenous, Administer over 2 Minutes, Once, On 10/31/23 at 1826, For 1 dose 183 (Given - Provid er: David Story RN) fentaNYL (SUBLIMAZE) preservative free injection 50 mcg (COMPLETED) 50 mcg, intravenous, Once, On 10/31/23 at 1639, For 1 dose 1648 (Given - Provid er: David Story RN) fentaNYL (SUBLIMAZE) preservative free injection 50 mcg (COMPLETED) 50 mcg, intravenous, Once, On 10/31/23 at 1812, For 1 dose 1816 (Given - Provid er: David Story RN) ondansetron (ZOFRAN) injection 4 mg (COMPLETED) 4 mg, intravenous, Administer over 2 Minutes, Once, On 10/31/23 at 1639, For 1 dose, Indications: Nausea, Vomiting 1646 (Given - Provid er: David Story RN) ondansetron (ZOFRAN) injection 4 mg (COMPLETED) 4 mg, intravenous, Administer over 2 Minutes, Once, On 10/31/23 at 1812, For 1 dose, Indications: Nausea, Vomiting 1814 (Given - Provid er: David Story RN) sodium chloride 0.9% bolus 1,000 mL (COMPLETED) 1,000 mL, intravenous, at 1,000 mL/hr, Administer over 1 Hours, Once, On 10/31/23 at 1639, For 1 dose 164 (New Bag - Prov ider: David Story RN)1747 (Stopped - Provider: David Story RN) PRN Medication Order 10/29/2023 10/30/2023 10/31/2023 ioversoL (OPTIRAY 350) syringe 100 mL (COMPLETED) 100 mL, intravenous, Once in imaging, contrast, Starting on Mon10/31/23 at 1709, For 1 dose 1715 (Contrast Given - Provider: Farzaneh Gaxiola RT) documented in this encounter Orders Nursing Count Last Ordered Date First Orde red Date MISCELLANEOUS NURSING CARE ORDER (SPECIFY) 2 10/31/2023 IV Count Last Ordered Date First Orde red Date SALINE LOCK IV 1 10/31/2023 documented in this encounter Care Teams Mender Knit Goods Relationship Specialty Start Date End Date Justen Gale MD 2 [facility] [address] [place] [address] PCP - General 10/09/17 Liu Jerez MD Consulting Physician Gastroenterology 07/28/17 [place] [address] [facility] [address] [place] [address] Consulting Physician Pulmonary Disease 08/03/17 Khris Arthur MD [address] [facility] [address] [place] [address] Medical Oncologist/Turbine Technician Medical Oncology 10/23/17 [place] [address] [facility] [address] [place] [address] Surgeon Orthopedic Surgery 10/23/17 [place] [address] [facility] [address] [place] [address] Consulting Physician Pain Management 10/23/17 [place] [address] [facility] [address] [place] [address] Referring Physician General Surgery 01/26/18 [place] [address] [facility] [address] [place] [address] Consulting Physician Neurology 01/26/18 documented as of this encounter
--- OUTSIDE RECORDS SUMMARY | 2024-04-26 04:18 | XMS_ITS | Encounter Summary ---
Author Organization [facility] Address [address] [place] [address] Phone Care Team Providers Care Experienced Truck Driver Name Role Phone Liu Jerez MD Unavailable Albert Corbin MD Unavailable Justen Gale MD Primary Care Provider Khris Arthur MD Unavailable [phone] Ko Melendez MD Unavailable [phone] John Paul Moyer MD Unavailable Annel Rod MD Unavailable Anali MARSHALL MD, Carlos M. Unavailable Encounter Details Date Type Department Care Team (Late st Contact Info) Description 09/13/2023 Orders Only [facility] On[facility] [address] [place] [address] Radha Mcgrath RN Social History Tobacco Use Types Packs/Day Years Used Date Smoking Tobacco: Former Smokeless Tobacco: Never Comments:remote tobacco use Alcohol Use Standard Drinks/Week Comments No 0 (1 standard drink = 0.6 oz pur e alcohol) [facility] Utilities Answer Date Recorded In the [...] often do you attend chur ch or lutheran services? 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 Gender Identity Not on file Sexual Orientation Not on file documented as of this encounter Plan of Treatment Not on file documented as of this encounter Visit Diagnoses Not on filedocumented in this encounter Care Teams Experienced Truck Driver Relationship Specialty Start Date End Date Justen Gale MD 2 [facility] [address] [place] [address] PCP - General 10/09/17 Liu Jerez MD Consulting Physician Gastroenterology 07/28/17 [place] [address] [facility] [address] [place] [address] Consulting Physician Pulmonary Disease 08/03/17 [place] [address] [place] [address] [address] [place], [place] [id number] Medical Oncologist/Entry Level Receptionist Medical Oncology 10/23/17 [place] [address] [address] Surgeon Orthopedic Surgery 10/23/17 [place] [address] [address] Consulting Physician Pain Management 10/23/17 [place] [address] [address] Referring Physician General Surgery 01/26/18 [place] [address] [facility] [address] [place] [address] Consulting Physician Neurology 01/26/18 documented as of this encounter
--- OUTSIDE RECORDS SUMMARY | 2024-04-26 04:18 | XMS_ITS | Encounter Summary ---
Author Organization [facility] Healthcare Address [address] [place] [address] Care Team Providers Care Prefabricator Name Role Phone Liu Jerez MD Unavailable [phone] Albert Corbin MD Unavailable Justen Gale MD Primary Care Provider Khris Arthur MD Unavailable [phone] Ko Melendez MD Unavailable John Paul Moyer MD Unavailable Annel Rod MD Unavailable Anali MARSHALL MD, Carlos M. Unavailable [phone] Reason for Visit * Reason Comments Urinary Problem Chest Pain Dental Pain Encounter Details Date Type Department Care Team (Late st Contact Info) Description 09/03/2023 1:31 AM CDT - 09/03/2023 4:02 AM CDT Emergency [facility] Emergency Department [address] [place] [address] Daisy Lau MD [address] [facility] [address] [place] [address] Chronic bilateral thoracic back pain (Primary Dx); Chest pain, non-cardiac; Chronic midline low back pain without sciatica Discharge Disposition: Discharge to home or self care Social History Tobacco Use Types Packs/Day Years Used Date Smoking Tobacco: Former Smokeless Tobacco: Never Comments:remote tobacco use Alcohol Use Standard Drinks/Week Comments No 0 (1 standard drink = 0.6 oz pur e alcohol) [facility] Utilities Answer Date Recorded In the [...] How often do you attend [facility] or taoist services? Patient unable to answer 08/15/2023 Do you belong to any clubs o r organizations such as latter-day groups, unions, fraternal or athletic groups, or [...] slept in a fpc (including now)? No 08/15/2023 Personal Safety Answer Date Recorded Have you ever been in or are you currently in a harmful physical or emotional relationship or is someone making you feel afraid or unsafe? 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 Gender Identity Not on file Sexual Orientation Not on file documented as of this encounter Last Filed Vital Signs Vital Sign Reading Time Taken Comments Blood Pressure 110/81 09/03/2023 3:30 AM CDT Pulse 82 09/03/2023 3:30 AM CDT Temperature 36.9 ??C (98.4 ??F) 09/02/2023 1 1:40 PM CDT Respiratory Rate 28 09/03/2023 3:30 AM CDT Oxygen Saturation 94% 09/03/2023 3:30 AM CDT Inhaled Oxygen Concentration - - Weight 122.1 kg (269 lb 2.9 oz) 024 11:40 PM CDT Height 154.9 cm (5' 1 ) 09/02/2023 11:4 0 PM CDT Body Mass Index 50.86 09/02/2023 11:40 PM CDT documented in this encounter Discharge Instructions * Discharge Instructions* Daisy Lau MD - 09/03/2023 3:42 AM CDT YOUR URINE IS NEGATIVE FOR INFECTION. BLADDER SCAN IS NEGATIVE FOR ANY RETAINED URINE. YOUR HEART LABS ARE UNREMARKABLE. ALL OF LABS ARE UNREMARKABLE FOLLOW UP WITH PAIN MANAGEMENT FOR FURTHER MANAGEMENT OF YOUR BACK PAIN CONTINUE XARELTO PREVIOUSLY PRESCRIBED. documented in this encounter Medications at Time [...] 05/23/2023 4 documented as of this encounter Discharge Disposition Disposition Code Departure Means Destination Comment s Discharge to home or self care documented in this encounter ED Notes * Daisy Lau MD - 09/03/2023 3:02 AM CDT HPI Chief Complaint Patient presents with Urinary Problem Chest Pain Dental Pain 68 YO F HX OF CHF, CYSTITIS, CVA, CHRONIC BACK PAIN S/P RECENT STEROID INJECTION TO MID BACK, T2DM,HTN, DVT ON XARELTO TO THE ER C/O MID BACK PAIN RADIATING THROUGH TO HER CHEST THAT THEN SPREADS OUT TO UPPER ABDOMEN AND CHEST. PAIN OCCURS INTERMITTENTLY X 4 DAYS. + INTERMITTENT URGENCY AND URINARY INCONTINENCE X 4 DAYS. SHE DENIES SADDLE ANES, LEG WEAKNESS, NUMBNESS OR TINGLING. SHE DENIES FEVER, CHILLS. PT IS AMBULATORY Patient History: Patient Active Problem List Diagnosis Date Noted Breast cancer (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) 01/24/2018 Anxiety and depression 11/12/2017 Uncontrolled type 2 diabetes mellitus with hyperglycemia, with long-term current use of insulin ([facility]) 11/06/2017 Allergy to drug 11/06/2017 Dysuria 10/26/2017 Acute left-sided low back pain with left-sided sciatica 10/23/2017 Type 2 diabetes mellitus with neurologic complication, without long-term current use of insulin ([facility]) ([facility]) 10/23/2017 Hypertension 10/23/2017 Long-term current use of opiate analgesic 10/23/2017 Lumbosacral spondylosis without myelopathy 10/23/2017 Radiculopathy, lumbosacral region 10/23/2017 Spinal stenosis of lumbar region without neurogenic claudication 10/23/2017 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 Type 2 diabetes mellitus without complication ([facility]) ([facility]) Constipation Malignant neoplasm of upper-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 ([facility]) 10/17/2017 Cancer of overlapping sites of left female breast ([facility]) 10/13/2017 Chronic anticoagulation Restless leg syndrome Chest pressure 08/01/2017 Positive blood culture 08/01/2017 Hyponatremia 08/01/2017 Diet-controlled diabetes mellitus ([facility]) ([facility]) 08/01/2017 LUL (obstructive sleep apnea) 08/01/2017 History of DVT (deep vein thrombosis) 08/01/2017 History of pulmonary embolism 08/01/2017 Essential hypertension Generalized weakness 07/27/2017 Dyspnea 07/27/2017 Unintentional weight loss 07/27/2017 Acute cystitis without hematuria 07/27/2017 Nausea and vomiting 07/26/2017 Pulmonary embolism (HCC) 08/09/2016 Lymphedema of left upper extremity 08/09/2016 Pain of foot 01/26/2015 Arthralgia of ankle 01/26/2015 Rash 11/11/2014 Cellulitis of breast 11/11/2014 Restless legs syndrome 03/12/2013 Pain of lower extremity 03/12/2013 Past Medical History: Diagnosis Date Adiposity obesity Breast CA (HCC) Cancer (CMS/HCC) (HCC) breast CHF (congestive heart failure) (CMS/HCC) (HCC) Depression Depression Diabetes (HCC) Disorder of thyroid Thyroid disease DVT (deep venous thrombosis) (CMS/HCC) (HCC) HX OTHER MEDICAL restless leg syndrome HX OTHER MEDICAL RLS Hypertension Hypertension Osteoarthritis osteoarthritis PE (pulmonary thromboembolism) ([facility]) ([facility]) Sleep apnea Past Surgical History: Procedure Laterality [...] tobacco: Never Tobacco comments: remote tobacco use Vaping Use Vaping status: Never Used Substance and Sexual Activity Alcohol use: No Drug use: Never Sexual activity: Defer Social History Social History Narrative Not on file Review of Systems Review of Systems Musculoskeletal: Positive for back pain. All other systems reviewed and are negative. Physical Exam ED Triage Vitals Temp Pulse Resp BP SpO2 09/02/23 2340 09/02/23 23409/02/23 23409/02/23 23409/02/23 234 36.9 ??C (98.4 ??F) 82 18 151/90 99 % Temp src Heart Rate Source Patient Position BP Location FiO2 (%) 09/02/23 23409/03/23 0145 09/03/23 0145 09/03/23 0145 -- Oral Monitor Lying Right arm Height Height Method Weight Weight Method 09/02/23233909/02/23233909/02/23233909/02/232339 1.549 m (5' 1 ) Stated 122.1 kg (269 lb 2.9 oz) Standing scale Physical Exam Vitals and nursing note reviewed. Constitutional: General: She is not in acute distress. Appearance: She is not ill-appearing. HENT: Head: Atraumatic. Mouth/Throat: Mouth: Mucous membranes are moist. Eyes: Extraocular Movements: Extraocular movements intact. Cardiovascular: Rate and Rhythm: Normal rate and regular rhythm. Pulses: Normal pulses. Heart sounds: Normal heart sounds. Pulmonary: Effort: Pulmonary effort is normal. Breath sounds: Normal breath sounds. Abdominal: General: There is no distension. Palpations: Abdomen is soft. Tenderness: There is no abdominal tenderness. There is no right CVA tenderness or left CVA tenderness. Musculoskeletal: General: Normal range of motion. Cervical back: Normal range of motion. Skin: General: Skin is warm and dry. Neurological: Mental Status: She is alert. MDM Heart Score NIH Score Medical Decision Making Amount and/or Complexity of Data Reviewed Labs: ordered. ECG/medicine tests: ordered. Risk Prescription drug management. ED Course as of 10/01/23 0557 Time: 09/03 343 Comment: POST VOID BLADDER VOLUME IS 167 CC By: Daisy Lau MD Time: 09/03 347 Comment: CHART REVIEW SHOWS NEGATIVE STRESS TEST IN 2021. By: Daisy Lau MD Time: 09/03 347 Comment: EKG OBATINED AT 23:58 NSR, RATE 78, MILD LAD, NO ACUTE ISCHEMIA, NO ARRYTHMIAS, INTERVALS OTHERWISE WNL By: Daisy Lau MD Final diagnoses: Chronic bilateral thoracic back pain Chest pain, non-cardiac Chronic midline low back pain without sciatica Daisy Lau MD 09/03/23 0350 Daisy Lau MD 10/01/23 0557 * Patsy Hassan, RN - 09/02/2023 11:36 PM CDT Pt here with multiple complaints. States that she has urinary symptoms started 4 days ago with abd pressure and urinating on herself. States she feels unwell and weak. States chest pain that randomlycomes on out of the blue. States hx of chf. States edema that comes and goes in bilateral legs. Pt states tooth ache in the upper right side. Denies fever, states chills. Pt states she gets steroid injections in her back and that is where the pain started then radiates to the center of chest. Pt with pain management documented in this encounter Plan of Treatment Not on file documented as of this encounter Procedures Procedure Name Priority Date/Time Associated Diagnosis Comments URINALYSIS AND REFLEX TO MICROSCOPIC AND CULTURE STAT 09/03/2023 2:56 AM CDT TROPONIN T HIGH-SENSITIVITY 2-HOUR Timed 09/03/2023 1:53 AM CDT LIPASE Add-On 09/03/2023 1:53 AM CDT PRO B-TYPE NATRIURETIC PEPTIDE Add-On 09/03/2023 1:50 AM CDT ECG 12-LEAD Routine 09/02/2023 11:58 PM CDT POCT GLUCOSE DEVICE Routine 09/02/2023 1 1:54 PM CDT TROPONIN T HIGH-SENSITIVITY SERIES (BASELINE, 2HR, 4HR, 6HR) STAT 09/02/2023 11:52 PM CDT EGFR STAT 09/02/2023 11:52 PM CDT DIFFERENTIAL AUTO STAT 09/02/2023 11: 52 PM CDT CBC WITH AUTO DIFFERENTIAL STAT 09/02/2023 11:52 PM CDT COMPREHENSIVE METABOLIC PANEL STAT 09/02/2023 11:52 PM CDT documented in this encounter Results * Urinalysis reflex to microscopic and culture Urine (09/03/2023 2:56 AM CDT) Color, ur Yellow Yellow Comment:Testing performed by : [address] [address] Clarity, ur Clear Clear MARY JANE Comment:Testing performed by : [address], [place]., [address] Specific gravity, ur 1.019 1.003 - 1.030 MARY JANE Comment:Testing performed by : [address], [place]., [address] pH, urine 6.5 MARY JANE Comment: Interpretive Data ? Urine pH is affected by diet, medications, systemic acid-base disturbances, and renal tubular function. ??pH may affect urinary stone formation. ??For example, urine pH below 6.0 may help reduce the tendency for calcium phosphate stones and pH greater than 6.0 may reduce the tendency for uric acid stone formation. Source: [facility] Nvidia Current Interpretive Data was last revised on 2017 Testing performed by: [address] [address] Protein, ur ql Negative Negative MARY JANE Comment:Testing performed by : [address] [address] Glucose, ur ql Negative Negative MARY JANE Comment:Testing performed by : [address] [address] Ketones, ur Negative Negative MARY JANE Comment:Testing performed by : [address] [address] Bilirubin, ur Negative Negative MARY JANE Comment:Testing performed by : [address] [address] Blood, ur Negative Negative MARY JANE Comment:Testing performed by : [address] [address] Urobilinogen, ur <2.0 <2.0 mg/dL MARY JANE Comment:Testing performed by : [address] [address] Nitrite, ur Negative Negative MARY JANE Comment:Testing performed by : [address], [place]., [address] Leukocyte esterase, ur Negative Negative MARY JANE Comment:Testing performed by : [address] [address] UA reflex comment Reflex conditions for microscopic UA and culture not met. MARY JANE PHAM Comment:Testing performed by : [address] [address] Urine 09/03/2023 2:56 AM CDT 09/03/2023 2:59 AM CDT Daisy Lau MD LAB MICROBIOLOGY - GENERA L ORDERABLES Final Result Performing Organization Address [facility] Co de Phone Number MARY JANE [address] [place] [address] * Lipase (09/03/2023 1:53 AM CDT) [facility] Lipase 31 10 - 99 Units/L Comment:Testing performed by : [address] [address] Blood 09/03/2023 1:53 AM CDT 09/03/2023 3:01 AM CDT Daisy Lau MD LAB BLOOD ORDERABLES Deann l Result Performing Organization Address [facility] Co de Phone Number [address] [address] * (ABNORMAL) Troponin T high-sensitivity 2-hour (09/03/2023 1:53 AM CDT) Pathologist [facility] Trop T hs 17(H) <=14 ng/L Comment: Ref Range High Interpretive Data For further hscTnT resources including the diagnostic algorithm and an aid in interpretation, copy and paste this link: https://nrl.testcatalog.org/show/hsTrop Current Interpretive Data last revised 2020. Testing performed by: [address] [address] Trop T hs delta -1 ng/L MARY JANE PHAM Comment:Testing performed by : [address] [address] Trop T hs interp Insignificant MARY JANE PHAM Comment:Testing performed by : [facility], [facility], [place]., [address] Blood 09/03/2023 1:53 AM CDT 09/03/2023 1:57 AM CDT us Lila MCKEON LAB BLOOD ORDERABLES Final R esult BCPUJA [address] [facility] Department [place] [address] * Pro B-type natriuretic peptide (09/03/2023 1:50 AM CDT) NT-proBNP 74 <=300 pg/mL Comment: Interpretive Comments: A. Dyspnea [...] et.al. Eur Heart J. 2006:27:330-337. 2. Tracy RW, Duyen AM. J. AM Wang Cardiol: Cardiovasc Imag. 2009;2: 216- 225. Interpretive Data Last Revised Date: 2017. Testing performed by: [facility], [address] [place] [address]., [address] Blood 09/03/2023 1:50 AM CDT 09/03/2023 2:28 AM CDT us Daisy Lau MD LAB BLOOD ORDERABLES Deann l Result Performing Organization Address City/[facility]/ZIP Co de Phone Number [facility] [address] [facility] Department [place] [address] * ECG 12 lead (09/02/2023 11:58 PM CDT) Pathologist [facility] Ventricular Rate EKG/Min 78 BPM [facility] Atrial Rate 78 BPM [facility] GA-Interval (MSEC) 126 ms [facility] QRS-Interval (MSEC) 88 ms [facility] QT-Interval (MSEC) 384 ms [facility] QTc 437 ms [facility] P [place] 40 degrees [facility] R [place] -6 degrees [facility] T [place] 37 degrees [facility] Diagnosis Normal sinus rhythm Normal ECG When compared with ECG of 11-MAY-2023 11:51, No significant change was found Confirmed by CHUCK SALAS M.D. ([id number]) on 09/03/2023 5:38:21 PM [facility] 09/02/2023 11:5 8 PM CDT 09/03/2023 5:38 PM CDT us Daisy Lau MD ECG ORDERABLES Final Res ult Performing Organization Address [facility]/ZIP Co de Phone Number [facility] * POCT glucose (09/02/2023 11:54 PM CDT) Pathologist [facility] Glucose, POC 81 70 - 199 mg/dL Comment:Testing performed by : [facility], [address] [place] [address]., [address] Glucose comment 1 Use This Result MARY JANE PHAM Comment:Testing performed by : [facility], [address] [place] [address]., [address] Blood 09/02/2023 11:5 4 PM CDT 09/02/2023 11:54 PM CDT us Notinfile Unknown LAB POCT ORDERABLES - DEVICE F inal Result MARY JANE [address] [facility] Department [place] [address] * eGFR (09/02/2023 11:52 PM CDT) [facility] eGFR 81 >=60 mL/min/1. 73 m2 Comment: Interpretive Data [...] was last reviewed 2021. Testing performed by: [address] [address] Blood 09/02/2023 11:5 2 PM CDT 09/03/2023 12:01 AM CDT us Daisy Lau MD LAB BLOOD ORDERABLES Deann bowman Result [facility] [address] [facility] Department [place] [address] * (ABNORMAL) Differential, auto (09/02/2023 11:52 PM CDT) Neutrophil abs 7.8(H) 1.5 - 6.5 K/cumm Comment:Testing performed by : [address] [address] Imm gran abs 0.0 0.0 - 0.1 K/cumm MARY JANE Comment:Testing performed by : [address] [address] Lymphocyte abs 3.8(H) 0.8 - 3.3 K/cumm MARY JANE Comment:Testing performed by : [address] [address] Monocyte abs 1.0(H) 0.2 - 0.8 K/cumm [facility] Comment:Testing performed by : [address] [address] Eosinophil abs 0.3 0.0 - 0.5 K/cumm [facility] Comment:Testing performed by : [address] [address] Basophil abs 0.0 0.0 - 0.1 K/cumm [facility] Comment:Testing performed by : [address] [address] Neutrophil pct 60.0 % MARY JANE Comment: Interpretive Data Percent cell count reference ranges are not reported, since discordance with absolute values may lead to misinterpretation of CBC data. Current Interpretive Data was last revised on 2017. Testing performed by: [address] [address] Imm gran pct 0.3 % [facility] Comment: Interpretive Data Percent cell count reference ranges are not reported, since discordance with absolute values may lead to misinterpretation of CBC data. Current Interpretive Data was last revised on 2017. Testing performed by: [address] [address] Lymphocyte pct 29.6 % [facility] Comment: Interpretive Data Percent cell count reference ranges are not reported, since discordance with absolute values may lead to misinterpretation of CBC data. Current Interpretive Data was last revised on 2017. Testing performed by: [address] [address] Monocyte pct 7.7 % [facility] Comment: Interpretive Data Percent cell count reference ranges are not reported, since discordance with absolute values may lead to misinterpretation of CBC data. Current Interpretive Data was last revised on 2017. Testing performed by: [address] [address] Eosinophil pct 2.2 % [facility] Comment: Interpretive Data Percent cell count reference ranges are not reported, since discordance with absolute values may lead to misinterpretation of CBC data. Current Interpretive Data was last revised on 2017. Testing performed by: [address] [address] Basophil pct 0.2 % [facility] Comment: Interpretive Data Percent cell count reference ranges are not reported, since discordance with absolute values may lead to misinterpretation of CBC data. Current Interpretive Data was last revised on 2017. Testing performed by: [address] [address] Blood 09/02/2023 11:5 2 PM CDT 09/03/2023 12:01 AM CDT us Daisy Lau MD LAB BLOOD ORDERABLES Deann l Result [facility] [address] [facility] Department [place] [address] * (ABNORMAL) Troponin T high-sensitivity series (baseline, 2hr, 4hr, 6hr) (09/02/2023 11:52 PM CDT) Pathologist [facility] Trop T hs 18(H) <=14 ng/L Comment: Ref Range High Interpretive Data For further hscTnT resources including the diagnostic algorithm and an aid in interpretation, copy and paste this link: https://nrl.testcatalog.org/show/hsTrop Current Interpretive Data last revised 2020. Testing performed by: [address] [address] Blood 09/02/2023 11:5 2 PM CDT 09/03/2023 12:01 AM CDT Daisy Lau MD LAB BLOOD ORDERABLES Edit ed Result - Final [facility] [address] [facility] Department [place] [address] * (ABNORMAL) Comprehensive metabolic panel (09/02/2023 11:52 PM CDT) [facility] Sodium 130(L) 135 - 145 mmol/L Comment:Testing performed by : [address] [address] Potassium, pl 3.7 3.3 - 4.9 mmol/L MARY JANE Comment:Testing performed by : [address] [address] Chloride 93(L) 97 - 110 mmol/L MARY JANE Comment:Testing performed by : [address] [address] CO2 27 22 - 32 mmol/L MARY JANE Comment:Testing performed by : [address] [address] Anion gap 10 2 - 15 mmol/L MARY JANE Comment:Testing performed by : [address] [address] BUN 16 6 - 25 mg/dL MARY JANE Comment:Testing performed by : [address] [address] Creatinine 0.80 0.60 - 1.10 mg/dL MARY JANE Comment:Testing performed by : [address] [address] Glucose 84 70 - 199 mg/dL MARY JANE Comment: [...] was last revised 2022. Testing performed by: [address] [address] Calcium 10.4(H) 8.5 - 10.3 mg/dL MARY AJNE Comment:Testing performed by : [address] [address] Bilirubin, total 0.4 0.1 - 1.2 mg/dL MARY JANE Comment:Testing performed by : [address] [address] Protein, pl 8.7(H) 6.5 - 8.5 g/dL MARY JANE Comment:Testing performed by : [address] [address] Albumin 4.1 3.5 - 5.0 g/dL MARY JANE Comment:Testing performed by : [address] [address] Alk phos 95 40 - 130 Units/L MARY JANE Comment:Testing performed by : [address] [address] ALT 16 7 - 45 Units/L MARY JANE Comment:Testing performed by : [address] [address] AST 16 10 - 45 Units/L MARY JANE Comment:Testing performed by : [address] [place] [address] Blood 09/02/2023 11:5 2 PM CDT 09/03/2023 12:01 AM CDT us Daisy Lau MD LAB BLOOD ORDERABLES Deann bowman Result [facility] [address] [facility] Department [place] [address] * (ABNORMAL) CBC with auto differential (09/02/2023 11:52 PM CDT) WBC 13.0(H) 3.8 - 9.9 K/cumm Comment:Testing performed by : [address] [address] Hgb 13.9 11.9 - 15.5 g/dL MARY JANE Comment:Testing performed by : [address] [address] Hct 42.8 35.6 - 45.5 % MARY JANE Comment:Testing performed by : [address] [address] Plt 310 150 - 400 K/cumm MARY JANE Comment:Testing performed by : [address] [address] MPV 10.0 9.1 - 12.3 fL MARY JANE Comment:Testing performed by : [address] [address] RBC 4.79 3.90 - 5.20 M/cumm MARY JANE Comment:Testing performed by : [address] [address] MCV 89.4 81.3 - 96.4 fL MARY JANE Comment:Testing performed by : [address] [address] MCH 29.0 27.1 - 33.3 pg MARY JANE PHAM Comment:Testing performed by : [address] [address] MCHC 32.5 32.3 - 35.7 g/dL MARY JANE PHAM Comment:Testing performed by : [facility], [address] [place] [address]., [address] RDW CV 13.7 11.1 - 14.9 % MARY JANE PHAM Comment:Testing performed by : [address] [address] RDW SD 44.7 35.7 - 48.1 fL MARY JANE PHAM Comment:Testing performed by : [address] [address] NRBC abs 0.00 0.00 - 0.01 K/cumm MARY JANE PHAM Comment:Testing performed by : [facility], [address] [place] [address]., [address] Blood 09/02/2023 11:5 2 PM CDT 09/03/2023 12:01 AM CDT us Daisy Lau MD LAB BLOOD ORDERABLES Deann l Result Performing Organization Address City/State/[facility] Co de Phone Number MARY JANE PHAM [address] [facility] Department [place] [address] documented in this encounter Visit Diagnoses Diagnosis Chronic bilateral thoracic back pain- Primary Chest pain, non-cardiac Other chest pain Chronic midline low back pain without sciatica documented in this encounter Administered Medications Inactive Administered Medications - up to 3 most recent administrations Medication Order MAR Action Action Date Dose Rate Site morphine injection 4 mg 4 mg, intravenous, Administer over 4 Minutes, Once, On 09/03/23 at 0254, For 1 dose, Indications: PainIndications:Pain Given 09/03/2023 3:14 AM CDT 4 mg ondansetron (ZOFRAN) injection 4 mg 4 mg, intravenous, Administer over 2 Minutes, Once, On 09/03/23 at 0259, For 1 dose, Indications: Nausea, VomitingIndications:Nausea,Vo miting Given 09/03/2023 3:13 AM CDT 4 mg sodium chloride 0.9% bolus 500 mL 500 mL, intravenous, at 500 mL/hr, Administer over 1 Hours, Once, On 09/03/23 at 0254, For 1 dose New Bag 09/03/2023 3:12 AM CDT 500 mL 500 mL/hr documented in this encounter Active and Recently Administered Medications Times are shown in CDT. Scheduled Medication Order 09/01/2023 09/02/2023 09/03/2023 morphine injection 4 mg (COMPLETED) 4 mg, intravenous, Administer over 4 Minutes, Once, On 09/03/23 at 0254, For 1 dose, Indications: Pain 0314 (Given - Provid er: Sahil Heart RN) ondansetron (ZOFRAN) injection 4 mg (COMPLETED) 4 mg, intravenous, Administer over 2 Minutes, Once, On 09/03/23 at 0259, For 1 dose, Indications: Nausea, Vomiting 0313 (Given - Provid er: Sahil Heart RN) sodium chloride 0.9% bolus 500 mL (COMPLETED) 500 mL, intravenous, at 500 mL/hr, Administer over 1 Hours, Once, On 09/03/23 at 0254, For 1 dose 0312 (New Bag - Prov ider: Sahil Heart RN)0347 (Stopped - Provider: Sahil Heart RN) documented in this encounter Orders Lab Orders Without Results Count Last Ordered D ate First Ordered Date POCT GLUCOSE DEVICE 1 09/02/2023 documented in this encounter Care Teams Prefabricator Relationship Specialty Start Date End Date Justen Gale MD [address] [address] PCP - General 10/09/17 Liu Jerez MD Consulting Physician Gastroenterology 07/28/17 [place] [address] [facility] [address] [place] [address] Consulting Physician Pulmonary Disease 08/03/17 Khris Arthur MD [address] [facility] [address] [place] [address] Medical Oncologist/Brewing Director Medical Oncology 10/23/17 [place] [address] [facility] [address] [place] [address] Surgeon Orthopedic Surgery 10/23/17 [place] [address] [address] Consulting Physician Pain Management 10/23/17 [place] [address] [facility] [address] [place] [address] Referring Physician General Surgery 01/26/18 [place] [address] [facility] [address] [place] [address] Consulting Physician Neurology 01/26/18 documented as of this encounter
--- OUTSIDE RECORDS SUMMARY | 2024-04-26 04:18 | XMS_ITS | Encounter Summary ---
Author Organization [facility] Healthcare Address [address] [place] [address] Care Team Providers Care Pantograph Transferrer Name Role Phone Liu Jerez MD Unavailable Albert Corbin MD Unavailable Justen Gale MD Primary Care Provider Khris Arthur MD Unavailable [phone] Ko Melendez MD Unavailable [phone] John Paul Moyer MD Unavailable [phone] Annel Rod MD Unavailable Anali MARSHALL MD, Carlos M. Unavailable Encounter Details Date Type Department Care Team (Latest Contact Info) Description 10/03/2023 2:23 PM CDT - 10/03/2023 11:59 PM CDT Hospital Encounter [facility] [address] [place] [id number] Discharge Disposition: Discharge to home or self care Social History Tobacco Use Types Packs/Day Years Used Date Smoking Tobacco: Former Smokeless Tobacco: Never Comments:remote tobacco use Alcohol Use Standard Drinks/Week Comments No 0 (1 standard drink = 0.6 oz pur e alcohol) [facility] Utilities Answer Date Recorded In the past [...] How often do you attend chur or mu-ism services? 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 Gender Identity Not on file Sexual Orientation [...] Discharge Disposition Disposition Code Departure Means Destination Discharge to home or self care documented in this encounter Plan of Treatment Not on file documented as of this encounter Visit Diagnoses Not on filedocumented in this encounter Care Teams Pantograph Transferrer Relationship Specialty Start Date End Date Justen Gale MD 2 [facility] [address] [place] [address] PCP - General 10/09/17 Liu Jerez MD Consulting Physician Gastroenterology 07/28/17 [place] [address] [facility] [address] [place] [address] Consulting Physician Pulmonary Disease 08/03/17 Khris Arthur MD [address] [facility] [address] [place] [address] Medical Oncologist/Oracle Erp Developer Medical Oncology 10/23/17 [place] [address] [facility] [address] [place] [address] Surgeon Orthopedic Surgery 10/23/17 [place] [address] [facility] [address] [place] [address] Consulting Physician Pain Management 10/23/17 [place] [address] [facility] [address] [place] [address] Referring Physician General Surgery 01/26/18 [place] [address] [address] [facility] [address] [place] [address] Consulting Physician Neurology 01/26/18 documented as of this encounter
--- OUTSIDE RECORDS SUMMARY | 2024-04-26 04:18 | XMS_ITS | Encounter Summary ---
Author Organization [facility] Address [address] [place] [address] Phone Care Team Providers Care Service Correspondent Name Role Phone Liu Jerez MD Unavailable Albert Corbin MD Unavailable Justen Gale MD Primary Care Provider [phone] Khris Arthur MD Unavailable [phone] Ko Melendez MD Unavailable John Paul Moyer MD Unavailable [phone] Annel Rod MD Unavailable Anali MARSHALL MD, Carlos M. Unavailable [phone] Encounter Details Date Type Department Care Team (Late st Contact Info) Description 10/24/2023 Orders Only [facility] [address] [facility] Medicine 7th [place] [address] [place] [address] Radha Mcgrath RN Social History Tobacco Use Types Packs/Day Years Used Date Smoking Tobacco: Former Smokeless Tobacco: Never Comments:remote tobacco use Alcohol Use Standard Drinks/Week Comments No 0 (1 standard drink = 0.6 oz pur e alcohol) [facility] Utilities Answer Date Recorded In [...] often do you attend chur ch or alevism services? Patient unable to answer 08/15/2023 Do you belong to any clubs o r organizations such as sikh groups, unions, fraternal or athletic groups, or [...] slept in a prison (including now)? No 08/15/2023 Personal Safety Answer Date Recorded Have you ever been in or are you currently in a harmful physical or emotional relationship or is someone making you feel afraid or unsafe? 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 Gender Identity Not on file Sexual Orientation Not on file documented as of this encounter Plan of Treatment Not on file documented as of this encounter Visit Diagnoses Not on filedocumented in this encounter Care Teams Service Correspondent Relationship Specialty Start Date End Date Justen Gale MD 2 [facility] [address] [place] [address] PCP - General 10/09/17 Liu Jerez MD Consulting Physician Gastroenterology 07/28/17 [place] [address] [facility] [address] [place] [address] Consulting Physician Pulmonary Disease 08/03/17 [place] [address] [place] [address] [place] [address] Medical Oncologist/Relations Specialist Medical Oncology 10/23/17 [place] [address] [facility] [address] [place] [address] Surgeon Orthopedic Surgery 10/23/17 [place] [address] [address] Consulting Physician Pain Management 10/23/17 [place] [address] [address] Referring Physician General Surgery 01/26/18 [place] [address] [facility] [address] [place] [address] Consulting Physician Neurology 01/26/18 documented as of this encounter
--- OUTSIDE RECORDS SUMMARY | 2024-04-26 04:18 | XMS_ITS | Encounter Summary ---
Author Organization [facility] Address [address] [place] [address] Phone Care Team Providers Care Flower Stripper Name Role Phone Liu Jerez MD Unavailable Albert Corbin MD Unavailable [phone] Justen Gale MD Primary Care Provider Khris Arthur MD Unavailable [phone] Ko Melendez MD Unavailable John Paul Moyer MD Unavailable Annel Rod MD Unavailable Anali MARSHALL MD, Carlos M. Unavailable Encounter Details Date Type Department Care Team (Late st Contact Info) Description 09/13/2023 Orders Only [facility] Oncology [address] [place] [address] Radha Mcgrath RN Malignant neoplasm of upper-inner quadrant of left breast in female, estrogen receptor positive (HCC) (Primary Dx) Social History Tobacco Use Types Packs/Day Years Used Date Smoking Tobacco: Former Smokeless Tobacco: Never Comments:remote tobacco use Alcohol Use Standard Drinks/Week Comments No 0 (1 standard drink = 0.6 oz pur e alcohol) [facility] Utilities Answer Date Recorded In the [...] often do you attend chur ch or worship services? 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 Gender Identity Not on file Sexual Orientation [...] Date INFUSION APPT REQUEST 60 MIN 1 09/13/2023 documented in this encounter Care Teams Flower Stripper Relationship Specialty Start Date End Date Justen Gale MD 2 [facility] [address] [place] [address] PCP - General 10/09/17 Liu Jerez MD Consulting Physician Gastroenterology 07/28/17 [place] [address] [facility] [address] [place] [address] Consulting Physician Pulmonary Disease 08/03/17 Khris Arthur MD [address] [facility] [address] [place] [address] Medical Oncologist/Registered Account Administrator Medical Oncology 10/23/17 [place] [address] [address] [facility] [address] [place] [address] Surgeon Orthopedic Surgery 10/23/17 [place] [address] [address] [facility] [address] [place] [address] Consulting Physician Pain Management 10/23/17 [place] [address] [facility] [address] [place] [address] Referring Physician General Surgery 01/26/18 [place] [address] [facility] [address] [place] [address] Consulting Physician Neurology 01/26/18 documented as of this encounter
--- OUTSIDE RECORDS SUMMARY | 2024-04-26 04:18 | XMS_ITS | Encounter Summary ---
Author Organization [facility] Address [address] [place] [address] Care Team Providers Care Feed Weigher Name Role Phone Liu Jerez MD Unavailable Albert Corbin MD Unavailable Justen Gale MD Primary Care Provider Khris Arthur MD Unavailable [phone] Ko Melendez MD Unavailable John Paul Moyer MD Unavailable Annel Rod MD Unavailable Anali MARSHALL MD, Carlos M. Unavailable Reason for Visit * Reason Comments Back Pain Encounter Details Date Type Department Care Team (Late st Contact Info) Description 09/18/2023 5:48 PM CDT - 09/18/2023 7:26 PM CDT [facility] Emergency Department [address] [place] [id number] Chronic left-sided low back pain with left-sided sciatica (Primary Dx); Left hip pain Discharge Disposition: Discharge to home or self care Social History Tobacco Use Types Packs/Day Years Used Date Smoking Tobacco: Former Smokeless Tobacco: Never Comments:remote tobacco use Alcohol Use Standard Drinks/Week Comments No 0 (1 standard drink = 0.6 oz pur e alcohol) [facility] Utilities Answer Date Recorded In the [...] often do you attend chur ch or protestant services? 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 Gender Identity Not on file Sexual Orientation Not on file documented as of this encounter Last Filed Vital Signs Vital Sign Reading Time Taken Comments Blood Pressure 155/89 09/18/2023 7:24 PM CDT Pulse 80 09/18/2023 7:24 PM CDT Temperature 37.2 ??C (98.9 ??F) 09/18/2023 7:24 PM CD T Respiratory Rate 16 09/18/2023 7:24 PM CDT Oxygen Saturation 99% 09/18/2023 7:24 PM CDT Inhaled Oxygen Concentration - - Weight 122.8 kg (270 lb 11.6 oz) 09/18/2023 4:38 PM CDT Height 154.9 cm (5' 1 ) 09/18/2023 4:38 PM CDT Body Mass Index 51.15 09/18/2023 4:38 PM CDT documented in this encounter Discharge Instructions * Discharge Instructions* Blaze Armenta NP - 09/18/2023 7:15 PM CDT Continue take all home medicine prescribed, follow up with a pain management doctor as planned, return to ED immediately for any worsening symptoms. documented in this encounter Medications at Time of Discharge albuterol HFA (PROVENTIL HFA,VENTOLIN HFA,PROAIR HFA) 90 mcg/actuation inhaler Inhale 2 puffs every 6 (six) hours as needed for wheezing or shortness of breath 04/19/2021 BD Ultra-Fine Short Pen Needle 31 gauge x 5/16 needle USE 6 TIMES DAILY DIRECTED 06/24/2021 blood glucose diagnostic (Ilusis Ultra Test) strip 4 (four) times a [...] documented in this encounter ED Notes * Blaze Armenta NP - 09/18/2023 7:13 PM CDT Images from the original note were not included. CHIEF COMPLAINT: Chief Complaint Patient presents with Back Pain HPI 7:33 PM Karly Marques is a 68 y.o. female presenting to the ED c/o lower back and left hip pain. She states that she has a history of chronic low back pain that radiates to left side of her hip, leg. She sees pain management doctor, she has been taking narcotic pain medicine however her pain has gotten worse. She that approximately 3-4 days ago she tripped and injured her low back however shedid not fell onto the ground and she suspected that might be contributing to worsening of her pain.She denies any loss of bowel or bladder. Denies any fever or chills or nausea or vomiting. Denies any loss of sensation, numbness or tingling or weakness to her lower extremities. She denies any chest pain or shortness of breath. She denies any other complaint. History provided by patient. PCP: Justen Gale MD PAST MEDICAL HISTORY Past Medical History: Diagnosis Date Adiposity obesity Breast CA (HCC) Cancer (CMS/HCC) (HCC) breast CHF (congestive heart failure) (CMS/HCC) (HCC) Depression Depression Diabetes (HCC) Disorder of thyroid Thyroid disease DVT (deep venous thrombosis) ([facility]) ([facility]) HX OTHER MEDICAL restless leg syndrome HX OTHER MEDICAL RLS Hypertension Hypertension Osteoarthritis osteoarthritis PE (pulmonary thromboembolism) ([facility]) ([facility]) Sleep apnea PAST SURGICAL HISTORY Past Surgical History: Procedure Laterality Date ABSCESS [...] US SOFT TISSUE ABSCESS DRAIN N/A 10/24/2014 FAMILY HISTORY Family History Problem Relation Age [...] Other Family history of restless leg syndrome; MEDICATIONS GIVEN IN THE ED Medications lidocaine (LIDODERM) 5 % patch 1 patch (1 patch transdermal Medication Applied 5/27/24 1834) acetaminophen (TYLENOL) tablet 650 mg (650 mg oral Given 09/18/231833) gabapentin (NEURONTIN) capsule 300 mg (300 mg oral Given 09/18/231834) cyclobenzaprine (FLEXERIL) tablet 10 mg (10 mg oral Given 09/18/231833) CURRENT HOME MEDICATIONS Current Facility-Administered Medications: lidocaine (LIDODERM) 5 % patch 1 patch, 1 patch, transdermal, Daily, Blaze Armenta, AGRICULTURAL SCIENTIST, 1 patch at 09/18/231833 Current Outpatient Medications: albuterol HFA (PROVENTIL HFA,VENTOLIN HFA,PROAIR HFA) 90 mcg/actuation inhaler, Inhale 2 puffs every 6 (six) hours as needed for wheezing or shortness of breath, Disp: , Rfl: BD Ultra-Fine Short Pen Needle 31 gauge x 5/16 needle, USE 6 TIMES DAILY DIRECTED, Disp: , Rfl: blood glucose diagnostic (OneTouch Ultra Test) strip, 4 (four) times a day, Disp: , Rfl: dicyclomine (BENTYL) 10 mg capsule, Take 1 capsule (10 mg total) by mouth 4 (four) times a day as needed (abd cramps), Disp: 60 capsule, Rfl: 0 exemestane (AROMASIN) 25 mg tablet, Take 1 tablet (25 mg total) by mouth nightly, Disp: 90 tablet, Rfl: 3 gabapentin (NEURONTIN) 300 mg capsule, Take 1 capsule (300 mg total) by mouth 3 (three) times a day, Disp: , Rfl: HYDROcodone-acetaminophen (NORCO) 10-325 mg per tablet, Take 1 tablet by mouth every 6 (six) hours,Disp: , Rfl: insulin glargine 100 unit/mL vial for injection, Inject 32 Units under the skin daily Takes in the morning, Disp: , Rfl: insulin lispro (HumaLOG) 100 unit/mL injection, Inject 12 Units under the skin 3 (three) times a day before meals., Disp: , Rfl: methenamine (HIPREX) 1 gram tablet, Take 1 tablet (1,000 mg total) by mouth 2 (two) times a day, Disp: 60 tablet, Rfl: 1 methocarbamoL (ROBAXIN) 500 mg tablet, Take 1 tablet (500 mg total) by mouth 2 (two) times a day asneeded for muscle spasms, Disp: , Rfl: naloxone (NARCAN) 4 mg/actuation spray,non-aerosol, , Disp: , Rfl: ondansetron ODT (ZOFRAN-ODT) 4 mg disintegrating tablet, Take 1 tablet (4 mg total) by mouth every 4 (four) hours as needed for nausea or vomiting, Disp: 20 tablet, Rfl: 0 oxyBUTYnin XL (DITROPAN XL) 15 mg 24 hr tablet, Take 1 tablet (15 mg total) by mouth daily, Disp: ,Rfl: rivaroxaban (Xarelto) 20 mg tablet, Take 1 tablet (20 mg total) by mouth daily, Disp: 30 tablet, Rfl: 3 rOPINIRole (REQUIP) 5 mg tablet, Take 1 tablet (5 mg total) by mouth nightly Taken at 2100, Disp: ,Rfl: ALLERGIES Allergies Allergen Reactions Ceftriaxone Anaphylaxis R Ceftriaxone [...] (See comments) Shaky, restlessness, itching, throat swelling SOCIAL HISTORY Social History Tobacco Use Smoking status: Former Smokeless tobacco: Never Tobacco comments: remote tobacco use Substance and Sexual Activity Drug use: Never Sexual activity: Defer Alcohol Use: Not At Risk (06/16/2023) Received from [facility] AUDIT-C Frequency of Alcohol Consumption: Never Average Number of Drinks: Patient does not drink Frequency of Binge Drinking: Never PHYSICAL EXAM TRIAGE VITAL SIGNS: ED Triage Vitals Temp Pulse Resp BP SpO2 09/18/23 1638 09/18/23 1638 09/18/23 1638 09/18/23 1638 09/18/23 1638 36.6 ??C (97.9 ??F) 81 18 164/93 98 % Temp src Heart Rate Source Patient Position BP Location FiO2 (%) 09/18/23 1638 -- 09/18/231923 -- -- Oral Sitting Height Height Method Weight Weight Method 09/18/23 1638 09/18/23 1638 09/18/23 1638 09/18/23 1638 1.549 m (5' 1 ) Stated 122.8 kg (270 lb 11.6 oz) Standing scale Physical Exam Vitals and nursing note reviewed. Constitutional: General: She is not in acute distress. Appearance: Normal appearance. She is well-developed. She is not ill-appearing, toxic-appearing or diaphoretic. HENT: Head: Normocephalic and atraumatic. Jaw: There is normal jaw occlusion. Right Ear: Hearing and external ear normal. Left Ear: Hearing and external ear normal. Nose: Nose normal. Mouth/Throat: Mouth: Mucous membranes are moist. Eyes: General: Lids are normal. Vision grossly intact. Extraocular Movements: Extraocular movements intact. Conjunctiva/sclera: Conjunctivae normal. Neck: Trachea: Trachea and phonation normal. Cardiovascular: Rate and Rhythm: Normal rate and regular rhythm. Pulses: Normal pulses. Radial pulses are 2+ on the right side and 2+ on the left side. Heart sounds: Normal heart sounds. No murmur heard. Pulmonary: Effort: Pulmonary effort is normal. No respiratory distress. Breath sounds: Normal breath sounds and air entry. Abdominal: General: Bowel sounds are normal. There is no distension. Palpations: Abdomen is soft. Tenderness: There is no guarding. Musculoskeletal: Cervical back: Full passive range of motion without pain, normal range of motion and neck supple. Right lower leg: Normal. No edema. Left lower leg: Tenderness and bony tenderness present. No edema. Legs: Comments: Tenderness on palpitation on left hip. Intact neurovascular status to bilateral extremities. Skin: General: Skin is warm and dry. Capillary Refill: Capillary refill takes less than 2 seconds. Neurological: General: No focal deficit present. Mental Status: She is alert and oriented to person, place, and time. GCS: GCS eye subscore is 4. GCS verbal subscore is 5. GCS motor subscore is 6. Psychiatric: Attention and Perception: Attention normal. Mood and Affect: Mood normal. Speech: Speech normal. Behavior: Behavior normal. Behavior is cooperative. Thought Content: Thought content normal. LABS Labs Reviewed - No data to display RADIOLOGY CT Pelvis WO Contrast Result Date: 09/18/2023 Narrative: EXAM DESCRIPTION: CT PELVIS WO CONTRAST REASON FOR STUDY: hip and pelvis pain Patient states lower back pain that radiates into left hip and leg. See pain management for chronic back pain but is unable to manage the pain today TECHNIQUE: CT scan of the pelvis performed without intravenous and without oral contrast using helical scanning technique. Reconstructed coronal and sagittal MPRimages reviewed. All images stored on PACS. Automated exposure control was used as a dose optimization technique for this examination. COMPARISON: 08/24/2023 FINDINGS: MUSCULOSKELETAL: No fracture ormalalignment identified. Advanced SI joint arthrosis. PELVIC CONTENTS: Noninflamed sigmoid diverticula. BODY WALL: Ventral hernia repair. IMPRESSION: No acute abnormality identified. Hcxl-[id number]-[id number] central canal and neural foraminal narrowing in the lower lumbar spine. Chronic findingsas above THIS IS AN ELECTRONICALLY VERIFIED FINAL REPORT 09/18/2023 6:36 PM - Electronically signed by Juve Gallegos M.D. AR: VALERY Report ID: [id number] Reading Location: [id number] US Thyroid Result Date: 09/11/2023 Narrative: EXAM DESCRIPTION: US THYROID REASON FOR STUDY: [...] than tall, smoothly marginated and with calcifications, america earing unchanged. The nodule was previously biopsied with benign findings. 3. Left inferior: 1.6 x 1.5 x 1.2 cm, previously 1.4 x 1.1 x 1.1 cm. Solid, hypoechoic, wider than tall, smooth margins, macro calcifications. 5 points. TI- RADS 4 nodule. FNA is recommended. OTHER: No other significant finding. THIS IS AN ELECTRONICALLY VERIFIED FINAL REPORT 09/11/2023 12:52 PM - Electronically signed by Maykel Montano M.D. AM: AM Report ID: [id number] Reading Location: [place] [address] Impression: IMPRESSION: 1. 1.1 cm TI-RADS 4 nodule [...] malignancy <2%, no FNA or follow up required.2. TI-RADS 2: Risk of malignancy <2%, no FNA or follow up required. 3. TI-RADS 3: Risk of malignancy 2%-5%. Nodules 1.5 cm or greater follow up at 1, 3 and 5 years recommended, for nodules 2.5 cm or greater FNA recommended. 4. TI-RADS 4: Risk of malignancy 5%-20% Nodules 1.0 cm or greater followup at 1, 2, 3 and 5 years recommended, for nodules 1.5 cm or greater FNA recommended 5. TI-RADS 5: Risk of malignancy >20%. Nodules 0.5 cm or greater annual follow up for 5 years recommended, for nodules 1.0 cm or greater FNA recommended. CT Abdomen Pelvis W Contrast Result Date: 08/24/2023 Narrative: EXAM DESCRIPTION: CT ABDOMEN PELVIS W CONTRAST REASON FOR STUDY: Nausea/vomiting, Abdominal pain, acute, nonlocalized Abd pain with N/V past 2 weeks, dx with diverticulitis. Reports increased weakness past 2 days TECHNIQUE: CT scan of the abdomen and pelvis performed with intravenous andwithout oral contrast using helical scanning technique with dynamic intravenous contrast injection.Reconstructed coronal and sagittal MPR images reviewed. All images stored on PACS. Automated exposure control was used as a dose optimization technique for this examination. CONTRAST TYPE/DOSE: 100mLof IOVERSOL 350 MG IODINE/ML INTRAVENOUS SYRINGE injected via intravenous COMPARISON: 08/12/2023 FINDINGS: LOWER CHEST: Sub 6 mm nodules clustered within the left lung base are grossly unchanged compared to the prior examination. These are stable dating back at least to 10/05/2022. No specific follow-up is recommended. LIVER: The liver is normal in size. Undulating surface appearance of the livercould reflect chronic underlying liver disease. No definite [...] substantial thickening or stranding. GI: Sigmoid diverticulosis isnoted without CT evidence of acute diverticulitis. There [...] or inguinal lymphadenopathy is seen. REPRODUCTIVE: There isasymmetric prominent left adnexa, unchanged. VASCULATURE: Portal vein is patent. The aorta is normal caliber MUSCULOSKELETAL: spinal cord stimulator is noted. Chronic bilateral sacroiliitis is noted.OTHER: No other abnormality. IMPRESSION: 1. No gross CT finding to explain the patient's symptoms. 2. Indeterminate prominent left adnexa. A follow-up nonemergent outpatient pelvic ultrasound is recommended for further evaluation. 3. Additional chronic findings as above. THIS IS AN ELECTRONICALLY VERIFIED FINAL REPORT 08/24/2023 7:25 PM - Electronically signed by Giovanni Tavares M.D. AG: BAKARI Report ID: [id number] Reading Location: [id number] ED COURSE/MEDICAL DECISION MAKING ED Course as of 09/18/231932 Time: 09/17 1925 Comment: She came in for worsening of her chronic PAC, left hip pain that started after she tripped3-4 days ago however she did not fall. On exam she does not appear to be in distress, does have tenderness on palpitation her left hip, left lower back, she is concerned about fracture given she states that she has a history of osteoporosis, did do CT of her pelvis does not show any acute fracture. By: Blaze Armenta NP Time: 09/17 1926 Comment: I gave her some pain medicine here with some relief, she is scheduled to see her pain management tomorrow, advised to make sure to follow up on that, she is anticoagulated however she did not fall, denies any headache or neck pain, denies any nausea or vomiting so did not do any head scanning. By: Blaze Armenta NP Time: 09/17 1926 Comment: I am sending her home with instruction to continue to take all home medicine prescribed, follow up with a pain management doctor she has planned return to ED immediately for any worsening symptoms. She agrees with this plan. By: Blaze Armenta, CURTIS Procedures FINAL IMPRESSION Chronic left-sided low back pain with left-sided sciatica Left hip pain DISPOSITION: Home PATIENT INSTRUCTED TO FOLLOW UP No follow-up provider specified. DISCHARGE MEDICATIONS Your medication list CONTINUE taking these medications Instructions Last Dose Given Next Dose Due BD Ultra-Fine Short Pen Needle 31 gauge x 5/16 needle Generic drug: pen needle, diabetic USE 6 TIMES DAILY DIRECTED ASK your doctor about these medications Instructions Last Dose Given Next Dose Due albuterol HFA 90 mcg/actuation inhaler Commonly known as: PROVENTIL HFA,VENTOLIN HFA,PROAIR HFA Inhale 2 puffs every 6 (six) hours as needed for wheezing or shortness of breath dicyclomine 10 mg capsule Commonly known as: BENTYL Take 1 capsule (10 mg total) by mouth 4 (four) times a day as needed (abd cramps) exemestane 25 mg tablet Doctor's comments: To replace lost bottle of medicine Commonly known as: AROMASIN Take 1 tablet (25 mg total) by mouth nightly gabapentin 300 mg capsule Commonly known as: NEURONTIN Take 1 capsule (300 mg total) by mouth 3 (three) times a day HYDROcodone-acetaminophen 10-325 mg per tablet Commonly known as: NORCO Take 1 tablet by mouth every 6 (six) hours insulin glargine 100 unit/mL vial for injection Commonly known as: LANTUS, SEMGLEE Inject 32 Units under the skin daily Takes in the morning insulin lispro 100 unit/mL vial for injection Commonly known as: HumaLOG, ADMELOG Inject 12 Units under the skin 3 (three) times a day before meals. methenamine 1 gram tablet Commonly known as: HIPREX Take 1 tablet (1,000 mg total) by mouth 2 (two) times a day methocarbamoL 500 mg tablet Commonly known as: ROBAXIN Take 1 tablet (500 mg total) by mouth 2 (two) times a day as needed for muscle spasms naloxone 4 mg/actuation spray,non-aerosol Commonly known as: NARCAN ondansetron ODT 4 mg disintegrating tablet Commonly known as: ZOFRAN-ODT Take 1 tablet (4 mg total) by mouth every 4 (four) hours as needed for nausea or vomiting OneTouch Ultra Test strip Generic drug: blood glucose diagnostic 4 (four) times a day oxyBUTYnin XL 15 mg 24 hr tablet Commonly known as: DITROPAN XL Take 1 tablet (15 mg total) by mouth daily rivaroxaban 20 mg tablet Commonly known as: Xarelto Take 1 tablet (20 mg total) by mouth daily rOPINIRole 5 mg tablet Commonly known as: REQUIP Take 1 tablet (5 mg total) by mouth nightly Taken at 2100 This examination was transcribed using the [employer] voice recognition system without human [employer] rep. In an effort to expedite patient care, this report has not been adjusted for typographical, grammatical, and syntax by a trained medical researcher. Blaze Armenta NP 09/18/231933 Cosigned by Ryan Costa Jr., MD at 09/18/2023 10:13 PM CDT Associated attestation - Ryan Costa Jr., MD - 09/18/2023 10:13 PM CDT ED Attestation Based on the medical record the care appears appropriate. * Aislinn Holguin RN - 09/18/2023 4:35 PM CDT Patient states lower back pain that radiates into left hip and leg. See pain management for chronicback pain but is unable to manage the pain today documented in this encounter Plan of Treatment Not on file documented as of this encounter Procedures Procedure Name Priority Date/Time Associated Diagnosis Comments CT PELVIS WO CONTRAST ED 09/18/2023 6:31 PM CDT documented in this encounter Results * CT Pelvis WO Contrast (09/18/2023 6:31 PM CDT) Anatomical Region Laterality Modality Body N/A Computed Tomogra phy 09/18/2023 6:34 PM CDT Narrative 09/18/2023 6:36 PM CDT EXAM DESCRIPTION: ?? CT PELVIS WO CONTRAST REASON FOR STUDY: ?? hip and pelvis pain ?? Patient states lower back pain that radiates into left hip and leg. See pain management for chronic back pain but is unable to manage the pain today ? TECHNIQUE: CT scan of the pelvis performed ?? without ??intravenous and ?? without ??oral contrast using helical scanning technique. Reconstructed coronal and sagittal MPR images reviewed. All images stored on PACS. ??Automated exposure control was used as a dose optimization technique for this examination. COMPARISON: ?? 08/24/2023 FINDINGS: MUSCULOSKELETAL: ??No fracture or malalignment identified. ?? Advanced SI joint arthrosis. ?? PELVIC CONTENTS: ??Noninflamed sigmoid diverticula. ?? BODY WALL: ??Ventral hernia repair. ?? IMPRESSION: No acute abnormality identified. ??[id number]-wd-[id number] multilevel central canal and neural foraminal narrowing in the lower lumbar spine. ?? Chronic findings as above ?? THIS IS AN ELECTRONICALLY VERIFIED FINAL REPORT 09/18/2023 6:36 PM - Electronically signed by ??Juve Gallegos M.D. AR: VALERY D: ??09/18/2023 6:36 PM T: ??09/18/2023 6:36 PM Report ID: [id number] Reading Location: ??[id number] Procedure Note Juve Gallegos MD - 09/18/2023 EXAM DESCRIPTION: CT PELVIS WO CONTRAST REASON FOR STUDY: hip and pelvis pain Patient states lower back pain that radiates into left hip and leg. Seepain management for chronic back pain but is unable to manage the pain today TECHNIQUE: CT scan of the pelvis performed without intravenous and without oral contrast using helical scanning technique. Reconstructedcoronal and sagittal MPR images reviewed. All images stored on PACS. Automated exposure control was used as a dose optimization technique for this examination. COMPARISON: 08/24/2023 FINDINGS: MUSCULOSKELETAL: No fracture or malalignment identified. Advanced SIjoint arthrosis. PELVIC CONTENTS: Noninflamed sigmoid diverticula. BODY WALL: Ventral hernia repair. IMPRESSION: No acute abnormality identified. Phrr-ux-yqlxomfj multilevel central canal and neural foraminal narrowing in the lower lumbar spine. Chronic findings as above THIS IS AN ELECTRONICALLY VERIFIED FINAL REPORT 09/18/2023 6:36 PM - Electronically signed by Juve Gallegos M.D. AR: VALERY Report ID: [id number] Reading Location: [place] [address] Blaze Armenta NP IM CT PROCEDURES Final Result documented in this encounter Visit Diagnoses Diagnosis Chronic left-sided low back pain with left-sided sciatica- Primary Left hip pain Pain in joint, pelvic region and thigh documented in this encounter Administered Medications Inactive Administered Medications - up to 3 most recent administrations Medication Order MAR Action Action Date Dose Rate Site acetaminophen (TYLENOL) tablet 650 mg 650 mg, oral, Once, On Mon09/18/23 at 1810, For 1 dose Given 09/18/2023 6:34 PM CDT 650 mg cyclobenzaprine (FLEXERIL) tablet 10 mg 10 mg, oral, Once, On Mon09/18/23 at 1810, For 1 dose, Indications: Muscle SpasmIndications:Muscle Spasm Given 09/18/2023 6:34 PM CDT 10 mg gabapentin (NEURONTIN) capsule 300 mg 300 mg, oral, Once, On Mon09/18/23 at 1812, For 1 dose Given 09/18/2023 6:35 PM CDT 300 mg lidocaine (LIDODERM) 5 % patch 1 patch 1 patch, transdermal, Administer over 12 Hours, Daily, First dose on Mon09/18/23 at 1810, Do not cover the holes on the top side of the patch., Apply to affected area: back, Indications: painIndications:pain Medication Applied 09/18/2023 6:34 PM CDT 1 patch Back documented in this encounter Active and Recently Administered Medications Times are shown in CDT. Scheduled Medication Order 09/16/2023 09/17/2023 09/18/2023 acetaminophen (TYLENOL) tablet 650 mg (COMPLETED) 650 mg, oral, Once, On Mon09/18/23 at 1810, For 1 dose 183 (Given - Provid er: David Story RN) cyclobenzaprine (FLEXERIL) tablet 10 mg (COMPLETED) 10 mg, oral, Once, On Mon09/18/23 at 1810, For 1 dose, Indications: Muscle Spasm 183 (Given - Provid er: David Story RN) gabapentin (NEURONTIN) capsule 300 mg (COMPLETED) 300 mg, oral, Once, On Mon09/18/23 at 1812, For 1 dose 183 (Given - Provid er: David Story RN) lidocaine (LIDODERM) 5 % patch 1 patch 1 patch, transdermal, Administer over 12 Hours, Daily, First dose on Mon09/18/23 at 1810, Do not cover the holes on the top side of the patch., Apply to affected area: back, Indications: pain 1833 (Medication [place] lied - Provider: David Story RN)1925 (Due: Medication Removed - Provider: Automatic Discharge Provider - Comment: Time automatically adjusted from order being discontinued) documented in this encounter Care Teams Feed Weigher Relationship Specialty Start Date End Date Justen Gale MD [address] [place] [id number] PCP - General 10/09/17 Liu Jerez MD Consulting Physician Gastroenterology 07/28/17 [place] [id number] [facility] [address] [place] [address] Consulting Physician Pulmonary Disease 08/03/17 Khris Arthur MD [address] [facility] [address] [place] [address] Medical Oncologist/Final Inspector [employer] Medical Oncology 10/23/17 [place] [id number] [facility] [address] [place] [address] Surgeon Orthopedic Surgery 10/23/17 [place] [address] [facility] [address] [place] [address] Consulting Physician Pain Management 10/23/17 [place] [id number] [facility] [address] [place] [address] Referring Physician General Surgery 01/26/18 [place] [address] [facility] [address] [place] [address] Consulting Physician Neurology 01/26/18 documented as of this encounter
--- OUTSIDE RECORDS SUMMARY | 2024-04-26 04:18 | XMS_ITS | Encounter Summary ---
Author Organization [facility] Address [address] [place] [address] Phone Care Team Providers Care Goldsmith Apprentice Name Role Phone Liu Jerez MD Unavailable Albert Corbin MD Unavailable Justen Gale MD Primary Care Provider Khris Arthur MD Unavailable [phone] Ko Melendez MD Unavailable John Paul Moyer MD Unavailable Annel Rod MD Unavailable Anali MARSHALL MD, Carlos M. Unavailable [phone] Reason for Visit * Reason Onset Date Comments Scheduling Appointments 10/24/2023 Encounter Details Date Type Department Care Team (Late st Contact Info) Description 10/24/2023 Documentation [facility] Oncology [address] [facility] 7[address] [place] [address] [place] [address] Ricarda Wilson, [facility] Scheduling Appointments Social History Tobacco Use Types Packs/Day Years Used Date Smoking Tobacco: Former Smokeless Tobacco: Never Comments:remote tobacco use Alcohol Use Standard Drinks/Week Comments No 0 (1 standard drink = 0.6 oz pur e alcohol) [facility] Utilities Answer Date Recorded In the past [...] often do you attend chur ch or taoist services? Patient unable to answer 08/15/2023 Do you belong to any clubs o r organizations such as rastafarian groups, unions, fraternal or athletic groups, or [...] in a skilled nursing (including now)? No 08/15/2023 Personal Safety Answer Date Recorded Have you ever been in or are you currently in a harmful physical or emotional relationship or is someone making you feel afraid or unsafe? 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 I returned her call and lvm to call back to get her rescheduled. documented in this encounter Plan of Treatment Not on file documented as of this encounter Visit Diagnoses Not on filedocumented in this encounter Care Teams Goldsmith Apprentice Relationship Specialty Start Date End Date Justen Gale MD [address] [address] PCP - General 10/09/17 Liu Jerez MD Consulting Physician Gastroenterology 07/28/17 [place] [address] [facility] [address] [place] [address] Consulting Physician Pulmonary Disease 08/03/17 Khris Arthur MD [address] [facility] [address] [place] [address] Medical Oncologist/Internal Medicine Specialist Medical Oncology 10/23/17 [place] [address] [facility] [address] [place] [address] Surgeon Orthopedic Surgery 10/23/17 [place] [address] [facility] [address] [place] [address] Consulting Physician Pain Management 10/23/17 [place] [address] [facility] [address] [place] [address] Referring Physician General Surgery 01/26/18 [place] [address] [facility] [address] [place] [address] Consulting Physician Neurology 01/26/18 documented as of this encounter
--- OUTSIDE RECORDS SUMMARY | 2024-04-26 04:18 | XMS_ITS | Encounter Summary ---
Author Organization [facility] Healthcare Address [address] [place] [address] Care Team Providers Care Highway Inspector Name Role Phone Liu Jerez MD Unavailable [phone] Albert Corbin MD Unavailable [phone] Justen Gale MD Primary Care Provider [phone] Khris Arthur MD Unavailable [phone] Ko Melendez MD Unavailable John Paul Moyer MD Unavailable [phone] Annel Rod MD Unavailable Anali MARSHALL MD, Carlos M. Unavailable Reason for Visit * Reason Comments Vomiting Encounter Details Date Type Department Care Team (Late st Contact Info) Description 11/05/2023 3:55 AM CDT - 11/05/2023 8:28 AM T Emergency [facility] Emergency Department [facility] [place] [address] Ilana Stevens MD [address] [place] [address] Gil Diez, [address] [facility] [place] [address] Gastroparesis (Primary Dx) Discharge Disposition: Discharge to home or self care Social History Tobacco Use Types Packs/Day Years Used Date Smoking Tobacco: Former Smokeless Tobacco: Never Comments:remote tobacco use Alcohol Use Standard Drinks/Week Comments No 0 (1 standard drink = 0.6 oz pur e alcohol) [facility] Utilities Answer Date Recorded In the past 12 months has [employer] electric, gas, oil, or water company threatened [...] often do you attend chur ch or quaker services? Patient unable to answer 08/15/2023 Do [...] slept in a retirement (including now)? No 08/15/2023 Personal Safety Answer Date Recorded Have you ever been in or are you currently in a harmful physical or emotional relationship or is someone making you feel afraid or unsafe? Denies 10/31/2023 Comments No Sex and Gender Information Value Date Recorded Sex Assigned at Not on file Legal Sex Female 12:24 AM [employer] Gender Identity Not on file Sexual Orientation Not on file documented as of this encounter Last Filed Vital Signs Vital Sign Reading Time Taken Comments Blood Pressure 138/80 11/05/2023 6:00 AM CDT Pulse 71 11/05/2023 6:00 AM CDT Temperature 36.4 ??C (97.6 ??F) 11/04/2023 8:59 PM CD T Respiratory Rate 20 11/05/2023 6:00 AM CDT Oxygen Saturation 92% 11/05/2023 6:00 AM CDT Inhaled Oxygen Concentration - - Weight 119.3 kg (263 lb) 11/04/2023 8:59 PM CDT Height 154.9 cm (5' 1 ) 11/04/2023 8:59 PM CDT Body Mass Index 49.69 11/04/2023 8:59 PM CDT documented in this encounter Discharge Instructions * Discharge Instructions* Gil Diez DO - 11/05/2023 7:54 AM CDT Continue home medications. Call your primary care provider morning to discuss your symptoms and follow-up. * Attachments The following attachments cannot be sent through Care Everywhere. * Gastroparesis (AfterCare(R) Instructions(ER/ED)) (Maltese) documented in this encounter Medications at Time of Discharge albuterol HFA (PROVENTIL HFA,VENTOLIN HFA,PROAIR HFA) 90 mcg/actuation inhaler Inhale 2 puffs every 6 (six) hours as needed for wheezing or shortness of breath 04/19/2021 BD Ultra-Fine Short Pen Needle 31 gauge x 5/16 needle USE 6 TIMES DAILY DIRECTED 06/24/2021 blood glucose diagnostic (ErecruitTouch Ultra Test) strip 4 (four) times a [...] up to 10 doses 10 tablet 10/31/2023 4 insulin lispro (HumaLOG) 100 unit/mL injection [...] documented in this encounter ED Notes * Ilana Stevens MD - 11/05/2023 5:01 AM CDT HPI Please see triage note and nursing notes for additional details. Vomiting HPI Karly Marques is a 68 y.o. female, with PMHx as below, presenting to the emergency department with complaints of nausea and multiple episodes of nonbloody bilious emesis today. Patient relates her symptoms started after eating. Patient has a history of diabetes and gastroparesis. She also relates nonradiating periumbilical abdominal pain. She relates her pain is intermittent and worsened withemesis. She tried Zofran at home without relief. She also relates feeling short of breath and lightheaded when the pain ensues. Patient presented last week with a similar episode. She relates relief for a few days but says her symptoms have returned. She denies any urinary or bowel movement changes. She denies chest pain, fever, chills or palpitations. Patient History: Past Medical History: Diagnosis Date ??? Adiposity obesity ??? Breast CA (HCC) ??? Cancer (CMS/HCC) (HCC) breast ??? CHF (congestive heart failure) (CMS/HCC) (HCC) ??? Depression Depression ??? Diabetes (HCC) ??? Disorder of thyroid Thyroid disease ??? DVT (deep venous thrombosis) (CMS/HCC) (HCC) ??? HX OTHER MEDICAL restless leg syndrome ??? HX OTHER MEDICAL RLS ??? Hypertension Hypertension ??? Osteoarthritis osteoarthritis ??? PE (pulmonary thromboembolism) (CMS/HCC) (HCC) ??? Sleep apnea Past Surgical History: Procedure Laterality Date ??? ABSCESS CATHETER INJECTION N/A 11/26/2014 ??? ABSCESS CATHETER INJECTION N/A 11/26/2014 ??? ABSCESS CATHETER INJECTION N/A 11/14/2014 ??? ABSCESS CATHETER INJECTION N/A 11/05/2014 ??? ABSCESS TUBE EXCHANGE N/A 11/05/2014 ??? BREAST SURGERY ??? SECTION section ??? CHOLECYSTECTOMY Cholecystectomy ??? CHOLECYSTECTOMY gallbladder surgery ??? CHOLECYSTECTOMY gallbladder removal ??? HERNIA REPAIR Hernia repair ??? INGUINAL HERNIA REPAIR Hernia repair, inguinal ??? IR FINE NEEDLE ASPIRATION W IMAGE GUIDANCE N/A 07/25/2014 ??? JOINT REPLACEMENT ??? KNEE ARTHROPLASTY Knee replacement ??? KNEE ARTHROPLASTY R knee replacement ??? MASTECTOMY ??? OOPHORECTOMY ovary removed ??? OTHER SURGICAL HISTORY 2012 : Right Total Knee Replacement ??? OTHER SURGICAL HISTORY R ovary removed ? ? PORT PLACEMENT CHEST >5 YEARS N/A 11/05/2021 ??? US SOFT TISSUE ABSCESS DRAIN N/A 12/11/2014 ??? US SOFT TISSUE ABSCESS DRAIN N/A 10/24/2014 Family History Problem Relation Age of Onset ??? Heart failure Mother Congestive Heart Failure; ??? Stroke Mother Stroke; Cause of : Stroke ??? Heart disease Mother Heart disease; ??? Diabetes Mother Diabetes mellitus; ??? Other Mother heart diesease; Cause of : heart diesease ??? Heart attack Brother Myocardial Infarction; Cause of : Myocardial Infarction ??? Stent Brother Coronary Stent Placement; ??? Prostate cancer Father Cancer, prostate; /Cancer, prostate; Cause of : Cancer, prostate ??? Other Father hemochromotosis; ??? Breast cancer Sister Cancer, breast; ??? Other Other Family history of restless leg syndrome; Social History Tobacco Use ??? Smoking status: Former ??? Smokeless tobacco: Never ??? Tobacco comments: remote tobacco use Substance and Sexual Activity ??? Drug use: Never ??? Sexual activity: Defer Alcohol Use: Not At Risk (06/16/2023) Received from [facility] [employer], [facility] [employer] AUDIT-C ??? Frequency of Alcohol Consumption: Never ??? Average Number of Drinks: Patient does not drink ??? Frequency of Binge Drinking: Never No current facility-administered medications for this encounter. Current Outpatient Medications: ??? albuterol HFA (PROVENTIL HFA,VENTOLIN HFA,PROAIR HFA) 90 mcg/actuation inhaler ??? BD Ultra-Fine Short Pen Needle 31 gauge x 5/16 needle ??? blood glucose diagnostic (OneTouch Ultra Test) strip ??? dicyclomine (BENTYL) 10 mg capsule ??? exemestane (AROMASIN) 25 mg tablet ??? gabapentin (NEURONTIN) 300 mg capsule ??? HYDROcodone-acetaminophen (NORCO) 5-325 mg per tablet ??? insulin glargine 100 unit/mL vial for injection ??? insulin lispro (HumaLOG) 100 unit/mL injection ??? methocarbamoL (ROBAXIN) 500 mg tablet ??? naloxone (NARCAN) 4 mg/actuation spray,non-aerosol ??? ondansetron ODT (ZOFRAN-ODT) 4 mg disintegrating tablet ??? oxyBUTYnin XL (DITROPAN XL) 15 mg 24 hr tablet ??? rivaroxaban (Xarelto) 20 mg tablet ??? rOPINIRole (REQUIP) 5 mg tablet Review of Systems Review of Systems Constitutional: Negative for chills and fever. HENT: Negative for ear pain and sore throat. Eyes: Negative for pain and visual disturbance. Respiratory: Positive for shortness of breath. Negative for cough. Cardiovascular: Negative for chest pain and palpitations. Gastrointestinal: Positive for abdominal pain, nausea and vomiting. Genitourinary: Negative for dysuria and hematuria. Musculoskeletal: Negative for arthralgias and back pain. Skin: Negative for color change and rash. Neurological: Negative for seizures and syncope. All other systems reviewed and are negative. All systems reviewed and are neg or non contributory for this patients presentation today other than as stated in the HPI . Physical Exam ED Triage Vitals [11/04/232058] Temp Pulse Resp BP SpO2 36.4 ??C (97.6 ??F) 81 20 152/79 99 % Temp src Heart Rate Source Patient Position BP Location FiO2 (%) Tympanic -- -- -- -- Height Height Method Weight Weight Method 1.549 m (5' 1 ) Stated 119.3 kg (263 lb) Standing scale Physical Exam GENERAL: Patient is conscious and alert; in mild acute distress. Pleasant elderly morbidly obese woman appearing uncomfortable. HEAD: Head is normocephalic and atraumatic. EYES: Extraocular muscles are intact. PERRLA. ENT: Dry mucous membranes. The uvula is midline in the oropharynx. NECK: Trachea is midline. Neck is supple. LUNGS: Lungs are clear to auscultation bilaterally. There is fair respiratory effort. CARDIOVASCULAR: S1,S2, regular rate and regular rhythm. No pitting edema. ABDOMEN: Soft with periumbilical tenderness to palpation. There is no guarding or rebound. Hypoactive bowel sounds. MUSCULOSKELETAL: There is no obvious deformity. No atrophy. No contractions. SKIN: Skin is warm and dry. There is no gross rash. NEUROLOGIC: Patient is oriented x 4. No focal neurologic defect is noted. Patient is able to move both upper and lower extremities against gravity. Sensation is grossly intact. PSYCH: Normal affect. No SI/HI. Procedures MDM Labs Reviewed CBC WITH AUTO DIFFERENTIAL - Abnormal Result Value WBC 11.1 (*) Hgb 13.4 Hct 41.7 Plt 268 MPV 9.7 RBC 4.71 MCV 88.5 MCH 28.5 MCHC 32.1 (*) RDW CV 13.8 RDW SD 45.0 NRBC abs 0.00 DIFFERENTIAL AUTO - Abnormal Neutrophil abs 7.0 (*) Imm gran abs 0.0 Lymphocyte abs 3.1 Monocyte abs 0.7 Eosinophil abs 0.3 Basophil abs 0.0 Neutrophil pct 62.7 Imm gran pct 0.4 Lymphocyte pct 27.5 Monocyte pct 6.2 Eosinophil pct 2.8 Basophil pct 0.4 URINALYSIS AND REFLEX TO MICROSCOPIC AND CULTURE COMPREHENSIVE METABOLIC PANEL Sodium 137 Potassium, pl 4.2 Chloride 97 CO2 26 Anion gap 14 BUN 16 Creatinine 0.70 Glucose 161 Calcium 9.4 Bilirubin, total 0.5 Protein, pl 8.4 Albumin 3.9 Alk phos 95 ALT 14 AST 20 LIPASE Lipase 20 BETA-HYDROXYBUTYRATE Beta-Hydroxybutyrate 0.0 LACTATE Lactate 1.4 EGFR eGFR >90 POCT GLUCOSE DEVICE Glucose, POC 152 Glucose comment [address] Abdomen Pelvis W Contrast EXAM [...] IODINE/ML INTRAVENOUS SYRINGE injected via intravenous COMPARISON: 09/18/2023 FINDINGS: LOWER CHEST: No significant pulmonary abnormalities. No effusion. Several small nodules at the left lung [...] fluid collections. Pancreatic duct not dilated. ADRENALS: Normal. KIDNEYS/URINARY TRACT: No identified significant cystic or solid masses. No visualized stones. No hydronephrosis or hydroureter. Symmetric enhancement. Urinary bladder is unremarkable. GI: No dilated bowel loops. No obvious wall thickening. Normal appendix. No significant diverticular disease. PERITONEUM: No ascites or free air. RETROPERITONEUM: No mass or adenopathy. REPRODUCTIVE: No significant abnormality. VASCULATURE: No abdominal aortic aneurysm. MUSCULOSKELETAL: No significant abnormality. Implanted device of the lower thoracic spine is noted. OTHER: Surgical repair of the lower anterior abdominal wall is noted. IMPRESSION: No acute finding. THIS IS AN ELECTRONICALLY VERIFIED FINAL REPORT 10/31/2023 5:45 PM - Electronically signed by Patrick Zhou M.D. KH: KH Report ID: [id number] Reading Location: [id number] XR Chest 1 Vw Portable EXAM DESCRIPTION: XR CHEST 1 VIEW REASON [...] Olinda Bernal M.D. FT: FT Report ID: [id number] Reading Location: [id number] BP 138/80 Pulse 71 Temp 36.4 ??C (97.6 ??F) (Tympanic) Resp 20 Ht 154.9 cm (5' 1 ) Wt 119.3 kg (263 lb) SpO2 92% BMI 49.69 kg/m?? MDM Medical Decision Making Clinical problems/summary: Karly Marques is a 68 y.o. female who presents with complaints of nausea and multiple episodes of nonbloody bilious emesis today. Patient relates her symptoms started after eating. Patient has a history of diabetes and gastroparesis. She also relates nonradiating periumbilical abdominal pain. She relates her pain is intermittent and worsened with emesis. She tried Zofran at home without relief. She also relates feeling short of breath and lightheaded when the painensues. -General plan/Tests/Ddx: Will order: basic labs, lipase, UA, IVF, zofran, pepcid, analgesia, PO challenge and reassess. Considering Ddx which includes: Diabetic gastroparesis, Gastritis, pancreatitis, enteritis, peptic ulcer disease, electrolyte disorder, occult infection, perforated viscus, among other etiologies. Data analysis -Independent historian. -Patient seen and evaluated, available studies reviewed. -Prior available records reviewed, triage notes reviewed. --Chronic illnesses or exacerbation of chronic illness: yes OR -Acute/chronic illness that poses threat to life/bodily function: no. -Interpretation of tests: Please see ED course. Discussion with other providers/consultants/hospitalist/playground official: yes. Risk of complications form testing and/or treatment Tests considered: see above. Medications considered: see above. Care affected by social determinants of health: no. Explanation of disposition: Results and plan explained to the patient, patient understands agrees. All questions answered. Amount and/or Complexity of Data Reviewed Clinical lab tests: ordered / reviewed. Tests in the radiology section: reviewed. ECG/medicine tests: ordered/ reviewed. External Data Reviewed: notes. Details: Care everywhere reviewed. Decide to obtain previous medical records or to obtain history from someone other than the patient:yes Explanation of disposition: Results and plan explained to the patient, patient understands and agrees. All questions answered. ED Course -Patient seen and evaluated, available studies reviewed. -Prior available records reviewed, triage notes reviewed. -Vital signs stable, afebrile. ED Course as of 11/05/23 0644 Time: 11/04 05 Comment: CT ABDOMEN PELVIS W CONTRAST MPRESSION: No acute finding. THIS IS AN ELECTRONICALLY VERIFIED FINAL REPORT 10/31/2023 5:45 PM By: Ilana Stevens MD Time: 11/04 06 Comment: Patient signed out to oncoming provider, Dr. Diez, pending further workup. Vitals stable at sign out. By: Ilana Stevens MD This examination was transcribed using the [employer] voice recognition system without human director of nursing. In an effort to expedite patient care, this report has not been adjusted for typographical, grammatical, and syntax by a trained medical dir. Clinical Impression: No diagnosis found. Ilana Stevens MD 11/05/23 0641 * Jane Buenrostro RN - 11/04/2023 8:49 PM CDT Vomiting with eating today with hx of chronic gastroparesis and IDDM. Here last week with same complaint. Accucheck in triage 152. documented in this encounter Miscellaneous Notes * ED Re-evaluation Note - Gil Diez DO - 11/05/2023 7:54 AM CDT ED Re-evaluation Patient signed out to me this morning by Dr. Stevens for re-evaluation after medications. Patient reports gastroparesis with vomiting similar to previous episodes. Was seen in the ED on 10/[address] scan showing no acute findings. Patient received Pepcid, Zofran, and fentanyl in the ED. will avoid further narcotics due to gastroparesis and chronic pain. Patient stated nausea is better still having pain. Abdomen is non focally tender without guarding or rebound. Labs today are unremarkable. Mysuspicion for acute process is low. Patient has multiple allergies. She stated Reglan and Ativan make her restless leg worse. She was given a dose of droperidol for pain and she is restless and stating restless legs symptoms. She is not vomiting this morning and stable from a GI standpoint for discharge. Given a dose of Benadryl for restlessness. Patient declined another dose. Gil Diez DO 11/05/23 0758 documented in this encounter Plan of Treatment Scheduled Orders Name Type Priority Associated Diagnoses Orde r Schedule Urinalysis reflex to microscopic and culture Urine Microbiology STAT STAT for 1 Occurrences starting 11/04/2023 until 11/04/2023 documented as of this encounter Procedures Procedure Name Priority Date/Time Associated Diagnosis Comments LACTATE STAT 11/04/2023 8:59 PM CDT BETA-HYDROXYBUTYRATE STAT 11/04/2023 8:59 PM CDT EGFR STAT 11/04/2023 8:58 PM CDT DIFFERENTIAL AUTO STAT 11/04/2023 8:5 8 PM CDT CBC WITH AUTO DIFFERENTIAL STAT 11/04/2023 8:58 PM CDT LIPASE STAT 11/04/2023 8:58 PM CDT COMPREHENSIVE METABOLIC PANEL STAT 11/04/2023 8:58 PM CDT POCT GLUCOSE DEVICE Routine 11/04/2023 8 :57 PM CDT documented in this encounter Results * Lactate (11/04/2023 8:59 PM CDT) Lactate 1.4 0.7 - 2.0 mmol/L Comment:Testing performed by : [facility], [address] [place] [address], [place]., [address] Blood 11/04/2023 8:59 PM CDT 11/04/2023 9:10 PM CDT us Ilana Stevens MD LAB BLOOD ORDERABLES F inal Result Performing Organization Address City/[facility]/ZIP Co de Phone Number MARY JANE [address] [place] [address] * Beta-hydroxybutyrate (11/04/2023 8:59 PM CDT) [facility] Beta-Hydroxybut yrate 0.0 <=0.5 mmol/L Blood 11/04/2023 8:59 PM CDT 11/04/2023 10:49 PM CDT Ilana Stevens MD LAB BLOOD ORDERABLES F inal Result Performing Organization Address [facility]/RUST de Phone Number MARY JANE [address] [place] [employer] [address] * eGFR (11/04/2023 8:58 PM CDT) [facility] eGFR >90 >=60 mL/min/1. 73 m2 Comment: [...] was last reviewed 2021. Testing performed by: [address] [address] Blood 11/04/2023 8:58 PM CDT 11/04/2023 9:10 PM CDT Ilana Stevens MD LAB BLOOD ORDERABLES F inal Result [facility] [address] [facility] [place] [address] * (ABNORMAL) Differential, auto (11/04/2023 8:58 PM CDT) Neutrophil abs 7.0(H) 1.5 - 6.5 K/cumm Comment:Testing performed by : [address] [address] Imm gran abs 0.0 0.0 - 0.1 K/cumm MARY JANE Comment:Testing performed by : [address] [address] Lymphocyte abs 3.1 0.8 - 3.3 K/cumm MARY JANE Comment:Testing performed by : [address] [address] Monocyte abs 0.7 0.2 - 0.8 K/cumm MARY JANE Comment:Testing performed by : [address] [address] Eosinophil abs 0.3 0.0 - 0.5 K/cumm MARY JANE Comment:Testing performed by : [address] [address] Basophil abs 0.0 0.0 - 0.1 K/cumm MARY JANE Comment:Testing performed by : [address] [address] Neutrophil pct 62.7 % MARY JANE Comment: Interpretive Data Percent cell count reference ranges are not reported, since discordance with absolute values may lead to misinterpretation of CBC data. Current Interpretive Data was last revised on 2017. Testing performed by: [address] [address] Imm gran pct 0.4 % [facility] Comment: Interpretive Data Percent cell count reference ranges are not reported, since discordance with absolute values may lead to misinterpretation of CBC data. Current Interpretive Data was last revised on 2017. Testing performed by: [address] [address] Lymphocyte pct 27.5 % [facility] Comment: Interpretive Data Percent cell count reference ranges are not reported, since discordance with absolute values may lead to misinterpretation of CBC data. Current Interpretive Data was last revised on 2017. Testing performed by: [address] [address] Monocyte pct 6.2 % [facility] Comment: Interpretive Data Percent cell count reference ranges are not reported, since discordance with absolute values may lead to misinterpretation of CBC data. Current Interpretive Data was last revised on 2017. Testing performed by: [address] [address] Eosinophil pct 2.8 % [facility] Comment: Interpretive Data Percent cell count reference ranges are not reported, since discordance with absolute values may lead to misinterpretation of CBC data. Current Interpretive Data was last revised on 2017. Testing performed by: [address] [address] Basophil pct 0.4 % [facility] Comment: Interpretive Data Percent cell count reference ranges are not reported, since discordance with absolute values may lead to misinterpretation of CBC data. Current Interpretive Data was last revised on 2017. Testing performed by: [address] [address] Blood 11/04/2023 8:58 PM CDT 11/04/2023 9:10 PM CDT us Ilana Stevens MD LAB BLOOD ORDERABLES F inal Result [facility] [address] [facility] [place] [address] * Lipase (11/04/2023 8:58 PM CDT) Pathologist [facility] Lipase 20 10 - 99 Units/L Comment:Testing performed by : [address] [address] Blood (Blood, Venous) 11/04/2023 8:58 PM CDT 11/04/2023 9:10 PM CDT us Ilana Stevens MD LAB BLOOD ORDERABLES F inal Result [facility] [address] [facility] Department [place] [address] * Comprehensive metabolic panel (11/04/2023 8:58 PM CDT) Pathologist [facility] Sodium 137 135 - 145 mmol/L Comment:Testing performed by : [address] [address] Potassium, pl 4.2 3.3 - 4.9 mmol/L MARY JANE Comment:Testing performed by : [address] [address] Chloride 97 97 - 110 mmol/L MARY JANE Comment:Testing performed by : [address] [address] CO2 26 22 - 32 mmol/L MARY JANE Comment:Testing performed by : [address] [address] Anion gap 14 2 - 15 mmol/L MARY JANE Comment:Testing performed by : [address] [address] BUN 16 6 - 25 mg/dL MARY JANE Comment:Testing performed by : [address] [address] Creatinine 0.70 0.60 - 1.10 mg/dL MARY JANE Comment:Testing performed by : [address] [address] Glucose 161 70 - 199 mg/dL MARY JANE Comment: [...] was last revised 2022. Testing performed by: [address] [address] Calcium 9.4 8.5 - 10.3 mg/dL MARY JANE Comment:Testing performed by : [address] [address] Bilirubin, total 0.5 0.1 - 1.2 mg/dL MARY JANE Comment:Testing performed by : [address] [address] Protein, pl 8.4 6.5 - 8.5 g/dL MARY JANE Comment:Testing performed by : [address] [address] Albumin 3.9 3.5 - 5.0 g/dL MARY JANE Comment:Testing performed by : [address] [address] Alk phos 95 40 - 130 Units/L MARY JANE Comment:Testing performed by : [address] [address] ALT 14 7 - 45 Units/L MARY JANE Comment:Testing performed by : [address] [address] AST 20 10 - 45 Units/L MARY JANE Comment:Testing performed by : [address] [address] Blood 11/04/2023 8:58 PM CDT 11/04/2023 9:10 PM CDT us Ilana Stevens MD LAB BLOOD ORDERABLES F inal Result [facility] [address] [facility] [place] [address] * (ABNORMAL) CBC with auto differential (11/04/2023 8:58 PM CDT) [facility] WBC 11.1(H) 3.8 - 9.9 K/cumm Comment:Testing performed by : [address] [address] Hgb 13.4 11.9 - 15.5 g/dL MARY JANE Comment:Testing performed by : [address] [address] Hct 41.7 35.6 - 45.5 % MARY JANE Comment:Testing performed by : [address] [address] Plt 268 150 - 400 K/cumm MARY JANE Comment:Testing performed by : [address] [address] MPV 9.7 9.1 - 12.3 fL MARY JANE Comment:Testing performed by : [address], [address] RBC 4.71 3.90 - 5.20 M/cumm MARY JANE Comment:Testing performed by : [address] [address] MCV 88.5 81.3 - 96.4 fL MARY JANE Comment:Testing performed by : [address] [address] MCH 28.5 27.1 - 33.3 pg MARY JANE Comment:Testing performed by : [address] [address] MCHC 32.1(L) 32.3 - 35.7 g/dL MARY JANE Comment:Testing performed by : [address] [address] RDW CV 13.8 11.1 - 14.9 % MARY JANE Comment:Testing performed by : [address] [address] [address] RDW SD 45.0 35.7 - 48.1 fL MARY JANE Comment:Testing performed by : [address] [address] NRBC abs 0.00 0.00 - 0.01 K/cumm MARY JANE Comment:Testing performed by : [address] [address] Blood (Blood, Venous) 11/04/2023 8:58 PM CDT 11/04/2023 9:10 PM CDT Ilana Stevens MD LAB BLOOD ORDERABLES F inal Result Performing Organization Address [facility] de Phone Number MARY JANE [facility] [place] [address] * POCT glucose (11/04/2023 8:57 PM CDT) [facility] Glucose, POC 152 70 - 199 mg/dL Comment:Testing performed by : [address] [address] Glucose comment 1 Use This Result MARY JANE Comment:Testing performed by : [address] [address] Blood 11/04/2023 8:57 PM CDT 11/04/2023 8:57 PM CDT us Notinfile Unknown LAB POCT ORDERABLES - DEVICE F inal Result Performing Organization Address [facility] de Phone Number [address] [address] documented in this encounter Visit Diagnoses Diagnosis Gastroparesis- Primary documented in this encounter Administered Medications Inactive Administered Medications - up to 3 most recent administrations Medication Order MAR Action Action Date Dose Rate Site diphenhydrAMINE (BENADRYL) 50 mg/mL injection 25 mg 25 mg, intravenous, Administer over 2 Minutes, Once, On 11/05/23 at 0701, For 1 dose Given 11/05/2023 7:10 AM CDT 25 mg droPERidol (INAPSINE) injection 1.25 mg 1.25 mg, intravenous, Administer over 5 Minutes, Once, On 11/05/23 at 0622, For 1 dose Given 11/05/2023 6:34 AM CDT 1.25 mg famotidine (PEPCID) injection 20 mg 20 mg, intravenous, Administer over 2 Minutes, Once, On 11/05/23 at 0516, For 1 dose Given 11/05/2023 5:25 AM CDT 20 mg fentaNYL (SUBLIMAZE) preservative free injection 50 mcg 50 mcg, intravenous, Once, On 11/05/23 at 0516, For 1 dose Given 11/05/2023 5:25 AM CDT 50 mcg ondansetron (ZOFRAN) injection 4 mg 4 mg, intravenous, Administer over 2 Minutes, Once, On 11/05/23 at 0516, For 1 dose Given 11/05/2023 5:25 AM CDT 4 mg sodium chloride 0.9% bolus 1,000 mL 1,000 mL, intravenous, Once, On 11/05/23 at 0516, For 1 dose New Bag 11/05/2023 5:24 AM CDT 1,000 mL documented in this encounter Active and Recently Administered Medications Times are shown in CDT. Scheduled Medication Order 11/03/2023 11/04/2023 11/05/2023 diphenhydrAMINE (BENADRYL) 50 mg/mL injection 25 mg (COMPLETED) 25 mg, intravenous, Administer over 2 Minutes, Once, On 11/05/23 at 0701, For 1 dose 0710 (Given - Provid er: Leah Coon RN) droPERidol (INAPSINE) injection 1.25 mg (COMPLETED) 1.25 mg, intravenous, Administer over 5 Minutes, Once, On 11/05/23 at 0622, For 1 dose 0634 (Given - Provid er: Jayson Lawrence RN) famotidine (PEPCID) injection 20 mg (COMPLETED) 20 mg, intravenous, Administer over 2 Minutes, Once, On 11/05/23 at 0516, For 1 dose 0525 (Given - Provid er: Jo De RN) fentaNYL (SUBLIMAZE) preservative free injection 50 mcg (COMPLETED) 50 mcg, intravenous, Once, On 11/05/23 at 0516, For 1 dose 0525 (Given - Provid er: Jo De RN) ondansetron (ZOFRAN) injection 4 mg (COMPLETED) 4 mg, intravenous, Administer over 2 Minutes, Once, On 11/05/23 at 0516, For 1 dose 0525 (Given - Provid er: Jo De RN) sodium chloride 0.9% bolus 1,000 mL (COMPLETED) 1,000 mL, intravenous, Once, On 11/05/23 at 0516, For 1 dose 0524 (New Bag - Prov ider: Jo De RN)0624 (Stopped - Provider: Leah Coon RN) documented in this encounter Care Teams Highway Inspector Relationship Specialty Start Date End Date Justen Gale MD [address] [address] PCP - General 10/09/17 Liu Jerez MD Consulting Physician Gastroenterology 07/28/17 [place] [address] [facility] [address] [place] [address] Consulting Physician Pulmonary Disease 08/03/17 Khris Arthur MD [address] [facility] [address] [place] [address] Medical Oncologist/Contact Center Engineer Medical Oncology 10/23/17 [place] [address] [facility] [address] [place] [address] Surgeon Orthopedic Surgery 10/23/17 [place] [address] [facility] [address] [place] [address] Consulting Physician Pain Management 10/23/17 [place] [address] [facility] [address] [place] [address] Referring Physician General Surgery 01/26/18 [place] [address] [facility] [address] [place] [address] Consulting Physician Neurology 01/26/18 documented as of this encounter
--- OUTSIDE RECORDS SUMMARY | 2024-04-26 04:18 | XMS_ITS | Encounter Summary ---
Author Organization [facility] Address [address] [place] [address] Phone Care Team Providers Care Mems Process Engineer Name Role Phone Liu Jerez MD Unavailable [phone] Albert Corbin MD Unavailable [phone] Justen Gale MD Primary Care Provider Khris Arthur MD Unavailable [phone] Ko Melendez MD Unavailable John Paul Moyer MD Unavailable Annel Rod MD Unavailable Anali MARSHALL MD, Carlos M. Unavailable [phone] Encounter Details Date Type Department Care Team (Latest Contact Info) Description 10/02/2023 Orders Only [facility] Scanning, Provider Social History Tobacco Use Types Packs/Day Years Used Date Smoking Tobacco: Former Smokeless Tobacco: Never Comments:remote tobacco use Alcohol Use Standard Drinks/Week Comments No 0 (1 standard drink = 0.6 oz pur e alcohol) [facility] Utilities Answer Date Recorded [...] often do you attend chur ch or sabianism services? Patient unable to answer [...] slept in a chcf (including now)? No 08/15/2023 Personal Safety Answer Date Recorded Have you ever been in or are you currently in a harmful physical or emotional relationship or is someone making you feel afraid or unsafe? 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 Gender Identity Not on file Sexual Orientation Not on file documented as of this encounter Plan of Treatment Not on file documented as of this encounter Procedures Procedure Name Priority Date/Time Associated Diagnosis Comments SCAN - RADIOLOGY/IMAGING 10/02/2023 SCAN - LABS 10/02/2023 documented in this encounter Results * SCAN - LABS (10/02/2023) us Provider Scanning Final Result * SCAN - RADIOLOGY/IMAGING (10/02/2023) Anatomical Region Laterality Modality Other us Provider Scanning Final Result documented in this encounter Visit Diagnoses Not on filedocumented in this encounter Care Teams Mems Process Engineer Relationship Specialty Start Date End Date Justen Gale MD [address] [place] [address] PCP - General 10/09/17 Liu Jerez MD Consulting Physician Gastroenterology 07/28/17 [place] [address] [facility] [address] [place] [address] Consulting Physician Pulmonary Disease 08/03/17 Khris Arthur MD 49[address] [facility] [address] [place] [address] Medical Oncologist/Broadloom Weaver Medical Oncology 10/23/17 [place] [address] [facility] [address] [place] [address] Surgeon Orthopedic Surgery 10/23/17 [place] [address] [facility] [address] [place] [address] Consulting Physician Pain Management 10/23/17 [place] [address] [facility] [address] [place] [address] Referring Physician General Surgery 01/26/18 [place] [address] [facility] [address] [place] [address] Consulting Physician Neurology 01/26/18 documented as of this encounter
--- OUTSIDE RECORDS SUMMARY | 2024-04-26 04:19 | XMS_ITS | Encounter Summary ---
Author Organization [facility] Address [address] [id number] Care Team Providers Care Pattern Hand Name Role Phone Liu Jerez MD Unavailable Albert Corbin MD Unavailable [phone] Justen Gale MD Primary Care Provider [phone] Khris Arthur MD Unavailable [phone] Ko Melendez MD Unavailable John Paul Moyer MD Unavailable Annel Rod MD Unavailable Anali MARSHALL MD, Carlos M. Unavailable Reason for Visit * Reason Comments Rash Itching denies any c hanges in meds lotions or soaps did do some gardening recently Encounter Details Date Type Department Care Team (Late st Contact Info) Description 09/14/2022 7:00 PM CDT Office Visit [facility] Outpatient Center [address] [address] Bebe Waters [place] [address] [place] [address] Pruritus (Primary Dx) Social History Tobacco Use Types Packs/Day Years Used Date Smoking Tobacco: Former Smokeless Tobacco: Never Comments:remote tobacco use Alcohol Use Standard Drinks/Week Comments No 0 (1 standard drink = 0.6 oz pur e alcohol) Social Connection and Isolat ion Panel [NHANES] Answer Date Recorded In a typical week, how many times do you talk on the phone with family, friends, or neighbors? More than three times a week 02/11/2022 How often do you get togethe r with friends or relatives? More than three times a week 02/11/2022 How often do you attend chur or mandaeism services? Never 02/11/2022 Do you belong to any clubs o r organizations such as religion groups, unions, fraternal or athletic groups, or school groups? No 02/11/2022 How often do you attend meet ings of the clubs or organizations you belong to? Never 02/11/2022 Are you , , di vorced, , never , or living with a partner? 02/11/2022 AUDIT-C Answer Date Recorded Q1: How often [...] care, and heating? Not hard at all 02/11/2022 PHQ-2 Answer Date Recorded PHQ-2 Score 1 12/15/2018 Hunger Vital Sign Answer Date Recorded Within the past 12 months, y ou worried that your food would run out before you got the money to buy more. Never true 02/12/20 22 Within the past 12 months, t he food you bought just didn't last and you didn't have money to get more. Never true 02/11/2022 PRAPARE - Transportation Answer Date Re corded In the past 12 months, has l ack of transportation kept you from medical appointments or from getting medications? No 01/23 In the past 12 months, has l ack of transportation kept you from meetings, work, or from getting things needed for daily living? No 02/11/2022 Housing Stability Vital Sign Answer [place] e Recorded In the last 12 months, was t here a time when you were not able to pay the mortgage or rent on time? No 02/11/2022 In the last 12 months, how many places have you lived? 1 02/11/2022 In the last 12 months, was t here a time when you did not have a steady place to sleep or slept in a long term (including now)? 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 Gender Identity Not on file Sexual Orientation Not on file documented as of this encounter Last Filed Vital Signs Vital Sign Reading Time Taken Comments Blood Pressure 148/88 09/14/2022 6:50 PM CDT Pulse 90 09/14/2022 6:50 PM CDT Temperature 36.9 ??C (98.4 ??F) 09/14/2022 6:50 PM CD T Respiratory Rate 20 09/14/2022 6:50 PM CDT Oxygen Saturation 99% 09/14/2022 6:50 PM CDT Inhaled Oxygen Concentration - - Weight 130.2 kg (287 lb) 09/14/2022 6:50 PM CDT Height 154.9 cm (5' 0.98 ) 09/14/2022 6:50 PM CD T Body Mass Index 54.26 09/14/2022 6:50 PM CDT documented in this encounter Patient Instructions * Patient Instructions* Bebe Waters NP - 09/14/2022 7:00 PM CDT Patient to call and schedule appointment with PCP tomorrow -Can use prescribed medication as directed -Can use benadryl as needed for itching, use as directed and not at same time as hydroxyzine -Monitor symptoms and if they worsen go to ER * Attachments The following attachments cannot be sent through Care Everywhere. * Itchy Skin (Discharge Care) (French) documented in this encounter Ordered Prescriptions Prescription Sig Dispense Quantity Refills Last Filled Start Date End Date hydrOXYzine (ATARAX) 10 mg tabletIndications: Pruritus of Skin Take 1 tablet (10 mg total) by mouth 2 (two) times a day as needed for itching for up to 7 days 14 tablet 09/14/2022 4 documented in this encounter Progress Notes * Bebe Waters, CURTIS - 09/14/2022 7:00 PM CDT Images from the original note were not included. Subjective/Objective Patient ID: Karly Marques is a 67 y.o. female. Chief Complaint Rash (Itching denies any changes in meds lotions or soaps did do some gardening recently ) Patient presents to the clinic with reports of generalized itching for 4 days. Patient denies rash,new foods, new medications, new lotions, new detergents, difficulty breathing, and fever. Patient has been taking Benadryl with mild relief of her itching. Patient denies any recent travel. Review of Systems Constitutional: Negative for chills, fatigue and fever. Eyes: Negative for visual disturbance. Respiratory: Negative for cough, shortness of breath and wheezing. Cardiovascular: Negative for chest pain. Skin: Negative for color change, rash and wound. Itching Neurological: Negative for dizziness, weakness and headaches. Physical Exam Vitals reviewed. Constitutional: General: She is not in acute distress. Appearance: Normal appearance. She is not ill-appearing. HENT: Head: Normocephalic. Mouth/Throat: Lips: [place]. Eyes: General: Lids are normal. Conjunctiva/sclera: Right eye: Right conjunctiva is not injected. No chemosis or exudate. Left eye: Left conjunctiva is not injected. No chemosis or exudate. Comments: Sclera clear Cardiovascular: Rate and Rhythm: Normal rate. Pulmonary: Effort: Pulmonary effort is normal. No respiratory distress. Breath sounds: Normal breath sounds. No decreased breath sounds, wheezing or rhonchi. Skin: General: Skin is warm. Coloration: Skin is not ashen, jaundiced or pale. Findings: No abrasion or rash. Rash is not urticarial. Neurological: Mental Status: She is alert and oriented to person, place, and time. Psychiatric: Mood and Affect: Mood normal. Vitals: 09/14/22 1850 BP: 148/88 BP Location: Right arm Patient Position: Sitting Pulse: 90 Resp: 20 Temp: 36.9 ??C (98.4 ??F) TempSrc: Oral SpO2: 99% Weight: 130.2 kg (287 lb) Height: 154.9 cm (5' 0.98 ) Assessment/Plan Patient to call and schedule appointment with PCP tomorrow. Discussed need for possible blood work to determine if there is an underlining reason for itching. -Can use prescribed medication as directed -Can use benadryl as needed for itching, use as directed and not at same time as hydroxyzine -Monitor symptoms and if they worsen she will go to ER Diagnoses and all orders for this visit: Pruritus (Primary) - hydrOXYzine (ATARAX) 10 mg tablet; Take 1 tablet (10 mg total) by mouth 2 (two) times a day as needed for itching for up to 7 days Patient Education: Itchy Skin WHAT YOU NEED TO KNOW: Itchy skin may interfere with your daily tasks and sleep. Treatment is important because constant scratching can damage your skin and increase your risk of infection. DISCHARGE INSTRUCTIONS: Medicines: Medicines may help decrease itching or inflammation. Skin creams, such as steroid creams or anti-itch creams may also help. Take your medicine as directed. Contact your healthcare provider if you think your medicine is not helping or if you have side effects. Tell your provider if you are allergic to any medicine. Keep a list of the medicines, vitamins, and herbs you take. Include the amounts, and when and why you take them. Bring the list or the pill bottles to follow-up visits. Carry your medicine list with you in case of an emergency. Follow up with your healthcare provider as directed: Write down your questions so you remember to ask them during your visits. Manage itchy skin: Take short showers in warm water. Avoid using hot water for your showers. Use only a small amount of mild skin cleanser. Apply moisturizer or cooling creams after you bathe and throughout the day. Use a cool mist humidifier to moisten the air in your home and maintain a cool temperature. Cool, humid air can decrease skin dryness and itching. Avoid allergens and skin irritants. Do not use perfume, fabric softener, or makeup that irritates your skin. Use a mild detergent to wash your clothes. Wear loose cotton clothes and use cotton sheets. Avoid wool. Contact your healthcare provider if: Your itching does not improve or gets worse. Scratching has caused your skin to be red or swollen. You have new symptoms such as weight loss, fatigue, changes in urination, or fever. You have questions or concerns about your condition or care. ?? Copyright [employer] 2021 Information is for End User's use only and may not be sold, redistributed or otherwise used for commercial purposes. All illustrations and images included in CareNotes?? are the copyrighted property of [employer]. or [employer] The above information is an educational resource coordinator only. It is not intended as medical advice for individual conditions or treatments. Talk to your doctor, nurse or pharmacist before following any medical regimen to see if it is safe and effective for you. Disposition Treatment plan including expectations, follow up, and return precautions discussed with patient/parent, verbalizes understanding. Medication dosage, use, and potential adverse reactions discussed with patient/parent. Advised to follow up with PCP if symptoms do not resolve as expected or sooner if condition worsens. Signs/symptoms warranting ER evaluation reviewed. Patient and/or guardian was given an opportunity to ask questions, questions answered. Bebe Waters NP 09/14/22 7:19 PM documented in this encounter Plan of Treatment Not on file documented as of this encounter Visit Diagnoses Diagnosis Pruritus- Primary Unspecified pruritic disorder documented in this encounter Care Teams Pattern Hand Relationship Specialty Start Date End Date Justen Gale MD [address] [address] PCP - General 10/09/17 Liu Jerez MD Consulting Physician Gastroenterology 07/28/17 [place] [address] [facility] [address] [place] [address] Consulting Physician Pulmonary Disease 08/03/17 Khris Arthur MD [address] [facility] [address] [place] [address] Medical Oncologist/Marketing Researcher Medical Oncology 10/23/17 [place] [address] [facility] [address] [place] [address] Surgeon Orthopedic Surgery 10/23/17 [place] [address] [facility] [address] [place] [address] Consulting Physician Pain Management 10/23/17 [place] [address] [facility] [address] [place] [address] Referring Physician General Surgery 01/26/18 [place] [address] [facility] [address] [place] [address] Consulting Physician Neurology 01/26/18 documented as of this encounter
--- OUTSIDE RECORDS SUMMARY | 2024-04-26 04:19 | XMS_ITS | Encounter Summary ---
Author Organization [facility] Healthcare Address [address] [place] [address] Care Team Providers Care Strap Maker Name Role Phone Liu Jerez MD Unavailable [phone] Albert Corbin MD Unavailable Justen Gale MD Primary Care Provider Khris Arthur MD Unavailable [phone] Ko Melendez MD Unavailable John Paul Moyer MD Unavailable Annel Rod MD Unavailable Anali MARSHALL MD, Carlos M. Unavailable [phone] Encounter Details Date Type Department Care Team (Latest Contact Info) Description 08/16/2022 2:46 PM CDT - 08/16/2022 11:59 PM CDT Hospital Encounter [facility] [place] [facility] ([facility]) [address] [place] [phone] Malignant neoplasm of upper-inner quadrant of left breast in female, estrogen receptor positive (HCC) Discharge Disposition: Discharge to home or self [...] 02/11/2022 How often do you attend chur ch or sabianist services? Never 02/11/2022 Do you belong to [...] money to buy more. 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 Gender Identity Not on file Sexual Orientation Not on file documented as of this encounter Medications at Time of Discharge albuterol HFA (PROVENTIL HFA,VENTOLIN HFA,PROAIR HFA) 90 mcg/actuation inhaler Inhale 2 puffs every 6 (six) hours as needed for wheezing or shortness of breath 1 BD Ultra-Fine Short Pen Needle 31 gauge x 5/16 needle USE 6 TIMES DAILY DIRECTED 2 blood glucose diagnostic (OneTouch Ultra Test) strip 4 (four) times a day 1 naloxone (NARCAN) 4 mg/actuation spray,non-aerosol 2 oxyBUTYnin XL (DITROPAN XL) 15 mg 24 hr tablet Take 1 tablet (15 mg total) by mouth daily 3 rOPINIRole (REQUIP) 5 mg tablet Take 1 tablet (5 mg total) by mouth nightly Taken at 2100 amitriptyline (ELAVIL) 25 mg tablet Take 25 mg by mouth nightly 9 08/18/19 24 exemestane (AROMASIN) 25 mg tabletIndications: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, unspecified estrogen receptor status (HCC),Malignant neoplasm of overlapping sites of left female breast, unspecified estrogen receptor status (HCC),Malignant neoplasm of female breast, unspecified estrogen receptor status, unspecified laterality, unspecified site of breast (HCC) Take 1 tablet (25 mg total) by mouth nightly 90 tablet 3 12/15/19 23 HumaLOG 100 unit/mL pen for injection 3 08/18/19 24 hydroCHLOROthiazide (MICROZIDE) 12.5 mg capsule Take 1 capsule (12.5 mg total) by mouth daily 3 08/24/19 24 HYDROcodone-acetamin ophen (NORCO) 10-325 mg per tablet Take 1 tablet by mouth every 6 (six) hours 2 10/31/19 24 insulin glargine (LANTUS) 100 unit/mL injection Inject 40 Units under the skin daily. Takes in the morning 8 08/18/19 24 insulin lispro (HumaLOG) 100 unit/mL injection Inject 12 Units under the skin 3 (three) times a day before meals. 8 12/28/19 24 lidocaine viscous (XYLOCAINE) 2 % solution Take 5-10 mL by mouth every 4 (four) hours as needed (sorethroat) 200 mL 2 01/27/20 23 meclizine (ANTIVERT) 25 mg tablet Take 1 tablet (25 mg total) by mouth 3 (three) times a day as needed for dizziness 30 tablet 2 01/27/20 23 methenamine (HIPREX) 1 gram tablet Take 1 tablet (1,000 mg total) by mouth 2 (two) times a day 3 08/18/19 24 mupirocin (BACTROBAN) 2 % ointment mupirocin 2 % topical ointment 01/27/20 23 nystatin powder Apply 1 application topically daily 2 01/27/20 23 ondansetron (ZOFRAN) 4 mg tablet Take 1 tablet (4 mg total) by mouth every 6 (six) hours 12 tablet 2 01/27/20 23 ondansetron ODT (ZOFRAN-ODT) 4 mg disintegrating tablet Take 1 tablet (4 mg total) by mouth every 8 (eight) hours as needed for nausea or vomiting 20 tablet 2 01/27/20 23 oxybutynin (DITROPAN) 5 mg tablet take 1 tablet by oral route every day 0 0 4 01/27/[address] (PROTONIX) 40 mg EC tabletIndications:Tr eatment of Non-Bleeding Gastric Disorder Take 1 tablet (40 mg total) by mouth 2 (two) times a day 60 tablet 2 01/27/20 23 rivaroxaban (Xarelto) 20 mg tabletIndications:Ot her pulmonary embolism without acute cor pulmonale, unspecified chronicity (HCC),Malignant neoplasm of upper-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, unspecified estrogen receptor status (HCC),Malignant neoplasm of overlapping sites of left female breast, unspecified estrogen receptor status (HCC),Malignant neoplasm of female breast, unspecified estrogen receptor status, unspecified laterality, unspecified site of breast (HCC),History of pulmonary embolism,History of DVT (deep vein thrombosis),Chronic anticoagulation Take 1 tablet (20 mg total) by mouth daily 30 tablet 3 3 11/23/19 23 documented as of this encounter Discharge Disposition Disposition Code Departure Means Destination Discharge to home or self care documented in this encounter Plan of Treatment Not on file documented as of this encounter Procedures Procedure Name Priority Date/Time Associated Diagnosis Comments EGFR Routine 08/16/2022 3:10 PM CDT Malignant neoplasm of upper-inner quadrant of left breast in female, estrogen receptor positive (HCC) BASIC METABOLIC PANEL Routine 08/16/2022 3:10 PM CDT Malignant neoplasm of upper-inner quadrant of left breast in female, estrogen receptor positive (HCC) documented in this encounter Results * eGFR (08/16/2022 3:10 PM CDT) eGFR >90 90 - 130 mL/min/1. 73 m2 [facility] Comment: Interpretive Data Reference Interval Normal ?>/= [...] was last reviewed 2021. Testing performed by: [facility], [address] [place] [phone] Blood 08/16/2022 3:10 PM CDT 08/16/2022 3:14 PM CDT Khris Arthur MD LAB BLOOD ORDERABLES Final Result [facility] Department of Laboratories [place], [place] [id number] * (ABNORMAL) Basic metabolic panel (08/16/2022 3:10 PM CDT) Sodium 132(L) 135 - 145 mmol/L [facility] Comment:Testing performed by : [facility], [address] [place] [phone] Potassium, pl 4.1 3.3 - 4.9 mmol/L [facility] Comment:Testing performed by : [facility], [address] [place] [phone] Chloride 97 97 - 110 mmol/L [facility] Comment:Testing performed by : [facility], [address] [place] [phone] CO2 26 22 - 32 mmol/L [facility] Comment:Testing performed by : [facility], [address] [place] [phone] Anion gap 9 2 - 15 mmol/L [facility] Comment:Testing performed by : [facility], [address] [place] [phone] BUN 19 8 - 25 mg/dL [facility] Comment:Testing performed by : [facility], [address] [place] [phone] Creatinine 0.55(L) 0.60 - 1.10 mg/dL [facility] Comment:Testing performed by : [facility], [address] [place] [phone] Glucose 255(H) 70 - 199 mg/dL [facility] Comment: Interpretive Data Fasting glucose >/= 126 [...] was last revised 2022. Testing performed by: [facility], [address] [place] [phone] Calcium 10.3 8.5 - 10.3 mg/dL [facility] Comment:Testing performed by : [facility], [address] [place] [phone] Blood 08/16/2022 3:10 PM CDT 08/16/2022 3:14 PM CDT us Khris Arthur MD LAB BLOOD ORDERABLES Final Result [facility] Department [place] [address] documented in this encounter Visit Diagnoses Diagnosis Malignant neoplasm of upper-inner quadrant of left breast in female, estrogen receptor positive (HCC) documented in this encounter Care Teams Strap Maker Relationship Specialty Start Date End Date Justen Gale MD 2 [facility] [address] [place] [address] PCP - General 10/09/17 Liu Jerez MD Consulting Physician Gastroenterology 07/28/17 [place] [address] [facility] [address] [place] [address] Consulting Physician Pulmonary Disease 08/03/17 Khris Arthur MD 49[address] [facility] [address] [place] [address] Medical Oncologist/Brim Stretcher Medical Oncology 10/23/17 [place] [address] [facility] [address] [place] [address] Surgeon Orthopedic Surgery 10/23/17 [place] [address] [facility] [address] [place] [address] Consulting Physician Pain Management 10/23/17 [place] [address] [facility] [address] [place] [address] Referring Physician General Surgery 01/26/18 [place] [address] [facility] [address] [place] [address] Consulting Physician Neurology 01/26/18 documented as of this encounter
--- OUTSIDE RECORDS SUMMARY | 2024-04-26 04:19 | XMS_ITS | Encounter Summary ---
Author Organization [facility] Address [address] [place] [address] Phone Care Team Providers Care Recycler Name Role Phone Liu Jerez MD Unavailable Albert Corbin MD Unavailable [phone] Justen Gale MD Primary Care Provider Khris Arthur MD Unavailable [phone] Ko Melendez MD Unavailable [phone] John Paul Moyer MD Unavailable Annel Rod MD Unavailable Anali MARSHALL MD, Carlos M. Unavailable Encounter Details Date Type Department Care Team (Late st Contact Info) Description 11/22/2022 Orders Only [facility] Oncology [address] [facility] 7th [place] [address] [place] [address] Jeanine Ba, RMA Chronic anticoagulation; History of pulmonary embolism; History [...] week 02/11/2022 How often do you attend [facility] or amish services? Never 02/11/2022 Do you belong to any clubs o r organizations such as jehovah's witness groups, unions, fraternal or athletic groups, or [...] the money to buy more. Never true 10/21/20 22 Within the past 12 months, t [...] slept in a fdc (including now)? 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 Gender Identity Not on file Sexual Orientation Not on file documented as of this encounter Ordered Prescriptions Prescription Sig Dispense Quantity Refills Last Filled Start Date End Date rivaroxaban (Xarelto) 20 mg tabletIndications: Chronic anticoagulation,Hi [...] total) by mouth daily 30 tablet 3 11/22/2022 05/23/2023 documented in this encounter Plan of Treatment [...] End Da te rivaroxaban (Xarelto) 20 mg tabletIndications:Other pulmonary embolism without acute cor pulmonale, unspecified [...] (20 mg total) by mouth daily Reorder 07/12/2022 11/22/2022 documented as of this encounter Care Teams Recycler Relationship Specialty Start Date End Date Justen Gale MD 2 [facility] [address] [place] [address] PCP - General 10/09/17 Liu Jerez MD Consulting Physician Gastroenterology 07/28/17 [place] [address] [facility] [address] [place] [address] Consulting Physician Pulmonary Disease 08/03/17 Khris Arthur MD 49[address] [facility] [address] [place] [address] Medical Oncologist/Application Technician Medical Oncology 10/23/17 [place] [address] [facility] [address] [place] [address] Surgeon Orthopedic Surgery 10/23/17 [place] [address] [address] [facility] [address] [place] [address] Consulting Physician Pain Management 10/23/17 [place] [address] [facility] [address] [place] [address] Referring Physician General Surgery 01/26/18 [place] [address] [facility] [address] [place] [address] Consulting Physician Neurology 01/26/18 documented as of this encounter
--- OUTSIDE RECORDS SUMMARY | 2024-04-26 04:19 | XMS_ITS | Encounter Summary ---
Author Organization [facility] Healthcare Address [address] [place] [address] Care Team Providers Care Manager Outpatient Name Role Phone Liu Jerez MD Unavailable Albert Corbin MD Unavailable Justen Gale MD Primary Care Provider Khris Arthur MD Unavailable [phone] Ko Melendez MD Unavailable [phone] John Paul Moyer MD Unavailable [phone] Annel Rod MD Unavailable Anali MARSHALL MD, Carlos M. Unavailable Encounter Details Date Type Department Care Team (Latest Contact Info) Description 08/12/2022 4:43 PM CDT - 08/12/2022 11:59 PM CDT Hospital Encounter [facility] [place] [facility] ([facility]) [address] [place] [phone] Discharge Disposition: Discharge to home or self [...] often do you attend chur ch or hinduism services? Never 02/11/2022 Do you belong to any clubs o r organizations such as synagogue groups, unions, fraternal or athletic groups, or [...] in a senior care (including now)? 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 Gender Identity Not on file Sexual Orientation [...] filedocumented in this encounter Care Teams Manager Outpatient Relationship Specialty Start Date End Date Justen Gale MD 2 [facility] [address] [place] [address] PCP - General 10/09/17 Liu Jerez MD Consulting Physician Gastroenterology 07/28/17 [place] [address] [address] [facility] [address] [place] [address] Consulting Physician Pulmonary Disease 08/03/17 Khris Arthur MD 4921 [facility] [address] [place] [address] Medical Oncologist/Transplant Coordinator Medical Oncology 10/23/17 [place] [address] [address] Surgeon Orthopedic Surgery 10/23/17 [place] [address] [address] Consulting Physician Pain Management 10/23/17 [place] [address] [address] Referring Physician General Surgery 01/26/18 [place] [address] [facility] [address] [place] [address] Consulting Physician Neurology 01/26/18 documented as of this encounter
--- OUTSIDE RECORDS SUMMARY | 2024-04-26 04:19 | XMS_ITS | Encounter Summary ---
Author Organization [facility] Address [address] [place] [address] Phone Care Team Providers Care Medication Administration Professional Name Role Phone Liu Jerez MD Unavailable Albert Corbin MD Unavailable [phone] Justen Gale MD Primary Care Provider Khris Arthur MD Unavailable [phone] Ko Melendez MD Unavailable [phone] John Paul Moyer MD Unavailable Annel Rod MD Unavailable Anali MARSHALL MD, Carlos M. Unavailable [phone] Encounter Details Date Type Department Care Team (Late st Contact Info) Description 07/12/2022 Orders Only [facility] Oncology [address] [facility] 7th [place] [address] [place] [address] Khris Arthur MD 49[address] [facility] [address] [place] [address] Other pulmonary embolism without acute cor pulmonale, unspecified chronicity (HCC); Malignant neoplasm of upper-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, unspecified estrogen receptor status (HCC); Malignant neoplasm of overlapping sites of left female breast, unspecified estrogen receptor status (HCC); Malignant neoplasm of female breast, unspecified estrogen receptor status, unspecified laterality, unspecified site of breast (HCC); History of pulmonary embolism; History of DVT (deep vein thrombosis); Chronic anticoagulation Social History Tobacco Use Types Packs/Day Years [...] often do you attend chur ch or amish services? Never 02/11/2022 Do you belong to any clubs o r organizations such as hoahaoism groups, unions, fraternal or athletic groups, or [...] slept in a intermediate (including now)? 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 Gender Identity Not on file Sexual Orientation Not on file documented as of this encounter Ordered Prescriptions Prescription Sig Dispense Quantity Refills Last Filled Start Date End Date rivaroxaban (Xarelto) 20 mg tabletIndications:Oth er pulmonary embolism without acute cor pulmonale, unspecified [...] total) by mouth daily 30 tablet 3 07/12/2022 3 documented in this encounter Plan of Treatment Not on file documented as of this encounter Visit Diagnoses Diagnosis Other pulmonary embolism without acute cor pulmonale, unspecified chronicity (HCC) Malignant neoplasm of upper-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, unspecified estrogen receptor status (HCC) Malignant neoplasm of overlapping sites of left female breast, unspecified estrogen receptor status (HCC) Malignant neoplasm of female breast, unspecified estrogen receptor status, unspecified laterality, unspecified site of breast (HCC) History of pulmonary embolism Personal history of venous thrombosis and embolism History of DVT (deep vein thrombosis) Chronic anticoagulation Encounter for long-term (current) use of anticoagulants documented in this encounter Discontinued Medications Medication [...] (20 mg total) by mouth daily Reorder 03/01/2022 07/12/2022 documented as of this encounter Care Teams Medication Administration Professional Relationship Specialty Start Date End Date Justen Gale MD [address] [address] PCP - General 10/09/17 Liu Jerez MD Consulting Physician Gastroenterology 07/28/17 [place] [address] [facility] [address] [place] [address] Consulting Physician Pulmonary Disease 08/03/17 Khris Arthur MD 4921 [facility] [address] [place] [address] Medical Oncologist/Director Of Front Office Medical Oncology 10/23/17 [place] [address] [facility] [address] [place] [address] Surgeon Orthopedic Surgery 10/23/17 [place] [address] [address] Consulting Physician Pain Management 10/23/17 [place] [address] [address] Referring Physician General Surgery 01/26/18 [place] [address] [facility] [address] [place] [address] Consulting Physician Neurology 01/26/18 documented as of this encounter
--- OUTSIDE RECORDS SUMMARY | 2024-04-26 04:19 | XMS_ITS | Encounter Summary ---
Author Organization [facility] Address [address] [place] [address] Phone Care Team Providers Care Coffee Shop Aide Name Role Phone Liu Jerez MD Unavailable Albert Corbin MD Unavailable Justen Gale MD Primary Care Provider Khris Arthur MD Unavailable [phone] Ko Melendez MD Unavailable John Paul Moyer MD Unavailable Annel Rod MD Unavailable Anali MARSHALL MD, Carlos M. Unavailable Reason for Visit * Reason Comments Osteoporosis * Diagnostic Imaging (Routine) - Closed Specialty Diagnoses / Procedures Referred By Contac t Referred To Contact Diagnoses Malignant neoplasm of upper-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, unspecified estrogen receptor status (HCC) Procedures Dexa Axial Skeleton Bone Density 1 or 2 Site Khris Arthur MD [address] [facility] [address] [place] [address] Phone: tel: fax: [facility] (All Locations) Referral ID Status Reason Start Date Expiration Date Visits Re quested Visits Authorized [id number] Closed 09/07/2021 10/07/2022 1 1 Encounter Details Date Type Department Care Team (Latest Contact Info) Description 08/02/2022 10:30 AM CDT Clinical Support [facility] [address] [facility] 5th [place] [address] [place] [address] Malignant neoplasm of upper-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, unspecified estrogen receptor status (HCC); Postmenopausal; Osteoporosis, unspecified osteoporosis type, unspecified pathological fracture presence; USP (current) use 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 inhibitors; 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 Gender Identity Not on file Sexual Orientation Not on file documented as of this encounter Plan of Treatment Not on file documented as of this encounter Procedures Procedure Name Priority Date/Time Associated Diagnosis Comments DEXA AXIAL SKELETON BONE DENSITY 1 OR MORE SITES Schedule Routine, Read Routine (OP Routine) 08/02/2022 10:53 AM CDT Malignant neoplasm of upper-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, unspecified estrogen receptor status (HCC) documented in this encounter Results * Dexa Axial Skeleton Bone Density 1 or 2 Site (08/02/2022 10:53 AM CDT) Anatomical Region Laterality Modality Body N/A Radiographic Lizeth ging Narrative 08/02/2022 3:34 PM CDT Patient Name: Karly Marques Date of : 1955 Date of scan: 08/02/2022 Bone mineral density was performed on a HoloAudioscribe Discovery Densitometer. ?? Based on machine cross-calibration [...] density scan were prepared by Yesenia Hernandez) CBDT ??who is accredited by the International Society of Clinical Densitometry. The overall patient assessment and scan interpretation were performed by Kaylie Castro MD ??who is certified by the International Society of Clinical Densitometry. 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) use of anticoagulants Long-term (current) use of anticoagulants documented in this encounter Care Teams Coffee Shop Aide Relationship Specialty Start Date End Date Justen Gale MD [address] [address] PCP - General 10/09/17 Liu Jerez MD Consulting Physician Gastroenterology 07/28/17 [place] [address] [address] [facility] [address] [place] [address] Consulting Physician Pulmonary Disease 08/03/17 Khris Arthur MD 49[address] [facility] [address] [place] [address] Medical Oncologist/Professor Of Counseling Medical Oncology 10/23/17 [place] [address] [facility] [address] [place] [address] Surgeon Orthopedic Surgery 10/23/17 [place] [address] [address] Consulting Physician Pain Management 10/23/17 [place] [address] [address] Referring Physician General Surgery 01/26/18 [place] [address] [facility] [address] [place] [address] Consulting Physician Neurology 01/26/18 documented as of this encounter
--- OUTSIDE RECORDS SUMMARY | 2024-04-26 04:19 | XMS_ITS | Encounter Summary ---
Author Organization [facility] Address [address] [place] [address] Phone Care Team Providers Care Frontend Engineer Name Role Phone Liu Jerez MD Unavailable [phone] Albert Corbin MD Unavailable Justen Gale MD Primary Care Provider Khris Arthur MD Unavailable [phone] Ko Melendez MD Unavailable John Paul Moyer MD Unavailable [phone] Annel Rod MD Unavailable Anali MARSHALL MD, Carlos M. Unavailable [phone] Encounter Details Date Type Department Care Team (Late st Contact Info) Description 03/21/[address] [facility] Oncology [address] [facility] 7th [place] [address] [place] [address] Radha Mcgrath RN Malignant neoplasm of upper-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, unspecified estrogen receptor status (HCC); Malignant neoplasm of overlapping sites of left female breast, unspecified estrogen receptor status (HCC); Malignant neoplasm of female breast, unspecified estrogen receptor status, unspecified laterality, unspecified site of breast (HCC) Social History Tobacco Use Types Packs/Day [...] often do you attend chur ch or yazdanism services? Never 02/11/2022 Do you belong to any clubs o r organizations such as roman catholic groups, unions, fraternal or athletic groups, or [...] you are drinking? 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 Gender Identity Not on file Sexual Orientation Not on file documented as of this encounter Ordered Prescriptions Prescription Sig Dispense Quantity Refills Last Filled Start Date End Date exemestane (AROMASIN) 25 mg tabletIndications: Malignant neoplasm of upper-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, unspecified estrogen receptor status (HCC),Malignant neoplasm of overlapping sites of left female breast, unspecified estrogen receptor status (HCC),Malignant neoplasm of female breast, unspecified estrogen receptor status, unspecified laterality, unspecified site of breast (HCC) Take 1 tablet (25 mg total) by mouth nightly 90 tablet 3 03/21/2023 documented in this encounter Plan of Treatment Not on file documented as of this encounter Visit Diagnoses Diagnosis Malignant neoplasm of upper-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, unspecified estrogen receptor status (HCC) Malignant neoplasm of overlapping sites of left female breast, unspecified estrogen receptor status (HCC) Malignant neoplasm of female breast, unspecified estrogen receptor status, unspecified laterality, unspecified site of breast (HCC) documented in this encounter Discontinued Medications Medication Sig Discontinue Reason Start Date End Da te exemestane (AROMASIN) 25 mg tabletIndications:Malign ant neoplasm of upper-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, unspecified estrogen receptor status (HCC),Malignant neoplasm of overlapping sites of left female breast, unspecified estrogen receptor status (HCC),Malignant neoplasm of female breast, unspecified estrogen receptor status, unspecified laterality, unspecified site of breast (HCC) Take 1 tablet (25 mg total) by mouth nightly Reorder 12/14/2022 03/21/2023 documented as of this encounter Care Teams Frontend Engineer Relationship Specialty Start Date End Date Justen Gale MD 2 [facility] [address] [place] [address] PCP - General 10/09/17 Liu Jerez MD Consulting Physician Gastroenterology 07/28/17 [place] [address] [facility] [address] [place] [address] Consulting Physician Pulmonary Disease 08/03/17 Khris Arthur MD 4921 [facility] [address] [place] [address] Medical Oncologist/Band Booker Medical Oncology 10/23/17 [place] [address] [facility] [address] [place] [address] Surgeon Orthopedic Surgery 10/23/17 [place] [address] [facility] [address] [place] [address] Consulting Physician Pain Management 10/23/17 [place] [address] [facility] [address] [place] [address] Referring Physician General Surgery 01/26/18 [place] [address] [facility] [address] [place] [address] Consulting Physician Neurology 01/26/18 documented as of this encounter
--- OUTSIDE RECORDS SUMMARY | 2024-04-26 04:19 | XMS_ITS | Encounter Summary ---
Author Organization [facility] Address [address] [place] [address] Phone Care Team Providers Care Wire Winding Machine Operator Name Role Phone Lui Jerez MD Unavailable Albert Corbin MD Unavailable Justen Gale MD Primary Care Provider [phone] Khris Arthur MD Unavailable [phone] Ko Melendez MD Unavailable John Paul Moyer MD Unavailable Annel Rod MD Unavailable Anali MARSHALL MD, Carlos M. Unavailable [phone] Encounter Details Date Type Department Care Team (Late st Contact Info) Description 12/16/2022 Orders Only [facility] Oncology [address] [place] [address] Khris Arthur MD 9[address] [facility] [address] [place] [address] Social History Tobacco Use Types Packs/Day Years [...] often do you attend chur ch or yazidi services? Never 02/11/2022 Do you belong to [...] slept in a retirement (including now)? 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 Gender Identity Not on file Sexual Orientation Not on file documented as of this encounter Plan of Treatment Not on file documented as of this encounter Visit Diagnoses Not on filedocumented in this encounter Care Teams Wire Winding Machine Operator Relationship Specialty Start Date End Date Justen Gale MD 2 [facility] [address] [place] [address] PCP - General 10/09/17 Liu Jerez MD Consulting Physician Gastroenterology 07/28/17 [place] [address] [address] [facility] [address] [place] [address] Consulting Physician Pulmonary Disease 08/03/17 Khris Arthur MD 4921 [facility] [address] [place], [place] [address] Medical Oncologist/Toolroom Keeper Medical Oncology 10/23/17 [place] [address] [address] [facility] [address] [place] [address] Surgeon Orthopedic Surgery 10/23/17 [place] [address] [address] [facility] [address] [place] [address] Consulting Physician Pain Management 10/23/17 [place] [address] [address] Referring Physician General Surgery 01/26/18 [place] [address] [address] [facility] [address] [place] [address] Consulting Physician Neurology 01/26/18 documented as of this encounter
--- OUTSIDE RECORDS SUMMARY | 2024-04-26 04:19 | XMS_ITS | Encounter Summary ---
Author Organization [facility] Address [address] [place] [address] Phone Care Team Providers Care Hide House Supervisor Name Role Phone Liu Jerez MD Unavailable Albert Corbin MD Unavailable Justen Gale MD Primary Care Provider [phone] Khris Arthur MD Unavailable [phone] Ko Melendez MD Unavailable John Paul Moyer MD Unavailable Annel Rod MD Unavailable Anali MARSHALL MD, Carlos M. Unavailable [phone] Reason for Visit * Oncology (Routine) - Closed Specialty Diagnoses / Procedures Referred By Contac t Referred To Contact Oncology Diagnoses Malignant neoplasm of overlapping sites of left female breast, unspecified estrogen receptor status (HCC) Justen Gale MD [address] [place] [address] Phone: tel: fax: Khris Arthur MD Phone: tel: fax: Referral ID Status Reason Start Date Expiration Date V isits Requested Visits Authorized [id number] Closed Specialty Services Required 10/18/2019 04/23/2024 99 [phone] Encounter Details Date Type Department Care Team (Late st Contact Info) Description 08/02/2022 11:30 AM CDT Office Visit [facility] Oncology [address] [facility] 7th [place] [address] [place] [address] Khris Arthur MD [address] [facility] [address] [place] [address] Malignant neoplasm of upper-inner quadrant of left [...] week 02/11/2022 How often do you attend [facility] or [facility] services? Never 02/11/2022 Do you belong to [...] slept in a jail (including now)? 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 Gender Identity Not on file Sexual Orientation Not on file documented as of this encounter Last Filed Vital Signs Vital Sign Reading Time Taken Comments Blood Pressure 143/89 08/02/2022 11:17 AM CDT Pulse 73 08/02/2022 11:17 AM CDT Temperature 36.3 ??C (97.4 ??F) 08/02/2022 1 1:17 AM CDT Respiratory Rate 18 08/02/2022 11:1 7 AM CDT Oxygen Saturation 100% 08/02/2022 11: 17 AM CDT Inhaled Oxygen Concentration - - Weight 130.3 kg (287 lb 3.2 oz) 023 11:17 AM CDT Height - - Body Mass Index 54.29 07/05/2022 8:15 PM CDT documented in this encounter Progress Notes * Khris Arthur MD - 08/02/2022 11:30 AM CDT Oncology Medicine Follow Up Visit Reason [...] in the left carcinoma were ER 8, VT 8, HER-2 negative. 3. Cytology on 07/21/2014 [...] of left female breast (CMS/HCC) Interval History: c/o recurrent UTIs. Admitted for few days recently. Taking exemestane as recommended. Scared to D/Adria sister has metastatic disease. She prefer to continue this medication. C/o LUE swelling and tightness. Review of Systems: A 12 point review [...] Replacement OTHER SURGICAL HISTORY R ovary removed US SOFT TISSUE ABSCESS DRAIN N/A 12/11/2014 US SOFT TISSUE ABSCESS DRAIN N/A 10/24/2014 (Not in a hospital admission) Current Outpatient Medications Medication Sig Dispense Refill BD Ultra-Fine Short Pen Needle 31 gauge x 5/16 needle USE 6 TIMES DAILY DIRECTED blood glucose diagnostic (zPerfectGiftuch Ultra Test) strip 4 (four) times a day exemestane (AROMASIN) 25 mg tablet Take 1 tablet (25 mg total) by mouth nightly 90 tablet 0 HumaLOG 100 unit/mL pen for injection hydroCHLOROthiazide (MICROZIDE) 12.5 mg capsule Take 1 capsule (12.5 mg total) by mouth daily insulin glargine (LANTUS) 100 unit/mL injection Inject 40 Units under the skin daily. Takes in the morning (Patient taking differently: Inject 50 Units under the skin daily Takes in the morning) insulin lispro (HumaLOG) 100 unit/mL injection Inject 12 Units under the skin 3 (three) times a daybefore meals. (Patient taking differently: Inject 22 Units under the skin 3 (three) times a day before meals) methenamine (HIPREX) 1 gram tablet Take 1 tablet (1,000 mg total) by mouth 2 (two) times a day oxybutynin XL (DITROPAN-XL) 10 mg 24 hr tablet TAKE 1 TABLET BY MOUTH EVERY DAY FOR OVERACTIVE BLADDER rivaroxaban (Xarelto) 20 mg tablet Take 1 tablet (20 mg total) by mouth daily 30 tablet 3 rOPINIRole (REQUIP) 5 mg tablet Take 1 tablet (5 mg total) by mouth nightly albuterol HFA (PROVENTIL HFA,VENTOLIN HFA,PROAIR HFA) 90 mcg/actuation inhaler INHALE 2 PUFFS INTO LUNGS BY MOUTH EVERY 4 HOURS NEEDED FOR WHEEZING OR SHORTNESS OF BREATH (Patient not taking: Reported on 08/02/2022) amitriptyline (ELAVIL) 25 mg tablet Take 25 mg by mouth nightly (Patient not taking: Reported on 08/02/2022) HYDROcodone-acetaminophen (NORCO) 7.5-325 mg per tablet Take 1 tablet by mouth every 6 (six) hours (Patient not taking: Reported on 08/02/2022) lidocaine viscous (XYLOCAINE) 2 % solution Take 5-10 mL by mouth every 4 (four) hours as needed (sorethroat) (Patient not taking: Reported on 08/02/2022) 200 mL 0 meclizine (ANTIVERT) 25 mg tablet Take 1 tablet (25 mg total) by mouth 3 (three) times a day as needed for dizziness (Patient not taking: Reported on 08/02/2022) 30 tablet 0 mupirocin (BACTROBAN) 2 % ointment mupirocin 2 % topical ointment (Patient not taking: Reported on 08/02/2022) naloxone (NARCAN) 4 mg/actuation spray,non-aerosol CALL 911. SPR CONTENTS OF ONE SPRAYER (0.1ML) INTO ONE NOSTRIL. REPEAT IN 2-3 MIN IF SYMPTOMS OF OPIOID EMERGENCY PERSIST, ALTERNATE NOSTRILS (Patient not taking: Reported on 08/02/2022) nystatin powder Apply 1 application topically daily (Patient not taking: Reported on 08/02/2022) ondansetron (ZOFRAN) 4 mg tablet Take 1 tablet (4 mg total) by mouth every 6 (six) hours (Patient not taking: Reported on 08/02/2022) 12 tablet 0 ondansetron ODT (ZOFRAN-ODT) 4 mg disintegrating tablet Take 1 tablet (4 mg total) by mouth every 8(eight) hours as needed for nausea or vomiting (Patient not taking: Reported on 08/02/2022) 20 tablet 0 oxybutynin (DITROPAN) 5 mg tablet take 1 tablet by oral route every day (Patient not taking: Reported on 08/02/2022) [address] (PROTONIX) 40 mg EC tablet Take 1 tablet (40 mg total) by mouth 2 (two) times a day60 tablet 0 No current facility-administered medications for this visit. [...] use Substance and Sexual Activity Drug use: None Sexual activity: Defer Alcohol Use: Not At Risk Frequency of Alcohol Consumption: Never Average Number [...] of restless leg syndrome; Physical Exam: Vitals: 08/02/22 1117 BP: 143/89 BP Location: Right arm Pulse: 73 Resp: 18 Temp: 36.3 ??C (97.4 ??F) TempSrc: Transdermal SpO2: 100% Weight: 130.3 kg (287 lb 3.2 oz) ECO General: No acute distress, appears well, not distressed. HEENT: Moist mucous membranes. Not pale. Anicteric. Neck: Supple. No lymphadenopathy. Lymph node survey: Negative. Chest: Clear to auscultation and percussion bilaterally. Cardiovascular: Regular rate and rhythm. No murmurs, rubs, or gallops. Abdomen: Positive bowel sounds. Soft, nondistended, nontender to palpation. Extremities: Warm and well perfused, no clubbing, cyanosis or edema. Neurologic: A&O x3, moving all extremities spontaneously. Grossly non-focal. Psychiatric: Pleasant mood, congruent affect. Breast: absent. No local recurrence. Lab/Radiology/Diagnostic Review: No results found for this or any previous visit (from the past 24 hour(s)). Radiology: DEXA with normal bone density in spine but 11% bone loss since baseline, osteoporosis in hip with 21% loss since baseline. ASSESSMENT AND PLAN: Karly Marques is a 66 y.o. female with stage II, ER positive, HER2 negative breast cancer on adjuvant exemestane. She will continue on exemestane, with plans to complete 10 years of therapy till 12/2024. She wants to stay on indefinitely. She was intolerant of Zometa given in 12/2020, but willing to take it again due to ongoing bone loss, so will plan yearly reclast X 3 years then following that will recheck DEXA. She will continue on calcium and vitamin D for now as well. Recommend cranberry tabs for recurrent UTIs. Recommended to increase physical activity/water aerobics. PT referral for lymphedema assessment and management. ROV in 1 year with reclast chair. Khris Arthur MD documented in this encounter Miscellaneous Notes * Addendum Note - Melita Keys RN - 08/02/2022 11:30 AM CDTAddended by: MELITA KEYS on: 08/02/2022 04:10 PM Modules accepted: Orders documented in this encounter Plan of Treatment Not on file documented as of this encounter Results * (ABNORMAL) Basic metabolic panel (11/21/2023 2:34 PM CDT) Sodium 138 135 - 145 mmol/L Comment:Testing performed by : [facility], [address] [place] [phone] Potassium, pl 4.1 3.3 - 4.9 mmol/L [facility] Comment:Testing performed by : [facility], [address] [place] [phone] Chloride 103 97 - 110 mmol/L [facility] Comment:Testing performed by : [facility], [address] [place] [phone] CO2 29 22 - 32 mmol/L [facility] Comment:Testing performed by : [facility], [address] [place] [phone] Anion gap 6 2 - 15 mmol/L [facility] Comment:Testing performed by : [facility], [address] [place] [phone] BUN 15 6 - 25 mg/dL [facility] Comment:Testing performed by : [facility], [address] [place] [phone] Creatinine 0.63 0.60 - 1.10 mg/dL [facility] Comment:Testing performed by : [facility], [address] [place] [phone] Glucose 202(H) 70 - 199 mg/dL MARY JANE ANGELES [...] was last revised 2022. Testing performed by: [facility], [address] [place] [phone] Calcium 9.6 8.5 - 10.3 mg/dL MARY JANE ANGELES Comment:Testing performed by : [facility], [address] [place] [phone] Blood 11/21/2023 2:34 PM CDT 11/21/2023 2:39 PM CDT us Khris Arthur MD LAB BLOOD ORDERABLES Final Result MARY JANE ANGELES [facility] [place] [address] * (ABNORMAL) Basic metabolic panel (08/16/2022 3:10 PM CDT) Sodium 132(L) 135 - 145 mmol/L MARY JANE ANGELES Comment:Testing performed by : [facility], [address] [place] [phone] Potassium, pl 4.1 3.3 - 4.9 mmol/L [facility] JANE ANGELES Comment:Testing performed by : [facility], [address] [place] [phone] Chloride 97 97 - 110 mmol/L MARY JANE ANGELES Comment:Testing performed by : [facility], [address] [place] [phone] CO2 26 22 - 32 mmol/L MARY JANE ANGELESH Comment:Testing performed by : [facility], [address] [place] [phone] Anion gap 9 2 - 15 mmol/L [facility] Comment:Testing performed by : [facility], [address] [place] [phone] BUN 19 8 - 25 mg/dL [facility] Comment:Testing performed by : [facility], [address] [place] [phone] Creatinine 0.55(L) 0.60 - 1.10 mg/dL [facility] Comment:Testing performed by : [facility], [address] [place] [phone] Glucose 255(H) 70 - 199 mg/dL [facility] Comment: Interpretive Data Fasting glucose >/= 126 [...] was last revised 2022. Testing performed by: [facility], [address] [place] [phone] Calcium 10.3 8.5 - 10.3 mg/dL [facility] Comment:Testing performed by : [facility], [address] [place] [phone] Blood 08/16/2022 3:10 PM CDT 08/16/2022 3:14 PM CDT us Khris Arthur MD LAB BLOOD ORDERABLES Final Result [facility] Department [place] [address] documented in this encounter Visit Diagnoses Diagnosis Malignant neoplasm of upper-inner quadrant of left breast in female, estrogen receptor positive (HCC)- Primary documented in this encounter Historical Medications * This list may reflect changes made after this encounter. oxyBUTYnin XL (DITROPAN XL) 15 mg 24 hr tablet Take 1 tablet (15 mg total) by mouth daily 06/28/2022 methenamine (HIPREX) 1 gram tablet Take 1 tablet (1,000 mg total) by mouth 2 (two) times a day 04/27/2022 08/18/2023 hydroCHLOROthiazi de (MICROZIDE) 12.5 mg capsule Take 1 capsule (12.5 mg total) by mouth daily 07/16/2022 08/24/2023 HumaLOG 100 unit/mL pen for injection 07/14/2022 08/18/2023 added in this encounter Orders Appointment Requests Count Last Ordered Date Fi rst Ordered Date ONCBCN CLINIC APPOINTMENT REQUEST 1 024 INFUSION APPT REQUEST 60 MIN 2 08/16/2022 08/02/2022 ONCBCN LAB APPOINTMENT 2 08/16/202208/02 documented in this encounter Care Teams Hide House Supervisor Relationship Specialty Start Date End Date Justen Gale MD 2 [facility] [address] [place] [address] PCP - General 10/09/17 Liu Jerez MD Consulting Physician Gastroenterology 07/28/17 [place] [address] [facility] [address] [place] [address] Consulting Physician Pulmonary Disease 08/03/17 Khris Arthur MD 49[address] [facility] [address] [place] [address] Medical Oncologist/Alteration Hand Medical Oncology 10/23/17 [place] [address] [facility] [address] [place] [address] Surgeon Orthopedic Surgery 10/23/17 [place] [address] [address] Consulting Physician Pain Management 10/23/17 [place] [address] [address] Referring Physician General Surgery 01/26/18 [place] [address] [facility] [address] [place] [address] Consulting Physician Neurology 01/26/18 documented as of this encounter
--- OUTSIDE RECORDS SUMMARY | 2024-04-26 04:19 | XMS_ITS | Encounter Summary ---
Author Organization [facility] Address [address] [place] [address] Phone Care Team Providers Care Professor Of Forest Planning Name Role Phone Liu Jerez MD Unavailable [phone] Albert Corbin MD Unavailable Justen Gale MD Primary Care Provider Khris Arthur MD Unavailable [phone] Ko Melendez MD Unavailable John Paul Moyer MD Unavailable [phone] Annel Rod MD Unavailable Anali MARSHALL MD, Carlos M. Unavailable Reason for Visit * Oncology (Routine) - Closed Specialty Diagnoses / Procedures Referred By Contac t Referred To Contact Oncology Diagnoses Malignant neoplasm of overlapping sites of left female breast, unspecified estrogen receptor status (HCC) Procedures ONCBCN ARM DRAW APPT ONC LAB ONLY Khris Arthur MD [address] [facility] [address] [place] [address] Phone: tel: fax: Khris Arthur MD 49[address] [facility] [address] [place] [address] Phone: tel: fax: Referral ID Status Reason Start Date Expiration Date V isits Requested Visits Authorized [id number] Closed Specialty Services Required 07/23/2020 04/23/2024 99 99 Encounter Details Date Type Department Care Team (Late st Contact Info) Description 08/16/2022 3:00 PM CDT Lab [facility] Oncology [address] [facility] 7th [place] [address] [place] [address] Malignant neoplasm of upper-inner quadrant of left [...] How often do you attend chur or mosque services? Never 02/11/2022 Do you belong to [...] slept in a prison (including now)? 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 Female 12:24 AM RN LIAISON Gender Identity Not on file Sexual Orientation Not on file documented as of this encounter Plan of Treatment Not on file documented as of this encounter Visit Diagnoses Diagnosis Malignant neoplasm of upper-inner quadrant of left breast in female, estrogen receptor positive (HCC) documented in this encounter Orders Appointment Requests Count Last Ordered Date Fi rst Ordered Date ONCBCN LAB APPOINTMENT 1 08/16/2022 documented in this encounter Care Teams Professor Of Forest Planning Relationship Specialty Start Date End Date Justen Gale MD 2 [place] [address] PCP - General 10/09/17 Liu Jerez MD Consulting Physician Gastroenterology 07/28/17 [place] [address] [facility] [address] [place] [address] Consulting Physician Pulmonary Disease 08/03/17 Khris Arthur MD [address] [facility] [address] [place] [address] Medical Oncologist/Gauge Inspector Medical Oncology 10/23/17 [place] [address] [facility] [address] [place] [address] Surgeon Orthopedic Surgery 10/23/17 [place] [address] [facility] [address] [place] [address] Consulting Physician Pain Management 10/23/17 [place] [address] [facility] [address] [place] [address] Referring Physician General Surgery 01/26/18 [place] [address] [place] [address] Consulting Physician Neurology 01/26/18 documented as of this encounter
--- OUTSIDE RECORDS SUMMARY | 2024-04-26 04:19 | XMS_ITS | Encounter Summary ---
Author Organization [facility] Healthcare Address [address] [place] [address] Care Team Providers Care Office Support Specialist Name Role Phone Liu Jerez MD Unavailable Albert Corbin MD Unavailable Justen Gale MD Primary Care Provider Khris [place] MD Unavailable [phone] Ko Melendez MD Unavailable [phone] John Paul Moyer MD Unavailable Annel Rod MD Unavailable Anali MARSHALL MD, Carlos M. Unavailable [phone] Reason for Visit * Reason Comments Weakness - Generalized Encounter Details Date Type Department Care Team (Late st Contact Info) Description 01/26/2023 3:37 PM CDT - 01/26/2023 9:[address] [facility] ([place], [place]) Emergency Department [address] [place] [id number] Abnormal involuntary movement (Primary Dx) Discharge Disposition: Discharge to home [...] often do you attend chur ch or buddhist services? Never 02/11/2022 Do you belong to any clubs o r organizations such as presybeterian groups, unions, fraternal or athletic groups, or [...] slept in a detention (including now)? 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 Female 12:24 AM [employer] Gender Identity Not on file Sexual Orientation Not on file documented as of this encounter Last Filed Vital Signs Vital Sign Reading Time Taken Comments Blood Pressure 96/59 01/26/2023 9:00 PM CDT Pulse 93 01/26/2023 9:00 PM CDT Temperature 36.5 ??C (97.7 ??F) 01/26/2023 3:08 PM CD T Respiratory Rate 23 01/26/2023 9:00 PM CDT Oxygen Saturation 96% 01/26/2023 9:00 PM CDT Inhaled Oxygen Concentration - - Weight 124.2 kg (273 lb 13 oz) 01/26/2023 3:08 P M CDT Height 154.9 cm (5' 1 ) 01/26/2023 3:08 PM CDT Body Mass Index 51.74 01/26/2023 3:08 PM CDT documented in this encounter Discharge Instructions * Discharge Instructions* Blaze Armenta NP - 01/26/2023 9:25 PM CDT Continue to take all home medicine prescribed, drink plenty of water and stay well hydrated, follow-up with neurologist, Dr. Trammell for further evaluation, return to ED immediately for any worsening [...] strip 4 (four) times a day 02/01/2021 naloxone (NARCAN) 4 mg/actuation spray,non-aerosol 05/13/2021 oxyBUTYnin XL (DITROPAN XL) 15 mg 24 hr tablet Take 1 tablet (15 mg total) by mouth daily 06/28/2022 rOPINIRole (REQUIP) 5 mg tablet Take 1 tablet (5 mg total) by mouth nightly Taken at 2100 amitriptyline (ELAVIL) 25 mg tablet Take 25 mg by mouth nightly 05/21/2018 4 exemestane (AROMASIN) 25 mg tabletIndications :Malignant neoplasm of upper-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, unspecified estrogen receptor status (HCC),Malignant neoplasm of overlapping sites of left female breast, unspecified estrogen receptor status (HCC),Malignant neoplasm of female breast, unspecified estrogen receptor status, unspecified laterality, unspecified site of breast (HCC) Take 1 tablet (25 mg total) by mouth nightly 90 tablet 12/14/2022 3 HumaLOG 100 unit/mL pen for injection 07/14/2022 4 hydroCHLOROthiazi de (MICROZIDE) 12.5 mg capsule Take 1 capsule (12.5 mg total) by mouth daily 07/16/2022 4 HYDROcodone-aceta minophen (NORCO) 10-325 mg per tablet Take 1 tablet by mouth every 6 (six) hours 08/20/2021 4 hydrOXYzine (ATARAX) 10 mg tabletIndications :Pruritus of Skin Take 1 tablet (10 mg total) by mouth 2 (two) times a day as needed for itching for up to 7 days 14 tablet 09/14/2022 4 insulin glargine (LANTUS) 100 unit/mL injection Inject 40 Units under the skin daily. Takes in the morning 01/26/2018 4 insulin lispro (HumaLOG) 100 unit/mL injection Inject 12 Units under the skin 3 (three) times a day before meals. 01/26/2018 4 methenamine (HIPREX) 1 gram tablet Take 1 tablet (1,000 mg total) by mouth 2 (two) times a day 04/27/2022 4 rivaroxaban (Xarelto) 20 mg tabletIndications :Chronic anticoagulation,H istory of pulmonary embolism,History of DVT (deep vein [...] by mouth daily 30 tablet 3 11/22/2022 4 documented as of this encounter Discharge Disposition Disposition Code Departure Means Destination Comment s Discharge to home or self care documented in this encounter ED Notes * Blaze Armenta NP - 01/26/2023 4:25 PM CDT CHIEF COMPLAINT: Chief Complaint Patient presents with Weakness - Generalized HPI 9:26 PM Karly Marques is a 67 y.o. female presenting to the ED c/o seizure- like activities. Shestates that approximately 4 weeks ago she was pulling a weed, lost balance and fell onto ground andhit head to a brick. She did not have any LOC at that time. She was evaluated in the ED after the fall, she was sent home, however she states that since then on and off she is having jerking like movements to her right side of her body including right arm and right that usually last 10-15 minutes and it has progressively gotten worse. She did not any LOC during that jerking like movement, denies any loss of bowel or bladder, denies any unilateral weakness, slurred speech unsteady gait, she doesstate that she feels weak, fatigued at have a headache. She denies any chest pain or shortness of breath. Denies any abdominal discomfort or any urinary discomfort. Denies any other complaint. History provided by patient. [...] PE (pulmonary thromboembolism) (CMS/HCC) (HCC) Sleep apnea PAST SURGICAL HISTORY Past Surgical [...] syndrome; MEDICATIONS GIVEN IN THE ED Medications sodium chloride 0.9% bolus 1,000 mL (0 mL intravenous Stopped 01/26/23 1920) ondansetron (ZOFRAN) injection 4 mg (4 mg intravenous Given 01/26/23 1620) ondansetron (ZOFRAN) injection 4 mg (4 mg intravenous Given 01/26/23 1722) acetaminophen (TYLENOL) tablet 650 mg (650 mg oral Given 01/26/23 1837) ioversoL (OPTIRAY 350) injection 100 mL (100 mL intravenous Contrast Given 10/51833) CURRENT HOME MEDICATIONS No current facility-administered medications for this encounter. Current Outpatient Medications: albuterol HFA (PROVENTIL HFA,VENTOLIN HFA,PROAIR HFA) 90 mcg/actuation inhaler, INHALE 2 PUFFS INTOLUNGS BY MOUTH EVERY 4 HOURS NEEDED FOR WHEEZING OR SHORTNESS OF BREATH (Patient not taking: Reported on 08/02/2022), Disp: , Rfl: amitriptyline (ELAVIL) 25 mg tablet, Take 25 mg by mouth nightly (Patient not taking: Reported on 08/02/2022), Disp: , Rfl: BD Ultra-Fine Short Pen Needle 31 gauge x 5/16 needle, USE 6 TIMES DAILY DIRECTED, Disp: , Rfl: blood glucose diagnostic (Postcron Ultra Test) strip, 4 (four) times a day, Disp: , Rfl: exemestane (AROMASIN) 25 mg tablet, Take 1 tablet (25 mg total) by mouth nightly, Disp: 90 tablet, Rfl: 0 HumaLOG 100 unit/mL pen for injection, , Disp: , Rfl: hydroCHLOROthiazide (MICROZIDE) 12.5 mg capsule, Take 1 capsule (12.5 mg total) by mouth daily, Disp: , Rfl: HYDROcodone-acetaminophen (NORCO) 7.5-325 mg per tablet, Take 1 tablet by mouth every 6 (six) hours, Disp: , Rfl: hydrOXYzine (ATARAX) 10 mg tablet, Take 1 tablet (10 mg total) by mouth 2 (two) times a day as needed for itching for up to 7 days, Disp: 14 tablet, Rfl: 0 insulin glargine (LANTUS) 100 unit/mL injection, Inject 40 Units under the skin daily. Takes in themorning (Patient taking differently: Inject 50 Units under the skin daily Takes in the morning), Disp: , Rfl: insulin lispro (HumaLOG) 100 unit/mL injection, Inject 12 Units under the skin 3 (three) times a day before meals. (Patient taking differently: Inject 22 Units under the skin 3 (three) times a day before meals), Disp: , Rfl: methenamine (HIPREX) 1 gram tablet, Take 1 tablet (1,000 mg total) by mouth 2 (two) times a day, Disp: , Rfl: naloxone (NARCAN) 4 mg/actuation spray,non-aerosol, , Disp: , Rfl: oxybutynin XL (DITROPAN-XL) 10 mg 24 hr tablet, TAKE 1 TABLET BY MOUTH EVERY DAY FOR OVERACTIVE BLADDER, Disp: , Rfl: rivaroxaban (Xarelto) 20 mg tablet, Take 1 tablet (20 mg total) by mouth daily, Disp: 30 tablet, Rfl: 3 rOPINIRole (REQUIP) 5 mg tablet, Take 1 tablet (5 mg total) by mouth nightly, Disp: , Rfl: ALLERGIES Allergies Allergen Reactions Ceftriaxone Anaphylaxis R [...] activity: Defer Alcohol Use: Not At Risk (09/12/2021) AUDIT-C Frequency of Alcohol Consumption: Never Average Number of Drinks: Patient does not drink Frequency of Binge Drinking: Never PHYSICAL EXAM TRIAGE VITAL SIGNS: ED Triage Vitals [01/26/23 1508] Temp Pulse Resp BP SpO2 36.5 ??C (97.7 ??F) 98 18 161/82 98 % Temp src Heart Rate Source Patient Position BP Location FiO2 (%) Temporal -- -- -- -- Height Height Method Weight Weight Method 1.549 m (5' 1 ) Stated 124.2 kg (273 lb 13 oz) Standing scale Physical Exam Vitals and nursing note reviewed. Constitutional: General: She is not in acute distress. Appearance: Normal appearance. She is well-developed. She is obese. She is not ill-appearing, toxic-appearing or diaphoretic. HENT: Head: Normocephalic and atraumatic. Jaw: There is normal jaw occlusion. Right Ear: Hearing and external ear normal. Left Ear: Hearing and external ear normal. Nose: Nose normal. Mouth/Throat: Mouth: Mucous membranes are dry. Eyes: General: Lids are normal. Vision grossly intact. Extraocular Movements: Extraocular movements intact. Conjunctiva/sclera: Conjunctivae normal. Neck: Trachea: Trachea and phonation normal. Cardiovascular: Rate and Rhythm: Normal rate and regular rhythm. Pulses: Normal pulses. Radial pulses are 2+ on the right side and 2+ on the left side. Dorsalis pedis pulses are 2+ on the right side [...] is 5. GCS motor subscore is 6. Cranial Nerves: Cranial nerves 2-12 are intact. Sensory: Sensation is intact. Motor: Motor function is intact. Coordination: Coordination is intact. Gait: Gait is intact. Psychiatric: Attention and Perception: Attention normal. Mood and Affect: Mood normal. Speech: Speech normal. Behavior: Behavior normal. Behavior is cooperative. Thought Content: Thought content normal. LABS Labs Reviewed URINALYSIS AND REFLEX TO MICROSCOPIC AND CULTURE - Abnormal Result Value Color, ur Yellow Clarity, ur Clear Specific gravity, ur 1.019 pH, urine 5.0 Protein, ur ql Negative Glucose, ur ql 2+ (*) Ketones, ur Negative Bilirubin, ur Negative Blood, ur 1+ (*) Urobilinogen, ur <2.0 Nitrite, ur Negative Leukocyte esterase, ur Negative UA reflex comment Reflex to microscopic UA will be performed. COMPREHENSIVE METABOLIC PANEL - Abnormal Sodium 135 Potassium, pl 4.0 Chloride 96 (*) CO2 28 Anion gap 11 BUN 18 Creatinine 0.80 Glucose 337 (*) Calcium 10.2 Bilirubin, total 0.5 Protein, pl 8.3 Albumin 3.9 Alk phos 86 ALT 17 AST 16 TROPONIN T HIGH-SENSITIVITY SERIES (BASELINE, 2HR, 4HR, 6HR) - Abnormal Trop T hs 26 (*) PROTIME-INR - Abnormal PT 15.1 (*) INR 1.2 SEPSIS LACTATE WITH REFLEX - Abnormal Sepsis Lactate 2.1 (*) TROPONIN T HIGH-SENSITIVITY 2-HOUR - Abnormal Trop T hs 25 (*) Trop T hs delta -1 Trop T hs interp Insignificant TROPONIN T HIGH-SENSITIVITY 4-HR - Abnormal Trop T hs 25 (*) Trop T hs delta -1 Trop T hs interp Insignificant URINALYSIS, MICROSCOPIC ONLY - Abnormal WBC, ur 0-5 RBC, ur 0-2 Epithelial cells, squamous, ur 1-5 Mucous, ur Present (*) Hyaline casts, ur 6-10 Culture Reflex Comment Value: Reflex conditions for urine culture (WBC >10) not met. POC BLOOD GAS AND CHEMISTRIES, ARTERIAL - Abnormal pH, art POC 7.45 pCO2, art POC 47 (*) pO2, art POC 80 (*) HCO3, art (Calc) POC 33 (*) Base excess, art POC 8 O2 Sat, art (Jabier) POC 97 (*) Oxy Hgb, art POC 94.9 Met Hgb, art POC 1.2 Carboxy Hgb, art POC 1.3 Hemoglobin, art POC 13.0 Sodium, art POC 136 Potassium, art POC 3.9 Glucose, art POC 201 (*) Ionized Calcium, art POC 5.20 (*) Lactate, art POC 1.0 CBC WITH AUTO DIFFERENTIAL WBC 9.4 Hgb 14.1 Hct 43.3 Plt 292 MPV 9.6 RBC 4.86 MCV 89.1 MCH 29.0 MCHC 32.6 RDW CV 13.7 RDW SD 44.6 NRBC abs 0.00 APTT aPTT 29 DIFFERENTIAL AUTO Neutrophil abs 6.0 Imm gran abs 0.0 Lymphocyte abs 2.5 Monocyte abs 0.6 Eosinophil abs 0.2 Basophil abs 0.0 Neutrophil pct 64.3 Imm gran pct 0.4 Lymphocyte pct 27.1 Monocyte pct 5.9 Eosinophil pct 2.0 Basophil pct 0.3 SEPSIS LACTATE WITH REFLEX Sepsis Lactate 1.3 CREATINE KINASE (CK), TOTAL CK 83 EGFR eGFR 81 AMMONIA Ammonia 22 CREATINE KINASE (CK), TOTAL POC BLOOD GAS AND CHEMISTRIES RADIOLOGY No results found. ED COURSE/MEDICAL DECISION MAKING ED Course as of 01/26/232125 Time: 01/27 1640 Comment: She came in for the complaint of right By: Blaze Armenta NP Time: 01/26 1642 Comment: She fell and hit her head approximately 4 weeks ago, she was evaluated in the ED, had a negative CT of her head, she was sent home, she states that since then she is having jerking like movements to right side of her body including right arm or right leg that usually last 10-15 minutes however during this episode she does not have any LOC, no loss of bowel or bladder, no mouth or tongue injury, she came in because these episodes are getting worse. By: Blaze Armenta NP Time: 01/26 1642 Comment: When I went to examine the patient in the room she was having similar episode, however sheis remained alert, oriented, she was having jerking like movements to only her right arm, there wasno jerking movement to her right lower leg, no other focal neurological deficit, her vital signs remained stable. She was also following my commands while she was having active jerking movement to her right arm. After few minutes her jerking stopped, she was not in any postictal phase. By: Blaze Armenta NP Time: 01/26 1643 Comment: Her CMP shows elevated blood glucose, lactic slightly elevated, she came unremarkable, CBCis unremarkable. By: Blaze Armenta NP Time: 01/26 1659 Comment: I received call from radiologist that patient had possible mediastinal widening on chest x-ray. I reviewed this with radiologist, may be due to rotation and technique, but will get CT chest.PA denies any chest or respiratory symptoms. Will get CT chest with contrast. I also discussed patient's symptoms of possible focal seizure and need to discuss with neurologist. By: Gil Diez DO Time: 01/27 1708 Comment: CT of head is unremarkable for any acute finding. By: Blaze Armenta NP Time: 01/27 2004 Comment: CT of her head is unremarkable, x-ray was questionable for mediastinum injury, chest CT unremarkable for any acute finding. By: Blaze Armenta NP Time: 01/27 2004 Comment: I discussed this case with on-call neurologist Gloria MCKEON who advised me to obtain ABG and ammonia level to rule out any metabolic cause. She advised me that if this thing come back normal sheis okay to go home with outpatient follow-up with neurologist. By: Blaze Armenta NP Time: 01/27 2116 Comment: Her ammonia level is largely unremarkable. By: Blaze Armenta NP Time: 01/27 2116 Comment: Her ABG does show mild retention see your to however pH is unremarkable. She does have history of sleep apnea and she uses CPAP at home. By: Blaze Armenta NP Time: 01/27 2120 Comment: I am sending her home with the instruction to follow-up with neurologist on outpatient basis, given information of Dr. Trammell to follow up with for further evaluation. I did give her detail instruction to return to ED immediately for any worsening symptoms. She agrees with this plan. By: Blaze Armenta NP Procedures FINAL IMPRESSION Abnormal involuntary movement DISPOSITION: Home All findings were discussed with patient. Pt agreeable with plan. Non toxic appearing, vitals stable. Patient stable for discharge home. Given return to ER precautions Close outpatient follow-up with a low threshold to return has been mandated , concerning symptoms have been emphasized in detail, and this patient expresses understanding PATIENT INSTRUCTED TO FOLLOW UP [place]ammell [place], [place] [address] [facility] [address] [place] [address] [place] [id number] DISCHARGE MEDICATIONS Your medication list CONTINUE taking these medications Instructions Last Dose Given Next Dose Due BD Ultra-Fine Short Pen Needle 31 gauge x 5/16 needle Generic drug: pen needle, diabetic USE 6 TIMES DAILY DIRECTED ASK your doctor about these medications Instructions Last Dose Given Next Dose Due albuterol HFA 90 mcg/actuation inhaler Commonly known as: PROVENTIL HFA,VENTOLIN HFA,PROAIR HFA INHALE 2 PUFFS INTO LUNGS BY MOUTH EVERY 4 HOURS NEEDED FOR WHEEZING OR SHORTNESS OF BREATH amitriptyline 25 mg tablet Commonly known as: ELAVIL Take 25 mg by mouth nightly exemestane 25 mg tablet Doctor's comments: To replace lost bottle of medicine Commonly known as: AROMASIN Take 1 tablet (25 mg total) by mouth nightly hydroCHLOROthiazide 12.5 mg capsule Commonly known as: MICROZIDE Take 1 capsule (12.5 mg total) by mouth daily HYDROcodone-acetaminophen 7.5-325 mg per tablet Commonly known as: NORCO Take 1 tablet by mouth every 6 (six) hours hydrOXYzine 10 mg tablet Commonly known as: ATARAX Take 1 tablet (10 mg total) by mouth 2 (two) times a day as needed for itching for up to 7 days insulin glargine 100 unit/mL vial for injection Commonly known as: LANTUS, SEMGLEE Inject 40 Units under the skin daily. Takes in the morning insulin lispro 100 unit/mL vial for injection Commonly known as: HumaLOG, ADMELOG Inject 12 Units under the skin 3 (three) times a day before meals. HumaLOG 100 unit/mL pen for injection Generic drug: insulin lispro methenamine 1 gram tablet Commonly known as: HIPREX Take 1 tablet (1,000 mg total) by mouth 2 (two) times a day naloxone 4 mg/actuation spray,non-aerosol Commonly known as: NARCAN OneTouch Ultra Test strip Generic drug: blood glucose diagnostic 4 (four) times a day oxyBUTYnin XL 10 mg 24 hr tablet Commonly known as: DITROPAN-XL Ask about: Which instructions should I use? TAKE 1 TABLET BY MOUTH EVERY DAY FOR OVERACTIVE BLADDER rivaroxaban 20 mg tablet Commonly known as: Xarelto Take 1 tablet (20 mg total) by mouth daily rOPINIRole 5 mg tablet Commonly known as: REQUIP Take 1 tablet (5 mg total) by mouth nightly This examination was transcribed using the [employer] voice recognition system without human consulting psychiatrist. In an effort to expedite patient care, this report has not been adjusted for typographical, grammatical, and syntax by a trained medical equipment technician. Blaze Armenta NP 01/26/232125 Cosigned by Gil Diez DO at 01/31/2023 6:23 AM CDT * Kathryn Santana RN - 01/26/2023 3:04 PM CDT Pt reports she has post concussion syndrome after falling 5 weeks ago. She states she is experiencing R side body shaking and doesn't know if she is having a seizure and states when she comes out of these spells she is unaware of surroundings. During these spells pt says they last 10-30 mins and becomes flushed and her heart races and she can't stop the shaking. Also reports decreased appetite. Denies loss of bowel or bladder during these episodes. documented in this encounter Plan of Treatment Pending Results Name Type Priority Associated Diagnoses Date /Time Creatine kinase (CK), total Lab STAT 01/26/2023 3:14 PM CDT Scheduled Orders Name Type Priority Associated Diagnoses Orde r Schedule Creatine kinase (CK), total Lab STAT Once for 1 Occur rences starting 01/26/2023 until 01/26/2023 documented as of this encounter Procedures Procedure Name Priority Date/Time Associated Diagnosis Comments POC BLOOD GAS AND CHEMISTRIES, ARTERIAL Routine 01/26/2023 8:31 PM CDT AMMONIA STAT 01/26/2023 8:18 PM CDT TROPONIN T HIGH-SENSITIVITY 4-HR Timed 01/26/2023 7:12 PM CDT URINALYSIS AND REFLEX TO MICROSCOPIC AND CULTURE STAT 01/26/2023 6:54 PM CDT URINALYSIS, MICROSCOPIC ONLY STAT 01/26/2023 6:54 PM CDT SEPSIS LACTATE WITH REFLEX Timed 01/26/2023 6:[address] CHEST W CONTRAST ED 01/26/2023 6 :33 PM CDT TROPONIN T HIGH-SENSITIVITY 2-HOUR Timed 01/26/2023 5:[address] HEAD WO CONTRAST ED 01/26/2023 4 :45 PM CDT XR CHEST 1 VIEW ED 01/26/2023 4:44 PM CDT ECG 12-LEAD STAT 01/26/2023 3:24 PM CDT SEPSIS LACTATE WITH REFLEX STAT 01/26/2023 3:17 PM CDT TROPONIN T HIGH-SENSITIVITY SERIES (BASELINE, 2HR, 4HR, 6HR) STAT 01/26/2023 3:14 PM CDT EGFR STAT 01/26/2023 3:14 PM CDT DIFFERENTIAL AUTO STAT 01/26/2023 3:1 4 PM CDT CBC WITH AUTO DIFFERENTIAL STAT 01/26/2023 3:14 PM CDT APTT STAT 01/26/2023 3:14 PM CDT PROTIME-INR STAT 01/26/2023 3:14 PM CDT CREATINE KINASE (CK), TOTAL STAT 01/26/2023 3:14 PM CDT COMPREHENSIVE METABOLIC PANEL STAT 01/26/2023 3:14 PM CDT documented in this encounter Results * (ABNORMAL) POC Blood Gas and Chemistries, Arterial - (01/26/2023 8:31 PM CDT) pH, art POC 7.45 7.35 - 7.45 MARY JANE Comment:Testing performed by : [address] [address] pCO2, art POC 47(H) 35 - 45 mmHg MARY JANE Comment:Testing performed by : [address] [address] pO2, art POC 80(L) 83 - 108 mmHg MARY JANE Comment:Testing performed by : [address] [address] HCO3, art (Calc) POC 33(H) 20 - 30 mmol/L MARY JANE Comment:Testing performed by : [address] [address] Base excess, art POC 8 mmol/L MARY JANE Comment: Interpretive Data No reference range established. Current interpretive data was last revised 2019. Testing performed by: [address] [address] O2 Sat, art (Jabier) POC 97(H) 90 - 95 % MARY JANE Comment:Testing performed by : [address] [address] Oxy Hgb, art POC 94.9 90.0 - 95.0 % MARY JANE Comment:Testing performed by : [address] [address] Met Hgb, art POC 1.2 0.0 - 1.9 % MARY JANE Comment:Testing performed by : [address] [address] Carboxy Hgb, art POC 1.3 0.0 - 2.9 % MARY JANE Comment:Testing performed by : [address] [address] Hemoglobin, art POC 13.0 11.9 - 15.5 g/dL MARY JANE Comment:Testing performed by : [address] [address] Sodium, art POC 136 135 - 145 mmol/L MARY JANE Comment:Testing performed by : [address] [address] Potassium, art POC 3.9 3.3 - 4.9 mmol/L MARY JANE Comment: Interpretive Data This method is not able to assess for hemolysis, which may falsely increase potassium concentrations. If further testing is needed to evaluate this result, consider in-laboratory plasma potassium. Current Interpretive Data was last revised on 2022. Testing performed by: [address] [address] Glucose, art POC 201(H) 70 - 199 mg/dL MARY JANE Comment:Testing performed by : [address] [address] Ionized Calcium, art POC 5.20(H) 4.50 - 5.10 mg/dL MARY JANE Comment:Testing performed by : [address] [address] Lactate, art POC 1.0 0.7 - 2.0 mmol/L MARY JANE Comment:Testing performed by : [address] [address] Blood 01/26/2023 8:31 PM CDT 01/26/2023 8:31 PM CDT us Notinfile Unknown LAB POCT ORDERABLES - DEVICE F inal Result Performing Organization Address [facility] de Phone Number [facility] [address] [facility] Department of Laboratories [place], [place] [id number] * Ammonia (01/26/2023 8:18 PM CDT) Ammonia 22 19 - 82 mcg/dL MARY JANE Comment:Testing performed by : [address] [address] Blood 01/26/2023 8:18 PM CDT 01/26/2023 8:22 PM CDT us Blaze Armenta [employer] LAB BLOOD ORDERABLES Final Resul t Performing Organization Address [facility] Co de Phone Number MARY JANE [address] [facility] Department [place] [address] * (ABNORMAL) Troponin T high-sensitivity 4-hour (01/26/2023 7:12 PM CDT) Trop T hs 25(H) <=14 ng/L MARY JANE Comment: Interpretive Data For further hscTnT resources including the diagnostic algorithm and an aid in interpretation, copy and paste this link: [email or web address].testcatalog.org/show/[email or web address] Current Interpretive Data last revised 2020. Testing performed by: [address] [address] Trop T hs delta -1 ng/L MARY JANE Comment:Testing performed by : [address] [address] Trop T hs interp Insignificant MARY JANE Comment:Testing performed by : [address] [address] Blood 01/26/2023 7:12 PM CDT 01/26/2023 7:17 PM CDT Gil Diez DO LAB BLOOD ORDERABLES Final Result Performing Organization Address [facility] Co de Phone Number MARY JANE [address] [facility] Department [place] [address] * (ABNORMAL) Urinalysis, microscopic only (01/26/2023 6:54 PM CDT) WBC, ur 0-5 0 - 5 /HPF MARY JANE Comment:Testing performed by : [address] [address] RBC, ur 0-2 0 - 2 /HPF MARY JANE Comment:Testing performed by : [address] [address] Epithelial cells, squamous, ur 1-5 0 - 5 /HPF MARY JANE Comment:Testing performed by : [address] [address] Mucous, ur Present(A) MARY JANE PHAM Comment:Testing performed by : [facility], [address] [place] [address]., [address] Hyaline casts, ur 6-10 0 - 10 /LPF MARY JANE PHAM Comment:Testing performed by : [address] [address] Culture Reflex Comment Reflex conditions for urine culture (WBC >10) not met. MARY JANE Comment:Testing performed by : [address] [address] Urine 01/26/2023 6:54 PM CDT 01/26/2023 6:56 PM CDT Gil Diez DO LAB URINE ORDERABLES Final Result Performing Organization Address City/State/[facility] Co de Phone Number MARY JANE PHAM [address] [facility] Department [place] [address] * (ABNORMAL) Urinalysis reflex to microscopic and culture Urine (01/26/2023 6:54 PM CDT) Color, ur Yellow Yellow MARY JANE PHAM Comment:Testing performed by : [address] [address] Clarity, ur Clear Clear MARY JANE PHAM Comment:Testing performed by : [address] [address] Specific gravity, ur 1.019 1.003 - 1.030 MARY JANE PHAM Comment:Testing performed by : [address] [address] pH, urine 5.0 MARY JANE PHAM Comment: Interpretive Data ? Urine pH is affected by diet, medications, systemic acid-base disturbances, and renal tubular function. ??pH may affect urinary stone formation. ??For example, urine pH below 6.0 may help reduce the tendency for calcium phosphate stones and pH greater than 6.0 may reduce the tendency for uric acid stone formation. Source: Expertcloud.de Current Interpretive Data was last revised on 2017 Testing performed by: [address] [address] Protein, ur ql Negative Negative MARY JANE PHAM Comment:Testing performed by : [address] [place] [address] Glucose, ur ql 2+(A) Negative MARY JANE PHAM Comment:Testing performed by : [address], [place]., [address] Ketones, ur Negative Negative MARY JANE Comment:Testing performed by : [address], [place]., [address] Bilirubin, ur Negative Negative MARY JANE Comment:Testing performed by : [address], [place]., [address] Blood, ur 1+(A) Negative MARY JANE PHAM Comment:Testing performed by : [address], [place]., [address] Urobilinogen, ur <2.0 <2.0 mg/dL MARY JANE PHAM Comment:Testing performed by : [address], [place]., [address] Nitrite, ur Negative Negative MARY JANE Comment:Testing performed by : [address], [place]., [address] Leukocyte esterase, ur Negative Negative MARY JANE Comment:Testing performed by : [address], [place]., [address] UA reflex comment Reflex to microscopic UA will be performed. MARY JANE Comment:Testing performed by : [address] [address] Urine 01/26/2023 6:54 PM CDT 01/26/2023 6:56 PM CDT Gil Diez DO LAB MICROBIOLOGY - GENERAL ORDERABLES Final Result MARY JANE PHAM [address] [facility] Department of Laboratories [place], [place] [id number] * Sepsis Lactate w/ Reflex (01/26/2023 6:40 PM CDT) Sepsis Lactate 1.3 0.7 - 2.0 mmol/L MARY JANE PHAM Comment:Testing performed by : [address], [place]., [address] Blood 01/26/2023 6:40 PM CDT 01/26/2023 6:48 PM CDT us Blaze Armenta NP LAB BLOOD ORDERABLES Final Resul t MARY JANE MH [address] [facility] Department [place] [address] * CT Chest W Contrast (01/26/2023 6:33 PM CDT) Anatomical Region Laterality Modality Body N/A Computed Tomogra phy 01/26/2023 7:02 PM CDT Narrative 01/26/2023 7:08 PM CDT EXAM DESCRIPTION: CT CHEST W CONTRAST REASON FOR STUDY: Mediastinal widening, abnormal lungs and mediastinum on CXR ?? Abnormal xray - mediastinal widening, abnormal lungs and mediastinum on CXR ? TECHNIQUE: CT scan of the chest performed with intravenous contrast using helical scanning technique with dynamic intravenous contrast injection. ?? Reconstructed coronal and sagittal MPR images reviewed. All images stored on PACS. ??Automated exposure control was used as a dose optimization technique for this examination. CONTRAST TYPE/DOSE: 100mL of IOVERSOL 350 MG IODINE/ML INTRAVENOUS SOLUTION ?? injected via ??intravenous COMPARISON: 10/06/2019 REFERENCE: Per ACR white paper recommendations, unless otherwise specified no follow-up imaging is recommended for incidental renal and adrenal lesions per consensus recommendations based on imaging criteria. Further lab evaluation could be pursued based on clinical findings. FINDINGS: LUNGS: ??No nodules or masses. No pneumonia. PLEURA: ??No effusion. No pneumothorax. MEDIASTINUM/SHALA: ?? No identified masses or abnormal nodes. HEART: ??Heart size is normal with no pericardial effusion. VASCULATURE: ??No thoracic aortic aneurysm. AXILLA: ??No adenopathy. CHEST WALL: ??No masses. ??No subcutaneous air. HARDWARE/LINES/TUBES: ?? None. UPPER ABDOMEN: ??No significant abnormality. MUSCULOSKELETAL: ??Mild degenerative changes are seen of the thoracic spine. ?? Surgical implant is seen of the midthoracic spine. OTHER: ??No other significant abnormality. IMPRESSION: Unremarkable CT of the chest. ??No lung pathology is seen. ??No abnormality is seen of the mediastinum. THIS IS AN ELECTRONICALLY VERIFIED FINAL REPORT 01/26/2023 7:08 PM - Electronically signed by ??Patrick STOCKTON: KATH D: ??01/26/2023 7:08 PM T: ??01/26/2023 7:08 PM Report ID: [id number] Reading Location: ??[id number] Procedure Note Patrick Zhou MD - 01/26/2023 EXAM DESCRIPTION: CT CHEST W CONTRAST REASON FOR STUDY: Mediastinal widening, abnormal lungs and mediastinum onCXR Abnormal xray - mediastinal widening, abnormal lungs and mediastinum onCXR TECHNIQUE: CT scan of the chest performed with intravenous contrast using helical scanning technique with dynamic intravenous contrast injection. Reconstructed coronal and sagittal MPR images reviewed. All images storedon PACS. Automated exposure control was used as a dose optimizationtechnique for this examination. CONTRAST TYPE/DOSE: 100mL of IOVERSOL 350 MG IODINE/ML INTRAVENOUSSOLUTION injected via intravenous COMPARISON: 10/06/2019 REFERENCE: Per ACR white paper recommendations, unless otherwise specifiedno follow-up imaging is recommended for incidental renal and adrenal lesionsper consensus recommendations based on imaging criteria. Further labevaluation could be pursued based on clinical findings. FINDINGS: LUNGS: No nodules or masses. No pneumonia. PLEURA: No effusion. No pneumothorax. MEDIASTINUM/SHALA: No identified masses or abnormal nodes. HEART: Heart size is normal with no pericardial effusion. VASCULATURE: No thoracic aortic aneurysm. AXILLA: No adenopathy. CHEST WALL: No masses. No subcutaneous air. HARDWARE/LINES/TUBES: None. UPPER ABDOMEN: No significant abnormality. MUSCULOSKELETAL: Mild degenerative changes are seen of the thoracicspine. Surgical implant is seen of the midthoracic spine. OTHER: No other significant abnormality. IMPRESSION: Unremarkable CT of the chest. No lung pathology is seen. No abnormality is seen of the mediastinum. THIS IS AN ELECTRONICALLY VERIFIED FINAL REPORT 01/26/2023 7:08 PM - Electronically signed by Patrick STOCKTON: KATH Report ID: [id number] Reading Location: [id number] Gil Diez DO IMG CT PROCEDURES Final Res ult * (ABNORMAL) Troponin T high-sensitivity 2-hour (01/26/2023 5:24 PM CDT) Trop T hs 25(H) <=14 ng/L MARY JANE PHAM Comment: Ref Range High Interpretive Data For further hscTnT resources including the diagnostic algorithm and an aid in interpretation, copy and paste this link: https://nrl.testcatalog.org/show/hsTrop Current Interpretive Data last revised 2020. Testing performed by: [address] [address] Trop T hs delta -1 ng/L MARY JANE PHAM Comment:Testing performed by : [address] [address] Trop T hs interp Insignificant MARY JANE PHAM Comment:Testing performed by : [address] [address] Blood 01/26/2023 5:24 PM CDT 01/26/2023 5:28 PM CDT Gil Diez DO LAB BLOOD ORDERABLES Final Result MARY JANE [address] [facility] Department [place] [address] * CT Head WO Contrast (01/26/2023 4:45 PM CDT) Anatomical Region Laterality Modality Head and Neck N/A Computed Tomogra phy 01/26/2023 5:00 PM CDT Narrative 01/26/2023 5:03 PM CDT EXAM DESCRIPTION: CT HEAD WO CONTRAST REASON FOR STUDY: Headache. TECHNIQUE: Axial images acquired through the brain without intravenous contrast. ??Images stored on PACS. ?? Automated exposure control was used as a dose optimization technique for this examination. COMPARISON: 12/11/2022 FINDINGS: BRAIN: ?? No hemorrhage, edema or mass effect. No recent infarct. ? Normal white matter. ? EXTRA-AXIAL SPACES: ?? No fluid collections. No masses. CALVARIUM: ?? No fracture. SINUSES/MASTOIDS: ?? No fluid or mucosal thickening. ORBITS: ?? No significant abnormality. OTHER: ?? No other significant abnormality. IMPRESSION: No acute intracranial findings. THIS IS AN ELECTRONICALLY VERIFIED FINAL REPORT 01/26/2023 5:03 PM - Electronically signed by ??Albert Thakur M.D. MM: MM D: ??01/26/2023 5:03 PM T: ??01/26/2023 5:03 PM Report ID: [id number] Reading Location: ??[id number] Procedure Note Albert Thakur MD - 01/26/2023 EXAM DESCRIPTION: CT HEAD WO CONTRAST REASON FOR STUDY: Headache. TECHNIQUE: Axial images acquired through the brain without intravenous contrast. Images stored on PACS. Automated exposure control was used asa dose optimization technique for this examination. COMPARISON: 12/11/2022 FINDINGS: BRAIN: No hemorrhage, edema or mass effect. No recent infarct. Normal white matter. EXTRA-AXIAL SPACES: No fluid collections. No masses. CALVARIUM: No fracture. SINUSES/MASTOIDS: No fluid or mucosal thickening. ORBITS: No significant abnormality. OTHER: No other significant abnormality. IMPRESSION: No acute intracranial findings. THIS IS AN ELECTRONICALLY VERIFIED FINAL REPORT 01/26/2023 5:03 PM - Electronically signed by Albert Thakur M.D. MM: MM Report ID: [id number] Reading Location: [id number] Blaze Armenta NP IMG CT PROCEDURES Final Result * XR Chest 1 Vw Portable (01/26/2023 4:44 PM CDT) Anatomical Region Laterality Modality Body, Chest N/A Computed Radiogr aphy 01/26/2023 4:50 PM CDT Narrative 01/26/2023 5:00 PM CDT EXAM DESCRIPTION: XR CHEST 1 VIEW REASON FOR STUDY: Seizure TECHNIQUE: 1 ??radiographic view(s) of the chest. COMPARISON: 10/05/2022. ??Chest CT dated 10/05/2022 FINDINGS: LUNGS: ??There is new opacification of the left lower lung which could represent a effusion or consolidation. ??There is no right pleural effusion. ??No pneumothorax is visualized. ??There is a skin fold projecting over the lung apices. ?? HEART/MEDIASTINUM: ??The heart size is obscured. ??There is suggested widening of the superior mediastinum. LINES/TUBES: ??None. BONES: ??No acute osseous abnormality. IMPRESSION: 1. ??Suggested new widening of the superior mediastinum . ??While this appearance may be due to technique and patient rotation, CT of the chest with contrast is recommended to exclude true mediastinal widening. 2. ??New opacification of the left lower lung. ??This may represent an effusion with atelectasis or airspace opacity. ??This can also be further evaluated with chest CT. Findings discussed with Dr. Diez at 4:55 PM on 01/26/2023. THIS IS AN ELECTRONICALLY VERIFIED FINAL REPORT 01/26/2023 5:00 PM - Electronically signed by ??Albert Thakur M.D. MM: MM D: ??01/26/2023 5:00 PM T: ??01/26/2023 5:00 PM Report ID: [id number] Reading Location: ??[id number] Procedure Note Albert Thakur MD - 01/26/2023 EXAM DESCRIPTION: XR CHEST 1 VIEW REASON FOR STUDY: Seizure TECHNIQUE: 1 radiographic view(s) of the chest. COMPARISON: 10/05/2022. Chest CT dated 10/05/2022 FINDINGS: LUNGS: There is new opacification of the left lower lung which could represent a effusion or consolidation. There is no right pleural effusion. No pneumothorax is visualized. There is a skin fold projecting over the lung apices. HEART/MEDIASTINUM: The heart size is obscured. There is suggestedwidening of the superior mediastinum. LINES/TUBES: None. BONES: No acute osseous abnormality. IMPRESSION: 1. Suggested new widening of the superior mediastinum .While this appearance may be due to technique and patient rotation, CT of thechest with contrast is recommended to exclude true mediastinal widening. 2. New opacification of the left lower lung. This may represent aneffusion with atelectasis or airspace opacity. This can also be further evaluatedwith chest CT. Findings discussed with Dr. Diez at 4:55 PM on 01/26/2023. THIS IS AN ELECTRONICALLY VERIFIED FINAL REPORT 01/26/2023 5:00 PM - Electronically signed by Albert Thakur M.D. MM: MM Report ID: [id number] Reading Location: [id number] Blaze Armenta NP IMG XR PROCEDURES Final Result * ECG 12 lead (01/26/2023 3:24 PM CDT) Pathologist [facility] Ventricular Rate EKG/Min 96 BPM [facility] Atrial Rate 96 BPM [facility] MO-Interval (MSEC) 122 ms [facility] QRS-Interval (MSEC) 86 ms [facility] QT-Interval (MSEC) 342 ms [facility] QTc 432 ms [facility] P Aiken 38 degrees [facility] R Aiken -5 degrees [facility] T Aiken 49 degrees [facility] Diagnosis Normal sinus rhythm Possible Left atrial enlargement Borderline ECG When compared with ECG of 05-OCT-2022 18:38, No significant change was found Confirmed by WILLIAMS HAMMOND M.D. ([id number]) on 01/27/2023 12:11:26 AM [facility] 01/26/2023 3:24 PM CDT 01/27/2023 12:11 AM CDT us Gil Diez DO ECG ORDERABLES Final Resul t [facility] * (ABNORMAL) Sepsis Lactate w/ Reflex (01/26/2023 3:17 PM CDT) Pathologist [facility] Sepsis Lactate 2.1(C) 0.7 - 2.0 mmol/L MARY JANE PHAM Comment: Critical Result called to and read back by bonnie decker, DATE: 2023-01-26 15:59:58 BY: [email or web address] Testing performed by: [facility], [facility] [place]., [address] Blood 01/26/2023 3:17 PM CDT 01/26/2023 3:21 PM CDT us Blaze Armenta NP LAB BLOOD ORDERABLES Final Resul t MARY JANE [address] [facility] Department [place] [address] * eGFR (01/26/2023 3:14 PM CDT) eGFR 81 mL/min/1. 73 m2 MARY JANE PHAM Comment: Interpretive Data Reference Interval Normal ?>/= [...] was last reviewed 2021. Testing performed by: [facility], [address] [place]., [address] Blood 01/26/2023 3:14 PM CDT 01/26/2023 3:22 PM CDT Gil Diez DO LAB BLOOD ORDERABLES Final Result Performing Organization Address City/[facility] Co de Phone Number [address] [address] * Creatine kinase (CK), total (01/26/2023 3:14 PM CDT) Pathologist [facility] CK 83 30 - 200 Units/L MARY JANE Comment:Testing performed by : [address] [address] Blood 01/26/2023 3:14 PM CDT 01/26/2023 3:22 PM CDT Blaze Armenta NP LAB BLOOD ORDERABLES Final Resul t Performing Organization Address [facility] de Phone Number [address] [place] [address] * Differential, auto (01/26/2023 3:14 PM CDT) Pathologist [facility] Neutrophil abs 6.0 1.7 - 6.5 K/cumm MARY JANE Comment:Testing performed by : [address] [address] Imm gran abs 0.0 0.0 - 0.1 K/cumm MARY JANE Comment:Testing performed by : [address] [address] Lymphocyte abs 2.5 0.8 - 3.3 K/cumm MARY JANE Comment:Testing performed by : [address] [address] Monocyte abs 0.6 0.2 - 0.8 K/cumm MARY JANE Comment:Testing performed by : [address] [address] Eosinophil abs 0.2 0.0 - 0.5 K/cumm MARY JANE Comment:Testing performed by : [address] [address] Basophil abs 0.0 0.0 - 0.1 K/cumm MARY JANE Comment:Testing performed by : [address] [address] Neutrophil pct 64.3 % [facility] Comment: Interpretive Data Percent cell count reference ranges are not reported, since discordance with absolute values may lead to misinterpretation of CBC data. Current Interpretive Data was last revised on 2017. Testing performed by: [address] [address] Imm gran pct 0.4 % [facility] Comment: Interpretive Data Percent cell count reference ranges are not reported, since discordance with absolute values may lead to misinterpretation of CBC data. Current Interpretive Data was last revised on 2017. Testing performed by: [address] [address] Lymphocyte pct 27.1 % [facility] Comment: Interpretive Data Percent cell count reference ranges are not reported, since discordance with absolute values may lead to misinterpretation of CBC data. Current Interpretive Data was last revised on 2017. Testing performed by: [address] [address] Monocyte pct 5.9 % [facility] Comment: Interpretive Data Percent cell count reference ranges are not reported, since discordance with absolute values may lead to misinterpretation of CBC data. Current Interpretive Data was last revised on 2017. Testing performed by: [address] [address] Eosinophil pct 2.0 % [facility] Comment: Interpretive Data Percent cell count reference ranges are not reported, since discordance with absolute values may lead to misinterpretation of CBC data. Current Interpretive Data was last revised on 2017. Testing performed by: [address] [address] Basophil pct 0.3 % [facility] Comment: Interpretive Data Percent cell count reference ranges are not reported, since discordance with absolute values may lead to misinterpretation of CBC data. Current Interpretive Data was last revised on 2017. Testing performed by: [address] [address] Blood 01/26/2023 3:14 PM CDT 01/26/2023 3:22 PM CDT Gil Diez LAB BLOOD ORDERABLES Final Result Performing Organization Address [facility] Co de Phone Number MARY JANE [facility] [place] [address] * aPTT (01/26/2023 3:14 PM CDT) aPTT 29 22 - 37 sec MARY JANE Comment: Interpretive data aPTT test has not been evaluated for monitoring heparin therapy. The anti-Xa is the preferred test. Current interpretive data was last revised on 2019. Testing performed by: [address] [address] Blood 01/26/2023 3:14 PM CDT 01/26/2023 3:22 PM CDT Gil Sheehan Neomerna LAB BLOOD ORDERABLES Final Result Performing Organization Address [facility] Co de Phone Number [address] [address] * (ABNORMAL) Protime-INR (01/26/2023 3:14 PM CDT) PT 15.1(H) 12.0 - 14.6 sec MARY JANE Comment: Ref Range High Testing performed by: [address] [address] INR 1.2 0.9 - 1.2 MARY JANE Comment: Ref Range High Interpretive data Oral anticoagulant therapeutic ranges: Venous thromboembolism prophylaxis or treatment: 2.0-3.0 CARDIOLOGY Standard range: 2.0-3.0 High-intensity range: 2.5-3.5 Refer to indication-specific guidelines for appropriate target ranges for prosthetic heart valve replacement. Current interpretive data was last revised on 2019. Testing performed by: [address] [address] Blood 01/26/2023 3:14 PM CDT 01/26/2023 3:22 PM CDT Gil Deiz DO LAB BLOOD ORDERABLES Final Result MARY JANE PHAM [address] [facility] Department [place] [address] * (ABNORMAL) Troponin T high-sensitivity series (baseline, 2hr, 4hr, 6hr) (01/26/2023 3:14 PM CDT) Trop T hs 26(H) <=14 ng/L MARY JANE PHAM Comment: Ref Range High Interpretive Data For further hscTnT resources including the diagnostic algorithm and an aid in interpretation, copy and paste this link: https://nrl.testcatalog.org/show/hsTrop Current Interpretive Data last revised 2020. Testing performed by: [address] [address] Blood 01/26/2023 3:14 PM CDT 01/26/2023 3:22 PM CDT Gil Diez DO LAB BLOOD ORDERABLES Edited Result - Final Performing Organization Address [facility]/ZIP Co de Phone Number MARY JANE PHAM [facility] [place] [address] * (ABNORMAL) Comprehensive metabolic panel (01/26/2023 3:14 PM CDT) Sodium 135 135 - 145 mmol/L MARY JANE PHAM Comment:Testing performed by : [address] [address] Potassium, pl 4.0 3.3 - 4.9 mmol/L MARY JANE PHAM Comment:Testing performed by : [address] [address] Chloride 96(L) 97 - 110 mmol/L MARY JANE Comment:Testing performed by : [address] [address] CO2 28 22 - 32 mmol/L MARY JANE PHAM Comment:Testing performed by : [address] [address] Anion gap 11 2 - 15 mmol/L MARY JANE Comment:Testing performed by : [address] [address] BUN 18 6 - 25 mg/dL MARY JANE Comment:Testing performed by : [address] [address] Creatinine 0.80 0.60 - 1.10 mg/dL MARY JANE Comment:Testing performed by : [address] [address] Glucose 337(H) 70 - 199 mg/dL MARY JANE Comment: [...] was last revised 2022. Testing performed by: [address] [address] Calcium 10.2 8.5 - 10.3 mg/dL MARY JANE Comment:Testing performed by : [address] [address] Bilirubin, total 0.5 0.1 - 1.2 mg/dL MARY JANE Comment:Testing performed by : [address] [address] Protein, pl 8.3 6.5 - 8.5 g/dL MARY JANE Comment:Testing performed by : [address] [address] Albumin 3.9 3.5 - 5.0 g/dL MARY JANE Comment:Testing performed by : [address] [address] Alk phos 86 40 - 130 Units/L MARY JANE Comment:Testing performed by : [address] [address] ALT 17 7 - 45 Units/L MARY JANE PHAM Comment:Testing performed by : [address] [address] AST 16 10 - 45 Units/L MARY JANE PHAM Comment:Testing performed by : [address] [address] Blood 01/26/2023 3:14 PM CDT 01/26/2023 3:22 PM CDT us Gil Diez DO LAB BLOOD ORDERABLES Final Result MARY JANE [address] [facility] Department [place] [address] * CBC with auto differential (01/26/2023 3:14 PM CDT) WBC 9.4 3.8 - 9.9 K/cumm MARY JANE PHAM Comment:Testing performed by : [address] [address] Hgb 14.1 11.9 - 15.5 g/dL MARY JANE PHAM Comment:Testing performed by : [address] [address] Hct 43.3 35.6 - 45.5 % MARY JANE PHAM Comment:Testing performed by : [address] [address] Plt 292 150 - 400 K/cumm MARY JANE PHAM Comment:Testing performed by : [address] [address] MPV 9.6 9.1 - 12.3 fL MARY JANE PHAM Comment:Testing performed by : [address] [address] RBC 4.86 3.90 - 5.20 M/cumm MARY JANE PHAM Comment:Testing performed by : [address] [address] MCV 89.1 81.3 - 96.4 fL MARY JANE PHAM Comment:Testing performed by : [address] [address] MCH 29.0 27.1 - 33.3 pg MARY JANE PHAM Comment:Testing performed by : [facility], [address] [place] [address]., [address] MCHC 32.6 32.3 - 35.7 g/dL MARY JANE PHAM Comment:Testing performed by : [facility], [address] [place] [address]., [address] RDW CV 13.7 11.1 - 14.9 % MARY JANE PHAM Comment:Testing performed by : [facility], [address] [place] [address]., [address] RDW SD 44.6 35.7 - 48.1 fL MARY JANE PHAM Comment:Testing performed by : [address] [address] NRBC abs 0.00 0.00 - 0.01 K/cumm MARY JANE PHAM Comment:Testing performed by : [facility], [address] [place] [address]., [address] Blood 01/26/2023 3:14 PM CDT 01/26/2023 3:22 PM CDT us Gil Diez DO LAB BLOOD ORDERABLES Final Result Performing Organization Address City/State/[facility] Co de Phone Number MARY JANE [address] [facility] Department [place] [address] documented in this encounter Visit Diagnoses Diagnosis Abnormal involuntary movement- Primary Abnormal involuntary movements documented in this encounter Administered Medications Inactive Administered Medications - up to 3 most recent administrations Medication Order MAR Action Action Date Dose Rate Site acetaminophen (TYLENOL) tablet 650 mg 650 mg, oral, Once, On Valeri 01/26/23 at 1809, For 1 dose Given 01/26/2023 6:37 PM CDT 650 mg ioversoL (OPTIRAY 350) injection 100 mL 100 mL, intravenous, Once in imaging, contrast, Starting on Valeri 01/26/23 at 1833, For 1 dose Contrast Given 01/26/2023 6:34 PM CDT 100 mL ondansetron (ZOFRAN) injection 4 mg 4 mg, intravenous, Administer over 2 Minutes, Once, On Valeri 01/26/23 at 1612, For 1 dose Given 01/26/2023 4:20 PM CDT 4 mg ondansetron (ZOFRAN) injection 4 mg 4 mg, intravenous, Administer over 2 Minutes, Once, On Valeri 01/26/23 at 1710, For 1 dose Given 01/26/2023 5:22 PM CDT 4 mg sodium chloride 0.9% bolus 1,000 mL 1,000 mL, intravenous, at 1,000 mL/hr, Administer over 1 Hours, Once, On Valeri 01/26/23 at 1612, For 1 dose New Bag 01/26/2023 4:19 PM CDT 1,000 mL 1000 mL/hr documented in this encounter Discontinued Medications Medication Sig Discontinue Reason Start Date End Da te lidocaine viscous (XYLOCAINE) 2 % solution Take 5-10 mL by mouth every 4 (four) hours as needed (sorethroat) Therapy completed 10/21/2021 01/26/2023 meclizine (ANTIVERT) 25 mg tablet Take 1 tablet (25 mg total) by mouth 3 (three) times a day as needed for dizziness Therapy completed 01/28/2022 01/26/2023 mupirocin (BACTROBAN) 2 % ointment mupirocin 2 % topical ointment Therapy completed 01/26/2023 nystatin powder Apply 1 application topically daily Therapy completed 11/09/2021 01/26/2023 ondansetron (ZOFRAN) 4 mg tablet Take 1 tablet (4 mg total) by mouth every 6 (six) hours Therapy completed 03/08/2022 01/26/2023 ondansetron ODT (ZOFRAN-ODT) 4 mg disintegrating tablet Take 1 tablet (4 mg total) by mouth every 8 (eight) hours as needed for nausea or vomiting Therapy completed 04/05/2022 01/26/2023 oxybutynin (DITROPAN) 5 mg tablet take 1 tablet by oral route every day Therapy completed 12/12/2013 01/26/[address] (PROTONIX) 40 mg EC tabletIndications:Treatm ent of Non-Bleeding Gastric Disorder Take 1 tablet (40 mg total) by mouth 2 (two) times a day Therapy completed 09/14/2021 01/26/2023 documented as of this encounter Active and Recently Administered Medications Times are shown in CDT. Scheduled Medication Order 01/24/2023 01/25/2023 01/26/2023 acetaminophen (TYLENOL) tablet 650 mg (COMPLETED) 650 mg, oral, Once, On Valeri 01/26/23 at 1809, For 1 dose 1837 (Given - Provid er: Michael Ruth, NURIS) ondansetron (ZOFRAN) injection 4 mg (COMPLETED) 4 mg, intravenous, Administer over 2 Minutes, Once, On Valeri 01/26/23 at 1612, For 1 dose 1620 (Given - Provid er: Bonnie Decker, NURIS) ondansetron (ZOFRAN) injection 4 mg (COMPLETED) 4 mg, intravenous, Administer over 2 Minutes, Once, On Valeri 01/26/23 at 1710, For 1 dose 1722 (Given - Provid er: Michael Ruth RN) sodium chloride 0.9% bolus 1,000 mL (COMPLETED) 1,000 mL, intravenous, at 1,000 mL/hr, Administer over 1 Hours, Once, On Valeri 01/26/23 at 1612, For 1 dose 1619 (New Bag - Prov ider: Bonnie Decker, NURIS)1920 (Stopped - Provider: Yris San, NURIS) PRN Medication Order 01/24/2023 01/25/2023 01/26/2023 ioversoL (OPTIRAY 350) injection 100 mL (COMPLETED) 100 mL, intravenous, Once in imaging, contrast, Starting on Valeri 01/26/23 at 1833, For 1 dose 1834 (Contrast Given - Provider: Miracle Gonsales, RT) documented in this encounter Care Teams Office Support Specialist Relationship Specialty Start Date End Date Justen Gale MD [address] [address] PCP - General 10/09/17 Liu Jerez MD Consulting Physician Gastroenterology 07/28/[address] [place] [address] [facility] [address] [place] [address] Consulting Physician Pulmonary Disease 08/03/17 Khris Arthur MD [address] [facility] [address] [place] [address] Medical Oncologist/Pulp Plant Supervisor Medical Oncology 10/23/[address] [place] [address] [facility] [address] [place] [address] Surgeon Orthopedic Surgery 10/23/17 [place] [address] [facility] [address] [place] [address] Consulting Physician Pain Management 10/23/[address] [place] [address] [facility] [address] [place] [address] Referring Physician General Surgery 01/26/18 [place] [address] [facility] [address] [place] [address] Consulting Physician Neurology 01/26/18 documented as of this encounter
--- OUTSIDE RECORDS SUMMARY | 2024-04-26 04:19 | XMS_ITS | Encounter Summary ---
Author Organization [facility] Address [address] [place] [address] Phone Care Team Providers Care Calender Roll Press Operator Name Role Phone Liu Jerez MD Unavailable Albert Corbin MD Unavailable Justen Gale MD Primary Care Provider Khris Arthur MD Unavailable [phone] Ko Melendez MD Unavailable [phone] John Paul Moyer MD Unavailable Annel Rod MD Unavailable Anali MARSHALL MD, Carlos M. Unavailable [phone] Encounter Details Date Type Department Care Team (Late st Contact Info) Description 05/23/2023 Orders Only [facility] Oncology [address] [facility] 7th [place] [address] [place] [address] Khris Arthur MD [address] [facility] [address] [place] [address] Chronic anticoagulation; History of pulmonary embolism; History [...] you attend chur ch or shinto services? Never 02/11/2022 Do you belong to any clubs o r organizations such as mu-ism groups, unions, fraternal or athletic groups, or [...] slept in a longterm (including now)? No 02/11/2022 Personal Safety Answer Date Recorded Have you ever been in or are you currently in a harmful physical or emotional relationship or is someone making you feel afraid or unsafe? 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 Gender Identity Not on file Sexual Orientation [...] by mouth daily 30 tablet 3 05/23/2023 12/27/2023 documented in this encounter Plan of [...] (20 mg total) by mouth daily Reorder 11/22/2022 05/23/2023 documented as of this encounter Care Teams Calender Roll Press Operator Relationship Specialty Start Date End Date Justen Gale MD [address] [facility] [address] [place] [address] PCP - General 10/09/17 Liu Jerez MD Consulting Physician Gastroenterology 07/28/17 [place] [address] [facility] [address] [place] [address] Consulting Physician Pulmonary Disease 08/03/17 Khris Arthur MD [address] [place] [address] [address] [place] [address] Medical Oncologist/Insole Channeler Medical Oncology 10/23/17 [place] [address] [facility] [address] [place] [address] Surgeon Orthopedic Surgery 10/23/17 [place] [address] [facility] [address] [place] [address] Consulting Physician Pain Management 10/23/17 [place] [address] [facility] [address] [place] [address] Referring Physician General Surgery 01/26/18 [place] [address] [facility] [address] [place] [address] Consulting Physician Neurology 01/26/18 documented as of this encounter
--- OUTSIDE RECORDS SUMMARY | 2024-04-26 04:19 | XMS_ITS | Encounter Summary ---
Author Organization [facility] Healthcare Address [address] [place] [address] Care Team Providers Care Hop Grower Name Role Phone Liu Jerez MD Unavailable [phone] Albert Corbin MD Unavailable [phone] Justen Gale MD Primary Care Provider Khris Arthur MD Unavailable [phone] Ko Melendez MD Unavailable John Paul Moyer MD Unavailable Annel Rod MD Unavailable Anali MARSHALL MD, Carlos M. Unavailable Reason for Referral * Consultation (Routine) - Authorized Specialty Diagnoses / Procedures Referred By Contkristina t Referred To Contact Diagnoses Allergy to drug Multiple drug allergies Teressa Wilkins MD [address] [place] [address] Phone: tel: fax: [facility] [address] [place] [address] Phone: tel: fax: Referral ID Status Reason Start Date Expiration Date Visits Requested Visits Authorized [id number] Authorized Specialty Services Required 08/18/2023 09/16/2024 99 99 Question Answer Please select the performing region: [facility] (All Locations) [[id number]] Please select the performing department: [facility] 2300 [[id number]] # of visits: 1 * Consultation (Routine) - Authorized Specialty Diagnoses / Procedures Referred By Elyssa benavides Referred To Contact Gastroenterology Diagnoses Abdominal pain Nausea and vomiting, unspecified vomiting type Type 2 diabetes mellitus without complication, with long-term current use of insulin (CMS/HCC) (HCC) Diabetic gastroparesis (CMS/HCC) (HCC) Teressa Wilkins MD [address] [place] [id number] Phone: tel: fax: [facility] (All Locations) Referral ID Status Reason Start Date Expiration Date Visits Requested Visits Authorized [id number] Authorized Specialty Services Required 08/18/2023 06/20/2025 99 99 Question Answer Process Instructions: THE AMBULATORY REFERRAL TO GASTROENTEROLOGY IS NOT AN ORDER FOR A PROCEDURE (I.E. EGD, COLONOSCOPY.) USE THE DIRECT SCHEDULING CASE REQUEST ORDER (GI50) IF THE PATIENT REQUIRES A PROCEDURE TO BE PERFORMED. Please select the performing region: [facility] (All Locations) [[id number]] # of visits: 1 Comments Diabetic gastroparesis suspected Reason for Visit * Reason Comments Abdominal Pain Nausea Diarrhea * Auth/Cert Specialty Diagnoses / Procedures Referred By Elyssa benavides Referred To Contact Diagnoses Abdominal pain Procedures NA Referral ID Status Reason Start Date Expiration Date Visits Re quested Visits Authorized [id number] 1 1 Encounter Details Date Type Department Care Team (Latest Contact Info) Description 08/14/2023 2:32 PM CDT - 08/18/2023 1:15 PM CDT Hospital Encounter [facility] 4 Med Surg [address] [place] [address] TelemaqPhilippe montero MD [address] [place] [address] [place] [address] Teressa Wilkins MD [facility] [place] [address] Abdominal pain (Primary Dx); Nausea and vomiting, unspecified vomiting type; Allergy to drug; Type 2 diabetes mellitus without complication, with long-term current use of insulin (CMS/HCC) (HCC); Diabetic gastroparesis (CMS/HCC) (HCC); Multiple drug allergies Discharge Disposition: Discharge to home or self care Social History Tobacco Use Types Packs/Day Years Used Date Smoking Tobacco: Former Smokeless Tobacco: Never Comments:remote tobacco use Alcohol Use Standard Drinks/Week Comments No 0 (1 standard drink = 0.6 oz pur e alcohol) [facility] Utilities Answer Date Recorded In the past 12 months has [employer], gas, oil, or water [employer] threatened to shut off services in your [...] you attend chur ch or sabianist services? Patient unable to answer 08/15/2023 Do you belong to any clubs o r organizations such as pentecostalism groups, unions, fraternal or athletic groups, or [...] making you feel afraid or unsafe? Denies 08/14/2023 Comments No Sex and Gender Information Value Date Recorded Sex Assigned at Not on file Legal Sex Female 12:24 AM [employer] Gender Identity Not on file Sexual Orientation Not on file documented as of this encounter Last Filed Vital Signs Vital Sign Reading Time Taken Comments Blood Pressure 148/87 08/18/2023 11:37 AM CDT Pulse 73 08/18/2023 11:37 AM CDT Temperature 36.6 ??C (97.9 ??F) 08/18/2023 1 1:37 AM CDT Respiratory Rate 18 08/18/2023 7:43 AM CDT Oxygen Saturation 95% 08/18/2023 11: 37 AM CDT Inhaled Oxygen Concentration - - Weight 125.6 kg (276 lb 14.4 oz) 08/14/2023 8:13 PM CDT Height 154.9 cm (5' 1 ) 08/14/2023 8:13 PM CDT Body Mass Index 52.32 08/14/2023 8:13 PM CDT documented in this encounter Discharge Summaries * Teressa Wilkins MD - 08/18/2023 12:16 PM CDT Inpatient Discharge Summary Patient Name - Karly Marques Patient Age - 68 yrs Patient - [id number] [facility] - [id number] Document Creation Date: 08/18/2023 Admitting Provider, MD: Philippe Mcguire MD Discharge Provider, MD: Teressa Wilkins MD Primary Care Physician at Discharge: Justen Gale MD [phone] Admission Date: 08/14/2023 Discharge Date/time: Admission Location: [facility] LOS - LOS: 4 days DETAILS OF HOSPITAL STAY Hospital Problems/Diagnoses Principal Problem: Abdominal pain Active Problems: Restless legs syndrome Acute cystitis without hematuria History of pulmonary embolism Hypertension Uncontrolled type 2 diabetes mellitus with hyperglycemia, with long-term current use of insulin (HCC) Breast cancer (HCC) Reason for Hospitalization: 68 y.o. female patient with a PMHx significant for but not limited to recurrent UTIs, breast cancer, CHF, depression, diabetes mellitus, PE presents to the ED with a chiefcomplaint of periumbilical abdominal pain Pertinent labs show: CMP shows glucose 290, otherwise unremarkable. CBC unremarkable. UA shows 3+ glucose, trace blood, 2+ leukocytes, 21-50 WBCs, 11-20 squamous epithelial cells, trace bacteria, present mucous. Urine culture pending Radiology results show: CT abdomen and pelvis shows: No acute findings. Water density right renal lesion which could represent a cyst Colonic diverticula without acute diverticulitis Previous ventral abdominal wall hernia repair with mesh placement CXR shows: Mild peribronchial inflammatory changes versus vascular congestion Medications given in ED: Fosfomycin 3 g p.o. Dilaudid 0.5 mg IV x2 Dilaudid 1 mg IV x1 Hospital Course: Was admitted with severe abdominal pain associated nausea and vomiting. CT of the abdomen and Pepcid did not reveal acute findings. Patient's abdominal pain was likely multifactorial secondary to underlying diabetic gastroparesis, Mounjaro use and acute cystitis. Due to patient's multiple antibiotic allergies, she was started on fosfomycin once in 3 days for 3 doses. She was seen by id consult. Urine culture grew E coli. Patient's urinary symptoms resolved. Abdominal pain improved and she was started on a diet. Patient tolerated diet. She was cleared to be discharged by ID consult. We have advised the patient follow-up with GI for further testing/management of diabetic gastroparesis. A referral was given to GI. Also advised to follow-up with allergy due to have multiple allergies to multiple antibiotics and other medications. A referral was given. Patient will be discharged to follow-up with primary doctor, Endocrinology, GI and allergy as outpatient. Her medication Mounjaro was discontinued on discharge. Discharge Details Physical Exam at Discharge: Discharge Condition: stable Pulse: 73 Resp: 18 BP: 148/87 Temp: 36.6 ??C (97.9 ??F) Weight: 125.6 kg (276 lb 14.4 oz) Pertinent Exam Findings at Discharge: Physical Exam Constitutional: Patient is awake alert, no acute distress. Skin: Warm, dry, no rashes in visible areas. Eyes: Equal, round and reactive, conjunctiva clear. ENT: Good dentition, oropharynx clear. Neck: Trachea midline, no masses or thyromegaly. Respiratory: Unlabored respirations, lungs clear to auscultation, no wheezes, no rhonchi, no crackles. Cardiovascular: Normal S1, S2, no murmurs. Abdomen: Soft, non tender, no obvious masses noted, bowel sounds + Neuro: No gross focal deficits. Psych: Alert and oriented x3, normal affect. Extremities: No edema. Musculoskeletal: No obvious joint deformities noted. Gait: Not assessed. Discharge Disposition: Discharge to home or self care Code Status at Discharge: Full Code Active Issues & Recommended Plan for Follow-up: Patient will benefit from gastric emptying studies and allergy testing as outpatient. Referrals were given on discharge. Allergies: Ceftriaxone, Ceftriaxone sodium, Cephalosporins, Lorazepam, Adhesive, Amlodipine besylate, Ciprofloxacin, Latex, Levofloxacin, Lisinopril, Meropenem, Other, Piperacillin-tazobactam, Metoclopramide hcl, Reslizumab, Bactrim [sulfamethoxazole-trimethoprim], Ketorolac, Macrobid [nitrofurantoin], Metoclopramide, Oxycodone, Pregabalin, and Trazodone Discharge Medications: Your medication list START taking these medications Instructions Last Dose Given Next Dose Due fosfomycin 3 gram packet Commonly known as: MONUROL Start taking on: August 19, 2023 3 g, oral, Once CHANGE how you take these medications Instructions Last Dose Given Next Dose Due insulin lispro 100 unit/mL vial for injection Commonly known as: HumaLOG, ADMELOG What changed: how much to take Another medication with the same name was removed. Continue taking this medication, and follow the directions you see here. 12 Units, subcutaneous, 3 times daily before meals CONTINUE taking these medications Instructions Last Dose Given Next Dose Due BD Ultra-Fine Short Pen Needle 31 gauge x 5/16 needle Generic drug: pen needle, diabetic USE 6 TIMES DAILY DIRECTED exemestane 25 mg tablet Doctor's comments: To replace lost bottle of medicine Commonly known as: AROMASIN 25 mg, oral, Nightly hydroCHLOROthiazide 12.5 mg capsule Commonly known as: MICROZIDE 12.5 mg, oral, Daily HYDROcodone-acetaminophen 7.5-325 mg per tablet Commonly known as: NORCO 1 tablet, oral, Every 6 hours hydrOXYzine 10 mg tablet Commonly known as: ATARAX 10 mg, oral, 2 times daily PRN insulin glargine 100 unit/mL vial for injection Commonly known as: LANT, SEMGLEE 32 Units, subcutaneous, Daily, Takes in the morning methenamine 1 gram tablet Commonly known as: HIPREX 1,000 mg, oral, 2 times daily methocarbamoL 500 mg tablet Commonly known as: ROBAXIN 500 mg, oral, 2 times daily naloxone 4 mg/actuation spray,non-aerosol Commonly known as: NARCAN OneTouch Ultra Test strip Generic drug: blood glucose diagnostic 4 times daily oxyBUTYnin XL 10 mg 24 hr tablet Commonly known as: DITROPAN-XL TAKE 1 TABLET BY MOUTH EVERY DAY FOR OVERACTIVE BLADDER rivaroxaban 20 mg tablet Commonly known as: Xarelto 20 mg, oral, Daily rOPINIRole 5 mg tablet Commonly known as: REQUIP 5 mg, oral, Nightly, Taken at 2100 STOP taking these medications amitriptyline 25 mg tablet Commonly known as: ELAVIL ASK your doctor about these medications Instructions Last Dose Given Next Dose Due albuterol HFA 90 mcg/actuation inhaler Commonly known as: PROVENTIL HFA,VENTOLIN HFA,PROAIR HFA INHALE 2 PUFFS INTO LUNGS BY MOUTH EVERY 4 HOURS NEEDED FOR WHEEZING OR SHORTNESS OF BREATH Where to Get Your Medications These medications were sent to [id number] - [place], [place] - [address], [facility] [id number] fosfomycin 3 gram packet methenamine 1 gram tablet Information about where to get these medications is not yet available Ask your nurse or doctor about these medications insulin glargine 100 unit/mL vial for injection Time Spent in Discharge Process: I have spent 42 minutes on discharge planning activities. Time spent was on Coordination of care and parent/patient education Test Results Pending at Discharge (If Blank, None Found): Pending Labs Order Current Status Magnesium In process Blood culture Blood Preliminary result Blood culture Blood Preliminary result Operative Procedures Performed (If Blank, None Found): Outpatient Follow-Up: Contact Information for Follow-ups Justen Gale MD Specialty: Family Medicine Relationship: PCP - General [address] [address] Next Steps: Follow up in 1 week(s) [facility] (All Locations) Next Steps: Follow up Comments: Diabetic gastroparesis suspected Questions: Process Instructions: THE AMBULATORY REFERRAL TO GASTROENTEROLOGY IS NOT AN ORDER FOR A PROCEDURE (I.E. EGD, COLONOSCOPY.) USE THE DIRECT SCHEDULING CASE REQUEST ORDER (GI50) IF THE PATIENT REQUIRES A PROCEDURE TO BE PERFORMED. Please select the performing region: [facility] (All Locations) # of visits: 1 Referral Status: Pending Authorization [facility] (All Locations) Next Steps: Follow up Questions: Please select the performing region: [facility] (All Locations) Please select the performing department: [facility] 2300 # of visits: 1 Referral Status: Pending Authorization Please schedule an appointment with the following provider(s): Justen Gale MD [address] [facility] [address] [address] Follow up in 1 week(s) [facility] (All Locations) [facility] (All Locations) ANCILLARY INFORMATION Other Procedures & Diagnostic Tests: No results found. Recent Labs: Recent Labs Lab Units 08/17/23 0724 08/16/23 0448 08/15/23 0538 WBC K/cumm 7.2 7.1 7.0 HEMOGLOBIN g/dL 12.2 11.9 11.7* HEMATOCRIT % 39.1 38.1 36.9 PLATELETS K/cumm 242 236 215 Recent Labs Lab Units 08/17/23 0724 08/16/23 0448 08/15/23 0538 WBC K/cumm 7.2 7.1 7.0 HEMOGLOBIN g/dL 12.2 11.9 11.7* HEMATOCRIT % 39.1 38.1 36.9 PLATELETS K/cumm 242 236 215 NEUTROS PCT % 53.6 52.3 57.3 LYMPHS PCT % 32.4 33.7 30.2 MONOS PCT % 8.9 8.3 7.6 EOS PCT % 4.5 5.1 4.4 Recent Labs Lab Units 08/18/23 1140 08/17/23 0839 08/17/23 0724 08/16/23 0828 08/16/23 0448 08/15/23 0912 08/15/23 0538 08/14/23 2047 08/14/23 1737 08/14/23 1220 SODIUM mmol/L -- -- 139 -- 137 -- 140 -- -- 137 POTASSIUM PLASMA mmol/L -- -- 3.8 -- 3.7 -- 3.6 -- -- 4.2 CHLORIDE mmol/L -- -- 101 -- 102 -- 105 -- -- 99 CO2 mmol/L -- -- 29 -- 26 -- 26 -- -- 26 BUN SERUM mg/dL -- -- 7 -- 8 -- 11 -- -- 13 CREATININE mg/dL -- -- 0.50* -- 0.50* -- 0.50* -- -- 0.60 [id number] mL/min/1.73 m2 -- -- >90 -- >90 -- >90 -- -- >90 GLUCOSE mg/dL -- -- 141 -- 137 -- 157 -- -- 290* POC GLUCOSE MONITOR mg/dL 210* < > -- < > -- < > -- -- < > -- CALCIUM mg/dL -- -- 9.2 -- 8.6 -- 8.3* -- -- 10.1 ALBUMIN g/dL -- -- -- -- -- -- -- -- -- 4.1 PHOSPHORUS PLASMA mg/dL -- -- -- -- -- -- -- 3.0 -- -- < > = values in this interval not displayed. Recent Labs Lab Units 08/18/23 1140 08/18/23 0820 08/17/23 2050 08/17/23 0839 08/17/23 0724 08/16/23 0828 08/16/23 0448 08/15/23 0912 08/15/23 0538 08/14/23 1737 08/14/23 1220 SODIUM mmol/L -- -- -- -- 139 -- 137 -- 140 -- 137 POTASSIUM PLASMA mmol/L -- -- -- -- 3.8 -- 3.7 -- 3.6 -- 4.2 CHLORIDE mmol/L -- -- -- -- 101 -- 102 -- 105 -- 99 CO2 mmol/L -- -- -- -- 29 -- 26 -- 26 -- 26 ANIONGAP mmol/L -- -- -- -- 9 -- 9 -- 9 -- 12 GLUCOSE mg/dL -- -- -- -- 141 -- 137 -- 157 -- 290* POC GLUCOSE MONITOR mg/dL 210* 163 151 < > -- < > -- < > -- < > -- BUN SERUM mg/dL -- -- -- -- 7 -- 8 -- 11 -- 13 CREATININE mg/dL -- -- -- -- 0.50* -- 0.50* -- 0.50* -- 0.60 CALCIUM mg/dL -- -- -- -- 9.2 -- 8.6 -- 8.3* -- 10.1 ALBUMIN g/dL -- -- -- -- -- -- -- -- -- -- 4.1 ALK PHOS Units/L -- -- -- -- -- -- -- -- -- -- 86 ALT Units/L -- -- -- -- -- -- -- -- -- -- 23 AST Units/L -- -- -- -- -- -- -- -- -- -- 21 BILIRUBIN TOTAL mg/dL -- -- -- -- -- -- -- -- -- -- 0.7 < > = values in this interval not displayed. Recent Labs Lab Units 08/14/23 1220 ALK PHOS Units/L 86 BILIRUBIN TOTAL mg/dL 0.7 TOTAL PROTEIN g/dL 8.7* ALT Units/L 23 AST Units/L 21 Recent Labs Lab Units 08/15/23 0538 08/14/232046 MAGNESIUM mg/dL 1.3* 1.3* Recent Labs Lab Units 08/14/232046 PROTIME (PT) sec 14.1 INR 1.1 APTT sec 29 Lab Results Component Value Date GLUCOSE 210 (H) 08/18/2023 GLUCOSE 163 08/18/2023 GLUCOSE 151 08/17/2023 Implant: Implants No active implants to display in this view. General Precautions (If Blank, None Found): Isolation Status: No active isolations Nutritional Status and in-house recommendations: Dietary Orders (From admission, onward) Start Ordered 08/16/23 0852 Adult Diet Restricted; 4 CHO/Meal; Yes, patient is receiving insulin Diet effective now Question Answer Comment (MHB/MHE) Diet type Restricted Diabetic: 4 CHO/Meal Patient receiving insulin: Yes, patient is receiving insulin 08/16/23 0851 08/14/23 2100 Bedtime snack At bedtime Comments: If bedtime BG is less than 100mg/dl, give patient a 15 gram carbohydrate snack. 08/14/23 1844 Anticoagulation Indication: INR: 08/14/2023: 1.1 Warfarin Administrations (last 168 hours) None Oxygen Status: O2 Therapy for the past 12 hrs: O2 Therapy 04/26/24 1137 None (Room air) 08/18/23 0743 None (Room air) Wound Care Instructions Active LDAs (If Blank, None Found): Peripheral IV 08/14/23 20 G Posterior;Right Hand (Active) Placement Date/Time: 08/14/23 1220 Type: Angiocath Size (Gauge): 20 G Location Orientation: Posterior;Right Location: Hand Site Prep: Chlorhexidine Local Anesthetic: None Technique: Anatomical landmarks Inserted by: Ousmane Souza RN Insertion at... Patient Emergency Contact: Primary Emergency Contact: Jimmie Marques, Immunization Status at Discharge Immunization History Administered Date(s) Administered Influenza, Quadrivalent, Split, Intramuscular 02/11/2015, 02/06/2017 Influenza, Quadrivalent, Split, Preservative Free, Intramuscular 02/14/2017, 01/24/2018, 02/25/2019, 01/18/2020, 05/04/2021, 01/03/2022 Influenza, Trivalent, Intramuscular 05/07/2013, 03/07/2014, 01/23/2016, 02/03/2020 Influenza, Unspecified 05/07/2013, 03/07/2014, 01/23/2016 Lay (J&J) SARS-CoV-2 Vaccination 06/29/2020 Tdap 02/23/2016 Teressa Gonzales MD documented in this encounter Discharge Instructions * Attachments The following attachments cannot be sent through Care Everywhere. * Chronic Abdominal Pain (AfterCare(R) Instructions(ER/ED)) (Congolese) documented in this encounter Medications at Time of Discharge albuterol HFA (PROVENTIL HFA,VENTOLIN HFA,PROAIR HFA) 90 mcg/actuation inhaler Inhale 2 puffs every 6 (six) hours as needed for wheezing or shortness of breath 04/19/2021 BD Ultra-Fine Short Pen Needle 31 gauge x 5/16 needle USE 6 TIMES DAILY DIRECTED 06/24/2021 blood glucose diagnostic ([employer] Ultra Test) strip 4 (four) times a day 02/01/2021 exemestane (AROMASIN) 25 mg tabletIndications :Malignant neoplasm [...] 08/18/2023 naloxone (NARCAN) 4 mg/actuation spray,non-aerosol 05/13/2021 oxyBUTYnin XL (DITROPAN XL) 15 mg 24 hr tablet Take 1 tablet (15 mg total) by mouth daily 06/28/2022 rOPINIRole (REQUIP) 5 mg tablet Take 1 tablet (5 mg total) by mouth nightly Taken at 2100 fosfomycin (MONUROL) 3 gram packetIndications :Urinary Tract/Genitourina ry Infection Take 3 g by mouth once for 1 dose 3 g 08/19/2023 4 methenamine (HIPREX) 1 gram tablet Take 1 tablet (1,000 mg total) by mouth 2 (two) times a day 60 tablet 1 08/18/2023 4 hydroCHLOROthiazi de (MICROZIDE) 12.5 mg capsule [...] 7 days 14 tablet 09/14/2022 4 insulin lispro (HumaLOG) 100 unit/mL injection Inject 12 Units under the skin 3 (three) times a day before meals. 01/26/2018 09/05/202 4 methocarbamoL (ROBAXIN) 500 mg tablet Take 1 tablet (500 mg total) by mouth 2 (two) times a day 6 tablet 02/03/2023 4 rivaroxaban (Xarelto) 20 mg tabletIndications :Chronic [...] Refills Last Filled Start Date End Date insulin glargine 100 unit/mL vial for injection Inject 32 Units under the skin daily Takes in the morning 08/18/2023 methenamine (HIPREX) 1 gram tablet Take 1 tablet (1,000 mg total) by mouth 2 (two) times a day 60 tablet 1 08/18/2023 4 fosfomycin (MONUROL) 3 gram packetIndications: Urinary Tract/Genitourinar y Infection Take 3 g by mouth once for 1 dose 3 g 08/19/2023 4 documented in this encounter Discharge Disposition Disposition Code Departure Means Destination Comment s Discharge to home or self care documented in this encounter Progress Notes * Jimmie Su PTA - 08/17/2023 3:34 PM CDT Physical Therapy 08/17/23 1534 PT Last Visit Session Type Treatment PT Received On 08/17/23 Safe Environment Patient found in supine;Arm band checked;Session completed bedside Subjective Agreeable to Therapy Family/Caregiver Present No Precautions Precautions Bed/Chair Alarm;Fall risk Pain Assessment Pain Assessment 0-10 Pain Score 6 Patient's Stated Pain Goal No pain Pain Type Acute pain Pain Location Abdomen Pain Orientation Mid;Lower Pain Frequency Constant/continuous Pain Onset Ongoing Cognition Arousal/Alertness Alert Orientation Oriented X4 (person, place, time, situation) Following Commands Follows all commands and directions without difficulty Bed Mobility Bed Mobility Yes Bed Mobility 1 Bed Mobility From 1 Supine;Rolling left Bed Mobility Type 1 To Bed Mobility to 1 Edge of bed Level of Assistance 1 Modified Independent Bed Mobility 2 Bed Mobility From 2 Edge of bed;Rolling right Bed Mobility Type 2 To Bed Mobility to 2 Supine Level of Assistance 2 Modified Independent Bed Mobility Comments 2 Pt performed bed mobility transfers well w/no assistance required from staff. Transfer 1 Transfer From 1 Bed;Sit Transfer Type 1 To and from Transfer to 1 Stand Technique 1 Sit to stand;Stand to sit Transfer Device 1 Wheeled walker Transfer Level of Assistance 1 Contact Guard Assist;Minimal verbal cues Trials/Comments 1 Pt performed good jho-cqacl-fam transfers. Ambulation Functional Ambulation Category 2 Ambulation Yes Ambulation 1 Distance (ft) 1 80 Surface 1 Level tile Device 1 Standard walker Assistance 1 Contact Guard Assist Gait: Requires assist with 1 Maintaining balance Gait: Requires verbal cues to 1 Use assistive device safely;Improve upright posture;Increase step length;Increase base of support Gait Deviations 1 Grace - decreased;Step length - decreased;Posture - flexed Quality of Gait 1 Good Ambulation Comments 1 Pt ambulated well w/std walker. No LOB noted. Will increase distances as pt is able to tolerate. Safe Environment End of Therapy Session Safe Environment End of Therapy Session Patient left supine in bed;Bed alarm in place and activated;RN notified;Call light within reach;Overbed table within reach;Bed in lowest position with wheels locked;Bed rails up per protocol Recommendation/Plan PT Recommendation/Plan Home with intermittent assist Progress during current admission Progressing toward goals Multi-Disciplinary Problems (from Physical Therapy) Active Problems Problem: Mobility Start Date: 08/15/23 Goal Start Date Expected End Date End Date LTG - Patient will demonstrate functional mobility with the following level of assist: 08/15/23 08/29/23 -- Goal Details: Pt will transfer and ambulate w walker or cane, 100 feet, sba of 1. Progressing. Educated the patient to the role of physical therapy, plan of care, goals of therapy, rationale forprogressing mobility. Patient was left with all needs met and equipment intact. Mobility and ADL status posted at bedsideand within medical record. * Teressa Wilkins MD - 08/17/2023 1:43 PM CDT Images from the original note were not included. General Medicine Daily Progress SUBJECTIVE Patient is seen in follow up of abdominal pain, acute cystitis with multiple antibiotic allergies, diabetes mellitus with hyperglycemia, history of breast cancer, primary hypertension, history of pulmonary embolism and other medical problems listed in assessment and plan Patient seen and examined at bedside. Patient is still having abdominal pain. She did not have further diarrheal episodes. She is still feeling nauseous, but did not vomit. She has a very poor appetite. Dysuria and frequency have resolved. She is remaining afebrile. Patient reported having a knot like feeling in her left calf area. She also reported she has a previous history of DVT. OBJECTIVE Vitals: 24hr Min/Max: Temp Min: 36.5 ??C (97.7 ??F) Max: 37.1 ??C (98.8 ??F) Pulse Min: 69 Max: 82 BP Min: 128/83 Max: 153/81 Resp Min: 18 Max: 18 SpO2 Min: 92 % Max: 98 % Most Recent : Vitals: 08/17/23 1128 BP: 138/78 Pulse: 73 Resp: Temp: 37.1 ??C (98.8 ??F) SpO2: 98% I/O last 2 completed shifts: In: 1320 [P.O.:1320] Out: - I/O this shift: In: 360 [P.O.:360] Out: - O2 Therapy for the past 12 hrs: O2 Therapy 08/17/23 1128 None (Room air) 08/17/23 0823 None (Room air) Physical Exam: Vitals reviewed Constitutional: NAD, comfortable, in bed Eyes: anicteric, vision grossly intact, glasses ENT: MMM Lungs: Normal depth and effort of breathing, on RA Heart: Regular, no murmur, no ankle edema Abd: +BS, Non Tender, Non distended : no indwelling bragg catheter Neuro: No new deficits appreciated Musculoskeletal: ROM grossly intact Skin: warm dry Psychiatric: alert, oriented Lab/Current Medication Review: Recent Results (from the past 24 hour(s)) POCT glucose Collection Time: 08/16/23 4:57 PM Result Value Ref Range Glucose, POC 151 70 - 199 mg/dL POCT glucose Collection Time: 08/16/23 7:53 PM Result Value Ref Range Glucose, POC 168 70 - 199 mg/dL Glucose comment 1 Use This Result Glucose comment 2 RN/MD Notified Basic metabolic panel Collection Time: 08/17/23 7:24 AM Result Value Ref Range Sodium 139 135 - 145 mmol/L Potassium, pl 3.8 3.3 - 4.9 mmol/L Chloride 101 97 - 110 mmol/L CO2 29 22 - 32 mmol/L Anion gap 9 2 - 15 mmol/L BUN 7 6 - 25 mg/dL Creatinine 0.50 (L) 0.60 - 1.10 mg/dL Glucose 141 70 - 199 mg/dL Calcium 9.2 8.5 - 10.3 mg/dL CBC with auto differential Collection Time: 08/17/23 7:24 AM Result Value Ref Range WBC 7.2 3.8 - 9.9 K/cumm Hgb 12.2 11.9 - 15.5 g/dL Hct 39.1 35.6 - 45.5 % Plt 242 150 - 400 K/cumm MPV 9.9 9.1 - 12.3 fL RBC 4.29 3.90 - 5.20 M/cumm MCV 91.1 81.3 - 96.4 fL MCH 28.4 27.1 - 33.3 pg MCHC 31.2 (L) 32.3 - 35.7 g/dL RDW CV 13.4 11.1 - 14.9 % RDW SD 45.2 35.7 - 48.1 fL NRBC abs 0.00 0.00 - 0.01 K/cumm Differential, auto Collection Time: 08/17/23 7:24 AM Result Value Ref Range Neutrophil abs 3.9 1.5 - 6.5 K/cumm Imm gran abs 0.0 0.0 - 0.1 K/cumm Lymphocyte abs 2.3 0.8 - 3.3 K/cumm Monocyte abs 0.6 0.2 - 0.8 K/cumm Eosinophil abs 0.3 0.0 - 0.5 K/cumm Basophil abs 0.0 0.0 - 0.1 K/cumm Neutrophil pct 53.6 % Imm gran pct 0.3 % Lymphocyte pct 32.4 % Monocyte pct 8.9 % Eosinophil pct 4.5 % Basophil pct 0.3 % eGFR Collection Time: 08/17/23 7:24 AM Result Value Ref Range eGFR >90 >=60 mL/min/1.73 m2 POCT glucose Collection Time: 08/17/23 8:39 AM Result Value Ref Range Glucose, POC 141 70 - 199 mg/dL POCT glucose Collection Time: 08/17/23 11:59 AM Result Value Ref Range Glucose, POC 209 (H) 70 - 199 mg/dL XR Chest 1 Vw Portable Result Date: 08/14/2023 Narrative: EXAM DESCRIPTION: XR CHEST 1 VIEW REASON FOR STUDY: epigastric,chest pain Pt states mid abdominal pain since last night, increased epigastric pain after drinking water x today TECHNIQUE: Single-view COMPARISON: 05/11/2023 FINDINGS: Perihilar interstitial densities are somewhat more pronounced than previous and may represent peribronchial inflammatory changes with subtle vascular congestion not excluded but probably less likely. No dense consolidation, effusion or pneumothorax. IMPRESSION: Mild peribronchial inflammatory changes versus vascular congestion. THIS IS AN ELECTRONICALLY V ERIFIED FINAL REPORT 08/14/2023 4:09 PM - Electronically signed by Ryan Partida M.D. RB: LALA Report ID: [id number] Reading Location: [id number] CT Abdomen Pelvis W Contrast Result Date: 08/14/2023 Narrative: EXAM DESCRIPTION: CT ABDOMEN PELVIS W CONTRAST REASON FOR STUDY: Nausea/vomiting, Abdominal pain, acute, nonlocalized Patient endorses mid abdominal pain, nausea, vomiting and diarrhea since last night. Also complains of urinary symptoms. Patient states she has been taking Mounjaro x 4 weeks[address] TECHNIQUE: CT scan of the abdomen and pelvis performed with intravenous and without oral contrast using helical scanning technique with dynamic intravenous contrast injection. Reconstructed coronal and sagittal MPR images reviewed. All images stored on PACS. Automated exposure control was usedas a dose optimization technique for this examination. CONTRAST TYPE/DOSE: 100mL of IOVERSOL 350 MG IODINE/ML INTRAVENOUS SYRINGE injected via intravenous COMPARISON: CT abdomen and pelvis 02/03/2023REFERENCE: Per ACR white paper recommendations, unless otherwise specified no follow-up imaging is recommended for incidental renal and adrenal lesions per consensus recommendations based on imaging criteria. Further lab evaluation could be pursued based on clinical findings. FINDINGS: LOWER CHEST:No acute findings. Mitral annular calcifications. LIVER: Normal. GALLBLADDER: Absent. SPLEEN: Normal. PANCREAS: Normal. ADRENALS: Normal. KIDNEYS/URINARY TRACT: Symmetric urinary enhancement. Water density right renal lesion which should represent a cyst. No urolithiasis or hydronephrosis. GI: No bowel obstruction. Colonic diverticula without acute diverticulitis. Normal appendix. PERITONEUM: Nofree intraperitoneal air or free fluid. REPRODUCTIVE: Normal. VASCULATURE: No abdominal aortic aneurysm. MUSCULOSKELETAL: No acute skeletal abnormality. OTHER: Previous ventral abdominal wall hernia repair with mesh placement. No adjacent fluid collection. Stimulator device in the left flank with lead entering the posterior central canal in the lower thoracic spine with posterior element resections. IMPRESSION: No acute findings. Chronic changes as above. THIS IS AN ELECTRONICALLY VERIFIED FINAL REPORT 08/14/2023 2:29 PM - Electronically signed by David Carlton M.D. JR: D: 2:29 PM Report ID: [id number] Reading Location: [id number] VAS LEFT VENOUS DUPLEX LE Result Date: 07/27/2023 Narrative: A/P: Principal Problem: Abdominal pain Active Problems: Restless legs syndrome Acute cystitis without hematuria History of pulmonary embolism Hypertension Uncontrolled type 2 diabetes mellitus with hyperglycemia, with long-term current use of insulin (HCC) Breast cancer (HCC) Resolved Problems: No resolved hospital problems. Abdominal pain CT of the abdomen did not reveal any acute findings. Abdominal pain could be secondary to Mounjaro versus UTI. Mounjaro use can cause up to 20% nausea, vomiting and abdominal pain. We will start a diabetic diet and see if the patient tolerates. Advised her to have a dose of Zofran prior to eating. Unfortunately unable to tolerate Reglan for possible diabetic gastroparesis due to side effects. Advised the patient to discontinue Mounjaro to prevent possible side effects -pain control -monitor labs; CBC, CMP 08/16 Clinically improving Continue with symptomatic treatment Tentative discharge planning for tomorrow will continue to improve and is able to tolerate oral diet Acute cystitis without hematuria Patient does have symptoms such as dysuria, frequency and lower abdominal pain. No significant leukocytosis. CRP and ESR only very mildly elevated. Urine culture shows E coli that is resistant to ampicillin and ciprofloxacin in June of 2022. Patient is allergic to multiple antibiotics including cephalosporins, penicillins, fluoroquinolones, Bactrim and meropenem Patient was seen by ID consult, appreciate recommendations. Id has recommended 3 doses of fosfomycin. Urine culture has grown E coli, sensitivities to fosfomycin are not done however. It is sensitive to other antibiotics, however patient unable to tolerate due to side effects. 08/16 Currently remaining afebrile and hemodynamically stable. UTI symptoms have resolved Continue with fosfomycin to complete for 3 doses as recommended by ID Patient seen by ID consult, appreciate recommendations Diabetes mellitus with hyperglycemia -hold home insulin dosing Continue Lantus insulin 12 units daily Patient's blood sugars are currently well controlled Continue sliding scale -check blood glucose -hypoglycemic protocol -A1c 8.4 -may need to adjust insulin depending on FSBG readings 08/16 Blood sugar levels currently well controlled Continue with current insulin regimen Previous history of DVT Patient reports a knot like feeling in her left leg. We will order lower extremity Doppler of the left lower extremity to rule out DVT Currently she is on Xarelto Breast cancer -continue home Aromasin Primary Hypertension -BP 152/91 -continue home hydrochlorothiazide History of PE -continue home Xarelto RLS -continue home Requip Back pain -continue home Robaxin Code status: Full Code DVT prophylaxis: Xarelto PT/OT: Ordered Case discussed Press Operator Helper Bedside nurse Medical decision making complexity low Voice recognition software MModal Fluency Direct may have been used dictate and transcribe this document. Wood Cut Engraver variances may occur. Despite proofreading, typographical errors may occur. Teressa Gonzales MD 08/17/2023 1:43 PM * Ruth Hou - 08/17/2023 12:01 PM CDT Spiritual Care Note Winston Apodaca MCM.Div Hopes: pt discharging tomorrow. Pt has a rescue bulldog (8) years old she is looking forward to getting home to. Pt enjoys decorating and painting furniture. At the moment, she is painting a rocking chair for her daughter. 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 Pt thanked extruder operator vertical for visit. 08/17/23 1200 Time Spent Start Time 1145 Stop Time 1200 Time Calculation (min) 15 min Patient Spiritual Assessment Spirituality Assessed Yes Restoration Affiliation Baptist Active in Jewish Yes Place of Baptism [facility] Clinical Encounter Type Visited With Patient Response Type Routine visit Routine Visit Follow-up Reason for visit Support Outcomes and Progress Aligning care with patient's values Achieved Preserve dignity and respect Achieved Demonstrating care and respect Achieved Interventions Interventions Active listening * Genaro Coy MD - 08/17/2023 7:08 AM CDT Progress Note Infectious Diseases Chief complaint: UTI. Lower abdominal pain Subjective Improved abdominal pain. No fevers Objective Vitals: 08/16/23 2300 BP: 153/81 Pulse: 75 Resp: 18 Temp: 36.9 ??C (98.4 ??F) SpO2: 92% Constitutional: Alert, oriented x3. In no distress. Currently on CPAP. Eyes: Sclerae anicteric, no conjunctival erythema Lungs: Clear breath sounds, no crackles, no wheezes Heart: Regular rate and rhythm, no murmurs Abdomen: Bowel sounds present, soft, nontender Skin: Warm and dry, No rashes Extremities: No edema Neuro: No motor deficit Psych: No anxiety Current Medications: Current Facility-Administered Medications Medication Dose Route Frequency Provider Last Rate Last Admin acetaminophen (TYLENOL) tablet 650 mg 650 mg oral Q4H PRN Philippe Mcguire MD Carrier Fluids for Secondary Infusion - 0.9% Sodium Chloride 30 mL intravenous PRN Philippe Mcguire MD dextrose (GLUTOSE) 40 % gel 15 g 15 g oral Q15 Min PRN Philippe Mcguire MD Or dextrose (D10W) 10% bolus 250 mL 250 mL intravenous Q15 Min PRN Philippe Mcguire MD diphenhydrAMINE (BENADRYL) tab/cap 25 mg 25 mg oral QID PRN Teressa Wilkins MD 25 mg at 08/15/23 1014 exemestane (AROMASIN) 25mg tablet PATIENT OWN SUPPLY 25 mg oral Nightly Ruben Quiros LTye, STOCK LAYER glucagon injection 1 mg 1 mg intramuscular Q30 Min PRN Maynor, Philippe Cheney MD HYDROcodone-acetaminophen (NORCO) 5-325 mg per tablet 1 tablet 1 tablet oral Q4H PRN Telemaque, Philippe Cheney MD 1 tablet at 08/17/23 0457 HYDROmorphone (DILAUDID) injection 0.5 mg 0.5 mg intravenous Q4H PRN Noemiaqkylah, Philippe Cheney MD 0.5 mg at 08/16/23 1851 insulin glargine (LANTUS, SEMGLEE) 100 unit/mL injection 12 Units 12 Units subcutaneous QAM Teressa Wilkins MD 12 Units at 08/16/23 0823 insulin lispro (HumaLOG, ADMELOG) 100 unit/mL injection 0-4 Units 0-4 Units subcutaneous Nightly Philippe Mcguire MD insulin lispro (HumaLOG, ADMELOG) 100 unit/mL injection 0-5 Units 0-5 Units subcutaneous TID with meals Philippe Mcguire MD 1 Units at 08/16/23 1309 [Held by Provider] insulin lispro (HumaLOG, ADMELOG) 100 unit/mL injection 22 Units 22 Units subcutaneous TID with meals Ruben Quiros, STOCK LAYER methocarbamoL (ROBAXIN) tablet 500 mg 500 mg oral BID Philippe Mcguire MD 500 mg at 08/16/23 2130 morphine injection 2 mg 2 mg intravenous Q4H PRN Philippe Mcguire MD 2 mg at 08/17/23 0159 ondansetron (ZOFRAN) injection 4 mg 4 mg intravenous Once PRN Philippe Mcguire MD ondansetron ODT (ZOFRAN-ODT) disintegrating tablet 4 mg 4 mg oral Q6H PRN Philippe Mcguire MD 4 mg at 08/15/23 1153 Or ondansetron (ZOFRAN) injection 4 mg 4 mg intravenous Q6H PRN Philippe Mcguire MD 4 mg at 08/16/23 1534 ondansetron ODT (ZOFRAN-ODT) disintegrating tablet 4 mg 4 mg oral Once PRN Philippe Mcguire MD ramelteon (ROZEREM) tablet 8 mg 8 mg oral Nightly PRN Philippe Mcguire MD rivaroxaban (XARELTO) tablet 20 mg 20 mg oral Daily Philippe Mcguire MD 20 mg at 823 rOPINIRole (REQUIP) tablet 5 mg 5 mg oral Nightly Philippe Mcguire MD 5 mg at 08/16/23 2131 senna-docusate (PERICOLACE) 8.6-50 mg per tablet 1 tablet 1 tablet oral BID Teressa Wilkins MD 1 tablet at 08/16/23 2130 sodium chloride 0.9% flush 0.5-20 mL 0.5-20 mL intra-catheter Q8H RODERICK Philippe Mcguire MD10 mL at 08/17/23 0457 sodium chloride 0.9% flush 0.5-20 mL 0.5-20 mL intra-catheter PRN Philippe Mcguire MD Allergies Allergen Reactions Ceftriaxone Anaphylaxis R Ceftriaxone [...] Use: Not At Risk (06/16/2023) Received from [facility] Health AUDIT-C Frequency of Alcohol Consumption: Never Average Number of Drinks: Patient does not drink Frequency of Binge Drinking: Never WBC 7.1. Creatinine of 0.5 Assessment/Plan 1. Urinary tract infection versus chronic non infectious cystitis. Remains afebrile with a normal white count. Urine culture showed pansensitive E coli. Currently on fosfomycin dose 2 of 3 doses. Abdominal pain and dysuria has improved. After completion of 3rd dose of fosfomycin may return to methenamine hippurate for chronic suppressive therapy. Okay for discharge with the 3rd dose of fosfomycin. Patient is to follow-up with urology. Will sign off. 2. Type 2 diabetes with blood sugars ranging between 131 to 169. Continue insulin Lantus and insulin sliding scale. 3. Hypertension stable blood pressure. 4. Multiple antibiotics allergy. Recommend follow-up with Allergy immunology especially for penicillin skin testing. Patient stated that she had tolerated Augmentin recently. Cephalosporin causes anaphylaxis. Ciprofloxacin causes rash. Bactrim causes itching Genaro Coy MD [facility] Infectious Disease [place] [facility] [phone] * Genaro Coy MD - 08/16/2023 3:49 PM CDT Progress Note Infectious Diseases Chief complaint: Lower abdominal pain. Pyuria Subjective Complaint pressure-like discomfort of the lower abdomen. No nausea or vomiting. Fever Objective Vitals: 08/16/23 1534 BP: 128/83 Pulse: 72 Resp: 18 Temp: 37.1 ??C (98.8 ??F) SpO2: 96% Constitutional: Alert, oriented x3. In no distress. Eyes: Sclerae anicteric, no conjunctival erythema Lungs: Clear breath sounds, no crackles, no wheezes Heart: Regular rate and rhythm, no murmurs Abdomen: Bowel sounds present, soft, nontender Skin: Warm and dry, No rashes Extremities: No edema Neuro: No motor deficit Psych: No anxiety Current Medications: Current Facility-Administered Medications Medication Dose Route Frequency Provider Last Rate Last Admin acetaminophen (TYLENOL) tablet 650 mg 650 mg oral Q4H PRN Philippe Mcguire MD Carrier Fluids for Secondary Infusion - 0.9% Sodium Chloride 30 mL intravenous PRN Philippe Mcguire MD dextrose (GLUTOSE) 40 % gel 15 g 15 g oral Q15 Min PRN Philippe Mcguire MD Or dextrose (D10W) 10% bolus 250 mL 250 mL intravenous Q15 Min PRN Philippe Mcguire MD diphenhydrAMINE (BENADRYL) tab/cap 25 mg 25 mg oral QID PRN Teressa Wilkins MD 25 mg at 08/15/23 1014 exemestane (AROMASIN) 25mg tablet PATIENT OWN SUPPLY 25 mg oral Nightly Ruben Quiros NP glucagon injection 1 mg 1 mg intramuscular Q30 Min PRN Philippe Mcguire MD HYDROcodone-acetaminophen (NORCO) 5-325 mg per tablet 1 tablet 1 tablet oral Q4H PRN Philippe Mcguire MD 1 tablet at 08/16/23 0453 HYDROmorphone (DILAUDID) injection 0.5 mg 0.5 mg intravenous Q4H PRN Philippe Mcguire MD 0.5 mg at 08/16/23 0823 insulin glargine (LANTUS, SEMGLEE) 100 unit/mL injection 12 Units 12 Units subcutaneous QAM Teressa Wilkins MD 12 Units at 08/16/23 0823 insulin lispro (HumaLOG, ADMELOG) 100 unit/mL injection 0-4 Units 0-4 Units subcutaneous Nightly Philippe Mcguire MD insulin lispro (HumaLOG, ADMELOG) 100 unit/mL injection 0-5 Units 0-5 Units subcutaneous TID with meals Philippe Mcguire MD 1 Units at 08/16/23 1309 [Held by Provider] insulin lispro (HumaLOG, ADMELOG) 100 unit/mL injection 22 Units 22 Units subcutaneous TID with meals Ruben Quiros NP methocarbamoL (ROBAXIN) tablet 500 mg 500 mg oral BID Noemiaqkylah, Philippe Cheney MD 500 mg at 08/16/23 0823 morphine injection 2 mg 2 mg intravenous Q4H PRN Maynor, Philippe Cheney MD 2 mg at 08/16/23 1534 ondansetron (ZOFRAN) injection 4 mg 4 mg intravenous Once PRN NoemiaqPhilippe montero MD ondansetron ODT (ZOFRAN-ODT) disintegrating tablet 4 mg 4 mg oral Q6H PRN Philippe Mcguire MD 4 mg at 08/15/23 1153 Or ondansetron (ZOFRAN) injection 4 mg 4 mg intravenous Q6H PRN Noemiaqkylah, Philippe Cheney MD 4 mg at 08/16/23 1534 ondansetron ODT (ZOFRAN-ODT) disintegrating tablet 4 mg 4 mg oral Once PRN Philippe Mcguire MD ramelteon (ROZEREM) tablet 8 mg 8 mg oral Nightly PRN Philippe Mcguire MD rivaroxaban (XARELTO) tablet 20 mg 20 mg oral Daily Philippe Mcguire MD 20 mg at 823 rOPINIRole (REQUIP) tablet 5 mg 5 mg oral Nightly NoemiaqPhilippe montero MD 5 mg at 08/15/23 2130 senna-docusate (PERICOLACE) 8.6-50 mg per tablet 1 tablet 1 tablet oral BID Teressa Wilkins MD 1 tablet at 08/16/23 0936 sodium chloride 0.9% flush 0.5-20 mL 0.5-20 mL intra-catheter Q8H RODERICK Philippe Mcguire MD10 mL at 08/16/23 0454 sodium chloride 0.9% flush 0.5-20 mL 0.5-20 mL intra-catheter PRN Telemaque, Philippe Cheney MD Allergies Allergen Reactions Ceftriaxone Anaphylaxis R Ceftriaxone [...] Use: Not At Risk (06/16/2023) Received from [facility] Health AUDIT-C Frequency of Alcohol Consumption: Never Average Number of Drinks: Patient does not drink Frequency of Binge Drinking: Never WBC count of 7. Creatinine of 0.5 Urine culture showed pansensitive E coli pansensitive only resistant to ciprofloxacin and ampicillin Assessment/Plan 1. Tract infection versus chronic cystitis. Patient has remained afebrile with a normal white count. Urine culture showed E coli pansensitive except for Cipro and ampicillin. Currently on fosfomycin day 2 of 3 doses. After completion of the fosfomycin patient need to be restarted on methenamine hippurate for chronic suppressive therapy. No further workup needed. Do not repeat urinalysis or culture after treatment. 2. Type 2 diabetes with blood sugars ranging between 131 to 169. Continue Lantus and insulin sliding scale. Hemoglobin A1c of 8.4. Tighter glycemic control recommended. 3. Hypertension stable blood pressure at 128/83. 4. Multiple antibiotics allergy. Cephalosporin causes anaphylaxis. Ciprofloxacin causes rash. Zosyncauses rash but has tolerated Augmentin recently. Bactrim causes itching. May consider outpatient referral to Allergy immunology Genaro Coy MD [facility] Infectious Disease [place] [facility] [phone] * Jimmie Su PTA - 08/16/2023 3:07 PM CDT Physical Therapy 08/16/23 1507 PT Last Visit Session Type Treatment Subjective Comment I'm not feeling well, and am having too much pain . PT Missed Visit Reason Patient declined (Will check back in AM.) * Teressa Wilkins MD - 08/16/2023 11:34 AM CDT Images from the original note were not included. General Medicine Daily Progress SUBJECTIVE Patient is seen in follow up of abdominal pain, acute cystitis with multiple antibiotic allergies, diabetes mellitus with hyperglycemia, history of breast cancer, primary hypertension, history of pulmonary embolism and other medical problems listed in assessment and plan Patient seen and examined at bedside. Patient is still having abdominal pain. She also feels nauseous and vomited couple of times. She has not tolerated clear liquid diet well, but says that she usually does not tolerate liquid diets that well. She also has a history of diabetic gastroparesis. Patient has had worsening of her restless leg syndrome symptoms with Reglan previously. She reports thather burning and dysuria symptoms have resolved. Has remained afebrile. OBJECTIVE Vitals: 24hr Min/Max: Temp Min: 36.6 ??C (97.9 ??F) Max: 36.7 ??C (98.1 ??F) Pulse Min: 65 Max: 81 BP Min: 122/84 Max: 146/86 Resp Min: 10 Max: 18 SpO2 Min: 94 % Max: 100 % Most Recent : Vitals: 08/16/23 1109 BP: 140/75 Pulse: 66 Resp: 17 Temp: 36.7 ??C (98.1 ??F) SpO2: 100% I/O last 2 completed shifts: In: 460 [P.O.:460] Out: 0 I/O this shift: In: 480 [P.O.:480] Out: - O2 Therapy for the past 12 hrs: O2 Therapy 08/16/23 1109 None (Room air) 08/16/23 0825 None (Room air) Physical Exam: Vitals reviewed Constitutional: NAD, comfortable, in bed Eyes: anicteric, vision grossly intact, glasses ENT: MMM Lungs: Normal depth and effort of breathing, on RA Heart: Regular, no murmur, no ankle edema Abd: +BS, Non Tender, Non distended : no indwelling bragg catheter Neuro: No new deficits appreciated Musculoskeletal: ROM grossly intact Skin: warm dry Psychiatric: alert, oriented Lab/Current Medication Review: Recent Results (from the past 24 hour(s)) POCT glucose Collection Time: 08/15/23 11:52 AM Result Value Ref Range Glucose, POC 182 70 - 199 mg/dL Glucose comment 1 Use This Result POCT glucose Collection Time: 08/15/23 4:13 PM Result Value Ref Range Glucose, POC 131 70 - 199 mg/dL Basic metabolic panel Collection Time: 08/16/23 4:48 AM Result Value Ref Range Sodium 137 135 - 145 mmol/L Potassium, pl 3.7 3.3 - 4.9 mmol/L Chloride 102 97 - 110 mmol/L CO2 26 22 - 32 mmol/L Anion gap 9 2 - 15 mmol/L BUN 8 6 - 25 mg/dL Creatinine 0.50 (L) 0.60 - 1.10 mg/dL Glucose 137 70 - 199 mg/dL Calcium 8.6 8.5 - 10.3 mg/dL CBC with auto differential Collection Time: 08/16/23 4:48 AM Result Value Ref Range WBC 7.1 3.8 - 9.9 K/cumm Hgb 11.9 11.9 - 15.5 g/dL Hct 38.1 35.6 - 45.5 % Plt 236 150 - 400 K/cumm MPV 9.9 9.1 - 12.3 fL RBC 4.20 3.90 - 5.20 M/cumm MCV 90.7 81.3 - 96.4 fL MCH 28.3 27.1 - 33.3 pg MCHC 31.2 (L) 32.3 - 35.7 g/dL RDW CV 13.4 11.1 - 14.9 % RDW SD 44.4 35.7 - 48.1 fL NRBC abs 0.00 0.00 - 0.01 K/cumm Differential, auto Collection Time: 08/16/23 4:48 AM Result Value Ref Range Neutrophil abs 3.7 1.5 - 6.5 K/cumm Imm gran abs 0.0 0.0 - 0.1 K/cumm Lymphocyte abs 2.4 0.8 - 3.3 K/cumm Monocyte abs 0.6 0.2 - 0.8 K/cumm Eosinophil abs 0.4 0.0 - 0.5 K/cumm Basophil abs 0.0 0.0 - 0.1 K/cumm Neutrophil pct 52.3 % Imm gran pct 0.3 % Lymphocyte pct 33.7 % Monocyte pct 8.3 % Eosinophil pct 5.1 % Basophil pct 0.3 % eGFR Collection Time: 08/16/23 4:48 AM Result Value Ref Range eGFR >90 >=60 mL/min/1.73 m2 POCT glucose Collection Time: 08/16/23 8:28 AM Result Value Ref Range Glucose, POC 144 70 - 199 mg/dL XR Chest 1 Vw Portable Result Date: 08/14/2023 Narrative: EXAM DESCRIPTION: XR CHEST 1 VIEW REASON FOR STUDY: epigastric,chest pain Pt states mid abdominal pain since last night, increased epigastric pain after drinking water x today TECHNIQUE: Single-view COMPARISON: 05/11/2023 FINDINGS: Perihilar interstitial densities are somewhat more pronounced than previous and may represent peribronchial inflammatory changes with subtle vascular congestion not excluded but probably less likely. No dense consolidation, effusion or pneumothorax. IMPRESSION: Mild peribronchial inflammatory changes versus vascular congestion. THIS IS AN ELECTRONICALLY V ERIFIED FINAL REPORT 08/14/2023 4:09 PM - Electronically signed by Ryan Partida M.D. RB: LALA Report ID: [id number] Reading Location: [id number] CT Abdomen Pelvis W Contrast Result Date: 08/14/2023 Narrative: EXAM DESCRIPTION: CT ABDOMEN PELVIS W CONTRAST REASON FOR STUDY: Nausea/vomiting, Abdominal pain, acute, nonlocalized Patient endorses mid abdominal pain, nausea, vomiting and diarrhea since last night. Also complains of urinary symptoms. Patient states she has been taking Mounjaro x 4 weeks. TECHNIQUE: CT scan of the abdomen and pelvis performed with intravenous and without oral contrast using helical scanning technique with dynamic intravenous contrast injection. Reconstructed coronal and sagittal MPR images reviewed. All images stored on PACS. Automated exposure control was usedas a dose optimization technique for this examination. CONTRAST TYPE/DOSE: 100mL of IOVERSOL 350 MG IODINE/ML INTRAVENOUS SYRINGE injected via intravenous COMPARISON: CT abdomen and pelvis 02/03/2023REFERENCE: Per ACR white paper recommendations, unless otherwise specified no follow-up imaging is recommended for incidental renal and adrenal lesions per consensus recommendations based on imaging criteria. Further lab evaluation could be pursued based on clinical findings. FINDINGS: LOWER CHEST:No acute findings. Mitral annular calcifications. LIVER: Normal. GALLBLADDER: Absent. SPLEEN: Normal. PANCREAS: Normal. ADRENALS: Normal. KIDNEYS/URINARY TRACT: Symmetric urinary enhancement. Water density right renal lesion which should represent a cyst. No urolithiasis or hydronephrosis. GI: No bowel obstruction. Colonic diverticula without acute diverticulitis. Normal appendix. PERITONEUM: No free intraperitoneal air or free fluid. REPRODUCTIVE: Normal. VASCULATURE: No abdominal aortic aneurysm. MUSCULOSKELETAL: No acute skeletal abnormality. OTHER: Previous ventral abdominal wall hernia repair with mesh placement. No adjacent fluid collection. Stimulator device in the left flank with lead entering the posterior central canal in the lower thoracic spine with posterior element resections. IMPRESSION: No acute findings. Chronic changes as above. THIS IS AN ELECTRONICALLY VERIFIED FINALREPORT 08/14/2023 2:29 PM - Electronically signed by David Carlton M.D. JR: D: 2:29 PM Report ID: [id number] Reading Location: [id number] VAS LEFT VENOUS DUPLEX LE Result Date: 07/27/2023 Narrative: A/P: Principal Problem: Abdominal pain Resolved Problems: No resolved hospital problems. Abdominal pain CT of the abdomen did not reveal any acute findings. Abdominal pain could be secondary to Mounjaro versus UTI. Mounjaro use can cause up to 20% nausea, vomiting and abdominal pain. We will start a diabetic diet and see if the patient tolerates. Advised her to have a dose of Zofran prior to eating. Unfortunately unable to tolerate Reglan for possible diabetic gastroparesis due to side effects. Advised the patient to discontinue Mounjaro to prevent possible side effects -pain control -monitor labs; CBC, CMP Acute cystitis without hematuria Patient does have symptoms such as dysuria, frequency and lower abdominal pain. No significant leukocytosis. CRP and ESR only very mildly elevated. Urine culture shows E coli that is resistant to ampicillin and ciprofloxacin in June of 2022. Patient is allergic to multiple antibiotics including cephalosporins, penicillins, fluoroquinolones, Bactrim and meropenem Patient was seen by ID consult, appreciate recommendations. Id has recommended 3 doses of fosfomycin. Urine culture has grown E coli, sensitivities to fosfomycin are not done however. It is sensitive to other antibiotics, however patient unable to tolerate due to side effects. Diabetes mellitus with hyperglycemia -hold home insulin dosing Continue Lantus insulin 12 units daily Patient's blood sugars are currently well controlled Continue sliding scale -check blood glucose -hypoglycemic protocol -A1c 8.4 -may need to adjust insulin depending on FSBG readings Breast cancer -continue home Aromasin Primary Hypertension -BP 152/91 -continue home hydrochlorothiazide History of PE -continue home Xarelto RLS -continue home Requip Back pain -continue home Robaxin Code status: Full Code DVT prophylaxis: Xarelto PT/OT: Ordered Case discussed Press Operator Helper Bedside nurse My total encounter time on 08/15/2023 was 36minutes which was spent in the activities documented inthe note. This includes the time spent prior to the visit and after the visit in direct care of thepatient. This time does not include the time spent in any separately reportable services. Voice recognition software MModal Fluency Direct may have been used dictate and transcribe this document. Wood Cut Eng[employer]ver variances may occur. Despite proofreading, typographical errors may occur. Teressa Gonzales MD 08/16/2023 11:34 AM * Heaven Lowery, OT - 08/15/2023 11:55 AM CDT Occupational Therapy Patient Name: Karly Marques Date of : 1955 Date of Service: 08/15/2023 08/15/23 1142 General Chart Reviewed Yes Session Type Evaluation (Room 416, on RA) OT Received On 08/15/23 Safe Environment Patient found sitting at edge of bed (with PT staff.) Additional Pertinent History Admit 08/14/23. 68 y.o. female presenting to the ED c/o periumbilical abdominal pain and N/V/D. Likely secondary to acute cystitis. PMHx: Recurrent UTIs, breast cancer, CHF, depression, diabetes mellitus, PE Family/Caregiver Present No Occupational Therapy-Patient Goal home at discharge Current Functional Status OT Functional Mobility Patient just walked in room with PT. Now sitting EOB dry heaving. See PT note. OT Self Care Patient just completed all toileting with PT staff - no concern with baseline ADLs. Daughter is also paid caregiver thru the state and assists with ADL/IADLs. OT Cognition Appears intact OT Communication Intact Home Living Type of Home House Home Layout One level;Basement (Daughter lives in basement and is paid caregiver) Plan Plan Discharge (Patient does not feel skilled OT indicated during acute hospitalization. Daughter assists with ADLs/IADLs as paid caregiver. No additional ADL/IADL concerns.) * Christian Mendes, Teressa Ordonez MD - 08/15/2023 11:28 AM CDT Images from the original note were not included. General Medicine Daily Progress SUBJECTIVE Patient is seen in follow up of abdominal pain, acute cystitis with multiple antibiotic allergies, diabetes mellitus with hyperglycemia, history of breast cancer, primary hypertension, history of pulmonary embolism and other medical problems listed in assessment and plan Patient seen and examined at bedside. Patient reports that he was on Mounjaro 5 weeks. Patient has not had previous side effects. She states that her abdominal bloating and distention has improved. She is still feeling nauseous, but did not vomit since admission. Loose stools also have improved. She is still having abdominal pain mainly in the lower and middle area. She also does have dysuria andincreased frequency. Patient reported that she was diagnosed with urine tract infection about 4-5 weeks ago and was treated with fosfomycin due to her multiple antibiotic allergies. Patient reports that her symptoms never went away completely after treating this UTI. She has a history of multiple antibiotic allergies and is awaiting to be seen by assembly lead person. OBJECTIVE Vitals: 24hr Min/Max: Temp Min: 36.5 ??C (97.7 ??F) Max: 36.9 ??C (98.4 ??F) Pulse Min: 72 Max: 91 BP Min: 120/69 Max: 166/96 Resp Min: 16 Max: 18 SpO2 Min: 94 % Max: 99 % Most Recent : Vitals: 08/15/23 1126 BP: 120/69 Pulse: 72 Resp: 18 Temp: 36.5 ??C (97.7 ??F) SpO2: 97% No intake/output data recorded. I/O this shift: In: 460 [P.O.:460] Out: - O2 Therapy for the past 12 hrs: O2 Therapy 08/15/23 0922 None (Room air) 08/15/23 0312 None (Room air) 08/14/23 2350 None (Room air) Physical Exam: Vitals reviewed Constitutional: NAD, comfortable, in bed Eyes: anicteric, vision grossly intact, glasses ENT: MMM Lungs: Normal depth and effort of breathing, on RA Heart: Regular, no murmur, no ankle edema Abd: +BS, Non Tender, Non distended : no indwelling bragg catheter Neuro: No new deficits appreciated Musculoskeletal: ROM grossly intact Skin: warm dry Psychiatric: alert, oriented Lab/Current Medication Review: Recent Results (from the past 24 hour(s)) CBC with auto differential Collection Time: 08/14/23 12:20 PM Result Value Ref Range WBC 8.3 3.8 - 9.9 K/cumm Hgb 14.1 11.9 - 15.5 g/dL Hct 43.3 35.6 - 45.5 % Plt 277 150 - 400 K/cumm MPV 9.9 9.1 - 12.3 fL RBC 4.94 3.90 - 5.20 M/cumm MCV 87.7 81.3 - 96.4 fL MCH 28.5 27.1 - 33.3 pg MCHC 32.6 32.3 - 35.7 g/dL RDW CV 13.4 11.1 - 14.9 % RDW SD 42.9 35.7 - 48.1 fL NRBC abs 0.00 0.00 - 0.01 K/cumm Comprehensive metabolic panel Collection Time: 08/14/23 12:20 PM Result Value Ref Range Sodium 137 135 - 145 mmol/L Potassium, pl 4.2 3.3 - 4.9 mmol/L Chloride 99 97 - 110 mmol/L CO2 26 22 - 32 mmol/L Anion gap 12 2 - 15 mmol/L BUN 13 6 - 25 mg/dL Creatinine 0.60 0.60 - 1.10 mg/dL Glucose 290 (H) 70 - 199 mg/dL Calcium 10.1 8.5 - 10.3 mg/dL Bilirubin, total 0.7 0.1 - 1.2 mg/dL Protein, pl 8.7 (H) 6.5 - 8.5 g/dL Albumin 4.1 3.5 - 5.0 g/dL Alk phos 86 40 - 130 Units/L ALT 23 7 - 45 Units/L AST 21 10 - 45 Units/L Lipase Collection Time: 08/14/23 12:20 PM Result Value Ref Range Lipase 20 10 - 99 Units/L Differential, auto Collection Time: 08/14/23 12:20 PM Result Value Ref Range Neutrophil abs 5.2 1.5 - 6.5 K/cumm Imm gran abs 0.0 0.0 - 0.1 K/cumm Lymphocyte abs 2.2 0.8 - 3.3 K/cumm Monocyte abs 0.6 0.2 - 0.8 K/cumm Eosinophil abs 0.3 0.0 - 0.5 K/cumm Basophil abs 0.0 0.0 - 0.1 K/cumm Neutrophil pct 62.2 % Imm gran pct 0.5 % Lymphocyte pct 26.4 % Monocyte pct 7.0 % Eosinophil pct 3.5 % Basophil pct 0.4 % eGFR Collection Time: 08/14/23 12:20 PM Result Value Ref Range eGFR >90 >=60 mL/min/1.73 m2 Urinalysis reflex to microscopic and culture Urine Collection Time: 08/14/23 12:30 PM Specimen: Urine Result Value Ref Range Color, ur Yellow Yellow Clarity, ur Clear Clear Specific gravity, ur 1.019 1.003 - 1.030 pH, urine 5.5 Protein, ur ql Negative Negative Glucose, ur ql 3+ (A) Negative Ketones, ur Negative Negative Bilirubin, ur Negative Negative Blood, ur Trace (A) Negative Urobilinogen, ur <2.0 <2.0 mg/dL Nitrite, ur Negative Negative Leukocyte esterase, ur 2+ (A) Negative UA reflex comment Reflex to microscopic UA will be performed. Urinalysis, microscopic only Collection Time: 08/14/23 12:30 PM Result Value Ref Range WBC, ur 21-50 (A) 0 - 5 /HPF RBC, ur 0-2 0 - 2 /HPF Epithelial cells, squamous, ur 11-20 (A) 0 - 5 /HPF Bacteria, ur Trace (A) Mucous, ur Present (A) Hyaline casts, ur 1-5 0 - 10 /LPF Culture Reflex Comment Reflex to urine culture will be performed. Urine culture Urine Collection Time: 08/14/23 12:30 PM Specimen: Urine Result Value Ref Range Report Preliminary Report: Culture results pending. POCT glucose Collection Time: 08/14/23 5:37 PM Result Value Ref Range Glucose, POC 181 70 - 199 mg/dL Sepsis Lactate w/ Reflex Collection Time: 08/14/23 5:49 PM Result Value Ref Range Sepsis Lactate 1.2 0.7 - 2.0 mmol/L POCT glucose Collection Time: 08/14/23 8:28 PM Result Value Ref Range Glucose, POC 143 70 - 199 mg/dL Glucose comment 1 Use This Result Glucose comment 2 RN/MD Notified Magnesium Collection Time: 08/14/23 8:47 PM Result Value Ref Range Magnesium 1.3 (L) 1.4 - 2.5 mg/dL Phosphorus Collection Time: 08/14/23 8:47 PM Result Value Ref Range Phosphorus, pl 3.0 2.3 - 4.5 mg/dL Lactate Collection Time: 08/14/23 8:47 PM Result Value Ref Range Lactate 1.1 0.7 - 2.0 mmol/L Erythrocyte sedimentation rate Collection Time: 08/14/23 8:47 PM Result Value Ref Range Erythrocyte sedimentation rate 55 (H) 1 - 30 mm/hr CRP (acute phase) Collection Time: 08/14/23 8:47 PM Result Value Ref Range CRP 15.5 (H) <=10.0 mg/L Lipid panel Collection Time: 08/14/23 8:47 PM Result Value Ref Range Cholesterol 176 30 - 199 mg/dL Triglycerides 121 <=149 mg/dL HDL 44 >=40 mg/dL LDL, calculated 108 <=129 mg/dL Non-HDL Cholesterol 132 mg/dL Chol/HDL ratio 4 Ferritin Collection Time: 08/14/23 8:47 PM Result Value Ref Range Ferritin 52 15 - 150 ng/mL Iron profile w/ IBC Collection Time: 08/14/23 8:47 PM Result Value Ref Range Iron 71 35 - 145 mcg/dL TIBC 303 250 - 400 mcg/dL Transferrin saturation 23 20 - 50 % Vitamin B12 Collection Time: 08/14/23 8:47 PM Result Value Ref Range Vitamin B12 393 230 - 1,250 pg/mL Protime-INR Collection Time: 08/14/23 8:47 PM Result Value Ref Range PT 14.1 12.0 - 14.6 sec INR 1.1 0.9 - 1.2 aPTT Collection Time: 08/14/23 8:47 PM Result Value Ref Range aPTT 29 22 - 37 sec Hemoglobin A1c Collection Time: 08/14/23 8:47 PM Result Value Ref Range Hgb A1C 8.4 (H) 4.0 - 5.6 % Estimated Average Glucose 194 mg/dL Thyroid Function [place] Collection Time: 08/14/23 8:47 PM Result Value Ref Range TSH 2.71 0.30 - 4.20 mcIUnit/mL Basic metabolic panel Collection Time: 08/15/23 5:38 AM Result Value Ref Range Sodium 140 135 - 145 mmol/L Potassium, pl 3.6 3.3 - 4.9 mmol/L Chloride 105 97 - 110 mmol/L CO2 26 22 - 32 mmol/L Anion gap 9 2 - 15 mmol/L BUN 11 6 - 25 mg/dL Creatinine 0.50 (L) 0.60 - 1.10 mg/dL Glucose 157 70 - 199 mg/dL Calcium 8.3 (L) 8.5 - 10.3 mg/dL CBC with auto differential Collection Time: 08/15/23 5:38 AM Result Value Ref Range WBC 7.0 3.8 - 9.9 K/cumm Hgb 11.7 (L) 11.9 - 15.5 g/dL Hct 36.9 35.6 - 45.5 % Plt 215 150 - 400 K/cumm MPV 9.4 9.1 - 12.3 fL RBC 4.05 3.90 - 5.20 M/cumm MCV 91.1 81.3 - 96.4 fL MCH 28.9 27.1 - 33.3 pg MCHC 31.7 (L) 32.3 - 35.7 g/dL RDW CV 13.5 11.1 - 14.9 % RDW SD 45.1 35.7 - 48.1 fL NRBC abs 0.00 0.00 - 0.01 K/cumm Differential, auto Collection Time: 08/15/23 5:38 AM Result Value Ref Range Neutrophil abs 4.0 1.5 - 6.5 K/cumm Imm gran abs 0.0 0.0 - 0.1 K/cumm Lymphocyte abs 2.1 0.8 - 3.3 K/cumm Monocyte abs 0.5 0.2 - 0.8 K/cumm Eosinophil abs 0.3 0.0 - 0.5 K/cumm Basophil abs 0.0 0.0 - 0.1 K/cumm Neutrophil pct 57.3 % Imm gran pct 0.1 % Lymphocyte pct 30.2 % Monocyte pct 7.6 % Eosinophil pct 4.4 % Basophil pct 0.4 % eGFR Collection Time: 08/15/23 5:38 AM Result Value Ref Range eGFR >90 >=60 mL/min/1.73 m2 POCT glucose Collection Time: 08/15/23 9:12 AM Result Value Ref Range Glucose, POC 179 70 - 199 mg/dL XR Chest 1 Vw Portable Result Date: 08/14/2023 Narrative: EXAM DESCRIPTION: XR CHEST 1 VIEW REASON FOR STUDY: epigastric,chest pain Pt states mid abdominal pain since last night, increased epigastric pain after drinking water x today TECHNIQUE: Single-view COMPARISON: 05/11/2023 FINDINGS: Perihilar interstitial densities are somewhat more pronounced than previous and may represent peribronchial inflammatory changes with subtle vascular congestion not excluded but probably less likely. No dense consolidation, effusion or pneumothorax. IMPRESSION: Mild peribronchial inflammatory changes versus vascular congestion. THIS IS AN ELECTRONICALLY V ERIFIED FINAL REPORT 08/14/2023 4:09 PM - Electronically signed by Ryan Partida M.D. RB: LALA Report ID: [id number] Reading Location: [place] [id number] CT Abdomen Pelvis W Contrast Result Date: 08/14/2023 Narrative: EXAM DESCRIPTION: CT ABDOMEN PELVIS W CONTRAST REASON FOR STUDY: Nausea/vomiting, Abdominal pain, acute, nonlocalized Patient endorses mid abdominal pain, nausea, vomiting and diarrhea since last night. Also complains of urinary symptoms. Patient states she has been taking Mounjaro x 4 weeks. TECHNIQUE: CT scan of the abdomen and pelvis performed with intravenous and without oral contrast using helical scanning technique with dynamic intravenous contrast injection. Reconstructed coronal and sagittal MPR images reviewed. All images stored on PACS. Automated exposure control was usedas a dose optimization technique for this examination. CONTRAST TYPE/DOSE: 100mL of IOVERSOL 350 MG IODINE/ML INTRAVENOUS SYRINGE injected via intravenous COMPARISON: CT abdomen and pelvis 02/03/2023REFERENCE: Per ACR white paper recommendations, unless otherwise specified no follow-up imaging is recommended for incidental renal and adrenal lesions per consensus recommendations based on imaging criteria. Further lab evaluation could be pursued based on clinical findings. FINDINGS: LOWER CHEST:No acute findings. Mitral annular calcifications. LIVER: Normal. GALLBLADDER: Absent. SPLEEN: Normal. PANCREAS: Normal. ADRENALS: Normal. KIDNEYS/URINARY TRACT: Symmetric urinary enhancement. Water density right renal lesion which should represent a cyst. No urolithiasis or hydronephrosis. GI: No bowel obstruction. Colonic diverticula without acute diverticulitis. Normal appendix. PERITONEUM: No free intraperitoneal air or free fluid. REPRODUCTIVE: Normal. VASCULATURE: No abdominal aortic aneurysm. MUSCULOSKELETAL: No acute skeletal abnormality. OTHER: Previous ventral abdominal wall hernia repair with mesh placement. No adjacent fluid collection. Stimulator device in the left flank with lead entering the posterior central canal in the lower thoracic spine with posterior element resections. IMPRESSION: No acute findings. Chronic changes as above. THIS IS AN ELECTRONICALLY VERIFIED FINALREPORT 08/14/2023 2:29 PM - Electronically signed by David Carlton M.D. JR: D: 2:29 PM Report ID: [id number] Reading Location: [id number] VAS LEFT VENOUS DUPLEX LE Result Date: 07/27/2023 Narrative: A/P: Principal Problem: Abdominal pain Resolved Problems: No resolved hospital problems. Abdominal pain CT of the abdomen did not reveal any acute findings. Abdominal pain could be secondary to Mounjaro versus UTI. Mounjaro use can cause up to 20% nausea, vomiting and abdominal pain. Patient received 1 dose of fosfomycin for possible UTI. Currently awaiting ID recommendations due to her history of multiple antibiotic allergies Advised the patient to discontinue Mounjaro to prevent possible side effects -pain control -monitor labs; CBC, CMP Acute cystitis without hematuria Patient does have symptoms such as dysuria, frequency and lower abdominal pain. No significant leukocytosis. CRP and ESR only very mildly elevated. Urine culture shows E coli that is resistant to ampicillin and ciprofloxacin in June of 2022. Patient is allergic to multiple antibiotics including cephalosporins, penicillins, fluoroquinolones, Bactrim and meropenem She received a dose of fosfomycin yesterday in the ER Currently awaiting ID recommendations for further antibiotic choice Follow-up urine culture results Diabetes mellitus with hyperglycemia -hold home insulin dosing Patient is still not eating much. We will resume her home Lantus dose at a lower dose of 12 units daily Continue sliding scale -check blood glucose -hypoglycemic protocol -A1c 8.4 -may need to adjust insulin depending on FSBG readings Breast cancer -continue home Aromasin Primary Hypertension -BP 152/91 -continue home hydrochlorothiazide History of PE -continue home Xarelto RLS -continue home Requip Back pain -continue home Robaxin Code status: Full Code DVT prophylaxis: Xarelto PT/OT: Ordered Case discussed Press Operator Helper Bedside nurse My total encounter time on 08/15/2023 was 39 minutes which was spent in the activities documented in the note. This includes the time spent prior to the visit and after the visit in direct care of the patient. This time does not include the time spent in any separately reportable services. Voice recognition software [employer] Fluency Direct may have been used dictate and transcribe this document. Wood Cut Engraver variances may occur. Despite proofreading, typographical errors may occur. Teressa Gonzales MD 08/15/2023 11:28 AM * Mohini Duran, PT - 08/15/2023 11:22 AM CDT Physical Therapy 08/15/23 1122 General Chart Reviewed Yes Session Type Evaluation PT Received On 08/15/23 Safe Environment Arm band checked;Gait belt utilized for all out of bed mobility Subjective Agreeable to Therapy Subjective Comment States daughter is her live in, paid caregiver. Additional Pertinent History Dx: abdo pain, cystitis.. 68 y.o. female patient with a PMHx significant for but not limited to recurrent UTIs, breast cancer, CHF, depression, diabetes mellitus, PE presents to the ED with a chief complaint of periumbilical abdominal pain. Also reports nausea, vomiting, diarrhea since last night. Also reports urinary symptoms. She states that she has been taken Mounjaro x4 weeks and last injection was 6 days ago. She denies having any issues with medication. She denies eating anything that may have caused her to become ill and denies any recent sick contacts. Shedenies fever and malaise. She reports having mild urinary frequency and has a history of recurrent UTIs. She also reports her stool having a bad odor with having some diarrhea and reports having chills. She also reports some numbness and tingling in her right hand. Upon interview and exam, patient awake, alert, and oriented x3. Abdominal tenderness noted in periumbilical and suprapubic area. Patient lives at home with .. Family/Caregiver Present No Physical Therapy-Patient Goal Eliminate abdo pain. Precautions Precautions Bed/Chair Alarm;Fall risk Home Living Type of Home House Home Layout One level Home Access Stairs to enter without rails Entrance Stairs-Rails None Entrance Stairs-Number of Steps 2 Bathroom Shower/Tub Tub/shower unit Bathroom Toilet Standard Bathroom Equipment Grab bars in shower/tub;Shower chair Home Mobility Equipment-Available Wheeled walker;Single point cane Home Mobility Equipment-Currently Using Wheeled walker;Single point cane (cane inside home, walker outside home) Prior Function Level of [place] Needs assistance with homemaking;Needs assistance with ADLs;Independent with ambulation;Independent functional transfers Lives With Spouse;Daughter Receives Help From Spouse/Significant other;Family (daughter is paid caregiver) Vocational/Occupation Retired Fall within the last 6 months Yes Fall within the last 6 months comment 1 - states tripped over a rug Prior Function Comments states daughter helps her in/out of shower, lower body dressing, cookong, cleaning. Pain Assessment Pain Assessment 0-10 Pain Score 4 Pain Location Abdomen Cognition Orientation Oriented X4 (person, place, time, situation) Following Commands Follows all commands and directions without difficulty Compliance/Behavior Easy to engage Bed Mobility 1 Bed Mobility From 1 Supine Bed Mobility Type 1 To Bed Mobility to 1 Edge of bed Level of Assistance 1 Modified Independent Transfer 1 Transfer From 1 Sit Transfer Type 1 To and from Transfer to 1 Stand Technique 1 Sit to stand;Stand to sit Transfer Device 1 Wheeled walker Transfer Level of Assistance 1 Contact Guard Assist Ambulation 1 Distance (ft) 1 15 x 2 Surface 1 Level tile Device 1 Wheeled walker Assistance 1 Contact Guard Assist Gait: Requires verbal cues to 1 Improve upright posture Ambulation Comments 1 Pt ambulated to bathroom and back; afterward sat on edge of bed and dry heaved. RN notified. RUE Assessment RUE Assessment WFL LUE Assessment LUE Assessment WFL RLE Assessment RLE Assessment WFL LLE Assessment LLE Assessment WFL PT Treatment/Exercise Comments PT Treatment/Exercise Comments bilat le jacques grossly 4-/5 Safe Environment End of Therapy Session Safe Environment End of Therapy Session Patient left in recliner;Chair alarm in place and activated;RN notified;Call light within reach;Overbed table within reach;Bed in lowest position with wheels locked Assessment Prognosis Good Problem List Gait deviations;Decreased strength;Impaired balance;Pain Barriers to Discharge None Plan Plan Plan of care initiated Recommendation/Plan PT Recommendation/Plan Home with intermittent assist PT Frequency during current admission 5-7x/wk Treatment/Interventions during current admission Endurance training;Functional transfer training;Gait training;Strengthening;Therapeutic exercise;Transfer training PT - Next Appointment 08/29/23 PT Evaluation Complete Yes Multi-Disciplinary Problems (from Physical Therapy) Active Problems Problem: Mobility Start Date: 08/15/23 Goal Start Date Expected End Date End Date LTG - Patient will demonstrate functional mobility with the following level of assist: 08/15/23 08/29/23 -- Goal Details: Pt will transfer and ambulate w walker or cane, 100 feet, sba of 1. documented in this encounter H&P Notes * Ruben Quiros STOCK LAYER - 08/14/2023 6:46 PM CDT Images from the original note were not included. History and Physical Date of Service: 08/14/2023 Primary Care Physician: Justen Gale MD [phone] CHIEF COMPLAINT: Patient is a 68 y.o. female presenting to the ED with a chief complaint of abdominal pain. HPI: 68 y.o. female patient with a PMHx significant for but not limited to recurrent UTIs, breast cancer, CHF, depression, diabetes mellitus, PE presents to the ED with a chief complaint of periumbilical abdominal pain. Also reports nausea, vomiting, diarrhea since last night. Also reports urinary symptoms. She states that she has been taken Mounjaro x4 weeks and last injection was 6 days ago. She denies having any issues with medication. She denies eating anything that may have caused her to becomeill and denies any recent sick contacts. She denies fever and malaise. She reports having mild urinary frequency and has a history of recurrent UTIs. She also reports her stool having a bad odor withhaving some diarrhea and reports having chills. She also reports some numbness and tingling in her right hand. Upon interview and exam, patient awake, alert, and oriented x3. Abdominal tenderness noted in periumbilical and suprapubic area. Patient denies headache, visual changes, blurred vision, runny nose, difficulty swallowing, fever, malaise, shortness of breath, constipation, weakness, dizzine ss, or feeling lightheaded. Patient lives at home with .. She denies the use of nicotine, alcohol, or the use of recreational substances. Pertinent labs show: CMP shows glucose 290, otherwise unremarkable. CBC unremarkable. UA shows 3+ glucose, trace blood, 2+ leukocytes, 21-50 WBCs, 11-20 squamous epithelial cells, trace bacteria, present mucous. Urine culture pending Radiology results show: CT abdomen and pelvis shows: No acute findings. Water density right renal lesion which could represent a cyst Colonic diverticula without acute diverticulitis Previous ventral abdominal wall hernia repair with mesh placement CXR shows: Mild peribronchial inflammatory changes versus vascular congestion Medications given in ED: Fosfomycin 3 g p.o. Dilaudid 0.5 mg IV x2 Dilaudid 1 mg IV x1 Past Medical History: Diagnosis Date Adiposity obesity Breast CA (HCC) Cancer (CMS/HCC) (HCC) breast CHF (congestive heart failure) (CMS/HCC) (HCC) Depression Depression Diabetes (HCC) Disorder of thyroid Thyroid disease DVT (deep venous thrombosis) ([facility]) ([facility]) HX OTHER MEDICAL restless leg syndrome HX OTHER MEDICAL RLS Hypertension Hypertension Osteoarthritis osteoarthritis PE (pulmonary thromboembolism) ([facility] [...] N/A 10/24/2014 (Not in a hospital admission) Allergies Allergen Reactions Ceftriaxone Anaphylaxis R Ceftriaxone [...] Use: Not At Risk (06/16/2023) Received from [facility] Health AUDIT-C Frequency of Alcohol Consumption: Never [...] Other Family history of restless leg syndrome; Review of Systems: Review of Systems OBJECTIVE: Vitals: Arrival Vitals Temp 08/14/23 1204 36.7 ??C (98 ??F) Pulse 08/14/23 1204 87 Resp 08/14/23 1204 16 BP 08/14/23 1204 149/89 SpO2 08/14/23 1204 97 % Temp src 08/14/23 1204 Oral Heart Rate Source 08/14/23 1440 Monitor Patient Position 08/14/23 1440 Lying BP Location 08/14/23 1440 Left arm FiO2 (%) -- Most Recent : Vitals: 08/14/23 1204 08/14/23 1440 08/14/23 1745 BP: 149/89 166/96 152/91 BP Location: Left arm Patient Position: Lying Pulse: 87 86 84 Resp: 16 18 18 Temp: 36.7 ??C (98 ??F) TempSrc: Oral SpO2: 97% 99% 95% Weight: 121.8 kg (268 lb 8.3 oz) Height: 154.9 cm (5' 1 ) No intake/output data recorded. No intake/output data recorded. Physical Exam: Physical Exam Vitals and nursing note reviewed. Constitutional: Appearance: She is well-developed. She is obese. She is ill-appearing. HENT: Head: Normocephalic and atraumatic. Mouth/Throat: Mouth: Mucous membranes are moist. Eyes: Extraocular Movements: Extraocular movements intact. Pupils: Pupils are equal, round, and reactive to light. Cardiovascular: Rate and Rhythm: Normal rate and regular rhythm. Abdominal: Tenderness: There is abdominal tenderness in the periumbilical area and suprapubic area. Comments: Firmness noted in periumbilical area Musculoskeletal: Comments: 1+ BLE edema Skin: General: Skin is warm and dry. Capillary Refill: Capillary refill takes less than 2 seconds. Neurological: Mental Status: She is alert and oriented to person, place, and time. Psychiatric: Mood and Affect: Mood normal. Behavior: Behavior normal. Lab/Radiology/Diagnostic Review: Recent Results (from the past 24 hour(s)) CBC with auto differential Collection Time: 08/14/23 12:20 PM Result Value Ref Range WBC 8.3 3.8 - 9.9 K/cumm Hgb 14.1 11.9 - 15.5 g/dL Hct 43.3 35.6 - 45.5 % Plt 277 150 - 400 K/cumm MPV 9.9 9.1 - 12.3 fL RBC 4.94 3.90 - 5.20 M/cumm MCV 87.7 81.3 - 96.4 fL MCH 28.5 27.1 - 33.3 pg MCHC 32.6 32.3 - 35.7 g/dL RDW CV 13.4 11.1 - 14.9 % RDW SD 42.9 35.7 - 48.1 fL NRBC abs 0.00 0.00 - 0.01 K/cumm Comprehensive metabolic panel Collection Time: 08/14/23 12:20 PM Result Value Ref Range Sodium 137 135 - 145 mmol/L Potassium, pl 4.2 3.3 - 4.9 mmol/L Chloride 99 97 - 110 mmol/L CO2 26 22 - 32 mmol/L Anion gap 12 2 - 15 mmol/L BUN 13 6 - 25 mg/dL Creatinine 0.60 0.60 - 1.10 mg/dL Glucose 290 (H) 70 - 199 mg/dL Calcium 10.1 8.5 - 10.3 mg/dL Bilirubin, total 0.7 0.1 - 1.2 mg/dL Protein, pl 8.7 (H) 6.5 - 8.5 g/dL Albumin 4.1 3.5 - 5.0 g/dL Alk phos 86 40 - 130 Units/L ALT 23 7 - 45 Units/L AST 21 10 - 45 Units/L Lipase Collection Time: 08/14/23 12:20 PM Result Value Ref Range Lipase 20 10 - 99 Units/L Differential, auto Collection Time: 08/14/23 12:20 PM Result Value Ref Range Neutrophil abs 5.2 1.5 - 6.5 K/cumm Imm gran abs 0.0 0.0 - 0.1 K/cumm Lymphocyte abs 2.2 0.8 - 3.3 K/cumm Monocyte abs 0.6 0.2 - 0.8 K/cumm Eosinophil abs 0.3 0.0 - 0.5 K/cumm Basophil abs 0.0 0.0 - 0.1 K/cumm Neutrophil pct 62.2 % Imm gran pct 0.5 % Lymphocyte pct 26.4 % Monocyte pct 7.0 % Eosinophil pct 3.5 % Basophil pct 0.4 % eGFR Collection Time: 08/14/23 12:20 PM Result Value Ref Range eGFR >90 >=60 mL/min/1.73 m2 Urinalysis reflex to microscopic and culture Urine Collection Time: 08/14/23 12:30 PM Specimen: Urine Result Value Ref Range Color, ur Yellow Yellow Clarity, ur Clear Clear Specific gravity, ur 1.019 1.003 - 1.030 pH, urine 5.5 Protein, ur ql Negative Negative Glucose, ur ql 3+ (A) Negative Ketones, ur Negative Negative Bilirubin, ur Negative Negative Blood, ur Trace (A) Negative Urobilinogen, ur <2.0 <2.0 mg/dL Nitrite, ur Negative Negative Leukocyte esterase, ur 2+ (A) Negative UA reflex comment Reflex to microscopic UA will be performed. Urinalysis, microscopic only Collection Time: 08/14/23 12:30 PM Result Value Ref Range WBC, ur 21-50 (A) 0 - 5 /HPF RBC, ur 0-2 0 - 2 /HPF Epithelial cells, squamous, ur 11-20 (A) 0 - 5 /HPF Bacteria, ur Trace (A) Mucous, ur Present (A) Hyaline casts, ur 1-5 0 - 10 /LPF Culture Reflex Comment Reflex to urine culture will be performed. POCT glucose Collection Time: 08/14/23 5:37 PM Result Value Ref Range Glucose, POC 181 70 - 199 mg/dL Sepsis Lactate w/ Reflex Collection Time: 08/14/23 5:49 PM Result Value Ref Range Sepsis Lactate 1.2 0.7 - 2.0 mmol/L XR Chest 1 Vw Portable Result Date: 08/14/2023 Narrative: EXAM DESCRIPTION: XR CHEST 1 VIEW REASON FOR STUDY: epigastric,chest pain Pt states mid abdominal pain since last night, increased epigastric pain after drinking water x today TECHNIQUE: Single-view COMPARISON: 05/11/2023 FINDINGS: Perihilar interstitial densities are somewhat more pronounced than previous and may represent peribronchial inflammatory changes with subtle vascular congestion not excluded but probably less likely. No dense consolidation, effusion or pneumothorax. IMPRESSION: Mild peribronchial inflammatory changes versus vascular congestion. THIS IS AN ELECTRONICALLY V ERIFIED FINAL REPORT 08/14/2023 4:09 PM - Electronically signed by Ryan Partida M.D. RB: LALA Report ID: [id number] Reading Location: [id number] CT Abdomen Pelvis W Contrast Result Date: 08/14/2023 Narrative: EXAM DESCRIPTION: CT ABDOMEN PELVIS W CONTRAST REASON FOR STUDY: Nausea/vomiting, Abdominal pain, acute, nonlocalized Patient endorses mid abdominal pain, nausea, vomiting and diarrhea since last night. Also complains of urinary symptoms. Patient states she has been taking Mounjaro x 4 weeks. TECHNIQUE: CT scan of the abdomen and pelvis performed with intravenous and without oral contrast using helical scanning technique with dynamic intravenous contrast injection. Reconstructed coronal and sagittal MPR images reviewed. All images stored on PACS. Automated exposure control was usedas a dose optimization technique for this examination. CONTRAST TYPE/DOSE: 100mL of IOVERSOL 350 MG IODINE/ML INTRAVENOUS SYRINGE injected via intravenous COMPARISON: CT abdomen and pelvis 02/03/2023REFERENCE: Per ACR white paper recommendations, unless otherwise specified no follow-up imaging is recommended for incidental renal and adrenal lesions per consensus recommendations based on imaging criteria. Further lab evaluation could be pursued based on clinical findings. FINDINGS: LOWER CHEST:No acute findings. Mitral annular calcifications. LIVER: Normal. GALLBLADDER: Absent. SPLEEN: Normal. PANCREAS: Normal. ADRENALS: Normal. KIDNEYS/URINARY TRACT: Symmetric urinary enhancement. Water density right renal lesion which should represent a cyst. No urolithiasis or hydronephrosis. GI: No bowel obstruction. Colonic diverticula without acute diverticulitis. Normal appendix. PERITONEUM: No free intraperitoneal air or free fluid. REPRODUCTIVE: Normal. VASCULATURE: No abdominal aortic aneurysm. MUSCULOSKELETAL: No acute skeletal abnormality. OTHER: Previous ventral abdominal wall hernia repair with mesh placement. No adjacent fluid collection. Stimulator device in the left flank with lead entering the posterior central canal in the lower thoracic spine with posterior element resections. IMPRESSION: No acute findings. Chronic changes as above. THIS IS AN ELECTRONICALLY VERIFIED FINALREPORT 08/14/2023 2:29 PM - Electronically signed by David Carlton M.D. JR: D: 2:29 PM Report ID: [id number] Reading Location: [id number] VAS LEFT VENOUS DUPLEX LE Result Date: 07/27/2023 Narrative: ASSESSMENT/PLAN: Principal Problem: Abdominal pain Resolved Problems: No resolved hospital problems. Full Code Estimated LOS: Greater than 2 midnights Abdominal pain -likely secondary to acute cystitis -antibiotic therapy -pain control -monitor labs; CBC, CMP Acute cystitis -Urine culture pending -fosfomycin 3 g given in ED -follow urine culture -ID consulted, appreciate recommendations -Cont. IVF ordered -Monitor I&O Diabetes mellitus with hyperglycemia -hold home insulin dosing -start Lantus 26 units subcutaneous daily -start lispro 22 units with meals when no longer NPO -start sliding scale insulin, insulin sensitive scale -check blood glucose -hypoglycemic protocol -check Hemoglobin A1c, hemoglobin A1c on 12/25/2022 8.6 -may need to adjust insulin depending on FSBG readings Breast cancer -continue home Aromasin Hypertension -BP 152/91 -continue home hydrochlorothiazide History of PE -continue home Xarelto RLS -continue home Requip Back pain -continue home Robaxin Advance Care Planning Advance Care Planning Conversation Pertinent diagnoses: Abdominal pain [R10.9] The patient and/or family consented to a voluntary Advance Care Planning conversation. Individuals present for the conversation: patient Summary of the conversation: STOCK LAYER discussed with patient life saving interventions such as compressions, defibrillation, cardioversion, and intubation if the patient should go into cardiac or respiratory arrest. Patient states that he/she/they would like to have all life saving interventions initiated if this should occur. She also states that ,Jimmie Marques and daughter, Marin Marques or tomake medical decisions on her behalf if she is unable to do so. Outcome of the conversation and documents completed (select all that apply): CHANGE code status to FULL CODE I spent 4 minutes providing separately identifiable ACP services with the patient and/or surrogate decision maker in a voluntary, in-person conversation discussing the patient's wishes and goals as detailed in the above note. Ruben Quiros NP My total encounter time on 08/14/2023 was 65 minutes which was spent in the activities documented inthe note. This includes time spent prior to the visit and after the visit in direct care of the patient. This time does not include time spent in any separately reportable services. Voice recognition software [employer] may have been used to dictate and transcribe this document. [employer] variances may occur. Despite proofreading, typographical errors may occur. Ruben Quiros NP 08/14/2023 8:03 PM Cosigned by Philippe Mcguire MD at 08/14/2023 8:24 PM CDT documented in this encounter Consult Notes * Aislinn Diaz LCSW - 08/16/2023 8:02 AM CDTAssociated Order(s): IP CONSULT TO SOCIAL WORK Acknowledge Consult TECHNICAL WRITER consulted for high risk for readmission or high utilizer patient, health disparity and social determinants of health. Pt independent from home with spouse, anticipate returning home at md. No social service needs identified at this time. CM following for discharge planning and progression of care and can consult ss if needs arise. Aislinn Diaz LCSW 8:02 AM 08/16/2023 * Genaro Coy MD - 08/15/2023 3:16 PM CDTAssociated Order(s): IP CONSULT TO INFECTIOUS DISEASES Infectious Disease Consult Requesting physician: Dr. Gonzales Date of consultation: 08/14/2023 Reason for consultation: lower abdominal pain. History of cystitis HPI: 68-year-old female with significant past medical type 2 diabetes, obesity, breast cancer, recurrenturinary tract infection, depression and pulmonary embolism presented to the emergency room with chief complaint of lower abdominal pain. [facility] and treated forurinary tract infection. Denied any fever or chills denied any flank pain. No hematuria. Urinalysiscollected on admission showed pyuria. Urine culture showed 100,000 colonies of E coli. Patient stated that she is recently was treated with fosfomycin subsequently followed by Augmentin. Patient alsostated that she was on methenamine hippurate which in the past had prevented her from having urinary tract infection but had run out recently. Past Medical History: Diagnosis Date Adiposity obesity Breast CA (HCC) Cancer (CMS/HCC) (HCC) breast CHF (congestive heart failure) (CMS/HCC) (HCC) Depression Depression Diabetes (HCC) Disorder of thyroid Thyroid disease DVT (deep venous thrombosis) (CMS/HCC) (HCC) HX OTHER MEDICAL restless leg syndrome HX OTHER MEDICAL RLS Hypertension Hypertension Osteoarthritis osteoarthritis PE (pulmonary thromboembolism) ([facility] [...] 12/11/2014 SOFT TISSUE ABSCESS DRAIN N/A 10/24/2014 HOME MEDICATIONS : BD Ultra-Fine Short Pen Needle 31 gauge x 5/16 needle blood glucose diagnostic (OneTouch Ultra Test) strip exemestane (AROMASIN) 25 mg tablet HYDROcodone-acetaminophen (NORCO) 7.5-325 mg per tablet insulin glargine (LANTUS) 100 unit/mL injection insulin lispro (HumaLOG) 100 unit/mL injection methenamine (HIPREX) 1 gram tablet methocarbamoL (ROBAXIN) 500 mg tablet oxybutynin XL (DITROPAN-XL) 10 mg 24 hr tablet rivaroxaban (Xarelto) 20 mg tablet rOPINIRole (REQUIP) 5 mg tablet albuterol HFA (PROVENTIL HFA,VENTOLIN HFA,PROAIR HFA) 90 mcg/actuation inhaler amitriptyline (ELAVIL) 25 mg tablet HumaLOG 100 unit/mL pen for injection hydroCHLOROthiazide (MICROZIDE) 12.5 mg capsule hydrOXYzine (ATARAX) 10 mg tablet naloxone (NARCAN) 4 mg/actuation spray,non-aerosol Current Facility-Administered Medications Ordered in Epic Medication Dose Route Frequency Provider Last Rate Last Admin acetaminophen (TYLENOL) tablet 650 mg 650 mg oral Q4H PRN Philippe Mcguire MD Carrier Fluids for Secondary Infusion - 0.9% Sodium Chloride 30 mL intravenous PRN Philippe Mcguire MD dextrose (GLUTOSE) 40 % gel 15 g 15 g oral Q15 Min PRN Philippe Mcguire MD Or dextrose (D10W) 10% bolus 250 mL 250 mL intravenous Q15 Min PRN Philippe Mcguire MD diphenhydrAMINE (BENADRYL) tab/cap 25 mg 25 mg oral QID PRN Teressa Wilkins MD 25 mg at 08/15/23 1014 exemestane (AROMASIN) 25mg tablet PATIENT OWN SUPPLY 25 mg oral Nightly Ruben Quiros NP glucagon injection 1 mg 1 mg intramuscular Q30 Min PRN Philippe Mcguire MD HYDROcodone-acetaminophen (NORCO) 5-325 mg per tablet 1 tablet 1 tablet oral Q4H PRN Philippe Mcguire MD 1 tablet at 08/15/23 1200 HYDROmorphone (DILAUDID) injection 0.5 mg 0.5 mg intravenous Q4H PRN Philippe Mcguire MD insulin glargine (LANTUS, SEMGLEE) 100 unit/mL injection 12 Units 12 Units subcutaneous Teressa Rush MD 12 Units at 08/15/23 0943 insulin lispro (HumaLOG, ADMELOG) 100 unit/mL injection 0-4 Units 0-4 Units subcutaneous Nightly Philippe Mcguire MD insulin lispro (HumaLOG, ADMELOG) 100 unit/mL injection 0-5 Units 0-5 Units subcutaneous TID with meals Philippe Mcguire MD 1 Units at 08/15/23 1200 [Held by Provider] insulin lispro (HumaLOG, ADMELOG) 100 unit/mL injection 22 Units 22 Units subcutaneous TID with meals Ruben Quiros, CURTIS methocarbamoL (ROBAXIN) tablet 500 mg 500 mg oral BID Philippe Mcguire MD 500 mg at 08/15/23 0942 morphine injection 2 mg 2 mg intravenous Q4H PRN Philippe Mcguire MD 2 mg at 08/15/23 1430 ondansetron (ZOFRAN) injection 4 mg 4 mg intravenous Once PRN Philippe Mcguire MD ondansetron ODT (ZOFRAN-ODT) disintegrating tablet 4 mg 4 mg oral Q6H PRN Philippe Mcguire MD 4 mg at 08/15/23 1153 Or ondansetron (ZOFRAN) injection 4 mg 4 mg intravenous Q6H PRN Philippe Mcguire MD ondansetron ODT (ZOFRAN-ODT) disintegrating tablet 4 mg 4 mg oral Once PRN Philippe Mcguire MD ramelteon (ROZEREM) tablet 8 mg 8 mg oral Nightly PRN Philippe Mcguireiel, MD rivaroxaban (XARELTO) tablet 20 mg 20 mg oral Daily Philippe Mcguire MD 20 mg at 942 rOPINIRole (REQUIP) tablet 5 mg 5 mg oral Nightly Philippe Mcguire MD 5 mg at 08/14/23 2200 sodium chloride 0.9% flush 0.5-20 mL 0.5-20 mL intra-catheter Q8H RODERICK Philippe Mcguire MD10 mL at 08/15/23 1430 sodium chloride 0.9% flush 0.5-20 mL 0.5-20 mL intra-catheter PRN Philippe Mcguire MD No current [facility]-ordered outpatient medications on file. Immunosuppressive Medications: Immunosuppressive Medications (From admission, onward) Start Dose/Rate Route Frequency Ordered Stop 08/14/232099 exemestane (AROMASIN) 25mg tablet PATIENT OWN SUPPLY 25 mg oral Nightly 08/14/23 193 Active LDAs: Peripheral IV 08/14/23 20 G Posterior;Right Hand (Active) Site Assessment Clean and dry 08/14/232014 IV Line Status Single Infusing 08/14/232014 Dressing Type Transparent 08/14/232014 Dressing Status Clean, dry, intact 08/14/232014 Number of days: 1 [REMOVED] Peripheral IV 10/02/20 20 G Right Antecubital (Removed) Number of days: 0 [REMOVED] Peripheral IV 11/19/20 22 G Right Antecubital (Removed) Number of days: 0 [REMOVED] Peripheral IV 01/05/21 22 G Right Antecubital (Removed) Site Assessment Clean and dry 01/05/211735 IV Line Status Single Blood return noted;Flushes easily;Saline locked 01/05/21 173 Dressing Type Transparent 01/05/21 1625 Dressing Status Clean, dry, intact 01/05/21 173 Number of days: 0 [REMOVED] Peripheral IV 08/01/21 20 G Right Antecubital (Removed) Site Assessment Clean and dry 08/03/212099 IV Line Status Single Saline locked;Flushes easily 08/04/21 1000 Dressing Type Transparent 08/04/21 1000 Dressing Status Clean, dry, intact 08/03/21 2100 Reason Not Rotated Not clinically indicated 08/03/212099 Number of days: 3 [REMOVED] Peripheral IV 08/16/21 20 G Right Antecubital (Removed) Number of days: 0 [REMOVED] Peripheral IV 09/11/21 20 G Right Forearm (Removed) Site Assessment Clean and dry 09/14/21 111 IV Line Status Single Flushes easily 09/14/21 1114 Dressing Type Transparent 09/14/21 1114 Dressing Status Clean, dry, intact 09/14/21 111 Number of days: 3 [REMOVED] Peripheral IV 09/19/21 18 G Right Antecubital (Removed) Number of days: 26 [REMOVED] Peripheral IV 10/15/21 20 G Right Antecubital (Removed) Number of days: 0 [REMOVED] Peripheral IV 10/20/21 20 G Right Antecubital (Removed) Number of days: 1 [REMOVED] Peripheral IV 10/25/21 20 G Right Antecubital (Removed) Number of days: 59 [REMOVED] Peripheral IV 12/22/21 20 G Right Antecubital (Removed) Number of days: 1 [REMOVED] Peripheral IV 12/23/21 20 G Right Arm (Removed) Site Assessment Clean and dry 12/26/211121 IV Line Status Single Flushes easily 12/26/211121 Dressing Type Transparent 12/26/21 112 Dressing Status Clean, dry, intact 12/26/211121 Reason Not Rotated Not clinically indicated 12/25/21 1905 Number of days: 3 [REMOVED] Peripheral IV 01/28/22 20 G Right Antecubital (Removed) Number of days: 0 [REMOVED] Peripheral IV 02/09/22 20 G Right Antecubital (Removed) Site Assessment Leaking;Painful 02/13/22 1100 IV Line Status Single Leaking 02/13/22 1100 Dressing Type Transparent 02/13/22 1100 Dressing Status Leaking 02/13/22 1100 Reason Not Rotated Not clinically indicated 02/11/22 2100 Number of days: 4 [REMOVED] Peripheral IV 02/27/22 20 G Right Antecubital (Removed) Number of days: 0 [REMOVED] Peripheral IV 03/08/22 20 G Right Antecubital (Removed) Number of days: 27 [REMOVED] Peripheral IV 04/04/22 18 G Right Antecubital (Removed) Number of days: 1 [REMOVED] Peripheral IV 05/14/22 20 G Right Antecubital (Removed) Number of days: 0 [REMOVED] Peripheral IV 06/07/22 20 G Anterior;Right Forearm (Removed) Number of days: 0 [REMOVED] Peripheral IV 06/21/22 20 G Right Antecubital (Removed) Number of days: 0 [REMOVED] Peripheral IV 06/21/22 20 G Left;Posterior Forearm (Removed) Number of days: 0 [REMOVED] Peripheral IV 20 G Right Antecubital (Removed) Number of days: [REMOVED] Peripheral IV 08/16/22 22 G Anterior;Right Forearm (Removed) Site Assessment Clean and dry 08/16/22 1645 IV Line Status Single Blood return noted;Flushes easily;Saline locked 08/16/22 164 Dressing Type Transparent 08/16/22 164 Dressing Status Clean, dry, intact;Occlusive 08/16/22 1645 Number of days: 0 [REMOVED] Peripheral IV 10/05/22 20 G Right Antecubital (Removed) Number of days: 1 [REMOVED] Peripheral IV 01/26/23 20 G Right Antecubital (Removed) Number of days: 0 [REMOVED] Peripheral IV 02/03/23 20 G Right Antecubital (Removed) Number of days: 0 [REMOVED] Peripheral IV 05/11/23 22 G Right Hand (Removed) Number of days: 0 [REMOVED] Midline Catheter 02/13/22 1041 Right Cephalic Upper arm (Removed) Site Assessment Clean and dry 02/16/22 141 Dressing Type Transparent 02/16/22 1419 Dressing Status Clean, dry, intact;Occlusive 02/16/22 141 Lumen #1 Status Flushes easily 02/16/22 141 Lumen #1 Line Interventions Cap changed-Needleless device 02/14/222246 Tubing Changed Done 02/15/22 0915 Line Necessity Reason Reviewed With Care Team Receiving high risk meds that could damage tissue if infiltrated (vesicants such as compazine or antibiotics, TPN, high dextrose concentration, chemotherapy, concentrated meds or fluid restricted);Receiving multiple simultaneous infusions that would require multiple peripheral lines;Patient has history of poor peripheral vascular access with multiple failed attempts at PIV insertion 02/14/227 Number of days: 4 Allergies Allergen Reactions Ceftriaxone Anaphylaxis R Ceftriaxone [...] Use: Not At Risk (06/16/2023) Received from [facility] Health AUDIT-C Frequency of Alcohol Consumption: Never [...] Other Family history of restless leg syndrome; Review of Systems: Review of Systems Constitutional: Negative for fever and weight loss. HENT: Negative for ear pain and hearing loss. Eyes: Negative for blurred vision. Respiratory: Negative for cough and shortness of breath. Cardiovascular: Negative for chest pain and palpitations. Gastrointestinal: Negative for abdominal pain and diarrhea. Genitourinary: Negative for dysuria and hematuria. Musculoskeletal: Negative for joint pain and myalgias. Neurological: Negative for seizures. Endo/Heme/Allergies: Negative for polydipsia. Does not bruise/bleed easily. Psychiatric/Behavioral: Negative for depression. Skin: Objective Vitals: 24hr Min/Max: Temp Min: 36.5 ??C (97.7 ??F) Max: 36.9 ??C (98.4 ??F) Pulse Min: 72 Max: 91 BP Min: 120/69 Max: 152/91 Resp Min: 18 Max: 18 SpO2 Min: 94 % Max: 97 % Most Recent : Vitals: 08/15/23 1510 BP: 146/86 Pulse: 74 Resp: 18 Temp: 36.6 ??C (97.9 ??F) SpO2: 95% No intake/output data recorded. I/O this shift: In: 460 [P.O.:460] Out: - Physical Exam: General: Well appearing, well nourished, in no distress. Oriented x 3, normal mood and affect . Ambulating without difficulty. Skin: Good turgor, no rash, unusual bruising or prominent lesions HEENT: Head: Normocephalic and atraumatic. Eyes: Sclera non-icteric, EOM intact and PERRL Mouth: Mucous membranes moist, no mucosal lesions. Teeth/Gums: No obvious caries or periodontal disease. Pharynx: Mucosa non-inflamed, no tonsillar hypertrophy or exudate Neck: Supple, no adenopathy. Heart: No cardiomegaly or thrills; regular rate and rhythm, no murmur or gallop Lungs: Clear to auscultation and percussion Abdomen: Bowel sounds normal, no tenderness, organomegaly, masses, or hernia Extremities: No edema. peripheral pulses are intact Musculoskeletal: No effusions, intact range of motion. Neurologic: CN 2-12 normal. Sensation to pain, touch. DTRs normal in upper and lower extremities. No pathologic reflexes. Psychiatric: Oriented X3, intact recent and remote memory, judgment and insight, normal mood and affect. Lymph Node: normal Lab/Radiology/Diagnostic Review: Blood cultures x2 sets day 1 no growth. Urinalysis nitrite negative leukocyte esterase 2+ WBC 21-50 RBC 0-2 Urine culture greater than 100,000 colonies of E coli susceptibility pending WBC 7 hemoglobin of 11 hematocrit of 36 platelet 215 segmental of 57% Sodium of 140 potassium of 3.6 chloride of 105 bicarb of 26 BUN 11 creatinine of 0.5. Alk phos of 86 AST of 21 ALT of 23 Chest x-ray mild peribronchial inflammation change with vascular congestion. CT scan of the abdomen and pelvis with contrast: No acute finding. Chronic changes Assessment and plan: Urinary tract infection versus chronic cystitis. Patient stated that she has had cystoscopy and wastold she has significant inflammatory changes within the bladder. Remains afebrile with a normal white count. Blood cultures are negative. Urine culture showing greater than 100,000 colonies of E coli susceptibility pending. Continue fosfomycin every 3 days times 3 dose. Patient has received a 1st dose on 08/14/2023 follow-up by for 08/16/2023 and 08/19/2023 patient subsequently can be transitioned after that to methenamine hippurate. Follow-up on urine cultures 2. Type 2 diabetes currently on Lantus and insulin sliding scale. Hemoglobin A1c of 8.4. Tighter glycemic control recommended 3. Primary hypertension with blood pressure of 152/91 continue hydroxy chlorothiazide. 4. Obesity with BMI of 52 weight loss recommended. 5. Multiple antibiotics allergy. Cephalosporin causes anaphylaxis. Ciprofloxacin causes rash. Zosyncauses rash but has tolerated Augmentin recently. Bactrim causes itching. documented in this encounter ED Notes * Yesi Rivera PA - 08/14/2023 2:47 PM CDT CHIEF COMPLAINT: Chief Complaint Patient presents with Abdominal Pain Nausea Diarrhea HPI 5:57 PM Karly Marques is a 68 y.o. female presenting to the ED c/o periumbilical abdominal painand N/V/D that started yesterday. She denies eating anything that could have caused her to be sick and she denies recent sick contacts. She states she started Mounjaro 4 weeks ago and had her last shot 6 days ago. She has had no issues with it and is unsure if this is causing her symptoms. She denies fever. She states she also has mild urinary frequency and has a hx of recurrent UTIs. No other complaints reported. PCP: Justen Gale MD PAST MEDICAL HISTORY [...] syndrome; MEDICATIONS GIVEN IN THE ED Medications ondansetron ODT (ZOFRAN-ODT) disintegrating tablet 4 mg (has no administration in time range) ondansetron (ZOFRAN) injection 4 mg (has no administration in time range) ioversoL (OPTIRAY 350) syringe 100 mL (100 mL intravenous Contrast Given 08/14/23 1411) sodium chloride 0.9% bolus 500 mL (0 mL intravenous Stopped 08/14/23 1645) morphine injection 4 mg (4 mg intravenous Given 08/14/23 1452) ondansetron (ZOFRAN) injection 4 mg (4 mg intravenous Given 08/14/23 1452) fosfomycin (MONUROL) packet 3 g (3 g oral Given 08/14/23 1525) HYDROmorphone (DILAUDID) injection 0.5 mg (0.5 mg intravenous Given 08/14/23 1533) HYDROmorphone (DILAUDID) injection 0.5 mg (0.5 mg intravenous Given 08/14/23 1601) HYDROmorphone (DILAUDID) injection 1 mg (1 mg intravenous Given 08/14/23 8686) CURRENT HOME MEDICATIONS Current Facility-Administered Medications: ondansetron (ZOFRAN) injection 4 mg, 4 mg, intravenous, Once PRN, Philippe Mcguire MD ondansetron ODT (ZOFRAN-ODT) disintegrating tablet 4 mg, 4 mg, oral, Once PRN, Philippe Mcguire MD Current Outpatient Medications: albuterol HFA (PROVENTIL HFA,VENTOLIN [...] mouth nightly, Disp: 90 tablet, Rfl: 3 HumaLOG 100 unit/mL pen for injection, , [...] (two) times a day, Disp: , Rfl: methocarbamoL (ROBAXIN) 500 mg tablet, Take 1 tablet (500 mg total) by mouth 2 (two) times a day, Disp: 6 tablet, Rfl: 0 naloxone (NARCAN) 4 mg/actuation spray,non-aerosol, , Disp: [...] Use: Not At Risk (06/16/2023) Received from [facility] AUDIT-C Frequency of Alcohol Consumption: Never Average Number of Drinks: Patient does not drink Frequency of Binge Drinking: Never PHYSICAL EXAM TRIAGE VITAL SIGNS: ED Triage Vitals Temp Pulse Resp BP SpO2 08/14/23 1204 08/14/23 1204 08/14/23 1204 08/14/23 1204 08/14/23 1204 36.7 ??C (98 ??F) 87 16 149/89 97 % Temp src Heart Rate Source Patient Position BP Location FiO2 (%) 08/14/23 1204 08/14/23 1440 08/14/23 1440 08/14/23 1440 -- Oral Monitor Lying Left arm Height Height Method Weight Weight Method 08/14/23 1204 08/14/23 1204 08/14/23 1204 08/14/23 1204 1.549 m (5' 1 ) Stated 121.8 kg (268 lb 8.3 oz) Standing scale Physical Exam Vitals and nursing note reviewed. Constitutional: General: She is not in acute distress. Appearance: She is well-developed. She is obese. HENT: Head: Normocephalic and atraumatic. Eyes: Conjunctiva/sclera: Conjunctivae normal. Cardiovascular: Rate and Rhythm: Normal rate and regular rhythm. Heart sounds: No murmur heard. Pulmonary: Effort: Pulmonary effort is normal. No respiratory distress. Breath sounds: Normal breath sounds. Abdominal: Palpations: Abdomen is soft. Tenderness: There is abdominal tenderness in the periumbilical area. Musculoskeletal: General: No swelling. Cervical back: Neck supple. Skin: General: Skin is warm and dry. Capillary Refill: Capillary refill takes less than 2 seconds. Neurological: Mental Status: She is alert. Psychiatric: Mood and Affect: Mood normal. LABS Labs Reviewed URINALYSIS AND REFLEX TO MICROSCOPIC AND CULTURE - Abnormal Result Value Color, ur Yellow Clarity, ur Clear Specific gravity, ur 1.019 pH, urine 5.5 Protein, ur ql Negative Glucose, ur ql 3+ (*) Ketones, ur Negative Bilirubin, ur Negative Blood, ur Trace (*) Urobilinogen, ur <2.0 Nitrite, ur Negative Leukocyte esterase, ur 2+ (*) UA reflex comment Reflex to microscopic UA will be performed. COMPREHENSIVE METABOLIC PANEL - Abnormal Sodium 137 Potassium, pl 4.2 Chloride 99 CO2 26 Anion gap 12 BUN 13 Creatinine 0.60 Glucose 290 (*) Calcium 10.1 Bilirubin, total 0.7 Protein, pl 8.7 (*) Albumin 4.1 Alk phos 86 ALT 23 AST 21 URINALYSIS, MICROSCOPIC ONLY - Abnormal WBC, ur 21-50 (*) RBC, ur 0-2 Epithelial cells, squamous, ur 11-20 (*) Bacteria, ur Trace (*) Mucous, ur Present (*) Hyaline casts, ur 1-5 Culture Reflex Comment Reflex to urine culture will be performed. URINALYSIS AND REFLEX TO MICROSCOPIC AND CULTURE URINE CULTURE CBC WITH AUTO DIFFERENTIAL WBC 8.3 Hgb 14.1 Hct 43.3 Plt 277 MPV 9.9 RBC 4.94 MCV 87.7 MCH 28.5 MCHC 32.6 RDW CV 13.4 RDW SD 42.9 NRBC abs 0.00 LIPASE Lipase 20 DIFFERENTIAL AUTO Neutrophil abs 5.2 Imm gran abs 0.0 Lymphocyte abs 2.2 Monocyte abs 0.6 Eosinophil abs 0.3 Basophil abs 0.0 Neutrophil pct 62.2 Imm gran pct 0.5 Lymphocyte pct 26.4 Monocyte pct 7.0 Eosinophil pct 3.5 Basophil pct 0.4 EGFR eGFR >90 SEPSIS LACTATE WITH REFLEX POCT GLUCOSE DEVICE Glucose, POC 181 POCT GLUCOSE DEVICE POCT GLUCOSE DEVICE POCT GLUCOSE DEVICE POCT GLUCOSE DEVICE RADIOLOGY Impression: CT ABDOMEN PELVIS W CONTRAST REASON FOR STUDY: Nausea/vomiting, Abdominal pain, acute, nonlocalized Patient endorses mid abdominal pain, nausea, vomiting and diarrhea since last night. Also complains of urinary symptoms. Patient states she has been taking Mounjaro x 4 weeks[address] TECHNIQUE: CT scan of the abdomen and pelvis performed with intravenous and without oral contrast using helical scanning technique with dynamic intravenous contrast injection. Reconstructed coronal and sagittal MPR images reviewed. All images stored on PACS. Automated exposure control was used as a dose optimization technique for this examination. CONTRAST TYPE/DOSE: 100mL of IOVERSOL 350 MG IODINE/ML INTRAVENOUS SYRINGE injected via intravenous COMPARISON: CT abdomen and pelvis 02/03/2023 REFERENCE: Per ACR white paper recommendations, unless otherwise specified no follow-up imaging is recommended for incidental renal and adrenal lesions per consensus recommendations based on imaging criteria. Further lab evaluation could be pursued based on clinical findings. FINDINGS: LOWER CHEST: No acute findings. Mitral annular calcifications. LIVER: Normal. GALLBLADDER: Absent. SPLEEN: Normal. PANCREAS: Normal. ADRENALS: Normal. KIDNEYS/URINARY TRACT: Symmetric urinary enhancement. Water density right renal lesion which should represent a cyst. No urolithiasis or hydronephrosis. GI: No bowel obstruction. Colonic diverticula without acute diverticulitis. Normal appendix. PERITONEUM: No free intraperitoneal air or free fluid. REPRODUCTIVE: Normal. VASCULATURE: No abdominal aortic aneurysm. MUSCULOSKELETAL: No acute skeletal abnormality. OTHER: Previous ventral abdominal wall hernia repair with mesh placement. No adjacent fluid collection. Stimulator device in the left flank with lead entering the posterior central canal in the lower thoracic spine with posterior element resections. IMPRESSION: No acute findings. Chronic changes as above. XR CHEST 1 VIEW REASON FOR STUDY: epigastric,chest pain Pt states mid abdominal pain since last night, increased epigastric pain after drinking water x today TECHNIQUE: Single-view COMPARISON: 05/11/2023 FINDINGS: Perihilar interstitial densities are somewhat more pronounced than previous and may represent peribronchial inflammatory changes with subtle vascular congestion not excluded but probably less likely. No dense consolidation, effusion or pneumothorax. IMPRESSION: Mild peribronchial inflammatory changes versus vascular congestion. ED COURSE/MEDICAL DECISION MAKING Differential diagnosis included but not limited to gastroenteritis, medication side effect, gastritis, SBO, dehydration Patient's medical records were reviewed. Pt is a 68yo female presenting to the ED c/o periumbilical abdominal pain and N/V/D that started yesterday. She denies eating anything that could have caused her to be sick and she denies recent sickcontacts. She states she started Mounjaro 4 weeks ago and had her last shot 6 days ago. She has hadno issues with it and is unsure if this is causing her symptoms. She denies fever. She states she also has mild urinary frequency and has a hx of recurrent UTIs. No other complaints reported. On exam, she has periumbilical tenderness. Lab work shows elevated glucose but no leukocytosis. UA is positive for mild infection but is slightly contaminated. CT abd/pelvis shows no acute findings. I gave her IV fluids and several rounds of pain medication and she is still hurting but it has improved some. Did discuss going home with a prescription for pain medication but pt states she does not think this will be able to control her pain at home because even after Morphine and Dilaudid, she is still about a 7/10 on pain. I spoke with Dr. Mcguire, hospitalist, who accepts pt for admission for pain c ontrol. Procedures FINAL IMPRESSION Abdominal pain Nausea and vomiting, unspecified vomiting type DISPOSITION: Admit All findings were discussed with patient. Pt agreeable with plan. PATIENT INSTRUCTED TO FOLLOW UP No follow-up [...] 25 mg tablet Commonly known as: ELAVIL 25 mg, Nightly exemestane 25 mg tablet Doctor's comments: To replace lost bottle of medicine Commonly known as: AROMASIN 25 mg, oral, Nightly hydroCHLOROthiazide 12.5 mg capsule Commonly known as: MICROZIDE 12.5 mg, oral, Daily HYDROcodone-acetaminophen 7.5-325 mg per tablet Commonly known as: NORCO 1 tablet, oral, Every 6 hours hydrOXYzine 10 mg tablet Commonly known as: ATARAX 10 mg, oral, 2 times daily PRN insulin glargine 100 unit/mL vial for injection Commonly known as: LANTUS, SEMGLEE 40 Units, subcutaneous, Daily, Takes in the morning insulin lispro 100 unit/mL vial for injection Commonly known as: HumaLOG, ADMELOG 12 Units, subcutaneous, 3 times daily before meals HumaLOG 100 unit/mL pen for injection Generic drug: insulin lispro No dose, route, or frequency recorded. methenamine 1 gram tablet Commonly known as: HIPREX 1,000 mg, oral, 2 times daily methocarbamoL 500 mg tablet Commonly known as: ROBAXIN 500 mg, oral, 2 times daily naloxone 4 mg/actuation spray,non-aerosol Commonly known as: NARCAN OneTouch Ultra Test strip Generic drug: blood glucose diagnostic 4 times daily oxyBUTYnin XL 10 mg 24 hr tablet Commonly known as: DITROPAN-XL TAKE 1 TABLET BY MOUTH EVERY DAY FOR OVERACTIVE BLADDER rivaroxaban 20 mg tablet Commonly known as: Xarelto 20 mg, oral, Daily rOPINIRole 5 mg tablet Commonly known as: REQUIP 5 mg, oral, Nightly This examination was transcribed using the [employer] voice recognition system without human topper press operator. In an effort to expedite patient care, this report has not been adjusted for typographical, grammatical, and syntax by a trained medical laboratory technical officer. Yesi Rivera PA 08/14/23 1757 Cosigned by Jamia Rangel DO at 08/14/2023 5:59 PM CDT Associated attestation - Jamia Rangel DO - 08/14/2023 5:59 PM CDT The APC independently evaluated the patient and completed their own examination, documentation, anddisposition. I was available for immediate consultation and in-person evaluation if required but was not asked to do so. * Aislinn Holguin RN - 08/14/2023 12:01 PM CDT Patient endorses mid abdominal pain, nausea, vomiting and diarrhea since last night. Also complainsof urinary symptoms. Patient states she has been taking Mounjaro x 4 weeks. documented in this encounter Miscellaneous Notes * Plan of Care - Ricarda Albert RN - 08/18/2023 9:50 AM CDT Goals: Clinical goals for this shift: Control pain, monitor labs and VS, maintain pt comfort and safety, Pt expects to discharge home today Problem: Lack of Knowledge Goal: Ability to develop a pain control plan will improve Outcome: Progressing Problem: Medication Goal: Satisfaction with pain management medication regimen will improve Outcome: Progressing Problem: Sensory Goal: Ability to identify factors that increase pain levels will improve while working to decrease the patient's pain levels Outcome: Progressing Problem: Coping Goal: Ability to cope will improve Outcome: Progressing Problem: Health Behavior Goal: Identification of resources available to assist in meeting health care needs will improve Outcome: Progressing Problem: Discharge Planning Goal: Understanding discharge needs will improve Outcome: Progressing Problem: Fall Risk Goal: Ability to state ways to decrease the risk of falls will improve Outcome: Progressing Goal: Will remain free from falls Outcome: Progressing Goal: Will remain free from injury from falls Outcome: Progressing * Tiffany of Care - Jolie Kelley RN - 08/18/2023 5:58 AM CDT Problem: Lack of Knowledge Goal: Ability to develop a pain control plan will improve Outcome: Progressing Problem: Medication Goal: Satisfaction with pain management medication regimen will improve Outcome: Progressing Problem: Sensory Goal: Ability to identify factors that increase pain levels will improve while working to decrease the patient's pain levels Outcome: Progressing Problem: Coping Goal: Ability to cope will improve Outcome: Progressing Problem: Health Behavior Goal: Identification of resources available to assist in meeting health care needs will improve Outcome: Progressing Problem: Discharge Planning Goal: Understanding discharge needs will improve Outcome: Progressing Problem: Fall Risk Goal: Ability to state ways to decrease the risk of falls will improve Outcome: Progressing Goal: Will remain free from falls Outcome: Progressing Goal: Will remain free from injury from falls Outcome: Progressing Goals: VS monitoring, pain management, safety. Summary: Assessment of patient???s baseline is established at the beginning of the shift in flowsheets. Patient reassessed per order, unexpected findings and/or deviations from baseline are captured in flowsheets. Frequent safety checks and comfort rounds provided. Orders and/or nursing care completed as indicated. Patient monitored for response to interventions and treatments as documented in flowsheets. * Plan of Care - Freda Green RN - 08/17/2023 8:00 AM CDT Problem: Lack of Knowledge Goal: Ability to develop a pain control plan will improve Outcome: Progressing Problem: Medication Goal: Satisfaction with pain management medication regimen will improve Outcome: Progressing Problem: Sensory Goal: Ability to identify factors that increase pain levels will improve while working to decrease the patient's pain levels Outcome: Progressing Problem: Coping Goal: Ability to cope will improve Outcome: Progressing Problem: Health Behavior Goal: Identification of resources available to assist in meeting health care needs will improve Outcome: Progressing Problem: Discharge Planning Goal: Understanding discharge needs will improve Outcome: Progressing Problem: Fall Risk Goal: Ability to state ways to decrease the risk of falls will improve Outcome: Progressing Goal: Will remain free from falls Outcome: Progressing Goal: Will remain free from injury from falls Outcome: Progressing * Plan of Care - Jolie Kelley RN - 08/17/2023 6:06 AM CDT Problem: Lack of Knowledge Goal: Ability to develop a pain control plan will improve Outcome: Progressing Problem: Medication Goal: Satisfaction with pain management medication regimen will improve Outcome: Progressing Problem: Sensory Goal: Ability to identify factors that increase pain levels will improve while working to decrease the patient's pain levels Outcome: Progressing Problem: Coping Goal: Ability to cope will improve Outcome: Progressing Problem: Health Behavior Goal: Identification of resources available to assist in meeting health care needs will improve Outcome: Progressing Goals: VS monitoring, pain management, safety. Summary: Assessment of patient???s baseline is established at the beginning of the shift in flowsheets. Patient reassessed per order, unexpected findings and/or deviations from baseline are captured in flowsheets. Frequent safety checks and comfort rounds provided. Orders and/or nursing care completed as indicated. Patient monitored for response to interventions and treatments as documented in flowsheets. . * Provider Query - Teressa Wilkins MD - 08/16/2023 1:15 PM CDT Please specify the TYPE and ACUITY of Heart Failure, and document in the medical record and on the form below. _x__ Chronic (Compensated) Diastolic ___ Other, specify below Additional Provider Response: Clinical Indicators/Treatments: Hx of CHF noted , need clarification please Echo 09/13/21 : Ejection Fraction = 55-60%. Grade I diastolic dysfunction, (abnormal relaxation pattern) Treatment: home med hctz H&P by Ruben Quiros at 08/14/2023 20:03 CHF (congestive heart failure) References: CHF Diagnostic Criteria CHF The commonly used [place] Diagnostic Criteria for Heart Failure requires the presence of 2 major criteria or 1 major and 2 minor criteria to make the diagnosis of heart failure. MAJOR CRITERIA MINOR CRITERIA Acute Pulmonary Edema Cardiomegaly Hepatojugular Reflux Neck Vein Distention Paroxysmal Nocturnal Dyspnea/Orthopnea Ankle Edema Dyspnea on Exertion Hepatomegaly Nocturnal Cough Pleural Effusion Tachycardia: HR>120 bpm This diagnostic tool is highly sensitive for the diagnosis of heart failure but has a relatively low specificity There is no single, noninvasive diagnostic test that serves as a gold standard for HF, since it is largely a clinical diagnosis based upon a careful history, physical examination, laboratory, and imaging data. Diastolic dysfunction or systolic dysfunction without mention of heart failure is not considered heart failure. If a provider believes patient has CHF in the absence of above clinical indicators, please documentrationale and clinical impression in detail. If acute or acute/chronic CHF is suspected and no IV diuretics are provided, please provide detailed rationale regarding acuity. General CHF Documentation Practices To be reported accurately, all instances of CHF require documentation of both ACUITY and TYPE Acuity: Acute-- rapid onset of new or worsening signs and symptoms of HF Chronic Acute on Chronic (may also be documented as ???exacerbated?? or ???decompensated?? ) Type: Systolic Includes HFrEF (LVEF </= 40%) and HFmrEF (LVEF 40-49%) Diastolic (or HFpEF)--LVEF >/= 50% with consistent findings on echo or an elevated LVEDP in the presence of a normal or reduced LVEDV on cardiac catheterization Combined systolic and diastolic Right-sided HF-- may be due to systolic left-sided HF, RV cardiomyopathy, valvular disease or lung disease such as pulmonary HTN, PE, or COPD Document any of the following if applicable: Biventricular failure End stage heart failure (AHA/ACC classification stage D) Left ventricular heart failure Rheumatic heart failure CHF References: Heart failure: Clinical manifestations and diagnosis in adults - UpToDate The epidemiology of congestive heart failure: the [place] Heart Study perspective - [facility] (nih.gov) Congestive Heart Failure - StatPearls - [facility] (nih.gov) Acute Heart Failure: Definition, Classification and Epidemiology - [facility] (nih.gov) From the ICD-10-CM Coding Guidelines, use of terms such as likely, suspected, possible, or probable(associated with a specific diagnosis that is being evaluated, monitored, or treated as if it exists) are acceptable and can be coded in the inpatient setting when documented at the time of discharge. This documentation will become part of the patient???s medical record. Sincerely, Joanie San RN BSN * Provider Query - Teressa Wilkins MD - 08/16/2023 1:15 PM CDT Specify a diagnosis that reflects the patient???s level of strength and mobility on admission, and document in the medical record and on the form below. Select all that apply: _x__Age related physical debility (frailty) ___Limitation of activity due to disability ___Reduced Mobility ___Other, specify below Additional Provider Response: Clinical Indicators/Treatments: Per 08/14 PT note: Home Mobility Equipment-Currently Using Wheeled walker;Single point cane (cane inside home, walker outside home) Level of [place] Needs assistance with homemaking;Needs assistance with ADLs;Independent with ambulation;Independent functional transfers Receives Help From Spouse/Significant other;Family (daughter is paid caregiver) Active Problems : Mobility References: General Debility and Chronic Fatigue Documentation Practices To accurately represent patient acuity under CMS risk-adjustment methodology, please consider and document the following diagnoses, when applicable. Age-related physical debility Postviral fatigue syndrome Consider in patients with excessive and persistent fatigue following a viral illness, such as COVID-19 Myalgic encephalopmyelitis/chronic fatigue syndrome Other post-infection and related fatigue syndromes Neoplastic related fatigue The only diagnostic criteria is if the patient reports fatigue. May also report weariness, malaise,apathy, lassitude, or burnout. Characterized by excessive and persistent exhaustion that is disproportionate to the task done, often interfering with daily activity. Exhibited in 70-100% of patients with cancer. Often begins prior to diagnosis, worsens during treatment, and may persist for months or years after treatment ends Functional Quadriplegia Chronic fatigue Limitation of activities due to disability Bed confinement status Other reduced mobility Applicable to those with impaired mobility, requiring dependence on care providers. May require extensive PT/OT, martha lifts, mobility devices/aids, etc. Debility References Functional Quadriplegia. ICD-9-CM Coding Clinic, 2007 Page: 143 Effective with discharges: January [facility]: Cancer Fatigue From the ICD-10-CM Coding Guidelines, use of terms such as likely, suspected, possible, or probable(associated with a specific diagnosis that is being evaluated, monitored, or treated as if it exists) are acceptable and can be coded in the inpatient setting when documented at the time of discharge. This documentation will become part of the patient???s medical record. Sincerely, Joanie San RN BSN * Plan of Care - Freda Green RN - 08/16/2023 8:20 AM CDT Problem: Lack of Knowledge Goal: Ability to develop a pain control plan will improve Outcome: Progressing Problem: Medication Goal: Satisfaction with pain management medication regimen will improve Outcome: Progressing Problem: Sensory Goal: Ability to identify factors that increase pain levels will improve while working to decrease the patient's pain levels Outcome: Progressing Problem: Coping Goal: Ability to cope will improve Outcome: Progressing Problem: Health Behavior Goal: Identification of resources available to assist in meeting health care needs will improve Outcome: Progressing Problem: Discharge Planning Goal: Understanding discharge needs will improve Outcome: Progressing * Plan of Care - Jolie Kelley RN - 08/16/2023 5:59 AM CDT Problem: Lack of Knowledge Goal: Ability to develop a pain control plan will improve Outcome: Progressing Problem: Medication Goal: Satisfaction with pain management medication regimen will improve Outcome: Progressing Problem: Sensory Goal: Ability to identify factors that increase pain levels will improve while working to decrease the patient's pain levels Outcome: Progressing Problem: Coping Goal: Ability to cope will improve Outcome: Progressing Problem: Health Behavior Goal: Identification of resources available to assist in meeting health care needs will improve Outcome: Progressing Problem: Discharge Planning Goal: Understanding discharge needs will improve Outcome: Progressing Goals: VSS, rest, safety, monitor oxygenation, pain control, prevent skin breakdown. Summary: : Assessment of patient???s baseline is established at the beginning of the shift in flowsheets. Patient reassessed per order, unexpected findings and/or deviations from baseline are captured in flowsheets. Frequent safety checks and comfort rounds provided. Orders and/or nursing care completed as indicated. Patient monitored for response to interventions and treatments as documented in flowsheets. . * Plan of Care - Melani Adamson RN - 08/15/2023 6:32 PM CDT Goals: Manage pain, safety, stable VS Problem: Lack of Knowledge Goal: Ability to develop a pain control plan will improve Outcome: Progressing Problem: Coping Goal: Ability to cope will improve Outcome: Progressing Problem: Discharge Planning Goal: Understanding discharge needs will improve Outcome: Progressing Summary: Assessment of patient???s baseline is established at the beginning of the shift in flowsheets. Patient reassessed per order, unexpected findings and/or deviations from baseline are captured in flowsheets. Frequent safety checks and comfort rounds provided. Orders and/or nursing care completed as indicated. Patient monitored for response to interventions and treatments as documented in flowsheets. * Initial Assessments - Kelli Tan RN - 08/15/2023 12:38 PM CDT CM Initial Assessment Interview Note Information Obtained From: Patient (08/15/23 2190) Admission Source: ED from home Impression: Presented with N/V and abd pain. Admitted with cystitis complicated by multiple antibiotic allergies. ID to see. Plan Includes: Independent from home with spouse, plans to return home with spouse at d/c at this time. Primary Source of Transportation: Does the patient need discharge transport arranged?: No (spouse will transport) Has discharge transport been arranged?: No (08/15/23 1237) Health Insurance Coverage: [facility] Prescription Coverage: IDPA spend down Pharmacy: [id number] - [place], [place] - [address] AT [facility] [address] [facility] [address] [id number] - [place], [place] - [address] AT [facility] ([place] [address]) & [address] [facility] [address] Primary Care Provider: Justen Gale MD Prior to Admission: Functional Status: Independent with ADLs Primary Caregiver: Self Support System: Spouse/Significant Other, Children Home Care Services: No Outpatient Services: No Durable Medical Equipment: CPAP/Bi-PAP Living Arrangements: Spouse/significant other Type of Residence: Private residence Steps in home?: No steps inside or outside (08/14/232014) Behavioral Health Services: Behavioral Health Services: No (08/15/23 1237) Patient expects to be Discharged to: Private residence, (08/15/23 1237) Patient's Identified Problem/Goal Problem: Ensure acute medical needs are met and that patient has a safe discharge plan. Goal: Secure a discharge plan that patient/family are agreeable with and ensure patient has continuum of care. Case management will follow for discharge planning and send referrals as needed. Kelli Tan RN * Plan of Care - Jolie Kelley RN - 08/15/2023 1:36 AM CDT Problem: Lack of Knowledge Goal: Ability to develop a pain control plan will improve Outcome: Progressing Problem: Medication Goal: Satisfaction with pain management medication regimen will improve Outcome: Progressing Problem: Sensory Goal: Ability to identify factors that increase pain levels will improve while working to decrease the patient's pain levels Outcome: Progressing Problem: Coping Goal: Ability to cope will improve Outcome: Progressing Problem: Health Behavior Goal: Identification of resources available to assist in meeting health care needs will improve Outcome: Progressing Problem: Discharge Planning Goal: Understanding discharge needs will improve Outcome: Progressing Goals: VS monitoring, pain management, IV hydration, safety. Summary: Pt admitted with c/o abdominal pain , possible cystitis for IV antibiotic treatment and hydration. ID will consult in the morning. VSS, on room air, ambulatory. Chronic back and BLE pain well controlled. Will continue to care. documented in this encounter Plan of Treatment Pending Results Name Type Priority Associated Diagnoses Date /Time Magnesium Lab Routine 08/15/2023 5:3 8 AM CDT Scheduled Orders Name Type Priority Associated Diagnoses Orde r Schedule Magnesium Lab Routine Once for 1 Occ urrences starting 08/15/2023 until 08/15/2023 Scheduled Referrals Name Type Priority Associated Diagnoses Orde r Schedule Ambulatory referral to Gastroenterology Outpatient Referral Routine Abdominal pain Nausea and vomiting, unspecified vomiting type Type 2 diabetes mellitus without complication, with long-term current use of insulin ([facility]) (HCC) Diabetic gastroparesis ([facility]) ([facility]) Expected: 09/01/2023 (Approximate), Expires: 08/17/2024 Ambulatory referral to Allergy and Immunology Outpatient Referral Routine Allergy to drug Multiple drug allergies Expected: 09/01/2023 (Approximate), Expires: 08/17/2024 documented as of this encounter Procedures Procedure Name Priority Date/Time Associated Diagnosis Comments POCT GLUCOSE DEVICE Routine 08/18/2023 1 1:40 AM CDT POCT GLUCOSE DEVICE Routine 08/18/2023 8:20 AM CDT POCT GLUCOSE DEVICE Routine 08/17/2023 8 :50 PM CDT POCT GLUCOSE DEVICE Routine 08/17/2023 4 :53 PM CDT US VEIN DUPLEX LOWER EXTREMITY LEFT LIMITED IP Routine 08/17/2023 3:58 PM CDT POCT GLUCOSE DEVICE Routine 08/17/2023 1 1:59 AM CDT POCT GLUCOSE DEVICE Routine 08/17/2023 8 :39 AM CDT EGFR Routine 08/17/2023 7:24 AM CDT DIFFERENTIAL AUTO Routine 08/17/2023 7:2 4 AM CDT CBC WITH AUTO DIFFERENTIAL Routine 08/17/2023 7:24 AM CDT BASIC METABOLIC PANEL Routine 08/17/2023 7:24 AM CDT POCT GLUCOSE DEVICE Routine 08/16/2023 7 :53 PM CDT POCT GLUCOSE DEVICE Routine 08/16/2023 4 :57 PM CDT POCT GLUCOSE DEVICE Routine 08/16/2023 1 2:34 PM CDT POCT GLUCOSE DEVICE Routine 08/16/2023 8 :28 AM CDT EGFR Routine 08/16/2023 4:48 AM CDT DIFFERENTIAL AUTO Routine 08/16/2023 4:4 8 AM CDT CBC WITH AUTO DIFFERENTIAL Routine 08/16/2023 4:48 AM CDT BASIC METABOLIC PANEL Routine 08/16/2023 4:48 AM CDT POCT GLUCOSE DEVICE Routine 08/15/2023 4 :13 PM CDT POCT GLUCOSE DEVICE Routine 08/15/2023 1 1:52 AM CDT POCT GLUCOSE DEVICE Routine 08/15/2023 9 :12 AM CDT EGFR Routine 08/15/2023 5:38 AM CDT DIFFERENTIAL AUTO Routine 08/15/2023 5:3 8 AM CDT CBC WITH AUTO DIFFERENTIAL Routine 08/15/2023 5:38 AM CDT BLOOD CULTURE STAT 08/15/2023 5:38 AM CDT MAGNESIUM Routine 08/15/2023 5:38 AM CDT BASIC METABOLIC PANEL Routine 08/15/2023 5:38 AM CDT LACTATE Routine 08/14/2023 8:47 PM CDT THYROID FUNCTION CASCADE Routine 08/14/2023 8:47 PM CDT IRON PROFILE W/ IBC Routine 08/14/2023 8 :47 PM CDT BLOOD CULTURE STAT 08/14/2023 8:47 PM CDT APTT Routine 08/14/2023 8:47 PM CDT ERYTHROCYTE SEDIMENTATION RATE Routine 08/14/2023 8:47 PM CDT PROTIME-INR Routine 08/14/2023 8:47 PM CDT CRP (ACUTE PHASE) Routine 08/14/2023 8:4 7 PM CDT PHOSPHORUS Routine 08/14/2023 8:47 PM CDT MAGNESIUM Routine 08/14/2023 8:47 PM CDT HEMOGLOBIN A1C Routine 08/14/2023 8:47 PM CDT FERRITIN Routine 08/14/2023 8:47 PM CDT VITAMIN B12 Routine 08/14/2023 8:47 PM CDT LIPID PANEL Routine 08/14/2023 8:47 PM CDT POCT GLUCOSE DEVICE Routine 08/14/2023 8 :28 PM CDT SEPSIS LACTATE WITH REFLEX Add-On 08/14/2023 5:49 PM CDT POCT GLUCOSE DEVICE Routine 08/14/2023 5 :37 PM CDT XR CHEST 1 VIEW ED 08/14/2023 4:[address] ABDOMEN PELVIS W CONTRAST ED 08/14/2023 2:12 PM CDT URINALYSIS AND REFLEX TO MICROSCOPIC AND CULTURE STAT 08/14/2023 12:30 PM CDT URINALYSIS, MICROSCOPIC ONLY STAT 08/14/2023 12:30 PM CDT URINE CULTURE STAT 08/14/2023 12:30 PM CDT EGFR STAT 08/14/2023 12:20 PM CDT DIFFERENTIAL AUTO STAT 08/14/2023 12: 20 PM CDT CBC WITH AUTO DIFFERENTIAL STAT 08/14/2023 12:20 PM CDT LIPASE STAT 08/14/2023 12:20 PM CDT COMPREHENSIVE METABOLIC PANEL STAT 08/14/2023 12:20 PM CDT documented in this encounter Results * (ABNORMAL) POCT glucose (08/18/2023 11:40 AM CDT) [facility] Glucose, POC 210(H) 70 - 199 mg/dL Comment:Testing performed by : [address] [id number] Blood 08/18/2023 11:4 0 AM CDT 08/18/2023 11:40 AM CDT Teressa Mendes MD LAB POCT ORDERABLES - DEVICE Final Result Performing Organization Address [facility] Co de Phone Number MARY JANE [address] [place] [address] * POCT glucose (08/18/2023 8:20 AM CDT) Glucose, POC 163 70 - 199 mg/dL Comment:Testing performed by : [address] [address] Blood 08/18/2023 8:20 AM CDT 08/18/2023 8:20 AM CDT Teressa Mendes MD LAB POCT ORDERABLES - DEVICE Final Result Performing Organization Address [facility] de Phone Number [address] [address] * POCT glucose (08/17/2023 8:50 PM CDT) Glucose, POC 151 70 - 199 mg/dL Comment:Testing performed by : [address] [address] Glucose comment 1 Use This Result MARY JANE Comment:Testing performed by : [address] [address] Blood 08/17/2023 8:50 PM CDT 08/17/2023 8:50 PM CDT Teressa Mendes MD LAB POCT ORDERABLES - DEVICE Final Result Performing Organization Address [facility]/ZIP Co de Phone Number [place] [phone] [facility] [place] [address] * POCT glucose (08/17/2023 4:53 PM CDT) Glucose, POC 181 70 - 199 mg/dL Comment:Testing performed by : [facility], [address] [place] [address]., [id number] Blood 08/17/2023 4:53 PM CDT 08/17/2023 4:53 PM CDT Teressa Mendes MD LAB POCT ORDERABLES - DEVICE Final Result MARY JANE [facility] [place] [address] * US VEIN DUPLEX LOWER EXTREMITY LEFT LIMITED, UNILATERAL (08/17/2023 3:58 PM CDT) Anatomical Region Laterality Modality Vascular Left Ultrasound 08/17/2023 Narrative 08/21/2023 2:58 PM CDT [email or web address] Job ID: [id number] [email or web address] Document ID: [id number] Dictated date/time: [id number] REASON FOR STUDY Left calf pain. ?? No thrombus seen in the left common femoral, femoral, popliteal, posterior tibial, peroneal or greater saphenous veins. IMPRESSION No evidence of deep venous thrombosis in the left lower extremity. Job ID/Internal Job ID: ??[id number] us Teressa Mendes MD [facility] GA OCEDURES Final Result * (ABNORMAL) POCT glucose (08/17/2023 11:59 AM CDT) Glucose, POC 209(H) 70 - 199 mg/dL Comment:Testing performed by : [facility], [address] [place] [address]., [id number] Blood 08/17/2023 11:5 9 AM CDT 08/17/2023 11:59 AM CDT Teressa Mendes MD LAB POCT ORDERABLES - DEVICE Final Result Performing Organization Address [facility] de Phone Number [address] [place] [address] * POCT glucose (08/17/2023 8:39 AM CDT) [facility] Glucose, POC 141 70 - 199 mg/dL Comment:Testing performed by : [facility], [address] [place] [address]., [id number] Blood 08/17/2023 8:39 AM CDT 08/17/2023 8:39 AM CDT Teressa Mendes MD LAB POCT ORDERABLES - DEVICE Final Result Performing Organization Address [facility] Phone Number [address] [place] [address] * eGFR (08/17/2023 7:24 AM CDT) [facility] eGFR >90 >=60 mL/min/1. 73 m2 Comment: [...] was last reviewed 2021. Testing performed by: [address] [address] Blood 08/17/2023 7:24 AM CDT 08/17/2023 8:23 AM CDT us Philippe Mcguire MD LAB BLOOD ORDERABLES Final Result MARY JANE [facility] Department [place] [address] * Differential, auto (08/17/2023 7:24 AM CDT) Neutrophil abs 3.9 1.5 - 6.5 K/cumm Comment:Testing performed by : [address] [address] Imm gran abs 0.0 0.0 - 0.1 K/cumm MARY JANE Comment:Testing performed by : [address] [address] Lymphocyte abs 2.3 0.8 - 3.3 K/cumm MARY JANE Comment:Testing performed by : [address] [address] Monocyte abs 0.6 0.2 - 0.8 K/cumm MARY JANE Comment:Testing performed by : [address] [address] Eosinophil abs 0.3 0.0 - 0.5 K/cumm MARY JANE Comment:Testing performed by : [address] [address] Basophil abs 0.0 0.0 - 0.1 K/cumm MARY JANE Comment:Testing performed by : [address] [address] Neutrophil pct 53.6 % CERNER Comment: Interpretive Data Percent cell count reference ranges are not reported, since discordance with absolute values may lead to misinterpretation of CBC data. Current Interpretive Data was last revised on 2017. Testing performed by: [address] [address] Imm gran pct 0.3 % [facility] Comment: Interpretive Data Percent cell count reference ranges are not reported, since discordance with absolute values may lead to misinterpretation of CBC data. Current Interpretive Data was last revised on 2017. Testing performed by: [address] [address] Lymphocyte pct 32.4 % [facility] Comment: Interpretive Data Percent cell count reference ranges are not reported, since discordance with absolute values may lead to misinterpretation of CBC data. Current Interpretive Data was last revised on 2017. Testing performed by: [address] [address] Monocyte pct 8.9 % CERNER Comment: Interpretive Data Percent cell count reference ranges are not reported, since discordance with absolute values may lead to misinterpretation of CBC data. Current Interpretive Data was last revised on 2017. Testing performed by: [address] [address] Eosinophil pct 4.5 % CERNER Comment: Interpretive Data Percent cell count reference ranges are not reported, since discordance with absolute values may lead to misinterpretation of CBC data. Current Interpretive Data was last revised on 2017. Testing performed by: [address] [address] Basophil pct 0.3 % CERNER Comment: Interpretive Data Percent cell count reference ranges are not reported, since discordance with absolute values may lead to misinterpretation of CBC data. Current Interpretive Data was last revised on 2017. Testing performed by: [address] [address] Blood 08/17/2023 7:24 AM CDT 08/17/2023 8:24 AM CDT us Philippe Mcguire MD LAB BLOOD ORDERABLES Final Result MARY JANE [address] [facility] Department of Laboratories [place], [place] [id number] * (ABNORMAL) CBC with auto differential (08/17/2023 7:24 AM CDT) [facility] Signature WBC 7.2 3.8 - 9.9 K/cumm Comment:Testing performed by : [address] [address] Hgb 12.2 11.9 - 15.5 g/dL MARY JANE Comment:Testing performed by : [address] [address] Hct 39.1 35.6 - 45.5 % MARY JANE Comment:Testing performed by : [address] [address] Plt 242 150 - 400 K/cumm MARY JANE Comment:Testing performed by : [address] [address] MPV 9.9 9.1 - 12.3 fL MARY JANE Comment:Testing performed by : [address] [address] RBC 4.29 3.90 - 5.20 M/cumm MARY JANE Comment:Testing performed by : [address] [address] MCV 91.1 81.3 - 96.4 fL MARY JANE Comment:Testing performed by : [address] [address] MCH 28.4 27.1 - 33.3 pg MARY JANE Comment:Testing performed by : [address] [address] MCHC 31.2(L) 32.3 - 35.7 g/dL MARY JANE Comment:Testing performed by : [address] [address] RDW CV 13.4 11.1 - 14.9 % MARY JANE Comment:Testing performed by : [address] [address] RDW SD 45.2 35.7 - 48.1 fL MARY JANE PHAM Comment:Testing performed by : [address] [address] NRBC abs 0.00 0.00 - 0.01 K/cumm MARY JANE PHAM Comment:Testing performed by : [address] [address] Blood 08/17/2023 7:24 AM CDT 08/17/2023 8:24 AM CDT Philippe Mcguire MD LAB BLOOD ORDERABLES Final Result MARY JANE PHAM [address] [place] [address] Department [place] [address] * (ABNORMAL) Basic metabolic panel (08/17/2023 7:24 AM CDT) Sodium 139 135 - 145 mmol/L Comment:Testing performed by : [address] [address] Potassium, pl 3.8 3.3 - 4.9 mmol/L MARY JANE PHAM Comment:Testing performed by : [address], [address] Chloride 101 97 - 110 mmol/L MARY JANE Comment:Testing performed by : [address], [address] CO2 29 22 - 32 mmol/L MARY JANE Comment:Testing performed by : [address] [address] Anion gap 9 2 - 15 mmol/L MARY JANE Comment:Testing performed by : [address] [address] BUN 7 6 - 25 mg/dL MARY JANE Comment:Testing performed by : [address] [address] Creatinine 0.50(L) 0.60 - 1.10 mg/dL MARY JANE Comment:Testing performed by : [address] [address] Glucose 141 70 - 199 mg/dL MARY JANE PHAM Comment: Interpretive Data Fasting glucose >/= 126 [...] was last revised 2022. Testing performed by: [address] [address] Calcium 9.2 8.5 - 10.3 mg/dL MARY JANE Comment:Testing performed by : [address] [address] Blood 08/17/2023 7:24 AM CDT 08/17/2023 8:23 AM CDT us Philippe Mcguire MD LAB BLOOD ORDERABLES Final Result [facility] [address] [facility] Department [place] [address] * POCT glucose (08/16/2023 7:53 PM CDT) [facility] Glucose, POC 168 70 - 199 mg/dL Comment:Testing performed by : [address] [address] Glucose comment 1 Use This Result MARY JANE Comment:Testing performed by : [address] [address] Glucose comment 2 RN/MD Notified MARY JANE Comment:Testing performed by : [address] [address] Blood 08/16/2023 7:53 PM CDT 08/16/2023 7:53 PM CDT us Teressa Mendes MD LAB POCT ORDERABLES - DEVICE Final Result Performing Organization Address [facility] de Phone Number [address] [address] * POCT glucose (08/16/2023 4:57 PM CDT) Glucose, POC 151 70 - 199 mg/dL Comment:Testing performed by : [address] [address] Blood 08/16/2023 4:57 PM CDT 08/16/2023 4:57 PM CDT Teressa Mendes MD LAB POCT ORDERABLES - DEVICE Final Result Performing Organization Address [facility] Co de Phone Number [address] [place] [employer] [address] * POCT glucose (08/16/2023 12:34 PM CDT) Glucose, POC 169 70 - 199 mg/dL Comment:Testing performed by : [address] [address] Blood 08/16/2023 12:3 4 PM CDT 08/16/2023 12:34 PM CDT us Teressa Mendes MD LAB POCT ORDERABLES - DEVICE Final Result Performing Organization Address [facility] de Phone Number [address] [address] * POCT glucose (08/16/2023 8:28 AM CDT) Glucose, POC 144 70 - 199 mg/dL Comment:Testing performed by : [address] [address] Blood 08/16/2023 8:28 AM CDT 08/16/2023 8:28 AM CDT us Teressa Mendes MD LAB POCT ORDERABLES - DEVICE Final Result Performing Organization Address [facility] Co de Phone Number MARY JANE [address] [facility] Department [place] [address] * eGFR (08/16/2023 4:48 AM CDT) eGFR >90 >=60 mL/min/1. 73 [...] was last reviewed 2021. Testing performed by: [facility], [address] [place] [address]., [address] Blood 08/16/2023 4:48 AM CDT 08/16/2023 5:50 AM CDT us Philippe Mcguire MD LAB BLOOD ORDERABLES Final Result Performing Organization Address [facility] Co de Phone Number MARY JANE [address] [facility] Department [place] [address] * Differential, auto (08/16/2023 4:48 AM CDT) Neutrophil abs 3.7 1.5 - 6.5 K/cumm Comment:Testing performed by : [address] [address] Imm gran abs 0.0 0.0 - 0.1 K/cumm MARY JANE Comment:Testing performed by : [address] [address] Lymphocyte abs 2.4 0.8 - 3.3 K/cumm MARY JANE Comment:Testing performed by : [address] [address] Monocyte abs 0.6 0.2 - 0.8 K/cumm MARY JANE Comment:Testing performed by : [address] [address] Eosinophil abs 0.4 0.0 - 0.5 K/cumm MARY JANE Comment:Testing performed by : [address] [address] Basophil abs 0.0 0.0 - 0.1 K/cumm MARY JANE Comment:Testing performed by : [address] [address] Neutrophil pct 52.3 % MARY JANE Comment: Interpretive Data Percent cell count reference ranges are not reported, since discordance with absolute values may lead to misinterpretation of CBC data. Current Interpretive Data was last revised on 2017. Testing performed by: [address] [address] Imm gran pct 0.3 % MARY JANE Comment: Interpretive Data Percent cell count reference ranges are not reported, since discordance with absolute values may lead to misinterpretation of CBC data. Current Interpretive Data was last revised on 2017. Testing performed by: [address] [address] Lymphocyte pct 33.7 % MARY JANE Comment: Interpretive Data Percent cell count reference ranges are not reported, since discordance with absolute values may lead to misinterpretation of CBC data. Current Interpretive Data was last revised on 2017. Testing performed by: [address] [address] Monocyte pct 8.3 % MARY JANE Comment: Interpretive Data Percent cell count reference ranges are not reported, since discordance with absolute values may lead to misinterpretation of CBC data. Current Interpretive Data was last revised on 2017. Testing performed by: [address] [address] Eosinophil pct 5.1 % MARY JANE Comment: Interpretive Data Percent cell count reference ranges are not reported, since discordance with absolute values may lead to misinterpretation of CBC data. Current Interpretive Data was last revised on 2017. Testing performed by: [address] [address] Basophil pct 0.3 % MARY JANE Comment: Interpretive Data Percent cell count reference ranges are not reported, since discordance with absolute values may lead to misinterpretation of CBC data. Current Interpretive Data was last revised on 2017. Testing performed by: [address] [address] Blood 08/16/2023 4:48 AM CDT 08/16/2023 5:49 AM CDT us Philippe Mcguire MD LAB BLOOD ORDERABLES Final Result [facility] [address] [facility] Department [place] [address] * (ABNORMAL) CBC with auto differential (08/16/2023 4:48 AM CDT) WBC 7.1 3.8 - 9.9 K/cumm Comment:Testing performed by : [address] [address] Hgb 11.9 11.9 - 15.5 g/dL MARY JANE Comment:Testing performed by : [address] [address] Hct 38.1 35.6 - 45.5 % MARY JANE PHAM Comment:Testing performed by : [address] [address] Plt 236 150 - 400 K/cumm MARY JANE PHAM Comment:Testing performed by : [address] [address] MPV 9.9 9.1 - 12.3 fL MARY JANE PHAM Comment:Testing performed by : [address] [address] RBC 4.20 3.90 - 5.20 M/cumm MARY JANE Comment:Testing performed by : [address] [address] MCV 90.7 81.3 - 96.4 fL MARY JANE Comment:Testing performed by : [address] [address] MCH 28.3 27.1 - 33.3 pg MARY JANE Comment:Testing performed by : [address] [address] MCHC 31.2(L) 32.3 - 35.7 g/dL MARY JANE Comment:Testing performed by : [address] [address] RDW CV 13.4 11.1 - 14.9 % MARY JANE Comment:Testing performed by : [address] [address] RDW SD 44.4 35.7 - 48.1 fL MARY JANE Comment:Testing performed by : [address] [address] NRBC abs 0.00 0.00 - 0.01 K/cumm MARY JANE PHAM Comment:Testing performed by : [address] [address] Blood 08/16/2023 4:48 AM CDT 08/16/2023 5:49 AM CDT us Philippe Mcguire MD LAB BLOOD ORDERABLES Final Result MARY JANE [address] [facility] Department [place] [address] * (ABNORMAL) Basic metabolic panel (08/16/2023 4:48 AM CDT) Sodium 137 135 - 145 mmol/L Comment:Testing performed by : [address] [address] Potassium, pl 3.7 3.3 - 4.9 mmol/L MARY JANE Comment:Testing performed by : [address] [address] Chloride 102 97 - 110 mmol/L MARY JANE Comment:Testing performed by : [address] [address] CO2 26 22 - 32 mmol/L MARY JANE Comment:Testing performed by : [address] [address] Anion gap 9 2 - 15 mmol/L MARY JANE Comment:Testing performed by : [address] [address] BUN 8 6 - 25 mg/dL MARY JANE Comment:Testing performed by : [address] [address] Creatinine 0.50(L) 0.60 - 1.10 mg/dL MARY JANE Comment:Testing performed by : [address] [address] Glucose 137 70 - 199 mg/dL [facility] Comment: Interpretive Data Fasting glucose >/= 126 [...] was last revised 2022. Testing performed by: [address] [address] Calcium 8.6 8.5 - 10.3 mg/dL MARY JANE Comment:Testing performed by : [address] [place]., [address] Blood 08/16/2023 4:48 AM CDT 08/16/2023 5:50 AM CDT Philippe Mcguire MD LAB BLOOD ORDERABLES Final Result Performing Organization Address [facility] Co de Phone Number MARY JANE [address] [place] [address] * POCT glucose (08/15/2023 4:13 PM CDT) Glucose, POC 131 70 - 199 mg/dL Comment:Testing performed by : [address] [address] Blood 08/15/2023 4:13 PM CDT 08/15/2023 4:13 PM CDT Teressa Mendes MD LAB POCT ORDERABLES - DEVICE Final Result Performing Organization Address [facility] de Phone Number [address] [address] * POCT glucose (08/15/2023 11:52 AM CDT) Glucose, POC 182 70 - 199 mg/dL Comment:Testing performed by : [address] [address] Glucose comment 1 Use This Result MARY JANE Comment:Testing performed by : [address] [address] Blood 08/15/2023 11:5 2 AM CDT 08/15/2023 11:52 AM CDT Teressa Mendes MD LAB POCT ORDERABLES - DEVICE Final Result Performing Organization Address City/[facility] Co de Phone Number [address] [place] [address] * POCT glucose (08/15/2023 9:12 AM CDT) [facility] Glucose, POC 179 70 - 199 mg/dL Comment:Testing performed by : [address] [address] Blood 08/15/2023 9:12 AM CDT 08/15/2023 9:12 AM CDT us Teressa Mendes MD LAB POCT ORDERABLES - DEVICE Final Result Performing Organization Address [facility] Co de Phone Number [address] [place] [address] * (ABNORMAL) Magnesium (08/15/2023 5:38 AM CDT) [facility] Magnesium 1.3(L) 1.4 - 2.5 mg/dL Comment:Testing performed by : [address] [address] Blood 08/15/2023 5:38 AM CDT 08/15/2023 5:45 AM CDT us Teressa Mendes MD LAB BLOOD ORDERABLES Final Result Performing Organization Address [facility] de Phone Number [address] [employer] [place] [address] * eGFR (08/15/2023 5:38 AM CDT) [facility] eGFR >90 >=60 mL/min/1. 73 m2 Comment: [...] was last reviewed 2021. Testing performed by: [address] [address] Blood 08/15/2023 5:38 AM CDT 08/15/2023 5:45 AM CDT us Philippe Mcguire MD LAB BLOOD ORDERABLES Final Result MARY JANE [address] [facility] Department [place] [address] * Differential, auto (08/15/2023 5:38 AM CDT) Neutrophil abs 4.0 1.5 - 6.5 K/cumm Comment:Testing performed by : [address] [address] Imm gran abs 0.0 0.0 - 0.1 K/cumm MARY JANE Comment:Testing performed by : [address] [address] Lymphocyte abs 2.1 0.8 - 3.3 K/cumm MARY JANE Comment:Testing performed by : [address] [address] Monocyte abs 0.5 0.2 - 0.8 K/cumm MARY JANE Comment:Testing performed by : [address] [place]., [address] Eosinophil abs 0.3 0.0 - 0.5 K/cumm [facility] Comment:Testing performed by : [address] [address] Basophil abs 0.0 0.0 - 0.1 K/cumm MARY JANE Comment:Testing performed by : [address] [address] Neutrophil pct 57.3 % [facility] Comment: Interpretive Data Percent cell count reference ranges are not reported, since discordance with absolute values may lead to misinterpretation of CBC data. Current Interpretive Data was last revised on 2017. Testing performed by: [address] [address] Imm gran pct 0.1 % [facility] Comment: Interpretive Data Percent cell count reference ranges are not reported, since discordance with absolute values may lead to misinterpretation of CBC data. Current Interpretive Data was last revised on 2017. Testing performed by: [address] [address] Lymphocyte pct 30.2 % [facility] Comment: Interpretive Data Percent cell count reference ranges are not reported, since discordance with absolute values may lead to misinterpretation of CBC data. Current Interpretive Data was last revised on 2017. Testing performed by: [address] [address] Monocyte pct 7.6 % [facility] Comment: Interpretive Data Percent cell count reference ranges are not reported, since discordance with absolute values may lead to misinterpretation of CBC data. Current Interpretive Data was last revised on 2017. Testing performed by: [address] [address] Eosinophil pct 4.4 % [facility] Comment: Interpretive Data Percent cell count reference ranges are not reported, since discordance with absolute values may lead to misinterpretation of CBC data. Current Interpretive Data was last revised on 2017. Testing performed by: [address] [address] Basophil pct 0.4 % [facility] Comment: Interpretive Data Percent cell count reference ranges are not reported, since discordance with absolute values may lead to misinterpretation of CBC data. Current Interpretive Data was last revised on 2017. Testing performed by: [address] [address] Blood 08/15/2023 5:38 AM CDT 08/15/2023 5:46 AM CDT Philippe Mcguire MD LAB BLOOD ORDERABLES Final Result MARY JANE [address] [facility] Department [place] [address] * (ABNORMAL) CBC with auto differential (08/15/2023 5:38 AM CDT) WBC 7.0 3.8 - 9.9 K/cumm Comment:Testing performed by : [address] [address] Hgb 11.7(L) 11.9 - 15.5 g/dL MARY JANE Comment:Testing performed by : [address] [address] Hct 36.9 35.6 - 45.5 % MARY JANE Comment:Testing performed by : [address] [address] Plt 215 150 - 400 K/cumm MARY JANE Comment:Testing performed by : [address] [address] MPV 9.4 9.1 - 12.3 fL MARY JANE Comment:Testing performed by : [address] [address] RBC 4.05 3.90 - 5.20 M/cumm MARY JANE PHAM Comment:Testing performed by : [address] [address] MCV 91.1 81.3 - 96.4 fL MARY JANE Comment:Testing performed by : [address] [address] MCH 28.9 27.1 - 33.3 pg MARY JANE PHAM Comment:Testing performed by : [address] [address] MCHC 31.7(L) 32.3 - 35.7 g/dL MARY JANE PHAM Comment:Testing performed by : [address] [address] RDW CV 13.5 11.1 - 14.9 % MARY JANE PHAM Comment:Testing performed by : [address] [address] RDW SD 45.1 35.7 - 48.1 fL MARY JANE PHAM Comment:Testing performed by : [address] [address] NRBC abs 0.00 0.00 - 0.01 K/cumm MARY JANE PHAM Comment:Testing performed by : [address] [address] Blood 08/15/2023 5:38 AM CDT 08/15/2023 5:46 AM CDT Philippe Mcguire MD LAB BLOOD ORDERABLES Final Result [facility] [address] [facility] Department of Laboratories [place], [place] [id number] * (ABNORMAL) Basic metabolic panel (08/15/2023 5:38 AM CDT) Sodium 140 135 - 145 mmol/L Comment:Testing performed by : [address] [address] Potassium, pl 3.6 3.3 - 4.9 mmol/L MARY JANE PHAM Comment:Testing performed by : [address] [address] Chloride 105 97 - 110 mmol/L MARY JANE PHAM Comment:Testing performed by : [address] [address] CO2 26 22 - 32 mmol/L MARY JANE PHAM Comment:Testing performed by : [address] [address] Anion gap 9 2 - 15 mmol/L MARY JANE PHAM Comment:Testing performed by : [address] [place]., [address] BUN 11 6 - 25 mg/dL MARY JANE Comment:Testing performed by : [facility], [address] [place] [address]., [address] Creatinine 0.50(L) 0.60 - 1.10 mg/dL MARY JANE Comment:Testing performed by : [facility], [address] [place] [address]., [address] Glucose 157 70 - 199 mg/dL MARY JANE Comment: Delta - Results Reviewed Interpretive Data Fasting glucose >/= 126 mg/dl [...] was last revised 2022. Testing performed by: [facility], [address] [place] [address]., [address] Calcium 8.3(L) 8.5 - 10.3 mg/dL MARY JANE Comment:Testing performed by : [address] [address] Blood 08/15/2023 5:38 AM CDT 08/15/2023 5:45 AM CDT Philippe Mcguire MD LAB BLOOD ORDERABLES Final Result MARY JANE [address] [facility] Department [place] [address] * Blood culture Blood (08/15/2023 5:38 AM CDT) Report Final Report: No growth Comment:Testing performed by : [facility], [address] [facility], [place]., [address] Blood 08/15/2023 5:38 AM CDT 08/15/2023 4:01 PM CDT Narrative MARY JANE - 08/19/2023 12:00 PM CDT Collection->Peripheral 1. ?Blood cultures are incubated for 4 days on a continuously monitored blood culture system. The first report of a negative culture is issued within 24 hours of receipt of the specimen in the laboratory. 2. ?Positive culture results are reported as soon as they are detected. 3. ?The most important factor for detection of microbes in the setting of bloodstream infection is the volume of blood submitted for culture. Failure to collect an optimal blood volume can result in false negative blood cultures. For pediatric patients, the recommended blood volume to collect is 1 mL of blood per year of patient age (up to 20 mL) per blood culture set. For adult patients, 20 mL of blood, divided equally between aerobic and anaerobic blood culture bottles, is recommended for each blood culture set. 4. ?For blood cultures with Gram-positive cocci, a rapid molecular test for organism identification may be performed using the [employer] Gram-Positive Blood Culture Assay. This assay detects microbial DNA in positive blood culture broth via hybridization of target DNA to capture oligonucleotides on a microarray. This assay has been cleared by the [place] Food and Drug Administration and its performance characteristics have been verified by the [facility] Microbiology Laboratory. 5. ?For questions about this culture, contact the Microbiology Laboratory at [phone]. Interpretive data was last revised on 2019. Philippe Mcguire MD LAB MICROBIOLOGY - [facility] ORDERABLES Final Result MARY JANE [address] [facility] Department [place] [address] * Blood culture Blood (08/14/2023 8:47 PM CDT) Report Final Report: No growth Comment:Testing performed by : [facility], [address] [facility], [place]., [address] Blood 08/14/2023 8:47 PM CDT 08/14/2023 11:35 PM CDT Narrative MARY JANE - 08/19/2023 7:00 AM CDT From a different site than #1. Collection->Peripheral 1. ?Blood cultures are incubated for 4 days on a continuously monitored blood culture system. The first report of a negative culture is issued within 24 hours of receipt of the specimen in the laboratory. 2. ?Positive culture results are reported as soon as they are detected. 3. ?The most important factor for detection of microbes in the setting of bloodstream infection is the volume of blood submitted for culture. Failure to collect an optimal blood volume can result in false negative blood cultures. For pediatric patients, the recommended blood volume to collect is 1 mL of blood per year of patient age (up to 20 mL) per blood culture set. For adult patients, 20 mL of blood, divided equally between aerobic and anaerobic blood culture bottles, is recommended for each blood culture set. 4. ?For blood cultures with Gram-positive cocci, a rapid molecular test for organism identification may be performed using the [employer] Gram-Positive Blood Culture Assay. This assay detects microbial DNA in positive blood culture broth via hybridization of target DNA to capture oligonucleotides on a microarray. This assay has been cleared by the [place] Food and Drug Administration and its performance characteristics have been verified by the [facility] Microbiology Laboratory. 5. ?For questions about this culture, contact the Microbiology Laboratory at [phone]. Interpretive data was last revised on 2019. Philippe Mcguire MD LAB MICROBIOLOGY - [facility] ORDERABLES Final Result MARY JANE [address] [facility] Department [place] [address] * Thyroid Function [place] (08/14/2023 8:47 PM CDT) [facility] TSH 2.71 0.30 - 4.20 mcIUnit/mL Comment:Testing performed by : [facility], [address] [place] [address]., [address] Blood 08/14/2023 8:47 PM CDT 08/14/2023 8:52 PM CDT Philippe Mcguire MD LAB BLOOD ORDERABLES Final Result Performing Organization Address [facility] Co de Phone Number MARY JANE [facility] [place] [address] * (ABNORMAL) Hemoglobin A1c (08/14/2023 8:47 PM CDT) [facility] Hgb A1C 8.4(H) 4.0 - 5.6 % Comment:Testing performed by : [address] [address] Estimated Average Glucose 194 mg/dL [facility] Comment: The ADA recommends reporting an estimated Average Glucose (eAG) with all Hemoglobin A1c results using the equation derived from a study of 507 normal and diabetic adults. ??Minority populations were underrepresented and children were not included. ?? (Diabetes Care 31:2326-7809, 2008). ??The eAG is not equivalent to a fasting glucose. Testing performed by: [address] [address] Blood 08/14/2023 8:47 PM CDT 08/14/2023 8:52 PM CDT Philippe Mcguire MD LAB BLOOD ORDERABLES Final Result Performing Organization Address [facility] de Phone Number MARY JANE [address] [place] [address] * aPTT (08/14/2023 8:47 PM CDT) [facility] aPTT 29 22 - 37 sec Comment: Interpretive data aPTT test has not been evaluated for monitoring heparin therapy. The anti-Xa is the preferred test. Current interpretive data was last revised on 2019. Testing performed by: [address] [address] Blood 08/14/2023 8:47 PM CDT 08/14/2023 8:53 PM CDT Philippe Mcguire MD LAB BLOOD ORDERABLES Final Result Performing Organization Address City/[facility]/ZIP Co de Phone Number MARY JANE [address] [address] * Protime-INR (08/14/2023 8:47 PM CDT) PT 14.1 12.0 - 14.6 sec Comment:Testing performed by : [address] [address] INR 1.1 0.9 - 1.2 MARY JANE Comment: Ref Range High Interpretive data Oral anticoagulant therapeutic ranges: Venous thromboembolism prophylaxis or treatment: 2.0-3.0 CARDIOLOGY Standard range: 2.0-3.0 High-intensity range: 2.5-3.5 Refer to indication-specific guidelines for appropriate target ranges for prosthetic heart valve replacement. Current interpretive data was last revised on 2019. Testing performed by: [address] [address] Blood 08/14/2023 8:47 PM CDT 08/14/2023 8:53 PM CDT Philippe Mcguire MD LAB BLOOD ORDERABLES Final Result Performing Organization Address [facility] Co de Phone Number [address] [address] * Vitamin B12 (08/14/2023 8:47 PM CDT) Pathologist [facility] Vitamin B12 393 230 - 1,250 pg/mL Comment:Testing performed by : [address] [address] Blood 08/14/2023 8:47 PM CDT 08/14/2023 8:53 PM CDT us Philippe Mcguire MD LAB BLOOD ORDERABLES Final Result Performing Organization Address City/[facility]/ZIP Co de Phone Number [address] [address] * Iron profile w/ IBC (08/14/2023 8:47 PM CDT) Iron 71 35 - 145 mcg/dL Comment:Testing performed by : [address] [address] TIBC 303 250 - 400 mcg/dL MARY JANE Comment:Testing performed by : [address] [address] Transferrin saturation 23 20 - 50 % MARY JANE Comment:Testing performed by : [address] [address] Blood 08/14/2023 8:47 PM CDT 08/14/2023 8:52 PM CDT Philippe Mcguire MD LAB BLOOD ORDERABLES Final Result Performing Organization Address [facility] de Phone Number [address] [place] [address] * Ferritin (08/14/2023 8:47 PM CDT) Pathologist [facility] Ferritin 52 15 - 150 ng/mL Comment:Testing performed by : [address] [address] Blood 08/14/2023 8:47 PM CDT 08/14/2023 8:52 PM CDT Philippe Mcguire MD LAB BLOOD ORDERABLES Final Result Performing Organization Address [facility] de Phone Number [address] [place] [address] * Lipid panel (08/14/2023 8:47 PM CDT) Pathologist [facility] Cholesterol 176 30 - 199 mg/dL Comment: [...] last revised on 2017. Testing performed by: [address] [address] Triglycerides 121 <=149 mg/dL MARY JANE Comment: [...] last revised on 2017. Testing performed by: [address] [address] HDL 44 >=40 mg/dL MARY JANE Comment: [...] last revised on 2017. Testing performed by: [address] [address] LDL, calculated 108 <=129 mg/dL MARY JANE Comment: Interpretive Data Ages [...] last revised on 2017. Testing performed by: [address] [address] Non-HDL Cholesterol 132 mg/dL MARY JANE Comment: [...] last revised on 2017. Testing performed by: [address] [address] Chol/HDL ratio 4 [facility] Comment:Testing performed by : [address] [address] Blood 08/14/2023 8:47 PM CDT 08/14/2023 8:52 PM CDT Philippe Mcguire MD LAB BLOOD ORDERABLES Final Result [address] [place] [address] * (ABNORMAL) CRP (acute phase) (08/14/2023 8:47 PM CDT) Pathologist [facility] CRP 15.5(H) <=10.0 mg/L Comment:Testing performed by : [address] [address] Blood 08/14/2023 8:47 PM CDT 08/14/2023 8:52 PM CDT Philippe Mcguire MD LAB BLOOD ORDERABLES Final Result Performing Organization Address [facility] Co de Phone Number [address] [place] [address] * (ABNORMAL) Erythrocyte sedimentation rate (08/14/2023 8:47 PM CDT) Pathologist [facility] Erythrocyte sedimentation rate 55(H) 1 - 30 mm/hr Comment:Testing performed by : [address] [address] Blood 08/14/2023 8:47 PM CDT 08/14/2023 8:52 PM CDT us Philippe Mcguire MD LAB BLOOD ORDERABLES Final Result [address] [place] [address] * Lactate (08/14/2023 8:47 PM CDT) Pathologist [facility] Lactate 1.1 0.7 - 2.0 mmol/L Comment:Testing performed by : [address] [address] Blood 08/14/2023 8:47 PM CDT 08/14/2023 8:53 PM CDT us Philippe Mcguire MD LAB BLOOD ORDERABLES Final Result [address] [address] * Phosphorus (08/14/2023 8:47 PM CDT) [facility] Phosphorus, pl 3.0 2.3 - 4.5 mg/dL Comment:Testing performed by : [address] [address] Blood 08/14/2023 8:47 PM CDT 08/14/2023 8:52 PM CDT us Philippe Mcguire MD LAB BLOOD ORDERABLES Final Result Performing Organization Address City/[facility]/ZIP Co de Phone Number [address] [address] * (ABNORMAL) Magnesium (08/14/2023 8:47 PM CDT) [facility] Magnesium 1.3(L) 1.4 - 2.5 mg/dL Comment:Testing performed by : [address] [address] Blood 08/14/2023 8:47 PM CDT 08/14/2023 8:52 PM CDT us Philippe Mcguire MD LAB BLOOD ORDERABLES Final Result [address] [address] * POCT glucose (08/14/2023 8:28 PM CDT) Glucose, POC 143 70 - 199 mg/dL Comment:Testing performed by : [address] [address] Glucose comment 1 Use This Result MARY JANE Comment:Testing performed by : [address] [address] Glucose comment 2 RN/MD Notified MARY JANE Comment:Testing performed by : [address] [address] Blood 08/14/2023 8:28 PM CDT 08/14/2023 8:28 PM CDT us Philippe Mcguire MD LAB POCT ORDERABLES - DEVICE Final Result [address] [address] * Sepsis Lactate w/ Reflex (08/14/2023 5:49 PM CDT) [facility] Sepsis Lactate 1.2 0.7 - 2.0 mmol/L Comment:Testing performed by : [address] [address] Blood 08/14/2023 5:49 PM CDT 08/14/2023 5:59 PM CDT us Yesi MCKEON LAB BLOOD ORDERABLES Final Result [address] [address] * POCT glucose (08/14/2023 5:37 PM CDT) [facility] Glucose, POC 181 70 - 199 mg/dL Comment:Testing performed by : [address] [address] Blood 08/14/2023 5:37 PM CDT 08/14/2023 5:37 PM CDT us Notinfile Unknown LAB POCT ORDERABLES - DEVICE F inal Result MARY JANE [address] [facility] Department [place] [address] * XR Chest 1 Vw Portable (08/14/2023 4:01 PM CDT) Anatomical Region Laterality Modality Body, Chest N/A Computed Radiogr aphy 08/14/2023 4:08 PM CDT Narrative 08/14/2023 4:09 PM CDT EXAM DESCRIPTION: ?? XR CHEST 1 VIEW REASON FOR STUDY: ?? epigastric,chest pain ?? Pt states mid abdominal pain since last night, increased epigastric pain after drinking water x today ? TECHNIQUE: ??Single-view COMPARISON: ??05/11/2023 FINDINGS: Perihilar interstitial densities are somewhat more pronounced than previous and may represent peribronchial inflammatory changes with subtle vascular congestion not excluded but probably less likely. No dense consolidation, effusion or pneumothorax. IMPRESSION: Mild peribronchial inflammatory changes versus vascular congestion. THIS IS AN ELECTRONICALLY VERIFIED FINAL REPORT 08/14/2023 4:09 PM - Electronically signed by ??Ryan Partida M.D. RB: LALA D: ??08/14/2023 4:09 PM T: ??08/14/2023 4:09 PM Report ID: [id number] Reading Location: ??[id number] Procedure Note Ryan Partida MD - 08/14/2023 EXAM DESCRIPTION: XR CHEST 1 VIEW REASON FOR STUDY: epigastric,chest pain Pt states mid abdominal pain since last night, increased epigastric painafter drinking water x today TECHNIQUE: Single-view COMPARISON: 05/11/2023 FINDINGS: Perihilar interstitial densities are somewhat more pronounced thanprevious and may represent peribronchial inflammatory changes with subtle vascular congestion not excluded but probably less likely. No dense consolidation, effusion or pneumothorax. IMPRESSION: Mild peribronchial inflammatory changes versus vascularcongestion. THIS IS AN ELECTRONICALLY VERIFIED FINAL REPORT 08/14/2023 4:09 PM - Electronically signed by Ryan Partdia M.D. RB: LALA Report ID: [id number] Reading Location: [place] [address] Yesi [facility]KEON IMG XR PROCEDURES Final Re sult * CT Abdomen Pelvis W Contrast (08/14/2023 2:12 PM CDT) Anatomical Region Laterality Modality Body N/A Computed Tomogra phy 08/14/2023 2:25 PM CDT Narrative 08/14/2023 2:29 PM CDT EXAM DESCRIPTION: ?? CT ABDOMEN PELVIS W CONTRAST REASON FOR STUDY: ?? Nausea/vomiting, Abdominal pain, acute, nonlocalized ?? Patient endorses mid abdominal pain, nausea, vomiting and diarrhea since last night. Also complains of urinary symptoms. Patient states she has been taking Mounjaro x 4 weeks. ? TECHNIQUE: CT scan of the abdomen [...] ?? injected via ?? intravenous COMPARISON: ?? CT abdomen and pelvis 02/03/2023 REFERENCE: Per ACR white paper recommendations, unless otherwise specified no follow-up imaging is recommended for incidental renal and adrenal lesions per consensus recommendations based on imaging criteria. Further lab evaluation could be pursued based on clinical findings. FINDINGS: LOWER CHEST: ?? No acute findings. ?? Mitral annular calcifications. LIVER: ?? Normal. GALLBLADDER: ?? Absent. SPLEEN: ?? Normal. PANCREAS: ?? Normal. ?? ADRENALS: ?? Normal. KIDNEYS/URINARY TRACT: ?? Symmetric urinary enhancement. ??Water density right renal lesion which should represent a cyst. ??No urolithiasis or hydronephrosis. ?? GI: ?? No bowel obstruction. ?? Colonic diverticula without acute diverticulitis. ??Normal appendix. ?? PERITONEUM: ?? No free intraperitoneal air or free fluid. REPRODUCTIVE: ?? Normal. VASCULATURE: ?? No abdominal aortic aneurysm. MUSCULOSKELETAL: ?? No acute skeletal abnormality. OTHER: ?? Previous ventral abdominal wall hernia repair with mesh placement. ?? No adjacent fluid collection. ??Stimulator device in the left flank with lead entering the posterior central canal in the lower thoracic spine with posterior element resections. IMPRESSION: No acute findings. Chronic changes as above. ?? THIS IS AN ELECTRONICALLY VERIFIED FINAL REPORT 08/14/2023 2:29 PM - Electronically signed by ??David Carlton M.D. JR: D: ??08/14/2023 2:29 PM T: ??08/14/2023 2:29 PM Report ID: [id number] Reading Location: ??[id number] Procedure Note David Carlton MD - 08/14/2023 EXAM DESCRIPTION: CT ABDOMEN PELVIS W CONTRAST REASON FOR STUDY: Nausea/vomiting, Abdominal pain, acute, nonlocalized Patient endorses mid abdominal pain, nausea, vomiting and diarrhea sincelast night. Also complains of urinary symptoms. Patient states she has beentaking Mounjaro x 4 weeks. TECHNIQUE: CT scan of the abdomen and pelvis performed with intravenousand without oral contrast using helical scanning technique with dynamic intravenous contrast injection. Reconstructed coronal and sagittal MPRimages reviewed. All images stored on PACS. Automated exposure control was used as a dose optimization technique forthis examination. CONTRAST TYPE/DOSE: 100mL of IOVERSOL 350 MG IODINE/ML INTRAVENOUSSYRINGE injected via intravenous COMPARISON: CT abdomen and pelvis 02/03/2023 REFERENCE: Per ACR white paper recommendations, unless otherwise specifiedno follow-up imaging is recommended for incidental renal and adrenal lesionsper consensus recommendations based on imaging criteria. Further labevaluation could be pursued based on clinical findings. FINDINGS: LOWER CHEST: No acute findings. Mitral annularcalcifications. LIVER: Normal. GALLBLADDER: Absent. SPLEEN: Normal. PANCREAS: Normal. ADRENALS: Normal. KIDNEYS/URINARY TRACT: Symmetric urinary enhancement. Water densityright renal lesion which should represent a cyst. No urolithiasis or hydronephrosis. GI: No bowel obstruction. Colonic diverticula without acute diverticulitis. Normal appendix. PERITONEUM: No free intraperitoneal air or free fluid. REPRODUCTIVE: Normal. VASCULATURE: No abdominal aortic aneurysm. MUSCULOSKELETAL: No acute skeletal abnormality. OTHER: Previous ventral abdominal wall hernia repair with meshplacement. No adjacent fluid collection. Stimulator device in the left flank withlead entering the posterior central canal in the lower thoracic spine with posterior element resections. IMPRESSION: No acute findings. Chronic changes as above. THIS IS AN ELECTRONICALLY VERIFIED FINAL REPORT 08/14/2023 2:29 PM - Electronically signed by David Carlton M.D. JR: Report ID: [id number] Reading Location: [place] [address] PROCEDURES Final Re sult * (ABNORMAL) Urine culture Urine (08/14/2023 12:30 PM CDT) Report Final Report: Greater than or equal to 100,000 colonies/mL of Escherichia coli Plus growth of clinically insignificant bacterial yesenia. (.) Comment:Testing performed by : [facility], [address] [place]., [address] Organism ESCHERICHIA COLI MARY JANE Organism PLUS GROWTH OF CLINICALLY INSIGNIFICANT YESENIA. MARY JANE Urine 08/14/2023 12:3 0 PM CDT 08/14/2023 4:01 PM CDT Narrative [facility] - 08/16/2023 10:12 AM CDT Urine culture reflexed based upon urinalysis results. Testing performed by [facility] Microbiology Laboratory ([phone]) Organism Antibiotic Method Susceptibility Escherichia coli Ampicillin [...] Susceptible Escherichia coli Cefdinir INTERPRETATION Susceptible us Jamia Rangel DO LAB MICROBIOLOGY - GENERAL ORDE REGAN Final Result MARY JANE [address] [facility] Department [place] [address] * (ABNORMAL) Urinalysis, microscopic only (08/14/2023 12:30 PM CDT) WBC, ur 21-50(A) 0 - 5 /HPF Comment:Testing performed by : [address] [address] RBC, ur 0-2 0 - 2 /HPF MARY JANE Comment:Testing performed by : [address] [address] Epithelial cells, squamous, ur 11-20(A) 0 - 5 /HPF MARY JANE Comment:Testing performed by : [address] [address] Bacteria, ur Trace(A) MARY JANE Comment:Testing performed by : [address] [address] Mucous, ur Present(A) MARY JANE Comment:Testing performed by : [address] [address] Hyaline casts, ur 1-5 0 - 10 /LPF MARY JANE Comment:Testing performed by : [address] [address] Culture Reflex Comment Reflex to urine culture will be performed. MARY JANE Comment:Testing performed by : [address] [address] Urine 08/14/2023 12:3 0 PM CDT 08/14/2023 12:37 PM CDT us Philippe Mcguire MD LAB URINE ORDERABLES Final Result Performing Organization Address City/[facility]/ZIP Co de Phone Number MARY JANE [address] [facility] Department [place] [address] * (ABNORMAL) Urinalysis reflex to microscopic and culture Urine (08/14/2023 12:30 PM CDT) Color, ur Yellow Yellow Comment:Testing performed by : [address] [address] Clarity, ur Clear Clear MARY JANE Comment:Testing performed by : [address] [address] Specific gravity, ur 1.019 1.003 - 1.030 MARY JANE Comment:Testing performed by : [address] [address] pH, urine 5.5 MARY JANE Comment: Interpretive Data ? Urine pH is affected by diet, medications, systemic acid-base disturbances, and renal tubular function. ??pH may affect urinary stone formation. ??For example, urine pH below 6.0 may help reduce the tendency for calcium phosphate stones and pH greater than 6.0 may reduce the tendency for uric acid stone formation. Source: [facility] [employer] Current Interpretive Data was last revised on 2017 Testing performed by: [address] [address] Protein, ur ql Negative Negative MARY JANE Comment:Testing performed by : [address] [address] Glucose, ur ql 3+(A) Negative MARY JANE Comment:Testing performed by : [address] [address] Ketones, ur Negative Negative MARY JANE Comment:Testing performed by : [address] [address] Bilirubin, ur Negative Negative MARY JANE Comment:Testing performed by : [address] [address] Blood, ur Trace(A) Negative MARY JANE Comment:Testing performed by : [address] [address] Urobilinogen, ur <2.0 <2.0 mg/dL MARY JANE Comment:Testing performed by : [address] [address] Nitrite, ur Negative Negative MARY JANE Comment:Testing performed by : [facility], [address] [place] [address]., [address] Leukocyte esterase, ur 2+(A) Negative MARY JANE PHAM Comment:Testing performed by : [address] [address] UA reflex comment Reflex to microscopic UA will be performed. MARY JANE PHAM Comment:Testing performed by : [facility], [address] [place] [address]., [address] Urine 08/14/2023 12:3 0 PM CDT 08/14/2023 12:37 PM CDT us Philippe Mcguire MD LAB MICROBIOLOGY - G ENERAL ORDERABLES Final Result MARY JANE PHAM [address] [facility] Department [place] [address] * eGFR (08/14/2023 12:20 PM CDT) eGFR >90 >=60 mL/min/1. 73 [...] was last reviewed 2021. Testing performed by: [address] [address] Blood 08/14/2023 12:2 0 PM CDT 08/14/2023 12:44 PM CDT Philippe Mcguire MD LAB BLOOD ORDERABLES Final Result MARY JANE [address] [facility] Department [place] [address] * Differential, auto (08/14/2023 12:20 PM CDT) Neutrophil abs 5.2 1.5 - 6.5 K/cumm Comment:Testing performed by : [address] [address] Imm gran abs 0.0 0.0 - 0.1 K/cumm MARY JANE Comment:Testing performed by : [address] [address] Lymphocyte abs 2.2 0.8 - 3.3 K/cumm MARY JANE Comment:Testing performed by : [address] [address] Monocyte abs 0.6 0.2 - 0.8 K/cumm MARY JANE Comment:Testing performed by : [address] [address] Eosinophil abs 0.3 0.0 - 0.5 K/cumm MARY JANE Comment:Testing performed by : [address] [address] Basophil abs 0.0 0.0 - 0.1 K/cumm MARY JANE Comment:Testing performed by : [address] [address] Neutrophil pct 62.2 % MARY JANE Comment: Interpretive Data Percent cell count reference ranges are not reported, since discordance with absolute values may lead to misinterpretation of CBC data. Current Interpretive Data was last revised on 2017. Testing performed by: [address] [address] Imm gran pct 0.5 % MARY JANE Comment: Interpretive Data Percent cell count reference ranges are not reported, since discordance with absolute values may lead to misinterpretation of CBC data. Current Interpretive Data was last revised on 2017. Testing performed by: [address] [address] Lymphocyte pct 26.4 % [facility] Comment: Interpretive Data Percent cell count reference ranges are not reported, since discordance with absolute values may lead to misinterpretation of CBC data. Current Interpretive Data was last revised on 2017. Testing performed by: [address] [address] Monocyte pct 7.0 % [facility] Comment: Interpretive Data Percent cell count reference ranges are not reported, since discordance with absolute values may lead to misinterpretation of CBC data. Current Interpretive Data was last revised on 2017. Testing performed by: [address] [address] Eosinophil pct 3.5 % MARY JANE Comment: Interpretive Data Percent cell count reference ranges are not reported, since discordance with absolute values may lead to misinterpretation of CBC data. Current Interpretive Data was last revised on 2017. Testing performed by: [address] [address] Basophil pct 0.4 % MARY JANE Comment: Interpretive Data Percent cell count reference ranges are not reported, since discordance with absolute values may lead to misinterpretation of CBC data. Current Interpretive Data was last revised on 2017. Testing performed by: [address] [address] Blood 08/14/2023 12:2 0 PM CDT 08/14/2023 12:44 PM CDT us Philippe Mcguire MD LAB BLOOD ORDERABLES Final Result MARY JANE [address] [facility] Department [place] [address] * Lipase (08/14/2023 12:20 PM CDT) Lipase 20 10 - 99 Units/L Comment:Testing performed by : [address] [address] Blood (Blood, Venous) 08/14/2023 12:20 PM CDT 08/14/2023 12:44 PM CDT Philippe Mcguire MD LAB BLOOD ORDERABLES Final Result [place] [id number] [facility] Department [place] [address] * (ABNORMAL) Comprehensive metabolic panel (08/14/2023 12:20 PM CDT) Pathologist [facility] Sodium 137 135 - 145 mmol/L Comment:Testing performed by : [address] [address] Potassium, pl 4.2 3.3 - 4.9 mmol/L MARY JANE Comment:Testing performed by : [address] [address] Chloride 99 97 - 110 mmol/L MARY JANE Comment:Testing performed by : [address] [address] CO2 26 22 - 32 mmol/L MARY JANE Comment:Testing performed by : [address] [address] Anion gap 12 2 - 15 mmol/L MARY JANE Comment:Testing performed by : [address] [address] BUN 13 6 - 25 mg/dL MARY JANE Comment:Testing performed by : [address] [address] Creatinine 0.60 0.60 - 1.10 mg/dL MARY JANE Comment:Testing performed by : [address] [address] Glucose 290(H) 70 - 199 mg/dL MARY JANE Comment: [...] was last revised 2022. Testing performed by: [address] [address] Calcium 10.1 8.5 - 10.3 mg/dL MARY JANE Comment:Testing performed by : [address] [address] Bilirubin, total 0.7 0.1 - 1.2 mg/dL MARY JANE Comment:Testing performed by : [address] [address] Protein, pl 8.7(H) 6.5 - 8.5 g/dL MARY JANE Comment:Testing performed by : [address] [address] Albumin 4.1 3.5 - 5.0 g/dL [facility] Comment:Testing performed by : [address] [address] Alk phos 86 40 - 130 Units/L MARY JANE Comment:Testing performed by : [address] [address] ALT 23 7 - 45 Units/L [facility] Comment:Testing performed by : [address] [address] AST 21 10 - 45 Units/L [facility] Comment: HEMOLYZED: Hemolysis interferes with the above test. Testing performed by: [address] [address] Blood 08/14/2023 12:2 0 PM CDT 08/14/2023 12:44 PM CDT us Philippe Mcguire MD LAB BLOOD ORDERABLES Final Result MARY JANE [address] [facility] Department [place] [address] * CBC with auto differential (08/14/2023 12:20 PM CDT) WBC 8.3 3.8 - 9.9 K/cumm Comment:Testing performed by : [address] [address] Hgb 14.1 11.9 - 15.5 g/dL MARY JANE Comment:Testing performed by : [address] [address] Hct 43.3 35.6 - 45.5 % MARY JANE Comment:Testing performed by : [address] [address] Plt 277 150 - 400 K/cumm MARY JANE Comment:Testing performed by : [address] [address] MPV 9.9 9.1 - 12.3 fL MARY JANE Comment:Testing performed by : [address] [address] RBC 4.94 3.90 - 5.20 M/cumm MARY JANE Comment:Testing performed by : [address] [address] MCV 87.7 81.3 - 96.4 fL MARY JANE Comment:Testing performed by : [address] [address] MCH 28.5 27.1 - 33.3 pg MARY JANE Comment:Testing performed by : [address] [address] MCHC 32.6 32.3 - 35.7 g/dL MARY JANE Comment:Testing performed by : [address] [address] RDW CV 13.4 11.1 - 14.9 % MARY JANE Comment:Testing performed by : [address] [address] RDW SD 42.9 35.7 - 48.1 fL MARY JANE Comment:Testing performed by : [address] [place]., [address] NRBC abs 0.00 0.00 - 0.01 K/cumm MARY JANE PHAM Comment:Testing performed by : [facility], [address] [place] [address]., [address] Blood (Blood, Venous) 08/14/2023 12:20 PM CDT 08/14/2023 12:44 PM CDT Philippe Mcguire MD LAB BLOOD ORDERABLES Final Result MARY JANE PHAM [address] [facility] Department [place] [address] documented in this encounter Visit Diagnoses Diagnosis Abdominal pain- Primary Abdominal pain, unspecified site Abdominal pain Abdominal pain, unspecified site Nausea and vomiting, unspecified vomiting type Allergy to drug Other drug allergy Type 2 diabetes mellitus without complication, with long-term current use of insulin ([facility]) (HCC) Diabetic gastroparesis (CMS/HCC) (HCC) Type II or unspecified type diabetes mellitus with neurological manifestations, not stated as uncontrolled Multiple drug allergies Acute cystitis without hematuria Uncontrolled type 2 diabetes mellitus with hyperglycemia, with long-term current use of insulin (HCC) Breast cancer (HCC) Malignant neoplasm of breast (female), unspecified site Hypertension Unspecified essential hypertension History of pulmonary embolism Personal history of venous thrombosis and embolism Restless legs syndrome Restless legs syndrome (RLS) documented in this encounter Admitting Diagnoses Diagnosis Abdominal pain Abdominal pain, unspecified site documented in this encounter Administered Medications Inactive Administered Medications - up to 3 most recent administrations Medication Order MAR Action Action Date Dose Rate Site acetaminophen (TYLENOL) tablet 650 mg 650 mg, oral, Every 4 hours PRN, 1st line for pain, fever, fever greater than 38.3 C, Starting on Mon08/14/23 at 1755, Indications: Fever, PainIndications:Fever,Pain Given 08/17/2023 3:47 PM CDT 650 mg Carrier Fluids for Secondary Infusion - 0.9% Sodium Chloride 30 mL, intravenous, As needed, For priming tubing and/or flushing, Starting on Mon08/14/23 at 1755, 0-250 ml/hr to flush line after IV infusions when no maintenance IV ordered. Infuse 30mL at the same rate as the secondary infusion. Run as primary IV, not intended for KVO. dextrose (D10W) 10% bolus 250 mL 250 mL, intravenous, at 1,000 mL/hr, Administer over 15 Minutes, Every 15 min PRN, blood glucose less than 70 mg/dL and UNABLE to swallow/take PO glucose/juice., Starting on Mon08/14/23 at 1844, After treatment for hypoglycemia, recheck BG followed by treatment every 15 minutes until the BG is greater than 100 mg/dL. Then check BG 1 hour post treatment. If BG is less than 100 mg/dL, repeat Q15 minute BG checks and treatment. Call MD for each episode of hypoglycemia., Indications: hypoglycemic disorderIndications:hypoglycemic disorder dextrose (GLUTOSE) 40 % gel 15 g 15 g, oral, Every 15 min PRN, low blood sugar, blood glucose less than 70 mg/dL, Starting on Mon08/14/23 at 1844, If patient is alert and able to eat/drink, give 15 gm glucose or one juice (4 fluid ounces) NOT ORANGE JUICE. After treatment for hypoglycemia, recheck BG followed by treatment every 15 minutes until the BG is greater than 100 mg/dL. Then check BG 1 hour post-treatment. If BG is less than 100 mg/dL, repeat Q15 minute BG checks and treatment. Call MD for each episode of hypoglycemia. MANGLE OPERATOR GARMENTS STATES GLUTOSE-15 CONTAINS GLUCOSE 40% W/W (50% W/V), Indications: hypoglycemic disorderIndications:hypoglycemic disorder diphenhydrAMINE (BENADRYL) tab/cap 25 mg 25 mg, oral, 4 times daily PRN, itching, allergies, Starting on Mon08/15/23 at 0923 Given 08/17/2023 10:30 PM CDT 25 mg Given 08/15/2023 10:14 AM CDT 25 mg fosfomycin (MONUROL) packet 3 g 3 g, oral, Once, On Mon08/14/23 at 1515, For 1 dose, Pour contents of packet into 3-4 oz of cool water, stir to dissolve and administer immediately., Indications: Urinary Tract/Genitourinary InfectionIndications:Urinary Tract/Genitourinary Infection Given 08/14/2023 3:25 PM CDT 3 g fosfomycin (MONUROL) packet 3 g 3 g, oral, Once, On Mon08/16/23 at 1200, For 1 dose, Pour contents of packet into 3-4 oz of cool water, stir to dissolve and administer immediately., Indications: Urinary Tract/Genitourinary InfectionIndications:Urinary Tract/Genitourinary Infection Given 08/16/2023 11:23 AM CDT 3 g glucagon injection 1 mg 1 mg, intramuscular, Every 30 min PRN, low blood sugar, blood glucose less than 70 mg/dL AND no IV access AND unable to take PO glucose/juice., Starting on Mon08/14/23 at 1844, After Glucagon is administered, position patient on side if possible to avoid aspiration. Obtain IV access. Follow glucagon treatment with glucose treatment or IV dextrose. After treatment for hypoglycemia, recheck BG followed by treatment every 15 minutes until the BG is greater than 100 mg/dL. Then check BG 1 hour post treatment. If BG is less than 100 mg/dL, repeat Q15 minute BG checks and treatment. Call MD for each episode of hypoglycemia. Reconstitute 1 mg vial with 1 mL SWFI. Use immediately following reconstitution. HYDROcodone-acetaminophen (NORCO) 5-325 mg per tablet 1 tablet 1 tablet, oral, Every 4 hours PRN, 2nd line for pain, Starting on Mon08/14/23 at 1758, Indications: PainIndications:Pain Given 08/18/2023 9:51 AM CDT 1 ta blet Given 08/18/2023 5:01 AM CDT 1 tablet Given 08/18/2023 1:21 AM CDT 1 tablet HYDROmorphone (DILAUDID) injection 0.5 mg 0.5 mg, intravenous, Administer over 2 Minutes, Once, On Mon08/14/23 at 1528, For 1 dose, Indications: PainIndications:Pain Given 08/14/2023 3:33 PM CDT 0.5 mg HYDROmorphone (DILAUDID) injection 0.5 mg 0.5 mg, intravenous, Administer over 2 Minutes, Once, On Mon08/14/23 at 1548, For 1 dose, Indications: PainIndications:Pain Given 08/14/2023 4:01 PM CDT 0.5 mg HYDROmorphone (DILAUDID) injection 0.5 mg 0.5 mg, intravenous, Administer over 2 Minutes, Every 4 hours PRN, breakthrough pain, Starting on Mon08/14/23 at 1800 Given 08/16/2023 6:51 PM CDT 0.5 mg Given 08/16/2023 8:23 AM CDT 0.5 mg HYDROmorphone (DILAUDID) injection 1 mg 1 mg, intravenous, Administer over 2 Minutes, Once, On Mon08/14/23 at 1720, For 1 dose, Indications: PainIndications:Pain Given 08/14/2023 5:46 PM CDT 1 mg insulin glargine (LANTUS, SEMGLEE) 100 unit/mL injection 12 Units 12 Units, subcutaneous, Every morning, First dose on Mon08/15/23 at 0900, Do not mix with other insulins Given 08/18/2023 9:51 AM CDT 12 Units Left Upper Arm Given 08/17/2023 10:10 AM CDT 12 Units R ight Upper Arm Given 08/16/2023 8:23 AM CDT 12 Units Le ft Upper Arm insulin lispro (HumaLOG, ADMELOG) 100 unit/mL injection 0-4 Units 0-4 Units, subcutaneous, Nightly, First dose on Mon08/14/23 at 2100, Blood glucose mg/dL: 199 or less: No insulin 200-249: add 1 unit 250-299: add 2 units 300-349: add 3 units and notify physician for adjustment of insulin orders. 350-399: add 4 units and notify physician for adjustment of insulin orders. Over 400: Notify physician for adjustment of insulin orders. Do NOT hold for NPO Status, Indications: Diabetes MellitusIndications:Diabetes Mellitus insulin lispro (HumaLOG, ADMELOG) 100 unit/mL injection 0-5 Units 0-5 Units, subcutaneous, 3 times daily with meals, First dose on Mon08/14/23 at 1845, Blood glucose mg/dL: 149 or less: No insulin 150-199: add 1 unit 200-249: add 2 units 250-299: add 3 units 300-349: add 4 units and notify physician for adjustment of insulin orders. 350-399: add 5 units and notify physician for adjustment of insulin orders. Over 400: Notify physician for adjustment of insulin orders. Do NOT hold for NPO Status, Indications: Diabetes MellitusIndications:Diabetes Mellitus Given 08/18/2023 12:43 PM CDT 2 Units Left Upper Arm Given 08/18/2023 9:50 AM CDT 1 Units Le ft Upper Arm Given 08/17/2023 5:44 PM CDT 1 Units Ri ght Upper Arm insulin lispro (HumaLOG, ADMELOG) 100 unit/mL injection 22 Units 22 Units, subcutaneous, 3 times daily with meals, First dose on Mon08/15/23 at 0800, On hold since Mon08/14/2023 at 1952 until manually unheld ioversoL (OPTIRAY 350) syringe 100 mL 100 mL, intravenous, Once in imaging, contrast, Starting on Mon08/14/23 at 1411, For 1 dose Contrast Given 08/14/2023 2:11 PM CDT 100 mL Right Hand magnesium sulfate 2 g/50 mL in water (premix) 2 g 2 g, intravenous, Administer over 60 Minutes, Once, On Mon08/15/23 at 1800, For 1 dose New Bag 08/15/2023 5:55 PM CDT 2 g methocarbamoL (ROBAXIN) tablet 500 mg 500 mg, oral, 2 times daily, First dose on Mon08/14/23 at 2100 Given 08/18/2023 9:51 AM CDT 500 mg Given 08/17/2023 9:20 PM CDT 500 mg Given 08/17/2023 8:11 AM CDT 500 mg morphine injection 2 mg 2 mg, intravenous, Administer over 4 Minutes, Every 4 hours PRN, 3rd line for pain, Starting on Mon08/14/23 at 1759 Given 08/17/2023 8:09 AM CDT 2 mg Given 08/17/2023 1:59 AM CDT 2 mg Given 08/16/2023 9:35 PM CDT 2 mg morphine injection 2 mg 2 mg, intravenous, Administer over 4 Minutes, Once, On Mon08/17/23 at 1900, For 1 dose Given 08/17/2023 6:35 PM CDT 2 m g morphine injection 4 mg 4 mg, intravenous, Administer over 4 Minutes, Once, On Mon08/14/23 at 1449, For 1 dose, Indications: PainIndications:Pain Given 08/14/2023 2:52 PM CDT 4 mg ondansetron (ZOFRAN) injection 4 mg 4 mg, intravenous, Administer over 2 Minutes, Once as needed, nausea, vomiting, If patient unable to tolerate PO, Starting on Mon08/14/23 at 1207, For 1 dose, Do not administer if patient had 8mg administered within 6 hours of patient presenting to ED Do not administer if patient was formally diagnosed with prolonged QT syndrome ondansetron (ZOFRAN) injection 4 mg 4 mg, intravenous, Administer over 2 Minutes, Once, On Mon08/14/23 at 1449, For 1 dose, Indications: Nausea, VomitingIndications:Nausea,Vomiting Given 08/14/2023 2:52 PM CDT 4 mg ondansetron (ZOFRAN) injection 4 mg 4 mg, intravenous, Administer over 2 Minutes, Every 6 hours PRN, nausea, vomiting, if not tolerating PO, Starting on Mon08/14/23 at 1755, Indications: Nausea and VomitingIndications:Nausea and Vomiting Given 08/17/2023 3:22 PM CDT 4 mg Given 08/16/2023 3:34 PM CDT 4 mg ondansetron ODT (ZOFRAN-ODT) disintegrating tablet 4 mg 4 mg, oral, Once as needed, nausea, vomiting, If able to tolerate PO, Starting on Mon08/14/23 at 1207, For 1 dose, Do not administer if patient had 8mg administered within 6 hours of patient presenting to ED Do not administer if patient was formally diagnosed with prolonged QT syndrome ondansetron ODT (ZOFRAN-ODT) disintegrating tablet 4 mg 4 mg, oral, Every 6 hours PRN, nausea, vomiting, Starting on Mon08/14/23 at 1755, Indications: Nausea and VomitingIndications:Nausea and Vomiting Given 08/15/2023 11:53 AM CDT 4 m g ramelteon (ROZEREM) tablet 8 mg 8 mg, oral, Nightly PRN, sleep, Starting on Mon08/14/23 at 1755, Indications: Sleep-Onset InsomniaIndications:Sleep-Onset Insomnia rivaroxaban (XARELTO) tablet 20 mg 20 mg, oral, Daily, First dose on Mon08/14/23 at 1844, Nurse to discontinue heparin infusion order and associated bolus at first administration of rivaroxaban using 'order condition met' order source. If patient is eating, administer doses of 15 mg or greater with food. If patient is not eating, still administer dose unless instructed differently by provider. , Indications: atrial fibrillationIndications:atrial fibrillation Given 08/18/2023 9:51 AM CDT 20 mg Given 08/17/2023 8:11 AM CDT 20 mg Given 08/16/2023 8:23 AM CDT 20 mg rOPINIRole (REQUIP) tablet 5 mg 5 mg, oral, Nightly, First dose on Mon08/14/23 at 2100 Given 08/17/2023 9:19 PM CDT 5 mg Given 08/16/2023 9:31 PM CDT 5 mg Given 08/15/2023 9:30 PM CDT 5 mg senna-docusate (PERICOLACE) 8.6-50 mg per tablet 1 tablet 1 tablet, oral, 2 times daily, First dose on Mon08/16/23 at 0930 Given 08/18/2023 9:51 AM CDT 1 tablet Given 08/17/2023 9:20 PM CDT 1 tablet Given 08/16/2023 9:30 PM CDT 1 tablet sodium chloride 0.9% bolus 500 mL 500 mL, intravenous, at 500 mL/hr, Administer over 1 Hours, Once, On Mon08/14/23 at 1440, For 1 dose New Bag 08/14/2023 2:52 PM CDT 500 mL 500 mL/hr sodium chloride 0.9% flush 0.5-20 mL 0.5-20 mL, intra-catheter, Every 8 hours scheduled, First dose on Mon08/14/23 at 1759, Flush volume based on line type and size. Given 08/18/2023 5:01 AM CDT 10 mL Given 08/17/2023 9:21 PM CDT 10 mL Given 08/17/2023 4:57 AM CDT 10 mL sodium chloride 0.9% flush 0.5-20 mL 0.5-20 mL, intra-catheter, As needed, line care, Starting on Mon08/14/23 at 1755, Flush volume based on line type and size. Flush before and after each use. sodium chloride 0.9% infusion 75 mL/hr, intravenous, Continuous, Starting on Mon08/14/23 at 1759, For 12 hours New Bag 08/14/2023 6:14 PM CDT 75 mL/hr 75 mL/hr documented in this encounter Discontinued Medications Medication Sig Discontinue Reason Start Date End Da te insulin glargine (LANTUS) 100 unit/mL injection Inject 40 Units under the skin daily. Takes in the morning 01/26/2018 08/18/2023 methenamine (HIPREX) 1 gram tablet Take 1 tablet (1,000 mg total) by mouth 2 (two) times a day 04/27/2022 08/18/2023 amitriptyline (ELAVIL) 25 mg tablet Take 25 mg by mouth nightly Stop Taking at Discharge 05/21/2018 08/18/2023 HumaLOG 100 unit/mL pen for injection Stop Taking at Discharge 07/14/2022 08/18/2023 documented as of this encounter Active and Recently Administered Medications Times are shown in CDT. Scheduled Medication Order 08/16/2023 08/17/2023 08/18/2023 fosfomycin (MONUROL) packet 3 g (COMPLETED) 3 g, oral, Once, On Mon08/16/23 at 1200, For 1 dose, Pour contents of packet into 3-4 oz of cool water, stir to dissolve and administer immediately., Indications: Urinary Tract/Genitourinary Infection 1123 (Given - Provider: Freda Green RN) insulin glargine (LANTUS, SEMGLEE) 100 unit/mL injection 12 Units 12 Units, subcutaneous, Every morning, First dose on Mon08/15/23 at 0900, Do not mix with other insulins 0823 (Given - Provider: Freda Green RN) 1010 (Given - Provider: Freda Green RN) 0951 (Given - Provider: Ricarda Albert RN) insulin lispro (HumaLOG, ADMELOG) 100 unit/mL injection 0-4 Units 0-4 Units, subcutaneous, Nightly, First dose on Mon08/14/23 at 2100, Blood glucose mg/dL: 199 or less: No insulin 200-249: add 1 unit 250-299: add 2 units 300-349: add 3 units and notify physician for adjustment of insulin orders. 350-399: add 4 units and notify physician for adjustment of insulin orders. Over 400: Notify physician for adjustment of insulin orders. Do NOT hold for NPO Status, Indications: Diabetes Mellitus 2121 (Not Given - Provider: Jolie Kelley RN - Reason: Order parameters not met - Comment: BG 168) 2113 (Not Given - Provider: Jolie Kelley RN - Reason: Order parameters not met - Comment: BG 151) insulin lispro (HumaLOG, ADMELOG) 100 unit/mL injection 0-5 Units 0-5 Units, subcutaneous, 3 times daily with meals, First dose on Mon08/14/23 at 1845, Blood glucose mg/dL: 149 or less: No insulin 150-199: add 1 unit 200-249: add 2 units 250-299: add 3 units 300-349: add 4 units and notify physician for adjustment of insulin orders. 350-399: add 5 units and notify physician for adjustment of insulin orders. Over 400: Notify physician for adjustment of insulin orders. Do NOT hold for NPO Status, Indications: Diabetes Mellitus 0932 (Not Given - Provider: Freda Green RN - Reason: Order parameters not met)1309 (Given - Provider: Freda Green RN)1359 (Not Given - Provider: Freda Green RN - Reason: See Provider Order)1714 (Not Given - Provider: Freda Green RN - Reason: Patient/family refused - Comment: does not feel like eating supper glucose 1.2) 0933 (Not Given - Provider: Freda Green RN - Reason: Order parameters not met)1304 (Given - Provider: Freda Green RN)1744 (Given - Provider: Freda Green RN) 0950 (Given - Provider: Ricarda Albert, NURIS)1243 (Given - Provider: Ricarda Albert RN) insulin lispro (HumaLOG, ADMELOG) 100 unit/mL injection 22 Units 22 Units, subcutaneous, 3 times daily with meals, First dose on Mon08/15/23 at 0800, On hold since Mon08/14/2023 at 1952 until manually unheld 0800 (Not Given - Provider: Freda Green RN - Reason: Other)1200 (Not Given - Provider: Freda Green RN - Reason: See Provider Order)1800 (Hold - Provider: Freda Green RN - Reason: See Provider Order) 0800 (Not Given - Provider: Freda Green RN - Reason: See Provider Order)1200 (Not Given - Provider: Freda Green RN - Reason: See Provider Order)1800 (Hold - Provider: Freda Green RN - Reason: See Provider Order) 0800 (Not Given - Provider: Ricarda Albert RN - Reason: Other - Comment: held by provider)1200 (Not Given - Provider: Ricarda Albert RN - Reason: Other - Comment: held by provider)1717 (Unheld by Provider - Provider: Automatic Discharge Provider) methocarbamoL (ROBAXIN) tablet 500 mg 500 mg, oral, 2 times daily, First dose on Mon08/14/23 at 2100 0823 (Given - Provider: Freda Green RN)2129 (Given - Provider: Jolie Kelley RN) 0811 (Given - Provider: Freda Green RN)2119 (Given - Provider: Jolie Kelley RN) 0951 (Given - Provider: Ricarda Albert RN) morphine injection 2 mg (COMPLETED) 2 mg, intravenous, Administer over 4 Minutes, Once, On Valeri 08/17/23 at 1900, For 1 dose 1835 (Given - Provider: Freda Green RN) REQUEST FOR PATIENT OWN SUPPLY exemestane (AROMASIN) 25mg tablet 25 mg, oral, Nightly, First dose on Mon08/14/23 at 2100 214 (Not Given - Provider: Jolie Kelley RN - Reason: Medication not available - Comment: family to bring med) 2114 (Not Given - Provider: Jolie Kelley RN - Reason: Medication not available) rivaroxaban (XARELTO) tablet 20 mg 20 mg, oral, Daily, First dose on Mon08/14/23 at 1844, Nurse to discontinue heparin infusion order and associated bolus at first administration of rivaroxaban using 'order condition met' order source. If patient is eating, administer doses of 15 mg or greater with food. If patient is not eating, still administer dose unless instructed differently by provider. , Indications: atrial fibrillation 08 (Given - Provider: Freda Green RN) 0811 (Given - Provider: Freda Green RN) 0951 (Given - Provider: Ricarda Albert, NURIS) rOPINIRole (REQUIP) tablet 5 mg 5 mg, oral, Nightly, First dose on Mon08/14/23 at 2100 2131 (Given - Provider: Jolie Kelley RN) 2118 (Given - Provider: Jolie Kelley RN) senna-docusate (PERICOLACE) 8.6-50 mg per tablet 1 tablet 1 tablet, oral, 2 times daily, First dose on Mon08/16/23 at 0930 0936 (Given - Provider: Freda Green RN)2129 (Given - Provider: Jolie Kelley RN) 0811 (Not Given - Provider: Freda Green RN - Reason: Patient/family refused)2119 (Given - Provider: Jolie Kelley RN) 0951 (Given - Provider: Ricarda Albert RN) sodium chloride 0.9% flush 0.5-20 mL 0.5-20 mL, intra-catheter, Every 8 hours scheduled, First dose on Mon08/14/23 at 1759, Flush volume based on line type and size. 0454 (Given - Provider: Jolie Kelley RN)1215 (Not Given - Provider: Freda Green RN - Reason: Other)1359 (Not Given - Provider: Freda Green RN - Reason: Other)2219 (Given - Provider: Jolie Kelley RN) 0457 (Given - Provider: Jolie Kelley RN)1254 (Not Given - Provider: Freda Green RN - Reason: Other)2120 (Given - Provider: Jolie Kelley RN) 0501 (Given - Provider: Jolie Kelley RN) PRN Medication Order 08/16/2023 08/17/2023 08/18/2023 acetaminophen (TYLENOL) tablet 650 mg 650 mg, oral, Every 4 hours PRN, 1st line for pain, fever, fever greater than 38.3 C, Starting on Mon08/14/23 at 1755, Indications: Fever, Pain 1547 (Given - Provider: Freda Green, NURIS) Carrier Fluids for Secondary Infusion - 0.9% Sodium Chloride 30 mL, intravenous, As needed, For priming tubing and/or flushing, Starting on Mon08/14/23 at 1755, 0-250 ml/hr to flush line after IV infusions when no maintenance IV ordered. Infuse 30mL at the same rate as the secondary infusion. Run as primary IV, not intended for KVO. dextrose (D10W) 10% bolus 250 mL(Linked Group 1) 250 mL, intravenous, at 1,000 mL/hr, Administer over 15 Minutes, Every 15 min PRN, blood glucose less than 70 mg/dL and UNABLE to swallow/take PO glucose/juice., Starting on Mon08/14/23 at 1844, After treatment for hypoglycemia, recheck BG followed by treatment every 15 minutes until the BG is greater than 100 mg/dL. Then check BG 1 hour post treatment. If BG is less than 100 mg/dL, repeat Q15 minute BG checks and treatment. Call MD for each episode of hypoglycemia., Indications: hypoglycemic disorder dextrose (GLUTOSE) 40 % gel 15 g(Linked Group 1) 15 g, oral, Every 15 min PRN, low blood sugar, blood glucose less than 70 mg/dL, Starting on Mon08/14/23 at 1844, If patient is alert and able to eat/drink, give 15 gm glucose or one juice (4 fluid ounces) NOT ORANGE JUICE. After treatment for hypoglycemia, recheck BG followed by treatment every 15 minutes until the BG is greater than 100 mg/dL. Then check BG 1 hour post-treatment. If BG is less than 100 mg/dL, repeat Q15 minute BG checks and treatment. Call MD for each episode of hypoglycemia. MANGLE OPERATOR GARMENTS STATES GLUTOSE-15 CONTAINS GLUCOSE 40% W/W (50% W/V), Indications: hypoglycemic disorder diphenhydrAMINE (BENADRYL) tab/cap 25 mg 25 mg, oral, 4 times daily PRN, itching, allergies, Starting on Mon08/15/23 at 0923 2230 (Given - Provider: Jolie Kelley RN) glucagon injection 1 mg 1 mg, intramuscular, Every 30 min PRN, low blood sugar, blood glucose less than 70 mg/dL AND no IV access AND unable to take PO glucose/juice., Starting on Mon08/14/23 at 1844, After Glucagon is administered, position patient on side if possible to avoid aspiration. Obtain IV access. Follow glucagon treatment with glucose treatment or IV dextrose. After treatment for hypoglycemia, recheck BG followed by treatment every 15 minutes until the BG is greater than 100 mg/dL. Then check BG 1 hour post treatment. If BG is less than 100 mg/dL, repeat Q15 minute BG checks and treatment. Call MD for each episode of hypoglycemia. Reconstitute 1 mg vial with 1 mL SWFI. Use immediately following reconstitution. HYDROcodone-acetaminophe n (NORCO) 5-325 mg per tablet 1 tablet 1 tablet, oral, Every 4 hours PRN, 2nd line for pain, Starting on Mon08/14/23 at 1758, Indications: Pain 0453 (Given - Provider: Jolie Kelley RN) 0006 (Given - Provider: Jolie Kelley RN)0457 (Given - Provider: Jolie Kelley RN)1010 (Given - Provider: Freda Green RN)1418 (Given - Provider: Freda Green RN)1812 (Given - Provider: Freda Green RN)2120 (Given - Provider: Jolie Kelley RN) 0121 (Given - Provider: Jolie Kelley RN)0501 (Given - Provider: Jolie Kelley RN)0951 (Given - Provider: Ricarda Albert RN) HYDROmorphone (DILAUDID) injection 0.5 mg (CANCELED) 0.5 mg, intravenous, Administer over 2 Minutes, Every 4 hours PRN, breakthrough pain, Starting on Mon08/14/23 at 1800 0823 (Given - Provider: Freda Geren RN)1851 (Given - Provider: Freda Green RN) morphine injection 2 mg (CANCELED) 2 mg, intravenous, Administer over 4 Minutes, Every 4 hours PRN, 3rd line for pain, Starting on Mon08/14/23 at 1759 0244 (Given - Provider: Jolie Kelley RN)1123 (Given - Provider: Freda Green RN)1534 (Given - Provider: Freda Green RN)2135 (Given - Provider: Jolie Kelley RN) 0159 (Given - Provider: Jolie Kelley RN)0809 (Given - Provider: Freda Green RN) ondansetron (ZOFRAN) injection 4 mg 4 mg, intravenous, Administer over 2 Minutes, Once as needed, nausea, vomiting, If patient unable to tolerate PO, Starting on Mon08/14/23 at 1207, For 1 dose, Do not administer if patient had 8mg administered within 6 hours of patient presenting to ED Do not administer if patient was formally diagnosed with prolonged QT syndrome ondansetron (ZOFRAN) injection 4 mg(Linked Group 2) 4 mg, intravenous, Administer over 2 Minutes, Every 6 hours PRN, nausea, vomiting, if not tolerating PO, Starting on Mon08/14/23 at 1755, Indications: Nausea and Vomiting 1534 (Given - Provider: Freda Green RN) 1522 (Given - Provider: Freda Green RN) ondansetron ODT (ZOFRAN-ODT) disintegrating tablet 4 mg 4 mg, oral, Once as needed, nausea, vomiting, If able to tolerate PO, Starting on Mon08/14/23 at 1207, For 1 dose, Do not administer if patient had 8mg administered within 6 hours of patient presenting to ED Do not administer if patient was formally diagnosed with prolonged QT syndrome ondansetron ODT (ZOFRAN-ODT) disintegrating tablet 4 mg(Linked Group 2) 4 mg, oral, Every 6 hours PRN, nausea, vomiting, Starting on Mon08/14/23 at 1755, Indications: Nausea and Vomiting 1534 (See Alternative - Provider: Freda Green RN) 1522 (See Alternative - Provider: Freda Green RN) ramelteon (ROZEREM) tablet 8 mg 8 mg, oral, Nightly PRN, sleep, Starting on Mon08/14/23 at 1755, Indications: Sleep-Onset Insomnia sodium chloride 0.9% flush 0.5-20 mL 0.5-20 mL, intra-catheter, As needed, line care, Starting on Mon08/14/23 at 1755, Flush volume based on line type and size. Flush before and after each use. Linked Groups Order Group 1: dextrose (GLUTOSE) 40 % gel 15 gJump to med 15 g, oral, Every 15 min PRN, low blood sugar, blood glucose less than 70 mg/dL, Starting on Mon08/14/23 at 1844, If patient is alert and able to eat/drink, give 15 gm glucose or one juice (4 fluid ounces) NOT ORANGE JUICE. After treatment for hypoglycemia, recheck BG followed by treatment every 15 minutes until the BG is greater than 100 mg/dL. Then check BG 1 hour post-treatment. If BG is less than 100 mg/dL, repeat Q15 minute BG checks and treatment. Call MD for each episode of hypoglycemia. MANGLE OPERATOR GARMENTS STATES GLUTOSE-15 CONTAINS GLUCOSE 40% W/W (50% W/V), Indications: hypoglycemic disorder Or dextrose (D10W) 10% bolus 250 mLJump to med 250 mL, intravenous, at 1,000 mL/hr, Administer over 15 Minutes, Every 15 min PRN, blood glucose less than 70 mg/dL and UNABLE to swallow/take PO glucose/juice., Starting on Mon08/14/23 at 1844, After treatment for hypoglycemia, recheck BG followed by treatment every 15 minutes until the BG is greater than 100 mg/dL. Then check BG 1 hour post treatment. If BG is less than 100 mg/dL, repeat Q15 minute BG checks and treatment. Call MD for each episode of hypoglycemia., Indications: hypoglycemic disorder Group 2: ondansetron ODT (ZOFRAN-ODT) disintegrating tablet 4 mgJump to med 4 mg, oral, Every 6 hours PRN, nausea, vomiting, Starting on Mon08/14/23 at 1755, Indications: Nausea and Vomiting Or ondansetron (ZOFRAN) injection 4 mgJump to med 4 mg, intravenous, Administer over 2 Minutes, Every 6 hours PRN, nausea, vomiting, if not tolerating PO, Starting on Mon08/14/23 at 1755, Indications: Nausea and Vomiting documented in this encounter Orders Medications Ordered That Tyler ht Not Have Been Administered Count Last Ordered Date First Ordered Date Carrier Fluids for Secondary Infusion - 0.9% Sodium Chloride 08/14/2023 dextrose (D10W) 10% bolus 250 mL 08/14/19 dextrose (GLUTOSE) 40 % gel 15 g 1 04/22/20 24 enoxaparin (LOVENOX) syringe 40 mg 1 2023 fosfomycin (MONUROL) packet 3 g 2 4 glucagon injection 1 mg 1 08/14/2023 insulin glargine (LANTUS, SE MGLEE) 100 unit/mL injection 26 Units 1 08/14/2023 insulin lispro (HumaLOG, ADM ELOG) 100 unit/mL injection 0-4 Units 1 08/14/2023 insulin lispro (HumaLOG, ADM ELOG) 100 unit/mL injection 22 Units 1 08/14/2023 ondansetron (ZOFRAN) injection 4 mg 1 08/13 ondansetron ODT (ZOFRAN-ODT) disintegrating tablet 4 mg 1 08/14/2023 ramelteon (ROZEREM) tablet 8 mg 1 4 REQUEST FOR PATIENT OWN SUPP LY exemestane (AROMASIN) 25mg tablet 1 08/14/2023 sodium chloride 0.9% flush 0.5-20 mL 1 07/24 Lab Orders Without Results Count Last Ordered D ate First Ordered Date POCT GLUCOSE DEVICE 38 08/18/2023 08/14/19 24 Nursing Count Last Ordered Date First Orde red Date MAINTAIN IV ACCESS 1 08/14/2023 MISCELLANEOUS NURSING CARE ORDER (SPECIFY) 3 08/14/2023 NOTIFY PROVIDER (SPECIFY) 5 08/14/2023 WEIGH PATIENT 1 08/14/2023 Consult Count Last Ordered Date First Orde red Date IP CONSULT TO INFECTIOUS DISEASES 1 024 IP CONSULT TO SOCIAL WORK 1 08/14/2023 IV Count Last Ordered Date First Orde red Date INSERT PERIPHERAL IV 1 08/14/2023 SALINE LOCK IV 2 08/14/2023 Admission Count Last Ordered Date First Orde red Date ADMIT TO INPATIENT 1 08/14/2023 Transfer Count Last Ordered Date First Orde red Date ED TO FLOOR BED REQUEST 1 08/14/2023 Discharge Count Last Ordered Date First Orde red Date DISCHARGE PATIENT 1 08/18/2023 documented in this encounter Care Teams Hop Grower Relationship Specialty Start Date End Date Justen Gale MD [address] [place] [id number] PCP - General 10/09/17 Liu Jerez MD Consulting Physician Gastroenterology 07/28/17 [place] [id number] [address] [facility] [id number] [place] [address] Consulting Physician Pulmonary Disease 08/03/17 Khris Arthur MD [address] [facility] [address] [place] [address] Medical Oncologist/Button Sawyer Medical Oncology 10/23/[address] [place] [address] [facility] [address] [place] [address] Surgeon Orthopedic Surgery 10/23/17 [place] [address] [facility] [address] [place] [address] Consulting Physician Pain Management 10/23/17 [place] [id number] [facility] [address] [place] [address] Referring Physician General Surgery 01/26/18 [place] [address] [facility] [address] [place] [address] Consulting Physician Neurology 01/26/18 documented as of this encounter
--- OUTSIDE RECORDS SUMMARY | 2024-04-26 04:19 | XMS_ITS | Encounter Summary ---
Author Organization [facility] Healthcare Address [address] [place] [address] Care Team Providers Care Assembler Show Motor Name Role Phone Liu Jerez MD Unavailable Albert Corbin MD Unavailable Justen Gale MD Primary Care Provider Khris Arthur MD Unavailable [phone] Ko Melendez MD Unavailable [phone] John Paul Moyer MD Unavailable Annel Rod MD Unavailable Anali MARSHALL MD, Carlos M. Unavailable Reason for Visit * Reason Comments Shortness of Breath Hyperglycemia Encounter Details Date Type Department Care Team (Late st Contact Info) Description 05/11/2023 12:48 PM TERMINAL MAKE UP OPERATOR - 05/11/2023 2:29 PM TERMINAL MAKE UP OPERATOR Emergency [facility] Emergency Department [address] [place] [id number] Discharge Disposition: Left without being seen Social History Tobacco Use Types Packs/Day Years [...] often do you attend chur ch or episcopal services? Never 02/11/2022 Do you belong to any clubs o r organizations such as alevism groups, unions, fraternal or athletic groups, or [...] slept in a fpc (including now)? No 02/11/2022 Personal Safety Answer Date Recorded Have you ever been in or are you currently in a harmful physical or emotional relationship or is someone making you feel afraid or unsafe? Denies 05/11/2023 Comments No Sex and Gender Information Value Date Recorded Sex Assigned at Not on file Legal Sex Female 12:24 AM TERMINAL MAKE UP OPERATOR Gender Identity Not on file Sexual Orientation Not on file documented as of this encounter Last Filed Vital Signs Vital Sign Reading Time Taken Comments Blood Pressure 145/85 05/11/2023 12:57 PM TERMINAL MAKE UP OPERATOR Pulse 73 05/11/2023 12:57 PM TERMINAL MAKE UP OPERATOR Temperature 37 ??C (98.6 ??F) 05/11/2023 1:28 PM TERMINAL MAKE UP OPERATOR Respiratory Rate 18 05/11/2023 12:57 PM TERMINAL MAKE UP OPERATOR Oxygen Saturation 95% 05/11/2023 12:57 PM TERMINAL MAKE UP OPERATOR Inhaled Oxygen Concentration - - Weight - - Height - - Body Mass Index - - documented in this encounter Medications at Time of Discharge albuterol HFA (PROVENTIL HFA,VENTOLIN HFA,PROAIR HFA) 90 mcg/actuation inhaler Inhale 2 puffs every 6 (six) hours as needed for wheezing or shortness of breath 04/19/2021 BD Ultra-Fine Short Pen Needle 31 gauge x 5/16 needle USE 6 TIMES DAILY DIRECTED 06/24/2021 blood glucose diagnostic (Providence TherapyTouch Ultra Test) strip 4 (four) times a [...] by mouth nightly 90 tablet 3 03/21/2023 naloxone (NARCAN) 4 mg/actuation spray,non-aerosol 05/13/2021 oxyBUTYnin XL (DITROPAN XL) 15 mg 24 hr tablet Take 1 tablet (15 mg total) by mouth daily 06/28/2022 rOPINIRole (REQUIP) 5 mg tablet Take 1 tablet (5 mg total) by mouth nightly Taken at 2100 amitriptyline (ELAVIL) 25 mg tablet Take 25 mg by mouth nightly 05/21/2018 4 HumaLOG 100 unit/mL pen for injection 07/14/2022 [...] 2 (two) times a day 04/27/2022 4 methocarbamoL (ROBAXIN) 500 mg tablet Take [...] Discharge Disposition Disposition Code Departure Means Destination Left without being seen documented in this encounter ED Notes * Yesi Rosas, NURIS - 05/11/2023 12:54 PM CST Pt c/o nausea and felling unwell today. Pt began taking amoxicillin for dx of strep throat on 04/28. Pt states she did not start the antibiotics bc she was visiting and staying with her grandchild at [facility]. Today she had someone bring her the prescribed amoxicillin. Pt also states she had blood cultures drawn at that time and was called a few days after and was told her blood cultures were +. No new antibiotic as prescribed at that time. Pt states she feels SOB and fatigued. INAL MAKE UP OPERATOR documented in this encounter Miscellaneous Notes * ED Pre-Arrival Note - Magda Liu RN - 05/11/2023 11:45 AM TERMINAL MAKE UP OPERATOR Pre-Arrival Note Transfer from [facility], pt seeing family at [facility], became light headed and SOB, initiating workup and then tx to ED. Dr. Zamora from [facility]. Accepted by Dr. Aj. Magda Liu RN INAL MAKE UP OPERATOR documented in this encounter Plan of Treatment Not on file documented as of this encounter Procedures Procedure Name Priority Date/Time Associated Diagnosis Comments POCT GLUCOSE DEVICE Routine 05/11/2023 1 2:53 PM TERMINAL MAKE UP OPERATOR POCT KETONE, BLOOD Routine 05/11/2023 12 :53 PM TERMINAL MAKE UP OPERATOR documented in this encounter Results * (ABNORMAL) POCT glucose (05/11/2023 12:53 PM TERMINAL MAKE UP OPERATOR) Glucose, POC 211(H) 70 - 199 mg/dL [facility] Blood 05/11/2023 12:5 3 PM TERMINAL MAKE UP OPERATOR 05/11/2023 12:53 PM TERMINAL MAKE UP OPERATOR Reina De La Paz MD LAB POCT ORDERAB LES - DEVICE Final Result Performing Organization Address City/[facility]/ZIP Co de Phone Number [facility] [place] [address] * POCT ketone, blood (05/11/2023 12:53 PM TERMINAL MAKE UP OPERATOR) Ketones, Blood, POC 0.1 0.0 - 0.5 mmol/L [facility] Blood 05/11/2023 12:5 3 PM TERMINAL MAKE UP OPERATOR 05/11/2023 12:53 PM TERMINAL MAKE UP OPERATOR Reina De La Paz MD LAB POCT ORDERAB LES - DEVICE Final Result Performing Organization Address City/[facility]/ZIP Co de Phone Number [facility] [place] [address] documented in this encounter Visit Diagnoses Not on filedocumented in this encounter Care Teams Assembler Show Motor Relationship Specialty Start Date End Date Justen Gale MD [address] [id number] PCP - General 10/09/17 Liu Jerez MD Consulting Physician Gastroenterology 07/28/17 [place] [address] [facility] [address] [place] [address] Consulting Physician Pulmonary Disease 08/03/17 Khris Arthur MD [address] [facility] [address] [place] [address] Medical Oncologist/Food Production Associate Medical Oncology 10/23/17 [place] [address] [facility] [address] [place] [address] Surgeon Orthopedic Surgery 10/23/17 [place] [address] [facility] [address] [place] [address] Consulting Physician Pain Management 10/23/17 [place] [address] [facility] [address] [place] [address] Referring Physician General Surgery 01/26/18 [place] [address] [facility] [address] [place] [address] Consulting Physician Neurology 01/26/18 documented as of this encounter
--- OUTSIDE RECORDS SUMMARY | 2024-04-26 04:19 | XMS_ITS | Encounter Summary ---
Author Organization [facility] Address [address] [place] [address] Phone Care Team Providers Care Port Warden Name Role Phone Liu Jerez MD Unavailable Albert Corbin MD Unavailable Justen Gale MD Primary Care Provider Khris Arthur MD Unavailable [phone] Ko Melendez MD Unavailable John Paul Moyer MD Unavailable Annel Rod MD Unavailable Anali MARSHALL MD, Carlos M. 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 Bone disorder Khris Arthur MD [address] [facility] [address] [place] [address] Phone: tel: fax: [facility] [address] [facility] [address] [place] [address] Phone: tel: Referral ID Status Reason Start Date Expiration Date V isits Requested Visits Authorized [id number] Authorized 08/02/2022 07/31/2024 1 60 Encounter Details Date Type Department Care Team (Late st Contact Info) Description 08/16/2022 3:30 PM CDT Infusion [facility] Oncology [address] [facility] [address] [place] [address] Malignant neoplasm of upper-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, unspecified estrogen receptor status (HCC) (Primary Dx); Malignant neoplasm of upper-inner quadrant of left breast in female, estrogen receptor positive (HCC); 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 Never 02/11/2022 Do you belong to any clubs o r organizations such as sikhism groups, unions, fraternal or athletic groups, or [...] slept in a long-term (including now)? 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 Gender Identity Not on file Sexual Orientation Not on file documented as of this encounter Last Filed Vital Signs Vital Sign Reading Time Taken Comments Blood Pressure 149/90 08/16/2022 4:06 PM CDT Pulse 85 08/16/2022 4:06 PM CDT Temperature 36.9 ??C (98.4 ??F) 08/16/2022 4:36 PM CD T Respiratory Rate 18 08/16/2022 4:06 PM CDT Oxygen Saturation 98% 08/16/2022 4:06 PM CDT Inhaled Oxygen Concentration - - Weight 130.4 kg (287 lb 6.4 oz) 08/16/2022 4:06 PM CDT Height - - Body Mass Index 54.33 07/05/2022 8:15 PM CDT documented in this encounter Nursing Notes * Nelly Batista - 08/16/2022 3:30 PM CDT Oncology Nursing Note [facility] Karly Marques is a 67 y.o. female who presents for treatment Reclast. Pre-treatment Nursing Assessment Nursing Assessment Appetite: Good Diarrhea: No Constipation: No Last BM Date: 08/15/22 Existing Patients: Any falls since your last visit?: No New Patients: Any falls since your last visit?: N/A Fatigue: Occassional Mouth Sores: No Nausea/Vomiting: No Neurological symptoms: No Pain: Yes (chronic back pain) Peripheral Neuropathy: No Pt states has potential to be ?: No Shortness of Breath?: No Skin Condition/Temp: Warm, Dry Oral Mucosa Grade: Normal (0) Abdomen: Soft Swelling: Yes Swelling location: LLE, RLE (due to recent IVFs) BP: 149/90 Temp: 36.9 ??C (98.4 ??F) Temp src: Transdermal Pulse: 85 Resp: 18 SpO2: 98 % Weight: 130.4 kg (287 lb 6.4 oz) Pain Score: 4 Treatment Patient: met treatment parameters Pre blood return: Brisk Karly Marques tolerated treatment well. Patient was frequently observed and monitored throughout the administration of their treatment. Additional Notes: Team notified of patient's sodium level of 132. Post blood return: Brisk IV access post infusion: NS Patient Education Treatment Education: Information/teaching given to patient including process and procedure related to today's visit Response: Verbalizes understanding Discharge Plan Discharge instructions given to patient. Future appointments given and reviewed with treatment plan. 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 Bone disorder Disorder of bone and cartilage, unspecified documented in this encounter Administered Medications Inactive Administered Medications - up to 3 most recent administrations Medication Order MAR Action Action Date Dose Rate Site zoledronic hekf-psgjoiwG-pdrdl (RECLAST) 5 mg/100 mL premix 5 mg 5 mg, intravenous, at 300 mL/hr, Administer over 20 Minutes, Once, On Tu08/16/22 at 1715, For 1 doseIndications:Malignant neoplasm of upper-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, unspecified estrogen receptor status (HCC),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,Bone disorder New Bag 08/16/2022 5:11 PM CDT 5 mg 300 mL /hr documented in this encounter Orders Medications Ordered That Tyler ht Not Have Been Administered Count Last Ordered Date First Ordered Date zoledronic tnxw-pulxqmdN-fig er (RECLAST) 5 mg/100 mL premix 5 mg 1 08/16/2022 Nursing Count Last Ordered Date First Orde red Date ONCBCN TREATMENT PARAMETERS 1 1 08/16/2022 VITAL SIGNS 1 08/16/2022 Appointment Requests Count Last Ordered Date Fi rst Ordered Date INFUSION APPT REQUEST 60 MIN 1 08/16/2022 documented in this encounter Care Teams Port Warden Relationship Specialty Start Date End Date Justen Gale MD [address] [address] PCP - General 10/09/17 Liu Jerez MD Consulting Physician Gastroenterology 07/28/17 [place] [address] [facility] [address] [place] [address] Consulting Physician Pulmonary Disease 08/03/17 Khris Arthur MD [address] [facility] [address] [place] [address] Medical Oncologist/Design Technician Medical Oncology 10/23/17 [place] [address] [facility] [address] [place] [address] Surgeon Orthopedic Surgery 10/23/17 [place] [address] [address] Consulting Physician Pain Management 10/23/17 [place] [address] [facility] [address] [place] [address] Referring Physician General Surgery 01/26/18 [place] [address] [facility] [address] [place] [address] Consulting Physician Neurology 01/26/18 documented as of this encounter
--- OUTSIDE RECORDS SUMMARY | 2024-04-26 04:19 | XMS_ITS | Encounter Summary ---
Author Organization 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 Unavailable [phone] Reason for Visit * Reason Comments Pelvic Pain Encounter Details Date Type Department Care Team (Late st Contact Info) Description 02/03/2023 4:48 PM CDT - 02/03/2023 6:23 PM CDT Emergency [facility] Emergency Department [address] [place] [id number] Right groin pain (Primary Dx); Hyperglycemia; Elevated blood pressure reading Discharge Disposition: Discharge to home or self [...] often do you attend chur ch or islam services? 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 Gender Identity Not on file Sexual Orientation Not on file documented as of this encounter Last Filed Vital Signs Vital Sign Reading Time Taken Comments Blood Pressure 134/85 02/03/2023 5:00 PM CDT Pulse 95 02/03/2023 5:00 PM CDT Temperature 37.1 ??C (98.8 ??F) 02/03/2023 2:38 PM CD T Respiratory Rate 18 02/03/2023 5:00 PM CDT Oxygen Saturation 99% 02/03/2023 5:00 PM CDT Inhaled Oxygen Concentration - - Weight 126.2 kg (278 lb 3.5 oz) 02/03/2023 2:38 PM CDT Height 154.9 cm (5' 1 ) 02/03/2023 2:38 PM CDT Body Mass Index 52.57 02/03/2023 2:38 PM CDT documented in this encounter Discharge Instructions * Discharge Instructions* Rosa Cruz PA - 02/03/2023 6:00 PM CDT Please call your primary care provider to let them know that you were seen in the ED and schedule aclose follow-up appointment for re-evaluation of your symptoms. * Attachments The following attachments cannot be sent through Care Everywhere. * Groin Strain (AfterCare(R) Instructions(ER/ED)) (Burmese) documented in this encounter Medications at Time of Discharge albuterol HFA (PROVENTIL HFA,VENTOLIN HFA,PROAIR HFA) 90 mcg/actuation inhaler Inhale 2 puffs every 6 (six) hours as needed for wheezing or shortness of breath 04/19/2021 BD Ultra-Fine Short Pen Needle 31 gauge x 5/16 needle USE 6 TIMES DAILY DIRECTED 06/24/2021 blood glucose diagnostic (PicBadges Ultra Test) strip 4 (four) times a [...] 11/22/2022 4 documented as of this encounter Ordered Prescriptions Prescription Sig Dispense Quantity Refills Last Filled Start Date End Date methocarbamoL (ROBAXIN) 500 mg tablet Take 1 tablet (500 mg total) by mouth 2 (two) times a day 6 tablet 02/03/2023 08/24/2023 documented in this encounter Discharge Disposition Disposition Code Departure Means Destination Comment s Discharge to home or self care documented in this encounter ED Notes * Rosa Cruz PA - 02/03/2023 5:58 PM CDT CHIEF COMPLAINT: Chief Complaint Patient presents with Pelvic Pain HPI 6:08 PM Karly Marques is a 67 y.o. female presenting to the ED c/o right groin pain since last night. States she noticed the pain when she turned over in bed. Wonders if she pulled a muscle. Has had persistent pain since then that is worse with movement and walking. Some associated nausea but no vomiting. No urinary symptoms. No fever. Previous abdominal surgeries include section, cholecystectomy, hernia repair. History provided by patient PCP: Justen Gale MD PAST MEDICAL HISTORY Past Medical History: Diagnosis Date Adiposity obesity Breast CA (HCC) Cancer ([facility]/HCC) (HCC) breast CHF (congestive heart failure) ([facility]) (HCC) Depression Depression Diabetes (HCC) Disorder of thyroid Thyroid disease DVT (deep venous thrombosis) ([facility]) ([facility]) HX OTHER MEDICAL restless leg syndrome HX OTHER MEDICAL RLS Hypertension Hypertension Osteoarthritis osteoarthritis PE (pulmonary thromboembolism) ([facility]) ([facility]) Sleep apnea PAST SURGICAL HISTORY [...] syndrome; MEDICATIONS GIVEN IN THE ED Medications HYDROcodone-acetaminophen (NORCO) 5-325 mg per tablet 1 tablet (1 tablet oral Given 02/03/23 1634) ioversoL (OPTIRAY 350) syringe 100 mL (100 mL intravenous Contrast Given 02/03/23 1656) CURRENT HOME MEDICATIONS No current facility-administered medications [...] Triage Vitals Temp Pulse Resp BP SpO2 02/03/23 1438 02/03/23 1438 02/03/23 1438 02/03/23 1442 02/03/23 143 37.1 ??C (98.8 ??F) 86 20 (!) 150/103 97 % Temp src Heart Rate Source Patient Position BP Location FiO2 (%) 02/03/231437 -- -- -- -- Oral Height Height Method Weight Weight Method 02/03/23 1438 02/03/23 1438 02/03/23 14302/03/231437 1.549 m (5' 1 ) Stated 126.2 kg (278 lb 3.5 oz) Standing scale Physical Exam Vitals and nursing note reviewed. Constitutional: General: She is not in acute distress. Appearance: She is obese. She is not toxic-appearing. HENT: Head: Normocephalic and atraumatic. Nose: Nose normal. Eyes: General: No scleral icterus. Cardiovascular: Rate and Rhythm: Normal rate and regular rhythm. Pulmonary: Effort: Pulmonary effort is normal. Abdominal: General: There is no distension. Palpations: Abdomen is soft. Tenderness: There is no guarding. Comments: Mild tenderness to palpation right inguinal region. No swelling or erythema noted to the skin. No rashes or ecchymosis. Musculoskeletal: Cervical back: Neck supple. Skin: General: Skin is warm and dry. Neurological: Mental Status: She is alert and oriented to person, place, and time. Psychiatric: Mood and Affect: Mood normal. Behavior: Behavior normal. LABS Labs Reviewed URINALYSIS AND REFLEX TO MICROSCOPIC AND CULTURE - Abnormal Result Value Color, ur Yellow Clarity, ur Clear Specific gravity, ur 1.024 pH, urine 5.0 Protein, ur ql Negative Glucose, ur ql 2+ (*) Ketones, ur Negative Bilirubin, ur Negative Blood, ur Negative Urobilinogen, ur <2.0 Nitrite, ur Negative Leukocyte esterase, ur Negative UA reflex comment Value: Reflex conditions for microscopic UA and culture not met. COMPREHENSIVE METABOLIC PANEL - Abnormal Sodium 135 Potassium, pl 4.7 Chloride 98 CO2 28 Anion gap 9 BUN 17 Creatinine 0.90 Glucose 270 (*) Calcium 10.0 Bilirubin, total 0.5 Protein, pl 8.5 Albumin 4.1 Alk phos 88 ALT 21 AST 23 TROPONIN T HIGH-SENSITIVITY 2-HOUR - Abnormal Trop T hs 20 (*) Trop T hs delta -2 Trop T hs interp Insignificant TROPONIN T HIGH-SENSITIVITY SERIES (BASELINE, 2HR, 4HR, 6HR) - Abnormal Trop T hs 22 (*) CBC WITH AUTO DIFFERENTIAL WBC 9.3 Hgb 13.9 Hct 42.8 Plt 290 MPV 9.6 RBC 4.80 MCV 89.2 MCH 29.0 MCHC 32.5 RDW CV 13.7 RDW SD 44.7 NRBC abs 0.00 LIPASE Lipase 17 DIFFERENTIAL AUTO Neutrophil abs 5.5 Imm gran abs 0.0 Lymphocyte abs 2.7 Monocyte abs 0.6 Eosinophil abs 0.3 Basophil abs 0.1 Neutrophil pct 59.7 Imm gran pct 0.3 Lymphocyte pct 29.6 Monocyte pct 6.8 Eosinophil pct 3.1 Basophil pct 0.5 EGFR eGFR 71 TROPONIN T HIGH-SENSITIVITY SERIES (BASELINE, 2HR, 4HR, 6HR) RADIOLOGY CT Abdomen Pelvis W Contrast Result Date: 02/03/2023 Narrative: EXAM DESCRIPTION: CT ABDOMEN PELVIS W CONTRAST REASON FOR STUDY: Abdominal pain, acute, nonlocalized Pt reports R sided suprapubic pain/lower abd pain that woke her up out of her sleep this morning. Also reports N/V. No fevers. Pt reports hx of ovary removed but cannot remember which side. Hx of hernia repairs TECHNIQUE: CT scan of the abdomen and [...] INTRAVENOUS SYRINGE injected via intravenous COMPARISON: CT of the abdomen and pelvis dated 10/05/2022. REFERENCE: Per ACR white paper recommendations, unless otherwise specified no follow-up imaging is recommended for incidental renal and adrenal lesions per consensus r ecommendations based on imaging criteria. Further lab evaluation could be pursued based on clinicalfindings. FINDINGS: LOWER CHEST: No significant pulmonary abnormalities. No effusion. Mitral annular calcifications are noted. LIVER: Normal size. No identified cystic or solid masses. GALLBLADDER: Harry rgically absent. BILE DUCTS: No intrahepatic or extrahepatic ductal dilatation. SPLEEN: Normal size. No focal lesions. PANCREAS: No identified cystic or solid masses. No significant calcifications. No adjacent inflammation or peripancreatic fluid collections. Pancreatic duct not dilated. ADRENALS: Normal. KIDNEYS/URINARY TRACT: Stable 1.9 cm benign cyst within the interpolar region of the right kidney. No enhancing renal masses. No visualized stones. No hydronephrosis or hydroureter. Symmetric enhancement. Urinary bladder is unremarkable. GI: No dilated bowel loops. No obvious wall thickening. Normal appendix. Mild scattered colonic diverticula of the descending and sigmoid colon without evidence of acute diverticulitis.. PERITONEUM: Sequela of prior ventral abdominal wall hernia repair are again seen, not significantly changed. No ascites or free air. RETROPERITONEUM: No mass or adenopathy. REPRODUCTIVE: No significant abnormality. VASCULATURE: No abdominal aortic aneurysm. MUSCULOSKE LETAL: No acute abnormality. Levoconvex curvature of the lumbar spine. Degenerative changes are seen throughout the spine, bilateral sacroiliac joints and pubic symphysis. OTHER: No other abnormality. IMPRESSION: 1. No acute intra- abdominal/pelvic abnormality. 2. Mild colonic diverticulosis withoutevidence of acute diverticulitis. Additional findings and postoperative changes as detailed. THIS IS AN ELECTRONICALLY VERIFIED FINAL REPORT 02/03/2023 5:34 PM - Electronically signed by Justen Shah M.D. MF: PAUL Report ID: [id number] Reading Location: [id number] EKG EKG: NSR with no acute ischemic changes ED COURSE/MEDICAL DECISION MAKING Differential diagnosis included but not limited to muscle strain versus hernia versus appendicitis versus ovarian cyst versus Repeat vital signs within normal limits. WBC normal. CMP unremarkable. UA with evidence of infection. CT abd/pelvis with no acute findings. Normal appendix. Discussed findings with patient. She is comfortable discharge home to follow up with her PCP for persistent issues. Non toxic appearing Procedures FINAL IMPRESSION Right groin pain Hyperglycemia Elevated blood pressure reading DISPOSITION: Home All findings were discussed with patient. Pt agreeable with plan. Non toxic appearing, vitals stable. Patient stable for discharge home. Given return to ER precautions Close outpatient follow-up with a low threshold to return has been mandated , concerning symptoms have been discussed, and this patient expresses understanding PATIENT INSTRUCTED TO FOLLOW UP Justen Gale MD [address] [place] [id number] In 1 week DISCHARGE MEDICATIONS Your medication list CONTINUE taking [...] HIPREX 1,000 mg, oral, 2 times daily naloxone 4 [...] Nightly This examination was transcribed using the [employer] voice recognition system without human fashion adviser. In an effort to expedite patient care, this report has not been adjusted for typographical, grammatical, and syntax by a trained medical technologist hematology. Rosa Cruz PA 02/03/23 180 Cosigned by Samson Barrientos MD at 02/03/2023 8:35 PM CDT Associated attestation - Samson Barrientos MD - 02/03/2023 8:35 PM CDT ED Attestation I was present in the emergency department for consultation on this patient. This patient was not presented to me nor was I asked to evalute the patient before they were discharged. 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 * Micaela King RN - 02/03/2023 2:35 PM CDT Pt reports R sided suprapubic pain/lower abd pain that woke her up out of her sleep this morning. Also reports N/V. No fevers. documented in this encounter Plan of Treatment Pending Results Name Type Priority Associated Diagnoses Date /Time Troponin T high-sensitivity series (baseline, 2hr, 4hr, 6hr) Lab STAT 02/03/2023 2:44 PM CDT Scheduled Orders Name Type Priority Associated Diagnoses Orde r Schedule Troponin T high-sensitivity series (baseline, 2hr, 4hr, 6hr) Lab STAT Once for 1 Occur rences starting 02/03/2023 until 02/03/2023 documented as of this encounter Procedures Procedure Name Priority Date/Time Associated Diagnosis Comments CT ABDOMEN PELVIS W CONTRAST ED 02/03/2023 4:56 PM CDT TROPONIN T HIGH-SENSITIVITY 2-HOUR Timed 02/03/2023 4:35 PM CDT ECG 12-LEAD Routine 02/03/2023 3:57 PM CDT URINALYSIS AND REFLEX TO MICROSCOPIC AND CULTURE STAT 02/03/2023 2:50 PM CDT TROPONIN T HIGH-SENSITIVITY SERIES (BASELINE, 2HR, 4HR, 6HR) STAT 02/03/2023 2:44 PM CDT EGFR STAT 02/03/2023 2:44 PM CDT DIFFERENTIAL AUTO STAT 02/03/2023 2:4 4 PM CDT CBC WITH AUTO DIFFERENTIAL STAT 02/03/2023 2:44 PM CDT LIPASE STAT 02/03/2023 2:44 PM CDT COMPREHENSIVE METABOLIC PANEL STAT 02/03/2023 2:44 PM CDT documented in this encounter Results * CT Abdomen Pelvis W Contrast (02/03/2023 4:56 PM CDT) Anatomical Region Laterality Modality Body N/A Computed Tomogra phy 02/03/2023 5:27 PM CDT Narrative 02/03/2023 5:34 PM CDT EXAM DESCRIPTION: ?? CT ABDOMEN PELVIS W CONTRAST REASON FOR STUDY: ?? Abdominal pain, acute, nonlocalized ?? Pt reports R sided suprapubic pain/lower abd pain that woke her up out of her sleep this morning. Also reports N/V. No fevers. Pt reports hx of ovary removed but cannot remember which side. Hx of hernia repairs ?? TECHNIQUE: CT scan of the abdomen and [...] injected via ?? intravenous COMPARISON: ?? CT of the abdomen and pelvis dated 10/05/2022. REFERENCE: Per ACR white paper recommendations, unless otherwise specified no follow-up imaging is recommended for incidental renal and adrenal lesions per consensus recommendations based on imaging criteria. Further lab evaluation could be pursued based on clinical findings. FINDINGS: LOWER CHEST: ?? No significant pulmonary abnormalities. No effusion. ?? Mitral annular calcifications are noted. LIVER: ?? Normal size. ??No identified cystic or solid masses. GALLBLADDER: ?? Surgically absent. BILE DUCTS: ?? No intrahepatic or extrahepatic ductal dilatation. SPLEEN: ?? Normal size. ??No focal lesions. PANCREAS: ?? No identified cystic or solid masses. No significant calcifications. No adjacent inflammation or peripancreatic fluid collections. Pancreatic duct not dilated. ?? ADRENALS: ?? Normal. KIDNEYS/URINARY TRACT: Stable 1.9 cm benign cyst within the interpolar region of the right kidney. ?? No enhancing renal masses. ??No visualized stones. No hydronephrosis or hydroureter. Symmetric enhancement. ?Urinary bladder is unremarkable. GI: ?? No dilated bowel loops. No obvious wall thickening. ??Normal appendix. ?? Mild scattered colonic diverticula of the descending and sigmoid colon without evidence of acute diverticulitis.. PERITONEUM: Sequela of prior ventral abdominal wall hernia repair are again seen, not significantly changed. ?? No ascites or free air. RETROPERITONEUM: ?? No mass or adenopathy. REPRODUCTIVE: ?? No significant abnormality. VASCULATURE: ?? No abdominal aortic aneurysm. MUSCULOSKELETAL: ?? No acute abnormality. ?? Levoconvex curvature of the lumbar spine. ??Degenerative changes are seen throughout the spine, bilateral sacroiliac joints and pubic symphysis. OTHER: ?? No other abnormality. IMPRESSION: 1. ?? No acute intra-abdominal/pelvic abnormality. 2. ??Mild colonic diverticulosis without evidence of acute diverticulitis. ?? Additional findings and postoperative changes as detailed. THIS IS AN ELECTRONICALLY VERIFIED FINAL REPORT 02/03/2023 5:34 PM - Electronically signed by ??Justen Shah M.D. MF: PAUL D: ??02/03/2023 5:34 PM T: ??02/03/2023 5:34 PM Report ID: [id number] Reading Location: ??[id number] Procedure Note Justen Shah, DO - 02/03/2023 EXAM DESCRIPTION: CT ABDOMEN PELVIS W CONTRAST REASON FOR STUDY: Abdominal pain, acute, nonlocalized Pt reports R sided suprapubic pain/lower abd pain that woke her up out ofher sleep this morning. Also reports N/V. No fevers. Pt reports hx of ovary removed but cannot remember which side. Hx of hernia repairs TECHNIQUE: CT scan of the abdomen and pelvis performed with intravenousand without oral contrast using helical scanning technique with dynamic intravenous contrast injection. Reconstructed coronal and sagittal MPRimages reviewed. All images stored on PACS. Automated exposure control was usedas a dose optimization technique for this examination. CONTRAST TYPE/DOSE: 100mL of IOVERSOL 350 MG IODINE/ML INTRAVENOUSSYRINGE injected via intravenous COMPARISON: CT of the abdomen and pelvis dated 10/05/2022. REFERENCE: Per ACR white paper recommendations, unless otherwise specifiedno follow-up imaging is recommended for incidental renal and adrenal lesionsper consensus recommendations based on imaging criteria. Further labevaluation could be pursued based on clinical findings. FINDINGS: LOWER CHEST: No significant pulmonary abnormalities. Noeffusion. Mitral annular calcifications are noted. LIVER: Normal size. No identified cystic or solid masses. GALLBLADDER: Surgically absent. BILE DUCTS: No intrahepatic or extrahepatic ductal dilatation. SPLEEN: Normal size. No focal lesions. PANCREAS: No identified cystic or solid masses. No significant calcifications. No adjacent inflammation or peripancreatic fluidcollections. Pancreatic duct not dilated. ADRENALS: Normal. KIDNEYS/URINARY TRACT: Stable 1.9 cm benign cyst within the interpolarregion of the right kidney. No enhancing renal masses. No visualized stones.No hydronephrosis or hydroureter. Symmetric enhancement. Urinary bladderis unremarkable. GI: No dilated bowel loops. No obvious wall thickening. Normalappendix. Mild scattered colonic diverticula of the descending and sigmoid colonwithout evidence of acute diverticulitis.. PERITONEUM: Sequela of prior ventral abdominal wall hernia repair areagain seen, not significantly changed. No ascites or free air. RETROPERITONEUM: No mass or adenopathy. REPRODUCTIVE: No significant abnormality. VASCULATURE: No abdominal aortic aneurysm. MUSCULOSKELETAL: No acute abnormality. Levoconvex curvature of thelumbar spine. Degenerative changes are seen throughout the spine, bilateral sacroiliac joints and pubic symphysis. OTHER: No other abnormality. IMPRESSION: 1. No acute intra-abdominal/pelvic abnormality. 2. Mild colonic diverticulosis without evidence of acute diverticulitis. Additional findings and postoperative changes as detailed. THIS IS AN ELECTRONICALLY VERIFIED FINAL REPORT 02/03/2023 5:34 PM - Electronically signed by Justen MILLER: PAUL Report ID: [id number] Reading Location: [place] [address] [facility] [place]ED[place] Final Result * (ABNORMAL) Troponin T high-sensitivity 2-hour (02/03/2023 4:35 PM CDT) Trop T hs 20(H) <=14 ng/L Comment: Ref Range High Interpretive Data For further hscTnT resources including the diagnostic algorithm and an aid in interpretation, copy and paste this link: https://nrl.testcatalog.org/show/hsTrop Current Interpretive Data last revised 2020. Testing performed by: [facility], [address] [place] [address]., [id number] Trop T hs delta -2 ng/L MARY JANE Comment:Testing performed by : [address] [address] Trop T hs interp Insignificant MARY JANE Comment:Testing performed by : [address] [address] Blood 02/03/2023 4:35 PM CDT 02/03/2023 4:39 PM CDT Rosa MCKEON LAB BLOOD ORDERABLES Final Resu lt Performing Organization Address City/[facility] Co de Phone Number MARY JANE [address] [facility] [place] [address] * ECG 12 lead (02/03/2023 3:57 PM CDT) Ventricular Rate EKG/Min 97 BPM [facility] Atrial Rate [address] [facility] [place]-Interval (MSEC) [address] [facility] QRS-Interval (MSEC) [address] [facility] QT-Interval (MSEC) [address] [facility] QTc [address] [facility] P [place] -[address] [facility] R [place] -[address] [facility] T [place] [address] [facility] Diagnosis Normal sinus rhythm Normal ECG When compared with ECG of 26-JAN-2023 15:24, No significant change was found Confirmed by FRANCY GREWAL M.D. ([id number]) on 02/09/2023 7:18:24 AM [facility] 02/03/2023 3:57 PM CDT 02/09/2023 7:18 AM CDT Rosarupert Cruz PA ECG ORDERABLES Final Result Performing Organization Address City/[facility] Co de Phone Number [facility] * (ABNORMAL) Urinalysis reflex to microscopic and culture Urine (02/03/2023 2:50 PM CDT) Color, ur Yellow Yellow Comment:Testing performed by : [address] [address] Clarity, ur Clear Clear MARY JANE Comment:Testing performed by : [address] [address] Specific gravity, ur 1.024 1.003 - 1.030 MARY JANE Comment:Testing performed by : [address], [place]., [address] pH, urine 5.0 MARY JANE Comment: Interpretive Data ? Urine pH is affected by diet, medications, systemic acid-base disturbances, and renal tubular function. ??pH may affect urinary stone formation. ??For example, urine pH below 6.0 may help reduce the tendency for calcium phosphate stones and pH greater than 6.0 may reduce the tendency for uric acid stone formation. Source: Jerez iiyuma Current Interpretive Data was last revised on 2017 Testing performed by: [address] [address] Protein, ur ql Negative Negative MARY JANE Comment:Testing performed by : [address] [address] Glucose, ur ql 2+(A) Negative MARY JANE Comment:Testing performed by : [address] [address] Ketones, ur Negative Negative MARY JANE Comment:Testing performed by : [address] [address] Bilirubin, ur Negative Negative MARY JANE Comment:Testing performed by : [address] [address] Blood, ur Negative Negative MARY JANE Comment:Testing performed by : [address] [address] Urobilinogen, ur <2.0 <2.0 mg/dL MARY JNAE Comment:Testing performed by : [address] [address] Nitrite, ur Negative Negative MARY JANE Comment:Testing performed by : [facility], [address] [place] [address]., [address] Leukocyte esterase, ur Negative Negative MARY JANE Comment:Testing performed by : [address] [address] UA reflex comment Reflex conditions for microscopic UA and culture not met. MARY JANE Comment:Testing performed by : [facility], [address] [place] [address]., [address] Urine 02/03/2023 2:50 PM CDT 02/03/2023 3:09 PM CDT Rosa MCKEON LAB MICROBIOLOGY - GENERAL ORDE RABLES Final Result Performing Organization Address [facility] Co de Phone Number MARY JANE [address] [place] [address] * (ABNORMAL) Troponin T high-sensitivity series (baseline, 2hr, 4hr, 6hr) (02/03/2023 2:44 PM CDT) Pathologist [facility] Trop T hs 22(H) <=14 ng/L Comment: Ref Range High Interpretive Data For further hscTnT resources including the diagnostic algorithm and an aid in interpretation, copy and paste this link: https://nrl.testcatalog.org/show/hsTrop Current Interpretive Data last revised 2020. Testing performed by: [address] [address] Blood 02/03/2023 2:44 PM CDT 02/03/2023 2:57 PM CDT Rosa MCKEON LAB BLOOD ORDERABLES Final Resu lt Performing Organization Address [facility]/ZIP Co de Phone Number MARY JANE [address] [place] [address] * eGFR (02/03/2023 2:44 PM CDT) Pathologist [facility] eGFR 71 mL/min/1. 73 m2 Comment: Interpretive Data Reference [...] was last reviewed 2021. Testing performed by: [address] [address] Blood 02/03/2023 2:44 PM CDT 02/03/2023 2:57 PM CDT us Rosa MCKEON LAB BLOOD ORDERABLES Final Resu lt MARY JANE PHAM [address] [facility] Department [place] [address] * Differential, auto (02/03/2023 2:44 PM CDT) Neutrophil abs 5.5 1.7 - 6.5 K/cumm Comment:Testing performed by : [address] [address] Imm gran abs 0.0 0.0 - 0.1 K/cumm MARY JANE PHAM Comment:Testing performed by : [address] [address] Lymphocyte abs 2.7 0.8 - 3.3 K/cumm [facility] Comment:Testing performed by : [address] [address] Monocyte abs 0.6 0.2 - 0.8 K/cumm [facility] Comment:Testing performed by : [address], [place]., [address] Eosinophil abs 0.3 0.0 - 0.5 K/cumm [facility] Comment:Testing performed by : [address], [place]., [address] Basophil abs 0.1 0.0 - 0.1 K/cumm [facility] Comment:Testing performed by : [address] [address] Neutrophil pct 59.7 % [facility] Comment: Interpretive Data Percent cell count reference ranges are not reported, since discordance with absolute values may lead to misinterpretation of CBC data. Current Interpretive Data was last revised on 2017. Testing performed by: [address] [address] Imm gran pct 0.3 % [facility] Comment: Interpretive Data Percent cell count reference ranges are not reported, since discordance with absolute values may lead to misinterpretation of CBC data. Current Interpretive Data was last revised on 2017. Testing performed by: [address] [address] Lymphocyte pct 29.6 % [facility] Comment: Interpretive Data Percent cell count reference ranges are not reported, since discordance with absolute values may lead to misinterpretation of CBC data. Current Interpretive Data was last revised on 2017. Testing performed by: [address] [address] Monocyte pct 6.8 % [facility] Comment: Interpretive Data Percent cell count reference ranges are not reported, since discordance with absolute values may lead to misinterpretation of CBC data. Current Interpretive Data was last revised on 2017. Testing performed by: [address] [address] Eosinophil pct 3.1 % [facility] Comment: Interpretive Data Percent cell count reference ranges are not reported, since discordance with absolute values may lead to misinterpretation of CBC data. Current Interpretive Data was last revised on 2017. Testing performed by: [address] [address] Basophil pct 0.5 % MARY JANE PHAM Comment: Interpretive Data Percent cell count reference ranges are not reported, since discordance with absolute values may lead to misinterpretation of CBC data. Current Interpretive Data was last revised on 2017. Testing performed by: [address] [address] Blood 02/03/2023 2:44 PM CDT 02/03/2023 2:57 PM CDT Rosa Cruz [place] LAB BLOOD ORDERABLES Final Resu lt Performing Organization Address [facility] Co de Phone Number [address] [place] [address] * Lipase (02/03/2023 2:44 PM CDT) Pathologist [facility] Lipase 17 10 - 99 Units/L Comment:Testing performed by : [address] [address] Blood (Blood, Venous) 02/03/2023 2:44 PM CDT 02/03/2023 2:57 PM CDT Rosarupert Cruz [place] LAB BLOOD ORDERABLES Final Resu lt Performing Organization Address [facility] Co de Phone Number [address] [address] * (ABNORMAL) Comprehensive metabolic panel (02/03/2023 2:44 PM CDT) Pathologist [facility] Sodium 135 135 - 145 mmol/L Comment:Testing performed by : [address] [address] Potassium, pl 4.7 3.3 - 4.9 mmol/L MARY JANE PHAM Comment: HEMOLYZED: Hemolysis interferes with the above test. Testing performed by: [address] [address] Chloride 98 97 - 110 mmol/L MARY JANE Comment:Testing performed by : [address], [place]., [address] CO2 28 22 - 32 mmol/L MARY JANE Comment:Testing performed by : [address], [place]., [address] Anion gap 9 2 - 15 mmol/L MARY JANE Comment:Testing performed by : [address], [place]., [address] BUN 17 6 - 25 mg/dL [facility] Comment:Testing performed by : [address], [place]., [address] Creatinine 0.90 0.60 - 1.10 mg/dL MARY JANE Comment:Testing performed by : [address], [place]., [address] Glucose 270(H) 70 - 199 mg/dL [facility] Comment: Interpretive Data Fasting glucose >/= 126 [...] was last revised 2022. Testing performed by: [address] [address] Calcium 10.0 8.5 - 10.3 mg/dL [facility] Comment:Testing performed by : [address] [address] Bilirubin, total 0.5 0.1 - 1.2 mg/dL MARY JANE Comment:Testing performed by : [address] [address] Protein, pl 8.5 6.5 - 8.5 g/dL MARY JANE Comment:Testing performed by : [address] [address] Albumin 4.1 3.5 - 5.0 g/dL MARY JANE PHAM Comment:Testing performed by : [address] [address] Alk phos 88 40 - 130 Units/L MARY JANE Comment:Testing performed by : [address] [address] ALT 21 7 - 45 Units/L MARY JANE Comment: HEMOLYZED: Hemolysis interferes with the above test. Testing performed by: [address] [address] AST 23 10 - 45 Units/L MARY JANE Comment: HEMOLYZED: Hemolysis interferes with the above test. Testing performed by: [address] [address] Blood 02/03/2023 2:44 PM CDT 02/03/2023 2:57 PM CDT Rosa MCKEON LAB BLOOD ORDERABLES Final Resu lt MARY JANE [facility] [place] [address] * CBC with auto differential (02/03/2023 2:44 PM CDT) [facility] WBC 9.3 3.8 - 9.9 K/cumm Comment:Testing performed by : [address] [address] Hgb 13.9 11.9 - 15.5 g/dL MARY JANE PHAM Comment: Interpretive Data A reference range for this assay has not been established for patients with an unknown legal sex. Please refer to the laboratory test catalog for established sex-specific reference intervals. Current interpretive data was last revised on 2023. Testing performed by: [address] [address] Hct 42.8 35.6 - 45.5 % MARY JANE PHAM Comment:Testing performed by : [address] [address] Plt 290 150 - 400 K/cumm MARY JANE PHAM Comment:Testing performed by : [address] [address] MPV 9.6 9.1 - 12.3 fL MARY JANE PHAM Comment:Testing performed by : [address] [address] RBC 4.80 3.90 - 5.20 M/cumm MARY JANE PHAM Comment: Interpretive Data A reference range for this assay has not been established for patients with an unknown legal sex. Please refer to the laboratory test catalog for established sex-specific reference intervals. Current interpretive data was last revised on 2023. Testing performed by: [address] [address] MCV 89.2 81.3 - 96.4 fL MARY JANE PHAM Comment:Testing performed by : [address] [address] MCH 29.0 27.1 - 33.3 pg MARY JANE PHAM Comment:Testing performed by : [address] [address] MCHC 32.5 32.3 - 35.7 g/dL MARY JANE PHAM Comment:Testing performed by : [address] [address] RDW CV 13.7 11.1 - 14.9 % MARY JANE PHAM Comment:Testing performed by : [address] [address] RDW SD 44.7 35.7 - 48.1 fL MARY JANE PHAM Comment:Testing performed by : [address] [address] NRBC abs 0.00 0.00 - 0.01 K/cumm MARY JANE PHAM Comment:Testing performed by : [address] [address] Blood (Blood, Venous) 02/03/2023 2:44 PM CDT 02/03/2023 2:57 PM CDT us Rosa MCEKON LAB BLOOD ORDERABLES Final Resu lt MARY JANE [address] [facility] [place] [address] documented in this encounter Visit Diagnoses Diagnosis Right groin pain- Primary Abdominal pain, right lower quadrant Hyperglycemia Other abnormal glucose Elevated blood pressure reading Elevated blood pressure reading without diagnosis of hypertension documented in this encounter Administered Medications Inactive Administered Medications - up to 3 most recent administrations Medication Order MAR Action Action Date Dose Rate Site HYDROcodone-acetaminophen (NORCO) 5-325 mg per tablet 1 tablet 1 tablet, oral, Once, On Mon02/03/23 at 1555, For 1 dose, Indications: PainIndications:Pain Given 02/03/2023 4:34 PM CDT 1 tablet ioversoL (OPTIRAY 350) syringe 100 mL 100 mL, intravenous, Once in imaging, contrast, Starting on Mon02/03/23 at 1656, For 1 dose Contrast Given 02/03/2023 4:56 PM CDT 100 mL documented in this encounter Active and Recently Administered Medications Times are shown in CDT. Scheduled Medication Order 02/01/2023 02/02/2023 02/03/2023 HYDROcodone-acetaminophen (NORCO) 5-325 mg per tablet 1 tablet (COMPLETED) 1 tablet, oral, Once, On Mon02/03/23 at 1555, For 1 dose, Indications: Pain 1634 (Given - Provid er: Jennifer Carbajal RN) PRN Medication Order 02/01/2023 02/02/2023 02/03/2023 ioversoL (OPTIRAY 350) syringe 100 mL (COMPLETED) 100 mL, intravenous, Once in imaging, contrast, Starting on Mon02/03/23 at 1656, For 1 dose 1656 (Contrast Given - Provider: Farzaneh Gaxiola RT) documented in this encounter Orders Nursing Count Last Ordered Date First Orde red Date MISCELLANEOUS NURSING CARE ORDER (SPECIFY) 1 02/03/2023 IV Count Last Ordered Date First Orde red Date SALINE LOCK IV 1 02/03/2023 documented in this encounter Care Teams Automatic Paint Sprayer Operator Relationship Specialty Start Date End Date Justen Gale MD [address] [address] PCP - General 10/09/17 Liu Jerez MD Consulting Physician Gastroenterology 07/28/17 [place] [address] [facility] [address] [place] [address] Consulting Physician Pulmonary Disease 08/03/17 Khris Arthur MD [address] [facility] [address] [place] [address] Medical Oncologist/Operating Room Coordinator Medical Oncology 10/23/17 [place] [address] [facility] [address] [place] [address] Surgeon Orthopedic Surgery 10/23/17 [place] [address] [facility] [address] [place] [address] Consulting Physician Pain Management 10/23/17 [place] [address] [facility] [address] [place] [address] Referring Physician General Surgery 01/26/18 [place] [address] [facility] [address] [place] [address] Consulting Physician Neurology 01/26/18 documented as of this encounter
--- OUTSIDE RECORDS SUMMARY | 2024-04-26 04:19 | XMS_ITS | Encounter Summary ---
Author Organization [facility] Address [address] [place] [address] Care Team Providers Care Bead Cutter Name Role Phone Liu Jerez MD Unavailable [phone] Albert Corbin MD Unavailable Justen Gale MD Primary Care Provider Khris Arthur MD Unavailable [phone] Ko Melendez MD Unavailable [phone] John Paul Moyer MD Unavailable Annel Rod MD Unavailable Anali MARSHALL MD, Carlos M. Unavailable [phone] Encounter Details Date Type Department Care Team (Latest Contact Info) Description 08/15/2023 10:41 AM CDT - 08/15/2023 11:59 PM CDT Hospital Encounter [facility] [address] [place] [phone] Discharge Disposition: Discharge to home or self care Social History Tobacco Use Types Packs/Day Years Used Date Smoking Tobacco: Former Smokeless Tobacco: Never Comments:remote tobacco use Alcohol Use Standard Drinks/Week Comments No 0 (1 standard drink = 0.6 oz pur e alcohol) [facility] Utilities Answer Date Recorded In the [...] How often do you attend chur or synagogue services? Patient unable to answer 08/15/2023 Do you belong to any clubs o r organizations such as muslim groups, unions, fraternal or athletic groups, or [...] in a nursing home (including now)? No 08/15/2023 Personal Safety Answer Date Recorded Have you ever been in or are you currently in a harmful physical or emotional relationship or is someone making you feel afraid or unsafe? 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 Gender Identity Not on file Sexual Orientation [...] a day 60 tablet 1 08/18/2023 4 amitriptyline (ELAVIL) 25 mg tablet Take 25 [...] on filedocumented in this encounter Care Teams Bead Cutter Relationship Specialty Start Date End Date Justen Gale MD [address] [address] PCP - General 10/09/17 Liu Jerez MD Consulting Physician Gastroenterology 07/28/17 [place] [address] [facility] [address] [place] [address] Consulting Physician Pulmonary Disease 08/03/17 Khris Arthur MD [address] [facility] [address] [place] [address] Medical Oncologist/Student Affairs Vice President Medical Oncology 10/23/17 [place] [address] [facility] [address] [place] [address] Surgeon Orthopedic Surgery 10/23/17 [place] [address] [address] Consulting Physician Pain Management 10/23/17 [place] [address] [facility] [address] [place] [address] Referring Physician General Surgery 01/26/18 [place] [address] [facility] [address] [place] [address] Consulting Physician Neurology 01/26/18 documented as of this encounter
--- OUTSIDE RECORDS SUMMARY | 2024-04-26 04:19 | XMS_ITS | Encounter Summary ---
Author Organization [facility] Address [address] [place] [address] Phone Care Team Providers Care Chairman President And Chief Executive Officer Name Role Phone Liu Jerez MD Unavailable Albert Corbin MD Unavailable [phone] Justen Gale MD Primary Care Provider Khris Arthur MD Unavailable [phone] Ko Melendez MD Unavailable [phone] John Paul Moyer MD Unavailable Annel Rod MD Unavailable Anali MARSHALL MD, Carlos M. Unavailable Encounter Details Date Type Department Care Team (Late st Contact Info) Description 08/08/2022 Orders Only [facility] Oncology [address] [facility] Medicine 7th [place] [address] [place] [address] Radha Mcgrath RN Social History [...] often do you attend chur ch or moravian services? Never 02/11/2022 Do you belong to any clubs o r organizations such as scientologist groups, unions, fraternal or athletic groups, or [...] slept in a usp (including now)? 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 Gender Identity Not on file Sexual Orientation Not on file documented as of this encounter Plan of Treatment Not on file documented as of this encounter Visit Diagnoses Not on filedocumented in this encounter Care Teams Chairman President And Chief Executive Officer Relationship Specialty Start Date End Date Justen Gale MD [address] [address] PCP - General 10/09/17 Liu Jerez MD Consulting Physician Gastroenterology 07/28/17 [place] [address] [facility] [address] [place] [address] Consulting Physician Pulmonary Disease 08/03/17 Khris Arthur MD [address] [facility] [address] [place] [address] Medical Oncologist/Supervisor Floor Assembly Medical Oncology 10/23/17 [place] [address] [facility] [address] [place] [address] Surgeon Orthopedic Surgery 10/23/17 [place] [address] [facility] [address] [place] [address] Consulting Physician Pain Management 10/23/17 [place] [address] [facility] [address] [place] [address] Referring Physician General Surgery 01/26/18 [place] [address] [facility] [address] [place] [address] Consulting Physician Neurology 01/26/18 documented as of this encounter
--- OUTSIDE RECORDS SUMMARY | 2024-04-26 04:19 | XMS_ITS | Encounter Summary ---
Author Organization [facility] Healthcare Address [address] [place] [address] Care Team Providers Care Final Assembler Name Role Phone Liu Jerez MD Unavailable Albert Corbin MD Unavailable Justen Gale MD Primary Care Provider Khris Arthur MD Unavailable [phone] Ko Melendez MD Unavailable John Paul Moyer MD Unavailable Annel Rod MD Unavailable Anali MARSHALL MD, Carlos M. Unavailable Reason for Visit * Reason Comments Shortness of Breath Encounter Details Date Type Department Care Team (Late st Contact Info) Description 05/11/2023 11:08 AM SHIP LOADER - 05/11/2023 12:40 PM [facility] Emergency [facility] [place] [address] Reina De La Paz MD [address] [place] [address] [address] [place] [address] Shortness of breath (Primary Dx) Discharge Disposition: Discharge to a critical access hospital Social History Tobacco Use Types Packs/Day Years [...] How often do you attend chur or yarsanism services? Never 02/11/2022 Do you belong to any clubs o r organizations such as christianity groups, unions, fraternal or athletic groups, or [...] place to sleep or slept in a snf (including now)? No 02/11/2022 Personal Safety Answer Date Recorded Have you ever been in or are you currently in a harmful physical or emotional relationship or is someone making you feel afraid or unsafe? Denies 05/11/2023 Comments No Sex and Gender Information Value Date Recorded Sex Assigned at Not on file Legal Sex Female 12:24 AM SHIP LOADER Gender Identity Not on file Sexual Orientation Not on file documented as of this encounter Last Filed Vital Signs Vital Sign Reading Time Taken Comments Blood Pressure 126/71 05/11/2023 12:34 PM SHIP LOADER Pulse 75 05/11/2023 12:34 PM SHIP LOADER Temperature 36.9 ??C (98.4 ??F) 05/11/2023 12:[address] Respiratory Rate 18 05/11/2023 12:34 PM SHIP LOADER Oxygen Saturation 95% 05/11/2023 12:34 PM SHIP LOADER Inhaled Oxygen Concentration - - Weight - [...] TIMES DAILY DIRECTED 06/24/2021 blood glucose diagnostic (KargoCarduch Ultra Test) strip 4 (four) times a [...] Departure Means Destination Comment s Discharge to a critical acce [facility] documented in this encounter ED Notes * Cordelia Whittington LCSW - 05/11/2023 11:27 AM CST Karly Marques May 11, 2023 [id number] 11:27 AM [address] Brief Encounter Karly Winston Marques, 67 y.o., , female Medical team requested consult by social work due to the need for assistance to the family with Adult [place] . [place] [id number] to assist and provide support. Pt was taken to the ED for medical assistance with Pt noting she took an antibiotic this morning and may be allergic since she has had reactions to other antibiotics in the past. Floor staff contacted Pt's son to inform. SW met with Pt in the ED,providing emotional support and provided reassurance that the granddaughter upstairs (two years old) will continue to have support from staff watching her. She voiced her comfort in this and is hopeful she will be able to get back to her granddaughter's bedside soon. No needs identified at this time. Actions: Chart review noting no SW history, Emotional support and Contact SW as needed Social Determinants of Health Addressed (with specifiers): No SDOH risks identified Cordelia Whittington LCSW LOADER * Rebeka Reed RN - 05/11/2023 11:12 AM CST Pt states she feels short of breath. States she just started takinig an antibiotic and is allergic to most antibiotics. VSS. BS 286, hx DM2. LOADER * Felicitas Bangura EMT-P - 05/11/2023 11:08 AM CST Bed: ED1-16 Expected date: 05/11/23 Expected time: Means of arrival: Comments: Adult cert 1100 Felicitas Bangura EMT-P 05/11/23 1108 LOADER * Reina De La Paz MD - 05/11/2023 11:07 AM CST HPI Chief Complaint Patient presents with Shortness of Breath 67-year-old with past medical history significant for type 2 diabetes, breast cancer, DVT, PE (currently on blood thinners), and multiple drug allergies now presenting with concerns for shortness of breath and overall ill feeling. Patient states that she was diagnosed with strep throat on 05/01 andwas started on amoxicillin. She was also told at this time that she would positive blood cultures. The cultures were repeated and negative. She was placed on a 14 day course of amoxicillin and is 1-2days away from completion of this course. She states that she has been overall in good health untiltoday when she woke up feeling shaky, lightheaded, and like she could not get a deep breath in. She states that these symptoms developed over about an hour after she took her home medications. She denies any chest pain, rashes facial or tongue swelling, headaches, numbness or tingling, or increasedleg swelling. She states that she does feel nauseous however has not had any vomiting or diarrhea. No fevers. She states that she has had amoxicillin before and has tolerated however that several years ago. 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 She has also had allergic reactions to other antibiotics which she describes as similarto her current presentation which were treated with Benadryl successfully in the past. She denies having similar symptoms with prior dose of amoxicillin. She states that her blood sugars typically run in the upper 100s however they have been higher since she was also placed on 5 days of prednisone for her strep infection. No other changes to her medications. She did miss her dose of anticoagulant yesterday however is typically pretty good about taking it. Symptoms today started while she was taking care of her granddaughter who was also hospitalized. Patient History: Patient Active Problem List Diagnosis Date Noted Bone disorder 08/02/2022 Cystitis 02/09/2022 Lab test positive for detection of COVID-19 virus 02/09/2022 Chest pain 09/12/2021 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) 08/01/2021 group home (current) use 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 inhibitors 10/17/2019 Thyroid nodule 08/07/2018 Dyslipidemia History of breast cancer Intractable pain CVA (cerebral vascular accident) ([facility]) 01/24/2018 Anxiety and depression 11/12/2017 Uncontrolled type 2 diabetes mellitus with hyperglycemia, with long-term current use of insulin ([facility]) 11/06/2017 Allergy to drug 11/06/2017 Dysuria 10/26/2017 Acute left-sided low back pain with left-sided sciatica 10/23/2017 Type 2 diabetes mellitus with neurologic complication, without long-term current use of insulin ([facility]) ([facility]) 10/23/2017 Hypertension 10/23/2017 Long-term current use of opiate analgesic 10/23/2017 Lumbosacral spondylosis without myelopathy 10/23/2017 Radiculopathy, lumbosacral region 10/23/2017 Spinal stenosis of lumbar region without neurogenic claudication 10/23/2017 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 Type 2 diabetes mellitus without complication ([facility]) ([facility]) Constipation Malignant neoplasm of upper-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 ([facility]) 10/17/2017 Cancer of overlapping sites of left female breast ([facility]) 10/13/2017 Chronic anticoagulation Restless leg syndrome Chest pressure 08/01/2017 Positive blood culture 08/01/2017 Hyponatremia 08/01/2017 Diet-controlled diabetes mellitus ([facility]) ([facility]) 08/01/2017 LUL (obstructive sleep apnea) 08/01/2017 History [...] (CMS/HCC) (HCC) breast CHF (congestive heart failure) ([facility]) (HCC) Depression Depression Diabetes (HCC) Disorder of thyroid Thyroid disease DVT (deep venous thrombosis) ([facility]) ([facility]) HX OTHER MEDICAL restless leg syndrome HX OTHER MEDICAL RLS Hypertension Hypertension Osteoarthritis osteoarthritis PE (pulmonary thromboembolism) ([facility]) ([facility]) Sleep apnea Past Surgical History: Procedure Laterality [...] comments: remote tobacco use Vaping Use Vaping Use: Never used Substance and Sexual Activity Alcohol use: No Drug use: None Sexual activity: Defer Social History Social History Narrative Not on file Review of Systems Review of Systems Constitutional: Negative for chills and fever. HENT: Negative for ear pain and sore throat. Eyes: Negative for pain and visual disturbance. Respiratory: Positive for shortness of breath. Negative for cough. Cardiovascular: Negative for chest pain and palpitations. Gastrointestinal: Positive for nausea. Negative for abdominal pain and vomiting. Genitourinary: Negative for decreased urine volume, dysuria and hematuria. Musculoskeletal: Negative for arthralgias and back pain. Skin: Negative for color change and rash. Neurological: Positive for light-headedness. Negative for dizziness, seizures, syncope, facial asymmetry, speech difficulty, numbness and headaches. All other systems reviewed and are negative. Physical Exam ED Triage Vitals Temp Pulse Resp BP SpO2 05/11/23 1109 05/11/23 1109 05/11/23 1109 05/11/23 1109 05/11/23 1109 36.9 ??C (98.4 ??F) 80 20 139/71 94 % Temp src Heart Rate Source Patient Position BP Location FiO2 (%) -- -- 05/11/23 1234 -- -- Lying Height Height Method Weight Weight Method -- -- -- -- Physical Exam Vitals and nursing note reviewed. Constitutional: General: She is not in acute distress. Appearance: Normal appearance. She is well-developed. She is obese. Comments: Pleasant woman in minimal distress. She appears somewhat anxious but speaks in full sentences. She is cooperative with exam and follows directions well. HENT: Head: Normocephalic and atraumatic. Right Ear: External ear normal. Left Ear: External ear normal. Nose: Nose normal. No congestion. Mouth/Throat: Mouth: Mucous membranes are moist. Pharynx: Oropharynx is clear. No oropharyngeal exudate or posterior oropharyngeal erythema. Comments: Tongue normal size, no difficulty swallowing, handling secretions normally. Eyes: Extraocular Movements: Extraocular movements intact. Conjunctiva/sclera: Conjunctivae normal. Pupils: Pupils are equal, round, and reactive to light. Cardiovascular: Rate and Rhythm: Normal rate and regular rhythm. Heart sounds: Murmur (2/6 systolic murmur) heard. Pulmonary: Effort: Pulmonary effort is normal. No respiratory distress. Breath sounds: Normal breath sounds. No wheezing, rhonchi or rales. Abdominal: General: There is no distension. Palpations: Abdomen is soft. Tenderness: There is no abdominal tenderness. There is no guarding or rebound. Musculoskeletal: Cervical back: Neck supple. No tenderness. Right lower leg: No edema. Left lower [...] normal. Psychiatric: Mood and Affect: Mood normal. MDM NIH Score Medical Decision Making 67-year-old with no significant past medical history now presenting with concerns for shaking, lightheadedness, and shortness of breath which started about an hour after she took home medications which included antibiotic. She denies any rashes, facial swelling, throat tightness, tongue enlargement, or vomiting. She also denies any chest pain, headaches, weakness. My exam is overall reassuring with normal vital signs, clear lungs to auscultation with no wheezing or rales, and no signs of angioedema or hives. Symptoms may be due to allergic reaction given she has had similar reactions prior, however she has had this medication multiple times over the past 2 weeks with no prior reaction. Blood glucose was somewhat elevated at 286 when she 1st arrived, however she is unaware of what her correction dose is. Differential at this time includes allergic reaction versus non IgE type drug reaction versus PE versus pneumonia versus hyperglycemia versus infection; low suspicion for sepsis at this point given normal vital signs however at risk for this given history of prior positive blood culture as well as current infection; less likely myocardial infarct given that she has not having any chest pain and her vital signs are very normal. Similarly I have low suspicion for stroke given that she has normal mental status, clear speech, and no weakness on exam. Will get an EKG, chest x- ray, place IV and obtain basic labs such as troponin, CBC, CMP to begin workup of current symptoms. A doseof Benadryl was also given at patient's request. Patient to be transferred to [facility] Department for continued workup and management for current symptoms. Patient amenable tothis plan. Amount and/or Complexity of Data Reviewed Labs: ordered. Radiology: ordered. ECG/medicine tests: ordered and independent interpretation performed. Risk OTC drugs. ED Course as of 05/11/231653 Time: 05/11 1140 Comment: Accepting physician at [facility] ED is Dr. Aj. By: Reina De La Paz MD Time: 05/11 1232 Comment: CXR neg for acute pathology. EKG reassuring with no ST changes or signs of right sided heart strain. Top pending. CBC with slightly elevated neutrophils, overall normal WBC. Pending transfer. By: Reina De La Paz MD Final diagnoses: Shortness of breath Reina De La Paz MD 05/11/231653 LOADER documented in this encounter Miscellaneous Notes * ED Procedure Note - Remi Mathew MD - 05/11/2023 12:19 PM SHIP LOADER Associated Order(s): ECG 12 lead Procedure ECG 12 lead Date/Time: 05/11/2023 12:19 PM Performed by: Remi Mathew MD Authorized by: Reina De La Paz MD Rate: ECG rate: 81 ECG rate assessment: normal Rhythm: Rhythm: sinus rhythm Ectopy: Ectopy: none QRS: QRS axis: Normal QRS intervals: Normal Conduction: Conduction: normal ST segments: ST segments: Normal T waves: T waves: flattening Flattening: V1 and V2 Previous ECG: Previous ECG: Compared to current Date of previous EC02/09/2023 Comparison ECG info: T wave flattening in septal leads appears new. Similarity: Changes noted Interpretation: Interpretation: non-specific Recommended Follow-up: Recommended follow up: cardiac workup and further workup in the ED Comments: T wave flattening may have been present on prior ECG but difficult to tell because of wavy baseline. No ST segment changes. No STEMI. Remi Mathew MD 05/11/23 1221 LOADER documented in this encounter Plan of Treatment Not on file documented as of this encounter Procedures Procedure Name Priority Date/Time Associated Diagnosis Comments ECG 12-LEAD STAT 05/11/2023 12:19 PM SHIP LOADER EGFR STAT 05/11/2023 12:10 PM SHIP LOADER DIFFERENTIAL AUTO STAT 05/11/2023 12: 10 PM SHIP LOADER CBC WITH AUTO DIFFERENTIAL STAT 05/11/2023 12:10 PM SHIP LOADER TROPONIN I Routine 05/11/2023 12:10 PM SHIP LOADER COMPREHENSIVE METABOLIC PANEL STAT 05/11/2023 12:10 PM SHIP LOADER XR CHEST 1 VIEW ED 05/11/2023 11:58 AM SHIP LOADER POCT GLUCOSE DEVICE Routine 05/11/2023 1 1:06 AM SHIP LOADER documented in this encounter Results * ECG 12-LEAD (05/11/2023 12:19 PM SHIP LOADER) Narrative [facility] - 05/11/2023 12:19 PM SHIP LOADER Remi Mathew MD ? 05/11/2023 12:21 PM ECG 12 lead Date/Time: 05/11/2023 12:19 PM Performed by: Remi Mathew MD Authorized by: Reina De La Paz MD ?? Rate: ??ECG rate: ??81 ??ECG rate assessment: normal ?? Rhythm: ??Rhythm: sinus rhythm ?? Ectopy: ??Ectopy: none ?? QRS: ??QRS axis: ??Normal ??QRS intervals: ??Normal Conduction: ??Conduction: normal ?? ST segments: ??ST segments: ??Normal T waves: ??T waves: flattening ?Flattening: ??V1 and V2 Previous ECG: ??Previous ECG: ??Compared to current ??Date of previous ECG: ??02/09/2023 ??Comparison ECG info: ??T wave flattening in septal leads appears new. ??Similarity: ??Changes noted Interpretation: ??Interpretation: non-specific ?? Recommended Follow-up: ??Recommended follow up: cardiac workup and further workup in the ED ?? Comments: ?? T wave flattening may have been present on prior ECG but difficult to tell because of wavy baseline. ??No ST segment changes. ??No STEMI. us Reina De La Paz MD ECG ORDERABLES Final Result [facility] * eGFR (05/11/2023 12:10 PM SHIP LOADER) [facility] eGFR >90 90 - 130 mL/min/1. 73 m2 [facility] Comment: Interpretive Data Reference Interval Normal ?>/= [...] Current interpretive data was last reviewed 2021. Blood 05/11/2023 12:1 0 PM SHIP LOADER 05/11/2023 12:16 PM SHIP LOADER us Reina De La Paz MD LAB BLOOD ORDERA BLES Final Result [facility] Department [place] [address] * (ABNORMAL) Differential, auto (05/11/2023 12:10 PM SHIP LOADER) Neutrophil abs 6.8(H) 1.5 - 6.5 K/cumm [facility] Imm gran abs 0.0 0.0 - 0.1 K/cumm [facility] Lymphocyte abs 1.8 0.8 - 3.3 K/cumm [facility] Monocyte abs 0.7 0.2 - 0.8 K/cumm [facility] Eosinophil abs 0.2 0.0 - 0.5 K/cumm [facility] Basophil abs 0.0 0.0 - 0.1 K/cumm [facility] Neutrophil pct 70.8 % [facility] Comment: Interpretive Data Percent cell count reference ranges are not reported, since discordance with absolute values may lead to misinterpretation of CBC data. Current Interpretive Data was last revised on 2017. Imm gran pct 0.4 % [facility] Comment: Interpretive Data Percent cell count reference ranges are not reported, since discordance with absolute values may lead to misinterpretation of CBC data. Current Interpretive Data was last revised on 2017. Lymphocyte pct 18.9 % [facility] Comment: Interpretive Data Percent cell count reference ranges are not reported, since discordance with absolute values may lead to misinterpretation of CBC data. Current Interpretive Data was last revised on 2017. Monocyte pct 7.2 % [facility] Comment: Interpretive Data Percent cell count reference ranges are not reported, since discordance with absolute values may lead to misinterpretation of CBC data. Current Interpretive Data was last revised on 2017. Eosinophil pct 2.4 % [facility] Comment: Interpretive Data Percent cell count reference ranges are not reported, since discordance with absolute values may lead to misinterpretation of CBC data. Current Interpretive Data was last revised on 2017. Basophil pct 0.3 % [facility] Comment: Interpretive Data Percent cell count reference ranges are not reported, since discordance with absolute values may lead to misinterpretation of CBC data. Current Interpretive Data was last revised on 2017. Blood 05/11/2023 12:1 0 PM SHIP LOADER 05/11/2023 12:16 PM SHIP LOADER Reina De La Paz MD LAB BLOOD ORDERA BLES Final Result [facility] Department [place] [address] * Troponin I (05/11/2023 12:10 PM SHIP LOADER) Troponin I <0.03 0.00 - 0.03 ng/mL [facility] Comment: Interpretive Data: Normal plasma Troponin I concentrations can reach 1 ng/mL in the first two weeks of life and slowly decrease to adult levels (<0.03 ng/mL) by the age of 3 months. > 3 months ??<0.03 ng/mL > or = 18 years Serial determinations are recommended for the diagnosis of myocardial infarction. ??Temporal rise and fall are consistent with myocardial infarction when at least one value is above the 99th percentile upper reference limit for Troponin assay. References: 1. Clin Chem 2013;59:3254-5596 2. Journal of the [place] [employer] 2012;60:1581-98 Current Interpretive Data Last Revised Date: 2017. Blood 05/11/2023 12:1 0 PM SHIP LOADER 05/11/2023 12:16 PM SHIP LOADER us Reina De La Paz MD LAB BLOOD ORDERA BLES Final Result [facility] Department [place] [address] * (ABNORMAL) Comprehensive metabolic panel (05/11/2023 12:10 PM SHIP LOADER) Sodium 136 135 - 145 mmol/L [facility] Potassium, pl 3.9 3.3 - 4.9 mmol/L [facility] Chloride 104 97 - 110 mmol/L [facility] CO2 24 22 - 32 mmol/L [facility] Anion gap 8 2 - 15 mmol/L [facility] BUN 13 6 - 25 mg/dL [facility] Creatinine 0.59(L) 0.60 - 1.10 mg/dL [facility] Glucose 244(H) 70 - 199 mg/dL [facility] Comment: Interpretive Data Fasting glucose >/= 126 [...] Current interpretive data was last revised 2022. Calcium 9.4 8.5 - 10.3 mg/dL [facility] Bilirubin, total 0.6 0.1 - 1.2 mg/dL [facility] Protein, pl 7.3 6.5 - 8.5 g/dL [facility] Albumin 3.6 3.5 - 5.0 g/dL [facility] Alk phos 80 40 - 130 Units/L [facility] ALT 16 7 - 45 Units/L [facility] AST 20 10 - 45 Units/L [facility] Comment:Hemolyzed; results m ay be falsely elevated. Blood 05/11/2023 12:1 0 PM SHIP LOADER 05/11/2023 12:16 PM SHIP LOADER Reina De La Paz MD LAB BLOOD ORDERA BLES Final Result Performing Organization Address [facility]/ZIP Co de Phone Number [facility] [place] [address] * CBC with auto differential (05/11/2023 12:10 PM SHIP LOADER) [facility] WBC 9.6 3.8 - 9.9 K/cumm [facility] Hgb 12.1 11.9 - 15.5 g/dL [facility] Hct 37.4 35.6 - 45.5 % [facility] Plt 259 150 - 400 K/cumm [facility] MPV 9.8 9.1 - 12.3 fL [facility] RBC 4.19 3.90 - 5.20 M/cumm [facility] MCV 89.3 81.3 - 96.4 fL [facility] MCH 28.9 27.1 - 33.3 pg [facility] MCHC 32.4 32.3 - 35.7 g/dL [facility] RDW CV 13.4 11.1 - 14.9 % [facility] RDW SD 43.3 35.7 - 48.1 fL [facility] NRBC abs 0.00 0.00 - 0.01 K/cumm [facility] Blood 05/11/2023 12:1 0 PM SHIP LOADER 05/11/2023 12:16 PM SHIP LOADER Reina De La Paz MD LAB BLOOD ORDERA BLES Final Result Performing Organization Address City/[facility]/ZIP Co de Phone Number [facility] [place] [address] * XR Chest 1 Vw Portable (05/11/2023 11:58 AM SHIP LOADER) Anatomical Region Laterality Modality Body, Chest N/A Computed Radiogr aphy 05/11/2023 12:0 1 PM SHIP LOADER Impressions 05/11/2023 12:01 PM SHIP LOADER FINDINGS/IMPRESSION: Mild bibasilar atelectasis. ??Lungs otherwise clear without focal consolidation, pneumothorax, or large pleural effusion. Cardiomediastinal silhouette normal and unchanged. Electronically signed by: Lila Mcnamara M.D. Narrative 05/11/2023 12:01 PM SHIP LOADER EXAMINATION: ??XR CHEST 1 VIEW HISTORY: ??Shortness of breath COMPARISON: Chest CT and radiograph 01/26/2023 TECHNIQUE: Frontal view radiograph of the chest Procedure Note Lila Mcnamara MD - 05/11/2023 EXAMINATION: XR CHEST 1 VIEW HISTORY: Shortness of breath COMPARISON: Chest CT and radiograph 01/26/2023 TECHNIQUE: Frontal view radiograph of the chest IMPRESSION: FINDINGS/IMPRESSION: Mild bibasilar atelectasis. Lungs otherwise clear without focal consolidation, pneumothorax, or large pleural effusion. Cardiomediastinal silhouette normal and unchanged. Electronically signed by: Lila Mcnamara M.D. Reina De La Paz MD IMG XR PROCEDURE S Final Result * (ABNORMAL) POCT glucose (05/11/2023 11:06 AM SHIP LOADER) [facility] Signature Glucose, POC 286(H) 70 - 199 mg/dL [facility] Blood 05/11/2023 11:0 6 AM SHIP LOADER 05/11/2023 11:06 AM SHIP LOADER Reina De La Paz MD LAB POCT ORDERAB LES - DEVICE Final Result [facility] [place] [address] documented in this encounter Visit Diagnoses Diagnosis Shortness of breath- Primary documented in this encounter Administered Medications Inactive Administered Medications - up to 3 most recent administrations Medication Order MAR Action Action Date Dose Rate Site diphenhydrAMINE (BENADRYL) capsule 50 mg 50 mg, oral, Once, On Valeri 05/11/23 at 1109, For 1 dose Given 05/11/2023 11:18 AM SHIP LOADER 50 mg documented in this encounter Active and Recently Administered Medications Times are shown in SHIP LOADER. Scheduled Medication Order 05/09/2023 05/10/2023 05/11/2023 diphenhydrAMINE (BENADRYL) capsule 50 mg (COMPLETED) 50 mg, oral, Once, On Valeri 05/11/23 at 1109, For 1 dose 1118 (Given - Provid er: Aruna Moscoso, EMT-P) lidocaine 1 % (BUFFERED LIDOCAINE) 0.1 mL 0.1 mL, subcutaneous, Once, On Valeri 05/11/23 at 1140, For 1 dose, Maximum daily dose 0.1 mL/kg, Administer immediately prior to procedure. 1203 (Not Given - Pr ovider: Rebeka Reed RN - Reason: Patient/family refused) documented in this encounter Orders Medications Ordered That Tyler ht Not Have Been Administered Count Last Ordered Date First Ordered Date diphenhydrAMINE (BENADRYL) capsule 50 mg 1 05/11/2023 lidocaine 1 % (BUFFERED LIDOCAINE) 0.1 mL 1 05/11/2023 IV Count Last Ordered Date First Orde red Date INSERT PERIPHERAL IV 1 05/11/2023 SALINE LOCK IV 1 05/11/2023 documented in this encounter Care Teams Final Assembler Relationship Specialty Start Date End Date Justen Gale MD 2 [facility] [address] [place] [address] PCP - General 10/09/17 Liu Jerez MD Consulting Physician Gastroenterology 07/28/[address] [place] [address] [facility] [address] [place] [address] Consulting Physician Pulmonary Disease 08/03/17 [place] [address] [place] [address] [place] [id number] Medical Oncologist/Creative Arts Therapist Medical Oncology 10/23/17 [place] [address] [facility] [address] [place] [address] Surgeon Orthopedic Surgery 10/23/17 [place] [address] [address] Consulting Physician Pain Management 10/23/17 [place] [address] [address] Referring Physician General Surgery 01/26/18 [place] [address] [facility] [address] [place] [address] Consulting Physician Neurology 01/26/18 documented as of this encounter
--- OUTSIDE RECORDS SUMMARY | 2024-04-26 04:19 | XMS_ITS | Encounter Summary ---
Author Organization [facility] Healthcare Address [address] [place] [address] Care Team Providers Care Records Management Technician Name Role Phone Liu Jerez MD Unavailable [phone] Albert Corbin MD Unavailable [phone] Justen Gale MD Primary Care Provider Khris Arthur MD Unavailable [phone] Ko Melendez MD Unavailable [phone] John Paul Moyer MD Unavailable Annel Rod MD Unavailable Anali MARSHALL MD, Carlos M. Unavailable Reason for Visit * Reason Comments Shortness of Breath Encounter Details Date Type Department Care Team (Late st Contact Info) Description 10/05/2022 8:57 PM CDT - 10/06/2022 1:15 AM CDT Emergency [facility] Emergency Department [address] [place] [id number] Yesenia Dunn DO [address] [place] [address] Shortness of breath (Primary Dx); Other fatigue Discharge Disposition: Discharge to home or self [...] How often do you attend chur or scientology services? 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 Gender Identity Not on file Sexual Orientation Not on file documented as of this encounter Last Filed Vital Signs Vital Sign Reading Time Taken Comments Blood Pressure 146/84 10/06/2022 12:30 AM CDT Pulse 96 10/06/2022 12:30 AM CDT Temperature 36.7 ??C (98.1 ??F) 10/05/2022 6:34 PM CD T Respiratory Rate 15 10/06/2022 12:3 0 AM CDT Oxygen Saturation 95% 10/06/2022 12: 30 AM CDT Inhaled Oxygen Concentration - - Weight 129.1 kg (284 lb 9.8 oz) 10/05/2022 6:34 PM CDT Height 154.9 cm (5' 1 ) 10/05/2022 6:3 4 PM CDT Body Mass Index 53.78 10/05/2022 6:34 PM CDT documented in this encounter Discharge Instructions * Discharge Instructions* Yesenia Dunn DO - 10/06/2022 12:24 AM CDT Please follow-up with your primary care physician in the next 2-3 days for further evaluation. Return immediately for any new symptoms, worsening of symptoms, or persistent symptoms. You MUST follow up for further evaluation of all incidental abnormal radiographic and laboratory findings, Have your physician obtain records from this visit and address all the incidental abnormal findings. This may include final results of lab testing, cultures, final x-ray reports which may not have been available during the time of the visit. * Attachments The following attachments cannot be sent through Care Everywhere. * Fatigue (AfterCare(R) Instructions(ER/ED)) (Monegasque) * Dyspnea (AfterCare(R) Instructions(ER/ED)) (Monegasque) * Viral Syndrome (AfterCare(R) Instructions(ER/ED)) (Monegasque) documented in this encounter Medications at Time of Discharge albuterol HFA (PROVENTIL HFA,VENTOLIN HFA,PROAIR HFA) 90 mcg/actuation inhaler Inhale 2 puffs every 6 (six) hours as needed for wheezing or shortness of breath 1 BD Ultra-Fine Short Pen Needle 31 gauge x 5/16 needle USE 6 TIMES DAILY DIRECTED 2 blood glucose diagnostic ([employer] Ultra Test) strip 4 (four) times a [...] every 6 (six) hours 2 10/31/19 24 hydrOXYzine (ATARAX) 10 mg tabletIndications:Pr uritus of Skin Take 1 tablet (10 mg total) by mouth 2 (two) times a day as needed for itching for up to 7 days 14 tablet 3 08/24/19 24 insulin glargine (LANTUS) 100 unit/mL injection [...] documented in this encounter ED Notes * Yesenia Dunn DO - 10/05/2022 9:34 PM CDT HPI Chief Complaint Patient presents with Shortness of Breath HPI Pt reports she hasn't felt good for the past 3-4 days. Has been SOB and vomiting today. Hx of HTN, CHF, & DM. Karly Marques is a 67 y.o. female presenting to the ED c/o not feeling well for the past 3-4 days. Sshe has been SOB and fatigue since yesterday. She feels like she cannot catch her breath. She has dificulty going frmmone roomto antoher with her SOB. Worse with moving or talking. Nothing makes it better. Tried an inhler at home and has not helped. No fever, chills, chest pain. New cough with phelgm. No N/v x 1 today, no blood. Worse with eating. No diarrhea. No dysuria. Had abdominal paiin earlier iin the week, but around belly button and has been gone for a couple of days. Has hx of PEs Patient History: Past Medical History: Diagnosis Date Adiposity obesity Breast CA (HCC) Cancer (CMS/HCC) (HCC) breast CHF (congestive heart failure) (CMS/HCC) ([facility]) Depression Depression Diabetes ([facility]) Disorder of thyroid Thyroid disease DVT (deep venous thrombosis) ([facility]) ([facility]) HX OTHER MEDICAL restless leg syndrome HX OTHER MEDICAL RLS Hypertension Hypertension Osteoarthritis osteoarthritis PE (pulmonary thromboembolism) ([facility]) ([facility]) Sleep apnea Past Surgical History: Procedure Laterality [...] mcg/actuation inhaler amitriptyline (ELAVIL) 25 mg tablet BD Ultra-Fine Short Pen Needle 31 gauge x 5/16 needle blood glucose diagnostic ([employer] Ultra Test) strip exemestane (AROMASIN) 25 mg tablet HumaLOG 100 unit/mL pen for injection hydroCHLOROthiazide (MICROZIDE) 12.5 mg capsule HYDROcodone-acetaminophen (NORCO) 7.5-325 mg per tablet hydrOXYzine (ATARAX) 10 mg tablet insulin glargine (LANTUS) 100 unit/mL injection insulin lispro (HumaLOG) 100 unit/mL injection lidocaine viscous (XYLOCAINE) 2 % solution meclizine (ANTIVERT) 25 mg tablet methenamine (HIPREX) 1 gram tablet mupirocin (BACTROBAN) 2 % ointment naloxone (NARCAN) 4 mg/actuation spray,non-aerosol nystatin powder ondansetron (ZOFRAN) 4 mg tablet ondansetron ODT (ZOFRAN-ODT) 4 mg disintegrating tablet oxybutynin (DITROPAN) 5 mg tablet oxybutynin XL (DITROPAN-XL) 10 mg [address] (PROTONIX) 40 mg EC tablet rivaroxaban (Xarelto) 20 mg tablet rOPINIRole (REQUIP) 5 mg tablet Review of Systems Review of Systems All systems reviewed and are neg or non contributory for this patients presentation today other than as stated in the HPI . Physical Exam ED Triage Vitals [10/05/221833] Temp Pulse Resp BP SpO2 36.7 ??C (98.1 ??F) 97 22 149/88 97 % Temp src Heart Rate Source Patient Position BP Location FiO2 (%) Oral -- -- -- -- Height Height Method Weight Weight Method 1.549 m (5' 1 ) Stated 129.1 kg (284 lb 9.8 oz) Standing scale Patient Vitals for the past 24 hrs: BP Temp Temp src Pulse Resp SpO2 Height Weight 10/06/22 0030 146/84 -- -- 96 15 95 % -- -- 10/06/22 0015 128/77 -- -- 94 18 94 % -- -- 10/05/22 2325 151/86 -- -- 86 19 97 % -- -- 10/05/226 -- -- -- -- -- 94 % -- -- 10/05/22 2120 147/79 -- -- 99 18 97 % -- -- 10/05/22 1834 149/88 36.7 ??C (98.1 ??F) Oral 97 22 97 % 154.9 cm (5' 1 ) 129.1 kg (284 lb 9.8 oz) Physical Exam Vitals and nursing note reviewed. GENERAL: Patient is conscious alert and oriented x3 and in no acute distress. HEENT: Head is normocephalic and atraumatic. Extraocular muscles are intact. NECK: Trachea is midline. No meningeal signs. LUNGS: Lungs are clear to auscultation bilaterally. There is good respiratory effort. HEART: regular rate and rhythm, no murmur. There is no gallop or rub. No pitting edema. ABDOMEN: obese, Soft and nontender to palpation. Bowel sounds are normal in all quadrants. There isno guarding or rebound. There are no masses. No CVA tenderness. MUSCULOSKELETAL: Moves all extremities x4. There is no obvious deformity. Radial pulses are intact.No spinal process tenderness. SKIN: Exposed skin shows no obvious erythema. Skin is warm and dry. There is no rash. NEUROLOGIC: Patient is conscious, alert and oriented x3. No focal neurologic defect is noted. PSYCH: Normal affect. Procedures MDM Labs Reviewed URINALYSIS AND REFLEX TO MICROSCOPIC AND CULTURE - Abnormal Result Value Color, ur Yellow Clarity, ur Clear Specific gravity, ur 1.020 pH, urine 5.0 Protein, ur ql Negative Glucose, ur ql Negative Ketones, ur Negative Bilirubin, ur Negative Blood, ur 1+ (*) Urobilinogen, ur <2.0 Nitrite, ur Negative Leukocyte esterase, ur 1+ (*) UA reflex comment Reflex to microscopic UA will be performed. Narrative: Urine pH is affected by diet, medications, systemic acid-base disturbances, and renal tubular function. pH may affect urinary stone formation. For example, urine pH below 6.0 may help reduce the tendency for calcium phosphate stones and pH greater than 6.0 may reduce the tendency for uric acid stone formation. Source: [facility] [employer].Last revised 05-04-2017 CBC WITH AUTO DIFFERENTIAL - Abnormal WBC 10.5 (*) Hgb 13.6 Hct 42.7 Plt 301 MPV 9.7 RBC 4.77 MCV 89.5 MCH 28.5 MCHC 31.9 (*) RDW CV 13.8 RDW SD 45.5 NRBC abs 0.00 TROPONIN T HIGH-SENSITIVITY SERIES (BASELINE, 2HR, 4HR, 6HR) - Abnormal Trop T hs 23 (*) TROPONIN T HIGH-SENSITIVITY 2-HOUR - Abnormal Trop T hs 20 (*) Trop T hs delta -3 Trop T hs interp Insignificant TROPONIN T HIGH-SENSITIVITY 4-HR - Abnormal Trop T hs 19 (*) Trop T hs delta -4 Trop T hs interp Insignificant URINALYSIS, MICROSCOPIC ONLY - Abnormal WBC, ur 0-5 RBC, ur 0-2 Epithelial cells, squamous, ur 6-10 (*) Mucous, ur Present (*) Culture Reflex Comment Value: Reflex conditions for urine culture (WBC >10) not met. INFLUENZA A/B, RSV, AND COVID-19 PCR COVID-19 RNA Negative Influenza A RNA Negative Influenza B RNA Negative RSV RNA Negative Narrative: Is the Patient experiencing symptoms consistent with COVID?->Yes Date of Symptom Onset->10/05/22 Reason for testing?->Symptomatic COMPREHENSIVE METABOLIC PANEL Sodium 136 Potassium, pl 3.9 Chloride 98 CO2 25 Anion gap 13 BUN 15 Creatinine 0.70 Glucose 186 Calcium 10.1 Bilirubin, total 0.4 Protein, pl 8.5 Albumin 4.0 Alk phos 89 ALT 21 AST 21 PRO B-TYPE NATRIURETIC PEPTIDE NT-proBNP 49 DIFFERENTIAL AUTO Neutrophil abs 6.4 Imm gran abs 0.0 Lymphocyte abs 2.9 Monocyte abs 0.7 Eosinophil abs 0.3 Basophil abs 0.0 Neutrophil pct 61.2 Imm gran pct 0.4 Lymphocyte pct 27.9 Monocyte pct 7.0 Eosinophil pct 3.1 Basophil pct 0.[address] Chest PE (CTA) Abdomen Pelvis W Contrast EXAM DESCRIPTION: CT CHEST PE (CTA) ABDOMEN PELVIS W CONTRAST REASON FOR STUDY: SOB and n/v Pt reports she hasn't felt good for the past 3-4 days. Has been SOB and vomiting today. Hx of HTN, CHF, . Contrast was stopped due to leaking from IV site. Exam was stopped and restarted TECHNIQUE: CT angiogram of the chest with routine abdomen and pelvis performed with intravenous and without oral contrast using helical scanning technique with dynamic intravenous contrast injection. Reconstructed coronal and sagittal MPR images reviewed. All images stored on PACS. 3D MIP images of the chest rendered on scanning unit and reviewed at time of interpretation. Automated exposure control was used as a dose optimization technique for this examination. CONTRAST TYPE/DOSE: 100 mL of IOVERSOL 350 MG IODINE/ML INTRAVENOUS SYRINGE injected via intravenous . Unspecified amount of contrast volume was loss due to leaking at the IV site. COMPARISON: Comparison is made to multiple previous studies, the most recent CT of the chest dated June 21, [address] of the abdomen and pelvis dated April 04, 2022. REFERENCE: Per ACR white paper recommendations, unless otherwise specified no follow-up imaging is recommended for incidental renal and adrenal lesions per consensus recommendations based on imaging criteria. Further lab evaluation could be pursued based on clinical findings. FINDINGS: CHEST NECK BASE: There are multiple coarse calcifications seen within the thyroid unchanged dating back to at least 2017. HARDWARE/LINES/TUBES: None. LYMPH NODES: No axillary, mediastinal or hilar lymphadenopathy is seen by CT size criteria on this non-contrast CT. There is a stable anterior mediastinal node measuring up to 8 mm in short axis. MEDIASTINUM/SHALA: No masses seen. There is mild atherosclerosis of the aorta. There is no significant coronary artery calcification. The contrast bolus is suboptimal. Only the most central pulmonary vasculature is well evaluated secondary to the contrast bolus. The pulmonary arteries are well evaluated to the lobar level. There are no filling defects seen in the pulmonary arteries on the axial or coronal images to suggest central pulmonary embolism. There is no evidence of left intraventricular septal bowing. There is no significant reflux of contrast into the IVC. Heart size is normal. There is no significant pericardial effusion. PLEURA: No effusion. No pneumothorax. LUNGS: There is mild subpleural parenchymal scarring seen throughout the left lung and to a lesser degree in the right lung base. There is mild bibasilar atelectasis. There is no significant change from previous study. CHEST WALL/BREAST: The patient is status post bilateral mastectomy. MUSCULOSKELETAL: There is diffuse degenerative change of the thoracic spine. There is no acute abnormality. Spinal stimulator leads are seen within the thoracic spinal canal with the superior tip centered at the T7 level. OTHER: No other significant abnormality. ABDOMEN AND PELVIS LIVER: The liver is normal in attenuation without focal lesion. GALLBLADDER: Surgically absent. BILE DUCTS: No intrahepatic or extrahepatic ductal dilatation. PANCREAS: Normal. SPLEEN: Normal size. No focal lesions. ADRENALS: Normal. KIDNEYS/URINARY TRACT: A 1.9 cm low-density cyst is seen in the right kidney. Kidneys are otherwise unremarkable without evidence of hydronephrosis. Urinary bladder is unremarkable. VASCULATURE: There is mild atherosclerosis of the pelvic vasculature. GI: The stomach appears normal. There is no significant small bowel dilation or visible thickening. There are scattered diverticula of the transverse, descending and sigmoid colon. The appendix is normal. PERITONEUM/MESENTERY: No ascites or free air. There are sequelae of ventral herniorrhaphy extending from above the umbilicus to nearly the pubic symphysis. There is no evidence of hernia recurrence. LYMPH NODES: There are no enlarged lymph nodes seen by CT size criteria. REPRODUCTIVE: Uterus and adnexae are unremarkable. MUSCULOSKELETAL: Multilevel degenerative changes are present in the spine. No acute bony abnormalities are seen. OTHER: No other abnormality. IMPRESSION: No evidence of central pulmonary embolism. Evaluation is limited due to suboptimal contrast bolus. No acute abnormality identified within the chest, abdomen or pelvis. Chronic findings as above. THIS IS AN ELECTRONICALLY VERIFIED FINAL REPORT 10/05/2022 11:56 PM - Electronically signed by Ilana Chen M.D. SN: SN Report ID: [id number] Reading Location: [id number] XR Chest Pa Lateral 2 Vw EXAM DESCRIPTION: XR CHEST PA LATERAL 2 VIEWS REASON FOR STUDY: dyspnea Pt reports she hasn't felt good for the past 3-4 days. Has been SOB and vomiting today. Hx of HTN, CHF, . COMPARISON: 06/21/2022 FINDINGS: Frontal and lateral views of the chest submitted for review. Spinal cord stimulator leads seen over the mid chest. No focal consolidation. No pneumothorax or pleural effusion. The cardiomediastinal contours are normal. IMPRESSION: --IMPRESSION-- No acute cardiopulmonary abnormality. THIS IS AN ELECTRONICALLY VERIFIED FINAL REPORT 10/05/2022 7:40 PM - Electronically signed by Mike Acosta M.D. WW: TEO Report ID: [id number] Reading Location: [id number] BP 146/84 Pulse 96 Temp 36.7 ??C (98.1 ??F) (Oral) Resp 15 Ht 154.9 cm (5' 1 ) Wt 129.1 kg (284 lb 9.8 oz) SpO2 95% BMI 53.78 kg/m?? Medical Decision Making Clinical problems/dx: Karly Marques is a 67 y.o. female who presents with not feeling well, SOB, fatigue. ED Course -Patient seen and evaluated, available studies reviewed -Prior available records reviewed, triage notes reviewed. -Discussed results with patient. Pending CTA chest due to her hx of PEs. She is on anticoagulant though. This examination was transcribed using the TrackR voice recognition system without human hospital cna. In an effort to expedite patient care, this report has not been adjusted for typographical, grammatical, and syntax by a trained biomedical engineering technologist. Clinical Impression: Shortness of breath Other fatigue Yesenia Dunn DO 10/06/22 0629 * Kathryn Santana RN - 10/05/2022 6:31 PM CDT Pt reports she hasn't felt good for the past 3-4 days. Has been SOB and vomiting today. Hx of HTN, CHF, & DM. documented in this encounter Plan of Treatment Not on file documented as of this encounter Procedures Procedure Name Priority Date/Time Associated Diagnosis Comments TROPONIN T HIGH-SENSITIVITY 4-HR Timed 10/05/2022 10:[address] CHEST PE ABDOMEN PELVIS W CONTRAST ED 10/05/2022 10:15 PM CDT URINALYSIS AND REFLEX TO MICROSCOPIC AND CULTURE STAT 10/05/2022 9:16 PM CDT URINALYSIS, MICROSCOPIC ONLY STAT 10/05/2022 9:16 PM CDT TROPONIN T HIGH-SENSITIVITY 2-HOUR Timed 10/05/2022 8:09 PM CDT XR CHEST PA LATERAL 2 VIEWS ED 10/05/2022 6:55 PM CDT ECG 12-LEAD STAT 10/05/2022 6:38 PM CDT TROPONIN T HIGH-SENSITIVITY SERIES (BASELINE, 2HR, 4HR, 6HR) STAT 10/05/2022 6:36 PM CDT INFLUENZA A/B, RSV, AND COVID-19 PCR Routine 10/05/2022 6:36 PM CDT EGFR STAT 10/05/2022 6:36 PM CDT DIFFERENTIAL AUTO STAT 10/05/2022 6:3 6 PM CDT PRO B-TYPE NATRIURETIC PEPTIDE STAT 10/05/2022 6:36 PM CDT CBC WITH AUTO DIFFERENTIAL STAT 10/05/2022 6:36 PM CDT COMPREHENSIVE METABOLIC PANEL STAT 10/05/2022 6:36 PM CDT documented in this encounter Results * (ABNORMAL) Troponin T high-sensitivity 4-hour (10/05/2022 10:25 PM CDT) Trop T hs 19(H) <=14 ng/L MARY JANE PHAM Comment: Ref Range High Interpretive Data For further hscTnT resources including the diagnostic algorithm and an aid in interpretation, copy and paste this link: https://[email or web address].testcatalog.org/show/hsTrop Current Interpretive Data last revised 2020. Testing performed by: [address] [address] Trop T hs delta -4 ng/L MARY JANE Comment:Testing performed by : [address] [address] Trop T hs interp Insignificant MARY JANE Comment:Testing performed by : [address] [address] Blood 10/05/2022 10:2 5 PM CDT 10/05/2022 10:27 PM CDT [facility] LAB BLOOD ORDERABLES Final R esult MARY JANE PHAM [id number] [facility] Department [place] [address] * CT Chest PE (CTA) Abdomen Pelvis W Contrast (10/05/2022 10:15 PM CDT) Anatomical Region Laterality Modality Body N/A Computed Tomogra phy 10/05/2022 11:3 6 PM CDT Narrative 10/05/2022 11:56 PM CDT EXAM DESCRIPTION: ?? CT CHEST PE (CTA) ABDOMEN PELVIS W CONTRAST REASON FOR STUDY: ?? SOB and n/v ?? Pt reports she hasn't felt good for the past 3-4 days. Has been SOB and vomiting today. Hx of HTN, CHF, . ??Contrast was stopped due to leaking from IV site. Exam was stopped and restarted ? TECHNIQUE: CT angiogram of the chest with routine abdomen and pelvis performed with intravenous and ??without ??oral contrast using helical scanning technique with dynamic intravenous contrast injection. Reconstructed coronal and sagittal MPR images reviewed. All images stored on PACS. ??3D MIP images of the chest rendered on scanning unit and reviewed at time of interpretation. ?? Automated exposure control was used as a dose optimization technique for this examination. CONTRAST TYPE/DOSE: 100 mL of IOVERSOL 350 MG IODINE/ML INTRAVENOUS SYRINGE ?? injected via ?? intravenous . ??Unspecified amount of contrast volume was loss due to leaking at the IV site. COMPARISON: ?? Comparison is made to multiple previous studies, the most recent CT of the chest dated June 21, [address] of the abdomen and pelvis dated April 04, 2022. REFERENCE: Per ACR white paper recommendations, unless otherwise specified no follow-up imaging is recommended for incidental renal and adrenal lesions per consensus recommendations based on imaging criteria. Further lab evaluation could be pursued based on clinical findings. FINDINGS: CHEST NECK BASE: ??There are multiple coarse calcifications seen within the thyroid unchanged dating back to at least 2018. HARDWARE/LINES/TUBES: ?? None. LYMPH NODES: ??No axillary, mediastinal or hilar lymphadenopathy is seen by CT size criteria on this non-contrast CT. ?? There is a stable anterior mediastinal node measuring up to 8 mm in short axis. MEDIASTINUM/SHALA: ??No masses seen. ?? There is mild atherosclerosis of the aorta. ?? There is no significant coronary artery calcification. ??The contrast bolus is ??suboptimal. ?Only the most central pulmonary vasculature is well evaluated secondary to the contrast bolus. ?? The pulmonary arteries are well evaluated to the ??lobar ??level. ??There are no filling defects seen in the pulmonary arteries on the axial or coronal images to suggest central pulmonary embolism. ?There is no evidence of left intraventricular septal bowing. ?? There is ??no significant ??reflux of contrast into the IVC. ?? Heart size is normal. ?? There is no significant pericardial effusion. ? PLEURA: ??No effusion. No pneumothorax. LUNGS: ??There is mild subpleural parenchymal scarring seen throughout the left lung and to a lesser degree in the right lung base. ??There is mild bibasilar atelectasis. ??There is no significant change from previous study. CHEST WALL/BREAST: ??The patient is status post bilateral mastectomy. MUSCULOSKELETAL: ??There is diffuse degenerative change of the thoracic spine. ?? There is no acute abnormality. ?? Spinal stimulator leads are seen within the thoracic spinal canal with the superior tip centered at the T7 level. OTHER: ??No other significant abnormality. ?? ABDOMEN AND PELVIS LIVER: ??The liver is normal in attenuation without focal lesion. GALLBLADDER: ??Surgically absent. BILE DUCTS: ??No intrahepatic or extrahepatic ductal dilatation. PANCREAS: ??Normal. SPLEEN: ??Normal size. ??No focal lesions. ADRENALS: ??Normal. KIDNEYS/URINARY TRACT: ??A 1.9 cm low-density cyst is seen in the right kidney. Kidneys are otherwise unremarkable without evidence of hydronephrosis. ? Urinary bladder is unremarkable. VASCULATURE: ??There is mild atherosclerosis of the pelvic vasculature. GI: ??The stomach appears normal. ?? There is no significant small bowel dilation or visible thickening. ?? There are scattered diverticula of the transverse, descending and sigmoid colon. ?The appendix is normal. PERITONEUM/MESENTERY: ??No ascites or free air. ?? There are sequelae of ventral herniorrhaphy extending from above the umbilicus to nearly the pubic symphysis. ??There is no evidence of hernia recurrence. LYMPH NODES: ??There are no enlarged lymph nodes seen by CT size criteria. REPRODUCTIVE: ??Uterus and adnexae are unremarkable. MUSCULOSKELETAL: ??Multilevel degenerative changes are present in the spine. No acute bony abnormalities are seen. OTHER: ??No other abnormality. IMPRESSION: No evidence of central pulmonary embolism. Evaluation is limited due to suboptimal contrast bolus. No acute abnormality identified within the chest, abdomen or pelvis. Chronic findings as above. THIS IS AN ELECTRONICALLY VERIFIED FINAL REPORT 10/05/2022 11:56 PM - Electronically signed by ??Ilana Chen M.D. SN: D: ??10/05/2022 11:56 PM T: ??10/05/2022 11:56 PM Report ID: [id number] Reading Location: ??[id number] Procedure Note Ilana Chen MD - 10/05/2022 EXAM DESCRIPTION: CT CHEST PE (CTA) ABDOMEN PELVIS W CONTRAST REASON FOR STUDY: SOB and n/v Pt reports she hasn't felt good for the past 3-4 days. Has been SOB and vomiting today. Hx of HTN, CHF, . Contrast was stopped due to leakingfrom IV site. Exam was stopped and restarted TECHNIQUE: CT angiogram of the chest with routine abdomen and pelvisperformed with intravenous and without oral contrast using helical scanningtechnique with dynamic intravenous contrast injection. Reconstructed coronal and sagittal MPR images reviewed. All images stored on PACS. 3D MIP images ofthe chest rendered on scanning unit and reviewed at time of interpretation. Automated exposure control was used as a dose optimization technique forthis examination. CONTRAST TYPE/DOSE: 100 mL of IOVERSOL 350 MG IODINE/ML INTRAVENOUSSYRINGE injected via intravenous . Unspecified amount of contrast volume wasloss due to leaking at the IV site. COMPARISON: Comparison is made to multiple previous studies, the mostrecent CT of the chest dated June 21, [address] of the abdomenand pelvis dated April 04, 2022. REFERENCE: Per ACR white paper recommendations, unless otherwise specifiedno follow-up imaging is recommended for incidental renal and adrenal lesionsper consensus recommendations based on imaging criteria. Further labevaluation could be pursued based on clinical findings. FINDINGS: CHEST NECK BASE: There are multiple coarse calcifications seen within thethyroid unchanged dating back to at least 2018. HARDWARE/LINES/TUBES: None. LYMPH NODES: No axillary, mediastinal or hilar lymphadenopathy is seen byCT size criteria on this non-contrast CT. There is a stable anterior mediastinal node measuring up to 8 mm in short axis. MEDIASTINUM/SHALA: No masses seen. There is mild atherosclerosis of the aorta. There is no significant coronary artery calcification. Thecontrast bolus is suboptimal. Only the most central pulmonary vasculature iswell evaluated secondary to the contrast bolus. The pulmonary arteries arewell evaluated to the lobar level. There are no filling defects seen in the pulmonary arteries on the axial or coronal images to suggest centralpulmonary embolism. There is no evidence of left intraventricular septal bowing. There is no significant reflux of contrast into the IVC. Heart size is normal. There is no significant pericardial effusion. PLEURA: No effusion. No pneumothorax. LUNGS: There is mild subpleural parenchymal scarring seen throughout theleft lung and to a lesser degree in the right lung base. There is mildbibasilar atelectasis. There is no significant change from previous study. CHEST WALL/BREAST: The patient is status post bilateral mastectomy. MUSCULOSKELETAL: There is diffuse degenerative change of the thoracicspine. There is no acute abnormality. Spinal stimulator leads are seen withinthe thoracic spinal canal with the superior tip centered at the T7 level. OTHER: No other significant abnormality. ABDOMEN AND PELVIS LIVER: The liver is normal in attenuation without focal lesion. GALLBLADDER: Surgically absent. BILE DUCTS: No intrahepatic or extrahepatic ductal dilatation. PANCREAS: Normal. SPLEEN: Normal size. No focal lesions. ADRENALS: Normal. KIDNEYS/URINARY TRACT: A 1.9 cm low-density cyst is seen in the rightkidney. Kidneys are otherwise unremarkable without evidence of hydronephrosis. Urinary bladder is unremarkable. VASCULATURE: There is mild atherosclerosis of the pelvic vasculature. GI: The stomach appears normal. There is no significant small bowel dilation or visible thickening. There are scattered diverticula of the transverse, descending and sigmoid colon. The appendix is normal. PERITONEUM/MESENTERY: No ascites or free air. There are sequelae ofventral herniorrhaphy extending from above the umbilicus to nearly the pubic symphysis. There is no evidence of hernia recurrence. LYMPH NODES: There are no enlarged lymph nodes seen by CT size criteria. REPRODUCTIVE: Uterus and adnexae are unremarkable. MUSCULOSKELETAL: Multilevel degenerative changes are present in thespine. No acute bony abnormalities are seen. OTHER: No other abnormality. IMPRESSION: No evidence of central pulmonary embolism. Evaluation is limited due to suboptimal contrast bolus. No acute abnormality identified within the chest, abdomen or pelvis. Chronic findings as above. THIS IS AN ELECTRONICALLY VERIFIED FINAL REPORT 10/05/2022 11:56 PM - Electronically signed by Ilana Chen M.D. SN: Report ID: [id number] Reading Location: [place] [address] Yesenia Dunn DO IMG CT PROCEDURES Final Result * (ABNORMAL) Urinalysis, microscopic only (10/05/2022 9:16 PM CDT) WBC, ur 0-5 0 - 5 /HPF MARY JANE Comment:Testing performed by : [address] [address] RBC, ur 0-2 0 - 2 /HPF MARY JANE Comment:Testing performed by : [address] [address] Epithelial cells, squamous, ur 6-10(A) 0 - 5 /HPF MARY JANE Comment:Testing performed by : [address] [address] Mucous, ur Present(A) MARY JANE Comment:Testing performed by : [address] [address] Culture Reflex Comment Reflex conditions for urine culture (WBC >10) not met. MARY JANE Comment:Testing performed by : [address] [address] Urine 10/05/2022 9:16 PM CDT 10/05/2022 9:18 PM CDT [facility] URINE ORDERABLES Final R esult MARY JANE [address] [facility] [place] [address] * (ABNORMAL) Urinalysis reflex to microscopic and culture Urine (10/05/2022 9:16 PM CDT) Color, ur Yellow Yellow MARY JANE Comment:Testing performed by : [facility], [address] [place] [address], [place]., [address] Clarity, ur Clear Clear MARY JANE Comment:Testing performed by : [address], [place]., [address] Specific gravity, ur 1.020 1.003 - 1.030 MARY JANE Comment:Testing performed by : [address], [place]., [address] pH, urine 5.0 MARY JANE Comment:Testing performed by : [address], [place]., [address] Protein, ur ql Negative Negative MARY JANE Comment:Testing performed by : [address], [place]., [address] Glucose, ur ql Negative Negative MARY JANE Comment:Testing performed by : [address], [place]., [address] Ketones, ur Negative Negative MARY JANE Comment:Testing performed by : [address], [place]., [address] Bilirubin, ur Negative Negative MARY JANE Comment:Testing performed by : [address], [place]., [address] Blood, ur 1+(A) Negative MARY JANE Comment:Testing performed by : [address] [address] Urobilinogen, ur <2.0 <2.0 mg/dL MARY JANE Comment:Testing performed by : [address] [address] Nitrite, ur Negative Negative MARY JANE Comment:Testing performed by : [address] [address] Leukocyte esterase, ur 1+(A) Negative MARY JANE Comment:Testing performed by : [address], [place]., [address] UA reflex comment Reflex to microscopic UA will be performed. MARY JANE Comment:Testing performed by : [address] [address] Urine 10/05/2022 9:16 PM CDT 10/05/2022 9:18 PM CDT Narrative MARY JANE - 10/05/2022 9:22 PM CDT ?? Urine pH is affected by diet, medications, systemic acid-base disturbances, and renal tubular function. ??pH may affect urinary stone formation. ??For example, urine pH below 6.0 may help reduce the tendency for calcium phosphate stones and pH greater than 6.0 may reduce the tendency for uric acid stone formation. Source: [facility] [employer]. Last revised 05-04-2017 [facility] MICROBIOLOGY - GENERAL O RDERABLES Final Result Performing Organization Address [facility] Co de Phone Number MARY JANE [address] [facility] [employer] [place] [address] * (ABNORMAL) Troponin T high-sensitivity 2-hour (10/05/2022 8:09 PM CDT) Trop T hs 20(H) <=14 ng/L MARY JANE Comment: Ref Range High Interpretive Data For further hscTnT resources including the diagnostic algorithm and an aid in interpretation, copy and paste this link: https://nrl.testcatalog.org/show/hsTrop Current Interpretive Data last revised 2020. Testing performed by: [address] [address] Trop T hs delta -3 ng/L MARY JANE Comment:Testing performed by : [address] [address] Trop T hs interp Insignificant MARY JANE Comment:Testing performed by : [address] [address] Blood 10/05/2022 8:09 PM CDT 10/05/2022 8:14 PM CDT [facility] BLOOD ORDERABLES Final R esult Performing Organization Address City/[facility] Co de Phone Number [facility] [address] [facility] Department [place] [address] * XR Chest Pa Lateral 2 Vw (10/05/2022 6:55 PM CDT) Anatomical Region Laterality Modality Body, Chest N/A Computed Radiogr aphy 10/05/2022 7:38 PM CDT Narrative 10/05/2022 7:40 PM CDT EXAM DESCRIPTION: ?? XR CHEST PA LATERAL 2 VIEWS REASON FOR STUDY: dyspnea ?? Pt reports she hasn't felt good for the past 3-4 days. Has been SOB and vomiting today. Hx of HTN, CHF, . ?? COMPARISON: 06/21/2022 FINDINGS: Frontal and lateral ??views of the chest submitted for review. Spinal cord stimulator leads seen over the mid chest. ??No focal consolidation. No pneumothorax or pleural effusion. ??The cardiomediastinal contours are normal. IMPRESSION: --IMPRESSION-- No acute cardiopulmonary abnormality. ?? THIS IS AN ELECTRONICALLY VERIFIED FINAL REPORT 10/05/2022 7:40 PM - Electronically signed by ??Mike Acosta M.D. WW: TEO D: ??10/05/2022 7:40 PM T: ??10/05/2022 7:40 PM Report ID: [id number] Reading Location: ??[id number] Procedure Note Mike Acosta MD PhD - 10/05/2022 EXAM DESCRIPTION: XR CHEST PA LATERAL 2 VIEWS REASON FOR STUDY: dyspnea Pt reports she hasn't felt good for the past 3-4 days. Has been SOB and vomiting today. Hx of HTN, CHF, . COMPARISON: 06/21/2022 FINDINGS: Frontal and lateral views of the chest submitted for review. Spinal cord stimulator leads seen over the mid chest. No focalconsolidation. No pneumothorax or pleural effusion. The cardiomediastinal contours are normal. IMPRESSION: --IMPRESSION-- No acute cardiopulmonary abnormality. THIS IS AN ELECTRONICALLY VERIFIED FINAL REPORT 10/05/2022 7:40 PM - Electronically signed by Mike Acosta M.D. WW: TEO Report ID: [id number] Reading Location: [id number] us [facility] XR PROCEDURES Final Resu lt * ECG 12 lead (10/05/2022 6:38 PM CDT) Pathologist [facility] Ventricular Rate EKG/Min 94 BPM [facility] Atrial Rate 94 BPM [facility] TX-Interval (MSEC) 124 ms [facility] QRS-Interval (MSEC) 86 ms [facility] QT-Interval (MSEC) 370 ms [facility] QTc 462 ms [facility] P [place] 23 degrees [facility] R [place] -7 degrees [facility] T [place] 25 degrees [facility] Diagnosis Normal sinus rhythm Possible Left atrial enlargement Borderline ECG When compared with ECG of 21-JUN-2022 00:42, No significant change was found [facility] 10/05/2022 6:38 PM CDT 10/06/2022 1:47 PM CDT us [facility] ECG ORDERABLES Final Result [facility] [place] * eGFR (10/05/2022 6:36 PM CDT) Pathologist [facility] eGFR 95 mL/min/1. 73 m2 MARY JANE PHAM Comment: [...] last reviewed 2021. Testing performed by: [address] [address] Blood 10/05/2022 6:36 PM CDT 10/05/2022 6:58 PM CDT us [facility] BLOOD ORDERABLES Final R esult MARY JANE PHAM [address] [place] [address] Department [place] [address] * Differential, auto (10/05/2022 6:36 PM CDT) Neutrophil abs 6.4 1.7 - 6.5 K/cumm MARY JANE Comment:Testing performed by : [address] [address] Imm gran abs 0.0 0.0 - 0.1 K/cumm MARY JANE Comment:Testing performed by : [address] [address] Lymphocyte abs 2.9 0.8 - 3.3 K/cumm MARY JANE Comment:Testing performed by : [address] [address] Monocyte abs 0.7 0.2 - 0.8 K/cumm MARY JANE Comment:Testing performed by : [address] [address] Eosinophil abs 0.3 0.0 - 0.5 K/cumm MARY JANE Comment:Testing performed by : [address] [address] Basophil abs 0.0 0.0 - 0.1 K/cumm MARY JANE Comment:Testing performed by : [address] [address] Neutrophil pct 61.2 % [facility] Comment: Interpretive Data Percent cell count reference ranges are not reported, since discordance with absolute values may lead to misinterpretation of CBC data. Current Interpretive Data was last revised on 2017. Testing performed by: [address] [address] Imm gran pct 0.4 % [facility] Comment: Interpretive Data Percent cell count reference ranges are not reported, since discordance with absolute values may lead to misinterpretation of CBC data. Current Interpretive Data was last revised on 2017. Testing performed by: [address] [address] Lymphocyte pct 27.9 % [facility] Comment: Interpretive Data Percent cell count reference ranges are not reported, since discordance with absolute values may lead to misinterpretation of CBC data. Current Interpretive Data was last revised on 2017. Testing performed by: [address] [address] Monocyte pct 7.0 % [facility] Comment: Interpretive Data Percent cell count reference ranges are not reported, since discordance with absolute values may lead to misinterpretation of CBC data. Current Interpretive Data was last revised on 2017. Testing performed by: [address] [address] Eosinophil pct 3.1 % [facility] Comment: Interpretive Data Percent cell count reference ranges are not reported, since discordance with absolute values may lead to misinterpretation of CBC data. Current Interpretive Data was last revised on 2017. Testing performed by: [address] [address] Basophil pct 0.4 % [facility] Comment: Interpretive Data Percent cell count reference ranges are not reported, since discordance with absolute values may lead to misinterpretation of CBC data. Current Interpretive Data was last revised on 2017. Testing performed by: [address] [address] Blood 10/05/2022 6:36 PM CDT 10/05/2022 6:59 PM CDT [facility] BLOOD ORDERABLES Final R esult Performing Organization Address City/[facility]/ZIP Co de Phone Number MARY JANE [address] [facility] Department [place] [address] * Influenza A/B, RSV, and COVID-19 PCR Nasopharyngeal (10/05/2022 6:36 PM CDT) COVID-19 RNA Negative Negative [facility] Comment:Testing performed by : [address] [address] Influenza A RNA Negative Negative [facility] Comment:Testing performed by : [address] [address] Influenza B RNA Negative Negative [facility] Comment:Testing performed by : [address] [address] RSV RNA Negative Negative [facility] Comment: Interpretive data: This test is performed using the Dianxin[employer] Xpress CoV-2/Flu/RSV plus assay. This is a multiplex, real-time reverse transcriptase PCR assay intended for the qualitative detection of nucleic acid from SARS-CoV-2, influenza A, influenza B, and respiratory syncytial virus. This assay has been reviewed by the FDA for Emergency Use Authorization (EUA). The performance characteristics have been verified by the performing laboratory. Results must be considered in the clinical context, and a negative result does not rule out infection. Interpretive Data last revised 2021. Testing performed by: [address] [address] Nasopharyngeal 10/05/2022 6: 36 PM CDT 10/05/2022 6:59 PM CDT Narrative [facility] - 10/05/2022 7:38 PM CDT Is the Patient experiencing symptoms consistent with COVID?->Yes Date of Symptom Onset->10/05/22 Reason for testing?->Symptomatic [facility] MICROBIOLOGY - GENERAL O RDERABLES Final Result MARY JANE [address] [facility] Department [place] [address] * (ABNORMAL) Troponin T high-sensitivity series (baseline, 2hr, 4hr, 6hr) (10/05/2022 6:36 PM CDT) Trop T hs 23(H) <=14 ng/L MARY JANE PHAM Comment: Ref Range High Interpretive Data For further hscTnT resources including the diagnostic algorithm and an aid in interpretation, copy and paste this link: https://nrl.testcatalog.org/show/hsTrop Current Interpretive Data last revised 2020. Testing performed by: [facility], [address] [place] [address]., [address] Blood 10/05/2022 6:36 PM CDT 10/05/2022 6:58 PM CDT us [facility] BLOOD ORDERABLES Edited Result - Final MARY JANE PHAM [address] [facility] Department [place] [address] * Pro B-type natriuretic peptide (10/05/2022 6:36 PM CDT) NT-proBNP 49 <=300 pg/mL MARY JANE PHAM Comment: Interpretive Comments: A. Dyspnea in Acute [...] Last Revised Date: 2017. Testing performed by: [address] [address] Blood 10/05/2022 6:36 PM CDT 10/05/2022 6:58 PM CDT us [facility] BLOOD ORDERABLES Final R esult [facility] [address] [facility] Department [place] [address] * Comprehensive metabolic panel (10/05/2022 6:36 PM CDT) Sodium 136 135 - 145 mmol/L MARY JANE PHAM Comment:Testing performed by : [address] [address] Potassium, pl 3.9 3.3 - 4.9 mmol/L MARY JANE PHAM Comment:Testing performed by : [address] [address] Chloride 98 97 - 110 mmol/L MARY JANE PHAM Comment:Testing performed by : [address] [address] CO2 25 22 - 32 mmol/L [facility] Comment:Testing performed by : [address] [address] Anion gap 13 2 - 15 mmol/L MARY JANE Comment:Testing performed by : [address] [address] BUN 15 8 - 25 mg/dL MARY JANE Comment:Testing performed by : [address] [address] Creatinine 0.70 0.60 - 1.10 mg/dL [facility] Comment:Testing performed by : [address] [address] Glucose 186 70 - 199 mg/dL [facility] Comment: Interpretive Data Fasting glucose >/= 126 [...] last revised 2022. Testing performed by: [address] [address] Calcium 10.1 8.5 - 10.3 mg/dL [facility] Comment:Testing performed by : [address] [address] Bilirubin, total 0.4 0.1 - 1.2 mg/dL [facility] Comment:Testing performed by : [address] [address] Protein, pl 8.5 6.5 - 8.5 g/dL MARY JANE Comment:Testing performed by : [address] [address] Albumin 4.0 3.5 - 5.0 g/dL MARY JANE Comment:Testing performed by : [address] [address] Alk phos 89 40 - 130 Units/L MARY JANE PHAM Comment:Testing performed by : [address] [address] ALT 21 7 - 45 Units/L MARY JANE PHAM Comment:Testing performed by : [address] [address] AST 21 10 - 45 Units/L MARY JANE PHAM Comment:Testing performed by : [address] [address] Blood 10/05/2022 6:36 PM CDT 10/05/2022 6:58 PM CDT us [facility] BLOOD ORDERABLES Final R esult MARY JANE [facility] Department [place] [address] * (ABNORMAL) CBC with auto differential (10/05/2022 6:36 PM CDT) [facility] WBC 10.5(H) 3.8 - 9.9 K/cumm MARY JANE PHAM Comment:Testing performed by : [address] [address] Hgb 13.6 11.9 - 15.5 g/dL MARY JANE PHAM Comment:Testing performed by : [address] [address] Hct 42.7 35.6 - 45.5 % MARY JANE PHAM Comment:Testing performed by : [address] [address] Plt 301 150 - 400 K/cumm MARY JANE PHAM Comment:Testing performed by : [address] [address] MPV 9.7 9.1 - 12.3 fL MARY JANE PHAM Comment:Testing performed by : [address] [address] RBC 4.77 3.90 - 5.20 M/cumm MARY JANE PHAM Comment:Testing performed by : [address] [address] MCV 89.5 81.3 - 96.4 fL MARY JANE PHAM Comment:Testing performed by : [facility], [address] [place] [address]., [address] MCH 28.5 27.1 - 33.3 pg MARY JANE PHAM Comment:Testing performed by : [address] [address] MCHC 31.9(L) 32.3 - 35.7 g/dL MARY JANE PHAM Comment:Testing performed by : [address] [address] RDW CV 13.8 11.1 - 14.9 % MARY JANE PHAM Comment:Testing performed by : [address] [address] RDW SD 45.5 35.7 - 48.1 fL MARY JANE PHAM Comment:Testing performed by : [address] [address] NRBC abs 0.00 0.00 - 0.01 K/cumm MARY JANE PHAM Comment:Testing performed by : [address] [address] Blood 10/05/2022 6:36 PM CDT 10/05/2022 6:59 PM CDT [facility] BLOOD ORDERABLES Final R esult MARY JANE [address] [facility] Department [place] [address] documented in this encounter Visit Diagnoses Diagnosis Shortness of breath- Primary Other fatigue documented in this encounter Administered Medications Inactive Administered Medications - up to 3 most recent administrations Medication Order MAR Action Action Date Dose Rate Site HYDROcodone-acetaminophen (NORCO) 7.5-325 mg per tablet 1 tablet 1 tablet, oral, Once, On Mon10/05/22 at 2331, For 1 dose, Indications: PainIndications:Pain Given 10/05/2022 11:32 PM CDT 1 tablet ioversoL (OPTIRAY 350) syringe 100 mL 100 mL, intravenous, Once in imaging, contrast, Starting on Mon10/05/22 at 2146, For 1 dose Contrast Given 10/05/2022 10:22 PM CDT 100 mL ipratropium-albuteroL (DUO-NEB) 0.5-2.5 mg/3 mL nebulizer solution 3 mL 3 mL, nebulization, Once, On Mon10/05/22 at 2140, For 1 dose, Indications: Chronic Obstructive Pulmonary Disease with BronchospasmsIndications:Crm Marketing Specialist renetta Obstructive Pulmonary Disease with Bronchospasms Given 10/05/2022 9:46 PM CDT 3 mL documented in this encounter Active and Recently Administered Medications Times are shown in CDT. Scheduled Medication Order 10/04/2022 10/05/2022 10/06/2022 HYDROcodone-acetaminophen (NORCO) 7.5-325 mg per tablet 1 tablet (COMPLETED) 1 tablet, oral, Once, On Mon10/05/22 at 2331, For 1 dose, Indications: Pain 233 (Given - Provider: Yanni Suarez, RN) ipratropium-albuteroL (DUO-NEB) 0.5-2.5 mg/3 mL nebulizer solution 3 mL (COMPLETED) 3 mL, nebulization, Once, On Mon10/05/22 at 2140, For 1 dose, Indications: Chronic Obstructive Pulmonary Disease with Bronchospasms 2145 (Given - Provider: Senthil Hernandez, CELL TESTER) PRN Medication Order 10/04/2022 10/05/2022 10/06/2022 ioversoL (OPTIRAY 350) syringe 100 mL (COMPLETED) 100 mL, intravenous, Once in imaging, contrast, Starting on Mon10/05/22 at 2146, For 1 dose 222 (Contrast Given - Provider: Corinna Villareal, RT) documented in this encounter Care Teams Records Management Technician Relationship Specialty Start Date End Date Justen Gale MD [address] [address] PCP - General 10/09/17 Liu Jerez MD Consulting Physician Gastroenterology 07/28/17 [place] [address] [facility] [address] [place] [address] Consulting Physician Pulmonary Disease 08/03/17 Khris Arthur MD [address] [facility] [address] [place] [address] Medical Oncologist/Print Journalist Medical Oncology 10/23/17 [place] [address] [facility] [address] [place] [address] Surgeon Orthopedic Surgery 10/23/17 [place] [address] [facility] [address] [place] [address] Consulting Physician Pain Management 10/23/17 [place] [address] [facility] [address] [place] [address] Referring Physician General Surgery 01/26/18 [place] [address] [facility] [address] [place] [address] Consulting Physician Neurology 01/26/18 documented as of this encounter
--- OUTSIDE RECORDS SUMMARY | 2024-04-26 04:19 | XMS_ITS | Encounter Summary ---
Author Organization [facility] Address [address] [place] [address] Phone Care Team Providers Care Preschool Aide Name Role Phone Liu Jerez MD Unavailable Albert Corbin MD Unavailable [phone] Justne Gale MD Primary Care Provider [phone] Khris Arthur MD Unavailable [phone] Ko Melendez MD Unavailable [phone] John Paul Moyer MD Unavailable [phone] Annel Rod MD Unavailable Anali MARSHALL MD, Carlos M. Unavailable [phone] Encounter Details Date Type Department Care Team (Late st Contact Info) Description 08/02/2022 Orders Only [facility] Oncology [address] [facility] 7[address] [place] [address] [place] [address] Khris Arthur MD [address] [facility] [address] [place] [address] Social History Tobacco Use Types Packs/Day Years [...] How often do you attend chur or latter day services? Never 02/11/2022 Do you belong to any clubs o r organizations such as sabianist groups, unions, fraternal or athletic groups, or [...] file Legal Sex Female 12:24 AM [employer] Gender Identity Not on file Sexual Orientation Not on file documented as of this encounter Plan of Treatment Not on file documented as of this encounter Visit Diagnoses Not on filedocumented in this encounter Care Teams Preschool Aide Relationship Specialty Start Date End Date Justen Gale MD [address] [facility] [address] [place] [address] PCP - General 10/09/17 Liu Jerez MD Consulting Physician Gastroenterology 07/28/17 [place] [address] [address] [facility] [address] [place] [address] Consulting Physician Pulmonary Disease 08/03/17 Khris Arthur MD [address] [facility] [address] [place] [address] Medical Oncologist/Cargo Inspector Medical Oncology 10/23/17 [place] [address] [address] [facility] [address] [place] [address] Surgeon Orthopedic Surgery 10/23/17 [place] [address] [address] [place] [address] Consulting Physician Pain Management 10/23/17 [place] [address] [facility] [address] [place] [address] Referring Physician General Surgery 01/26/18 [place] [address] [address] [place] [address] Consulting Physician Neurology 01/26/18 documented as of this encounter
--- OUTSIDE RECORDS SUMMARY | 2024-04-26 04:19 | XMS_ITS | Encounter Summary ---
Author Organization [facility] Healthcare Address [address] [place] [address] Care Team Providers Care Bank Guard Name Role Phone Liu Jerez MD Unavailable Albert Corbin MD Unavailable [phone] Justen Gale MD Primary Care Provider Khris Arthur MD Unavailable [phone] Ko Melendez MD Unavailable John Paul Moyer MD Unavailable Annel Rod MD Unavailable Anali MARSHALL MD, Carlos M. Unavailable Reason for Visit * Reason Comments Fall Encounter Details Date Type Department Care Team (Late st Contact Info) Description 12/11/2022 6:41 PM CDT - 12/11/2022 8:12 PM CDT Emergency [facility] Emergency Department [address] [place] [id number] Closed head injury, initial encounter (Primary Dx); Fall, initial encounter Discharge Disposition: Discharge to home or self [...] you attend chur ch or gnosticism services? Never 02/11/2022 Do you belong to [...] medical appointments or from getting medications? No 10/2 04/2021 In the past 12 months, has l [...] in a care home (including now)? 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 Gender Identity Not on file Sexual Orientation Not on file documented as of this encounter Last Filed Vital Signs Vital Sign Reading Time Taken Comments Blood Pressure 137/74 12/11/2022 8:01 PM CDT Pulse 85 12/11/2022 8:01 PM CDT Temperature 36.9 ??C (98.4 ??F) 12/11/2022 5:14 PM CD T Respiratory Rate 20 12/11/2022 8:01 PM CDT Oxygen Saturation 100% 12/11/2022 8:01 PM CDT Inhaled Oxygen Concentration - - Weight 129.3 kg (285 lb) 12/11/2022 5:14 PM CDT Height 154.9 cm (5' 1 ) 12/11/2022 5:14 PM CDT Body Mass Index 53.85 12/11/2022 5:14 PM CDT documented in this encounter Discharge Instructions * Discharge Instructions* Lila Gasca PA - 12/11/2022 7:49 PM CDT Please follow up with your primary care physician, as soon as possible, and ideally within 7 days. Please take any new medications as prescribed. Please return to the emergency department for worsening of your symptoms or any new problems which may arise. It is mandatory that you follow up, as recommended, with a primary care physician or specialist, per your discharge paperwork.You have received emergency care only at your visit today, an this is nota substitute for ongoing care, further evaluation, or treatment. Therefore, follow-up as directed is not optional, but mandatory. This ensures that any incidental abnormal radiographic and laboratoryfindings are evaluated appropriately. Return immediately for any new symptoms, worsening of symptoms, or persistent symptoms. We are open14/11 and will take care of you. * Attachments The following attachments cannot be sent through Care Everywhere. * Fall Prevention (AfterCare(R) Instructions(ER/ED)) (Faroese) * Post Concussion Syndrome (AfterCare(R) Instructions(ER/ED)) (Faroese) documented in this encounter Medications at Time of Discharge albuterol HFA (PROVENTIL HFA,VENTOLIN HFA,PROAIR HFA) 90 mcg/actuation inhaler Inhale 2 puffs every 6 (six) hours as needed for wheezing or shortness of breath 04/19/2021 BD Ultra-Fine Short Pen Needle 31 gauge x 5/16 needle USE 6 TIMES DAILY DIRECTED 06/24/2021 blood glucose diagnostic (Hybrid Logicuch Ultra Test) strip 4 (four) times a day 02/01/2021 naloxone (NARCAN) 4 mg/actuation spray,non-aerosol 05/13/2021 oxyBUTYnin XL (DITROPAN XL) 15 mg 24 hr tablet Take 1 tablet (15 mg total) by mouth daily 06/28/2022 rOPINIRole (REQUIP) 5 mg tablet Take 1 tablet (5 mg total) by mouth nightly Taken at 2100 amitriptyline (ELAVIL) 25 mg tablet Take 25 mg by mouth nightly 05/21/2018 08/18/19 24 exemestane (AROMASIN) 25 mg tabletIndications: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, unspecified estrogen receptor status (HCC),Malignant neoplasm of overlapping sites of left female breast, unspecified estrogen receptor status (HCC),Malignant neoplasm of female breast, unspecified estrogen receptor status, unspecified laterality, unspecified site of breast (HCC) Take 1 tablet (25 mg total) by mouth nightly 90 tablet 06/20/2022 12/15/19 23 HumaLOG 100 unit/mL pen for injection 07/14/2022 0 24 hydroCHLOROthiazide (MICROZIDE) 12.5 mg capsule Take 1 capsule (12.5 mg total) by mouth daily 07/16/2022 08/24/19 24 HYDROcodone-acetami nophen (NORCO) 10-325 mg per tablet Take 1 tablet by mouth every 6 (six) hours 08/20/2021 10/31/19 24 hydrOXYzine (ATARAX) 10 mg tabletIndications:P ruritus of Skin Take 1 tablet (10 mg total) by mouth 2 (two) times a day as needed for itching for up to 7 days 14 tablet 09/14/2022 08/24/19 24 insulin glargine (LANTUS) 100 unit/mL injection Inject 40 Units under the skin daily. Takes in the morning 01/26/2018 08/18/19 24 insulin lispro (HumaLOG) 100 unit/mL injection Inject 12 Units under the skin 3 (three) times a day before meals. 01/26/2018 12/28/19 24 lidocaine viscous (XYLOCAINE) 2 % solution Take 5-10 mL by mouth every 4 (four) hours as needed (sorethroat) 200 mL 10/21/2021 01/27/20 23 meclizine (ANTIVERT) 25 mg tablet Take 1 tablet (25 mg total) by mouth 3 (three) times a day as needed for dizziness 30 tablet 01/28/2022 01/27/20 23 methenamine (HIPREX) 1 gram tablet Take 1 tablet (1,000 mg total) by mouth 2 (two) times a day 04/27/2022 08/18/19 24 mupirocin (BACTROBAN) 2 % ointment mupirocin 2 % topical ointment 01/27/20 23 nystatin powder Apply 1 application topically daily 11/09/2021 01/27/20 23 ondansetron (ZOFRAN) 4 mg tablet Take 1 tablet (4 mg total) by mouth every 6 (six) hours 12 tablet 03/08/2022 01/27/20 23 ondansetron ODT (ZOFRAN-ODT) 4 mg disintegrating tablet Take 1 tablet (4 mg total) by mouth every 8 (eight) hours as needed for nausea or vomiting 20 tablet 04/05/2022 01/27/20 23 oxybutynin (DITROPAN) 5 mg tablet take 1 tablet by oral route every day 0 0 12/12/2013 01/27/[address] (PROTONIX) 40 mg EC tabletIndications:T reatment of Non-Bleeding Gastric Disorder Take 1 tablet (40 mg total) by mouth 2 (two) times a day 60 tablet 09/14/2021 01/27/20 23 rivaroxaban (Xarelto) 20 mg tabletIndications:C hronic anticoagulation,His [...] by mouth daily 30 tablet 3 11/22/2022 05/23/19 24 documented as of this encounter Discharge Disposition Disposition Code Departure Means Destination Comment s Discharge to home or self care documented in this encounter ED Notes * Lila Gasca PA - 12/11/2022 7:48 PM CDT CHIEF COMPLAINT: Chief Complaint Patient presents with Fall HPI 7:56 PM Karly Marques is a 67 y.o. female presenting to the ED c/o fall. Pt was weeding in her garden when she pulled backwards on a large weed and fell backwards and hit her head on a stone in the garden. She did not lose consciousness. She is complaining of pain to her head, neck, all down her back, and R shoulder. She is not on blood thinners. PCP: Justen Gale MD PAST MEDICAL HISTORY [...] (NORCO) 5-325 mg per tablet 1 tablet (has no administration in time range) ondansetron ODT (ZOFRAN-ODT) disintegrating tablet 4 mg (4 mg oral Given 12/11/22 1845) CURRENT HOME MEDICATIONS Current Facility-Administered Medications: HYDROcodone-acetaminophen (NORCO) 5-325 mg per tablet 1 tablet, 1 tablet, oral, Once, Lila Gasca PA Current Outpatient Medications: albuterol HFA (PROVENTIL HFA,VENTOLIN [...] 1 tablet by mouth every 6 (six) hours(Patient not taking: Reported on 08/02/2022), Disp: , Rfl: hydrOXYzine (ATARAX) 10 mg [...] a day before meals), Disp: , Rfl: lidocaine viscous (XYLOCAINE) 2 % solution, Take 5-10 mL by mouth every 4 (four) hours as needed (sorethroat) (Patient not taking: Reported on 08/02/2022), Disp: 200 mL, Rfl: 0 meclizine (ANTIVERT) 25 mg tablet, Take 1 tablet (25 mg total) by mouth 3 (three) times a day as needed for dizziness (Patient not taking: Reported on 08/02/2022), Disp: 30 tablet, Rfl: 0 methenamine (HIPREX) 1 gram tablet, Take 1 tablet (1,000 mg total) by mouth 2 (two) times a day, Disp: , Rfl: mupirocin (BACTROBAN) 2 % ointment, mupirocin 2 % topical ointment (Patient not taking: Reported on08/02/2022), Disp: , Rfl: naloxone (NARCAN) 4 mg/actuation spray,non-aerosol, CALL 911. SPR CONTENTS OF ONE SPRAYER (0.1ML) INTO ONE NOSTRIL. REPEAT IN 2-3 MIN IF SYMPTOMS OF OPIOID EMERGENCY PERSIST, ALTERNATE NOSTRILS (Patient not taking: Reported on 08/02/2022), Disp: , Rfl: nystatin powder, Apply 1 application topically daily (Patient not taking: Reported on 08/02/2022), Disp: , Rfl: ondansetron (ZOFRAN) 4 mg tablet, Take 1 tablet (4 mg total) by mouth every 6 (six) hours (Patient not taking: Reported on 08/02/2022), Disp: 12 tablet, Rfl: 0 ondansetron ODT (ZOFRAN-ODT) 4 mg disintegrating tablet, Take 1 tablet (4 mg total) by mouth every 8 (eight) hours as needed for nausea or vomiting (Patient not taking: Reported on 08/02/2022), Disp: 20 tablet, Rfl: 0 oxybutynin (DITROPAN) 5 mg tablet, take 1 tablet by oral route every day (Patient not taking: Reported on 08/02/2022), Disp: 0, Rfl: 0 oxybutynin XL (DITROPAN-XL) 10 mg 24 hr tablet, TAKE 1 TABLET BY MOUTH EVERY DAY FOR OVERACTIVE BLADDER, Disp: , Rfl: pantoprazole DR (PROTONIX) 40 mg EC tablet, Take 1 tablet (40 mg total) by mouth 2 (two) times a day, Disp: 60 tablet, Rfl: 0 rivaroxaban (Xarelto) 20 mg tablet, Take 1 [...] EXAM TRIAGE VITAL SIGNS: ED Triage Vitals [12/11/22 1714] Temp Pulse Resp BP SpO2 36.9 ??C (98.4 ??F) 86 18 163/73 100 % Temp src Heart Rate Source Patient Position BP Location FiO2 (%) Oral -- -- -- -- Height Height Method Weight Weight Method 1.549 m (5' 1 ) Stated 129.3 kg (285 lb) Stated Physical Exam Vitals and nursing note reviewed. Constitutional: General: She is not in acute distress. Appearance: She is well-developed. She is obese. Comments: Pleasant female, no acute distress HENT: Head: Normocephalic and atraumatic. Eyes: Conjunctiva/sclera: [...] tenderness. There is no guarding. Musculoskeletal: General: Tenderness (diffuse lumbar) present. Cervical back: Neck supple. Tenderness present. Skin: General: Skin is warm and dry. Neurological: Mental Status: She is alert and oriented to person, place, and time. LABS Labs Reviewed - No data to display RADIOLOGY Impression: IMPRESSION: 1. No acute intracranial findings. 2. No CT evidence of acute traumatic injury to cervical spine. No thoracic vertebral compression fracture or traumatic malalignment. : No definite lumbar vertebral compression fracture or traumatic malalignment. IMPRESSION: No acute osseous abnormality R Shoulder EKG NA ED COURSE/MEDICAL DECISION MAKING Differential diagnosis included but not limited to strain, sprain, fracture, hemorrhage, concussion Patient's medical records were reviewed. Pt took home norco. Was given zofran in ED. Imaging unremarkable. Advise rest at home, follow up toPCP. Pt's here to take pt home. Procedures FINAL IMPRESSION Closed head injury, initial encounter DISPOSITION: Home All findings were discussed with patient. Pt agreeable with plan. Non toxic appearing, vitals stable. Patient stable for discharge home. Given return to ER precautions If discharged, close outpatient follow-up with a low threshold to return has been mandated, concerning symptoms have been emphasized in detail, and this patient expresses understanding PATIENT INSTRUCTED TO FOLLOW UP Justen Gale MD [address] [place], [place] [id number] Call in 1 week DISCHARGE MEDICATIONS Your medication list [...] unit/mL vial for injection Commonly known as: LANTUS SEMGLEE Inject 40 Units under the skin daily. Takes in the morning insulin lispro 100 unit/mL vial for injection Commonly known as: HumaLOG ADMELOG Inject 12 Units under the skin 3 (three) times a day before meals. HumaLOG 100 unit/mL pen for injection Generic drug: insulin lispro lidocaine viscous 2 % solution Commonly known as: XYLOCAINE Take 5-10 mL by mouth every 4 (four) hours as needed (sorethroat) meclizine 25 mg tablet Commonly known as: ANTIVERT Take 1 tablet (25 mg total) by mouth 3 (three) times a day as needed for dizziness methenamine 1 gram tablet Commonly known as: HIPREX Take 1 tablet (1,000 mg total) by mouth 2 (two) times a day mupirocin 2 % ointment Commonly known as: BACTROBAN mupirocin 2 % topical ointment naloxone 4 mg/actuation spray,non-aerosol Commonly known as: NARCAN CALL 911. SPR CONTENTS OF ONE SPRAYER (0.1ML) INTO ONE NOSTRIL. REPEAT IN 2-3 MIN IF SYMPTOMS OF OPIOID EMERGENCY PERSIST, ALTERNATE NOSTRILS nystatin powder Apply 1 application topically daily ondansetron 4 mg tablet Commonly known as: ZOFRAN Take 1 tablet (4 mg total) by mouth every 6 (six) hours ondansetron ODT 4 mg disintegrating tablet Commonly known as: ZOFRAN-ODT Take 1 tablet (4 mg total) by mouth every 8 (eight) hours as needed for nausea or vomiting OneTouch Ultra Test strip Generic drug: blood glucose diagnostic 4 (four) times a day oxyBUTYnin 5 mg tablet Commonly known as: DITROPAN take 1 tablet by oral route every day oxyBUTYnin XL 10 mg 24 hr tablet Commonly known as: DITROPAN-XL TAKE 1 TABLET BY MOUTH EVERY DAY FOR OVERACTIVE BLADDER pantoprazole DR 40 mg EC tablet Commonly known as: PROTONIX Take 1 tablet (40 mg total) by mouth 2 (two) times a day rivaroxaban 20 mg tablet Commonly known as: Xarelto Take 1 tablet (20 mg total) by mouth daily rOPINIRole 5 mg tablet Commonly known as: REQUIP Take 1 tablet (5 mg total) by mouth nightly This examination was transcribed using the [employer]ian[employer] voice recognition system without human fisher scallop. In an effort to expedite patient care, this report has not been adjusted for typographical, grammatical, and syntax by a trained medical nurse. Lila Gasca PA 12/11/221955 Cosigned by Yesenia Dunn DO at 12/15/2022 6:19 AM CDT Associated attestation - Yesenia Dunn DO - 12/15/2022 6:19 AM CDT ED Attestation I did not see this patient. However, I was personally available for consultation in the ED for thispatient if the Advanced Practice Provider (ERIC) needed any assistance. The ERIC evaluated the patient independently and completed their own examination, documentation, and disposition. * Marce Canas RN - 12/11/2022 5:12 PM CDT Fell backwards at 1300 and hit back of head on brick landscaping. Denies LOC. States she takes xarelto. C/o headache, neck and entire back pain, rt shoulder and upper arm pain. C collar applied in triage documented in this encounter Plan of Treatment Not on file documented as of this encounter Procedures Procedure Name Priority Date/Time Associated Diagnosis Comments CT LUMBAR SPINE WO CONTRAST ED 12/11/2022 5:[address] THORACIC SPINE WO CONTRAST ED 12/11/2022 5:[address] CERVICAL SPINE WO CONTRAST ED 12/11/2022 5:[address] HEAD WO CONTRAST ED 12/11/2022 5 :55 PM CDT XR SHOULDER RIGHT 2 OR MORE VIEWS ED 12/11/2022 5:40 PM CDT documented in this encounter Results * CT Lumbar Spine WO Contrast (12/11/2022 5:55 PM CDT) Anatomical Region Laterality Modality Spine N/A Computed Tomogra phy 12/11/2022 6:24 PM CDT Narrative 12/11/2022 6:30 PM CDT EXAM DESCRIPTION: ?? CT LUMBAR SPINE WO CONTRAST REASON FOR STUDY: ?? Back pain or radiculopathy, trauma, back pain ?? Fell backwards at 1300 and hit back of head on brick landscaping. ??Denies LOC. States she takes xarelto. C/o headache, neck and entire back pain, rt shoulder and upper arm pain. ??C collar applied in triage ? TECHNIQUE: Axial images acquired through the lumbar spine without intravenous contrast. ??Reconstructed coronal and sagittal MPR images reviewed. ??All images stored on PACS. Automated exposure control was used as a dose optimization technique for this examination. COMPARISON: ?? CT lumbar spine October 09, 2017, CT abdomen pelvis February 09, 2022 FINDINGS: SEGMENTATION: ?? The lowest well-developed disc space is labeled L5-S1. ALIGNMENT: ?? Increased lumbar lordosis. ??No traumatic malalignment. VERTEBRAE: ?? Study is degraded by patient body habitus and photon starvation artifact. ??No definite lumbar vertebral compression fracture. ??Osseous demineralization. ??Facet arthropathy. DISC HEIGHT: ?? Well preserved. HARDWARE: ?? None in the spine. INDIVIDUAL DISC LEVELS: ?? No significant osseous spinal canal stenosis. ?? Osteophyte narrows the right L4-5 neural foramen. SOFT TISSUES: ?? Narrowing and sclerosis of the sacroiliac joints with vacuum phenomenon. ??Vascular calcifications. ??Narrowing and sclerosis of the pubic symphysis. ??Colonic diverticulosis without diverticulitis. OTHER: ?? No other significant finding. IMPRESSION: No definite lumbar vertebral compression fracture or traumatic malalignment. THIS IS AN ELECTRONICALLY VERIFIED FINAL REPORT 12/11/2022 6:30 PM - Electronically signed by ??Dulce Danielson D.O. AC: JUDY D: ??12/11/2022 6:30 PM T: ??12/11/2022 6:30 PM Report ID: [id number] Reading Location: ??[id number] Procedure Note Dulce Danielson DO - 12/11/2022 EXAM DESCRIPTION: CT LUMBAR SPINE WO CONTRAST REASON FOR STUDY: Back pain or radiculopathy, trauma, back pain Fell backwards at 1300 and hit back of head on brick landscaping. DeniesLOC. States she takes xarelto. C/o headache, neck and entire back pain, rt shoulder and upper arm pain. C collar applied in triage TECHNIQUE: Axial images acquired through the lumbar spine withoutintravenous contrast. Reconstructed coronal and sagittal MPR images reviewed. Allimages stored on PACS. Automated exposure control was used as a dose optimization technique forthis examination. COMPARISON: CT lumbar spine October 09, 2017, CT abdomen pelvis February 09, 2022 FINDINGS: SEGMENTATION: The lowest well-developed disc space is labeled L5-S1. ALIGNMENT: Increased lumbar lordosis. No traumatic malalignment. VERTEBRAE: Study is degraded by patient body habitus and photonstarvation artifact. No definite lumbar vertebral compression fracture. Osseous demineralization. Facet arthropathy. DISC HEIGHT: Well preserved. HARDWARE: None in the spine. INDIVIDUAL DISC LEVELS: No significant osseous spinal canal stenosis. Osteophyte narrows the right L4-5 neural foramen. SOFT TISSUES: Narrowing and sclerosis of the sacroiliac joints withvacuum phenomenon. Vascular calcifications. Narrowing and sclerosis of thepubic symphysis. Colonic diverticulosis without diverticulitis. OTHER: No other significant finding. IMPRESSION: No definite lumbar vertebral compression fracture or traumatic malalignment. THIS IS AN ELECTRONICALLY VERIFIED FINAL REPORT 12/11/2022 6:30 PM - Electronically signed by Dulce Danielson D.O. AC: JUDY Report ID: [id number] Reading Location: [id number] [facility]KE[facility] IMG CT PROCEDURES Final Resu lt * CT Thoracic Spine WO Contrast (12/11/2022 5:55 PM CDT) Anatomical Region Laterality Modality Spine N/A Computed Tomogra phy 12/11/2022 6:20 PM CDT Narrative 12/11/2022 6:24 PM CDT EXAM DESCRIPTION: ?? CT THORACIC SPINE WO CONTRAST REASON FOR STUDY: ?? Mid-back pain ?? Fell backwards at 1300 and hit back of head on brick landscaping. ??Denies LOC. States she takes xarelto. C/o headache, neck and entire back pain, rt shoulder and upper arm pain. ??C collar applied in triage ? TECHNIQUE: Axial images acquired through the thoracic spine without intravenous contrast. ??Images reviewed with lung, soft tissue and bone windows. ??Reconstructed coronal and sagittal MPR images reviewed. ??Images stored on PACS. Automated exposure control was used as a dose optimization technique for this examination. COMPARISON: ?? MRI thoracic spine January 21, 2019, CT chest October 05, 2022 FINDINGS: ALIGNMENT: ?? Normal. VERTEBRAE: ?? Thoracic vertebral body heights are intact. ??No aggressive appearing osseous lesion. DISC HEIGHT: ?? Disc space narrowing in the mid and lower thoracic spine with endplate degenerative change and spondylosis. HARDWARE: ?? Central spinal canal spinal stimulator leads at T7-8 vertebral level. THORACIC DISCS T1-T12: ?? No significant osseous spinal stenosis stenosis. SOFT TISSUES: ?? Unremarkable OTHER: ?? No other significant abnormality. IMPRESSION: ?? No thoracic vertebral compression fracture or traumatic malalignment. THIS IS AN ELECTRONICALLY VERIFIED FINAL REPORT 12/11/2022 6:24 PM - Electronically signed by ??Dulce Jagjit Breen July Jagjit Breen AC: JUDY D: ??12/11/2022 6:24 PM T: ??12/11/2022 6:24 PM Report ID: [id number] Reading Location: ??[id number] Procedure Note Dulce Danielson DO - 12/11/2022 EXAM DESCRIPTION: CT THORACIC SPINE WO CONTRAST REASON FOR STUDY: Mid-back pain Fell backwards at 1300 and hit back of head on brick landscaping. DeniesLOC. States she takes xarelto. C/o headache, neck and entire back pain, rt shoulder and upper arm pain. C collar applied in triage TECHNIQUE: Axial images acquired through the thoracic spine without intravenous contrast. Images reviewed with lung, soft tissue and bone windows. Reconstructed coronal and sagittal MPR images reviewed. Images stored on PACS. Automated exposure control was used as a dose optimization technique for this examination. COMPARISON: MRI thoracic spine January 21, 2019, CT chest September FINDINGS: ALIGNMENT: Normal. VERTEBRAE: Thoracic vertebral body heights are intact. No aggressive appearing osseous lesion. DISC HEIGHT: Disc space narrowing in the mid and lower thoracic spinewith endplate degenerative change and spondylosis. HARDWARE: Central spinal canal spinal stimulator leads at T7-8 vertebral level. THORACIC DISCS T1-T12: No significant osseous spinal stenosis stenosis. SOFT TISSUES: Unremarkable OTHER: No other significant abnormality. IMPRESSION: No thoracic vertebral compression fracture or traumatic malalignment. THIS IS AN ELECTRONICALLY VERIFIED FINAL REPORT 12/11/2022 6:24 PM - Electronically signed by Dulce Danielson D.O. 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 Fell backwards at 1300 and hit back of head on brick landscaping. ??Denies LOC. States she takes xarelto. C/o headache, neck and entire back pain, rt shoulder and upper arm pain. ??C collar applied in triage ?? ; Neck trauma (Age >= 65y) ?? Fell backwards at 1300 and hit back of head on brick landscaping. ??Denies LOC. States she takes xarelto. C/o headache, neck and entire back pain, rt shoulder and upper arm pain. ??C collar applied in triage ? TECHNIQUE: Axial images acquired through the brain without intravenous contrast. ??Images stored on PACS. ?? Automated exposure control was used as a dose optimization technique for this examination. Axial images acquired through the cervical spine without intravenous contrast. Images stored on PACS. Automated exposure control was used as a dose optimization technique for this examination. COMPARISON: 05/14/2022 FINDINGS: Head: BRAIN: ??No hemorrhage, edema or mass effect. No recent infarct. ?The carney-white matter differentiation is normal. ??Normal size and morphology of the ventricular system. ??No acute intraventricular hemorrhage. ??Basal cisterns are patent. ? EXTRA-AXIAL SPACES: ?? No fluid collections. No masses. CALVARIUM: ?? No fracture. SINUSES/MASTOIDS: Slight mucosal thickening of the maxillary sinuses. ?? Otherwise, ??no fluid or mucosal thickening. ORBITS: ?? No significant abnormality. OTHER: ?? No other significant abnormality. Cervical spine: There is mild cervical kyphosis centered at C5. ??There is 1 mm anterolisthesis of C4 on C5. ??The alignment of the cervical spine is otherwise normal. ??The vertebral body heights are normal and there is no acute fracture. ??There is mild multilevel cervical spine degenerative disc disease. ??There is mild multilevel facet and uncovertebral joint osteoarthritis with mild multilevel osseous neural foraminal stenosis in the cervical spine. Mild osteopenia. ??No aggressive bone lesions. ??No acute osseous abnormality in the imaged upper thoracic spine. Neck soft tissues demonstrate no definitive acute abnormality. ??There is no cervical mass or cervical lymphadenopathy. ??Imaged lung apices are clear. IMPRESSION: 1. ?? No acute intracranial findings. 2. ??No CT evidence of acute traumatic injury to cervical spine. THIS IS AN ELECTRONICALLY VERIFIED FINAL REPORT 12/11/2022 6:28 PM - Electronically signed by ??Juan R Johnson M.D. 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 DeniesLOC. States she takes xarelto. C/o headache, neck and entire back pain, rt shoulder and upper arm pain. C collar applied in triage ; Neck trauma(Age >= 65y) Fell backwards at 1300 and hit back of head on brick landscaping. DeniesLOC. States she takes xarelto. C/o headache, neck and entire back pain, rt shoulder and upper arm pain. C collar applied in triage TECHNIQUE: Axial images acquired through the brain without intravenous contrast. Images stored on PACS. Automated exposure control was used asa dose optimization technique for this examination. Axial images acquired through the cervical spine without intravenouscontrast. Images stored on PACS. Automated exposure control was used as a dose optimization technique for this examination. COMPARISON: 05/14/2022 FINDINGS: Head: BRAIN: No hemorrhage, edema or mass effect. No recent infarct. The carney-white matter differentiation is normal. Normal size and morphologyof the ventricular system. No acute intraventricular hemorrhage. Basalcisterns are patent. EXTRA-AXIAL SPACES: No fluid collections. No masses. CALVARIUM: No fracture. SINUSES/MASTOIDS: Slight mucosal thickening of the maxillary sinuses. Otherwise, no fluid or mucosal thickening. ORBITS: No significant abnormality. OTHER: No other significant abnormality. Cervical spine: There is mild cervical kyphosis centered at C5. There is 1 mmanterolisthesis of C4 on C5. The alignment of the cervical spine is otherwise normal.The vertebral body heights are normal and there is no acute fracture. Thereis mild multilevel cervical spine degenerative disc disease. There is mild multilevel facet and uncovertebral joint osteoarthritis with mildmultilevel osseous neural foraminal stenosis in the cervical spine. Mild osteopenia. No aggressive bone lesions. No acute osseousabnormality in the imaged upper thoracic spine. Neck soft tissues demonstrate no definitive acute abnormality. There isno cervical mass or cervical lymphadenopathy. Imaged lung apices are clear. IMPRESSION: 1. No acute intracranial findings. 2. No CT evidence of acute traumatic injury to cervical spine. THIS IS AN ELECTRONICALLY VERIFIED FINAL REPORT 12/11/2022 6:28 PM - Electronically signed by Juan R Johnson M.D. 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 Fell backwards at 1300 and hit back of head on brick landscaping. ??Denies LOC. States she takes xarelto. C/o headache, neck and entire back pain, rt shoulder and upper arm pain. ??C collar applied in triage ?? ; Neck trauma (Age >= 65y) ?? Fell backwards at 1300 and hit back of head on brick landscaping. ??Denies LOC. States she takes xarelto. C/o headache, neck and entire back pain, rt shoulder and upper arm pain. ??C collar applied in triage ? TECHNIQUE: Axial images acquired through the brain without intravenous contrast. ??Images stored on PACS. ?? Automated exposure control was used as a dose optimization technique for this examination. Axial images acquired through the cervical spine without intravenous contrast. Images stored on PACS. Automated exposure control was used as a dose optimization technique for this examination. COMPARISON: 05/14/2022 FINDINGS: Head: BRAIN: ??No hemorrhage, edema or mass effect. No recent infarct. ?The carney-white matter differentiation is normal. ??Normal size and morphology of the ventricular system. ??No acute intraventricular hemorrhage. ??Basal cisterns are patent. ? EXTRA-AXIAL SPACES: ?? No fluid collections. No masses. CALVARIUM: ?? No fracture. SINUSES/MASTOIDS: Slight mucosal thickening of the maxillary sinuses. ?? Otherwise, ??no fluid or mucosal thickening. ORBITS: ?? No significant abnormality. OTHER: ?? No other significant abnormality. Cervical spine: There is mild cervical kyphosis centered at C5. ??There is 1 mm anterolisthesis of C4 on C5. ??The alignment of the cervical spine is otherwise normal. ??The vertebral body heights are normal and there is no acute fracture. ??There is mild multilevel cervical spine degenerative disc disease. ??There is mild multilevel facet and uncovertebral joint osteoarthritis with mild multilevel osseous neural foraminal stenosis in the cervical spine. Mild osteopenia. ??No aggressive bone lesions. ??No acute osseous abnormality in the imaged upper thoracic spine. Neck soft tissues demonstrate no definitive acute abnormality. ??There is no cervical mass or cervical lymphadenopathy. ??Imaged lung apices are clear. IMPRESSION: 1. ?? No acute intracranial findings. 2. ??No CT evidence of acute traumatic injury to cervical spine. THIS IS AN ELECTRONICALLY VERIFIED FINAL REPORT 12/11/2022 6:28 PM - Electronically signed by ??Juan R Johnson M.D. 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 DeniesLOC. States she takes xarelto. C/o headache, neck and entire back pain, rt shoulder and upper arm pain. C collar applied in triage ; Neck trauma(Age >= 65y) Fell backwards at 1300 and hit back of head on brick landscaping. DeniesLOC. States she takes xarelto. C/o headache, neck and entire back pain, rt shoulder and upper arm pain. C collar applied in triage TECHNIQUE: Axial images acquired through the brain without intravenous contrast. Images stored on PACS. Automated exposure control was used asa dose optimization technique for this examination. Axial images acquired through the cervical spine without intravenouscontrast. Images stored on PACS. Automated exposure control was used as a dose optimization technique for this examination. COMPARISON: 05/14/2022 FINDINGS: Head: BRAIN: No hemorrhage, edema or mass effect. No recent infarct. The carney-white matter differentiation is normal. Normal size and morphologyof the ventricular system. No acute intraventricular hemorrhage. Basalcisterns are patent. EXTRA-AXIAL SPACES: No fluid collections. No masses. CALVARIUM: No fracture. SINUSES/MASTOIDS: Slight mucosal thickening of the maxillary sinuses. Otherwise, no fluid or mucosal thickening. ORBITS: No significant abnormality. OTHER: No other significant abnormality. Cervical spine: There is mild cervical kyphosis centered at C5. There is 1 mmanterolisthesis of C4 on C5. The alignment of the cervical spine is otherwise normal.The vertebral body heights are normal and there is no acute fracture. Thereis mild multilevel cervical spine degenerative disc disease. There is mild multilevel facet and uncovertebral joint osteoarthritis with mildmultilevel osseous neural foraminal stenosis in the cervical spine. Mild osteopenia. No aggressive bone lesions. No acute osseousabnormality in the imaged upper thoracic spine. Neck soft tissues demonstrate no definitive acute abnormality. There isno cervical mass or cervical lymphadenopathy. Imaged lung apices are clear. IMPRESSION: 1. No acute intracranial findings. 2. No CT evidence of acute traumatic injury to cervical spine. THIS IS AN ELECTRONICALLY VERIFIED FINAL REPORT 12/11/2022 6:28 PM - Electronically signed by Juan R Johnson M.D. AT: AT Report ID: [id number] Reading Location: [id number] Rosa [facility] CT PROCEDURES Final Result * XR Shoulder Right 2 or More Views (12/11/2022 5:40 PM CDT) Anatomical Region Laterality Modality Upper Extremities, Shoulder Right Comp uted Radiography 12/11/2022 6:19 PM CDT Narrative 12/11/2022 6:20 PM CDT EXAM DESCRIPTION: XR SHOULDER RIGHT 2 OR MORE VIEWS REASON FOR STUDY: ??Fell backwards at 1300 and hit back of head on brick landscaping. ??Denies LOC. ??States she takes xarelto. C/o headache, neck and entire back pain, rt shoulder and upper arm pain. ??C collar applied in ?? triage ? TECHNIQUE: 3 ??radiographic view(s) of the ??right shoulder . COMPARISON: Chest radiograph October 05, 2022 FINDINGS: BONES/JOINTS: No acute fracture or dislocation. ??Mild narrowing of the glenohumeral and acromioclavicular joints. ??No aggressive appearing osseous lesion. SOFT TISSUES: Right lung is clear. ?? IMPRESSION: No acute osseous abnormality. THIS IS AN ELECTRONICALLY VERIFIED FINAL REPORT 12/11/2022 6:20 PM - Electronically signed by ??Dulce Danielson D.O. AC: JUDY D: ??12/11/2022 6:20 PM T: ??12/11/2022 6:20 PM Report ID: [id number] Reading Location: ??[id number] Procedure Note Dulce Danielson DO - 12/11/2022 EXAM DESCRIPTION: XR SHOULDER RIGHT 2 OR MORE VIEWS REASON FOR STUDY: Fell backwards at 1300 and hit back of head on brick landscaping. Denies LOC. States she takes xarelto. C/o headache, neckand entire back pain, rt shoulder and upper arm pain. C collar applied in triage TECHNIQUE: 3 radiographic view(s) of the right shoulder . COMPARISON: Chest radiograph October 05, 2022 FINDINGS: BONES/JOINTS: No acute fracture or dislocation. Mild narrowingof the glenohumeral and acromioclavicular joints. No aggressive appearing osseous lesion. SOFT TISSUES: Right lung is clear. IMPRESSION: No acute osseous abnormality. THIS IS AN ELECTRONICALLY VERIFIED FINAL REPORT 12/11/2022 6:20 PM - Electronically signed by Dulce Danielson D.O. AC: JUDY Report ID: [id number] Reading Location: [id number] Rosa Nancy [facility] IM[facility] XR PROCEDURES Final Result documented in this encounter Visit Diagnoses Diagnosis Closed head injury, initial encounter- Primary Fall, initial encounter documented in this encounter Administered Medications Inactive Administered Medications - up to 3 most recent administrations Medication Order MAR Action Action Date Dose Rate Site ondansetron ODT (ZOFRAN-ODT) disintegrating tablet 4 mg 4 mg, oral, Once, On 12/11/22 at 1753, For 1 dose Given 12/11/2022 6:45 PM CDT 4 mg documented in this encounter Active and Recently Administered Medications Times are shown in CDT. Scheduled Medication Order 12/09/2022 12/10/2022 12/11/2022 HYDROcodone-acetaminophen (NORCO) 5-325 mg per tablet 1 tablet 1 tablet, oral, Once, On 12/11/22 at 1753, For 1 dose, Indications: Pain 1957 (Not Given - Pr ovider: Jayson Lawrence RN - Reason: Patient/family refused) ondansetron ODT (ZOFRAN-ODT) disintegrating tablet 4 mg (COMPLETED) 4 mg, oral, Once, On 12/11/22 at 1753, For 1 dose 184 (Given - Provid er: Lila Woo RN) documented in this encounter Orders Medications Ordered That Tyler ht Not Have Been Administered Count Last Ordered Date First Ordered Date HYDROcodone-acetaminophen (N ORCO) 5-325 mg per tablet 1 tablet 1 12/11/2022 documented in this encounter Care Teams Bank Guard Relationship Specialty Start Date End Date Justen Gale MD [address] [place] [address] PCP - General 10/09/17 Liu Jerez MD Consulting Physician Gastroenterology 07/28/17 [place] [id number] [place] [address] Consulting Physician Pulmonary Disease 08/03/17 Khris Arthur MD [address] [facility] [address] [place] [address] Medical Oncologist/Wedding Designer Medical Oncology 10/23/17 [place] [address] [place] [address] Surgeon Orthopedic Surgery 10/23/17 [place] [address] [place] [address] Consulting Physician Pain Management 10/23/17 [place] [address] [place] [address] Referring Physician General Surgery 01/26/18 [place] [address] [address] [place] [address] Consulting Physician Neurology 01/26/18 documented as of this encounter
--- OUTSIDE RECORDS SUMMARY | 2024-04-26 04:20 | XMS_ITS | Encounter Summary ---
Author Organization [facility] Address [address] [place] [address] Phone Care Team Providers Care Business Office Associate Name Role Phone Liu Jerez MD Unavailable Albert Corbin MD Unavailable [phone] Justen Gale MD Primary Care Provider Khris Arthur MD Unavailable [phone] Ko Melendez MD Unavailable John Paul Moyer MD Unavailable Annel Rod MD Unavailable Anali MARSHALL MD, Carlos M. Unavailable Encounter Details Date Type Department Care Team (Late st Contact Info) Description 06/20/2022 Orders Only [facility] Oncology [address] [facility] 7[address] [place] [address] [place] [address] Radha Mcgrath RN Malignant neoplasm [...] often do you attend chur ch or rastafarian services? 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 [address] [place] [address] Consulting Physician Pulmonary Disease 08/03/17 Khris Arthur MD [address] [facility] [address] [place] [address] Medical Oncologist/Microbiological Analyst Medical Oncology 10/23/[address] [place] [address] [facility] [address] [place] [address] Surgeon Orthopedic Surgery 10/23/17 [place] [address] [facility] [address] [place] [address] Consulting Physician Pain Management 10/23/[address] [place] [address] [facility] [address] [place] [address] Referring Physician General Surgery 01/26/18 [place] [address] [facility] [address] [place] [address] Consulting Physician Neurology 01/26/18 documented as of this encounter
--- OUTSIDE RECORDS SUMMARY | 2024-04-26 04:20 | XMS_ITS | Encounter Summary ---
Author Organization [facility] Address [address] [place] [address] Phone Care Team Providers Care Special Deputy Sheriff Name Role Phone Liu Jerez MD Unavailable Albert Corbin MD Unavailable Justen Gale MD Primary Care Provider Khris Arthur MD Unavailable [phone] Ko Melendez MD Unavailable John Paul Moyer MD Unavailable [phone] Annel Rod MD Unavailable Anali MARSHALL MD, Carlos M. Unavailable [phone] Encounter Details Date Type Department Care Team (Late st Contact Info) Description 05/27/2022 Orders Only [facility] Oncology [address] [facility] [address] [facility] 7th [place] [address] [place] [address] Radha Mcgrath RN Malignant neoplasm [...] often do you attend chur ch or restorationist services? Never 02/11/2022 Do you belong to [...] slept in a fci (including now)? 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 Gender Identity Not on file Sexual Orientation [...] mg total) by mouth nightly 90 tablet 05/27/2022 3 documented in this encounter Plan of [...] (25 mg total) by mouth nightly Reorder 03/10/2022 05/27/2022 documented as of this encounter Additional Health Concerns Infection Onset Date Last Indicated Resolved Time COVID: Recovered 02/10/2022 02/10/2022 06/10/2022 3:05 AM CADET DECK documented as of this encounter Care Teams Special Deputy Sheriff Relationship Specialty Start Date End Date Justen Gale MD 2 [facility] [address] [place] [address] PCP - General 10/09/17 Liu Jerez MD Consulting Physician Gastroenterology 07/28/17 [place] [address] [facility] [address] [place] [address] Consulting Physician Pulmonary Disease 08/03/17 Khris Arthur MD [address] [facility] [address] [place] [address] Medical Oncologist/Provider Engagement Executive Medical Oncology 10/23/17 [place] [address] [facility] [address] [place] [address] Surgeon Orthopedic Surgery 10/23/17 [place] [address] [facility] [address] [place] [address] Consulting Physician Pain Management 10/23/17 [place] [address] [facility] [address] [place] [address] Referring Physician General Surgery 01/26/18 [place] [address] [address] Consulting Physician Neurology 01/26/18 documented as of this encounter
--- OUTSIDE RECORDS SUMMARY | 2024-04-26 04:20 | XMS_ITS | Encounter Summary ---
Author Organization [facility] Healthcare Address [address] [place] [address] Care Team Providers Care Rejector Name Role Phone Liu Jerez MD Unavailable [phone] Albert Corbin MD Unavailable Justen Gale MD Primary Care Provider Khris Arthur MD Unavailable [phone] Ko Melendez MD Unavailable [phone] John Paul Moyer MD Unavailable [phone] Annel Rod MD Unavailable Anali MARSHALL MD, Carlos M. Unavailable [phone] Reason for Visit * Reason Comments Dizziness Nausea Headache visual difficulty Encounter Details Date Type Department Care Team (Late st Contact Info) Description 05/14/2022 9:31 AM AIRCRAFT INSTRUMENT TESTER - 05/14/2022 12:45 PM [facility] Emergency [facility] Emergency Department [address] [place] [id number] Dung Leung MD [facility] [facility] [address] [address] Dizziness (Primary Dx); Diabetes mellitus with coincident hypertension (HCC); Obstructive sleep apnea; Anticoagulated; History of breast cancer; Dehydration; Hyperglycemia; Obesity, unspecified classification, unspecified obesity type, unspecified whether serious comorbidity present Discharge Disposition: Discharge to home or self [...] week 02/11/2022 How often do you attend [facility] or [facility] services? Never 02/11/2022 Do you belong to any clubs o r organizations such as hindu groups, unions, fraternal or athletic groups, or [...] slept in a [facility] (including now)? 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 Female 12:24 AM AIRCRAFT INSTRUMENT TESTER Gender Identity Not on file Sexual Orientation Not on file documented as of this encounter Last Filed Vital Signs Vital Sign Reading Time Taken Comments Blood Pressure 145/89 05/14/2022 12:45 PM AIRCRAFT INSTRUMENT TESTER Pulse 85 05/14/2022 12:45 PM AIRCRAFT INSTRUMENT TESTER Temperature 36.9 ??C (98.5 ??F) 05/14/2022 12:[address] Respiratory Rate 20 05/14/2022 12:45 PM AIRCRAFT INSTRUMENT TESTER Oxygen Saturation 99% 05/14/2022 12:45 PM AIRCRAFT INSTRUMENT TESTER Inhaled Oxygen Concentration - - Weight 128.8 kg (284 lb) 05/14/2022 8:45 AM AIRCRAFT INSTRUMENT TESTER Height 154.9 cm (5' 1 ) 05/14/2022 8:45 AM AIRCRAFT INSTRUMENT TESTER Body Mass Index 53.66 05/14/2022 8:45 AM AIRCRAFT INSTRUMENT TESTER documented in this encounter Discharge Instructions * Discharge Instructions* Dung Leung MD - 05/14/2022 11:46 AM AIRCRAFT INSTRUMENT TESTER Push fluids keep hydrated keep an eye on your blood sugar blood pressure follow- up your doctor tighten up your diabetic regimen follow-up elective MRI of your brain as indicated take an aspirin dailycontinue all your medication return any problem concern RAFT INSTRUMENT TESTER * Attachments The following attachments cannot be sent through Care Everywhere. * Obesity (Wire Frame Lamp Shade Maker) (Belgian) * Dehydration (AfterCare(R) Instructions(ER/ED)) (Belgian) * Vertigo (Discharge Care) (Belgian) * Apnea Monitors (AfterCare(R) Instructions(ER/ED)) (Belgian) * Safe Use of Anticoagulants (AfterCare(R) Instructions(ER/ED)) (Belgian) documented in this encounter Medications at Time of Discharge albuterol HFA (PROVENTIL HFA,VENTOLIN HFA,PROAIR HFA) 90 mcg/actuation inhaler Inhale 2 puffs every 6 (six) hours as needed for wheezing or shortness of breath 1 BD Ultra-Fine Short Pen Needle 31 gauge x 5/16 needle USE 6 TIMES DAILY DIRECTED 2 blood glucose diagnostic (GoWarTouch Ultra Test) strip 4 (four) times a day 1 naloxone (NARCAN) 4 mg/actuation spray,non-aerosol 2 rOPINIRole (REQUIP) 5 mg tablet Take 1 [...] mg total) by mouth nightly 90 tablet 2 05/27/19 23 HYDROcodone-acetamin ophen (NORCO) 10-325 mg per tablet [...] total) by mouth daily 30 tablet 3 2 07/13/19 23 documented as of this encounter Discharge Disposition Disposition Code Departure Means Destination Discharge to home or self care documented in this encounter ED Notes * Dung Leung MD - 05/14/2022 10:01 AM CST HPI Chief Complaint Patient presents with ??? Dizziness ??? Nausea ??? Headache ??? visual difficulty History is noted in the triage for the last 4-5 days my vision has been funny fuzzy seeing spots Isee shadows squiggly lines with the headache in the front I been feeling dizzy with room spinning Ifeel off balance when I walk. I saw my doctor Justen dempsey 1 week ago for upper body weakness aches. Did some blood work I do not have the results history of breast cancer it was on the left but I elected to have bilateral mastectomy for the last day I have had this frontal headache. I have no fever I have no vomiting. History provided by: Patient Dizziness Quality: Head spinning and imbalance Severity: Moderate Onset quality: Gradual Duration: 5 days Timing: Intermittent Progression: Waxing and waning Chronicity: New Context: physical activity Context: not when bending over, not with ear pain, not with eye movement, not with head movement, not with loss of consciousness, not with medication, not when standing up, not when urinating and no head trauma Worsened by: Nothing Relieved by: Nothing Ineffective treatments: None tried Associated symptoms: headaches, nausea and vision changes Associated symptoms: no blood in stool, no chest pain, no diarrhea, no palpitations, no shortness of breath, no syncope, no vomiting and no weakness Headache Pain location: Frontal Quality: Dull Radiates to: Does not radiate Onset quality: Gradual Duration: 1 day Timing: Intermittent Progression: Waxing and waning Chronicity: New Similar to prior headaches: no Context: not activity, not exposure to bright light, not coughing, not eating, not stress and no recent head injury Worsened by: Nothing Relieved by: Nothing Ineffective treatments: None tried Associated symptoms: dizziness, nausea and visual change Associated symptoms: no abdominal pain, no back pain, no cough, no diarrhea, no ear pain, no eye pain, no fever, no seizures, no sore throat, no syncope, no vomiting and no weakness Dizziness: Severity: Moderate Duration: 5 days Timing: Intermittent Progression: Waxing and waning Visual Change: Location: Both eyes Quality: blurred vision Quality comment: Fuzzy spots shadows squiggly lines Onset quality: Gradual Severity: Moderate Duration: 5 days Timing: Intermittent Progression: Waxing and waning Chronicity: New Risk factors: hypertension Risk factors comment: Diabetes hypertension obstructive sleep apnea anticoagulated history DVT PE double mastectomy history left breast cancer Patient History: Patient Active Problem List Diagnosis Date Noted ??? Cystitis 02/09/2022 ??? Lab test positive for detection of COVID-19 virus 02/09/2022 ??? Chest pain 09/12/2021 ??? 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) 08/01/2021 ??? 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 Thyroid nodule 08/07/2018 ??? Dyslipidemia ??? History of breast cancer ??? Intractable pain ??? CVA (cerebral vascular accident) ([facility]) ([facility]) 01/24/2018 ??? Anxiety and depression 11/12/2017 ??? Uncontrolled type 2 diabetes mellitus with hyperglycemia, with long-term current use of insulin([facility]) 11/06/2017 ??? Allergy to drug 11/06/2017 ??? Dysuria 10/26/2017 ??? Acute left-sided low back pain with left-sided sciatica 10/23/2017 ??? Type 2 diabetes mellitus with neurologic complication, without long-term current use of insulin([facility]/HCC) ([facility]) 10/23/2017 ??? Hypertension 10/23/2017 ??? Long-term current use of opiate analgesic 10/23/2017 ??? Lumbosacral spondylosis without myelopathy 10/23/2017 ??? Radiculopathy, lumbosacral region 10/23/2017 ??? Spinal stenosis of lumbar region without neurogenic claudication 10/23/2017 ??? 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 ??? Type 2 diabetes mellitus without complication ([facility]/HCC) ([facility]) ??? Constipation ??? Malignant neoplasm of upper-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 ([facility]/HCC) (HCC) 10/17/2017 ??? Cancer of overlapping sites of left female breast (CMS/HCC) (HCC) 10/13/2017 ??? Chronic anticoagulation ??? Restless leg syndrome ??? Chest pressure 08/01/2017 ??? Positive blood culture 08/01/2017 ??? Hyponatremia 08/01/2017 ??? Diet-controlled diabetes mellitus (CMS/HCC) (HCC) 08/01/2017 ??? LUL (obstructive sleep apnea) 08/01/2017 ??? History of DVT (deep vein thrombosis) 08/01/2017 ??? History of pulmonary embolism 08/01/2017 ??? Essential hypertension ??? Generalized weakness 07/27/2017 ??? Dyspnea 07/27/2017 ??? Unintentional weight loss 07/27/2017 ??? Acute cystitis without hematuria 07/27/2017 ??? Nausea and vomiting 07/26/2017 ??? Pulmonary embolism (HCC) 08/09/2016 ??? Lymphedema of left upper extremity 08/09/2016 ??? Pain of foot 01/26/2015 ??? Arthralgia of ankle 01/26/2015 ??? Rash 11/11/2014 ??? Cellulitis of breast 11/11/2014 ??? Restless legs syndrome 03/12/2013 ??? Pain of lower extremity 03/12/2013 Past Medical History: Diagnosis Date ??? Adiposity obesity ??? Breast CA (CMS/HCC) (HCC) ??? Cancer (CMS/HCC) (HCC) breast ??? [...] OOPHORECTOMY ovary removed ??? OTHER SURGICAL HISTORY 2013 : Right Total Knee Replacement ??? OTHER SURGICAL HISTORY R ovary removed ??? US SOFT TISSUE ABSCESS DRAIN N/A [...] Never ??? Tobacco comments: remote tobacco use Vaping Use ??? Vaping Use: Never used Substance and Sexual Activity ??? Alcohol use: No ??? Drug use: None ??? Sexual activity: Defer Social History Social History Narrative ??? Not on file Review of Systems Review of Systems Constitutional: Negative for chills and fever. HENT: Negative for ear pain and sore throat. Eyes: Negative for pain and visual disturbance. Respiratory: Negative for cough and shortness of breath. Cardiovascular: Negative for chest pain, palpitations and syncope. Gastrointestinal: Positive for nausea. Negative for abdominal pain, blood in stool, diarrhea and vomiting. Genitourinary: Negative for dysuria and hematuria. Musculoskeletal: Negative for arthralgias and back pain. Skin: Negative for color change and rash. Neurological: Positive for dizziness and headaches. Negative for seizures, syncope and weakness. All other systems reviewed and are negative. Physical Exam ED Triage Vitals [05/14/22 0845] Temp Pulse Resp BP SpO2 36.8 ??C (98.2 ??F) 105 20 142/82 99 % Temp src Heart Rate Source Patient Position BP Location FiO2 (%) Oral -- -- -- -- Height Height Method Weight Weight Method 1.549 m (5' 1 ) Stated 128.8 kg (284 lb) Stated Physical Exam Vitals and nursing note reviewed. Constitutional: General: She is not in acute distress. Appearance: She is well-developed. She is not ill-appearing, toxic-appearing or diaphoretic. HENT: Head: Normocephalic and atraumatic. Eyes: General: Scleral icterus present. Conjunctiva/sclera: Conjunctivae normal. Neck: Thyroid: No thyroid mass. Vascular: No carotid bruit. Cardiovascular: Rate and Rhythm: Normal rate and regular rhythm. Pulses: Normal pulses. Heart sounds: No murmur heard. No gallop. Pulmonary: Effort: Pulmonary effort is normal. No tachypnea, accessory muscle usage, prolonged expiration, respiratory distress or retractions. Breath sounds: Normal breath sounds. No decreased breath sounds, wheezing, rhonchi or rales. Abdominal: Palpations: Abdomen is soft. Tenderness: There is no abdominal tenderness. There is no right CVA tenderness, left CVA tenderness, guarding or rebound. Musculoskeletal: General: No swelling. Cervical back: Neck supple. No crepitus. No pain with movement or spinous process tenderness. Right lower leg: No edema. Left lower leg: No edema. Skin: General: Skin is warm and dry. Capillary Refill: Capillary refill takes less than 2 seconds. Coloration: Skin is not ashen, cyanotic, jaundiced, mottled, pale or sallow. Neurological: General: No focal deficit present. Mental Status: She is alert. GCS: GCS eye subscore is 4. GCS verbal subscore is 5. GCS motor subscore is 6. Cranial Nerves: Cranial nerves 2-12 are intact. Sensory: Sensation is intact. Motor: Motor function is intact. Psychiatric: Attention and Perception: Attention normal. Mood and Affect: Mood is depressed. Speech: Speech normal. Behavior: Behavior normal. Thought Content: Thought content normal. Cognition and Memory: Cognition normal. MDM Medical Decision Making Multiple nonspecific complaints, Dizzy blurred vision vague headache history diabetes hypertension anticoagulated rule out TIA CVA subarachnoid hemorrhage subdural hematoma epidural hematoma Meniere's disease kidney failure acute coronary syndrome worsening obstructive sleep apnea check lab CT Amount and/or Complexity of Data Reviewed Labs: ordered. ECG/medicine tests: independent interpretation performed. ED Course as of 05/14/22 1146 Time: 05/14 1011 Comment: The LV function normal preserved ejection fraction hyperglycemia without DKA normal anion gap By: Dung Leung MD Time: 05/14 1015 Comment: CT brain negative in 2021 for similar complaints of dizziness By: Dung Leung MD Time: 05/14 1139 Comment: Workup negative no UTI nonspecific mild leukocytosis hyperglycemia without DKA mild elevated BUN suspect underlying dehydration azotemia cardiac workup negative By: Dung Leung MD Time: 05/14 1140 Comment: Patient feeling better with IV fluid suspect dehydration mild hyperglycemia azotemia similar complaint from last year negative CT By: Dung Leung MD Final diagnoses: Dizziness Diabetes mellitus with coincident hypertension (HCC) Obstructive sleep apnea Anticoagulated - History DVT PE History of breast cancer - Double mastectomy Dehydration - Azotemia Hyperglycemia Obesity, unspecified classification, unspecified obesity type, unspecified whether serious comorbidity present Dung Leung MD 05/14/22 1009 Dung Leung MD 05/14/22 6027 RAFT INSTRUMENT TESTER RAFT INSTRUMENT TESTER * Tammy Ayala RN - 05/14/2022 9:55 AM CST Pt reports 4 days hx of dizziness, room spinning, visual disturbance, and nausea, CAZARES started yesterday, pt axox4, skin pwd, Tammy Ayala RN 05/14/22 0956 RAFT INSTRUMENT TESTER * Kathryn Santana RN - 05/14/2022 8:42 AM CST Pt reports she has been on a new medication for overactive bladder for the past two weeks and stopped taking it 3 days ago. States the past 4 days she has had a headache, seeing spots & vision is fuzzy . Also states she is dizzy and room is spinning. Hx of htn, dm and is on Xarelto. RAFT INSTRUMENT TESTER documented in this encounter Miscellaneous Notes * ED Procedure Note - Dung Leung MD - 05/14/2022 10:16 AM AIRCRAFT INSTRUMENT TESTER Associated Order(s): ECG 12 lead Procedure ECG 12 lead Date/Time: 05/14/2022 10:16 AM Performed by: Dung Leung MD Authorized by: Alicia Murary PA Rate: ECG rate assessment: normal Rhythm: Rhythm: sinus rhythm Ectopy: Ectopy: PAC QRS: QRS axis: Normal QRS intervals: Normal Conduction: Conduction: normal ST segments: ST segments: Normal T waves: T waves: non-specific Dung Leung MD 05/14/22 1017 RAFT INSTRUMENT TESTER documented in this encounter Plan of Treatment Not on file documented as of this encounter Procedures Procedure Name Priority Date/Time Associated Diagnosis Comments TROPONIN T HIGH-SENSITIVITY 2-HOUR Timed 05/14/2022 10:38 AM AIRCRAFT INSTRUMENT TESTER ECG 12-LEAD STAT 05/14/2022 10:12 [address] [employer]FT IN[employer] [address] CT HEAD WO CONTRAST ED 05/14/2022 9 :57 AM AIRCRAFT INSTRUMENT TESTER INFLUENZA A/B, RSV, AND COVID-19 PCR Routine 05/14/2022 9:54 AM AIRCRAFT INSTRUMENT TESTER URINALYSIS AND REFLEX TO MICROSCOPIC AND CULTURE STAT 05/14/2022 9:06 AM AIRCRAFT INSTRUMENT TESTER URINALYSIS, MICROSCOPIC ONLY STAT 05/14/2022 9:06 AM AIRCRAFT INSTRUMENT TESTER TROPONIN T HIGH-SENSITIVITY SERIES (BASELINE, 2HR, 4HR, 6HR) STAT 05/14/2022 8:52 AM AIRCRAFT INSTRUMENT TESTER EGFR STAT 05/14/2022 8:52 AM AIRCRAFT INSTRUMENT TESTER DIFFERENTIAL AUTO STAT 05/14/2022 8:5 2 AM AIRCRAFT INSTRUMENT TESTER CBC WITH AUTO DIFFERENTIAL STAT 05/14/2022 8:52 AM AIRCRAFT INSTRUMENT TESTER APTT STAT 05/14/2022 8:52 AM AIRCRAFT INSTRUMENT TESTER PROTIME-INR STAT 05/14/2022 8:52 AM AIRCRAFT INSTRUMENT TESTER COMPREHENSIVE METABOLIC PANEL STAT 05/14/2022 8:52 AM AIRCRAFT INSTRUMENT TESTER POCT GLUCOSE DEVICE Routine 05/14/2022 8 :41 AM AIRCRAFT INSTRUMENT TESTER documented in this encounter Results * (ABNORMAL) Troponin T high-sensitivity 2-hour (05/14/2022 10:38 AM AIRCRAFT INSTRUMENT TESTER) Pathologist [facility] Trop T hs 20(H) <=14 ng/L MARY JANE PHAM Comment: Interpretive Data For further hscTnT resources including the diagnostic algorithm and an aid in interpretation, copy and paste this link: [email or web address].testcatalog.org/show/[email or web address] Current Interpretive Data last revised 2020. Testing performed by: [facility], [address] [place] [address]., [id number] Trop T hs delta -4 ng/L MARY JANE PHAM Comment:Testing performed by : [facility], [address] [place] [address]., [id number] Trop T hs interp Insignificant MARY JANE Comment:Testing performed by : [address] [address] Blood 05/14/2022 10:3 8 AM AIRCRAFT INSTRUMENT TESTER 05/14/2022 10:48 AM AIRCRAFT INSTRUMENT TESTER us Dung Leung MD LAB BLOOD ORDERABLES Final Result MARY JANE [address] [facility] Department of Laboratories [place], [place] [id number] * ECG 12 lead (05/14/2022 10:12 AM AIRCRAFT INSTRUMENT TESTER) [facility] Ventricular Rate EKG/Min 99 BPM [facility] Atrial Rate 99 BPM [facility] VT-Interval (MSEC) 126 ms [facility] QRS-Interval (MSEC) 90 ms [facility] QT-Interval (MSEC) 358 ms [facility] QTc 459 ms [facility] P [place] 51 degrees [facility] R [place] 1 degrees [facility] T [place] 67 degrees [facility] Diagnosis Sinus rhythm with Premature atrial complexes Possible Left atrial enlargement Nonspecific T wave abnormality Abnormal ECG When compared with ECG of 04-APR-2022 19:30, Premature atrial complexes are now Present [facility] 05/14/2022 10:1 2 AM AIRCRAFT INSTRUMENT TESTER 05/14/2022 2:50 PM AIRCRAFT INSTRUMENT TESTER us Alicia MCKEON ECG ORDERABLES Final Res ult [facility] * CT Head WO Contrast (05/14/2022 9:57 AM AIRCRAFT INSTRUMENT TESTER) Anatomical Region Laterality Modality Head and Neck N/A Computed Tomogra phy 05/14/2022 10:3 0 AM AIRCRAFT INSTRUMENT TESTER Narrative 05/14/2022 10:34 AM AIRCRAFT INSTRUMENT TESTER EXAM DESCRIPTION: ?? CT HEAD WO CONTRAST REASON FOR STUDY: ?? Dizziness, persistent/recurrent, cardiac or vascular cause suspected, Headache, chronic, new features or increased frequency ?? been on a new medication for overactive bladder for the past two weeks and stopped taking it 3 days ago. States the past 4 days she has had a headache, seeing spots is fuzzy . Also states she is dizzy and room is spinning. Hx of htn, dm and ?? is on Xarelto. ? TECHNIQUE: Axial images acquired through the brain without intravenous contrast. ??Images stored on PACS. ?? Automated exposure control was used as a dose optimization technique for this examination. COMPARISON: ?? 01/28/2022 FINDINGS: BRAIN: ?? No hemorrhage, edema or mass effect. No recent infarct. ? The carney-white matter differentiation is normal. ??Normal size and morphology of the ventricular system. ??No acute intraventricular hemorrhage. ??Basal cisterns are patent. ? EXTRA-AXIAL SPACES: ?? No fluid collections. No masses. CALVARIUM: ?? No fracture. SINUSES/MASTOIDS: ?? No fluid or mucosal thickening. ORBITS: ?? No significant abnormality. OTHER: ?? No other significant abnormality. IMPRESSION: 1. ?? No acute intracranial findings. THIS IS AN ELECTRONICALLY VERIFIED FINAL REPORT 05/14/2022 10:34 AM - Electronically signed by ??Juan R Johnson M.D. AT: AT D: ??05/14/2022 10:34 AM T: ??05/14/2022 10:34 AM Report ID: [id number] Reading Location: ??[id number] Procedure Note Juan R Johnson MD - 05/14/2022 EXAM DESCRIPTION: CT HEAD WO CONTRAST REASON FOR STUDY: Dizziness, persistent/recurrent, cardiac or vascularcause suspected, Headache, chronic, new features or increased frequency been on a new medication for overactive bladder for the past two weeks and stopped taking it 3 days ago. States the past 4 days she has had aheadache, seeing spots is fuzzy . Also states she is dizzy and room is spinning.Hx of htn, dm and is on Xarelto. TECHNIQUE: Axial images acquired through the brain without intravenous contrast. Images stored on PACS. Automated exposure control was used asa dose optimization technique for this examination. COMPARISON: 01/28/2022 FINDINGS: BRAIN: No hemorrhage, edema or mass effect. No recent infarct. The carney-white matter differentiation is normal. Normal size andmorphology of the ventricular system. No acute intraventricular hemorrhage. Basal cisterns are patent. EXTRA-AXIAL SPACES: No fluid collections. No masses. CALVARIUM: No fracture. SINUSES/MASTOIDS: No fluid or mucosal thickening. ORBITS: No significant abnormality. OTHER: No other significant abnormality. IMPRESSION: 1. No acute intracranial findings. THIS IS AN ELECTRONICALLY VERIFIED FINAL REPORT 05/14/2022 10:34 AM - Electronically signed by Juan R Johnson M.D. AT: AT Report ID: [id number] Reading Location: [id number] Alicia MCKEON IMG CT PROCEDURES Final R esult * Influenza A/B, RSV, and COVID-19 PCR Nasopharyngeal (05/14/2022 9:54 AM AIRCRAFT INSTRUMENT TESTER) COVID-19 RNA Negative Negative MARY JANE PHAM Comment:Testing performed by : [address] [address] Influenza A RNA Negative Negative MARY JANE Comment:Testing performed by : [address] [address] Influenza B RNA Negative Negative MARY JANE PHAM Comment:Testing performed by : [address] [address] RSV RNA Negative Negative MARY JANE Comment: Interpretive data: This test is performed using the [employer] Xpert Xpress CoV-2/Flu/RSV plus assay. This is [...] Data last revised 2021. Testing performed by: [address] [address] Nasopharyngeal 05/14/2022 9: 54 AM AIRCRAFT INSTRUMENT TESTER 05/14/2022 10:01 AM AIRCRAFT INSTRUMENT TESTER Narrative MARY JANE - 05/14/2022 10:40 AM AIRCRAFT INSTRUMENT TESTER Is the Patient experiencing symptoms consistent with COVID?->Yes Date of Symptom Onset->05/12/22 Reason for testing?->Symptomatic us Alicia MCKEON LAB MICROBIOLOGY - GENERA L ORDERABLES Final Result MARY JANE [address] [facility] Department [place] [address] * Urinalysis, microscopic only (05/14/2022 9:06 AM AIRCRAFT INSTRUMENT TESTER) WBC, ur 0-5 0 - 5 /HPF MARY JANE Comment:Testing performed by : [address] [address] RBC, ur 0-2 0 - 2 /HPF MARY JANE Comment:Testing performed by : [address] [address] Epithelial cells, squamous, ur 1-5 0 - 5 /HPF MARY JANE Comment:Testing performed by : [address] [address] Culture Reflex Comment Reflex conditions for urine culture (WBC >10) not met. MARY JANE Comment:Testing performed by : [address] [address] Urine, clean voided 05/14/2022 9:06 AM AIRCRAFT INSTRUMENT TESTER 05/14/2022 9:11 AM AIRCRAFT INSTRUMENT TESTER Dung Leung MD LAB URINE ORDERABLES Final Result MARY JANE [address] [facility] Department [place] [address] * (ABNORMAL) Urinalysis reflex to microscopic and culture Urine, clean voided (05/14/2022 9:06 AM AIRCRAFT INSTRUMENT TESTER) Color, ur Yellow Yellow MARY JANE Comment:Testing performed by : [address] [address] Clarity, ur Clear Clear MARY JANE Comment:Testing performed by : [address] [address] Specific gravity, ur 1.025 1.003 - 1.030 MARY JANE Comment:Testing performed by : [address] [address] pH, urine 5.5 MARY JANE Comment:Testing performed by : [address] [address] Protein, ur ql Negative Negative MARY JANE Comment:Testing performed by : [address] [address] Glucose, ur ql 2+(A) Negative MARY JANE Comment:Testing performed by : [address] [address] Ketones, ur Negative Negative MARY JANE Comment:Testing performed by : [address] [address] Bilirubin, ur Negative Negative MARY JANE Comment:Testing performed by : [address] [address] Blood, ur 1+(A) Negative MARY JANE Comment:Testing performed by : [address] [address] Urobilinogen, ur 0.2 <2.0 mg/dL MARY JANE Comment:Testing performed by : [facility], [address] [place] [address]., [address] Nitrite, ur Negative Negative MARY JANE Comment:Testing performed by : [address] [address] Leukocyte esterase, ur Negative Negative MARY JANE Comment:Testing performed by : [address] [address] UA reflex comment Reflex to microscopic UA will be performed. MARY JANE Comment:Testing performed by : [facility], [address] [place] [address]., [address] Urine, clean voided 05/14/2022 9:06 AM [employer]CRAFT INSTRUMENT TESTER 05/14/2022 9:11 AM AIRCRAFT INSTRUMENT TESTER Narrative MARY JANE - 05/14/2022 9:48 AM AIRCRAFT INSTRUMENT TESTER ?? Urine pH is affected by diet, medications, systemic acid-base disturbances, and renal tubular function. ??pH may affect urinary stone formation. ??For example, urine pH below 6.0 may help reduce the tendency for calcium phosphate stones and pH greater than 6.0 may reduce the tendency for uric acid stone formation. Source: [facility] [employer] Last revised 05-04-2017 Dung Leung MD LAB MICROBIOLOGY - NERLA ORDERABLES Final Result MARY JANE [address] [facility] Department [place] [address] * eGFR (05/14/2022 8:52 AM AIRCRAFT INSTRUMENT TESTER) eGFR 96 mL/min/1. 73 m2 MARY JANE Comment: Interpretive Data Reference Interval Normal ?>/= [...] was last reviewed 2021. Testing performed by: [address] [address] Blood 05/14/2022 8:52 AM AIRCRAFT INSTRUMENT TESTER 05/14/2022 8:57 AM AIRCRAFT INSTRUMENT TESTER Dung Leung MD LAB BLOOD ORDERABLES Final Result [facility] [address] [facility] Department [place] [address] * (ABNORMAL) Differential, auto (05/14/2022 8:52 AM AIRCRAFT INSTRUMENT TESTER) Neutrophil abs 10.0(H) 1.7 - 6.5 K/cumm MARY JANE Comment:Testing performed by : [address] [address] Imm gran abs 0.1 0.0 - 0.1 K/cumm MARY JANE Comment:Testing performed by : [address] [address] Lymphocyte abs 2.6 0.8 - 3.3 K/cumm MARY JANE Comment:Testing performed by : [address] [address] Monocyte abs 1.0(H) 0.2 - 0.8 K/cumm MARY JANE Comment:Testing performed by : [address] [address] Eosinophil abs 0.0 0.0 - 0.5 K/cumm [facility] Comment:Testing performed by : [address] [address] Basophil abs 0.0 0.0 - 0.1 K/cumm [facility] Comment:Testing performed by : [address] [address] Neutrophil pct 73.1 % [facility] Comment: Interpretive Data Percent cell count reference ranges are not reported, since discordance with absolute values may lead to misinterpretation of CBC data. Current Interpretive Data was last revised on 2017. Testing performed by: [address] [address] Imm gran pct 0.6 % [facility] Comment: Interpretive Data Percent cell count reference ranges are not reported, since discordance with absolute values may lead to misinterpretation of CBC data. Current Interpretive Data was last revised on 2017. Testing performed by: [address] [address] Lymphocyte pct 19.0 % [facility] Comment: Interpretive Data Percent cell count reference ranges are not reported, since discordance with absolute values may lead to misinterpretation of CBC data. Current Interpretive Data was last revised on 2017. Testing performed by: [address] [address] Monocyte pct 7.0 % [facility] Comment: Interpretive Data Percent cell count reference ranges are not reported, since discordance with absolute values may lead to misinterpretation of CBC data. Current Interpretive Data was last revised on 2017. Testing performed by: [address] [address] Eosinophil pct 0.1 % [facility] Comment: Interpretive Data Percent cell count reference ranges are not reported, since discordance with absolute values may lead to misinterpretation of CBC data. Current Interpretive Data was last revised on 2017. Testing performed by: [address] [address] Basophil pct 0.2 % [facility] Comment: Interpretive Data Percent cell count reference ranges are not reported, since discordance with absolute values may lead to misinterpretation of CBC data. Current Interpretive Data was last revised on 2017. Testing performed by: [address] [address] Blood 05/14/2022 8:52 AM AIRCRAFT INSTRUMENT TESTER 05/14/2022 8:57 AM AIRCRAFT INSTRUMENT TESTER Dung Leung MD LAB BLOOD ORDERABLES Final Result [facility] [address] [facility] Department [place] [address] * (ABNORMAL) Comprehensive metabolic panel (05/14/2022 8:52 AM AIRCRAFT INSTRUMENT TESTER) Sodium 133(L) 135 - 145 mmol/L MARY JANE Comment:Testing performed by : [address] [address] Potassium, pl 4.2 3.3 - 4.9 mmol/L MARY JANE Comment:Testing performed by : [address] [address] Chloride 98 97 - 110 mmol/L MARY JANE Comment:Testing performed by : [address] [address] CO2 24 22 - 32 mmol/L MARY JANE Comment:Testing performed by : [address] [address] Anion gap 11 2 - 15 mmol/L MARY JANE Comment:Testing performed by : [address] [address] BUN 27(H) 8 - 25 mg/dL MARY JANE Comment:Testing performed by : [address] [address] Creatinine 0.70 0.60 - 1.10 mg/dL MARY JANE Comment:Testing performed by : [address] [address] Glucose 353(H) 70 - 199 mg/dL MARY JANE Comment: [...] was last revised 2022. Testing performed by: [address] [address] Calcium 9.7 8.5 - 10.3 mg/dL MARY JANE Comment:Testing performed by : [address] [address] Bilirubin, total 0.5 0.1 - 1.2 mg/dL MARY JANE Comment:Testing performed by : [address] [address] Protein, pl 8.1 6.5 - 8.5 g/dL MARY JANE Comment:Testing performed by : [address] [address] Albumin 4.1 3.5 - 5.0 g/dL MARY JANE Comment:Testing performed by : [address] [address] Alk phos 98 40 - 130 Units/L MARY JANE Comment:Testing performed by : [address] [address] ALT 21 7 - 45 Units/L MARY JANE Comment:Testing performed by : [address] [address] AST 20 10 - 45 Units/L MARY JANE Comment:Testing performed by : [address] [address] Blood 05/14/2022 8:52 AM AIRCRAFT INSTRUMENT TESTER 05/14/2022 8:57 AM AIRCRAFT INSTRUMENT TESTER us Dung Leung MD LAB BLOOD ORDERABLES Final Result MARY JANE [address] [facility] Department [place] [address] * (ABNORMAL) CBC with auto differential (05/14/2022 8:52 AM AIRCRAFT INSTRUMENT TESTER) [facility] WBC 13.7(H) 3.8 - 9.9 K/cumm MARY JANE Comment:Testing performed by : [address], [address] Hgb 13.9 11.9 - 15.5 g/dL MARY JANE Comment:Testing performed by : [address], [address] Hct 42.0 35.6 - 45.5 % MARY JANE Comment:Testing performed by : [address], [address] Plt 343 150 - 400 K/cumm MARY JANE Comment:Testing performed by : [address], [address] MPV 9.9 9.1 - 12.3 fL MARY JANE Comment:Testing performed by : [address], [address] RBC 4.83 3.90 - 5.20 M/cumm MARY JANE Comment:Testing performed by : [address], [address] MCV 87.0 81.3 - 96.4 fL MARY JANE Comment:Testing performed by : [address] [address] MCH 28.8 27.1 - 33.3 pg MARY JANE Comment:Testing performed by : [address], [address] MCHC 33.1 32.3 - 35.7 g/dL MARY JANE Comment:Testing performed by : [address], [address] RDW CV 13.6 11.1 - 14.9 % MARY JANE Comment:Testing performed by : [address], [address] RDW SD 43.3 35.7 - 48.1 fL MARY JANE Comment:Testing performed by : [address], [address] NRBC abs 0.00 0.00 - 0.01 K/cumm MARY JANE Comment:Testing performed by : [facility], [address] [place] [address]., [address] Blood 05/14/2022 8:52 AM AIRCRAFT INSTRUMENT TESTER 05/14/2022 8:57 AM AIRCRAFT INSTRUMENT TESTER Dung Leung MD LAB BLOOD ORDERABLES Final Result Performing Organization Address City/[facility] Co de Phone Number MARY JANE [address] [facility] Department [place] [address] * (ABNORMAL) Troponin T high-sensitivity series (baseline, 2hr, 4hr, 6hr) (05/14/2022 8:52 AM AIRCRAFT INSTRUMENT TESTER) Trop T hs 24(H) <=14 ng/L MARY JANE Comment: Interpretive Data For further hscTnT resources including the diagnostic algorithm and an aid in interpretation, copy and paste this link: https://nrl.testcatalog.org/show/hsTrop Current Interpretive Data last revised 2020. Testing performed by: [address] [address] Blood 05/14/2022 8:52 AM AIRCRAFT INSTRUMENT TESTER 05/14/2022 8:57 AM AIRCRAFT INSTRUMENT TESTER Dung Leung MD LAB BLOOD ORDERABLES Final Result Performing Organization Address City/[facility] Co de Phone Number MARY JANE [address] [facility] Department [place] [address] * aPTT (05/14/2022 8:52 AM AIRCRAFT INSTRUMENT TESTER) aPTT 35 22 - 37 sec MARY JANE Comment: Interpretive data aPTT test has not been evaluated for monitoring heparin therapy. The anti-Xa is the preferred test. Current interpretive data was last revised on 2019. Testing performed by: [address] [address] Blood 05/14/2022 8:52 AM AIRCRAFT INSTRUMENT TESTER 05/14/2022 8:57 AM AIRCRAFT INSTRUMENT TESTER us Dung Leung MD LAB BLOOD ORDERABLES Final Result Performing Organization Address City/[facility] Co de Phone Number MARY JANE [address] [place] [address] * (ABNORMAL) Protime-INR (05/14/2022 8:52 AM AIRCRAFT INSTRUMENT TESTER) PT 22.2(H) 12.0 - 14.6 sec MARY JANE Comment: Ref Range High Testing performed by: [address] [address] INR 2.0(H) 0.9 - 1.2 MARY JANE Comment: Ref Range High Interpretive data Oral anticoagulant therapeutic ranges: Venous thromboembolism prophylaxis or treatment: 2.0-3.0 CARDIOLOGY Standard range: 2.0-3.0 High-intensity range: 2.5-3.5 Refer to indication-specific guidelines for appropriate target ranges for prosthetic heart valve replacement. Current interpretive data was last revised on 2019. Testing performed by: [address] [address] Blood 05/14/2022 8:52 AM AIRCRAFT INSTRUMENT TESTER 05/14/2022 8:57 AM AIRCRAFT INSTRUMENT TESTER us Dung Leung MD LAB BLOOD ORDERABLES Final Result Performing Organization Address [place]/[facility] Co de Phone Number MARY JANE [address] [place] [address] * (ABNORMAL) POCT glucose (05/14/2022 8:41 AM AIRCRAFT INSTRUMENT TESTER) Glucose, POC 334(H) 70 - 199 mg/dL MARY JANE Comment:Testing performed by : [address] [address] Glucose comment 1 Use This Result MARY JANE Comment:Testing performed by : [address] [address] Blood 05/14/2022 8:41 AM AIRCRAFT INSTRUMENT TESTER 05/14/2022 8:41 AM AIRCRAFT INSTRUMENT TESTER us Notinfile Unknown LAB POCT ORDERABLES - DEVICE F inal Result MARY JANE MH [address] [facility] Department [place] [address] documented in this encounter Visit Diagnoses Diagnosis Dizziness- Primary Dizziness and giddiness Diabetes mellitus with coincident hypertension (HCC) Obstructive sleep apnea Obstructive sleep apnea (adult) (pediatric) Anticoagulated Encounter for long-term (current) use of anticoagulants History of breast cancer Personal history of malignant neoplasm of breast Dehydration Hyperglycemia Other abnormal glucose Obesity, unspecified classification, unspecified obesity type, unspecified whether serious comorbidity present documented in this encounter Administered Medications Inactive Administered Medications - up to 3 most recent administrations Medication Order MAR Action Action Date Dose Rate Site ondansetron (ZOFRAN) injection 4 mg 4 mg, intravenous, Administer over 2 Minutes, Once, On 05/14/22 at 1150, For 1 dose Given 05/14/2022 11:53 AM AIRCRAFT INSTRUMENT TESTER 4 mg sodium chloride 0.9% bolus 1,000 mL 1,000 mL, intravenous, at 1,000 mL/hr, Administer over 1 Hours, Once, On 05/14/22 at 1011, For 1 dose New Bag 05/14/2022 10:23 AM AIRCRAFT INSTRUMENT TESTER 1,000 mL 1000 mL/hr documented in this encounter Active and Recently Administered Medications Times are shown in AIR[employer]FT INSTRUMENT TESTER. Scheduled Medication Order 05/12/2022 05/13/2022 05/14/2022 ondansetron (ZOFRAN) injection 4 mg (COMPLETED) 4 mg, intravenous, Administer over 2 Minutes, Once, On 05/14/22 at 1150, For 1 dose 1153 (Given - Provid er: David Story RN) sodium chloride 0.9% bolus 1,000 mL (COMPLETED) 1,000 mL, intravenous, at 1,000 mL/hr, Administer over 1 Hours, Once, On 05/14/22 at 1011, For 1 dose 1023 (New Bag - Prov ider: Tammy Ayala RN)1123 (Stopped - Provider: David Story RN) documented in this encounter Orders Nursing Count Last Ordered Date First Orde red Date MISCELLANEOUS NURSING CARE ORDER (SPECIFY) 1 05/14/2022 documented in this encounter Additional Health Concerns Infection Onset Date Last Indicated Resolved Time COVID: Recovered 02/10/2022 02/10/2022 06/10/2022 3:05 AM [employer]FT INSTRUMENT TESTER COVID: Suspected 05/14/2022 05/14/2022 05/14/2022 10:41 AM AIRCRAFT INSTRUMENT TESTER documented as of this encounter Care Teams Rejector Relationship Specialty Start Date End Date Justen Gale MD [address] [address] PCP - General 10/09/17 Liu Jerez MD Consulting Physician Gastroenterology 07/28/17 [place] [address] [address] [facility] [id number] [place] [address] Consulting Physician Pulmonary Disease 08/03/17 [place] [address] [place] [address] [place] [address] Medical Oncologist/Non Destructive Tester Medical Oncology 10/23/17 [place] [address] [facility] [address] [place] [address] Surgeon Orthopedic Surgery 10/23/17 [place] [address] [facility] [address] [place] [address] Consulting Physician Pain Management 10/23/17 [place] [address] [facility] [address] [place] [address] Referring Physician General Surgery 01/26/18 [place] [address] [facility] [address], [place] [address] Consulting Physician Neurology 01/26/18 documented as of this encounter
--- OUTSIDE RECORDS SUMMARY | 2024-04-26 04:20 | XMS_ITS | Encounter Summary ---
Author Organization [facility] Healthcare Address [address] [place] [address] Care Team Providers Care Pit Clerk Name Role Phone Liu Jerez MD Unavailable Albert Corbin MD Unavailable Justen Gale MD Primary Care Provider Khris Arthur MD Unavailable [phone] Ko Melendez MD Unavailable John Paul Moyer MD Unavailable Annel Rod MD Unavailable Anali MARSHALL MD, Carlos M. Unavailable Reason for Visit * Reason Comments Allergic Reaction Encounter Details Date Type Department Care Team (Late st Contact Info) Description 03/08/2022 1:38 PM INSOLE REINFORCER - 03/08/2022 5:17 PM [facility] Emergency [facility] Emergency Department [address] [place] [id number] Allergic reaction to drug, initial encounter (Primary Dx) Discharge Disposition: Discharge to home [...] often do you attend chur ch or anglican services? Never 02/11/2022 Do you belong to [...] on file Legal Sex Female 12:24 AM INSOLE REINFORCER Gender Identity Not on file Sexual Orientation Not on file documented as of this encounter Last Filed Vital Signs Vital Sign Reading Time Taken Comments Blood Pressure 156/97 03/08/2022 5:07 PM INSOLE REINFORCER Pulse 76 03/08/2022 5:07 PM INSOLE REINFORCER Temperature 36.7 ??C (98 ??F) 03/08/2022 5:07 PM INSOLE REINFORCER Respiratory Rate 20 03/08/2022 5:07 PM INSOLE REINFORCER Oxygen Saturation 95% 03/08/2022 5:07 PM INSOLE REINFORCER Inhaled Oxygen Concentration - - Weight 130.2 kg (287 lb) 03/08/2022 12:14 PM INSOLE REINFORCER Height 154.9 cm (5' 1 ) 03/08/2022 12:14 PM INSOLE REINFORCER Body Mass Index 54.23 03/08/2022 12:14 PM INSOLE REINFORCER documented in this encounter Discharge Instructions * Discharge Instructions* Lila Villagran PA - 03/08/2022 5:04 PM INSOLE REINFORCER Do not take Bactrim again until you talk with your urologist to discuss continuing this medication with side effects. You can take Zofran as prescribed for relief of nausea and vomiting. Return immediately if you develop new or worsening symptoms. Follow-up with your primary care provider if neededfor further evaluation. Follow-up as recommended is mandatory. You have received emergency care only at your visit today. This is not a substitute for ongoing care, further evaluation and treatment and therefore follow-up as directed is not optional but mandatory You MUST follow up for further evaluation of all incidental abnormal radiographic and laboratory findings, Have your physician obtain records from this visit and address all the incidental abnormal findings. This may include final results of lab testing, cultures, final x-ray reports which may not have been available during the time of the visit. Return immediately for any new symptoms, worsening of symptoms, or persistent symptoms LE REINFORCER documented in this encounter Medications at Time of Discharge albuterol HFA (PROVENTIL HFA,VENTOLIN HFA,PROAIR HFA) 90 mcg/actuation inhaler Inhale 2 puffs every 6 (six) hours as needed for wheezing or shortness of breath 1 BD Ultra-Fine Short Pen Needle 31 gauge x 5/16 needle USE 6 TIMES DAILY DIRECTED 2 blood glucose diagnostic (YouBeautyTouch Ultra Test) strip 4 (four) times a day 1 naloxone (NARCAN) 4 mg/actuation spray,non-aerosol 2 rOPINIRole (REQUIP) 5 mg tablet Take 1 tablet (5 mg total) by mouth nightly Taken at 2100 nitrofurantoin monohydrate (MACROBID) 100 mg capsule Take 1 capsule (100 mg total) by mouth 2 (two) times a day for 14 days 28 capsule 2 03/13/20 22 amitriptyline (ELAVIL) 25 mg tablet Take 25 [...] total) by mouth nightly 90 tablet 2 03/10/20 22 HYDROcodone-acetamin ophen (NORCO) 10-325 mg per tablet [...] for dizziness 30 tablet 2 01/27/20 23 mupirocin (BACTROBAN) 2 % ointment mupirocin 2 % topical ointment 01/27/20 23 nystatin powder Apply 1 application topically daily 2 01/27/20 23 ondansetron (ZOFRAN) 4 mg tablet Take 1 tablet (4 mg total) by mouth every 6 (six) hours 12 tablet 2 01/27/20 23 oxybutynin (DITROPAN) 5 [...] 07/13/19 23 documented as of this encounter Ordered Prescriptions Prescription Sig Dispense Quantity Refills Last Filled Start Date End Date ondansetron (ZOFRAN) 4 mg tablet Take 1 tablet (4 mg total) by mouth every 6 (six) hours 12 tablet 03/08/2022 01/26/2023 documented in this encounter Discharge Disposition Disposition Code Departure Means Destination Discharge to home or self care documented in this encounter ED Notes * Lila Villagran PA - 03/08/2022 4:40 PM CST HPI Chief Complaint Patient presents with Allergic Reaction HPI 4:40 PM Karly Marques is a 66 y.o. female presenting to the ED c/o allergic reaction to antibiotics that she was started on for a urinary tract infection. Patient states she was seen here in the emergency department on 02/27 and started on Bactrim for a UTI, states she has had a recurrent UTI since August of this year. Has many significant allergies. Due to this, she was started on Bactrim but was instructed to take Benadryl with this. She has recently seen her urologist and primary care provider since being this medication. States last night she started having some shortness of breath and nausea with this, denies any vomiting. Patient states she does have history of CHF but is on any medica tion for this at this time. When she talked with her urologist on 03/01, she was instructed to continue antibiotic with Benadryl for urinary tract infection. Patient History: Past Medical History: Diagnosis Date Adiposity obesity Breast CA (CMS/HCC) (HCC) Cancer (CMS/HCC) (HCC) breast CHF (congestive heart failure) (CMS/HCC) (HCC) Depression Depression Diabetes (HCC) Disorder of thyroid Thyroid disease DVT (deep venous thrombosis) (CMS/HCC) (HCC) HX OTHER MEDICAL restless leg syndrome HX OTHER MEDICAL RLS Hypertension Hypertension Osteoarthritis osteoarthritis PE (pulmonary thromboembolism) (CMS/HCC) ([facility]) Sleep apnea Past Surgical History: Procedure [...] gauge x 5/16 needle blood glucose diagnostic (YouBeautyTouch Ultra Test) strip exemestane (AROMASIN) 25 mg tablet HYDROcodone-acetaminophen (NORCO) 7.5-325 mg per tablet insulin glargine (LANTUS) 100 unit/mL injection insulin lispro (HumaLOG) 100 unit/mL injection lidocaine viscous (XYLOCAINE) 2 % solution meclizine (ANTIVERT) 25 mg tablet mupirocin (BACTROBAN) 2 % ointment naloxone (NARCAN) 4 mg/actuation spray,non-aerosol nitrofurantoin monohydrate (MACROBID) 100 mg capsule nystatin powder ondansetron (ZOFRAN) 4 mg tablet oxybutynin (DITROPAN) [address] (PROTONIX) 40 mg EC tablet rivaroxaban (Xarelto) 20 mg tablet rOPINIRole (REQUIP) 5 mg tablet Review of Systems Review of Systems All systems reviewed and are neg or non contributory for this patients presentation today other than as stated in the HPI . Physical Exam ED Triage Vitals Temp Pulse Resp BP SpO2 03/08/22 1214 03/08/22 1214 03/08/22 1214 03/08/22 1214 03/08/22 1214 36.8 ??C (98.2 ??F) 96 18 164/94 100 % Temp src Heart Rate Source Patient Position BP Location FiO2 (%) 03/08/22 1214 03/08/22 1707 03/08/22 1707 03/08/22 170 -- Oral Monitor Sitting Right arm Height Height Method Weight Weight Method 03/08/22 1214 03/08/22 1214 03/08/22 1214 03/08/22 1214 1.549 m (5' 1 ) Stated 130.2 kg (287 lb) Standing scale No data found. Physical Exam Vitals and nursing note reviewed. Constitutional: General: She is not in acute distress. Appearance: She is well-developed. HENT: Head: Normocephalic and atraumatic. Eyes: Conjunctiva/sclera: Conjunctivae normal. Cardiovascular: Rate and Rhythm: Normal rate and regular rhythm. Heart sounds: No murmur heard. Pulmonary: Effort: Pulmonary effort is normal. No respiratory distress. Breath sounds: Normal breath sounds. Musculoskeletal: Cervical back: Neck supple. Comments: No pitting edema to LE bilaterally Skin: General: Skin is warm and dry. Capillary Refill: Capillary refill takes less than 2 seconds. Neurological: Mental Status: She is alert. Psychiatric: Mood and Affect: Mood normal. Procedures MDM Labs Reviewed URINALYSIS AND REFLEX TO MICROSCOPIC AND CULTURE - Abnormal Result Value Color, ur Yellow Clarity, ur Clear Specific gravity, ur 1.015 pH, urine 5.5 Protein, ur ql Negative Glucose, ur ql Trace (*) Ketones, ur Trace Bilirubin, ur Negative Blood, ur Trace (*) Urobilinogen, ur 0.2 Nitrite, ur Negative Leukocyte esterase, ur Negative [...] tendency for uric acid stone formation. Source: [employer].Last revised 05-04-2017 CBC WITH AUTO DIFFERENTIAL - Abnormal WBC 9.8 Hgb 13.1 Hct 42.2 Plt 309 MPV 9.8 RBC 4.62 MCV 91.3 MCH 28.4 MCHC 31.0 (*) RDW CV 13.8 RDW SD 46.5 NRBC abs 0.00 COMPREHENSIVE METABOLIC PANEL - Abnormal Sodium 135 Potassium, pl 4.1 Chloride 96 (*) CO2 29 Anion gap 10 BUN 14 Creatinine 0.70 Glucose 281 (*) Calcium 9.9 Bilirubin, total 0.5 Protein, pl 7.8 Albumin 4.0 Alk phos 112 ALT 19 AST 18 TROPONIN T HIGH-SENSITIVITY SERIES (BASELINE, 2HR, 4HR, 6HR) - Abnormal Trop T hs 21 (*) PROTIME-INR - Abnormal PT 19.6 (*) INR 1.6 (*) DIFFERENTIAL AUTO - Abnormal Neutrophil abs 6.6 (*) Imm gran abs 0.1 Lymphocyte abs 2.3 Monocyte abs 0.7 Eosinophil abs 0.1 Basophil abs 0.0 Neutrophil pct 67.5 Imm gran pct 0.5 Lymphocyte pct 23.2 Monocyte pct 7.3 Eosinophil pct 1.2 Basophil pct 0.3 TROPONIN T HIGH-SENSITIVITY 2-HOUR - Abnormal Trop T hs 16 (*) Trop T hs delta -5 Trop T hs interp Equivocal URINALYSIS, MICROSCOPIC ONLY - Abnormal WBC, ur 0-5 RBC, ur 0-2 Epithelial cells, squamous, ur 1-5 Mucous, ur Present (*) Hyaline casts, ur 1-5 Culture Reflex Comment Value: Reflex conditions for urine culture (WBC >10) not met. POCT GLUCOSE DEVICE - Abnormal Glucose, POC 289 (*) Glucose comment 1 Use This Result EGFR eGFR 96 POCT GLUCOSE DEVICE XR Chest 1 View Final Result EXAM DESCRIPTION: XR CHEST 1 VIEW REASON FOR STUDY: chest pain Pt states that she started having chest pain and shortness of breath that started yesterday. Pt states that it got worse today TECHNIQUE: One radiographic view of the chest acquired. COMPARISON: 02/09/2022 FINDINGS: There is mild cardiomegaly. The pulmonary vasculature and mediastinum are grossly stable. There is no definite evidence of a pneumothorax. There is no definite evidence of focal consolidation or pleural effusion. There is a mild dextroscoliotic curvature of the spine with degenerative changes. Spinous stimulator device leads are noted. IMPRESSION: 1. No definite evidence of acute cardiopulmonary process. THIS IS AN ELECTRONICALLY VERIFIED FINAL REPORT 03/08/2022 12:58 PM - Electronically signed by Romelia Bowen D.O. BP 156/97 (BP Location: Right arm, Patient Position: Sitting) Pulse 76 Temp 36.7 ??C (98 ??F) (Oral) Resp 20 Ht 154.9 cm (5' 1 ) Wt 130.2 kg (287 lb) SpO2 95% BMI 54.23 kg/m?? MDM Amount and/or Complexity of Data Reviewed Decide to obtain previous medical records or to obtain history from someone other than the patient:yes All lab and imaging results were discussed with patient. Discussed labs are reassuring, chest x-rayis unremarkable, no elevated white blood cells. Patient states symptoms become worse after taking antibiotic for UTI, instructed to discontinue this until she speaks with her urologist again. Physical exam is reassuring, no wheezing Advised follow-up with primary care provider as well. Strict return precautions were discussed, patient expressed understanding and is agreeable to plan and discharge. All questions answered. This examination was transcribed using the [employer] voice recognition system without human vocational examiner. In an effort to expedite patient care, this report has not been adjusted for typographical, grammatical, and syntax by a trained medical/surgery registered nurse. Close outpatient follow-up with a low threshold to return has been mandated , concerning symptoms have been emphasized in detail, and this patient expresses understanding Clinical Impression: Allergic reaction to drug, initial encounter Lila Villagran PA 03/13/22 193 Cosigned by Gil Diez DO at 03/15/2022 5:57 AM INSOLE REINFORCER LE REINFORCER LE REINFORCER * Leah Coon RN - 03/08/2022 3:51 PM CST C/o nausea Leah Coon RN 03/08/221551 LE REINFORCER * Nicole Simons RN - 03/08/2022 12:15 PM CST Pt comes in today with complaints of an allergic reaction. Pt states that she is allergic to almostevery antibiotic, states that she was prescribed bactrim from here last week due to a UTI, and states that she was told to take benadryl with it. Pt states that she started having chest pain and shortness of breath that started yesterday. Pt states that it got worse today. Pt denies throat tightness . States she took benadryl before coming in. LE REINFORCER LE REINFORCER documented in this encounter Plan of Treatment Not on file documented as of this encounter Procedures Procedure Name Priority Date/Time Associated Diagnosis Comments TROPONIN T HIGH-SENSITIVITY 2-HOUR Timed 03/08/2022 2:30 PM INSOLE REINFORCER XR CHEST 1 VIEW ED 03/08/2022 12:49 PM INSOLE REINFORCER URINALYSIS AND REFLEX TO MICROSCOPIC AND CULTURE STAT 03/08/2022 12:41 PM INSOLE REINFORCER URINALYSIS, MICROSCOPIC ONLY STAT 03/08/2022 12:41 PM INSOLE REINFORCER PROTIME-INR Routine 03/08/2022 12:33 PM INSOLE REINFORCER TROPONIN T HIGH-SENSITIVITY SERIES (BASELINE, 2HR, 4HR, 6HR) STAT 03/08/2022 12:32 PM INSOLE REINFORCER EGFR STAT 03/08/2022 12:32 PM INSOLE REINFORCER DIFFERENTIAL AUTO STAT 03/08/2022 12: 32 PM INSOLE REINFORCER CBC WITH AUTO DIFFERENTIAL STAT 03/08/2022 12:32 PM INSOLE REINFORCER COMPREHENSIVE METABOLIC PANEL STAT 03/08/2022 12:32 PM INSOLE REINFORCER POCT GLUCOSE DEVICE Routine 03/08/2022 1 2:30 PM INSOLE REINFORCER ECG 12-LEAD Routine 03/08/2022 12:27 PM INSOLE REINFORCER documented in this encounter Results * (ABNORMAL) Troponin T high-sensitivity 2-hour (03/08/2022 2:30 PM INSOLE REINFORCER) Trop T hs 16(H) <=14 ng/L MARY JANE PHAM Comment: Interpretive Data For further hscTnT resources including the diagnostic algorithm and an aid in interpretation, copy and paste this link: https://nrl.testcatalog.org/show/hsTrop Current Interpretive Data last revised 2020. Testing performed by: [address] [address] Trop T hs delta -5 ng/L MARY JANE Comment:Testing performed by : [address] [address] Trop T hs interp Equivocal MARY JANE Comment:Testing performed by : [address] [address] Blood 03/08/2022 2:30 PM INSOLE REINFORCER 03/08/2022 2:33 PM INSOLE REINFORCER us Lila MCKEON LAB BLOOD ORDERABLES Final R esult Performing Organization Address City/State/[facility] Co de Phone Number MARY JANE [address] [facility] Department [place] [address] * XR Chest 1 View (03/08/2022 12:49 PM INSOLE REINFORCER) Anatomical Region Laterality Modality Body, Chest N/A Computed Radiogr aphy 03/08/2022 12:5 7 PM INSOLE REINFORCER Narrative 03/08/2022 12:58 PM INSOLE REINFORCER EXAM DESCRIPTION: ?? XR CHEST 1 VIEW REASON FOR STUDY: ?? chest pain ?? Pt states that she started having chest pain and shortness of breath that started yesterday. Pt states that it got worse today ?? TECHNIQUE: ?? One ??radiographic view of the chest acquired. COMPARISON: ?? 02/09/2022 FINDINGS: There is mild cardiomegaly. ??The pulmonary vasculature and mediastinum are grossly stable. ??There is no definite evidence of a pneumothorax. ??There is no definite evidence of focal consolidation or pleural effusion. There is a mild dextroscoliotic curvature of the spine with degenerative changes. ??Spinous stimulator device leads are noted. IMPRESSION: ?? 1. ?? No definite evidence of acute cardiopulmonary process. THIS IS AN ELECTRONICALLY VERIFIED FINAL REPORT 03/08/2022 12:58 PM - Electronically signed by ??Romelia Bowen D.O. PS: PS D: ??03/08/2022 12:58 PM T: ??03/08/2022 12:58 PM Report ID: [id number] Reading Location: ??[id number] Procedure Note Romelia Bowen, DO - 03/08/2022 EXAM DESCRIPTION: XR CHEST 1 VIEW REASON FOR STUDY: chest pain Pt states that she started having chest pain and shortness of breath that started yesterday. Pt states that it got worse today TECHNIQUE: One radiographic view of the chest acquired. COMPARISON: 02/09/2022 FINDINGS: There is mild cardiomegaly. The pulmonary vasculature and mediastinum are grossly stable. There is no definite evidence of a pneumothorax. There is no definite evidence of focal consolidation orpleural effusion. There is a mild dextroscoliotic curvature of the spine with degenerative changes. Spinous stimulator device leads are noted. IMPRESSION: 1. No definite evidence of acute cardiopulmonary process. THIS IS AN ELECTRONICALLY VERIFIED FINAL REPORT 03/08/2022 12:58 PM - Electronically signed by Romelia Bowen D.O. PS: PS Report ID: [id number] Reading Location: [id number] Lila MCKEON IMG XR PROCEDURES Final Resu lt * (ABNORMAL) Urinalysis, microscopic only (03/08/2022 12:41 PM INSOLE REINFORCER) WBC, ur 0-5 0 - 5 /HPF MARY JANE PHAM Comment:Testing performed by : [address] [address] RBC, ur 0-2 0 - 2 /HPF MARY JANE PHAM Comment:Testing performed by : [address] [address] Epithelial cells, squamous, ur 1-5 0 - 5 /HPF MARY JANE PHAM Comment:Testing performed by : [address] [address] Mucous, ur Present(A) MARY JANE PHAM Comment:Testing performed by : [address] [address] Hyaline casts, ur 1-5 0 - 10 /LPF MARY JANE Comment:Testing performed by : [address] [address] Culture Reflex Comment Reflex conditions for urine culture (WBC >10) not met. MARY JANE Comment:Testing performed by : [address] [address] Urine 03/08/2022 12:4 1 PM INSOLE REINFORCER 03/08/2022 12:54 PM INSOLE REINFORCER us Lila MCKEON LAB URINE ORDERABLES Final R esult MARY JANE PHAM [facility] [facility] Department [place] [address] * (ABNORMAL) Urinalysis reflex to microscopic and culture Urine (03/08/2022 12:41 PM INSOLE REINFORCER) Color, ur Yellow Yellow MARY JANE PHAM Comment:Testing performed by : [address] [address] Clarity, ur Clear Clear MARY JANE PHAM Comment:Testing performed by : [address] [address] Specific gravity, ur 1.015 1.003 - 1.030 MARY JANE PHAM Comment:Testing performed by : [address] [address] pH, urine 5.5 MARY JANE Comment:Testing performed by : [address] [address] Protein, ur ql Negative Negative MARY JANE Comment:Testing performed by : [facility], [address] [place] [address], [place]., [address] Glucose, ur ql Trace(A) Negative MARY JANE Comment:Testing performed by : [facility], [address] [place] [address], [place]., [address] Ketones, ur Trace Negative MARY JANE Comment:Testing performed by : [address], [place]., [address] Bilirubin, ur Negative Negative MARY JANE Comment:Testing performed by : [facility], [address] [place] [address], [place]., [address] Blood, ur Trace(A) Negative MARY JANE Comment:Testing performed by : [address], [place]., [address] Urobilinogen, ur 0.2 <2.0 mg/dL MARY JANE Comment:Testing performed by : [address], [place]., [address] Nitrite, ur Negative Negative MARY JANE Comment:Testing performed by : [facility], [address] [place] [address], [place]., [address] Leukocyte esterase, ur Negative Negative MARY JANE Comment:Testing performed by : [address], [place]., [address] UA reflex comment Reflex to microscopic UA will be performed. MARY JANE Comment:Testing performed by : [address], [place]., [address] Urine 03/08/2022 12:4 1 PM INSOLE REINFORCER 03/08/2022 12:54 PM INSOLE REINFORCER Narrative MARY JANE - 03/08/2022 1:02 PM INSOLE REINFORCER ?? Urine pH is affected by diet, medications, systemic acid-base disturbances, and renal tubular function. ??pH may affect urinary stone formation. ??For example, urine pH below 6.0 may help reduce the tendency for calcium phosphate stones and pH greater than 6.0 may reduce the tendency for uric acid stone formation. Source: [employer]. Last revised 05-04-2017 us Lila MCKEON LAB MICROBIOLOGY - GENERAL O RDERABLES Final Result [facility] [address] [facility] Department [place] [address] * (ABNORMAL) Protime-INR (03/08/2022 12:33 PM INSOLE REINFORCER) PT 19.6(H) 12.0 - 14.6 sec MARY JANE Comment: Ref Range High Testing performed by: [facility], [address] [place] [address]., [address] INR 1.6(H) 0.9 - 1.2 MARY JANE Comment: Ref Range High Interpretive data Oral anticoagulant therapeutic ranges: Venous thromboembolism prophylaxis or treatment: 2.0-3.0 CARDIOLOGY Standard range: 2.0-3.0 High-intensity range: 2.5-3.5 Refer to indication-specific guidelines for appropriate target ranges for prosthetic heart valve replacement. Current interpretive data was last revised on 2019. Testing performed by: [facility], [address] [place] [address]., [address] Blood 03/08/2022 12:3 3 PM INSOLE REINFORCER 03/08/2022 12:54 PM INSOLE REINFORCER Gil Diez DO LAB BLOOD ORDERABLES Final Result [facility] [address] [facility] Department of [address] [place] [address] * eGFR (03/08/2022 12:32 PM INSOLE REINFORCER) Pathologist [facility] eGFR 96 mL/min/1. 73 m2 MARY JANE [...] last reviewed 2021. Testing performed by: [address] [address] Blood 03/08/2022 12:3 2 PM INSOLE REINFORCER 03/08/2022 12:54 PM INSOLE REINFORCER us Lila MCKEON LAB BLOOD ORDERABLES Final R esult [facility] [address] [facility] Department [place] [address] * (ABNORMAL) Differential, auto (03/08/2022 12:32 PM INSOLE REINFORCER) Neutrophil abs 6.6(H) 1.7 - 6.5 K/cumm MARY JANE Comment:Testing performed by : [address] [address] Imm gran abs 0.1 0.0 - 0.1 K/cumm MARY JANE Comment:Testing performed by : [address] [address] Lymphocyte abs 2.3 0.8 - 3.3 K/cumm MARY JANE Comment:Testing performed by : [address] [address] Monocyte abs 0.7 0.2 - 0.8 K/cumm MARY JANE Comment:Testing performed by : [address] [address] Eosinophil abs 0.1 0.0 - 0.5 K/cumm MARY JANE Comment:Testing performed by : [address] [address] Basophil abs 0.0 0.0 - 0.1 K/cumm MARY JANE Comment:Testing performed by : [address] [address] Neutrophil pct 67.5 % MARY JANE Comment: Interpretive Data Percent cell count reference ranges are not reported, since discordance with absolute values may lead to misinterpretation of CBC data. Current Interpretive Data was last revised on 2017. Testing performed by: [address] [address] Imm gran pct 0.5 % MARY JANE Comment: Interpretive Data Percent cell count reference ranges are not reported, since discordance with absolute values may lead to misinterpretation of CBC data. Current Interpretive Data was last revised on 2017. Testing performed by: [address] [address] Lymphocyte pct 23.2 % MARY JANE Comment: Interpretive Data Percent cell count reference ranges are not reported, since discordance with absolute values may lead to misinterpretation of CBC data. Current Interpretive Data was last revised on 2017. Testing performed by: [address] [address] Monocyte pct 7.3 % MARY JANE Comment: Interpretive Data Percent cell count reference ranges are not reported, since discordance with absolute values may lead to misinterpretation of CBC data. Current Interpretive Data was last revised on 2017. Testing performed by: [address] [address] Eosinophil pct 1.2 % MARY JANE Comment: Interpretive Data Percent cell count reference ranges are not reported, since discordance with absolute values may lead to misinterpretation of CBC data. Current Interpretive Data was last revised on 2017. Testing performed by: [address] [address] Basophil pct 0.3 % MARY JANE Comment: Interpretive Data Percent cell count reference ranges are not reported, since discordance with absolute values may lead to misinterpretation of CBC data. Current Interpretive Data was last revised on 2017. Testing performed by: [address] [address] Blood 03/08/2022 12:3 2 PM INSOLE REINFORCER 03/08/2022 12:54 PM INSOLE REINFORCER Lila MCKEON LAB BLOOD ORDERABLES Final R esult Performing Organization Address [facility] Co de Phone Number MARY JANE [address] [facility] Department [place] [address] * (ABNORMAL) Troponin T high-sensitivity series (baseline, 2hr, 4hr, 6hr) (03/08/2022 12:32 PM INSOLE REINFORCER) Trop T hs 21(H) <=14 ng/L MARY JANE PHAM Comment: Interpretive Data For further hscTnT resources including the diagnostic algorithm and an aid in interpretation, copy and paste this link: https://nrl.testcatalog.org/show/hsTrop Current Interpretive Data last revised 2020. Testing performed by: [address] [address] Blood 03/08/2022 12:3 2 PM INSOLE REINFORCER 03/08/2022 12:54 PM INSOLE REINFORCER Lila MCKEON LAB BLOOD ORDERABLES Final R esult Performing Organization Address City/[facility] Co de Phone Number MARY JANE [facility] Department [place] [address] * (ABNORMAL) Comprehensive metabolic panel (03/08/2022 12:32 PM INSOLE REINFORCER) Sodium 135 135 - 145 mmol/L MARY JANE PHAM Comment:Testing performed by : [address] [address] Potassium, pl 4.1 3.3 - 4.9 mmol/L MARY JANE PHAM Comment:Testing performed by : [address] [address] Chloride 96(L) 97 - 110 mmol/L MARY JANE PHAM Comment:Testing performed by : [address] [address] CO2 29 22 - 32 mmol/L MARY JANE Comment:Testing performed by : [address] [address] Anion gap 10 2 - 15 mmol/L AMRY JANE Comment:Testing performed by : [address] [address] BUN 14 8 - 25 mg/dL MARY JANE Comment:Testing performed by : [address] [address] Creatinine 0.70 0.60 - 1.10 mg/dL [facility] Comment:Testing performed by : [address] [address] Glucose 281(H) 70 - 199 mg/dL MARY JANE Comment: [...] classification and Diagnosis of Diabetes Diabetes Care 2017;40 (Suppl. 1):S11. Current interpretive data was last revised 2017. Testing performed by: [address] [address] Calcium 9.9 8.5 - 10.3 mg/dL MARY JANE Comment:Testing performed by : [address] [address] Bilirubin, total 0.5 0.1 - 1.2 mg/dL [facility] Comment:Testing performed by : [address] [address] Protein, pl 7.8 6.5 - 8.5 g/dL MARY JANE Comment:Testing performed by : [address] [address] Albumin 4.0 3.5 - 5.0 g/dL MARY JANE Comment:Testing performed by : [address] [address] Alk phos 112 40 - 130 Units/L MARY JANE PHAM Comment:Testing performed by : [address] [address] ALT 19 7 - 45 Units/L MARY JANE PHAM Comment:Testing performed by : [address] [address] AST 18 10 - 45 Units/L MARY JANE PHAM Comment:Testing performed by : [address] [address] Blood 03/08/2022 12:3 2 PM INSOLE REINFORCER 03/08/2022 12:54 PM INSOLE REINFORCER us Lila MCKEON LAB BLOOD ORDERABLES Final R esult MARY JANE [facility] Department [place] [address] * (ABNORMAL) CBC with auto differential (03/08/2022 12:32 PM INSOLE REINFORCER) Pathologist [facility] WBC 9.8 3.8 - 9.9 K/cumm MARY JANE PHAM Comment:Testing performed by : [address] [address] Hgb 13.1 11.9 - 15.5 g/dL MARY JANE PHAM Comment:Testing performed by : [address] [address] Hct 42.2 35.6 - 45.5 % MARY JANE PHAM Comment:Testing performed by : [address] [address] Plt 309 150 - 400 K/cumm MARY JANE PHAM Comment:Testing performed by : [address] [address] MPV 9.8 9.1 - 12.3 fL MARY JANE PHAM Comment:Testing performed by : [address] [address] RBC 4.62 3.90 - 5.20 M/cumm MARY JANE PHAM Comment:Testing performed by : [address] [address] MCV 91.3 81.3 - 96.4 fL MARY JANE PHAM Comment:Testing performed by : [address] [address] MCH 28.4 27.1 - 33.3 pg MARY JANE PHAM Comment:Testing performed by : [address] [address] MCHC 31.0(L) 32.3 - 35.7 g/dL MARY JANE PHAM Comment:Testing performed by : [address] [address] RDW CV 13.8 11.1 - 14.9 % MARY JANE Comment:Testing performed by : [address] [address] RDW SD 46.5 35.7 - 48.1 fL MARY JANE Comment:Testing performed by : [address] [address] NRBC abs 0.00 0.00 - 0.01 K/cumm MARY JANE PHAM Comment:Testing performed by : [address] [address] Blood 03/08/2022 12:3 2 PM INSOLE REINFORCER 03/08/2022 12:54 PM INSOLE REINFORCER us Lila MCKEON LAB BLOOD ORDERABLES Final R esult MARY JANE [address] [facility] Department of Laboratories [place], [place] [id number] * (ABNORMAL) POCT glucose (03/08/2022 12:30 PM INSOLE REINFORCER) [facility] Glucose, POC 289(H) 70 - 199 mg/dL MARY JANE Comment:Testing performed by : [address] [address] Glucose comment 1 Use This Result MARY JANE Comment:Testing performed by : [address] [address] Blood 03/08/2022 12:3 0 PM INSOLE REINFORCER 03/08/2022 12:30 PM INSOLE REINFORCER us Notinfile Unknown LAB POCT ORDERABLES - DEVICE F inal Result Performing Organization Address City/[facility]/ZIP Co de Phone Number MARY JANE [address] Department [place] [address] * ECG 12 lead (03/08/2022 12:27 PM INSOLE REINFORCER) Pathologist [facility] Ventricular Rate EKG/Min 88 BPM [facility] Atrial Rate 88 BPM [facility] KS-Interval (MSEC) 126 ms [facility] QRS-Interval (MSEC) 82 ms [facility] QT-Interval (MSEC) 366 ms [facility] QTc 442 ms [facility] P [place] 35 degrees [facility] R [place] 1 degrees [facility] T [place] 35 degrees [facility] Diagnosis Normal sinus rhythm Possible Left atrial enlargement Borderline ECG When compared with ECG of 16-FEB-2022 09:00, No significant change was found [facility] 03/08/2022 12:2 7 PM INSOLE REINFORCER 03/09/2022 12:11 PM INSOLE REINFORCER Lila MCKEON ECG ORDERABLES Final Result Performing Organization Address [facility] Co de Phone Number [facility] documented in this encounter Visit Diagnoses Diagnosis Allergic reaction to drug, initial encounter- Primary documented in this encounter Administered Medications Inactive Administered Medications - up to 3 most recent administrations Medication Order MAR Action Action Date Dose Rate Site famotidine (PEPCID) injection 20 mg 20 mg, intravenous, Administer over 2 Minutes, Once, On Mon03/08/22 at 1220, For 1 dose Given 03/08/2022 1:03 PM INSOLE REINFORCER 20 mg methylPREDNISolone sodium succinate (SOLU-medrol) 130 mg in sodium chloride 0.9% 50 mL IVPB 130 mg (rounded from 130.2 mg = 1 mg/kg ? 130.2 kg), intravenous, at 104.2 mL/hr, Administer over 30 Minutes, Once, On Mon03/08/22 at 1220, For 1 dose, Indications: edemaIndications:chioma a New Bag 03/08/2022 1:10 PM INSOLE REINFORCER 130 mg 104.2 mL/hr ondansetron (ZOFRAN) injection 4 mg 4 mg, intravenous, Administer over 2 Minutes, Once, On Mon03/08/22 at 1547, For 1 dose Given 03/08/2022 3:49 PM INSOLE REINFORCER 4 mg Right Antecubital documented in this encounter Discontinued Medications Medication Sig Discontinue Reason Start Date End Da te ondansetron (ZOFRAN) 4 mg tablet Take 1 tablet (4 mg total) by mouth every 4 (four) hours as needed for nausea or vomiting 10/21/2021 03/08/2022 documented as of this encounter Active and Recently Administered Medications Times are shown in INSOLE REINFORCER. Scheduled Medication Order 03/06/2022 03/07/2022 03/08/2022 famotidine (PEPCID) injection 20 mg (COMPLETED) 20 mg, intravenous, Administer over 2 Minutes, Once, On Mon03/08/22 at 1220, For 1 dose 1303 (Given - Provid er: Grisel Flower RN) methylPREDNISolone sodium succinate (SOLU-medrol) 130 mg in sodium chloride 0.9% 50 mL IVPB (COMPLETED) 130 mg (rounded from 130.2 mg = 1 mg/kg ? 130.2 kg), intravenous, at 104.2 mL/hr, Administer over 30 Minutes, Once, On Mon03/08/22 at 1220, For 1 dose, Indications: edema 1310 (New Bag - Prov ider: Grisel Flower RN)1341 (Stopped - Provider: Leah Coon, NURIS) ondansetron (ZOFRAN) injection 4 mg (COMPLETED) 4 mg, intravenous, Administer over 2 Minutes, Once, On Mon03/08/22 at 1547, For 1 dose 1549 (Given - Provid er: Leah Coon, NURIS) documented in this encounter Orders Lab Orders Without Results Count Last Ordered D ate First Ordered Date POCT GLUCOSE DEVICE 1 03/08/2022 Nursing Count Last Ordered Date First Orde red Date MISCELLANEOUS NURSING CARE ORDER (SPECIFY) 1 03/08/2022 documented in this encounter Additional Health Concerns Infection Onset Date Last Indicated Resolved Time COVID: Recovered 02/10/2022 02/10/2022 06/10/2022 3:05 AM INSOLE REINFORCER documented as of this encounter Care Teams Pit Clerk Relationship Specialty Start Date End Date Justen Gale MD [address] [id number] PCP - General 10/09/17 Liu Jerez MD Consulting Physician Gastroenterology 07/28/17 [place] [address] [address] [facility] [address] [place] [address] Consulting Physician Pulmonary Disease 08/03/17 Khris Arthur MD [address] [facility] [address] [place] [address] Medical Oncologist/Safety Professional Medical Oncology 10/23/17 [place] [address] [facility] [address] [place] [address] Surgeon Orthopedic Surgery 10/23/17 [place] [address] [facility] [address] [place] [address] Consulting Physician Pain Management 10/23/17 [place] [address] [facility] [address] [place] [address] Referring Physician General Surgery 01/26/18 [place] [address] [facility] [address] [place] [address] Consulting Physician Neurology 01/26/18 documented as of this encounter
--- OUTSIDE RECORDS SUMMARY | 2024-04-26 04:20 | XMS_ITS | Encounter Summary ---
Author Organization [facility] Address [address] [place] [address] Phone Care Team Providers Care Deputy Sheriff Building Guard Name Role Phone Liu Jerez MD Unavailable Albert Corbin MD Unavailable Justen Gale MD Primary Care Provider Khris Arthur MD Unavailable [phone] Ko Melendez MD Unavailable John Paul Moyer MD Unavailable Annel Rod MD Unavailable Anali MARSHALL MD, Carlos M. Unavailable Reason for Visit * Reason Onset Date Comments No Show 04/12/2022 Encounter Details Date Type Department Care Team (Late st Contact Info) Description 04/12/2022 Telephone [facility] Oncology [address] [facility] 7th [place] [address] [place] [address] Jeanine Ba, A No Show Social History Tobacco Use Types Packs/Day Years [...] often do you attend chur ch or jewish services? Never 02/11/2022 Do you belong to any clubs o r organizations such as yarsani groups, unions, fraternal or athletic groups, or [...] slept in a mcc (including now)? 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 Female 12:24 AM SECTION CUTTER Gender Identity Not on file Sexual Orientation Not on file documented as of this encounter Miscellaneous Notes * Telephone Encounter - Jeanine Ba RMA - 04/12/2022 3:18 PM SECTION CUTTER Called pt due to her missing her appt today with Rabia. No answer, left message for her to call the office to randall. Dexa/ROV ION CUTTER documented in this encounter Plan of Treatment Not on file documented as of this encounter Visit Diagnoses Not on filedocumented in this encounter Additional Health Concerns Infection Onset Date Last Indicated Resolved Time COVID: Recovered 02/10/2022 02/10/2022 06/10/2022 3:05 AM SECTION CUTTER documented as of this encounter Care Teams Deputy Sheriff Building Guard Relationship Specialty Start Date End Date Justen Gale MD [address] [facility] [address] [place] [address] PCP - General 10/09/17 Liu Jerez MD Consulting Physician Gastroenterology 07/28/17 [place] [id number] [place] [address] Consulting Physician Pulmonary Disease 08/03/17 Khris Arthur MD [address] [facility] [address] [place] [address] Medical Oncologist/Scientific Specialist Medical Oncology 10/23/17 [place] [address] [facility] [address] [place] [address] Surgeon Orthopedic Surgery 10/23/17 [place] [address] [facility] [address] [place] [address] Consulting Physician Pain Management 10/23/17 [place] [address] [facility] [address] [place] [address] Referring Physician General Surgery 01/26/18 [place] [address] [facility] [address] [place] [address] Consulting Physician Neurology 01/26/18 documented as of this encounter
--- OUTSIDE RECORDS SUMMARY | 2024-04-26 04:20 | XMS_ITS | Encounter Summary ---
Author Organization [facility] Address [address] [place] [address] Phone Care Team Providers Care Instructional Technology Teacher Name Role Phone Liu Jerez MD Unavailable Albert Corbin MD Unavailable Justen Gale MD Primary Care Provider Khris Arthur MD Unavailable [phone] Ko Melendez MD Unavailable [phone] John Paul Moyer MD Unavailable Annel Rod MD Unavailable Anali MARSHALL MD, Carlos M. Unavailable Encounter Details Date Type Department Care Team (Late st Contact Info) Description 03/10/2022 Orders Only [facility] Oncology [address] [facility] 7th [place] [address] [place] [address] Radha Mcgrath RN Malignant neoplasm [...] often do you attend chur ch or scientologist services? Never 02/11/2022 Do you belong to any clubs o r organizations such as gnosticism groups, unions, fraternal or athletic groups, or [...] slept in a residential (including now)? 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 Female 12:24 AM CERTIFIED SURGICAL TECHNOLOGIST Gender Identity Not on file Sexual Orientation [...] mg total) by mouth nightly 90 tablet 03/10/2022 3 documented in this encounter Plan of [...] (25 mg total) by mouth nightly Reorder 11/30/2021 03/10/2022 documented as of this encounter Additional Health Concerns Infection Onset Date Last Indicated Resolved Time COVID: Recovered 02/10/2022 02/10/2022 06/10/2022 3:05 AM CERTIFIED SURGICAL TECHNOLOGIST documented as of this encounter Care Teams Instructional Technology Teacher Relationship Specialty Start Date End Date Justen Gale MD 2 [facility] [address] [place] [address] PCP - General 10/09/17 Liu Jerez MD Consulting Physician Gastroenterology 07/28/17 [place] [address] [facility] [address] [place] [address] Consulting Physician Pulmonary Disease 08/03/17 Khris Arthur MD [address] [facility] [address] [place] [address] Medical Oncologist/Dealer Accounts Investigator Medical Oncology 10/23/17 [place] [address] [facility] [address] [place] [address] Surgeon Orthopedic Surgery 10/23/17 [place] [address] [facility] [address] [place] [address] Consulting Physician Pain Management 10/23/17 [place] [address] [facility] [address] [place] [address] Referring Physician General Surgery 01/26/18 [place] [address] [address] Consulting Physician Neurology 01/26/18 documented as of this encounter
--- OUTSIDE RECORDS SUMMARY | 2024-04-26 04:20 | XMS_ITS | Encounter Summary ---
Author Organization [facility] Address [address] [facility] [address] [place] [address] Care Team Providers Care Compounding And Finishing Supervisor Name Role Phone Liu Jerez MD Unavailable [phone] Albert Corbin MD Unavailable [phone] Justen Gale MD Primary Care Provider Khris Arthur MD Unavailable [phone] Ko Melendez MD Unavailable [phone] John Paul Moyer MD Unavailable Annel Rod MD Unavailable Anali MARSHALL MD, Carlos M. Unavailable [phone] Encounter Details Date Type Department Care Team (Late st Contact Info) Description 03/21/2022 Orders Only [facility] Cardiology [address] [place] [address] Melvin Barnes MD [address] [facility] [address] [facility] [address] [place] [address] Social History Tobacco Use Types Packs/Day Years [...] any clubs o r organizations such as gnosticist groups, unions, fraternal or athletic groups, or [...] file Legal Sex Female 12:24 AM CERTIFIED BENCH JEWELER TECHNICIAN Gender Identity Not on file Sexual Orientation Not on file documented as of this encounter Plan of Treatment Not on file documented as of this encounter Procedures Procedure Name Priority Date/Time Associated Diagnosis Comments CARDIOLOGY DOCUMENT SCAN Routine 03/21/2022 documented in this encounter Results * Cardiology Document Scan (03/21/2022) Anatomical Region Laterality Modality Other us Melvin Barnes MD CV [facility] Final Result documented in this encounter Visit Diagnoses Not on filedocumented in this encounter Additional Health Concerns Infection Onset Date Last Indicated Resolved Time COVID: Recovered 02/10/2022 02/10/2022 06/10/2022 3:05 AM CERTIFIED BENCH JEWELER TECHNICIAN documented as of this encounter Care Teams Compounding And Finishing Supervisor Relationship Specialty Start Date End Date Justen Gale MD 2 [facility] [address] [place] [address] PCP - General 10/09/17 Liu Jerez MD Consulting Physician Gastroenterology 07/28/17 [place] [address] [facility] [address] [place] [address] Consulting Physician Pulmonary Disease 08/03/17 Khris Arthur MD [address] [facility] [address] [place] [address] Medical Oncologist/Surveillance Director Medical Oncology 10/23/17 [place] [address] [address] [facility] [address] [place] [address] Surgeon Orthopedic Surgery 10/23/17 [place] [address] [facility] [address] [place] [address] Consulting Physician Pain Management 10/23/17 [place] [address] [facility] [address] [place] [address] Referring Physician General Surgery 01/26/18 [place] [address] [facility] [address] [place] [address] Consulting Physician Neurology 01/26/18 documented as of this encounter
--- OUTSIDE RECORDS SUMMARY | 2024-04-26 04:20 | XMS_ITS | Encounter Summary ---
Author Organization [facility] Healthcare Address [address] [place] [address] Care Team Providers Care Profiling Machine Setup Operator Name Role Phone Liu Jerez MD Unavailable Albert Corbin MD Unavailable [phone] Justen Gale MD Primary Care Provider [phone] Khris Arthur MD Unavailable [phone] Ko Melendez MD Unavailable John Paul Moyer MD Unavailable Annel Rod MD Unavailable Anali MARSHALL MD, Carlos M. Unavailable Reason for Visit * Reason Comments Urinary Problem Encounter Details Date Type Department Care Team (Late st Contact Info) Description 02/27/2022 11:18 AM HOSPITAL EDUCATOR - 02/27/2022 1:12 PM [facility] Emergency [facility] Emergency Department [address] [place] [address] Kirit Everett DO [facility] [place] [address] Acute cystitis with hematuria (Primary Dx); History of recurrent UTIs Discharge Disposition: Discharge to home or self [...] How often do you attend chur or latter-day services? Never 02/11/2022 Do you belong to any clubs o r organizations such as samaritan groups, unions, fraternal or athletic groups, or [...] slept in a half-way (including now)? 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 Female 12:24 AM HOSPITAL EDUCATOR Gender Identity Not on file Sexual Orientation Not on file documented as of this encounter Last Filed Vital Signs Vital Sign Reading Time Taken Comments Blood Pressure 180/105 02/27/2022 1:10 PM HOSPITAL EDUCATOR Pulse 82 02/27/2022 1:10 PM HOSPITAL EDUCATOR Temperature 36.8 ??C (98.3 ??F) 02/27/2022 10:[address] Respiratory Rate 18 02/27/2022 1:10 PM HOSPITAL EDUCATOR Oxygen Saturation 99% 02/27/2022 1:10 PM HOSPITAL EDUCATOR Inhaled Oxygen Concentration - - Weight 130 kg (286 lb 9.6 oz) 02/27/2022 10:19 A M HOSPITAL EDUCATOR Height 154.9 cm (5' 1 ) 02/27/2022 10:19 AM HOSPITAL EDUCATOR Body Mass Index 54.15 02/27/2022 10:19 AM HOSPITAL EDUCATOR documented in this encounter Discharge Instructions * Attachments The following attachments cannot be sent through Care Everywhere. * Urinary Tract Infection in Women (AfterCare(R) Instructions(ER/ED)) (Bangladeshi) documented in this encounter Medications at Time [...] for nausea or vomiting 20 tablet 2 03/08/20 22 oxybutynin (DITROPAN) 5 mg tablet take 1 [...] mg total) by mouth daily 30 tablet 2 2 03/01/20 22 documented as of this encounter Ordered Prescriptions Prescription Sig Dispense Quantity Refills Last Filled Start Date End Date nitrofurantoin monohydrate (MACROBID) 100 mg capsule Take 1 capsule (100 mg total) by mouth 2 (two) times a day for 14 days 28 capsule 02/27/2022 2 documented in this encounter Discharge Disposition Disposition Code Departure Means Destination Discharge to home or self care documented in this encounter ED Notes * Kirit Everett DO - 02/27/2022 11:38 AM CST HPI Chief Complaint Patient presents with Urinary Problem 11:38 AM Karly Marques is a 66 y.o. female w/ PMHx including breast cancer, CHF, DM, HTN, DVT, thyroid disease,depression presenting to the ED w/ c/o urinary problem. Pt states she started havinglower abdominal pain 4 days ago. She reports sje is having associated shortness of breath, nausea, decreased appetite, frequent urination and pain with urination. Pt reports she has been having recurrent UTIs. She states she was hospitalized for similar symptoms and she was discharged from the hospital on 02/17/22. Pt claims she was not sent home with antibiotics. Pt denies fever, or any other associated symptoms. History provided by: Patient Patient History: Past Medical History: Diagnosis Date Adiposity obesity Breast CA (CMS/HCC) (HCC) Cancer ([facility]/HCC) (HCC) breast CHF (congestive heart failure) ([facility] ([facility]) Depression Depression Diabetes (HCC) Disorder of thyroid Thyroid disease DVT (deep venous thrombosis) ([facility] ([facility]) HX OTHER MEDICAL restless leg syndrome HX OTHER MEDICAL RLS Hypertension Hypertension Osteoarthritis osteoarthritis PE (pulmonary thromboembolism) ([facility] ([facility]) Sleep apnea Past Surgical History: Procedure Laterality [...] medications for this encounter. Current Outpatient Medications: amitriptyline (ELAVIL) 25 mg tablet exemestane (AROMASIN) 25 mg tablet HYDROcodone-acetaminophen (NORCO) 7.5-325 mg per tablet insulin glargine (LANTUS) 100 unit/mL injection insulin lispro (HumaLOG) 100 unit/mL injection meclizine (ANTIVERT) 25 mg tablet oxybutynin (DITROPAN) 5 mg tablet rOPINIRole (REQUIP) 5 mg tablet albuterol HFA (PROVENTIL HFA,VENTOLIN HFA,PROAIR HFA) 90 mcg/actuation inhaler BD Ultra-Fine Short Pen Needle 31 gauge x 5/16 needle blood glucose diagnostic (SEElogixuch Ultra Test) strip lidocaine viscous (XYLOCAINE) 2 % solution mupirocin (BACTROBAN) 2 % ointment naloxone (NARCAN) 4 mg/actuation spray,non-aerosol nitrofurantoin monohydrate (MACROBID) 100 mg capsule nystatin powder ondansetron (ZOFRAN) [address] (PROTONIX) 40 mg EC tablet rivaroxaban (Xarelto) 20 mg tablet Review of Systems Review of Systems Constitutional: Positive for appetite change. Negative for chills and fever. HENT: Negative for ear pain and sore throat. Eyes: Negative for pain and visual disturbance. Respiratory: Positive for shortness of breath. Negative for cough. Cardiovascular: Negative for chest pain and palpitations. Gastrointestinal: Positive for abdominal pain and nausea. Negative for vomiting. Genitourinary: Positive for difficulty urinating and frequency. Negative for hematuria. Musculoskeletal: Negative for arthralgias and back pain. Skin: Negative for color change and rash. Neurological: Negative for seizures and syncope. All other systems reviewed and are negative. All systems reviewed and are negative or non contributory for this patients presentation today other than as stated in the HPI . Physical Exam ED Triage Vitals Temp Pulse Resp BP SpO2 02/27/22 1019 02/27/22 1019 02/27/22 1019 02/27/22 1019 02/27/22 1019 36.8 ??C (98.3 ??F) 103 18 (!) 187/115 97 % Temp src Heart Rate Source Patient Position BP Location FiO2 (%) 02/27/22 1019 02/27/22 1129 02/27/22 1129 02/27/22 1129 -- Oral Monitor Lying Right arm Height Height Method Weight Weight Method 02/27/22 1019 02/27/22 1019 02/27/22 1019 02/27/22 1019 1.549 m (5' 1 ) Stated 130 kg (286 lb 9.6 oz) Standing scale Physical Exam Vitals and [...] no guarding. Musculoskeletal: Cervical back: Neck supple. Skin: General: Skin is warm and dry. Neurological: Mental Status: She is alert and oriented to person, place, and time. Procedures MDM Labs Reviewed URINALYSIS AND REFLEX TO MICROSCOPIC AND CULTURE - Abnormal Result Value Color, ur Yellow Clarity, ur Cloudy (*) Specific gravity, ur 1.018 pH, urine 5.0 Protein, ur ql Negative Glucose, ur ql Negative Ketones, ur Negative Bilirubin, ur Negative Blood, ur 2+ (*) Urobilinogen, ur <2.0 Nitrite, ur Negative Leukocyte esterase, ur 4+ (*) UA reflex comment Reflex to microscopic UA will be performed. Narrative: Urine pH is affected by diet, medications, systemic acid-base disturbances, and renal tubular function. pH may affect urinary stone formation. For example, urine pH below 6.0 may help reduce the tendency for calcium phosphate stones and pH greater than 6.0 may reduce the tendency for uric acid stone formation. Source: [employer].Last revised 05-04-2017 URINALYSIS, MICROSCOPIC ONLY - Abnormal WBC, ur >50 (*) RBC, ur >50 (*) Mucous, ur Present (*) Hyaline casts, ur 6-10 Culture Reflex Comment Reflex to urine culture will be performed. CBC WITH AUTO DIFFERENTIAL - Abnormal WBC 11.3 (*) Hgb 13.3 Hct 42.7 Plt 308 MPV 9.4 RBC 4.62 MCV 92.4 MCH 28.8 MCHC 31.1 (*) RDW CV 13.9 RDW SD 47.3 NRBC abs 0.00 COMPREHENSIVE METABOLIC PANEL - Abnormal Sodium 136 Potassium, pl 4.3 Chloride 98 CO2 30 Anion gap 8 BUN 19 Creatinine 0.70 Glucose 300 (*) Calcium 10.2 Bilirubin, total 0.5 Protein, pl 8.5 Albumin 4.0 Alk phos 110 ALT 20 AST 15 DIFFERENTIAL AUTO - Abnormal Neutrophil abs 7.9 (*) Imm gran abs 0.1 Lymphocyte abs 2.4 Monocyte abs 0.7 Eosinophil abs 0.2 Basophil abs 0.0 Neutrophil pct 70.3 Imm gran pct 0.4 Lymphocyte pct 20.8 Monocyte pct 6.2 Eosinophil pct 2.0 Basophil pct 0.3 URINE CULTURE Report Value: Final Report: Less than 100,000 colonies/mL (clinically insignificant growth based on current clinical standards) Organism (CLINICALLY INSIGNIFICANT GROWTH Narrative: Urine culture reflexed based upon urinalysis results. Testing performed by [facility] ([phone]) PROTIME-INR PT 13.6 INR 1.0 APTT aPTT 25 SEPSIS LACTATE WITH REFLEX Sepsis Lactate 1.0 EGFR eGFR 96 BP (!) 180/105 (BP Location: Right arm, Patient Position: HOB 30 degrees) Pulse 82 Temp 36.8 ??C (98.3 ??F) (Oral) Resp 18 Ht 154.9 cm (5' 1 ) Wt 130 kg (286 lb 9.6 oz) SpO2 99% BMI 54.15 kg/m?? [facility] ED Course as of 03/03/22 0618 Time: 02/27 1229 Comment: Pt was given: Benadryl tablet 25 mg, Macrobid capsule 100 mg. By: Kay Myers Time: 02/27 1259 Comment: Reassessed pt. Pt is tolerating the antibiotic with no reaction. Pt is stable for discharge. She was advised to follow-up with her PCP in a week. By: Kay Myers Ca home with macrobid Clinical Impression: Acute cystitis with hematuria History of recurrent UTIs This note was prepared by Kay Myers, acting as a Scribe for Kirit Everett DO. I electronically signed this note at 6:18 AM on 03/03/2022. I, Kirit Everett DO, personally performed the services described in this documentation, reviewedand edited the documentation which was dictated to the scribe in my presence, and it accurately records my words and actions. Kirit Everett DO 03/03/22617 ITAL EDUCATOR * Christin Abdalla RN - 02/27/2022 10:12 AM CST Patient reports recurrent UTI's. Admitted to this facility for similar symptoms on 02/09 and DC 02/17- reports she has several allergic reactions to antibiotics. Patient reports urinary frequency, dysuria, urgency, and suprapubic pressure x 2 days. Denies fever. Reports nausea and decreased appetite. ITAL EDUCATOR ITAL EDUCATOR documented in this encounter Plan of Treatment Not on file documented as of this encounter Procedures Procedure Name Priority Date/Time Associated Diagnosis Comments SEPSIS LACTATE WITH REFLEX STAT 02/27/2022 11:24 AM HOSPITAL EDUCATOR EGFR STAT 02/27/2022 11:24 AM HOSPITAL EDUCATOR DIFFERENTIAL AUTO STAT 02/27/2022 11: 24 AM HOSPITAL EDUCATOR CBC WITH AUTO DIFFERENTIAL STAT 02/27/2022 11:24 AM HOSPITAL EDUCATOR APTT STAT 02/27/2022 11:24 AM HOSPITAL EDUCATOR PROTIME-INR STAT 02/27/2022 11:24 AM HOSPITAL EDUCATOR COMPREHENSIVE METABOLIC PANEL STAT 02/27/2022 11:24 AM HOSPITAL EDUCATOR URINALYSIS AND REFLEX TO MICROSCOPIC AND CULTURE STAT 02/27/2022 9:56 AM HOSPITAL EDUCATOR URINALYSIS, MICROSCOPIC ONLY STAT 02/27/2022 9:56 AM HOSPITAL EDUCATOR URINE CULTURE STAT 02/27/2022 9:56 AM HOSPITAL EDUCATOR documented in this encounter Results * eGFR (02/27/2022 11:24 AM HOSPITAL EDUCATOR) eGFR 96 mL/min/1. 73 m2 MARY JANE PHAM Comment: [...] was last reviewed 2021. Testing performed by: [address] [address] Blood 02/27/2022 11:2 4 AM HOSPITAL EDUCATOR 02/27/2022 11:30 AM HOSPITAL EDUCATOR Rosa MCKEON LAB BLOOD ORDERABLES Final Resu lt [facility] Department [place] [address] * (ABNORMAL) Differential, auto (02/27/2022 11:24 AM HOSPITAL EDUCATOR) Neutrophil abs 7.9(H) 1.7 - 6.5 K/cumm MARY JANE Comment:Testing performed by : [address] [address] Imm gran abs 0.1 0.0 - 0.1 K/cumm MARY JANE Comment:Testing performed by : [address] [address] Lymphocyte abs 2.4 0.8 - 3.3 K/cumm MARY JANE Comment:Testing performed by : [address] [address] Monocyte abs 0.7 0.2 - 0.8 K/cumm MARY JANE Comment:Testing performed by : [address] [address] Eosinophil abs 0.2 0.0 - 0.5 K/cumm MARY JANE Comment:Testing performed by : [address] [address] Basophil abs 0.0 0.0 - 0.1 K/cumm MARY JANE Comment:Testing performed by : [address] [address] Neutrophil pct 70.3 % MARY JANE Comment: Interpretive Data Percent cell count reference ranges are not reported, since discordance with absolute values may lead to misinterpretation of CBC data. Current Interpretive Data was last revised on 2017. Testing performed by: [address] [address] Imm gran pct 0.4 % MARY JANE Comment: Interpretive Data Percent cell count reference ranges are not reported, since discordance with absolute values may lead to misinterpretation of CBC data. Current Interpretive Data was last revised on 2017. Testing performed by: [address] [address] Lymphocyte pct 20.8 % [facility] Comment: Interpretive Data Percent cell count reference ranges are not reported, since discordance with absolute values may lead to misinterpretation of CBC data. Current Interpretive Data was last revised on 2017. Testing performed by: [address] [address] Monocyte pct 6.2 % [facility] Comment: Interpretive Data Percent cell count reference ranges are not reported, since discordance with absolute values may lead to misinterpretation of CBC data. Current Interpretive Data was last revised on 2017. Testing performed by: [address] [address] Eosinophil pct 2.0 % [facility] Comment: Interpretive Data Percent cell count reference ranges are not reported, since discordance with absolute values may lead to misinterpretation of CBC data. Current Interpretive Data was last revised on 2017. Testing performed by: [address] [address] Basophil pct 0.3 % [facility] Comment: Interpretive Data Percent cell count reference ranges are not reported, since discordance with absolute values may lead to misinterpretation of CBC data. Current Interpretive Data was last revised on 2017. Testing performed by: [address] [address] Blood 02/27/2022 11:2 4 AM HOSPITAL EDUCATOR 02/27/2022 11:30 AM HOSPITAL EDUCATOR us Rosa MCKEON LAB BLOOD ORDERABLES Final Resu lt MARY JANE [address] [facility] [place] [address] * Sepsis Lactate w/ Reflex (02/27/2022 11:24 AM HOSPITAL EDUCATOR) Sepsis Lactate 1.0 0.7 - 2.0 mmol/L MARY JANE Comment:Testing performed by : [address] [address] Blood 02/27/2022 11:2 4 AM HOSPITAL EDUCATOR 02/27/2022 11:30 AM HOSPITAL EDUCATOR [place] LAB BLOOD ORDERABLES Final Resu lt Performing Organization Address [facility] Co de Phone Number [address] [address] * aPTT (02/27/2022 11:24 AM HOSPITAL EDUCATOR) Pathologist [facility] aPTT 25 22 - 37 sec MARY JANE Comment: Interpretive data aPTT test has not been evaluated for monitoring heparin therapy. The anti-Xa is the preferred test. Current interpretive data was last revised on 2019. Testing performed by: [address] [address] Blood 02/27/2022 11:2 4 AM HOSPITAL EDUCATOR 02/27/2022 11:30 AM HOSPITAL EDUCATOR [place] LAB BLOOD ORDERABLES Final Resu lt Performing Organization Address [facility] Co de Phone Number [phone] [place] [address] * Protime-INR (02/27/2022 11:24 AM HOSPITAL EDUCATOR) PT 13.6 12.0 - 14.6 sec MARY JAEN Comment:Testing performed by : [address] [address] INR 1.0 0.9 - 1.2 MARY JANE Comment: Ref Range High Interpretive data Oral anticoagulant therapeutic ranges: Venous thromboembolism prophylaxis or treatment: 2.0-3.0 CARDIOLOGY Standard range: 2.0-3.0 High-intensity range: 2.5-3.5 Refer to indication-specific guidelines for appropriate target ranges for prosthetic heart valve replacement. Current interpretive data was last revised on 2019. Testing performed by: [address] [address] Blood 02/27/2022 11:2 4 AM HOSPITAL EDUCATOR 02/27/2022 11:30 AM HOSPITAL EDUCATOR Rosa MCKEON LAB BLOOD ORDERABLES Final Resu lt [facility] [address] [facility] Department [place] [address] * (ABNORMAL) Comprehensive metabolic panel (02/27/2022 11:24 AM HOSPITAL EDUCATOR) Sodium 136 135 - 145 mmol/L MARY JANE Comment:Testing performed by : [address] [address] Potassium, pl 4.3 3.3 - 4.9 mmol/L MARY JANE Comment:Testing performed by : [address] [address] Chloride 98 97 - 110 mmol/L MARY JANE Comment:Testing performed by : [address] [address] CO2 30 22 - 32 mmol/L MARY JANE Comment:Testing performed by : [address] [address] Anion gap 8 2 - 15 mmol/L MARY JANE Comment:Testing performed by : [address] [address] BUN 19 8 - 25 mg/dL MARY JANE Comment:Testing performed by : [address] [address] Creatinine 0.70 0.60 - 1.10 mg/dL MARY JANE Comment:Testing performed by : [address] [address] Glucose 300(H) 70 - 199 mg/dL MARY JANE Comment: [...] was last revised 2017. Testing performed by: [address] [address] Calcium 10.2 8.5 - 10.3 mg/dL MARY JANE Comment:Testing performed by : [address] [address] Bilirubin, total 0.5 0.1 - 1.2 mg/dL MARY JANE Comment:Testing performed by : [address] [address] Protein, pl 8.5 6.5 - 8.5 g/dL MARY JANE Comment:Testing performed by : [address] [address] Albumin 4.0 3.5 - 5.0 g/dL MARY JANE Comment:Testing performed by : [address] [address] Alk phos 110 40 - 130 Units/L MARY JANE Comment:Testing performed by : [address] [address] ALT 20 7 - 45 Units/L MARY JANE Comment:Testing performed by : [address] [address] AST 15 10 - 45 Units/L MARY JANE Comment:Testing performed by : [address] [address] Blood 02/27/2022 11:2 4 AM HOSPITAL EDUCATOR 02/27/2022 11:30 AM HOSPITAL EDUCATOR us Rosa MCKEON LAB BLOOD ORDERABLES Final Resu lt MARY JANE [address] Department [place] [address] * (ABNORMAL) CBC with auto differential (02/27/2022 11:24 AM HOSPITAL EDUCATOR) [facility] WBC 11.3(H) 3.8 - 9.9 K/cumm MARY JANE PHAM Comment:Testing performed by : [address] [address] Hgb 13.3 11.9 - 15.5 g/dL MARY JANE Comment:Testing performed by : [address], [address] Hct 42.7 35.6 - 45.5 % MARY JANE Comment:Testing performed by : [address] [address] Plt 308 150 - 400 K/cumm MARY JANE Comment:Testing performed by : [address] [address] MPV 9.4 9.1 - 12.3 fL MARY JANE Comment:Testing performed by : [address], [address] RBC 4.62 3.90 - 5.20 M/cumm MARY JANE Comment:Testing performed by : [address] [address] MCV 92.4 81.3 - 96.4 fL MARY JANE Comment:Testing performed by : [address] [address] MCH 28.8 27.1 - 33.3 pg MARY JANE Comment:Testing performed by : [address] [address] MCHC 31.1(L) 32.3 - 35.7 g/dL MARY JANE Comment:Testing performed by : [address], [address] RDW CV 13.9 11.1 - 14.9 % MARY JANE Comment:Testing performed by : [address] [address] RDW SD 47.3 35.7 - 48.1 fL MARY JANE Comment:Testing performed by : [address] [address] NRBC abs 0.00 0.00 - 0.01 K/cumm MARY JANE Comment:Testing performed by : [address] [address] Blood 02/27/2022 11:2 4 AM HOSPITAL EDUCATOR 02/27/2022 11:30 AM HOSPITAL EDUCATOR Rosa MCKOEN LAB BLOOD ORDERABLES Final Resu lt Performing Organization Address [facility] de Phone Number [address] [place] [address] * Urine culture Urine (02/27/2022 9:56 AM HOSPITAL EDUCATOR) Report Final Report: Less than 100,000 colonies/mL (clinically insignificant growth based on current clinical standards) MARY JANE Comment:Testing performed by : [facility], [address] [place]., [address] Organism (CLINICALLY INSIGNIFICANT GROWTH MARY JANE Urine 02/27/2022 9:56 AM HOSPITAL EDUCATOR 02/27/2022 2:14 PM HOSPITAL EDUCATOR Narrative MARY JANE - 02/28/2022 3:34 PM HOSPITAL EDUCATOR Urine culture reflexed based upon urinalysis results. Testing performed by [facility] ([phone]) Rosa MCKEON LAB MICROBIOLOGY - GENERAL ORDE RABLES Final Result Performing Organization Address [facility] de Phone Number [facility] [address] [facility] [place] [address] * (ABNORMAL) Urinalysis, microscopic only (02/27/2022 9:56 AM HOSPITAL EDUCATOR) WBC, ur >50(A) 0 - 5 /HPF MARY JANE Comment:Testing performed by : [address] [address] RBC, ur >50(A) 0 - 2 /HPF MARY JANE Comment:Testing performed by : [address] [address] Mucous, ur Present(A) MARY JANE PHAM Comment:Testing performed by : [address] [address] Hyaline casts, ur 6-10 0 - 10 /LPF MARY JANE PHAM Comment:Testing performed by : [address] [address] Culture Reflex Comment Reflex to urine culture will be performed. MARY JANE Comment:Testing performed by : [address] [address] Urine 02/27/2022 9:56 AM HOSPITAL EDUCATOR 02/27/2022 10:00 AM HOSPITAL EDUCATOR Rosa MCKEON LAB URINE ORDERABLES Final Resu lt MARY JANE [address] [facility] Department [place] [address] * (ABNORMAL) Urinalysis reflex to microscopic and culture Urine (02/27/2022 9:56 AM HOSPITAL EDUCATOR) Color, ur Yellow Yellow MARY JANE Comment:Testing performed by : [address] [address] Clarity, ur Cloudy(A) Clear MARY JANE Comment:Testing performed by : [address] [address] Specific gravity, ur 1.018 1.003 - 1.030 MARY JANE Comment:Testing performed by : [address] [address] pH, urine 5.0 MARY JANE Comment:Testing performed by : [address] [address] Protein, ur ql Negative Negative MARY JANE Comment:Testing performed by : [address] [address] Glucose, ur ql Negative Negative MARY JANE Comment:Testing performed by : [address] [address] Ketones, ur Negative Negative MARY JANE Comment:Testing performed by : [address] [address] Bilirubin, ur Negative Negative MARY JANE Comment:Testing performed by : [facility], [address] [place] [address], [place]., [address] Blood, ur 2+(A) Negative MARY JANE Comment:Testing performed by : [facility], [address] [place] [address], [place]., [address] Urobilinogen, ur <2.0 <2.0 mg/dL MARY JANE Comment:Testing performed by : [address] [address] Nitrite, ur Negative Negative MARY JANE Comment:Testing performed by : [address], [place]., [address] Leukocyte esterase, ur 4+(A) Negative MARY JANE Comment:Testing performed by : [address], [place]., [address] UA reflex comment Reflex to microscopic UA will be performed. MARY JANE Comment:Testing performed by : [address] [address] Urine 02/27/2022 9:56 AM HOSPITAL EDUCATOR 02/27/2022 10:00 AM HOSPITAL EDUCATOR Narrative MARY JANE - 02/27/2022 10:03 AM HOSPITAL EDUCATOR ?? Urine pH is affected by diet, medications, systemic acid-base disturbances, and renal tubular function. ??pH may affect urinary stone formation. ??For example, urine pH below 6.0 may help reduce the tendency for calcium phosphate stones and pH greater than 6.0 may reduce the tendency for uric acid stone formation. Source: [facility] [employer]. Last revised 05-04-2017 us Rosa MCKEON LAB MICROBIOLOGY - GENERAL ORDE REGAN Final Result MARY JANE [address] [facility] Department [place] [address] documented in this encounter Visit Diagnoses Diagnosis Acute cystitis with hematuria- Primary History of recurrent UTIs documented in this encounter Administered Medications Inactive Administered Medications - up to 3 most recent administrations Medication Order MAR Action Action Date Dose Rate Site diphenhydrAMINE (BENADRYL) tab/cap 25 mg 25 mg, oral, Once, On 02/27/22 at 1212, For 1 dose Given 02/27/2022 12:25 PM HOSPITAL EDUCATOR 25 mg nitrofurantoin monohydrate (MACROBID) capsule 100 mg 100 mg, oral, Once, On 02/27/22 at 1212, For 1 dose, Take with food, Indications: Urinary Tract/Genitourinary InfectionIndications:Urinary Tract/Genitourinary Infection Given 02/27/2022 12:25 PM HOSPITAL EDUCATOR 100 mg documented in this encounter Active and Recently Administered Medications Due to Daylight Saving Time, this section may contain times in both CDT and HOSPITAL EDUCATOR. Scheduled Medication Order 02/25/2022 02/26/2022 02/27/2022 diphenhydrAMINE (BENADRYL) tab/cap 25 mg (COMPLETED) 25 mg, oral, Once, On 02/27/22 at 1212, For 1 dose 1225 (Given - Provid er: Yolande Maloney RN) nitrofurantoin monohydrate (MACROBID) capsule 100 mg (COMPLETED) 100 mg, oral, Once, On 02/27/22 at 1212, For 1 dose, Take with food, Indications: Urinary Tract/Genitourinary Infection 1225 (Given - Provid er: Yolande Maloney RN) documented in this encounter Additional Health Concerns Infection Onset Date Last Indicated Resolved Time COVID: Recovered 02/10/2022 02/10/2022 06/10/2022 3:05 AM HOSPITAL EDUCATOR documented as of this encounter Care Teams Profiling Machine Setup Operator Relationship Specialty Start Date End Date Justen Gale MD [address] [id number] PCP - General 10/09/17 Liu Jerez MD Consulting Physician Gastroenterology 07/28/17 [place] [id number] [facility] [id number] [place] [address] Consulting Physician Pulmonary Disease 08/03/17 Khris Arthur MD [address] [facility] [address] [place] [address] Medical Oncologist/Recreational Assistant Medical Oncology 10/23/17 [place] [id number] [facility] [address] [place] [address] Surgeon Orthopedic Surgery 10/23/17 [place] [id number] [facility] [address] [place] [address] Consulting Physician Pain Management 10/23/17 [place] [id number] [facility] [address] [place] [address] Referring Physician General Surgery 01/26/18 [place] [id number] [facility] [address] [place] [address] Consulting Physician Neurology 01/26/18 documented as of this encounter
--- OUTSIDE RECORDS SUMMARY | 2024-04-26 04:20 | XMS_ITS | Encounter Summary ---
Author Organization [facility] Healthcare Address [address] [place] [address] Care Team Providers Care Riveter P[employer]atic Name Role Phone Liu Jerez MD Unavailable Albert Corbin MD Unavailable Justen Gale MD Primary Care Provider Khris Arthur MD Unavailable [phone] Ko Melendez MD Unavailable John Paul Moyer MD Unavailable Annel Rod MD Unavailable Anali MARSHALL MD, Carlos M. Unavailable Reason for Visit * Reason Comments Urinary Frequency Encounter Details Date Type Department Care Team (Late st Contact Info) Description 06/07/2022 1:00 PM TRUSS DRIVER HELPER - 06/07/2022 1:15 PM [facility] Emergency [facility] Emergency Department [address] [place] [id number] Frequent urination (Primary Dx) Discharge Disposition: Discharge to home [...] often do you attend chur ch or methodist services? Never 02/11/2022 Do you belong to [...] in a fpc (including now)? 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 Female 12:24 AM TRUSS DRIVER HELPER Gender Identity Not on file Sexual Orientation Not on file documented as of this encounter Last Filed Vital Signs Vital Sign Reading Time Taken Comments Blood Pressure 174/102 06/07/2022 1:05 PM TRUSS DRIVER HELPER Pulse 81 06/07/2022 1:05 PM TRUSS DRIVER HELPER Temperature 36.4 ??C (97.5 ??F) 06/07/2022 11:[address] Respiratory Rate 20 06/07/2022 11:06 AM TRUSS DRIVER HELPER Oxygen Saturation 98% 06/07/2022 1:05 PM TRUSS DRIVER HELPER Inhaled Oxygen Concentration - - Weight 129.7 kg (285 lb 15 oz) 06/07/2022 11:06 AM TRUSS DRIVER HELPER Height 154.9 cm (5' 1 ) 06/07/2022 11:06 AM TRUSS DRIVER HELPER Body Mass Index 54.03 06/07/2022 11:06 AM TRUSS DRIVER HELPER documented in this encounter Discharge Instructions * Discharge Instructions* Marin Tate PA - 06/07/2022 1:07 PM TRUSS DRIVER HELPER As discussed, please follow up with your Urologist tomorrow. Follow-up as recommended is mandatory.You have received emergency care only at your [...] testing, cultures, final x-ray reports which may nothave been available during the time of the visit. Return immediately for any new symptoms, worsening of symptoms, or persistent symptoms S DRIVER HELPER * Attachments The following attachments cannot be sent through Care Everywhere. * Polyuria (General Information) (Thai) documented in this encounter Medications at Time of Discharge albuterol HFA (PROVENTIL HFA,VENTOLIN HFA,PROAIR HFA) 90 mcg/actuation inhaler Inhale 2 puffs every 6 (six) hours as needed for wheezing or shortness of breath 1 BD Ultra-Fine Short Pen Needle 31 gauge x 5/16 needle USE 6 TIMES DAILY DIRECTED 2 blood glucose diagnostic (Naroomi Ultra Test) strip 4 (four) times a [...] total) by mouth nightly 90 tablet 3 06/20/19 23 HYDROcodone-acetamin ophen (NORCO) 10-325 mg per [...] in this encounter ED Notes * Marin Tate PA - 06/07/2022 1:07 PM CST CHIEF COMPLAINT: Chief Complaint Patient presents with Urinary Frequency HPI 1:07 PM Karly Marques is a 67 y.o. female presenting to the ED with c/c of persistent irritative voiding sx. Pt reports frequent urination and pelvic pressure just prior to void (resolves after void) that has been ongoing for a long time. Pt also reporting pain in her lower back. No fever. Appointment with urology tomorrow. History provided by patient PCP: Justen Gale [...] MEDICATIONS GIVEN IN THE ED Medications ondansetron (ZOFRAN) injection 4 mg (4 mg intravenous Given 06/07/22 1143) CURRENT HOME MEDICATIONS No current facility-administered medications for this encounter. Current Outpatient Medications: albuterol HFA (PROVENTIL HFA,VENTOLIN HFA,PROAIR HFA) 90 mcg/actuation inhaler, INHALE 2 PUFFS INTOLUNGS BY MOUTH EVERY 4 HOURS NEEDED FOR WHEEZING OR SHORTNESS OF BREATH, Disp: , Rfl: amitriptyline (ELAVIL) 25 mg tablet, Take 25 mg by mouth nightly, Disp: , Rfl: BD Ultra-Fine Short Pen Needle 31 gauge x 5/16 needle, USE 6 TIMES DAILY DIRECTED, Disp: , Rfl: blood glucose diagnostic (OneTouch Ultra Test) strip, 4 (four) times a day, Disp: , Rfl: exemestane (AROMASIN) 25 mg tablet, Take 1 tablet (25 mg total) by mouth nightly, Disp: 90 tablet, Rfl: 0 HYDROcodone-acetaminophen (NORCO) 7.5-325 mg per tablet, Take 1 tablet by mouth every 6 (six) hours, Disp: , Rfl: insulin glargine (LANTUS) 100 unit/mL injection, Inject [...] mouth every 4 (four) hours as needed (sorethroat), Disp: 200 mL, Rfl: 0 meclizine (ANTIVERT) 25 mg tablet, Take 1 tablet (25 mg total) by mouth 3 (three) times a day as needed for dizziness, Disp: 30 tablet, Rfl: 0 mupirocin (BACTROBAN) 2 % ointment, mupirocin 2 % topical ointment, Disp: , Rfl: naloxone (NARCAN) 4 mg/actuation spray,non-aerosol, CALL 911. SPR CONTENTS OF ONE SPRAYER (0.1ML) INTO ONE NOSTRIL. REPEAT IN 2-3 MIN IF SYMPTOMS OF OPIOID EMERGENCY PERSIST, ALTERNATE NOSTRILS, Disp: , Rfl: nystatin powder, Apply 1 application topically daily, Disp: , Rfl: ondansetron (ZOFRAN) 4 mg tablet, Take 1 tablet (4 mg total) by mouth every 6 (six) hours, Disp: 12tablet, Rfl: 0 ondansetron ODT (ZOFRAN-ODT) 4 mg disintegrating tablet, Take 1 tablet (4 mg total) by mouth every 8 (eight) hours as needed for nausea or vomiting, Disp: 20 tablet, Rfl: 0 oxybutynin (DITROPAN) 5 mg tablet, take 1 tablet by oral route every day, Disp: 0, Rfl: [address] (PROTONIX) 40 mg EC tablet, Take 1 tablet (40 mg total) by mouth 2 (two) times a day, Disp: 60 tablet, Rfl: 0 rivaroxaban (Xarelto) 20 mg tablet, Take 1 tablet (20 mg total) by mouth daily, Disp: 30 tablet, Rfl: 3 rOPINIRole (REQUIP) 5 mg tablet, Take 5 mg by mouth nightly, Disp: , Rfl: ALLERGIES Allergies Allergen Reactions Ceftriaxone Anaphylaxis R Ceftriaxone Sodium Shortness of breath Cephalosporins Anaphylaxis Lorazepam Unknown Aggrevates restless leg syndrome Ciprofloxacin Rash Latex Rash Levofloxacin Hives and Unknown Lisinopril Swelling Meropenem Rash Piperacillin-Tazobactam Rash Metoclopramide Hcl Unknown Reslizumab [...] EXAM TRIAGE VITAL SIGNS: ED Triage Vitals [06/07/22 1106] Temp Pulse Resp BP SpO2 36.4 ??C (97.5 ??F) 84 20 (!) 182/100 99 % Temp src Heart Rate Source Patient Position BP Location FiO2 (%) -- -- -- -- -- Height Height Method Weight Weight Method 1.549 m (5' 1 ) Stated 129.7 kg (285 lb 15 oz) Standing scale Physical Exam Vitals and nursing note reviewed. Constitutional: General: She is not in acute distress. Appearance: Normal appearance. She is not ill-appearing or toxic-appearing. HENT: Head: Normocephalic and atraumatic. Right Ear: [...] gallop. Pulmonary: Effort: Pulmonary effort is normal. Breath sounds: Normal breath sounds. Abdominal: General: Bowel sounds are normal. There is no distension. Palpations: Abdomen is soft. There is no mass. Tenderness: There is no abdominal tenderness. There is no guarding. Musculoskeletal: General: No deformity. Normal range of motion. Skin: General: Skin is warm and dry. Capillary Refill: Capillary refill takes less than 2 seconds. Neurological: General: No focal deficit present. Mental Status: She is alert and oriented to person, place, and time. Psychiatric: Mood and Affect: Mood normal. LABS Labs Reviewed URINALYSIS AND REFLEX TO MICROSCOPIC AND CULTURE - Abnormal Result Value Color, ur Yellow Clarity, ur Clear Specific gravity, ur 1.020 pH, urine 6.0 Protein, ur ql Negative [...] tendency for uric acid stone formation. Source: [facility] [email or web address].Last revised 05-04-2017 CBC WITH AUTO DIFFERENTIAL - Abnormal WBC 10.0 (*) Hgb 14.2 Hct 44.5 Plt 296 MPV 9.4 RBC 4.95 MCV 89.9 MCH 28.7 MCHC 31.9 (*) RDW CV 14.1 RDW SD 46.1 NRBC abs 0.00 COMPREHENSIVE METABOLIC PANEL - Abnormal Sodium 135 Potassium, pl 3.9 Chloride 96 (*) CO2 28 Anion gap 11 BUN 14 Creatinine 0.70 Glucose 162 Calcium 10.3 Bilirubin, total 0.7 Protein, pl 9.0 (*) Albumin 4.3 Alk phos 116 ALT 24 AST 21 DIFFERENTIAL AUTO - Abnormal Neutrophil abs 7.0 (*) Imm gran abs 0.0 Lymphocyte abs 2.1 Monocyte abs 0.6 Eosinophil abs 0.2 Basophil abs 0.0 Neutrophil pct 70.1 Imm gran pct 0.4 Lymphocyte pct 21.2 Monocyte pct 5.9 Eosinophil pct 2.2 Basophil pct 0.2 URINALYSIS, MICROSCOPIC ONLY - Abnormal WBC, ur 0-5 RBC, ur 3-5 (*) Epithelial cells, squamous, ur 1-5 Mucous, ur Present (*) Culture Reflex Comment Value: Reflex conditions for urine culture (WBC >10) not met. INFLUENZA A/B, RSV, AND COVID-19 PCR COVID-19 RNA Negative Influenza A RNA Negative Influenza B RNA Negative RSV RNA Negative Narrative: Is the Patient experiencing symptoms consistent with COVID?->Yes Date of Symptom Onset->06/06/22 Reason for testing?->Symptomatic LIPASE Lipase 31 EGFR eGFR [address] Head WO Contrast Result Date: 05/14/2022 Narrative: EXAM DESCRIPTION: CT HEAD WO CONTRAST REASON FOR STUDY: Dizziness, persistent/recurrent,cardiac or vascular cause suspected, Headache, chronic, new features or increased frequency been ngoc new medication for overactive bladder for the [...] matter differentiation is normal. Normal size and morphology of the ventricular system. No acute intraventricular [...] R Johnson M.D. AT: AT Report ID: [id number] Reading Location: [place] [address] ED COURSE/MEDICAL DECISION MAKING Differential diagnosis included but not limited to UTI, cystocele, bladder prolapse, vaginal prolapse, genitourinary syndrome of menopause, interstitial cystitis Patient's medical records were reviewed. Pt presented with persistent urinary symptoms, seen in ED previously for same. Has an appointment with urology tomorrow. Workup overall reassuring. Trace blood in urine, no evidence of infection. Patient to follow up with Urology. Patient afebrile, soft nontender abdomen. No concerns for further infection or pathology at this time. Procedures FINAL IMPRESSION Frequent urination DISPOSITION: Home All findings were discussed with patient. Pt agreeable with plan. Non toxic appearing, vitals stable. Patient stable for discharge home. Given return to ER precautions Close outpatient follow-up with a low threshold to return has been mandated , concerning symptoms have been emphasized in detail, and this patient expresses understanding PATIENT INSTRUCTED TO FOLLOW UP Urology at [facility] Call in 1 day DISCHARGE MEDICATIONS Your medication list CONTINUE taking [...] by mouth nightly exemestane 25 mg tablet Commonly known as: AROMASIN Take 1 tablet (25 mg total) by mouth nightly HYDROcodone-acetaminophen 7.5-325 mg per tablet Commonly known [...] 3 (three) times a day before meals. lidocaine viscous 2 % solution Commonly known as: XYLOCAINE Take 5-10 mL by mouth every 4 (four) hours as needed (sorethroat) meclizine 25 mg tablet Commonly known as: ANTIVERT Take 1 tablet (25 mg total) by mouth 3 (three) times a day as needed for dizziness mupirocin 2 % ointment Commonly known as: [...] glucose diagnostic 4 (four) times a day oxybutynin 5 mg tablet Commonly known as: DITROPAN take 1 tablet by oral route every day pantoprazole DR 40 mg EC tablet Commonly known as: PROTONIX Take 1 tablet (40 mg total) by mouth 2 (two) times a day rivaroxaban 20 mg tablet Commonly known as: Xarelto Take 1 tablet (20 mg total) by mouth daily rOPINIRole 5 mg tablet Commonly known as: REQUIP Take 5 mg by mouth nightly This examination was transcribed using the [employer] voice recognition system without human flat bed operator. In an effort to expedite patient care, this report has not been adjusted for typographical, grammatical, and syntax by a trained medical equipment technician. Marin Tate PA 06/07/22 1326 Cosigned by Lior Bowen MD at 06/09/2022 12:50 AM TRUSS DRIVER HELPER S DRIVER HELPER S DRIVER HELPER Associated attestation - Lior Bowen MD - 06/09/2022 12:50 AM TRUSS DRIVER HELPER ED Attestation I did not see this patient. However, I was personally available for consultation in the ED for thispatient if the Advanced Practice Provider (ERIC) needed any assistance. The ERIC evaluated the patient independently and completed their own examination, documentation, and disposition. * Donna Alexandra RN - 06/07/2022 11:00 AM CST Pt c/o frequent urination, pressure in the lower abd, chills, N/V, decreased appetite, LBP and shakiness. Pt states she has been battling frequent UTI's for approx 8 months and is under the care of a[facility]rologist at [facility]. Pt has appt with them tomorrow. Pt also feeling dizzy. Pt SOB. S DRIVER HELPER S DRIVER HELPER documented in this encounter Plan of Treatment Not on file documented as of this encounter Procedures Procedure Name Priority Date/Time Associated Diagnosis Comments EGFR STAT 06/07/2022 11:26 AM TRUSS DRIVER HELPER DIFFERENTIAL AUTO STAT 06/07/2022 11: 26 AM TRUSS DRIVER HELPER CBC WITH AUTO DIFFERENTIAL STAT 06/07/2022 11:26 AM TRUSS DRIVER HELPER LIPASE STAT 06/07/2022 11:26 AM TRUSS DRIVER HELPER COMPREHENSIVE METABOLIC PANEL STAT 06/07/2022 11:26 AM TRUSS DRIVER HELPER INFLUENZA A/B, RSV, AND COVID-19 PCR Routine 06/07/2022 11:24 AM TRUSS DRIVER HELPER URINALYSIS AND REFLEX TO MICROSCOPIC AND CULTURE STAT 06/07/2022 11:24 AM TRUSS DRIVER HELPER URINALYSIS, MICROSCOPIC ONLY STAT 06/07/2022 11:24 AM TRUSS DRIVER HELPER documented in this encounter Results * eGFR (06/07/2022 11:26 AM TRUSS DRIVER HELPER) Pathologist [facility] [place] eGFR 95 mL/min/1. 73 m2 MARY JANE [...] was last reviewed 2021. Testing performed by: [address] [address] Blood 06/07/2022 11:2 6 AM TRUSS DRIVER HELPER 06/07/2022 11:43 AM TRUSS DRIVER HELPER us Lior Bowen MD LAB BLOOD ORDERABLES Deann bowman Result MARY JANE [facility] Department [place] [address] * (ABNORMAL) Differential, auto (06/07/2022 11:26 AM TRUSS DRIVER HELPER) Neutrophil abs 7.0(H) 1.7 - 6.5 K/cumm MARY JANE Comment:Testing performed by : [address] [address] Imm gran abs 0.0 0.0 - 0.1 K/cumm MARY JANE Comment:Testing performed by : [address] [address] Lymphocyte abs 2.1 0.8 - 3.3 K/cumm MARY JANE Comment:Testing performed by : [address] [address] Monocyte abs 0.6 0.2 - 0.8 K/cumm MARY JANE Comment:Testing performed by : [address] [address] Eosinophil abs 0.2 0.0 - 0.5 K/cumm MARY JANE Comment:Testing performed by : [address] [address] Basophil abs 0.0 0.0 - 0.1 K/cumm MARY JANE Comment:Testing performed by : [address] [address] Neutrophil pct 70.1 % [facility] Comment: Interpretive Data Percent cell count reference ranges are not reported, since discordance with absolute values may lead to misinterpretation of CBC data. Current Interpretive Data was last revised on 2017. Testing performed by: [address] [address] Imm gran pct 0.4 % [facility] Comment: Interpretive Data Percent cell count reference ranges are not reported, since discordance with absolute values may lead to misinterpretation of CBC data. Current Interpretive Data was last revised on 2017. Testing performed by: [address] [address] Lymphocyte pct 21.2 % [facility] Comment: Interpretive Data Percent cell count reference ranges are not reported, since discordance with absolute values may lead to misinterpretation of CBC data. Current Interpretive Data was last revised on 2017. Testing performed by: [address] [address] Monocyte pct 5.9 % [facility] Comment: Interpretive Data Percent cell count reference ranges are not reported, since discordance with absolute values may lead to misinterpretation of CBC data. Current Interpretive Data was last revised on 2017. Testing performed by: [address] [address] Eosinophil pct 2.2 % [facility] Comment: Interpretive Data Percent cell count reference ranges are not reported, since discordance with absolute values may lead to misinterpretation of CBC data. Current Interpretive Data was last revised on 2017. Testing performed by: [address] [address] Basophil pct 0.2 % [facility] Comment: Interpretive Data Percent cell count reference ranges are not reported, since discordance with absolute values may lead to misinterpretation of CBC data. Current Interpretive Data was last revised on 2017. Testing performed by: [address] [address] Blood 06/07/2022 11:2 6 AM TRUSS DRIVER HELPER 06/07/2022 11:43 AM TRUSS DRIVER HELPER Lior Bowen MD LAB BLOOD ORDERABLES Deann l Result Performing Organization Address City/[facility] Co de Phone Number [address] [email or web address] [address] * Lipase (06/07/2022 11:26 AM TRUSS DRIVER HELPER) Lipase 31 10 - 99 Units/L MARY JANE Comment:Testing performed by : [address] [address] Blood (Blood, Venous) 06/07/2022 11:26 AM TRUSS DRIVER HELPER 06/07/2022 11:43 AM TRUSS DRIVER HELPER Lior Bowen MD LAB BLOOD ORDERABLES Deann l Result Performing Organization Address [facility] de Phone Number [address] [address] * (ABNORMAL) Comprehensive metabolic panel (06/07/2022 11:26 AM TRUSS DRIVER HELPER) Pathologist [facility] [place] Sodium 135 135 - 145 mmol/L MARY JANE Comment:Testing performed by : [address] [address] Potassium, pl 3.9 3.3 - 4.9 mmol/L MARY JANE Comment:Testing performed by : [address] [address] Chloride 96(L) 97 - 110 mmol/L MARY JANE Comment:Testing performed by : [address] [address] CO2 28 22 - 32 mmol/L MARY JANE Comment:Testing performed by : [address] [address] Anion gap 11 2 - 15 mmol/L MARY JANE Comment:Testing performed by : [address] [address] BUN 14 8 - 25 mg/dL MARY JANE Comment:Testing performed by : [address] [address] Creatinine 0.70 0.60 - 1.10 mg/dL MARY JANE Comment:Testing performed by : [address] [address] Glucose 162 70 - 199 mg/dL MARY JANE Comment: [...] was last revised 2022. Testing performed by: [address] [address] Calcium 10.3 8.5 - 10.3 mg/dL MARY JANE Comment:Testing performed by : [address] [address] Bilirubin, total 0.7 0.1 - 1.2 mg/dL MARY JANE Comment:Testing performed by : [address] [address] Protein, pl 9.0(H) 6.5 - 8.5 g/dL MARY JANE Comment:Testing performed by : [address] [address] Albumin 4.3 3.5 - 5.0 g/dL MARY JANE Comment:Testing performed by : [address] [address] Alk phos 116 40 - 130 Units/L MARY JANE Comment:Testing performed by : [address] [address] ALT 24 7 - 45 Units/L MARY JANE Comment:Testing performed by : [address] [address] AST 21 10 - 45 Units/L MARY JANE Comment:Testing performed by : [address] [address] Blood 06/07/2022 11:2 6 AM TRUSS DRIVER HELPER 06/07/2022 11:43 AM TRUSS DRIVER HELPER us Lior Bowen MD LAB BLOOD ORDERABLES Deann colby Result MARY JANE [address] [facility] Department [place] [address] * (ABNORMAL) CBC with auto differential (06/07/2022 11:26 AM TRUSS DRIVER HELPER) [facility] WBC 10.0(H) 3.8 - 9.9 K/cumm MARY JANE Comment:Testing performed by : [address] [address] Hgb 14.2 11.9 - 15.5 g/dL MARY JANE Comment:Testing performed by : [address] [address] Hct 44.5 35.6 - 45.5 % MARY JANE Comment:Testing performed by : [address] [address] Plt 296 150 - 400 K/cumm MARY JANE Comment:Testing performed by : [address] [address] MPV 9.4 9.1 - 12.3 fL MARY JANE Comment:Testing performed by : [address] [address] RBC 4.95 3.90 - 5.20 M/cumm MARY JANE Comment:Testing performed by : [address] [address] MCV 89.9 81.3 - 96.4 fL MARY JANE Comment:Testing performed by : [address] [address] MCH 28.7 27.1 - 33.3 pg MARY JANE PHAM Comment:Testing performed by : [address] [address] MCHC 31.9(L) 32.3 - 35.7 g/dL MARY JANE Comment:Testing performed by : [address], [address] RDW CV 14.1 11.1 - 14.9 % MARY JANE PHAM Comment:Testing performed by : [address] [address] RDW SD 46.1 35.7 - 48.1 fL MARY JANE PHAM Comment:Testing performed by : [address] [address] NRBC abs 0.00 0.00 - 0.01 K/cumm MARY JANE PHAM Comment:Testing performed by : [address] [address] Blood (Blood, Venous) 06/07/2022 11:26 AM TRUSS DRIVER HELPER 06/07/2022 11:43 AM TRUSS DRIVER HELPER us Lior Bowen MD LAB BLOOD ORDERABLES Deann bowman Result MARY JANE [address] [facility] Department [place] [address] * (ABNORMAL) Urinalysis, microscopic only (06/07/2022 11:24 AM TRUSS DRIVER HELPER) WBC, ur 0-5 0 - 5 /HPF MARY JANE PHAM Comment:Testing performed by : [address] [address] RBC, ur 3-5(A) 0 - 2 /HPF MARY JANE PHAM Comment:Testing performed by : [address] [address] Epithelial cells, squamous, ur 1-5 0 - 5 /HPF MARY JANE Comment:Testing performed by : [address] [address] Mucous, ur Present(A) MARY JANE Comment:Testing performed by : [address] [address] Culture Reflex Comment Reflex conditions for urine culture (WBC >10) not met. MARY JANE PHAM Comment:Testing performed by : [address] [address] Urine 06/07/2022 11:2 4 AM TRUSS DRIVER HELPER 06/07/2022 11:43 AM TRUSS DRIVER HELPER Lior Bowen MD LAB URINE ORDERABLES Deann l Result Performing Organization Address City/[facility]/ZIP Co de Phone Number [address] [employer] [email or web address] [address] * Influenza A/B, RSV, and COVID-19 PCR Nasopharyngeal (06/07/2022 11:24 AM TRUSS DRIVER HELPER) COVID-19 RNA Negative Negative MARY JANE Comment:Testing performed by : [address] [address] Influenza A RNA Negative Negative [facility] Comment:Testing performed by : [address] [address] Influenza B RNA Negative Negative [facility] Comment:Testing performed by : [address] [address] RSV RNA Negative Negative [facility] Comment: Interpretive data: This test is performed using the [employer] Xpress CoV-2/Flu/RSV plus assay. This is a [...] Data last revised 2021. Testing performed by: [address] [address] Nasopharyngeal 06/07/2022 11 :24 AM TRUSS DRIVER HELPER 06/07/2022 11:43 AM TRUSS DRIVER HELPER Narrative [facility] - 06/07/2022 12:26 PM TRUSS DRIVER HELPER Is the Patient experiencing symptoms consistent with COVID?->Yes Date of Symptom Onset->06/06/22 Reason for testing?->Symptomatic Lior Bowen MD LAB MICROBIOLOGY - GENERA L ORDERABLES Final Result Performing Organization Address City/[facility]/ZIP Co de Phone Number [address] Department of [email or web address] [place], [place] [id number] * (ABNORMAL) Urinalysis reflex to microscopic and culture Urine (06/07/2022 11:24 AM TRUSS DRIVER HELPER) Color, ur Yellow Yellow MARY JANE Comment:Testing performed by : [address] [address] Clarity, ur Clear Clear MARY JANE Comment:Testing performed by : [address] [address] Specific gravity, ur 1.020 1.003 - 1.030 MARY JANE Comment:Testing performed by : [address], [place]., [address] pH, urine 6.0 MARY JANE Comment:Testing performed by : [address] [address] Protein, ur ql Negative Negative MARY JANE Comment:Testing performed by : [address] [address] Glucose, ur ql Negative Negative MARY JANE Comment:Testing performed by : [address], [place]., [address] Ketones, ur Negative Negative MARY JANE Comment:Testing performed by : [address] [address] Bilirubin, ur Negative Negative MARY JANE Comment:Testing performed by : [address] [address] Blood, ur Trace(A) Negative MARY JANE Comment:Testing performed by : [address] [address] Urobilinogen, ur 0.2 <2.0 mg/dL MARY JANE Comment:Testing performed by : [address] [address] Nitrite, ur Negative Negative MARY JANE Comment:Testing performed by : [address] [address] Leukocyte esterase, ur Negative Negative MARY JANE Comment:Testing performed by : [address] [address] UA reflex comment Reflex to microscopic UA will be performed. MARY JANE Comment:Testing performed by : [address] [address] Urine 06/07/2022 11:2 4 AM TRUSS DRIVER HELPER 06/07/2022 11:43 AM TRUSS DRIVER HELPER Narrative MARY JANE PHMA - 06/07/2022 11:55 AM TRUSS DRIVER HELPER ?? Urine pH is affected by diet, medications, systemic acid-base disturbances, and renal tubular function. ??pH may affect urinary stone formation. ??For example, urine pH below 6.0 may help reduce the tendency for calcium phosphate stones and pH greater than 6.0 may reduce the tendency for uric acid stone formation. Source: [employer]. Last revised 05-04-2017 us Lior Bowen MD LAB MICROBIOLOGY - GENERA L ORDERABLES Final Result MARY JANE PHAM [id number] [facility] Department [place] [address] documented in this encounter Visit Diagnoses Diagnosis Frequent urination- Primary Urinary frequency documented in this encounter Administered Medications Inactive Administered Medications - up to 3 most recent administrations Medication Order MAR Action Action Date Dose Rate Site ondansetron (ZOFRAN) injection 4 mg 4 mg, intravenous, Administer over 2 Minutes, Once, On Mon06/07/22 at 1121, For 1 dose Given 06/07/2022 11:43 AM TRUSS DRIVER HELPER 4 mg documented in this encounter Active and Recently Administered Medications Times are shown in TRUSS DRIVER HELPER. 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 [address] [place] [address] Consulting Physician Pulmonary Disease 08/03/17 Khris Arthur MD [address] [facility] [address] [place] [address] Medical Oncologist/State Manager Medical Oncology 10/23/[address] [place] [address] [facility] [address] [place] [address] Surgeon Orthopedic Surgery 10/23/17 [place] [address] [facility] [address] [place] [address] Consulting Physician Pain Management 10/23/17 [place] [address] [facility] [address] [place] [address] Referring Physician General Surgery 01/26/18 [place] [address] [facility] [address] [place] [address] Consulting Physician Neurology 01/26/18 documented as of this encounter
--- OUTSIDE RECORDS SUMMARY | 2024-04-26 04:20 | XMS_ITS | Encounter Summary ---
Author Organization [facility] Address [address] [place] [address] Phone Care Team Providers Care Mottler Operator Name Role Phone Liu Jerez MD Unavailable Albert Corbin MD Unavailable Justen Gale MD Primary Care Provider Khris Arthur MD Unavailable [phone] Ko Melendez MD Unavailable John Paul Moyer MD Unavailable Annel Rod MD Unavailable Anali MARSHALL MD, Carlos M. Unavailable Encounter Details Date Type Department Care Team (Late st Contact Info) Description 03/01/2022 Orders Only [facility] Oncology [address] [facility] [address] Medicine 7th [place] [address] [place] [address] Jeanine Ba, KHADRAA Other pulmonary embolism without acute cor pulmonale, [...] week 02/11/2022 How often do you attend [facility] or scientology services? 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 as of this encounter Care Teams Mottler Operator Relationship Specialty Start Date End Date Justen Gale MD [address] [address] PCP - General 10/09/17 Liu Jerez MD Consulting Physician Gastroenterology 07/28/17 [place] [address] [facility] [address] [place] [address] Consulting Physician Pulmonary Disease 08/03/17 Khris Arthur MD [address] [facility] [address] [place] [address] Medical Oncologist/Licensed Esthetician Medical Oncology 10/23/17 [place] [address] [facility] [address] [place] [address] Surgeon Orthopedic Surgery 10/23/17 [place] [address] [address] Consulting Physician Pain Management 10/23/17 [place] [address] [facility] [address] [place] [address] Referring Physician General Surgery 01/26/18 [place] [address] [facility] [address] [place] [address] Consulting Physician Neurology 01/26/18 documented as of this encounter
--- OUTSIDE RECORDS SUMMARY | 2024-04-26 04:20 | XMS_ITS | Encounter Summary ---
Author Organization [facility] Healthcare Address [address] [place] [address] Care Team Providers Care Manager Telemetry Name Role Phone Liu Jerez MD Unavailable [phone] Albert Crobin MD Unavailable Justen Gale MD Primary Care Provider Khris Arthur MD Unavailable [phone] Ko Melendez MD Unavailable John Paul Moyer MD Unavailable Annel Rod MD Unavailable Anali MARSHALL MD, Carlos M. Unavailable Reason for Visit * Reason Comments Coagulation Disorder Encounter Details Date Type Department Care Team (Late st Contact Info) Description 07/05/2022 10:17 PM CDT - 07/06/2022 2:01 AM CDT Emergency [facility] Emergency Department [address] [place] [address] Kirit Everett DO [facility] [place] [address] Epistaxis (Primary Dx); Chronic anticoagulation Discharge Disposition: Discharge to home or self [...] How often do you attend chur or sikhism services? Never 02/11/2022 Do you belong to any clubs o r organizations such as zoroastrian groups, unions, fraternal or athletic groups, or [...] on file Legal Sex Female 12:24 AM [employer]URNIT[employer] Gender Identity Not on file Sexual Orientation Not on file documented as of this encounter Last Filed Vital Signs Vital Sign Reading Time Taken Comments Blood Pressure 145/93 07/06/2022 1:55 AM CDT Pulse 83 07/06/2022 1:55 AM CDT Temperature 36.8 ??C (98.3 ??F) 07/05/2022 8:15 PM CD T Respiratory Rate 20 07/06/2022 1:55 AM CDT Oxygen Saturation 95% 07/06/2022 1:55 AM CDT Inhaled Oxygen Concentration - - Weight 131.8 kg (290 lb 9.1 oz) 07/05/2022 8:15 PM CDT Height 154.9 cm (5' 0.98 ) 07/05/2022 8:15 PM CD T Body Mass Index 54.93 07/05/2022 8:15 PM CDT documented in this encounter Discharge Instructions * Discharge Instructions* Kirit Everett DO - 07/06/2022 1:52 AM CDT Use Tompkins nasal spray 2 sprays 4 times per day * Attachments The following attachments cannot be sent through Care Everywhere. * Nosebleed (AfterCare(R) Instructions(ER/ED)) (Armenian) documented in this encounter Medications at Time of Discharge albuterol HFA (PROVENTIL HFA,VENTOLIN HFA,PROAIR HFA) 90 mcg/actuation inhaler Inhale 2 puffs every 6 (six) hours as needed for wheezing or shortness of breath 1 BD Ultra-Fine Short Pen Needle 31 gauge x 5/16 needle USE 6 TIMES DAILY DIRECTED 2 blood glucose diagnostic ([employer] Ultra Test) strip 4 (four) times a [...] mouth nightly 90 tablet 3 12/15/19 23 HYDROcodone-acetamin ophen (NORCO) 10-325 mg per [...] s Discharge to home or self care D/C WITH INSTRUCTIONS, RX. NADN, AAOX3, VSS, TO POV VIA W/C AT TIME OF DEPARTURE FROM [facility] ED. documented in this encounter ED Notes * Kirit Everett, - 07/06/2022 1:35 AM CDT HPI Chief Complaint Patient presents with Coagulation Disorder HPI Karly Marques is a 67 y.o. female w/ PMHx including cancer, CHF, DM, DVT, PE, and HTN presenting to the ED w/ c/o coagulation disorder. 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 Pt was reportedly seen at an urgent care before arrival to ED. Pt states for the last few days she's felt nauseated, claiming a feint feeling. Pt notes of nosebleeds and coughing up blood over the last few days. Pt states this worsened prior to arrival to ED. Pt claims her stomach feels bloated. Pt notes of a taste ofblood in her mouth. Pt endorses headache. Patient History: Past Medical History: Diagnosis Date [...] gauge x 5/16 needle blood glucose diagnostic ([employer] Ultra Test) strip exemestane (AROMASIN) 25 mg [...] disintegrating tablet oxybutynin (DITROPAN) [address] (PROTONIX) 40 mg EC tablet rivaroxaban (Xarelto) 20 mg tablet rOPINIRole (REQUIP) 5 mg tablet Review of Systems Review of Systems Constitutional: Negative for chills and fever. HENT: Positive for nosebleeds. Negative for ear pain and sore throat. Eyes: Negative for pain and visual disturbance. Respiratory: Negative for cough and shortness of breath. Cardiovascular: Negative for chest pain and palpitations. Gastrointestinal: Positive for nausea. Negative for abdominal pain and vomiting. Genitourinary: Negative for dysuria and hematuria. Musculoskeletal: Negative for arthralgias and back pain. Skin: Negative for color change and rash. Neurological: Positive for headaches. Negative for seizures and syncope. All other systems reviewed and are negative. All systems reviewed and are negative or noncontributory for this patients presentation today otherthan as stated in the HPI . Physical Exam ED Triage Vitals Temp Pulse Resp BP SpO2 07/05/22201407/05/22201407/05/22201407/05/22201407/05/222014 36.8 ??C (98.3 ??F) 87 22 (!) 177/91 97 % Temp src Heart Rate Source Patient Position BP Location FiO2 (%) 07/05/22201407/05/22223407/05/22223407/05/222234 -- Oral Monitor Lying Right arm Height Height Method Weight Weight Method 07/05/22201407/05/22201407/05/22201407/05/222014 1.549 m (5' 0.98 ) Stated 131.8 kg (290 lb 9.1 oz) Standing scale Physical Exam Vitals and nursing note reviewed. Constitutional: General: She is not in acute distress. Appearance: She is obese. HENT: Head: Normocephalic and atraumatic. Comments: Dry ulcerations in left nostril near septum Eyes: Conjunctiva/sclera: Conjunctivae normal. Cardiovascular: Rate and [...] Clear Specific gravity, ur 1.020 pH, urine 7.0 Protein, ur ql Negative Glucose, ur ql [...] tendency for uric acid stone formation. Source: [facility] [employer].Last revised 05-04-2017 CBC WITH AUTO DIFFERENTIAL - Abnormal WBC 10.8 (*) Hgb 13.4 Hct 42.6 Plt 310 MPV 9.4 RBC 4.71 MCV 90.4 MCH 28.5 MCHC 31.5 (*) RDW CV 14.2 RDW SD 47.1 NRBC abs 0.00 COMPREHENSIVE METABOLIC PANEL - Abnormal Sodium 138 Potassium, pl 4.7 Chloride 99 CO2 30 Anion gap 9 BUN 12 Creatinine 0.70 Glucose 262 (*) Calcium 9.5 Bilirubin, total 0.5 Protein, pl 8.6 (*) Albumin 4.0 Alk phos 102 ALT 23 AST 23 PROTIME-INR - Abnormal PT 17.5 (*) INR 1.4 (*) DIFFERENTIAL AUTO - Abnormal Neutrophil abs 7.3 (*) Imm gran abs 0.1 Lymphocyte abs 2.5 Monocyte abs 0.7 Eosinophil abs 0.3 Basophil abs 0.0 Neutrophil pct 67.1 Imm gran pct 0.6 Lymphocyte pct 22.9 Monocyte pct 6.7 Eosinophil pct 2.4 Basophil pct 0.3 URINALYSIS, MICROSCOPIC ONLY - Abnormal WBC, ur 21-50 (*) RBC, ur 3-5 (*) Bacteria, ur 2+ (*) Mucous, ur Present (*) Culture Reflex Comment Reflex to urine culture will be performed. URINE CULTURE APTT aPTT 31 EGFR eGFR [address] orders to display CT Chest PE (CTA) W Contrast EXAM DESCRIPTION: CT CHEST PE (CTA) W CONTRAST REASON FOR STUDY: Chest pain, PE suspected, high prob Pt reports feeling sick the last 2-3 days with c/o fatigue and nausea. Pt reports tonight started having difficulty catching her breath. Hx of PE's, currently taking Xeralto, history of left breast cancer status post bilateral mastectomy TECHNIQUE: CT angiogram of the chest performed with intravenous contrast using helical scanning technique with dynamic intravenous contrast injection. Reconstructed coronal and sagittal MPR images reviewed. All images stored on PACS. 3D MIP images rendered on scanning unit and reviewed at time of interpretation. Automated exposure control was used as a dose optimization technique for this examination. CONTRAST TYPE/DOSE: 80mL of IOVERSOL 350 MG IODINE/ML INTRAVENOUS SYRINGE COMPARISON: CT February 09, 2022 FINDINGS: VASCULATURE: No thoracic aortic aneurysm or dissection. Pulmonary arteries are adequately opacified. No pulmonary artery filling defect to suggest pulmonary embolus. LUNGS: Respiratory motion degrades the lungs. No airspace consolidation. Mild dependent atelectasis. The airways are patent. In the anterior aspect of the left upper lobe along the pleural surface is minimal ground-glass and reticular opacities which appear chronic and likely represents post treatment change related to left breast malignancy. PLEURA: No pleural effusion or pneumothorax. MEDIASTINUM/SHALA: In the anterior mediastinum is a well-circumscribed soft tissue nodule measuring 1.9 x 1 cm, not significantly changed from November 01, 2017 suggesting benign etiology.. HEART: Heart size is normal with no pericardial effusion. AXILLA: No lymphadenopathy. CHEST WALL: Postsurgical changes of bilateral mastectomy. UPPER ABDOMEN: Gallbladder is surgically absent. No acute abnormality. MUSCULOSKELETAL: Postsurgical changes and spinal stimulator leads in the midthoracic spine. Disc space narrowing in the mid and lower thoracic spine with endplate degenerative change and spondylosis. No aggressive appearing osseous lesion. OTHER: No significant abnormality. IMPRESSION: 1. No CT evidence of pulmonary embolus. No thoracic aortic aneurysm or dissection. 2. No acute abnormality in the chest. THIS IS AN ELECTRONICALLY VERIFIED FINAL REPORT 06/21/2022 6:37 AM - Electronically signed by Dulce Danielson D.O. AC: JUDY Report ID: [id number] Reading Location: [place] [address] XR Chest 1 Vw Portable EXAM DESCRIPTION: XR CHEST 1 VIEW REASON FOR STUDY: general weakness Pt reports feeling sick the last 2-3 days with c/o fatigue and nausea. Pt reports tonight started having difficulty catching her breath TECHNIQUE: Single radiographic view of the chest acquired. COMPARISON: Chest x-ray of March 08, 2022. FINDINGS: LUNGS/PLEURA: No focal consolidation or pneumothorax. No pleural effusion. HEART/MEDIASTINUM: Cardiac silhouette is upper limits of normal in size for AP view. HARDWARE/LINES/TUBES: None. BONES: No acute findings. OTHER: No other significant finding. IMPRESSION: No acute cardiopulmonary abnormality. THIS IS AN ELECTRONICALLY VERIFIED FINAL REPORT 06/21/2022 2:03 AM - Electronically signed by Ilana Chen M.D. SN: SN Report ID: [id number] Reading Location: [id number] BP 145/93 (BP Location: Right arm, Patient Position: Lying) Pulse 83 Temp 36.8 ??C (98.3 ??F) (Oral) Resp 20 Ht 154.9 cm (5' 0.98 ) Wt 131.8 kg (290 lb 9.1 oz) SpO2 95% BMI 54.93 kg/m?? MDM - no active bleeding at this time. - mouth looks clear -- suspect bleeding coming from left nasal passage Dc with ocean nasal spray QID - f/u with PCP Clinical Impression: Epistaxis Chronic anticoagulation This note was prepared by Rojelio Lane, acting as a Scribe for Kirit Everett DO. I electronically signed this note at 3:19 AM on 07/06/2022. I, Kirit Everett DO, personally performed the services described in this documentation, reviewedand edited the documentation which was dictated to the scribe in my presence, and it accurately records my words and actions. Kirit Everett DO 07/06/22 0322 * Melani Suarez RN - 07/05/2022 8:13 PM CDT Pt arrives with c/o bleeding in her mouth. Pt takes xarelto. Pt was seen at urgent care for this issue and they sent her in here. documented in this encounter Plan of Treatment Not on file documented as of this encounter Procedures Procedure Name Priority Date/Time Associated Diagnosis Comments URINALYSIS AND REFLEX TO MICROSCOPIC AND CULTURE STAT 07/05/2022 10:47 PM CDT URINALYSIS, MICROSCOPIC ONLY STAT 07/05/2022 10:47 PM CDT URINE CULTURE STAT 07/05/2022 10:47 PM CDT EGFR STAT 07/05/2022 8:23 PM CDT DIFFERENTIAL AUTO STAT 07/05/2022 8:2 3 PM CDT CBC WITH AUTO DIFFERENTIAL STAT 07/05/2022 8:23 PM CDT APTT STAT 07/05/2022 8:23 PM CDT PROTIME-INR STAT 07/05/2022 8:23 PM CDT COMPREHENSIVE METABOLIC PANEL STAT 07/05/2022 8:23 PM CDT documented in this encounter Results * (ABNORMAL) Urine culture Urine (07/05/2022 10:47 PM CDT) Report Final Report: Greater than or equal to 100,000 colonies/mL of Escherichia coli (.) MARY JANE Comment:Testing performed by : [facility], [address] [facility] [place]., [address] Organism ESCHERICHIA COLI MARY JANE Urine 07/05/2022 10:4 7 PM CDT 07/06/2022 5:45 AM CDT Narrative MARY JANE - 07/08/2022 12:09 PM CDT Urine culture reflexed based upon urinalysis results. Testing performed by [facility] Microbiology Laboratory ([phone]) Organism Antibiotic Method Susceptibility Escherichia coli Ampicillin [...] INTERPRETATION Susceptible Escherichia coli Cefdinir INTERPRETATION Susceptible Kirit Everett DO LAB MICROBIOLOGY - GENERAL ORD ERABLES Final Result Performing Organization Address [facility] Co de Phone Number MARY JANE PHAM [address] [facility] [place] [address] * (ABNORMAL) Urinalysis, microscopic only (07/05/2022 10:47 PM CDT) WBC, ur 21-50(A) 0 - 5 /HPF MARY JANE Comment:Testing performed by : [address] [address] RBC, ur 3-5(A) 0 - 2 /HPF MARY JANE Comment:Testing performed by : [address] [address] Bacteria, ur 2+(A) MARY JANE Comment:Testing performed by : [address] [address] Mucous, ur Present(A) MARY JANE Comment:Testing performed by : [address] [address] Culture Reflex Comment Reflex to urine culture will be performed. MARY JANE Comment:Testing performed by : [address] [address] Urine 07/05/2022 10:4 7 PM CDT 07/05/2022 10:50 PM CDT Kirit Everett DO LAB URINE ORDERABLES Final Res ult Performing Organization Address [facility] Co de Phone Number MARY JANE [address] [facility] Department [place] [address] * (ABNORMAL) Urinalysis reflex to microscopic and culture Urine (07/05/2022 10:47 PM CDT) Color, ur Yellow Yellow MARY JANE Comment:Testing performed by : [address] [address] Clarity, ur Clear Clear MARY JANE Comment:Testing performed by : [address] [address] Specific gravity, ur 1.020 1.003 - 1.030 MARY JANE Comment:Testing performed by : [address], [place]., [address] pH, urine 7.0 MARY JANE Comment:Testing performed by : [address], [place]., [address] Protein, ur ql Negative Negative MARY JANE Comment:Testing performed by : [address], [place]., [address] Glucose, ur ql 2+(A) Negative MARY JANE Comment:Testing performed by : [address], [place]., [address] Ketones, ur Negative Negative MARY JANE Comment:Testing performed by : [address], [place]., [address] Bilirubin, ur Negative Negative MARY JANE Comment:Testing performed by : [address], [place]., [address] Blood, ur Negative Negative MARY JANE Comment:Testing performed by : [address], [place]., [address] Urobilinogen, ur <2.0 <2.0 mg/dL MARY JANE Comment:Testing performed by : [address] [address] Nitrite, ur Negative Negative MARY JANE Comment:Testing performed by : [address] [address] Leukocyte esterase, ur 2+(A) Negative MARY JANE Comment:Testing performed by : [address] [address] UA reflex comment Reflex to microscopic UA will be performed. MARY JANE Comment:Testing performed by : [address] [address] Urine 07/05/2022 10:4 7 PM CDT 07/05/2022 10:50 PM CDT Narrative MARY JANE - 07/05/2022 10:55 PM CDT ?? Urine pH is affected by diet, medications, systemic acid-base disturbances, and renal tubular function. ??pH may affect urinary stone formation. ??For example, urine pH below 6.0 may help reduce the tendency for calcium phosphate stones and pH greater than 6.0 may reduce the tendency for uric acid stone formation. Source: [facility] [employer]. Last revised 05-04-2017 us Kirit Everett DO LAB MICROBIOLOGY - GENERAL ORD ERABLES Final Result MARY JANE [address] [facility] Department [place] [address] * eGFR (07/05/2022 8:23 PM CDT) [facility] eGFR 95 mL/min/1. 73 m2 MARY JANE Comment: Interpretive [...] was last reviewed 2021. Testing performed by: [facility], [address] [place] [address]., [address] Blood 07/05/2022 8:23 PM CDT 07/05/2022 8:27 PM CDT us Kirit Everett DO LAB BLOOD ORDERABLES Final Res ult MARY JANE [address] [facility] Department of Laboratories [place], [place] [id number] * (ABNORMAL) Differential, auto (07/05/2022 8:23 PM CDT) Neutrophil abs 7.3(H) 1.7 - 6.5 K/cumm MARY JANE Comment:Testing performed by : [address] [address] Imm gran abs 0.1 0.0 - 0.1 K/cumm MARY JANE Comment:Testing performed by : [address] [address] Lymphocyte abs 2.5 0.8 - 3.3 K/cumm MARY JANE Comment:Testing performed by : [address] [address] Monocyte abs 0.7 0.2 - 0.8 K/cumm MARY JANE Comment:Testing performed by : [address] [address] Eosinophil abs 0.3 0.0 - 0.5 K/cumm MARY JANE Comment:Testing performed by : [address] [address] Basophil abs 0.0 0.0 - 0.1 K/cumm MARY JANE Comment:Testing performed by : [address] [address] Neutrophil pct 67.1 % MARY JANE Comment: Interpretive Data Percent cell count reference ranges are not reported, since discordance with absolute values may lead to misinterpretation of CBC data. Current Interpretive Data was last revised on 2017. Testing performed by: [address] [address] Imm gran pct 0.6 % MARY JANE Comment: Interpretive Data Percent cell count reference ranges are not reported, since discordance with absolute values may lead to misinterpretation of CBC data. Current Interpretive Data was last revised on 2017. Testing performed by: [address] [address] Lymphocyte pct 22.9 % MARY JANE Comment: Interpretive Data Percent cell count reference ranges are not reported, since discordance with absolute values may lead to misinterpretation of CBC data. Current Interpretive Data was last revised on 2017. Testing performed by: [address] [address] Monocyte pct 6.7 % MARY JANE Comment: Interpretive Data Percent cell count reference ranges are not reported, since discordance with absolute values may lead to misinterpretation of CBC data. Current Interpretive Data was last revised on 2017. Testing performed by: [address] [address] Eosinophil pct 2.4 % MARY JANE Comment: Interpretive Data Percent cell count reference ranges are not reported, since discordance with absolute values may lead to misinterpretation of CBC data. Current Interpretive Data was last revised on 2017. Testing performed by: [address] [address] Basophil pct 0.3 % MARY JANE Comment: Interpretive Data Percent cell count reference ranges are not reported, since discordance with absolute values may lead to misinterpretation of CBC data. Current Interpretive Data was last revised on 2017. Testing performed by: [address] [address] Blood 07/05/2022 8:23 PM CDT 07/05/2022 8:27 PM CDT Kirit Everett DO LAB BLOOD ORDERABLES Final Res ult MARY JANE [address] [facility] Department of Laboratories [place], [place] [id number] * aPTT (07/05/2022 8:23 PM CDT) aPTT 31 22 - 37 sec MARY JANE Comment: Interpretive data aPTT test has not been evaluated for monitoring heparin therapy. The anti-Xa is the preferred test. Current interpretive data was last revised on 2019. Testing performed by: [address] [address] Blood 07/05/2022 8:23 PM CDT 07/05/2022 8:27 PM CDT Kirit [employer] LAB BLOOD ORDERABLES Final Res ult Performing Organization Address [facility] Co de Phone Number [facility] [address] [place] [address] * (ABNORMAL) Protime-INR (07/05/2022 8:23 PM CDT) PT 17.5(H) 12.0 - 14.6 sec MARY JANE Comment: Ref Range High Testing performed by: [address] [address] INR 1.4(H) 0.9 - 1.2 MARY JANE Comment: Ref Range High Interpretive data Oral anticoagulant therapeutic ranges: Venous thromboembolism prophylaxis or treatment: 2.0-3.0 CARDIOLOGY Standard range: 2.0-3.0 High-intensity range: 2.5-3.5 Refer to indication-specific guidelines for appropriate target ranges for prosthetic heart valve replacement. Current interpretive data was last revised on 2019. Testing performed by: [address] [address] Blood 07/05/2022 8:23 PM CDT 07/05/2022 8:27 PM CDT Kirit [facility] LAB BLOOD ORDERABLES Final Res ult Performing Organization Address [facility] de Phone Number [facility] [address] [place] [address] * (ABNORMAL) Comprehensive metabolic panel (07/05/2022 8:23 PM CDT) Sodium 138 135 - 145 mmol/L MARY JANE Comment:Testing performed by : [address] [address] Potassium, pl 4.7 3.3 - 4.9 mmol/L MARY JANE Comment:Testing performed by : [address] [address] Chloride 99 97 - 110 mmol/L MARY JANE Comment:Testing performed by : [address], [place]., [address] CO2 30 22 - 32 mmol/L MARY JANE Comment:Testing performed by : [address], [place]., [address] Anion gap 9 2 - 15 mmol/L MARY JANE Comment:Testing performed by : [address], [place]., [address] BUN 12 8 - 25 mg/dL MARY JANE Comment:Testing performed by : [address], [place]., [address] Creatinine 0.70 0.60 - 1.10 mg/dL MARY JANE Comment:Testing performed by : [address], [place]., [address] Glucose 262(H) 70 - 199 mg/dL MARY JANE Comment: [...] was last revised 2022. Testing performed by: [address] [address] Calcium 9.5 8.5 - 10.3 mg/dL MARY JANE Comment:Testing performed by : [address] [address] Bilirubin, total 0.5 0.1 - 1.2 mg/dL MARY JANE Comment:Testing performed by : [address] [address] Protein, pl 8.6(H) 6.5 - 8.5 g/dL MARY JANE Comment:Testing performed by : [address] [address] Albumin 4.0 3.5 - 5.0 g/dL MARY JANE PHAM Comment:Testing performed by : [address] [address] Alk phos 102 40 - 130 Units/L MARY JANE PHAM Comment:Testing performed by : [address] [address] ALT 23 7 - 45 Units/L MARY JANE PHAM Comment:Testing performed by : [address] [address] AST 23 10 - 45 Units/L MARY JANE Comment:Testing performed by : [address] [address] Blood 07/05/2022 8:23 PM CDT 07/05/2022 8:27 PM CDT us Kirit Everett DO LAB BLOOD ORDERABLES Final Res ult Performing Organization Address City/State/[facility] Co de Phone Number MARY JANE [address] Department [place] [address] * (ABNORMAL) CBC with auto differential (07/05/2022 8:23 PM CDT) WBC 10.8(H) 3.8 - 9.9 K/cumm MARY JANE PHAM Comment:Testing performed by : [address] [address] Hgb 13.4 11.9 - 15.5 g/dL MARY JANE PHAM Comment:Testing performed by : [address] [address] Hct 42.6 35.6 - 45.5 % MARY JANE PHAM Comment:Testing performed by : [address] [address] Plt 310 150 - 400 K/cumm MARY JANE PHAM Comment:Testing performed by : [address] [address] MPV 9.4 9.1 - 12.3 fL MARY JANE PHAM Comment:Testing performed by : [address] [address] RBC 4.71 3.90 - 5.20 M/cumm MARY JANE Comment:Testing performed by : [address] [address] MCV 90.4 81.3 - 96.4 fL MARY JANE Comment:Testing performed by : [address] [address] MCH 28.5 27.1 - 33.3 pg MARY JANE PHAM Comment:Testing performed by : [address], [address] MCHC 31.5(L) 32.3 - 35.7 g/dL MARY JANE Comment:Testing performed by : [address], [address] RDW CV 14.2 11.1 - 14.9 % MARY JANE Comment:Testing performed by : [address], [address] RDW SD 47.1 35.7 - 48.1 fL MARY JANE Comment:Testing performed by : [address] [address] NRBC abs 0.00 0.00 - 0.01 K/cumm MARY JANE Comment:Testing performed by : [address] [address] Blood 07/05/2022 8:23 PM CDT 07/05/2022 8:27 PM CDT Kirit Everett DO LAB BLOOD ORDERABLES Final Res ult MARY JANE [address] [facility] Department [place] [address] documented in this encounter Visit Diagnoses Diagnosis Epistaxis- Primary Chronic anticoagulation Encounter for long-term (current) use of anticoagulants documented in this encounter Administered Medications Inactive Administered Medications - up to 3 most recent administrations Medication Order MAR Action Action Date Dose Rate Site acetaminophen (TYLENOL) tablet 975 mg 975 mg (rounded from 1,000 mg), oral, Once, On Mon07/06/22 at 0117, For 1 dose Given 07/06/2022 1:35 AM CDT 975 mg aluminum-magnesium hydroxide-simethicone (MAALOX) 40-40-4 mg/mL oral suspension 30 mL 30 mL, oral, Once, On Mon07/06/22 at 0117, For 1 dose Given 07/06/2022 1:35 AM CDT 30 mL documented in this encounter Active and Recently Administered Medications Times are shown in CDT. Scheduled Medication Order 07/04/2022 07/05/2022 07/06/2022 acetaminophen (TYLENOL) tablet 975 mg (COMPLETED) 975 mg (rounded from 1,000 mg), oral, Once, On Mon07/06/22 at 0117, For 1 dose 0135 (Given - Provid er: Alistair Bañuelos RN) aluminum-magnesium hydroxide-simethicone (MAALOX) 40-40-4 mg/mL oral suspension 30 mL (COMPLETED) 30 mL, oral, Once, On Mon07/06/22 at 0117, For 1 dose 0135 (Given - Provid er: Alistair Bañuelos RN) documented in this encounter Care Teams Manager Telemetry Relationship Specialty Start Date End Date Justen Gale MD [address] [id number] PCP - General 10/09/17 Liu Jerez MD Consulting Physician Gastroenterology 07/28/17 [place] [address] [facility] [address] [place] [address] Consulting Physician Pulmonary Disease 08/03/17 Khris Arthur MD [address] [facility] [address] [place] [address] Medical Oncologist/Methods Examiner Medical Oncology 10/23/17 [place] [address] [facility] [address] [place] [address] Surgeon Orthopedic Surgery 10/23/17 [place] [address] [facility] [address] [place] [address] Consulting Physician Pain Management 10/23/17 [place] [address] [facility] [address] [place] [address] Referring Physician General Surgery 01/26/18 [place] [address] [facility] [address] [place] [address] Consulting Physician Neurology 01/26/18 documented as of this encounter
--- OUTSIDE RECORDS SUMMARY | 2024-04-26 04:20 | XMS_ITS | Encounter Summary ---
Author Organization [facility] Healthcare Address [address] [place] [address] Care Team Providers Care Professor Of Journalism Name Role Phone Liu Jerez MD Unavailable Albert Corbin MD Unavailable [phone] Justen Gale MD Primary Care Provider Khris Arthur MD Unavailable [phone] Ko Melendez MD Unavailable [phone] John Paul Moyer MD Unavailable [phone] Annel Rod MD Unavailable Anali MARSHALL MD, Carlos M. Unavailable [phone] Reason for Visit * Reason Comments Urinary Problem Encounter Details Date Type Department Care Team (Late st Contact Info) Description 04/04/2022 7:34 PM MIX HOUSE OPERATOR - 04/05/2022 2:40 AM [facility] Emergency [facility] Emergency Department [address] [place] [id number] Mohini Dela Cruz MD [facility] [place] [address] Urinary tract infection with hematuria, site unspecified (Primary Dx); Acute back pain, unspecified back location, unspecified back pain laterality; Abdominal pain Discharge Disposition: Discharge to home or [...] you attend chur ch or alevism services? Never 02/11/2022 Do you belong to [...] on file Legal Sex Female 12:24 AM MIX HOUSE OPERATOR Gender Identity Not on file Sexual Orientation Not on file documented as of this encounter Last Filed Vital Signs Vital Sign Reading Time Taken Comments Blood Pressure 145/84 04/05/2022 2:30 AM MIX HOUSE OPERATOR Pulse 93 04/05/2022 2:30 AM MIX HOUSE OPERATOR Temperature 36.8 ??C (98.3 ??F) 04/05/2022 1:25 AM CS T Respiratory Rate 20 04/05/2022 1:25 AM MIX HOUSE OPERATOR Oxygen Saturation 95% 04/05/2022 2:30 AM MIX HOUSE OPERATOR Inhaled Oxygen Concentration - - Weight 130.2 kg (287 lb 0.6 oz) 04/04/2022 7:10 PM MIX HOUSE OPERATOR Height - - Body Mass Index 54.24 03/08/2022 12:14 PM MIX HOUSE OPERATOR documented in this encounter Discharge Instructions * Discharge Instructions* Mohini Dela Cruz MD - 04/05/2022 2:30 AM MIX HOUSE OPERATOR Take additional vicodin as needed for breakthrough pain at home. Do not take more than 8 in one day - do not take if you are drowsy. Take cipro as prescribed - take benadryl for itching Return to the ED for worsening symptoms HOUSE OPERATOR documented in this encounter Medications at Time of Discharge albuterol HFA (PROVENTIL HFA,VENTOLIN HFA,PROAIR HFA) 90 mcg/actuation inhaler Inhale 2 puffs every 6 (six) hours as needed for wheezing or shortness of breath 1 BD Ultra-Fine Short Pen Needle 31 gauge x 5/16 needle USE 6 TIMES DAILY DIRECTED 2 blood glucose diagnostic (MemberPassuch Ultra Test) strip 4 (four) times a day 1 naloxone (NARCAN) 4 mg/actuation spray,non-aerosol 2 rOPINIRole (REQUIP) 5 mg tablet Take 1 tablet (5 mg total) by mouth nightly Taken at 2100 ciprofloxacin (CIPRO) 500 mg tabletIndications:Ab dominal/Pelvic Infection,Urinary Tract/Genitourinary Infection Take 1 tablet (500 mg total) by mouth 2 (two) times a day for 7 days 14 tablet 2 04/12/20 22 amitriptyline (ELAVIL) 25 mg tablet Take [...] for nausea or vomiting 20 tablet 04/05/2022 3 ciprofloxacin (CIPRO) 500 mg tabletIndications:Ab dominal/Pelvic Infection,Urinary Tract/Genitourinary Infection Take 1 tablet (500 mg total) by mouth 2 (two) times a day for 7 days 14 tablet 04/05/2022 2 documented in this encounter Discharge Disposition Disposition Code Departure Means Destination Discharge to home or self care documented in this encounter Progress Notes * Shannon Noland RN - 04/04/2022 7:35 PM CST Patient took Mobile 7.5/325 at approximately 1500. HOUSE OPERATOR documented in this encounter ED Notes * Mohini Dela Cruz MD - 04/05/2022 2:20 AM CST HPI Chief Complaint Patient presents with Urinary Problem HPI 2:20 AM Karly Marques is a 66 y.o. female presenting to the ED From home with urinary symptoms,low back pain and low abdominal pain. Patient has a history of recurrent UTIs. She also has a history of chronic back pain. She is a stimulator in place it is currently not working . Patient has multiple allergies as well as allergies to pain medications. Takes Vicodin daily that has not been helping with her new pain. Movement aggravates her pain. Nothing seems to relieve her pain. Denies fevers chills. Denies nausea vomiting. Her urine at home and on the tissue. Takes Xarelto. She is a history of kidney stones one time that needed lithotripsy. Patient History: Past Medical History: Diagnosis Date Adiposity obesity Breast CA (CMS/HCC) (HCC) Cancer (CMS/HCC) (HCC) breast CHF (congestive heart failure) (CMS/HCC) (HCC) Depression Depression Diabetes (HCC) Disorder of thyroid Thyroid disease DVT (deep venous thrombosis) (CMS/HCC) (HCC) HX OTHER MEDICAL restless leg syndrome HX OTHER MEDICAL RLS Hypertension Hypertension Osteoarthritis osteoarthritis PE (pulmonary thromboembolism) (CMS/HCC) ([facility]) Sleep apnea Past Surgical History: Procedure [...] not drink Frequency of Binge Drinking: Never Current Facility-Administered Medications: HYDROcodone-acetaminophen (NORCO) 5-325 mg per tablet 1 tablet, 1 tablet, oral, Once Current Outpatient Medications: albuterol HFA (PROVENTIL HFA,VENTOLIN HFA,PROAIR HFA) 90 mcg/actuation inhaler amitriptyline (ELAVIL) 25 mg tablet BD Ultra-Fine Short Pen Needle 31 gauge x 5/16 needle blood glucose diagnostic (DentLightTouch Ultra Test) strip ciprofloxacin (CIPRO) 500 mg tablet exemestane (AROMASIN) 25 mg tablet [...] Triage Vitals Temp Pulse Resp BP SpO2 04/04/22190904/04/22190904/04/22190904/04/22190904/04/221909 36.7 ??C (98 ??F) 95 24 (!) 181/108 100 % Temp src Heart Rate Source Patient Position BP Location FiO2 (%) 04/04/22190904/04/22194904/04/22194904/04/221949 -- Oral Monitor Lying Right arm Height Height Method Weight Weight Method -- -- 04/04/221909 -- 130.2 kg (287 lb 0.6 oz) Physical Exam Vitals and nursing note reviewed. Constitutional: General: She is not in acute distress. Appearance: Normal appearance. She is obese. HENT: Head: Normocephalic and atraumatic. Nose: Nose normal. Eyes: General: Right eye: No discharge. Left eye: No discharge. Conjunctiva/sclera: Conjunctivae normal. Cardiovascular: Rate and Rhythm: Normal rate and regular rhythm. Pulmonary: Effort: Pulmonary effort is normal. No respiratory distress. Breath sounds: Normal breath sounds. No wheezing. Abdominal: General: There is no distension. Palpations: Abdomen is soft. Tenderness: There is no abdominal tenderness. Musculoskeletal: General: No swelling, tenderness or deformity. Normal range of motion. Cervical back: Normal range of motion. No rigidity. Skin: General: Skin is warm and dry. Neurological: General: No focal deficit present. Mental Status: She is alert and oriented to person, place, and time. Psychiatric: Mood and Affect: Mood normal. Behavior: Behavior normal. Procedures MDM Labs Reviewed URINALYSIS AND REFLEX TO MICROSCOPIC AND CULTURE - Abnormal Result Value Color, ur Yellow Clarity, ur Turbid (*) Specific gravity, ur >=1.030 (*) pH, urine 6.5 Protein, ur ql 3+ (*) Glucose, ur ql Negative Ketones, ur Trace Bilirubin, ur 1+ (*) Blood, ur 3+ (*) Urobilinogen, ur 1.0 Nitrite, ur Positive (*) Leukocyte esterase, ur 3+ (*) UA reflex comment Reflex to microscopic UA will be performed. Narrative: If patient unable to urinate, straight cath Urine pH is affected by diet, medications, systemic acid-base disturbances, and renal tubular function. pH may affect urinary stone formation. For example, urine pH below 6.0 may help reduce the tendency for calcium phosphate stones and pH greater than 6.0 may reduce the tendency for uric acid stone formation. Source: [place] [employer].Last revised 05-04-2017 CBC WITH AUTO DIFFERENTIAL - Abnormal WBC 12.9 (*) Hgb 13.4 Hct 42.6 Plt 348 MPV 9.7 RBC 4.66 MCV 91.4 MCH 28.8 MCHC 31.5 (*) RDW CV 14.0 RDW SD 47.3 NRBC abs 0.00 COMPREHENSIVE METABOLIC PANEL - Abnormal Sodium 139 Potassium, pl 4.3 Chloride 99 CO2 31 Anion gap 9 BUN 13 Creatinine 0.70 Glucose 202 (*) Calcium 10.5 (*) Bilirubin, total 0.5 Protein, pl 9.0 (*) Albumin 4.4 Alk phos 110 ALT 25 AST 30 PROTIME-INR - Abnormal PT 16.9 (*) INR 1.4 (*) DIFFERENTIAL AUTO - Abnormal Neutrophil abs 9.1 (*) Imm gran abs 0.1 Lymphocyte abs 2.6 Monocyte abs 0.8 Eosinophil abs 0.3 Basophil abs 0.0 Neutrophil pct 70.3 Imm gran pct 0.5 Lymphocyte pct 20.4 Monocyte pct 5.9 Eosinophil pct 2.6 Basophil pct 0.3 URINALYSIS, MICROSCOPIC ONLY - Abnormal WBC, ur >50 (*) RBC, ur >50 (*) Culture Reflex Comment Reflex to urine culture will be performed. BLOOD CULTURE BLOOD CULTURE URINE CULTURE SEPSIS LACTATE WITH REFLEX Sepsis Lactate 1.[address] Abdomen Pelvis WO Contrast Final Result BP 159/94 (BP Location: Right arm, Patient Position: Lying) Pulse 93 Temp 36.8 ??C (98.3 ??F) (Oral) Resp 20 Wt 130.2 kg (287 lb 0.6 oz) SpO2 96% BMI 54.24 kg/m?? MDM Amount and/or Complexity of Data Reviewed Clinical lab tests: reviewed ED Course as of 04/05/22230 Time: 04/04 2213 Comment: Ct abd neg for acute findings to explain back pain. By: Mohini Dela Cruz MD Time: 04/05 223 Comment: Vital signs stable. Patient feeling better. CT negative for inflammation, infection or kidney stone. Patient has allergies to all antibiotics. Did not feel good after taking the antibiotic in the ED however it is a 1 time dose. Due to history of sepsis will DC with Cipro and take Benadryl as needed for itching. Shared decision-making regarding outpatient plan for antibiotics and need forfollow-up and when to return to emergency department. By: Mohini Dela Cruz MD This examination was transcribed using the Happy Inspector voice recognition system without human supervisor dry paste. In an effort to expedite patient care, this report has not been adjusted for typographical, grammatical, and syntax by a trained clinical specialist medical device. Clinical Impression: Urinary tract infection with hematuria, site unspecified Acute back pain, unspecified back location, unspecified back pain laterality Abdominal pain Mohini Dela Cruz MD 04/05/22230 HOUSE OPERATOR * Jo De RN - 04/04/2022 7:09 PM CST Patient arrives with reports of starting to not feel good yesterday. Patient with frequent hx of complex UTIs, sepsis, and multiple allergies to meds. Patient has blood in urine (on Xarelto) and painin the abdomen and back. HOUSE OPERATOR documented in this encounter Plan of Treatment Not on file documented as of this encounter Procedures Procedure Name Priority Date/Time Associated Diagnosis Comments CT ABDOMEN PELVIS WO CONTRAST ED 04/04/2022 8:54 PM MIX HOUSE OPERATOR BLOOD CULTURE STAT 04/04/2022 7:38 PM MIX HOUSE OPERATOR ECG 12-LEAD Routine 04/04/2022 7:30 PM MIX HOUSE OPERATOR SEPSIS LACTATE WITH REFLEX Routine 04/04/2022 7:26 PM MIX HOUSE OPERATOR EGFR STAT 04/04/2022 7:26 PM MIX HOUSE OPERATOR DIFFERENTIAL AUTO STAT 04/04/2022 7:2 6 PM MIX HOUSE OPERATOR URINALYSIS AND REFLEX TO MICROSCOPIC AND CULTURE STAT 04/04/2022 7:26 PM MIX HOUSE OPERATOR CBC WITH AUTO DIFFERENTIAL STAT 04/04/2022 7:26 PM MIX HOUSE OPERATOR BLOOD CULTURE STAT 04/04/2022 7:26 PM MIX HOUSE OPERATOR URINALYSIS, MICROSCOPIC ONLY STAT 04/04/2022 7:26 PM MIX HOUSE OPERATOR PROTIME-INR Routine 04/04/2022 7:26 PM MIX HOUSE OPERATOR URINE CULTURE STAT 04/04/2022 7:26 PM MIX HOUSE OPERATOR COMPREHENSIVE METABOLIC PANEL STAT 04/04/2022 7:26 PM MIX HOUSE OPERATOR documented in this encounter Results * CT Abdomen Pelvis WO Contrast (04/04/2022 8:54 PM MIX HOUSE OPERATOR) Anatomical Region Laterality Modality Body N/A Computed Tomogra phy 04/04/2022 9:34 PM MIX HOUSE OPERATOR Narrative 04/04/2022 9:47 PM MIX HOUSE OPERATOR EXAM DESCRIPTION: ?? CT ABDOMEN PELVIS WO CONTRAST REASON FOR STUDY: ?? Flank pain, kidney stone suspected ?? Patient arrives with reports of starting to not feel good yesterday. ??Patient with frequent hx of complex UTIs, sepsis, and multiple allergies to meds. ?? Patient has blood in urine (on Xarelto) and diffuse abdominal pain that radiates to back. ? TECHNIQUE: CT scan of the abdomen and pelvis performed without intravenous and ??without ??oral contrast using helical scanning technique. Reconstructed coronal and sagittal MPR images reviewed. All images stored on PACS. ?? Automated exposure control was used as a dose optimization technique for this examination. COMPARISON: ?? 02/09/2022 FINDINGS: The sensitivity for detection of visceral lesions is diminished without the use of intravenous contrast. LOWER CHEST: ?? Unchanged noncalcified pulmonary nodules in the left lower lobe measuring up to 5 mm. ??Calcified pulmonary granulomas. ??Scattered subsegmental atelectasis. ??No pleural effusion. ??Mitral valve annulus [...] Findings Committee. J Am Wang Radiol. 2017 Aug;14(8):4794-7690. THIS IS AN ELECTRONICALLY VERIFIED FINAL REPORT 04/04/2022 9:47 PM - Electronically signed by ??Juan R Johnson M.D. AT: AT D: ??04/04/2022 9:47 PM T: ??04/04/2022 9:47 PM Report ID: [id number] Reading Location: ??[id number] Procedure Note Juan R Johnson MD - 04/04/2022 EXAM DESCRIPTION: CT ABDOMEN PELVIS WO CONTRAST REASON FOR STUDY: Flank pain, kidney stone suspected Patient arrives with reports of starting to not feel good yesterday.Patient with frequent hx of complex UTIs, sepsis, and multiple allergies to meds. Patient has blood in urine (on Xarelto) and diffuse abdominal pain that radiates to back. TECHNIQUE: CT scan of the abdomen and pelvis performed without intravenousand without oral contrast using helical scanning technique. Reconstructed coronal and sagittal MPR images reviewed. All images stored on PACS. Automated exposure control was used as a dose optimization technique forthis examination. COMPARISON: 02/09/2022 FINDINGS: The sensitivity for detection of visceral lesions is diminished without the use of intravenous contrast. LOWER CHEST: Unchanged noncalcified pulmonary nodules in the left lowerlobe measuring up to 5 mm. Calcified pulmonary granulomas. Scatteredsubsegmental atelectasis. No pleural effusion. Mitral valve annulus calcifications. Heart size is normal. LIVER: Normal size. No identified cystic or solid masses. GALLBLADDER: Prior cholecystectomy. BILE DUCTS: No intrahepatic or extrahepatic ductal dilatation. SPLEEN: Normal size. No focal lesions. PANCREAS: No identified cystic or solid masses. No significant calcifications. No adjacent inflammation or peripancreatic fluidcollections. Pancreatic duct not dilated. ADRENALS: Normal. KIDNEYS/URINARY TRACT: Unchanged hypoattenuating lesion in the rightkidney measuring 15 mm likely reflective of a cyst.. No stones. Nohydronephrosis or hydroureter. Urinary bladder is unremarkable. GI: The stomach is normal. The small bowel and colon normal in courseand caliber with no evidence of obstruction or inflammation. There is colonic diverticulosis with no CT evidence of acute diverticulitis. The appendixis normal. PERITONEUM: No ascites or free air. No lymphadenopathy. RETROPERITONEUM: No mass or adenopathy. REPRODUCTIVE: No significant abnormality. VASCULATURE: No abdominal aortic aneurysm. MUSCULOSKELETAL: No acute fractures or aggressive osseous lesions. OTHER: Prior ventral abdominal wall hernia repair with insinuatingnodular soft tissue with spiculated margins and internal calcifications along the ventral abdominal wall which is unchanged measuring proximally 37 x 29 x25 mm likely reflective of scarring. Spinal stimulator lead extends into the thoracic central canal with the tip at the level of lower thoracicvertebra. IMPRESSION: 1. No discrete CT findings to explain patient's flank pain/abdominal pain. No hydronephrosis or hydroureter. No calculi withinthe urinary tract. Normal appendix. 2. Colonic diverticulosis with no CT evidence of acute diverticulitis. 3. Unchanged noncalcified pulmonary nodules measuring up to 5 mm,compared to CT on 02/09/2022. Please refer to follow-up recommendation details on dedicated chest CT on 02/09/2022. REFERENCE: Unless otherwise specified, no follow-up imaging is recommendedfor incidental renal and adrenal lesions per consensus recommendations basedon imaging criteria. Further lab evaluation could be pursued based onclinical findings. Management of the Incidental Renal Mass on CT: A White Paper of the ACR Incidental Findings Committee. J Am Wang Radiol. 2018 May;15(2):264-273. Management of Incidental Adrenal Masses: A White Paper of the ACRIncidental Findings Committee. J Am Wang Radiol. 2017 Nov;14(8):6259-1688. THIS IS AN ELECTRONICALLY VERIFIED FINAL REPORT 04/04/2022 9:47 PM - Electronically signed by Juan R Johnson M.D. AT: AT Report ID: [id number] Reading Location: [id number] Mohini Dela Cruz MD IMG CT PROCEDURES Final R esult * Blood culture Blood Hand, right (04/04/2022 7:38 PM MIX HOUSE OPERATOR) Report Final Report: No growth MARY JANE PHAM Comment:Testing performed by : [facility], [address] [facility] [place] [facility], [place]., [address] Blood (Hand, right) 04/04/2022 7:38 PM MIX HOUSE OPERATOR 04/05/2022 12:34 AM MIX HOUSE OPERATOR Narrative MARY JANE PHAM - 04/09/2022 7:00 AM MIX HOUSE OPERATOR Received only aerobic blood culture bottle 1. ?Blood cultures are incubated for 4 [...] organism identification may be performed using the Verigene Gram-Positive Blood Culture Assay. This assay detects microbial DNA in positive blood culture broth via hybridization of target DNA to capture oligonucleotides on a microarray. This assay has been cleared by the [place] Food and Drug Administration and its performance characteristics have been verified by the [facility] Microbiology Laboratory. 5. ?For questions about this culture, contact the Microbiology Laboratory at [phone]. Interpretive data was last revised on 2019. Mohini Dela Cruz MD LAB MICROBIOLOGY - GENERA L ORDERABLES Final Result Performing Organization Address [facility]/ZIP Co de Phone Number MARY JANE [address] [facility] Department [place] [address] * ECG 12 lead (04/04/2022 7:30 PM MIX HOUSE OPERATOR) Ventricular Rate EKG/Min 93 BPM [facility] Atrial Rate 93 BPM [facility] NH-Interval (MSEC) 126 ms [facility] QRS-Interval (MSEC) 80 ms [facility] QT-Interval (MSEC) 362 ms [facility] QTc 450 ms [facility] P [place] 49 degrees [facility] R [place] -2 degrees [facility] T [place] 36 degrees [facility] Diagnosis Normal sinus rhythm Possible Left atrial enlargement Borderline ECG When compared with ECG of 08-MAR-2022 12:27, No significant change was found [facility] 04/04/2022 7:30 PM MIX HOUSE OPERATOR 04/04/2022 10:31 PM MIX HOUSE OPERATOR Mohini Dela Cruz MD ECG ORDERABLES Final Res ult Performing Organization Address [facility]/ZIP Co de Phone Number [facility] * eGFR (04/04/2022 7:26 PM MIX HOUSE OPERATOR) eGFR 96 mL/min/1. 73 m2 MARY JANE [...] was last reviewed 2021. Testing performed by: [facility], [address] [place] [address]., [address] Blood 04/04/2022 7:26 PM MIX HOUSE OPERATOR 04/04/2022 7:36 PM MIX HOUSE OPERATOR us Mohini Dela Cruz MD LAB BLOOD ORDERABLES Deann bowman Result MARY JANE [address] [facility] Department [place] [address] * (ABNORMAL) Urine culture Urine (04/04/2022 7:26 PM MIX HOUSE OPERATOR) Report Final Report: Greater than or equal to 100,000 colonies/mL of Escherichia coli (.) MARY JANE Comment:Testing performed by : [facility], [address] [facility] [place]., [address] Organism ESCHERICHIA COLI MARY JANE Urine 04/04/2022 7:26 PM MIX HOUSE OPERATOR 04/05/2022 12:38 AM MIX HOUSE OPERATOR Narrative MARY JANE - 04/07/2022 11:53 AM MIX HOUSE OPERATOR Urine culture reflexed based upon urinalysis results. Testing performed by [facility] Microbiology Laboratory ([phone]) Organism Antibiotic Method Susceptibility Escherichia coli Ampicillin INTERPRETATION Susceptible Escherichia coli Cefazolin INTERPRETATION Susceptible Escherichia coli Nitrofurantoin INTERPRETATION Susceptible Escherichia coli Gentamicin INTERPRETATION Susceptible Escherichia coli Trimethoprim with Sulfamethoxazole IN TERPRETATION Susceptible Escherichia coli Meropenem INTERPRETATION Susceptible Escherichia coli Cefepime INTERPRETATION Susceptible Escherichia coli Ciprofloxacin INTERPRETATION Susceptible Escherichia coli Ceftazidime INTERPRETATION Susceptible Escherichia coli Ceftriaxone INTERPRETATION Susceptible Escherichia coli Piperacillin/Tazobactam INTERPRETATIO N Susceptible Escherichia coli Cephalexin INTERPRETATION Susceptible Escherichia coli Cefuroxime-axetil INTERPRETATION Susceptible Escherichia coli Cefdinir INTERPRETATION Susceptible Mohini Dela Cruz MD LAB MICROBIOLOGY - GENERA L ORDERABLES Final Result Performing Organization Address [facility] Co de Phone Number [address] Command [place] [address] * (ABNORMAL) Urinalysis, microscopic only (04/04/2022 7:26 PM MIX HOUSE OPERATOR) WBC, ur >50(A) 0 - 5 /HPF [facility] Comment:Testing performed by : [address] [address] RBC, ur >50(A) 0 - 2 /HPF [facility] Comment:Testing performed by : [address] [address] Culture Reflex Comment Reflex to urine culture will be performed. MARY JANE Comment:Testing performed by : [address] [address] Urine 04/04/2022 7:26 PM MIX HOUSE OPERATOR 04/04/2022 7:36 PM MIX HOUSE OPERATOR Mohini Dela Cruz MD LAB URINE ORDERABLES Deann l Result Performing Organization Address [facility] Co de Phone Number [address] [place] [address] * (ABNORMAL) Differential, auto (04/04/2022 7:26 PM MIX HOUSE OPERATOR) Pathologist [facility] Neutrophil abs 9.1(H) 1.7 - 6.5 K/cumm MARY JANE Comment:Testing performed by : [address] [address] Imm gran abs 0.1 0.0 - 0.1 K/cumm [facility] Comment:Testing performed by : [address], [place]., [address] Lymphocyte abs 2.6 0.8 - 3.3 K/cumm [facility] Comment:Testing performed by : [address] [address] Monocyte abs 0.8 0.2 - 0.8 K/cumm [facility] Comment:Testing performed by : [address] [address] Eosinophil abs 0.3 0.0 - 0.5 K/cumm [facility] Comment:Testing performed by : [address] [address] Basophil abs 0.0 0.0 - 0.1 K/cumm [facility] Comment:Testing performed by : [address] [address] Neutrophil pct 70.3 % [facility] Comment: Interpretive Data Percent cell count reference ranges are not reported, since discordance with absolute values may lead to misinterpretation of CBC data. Current Interpretive Data was last revised on 2017. Testing performed by: [address] [address] Imm gran pct 0.5 % [facility] Comment: Interpretive Data Percent cell count reference ranges are not reported, since discordance with absolute values may lead to misinterpretation of CBC data. Current Interpretive Data was last revised on 2017. Testing performed by: [address] [address] Lymphocyte pct 20.4 % [facility] Comment: Interpretive Data Percent cell count reference ranges are not reported, since discordance with absolute values may lead to misinterpretation of CBC data. Current Interpretive Data was last revised on 2017. Testing performed by: [address] [address] Monocyte pct 5.9 % MARY JANE Comment: Interpretive Data Percent cell count reference ranges are not reported, since discordance with absolute values may lead to misinterpretation of CBC data. Current Interpretive Data was last revised on 2017. Testing performed by: [address] [address] Eosinophil pct 2.6 % MARY JANE Comment: Interpretive Data Percent cell count reference ranges are not reported, since discordance with absolute values may lead to misinterpretation of CBC data. Current Interpretive Data was last revised on 2017. Testing performed by: [address] [address] Basophil pct 0.3 % MARY JANE Comment: Interpretive Data Percent cell count reference ranges are not reported, since discordance with absolute values may lead to misinterpretation of CBC data. Current Interpretive Data was last revised on 2017. Testing performed by: [address] [address] Blood 04/04/2022 7:26 PM MIX HOUSE OPERATOR 04/04/2022 7:36 PM MIX HOUSE OPERATOR us Mohini Dela Cruz MD LAB BLOOD ORDERABLES Deann bowman Result [facility]PUJA [address] [facility] [place] [address] * (ABNORMAL) Protime-INR (04/04/2022 7:26 PM MIX HOUSE OPERATOR) PT 16.9(H) 12.0 - 14.6 sec MARY JANE Comment: Ref Range High Testing performed by: [address] [address] INR 1.4(H) 0.9 - 1.2 MARY JANE Comment: Ref Range High Interpretive data Oral anticoagulant therapeutic ranges: Venous thromboembolism prophylaxis or treatment: 2.0-3.0 CARDIOLOGY Standard range: 2.0-3.0 High-intensity range: 2.5-3.5 Refer to indication-specific guidelines for appropriate target ranges for prosthetic heart valve replacement. Current interpretive data was last revised on 2019. Testing performed by: [facility], [address] [place] [address]., [address] Blood 04/04/2022 7:26 PM MIX HOUSE OPERATOR 04/04/2022 7:36 PM MIX HOUSE OPERATOR Mohini Dela Cruz MD LAB BLOOD ORDERABLES Deann colby Result MARY JANE [address] [facility] [place] [address] * Blood culture Blood Antecubital, right (04/04/2022 7:26 PM MIX HOUSE OPERATOR) Report Final Report: No growth MARY JANE Comment:Testing performed by : [facility], [address] [facility] [place]., [address] Blood (Antecubital, right) 04/04/2022 7:26 PM MIX HOUSE OPERATOR 04/05/2022 12:33 AM MIX HOUSE OPERATOR Narrative MARY JANE - 04/09/2022 7:00 AM MIX HOUSE OPERATOR 1. ?Blood cultures are incubated for 4 [...] organism identification may be performed using the [employer] Gram-Positive Blood Culture Assay. This assay detects microbial DNA in positive blood culture broth via hybridization of target DNA to capture oligonucleotides on a microarray. This assay has been cleared by the [place] Food and Drug Administration and its performance characteristics have been verified by the [facility] Microbiology Laboratory. 5. ?For questions about this culture, contact the Microbiology Laboratory at [phone]. Interpretive data was last revised on 2019. us Mohini Dela Cruz MD LAB MICROBIOLOGY - GENERA L ORDERABLES Final Result [facility]JA [address] [facility] [place] [address] * (ABNORMAL) Urinalysis reflex to microscopic and culture Urine (04/04/2022 7:26 PM MIX HOUSE OPERATOR) Color, ur Yellow Yellow MARY JANE Comment:Testing performed by : [address] [address] Clarity, ur Turbid(A) Clear MARY JANE Comment:Testing performed by : [address] [address] Specific gravity, ur >=1.030(A) 1.003 - 1.030 MARY JANE Comment:Testing performed by : [address] [address] pH, urine 6.5 [facility]JA Comment:Testing performed by : [address] [address] Protein, ur ql 3+(A) Negative MARY JANE Comment:Testing performed by : [address] [address] Glucose, ur ql Negative Negative MARY JANE Comment:Testing performed by : [address] [address] Ketones, ur Trace Negative [facility] Comment:Testing performed by : [address] [address] Bilirubin, ur 1+(A) Negative MARY JANE Comment:Testing performed by : [address] [address] Blood, ur 3+(A) Negative [facility] Comment:Testing performed by : [address] [address] Urobilinogen, ur 1.0 <2.0 mg/dL MARY JANE Comment:Testing performed by : [facility], [address] [place] [address]., [address] Nitrite, ur Positive(A) Negative MARY JANE Comment:Testing performed by : [address] [address] Leukocyte esterase, ur 3+(A) Negative MARY JANE Comment:Testing performed by : [address] [address] UA reflex comment Reflex to microscopic UA will be performed. MARY JANE Comment:Testing performed by : [facility], [address] [place] [address]., [address] Urine 04/04/2022 7:26 PM MIX HOUSE OPERATOR 04/04/2022 7:36 PM MIX HOUSE OPERATOR Narrative MARY JANE - 04/04/2022 7:41 PM MIX HOUSE OPERATOR If patient unable to urinate, straight cath Urine pH is affected by diet, medications, systemic acid-base disturbances, and renal tubular function. ??pH may affect urinary stone formation. ??For example, urine pH below 6.0 may help reduce the tendency for calcium phosphate stones and pH greater than 6.0 may reduce the tendency for uric acid stone formation. Source: [facility]. Last revised 05-04-2017 Mohini Dela Cruz MD LAB MICROBIOLOGY - GENERA L ORDERABLES Final Result Performing Organization Address [facility] Co de Phone Number [facility] [address] [facility] [place] [address] * Sepsis Lactate w/ Reflex (04/04/2022 7:26 PM MIX HOUSE OPERATOR) Sepsis Lactate 1.4 0.7 - 2.0 mmol/L MARY JANE Comment:Testing performed by : [address] [address] Blood 04/04/2022 7:26 PM MIX HOUSE OPERATOR 04/04/2022 7:36 PM MIX HOUSE OPERATOR Mohini Dela Cruz MD LAB BLOOD ORDERABLES Deann l Result [facility] [address] [facility] [place] [address] * (ABNORMAL) Comprehensive metabolic panel (04/04/2022 7:26 PM MIX HOUSE OPERATOR) Sodium 139 135 - 145 mmol/L MARY JANE Comment:Testing performed by : [address] [address] Potassium, pl 4.3 3.3 - 4.9 mmol/L MARY JANE Comment:Testing performed by : [address] [address] Chloride 99 97 - 110 mmol/L MARY JANE Comment:Testing performed by : [address] [address] CO2 31 22 - 32 mmol/L MARY JANE Comment:Testing performed by : [address] [address] Anion gap 9 2 - 15 mmol/L MARY JANE Comment:Testing performed by : [address] [address] BUN 13 8 - 25 mg/dL MARY JANE Comment:Testing performed by : [address] [address] Creatinine 0.70 0.60 - 1.10 mg/dL MARY JANE Comment:Testing performed by : [address] [address] Glucose 202(H) 70 - 199 mg/dL MARY JANE Comment: [...] was last revised 2017. Testing performed by: [address] [address] Calcium 10.5(H) 8.5 - 10.3 mg/dL MARY JANE Comment:Testing performed by : [address] [address] Bilirubin, total 0.5 0.1 - 1.2 mg/dL MARY JANE PHAM Comment:Testing performed by : [address] [address] Protein, pl 9.0(H) 6.5 - 8.5 g/dL MARY JANE PHAM Comment:Testing performed by : [address] [address] Albumin 4.4 3.5 - 5.0 g/dL MARY JANE Comment:Testing performed by : [address] [address] Alk phos 110 40 - 130 Units/L MARY JANE Comment:Testing performed by : [address] [address] ALT 25 7 - 45 Units/L MARY JANE Comment:Testing performed by : [address] [address] AST 30 10 - 45 Units/L MARY JANE Comment:Testing performed by : [address] [address] Blood 04/04/2022 7:26 PM MIX HOUSE OPERATOR 04/04/2022 7:36 PM MIX HOUSE OPERATOR us Mohini Dela Cruz MD LAB BLOOD ORDERABLES Deann l Result [facility]JA [address] [facility] Department [place] [address] * (ABNORMAL) CBC with auto differential (04/04/2022 7:26 PM MIX HOUSE OPERATOR) WBC 12.9(H) 3.8 - 9.9 K/cumm MARY JANE PHAM Comment:Testing performed by : [address] [address] Hgb 13.4 11.9 - 15.5 g/dL MARY JANE PHAM Comment:Testing performed by : [address] [address] Hct 42.6 35.6 - 45.5 % MARY JANE PHAM Comment:Testing performed by : [address] [address] Plt 348 150 - 400 K/cumm MARY JANE PHAM Comment:Testing performed by : [address] [address] MPV 9.7 9.1 - 12.3 fL MARY JANE PHAM Comment:Testing performed by : [address] [address] RBC 4.66 3.90 - 5.20 M/cumm MARY JANE PHAM Comment:Testing performed by : [address] [address] MCV 91.4 81.3 - 96.4 fL MARY JANE PHAM Comment:Testing performed by : [address] [address] MCH 28.8 27.1 - 33.3 pg MARY JANE PHAM Comment:Testing performed by : [address] [address] MCHC 31.5(L) 32.3 - 35.7 g/dL MARY JANE Comment:Testing performed by : [address] [address] RDW CV 14.0 11.1 - 14.9 % MARY JANE Comment:Testing performed by : [address] [address] RDW SD 47.3 35.7 - 48.1 fL MARY JANE Comment:Testing performed by : [address] [address] NRBC abs 0.00 0.00 - 0.01 K/cumm MARY JANE Comment:Testing performed by : [address] [address] Blood 04/04/2022 7:26 PM MIX HOUSE OPERATOR 04/04/2022 7:36 PM MIX HOUSE OPERATOR us Mohini Dela Cruz MD LAB BLOOD ORDERABLES Deann bowman Result MARY JANE [address] Department of Laboratories [place], [place] [id number] documented in this encounter Visit Diagnoses Diagnosis Urinary tract infection with hematuria, site unspecified- Primary Acute back pain, unspecified back location, unspecified back pain laterality Abdominal pain Abdominal pain, unspecified site documented in this encounter Administered Medications Inactive Administered Medications - up to 3 most recent administrations Medication Order MAR Action Action Date Dose Rate Site diphenhydrAMINE (BENADRYL) tab/cap 50 mg 50 mg, oral, Once, On Mon04/05/22 at 0136, For 1 dose Given 04/05/2022 2:03 AM MIX HOUSE OPERATOR 50 mg fosfomycin (MONUROL) packet 3 g 3 g, oral, Once, On Mon04/04/22 at 2300, For 1 dose, Pour contents of packet into 3-4 oz of cool water, stir to dissolve and administer immediately., Indications: Urinary Tract/Genitourinary InfectionIndications:Urinary Tract/Genitourinary Infection Given 04/04/2022 11:05 PM MIX HOUSE OPERATOR 3 g HYDROcodone-acetaminophen (NORCO) 10-325 mg per tablet 1 tablet 1 tablet, oral, Once, On Mon04/05/22 at 0142, For 1 dose, Indications: PainIndications:Pain Given 04/05/2022 2:03 AM MIX HOUSE OPERATOR 1 tablet morphine injection 4 mg 4 mg, intravenous, Administer over 4 Minutes, Once, On Mon04/04/22 at 2045, For 1 dose Given 04/04/2022 8:56 PM MIX HOUSE OPERATOR 4 mg ondansetron (ZOFRAN) injection 4 mg 4 mg, intravenous, Administer over 2 Minutes, Once, On Mon04/04/22 at 2045, For 1 dose Given 04/04/2022 8:56 PM MIX HOUSE OPERATOR 4 mg sodium chloride 0.9% bolus 1,000 mL 1,000 mL, intravenous, Once, On Mon04/04/22 at 2045, For 1 dose New Bag 04/04/2022 8:56 PM MIX HOUSE OPERATOR 1,000 mL documented in this encounter Active and Recently Administered Medications Times are shown in MIX HOUSE OPERATOR. Scheduled Medication Order 04/03/2022 04/04/2022 04/05/2022 diphenhydrAMINE (BENADRYL) tab/cap 50 mg (COMPLETED) 50 mg, oral, Once, On Mon04/05/22 at 0136, For 1 dose 0203 (Given - Provid er: Jane Buenrostro RN) fosfomycin (MONUROL) packet 3 g (COMPLETED) 3 g, oral, Once, On Mon04/04/22 at 2300, For 1 dose, Pour contents of packet into 3-4 oz of cool water, stir to dissolve and administer immediately., Indications: Urinary Tract/Genitourinary Infection 2305 (Given - Provider: Jennifer Carbajal RN) HYDROcodone-acetaminophen (NORCO) 10-325 mg per tablet 1 tablet (COMPLETED) 1 tablet, oral, Once, On Mon04/05/22 at 0142, For 1 dose, Indications: Pain 0203 (Given - Provid er: Jane Buenrostro RN) HYDROcodone-acetaminophen (NORCO) 5-325 mg per tablet 1 tablet 1 tablet, oral, Once, On Mon04/04/22 at 1934, For 1 dose, Indications: Pain 1952 (Not Given - Provider: Jayson Lawrence RN - Reason: Patient/family refused - Comment: pt states she has these at home and they didn't help with her pain) morphine injection 4 mg (COMPLETED) 4 mg, intravenous, Administer over 4 Minutes, Once, On Mon04/04/22 at 2044, For 1 dose 2055 (Given - Provider: Jayson Lawrence RN) ondansetron (ZOFRAN) injection 4 mg (COMPLETED) 4 mg, intravenous, Administer over 2 Minutes, Once, On Mon04/04/22 at 2044, For 1 dose 2055 (Given - Provider: Jayson Lawrence, NURIS) sodium chloride 0.9% bolus 1,000 mL (COMPLETED) 1,000 mL, intravenous, Once, On Mon04/04/22 at 2044, For 1 dose 2055 (New Bag - Provider: Jayson Lawrence RN) 0009 (Stopped - Provider: Jayson Lawrence RN) documented in this encounter Orders Medications Ordered That Tyler ht Not Have Been Administered Count Last Ordered Date First Ordered Date HYDROcodone-acetaminophen (N ORCO) 5-325 mg per tablet 1 tablet 1 04/04/2022 documented in this encounter Additional Health Concerns Infection Onset Date Last Indicated Resolved Time COVID: Recovered 02/10/2022 02/10/2022 06/10/2022 3:05 AM MIX HOUSE OPERATOR documented as of this encounter Care Teams Professor Of Journalism Relationship Specialty Start Date End Date Justen Gale MD [address] [facility] [address] [place] [address] PCP - General 10/09/17 Liu Jerez MD Consulting Physician Gastroenterology 07/28/17 [place] [address] [facility] [address] [place] [address] Consulting Physician Pulmonary Disease 08/03/17 Khris Arthur MD [address] [facility] [address] [place] [address] Medical Oncologist/Fisher Eel Spear Medical Oncology 10/23/17 [place] [address] [facility] [address] [place] [address] Surgeon Orthopedic Surgery 10/23/17 [place] [address] [facility] [address] [place] [address] Consulting Physician Pain Management 10/23/17 [place] [address] [facility] [address] [place] [address] Referring Physician General Surgery 01/26/18 [place] [address] [facility] [address] [place] [address] Consulting Physician Neurology 01/26/18 documented as of this encounter
--- OUTSIDE RECORDS SUMMARY | 2024-04-26 04:20 | XMS_ITS | Encounter Summary ---
Author Organization [facility] Address [address] [place] [address] Phone Care Team Providers Care Hand Packer/Packager Name Role Phone Liu Jerez MD Unavailable Albert Corbin MD Unavailable [phone] Justen Gale MD Primary Care Provider [phone] Khris Arthur MD Unavailable [phone] Ko Melendez MD Unavailable [phone] John Paul Moyer MD Unavailable [phone] Annel Rod MD Unavailable Anali MARSHALL MD, Carlos M. Unavailable Reason for Visit * Reason Onset Date Comments Reschedule Appointments 05/03/2022 Encounter Details Date Type Department Care Team (Late st Contact Info) Description 05/03/2022 Telephone [facility] Oncology [address] [facility] 7[address] [place] [address] [place] [address] Jeanine Ba, A Reschedule Appointments Social History Tobacco Use Types Packs/Day [...] often do you attend chur ch or gnosticist services? Never 02/11/2022 Do you belong to [...] on file Legal Sex Female 12:24 AM BONE DENSITY TECHNICIAN Gender Identity Not on file Sexual Orientation Not on file documented as of this encounter Miscellaneous Notes * Telephone Encounter - Jeanine Ba RMA - 05/03/2022 11:39 AM BONE DENSITY TECHNICIAN Pt LVM requesting to randall her dexa/rov she missed. Appt's randall 06/14/22 dexa 9:10am, rov 10:00am. Called to let pt know, no answer left message with info. DENSITY TECHNICIAN documented in this encounter Plan of Treatment Not on file documented as of this encounter Visit Diagnoses Not on filedocumented in this encounter Additional Health Concerns Infection Onset Date Last Indicated Resolved Time COVID: Recovered 02/10/2022 02/10/2022 06/10/2022 3:05 AM BONE DENSITY TECHNICIAN documented as of this encounter Care Teams Hand Packer/Packager Relationship Specialty Start Date End Date Justen Gale MD [address] [place] [address] PCP - General 10/09/17 Liu Jerez MD Consulting Physician Gastroenterology 07/28/17 [place] [address] [facility] [address] [place] [address] Consulting Physician Pulmonary Disease 08/03/17 Khris Arthur MD [address] [facility] [address] [place] [address] Medical Oncologist/Sales Department Supervisor Medical Oncology 10/23/17 [place] [address] [facility] [address] [place] [address] Surgeon Orthopedic Surgery 10/23/17 [place] [address] [facility] [address] [place] [address] Consulting Physician Pain Management 10/23/17 [place] [address] [facility] [address] [place] [address] Referring Physician General Surgery 01/26/18 [place] [address] [facility] [address] [place] [address] Consulting Physician Neurology 01/26/18 documented as of this encounter
--- OUTSIDE RECORDS SUMMARY | 2024-04-26 04:20 | XMS_ITS | Encounter Summary ---
Author Organization [facility] Healthcare Address [address] [place] [address] Care Team Providers Care Electronics Assembler And Tester Name Role Phone Liu Jerez MD Unavailable Albert Corbin MD Unavailable [phone] Justen Gale MD Primary Care Provider [phone] Khris Atrhur MD Unavailable [phone] Ko Melendez MD Unavailable [phone] John Paul Moyer MD Unavailable Annel Rod MD Unavailable Anali MARSHALL MD, Carlos M. Unavailable [phone] Reason for Visit * Reason Comments Shortness of Breath Nausea Encounter Details Date Type Department Care Team (Late st Contact Info) Description 06/21/2022 4:25 AM GROUP CONTRACT ANALYST - 06/21/2022 8:03 AM [facility] Emergency [facility] Emergency Department [address] [place] [id number] Mohini Dela Cruz MD [address] [facility] [place] [address] Melvin Sy MD [address] [facility] [place] [address] Shortness of breath (Primary Dx); Nausea; Hypertension, unspecified type Discharge Disposition: Discharge to home [...] week 02/11/2022 How often do you attend [facility] or sab[facility] services? Never 02/11/2022 Do you [...] on file Legal Sex Female 12:24 AM GROUP CONTRACT ANALYST Gender Identity Not on file Sexual Orientation Not on file documented as of this encounter Last Filed Vital Signs Vital Sign Reading Time Taken Comments Blood Pressure 147/96 06/21/2022 8:00 AM GROUP CONTRACT ANALYST Pulse 86 06/21/2022 8:00 AM GROUP CONTRACT ANALYST Temperature 36.8 ??C (98.2 ??F) 06/21/2022 1 2:27 AM GROUP CONTRACT ANALYST Respiratory Rate 18 06/21/2022 8:00 AM GROUP CONTRACT ANALYST Oxygen Saturation 96% 06/21/2022 8: 00 AM GROUP CONTRACT ANALYST Inhaled Oxygen Concentration - - Weight 132.9 kg (292 lb 15.9 oz) 2022 12:27 AM GROUP CONTRACT ANALYST Height - - Body Mass Index 55.36 06/07/2022 11:06 AM GROUP CONTRACT ANALYST documented in this encounter Discharge Instructions * Discharge Instructions* Melvin Sy MD - 06/21/2022 7:46 AM GROUP CONTRACT ANALYST Karly, continue what you are doing by not taking the new medicines considering they may be causing side effects. Today we have not identified any sources of infection or acute medical conditions that would need you to be hospitalized. Please contact your primary care provider later today so that you may follow-up by the end of the week. If you develop any new worrisome symptoms while waiting for follow-up please return to our emergency department. P CONTRACT ANALYST P CONTRACT ANALYST documented in this encounter Medications at [...] Notes * Mohini Dela Cruz MD - 06/21/2022 4:57 AM CST HPI Chief Complaint Patient presents with Shortness of Breath Nausea HPI 4:57 AM Karly Marques is a 67 y.o. female presenting to the ED c/o overall not feeling well. Patient notes severe nausea. She is not had symptoms similar to this in the past. Short of breath withany exertion. She has a history of PE and takes Eliquis. She has felt generalized fatigue and has not eaten anything in 2 days. States she feels too weak to walk around. On exam she looks ill and uncomfortable. Added that her left foot is swollen but not painful Patient History: Past Medical History: Diagnosis Date [...] gauge x 5/16 needle blood glucose diagnostic (Clinicientuch Ultra Test) strip exemestane (AROMASIN) 25 mg [...] HPI . Physical Exam ED Triage Vitals [06/21/22 0027] Temp Pulse Resp BP SpO2 36.8 ??C (98.2 ??F) 102 20 160/88 100 % Temp src Heart Rate Source Patient Position BP Location FiO2 (%) Oral -- -- -- -- Height Height Method Weight Weight Method -- -- 132.9 kg (292 lb 15.9 oz) Standing scale Physical Exam Vitals and nursing note reviewed. Constitutional: General: She is not in acute distress. Appearance: Normal appearance. She is obese. She is ill-appearing. HENT: Head: Normocephalic and atraumatic. Nose: Nose [...] Behavior: Behavior normal. Procedures MDM Labs Reviewed CBC WITH AUTO DIFFERENTIAL - Abnormal Result Value WBC 12.5 (*) Hgb 13.5 Hct 42.5 Plt 316 MPV 9.4 RBC 4.75 MCV 89.5 MCH 28.4 MCHC 31.8 (*) RDW CV 14.4 RDW SD 46.6 NRBC abs 0.00 COMPREHENSIVE METABOLIC PANEL - Abnormal Sodium 138 Potassium, pl 3.8 Chloride 100 CO2 28 Anion gap 10 BUN 19 Creatinine 0.70 Glucose 140 Calcium 10.1 Bilirubin, total 0.4 Protein, pl 8.7 (*) Albumin 4.1 Alk phos 107 ALT 22 AST 20 TROPONIN T HIGH-SENSITIVITY SERIES (BASELINE, 2HR, 4HR, 6HR) - Abnormal Trop T hs 18 (*) DIFFERENTIAL AUTO - Abnormal Neutrophil abs 8.2 (*) Imm gran abs 0.1 Lymphocyte abs 3.1 Monocyte abs 0.8 Eosinophil abs 0.3 Basophil abs 0.1 Neutrophil pct 65.7 Imm gran pct 0.5 Lymphocyte pct 24.6 Monocyte pct 6.5 Eosinophil pct 2.2 Basophil pct 0.5 TROPONIN T HIGH-SENSITIVITY 2-HOUR - Abnormal Trop T hs 17 (*) Trop T hs delta -1 Trop T hs interp Insignificant TROPONIN T HIGH-SENSITIVITY 4-HR - Abnormal Trop T hs 17 (*) Trop T hs delta -1 Trop T hs interp Insignificant INFLUENZA A/B, RSV, AND COVID-19 PCR COVID-19 RNA Negative Influenza A RNA Negative Influenza B RNA Negative RSV RNA Negative Narrative: Is the Patient experiencing symptoms consistent with COVID?->Yes Date of Symptom Onset->06/19/22 Reason for testing?->Symptomatic PROTIME-INR PT 14.1 INR 1.1 APTT aPTT [address] Chest PE (CTA) W Contrast Final Result XR Chest 1 Vw Portable Final Result BP 147/96 Pulse 86 Temp 36.8 ??C (98.2 ??F) (Oral) Resp 18 Wt 132.9 kg (292 lb 15.9 oz) SpO2 96% BMI 55.36 kg/m?? MDM Amount and/or Complexity of Data Reviewed Clinical lab tests: reviewed Tests in the radiology section of CPT??: reviewed ED Course as of 06/23/22 1233 Time: 06/21 2587 Comment: Differential diagnosis includes but not limited to viral gastroenteritis, PE, CAD, electrolyte abnormality, infection By: Mohini Dela Cruz MD Time: 06/21 648 Comment: CTA chest: IMPRESSION: 1. No CT evidence of pulmonary embolus. No thoracic aortic aneurysm or dissection. 2. No acute abnormality in the chest. By: Melvin Sy MD Time: 06/21 648 Comment: EKG 0042 normal sinus rhythm rate [address] elevation or depression By: Melvin Sy MD This examination was transcribed using the [employer] voice recognition system without human customer assistance associate. In an effort to expedite patient care, this report has not been adjusted for typographical, grammatical, and syntax by a trained medical apparatus model maker. Clinical Impression: Shortness of breath Nausea Hypertension, unspecified type Mohini Dela Cruz MD 06/21/22 0626 Mohini Dela Cruz MD 06/23/22 1233 P CONTRACT ANALYST P CONTRACT ANALYST * Jennifre Carbajal RN - 06/21/2022 12:25 AM CST Pt reports feeling sick the last 2-3 days with c/o fatigue and nausea. Pt reports tonight startedhaving difficulty catching her breath. Hx of PE's, currently taking xaralto. P CONTRACT ANALYST documented in this encounter Miscellaneous Notes * ED Re-evaluation Note - Melvin Sy MD - 06/21/2022 6:21 AM GROUP CONTRACT ANALYST ED Re-evaluation Assumed patient care at 0600. In brief patient is a 67-year-old female that presents feeling unwellfor 2-3 days. Main symptoms are fatigue and nausea. Vital signs are stable on room air with elevated blood pressure. Lab workup so far has been reassuring. CT scan of chest pending at this time. CT scan no acute findings. I reviewed labs with patient. Patient describes she has been on some newmedicines in the last 2 weeks but thought maybe her symptoms were from side effects and so she discontinued them 24 hours ago. I discussed with her to continue with this discontinuation and follow-upvery closely with her primary care provider so that we may discern whether her current symptoms today of fatigue and nausea could be related to the medicines. Melvin Sy MD 06/21/22 0749 P CONTRACT ANALYST documented in this encounter Plan of Treatment Not on file documented as of this encounter Procedures Procedure Name Priority Date/Time Associated Diagnosis Comments CT CHEST PE W CONTRAST ED 6:25 AM GROUP CONTRACT ANALYST TROPONIN T HIGH-SENSITIVITY 4-HR Timed 06/21/2022 4:49 AM GROUP CONTRACT ANALYST TROPONIN T HIGH-SENSITIVITY 2-HOUR Timed 06/21/2022 2:48 AM GROUP CONTRACT ANALYST XR CHEST 1 VIEW ED 06/21/2022 1:44 AM GROUP CONTRACT ANALYST TROPONIN T HIGH-SENSITIVITY SERIES (BASELINE, 2HR, 4HR, 6HR) STAT 06/21/2022 12:50 AM GROUP CONTRACT ANALYST INFLUENZA A/B, RSV, AND COVID-19 PCR Routine 06/21/2022 12:50 AM GROUP CONTRACT ANALYST EGFR STAT 06/21/2022 12:50 AM GROUP CONTRACT ANALYST DIFFERENTIAL AUTO STAT 06/21/2022 12: 50 AM GROUP CONTRACT ANALYST CBC WITH AUTO DIFFERENTIAL STAT 06/21/2022 12:50 AM GROUP CONTRACT ANALYST APTT STAT 06/21/2022 12:50 AM GROUP CONTRACT ANALYST PROTIME-INR STAT 06/21/2022 12:50 AM GROUP CONTRACT ANALYST COMPREHENSIVE METABOLIC PANEL STAT 06/21/2022 12:50 AM GROUP CONTRACT ANALYST ECG 12-LEAD STAT 06/21/2022 12:42 AM GROUP CONTRACT ANALYST documented in this encounter Results * CT Chest PE (CTA) W Contrast (06/21/2022 6:25 AM GROUP CONTRACT ANALYST) Anatomical Region Laterality Modality Body N/A Computed Tomogra phy 06/21/2022 6:28 AM GROUP CONTRACT ANALYST Narrative 06/21/2022 6:37 AM GROUP CONTRACT ANALYST EXAM DESCRIPTION: ?? CT CHEST PE (CTA) W CONTRAST REASON FOR STUDY: ?? Chest pain, PE suspected, high prob ?? Pt reports feeling sick the last 2-3 [...] reviewed. All images stored on PACS. ?? 3D MIP images rendered on scanning unit and reviewed at time of interpretation. ??Automated exposure control was used as a dose optimization technique for this examination. CONTRAST TYPE/DOSE: ?? 80mL of IOVERSOL 350 MG IODINE/ML INTRAVENOUS SYRINGE COMPARISON: ?? CT February 09, 2022 FINDINGS: VASCULATURE: ?? No thoracic aortic aneurysm or dissection. ??Pulmonary arteries are adequately opacified. ??No pulmonary artery filling defect to suggest pulmonary embolus. LUNGS: ?? Respiratory motion degrades the lungs. ??No airspace consolidation. ?? Mild dependent atelectasis. ??The airways are patent. ??In the anterior aspect of the left upper lobe along the pleural surface is minimal ground-glass and reticular opacities which appear chronic and likely represents post treatment change related to left breast malignancy. PLEURA: ?? No pleural effusion or pneumothorax. MEDIASTINUM/SHALA: ?? In the anterior mediastinum is a well-circumscribed soft tissue nodule measuring 1.9 x 1 cm, not significantly changed from November 01, 2017 suggesting benign etiology.. HEART: ?? Heart size is normal with no pericardial effusion. AXILLA: ?? No lymphadenopathy. CHEST WALL: ?? Postsurgical changes of bilateral mastectomy. UPPER ABDOMEN: ?? Gallbladder is surgically absent. ??No acute abnormality. MUSCULOSKELETAL: ?? Postsurgical changes and spinal stimulator leads in the midthoracic spine. ??Disc space narrowing in the mid and lower thoracic spine with endplate degenerative change and spondylosis. ??No aggressive appearing osseous lesion. OTHER: ?? No significant abnormality. IMPRESSION: ?? 1. ??No CT evidence of pulmonary embolus. ??No thoracic aortic aneurysm or dissection. ?? 2. ??No acute abnormality in the chest. THIS IS AN ELECTRONICALLY VERIFIED FINAL REPORT 06/21/2022 6:37 AM - Electronically signed by ??July Jagjit Breen July Jagjit Breen AC: JUDY D: ??06/21/2022 6:37 AM T: ??06/21/2022 6:37 AM Report ID: [id number] Reading Location: ??[id number] Procedure Note Dulce Danielson, DO - 06/21/2022 EXAM DESCRIPTION: CT CHEST PE (CTA) W CONTRAST REASON FOR STUDY: Chest pain, PE suspected, high prob Pt reports feeling sick the last 2-3 days with c/o fatigue and nausea.Pt reports tonight started having difficulty catching her breath. Hx of PE's, currently taking Xeralto, history of left breast cancer status postbilateral mastectomy TECHNIQUE: CT angiogram of the chest performed with intravenous contrastusing helical scanning technique with dynamic intravenous contrast injection. Reconstructed coronal and sagittal MPR images reviewed. All images storedon PACS. 3D MIP images rendered on scanning unit and reviewed at time of interpretation. Automated exposure control was used as a doseoptimization technique for this examination. CONTRAST TYPE/DOSE: 80mL of IOVERSOL 350 MG IODINE/ML INTRAVENOUSSYRINGE COMPARISON: CT February 09, 2022 FINDINGS: VASCULATURE: No thoracic aortic aneurysm or dissection.Pulmonary arteries are adequately opacified. No pulmonary artery filling defect to suggest pulmonary embolus. LUNGS: Respiratory motion degrades the lungs. No airspaceconsolidation. Mild dependent atelectasis. The airways are patent. In the anterioraspect of the left upper lobe along the pleural surface is minimal ground-glassand reticular opacities which appear chronic and likely represents posttreatment change related to left breast malignancy. PLEURA: No pleural effusion or pneumothorax. MEDIASTINUM/SHALA: In the anterior mediastinum is a well-circumscribedsoft tissue nodule measuring 1.9 x 1 cm, not significantly changed from 2017 suggesting benign etiology.. HEART: Heart size is normal with no pericardial effusion. AXILLA: No lymphadenopathy. CHEST WALL: Postsurgical changes of bilateral mastectomy. UPPER ABDOMEN: Gallbladder is surgically absent. No acute abnormality. MUSCULOSKELETAL: Postsurgical changes and spinal stimulator leads in the midthoracic spine. Disc space narrowing in the mid and lower thoracicspine with endplate degenerative change and spondylosis. No aggressiveappearing osseous lesion. OTHER: No significant abnormality. IMPRESSION: 1. No CT evidence of pulmonary embolus. No thoracic aortic aneurysm or dissection. 2. No acute abnormality in the chest. THIS IS AN ELECTRONICALLY VERIFIED FINAL REPORT 06/21/2022 6:37 AM - Electronically signed by Dulce Danielson D.O. AC: JUDY Report ID: [id number] Reading Location: [place] [address] Mohini Dela Cruz MD IMG CT PROCEDURES Final R esult * (ABNORMAL) Troponin T high-sensitivity 4-hour (06/21/2022 4:49 AM GROUP CONTRACT ANALYST) Trop T hs 17(H) <=14 ng/L MARY JANE PHAM Comment: Interpretive Data For further hscTnT resources including the diagnostic algorithm and an aid in interpretation, copy and paste this link: https://nrl.testcatalog.org/show/hsTrop Current Interpretive Data last revised 2020. Testing performed by: [facility], [address] [place] [address]., [id number] Trop T hs delta -1 ng/L MARY JANE Comment:Testing performed by : [address] [address] Trop T hs interp Insignificant MARY JANE Comment:Testing performed by : [address] [address] Blood 06/21/2022 4:49 AM GROUP CONTRACT ANALYST 06/21/2022 4:55 AM GROUP CONTRACT ANALYST Mohini Dela Cruz MD LAB BLOOD ORDERABLES Deann l Result MARY JANE [address] [facility] [place] [address] * (ABNORMAL) Troponin T high-sensitivity 2-hour (06/21/2022 2:48 AM GROUP CONTRACT ANALYST) Trop T hs 17(H) <=14 ng/L MARY JANE Comment: Interpretive Data For further hscTnT resources including the diagnostic algorithm and an aid in interpretation, copy and paste this link: https://nrl.testcatalog.org/show/hsTrop Current Interpretive Data last revised 2020. Testing performed by: [facility], [address] [place] [address]., [id number] Trop T hs delta -1 ng/L MARY JANE PHAM Comment:Testing performed by : [address] [address] Trop T hs interp Insignificant MARY JANE PHAM Comment:Testing performed by : [facility], [address] [place] [address]., [id number] Blood 06/21/2022 2:48 AM GROUP CONTRACT ANALYST 06/21/2022 2:52 AM GROUP CONTRACT ANALYST us Mohini Dela Cruz MD LAB BLOOD ORDERABLES Deann bowman Result MARY JANE [address] [facility] [place] [address] * XR Chest 1 Vw Portable (06/21/2022 1:44 AM GROUP CONTRACT ANALYST) Anatomical Region Laterality Modality Body, Chest N/A Computed Radiogr aphy 06/21/2022 2:02 AM GROUP CONTRACT ANALYST Narrative 06/21/2022 2:03 AM GROUP CONTRACT ANALYST EXAM DESCRIPTION: ?? XR CHEST 1 VIEW REASON FOR STUDY: ?? general weakness ?? Pt reports feeling sick the last 2-3 days with c/o fatigue and nausea. Pt reports tonight started having difficulty catching her breath ?? TECHNIQUE: ?? Single ??radiographic view of the chest acquired. COMPARISON: ?? Chest x-ray of March 08, 2022. FINDINGS: LUNGS/PLEURA: ?? No focal consolidation or pneumothorax. No pleural effusion. HEART/MEDIASTINUM: ?? Cardiac silhouette is upper limits of normal in size for AP view. HARDWARE/LINES/TUBES: ?? None. BONES: ?? No acute findings. OTHER: ?? No other significant finding. IMPRESSION: ?? No acute cardiopulmonary abnormality. THIS IS AN ELECTRONICALLY VERIFIED FINAL REPORT 06/21/2022 2:03 AM - Electronically signed by ??Ilana Chen M.D. SN: SN D: ??06/21/2022 2:03 AM T: ??06/21/2022 2:03 AM Report ID: [id number] Reading Location: ??[id number] Procedure Note Ilana Chen MD - 06/21/2022 EXAM DESCRIPTION: XR CHEST 1 VIEW REASON FOR STUDY: general weakness Pt reports feeling sick the last 2-3 days with c/o fatigue and nausea.Pt reports tonight started having difficulty catching her breath TECHNIQUE: Single radiographic view of the chest acquired. COMPARISON: Chest x-ray of March 08, 2022. FINDINGS: LUNGS/PLEURA: No focal consolidation or pneumothorax. Nopleural effusion. HEART/MEDIASTINUM: Cardiac silhouette is upper limits of normal in sizefor AP view. HARDWARE/LINES/TUBES: None. BONES: No acute findings. OTHER: No other significant finding. IMPRESSION: No acute cardiopulmonary abnormality. THIS IS AN ELECTRONICALLY VERIFIED FINAL REPORT 06/21/2022 2:03 AM - Electronically signed by Ilana Chen M.D. SN: SN Report ID: [id number] Reading Location: [id number] Mohini Dela Cruz MD IMG XR PROCEDURES Final R esult * eGFR (06/21/2022 12:50 AM GROUP CONTRACT ANALYST) eGFR 95 mL/min/1. 73 m2 MARY JANE [...] was last reviewed 2021. Testing performed by: [address] [address] Blood 06/21/2022 12:5 0 AM GROUP CONTRACT ANALYST 06/21/2022 1:15 AM GROUP CONTRACT ANALYST us Mohini Dela Cruz MD LAB BLOOD ORDERABLES Deann bowman Result [facility] [address] [facility] Department of Laboratories [place], [place] [id number] * (ABNORMAL) Differential, auto (06/21/2022 12:50 AM GROUP CONTRACT ANALYST) Neutrophil abs 8.2(H) 1.7 - 6.5 K/cumm MARY JANE Comment:Testing performed by : [address] [address] Imm gran abs 0.1 0.0 - 0.1 K/cumm MARY JANE Comment:Testing performed by : [address] [address] Lymphocyte abs 3.1 0.8 - 3.3 K/cumm MARY JANE Comment:Testing performed by : [address] [address] Monocyte abs 0.8 0.2 - 0.8 K/cumm MARY JANE Comment:Testing performed by : [address] [address] Eosinophil abs 0.3 0.0 - 0.5 K/cumm MARY JANE Comment:Testing performed by : [address] [address] Basophil abs 0.1 0.0 - 0.1 K/cumm MARY JANE Comment:Testing performed by : [address] [address] Neutrophil pct 65.7 % MARY JANE Comment: Interpretive Data Percent cell count reference ranges are not reported, since discordance with absolute values may lead to misinterpretation of CBC data. Current Interpretive Data was last revised on 2017. Testing performed by: [address] [address] Imm gran pct 0.5 % MARY JANE Comment: Interpretive Data Percent cell count reference ranges are not reported, since discordance with absolute values may lead to misinterpretation of CBC data. Current Interpretive Data was last revised on 2017. Testing performed by: [address] [address] Lymphocyte pct 24.6 % MARY JANE Comment: Interpretive Data Percent cell count reference ranges are not reported, since discordance with absolute values may lead to misinterpretation of CBC data. Current Interpretive Data was last revised on 2017. Testing performed by: [address] [address] Monocyte pct 6.5 % MARY JANE Comment: Interpretive Data Percent cell count reference ranges are not reported, since discordance with absolute values may lead to misinterpretation of CBC data. Current Interpretive Data was last revised on 2017. Testing performed by: [address] [address] Eosinophil pct 2.2 % MARY JANE Comment: Interpretive Data Percent cell count reference ranges are not reported, since discordance with absolute values may lead to misinterpretation of CBC data. Current Interpretive Data was last revised on 2017. Testing performed by: [address] [address] Basophil pct 0.5 % MARY JANE Comment: Interpretive Data Percent cell count reference ranges are not reported, since discordance with absolute values may lead to misinterpretation of CBC data. Current Interpretive Data was last revised on 2017. Testing performed by: [address] [address] Blood 06/21/2022 12:5 0 AM GROUP CONTRACT ANALYST 06/21/2022 1:15 AM GROUP CONTRACT ANALYST Mohini Dela Cruz MD LAB BLOOD ORDERABLES Deann l Result [facility] [address] [facility] Department [place] [address] * Influenza A/B, RSV, and COVID-19 PCR Nasopharyngeal (06/21/2022 12:50 AM GROUP CONTRACT ANALYST) Pathologist [facility] COVID-19 RNA Negative Negative MARY JANE Comment:Testing performed by : [address] [address] Influenza A RNA Negative Negative [facility] Comment:Testing performed by : [address] [address] Influenza B RNA Negative Negative [facility] Comment:Testing performed by : [address] [address] RSV RNA Negative Negative [facility] Comment: Interpretive data: This test is performed using the [employer] Xpert Xpress CoV-2/Flu/RSV plus assay. This is [...] Data last revised 2021. Testing performed by: [address] [address] Nasopharyngeal 06/21/2022 12 :50 AM GROUP CONTRACT ANALYST 06/21/2022 1:04 AM GROUP CONTRACT ANALYST Narrative MARY JANE - 06/21/2022 2:10 AM GROUP CONTRACT ANALYST Is the Patient experiencing symptoms consistent with COVID?->Yes Date of Symptom Onset->06/19/22 Reason for testing?->Symptomatic Result [facility] Mohini Dela Cruz MD LAB MICROBIOLOGY - GENERA L ORDERABLES Final Result Performing Organization Address [facility] Co de Phone Number [address] [address] * aPTT (06/21/2022 12:50 AM GROUP CONTRACT ANALYST) aPTT 29 22 - 37 sec MARY JANE Comment: Interpretive data aPTT test has not been evaluated for monitoring heparin therapy. The anti-Xa is the preferred test. Current interpretive data was last revised on 2019. Testing performed by: [address] [address] Blood 06/21/2022 12:5 0 AM GROUP CONTRACT ANALYST 06/21/2022 1:15 AM GROUP CONTRACT ANALYST Result [facility] Mohini Dela Cruz MD LAB BLOOD ORDERABLES Deann l Result Performing Organization Address [facility] Co de Phone Number [address] [place] [address] * Protime-INR (06/21/2022 12:50 AM GROUP CONTRACT ANALYST) PT 14.1 12.0 - 14.6 sec MARY JANE Comment:Testing performed by : [address] [address] INR 1.1 0.9 - 1.2 MARY JANE Comment: Ref Range High Interpretive data Oral anticoagulant therapeutic ranges: Venous thromboembolism prophylaxis or treatment: 2.0-3.0 CARDIOLOGY Standard range: 2.0-3.0 High-intensity range: 2.5-3.5 Refer to indication-specific guidelines for appropriate target ranges for prosthetic heart valve replacement. Current interpretive data was last revised on 2019. Testing performed by: [address] [address] Blood 06/21/2022 12:5 0 AM GROUP CONTRACT ANALYST 06/21/2022 1:15 AM GROUP CONTRACT ANALYST Result [facility] Mohini Dela Cruz MD LAB BLOOD ORDERABLES Deann l Result Performing Organization Address [facility] de Phone Number [facility] [address] [facility] [place] [address] * (ABNORMAL) Troponin T high-sensitivity series (baseline, 2hr, 4hr, 6hr) (06/21/2022 12:50 AM GROUP CONTRACT ANALYST) Trop T hs 18(H) <=14 ng/L MARY JANE Comment: Interpretive Data For further hscTnT resources including the diagnostic algorithm and an aid in interpretation, copy and paste this link: [email or web address] Current Interpretive Data last revised 2020. Testing performed by: [address] [address] Blood 06/21/2022 12:5 0 AM GROUP CONTRACT ANALYST 06/21/2022 1:15 AM GROUP CONTRACT ANALYST Mohini Dela Cruz MD LAB BLOOD ORDERABLES Deann l Result Performing Organization Address [facility] Co de Phone Number [facility] [address] [facility] [place] [address] * (ABNORMAL) Comprehensive metabolic panel (06/21/2022 12:50 AM GROUP CONTRACT ANALYST) Pathologist [facility] Sodium 138 135 - 145 mmol/L MARY JANE Comment:Testing performed by : [address] [address] Potassium, pl 3.8 3.3 - 4.9 mmol/L MARY JANE Comment:Testing performed by : [address] [address] Chloride 100 97 - 110 mmol/L MARY JANE Comment:Testing performed by : [address] [address] CO2 28 22 - 32 mmol/L MARY JANE Comment:Testing performed by : [address] [address] Anion gap 10 2 - 15 mmol/L MARY JANE Comment:Testing performed by : [address] [place] [address] BUN 19 8 - 25 mg/dL MARY JANE Comment:Testing performed by : [address] [address] Creatinine 0.70 0.60 - 1.10 mg/dL MARY JANE Comment:Testing performed by : [address] [address] Glucose 140 70 - 199 mg/dL MARY JANE Comment: [...] was last revised 2022. Testing performed by: [address] [address] Calcium 10.1 8.5 - 10.3 mg/dL [facility] Comment:Testing performed by : [address] [address] Bilirubin, total 0.4 0.1 - 1.2 mg/dL [facility] Comment:Testing performed by : [address] [address] Protein, pl 8.7(H) 6.5 - 8.5 g/dL MARY JANE Comment:Testing performed by : [address] [address] Albumin 4.1 3.5 - 5.0 g/dL [facility] Comment:Testing performed by : [address] [address] Alk phos 107 40 - 130 Units/L MARY JANE Comment:Testing performed by : [address] [address] ALT 22 7 - 45 Units/L MARY JANE Comment:Testing performed by : [address] [address] AST 20 10 - 45 Units/L MARY JANE PHAM Comment:Testing performed by : [address] [address] Blood 06/21/2022 12:5 0 AM GROUP CONTRACT ANALYST 06/21/2022 1:15 AM GROUP CONTRACT ANALYST Mohini Dela Cruz MD LAB BLOOD ORDERABLES Deann colby Result MARY JANE [address] [facility] [place] [address] * (ABNORMAL) CBC with auto differential (06/21/2022 12:50 AM GROUP CONTRACT ANALYST) WBC 12.5(H) 3.8 - 9.9 K/cumm MARY JANE PHAM Comment:Testing performed by : [address] [address] Hgb 13.5 11.9 - 15.5 g/dL MARY JANE Comment:Testing performed by : [address] [address] Hct 42.5 35.6 - 45.5 % MARY JANE PHAM Comment:Testing performed by : [address] [address] Plt 316 150 - 400 K/cumm MARY JANE Comment:Testing performed by : [address] [address] MPV 9.4 9.1 - 12.3 fL MARY JANE PHAM Comment:Testing performed by : [address] [address] RBC 4.75 3.90 - 5.20 M/cumm MARY JANE PHAM Comment:Testing performed by : [address] [address] MCV 89.5 81.3 - 96.4 fL MARY JANE PHAM Comment:Testing performed by : [address] [address] MCH 28.4 27.1 - 33.3 pg MARY JANE PHAM Comment:Testing performed by : [address] [address] MCHC 31.8(L) 32.3 - 35.7 g/dL MARY JANE PHAM Comment:Testing performed by : [address], [address] RDW CV 14.4 11.1 - 14.9 % MARY JANE Comment:Testing performed by : [address], [address] RDW SD 46.6 35.7 - 48.1 fL MARY JANE PHAM Comment:Testing performed by : [address], [address] NRBC abs 0.00 0.00 - 0.01 K/cumm MARY JANE Comment:Testing performed by : [address], [address] Blood 06/21/2022 12:5 0 AM GROUP CONTRACT ANALYST 06/21/2022 1:15 AM GROUP CONTRACT ANALYST us Mohini Dela Cruz MD LAB BLOOD ORDERABLES Deann l Result Performing Organization Address City/[facility] Co de Phone Number [facility] [address] [facility] Department [place] [address] * ECG 12 lead (06/21/2022 12:42 AM GROUP CONTRACT ANALYST) Ventricular Rate EKG/Min 94 BPM [facility] Atrial Rate 94 BPM [facility] OR-Interval (MSEC) 130 ms [facility] QRS-Interval (MSEC) 86 ms [facility] QT-Interval (MSEC) 364 ms [facility] QTc 455 ms [facility] P [place] 40 degrees [facility] R [place] 10 degrees [facility] T [place] 61 degrees [facility] Diagnosis Normal sinus rhythm Normal ECG When compared with ECG of 14-MAY-2022 10:12, Premature atrial complexes are no longer Present [facility] 06/21/2022 12:4 2 AM GROUP CONTRACT ANALYST 06/21/2022 7:15 PM GROUP CONTRACT ANALYST us Mohini Dela Cruz MD ECG ORDERABLES Final Res ult Performing Organization Address City/[facility]/ZIP Co de Phone Number [facility] documented in this encounter Visit Diagnoses Diagnosis Shortness of breath- Primary Nausea Nausea alone Hypertension, unspecified type documented in this encounter Administered Medications Inactive Administered Medications - up to 3 most recent administrations Medication Order MAR Action Action Date Dose Rate Site famotidine (PEPCID) injection 40 mg 40 mg, intravenous, Administer over 2 Minutes, Once, On Mon06/21/22 at 0457, For 1 dose, Indications: gastroesophageal reflux diseaseIndications:gastr oesophageal reflux disease Given 06/21/2022 5:03 AM GROUP CONTRACT ANALYST 40 mg HYDROcodone-acetaminophe n (NORCO) 7.5-325 mg per tablet 1 tablet 1 tablet, oral, Once, On Mon06/21/22 at 0745, For 1 dose, Indications: PainIndications:Pain Given 06/21/2022 7:54 AM GROUP CONTRACT ANALYST 1 tablet ioversoL (OPTIRAY 350) syringe 100 mL 100 mL, intravenous, Once in imaging, contrast, Starting on Mon06/21/22 at 0624, For 1 dose Contrast Given 06/21/2022 6:24 AM GROUP CONTRACT ANALYST 80 mL Right Antecubital ondansetron (ZOFRAN) injection 4 mg 4 mg, intravenous, Administer over 2 Minutes, Once, On Mon06/21/22 at 0457, For 1 dose Given 06/21/2022 5:02 AM GROUP CONTRACT ANALYST 4 mg ondansetron (ZOFRAN) injection 4 mg 4 mg, intravenous, Administer over 2 Minutes, Once, On Mon06/21/22 at 0740, For 1 dose, Indications: Nausea, VomitingIndications:Naus ea,Vomiting Given 06/21/2022 7:54 AM GROUP CONTRACT ANALYST 4 mg documented in this encounter Active and Recently Administered Medications Times are shown in GROUP CONTRACT ANALYST. Scheduled Medication Order 06/19/2022 06/20/2022 06/21/2022 famotidine (PEPCID) injection 40 mg (COMPLETED) 40 mg, intravenous, Administer over 2 Minutes, Once, On Mon06/21/22 at 0457, For 1 dose, Indications: gastroesophageal reflux disease 0503 (Given - Provid er: Isaías Barnes RN) HYDROcodone-acetaminophen (NORCO) 7.5-325 mg per tablet 1 tablet (COMPLETED) 1 tablet, oral, Once, On Mon06/21/22 at 0745, For 1 dose, Indications: Pain 0754 (Given - Provid er: Virgie Priest, NURIS) ondansetron (ZOFRAN) injection 4 mg (COMPLETED) 4 mg, intravenous, Administer over 2 Minutes, Once, On Mon06/21/22 at 0457, For 1 dose 0502 (Given - Provid er: Isaías Barnes, NURIS) ondansetron (ZOFRAN) injection 4 mg (COMPLETED) 4 mg, intravenous, Administer over 2 Minutes, Once, On Mon06/21/22 at 0740, For 1 dose, Indications: Nausea, Vomiting 0754 (Given - Provid er: Virgie Priest, NURIS) PRN Medication Order 06/19/2022 06/20/2022 06/21/2022 ioversoL (OPTIRAY 350) syringe 100 mL (COMPLETED) 100 mL, intravenous, Once in imaging, contrast, Starting on Mon06/21/22 at 0624, For 1 dose 0624 (Contrast Given - Provider: David De RT) documented in this encounter Care Teams Electronics Assembler And Tester Relationship Specialty Start Date End Date Justen Gale MD 2 [facility] [address] [place] [address] PCP - General 10/09/17 Liu Jerez MD Consulting Physician Gastroenterology 07/28/17 [place] [address] [address] [facility] [address] [place] [address] Consulting Physician Pulmonary Disease 08/03/17 Khris Arthur MD [address] [facility] [address] [place], [place] [id number] Medical Oncologist/Animal Trainer Medical Oncology 10/23/17 [place] [address] [facility] [facility] [address] [place] [address] Surgeon Orthopedic Surgery 10/23/17 [place] [address] [address] [facility] [address] [place] [address] Consulting Physician Pain Management 10/23/17 [place] [address] [facility] [facility] [address] [place] [address] Referring Physician General Surgery 01/26/18 [place] [address] [address] [facility] [address] [place] [address] Consulting Physician Neurology 01/26/18 documented as of this encounter
--- OUTSIDE RECORDS SUMMARY | 2024-04-26 04:20 | XMS_ITS | Encounter Summary ---
Author Organization [facility] Medical Group Address [address] [facility] [address] [place] [address] Care Team Providers Care Heater Planer Operator Name Role Phone Liu Jerez MD Unavailable Albert Corbin MD Unavailable Justen Gale MD Primary Care Provider Khris Atrhur MD Unavailable [phone] Ko Melendez MD Unavailable John Paul Moyer MD Unavailable Annel Rod MD Unavailable Anali MARSHALL MD, Carlos M. Unavailable [phone] Encounter Details Date Type Department Care Team (Late st Contact Info) Description 03/19/2022 Orders Only [facility] Medical [facility] Cardiology [address] [place] [address] Melvin Barnes MD [address] [facility] [address] [facility] [address] [place] [address] Social History Tobacco Use Types [...] in a skilled nursing (including now)? 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 Gender Identity Not on file Sexual Orientation Not on file documented as of this encounter Plan of Treatment Not on file documented as of this encounter Procedures Procedure Name Priority Date/Time Associated Diagnosis Comments CARDIOLOGY DOCUMENT SCAN Routine 03/19/2022 documented in this encounter Results * Cardiology Document Scan (03/19/2022) Anatomical Region Laterality Modality Other us Melvin Barnes MD CV [facility] Final Result documented in this encounter Visit Diagnoses Not on filedocumented in this encounter Additional Health Concerns Infection Onset Date Last Indicated Resolved Time COVID: Recovered 02/10/2022 02/10/2022 06/10/2022 3:05 AM PILLOWCASE CLEANER documented as of this encounter Care Teams Heater Planer Operator Relationship Specialty Start Date End Date Justen Gale MD 2 [facility] [address] [place] [address] PCP - General 10/09/17 Liu Jerez MD Consulting Physician Gastroenterology 07/28/17 [place] [address] [facility] [address] [place] [address] Consulting Physician Pulmonary Disease 08/03/17 Khris Arthur MD [address] [facility] [address] [place] [address] Medical Oncologist/Welding Engineer Medical Oncology 10/23/17 [place] [address] [facility] [facility] [address] [place] [address] Surgeon Orthopedic Surgery 10/23/17 [place] [address] [facility] [address] [place] [address] Consulting Physician Pain Management 10/23/17 [place] [address] [facility] [address] [place] [address] Referring Physician General Surgery 01/26/18 [place] [address] [facility] [address] [place] [address] Consulting Physician Neurology 01/26/18 documented as of this encounter
--- OUTSIDE RECORDS SUMMARY | 2024-04-26 04:21 | XMS_ITS | Encounter Summary ---
Author Organization [facility] Healthcare Address [address] [place] [address] Care Team Providers Care Commercial Litigation Associate Name Role Phone Liu Jerez MD Unavailable Albert Corbin MD Unavailable Justen Gale MD Primary Care Provider Khris Arthur MD Unavailable [phone] Ko Melendez MD Unavailable John Paul Moyer MD Unavailable Annel Rod MD Unavailable Anali MARSHALL MD, Carlos M. Unavailable Encounter Details Date Type Department Care Team (Late st Contact Info) Description 10/30/2021 Telephone [facility] Emergency Department [address] [place] [id number] Isidra Goel RN Social History Tobacco Use Types Packs/Day [...] more drinks on one occasion? 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 Gender Identity Not on file Sexual Orientation Not on file documented as of this encounter Plan of Treatment Not on file documented as of this encounter Visit Diagnoses Not on filedocumented in this encounter Care Teams Commercial Litigation Associate Relationship Specialty Start Date End Date Justen Gale MD [address] [address] PCP - General 10/09/17 Liu Jerez MD Consulting Physician Gastroenterology 07/28/17 [place] [address] [facility] [facility] [address] [place] [address] Consulting Physician Pulmonary Disease 08/03/17 Khris Arthur MD [address] [facility] [address] [place] [address] Medical Oncologist/[place] Medical Oncology 10/23/17 [place] [address] [facility] [facility] [address] [place] [address] Surgeon Orthopedic Surgery 10/23/17 [place] [address] [facility] [address] [place] [address] Consulting Physician Pain Management 10/23/17 [place] [address] [facility] [address] [place] [address] Referring Physician General Surgery 01/26/18 [place] [address] [facility] [address] [place] [address] Consulting Physician Neurology 01/26/18 documented as of this encounter
--- OUTSIDE RECORDS SUMMARY | 2024-04-26 04:21 | XMS_ITS | Encounter Summary ---
Author Organization [facility] Healthcare Address [address] [place] [address] Care Team Providers Care Fx Artist Name Role Phone Liu Jerez MD Unavailable Albert Corbin MD Unavailable Justen Gale MD Primary Care Provider Khris Arthur MD Unavailable [phone] Ko Melendez MD Unavailable John Paul Moyer MD Unavailable [phone] Annel Rod MD Unavailable Anali MARSHALL MD, Carlos M. Unavailable Reason for Visit * Reason Comments Dizziness Encounter Details Date Type Department Care Team (Late st Contact Info) Description 01/28/2022 5:24 PM CDT - 01/28/2022 9:01 PM CDT Emergency [facility] Emergency Department [facility] [place] [address] Jeremías Sheppard MD [facility] 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 Gender Identity Not on file Sexual Orientation Not on file documented as of this encounter Last Filed Vital Signs Vital Sign Reading Time Taken Comments Blood Pressure 121/61 01/28/2022 8:46 PM CDT Pulse 81 01/28/2022 8:46 PM CDT Temperature 36.4 ??C (97.6 ??F) 01/28/2022 4:43 PM CD T Respiratory Rate 18 01/28/2022 8:46 PM CDT Oxygen Saturation 95% 01/28/2022 8:46 PM CDT Inhaled Oxygen Concentration - - Weight 130.2 kg (287 lb) 01/28/2022 4:43 PM CDT Height - - Body Mass Index 54.23 12/23/2021 6:08 AM CDT documented in this encounter Discharge Instructions * Attachments The following attachments cannot be sent through Care Everywhere. * Vertigo (AfterCare(R) Instructions(ER/ED)) (Iranian) documented in this encounter Medications at Time [...] Refills Last Filled Start Date End Date meclizine (ANTIVERT) 25 mg tablet Take 1 tablet (25 mg total) by mouth 3 (three) times a day as needed for dizziness 30 tablet 01/28/2022 3 documented in this encounter Discharge Disposition Disposition Code Departure Means Destination Discharge to home or self care documented in this encounter ED Notes * Jeremías Sheppard MD - 01/28/2022 6:22 PM CDT HPI Chief Complaint Patient presents with Dizziness HPI 66-year-old female with history of hypertension, diabetes, DVT/PE on Xarelto who presents with dizziness. Patient states she woke up last night and felt very dizzy. Dizziness worsens with head movements and gets better when staying still. . No abdominal pain dysuria fever cough chest pain. 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 10/17/2019 Thyroid nodule 08/07/2018 Dyslipidemia History of breast cancer Intractable pain CVA (cerebral vascular accident) ([facility]) ([facility]) 01/24/2018 Anxiety and depression 11/12/2017 Uncontrolled type 2 diabetes mellitus with hyperglycemia, with long-term current use of insulin ([facility]) 11/06/2017 Allergy to drug 11/06/2017 Dysuria 10/26/2017 Acute left-sided low back pain with left-sided sciatica 10/23/2017 Type 2 diabetes mellitus with neurologic complication, without long-term current use of insulin ([facility]) (HCC) 10/23/2017 Hypertension 10/23/2017 Long-term current use of opiate analgesic 10/23/2017 Lumbosacral spondylosis without myelopathy 10/23/2017 Radiculopathy, lumbosacral region 10/23/2017 Spinal stenosis of lumbar region without neurogenic claudication 10/23/2017 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 Type 2 diabetes mellitus without complication ([facility]) ([facility]) Constipation Malignant neoplasm of upper-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 ([facility]) ([facility]) 10/17/2017 Cancer of overlapping sites of left female breast ([facility]) ([facility]) 10/13/2017 Chronic anticoagulation Restless leg syndrome Chest pressure 08/01/2017 Positive blood culture 08/01/2017 Hyponatremia 08/01/2017 Diet-controlled diabetes mellitus ([facility]) ([facility]) 08/01/2017 LUL (obstructive sleep apnea) 08/01/2017 History of DVT (deep vein thrombosis) 08/01/2017 History of pulmonary embolism 08/01/2017 Essential hypertension Generalized weakness 07/27/2017 Dyspnea 07/27/2017 Unintentional weight loss 07/27/2017 Acute cystitis without hematuria 07/27/2017 Nausea and vomiting 07/26/2017 Pulmonary embolism ([facility]) 08/09/2016 Lymphedema of left upper extremity 08/09/2016 Pain of foot 01/26/2015 Arthralgia of ankle 01/26/2015 Rash 11/11/2014 Cellulitis of breast 11/11/2014 Restless legs syndrome 03/12/2013 Pain of lower extremity 03/12/2013 Past Medical History: Diagnosis Date Adiposity obesity Breast CA ([facility]) (HCC) Cancer ([facility]) (HCC) breast CHF (congestive heart failure) ([facility]) (HCC) Depression Depression Diabetes (HCC) Disorder of thyroid Thyroid disease DVT (deep venous thrombosis) ([facility]) (HCC) HX OTHER MEDICAL restless leg syndrome HX OTHER MEDICAL RLS Hypertension Hypertension Osteoarthritis osteoarthritis PE (pulmonary thromboembolism) ([facility]) (HCC) Sleep apnea Past Surgical History: Procedure [...] not drink Frequency of Binge Drinking: Never Alcohol Use: Not At Risk Frequency of Alcohol Consumption: Never Average Number of Drinks: Patient does not drink Frequency of Binge Drinking: Never Social History Social History Narrative Not on file Review of Systems Review of Systems Constitutional: Negative for activity change, appetite change, chills, fatigue and fever. HENT: Negative for sore throat. Respiratory: Negative for cough and shortness of breath. Cardiovascular: Negative for chest pain. Gastrointestinal: Negative for abdominal pain, diarrhea, nausea and vomiting. Genitourinary: Negative for dysuria. Musculoskeletal: Negative for back pain. Skin: Negative for rash. Neurological: Positive for dizziness. Negative for syncope, weakness, light- headedness and headaches. Physical Exam ED Triage Vitals Temp Pulse Resp BP SpO2 01/28/22 1643 01/28/22 1643 01/28/22 1643 01/28/22 1643 01/28/22 1643 36.4 ??C (97.6 ??F) 89 20 167/74 97 % Temp src Heart Rate Source Patient Position BP Location FiO2 (%) 01/28/22 1643 01/28/22 1811 01/28/22 1811 01/28/221810 -- Oral Monitor HOB 30 degrees Right arm Height Height Method Weight Weight Method -- -- 01/28/221642 -- 130.2 kg (287 lb) Physical Exam Vitals and nursing note reviewed. Constitutional: General: She is not in acute distress. Appearance: Normal appearance. She is well-developed. She is not ill-appearing, toxic-appearing or diaphoretic. HENT: Head: Normocephalic and atraumatic. Right Ear: External ear normal. Left Ear: External ear normal. Nose: Nose normal. Mouth/Throat: Mouth: Mucous membranes are moist. Eyes: Extraocular Movements: Extraocular movements intact. Conjunctiva/sclera: Conjunctivae normal. Cardiovascular: Rate and Rhythm: Normal rate. Heart sounds: Normal heart sounds. Pulmonary: Effort: Pulmonary effort is normal. No respiratory distress. Breath sounds: Normal breath sounds. No wheezing, rhonchi or rales. Abdominal: General: Abdomen is flat. There is [...] deficit. Motor: No weakness. Coordination: Coordination normal. Psychiatric: Mood and Affect: Mood normal. MDM MDM Medical Decision Making Clinical problems/dx: Karly Marques is a 66 y.o. female who presents with dizziness. ED Course -Patient seen and evaluated, available studies reviewed -Prior available records reviewed, triage notes reviewed. -dizziness is positional, recently had covid, sxs could be due to inner ear inflammation. HINTS exam negative, no focal deficits, normal finger to nose and heel to de leon. Will start meclizine. Pt instructed to return if sxs worsen. ED Course as of 01/28/222040 Time: 01/28 1823 Comment: [id number]: nsr 97 bpm, PACs, normal intervals, no ischemic changes By: Jeremías Sheppard MD Final diagnoses: Dizziness Jeremías Sheppard MD 01/28/222040 * Mary Flowers RN - 01/28/2022 4:37 PM CDT I'm having positional dizzy spells. I saw my primary and they said it was probably my inner ear. It went away but it's bad and worse this time. I'm nauseous. When I move it feels like the room is going up and down. I feel a little sob too. I did have covid a couple weeks ago. Wheelchair to triage. S/s onset last night. Left limb alert. documented in this encounter Plan of Treatment Not on file documented as of this encounter Procedures Procedure Name Priority Date/Time Associated Diagnosis Comments URINALYSIS AND REFLEX TO MICROSCOPIC AND CULTURE STAT 01/28/2022 7:48 PM CDT URINALYSIS, MICROSCOPIC ONLY STAT 01/28/2022 7:48 PM CDT TROPONIN T HIGH-SENSITIVITY 2-HOUR Timed 01/28/2022 6:[address] HEAD WO CONTRAST ED 01/28/2022 5 :11 PM CDT XR CHEST 1 VIEW ED 01/28/2022 5:09 PM CDT ECG 12-LEAD STAT 01/28/2022 4:59 PM CDT TROPONIN T HIGH-SENSITIVITY SERIES (BASELINE, 2HR, 4HR, 6HR) STAT 01/28/2022 4:51 PM CDT EGFR STAT 01/28/2022 4:51 PM CDT DIFFERENTIAL AUTO STAT 01/28/2022 4:5 1 PM CDT CBC WITH AUTO DIFFERENTIAL STAT 01/28/2022 4:51 PM CDT COMPREHENSIVE METABOLIC PANEL STAT 01/28/2022 4:51 PM CDT documented in this encounter Results * (ABNORMAL) Urinalysis, microscopic only (01/28/2022 7:48 PM CDT) WBC, ur 0-5 0 - 5 /HPF MARY JANE Comment:Testing performed by : [address] [address] RBC, ur 0-2 0 - 2 /HPF MARY JANE Comment:Testing performed by : [address] [address] Mucous, ur Present(A) MARY JANE Comment:Testing performed by : [address] [address] Hyaline casts, ur 1-5 0 - 10 /LPF MARY JANE Comment:Testing performed by : [address] [address] Culture Reflex Comment Reflex conditions for urine culture (WBC >10) not met. MARY JANE Comment:Testing performed by : [address] [address] Urine 01/28/2022 7:48 PM CDT 01/28/2022 7:59 PM CDT us Jeremías Sheppard MD LAB URINE ORDERABLES Final Re sult MARY JANE [address] [facility] [place] [address] * (ABNORMAL) Urinalysis reflex to microscopic and culture Urine (01/28/2022 7:48 PM CDT) Color, ur Yellow Yellow MARY JANE Comment:Testing performed by : [address] [address] Clarity, ur Cloudy(A) Clear MARY JANE Comment:Testing performed by : [address] [address] Specific gravity, ur 1.027 1.003 - 1.030 MARY JANE Comment:Testing performed by : [address] [address] pH, urine 5.0 MARY JANE Comment:Testing performed by : [address] [address] Protein, ur ql Negative Negative MARY JANE Comment:Testing performed by : [address] [address] Glucose, ur ql Negative Negative MARY JANE Comment:Testing performed by : [address] [address] Ketones, ur Negative Negative MARY JANE Comment:Testing performed by : [address] [address] Bilirubin, ur Negative Negative MARY JANE Comment:Testing performed by : [address] [address] Blood, ur Negative Negative MARY JANE Comment:Testing performed by : [address] [address] Urobilinogen, ur <2.0 <2.0 mg/dL MARY JANE Comment:Testing performed by : [address] [address] Nitrite, ur Negative Negative MARY JANE Comment:Testing performed by : [address] [place]., [address] Leukocyte esterase, ur Negative Negative MARY JANE Comment:Testing performed by : [address] [address] UA reflex comment Reflex to microscopic UA will be performed. MARY JANE Comment:Testing performed by : [address] [address] Urine 01/28/2022 7:48 PM CDT 01/28/2022 7:59 PM CDT Narrative MARY JANE - 01/28/2022 8:06 PM CDT ?? Urine pH is affected by diet, medications, systemic acid-base disturbances, and renal tubular function. ??pH may affect urinary stone formation. ??For example, urine pH below 6.0 may help reduce the tendency for calcium phosphate stones and pH greater than 6.0 may reduce the tendency for uric acid stone formation. Source: [employer]. Last revised 05-04-2017 Jeremías Sheppard MD LAB MICROBIOLOGY - GENERAL OR DERABLES Final Result MARY JANE [address] [facility] [place] [address] * (ABNORMAL) Troponin T high-sensitivity 2-hour (01/28/2022 6:46 PM CDT) Trop T hs 22(H) <=14 ng/L MARY JANE Comment: Interpretive Data For further hscTnT resources including the diagnostic algorithm and an aid in interpretation, copy and paste this link: https://nrl.testcatalog.org/show/hsTrop Current Interpretive Data last revised 2020. Testing performed by: [address] [address] Trop T hs delta -1 ng/L MARY JANE Comment:Testing performed by : [address] [address] Trop T hs interp Insignificant MARY JANE Comment:Testing performed by : [address] [address] Blood 01/28/2022 6:46 PM CDT 01/28/2022 6:52 PM CDT us Blaze Armenta NP LAB BLOOD ORDERABLES Final Resul t MARY JANE [facility] [address] [facility] [place] [address] * CT Head WO Contrast (01/28/2022 5:11 PM CDT) Anatomical Region Laterality Modality Head and Neck N/A Computed Tomogra phy 01/28/2022 5:33 PM CDT Narrative 01/28/2022 5:39 PM CDT EXAM DESCRIPTION: ?? CT HEAD WO CONTRAST REASON FOR STUDY: ?? Dizziness, persistent/recurrent, cardiac or vascular cause suspected ?? I'm having positional dizzy spells. I saw my primary and they said it was probably my inner ear. It went away but it's bad and worse this time. I'm nauseous. When I move it feels like the room is going up and down. I feel a little sob too. I did have ?? covid a couple weeks ago. ??Wheelchair to triage. S/s onset last night. Left limb alert. ?? TECHNIQUE: Axial images acquired through the brain without intravenous contrast. ??Images stored on PACS. ?? Automated exposure control was used as a dose optimization technique for this examination. COMPARISON: ?? None FINDINGS: BRAIN: ?? No hemorrhage, edema or mass effect. No recent infarct. ? Normal white matter. ? EXTRA-AXIAL SPACES: ?? No fluid collections. No masses. CALVARIUM: ?? No fracture. SINUSES/MASTOIDS: ?? No fluid or mucosal thickening. ORBITS: ?? No significant abnormality. OTHER: ?? No other significant abnormality. IMPRESSION: ?? No acute intracranial findings. THIS IS AN ELECTRONICALLY VERIFIED FINAL REPORT 01/28/2022 5:39 PM - Electronically signed by ??Patrick Navarro M.D. KT: DEANA D: ??01/28/2022 5:39 PM T: ??01/28/2022 5:39 PM Report ID: [id number] Reading Location: ??[id number] Procedure Note Patrick Navarro MD - 01/28/2022 EXAM DESCRIPTION: CT HEAD WO CONTRAST REASON FOR STUDY: Dizziness, persistent/recurrent, cardiac or vascularcause suspected I'm having positional dizzy spells. I saw my primary and they said it was probably my inner ear. It went away but it's bad and worse this time. I'm nauseous. When I move it feels like the room is going up and down. I feela little sob too. I did have covid a couple weeks ago. Wheelchair totriage. S/s onset last night. Left limb alert. TECHNIQUE: Axial images acquired through the brain without intravenous contrast. Images stored on PACS. Automated exposure control was used asa dose optimization technique for this examination. COMPARISON: None FINDINGS: BRAIN: No hemorrhage, edema or mass effect. No recent infarct. Normal white matter. EXTRA-AXIAL SPACES: No fluid collections. No masses. CALVARIUM: No fracture. SINUSES/MASTOIDS: No fluid or mucosal thickening. ORBITS: No significant abnormality. OTHER: No other significant abnormality. IMPRESSION: No acute intracranial findings. THIS IS AN ELECTRONICALLY VERIFIED FINAL REPORT 01/28/2022 5:39 PM - Electronically signed by Patrick Navarro M.D. KT: DEANA Report ID: [id number] Reading Location: [id number] Blaze Armenta NP IMG CT PROCEDURES Final Result * XR Chest 1 Vw Portable (01/28/2022 5:09 PM CDT) Anatomical Region Laterality Modality Body, Chest N/A Computed Radiogr aphy 01/28/2022 5:11 PM CDT Narrative 01/28/2022 5:11 PM CDT EXAM DESCRIPTION: ?? XR CHEST 1 VIEW REASON FOR STUDY: ?? chest pain ?? having positional dizzy spells. I saw my primary and they said it was probably my inner ear. It went away but it's bad and worse this time. I'm nauseous. When I move it feels like the room is going up and down. I feel a little sob too. I did have covid ?? a couple weeks ago. ? Wheelchair to triage. S/s onset last night. Left limb alert. ?? TECHNIQUE: ?? One ??radiographic view of the chest acquired. COMPARISON: 10/04/2018. FINDINGS: LUNGS/PLEURA: ?? No focal consolidation or pneumothorax. No pleural effusion. HEART/MEDIASTINUM: ?? Heart size is normal. Normal mediastinal and hilar contours. HARDWARE/LINES/TUBES: ?? None. BONES: ?? No acute findings. OTHER: ?? No other significant finding. IMPRESSION: ?? No acute cardiopulmonary disease. THIS IS AN ELECTRONICALLY VERIFIED FINAL REPORT 01/28/2022 5:11 PM - Electronically signed by ??Teto English M.D. CH: D: ??01/28/2022 5:11 PM T: ??01/28/2022 5:11 PM Report ID: [id number] Reading Location: ??[id number] Procedure Note Teto English Jr., MD - 01/28/2022 EXAM DESCRIPTION: XR CHEST 1 VIEW REASON FOR STUDY: chest pain having positional dizzy spells. I saw my primary and they said it wasprobably my inner ear. It went away but it's bad and worse this time. I'm nauseous. When I move it feels like the room is going up and down. I feel a littlesob too. I did have covid a couple weeks ago. Wheelchair to triage. S/s onset last night. Left limb alert. TECHNIQUE: One radiographic view of the chest acquired. COMPARISON: 10/04/2018. FINDINGS: LUNGS/PLEURA: No focal consolidation or pneumothorax. Nopleural effusion. HEART/MEDIASTINUM: Heart size is normal. Normal mediastinal and hilar contours. HARDWARE/LINES/TUBES: None. BONES: No acute findings. OTHER: No other significant finding. IMPRESSION: No acute cardiopulmonary disease. THIS IS AN ELECTRONICALLY VERIFIED FINAL REPORT 01/28/2022 5:11 PM - Electronically signed by Teto English M.D. CH: Report ID: [id number] Reading Location: [id number] Blaze Armenta NP IMG XR PROCEDURES Final Result * ECG 12 lead (01/28/2022 4:59 PM CDT) Pathologist [facility] Ventricular Rate EKG/Min 97 BPM [facility] Atrial Rate 97 BPM [facility] NM-Interval (MSEC) 148 ms [facility] QRS-Interval (MSEC) 88 ms [facility] QT-Interval (MSEC) 372 ms [facility] QTc 472 ms [facility] P Iona 23 degrees [facility] R Iona -1 degrees [facility] T Iona 32 degrees [facility] Diagnosis Sinus rhythm with Premature atrial complexes Non-specific T wave changes noted Abnormal ECG When compared with ECG of 29-OCT-2021 19:44, Premature atrial complexes are now Present [facility] 01/28/2022 4:59 PM CDT 01/29/2022 12:33 PM CDT Blaze Armenta NP ECG ORDERABLES Final Result [facility] * eGFR (01/28/2022 4:51 PM CDT) Pathologist [facility] eGFR 96 mL/min/1. 73 m2 MARY JANE [...] was last reviewed 2021. Testing performed by: [address] [address] Blood 01/28/2022 4:51 PM CDT 01/28/2022 4:54 PM CDT us Blaze Armenta NP LAB BLOOD ORDERABLES Final Resul t MARY JANE [facility] [place] [address] * Differential, auto (01/28/2022 4:51 PM CDT) Neutrophil abs 6.1 1.7 - 6.5 K/cumm MARY JANE Comment:Testing performed by : [address] [address] Imm gran abs 0.0 0.0 - 0.1 K/cumm MARY JANE Comment:Testing performed by : [address] [address] Lymphocyte abs 2.5 0.8 - 3.3 K/cumm MARY JANE Comment:Testing performed by : [address] [address] Monocyte abs 0.8 0.2 - 0.8 K/cumm MARY JANE Comment:Testing performed by : [address] [address] Eosinophil abs 0.3 0.0 - 0.5 K/cumm MARY JANE Comment:Testing performed by : [address] [address] Basophil abs 0.0 0.0 - 0.1 K/cumm MARY JANE Comment:Testing performed by : [address] [address] Neutrophil pct 62.7 % [facility] Comment: Interpretive Data Percent cell count reference ranges are not reported, since discordance with absolute values may lead to misinterpretation of CBC data. Current Interpretive Data was last revised on 2017. Testing performed by: [address] [address] Imm gran pct 0.3 % [facility] Comment: Interpretive Data Percent cell count reference ranges are not reported, since discordance with absolute values may lead to misinterpretation of CBC data. Current Interpretive Data was last revised on 2017. Testing performed by: [address] [address] Lymphocyte pct 26.0 % [facility] Comment: Interpretive Data Percent cell count reference ranges are not reported, since discordance with absolute values may lead to misinterpretation of CBC data. Current Interpretive Data was last revised on 2017. Testing performed by: [address] [address] Monocyte pct 8.0 % [facility] Comment: Interpretive Data Percent cell count reference ranges are not reported, since discordance with absolute values may lead to misinterpretation of CBC data. Current Interpretive Data was last revised on 2017. Testing performed by: [address] [address] Eosinophil pct 2.7 % [facility] Comment: Interpretive Data Percent cell count reference ranges are not reported, since discordance with absolute values may lead to misinterpretation of CBC data. Current Interpretive Data was last revised on 2017. Testing performed by: [address] [address] Basophil pct 0.3 % [facility] Comment: Interpretive Data Percent cell count reference ranges are not reported, since discordance with absolute values may lead to misinterpretation of CBC data. Current Interpretive Data was last revised on 2017. Testing performed by: [address] [address] Blood 01/28/2022 4:51 PM CDT 01/28/2022 4:54 PM CDT [facility] BLOOD ORDERABLES Final Resul t Performing Organization Address [facility] de Phone Number MARY JANE [address] [facility] [place] [address] * (ABNORMAL) Troponin T high-sensitivity series (baseline, 2hr, 4hr, 6hr) (01/28/2022 4:51 PM CDT) Pathologist [facility] Trop T hs 23(H) <=14 ng/L MARY JANE Comment: Interpretive Data For further hscTnT resources including the diagnostic algorithm and an aid in interpretation, copy and paste this link: https://nrl.testcatalog.org/show/hsTrop Current Interpretive Data last revised 2020. Testing performed by: [address] [address] Blood 01/28/2022 4:51 PM CDT 01/28/2022 4:54 PM CDT Blaze Armenta LAB BLOOD ORDERABLES Final Resul t Performing Organization Address [facility] de Phone Number MARY JANE [address] [facility] [place] [address] * Comprehensive metabolic panel (01/28/2022 4:51 PM CDT) [facility] Sodium 142 135 - 145 mmol/L MARY JANE Comment:Testing performed by : [address] [address] Potassium, pl 4.0 3.3 - 4.9 mmol/L MARY JANE Comment:Testing performed by : [address] [address] Chloride 105 97 - 110 mmol/L MARY JANE Comment:Testing performed by : [address] [address] CO2 27 22 - 32 mmol/L MARY JANE Comment:Testing performed by : [address] [address] Anion gap 10 2 - 15 mmol/L MARY JANE Comment:Testing performed by : [address] [address] BUN 17 8 - 25 mg/dL MARY JANE Comment:Testing performed by : [address] [address] Creatinine 0.70 0.60 - 1.10 mg/dL MARY JANE Comment:Testing performed by : [address] [address] Glucose 160 70 - 199 mg/dL MARY JANE Comment: [...] was last revised 2017. Testing performed by: [address] [address] Calcium 9.8 8.5 - 10.3 mg/dL MARY JANE Comment:Testing performed by : [address] [address] Bilirubin, total 0.4 0.1 - 1.2 mg/dL MARY JANE Comment:Testing performed by : [address] [address] Protein, pl 8.2 6.5 - 8.5 g/dL MARY JANE Comment:Testing performed by : [address] [address] Albumin 4.0 3.5 - 5.0 g/dL MARY JANE Comment:Testing performed by : [address] [address] Alk phos 94 40 - 130 Units/L MARY JANE Comment:Testing performed by : [address] [address] ALT 19 7 - 45 Units/L MARY JANE Comment:Testing performed by : [address] [address] AST 23 10 - 45 Units/L MARY JANE Comment:Testing performed by : [address] [address] Blood 01/28/2022 4:51 PM CDT 01/28/2022 4:54 PM CDT Blaze Armenta NP LAB BLOOD ORDERABLES Final Resul t MARY JANE [address] [facility] [place] [address] * (ABNORMAL) CBC with auto differential (01/28/2022 4:51 PM CDT) WBC 9.7 3.8 - 9.9 K/cumm MARY JANE PHAM Comment:Testing performed by : [address] [address] Hgb 12.7 11.9 - 15.5 g/dL MARY JANE PHAM Comment:Testing performed by : [address] [address] Hct 40.8 35.6 - 45.5 % MARY JANE PHAM Comment:Testing performed by : [address] [address] Plt 293 150 - 400 K/cumm MARY JANE PHAM Comment:Testing performed by : [address] [address] MPV 9.9 9.1 - 12.3 fL MARY JANE PHAM Comment:Testing performed by : [address] [address] RBC 4.43 3.90 - 5.20 M/cumm MARY JANE PHAM Comment:Testing performed by : [address] [address] MCV 92.1 81.3 - 96.4 fL MARY JANE PHAM Comment:Testing performed by : [address] [address] MCH 28.7 27.1 - 33.3 pg MARY JANE PHAM Comment:Testing performed by : [address] [place] [address] MCHC 31.1(L) 32.3 - 35.7 g/dL MARY JANE PHAM Comment:Testing performed by : [address] [address] RDW CV 13.9 11.1 - 14.9 % MARY JANE PHAM Comment:Testing performed by : [address] [address] RDW SD 47.1 35.7 - 48.1 fL MARY JANE PHAM Comment:Testing performed by : [address] [address] NRBC abs 0.00 0.00 - 0.01 K/cumm MARY JANE PHAM Comment:Testing performed by : [address] [address] Blood (Blood, Venous) 01/28/2022 4:51 PM CDT 01/28/2022 4:54 PM CDT Blaze Armenta NP LAB BLOOD ORDERABLES Final Resul t MARY JANE [address] [facility] [place] [address] documented in this encounter Visit Diagnoses Diagnosis Dizziness- Primary Dizziness and giddiness documented in this encounter Administered Medications Inactive Administered Medications - up to 3 most recent administrations Medication Order MAR Action Action Date Dose Rate Site meclizine (ANTIVERT) tablet 25 mg 25 mg, oral, Once, On Mon01/28/22 at 1647, For 1 dose Given 01/28/2022 4:48 PM CDT 25 mg ondansetron (ZOFRAN) injection 4 mg 4 mg, intravenous, Administer over 2 Minutes, Once, On Mon01/28/22 at 1739, For 1 dose Given 01/28/2022 5:46 PM CDT 4 mg sodium chloride 0.9% bolus 1,000 mL 1,000 mL, intravenous, Once, On Mon01/28/22 at 1822, For 1 dose New Bag 01/28/2022 6:48 PM CDT 1,000 mL documented in this encounter Active and Recently Administered Medications Times are shown in CDT. Scheduled Medication Order 01/26/2022 01/27/2022 01/28/2022 meclizine (ANTIVERT) tablet 25 mg (COMPLETED) 25 mg, oral, Once, On Mon01/28/22 at 1647, For 1 dose 1648 (Given - Provid er: Mary Flowers, NURIS) ondansetron (ZOFRAN) injection 4 mg (COMPLETED) 4 mg, intravenous, Administer over 2 Minutes, Once, On Mon01/28/22 at 1739, For 1 dose 1746 (Given - Provid er: Micaela King, NURIS) sodium chloride 0.9% bolus 1,000 mL (COMPLETED) 1,000 mL, intravenous, Once, On Mon01/28/22 at 1822, For 1 dose 1848 (New Bag - Prov ider: Gil Argueta, NURIS)2101 (Stopped - Provider: Gil Argueta, NURIS - Comment: Stopped d/t discharge. aware.) documented in this encounter Orders Lab Orders Without Results Count Last Ordered D ate First Ordered Date POCT TROPONIN DEVICE 1 01/28/2022 Nursing Count Last Ordered Date First Orde red Date MISCELLANEOUS NURSING CARE ORDER (SPECIFY) 1 01/28/2022 IV Count Last Ordered Date First Orde red Date SALINE LOCK IV 1 01/28/2022 documented in this encounter Care Teams Fx Artist Relationship Specialty Start Date End Date Justen Gale MD [address] [facility] [address] [place] [address] PCP - General 10/09/17 Liu Jerez MD Consulting Physician Gastroenterology 07/28/17 [place] [address] [facility] [address] [place] [address] Consulting Physician Pulmonary Disease 08/03/17 [place] [address] [place] [address] [address] [place] [address] Medical Oncologist/Titrator Medical Oncology 10/23/17 [place] [address] [facility] [address] [place] [address] Surgeon Orthopedic Surgery 10/23/17 [place] [address] [address] Consulting Physician Pain Management 10/23/17 [place] [address] [facility] [address] [place] [address] Referring Physician General Surgery 01/26/18 [place] [address] [facility] [address] [place] [address] Consulting Physician Neurology 01/26/18 documented as of this encounter
--- OUTSIDE RECORDS SUMMARY | 2024-04-26 04:21 | XMS_ITS | Encounter Summary ---
Author Organization [facility] Healthcare Address [address] [place] [address] Care Team Providers Care Rubber Flap Tuber Machine Operator Name Role Phone Liu Jerez MD Unavailable [phone] Albert Corbin MD Unavailable Justen Gale MD Primary Care Provider Khris Arthur MD Unavailable [phone] Ko Melendez MD Unavailable John Paul Moyer MD Unavailable Annel Rod MD Unavailable Anali MARSHALL MD, Carlos M. 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 Positive cultures, return for reevaluation documented in this encounter Plan of Treatment Not on file documented as of this encounter Visit Diagnoses Not on filedocumented in this encounter Care Teams Rubber Flap Tuber Machine Operator Relationship Specialty Start Date End Date Justen Gale MD 2 [facility] [address] [place] [address] PCP - General 10/09/17 Liu Jerez MD Consulting Physician Gastroenterology 07/28/17 [place] [address] [facility] [address] [place] [address] Consulting Physician Pulmonary Disease 08/03/17 [place] [address] [place] [address] [address] [place] [address] Medical Oncologist/Automotive Brake Technician Medical Oncology 10/23/17 [place] [address] [facility] [address] [place] [address] Surgeon Orthopedic Surgery 10/23/17 [place] [address] [address] Consulting Physician Pain Management 10/23/17 [place] [address] [address] Referring Physician General Surgery 01/26/18 [place] [address] [facility] [address] [place] [address] Consulting Physician Neurology 01/26/18 documented as of this encounter
--- OUTSIDE RECORDS SUMMARY | 2024-04-26 04:21 | XMS_ITS | Encounter Summary ---
Author Organization [facility] Healthcare Address [address] [place] [address] Care Team Providers Care Materials Coordinator Name Role Phone Liu Jerez MD Unavailable [phone] Albert Corbin MD Unavailable Justen Gale MD Primary Care Provider Khris Arthur MD Unavailable [phone] Ko Melendez MD Unavailable John Paul Moyer MD Unavailable [phone] Annel Rod MD Unavailable Anali MARSHALL MD, Carlos M. 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 Gender Identity Not on file Sexual Orientation Not on file documented as of this encounter Last Filed Vital Signs Vital Sign Reading Time Taken Comments Blood Pressure 118/73 01/10/2022 3:01 PM CDT Pulse 88 01/10/2022 3:01 PM CDT Temperature 36.8 ??C (98.2 ??F) 01/10/2022 1 2:52 PM CDT Respiratory Rate 18 01/10/2022 3:01 PM CDT Oxygen Saturation 94% 01/10/2022 3:01 PM CDT Inhaled Oxygen Concentration - - Weight 130.5 kg (287 lb 11.2 oz) 2021 12:52 PM CDT Height - - Body Mass Index 54.36 12/23/2021 6:08 AM CDT documented in this encounter Discharge Instructions * Discharge Instructions* Lila Villagran PA - 01/10/2022 3:01 PM CDT You can take Tylenol ibuprofen [id number] for relief of pain if needed, call and schedule follow-up appointment with your primary care provider or urologist if your symptoms persist not improvement. Return immediately if you develop new or worsening symptoms including worsening pain or persistent nausea and vomiting. Follow-up as recommended is mandatory. You have [...] symptoms, worsening of symptoms, or persistent symptoms * Attachments The following attachments cannot be sent through Care Everywhere. * Abdominal Pain (AfterCare(R) Instructions(ER/ED)) (Jordanian) documented in this encounter Medications at Time [...] needed (sorethroat) 200 mL 2 01/27/20 23 mupirocin (BACTROBAN) 2 % [...] 03/01/20 22 documented as of this encounter Discharge Disposition Disposition Code Departure Means Destination Discharge to home or self care documented in this encounter Progress Notes * Langhauser, [place], PSYCHIATRIC SECRETARY - 01/10/2022 1:58 PM CDT Patient discharged 12/26/21 from [facility] after being treated for UTI, was using WW at that time, no services arranged at discharge, is alert and oriented x4 at baseline HEMA Cummings 01/10/22 documented in this encounter ED Notes * Lila Villagran PA - 01/10/2022 2:59 PM CDT HPI Chief Complaint Patient presents with Urinary Problem HPI 2:59 PM Karly Marques is a 66 y.o. female presenting to the ED c/o suprapubic pain and discomfort, worsening with urination. Denies any pain or burning with urination. States she is significant history of urinary tract infections, previously had urosepsis earlier this year. Patient denies any fe vers or chills, states she did have an episode of vomiting earlier this morning but none since then. Denies any changes in bowels. Denies any chest pain or shortness of breath. Has history of CHF, diabetes, and PE. Patient states she saw her urologist last week and was started on Bactrim for urinary tract infection that feels like symptoms are getting worse. Patient History: Past Medical History: Diagnosis Date Adiposity obesity Breast CA (CMS/HCC) (HCC) Cancer (CMS/HCC) (HCC) breast CHF (congestive heart failure) (CMS/HCC) (HCC) Depression Depression Diabetes (HCC) Disorder of thyroid Thyroid disease DVT (deep venous thrombosis) (CMS/HCC) (HCC) HX OTHER MEDICAL restless leg syndrome HX OTHER MEDICAL RLS Hypertension Hypertension Osteoarthritis osteoarthritis PE (pulmonary thromboembolism) (CMS/HCC) ([facility]) Sleep apnea [...] injection lidocaine viscous (XYLOCAINE) 2 % solution mupirocin [...] Triage Vitals Temp Pulse Resp BP SpO2 01/10/22 1252 01/10/22 1252 01/10/22 1252 01/10/22 1252 01/10/22 1252 36.8 ??C (98.2 ??F) 90 18 155/75 94 % Temp src Heart Rate Source Patient Position BP Location FiO2 (%) 01/10/22 1252 01/10/22 1501 01/10/22 1501 01/10/22 1501 -- Oral Monitor Sitting Right arm Height Height Method Weight Weight Method -- -- 01/10/22 1252 01/10/22 1252 130.5 kg (287 lb 11.2 oz) Standing scale Patient Vitals for the past 24 hrs: BP Temp Temp src Pulse Resp SpO2 Weight 01/10/22 1501 118/73 -- -- 88 18 94 % -- 01/10/22 1252 155/75 36.8 ??C (98.2 ??F) Oral 90 18 94 % 130.5 kg (287 lb 11.2 oz) Physical Exam Vitals and nursing note [...] is no abdominal tenderness. Musculoskeletal: Cervical back: Neck supple. Skin: General: Skin is warm and dry. Neurological: Mental Status: She is alert and oriented to person, place, and time. Procedures MDM Labs Reviewed URINALYSIS AND REFLEX TO MICROSCOPIC AND CULTURE - Abnormal Result Value Color, ur Yellow Clarity, ur Clear Specific gravity, ur 1.025 pH, urine 5.5 Protein, ur ql Negative [...] tendency for uric acid stone formation. Source: [place].Last revised 05-04-2017 COMPREHENSIVE METABOLIC PANEL - Abnormal Sodium 136 Potassium, pl 4.7 Chloride 100 CO2 26 Anion gap 10 BUN 16 Creatinine 0.90 Glucose 236 (*) Calcium 9.7 Bilirubin, total 0.6 Protein, pl 8.6 (*) Albumin 4.3 Alk phos 94 ALT 16 AST 24 URINALYSIS, MICROSCOPIC ONLY - Abnormal WBC, ur 0-5 RBC, ur 0-2 Epithelial cells, squamous, ur 6-10 (*) Mucous, ur Present (*) Culture Reflex Comment Value: Reflex conditions for urine culture (WBC >10) not met. CBC WITH AUTO DIFFERENTIAL WBC 9.3 Hgb 13.0 Hct 39.9 Plt 317 MPV 9.6 RBC 4.54 MCV 87.9 MCH 28.6 MCHC 32.6 RDW CV 13.7 RDW SD 43.9 NRBC abs 0.00 DIFFERENTIAL AUTO Neutrophil abs 6.0 Imm gran abs 0.0 Lymphocyte abs 2.4 Monocyte abs 0.6 Eosinophil abs 0.2 Basophil abs 0.0 Neutrophil pct 64.5 Imm gran pct 0.1 Lymphocyte pct 25.9 Monocyte pct 6.8 Eosinophil pct 2.3 Basophil pct 0.4 EGFR eGFR 71 No orders to display BP 118/73 (BP Location: Right arm, Patient Position: Sitting) Pulse 88 Temp 36.8 ??C (98.2 ??F)(Oral) Resp 18 Wt 130.5 kg (287 lb 11.2 oz) SpO2 94% BMI 54.36 kg/m?? MDM Amount and/or Complexity of Data Reviewed Clinical lab tests: reviewed ED Course as of 01/10/22 1512 Time: 01/10 1509 Comment: All lab results were discussed with patient. Discussed no elevated white blood cells or indication of urinary tract infection on urinalysis. Discussed this is likely not causing her symptoms, she recently finished Bactrim for previous antibiotic. Discussed that we could do a CT scan for further evaluation of pain if she would like, she had [address] scans in the past 3 months. Patient is agreeable with not doing a CT scan today. States she will follow-up with her urologist if symptoms persist not improvement. Strict return precautions were discussed including worsening symptoms, fevers, chills, persistent nausea vomiting. Patient states she already has a prescription for Zofran and does not need this at this time. Patient expressed understanding and is agreeable to plan and discharge. All questions answered. By: Lila Villagran PA This examination was transcribed using the [employer] One voice recognition system without human personnel security assistant. In an effort to expedite patient care, this report has not been adjusted for typographical, grammatical, and syntax by a trained medical billing associate. Close outpatient follow-up with a low threshold to return has been mandated , concerning symptoms have been emphasized in detail, and this patient expresses understanding Clinical Impression: Wellness examination Suprapubic pain Lila Villagran PA 01/10/22 1512 Cosigned by Melvin Sy MD at 01/12/2022 2:57 PM CDT * Rula Petty RN - 01/10/2022 12:49 PM CDT Pt states I have been battling a UTI for weeks. Im allergic to a lot of antibiotics. I got dx herefrom the 4th for IV antibiotics. I went to the urologist last week and got put on bactrim but my symptoms have gotten worse. Pt A&Ox4. Pt report lower abdominal pain 5/10, nausea, vomiting and weakness. Denies fever. documented in this encounter Plan of Treatment Not on file documented as of this encounter Procedures Procedure Name Priority Date/Time Associated Diagnosis Comments EGFR STAT 01/10/2022 1:17 PM CDT DIFFERENTIAL AUTO STAT 01/10/2022 1:1 7 PM CDT URINALYSIS AND REFLEX TO MICROSCOPIC AND CULTURE STAT 01/10/2022 1:17 PM CDT CBC WITH AUTO DIFFERENTIAL STAT 01/10/2022 1:17 PM CDT URINALYSIS, MICROSCOPIC ONLY STAT 01/10/2022 1:17 PM CDT COMPREHENSIVE METABOLIC PANEL STAT 01/10/2022 1:17 PM CDT documented in this encounter Results * eGFR (01/10/2022 1:17 PM CDT) eGFR 71 mL/min/1. 73 m2 MARY JANE PHAM Comment: [...] was last reviewed 2021. Testing performed by: [address] [address] Blood 01/10/2022 1:17 PM CDT 01/10/2022 1:31 PM CDT Melvin Sy MD LAB BLOOD ORDERABLES F inal Result Performing Organization Address [facility] de Phone Number MARY JANE [address] [facility] [place] [address] * (ABNORMAL) Urinalysis, microscopic only (01/10/2022 1:17 PM CDT) WBC, ur 0-5 0 - 5 /HPF MARY JANE Comment:Testing performed by : [address] [address] RBC, ur 0-2 0 - 2 /HPF MARY JANE Comment:Testing performed by : [address] [address] Epithelial cells, squamous, ur 6-10(A) 0 - 5 /HPF MARY JANE Comment: Suggestive of contamination. Consider recollection by clean catch. Testing performed by: [address] [address] Mucous, ur Present(A) MARY JANE Comment:Testing performed by : [address] [address] Culture Reflex Comment Reflex conditions for urine culture (WBC >10) not met. MARY JANE Comment:Testing performed by : [address] [address] Urine 01/10/2022 1:17 PM CDT 01/10/2022 1:31 PM CDT Melvin Sy MD LAB URINE ORDERABLES F inal Result Performing Organization Address [facility] Co de Phone Number [facility] [address] [facility] [place] [address] * Differential, auto (01/10/2022 1:17 PM CDT) Neutrophil abs 6.0 1.7 - 6.5 K/cumm MARY JANE Comment:Testing performed by : [address] [address] Imm gran abs 0.0 0.0 - 0.1 K/cumm MARY JANE Comment:Testing performed by : [address] [address] Lymphocyte abs 2.4 0.8 - 3.3 K/cumm [facility] Comment:Testing performed by : [address] [address] Monocyte abs 0.6 0.2 - 0.8 K/cumm [facility] Comment:Testing performed by : [address] [address] Eosinophil abs 0.2 0.0 - 0.5 K/cumm [facility] Comment:Testing performed by : [address] [address] Basophil abs 0.0 0.0 - 0.1 K/cumm [facility] Comment:Testing performed by : [address] [address] Neutrophil pct 64.5 % [facility] Comment: Interpretive Data Percent cell count reference ranges are not reported, since discordance with absolute values may lead to misinterpretation of CBC data. Current Interpretive Data was last revised on 2017. Testing performed by: [address] [address] Imm gran pct 0.1 % [facility] Comment: Interpretive Data Percent cell count reference ranges are not reported, since discordance with absolute values may lead to misinterpretation of CBC data. Current Interpretive Data was last revised on 2017. Testing performed by: [address] [address] Lymphocyte pct 25.9 % [facility] Comment: Interpretive Data Percent cell count reference ranges are not reported, since discordance with absolute values may lead to misinterpretation of CBC data. Current Interpretive Data was last revised on 2017. Testing performed by: [address] [address] Monocyte pct 6.8 % MARY JANE PHAM Comment: Interpretive Data Percent cell count reference ranges are not reported, since discordance with absolute values may lead to misinterpretation of CBC data. Current Interpretive Data was last revised on 2017. Testing performed by: [address] [address] Eosinophil pct 2.3 % MARY JANE Comment: Interpretive Data Percent cell count reference ranges are not reported, since discordance with absolute values may lead to misinterpretation of CBC data. Current Interpretive Data was last revised on 2017. Testing performed by: [address] [address] Basophil pct 0.4 % MARY JANE Comment: Interpretive Data Percent cell count reference ranges are not reported, since discordance with absolute values may lead to misinterpretation of CBC data. Current Interpretive Data was last revised on 2017. Testing performed by: [address] [address] Blood 01/10/2022 1:17 PM CDT 01/10/2022 1:31 PM CDT us Melvin Sy MD LAB BLOOD ORDERABLES F inal Result [facility] [address] [facility] Department [place] [address] * (ABNORMAL) Comprehensive metabolic panel (01/10/2022 1:17 PM CDT) Sodium 136 135 - 145 mmol/L MARY JANE PHAM Comment:Testing performed by : [address] [address] Potassium, pl 4.7 3.3 - 4.9 mmol/L MARY JANE PHAM Comment:Testing performed by : [address] [address] Chloride 100 97 - 110 mmol/L MARY JANE PHAM Comment:Testing performed by : [address] [address] CO2 26 22 - 32 mmol/L MARY JANE PHAM Comment:Testing performed by : [address] [address] Anion gap 10 2 - 15 mmol/L MARY JANE Comment:Testing performed by : [address] [address] BUN 16 8 - 25 mg/dL MARY JANE Comment:Testing performed by : [address] [address] Creatinine 0.90 0.60 - 1.10 mg/dL MARY JANE Comment:Testing performed by : [address] [address] Glucose 236(H) 70 - 199 mg/dL [facility] Comment: Interpretive Data Fasting glucose >/= 126 [...] was last revised 2017. Testing performed by: [address] [address] Calcium 9.7 8.5 - 10.3 mg/dL MARY JANE Comment:Testing performed by : [address] [address] Bilirubin, total 0.6 0.1 - 1.2 mg/dL MARY JANE Comment:Testing performed by : [address] [address] Protein, pl 8.6(H) 6.5 - 8.5 g/dL MARY JANE Comment:Testing performed by : [address] [address] Albumin 4.3 3.5 - 5.0 g/dL MARY JANE Comment:Testing performed by : [address] [address] Alk phos 94 40 - 130 Units/L MARY JANE Comment:Testing performed by : [address] [address] ALT 16 7 - 45 Units/L MARY JANE PHAM Comment:Testing performed by : [address] [address] AST 24 10 - 45 Units/L MARY JANE PHAM Comment: HEMOLYZED: Hemolysis interferes with the above test. Testing performed by: [address] [address] Blood 01/10/2022 1:17 PM CDT 01/10/2022 1:31 PM CDT us Melvin Sy MD LAB BLOOD ORDERABLES F inal Result MARY JANE [address] [facility] Department [place] [address] * CBC with auto differential (01/10/2022 1:17 PM CDT) WBC 9.3 3.8 - 9.9 K/cumm MARY AJNE PHAM Comment:Testing performed by : [address] [address] Hgb 13.0 11.9 - 15.5 g/dL MARY JANE PHAM Comment:Testing performed by : [address] [address] Hct 39.9 35.6 - 45.5 % MARY JANE PHAM Comment:Testing performed by : [address] [address] Plt 317 150 - 400 K/cumm MARY JANE Comment:Testing performed by : [address] [address] MPV 9.6 9.1 - 12.3 fL MARY JANE PHAM Comment:Testing performed by : [address] [address] RBC 4.54 3.90 - 5.20 M/cumm MARY JANE PHAM Comment:Testing performed by : [address] [address] MCV 87.9 81.3 - 96.4 fL MARY JANE PHAM Comment:Testing performed by : [address] [address] MCH 28.6 27.1 - 33.3 pg MARY JANE PHAM Comment:Testing performed by : [address] [address] MCHC 32.6 32.3 - 35.7 g/dL MARY JANE PHAM Comment:Testing performed by : [address] [address] RDW CV 13.7 11.1 - 14.9 % MARY JANE PHAM Comment:Testing performed by : [address] [address] RDW SD 43.9 35.7 - 48.1 fL MARY JANE PHAM Comment:Testing performed by : [address] [address] NRBC abs 0.00 0.00 - 0.01 K/cumm MARY JANE PHAM Comment:Testing performed by : [address] [address] Blood 01/10/2022 1:17 PM CDT 01/10/2022 1:31 PM CDT us Melvin Sy MD LAB BLOOD ORDERABLES F inal Result [facility]ARY JANE [facility] Department of Laboratories [place], [place] [id number] * (ABNORMAL) Urinalysis reflex to microscopic and culture Urine (01/10/2022 1:17 PM CDT) Color, ur Yellow Yellow MARY JANE PHAM Comment:Testing performed by : [address] [address] Clarity, ur Clear Clear MARY JANE PHAM Comment:Testing performed by : [address] [address] Specific gravity, ur 1.025 1.003 - 1.030 MARY JANE PHAM Comment:Testing performed by : [address] [address] pH, urine 5.5 MARY JANE PHAM Comment:Testing performed by : [address] [address] Protein, ur ql Negative Negative MARY JANE Comment:Testing performed by : [facility], [address] [place] [address], [place]., [address] Glucose, ur ql Negative Negative MARY JANE Comment:Testing performed by : [facility], [address] [place] [address], [place]., [address] Ketones, ur Negative Negative MARY JANE Comment:Testing performed by : [address], [place]., [address] Bilirubin, ur Negative Negative MARY JANE Comment:Testing performed by : [facility], [address] [place] [address], [place]., [address] Blood, ur Trace(A) Negative MARY JANE Comment:Testing performed by : [address], [place]., [address] Urobilinogen, ur 0.2 <2.0 mg/dL MARY JANE Comment:Testing performed by : [address], [place]., [address] Nitrite, ur Negative Negative MARY JANE Comment:Testing performed by : [address], [place]., [address] Leukocyte esterase, ur Negative Negative MARY JANE Comment:Testing performed by : [address], [place]., [address] UA reflex comment Reflex to microscopic UA will be performed. MARY JANE Comment:Testing performed by : [address], [place]., [address] Urine 01/10/2022 1:17 PM CDT 01/10/2022 1:31 PM CDT Narrative MARY JANE - 01/10/2022 1:45 PM CDT ?? Urine pH is affected by diet, medications, systemic acid-base disturbances, and renal tubular function. ??pH may affect urinary stone formation. ??For example, urine pH below 6.0 may help reduce the tendency for calcium phosphate stones and pH greater than 6.0 may reduce the tendency for uric acid stone formation. Source: [place]. Last revised 05-04-2017 us Melvin Sy MD LAB MICROBIOLOGY - GEN ERAL ORDERABLES Final Result MARY JANE [address] [facility] [place] [address] documented in this encounter Visit Diagnoses Diagnosis Wellness examination- Primary Suprapubic pain Abdominal pain, other specified site documented in this encounter Care Teams Materials Coordinator Relationship Specialty Start Date End Date Justen Gale MD 2 [facility] [address] [place] [address] PCP - General 10/09/17 Liu Jerez MD Consulting Physician Gastroenterology 07/28/[address] [place] [address] [facility] [address] [place] [address] Consulting Physician Pulmonary Disease 08/03/17 Krhis Arthur MD [address] [facility] [address] [place] [address] Medical Oncologist/Conductor Yard Medical Oncology 10/23/17 [place] [address] [facility] [address] [place] [address] Surgeon Orthopedic Surgery 10/23/17 [place] [address] [facility] [address] [place] [address] Consulting Physician Pain Management 10/23/17 [place] [address] [facility] [address] [place] [address] Referring Physician General Surgery 01/26/18 [place] [address] [facility] [address] [place] [address] Consulting Physician Neurology 01/26/18 documented as of this encounter
--- OUTSIDE RECORDS SUMMARY | 2024-04-26 04:21 | XMS_ITS | Encounter Summary ---
Author Organization [facility] Healthcare Address [address] [place] [address] Care Team Providers Care Field Coil Winder Name Role Phone Liu Jerez MD Unavailable [phone] Albert Corbin MD Unavailable Justen Gale MD Primary Care Provider Khris Arthur MD Unavailable [phone] Ko Melendez MD Unavailable [phone] John Paul Moyer MD Unavailable [phone] Annel Rod MD Unavailable Anali MARSHALL MD, Carlos M. 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 Gender Identity Not on file Sexual Orientation Not on file documented as of this encounter Last Filed Vital Signs Vital Sign Reading Time Taken Comments Blood Pressure 122/82 09/19/2021 5:14 PM CDT Pulse 83 09/19/2021 5:14 PM CDT Temperature 36.8 ??C (98.2 ??F) 09/19/2021 5:14 PM CD T Respiratory Rate 20 09/19/2021 5:14 PM CDT Oxygen Saturation 98% 09/19/2021 5:14 PM CDT Inhaled Oxygen Concentration - - Weight 128.2 kg (282 lb 10.1 oz) 09/19/2021 5:14 PM CDT Height 154.9 cm (5' 1 ) 09/19/2021 5:14 PM CDT Body Mass Index 53.4 09/19/2021 5:14 PM CDT documented in this encounter Discharge Instructions * Discharge Instructions* Glenna Rudd PA - 09/19/2021 5:59 PM CDT Continue taking your pain meds at home as prescribed Follow up with your surgeon on Monday Your rash today appears irritated from the wound coverage, nothing infectious at all. * Attachments The following attachments cannot be sent through Care Everywhere. * Pain Management After Surgery (Discharge Care) (Ivorian) documented in this encounter Medications at Time of Discharge albuterol HFA (PROVENTIL HFA,VENTOLIN HFA,PROAIR HFA) 90 mcg/actuation inhaler Inhale 2 puffs every 6 (six) hours as needed for wheezing or shortness of breath 04/19/2021 BD Ultra-Fine Short Pen Needle 31 gauge x 5/16 needle USE 6 TIMES DAILY DIRECTED 06/24/2021 blood glucose diagnostic (FriendFeed Ultra Test) strip 4 (four) times a day 02/01/2021 naloxone (NARCAN) 4 mg/actuation spray,non-aerosol 05/13/2021 rOPINIRole (REQUIP) 5 mg tablet Take 1 tablet (5 mg total) by mouth nightly Taken at 2100 amitriptyline (ELAVIL) 25 mg tablet Take 25 mg by mouth nightly 05/21/2018 4 exemestane (AROMASIN) 25 mg tabletIndications: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 Takes in the morning 01/26/2018 4 insulin lispro (HumaLOG) 100 unit/mL injection Inject 12 Units under the skin 3 (three) times a day before meals. 01/26/2018 4 mupirocin (BACTROBAN) 2 % ointment mupirocin 2 % topical ointment 3 oxybutynin (DITROPAN) 5 mg tablet take 1 tablet by oral route every day 0 0 12/12/[address] (PROTONIX) 40 mg EC tabletIndications:Tr eatment of Non-Bleeding Gastric Disorder Take 1 tablet (40 mg total) by mouth 2 (two) times a day 60 tablet 09/14/2021 3 rivaroxaban (Xarelto) 20 mg tabletIndications:Ot her pulmonary [...] mg total) by mouth daily 30 tablet 1 08/16/2021 2 documented as of this encounter Discharge Disposition Disposition Code Departure Means Destination Discharge to home or self care documented in this encounter ED Notes * Glenna Rudd PA - 09/19/2021 5:28 PM CDT HPI Chief Complaint Patient presents with ??? Back Pain ??? Rash HPI 7:02 PM Karly Marques is a 66 y.o. female presenting to the ED c/o rash to her back onset today. Pt reports she had a TENS unit placed in her back 3 days ago. Now she has a red rash present at the insertion site and excrutiating pain to the area. Pt states I've had a double mastectomy and this is more painful than that. The surgeon's exchange line recommended she go to the ER to be evaluated. She has norco at home, but hasn't taken it in over 5 hours (she is to take them q 4 hours). Pt denies fever, chills, GI symptoms, CP, SOB. No other complaints at this time. Patient History: Past Medical History: Diagnosis Date [...] Tobacco Use ??? Smoking status: Former Smoker ??? Smokeless tobacco: Never Used ??? Tobacco comment: remote tobacco use Substance Use Topics ??? Alcohol use: No No current facility-administered medications for this encounter. Current Outpatient Medications: ??? albuterol HFA (PROVENTIL HFA,VENTOLIN HFA,PROAIR HFA) 90 mcg/actuation inhaler ??? amitriptyline (ELAVIL) 25 mg tablet ??? BD Ultra-Fine Short Pen Needle 31 gauge x 5/16 needle ??? blood glucose diagnostic (dotClouduch Ultra Test) strip ??? exemestane (AROMASIN) 25 mg tablet ??? HYDROcodone-acetaminophen (NORCO) 7.5-325 mg per tablet ??? insulin glargine (LANTUS) 100 unit/mL injection ??? insulin lispro (HumaLOG) 100 unit/mL injection ??? mupirocin (BACTROBAN) 2 % ointment ??? naloxone (NARCAN) 4 mg/actuation spray,non-aerosol ??? oxybutynin (DITROPAN) 5 mg tablet ??? pantoprazole DR (PROTONIX) 40 mg EC tablet ??? rivaroxaban (Xarelto) 20 mg tablet ??? rOPINIRole (REQUIP) 5 mg tablet Review of Systems Review of Systems All systems reviewed and are negative or non contributory for this patients presentation today other than as stated in the HPI . Physical Exam ED Triage Vitals [09/19/21 1714] Temp Pulse Resp BP SpO2 36.8 ??C (98.2 ??F) 83 20 122/82 98 % Temp src Heart Rate Source Patient Position BP Location FiO2 (%) Oral -- -- -- -- Height Height Method Weight Weight Method 1.549 m (5' 1 ) Stated 128.2 kg (282 lb 10.1 oz) Standing scale Physical Exam Nursing notes and vital signs reviewed GENERAL: Non-toxic appearing, NAD, appears stated age HEENT: NCAT, EOMI, MMM LUNGS: Breath sounds are clear to auscultation bilaterally, no adventitious breath sounds, no distress CV: Regular rate and rhythm, no murmurs or gallops heard GI: obese. Soft, nondistended, nontender, bowel sounds are present. No guarding or rebound. No peritoneal signs. MSK: MAEW, no obvious deformities.5/5 BLE strength and sensation. NEURO: Speech is clear. Alert and oriented x4 PSYCH: Pleasant and cooperative, sleeping upon my arrival to the room. SKIN: Healing surgical scar to mid back measuring about 8 cm in length, no drainage, appears intact. No surrounding signs of infection. There are surrounding skin changes c/w skin irritation from thewound dressing/tape. Again, no increased warmth or signs of cellulitis. There is also bruising around the area that appears old in nature, most likely secondary to the procedure. Second surgical scarto R buttock measuring 3.5 cm in length appears well healing, w/o drainage, rash, or signs of infection. Procedures [facility] Labs Reviewed CBC WITH AUTO DIFFERENTIAL - Abnormal Result Value WBC 11.5 (*) Hgb 12.2 Hct 39.2 Plt 235 MPV 9.6 RBC 4.19 MCV 93.6 MCH 29.1 MCHC 31.1 (*) RDW CV 13.6 RDW SD 46.4 NRBC abs 0.00 COMPREHENSIVE METABOLIC PANEL - Abnormal Sodium 133 (*) Potassium, pl 4.7 Chloride 98 CO2 28 Anion gap 7 BUN 15 Creatinine 0.60 Glucose 281 (*) Calcium 9.4 Bilirubin, total 0.4 Protein, pl 7.8 Albumin 3.5 Alk phos 82 ALT 26 AST 18 DIFFERENTIAL AUTO - Abnormal Neutrophil abs 8.0 (*) Imm gran abs 0.1 Lymphocyte abs 2.4 Monocyte abs 0.8 Eosinophil abs 0.3 Basophil abs 0.0 Neutrophil pct 69.5 Imm gran pct 0.5 Lymphocyte pct 21.0 Monocyte pct 6.5 Eosinophil pct 2.2 Basophil pct 0.3 EGFR eGFR 100 No orders to display BP 122/82 Pulse 83 Temp 36.8 ??C (98.2 ??F) (Oral) Resp 20 Ht 154.9 cm (5' 1 ) Wt 128.2 kg (282 lb 10.1 oz) SpO2 98% BMI 53.40 kg/m?? MDM 1757 D/w pt lab results show NAD and plan to d/c home with instructions to continue her current pain regimen at home after examining her rash and determining it appears noninfectious today. There is no drainage, signs of cellulitis around the surgical wound. Pt's VSS, lab work is unremarkable. Pt's pain improved and she was able to sleep in the ER with oral norco. Strict return to ER precautions given. They will f/u with her surgeon on Monday. Pt verbalizes understanding and agrees to plan. All questions addressed. This examination was transcribed using the Live[employer] computerized voice recognition system without human tray server. In an effort to expedite patient care, this report has not been adjusted for typographical, grammatical, and syntax by a trained director medical surgical. Clinical Impression: Post-op pain Glenna Rudd PA 09/19/211902 Cosigned by Virgie Angulo MD at 09/20/2021 1:48 PM CDT * Jimmie Staples RN - 09/19/2021 5:13 PM CDT Patient had a TENS unit placed [facility] and now has redness and a rash, she was told by the surgeon's exchange to go to the ER. documented in this encounter Plan of Treatment Not on file documented as of this encounter Procedures Procedure Name Priority Date/Time Associated Diagnosis Comments EGFR STAT 09/19/2021 5:20 PM CDT DIFFERENTIAL AUTO STAT 09/19/2021 5:2 0 PM CDT CBC WITH AUTO DIFFERENTIAL STAT 09/19/2021 5:20 PM CDT COMPREHENSIVE METABOLIC PANEL STAT 09/19/2021 5:20 PM CDT documented in this encounter Results * eGFR (09/19/2021 5:20 PM CDT) eGFR 100 mL/min/1. 73 m2 MARY JANE [facility] Comment: [...] was last reviewed 2021. Testing performed by: [address] [address] Blood 09/19/2021 5:20 PM CDT 09/19/2021 5:25 PM CDT us Glenna MCKEON LAB BLOOD ORDERABLES Final Result Performing Organization Address City/State/[facility] Co de Phone Number MARY JANE [address] [facility] [place] [address] * (ABNORMAL) Differential, auto (09/19/2021 5:20 PM CDT) Neutrophil abs 8.0(H) 1.7 - 6.5 K/cumm MARY JANE [facility] Comment:Testing performed by : [address] [address] Imm gran abs 0.1 0.0 - 0.1 K/cumm MARY JANE [facility] Comment:Testing performed by : [address] [address] Lymphocyte abs 2.4 0.8 - 3.3 K/cumm MARY JANE [facility] Comment:Testing performed by : [address] [address] Monocyte abs 0.8 0.2 - 0.8 K/cumm MARY JANE Comment:Testing performed by : [address], [place]., [address] Eosinophil abs 0.3 0.0 - 0.5 K/cumm [facility] Comment:Testing performed by : [address] [address] Basophil abs 0.0 0.0 - 0.1 K/cumm MARY JANE Comment:Testing performed by : [address] [address] Neutrophil pct 69.5 % [facility] Comment: Interpretive Data Percent cell count reference ranges are not reported, since discordance with absolute values may lead to misinterpretation of CBC data. Current Interpretive Data was last revised on 2017. Testing performed by: [address] [address] Imm gran pct 0.5 % [facility] Comment: Interpretive Data Percent cell count reference ranges are not reported, since discordance with absolute values may lead to misinterpretation of CBC data. Current Interpretive Data was last revised on 2017. Testing performed by: [address] [address] Lymphocyte pct 21.0 % [facility] Comment: Interpretive Data Percent cell count reference ranges are not reported, since discordance with absolute values may lead to misinterpretation of CBC data. Current Interpretive Data was last revised on 2017. Testing performed by: [address] [address] Monocyte pct 6.5 % [facility] Comment: Interpretive Data Percent cell count reference ranges are not reported, since discordance with absolute values may lead to misinterpretation of CBC data. Current Interpretive Data was last revised on 2017. Testing performed by: [address] [address] Eosinophil pct 2.2 % [facility] Comment: Interpretive Data Percent cell count reference ranges are not reported, since discordance with absolute values may lead to misinterpretation of CBC data. Current Interpretive Data was last revised on 2017. Testing performed by: [address] [address] Basophil pct 0.3 % MARY JANE Comment: Interpretive Data Percent cell count reference ranges are not reported, since discordance with absolute values may lead to misinterpretation of CBC data. Current Interpretive Data was last revised on 2017. Testing performed by: [address] [address] Blood 09/19/2021 5:20 PM CDT 09/19/2021 5:25 PM CDT us Glenna MCKEON LAB BLOOD ORDERABLES Final Result MARY JANE [facility] [place] [address] * (ABNORMAL) Comprehensive metabolic panel (09/19/2021 5:20 PM CDT) Sodium 133(L) 135 - 145 mmol/L MARY JANE [facility] Comment:Testing performed by : [address] [address] Potassium, pl 4.7 3.3 - 4.9 mmol/L MARY JANE Comment:Testing performed by : [address] [address] Chloride 98 97 - 110 mmol/L MARY JANE Comment:Testing performed by : [address] [address] CO2 28 22 - 32 mmol/L MARY JANE Comment:Testing performed by : [address] [address] Anion gap 7 2 - 15 mmol/L MARY JANE Comment:Testing performed by : [address] [address] BUN 15 8 - 25 mg/dL MARY JANE Comment:Testing performed by : [address] [address] Creatinine 0.60 0.60 - 1.10 mg/dL MARY JANE Comment:Testing performed by : [address] [place]., [address] Glucose 281(H) 70 - 199 mg/dL [facility] Comment: Interpretive Data Fasting glucose >/= [...] was last revised 2017. Testing performed by: [address] [address] Calcium 9.4 8.5 - 10.3 mg/dL [facility] Comment:Testing performed by : [address] [address] Bilirubin, total 0.4 0.1 - 1.2 mg/dL [facility] Comment:Testing performed by : [address] [address] Protein, pl 7.8 6.5 - 8.5 g/dL [facility] Comment:Testing performed by : [address] [address] Albumin 3.5 3.5 - 5.0 g/dL [facility] Comment:Testing performed by : [address] [address] Alk phos 82 40 - 130 Units/L [facility] Comment:Testing performed by : [address] [address] ALT 26 7 - 45 Units/L [facility] Comment:Testing performed by : [address] [address] AST 18 10 - 45 Units/L [facility] Comment:Testing performed by : [address] [address] Blood 09/19/2021 5:20 PM CDT 09/19/2021 5:25 PM CDT us Glenna MCKEON LAB BLOOD ORDERABLES Final Result MARY JANE [address] [facility] Department of Laboratories [place], [place] [id number] * (ABNORMAL) CBC with auto differential (09/19/2021 5:20 PM CDT) WBC 11.5(H) 3.8 - 9.9 K/cumm MARY JANE [facility] Comment:Testing performed by : [address] [address] Hgb 12.2 11.9 - 15.5 g/dL MARY JANE Comment:Testing performed by : [address], [address] Hct 39.2 35.6 - 45.5 % MARY JANE Comment:Testing performed by : [address] [address] Plt 235 150 - 400 K/cumm MARY JANE Comment:Testing performed by : [address], [address] MPV 9.6 9.1 - 12.3 fL MARY JANE Comment:Testing performed by : [address] [address] RBC 4.19 3.90 - 5.20 M/cumm [facility]ARY [facility]ANE [facility] Comment:Testing performed by : [address] [address] MCV 93.6 81.3 - 96.4 fL MARY JANE Comment:Testing performed by : [address] [address] MCH 29.1 27.1 - 33.3 pg MARY JANE Comment:Testing performed by : [address] [address] MCHC 31.1(L) 32.3 - 35.7 g/dL MARY JANE Comment:Testing performed by : [address], [address] RDW CV 13.6 11.1 - 14.9 % MARY JANE Comment:Testing performed by : [address] [address] RDW SD 46.4 35.7 - 48.1 fL MARY JANE [facility] Comment:Testing performed by : [facility], [address] [place] [address]., [address] NRBC abs 0.00 0.00 - 0.01 K/cumm MARY JANE [facility] Comment:Testing performed by : [facility], [address] [place] [address]., [address] Blood 09/19/2021 5:20 PM CDT 09/19/2021 5:25 PM CDT us Glenna MCKEON LAB BLOOD ORDERABLES Final Result MARY JANE PH[facility] [address] [facility] [place] [address] documented in this encounter Visit Diagnoses Diagnosis Post-op pain- Primary Other acute postoperative pain documented in this encounter Administered Medications Inactive Administered Medications - up to 3 most recent administrations Medication Order MAR Action Action Date Dose Rate Site HYDROcodone-acetaminophen (NORCO) 10-325 mg per tablet 1 tablet 1 tablet, oral, Once, On 09/19/21 at 1715, For 1 dose, Indications: PainIndications:Pain Given 09/19/2021 5:30 PM CDT 1 tablet documented in this encounter Active and Recently Administered Medications Times are shown in CDT. Scheduled Medication Order 09/17/2021 09/18/2021 09/19/2021 HYDROcodone-acetaminophen (NORCO) 10-325 mg per tablet 1 tablet (COMPLETED) 1 tablet, oral, Once, On 09/19/21 at 1715, For 1 dose, Indications: Pain 1730 (Given - Provid er: Lalita Ortiz) documented in this encounter Orders Medications Ordered That Tyler ht Not Have Been Administered Count Last Ordered Date First Ordered Date HYDROcodone-acetaminophen (N ORCO) 10-325 mg per tablet 1 tablet 1 09/19/2021 IV Count Last Ordered Date First Orde red Date SALINE LOCK IV 1 09/19/2021 documented in this encounter Care Teams Field Coil Winder Relationship Specialty Start Date End Date Justen Gale MD [address] [id number] PCP - General 10/09/17 Liu Jerez MD Consulting Physician Gastroenterology 07/28/17 [place] [address] [facility] [address] [place] [address] Consulting Physician Pulmonary Disease 08/03/17 Khris Arthur MD [address] [facility] [address] [place] [address] Medical Oncologist/Software Developer Mid Level Medical Oncology 10/23/17 [place] [address] [facility] [address] [place] [address] Surgeon Orthopedic Surgery 10/23/17 [place] [address] [facility] [address] [place] [address] Consulting Physician Pain Management 10/23/17 [place] [address] [facility] [address] [place] [address] Referring Physician General Surgery 01/26/18 [place] [address] [facility] [address] [place] [address] Consulting Physician Neurology 01/26/18 documented as of this encounter
--- OUTSIDE RECORDS SUMMARY | 2024-04-26 04:21 | XMS_ITS | Encounter Summary ---
Author Organization [facility] Healthcare Address [address] [place] [address] Care Team Providers Care Forming 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 Name Role Phone Liu Jerez MD Unavailable Albert Corbin MD Unavailable Justen Gale MD Primary Care Provider Khris Arthur MD Unavailable [phone] Ko Melendez MD Unavailable John Paul Moyer MD Unavailable Annel Rod MD Unavailable Anali MARSHALL MD, Carlos M. 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 Gender Identity Not on file Sexual Orientation Not on file documented as of this encounter Last Filed Vital Signs Vital Sign Reading Time Taken Comments Blood Pressure 142/89 10/15/2021 7:45 PM CDT Pulse 91 10/15/2021 7:45 PM CDT Temperature 36.8 ??C (98.2 ??F) 10/15/2021 2:11 PM CD T Respiratory Rate 18 10/15/2021 7:45 PM CDT Oxygen Saturation 95% 10/15/2021 7:45 PM CDT Inhaled Oxygen Concentration - - Weight 131.3 kg (289 lb 7.4 oz) 10/15/2021 2:11 PM CDT Height 154.9 cm (5' 1 ) 10/15/2021 2:11 PM CDT Body Mass Index 54.69 10/15/2021 2:11 PM CDT documented in this encounter Discharge Instructions * Discharge Instructions* Rosa Cruz PA - 10/15/2021 7:31 PM CDT You received IV antibiotics in the ED for your urinary tract infection. Fosfomycin was sent to yourpharmacy. This is a one time antibiotic that you will take tomorrow. Please follow-up with your primary care provider on Monday. Return to the ED if you develop worsening symptoms or persistent fever>100.4F. * Attachments The following attachments cannot be sent through Care Everywhere. * Urinary Tract Infection in Women (Discharge Care) (Djiboutian) documented in this encounter Medications at Time of Discharge albuterol HFA (PROVENTIL HFA,VENTOLIN HFA,PROAIR HFA) 90 mcg/actuation inhaler Inhale 2 puffs every 6 (six) hours as needed for wheezing or shortness of breath 04/19/2021 BD Ultra-Fine Short Pen Needle 31 gauge x 5/16 needle USE 6 TIMES DAILY DIRECTED 06/24/2021 blood glucose diagnostic (Affiniouch Ultra Test) strip 4 (four) times a day 02/01/2021 naloxone (NARCAN) 4 mg/actuation spray,non-aerosol 05/13/2021 rOPINIRole (REQUIP) 5 mg tablet Take 1 tablet (5 mg total) by mouth nightly Taken at 2100 fosfomycin (MONUROL) 3 gram packetIndications:Ur inary Tract/Genitourinary Infection Take 3 g by mouth once for 1 dose 1 packet 10/15/2021 2 amitriptyline (ELAVIL) 25 mg tablet Take 25 [...] 08/16/2021 2 documented as of this encounter Ordered Prescriptions Prescription Sig Dispense Quantity Refills Last Filled Start Date End Date fosfomycin (MONUROL) 3 gram packetIndications:U rinary Tract/Genitourinary Infection Take 3 g by mouth once for 1 dose 1 packet 10/15/2021 10/15/2021 documented in this encounter Discharge Disposition Disposition Code Departure Means Destination Discharge to home or self care documented in this encounter ED Notes * Rosa Cruz PA - 10/15/2021 3:27 PM CDT HPI Chief Complaint Patient presents with ??? Nausea ??? Dizziness HPI 9:30 PM Karly Marques is a 66 y.o. female presenting to the ED c/o nausea, vomiting, generalized weakness x2 days. Pt reports that one week ago she began experiencing increased urinary frequency,voiding small volumes - she was evaluated by her PCP, diagnosed with UTI, and started on Bactrim atthat time. Patient states that the culture susceptibility report showed that he it was resistant toBactrim so she was started on Macrobid 2 days ago. After starting Macrobid patient broke out in a rash so yesterday her PCP instructed her to switch back to Bactrim which she did. Rash since resolved. Patient states the now for the past couple of days she has been experiencing nausea, vomiting supra pubic discomfort and malaise. She has had x3 episodes of vomiting today. Patient has continued to experience increased urinary frequency although improving and now has some pain in her right back today. She has a Hx of chronic back pain but is uncertain if pain is related to her chronic pain vs kidney infection. Reports history of pyelonephritis for which she was admitted earlier this year. Additi onally, patient says that her throat and tongue have felt swollen for the past couple of days, now improving but not resolved. Patient History: Past Medical History: Diagnosis Date [...] glucose diagnostic (OneTouch Ultra Test) strip ??? exemestane (AROMASIN) 25 mg tablet ??? fosfomycin (MONUROL) 3 gram packet ??? HYDROcodone-acetaminophen (NORCO) 7.5-325 mg per tablet [...] Constitutional: Negative for fever. Respiratory: Negative for cough. Gastrointestinal: Positive for abdominal pain (Suprapubic), nausea and vomiting. Genitourinary: Positive for frequency. Negative for dysuria. Musculoskeletal: Positive for back pain. All systems reviewed and are neg or non contributory for this patients presentation today other than as stated in the HPI . Physical Exam ED Triage Vitals Temp Pulse Resp BP SpO2 10/15/21 1411 10/15/21 1411 10/15/21 1411 10/15/21 1411 10/15/21 1411 36.8 ??C (98.2 ??F) 90 20 166/93 97 % Temp src Heart Rate Source Patient Position BP Location FiO2 (%) 10/15/21 1411 10/15/21 1608 10/15/21 1608 10/15/21 1608 -- Oral Monitor Lying Right arm Height Height Method Weight Weight Method 10/15/21 1411 10/15/21 1411 10/15/21 1411 10/15/21 1411 1.549 m (5' 1 ) Stated 131.3 kg (289 lb 7.4 oz) Standing scale Physical Exam Vitals and nursing note reviewed. Constitutional: Appearance: Normal appearance. She is obese. She is not toxic-appearing. HENT: Head: Normocephalic and atraumatic. Nose: Nose normal. Mouth/Throat: Pharynx: Uvula midline. Posterior oropharyngeal erythema present. No oropharyngeal exudate. Tonsils: No tonsillar exudate or tonsillar abscesses. Comments: Tongue with no obvious swelling, uvula midline. No facial swelling No trismus Normal speech. No stridor or drooling. Eyes: General: No scleral icterus. Conjunctiva/sclera: Conjunctivae normal. Cardiovascular: Rate and Rhythm: [...] Clarity, ur Cloudy (*) Specific gravity, ur 1.019 pH, urine 5.0 Protein, ur ql Negative Glucose, ur ql Negative Ketones, ur Negative Bilirubin, ur Negative Blood, ur 1+ (*) Urobilinogen, ur <2.0 Nitrite, ur Negative Leukocyte esterase, ur 3+ (*) UA reflex [...] tendency for uric acid stone formation. Source: [facility] [employer].Last revised 05-04-2017 CBC WITH AUTO DIFFERENTIAL - Abnormal WBC 10.5 (*) Hgb 13.0 Hct 41.0 Plt 311 MPV 9.4 RBC 4.43 MCV 92.6 MCH 29.3 MCHC 31.7 (*) RDW CV 13.7 RDW SD 47.2 NRBC abs 0.00 COMPREHENSIVE METABOLIC PANEL - Abnormal Sodium 134 (*) Potassium, pl 4.6 Chloride 99 CO2 25 Anion gap 10 BUN 15 Creatinine 1.00 Glucose 172 Calcium 9.9 Bilirubin, total 0.3 Protein, pl 8.4 Albumin 3.9 Alk phos 87 ALT 21 AST 18 URINALYSIS, MICROSCOPIC ONLY - Abnormal WBC, ur >50 (*) RBC, ur 11-20 (*) Epithelial cells, squamous, ur 1-5 Bacteria, ur 1+ (*) Mucous, ur Present (*) Hyaline casts, ur 1-5 Culture Reflex Comment Reflex to urine culture will be performed. STREPTOCOCCUS GROUP A PCR - Abnormal Strep A DNA Detected (*) INFLUENZA A/B, RSV, AND COVID-19 PCR COVID-19 RNA Negative Influenza A RNA Negative Influenza B RNA Negative RSV RNA Negative Narrative: Is the Patient experiencing symptoms consistent with COVID?->Yes Date of Symptom Onset->10/13/21 Reason for testing?->Symptomatic URINE CULTURE SEPSIS LACTATE WITH REFLEX Sepsis Lactate 1.9 LIPASE Lipase 20 DIFFERENTIAL AUTO Neutrophil abs 6.5 Imm gran abs 0.0 Lymphocyte abs 2.7 Monocyte abs 0.8 Eosinophil abs 0.4 Basophil abs 0.1 Neutrophil pct 62.2 Imm gran pct 0.4 Lymphocyte pct 25.6 Monocyte pct 7.4 Eosinophil pct 3.9 Basophil pct 0.[address] Abdomen Pelvis W Contrast Final Result BP 142/89 Pulse 91 Temp 36.8 ??C (98.2 ??F) (Oral) Resp 18 Ht 154.9 cm (5' 1 ) Wt 131.3 kg (289 lb 7.4 oz) SpO2 95% BMI 54.69 kg/m?? MDM ?? WBC mildly elevated 10.5, CBC otherwise unremarkable ?? Lactate normal ?? CMP mild hyponatremia with Na 134, otherwise unremarkable ?? Lipase normal ?? UA +RBC, +WBC. No nitrites. ?? CT abd/pelvis - negative for acute intra-abdominal process ?? Reviewed patient's most recent urine culture susceptibility with the ED pharmacist (Reanna) - resistant to Bactrim which patient has been taking as an outpatient. 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 Reanna spoke with [facility] - recommends a dose of IV ertapenem versus gentamicin in the ED -observed x1 hour after to evaluate for possible allergic reaction. Discharge home with 1 time dose of fosfomycin tomorrow and follow-up for repeat UA in 3-4 days. Discussed this with patient and she is comfortable with plan and discharge home. ED Course as of 10/15/212129 Time: 10/15 1719 Value: Strep A DNA(!): Detected Comment: (Reviewed) By: Rosa Cruz PA This examination was transcribed using the [employer] voice recognition system without human gum puller. In an effort to expedite patient care, this report has not been adjusted for typographical, grammatical, and syntax by a trained medical physics professor. Close outpatient follow-up with a low threshold to return has been mandated , concerning symptoms have been emphasized in detail, and this patient expresses understanding Clinical Impression: Cystitis Strep pharyngitis Rosa Cruz PA 10/15/212129 Cosigned by Kirit Everett DO at 10/16/2021 2:48 PM CDT Associated attestation - Kirit Everett DO - 10/16/2021 2:48 PM CDT ED Attestation This patient was independently evaluated by the APC. I was available for immediate consultation andin-person evaluation if required but was not asked to do so. * Analy Mcmillan RN - 10/15/2021 2:08 PM CDT Pt c/o nausea and dizziness, feels lightheaded. Pt states she has been fighting a UTI. On Bactrim. C/o swelling to tongue, sore throat, weakness, lower abd pain. Onset x 2 weeks. documented in this encounter Plan of Treatment Not on file documented as of this encounter Procedures Procedure Name Priority Date/Time Associated Diagnosis Comments CT ABDOMEN PELVIS W CONTRAST ED 10/15/2021 4:06 PM CDT INFLUENZA A/B, RSV, AND COVID-19 PCR Routine 10/15/2021 3:48 PM CDT STREPTOCOCCUS GROUP A PCR STAT 10/15/2021 3:48 PM CDT SEPSIS LACTATE WITH REFLEX STAT 10/15/2021 2:19 PM CDT EGFR STAT 10/15/2021 2:19 PM CDT DIFFERENTIAL AUTO STAT 10/15/2021 2:1 9 PM CDT URINALYSIS AND REFLEX TO MICROSCOPIC AND CULTURE STAT 10/15/2021 2:19 PM CDT CBC WITH AUTO DIFFERENTIAL STAT 10/15/2021 2:19 PM CDT URINALYSIS, MICROSCOPIC ONLY STAT 10/15/2021 2:19 PM CDT URINE CULTURE STAT 10/15/2021 2:19 PM CDT LIPASE STAT 10/15/2021 2:19 PM CDT COMPREHENSIVE METABOLIC PANEL STAT 10/15/2021 2:19 PM CDT documented in this encounter Results * CT Abdomen Pelvis W Contrast (10/15/2021 4:06 PM CDT) Anatomical Region Laterality Modality Body N/A Computed Tomogra phy 10/15/2021 4:12 PM CDT Narrative 10/15/2021 4:24 PM CDT EXAM DESCRIPTION: ?? CT ABDOMEN PELVIS W CONTRAST REASON FOR STUDY: ?? Pyelonephritis, complicated, Right flank pain, concern for pyelonephritis ?? Pt c/o nausea and dizziness, feels lightheaded. ??Pt states she has been fighting a UTI. ??On Bactrim. ??C/o swelling to tongue, sore throat, weakness, lower abd pain. ??Onset x 2 weeks. Pt recently had back stimulator and battery placed. ? TECHNIQUE: CT scan of the abdomen [...] ?? injected via ?? intravenous COMPARISON: ?? 09/11/2021 FINDINGS: LOWER CHEST: ?? No significant pulmonary abnormalities. No effusion. ?? Coronary artery calcification. LIVER: ?? No identified cystic or solid masses on single phase imaging. GALLBLADDER: ?? Surgically absent. BILE DUCTS: ?? Prominent biliary system, likely related to post cholecystectomy state. ?? SPLEEN: ?No focal lesions. PANCREAS: ?? No identified cystic or solid masses. No significant calcifications. No adjacent inflammation or peripancreatic fluid collections. Pancreatic duct not dilated. ADRENALS: ?? Unremarkable. KIDNEYS/URINARY TRACT: ?? 1.4 cm cyst at the midpole of the right kidney. ?? Additional smaller hypodensities are too small to characterize. ??No obstructing stone. ??No hydronephrosis. ?Bladder is partially decompressed, limiting evaluation. GI: Evaluation the gastrointestinal tract is limited by lack of distention and bowel prep. ?Distal esophagus is unremarkable. ??Mild prominence of the gastric fundus, possibly related to a collapsed gastric diverticulum. ??This appears similar as compared to prior. ??No small bowel obstruction. ??Scattered diverticular disease without evidence of acute diverticulitis. ??Appendix is normal in caliber without surrounding inflammatory change. ?? PERITONEUM: ?? No ascites or free air. RETROPERITONEUM: ?? No mass or adenopathy. REPRODUCTIVE: ?? No significant abnormality. VASCULATURE: ?? No abdominal aortic aneurysm. MUSCULOSKELETAL: ?? Multilevel degenerative disc disease. ?? Appearance of the sacroiliac joints are unchanged as compared to prior with questionable erosive change on the left. OTHER: ?? Patient is status post ventral abdominal hernia repair. IMPRESSION: ?? No acute inflammatory process in the abdomen or pelvis. Please see additional findings as above. THIS IS AN ELECTRONICALLY VERIFIED FINAL REPORT 10/15/2021 4:24 PM - Electronically signed by ??Cleo Garza M.D. BG: D: ??10/15/2021 4:24 PM T: ??10/15/2021 4:24 PM Report ID: [id number] Reading Location: ??[id number] Procedure Note Cleo Garza MD - 10/15/2021 EXAM DESCRIPTION: CT ABDOMEN PELVIS W CONTRAST REASON FOR STUDY: Pyelonephritis, complicated, Right flank pain, concernfor pyelonephritis Pt c/o nausea and dizziness, feels lightheaded. Pt states she has been fighting a UTI. On Bactrim. C/o swelling to tongue, sore throat,weakness, lower abd pain. Onset x 2 weeks. Pt recently had back stimulator andbattery placed. TECHNIQUE: CT scan of the abdomen and pelvis performed with intravenousand without oral contrast using helical scanning technique with dynamic intravenous contrast injection. Reconstructed coronal and sagittal MPRimages reviewed. All images stored on PACS. Automated exposure control was used as a dose optimization technique forthis examination. CONTRAST TYPE/DOSE: 100mL of IOVERSOL 350 MG IODINE/ML INTRAVENOUSSYRINGE injected via intravenous COMPARISON: 09/11/2021 FINDINGS: LOWER CHEST: No significant pulmonary abnormalities. Noeffusion. Coronary artery calcification. LIVER: No identified cystic or solid masses on single phase imaging. GALLBLADDER: Surgically absent. BILE DUCTS: Prominent biliary system, likely related to postcholecystectomy state. SPLEEN: No focal lesions. PANCREAS: No identified cystic or solid masses. No significant calcifications. No adjacent inflammation or peripancreatic fluidcollections. Pancreatic duct not dilated. ADRENALS: Unremarkable. KIDNEYS/URINARY TRACT: 1.4 cm cyst at the midpole of the right kidney. Additional smaller hypodensities are too small to characterize. No obstructing stone. No hydronephrosis. Bladder is partiallydecompressed, limiting evaluation. GI: Evaluation the gastrointestinal tract is limited by lack of distentionand bowel prep. Distal esophagus is unremarkable. Mild prominence of the gastric fundus, possibly related to a collapsed gastric diverticulum.This appears similar as compared to prior. No small bowel obstruction.Scattered diverticular disease without evidence of acute diverticulitis. Appendixis normal in caliber without surrounding inflammatory change. PERITONEUM: No ascites or free air. RETROPERITONEUM: No mass or adenopathy. REPRODUCTIVE: No significant abnormality. VASCULATURE: No abdominal aortic aneurysm. MUSCULOSKELETAL: Multilevel degenerative disc disease. Appearance ofthe sacroiliac joints are unchanged as compared to prior with questionableerosive change on the left. OTHER: Patient is status post ventral abdominal hernia repair. IMPRESSION: No acute inflammatory process in the abdomen or pelvis. Please see additional findings as above. THIS IS AN ELECTRONICALLY VERIFIED FINAL REPORT 10/15/2021 4:24 PM - Electronically signed by Cleo Garza M.D. BG: BG Report ID: [id number] Reading Location: [id number] us Rosa MCKEON IMG CT PROCEDURES Final Result * (ABNORMAL) Streptococcus Group A PCR (10/15/2021 3:48 PM CDT) Strep A DNA Detected( A) Not Detected MARY JANE PHAM Comment: This test is performed using the [employer] Xpert Group A Streptococcal Assay. This is [...] by the performing laboratory. Testing performed by: [address] [address] Throat 10/15/2021 3:48 PM CDT 10/15/2021 3:51 PM CDT us Rosa MCKEON LAB MICROBIOLOGY - GENERAL ORDE [facility] Final Result MARY JANE [address] [facility] Department [place] [address] * Influenza A/B, RSV, and COVID-19 PCR Nasopharyngeal (10/15/2021 3:48 PM CDT) Pathologist [facility] COVID-19 RNA Negative Negative MARY JANE Comment:Testing performed by : [address] [address] Influenza A RNA Negative Negative MARY JANE Comment:Testing performed by : [address] [address] Influenza B RNA Negative Negative MARY JANE Comment:Testing performed by : [address] [address] RSV RNA Negative Negative MARY JANE Comment: Interpretive data: This test is performed using the [employer] Xpert Xpress CoV-2/Flu/RSV plus assay. This is [...] Data last revised 2021. Testing performed by: [facility], [address] [place] [address]., [address] Nasopharyngeal 10/15/2021 3: 48 PM CDT 10/15/2021 3:51 PM CDT Narrative MARY JANE - 10/15/2021 4:32 PM CDT Is the Patient experiencing symptoms consistent with COVID?->Yes Date of Symptom Onset->10/13/21 Reason for testing?->Symptomatic Rosa MCKEON LAB MICROBIOLOGY - GENERAL ANGEL SPEARS Final Result MARY JANE [facility] Department [place] [address] * (ABNORMAL) Urine culture Urine (10/15/2021 2:19 PM CDT) Report Final Report: Greater than or equal to 100,000 colonies/mL of Escherichia coli (.) MARY JANE Comment:Testing performed by : [facility], [address] [facility] [place]., [address] Organism ESCHERICHIA COLI MARY JANE Urine 10/15/2021 2:19 PM CDT 10/15/2021 7:36 PM CDT Narrative MARY JANE - 10/17/2021 11:03 AM CDT Urine culture reflexed based upon urinalysis results. Testing performed by [facility] Microbiology Laboratory ([phone]) Organism Antibiotic Method Susceptibility Escherichia coli Ampicillin [...] Escherichia coli Cefdinir INTERPRETATION Susceptible Blaze Armenta NP LAB MICROBIOLOGY - GENERAL ORDER [place] Final Result MARY JANE PHAM [phone] [facility] Department [place] [address] * eGFR (10/15/2021 2:19 PM CDT) eGFR 63 mL/min/1. 73 m2 MARY JANE PHAM Comment: [...] was last reviewed 2021. Testing performed by: [facility], [address] [place] [address]., [address] Blood 10/15/2021 2:19 PM CDT 10/15/2021 2:22 PM CDT Blaze Armenta TUBE CLEANING OPERATOR LAB BLOOD ORDERABLES Final Resul t Performing Organization Address [facility] Co de Phone Number MARY JANE [address] [facility] [place] [place] [address] * (ABNORMAL) Urinalysis, microscopic only (10/15/2021 2:19 PM CDT) WBC, ur >50(A) 0 - 5 /HPF MARY JANE Comment:Testing performed by : [address] [address] RBC, ur 11-20(A) 0 - 2 /HPF MARY JANE Comment:Testing performed by : [address] [address] Epithelial cells, squamous, ur 1-5 0 - 5 /HPF MARY JANE Comment:Testing performed by : [address] [address] Bacteria, ur 1+(A) MARY JANE Comment:Testing performed by : [address] [address] Mucous, ur Present(A) MARY JANE Comment:Testing performed by : [address] [address] Hyaline casts, ur 1-5 0 - 10 /LPF MARY JANE Comment:Testing performed by : [address] [address] Culture Reflex Comment Reflex to urine culture will be performed. MARY JANE Comment:Testing performed by : [address] [address] Urine 10/15/2021 2:19 PM CDT 10/15/2021 2:28 PM CDT Blaze Armenta TUBE CLEANING OPERATOR LAB URINE ORDERABLES Final Resul t Performing Organization Address City/[facility]/ZIP Co de Phone Number MARY JANE [address] [facility] [place] [address] * Differential, auto (10/15/2021 2:19 PM CDT) Neutrophil abs 6.5 1.7 - 6.5 K/cumm MARY JANE Comment:Testing performed by : [address] [address] Imm gran abs 0.0 0.0 - 0.1 K/cumm MARY JANE Comment:Testing performed by : [address] [address] Lymphocyte abs 2.7 0.8 - 3.3 K/cumm MARY JANE Comment:Testing performed by : [address] [address] Monocyte abs 0.8 0.2 - 0.8 K/cumm MARY JANE Comment:Testing performed by : [address] [address] Eosinophil abs 0.4 0.0 - 0.5 K/cumm MARY JANE Comment:Testing performed by : [address] [address] Basophil abs 0.1 0.0 - 0.1 K/cumm [facility] Comment:Testing performed by : [address] [address] Neutrophil pct 62.2 % [facility] Comment: Interpretive Data Percent cell count reference ranges are not reported, since discordance with absolute values may lead to misinterpretation of CBC data. Current Interpretive Data was last revised on 2017. Testing performed by: [address] [address] Imm gran pct 0.4 % [facility] Comment: Interpretive Data Percent cell count reference ranges are not reported, since discordance with absolute values may lead to misinterpretation of CBC data. Current Interpretive Data was last revised on 2017. Testing performed by: [address] [address] Lymphocyte pct 25.6 % [facility] Comment: Interpretive Data Percent cell count reference ranges are not reported, since discordance with absolute values may lead to misinterpretation of CBC data. Current Interpretive Data was last revised on 2017. Testing performed by: [address] [address] Monocyte pct 7.4 % MARY JANE Comment: Interpretive Data Percent cell count reference ranges are not reported, since discordance with absolute values may lead to misinterpretation of CBC data. Current Interpretive Data was last revised on 2017. Testing performed by: [address] [address] Eosinophil pct 3.9 % MARY JANE Comment: Interpretive Data Percent cell count reference ranges are not reported, since discordance with absolute values may lead to misinterpretation of CBC data. Current Interpretive Data was last revised on 2017. Testing performed by: [address] [address] Basophil pct 0.5 % MARY JANE Comment: Interpretive Data Percent cell count reference ranges are not reported, since discordance with absolute values may lead to misinterpretation of CBC data. Current Interpretive Data was last revised on 2017. Testing performed by: [address] [address] Blood 10/15/2021 2:19 PM CDT 10/15/2021 2:22 PM CDT us Blaze Armenta NP LAB BLOOD ORDERABLES Final Resul t [facility] [address] [facility] Department of Laboratories [place], [place] [id number] * (ABNORMAL) Urinalysis reflex to microscopic and culture Urine (10/15/2021 2:19 PM CDT) Color, ur Yellow Yellow MARY JANE Comment:Testing performed by : [address] [address] Clarity, ur Cloudy(A) Clear MARY JANE PHAM Comment:Testing performed by : [address] [address] Specific gravity, ur 1.019 1.003 - 1.030 MARY JANE PHAM Comment:Testing performed by : [address] [address] pH, urine 5.0 MARY JANE Comment:Testing performed by : [facility], [address] [place] [address], [place]., [address] Protein, ur ql Negative Negative MARY JANE Comment:Testing performed by : [facility], [address] [place] [address], [place]., [address] Glucose, ur ql Negative Negative MARY JANE Comment:Testing performed by : [address], [place]., [address] Ketones, ur Negative Negative MARY JANE Comment:Testing performed by : [address], [place]., [address] Bilirubin, ur Negative Negative MARY JANE Comment:Testing performed by : [address], [place]., [address] Blood, ur 1+(A) Negative MARY JANE Comment:Testing performed by : [address], [place]., [address] Urobilinogen, ur <2.0 <2.0 mg/dL MARY JANE Comment:Testing performed by : [address], [place]., [address] Nitrite, ur Negative Negative MARY JANE Comment:Testing performed by : [address], [place]., [address] Leukocyte esterase, ur 3+(A) Negative MARY JANE Comment:Testing performed by : [address], [place]., [address] UA reflex comment Reflex to microscopic UA will be performed. MARY JANE Comment:Testing performed by : [address] [address] Urine 10/15/2021 2:19 PM CDT 10/15/2021 2:28 PM CDT Narrative MARY JANE - 10/15/2021 2:34 PM CDT ?? Urine pH is affected by diet, medications, systemic acid-base disturbances, and renal tubular function. ??pH may affect urinary stone formation. ??For example, urine pH below 6.0 may help reduce the tendency for calcium phosphate stones and pH greater than 6.0 may reduce the tendency for uric acid stone formation. Source: Jerez Mobiveil. Last revised 05-04-2017 Blaze Armenta NP LAB MICROBIOLOGY - GENERAL ORDER [place] Final Result Performing Organization Address [facility] Co de Phone Number [address] [address] * Lipase (10/15/2021 2:19 PM CDT) Lipase 20 10 - 99 Units/L MARY JANE PHAM Comment:Testing performed by : [address] [address] Blood 10/15/2021 2:19 PM CDT 10/15/2021 2:22 PM CDT Blaze Armenta LAB BLOOD ORDERABLES Final Resul t Performing Organization Address [facility] de Phone Number [address] [place] [place] [address] * Sepsis Lactate w/ Reflex (10/15/2021 2:19 PM CDT) Pathologist [facility] Sepsis Lactate 1.9 0.7 - 2.0 mmol/L MARY JANE Comment:Testing performed by : [address] [address] Blood 10/15/2021 2:19 PM CDT 10/15/2021 2:22 PM CDT Blaze Armenta LAB BLOOD ORDERABLES Final Resul t Performing Organization Address [facility] de Phone Number [address] [address] * (ABNORMAL) Comprehensive metabolic panel (10/15/2021 2:19 PM CDT) Sodium 134(L) 135 - 145 mmol/L MARY JANE PHAM Comment:Testing performed by : [address] [address] Potassium, pl 4.6 3.3 - 4.9 mmol/L MARY JANE PHAM Comment:Testing performed by : [address] [address] Chloride 99 97 - 110 mmol/L MARY JANE Comment:Testing performed by : [address], [place]., [address] CO2 25 22 - 32 mmol/L MARY JANE Comment:Testing performed by : [address], [place]., [address] Anion gap 10 2 - 15 mmol/L MARY JANE Comment:Testing performed by : [address] [address] BUN 15 8 - 25 mg/dL [facility] Comment:Testing performed by : [address], [place]., [address] Creatinine 1.00 0.60 - 1.10 mg/dL MARY JANE Comment:Testing performed by : [address], [place]., [address] Glucose 172 70 - 199 mg/dL [facility] Comment: Interpretive Data Fasting glucose >/= [...] was last revised 2017. Testing performed by: [address] [address] Calcium 9.9 8.5 - 10.3 mg/dL [facility] Comment:Testing performed by : [address] [address] Bilirubin, total 0.3 0.1 - 1.2 mg/dL MARY JANE Comment:Testing performed by : [address] [address] Protein, pl 8.4 6.5 - 8.5 g/dL MARY JANE Comment:Testing performed by : [address] [address] Albumin 3.9 3.5 - 5.0 g/dL MARY JANE PHAM Comment:Testing performed by : [address] [address] Alk phos 87 40 - 130 Units/L MARY JANE PHAM Comment:Testing performed by : [address] [address] ALT 21 7 - 45 Units/L MARY JANE PHAM Comment:Testing performed by : [address] [address] AST 18 10 - 45 Units/L MARY JANE PHAM Comment:Testing performed by : [address] [address] Blood 10/15/2021 2:19 PM CDT 10/15/2021 2:22 PM CDT us Blaze Armenta NP LAB BLOOD ORDERABLES Final Resul t MARY JANE [facility] [place] [address] * (ABNORMAL) CBC with auto differential (10/15/2021 2:19 PM CDT) WBC 10.5(H) 3.8 - 9.9 K/cumm MARY JANE PHAM Comment:Testing performed by : [address] [address] Hgb 13.0 11.9 - 15.5 g/dL MARY JANE PHAM Comment:Testing performed by : [address] [address] Hct 41.0 35.6 - 45.5 % MARY JANE PHAM Comment:Testing performed by : [address] [address] Plt 311 150 - 400 K/cumm MARY JANE PHAM Comment:Testing performed by : [address] [address] MPV 9.4 9.1 - 12.3 fL MARY JANE PHAM Comment:Testing performed by : [address] [address] RBC 4.43 3.90 - 5.20 M/cumm CERNER MH Comment:Testing performed by : [facility], [address] [place] [address]., [address] MCV 92.6 81.3 - 96.4 fL MARY JANE Comment:Testing performed by : [address] [address] MCH 29.3 27.1 - 33.3 pg MARY JANE PHAM Comment:Testing performed by : [address] [address] MCHC 31.7(L) 32.3 - 35.7 g/dL MARY JANE Comment:Testing performed by : [address] [address] RDW CV 13.7 11.1 - 14.9 % MARY JANE Comment:Testing performed by : [address] [address] RDW SD 47.2 35.7 - 48.1 fL MARY JANE Comment:Testing performed by : [address] [address] NRBC abs 0.00 0.00 - 0.01 K/cumm MARY JANE Comment:Testing performed by : [address] [address] Blood 10/15/2021 2:19 PM CDT 10/15/2021 2:22 PM CDT us Blaze Armenta NP LAB BLOOD ORDERABLES Final Resul t MARY JANE [address] [facility] [place] [address] documented in this encounter Visit Diagnoses Diagnosis Cystitis- Primary Unspecified cystitis Strep pharyngitis documented in this encounter Administered Medications Inactive Administered Medications - up to 3 most recent administrations Medication Order MAR Action Action Date Dose Rate Site ertapenem (INVanz) 1,000 mg in sodium chloride 0.9% 100 mL IVPB 1,000 mg, intravenous, at 200 mL/hr, Administer over 30 Minutes, Once, On Mon10/15/21 at 1745, For 1 dose, Do not mix with dextrose or other medications. Mini-bag Plus, Indications: Urinary Tract/Genitourinary InfectionIndications:Urin sloane Tract/Genitourinary Infection New Bag 10/15/2021 5:42 PM CDT 1,000 mg 200 mL/hr ioversoL (OPTIRAY 350) syringe syringe 125 mL 125 mL, intravenous, Once in imaging, contrast, Starting on Mon10/15/21 at 1603, For 1 dose Contrast Given 10/15/2021 4:01 PM CDT 100 mL morphine injection 2 mg 2 mg, intravenous, Administer over 4 Minutes, Once, On Mon10/15/21 at 1529, For 1 dose Given 10/15/2021 3:34 PM CDT 2 mg morphine injection 2 mg 2 mg, intravenous, Administer over 4 Minutes, Once, On Mon10/15/21 at 1820, For 1 dose Given 10/15/2021 6:45 PM CDT 2 mg ondansetron (ZOFRAN) injection 4 mg 4 mg, intravenous, Administer over 2 Minutes, Once, On Mon10/15/21 at 1529, For 1 dose Given 10/15/2021 3:33 PM CDT 4 mg sodium chloride 0.9% bolus 1,000 mL 1,000 mL, intravenous, Once, On Mon10/15/21 at 1641, For 1 dose New Bag 10/15/2021 4:51 PM CDT 1,000 mL documented in this encounter Active and Recently Administered Medications Times are shown in CDT. Scheduled Medication Order 10/13/2021 10/14/2021 10/15/2021 ertapenem (INVanz) 1,000 mg in sodium chloride 0.9% 100 mL IVPB (COMPLETED) 1,000 mg, intravenous, at 200 mL/hr, Administer over 30 Minutes, Once, On Mon10/15/21 at 1745, For 1 dose, Do not mix with dextrose or other medications. Mini-bag Plus, Indications: Urinary Tract/Genitourinary Infection 1741 (New Bag - Prov ider: Tammy Ayala RN)181 (Stopped - Provider: Tammy Ayala RN) morphine injection 2 mg (COMPLETED) 2 mg, intravenous, Administer over 4 Minutes, Once, On Mon10/15/21 at 1529, For 1 dose 1534 (Given - Provid er: Mauro Lombardo RN) morphine injection 2 mg (COMPLETED) 2 mg, intravenous, Administer over 4 Minutes, Once, On Mon10/15/21 at 1820, For 1 dose 1845 (Given - Provid er: Tammy Ayala RN) ondansetron (ZOFRAN) injection 4 mg (COMPLETED) 4 mg, intravenous, Administer over 2 Minutes, Once, On Mon10/15/21 at 1529, For 1 dose 1533 (Given - Provid er: Mauro Lombardo RN) sodium chloride 0.9% bolus 1,000 mL (COMPLETED) 1,000 mL, intravenous, Once, On Mon10/15/21 at 1641, For 1 dose 1651 (New Bag - Prov ider: Tammy Ayala RN)1816 (Stopped - Provider: Tammy Ayala RN) PRN Medication Order 10/13/2021 10/14/2021 10/15/2021 ioversoL (OPTIRAY 350) syringe syringe 125 mL (COMPLETED) 125 mL, intravenous, Once in imaging, contrast, Starting on Mon10/15/21 at 1603, For 1 dose 1601 (Contrast Given - Provider: RT Joey) documented in this encounter Additional Health Concerns Infection Onset Date Last Indicated Resolved Time COVID: Suspected 10/15/2021 10/15/2021 10/15/2021 4:33 PM CDT documented as of this encounter Care Teams 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 Relationship Specialty Start Date End Date Justen Gale MD [address] [address] PCP - General 10/09/17 Liu Jerez MD Consulting Physician Gastroenterology 07/28/17 [place] [address] [facility] [address] [place] [address] Consulting Physician Pulmonary Disease 08/03/17 Khris Arthur MD [address] [facility] [address] [place] [address] Medical Oncologist/Map Editor Medical Oncology 10/23/17 [place] [address] [address] [facility] [address] [place] [address] Surgeon Orthopedic Surgery 10/23/17 [place] [address] [address] Consulting Physician Pain Management 10/23/17 [place] [address] [facility] [address] [place] [address] Referring Physician General Surgery 01/26/18 [place] [address] [facility] [address] [place] [address] Consulting Physician Neurology 01/26/18 documented as of this encounter
--- OUTSIDE RECORDS SUMMARY | 2024-04-26 04:21 | XMS_ITS | Encounter Summary ---
Author Organization [facility] Healthcare Address [address] [place] [address] Care Team Providers Care Rag Sorter And Cutter Name Role Phone Liu Jerez MD Unavailable [phone] Albert Corbin MD Unavailable [phone] Justen Gale MD Primary Care Provider [phone] Khris Arthur MD Unavailable [phone] Ko Melendez MD Unavailable John Paul Moyer MD Unavailable Annel Rod MD Unavailable Anali MARSHALL MD, Carlos M. 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 Gender Identity Not on file Sexual Orientation Not on file documented as of this encounter Last Filed Vital Signs Vital Sign Reading Time Taken Comments Blood Pressure 184/114 10/25/2021 6:05 PM CDT Pulse 82 10/25/2021 6:05 PM CDT Temperature 36.4 ??C (97.5 ??F) 10/25/2021 1:45 PM CD T Respiratory Rate 20 10/25/2021 6:05 PM CDT Oxygen Saturation 98% 10/25/2021 6:05 PM CDT Inhaled Oxygen Concentration - - Weight 131.5 kg (289 lb 14.5 oz) 10/25/2021 1:45 PM CDT Height 154.9 cm (5' 1 ) 10/25/2021 1:45 PM CDT Body Mass Index 54.78 10/25/2021 1:45 PM CDT documented in this encounter Discharge Instructions * Discharge Instructions* Marin Tate PA - 10/25/2021 5:58 PM CDT As discussed, please return to the ER if you develop fever, abdominal pain, or worsening urinary symptoms. Follow-up as recommended is mandatory. You have [...] Care Everywhere. * Urinary Tract Infection in Older Adults (General Information) (Citizen Of [place]) documented in this encounter Medications at Time [...] times a day before meals. 01/26/2018 4 lidocaine viscous (XYLOCAINE) 2 % solution Take 5-10 mL by mouth every 4 (four) hours as needed (sorethroat) 200 mL 10/21/2021 3 mupirocin (BACTROBAN) 2 % ointment mupirocin 2 % topical ointment 3 ondansetron (ZOFRAN) 4 mg tablet Take 1 tablet (4 mg total) by mouth every 4 (four) hours as needed for nausea or vomiting 20 tablet 10/21/2021 2 oxybutynin (DITROPAN) 5 mg tablet take 1 [...] ED Notes * Marin Tate PA - 10/25/2021 3:52 PM CDT HPI Chief Complaint Patient presents with ??? Sore Throat ??? Urinary Problem HPI 5:59 PM Karly Marques is a 66 y.o. female presenting to the ED with multiple concerns today. Patient reporting irritative voiding symptoms, including frequent urination and dysuria, that has beenongoing on and off for the last 2 months. Patient also reports sore throat since having back surgery one month ago for sacral neuromodulator device for back pain. Reports continuation of sore throat but has not followed up with ENT. Was seen on 10/15/21 and diagnosed with strep. Pt also reports lower back pain x 3 days, no injury. Denies fever, nausea/vomiting. Patient History: Past Medical History: Diagnosis Date [...] ??? Tobacco comment: remote tobacco use Substance and Sexual Activity ??? Drug use: Not on file ??? Sexual activity: Defer Alcohol Use: Not At Risk ??? Frequency of Alcohol Consumption: Never ??? Average Number of Drinks: Patient does not drink ??? Frequency of Binge Drinking: Never No current facility-administered medications for this encounter. Current Outpatient Medications: ??? albuterol HFA (PROVENTIL HFA,VENTOLIN HFA,PROAIR HFA) 90 mcg/actuation inhaler ??? amitriptyline (ELAVIL) 25 mg tablet ??? BD Ultra-Fine Short Pen Needle 31 gauge x 5/16 needle ??? blood glucose diagnostic (Woisiouch Ultra Test) strip ??? exemestane (AROMASIN) 25 mg tablet ??? HYDROcodone-acetaminophen (NORCO) 7.5-325 mg per tablet ??? insulin glargine (LANTUS) 100 unit/mL injection ??? insulin lispro (HumaLOG) 100 unit/mL injection ??? lidocaine viscous (XYLOCAINE) 2 % solution ??? mupirocin (BACTROBAN) 2 % ointment ??? naloxone (NARCAN) 4 mg/actuation spray,non-aerosol ??? ondansetron (ZOFRAN) 4 mg tablet ??? oxybutynin (DITROPAN) 5 mg tablet ??? pantoprazole DR (PROTONIX) 40 mg EC tablet ??? rivaroxaban (Xarelto) 20 mg tablet ??? rOPINIRole (REQUIP) 5 mg tablet Review of Systems Review of Systems Constitutional: Negative for fever. HENT: Positive for sore throat. Negative for congestion. Eyes: Negative for redness. Respiratory: Negative for cough. Cardiovascular: Negative for chest pain. Gastrointestinal: Negative for abdominal pain, diarrhea and vomiting. Genitourinary: Positive for dysuria and frequency. Musculoskeletal: Positive for back pain. Negative for myalgias. Neurological: Negative for weakness. Psychiatric/Behavioral: Negative for confusion. Physical Exam ED Triage Vitals Temp Pulse Resp BP SpO2 10/25/21 1345 10/25/21 1345 10/25/21 1345 10/25/21 1345 10/25/21 1345 36.4 ??C (97.5 ??F) 96 18 164/92 97 % Temp src Heart Rate Source Patient Position BP Location FiO2 (%) 10/25/21 1345 10/25/21 1559 10/25/21 1559 10/25/21 1559 -- Temporal Monitor Sitting Left arm Height Height Method Weight Weight Method 10/25/21 1345 10/25/21 1345 10/25/21 1345 10/25/21 1345 1.549 m (5' 1 ) Stated 131.5 kg (289 lb 14.5 oz) Standing scale Physical Exam Vitals and nursing note reviewed. Constitutional: General: She is not in acute distress. Appearance: Normal appearance. She is not ill-appearing or toxic-appearing. HENT: Head: Normocephalic and atraumatic. Right Ear: External ear normal. Left Ear: External ear normal. Nose: Nose normal. Mouth/Throat: Mouth: Mucous membranes are moist. Pharynx: Uvula midline. Pharyngeal swelling and posterior oropharyngeal erythema present. No oropharyngeal exudate or uvula swelling. Eyes: Extraocular Movements: Extraocular movements intact. Pupils: [...] time. Psychiatric: Mood and Affect: Mood normal. Procedures [facility] Labs Reviewed URINALYSIS AND REFLEX TO MICROSCOPIC AND CULTURE - Abnormal Result Value Color, ur Yellow Clarity, ur Cloudy (*) Specific gravity, ur 1.017 pH, urine 6.0 Protein, ur ql Negative [...] tendency for uric acid stone formation. Source: [facility] [employer].Last revised 05-04-2017 URINALYSIS, MICROSCOPIC ONLY - Abnormal WBC, ur >50 (*) RBC, ur 11-20 (*) Epithelial cells, squamous, ur 11-20 (*) Bacteria, ur Trace (*) Mucous, ur Present (*) Culture Reflex Comment Reflex to urine culture will be performed. CBC WITH AUTO DIFFERENTIAL - Abnormal WBC 11.6 (*) Hgb 12.6 Hct 40.1 Plt 299 MPV 9.1 RBC 4.38 MCV 91.6 MCH 28.8 MCHC 31.4 (*) RDW CV 13.7 RDW SD 46.5 NRBC abs 0.00 DIFFERENTIAL AUTO - Abnormal Neutrophil abs 7.8 (*) Imm gran abs 0.1 Lymphocyte abs 2.4 Monocyte abs 1.0 (*) Eosinophil abs 0.3 Basophil abs 0.0 Neutrophil pct 67.5 Imm gran pct 0.4 Lymphocyte pct 20.4 Monocyte pct 8.5 Eosinophil pct 2.9 Basophil pct 0.3 URINE CULTURE STREPTOCOCCUS GROUP A PCR Strep A DNA Not Detected COMPREHENSIVE METABOLIC PANEL Sodium 139 Potassium, pl 4.3 Chloride 103 CO2 28 Anion gap 8 BUN 18 Creatinine 0.80 Glucose 131 Calcium 10.1 Bilirubin, total 0.4 Protein, pl 8.3 Albumin 3.9 Alk phos 89 ALT 15 AST 17 EGFR eGFR 82 No orders to display BP 160/100 (BP Location: Left arm, Patient Position: Sitting) Pulse 96 Temp 36.4 ??C (97.5 ??F)(Temporal) Resp 22 Ht 154.9 cm (5' 1 ) Wt 131.5 kg (289 lb 14.5 oz) SpO2 98% BMI 54.78 kg/m?? ED Course: Pt afebrile, not tachycardic. WBC 11.6. Does not meet SIRS criteria at this time and appears very well. UA + UTI today. Negative strep. Pt was seen on 10/15 for same symptoms, diagnosed with UTI and strep pharyngitis. D/t extensive allergies, pharm recommended IV ertapenum with single dose fosfomycin the next day. Pt was seen on 10/21 for similar symptoms and reporting generalized weakness. Pt was encouraged to follow up with ENT for sore throat evaluation. Today pt stating that from 10/15 to 10/21 her urinary sximproved but never fully resolved. However, UA showed clearance of infection on this date. Today's visit with + UTI again. D/w pharm regarding allergies. Previous culture on 10/15 pansusceptible except for Bactrim. Plan was to give PO Macrobid. However, pt cites hives with Macrobid. D/w Pharm -- 3 g fosfomycin given in the ED. Strict return precautions advised for pt, who was stable for d/c home. Clinical Impression: Acute cystitis without hematuria Marin Tate PA 10/25/21 1835 Cosigned by Virgie Angulo MD at 10/25/2021 9:38 PM CDT * Justen Todd RN - 10/25/2021 1:43 PM CDT Pt reports she was seen in this ED recently and diagnosed with UTI. Pt reports was given a prescription for antibiotic. Pt reports she is having increased urinary frequency and urgency. Pt report shewas also told she had strep and continues to have sore throat. Pt also reports low back pain x3 days, pt reports surgery 1 month ago to insert pain stimulator, pt states one of her incisions is oozing. Denies fever. documented in this encounter Plan of Treatment Not on file documented as of this encounter Procedures Procedure Name Priority Date/Time Associated Diagnosis Comments EGFR STAT 10/25/2021 4:32 PM CDT DIFFERENTIAL AUTO STAT 10/25/2021 4:3 2 PM CDT CBC WITH AUTO DIFFERENTIAL STAT 10/25/2021 4:32 PM CDT COMPREHENSIVE METABOLIC PANEL STAT 10/25/2021 4:32 PM CDT STREPTOCOCCUS GROUP A PCR STAT 10/25/2021 1:58 PM CDT URINALYSIS AND REFLEX TO MICROSCOPIC AND CULTURE STAT 10/25/2021 1:58 PM CDT URINALYSIS, MICROSCOPIC ONLY STAT 10/25/2021 1:58 PM CDT URINE CULTURE Add-On 10/25/2021 1:57 PM CDT documented in this encounter Results * eGFR (10/25/2021 4:32 PM CDT) eGFR 82 mL/min/1. 73 m2 MARY JANE PHAM Comment: [...] was last reviewed 2021. Testing performed by: [address] [address] Blood 10/25/2021 4:32 PM CDT 10/25/2021 4:36 PM CDT us Marin MCKEON LAB BLOOD ORDERABLES Deann l Result Performing Organization Address City/State/[facility] Co de Phone Number MARY JANE [address] Department [place] [address] * (ABNORMAL) Differential, auto (10/25/2021 4:32 PM CDT) Neutrophil abs 7.8(H) 1.7 - 6.5 K/cumm MARY JANE PHAM Comment:Testing performed by : [address] [address] Imm gran abs 0.1 0.0 - 0.1 K/cumm MARY JANE PHAM Comment:Testing performed by : [address] [address] Lymphocyte abs 2.4 0.8 - 3.3 K/cumm [facility] Comment:Testing performed by : [address] [address] Monocyte abs 1.0(H) 0.2 - 0.8 K/cumm [facility] Comment:Testing performed by : [address], [place]., [address] Eosinophil abs 0.3 0.0 - 0.5 K/cumm [facility] Comment:Testing performed by : [address], [place]., [address] Basophil abs 0.0 0.0 - 0.1 K/cumm [facility] Comment:Testing performed by : [address] [address] Neutrophil pct 67.5 % [facility] Comment: Interpretive Data Percent cell count reference ranges are not reported, since discordance with absolute values may lead to misinterpretation of CBC data. Current Interpretive Data was last revised on 2017. Testing performed by: [address] [address] Imm gran pct 0.4 % [facility] Comment: Interpretive Data Percent cell count reference ranges are not reported, since discordance with absolute values may lead to misinterpretation of CBC data. Current Interpretive Data was last revised on 2017. Testing performed by: [address] [address] Lymphocyte pct 20.4 % [facility] Comment: Interpretive Data Percent cell count reference ranges are not reported, since discordance with absolute values may lead to misinterpretation of CBC data. Current Interpretive Data was last revised on 2017. Testing performed by: [address] [address] Monocyte pct 8.5 % [facility] Comment: Interpretive Data Percent cell count reference ranges are not reported, since discordance with absolute values may lead to misinterpretation of CBC data. Current Interpretive Data was last revised on 2017. Testing performed by: [address] [address] Eosinophil pct 2.9 % [facility] Comment: Interpretive Data Percent cell count reference ranges are not reported, since discordance with absolute values may lead to misinterpretation of CBC data. Current Interpretive Data was last revised on 2017. Testing performed by: [address] [address] Basophil pct 0.3 % MARY JANE PHAM Comment: Interpretive Data Percent cell count reference ranges are not reported, since discordance with absolute values may lead to misinterpretation of CBC data. Current Interpretive Data was last revised on 2017. Testing performed by: [address] [address] Blood 10/25/2021 4:32 PM CDT 10/25/2021 4:36 PM CDT us Marin MCKEON LAB BLOOD ORDERABLES Deann l Result MARY JANE [facility] Department [place] [address] * Comprehensive metabolic panel (10/25/2021 4:32 PM CDT) Sodium 139 135 - 145 mmol/L MARY JANE Comment:Testing performed by : [address] [address] Potassium, pl 4.3 3.3 - 4.9 mmol/L MARY JANE Comment:Testing performed by : [address] [address] Chloride 103 97 - 110 mmol/L MARY JANE Comment:Testing performed by : [address] [address] CO2 28 22 - 32 mmol/L MARY JANE Comment:Testing performed by : [address] [address] Anion gap 8 2 - 15 mmol/L MARY JANE Comment:Testing performed by : [address] [address] BUN 18 8 - 25 mg/dL MARY JANE Comment:Testing performed by : [address] [address] Creatinine 0.80 0.60 - 1.10 mg/dL MARY JANE Comment:Testing performed by : [address] [address] Glucose 131 70 - 199 mg/dL MARY JANE Comment: [...] was last revised 2017. Testing performed by: [address] [address] Calcium 10.1 8.5 - 10.3 mg/dL [facility] Comment:Testing performed by : [address] [address] Bilirubin, total 0.4 0.1 - 1.2 mg/dL [facility] Comment:Testing performed by : [address] [address] Protein, pl 8.3 6.5 - 8.5 g/dL [facility] Comment:Testing performed by : [address] [address] Albumin 3.9 3.5 - 5.0 g/dL [facility] Comment:Testing performed by : [address] [address] Alk phos 89 40 - 130 Units/L [facility] Comment:Testing performed by : [address] [address] ALT 15 7 - 45 Units/L MARY JANE Comment:Testing performed by : [address] [address] AST 17 10 - 45 Units/L MARY JANE Comment:Testing performed by : [address] [address] Blood 10/25/2021 4:32 PM CDT 10/25/2021 4:36 PM CDT us Marin MCKEON LAB BLOOD ORDERABLES Deann colby Result MARY JANE [address] Department [place] [address] * (ABNORMAL) CBC with auto differential (10/25/2021 4:32 PM CDT) Pathologist [facility] [place] WBC 11.6(H) 3.8 - 9.9 K/cumm MARY JANE Comment:Testing performed by : [address] [address] Hgb 12.6 11.9 - 15.5 g/dL MARY JANE Comment:Testing performed by : [address] [address] Hct 40.1 35.6 - 45.5 % MARY JANE Comment:Testing performed by : [address] [address] Plt 299 150 - 400 K/cumm MARY JANE Comment:Testing performed by : [address] [address] MPV 9.1 9.1 - 12.3 fL MARY JANE Comment:Testing performed by : [address] [address] RBC 4.38 3.90 - 5.20 M/cumm MARY JANE Comment:Testing performed by : [address] [address] MCV 91.6 81.3 - 96.4 fL MARY JANE Comment:Testing performed by : [address] [address] MCH 28.8 27.1 - 33.3 pg MARY JANE Comment:Testing performed by : [address] [address] MCHC 31.4(L) 32.3 - 35.7 g/dL MARY JANE Comment:Testing performed by : [address] [address] RDW CV 13.7 11.1 - 14.9 % MARY JANE PHAM Comment:Testing performed by : [address] [address] RDW SD 46.5 35.7 - 48.1 fL MARY JANE PHAM Comment:Testing performed by : [address] [address] NRBC abs 0.00 0.00 - 0.01 K/cumm MARY JANE PHAM Comment:Testing performed by : [address] [address] Blood 10/25/2021 4:32 PM CDT 10/25/2021 4:36 PM CDT us Marin MCKEON LAB BLOOD ORDERABLES Deann bowman Result MARY JANE [address] Department [place] [address] * (ABNORMAL) Urinalysis, microscopic only (10/25/2021 1:58 PM CDT) WBC, ur >50(A) 0 - 5 /HPF MARY JANE Comment:Testing performed by : [address] [address] RBC, ur 11-20(A) 0 - 2 /HPF MARY JANE Comment:Testing performed by : [address] [address] Epithelial cells, squamous, ur 11-20(A) 0 - 5 /HPF MARY JANE Comment: Suggestive of contamination. Consider recollection by clean catch. Testing performed by: [address] [address] Bacteria, ur Trace(A) MARY JANE Comment:Testing performed by : [address] [address] Mucous, ur Present(A) MARY JANE Comment:Testing performed by : [address] [address] Culture Reflex Comment Reflex to urine culture will be performed. MARY JANE Comment:Testing performed by : [address] [address] Urine 10/25/2021 1:58 PM CDT 10/25/2021 2:02 PM CDT Marin MCKEON LAB URINE ORDERABLES Deann l Result Performing Organization Address [facility] de Phone Number [address] [address] * Streptococcus Group A PCR (10/25/2021 1:58 PM CDT) Strep A DNA Not Detected Not Detected MARY JANE PHAM Comment: This test is performed using the apartum Xpert Group A Streptococcal Assay. This is [...] by the performing laboratory. Testing performed by: [address] [address] Throat 10/25/2021 1:58 PM CDT 10/25/2021 2:12 PM CDT Marin MCKEON LAB MICROBIOLOGY - GENERA L ORDERABLES Final Result Performing Organization Address [facility] Co de Phone Number [facility] [address] [place] [address] * (ABNORMAL) Urinalysis reflex to microscopic and culture Urine (10/25/2021 1:58 PM CDT) Color, ur Yellow Yellow MARY JANE PHAM Comment:Testing performed by : [address] [address] Clarity, ur Cloudy(A) Clear MARY JANE PHAM Comment:Testing performed by : [address] [address] Specific gravity, ur 1.017 1.003 - 1.030 MARY JANE Comment:Testing performed by : [address] [address] pH, urine 6.0 MARY JANE Comment:Testing performed by : [address], [place]., [address] Protein, ur ql Negative Negative MARY JANE Comment:Testing performed by : [address] [address] Glucose, ur ql Negative Negative MARY JANE Comment:Testing performed by : [address], [place]., [address] Ketones, ur Negative Negative MARY JANE Comment:Testing performed by : [address] [address] Bilirubin, ur Negative Negative MARY JANE Comment:Testing performed by : [address], [place]., [address] Blood, ur 2+(A) Negative MARY JANE Comment:Testing performed by : [address], [place]., [address] Urobilinogen, ur <2.0 <2.0 mg/dL MARY JANE Comment:Testing performed by : [address] [address] Nitrite, ur Negative Negative MARY JANE Comment:Testing performed by : [address] [address] Leukocyte esterase, ur 4+(A) Negative MARY JANE Comment:Testing performed by : [address] [address] UA reflex comment Reflex to microscopic UA will be performed. MARY JANE Comment:Testing performed by : [address] [address] Urine 10/25/2021 1:58 PM CDT 10/25/2021 2:02 PM CDT Narrative MARY JANE - 10/25/2021 2:06 PM CDT ?? Urine pH is affected by diet, medications, systemic acid-base disturbances, and renal tubular function. ??pH may affect urinary stone formation. ??For example, urine pH below 6.0 may help reduce the tendency for calcium phosphate stones and pH greater than 6.0 may reduce the tendency for uric acid stone formation. Source: [facility] [employer]. Last revised 05-04-2017 Marin MCKEON LAB MICROBIOLOGY - GENERA L ORDERABLES Final Result Performing Organization Address [facility]/ZIP Co de Phone Number MARY JANE PHAM [facility] Department [place] [address] * (ABNORMAL) Urine culture Urine, clean voided (10/25/2021 1:57 PM CDT) Report Final Report: Greater than or equal to 100,000 colonies/mL of Escherichia coli Plus growth of clinically insignificant bacterial yesenia. (.) MARY JANE PHAM Comment:Testing performed by : [facility], [address] [place] [address] Organism ESCHERICHIA COLI MARY JANE PHAM Organism PLUS GROWTH OF CLINICALLY INSIGNIFICANT YESENIA. MARY JANE PHAM Urine, clean voided 10/25/2021 1:57 PM CDT 10/25/2021 6:01 PM CDT Narrative MARY JANE PHAM - 10/28/2021 11:28 AM CDT Urine currently in lab. Testing performed by [facility] Microbiology Laboratory ([phone]) Organism Antibiotic Method Susceptibility Escherichia coli Ampicillin INTERPRETATION Intermediate Escherichia coli Cefazolin INTERPRETATION Susceptible Escherichia coli Nitrofurantoin INTERPRETATION Susceptible Escherichia coli Gentamicin INTERPRETATION Susceptible Escherichia coli Trimethoprim with Sulfamethoxazole IN TERPRETATION Resistant Escherichia coli Meropenem INTERPRETATION Susceptible Escherichia coli Cefepime INTERPRETATION Susceptible Escherichia coli Ciprofloxacin INTERPRETATION Intermediate Escherichia coli Ceftazidime INTERPRETATION Susceptible Escherichia coli Ceftriaxone INTERPRETATION Susceptible Escherichia coli Piperacillin/Tazobactam INTERPRETATIO N Susceptible Escherichia coli Cephalexin INTERPRETATION Susceptible Escherichia coli Cefuroxime-axetil INTERPRETATION Susceptible Escherichia coli Cefdinir INTERPRETATION Susceptible Marin MCKEON LAB MICROBIOLOGY - GENERA L ORDERABLES Final Result Performing Organization Address City/[facility]/ZIP Co de Phone Number MARY JANE PHAM [address] Department [place] [address] documented in this encounter Visit Diagnoses Diagnosis Acute cystitis without hematuria- Primary documented in this encounter Administered Medications Inactive Administered Medications - up to 3 most recent administrations Medication Order MAR Action Action Date Dose Rate Site dexAMETHasone (DECADRON) preservative free solution 10 mg 10 mg, intravenous, Administer over 2 Minutes, Once, On Mon10/25/21 at 1710, For 1 dose Given 10/25/2021 5:13 PM CDT 10 mg fosfomycin (MONUROL) packet 3 g 3 g, oral, Once, On Mon10/25/21 at 1800, For 1 dose, Pour contents of packet into 3-4 oz of cool water, stir to dissolve and administer immediately., Indications: Urinary Tract/Genitourinary InfectionIndications:Urinary Tract/Genitourinary Infection Given 10/25/2021 5:57 PM CDT 3 g ibuprofen (ADVIL,MOTRIN) tablet 800 mg 800 mg, oral, Once, On Mon10/25/21 at 1710, For 1 dose, Do not crush, break, or open. Given 10/25/2021 5:13 PM CDT 800 mg documented in this encounter Active and Recently Administered Medications Times are shown in CDT. Scheduled Medication Order 10/23/2021 10/24/2021 10/25/2021 dexAMETHasone (DECADRON) preservative free solution 10 mg (COMPLETED) 10 mg, intravenous, Administer over 2 Minutes, Once, On Mon10/25/21 at 1710, For 1 dose 1712 (Given - Provid er: Cristiana Camp RN) fosfomycin (MONUROL) packet 3 g (COMPLETED) 3 g, oral, Once, On Mon10/25/21 at 1800, For 1 dose, Pour contents of packet into 3-4 oz of cool water, stir to dissolve and administer immediately., Indications: Urinary Tract/Genitourinary Infection 1756 (Given - Provid er: Anton Simpson RN) ibuprofen (ADVIL,MOTRIN) tablet 800 mg (COMPLETED) 800 mg, oral, Once, On Mon10/25/21 at 1710, For 1 dose, Do not crush, break, or open. 1712 (Given - Provid er: Cristiana Camp RN) documented in this encounter Orders IV Count Last Ordered Date First Orde red Date SALINE LOCK IV 1 10/25/2021 documented in this encounter Care Teams Rag Sorter And Cutter Relationship Specialty Start Date End Date Justen Gale MD [address] [facility] [address] [place] [address] PCP - General 10/09/17 Liu Jerez MD Consulting Physician Gastroenterology 07/28/17 [place] [address] [facility] [address] [place] [address] Consulting Physician Pulmonary Disease 08/03/17 Khris Arthur MD [address] [facility] [address] [place] [address] Medical Oncologist/Engraving Patternmaker Medical Oncology 10/23/17 [place] [id number] [facility] [address] [place] [address] Surgeon Orthopedic Surgery 10/23/17 [place] [id number] [facility] [address] [place] [address] Consulting Physician Pain Management 10/23/17 [place] [id number] [facility] [address] [place] [address] Referring Physician General Surgery 01/26/18 [place] [id number] [facility] [address] [place] [address] Consulting Physician Neurology 01/26/18 documented as of this encounter
--- OUTSIDE RECORDS SUMMARY | 2024-04-26 04:21 | XMS_ITS | Encounter Summary ---
Author Organization [facility] Healthcare Address [address] [place] [address] Care Team Providers Care Manager Domestic Name Role Phone Liu Jerez MD Unavailable Albert Corbin MD Unavailable Gerardo Hoffman MD Primary Care Provider [phone] Khris Arthur MD Unavailable [phone] Ko Melendez MD Unavailable John Paul Moyer MD Unavailable Annel Rod MD Unavailable Anali MARSHALL MD, Carlos M. Unavailable [phone] Reason for Visit * Reason Comments Muscle Pain * Auth/Cert Specialty Diagnoses / Procedures Referred By Elyssa t Referred To Contact Diagnoses 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) Procedures Referral ID Status Reason Start Date Expiration Date Visits Re quested Visits Authorized [id number] 1 1 Encounter Details Date Type Department Care Team (Latest Contact Info) Description 12/22/2021 10:47 PM CDT - 12/26/2021 3:15 PM CDT Hospital Encounter 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 Gender Identity Not on file Sexual Orientation Not on file documented as of this encounter Last Filed Vital Signs Vital Sign Reading Time Taken Comments Blood Pressure 135/85 12/26/2021 11:00 AM CDT Pulse 69 12/26/2021 11:00 AM CDT Temperature 36.7 ??C (98.1 ??F) 12/26/2021 1 1:00 AM CDT Respiratory Rate 18 12/26/2021 11:0 0 AM CDT Oxygen Saturation 97% 12/26/2021 11: 00 AM CDT Inhaled Oxygen Concentration - - Weight 133.7 kg (294 lb 12.8 oz) 12/23/2021 6:08 AM CDT Height 154.9 cm (5' 1 ) 12/23/2021 6:08 AM CDT Body Mass Index 55.7 12/23/2021 6:08 AM CDT documented in this encounter Discharge Summaries * Alfonso Kelsey MD - 12/26/2021 1:04 PM CDT Inpatient Discharge Summary Patient Name - Karly Marques Patient Age - 66 yrs Patient - [id number] [facility] - [id number] Document Creation Date: 12/26/2021 Admitting Provider, MD: Drew Calero MD Discharge Provider, MD: Alfonso Kelsey MD Primary Care Physician at Discharge: Gerardo Hoffman MD [phone] Admission Date: 12/22/2021 Discharge Date/time: 12/26/2021 Admission Location: [facility] LOS - LOS: 3 days DETAILS OF HOSPITAL STAY Hospital Problems/Diagnoses Principal Problem: 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) Active Problems: Essential hypertension History of DVT (deep vein thrombosis) History of pulmonary embolism Chronic anticoagulation Type 2 diabetes mellitus with neurologic complication, without long-term current use of insulin ([facility]) ([facility]) Dyslipidemia Reason for Hospitalization: Chills/Concern for UTI Hospital Course: Patient with history of chronic pain status post spinal cord stimulator complicated by hardware infection and subsequent removal admitted to [facility] with chief complaints of myalgias and malaise. Urine cultures growing E coli and Proteus species and the patient was started on ertapenem due to history of drug allergies. Completed 5 day course inpatient with improvement in symptoms. Discharge Details Physical Exam at Discharge: Discharge Condition: stable Pulse: 69 Resp: 18 BP: 135/85 Temp: 36.7 ??C (98.1 ??F) Weight: 133.7 kg (294 lb 12.8 oz) Pertinent Exam Findings at Discharge: General: Not in apparent distress, AAOx3 Heart: RRR, systolic murmur left 5th intercostal space mid axillary line Lungs: CTAB, non-labored on room air Abdomen: BS+, Soft, non-tender, non-distended Discharge Disposition: Discharge to home or self care Code Status at Discharge: Full Code Active Issues & Recommended Plan for Follow-up: Consider allergy/immunology follow up given history of drug reactions Allergies: Ceftriaxone, Ceftriaxone sodium, Cephalosporins, Lorazepam, Latex, Levofloxacin, Lisinopril, Piperacillin-tazobactam, Metoclopramide hcl, Reslizumab, Ketorolac, Metoclopramide, Oxycodone, Pregabalin, and Trazodone Discharge Medications: Your medication list CONTINUE taking these medications Instructions Last Dose Given Next Dose Due albuterol HFA 90 mcg/actuation inhaler Commonly known as: PROVENTIL HFA,VENTOLIN HFA,PROAIR HFA amitriptyline 25 mg tablet Commonly known as: ELAVIL BD Ultra-Fine Short Pen Needle 31 gauge x 5/16 needle Generic drug: pen needle, diabetic exemestane 25 mg tablet Commonly known as: AROMASIN Take 1 tablet (25 mg total) by mouth nightly HYDROcodone-acetaminophen 7.5-325 mg per tablet Commonly known as: NORCO lidocaine viscous 2 % solution Commonly known as: XYLOCAINE Take 5-10 mL by mouth every 4 (four) hours as needed (sorethroat) mupirocin 2 % ointment Commonly known as: BACTROBAN naloxone 4 mg/actuation spray,non-aerosol Commonly known as: NARCAN nystatin powder ondansetron 4 mg tablet Commonly known as: ZOFRAN Take 1 tablet (4 mg total) by mouth every 4 (four) hours as needed for nausea or vomiting OneTouch Ultra Test strip Generic drug: blood glucose diagnostic pantoprazole DR 40 mg EC tablet Commonly known as: PROTONIX Take 1 tablet (40 mg total) by mouth 2 (two) times a day rivaroxaban 20 mg tablet Commonly known as: Xarelto Take 1 tablet (20 mg total) by mouth daily rOPINIRole 5 mg tablet Commonly known as: REQUIP ASK your doctor about these medications Instructions Last Dose Given Next Dose Due insulin glargine 100 unit/mL vial for injection Commonly known as: LANTUS, SEMGLEE Inject 40 Units under the skin daily. Takes in the morning insulin lispro 100 unit/mL vial for injection Commonly known as: HumaLOG ADMELOG Inject 12 Units under the skin 3 (three) times a day before meals. oxybutynin 5 mg tablet Commonly known as: DITROPAN take 1 tablet by oral route every day Time Spent in Discharge Process: I have spent 35 minutes on discharge planning activities. Time spent was on chart review, Coordination of care, discharge exam, and parent/patient education Test Results Pending at Discharge (If Blank, None Found): Pending Labs Order Current Status Blood culture Blood Peripheral Preliminary result Blood culture Blood Peripheral Preliminary result Operative Procedures Performed (If Blank, None Found): Outpatient Follow-Up: Future Appointments Date Time Provider Department Center 03/08/2022 10:50 AM IM BONE TECH [facility] 03/08/2022 12:00 PM Khris Arthur MD ONC CAM[facility] On[facility] Contact Information for Follow-ups Gerardo Hoffman MD Specialty: Family Medicine Relationship: PCP - General [address] [address] Next Steps: Follow up Instructions: 1 week Questions: Instructions for follow-up (appointment date and time): 1 week To provider: GERARDO HOFFMAN Please schedule an appointment with the following provider(s): Gerardo Hoffman MD 2 [facility] [address] [place] [address] 1 week ANCILLARY INFORMATION Other Procedures & Diagnostic Tests: CT Abdomen Pelvis W Contrast Result Date: 12/23/2021 EXAM DESCRIPTION: CT ABDOMEN PELVIS W CONTRAST REASON FOR STUDY: UTI, recurrent/complicated c/o generalized body aches and chills that began last week but worsened this morning. She states everything hurts but her head and her feet, complains of generalized achy pain all over. She denies fever athome, but endorses chills and urinary frequency. Was recently admitted to [facility] and treated for urosepsis after having a UTI that was not treated and so the infection spread to her bone stimulator. Wastreated with IV ertapenem that was d/c'd last week. She feels like she did when she had sepsis. Shevomited x3 today and has not been able to hold anything down. She is generalized abdominal pain butno flank pain. She has not documented fever but feels fever out. Her infectious disease specialist said due to her recurrent UTI she will always need IV antibiotics. TECHNIQUE: CT scan of the abdomenand pelvis performed with intravenous and without oral contrast using helical scanning technique with dynamic intravenous contrast injection. Reconstructed coronal and sagittal MPR images reviewed. All images stored on PACS. Automated exposure control was used as a dose optimization technique for this examination. CONTRAST TYPE/DOSE: 100mL of IOVERSOL 350 MG IODINE/ML INTRAVENOUS SYRINGE injectedvia intravenous COMPARISON: 10/29/2021 FINDINGS: LOWER CHEST: Unchanged sub 5 mm pulmonary nodules in the left lower lobe compared to 10/29/2021. Recent guidelines by the Fleischner Society (Radiology 769687,2017) divides patient into low vs. high risk (for example, patients who smoke are considered high risk) and provides followup recommendations as follows: SOLITARY PULMONARY NODULE: Patients co nsidered LOW RISK for lung cancer and a nodule less than 6 mm in diameter require no follow-up. In patients at HIGHER RISK, for example smokers, optional follow-up is in 1 year. MULTIPLE PULMONARY NODULES: Patients considered LOW RISK for lung cancer and multiple nodules less than 6 mm in diameter require no follow-up. In patients at HIGHER RISK, for example smokers, optional follow-up is in 1 year. Note: These recommendations do not apply to lung cancer screening, patients with immunosuppression, or patients with known primary cancer. http://pubs.rsna.org/doi/pdf/10.1148/radiol.8905194870 LIVER: Normal size. No identified cystic or solid masses. GALLBLADDER: Surgically absent BILE DUCTS: No intrahepatic or extrahepatic ductal dilatation. SPLEEN: Normal size. No focal lesions. PANCREAS: No identified cystic or solid masses. No significant calcifications. No adjacent inflammation or peripancreatic fluid collections. Pancreatic duct not dilated. ADRENALS: Normal. KIDNEYS/URINARY TRACT: Kidneys enhance symmetrically. No suspicious renal lesions. No hydronephrosis. Urinary bladder is unremarkable. GI: Changes of prior ventral hernia repair is seen. Likely postsurgical changes/scarringin the subcutaneous tissues of the anterior abdominal wall are unchanged compared to prior examination. Likely injection granuloma in the right lower quadrant is seen. Stomach and small bowel are norm al in course and caliber without evidence of obstruction. Colonic diverticulosis without evidence of acute diverticulitis. Colonic interposition between the right anterior abdominal wall and liver isseen. The appendix is normal. Spinal stimulator device in the right posterior soft tissues is seen.PERITONEUM: No ascites or free air. RETROPERITONEUM: No mass or adenopathy. REPRODUCTIVE: No significant abnormality. VASCULATURE: No abdominal aortic aneurysm. MUSCULOSKELETAL: No significant acute abnormality. Multilevel degenerative disc disease of the lumbar spine. OTHER: No other abnormality. IMPRESSION: No acute finding. Postoperative and incidental findings as described above. REFERENCE: Un less otherwise specified, no follow-up imaging is recommended for incidental renal and adrenal lesions per consensus recommendations based on imaging criteria. Further lab evaluation could be pursuedbased on clinical findings. Management of the Incidental Renal Mass on CT: A White Paper of the ACR Incidental Findings Committee. J Am Wang Radiol. 2018 May;15(2):264-273. Management of Incidental Adrenal Masses: A White Paper of the ACR Incidental Findings Committee. J Am Wang Radiol. 2017 Nov;14(8):0362-9519. THIS IS AN ELECTRONICALLY VERIFIED FINAL REPORT 12/23/2021 2:21 AM - Electronically signed by Pb Carvalho M.D. BB: SKIP ReportID: [id number] Reading Location: [place] [address] Recent Labs: Recent Labs Lab Units 12/26/21 0401 12/25/21 0932 12/24/21 0326 WBC K/cumm 8.4 7.1 9.0 HEMOGLOBIN g/dL 11.6* 11.2* 11.5* HEMATOCRIT % 36.7 35.5* 35.8 PLATELETS K/cumm 275 251 265 Recent Labs Lab Units 12/26/21 0401 12/25/21 0932 12/24/21 0326 12/23/21 1044 12/22/21 1953 WBC K/cumm 8.4 7.1 9.0 8.2 10.0* HEMOGLOBIN g/dL 11.6* 11.2* 11.5* 11.8* 13.6 HEMATOCRIT % 36.7 35.5* 35.8 37.0 42.4 PLATELETS K/cumm 275 251 265 291 324 NEUTROS PCT % -- -- -- 63.2 59.8 LYMPHS PCT % -- -- -- 24.1 28.4 MONOS PCT % -- -- -- 8.5 7.8 EOS PCT % -- -- -- 3.7 3.2 Recent Labs Lab Units 12/26/21 1209 12/26/21 0835 12/26/21 0401 12/25/21 1156 12/25/21 0932 12/24/21 0748 12/24/2132512/23/21 12312/23/21 10412/23/2182412/22/212258 SODIUM mmol/L -- -- 137 -- 137 -- 137 -- 139 -- 140 POTASSIUM PLASMA mmol/L -- -- 4.0 -- 4.0 -- 4.0 -- 4.1 -- 4.3 CHLORIDE mmol/L -- -- 101 -- 102 -- 104 -- 104 -- 101 CO2 mmol/L -- -- 28 -- 27 -- 26 -- 27 -- 25 BUN SERUM mg/dL -- -- 13 -- 12 -- 14 -- 14 -- 16 CREATININE mg/dL -- -- 0.70 -- 0.70 -- 0.60 -- 0.60 -- 0.70 YZR-VTJ-VCPTSCC mL/min/1.73 m2 -- -- 96 -- 96 -- 100 -- 100 -- 96 GLUCOSE mg/dL -- -- 169 -- 158 -- 145 -- 153 -- 146 POC GLUCOSE MONITOR mg/dL 113 < > -- < > -- < > -- < > -- < > -- CALCIUM mg/dL -- -- 9.3 -- 9.3 -- 9.0 -- 9.3 -- 10.6* ALBUMIN g/dL -- -- -- -- -- -- -- -- 3.7 -- 4.3 PHOSPHORUS PLASMA mg/dL -- -- -- -- -- -- -- -- 3.4 -- -- < > = values in this interval not displayed. Recent Labs Lab Units 12/26/21 1209 12/26/21 0835 12/26/21 0401 12/25/21 1156 12/25/21 0932 12/24/21 0748 12/24/2132512/23/21 12312/23/21 10412/23/2182412/22/212258 SODIUM mmol/L -- -- 137 -- 137 -- 137 -- 139 -- 140 POTASSIUM PLASMA mmol/L -- -- 4.0 -- 4.0 -- 4.0 -- 4.1 -- 4.3 CHLORIDE mmol/L -- -- 101 -- 102 -- 104 -- 104 -- 101 CO2 mmol/L -- -- 28 -- 27 -- 26 -- 27 -- 25 ANIONGAP mmol/L -- -- 8 -- 8 -- 7 -- 8 -- 14 GLUCOSE mg/dL -- -- 169 -- 158 -- 145 -- 153 -- 146 POC GLUCOSE MONITOR mg/dL 113 153 -- < > -- < > -- < > -- < > -- BUN SERUM mg/dL -- -- 13 -- 12 -- 14 -- 14 -- 16 CREATININE mg/dL -- -- 0.70 -- 0.70 -- 0.60 -- 0.60 -- 0.70 CALCIUM mg/dL -- -- 9.3 -- 9.3 -- 9.0 -- 9.3 -- 10.6* ALBUMIN g/dL -- -- -- -- -- -- -- -- 3.7 -- 4.3 ALK PHOS Units/L -- -- -- -- -- -- -- -- 85 -- 94 ALT Units/L -- -- -- -- -- -- -- -- 15 -- 17 AST Units/L -- -- -- -- -- -- -- -- 19 -- 19 BILIRUBIN TOTAL mg/dL -- -- -- -- -- -- -- -- 0.5 -- 0.4 < > = values in this interval not displayed. Recent Labs Lab Units 12/23/21 1044 12/22/21 2259 ALK PHOS Units/L 85 94 BILIRUBIN TOTAL mg/dL 0.5 0.4 TOTAL PROTEIN g/dL 7.6 9.2* ALT Units/L 15 17 AST Units/L 19 19 Recent Labs Lab Units 12/23/21 1044 MAGNESIUM mg/dL 1.7 Lab Results Component Value Date GLUCOSE 113 12/26/2021 GLUCOSE 153 12/26/2021 GLUCOSE 169 12/26/2021 Implant: Implants No active implants to display in this view. General Precautions (If Blank, None Found): Isolation Status: No active isolations Nutritional Status and in-house recommendations: Dietary Orders (From admission, onward) Start Ordered 12/23/21 2100 Bedtime snack At bedtime Comments: If bedtime BG is less than 100mg/dl, give patient a 15 gram carbohydrate snack. 12/23/21 0733 12/23/21 0735 Adult Diet Restricted; Cardiac (Low Na, Low Chol); 4 CHO/Meal; Yes, patient is receiving insulin Diet effective now Question Answer Comment (MHB/MHE/FPC) Diet type Restricted Fat / Sodium Restriction: Cardiac (Low Na, Low Chol) Diabetic: 4 CHO/Meal Patient receiving insulin: Yes, patient is receiving insulin 12/23/21 0734 Anticoagulation Indication: INR: No results found for requested labs within last 720 hours. Warfarin Administrations (last 168 hours) None Oxygen Status: O2 Therapy for the past 12 hrs: O2 Therapy 12/26/21 1100 None (Room air) 12/26/21 0700 None (Room air) 12/26/21 0417 None (Room air) Wound Care Instructions Other Instructions Call provider for: Temperature -Temperature greater than 101 degrees F Call provider for: difficulty breathing or chest pain Call provider for: extreme fatigue Call provider for: hives Call provider for: persistent dizziness or light-headedness Call provider for: persistent nausea or vomiting Call provider for: severe uncontrolled pain Call provider for: headache, visual disturbances, weakness and speech changes Active LDAs (If Blank, None Found): Peripheral IV 12/23/21 20 G Right Arm (Active) Placement Date/Time: 12/23/21 003 Type: Angiocath Size (Gauge): 20 G Location Orientation: Right Location: Arm Site Prep: Alcohol Technique: Ultrasound guidance Inserted by: Jayson Du RN Patient Emergency Contact: Primary Emergency Contact: Jimmie Marques, Immunization Status at Discharge Immunization History Administered Date(s) Administered Influenza, Quadrivalent, Split, Intramuscular 02/11/2015, 02/06/2017 Influenza, Quadrivalent, Split, Preservative Free, Intramuscular 02/14/2017, 01/24/2018, 02/25/2019, 01/18/2020, 05/04/2021 Influenza, Trivalent, Intramuscular 05/07/2013, 03/07/2014, 01/23/2016, 02/03/2020 Influenza, Unspecified 05/07/2013, 03/07/2014, 01/23/2016 [employer] ([employer]) SARS-CoV-2 Vaccination 06/29/2020 Tdap 02/23/2016 Alfonso Kelsey MD documented in this encounter Discharge Instructions * Attachments The following attachments cannot be sent through Care Everywhere. * Urinary Tract Infection in Women (Discharge Care) (British) documented in this encounter Medications at Time of Discharge albuterol HFA (PROVENTIL HFA,VENTOLIN HFA,PROAIR HFA) 90 mcg/actuation inhaler Inhale 2 puffs every 6 (six) hours as needed for wheezing or shortness of breath 1 BD Ultra-Fine Short Pen Needle 31 gauge x 5/16 needle USE 6 TIMES DAILY DIRECTED 2 blood glucose diagnostic (RestoriusTouch Ultra Test) strip 4 (four) times a [...] in this encounter Progress Notes * Bianca Simons, OTHER WOOD PROCESSING MACHINE OPERATOR - 12/26/2021 8:15 AM CDT Physical Therapy 12/26/21 0815 PT Last Visit Session Type Treatment Safe Environment Arm Band Checked Precautions Precautions Fall risk Pain Assessment Shi-Mendez FACES Pain Rating 2 Cognition Arousal/Alertness Alert Orientation Oriented X4 (person, place, time, situation) Bed Mobility 1 Bed Mobility From 1 Supine Bed Mobility Type 1 To Bed Mobility to 1 Edge of bed Level of Assistance 1 Standby Assist Transfer 1 Transfer From 1 Sit Transfer Type 1 To and from Transfer to 1 Stand Technique 1 Sit to stand Transfer Device 1 Wheeled walker Transfer Level of Assistance 1 Contact Guard Assist Ambulation 1 Distance (ft) 1 40ft Surface 1 Level tile Device 1 Wheeled walker Assistance 1 Contact Guard Assist Ambulation Comments 1 Pt ambulates within her room Recommendation/Plan PT Recommendation/Plan Home with caregiver;Home with family Multi-Disciplinary Problems (from Physical Therapy) Active Problems Problem: PT Misc Start Date: 12/24/21 Goal Start Date Expected End Date End Date PT LTG - [facility] 1 12/24/21 01/07/22 -- Goal Details: 1) Supine<>Sit independent 2) Sit<>Stand with wheeled walker, modified independent 3) Pt will ambulate 250 feet with wheeled walker, modified independent 4) Pt will ascend/descend two stairs with cane, modified independent Pt is progressing towards goals Educated the patient to the role of physical therapy, plan of care, goals of therapy, rationale forprogressing mobility and home exercise program. Patient was left in chair with all needs met and equipment intact. Safety measures include chair alarm activated, oriented to call light and placed within reach, personal items within reach, and bed placed in lowest position. Mobility and ADL status posted at bedside and within medical record. * Alfonso Kelsey MD - 12/25/2021 6:25 PM CDT General Medicine Daily Progress SUBJECTIVE Patient with history of chronic pain status post spinal cord stimulator complicated by hardware infection status post removal, history of venous thromboembolism on rivaroxaban, type 2 diabetes admitted to [facility] with chief complaints of myalgias and malaise. Urine cultures growing E coli and Proteus species and the patient was started on ertapenem. Afebrile Lab stable Patient feels overall improved today. Still has some residual pain but this is improving OBJECTIVE Vitals: 24hr Min/Max: Temp Min: 36.4 ??C (97.6 ??F) Max: 36.7 ??C (98.1 ??F) Pulse Min: 71 Max: 78 BP Min: 110/72 Max: 145/79 Resp Min: 16 Max: 18 SpO2 Min: 96 % Max: 98 % Most Recent : Vitals: 12/25/21 1500 BP: 132/81 Pulse: 78 Resp: 18 Temp: 36.6 ??C (97.8 ??F) SpO2: 98% I/O last 2 completed shifts: In: 1130 [P.O.:1120; I.V.:10] Out: 1100 [Urine:1100] I/O this shift: In: 800 [P.O.:800] Out: - Physical Exam: General: Not in apparent distress, AAOx3 Neck: Supple, normal range of motion, no cervical spinal tenderness Head: Normocephalic, atraumatic Heart: RRR, systolic murmur left 5th intercostal space mid axillary line Lungs: CTAB, non-labored on room air Abdomen: BS+, Soft, non-tender, non-distended Skin: no rashes or lesions Neuro: CN II-XII grossly intact, moving all 4 extremities spontaneously Lab/Current Medication Review: Recent Results (from the past 24 hour(s)) POCT glucose Collection Time: 12/24/21 7:37 PM Result Value Ref Range Glucose, POC 137 70 - 199 mg/dL Glucose comment 1 Use This Result POCT glucose Collection Time: 12/25/21 7:08 AM Result Value Ref Range Glucose, POC 153 70 - 199 mg/dL Basic metabolic panel Collection Time: 12/25/21 9:32 AM Result Value Ref Range Sodium 137 135 - 145 mmol/L Potassium, pl 4.0 3.3 - 4.9 mmol/L Chloride 102 97 - 110 mmol/L CO2 27 22 - 32 mmol/L Anion gap 8 2 - 15 mmol/L BUN 12 8 - 25 mg/dL Creatinine 0.70 0.60 - 1.10 mg/dL Glucose 158 70 - 199 mg/dL Calcium 9.3 8.5 - 10.3 mg/dL CBC without differential Collection Time: 12/25/21 9:32 AM Result Value Ref Range WBC 7.1 3.8 - 9.9 K/cumm Hgb 11.2 (L) 11.9 - 15.5 g/dL Hct 35.5 (L) 35.6 - 45.5 % Plt 251 150 - 400 K/cumm MPV 10.0 9.1 - 12.3 fL RBC 3.85 (L) 3.90 - 5.20 M/cumm MCV 92.2 81.3 - 96.4 fL MCH 29.1 27.1 - 33.3 pg MCHC 31.5 (L) 32.3 - 35.7 g/dL RDW CV 13.4 11.1 - 14.9 % RDW SD 46.1 35.7 - 48.1 fL NRBC abs 0.00 0.00 - 0.01 K/cumm Creatine kinase (CK), total Collection Time: 12/25/21 9:32 AM Result Value Ref Range CK 78 30 - 200 Units/L eGFR Collection Time: 12/25/21 9:32 AM Result Value Ref Range eGFR 96 mL/min/1.73 m2 POCT glucose Collection Time: 12/25/21 11:56 AM Result Value Ref Range Glucose, POC 134 70 - 199 mg/dL Current Facility-Administered Medications Medication Dose Route Frequency Provider Last Rate Last Admin acetaminophen (TYLENOL) tablet 650 mg 650 mg oral Q4H PRN Melly Mireles, HUMAN RESOURCES RECORDS CLERK 650 mg at amitriptyline (ELAVIL) tablet 25 mg 25 mg oral Nightly Melly Mireles, HUMAN RESOURCES RECORDS CLERK 25 mg at 12/24/212054 bisacodyL (DULCOLAX) suppository 10 mg 10 mg rectal Daily PRN Alfonso Kelsey MD bisacodyl EC (DULCOLAX EC) tablet 10 mg 10 mg oral Daily PRN Alfonso Kelsey MD sodium chloride 0.9% flush 0.5-20 mL 0.5-20 mL intra-catheter Q8H RODERICK Melly Mireles., HUMAN RESOURCES RECORDS CLERK 10 mL at 12/25/21 1501 And sodium chloride 0.9% flush 0.5-20 mL 0.5-20 mL intra-catheter PRN Melly Mireles NP And Carrier Fluids for Secondary Infusion - 0.9% Sodium Chloride 30 mL intravenous PRN Melly Mireles, HUMAN RESOURCES RECORDS CLERK dextrose gel in packet 15 g 15 g oral Q15 Min PRN Alfonso Kelsey MD Or dextrose (D10W) 10% bolus 250 mL 250 mL intravenous Q15 Min PRN Alfonso Kelsey MD ertapenem (INVanz) 1,000 mg in sodium chloride 0.9% 100 mL IVPB 1,000 mg intravenous Q24H Alfonso Kelsey MD 200 mL/hr at 12/25/21 0831 1,000 mg at 12/25/21 0831 glucagon injection 1 mg 1 mg intramuscular Q30 Min PRN Alfonso Kelsey MD HYDROcodone-acetaminophen (NORCO) 7.5-325 mg per tablet 1 tablet 1 tablet oral Q6H PRN Alfonso Kelsey MD 1 tablet at 12/25/21 1500 insulin glargine (LANTUS, SEMGLEE) 100 unit/mL injection 20 Units 0.15 Units/kg subcutaneous Nightly Alfonso Kelsey MD 20 Units at 12/24/21 205 insulin lispro (HumaLOG, ADMELOG) 100 unit/mL injection 0-4 Units 0-4 Units subcutaneous Nightly Alfonso Kelsey MD insulin lispro (HumaLOG, ADMELOG) 100 unit/mL injection 0-5 Units 0-5 Units subcutaneous TID with meals Alfonso Kelsey MD 1 Units at 12/25/21 0802 insulin lispro (HumaLOG, ADMELOG) 100 unit/mL injection 7 Units 0.05 Units/kg subcutaneous TID withmeals Alfonso Kelsey MD 7 Units at 12/25/21 1812 lidocaine viscous (XYLOCAINE) 2 % solution 5-10 mL 5-10 mL oral Q4H PRN Melly Mireles, HUMAN RESOURCES RECORDS CLERK ondansetron ODT (ZOFRAN-ODT) disintegrating tablet 4 mg 4 mg oral Q6H PRN Melly Mireles, HUMAN RESOURCES RECORDS CLERK Or ondansetron (ZOFRAN) injection 4 mg 4 mg intravenous Q6H PRN Melly Mireles, HUMAN RESOURCES RECORDS CLERK 4 mg at 12/25/21 0801 oxybutynin (DITROPAN) tablet 5 mg 5 mg oral BID Melly Mireles, HUMAN RESOURCES RECORDS CLERK 5 mg at 12/25/[address] (PROTONIX) extended release tablet 40 mg 40 mg oral BID Melly Mireles, HUMAN RESOURCES RECORDS CLERK 40 mg at 12/25/21 0805 polyethylene glycol (MIRALAX) packet 17 g 17 g oral Daily PRN Alfonso Kelsey MD ramelteon (ROZEREM) tablet 8 mg 8 mg oral Nightly PRN Alfonso Kelsey MD rivaroxaban (XARELTO) tablet 20 mg 20 mg oral Daily Mireles, Melly G., HUMAN RESOURCES RECORDS CLERK 20 mg at 12/25/21804 rOPINIRole (REQUIP) tablet 5 mg 5 mg oral Nightly MirelesCaesarMelly G., HUMAN RESOURCES RECORDS CLERK 5 mg at 12/24/212054 A/P: Principal Problem: 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) Active Problems: Essential hypertension History of DVT (deep vein thrombosis) History of pulmonary embolism Chronic anticoagulation Type 2 diabetes mellitus with neurologic complication, without long-term current use of insulin ([facility] ([facility]) Dyslipidemia Resolved Problems: No resolved hospital problems. Malaise/Body Aches/Possible UTI - blood cultures negative to date - urine cultures growing E coli and Proteus near pansensitive - continue ertapenem due to prior cultures growing ecoli with cephalosporin allergies (day 4) - anticipate 5 day course of antibiotics - monitor white count and temp - check CK level within normal limits - unclear etiology of myalgias overall - cervical pathology is in the differential though favored to be less likely Type 2 Diabetes - basal bolus insulin with SSI - monitor accuchecks - euglycemic on current regimen History of DVT/PE - continue rivaroxaban Chronic Pain Morbid Obesity LUL - cpap Medical complexity/risk: Moderate Voice recognition software MModal Fluency Direct may have been used dictate and transcribe this document. Chemist Assistant variances may occur. Despite proofreading, typographical errors may occur. Alfonso Kelsey MD 12/25/2021 6:25 PM * Bull Hurt, OTHER WOOD PROCESSING MACHINE OPERATOR - 12/25/2021 10:10 AM CDT Physical Therapy 12/25/21 1010 PT Last Visit Session Type Treatment PT Received On 12/25/21 Safe Environment Arm Band Checked;Patient found in Supine;Overbed Table within Reach;Bed in Lowest Position with Wheels locked;Bed rails up per protocol Subjective Agreeable to Therapy Precautions Precautions Fall risk Pain Assessment Pain Assessment 0-10 Pain Score 6 Pain Location (all over body) Pain Orientation Generalized Cognition Orientation Oriented X4 (person, place, time, situation) Bed Mobility 1 Bed Mobility From 1 Supine Bed Mobility Type 1 To Bed Mobility to 1 Edge of bed Level of Assistance 1 Standby Assist Transfer 1 Transfer From 1 Bed Transfer Type 1 To and from Transfer to 1 Sit Technique 1 Sit to stand;Stand to sit Transfer Device 1 Wheeled walker Transfer Level of Assistance 1 Contact Guard Assist Ambulation 1 Distance (ft) 1 12ft,20ft Surface 1 Level tile Device 1 Wheeled walker Assistance 1 Standby Assist Ambulation Comments 1 Patient walked to bathroom then ambulated in room prior to getting back into bed. Assessment Prognosis Good Plan Plan Continue with current plan Recommendation/Plan Progress Improving as expected Multi-Disciplinary Problems (from Physical Therapy) Active Problems Problem: PT Misc Start Date: 12/24/21 Goal Start Date Expected End Date End Date PT LTG - [facility] 1 12/24/21 01/07/22 -- Goal Details: 1) Supine<>Sit independent 2) Sit<>Stand with wheeled walker, modified independent 3) Pt will ambulate 250 feet with wheeled walker, modified independent 4) Pt will ascend/descend two stairs with cane, modified independent Working toward goals set. Educated the patient to the role of physical therapy, plan of care, goals of therapy, rationale forprogressing mobility and home safety. Patient was left in bed with all needs met and equipment intact. Safety measures include oriented to call light and placed within reach, personal items within reach, and bed placed in lowest position. Mobility and ADL status posted at bedside and within medical record. * Riccardo Caba OT - 12/24/2021 8:46 AM CDT Occupational Therapy 12/24/21 0846 General Chart Reviewed Yes Session Type Evaluation OT Received On 12/24/21 Safe Environment Call Light within Reach;Notified RN Additional Pertinent History 66 yo female with complicated UTI. PMHx significant for frequent UTIs and kidney stones, HTN, OA, obesity, breast CA, DM, RLS, depression/anxiety, hx of DVT, readmissions Occupational Therapy-Patient Goal wants to recover toward her PLOF before decline starting in August. Current Functional Status OT Functional Mobility MIN assist for functional mobility with ww, slow walking speed indicative ofincreased fall risk. Pt with pain, instability, decreased tolerance for functional mobility limitedof room distances with RPE >5/10. Precautions Precautions Fall risk Home Living Type of Home House Home Layout One level Home Access Stairs to enter without rails Entrance Stairs-Rails None Entrance Stairs-Number of Steps 2 Bathroom Shower/Tub Tub/shower unit Bathroom Equipment Grab bars in shower/tub;Shower chair Bathroom Accessibility Accessible Home Mobility Equipment Wheeled walker;Single point cane Prior Function Level of [place] Independent functional transfers;Independent with ambulation;Needs assistancewith homemaking;Independent with ADLs Lives With Daughter Receives Help From Family (daughter is paid caregiver, available during day) Driving Yes Mode of Transportation (not driving often recently, ind prior to August) Vocational/Occupation On disability Fall within the last 6 months No Prior Function Comments Prior to August, Pt able to toilet, dress, manage light IADLs with use of walker, modified ind. Pt recently has required increased assist for LB ADLs, all IADLs. LE Dressing LE Dressing: Assistance with Don/doff R sock;Don/doff L sock;Thread RLE into underwear;Thread LLE into underwear;Pull up over hips LE Dressing: Level of assistance Moderate Assist Toileting Toileting: Where assessed Bedside Commode Toileting: Level of assistance Contact Guard Assist Functional Transfers Functional Transfer: Level of assistance Contact Guard Assist Functional Transfer: Assistance with Bedside commode transfer Pain Assessment Shi-Mendez FACES Pain Rating 4 Pain Score 2 Pain Type Acute pain Pain Location Generalized (increased in buttock through thighs, and arms with WB on ww) Activity Tolerance Endurance Tolerates 10 - 20 min activity with multiple rests Activity Tolerance Comments decreased from evaluation in July. VSS but increased pain, difficulty tolerating all standing ADLs. Cognition Cognition Comments Appears WFL. Pt with good recall of timelines, good insight. Orientation Oriented X4 (person, place, time, situation) Compliance/Behavior Easy to engage Bed Mobility 1 Bed Mobility From 1 Supine Bed Mobility Type 1 To Bed Mobility to 1 Edge of bed Level of Assistance 1 Minimum Assist Bed Mobility Comments 1 assisted for trunk elevation, scooting Transfer 1 Transfer From 1 Sit Transfer Type 1 To and from Transfer to 1 Stand Transfer Device 1 Wheeled walker Transfer Level of Assistance 1 Minimum Assist;Minimal verbal cues Trials/Comments 1 increased time, increased exertion, pain. RUE Assessment RUE Assessment (MMT 4-/5 grossly for SH, ELB) LUE Assessment LUE Assessment (MMT 4-/5, grossly for SH and ELB) Assessment Prognosis Good Problem List Decreased endurance;Decreased functional mobility;Decreased ADL independence;DecreasedIADL independence;Pain Problem List Comments Pt with recent ongoing decline from sepsis in August, and new complicated UTI impacting ADL independence. Pt limited currently limited by pain, decreased activity tolerance, generalized weakness. She will benefit from skilled OT to progress ADLs toward PLOF. Barriers to Discharge Current Mobility Status;Decreased caregiver support Plan Plan Plan of care initiated Recommendation/Plan OT Recommendation (S) Inpatient Rehab Facility Patient at high risk for Falls;Readmission;Injury due to decreased ability to care for self;Injury due to reduced functional status;Injury at home as patient has not returned to prior level of function Recommend Inpatient Rehab/Acute Rehab due to Requires greater than 25% physical assistance with most ADL tasks;Highly motivated to participate in therapy;Not at baseline due to impaired ability to complete ADLs;Impaired ability to complete functional mobility;Likely to return to the community at discharge with support system in place OT Frequency 3-5x/wk Treatment/Interventions ADL/IADL retraining;Balance Training;Bed mobility;Compensatory technique education;Endurance training;Equipment eval/education;Functional activity;Functional mobility training;Functional transfer training;Therapeutic exercise;Therapeutic activity;Strengthening OT - Next Appointment 01/07/22 OT Evaluation Complete Yes Multi-Disciplinary Problems (from Occupational Therapy) Active Problems Problem: OT [facility] Start Date: 12/24/21 Goal Start Date Expected End Date End Date OT [facility] - [facility] 1 12/24/21 01/07/22 -- Goal Details: 1) VERBALIZE UNDERSTANDING EC/WS TECHS FOR ADL/IADL. Goal Start Date Expected End Date End Date OT [facility] - [facility] 2 12/24/21 01/07/22 -- Goal Details: 2) DEMO INDEP WITH UE HEP TO IMPROVE ENDURANCE FOR ADL/MOBILITY. Goal Start Date Expected End Date End Date OT [facility] - [facility] 3 12/24/21 01/07/22 -- Goal Details: 3) COMPLETE DYNAMIC BALANCE ACTIVITY/ITEM RETRIEVAL (4/4 items) IN ROOM WITH GOOD BALANCE/SAFETY. Goal Start Date Expected End Date End Date OT LTG - [facility] 4 12/24/21 01/07/22 -- Goal Details: 4) DEMO INDEP WITH LE ADL SBA WITH USE OF AE PRN. Goal Start Date Expected End Date End Date OT LT - [facility] 5 12/24/21 01/07/22 -- Goal Details: COMPLETE ALL ASPECTS TOILETING WITH MODIFIED IND WITH SAFE WW TECHNIQUE, RPE <4/10. Educated the patient to the role of occupational therapy, plan of care, goals of therapy, rationalefor progressing mobility/ADLs, safe transfer technique with hand placement, discharge recommendation for rehab to progress toward PLOF. RN notified of session outcome. Patient was left in chair with all needs met and equipment intact. Safety measures include oriented to call light and placed within reach and personal items within reach. Mobility and ADL status posted at bedside and within medical record. * Da Dobbins, PT - 12/24/2021 8:45 AM CDT Physical Therapy 12/24/21 0845 General Chart Reviewed Yes Session Type Evaluation PT Received On 12/24/21 Safe Environment Arm Band Checked;Call Light within Reach;Notified RN;Session Completed Bedside;Patient found in Supine;Overbed Table within Reach;Bed in Lowest Position with Wheels locked Subjective Agreeable to Therapy Additional Pertinent History Pt admitted with complicated UTI. hx includes: UTI, recent spinal cordstimulator infection, morbid obesity, DVT Family/Caregiver Present No Physical Therapy-Patient Goal I need to get stronger before going home Precautions Precautions Fall risk Home Living Type of Home House Home Layout One level Home Access Stairs to enter without rails Entrance Stairs-Number of Steps 2 Home Mobility Equipment Wheeled walker;Single point cane Additional Comments Pt reports that she lives in a single story home with two steps to enter. Pt has a wheeled walker and a cane at home Prior Function Level of [place] Independent with ADLs;Independent functional transfers;Independent with ambulation Lives With Daughter (Daughter is also pt's caregiver) Receives Help From Family Driving Yes Mode of Transportation Car;Driven by self;Driven by others Fall within the last 6 months No Prior Function Comments Pt reports that she was independent with functional mobility with either a wheeled walker or a single point cane. Pt's daughter is pt's caregiver and lives with patient Pain Assessment Pain Assessment 0-10 Pain Score 2 Patient's Stated Pain Goal No pain Pain Type Chronic pain Pain Location Generalized Pain Orientation Generalized Cognition Arousal/Alertness Alert Attention Span Appears intact Memory Appears intact Current communication Appears Intact Orientation Oriented X4 (person, place, time, situation) Following Commands Follows all commands and directions without difficulty Safety Judgment Good awareness of safety precautions Awareness of Errors Good awareness of errors made Bed Mobility 1 Bed Mobility From 1 Supine Bed Mobility Type 1 To Bed Mobility to 1 Edge of bed Level of Assistance 1 Minimum Assist Bed Mobility Comments 1 with assist for trunk elevation and for scooting forward to edge of bed in preparation of standing. Transfer 1 Transfer From 1 Sit Transfer Type 1 To and from Transfer to 1 Stand Technique 1 Sit to stand;Stand to sit Transfer Device 1 Wheeled walker Transfer Level of Assistance 1 Minimum Assist Trials/Comments 1 Pt requires extra time to come to standing. Verbal cues for hand placement when using walker in standing and returning to sitting Ambulation 1 Distance (ft) 1 15 ft x 2 Surface 1 Level tile Device 1 Wheeled walker Assistance 1 Minimum Assist Gait: Requires assist with 1 Maintaining balance Gait: Requires verbal cues to 1 Use assistive device safely;Follow precautions/weight bearing status;Utilize appropriate gait sequencing;Improve upright posture Ambulation Comments 1 Pt walks with guraded gait, decreased step length, decreased andra. Pt required one seat rest break between bouts of ambulation due to fatigue. RLE Assessment RLE Assessment X (grossly graded 4/5) LLE Assessment LLE Assessment X (grossly graded 4/5) Assessment Prognosis Good Problem List Gait deviations;Decreased strength;Decreased endurance;Impaired balance;Decreased mobility;Pain;Obesity Barriers to Discharge Current Mobility Status;Decreased caregiver support Plan Plan Plan of care initiated;If this is the last note, consider this the discharge summary Recommendation/Plan PT Recommendation/Plan (S) Inpatient Rehab Facility Patient at high risk for Falls;Readmission Recommend Inpatient Rehab/Acute Rehab due to Ability to actively participate in intensive therapy 3hours/day, 5 days/week or 900 minutes per week;Highly motivated to participate in therapy;Not at baseline due to impaired ability to complete ADLs;Likely to return to the community at discharge with support system in place;Requires greater than 25% physical assistance with most mobility tasks;Requires multiple therapy disciplines to address functional deficits PT Frequency 5-7x/wk (1-2x/day) Treatment/Interventions Balance Training;Bed mobility;Endurance training;Functional activity;Functional transfer training;Gait training;Parent/caregiver training and education;Range of motion;Stair tr aining;Strengthening;Therapeutic activity;Therapeutic exercise;Transfer training PT Equipment Recommended (pt has wheeled walker and cane at home) PT - Next Appointment 01/07/22 PT Evaluation Complete Yes Multi-Disciplinary Problems (from Physical Therapy) Active Problems Problem: PT Misc Start Date: 12/24/21 Goal Start Date Expected End Date End Date PT LTG - [facility] 1 12/24/21 01/07/22 -- Goal Details: 1) Supine<>Sit independent 2) Sit<>Stand with wheeled walker, modified independent 3) Pt will ambulate 250 feet with wheeled walker, modified independent 4) Pt will ascend/descend two stairs with cane, modified independent Educated the patient to the role of physical therapy, plan of care, goals of therapy, rationale forprogressing mobility and home safety. Patient was left in sitting in chair with all needs met and equipment intact. Safety measures include oriented to call light and placed within reach and personal items within reach. Mobility and ADL status posted within medical record. * Alfonso Kelsey MD - 12/24/2021 7:39 AM CDT General Medicine Daily Progress SUBJECTIVE Patient with history of chronic pain status post spinal cord stimulator complicated by hardware infection status post removal, history of venous thromboembolism on rivaroxaban, type 2 diabetes admitted to [facility] with chief complaints of myalgias and malaise. Concern for possible urinary infection. Room air Afebrile Pulse 70s to 80s Creatinine stable No leukocytosis CRP 15.5 (2.8 2 weeks ago) ESR 64 (59 2 weeks ago) Urine culture growing 2 species of Gram-negative bacilli - sensitivities and susceptibilities pending Blood cultures negative to date Patient reports feeling a little better. Appetite mildly improved. Still having diffuse muscle cramping. No urinary symptoms. OBJECTIVE Vitals: 24hr Min/Max: Temp Min: 36.6 ??C (97.8 ??F) Max: 36.8 ??C (98.2 ??F) Pulse Min: 78 Max: 91 BP Min: 114/76 Max: 135/88 Resp Min: 18 Max: 20 SpO2 Min: 93 % Max: 99 % Most Recent : Vitals: 12/24/21 1500 BP: 135/88 Pulse: 91 Resp: 18 Temp: 36.6 ??C (97.8 ??F) SpO2: 98% I/O last 2 completed shifts: In: 2540 [P.O.:1540; I.V.:1000] Out: - No intake/output data recorded. Physical Exam: General: Not in apparent distress, AAOx3 Neck: Supple, normal range of motion, no cervical spinal tenderness Head: Normocephalic, atraumatic Heart: RRR, systolic murmur left 5th intercostal space mid axillary line Lungs: CTAB, non-labored on room air Abdomen: BS+, Soft, non-tender, non-distended Skin: no rashes or lesions Neuro: CN II-XII grossly intact, moving all 4 extremities spontaneously Lab/Current Medication Review: Recent Results (from the past 24 hour(s)) Basic metabolic panel Collection Time: 12/24/21 3:26 AM Result Value Ref Range Sodium 137 135 - 145 mmol/L Potassium, pl 4.0 3.3 - 4.9 mmol/L Chloride 104 97 - 110 mmol/L CO2 26 22 - 32 mmol/L Anion gap 7 2 - 15 mmol/L BUN 14 8 - 25 mg/dL Creatinine 0.60 0.60 - 1.10 mg/dL Glucose 145 70 - 199 mg/dL Calcium 9.0 8.5 - 10.3 mg/dL CBC without differential Collection Time: 12/24/21 3:26 AM Result Value Ref Range WBC 9.0 3.8 - 9.9 K/cumm Hgb 11.5 (L) 11.9 - 15.5 g/dL Hct 35.8 35.6 - 45.5 % Plt 265 150 - 400 K/cumm MPV 9.7 9.1 - 12.3 fL RBC 3.93 3.90 - 5.20 M/cumm MCV 91.1 81.3 - 96.4 fL MCH 29.3 27.1 - 33.3 pg MCHC 32.1 (L) 32.3 - 35.7 g/dL RDW CV 13.4 11.1 - 14.9 % RDW SD 45.0 35.7 - 48.1 fL NRBC abs 0.00 0.00 - 0.01 K/cumm eGFR Collection Time: 12/24/21 3:26 AM Result Value Ref Range eGFR 100 mL/min/1.73 m2 POCT glucose Collection Time: 12/24/21 7:48 AM Result Value Ref Range Glucose, POC 108 70 - 199 mg/dL Glucose comment 1 Use This Result POCT glucose Collection Time: 12/24/21 12:14 PM Result Value Ref Range Glucose, POC 103 70 - 199 mg/dL Glucose comment 1 Use This Result POCT glucose Collection Time: 12/24/21 4:36 PM Result Value Ref Range Glucose, POC 160 70 - 199 mg/dL Glucose comment 1 Use This Result POCT glucose Collection Time: 12/24/21 7:37 PM Result Value Ref Range Glucose, POC 137 70 - 199 mg/dL Glucose comment 1 Use This Result Current Facility-Administered Medications Medication Dose Route Frequency Provider Last Rate Last Admin acetaminophen (TYLENOL) tablet 650 mg 650 mg oral Q4H PRN Melly Mireles., HUMAN RESOURCES RECORDS CLERK 650 mg at amitriptyline (ELAVIL) tablet 25 mg 25 mg oral Nightly Melly Mireles., HUMAN RESOURCES RECORDS CLERK 25 mg at 12/23/212041 bisacodyL (DULCOLAX) suppository 10 mg 10 mg rectal Daily PRN Alfonso Kelsey MD bisacodyl EC (DULCOLAX EC) tablet 10 mg 10 mg oral Daily PRN Alfonso Kelsey MD sodium chloride 0.9% flush 0.5-20 mL 0.5-20 mL intra-catheter Q8H RODERICK Melly Mireles G., HUMAN RESOURCES RECORDS CLERK 10 mL at 12/23/212041 And sodium chloride 0.9% flush 0.5-20 mL 0.5-20 mL intra-catheter PRN Melly Mireles, HUMAN RESOURCES RECORDS CLERK And Carrier Fluids for Secondary Infusion - 0.9% Sodium Chloride 30 mL intravenous PRN Melly Mireles, HUMAN RESOURCES RECORDS CLERK dextrose gel in packet 15 g 15 g oral Q15 Min PRN Alfonso Kelsey MD Or dextrose (D10W) 10% bolus 250 mL 250 mL intravenous Q15 Min PRN Alfonso Kelsey MD ertapenem (INVanz) 1,000 mg in sodium chloride 0.9% 100 mL IVPB 1,000 mg intravenous Q24H Alfonso Kelsey MD 200 mL/hr at 12/24/21 0840 1,000 mg at 12/24/21 0840 glucagon injection 1 mg 1 mg intramuscular Q30 Min PRN Alfonso Kelsey MD insulin glargine (LANTUS, SEMGLEE) 100 unit/mL injection 20 Units 0.15 Units/kg subcutaneous Nightly Alfonso Kelsey MD 20 Units at 12/23/21 2042 insulin lispro (HumaLOG, ADMELOG) 100 unit/mL injection 0-4 Units 0-4 Units subcutaneous Nightly Alfonso Kelsey MD insulin lispro (HumaLOG, ADMELOG) 100 unit/mL injection 0-5 Units 0-5 Units subcutaneous TID with meals Alfonso Kelsey MD 1 Units at 12/24/21 174 insulin lispro (HumaLOG, ADMELOG) 100 unit/mL injection 7 Units 0.05 Units/kg subcutaneous TID withmeals Alfonso Kelsey MD 7 Units at 12/24/21 174 lidocaine viscous (XYLOCAINE) 2 % solution 5-10 mL 5-10 mL oral Q4H PRN Melly Mireles, HUMAN RESOURCES RECORDS CLERK morphine injection 2 mg 2 mg intravenous Q3H PRN Melly Mireles, HUMAN RESOURCES RECORDS CLERK 2 mg at 12/24/21 1851 ondansetron ODT (ZOFRAN-ODT) disintegrating tablet 4 mg 4 mg oral Q6H PRN Melly Mireles, HUMAN RESOURCES RECORDS CLERK Or ondansetron (ZOFRAN) injection 4 mg 4 mg intravenous Q6H PRN Melly Mireles, HUMAN RESOURCES RECORDS CLERK 4 mg at 12/24/21 1515 oxybutynin (DITROPAN) tablet 5 mg 5 mg oral BID Melly Mireles, HUMAN RESOURCES RECORDS CLERK 5 mg at 12/24/[address] (PROTONIX) extended release tablet 40 mg 40 mg oral BID Melly Mireles, HUMAN RESOURCES RECORDS CLERK 40 mg at 12/24/21832 polyethylene glycol (MIRALAX) packet 17 g 17 g oral Daily PRN Alfonso Kelsey MD ramelteon (ROZEREM) tablet 8 mg 8 mg oral Nightly PRN Alfonso Kelsey MD rivaroxaban (XARELTO) tablet 20 mg 20 mg oral Daily Mireles, Melly G., HUMAN RESOURCES RECORDS CLERK 20 mg at 12/24/21832 rOPINIRole (REQUIP) tablet 5 mg 5 mg oral Nightly Mireles, Melly G., HUMAN RESOURCES RECORDS CLERK 5 mg at 12/23/212041 sodium chloride 0.9% infusion 100 mL/hr intravenous Continuous Mireles, Melly G., HUMAN RESOURCES RECORDS CLERK 100 mL/hr at 12/24/21832 100 mL/hr at 12/24/21832 A/P: Principal Problem: 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) Active Problems: Essential hypertension History of DVT (deep vein thrombosis) History of pulmonary embolism Chronic anticoagulation Type 2 diabetes mellitus with neurologic complication, without long-term current use of insulin ([facility] ([facility]) Dyslipidemia Resolved Problems: No resolved hospital problems. Malaise/Body Aches/Possible UTI - blood cultures negative to date - urine cultures growing E coli and Proteus - sensitivities pending - continue ertapenem due to prior cultures growing ecoli with cephalosporin allergies (day 3) - monitor white count and temp - check CK level - initial urine had 2+ blood with 3-5 RBCs - could be rhabdomyolysis - monitor renal function - unclear etiology of myalgias overall - cervical pathology is in the differential though favored to be less likely Type 2 Diabetes - basal bolus insulin with SSI - monitor accuchecks History of DVT/PE - continue rivaroxaban Chronic Pain Morbid Obesity LUL - cpap Case discussed with Case Management and Radiation Therapy Technologist Medical complexity/risk:Level 3: 36 min spent and > 50% counseling/coordination of care Voice recognition software MModal Fluency Direct may have been used dictate and transcribe this document. Chemist Assistant variances may occur. Despite proofreading, typographical errors may occur. Alfonso Kelsey MD 12/24/2021 8:42 PM * Ramon Guthrie - 12/23/2021 2:54 PM CDT 12/23/21 1400 Time Spent Start Time 1411 Stop Time 1440 Time Calculation (min) 29 min Patient Spiritual Assessment Spiritual Needs Prayer Clinical Encounter Type Visited With Patient Reason for visit Advanced directive Referral From Patient Advance Directives (For Healthcare) Advance Directive Patient has advance directive, copy in chart Type of Healthcare Directive Durable power of trust and estates attorney for health care;Living will Interventions Interventions Complete advance directive Pastoral care visit ended with words of encouragement and prayer blessing. Pt expressed concerns about back and bodily pain. Advance Care Planning POA-HC and Living Will completed and scanned into patient's chart. * Coco Bernal RN - 12/23/2021 9:32 AM CDT CM Initial Assessment Interview Note Information Obtained From: Patient (12/23/21929) Admission Source: Emergency Impression: Presented and admitted through ED on 12/22 c/o generalized body aches. HX: breast cancer, DM, CHF, HTN recent uti untreated infection [facility] Plan Includes: DX: complicated UTI. Merrem IV. Blood and urine cultures pending. CT ABD/Pelvis completed. VSS room air. Primary Source of Transportation: [facility] Health Insurance Coverage: [facility] Medicare Prescription Coverage: [facility] Medicare Pharmacy: [facility] Primary Care Provider: Gerardo Hoffman MD Prior to Admission: Primary Caregiver: Self Support System: Children Home Care Services: Yes Type of Home Care Services: Home infusion, Home therapies Home care service name and phone number: [facility] Home Health-completed therapy and infusion approx 10 days prior. Durable Medical Equipment: CPAP/Bi-PAP (sleep central) Living Arrangements: Children Type of Residence: Private residence (12/23/21929) SDOH: Transportation:daughters Financial Resource: Housing: Social Connections: Food Insecurity: Alcohol Use: PHQ Screening Potential discharge needs include: Home Health: IV therapy, Physical therapy, Occupational therapy, correction (pending therapy eval) (12/23/21929) Met bedside with patient-c/o generalized weakness and difficulty ambulating. Will wait for therapy eval to discuss further discharge care. Willing for home health or SNF/acute rehab if needed. Patient expects to be Discharged to: Private residence, (12/23/21 0930) Additional Information: Will continue to monitor for arising needs. Patient's Identified Problem/Goal Problem: Ensure acute medical needs are met and that patient has a safe discharge plan. Goal: Secure a discharge plan that patient/family are agreeable with and ensure patient has continuum of care. Case management will follow for discharge planning and send referrals as needed. Goals include: To assure continuity of care, To maximize coping skills, To assure patient is in a safe environment and To assure access to community resources. Plan includes: 1. Collaboration with patient, MD, direct care nurse, Radiation Therapy Technologist, and other members of the health care team to assure needed interventions completed. 2. Return patient to optimal level of self-care post discharge. 3. Dairy Technologist will follow for Discharge Planning - interventions as needed 4. Anticipated level of care at discharge 5. Planned Discharge Disposition Coco Bernal RN documented in this encounter H&P Notes * Melly Mireles NP - 12/23/2021 9:56 AM CDT Images from the original note were not included. History and Physical Date of Service: 12/23/2021 Primary Care Physician: Gerardo Hoffman MD [phone] CHIEF COMPLAINT: Patient is a 66 y.o. female with a PMHx significant for h/o breast cancer s/p mastectomy , frequentUTIs, chronic back pain s/p SCS implant c/b infected lead s/p removal w/ several weeks of antibiotics, h/o DVT/PE on Xarelto, IDDM, RLS. Presents to the ED with a chief complaint of malaise, myalgias. HPI: Patient presents from home with c/o generalized body aches, malaise and fatigue x 1 week. + Urinaryfrequency. She has also been vomiting today. 3x, NBNB.Eating at the time of my exam. She states that she gets like this when get she gets a UTI and believes the UTI is the source of the spinal cord stimulator infection. She states she was placed on ertapenem for heavy growth of E. Coli UTI on cultur es (it was very sensitive but the patient is unable to take several antibiotics due to allergies). She states she finished home abx about 3-4 weeks ago and is now having recurrent similar constitutional symptoms. She denies any fevers, chest pain, cough.Work up in the ER is notable for Ca 10.6 (corrects to 10.4 for albumin), WBC 10 and UA w/ 2+ blood, + nitrites,+ RBCs/ WBC and mucous. While in the ER she did received ertapenem. We have been asked to admit. Past Medical History: Diagnosis Date Adiposity obesity Breast CA (CMS/HCC) (HCC) Cancer (CMS/HCC) (HCC) breast CHF (congestive heart failure) (CMS/HCC) (HCC) Depression Depression Diabetes (HCC) Disorder of thyroid Thyroid disease DVT (deep venous thrombosis) (CMS/HCC) (HCC) HX OTHER MEDICAL restless leg syndrome HX OTHER MEDICAL RLS Hypertension Hypertension Osteoarthritis osteoarthritis PE (pulmonary thromboembolism) ([facility]) ([facility]) Sleep apnea Past Surgical History: [...] US SOFT TISSUE ABSCESS DRAIN N/A 10/24/2014 Medications Prior to Admission Medication Sig Dispense Refill Last Dose nystatin powder Apply 1 application topically daily 12/22/2021 albuterol HFA (PROVENTIL HFA,VENTOLIN HFA,PROAIR HFA) 90 mcg/actuation inhaler INHALE 2 PUFFS INTO LUNGS BY MOUTH EVERY 4 HOURS NEEDED FOR WHEEZING OR SHORTNESS OF BREATH (Patient not taking: No sig reported) 12/22/2021 amitriptyline (ELAVIL) 25 mg tablet Take 25 mg by mouth nightly Past Week BD Ultra-Fine Short Pen Needle 31 gauge x 5/16 needle USE 6 TIMES DAILY DIRECTED blood glucose diagnostic ([place] Ultra Test) strip 4 (four) times a day exemestane (AROMASIN) 25 mg tablet Take 1 tablet (25 mg total) by mouth nightly 90 tablet 0 Past Week HYDROcodone-acetaminophen (NORCO) 7.5-325 mg per tablet Take 1 tablet by mouth every 6 (six) hours 12/22/2021 insulin glargine (LANTUS) 100 unit/mL injection Inject 40 Units under the skin daily. Takes in the morning (Patient taking differently: Inject 50 Units under the skin daily Takes in the morning) 12/22/2021 insulin lispro (HumaLOG) 100 unit/mL injection Inject 12 Units under the skin 3 (three) times a daybefore meals. (Patient taking differently: Inject 22 Units under the skin 3 (three) times a day before meals) 12/22/2021 lidocaine viscous (XYLOCAINE) 2 % solution Take 5-10 mL by mouth every 4 (four) hours as needed (sorethroat) 200 mL 0 Unknown mupirocin (BACTROBAN) 2 % ointment mupirocin 2 % topical ointment 12/22/2021 naloxone (NARCAN) 4 mg/actuation spray,non-aerosol CALL 911. SPR CONTENTS OF ONE SPRAYER (0.1ML) INTO ONE NOSTRIL. REPEAT IN 2-3 MIN IF SYMPTOMS OF OPIOID EMERGENCY PERSIST, ALTERNATE NOSTRILS Unknown ondansetron (ZOFRAN) 4 mg tablet Take 1 tablet (4 mg total) by mouth every 4 (four) hours as neededfor nausea or vomiting 20 tablet 0 Past Week oxybutynin (DITROPAN) 5 mg tablet take 1 tablet by oral route every day (Patient taking differently: Take 5 mg by mouth 2 (two) times a day) 0 0 12/22/[address] (PROTONIX) 40 mg EC tablet Take 1 tablet (40 mg total) by mouth 2 (two) times a day60 tablet 0 rivaroxaban (Xarelto) 20 mg tablet Take 1 tablet (20 mg total) by mouth daily 30 tablet 2 Past Week rOPINIRole (REQUIP) 5 mg tablet Take 5 mg by mouth nightly Past Week Allergies Allergen Reactions Ceftriaxone Anaphylaxis R Ceftriaxone Sodium Shortness of breath Cephalosporins Anaphylaxis Lorazepam Unknown Aggrevates restless leg syndrome Latex Rash Levofloxacin Hives and Unknown Lisinopril Swelling Piperacillin-Tazobactam Rash Metoclopramide Hcl Unknown Reslizumab Unknown Ketorolac Itching Metoclopramide Other (See comments) Other reaction(s): Hyperactive [...] Systems: Review of Systems Constitutional: Positive for activity change, chills and fatigue. HENT: Negative. Eyes: Negative. Respiratory: Negative. Cardiovascular: Negative. Gastrointestinal: Negative. Endocrine: Negative. Musculoskeletal: Positive for myalgias. Allergic/Immunologic: Negative. Neurological: Negative. Hematological: Negative. Psychiatric/Behavioral: Negative. OBJECTIVE: Vitals: Arrival Vitals Temp 12/22/21 1934 36.6 ??C (97.9 ??F) Pulse 12/22/211933 99 Resp 12/22/211933 24 BP 12/22/211933 143/79 SpO2 12/22/211933 99 % Temp src 12/22/211933 Oral Heart Rate Source 12/22/21 2324 Monitor Patient Position 12/22/21 2324 Sitting BP Location 12/22/21 2324 Right arm FiO2 (%) -- Most Recent : Vitals: 12/23/21 0407 12/23/21 0501 12/23/21 0608 12/23/21 0820 BP: 146/87 125/75 159/95 143/85 BP Location: Right arm Right arm Patient Position: HOB 30 degrees;Lying Pulse: 88 78 77 74 Resp: 16 17 18 18 Temp: 36.8 ??C (98.2 ??F) 36.7 ??C (98 ??F) TempSrc: Oral Oral SpO2: 99% 96% 94% Weight: 133.7 kg (294 lb 12.8 oz) Height: 154.9 cm (5' 1 ) I/O last 2 completed shifts: In: - Out: 250 [Urine:250] I/O this shift: In: 100 [IV Piggyback:100] Out: - Physical Exam: Physical Exam Vitals reviewed. Constitutional: General: She is not in acute distress. Appearance: She is obese. She is ill-appearing. She is not toxic-appearing. HENT: Head: Normocephalic and atraumatic. Mouth/Throat: Mouth: Mucous membranes are dry. Pharynx: Oropharynx is clear. Eyes: Extraocular Movements: Extraocular movements intact. Conjunctiva/sclera: Conjunctivae normal. Pupils: Pupils are equal, round, and reactive to light. Cardiovascular: Rate and Rhythm: Normal rate and regular rhythm. Pulses: Normal pulses. Heart sounds: Normal heart sounds. Pulmonary: Effort: Pulmonary effort is normal. No respiratory distress. Breath sounds: Normal breath sounds. Abdominal: General: Abdomen is flat. Bowel sounds are normal. Palpations: Abdomen is soft. Musculoskeletal: General: Normal range of motion. Cervical [...] hour(s)) CBC with auto differential Collection Time: 12/22/21 7:53 PM Result Value Ref Range WBC 10.0 (H) 3.8 - 9.9 K/cumm Hgb 13.6 11.9 - 15.5 g/dL Hct 42.4 35.6 - 45.5 % Plt 324 150 - 400 K/cumm MPV 9.8 9.1 - 12.3 fL RBC 4.64 3.90 - 5.20 M/cumm MCV 91.4 81.3 - 96.4 fL MCH 29.3 27.1 - 33.3 pg MCHC 32.1 (L) 32.3 - 35.7 g/dL RDW CV 13.7 11.1 - 14.9 % RDW SD 45.2 35.7 - 48.1 fL NRBC abs 0.00 0.00 - 0.01 K/cumm Sepsis Lactate w/ Reflex Collection Time: 12/22/21 7:53 PM Result Value Ref Range Sepsis Lactate 1.5 0.7 - 2.0 mmol/L Influenza A/B, RSV, and COVID-19 PCR Nasopharyngeal Collection Time: 12/22/21 7:53 PM Specimen: Nasopharyngeal Result Value Ref Range COVID-19 RNA Negative Negative Influenza A RNA Negative Negative Influenza B RNA Negative Negative RSV RNA Negative Negative Differential, auto Collection Time: 12/22/21 7:53 PM Result Value Ref Range Neutrophil abs 6.0 1.7 - 6.5 K/cumm Imm gran abs 0.0 0.0 - 0.1 K/cumm Lymphocyte abs 2.9 0.8 - 3.3 K/cumm Monocyte abs 0.8 0.2 - 0.8 K/cumm Eosinophil abs 0.3 0.0 - 0.5 K/cumm Basophil abs 0.1 0.0 - 0.1 K/cumm Neutrophil pct 59.8 % Imm gran pct 0.3 % Lymphocyte pct 28.4 % Monocyte pct 7.8 % Eosinophil pct 3.2 % Basophil pct 0.5 % Urinalysis reflex to microscopic and culture Urine Collection Time: 12/22/21 10:21 PM Specimen: Urine Result Value Ref Range Color, ur Yellow Yellow Clarity, ur Clear Clear Specific gravity, ur 1.020 1.003 - 1.030 pH, urine 5.0 Protein, ur ql Negative Negative Glucose, ur ql Negative Negative Ketones, ur Trace Negative Bilirubin, ur Negative Negative Blood, ur 2+ (A) Negative Urobilinogen, ur 0.2 <2.0 mg/dL Nitrite, ur Positive (A) Negative Leukocyte esterase, ur Trace (A) Negative UA reflex comment Reflex to microscopic UA will be performed. Urinalysis, microscopic only Collection Time: 12/22/21 10:21 PM Result Value Ref Range WBC, ur 11-20 (A) 0 - 5 /HPF RBC, ur 3-5 (A) 0 - 2 /HPF Mucous, ur Present (A) Culture Reflex Comment Reflex to urine culture will be performed. Comprehensive metabolic panel Collection Time: 12/22/21 10:59 PM Result Value Ref Range Sodium 140 135 - 145 mmol/L Potassium, pl 4.3 3.3 - 4.9 mmol/L Chloride 101 97 - 110 mmol/L CO2 25 22 - 32 mmol/L Anion gap 14 2 - 15 mmol/L BUN 16 8 - 25 mg/dL Creatinine 0.70 0.60 - 1.10 mg/dL Glucose 146 70 - 199 mg/dL Calcium 10.6 (H) 8.5 - 10.3 mg/dL Bilirubin, total 0.4 0.1 - 1.2 mg/dL Protein, pl 9.2 (H) 6.5 - 8.5 g/dL Albumin 4.3 3.5 - 5.0 g/dL Alk phos 94 40 - 130 Units/L ALT 17 7 - 45 Units/L AST 19 10 - 45 Units/L eGFR Collection Time: 12/22/21 10:59 PM Result Value Ref Range eGFR 96 mL/min/1.73 m2 POCT glucose Collection Time: 12/23/21 8:25 AM Result Value Ref Range Glucose, POC 134 70 - 199 mg/dL CT Abdomen Pelvis W Contrast Result Date: 12/23/2021 Narrative: EXAM DESCRIPTION: CT ABDOMEN PELVIS W CONTRAST REASON FOR STUDY: UTI, recurrent/complicated c/o generalized body aches and chills that began last week but worsened this morning. She states everything hurts but her head and her feet, complains of generalized achy pain all over. She denies fever at home, but endorses chills and urinary frequency. Was recently admitted to [facility] and treated for urosepsis after having a UTI that was not treated and so the infection spread to her bone stimulator. Was treated with IV ertapenem that was d/c'd last week. She feels like she did when she had sepsis. She vomited x3 today and has not been able to hold anything down. She is generalized abdominal pain but no flank pain. She has not documented fever but feels fever out. Her infectious disease specialist said due to her recurrent UTI she will always need IV antibiotics. TECHNIQUE: CT scan of the abdomen and pelvis performed with intravenous and without oral contrast using helical scanning technique with dynamic intravenous contrast injection. Reconstructed coronal and sagittal MPR images reviewed. All images stored on PACS. Automated exposure control was used as a dose optimization technique for this examination. CONTRAST TYPE/DOSE: 100mL of IOVERSOL 350 MG IODINE/ML INTRAVENOUS SYRINGE injected via intravenous COMPARISON: 10/29/2021 FINDINGS: LOWER CHEST: Unchanged sub 5 mm pulmonary nodules in the left lower lobe compared to 10/29/2021. Recent guidelines by the Fleischner Society (Radiology 017152,2017) divides patient into low vs. high risk (for example, patients who smoke are considered high risk) and provides followup recommendations as follows: SOLITARY PULMONARY NODULE:Patients considered LOW RISK for lung cancer and a nodule less than 6 mm in diameter require no follow-up. In patients at HIGHER RISK, for example smokers, optional follow-up is in 1 year. MULTIPLE PULMONARY NODULES: Patients considered LOW RISK for lung cancer and multiple nodules less than 6 mm in diameter require no follow-up. In patients at HIGHER RISK, for example smokers, optional follow-upis in 1 year. Note: These recommendations do not apply to lung cancer screening, patients with immunosuppression, or patients with known primary cancer. http://pubs.rsna.org/doi/pdf/10.1148/radiol.9663285171 LIVER: Normal size. No identified cystic or solid masses. GALLBLADDER: Surgically absent BILE DUCTS: No intrahepatic or extrahepatic ductal dilatation. SPLEEN: Normal size. No focal lesions. PANCREAS: No identified cystic or solid masses. No significant calcifications. No adjacent inflammation or peripancreatic fluid collections. Pancreatic duct not dilated. ADRENALS: Normal. KIDNEYS/URINARY TRACT: Kidneys enhance symmetrically. No suspicious renal lesions. No hydronephrosis. Urinary bladder is unremarkable. GI: Changes of prior ventral hernia repair is seen. Likely postsurgical changes/scarring in the subcutaneous tissues of the anterior abdominal wall are unchanged compared to prior examination. Likely injection granuloma in the right lower quadrant is seen. Stomach and small bowel are normal in course and caliber without evidence of obstruction. Colonic diverticulosis withoutevidence of acute diverticulitis. Colonic interposition between the right anterior abdominal wall and liver is seen. The appendix is normal. Spinal stimulator device in the right posterior soft tissues is seen. PERITONEUM: No ascites or free air. RETROPERITONEUM: No mass or adenopathy. REPRODUCTIVE: No significant abnormality. VASCULATURE: No abdominal aortic aneurysm. MUSCULOSKELETAL: No significant acute abnormality. Multilevel degenerative disc disease of the lumbar spine. OTHER: No other abnormality. IMPRESSION: No acute finding. Postoperative and incidental findings as described above. REFERENCE: Unless otherwise specified, no follow-up imaging is recommended for incidental renal and adrenal lesions per consensus recommendations based on imaging criteria. Further lab evaluation couldbe pursued based on clinical findings. Management of the Incidental Renal Mass on CT: A White Paperof the ACR Incidental Findings Committee. J Am Wang Radiol. 2018 May;15(2):264-273. Management of Incidental Adrenal Masses: A White Paper of the ACR Incidental Findings Committee. J Am Wang Radiol. 2017 Nov;14(8):1038- 1044. THIS IS AN ELECTRONICALLY VERIFIED FINAL REPORT 12/23/2021 2:21 AM - Electronically signed by Pb Carvalho M.D. BB: SKIP Report ID: [id number] Reading Location: [place] [address] ASSESSMENT/PLAN: Principal Problem: 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) Active Problems: Essential hypertension History of DVT (deep vein thrombosis) History of pulmonary embolism Chronic anticoagulation Type 2 diabetes mellitus with neurologic complication, without long-term current use of insulin ([facility]) ([facility]) Dyslipidemia Resolved Problems: No resolved hospital problems. Full Code Suspected complicated UTI Reports fatigue, malaiase, body ache Afebrile WBC 10 UCX, BCx pending Ertapenem ordered given h/o multiple allergies and based on prevous cx results Gentle IVF, NS @ 75ml/hr x 1 L only PRN Orrick HTN Resume home meds H/o DVT/PE Cont Xaretlo T2DM 4CHO diet Lantus + SSI RLS Cont requip GERD Cont PPI ESTIMATED LENGTH OF STAY: >2 MN Approximate time spent for chart review, assessment, interview, and note - 38 min DVT prophylaxis:Xarelto PT/OT: consulted Melly Mireles NP 12/23/2021 10:25 AM Cosigned by Alfonso Kelsey MD at 12/23/2021 9:58 PM CDT Associated attestation - Alfonso Kelsey MD - 12/23/2021 9:58 PM CDT Images from the original note were not included. I have interviewed and examined the patient independent of the nurse practitioner. I agree with thenote by Adrienne Mireles. The patient's case was reviewed in detail, and the assessment and plan was devised in collaboration with myself. The patient is a Karly Marques a 66 y.o. female presenting with a chief complaint of Chief Complaint Patient presents with Muscle Pain Patient with history of recurrent UTIs and recent spinal cord stimulator infection presenting to [facility] with malaise and body aches. History of severe allergy to cephalosporins. Reports appetite improving and was able to eat some today. Vitals: 12/23/21 1200 12/23/21 1555 12/23/21 1900 BP: 132/79 119/73 146/84 Pulse: 75 70 76 Resp: 19 19 20 Temp: 36.8 ??C (98.3 ??F) 36.7 ??C (98 ??F) 36.8 ??C (98.3 ??F) SpO2: 95% 98% 97% Exam: General appearance No acute distress, alert and cooperative, morbidly obese Lungs clear to auscultation bilaterally Heart regular rate and rhythm, S1, S2 normal, no murmur, click, rub or gallop Abdomen soft, non-tender. Bowel sounds normal. No masses, No organomegaly Extremities extremities normal, atraumatic, no cyanosis or edema I have independently reviewed the results of tests and imaging performed including: Hematology Lab History Some values may be hidden. Unless noted otherwise, only the newest values recorded on each date aredisplayed. Labs - Hematology Latest Ref Range 10/25/21 10/29/21 12/22/21 12/23/21 WBC 3.8 - 9.9 K/cumm 11.6 (A) 21.9 (A) 10.0 (A) 8.2 Total Hb, POC 11.9 - 15.5 g/dL 12.6 13.8 13.6 11.8 (A) Hct 35.6 - 45.5 % 40.1 43.2 42.4 37.0 Plt 150 - 400 K/cumm 299 321 324 291 Neutrophil abs 1.7 - 6.5 K/cumm 7.8 (A) 18.9 (A) 6.0 5.2 Lymphocytes, abs 0.8 - 3.3 K/cumm 2.4 1.5 2.9 2.0 (A) Abnormal value Comments are available for some flowsheets but are not being displayed. Chem/LFT Lab History Some values may be hidden. Unless noted otherwise, only the newest values recorded on each date aredisplayed. Labs-Chem/LFT Latest Ref Range 10/25/21 10/29/21 12/22/21 12/23/21 Sodium 135 - 145 mmol/L 139 131 (A) 140 139 Creatinine 0.60 - 1.10 mg/dL 0.80 0.70 0.70 0.60 Bilirubin, total 0.1 - 1.2 mg/dL 0.4 1.0 0.4 0.5 AST 10 - 45 Units/L 17 13 19 19 ALT 7 - 45 Units/L 15 15 17 15 CrCl- Actual Body Weight (Cockcroft-Gault) 145.5 163.5 167.5 197.3 (A) Abnormal value Comments are available for some flowsheets but are not being displayed. Assessment & Plan Principal Problem: 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) Active Problems: Essential hypertension History of DVT (deep vein thrombosis) History of pulmonary embolism Chronic anticoagulation Type 2 diabetes mellitus with neurologic complication, without long-term current use of insulin ([facility] ([facility]) Dyslipidemia Resolved Problems: No resolved hospital problems. Malaise/Body Aches/Possible UTI - blood and urine cx pending - continue ertapenem due to prior cultures growing ecoli with cephalosporin allergies - monitor white count and temp Type 2 Diabetes - basal bolus insulin with SSI - monitor accuchecks Chronic Paintyp Morbid Obesity MDM moderate Alfonso Neptali Kelsey MD 9:44 PM 12/23/2021 [facility] Hospitalist Group documented in this encounter Nursing Notes * Farzaneh aVlero RN - 12/26/2021 2:51 PM CDT Iv removed and intact at discharge. Patient educated about discharge information and medications. Questions encouraged and answered. Patient verbalized understanding. Order for transport placed to take patient to discharge. * Jesica Santiago RN - 12/23/2021 7:11 AM CDT Patient asking for order for CPAP. States her home setting is 12. Also complaining of headache. No orders entered per night hospitalist, relayed to jaun RN. documented in this encounter ED Notes * Abiola Lees PA - 12/22/2021 11:09 PM CDT HPI Chief Complaint Patient presents with Muscle Pain HPI 12:17 AM Karly Marques is a 66 y.o. female presenting to the ED c/o generalized body aches and chills that began last week but worsened this morning. She states everything hurts but her head andher feet, complains of generalized achy pain all over. She denies fever at home, but endorses chills and urinary frequency. Was recently admitted to [facility] and treated for urosepsis after having a UTI that was not treated and so the infection spread to her bone stimulator. Was treated with IV ertapenem that was d/c'd last week. She feels like she did when she had sepsis. She vomited x3 today and has not been able to hold anything down. She is generalized abdominal pain but no flank pain. She has not documented fever but feels fever out. Her infectious disease specialist said due to her recurrent UTI she will always need IV antibiotics. Patient History: Past Medical History: Diagnosis Date Adiposity obesity Breast CA (CMS/HCC) (HCC) Cancer (CMS/HCC) (HCC) breast CHF (congestive heart failure) (CMS/HCC) (HCC) Depression Depression Diabetes (HCC) Disorder of thyroid Thyroid disease DVT (deep venous thrombosis) (CMS/HCC) (HCC) HX OTHER MEDICAL restless leg syndrome HX OTHER MEDICAL RLS Hypertension Hypertension Osteoarthritis osteoarthritis PE (pulmonary thromboembolism) ([facility]) ([facility]) Sleep apnea Past Surgical History: [...] of Systems Constitutional: Positive for chills and diaphoresis. Negative for fever. Generalized body aches everything hurts Gastrointestinal: Positive for abdominal pain. Genitourinary: Positive for frequency. Negative for dysuria and hematuria. Musculoskeletal: Positive for back pain. All systems reviewed and are neg or non contributory for this patients presentation today other than as stated in the HPI. Physical Exam ED Triage Vitals Temp Pulse Resp BP SpO2 12/22/21193312/22/21193312/22/21193312/22/21193312/22/211933 36.6 ??C (97.9 ??F) 99 24 143/79 99 % Temp src Heart Rate Source Patient Position BP Location FiO2 (%) 12/22/21193312/22/21232312/22/21232312/22/212323 -- Oral Monitor Sitting Right arm Height Height Method Weight Weight Method 12/22/21193312/22/21193312/22/21193312/22/211933 1.549 m (5' 1 ) Stated 132.4 kg (291 lb 14.2 oz) Standing scale Physical Exam Vitals and nursing note reviewed. Constitutional: General: She is not in acute distress. Appearance: She is well-developed. Comments: Morbidly obese HENT: Head: Normocephalic and atraumatic. Mouth/Throat: Mouth: Mucous membranes are moist. Pharynx: Oropharynx is clear. Eyes: General: No scleral icterus. Right eye: No discharge. Left eye: No discharge. Conjunctiva/sclera: Conjunctivae normal. Pupils: Pupils are equal, round, and reactive to light. Neck: Thyroid: No thyromegaly. Cardiovascular: Rate and Rhythm: Normal rate and regular rhythm. Heart sounds: Normal heart sounds. No murmur heard. No friction rub. No gallop. Pulmonary: Effort: Pulmonary effort is normal. No respiratory distress. Breath sounds: Normal breath sounds. No wheezing or rales. Chest: Chest wall: No tenderness. Abdominal: General: Bowel sounds are normal. There is no distension. Palpations: Abdomen is soft. Tenderness: There is abdominal tenderness. There is no right CVA tenderness, left CVA tenderness, guarding or rebound. Hernia: No hernia is present. Comments: Generalized abdominal tenderness Musculoskeletal: General: No tenderness or deformity. Normal range of motion. Cervical back: Normal range of motion and neck supple. Lymphadenopathy: Cervical: No cervical adenopathy. Skin: General: Skin is warm and dry. Capillary Refill: Capillary refill takes less than 2 seconds. Findings: No rash. Neurological: Mental Status: She is alert and oriented to person, place, and time. Sensory: No sensory deficit. Psychiatric: Behavior: Behavior normal. Thought Content: Thought content normal. Judgment: Judgment normal. Procedures [facility] Labs Reviewed URINALYSIS AND REFLEX TO MICROSCOPIC AND CULTURE - Abnormal Result Value Color, ur Yellow Clarity, ur Clear Specific gravity, ur 1.020 pH, urine 5.0 Protein, ur ql Negative Glucose, ur ql Negative Ketones, ur Trace Bilirubin, ur Negative Blood, ur 2+ (*) Urobilinogen, ur 0.2 Nitrite, ur Positive (*) Leukocyte esterase, ur Trace (*) UA reflex comment Reflex to microscopic [...] uric acid stone formation. Source: [facility] mobileo.Last revised 05-04-2017 CBC WITH AUTO DIFFERENTIAL - Abnormal WBC 10.0 (*) Hgb 13.6 Hct 42.4 Plt 324 MPV 9.8 RBC 4.64 MCV 91.4 MCH 29.3 MCHC 32.1 (*) RDW CV 13.7 RDW SD 45.2 NRBC abs 0.00 URINALYSIS, MICROSCOPIC ONLY - Abnormal WBC, ur 11-20 (*) RBC, ur 3-5 (*) Mucous, ur Present (*) Culture Reflex Comment Reflex to urine culture will be performed. COMPREHENSIVE METABOLIC PANEL - Abnormal Sodium 140 Potassium, pl 4.3 Chloride 101 CO2 25 Anion gap 14 BUN 16 Creatinine 0.70 Glucose 146 Calcium 10.6 (*) Bilirubin, total 0.4 Protein, pl 9.2 (*) Albumin 4.3 Alk phos 94 ALT 17 AST 19 INFLUENZA A/B, RSV, AND COVID-19 PCR COVID-19 RNA Negative Influenza A RNA Negative Influenza B RNA Negative RSV RNA Negative Narrative: Is the Patient experiencing symptoms consistent with COVID?->Yes Date of Symptom Onset->12/21/21 Reason for testing?->Symptomatic URINE CULTURE BLOOD CULTURE BLOOD CULTURE SEPSIS LACTATE WITH REFLEX Sepsis Lactate 1.5 DIFFERENTIAL AUTO Neutrophil abs 6.0 Imm gran abs 0.0 Lymphocyte abs 2.9 Monocyte abs 0.8 Eosinophil abs 0.3 Basophil abs 0.1 Neutrophil pct 59.8 Imm gran pct 0.3 Lymphocyte pct 28.4 Monocyte pct 7.8 Eosinophil pct 3.2 Basophil pct 0.5 EGFR eGFR 96 POCT GLUCOSE DEVICE POCT GLUCOSE DEVICE CT Abdomen Pelvis W Contrast (Results Pending) BP 161/97 (BP Location: Right arm, Patient Position: Sitting) Pulse 83 Temp 36.8 ??C (98.3 ??F)(Oral) Resp 26 Ht 154.9 cm (5' 1 ) Wt 132.4 kg (291 lb 14.2 oz) SpO2 98% BMI 55.15 kg/m?? MDM Number of Diagnoses or Management Options Body aches: new and requires workup Chills: new and requires workup 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): new and requires workup Nausea and vomiting, unspecified vomiting type: new and requires workup Diagnosis management comments: IN MY MEDICAL DECISION MAKING THE FOLLOWING DIFFERENTIAL DIAGNOSES WERE CONSIDERED BEFORE ARRIVING AT FINAL DIAGNOSIS AND MANY WERE EITHER RULED OUT OR APPEARED UNLIKELY: ACS / AMI, Appendicitis, Bowel Obstruction, Constipation, Diverticulitis, Hepatitis / Pancreatitis,Irritable Bowel Syndrome, Pneumonia, / Ectopic / Ovarian, Renal Colic /Ureteral Stone, AAA, GB, PID, PUD, UTI Amount and/or Complexity of Data Reviewed Clinical lab tests: reviewed Tests in the radiology section of CPT??: ordered Risk of Complications, Morbidity, and/or Mortality Presenting problems: high Diagnostic procedures: high Management options: high Patient Progress Patient progress: stable ED Course as of 12/23/21 0017 Time: 12/22 9855 Comment: The patient has been informed that they may have pre-hypertension or Hypertension based ngoc blood pressure reading in the emergency department. I recommend that the patient call the primarycare provider listed on their discharge instructions or a physician of their choice this week to arrange follow up for further evaluation of possible pre-hypertension or Hypertension. By: Abiola Lees PA Time: 12/22 8020 Comment: The patient has been affiliated with Infectious Disease due to her recent infection. He told her that if she gets a UTI again she will need IV antibiotics. I reviewed her most recent cultureand sensitivity with the pharmacist. They recommend giving her meropenem at this time. We are awaiting the CT scan however the patient feels today like she felt just prior to having sepsis last time.As she is vomiting she will not be able to go home. She is feeling less nauseous at this time afterZofran. By: Abiola Lees PA Time: 12/22 3092 Comment: Dr. Everett will take over care of the patient. Awaiting CT. By: Abiola Lees PA Clinical Impression: 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) Nausea and vomiting, unspecified vomiting type Chills Body aches Abiola Lees PA 12/23/21 0017 Cosigned by Kirit Everett DO at 12/23/2021 3:28 AM CDT * Melani Suarez, NURIS - 12/22/2021 7:32 PM CDT Pt arrives with c/o generalized body aches and chills since yesterday. Pt states that she was just admitted with [facility] due to an infection of her bone stimulator. Pt states everything hurts but my head and my feet. documented in this encounter Miscellaneous Notes * Provider Query - Alfonso Kelsey MD - 12/26/2021 3:15 PM CDT Please specify the Heart Failure and document in the medical record and on the form below. ___ Chronic Diastolic ___ CHF ruled out _x_ Other, specify below ___ Clinically unable to determine Additional Provider Response: Diastolic Dysfunction without clinical heart failure Clinical Indicators/Treatments: Hx of CHF noted on HP then drops off , need clarification please Echo 09/13/21 : Ejection Fraction = 55-60%. Grade I diastolic dysfunction, (abnormal relaxation pattern) Treatment: no chf meds noted Use of terms such as likely, suspected, possible, or probable (associated with a specific diagnosisthat is being evaluated, monitored, or treated as if it exists) are acceptable and can be coded in the inpatient setting when documented at the time of discharge. This documentation will become part of the patient???s medical record. Sincerely, Joanie San RN BSN * Plan of Care - Sara Alejo RN - 12/26/2021 4:21 AM CDT Problem: Health Behavior: Goal: Understanding of discharge needs will improve Outcome: Progressing Problem: Lack of Knowledge: Goal: Ability to state ways to decrease the risk of falls will improve Outcome: Progressing Problem: Safety: Goal: Will remain free from falls Outcome: Progressing Goal: Will remain free from injury from falls Outcome: Progressing Goal: Will remain free from falls and injury in home environment Outcome: Progressing Problem: Lack of Knowledge: Goal: Ability to develop a pain control plan will improve Outcome: Progressing Goal: Ability to identify pain intensity on a pain scale and rate it consistently will improve Outcome: Progressing Goal: Ability to notify healthcare provider of pain before it becomes unmanageable or unbearable will improve Outcome: Progressing Problem: Medication: Goal: Satisfaction with pain management regimen will improve Outcome: Progressing Problem: Sensory: Goal: Ability to identify factors that increase the pain will improve Outcome: Progressing Goal: Pain level will decrease Outcome: Progressing Goals: Clinical Goals for the Shift: pain managed less than 3 throughout the night Summary: pt. A&Ox4 VSS on RA. Pt. Wore cpap while resting. Pain managed with PRN medication. Fall interventions in place, will continue to monitor. * Plan of Care - Farzaneh Valero RN - 12/25/2021 4:12 PM CDT Goals: Clinical Goals for the Shift: pain managed less than 3 throughout the night Summary: pt getting norco for pain. Continue iv antibiotics. Maybe home tomorrow. Problem: Health Behavior: Goal: Understanding of discharge needs will improve Outcome: Progressing Problem: Lack of Knowledge: Goal: Ability to state ways to decrease the risk of falls will improve Outcome: Progressing Problem: Safety: Goal: Will remain free from falls Outcome: Progressing Goal: Will remain free from injury from falls Outcome: Progressing Goal: Will remain free from falls and injury in home environment Outcome: Progressing Problem: Lack of Knowledge: Goal: Ability to develop a pain control plan will improve Outcome: Progressing Goal: Ability to identify pain intensity on a pain scale and rate it consistently will improve Outcome: Progressing Goal: Ability to notify healthcare provider of pain before it becomes unmanageable or unbearable will improve Outcome: Progressing Problem: Medication: Goal: Satisfaction with pain management regimen will improve Outcome: Progressing Problem: Sensory: Goal: Ability to identify factors that increase the pain will improve Outcome: Progressing Goal: Pain level will decrease Outcome: Progressing * Plan of Care - Sara Alejo RN - 12/25/2021 3:33 AM CDT Problem: Health Behavior: Goal: Understanding of discharge needs will improve Outcome: Progressing Problem: Lack of Knowledge: Goal: Ability to state ways to decrease the risk of falls will improve Outcome: Progressing Problem: Safety: Goal: Will remain free from falls Outcome: Progressing Goal: Will remain free from injury from falls Outcome: Progressing Goal: Will remain free from falls and injury in home environment Outcome: Progressing Problem: Lack of Knowledge: Goal: Ability to develop a pain control plan will improve Outcome: Progressing Goal: Ability to identify pain intensity on a pain scale and rate it consistently will improve Outcome: Progressing Goal: Ability to notify healthcare provider of pain before it becomes unmanageable or unbearable will improve Outcome: Progressing Problem: Medication: Goal: Satisfaction with pain management regimen will improve Outcome: Progressing Problem: Sensory: Goal: Ability to identify factors that increase the pain will improve Outcome: Progressing Goal: Pain level will decrease Outcome: Progressing Goals: Clinical Goals for the Shift: pain managed less than 3 throughout the night Summary: Pt. A&Ox4 VSS on RA. Pt. Wore CPAP while resting. C/o worsening lower back pain, managed with PRN medications. Fall interventions in place, will continue to monitor. * Plan of Care - Shayna Swift RN - 12/24/2021 3:48 PM CDT Goals: Clinical Goals for the Shift: pain managed less than 3 throughout the night Summary: Problem: Health Behavior: Goal: Understanding of discharge needs will improve Outcome: Progressing Problem: Lack of Knowledge: Goal: Ability to state ways to decrease the risk of falls will improve Outcome: Progressing Problem: Safety: Goal: Will remain free from falls Outcome: Progressing Goal: Will remain free from injury from falls Outcome: Progressing Goal: Will remain free from falls and injury in home environment Outcome: Progressing Problem: Lack of Knowledge: Goal: Ability to develop a pain control plan will improve Outcome: Progressing Goal: Ability to identify pain intensity on a pain scale and rate it consistently will improve Outcome: Progressing Goal: Ability to notify healthcare provider of pain before it becomes unmanageable or unbearable will improve Outcome: Progressing Problem: Medication: Goal: Satisfaction with pain management regimen will improve Outcome: Progressing Problem: Sensory: Goal: Ability to identify factors that increase the pain will improve Outcome: Progressing Goal: Pain level will decrease Outcome: Progressing * Plan of Care - Sara Alejo RN - 12/24/2021 4:08 AM CDT Problem: Health Behavior: Goal: Understanding of discharge needs will improve Outcome: Progressing Problem: Lack of Knowledge: Goal: Ability to state ways to decrease the risk of falls will improve Outcome: Progressing Problem: Safety: Goal: Will remain free from falls Outcome: Progressing Goal: Will remain free from injury from falls Outcome: Progressing Goal: Will remain free from falls and injury in home environment Outcome: Progressing Problem: Lack of Knowledge: Goal: Ability to develop a pain control plan will improve Outcome: Progressing Goal: Ability to identify pain intensity on a pain scale and rate it consistently will improve Outcome: Progressing Goal: Ability to notify healthcare provider of pain before it becomes unmanageable or unbearable will improve Outcome: Progressing Problem: Medication: Goal: Satisfaction with pain management regimen will improve Outcome: Progressing Problem: Sensory: Goal: Ability to identify factors that increase the pain will improve Outcome: Progressing Goal: Pain level will decrease Outcome: Progressing Goals: Clinical Goals for the Shift: pain managed less than 3 throughout the night Summary: pt. A&Ox4 VSS on RA. CPAP on while resting. C/o pain, managed with PRN medications. Fall interventions in place, will continue to monitor. * Plan of Care - Jesica Santiago RN - 12/23/2021 7:35 AM CDT Problem: Health Behavior: Goal: Understanding of discharge needs will improve Outcome: Progressing Problem: Lack of Knowledge: Goal: Ability to state ways to decrease the risk of falls will improve Outcome: Progressing Problem: Safety: Goal: Will remain free from falls Outcome: Progressing Goal: Will remain free from injury from falls Outcome: Progressing Goal: Will remain free from falls and injury in home environment Outcome: Progressing Goals: Summary: Patient walked to bathroom upon arrival to floor with assist of PCT and cane. Complaints of frequency denies pain/burning with urination. Patient placed in bed, call light within reach, bed alarm in place. * ED Re-evaluation Note - Kirit Everett DO - 12/23/2021 12:16 AM CDT Pt signed out to me by LINDA Hurst, at shift change. Pt is a 66 year old female with PMHx breast cancer, CHF, depression, DM, and HTN presenting to the ED c/o generalized body aches and chills that began last week but worsened this morning. Pt states everything hurts but her head and her feet, complains of generalized achy pain all over. Pt denies fever at home, but endorses chills and urinary frequency. Per chart review, pt was recently admittedto [facility] and treated for urosepsis after having a UTI that was not treated and so the infection spread to her bone stimulator. Pt was treated with IV ertapenem that was d/c'd last week. Pt states she feels like she did when she had sepsis. Pt reports she vomited x3 today and has not been able to hold anything down. Pt endorses generalized abdominal pain but no flank pain. No other pt complaints at this time. Pending CT and reassessment. ED Course: Pt given IV Meropenum for complicated UTI with possible bacteremia. - Pt given IVF, zofran, and morphine. - talked to Dr. Calero and agrees to admit pt inpatient for UTI. This note was prepared by Prince Andersen, acting as a Scribe for Kirit Everett DO. I electronically signed this note at 12:42 AM on 12/23/2021. I, Kirit Everett DO, personally performed the services described in this documentation, reviewedand edited the documentation which was dictated to the scribe in my presence, and it accurately records my words and actions. Kirit Everett DO 12/23/21 033 Kirit Everett DO 12/23/21 033 documented in this encounter Plan of Treatment Not on file documented as of this encounter Procedures Procedure Name Priority Date/Time Associated Diagnosis Comments POCT GLUCOSE DEVICE Routine 12/26/2021 1 2:09 PM CDT POCT GLUCOSE DEVICE Routine 12/26/2021 8 :35 AM CDT EGFR Routine 12/26/2021 4:01 AM CDT CBC WITHOUT DIFFERENTIAL Routine 12/26/2021 4:01 AM CDT BASIC METABOLIC PANEL Routine 12/26/2021 4:01 AM CDT POCT GLUCOSE DEVICE Routine 12/25/2021 7 :02 PM CDT POCT GLUCOSE DEVICE Routine 12/25/2021 1 1:56 AM CDT EGFR Routine 12/25/2021 9:32 AM CDT CBC WITHOUT DIFFERENTIAL Routine 12/25/2021 9:32 AM CDT CREATINE KINASE (CK), TOTAL Routine 12/25/2021 9:32 AM CDT BASIC METABOLIC PANEL Routine 12/25/2021 9:32 AM CDT POCT GLUCOSE DEVICE Routine 12/25/2021 7 :08 AM CDT POCT GLUCOSE DEVICE Routine 12/24/2021 7 :37 PM CDT POCT GLUCOSE DEVICE Routine 12/24/2021 4 :36 PM CDT POCT GLUCOSE DEVICE Routine 12/24/2021 1 2:14 PM CDT POCT GLUCOSE DEVICE Routine 12/24/2021 7 :48 AM CDT EGFR Routine 12/24/2021 3:26 AM CDT CBC WITHOUT DIFFERENTIAL Routine 12/24/2021 3:26 AM CDT BASIC METABOLIC PANEL Routine 12/24/2021 3:26 AM CDT POCT GLUCOSE DEVICE Routine 12/23/2021 7 :33 PM CDT POCT GLUCOSE DEVICE Routine 12/23/2021 3 :58 PM CDT POCT GLUCOSE DEVICE Routine 12/23/2021 1 2:39 PM CDT EGFR Routine 12/23/2021 10:44 AM CDT DIFFERENTIAL AUTO Routine 12/23/2021 10: 44 AM CDT CBC WITH AUTO DIFFERENTIAL Routine 12/23/2021 10:44 AM CDT ERYTHROCYTE SEDIMENTATION RATE Routine 12/23/2021 10:44 AM CDT CRP (ACUTE PHASE) Routine 12/23/2021 10: 44 AM CDT PHOSPHORUS Routine 12/23/2021 10:44 AM CDT MAGNESIUM Routine 12/23/2021 10:44 AM CDT COMPREHENSIVE METABOLIC PANEL Routine 12/23/2021 10:44 AM CDT POCT GLUCOSE DEVICE Routine 12/23/2021 8 :[address] ABDOMEN PELVIS W CONTRAST ED 12/23/2021 1:00 AM CDT BLOOD CULTURE STAT 12/22/2021 11:55 PM CDT BLOOD CULTURE STAT 12/22/2021 11:53 PM CDT EGFR STAT 12/22/2021 10:59 PM CDT COMPREHENSIVE METABOLIC PANEL STAT 12/22/2021 10:59 PM CDT URINALYSIS AND REFLEX TO MICROSCOPIC AND CULTURE STAT 12/22/2021 10:21 PM CDT URINALYSIS, MICROSCOPIC ONLY STAT 12/22/2021 10:21 PM CDT URINE CULTURE STAT 12/22/2021 10:21 PM CDT INFLUENZA A/B, RSV, AND COVID-19 PCR Routine 12/22/2021 7:53 PM CDT SEPSIS LACTATE WITH REFLEX Routine 12/22/2021 7:53 PM CDT DIFFERENTIAL AUTO STAT 12/22/2021 7:5 3 PM CDT CBC WITH AUTO DIFFERENTIAL STAT 12/22/2021 7:53 PM CDT documented in this encounter Results * POCT glucose (12/26/2021 12:09 PM CDT) Glucose, POC 113 70 - 199 mg/dL MARY JANE Comment:Testing performed by : [address] [address] Blood 12/26/2021 12:0 9 PM CDT 12/26/2021 12:09 PM CDT Alfonso Kelsey MD LAB POCT ORDERABLES - NILESH CE Final Result Performing Organization Address [facility] Co de Phone Number [address] [place] [address] * POCT glucose (12/26/2021 8:35 AM CDT) Glucose, POC 153 70 - 199 mg/dL MARY JANE Comment:Testing performed by : [address] [id number] Blood 12/26/2021 8:35 AM CDT 12/26/2021 8:35 AM CDT Alfonso Kelsey MD LAB POCT ORDERABLES - NILESH CE Final Result Performing Organization Address City/[facility]/ZIP Co de Phone Number [address] [address] * eGFR (12/26/2021 4:01 AM CDT) eGFR 96 mL/min/1. 73 m2 MARY JANE [...] was last reviewed 2021. Testing performed by: [address] [id number] Blood 12/26/2021 4:01 AM CDT 12/26/2021 5:31 AM CDT us Alfonso Kelsey MD LAB BLOOD ORDERABLES Final Result MARY JANE PHAM [address] [facility] Department [place] [address] * (ABNORMAL) CBC without differential (12/26/2021 4:01 AM CDT) Pathologist [facility] WBC 8.4 3.8 - 9.9 K/cumm MARY JANE PHAM Comment:Testing performed by : [address] [address] Hgb 11.6(L) 11.9 - 15.5 g/dL MARY JANE Comment:Testing performed by : [address], [address] Hct 36.7 35.6 - 45.5 % MARY JANE Comment:Testing performed by : [address], [address] Plt 275 150 - 400 K/cumm MARY JANE Comment:Testing performed by : [address], [address] MPV 10.3 9.1 - 12.3 fL MARY JANE Comment:Testing performed by : [address], [address] RBC 3.99 3.90 - 5.20 M/cumm MARY JANE Comment:Testing performed by : [address], [address] MCV 92.0 81.3 - 96.4 fL MARY JANE Comment:Testing performed by : [address], [address] MCH 29.1 27.1 - 33.3 pg MARY JANE Comment:Testing performed by : [address], [address] MCHC 31.6(L) 32.3 - 35.7 g/dL MARY JANE Comment:Testing performed by : [address], [address] RDW CV 13.2 11.1 - 14.9 % MARY JANE Comment:Testing performed by : [address], [address] RDW SD 44.6 35.7 - 48.1 fL MARY JANE Comment:Testing performed by : [address], [address] NRBC abs 0.00 0.00 - 0.01 K/cumm MARY JANE Comment:Testing performed by : [address], [address] Blood 12/26/2021 4:01 AM CDT 12/26/2021 5:31 AM CDT us Alfonso Kelsey MD LAB BLOOD ORDERABLES Final Result MARY JANE PHAM [address] [facility] Department [place] [address] * Basic metabolic panel (12/26/2021 4:01 AM CDT) Sodium 137 135 - 145 mmol/L MRAY JANE Comment:Testing performed by : [address] [address] Potassium, pl 4.0 3.3 - 4.9 mmol/L MARY AJNE Comment:Testing performed by : [address] [address] Chloride 101 97 - 110 mmol/L MARY JANE Comment:Testing performed by : [address] [address] CO2 28 22 - 32 mmol/L MARY JANE Comment:Testing performed by : [address] [address] Anion gap 8 2 - 15 mmol/L MARY JANE Comment:Testing performed by : [address] [address] BUN 13 8 - 25 mg/dL MARY JANE Comment:Testing performed by : [address] [address] Creatinine 0.70 0.60 - 1.10 mg/dL MARY JANE Comment:Testing performed by : [address] [address] Glucose 169 70 - 199 mg/dL MARY JANE Comment: [...] was last revised 2017. Testing performed by: [facility], [address] [place] [address]., [address] Calcium 9.3 8.5 - 10.3 mg/dL MARY JANE PHAM Comment:Testing performed by : [address] [address] Blood 12/26/2021 4:01 AM CDT 12/26/2021 5:31 AM CDT Alfonso Kelsey MD LAB BLOOD ORDERABLES Final Result Performing Organization Address [facility] de Phone Number [address] [place] [address] * POCT glucose (12/25/2021 7:02 PM CDT) Glucose, POC 179 70 - 199 mg/dL MARY JANE Comment:Testing performed by : [address] [address] Glucose comment 1 Use This Result MARY JANE PHAM Comment:Testing performed by : [address] [address] Blood 12/25/2021 7:02 PM CDT 12/25/2021 7:02 PM CDT us Alfonso Kelsey MD LAB POCT ORDERABLES - NILESH CE Final Result Performing Organization Address [facility] de Phone Number [address] [place] [address] * POCT glucose (12/25/2021 11:56 AM CDT) Glucose, POC 134 70 - 199 mg/dL MARY JANE Comment:Testing performed by : [address] [address] Blood 12/25/2021 11:5 6 AM CDT 12/25/2021 11:56 AM CDT us Alfonso Kelsey MD LAB POCT ORDERABLES - NILESH CE Final Result MARY JANE [address] [facility] Department [place] [address] * eGFR (12/25/2021 9:32 AM CDT) eGFR 96 mL/min/1. 73 m2 MARY JANE [...] was last reviewed 2021. Testing performed by: [facility], [address] [place] [address]., [id number] Blood 12/25/2021 9:32 AM CDT 12/25/2021 9:42 AM CDT us Alfonso Kelsey MD LAB BLOOD ORDERABLES Final Result MARY JANE [address] [facility] [place] [address] * Creatine kinase (CK), total (12/25/2021 9:32 AM CDT) CK 78 30 - 200 Units/L MARY JANE Comment:Testing performed by : [address] [address] Blood 12/25/2021 9:32 AM CDT 12/25/2021 9:42 AM CDT us Alfonso Kelsey MD LAB BLOOD ORDERABLES Final Result MARY JANE [facility] Department of Laboratories [place], [place] [id number] * (ABNORMAL) CBC without differential (12/25/2021 9:32 AM CDT) Pathologist [facility] WBC 7.1 3.8 - 9.9 K/cumm MARY JANE Comment:Testing performed by : [address] [address] Hgb 11.2(L) 11.9 - 15.5 g/dL MARY JANE Comment:Testing performed by : [address] [address] Hct 35.5(L) 35.6 - 45.5 % MARY JANE Comment:Testing performed by : [address] [address] Plt 251 150 - 400 K/cumm MARY JANE Comment:Testing performed by : [address] [address] MPV 10.0 9.1 - 12.3 fL MARY JANE Comment:Testing performed by : [address] [address] RBC 3.85(L) 3.90 - 5.20 M/cumm MARY JANE Comment:Testing performed by : [address] [address] MCV 92.2 81.3 - 96.4 fL MARY JANE Comment:Testing performed by : [address], [address] MCH 29.1 27.1 - 33.3 pg MARY JANE PHAM Comment:Testing performed by : [address] [address] MCHC 31.5(L) 32.3 - 35.7 g/dL MARY JANE PHAM Comment:Testing performed by : [address] [address] RDW CV 13.4 11.1 - 14.9 % MARY JANE PHAM Comment:Testing performed by : [address] [address] RDW SD 46.1 35.7 - 48.1 fL MARY JANE PHAM Comment:Testing performed by : [address] [address] NRBC abs 0.00 0.00 - 0.01 K/cumm MARY JANE PHAM Comment:Testing performed by : [address] [address] Blood 12/25/2021 9:32 AM CDT 12/25/2021 9:47 AM CDT us Alfonso Kelsey MD LAB BLOOD ORDERABLES Final Result MARY JANE [facility] [place] [address] * Basic metabolic panel (12/25/2021 9:32 AM CDT) Sodium 137 135 - 145 mmol/L MARY JANE PHAM Comment:Testing performed by : [address] [address] Potassium, pl 4.0 3.3 - 4.9 mmol/L MARY JANE PHAM Comment:Testing performed by : [address] [address] Chloride 102 97 - 110 mmol/L MARY JANE PHAM Comment:Testing performed by : [address] [address] CO2 27 22 - 32 mmol/L MARY JANE PHAM Comment:Testing performed by : [address] [address] Anion gap 8 2 - 15 mmol/L MARY JANE PHAM Comment:Testing performed by : [address] [address] BUN 12 8 - 25 mg/dL MARY JANE PHAM Comment:Testing performed by : [address] [address] Creatinine 0.70 0.60 - 1.10 mg/dL MARY JANE PHAM Comment:Testing performed by : [address] [address] Glucose 158 70 - 199 mg/dL MARY JANE PHAM [...] was last revised 2017. Testing performed by: [address] [address] Calcium 9.3 8.5 - 10.3 mg/dL MARY JANE PHAM Comment:Testing performed by : [address] [address] Blood 12/25/2021 9:32 AM CDT 12/25/2021 9:42 AM CDT us Alfonso Kelsey MD LAB BLOOD ORDERABLES Final Result MARY JANE [address] [facility] Department of Laboratories [place], [place] [id number] * POCT glucose (12/25/2021 7:08 AM CDT) [facility] Signature Glucose, POC 153 70 - 199 mg/dL MARY JANE PHAM Comment:Testing performed by : [address] [address] Blood 12/25/2021 7:08 AM CDT 12/25/2021 7:08 AM CDT Alfonso Kelsey MD LAB POCT ORDERABLES - NILESH CE Final Result Performing Organization Address [facility] Co de Phone Number MARY JANE [facility] [place] [address] * POCT glucose (12/24/2021 7:37 PM CDT) Glucose, POC 137 70 - 199 mg/dL MARY JANE Comment:Testing performed by : [facility], [address] [place] [address]., [address] Glucose comment 1 Use This Result MARY JANE Comment:Testing performed by : [address] [address] Blood 12/24/2021 7:37 PM CDT 12/24/2021 7:37 PM CDT Alfonso Kelsey MD LAB POCT ORDERABLES - NILESH CE Final Result Performing Organization Address [facility] de Phone Number MARY JANE [address] [address] * POCT glucose (12/24/2021 4:36 PM CDT) Glucose, POC 160 70 - 199 mg/dL MARY JANE Comment:Testing performed by : [address] [address] Glucose comment 1 Use This Result MARY JANE Comment:Testing performed by : [facility], [address] [place] [address]., [address] Blood 12/24/2021 4:36 PM CDT 12/24/2021 4:36 PM CDT Alfonso Kelsey MD LAB POCT ORDERABLES - NILESH CE Final Result Performing Organization Address City/[facility] Co de Phone Number MARY JANE [address] [place] [address] * POCT glucose (12/24/2021 12:14 PM CDT) Glucose, POC 103 70 - 199 mg/dL MARY JANE Comment:Testing performed by : [facility], [address] [place] [address]., [address] Glucose comment 1 Use This Result MARY JANE Comment:Testing performed by : [address] [address] Blood 12/24/2021 12:1 4 PM CDT 12/24/2021 12:14 PM CDT Alfonso Kelsey MD LAB POCT ORDERABLES - NILESH CE Final Result Performing Organization Address [facility] de Phone Number [address] [place] [place] [address] * POCT glucose (12/24/2021 7:48 AM CDT) [facility] Glucose, POC 108 70 - 199 mg/dL MARY JANE Comment:Testing performed by : [facility], [address] [place] [address]., [address] Glucose comment 1 Use This Result MARY JANE Comment:Testing performed by : [address] [address] Blood 12/24/2021 7:48 AM CDT 12/24/2021 7:48 AM CDT us Alfonso Kelsey MD LAB POCT ORDERABLES - NILESH CE Final Result Performing Organization Address [facility] de Phone Number [address] [place] [address] * eGFR (12/24/2021 3:26 AM CDT) Pathologist [facility] eGFR 100 mL/min/1. 73 m2 MARY JANE Comment: Interpretive [...] was last reviewed 2021. Testing performed by: [address] [address] Blood 12/24/2021 3:26 AM CDT 12/24/2021 4:04 AM CDT us Alfonso Kelsey MD LAB BLOOD ORDERABLES Final Result Performing Organization Address City/State/[facility] Co de Phone Number MARY JANE [address] [facility] Department [place] [address] * (ABNORMAL) CBC without differential (12/24/2021 3:26 AM CDT) Pathologist [facility] WBC 9.0 3.8 - 9.9 K/cumm MARY JANE PHAM Comment:Testing performed by : [address] [address] Hgb 11.5(L) 11.9 - 15.5 g/dL MARY JANE PHAM Comment:Testing performed by : [address] [address] Hct 35.8 35.6 - 45.5 % MARY JANE PHAM Comment:Testing performed by : [address] [address] Plt 265 150 - 400 K/cumm MARY JANE PHAM Comment:Testing performed by : [address] [address] MPV 9.7 9.1 - 12.3 fL MARY JANE PHAM Comment:Testing performed by : [address] [address] RBC 3.93 3.90 - 5.20 M/cumm MARY JANE PHAM Comment:Testing performed by : [address] [address] MCV 91.1 81.3 - 96.4 fL MARY JANE PHAM Comment:Testing performed by : [address] [address] MCH 29.3 27.1 - 33.3 pg MARY JANE PHAM Comment:Testing performed by : [address] [address] MCHC 32.1(L) 32.3 - 35.7 g/dL MARY JANE PHAM Comment:Testing performed by : [address] [address] RDW CV 13.4 11.1 - 14.9 % MARY JANE PHAM Comment:Testing performed by : [address] [address] RDW SD 45.0 35.7 - 48.1 fL MARY JANE PHAM Comment:Testing performed by : [address] [address] NRBC abs 0.00 0.00 - 0.01 K/cumm MARY JANE PHAM Comment:Testing performed by : [address] [address] Blood 12/24/2021 3:26 AM CDT 12/24/2021 4:04 AM CDT us Alfonso Kelsey MD LAB BLOOD ORDERABLES Final Result MARY JANE [address] [facility] Department [place] [address] * Basic metabolic panel (12/24/2021 3:26 AM CDT) [facility] Sodium 137 135 - 145 mmol/L MARY JANE Comment:Testing performed by : [address], [place]., [address] Potassium, pl 4.0 3.3 - 4.9 mmol/L MARY JANE Comment:Testing performed by : [address], [place]., [address] Chloride 104 97 - 110 mmol/L MARY JANE Comment:Testing performed by : [address], [place]., [address] CO2 26 22 - 32 mmol/L MARY JANE Comment:Testing performed by : [address], [place]., [address] Anion gap 7 2 - 15 mmol/L MARY JANE Comment:Testing performed by : [address], [place]., [address] BUN 14 8 - 25 mg/dL MARY JANE Comment:Testing performed by : [address], [place]., [address] Creatinine 0.60 0.60 - 1.10 mg/dL MARY JANE Comment:Testing performed by : [address], [place]., [address] Glucose 145 70 - 199 mg/dL [facility] Comment: Interpretive Data Fasting glucose >/= [...] was last revised 2017. Testing performed by: [address] [address] Calcium 9.0 8.5 - 10.3 mg/dL MARY JANE Comment:Testing performed by : [address], [place]., [address] Blood 12/24/2021 3:26 AM CDT 12/24/2021 4:04 AM CDT Alfonso Kelsey MD LAB BLOOD ORDERABLES Final Result Performing Organization Address [facility] Co de Phone Number MARY JANE [address] [place] [address] * POCT glucose (12/23/2021 7:33 PM CDT) Glucose, POC 175 70 - 199 mg/dL MARY JANE Comment:Testing performed by : [address] [address] Glucose comment 1 Use This Result MARY JANE PHAM Comment:Testing performed by : [address] [address] Blood 12/23/2021 7:33 PM CDT 12/23/2021 7:33 PM CDT Alfonso Kelsey MD LAB POCT ORDERABLES - NILESH CE Final Result Performing Organization Address [facility] de Phone Number [address] [place] [address] * POCT glucose (12/23/2021 3:58 PM CDT) Glucose, POC 127 70 - 199 mg/dL MARY JANE Comment:Testing performed by : [address] [address] Blood 12/23/2021 3:58 PM CDT 12/23/2021 3:58 PM CDT Alfonso Kelsey MD LAB POCT ORDERABLES - NILESH CE Final Result Performing Organization Address City/[facility] Co de Phone Number [address] [place] [address] * POCT glucose (12/23/2021 12:39 PM CDT) Glucose, POC 120 70 - 199 mg/dL MARY JANE PHAM Comment:Testing performed by : [address] [place] [address] Blood 12/23/2021 12:3 9 PM CDT 12/23/2021 12:39 PM CDT us Alfonso Kelsey MD LAB POCT ORDERABLES - NILESH CE Final Result MARY JANE ANKIT [address] [facility] Department of Laboratories [place], [place] [id number] * eGFR (12/23/2021 10:44 AM CDT) eGFR 100 mL/min/1. 73 m2 MARY [...] was last reviewed 2021. Testing performed by: [facility], [address] [place] [address]., [address] Blood 12/23/2021 10:4 4 AM CDT 12/23/2021 11:10 AM CDT us Alfonso Kelsey MD LAB BLOOD ORDERABLES Final Result MARY JANE [address] [facility] Department of Laboratories [place], [place] [id number] * Differential, auto (12/23/2021 10:44 AM CDT) Neutrophil abs 5.2 1.7 - 6.5 K/cumm MARY JANE Comment:Testing performed by : [address] [address] Imm gran abs 0.0 0.0 - 0.1 K/cumm MARY JANE Comment:Testing performed by : [address] [address] Lymphocyte abs 2.0 0.8 - 3.3 K/cumm MARY JANE Comment:Testing performed by : [address] [address] Monocyte abs 0.7 0.2 - 0.8 K/cumm MARY JANE Comment:Testing performed by : [address] [address] Eosinophil abs 0.3 0.0 - 0.5 K/cumm MARY JANE Comment:Testing performed by : [address] [address] Basophil abs 0.0 0.0 - 0.1 K/cumm MARY JANE Comment:Testing performed by : [address] [address] Neutrophil pct 63.2 % MARY JANE Comment: Interpretive Data Percent cell count reference ranges are not reported, since discordance with absolute values may lead to misinterpretation of CBC data. Current Interpretive Data was last revised on 2017. Testing performed by: [address] [address] Imm gran pct 0.1 % MARY JANE Comment: Interpretive Data Percent cell count reference ranges are not reported, since discordance with absolute values may lead to misinterpretation of CBC data. Current Interpretive Data was last revised on 2017. Testing performed by: [address] [address] Lymphocyte pct 24.1 % MARY JANE Comment: Interpretive Data Percent cell count reference ranges are not reported, since discordance with absolute values may lead to misinterpretation of CBC data. Current Interpretive Data was last revised on 2017. Testing performed by: [address] [address] Monocyte pct 8.5 % MARY JANE Comment: Interpretive Data Percent cell count reference ranges are not reported, since discordance with absolute values may lead to misinterpretation of CBC data. Current Interpretive Data was last revised on 2017. Testing performed by: [address] [address] Eosinophil pct 3.7 % MARY JANE Comment: Interpretive Data Percent cell count reference ranges are not reported, since discordance with absolute values may lead to misinterpretation of CBC data. Current Interpretive Data was last revised on 2017. Testing performed by: [address] [address] Basophil pct 0.4 % MARY JANE Comment: Interpretive Data Percent cell count reference ranges are not reported, since discordance with absolute values may lead to misinterpretation of CBC data. Current Interpretive Data was last revised on 2017. Testing performed by: [address] [address] Blood 12/23/2021 10:4 4 AM CDT 12/23/2021 11:10 AM CDT Alfonso Kelsey MD LAB BLOOD ORDERABLES Final Result MARY JANE [address] [facility] Department of Laboratories [place], [place] [id number] * (ABNORMAL) CRP (acute phase) (12/23/2021 10:44 AM CDT) CRP 15.5(H) <=10.0 mg/L MARY JANE PHAM Comment:Testing performed by : [address] [address] Blood 12/23/2021 10:4 4 AM CDT 12/23/2021 11:10 AM CDT Alfonso Kelsey MD LAB BLOOD ORDERABLES Final Result Performing Organization Address [facility] Co de Phone Number [address] [place] [address] * (ABNORMAL) Erythrocyte sedimentation rate (12/23/2021 10:44 AM CDT) Pathologist [facility] Erythrocyte sedimentation rate 64(H) 1 - 30 mm/hr MARY JANE Comment:Testing performed by : [address] [address] Blood 12/23/2021 10:4 4 AM CDT 12/23/2021 11:10 AM CDT Alfonso Kelsey MD LAB BLOOD ORDERABLES Final Result Performing Organization Address [facility] de Phone Number [address] [address] * Phosphorus (12/23/2021 10:44 AM CDT) Phosphorus, pl 3.4 2.3 - 4.5 mg/dL MARY JANE Comment:Testing performed by : [address] [address] Blood 12/23/2021 10:4 4 AM CDT 12/23/2021 11:10 AM CDT Alfonso Kelsey MD LAB BLOOD ORDERABLES Final Result Performing Organization Address [facility] de Phone Number [address] [address] * Magnesium (12/23/2021 10:44 AM CDT) Magnesium 1.7 1.4 - 2.5 mg/dL MARY JANE Comment:Testing performed by : [address] [address] Blood 12/23/2021 10:4 4 AM CDT 12/23/2021 11:10 AM CDT us Alfonso Kelsey MD LAB BLOOD ORDERABLES Final Result MARY JANE [address] [facility] [place] [address] * Comprehensive metabolic panel (12/23/2021 10:44 AM CDT) Sodium 139 135 - 145 mmol/L MARY JANE Comment:Testing performed by : [address] [address] Potassium, pl 4.1 3.3 - 4.9 mmol/L MARY JANE Comment:Testing performed by : [address] [address] Chloride 104 97 - 110 mmol/L MARY JANE Comment:Testing performed by : [address] [address] CO2 27 22 - 32 mmol/L MARY JANE Comment:Testing performed by : [address] [address] Anion gap 8 2 - 15 mmol/L MARY JANE Comment:Testing performed by : [address] [address] BUN 14 8 - 25 mg/dL MARY JANE Comment:Testing performed by : [address] [address] Creatinine 0.60 0.60 - 1.10 mg/dL MARYJ ANE Comment:Testing performed by : [address] [address] Glucose 153 70 - 199 mg/dL MARY JANE Comment: [...] was last revised 2017. Testing performed by: [address] [address] Calcium 9.3 8.5 - 10.3 mg/dL MARY JANE Comment:Testing performed by : [address] [address] Bilirubin, total 0.5 0.1 - 1.2 mg/dL MARY JANE Comment:Testing performed by : [address] [address] Protein, pl 7.6 6.5 - 8.5 g/dL MARY JANE Comment:Testing performed by : [address] [address] Albumin 3.7 3.5 - 5.0 g/dL MARY JANE Comment:Testing performed by : [address] [address] Alk phos 85 40 - 130 Units/L MARY JANE Comment:Testing performed by : [address] [address] ALT 15 7 - 45 Units/L MARY JANE Comment:Testing performed by : [address] [address] AST 19 10 - 45 Units/L MARY JANE Comment:Testing performed by : [address] [address] Blood 12/23/2021 10:4 4 AM CDT 12/23/2021 11:10 AM CDT us Alfonso Kelsey MD LAB BLOOD ORDERABLES Final Result MARY JANE [address] [facility] [place] [address] * (ABNORMAL) CBC with auto differential (12/23/2021 10:44 AM CDT) WBC 8.2 3.8 - 9.9 K/cumm MARY JANE Comment:Testing performed by : [address] [place] [address] Hgb 11.8(L) 11.9 - 15.5 g/dL MARY JAEN Comment:Testing performed by : [address], [address] Hct 37.0 35.6 - 45.5 % MARY JANE Comment:Testing performed by : [address], [address] Plt 291 150 - 400 K/cumm MARY JANE Comment:Testing performed by : [address], [address] MPV 10.0 9.1 - 12.3 fL MARY JANE Comment:Testing performed by : [address], [address] RBC 4.00 3.90 - 5.20 M/cumm MARY JANE Comment:Testing performed by : [address], [address] MCV 92.5 81.3 - 96.4 fL MARY JANE Comment:Testing performed by : [address], [address] MCH 29.5 27.1 - 33.3 pg MARY JANE Comment:Testing performed by : [address], [address] MCHC 31.9(L) 32.3 - 35.7 g/dL MARY JANE Comment:Testing performed by : [address], [address] RDW CV 13.7 11.1 - 14.9 % MARY JANE Comment:Testing performed by : [address], [address] RDW SD 46.5 35.7 - 48.1 fL MARY JANE Comment:Testing performed by : [address], [address] NRBC abs 0.00 0.00 - 0.01 K/cumm MARY JANE Comment:Testing performed by : [address], [address] Blood 12/23/2021 10:4 4 AM CDT 12/23/2021 11:10 AM CDT Alfonso Kelsey MD LAB BLOOD ORDERABLES Final Result Performing Organization Address City/[facility]/ZIP Co de Phone Number MARY JANE [address] [facility] [place] [address] * POCT glucose (12/23/2021 8:25 AM CDT) [facility] Signature Glucose, POC 134 70 - 199 mg/dL BCPUJA Comment:Testing performed by : [facility], [address] [place] [address]., [address] Blood 12/23/2021 8:25 AM CDT 12/23/2021 8:25 AM CDT Alfonso Kelsey MD LAB POCT ORDERABLES - NILESH CE Final Result Performing Organization Address [facility] Co de Phone Number MARY JANE [address] [facility] [place] [address] * CT Abdomen Pelvis W Contrast (12/23/2021 1:00 AM CDT) Anatomical Region Laterality Modality Body N/A Computed Tomogra phy 12/23/2021 2:15 AM CDT Narrative 12/23/2021 2:21 AM CDT EXAM DESCRIPTION: ?? CT ABDOMEN PELVIS W CONTRAST REASON FOR STUDY: ?? UTI, recurrent/complicated ?? c/o generalized body aches and chills that began last week but worsened this morning. She states everything hurts but her head and her feet, complains of generalized achy pain all over. She denies fever at home, but endorses chills and urinary ?? frequency. Was recently admitted to [facility] and treated for urosepsis after having a UTI that was not treated and so the infection spread to her bone stimulator. Was treated with IV ertapenem that was d/c'd last week. ??She feels like she did when she had ?? sepsis. ??She vomited x3 today and has not been able to hold anything down. ??She is generalized abdominal pain but no flank pain. ??She has not documented fever but feels fever out. ??Her infectious disease specialist said due to her recurrent UTI she will ?? always need IV antibiotics. ?? TECHNIQUE: CT scan of the abdomen [...] ?? injected via ?? intravenous COMPARISON: ?? 10/29/2021 FINDINGS: LOWER CHEST: ?? Unchanged sub 5 mm pulmonary nodules in the left lower lobe compared to 10/29/2021. Recent guidelines by the [employer] Society (Radiology 454111,2017) divides patient into low vs. high risk (for example, patients who smoke are considered high risk) and provides followup recommendations as follows: SOLITARY PULMONARY NODULE: Patients considered LOW RISK for lung cancer and a nodule less than 6 mm in diameter require no follow-up. ??In patients at HIGHER RISK, for example smokers, optional follow-up is in 1 year. MULTIPLE PULMONARY NODULES: Patients considered LOW RISK for lung cancer and multiple nodules less than 6 mm in diameter require no follow-up. ??In patients at HIGHER RISK, for example smokers, optional follow-up is in 1 year. Note: These recommendations do not apply to lung cancer screening, patients with immunosuppression, or patients with known primary cancer. http://pubs.rsna.org/doi/pdf/10.1148/radiol.0292625638 LIVER: ?? Normal size. ??No identified cystic or solid masses. GALLBLADDER: ?? Surgically absent BILE DUCTS: ?? No intrahepatic or extrahepatic ductal dilatation. SPLEEN: ?? Normal size. ??No focal lesions. PANCREAS: ?? No identified cystic or solid masses. No significant calcifications. No adjacent inflammation or peripancreatic fluid collections. Pancreatic duct not dilated. ?? ADRENALS: ?? Normal. KIDNEYS/URINARY TRACT: ?? Kidneys enhance symmetrically. ??No suspicious renal lesions. ??No hydronephrosis. ?Urinary bladder is unremarkable. GI: ?? Changes of prior ventral hernia repair is seen. ??Likely postsurgical changes/scarring in the subcutaneous tissues of the anterior abdominal wall are unchanged compared to prior examination. ??Likely injection granuloma in the right lower quadrant is seen. ??Stomach and small bowel are normal in course and caliber without evidence of obstruction. ??Colonic diverticulosis without evidence of acute diverticulitis. ??Colonic interposition between the right anterior abdominal wall and liver is seen. ??The appendix is normal. ?? Spinal stimulator device in the right posterior soft tissues is seen. PERITONEUM: ?? No ascites or free air. RETROPERITONEUM: ?? No mass or adenopathy. REPRODUCTIVE: ?? No significant abnormality. VASCULATURE: ?? No abdominal aortic aneurysm. MUSCULOSKELETAL: ?? No significant acute abnormality. ?? Multilevel degenerative disc disease of the lumbar spine. OTHER: ?? No other abnormality. IMPRESSION: No acute finding. Postoperative and incidental findings as described above. REFERENCE: Unless otherwise specified, no follow-up imaging [...] Findings Committee. J Am Wang Radiol. 2017 Nov;14(8):8919-0305. THIS IS AN ELECTRONICALLY VERIFIED FINAL REPORT 12/23/2021 2:21 AM - Electronically signed by ??Pb Carvalho M.D. BB: SKIP D: ??12/23/2021 2:21 AM T: ??12/23/2021 2:21 AM Report ID: [id number] Reading Location: ??[id number] Procedure Note Pb Carvalho MD PhD - 12/23/2021 EXAM DESCRIPTION: CT ABDOMEN PELVIS W CONTRAST REASON FOR STUDY: UTI, recurrent/complicated c/o generalized body aches and chills that began last week but worsenedthis morning. She states everything hurts but her head and her feet, complains of generalized achy pain all over. She denies fever at home, but endorseschills and urinary frequency. Was recently admitted to [facility] and treated for urosepsis after having a UTI that was not treated and so the infectionspread to her bone stimulator. Was treated with IV ertapenem that was d/c'd last week. She feels like she did when she had sepsis. She vomited x3 todayand has not been able to hold anything down. She is generalized abdominalpain but no flank pain. She has not documented fever but feels fever out. Her infectious disease specialist said due to her recurrent UTI she willalways need IV antibiotics. TECHNIQUE: CT scan of the abdomen and pelvis performed with intravenousand without oral contrast using helical scanning technique with dynamic intravenous contrast injection. Reconstructed coronal and sagittal MPRimages reviewed. All images stored on PACS. Automated exposure control was used as a dose optimization technique forthis examination. CONTRAST TYPE/DOSE: 100mL of IOVERSOL 350 MG IODINE/ML INTRAVENOUSSYRINGE injected via intravenous COMPARISON: 10/29/2021 FINDINGS: LOWER CHEST: Unchanged sub 5 mm pulmonary nodules in the left lower lobe compared to 10/29/2021. Recent guidelines by the Fleischner Society (Radiology 865470,2017)divides patient into low vs. high risk (for example, patients who smoke areconsidered high risk) and provides followup recommendations as follows: SOLITARY PULMONARY NODULE: Patients considered LOW RISK for lung cancerand a nodule less than 6 mm in diameter require no follow-up. In patients atHIGHER RISK, for example smokers, optional follow-up is in 1 year. MULTIPLE PULMONARY NODULES: Patients considered LOW RISK for lung cancerand multiple nodules less than 6 mm in diameter require no follow-up. Inpatients at HIGHER RISK, for example smokers, optional follow-up is in 1 year. Note: These recommendations do not apply to lung cancer screening,patients with immunosuppression, or patients with known primary cancer. http://pubs.rsna.org/doi/pdf/10.1148/radiol.9753162537 LIVER: Normal size. No identified cystic or solid masses. GALLBLADDER: Surgically absent BILE DUCTS: No intrahepatic or extrahepatic ductal dilatation. SPLEEN: Normal size. No focal lesions. PANCREAS: No identified cystic or solid masses. No significant calcifications. No adjacent inflammation or peripancreatic fluidcollections. Pancreatic duct not dilated. ADRENALS: Normal. KIDNEYS/URINARY TRACT: Kidneys enhance symmetrically. No suspiciousrenal lesions. No hydronephrosis. Urinary bladder is unremarkable. GI: Changes of prior ventral hernia repair is seen. Likely postsurgical changes/scarring in the subcutaneous tissues of the anterior abdominalwall are unchanged compared to prior examination. Likely injection granulomain the right lower quadrant is seen. Stomach and small bowel are normal in course and caliber without evidence of obstruction. Colonicdiverticulosis without evidence of acute diverticulitis. Colonic interposition betweenthe right anterior abdominal wall and liver is seen. The appendix is normal. Spinal stimulator device in the right posterior soft tissues is seen. PERITONEUM: No ascites or free air. RETROPERITONEUM: No mass or adenopathy. REPRODUCTIVE: No significant abnormality. VASCULATURE: No abdominal aortic aneurysm. MUSCULOSKELETAL: No significant acute abnormality. Multileveldegenerative disc disease of the lumbar spine. OTHER: No other abnormality. IMPRESSION: No acute finding. Postoperative and incidental findings as described above. REFERENCE: Unless otherwise specified, no follow-up imaging [...] Findings Committee. J Am Wang Radiol. 2017 Nov;14(8):3456-2684. THIS IS AN ELECTRONICALLY VERIFIED FINAL REPORT 12/23/2021 2:21 AM - Electronically signed by Pb Carvalho M.D. BB: SKIP Report ID: [id number] Reading Location: [place] [address] PROCEDURES Final Resul t * Blood culture Blood Peripheral (12/22/2021 11:55 PM CDT) Report Final Report: No growth MARY JANE PHAM Comment:Testing performed by : [facility], [address], [place]., [address] Blood (Peripheral) 12/22/2021 11:55 PM CDT 12/23/2021 3:21 AM CDT Narrative MARY JANE PHAM - 12/27/2021 7:00 AM CDT From a different site than #1. Draw Blood cultures before administration of Antibiotics 1. ?Blood cultures are incubated for 4 [...] organism identification may be performed using the Athersys Gram-Positive Blood Culture Assay. This assay detects microbial DNA in positive blood culture broth via hybridization of target DNA to capture oligonucleotides on a microarray. This assay has been cleared by the [place] Food and Drug Administration and its performance characteristics have been verified by the [facility] Microbiology Laboratory. 5. ?For questions about this culture, contact the Microbiology Laboratory at [phone]. Interpretive data was last revised on 2019. [facility] LAB MICROBIOLOGY - GENERAL OR DERABLES Final Result MARY JANE PHAM [address] [facility] Department [place] [address] * Blood culture Blood Peripheral (12/22/2021 11:53 PM CDT) Report Final Report: No growth MARY JANE PHAM Comment:Testing performed by : [facility], [address] [facility] [place]., [address] Blood (Peripheral) 12/22/2021 11:53 PM CDT 12/23/2021 3:20 AM CDT Narrative MARY JANE PHAM - 12/27/2021 7:00 AM CDT Received only aerobic blood culture bottle Draw Blood cultures before administration of Antibiotics 1. ?Blood cultures are incubated for 4 [...] organism identification may be performed using the Athersys Gram-Positive Blood Culture Assay. This assay detects microbial DNA in positive blood culture broth via hybridization of target DNA to capture oligonucleotides on a microarray. This assay has been cleared by the [place] Food and Drug Administration and its performance characteristics have been verified by the [facility]biology [facility]. 5. ?For questions about this culture, contact the Microbiology Laboratory at [phone]. Interpretive data was last revised on 2019. [facility] LAB MICROBIOLOGY - GENERAL OR DERABLES Final Result MARY JANE [address] [facility] Department [place] [address] * eGFR (12/22/2021 10:59 PM CDT) [facility] eGFR 96 mL/min/1. 73 m2 MARY JANE [...] was last reviewed 2021. Testing performed by: [address] [address] Blood 12/22/2021 10:5 9 PM CDT 12/22/2021 11:01 PM CDT us Abi[facility] LAB BLOOD ORDERABLES Final Re sult MARY JANE [address] [facility] Department [place] [address] * (ABNORMAL) Comprehensive metabolic panel (12/22/2021 10:59 PM CDT) Sodium 140 135 - 145 mmol/L MARY JANE PHAM Comment:Testing performed by : [address] [address] Potassium, pl 4.3 3.3 - 4.9 mmol/L MARY JANE PHAM Comment:Testing performed by : [address] [address] Chloride 101 97 - 110 mmol/L MARY JANE PHAM Comment:Testing performed by : [address] [address] CO2 25 22 - 32 mmol/L MARY JANE Comment:Testing performed by : [address] [address] Anion gap 14 2 - 15 mmol/L MARY JANE Comment:Testing performed by : [address] [address] BUN 16 8 - 25 mg/dL [facility] Comment:Testing performed by : [address] [address] Creatinine 0.70 0.60 - 1.10 mg/dL MARY JANE Comment:Testing performed by : [address] [address] Glucose 146 70 - 199 mg/dL [facility] Comment: Interpretive Data Fasting glucose >/= [...] was last revised 2017. Testing performed by: [address] [address] Calcium 10.6(H) 8.5 - 10.3 mg/dL [facility] Comment:Testing performed by : [address] [address] Bilirubin, total 0.4 0.1 - 1.2 mg/dL [facility] Comment:Testing performed by : [address] [address] Protein, pl 9.2(H) 6.5 - 8.5 g/dL [facility] Comment:Testing performed by : [address] [address] Albumin 4.3 3.5 - 5.0 g/dL [facility] Comment:Testing performed by : [address] [address] Alk phos 94 40 - 130 Units/L MARY JANE Comment:Testing performed by : [address] [address] ALT 17 7 - 45 Units/L MARY JANE Comment:Testing performed by : [facility], [address] [place] [address]., [address] AST 19 10 - 45 Units/L MARY JANE PHAM Comment:Testing performed by : [facility], [address] [place] [address]., [address] Blood 12/22/2021 10:5 9 PM CDT 12/22/2021 11:01 PM CDT us Abiola [facility] LAB BLOOD ORDERABLES Final Re sult MARY JANE PHAM [address] [facility] Department [place] [address] * (ABNORMAL) Urine culture Urine (12/22/2021 10:21 PM CDT) Report Final Report: Greater than or equal to 100,000 colonies/mL of Escherichia coli Greater than or equal to 100,000 colonies/mL of Proteus mirabilis Plus growth of clinically insignificant bacterial yesenia. (.) MARY JANE PHAM Comment:Testing performed by : [facility], [address] [place]., [address] Organism ESCHERICHIA COLI MARY JANE Organism PROTEUS MIRABILIS MARY JANE Organism PLUS GROWTH OF CLINICALLY INSIGNIFICANT YESENIA. MARY JANE PHAM Urine 12/22/2021 10:2 1 PM CDT 12/23/2021 1:46 AM CDT Narrative MARY JANE - 12/25/2021 10:37 AM CDT Urine culture reflexed based upon urinalysis results. Testing performed by [facility]biology [facility] ([phone]) Organism Antibiotic Method Susceptibility Escherichia coli Ampicillin [...] INTERPRETATION Susceptible Escherichia coli Cefdinir INTERPRETATION Susceptible Proteus mirabilis Ampicillin INTERPRETATION Susceptible Proteus mirabilis Cefazolin INTERPRETATION Susceptible Proteus mirabilis Nitrofurantoin INTERPRETATION Resistant Proteus mirabilis Gentamicin INTERPRETATION Susceptible Proteus mirabilis Trimethoprim with Sulfamethoxazole I NTERPRETATION Susceptible Proteus mirabilis Meropenem INTERPRETATION Susceptible Proteus mirabilis Cefepime INTERPRETATION Susceptible Proteus mirabilis Ciprofloxacin INTERPRETATION Susceptible Proteus mirabilis Ceftazidime INTERPRETATION Susceptible Proteus mirabilis Ceftriaxone INTERPRETATION Susceptible Proteus mirabilis Piperacillin/Tazobactam INTERPRETATI ON Susceptible Proteus mirabilis Cephalexin INTERPRETATION Susceptible Proteus mirabilis Cefuroxime-axetil INTERPRETATION Susceptible Proteus mirabilis Cefdinir INTERPRETATION Susceptible Kirit Everett DO LAB MICROBIOLOGY - GENERAL ORD ERABLES Final Result Performing Organization Address City/[facility]/ZIP Co de Phone Number MARY JANE [facility] [place] [address] * (ABNORMAL) Urinalysis, microscopic only (12/22/2021 10:21 PM CDT) WBC, ur 11-20(A) 0 - 5 /HPF MARY JANE Comment:Testing performed by : [address] [address] RBC, ur 3-5(A) 0 - 2 /HPF MARY JANE Comment:Testing performed by : [facility], [address] [place] [address]., [address] Mucous, ur Present(A) MARY JANE Comment:Testing performed by : [address] [address] Culture Reflex Comment Reflex to urine culture will be performed. MARY JANE Comment:Testing performed by : [address] [address] Urine 12/22/2021 10:2 1 PM CDT 12/22/2021 10:26 PM CDT Kirit Everett DO LAB URINE ORDERABLES Final Res ult Performing Organization Address City/[facility]/ZIP Co de Phone Number [place] [id number] [facility] [employer] [place], [place] [id number] * (ABNORMAL) Urinalysis reflex to microscopic and culture Urine (12/22/2021 10:21 PM CDT) Color, ur Yellow Yellow MARY JANE Comment:Testing performed by : [address], [place]., [address] Clarity, ur Clear Clear MARY JANE Comment:Testing performed by : [address], [place]., [address] Specific gravity, ur 1.020 1.003 - 1.030 MARY JANE Comment:Testing performed by : [address], [place]., [address] pH, urine 5.0 MARY JANE Comment:Testing performed by : [address] [address] Protein, ur ql Negative Negative MARY JANE Comment:Testing performed by : [address], [place]., [address] Glucose, ur ql Negative Negative MARY JANE Comment:Testing performed by : [address], [place]., [address] Ketones, ur Trace Negative MARY JANE Comment:Testing performed by : [address] [address] Bilirubin, ur Negative Negative MARY JANE Comment:Testing performed by : [address], [place]., [address] Blood, ur 2+(A) Negative MARY JANE Comment:Testing performed by : [address] [address] Urobilinogen, ur 0.2 <2.0 mg/dL MARY JANE Comment:Testing performed by : [address] [address] Nitrite, ur Positive(A) Negative MARY JANE Comment:Testing performed by : [address] [address] Leukocyte esterase, ur Trace(A) Negative MARY JANE Comment:Testing performed by : [address], [place]., [address] UA reflex comment Reflex to microscopic UA will be performed. MARY JANE Comment:Testing performed by : [address] [address] Urine 12/22/2021 10:2 1 PM CDT 12/22/2021 10:26 PM CDT Johnathan PHAM - 12/22/2021 10:42 PM CDT If patient unable to urinate, straight cath Urine pH is affected by diet, medications, systemic acid-base disturbances, and renal tubular function. ??pH may affect urinary stone formation. ??For example, urine pH below 6.0 may help reduce the tendency for calcium phosphate stones and pH greater than 6.0 may reduce the tendency for uric acid stone formation. Source: Jerez Incont. Last revised 05-04-2017 us Kirit Everett DO LAB MICROBIOLOGY - GENERAL ORD ERABLES Final Result MARY JANE [address] [facility] [place] [address] * Differential, auto (12/22/2021 7:53 PM CDT) Neutrophil abs 6.0 1.7 - 6.5 K/cumm MARY JANE Comment:Testing performed by : [address] [address] Imm gran abs 0.0 0.0 - 0.1 K/cumm MARY JANE Comment:Testing performed by : [address] [address] Lymphocyte abs 2.9 0.8 - 3.3 K/cumm MARY JANE Comment:Testing performed by : [address] [address] Monocyte abs 0.8 0.2 - 0.8 K/cumm MARY JANE Comment:Testing performed by : [address] [address] Eosinophil abs 0.3 0.0 - 0.5 K/cumm MARY JANE Comment:Testing performed by : [address] [address] Basophil abs 0.1 0.0 - 0.1 K/cumm MARY JANE Comment:Testing performed by : [address] [address] Neutrophil pct 59.8 % [facility] Comment: Interpretive Data Percent cell count reference ranges are not reported, since discordance with absolute values may lead to misinterpretation of CBC data. Current Interpretive Data was last revised on 2017. Testing performed by: [address] [address] Imm gran pct 0.3 % [facility] Comment: Interpretive Data Percent cell count reference ranges are not reported, since discordance with absolute values may lead to misinterpretation of CBC data. Current Interpretive Data was last revised on 2017. Testing performed by: [address] [address] Lymphocyte pct 28.4 % [facility] Comment: Interpretive Data Percent cell count reference ranges are not reported, since discordance with absolute values may lead to misinterpretation of CBC data. Current Interpretive Data was last revised on 2017. Testing performed by: [address] [address] Monocyte pct 7.8 % [facility] Comment: Interpretive Data Percent cell count reference ranges are not reported, since discordance with absolute values may lead to misinterpretation of CBC data. Current Interpretive Data was last revised on 2017. Testing performed by: [address] [address] Eosinophil pct 3.2 % [facility] Comment: Interpretive Data Percent cell count reference ranges are not reported, since discordance with absolute values may lead to misinterpretation of CBC data. Current Interpretive Data was last revised on 2017. Testing performed by: [address] [address] Basophil pct 0.5 % [facility] Comment: Interpretive Data Percent cell count reference ranges are not reported, since discordance with absolute values may lead to misinterpretation of CBC data. Current Interpretive Data was last revised on 2017. Testing performed by: [address] [address] Blood 12/22/2021 7:53 PM CDT 12/22/2021 8:03 PM CDT Kirit Everett DO LAB BLOOD ORDERABLES Final Res ult MARY JANE [facility] [place] [address] * Influenza A/B, RSV, and COVID-19 PCR Nasopharyngeal (12/22/2021 7:53 PM CDT) COVID-[address] Negative [address] [facility] Comment:Testing performed by : [address] [address] Influenza A RNA Negative Negative [facility] Comment:Testing performed by : [address] [address] Influenza B RNA Negative Negative [facility] Comment:Testing performed by : [address] [address] RSV RNA Negative Negative [facility] Comment: Interpretive data: This test is performed using the Start[employer] Xpress CoV-2/Flu/RSV plus assay. This is a [...] Data last revised 2021. Testing performed by: [address] [address] Nasopharyngeal 12/22/2021 7: 53 PM CDT 12/22/2021 8:03 PM CDT Narrative MARY JANE - 12/22/2021 9:02 PM CDT Is the Patient experiencing symptoms consistent with COVID?->Yes Date of Symptom Onset->12/21/21 Reason for testing?->Symptomatic Kirit Everett DO LAB MICROBIOLOGY - GENERAL ORD ERABLES Final Result MARY JANE [address] [facility] [place] [address] * Sepsis Lactate w/ Reflex (12/22/2021 7:53 PM CDT) Pathologist [facility] Sepsis Lactate 1.5 0.7 - 2.0 mmol/L MARY JANE Comment:Testing performed by : [address] [address] Blood 12/22/2021 7:53 PM CDT 12/22/2021 8:03 PM CDT us Kirit Everett DO LAB BLOOD ORDERABLES Final Res ult MARY JANE [address] [facility] [place] [address] * (ABNORMAL) CBC with auto differential (12/22/2021 7:53 PM CDT) Pathologist [facility] WBC 10.0(H) 3.8 - 9.9 K/cumm MARY JANE Comment:Testing performed by : [address] [address] Hgb 13.6 11.9 - 15.5 g/dL MARY JANE Comment:Testing performed by : [address] [address] Hct 42.4 35.6 - 45.5 % MARY JANE Comment:Testing performed by : [address] [address] Plt 324 150 - 400 K/cumm MARY JANE Comment:Testing performed by : [address] [address] MPV 9.8 9.1 - 12.3 fL MARY JANE Comment:Testing performed by : [address] [address] RBC 4.64 3.90 - 5.20 M/cumm MARY JANE PHAM Comment:Testing performed by : [address] [address] MCV 91.4 81.3 - 96.4 fL MARY JANE Comment:Testing performed by : [address] [address] MCH 29.3 27.1 - 33.3 pg MARY JANE PHAM Comment:Testing performed by : [facility], [address] [place] [address]., [address] MCHC 32.1(L) 32.3 - 35.7 g/dL MARY JANE PHAM Comment:Testing performed by : [facility], [address] [place] [address]., [address] RDW CV 13.7 11.1 - 14.9 % MARY JANE PHAM Comment:Testing performed by : [address] [address] RDW SD 45.2 35.7 - 48.1 fL MARY JANE PHAM Comment:Testing performed by : [address] [address] NRBC abs 0.00 0.00 - 0.01 K/cumm MARY JANE PHAM Comment:Testing performed by : [facility], [address] [place] [address]., [address] Blood 12/22/2021 7:53 PM CDT 12/22/2021 8:03 PM CDT Kirit Everett DO LAB BLOOD ORDERABLES Final Res ult MARY JANE PHAM [address] [facility] [place] [address] documented in this encounter Visit Diagnoses Diagnosis 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)- Primary 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) Nausea and vomiting, unspecified vomiting type Chills Chills (without fever) Body aches Generalized pain Spinal cord stimulator status Dyslipidemia Other and unspecified hyperlipidemia Essential hypertension Unspecified essential hypertension History of pulmonary embolism Personal history of venous thrombosis and embolism History of DVT (deep vein thrombosis) Chronic anticoagulation Encounter for long-term (current) use of anticoagulants Type 2 diabetes mellitus with neurologic complication, without long-term current use of insulin (CMS/HCC) (HCC) documented in this encounter Admitting Diagnoses Diagnosis 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) documented in this encounter Administered Medications Inactive Administered Medications - up to 3 most recent administrations Medication Order MAR Action Action Date Dose Rate Site acetaminophen (TYLENOL) tablet 650 mg 650 mg, oral, Every 4 hours PRN, 1st line for pain, fever, Starting on Valeri 12/23/21 at 0732, Administer if patient can swallow tablets., Indications: Fever, PainIndications:Fever,Pain Given 12/23/2021 7:41 AM CDT 650 mg Head acetaminophen (TYLENOL) tablet 650 mg 650 mg, oral, Every 4 hours PRN, fever, headaches, fever greater than 38.3 C, Starting on Valeri 12/23/21 at 0951, Indications: Fever, PainIndications:Fever,Pain Given 12/24/2021 8:55 PM CDT 650 mg Given 12/23/2021 3:14 PM CDT 650 mg amitriptyline (ELAVIL) tablet 25 mg 25 mg, oral, Nightly, First dose on Valeri 12/23/21 at 2100 Given 12/25/2021 8:08 PM CDT 25 mg Given 12/24/2021 8:55 PM CDT 25 mg Given 12/23/2021 8:42 PM CDT 25 mg Carrier Fluids for Secondary Infusion - 0.9% Sodium Chloride 30 mL, intravenous, As needed, For priming tubing and/or flushing, Starting on Valeri 12/23/21 at 0945, 0-250 ml/hr to flush line after IV [...] UNABLE to swallow/take PO glucose/juice., Starting on Valeri 12/23/21 at 0733, After treatment for hypoglycemia, recheck BG followed by treatment every 15 minutes until the BG is greater than 100 mg/dL. Then check BG 1 hour post treatment. If BG is less than 100 mg/dL, repeat Q15 minute BG checks and treatment. Call MD for each episode of hypoglycemia., Indications: hypoglycemic disorderIndications:hypoglycemic disorder dextrose gel in packet 15 g 15 g, oral, Every 15 min PRN, low blood sugar, blood glucose less than 70 mg/dL, Starting on Valeri 12/23/21 at 0733, If patient is alert and able to [...] episode of hypoglycemia., Indications: hypoglycemic disorderIndications:hypoglycemic disorder ertapenem (INVanz) 1,000 mg in sodium chloride 0.9% 100 mL IVPB 1,000 mg, intravenous, at 200 mL/hr, Administer over 30 Minutes, Every 24 hours, First dose on Valeri 12/23/21 at 0900, Do not mix with dextrose or other medications. Mini-bag Plus, Indications: Urinary Tract/Genitourinary InfectionIndications:Urinary Tract/Genitourinary Infection New Bag 12/26/2021 9:30 AM CDT 1,000 mg 2 00 mL/hr New Bag 12/25/2021 8:31 AM CDT 1,000 mg 200 mL/hr New Bag 12/24/2021 8:40 AM CDT 1,000 mg 200 mL/hr glucagon injection 1 mg 1 mg, intramuscular, Every 30 min PRN, low blood sugar, blood glucose less than 70 mg/dL AND no IV access AND unable to take PO glucose/juice., Starting on Valeri 12/23/21 at 0733, After Glucagon is administered, position patient on [...] SWFI. Use immediately following reconstitution. HYDROcodone-acetaminophen (NORCO) 7.5-325 mg per tablet 1 tablet 1 tablet, oral, Every 6 hours PRN, 2nd line for pain, Starting on 12/25/21 at 1404, Indications: PainIndications:Pain Given 12/26/2021 12:47 PM CDT 1 tablet Other (Comment) Given 12/26/2021 4:11 AM CDT 1 tablet Given 12/25/2021 10:00 PM CDT 1 tablet insulin glargine (LANTUS, SEMGLEE) 100 unit/mL injection 20 Units 20 Units (rounded from 20.055 Units = 0.15 Units/kg ? 133.7 kg), subcutaneous, Nightly, First dose on Mon12/23/21 at 2100, Do not hold if NPO. Do not mix with other insulins, Indications: Diabetes MellitusIndications:Diabetes Mellitus Given 12/25/2021 8:08 PM CDT 20 Units Left Lower Abdomen Given 12/24/2021 8:55 PM CDT 20 Units Ri ght Lower Abdomen Given 12/23/2021 8:42 PM CDT 20 Units Le ft Lower Abdomen insulin lispro (HumaLOG, ADMELOG) 100 unit/mL injection 0-4 Units 0-4 Units, subcutaneous, Nightly, First dose on Mon12/23/21 at 2100, Blood glucose mg/dL: 199 or [...] times daily with meals, First dose on Mon12/23/21 at 0815, Blood glucose mg/dL: 149 or less: No [...] NPO Status, Indications: Diabetes MellitusIndications:Diabetes Mellitus Given 12/26/2021 9:02 AM CDT 1 Units Left Lower Abdomen Given 12/25/2021 8:02 AM CDT 1 Units Le ft Lower Abdomen Given 12/24/2021 5:44 PM CDT 1 Units Le ft Lower Abdomen insulin lispro (HumaLOG, ADMELOG) 100 unit/mL injection 7 Units 7 Units (rounded from 6.685 Units = 0.05 Units/kg ? 133.7 kg), subcutaneous, 3 times daily with meals, First dose on Valeri 12/23/21 at 0815, If BG greater than or equal to 100 mg/dL, give dose with meals when tray arrives in the room. If BG less than 100 mg/dL or history of poor intake, give after meals. If patient eating less than 50% of meal, call MD for holding or reducing meal insulin dose. Hold prandial insulin if NPO, unable to eat, or if BG less than 70 mg/dL., Indications: Diabetes MellitusIndications:Diabetes Mellitus Given 12/26/2021 12:47 PM CDT 7 Units Left Lower Abdomen Given 12/26/2021 9:02 AM CDT 7 Units Le ft Lower Abdomen Given 12/25/2021 6:12 PM CDT 7 Units Le ft Upper Abdomen ioversoL (OPTIRAY 350) syringe 100 mL 100 mL, intravenous, Once in imaging, contrast, Starting on Mon12/22/21 at 2337, For 1 dose Contrast Given 12/23/2021 12:55 AM CDT 100 mL meropenem (MERREM) 2,000 mg in sodium chloride 0.9% 100 mL IVPB 2,000 mg, intravenous, at 280 mL/hr, Administer over 30 Minutes, Once, On Mon12/22/21 at 2345, For 1 dose, Indications: Abdominal/Pelvic InfectionIndications:Ab dominal/Pelvic Infection New Bag 12/23/2021 12:23 AM CDT 2,000 mg 280 mL/hr morphine injection 2 mg 2 mg, intravenous, Administer over 4 Minutes, Every 3 hours PRN, 2nd line for pain, or if unable to tolarte po, Starting on Valeri 12/23/21 at 0952, May repeat in 30 minutes if pain is uncontrolled or increasing. Max 2 doses within 1 dosing interval., Indications: PainIndications:Pain Given 12/25/2021 9:18 AM CDT 2 mg Other (Comment) Given 12/25/2021 2:50 AM CDT 2 mg Given 12/24/2021 10:11 PM CDT 2 mg morphine injection 4 mg 4 mg, intravenous, Administer over 4 Minutes, Once, On Mon12/22/21 at 2357, For 1 dose Given 12/23/2021 12:00 AM CDT 4 mg morphine injection 4 mg 4 mg, intravenous, Administer over 4 Minutes, Once, On Mon12/23/21 at 0143, For 1 dose Given 12/23/2021 1:47 AM CDT 4 mg ondansetron (ZOFRAN) injection 4 mg 4 mg, intravenous, Administer over 2 Minutes, Once, On Mon12/22/21 at 2208, For 1 dose Given 12/22/2021 10:09 PM CDT 4 mg ondansetron (ZOFRAN) injection 4 mg 4 mg, intravenous, Administer over 2 Minutes, Once, On Mon12/23/21 at 0143, For 1 dose Given 12/23/2021 1:47 AM CDT 4 mg ondansetron (ZOFRAN) injection 4 mg 4 mg, intravenous, Administer over 2 Minutes, Every 6 hours PRN, nausea, vomiting, if not tolerating PO, Starting on Mon12/23/21 at 0948, Indications: Nausea and VomitingIndications:Nausea and Vomiting Given 12/25/2021 8:01 AM CDT 4 mg Given 12/24/2021 3:15 PM CDT 4 mg ondansetron ODT (ZOFRAN-ODT) disintegrating tablet 4 mg 4 mg, oral, Every 6 hours PRN, nausea, vomiting, Starting on Mon12/23/21 at 0948, Indications: Nausea and VomitingIndications:Nausea and Vomiting oxybutynin (DITROPAN) tablet 5 mg 5 mg, oral, 2 times daily, First dose on Mon12/23/21 at 1130 Given 12/26/2021 9:02 AM CDT 5 mg Given 12/25/2021 8:08 PM CDT 5 mg Given 12/25/2021 8:05 AM CDT [address] (PROTONIX) extended release tablet 40 mg 40 mg, oral, 2 times daily, First dose on Mon12/23/21 at 1130, Do not crush, chew, cut, dissolve, open or otherwise manipulate tablet/capsule., Indications: Treatment of Non-Bleeding Gastric DisorderIndications:Treatment of Non-Bleeding Gastric Disorder Given 12/26/2021 9:02 AM CDT 40 mg Given 12/25/2021 8:08 PM CDT 40 mg Given 12/25/2021 8:05 AM CDT 40 mg rivaroxaban (XARELTO) tablet 20 mg 20 mg, oral, Daily, First dose on Mon12/23/21 at 1130, Nurse to discontinue heparin infusion order and associated bolus at first administration of rivaroxaban using 'order condition met' order source. If patient is eating, administer doses of 15 mg or greater with food. If patient is not eating, still administer dose unless instructed differently by provider. , Indications: Venous ThrombosisIndications:Venous Thrombosis Given 12/26/2021 9:02 AM CDT 20 m g Given 12/25/2021 8:05 AM CDT 20 mg Given 12/24/2021 8:33 AM CDT 20 mg rOPINIRole (REQUIP) tablet 5 mg 5 mg, oral, Nightly, First dose on Mon12/23/21 at 2100 Given 12/25/2021 8:08 PM CDT 5 mg Given 12/24/2021 8:55 PM CDT 5 mg Given 12/23/2021 8:42 PM CDT 5 mg sodium chloride 0.9% bolus 1,000 mL 1,000 mL, intravenous, at 1,000 mL/hr, Administer over 1 Hours, Once, On Mon12/22/21 at 2243, For 1 dose New Bag 12/22/2021 10:50 PM CDT 1,000 mL 1000 mL/hr sodium chloride 0.9% bolus 1,000 mL 1,000 mL, intravenous, Once, On Mon12/23/21 at 0012, For 1 dose New Bag 12/23/2021 12:22 AM CDT 1,000 mL sodium chloride 0.9% flush 0.5-20 mL 0.5-20 mL, intra-catheter, Every 8 hours scheduled, First dose on Mon12/23/21 at 1400, Flush volume based on line type and size. Given 12/26/2021 4:17 AM CDT 10 mL Given 12/25/2021 8:09 PM CDT 10 mL Given 12/25/2021 3:01 PM CDT 10 mL sodium chloride 0.9% flush 0.5-20 mL 0.5-20 mL, intra-catheter, As needed, line care, Starting on Mon12/23/21 at 0945, Flush volume based on line type and size. Flush before and after each use. sodium chloride 0.9% flush 50 mL 50 mL, intravenous, Once in imaging, line care, Starting on Valeri 12/23/21 at 0105, For 1 dose Given 12/23/2021 12:55 AM CDT 50 mL sodium chloride 0.9% infusion 100 mL/hr, intravenous, Continuous, Starting on Valeri 12/23/21 at 1030, And 1 L only. Discontinue IVF after bag is complete New Bag 12/24/2021 8:33 AM CDT 100 mL/hr 100 mL/hr New Bag 12/23/2021 11:02 PM CDT 100 mL/hr 100 mL/hr New Bag 12/23/2021 10:55 AM CDT 100 mL/hr 100 mL/hr documented in this encounter Historical Medications * This list may reflect changes made after this encounter. nystatin powder Apply 1 application topically daily 11/09/2021 3 added in this encounter Active and Recently Administered Medications Times are shown in CDT. Scheduled Medication Order 12/24/2021 12/25/2021 12/26/2021 amitriptyline (ELAVIL) tablet 25 mg 25 mg, oral, Nightly, First dose on Mon12/23/21 at 2100 2055 (Given - Provider: Sara Alejo, NURIS) 2007 (Given - Provider: Sara Alejo, RN) ertapenem (INVanz) 1,000 mg in sodium chloride 0.9% 100 mL IVPB 1,000 mg, intravenous, at 200 mL/hr, Administer over 30 Minutes, Every 24 hours, First dose on Mon12/23/21 at 0900, Do not mix with dextrose or other medications. Mini-bag Plus, Indications: Urinary Tract/Genitourinary Infection 0840 (New Bag - Provider: Shayna Swift RN) 0831 (New Bag - Provider: Farzaneh Valero, RN) 0930 (New Bag - Provider: Farzaneh Valero, RN) insulin glargine (LANTUS, SEMGLEE) 100 unit/mL injection 20 Units 20 Units (rounded from 20.055 Units = 0.15 Units/kg ? 133.7 kg), subcutaneous, Nightly, First dose on Valeri 12/23/21 at 2100, Do not hold if NPO. Do not mix with other insulins, Indications: Diabetes Mellitus 2054 (Given - Provider: Sara Alejo RN) 2007 (Given - Provider: Sara Alejo RN) insulin lispro (HumaLOG, ADMELOG) 100 unit/mL injection 0-4 Units 0-4 Units, subcutaneous, Nightly, First dose on Valeri 12/23/21 at 2100, Blood glucose mg/dL: 199 or less: No insulin 200-249: add 1 unit 250-299: add 2 units 300-349: add 3 units and notify physician for adjustment of insulin orders. 350-399: add 4 units and notify physician for adjustment of insulin orders. Over 400: Notify physician for adjustment of insulin orders. Do NOT hold for NPO Status, Indications: Diabetes Mellitus 1955 (Not Given - Provider: Sara Alejo RN - Reason: Order parameters not met) 2002 (Not Given - Provider: Sara Alejo RN - Reason: Order parameters not met) insulin lispro (HumaLOG, ADMELOG) 100 unit/mL injection 0-5 Units 0-5 Units, subcutaneous, 3 times daily with meals, First dose on Valeri 12/23/21 at 0815, Blood glucose mg/dL: 149 or less: No insulin 150-199: add 1 unit 200-249: add 2 units 250-299: add 3 units 300-349: add 4 units and notify physician for adjustment of insulin orders. 350-399: add 5 units and notify physician for adjustment of insulin orders. Over 400: Notify physician for adjustment of insulin orders. Do NOT hold for NPO Status, Indications: Diabetes Mellitus 0833 (Not Given - Provider: Shayna Swift RN - Reason: Order parameters not met)1217 (Not Given - Provider: Shayna Swift RN - Reason: Order parameters not met)1744 (Given - Provider: Shayna Swift RN) 0802 (Given - Provider: Farzaneh Valero, RN)1204 (Not Given - Provider: Farzaneh Valero RN - Reason: Order parameters not met)1813 (Not Given - Provider: Farzaneh Valero RN - Reason: Other - Comment: POC BS has not gone through in computer. PCT said BS was in the 150s. Pt has already eaten.) 0902 (Given - Provider: Farzaneh Valero RN)1226 (Not Given - Provider: Farzaneh Valero RN - Reason: Order parameters not met) insulin lispro (HumaLOG, ADMELOG) 100 unit/mL injection 7 Units 7 Units (rounded from 6.685 Units = 0.05 Units/kg ? 133.7 kg), subcutaneous, 3 times daily with meals, First dose on Mon12/23/21 at 0815, If BG greater than or equal to 100 mg/dL, give dose with meals when tray arrives in the room. If BG less than 100 mg/dL or history of poor intake, give after meals. If patient eating less than 50% of meal, call MD for holding or reducing meal insulin dose. Hold prandial insulin if NPO, unable to eat, or if BG less than 70 mg/dL., Indications: Diabetes Mellitus 0832 (Given - Provider: Shayna Swift RN)1232 (Given - Provider: Shayna Swift RN)1744 (Given - Provider: Shayna Swift RN) 0802 (Given - Provider: Farzaneh Valero RN)1231 (Given - Provider: Farzaneh Valero RN)1812 (Given - Provider: Farzaneh Valero RN) 0902 (Given - Provider: Farzaneh Valero RN)1247 (Given - Provider: Farzaneh Valero RN) oxybutynin (DITROPAN) tablet 5 mg 5 mg, oral, 2 times daily, First dose on Valeri 12/23/21 at 1130 0833 (Given - Provider: Shayna Swift RN)2055 (Given - Provider: Sara Alejo, NURIS) 0805 (Given - Provider: Farzaneh Valero RN)2007 (Given - Provider: Sara Alejo RN) 0902 (Given - Provider: Farzaneh Valero RN) pantoprazole DR (PROTONIX) extended release tablet 40 mg 40 mg, oral, 2 times daily, First dose on Valeri 12/23/21 at 1130, Do not crush, chew, cut, dissolve, open or otherwise manipulate tablet/capsule., Indications: Treatment of Non-Bleeding Gastric Disorder 832 (Given - Provider: Shayna Swift RN)2054 (Given - Provider: Sara Alejo RN) 804 (Given - Provider: Farzaneh Valero, NURIS)2007 (Given - Provider: Sara Alejo RN) 901 (Given - Provider: Farzaneh Valero RN) rivaroxaban (XARELTO) tablet 20 mg 20 mg, oral, Daily, First dose on Valeri 12/23/21 at 1130, Nurse to discontinue heparin infusion order and associated bolus at first administration of rivaroxaban using 'order condition met' order source. If patient is eating, administer doses of 15 mg or greater with food. If patient is not eating, still administer dose unless instructed differently by provider. , Indications: Venous Thrombosis 832 (Given - Provider: Shayna Swift RN) 804 (Given - Provider: Farzaneh Valero RN) 901 (Given - Provider: Farzaneh Valero, NURIS) rOPINIRole (REQUIP) tablet 5 mg 5 mg, oral, Nightly, First dose on Valeri 12/23/21 at 2100 2054 (Given - Provider: Sara Alejo RN) 2007 (Given - Provider: Sara Alejo RN) sodium chloride 0.9% flush 0.5-20 mL(Linked Group 1) 0.5-20 mL, intra-catheter, Every 8 hours scheduled, First dose on Valeri 12/23/21 at 1400, Flush volume based on line type and size. 0555 (Not Given - Provider: Sara Alejo RN - Reason: Other - Comment: continuous fluids running)1302 (Not Given - Provider: Shayna Swift RN - Reason: IV Infusing)2100 (Given - Provider: Sara Alejo RN) 0722 (Not Given - Provider: Sara Alejo RN - Reason: Other)1501 (Given - Provider: Farzaneh Valero, NURIS)2008 (Given - Provider: Sara Alejo, NURIS) 0417 (Given - Provider: Sara Alejo RN)1400 (Due) Continuous Medication Order 12/24/2021 12/25/2021 12/26/2021 sodium chloride 0.9% infusion (CANCELED) 100 mL/hr, intravenous, Continuous, Starting on Valeri 12/23/21 at 1030, And 1 L only. Discontinue IVF after bag is complete 0833 (New Bag - Provider: Shayna Swift RN)2100 (Stopped - Provider: Sara Alejo, NURIS) PRN Medication Order 12/24/2021 12/25/2021 12/26/2021 acetaminophen (TYLENOL) tablet 650 mg 650 mg, oral, Every 4 hours PRN, fever, headaches, fever greater than 38.3 C, Starting on Valeri 12/23/21 at 0951, Indications: Fever, Pain 2054 (Given - Provider: Sara Alejo RN)2099 (Not Given - Provider: Sara Alejo RN - Reason: Other - Comment: duplicate) bisacodyL (DULCOLAX) suppository 10 mg 10 mg, rectal, Daily PRN, constipation, If no results 24 hours after polyethylene glycol (MIRALAX). May give bisacodyl tablet if tolerating PO., Starting on Valeri 12/23/21 at 0732, Indications: constipation bisacodyl EC (DULCOLAX EC) tablet 10 mg 10 mg, oral, Daily PRN, constipation, If no results 24 hours after polyethylene glycol (MIRALAX). May give bisacodyl supp if not tolerating PO), Starting on Valeri 12/23/21 at 0732, Do not crush, chew, cut, dissolve, open or otherwise manipulate tablet/capsule., Indications: constipation Carrier Fluids for Secondary Infusion - 0.9% Sodium Chloride(Linked Group 1) 30 mL, intravenous, As needed, For priming tubing and/or flushing, Starting on Valeri 12/23/21 at 0945, 0-250 ml/hr to flush line after IV infusions when no maintenance IV ordered. Infuse 30mL at the same rate as the secondary infusion. Run as primary IV, not intended for KVO. dextrose (D10W) 10% bolus 250 mL(Linked Group 2) 250 mL, intravenous, at 1,000 mL/hr, Administer over 15 Minutes, Every 15 min PRN, blood glucose less than 70 mg/dL and UNABLE to swallow/take PO glucose/juice., Starting on Valeri 12/23/21 at 0733, After treatment for hypoglycemia, recheck BG followed by treatment every 15 minutes until the BG is greater than 100 mg/dL. Then check BG 1 hour post treatment. If BG is less than 100 mg/dL, repeat Q15 minute BG checks and treatment. Call MD for each episode of hypoglycemia., Indications: hypoglycemic disorder dextrose gel in packet 15 g(Linked Group 2) 15 g, oral, Every 15 min PRN, low blood sugar, blood glucose less than 70 mg/dL, Starting on Valeri 12/23/21 at 0733, If patient is alert and able to [...] each episode of hypoglycemia., Indications: hypoglycemic disorder glucagon injection 1 mg 1 mg, intramuscular, Every 30 min PRN, low blood sugar, blood glucose less than 70 mg/dL AND no IV access AND unable to take PO glucose/juice., Starting on Valeri 12/23/21 at 0733, After Glucagon is administered, position patient on [...] Use immediately following reconstitution. HYDROcodone-acetaminophe n (NORCO) 7.5-325 mg per tablet 1 tablet 1 tablet, oral, Every 6 hours PRN, 2nd line for pain, Starting on 12/25/21 at 1404, Indications: Pain 1500 (Given - Provider: Farzaneh Valero RN - Comment: generalized)2200 (Given - Provider: Sara Alejo RN) 0411 (Given - Provider: Sara Alejo RN)1247 (Given - Provider: Farzaneh Valero RN - Comment: back) lidocaine viscous (XYLOCAINE) 2 % solution 5-10 mL 5-10 mL, oral, Every 4 hours PRN, sorethroat, Starting on Valeri 12/23/21 at 0943 morphine injection 2 mg (CANCELED) 2 mg, intravenous, Administer over 4 Minutes, Every 3 hours PRN, 2nd line for pain, or if unable to tolarte po, Starting on Valeri 12/23/21 at 0952, May repeat in 30 minutes if pain is uncontrolled or increasing. Max 2 doses within 1 dosing interval., Indications: Pain 0327 (Given - Provider: Sara Alejo RN)0633 (Given - Provider: Sara Alejo RN)1115 (Given - Provider: Shayna Swift RN)1851 (Given - Provider: Shayna Swift RN)2211 (Given - Provider: Sara Alejo RN) 0250 (Given - Provider: Sara Alejo RN)0918 (Given - Provider: Farzaneh Valero RN - Comment: generalized) ondansetron (ZOFRAN) injection 4 mg(Linked Group 3) 4 mg, intravenous, Administer over 2 Minutes, Every 6 hours PRN, nausea, vomiting, if not tolerating PO, Starting on Valeri 12/23/21 at 0948, Indications: Nausea and Vomiting 1515 (Given - Provider: Shayna Swift RN) 0801 (Given - Provider: Farzaneh Valero RN) ondansetron ODT (ZOFRAN-ODT) disintegrating tablet 4 mg(Linked Group 3) 4 mg, oral, Every 6 hours PRN, nausea, vomiting, Starting on Valeri 12/23/21 at 0948, Indications: Nausea and Vomiting 1515 (See Alternative - Provider: Shayna Swift RN) 0801 (See Alternative - Provider: Farzaneh Valero RN) polyethylene glycol (MIRALAX) packet 17 g 17 g, oral, Daily PRN, constipation, Starting on Valeri 12/23/21 at 0732, Indications: constipation ramelteon (ROZEREM) tablet 8 mg 8 mg, oral, Nightly PRN, sleep, Starting on Mon12/23/21 at 0732, Indications: Sleep-Onset Insomnia sodium chloride 0.9% flush 0.5-20 mL(Linked Group 1) 0.5-20 mL, intra-catheter, As needed, line care, Starting on Valeri 12/23/21 at 0945, Flush volume based on line type and size. Flush before and after each use. Linked Groups Order Group 1: Saline lock IV (CANCELED) Routine, Once (Routine), On Valeri 12/23/21 at 0946, For 1 occurrence And sodium chloride 0.9% flush 0.5-20 mLJump to med 0.5-20 mL, intra-catheter, Every 8 hours scheduled, First dose on Valeri 12/23/21 at 1400, Flush volume based on line type and size. And sodium chloride 0.9% flush 0.5-20 mLJump to med 0.5-20 mL, intra-catheter, As needed, line care, Starting on [facility] 12/23/21 at 0945, Flush volume based on line type and size. Flush before and after each use. And Carrier Fluids for Secondary Infusion - 0.9% Sodium ChlorideJump to med 30 mL, intravenous, As needed, For priming tubing and/or flushing, Starting on Valeri 12/23/21 at 0945, 0-250 ml/hr to flush line after IV infusions when no maintenance IV ordered. Infuse 30mL at the same rate as the secondary infusion. Run as primary IV, not intended for KVO. Group 2: dextrose gel in packet 15 gJump to med 15 g, oral, Every 15 min PRN, low blood sugar, blood glucose less than 70 mg/dL, Starting on Valeri 12/23/21 at 0733, If patient is alert and able to [...] each episode of hypoglycemia., Indications: hypoglycemic disorder Or dextrose (D10W) 10% bolus 250 mLJump to med 250 mL, intravenous, at 1,000 mL/hr, Administer over 15 Minutes, Every 15 min PRN, blood glucose less than 70 mg/dL and UNABLE to swallow/take PO glucose/juice., Starting on Valeri 12/23/21 at 0733, After treatment for hypoglycemia, recheck BG followed by treatment every 15 minutes until the BG is greater than 100 mg/dL. Then check BG 1 hour post treatment. If BG is less than 100 mg/dL, repeat Q15 minute BG checks and treatment. Call MD for each episode of hypoglycemia., Indications: hypoglycemic disorder Group 3: ondansetron ODT (ZOFRAN-ODT) disintegrating tablet 4 mgJump to med 4 mg, oral, Every 6 hours PRN, nausea, vomiting, Starting on Valeri 12/23/21 at 0948, Indications: Nausea and Vomiting Or ondansetron (ZOFRAN) injection 4 mgJump to med 4 mg, intravenous, Administer over 2 Minutes, Every 6 hours PRN, nausea, vomiting, if not tolerating PO, Starting on Valeri 12/23/21 at 0948, Indications: Nausea and Vomiting documented in this encounter Orders Medications Ordered That Tyler ht Not Have Been Administered Count Last Ordered Date First Ordered Date acetaminophen (TYLENOL) 32 m g/mL oral solution 650 mg 1 12/23/2021 acetaminophen (TYLENOL) suppository 650 mg 1 12/23/2021 bisacodyL (DULCOLAX) suppository 10 mg 1 bisacodyl EC (DULCOLAX EC) tablet 10 mg 1 0 12/23/2021 Carrier Fluids for Secondary Infusion - 0.9% Sodium Chloride 1 12/23/2021 dextrose (D10W) 10% bolus 250 mL 12/24/19 dextrose gel in packet 15 g 1 12/23/2021 glucagon injection 1 mg 1 12/23/2021 insulin lispro (HumaLOG, ADM ELOG) 100 unit/mL injection 0-4 Units 1 12/23/2021 lidocaine viscous (XYLOCAINE ) 2 % solution 5-10 mL 1 12/23/2021 ondansetron (ZOFRAN) injection 4 mg 1 12/23 ondansetron ODT (ZOFRAN-ODT) disintegrating tablet 4 mg 2 12/23/2021 polyethylene glycol (MIRALAX) packet 17 g 1 12/23/2021 ramelteon (ROZEREM) tablet 8 mg 1 sodium chloride 0.9% flush 0.5-20 mL 1 04/2021 Lab Orders Without Results Count Last Ordered D ate First Ordered Date POCT GLUCOSE DEVICE 3 12/23/2021 12/23/19 22 Diet Count Last Ordered Date First Orde red Date ADULT DISCHARGE DIET 1 12/26/2021 Nursing Count Last Ordered Date First Orde red Date DISCHARGE ACTIVITY 1 12/26/2021 DISCHARGE CALL PROVIDER 7 12/26/2021 DISCHARGE INSTRUCTIONS 1 12/26/2021 FOLLOW UP WITH ESTABLISHED PROVIDER 1 12/26 CHECK WITH MD 1 12/22/2021 MISCELLANEOUS NURSING CARE ORDER (SPECIFY) 2 12/22/2021 Consult Count Last Ordered Date First Orde red Date IP CONSULT TO SPIRITUAL CARE 1 12/23/2021 IV Count Last Ordered Date First Orde red Date SALINE LOCK IV 1 12/22/2021 Admission Count Last Ordered Date First Orde red Date ADMIT TO INPATIENT 1 12/23/2021 Discharge Count Last Ordered Date First Orde red Date DISCHARGE PATIENT 1 12/26/2021 CORE MEASURES Count Last Ordered Date First Ord ered Date REASON FOR NO VTE PROPHYLAXIS AT ADMISSION 2 12/23/2021 documented in this encounter Care Teams Manager Domestic Relationship Specialty Start Date End Date Gerardo Hoffman MD [address] [facility] [address] [place] [address] PCP - General 10/09/17 Liu Jerez MD Consulting Physician Gastroenterology 07/28/17 [place] [id number] [facility] [address] [place] [address] Consulting Physician Pulmonary Disease 08/03/17 Khris Arthur MD [address] [place] [address] [address] [place], [place] [id number] Medical Oncologist/Blackjack Dealer Medical Oncology 10/23/17 [place] [id number] [facility] [address] [place] [address] Surgeon Orthopedic Surgery 10/23/17 [place] [id number] [address] Consulting Physician Pain Management 10/23/17 [place] [id number] [facility] [address] [place] [address] Referring Physician General Surgery 01/26/18 [place] [id number] [facility] [address] [place] [address] Consulting Physician Neurology 01/26/18 documented as of this encounter
--- OUTSIDE RECORDS SUMMARY | 2024-04-26 04:21 | XMS_ITS | Encounter Summary ---
Author Organization [facility] Healthcare Address [address] [place] [address] Care Team Providers Care Torpedo Worker Name Role Phone Liu Jerez MD Unavailable Albert Corbin MD Unavailable [phone] Justen Gale MD Primary Care Provider [phone] Khris Arthur MD Unavailable [phone] Ko Melendez MD Unavailable [phone] John Paul Moyer MD Unavailable Annel Rod MD Unavailable Anali MARSHALL MD, Carlos M. Unavailable Reason for Visit * Reason Comments Multiple Medical Complaints Encounter Details Date Type Department Care Team (Late st Contact Info) Description 10/20/2021 11:50 PM CDT - 10/21/2021 3:49 AM CDT Emergency [facility] Emergency Department [address] [place] [address] Kirit Everett DO [address] [id number] Sore throat (Primary Dx); Generalized weakness; Urinary frequency Discharge Disposition: Discharge to home or self [...] on file Legal Sex Female 12:24 AM OCCUP THER Gender Identity Not on file Sexual Orientation Not on file documented as of this encounter Last Filed Vital Signs Vital Sign Reading Time Taken Comments Blood Pressure 149/83 10/21/2021 2:35 AM CDT Pulse 94 10/21/2021 2:35 AM CDT Temperature 36.2 ??C (97.1 ??F) 10/20/2021 1 0:07 PM CDT Respiratory Rate 26 10/20/2021 10:0 7 PM CDT Oxygen Saturation 97% 10/21/2021 2:35 AM CDT Inhaled Oxygen Concentration - - Weight 131.8 kg (290 lb 9.1 oz) 022 10:07 PM CDT Height 154.9 cm (5' 1 ) 10/20/2021 10:0 7 PM CDT Body Mass Index 54.9 10/20/2021 10:07 PM CDT documented in this encounter Discharge Instructions * Attachments The following attachments cannot be sent through Care Everywhere. * Weakness (AfterCare(R) Instructions(ER/ED)) (Puerto Rican) documented in this encounter Medications at Time of Discharge albuterol HFA (PROVENTIL HFA,VENTOLIN HFA,PROAIR HFA) 90 mcg/actuation inhaler Inhale 2 puffs every 6 (six) hours as needed for wheezing or shortness of breath 04/19/2021 BD Ultra-Fine Short Pen Needle 31 gauge x 5/16 needle USE 6 TIMES DAILY DIRECTED 06/24/2021 blood glucose diagnostic (embraaseTouch Ultra Test) strip 4 (four) times a [...] nausea or vomiting 20 tablet 10/21/2021 2 lidocaine viscous (XYLOCAINE) 2 % solution Take 5-10 mL by mouth every 4 (four) hours as needed (sorethroat) 200 mL 10/21/2021 3 documented in this encounter Discharge Disposition Disposition Code Departure Means Destination Discharge to home or self care documented in this encounter ED Notes * Kirit Everett DO - 10/21/2021 12:26 AM CDT HPI Chief Complaint Patient presents with ??? Multiple Medical Complaints 12:26 AM Karly Marques is a 66 y.o. female with PMHx DM and PSHx three C- sections and hernia repairs presenting to the ED c/o generalized weakness. Pt reports feeling shaky and that it is hard for her to have a conversation. Pt states she had a back surgery about a month ago. Pt reports she also had a UTI and strep throat since her spinal stimulator was placed. Pt states her throat still feels like it is closed, which has made it hard for her to swallow. Pt reports her throat pain comes andgoes. Pt endorses nausea for the last 2 weeks. Pt states she gets really sick when she eats. Pt reports sharp head pains that started last night. Pt states her pain almost feels like how she feels when she has an infection. Pt denies CAZARES, itchiness of the throat, stomach pain, heartburn, constipation, or diarrhea. No other modifying factors or associated symptoms at this time. History provided by: Patient Patient History: Past [...] x 5/16 needle ??? blood glucose diagnostic (embraaseTouch Ultra Test) strip ??? exemestane (AROMASIN) 25 [...] for chills and fever. HENT: Positive for sore throat and trouble swallowing. Negative for ear pain. Eyes: Negative for pain and visual disturbance. Respiratory: Negative for cough and shortness of breath. Cardiovascular: Negative for chest pain and palpitations. Gastrointestinal: Positive for nausea. Negative for abdominal pain, constipation, diarrhea and vomiting. Genitourinary: Negative for dysuria and hematuria. Musculoskeletal: Negative for arthralgias and back pain. Skin: Negative for color change and rash. Neurological: Positive for weakness. Negative for seizures and syncope. All other systems reviewed and are negative. All systems reviewed and are neg or non contributory for this patients presentation today other than as stated in the HPI . Physical Exam ED Triage Vitals [10/20/217] Temp Pulse Resp BP SpO2 36.2 ??C (97.1 ??F) 98 26 (!) 185/97 99 % Temp src Heart Rate Source Patient Position BP Location FiO2 (%) Temporal -- -- -- -- Height Height Method Weight Weight Method 1.549 m (5' 1 ) Stated 131.8 kg (290 lb 9.1 [...] General: Skin is warm and dry. Comments: Midline surgical wound 7cm that is healed with no drainage or redness. Neurological: Mental Status: She is alert and oriented to person, place, and time. Procedures [facility] Labs Reviewed URINALYSIS AND REFLEX TO MICROSCOPIC AND CULTURE - Abnormal Result Value Color, ur Yellow Clarity, ur Clear Specific gravity, ur 1.019 pH, urine 6.0 Protein, ur ql Negative [...] tendency for uric acid stone formation. Source: [place] [employer].Last revised 05-04-2017 CBC WITH AUTO DIFFERENTIAL - Abnormal WBC 10.6 (*) Hgb 13.1 Hct 41.9 Plt 326 MPV 9.0 (*) RBC 4.57 MCV 91.7 MCH 28.7 MCHC 31.3 (*) RDW CV 13.9 RDW SD 46.7 NRBC abs 0.00 COMPREHENSIVE METABOLIC PANEL - Abnormal Sodium 141 Potassium, pl 4.7 Chloride 101 CO2 31 Anion gap 9 BUN 17 Creatinine 0.70 Glucose 179 Calcium 10.6 (*) Bilirubin, total 0.3 Protein, pl 8.6 (*) Albumin 4.2 Alk phos 97 ALT 20 AST 21 DIFFERENTIAL AUTO - Abnormal Neutrophil abs 6.6 (*) Imm gran abs 0.0 Lymphocyte abs 2.8 Monocyte abs 0.7 Eosinophil abs 0.4 Basophil abs 0.0 Neutrophil pct 61.9 Imm gran pct 0.4 Lymphocyte pct 26.4 Monocyte pct 7.0 Eosinophil pct 3.9 Basophil pct 0.4 URINALYSIS, MICROSCOPIC ONLY - Abnormal WBC, ur 0-5 RBC, ur 0-2 Epithelial cells, squamous, ur 6-10 (*) Mucous, ur Present (*) Culture Reflex Comment Value: Reflex conditions for urine culture (WBC >10) not met. ERYTHROCYTE SEDIMENTATION RATE - Abnormal Erythrocyte sedimentation rate 69 (*) CRP (ACUTE PHASE) - Abnormal CRP 33.1 (*) EGFR eGFR 96 CRP (ACUTE PHASE) ERYTHROCYTE SEDIMENTATION RATE POCT GLUCOSE DEVICE Glucose, POC 179 Glucose comment 1 Use This Result BP 149/83 Pulse 94 Temp 36.2 ??C (97.1 ??F) (Temporal) Resp 26 Ht 154.9 cm (5' 1 ) Wt 131.8 kg (290 lb 9.1 oz) SpO2 97% BMI 54.90 kg/m?? [facility] ED Course as of 10/21/21 0416 Time: 10/21 010 Comment: Pt administered Zofran injection 4 mg, Lidocaine viscous 2% solution 15 mL. By: Prince Andersen Time: 10/21 0140 Comment: Reassessed pt, who states her throat is feeling better. States she is no longer nauseous. By: Prince Andersen Dc home and f/u with PCP - consider ENT eval--may have throat damage done during intubated with back surgery 1 month ago. - prn zofran Clinical Impression: Sore throat Generalized weakness Urinary frequency Prince Andersen scribed for Karlos Beth DO in the doctor's presence. I electronically signed this note at 4:16 AM on 10/21/2021. I, Karlos Beth DO , have personally performed the services described in the documentation , reviewed the documentation, as recorded by the scribe in my presence, and it accurately and completelyrecords my words and actions. Kirit Everett DO 10/21/21 0416 * Melani Suarez, NURIS - 10/20/2021 10:05 PM CDT Pt arrives with c/o generalized weakness, urinary frequency, feels as if her tongue is swelling, nausea, sore throat. Pt states that she was seen approx. 1 week ago and was dx with strep and a UTI. Pt states that she took all antibiotics as prescribed and hasn't been getting better. documented in this encounter Plan of Treatment Pending Results Name Type Priority Associated Diagnoses Date /Time CRP (acute phase) Lab STAT 022 10:33 PM CDT Erythrocyte sedimentation rate Lab STAT 10/20/2021 10:33 PM CDT Scheduled Orders Name Type Priority Associated Diagnoses Orde r Schedule CRP (acute phase) Lab STAT Once fo r 1 Occurrences starting 10/20/2021 until 10/20/2021 Erythrocyte sedimentation rate Lab STAT Once for 1 Occur rences starting 10/20/2021 until 10/20/2021 documented as of this encounter Procedures Procedure Name Priority Date/Time Associated Diagnosis Comments URINALYSIS AND REFLEX TO MICROSCOPIC AND CULTURE STAT 10/20/2021 10:45 PM CDT URINALYSIS, MICROSCOPIC ONLY STAT 10/20/2021 10:45 PM CDT EGFR STAT 10/20/2021 10:33 PM CDT DIFFERENTIAL AUTO STAT 10/20/2021 10: 33 PM CDT CBC WITH AUTO DIFFERENTIAL STAT 10/20/2021 10:33 PM CDT ERYTHROCYTE SEDIMENTATION RATE STAT 10/20/2021 10:33 PM CDT CRP (ACUTE PHASE) STAT 10/20/2021 10: 33 PM CDT COMPREHENSIVE METABOLIC PANEL STAT 10/20/2021 10:33 PM CDT POCT GLUCOSE DEVICE Routine 10/20/2021 1 0:12 PM CDT documented in this encounter Results * (ABNORMAL) Urinalysis, microscopic only (10/20/2021 10:45 PM CDT) WBC, ur 0-5 0 - 5 /HPF MARY JANE PHAM Comment:Testing performed by : [facility], [address] [place] [address]., [id number] RBC, ur 0-2 0 - 2 /HPF MARY JANE PHAM Comment:Testing performed by : [address] [address] Epithelial cells, squamous, ur 6-10(A) 0 - 5 /HPF MARY JANE PHAM Comment: Suggestive of contamination. Consider recollection by clean catch. Testing performed by: [address] [address] Mucous, ur Present(A) MARY JANE PHAM Comment:Testing performed by : [address] [address] Culture Reflex Comment Reflex conditions for urine culture (WBC >10) not met. MARY JANE Comment:Testing performed by : [address] [address] Urine, clean voided 10/20/2021 10:45 PM CDT 10/20/2021 10:48 PM CDT Kirit Everett DO LAB URINE ORDERABLES Final Res ult MARY JANE [address] [facility] Department [place] [address] * (ABNORMAL) Urinalysis reflex to microscopic and culture Urine, clean voided (10/20/2021 10:45 PM CDT) Color, ur Yellow Yellow MARY JANE Comment:Testing performed by : [address] [address] Clarity, ur Clear Clear MARY JANE Comment:Testing performed by : [address] [address] Specific gravity, ur 1.019 1.003 - 1.030 MARY JANE Comment:Testing performed by : [address] [address] pH, urine 6.0 MARY JANE Comment:Testing performed by : [address] [address] Protein, ur ql Negative Negative MARY JANE Comment:Testing performed by : [address] [address] Glucose, ur ql Negative Negative MARY JANE Comment:Testing performed by : [address] [address] Ketones, ur Negative Negative MARY JANE Comment:Testing performed by : [facility], [address] [place] [address]., [address] Bilirubin, ur Negative Negative MARY JANE PHAM Comment:Testing performed by : [address], [place]., [address] Blood, ur 2+(A) Negative MARY JANE PHAM Comment:Testing performed by : [address], [place]., [address] Urobilinogen, ur <2.0 <2.0 mg/dL MARY JANE PHAM Comment:Testing performed by : [address], [place]., [address] Nitrite, ur Negative Negative MARY JANE Comment:Testing performed by : [address] [address] Leukocyte esterase, ur Negative Negative MARY JANE PHAM Comment:Testing performed by : [address], [place]., [address] UA reflex comment Reflex to microscopic UA will be performed. MARY JANE PHAM Comment:Testing performed by : [address] [address] Urine, clean voided 10/20/2021 10:45 PM CDT 10/20/2021 10:48 PM CDT Narrative MARY JANE PHAM - 10/20/2021 11:03 PM CDT ?? Urine pH is affected by diet, medications, systemic acid-base disturbances, and renal tubular function. ??pH may affect urinary stone formation. ??For example, urine pH below 6.0 may help reduce the tendency for calcium phosphate stones and pH greater than 6.0 may reduce the tendency for uric acid stone formation. Source: [employer]. Last revised 05-04-2017 us Kirit Everett DO LAB MICROBIOLOGY - GENERAL ORD ERABLES Final Result MARY JANE PHAM [address] [facility] Department [place] [address] * (ABNORMAL) CRP (acute phase) (10/20/2021 10:33 PM CDT) CRP 33.1(H) <=10.0 mg/L MARY JANE PHAM Comment:Testing performed by : [facility], [address] [place] [address]., [address] Blood 10/20/2021 10:3 3 PM CDT 10/20/2021 10:36 PM CDT Kirit Everett DO LAB BLOOD ORDERABLES Final Res ult Performing Organization Address [facility] Co de Phone Number [facility] [address] [address] * (ABNORMAL) Erythrocyte sedimentation rate (10/20/2021 10:33 PM CDT) Erythrocyte sedimentation rate 69(H) 1 - 30 mm/hr MARY JANE Comment:Testing performed by : [facility], [address] [place] [address]., [id number] Blood 10/20/2021 10:3 3 PM CDT 10/20/2021 10:36 PM CDT Kirit Everett DO LAB BLOOD ORDERABLES Final Res ult Performing Organization Address [facility] de Phone Number [address] [address] * eGFR (10/20/2021 10:33 PM CDT) eGFR 96 mL/min/1. 73 m2 MARY [...] was last reviewed 2021. Testing performed by: [address] [address] Blood 10/20/2021 10:3 3 PM CDT 10/20/2021 10:36 PM CDT us Kirit Everett DO LAB BLOOD ORDERABLES Final Res ult MARY JANE [address] [facility] Department [place] [address] * (ABNORMAL) Differential, auto (10/20/2021 10:33 PM CDT) Neutrophil abs 6.6(H) 1.7 - 6.5 K/cumm MARY JANE PHAM Comment:Testing performed by : [address] [address] Imm gran abs 0.0 0.0 - 0.1 K/cumm MARY JANE Comment:Testing performed by : [address] [address] Lymphocyte abs 2.8 0.8 - 3.3 K/cumm MARY JANE Comment:Testing performed by : [address] [address] Monocyte abs 0.7 0.2 - 0.8 K/cumm MARY JANE Comment:Testing performed by : [address] [address] Eosinophil abs 0.4 0.0 - 0.5 K/cumm MARY JANE Comment:Testing performed by : [address] [address] Basophil abs 0.0 0.0 - 0.1 K/cumm MARY JANE Comment:Testing performed by : [address] [address] Neutrophil pct 61.9 % [facility] Comment: Interpretive Data Percent cell count reference ranges are not reported, since discordance with absolute values may lead to misinterpretation of CBC data. Current Interpretive Data was last revised on 2017. Testing performed by: [address] [address] Imm gran pct 0.4 % [facility] Comment: Interpretive Data Percent cell count reference ranges are not reported, since discordance with absolute values may lead to misinterpretation of CBC data. Current Interpretive Data was last revised on 2017. Testing performed by: [address] [address] Lymphocyte pct 26.4 % [facility] Comment: Interpretive Data Percent cell count reference ranges are not reported, since discordance with absolute values may lead to misinterpretation of CBC data. Current Interpretive Data was last revised on 2017. Testing performed by: [address] [address] Monocyte pct 7.0 % [facility] Comment: Interpretive Data Percent cell count reference ranges are not reported, since discordance with absolute values may lead to misinterpretation of CBC data. Current Interpretive Data was last revised on 2017. Testing performed by: [address] [address] Eosinophil pct 3.9 % [facility] Comment: Interpretive Data Percent cell count reference ranges are not reported, since discordance with absolute values may lead to misinterpretation of CBC data. Current Interpretive Data was last revised on 2017. Testing performed by: [address] [address] Basophil pct 0.4 % [facility] Comment: Interpretive Data Percent cell count reference ranges are not reported, since discordance with absolute values may lead to misinterpretation of CBC data. Current Interpretive Data was last revised on 2017. Testing performed by: [address] [address] Blood 10/20/2021 10:3 3 PM CDT 10/20/2021 10:36 PM CDT Kirit Everett DO LAB BLOOD ORDERABLES Final Res ult MARY JANE [address] [facility] Department [place] [address] * (ABNORMAL) Comprehensive metabolic panel (10/20/2021 10:33 PM CDT) Sodium 141 135 - 145 mmol/L MARY JANE Comment:Testing performed by : [address] [address] Potassium, pl 4.7 3.3 - 4.9 mmol/L MARY JANE Comment:Testing performed by : [address] [address] Chloride 101 97 - 110 mmol/L MARY JANE Comment:Testing performed by : [address] [address] CO2 31 22 - 32 mmol/L MARY JANE Comment:Testing performed by : [address] [address] Anion gap 9 2 - 15 mmol/L MARY JANE Comment:Testing performed by : [address] [address] BUN 17 8 - 25 mg/dL MARY JANE Comment:Testing performed by : [address] [address] Creatinine 0.70 0.60 - 1.10 mg/dL MARY JANE Comment:Testing performed by : [address] [address] Glucose 179 70 - 199 mg/dL MARY JANE Comment: [...] was last revised 2017. Testing performed by: [address] [address] Calcium 10.6(H) 8.5 - 10.3 mg/dL MARY JANE Comment:Testing performed by : [address] [address] Bilirubin, total 0.3 0.1 - 1.2 mg/dL MARY JANE Comment:Testing performed by : [address] [address] Protein, pl 8.6(H) 6.5 - 8.5 g/dL MARY JANE Comment:Testing performed by : [address] [address] Albumin 4.2 3.5 - 5.0 g/dL MARY JANE Comment:Testing performed by : [address] [address] Alk phos 97 40 - 130 Units/L MARY JANE Comment:Testing performed by : [address] [address] ALT 20 7 - 45 Units/L MARY JANE Comment:Testing performed by : [address] [address] AST 21 10 - 45 Units/L MARY JANE Comment:Testing performed by : [address] [address] Blood 10/20/2021 10:3 3 PM CDT 10/20/2021 10:36 PM CDT us Kirit Everett DO LAB BLOOD ORDERABLES Final Res ult MARY JANE PHAM [address] [facility] Department [place] [address] * (ABNORMAL) CBC with auto differential (10/20/2021 10:33 PM CDT) WBC 10.6(H) 3.8 - 9.9 K/cumm MARY JANE PHAM Comment:Testing performed by : [address] [address] Hgb 13.1 11.9 - 15.5 g/dL MARY JANE Comment:Testing performed by : [address], [address] Hct 41.9 35.6 - 45.5 % MARY JANE Comment:Testing performed by : [address] [address] Plt 326 150 - 400 K/cumm MARY JANE Comment:Testing performed by : [address] [address] MPV 9.0(L) 9.1 - 12.3 fL MARY JANE Comment:Testing performed by : [address], [address] RBC 4.57 3.90 - 5.20 M/cumm MARY JANE Comment:Testing performed by : [address], [address] MCV 91.7 81.3 - 96.4 fL MARY JANE Comment:Testing performed by : [address] [address] MCH 28.7 27.1 - 33.3 pg MARY JANE Comment:Testing performed by : [address] [address] MCHC 31.3(L) 32.3 - 35.7 g/dL MARY JANE Comment:Testing performed by : [address], [address] RDW CV 13.9 11.1 - 14.9 % MARY JANE Comment:Testing performed by : [address] [address] RDW SD 46.7 35.7 - 48.1 fL MARY JANE Comment:Testing performed by : [address] [address] NRBC abs 0.00 0.00 - 0.01 K/cumm MARY JANE Comment:Testing performed by : [address] [address] Blood 10/20/2021 10:3 3 PM CDT 10/20/2021 10:36 PM CDT Kirit Everett DO LAB BLOOD ORDERABLES Final Res ult Performing Organization Address [facility]/ZIP Co de Phone Number MARY JANE [address] [facility] [place] [address] * POCT glucose (10/20/2021 10:12 PM CDT) [facility] Glucose, POC 179 70 - 199 mg/dL MARY JANE Comment:Testing performed by : [facility], [address] [place] [address]., [address] Glucose comment 1 Use This Result MARY JANE Comment:Testing performed by : [facility], [address] [place] [address]., [address] Blood 10/20/2021 10:1 2 PM CDT 10/20/2021 10:12 PM CDT Notinfile Unknown LAB POCT ORDERABLES - DEVICE F inal Result Performing Organization Address [facility] Co de Phone Number MARY JANE [address] [place] [address] documented in this encounter Visit Diagnoses Diagnosis Sore throat- Primary Acute pharyngitis Generalized weakness Urinary frequency documented in this encounter Administered Medications Inactive Administered Medications - up to 3 most recent administrations Medication Order MAR Action Action Date Dose Rate Site lidocaine viscous (XYLOCAINE) 2 % solution 15 mL 15 mL, oral, Once, On Valeri 10/21/21 at 0047, For 1 dose Given 10/21/2021 12:58 AM CDT 15 mL ondansetron (ZOFRAN) 4 mg/2 mL injection - ADS Override Pull Starting on Valeri 10/21/21 at 0035, For 1 dose, Created by cabinet override ondansetron (ZOFRAN) injection 4 mg 4 mg, intravenous, Administer over 2 Minutes, Once, On Valeri 10/21/21 at 0036, For 1 dose Given 10/21/2021 12:39 AM CDT 4 mg sodium chloride 0.9% bolus 1,000 mL 1,000 mL, intravenous, Once, On Valeri 10/21/21 at 0035, For 1 dose New Bag 10/21/2021 12:38 AM CDT 1,000 mL documented in this encounter Active and Recently Administered Medications Times are shown in CDT. Scheduled Medication Order 10/19/2021 10/20/2021 10/21/2021 lidocaine viscous (XYLOCAINE) 2 % solution 15 mL (COMPLETED) 15 mL, oral, Once, On Valeri 10/21/21 at 0047, For 1 dose 0058 (Given - Provid er: Rosa Tomlinson RN) ondansetron (ZOFRAN) injection 4 mg (COMPLETED) 4 mg, intravenous, Administer over 2 Minutes, Once, On Valeri 10/21/21 at 0036, For 1 dose 0039 (Given - Provid er: Rosa Tomlinson RN) sodium chloride 0.9% bolus 1,000 mL (COMPLETED) 1,000 mL, intravenous, Once, On Valeri 10/21/21 at 0035, For 1 dose 0038 (New Bag - Prov ider: Rosa Tomlinson RN)0315 (Stopped - Provider: Rosa Tomlinson RN) documented in this encounter Orders Medications Ordered That Tyler ht Not Have Been Administered Count Last Ordered Date First Ordered Date cloNIDine (CATAPRES) tablet 0.2 mg 1 2021 documented in this encounter Care Teams Torpedo Worker Relationship Specialty Start Date End Date Justen Gale MD [address] [facility] [address] [place] [address] PCP - General 10/09/17 Liu Jerez MD Consulting Physician Gastroenterology 07/28/17 [place] [address] [facility] [address] [place] [address] Consulting Physician Pulmonary Disease 08/03/17 Khris Arthur MD [address] [place] [address] [address] [place] [address] Medical Oncologist/Plane Tender Medical Oncology 10/23/17 [place] [address] [facility] [address] [place] [address] Surgeon Orthopedic Surgery 10/23/17 [place] [address] [address] Consulting Physician Pain Management 10/23/17 [place] [address] [facility] [address] [place] [address] Referring Physician General Surgery 01/26/18 [place] [address] [facility] [address] [place] [address] Consulting Physician Neurology 01/26/18 documented as of this encounter
--- OUTSIDE RECORDS SUMMARY | 2024-04-26 04:21 | XMS_ITS | Encounter Summary ---
Author Organization [facility] Address [address] [place] [address] Phone Care Team Providers Care Jewelry Maker Name Role Phone Liu Jerez MD Unavailable Albert Corbin MD Unavailable Justen Gale MD Primary Care Provider Khris Arthur MD Unavailable [phone] Ko Melendez MD Unavailable John Paul Moyer MD Unavailable [phone] Annel Rod MD Unavailable Anali MARSHALL MD, Carlos M. Unavailable Encounter Details Date Type Department Care Team (Late st Contact Info) Description 11/08/2021 Orders Only [facility] Oncology [address] [facility] Advanced Medicine 7th [place] [address] [place] [address] Jeanine Ba, KHADRAA Other pulmonary [...] on file Legal Sex Female 12:24 AM [employer]LECT[employer]IAN [employer] Gender Identity Not on file Sexual Orientation [...] total) by mouth daily 30 tablet 2 11/08/2021 2 documented in this encounter Plan of Treatment [...] (20 mg total) by mouth daily Reorder 08/16/2021 11/08/2021 documented as of this encounter Care Teams Jewelry Maker Relationship Specialty Start Date End Date Justen Gale MD [address] [address] PCP - General 10/09/17 Liu Jerez MD Consulting Physician Gastroenterology 07/28/17 [place] [address] [address] [address] [place] [address] Consulting Physician Pulmonary Disease 08/03/17 Khris Arthur MD [address] [facility] [address] [place] [address] Medical Oncologist/Electrical Engineering Designer Medical Oncology 10/23/17 [place] [address] [address] [address] [place] [address] Surgeon Orthopedic Surgery 10/23/17 [place] [address] [address] [facility] [address] [place] [address] Consulting Physician Pain Management 10/23/17 [place] [address] [facility] [facility] [address] [place] [address] Referring Physician General Surgery 01/26/18 [place] [address] [address] [facility] [address] [place] [address] Consulting Physician Neurology 01/26/18 documented as of this encounter
--- OUTSIDE RECORDS SUMMARY | 2024-04-26 04:21 | XMS_ITS | Encounter Summary ---
Author Organization [facility] Address [address] [place] [address] Phone Care Team Providers Care Tiler Name Role Phone Liu Jerez MD Unavailable [phone] Albert Corbin MD Unavailable [phone] Justen Gale MD Primary Care Provider Khris Arthur MD Unavailable [phone] Ko Melendez MD Unavailable John Paul Moyer MD Unavailable Annel Rod MD Unavailable Anali MARSHALL MD, Carlos M. 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[employer] Gender Identity Not on file Sexual Orientation [...] mg total) by mouth nightly 90 tablet 11/30/2021 2 documented in this encounter Plan of [...] (25 mg total) by mouth nightly Reorder 08/16/2021 11/30/2021 documented as of this encounter Care Teams Tiler Relationship Specialty Start Date End Date Justen Gale MD [address] [address] PCP - General 10/09/17 Liu Jerez MD Consulting Physician Gastroenterology 07/28/17 [place] [address] [facility] [address] [place] [address] Consulting Physician Pulmonary Disease 08/03/17 Khris Arthur MD [address] [facility] [address] [place] [address] Medical Oncologist/Ichthyology Teacher Medical Oncology 10/23/17 [place] [address] [facility] [address] [place] [address] Surgeon Orthopedic Surgery 10/23/17 [place] [address] [facility] [address] [place] [address] Consulting Physician Pain Management 10/23/17 [place] [address] [facility] [address] [place] [address] Referring Physician General Surgery 01/26/18 [place] [address] [facility] [address] [place] [address] Consulting Physician Neurology 01/26/18 documented as of this encounter
--- OUTSIDE RECORDS SUMMARY | 2024-04-26 04:21 | XMS_ITS | Encounter Summary ---
Author Organization [facility] Healthcare Address [address] [place] [address] Care Team Providers Care Lunchroom Monitor Name Role Phone Liu Jerez MD Unavailable [phone] Albert Corbin MD Unavailable uJsten Gale MD Primary Care Provider [phone] Khris Arthur MD Unavailable [phone] Ko Melendez MD Unavailable John Paul Moyer MD Unavailable Annel Rod MD Unavailable Anali MARSHALL MD, Carlos M. Unavailable Reason for Visit * Reason Comments Urinary Problem Peripheral Edema * Auth/Cert Specialty Diagnoses / Procedures Referred By Elyssa t Referred To Contact Diagnoses Cystitis Procedures Referral ID Status Reason Start Date Expiration Date Visits Re quested Visits Authorized [id number] 1 1 Encounter Details Date Type Department Care Team (Late st Contact Info) Description 02/09/2022 4:07 PM CDT - 02/17/2022 11:38 AM CDT Hospital Encounter [facility] 5 Med Surg [address] [place] [address] Mariel Florentino MD [facility] [place] [id number] Neha Solo MD [address] [place] [address] Antoinette Reed MD [address] [place] [address] Cystitis (Primary Dx) Discharge Disposition: Discharge to home [...] How often do you attend chur or tenriism services? Never 02/11/2022 Do you belong to [...] on file Legal Sex Female 12:24 AM [employer] Gender Identity Not on file Sexual Orientation Not on file documented as of this encounter Last Filed Vital Signs Vital Sign Reading Time Taken Comments Blood Pressure 162/94 02/17/2022 7:36 AM CDT Pulse 84 02/17/2022 9:20 AM CDT Temperature 36.8 ??C (98.3 ??F) 02/17/2022 7:36 AM CD T Respiratory Rate 18 02/17/2022 9:20 AM CDT Oxygen Saturation 98% 02/17/2022 9:20 AM CDT Inhaled Oxygen Concentration - - Weight 128.3 kg (282 lb 14.4 oz) 2021 10:17 PM CDT Height 154.9 cm (5' 1 ) 02/09/2022 10:1 7 PM CDT Body Mass Index 53.45 02/09/2022 10:17 PM CDT documented in this encounter Discharge Summaries * Antoinette Reed MD - 02/17/2022 10:47 AM CDT Inpatient Discharge Summary BRIEF OVERVIEW Admitting Provider: Mariel Florentino MD Discharge Provider: Antoinette Reed MD Primary Care Physician at Discharge: Justen Gale MD [phone] Admission Date: 02/09/2022 Discharge Date: 02/17/2022 Admission Location: [facility] Problems/Diagnoses: Principal Problem: Cystitis Active Problems: Essential hypertension History of pulmonary embolism Type 2 diabetes mellitus with neurologic complication, without long-term current use of insulin ([facility] ([facility]) Lab test positive for detection of COVID-19 virus Resolved Problems: No resolved hospital problems. DETAILS OF HOSPITAL STAY Presenting Problem/History of Present Illness: 66-year-old morbidly obese woman with type 2 DM, history of DVT/PE on Xarelto, overactive bladder, recurrent UTI and recent COVID-19 infection. She presented with increased urinary frequency, lower abdominal pain and right lower back pain. Symptoms have been present for the past 4 days. Lower abdominal pain is crampy in nature and worse during micturition. Symptoms are associated with chills, nausea, 2 episodes of nonbloody/nonbilious vomiting this morning, and exertional dyspnea. No associated hematuria, fever, cough, chest pain/tightness, orthopnea and PND. Of note, she endorsed recurrent UTIs especially since October when she had to be transferred to [facility] for UTI with sepsis, treated with ertapenem for 5 days in the hospital, and subsequently completing 6-8 weeks at home. Shortly thereafter, symptoms returned; she was started on Bactrim for E coli UTI times 10 days. Her symptoms resolved. Now she has developed symptoms again, worse than before. In the ER, she was hypertensive. Laboratory evaluation showed pyuria and leukocytosis. She tested positive for COVID-19 (persistent times the past 3-[address] of the chest, abdomen and pelvis showed no acute disease process. She was given ciprofloxacin and IV morphine for pain. Hospital Course: She had a prolonged but uncomplicated hospital course. She had multiple antibiotic allergies. Initially on ciprofloxacin. . Urine culture positive for E coli. Persistent leucocytosis. ID was consulted. Antibiotic switched to Switched to meropenem. Symptoms improved but had to switch to Macrobid as she complained of skin rash and irtritation while on meropenem. She completed 3 days of Macrobid buthad an allergic rxn; hives and nausea while on Macrobid. She will need Allergy immunology as an outpatient for further evaluation of her multiple antibiotics allergy Active Issues Requiring Follow-up: Allergy immunology as an outpatient for further evaluation of her multiple antibiotics allergy Discharge Details Physical Exam at Discharge: Discharge Condition: good Pulse: 84 Resp: 18 BP: 162/94 Temp: 36.8 ??C (98.3 ??F) Weight: 128.3 kg (282 lb 14.4 oz) Pertinent Exam Findings at Discharge: Physical Exam GEN: Alert, well nourished in NAD HEENT: normocephalic, atraumatic, HEENT, GISELA RESP: CTAB , no added sounds CVS: RRR, no pedal edema, no murmurs, GI: Soft, moves with resp , non tender, no distended, MSKL: moves all extremities spontaneously INTEG: intact, no rash NEURO : Alert , oriented x 3 , no focal deficit Discharge Disposition: Discharge to home or self care Code Status at Discharge: Full code Discharge Medications: Current Medications TAKE these medications albuterol HFA 90 mcg/actuation inhaler INHALE 2 PUFFS INTO LUNGS BY MOUTH EVERY 4 HOURS NEEDED FOR WHEEZING OR SHORTNESS OF BREATH Commonly known as: PROVENTIL HFA,VENTOLIN HFA,PROAIR HFA amitriptyline 25 mg tablet Take 25 mg by mouth nightly Commonly known as: ELAVIL BD Ultra-Fine Short Pen Needle 31 gauge x 5/16 needle USE 6 TIMES DAILY DIRECTED Generic drug: pen needle, diabetic exemestane 25 mg tablet Take 1 tablet (25 mg total) by mouth nightly Commonly known as: AROMASIN HYDROcodone-acetaminophen 7.5-325 mg per tablet Take 1 tablet by mouth every 6 (six) hours Commonly known as: NORCO insulin glargine 100 unit/mL vial for injection Inject 40 Units under the skin daily. Takes in the morning Commonly known as: LANTUS, SEMGLEE insulin lispro 100 unit/mL vial for injection Inject 12 Units under the skin 3 (three) times a day before meals. Commonly known as: HumaLOG, ADMELOG lidocaine viscous 2 % solution Take 5-10 mL by mouth every 4 (four) hours as needed (sorethroat) Commonly known as: XYLOCAINE meclizine 25 mg tablet Take 1 tablet (25 mg total) by mouth 3 (three) times a day as needed for dizziness Commonly known as: ANTIVERT mupirocin 2 % ointment mupirocin 2 % topical ointment Commonly known as: BACTROBAN naloxone 4 mg/actuation spray,non-aerosol CALL 911. SPR CONTENTS OF ONE SPRAYER (0.1ML) INTO ONE NOSTRIL. REPEAT IN 2-3 MIN IF SYMPTOMS OF OPIOID EMERGENCY PERSIST, ALTERNATE NOSTRILS Commonly known as: NARCAN nystatin powder Apply 1 application topically daily ondansetron 4 mg tablet Take 1 tablet (4 mg total) by mouth every 4 (four) hours as needed for nausea or vomiting Commonly known as: ZOFRAN OneTouch Ultra Test strip 4 (four) times a day Generic drug: blood glucose diagnostic oxybutynin 5 mg tablet take 1 tablet by oral route every day Commonly known as: DITROPAN pantoprazole DR 40 mg EC tablet Take 1 tablet (40 mg total) by mouth 2 (two) times a day For: Treatment of Non-Bleeding Gastric Disorder Commonly known as: PROTONIX rivaroxaban 20 mg tablet Take 1 tablet (20 mg total) by mouth daily Commonly known as: Xarelto rOPINIRole 5 mg tablet Take 5 mg by mouth nightly Commonly known as: REQUIP Outpatient Follow-Up: Future Appointments Date Time Provider Department Center 03/08/2022 10:50 AM [facility] 03/08/2022 12:00 PM Khris Arthur MD ONC CAM7 Oncology Contact Information for Follow-ups Lester Lebron MD Specialty: Allergy and Immunology, Internal Medicine [address] [place] [id number] Next Steps: Follow up primary care provider call for appointment. Follow up within 1 week. Next Steps: Follow up Questions: Primary Care Provider Name: Justen Gale MD Instructions for follow-up (appointment date and time): call for appointment. Follow up within 1 week. Justen Gale MD Specialty: Family Medicine Relationship: PCP - General [address] [place] [id number] Next Steps: Follow up documented in this encounter Discharge Instructions * Attachments The following attachments cannot be sent through Care Everywhere. * Urinary Tract Infection in Older Adults (Discharge Care) (Somali) documented in this encounter Medications at Time of Discharge albuterol HFA (PROVENTIL HFA,VENTOLIN HFA,PROAIR HFA) 90 mcg/actuation inhaler Inhale 2 puffs every 6 (six) hours as needed for wheezing or shortness of breath 1 BD Ultra-Fine Short Pen Needle 31 gauge x 5/16 needle USE 6 TIMES DAILY DIRECTED 2 blood glucose diagnostic ([email or web address] Ultra Test) strip 4 (four) times a [...] documented in this encounter Progress Notes * Genaro Coy MD - 02/17/2022 10:19 AM CDT Progress Note Infectious Diseases Chief complaint: Recurrent urinary tract infection. Multiple antibiotics allergy Subjective No fever or chills. No nausea or vomiting. Normal bowel movement Objective Vitals: 02/17/22 0920 BP: Pulse: 84 Resp: 18 Temp: SpO2: 98% Constitutional: Alert, oriented x3. In no distress. [...] 650 mg 650 mg oral Q4H PRN Blaze Armenta NP 650 mg at 02/16/22 1328 albuterol HFA (PROVENTIL HFA,VENTOLIN HFA,PROAIR HFA) 90 mcg/actuation inhaler 2 puff 2 puff inhalation Q6H While awake (RT) Blaze Armenta NP 2 puff at 02/17/22 0920 amitriptyline (ELAVIL) tablet 25 mg 25 mg oral Nightly Blaze Armenta NP 25 mg at 02/16/222050 sodium chloride 0.9% flush 0.5-20 mL 0.5-20 mL intra-catheter Q8H RODERICK Blaze Armenta NP 10 mL at 02/16/222052 And sodium chloride 0.9% flush 0.5-20 mL 0.5-20 mL intra-catheter PRN Blaze Armenta NP And Carrier Fluids for Secondary Infusion - 0.9% Sodium Chloride 30 mL intravenous PRN Blaze Armenta NP 30 mL at 02/10/22 0615 dextrose gel in packet 15 g 15 g oral Q15 Min PRN Blaze Armenta NP Or dextrose (D10W) 10% bolus 250 mL 250 mL intravenous Q15 Min PRN Blaze Armenta NP glucagon injection 1 mg 1 mg intramuscular Q30 Min PRN Blaze Armenta NP HYDROmorphone (DILAUDID) injection 0.5 mg 0.5 mg intravenous Q4H PRN Marisa House MD 0.5 mg at 02/17/22 0256 insulin glargine (LANTUS, SEMGLEE) 100 unit/mL injection 33 Units 0.25 Units/kg subcutaneous Nightly Blaze Armenta NP 33 Units at 02/16/222051 insulin lispro (HumaLOG, ADMELOG) 100 unit/mL injection 11 Units 0.083 Units/kg subcutaneous TID with meals Blaze Armenta NP 11 Units at 02/17/22 0903 meclizine (ANTIVERT) tablet 25 mg 25 mg oral TID PRN Blaze Armenta NP ondansetron ODT (ZOFRAN-ODT) disintegrating tablet 4 mg 4 mg oral Q6H PRN Blaze Armenta NP 4 mg at1 0755 Or ondansetron (ZOFRAN) injection 4 mg 4 mg intravenous Q6H PRN Blaze Armenta NP 4 mg at 02/14/22 0625 polyethylene glycol (MIRALAX) packet 17 g 17 g oral Daily PRN Blaze Armenta NP ramelteon (ROZEREM) tablet 8 mg 8 mg oral Nightly PRN Blaze Armenta NP 8 mg at 02/15/228 rivaroxaban (XARELTO) tablet 20 mg 20 mg oral Daily with dinner Blaze Armenta NP 20 mg at rOPINIRole (REQUIP) tablet 5 mg 5 mg oral Nightly Blaze Armenta NP 5 mg at 02/16/222050 sodium chloride 0.9% flush 5-10 mL 5-10 mL intra-catheter Q8H [facility] Neha Solo MD 10 mL at 02/16/222052 sodium chloride 0.9% flush 5-10 mL 5-10 mL intra-catheter PRN Neha Solo MD Allergies Allergen Reactions Ceftriaxone Anaphylaxis R Ceftriaxone Sodium Shortness of breath Cephalosporins Anaphylaxis Lorazepam Unknown Aggrevates restless leg syndrome Ciprofloxacin Rash Latex Rash Levofloxacin Hives and Unknown Lisinopril Swelling Meropenem Rash Piperacillin-Tazobactam Rash Metoclopramide Hcl Unknown Reslizumab Unknown Ketorolac Itching Macrobid [Nitrofurantoin] Flushing (skin) Metoclopramide [...] Other Family history of restless leg syndrome; Lab Results Component Value Date HGBA1C 7.7 (H) 02/11/2022 TSH 2.20 09/11/2021 TIBC 335 11/26/2015 INR 1.5 (H) 02/09/2022 DDIMER <150 (L) 08/01/2017 FERRITIN 121 11/26/2015 BNP 18 03/17/2018 CHOLHDL 4 01/24/2018 HCT 39.0 02/17/2022 MCH 28.6 02/17/2022 MCV 92.2 02/17/2022 MPV 9.6 02/17/2022 HDL 36 (L) 01/24/2018 RBC 4.23 02/17/2022 RDW 14.5 05/16/2017 WBC 10.4 (H) 02/17/2022 Assessment/Plan 1. Leukocytosis most likely secondary to urinary tract infection, progressively improving. White count is down to 10. Completed 7 days of IV antibiotics. Continue MicroBid day 3 of 5. Okay for discharge planning if okay with others. 2. Multiple antibiotics allergy. Latest questionable allergy includes meropenem which causes her tohave gestures. Vital signs are stable no rash. I would recommend patient to follow-up with Allergy immunology as an outpatient for further evaluation of her multiple antibiotics allergy 3. Type 2 diabetes stable blood sugar ranging between 120-154. 4. Obesity with BMI of 53 Genaro Coy MD [facility] Infectious Disease [place] [facility] [phone] * Antoinette Reed MD - 02/16/2022 2:55 PM CDT General Medicine Daily Progress Subjective Chief complaint of Flank pain. Interval History: episode of nausea, hives and flushing this morning after Macrobid administration. Past Medical History: Diagnosis Date Adiposity obesity Breast CA (CMS/HCC) (HCC) Cancer (CMS/HCC) (HCC) breast CHF (congestive heart failure) (CMS/HCC) (HCC) Depression Depression Diabetes (HCC) Disorder of thyroid Thyroid disease DVT (deep venous thrombosis) (CMS/HCC) (HCC) HX OTHER MEDICAL restless leg syndrome HX OTHER MEDICAL RLS Hypertension Hypertension Osteoarthritis osteoarthritis PE (pulmonary thromboembolism) (CMS/HCC) (HCC) Sleep apnea Objective Vitals: 24hr Min/Max: Temp Min: 36 ??C (96.8 ??F) Max: 36.7 ??C (98 ??F) Pulse Min: 67 Max: 94 BP Min: 112/78 Max: 164/84 Resp Min: 20 Max: 20 SpO2 Min: 95 % Max: 99 % Most Recent : Vitals: 02/16/22 1437 BP: Pulse: Resp: Temp: SpO2: 98% I/O last 2 completed shifts: In: 830 [P.O.:720; I.V.:10; IV Piggyback:100] Out: - I/O this shift: In: 200 [P.O.:200] Out: - Review of systems All other systems reviewed and found negative. Physical Exam GEN: Alert, well nourished in NAD HEENT: normocephalic, atraumatic, HEENT, GIESLA RESP: CTAB , no added sounds CVS: RRR, no pedal edema, no murmurs, GI: Soft, moves with resp , non tender, no distended, MSKL: moves all extremities spontaneously INTEG: intact, no rash NEURO : Alert , oriented x 3 , no focal deficit Lab/Radiology/Diagnostic Review: Recent Labs Lab Units 02/16/22 0416 02/15/22 0308 02/14/22 1224 02/13/22 0725 WBC K/cumm 12.4* 14.5* 18.2* 14.9* HEMOGLOBIN g/dL 11.7* 12.3 14.6 13.5 HEMATOCRIT % 36.9 38.9 46.3* 42.7 PLATELETS K/cumm 258 280 290 291 NEUTROS PCT % 69.2 72.8 77.3 71.0 LYMPHS PCT % 21.8 19.6 14.8 19.7 MONOS PCT % 6.8 5.9 6.3 7.2 EOS PCT % 1.4 1.1 0.8 1.3 Recent Labs Lab Units 02/16/22 1224 02/16/22 0859 02/16/22 0809 02/16/22 0416 02/15/22 0801 02/15/22 0308 02/14/22 1640 02/14/22 1224 02/13/22 0755 02/13/22 0725 02/11/22 0752 02/11/22 0255 SODIUM mmol/L -- -- -- 139 -- 137 -- 137 -- 135 < > 136 POTASSIUM PLASMA mmol/L -- -- -- 4.2 -- 4.4 -- 4.2 -- 4.5 < > 4.4 CHLORIDE mmol/L -- -- -- 105 -- 102 -- 100 -- 101 < > 98 CO2 mmol/L -- -- -- 27 -- 23 -- 27 -- 26 < > 27 ANIONGAP mmol/L -- -- -- 7 -- 12 -- 10 -- 8 < > 11 GLUCOSE mg/dL -- -- -- 133 -- 142 -- 111 -- 162 < > 140 POC GLUCOSE MONITOR mg/dL 120 240* 135 -- < > -- < > -- < > -- < > -- BUN SERUM mg/dL -- -- -- 18 -- 17 -- 19 -- 19 < > 22 CREATININE mg/dL -- -- -- 0.60 -- 0.50* -- 0.60 -- 0.60 < > 0.70 CALCIUM mg/dL -- -- -- 9.2 -- 9.2 -- 9.7 -- 9.8 < > 9.7 ALBUMIN g/dL -- -- -- -- -- -- -- -- -- -- -- 3.7 ALK PHOS Units/L -- -- -- -- -- -- -- -- -- -- -- 102 ALT Units/L -- -- -- -- -- -- -- -- -- -- -- 19 AST Units/L -- -- -- -- -- -- -- -- -- -- -- 15 BILIRUBIN TOTAL mg/dL -- -- -- -- -- -- -- -- -- -- -- 0.8 < > = values in this interval not displayed. @LLMAG4@ Current Facility-Administered Medications Medication Dose Route Frequency Provider Last Rate Last Admin acetaminophen (TYLENOL) tablet 650 mg 650 mg oral Q4H PRN Blaze Armenta NP 650 mg at 02/15/22 1218 albuterol HFA (PROVENTIL HFA,VENTOLIN HFA,PROAIR HFA) 90 mcg/actuation inhaler 2 puff 2 puff inhalation Q6H While awake (RT) Blaze Armenta NP 2 puff at 02/14/22 1539 amitriptyline (ELAVIL) tablet 25 mg 25 mg oral Nightly Blaze Armenta NP 25 mg at 02/14/22 2109 sodium chloride 0.9% flush 0.5-20 mL 0.5-20 mL intra-catheter Q8H RODERICK Blaze Armenta NP 10 mL at 02/15/22 0444 And sodium chloride 0.9% flush 0.5-20 mL 0.5-20 mL intra-catheter PRN Blaze Armenta NP And Carrier Fluids for Secondary Infusion - 0.9% Sodium Chloride 30 mL intravenous PRN Blaze Armenta NP 30 mL at 02/10/22 0615 dextrose gel in packet 15 g 15 g oral Q15 Min PRN Blaze Armenta NP Or dextrose (D10W) 10% bolus 250 mL 250 mL intravenous Q15 Min PRN Blaze Armenta NP diphenhydrAMINE (BENADRYL) tab/cap 25 mg 25 mg oral Q4H PRN Neha Solo MD 25 mg at 02/15/22 0412 glucagon injection 1 mg 1 mg intramuscular Q30 Min PRN Blaze Armenta NP insulin glargine (LANTUS, SEMGLEE) 100 unit/mL injection 33 Units 0.25 Units/kg subcutaneous Nightly Blaze Armenta NP 33 Units at 02/14/22 2109 insulin lispro (HumaLOG, ADMELOG) 100 unit/mL injection 11 Units 0.083 Units/kg subcutaneous TID with meals Blaze Armenta NP 11 Units at 02/15/22 1154 meclizine (ANTIVERT) tablet 25 mg 25 mg oral TID PRN Blaze Armenta NP meropenem (MERREM) 500 mg in sodium chloride 0.9% 100 mL IVPB 500 mg intravenous Q6H RODERICK Neha Solo MD 200 mL/hr at 02/15/22 1159 500 mg at 02/15/22 1159 morphine injection 2 mg 2 mg intravenous Q4H PRN Mariel Florentino MD 2 mg at 02/15/22 1317 ondansetron ODT (ZOFRAN-ODT) disintegrating tablet 4 mg 4 mg oral Q6H PRN Blaze Armenta NP 4 mg at1 1316 Or ondansetron (ZOFRAN) injection 4 mg 4 mg intravenous Q6H PRN Blaze Armenta NP 4 mg at 02/14/22 0625 polyethylene glycol (MIRALAX) packet 17 g 17 g oral Daily PRN Blaze Armenta NP ramelteon (ROZEREM) tablet 8 mg 8 mg oral Nightly PRN Blaze Armenta NP 8 mg at 02/15/22 0218 rivaroxaban (XARELTO) tablet 20 mg 20 mg oral Daily with dinner Blaze Armenta NP 20 mg at 724 rOPINIRole (REQUIP) tablet 5 mg 5 mg oral Nightly Blaze Armenta, CURTIS 5 mg at 02/14/22 2108 sodium chloride 0.9% flush 5-10 mL 5-10 mL intra-catheter Q8H [facility] Neha Solo MD 10 mL at 02/15/22 1234 sodium chloride 0.9% flush 5-10 mL 5-10 mL intra-catheter PRN Neha Solo MD Assessment/Plan Recurrent UTI follow ID consult recommendations Imaging shows no signs of pyelonephritis Improved dysuria and right flank pain Leukocytosis improving Blood culture shows no growth, urine culture grew E coli DC macrobid. Monitor overnight. DM SSI, basal insulin & accuchecks ordered Restless leg syndrome GERD Breast Ca Hx PE on Xarelto Resumed home meds DVT Prophylaxis: Xarelto 20mg QD DEVI : Likely tomorrow. 02/17/22 * Elena Mathews, RD - 02/16/2022 2:10 PM CDT Nutrition Screen Assessment Note Patient screened for LOS Past Medical History: Diagnosis Date Adiposity obesity [...] US SOFT TISSUE ABSCESS DRAIN N/A 10/24/2014 Anthropometrics Weight: 128.3 kg (282 lb 14.4 oz) Admission Weight : 128.3 kg Weight Change: -1.85 kg (-4.10 lbs) IBW/kg (Calculated) : 47.6 kg Height: 154.9 cm (5' 1 ) Weight in (lb) to have BMI = 25: 132 BMI (Calculated): 53.5 Dietary Orders (From admission, onward) Start Ordered 02/09/222212 Adult Diet Restricted; Diabetic; Yes, patient is receiving insulin Diet effective now Question Answer Comment (MHB/MHE/FCI) Diet type Restricted Diabetic: Diabetic Patient receiving insulin: Yes, patient is receiving insulin 02/09/222211 Assessment / Impression: Patient screened for LOS Day 7. Patient admitted on 02/09/22 for cystitis.Past medical history of HTN, breast cancer, CHF, T2DM. She is on a diabetic diet and consuming 100%since 02/10. She has an overall good appetite except for some nausea she experienced this morning. She was experiencing nausea before admission for about 4 -5 days however it was not really affectingher appetite as much. Her UBW is around 285 lb. She has not noticed any weight loss. Her weight history in EMR shows no significant weight loss. She follows a diabetic diet at home and had no questions at this time. No acute nutrition issues at this time. Nutrition Follow-Up : 02/25/22 * Genaro Coy MD - 02/16/2022 12:27 PM CDT Progress Note Infectious Diseases Chief complaint: Recurrent urinary tract infection. Multiple antibiotics allergy Subjective Nausea associated with 1 loose stool. No clary diarrhea Objective Vitals: 02/16/22 0859 BP: 154/94 Pulse: 94 Resp: Temp: 36.2 ??C (97.1 ??F) SpO2: 99% Constitutional: Alert, oriented x3. In no distress. [...] 650 mg 650 mg oral Q4H PRN Blaze Armenta NP 650 mg at 02/15/22 1218 albuterol HFA (PROVENTIL HFA,VENTOLIN HFA,PROAIR HFA) 90 mcg/actuation inhaler 2 puff 2 puff inhalation Q6H While awake (RT) Blaze Armenta NP 2 puff at 02/15/222026 amitriptyline (ELAVIL) tablet 25 mg 25 mg oral Nightly Blaze Armenta NP 25 mg at 02/15/222013 sodium chloride 0.9% flush 0.5-20 mL 0.5-20 mL intra-catheter Q8H RODERICK Blaze Armenta NP 10 mL at 02/16/22 0520 And sodium chloride 0.9% flush 0.5-20 mL 0.5-20 mL intra-catheter PRN Blaze Armenta NP And Carrier Fluids for Secondary Infusion - 0.9% Sodium Chloride 30 mL intravenous PRN Blaze Armenta NP 30 mL at 02/10/22 0615 dextrose gel in packet 15 g 15 g oral Q15 Min PRN Blaze Armenta NP Or dextrose (D10W) 10% bolus 250 mL 250 mL intravenous Q15 Min PRN Blaze Armenta NP diphenhydrAMINE (BENADRYL) tab/cap 25 mg 25 mg oral Q4H PRN Neha Solo MD 25 mg at 02/15/22 0412 glucagon injection 1 mg 1 mg intramuscular Q30 Min PRN Blaze Armenta NP insulin glargine (LANTUS, SEMGLEE) 100 unit/mL injection 33 Units 0.25 Units/kg subcutaneous Nightly Blzae Armenta NP 33 Units at 02/15/222014 insulin lispro (HumaLOG, ADMELOG) 100 unit/mL injection 11 Units 0.083 Units/kg subcutaneous TID with meals Blaze Armenta NP 11 Units at 02/15/22 1644 meclizine (ANTIVERT) tablet 25 mg 25 mg oral TID PRN Blaze Armenta NP morphine injection 2 mg 2 mg intravenous Q4H PRN Mariel Florentino MD 2 mg at 02/16/22 1010 ondansetron ODT (ZOFRAN-ODT) disintegrating tablet 4 mg 4 mg oral Q6H PRN Blaze Armenta NP 4 mg at1 0755 Or ondansetron (ZOFRAN) injection 4 mg 4 mg intravenous Q6H PRN Blaze Armenta NP 4 mg at 02/14/22 0625 polyethylene glycol (MIRALAX) packet 17 g 17 g oral Daily PRN Blaze Armenta NP ramelteon (ROZEREM) tablet 8 mg 8 mg oral Nightly PRN Blaze Armenta NP 8 mg at 02/15/22 0218 rivaroxaban (XARELTO) tablet 20 mg 20 mg oral Daily with dinner Blaze Armenta NP 20 mg at 644 rOPINIRole (REQUIP) tablet 5 mg 5 mg oral Nightly Blaze Armenta NP 5 mg at 02/15/22 1905 sodium chloride 0.9% flush 5-10 mL 5-10 mL intra-catheter Q8H [facility] Neha Solo MD 10 mL at 02/15/22 2138 sodium chloride 0.9% flush 5-10 mL 5-10 mL intra-catheter PRN Neha Solo MD Allergies Allergen Reactions Ceftriaxone Anaphylaxis R Ceftriaxone Sodium Shortness of breath Cephalosporins Anaphylaxis Lorazepam Unknown Aggrevates restless leg syndrome Ciprofloxacin Rash Latex Rash Levofloxacin Hives and Unknown Lisinopril Swelling Meropenem Rash Piperacillin-Tazobactam Rash Metoclopramide Hcl Unknown Reslizumab Unknown Ketorolac Itching Macrobid [Nitrofurantoin] Flushing (skin) Metoclopramide [...] Other Family history of restless leg syndrome; Lab Results Component Value Date HGBA1C 7.7 (H) 02/11/2022 TSH 2.20 09/11/2021 TIBC 335 11/26/2015 INR 1.5 (H) 02/09/2022 DDIMER <150 (L) 08/01/2017 FERRITIN 121 11/26/2015 BNP 18 03/17/2018 CHOLHDL 4 01/24/2018 HCT 36.9 02/16/2022 MCH 29.0 02/16/2022 MCV 91.6 02/16/2022 MPV 9.8 02/16/2022 HDL 36 (L) 01/24/2018 RBC 4.03 02/16/2022 RDW 14.5 05/16/2017 WBC 12.4 (H) 02/16/2022 Assessment/Plan 1. Leukocytosis progressively improving white count is down to 12,000. Completed 7 days of IV antibiotic therapy. Microbial day 2 of 5. 2. Multiple antibiotics allergy. Patient states that she developed jitteriness with meropenem. No rash or abnormality on vital signs. 3. Type 2 diabetes stable blood sugar 4. Obesity with BMI of 53. Genaro Coy MD [facility] [place] [facility] [phone] * Mckenzie Hart MSW - 02/16/2022 9:15 AM CDT SW planned to see pt due to her high readmission rate, but CAT call initiated. SW to f/u at a latertime. * Genaro Coy MD - 02/15/2022 5:52 PM CDT Progress Note Infectious Diseases Chief complaint: Recurrent urinary tract infection. Multiple antibiotics allergy. Subjective No dysuria or abdominal pain. No nausea or vomiting. Complained of jitteriness with meropenem Objective Vitals: 02/15/22 1603 BP: 164/84 Pulse: 84 Resp: 20 Temp: 36.7 ??C (98 ??F) SpO2: 96% Constitutional: Alert, oriented x3. [...] 650 mg 650 mg oral Q4H PRN Blaze Armenta NP 650 mg at 02/15/22 1218 albuterol HFA (PROVENTIL HFA,VENTOLIN HFA,PROAIR HFA) 90 mcg/actuation inhaler 2 puff 2 puff inhalation Q6H While awake (RT) Blaze Armenta NP 2 puff at 02/15/22 1521 amitriptyline (ELAVIL) tablet 25 mg 25 mg oral Nightly Blaze Armenta NP 25 mg at 02/14/22 2109 sodium chloride 0.9% flush 0.5-20 mL 0.5-20 mL intra-catheter Q8H RODERICK Blaze Armenta NP 10 mL at 02/15/22 0444 And sodium chloride 0.9% flush 0.5-20 mL 0.5-20 mL intra-catheter PRN Blaze Armenta NP And Carrier Fluids for Secondary Infusion - 0.9% Sodium Chloride 30 mL intravenous PRN Blaze Armenta NP 30 mL at 02/10/22 0615 dextrose gel in packet 15 g 15 g oral Q15 Min PRN Blaze Armenta NP Or dextrose (D10W) 10% bolus 250 mL 250 mL intravenous Q15 Min PRN Blaze Armenta NP diphenhydrAMINE (BENADRYL) tab/cap 25 mg 25 mg oral Q4H PRN Neha Solo MD 25 mg at 02/15/22 0412 glucagon injection 1 mg 1 mg intramuscular Q30 Min PRN Blaze Armenta NP insulin glargine (LANTUS, SEMGLEE) 100 unit/mL injection 33 Units 0.25 Units/kg subcutaneous Nightly Blaze Armenta NP 33 Units at 02/14/22 210 insulin lispro (HumaLOG, ADMELOG) 100 unit/mL injection 11 Units 0.083 Units/kg subcutaneous TID with meals Blaze Armenta NP 11 Units at 02/15/22 1644 meclizine (ANTIVERT) tablet 25 mg 25 mg oral TID PRN Blaze Armenta NP morphine injection 2 mg 2 mg intravenous Q4H PRN Mariel Florentino MD 2 mg at 02/15/22 1732 nitrofurantoin monohydrate (MACROBID) capsule 100 mg 100 mg oral BID Antoinette Reed MD 100 mg at 02/15/22 1731 ondansetron ODT (ZOFRAN-ODT) disintegrating tablet 4 mg 4 mg oral Q6H PRN Blaze Armenta NP 4 mg at1 1316 Or ondansetron (ZOFRAN) injection 4 mg 4 mg intravenous Q6H PRN Blaze Armenta NP 4 mg at 02/14/22 0625 polyethylene glycol (MIRALAX) packet 17 g 17 g oral Daily PRN Blaze Armenta NP ramelteon (ROZEREM) tablet 8 mg 8 mg oral Nightly PRN Blaze Armenta NP 8 mg at 02/15/22 0218 rivaroxaban (XARELTO) tablet 20 mg 20 mg oral Daily with dinner Blaze Armenta NP 20 mg at rOPINIRole (REQUIP) tablet 5 mg 5 mg oral Nightly Blaze Armenta NP 5 mg at 02/14/222107 sodium chloride 0.9% flush 5-10 mL 5-10 mL intra-catheter Q8H RODERICK Neha Solo MD 10 mL at 02/15/22 1234 sodium chloride 0.9% flush 5-10 mL 5-10 mL intra-catheter PRN Neha Solo MD Allergies Allergen Reactions Ceftriaxone Anaphylaxis R [...] Other Family history of restless leg syndrome; Lab Results Component Value Date HGBA1C 7.7 (H) 02/11/2022 TSH 2.20 09/11/2021 TIBC 335 11/26/2015 INR 1.5 (H) 02/09/2022 DDIMER <150 (L) 08/01/2017 FERRITIN 121 11/26/2015 BNP 18 03/17/2018 CHOLHDL 4 01/24/2018 HCT 38.9 02/15/2022 MCH 29.2 02/15/2022 MCV 92.4 02/15/2022 MPV 9.9 02/15/2022 HDL 36 (L) 01/24/2018 RBC 4.21 02/15/2022 RDW 14.5 05/16/2017 WBC 14.5 (H) 02/15/2022 Assessment/Plan 1. Leukocytosis with white count trending down at 14,000. Patient is currently on meropenem day 3. Total antibiotics day 7. Okay to transition to MicroBid . Discharge planning okay in the next 24 hours if okay with others. 2. Multiple antibiotics allergy. Patient had developed rash with ciprofloxacin which she had tolerated in the past. Currently complain of jitteriness with meropenem. No rash. No tachycardia with stable blood pressure. 3. Type 2 diabetes with blood sugars ranging between 129-168. Genaro Coy MD [facility] [place] [facility] [phone] * Antoinette Reed MD - 02/15/2022 2:22 PM CDT General Medicine Daily Progress Subjective Chief complaint of Flank pain. Interval History: feels better today, still with mild right sided flank pain Past Medical History: Diagnosis Date Adiposity obesity Breast CA (CMS/HCC) (HCC) Cancer (CMS/HCC) (HCC) breast CHF (congestive heart failure) (CMS/HCC) (HCC) Depression Depression Diabetes (HCC) Disorder of thyroid Thyroid disease DVT (deep venous thrombosis) (CMS/HCC) (HCC) HX OTHER MEDICAL restless leg syndrome HX OTHER MEDICAL RLS Hypertension Hypertension Osteoarthritis osteoarthritis PE (pulmonary thromboembolism) (CMS/HCC) (HCC) Sleep apnea Objective Vitals: 24hr Min/Max: Temp Min: 36 ??C (96.8 ??F) Max: 36.8 ??C (98.2 ??F) Pulse Min: 74 Max: 88 BP Min: 134/85 Max: 163/104 Resp Min: 20 Max: 24 SpO2 Min: 93 % Max: 98 % Most Recent : Vitals: 02/15/22 0801 BP: 139/80 Pulse: 74 Resp: 20 Temp: 36.7 ??C (98 ??F) SpO2: 93% I/O last 2 completed shifts: In: 1690 [P.O.:1320; I.V.:370] Out: - I/O this shift: In: 830 [P.O.:720; I.V.:10; IV Piggyback:100] Out: - Review of systems : + right flank pain All other systems reviewed and found negative. Physical Exam GEN: Alert, well nourished in NAD HEENT: normocephalic, atraumatic, HEENT, GISELA RESP: CTAB , no added sounds CVS: RRR, no pedal edema, no murmurs, GI: Soft, moves with resp , non tender, no distended, MSKL: moves all extremities spontaneously INTEG: intact, no rash NEURO : Alert , oriented x 3 , no focal deficit Lab/Radiology/Diagnostic Review: Recent Labs Lab Units 02/15/22 0308 02/14/22 1224 02/13/22 0725 02/12/22 0524 WBC K/cumm 14.5* 18.2* 14.9* 15.6* HEMOGLOBIN g/dL 12.3 14.6 13.5 12.4 HEMATOCRIT % 38.9 46.3* 42.7 40.3 PLATELETS K/cumm 280 290 291 297 NEUTROS PCT % 72.8 77.3 71.0 71.4 LYMPHS PCT % 19.6 14.8 19.7 19.9 MONOS PCT % 5.9 6.3 7.2 6.6 EOS PCT % 1.1 0.8 1.3 1.3 Recent Labs Lab Units 02/15/22 1054 02/15/22 0801 02/15/22 0308 02/14/22 2051 02/14/22 1640 02/14/22 1224 02/13/22 0755 02/13/22 0725 02/12/22 0717 02/12/22 0524 02/11/22 0752 02/11/22 0255 02/09/22 2227 02/09/22 1312 SODIUM mmol/L -- -- 137 -- -- 137 -- 135 -- 137 -- 136 < > 141 POTASSIUM PLASMA mmol/L -- -- 4.4 -- -- 4.2 -- 4.5 -- 4.4 -- 4.4 < > 4.2 CHLORIDE mmol/L -- -- 102 -- -- 100 -- 101 -- 102 -- 98 < > 102 CO2 mmol/L -- -- 23 -- -- 27 -- 26 -- 27 -- 27 < > 26 ANIONGAP mmol/L -- -- 12 -- -- 10 -- 8 -- 8 -- 11 < > 13 GLUCOSE mg/dL -- -- 142 -- -- 111 -- 162 -- 166 -- 140 < > 217* POC GLUCOSE MONITOR mg/dL 129 130 -- 168 < > -- < > -- < > -- < > -- < > -- BUN SERUM mg/dL -- -- 17 -- -- 19 -- 19 -- 25 -- 22 < > 24 CREATININE mg/dL -- -- 0.50* -- -- 0.60 -- 0.60 -- 0.70 -- 0.70 < > 1.00 CALCIUM mg/dL -- -- 9.2 -- -- 9.7 -- 9.8 -- 9.3 -- 9.7 < > 10.2 ALBUMIN g/dL -- -- -- -- -- -- -- -- -- -- -- 3.7 -- 4.1 ALK PHOS Units/L -- -- -- -- -- -- -- -- -- -- -- 102 -- 108 ALT Units/L -- -- -- -- -- -- -- -- -- -- -- 19 -- 22 AST Units/L -- -- -- -- -- -- -- -- -- -- -- 15 -- 18 BILIRUBIN TOTAL mg/dL -- -- -- -- -- -- -- -- -- -- -- 0.8 -- 0.8 < > = values in this interval not displayed. @LLMAG4@ Current Facility-Administered Medications Medication Dose Route Frequency Provider Last Rate Last Admin acetaminophen (TYLENOL) tablet 650 mg 650 mg oral Q4H PRN Blaze Armenta NP 650 mg at 02/15/22 1218 albuterol HFA (PROVENTIL HFA,VENTOLIN HFA,PROAIR HFA) 90 mcg/actuation inhaler 2 puff 2 puff inhalation Q6H While awake (RT) Blaze Armenta NP 2 puff at 02/14/22 1539 amitriptyline (ELAVIL) tablet 25 mg 25 mg oral Nightly Blaze Armenta NP 25 mg at 02/14/22 2109 sodium chloride 0.9% flush 0.5-20 mL 0.5-20 mL intra-catheter Q8H RODERICK Blaze Armenta NP 10 mL at 02/15/22 0444 And sodium chloride 0.9% flush 0.5-20 mL 0.5-20 mL intra-catheter PRN Blaze Armenta NP And Carrier Fluids for Secondary Infusion - 0.9% Sodium Chloride 30 mL intravenous PRN Blaze Armenta NP 30 mL at 02/10/22 0615 dextrose gel in packet 15 g 15 g oral Q15 Min PRN Blaze Armenta NP Or dextrose (D10W) 10% bolus 250 mL 250 mL intravenous Q15 Min PRN Blaze Armenta NP diphenhydrAMINE (BENADRYL) tab/cap 25 mg 25 mg oral Q4H PRN Neha Solo MD 25 mg at 02/15/22 0412 glucagon injection 1 mg 1 mg intramuscular Q30 Min PRN Blaze Armenta NP insulin glargine (LANTUS, SEMGLEE) 100 unit/mL injection 33 Units 0.25 Units/kg subcutaneous Nightly Blaze Armenta NP 33 Units at 02/14/22 2109 insulin lispro (HumaLOG, ADMELOG) 100 unit/mL injection 11 Units 0.083 Units/kg subcutaneous TID with meals Blaze Armenta NP 11 Units at 02/15/22 1154 meclizine (ANTIVERT) tablet 25 mg 25 mg oral TID PRN Blaze Armenta NP meropenem (MERREM) 500 mg in sodium chloride 0.9% 100 mL IVPB 500 mg intravenous Q6H Neha Oh MD 200 mL/hr at 02/15/22 1159 500 mg at 02/15/22 1159 morphine injection 2 mg 2 mg intravenous Q4H PRN Mariel Florentino MD 2 mg at 02/15/22 1317 ondansetron ODT (ZOFRAN-ODT) disintegrating tablet 4 mg 4 mg oral Q6H PRN Blaze Armenta NP 4 mg at1 1316 Or ondansetron (ZOFRAN) injection 4 mg 4 mg intravenous Q6H PRN Blaze Armenta NP 4 mg at 02/14/22 0625 polyethylene glycol (MIRALAX) packet 17 g 17 g oral Daily PRN Blaze Armenta NP ramelteon (ROZEREM) tablet 8 mg 8 mg oral Nightly PRN Blaze Armenta NP 8 mg at 02/15/22 0218 rivaroxaban (XARELTO) tablet 20 mg 20 mg oral Daily with dinner Blaze Armenta NP 20 mg at 724 rOPINIRole (REQUIP) tablet 5 mg 5 mg oral Nightly Blaze Armenta NP 5 mg at 02/14/22 2108 sodium chloride 0.9% flush 5-10 mL 5-10 mL intra-catheter Q8H [facility] Neha Solo MD 10 mL at 02/15/22 1234 sodium chloride 0.9% flush 5-10 mL 5-10 mL intra-catheter PRN Neha Solo MD Assessment/Plan Recurrent UTI follow ID consult recommendations Imaging shows no signs of pyelonephritis Improved dysuria and right flank pain to complete meropenem day 3 today Leukocytosis improving Blood culture shows no growth, urine culture grew E coli DM SSI, basal insulin & accuchecks ordered Restless leg syndrome GERD Breast Ca Hx PE on Xarelto Resumed home meds DVT Prophylaxis: Xarelto 20mg QD DEVI : Likely tomorrow. 02/16/22 * Jil Valdez COTA - 02/15/2022 8:05 AM CDT Occupational Therapy 02/15/22 0805 General Session Type Treatment OT Received On 02/15/22 Safe Environment (patient sitting EOB) Subjective Agreeable to Therapy Subjective Comment I am still hopeful with going home today due to my blood counts Family/Caregiver Present No Pain Assessment Pain Assessment No/denies pain Other Comments Comments Patient completed BUE HEP and voiced understanding of ECT and handouts were issued Plan Plan Discharge Recommendation/Plan OT Recommendation Home with intermittent assist;Home with family Patient has met all goals and will be DC from skilled OT services. Educated patient to continue doing for self along with exercises to maintain and/or increase strength/ROM and endurance. Patient wasleft sitting EOB eating breakfast. * Genaro Coy MD - 02/14/2022 5:30 PM CDT Progress Note Infectious Diseases Chief complaint: Recurrent urinary tract. Multiple antibiotic allergies Subjective No fever or chills. Generalized weakness improved. Itching significantly improved Objective Vitals: 02/14/22 1600 BP: 152/87 Pulse: 85 Resp: 20 Temp: 36.8 ??C (98.2 ??F) SpO2: 97% Constitutional: Alert, oriented x3. In no distress. [...] 650 mg 650 mg oral Q4H PRN Blaze Armenta NP 650 mg at 02/12/22 1603 albuterol HFA (PROVENTIL HFA,VENTOLIN HFA,PROAIR HFA) 90 mcg/actuation inhaler 2 puff 2 puff inhalation Q6H While awake (RT) Blaze Armenta NP 2 puff at 02/14/22 1539 amitriptyline (ELAVIL) tablet 25 mg 25 mg oral Nightly Blaze Armenta NP 25 mg at 02/13/222015 sodium chloride 0.9% flush 0.5-20 mL 0.5-20 mL intra-catheter Q8H [facility] Blaze Armenta NP 10 mL at 02/14/22 1321 And sodium chloride 0.9% flush 0.5-20 mL 0.5-20 mL intra-catheter PRN Blaze Armenta NP And Carrier Fluids for Secondary Infusion - 0.9% Sodium Chloride 30 mL intravenous PRN Blaze Armenta NP 30 mL at 02/10/22 0615 dextrose gel in packet 15 g 15 g oral Q15 Min PRN Blaze Armenta NP Or dextrose (D10W) 10% bolus 250 mL 250 mL intravenous Q15 Min PRN Blaze Armenta NP diphenhydrAMINE (BENADRYL) tab/cap 25 mg 25 mg oral Q4H PRN Neha Solo MD 25 mg at 02/14/22 1411 glucagon injection 1 mg 1 mg intramuscular Q30 Min PRN Blaze Armenta NP insulin glargine (LANTUS, SEMGLEE) 100 unit/mL injection 33 Units 0.25 Units/kg subcutaneous Nightly Blaze Armenta NP 33 Units at 02/13/222015 insulin lispro (HumaLOG, ADMELOG) 100 unit/mL injection 11 Units 0.083 Units/kg subcutaneous TID with meals Blaze Armenta NP 11 Units at 02/14/22 1723 meclizine (ANTIVERT) tablet 25 mg 25 mg oral TID PRN Blaze Armenta NP meropenem (MERREM) 500 mg in sodium chloride 0.9% 100 mL IVPB 500 mg intravenous Q6H Neha Oh MD 200 mL/hr at 02/14/22 1142 500 mg at 02/14/22 1142 morphine injection 2 mg 2 mg intravenous Q4H PRN Mariel Florentino MD 2 mg at 02/14/22 1133 ondansetron ODT (ZOFRAN-ODT) disintegrating tablet 4 mg 4 mg oral Q6H PRN Blaze Armenta NP 4 mg at1 1043 Or ondansetron (ZOFRAN) injection 4 mg 4 mg intravenous Q6H PRN Blaze Armenta NP 4 mg at 02/14/22 0625 polyethylene glycol (MIRALAX) packet 17 g 17 g oral Daily PRN Blaze Armenta NP ramelteon (ROZEREM) tablet 8 mg 8 mg oral Nightly PRN Blaze Armenta NP rivaroxaban (XARELTO) tablet 20 mg 20 mg oral Daily with dinner Blaze Armenta NP 20 mg at 724 rOPINIRole (REQUIP) tablet 5 mg 5 mg oral Nightly Blaze Armenta NP 5 mg at 02/13/222022 sodium chloride 0.9% flush 5-10 mL 5-10 mL intra-catheter Q8H RODERICK Neha Solo MD 10 mL at 02/14/22 1322 sodium chloride 0.9% flush 5-10 mL 5-10 mL intra-catheter PRN Neha Solo MD Allergies Allergen Reactions Ceftriaxone Anaphylaxis R [...] Other Family history of restless leg syndrome; Lab Results Component Value Date HGBA1C 7.7 (H) 02/11/2022 TSH 2.20 09/11/2021 TIBC 335 11/26/2015 INR 1.5 (H) 02/09/2022 DDIMER <150 (L) 08/01/2017 FERRITIN 121 11/26/2015 BNP 18 03/17/2018 CHOLHDL 4 01/24/2018 HCT 46.3 (H) 02/14/2022 MCH 29.0 02/14/2022 MCV 92.0 02/14/2022 MPV 10.1 02/14/2022 HDL 36 (L) 01/24/2018 RBC 5.03 02/14/2022 RDW 14.5 05/16/2017 WBC 18.2 (H) 02/14/2022 Assessment/Plan 1. Leukocytosis with waxing and waning of WBC count. WBC count is up at 18,000. Patient has been switched to meropenem day 2. Previously was on 4 days of ciprofloxacin. If persistent leukocytosis mayconsider repeating CT chest abdomen and pelvis versus Ceretec scan 2. Type 2 diabetes blood sugars ranging from 05/11 to 199 3. Multiple antibiotics allergy. Ceftriaxone causes anaphylaxis. Zosyn causes rash. Levofloxacin cause unknown but previously tolerated ciprofloxacin. Patient currently has rash with ciprofloxacin Genaro Coy MD [facility] [place] [facility] [phone] * Neha Solo MD - 02/14/2022 4:46 PM CDT General Medicine Daily Progress DOA: 02/09/2022 Subjective Chief complaint of . Interval History: Improved dysuria on meropenem day 3 Leukocytosis worsening 18.2 from 14.9 Blood culture shows no growth, urine culture grew E coli Past Medical History: Diagnosis Date Adiposity obesity Breast CA (CMS/HCC) (HCC) Cancer (CMS/HCC) (HCC) breast CHF (congestive heart failure) (CMS/HCC) (HCC) Depression Depression Diabetes (HCC) Disorder of thyroid Thyroid disease DVT (deep venous thrombosis) (CMS/HCC) (HCC) HX OTHER MEDICAL restless leg syndrome HX OTHER MEDICAL RLS Hypertension Hypertension Osteoarthritis osteoarthritis PE (pulmonary thromboembolism) (CMS/HCC) (HCC) Sleep apnea Objective Vitals: 24hr Min/Max: Temp Min: 36.6 ??C (97.9 ??F) Max: 36.8 ??C (98.2 ??F) Pulse Min: 77 Max: 88 BP Min: 128/76 Max: 165/95 Resp Min: 16 Max: 20 SpO2 Min: 92 % Max: 97 % Most Recent : Vitals: 02/14/22 1600 BP: 152/87 Pulse: 85 Resp: 20 Temp: 36.8 ??C (98.2 ??F) SpO2: 97% I/O last 2 completed shifts: In: 1646 [P.O.:1440; I.V.:206] Out: 1700 [Urine:1700] I/O this shift: In: 720 [P.O.:720] Out: - Physical Exam: Physical Exam Constitutional: Appearance: Normal appearance. She is obese. She is ill-appearing. She is not diaphoretic. HENT: Head: Normocephalic. Nose: Nose normal. No congestion. Mouth/Throat: Mouth: Mucous membranes are moist. Pharynx: Oropharynx is clear. Eyes: General: No scleral icterus. Conjunctiva/sclera: Conjunctivae normal. Pupils: Pupils are equal, round, and reactive to light. Cardiovascular: Rate and Rhythm: Normal rate. Pulses: Normal pulses. Heart sounds: Normal heart sounds. Pulmonary: Effort: Pulmonary effort is normal. No respiratory distress. Breath sounds: Normal breath sounds. Abdominal: General: Abdomen is flat. Bowel sounds are normal. Tenderness: There is right CVA tenderness and left CVA tenderness. Musculoskeletal: General: No swelling. Normal range of motion. Cervical back: Normal range of motion. No rigidity. Right lower leg: No edema. Left lower leg: No edema. Skin: General: Skin is warm. Capillary Refill: Capillary refill takes less than 2 seconds. Coloration: Skin is not jaundiced. Neurological: General: No focal deficit present. Mental Status: She is alert. Mental status is at baseline. Psychiatric: Mood and Affect: Mood normal. Lab/Radiology/Diagnostic Review: Laboratory review: CBC: Lab Results Component Value Date WBC 18.2 (H) 02/14/2022 RBC 5.03 02/14/2022 HGB 14.6 02/14/2022 HCT 46.3 (H) 02/14/2022 MCV 92.0 02/14/2022 MCH 29.0 02/14/2022 MCHC 31.5 (L) 02/14/2022 RDWCV 14.2 02/14/2022 RDWSD 48.0 02/14/2022 MPV 10.1 02/14/2022 NRBCABS 0.00 02/14/2022 Current Facility-Administered Medications Medication Dose Route Frequency Provider Last Rate Last Admin acetaminophen (TYLENOL) tablet 650 mg 650 mg oral Q4H PRN Blaze Armenta NP 650 mg at 02/12/22 1603 albuterol HFA (PROVENTIL HFA,VENTOLIN HFA,PROAIR HFA) 90 mcg/actuation inhaler 2 puff 2 puff inhalation Q6H While awake (RT) Blaze Armenta NP 2 puff at 02/14/22 1539 amitriptyline (ELAVIL) tablet 25 mg 25 mg oral Nightly Blaze Armenta NP 25 mg at 02/13/222015 sodium chloride 0.9% flush 0.5-20 mL 0.5-20 mL intra-catheter Q8H [facility] Blaze Armenta NP 10 mL at 02/14/22 1321 And sodium chloride 0.9% flush 0.5-20 mL 0.5-20 mL intra-catheter PRN Blaze Armenta NP And Carrier Fluids for Secondary Infusion - 0.9% Sodium Chloride 30 mL intravenous PRN Blaze Armenta NP 30 mL at 02/10/22 0615 dextrose gel in packet 15 g 15 g oral Q15 Min PRN Blaze Armenta NP Or dextrose (D10W) 10% bolus 250 mL 250 mL intravenous Q15 Min PRN Blaze Armenta NP diphenhydrAMINE (BENADRYL) tab/cap 25 mg 25 mg oral Q4H PRN Neha Solo MD 25 mg at 02/14/22 1411 glucagon injection 1 mg 1 mg intramuscular Q30 Min PRN Blaze Armenta NP insulin glargine (LANTUS, SEMGLEE) 100 unit/mL injection 33 Units 0.25 Units/kg subcutaneous Nightly Blaze Armenta NP 33 Units at 02/13/22 2016 insulin lispro (HumaLOG, ADMELOG) 100 unit/mL injection 11 Units 0.083 Units/kg subcutaneous TID with meals Blaze Armenta NP 11 Units at 02/14/22 1133 meclizine (ANTIVERT) tablet 25 mg 25 mg oral TID PRN Blaze Armenta NP meropenem (MERREM) 500 mg in sodium chloride 0.9% 100 mL IVPB 500 mg intravenous Q6H Neha Oh MD 200 mL/hr at 02/14/22 1142 500 mg at 02/14/22 1142 morphine injection 2 mg 2 mg intravenous Q4H PRN Mariel Florentino MD 2 mg at 02/14/22 1133 ondansetron ODT (ZOFRAN-ODT) disintegrating tablet 4 mg 4 mg oral Q6H PRN Blaze Armenta NP 4 mg at1 1043 Or ondansetron (ZOFRAN) injection 4 mg 4 mg intravenous Q6H PRN Blaze Armenta NP 4 mg at 02/14/22 0625 polyethylene glycol (MIRALAX) packet 17 g 17 g oral Daily PRN Blaze Armenta NP ramelteon (ROZEREM) tablet 8 mg 8 mg oral Nightly PRN Blaze Armenta NP rivaroxaban (XARELTO) tablet 20 mg 20 mg oral Daily with dinner Blaze Armenta NP 20 mg at rOPINIRole (REQUIP) tablet 5 mg 5 mg oral Nightly Blaze Armenta NP 5 mg at 02/13/222022 sodium chloride 0.9% flush 5-10 mL 5-10 mL intra-catheter Q8H Neha Oh MD 10 mL at 02/14/22 1322 sodium chloride 0.9% flush 5-10 mL 5-10 mL intra-catheter PRN Neha Solo MD Assessment/Plan Principal Problem: Cystitis Active Problems: Essential hypertension History of pulmonary embolism Type 2 diabetes mellitus with neurologic complication, without long-term current use of insulin ([facility] ([facility]) Lab test positive for detection of COVID-19 virus Plan # recurrent UTI to rule out pyelonephritis -monitor vital -follow ID consult recommendations -imaging shows no signs of pyelonephritis Improved dysuria on meropenem day 3 Leukocytosis worsening 18.2 from 14.9 Blood culture shows no growth, urine culture grew E coli #HFpEF (diastolic heart failure) -follow as outpatient # MORBID OBESITY(POA) -DIETITIAN REFERRAL -FOLLOW WITH PCP IN NEED FOR BARIATRIC SURGERY IN THE FUTURE # asymptomatic COVID infection 3 weeks ago -repeat COVID test -on room air #DM -FSG q.6 hours -on insulin regimen # chronic dizziness -meclizine 25 mg t.i.d. # VTE prophylaxis On Xarelto 20 mg orally # others -patient is on aromatase inhibitor at home to be reconciled DVT prophylaxis: On Xarelto GI prophylaxis: Ppi CODE status: Full Code CODE status: Full Code Discharge disposition: Home * Jimmie Su, ADMINISTRATIVE JUDGE - 02/14/2022 10:58 AM CDT Physical Therapy 02/14/22 1058 PT Last Visit Session Type Discharge PT Missed Visit Reason Other (comment) (Pt is independent w/all transfers and ambulation. Discussed discontinuing skilled PT w/pt, and pt's RN, Serena Blackman All are in agreement to d/c from PT.) Other Comments Other PT Comments Pt was observed ambulating in the hallway independent of assist of staff. Pt was using her wheel walker, and ambulating very well. As stated above, will now d/c from skilled PT. If situation should change, please send new orders. Thank you. Recommendation/Plan PT Recommendation/Plan (S) Home with caregiver;Home with family * Jil Valdez COTA - 02/14/2022 9:28 AM CDT Occupational Therapy 02/14/22 0985 General Session Type Treatment OT Received On 02/14/22 Safe Environment (sitting EOB) Subjective Agreeable to Therapy Subjective Comment I would like to go out in the hallway and see what I can do Family/Caregiver Present No Current Functional Status OT Functional Mobility Patient completed sit <> stand from EOB with I. Patient completd functional mobility within room including item retrieval and hallways ~145 feet with supervision. OT Self Care Patient demonstrates indpendent with all aspect of toileting. Patient demonstrates don/doff of socks sitting EOB with I. Precautions Precautions Fall risk Pain Assessment Pain Assessment No/denies pain Plan Plan Continue with current plan Recommendation/Plan OT Recommendation Home with intermittent assist;Home with family Educated the patient to the role of occupational therapy, plan of care, goals of therapy, rationalefor progressing mobility and home safety and PLB techniques RN notified of session outcome. Patient was left in sitting EOB with all needs met and equipment intact. Safety measures include handoff to nurse/tech, oriented to call light and placed within reach,personal items within reach, and bed placed in lowest position. Mobility and ADL status posted at bedside and within medical record. * Jil Valdez COTA - 02/14/2022 7:54 AM CDT Occupational Therapy 02/14/22 0754 General Session Type Treatment OT Missed Visit Reason Unavailable (patient sitting EOB eating breakfast) * Neha Solo MD - 02/13/2022 7:51 AM CDT General Medicine Daily Progress DOA: 02/09/2022 Subjective Chief complaint of . Interval History: Afebrile in 72 hours, leukocytosis improving 14.9 from 15.8, ciprofloxacin IV discontinued on day 3due to allergic reaction in the form of itching. Meropenem initiated day 2 today -urine culture grew E coli, blood culture prelim shows no growth -on room air, asymptomatic COVID infection -midline placed due to poor vascular access Past Medical History: Diagnosis Date Adiposity obesity Breast CA (CMS/HCC) (HCC) Cancer (CMS/HCC) (HCC) breast CHF (congestive heart failure) (CMS/HCC) (HCC) Depression Depression Diabetes (HCC) Disorder of thyroid Thyroid disease DVT (deep venous thrombosis) (CMS/HCC) ([facility]) HX OTHER MEDICAL restless leg syndrome HX OTHER MEDICAL RLS Hypertension Hypertension Osteoarthritis osteoarthritis PE (pulmonary thromboembolism) (CMS/HCC) ([facility]) Sleep apnea Objective Vitals: 24hr Min/Max: Temp Min: 36.3 ??C (97.4 ??F) Max: 36.9 ??C (98.5 ??F) Pulse Min: 69 Max: 84 BP Min: 147/83 Max: 162/91 Resp Min: 18 Max: 20 SpO2 Min: 94 % Max: 97 % Most Recent : Vitals: 02/13/22 0614 BP: 151/98 Pulse: 78 Resp: Temp: 36.9 ??C (98.5 ??F) SpO2: 94% I/O last 2 completed shifts: In: 870 [P.O.:870] Out: - No intake/output data recorded. Physical Exam: Physical Exam Constitutional: Appearance: Normal appearance. She is obese. HENT: Head: Normocephalic. Nose: Nose normal. No congestion. Eyes: General: No scleral icterus. Conjunctiva/sclera: Conjunctivae normal. Pupils: Pupils are equal, round, and reactive to light. Cardiovascular: Rate and Rhythm: Normal rate. Pulses: Normal pulses. Heart sounds: Normal heart sounds. Pulmonary: Effort: Pulmonary effort is normal. Abdominal: General: Abdomen is flat. Bowel sounds are normal. There is no distension. Musculoskeletal: General: No swelling. Normal range of motion. Cervical back: Normal range of motion. Skin: General: Skin is warm. Capillary Refill: Capillary refill takes less than 2 seconds. Coloration: Skin is not jaundiced. Neurological: General: No focal deficit present. Mental Status: She is alert. Mental status is at baseline. Psychiatric: Mood and Affect: Mood normal. Lab/Radiology/Diagnostic Review: Laboratory review: Chemistry CMP: Lab Results Component Value Date ALBUMIN 3.7 02/11/2022 BUNSER 25 02/12/2022 CALCIUM 9.3 02/12/2022 CO2 27 02/12/2022 CHLORIDE 102 02/12/2022 CREATININE 0.70 02/12/2022 GLUCOSE 135 02/13/2022 GLUCOSE 166 02/12/2022 POTASSIUM 4.4 02/12/2022 SODIUM 137 02/12/2022 BILITOT 0.8 02/11/2022 PROT 7.9 02/11/2022 ALT 19 02/11/2022 AST 15 02/11/2022 ALKPHOS 102 02/11/2022 Current Facility-Administered Medications Medication Dose Route Frequency Provider Last Rate Last Admin acetaminophen (TYLENOL) tablet 650 mg 650 mg oral Q4H PRN Blaze Armenta NP 650 mg at 02/12/22 1603 albuterol HFA (PROVENTIL HFA,VENTOLIN HFA,PROAIR HFA) 90 mcg/actuation inhaler 2 puff 2 puff inhalation Q6H While awake (RT) Blaze Armenta NP 2 puff at 02/12/22 204 amitriptyline (ELAVIL) tablet 25 mg 25 mg oral Nightly Blaze Armenta NP 25 mg at 02/12/22 210 sodium chloride 0.9% flush 0.5-20 mL 0.5-20 mL intra-catheter Q8H [facility] Blaze Armenta NP 10 mL at 02/13/22 0553 And sodium chloride 0.9% flush 0.5-20 mL 0.5-20 mL intra-catheter PRN Blaze Armenta NP And Carrier Fluids for Secondary Infusion - 0.9% Sodium Chloride 30 mL intravenous PRN Blaze Armenta NP 30 mL at 02/10/22 0615 dextrose gel in packet 15 g 15 g oral Q15 Min PRN Blaze Armenta NP Or dextrose (D10W) 10% bolus 250 mL 250 mL intravenous Q15 Min PRN Blaze Armenta NP diphenhydrAMINE (BENADRYL) injection 25 mg 25 mg intravenous Q6H PRN Neha Solo MD 25 mg at 02/12/22 0749 glucagon injection 1 mg 1 mg intramuscular Q30 Min PRN Blaze Armenta NP insulin glargine (LANTUS, SEMGLEE) 100 unit/mL injection 33 Units 0.25 Units/kg subcutaneous Nightly Blaze Armenta NP 33 Units at 02/12/222101 insulin lispro (HumaLOG, ADMELOG) 100 unit/mL injection 0-10 Units 0-10 Units subcutaneous TID withmeals Blaze Armenta NP 2 Units at 02/12/221725 insulin lispro (HumaLOG, ADMELOG) 100 unit/mL injection 0-5 Units 0-5 Units subcutaneous Nightly Blaze Armenta NP 1 Units at 02/12/222101 insulin lispro (HumaLOG, ADMELOG) 100 unit/mL injection 11 Units 0.083 Units/kg subcutaneous TID with meals Blaze Armenta NP 11 Units at 02/12/221725 lidocaine PF (XYLOCAINE) 10 mg/mL (1 %) preservative free injection 10-20 mg 1-2 mL subcutaneous Once Neha Solo MD meclizine (ANTIVERT) tablet 25 mg 25 mg oral TID PRN Blaze Armenta NP meropenem (MERREM) 500 mg in sodium chloride 0.9% 100 mL IVPB 500 mg intravenous Q6H [facility] Neha Solo MD morphine injection 2 mg 2 mg intravenous Q4H PRN Mariel Florentino MD 2 mg at 02/13/22 0307 ondansetron ODT (ZOFRAN-ODT) disintegrating tablet 4 mg 4 mg oral Q6H PRN Blaze Armenta NP Or ondansetron (ZOFRAN) injection 4 mg 4 mg intravenous Q6H PRN Blaze Armenta NP 4 mg at 02/11/222014 polyethylene glycol (MIRALAX) packet 17 g 17 g oral Daily PRN Blaze Armenta NP ramelteon (ROZEREM) tablet 8 mg 8 mg oral Nightly PRN Blaze Armenta NP rivaroxaban (XARELTO) tablet 20 mg 20 mg oral Daily with dinner Blaze Armenta NP 20 mg at rOPINIRole (REQUIP) tablet 5 mg 5 mg oral Nightly Blaze Armenta NP 5 mg at 02/12/222112 sodium chloride 0.9% flush 5-10 mL 5-10 mL intra-catheter Q8H [facility] Neha Solo MD sodium chloride 0.9% flush 5-10 mL 5-10 mL intra-catheter PRN Neha Solo MD Assessment/Plan Principal Problem: Cystitis Active Problems: Essential hypertension History of pulmonary embolism Type 2 diabetes mellitus with neurologic complication, without long-term current use of insulin (CMS/HCC) ([facility]) Lab test positive for detection of COVID-19 virus Plan # recurrent UTI to rule out pyelonephritis -monitor vital -follow ID consult recommendations -imaging shows no signs of pyelonephritis -leukocytosis improving -Patient has itching while on ciprofloxacin which was discontinued Afebrile in 72 hours, leukocytosis improving 14.9 from 15.8, ciprofloxacin IV discontinued on day 3due to allergic reaction in the form of itching. Meropenem initiated day 2 today # asymptomatic COVID infection 3 weeks ago -repeat COVID test -on room air #DM -FSG q.6 hours -on insulin regimen # chronic dizziness -meclizine 25 mg t.i.d. # VTE prophylaxis On Xarelto 20 mg orally # others -patient is on aromatase inhibitor at home to be reconciled DVT prophylaxis: On Xarelto GI prophylaxis: Ppi CODE status: Full Code CODE status: Full Code Discharge disposition: Home * Neha Solo MD - 02/12/2022 3:37 PM CDT General Medicine Daily Progress DOA: 02/09/2022 Subjective Chief complaint of . Interval History: -Patient has itching while on ciprofloxacin which was discontinued -Urine culture grew E coli sensitive to carbapenems, patient was started on meropenem without any allergic reaction to be given for 3 days -on room air Past Medical History: Diagnosis Date Adiposity obesity Breast CA (CMS/HCC) (HCC) Cancer (CMS/HCC) (HCC) breast CHF (congestive heart failure) (CMS/HCC) (HCC) Depression Depression Diabetes (HCC) Disorder of thyroid Thyroid disease DVT (deep venous thrombosis) (CMS/HCC) (HCC) HX OTHER MEDICAL restless leg syndrome HX OTHER MEDICAL RLS Hypertension Hypertension Osteoarthritis osteoarthritis PE (pulmonary thromboembolism) (CMS/HCC) (HCC) Sleep apnea Objective Vitals: 24hr Min/Max: Temp Min: 36.5 ??C (97.7 ??F) Max: 36.8 ??C (98.2 ??F) Pulse Min: 76 Max: 91 BP Min: 146/84 Max: 164/95 Resp Min: 18 Max: 22 SpO2 Min: 93 % Max: 97 % Most Recent : Vitals: 02/12/22 1452 BP: Pulse: 84 Resp: 18 Temp: SpO2: 97% I/O last 2 completed shifts: In: 1810 [P.O.:1800; I.V.:10] Out: - I/O this shift: In: 240 [P.O.:240] Out: - Physical Exam: Physical Exam Constitutional: Appearance: Normal appearance. She is ill-appearing. She is not diaphoretic. HENT: Head: Normocephalic. Nose: Nose normal. No congestion. Mouth/Throat: Mouth: Mucous membranes are moist. Pharynx: Oropharynx is clear. No oropharyngeal exudate. Eyes: General: No scleral icterus. Conjunctiva/sclera: Conjunctivae normal. Pupils: Pupils are equal, round, and reactive to light. Cardiovascular: Rate and Rhythm: Normal rate and regular rhythm. Pulses: Normal pulses. Heart sounds: Normal heart sounds. Pulmonary: Effort: Pulmonary effort is normal. No respiratory distress. Breath sounds: Normal breath sounds. Abdominal: General: Abdomen is flat. Bowel sounds are normal. There is no distension. Musculoskeletal: General: No swelling. Normal range of motion. Cervical back: Normal range of motion. Skin: General: Skin is warm. Capillary Refill: Capillary refill takes less than 2 seconds. Coloration: Skin is not jaundiced. Neurological: General: No focal deficit present. Mental Status: She is alert. Mental status is at baseline. Psychiatric: Mood and Affect: Mood normal. Lab/Radiology/Diagnostic Review: Laboratory review: Chemistry CMP: Lab Results Component Value Date ALBUMIN 3.7 02/11/2022 BUNSER 25 02/12/2022 CALCIUM 9.3 02/12/2022 CO2 27 02/12/2022 CHLORIDE 102 02/12/2022 CREATININE 0.70 02/12/2022 GLUCOSE 125 02/12/2022 GLUCOSE 166 02/12/2022 POTASSIUM 4.4 02/12/2022 SODIUM 137 02/12/2022 BILITOT 0.8 02/11/2022 PROT 7.9 02/11/2022 ALT 19 02/11/2022 AST 15 02/11/2022 ALKPHOS 102 02/11/2022 Current Facility-Administered Medications Medication Dose Route Frequency Provider Last Rate Last Admin acetaminophen (TYLENOL) tablet 650 mg 650 mg oral Q4H PRN Blaze Armenta NP 650 mg at 02/09/22 2233 albuterol HFA (PROVENTIL HFA,VENTOLIN HFA,PROAIR HFA) 90 mcg/actuation inhaler 2 puff 2 puff inhalation Q6H While awake (RT) Blaze Armenta NP 2 puff at 02/12/22 1445 amitriptyline (ELAVIL) tablet 25 mg 25 mg oral Nightly Blaze Armenta NP 25 mg at 02/11/22 2058 sodium chloride 0.9% flush 0.5-20 mL 0.5-20 mL intra-catheter Q8H [facility] Blaze Armenta NP 10 mL at 02/12/22 1423 And sodium chloride 0.9% flush 0.5-20 mL 0.5-20 mL intra-catheter PRN Blaze Armenta NP And Carrier Fluids for Secondary Infusion - 0.9% Sodium Chloride 30 mL intravenous PRN Blaze Armenta NP 30 mL at 02/10/22 0615 ciprofloxacin (CIPRO) tablet 500 mg 500 mg oral BID - special Neha Solo MD dextrose gel in packet 15 g 15 g oral Q15 Min PRN Blaze Armenta NP Or dextrose (D10W) 10% bolus 250 mL 250 mL intravenous Q15 Min PRN Blaze Armenta NP diphenhydrAMINE (BENADRYL) injection 25 mg 25 mg intravenous Q6H PRN Neha Solo MD 25 mg at 02/12/22 0749 glucagon injection 1 mg 1 mg intramuscular Q30 Min PRN Blaze Armenta NP insulin glargine (LANTUS, SEMGLEE) 100 unit/mL injection 33 Units 0.25 Units/kg subcutaneous Nightly Blaze Armenta NP 33 Units at 02/11/222057 insulin lispro (HumaLOG, ADMELOG) 100 unit/mL injection 0-10 Units 0-10 Units subcutaneous TID withmeals Blaze Armenta NP 2 Units at 02/12/22 0802 insulin lispro (HumaLOG, ADMELOG) 100 unit/mL injection 0-5 Units 0-5 Units subcutaneous Nightly Blaze Armenta NP 3 Units at 02/11/222057 insulin lispro (HumaLOG, ADMELOG) 100 unit/mL injection 11 Units 0.083 Units/kg subcutaneous TID with meals Blaze Armenta NP 11 Units at 02/12/22 1303 meclizine (ANTIVERT) tablet 25 mg 25 mg oral TID PRN Blaze Armenta NP meropenem (MERREM) 500 mg in sodium chloride 0.9% 100 mL IVPB 500 mg intravenous Q8H [facility] Nhea Solo MD 200 mL/hr at 02/12/22 1422 500 mg at 02/12/22 1422 morphine injection 2 mg 2 mg intravenous Q4H PRN Mariel Florentino MD 2 mg at 02/12/22 1422 ondansetron ODT (ZOFRAN-ODT) disintegrating tablet 4 mg 4 mg oral Q6H PRN Blaze Armenta NP Or ondansetron (ZOFRAN) injection 4 mg 4 mg intravenous Q6H PRN Blaze Armenta NP 4 mg at 02/11/222014 polyethylene glycol (MIRALAX) packet 17 g 17 g oral Daily PRN Blaze Armenta NP ramelteon (ROZEREM) tablet 8 mg 8 mg oral Nightly PRN Blaze Armenta NP rivaroxaban (XARELTO) tablet 20 mg 20 mg oral Daily with dinner Blaze Armenta NP 20 mg at rOPINIRole (REQUIP) tablet 5 mg 5 mg oral Nightly Blaze Armenta NP 5 mg at 02/11/222057 Assessment/Plan Principal Problem: Cystitis Active Problems: Essential hypertension History of pulmonary embolism Type 2 diabetes mellitus with neurologic complication, without long-term current use of insulin ([facility]) ([facility]) Lab test positive for detection of COVID-19 virus Plan # recurrent UTI to rule out pyelonephritis -monitor vital -follow ID consult recommendations -imaging shows no signs of pyelonephritis -leukocytosis improved -Patient has itching while on ciprofloxacin which was discontinued -Urine culture grew E coli sensitive to carbapenems, patient was started on meropenem without any allergic reaction to be given for 3 days # asymptomatic COVID infection 3 weeks ago -repeat COVID test -on room air #DM -FSG q.6 hours -on insulin regimen # chronic dizziness -meclizine 25 mg t.i.d. # VTE prophylaxis On Xarelto 20 mg orally # others -patient is on aromatase inhibitor at home to be reconciled DVT prophylaxis: On Xarelto GI prophylaxis: Ppi CODE status: Full Code CODE status: Full Code Discharge disposition: Home * Abiola Laboy, ADMINISTRATIVE JUDGE - 02/12/2022 8:44 AM CDT Physical Therapy 02/12/22 0844 PT Last Visit Session Type Treatment PT Received On 02/12/22 Safe Environment Arm Band Checked;Bed Alarm placed and activated;Chair Alarm placed and activated;Patient found in Supine;Overbed Table within Reach;Bed in Lowest Position with Wheels locked Subjective Agreeable to Therapy Family/Caregiver Present No Precautions Precautions Fall risk Pain Assessment Pain Assessment No/denies pain Shi-Mendez FACES Pain Rating 2 Pain Score 4 Patient's Stated Pain Goal No pain Pain Type Acute pain Chronic Pain Precipitating Factors Position;Activity Chronic Pain Alleviating Factors Medication;Distraction Pain Location Abdomen Pain Orientation Lower;Right Pain Radiating Towards right flank Pain Descriptors Cramping Pain Frequency Constant/continuous Clinical Progression Gradually improving Pain Interventions Medication (See MAR) Response to Interventions Partial pain relief Cognition Arousal/Alertness Alert Attention Span Appears intact Memory Appears intact Current communication Appears Intact Orientation Oriented X4 (person, place, time, situation) Following Commands Follows all commands and directions without difficulty Safety Judgment Good awareness of safety precautions Awareness of Errors Good awareness of errors made Insight Fully aware of deficits Compliance/Behavior Easy to engage Bed Mobility 1 Bed Mobility From 1 Supine Bed Mobility Type 1 To and from Bed Mobility to 1 Edge of bed Level of Assistance 1 Standby Assist Transfers Transfer Yes Transfer 1 Transfer From 1 Sit Transfer Type 1 To and from Transfer to 1 Stand Transfer Device 1 Wheeled walker Transfer Level of Assistance 1 Contact Guard Assist Ambulation 1 Distance (ft) 1 150ft Surface 1 Level tile Device 1 Wheeled walker Assistance 1 Contact Guard Assist Gait: Requires assist with 1 Maintaining balance Gait: Requires verbal cues to 1 Improve upright posture Quality of Gait 1 some c/o being sob after walking Ambulation Comments 1 pt ambulated in hallway with mask donned. Assessment Prognosis Good Problem List Gait deviations;Decreased strength;Decreased endurance;Decreased mobility;Obesity Barriers to Discharge Current Mobility Status Plan Plan Continue with current plan Recommendation/Plan PT Recommendation/Plan (S) Home with family Patient at high risk for Falls;Readmission Recommend [...] to address functional deficits PT Frequency 5-7x/wk Treatment/Interventions Endurance training;Gait training;Strengthening Multi-Disciplinary Problems (from Physical Therapy) Active Problems Problem: Mobility Start Date: 02/11/22 Goal Start Date Expected End Date End Date LTG - Patient will demonstrate functional mobility with the following level of assist: 02/11/22 02/25/22 -- Goal Details: Pt will transfer and amb w/walker, sba +1, 150 feet.progressing 150ft cga+1 Educated the patient to the role of physical therapy, plan of care, goals of therapy, rationale forprogressing mobility and. Patient was left in bed with all needs met and equipment intact. Safety measures include oriented to call light and placed within reach and personal items within reach. Mobility and ADL status postedat bedside and within medical record. * Neha Solo MD - 02/11/2022 3:35 PM CDT General Medicine Daily Progress DOA: 02/09/2022 Subjective Chief complaint of . Interval History: Improved dysuria On room air Past Medical History: Diagnosis Date Adiposity obesity Breast CA (CMS/HCC) (HCC) Cancer (CMS/HCC) (HCC) breast CHF (congestive heart failure) (CMS/HCC) (HCC) Depression Depression Diabetes (HCC) Disorder of thyroid Thyroid disease DVT (deep venous thrombosis) (CMS/HCC) (HCC) HX OTHER MEDICAL restless leg syndrome HX OTHER MEDICAL RLS Hypertension Hypertension Osteoarthritis osteoarthritis PE (pulmonary thromboembolism) (CMS/HCC) (HCC) Sleep apnea Objective Vitals: 24hr Min/Max: Temp Min: 36.2 ??C (97.2 ??F) Max: 36.9 ??C (98.5 ??F) Pulse Min: 73 Max: 85 BP Min: 124/69 Max: 159/88 Resp Min: 18 Max: 18 SpO2 Min: 93 % Max: 97 % Most Recent : Vitals: 02/11/22 1447 BP: Pulse: Resp: Temp: SpO2: 96% I/O last 2 completed shifts: In: 1660 [P.O.:1640; I.V.:20] Out: 800 [Urine:800] I/O this shift: In: 1320 [P.O.:1320] Out: - Physical Exam: Physical Exam Constitutional: Appearance: Normal appearance. She is obese. She is ill-appearing. She is not diaphoretic. HENT: Head: Normocephalic. Nose: Nose normal. No congestion. Mouth/Throat: Mouth: Mucous membranes are moist. Pharynx: Oropharynx is clear. Eyes: General: No scleral icterus. Conjunctiva/sclera: Conjunctivae normal. Pupils: Pupils are equal, round, and reactive to light. Cardiovascular: Rate and Rhythm: Normal rate and regular rhythm. Pulses: Normal pulses. Heart sounds: Normal heart sounds. Pulmonary: Effort: Pulmonary effort is normal. No respiratory distress. Abdominal: General: Abdomen is flat. Bowel sounds are normal. There is no distension. Tenderness: There is no right CVA tenderness or left CVA tenderness. Musculoskeletal: General: No swelling. Normal range of motion. Cervical back: Normal range of motion. No rigidity. Skin: General: Skin is warm. Capillary Refill: Capillary refill takes less than 2 seconds. Coloration: Skin is not jaundiced. Neurological: General: No focal deficit present. Mental Status: She is alert. Mental status is at baseline. Psychiatric: Mood and Affect: Mood normal. Lab/Radiology/Diagnostic Review: Laboratory review: Chemistry CMP: Lab Results Component Value Date ALBUMIN 3.7 02/11/2022 BUNSER 22 02/11/2022 CALCIUM 9.7 02/11/2022 CO2 27 02/11/2022 CHLORIDE 98 02/11/2022 CREATININE 0.70 02/11/2022 GLUCOSE 125 02/11/2022 GLUCOSE 140 02/11/2022 POTASSIUM 4.4 02/11/2022 SODIUM 136 02/11/2022 BILITOT 0.8 02/11/2022 PROT 7.9 02/11/2022 ALT 19 02/11/2022 AST 15 02/11/2022 ALKPHOS 102 02/11/2022 Current Facility-Administered Medications Medication Dose Route Frequency Provider Last Rate Last Admin acetaminophen (TYLENOL) tablet 650 mg 650 mg oral Q4H PRN Blaze Armenta NP 650 mg at 02/09/22 2233 albuterol HFA (PROVENTIL HFA,VENTOLIN HFA,PROAIR HFA) 90 mcg/actuation inhaler 2 puff 2 puff inhalation Q6H While awake (RT) Blaze Armenta NP 2 puff at 02/11/22 1447 amitriptyline (ELAVIL) tablet 25 mg 25 mg oral Nightly Blaze Armenta NP 25 mg at 02/10/22 2109 sodium chloride 0.9% flush 0.5-20 mL 0.5-20 mL intra-catheter Q8H [facility] Blaze Armenta NP 10 mL at 02/11/22 0630 And sodium chloride 0.9% flush 0.5-20 mL 0.5-20 mL intra-catheter PRN Blaze Armenta NP And Carrier Fluids for Secondary Infusion - 0.9% Sodium Chloride 30 mL intravenous PRN Blaze Armenta NP 30 mL at 02/10/22 0615 ciprofloxacin (CIPRO) 400 mg/200 mL in dextrose 5% (premix) 400 mg 400 mg intravenous BID - Blaze Alva NP 200 mL/hr at 02/11/22 0630 400 mg at 02/11/22 0630 dextrose gel in packet 15 g 15 g oral Q15 Min PRN Blaze Armenta NP Or dextrose (D10W) 10% bolus 250 mL 250 mL intravenous Q15 Min PRN Blaze Armenta NP glucagon injection 1 mg 1 mg intramuscular Q30 Min PRN Blaze Armenta NP insulin glargine (LANTUS, SEMGLEE) 100 unit/mL injection 33 Units 0.25 Units/kg subcutaneous Nightly Blaze Armenta NP 33 Units at 02/10/222108 insulin lispro (HumaLOG, ADMELOG) 100 unit/mL injection 0-10 Units 0-10 Units subcutaneous TID withmeals Blaze Armenta NP 2 Units at 02/11/22 0936 insulin lispro (HumaLOG, ADMELOG) 100 unit/mL injection 0-5 Units 0-5 Units subcutaneous Nightly Blaze Armenta NP 2 Units at 02/10/222108 insulin lispro (HumaLOG, ADMELOG) 100 unit/mL injection 11 Units 0.083 Units/kg subcutaneous TID with meals Blaze Armenta NP 11 Units at 02/11/22 1207 meclizine (ANTIVERT) tablet 25 mg 25 mg oral TID PRN Blaze Armenta NP morphine injection 2 mg 2 mg intravenous Q4H PRN Mariel Florentino MD 2 mg at 02/11/22 1207 ondansetron ODT (ZOFRAN-ODT) disintegrating tablet 4 mg 4 mg oral Q6H PRN Blaze Armenta NP Or ondansetron (ZOFRAN) injection 4 mg 4 mg intravenous Q6H PRN Blaze Armenta NP polyethylene glycol (MIRALAX) packet 17 g 17 g oral Daily PRN Blaze Armenta NP ramelteon (ROZEREM) tablet 8 mg 8 mg oral Nightly PRN Blaze Armenta NP rivaroxaban (XARELTO) tablet 20 mg 20 mg oral Daily with dinner Blaze Armenta NP 20 mg at rOPINIRole (REQUIP) tablet 5 mg 5 mg oral Nightly Blaze Armenta NP 5 mg at 02/10/222108 Assessment/Plan Principal Problem: Cystitis Active Problems: Essential hypertension History of pulmonary embolism Type 2 diabetes mellitus with neurologic complication, without long-term current use of insulin ([facility] ([facility]) Lab test positive for detection of COVID-19 virus No problem-specific Assessment & Plan notes found for this encounter. Plan # recurrent UTI to rule out pyelonephritis -monitor vital -continue ciprofloxacin as patient is allergic to multiple antibiotics -follow ID consult recommendations -imaging shows no signs of pyelonephritis -afebrile, leukocytosis 15.8 on ciprofloxacin IV day 3 -blood culture preliminary no growth -urine culture grew E coli awaiting susceptibility pattern # asymptomatic COVID infection 3 weeks ago -repeat COVID test -on room air #DM -FSG q.6 hours -on insulin regimen # chronic dizziness -meclizine 25 mg t.i.d. # VTE prophylaxis On Xarelto 20 mg orally # others -patient is on aromatase inhibitor at home to be reconciled DVT prophylaxis: On Xarelto GI prophylaxis: Ppi CODE status: Full Code Discharge disposition: Home * Mohini Duran, PT - 02/11/2022 3:21 PM CDT Physical Therapy 02/11/22 1521 General Chart Reviewed Yes Session Type Evaluation PT Received On 02/11/22 Safe Environment Arm Band Checked;Call Light within Reach;Patient found in Supine;Overbed Table within Reach;Bed in Lowest Position with Wheels locked Subjective Agreeable to Therapy Additional Pertinent History Dx: cystitis, Covid recovered PMHX: spinal stimulator Family/Caregiver Present No Physical Therapy-Patient Goal Disch home Precautions Precautions Fall risk Home Living Type of Home House Home Layout One level Home Access Stairs to enter without rails Entrance Stairs-Rails None Entrance Stairs-Number of Steps 2 Bathroom Shower/Tub Tub/shower unit Bathroom Toilet Standard Bathroom Equipment Grab bars in shower/tub;Shower chair Bathroom Accessibility Accessible Home Mobility Equipment Wheeled walker;Single point cane Prior Function Level of [place] Needs assistance with homemaking Lives With Spouse;Daughter Receives Help From Family (daughter is her paid caregiver) Driving Yes Mode of Transportation Driven by self;Driven by others Vocational/Occupation On disability Fall within the last 6 months No Pain Assessment Pain Assessment No/denies pain Cognition Orientation Oriented X4 (person, place, time, situation) Following Commands Follows all commands and directions without difficulty Compliance/Behavior Easy to engage Bed Mobility 1 Bed Mobility From 1 Supine Bed Mobility Type 1 To and from Bed Mobility to 1 Edge of bed Level of Assistance 1 Standby Assist Transfer 1 Transfer From 1 Sit Transfer to 1 Stand Technique 1 Sit to stand;Stand to sit Transfer Device 1 Wheeled walker Transfer Level of Assistance 1 Contact Guard Assist Ambulation 1 Distance (ft) 1 75 Surface 1 Level tile Device 1 Wheeled walker Assistance 1 Contact Guard Assist Gait: Requires assist with 1 Maintaining balance Gait: Requires verbal cues to 1 Improve upright posture Quality of Gait 1 slightly sob afterwards RLE Assessment RLE Assessment WFL LLE Assessment LLE Assessment WFL PT Treatment/Exercise Comments PT Treatment/Exercise Comments bilat le strength grossly 4/5 Assessment Prognosis Good Problem List Gait deviations;Decreased strength;Decreased endurance;Decreased mobility;Obesity Plan Plan Plan of care initiated Recommendation/Plan PT Recommendation/Plan (S) Home with family PT Frequency 5-7x/wk Treatment/Interventions Endurance training;Gait training;Strengthening PT - Next Appointment 02/25/22 PT Evaluation Complete Yes Multi-Disciplinary Problems (from Physical Therapy) Active Problems Problem: Mobility Start Date: 02/11/22 Goal Start Date Expected End Date End Date LTG - Patient will demonstrate functional mobility with the following level of assist: 02/11/22 02/25/22 -- Goal Details: Pt will transfer and amb w/walker, sba +1, 150 feet. * Riccardo Caba, OT - 02/11/2022 3:12 PM CDT Occupational Therapy 02/11/22 1512 General Chart Reviewed Yes Session Type Evaluation OT Received On 02/11/22 Safe Environment Arm Band Checked;Call Light within Reach;Chair Alarm placed and activated Subjective Agreeable to Therapy Subjective Comment Pt states she feels worse than she normally does but improving since admission. Pt tends to demonstrate good insight. Additional Pertinent History 66 yo admitted with recurrent UTI, COVID, HTN, PE, DM with neurologic complication, peripheral edema HX: morbid obesity Occupational Therapy-Patient Goal get strong enough to return home Current Functional Status OT Functional Mobility Pt able to complete longer, household distances with ww today. Min cueing for posture, ww technique. Pt with mild fatigue. CGA. OT Self Care Pt toileting on BSC with SBA. Pt able to don socks on EOB with adaptive technique, SBA. Pt fatigues with each activity requiring seated rest breaks, diaphragmatic breathing to improve fatigue. Pt able to complete grooming at sink with CGA. Pt requires assistance for higher level tasks requiring higher level exertion. Precautions Precautions Bed/Chair Alarm;Fall risk Home Living Type of Home House Home Layout One level Home Access Stairs to enter with rails;Stairs to enter without rails Entrance Stairs-Number of Steps 2 Bathroom Shower/Tub Tub/shower unit Bathroom Toilet Standard (discussed options as pt shorter) Bathroom Equipment Grab bars in shower/tub Bathroom Accessibility Accessible via wheelchair Home Mobility Equipment Single point cane;4-Wheeled walker (SC in home, ww for community) Prior Function Level of [place] Independent with ADLs;Independent functional transfers;Independent with ambulation;Needs assistance with homemaking Lives With Spouse;Daughter Receives Help From Family (daugther is pt paid caregiver. Pt has 24/7 assist as needed) Driving Yes Mode of Transportation Driven by self;Driven by others Vocational/Occupation On disability Fall within the last 6 months No Pain Assessment Pain Assessment No/denies pain Activity Tolerance Endurance Tolerates 10 - 20 min activity with multiple rests Activity Tolerance Comments fatigues, dyspnea with exertion. Pt able to self initiate rest breaks. Cognition Orientation Oriented X4 (person, place, time, situation) Following Commands Follows all commands and directions without difficulty Safety Judgment Good awareness of safety precautions Compliance/Behavior Easy to engage Bed Mobility 1 Bed Mobility From 1 Supine Bed Mobility Type 1 To and from Bed Mobility to 1 Edge of bed Level of Assistance 1 Standby Assist Transfer 1 Transfer From 1 Sit Transfer Type 1 To and from Transfer to 1 Stand Transfer Device 1 Wheeled walker Transfer Level of Assistance 1 Contact Guard Assist RUE Assessment RUE Assessment WFL LUE Assessment LUE Assessment WFL Assessment Prognosis Good Problem List Decreased endurance;Decreased functional mobility;Decreased ADL independence;DecreasedIADL independence;Pain Problem List Comments Pt with recent ongoing decline from recent readmissions, and recurrent UTI, COVID recovering impacting ADL independence. Pt limited currently limited by pain, decreased activitytolerance, generalized weakness. She will benefit from skilled OT to progress ADLs toward PLOF. Barriers to Discharge Current Mobility Status;Decreased caregiver support Plan Plan Plan of care initiated Recommendation/Plan OT Recommendation Home Health OT;Home Health PT;Home with family;Home with caregiver Patient at high risk for Developing secondary complications: poor health management;Injury due to decreased ability to care for self OT Recommendation/Plan Comments Pt will be homebound and benefit from HH OT/PT to progress pt toward PLOF> OT Frequency 3-5x/wk Treatment/Interventions ADL/IADL retraining;Balance Training;Bed mobility;Compensatory technique education;Endurance training;Equipment eval/education;Functional activity;Functional mobility training;Functional transfer training;Therapeutic exercise;Therapeutic activity;Strengthening OT - Next Appointment 02/25/22 OT Evaluation Complete Yes Multi-Disciplinary Problems (from Occupational Therapy) Active Problems Problem: OT [facility] Start Date: 02/12/22 Goal Start Date Expected End Date End Date [facility] 1 02/12/22 02/19/22 -- Goal Details: 1) VERBALIZE UNDERSTANDING EC/WS TECHS FOR ADL/IADL. Goal Start Date Expected End Date End Date [facility] 2 02/12/22 02/19/22 -- Goal Details: 2) DEMO INDEP WITH UE HEP TO IMPROVE ENDURANCE FOR ADL/MOBILITY. Goal Start Date Expected End Date End Date [facility] 3 02/12/22 02/19/22 -- Goal Details: 3) COMPLETE DYNAMIC BALANCE ACTIVITY/ITEM RETRIEVAL (4/4 items) IN ROOM WITH GOOD BALANCE/SAFETY. Goal Start Date Expected End Date End Date [facility] 4 02/12/22 02/19/22 -- Goal Details: 4) DEMO INDEP WITH LE ADL SBA WITH USE OF AE PRN. Goal Start Date Expected End Date End Date [facility] 5 02/12/22 02/19/22 -- Goal Details: COMPLETE ALL ASPECTS TOILETING WITH MODIFIED IND WITH SAFE WW TECHNIQUE, RPE <4/10. Educated the patient to the role of occupational therapy, plan of care, goals of therapy, rationalefor progressing mobility/ADLs, safe transfer technique with the ww, energy conservation. RN notified of session outcome. Patient was left in chair with all needs met and equipment intact. Safety measures include bed alarm activated, oriented to call light and placed within reach, and personal items within reach. Mobility and ADL status posted at bedside and within medical record. * Genaro Coy MD - 02/11/2022 2:45 PM CDT Progress Note Infectious Diseases Chief complaint: Recurrent urinary tract infection Subjective No abdominal pain. Improved generalized malaise. Objective Vitals: 02/11/22 0805 BP: Pulse: Resp: Temp: SpO2: 97% Constitutional: Alert, oriented x3. In no distress. [...] 650 mg 650 mg oral Q4H PRN Blaze Armenta NP 650 mg at 02/09/22 2233 albuterol HFA (PROVENTIL HFA,VENTOLIN HFA,PROAIR HFA) 90 mcg/actuation inhaler 2 puff 2 puff inhalation Q6H While awake (RT) Blaze Armenta NP 2 puff at 02/11/22 0805 amitriptyline (ELAVIL) tablet 25 mg 25 mg oral Nightly Blaze Armenta NP 25 mg at 02/10/22 210 sodium chloride 0.9% flush 0.5-20 mL 0.5-20 mL intra-catheter Q8H RODERICK Blaze Armenta NP 10 mL at 02/11/22 0630 And sodium chloride 0.9% flush 0.5-20 mL 0.5-20 mL intra-catheter PRN Blaze Armenta NP And Carrier Fluids for Secondary Infusion - 0.9% Sodium Chloride 30 mL intravenous PRN Blaze Armenta NP 30 mL at 02/10/22 0615 ciprofloxacin (CIPRO) 400 mg/200 mL in dextrose 5% (premix) 400 mg 400 mg intravenous BID - Blaze Alva NP 200 mL/hr at 02/11/22 0630 400 mg at 02/11/22 0630 dextrose gel in packet 15 g 15 g oral Q15 Min PRN Blaze Armenta NP Or dextrose (D10W) 10% bolus 250 mL 250 mL intravenous Q15 Min PRN Blaze Armenta NP glucagon injection 1 mg 1 mg intramuscular Q30 Min PRN Blaze Armenta NP insulin glargine (LANTUS, SEMGLEE) 100 unit/mL injection 33 Units 0.25 Units/kg subcutaneous Nightly Blaze Armenta NP 33 Units at 02/10/229 insulin lispro (HumaLOG, ADMELOG) 100 unit/mL injection 0-10 Units 0-10 Units subcutaneous TID withmeals Blaze Armenta NP 2 Units at 02/11/22 0936 insulin lispro (HumaLOG, ADMELOG) 100 unit/mL injection 0-5 Units 0-5 Units subcutaneous Nightly Blaze Armenta NP 2 Units at 02/10/222108 insulin lispro (HumaLOG, ADMELOG) 100 unit/mL injection 11 Units 0.083 Units/kg subcutaneous TID with meals Blaze Armenta NP 11 Units at 02/11/22 1207 meclizine (ANTIVERT) tablet 25 mg 25 mg oral TID PRN Blaze Armenta NP morphine injection 2 mg 2 mg intravenous Q4H PRN Mariel Florentino MD 2 mg at 02/11/22 1207 ondansetron ODT (ZOFRAN-ODT) disintegrating tablet 4 mg 4 mg oral Q6H PRN Blaze Armenta NP Or ondansetron (ZOFRAN) injection 4 mg 4 mg intravenous Q6H PRN Blaze Armenta NP polyethylene glycol (MIRALAX) packet 17 g 17 g oral Daily PRN Blaze Armenta NP ramelteon (ROZEREM) tablet 8 mg 8 mg oral Nightly PRN Blaze Armenta NP rivaroxaban (XARELTO) tablet 20 mg 20 mg oral Daily with dinner Blaze Armenta NP 20 mg at rOPINIRole (REQUIP) tablet 5 mg 5 mg oral Nightly Blaze Armenta NP 5 mg at 02/10/222108 Allergies Allergen Reactions Ceftriaxone Anaphylaxis R Ceftriaxone [...] Other Family history of restless leg syndrome; Lab Results Component Value Date HGBA1C 7.7 (H) 02/11/2022 TSH 2.20 09/11/2021 TIBC 335 11/26/2015 INR 1.5 (H) 02/09/2022 DDIMER <150 (L) 08/01/2017 FERRITIN 121 11/26/2015 BNP 18 03/17/2018 CHOLHDL 4 01/24/2018 HCT 40.5 02/11/2022 MCH 28.6 02/11/2022 MCV 91.2 02/11/2022 MPV 9.9 02/11/2022 HDL 36 (L) 01/24/2018 RBC 4.44 02/11/2022 RDW 14.5 05/16/2017 WBC 15.8 (H) 02/11/2022 COVID-19 PCR February 11, 2022 negative.. Blood cultures from 02/09/2022 no growth day 3. Urine cultures 02/09/2022 greater than 100,000 colonies of E coli Assessment/Plan 1. Leukocytosis with abdominal pain and pyuria. WBC count is at 15,000. Urine culture showed 100,000 colonies of E coli susceptibility pending. Patient is currently on ciprofloxacin day 3. Awaiting susceptibility pattern and adjust antibiotics accordingly. If this organism is resistant to ciprofloxacin patient has tolerated carbapenems in the past and can be transitioned to carbapenem. Other alternative therapy include Azactam if organism is sensitive. Continue current care for now. Repeat CBC with differential in a.m.. 2. Type 2 diabetes with blood sugars ranging 3. Multiple antibiotics allergy:Ceftriaxone causes anaphylaxis Zosyn causes rash, levofloxacin unknown but tolerates ciprofloxacin. Previously has tolerated carbapenems. Will monitor closely on ciprofloxacin. 4. Positive COVID-19 test on February 09, 2022. Subsequent repeat COVID-19 test PCR was negative. CTscan was unremarkable Genaro Coy MD [facility] [place] Disease [place] Office [phone] * Neha Solo MD - 02/10/2022 5:22 PM CDT General Medicine Daily Progress DOA: 02/09/2022 Subjective Chief complaint of . Interval History: Recurrent UTI with microhematuria on ciprofloxacin No signs of pyelonephritis on imaging, right CVA tenderness on exam to be monitored On aromatase inhibitor as home medication to be reconciled tomorrow Asymptomatic COVID infection, on room air Past Medical History: Diagnosis Date Adiposity obesity Breast CA (CMS/HCC) (HCC) Cancer (CMS/HCC) (HCC) breast CHF (congestive heart failure) (CMS/HCC) (HCC) Depression Depression Diabetes (HCC) Disorder of thyroid Thyroid disease DVT (deep venous thrombosis) (CMS/HCC) (HCC) HX OTHER MEDICAL restless leg syndrome HX OTHER MEDICAL RLS Hypertension Hypertension Osteoarthritis osteoarthritis PE (pulmonary thromboembolism) (CMS/HCC) ([facility]) Sleep apnea Objective Vitals: 24hr Min/Max: Temp Min: 36.7 ??C (98 ??F) Max: 36.8 ??C (98.3 ??F) Pulse Min: 76 Max: 81 BP Min: 125/78 Max: 145/86 Resp Min: 18 Max: 26 SpO2 Min: 94 % Max: 97 % Most Recent : Vitals: 02/10/22 1448 BP: Pulse: Resp: Temp: SpO2: 95% I/O last 2 completed shifts: In: 10 [I.V.:10] Out: - I/O this shift: In: 240 [P.O.:240] Out: - Physical Exam: Physical Exam Constitutional: Appearance: Normal appearance. She is obese. She is ill-appearing. She is not diaphoretic. HENT: Head: Normocephalic. Nose: Nose normal. No congestion. Mouth/Throat: Mouth: Mucous membranes are moist. Pharynx: Oropharynx is clear. Eyes: General: No scleral icterus. Conjunctiva/sclera: Conjunctivae normal. Pupils: Pupils are equal, round, and reactive to light. Cardiovascular: Rate and Rhythm: Normal rate and regular rhythm. Pulses: Normal pulses. Pulmonary: Effort: Pulmonary effort is normal. No respiratory distress. Breath sounds: Normal breath sounds. No rales. Abdominal: General: Abdomen is flat. Bowel sounds are normal. There is no distension. Tenderness: There is right CVA tenderness. There is no left CVA tenderness. Musculoskeletal: General: No swelling. Normal range of motion. Cervical back: Normal range of motion. Right lower leg: No edema. Skin: General: Skin is warm. Capillary Refill: Capillary refill takes less than 2 seconds. Coloration: Skin is not jaundiced. Neurological: General: No focal deficit present. Mental Status: She is alert. Mental status is at baseline. Psychiatric: Mood and Affect: Mood normal. Lab/Radiology/Diagnostic Review: Laboratory review: Chemistry CMP: Lab Results Component Value Date ALBUMIN 4.1 02/09/2022 BUNSER 21 02/10/2022 CALCIUM 10.0 02/10/2022 CO2 28 02/10/2022 CHLORIDE 101 02/10/2022 CREATININE 0.70 02/10/2022 GLUCOSE 167 02/10/2022 GLUCOSE 139 02/10/2022 POTASSIUM 4.4 02/10/2022 SODIUM 138 02/10/2022 BILITOT 0.8 02/09/2022 PROT 8.6 (H) 02/09/2022 ALT 22 02/09/2022 AST 18 02/09/2022 ALKPHOS 108 02/09/2022 Current Facility-Administered Medications Medication Dose Route Frequency Provider Last Rate Last Admin acetaminophen (TYLENOL) tablet 650 mg 650 mg oral Q4H PRN Blaze Armenta NP 650 mg at 02/09/22 2233 albuterol HFA (PROVENTIL HFA,VENTOLIN HFA,PROAIR HFA) 90 mcg/actuation inhaler 2 puff 2 puff inhalation Q6H While awake (RT) Blaze Armenta NP 2 puff at 02/10/22 1448 amitriptyline (ELAVIL) tablet 25 mg 25 mg oral Nightly Blaze Armenta NP 25 mg at 02/10/22 0021 sodium chloride 0.9% flush 0.5-20 mL 0.5-20 mL intra-catheter Q8H RODERICK Blaze Armenta NP 10 mL at 02/10/22 0624 And sodium chloride 0.9% flush 0.5-20 mL 0.5-20 mL intra-catheter PRN Blaze Armenta NP And Carrier Fluids for Secondary Infusion - 0.9% Sodium Chloride 30 mL intravenous PRN Blaze Armenta NP 30 mL at 02/10/22 0615 ciprofloxacin (CIPRO) 400 mg/200 mL in dextrose 5% (premix) 400 mg 400 mg intravenous BID - Blaze Alva NP 200 mL/hr at 02/10/22 0615 400 mg at 02/10/22 0615 dextrose gel in packet 15 g 15 g oral Q15 Min PRN Blaze Armenta NP Or dextrose (D10W) 10% bolus 250 mL 250 mL intravenous Q15 Min PRN Blaze Armenta NP glucagon injection 1 mg 1 mg intramuscular Q30 Min PRN Blaze Armenta NP insulin glargine (LANTUS, SEMGLEE) 100 unit/mL injection 33 Units 0.25 Units/kg subcutaneous Nightly Blaze Armenta NP 33 Units at 02/10/22 0021 insulin lispro (HumaLOG, ADMELOG) 100 unit/mL injection 0-10 Units 0-10 Units subcutaneous TID withmeals Blaze Armenta NP insulin lispro (HumaLOG, ADMELOG) 100 unit/mL injection 0-5 Units 0-5 Units subcutaneous Nightly Blaze Armenta NP 1 Units at 02/10/22 0021 insulin lispro (HumaLOG, ADMELOG) 100 unit/mL injection 11 Units 0.083 Units/kg subcutaneous TID with meals Blaze Armenta NP 11 Units at 02/10/22 1239 meclizine (ANTIVERT) tablet 25 mg 25 mg oral TID PRN Blaze Armenta NP morphine injection 2 mg 2 mg intravenous Q4H PRN Mariel Florentino MD 2 mg at 02/10/22 1120 ondansetron ODT (ZOFRAN-ODT) disintegrating tablet 4 mg 4 mg oral Q6H PRN Blaze Armenta NP Or ondansetron (ZOFRAN) injection 4 mg 4 mg intravenous Q6H PRN Blaze Armenta NP polyethylene glycol (MIRALAX) packet 17 g 17 g oral Daily PRN Blaze Armenta NP ramelteon (ROZEREM) tablet 8 mg 8 mg oral Nightly PRN Blaze Armenta NP rivaroxaban (XARELTO) tablet 20 mg 20 mg oral Daily with dinner Blaze Armenta NP 20 mg at rOPINIRole (REQUIP) tablet 5 mg 5 mg oral Nightly Blaze Armenta NP Assessment/Plan Principal Problem: Cystitis Active Problems: Essential hypertension History of pulmonary embolism Type 2 diabetes mellitus with neurologic complication, without long-term current use of insulin ([facility]) ([facility]) Lab test positive for detection of COVID-19 virus Plan # recurrent UTI to rule out pyelonephritis -monitor vital -screen for sepsis -continue ciprofloxacin as patient is allergic to multiple antibiotics -follow ID consult recommendations -imaging shows no signs of pyelonephritis -afebrile, leukocytosis 14.2, on ciprofloxacin IV day 2 -blood culture and urine culture preliminary no growth # asymptomatic COVID infection 3 weeks ago -repeat COVID test -on room air #DM -FSG q.6 hours -on insulin regimen # chronic dizziness -meclizine 25 mg t.i.d. # VTE prophylaxis On Xarelto 20 mg orally # others -patient is on aromatase inhibitor at home to be reconciled DVT prophylaxis: On Xarelto GI prophylaxis: Ppi Rehab consult: Ongoing CODE status: Full Code Discharge disposition: Home * Ramon Guthrie - 02/10/2022 4:35 PM CDT 02/10/22 1600 Time Spent Start Time 1549 Patient Spiritual Assessment Spirituality Assessed Yes Confucianist Affiliation [employer] Clinical Encounter Type Visited With Patient Response Type Routine visit Routine Visit Introduction Reason for visit Support Patient stated that she wasn't feeling good enough to have a routine visit. Visit ended with encouragement and blessing. * Bonnie Granados RN - 02/10/2022 3:00 PM CDT CM Initial Assessment Interview Note Information Obtained From: Patient (02/10/22 1277) Admission Source: ED Impression: Pt presented with urinary frequency, nausea, vomiting, abdominal pain, shortness of breath, ble edema. WBC 15.8 now 14.2, UA positive, urine culture pending. BC pending. Covid recovered. Chest CT shows no acute abnormality. Plan Includes: ID consulted. IV cipro. PT/OT. Primary Care Provider: Justen Gale MD Prior to Admission: Primary Caregiver: Self Who does the patient or legal guardian want to receive education instruction and discharge plans for after care assistance?: Name Caregiver Name: Yunior Marques Relationship to patient: Daughter Support System: Spouse/Significant Other Durable Medical Equipment: CPAP/Bi-PAP Living Arrangements: Children Type of Residence: Private residence Steps in home? : Yes, Outside of home Number of steps outside:: 2 steps (02/09/22 0026) Patient expects to be Discharged to: Private residence, (02/10/22 1859) Patient's Identified Problem/Goal Problem: Ensure acute medical [...] Collaboration with patient, MD, direct care nurse, Cryptography Teacher, and other members of the health care team to assure needed interventions completed. 2. Return patient to optimal level of self-care post discharge. 3. [facility] Lab[employer] will follow for Discharge Planning - interventions as needed 4. Anticipated level of care at discharge 5. Planned Discharge Disposition Bonnie Granados RN * Mohini Duran PT - 02/10/2022 1:05 PM CDT Physical Therapy 02/10/22 1305 General Chart Reviewed Yes PT Missed Visit Reason Patient declined (not feeling good enough) * Heaven Lowery OT - 02/10/2022 12:48 PM CDT Occupational Therapy Patient Name: Karly Marques Date of : 1955 Date of Service: 02/10/2022 02/10/22 1248 General Chart Reviewed Yes Session Type Other (comment) (OT orders. Bedside visit) Safe Environment Arm Band Checked;Call Light within Reach;Notified RN;Patient found in Supine;Overbed Table within Reach;Bed in Lowest Position with Wheels locked Subjective Comment ( I just don't feel well. ) OT Missed Visit Reason Patient declined Additional Pertinent History cystitis - recurrent UTIs since September (h/o spinal cord stimulator since August 2021 - developed an abscess and treated for osteomyelitis - symptoms returned. Plans to f/u with for stimulator battery replacement, COVID 3-4 weeks ago, depression, DM, DVT/PE, breast CA, obesity) Family/Caregiver Present No Current Functional Status OT Functional Mobility Walker placed in room per pt request - pt reports she has been transferring to/from bedside commode with nursing staff. OT Cognition intact OT Communication intact Home Living Type of Home House Home Layout One level Home Access Stairs to enter without rails Entrance Stairs-Number of Steps 2 Bathroom Shower/Tub Tub/shower unit Bathroom Toilet Standard Bathroom Equipment Grab bars in shower/tub;Shower chair Bathroom Accessibility Accessible Home Mobility Equipment Wheeled walker;Single point cane (typically uses cane) Prior Function Level of [place] Needs assistance with ADLs;Needs assistance with homemaking;Independent functional transfers;Independent with ambulation Lives With Daughter Receives Help From Family (Daughter is paid caregiver for IADLs and some ADLs.) Plan Plan (OT will complete eval as able - hopefully tomorrow if patient is feeling better.) documented in this encounter H&P Notes * Blaze Armenta NP - 02/09/2022 9:03 PM CDT Images from the original note were not included. History and Physical Date of Service: 02/09/2022 Primary Care Physician: Justen Gale MD [phone] CHIEF COMPLAINT: Patient is a 66 y.o. female with a PMHx significant for obesity and diabetes. Presents to the ED with a chief complaint of UTI like symptoms. HPI: She states that from last approximately 3-4 days she is having urinary urgency, frequency, dysuria,lower abdominal pain as well as right flank pain. In addition she states that in last day or so shehas been having nausea, vomiting and overall not feeling well. She has been dealing with recurrent UTI from last several months. She denies any fever or chill. Denies any chest pain, shortness of breath, dizziness or weakness. Denies any other complaint. Past Medical History: Diagnosis Date Adiposity obesity Breast CA (CMS/HCC) (HCC) Cancer (CMS/HCC) (HCC) breast CHF (congestive heart failure) (CMS/HCC) ([facility]) Depression Depression Diabetes ([facility]) Disorder of thyroid Thyroid disease DVT (deep venous thrombosis) ([facility]) ([facility]) HX OTHER MEDICAL restless leg syndrome HX OTHER MEDICAL RLS Hypertension Hypertension Osteoarthritis osteoarthritis PE (pulmonary thromboembolism) ([facility]) ([facility]) Sleep apnea Past Surgical History: [...] Systems: Review of Systems Constitutional: Positive for fatigue. Negative for chills and fever. HENT: Negative for ear pain and sore throat. Eyes: Negative for pain and visual disturbance. Respiratory: Negative for cough and shortness of breath. Cardiovascular: Negative for chest pain and palpitations. Gastrointestinal: Positive for abdominal pain, nausea and vomiting. Genitourinary: Positive for dysuria, flank pain, frequency and urgency. Negative for hematuria. Musculoskeletal: Negative for arthralgias and back pain. Skin: Negative for color change and rash. Neurological: Positive for weakness. Negative for seizures and syncope. All other systems reviewed and are negative. OBJECTIVE: Vitals: Arrival Vitals Temp 02/09/22 1303 36.7 ??C (98.1 ??F) Pulse 02/09/22 1303 97 Resp 02/09/22 1303 18 BP 02/09/22 1303 (!) 178/93 SpO2 02/09/22 1303 99 % Temp src 02/09/22 1303 Oral Heart Rate Source 02/09/22 1645 Monitor Patient Position 02/09/22 1556 Sitting BP Location 02/09/22 1700 Right arm FiO2 (%) -- Most Recent : Vitals: 02/09/22 1645 02/09/22 1700 02/09/22 1915 02/09/222005 BP: (!) 176/111 (!) 165/105 140/80 141/76 BP Location: Right arm Right arm Right arm Patient Position: Lying Lying Pulse: 85 82 79 80 Resp: Temp: TempSrc: SpO2: 100% 98% 97% 97% No intake/output data recorded. No intake/output data recorded. Physical Exam: Physical Exam Vitals and nursing note reviewed. Constitutional: General: She is awake. Appearance: Normal appearance. She is obese. HENT: [...] phonation normal. Cardiovascular: Rate and Rhythm: Normal rate. Pulses: Normal pulses. Radial pulses are 2+ on the right side and 2+ on the left side. Heart sounds: Normal heart sounds. Pulmonary: Effort: Pulmonary effort is normal. Breath sounds: Normal breath sounds and air entry. No decreased breath sounds, wheezing, rhonchi orrales. Abdominal: Tenderness: There is abdominal tenderness in the suprapubic area. There is right CVA tenderness. Musculoskeletal: Cervical back: Full passive range of [...] is 6. Psychiatric: Attention and Perception: Attention and perception normal. Mood and Affect: Mood and affect normal. Speech: Speech normal. Behavior: Behavior normal. Behavior is cooperative. Thought Content: Thought content normal. Lab/Radiology/Diagnostic Review: Recent Results (from the past 24 hour(s)) CBC with auto differential Collection Time: 02/09/22 1:12 PM Result Value Ref Range WBC 15.8 (H) 3.8 - 9.9 K/cumm Hgb 13.2 11.9 - 15.5 g/dL Hct 41.9 35.6 - 45.5 % Plt 309 150 - 400 K/cumm MPV 9.6 9.1 - 12.3 fL RBC 4.59 3.90 - 5.20 M/cumm MCV 91.3 81.3 - 96.4 fL MCH 28.8 27.1 - 33.3 pg MCHC 31.5 (L) 32.3 - 35.7 g/dL RDW CV 14.4 11.1 - 14.9 % RDW SD 48.2 (H) 35.7 - 48.1 fL NRBC abs 0.00 0.00 - 0.01 K/cumm Comprehensive metabolic panel Collection Time: 02/09/22 1:12 PM Result Value Ref Range Sodium 141 135 - 145 mmol/L Potassium, pl 4.2 3.3 - 4.9 mmol/L Chloride 102 97 - 110 mmol/L CO2 26 22 - 32 mmol/L Anion gap 13 2 - 15 mmol/L BUN 24 8 - 25 mg/dL Creatinine 1.00 0.60 - 1.10 mg/dL Glucose 217 (H) 70 - 199 mg/dL Calcium 10.2 8.5 - 10.3 mg/dL Bilirubin, total 0.8 0.1 - 1.2 mg/dL Protein, pl 8.6 (H) 6.5 - 8.5 g/dL Albumin 4.1 3.5 - 5.0 g/dL Alk phos 108 40 - 130 Units/L ALT 22 7 - 45 Units/L AST 18 10 - 45 Units/L Sepsis Lactate w/ Reflex Collection Time: 02/09/22 1:12 PM Result Value Ref Range Sepsis Lactate 1.8 0.7 - 2.0 mmol/L Pro B-type natriuretic peptide Collection Time: 02/09/22 1:12 PM Result Value Ref Range NT-proBNP 89 <=300 pg/mL Troponin T high-sensitivity series (baseline, 2hr, 4hr, 6hr) Collection Time: 02/09/22 1:12 PM Result Value Ref Range Trop T hs 19 (H) <=14 ng/L Differential, auto Collection Time: 02/09/22 1:12 PM Result Value Ref Range Neutrophil abs 12.1 (H) 1.7 - 6.5 K/cumm Imm gran abs 0.1 0.0 - 0.1 K/cumm Lymphocyte abs 2.5 0.8 - 3.3 K/cumm Monocyte abs 1.0 (H) 0.2 - 0.8 K/cumm Eosinophil abs 0.1 0.0 - 0.5 K/cumm Basophil abs 0.1 0.0 - 0.1 K/cumm Neutrophil pct 76.6 % Imm gran pct 0.5 % Lymphocyte pct 15.7 % Monocyte pct 6.3 % Eosinophil pct 0.6 % Basophil pct 0.3 % eGFR Collection Time: 02/09/22 1:12 PM Result Value Ref Range eGFR 63 mL/min/1.73 m2 ECG 12 lead Collection Time: 02/09/22 1:19 PM Result Value Ref Range Ventricular Rate EKG/Min 92 BPM Atrial Rate 92 BPM MO-Interval (MSEC) 134 ms QRS-Interval (MSEC) 76 ms QT-Interval (MSEC) 348 ms QTc 430 ms P Mallie 8 degrees R Mallie 0 degrees T Mallie 16 degrees Diagnosis Normal sinus rhythm Nonspecific T wave abnormality Abnormal ECG When compared with ECG of 28-JAN-2022 16:59, Premature atrial complexes are no longer Present Urinalysis reflex to microscopic and culture Urine Collection Time: 02/09/22 1:28 PM Specimen: Urine Result Value Ref Range Color, ur Yellow Yellow Clarity, ur Cloudy (A) Clear Specific gravity, ur 1.015 1.003 - 1.030 pH, urine 6.0 Protein, ur ql Negative Negative Glucose, ur ql Negative Negative Ketones, ur Negative Negative Bilirubin, ur Negative Negative Blood, ur 1+ (A) Negative Urobilinogen, ur 0.2 <2.0 mg/dL Nitrite, ur Positive (A) Negative Leukocyte esterase, ur 2+ (A) Negative UA reflex comment Reflex to microscopic UA will be performed. Urinalysis, microscopic only Collection Time: 02/09/22 1:28 PM Result Value Ref Range WBC, ur >50 (A) 0 - 5 /HPF RBC, ur 6-10 (A) 0 - 2 /HPF Culture Reflex Comment Reflex to urine culture will be performed. Troponin T high-sensitivity 2-hour Collection Time: 02/09/22 3:37 PM Result Value Ref Range Trop T hs 18 (H) <=14 ng/L Trop T hs delta -1 ng/L Trop T hs interp Insignificant Influenza A/B, RSV, and COVID-19 PCR Nasopharyngeal Collection Time: 02/09/22 4:46 PM Specimen: Nasopharyngeal Result Value Ref Range COVID-19 RNA Positive (A) Negative Influenza A RNA Negative Negative Influenza B RNA Negative Negative RSV RNA Negative Negative Protime-INR Collection Time: 02/09/22 4:55 PM Result Value Ref Range PT 18.1 (H) 12.0 - 14.6 sec INR 1.5 (H) 0.9 - 1.2 aPTT Collection Time: 02/09/22 4:55 PM Result Value Ref Range aPTT 32 22 - [address] Head WO Contrast Result Date: 01/28/2022 Narrative: EXAM DESCRIPTION: CT HEAD WO CONTRAST REASON FOR STUDY: Dizziness, persistent/recurrent,cardiac or vascular cause suspected I'm having positional dizzy spells. I saw my primary and they said it was probably my inner ear. It went away but it's bad and worse this time. I'm nauseous. WhenI move it feels like the room is going up and down. I feel a little sob too. I did have covid a couple weeks ago. Wheelchair to triage. S/s onset last night. Left limb alert. TECHNIQUE: Axial imagesacquired through the brain without intravenous contrast. Images [...] signed by Patrick Navarro M.D. KT: DEANA T: 25:39 PM Report ID: [id number] Reading Location: [id number] XR Chest 1 Vw Portable Result Date: 01/28/2022 Narrative: EXAM DESCRIPTION: XR CHEST 1 VIEW [...] consolidation or pneumothorax. No pleural effusion. HEART/MEDIASTINUM: Heart size is normal. Normal mediastinal and hilar contours. HARDWARE/LINES/TUBES: None. BONES: No acute findings. OTHER: No other significant finding. IMPRESSION: No acute cardiopulmonary disease. THIS IS AN ELECTRONICALLY VERIFIED FINAL REPORT 01/28/2022 5:11 PM - Electronically signed by Teto English M.D. CH: CATALINA Report ID: [id number] Reading Location: [id number] CT Chest Abdomen Pelvis W Contrast Result Date: 02/09/2022 Narrative: EXAM DESCRIPTION: CT CHEST ABDOMEN PELVIS W CONTRAST REASON FOR STUDY: Sepsis, UTI, Dyspnea on exertion pmhx obesity, breast ca, CHF, depression, DM, DVt/PE, presenting to the ED c/o UTI sx x 7 days. She admits to urinary frequency, nausea, vomiting, fatigue, suprapubic abdominal pain, chills, R flank pain. She had an episode of incontinence here at the ER. She also notes worsening dyspnea on exertion and SOB. Pt notes recurrent UTI since September. In October her spinal cord stimulator developed an abscess and she was treated for osteomyelitis. She states she just finished a round of Bactrim this month but her symptoms returned. Pt is on Xarelto for a known PE/DVT TECHNIQUE: CT scan of the chest, abdomen, and pelvis performed with intravenous and without oral contrast using helical scanning technique with dynamic intravenous contrast injection. Reconstructed coronal and sagittal MPRimages reviewed. All images stored on PACS. Automated exposure control was used as a dose optimization technique for this examination. CONTRAST TYPE/DOSE: 100mL of IOVERSOL 350 MG IODINE/ML INTRAVENOUS SYRINGE COMPARISON: CT chest September 11, 2021, CT abdomen pelvis December 22, 2021 FINDINGS: CHEST LUNGS: Respiratory motion. Minimal dependent atelectasis in the lung bases. A few scattered benign calcified granulomas. In the posteromedial aspect of the left lower lobe are several noncalcified pulmonary nodules, the largest measures 0.5 cm (series 3, image 66/91), stable from September 11, 2021 and new from November 11, 2017. Scattered peripheral tiny micro nodules measuring 0.2 cm. No pulmonary mass. Mild s ecretions in the trachea. PLEURA: No pleural effusion or pneumothorax. MEDIASTINUM/SHALA: Heterogeneous enhancement of the thyroid with coarse calcifications. In the anterior mediastinum is a stable soft tissue nodule measuring 1.1 cm. HEART: Cardiomegaly. No pericardial effusion. Coronary artery calcifications. VASCULATURE CHEST: No thoracic aortic aneurysm or dissection. AXILLA: No adenopathy. ABDOMEN/PELVIS LIVER: Liver is decreased in density compatible with fatty infiltration. Liver is normal in size. GALLBLADDER: Surgically absent. BILE DUCTS: No intrahepatic or extrahepatic ductal dilata tion. SPLEEN: Normal in size and density. PANCREAS: Normal. ADRENALS: Normal. KIDNEYS/URINARY TRACT: No renal calculus or hydronephrosis. Simple appearing right renal cortical cysts requiring no follow-up. Urinary bladder is unremarkable. GI: No dilated loops of large or small bowel. Colonic diverti culosis without diverticulitis. The appendix is normal. PERITONEUM: No ascites or free air. RETROPERITONEUM: No lymphadenopathy. REPRODUCTIVE: Not well evaluated by CT. VASCULATURE ABDOMEN: No abdominal aortic aneurysm. MUSCULOSKELETAL CHEST ABDOMEN PELVIS: Postsurgical changes about the anterior ab dominal wall with hernia repair. Degenerative changes of the bilateral sacroiliac joints with periarticular sclerosis and vacuum phenomenon. Narrowing and sclerosis of the pubic symphysis. Disc spacenarrowing with spondylosis and endplate degenerative change in the midthoracic spine. Spinal stimulator leads in the midthoracic spine. Facet arthropathy in the lumbar spine. OTHER: No significant abnormality. IMPRESSION: 1. No acute abnormality in the chest, abdomen, or pelvis. 2. Noncalcified pulmonary nodules. According to Fleischner society guidelines if patient is low risk no further follow-up. If patient is high risk optional follow-up CT chest without contrast in 1 year. THIS IS AN ELECTRONICALLY VERIFIED FINAL REPORT 02/09/2022 6:21 PM - Electronically signed by Dulce Danielson D.O. AC: JUDY Report ID: [id number] Reading Location: [place] [id number] ASSESSMENT/PLAN: Principal Problem: Cystitis Active Problems: Essential hypertension History of pulmonary embolism Type 2 diabetes mellitus with neurologic complication, without long-term current use of insulin ([facility] ([facility]) Lab test positive for detection of COVID-19 virus Resolved Problems: No resolved hospital problems. Cystitis: Significantly elevated leukocytes, does have right CVA tenderness on palpitation, will continue ciprofloxacin. -history of recurrent UTI, infectious disease was consulted, will continue the recommendation. Active Problems: Lab test positive for detection of COVID-19 virus: Had COVID symptoms 3-4 weeks ago and was tested positive then, no active COVID- 19 like symptom at this time. Most likely residual COVID from last 3-4 weeks. Essential hypertension -stable, will continue home medicine. History of pulmonary embolism: -will continue Xarelto. -Type 2 diabetes mellitus with neurologic complication, without long-term current use of insulin ([facility] ([facility]): Will hold home medicine and started her on insulin regimen. Full Code ESTIMATED LENGTH OF STAY: 2 Approximate time spent for chart review, assessment, interview, and note - 50 min Medical Decision Making Complexity: 2 DVT prophylaxis: On xarelto PT/OT: Ordered Case discussed with Case Management and Cryptography Teacher Voice recognition software [employer] may have been used to dictate and transcribe this document. Gear Repairer variances may occur. Despite proofreading, typographical errors may occur. Blaze Armenta NP 02/09/2022 9:14 PM Cosigned by Mariel Florentino MD at 02/10/2022 12:00 AM CDT Associated attestation - Mariel Florentino MD - 02/10/2022 12:00 AM CDT Images from the original note were not included. I have seen and examined the patient on 02/09/22 in conjunction with the non- physician provider. I have interviewed and examined the patient independent of the nurse practitioner. I agree with thenote by Blaze Armenta NP. The patient's case was reviewed in detail, and the assessment and plan was devised in collaboration with myself. The patient is a Karly Marques a 66 y.o. female presenting with a chief complaint of Chief Complaint Patient presents with Urinary Problem Peripheral Edema 66-year-old morbidly obese woman with type 2 DM, history of DVT/PE on Xarelto, overactive bladder, recurrent UTI and recent COVID-19 infection. She presented with increased urinary frequency, lower abdominal pain and right lower back pain. Symptoms have been present for the past 4 days. Lower abdominal pain is crampy in nature and worse during micturition. Symptoms are associated with chills, nausea, 2 episodes of nonbloody/nonbilious vomiting this morning, and exertional dyspnea. No associated hematuria, fever, cough, chest pain/tightness, orthopnea and PND. Of note, she endorsed recurrent UTIs especially since October when she had to be transferred to [facility] for UTI with sepsis, treated with ertapenem for 5 days in the hospital, and subsequently completing 6-8 weeks at home. Shortly thereafter, symptoms returned; she was started on Bactrim for E coli UTI times 10 days. Her symptoms resolved. Now she has developed symptoms again, worse than before. In the ER, she was hypertensive. Laboratory evaluation showed pyuria and leukocytosis. She tested positive for COVID-19 (persistent times the past 3-[address] of the chest, abdomen and pelvis showed no acute disease process. She was given ciprofloxacin and IV morphine for pain. Vitals: 02/09/22200502/09/22 2100 02/09/22 2217 BP: 141/76 133/74 145/86 Pulse: 80 77 81 Resp: 26 20 20 Temp: 36.7 ??C (98.1 ??F) SpO2: 97% 97% 97% Gen: In no acute distress; morbidly obese Head: Normocephalic, atraumatic Neck: short, supple ENT: Moist oral mucosa Heart/CV: RRR, normal S1/S2, no S3/S4, no murmur/gallop, nonpitting swelling of the left foot Lungs/Resp: Non-labored breathing, CTAB Abdomen/GI: Non-distended, soft and nontender; normal bowel sounds : No CVA tenderness MSK: Tenderness of the superior aspect of the right gluteus; no extremity deformity; normal ROM of all extremities Neuro: Alert; oriented x 3 Skin: Intact Psych: Normal affect I have independently reviewed the results of tests and imaging performed including: Hematology Lab History Some values may be hidden. Unless noted otherwise, only the newest values recorded on each date aredisplayed. Labs - Hematology Latest Ref Range 12/26/21 01/10/22 01/28/22 02/09/22 WBC 3.8 - 9.9 K/cumm 8.4 9.3 9.7 15.8 (A) Total Hb, POC 11.9 - 15.5 g/dL 11.6 (A) 13.0 12.7 13.2 Hct 35.6 - 45.5 % 36.7 39.9 40.8 41.9 Plt 150 - 400 K/cumm 275 317 293 309 Neutrophil abs 1.7 - 6.5 K/cumm 6.0 6.1 12.1 (A) Lymphocytes, abs 0.8 - 3.3 K/cumm 2.4 2.5 2.5 (A) Abnormal value Comments are available for some flowsheets but are not being displayed. Assessment & Plan Recurrent UTI with micro hematuria -has multiple medication allergies, include documented hives to levofloxacin although she toleratedciprofloxacin in the ER -continue ciprofloxacin empirically; follow-up urine culture result -will consult with ID to determine need for long-term prophylactic antibiotics Positive COVID-19 test: Asymptomatic Type 2 DM: Insulin regimen as ordered CHF: Not in acute exacerbation On Xarelto for DVT/PE history Greater than 2 midnights he MDM: Brittnee Florentino MD 11:44 PM 02/09/2022 [facility] Hospitalist Group documented in this encounter Consult Notes * Genaro Coy MD - 02/10/2022 11:11 AM CDTAssociated Order(s): IP CONSULT TO INFECTIOUS DISEASES Infectious Disease Consult Requesting physician: Lila MCKEON Date of consultation: 02/10/2022 Reason for consultation: Recurrent urinary tract infection with multiple antibiotics allergy HPI: 66-year-old female with significant past medical history for type 2 diabetes, obesity, overactive bladder, recurrent urinary tract infection, deep vein thrombosis, obesity and multiple antibiotics allergy apparently presented to the emergency room complaining of increased urinary frequency with lower abdominal pain x4 days. Patient stated that she has had chills associated with nausea and vomiting. No fever or chest pain. Patient was seen in the emergency room and diagnosed with urinary tract infection. Patient was started on ciprofloxacin due to her multiple antibiotics allergy. I was requested to see her for further evaluation. Patient states she feels better this morning. Decreased abdominal pain. No nausea or vomiting. Patient denies any diarrhea Past Medical History: Diagnosis Date Adiposity obesity [...] US SOFT TISSUE ABSCESS DRAIN N/A 10/24/2014 HOME MEDICATIONS : albuterol HFA (PROVENTIL HFA,VENTOLIN HFA,PROAIR HFA) 90 [...] mg tablet rOPINIRole (REQUIP) 5 mg tablet Current Facility-Administered Medications Ordered in Epic Medication Dose Route Frequency Provider Last Rate Last Admin acetaminophen (TYLENOL) tablet 650 mg 650 mg oral Q4H PRN Blaze Armenta, PATIENT SAFETY ATTENDANT 650 mg at 02/09/22 5803 albuterol HFA (PROVENTIL HFA,VENTOLIN HFA,PROAIR HFA) 90 mcg/actuation inhaler 2 puff 2 puff inhalation Q6H While awake (RT) Blaze Armenta NP amitriptyline (ELAVIL) tablet 25 mg 25 mg oral Nightly Blaze Armenta NP 25 mg at 02/10/22 0021 sodium chloride 0.9% flush 0.5-20 mL 0.5-20 mL intra-catheter Q8H RODERICK Blaze Armenta NP 10 mL at 02/10/22 0624 And sodium chloride 0.9% flush 0.5-20 mL 0.5-20 mL intra-catheter PRN Blaze Armenta NP And Carrier Fluids for Secondary Infusion - 0.9% Sodium Chloride 30 mL intravenous PRN Blaze Armenta NP 30 mL at 02/10/22 0615 ciprofloxacin (CIPRO) 400 mg/200 mL in dextrose 5% (premix) 400 mg 400 mg intravenous BID - Blaze Alva NP 200 mL/hr at 02/10/22 0615 400 mg at 02/10/22 0615 dextrose gel in packet 15 g 15 g oral Q15 Min PRN Blaze Armenta NP Or dextrose (D10W) 10% bolus 250 mL 250 mL intravenous Q15 Min PRN Blaze Armenta NP glucagon injection 1 mg 1 mg intramuscular Q30 Min PRN Blaze Armenta NP insulin glargine (LANTUS, SEMGLEE) 100 unit/mL injection 33 Units 0.25 Units/kg subcutaneous Nightly Blaze Armenta NP 33 Units at 02/10/22 0021 insulin lispro (HumaLOG, ADMELOG) 100 unit/mL injection 0-10 Units 0-10 Units subcutaneous TID withmeals Blaze Armenta NP insulin lispro (HumaLOG, ADMELOG) 100 unit/mL injection 0-5 Units 0-5 Units subcutaneous Nightly Blaze Armenta NP 1 Units at 02/10/22 0021 insulin lispro (HumaLOG, ADMELOG) 100 unit/mL injection 11 Units 0.083 Units/kg subcutaneous TID with meals Blaze Armenta NP 11 Units at 02/10/22 1015 meclizine (ANTIVERT) tablet 25 mg 25 mg oral TID PRN Blaze Armenta NP morphine injection 2 mg 2 mg intravenous Q4H PRN Mariel Florentino MD 2 mg at 02/10/22 0510 ondansetron ODT (ZOFRAN-ODT) disintegrating tablet 4 mg 4 mg oral Q6H PRN Blaze Armenta NP Or ondansetron (ZOFRAN) injection 4 mg 4 mg intravenous Q6H PRN Blaze Armenta NP polyethylene glycol (MIRALAX) packet 17 g 17 g oral Daily PRN Blaze Armenta NP ramelteon (ROZEREM) tablet 8 mg 8 mg oral Nightly PRN Blaze Armenta NP rivaroxaban (XARELTO) tablet 20 mg 20 mg oral Daily with dinner Blaze Armenta NP 20 mg at rOPINIRole (REQUIP) tablet 5 mg 5 mg oral Nightly Blaze Armenta NP No current Epic-ordered outpatient medications on file. Anti-infectives (From admission, onward) Start Dose/Rate Route Frequency Ordered Stop 02/10/22 0600 ciprofloxacin (CIPRO) 400 mg/200 mL in dextrose 5% (premix) 400 mg 400 mg 200 mL/hr over 60 Minutes intravenous 2 times daily (for quinolones,etc) 02/09/222212 Immunosuppressive Medications: Immunosuppressive Medications (From admission, onward) None Active LDAs: Peripheral IV 02/09/22 20 G Right Antecubital (Active) Site Assessment Clean and dry 02/09/222329 IV Line Status Single Flushes easily;Capped;Saline locked 02/09/222329 Dressing Type Transparent 02/09/222329 Dressing Status Clean, dry, intact 02/09/222329 Reason Not Rotated Not clinically indicated 02/09/222329 Number of days: 1 [REMOVED] Peripheral IV 10/02/20 20 G Right Antecubital (Removed) Number of days: 0 [REMOVED] Peripheral IV 11/19/20 22 G Right Antecubital (Removed) Number of days: 0 [REMOVED] Peripheral IV 01/05/21 22 G Right Antecubital (Removed) Site Assessment Clean and dry 01/05/21 1736 IV Line Status Single Blood return noted;Flushes easily;Saline locked 01/05/21 1736 Dressing Type Transparent 01/05/21 1625 Dressing Status Clean, dry, intact 01/05/21 1736 Number of days: 0 [REMOVED] Peripheral IV 08/01/21 20 G Right Antecubital (Removed) Site Assessment Clean and dry 08/03/21 2100 IV Line Status Single Saline locked;Flushes easily 08/04/21 1000 Dressing Type Transparent 08/04/21 1000 Dressing Status Clean, dry, intact 08/03/21 2100 Reason Not Rotated Not clinically indicated 08/03/21 2100 Number of days: 3 [REMOVED] Peripheral IV 08/16/21 20 G Right Antecubital (Removed) Number of days: 0 [REMOVED] Peripheral IV 09/11/21 20 G Right Forearm (Removed) Site Assessment Clean and dry 09/14/21 1114 IV Line Status Single Flushes easily 09/14/21 [...] Arm (Removed) Site Assessment Clean and dry 12/26/21 112 IV Line Status Single Flushes easily 12/26/21 1122 Dressing Type Transparent 12/26/21 1122 Dressing Status Clean, dry, intact 12/26/21 112 Reason Not Rotated Not clinically indicated 12/25/211904 Number of days: 3 [REMOVED] Peripheral IV 01/28/22 20 G Right Antecubital (Removed) Number of days: 0 Allergies Allergen Reactions Ceftriaxone Anaphylaxis R Ceftriaxone [...] Negative for abdominal pain and diarrhea. Genitourinary: Increase frequency of urine associated with lower abdominal pain x4 days. Musculoskeletal: Negative for joint pain and myalgias. Neurological: Negative for seizures. Endo/Heme/Allergies: Negative for polydipsia. Does not bruise/bleed easily. Psychiatric/Behavioral: Negative for depression. Skin: No rash. Objective Vitals: 24hr Min/Max: Temp Min: 36.7 ??C (98 ??F) Max: 36.8 ??C (98.2 ??F) Pulse Min: 77 Max: 97 BP Min: 128/82 Max: 178/93 Resp Min: 9 Max: 26 SpO2 Min: 94 % Max: 100 % Most Recent : Vitals: 02/10/22 0816 BP: 128/82 Pulse: 77 Resp: 20 Temp: 36.7 ??C (98 ??F) SpO2: 96% I/O last 2 completed shifts: In: 10 [I.V.:10] Out: - I/O this shift: In: 240 [P.O.:240] Out: - Physical Exam: General: Well appearing, [...] and affect. Lymph Node: normal Lab/Radiology/Diagnostic Review: Recent Results (from the past 72 hour(s)) CBC with auto differential Collection Time: 02/09/22 1:12 PM Result Value Ref Range WBC 15.8 (H) 3.8 - 9.9 K/cumm Hgb 13.2 11.9 - 15.5 g/dL Hct 41.9 35.6 - 45.5 % Plt 309 150 - 400 K/cumm MPV 9.6 9.1 - 12.3 fL RBC 4.59 3.90 - 5.20 M/cumm MCV 91.3 81.3 - 96.4 fL MCH 28.8 27.1 - 33.3 pg MCHC 31.5 (L) 32.3 - 35.7 g/dL RDW CV 14.4 11.1 - 14.9 % RDW SD 48.2 (H) 35.7 - 48.1 fL NRBC abs 0.00 0.00 - 0.01 K/cumm Comprehensive metabolic panel Collection Time: 02/09/22 1:12 PM Result Value Ref Range Sodium 141 135 - 145 mmol/L Potassium, pl 4.2 3.3 - 4.9 mmol/L Chloride 102 97 - 110 mmol/L CO2 26 22 - 32 mmol/L Anion gap 13 2 - 15 mmol/L BUN 24 8 - 25 mg/dL Creatinine 1.00 0.60 - 1.10 mg/dL Glucose 217 (H) 70 - 199 mg/dL Calcium 10.2 8.5 - 10.3 mg/dL Bilirubin, total 0.8 0.1 - 1.2 mg/dL Protein, pl 8.6 (H) 6.5 - 8.5 g/dL Albumin 4.1 3.5 - 5.0 g/dL Alk phos 108 40 - 130 Units/L ALT 22 7 - 45 Units/L AST 18 10 - 45 Units/L Sepsis Lactate w/ Reflex Collection Time: 02/09/22 1:12 PM Result Value Ref Range Sepsis Lactate 1.8 0.7 - 2.0 mmol/L Pro B-type natriuretic peptide Collection Time: 02/09/22 1:12 PM Result Value Ref Range NT-proBNP 89 <=300 pg/mL Troponin T high-sensitivity series (baseline, 2hr, 4hr, 6hr) Collection Time: 02/09/22 1:12 PM Result Value Ref Range Trop T hs 19 (H) <=14 ng/L Differential, auto Collection Time: 02/09/22 1:12 PM Result Value Ref Range Neutrophil abs 12.1 (H) 1.7 - 6.5 K/cumm Imm gran abs 0.1 0.0 - 0.1 K/cumm Lymphocyte abs 2.5 0.8 - 3.3 K/cumm Monocyte abs 1.0 (H) 0.2 - 0.8 K/cumm Eosinophil abs 0.1 0.0 - 0.5 K/cumm Basophil abs 0.1 0.0 - 0.1 K/cumm Neutrophil pct 76.6 % Imm gran pct 0.5 % Lymphocyte pct 15.7 % Monocyte pct 6.3 % Eosinophil pct 0.6 % Basophil pct 0.3 % eGFR Collection Time: 02/09/22 1:12 PM Result Value Ref Range eGFR 63 mL/min/1.73 m2 ECG 12 lead Collection Time: 02/09/22 1:19 PM Result Value Ref Range Ventricular Rate EKG/Min 92 BPM Atrial Rate 92 BPM MO-Interval (MSEC) 134 ms QRS-Interval (MSEC) 76 ms QT-Interval (MSEC) 348 ms QTc 430 ms P Mallie 8 degrees R Mallie 0 degrees T Mallie 16 degrees Diagnosis Normal sinus rhythm Nonspecific T wave abnormality Abnormal ECG When compared with ECG of 28-JAN-2022 16:59, Premature atrial complexes are no longer Present Urinalysis reflex to microscopic and culture Urine Collection Time: 02/09/22 1:28 PM Specimen: Urine Result Value Ref Range Color, ur Yellow Yellow Clarity, ur Cloudy (A) Clear Specific gravity, ur 1.015 1.003 - 1.030 pH, urine 6.0 Protein, ur ql Negative Negative Glucose, ur ql Negative Negative Ketones, ur Negative Negative Bilirubin, ur Negative Negative Blood, ur 1+ (A) Negative Urobilinogen, ur 0.2 <2.0 mg/dL Nitrite, ur Positive (A) Negative Leukocyte esterase, ur 2+ (A) Negative UA reflex comment Reflex to microscopic UA will be performed. Urinalysis, microscopic only Collection Time: 02/09/22 1:28 PM Result Value Ref Range WBC, ur >50 (A) 0 - 5 /HPF RBC, ur 6-10 (A) 0 - 2 /HPF Culture Reflex Comment Reflex to urine culture will be performed. Troponin T high-sensitivity 2-hour Collection Time: 02/09/22 3:37 PM Result Value Ref Range Trop T hs 18 (H) <=14 ng/L Trop T hs delta -1 ng/L Trop T hs interp Insignificant Influenza A/B, RSV, and COVID-19 PCR Nasopharyngeal Collection Time: 02/09/22 4:46 PM Specimen: Nasopharyngeal Result Value Ref Range COVID-19 RNA Positive (A) Negative Influenza A RNA Negative Negative Influenza B RNA Negative Negative RSV RNA Negative Negative Protime-INR Collection Time: 02/09/22 4:55 PM Result Value Ref Range PT 18.1 (H) 12.0 - 14.6 sec INR 1.5 (H) 0.9 - 1.2 aPTT Collection Time: 02/09/22 4:55 PM Result Value Ref Range aPTT 32 22 - 37 sec POCT glucose Collection Time: 02/09/22 10:27 PM Result Value Ref Range Glucose, POC 161 70 - 199 mg/dL Glucose comment 1 Use This Result Basic metabolic panel Collection Time: 02/10/22 6:12 AM Result Value Ref Range Sodium 138 135 - 145 mmol/L Potassium, pl 4.4 3.3 - 4.9 mmol/L Chloride 101 97 - 110 mmol/L CO2 28 22 - 32 mmol/L Anion gap 9 2 - 15 mmol/L BUN 21 8 - 25 mg/dL Creatinine 0.70 0.60 - 1.10 mg/dL Glucose 139 70 - 199 mg/dL Calcium 10.0 8.5 - 10.3 mg/dL CBC with auto differential Collection Time: 02/10/22 6:12 AM Result Value Ref Range WBC 14.2 (H) 3.8 - 9.9 K/cumm Hgb 13.1 11.9 - 15.5 g/dL Hct 41.2 35.6 - 45.5 % Plt 288 150 - 400 K/cumm MPV 9.8 9.1 - 12.3 fL RBC 4.55 3.90 - 5.20 M/cumm MCV 90.5 81.3 - 96.4 fL MCH 28.8 27.1 - 33.3 pg MCHC 31.8 (L) 32.3 - 35.7 g/dL RDW CV 14.6 11.1 - 14.9 % RDW SD 48.1 35.7 - 48.1 fL NRBC abs 0.00 0.00 - 0.01 K/cumm Differential, auto Collection Time: 02/10/22 6:12 AM Result Value Ref Range Neutrophil abs 10.4 (H) 1.7 - 6.5 K/cumm Imm gran abs 0.1 0.0 - 0.1 K/cumm Lymphocyte abs 2.6 0.8 - 3.3 K/cumm Monocyte abs 0.9 (H) 0.2 - 0.8 K/cumm Eosinophil abs 0.2 0.0 - 0.5 K/cumm Basophil abs 0.0 0.0 - 0.1 K/cumm Neutrophil pct 73.5 % Imm gran pct 0.4 % Lymphocyte pct 18.4 % Monocyte pct 6.4 % Eosinophil pct 1.1 % Basophil pct 0.2 % eGFR Collection Time: 02/10/22 6:12 AM Result Value Ref Range eGFR 96 mL/min/1.73 m2 POCT glucose Collection Time: 02/10/22 8:21 AM Result Value Ref Range Glucose, POC 131 70 - 199 mg/dL Glucose comment 1 Use This Result Blood cultures x2 set pending COVID-19 PCR test positive 02/09/2022 Urinalysis nitrite is positive, leukocyte Estrace 2+ cultures pending. CT scan of the chest, abdomen and pelvis with contrast: 1. No acute abnormality in the chest, abdomen, or pelvis. Assessment and plan: 1. Leukocytosis associated with abdominal pain and pyuria. Patient has remained afebrile. CT scan of chest abdomen and pelvis was unremarkable. Patient claims to have recurrent urinary tract infection. Continue ciprofloxacin. Follow-up on blood cultures and urine cultures and adjust antibiotics accordingly. 2.. Type 2 diabetes with blood sugars ranging between 131-217. Request hemoglobin A1c if not done. 3. Multiple antibiotics allergy : Ceftriaxone causes anaphylaxis Zosyn causes rash, levofloxacin unknown but tolerates ciprofloxacin. Previously has tolerated carbapenems. Will monitor closely on ciprofloxacin 4. Obesity with BMI of 53 5. Positive COVID-19 test with no clinical symptoms. CT scan of the chest was unremarkable. No hypoxia. Not a candidate for treatment or steroids. documented in this encounter Nursing Notes * Freda Green RN - 02/16/2022 8:55 AM CDT CAT call initiated. Patient not feeling well flushed, feels like passing out. Hands, fingers tingling. See CAT documentation per anne-marie Polo RN. Feeling better after Benadry administered, see EMAR. * Ricarda Albert RN - 02/10/2022 9:59 AM CDT Per pt, 3 weeks ago she took a home Covid test d/t nasal congestion she was having and it showed positive so she went to a local hospital where she also tested positive. Pt remains asymptomatic and states she has had no symptoms for 2 plus weeks. said okay to remove from isolation. * Jane Urena RN - 02/10/2022 12:42 AM CDT Patient admitted from ED to the unit room 524-1 with dx of cystitis. Patient assessed by hospitalist. Routine admission care rendered. Patient medicated for pain as requested, CPAP provided. On isolation precautions for COVID-19. Patient oriented to surroundings and unit protocol, questions answered. Resting in bed comfortably at present. documented in this encounter ED Notes * Lila Gasca PA - 02/09/2022 4:42 PM CDT HPI Chief Complaint Patient presents with Urinary Problem Peripheral Edema HPI 7:34 PM Karly Marques is a 66 y.o. female with pmhx obesity, breast ca, CHF, depression, DM, DVt/PE, presenting to the ED c/o UTI sx x 7 days. She admits to urinary frequency, nausea, vomiting, fatigue, suprapubic abdominal pain, chills, R flank pain. She had an episode of incontinence here at the ER. She also notes worsening dyspnea on exertion and SOB x 1 day. Pt states she had covid 3-4 weeks ago with upper respiratory symptoms. Pt notes recurrent UTI since September. In October her spinal cord stimulator developed an abscess and she was treated for osteomyelitis. She states she just finished a round of Bactrim this month but her symptoms returned. Pt is on Xarelto for a known PE/DVT Patient History: Past Medical History: Diagnosis Date [...] of Binge Drinking: Never Current Facility-Administered Medications: phenazopyridine (URISTAT) tablet 99.5 mg, 99.5 mg, oral, Once Current Outpatient Medications: albuterol HFA (PROVENTIL HFA,VENTOLIN HFA,PROAIR HFA) 90 mcg/actuation inhaler amitriptyline (ELAVIL) 25 mg tablet BD Ultra-Fine Short Pen Needle 31 gauge x 5/16 needle blood glucose diagnostic ([employer]Touch Ultra Test) strip exemestane (AROMASIN) 25 mg [...] chills and fatigue. Negative for fever. HENT: Negative for ear pain and sore throat. Eyes: Negative for pain and visual disturbance. Respiratory: Positive for shortness of breath. Negative for cough. Cardiovascular: Positive for leg swelling. Negative for chest pain and palpitations. Gastrointestinal: Positive for abdominal pain, nausea and vomiting. Genitourinary: Positive for flank pain (R) and frequency. Negative for dysuria and hematuria. +incontinence Musculoskeletal: Negative for arthralgias and back pain. Skin: Negative for color change and rash. Neurological: Negative for seizures and syncope. All other systems reviewed and are negative. Physical Exam ED Triage Vitals Temp Pulse Resp BP SpO2 02/09/22 1303 02/09/22 1303 02/09/22 1303 02/09/22 1303 02/09/22 1303 36.7 ??C (98.1 ??F) 97 18 (!) 178/93 99 % Temp src Heart Rate Source Patient Position BP Location FiO2 (%) 02/09/22 1303 02/09/22 1645 02/09/22 1556 02/09/22 1700 -- Oral Monitor Sitting Right arm Height [...] There is abdominal tenderness. There is no guarding. Musculoskeletal: Cervical back: Neck supple. Right lower leg: Edema (1+) present. Left lower leg: Edema (1+) present. Skin: General: Skin is warm and dry. Neurological: Mental Status: She is alert and oriented to person, place, and time. Procedures [facility] Labs Reviewed URINALYSIS AND REFLEX TO MICROSCOPIC AND CULTURE - Abnormal Result Value Color, ur Yellow Clarity, ur Cloudy (*) Specific gravity, ur 1.015 pH, urine 6.0 Protein, ur ql Negative Glucose, ur ql Negative Ketones, ur Negative Bilirubin, ur Negative Blood, ur 1+ (*) Urobilinogen, ur 0.2 Nitrite, ur Positive [...] for uric acid stone formation. Source: [facility] [place].Last revised 05-04-2017 INFLUENZA A/B, RSV, AND COVID-19 PCR - Abnormal COVID-19 RNA Positive (*) Influenza A RNA Negative Influenza B RNA Negative RSV RNA Negative Narrative: Is the Patient experiencing symptoms consistent with COVID?->Yes Date of Symptom Onset->02/09/22 Reason for testing?->Symptomatic CBC WITH AUTO DIFFERENTIAL - Abnormal WBC 15.8 (*) Hgb 13.2 Hct 41.9 Plt 309 MPV 9.6 RBC 4.59 MCV 91.3 MCH 28.8 MCHC 31.5 (*) RDW CV 14.4 RDW SD 48.2 (*) NRBC abs 0.00 COMPREHENSIVE METABOLIC PANEL - Abnormal Sodium 141 Potassium, pl 4.2 Chloride 102 CO2 26 Anion gap 13 BUN 24 Creatinine 1.00 Glucose 217 (*) Calcium 10.2 Bilirubin, total 0.8 Protein, pl 8.6 (*) Albumin 4.1 Alk phos 108 ALT 22 AST 18 TROPONIN T HIGH-SENSITIVITY SERIES (BASELINE, 2HR, 4HR, 6HR) - Abnormal Trop T hs 19 (*) DIFFERENTIAL AUTO - Abnormal Neutrophil abs 12.1 (*) Imm gran abs 0.1 Lymphocyte abs 2.5 Monocyte abs 1.0 (*) Eosinophil abs 0.1 Basophil abs 0.1 Neutrophil pct 76.6 Imm gran pct 0.5 Lymphocyte pct 15.7 Monocyte pct 6.3 Eosinophil pct 0.6 Basophil pct 0.3 TROPONIN T HIGH-SENSITIVITY 2-HOUR - Abnormal Trop T hs 18 (*) Trop T hs delta -1 Trop T hs interp Insignificant URINALYSIS, MICROSCOPIC ONLY - Abnormal WBC, ur >50 (*) RBC, ur 6-10 (*) Culture Reflex Comment Reflex to urine culture will be performed. PROTIME-INR - Abnormal PT 18.1 (*) INR 1.5 (*) URINE CULTURE BLOOD CULTURE BLOOD CULTURE SEPSIS LACTATE WITH REFLEX Sepsis Lactate 1.8 PRO B-TYPE NATRIURETIC PEPTIDE NT-proBNP 89 EGFR eGFR [address] Chest Abdomen Pelvis W Contrast Final Result BP 140/80 (BP Location: Right arm, Patient Position: Lying) Pulse 79 Temp 36.7 ??C (98.1 ??F) (Oral) Resp 18 SpO2 97% Patient???s symptoms not typical for emergent causes of abdominal pain such as, but not limited to,appendicitis, abdominal aortic aneurysm, surgical biliary disease, pancreatitis, SBO, mesenteric ischemia, serious intra-abdominal bacterial illness. Presentation also not typical of gynecologic emergencies such as TOA, Ovarian Torsion, PID. Not Ectopic. Doubt atypical ACS. ED Course: CBC 15.8, UA with 1+ Blood, nitrites, 2+ LE and > 50 WBC. INR 1.5, Pt 18.1. Pt positive for covid, unsure if this is residual from having covid 1 month ago or if this is reinfection with pt havingdyspnea. CT IMPRESSION: 1. No acute abnormality in the chest, abdomen, or pelvis. 2. Noncalcified pulmonary nodules. According to Fleischner society guidelines if patient is low risk no further follow-up. If patient is high risk optional follow-up CT chest without contrast in 1 year. Case discussed with: Dr. Florentino, pt will be admitted to [facility] for expected stay 2+ nights History, physical exam, labs, radiographic evaluation, medications/interventions, were discussed. Disposition: home This examination was transcribed using the [employer] voice recognition system without human metal hanger. In an effort to expedite patient care, this report has not been adjusted for typographical, grammatical, and syntax by a trained medical technician assistant. Clinical Impression: Cystitis Lila Gasca PA 02/09/221933 Cosigned by Len Cerna MD at 02/19/2022 8:54 AM CDT Associated attestation - Len Cerna MD - 02/19/2022 8:54 AM CDT ED Attestation This patient was independently evaluated by the APC. I was available for immediate consultation andin-person evaluation if required but was not asked to do so. * Rula Petty RN - 02/09/2022 1:00 PM CDT Pt states I have a bad UTI. Pt A&Ox4. Pt c/o urinary frequency, nausea, vomiting, lower abdominal pain, bloating, leg and foot swelling, shortness of breath upon exertion. Pt states she is not being tx for UTI currently. Breathing even non labored documented in this encounter Miscellaneous Notes * Plan of Care - Emilia Granados RRT - 02/17/2022 10:12 AM CDT Problem: Respiratory distress related to problem list condition Goal: Resident will be free of signs and symptoms of respiratory distress aeb lungs clear to ausc bilateral, resp even and nonlabored Description: INTERVENTIONS: 1. Observe for and document signs and symptoms respiratory distress: shortness of breath, dyspnea, cyanosis, labored respirations, congestion, cough, adventitious lung sounds, and report to provider 2. Auscultate lungs as needed and report abnormals to provider 3. Obtain oxygen saturation as needed 4. Oxygen at 2 LPM per nasal canula as needed 5. Observe for and document signs and symptoms of congestive heart failure: pulmonary congestion, edema, change in rate and character of heart rate, and report to provider 6. Nurse will administer medication as ordered by provider 7. Droplet isolation per order 8. Elevate head of bed for respiratory ease 9. Encourage coughing and deep breathing to facilitate deep respirations and removal of secretions 10. Encourage resident to participate in ADLs and activities 11. Obtain chest x-ray as ordered and report results to provider 12. Obtain sputum culture as ordered and report results to provider Outcome: Progressing * Plan of Care - Freda Green RN - 02/17/2022 7:35 AM CDT Problem: Lack of Knowledge: Goal: Ability to [...] Goal: Pain level will decrease Outcome: Progressing Problem: Health Behavior: Goal: Understanding of discharge needs will improve Outcome: Progressing Problem: Activity: Goal: Risk for activity intolerance will decrease Outcome: Progressing Problem: Lack of Knowledge: Goal: Knowledge of disease or condition will improve Outcome: Progressing Goal: Knowledge of safety precautions will improve Outcome: Progressing Goal: Knowledge of the prescribed therapeutic regimen will improve Outcome: Progressing Problem: Infection Risk: Goal: Will remain free from infection Outcome: Progressing Problem: Safety: Goal: Ability to remain free from injury will improve Outcome: Progressing Goal: Will remain free from falls Outcome: Progressing Problem: Urinary Elimination: Goal: Signs and symptoms of infection will decrease Outcome: Progressing Goal: Ability to reestablish a normal urinary elimination pattern will improve Outcome: Progressing Goal: Complications related to the disease process, condition or treatment will be avoided or minimized Outcome: Progressing Problem: Respiratory: Goal: Will maintain a patent airway Outcome: Progressing Problem: Lack of Knowledge: Goal: Ability to state ways to decrease the risk of falls will improve Outcome: Progressing Problem: Safety: Goal: Will remain free from falls Outcome: Progressing Goal: Will remain free from injury from falls Outcome: Progressing Goal: Will remain free from falls and injury in home environment Outcome: Progressing Problem: Respiratory distress related to problem list condition Goal: Resident will be free of signs and symptoms of respiratory distress aeb lungs clear to ausc bilateral, resp even and nonlabored Description: INTERVENTIONS: 1. Observe for and document signs and symptoms respiratory distress: shortness of breath, dyspnea, cyanosis, labored respirations, congestion, cough, adventitious lung sounds, and report to provider 2. Auscultate lungs as needed and report abnormals to provider 3. Obtain oxygen saturation as needed 4. Oxygen at 2 LPM per nasal canula as needed 5. Observe for and document signs and symptoms of congestive heart failure: pulmonary congestion, edema, change in rate and character of heart rate, and report to provider 6. Nurse will administer medication as ordered by provider 7. Droplet isolation per order 8. Elevate head of bed for respiratory ease 9. Encourage coughing and deep breathing to facilitate deep respirations and removal of secretions 10. Encourage resident to participate in ADLs and activities 11. Obtain chest x-ray as ordered and report results to provider 12. Obtain sputum culture as ordered and report results to provider Outcome: Progressing Goals: Clinical Goals for the Shift: Pain control, Stable vitals, Comfort * Plan of Care - Bubba Campbell RN - 02/17/2022 3:21 AM CDT Goals: Clinical Goals for the Shift: Pain control, Stable vitals, Comfort Summary: Assessment of patient???s baseline is established at the beginning of the shift in flowsheets. Patient reassessed per order, unexpected findings and/or deviations from baseline are captured in flowsheets. Frequent safety checks and comfort rounds provided. Orders and/or nursing care completed as indicated. Patient monitored for response to interventions and treatments as documented in flowsheets.Pt has had pain managed with medication to tolerable level. No other complaints or complicaitons. Pt has been resting through the night. Plan of care discussed with patient/credit representative, including as it relates to Principal Problem: Cystitis Active Problems: Essential hypertension History of pulmonary embolism Type 2 diabetes mellitus with neurologic complication, without long-term current use of insulin ([facility]) Lab test positive for detection of COVID-19 virus Patient progressing. Education provided includes Discharge Planning, Fall Prevention, and Pain Management. Patient and/or credit representative Verbalizes understanding. Will continue to monitor. * Plan of Care - Paula Gonsalves RRT - 02/16/2022 8:30 PM CDT Problem: Respiratory: Goal: Will maintain a patent airway Outcome: Progressing * Plan of Care - Grisel Solano CRTT - 02/16/2022 4:45 PM CDT Problem: Respiratory distress related to problem list condition Goal: Resident will be free of signs and symptoms of respiratory distress aeb lungs clear to ausc bilateral, resp even and nonlabored Description: INTERVENTIONS: 1. Observe for and document signs and symptoms respiratory distress: shortness of breath, dyspnea, cyanosis, labored respirations, congestion, cough, adventitious lung sounds, and report to provider 2. Auscultate lungs as needed and report abnormals to provider 3. Obtain oxygen saturation as needed 4. Oxygen at 2 LPM per nasal canula as needed 5. Observe for and document signs and symptoms of congestive heart failure: pulmonary congestion, edema, change in rate and character of heart rate, and report to provider 6. Nurse will administer medication as ordered by provider 7. Droplet isolation per order 8. Elevate head of bed for respiratory ease 9. Encourage coughing and deep breathing to facilitate deep respirations and removal of secretions 10. Encourage resident to participate in ADLs and activities 11. Obtain chest x-ray as ordered and report results to provider 12. Obtain sputum culture as ordered and report results to provider Outcome: Progressing * Plan of Care - Freda Green RN - 02/16/2022 7:55 AM CDT Problem: Lack of Knowledge: Goal: Ability to [...] Goal: Pain level will decrease Outcome: Progressing Problem: Health Behavior: Goal: Understanding of discharge needs will improve Outcome: Progressing Problem: Activity: Goal: Risk for activity intolerance will decrease Outcome: Progressing Problem: Lack of Knowledge: Goal: Knowledge of disease or condition will improve Outcome: Progressing Goal: Knowledge of safety precautions will improve Outcome: Progressing Goal: Knowledge of the prescribed therapeutic regimen will improve Outcome: Progressing Problem: Infection Risk: Goal: Will remain free from infection Outcome: Progressing Problem: Safety: Goal: Ability to remain free from injury will improve Outcome: Progressing Goal: Will remain free from falls Outcome: Progressing Problem: Urinary Elimination: Goal: Signs and symptoms of infection will decrease Outcome: Progressing Goal: Ability to reestablish a normal urinary elimination pattern will improve Outcome: Progressing Goal: Complications related to the disease process, condition or treatment will be avoided or minimized Outcome: Progressing Problem: Respiratory: Goal: Will maintain a patent airway Outcome: Progressing Problem: Lack of Knowledge: Goal: Ability to state ways to decrease the risk of falls will improve Outcome: Progressing Problem: Safety: Goal: Will remain free from falls Outcome: Progressing Goal: Will remain free from injury from falls Outcome: Progressing Goal: Will remain free from falls and injury in home environment Outcome: Progressing Goals: Clinical Goals for the Shift: Pain control, Stable vitals, Comfort * Plan of Tyrese - Taj Melton RN - 02/16/2022 5:05 AM CDT Goals: Clinical Goals for the Shift: Pain control, Stable vitals, Comfort Problem: Medication: Goal: Satisfaction with pain management regimen will improve Outcome: Progressing Problem: Sensory: Goal: Ability to identify factors that increase the pain will improve Outcome: Progressing Goal: Pain level will decrease Outcome: Progressing Problem: Health Behavior: Goal: Understanding of discharge needs will improve Outcome: Progressing Problem: Activity: Goal: Risk for activity intolerance will decrease Outcome: Progressing Problem: Safety: Goal: Ability to remain free from injury will improve Outcome: Progressing Goal: Will remain free from falls Outcome: Progressing * Plan of Care - Paula Gonsalves RRT - 02/15/2022 8:31 PM CDT Problem: Respiratory: Goal: Will maintain a patent airway Outcome: Progressing * Plan of Care - Allie Saldivar RN - 02/15/2022 9:21 AM CDT Goals: Clinical Goals for the Shift: Pain control, Stable vitals, Comfort Summary: Patient remains A/OX4, up independent&walks halls, On room air. Continues on IV abt's.Denies pain. Tolerating food well. Plan to dc later today per MD. Problem: Lack of Knowledge: Goal: Ability to [...] Goal: Pain level will decrease Outcome: Progressing Problem: Lack of Knowledge: Goal: Knowledge of disease or condition will improve Outcome: Progressing Goal: Knowledge of safety precautions will improve Outcome: Progressing Goal: Knowledge of the prescribed therapeutic regimen will improve Outcome: Progressing Problem: Safety: Goal: Ability to remain free from injury will improve Outcome: Progressing Goal: Will remain free from falls Outcome: Progressing Problem: Respiratory: Goal: Will maintain a patent airway Outcome: Progressing * Plan of Care - Eric Stringer RN - 02/14/2022 10:48 PM CDT Goals: Clinical Goals for the Shift: Pain medication, atb therapy Summary: Pt complained of tingling in her extremities and restlessness. Pt said that the antibioticmay have done it. After charge nurse talk, pt agreed that it may be morphine. So morphine dose skipped and IV atb given, 4 hours post administration pt is again asking for pain meds because she was having flank pain, and restlessness. Morphine and benadryl given. Comfort and safety. * Plan of Care - Grisel Solano CRTT - 02/14/2022 8:13 AM CDT Problem: Respiratory: Goal: Will maintain a patent airway Outcome: Progressing * Plan of Care - Tamika Schwab RN - 02/13/2022 10:48 PM CDT Problem: Lack of Knowledge: Goal: Ability to [...] Goal: Pain level will decrease Outcome: Progressing Problem: Health Behavior: Goal: Understanding of discharge needs will improve Outcome: Progressing Problem: Activity: Goal: Risk for activity intolerance will decrease Outcome: Progressing Problem: Lack of Knowledge: Goal: Knowledge of disease or condition will improve Outcome: Progressing Goal: Knowledge of safety precautions will improve Outcome: Progressing Goal: Knowledge of the prescribed therapeutic regimen will improve Outcome: Progressing Problem: Infection Risk: Goal: Will remain free from infection Outcome: Progressing Problem: Safety: Goal: Ability to remain free from injury will improve Outcome: Progressing Goal: Will remain free from falls Outcome: Progressing Problem: Urinary Elimination: Goal: Signs and symptoms of infection will decrease Outcome: Progressing Goal: Ability to reestablish a normal urinary elimination pattern will improve Outcome: Progressing Goal: Complications related to the disease process, condition or treatment will be avoided or minimized Outcome: Progressing Problem: Lack of Knowledge: Goal: Ability to state ways to decrease the risk of falls will improve Outcome: Progressing Problem: Safety: Goal: Will remain free from falls Outcome: Progressing Goal: Will remain free from injury from falls Outcome: Progressing Goal: Will remain free from falls and injury in home environment Outcome: Progressing Goals: Clinical Goals for the Shift: medication education, safe pt handling and pain mgmt Summary: Received patient in bed. Alert and oriented. Calm and cooperative. VSS. Complain of pain relieved with prn pain medication. Complained of nausea relieved with prn zofran given as ordered. Due medication given. Hourly roundings performed. Needs attended. Safety maintained. Encouraged patient to use call light for assist. * Plan of Care - Paula Gonsalves RRT - 02/13/2022 9:16 PM CDT Problem: Respiratory: Goal: Will maintain a patent airway Outcome: Progressing * Plan of Care - Emilia Granados RRT - 02/13/2022 10:57 AM CDT Problem: Respiratory: Goal: Will maintain a patent airway Outcome: Progressing * Plan of Care - Tamika Schwab RN - 02/13/2022 2:03 AM CDT Problem: Lack of Knowledge: Goal: Ability to [...] Goal: Pain level will decrease Outcome: Progressing Problem: Health Behavior: Goal: Understanding of discharge needs will improve Outcome: Progressing Problem: Activity: Goal: Risk for activity intolerance will decrease Outcome: Progressing Problem: Lack of Knowledge: Goal: Knowledge of disease or condition will improve Outcome: Progressing Goal: Knowledge of safety precautions will improve Outcome: Progressing Goal: Knowledge of the prescribed therapeutic regimen will improve Outcome: Progressing Problem: Infection Risk: Goal: Will remain free from infection Outcome: Progressing Problem: Safety: Goal: Ability to remain free from injury will improve Outcome: Progressing Goal: Will remain free from falls Outcome: Progressing Problem: Urinary Elimination: Goal: Signs and symptoms of infection will decrease Outcome: Progressing Goal: Ability to reestablish a normal urinary elimination pattern will improve Outcome: Progressing Goal: Complications related to the disease process, condition or treatment will be avoided or minimized Outcome: Progressing Problem: Respiratory: Goal: Will maintain a patent airway Outcome: Progressing Problem: Lack of Knowledge: Goal: Ability to state ways to decrease the risk of falls will improve Outcome: Progressing Problem: Safety: Goal: Will remain free from falls Outcome: Progressing Goal: Will remain free from injury from falls Outcome: Progressing Goal: Will remain free from falls and injury in home environment Outcome: Progressing Goals: Clinical Goals for the Shift: comfort, safety, IV antibitiotics, VSS Summary: Received patient in bed. Alert and oriented. Calm and cooperative. VSS. Complained of painrelieved with prn pain medication. Due medication given. Hourly rounding's performed. Needs attended. Safety maintained. Encouraged patient to use call light for assist. * Plan of Care - Paula Gonsalves RRT - 02/12/2022 8:48 PM CDT Problem: Respiratory: Goal: Will maintain a patent airway Outcome: Progressing * Plan of Care - Jennifer Calvillo RN - 02/12/2022 4:26 PM CDT Problem: Lack of Knowledge: Goal: Ability to [...] Goal: Pain level will decrease Outcome: Progressing Problem: Health Behavior: Goal: Understanding of discharge needs will improve Outcome: Progressing Problem: Activity: Goal: Risk for activity intolerance will decrease Outcome: Progressing Problem: Lack of Knowledge: Goal: Knowledge of disease or condition will improve Outcome: Progressing Goal: Knowledge of safety precautions will improve Outcome: Progressing Goal: Knowledge of the prescribed therapeutic regimen will improve Outcome: Progressing Problem: Infection Risk: Goal: Will remain free from infection Outcome: Progressing Problem: Safety: Goal: Ability to remain free from injury will improve Outcome: Progressing Goal: Will remain free from falls Outcome: Progressing Problem: Urinary Elimination: Goal: Signs and symptoms of infection will decrease Outcome: Progressing Goal: Ability to reestablish a normal urinary elimination pattern will improve Outcome: Progressing Goal: Complications related to the disease process, condition or treatment will be avoided or minimized Outcome: Progressing Problem: Respiratory: Goal: Will maintain a patent airway Outcome: Progressing Problem: Lack of Knowledge: Goal: Ability to state ways to decrease the risk of falls will improve Outcome: Progressing Problem: Safety: Goal: Will remain free from falls Outcome: Progressing Goal: Will remain free from injury from falls Outcome: Progressing Goal: Will remain free from falls and injury in home environment Outcome: Progressing Goals: Clinical Goals for the Shift: comfort, safety, IV antibitiotics, VSS Summary: Pt. Had allergic rash reaction to IV cipro this am. IV benadryl administered. IV Meropenem started without sign of reaction. Increased right flank pain this evening dilaudid x 1 administered. Pt. Eating and drinking normally. * Plan of Care - Jane Urena RN - 02/12/2022 4:37 AM CDT Goals: Clinical Goals for the Shift: pain control, stable VS, comfort, sleep Problem: Lack of Knowledge: Goal: Ability to [...] Goal: Pain level will decrease Outcome: Progressing Problem: Health Behavior: Goal: Understanding of discharge needs will improve Outcome: Progressing Problem: Activity: Goal: Risk for activity intolerance will decrease Outcome: Progressing Problem: Lack of Knowledge: Goal: Knowledge of disease or condition will improve Outcome: Progressing Goal: Knowledge of safety precautions will improve Outcome: Progressing Goal: Knowledge of the prescribed therapeutic regimen will improve Outcome: Progressing Problem: Infection Risk: Goal: Will remain free from infection Outcome: Progressing Problem: Safety: Goal: Ability to remain free from injury will improve Outcome: Progressing Goal: Will remain free from falls Outcome: Progressing Problem: Urinary Elimination: Goal: Signs and symptoms of infection will decrease Outcome: Progressing Goal: Ability to reestablish a normal urinary elimination pattern will improve Outcome: Progressing Goal: Complications related to the disease process, condition or treatment will be avoided or minimized Outcome: Progressing Problem: Respiratory: Goal: Will maintain a patent airway Outcome: Progressing Problem: Lack of Knowledge: Goal: Ability to state ways to decrease the risk of falls will improve Outcome: Progressing Problem: Safety: Goal: Will remain free from falls Outcome: Progressing Goal: Will remain free from injury from falls Outcome: Progressing Goal: Will remain free from falls and injury in home environment Outcome: Progressing Summary: Assessment of patient???s baseline is established at the beginning of the shift in flowsheets. Patient reassessed per order, unexpected findings and/or deviations from baseline are captured in flowsheets. Patient had uneventful night, has slept most of shift with minimal interruptions. Orders and/or nursing care completed as indicated, medicated for pain as requested. Patient monitored for response tointerventions and treatments as documented in flowsheets. Frequent safety checks and comfort roundsprovided. * Plan of Care - Ricarda Albert RN - 02/11/2022 9:30 AM CDT Goals: Clinical goals for this shift: Control pain, IV abx, decreased urinary frequency and burning Problem: Lack of Knowledge: Goal: Ability to [...] Goal: Pain level will decrease Outcome: Progressing Problem: Health Behavior: Goal: Understanding of discharge needs will improve Outcome: Progressing Problem: Activity: Goal: Risk for activity intolerance will decrease Outcome: Progressing Problem: Lack of Knowledge: Goal: Knowledge of disease or condition will improve Outcome: Progressing Goal: Knowledge of safety precautions will improve Outcome: Progressing Goal: Knowledge of the prescribed therapeutic regimen will improve Outcome: Progressing Problem: Infection Risk: Goal: Will remain free from infection Outcome: Progressing Problem: Safety: Goal: Ability to remain free from injury will improve Outcome: Progressing Goal: Will remain free from falls Outcome: Progressing Problem: Urinary Elimination: Goal: Signs and symptoms of infection will decrease Outcome: Progressing Goal: Ability to reestablish a normal urinary elimination pattern will improve Outcome: Progressing Goal: Complications related to the disease process, condition or treatment will be avoided or minimized Outcome: Progressing Problem: Respiratory: Goal: Will maintain a patent airway Outcome: Progressing * Plan of Care - Jane Urena RN - 02/11/2022 4:47 AM CDT Goals: Clinical Goals for the Shift: pain control, stable VS, comfort, sleep Problem: Lack of Knowledge: Goal: Ability to [...] Goal: Pain level will decrease Outcome: Progressing Problem: Health Behavior: Goal: Understanding of discharge needs will improve Outcome: Progressing Problem: Activity: Goal: Risk for activity intolerance will decrease Outcome: Progressing Problem: Lack of Knowledge: Goal: Knowledge of disease or condition will improve Outcome: Progressing Goal: Knowledge of safety precautions will improve Outcome: Progressing Goal: Knowledge of the prescribed therapeutic regimen will improve Outcome: Progressing Problem: Infection Risk: Goal: Will remain free from infection Outcome: Progressing Problem: Safety: Goal: Ability to remain free from injury will improve Outcome: Progressing Goal: Will remain free from falls Outcome: Progressing Problem: Urinary Elimination: Goal: Signs and symptoms of infection will decrease Outcome: Progressing Goal: Ability to reestablish a normal urinary elimination pattern will improve Outcome: Progressing Goal: Complications related to the disease process, condition or treatment will be avoided or minimized Outcome: Progressing Problem: Respiratory: Goal: Will maintain a patent airway Outcome: Progressing Summary: Assessment of patient???s baseline is established at the beginning of the shift in flowsheets. Patient reassessed per order, unexpected findings and/or deviations from baseline are captured in flowsheets. Patient had uneventful night, has slept most of shift with minimal interruptions. Orders and/or nursing care completed as indicated. Patient monitored for response to interventions and treatments as documented in flowsheets. Medicated for pain this shift, patient rates pain 3-5 with partial relief after pain medication. Remains in bed sleeping with CPAP in place. Frequent safety checks and comfort rounds provided. * Plan of Care - Santiago Shine RRT - 02/10/2022 9:02 PM CDT Problem: Respiratory: Goal: Will maintain a patent airway Outcome: Progressing * Plan of Care - Jo Holley RRT - 02/10/2022 3:00 PM CDT Problem: Respiratory: Goal: Will maintain a patent airway Outcome: Adequate for Discharge Jo Holley RRT * Plan of Tyrese - Ricarda Albert RN - 02/10/2022 10:15 AM CDT Goals: Clinical goals for shift: Control pain, maintain stable VS, maintain pt comfort and safety Problem: Lack of Knowledge: Goal: Ability to [...] Goal: Pain level will decrease Outcome: Progressing Problem: Health Behavior: Goal: Understanding of discharge needs will improve Outcome: Progressing Problem: Activity: Goal: Risk for activity intolerance will decrease Outcome: Progressing Problem: Lack of Knowledge: Goal: Knowledge of disease or condition will improve Outcome: Progressing Goal: Knowledge of safety precautions will improve Outcome: Progressing Goal: Knowledge of the prescribed therapeutic regimen will improve Outcome: Progressing Problem: Infection Risk: Goal: Will remain free from infection Outcome: Progressing Problem: Safety: Goal: Ability to remain free from injury will improve Outcome: Progressing Goal: Will remain free from falls Outcome: Progressing Problem: Urinary Elimination: Goal: Signs and symptoms of infection will decrease Outcome: Progressing Goal: Ability to reestablish a normal urinary elimination pattern will improve Outcome: Progressing Goal: Complications related to the disease process, condition or treatment will be avoided or minimized Outcome: Progressing Problem: Respiratory: Goal: Will maintain a patent airway Outcome: Progressing * Plan of Jane Mendoza RN - 02/10/2022 4:53 AM CDT Goals: Problem: Lack of Knowledge: Goal: Ability to [...] Goal: Pain level will decrease Outcome: Progressing Problem: Health Behavior: Goal: Understanding of discharge needs will improve Outcome: Progressing Problem: Activity: Goal: Risk for activity intolerance will decrease Outcome: Progressing Problem: Lack of Knowledge: Goal: Knowledge of disease or condition will improve Outcome: Progressing Goal: Knowledge of safety precautions will improve Outcome: Progressing Goal: Knowledge of the prescribed therapeutic regimen will improve Outcome: Progressing Problem: Infection Risk: Goal: Will remain free from infection Outcome: Progressing Problem: Safety: Goal: Ability to remain free from injury will improve Outcome: Progressing Goal: Will remain free from falls Outcome: Progressing Problem: Urinary Elimination: Goal: Signs and symptoms of infection will decrease Outcome: Progressing Goal: Ability to reestablish a normal urinary elimination pattern will improve Outcome: Progressing Goal: Complications related to the disease process, condition or treatment will be avoided or minimized Outcome: Progressing Summary: Assessment of patient???s baseline was established upon admission. Patient reassessed per order, unexpected findings and/or deviations from baseline are captured in flowsheets. Patient slept most of shift with minimal interruptions. Orders and/or nursing care completed as indicated. Patient monitored for response to interventions and treatments as documented in flowsheets. Remains in bed, VSS, no signs of apparent distress noted. Frequent safety checks and comfort rounds provided. documented in this encounter Plan of Treatment Not on file documented as of this encounter Procedures Procedure Name Priority Date/Time Associated Diagnosis Comments POCT GLUCOSE DEVICE Routine 02/17/2022 1 1:09 AM CDT POCT GLUCOSE DEVICE Routine 02/17/2022 7 :10 AM CDT EGFR Routine 02/17/2022 5:02 AM CDT DIFFERENTIAL AUTO Routine 02/17/2022 5:0 2 AM CDT CBC WITH AUTO DIFFERENTIAL Routine 02/17/2022 5:02 AM CDT BASIC METABOLIC PANEL Routine 02/17/2022 5:02 AM CDT POCT GLUCOSE DEVICE Routine 02/16/2022 7 :39 PM CDT POCT GLUCOSE DEVICE Routine 02/16/2022 4 :47 PM CDT POCT GLUCOSE DEVICE Routine 02/16/2022 1 2:24 PM CDT ECG 12-LEAD Routine 02/16/2022 9:00 AM CDT POCT GLUCOSE DEVICE Routine 02/16/2022 8 :59 AM CDT POCT GLUCOSE DEVICE Routine 02/16/2022 8 :09 AM CDT EGFR Routine 02/16/2022 4:16 AM CDT DIFFERENTIAL AUTO Routine 02/16/2022 4:1 6 AM CDT CBC WITH AUTO DIFFERENTIAL Routine 02/16/2022 4:16 AM CDT BASIC METABOLIC PANEL Routine 02/16/2022 4:16 AM CDT POCT GLUCOSE DEVICE Routine 02/15/2022 8:19 PM CDT POCT GLUCOSE DEVICE Routine 02/15/2022 4 :34 PM CDT POCT GLUCOSE DEVICE Routine 02/15/2022 1 0:54 AM CDT POCT GLUCOSE DEVICE Routine 02/15/2022 8 :01 AM CDT EGFR Routine 02/15/2022 3:08 AM CDT DIFFERENTIAL AUTO Routine 02/15/2022 3:0 8 AM CDT CBC WITH AUTO DIFFERENTIAL Routine 02/15/2022 3:08 AM CDT BASIC METABOLIC PANEL Routine 02/15/2022 3:08 AM CDT POCT GLUCOSE DEVICE Routine 02/14/2022 8 :51 PM CDT POCT GLUCOSE DEVICE Routine 02/14/2022 4 :40 PM CDT EGFR STAT 02/14/2022 12:24 PM CDT DIFFERENTIAL AUTO STAT 02/14/2022 12: 24 PM CDT CBC WITH AUTO DIFFERENTIAL STAT 02/14/2022 12:24 PM CDT BASIC METABOLIC PANEL STAT 02/14/2022 12:24 PM CDT POCT GLUCOSE DEVICE Routine 02/14/2022 1 1:16 AM CDT POCT GLUCOSE DEVICE Routine 02/14/2022 7 :56 AM CDT POCT GLUCOSE DEVICE Routine 02/13/2022 8 :04 PM CDT POCT GLUCOSE DEVICE Routine 02/13/2022 5 :19 PM CDT POCT GLUCOSE DEVICE Routine 02/13/2022 1 1:48 AM CDT POCT GLUCOSE DEVICE Routine 02/13/2022 7 :55 AM CDT EGFR Routine 02/13/2022 7:25 AM CDT DIFFERENTIAL AUTO Routine 02/13/2022 7:2 5 AM CDT CBC WITH AUTO DIFFERENTIAL Routine 02/13/2022 7:25 AM CDT BASIC METABOLIC PANEL Routine 02/13/2022 7:25 AM CDT POCT GLUCOSE DEVICE Routine 02/12/2022 8 :38 PM CDT POCT GLUCOSE DEVICE Routine 02/12/2022 4 :43 PM CDT POCT GLUCOSE DEVICE Routine 02/12/2022 1 2:21 PM CDT POCT GLUCOSE DEVICE Routine 02/12/2022 7 :17 AM CDT EGFR Routine 02/12/2022 5:24 AM CDT DIFFERENTIAL AUTO Routine 02/12/2022 5:2 4 AM CDT CBC WITH AUTO DIFFERENTIAL Routine 02/12/2022 5:24 AM CDT BASIC METABOLIC PANEL Routine 02/12/2022 5:24 AM CDT POCT GLUCOSE DEVICE Routine 02/11/2022 7 :58 PM CDT POCT GLUCOSE DEVICE Routine 02/11/2022 3 :59 PM CDT COVID-19 CORONAVIRUS RNA Routine 02/11/2022 12:16 PM CDT POCT GLUCOSE DEVICE Routine 02/11/2022 1 1:48 AM CDT POCT GLUCOSE DEVICE Routine 02/11/2022 7 :52 AM CDT EGFR Routine 02/11/2022 2:55 AM CDT DIFFERENTIAL AUTO Routine 02/11/2022 2:5 5 AM CDT CBC WITH AUTO DIFFERENTIAL Routine 02/11/2022 2:55 AM CDT HEMOGLOBIN A1C Routine 02/11/2022 2:55 AM CDT COMPREHENSIVE METABOLIC PANEL Routine 02/11/2022 2:55 AM CDT POCT GLUCOSE DEVICE Routine 02/10/2022 7 :49 PM CDT POCT GLUCOSE DEVICE Routine 02/10/2022 5 :18 PM CDT POCT GLUCOSE DEVICE Routine 02/10/2022 1 1:21 AM CDT POCT GLUCOSE DEVICE Routine 02/10/2022 8 :21 AM CDT EGFR Routine 02/10/2022 6:12 AM CDT DIFFERENTIAL AUTO Routine 02/10/2022 6:1 2 AM CDT CBC WITH AUTO DIFFERENTIAL Routine 02/10/2022 6:12 AM CDT BASIC METABOLIC PANEL Routine 02/10/2022 6:12 AM CDT POCT GLUCOSE DEVICE Routine 02/09/2022 1 0:[address] CHEST ABDOMEN PELVIS W CONTRAST ED 02/09/2022 5:33 PM CDT BLOOD CULTURE STAT 02/09/2022 5:09 PM CDT BLOOD CULTURE STAT 02/09/2022 4:55 PM CDT APTT STAT 02/09/2022 4:55 PM CDT PROTIME-INR Routine 02/09/2022 4:55 PM CDT INFLUENZA A/B, RSV, AND COVID-19 PCR Routine 02/09/2022 4:46 PM CDT TROPONIN T HIGH-SENSITIVITY 2-HOUR Timed 02/09/2022 3:37 PM CDT URINALYSIS AND REFLEX TO MICROSCOPIC AND CULTURE STAT 02/09/2022 1:28 PM CDT URINALYSIS, MICROSCOPIC ONLY STAT 02/09/2022 1:28 PM CDT URINE CULTURE STAT 02/09/2022 1:28 PM CDT ECG 12-LEAD STAT 02/09/2022 1:19 PM CDT TROPONIN T HIGH-SENSITIVITY SERIES (BASELINE, 2HR, 4HR, 6HR) STAT 02/09/2022 1:12 PM CDT SEPSIS LACTATE WITH REFLEX STAT 02/09/2022 1:12 PM CDT EGFR STAT 02/09/2022 1:12 PM CDT DIFFERENTIAL AUTO STAT 02/09/2022 1:1 2 PM CDT PRO B-TYPE NATRIURETIC PEPTIDE STAT 02/09/2022 1:12 PM CDT CBC WITH AUTO DIFFERENTIAL STAT 02/09/2022 1:12 PM CDT COMPREHENSIVE METABOLIC PANEL STAT 02/09/2022 1:12 PM CDT documented in this encounter Results * POCT glucose (02/17/2022 11:09 AM CDT) [facility] Signature Glucose, POC 120 70 - 199 mg/dL MARY JANE PHAM Comment:Testing performed by : [facility], [address] [place] [address]., [id number] Blood 02/17/2022 11:0 9 AM CDT 02/17/2022 11:09 AM CDT Antoinette Reed MD LAB POCT ORDERABLES - DEVICE Final Result MARY JANE PHAM [id number] [facility] Department [place] [address] * POCT glucose (02/17/2022 7:10 AM CDT) [facility] Glucose, POC 128 70 - 199 mg/dL MARY JANE Comment:Testing performed by : [facility], [address] [place] [address]., [id number] Blood 02/17/2022 7:10 AM CDT 02/17/2022 7:10 AM CDT Antoinette Reed MD LAB POCT ORDERABLES - DEVICE Final Result MARY JANE [address] [facility] Department [place] [address] * eGFR (02/17/2022 5:02 AM CDT) [facility] eGFR 104 mL/min/1. 73 m2 MARY JANE PHAM Comment: [...] was last reviewed 2021. Testing performed by: [facility], [address] [place] [address]., [id number] Blood 02/17/2022 5:02 AM CDT 02/17/2022 5:33 AM CDT us Reynaldoeleni HawkinsKathifatou ACEVEDO LAB BLOOD ORDERABLES Final Resul t MARY JANE [address] [facility] Department [place] [address] * (ABNORMAL) Differential, auto (02/17/2022 5:02 AM CDT) Neutrophil abs 6.8(H) 1.7 - 6.5 K/cumm MARY JANE Comment:Testing performed by : [address] [address] Imm gran abs 0.0 0.0 - 0.1 K/cumm MARY JANE Comment:Testing performed by : [address] [address] Lymphocyte abs 2.6 0.8 - 3.3 K/cumm MARY JANE Comment:Testing performed by : [address] [address] Monocyte abs 0.7 0.2 - 0.8 K/cumm MARY JANE Comment:Testing performed by : [address] [address] Eosinophil abs 0.2 0.0 - 0.5 K/cumm MARY JANE Comment:Testing performed by : [address] [address] Basophil abs 0.0 0.0 - 0.1 K/cumm MARY JANE Comment:Testing performed by : [address] [address] Neutrophil pct 65.4 % MARY JANE Comment: Interpretive Data Percent cell count reference ranges are not reported, since discordance with absolute values may lead to misinterpretation of CBC data. Current Interpretive Data was last revised on 2017. Testing performed by: [address] [address] Imm gran pct 0.4 % MARY JANE Comment: Interpretive Data Percent cell count reference ranges are not reported, since discordance with absolute values may lead to misinterpretation of CBC data. Current Interpretive Data was last revised on 2017. Testing performed by: [address] [address] Lymphocyte pct 25.4 % MARY JANE Comment: Interpretive Data Percent cell count reference ranges are not reported, since discordance with absolute values may lead to misinterpretation of CBC data. Current Interpretive Data was last revised on 2017. Testing performed by: [address] [address] Monocyte pct 6.7 % MARY JANE Comment: Interpretive Data Percent cell count reference ranges are not reported, since discordance with absolute values may lead to misinterpretation of CBC data. Current Interpretive Data was last revised on 2017. Testing performed by: [address] [address] Eosinophil pct 1.8 % MARY JANE Comment: Interpretive Data Percent cell count reference ranges are not reported, since discordance with absolute values may lead to misinterpretation of CBC data. Current Interpretive Data was last revised on 2017. Testing performed by: [address] [address] Basophil pct 0.3 % MARY JANE Comment: Interpretive Data Percent cell count reference ranges are not reported, since discordance with absolute values may lead to misinterpretation of CBC data. Current Interpretive Data was last revised on 2017. Testing performed by: [address] [address] Blood 02/17/2022 5:02 AM CDT 02/17/2022 5:33 AM CDT us Blaze Armenta NP LAB BLOOD ORDERABLES Final Resul t MARY JANE PHAM [id number] [facility] Department [place] [address] * (ABNORMAL) CBC with auto differential (02/17/2022 5:02 AM CDT) WBC 10.4(H) 3.8 - 9.9 K/cumm MARY JANE PHAM Comment:Testing performed by : [address], [address] Hgb 12.1 11.9 - 15.5 g/dL MARY JANE Comment:Testing performed by : [address], [address] Hct 39.0 35.6 - 45.5 % MARY JANE Comment:Testing performed by : [address], [address] Plt 258 150 - 400 K/cumm MARY JANE Comment:Testing performed by : [address], [address] MPV 9.6 9.1 - 12.3 fL MARY JANE Comment:Testing performed by : [address], [address] RBC 4.23 3.90 - 5.20 M/cumm MARY JANE Comment:Testing performed by : [address], [address] MCV 92.2 81.3 - 96.4 fL MARY JANE Comment:Testing performed by : [address], [address] MCH 28.6 27.1 - 33.3 pg MARY JANE Comment:Testing performed by : [address], [address] MCHC 31.0(L) 32.3 - 35.7 g/dL MARY JANE Comment:Testing performed by : [address], [address] RDW CV 14.2 11.1 - 14.9 % MARY JANE Comment:Testing performed by : [address], [address] RDW SD 48.0 35.7 - 48.1 fL MARY JANE Comment:Testing performed by : [address], [address] NRBC abs 0.00 0.00 - 0.01 K/cumm MARY JANE Comment:Testing performed by : [address], [address] Blood 02/17/2022 5:02 AM CDT 02/17/2022 5:33 AM CDT us Blaze Armenta NP LAB BLOOD ORDERABLES Final Resul t MARY JANE [address] [facility] Department [place] [address] * (ABNORMAL) Basic metabolic panel (02/17/2022 5:02 AM CDT) Pathologist [facility] [place] Sodium 136 135 - 145 mmol/L MARY JANE Comment:Testing performed by : [address] [address] Potassium, pl 4.3 3.3 - 4.9 mmol/L MARY JANE Comment:Testing performed by : [address] [address] Chloride 102 97 - 110 mmol/L MARY JANE Comment:Testing performed by : [address] [address] CO2 27 22 - 32 mmol/L MARY JANE Comment:Testing performed by : [address] [address] Anion gap 7 2 - 15 mmol/L MARY JANE Comment:Testing performed by : [address] [address] [address] BUN 16 8 - 25 mg/dL MARY JANE Comment:Testing performed by : [address] [address] Creatinine 0.50(L) 0.60 - 1.10 mg/dL MARY JANE Comment:Testing performed by : [address] [address] Glucose 139 70 - 199 mg/dL MARY JANE Comment: [...] was last revised 2017. Testing performed by: [address] [address] Calcium 9.2 8.5 - 10.3 mg/dL MARY JANE Comment:Testing performed by : [address] [address] Blood 02/17/2022 5:02 AM CDT 02/17/2022 5:33 AM CDT Blaze Armenta NP LAB BLOOD ORDERABLES Final Resul t Performing Organization Address [facility] Co de Phone Number [address] [place] [address] * POCT glucose (02/16/2022 7:39 PM CDT) Glucose, POC 154 70 - 199 mg/dL MARY JANE Comment:Testing performed by : [address] [address] Glucose comment 1 Use This Result MARY JANE Comment:Testing performed by : [address] [address] Blood 02/16/2022 7:39 PM CDT 02/16/2022 7:39 PM CDT us Antoinette Reed MD LAB POCT ORDERABLES - DEVICE Final Result Performing Organization Address [facility] Co de Phone Number [address] [place] [address] * POCT glucose (02/16/2022 4:47 PM CDT) Glucose, POC 135 70 - 199 mg/dL MARY JANE Comment:Testing performed by : [address] [address] Blood 02/16/2022 4:47 PM CDT 02/16/2022 4:47 PM CDT Antoinette Reed MD LAB POCT ORDERABLES - DEVICE Final Result Performing Organization Address [facility] Co de Phone Number [facility] [address] [place] [address] * POCT glucose (02/16/2022 12:24 PM CDT) Pathologist [facility] [place] Glucose, POC 120 70 - 199 mg/dL [facility] Comment:Testing performed by : [facility], [address] [place] [address]., [address] Blood 02/16/2022 12:2 4 PM CDT 02/16/2022 12:24 PM CDT Antoinette Reed MD LAB POCT ORDERABLES - DEVICE Final Result Performing Organization Address [facility] Co de Phone Number [place] [address] [facility] [place] [address] * ECG 12 lead (02/16/2022 9:00 AM CDT) [facility] Signature Ventricular Rate EKG/Min 97 BPM [facility] Atrial Rate 97 BPM [facility] MO-Interval (MSEC) 136 ms [facility] QRS-Interval (MSEC) 80 ms [facility] QT-Interval (MSEC) 362 ms [facility] QTc 459 ms [facility] P Mallie 6 degrees [facility] R Mallie 11 degrees [facility] T Mallie 41 degrees [facility] Diagnosis Normal sinus rhythm Normal ECG When compared with ECG of 09-FEB-2022 13:19, Nonspecific T wave abnormality no longer evident in Lateral leads [facility] 02/16/2022 9:00 AM CDT 02/17/2022 12:49 PM CDT us Genaro Coy MD ECG ORDERABLES Final Result Performing Organization Address City/[facility]/ZIP Co de Phone Number [facility] * (ABNORMAL) POCT glucose (02/16/2022 8:59 AM CDT) Glucose, POC 240(H) 70 - 199 mg/dL [facility] Comment:Testing performed by : [address] [address] Blood 02/16/2022 8:59 AM CDT 02/16/2022 8:59 AM CDT Antoinette Reed MD LAB POCT ORDERABLES - DEVICE Final Result Performing Organization Address [facility] de Phone Number [address] [place] [address] * POCT glucose (02/16/2022 8:09 AM CDT) [facility] Glucose, POC 135 70 - 199 mg/dL [facility] Comment:Testing performed by : [address] [address] Blood 02/16/2022 8:09 AM CDT 02/16/2022 8:09 AM CDT Antoinette Reed MD LAB POCT ORDERABLES - DEVICE Final Result Performing Organization Address [facility] de Phone Number [address] [address] * eGFR (02/16/2022 4:16 AM CDT) Pathologist [facility] [place] eGFR 100 mL/min/1. 73 m2 [facility] Comment: Interpretive Data Reference Interval [...] was last reviewed 2021. Testing performed by: [address] [address] Blood 02/16/2022 4:16 AM CDT 02/16/2022 4:58 AM CDT us Blaze Armenta NP LAB BLOOD ORDERABLES Final Resul t [place] [address] [facility] Department of Laboratories [place], [place] [id number] * (ABNORMAL) Differential, auto (02/16/2022 4:16 AM CDT) Neutrophil abs 8.6(H) 1.7 - 6.5 K/cumm MARY JANE Comment:Testing performed by : [address] [address] Imm gran abs 0.1 0.0 - 0.1 K/cumm MARY JANE Comment:Testing performed by : [address] [address] Lymphocyte abs 2.7 0.8 - 3.3 K/cumm MARY JANE Comment:Testing performed by : [address] [address] Monocyte abs 0.8 0.2 - 0.8 K/cumm MARY JANE Comment:Testing performed by : [address] [address] Eosinophil abs 0.2 0.0 - 0.5 K/cumm [facility] Comment:Testing performed by : [address] [address] Basophil abs 0.0 0.0 - 0.1 K/cumm [facility] Comment:Testing performed by : [address] [address] Neutrophil pct 69.2 % [facility] Comment: Interpretive Data Percent cell count reference ranges are not reported, since discordance with absolute values may lead to misinterpretation of CBC data. Current Interpretive Data was last revised on 2017. Testing performed by: [address] [address] Imm gran pct 0.5 % [facility] Comment: Interpretive Data Percent cell count reference ranges are not reported, since discordance with absolute values may lead to misinterpretation of CBC data. Current Interpretive Data was last revised on 2017. Testing performed by: [address] [address] Lymphocyte pct 21.8 % [facility] Comment: Interpretive Data Percent cell count reference ranges are not reported, since discordance with absolute values may lead to misinterpretation of CBC data. Current Interpretive Data was last revised on 2017. Testing performed by: [address] [address] Monocyte pct 6.8 % [facility] Comment: Interpretive Data Percent cell count reference ranges are not reported, since discordance with absolute values may lead to misinterpretation of CBC data. Current Interpretive Data was last revised on 2017. Testing performed by: [address] [address] Eosinophil pct 1.4 % [facility] Comment: Interpretive Data Percent cell count reference ranges are not reported, since discordance with absolute values may lead to misinterpretation of CBC data. Current Interpretive Data was last revised on 2017. Testing performed by: [address] [address] Basophil pct 0.3 % [facility] Comment: Interpretive Data Percent cell count reference ranges are not reported, since discordance with absolute values may lead to misinterpretation of CBC data. Current Interpretive Data was last revised on 2017. Testing performed by: [address] [address] Blood 02/16/2022 4:16 AM CDT 02/16/2022 5:01 AM CDT us Blaze Armenta NP LAB BLOOD ORDERABLES Final Resul t MARY JANE [address] [facility] Department [place] [address] * (ABNORMAL) CBC with auto differential (02/16/2022 4:16 AM CDT) WBC 12.4(H) 3.8 - 9.9 K/cumm MARY JANE PHAM Comment:Testing performed by : [address] [address] Hgb 11.7(L) 11.9 - 15.5 g/dL MARY JANE Comment:Testing performed by : [address] [address] Hct 36.9 35.6 - 45.5 % MARY JANE Comment:Testing performed by : [address] [address] Plt 258 150 - 400 K/cumm MARY JANE Comment:Testing performed by : [address] [address] MPV 9.8 9.1 - 12.3 fL MARY JANE Comment:Testing performed by : [address] [address] RBC 4.03 3.90 - 5.20 M/cumm MARY JANE Comment:Testing performed by : [address] [address] MCV 91.6 81.3 - 96.4 fL MARY JANE Comment:Testing performed by : [address] [address] MCH 29.0 27.1 - 33.3 pg MARY JANE PHAM Comment:Testing performed by : [address] [address] MCHC 31.7(L) 32.3 - 35.7 g/dL MARY JANE PHAM Comment:Testing performed by : [address] [address] RDW CV 14.2 11.1 - 14.9 % MARY JANE PHAM Comment:Testing performed by : [address] [address] RDW SD 47.7 35.7 - 48.1 fL MARY JANE PHAM Comment:Testing performed by : [address] [address] NRBC abs 0.00 0.00 - 0.01 K/cumm MARY JANE PHAM Comment:Testing performed by : [address] [address] Blood 02/16/2022 4:16 AM CDT 02/16/2022 5:01 AM CDT Blzae Armenta NP LAB BLOOD ORDERABLES Final Resul t MARY JANE [address] [facility] Department [place] [address] * Basic metabolic panel (02/16/2022 4:16 AM CDT) Sodium 139 135 - 145 mmol/L MARY JANE PHAM Comment:Testing performed by : [address] [address] Potassium, pl 4.2 3.3 - 4.9 mmol/L MARY JANE PHAM Comment:Testing performed by : [address] [address] Chloride 105 97 - 110 mmol/L MARY JANE PHAM Comment:Testing performed by : [address] [address] CO2 27 22 - 32 mmol/L MARY JANE PHAM Comment:Testing performed by : [address] [address] Anion gap 7 2 - 15 mmol/L MARY JANE PHAM Comment:Testing performed by : [address] [address] BUN 18 8 - 25 mg/dL MARY JANE PHAM Comment:Testing performed by : [address] [address] Creatinine 0.60 0.60 - 1.10 mg/dL MARY JANE Comment:Testing performed by : [address] [address] Glucose 133 70 - 199 mg/dL MARY JANE Comment: [...] was last revised 2017. Testing performed by: [address] [address] Calcium 9.2 8.5 - 10.3 mg/dL MARY JANE Comment:Testing performed by : [address] [address] Blood 02/16/2022 4:16 AM CDT 02/16/2022 4:58 AM CDT us Blaze Armenta NP LAB BLOOD ORDERABLES Final Resul t MARY JANE 6368 [facility] Department [place] [address] * POCT glucose (02/15/2022 8:19 PM CDT) Glucose, POC 134 70 - 199 mg/dL MARY JANE Comment:Testing performed by : [address] [address] Blood 02/15/2022 8:19 PM CDT 02/15/2022 8:19 PM CDT us Antoinette Reed MD LAB POCT ORDERABLES - DEVICE Final Result Performing Organization Address [facility] Co de Phone Number MARY JANE [address] [address] * POCT glucose (02/15/2022 4:34 PM CDT) Glucose, POC 157 70 - 199 mg/dL MARY JANE PHAM Comment:Testing performed by : [address] [address] Glucose comment 1 Use This Result MARY JANE Comment:Testing performed by : [address] [address] Blood 02/15/2022 4:34 PM CDT 02/15/2022 4:34 PM CDT Antionette Reed MD LAB POCT ORDERABLES - DEVICE Final Result Performing Organization Address [facility] de Phone Number MARY JANE [address] [address] * POCT glucose (02/15/2022 10:54 AM CDT) Glucose, POC 129 70 - 199 mg/dL MARY JANE Comment:Testing performed by : [address] [address] Blood 02/15/2022 10:5 4 AM CDT 02/15/2022 10:54 AM CDT Antoinette Reed MD LAB POCT ORDERABLES - DEVICE Final Result Performing Organization Address [facility] Co de Phone Number MARY JANE [address] [address] * POCT glucose (02/15/2022 8:01 AM CDT) Glucose, POC 130 70 - 199 mg/dL MARY JANE Comment:Testing performed by : [address] [address] Glucose comment 1 Use This Result MARY JANE PHAM Comment:Testing performed by : [facility], [address] [place] [address]., [address] Blood 02/15/2022 8:01 AM CDT 02/15/2022 8:01 AM CDT Antoinette Reed MD LAB POCT ORDERABLES - DEVICE Final Result MARY JANE 9[address] [facility] Department [place] [address] * eGFR (02/15/2022 3:08 AM CDT) eGFR 104 mL/min/1. 73 m2 MARY JANE PHAM Comment: [...] was last reviewed 2021. Testing performed by: [facility], [address] [place] [address]., [address] Blood 02/15/2022 3:08 AM CDT 02/15/2022 4:23 AM CDT us Reynaldoeleni Kathi ACEVEDO LAB BLOOD ORDERABLES Final Resul t MARY JANE 15[address] [facility] Department [place] [address] * (ABNORMAL) Differential, auto (02/15/2022 3:08 AM CDT) Neutrophil abs 10.6(H) 1.7 - 6.5 K/cumm MARY JANE Comment:Testing performed by : [address] [address] Imm gran abs 0.1 0.0 - 0.1 K/cumm MARY JANE Comment:Testing performed by : [address] [address] Lymphocyte abs 2.8 0.8 - 3.3 K/cumm MARY JANE Comment:Testing performed by : [address] [address] Monocyte abs 0.9(H) 0.2 - 0.8 K/cumm MARY JANE Comment:Testing performed by : [address] [address] Eosinophil abs 0.2 0.0 - 0.5 K/cumm MARY JANE Comment:Testing performed by : [address] [address] Basophil abs 0.0 0.0 - 0.1 K/cumm MARY JANE Comment:Testing performed by : [address] [address] Neutrophil pct 72.8 % MARY JANE Comment: Interpretive Data Percent cell count reference ranges are not reported, since discordance with absolute values may lead to misinterpretation of CBC data. Current Interpretive Data was last revised on 2017. Testing performed by: [address] [address] Imm gran pct 0.4 % MARY JANE Comment: Interpretive Data Percent cell count reference ranges are not reported, since discordance with absolute values may lead to misinterpretation of CBC data. Current Interpretive Data was last revised on 2017. Testing performed by: [address] [address] Lymphocyte pct 19.6 % MARY JANE Comment: Interpretive Data Percent cell count reference ranges are not reported, since discordance with absolute values may lead to misinterpretation of CBC data. Current Interpretive Data was last revised on 2017. Testing performed by: [address] [address] Monocyte pct 5.9 % MARY JANE Comment: Interpretive Data Percent cell count reference ranges are not reported, since discordance with absolute values may lead to misinterpretation of CBC data. Current Interpretive Data was last revised on 2017. Testing performed by: [address] [address] Eosinophil pct 1.1 % MARY JANE Comment: Interpretive Data Percent cell count reference ranges are not reported, since discordance with absolute values may lead to misinterpretation of CBC data. Current Interpretive Data was last revised on 2017. Testing performed by: [address] [address] Basophil pct 0.2 % MARY JANE Comment: Interpretive Data Percent cell count reference ranges are not reported, since discordance with absolute values may lead to misinterpretation of CBC data. Current Interpretive Data was last revised on 2017. Testing performed by: [address] [address] Blood 02/15/2022 3:08 AM CDT 02/15/2022 4:24 AM CDT us Blaze Armenta NP LAB BLOOD ORDERABLES Final Resul t MARY JANE 9607 [facility] Department [place] [address] * (ABNORMAL) CBC with auto differential (02/15/2022 3:08 AM CDT) WBC 14.5(H) 3.8 - 9.9 K/cumm MARY JANE Comment:Testing performed by : [address] [address] Hgb 12.3 11.9 - 15.5 g/dL MARY JANE Comment:Testing performed by : [address] [address] Hct 38.9 35.6 - 45.5 % MARY JANE Comment:Testing performed by : [address] [address] Plt 280 150 - 400 K/cumm MARY JANE Comment:Testing performed by : [address], [address] MPV 9.9 9.1 - 12.3 fL MARY JANE Comment:Testing performed by : [address], [address] RBC 4.21 3.90 - 5.20 M/cumm MARY JANE Comment:Testing performed by : [address], [address] MCV 92.4 81.3 - 96.4 fL MARY JANE Comment:Testing performed by : [address] [address] MCH 29.2 27.1 - 33.3 pg MARY JANE Comment:Testing performed by : [address] [address] MCHC 31.6(L) 32.3 - 35.7 g/dL MARY JANE Comment:Testing performed by : [address], [address] RDW CV 14.3 11.1 - 14.9 % MARY JANE Comment:Testing performed by : [address] [address] RDW SD 48.3(H) 35.7 - 48.1 fL MARY JANE Comment:Testing performed by : [address], [address] NRBC abs 0.00 0.00 - 0.01 K/cumm MARY JANE Comment:Testing performed by : [address] [address] Blood 02/15/2022 3:08 AM CDT 02/15/2022 4:24 AM CDT us Blaze Armenta NP LAB BLOOD ORDERABLES Final Resul t MARY JANE 3177 [facility] Department [place] [address] * (ABNORMAL) Basic metabolic panel (02/15/2022 3:08 AM CDT) Sodium 137 135 - 145 mmol/L MARY JANE Comment:Testing performed by : [address] [address] Potassium, pl 4.4 3.3 - 4.9 mmol/L MARY JANE Comment:Testing performed by : [address] [address] Chloride 102 97 - 110 mmol/L MARY JANE Comment:Testing performed by : [address] [address] CO2 23 22 - 32 mmol/L MARY JANE Comment:Testing performed by : [address] [address] Anion gap 12 2 - 15 mmol/L MARY JANE Comment:Testing performed by : [address] [address] BUN 17 8 - 25 mg/dL MARY JANE Comment:Testing performed by : [address] [address] Creatinine 0.50(L) 0.60 - 1.10 mg/dL MARY JANE Comment:Testing performed by : [address] [address] Glucose 142 70 - 199 mg/dL MARY JANE Comment: [...] was last revised 2017. Testing performed by: [address] [address] Calcium 9.2 8.5 - 10.3 mg/dL MARY JANE PHAM Comment:Testing performed by : [address] [address] Blood 02/15/2022 3:08 AM CDT 02/15/2022 4:23 AM CDT Blaze Armenta NP LAB BLOOD ORDERABLES Final Resul t Performing Organization Address City/[facility]/ZIP Co de Phone Number [address] [place] [address] * POCT glucose (02/14/2022 8:51 PM CDT) Glucose, POC 168 70 - 199 mg/dL MARY JANE Comment:Testing performed by : [address] [address] Blood 02/14/2022 8:51 PM CDT 02/14/2022 8:51 PM CDT Neha Solo MD LAB POCT ORDERABLES - NILESH CE Final Result Performing Organization Address [facility] Co de Phone Number [address] [address] * POCT glucose (02/14/2022 4:40 PM CDT) Glucose, POC 160 70 - 199 mg/dL MARY JANE Comment:Testing performed by : [address] [address] Glucose comment 1 Use This Result MARY JANE PHAM Comment:Testing performed by : [address] [address] Blood 02/14/2022 4:40 PM CDT 02/14/2022 4:40 PM CDT us Neha Solo MD LAB POCT ORDERABLES - NILESH CE Final Result Performing Organization Address [facility] Co de Phone Number MARY JANE 0762 [facility] [place], [place] [id number] * eGFR (02/14/2022 12:24 PM CDT) eGFR 100 mL/min/1. 73 m2 [facility] Comment: Interpretive Data Reference Interval Normal ?>/= [...] was last reviewed 2021. Testing performed by: [facility], [address] [place] [address]., [address] Blood 02/14/2022 12:2 4 PM CDT 02/14/2022 12:39 PM CDT Neha Solo MD LAB BLOOD ORDERABLES Final Result Performing Organization Address [facility] Co de Phone Number MARY JANE 2[address] [facility] [place] [address] * (ABNORMAL) Differential, auto (02/14/2022 12:24 PM CDT) Neutrophil abs 14.1(H) 1.7 - 6.5 K/cumm MARY JANE Comment:Testing performed by : [address] [address] Imm gran abs 0.1 0.0 - 0.1 K/cumm MARY JANE Comment:Testing performed by : [address] [address] Lymphocyte abs 2.7 0.8 - 3.3 K/cumm MARY JANE Comment:Testing performed by : [address] [address] Monocyte abs 1.2(H) 0.2 - 0.8 K/cumm MARY JANE Comment:Testing performed by : [address] [address] Eosinophil abs 0.2 0.0 - 0.5 K/cumm MARY JANE Comment:Testing performed by : [address] [address] Basophil abs 0.1 0.0 - 0.1 K/cumm MARY JANE Comment:Testing performed by : [address] [address] Neutrophil pct 77.3 % MARY JANE Comment: Interpretive Data Percent cell count reference ranges are not reported, since discordance with absolute values may lead to misinterpretation of CBC data. Current Interpretive Data was last revised on 2017. Testing performed by: [address] [address] Imm gran pct 0.5 % [facility] Comment: Interpretive Data Percent cell count reference ranges are not reported, since discordance with absolute values may lead to misinterpretation of CBC data. Current Interpretive Data was last revised on 2017. Testing performed by: [address] [address] Lymphocyte pct 14.8 % [facility] Comment: Interpretive Data Percent cell count reference ranges are not reported, since discordance with absolute values may lead to misinterpretation of CBC data. Current Interpretive Data was last revised on 2017. Testing performed by: [address] [address] Monocyte pct 6.3 % MARY JANE Comment: Interpretive Data Percent cell count reference ranges are not reported, since discordance with absolute values may lead to misinterpretation of CBC data. Current Interpretive Data was last revised on 2017. Testing performed by: [address] [address] Eosinophil pct 0.8 % MARY JANE Comment: Interpretive Data Percent cell count reference ranges are not reported, since discordance with absolute values may lead to misinterpretation of CBC data. Current Interpretive Data was last revised on 2017. Testing performed by: [address] [address] Basophil pct 0.3 % MARY JANE Comment: Interpretive Data Percent cell count reference ranges are not reported, since discordance with absolute values may lead to misinterpretation of CBC data. Current Interpretive Data was last revised on 2017. Testing performed by: [address] [address] Blood 02/14/2022 12:2 4 PM CDT 02/14/2022 12:39 PM CDT Neha Solo MD LAB BLOOD ORDERABLES Final Result [facility] [address] [facility] Department [place] [address] * Basic metabolic panel (02/14/2022 12:24 PM CDT) Sodium 137 135 - 145 mmol/L MARY JANE PHAM Comment:Testing performed by : [address] [address] Potassium, pl 4.2 3.3 - 4.9 mmol/L MARY JANE PHAM Comment:Testing performed by : [address] [address] Chloride 100 97 - 110 mmol/L MARY JANE Comment:Testing performed by : [address] [place]., [address] CO2 27 22 - 32 mmol/L MARY JANE Comment:Testing performed by : [address] [address] Anion gap 10 2 - 15 mmol/L MARY JANE Comment:Testing performed by : [address] [address] BUN 19 8 - 25 mg/dL MARY JANE Comment:Testing performed by : [address] [address] Creatinine 0.60 0.60 - 1.10 mg/dL MARY JANE Comment:Testing performed by : [address] [address] Glucose 111 70 - 199 mg/dL MARY JANE Comment: [...] was last revised 2017. Testing performed by: [address] [address] Calcium 9.7 8.5 - 10.3 mg/dL MARY JANE Comment:Testing performed by : [address] [address] Blood 02/14/2022 12:2 4 PM CDT 02/14/2022 12:39 PM CDT Neha Solo MD LAB BLOOD ORDERABLES Final Result MARY JANE PHAM 46[address] [facility] Department of Laboratories [place], [place] [id number] * (ABNORMAL) CBC with auto differential (02/14/2022 12:24 PM CDT) Pathologist [facility] [place] WBC 18.2(H) 3.8 - 9.9 K/cumm MARY JANE Comment:Testing performed by : [address], [address] Hgb 14.6 11.9 - 15.5 g/dL MARY JANE Comment:Testing performed by : [address], [address] Hct 46.3(H) 35.6 - 45.5 % MARY JANE Comment:Testing performed by : [address], [address] Plt 290 150 - 400 K/cumm MARY JANE Comment:Testing performed by : [address], [address] MPV 10.1 9.1 - 12.3 fL MARY JANE Comment:Testing performed by : [address], [address] RBC 5.03 3.90 - 5.20 M/cumm MARY JANE Comment:Testing performed by : [address], [address] MCV 92.0 81.3 - 96.4 fL MARY JANE Comment:Testing performed by : [address], [address] MCH 29.0 27.1 - 33.3 pg MARY JANE Comment:Testing performed by : [address], [address] MCHC 31.5(L) 32.3 - 35.7 g/dL MARY JANE Comment:Testing performed by : [address], [address] RDW CV 14.2 11.1 - 14.9 % MARY JANE Comment:Testing performed by : [address], [address] RDW SD 48.0 35.7 - 48.1 fL MARY JANE Comment:Testing performed by : [address], [address] NRBC abs 0.00 0.00 - 0.01 K/cumm MARY JANE Comment:Testing performed by : [address] [place] [address] Blood 02/14/2022 12:2 4 PM CDT 02/14/2022 12:39 PM CDT Result [facility] Neha Solo MD LAB BLOOD ORDERABLES Final Result Performing Organization Address [facility] Co de Phone Number MARY JANE 4500 [place] [address] * POCT glucose (02/14/2022 11:16 AM CDT) Glucose, POC 118 70 - 199 mg/dL MARY JANE Comment:Testing performed by : [address] [address] Glucose comment 1 Use This Result MARY JANE Comment:Testing performed by : [address] [address] Blood 02/14/2022 11:1 6 AM CDT 02/14/2022 11:16 AM CDT Result [facility] Neha Solo MD LAB POCT ORDERABLES - NILESH CE Final Result Performing Organization Address [facility] de Phone Number [place] [address] [place] [address] * POCT glucose (02/14/2022 7:56 AM CDT) Glucose, POC 133 70 - 199 mg/dL MARY JANE Comment:Testing performed by : [facility], [address] [place] [address]., [address] Glucose comment 1 Use This Result MARY JANE Comment:Testing performed by : [address] [address] Blood 02/14/2022 7:56 AM CDT 02/14/2022 7:56 AM CDT Result [facility] Neha Solo MD LAB POCT ORDERABLES - NILESH CE Final Result Performing Organization Address [facility] Co de Phone Number MARY JANE [address] [place] [address] * POCT glucose (02/13/2022 8:04 PM CDT) Glucose, POC 199 70 - 199 mg/dL MARY JANE Comment:Testing performed by : [address] [address] Blood 02/13/2022 8:04 PM CDT 02/13/2022 8:04 PM CDT Neha Solo MD LAB POCT ORDERABLES - NILESH CE Final Result Performing Organization Address [facility] Co de Phone Number MARY JANE [address] [place] [address] * POCT glucose (02/13/2022 5:19 PM CDT) Glucose, POC 100 70 - 199 mg/dL MARY JANE Comment:Testing performed by : [address] [address] Glucose comment 1 Use This Result MARY JANE Comment:Testing performed by : [address] [address] Blood 02/13/2022 5:19 PM CDT 02/13/2022 5:19 PM CDT Neha Solo MD LAB POCT ORDERABLES - NILESH CE Final Result Performing Organization Address [facility] Co de Phone Number [address] [address] * POCT glucose (02/13/2022 11:48 AM CDT) Glucose, POC 145 70 - 199 mg/dL MARY JANE Comment:Testing performed by : [address] [address] Glucose comment 1 Use This Result MARY JANE Comment:Testing performed by : [address] [address] Blood 02/13/2022 11:4 8 AM CDT 02/13/2022 11:48 AM CDT Neha Solo MD LAB POCT ORDERABLES - NILESH CE Final Result Performing Organization Address [facility] de Phone Number MARY JANE [address] [facility] [place] [address] * POCT glucose (02/13/2022 7:55 AM CDT) Pathologist [facility] Glucose, POC 135 70 - 199 mg/dL MARY JANE Comment:Testing performed by : [facility], [address] [place] [address]., [address] Glucose comment 1 Use This Result MARY JANE Comment:Testing performed by : [facility], [address] [place] [address]., [address] Blood 02/13/2022 7:55 AM CDT 02/13/2022 7:55 AM CDT Neha Solo MD LAB POCT ORDERABLES - NILESH CE Final Result Performing Organization Address [facility] de Phone Number [facility] [address] [place] [address] * eGFR (02/13/2022 7:25 AM CDT) Pathologist [facility] eGFR 100 mL/min/1. 73 m2 MARY JANE [...] was last reviewed 2021. Testing performed by: [address] [address] Blood 02/13/2022 7:25 AM CDT 02/13/2022 7:33 AM CDT us Blaze Armenta NP LAB BLOOD ORDERABLES Final Resul t MARY JANE [facility] Department of Laboratories [place], [place] [id number] * (ABNORMAL) Differential, auto (02/13/2022 7:25 AM CDT) Neutrophil abs 10.6(H) 1.7 - 6.5 K/cumm MARY JANE Comment:Testing performed by : [address] [address] Imm gran abs 0.1 0.0 - 0.1 K/cumm MARY JANE Comment:Testing performed by : [address] [address] Lymphocyte abs 2.9 0.8 - 3.3 K/cumm MARY JANE Comment:Testing performed by : [address] [address] Monocyte abs 1.1(H) 0.2 - 0.8 K/cumm MARY JANE Comment:Testing performed by : [address] [address] Eosinophil abs 0.2 0.0 - 0.5 K/cumm MARY JANE Comment:Testing performed by : [address] [address] Basophil abs 0.0 0.0 - 0.1 K/cumm MARY JANE Comment:Testing performed by : [address] [address] Neutrophil pct 71.0 % MARY JANE Comment: Interpretive Data Percent cell count reference ranges are not reported, since discordance with absolute values may lead to misinterpretation of CBC data. Current Interpretive Data was last revised on 2017. Testing performed by: [address] [address] Imm gran pct 0.5 % MAR YJANE Comment: Interpretive Data Percent cell count reference ranges are not reported, since discordance with absolute values may lead to misinterpretation of CBC data. Current Interpretive Data was last revised on 2017. Testing performed by: [address] [address] Lymphocyte pct 19.7 % MARY JANE Comment: Interpretive Data Percent cell count reference ranges are not reported, since discordance with absolute values may lead to misinterpretation of CBC data. Current Interpretive Data was last revised on 2017. Testing performed by: [address] [address] Monocyte pct 7.2 % MARY JANE Comment: Interpretive Data Percent cell count reference ranges are not reported, since discordance with absolute values may lead to misinterpretation of CBC data. Current Interpretive Data was last revised on 2017. Testing performed by: [address] [address] Eosinophil pct 1.3 % MARY JANE Comment: Interpretive Data Percent cell count reference ranges are not reported, since discordance with absolute values may lead to misinterpretation of CBC data. Current Interpretive Data was last revised on 2017. Testing performed by: [address] [address] Basophil pct 0.3 % MARY JANE Comment: Interpretive Data Percent cell count reference ranges are not reported, since discordance with absolute values may lead to misinterpretation of CBC data. Current Interpretive Data was last revised on 2017. Testing performed by: [address] [address] Blood 02/13/2022 7:25 AM CDT 02/13/2022 7:35 AM CDT us Blaze Armenta NP LAB BLOOD ORDERABLES Final Resul t MARY JANE [facility] Department [place] [address] * (ABNORMAL) CBC with auto differential (02/13/2022 7:25 AM CDT) WBC 14.9(H) 3.8 - 9.9 K/cumm MARY JANE PHAM Comment:Testing performed by : [address] [address] Hgb 13.5 11.9 - 15.5 g/dL MARY JANE PHAM Comment:Testing performed by : [address] [address] Hct 42.7 35.6 - 45.5 % MARY JANE PHAM Comment:Testing performed by : [address] [address] Plt 291 150 - 400 K/cumm MARY JANE Comment:Testing performed by : [address] [address] MPV 9.6 9.1 - 12.3 fL MARY JANE PHAM Comment:Testing performed by : [address] [address] RBC 4.67 3.90 - 5.20 M/cumm MARY JANE PHAM Comment:Testing performed by : [address] [address] MCV 91.4 81.3 - 96.4 fL MARY JANE PHAM Comment:Testing performed by : [address] [address] MCH 28.9 27.1 - 33.3 pg MARY JANE PHAM Comment:Testing performed by : [address] [address] MCHC 31.6(L) 32.3 - 35.7 g/dL MARY JANE PHAM Comment:Testing performed by : [address] [address] RDW CV 14.2 11.1 - 14.9 % MARY JANE PHAM Comment:Testing performed by : [address] [address] RDW SD 47.5 35.7 - 48.1 fL MARY JANE PHAM Comment:Testing performed by : [address] [address] NRBC abs 0.00 0.00 - 0.01 K/cumm MARY JANE PHAM Comment:Testing performed by : [address] [address] Blood 02/13/2022 7:25 AM CDT 02/13/2022 7:35 AM CDT us Blaze Armenta PATIENT SAFETY ATTENDANT LAB BLOOD ORDERABLES Final Resul t Performing Organization Address [facility] Co de Phone Number MARY JANE PHAM [address] [place] [address] Department [place] [address] * Basic metabolic panel (02/13/2022 7:25 AM CDT) Sodium 135 135 - 145 mmol/L MARY JANE PHAM Comment:Testing performed by : [address] [address] Potassium, pl 4.5 3.3 - 4.9 mmol/L MARY JANE PHAM Comment:Testing performed by : [address] [address] Chloride 101 97 - 110 mmol/L MARY JANE PHAM Comment:Testing performed by : [address] [address] CO2 26 22 - 32 mmol/L MARY JANE PHAM Comment:Testing performed by : [address] [address] Anion gap 8 2 - 15 mmol/L MARY JANE PHAM Comment:Testing performed by : [address] [address] BUN 19 8 - 25 mg/dL MARY JANE PHAM Comment:Testing performed by : [address] [address] Creatinine 0.60 0.60 - 1.10 mg/dL MARY JANE Comment:Testing performed by : [address] [address] Glucose 162 70 - 199 mg/dL MARY [...] was last revised 2017. Testing performed by: [address] [address] Calcium 9.8 8.5 - 10.3 mg/dL MARY JANE Comment:Testing performed by : [address] [address] Blood 02/13/2022 7:25 AM CDT 02/13/2022 7:33 AM CDT Blaze Armenta NP LAB BLOOD ORDERABLES Final Resul t Performing Organization Address [facility] Co de Phone Number [facility] [address] [facility] Department of Laboratories [place], [place] [id number] * POCT glucose (02/12/2022 8:38 PM CDT) Glucose, POC 199 70 - 199 mg/dL MARY JANE Comment:Testing performed by : [address] [address] Blood 02/12/2022 8:38 PM CDT 02/12/2022 8:38 PM CDT Neha Solo MD LAB POCT ORDERABLES - NILESH CE Final Result Performing Organization Address City/[facility] Co de Phone Number [address] [address] * POCT glucose (02/12/2022 4:43 PM CDT) Glucose, POC 179 70 - 199 mg/dL MARY JANE Comment:Testing performed by : [address] [address] Glucose comment 1 Use This Result MARY JANE Comment:Testing performed by : [address] [address] Blood 02/12/2022 4:43 PM CDT 02/12/2022 4:43 PM CDT Neha Solo MD LAB POCT ORDERABLES - NILESH CE Final Result Performing Organization Address [facility] de Phone Number [address] [address] * POCT glucose (02/12/2022 12:21 PM CDT) Glucose, POC 125 70 - 199 mg/dL MARY JANE Comment:Testing performed by : [address] [address] Glucose comment 1 Use This Result MARY JANE Comment:Testing performed by : [address] [address] Blood 02/12/2022 12:2 1 PM CDT 02/12/2022 12:21 PM CDT Neha Solo MD LAB POCT ORDERABLES - NILESH CE Final Result Performing Organization Address [facility] Co de Phone Number [address] [address] * POCT glucose (02/12/2022 7:17 AM CDT) Glucose, POC 172 70 - 199 mg/dL MARY JANE Comment:Testing performed by : [address] [address] Glucose comment 1 Use This Result MARY JANE PHAM Comment:Testing performed by : [facility], [address] [place] [address]., [address] Blood 02/12/2022 7:17 AM CDT 02/12/2022 7:17 AM CDT Neha Solo MD LAB POCT ORDERABLES - NILESH CE Final Result Performing Organization Address [facility] Co de Phone Number BCPUJA [address] [facility] Department [place] [address] * eGFR (02/12/2022 5:24 AM CDT) eGFR 96 mL/min/1. 73 m2 [...] was last reviewed 2021. Testing performed by: [facility], [address] [place] [address]., [address] Blood 02/12/2022 5:24 AM CDT 02/12/2022 5:37 AM CDT us Blaze Armenta NP LAB BLOOD ORDERABLES Final Resul t MARY JANE [address] [facility] Department [place] [address] * (ABNORMAL) Differential, auto (02/12/2022 5:24 AM CDT) Neutrophil abs 11.1(H) 1.7 - 6.5 K/cumm MARY JANE Comment:Testing performed by : [address] [address] Imm gran abs 0.1 0.0 - 0.1 K/cumm MARY JANE Comment:Testing performed by : [address] [address] Lymphocyte abs 3.1 0.8 - 3.3 K/cumm MARY JNAE Comment:Testing performed by : [address] [address] Monocyte abs 1.0(H) 0.2 - 0.8 K/cumm MARY JANE Comment:Testing performed by : [address] [address] Eosinophil abs 0.2 0.0 - 0.5 K/cumm MARY JANE Comment:Testing performed by : [address] [address] Basophil abs 0.1 0.0 - 0.1 K/cumm MARY JANE Comment:Testing performed by : [address] [address] Neutrophil pct 71.4 % MARY JANE Comment: Interpretive Data Percent cell count reference ranges are not reported, since discordance with absolute values may lead to misinterpretation of CBC data. Current Interpretive Data was last revised on 2017. Testing performed by: [address] [address] Imm gran pct 0.5 % MARY JANE Comment: Interpretive Data Percent cell count reference ranges are not reported, since discordance with absolute values may lead to misinterpretation of CBC data. Current Interpretive Data was last revised on 2017. Testing performed by: [address] [address] Lymphocyte pct 19.9 % MARY JANE Comment: Interpretive Data Percent cell count reference ranges are not reported, since discordance with absolute values may lead to misinterpretation of CBC data. Current Interpretive Data was last revised on 2017. Testing performed by: [address] [address] Monocyte pct 6.6 % MARY JANE Comment: Interpretive Data Percent cell count reference ranges are not reported, since discordance with absolute values may lead to misinterpretation of CBC data. Current Interpretive Data was last revised on 2017. Testing performed by: [address] [address] Eosinophil pct 1.3 % MARY JANE Comment: Interpretive Data Percent cell count reference ranges are not reported, since discordance with absolute values may lead to misinterpretation of CBC data. Current Interpretive Data was last revised on 2017. Testing performed by: [address] [address] Basophil pct 0.3 % MARY JANE Comment: Interpretive Data Percent cell count reference ranges are not reported, since discordance with absolute values may lead to misinterpretation of CBC data. Current Interpretive Data was last revised on 2017. Testing performed by: [address] [address] Blood 02/12/2022 5:24 AM CDT 02/12/2022 5:36 AM CDT us Blaze Armenta NP LAB BLOOD ORDERABLES Final Resul t MARY JANE PHAM [address] [facility] Department [place] [address] * (ABNORMAL) CBC with auto differential (02/12/2022 5:24 AM CDT) WBC 15.6(H) 3.8 - 9.9 K/cumm MARY JANE PHAM Comment:Testing performed by : [address] [address] Hgb 12.4 11.9 - 15.5 g/dL MARY JANE Comment:Testing performed by : [address] [address] Hct 40.3 35.6 - 45.5 % MARY JANE Comment:Testing performed by : [address] [address] Plt 297 150 - 400 K/cumm MARY JANE Comment:Testing performed by : [address] [address] MPV 9.7 9.1 - 12.3 fL MARY JANE Comment:Testing performed by : [address] [address] RBC 4.37 3.90 - 5.20 M/cumm MARY JANE Comment:Testing performed by : [address] [address] MCV 92.2 81.3 - 96.4 fL MARY JANE Comment:Testing performed by : [address] [address] MCH 28.4 27.1 - 33.3 pg MARY JANE Comment:Testing performed by : [address] [address] MCHC 30.8(L) 32.3 - 35.7 g/dL MARY JANE Comment:Testing performed by : [address] [address] RDW CV 14.1 11.1 - 14.9 % MARY JANE Comment:Testing performed by : [address] [address] RDW SD 47.8 35.7 - 48.1 fL MARY JANE Comment:Testing performed by : [address] [address] NRBC abs 0.00 0.00 - 0.01 K/cumm MARY JANE Comment:Testing performed by : [address], [address] Blood 02/12/2022 5:24 AM CDT 02/12/2022 5:36 AM CDT us Blaze Armenta NP LAB BLOOD ORDERABLES Final Resul t MARY JANE [address] [facility] Department [place] [address] * Basic metabolic panel (02/12/2022 5:24 AM CDT) Sodium 137 135 - 145 mmol/L MARY JANE Comment:Testing performed by : [address] [address] Potassium, pl 4.4 3.3 - 4.9 mmol/L MARY JANE Comment:Testing performed by : [address] [address] Chloride 102 97 - 110 mmol/L MARY JANE Comment:Testing performed by : [address] [address] CO2 27 22 - 32 mmol/L MARY JANE Comment:Testing performed by : [address] [address] Anion gap 8 2 - 15 mmol/L MARY JANE Comment:Testing performed by : [address] [address] BUN 25 8 - 25 mg/dL MARY JANE Comment:Testing performed by : [address] [address] Creatinine 0.70 0.60 - 1.10 mg/dL MARY JANE Comment:Testing performed by : [address] [address] Glucose 166 70 - 199 mg/dL MARY JANE Comment: [...] was last revised 2017. Testing performed by: [address] [address] Calcium 9.3 8.5 - 10.3 mg/dL MARY JANE Comment:Testing performed by : [address] [address] Blood 02/12/2022 5:24 AM CDT 02/12/2022 5:37 AM CDT Blaze Armenta NP LAB BLOOD ORDERABLES Final Resul t Performing Organization Address [facility] de Phone Number [address] [place] [address] * (ABNORMAL) POCT glucose (02/11/2022 7:58 PM CDT) Glucose, POC 268(H) 70 - 199 mg/dL MARY JANE Comment:Testing performed by : [address] [address] Glucose comment 1 Use This Result MARY JANE Comment:Testing performed by : [address] [address] Blood 02/11/2022 7:58 PM CDT 02/11/2022 7:58 PM CDT us Neha Solo MD LAB POCT ORDERABLES - NILESH CE Final Result Performing Organization Address [facility] Co de Phone Number [address] [place] [address] * POCT glucose (02/11/2022 3:59 PM CDT) Glucose, POC 130 70 - 199 mg/dL MARY JANE Comment:Testing performed by : [address] [address] Glucose comment 1 Use This Result MARY JANE Comment:Testing performed by : [address] [address] Blood 02/11/2022 3:59 PM CDT 02/11/2022 3:59 PM CDT Neha Solo MD LAB POCT ORDERABLES - NILESH CE Final Result MARY JANE [address] [facility] Department of Laboratories [place], [place] [id number] * COVID-19 Coronavirus RNA Nasopharyngeal (02/11/2022 12:16 PM CDT) COVID-19 RNA Negative Negative MARY JANE Comment:Testing performed by : [facility], [address] [place] [address]., [address] Nasopharyngeal 02/11/2022 12 :16 PM CDT 02/11/2022 12:23 PM CDT Narrative [facility] - 02/11/2022 12:59 PM CDT Retest Is the patient experiencing any symptoms consistent with COVID (eg. Fever, cough, shortness of breath)?->No What is the reason for testing?->Known exposure to confirmed/suspected COVID-19 case (Rapid) ??Interpretive data: Synonyms for this test include: PCR and NAAT . ??This test is performed using the [employer] Xpert Xpress plus assay. This is a real-time RT-PCR test intended for the qualitative detection of nucleic acid from the SARS-CoV-2. This assay has been reviewed by the FDA for Emergency Use Authorization (EUA). The performance characteristics have been verified by the performing laboratory. Results must be considered in the clinical context and a negative result does not rule out infection. Interpretive data last revised September 22, 2021. ??Interpretive data: Synonyms for this test include: PCR and NAAT . ??This test is performed using the [employer] Xpert Xpress plus assay. This is a real-time RT-PCR test intended for the qualitative detection of nucleic acid from the SARS-CoV-2. This assay has been reviewed by the FDA for Emergency Use Authorization (EUA). The performance characteristics have been verified by the performing laboratory. Results must be considered in the clinical context and a negative result does not rule out infection. Interpretive data last revised September 22, 2021. Result [facility] Neha Solo MD LAB MICROBIOLOGY - GENERAL ORDERABLES Final Result Performing Organization Address City[facility] Co de Phone Number MARY JANE [address] [address] * POCT glucose (02/11/2022 11:48 AM CDT) Glucose, POC 125 70 - 199 mg/dL MARY JANE Comment:Testing performed by : [address] [address] Glucose comment 1 Use This Result MARY JANE Comment:Testing performed by : [address] [address] Blood 02/11/2022 11:4 8 AM CDT 02/11/2022 11:48 AM CDT Result [facility] Neha Solo MD LAB POCT ORDERABLES - NILESH CE Final Result Performing Organization Address [facility] de Phone Number [address] [address] * POCT glucose (02/11/2022 7:52 AM CDT) Glucose, POC 175 70 - 199 mg/dL MARY JANE Comment:Testing performed by : [address] [address] Glucose comment 1 Use This Result MARY JANE Comment:Testing performed by : [address] [address] Blood 02/11/2022 7:52 AM CDT 02/11/2022 7:52 AM CDT Result [facility] Neha Solo MD LAB POCT ORDERABLES - NILESH CE Final Result Performing Organization Address City[facility] Co de Phone Number [address] [address] * eGFR (02/11/2022 2:55 AM CDT) eGFR 96 mL/min/1. 73 m2 [...] was last reviewed 2021. Testing performed by: [facility], [address] [place] [address]., [address] Blood 02/11/2022 2:55 AM CDT 02/11/2022 4:13 AM CDT us Genaro Coy MD LAB BLOOD ORDERABLES Final R esult MARY JANE PHAM [address] [facility] Department [place] [address] * (ABNORMAL) Differential, auto (02/11/2022 2:55 AM CDT) Pathologist [facility] Neutrophil abs 11.5(H) 1.7 - 6.5 K/cumm MARY JANE PHAM Comment:Testing performed by : [address] [address] Imm gran abs 0.1 0.0 - 0.1 K/cumm MARY JANE Comment:Testing performed by : [address] [address] Lymphocyte abs 2.9 0.8 - 3.3 K/cumm MARY JANE Comment:Testing performed by : [address] [address] Monocyte abs 1.1(H) 0.2 - 0.8 K/cumm [facility] Comment:Testing performed by : [address], [place]., [address] Eosinophil abs 0.2 0.0 - 0.5 K/cumm [facility] Comment:Testing performed by : [address] [address] Basophil abs 0.0 0.0 - 0.1 K/cumm [facility] Comment:Testing performed by : [address] [address] Neutrophil pct 72.9 % [facility] Comment: Interpretive Data Percent cell count reference ranges are not reported, since discordance with absolute values may lead to misinterpretation of CBC data. Current Interpretive Data was last revised on 2017. Testing performed by: [address] [address] Imm gran pct 0.6 % CERNER Comment: Interpretive Data Percent cell count reference ranges are not reported, since discordance with absolute values may lead to misinterpretation of CBC data. Current Interpretive Data was last revised on 2017. Testing performed by: [address] [address] Lymphocyte pct 18.3 % CERNER Comment: Interpretive Data Percent cell count reference ranges are not reported, since discordance with absolute values may lead to misinterpretation of CBC data. Current Interpretive Data was last revised on 2017. Testing performed by: [address] [address] Monocyte pct 6.6 % CERNER Comment: Interpretive Data Percent cell count reference ranges are not reported, since discordance with absolute values may lead to misinterpretation of CBC data. Current Interpretive Data was last revised on 2017. Testing performed by: [address] [address] Eosinophil pct 1.3 % MARY JANE Comment: Interpretive Data Percent cell count reference ranges are not reported, since discordance with absolute values may lead to misinterpretation of CBC data. Current Interpretive Data was last revised on 2017. Testing performed by: [address] [address] Basophil pct 0.3 % MARY JANE Comment: Interpretive Data Percent cell count reference ranges are not reported, since discordance with absolute values may lead to misinterpretation of CBC data. Current Interpretive Data was last revised on 2017. Testing performed by: [address] [address] Blood 02/11/2022 2:55 AM CDT 02/11/2022 4:13 AM CDT us Blaze Armenta NP LAB BLOOD ORDERABLES Final Resul t [facility] [address] [facility] Department [place] [address] * (ABNORMAL) CBC with auto differential (02/11/2022 2:55 AM CDT) WBC 15.8(H) 3.8 - 9.9 K/cumm MARY JANE Comment:Testing performed by : [address] [address] Hgb 12.7 11.9 - 15.5 g/dL MARY JANE PHAM Comment:Testing performed by : [address] [address] Hct 40.5 35.6 - 45.5 % MARY JANE PHAM Comment:Testing performed by : [address] [address] Plt 316 150 - 400 K/cumm MARY JANE Comment:Testing performed by : [address] [address] MPV 9.9 9.1 - 12.3 fL MARY JANE PHAM Comment:Testing performed by : [address] [address] RBC 4.44 3.90 - 5.20 M/cumm MARY JANE PHAM Comment:Testing performed by : [address] [address] MCV 91.2 81.3 - 96.4 fL MARY JANE PHAM Comment:Testing performed by : [address] [address] MCH 28.6 27.1 - 33.3 pg MARY JANE PHAM Comment:Testing performed by : [address] [address] MCHC 31.4(L) 32.3 - 35.7 g/dL MARY JANE PHAM Comment:Testing performed by : [address] [address] RDW CV 14.3 11.1 - 14.9 % MARY JANE PHAM Comment:Testing performed by : [address] [address] RDW SD 48.1 35.7 - 48.1 fL MARY JANE PHAM Comment:Testing performed by : [address] [address] NRBC abs 0.00 0.00 - 0.01 K/cumm MARY JANE PHAM Comment:Testing performed by : [address] [address] Blood 02/11/2022 2:55 AM CDT 02/11/2022 4:13 AM CDT us Blaze Armenta NP LAB BLOOD ORDERABLES Final Resul t MARY JANE PHAM [address] [facility] Department [place] [address] * (ABNORMAL) Hemoglobin A1c (02/11/2022 2:55 AM CDT) Hgb A1C 7.7(H) 4.0 - 5.6 % MARY JANE PHAM Comment:Testing performed by : [address] [address] Estimated Average Glucose 174 mg/dL MARY JANE Comment: The ADA recommends reporting an estimated Average Glucose (eAG) with all Hemoglobin A1c results using the equation derived from a study of 507 normal and diabetic adults. ??Minority populations were underrepresented and children were not included. ?? (Diabetes Care 31:5777-9303, 2008). ??The eAG is not equivalent to a fasting glucose. Testing performed by: [address] [address] Blood 02/11/2022 2:55 AM CDT 02/11/2022 4:13 AM CDT us Genaro Coy MD LAB BLOOD ORDERABLES Final R esult MARY JANE [address] [facility] Department [place] [address] * Comprehensive metabolic panel (02/11/2022 2:55 AM CDT) Sodium 136 135 - 145 mmol/L MARY JANE Comment:Testing performed by : [address] [address] Potassium, pl 4.4 3.3 - 4.9 mmol/L MARY JANE Comment:Testing performed by : [address] [address] Chloride 98 97 - 110 mmol/L MARY JANE Comment:Testing performed by : [address] [address] CO2 27 22 - 32 mmol/L MARY JANE Comment:Testing performed by : [address] [address] Anion gap 11 2 - 15 mmol/L MARY JANE Comment:Testing performed by : [address] [address] BUN 22 8 - 25 mg/dL MARY JANE Comment:Testing performed by : [address] [address] Creatinine 0.70 0.60 - 1.10 mg/dL MARY JANE Comment:Testing performed by : [address] [address] Glucose 140 70 - 199 mg/dL MARY [...] was last revised 2017. Testing performed by: [address] [address] Calcium 9.7 8.5 - 10.3 mg/dL MARY JANE Comment:Testing performed by : [address] [address] Bilirubin, total 0.8 0.1 - 1.2 mg/dL [facility] Comment:Testing performed by : [address] [address] Protein, pl 7.9 6.5 - 8.5 g/dL [facility] Comment:Testing performed by : [address] [address] Albumin 3.7 3.5 - 5.0 g/dL [facility] Comment:Testing performed by : [address] [address] Alk phos 102 40 - 130 Units/L [facility] Comment:Testing performed by : [address] [address] ALT 19 7 - 45 Units/L [facility] Comment:Testing performed by : [address] [address] AST 15 10 - 45 Units/L MARY JANE Comment:Testing performed by : [address] [address] Blood 02/11/2022 2:55 AM CDT 02/11/2022 4:13 AM CDT Genaro Coy MD LAB BLOOD ORDERABLES Final R esult Performing Organization Address [facility] Co de Phone Number MARY JANE [address] [place] [address] * (ABNORMAL) POCT glucose (02/10/2022 7:49 PM CDT) Glucose, POC 227(H) 70 - 199 mg/dL MARY JANE Comment:Testing performed by : [facility], [address] [place] [address]., [address] Glucose comment 1 Use This Result MARY JANE Comment:Testing performed by : [address] [address] Blood 02/10/2022 7:49 PM CDT 02/10/2022 7:49 PM CDT Neha Solo MD LAB POCT ORDERABLES - NILESH CE Final Result Performing Organization Address [facility] de Phone Number [address] [address] * POCT glucose (02/10/2022 5:18 PM CDT) Glucose, POC 167 70 - 199 mg/dL MARY JANE Comment:Testing performed by : [address] [address] Glucose comment 1 Use This Result MARY JANE Comment:Testing performed by : [address] [address] Blood 02/10/2022 5:18 PM CDT 02/10/2022 5:18 PM CDT Neha Solo MD LAB POCT ORDERABLES - NILESH CE Final Result Performing Organization Address City/[facility] Co de Phone Number [address] [address] * POCT glucose (02/10/2022 11:21 AM CDT) Glucose, POC 114 70 - 199 mg/dL Comment:Testing performed by : [facility], [address] [place] [address]., [address] Glucose comment 1 Use This Result [facility] Comment:Testing performed by : [address] [address] Blood 02/10/2022 11:2 1 AM CDT 02/10/2022 11:21 AM CDT Neha Solo MD LAB POCT ORDERABLES - NILESH CE Final Result Performing Organization Address [facility] Co de Phone Number [address] [place] [address] * POCT glucose (02/10/2022 8:21 AM CDT) Pathologist [facility] [place] Glucose, POC 131 70 - 199 mg/dL MARY JANE Comment:Testing performed by : [facility], [address] [place] [address]., [address] Glucose comment 1 Use This Result MARY JANE Comment:Testing performed by : [facility], [address] [place] [address]., [address] Blood 02/10/2022 8:21 AM CDT 02/10/2022 8:21 AM CDT Result [facility] Neha Solo MD LAB POCT ORDERABLES - NILESH CE Final Result Performing Organization Address [facility] de Phone Number [address] [place] [address] * eGFR (02/10/2022 6:12 AM CDT) eGFR 96 mL/min/1. 73 m2 [...] was last reviewed 2021. Testing performed by: [address] [address] Blood 02/10/2022 6:12 AM CDT 02/10/2022 6:51 AM CDT us Blaze Armenta NP LAB BLOOD ORDERABLES Final Resul t MARY JANE [address] [facility] Department of Laboratories [place], [place] [id number] * (ABNORMAL) Differential, auto (02/10/2022 6:12 AM CDT) Neutrophil abs 10.4(H) 1.7 - 6.5 K/cumm MARY JANE PHAM Comment:Testing performed by : [address] [address] Imm gran abs 0.1 0.0 - 0.1 K/cumm MARY JANE PHAM Comment:Testing performed by : [address] [address] Lymphocyte abs 2.6 0.8 - 3.3 K/cumm MARY JANE PHAM Comment:Testing performed by : [address] [address] Monocyte abs 0.9(H) 0.2 - 0.8 K/cumm [facility] Comment:Testing performed by : [address] [address] Eosinophil abs 0.2 0.0 - 0.5 K/cumm [facility] Comment:Testing performed by : [address] [address] Basophil abs 0.0 0.0 - 0.1 K/cumm [facility] Comment:Testing performed by : [address] [address] Neutrophil pct 73.5 % [facility] Comment: Interpretive Data Percent cell count reference ranges are not reported, since discordance with absolute values may lead to misinterpretation of CBC data. Current Interpretive Data was last revised on 2017. Testing performed by: [address] [address] Imm gran pct 0.4 % [facility] Comment: Interpretive Data Percent cell count reference ranges are not reported, since discordance with absolute values may lead to misinterpretation of CBC data. Current Interpretive Data was last revised on 2017. Testing performed by: [address] [address] Lymphocyte pct 18.4 % [facility] Comment: Interpretive Data Percent cell count reference ranges are not reported, since discordance with absolute values may lead to misinterpretation of CBC data. Current Interpretive Data was last revised on 2017. Testing performed by: [address] [address] Monocyte pct 6.4 % [facility] Comment: Interpretive Data Percent cell count reference ranges are not reported, since discordance with absolute values may lead to misinterpretation of CBC data. Current Interpretive Data was last revised on 2017. Testing performed by: [address] [address] Eosinophil pct 1.1 % [facility] Comment: Interpretive Data Percent cell count reference ranges are not reported, since discordance with absolute values may lead to misinterpretation of CBC data. Current Interpretive Data was last revised on 2017. Testing performed by: [address] [address] Basophil pct 0.2 % MARY JANE PHAM Comment: Interpretive Data Percent cell count reference ranges are not reported, since discordance with absolute values may lead to misinterpretation of CBC data. Current Interpretive Data was last revised on 2017. Testing performed by: [address] [address] Blood 02/10/2022 6:12 AM CDT 02/10/2022 6:52 AM CDT us Blaze Armenta NP LAB BLOOD ORDERABLES Final Resul t MARY JANE [address] [facility] Department [place] [address] * (ABNORMAL) CBC with auto differential (02/10/2022 6:12 AM CDT) WBC 14.2(H) 3.8 - 9.9 K/cumm MARY JANE PHAM Comment:Testing performed by : [address] [address] Hgb 13.1 11.9 - 15.5 g/dL MARY JANE PHAM Comment:Testing performed by : [address] [address] Hct 41.2 35.6 - 45.5 % MARY JANE PHAM Comment:Testing performed by : [address] [address] Plt 288 150 - 400 K/cumm MARY JANE PHAM Comment:Testing performed by : [address] [address] MPV 9.8 9.1 - 12.3 fL MARY JANE PHAM Comment:Testing performed by : [address] [address] RBC 4.55 3.90 - 5.20 M/cumm MARY JANE PHAM Comment:Testing performed by : [address] [address] MCV 90.5 81.3 - 96.4 fL MARY JANE PHAM Comment:Testing performed by : [address] [address] MCH 28.8 27.1 - 33.3 pg MARY JANE PHAM Comment:Testing performed by : [address] [address] MCHC 31.8(L) 32.3 - 35.7 g/dL MARY JANE PHAM Comment:Testing performed by : [address] [address] RDW CV 14.6 11.1 - 14.9 % MARY JANE PHAM Comment:Testing performed by : [address] [address] RDW SD 48.1 35.7 - 48.1 fL MARY JANE PHAM Comment:Testing performed by : [address] [address] NRBC abs 0.00 0.00 - 0.01 K/cumm MARY JANE PHAM Comment:Testing performed by : [address] [address] Blood 02/10/2022 6:12 AM CDT 02/10/2022 6:52 AM CDT us Blaze Armenta NP LAB BLOOD ORDERABLES Final Resul t MARY JANE PHAM [facility] Department [place] [address] * Basic metabolic panel (02/10/2022 6:12 AM CDT) Sodium 138 135 - 145 mmol/L MARY JANE PHAM Comment:Testing performed by : [address] [address] Potassium, pl 4.4 3.3 - 4.9 mmol/L MARY JANE PHAM Comment:Testing performed by : [address] [address] Chloride 101 97 - 110 mmol/L MARY JANE PHAM Comment:Testing performed by : [address] [address] CO2 28 22 - 32 mmol/L MARY JANE PHAM Comment:Testing performed by : [address] [address] Anion gap 9 2 - 15 mmol/L MARY JANE Comment:Testing performed by : [address] [address] BUN 21 8 - 25 mg/dL MARY JANE Comment:Testing performed by : [address] [address] Creatinine 0.70 0.60 - 1.10 mg/dL MARY JANE Comment:Testing performed by : [address] [address] Glucose 139 70 - 199 mg/dL MARY JANE Comment: [...] was last revised 2017. Testing performed by: [address] [address] Calcium 10.0 8.5 - 10.3 mg/dL MARY JANE Comment:Testing performed by : [address] [address] Blood 02/10/2022 6:12 AM CDT 02/10/2022 6:51 AM CDT us Blaze Armenta NP LAB BLOOD ORDERABLES Final Resul t MARY JANE PHAM [address] [facility] Department [place] [address] * POCT glucose (02/09/2022 10:27 PM CDT) [facility] Glucose, POC 161 70 - 199 mg/dL MARY JANE Comment:Testing performed by : [address] [address] Glucose comment 1 Use This Result MARY JANE PHAM Comment:Testing performed by : [facility], [address] [place] [address], [place]., [address] Blood 02/09/2022 10:2 7 PM CDT 02/09/2022 10:27 PM CDT Mariel Florentino MD LAB POCT ORDERABLE S - DEVICE Final Result MARY JANE [address] [facility] Department [place] [address] * CT Chest Abdomen Pelvis W Contrast (02/09/2022 5:33 PM CDT) Anatomical Region Laterality Modality Body N/A Computed Tomogra phy 02/09/2022 6:11 PM CDT Narrative 02/09/2022 6:21 PM CDT EXAM DESCRIPTION: ?? CT CHEST ABDOMEN PELVIS W CONTRAST REASON FOR STUDY: ?? Sepsis, UTI, Dyspnea on exertion ?? pmhx obesity, breast ca, CHF, depression, DM, DVt/PE, presenting to the ED c/o UTI sx x 7 days. She admits to urinary frequency, nausea, vomiting, fatigue, suprapubic abdominal pain, chills, R flank pain. She had an episode of incontinence here at the ?? ER. She also notes worsening dyspnea on exertion and SOB. ?Pt notes recurrent UTI since September. In October her spinal cord stimulator developed an abscess and she was treated for osteomyelitis. She states she just finished a round of Bactrim this month but her symptoms returned. Pt is on Xarelto for a known PE/DVT ? TECHNIQUE: CT scan of the chest, abdomen, and pelvis performed with intravenous and ?? without ??oral contrast using helical scanning technique with dynamic intravenous contrast injection. Reconstructed coronal and sagittal MPR images reviewed. All images stored on PACS. ?? Automated exposure control was used as a dose optimization technique for this examination. CONTRAST TYPE/DOSE: ?? 100mL of IOVERSOL 350 MG IODINE/ML INTRAVENOUS SYRINGE ?? COMPARISON: ?? CT chest September 11, 2021, CT abdomen pelvis December 22, 2021 FINDINGS: CHEST LUNGS: ?? Respiratory motion. ??Minimal dependent atelectasis in the lung bases. A few scattered benign calcified granulomas. In the posteromedial aspect of the left lower lobe are several noncalcified pulmonary nodules, the largest measures 0.5 cm (series 3, image 66/91), stable from September 11, 2021 and new from November 11, 2017. Scattered peripheral tiny micro nodules measuring 0.2 cm. ??No pulmonary mass. ?? Mild secretions in the trachea. PLEURA: ?? No pleural effusion or pneumothorax. MEDIASTINUM/SHALA: ?? Heterogeneous enhancement of the thyroid with coarse calcifications. ??In the anterior mediastinum is a stable soft tissue nodule measuring 1.1 cm. HEART: ?? Cardiomegaly. ??No pericardial effusion. ??Coronary artery calcifications. VASCULATURE CHEST: ?? No thoracic aortic aneurysm or dissection. AXILLA: ?? No adenopathy. ABDOMEN/PELVIS LIVER: ?? Liver is decreased in density compatible with fatty infiltration. ?? Liver is normal in size. GALLBLADDER: ?? Surgically absent. BILE DUCTS: ?? No intrahepatic or extrahepatic ductal dilatation. SPLEEN: ?? Normal in size and density. PANCREAS: ?? Normal. ?? ADRENALS: ?? Normal. KIDNEYS/URINARY TRACT: ?? No renal calculus or hydronephrosis. ??Simple appearing right renal cortical cysts requiring no follow-up. ?Urinary bladder is unremarkable. GI: ?? No dilated loops of large or small bowel. ??Colonic diverticulosis without diverticulitis. ??The appendix is normal. PERITONEUM: ?? No ascites or free air. RETROPERITONEUM: ?? No lymphadenopathy. REPRODUCTIVE: ?? Not well evaluated by CT. VASCULATURE ABDOMEN: ?? No abdominal aortic aneurysm. MUSCULOSKELETAL CHEST ABDOMEN PELVIS: ?? Postsurgical changes about the anterior abdominal wall with hernia repair. ??Degenerative changes of the bilateral sacroiliac joints with periarticular sclerosis and vacuum phenomenon. ??Narrowing and sclerosis of the pubic symphysis. ??Disc space narrowing with spondylosis and endplate degenerative change in the midthoracic spine. ??Spinal stimulator leads in the midthoracic spine. ??Facet arthropathy in the lumbar spine. OTHER: ?? No significant abnormality. IMPRESSION: ?? 1. ??No acute abnormality in the chest, abdomen, or pelvis. ?? 2. ??Noncalcified pulmonary nodules. ??According to Fleischner society guidelines if patient is low risk no further follow-up. ??If patient is high risk optional follow-up CT chest without contrast in 1 year. THIS IS AN ELECTRONICALLY VERIFIED FINAL REPORT 02/09/2022 6:21 PM - Electronically signed by ??July Jagjit Breen July Jagjit Breen AC: JUDY D: ??02/09/2022 6:21 PM T: ??02/09/2022 6:21 PM Report ID: [id number] Reading Location: ??[id number] Procedure Note Jagjit July Breanna, DO - 02/09/2022 EXAM DESCRIPTION: CT CHEST ABDOMEN PELVIS W CONTRAST REASON FOR STUDY: Sepsis, UTI, Dyspnea on exertion pmhx obesity, breast ca, CHF, depression, DM, DVt/PE, presenting to the EDc/o UTI sx x 7 days. She admits to urinary frequency, nausea, vomiting,fatigue, suprapubic abdominal pain, chills, R flank pain. She had an episode of incontinence here at the ER. She also notes worsening dyspnea onexertion and SOB. Pt notes recurrent UTI since September. In October her spinal cord stimulator developed an abscess and she was treated for osteomyelitis. She states she just finished a round of Bactrim this month but her symptoms returned. Pt is on Xarelto for a known PE/DVT TECHNIQUE: CT scan of the chest, abdomen, and pelvis performed with intravenous and without oral contrast using helical scanning techniquewith dynamic intravenous contrast injection. Reconstructed coronal and sagittalMPR images reviewed. All images stored on PACS. Automated exposure control was used as a dose optimization technique forthis examination. CONTRAST TYPE/DOSE: 100mL of IOVERSOL 350 MG IODINE/ML INTRAVENOUSSYRINGE COMPARISON: CT chest September 11, 2021, CT abdomen pelvis December 22, 2021 FINDINGS: CHEST LUNGS: Respiratory motion. Minimal dependent atelectasis in the lungbases. A few scattered benign calcified granulomas. In the posteromedial aspect of the left lower lobe are severalnoncalcified pulmonary nodules, the largest measures 0.5 cm (series 3, image 66/91),stable from September 11, 2021 and new from November 11, 2017. Scattered peripheral tiny micro nodules measuring 0.2 cm. No pulmonarymass. Mild secretions in the trachea. PLEURA: No pleural effusion or pneumothorax. MEDIASTINUM/SHALA: Heterogeneous enhancement of the thyroid with coarse calcifications. In the anterior mediastinum is a stable soft tissuenodule measuring 1.1 cm. HEART: Cardiomegaly. No pericardial effusion. Coronary artery calcifications. VASCULATURE CHEST: No thoracic aortic aneurysm or dissection. AXILLA: No adenopathy. ABDOMEN/PELVIS LIVER: Liver is decreased in density compatible with fatty infiltration. Liver is normal in size. GALLBLADDER: Surgically absent. BILE DUCTS: No intrahepatic or extrahepatic ductal dilatation. SPLEEN: Normal in size and density. PANCREAS: Normal. ADRENALS: Normal. KIDNEYS/URINARY TRACT: No renal calculus or hydronephrosis. Simple appearing right renal cortical cysts requiring no follow-up. Urinary bladder is unremarkable. GI: No dilated loops of large or small bowel. Colonic diverticulosis without diverticulitis. The appendix is normal. PERITONEUM: No ascites or free air. RETROPERITONEUM: No lymphadenopathy. REPRODUCTIVE: Not well evaluated by CT. VASCULATURE ABDOMEN: No abdominal aortic aneurysm. MUSCULOSKELETAL CHEST ABDOMEN PELVIS: Postsurgical changes about the anterior abdominal wall with hernia repair. Degenerative changes of the bilateral sacroiliac joints with periarticular sclerosis and vacuum phenomenon. Narrowing and sclerosis of the pubic symphysis. Disc space narrowing with spondylosis and endplate degenerative change in themidthoracic spine. Spinal stimulator leads in the midthoracic spine. Facetarthropathy in the lumbar spine. OTHER: No significant abnormality. IMPRESSION: 1. No acute abnormality in the chest, abdomen, or pelvis. 2. Noncalcified pulmonary nodules. According to Fleischner society guidelines if patient is low risk no further follow-up. If patient ishigh risk optional follow-up CT chest without contrast in 1 year. THIS IS AN ELECTRONICALLY VERIFIED FINAL REPORT 02/09/2022 6:21 PM - Electronically signed by Dulce Danielson D.O. AC: JUDY Report ID: [id number] Reading Location: [place] [address] [address] IMG [address] PROCEDURES Final Resu lt * Blood culture Blood Wrist, right (02/09/2022 5:09 PM CDT) Report Final Report: No growth MARY JANE PHAM Comment:Testing performed by : [facility], [address] [facility], [place]., [address] Blood (Wrist, right) 02/09/2022 5:09 PM CDT 02/09/2022 9:41 PM CDT Narrative MARY JANE PHAM - 02/14/2022 7:00 AM CDT FA only 1. ?Blood cultures are incubated for 4 [...] organism identification may be performed using the [employer] Gram-Positive Blood Culture Assay. This assay detects microbial DNA in positive blood culture broth via hybridization of target DNA to capture oligonucleotides on a microarray. This assay has been cleared by the [place] Food and Drug Administration and its performance characteristics have been verified by the [facility] Microbiology [facility]. 5. ?For questions about this culture, contact the Microbiology Laboratory at [phone]. Interpretive data was last revised on 2019. us Lila MCKEON LAB MICROBIOLOGY - GENERAL O RDERABLES Final Result MARY JANE PHAM [address] [facility] Department [place] [address] * aPTT (02/09/2022 4:55 PM CDT) aPTT 32 22 - 37 sec MARY JANE PHAM Comment: Interpretive data aPTT test has not been evaluated for monitoring heparin therapy. The anti-Xa is the preferred test. Current interpretive data was last revised on 2019. Testing performed by: [address] [address] Blood 02/09/2022 4:55 PM CDT 02/09/2022 4:57 PM CDT Lila MCKEON LAB BLOOD ORDERABLES Final R esult Performing Organization Address [facility] Co de Phone Number MARY JANE [address] [place] [address] * (ABNORMAL) Protime-INR (02/09/2022 4:55 PM CDT) PT 18.1(H) 12.0 - 14.6 sec MARY JANE Comment: Ref Range High Testing performed by: [address] [address] INR 1.5(H) 0.9 - 1.2 MARY JANE Comment: Ref Range High Interpretive data Oral anticoagulant therapeutic ranges: Venous thromboembolism prophylaxis or treatment: 2.0-3.0 CARDIOLOGY Standard range: 2.0-3.0 High-intensity range: 2.5-3.5 Refer to indication-specific guidelines for appropriate target ranges for prosthetic heart valve replacement. Current interpretive data was last revised on 2019. Testing performed by: [address] [address] Blood 02/09/2022 4:55 PM CDT 02/09/2022 4:57 PM CDT Lila MCKEON LAB BLOOD ORDERABLES Final R esult Performing Organization Address [facility] Co de Phone Number MARY JANE [address] [facility] [place] [address] * Blood culture Blood Forearm, right (02/09/2022 4:55 PM CDT) Report Final Report: No growth [facility]ER[facility] PHAM Comment:Testing performed by : [facility], [address] [facility], [place]., [address] Blood (Forearm, right) 02/09/2022 4:55 PM CDT 02/09/2022 9:42 PM CDT Narrative MARY JANE PHAM - 02/14/2022 7:00 AM CDT 1. ?Blood cultures are incubated for 4 [...] organism identification may be performed using the [employer] Gram-Positive Blood Culture Assay. This assay detects microbial DNA in positive blood culture broth via hybridization of target DNA to capture oligonucleotides on a microarray. This assay has been cleared by the [place] Food and Drug Administration and its performance characteristics have been verified by the [facility]biology [facility]. 5. ?For questions about this culture, contact the Microbiology Laboratory at [phone]. Interpretive data was last revised on 2019. us Lila MCKEON LAB MICROBIOLOGY - GENERAL O RDERABLES Final Result MARY JANE PHAM [id number] [facility] Department [place] [address] * (ABNORMAL) Influenza A/B, RSV, and COVID-19 PCR Nasopharyngeal (02/09/2022 4:46 PM CDT) COVID-19 RNA Positive(A) Negative MARY JANE PHAM Comment:Testing performed by : [address] [address] Influenza A RNA Negative Negative MARY JANE Comment:Testing performed by : [address] [address] Influenza B RNA Negative Negative [facility] Comment:Testing performed by : [address] [address] RSV RNA Negative Negative MARY JANE Comment: Interpretive data: This test is performed using the [employer] Xpert Xpress CoV-2/Flu/RSV plus assay. This is [...] Data last revised 2021. Testing performed by: [address] [address] Nasopharyngeal 02/09/2022 4: 46 PM CDT 02/09/2022 4:51 PM CDT Narrative [facility] - 02/09/2022 5:40 PM CDT Is the Patient experiencing symptoms consistent with COVID?->Yes Date of Symptom Onset->02/09/22 Reason for testing?->Symptomatic Lila MCKEON LAB MICROBIOLOGY - GENERAL O RDERABLES Final Result MARY JANE [address] [facility] Department [place] [address] * (ABNORMAL) Troponin T high-sensitivity 2-hour (02/09/2022 3:37 PM CDT) Trop T hs 18(H) <=14 ng/L MARY JANE Comment: Ref Range High Interpretive Data For further hscTnT resources including the diagnostic algorithm and an aid in interpretation, copy and paste this link: https://nrl.testcatalog.org/show/hsTrop Current Interpretive Data last revised 2020. Testing performed by: [facility], [address] [place] [address]., [address] Trop T hs delta -1 ng/L MARY JANE PHAM Comment:Testing performed by : [facility], [address] [place] [address]., [address] Trop T hs interp Insignificant MARY JANE PHAM Comment:Testing performed by : [facility], [address] [place] [address]., [address] Blood 02/09/2022 3:37 PM CDT 02/09/2022 3:42 PM CDT us Alicia MCKEON LAB BLOOD ORDERABLES Deann bowman Result MARY JANE PHAM [address] [facility] Department [place] [address] * (ABNORMAL) Urine culture Urine (02/09/2022 1:28 PM CDT) Report Final Report: Greater than or equal to 100,000 colonies/mL of Escherichia coli (.) MARY JANE PHAM Comment:Testing performed by : [facility], [address] [place] [address] Organism ESCHERICHIA COLI MARY JANE Urine 02/09/2022 1:28 PM CDT 02/09/2022 7:24 PM CDT Narrative MARY JANE - 02/12/2022 11:23 AM CDT Urine culture reflexed based upon urinalysis results. Testing performed by [facility] Microbiology Laboratory ([phone]) Organism Antibiotic Method Susceptibility Escherichia coli Ampicillin [...] INTERPRETATION Susceptible Escherichia coli Cefdinir INTERPRETATION Susceptible Alicia MCKEON LAB MICROBIOLOGY - GENERA L ORDERABLES Final Result Performing Organization Address [facility] Co de Phone Number [address] [phone] * (ABNORMAL) Urinalysis, microscopic only (02/09/2022 1:28 PM CDT) WBC, ur >50(A) 0 - 5 /HPF MARY JANE Comment:Testing performed by : [address] [address] RBC, ur 6-10(A) 0 - 2 /HPF MARY JANE Comment:Testing performed by : [address] [address] Culture Reflex Comment Reflex to urine culture will be performed. MARY JANE Comment:Testing performed by : [address] [address] Urine 02/09/2022 1:28 PM CDT 02/09/2022 1:40 PM CDT Alicia MCKEON LAB URINE ORDERABLES Deann l Result Performing Organization Address [facility] Co de Phone Number [address] [address] * (ABNORMAL) Urinalysis reflex to microscopic and culture Urine (02/09/2022 1:28 PM CDT) Color, ur Yellow Yellow MARY JANE Comment:Testing performed by : [address] [address] Clarity, ur Cloudy(A) Clear MARY JANE Comment:Testing performed by : [address] [address] Specific gravity, ur 1.015 1.003 - 1.030 MARY JANE Comment:Testing performed by : [address] [address] pH, urine 6.0 MARY JANE Comment:Testing performed by : [address] [address] Protein, ur ql Negative Negative MARY JANE Comment:Testing performed by : [facility], [address] [place] [address], [place]., [address] Glucose, ur ql Negative Negative MARY JANE Comment:Testing performed by : [facility], [address] [place] [address], [place]., [address] Ketones, ur Negative Negative MARY JANE Comment:Testing performed by : [address], [place]., [address] Bilirubin, ur Negative Negative MARY JANE Comment:Testing performed by : [facility], [address] [place] [address], [place]., [address] Blood, ur 1+(A) Negative MARY JANE Comment:Testing performed by : [address], [place]., [address] Urobilinogen, ur 0.2 <2.0 mg/dL MARY JANE Comment:Testing performed by : [address], [place]., [address] Nitrite, ur Positive(A) Negative MARY JANE Comment:Testing performed by : [facility], [address] [place] [address], [place]., [address] Leukocyte esterase, ur 2+(A) Negative MARY JANE Comment:Testing performed by : [address], [place]., [address] UA reflex comment Reflex to microscopic UA will be performed. MARY JANE Comment:Testing performed by : [address], [place]., [address] Urine 02/09/2022 1:28 PM CDT 02/09/2022 1:40 PM CDT Narrative MARY JANE - 02/09/2022 2:07 PM CDT ?? Urine pH is affected by diet, medications, systemic acid-base disturbances, and renal tubular function. ??pH may affect urinary stone formation. ??For example, urine pH below 6.0 may help reduce the tendency for calcium phosphate stones and pH greater than 6.0 may reduce the tendency for uric acid stone formation. Source: [employer]. Last revised 05-04-2017 us Alicia MCKEON LAB MICROBIOLOGY - GENERA L ORDERABLES Final Result Performing Organization Address City/State/[facility] de Phone Number [facility] [address] [facility] Department [place] [address] * ECG 12 lead (02/09/2022 1:19 PM CDT) Ventricular Rate EKG/Min 92 BPM [facility] Atrial Rate 92 BPM [facility] MO-Interval (MSEC) 134 ms [facility] QRS-Interval (MSEC) 76 ms [facility] QT-Interval (MSEC) 348 ms [facility] QTc 430 ms [facility] P Mallie 8 degrees [facility] R Mallie 0 degrees [facility] T Mallie 16 degrees [facility] Diagnosis Normal sinus rhythm Nonspecific T wave abnormality Abnormal ECG When compared with ECG of 28-JAN-2022 16:59, Premature atrial complexes are no longer Present [facility] 02/09/2022 1:19 PM CDT 02/09/2022 7:31 PM CDT us Alicia MCKEON ECG ORDERABLES Final Res ult Performing Organization Address [facility] de Phone Number [facility] * eGFR (02/09/2022 1:12 PM CDT) Pathologist [facility] eGFR 63 mL/min/1. 73 m2 MARY JANE Comment: Interpretive [...] was last reviewed 2021. Testing performed by: [address] [address] Blood 02/09/2022 1:12 PM CDT 02/09/2022 1:20 PM CDT us Alicia MCKEON LAB BLOOD ORDERABLES Deann bowman Result MARY JANE [facility] Department [place] [address] * (ABNORMAL) Differential, auto (02/09/2022 1:12 PM CDT) Neutrophil abs 12.1(H) 1.7 - 6.5 K/cumm MARY JANE Comment:Testing performed by : [address] [address] Imm gran abs 0.1 0.0 - 0.1 K/cumm MARY JANE Comment:Testing performed by : [address] [address] Lymphocyte abs 2.5 0.8 - 3.3 K/cumm MARY JANE Comment:Testing performed by : [address] [address] Monocyte abs 1.0(H) 0.2 - 0.8 K/cumm MARY JANE Comment:Testing performed by : [address] [address] Eosinophil abs 0.1 0.0 - 0.5 K/cumm MARY JANE Comment:Testing performed by : [address] [address] Basophil abs 0.1 0.0 - 0.1 K/cumm MARY JANE Comment:Testing performed by : [address] [address] Neutrophil pct 76.6 % [facility] Comment: Interpretive Data Percent cell count reference ranges are not reported, since discordance with absolute values may lead to misinterpretation of CBC data. Current Interpretive Data was last revised on 2017. Testing performed by: [address] [address] Imm gran pct 0.5 % [facility] Comment: Interpretive Data Percent cell count reference ranges are not reported, since discordance with absolute values may lead to misinterpretation of CBC data. Current Interpretive Data was last revised on 2017. Testing performed by: [address] [address] Lymphocyte pct 15.7 % [facility] Comment: Interpretive Data Percent cell count reference ranges are not reported, since discordance with absolute values may lead to misinterpretation of CBC data. Current Interpretive Data was last revised on 2017. Testing performed by: [address] [address] Monocyte pct 6.3 % [facility] Comment: Interpretive Data Percent cell count reference ranges are not reported, since discordance with absolute values may lead to misinterpretation of CBC data. Current Interpretive Data was last revised on 2017. Testing performed by: [address] [address] Eosinophil pct 0.6 % [facility] Comment: Interpretive Data Percent cell count reference ranges are not reported, since discordance with absolute values may lead to misinterpretation of CBC data. Current Interpretive Data was last revised on 2017. Testing performed by: [address] [address] Basophil pct 0.3 % [facility] Comment: Interpretive Data Percent cell count reference ranges are not reported, since discordance with absolute values may lead to misinterpretation of CBC data. Current Interpretive Data was last revised on 2017. Testing performed by: [address] [address] Blood 02/09/2022 1:12 PM CDT 02/09/2022 1:20 PM CDT Alicia MCKEON LAB BLOOD ORDERABLES Deann l Result Performing Organization Address [facility] Co de Phone Number [place] [address] [facility] [place] [address] * (ABNORMAL) Troponin T high-sensitivity series (baseline, 2hr, 4hr, 6hr) (02/09/2022 1:12 PM CDT) Pathologist [facility] Trop T hs 19(H) <=14 ng/L MARY JANE Comment: Ref Range High Interpretive Data For further hscTnT resources including the diagnostic algorithm and an aid in interpretation, copy and paste this link: https://nrl.testcatalog.org/show/hsTrop Current Interpretive Data last revised 2020. Testing performed by: [facility], [address] [place] [address]., [address] Blood 02/09/2022 1:12 PM CDT 02/09/2022 1:20 PM CDT Alicia MCKEON LAB BLOOD ORDERABLES Edit ed Result - Final Performing Organization Address [facility] Co de Phone Number [place] [address] [facility] [place] [address] * Pro B-type natriuretic peptide (02/09/2022 1:12 PM CDT) [facility] NT-proBNP 89 <=300 pg/mL MARY JANE Comment: Interpretive Comments: A. Dyspnea in Acute [...] Heart J. 2006:27:330-337. 2. Tracy RW, Duyen BEE. J. AM Wang Cardiol: Cardiovasc Imag. 2009;2: 216- 225. Interpretive Data Last Revised Date: 2017. Testing performed by: [facility], [address] [place] [address]., [address] Blood 02/09/2022 1:12 PM CDT 02/09/2022 1:20 PM CDT us Alicia MCKEON LAB BLOOD ORDERABLES Deann bowman Result MARY JANE PHAM [address] [facility] Department [place] [address] * Sepsis Lactate w/ Reflex (02/09/2022 1:12 PM CDT) Pathologist [facility] Sepsis Lactate 1.8 0.7 - 2.0 mmol/L MARY JANE PHAM Comment:Testing performed by : [address] [address] Blood 02/09/2022 1:12 PM CDT 02/09/2022 1:20 PM CDT us Alicia MCKEON LAB BLOOD ORDERABLES Deann l Result [facility] [address] [facility] Department [place] [address] * (ABNORMAL) Comprehensive metabolic panel (02/09/2022 1:12 PM CDT) Sodium 141 135 - 145 mmol/L MARY JANE Comment:Testing performed by : [address] [address] Potassium, pl 4.2 3.3 - 4.9 mmol/L MARY JANE Comment:Testing performed by : [address] [address] Chloride 102 97 - 110 mmol/L MARY JANE Comment:Testing performed by : [address] [address] CO2 26 22 - 32 mmol/L MARY JANE Comment:Testing performed by : [address] [address] Anion gap 13 2 - 15 mmol/L MARY JANE Comment:Testing performed by : [address] [address] BUN 24 8 - 25 mg/dL MARY JANE Comment:Testing performed by : [address] [address] Creatinine 1.00 0.60 - 1.10 mg/dL MARY JANE Comment:Testing performed by : [address] [address] Glucose 217(H) 70 - 199 mg/dL MARY JANE Comment: [...] was last revised 2017. Testing performed by: [address] [address] Calcium 10.2 8.5 - 10.3 mg/dL MARY JANE Comment:Testing performed by : [address] [address] Bilirubin, total 0.8 0.1 - 1.2 mg/dL [facility] Comment:Testing performed by : [address] [address] Protein, pl 8.6(H) 6.5 - 8.5 g/dL [facility] Comment:Testing performed by : [address] [address] Albumin 4.1 3.5 - 5.0 g/dL [facility] Comment:Testing performed by : [address] [address] Alk phos 108 40 - 130 Units/L [facility] Comment:Testing performed by : [address] [address] ALT 22 7 - 45 Units/L [facility] Comment:Testing performed by : [address] [address] AST 18 10 - 45 Units/L [facility] Comment:Testing performed by : [address] [address] Blood 02/09/2022 1:12 PM CDT 02/09/2022 1:20 PM CDT us Alicia MCKEON LAB BLOOD ORDERABLES Deann l Result MARY JANE PHAM [address] [facility] Department [place] [address] * (ABNORMAL) CBC with auto differential (02/09/2022 1:12 PM CDT) [facility] WBC 15.8(H) 3.8 - 9.9 K/cumm MARY JANE Comment:Testing performed by : [address] [address] Hgb 13.2 11.9 - 15.5 g/dL MARY JANE Comment:Testing performed by : [address], [address] Hct 41.9 35.6 - 45.5 % MARY JANE Comment:Testing performed by : [address], [address] Plt 309 150 - 400 K/cumm MARY JANE Comment:Testing performed by : [address], [address] MPV 9.6 9.1 - 12.3 fL MARY JANE Comment:Testing performed by : [address], [address] RBC 4.59 3.90 - 5.20 M/cumm MARY JANE Comment:Testing performed by : [address], [address] MCV 91.3 81.3 - 96.4 fL MARY JANE Comment:Testing performed by : [address], [address] MCH 28.8 27.1 - 33.3 pg MARY JANE Comment:Testing performed by : [address], [address] MCHC 31.5(L) 32.3 - 35.7 g/dL MARY JANE Comment:Testing performed by : [address], [address] RDW CV 14.4 11.1 - 14.9 % MARY JANE Comment:Testing performed by : [address], [address] RDW SD 48.2(H) 35.7 - 48.1 fL MARY JANE Comment:Testing performed by : [address], [address] NRBC abs 0.00 0.00 - 0.01 K/cumm MARY JANE Comment:Testing performed by : [facility] [address] [place] [address], [place]., [address] Blood 02/09/2022 1:12 PM CDT 02/09/2022 1:20 PM CDT us Alicia MCKEON LAB BLOOD ORDERABLES Deann colby Result MARY JANE [address] [facility] Department [place] [address] documented in this encounter Visit Diagnoses Diagnosis Cystitis- Primary Unspecified cystitis Cystitis Unspecified cystitis Essential hypertension Unspecified essential hypertension Type 2 diabetes mellitus with neurologic complication, without long-term current use of insulin ([facility]/HCC) (HCC) History of pulmonary embolism Personal history of venous thrombosis and embolism Lab test positive for detection of COVID-19 virus documented in this encounter Admitting Diagnoses Diagnosis Cystitis Unspecified cystitis documented in this encounter Administered Medications Inactive Administered Medications - up to 3 most recent administrations Medication Order MAR Action Action Date Dose Rate Site acetaminophen (TYLENOL) tablet 650 mg 650 mg, oral, Every 4 hours PRN, 1st line for pain, fever, fever greater than 38.3 C, Starting on Mon02/09/22 at 2212, Indications: Fever, PainIndications:Fever,Pain Given 02/16/2022 1:28 PM CDT 650 mg Given 02/15/2022 12:18 PM CDT 650 mg Given 02/15/2022 4:43 AM CDT 650 mg albuterol HFA (PROVENTIL HFA,VENTOLIN HFA,PROAIR HFA) 90 mcg/actuation inhaler 2 puff 2 puff, inhalation, Every 6 hours while awake (respiratory medicine physician), First dose on Mon02/09/22 at 2245 Given 02/17/2022 9:20 AM CDT 2 puffs Given 02/16/2022 8:30 PM CDT 2 puffs Given 02/16/2022 2:37 PM CDT 2 puffs amitriptyline (ELAVIL) tablet 25 mg 25 mg, oral, Nightly, First dose on Valeri 02/10/22 at 0015 Given 02/16/2022 8:51 PM CDT 25 mg Given 02/15/2022 8:14 PM CDT 25 mg Given 02/14/2022 9:09 PM CDT 25 mg Carrier Fluids for Secondary Infusion - 0.9% Sodium Chloride 30 mL, intravenous, As needed, For priming tubing and/or flushing, Starting on Mon02/09/22 at 2212, 0-250 ml/hr to flush line after IV infusions when no maintenance IV ordered. Infuse 30mL at the same rate as the secondary infusion. Run as primary IV, not intended for KVO. Given 02/10/2022 6:15 AM CDT 30 mL ciprofloxacin (CIPRO) 400 mg/200 mL in dextrose 5% (premix) 400 mg 400 mg, intravenous, at 200 mL/hr, Administer over 60 Minutes, Once, On Mon02/09/22 at 1730, For 1 dose, Indications: Abdominal/Pelvic Infection, Urinary Tract/Genitourinary InfectionIndications:Abdominal/Pelv ic Infection,Urinary Tract/Genitourinary Infection New Bag 02/09/2022 6:11 PM CDT 400 mg 2 00 mL/hr ciprofloxacin (CIPRO) 400 mg/200 mL in dextrose 5% (premix) 400 mg 400 mg, intravenous, at 200 mL/hr, Administer over 60 Minutes, 2 times daily (for quinolones,etc), First dose (after last reorder) on Valeri 02/10/22 at 0600, Indications: Abdominal/Pelvic Infection, Urinary Tract/Genitourinary InfectionIndications:Abdominal/Pelv ic Infection,Urinary Tract/Genitourinary Infection New Bag 02/12/2022 6:33 AM CDT 400 mg 2 00 mL/hr New Bag 02/11/2022 6:32 PM CDT 400 mg 200 mL/hr New Bag 02/11/2022 6:30 AM CDT 400 mg 200 mL/hr dextrose (D10W) 10% bolus 250 mL 250 mL, intravenous, at 1,000 mL/hr, Administer over 15 Minutes, Every 15 min PRN, blood glucose less than 70 mg/dL and UNABLE to swallow/take PO glucose/juice., Starting on Mon02/09/22 at 2212, After treatment for hypoglycemia, recheck BG followed [...] glucose less than 70 mg/dL, Starting on Mon02/09/22 at 2212, If patient is alert and able to [...] episode of hypoglycemia., Indications: hypoglycemic disorderIndications:hypoglycemic disorder diphenhydrAMINE (BENADRYL) injection 25 mg 25 mg, intravenous, Administer over 2 Minutes, Once, On Mon02/09/22 at 1650, For 1 dose, Indications: allergic reaction, extrapyramidal disease, Nausea and Vomiting, Urticaria, migraineIndications:allergic reaction,extrapyramidal disease,Nausea and Vomiting,Urticaria,migraine Given 02/09/2022 5:39 PM CDT 25 mg diphenhydrAMINE (BENADRYL) injection 25 mg 25 mg, intravenous, Administer over 2 Minutes, Every 6 hours PRN, allergies, itching, Starting on Mon02/12/22 at 0726, For 2 days Given 02/12/2022 7:49 AM CDT 25 mg diphenhydrAMINE (BENADRYL) injection 25 mg 25 mg, intravenous, Administer over 2 Minutes, Once, On Mon02/16/22 at 0945, For 1 dose Given 02/16/2022 9:11 AM CDT 25 mg diphenhydrAMINE (BENADRYL) injection 50 mg 50 mg, intravenous, Administer over 2 Minutes, Once, On Mon02/15/22 at 1300, For 1 dose, Indications: allergic reaction, one time dose after meropenemIndications:allergic reaction,one time dose after meropenem Given 02/15/2022 12:33 PM CDT 50 m g diphenhydrAMINE (BENADRYL) tab/cap 25 mg 25 mg, oral, Every 4 hours PRN, itching, allergies, Starting on Mon02/14/22 at 1405, For 2 days Given 02/15/2022 4:12 AM CDT 25 mg Given 02/14/2022 9:08 PM CDT 25 mg Given 02/14/2022 5:56 PM CDT 25 mg HYDROmorphone (DILAUDID) injection 0.5 mg 0.5 mg, intravenous, Administer over 2 Minutes, Once, On 02/12/22 at 1700, For 1 dose Given 02/12/2022 4:38 PM CDT 0.5 mg HYDROmorphone (DILAUDID) injection 0.5 mg 0.5 mg, intravenous, Administer over 2 Minutes, Every 4 hours PRN, 2nd line for pain, Starting on Mon02/16/22 at 2015 Given 02/17/2022 2:56 AM CDT 0.5 m g Given 02/16/2022 8:52 PM CDT 0.5 mg HYDROmorphone (DILAUDID) injection 1 mg 1 mg, intravenous, Administer over 2 Minutes, Once, On Mon02/16/22 at 1530, For 1 dose Given 02/16/2022 3:01 PM CDT 1 mg insulin glargine (LANTUS, SEMGLEE) 100 unit/mL injection 33 Units 33 Units (rounded from 32.55 Units = 0.25 Units/kg ? 130.2 kg), subcutaneous, Nightly, First dose on Mon02/10/22 at 0015, Do not hold if NPO. Do not mix with other insulins, Indications: Diabetes MellitusIndications:Diabetes Mellitus Given 02/16/2022 8:52 PM CDT 33 Units Right Upper Arm Given 02/15/2022 8:15 PM CDT 33 Units Le ft Lower Abdomen Given 02/14/2022 9:09 PM CDT 33 Units L eft Lower Abdomen insulin lispro (HumaLOG, ADMELOG) 100 unit/mL injection 0-10 Units 0-10 Units, subcutaneous, 3 times daily with meals, First dose on Mon02/10/22 at 0800, Blood glucose mg/dL: 149 or less: No insulin 150-199: add 2 unit 200-249: add 4 units 250-299: add 6 units 300-349: add 8 units and notify physician for adjustment of insulin orders. 350-399: add 10 units and notify physician for adjustment of insulin orders. Over 400: Notify physician for adjustment of insulin orders. Do NOT hold for NPO Status, Indications: Diabetes MellitusIndications:Diabetes Mellitus Given 02/12/2022 5:26 PM CDT 2 Units Left Upper Abdomen Given 02/12/2022 8:02 AM CDT 2 Units Le ft Lower Abdomen Given 02/11/2022 9:36 AM CDT 2 Units Le ft Upper Arm insulin lispro (HumaLOG, ADMELOG) 100 unit/mL injection 0-5 Units 0-5 Units, subcutaneous, Nightly, First dose on Mon02/09/22 at 2245, Blood glucose mg/dL: 149 or less: No [...] NPO Status, Indications: Diabetes MellitusIndications:Diabetes Mellitus Given 02/12/2022 9:02 PM CDT 1 Units Left Lower Abdomen Given 02/11/2022 8:58 PM CDT 3 Units Ri ght Lower Abdomen Given 02/10/2022 9:09 PM CDT 2 Units Le ft Lower Abdomen insulin lispro (HumaLOG, ADMELOG) 100 unit/mL injection 11 Units 11 Units (rounded from 10.8066 Units = 0.083 Units/kg ? 130.2 kg), subcutaneous, 3 times daily with meals, First dose on Mon02/10/22 at 0800, If BG greater than or equal to [...] 70 mg/dL., Indications: Diabetes MellitusIndications:Diabetes Mellitus Given 02/17/2022 9:03 AM CDT 11 Units Left Lower Abdomen Given 02/16/2022 5:26 PM CDT 11 Units Le ft Upper Abdomen Given 02/15/2022 4:44 PM CDT 11 Units Le ft Lower Abdomen ioversoL (OPTIRAY 350) syringe 100 mL 100 mL, intravenous, Once in imaging, contrast, Starting on Mon02/09/22 at 1732, For 1 dose Contrast Given 02/09/2022 5:33 PM CDT 100 mL Right Antecubital meropenem (MERREM) 500 mg in sodium chloride 0.9% 100 mL IVPB 500 mg, intravenous, at 200 mL/hr, Administer over 30 Minutes, Every 8 hours scheduled, First dose on 02/12/22 at 1400, For 5 days, Mini-Bag Plus bag, Indications: Urinary Tract/Genitourinary InfectionIndications: Urinary Tract/Genitourinary Infection New Bag 02/13/2022 5:52 AM CDT 500 mg 200 mL/hr New Bag 02/12/2022 9:14 PM CDT 500 mg 200 mL/hr New Bag 02/12/2022 2:22 PM CDT 500 mg 200 mL/hr meropenem (MERREM) 500 mg in sodium chloride 0.9% 100 mL IVPB 500 mg, intravenous, at 200 mL/hr, Administer over 30 Minutes, Every 6 hours scheduled, First dose (after last modification) on Mon02/13/22 at 1200, For 18 doses, Mini-Bag Plus bag, Indications: Urinary Tract/Genitourinary InfectionIndications:Urinary Tract/Genitourinary Infection New Bag 02/15/2022 11:59 AM CDT 500 mg 200 mL/hr New Bag 02/15/2022 12:11 AM CDT 500 mg 200 mL/hr New Bag 02/14/2022 5:59 PM CDT 500 mg 200 mL/hr morphine injection 2 mg 2 mg, intravenous, Administer over 4 Minutes, Once, On Mon02/09/22 at 1650, For 1 dose Given 02/09/2022 5:41 PM CDT 2 mg morphine injection 2 mg 2 mg, intravenous, Administer over 4 Minutes, Every 4 hours PRN, other, breakthrough pain, Starting on Mon02/09/22 at 2250 Given 02/16/2022 6:43 PM CDT 2 mg Given 02/16/2022 2:14 PM CDT 2 mg Given 02/16/2022 10:10 AM CDT 2 mg nitrofurantoin monohydrate (MACROBID) capsule 100 mg 100 mg, oral, 2 times daily, First dose on Mon02/15/22 at 1800, For 3 days, Take with food, Indications: Urinary Tract/Genitourinary InfectionIndications:Urinary Tract/Genitourinary Infection Given 02/16/2022 7:55 AM CDT 100 mg Given 02/15/2022 5:31 PM CDT 100 mg ondansetron (ZOFRAN) injection 4 mg 4 mg, intravenous, Administer over 2 Minutes, Once, On Mon02/09/22 at 1650, For 1 dose Given 02/09/2022 5:38 PM CDT 4 mg ondansetron (ZOFRAN) injection 4 mg 4 mg, intravenous, Administer over 2 Minutes, Every 6 hours PRN, nausea, vomiting, if not tolerating PO, Starting on Mon02/09/22 at 2212, Indications: Nausea and VomitingIndications:Nausea and Vomiting Given 02/14/2022 6:25 AM CDT 4 mg Given 02/11/2022 8:15 PM CDT 4 mg ondansetron ODT (ZOFRAN-ODT) disintegrating tablet 4 mg 4 mg, oral, Every 6 hours PRN, nausea, vomiting, Starting on Mon02/09/22 at 2212, Indications: Nausea and VomitingIndications:Nausea and Vomiting Given 02/16/2022 7:55 AM CDT 4 mg Given 02/15/2022 1:16 PM CDT 4 mg Given 02/13/2022 10:43 AM CDT 4 mg phenazopyridine (URISTAT) tablet 99.5 mg 99.5 mg, oral, Once, On Mon02/09/22 at 1934, For 1 dose Given 02/09/2022 7:41 PM CDT 99.5 mg ramelteon (ROZEREM) tablet 8 mg 8 mg, oral, Nightly PRN, sleep, Starting on Mon02/09/22 at 2212, Indications: Sleep-Onset InsomniaIndications:Sleep-Onset Insomnia Given 02/15/2022 2:18 AM CDT 8 mg rivaroxaban (XARELTO) tablet 20 mg 20 mg, oral, Daily with dinner, First dose on Valeri 02/10/22 at 0015, Nurse to discontinue heparin infusion order and associated bolus at first administration of rivaroxaban using 'order condition met' order source. If patient is eating, administer doses of 15 mg or greater with food. If patient is not eating, still administer dose unless instructed differently by provider. , Indications: VTE Prophylaxis, Venous ThrombosisIndications:VTE Prophylaxis,Venous Thrombosis Given 02/16/2022 5:26 PM CDT 20 mg Given 02/15/2022 4:44 PM CDT 20 mg Given 02/14/2022 5:24 PM CDT 20 mg rOPINIRole (REQUIP) tablet 5 mg 5 mg, oral, Nightly, First dose on Valeri 02/10/22 at 2100, Patient Specific Bin Given 02/16/2022 8:51 PM CDT 5 mg Given 02/15/2022 7:05 PM CDT 5 mg Given 02/14/2022 9:08 PM CDT 5 mg sodium chloride 0.9% flush 0.5-20 mL 0.5-20 mL, intra-catheter, Every 8 hours scheduled, First dose on 02/09/22 at 2245, Flush volume based on line type and size. Given 02/16/2022 8:53 PM CDT 10 mL Given 02/16/2022 5:20 AM CDT 10 mL Given 02/15/2022 9:36 PM CDT 10 mL sodium chloride 0.9% flush 0.5-20 mL 0.5-20 mL, intra-catheter, As needed, line care, Starting on 02/09/22 at 2212, Flush volume based on line type and size. Flush before and after each use. sodium chloride 0.9% flush 5-10 mL 5-10 mL, intra-catheter, Every 8 hours scheduled, First dose on 02/13/22 at 0830, Flush volume based on line type, size, and protocol. Given 02/16/2022 8:53 PM CDT 10 mL Given 02/15/2022 9:38 PM CDT 10 mL Given 02/15/2022 12:34 PM CDT 10 mL sodium chloride 0.9% flush 5-10 mL 5-10 mL, intra-catheter, As needed, line care, with each use, Starting on 02/13/22 at 0751, Flush volume based on line type, size, and protocol. documented in this encounter Active and Recently Administered Medications Times are shown in CDT. Scheduled Medication Order 02/15/2022 02/16/2022 02/17/2022 albuterol HFA (PROVENTIL HFA,VENTOLIN HFA,PROAIR HFA) 90 mcg/actuation inhaler 2 puff 2 puff, inhalation, Every 6 hours while awake (respiratory medicine physician), First dose on Mon02/09/22 at 2245 1043 (Not Given - Provider: Jo Wilkerson, VIDEO AND SOUND RECORDER - Reason: Other - Comment: workload)1521 (Given - Provider: Jo Wilkerson, VIDEO AND SOUND RECORDER)2027 (Given - Provider: Paula Gonsalves, TABLE MACHINE OPERATOR) 0900 (Given - Provider: Grisel Solano, VIDEO AND SOUND RECORDER - Comment: CAT CALL)1437 (Given - Provider: Bianca Engle, VIDEO AND SOUND RECORDER)2029 (Given - Provider: Paula Gonsalves, TABLE MACHINE OPERATOR) 0920 (Given - Provider: Emilia Granados, EILEEN) amitriptyline (ELAVIL) tablet 25 mg 25 mg, oral, Nightly, First dose on Mon02/10/22 at 0015 2014 (Given - Provider: Taj Melton, NURIS) 205 (Given - Provider: Bubba Campbell, NURIS) diphenhydrAMINE (BENADRYL) injection 25 mg (COMPLETED) 25 mg, intravenous, Administer over 2 Minutes, Once, On Mon02/16/22 at 0945, For 1 dose 0911 (Given - Provider: Freda Green, NURIS) diphenhydrAMINE (BENADRYL) injection 50 mg (COMPLETED) 50 mg, intravenous, Administer over 2 Minutes, Once, On Mon02/15/22 at 1300, For 1 dose, Indications: allergic reaction, one time dose after meropenem 1233 (Given - Provider: Allie Saldivar, NURIS) HYDROmorphone (DILAUDID) injection 1 mg (COMPLETED) 1 mg, intravenous, Administer over 2 Minutes, Once, On Mon02/16/22 at 1530, For 1 dose 1501 (Given - Provider: Freda Green, NURIS) insulin glargine (LANTUS, SEMGLEE) 100 unit/mL injection 33 Units 33 Units (rounded from 32.55 Units = 0.25 Units/kg ? 130.2 kg), subcutaneous, Nightly, First dose on Valeri 02/10/22 at 0015, Do not hold if NPO. Do not mix with other insulins, Indications: Diabetes Mellitus 1646 (Not Given - Provider: Allie Saldivar RN - Reason: Other)2014 (Given - Provider: Taj Melton, NURIS) 2051 (Given - Provider: Bubba Campbell, NURIS) insulin lispro (HumaLOG, ADMELOG) 100 unit/mL injection 11 Units 11 Units (rounded from 10.8066 Units = 0.083 Units/kg ? 130.2 kg), subcutaneous, 3 times daily with meals, First dose on Valeri 02/10/22 at 0800, If BG greater than or equal to [...] less than 70 mg/dL., Indications: Diabetes Mellitus 0808 (Given - Provider: Allie Saldivar RN)1154 (Given - Provider: Allie Saldivar RN)1644 (Given - Provider: Allie Saldivar RN) 0756 (Not Given - Provider: Freda Green RN - Reason: Patient/family refused)1226 (Not Given - Provider: Freda Green RN - Reason: Patient/family refused)1726 (Given - Provider: Freda Green RN) 0903 (Given - Provider: Yesi Richardson) meropenem (MERREM) 500 mg in sodium chloride 0.9% 100 mL IVPB (CANCELED) 500 mg, intravenous, at 200 mL/hr, Administer over 30 Minutes, Every 6 hours scheduled, First dose (after last modification) on Cyril 02/13/22 at 1200, For 18 doses, Mini-Bag Plus bag, Indications: Urinary Tract/Genitourinary Infection 0011 (New Bag - Provider: Eric Stringer, NURIS)0444 (Not Given - Provider: Eric Stringer RN - Reason: Patient/family refused - Comment: Pt refused saying she might be allergic to the antibiotic)1159 (New Bag - Provider: Allie Saldivar RN)1632 (Not Given - Provider: Allie Saldivar RN - Reason: Patient/family refused) nitrofurantoin monohydrate (MACROBID) capsule 100 mg (CANCELED) 100 mg, oral, 2 times daily, First dose on Mon02/15/22 at 1800, For 3 days, Take with food, Indications: Urinary Tract/Genitourinary Infection 1731 (Given - Provider: Allie Saldivar RN) 0755 (Given - Provider: Freda Green, RN) rivaroxaban (XARELTO) tablet 20 mg 20 mg, oral, Daily with dinner, First dose on Mon02/10/22 at 0015, Nurse to discontinue heparin infusion order and associated bolus at first administration of rivaroxaban using 'order condition met' order source. If patient is eating, administer doses of 15 mg or greater with food. If patient is not eating, still administer dose unless instructed differently by provider. , Indications: VTE Prophylaxis, Venous Thrombosis 1644 (Given - Provider: Allie Saldivar RN) 1726 (Given - Provider: Freda Green, NURIS) rOPINIRole (REQUIP) tablet 5 mg 5 mg, oral, Nightly, First dose on Mon02/10/22 at 2100, Patient Specific Bin 1905 (Given - Provider: Allie Saldivar RN - Comment: pt requested early) 2050 (Given - Provider: Bubba Campbell, NURIS) sodium chloride 0.9% flush 0.5-20 mL(Linked Group 1) 0.5-20 mL, intra-catheter, Every 8 hours scheduled, First dose on Mon02/09/22 at 2245, Flush volume based on line type and size. 0444 (Given - Provider: Eric Stringer, NURIS)1400 (Canceled Entry - Provider: Allie Saldivar RN)2136 (Given - Provider: Taj Melton, NURIS) 0520 (Given - Provider: Taj Melton, NURIS)1312 (Not Given - Provider: Freda Green, NURIS - Reason: Other)2052 (Given - Provider: Bubba Campbell, NURIS) 0604 (Not Given - Provider: Bubba Campbell RN - Reason: Other) sodium chloride 0.9% flush 5-10 mL 5-10 mL, intra-catheter, Every 8 hours scheduled, First dose on Mon02/13/22 at 0830, Flush volume based on line type, size, and protocol. 0444 (Given - Provider: Eric Stringer RN)1234 (Given - Provider: Allie Saldivar RN)2138 (Given - Provider: Taj Melton, RN) 0520 (Not Given - Provider: Taj Melton RN - Reason: Other)1312 (Not Given - Provider: Freda Green RN - Reason: Other)2053 (Given - Provider: Bubba Campbell RN) 0604 (Not Given - Provider: Bubba Campbell RN - Reason: Other) PRN Medication Order 02/15/2022 02/16/2022 02/17/2022 acetaminophen (TYLENOL) tablet 650 mg 650 mg, oral, Every 4 hours PRN, 1st line for pain, fever, fever greater than 38.3 C, Starting on Mon02/09/22 at 2212, Indications: Fever, Pain 0443 (Given - Provider: Eric Stringer, NURIS)1218 (Given - Provider: Allie Saldivar RN) 1328 (Given - Provider: Freda Green, NURIS) Carrier Fluids for Secondary Infusion - 0.9% Sodium Chloride(Linked Group 1) 30 mL, intravenous, As needed, For priming tubing and/or flushing, Starting on Mon02/09/22 at 2212, 0-250 ml/hr to flush line after IV [...] UNABLE to swallow/take PO glucose/juice., Starting on Mon02/09/22 at 2212, After treatment for hypoglycemia, recheck BG followed [...] glucose less than 70 mg/dL, Starting on Mon02/09/22 at 2212, If patient is alert and able to [...] each episode of hypoglycemia., Indications: hypoglycemic disorder diphenhydrAMINE (BENADRYL) tab/cap 25 mg () 25 mg, oral, Every 4 hours PRN, itching, allergies, Starting on Mon02/14/22 at 1405, For 2 days 0412 (Given - Provider: Eric Stringer RN) glucagon injection 1 mg 1 mg, intramuscular, Every 30 min PRN, low blood sugar, blood glucose less than 70 mg/dL AND no IV access AND unable to take PO glucose/juice., Starting on Mon02/09/22 at 2212, After Glucagon is administered, position patient on [...] 1 mL SWFI. Use immediately following reconstitution. HYDROmorphone (DILAUDID) injection 0.5 mg 0.5 mg, intravenous, Administer over 2 Minutes, Every 4 hours PRN, 2nd line for pain, Starting on Mon02/16/22 at 2014 2051 (Given - Provider: Bubba Campbell, NURIS) 0256 (Given - Provider: Bubba Campbell RN) meclizine (ANTIVERT) tablet 25 mg 25 mg, oral, 3 times daily PRN, dizziness, Starting on Mon02/09/22 at 2212 morphine injection 2 mg (CANCELED) 2 mg, intravenous, Administer over 4 Minutes, Every 4 hours PRN, other, breakthrough pain, Starting on Mon02/09/22 at 2250 0432 (Given - Provider: Eric Stringer, NURIS)1317 (Given - Provider: Allie Saldivar RN)1732 (Given - Provider: Allie Saldivar RN)2135 (Given - Provider: Taj Melton RN) 0317 (Given - Provider: Taj Melton RN)1010 (Given - Provider: Freda Green, NURIS)1414 (Given - Provider: Freda Green, NURIS)1843 (Given - Provider: Freda Green, NURIS) ondansetron (ZOFRAN) injection 4 mg(Linked Group 3) 4 mg, intravenous, Administer over 2 Minutes, Every 6 hours PRN, nausea, vomiting, if not tolerating PO, Starting on Mon02/09/22 at 2212, Indications: Nausea and Vomiting 1316 (See Alternative - Provider: Allie Saldivar RN) 0755 (See Alternative - Provider: Freda Green, NUIRS) ondansetron ODT (ZOFRAN-ODT) disintegrating tablet 4 mg(Linked Group 3) 4 mg, oral, Every 6 hours PRN, nausea, vomiting, Starting on Mon02/09/22 at 2212, Indications: Nausea and Vomiting 1316 (Given - Provider: Allie Saldivar RN) 0755 (Given - Provider: Freda Green, NURIS) polyethylene glycol (MIRALAX) packet 17 g 17 g, oral, Daily PRN, constipation, Starting on Mon02/09/22 at 2212, Indications: constipation ramelteon (ROZEREM) tablet 8 mg 8 mg, oral, Nightly PRN, sleep, Starting on Mon02/09/22 at 2212, Indications: Sleep-Onset Insomnia 0218 (Given - Provider: Eric Stringer, NURIS) sodium chloride 0.9% flush 0.5-20 mL(Linked Group 1) 0.5-20 mL, intra-catheter, As needed, line care, Starting on Mon02/09/22 at 2212, Flush volume based on line type and size. Flush before and after each use. sodium chloride 0.9% flush 5-10 mL 5-10 mL, intra-catheter, As needed, line care, with each use, Starting on Mon02/13/22 at 0751, Flush volume based on line type, size, and protocol. Linked Groups Order Group 1: Saline lock IV (CANCELED) Routine, Once (Routine), On Mon02/09/22 at 2213, For 1 occurrence And sodium chloride 0.9% flush 0.5-20 mLJump to med 0.5-20 mL, intra-catheter, Every 8 hours scheduled, First dose on Mon02/09/22 at 2245, Flush volume based on line type and size. And sodium chloride 0.9% flush 0.5-20 mLJump to med 0.5-20 mL, intra-catheter, As needed, line care, Starting on Mon02/09/22 at 2212, Flush volume based on line type and size. Flush before and after each use. And Carrier Fluids for Secondary Infusion - 0.9% Sodium ChlorideJump to med 30 mL, intravenous, As needed, For priming tubing and/or flushing, Starting on Mon02/09/22 at 2212, 0-250 ml/hr to flush line after IV infusions when no maintenance IV ordered. Infuse 30mL at the same rate as the secondary infusion. Run as primary IV, not intended for KVO. Group 2: dextrose gel in packet 15 gJump to med 15 g, oral, Every 15 min PRN, low blood sugar, blood glucose less than 70 mg/dL, Starting on Mon02/09/22 at 2212, If patient is alert and able to [...] UNABLE to swallow/take PO glucose/juice., Starting on Mon02/09/22 at 2212, After treatment for hypoglycemia, recheck BG followed [...] 6 hours PRN, nausea, vomiting, Starting on Mon02/09/22 at 2212, Indications: Nausea and Vomiting Or ondansetron (ZOFRAN) injection 4 mgJump to med 4 mg, intravenous, Administer over 2 Minutes, Every 6 hours PRN, nausea, vomiting, if not tolerating PO, Starting on Mon02/09/22 at 2212, Indications: Nausea and Vomiting documented in this encounter Orders Medications Ordered That Tyler ht Not Have Been Administered Count Last Ordered Date First Ordered Date diphenhydrAMINE (BENADRYL) injection 25 mg 1 02/14/2022 lidocaine PF (XYLOCAINE) 10 mg/mL (1 %) preservative free injection 10-20 mg 1 02/13/2022 sodium chloride 0.9% flush 5-10 mL 1 2021 ciprofloxacin (CIPRO) tablet 500 mg 1 02/12 dextrose (D10W) 10% bolus 250 mL 1 02/10/20 dextrose gel in packet 15 g 1 02/09/2022 glucagon injection 1 mg 1 02/09/2022 meclizine (ANTIVERT) tablet 25 mg 1 022 meropenem (MERREM) 2,000 mg in sodium chloride 0.9% 100 mL IVPB 1 02/09/2022 polyethylene glycol (MIRALAX) packet 17 g 1 02/09/2022 sodium chloride 0.9% flush 0.5-20 mL 1 01/22 Lab Orders Without Results Count Last Ordered D ate First Ordered Date POCT GLUCOSE DEVICE 29 02/17/2022 02/11/20 Nursing Count Last Ordered Date First Orde red Date FOLLOW UP PRIMARY PHYSICIAN 1 02/17/2022 CONTINUOUS PULSE OXIMETRY 1 02/09/2022 WEIGH PATIENT 1 02/09/2022 Consult Count Last Ordered Date First Orde red Date IP CONSULT TO VASCULAR ACCESS TEAM 1 2021 IP CONSULT TO INFECTIOUS DISEASES 1 022 IV Count Last Ordered Date First Orde red Date SALINE LOCK IV 1 02/09/2022 Admission Count Last Ordered Date First Orde red Date ADMIT TO INPATIENT 1 02/09/2022 Transfer Count Last Ordered Date First Orde red Date ED TO FLOOR BED REQUEST 1 02/09/2022 Discharge Count Last Ordered Date First Orde red Date DISCHARGE PATIENT 1 02/17/2022 CORE MEASURES Count Last Ordered Date First Ord ered Date REASON FOR NO VTE PROPHYLAXIS AT ADMISSION 1 02/09/2022 documented in this encounter Additional Health Concerns Infection Onset Date Last Indicated Resolved Time COVID: Suspected 02/09/2022 02/09/2022 02/09/2022 5:40 PM CDT COVID19 02/09/2022 02/09/2022 02/15/2022 9:06 AM CDT COVID: Recovered 02/10/2022 02/10/2022 06/10/2022 3:05 AM 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 [address] [place] [address] Medical Oncologist/Animal Laboratory Technician Medical Oncology 10/23/17 [place] [id number] [facility] [address] [place] [address] Surgeon Orthopedic Surgery 10/23/17 [place] [id number] [facility] [address] [place] [address] Consulting Physician Pain Management 10/23/17 [place] [id number] [facility] [address] [place] [address] Referring Physician General Surgery 01/26/18 [place] [id number] [facility] [address] [place] [address] Consulting Physician Neurology 01/26/18 documented as of this encounter
--- OUTSIDE RECORDS SUMMARY | 2024-04-26 04:21 | XMS_ITS | Encounter Summary ---
Author Organization [facility] Healthcare Address [address] [place] [address] Care Team Providers Care Skein Inspector Name Role Phone Liu Jerez MD Unavailable Albert Corbin MD Unavailable [phone] Justen Gale MD Primary Care Provider Khris Arthur MD Unavailable [phone] Ko Melendez MD Unavailable [phone] John Paul Moyer MD Unavailable Annel Rod MD Unavailable Anali MARSHALL MD, Carlos M. Unavailable Reason for Visit * Reason Comments Urinary Frequency Encounter Details Date Type Department Care Team (Late st Contact Info) Description 10/29/2021 7:18 PM CDT - 10/30/2021 2:23 AM CDT Emergency [facility] Emergency Department [address] [place] [id number] Jeremías Sheppard MD [facility] [place] [address] Sepsis, due to unspecified organism, unspecified whether acute organ dysfunction present (HCC) (Primary Dx); Postoperative infection, unspecified type, initial encounter Discharge Disposition: Discharge to a short term hospital for IP Social History Tobacco Use Types Packs/Day Years [...] on file Legal Sex Female 12:24 AM [employer] Gender Identity Not on file Sexual Orientation Not on file documented as of this encounter Last Filed Vital Signs Vital Sign Reading Time Taken Comments Blood Pressure 153/96 10/30/2021 1:30 AM CDT Pulse 84 10/30/2021 1:30 AM CDT Temperature 36.8 ??C (98.3 ??F) 10/29/2021 9:42 PM CD T Respiratory Rate 17 10/30/2021 1:30 AM CDT Oxygen Saturation 94% 10/30/2021 1:30 AM CDT Inhaled Oxygen Concentration - - Weight 129.3 kg (285 lb) 10/29/2021 6:40 PM CDT Height 154.9 cm (5' 1 ) 10/29/2021 6:40 PM CDT Body Mass Index 53.85 10/29/2021 6:40 PM CDT documented in this encounter Medications [...] Disposition Code Departure Means Destination Discharge to a short term hospital for [facility] documented in this encounter ED Notes * Jeremías Sheppard MD - 10/29/2021 7:29 PM CDT HPI Chief Complaint Patient presents with ??? Urinary Frequency HPI 66yo female with pmhx of DM, HTN, CHF, PE/DVT on xarelto who presents with weakness. Pt states for the past few days she's felt very weak and shaky, checked her temp today and found it to be 105. Shehas been seen here multiple times for UTI sxs over the past couple months, treated with multiple poabx. She denies any cough, chest pain, sob, abd pain, nausea, vomiting. Pt also has a history of chronic axial low back pain and leg pain refractory to medical management, s/p T8-T9 laminectomy for placement of a dorsal column stimulation system and placement of the battery ([employer]) in the right lower lumbar region on 09/16/[address] Gregg at [facility]. She notes that she has had a wound to her R butt ock where the battery pack is which has been draining pus over the last few weeks. She had been evaluated for this by neurosurgery at [facility] ED last month and was discharged with instructions to observeit for now as her wbc had been normal at that time. Over the past few days she's had increased drainage from this site. She also notes worsening pain for the past week. Patient History: Patient Active Problem List Diagnosis Date Noted ??? Chest pain 09/12/2021 ??? 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) 08/01/2021 ??? care home (current) use 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 inhibitors 10/17/2019 ??? Thyroid nodule 08/07/2018 ??? Dyslipidemia ??? History of breast cancer ??? Intractable pain ??? CVA (cerebral vascular accident) (CMS/HCC) ([facility]) 01/24/2018 ??? Anxiety and depression 11/12/2017 ??? Uncontrolled type 2 diabetes mellitus with hyperglycemia, with long-term current use of insulin([facility]) 11/06/2017 ??? Allergy to drug 11/06/2017 ??? Dysuria 10/26/2017 ??? Acute left-sided low back pain with left-sided sciatica 10/23/2017 ??? Type 2 diabetes mellitus with neurologic complication, without long-term current use of insulin(CMS/HCC) ([facility]) 10/23/2017 ??? Hypertension 10/23/2017 ??? Long-term current use of opiate analgesic 10/23/2017 ??? Lumbosacral spondylosis without myelopathy 10/23/2017 ??? Radiculopathy, lumbosacral region 10/23/2017 ??? Spinal stenosis of lumbar region without neurogenic claudication 10/23/2017 ??? 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 ??? Type 2 diabetes mellitus without complication (CMS/HCC) ([facility]) ??? Constipation ??? Malignant neoplasm of upper-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 (CMS/HCC) ([facility]) 10/17/2017 ??? Cancer of overlapping sites of left female breast (CMS/HCC) ([facility]) 10/13/2017 ??? Chronic anticoagulation ??? Restless leg syndrome ??? Chest pressure 08/01/2017 ??? Positive blood culture 08/01/2017 ??? Hyponatremia 08/01/2017 ??? Diet-controlled diabetes mellitus (CMS/HCC) ([facility]) 08/01/2017 ??? LUL (obstructive sleep apnea) 08/01/2017 [...] drink ??? Frequency of Binge Drinking: Never Alcohol Use: Not At Risk ??? Frequency of Alcohol Consumption: Never ??? Average Number of Drinks: Patient does not drink ??? Frequency of Binge Drinking: Never Social History Social History Narrative ??? Not on file Review of Systems Review of Systems Constitutional: Positive for chills, fatigue and fever. Negative for activity change and appetite change. HENT: Negative for sore throat. Respiratory: Negative for cough and shortness of breath. Cardiovascular: Negative for chest pain. Gastrointestinal: Negative for abdominal pain, diarrhea, nausea and vomiting. Genitourinary: Negative for dysuria. Musculoskeletal: Negative for back pain. Skin: Negative for rash. Neurological: Negative for dizziness, syncope, weakness, light-headedness and headaches. Physical Exam ED Triage Vitals Temp Pulse Resp BP SpO2 10/29/21 1840 10/29/21 1840 10/29/21 1840 10/29/21 1840 10/29/21 1840 37.3 ??C (99.1 ??F) 116 22 138/77 95 % Temp src Heart Rate Source Patient Position BP Location FiO2 (%) 10/29/21 2142 10/29/21192910/29/21 19310/29/211929 -- Oral Monitor Lying Right arm Height Height Method Weight Weight Method 10/29/211839 -- 10/29/211839 -- 1.549 m (5' 1 ) 129.3 kg (285 lb) Physical Exam Vitals and nursing note [...] Conjunctiva/sclera: Conjunctivae normal. Cardiovascular: Rate and Rhythm: Regular rhythm. Tachycardia [...] range of motion and neck supple. Comments: Small wound to R buttock with surrounding inudration and erythema, no active drainage Skin: General: Skin is warm and dry. Neurological: General: No focal deficit present. Mental Status: She is alert and oriented to person, place, and time. Mental status is at baseline. Psychiatric: Mood and Affect: Mood normal. MDM MDM Medical Decision Making Clinical problems/dx: Karly Marques is a 66 y.o. female who presents with sepsis. ED Course -Patient seen and evaluated, available studies reviewed -Prior available records reviewed, triage notes reviewed. -Pt appears septic HR 110s, wbc 21. Reported fever of 105 at home, took tylenol before arrival here. Unknown infectious source at this time. Will start on vanc for now given buttock wound. -CT scan showing fat stranding surrounding the right lower back/buttock subcutaneous generator pack. Mild fat stranding tracks along the spinal stimulator lead, where it enters the spinal canal the level of T8.. At the site of the laminectomies at T7/T8 there is a 5.9 by 2.5 by 3.9 cm fluid collection with somewhat thick rim, which is equivocally enhancing. This fluid collection surrounds the spinal stimulator leads and approximates the dorsal spinal canal. While it is poorly assessed, there is no definitive evidence of fluid collection within the spinal canal. The fluid collection appears mildly decreased in size since 10/15/2021. Fat stranding surrounding the generator pack has increased from the prior exam ED Course as of 10/29/212236 Time: 10/30 2127 Comment: Anaphylactic to cephalosporins. Discussed with pharmacy, recommend aztreonam. Also given vanc By: Jeremías Sheppard MD -discussed case with [facility] Dr. Del Real, recommends transfer to [facility] ED for further evaluation. -TRANSFER TO [facility] ACCEPTED BY DR. LYN Final diagnoses: Sepsis, due to unspecified organism, unspecified whether acute organ dysfunction present (HCC) Postoperative infection, unspecified type, initial encounter Jeremías Sheppard MD 10/29/213 * Ovi Zamorano RN - 10/29/2021 6:37 PM CDT Pt c/o urinary frequency and having fever and chills states temp 105f states she took advil . Has been seen for the same sx recently documented in this encounter Plan of Treatment Not on file documented as of this encounter Procedures Procedure Name Priority Date/Time Associated Diagnosis Comments URINALYSIS AND REFLEX TO MICROSCOPIC AND CULTURE STAT 10/29/2021 8:40 PM CDT URINALYSIS, MICROSCOPIC ONLY STAT 10/29/2021 8:[address] ABDOMEN PELVIS W CONTRAST ED 10/29/2021 8:20 PM CDT ECG 12-LEAD Routine 10/29/2021 7:44 PM CDT INFLUENZA A/B, RSV, AND COVID-19 PCR Routine 10/29/2021 7:36 PM CDT BLOOD CULTURE STAT 10/29/2021 7:00 PM CDT SEPSIS LACTATE WITH REFLEX STAT 10/29/2021 6:51 PM CDT EGFR STAT 10/29/2021 6:51 PM CDT DIFFERENTIAL AUTO STAT 10/29/2021 6:5 1 PM CDT CBC WITH AUTO DIFFERENTIAL STAT 10/29/2021 6:51 PM CDT BLOOD CULTURE STAT 10/29/2021 6:51 PM CDT COMPREHENSIVE METABOLIC PANEL STAT 10/29/2021 6:51 PM CDT documented in this encounter Results * Urinalysis, microscopic only (10/29/2021 8:40 PM CDT) WBC, ur 0-5 0 - 5 /HPF [facility] Comment:Testing performed by : [address] [address] RBC, ur 0-2 0 - 2 /HPF [facility] Comment:Testing performed by : [address] [address] Culture Reflex Comment Reflex conditions for urine culture (WBC >10) not met. [facility] Comment:Testing performed by : [address] [address] Urine 10/29/2021 8:40 PM CDT 10/29/2021 8:44 PM CDT us Melvin Sy MD LAB URINE ORDERABLES F inal Result [facility] [address] [facility] Department [place] [address] * (ABNORMAL) Urinalysis reflex to microscopic and culture Urine (10/29/2021 8:40 PM CDT) Color, ur Yellow Yellow [facility] Comment:Testing performed by : [address] [address] Clarity, ur Clear Clear [facility]ANE Comment:Testing performed by : [address] [address] Specific gravity, ur <1.005 1.003 - 1.030 [facility] Comment:Testing performed by : [address] [address] pH, urine 6.0 MARY JANE Comment:Testing performed by : [address] [address] Protein, ur ql Negative Negative M[facility]ANE Comment:Testing performed by : [address] [address] Glucose, ur ql Negative Negative [facility] Comment:Testing performed by : [address] [address] Ketones, ur Negative Negative [facility] Comment:Testing performed by : [address] [address] Bilirubin, ur Negative Negative M[facility] Comment:Testing performed by : [address] [address] Blood, ur Trace(A) Negative M[facility] Comment:Testing performed by : [address] [address] Urobilinogen, ur 0.2 <2.0 mg/dL M[facility]ANE Comment:Testing performed by : [address] [address] Nitrite, ur Negative Negative M[facility]ANE Comment:Testing performed by : [address] [address] Leukocyte esterase, ur Negative Negative MARY JANE Comment:Testing performed by : [facility], [address] [place] [address]., [address] UA reflex comment Reflex to microscopic UA will be performed. MARY JANE Comment:Testing performed by : [facility], [address] [place] [address]., [address] Urine 10/29/2021 8:40 PM CDT 10/29/2021 8:44 PM CDT Narrative MARY JANE - 10/29/2021 9:10 PM CDT ?? Urine pH is affected by diet, medications, systemic acid-base disturbances, and renal tubular function. ??pH may affect urinary stone formation. ??For example, urine pH below 6.0 may help reduce the tendency for calcium phosphate stones and pH greater than 6.0 may reduce the tendency for uric acid stone formation. Source: Jerez Prowl. Last revised 05-04-2017 us Melvin Sy MD LAB MICROBIOLOGY - GEN ERAL ORDERABLES Final Result [facility]ANE [address] [facility] Department [place] [address] * CT Abdomen Pelvis W Contrast (10/29/2021 8:20 PM CDT) Anatomical Region Laterality Modality Body N/A Computed Tomogra phy 10/29/2021 8:34 PM CDT Narrative 10/29/2021 9:01 PM CDT EXAM DESCRIPTION: ?? CT ABDOMEN [...] ??Fat stranding surrounding the generator pack has increased from the prior exam Sequela of sacroiliitis is [...] or infected. ??Recommend correlation with surgical history. THIS IS AN ELECTRONICALLY VERIFIED FINAL REPORT 10/29/2021 9:01 PM - Electronically signed by ??Wilfrid Valdez M.D. MZ: FAUSTINA D: ??10/29/2021 9:01 PM T: ??10/29/2021 9:01 PM Report ID: [id number] Reading Location: ??[id number] Procedure Note Wilfrid Valdez MD - 10/29/2021 EXAM DESCRIPTION: CT ABDOMEN PELVIS W CONTRAST REASON FOR STUDY: Sepsis, draining wound possible abscess rightbuttock,. Sepsis with leukocytosis Urinary frequency and having [...] MG IODINE/ML INTRAVENOUSSYRINGE injected via intravenous COMPARISON: 10/15/2021 FINDINGS: LOWER CHEST: There is mitral annulus calcification. There are multiple stable small pulmonary nodules at the left lung base,noncalcified, measuring up to 5 mm. LIVER: Normal size. No identified cystic or solid masses. GALLBLADDER: Surgically absent. BILE DUCTS: No intrahepatic or extrahepatic ductal dilatation. SPLEEN: Normal size. No focal lesions. PANCREAS: No identified cystic or solid masses. No significant calcifications. No adjacent inflammation or peripancreatic fluidcollections. Pancreatic duct not dilated. ADRENALS: Normal. KIDNEYS/URINARY TRACT: There is a cyst in the right kidney. Nosuspicious mass in the left kidney. There is no hydronephrosis or renal stone. Urinary bladder is unremarkable. GI: The colon is normal in course and in caliber and without wallthickening or evidence of obstruction. There are scattered diverticula withoutevidence of acute diverticulitis.. The appendix appears normal. The distalesophagus and stomach appear unremarkable.. The small bowel appears normal. PERITONEUM: No ascites or free air. RETROPERITONEUM: No mass or adenopathy. REPRODUCTIVE: No significant abnormality. VASCULATURE: No abdominal aortic aneurysm. MUSCULOSKELETAL: There is fat stranding surrounding the right lower back/buttock subcutaneous generator pack. Mild fat stranding tracks alongthe spinal stimulator lead, where it enters the spinal canal the level of T8..At the site of the laminectomies at T7/T8 there is a 5.9 by 2.5 by 3.9 cmfluid collection with somewhat thick rim, which is equivocally enhancing. This fluid collection surrounds the spinal stimulator leads and approximatesthe dorsal spinal canal. While it is poorly assessed, there is no definitive evidence of fluid collection within the spinal canal. The fluidcollection appears mildly decreased in size since 10/15/2021. Fat strandingsurrounding the generator pack has increased from the prior exam Sequela of sacroiliitis is redemonstrated. 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 No acute fracture or aggressive bone lesion is identified.There are degenerative changes in the visualized spine. OTHER: There is change from ventral abdominal hernia repair withmultiple clips. IMPRESSION: Increased fat stranding surrounding the generator pack in the subcutaneous right lower back/buttocks extending to the skin surface with skinthickening, suspicious for inflammation or cellulitis.. Mild fat stranding tracksalong the spinal stimulator lead. 5.9 x 2.5 x 3.9 cm fluid collection at thesite of the thoracic laminectomies surrounding the distal aspect of the spinal stimulator leads with equivocal rim enhancement. This fluid collectioncould be sterile/postoperative or infected. Recommend correlation with surgical history. THIS IS AN ELECTRONICALLY VERIFIED FINAL REPORT 10/29/2021 9:01 PM - Electronically signed by Wilfrid Valdez M.D. MZ: FAUSTINA Report ID: [id number] Reading Location: [place] [address] us Jeremías Sheppard MD IMG CT PROCEDURES Final Resul t * ECG 12 lead (10/29/2021 7:44 PM CDT) Pathologist [facility] Ventricular Rate EKG/Min 95 BPM [facility] Atrial Rate 95 BPM [facility] MT-Interval (MSEC) 116 ms [facility] QRS-Interval (MSEC) 82 ms [facility] QT-Interval (MSEC) 354 ms [facility] QTc 444 ms [facility] P [place] 58 degrees [facility] R [place] -10 degrees [facility] T [place] 42 degrees [facility] Diagnosis Normal sinus rhythm Normal ECG When compared with ECG of 14-SEP-2021 09:04, Questionable change in QRS axis [facility] 10/29/2021 7:44 PM CDT 11/01/2021 1:54 PM CDT us Jeremías Sheppard MD ECG ORDERABLES Final Result [facility] * Influenza A/B, RSV, and COVID-19 PCR Nasopharyngeal (10/29/2021 7:36 PM CDT) [facility] COVID-19 RNA Negative Negative [facility] Comment:Testing performed by : [address] [address] Influenza A RNA Negative Negative [facility] Comment:Testing performed by : [address] [address] Influenza B RNA Negative Negative [facility] Comment:Testing performed by : [address] [address] RSV RNA Negative Negative [facility] Comment: Interpretive data: This test is performed using the TopiVerter[employer] Xpress CoV-2/Flu/RSV plus assay. This is a [...] Data last revised 2021. Testing performed by: [address] [address] Nasopharyngeal 10/29/2021 7: 36 PM CDT 10/29/2021 7:40 PM CDT Narrative MARY JANE - 10/29/2021 8:20 PM CDT Is the Patient experiencing symptoms consistent with COVID?->Yes Date of Symptom Onset->10/29/21 Reason for testing?->Symptomatic Jeremías Sheppard MD LAB MICROBIOLOGY - GENERAL OR DERABLES Final Result M[facility]ANE [address] [facility] Department [place] [address] * (ABNORMAL) Blood culture Blood (10/29/2021 7:00 PM CDT) Direct Specimen Exam Stain: Gram Positive Bacilli Time to culture positivity (aerobic media): 22.3 hours Notification of: Gram Positive Bacilli called to and read back by: Darcy Wahl MT ([phone]) on 10/30/2021 21:21:37 by: NBA Knight Comment:Testing performed by : [facility], [address] [place] [address]., [id number] Report Final Report: Corynebacterium aurimucosum / minutissimum Single blood culture positive for this microorganism. ??Isolate is a possible contaminant. If a similar isolate is recovered from a second blood culture collected within 3 days of this culture, both will be evaluated and, if determined to be the same species, antimicrobial susceptibility testing will be performed. (.) [facility]ANE Comment:Testing performed by : [facility], [address] [place] [address]., [address] Organism CORYNEBACTERIUM AURIMUCOSUM / MINUTISSIMUM [facility] Blood 10/29/2021 7:00 PM CDT 10/29/2021 10:19 PM CDT Narrative MARY JANE - 11/03/2021 2:38 PM CDT From a different site than #1. Called positive results of gram positive bacilli in the aerobic bottle to NURIS [facility]er /ED @2124 by [email or web address] 10/30/2021. please fax results to [facility] or phone [phone] 1. ?Blood cultures are incubated for 4 [...] organism identification may be performed using the Quivid[employer]igene Gram-Positive Blood Culture Assay. This assay detects microbial DNA in positive blood culture broth via hybridization of target DNA to capture oligonucleotides on a microarray. This assay has been cleared by the [place] Food and Drug Administration and its performance characteristics have been verified by the [facility]. 5. ?For questions about this culture, contact the Microbiology Laboratory at [phone]. Interpretive data was last revised on 2019. Melvin Sy MD LAB MICROBIOLOGY - GEN ERAL ORDERABLES Final Result MARY JANE [address] [facility] Department [place] [address] * eGFR (10/29/2021 6:51 PM CDT) [facility] eGFR 96 mL/min/1. 73 m2 MARY JANE [...] last reviewed 2021. Testing performed by: [address] [address] Blood 10/29/2021 6:51 PM CDT 10/29/2021 6:56 PM CDT us Melvin Sy MD LAB BLOOD ORDERABLES F inal Result MARY JANE [address] [facility] Department [place] [address] * (ABNORMAL) Differential, auto (10/29/2021 6:51 PM CDT) Neutrophil abs 18.9(H) 1.7 - 6.5 K/cumm [facility] Comment:Testing performed by : [address] [address] Imm gran abs 0.2(H) 0.0 - 0.1 K/cumm MARY [facility]ANE Comment:Testing performed by : [address] [address] Lymphocyte abs 1.5 0.8 - 3.3 K/cumm MARY JANE Comment:Testing performed by : [address] [address] Monocyte abs 1.2(H) 0.2 - 0.8 K/cumm [facility] Comment:Testing performed by : [address] [address] Eosinophil abs 0.1 0.0 - 0.5 K/cumm [facility] Comment:Testing performed by : [address] [address] Basophil abs 0.1 0.0 - 0.1 K/cumm [facility] Comment:Testing performed by : [address] [address] Neutrophil pct 86.2 % [facility] Comment: Interpretive Data Percent cell count reference ranges are not reported, since discordance with absolute values may lead to misinterpretation of CBC data. Current Interpretive Data was last revised on 2017. Testing performed by: [address] [address] Imm gran pct 0.8 % [facility] Comment: Interpretive Data Percent cell count reference ranges are not reported, since discordance with absolute values may lead to misinterpretation of CBC data. Current Interpretive Data was last revised on 2017. Testing performed by: [address] [address] Lymphocyte pct 6.9 % [facility] Comment: Interpretive Data Percent cell count reference ranges are not reported, since discordance with absolute values may lead to misinterpretation of CBC data. Current Interpretive Data was last revised on 2017. Testing performed by: [address] [address] Monocyte pct 5.6 % [facility] Comment: Interpretive Data Percent cell count reference ranges are not reported, since discordance with absolute values may lead to misinterpretation of CBC data. Current Interpretive Data was last revised on 2017. Testing performed by: [address] [address] Eosinophil pct 0.3 % [facility] Comment: Interpretive Data Percent cell count reference ranges are not reported, since discordance with absolute values may lead to misinterpretation of CBC data. Current Interpretive Data was last revised on 2017. Testing performed by: [facility], [address] [place] [address]., [address] Basophil pct 0.2 % [facility] PH[facility] Comment: Interpretive Data Percent cell count reference ranges are not reported, since discordance with absolute values may lead to misinterpretation of CBC data. Current Interpretive Data was last revised on 2017. Testing performed by: [facility], [address] [place] [address]., [address] Blood 10/29/2021 6:51 PM CDT 10/29/2021 6:55 PM CDT us Melvin Sy MD LAB BLOOD ORDERABLES F inal Result MARY JANE PHAM [address] [facility] Department [place] [address] * Blood culture Blood (10/29/2021 6:51 PM CDT) Report Final Report: No growth MARY JANE PHAM Comment:Testing performed by : [facility], [address] [facility], [place]., [address] Blood 10/29/2021 6:51 PM CDT 10/29/2021 10:19 PM CDT Narrative MARY JANE PHAM - 11/03/2021 7:00 AM CDT 1. ?Blood cultures are [...] organism identification may be performed using the Quividiigene Gram-Positive Blood Culture Assay. This assay detects microbial DNA in positive blood culture broth via hybridization of target DNA to capture oligonucleotides on a microarray. This assay has been cleared by the [place] Food and Drug Administration and its performance characteristics have been verified by the [facility] Microbiology Laboratory. 5. ?For questions about this culture, contact the Microbiology Laboratory at [phone]. Interpretive data was last revised on 2019. Melvin Sy MD LAB MICROBIOLOGY - GEN ERAL ORDERABLES Final Result Performing Organization Address City/[facility]/ZIP Co de Phone Number MARY JANE [address] [place] [address] * Sepsis Lactate w/ Reflex (10/29/2021 6:51 PM CDT) Pathologist [facility] Sepsis Lactate 1.8 0.7 - 2.0 mmol/L MARY JANE Comment:Testing performed by : [address] [address] Blood 10/29/2021 6:51 PM CDT 10/29/2021 6:56 PM CDT Melvin Sy MD LAB BLOOD ORDERABLES F inal Result Performing Organization Address [facility] Co de Phone Number MARY JANE [address] [address] * (ABNORMAL) Comprehensive metabolic panel (10/29/2021 6:51 PM CDT) Pathologist [facility] Sodium 131(L) 135 - 145 mmol/L MARY JANE Comment:Testing performed by : [address] [address] Potassium, pl 4.2 3.3 - 4.9 mmol/L MARY JANE Comment:Testing performed by : [address] [address] Chloride 96(L) 97 - 110 mmol/L MARY JANE Comment:Testing performed by : [address] [place]., [address] CO2 24 22 - 32 mmol/L [facility] Comment:Testing performed by : [address] [address] Anion gap 11 2 - 15 mmol/L MARY JANE Comment:Testing performed by : [address] [address] BUN 17 8 - 25 mg/dL MARY JANE Comment:Testing performed by : [address] [address] Creatinine 0.70 0.60 - 1.10 mg/dL [facility] Comment:Testing performed by : [address], [place]., [address] Glucose 294(H) 70 - 199 mg/dL [facility] Comment: Interpretive Data Fasting glucose >/= 126 [...] last revised 2017. Testing performed by: [address] [address] Calcium 9.9 8.5 - 10.3 mg/dL MARY JANE Comment:Testing performed by : [address] [address] Bilirubin, total 1.0 0.1 - 1.2 mg/dL [facility] Comment:Testing performed by : [address] [address] Protein, pl 8.4 6.5 - 8.5 g/dL MARY JANE Comment:Testing performed by : [address] [address] Albumin 3.9 3.5 - 5.0 g/dL MARY JANE Comment:Testing performed by : [address] [address] Alk phos 94 40 - 130 Units/L MARY JANE [facility] Comment:Testing performed by : [address] [address] ALT 15 7 - 45 Units/L MARY JANE [facility] Comment:Testing performed by : [address] [address] AST 13 10 - 45 Units/L MARY JANE [facility] Comment:Testing performed by : [address] [address] Blood 10/29/2021 6:51 PM CDT 10/29/2021 6:56 PM CDT us Melvin Sy MD LAB BLOOD ORDERABLES F inal Result MARY JANE [facility] Department [place] [address] * (ABNORMAL) CBC with auto differential (10/29/2021 6:51 PM CDT) WBC 21.9(H) 3.8 - 9.9 K/cumm MARY JANE [facility] Comment:Testing performed by : [address] [address] Hgb 13.8 11.9 - 15.5 g/dL MARY JANE [facility] Comment:Testing performed by : [address] [address] Hct 43.2 35.6 - 45.5 % MARY JANE [facility]AM Comment:Testing performed by : [address] [address] Plt 321 150 - 400 K/cumm MARY JANE [facility] Comment:Testing performed by : [address] [address] MPV 9.6 9.1 - 12.3 fL MARY JANE [facility] Comment:Testing performed by : [address] [address] RBC 4.79 3.90 - 5.20 M/cumm MARY JANE [facility] Comment:Testing performed by : [address] [address] MCV 90.2 81.3 - 96.4 fL MARY JANE [facility] Comment:Testing performed by : [address] [address] MCH 28.8 27.1 - 33.3 pg MARY JANE PHAM Comment:Testing performed by : [address] [address] MCHC 31.9(L) 32.3 - 35.7 g/dL MARY JANE PHAM Comment:Testing performed by : [address], [address] RDW CV 13.7 11.1 - 14.9 % MARY JANE PHAM Comment:Testing performed by : [address], [address] RDW SD 45.4 35.7 - 48.1 fL MARY JANE Comment:Testing performed by : [address] [address] NRBC abs 0.00 0.00 - 0.01 K/cumm MARY JANE Comment:Testing performed by : [address], [address] Blood 10/29/2021 6:51 PM CDT 10/29/2021 6:55 PM CDT Melvin Sy MD LAB BLOOD ORDERABLES F inal Result [facility] [address] [facility] Department [place] [address] documented in this encounter Visit Diagnoses Diagnosis Sepsis, due to unspecified organism, unspecified whether acute organ dysfunction present (HCC)- Primary Postoperative infection, unspecified type, initial encounter documented in this encounter Administered Medications Inactive Administered Medications - up to 3 most recent administrations Medication Order MAR Action Action Date Dose Rate Site acetaminophen (TYLENOL) tablet 975 mg 975 mg (rounded from 1,000 mg), oral, Once, On Mon10/29/21 at 1945, For 1 dose Given 10/29/2021 7:54 PM CDT 975 mg aztreonam (AZACTAM) 2,000 mg in sodium chloride 0.9% 100 mL IVPB 2,000 mg, intravenous, at 300 mL/hr, Administer over 20 Minutes, Once, On Mon10/29/21 at 2200, For 1 dose, Mini-Bag Plus bag, Indications: Other (complete free text reason below), sepsis, skin/soft tissue from spinal procedureIndications:Othe r (complete free text reason below),sepsis, skin/soft tissue from spinal procedure New Bag 10/29/2021 10:23 PM CDT 2,000 mg 300 mL/hr ioversoL (OPTIRAY 350) syringe syringe 100 mL 100 mL, intravenous, Once in imaging, contrast, Starting on Mon10/29/21 at 2009, For 1 dose Contrast Given 10/29/2021 8:14 PM CDT 100 mL Lactated Ringer's (LR) bolus 500 mL 500 mL, intravenous, Once, On Mon10/29/21 at 2131, For 1 dose New Bag 10/29/2021 9:45 PM CDT 500 mL Lactated Ringer's (LR) infusion 1,000 mL 1,000 mL, intravenous, Continuous, Starting on Mon10/29/21 at 1844 New Bag 10/29/2021 8:38 PM CDT 1,000 mL New Bag 10/29/2021 7:32 PM CDT 1,000 mL morphine injection 4 mg 4 mg, intravenous, Administer over 4 Minutes, Once, On Mon10/29/21 at 2227, For 1 dose Given 10/29/2021 10:32 PM CDT 4 mg ondansetron (ZOFRAN) injection 4 mg 4 mg, intravenous, Administer over 2 Minutes, Once, On Mon10/29/21 at 2105, For 1 dose Given 10/29/2021 9:05 PM CDT 4 mg vancomycin 2,000 mg/520 mL in sodium chloride 0.9% (premix) 2,000 mg 2,000 mg (rounded from 1,939.5 mg = 15 mg/kg ? 129.3 kg), intravenous, Administer over 120 Minutes, Once, On Mon10/29/21 at 2015, For 1 dose, Indications: Sepsis, Skin/Soft Tissue InfectionIndications:Sepsis,Skin/Soft Tissue Infection New Bag 10/29/2021 7:51 PM CDT 2,000 mg documented in this encounter Active and Recently Administered Medications Times are shown in CDT. Scheduled Medication Order 10/28/2021 10/29/2021 10/30/2021 acetaminophen (TYLENOL) tablet 975 mg (COMPLETED) 975 mg (rounded from 1,000 mg), oral, Once, On Mon10/29/21 at 1945, For 1 dose 1953 (Given - Provider: Yanni Durán RN) aztreonam (AZACTAM) 2,000 mg in sodium chloride 0.9% 100 mL IVPB (COMPLETED) 2,000 mg, intravenous, at 300 mL/hr, Administer over 20 Minutes, Once, On Mon10/29/21 at 2200, For 1 dose, Mini-Bag Plus bag, Indications: Other (complete free text reason below), sepsis, skin/soft tissue from spinal procedure 2222 (New Bag - Provider: Davian Durán RN)230 (Stopped - Provider: Melani Durán RN) Lactated Ringer's (LR) bolus 500 mL (COMPLETED) 500 mL, intravenous, Once, On Mon10/29/21 at 213, For 1 dose 2144 (New Bag - Provider: Davian Durán RN)233 (Stopped - Provider: Sahil Heart RN) morphine injection 4 mg (COMPLETED) 4 mg, intravenous, Administer over 4 Minutes, Once, On Mon10/29/21 at 222, For 1 dose 2231 (Given - Provider: Yanni Durán RN) ondansetron (ZOFRAN) injection 4 mg (COMPLETED) 4 mg, intravenous, Administer over 2 Minutes, Once, On Mon10/29/21 at 2105, For 1 dose 2104 (Given - Provider: Yanni Durán RN) vancomycin 2,000 mg/520 mL in sodium chloride 0.9% (premix) 2,000 mg (COMPLETED) 2,000 mg (rounded from 1,939.5 mg = 15 mg/kg ? 129.3 kg), intravenous, Administer over 120 Minutes, Once, On Mon10/29/21 at 2015, For 1 dose, Indications: Sepsis, Skin/Soft Tissue Infection 1950 (New Bag - Provider: Davian Durán RN)2220 (Stopped - Provider: Melani Durán RN) Continuous Medication Order 10/28/2021 10/29/2021 10/30/2021 Lactated Ringer's (LR) infusion 1,000 mL 1,000 mL, intravenous, Continuous, Starting on Mon10/29/21 at 1844 1932 (New Bag - Provider: Davian Durán, NURIS)2037 (New Bag - Provider: Melani Durán, NURIS)2038 (Stopped - Provider: Melani Durán, RN) PRN Medication Order 10/28/2021 10/29/2021 10/30/2021 ioversoL (OPTIRAY 350) syringe syringe 100 mL (COMPLETED) 100 mL, intravenous, Once in imaging, contrast, Starting on Mon10/29/21 at 2009, For 1 dose 2013 (Contrast Given - Provider: Corinna Villareal RT) documented in this encounter Orders Medications Ordered That Tyler ht Not Have Been Administered Count Last Ordered Date First Ordered Date ertapenem (INVanz) 1,000 mg in sodium chloride 0.9% 100 mL IVPB 1 10/29/2021 ondansetron (ZOFRAN) 4 mg/2 mL injection - ADS Override Pull 1 10/29/2021 Nursing Count Last Ordered Date First Orde red Date CARDIO RESPIRATORY MONITORING 1 10/29/2021 CONTINUOUS PULSE OXIMETRY 1 10/29/2021 NURSING COMMUNICATION 1 10/29/2021 STRAIGHT CATH 1 10/29/2021 IV Count Last Ordered Date First Orde red Date SALINE LOCK IV 1 10/29/2021 documented in this encounter Additional Health Concerns Infection Onset Date Last Indicated Resolved Time COVID: Suspected 10/29/2021 10/29/2021 10/29/2021 8:21 PM CDT documented as of this encounter Care Teams Skein Inspector Relationship Specialty Start Date End Date Justen Gale MD 2 [facility] [address] [place] [address] PCP - General 10/09/17 Liu Jerez MD Consulting Physician Gastroenterology 07/28/17 [place] [address] [facility] [address] [place] [address] Consulting Physician Pulmonary Disease 08/03/17 [place] [address] [place] [address] [address] [place] [address] Medical Oncologist/Application Integration Architect Medical Oncology 10/23/17 [place] [address] [address] Surgeon Orthopedic Surgery 10/23/17 [place] [address] [address] Consulting Physician Pain Management 10/23/17 [place] [address] [facility] [address] [place] [address] Referring Physician General Surgery 01/26/18 [place] [address] [facility] [address] [place] [address] Consulting Physician Neurology 01/26/18 documented as of this encounter
--- OUTSIDE RECORDS SUMMARY | 2024-04-26 04:22 | XMS_ITS | Encounter Summary ---
Author Organization [facility] Address [address] [place] [address] Phone Care Team Providers Care Field Observer Name Role Phone Liu Jerez MD Unavailable Albert Corbin MD Unavailable Justen Gale MD Primary Care Provider Khris Arthur MD Unavailable [phone] Ko Melendez MD Unavailable John Paul Moyer MD Unavailable Annel Rod MD Unavailable Anali MARSHALL MD, Carlos M. 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 Gender Identity Not on file Sexual Orientation Not on file documented as of this encounter Plan of Treatment Not on file documented as of this encounter Procedures Procedure Name Priority Date/Time Associated Diagnosis Comments SCAN - RADIOLOGY/IMAGING 12/01/2020 documented in this encounter Results * SCAN - RADIOLOGY/IMAGING (12/01/2020) Anatomical Region Laterality Modality Other us Provider Scanning Final Result documented in this encounter Visit Diagnoses Not on filedocumented in this encounter Additional Health Concerns Infection Onset Date Last Indicated Resolved Time COVID: Suspected 10/15/2021 10/15/2021 10/15/2021 4:33 PM CDT COVID: Suspected 10/29/2021 10/29/2021 10/29/2021 8:21 PM CDT COVID: Suspected 12/22/2021 12/22/2021 12/22/2021 9:03 PM CDT COVID: Suspected 02/09/2022 02/09/2022 02/09/2022 5:40 PM CDT COVID19 02/09/2022 02/09/2022 02/15/2022 9:06 AM CDT COVID: Recovered 02/10/2022 02/10/2022 06/10/2022 3:05 AM SAW OFFBEARER Exposure, COVID-19 Comment:Added automatically based on COVID19 lab answers indicating exposure risk 02/11/2022 02/11/2022 02/15/2022 9:06 AM C DT COVID: Suspected 05/14/2022 05/14/2022 05/14/2022 10:41 AM SAW OFFBEARER COVID: Suspected 06/07/2022 06/07/2022 06/07/2022 12:28 PM SAW OFFBEARER COVID: Suspected 06/21/2022 06/21/2022 06/21/2022 2:12 AM SAW OFFBEARER COVID: Suspected 10/05/2022 10/05/2022 10/05/2022 7:40 PM CDT COVID: Suspected 01/04/2024 01/04/2024 01/04/2024 10:30 PM CDT COVID: Suspected 02/14/2024 02/14/2024 02/15/2024 12:36 AM CDT documented as of this encounter Care Teams Field Observer Relationship Specialty Start Date End Date Justen Gale MD 2 [facility] [address] [place] [address] PCP - General 10/09/17 Liu Jerez MD Consulting Physician Gastroenterology 07/28/17 [place] [address] [facility] [address] [place] [address] Consulting Physician Pulmonary Disease 08/03/17 Khris Arthur MD 49[address] [facility] [address] [place] [address] Medical Oncologist/Machine Installer Medical Oncology 10/23/17 [place] [address] [facility] [address] [place] [address] Surgeon Orthopedic Surgery 10/23/17 [place] [address] [facility] [address] [place] [address] Consulting Physician Pain Management 10/23/17 [place] [address] [facility] [address] [place] [address] Referring Physician General Surgery 01/26/18 [place] [address] [facility] [address] [place] [address] Consulting Physician Neurology 01/26/18 documented as of this encounter
--- OUTSIDE RECORDS SUMMARY | 2024-04-26 04:22 | XMS_ITS | Encounter Summary ---
Author Organization [facility] Address [address] [place] [address] Phone Care Team Providers Care Teacher Counselor Name Role Phone Liu Jerez MD Unavailable Albert Corbin MD Unavailable Justen Gale MD Primary Care Provider Khris Arthur MD Unavailable [phone] Ko Melendez MD Unavailable [phone] John Paul Moyer MD Unavailable [phone] Annel Rod MD Unavailable Anali MARSHALL MD, Carlos M. Unavailable [phone] Encounter Details Date Type Department Care Team (Late st Contact Info) Description 01/05/2021 Orders Only [facility] Oncology [address] 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 Testing performed by: [facility], [address] [place] [phone] Chloride 99 97 - 110 mmol/L [facility] Comment:Testing performed by : [address] [phone] CO2 29 22 - 32 mmol/L [facility] Comment:Testing performed by : [facility], [address] [place] [phone] Anion gap 9 2 - 15 mmol/L [facility] Comment:Testing performed by : [facility], [address] [place] [phone] BUN 13 8 - 25 mg/dL [facility] Comment:Testing performed by : [facility], [address] [place] [phone] Creatinine 0.72 0.60 - 1.10 mg/dL [facility] Comment:Testing performed by : [facility], [address] [place] [phone] Glucose 165 70 - 199 mg/dL [facility] Comment: Interpretive Data Fasting glucose >/= 126 [...] was last revised 2017. Testing performed by: [place] [id number] Calcium 9.5 8.5 - 10.3 mg/dL [facility] Comment:Testing performed by : [address] Bilirubin, total 0.4 0.1 - 1.2 mg/dL [facility] Comment:Testing performed by : [facility], [address] [place], [place] [id number] Protein, pl 8.6(H) 6.5 - 8.5 g/dL [facility] Comment:Testing performed by : [place] [id number] Albumin 4.0 3.5 - 5.0 g/dL [facility] Comment:Testing performed by : [address] [phone] Alk phos 100 40 - 130 Units/L [facility] Comment:Testing performed by : [place] [id number] ALT 21 7 - 45 Units/L [facility] Comment:Testing performed by : [place] [id number] AST 27 10 - 45 Units/L [facility] Comment: Hemolyzed; result may be falsely elevated. Testing performed by: [address] [phone] Blood 01/05/2021 4:20 PM CDT 01/05/2021 4:25 PM CDT Khris Arthur MD LAB BLOOD ORDERABLES Final Result Performing Organization Address City/State/[facility] Co de Phone Number MARY JANE [facility] Department [place] [address] documented in this encounter Visit Diagnoses Diagnosis Malignant neoplasm of upper-inner quadrant of left breast in female, estrogen receptor positive (HCC)- Primary documented in this encounter Care Teams Teacher Counselor Relationship Specialty Start Date End Date Justen Gale MD 2 [facility] [address] [place] [address] PCP - General 10/09/17 Liu Jerez MD Consulting Physician Gastroenterology 07/28/17 [place] [address] [address] [facility] [address] [place] [address] Consulting Physician Pulmonary Disease 08/03/17 Khris Arthur MD 49[address] [facility] [address] [place] [address] Medical Oncologist/Locomotive Engineer Diesel Medical Oncology 10/23/17 [place] [address] [facility] [address] [place] [address] Surgeon Orthopedic Surgery 10/23/17 [place] [address] [address] [facility] [address] [place] [address] Consulting Physician Pain Management 10/23/17 [place] [address] [address] [facility] [address] [place] [address] Referring Physician General Surgery 01/26/18 [place] [address] [facility] [facility] [address] [place] [address] Consulting Physician Neurology 01/26/18 documented as of this encounter
--- OUTSIDE RECORDS SUMMARY | 2024-04-26 04:22 | XMS_ITS | Encounter Summary ---
Author Organization [facility] Address [address] [place] [address] Care Team Providers Care Academic Associate Name Role Phone Liu Jerez MD Unavailable Albert Corbin MD Unavailable [phone] Justen Gale MD Primary Care Provider Khris Arthur MD Unavailable [phone] Ko Melendez MD Unavailable John Paul Moyer MD Unavailable Annel Rod MD Unavailable Anali MARSHALL MD, Carlos M. Unavailable [phone] Reason for Visit * Reason Comments Flank Pain Abdominal Pain Urinary Frequency * Auth/Cert Specialty Diagnoses / Procedures Referred By Elyssa t Referred To Contact Diagnoses Intractable pain 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) Procedures adm Referral ID Status Reason Start Date Expiration Date Visits Re quested Visits Authorized [id number] 1 1 Encounter Details Date Type Department Care Team (Latest Contact Info) Description 08/01/2021 12:45 PM CDT - 08/04/2021 11:15 AM CDT Hospital Encounter [facility] 4 Med Surg [address] [place] [address] Jamia Rangel DO [address] [place] [address] EMERGENCY MEDICINE [place], [place] [id number] Prince Varela MD [address] [place] [address] [place] [address] Sravan Patel MD [address] [place] [address] [place] [address] Antonella Christianson MD [address] [place] [address] [place] [address] 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) (Primary Dx); Intractable pain Discharge Disposition: Discharge to home or self care Social History Tobacco Use Types Packs/Day Years Used Date Smoking Tobacco: Former Smokeless Tobacco: Never Comments:remote tobacco use Alcohol Use Standard Drinks/Week Comments No 0 (1 standard drink = 0.6 oz pur e alcohol) AUDIT-C Answer Date Recorded Q1: How often do you have a drink containing alc ohol? 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 Gender Identity Not on file Sexual Orientation Not on file documented as of this encounter Last Filed Vital Signs Vital Sign Reading Time Taken Comments Blood Pressure 132/84 08/04/2021 7:45 AM CDT Pulse 73 08/04/2021 7:45 AM CDT Temperature 36.7 ??C (98 ??F) 08/04/2021 7:45 AM CDT Respiratory Rate 18 08/04/2021 7:45 AM CDT Oxygen Saturation 94% 08/04/2021 7:45 AM CDT Inhaled Oxygen Concentration - - Weight 129.4 kg (285 lb 3.2 oz) 08/01/2021 6:01 PM CDT Height 154.9 cm (5' 1 ) 08/01/2021 6:01 PM CDT Body Mass Index 53.89 08/01/2021 6:01 PM CDT documented in this encounter Discharge Summaries * Antonella Christianson MD - 08/04/2021 9:22 AM CDT Inpatient Discharge Summary BRIEF OVERVIEW Admitting Provider: Prince Grimm MD Discharge Provider: Antonella Christianson MD Primary Care Physician at Discharge: Justen Gale MD [phone] Admission Date: 08/01/2021 Discharge Date: 08/04/2021 Primary Discharge Diagnosis: 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) Secondary Discharge Diagnosis: Principal Problem: 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) Resolved Problems: No resolved hospital problems. DETAILS OF HOSPITAL STAY Presenting Problem/History of Present Illness: 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) Hospital Course: Patient was admitted to the hospital secondary to a UTI. She presents to the emergency department with increased abdominal pain and right sided flank pain. Patient reported multiple UTI his history and kidney stones in the past. Patient was allergic to multiple antibiotics. CT of the abdomen and the pelvis did not show any signs of pyelonephritis or. Stones Patient was admitted to telemetry and secondary to her multiple drug allergies she was started on ertapenem for the UTI. Urine culture came back with E coli which is pansensitive. Patient was transitioned from IV antibiotic to oral micro bed twice a day. She tolerated that well without any side effect. On the day of discharge her creatinine 0.7, she was afebrile. So we recommended her to continue with the oral antibiotic for 4 more days. Patient is stable ,patient was examined and hospital course was discussed with the patient. Discharge medicines reviewed and updated. Follow up care was discussed with the patient. All patient's questions were answered .Patient is going home and to follow with PCP and consultants as schedule Active Issues Requiring Follow-up: Test Results Pending at Discharge: Operative Procedures Performed: Other Procedures: Pertinent Test Results: @RESULTRCNT(24H])@ CT Abdomen Pelvis W Contrast Result Date: 08/01/2021 Narrative: EXAM DESCRIPTION: CT ABDOMEN PELVIS W CONTRAST REASON FOR STUDY: Flank pain, kidney stone suspected, RLQ abdominal pain, appendicitis suspected (Age => 15y) Pt c/o lower abd pain x 1 wkalong with LBP and urine frequency. Hx of kidney stones. Denies fever. Pt also nauseated. hx of chcole, , hernia repair, oophorectomy. . TECHNIQUE: CT scan of the abdomen and pelvis performed with intravenous and no oral contrast using helical scanning technique. For intravenous contrast, the patient received 100 mL of IOVERSOL 350 Reconstructed coronal and sagittal MPR images reviewed. All images stored on PACS. Automated exposure control was used as a dose optimization technique for t his examination. COMPARISON: 10/04/2018 and 11/11/2017 FINDINGS: CT Abdomen: Cluster of nodularity at the medial aspect in the left lower lobe. Small hypodense mass of the right kidney again noted that should represent a cyst. No hydronephrosis. Right renal pelvic wall may demonstrate slight hypervascular enhancement. This is a questionable observation. No free air, free fluid or pathologic sizednodes of the abdomen. CT Pelvis: Appendix identified. No appendicitis. No ureteral lithiasis or urinary bladder lithiasis. No free air, free fluid or pathologic sized nodes of the pelvis. Colonic diverticulosis. No diverticulitis. Postoperative changes of the anterior pelvic wall again noted. Smallamount of fluid associated with periumbilical region again noted. Spondylosis of the spine. IMPRESSION: Slight prominence of the right renal pelvis wall which may be normal for patient. Infection notexcluded. Recommend appropriate lab work. No bowel obstruction or appendicitis. THIS IS AN ELECTRONI JILLIAN VERIFIED FINAL REPORT 08/01/2021 3:08 PM - Electronically signed by Noe Morfin M.D. JS: SHANNON Report ID: [id number] Reading Location: [id number] Discharge Details Physical Exam at Discharge: Discharge Condition: stable Pulse: 73 Resp: 18 BP: 132/84 Temp: 36.7 ??C (98 ??F) Weight: 129.4 kg (285 lb 3.2 oz) Pertinent Exam Findings at Discharge: GENERAL: Well-appearing, well-nourished and in no acute distress. HEAD: Atraumatic, normocephalic. EYES: Pupils equal round and reactive to light, extraocular movements intact, sclera anicteric, conjunctiva are normal. ENT: TMs normal, nares patent, oropharynx clear without exudates. Moist mucous membranes. NECK: Normal range of motion, supple without lymphadenopathy or JVD. LUNGS: Breath sounds clear to auscultation bilaterally and equal. No wheezes rales or rhonchi. HEART: Regular rate and rhythm without murmurs, rubs or gallops. ABDOMEN: Soft, nontender, normoactive bowel sounds. No guarding, no rebound. No masses appreciated. EXTREMITIES: Normal range of motion, no pitting or edema. No clubbing or cyanosis. NEUROLOGICAL: Cranial nerves II through XII grossly intact. Normal speech, normal gait. PSYCH: Normal mood, normal affect. SKIN: Warm, Dry, normal turgor, no rashes or lesions noted. Discharge Disposition: Discharge to home or self care Code Status at Discharge: Full Code Discharge Instructions: Activity Instructions Discharge activity: Resume normal activity Diet Instructions Adult Discharge Diet Diet Type: Return to previous diet Other Instructions Call provider for: Temperature -Temperature greater than 101 degrees F Call provider for: difficulty breathing or chest pain Call provider for: extreme fatigue Call provider for: hives Call provider for: persistent dizziness or light-headedness Call provider for: persistent nausea or vomiting Call provider for: redness, tenderness, or signs of infection (pain, swelling, redness, odor or green/yellow discharge around incision site) Call provider for: severe uncontrolled pain Call provider for: headache, visual disturbances, weakness and speech changes . Discharge Medications: Your medication list CHANGE how you take these medications exemestane 25 mg tablet TAKE 1 TABLET(25 MG) BY MOUTH DAILY AFTER A MEAL Commonly known as: AROMASIN What changed: See the new instructions. insulin glargine 100 unit/mL vial for injection Inject 40 Units under the skin daily. Takes in the morning Commonly known as: LANTUS, SEMGLEE What changed: how much to take insulin lispro 100 unit/mL vial for injection Inject 12 Units under the skin 3 (three) times a day before meals. Commonly known as: HumaLOG, ADMELOG What changed: how much to take nitrofurantoin monohydrate 100 mg capsule Take 1 capsule (100 mg total) by mouth 2 (two) times a day for 4 days Commonly known as: MACROBID What changed: See the new instructions. oxybutynin 5 mg tablet take 1 tablet by oral route every day Commonly known as: DITROPAN What changed: how to take this when to take this rivaroxaban 20 mg tablet Take 1 tablet (20 mg total) by mouth daily Commonly known as: Xarelto What changed: when to take this CONTINUE taking these medications acetaminophen-codeine 300-30 mg per tablet Commonly known as: TYLENOL with CODEINE #3 albuterol HFA 90 mcg/actuation inhaler Commonly known as: PROVENTIL HFA,VENTOLIN HFA,PROAIR HFA amitriptyline 25 mg tablet Commonly known as: ELAVIL anastrozole 1 mg tablet Commonly known as: ARIMIDEX aspirin 325 mg tablet baclofen 10 mg tablet Commonly known as: LIORESAL BD Ultra-Fine Short Pen Needle 31 gauge x 5/16 needle Generic drug: pen needle, diabetic clonazePAM 1 mg tablet Take 1 tablet (1 mg total) by mouth 2 (two) times a day for 10 days . Commonly known as: KlonoPIN clotrimazole-betamethasone cream Commonly known as: LOTRISONE dapagliflozin 5 mg tablet Commonly known as: FARXIGA dexAMETHasone 4 mg tablet Commonly known as: DECADRON dextromethorphan ER 6 mg/mL liquid Commonly known as: DELSYM DULoxetine DR 20 mg capsule Commonly known as: CYMBALTA famotidine 20 mg tablet Commonly known as: PEPCID gabapentin 300 mg capsule Commonly known as: NEURONTIN HYDROcodone-acetaminophen 5-325 mg per tablet Commonly known as: NORCO hydrOXYzine 25 mg tablet Commonly known as: ATARAX ibuprofen 600 mg tablet Commonly known as: ADVIL,MOTRIN lisinopriL 20 mg tablet Commonly known as: PRINIVIL,ZESTRIL metoprolol tartrate 25 mg immediate release tablet Commonly known as: LOPRESSOR mirabegron ER 25 mg tablet extended release 24 hr Commonly known as: MYRBETRIQ morphine 15 mg tablet Commonly known as: MSIR mupirocin 2 % ointment Commonly known as: BACTROBAN naloxone 4 mg/actuation spray,non-aerosol Commonly known as: NARCAN ondansetron ODT 4 mg disintegrating tablet Commonly known as: ZOFRAN-ODT OneTouch Ultra Test strip Generic drug: blood glucose diagnostic pantoprazole DR 40 mg EC tablet Commonly known as: PROTONIX prochlorperazine 10 mg tablet Commonly known as: COMPAZINE rOPINIRole 5 mg tablet Commonly known as: REQUIP selenium sulfide 2.5 % lotion sucralfate 1 gram tablet Commonly known as: CARAFATE STOP taking these medications amoxicillin 875 mg tablet Commonly known as: AMOXIL azithromycin 250 mg tablet Commonly known as: ZITHROMAX levoFLOXacin 250 mg tablet Commonly known as: LEVAQUIN methylPREDNISolone 4 mg Dosepack Commonly known as: MEDROL DOSEPACK metoclopramide 10 mg tablet Commonly known as: REGLAN metroNIDAZOLE 500 mg tablet Commonly known as: FLAGYL sulfamethoxazole-trimethoprim 800-160 mg per tablet Commonly known as: BACTRIM DS Outpatient Follow-Up: No future appointments. Time Spent on Discharge Process: I have spent 20 minutes on discharge planning activities. Time spent was on Coordination of care, Follow up , Counselling with patient/family and discharge exam. Antonella Christianson MD 08/04/2021 documented in this encounter Medications at Time of Discharge albuterol HFA (PROVENTIL HFA,VENTOLIN HFA,PROAIR HFA) 90 mcg/actuation inhaler Inhale 2 puffs every 6 (six) hours as needed for wheezing or shortness of breath 1 BD Ultra-Fine Short Pen Needle 31 gauge x 5/16 needle USE 6 TIMES DAILY DIRECTED 2 blood glucose diagnostic (OneTouch Ultra Test) strip 4 (four) times a day 02 1 naloxone (NARCAN) 4 mg/actuation spray,non-aerosol 2 rOPINIRole (REQUIP) 5 mg tablet Take 1 tablet (5 mg total) by mouth nightly Taken at 2100 nitrofurantoin monohydrate (MACROBID) 100 mg capsuleIndications: Urinary Tract/Genitourinary Infection Take 1 capsule (100 mg total) by mouth 2 (two) times a day for 4 days 8 capsule 2 022 acetaminophen-codei ne (TYLENOL with CODEINE #3) 300-30 mg per tablet acetaminophen 300 mg-codeine 30 mg tablet amitriptyline (ELAVIL) 25 mg tablet Take 25 mg by mouth nightly 9 024 anastrozole (ARIMIDEX) 1 mg tablet anastrozole 1 mg tablet aspirin 325 mg tablet Take 325 mg by mouth daily baclofen (LIORESAL) 10 mg tablet baclofen 10 mg tablet clonazePAM (KlonoPIN) 1 mg tablet Take 1 tablet (1 mg total) by mouth 2 (two) times a day for 10 days . 20 tablet 9 clotrimazole-betame thasone (LOTRISONE) cream clotrimazole-betamet hasone 1 %-0.05 % topical cream APPLY TOPICALLY TO AFFECTED AND SURROUNDING AREAS BID IN THE MORNING AND EVENING X 2 WEEKS dapagliflozin (FARXIGA) 5 mg tablet daily dexAMETHasone (DECADRON) 4 mg tablet dexamethasone 4 mg tablet TAKE TWO TABLETS PO IN THE MORNING DAY AFTER CHEMO WHICH IS DAY 2 TAKE TWO TABLETS IN MORNING AND TWO TABLETS AT NIGHT ON DAY 3 AND 4 dextromethorphan (DELSYM) syrup 30 mg/5 mL Take 30 mg by mouth every 12 (twelve) hours as needed DULoxetine DR (CYMBALTA) 20 mg capsule Cymbalta 20 mg capsule,delayed release exemestane (AROMASIN) 25 mg tabletIndications: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 8 hydrOXYzine (ATARAX) 25 mg tablet hydroxyzine HCl 25 mg tablet ibuprofen (ADVIL,MOTRIN) 600 mg tablet ibuprofen 600 mg tablet TK 1 T PO Q 6 H PRN insulin glargine (LANTUS) 100 unit/mL injection Inject 40 Units under the skin daily. Takes in the morning 8 024 insulin lispro (HumaLOG) 100 unit/mL injection Inject 12 Units under the skin 3 (three) times a day before meals. 8 lisinopril (PRINIVIL,ZESTRIL) 20 mg tablet Take 20 mg by mouth. 01 3 metoprolol tartrate (LOPRESSOR) 25 mg immediate release tablet metoprolol tartrate 25 mg tablet mirabegron ER (MYRBETRIQ) 25 mg tablet extended release 24 hr Take 25 mg by mouth daily 1 morphine (MSIR) 15 mg tablet morphine 15 mg immediate release tablet mupirocin (BACTROBAN) 2 % ointment mupirocin 2 % topical ointment ondansetron ODT (ZOFRAN-ODT) 4 mg disintegrating tablet 2 oxybutynin (DITROPAN) 5 mg tablet take 1 tablet by oral route every day 0 [address] (PROTONIX) 40 mg EC tablet pantoprazole 40 mg tablet,delayed release 022 prochlorperazine (COMPAZINE) 10 mg tablet prochlorperazine maleate 10 mg tablet rivaroxaban (Xarelto) 20 mg tabletIndications:O ther pulmonary embolism without acute cor pulmonale, unspecified [...] mg total) by mouth daily 30 tablet 4 1 selenium sulfide 2.5 % lotion selenium sulfide 2.5 % shampoo APPLY TO THE AFFECTED AREAS BY TOPICAL ROUTE TWICE WEEKLY LATHER LEAVE ON 10 MINUTES AND RINSE OFF sucralfate (CARAFATE) 1 gram tablet Take 1 g by mouth 4 (four) times a day documented as of this encounter Ordered Prescriptions Prescription Sig Dispense Quantity Refills Last Filled Start Date End Date nitrofurantoin monohydrate (MACROBID) 100 mg capsuleIndications :Urinary Tract/Genitourinar y Infection Take 1 capsule (100 mg total) by mouth 2 (two) times a day for 4 days 8 capsule 08/04/2021 2 documented in this encounter Discharge Disposition Disposition Code Departure Means Destination Discharge to home or self care documented in this encounter Progress Notes * Jil Valdez COTA - 08/04/2021 11:15 AM CDT Occupational Therapy 08/04/21 0843 General Session Type Treatment OT Received On 08/04/21 Safe Environment Patient found sitting in Chair;Session Completed Bedside;Call Light within Reach;Overbed Table within Reach Subjective Agreeable to Therapy Subjective Comment I need transportation set-up to go home (SW was notified) Current Functional Status OT Functional Mobility Patient completed functional mobility in/out of bathroom and in room with noAD with I. Patient completed sit <> stand from shower bench and recliner and EOB with I OT Self Care Patient completed UE/LE bathing standing/sitting in front of sink with I. Patient completed doffing of hospital gown with I and doning of pants/underwear and pullover with I. Patient demonstrated washing hair at sink with I Plan Plan Discharge Recommendation/Plan OT Recommendation Home with family;Home with intermittent assist * Mckenzie Hart MSW - 08/04/2021 8:56 AM CDT HVAC/R SERVICE TECHNICIAN met briefly with pt as she thought the hospital offered transportation. Informed pt there is no transportation through the hospice but she has a transportation benefit through Medicaid. Pt does not want to wait on Medicaid transportation and said that her will pick her up. * Jil Valdez COTA - 08/03/2021 12:13 PM CDT Occupational Therapy 08/03/21 1112 General Session Type Treatment OT Received On 08/03/21 Safe Environment Bed rails up per protocol;Bed in Lowest Position with Wheels locked;Overbed Table within Reach;Session Completed Bedside;Patient found in Supine;Call Light within Reach;Arm Band Checked Subjective Agreeable to Therapy Subjective Comment I have been waiting for you guys Family/Caregiver Present No Current Functional Status OT Functional Mobility Patient completed functional mobility in/out of bathroom utilizing walker wtih SBA OT Self Care Patient completed toilet tranfser utilizing grab bars with SBA and anterior hygiene with I. Patient completed hand washing standing in front of sink with SBA Precautions Precautions Fall risk Pain Assessment Pain Assessment No/denies pain Bed Mobility Bed Mobility Yes Bed Mobility 1 Bed Mobility From 1 Supine Bed Mobility Type 1 To Bed Mobility to 1 Edge of bed Level of Assistance 1 Independent Plan Plan Continue with current plan Recommendation/Plan OT Recommendation Home with family;Home with intermittent assist Educated the patient to the role of occupational therapy, plan of care, goals of therapy, rationalefor progressing mobility and home safety. RN notified of session outcome. Patient was left in sitting in recliner with bilateral legs elevated with all needs met and equipment intact. Safety measures include oriented to call light and placedwithin reach and personal items within reach. Mobility and ADL status posted at bedside and within medical record. * Antonella Christianson MD - 08/03/2021 12:06 PM CDT General Medicine Daily Progress SUBJECTIVE Patient is seen for Principal Problem: 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) Diabetes mellitus Restless leg syndrome Depression/anxiety History of DVT History of breast cancer Patient stated that she has some reaction from the retro pain and today. She denies any fever or chills Medicines reviewed History reviewed Labs reviewed OBJECTIVE Vitals: 24hr Min/Max: Temp Min: 36.4 ??C (97.5 ??F) Max: 37 ??C (98.6 ??F) Pulse Min: 74 Max: 90 BP Min: 133/81 Max: 161/87 Resp Min: 18 Max: 18 SpO2 Min: 91 % Max: 100 % Most Recent : Vitals: 08/03/21 1148 BP: 161/87 Pulse: 82 Resp: 18 Temp: 36.8 ??C (98.3 ??F) SpO2: 95% I/O last 2 completed shifts: In: 840 [P.O.:840] Out: 350 [Urine:350] I/O this shift: In: 236 [P.O.:236] Out: - Review of Systems Constitutional: Negative for chills and fever. Cardiovascular: Negative for palpitations. Physical Exam: Eyes: EOMI, NETTIE, sclare non icteric Neck: supple, no nuchal ridigity, no gross carotid bruits appreciated Pharynx: No gross oral lesion, tongue midline, mucosa moist Lungs CTA Heart: [id number], no significant murmur or gallop Abd: +BS, Non Tender, Non distended, No gross hepatomegaly Lower Ext: No gross edema, pedal artery pulses are palpable bilaterally Neuro: No new deficits appreciated Musculoskeletal: no gross joint erythema, edema, tenderness Skin: No new change Lab/Current Medication Review: Recent Results (from the past 24 hour(s)) POCT glucose Collection Time: 08/02/21 12:14 PM Result Value Ref Range Glucose, POC 124 70 - 199 mg/dL Glucose comment 1 Use This Result Glucose comment 2 Will Notify Nurse POCT glucose Collection Time: 08/02/21 5:02 PM Result Value Ref Range Glucose, POC 176 70 - 199 mg/dL POCT glucose Collection Time: 08/02/21 9:51 PM Result Value Ref Range Glucose, POC 236 (H) 70 - 199 mg/dL POCT glucose Collection Time: 08/03/21 7:50 AM Result Value Ref Range Glucose, POC 245 (H) 70 - 199 mg/dL Glucose comment 1 Use This Result POCT glucose Collection Time: 08/03/21 11:48 AM Result Value Ref Range Glucose, POC 273 (H) 70 - 199 mg/dL Glucose comment 1 Use This Result Current Facility-Administered Medications Medication Dose Route Frequency Provider Last Rate Last Admin ??? acetaminophen (TYLENOL) tablet 650 mg 650 mg oral Q4H PRN Prince Grimm MD ??? amitriptyline (ELAVIL) tablet 25 mg 25 mg oral Nightly Prince Grimm MD 25 mg at 08/02/212158 ??? bisacodyL (DULCOLAX) suppository 10 mg 10 mg rectal Daily PRN Prince Grimm MD ??? bisacodyl EC (DULCOLAX EC) tablet 10 mg 10 mg oral Daily PRN Prince Grimm MD ??? dextrose (GLUTOSE) 40 % gel 15 g 15 g oral Q15 Min PRN Prince Grimm MD Or ??? dextrose (D10W) 10% bolus 250 mL 250 mL intravenous Q15 Min PRN Prince Grimm MD ??? exemestane (AROMASIN) tablet 25 mg *REQUEST PATIENT SUPPLY* 25 mg oral Nightly Prince Grimm MD ??? glucagon injection 1 mg 1 mg intramuscular Q30 Min PRN Prince Grimm MD ??? HYDROcodone-acetaminophen (NORCO) 5-325 mg per tablet 2 tablet 2 tablet oral Q4H PRN Sravan Patel MD 2 tablet at 08/03/21 0617 ??? HYDROmorphone (DILAUDID) injection 0.2 mg 0.2 mg intravenous Q2H PRN Prince Grimm MD 0.2 mg at 08/02/21 0812 ??? insulin glargine (LANTUS, SEMGLEE) 100 unit/mL injection 35 Units 35 Units subcutaneous NightlyAntonella Christianson MD ??? insulin lispro (HumaLOG, ADMELOG) 100 unit/mL injection 0-10 Units 0-10 Units subcutaneous TID with meals Prince Grimm MD 4 Units at 08/03/21 0959 ??? insulin lispro (HumaLOG, ADMELOG) 100 unit/mL injection 0-5 Units 0-5 Units subcutaneous Nightly Prince Grimm MD 2 Units at 08/02/212157 ??? insulin lispro (HumaLOG, ADMELOG) 100 unit/mL injection 11 Units 0.083 Units/kg subcutaneous TID with meals Prince Grimm MD 11 Units at 08/03/21 0958 ??? methylPREDNISolone sodium succinate (SOLU-medrol) preservative free injection 40 mg 40 mg intravenous Once Antonella Christianson MD ??? nitrofurantoin monohydrate (MACROBID) capsule 100 mg 100 mg oral BID Antonella Christianson MD ??? oxybutynin (DITROPAN) tablet 5 mg 5 mg oral BID Prince Grimm MD 5 mg at ??? polyethylene glycol (MIRALAX) packet 17 g 17 g oral Daily PRN Prince Grimm MD ??? prochlorperazine (COMPAZINE) tablet 5 mg 5 mg oral Q6H PRN Prince Grimm MD Or ??? prochlorperazine (COMPAZINE) injection 5 mg 5 mg intravenous Q6H PRN Prince Grimm MD 5 mg at 08/01/21 2300 ??? ramelteon (ROZEREM) tablet 8 mg 8 mg oral Nightly PRN Prince Grimm MD ??? rivaroxaban (XARELTO) tablet 20 mg 20 mg oral Nightly Al Prince Kinney MD 20 mg at 08/02/212158 ??? rOPINIRole (REQUIP) tablet 5 mg 5 mg oral Nightly Al Prince Kinney MD 5 mg at 08/02/21 2200 A/P: 08/03 Patient is afebrile White blood count 13.1 Blood sugars are elevated Urine culture did grow E coli which is pansensitive Patient is allergic to multiple antibiotics Plan Will stop ertapenem Start her on oral nitrofurantoin b.i.d. Watch her for the next 24 hours and see her reaction to that antibiotic E coli is sensitive to that antibiotic Give her 1 dose of Solu-Medrol IV today Adjust insulins to keep blood sugars under better control Continue depression medicines Continue anticoagulation for the history of DVT D GI prophylaxis A.m. labs MDM moderate Principal Problem: 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) Resolved Problems: No resolved hospital problems. Diabetes mellitus Restless leg syndrome Depression/anxiety History of DVT History of breast cancer Voice recognition software [employer] Direct may have been used dictate and transcribe this document. Parts Cataloguer variances may occur. Despite proofreading, typographical errors may occur. Antonella Christianson MD 08/03/2021 12:07 PM * Jimmie Su PTA - 08/03/2021 10:52 AM CDT Physical Therapy 08/03/21 1052 PT Last Visit Session Type Treatment PT Received On 08/03/21 Safe Environment Patient found in Supine;Bed rails up per protocol;Arm Band Checked;Call Light within Reach;Bed in Lowest Position with Wheels locked;Overbed Table within Reach Subjective Agreeable to Therapy Family/Caregiver Present No Precautions Precautions Fall risk Pain Assessment Pain Assessment No/denies pain Cognition Arousal/Alertness Alert Orientation Oriented X4 (person, place, time, situation) Following Commands Follows all commands and directions without difficulty Bed Mobility Bed Mobility Yes Bed Mobility 1 Bed Mobility From 1 Supine Bed Mobility Type 1 To Bed Mobility to 1 Edge of bed Level of Assistance 1 Independent Transfers Transfer Yes Transfer 1 Transfer From 1 Sit Transfer Type 1 To and from Transfer to 1 Stand Technique 1 Sit to stand;Stand to sit Transfer Device 1 Wheeled walker Transfer Level of Assistance 1 Contact Guard Assist Ambulation Functional Ambulation Category 2 Ambulation Yes Ambulation 1 Distance (ft) 1 200 Surface 1 Level tile Device 1 Wheeled walker Assistance 1 Standby Assist;Contact Guard Assist Gait: Requires assist with 1 Maintaining balance Gait: Requires verbal cues to 1 Use assistive device safely;Utilize appropriate gait sequencing;Increase step length;Increase base of support Quality of Gait 1 Steady Ambulation Comments 1 Pt ambulated very well w/FWW. No LOB or SOB. No gait deviations noted. Recommendation/Plan PT Recommendation/Plan (S) Home with family;Home with caregiver Progress Improving as expected Multi-Disciplinary Problems (from Physical Therapy) Active Problems Problem: Mobility Start Date: 08/02/21 Goal Start Date Expected End Date End Date LTG - Patient will demonstrate functional mobility with the following level of assist: 08/02/21 08/16/21 -- Goal Details: Pt will transfer and amb w walker, sba fo 1, 150 feet. PT goal met. Educated the patient to the role of physical therapy, plan of care, goals of therapy, rationale forprogressing mobility. Patient was left in chair with all needs met and equipment intact. Safety measures include orientedto call light and placed within reach, personal items within reach, and bed placed in lowest position. Mobility and ADL status posted at bedside and within medical record. * Sravan Patel MD - 08/02/2021 4:12 PM CDT Images from the original note were not included. General Medicine Daily Progress SUBJECTIVE History of Present Illness: Patient presents emergency department with increasing abdominal pain and right- sided flank pain. She reports she started notice pain about a week ago with increasing intensity. She reports the pain starts from her right flank and radiates to her right lower abdomen. She also noticed urinary frequency and cloudy urine. Patient reports history of multiple UTIs and kidney stones in the past. She is allergic to multiple antibiotics. Blood work remarkable for a WBC of 13.3. UA sent to be cultured CT abdomen and pelvis shows slight prominence of the right renal pelvis wall which may be normal for patient, infection not excluded. ?? Chief complaint of right flank pain Interval History: 08/02/21 Patient is complaining of right flank pain otherwise doing okay. OBJECTIVE Vitals: 24hr Min/Max: Temp Min: 36.5 ??C (97.7 ??F) Max: 36.9 ??C (98.5 ??F) Pulse Min: 77 Max: 94 BP Min: 112/71 Max: 161/93 Resp Min: 16 Max: 21 SpO2 Min: 92 % Max: 98 % Most Recent : Vitals: 08/02/21 1540 BP: 148/88 Pulse: 84 Resp: 18 Temp: 36.6 ??C (97.9 ??F) SpO2: 93% I/O last 2 completed shifts: In: 2100 [IV Piggyback:2100] Out: 1150 [Urine:1150] I/O this shift: In: 480 [P.O.:480] Out: 350 [Urine:350] Physical Exam: Eyes: EOMI, NETTIE, sclare non icteric Neck: supple, no nuchal ridigity, no gross carotid bruits appreciated Pharynx: No gross oral lesion, tongue midline, mucosa moist Lungs CTA Heart: [id number], no significant murmur or gallop Abd: +BS, Non Tender, Non distended, No gross hepatomegaly Lower Ext: No gross edema, pedal artery pulses are palpable bilaterally Neuro: No new deficits appreciated Musculoskeletal: no gross joint erythema, edema, tenderness Skin: No new change Lab/Current Medication Review: Recent Results (from the past 24 hour(s)) POCT glucose Collection Time: 08/01/21 6:04 PM Result Value Ref Range Glucose, POC 88 70 - 199 mg/dL POCT glucose Collection Time: 08/01/21 9:56 PM Result Value Ref Range Glucose, POC 138 70 - 199 mg/dL Glucose comment 1 Use This Result CBC with auto differential Collection Time: 08/02/21 3:27 AM Result Value Ref Range WBC 13.1 (H) 3.8 - 9.9 K/cumm Hgb 12.4 11.9 - 15.5 g/dL Hct 39.4 35.6 - 45.5 % Plt 298 150 - 400 K/cumm MPV 9.7 9.1 - 12.3 fL RBC 4.33 3.90 - 5.20 M/cumm MCV 91.0 81.3 - 96.4 fL MCH 28.6 27.1 - 33.3 pg MCHC 31.5 (L) 32.3 - 35.7 g/dL RDW CV 14.0 11.1 - 14.9 % RDW SD 47.2 35.7 - 48.1 fL NRBC abs 0.00 0.00 - 0.01 K/cumm Basic metabolic panel Collection Time: 08/02/21 3:27 AM Result Value Ref Range Sodium 135 135 - 145 mmol/L Potassium, pl 4.5 3.3 - 4.9 mmol/L Chloride 99 97 - 110 mmol/L CO2 25 22 - 32 mmol/L Anion gap 11 2 - 15 mmol/L BUN 16 8 - 25 mg/dL Creatinine 0.70 0.60 - 1.10 mg/dL Glucose 148 70 - 199 mg/dL Calcium 9.6 8.5 - 10.3 mg/dL Differential, auto Collection Time: 08/02/21 3:27 AM Result Value Ref Range Neutrophil abs 9.0 (H) 1.7 - 6.5 K/cumm Imm gran abs 0.1 0.0 - 0.1 K/cumm Lymphocyte abs 2.8 0.8 - 3.3 K/cumm Monocyte abs 0.9 (H) 0.2 - 0.8 K/cumm Eosinophil abs 0.3 0.0 - 0.5 K/cumm Basophil abs 0.0 0.0 - 0.1 K/cumm Neutrophil pct 68.6 % Imm gran pct 0.5 % Lymphocyte pct 21.3 % Monocyte pct 7.2 % Eosinophil pct 2.1 % Basophil pct 0.3 % eGFR Collection Time: 08/02/21 3:27 AM Result Value Ref Range eGFR 96 mL/min/1.73 m2 POCT glucose Collection Time: 08/02/21 8:18 AM Result Value Ref Range Glucose, POC 127 70 - 199 mg/dL Glucose comment 1 Use This Result Glucose comment 2 Will Notify Nurse POCT glucose Collection Time: 08/02/21 12:14 PM Result Value Ref Range Glucose, POC 124 70 - 199 mg/dL Glucose comment 1 Use This Result Glucose comment 2 Will Notify Nurse Imaging ?? CT Abdomen Pelvis W Contrast ?? Result Date: 08/01/2021 Narrative: EXAM DESCRIPTION: CT ABDOMEN PELVIS W CONTRAST REASON FOR STUDY: Flank pain, kidney stone suspected, RLQ abdominal pain, appendicitis suspected (Age => 15y) Pt c/o lower abd pain x 1 wkalong with LBP and urine frequency. Hx of kidney stones. Denies fever. Pt also nauseated. hx of chcole, , hernia repair, oophorectomy. . TECHNIQUE: CT scan of the abdomen and pelvis performed with intravenous and no oral contrast using helical scanning technique. For intravenous contrast, the patient received 100 mL of IOVERSOL 350 Reconstructed coronal and sagittal MPR images reviewed. All images stored on PACS. Automated exposure control was used as a dose optimization technique for t his examination. COMPARISON: 10/04/2018 and 11/11/2017 FINDINGS: CT Abdomen: Cluster of nodularity at the medial aspect in the left lower lobe. Small hypodense mass of the right kidney again noted that should represent a cyst. No hydronephrosis. Right renal pelvic wall may demonstrate slight hypervascular enhancement. This is a questionable observation. No free air, free fluid or pathologic sizednodes of the abdomen. CT Pelvis: Appendix identified. No appendicitis. No ureteral lithiasis or urinary bladder lithiasis. No free air, free fluid or pathologic sized nodes of the pelvis. Colonic diverticulosis. No diverticulitis. Postoperative changes of the anterior pelvic wall again noted. Smallamount of fluid associated with periumbilical region again noted. Spondylosis of the spine. IMPRESSION: Slight prominence of the right renal pelvis wall which may be normal for patient. Infection notexcluded. Recommend appropriate lab work. No bowel obstruction or appendicitis. THIS IS AN ELECTRONI JILLIAN VERIFIED FINAL REPORT 08/01/2021 3:08 PM - Electronically signed by Noe Morfin M.D. JS: SHANNON Report ID: [id number] Reading Location: [place] [address] ?? Current Facility-Administered Medications Medication Dose Route Frequency Provider Last Rate Last Admin ??? acetaminophen (TYLENOL) tablet 650 mg 650 mg oral Q4H PRN Al Prince Kinney MD ??? amitriptyline (ELAVIL) tablet 25 mg 25 mg oral Nightly Prince Grimm MD 25 mg at 08/01/212138 ??? bisacodyL (DULCOLAX) suppository 10 mg 10 mg rectal Daily PRN Prince Grimm MD ??? bisacodyl EC (DULCOLAX EC) tablet 10 mg 10 mg oral Daily PRN Prince Grimm MD ??? dextrose (GLUTOSE) 40 % gel 15 g 15 g oral Q15 Min PRN Prince Grimm MD Or ??? dextrose (D10W) 10% bolus 250 mL 250 mL intravenous Q15 Min PRN Prince Grimm MD ??? ertapenem (INVanz) 1,000 mg in sodium chloride 0.9% 100 mL IVPB 1,000 mg intravenous Nightly Jamia Rangel, 200 mL/hr at 08/01/212138 1,000 mg at 08/01/212138 ??? exemestane (AROMASIN) tablet 25 mg *REQUEST PATIENT SUPPLY* 25 mg oral Nightly Prince Grimm MD ??? glucagon injection 1 mg 1 mg intramuscular Q30 Min PRN Prince Grimm MD ??? HYDROcodone-acetaminophen (NORCO) 5-325 mg per tablet 1 tablet 1 tablet oral Q4H PRN Prince Grimm MD 1 tablet at 08/02/21 1327 ??? HYDROmorphone (DILAUDID) injection 0.2 mg 0.2 mg intravenous Q2H PRN Prince Grimm MD 0.2 mg at 08/02/21 0812 ??? insulin glargine (LANTUS, SEMGLEE) 100 unit/mL injection 32 Units 0.25 Units/kg subcutaneous Nightly Prince Grimm MD 32 Units at 08/01/212139 ??? insulin lispro (HumaLOG, ADMELOG) 100 unit/mL injection 0-10 Units 0-10 Units subcutaneous TID with meals Prince Grimm MD ??? insulin lispro (HumaLOG, ADMELOG) 100 unit/mL injection 0-5 Units 0-5 Units subcutaneous Nightly Prince Grimm MD ??? insulin lispro (HumaLOG, ADMELOG) 100 unit/mL injection 11 Units 0.083 Units/kg subcutaneous TID with meals Prince Grimm MD 11 Units at 08/02/21 1328 ??? oxybutynin (DITROPAN) tablet 5 mg 5 mg oral BID Prince Grimm MD 5 mg at ??? polyethylene glycol (MIRALAX) packet 17 g 17 g oral Daily PRN Prince Grimm MD ??? prochlorperazine (COMPAZINE) tablet 5 mg 5 mg oral Q6H PRN Prince Grimm MD Or ??? prochlorperazine (COMPAZINE) injection 5 mg 5 mg intravenous Q6H PRN Prince Grimm MD 5 mg at 08/01/210 ??? ramelteon (ROZEREM) tablet 8 mg 8 mg oral Nightly PRN Prince Grimm MD ??? rivaroxaban (XARELTO) tablet 20 mg 20 mg oral Nightly Prince Grimm MD 20 mg at 08/01/212138 ??? rOPINIRole (REQUIP) tablet 5 mg 5 mg oral Nightly Prince Grimm MD 5 mg at 08/01/212138 A/P: Principal Problem: 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) Resolved Problems: No resolved hospital problems. 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/early pyelonephritis Multiple antibiotic drug allergies Case was discussed with pharmacy by ER provider, recommended ertapenem UCX pending 08/02/21 ??WBC 13.1 Afebrile Ertapenem Urine culture growing out E coli sensitivity to follow Will increase her [place] from 1 tab q.4 hours p.r.n. pain to 2 tabs q.4 hours p.r.n. pain DM-patient takes 50 units of Lantus in the morning and 22 units of Humalog with meals. However she reports he has had a poor appetite and has not been eating well especially with her abdominal pain and mild nausea. Will start the patient on 32 units of Lantus in the morning along with 11 units of lispro with sliding scale insulin. Adjust insulin as needed 08/02/21 ??Blood glucose 88-148 Continue current regimen ?? Restless leg syndrome-continue home Requip ?? Depression/anxiety, continue home medications ?? History of DVT, continue Xarelto ?? Breast cancer- continue Aromasin DVT prophylaxis: Continue Xarelto PT/OT: Ordered Case discussed with Case Management and Douper Medical complexity/risk: Moderate Voice recognition software [employer] may have been used dictate and transcribe this document. Parts Cataloguer variances may occur. Despite proofreading, typographical errors may occur. Sravan Patel MD 08/02/2021 4:12 PM * Darcy Loyola RN - 08/02/2021 3:31 PM CDT CM Initial Assessment Interview Note Information Obtained From: Patient (08/02/211526) Admission Source: ED Impression: Pt presented with C/o R flank pain. UTI complicated due to allergies to many antibiotics. Plan Includes: WBC 13.1. IV ertapenem. Primary Source of Transportation: Does the patient need discharge transport arranged?: No (08/01/211725) Primary Care Provider: Justen Gale MD Prior to Admission: Primary Caregiver: Self Support System: Spouse/Significant Other Durable Medical Equipment: Cane (single prong), Walker (wheeled), CPAP/Bi-PAP Living Arrangements: Spouse/significant other Type of Residence: Private residence Steps in home? : Yes, Outside of home, Yes, Inside home Number of steps inside:: (to basement, pt does not use them) Number of steps outside:: 2 steps (08/01/211725) Patient expects to be Discharged to: Private residence, (08/02/211526) Patient's Identified Problem/Goal Problem: Ensure acute medical [...] Collaboration with patient, MD, direct care nurse, Douper, Nurse Coordinator and other members of the health care team to assure needed interventions completed. 2. Return patient to optimal level of self-care post discharge. 3. Data Center Project Manager will follow for Discharge Planning - interventions as needed 4. Anticipated level of care at discharge 5. Planned Discharge Disposition Darcy Loyola, RN * Ramon Guthrie. - 08/02/2021 12:59 PM CDT 08/02/21 1200 Time Spent Start Time 1129 Patient Spiritual Assessment Spirituality Assessed Yes Catholic Affiliation Gnosticism Active in Church Yes Clinical Encounter Type Visited With Patient Response Type Routine visit Routine Visit Introduction Reason for visit Support Patient not feeling great today, but a little better. Pt stated that pain caused her to be admittedto hospital. However, pt is namely concerned about abdomen and back. Used active listening, spiritual encouragement, and prayer to offer pt spiritual care. * Riccardo Caba OT - 08/02/2021 9:38 AM CDT Occupational Therapy 08/02/21 0938 General Chart Reviewed Yes Session Type Evaluation Safe Environment Arm Band Checked;Call Light within Reach;Notified RN Subjective Agreeable to Therapy Additional Pertinent History Pt admitted with abdominal/flank pain. L UE lymphedema (sleeve) PMHx significant for frequent UTIs and kidney stones, HTN, OA, obesity, breast CA, DM, RLS, depression/anxiety, hx of DVT Occupational Therapy-Patient Goal Feel better, recovery to get back to her PLOF Current Functional Status OT Functional Mobility Pt completes functional mobility with ww, G- balance bed>toilet in bathroom>in hallways> chair with SBA. Precautions Precautions Bed/Chair Alarm;Fall risk Home Living Type of Home House Home Layout One level Home Access Stairs to enter without rails Entrance Stairs-Rails None Entrance Stairs-Number of Steps 2 Bathroom Shower/Tub Tub/shower unit Bathroom Toilet Standard Bathroom Equipment Grab bars in shower/tub;Shower chair Bathroom Accessibility Accessible Home Mobility Equipment Wheeled walker;Single point cane (uses both) Prior Function Level of [place] Independent functional transfers;Independent with ambulation;Needs assistancewith homemaking;Needs assistance with ADLs Lives With Spouse;Daughter Receives Help From Family (daughter is paid caregiver, assists for IADLs, homecare, supervised bathing.) Driving Yes Mode of Transportation Driven by self Vocational/Occupation On disability Fall within the last 6 months No Prior Function Comments Pt able to toilet, dress, manage light IADLs with use of walker, modified ind. Grooming Grooming: Where assessed Standing at sink Grooming: Level of assistance Standby Assist Grooming: Assistance with Wash/dry hands;Wash/dry face LE Dressing LE Dressing: Where assessed Edge of bed LE Dressing: Assistance with Don/doff R sock;Don/doff L sock (daughter assists to don shoes, pt able to reach near foot.) Toileting Toileting: Where assessed Toilet (grab bar) Toileting: Level of assistance Standby Assist Functional Transfers Functional Transfer: Level of assistance Standby Assist Pain Assessment Pain Assessment 0-10 Pain Score 7 Pain Type Acute pain Pain Location Flank Pain Orientation Right Pain Descriptors Aching Clinical Progression Gradually improving Effect of Pain on Daily Activities pt currently guarding, decreased speed of ADLS/transfers/mobility Activity Tolerance Endurance Tolerates 10 - 20 min activity with multiple rests Activity Tolerance Comments returns to bed after mobility, ADLs with pain Cognition Arousal/Alertness Alert Attention Span Appears intact Memory Appears intact Current communication Appears Intact Orientation Oriented X4 (person, place, time, situation) Following Commands Follows all commands and directions without difficulty Insight Fully aware of deficits Compliance/Behavior Easy to engage Reach/Grasp RUE Reach (Bilateral UE REACH: able to reach top of head in seated DEYSI with prior shoulder flexion limitations at approx 90 degrees. ER/IR tested/intact for functional reach.) Bed Mobility 1 Bed Mobility From 1 Supine Bed Mobility Type 1 To Bed Mobility to 1 Edge of bed Level of Assistance 1 Standby Assist Transfer 1 Transfer From 1 Sit Transfer Type 1 To and from Transfer to 1 Stand Transfer Device 1 Wheeled walker Transfer Level of Assistance 1 Standby Assist;Contact Guard Assist Assessment Prognosis Good Problem List Decreased endurance;Decreased functional mobility;Decreased ADL independence;DecreasedIADL independence;Pain Problem List Comments Pt limited by pain, decreased activity tolerance, fatigue. She will benefit from skilled OT to progress ADLs toward PLOF. Plan Plan Plan of care initiated Recommendation/Plan OT Recommendation Home with family;Home with intermittent assist OT Frequency 3-5x/wk Treatment/Interventions ADL/IADL retraining;Balance Training;Bed mobility;Compensatory technique education;Endurance training;Equipment eval/education;Functional activity;Functional mobility training;Functional transfer training OT - Next Appointment 08/16/21 OT Evaluation Complete Yes Multi-Disciplinary Problems (from Occupational Therapy) Active Problems Problem: OT Misc Start Date: 08/02/21 Goal Start Date Expected End Date End Date OT [facility] [place] 08/02/21 08/09/21 -- Goal Details: 1) LE ADL SBA WITH AE PRN. Goal Start Date Expected End Date End Date OT [facility] [place] 08/02/21 08/09/21 -- Goal Details: 2) FUNCTIONAL MOBILITY TO/FROM BATHROOM AND ALL ASPECTS TOILETING MODIFIED INDEP WITHDME. Goal Start Date Expected End Date End Date OT [facility] [place] [facility] 08/02/21 08/09/21 -- Goal Details: 3) STAND AT SINK >5 MIN FOR ADL WITH GOOD BALANCE. Goal Start Date Expected End Date End Date OT [facility] 4 08/02/21 08/09/21 -- Goal Details: 4) PERFORM ITEM RETRIEVAL FROM HIGH/LOW POSISITONS WITH GOOD BALANCE/SAFETY. Educated the patient to the role of occupational therapy, plan of care, goals of therapy, rationalefor progressing mobility/ADLs, safe transfer techniques. Pt receptive to all education. RN notified of session outcome. Patient was left in bed with all needs met and equipment intact. Safety measures include bed alarm activated, oriented to call light and placed within reach, and personal items within reach. Mobility and ADL status posted at bedside and within medical record. * Mohini Duran, PT - 08/02/2021 9:31 AM CDT Physical Therapy 08/02/21 0931 General Chart Reviewed Yes Session Type Evaluation PT Received On 08/02/21 Safe Environment Arm Band Checked;Bed Alarm placed and activated;Call Light within Reach;Patient found in Supine;Overbed Table within Reach;Bed in Lowest Position with Wheels locked;Bed rails up per protocol Subjective Agreeable to Therapy Subjective Comment States she feels very weak. Additional Pertinent History Dx: complicated UTI, PMHX: breast ca, lue lymphedema, CVA '18, PE Family/Caregiver Present No Physical Therapy-Patient Goal Pt's goal is to get stronger. Precautions Precautions Fall risk Home Living Type of Home House Home Layout One level Home Access Stairs to enter without rails Entrance Stairs-Rails None Entrance Stairs-Number of Steps 2 Bathroom Shower/Tub Tub/shower unit Bathroom Toilet Standard Bathroom Equipment Grab bars in shower/tub;Shower chair Bathroom Accessibility Accessible Home Mobility Equipment Wheeled walker;Single point cane Prior Function Level of [place] Needs assistance with homemaking;Independent functional transfers;Independentwith ambulation;Needs assistance with ADLs Lives With Spouse;Daughter (daughter is her paid caregiver) Receives Help From Family Driving Yes Mode of Transportation Driven by self;Driven by others ADL Assistance Needs assistance Bathing (daughter assists) Vocational/Occupation On disability Fall within the last 6 months No Pain Assessment Pain Assessment 0-10 Pain Score 6 Pain Location Flank Pain Orientation Right Cognition Arousal/Alertness Alert Attention Span Appears intact Memory Appears intact Current communication Appears Intact Orientation Oriented X4 (person, place, time, situation) Following Commands Follows all commands and directions without difficulty Compliance/Behavior Easy to engage Coordination Movements are Fluid and Coordinated 1 Bed Mobility 1 Bed Mobility From 1 [...] Guard Assist Ambulation 1 Distance (ft) 1 80 Surface 1 Level tile Device 1 Wheeled walker Assistance 1 Contact Guard Assist RLE Assessment RLE Assessment WFL LLE Assessment LLE Assessment WFL PT Treatment/Exercise Comments PT Treatment/Exercise Comments bilat le strength grossly 4+/5 Assessment Prognosis Good Problem List Gait deviations;Decreased strength;Decreased endurance Plan Plan Plan of care initiated Recommendation/Plan PT Recommendation/Plan (S) Home with caregiver;Home with family PT Frequency 5-7x/wk Treatment/Interventions Endurance training;Gait training;Strengthening PT - Next Appointment 08/16/21 PT Evaluation Complete Yes Multi-Disciplinary Problems (from Physical Therapy) Active Problems Problem: Mobility Start Date: 08/02/21 Goal Start Date Expected End Date End Date LTG - Patient will demonstrate functional mobility with the following level of assist: 08/02/21 08/16/21 -- Goal Details: Pt will transfer and amb w walker, sba fo 1, 150 feet. Educated the patient to the role of physical therapy, plan of care, goals of therapy, rationale forprogressing mobility and home exercise program, pursed lip breathing, and home safety. Patient was left in bed with all needs met and equipment intact. Safety measures include handoff tonurse/tech, bed alarm activated, oriented to call light and placed within reach, personal items within reach, and bed placed in lowest position. Mobility and ADL status posted at bedside and within medical record. documented in this encounter H&P Notes * Prince Grimm MD - 08/01/2021 4:46 PM CDT Images from the original note were not included. History and Physical Date of Service: 08/01/2021 Primary Care Physician: Justen Gale MD [phone] CHIEF COMPLAINT: Patient is a 66 y.o. female with a PMHx significant for frequent UTIs and kidney stones, hypertension, diabetes, osteoarthritis, obesity . Presents to the ED with a chief complaint of right flank pain and urinary frequency. HPI: Patient presents emergency department with increasing abdominal pain and right- sided flank pain. She reports she started notice pain about a week ago with increasing intensity. She reports the pain starts from her right flank and radiates to her right lower abdomen. She also noticed urinary frequency and cloudy urine. Patient reports history of multiple UTIs and kidney stones in the past. She is allergic to multiple antibiotics. Blood work remarkable for a WBC of 13.3. UA sent to be cultured CT abdomen and pelvis shows slight prominence of the right renal pelvis wall which may be normal for patient, infection not excluded. Past Medical History: Diagnosis Date ??? Adiposity [...] ASPIRATION W IMAGE GUIDANCE N/A 07/25/2014 ??? KNEE ARTHROPLASTY Knee replacement ??? KNEE ARTHROPLASTY R knee replacement ??? OOPHORECTOMY ovary removed ??? OTHER SURGICAL HISTORY 2012 : Right Total Knee Replacement ??? OTHER SURGICAL HISTORY R ovary removed ??? US SOFT TISSUE ABSCESS DRAIN N/A 12/11/2014 ??? US SOFT TISSUE ABSCESS DRAIN N/A 10/24/2014 (Not in a hospital admission) Allergies Allergen Reactions ??? Ceftriaxone Anaphylaxis R ??? Ceftriaxone Sodium Shortness of breath ??? Cephalosporins Anaphylaxis ??? Lorazepam Unknown Aggrevates restless leg syndrome ??? Latex Rash ??? Levofloxacin Hives and Unknown ??? Piperacillin-Tazobactam Rash ??? Metoclopramide Hcl Unknown ??? Reslizumab Unknown ??? Ketorolac Itching ??? Metoclopramide Other (See comments) Other reaction(s): Hyperactive Restless leg syndrome ??? Oxycodone Vomiting ??? Pregabalin Other (See comments) ??? Trazodone Other (See comments) Shaky, restlessness, itching, throat swelling Social History Tobacco Use ??? Smoking status: Former Smoker ??? Smokeless tobacco: Never Used ??? Tobacco comment: remote tobacco use Substance Use Topics ??? Alcohol use: No Family History Problem Relation Age [...] Eyes: Negative. Respiratory: Negative. Cardiovascular: Negative. Gastrointestinal: Positive for abdominal pain and vomiting. Genitourinary: Positive for flank pain and frequency. Skin: Negative. Neurological: Negative. Hematological: Negative. Psychiatric/Behavioral: Negative. OBJECTIVE: Vitals: Arrival Vitals Temp 08/01/21 1233 36.8 ??C (98.3 ??F) Pulse 08/01/21 1233 87 Resp 08/01/21 1233 20 BP 08/01/21 1233 168/88 SpO2 08/01/21 1233 98 % Temp src -- Heart Rate Source 08/01/21 1310 Monitor Patient Position 08/01/21 1310 Lying BP Location 08/01/21 1310 Right arm FiO2 (%) -- Most Recent : Vitals: 08/01/21 1233 08/01/21 1310 08/01/21 1400 08/01/21 1645 BP: 168/88 167/96 155/88 (!) 154/115 BP Location: Right arm Right arm Patient Position: Lying Lying Pulse: 87 86 88 94 Resp: Temp: 36.8 ??C (98.3 ??F) SpO2: 98% 98% 97% 96% Weight: 127.4 kg (280 lb 13.9 oz) Height: 154.9 cm (5' 1 ) No intake/output data recorded. I/O this shift: In: 1999 [IV Piggyback:1999] Out: - Physical Exam: Physical Exam Constitutional: General: She is not in acute distress. Appearance: She is not ill-appearing. HENT: Head: Normocephalic and atraumatic. Nose: Nose normal. Eyes: Extraocular Movements: Extraocular movements intact. Cardiovascular: Rate and Rhythm: Normal rate and regular rhythm. Pulmonary: Effort: Pulmonary effort is normal. Abdominal: General: Abdomen is flat. Palpations: Abdomen is soft. Tenderness: There is abdominal tenderness. There is right CVA tenderness. Musculoskeletal: General: Normal range of motion. Cervical back: Normal range of motion. Skin: General: Skin is warm. Neurological: Mental Status: She is alert and oriented to person, place, and time. Psychiatric: Mood and Affect: Mood normal. Lab/Radiology/Diagnostic Review: Recent Results (from the past 24 hour(s)) CBC with auto differential Collection Time: 08/01/21 12:40 PM Result Value Ref Range WBC 13.3 (H) 3.8 - 9.9 K/cumm Hgb 13.9 11.9 - 15.5 g/dL Hct 44.3 35.6 - 45.5 % Plt 297 150 - 400 K/cumm MPV 9.0 (L) 9.1 - 12.3 fL RBC 4.82 3.90 - 5.20 M/cumm MCV 91.9 81.3 - 96.4 fL MCH 28.8 27.1 - 33.3 pg MCHC 31.4 (L) 32.3 - 35.7 g/dL RDW CV 14.1 11.1 - 14.9 % RDW SD 47.6 35.7 - 48.1 fL NRBC abs 0.00 0.00 - 0.01 K/cumm Comprehensive metabolic panel Collection Time: 08/01/21 12:40 PM Result Value Ref Range Sodium 137 135 - 145 mmol/L Potassium, pl 4.8 3.3 - 4.9 mmol/L Chloride 99 97 - 110 mmol/L CO2 30 22 - 32 mmol/L Anion gap 8 2 - 15 mmol/L BUN 18 8 - 25 mg/dL Creatinine 0.70 0.60 - 1.10 mg/dL Glucose 224 (H) 70 - 199 mg/dL Calcium 10.4 (H) 8.5 - 10.3 mg/dL Bilirubin, total 0.6 0.1 - 1.2 mg/dL Protein, pl 8.8 (H) 6.5 - 8.5 g/dL Albumin 4.1 3.5 - 5.0 g/dL Alk phos 91 40 - 130 Units/L ALT 21 7 - 45 Units/L AST 24 10 - 45 Units/L Lipase Collection Time: 08/01/21 12:40 PM Result Value Ref Range Lipase 18 10 - 99 Units/L Differential, auto Collection Time: 08/01/21 12:40 PM Result Value Ref Range Neutrophil abs 9.2 (H) 1.7 - 6.5 K/cumm Imm gran abs 0.0 0.0 - 0.1 K/cumm Lymphocyte abs 2.7 0.8 - 3.3 K/cumm Monocyte abs 1.0 (H) 0.2 - 0.8 K/cumm Eosinophil abs 0.3 0.0 - 0.5 K/cumm Basophil abs 0.0 0.0 - 0.1 K/cumm Neutrophil pct 69.5 % Imm gran pct 0.3 % Lymphocyte pct 20.0 % Monocyte pct 7.8 % Eosinophil pct 2.1 % Basophil pct 0.3 % eGFR Collection Time: 08/01/21 12:40 PM Result Value Ref Range eGFR 96 mL/min/1.73 m2 Urinalysis reflex to microscopic and culture Urine Collection Time: 08/01/21 12:56 PM Specimen: Urine Result Value Ref Range Color, ur Yellow Yellow Clarity, ur Cloudy (A) Clear Specific gravity, ur 1.011 1.003 - 1.030 pH, urine 6.0 Protein, ur ql 1+ (A) Negative Glucose, ur ql Negative Negative Ketones, ur Negative Negative Bilirubin, ur Negative Negative Blood, ur 3+ (A) Negative Urobilinogen, ur <2.0 <2.0 mg/dL Nitrite, ur Negative Negative Leukocyte esterase, ur 4+ (A) Negative UA reflex comment Reflex to microscopic UA will be performed. Urinalysis, microscopic only Collection Time: 08/01/21 12:56 PM Result Value Ref Range WBC, ur >50 (A) 0 - 5 /HPF RBC, ur >50 (A) 0 - 2 /HPF Epithelial cells, squamous, ur 21-50 (A) 0 - 5 /HPF Bacteria, ur Trace (A) Yeast, ur 3+ (A) Mucous, ur Present (A) Culture Reflex Comment Reflex to urine culture will be performed. CT Abdomen Pelvis W Contrast Result Date: 08/01/2021 Narrative: EXAM DESCRIPTION: CT ABDOMEN PELVIS W CONTRAST REASON FOR STUDY: Flank pain, kidney stone suspected, RLQ abdominal pain, appendicitis suspected (Age => 15y) Pt c/o lower abd pain x 1 wk along with LBP and urine frequency. Hx of kidney stones. Denies fever. Pt also nauseated. hx of chcole, , hernia repair, oophorectomy. . TECHNIQUE: CT scan of the abdomen and pelvis performed with intravenous and no oral contrast using helical scanning technique. For intravenous contrast,the patient received 100 mL of IOVERSOL 350 Reconstructed coronal and sagittal MPR images reviewed.All images stored on PACS. Automated exposure control was used as a dose optimization technique for this examination. COMPARISON: 10/04/2018 and 11/11/2017 FINDINGS: CT Abdomen: Cluster of nodularityat the medial aspect in the left lower lobe. Small hypodense mass of the right kidney again noted that should represent a cyst. No hydronephrosis. Right renal pelvic wall may demonstrate slight hypervascular enhancement. This is a questionable observation. No free air, free fluid or pathologic sized nodes of the abdomen. CT Pelvis: Appendix identified. No appendicitis. No ureteral lithiasis or urinary bladder lithiasis. No free air, free fluid or pathologic sized nodes of the pelvis. Colonic diverticulosis. No diverticulitis. Postoperative changes of the anterior pelvic wall again noted. Small amount of fluid associated with periumbilical region again noted. Spondylosis of the spine. IMPRESSION: Slight prominence of the right renal pelvis wall which may be normal for patient. Infection not excluded. Recommend appropriate lab work. No bowel obstruction or appendicitis. THIS IS AN ELECTRON ICALLY VERIFIED FINAL REPORT 08/01/2021 3:08 PM - Electronically signed by Noe Morfin M.D. JS: SHANNON Report ID: [id number] Reading Location: [place] [address] ASSESSMENT/PLAN: Principal Problem: 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) Resolved Problems: No resolved hospital problems. Full Code 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/early pyelonephritis Multiple antibiotic drug allergies Case was discussed with pharmacy by ER provider, recommended ertapenem UCX pending WBC 13.3 DM-patient takes 50 units of Lantus in the morning and 22 units of Humalog with meals. However she reports he has had a poor appetite and has not been eating well especially with her abdominal pain and mild nausea. Will start the patient on 32 units of Lantus in the morning along with 11 units of lispro with sliding scale insulin. Adjust insulin as needed Restless leg syndrome-continue home Requip Depression/anxiety, continue home medications History of DVT, continue Xarelto Breast cancer- continue Aromasin ESTIMATED LENGTH OF STAY: 2-3 days Approximate time spent for chart review, assessment, interview, and note - 51 min My total encounter time on 08/01/2021 was 51 minutes which was spent in the activities documented inthe note. This includes time spent prior to the visit and after the visit in direct care of the patient. This time does not include time spent in any separately reportable services. Medical Decision Making Complexity: Moderate DVT prophylaxis:lovenox sc PT/OT Case discussed with ER provider Voice recognition software [employer] may have been used to dictate and transcribe this document. Parts Cataloguer variances may occur. Despite proofreading, typographical errors may occur. Prince Varela MD 08/01/2021 4:47 PM documented in this encounter Nursing Notes * Marily Pryor RN - 08/03/2021 4:00 PM CDT Denies Tremors or Itching or flush feeling * Fritz Cohen RN - 08/02/2021 7:47 AM CDT Assessment of patient???s baseline is established at the beginning of the shift in flowsheets. Patient reassessed per order, unexpected findings and/or deviations from baseline are captured in flowsheets. Frequent safety checks and comfort rounds provided. Orders and/or nursing care completed as indicated. Patient monitored for response to interventions and treatments as documented in flowsheets.Patient was kept safe during this shift. She needed pain medication once, and used the bedside commode for voiding. BiPAP machine was ordered and used all night. Antibiotics therapy was started last night. . Plan of care discussed with patient/customer success representative, including as it relates to Principal Problem: 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) Patient progressing. Clinical goals for the shift No fall - Antibiotics therapy. Education providedincludes Fall Prevention. Patient and/or customer success representative Verbalizes understanding. Will continue to monitor. documented in this encounter ED Notes * Kajal Poole RN - 08/01/2021 4:28 PM CDT AROMASIN cancer med with pt Will bring it upstairs [place] 7.5-325 - 52 and half tabs counted by this RN in front of Pt will also come upstairs with pt,unable to have someone burr picker, unwell and lives 45mins from here Kajal Poole RN 08/01/21 1629 * Kajal Poole RN - 08/01/2021 4:16 PM CDT Ertapenem to be started this PM - per Pharmacy after discussion with Kajal Villagran RN 08/01/21 1617 * Jamia Rangel DO - 08/01/2021 12:57 PM CDT HPI Chief Complaint Patient presents with ??? Flank Pain ??? Abdominal Pain ??? Urinary Frequency HPI 12:57 PM Karly Marques is a very pleasant 66 y.o. female presenting to the ED c/o abdominal pain and flank pain. Patient reports she has noticed twinges of her flank pain approximately a week ago. Over the last two days patient has worsened with pain in the right flank that radiates across her abdomen. Patient reports history of UTIs and kidney stones. Patient reports chronic back issues but states this pain is different. No heavy lifting or recent injury. No fever, cough, shortness of breath or chest pain. No vomiting or diarrhea. No other complaints. Patient History: Past Medical History: Diagnosis [...] ASPIRATION W IMAGE GUIDANCE N/A 07/25/2014 ??? KNEE ARTHROPLASTY Knee replacement ??? KNEE ARTHROPLASTY R knee replacement ??? OOPHORECTOMY ovary removed ??? OTHER SURGICAL [...] Alcohol use: No ??? Drug use: No Current Facility-Administered Medications: ??? morphine injection 2 mg, 2 mg, intravenous, Once ??? ondansetron (ZOFRAN) injection 4 mg, 4 mg, intravenous, Once ??? sodium chloride 0.9% bolus 1,000 mL, 1,000 mL, intravenous, Once Current Outpatient Medications: ??? amitriptyline (ELAVIL) 25 mg tablet ??? clonazePAM (KlonoPIN) 1 mg tablet ??? exemestane (AROMASIN) 25 mg tablet ??? HYDROcodone-acetaminophen (NORCO) 5-325 mg per tablet ??? insulin glargine (LANTUS) 100 unit/mL injection ??? insulin lispro (HumaLOG) 100 unit/mL injection ??? lisinopril (PRINIVIL,ZESTRIL) 20 mg tablet ??? oxybutynin (DITROPAN) 5 mg tablet ??? rivaroxaban (Xarelto) 20 mg tablet ??? rOPINIRole (REQUIP) 5 mg tablet Review of Systems Review of Systems All systems reviewed and are neg or non contributory for this patients presentation today other than as stated in the HPI . Physical Exam ED Triage Vitals Temp Pulse Resp BP SpO2 08/01/21 1233 08/01/21 1233 08/01/21 1233 08/01/21 1233 08/01/21 1233 36.8 ??C (98.3 ??F) 87 20 168/88 98 % Temp src Heart Rate Source Patient Position BP Location FiO2 (%) -- 08/01/21 1310 08/01/21 1310 08/01/21 1310 -- Monitor Lying Right arm Constitutional: alert, awake, very pleasant, in distress Head: normocephalic, atraumatic Eyes: EOMI, conjunctival wnl Throat: airway patent Neck: trachea midline Heart: regular rate and rhythm Lungs: clear to auscultation bilaterally, no wheezes or rales Abdomen: soft, nontender, normal bowel sounds, no guarding or rebound, right CVP ttp Extremities: normal color, no edema Neuro/Musculoskeletal: nonfocal motor exam, AAOx3 Skin: no rashes, warm, dry, intact Psych: normal mood and affect, no SI/HI Physical Exam Procedures MDM Labs Reviewed URINALYSIS AND REFLEX TO MICROSCOPIC AND CULTURE - Abnormal Result Value Color, ur Yellow Clarity, ur Cloudy (*) Specific gravity, ur 1.011 pH, urine 6.0 Protein, ur ql 1+ (*) Glucose, ur ql Negative Ketones, ur Negative Bilirubin, ur Negative Blood, ur 3+ (*) Urobilinogen, ur <2.0 Nitrite, ur Negative [...] tendency for uric acid stone formation. Source: [place] [employer].Last revised 05-04-2017 CBC WITH AUTO DIFFERENTIAL - Abnormal WBC 13.3 (*) Hgb 13.9 Hct 44.3 Plt 297 MPV 9.0 (*) RBC 4.82 MCV 91.9 MCH 28.8 MCHC 31.4 (*) RDW CV 14.1 RDW SD 47.6 NRBC abs 0.00 COMPREHENSIVE METABOLIC PANEL - Abnormal Sodium 137 Potassium, pl 4.8 Chloride 99 CO2 30 Anion gap 8 BUN 18 Creatinine 0.70 Glucose 224 (*) Calcium 10.4 (*) Bilirubin, total 0.6 Protein, pl 8.8 (*) Albumin 4.1 Alk phos 91 ALT 21 AST 24 DIFFERENTIAL AUTO - Abnormal Neutrophil abs 9.2 (*) Imm gran abs 0.0 Lymphocyte abs 2.7 Monocyte abs 1.0 (*) Eosinophil abs 0.3 Basophil abs 0.0 Neutrophil pct 69.5 Imm gran pct 0.3 Lymphocyte pct 20.0 Monocyte pct 7.8 Eosinophil pct 2.1 Basophil pct 0.3 URINALYSIS, MICROSCOPIC ONLY - Abnormal WBC, ur >50 (*) RBC, ur >50 (*) Epithelial cells, squamous, ur 21-50 (*) Bacteria, ur Trace (*) Yeast, ur 3+ (*) Mucous, ur Present (*) Culture Reflex Comment Reflex to urine culture will be performed. URINE CULTURE LIPASE Lipase [address] Abdomen Pelvis W Contrast IMPRESSION: Slight prominence of the right renal pelvis wall which may be normal for patient. Infection not excluded. Recommend appropriate lab work. No bowel obstruction or appendicitis. THIS IS AN ELECTRONICALLY VERIFIED FINAL REPORT 08/01/2021 3:08 PM - Electronically signed by Noe Morfin M.D. JS: SHANNON Report ID: [id number] Reading Location: [id number] BP 168/88 Pulse 87 Temp 36.8 ??C (98.3 ??F) Resp 20 Ht 154.9 cm (5' 1 ) Wt 127.4 kg (280 lb 13.9 oz) SpO2 98% BMI 53.07 kg/m?? MDM ED Course as of 08/01/21 1643 Time: 08/01 1347 Comment: Extensive drug allergies. UTI. Bactrim ordered By: Jamia Rangel DO Time: 08/01 1348 Value: Leukocyte esterase, ur(!): 4+ Comment: (Reviewed) By: Jamia Rangel DO Time: 08/01 8821 Comment: Rechecked pt. Pt still in pain. Multiple doses of pain meds given. Pain med ordered. Discussed all test results including imaging results in detail and plan for admission for early pyelonephritis. Patient agreeable to plan. By: Jamia Rangel DO Time: 08/02 1543 Comment: Spoke with Bubba connell, multiple drug allergies, recommends ertapenem. By: Jamia Rangel DO Time: 08/02 1547 Comment: Paged hospitalist By: Jamia Rangel DO Time: 08/01 161 Comment: Spoke with Dr. Varela, hospitalist regarding patient's case who accepted the patient for admission. Anticipate greater than 2 midnight stay. By: Jamia Rangel DO This examination was transcribed using the [employer] computerized voice recognition system without human distribution clerk. In an effort to expedite patient care, this report has not been adjusted for typographical, grammatical, and syntax by a trained medical front desk coordinator. Clinical Impression: 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) Intractable pain Jamia Rangel DO 08/01/21 1643 * Donna Alexandra RN - 08/01/2021 12:31 PM CDT Pt c/o lower abd pain x 1 wk along with LBP and urine frequency. Hx of kidney stones. Denies fever.Pt also nauseated. documented in this encounter Miscellaneous Notes * Plan of Tyrese - Flower Villa RN - 08/04/2021 2:52 AM CDT Problem: Health Behavior: Goal: Understanding [...] injury in home environment Outcome: Progressing Goals: IV abx Summary: Pt is a&ox4. Breathing unlabored and even. Scheduled medications given as ordered. PRNmeds given as indicated. VSS. Fall precautions taken. Call light within reach. * Provider Query - Antonella Christianson MD - 08/03/2021 4:29 PM CDT Specify the significance of the abnormal BMI (body mass index) and document in the medical record and on the form below. Elevated BMI ___Overweight ___Obesity __X_Morbid (severe) Obesity ___Other, specify below ___Clinically unable to determine Additional Provider Response: Clinical Indicators/Treatments: Admitted 08/01/21 for abdominal pain. History: HTN, DM. Weight: 129.4 kg / 285 lbs BMI: 53.9 Treatment: Weight monitoring, observation. BMI definitions per www.NHLBI.nih.gov BMI Weight Status <18.5 Underweight 18.5 to 24.9 Normal/Healthy 25 to 29.9 Overweight 30 to 39.9 Obesity >40 Extreme Obesity (Morbid) Use of terms such as likely, suspected, possible, or probable (associated with a specific diagnosisthat is being evaluated, monitored, or treated as if it exists) are acceptable and can be coded in the inpatient setting when documented at the time of discharge. This documentation will become part of the patient???s medical record. * Plan of Tyrese - Flower Villa RN - 08/03/2021 5:05 AM CDT Problem: Health Behavior: Goal: Understanding [...] injury in home environment Outcome: Progressing Goals: iv abx Summary: Pt is a&ox4. Breathing unlabored and even. Pt denies pain. VSS. Scheduled medications given as ordered. After IV ertapenem, pt verbalized to this nurse I feel tremors all over my body and my tongue, my mouth is dry and feel like im unable to swallow. VSS. Pt denied SOB,chest pain, dizziness or itchiness.This nurse notified Oncall. Orders received. Meds administered. Pt verbalized relief. IV abx on hold. Fall precautions taken. Call light within reach. * Plan of Care - Ricarda Albert RN - 08/02/2021 8:15 AM CDT Goals: Manage pain, monitor blood sugar, comfort, safety Summary: Problem: Health Behavior: Goal: Understanding of [...] and injury in home environment Outcome: Progressing * Plan of Care - Lindsey Maynard RN - 08/01/2021 5:54 PM CDT Goals: Problem: Safety: Goal: Will remain free from falls Outcome: Progressing Summary: Safety maintained. Call light within reach. documented in this encounter Plan of Treatment Not on file documented as of this encounter Procedures Procedure Name Priority Date/Time Associated Diagnosis Comments POCT GLUCOSE DEVICE Routine 08/04/2021 7 :44 AM CDT POCT GLUCOSE DEVICE Routine 08/03/2021 8 :28 PM CDT POCT GLUCOSE DEVICE Routine 08/03/2021 3 :47 PM CDT POCT GLUCOSE DEVICE Routine 08/03/2021 1 1:48 AM CDT POCT GLUCOSE DEVICE Routine 08/03/2021 7 :50 AM CDT POCT GLUCOSE DEVICE Routine 08/02/2021 9 :51 PM CDT POCT GLUCOSE DEVICE Routine 08/02/2021 5 :02 PM CDT POCT GLUCOSE DEVICE Routine 08/02/2021 1 2:14 PM CDT POCT GLUCOSE DEVICE Routine 08/02/2021 8 :18 AM CDT EGFR Routine 08/02/2021 3:27 AM CDT DIFFERENTIAL AUTO Routine 08/02/2021 3:2 7 AM CDT CBC WITH AUTO DIFFERENTIAL Routine 08/02/2021 3:27 AM CDT BASIC METABOLIC PANEL Routine 08/02/2021 3:27 AM CDT POCT GLUCOSE DEVICE Routine 08/01/2021 9 :56 PM CDT POCT GLUCOSE DEVICE Routine 08/01/2021 6 :[address] ABDOMEN PELVIS W CONTRAST ED 08/01/2021 1:50 PM CDT URINALYSIS AND REFLEX TO MICROSCOPIC AND CULTURE STAT 08/01/2021 12:56 PM CDT URINALYSIS, MICROSCOPIC ONLY STAT 08/01/2021 12:56 PM CDT URINE CULTURE STAT 08/01/2021 12:56 PM CDT EGFR STAT 08/01/2021 12:40 PM CDT DIFFERENTIAL AUTO STAT 08/01/2021 12: 40 PM CDT CBC WITH AUTO DIFFERENTIAL STAT 08/01/2021 12:40 PM CDT LIPASE STAT 08/01/2021 12:40 PM CDT COMPREHENSIVE METABOLIC PANEL STAT 08/01/2021 12:40 PM CDT documented in this encounter Results * POCT glucose (08/04/2021 7:44 AM CDT) Glucose, POC 187 70 - 199 mg/dL MARY JANE PHAM Comment:Testing performed by : [address] [id number] Blood 08/04/2021 7:44 AM CDT 08/04/2021 7:44 AM CDT Antonella Christianson MD LAB POCT ORDERABLES - DEVICE F inal Result MARY JANE PHAM [id number] [facility] Department [place] [address] * (ABNORMAL) POCT glucose (08/03/2021 8:28 PM CDT) Glucose, POC 313(H) 70 - 199 mg/dL MARY JANE PHAM Comment:Testing performed by : [address] [address] Glucose comment 1 Use This Result MARY JANE PHAM Comment:Testing performed by : [address] [id number] Blood 08/03/2021 8:28 PM CDT 08/03/2021 8:28 PM CDT Antonella Christianson MD LAB POCT ORDERABLES - DEVICE F inal Result Performing Organization Address [facility] de Phone Number MARY JANE [address] [address] * (ABNORMAL) POCT glucose (08/03/2021 3:47 PM CDT) Glucose, POC 208(H) 70 - 199 mg/dL MARY JANE Comment:Testing performed by : [address] [address] Glucose comment 1 Use This Result MARY JANE Comment:Testing performed by : [address] [id number] Blood 08/03/2021 3:47 PM CDT 08/03/2021 3:47 PM CDT Result [facility] Antonella Christianson MD LAB POCT ORDERABLES - DEVICE F inal Result Performing Organization Address [facility] de Phone Number [address] [address] * (ABNORMAL) POCT glucose (08/03/2021 11:48 AM CDT) Glucose, POC 273(H) 70 - 199 mg/dL MARY JANE Comment:Testing performed by : [address] [address] Glucose comment 1 Use This Result MARY JANE Comment:Testing performed by : [address] [id number] Blood 08/03/2021 11:4 8 AM CDT 08/03/2021 11:48 AM CDT Antonella Christianson MD LAB POCT ORDERABLES - DEVICE F inal Result Performing Organization Address [facility] de Phone Number MARY JANE [address] [place] [address] * (ABNORMAL) POCT glucose (08/03/2021 7:50 AM CDT) Glucose, POC 245(H) 70 - 199 mg/dL MARY JANE Comment:Testing performed by : [address] [address] Glucose comment 1 Use This Result MARY JANE Comment:Testing performed by : [address] [id number] Blood 08/03/2021 7:50 AM CDT 08/03/2021 7:50 AM CDT us Antonella Christianson MD LAB POCT ORDERABLES - DEVICE F inal Result Performing Organization Address [facility]/[employer] [facility] de Phone Number [address] [address] * (ABNORMAL) POCT glucose (08/02/2021 9:51 PM CDT) Glucose, POC 236(H) 70 - 199 mg/dL MARY JANE Comment:Testing performed by : [address] [address] Blood 08/02/2021 9:51 PM CDT 08/02/2021 9:51 PM CDT us Sravan Patel MD LAB POCT ORDERABLES - DEV ICE Final Result Performing Organization Address [facility] Co de Phone Number [address] [address] * POCT glucose (08/02/2021 5:02 PM CDT) Glucose, POC 176 70 - 199 mg/dL MARY JANE Comment:Testing performed by : [address] [address] Blood 08/02/2021 5:02 PM CDT 08/02/2021 5:02 PM CDT Sravan Patel MD LAB POCT ORDERABLES - DEV ICE Final Result Performing Organization Address [facility] [employer] de Phone Number MARY JANE [address] [facility] [place] [address] * POCT glucose (08/02/2021 12:14 PM CDT) Glucose, POC 124 70 - 199 mg/dL MARY JANE Comment:Testing performed by : [address] [address] Glucose comment 1 Use This Result MARY JANE Comment:Testing performed by : [address] [address] Glucose comment 2 Will Notify Nurse MARY JANE Comment:Testing performed by : [address] [address] Blood 08/02/2021 12:1 4 PM CDT 08/02/2021 12:14 PM CDT Sravan Patel MD LAB POCT ORDERABLES - DEV ICE Final Result Performing Organization Address [facility] [employer] de Phone Number MARY JANE [facility] [place] [address] * POCT glucose (08/02/2021 8:18 AM CDT) Glucose, POC 127 70 - 199 mg/dL MARY JANE Comment:Testing performed by : [address] [address] Glucose comment 1 Use This Result MARY JANE Comment:Testing performed by : [address] [address] Glucose comment 2 Will Notify Nurse MARY JANE Comment:Testing performed by : [address] [address] Blood 08/02/2021 8:18 AM CDT 08/02/2021 8:18 AM CDT us Sravan Patel MD LAB POCT ORDERABLES - DEV ICE Final Result Performing Organization Address [facility] [employer] de Phone Number MARY JANE [address] [facility] Department [place] [address] * eGFR (08/02/2021 3:27 AM CDT) Pathologist [facility] eGFR 96 mL/min/1. 73 m2 MARY [...] was last reviewed 2021. Testing performed by: [facility], [address] [place] [address], [place]., [address] Blood 08/02/2021 3:27 AM CDT 08/02/2021 3:50 AM CDT us Prince Varela MD LAB BLOOD ORDERABLE S Final Result Performing Organization Address City/[facility] [employer] de Phone Number MARY JANE [address] [facility] Department [place] [address] * (ABNORMAL) Differential, auto (08/02/2021 3:27 AM CDT) Neutrophil abs 9.0(H) 1.7 - 6.5 K/cumm MARY JANE Comment:Testing performed by : [address] [address] Imm gran abs 0.1 0.0 - 0.1 K/cumm MARY JANE Comment:Testing performed by : [address] [address] Lymphocyte abs 2.8 0.8 - 3.3 K/cumm MARY JANE Comment:Testing performed by : [address] [address] Monocyte abs 0.9(H) 0.2 - 0.8 K/cumm MARY JANE Comment:Testing performed by : [address] [address] Eosinophil abs 0.3 0.0 - 0.5 K/cumm MARY JANE Comment:Testing performed by : [address] [address] Basophil abs 0.0 0.0 - 0.1 K/cumm MARY JANE Comment:Testing performed by : [address] [address] Neutrophil pct 68.6 % MARY JANE Comment: Interpretive Data Percent cell count reference ranges are not reported, since discordance with absolute values may lead to misinterpretation of CBC data. Current Interpretive Data was last revised on 2017. Testing performed by: [address] [address] Imm gran pct 0.5 % MARY JANE Comment: Interpretive Data Percent cell count reference ranges are not reported, since discordance with absolute values may lead to misinterpretation of CBC data. Current Interpretive Data was last revised on 2017. Testing performed by: [address] [address] Lymphocyte pct 21.3 % MARY JANE Comment: Interpretive Data Percent cell count reference ranges are not reported, since discordance with absolute values may lead to misinterpretation of CBC data. Current Interpretive Data was last revised on 2017. Testing performed by: [address] [address] Monocyte pct 7.2 % MARY JANE Comment: Interpretive Data Percent cell count reference ranges are not reported, since discordance with absolute values may lead to misinterpretation of CBC data. Current Interpretive Data was last revised on 2017. Testing performed by: [address] [address] Eosinophil pct 2.1 % MARY JANE Comment: Interpretive Data Percent cell count reference ranges are not reported, since discordance with absolute values may lead to misinterpretation of CBC data. Current Interpretive Data was last revised on 2017. Testing performed by: [address] [address] Basophil pct 0.3 % MARY JANE Comment: Interpretive Data Percent cell count reference ranges are not reported, since discordance with absolute values may lead to misinterpretation of CBC data. Current Interpretive Data was last revised on 2017. Testing performed by: [address] [address] Blood 08/02/2021 3:27 AM CDT 08/02/2021 3:50 AM CDT Prince Varela MD LAB BLOOD ORDERABLE S Final Result MARY JANE [address] [facility] Department of Laboratories [place], [place] [id number] * Basic metabolic panel (08/02/2021 3:27 AM CDT) Sodium 135 135 - 145 mmol/L MARY JANE PHAM Comment:Testing performed by : [address] [address] Potassium, pl 4.5 3.3 - 4.9 mmol/L MARY JANE PHAM Comment:Testing performed by : [address] [address] Chloride 99 97 - 110 mmol/L MARY JANE Comment:Testing performed by : [address] [address] CO2 25 22 - 32 mmol/L MARY JANE Comment:Testing performed by : [address] [address] Anion gap 11 2 - 15 mmol/L MARY JANE Comment:Testing performed by : [address] [address] BUN 16 8 - 25 mg/dL MARY JANE Comment:Testing performed by : [address] [address] Creatinine 0.70 0.60 - 1.10 mg/dL MARY JANE Comment:Testing performed by : [address] [address] Glucose 148 70 - 199 mg/dL MARY JANE Comment: [...] was last revised 2017. Testing performed by: [address] [address] Calcium 9.6 8.5 - 10.3 mg/dL MARY JANE Comment:Testing performed by : [address] [address] Blood 08/02/2021 3:27 AM CDT 08/02/2021 3:50 AM CDT us Prince Varela MD LAB BLOOD ORDERABLE S Final Result BCPUJA [address] [facility] Department of Laboratories [place], [place] [id number] * (ABNORMAL) CBC with auto differential (08/02/2021 3:27 AM CDT) [facility] Signature WBC 13.1(H) 3.8 - 9.9 K/cumm MARY JANE Comment:Testing performed by : [address], [address] Hgb 12.4 11.9 - 15.5 g/dL MARY JANE Comment:Testing performed by : [address], [address] Hct 39.4 35.6 - 45.5 % MARY JANE Comment:Testing performed by : [address], [address] Plt 298 150 - 400 K/cumm MARY JANE Comment:Testing performed by : [address], [address] MPV 9.7 9.1 - 12.3 fL MARY JANE Comment:Testing performed by : [address], [address] RBC 4.33 3.90 - 5.20 M/cumm MARY JANE Comment:Testing performed by : [address], [address] MCV 91.0 81.3 - 96.4 fL MARY JANE Comment:Testing performed by : [address], [address] MCH 28.6 27.1 - 33.3 pg MARY JANE Comment:Testing performed by : [address], [address] MCHC 31.5(L) 32.3 - 35.7 g/dL MARY JANE Comment:Testing performed by : [address], [address] RDW CV 14.0 11.1 - 14.9 % MARY JANE Comment:Testing performed by : [address], [address] RDW SD 47.2 35.7 - 48.1 fL MARY JANE Comment:Testing performed by : [address], [address] NRBC abs 0.00 0.00 - 0.01 K/cumm MARY JANE Comment:Testing performed by : [facility], [address] [place] [address]., [address] Blood 08/02/2021 3:27 AM CDT 08/02/2021 3:50 AM CDT Prince Varela MD LAB BLOOD ORDERABLE S Final Result Performing Organization Address [facility] [employer] de Phone Number [address] [place] [address] * POCT glucose (08/01/2021 9:56 PM CDT) Glucose, POC 138 70 - 199 mg/dL MARY JANE Comment:Testing performed by : [address] [address] Glucose comment 1 Use This Result MARY JANE Comment:Testing performed by : [address] [address] Blood 08/01/2021 9:56 PM CDT 08/01/2021 9:56 PM CDT Result [facility] Prince Varela MD LAB POCT ORDERABLES - DEVICE Final Result Performing Organization Address [facility] de Phone Number [address] [place] [address] * POCT glucose (08/01/2021 6:04 PM CDT) Glucose, POC 88 70 - 199 mg/dL MARY JANE Comment:Testing performed by : [address] [address] Blood 08/01/2021 6:04 PM CDT 08/01/2021 6:04 PM CDT Prince Varela MD LAB POCT ORDERABLES - DEVICE Final Result Performing Organization Address City/[facility]/ZIP Co de Phone Number [address] [place] [address] * CT Abdomen Pelvis W Contrast (08/01/2021 1:50 PM CDT) Anatomical Region Laterality Modality Body N/A Computed Tomogra phy 08/01/2021 2:58 PM CDT Narrative 08/01/2021 3:08 PM CDT EXAM DESCRIPTION: ?? CT ABDOMEN PELVIS W CONTRAST REASON FOR STUDY: ?? Flank pain, kidney stone suspected, RLQ abdominal pain, appendicitis suspected (Age => 15y) ?? Pt c/o lower abd pain x 1 wk along with LBP and urine frequency. Hx of kidney stones. Denies fever. Pt also nauseated. hx of chcole, , hernia repair, oophorectomy. ?. ?? TECHNIQUE: CT scan of the abdomen and pelvis performed with intravenous and ?? no ??oral contrast using helical scanning technique. ??For intravenous contrast, the patient received 100 mL of IOVERSOL 350 Reconstructed coronal and sagittal MPR images reviewed. All images stored on PACS. Automated exposure control was used as a dose optimization technique for this examination. COMPARISON: ?? 10/04/2018 and 11/11/2017 FINDINGS: CT Abdomen: ??Cluster of nodularity at the medial aspect in the left lower lobe. ??Small hypodense mass of the right kidney again noted that should represent a cyst. ?? No hydronephrosis. ??Right renal pelvic wall may demonstrate slight hypervascular enhancement. ??This is a questionable observation. ??No free air, free fluid or pathologic sized nodes of the abdomen. CT Pelvis: ??Appendix identified. ??No appendicitis. ??No ureteral lithiasis or urinary bladder lithiasis. ??No free air, free fluid or pathologic sized nodes of the pelvis. ??Colonic diverticulosis. ??No diverticulitis. ??Postoperative changes of the anterior pelvic wall again noted. ??Small amount of fluid associated with periumbilical region again noted. ??Spondylosis of the spine. IMPRESSION: ?? Slight prominence of the right renal pelvis wall which may be normal for patient. ??Infection not excluded. ??Recommend appropriate lab work. No bowel obstruction or appendicitis. THIS IS AN ELECTRONICALLY VERIFIED FINAL REPORT 08/01/2021 3:08 PM - Electronically signed by ??Noe ORTEGA: SHANNON D: ??08/01/2021 3:08 PM T: ??08/01/2021 3:08 PM Report ID: [id number] Reading Location: ??[id number] Procedure Note ShelbieNoe, DO - 08/01/2021 EXAM DESCRIPTION: CT ABDOMEN PELVIS W CONTRAST REASON FOR STUDY: Flank pain, kidney stone suspected, RLQ abdominalpain, appendicitis suspected (Age => 15y) Pt c/o lower abd pain x 1 wk along with LBP and urine frequency. Hx ofkidney stones. Denies fever. Pt also nauseated. hx of chcole, , hernia repair, oophorectomy. . TECHNIQUE: CT scan of the abdomen and pelvis performed with intravenousand no oral contrast using helical scanning technique. For intravenous contrast, the patient received 100 mL of IOVERSOL 350 Reconstructed coronal and sagittal MPR images reviewed. All images storedon PACS. Automated exposure control was used as a dose optimization techniquefor this examination. COMPARISON: 10/04/2018 and 11/11/2017 FINDINGS: CT Abdomen: Cluster of nodularity at the medial aspect in the left lower lobe.Small hypodense mass of the right kidney again noted that should represent acyst. No hydronephrosis. Right renal pelvic wall may demonstrate slight hypervascular enhancement. This is a questionable observation. No freeair, free fluid or pathologic sized nodes of the abdomen. CT Pelvis: Appendix identified. No appendicitis. No ureteral lithiasis or urinary bladder lithiasis. No free air, free fluid or pathologic sized nodes ofthe pelvis. Colonic diverticulosis. No diverticulitis. Postoperativechanges of the anterior pelvic wall again noted. Small amount of fluid associatedwith periumbilical region again noted. Spondylosis of the spine. IMPRESSION: Slight prominence of the right renal pelvis wall which may be normalfor patient. Infection not excluded. Recommend appropriate lab work. No bowel obstruction or appendicitis. THIS IS AN ELECTRONICALLY VERIFIED FINAL REPORT 08/01/2021 3:08 PM - Electronically signed by Noe Morfin M.D. JS: SHANNON Report ID: [id number] Reading Location: [id number] Rosa [facility]KE[facility] IMG CT PROCEDURES Final Result * (ABNORMAL) Urine culture Urine (08/01/2021 12:56 PM CDT) Report Final Report: Greater than or equal to 100,000 colonies/mL of Escherichia coli (.) MARY JANE PHAM Comment:Testing performed by : [facility], [address] [facility] [address] Organism ESCHERICHIA COLI MARY JANE Urine 08/01/2021 12:5 6 PM CDT 08/01/2021 3:21 PM CDT Narrative MARY JANE - 08/03/2021 12:52 PM CDT Urine culture reflexed based upon urinalysis results. Testing performed by [facility] Laboratory ([phone]) Organism Antibiotic Method Susceptibility Escherichia coli Ampicillin [...] INTERPRETATION Susceptible Escherichia coli Cefdinir INTERPRETATION Susceptible Rosa MCKEON LAB MICROBIOLOGY - GENERAL ORDE RABLES Final Result MARY JANE [address] [facility] Department [place] [address] * (ABNORMAL) Urinalysis, microscopic only (08/01/2021 12:56 PM CDT) WBC, ur >50(A) 0 - 5 /HPF MARY JANE PHAM Comment:Testing performed by : [facility], [address] [place] [address]., [address] RBC, ur >50(A) 0 - 2 /HPF MARY JANE Comment:Testing performed by : [address] [address] Epithelial cells, squamous, ur 21-50(A) 0 - 5 /HPF MARY JANE Comment: Suggestive of contamination. Consider recollection by clean catch. Testing performed by: [address] [address] Bacteria, ur Trace(A) MARY JANE Comment:Testing performed by : [address] [address] Yeast, ur 3+(A) MARY JANE Comment:Testing performed by : [address] [address] Mucous, ur Present(A) MARY JANE Comment:Testing performed by : [address] [address] Culture Reflex Comment Reflex to urine culture will be performed. MARY JANE Comment:Testing performed by : [address] [address] Urine 08/01/2021 12:5 6 PM CDT 08/01/2021 12:58 PM CDT Rosa MCKEON LAB URINE ORDERABLES Final Resu lt MARY JANE [address] [facility] Department of Laboratories [place], [place] [id number] * (ABNORMAL) Urinalysis reflex to microscopic and culture Urine (08/01/2021 12:56 PM CDT) Color, ur Yellow Yellow MARY JANE Comment:Testing performed by : [address] [address] Clarity, ur Cloudy(A) Clear MARY JANE Comment:Testing performed by : [address] [address] Specific gravity, ur 1.011 1.003 - 1.030 MARY JANE Comment:Testing performed by : [address] [address] pH, urine 6.0 MARY JANE Comment:Testing performed by : [place] [address], [place]., [address] Protein, ur ql 1+(A) Negative MARY JANE Comment:Testing performed by : [address], [place]., [address] Glucose, ur ql Negative Negative MARY JANE Comment:Testing performed by : [address], [place]., [address] Ketones, ur Negative Negative MARY JANE Comment:Testing performed by : [address], [place]., [address] Bilirubin, ur Negative Negative MARY JANE Comment:Testing performed by : [address], [place]., [address] Blood, ur 3+(A) Negative MARY JANE Comment:Testing performed by : [address], [place]., [address] Urobilinogen, ur <2.0 <2.0 mg/dL MARY JANE Comment:Testing performed by : [address], [place]., [address] Nitrite, ur Negative Negative MARY JANE Comment:Testing performed by : [address], [place]., [address] Leukocyte esterase, ur 4+(A) Negative MARY JANE Comment:Testing performed by : [address], [place]., [address] UA reflex comment Reflex to microscopic UA will be performed. MARY JANE Comment:Testing performed by : [address], [place]., [address] Urine 08/01/2021 12:5 6 PM CDT 08/01/2021 12:58 PM CDT Narrative MARY JANE - 08/01/2021 1:02 PM CDT ?? Urine pH is affected by diet, medications, systemic acid-base disturbances, and renal tubular function. ??pH may affect urinary stone formation. ??For example, urine pH below 6.0 may help reduce the tendency for calcium phosphate stones and pH greater than 6.0 may reduce the tendency for uric acid stone formation. Source: [employer]. Last revised 05-04-2017 us Rosa MCKEON LAB MICROBIOLOGY - GENERAL ORDE RABLES Final Result Performing Organization Address [facility]/ZIP Co de Phone Number MARY JANE [address] [facility] Department [place] [address] * eGFR (08/01/2021 12:40 PM CDT) [facility] eGFR 96 mL/min/1. 73 m2 MARY [...] was last reviewed 2021. Testing performed by: [facility], [address] [place] [address]., [address] Blood 08/01/2021 12:4 0 PM CDT 08/01/2021 12:42 PM CDT Rosa MCKEON LAB BLOOD ORDERABLES Final Resu lt Performing Organization Address City/[facility]/ZIP Co de Phone Number MARY JANE [address] [facility] Department [place] [address] * (ABNORMAL) Differential, auto (08/01/2021 12:40 PM CDT) Neutrophil abs 9.2(H) 1.7 - 6.5 K/cumm MARY JANE Comment:Testing performed by : [address] [address] Imm gran abs 0.0 0.0 - 0.1 K/cumm MARY JANE Comment:Testing performed by : [address] [address] Lymphocyte abs 2.7 0.8 - 3.3 K/cumm MARY JANE Comment:Testing performed by : [address] [address] Monocyte abs 1.0(H) 0.2 - 0.8 K/cumm MARY JANE Comment:Testing performed by : [address] [address] Eosinophil abs 0.3 0.0 - 0.5 K/cumm MARY JANE Comment:Testing performed by : [address] [address] Basophil abs 0.0 0.0 - 0.1 K/cumm [facility] Comment:Testing performed by : [address] [address] Neutrophil pct 69.5 % [facility] Comment: Interpretive Data Percent cell count reference ranges are not reported, since discordance with absolute values may lead to misinterpretation of CBC data. Current Interpretive Data was last revised on 2017. Testing performed by: [address] [address] Imm gran pct 0.3 % [facility] Comment: Interpretive Data Percent cell count reference ranges are not reported, since discordance with absolute values may lead to misinterpretation of CBC data. Current Interpretive Data was last revised on 2017. Testing performed by: [address] [address] Lymphocyte pct 20.0 % [facility] Comment: Interpretive Data Percent cell count reference ranges are not reported, since discordance with absolute values may lead to misinterpretation of CBC data. Current Interpretive Data was last revised on 2017. Testing performed by: [address] [address] Monocyte pct 7.8 % MARY JANE Comment: Interpretive Data Percent cell count reference ranges are not reported, since discordance with absolute values may lead to misinterpretation of CBC data. Current Interpretive Data was last revised on 2017. Testing performed by: [address] [address] Eosinophil pct 2.1 % MARY JANE Comment: Interpretive Data Percent cell count reference ranges are not reported, since discordance with absolute values may lead to misinterpretation of CBC data. Current Interpretive Data was last revised on 2017. Testing performed by: [address] [address] Basophil pct 0.3 % MARY JANE Comment: Interpretive Data Percent cell count reference ranges are not reported, since discordance with absolute values may lead to misinterpretation of CBC data. Current Interpretive Data was last revised on 2017. Testing performed by: [address] [address] Blood 08/01/2021 12:4 0 PM CDT 08/01/2021 12:42 PM CDT Rosa Cruz PA LAB BLOOD ORDERABLES Final Resu lt Performing Organization Address City/[facility]/ZIP Co de Phone Number [place] [id number] [facility] [place] [address] * Lipase (08/01/2021 12:40 PM CDT) Lipase 18 10 - 99 Units/L MARY JANE Comment:Testing performed by : [address] [address] Blood 08/01/2021 12:4 0 PM CDT 08/01/2021 12:42 PM CDT Rosa Swayzee PA LAB BLOOD ORDERABLES Final Resu lt [place] [id number] Department [place] [address] * (ABNORMAL) Comprehensive metabolic panel (08/01/2021 12:40 PM CDT) [facility] Sodium 137 135 - 145 mmol/L MARY JANE Comment:Testing performed by : [address], [place]., [address] Potassium, pl 4.8 3.3 - 4.9 mmol/L MARY JANE Comment:Testing performed by : [address], [place]., [address] Chloride 99 97 - 110 mmol/L MARY JANE Comment:Testing performed by : [address], [place]., [address] CO2 30 22 - 32 mmol/L MARY JANE Comment:Testing performed by : [address], [place]., [address] Anion gap 8 2 - 15 mmol/L MARY JANE Comment:Testing performed by : [address] [address] BUN 18 8 - 25 mg/dL MARY JANE Comment:Testing performed by : [address], [place]., [address] Creatinine 0.70 0.60 - 1.10 mg/dL MARY JANE Comment:Testing performed by : [address], [place]., [address] Glucose 224(H) 70 - 199 mg/dL MARY JANE Comment: [...] was last revised 2017. Testing performed by: [address], [place]., [address] Calcium 10.4(H) 8.5 - 10.3 mg/dL MARY JANE PHAM Comment:Testing performed by : [address] [address] Bilirubin, total 0.6 0.1 - 1.2 mg/dL MARY JANE PHAM Comment:Testing performed by : [address] [address] Protein, pl 8.8(H) 6.5 - 8.5 g/dL MARY JANE PHAM Comment:Testing performed by : [address] [address] Albumin 4.1 3.5 - 5.0 g/dL MARY JANE PHAM Comment:Testing performed by : [address] [address] Alk phos 91 40 - 130 Units/L MARY JANE PHAM Comment:Testing performed by : [address] [address] ALT 21 7 - 45 Units/L MARY JANE Comment:Testing performed by : [address] [address] AST 24 10 - 45 Units/L MARY JANE Comment: HEMOLYZED: Hemolysis interferes with the above test. Testing performed by: [address] [address] Blood 08/01/2021 12:4 0 PM CDT 08/01/2021 12:42 PM CDT us Rosa MCKEON LAB BLOOD ORDERABLES Final Resu lt MARY JANE [address] [facility] Department [place] [address] * (ABNORMAL) CBC with auto differential (08/01/2021 12:40 PM CDT) Pathologist [facility] WBC 13.3(H) 3.8 - 9.9 K/cumm MARY JANE PHAM Comment:Testing performed by : [address] [address] Hgb 13.9 11.9 - 15.5 g/dL MARY JANE PHAM Comment:Testing performed by : [address] [address] Hct 44.3 35.6 - 45.5 % MARY JANE Comment:Testing performed by : [address], [address] Plt 297 150 - 400 K/cumm MARY JANE Comment:Testing performed by : [address] [address] MPV 9.0(L) 9.1 - 12.3 fL MARY JANE Comment:Testing performed by : [address], [address] RBC 4.82 3.90 - 5.20 M/cumm MARY JANE Comment:Testing performed by : [address], [address] MCV 91.9 81.3 - 96.4 fL MARY JANE Comment:Testing performed by : [address], [address] MCH 28.8 27.1 - 33.3 pg MARY JANE Comment:Testing performed by : [address], [address] MCHC 31.4(L) 32.3 - 35.7 g/dL MARY JANE Comment:Testing performed by : [address], [address] RDW CV 14.1 11.1 - 14.9 % MARY JANE Comment:Testing performed by : [address], [address] RDW SD 47.6 35.7 - 48.1 fL MARY JANE Comment:Testing performed by : [address], [address] NRBC abs 0.00 0.00 - 0.01 K/cumm MARY JANE Comment:Testing performed by : [address], [address] Blood 08/01/2021 12:4 0 PM CDT 08/01/2021 12:42 PM CDT us Rosa MCKEON LAB BLOOD ORDERABLES Final Resu lt MARY JANE PHAM [address] [facility] Department [place] [id number] documented in this encounter Visit Diagnoses Diagnosis 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)- Primary 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) Intractable pain Intractable pain documented in this encounter Admitting Diagnoses Diagnosis 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) Intractable pain documented in this encounter Administered Medications Inactive Administered Medications - up to 3 most recent administrations Medication Order MAR Action Action Date Dose Rate Site amitriptyline (ELAVIL) tablet 25 mg 25 mg, oral, Nightly, First dose on 08/01/21 at 2100 Given 08/03/2021 9:40 PM CDT 25 mg Given 08/02/2021 9:59 PM CDT 25 mg Given 08/01/2021 9:39 PM CDT 25 mg dextrose (D10W) 10% bolus 250 mL 250 mL, intravenous, at 1,000 mL/hr, Administer over 15 Minutes, Every 15 min PRN, blood glucose less than 70 mg/dL and UNABLE to swallow/take PO glucose/juice., Starting on 08/01/21 at 1742, After treatment for hypoglycemia, recheck BG followed [...] glucose less than 70 mg/dL, Starting on 08/01/21 at 1742, If patient is alert and able to [...] Call MD for each episode of hypoglycemia. CHUTE MAN STATES GLUTOSE-15 CONTAINS GLUCOSE 40% W/W (50% W/V), Indications: hypoglycemic disorderIndications:hypoglycemic disorder diphenhydrAMINE (BENADRYL) injection 50 mg 50 mg, intravenous, Administer over 2 Minutes, Once, On Mon08/02/21 at 2345, For 1 dose Given 08/02/2021 11:28 PM CDT 50 mg ertapenem (INVanz) 1,000 mg in sodium chloride 0.9% 100 mL IVPB 1,000 mg, intravenous, at 200 mL/hr, Administer over 30 Minutes, Nightly, First dose on Mon08/01/21 at 2100, Do not mix with dextrose or other medications. Mini-bag Plus, Indications: Urinary Tract/Genitourinary Infection, On hold since Mon08/02/2021 at 2310 until manually unheldIndications:Urinary Tract/Genitourinary Infection New Bag 08/02/2021 9:57 PM CDT 1,000 mg 2 00 mL/hr New Bag 08/01/2021 9:39 PM CDT 1,000 mg 200 mL/hr famotidine (PEPCID) injection 40 mg 40 mg, intravenous, Administer over 2 Minutes, Once, On Mon08/02/21 at 2345, For 1 dose Given 08/02/2021 11:27 PM CDT 40 mg HYDROcodone-acetaminophen (NORCO) 5-325 mg per tablet 1 tablet 1 tablet, oral, Every 4 hours PRN, 2nd line for pain, Starting on Mon08/01/21 at 1742, Indications: PainIndications:Pain Given 08/02/2021 1:27 PM CDT 1 ta blet Given 08/02/2021 12:49 AM CDT 1 tablet HYDROcodone-acetaminophen (NORCO) 5-325 mg per tablet 2 tablet 2 tablet, oral, Every 4 hours PRN, 2nd line for pain, Starting on Mon08/02/21 at 1614, Indications: PainIndications:Pain Given 08/04/2021 1:55 AM CDT 2 ta blets Given 08/03/2021 9:40 PM CDT 2 tablets Given 08/03/2021 6:17 AM CDT 2 tablets HYDROmorphone (DILAUDID) injection 0.2 mg 0.2 mg, intravenous, Administer over 2 Minutes, Every 2 hours PRN, 3rd line for pain, Starting on Mon08/01/21 at 1835 Given 08/04/2021 6:10 AM CDT 0.2 mg Given 08/03/2021 5:04 PM CDT 0.2 mg Given 08/02/2021 8:12 AM CDT 0.2 mg HYDROmorphone (DILAUDID) injection 0.5 mg 0.5 mg, intravenous, Administer over 2 Minutes, Once, On Mon08/01/21 at 1336, For 1 dose Given 08/01/2021 1:42 PM CDT 0.5 mg HYDROmorphone (DILAUDID) injection 0.5 mg 0.5 mg, intravenous, Administer over 2 Minutes, Once, On Mon08/01/21 at 1542, For 1 dose Given 08/01/2021 3:45 PM CDT 0.5 mg insulin glargine (LANTUS, SEMGLEE) 100 unit/mL injection 32 Units 32 Units (rounded from 31.85 Units = 0.25 Units/kg ? 127.4 kg), subcutaneous, Nightly, First dose on Mon08/01/21 at 2100, Do not hold if NPO. Do not mix with other insulins, Indications: Diabetes MellitusIndications:Diabetes Mellitus Given 08/02/2021 9:59 PM CDT 32 Units Left Lower Abdomen Given 08/01/2021 9:40 PM CDT 32 Units Le ft Upper Arm insulin glargine (LANTUS, SEMGLEE) 100 unit/mL injection 35 Units 35 Units, subcutaneous, Nightly, First dose (after last modification) on Mon08/03/21 at 2100, Do not hold if NPO. Do not mix with other insulins, Indications: Diabetes MellitusIndications:Diabetes Mellitus Given 08/03/2021 9:41 PM CDT 35 Units Left Lower Abdomen insulin lispro (HumaLOG, ADMELOG) 100 unit/mL injection 0-10 Units 0-10 Units, subcutaneous, 3 times daily with meals, First dose on Mon08/01/21 at 1815, Blood glucose mg/dL: 149 or less: No [...] NPO Status, Indications: Diabetes MellitusIndications:Diabetes Mellitus Given 08/04/2021 10:07 AM CDT 2 Units Left Upper Arm Given 08/03/2021 4:59 PM CDT 2 Units Le ft Lower Abdomen Given 08/03/2021 2:30 PM CDT 3 Units Le ft Upper Arm insulin lispro (HumaLOG, ADMELOG) 100 unit/mL injection 0-5 Units 0-5 Units, subcutaneous, Nightly, First dose on 08/01/21 at 2100, Blood glucose mg/dL: 149 or less: No [...] NPO Status, Indications: Diabetes MellitusIndications:Diabetes Mellitus Given 08/03/2021 9:41 PM CDT 4 Units Left Lower Abdomen Given 08/02/2021 9:58 PM CDT 2 Units Le ft Lower Abdomen insulin lispro (HumaLOG, ADMELOG) 100 unit/mL injection 11 Units 11 Units (rounded from 10.5742 Units = 0.083 Units/kg ? 127.4 kg), subcutaneous, 3 times daily with meals, First dose on 08/01/21 at 1815, If BG greater than or equal to [...] 70 mg/dL., Indications: Diabetes MellitusIndications:Diabetes Mellitus Given 08/04/2021 10:07 AM CDT 11 Units Left Upper Arm Given 08/03/2021 4:59 PM CDT 11 Units Le ft Lower Abdomen Given 08/03/2021 2:29 PM CDT 11 Units Le ft Upper Arm ioversoL (OPTIRAY 350) syringe syringe 100 mL 100 mL, intravenous, Once in imaging, contrast, Starting on 08/01/21 at 1357, For 1 dose Contrast Given 08/01/2021 1:58 PM CDT 100 mL Right Antecubital methylPREDNISolone sodium succinate (SOLU-medrol) preservative free injection 40 mg 40 mg, intravenous, Administer over 3 Minutes, Once, On Mon08/03/21 at 1215, For 1 dose, Administer 125 mg or less over 3 minutes Given 08/03/2021 2:39 PM CDT 40 mg methylPREDNISolone sodium succinate (SOLU-medrol) preservative free injection 60 mg 60 mg, intravenous, Administer over 3 Minutes, Once, On Mon08/02/21 at 2345, For 1 dose, Indications: bronchitisIndications:bron chitis Given 08/02/2021 11:27 PM CDT 60 mg morphine injection 2 mg 2 mg, intravenous, Administer over 4 Minutes, Once, On Mon08/01/21 at 1258, For 1 dose, Indications: PainIndications:Pain Given 08/01/2021 1:06 PM CDT 2 mg Right Antecubital nitrofurantoin monohydrate (MACROBID) capsule 100 mg 100 mg, oral, 2 times daily, First dose on Mon08/03/21 at 1115, Take with food, Indications: Urinary Tract/Genitourinary InfectionIndications:Urina ry Tract/Genitourinary Infection Given 08/04/2021 9:48 AM CDT 100 mg Given 08/03/2021 9:39 PM CDT 100 mg Given 08/03/2021 2:41 PM CDT 100 mg ondansetron (ZOFRAN) injection 4 mg 4 mg, intravenous, Administer over 2 Minutes, Once, On Mon08/01/21 at 1235, For 1 dose Given 08/01/2021 1:09 PM CDT 4 m g oxybutynin (DITROPAN) tablet 5 mg 5 mg, oral, 2 times daily, First dose on Mon08/01/21 at 2100 Given 08/04/2021 9:48 AM CDT 5 mg Given 08/03/2021 9:40 PM CDT 5 mg Given 08/03/2021 10:01 AM CDT 5 mg prochlorperazine (COMPAZINE) injection 5 mg 5 mg, intravenous, Every 6 hours PRN, nausea, vomiting, Use if unable to tolerate PO, Starting on Mon08/01/21 at 1742, Indications: Nausea and VomitingIndications:Nausea and Vomiting Given 08/01/2021 11:00 PM CDT 5 mg prochlorperazine (COMPAZINE) tablet 5 mg 5 mg, oral, Every 6 hours PRN, nausea, vomiting, Starting on 08/01/21 at 1742, Indications: Nausea and VomitingIndications:Nausea and Vomiting rivaroxaban (XARELTO) tablet 20 mg 20 mg, oral, Nightly, First dose on 08/01/21 at 2100, Nurse to discontinue heparin infusion order and associated bolus at first administration of rivaroxaban using 'order condition met' order source. If patient is eating, administer doses of 15 mg or greater with food. If patient is not eating, still administer dose unless instructed differently by provider., Indications: Venous ThrombosisIndications:Venous Thrombosis Given 08/03/2021 9:40 PM CDT 20 m g Given 08/02/2021 9:59 PM CDT 20 mg Given 08/01/2021 9:39 PM CDT 20 mg rOPINIRole (REQUIP) tablet 5 mg 5 mg, oral, Nightly, First dose on 08/01/21 at 2100, Patient Specific Bin Given 08/03/2021 9:39 PM CDT 5 mg Given 08/02/2021 10:00 PM CDT 5 mg Given 08/01/2021 9:39 PM CDT 5 mg sodium chloride 0.9% bolus 1,000 mL 1,000 mL, intravenous, Once, On 08/01/21 at 1235, For 1 dose New Bag 08/01/2021 1:05 PM CDT 1,000 mL Right Antecubital sulfamethoxazole-tri methoprim (BACTRIM DS) 800-160 mg per tablet 320 mg of trimethoprim 320 mg of trimethoprim, oral, Once, On 08/01/21 at 1349, For 1 dose, Indications: Urinary Tract/Genitourinary InfectionIndications :Urinary Tract/Genitourinary Infection Given 08/01/2021 2:18 PM CDT 320 mg of trimethoprim documented in this encounter Discontinued Medications Medication Sig Discontinue Reason Start Date End Da te amoxicillin (AMOXIL) 875 mg tablet Take 875 mg by mouth every 8 (eight) hours Stop Taking at Discharge 02/02/2021 08/04/2021 azithromycin (ZITHROMAX) 250 mg tablet azithromycin 250 mg tablet Stop Taking at Discharge 08/04/2021 levoFLOXacin (LEVAQUIN) 250 mg tablet levofloxacin 250 mg tablet Stop Taking at Discharge 08/04/2021 methylPREDNISolone (MEDROL DOSEPACK) 4 mg Dosepack FOLLOW PACKAGE DIRECTIONS Stop Taking at Discharge 03/14/2021 08/04/2021 metoclopramide (REGLAN) 10 mg tablet metoclopramide 10 mg tablet Stop Taking at Discharge 08/04/2021 metroNIDAZOLE (FLAGYL) 500 mg tablet metronidazole 500 mg tablet Stop Taking at Discharge 08/04/2021 nitrofurantoin monohydrate (MACROBID) 100 mg capsule nitrofurantoin monohydrate/macrocrysta ls 100 mg capsule Stop Taking at Discharge 08/04/2021 sulfamethoxazole-tri methoprim (BACTRIM DS) 800-160 mg per tablet Take 1 tablet by mouth every 12 (twelve) hours Stop Taking at Discharge 03/10/2021 08/04/2021 documented as of this encounter Historical Medications * This list may reflect changes made after this encounter. BD Ultra-Fine Short Pen Needle 31 gauge x 5/16 needle USE 6 TIMES DAILY DIRECTED 2 naloxone (NARCAN) 4 mg/actuation spray,non-aerosol 2 albuterol HFA (PROVENTIL HFA,VENTOLIN HFA,PROAIR HFA) 90 mcg/actuation inhaler Inhale 2 puffs every 6 (six) hours as needed for wheezing or shortness of breath 1 blood glucose diagnostic (OneTouch Ultra Test) strip 4 (four) times a day 02 1 sulfamethoxazole-t rimethoprim (BACTRIM DS) 800-160 mg per tablet Take 1 tablet by mouth every 12 (twelve) hours 08/05/19 22 sucralfate (CARAFATE) 1 gram tablet Take 1 g by mouth 4 (four) times a day 09/13/19 22 selenium sulfide 2.5 % lotion selenium sulfide 2.5 % shampoo APPLY TO THE AFFECTED AREAS BY TOPICAL ROUTE TWICE WEEKLY LATHER LEAVE ON 10 MINUTES AND RINSE OFF 09/13/19 22 prochlorperazine (COMPAZINE) 10 mg tablet prochlorperazine maleate 10 mg tablet [address] (PROTONIX) 40 mg EC tablet pantoprazole 40 mg tablet,delayed release 09/13/19 22 ondansetron ODT (ZOFRAN-ODT) 4 mg disintegrating tablet 2 08/17/19 22 nitrofurantoin monohydrate (MACROBID) 100 mg capsule nitrofurantoin monohydrate/macrocry stals 100 mg capsule 0 22 mupirocin (BACTROBAN) 2 % ointment mupirocin 2 % topical ointment 01/27/20 23 morphine (MSIR) 15 mg tablet morphine 15 mg immediate release tablet 09/13/19 22 mirabegron ER (MYRBETRIQ) 25 mg tablet extended release 24 hr Take 25 mg by mouth daily 09/13/19 metroNIDAZOLE (FLAGYL) 500 mg tablet metronidazole 500 mg tablet 08/05/19 metoprolol tartrate (LOPRESSOR) 25 mg immediate release tablet metoprolol tartrate 25 mg tablet 09/13/19 metoclopramide (REGLAN) 10 mg tablet metoclopramide 10 mg tablet 08/05/19 22 methylPREDNISolone (MEDROL DOSEPACK) 4 mg Dosepack FOLLOW PACKAGE DIRECTIONS 08/05/19 levoFLOXacin (LEVAQUIN) 250 mg tablet levofloxacin 250 mg tablet 08/05/19 ibuprofen (ADVIL,MOTRIN) 600 mg tablet ibuprofen 600 mg tablet TK 1 T PO Q 6 H PRN 09/13/19 hydrOXYzine (ATARAX) 25 mg tablet hydroxyzine HCl 25 mg tablet 09/13/19 22 gabapentin (NEURONTIN) 300 mg capsule gabapentin 300 mg capsule 09/13/19 22 famotidine (PEPCID) 20 mg tablet Take 20 mg by mouth 2 (two) times a day 09/13/[address] (CYMBALTA) 20 mg capsule Cymbalta 20 mg capsule,delayed release 09/13/19 dextromethorphan (DELSYM) syrup 30 mg/5 mL Take 30 mg by mouth every 12 (twelve) hours as needed 09/13/19 dapagliflozin (FARXIGA) 5 mg tablet daily 09/13/19 22 dexAMETHasone (DECADRON) 4 mg tablet dexamethasone 4 mg tablet TAKE TWO TABLETS PO IN THE MORNING DAY AFTER CHEMO WHICH IS DAY 2 TAKE TWO TABLETS IN MORNING AND TWO TABLETS AT NIGHT ON DAY 3 AND 4 0 22 clotrimazole-betam ethasone (LOTRISONE) cream clotrimazole-betamet hasone 1 %-0.05 % topical cream APPLY TOPICALLY TO AFFECTED AND SURROUNDING AREAS BID IN THE MORNING AND EVENING X 2 WEEKS 09/13/19 baclofen (LIORESAL) 10 mg tablet baclofen 10 mg tablet 09/13/19 azithromycin (ZITHROMAX) 250 mg tablet azithromycin 250 mg tablet 08/05/19 aspirin 325 mg tablet Take 325 mg by mouth daily 09/13/19 anastrozole (ARIMIDEX) 1 mg tablet anastrozole 1 mg tablet 08/17/19 amoxicillin (AMOXIL) 875 mg tablet Take 875 mg by mouth every 8 (eight) hours 08/05/19 acetaminophen-code ine (TYLENOL with CODEINE #3) 300-30 mg per tablet acetaminophen 300 mg-codeine 30 mg tablet 09/13/19 added in this encounter Active and Recently Administered Medications Times are shown in CDT. Scheduled Medication Order 08/02/2021 08/03/2021 08/04/2021 amitriptyline (ELAVIL) tablet 25 mg 25 mg, oral, Nightly, First dose on 08/01/21 at 2100 2159 (Given - Provider: Flower Villa RN) 2140 (Given - Provider: Flower Villa RN) diphenhydrAMINE (BENADRYL) injection 50 mg (COMPLETED) 50 mg, intravenous, Administer over 2 Minutes, Once, On 08/02/21 at 2345, For 1 dose 2328 (Given - Provider: Flower Vilal, NURIS) ertapenem (INVanz) 1,000 mg in sodium chloride 0.9% 100 mL IVPB (CANCELED) 1,000 mg, intravenous, at 200 mL/hr, Administer over 30 Minutes, Nightly, First dose on 08/01/21 at 2100, Do not mix with dextrose or other medications. Mini-bag Plus, Indications: Urinary Tract/Genitourinary Infection, On hold since Mon08/02/2021 at 2310 until manually unheld 2156 (New Bag - Provider: Flower Villa RN)231 (Held by Provider - Provider: Nohemi Garcia MD - Reason: Change in Patient Status - Comment: Possible allergic reaction) 112 (Unheld by Provider - Provider: Jazmine Raymond [facility]) exemestane (AROMASIN) tablet 25 mg *REQUEST PATIENT SUPPLY* 25 mg, oral, Nightly, First dose on Mon08/01/21 at 2100, Please obtain patient's home supply and place in the return to pharmacy bin for verification for inpatient use. 2158 (Not Given - Provider: Flower Villa RN - Reason: Medication not available) 2140 (Not Given - Provider: Flower Villa RN - Reason: Medication not available) famotidine (PEPCID) injection 40 mg (COMPLETED) 40 mg, intravenous, Administer over 2 Minutes, Once, On Mon08/02/21 at 2345, For 1 dose 2326 (Given - Provider: Flower Villa RN) insulin glargine (LANTUS, SEMGLEE) 100 unit/mL injection 32 Units (CANCELED) 32 Units (rounded from 31.85 Units = 0.25 Units/kg ? 127.4 kg), subcutaneous, Nightly, First dose on Mon08/01/21 at 2100, Do not hold if NPO. Do not mix with other insulins, Indications: Diabetes Mellitus 2158 (Given - Provider: Flower Villa RN) insulin glargine (LANTUS, SEMGLEE) 100 unit/mL injection 35 Units 35 Units, subcutaneous, Nightly, First dose (after last modification) on Mon08/03/21 at 2100, Do not hold if NPO. Do not mix with other insulins, Indications: Diabetes Mellitus 2140 (Given - Provider: Flower Villa RN) insulin lispro (HumaLOG, ADMELOG) 100 unit/mL injection 0-10 Units 0-10 Units, subcutaneous, 3 times daily with meals, First dose on Mon08/01/21 at 1815, Blood glucose mg/dL: 149 or less: No insulin 150-199: add 2 unit 200-249: add 4 units 250-299: add 6 units 300-349: add 8 units and notify physician for adjustment of insulin orders. 350-399: add 10 units and notify physician for adjustment of insulin orders. Over 400: Notify physician for adjustment of insulin orders. Do NOT hold for NPO Status, Indications: Diabetes Mellitus 1010 (Not Given - Provider: Ricarda Albert RN - Reason: Order parameters not met)1315 (Not Given - Provider: Ricarda Albert RN - Reason: Order parameters not met)1729 (Given - Provider: Ricarda Albert RN) 0959 (Given - Provider: Marily Pryor, RN)1430 (Given - Provider: Marily Pryor, RN)1659 (Given - Provider: Marily Pryor, RN) 1007 (Given - Provider: Ricarda Albert RN) insulin lispro (HumaLOG, ADMELOG) 100 unit/mL injection 0-5 Units 0-5 Units, subcutaneous, Nightly, First dose on 08/01/21 at 2100, Blood glucose mg/dL: 149 or less: No insulin 150-199: add 1 unit 200-249: add 2 units 250-299: add 3 units 300-349: add 4 units and notify physician for adjustment of insulin orders. 350-399: add 5 units and notify physician for adjustment of insulin orders. Over 400: Notify physician for adjustment of insulin orders. Do NOT hold for NPO Status, Indications: Diabetes Mellitus 2158 (Given - Provider: Flower Villa, NURIS) 2141 (Given - Provider: Flower Villa RN) insulin lispro (HumaLOG, ADMELOG) 100 unit/mL injection 11 Units 11 Units (rounded from 10.5742 Units = 0.083 Units/kg ? 127.4 kg), subcutaneous, 3 times daily with meals, First dose on 08/01/21 at 1815, If BG greater than or equal to [...] less than 70 mg/dL., Indications: Diabetes Mellitus 1010 (Given - Provider: Ricarda Albert, RN)1328 (Given - Provider: Ricarda Albert RN)1730 (Given - Provider: Ricarda Albert RN) 0958 (Given - Provider: Marily Pryor, RN)1429 (Given - Provider: Marily Pryor, RN)1659 (Given - Provider: Marily Pryor, RN) 1007 (Given - Provider: Ricarda Albert RN) methylPREDNISolone sodium succinate (SOLU-medrol) preservative free injection 40 mg (COMPLETED) 40 mg, intravenous, Administer over 3 Minutes, Once, On Mon08/03/21 at 1215, For 1 dose, Administer 125 mg or less over 3 minutes 1439 (Given - Provider: Marily Pryor RN) methylPREDNISolone sodium succinate (SOLU-medrol) preservative free injection 60 mg (COMPLETED) 60 mg, intravenous, Administer over 3 Minutes, Once, On Mon08/02/21 at 2345, For 1 dose, Indications: bronchitis 2327 (Given - Provider: Flower Villa RN) nitrofurantoin monohydrate (MACROBID) capsule 100 mg 100 mg, oral, 2 times daily, First dose on Mon08/03/21 at 1115, Take with food, Indications: Urinary Tract/Genitourinary Infection 1441 (Given - Provider: Marily Pryor, NURIS)2139 (Given - Provider: Flower Villa, NURIS) 0948 (Given - Provider: Ricarda Albert, NURIS) oxybutynin (DITROPAN) tablet 5 mg 5 mg, oral, 2 times daily, First dose on Mon08/01/21 at 2100 0812 (Given - Provider: Ricarda Albert, NURIS)2159 (Given - Provider: Flower Villa, RN) 1001 (Given - Provider: Marily Pryor, NURIS)2140 (Given - Provider: Flower Villa RN) 0948 (Given - Provider: Ricarda Albert RN) rivaroxaban (XARELTO) tablet 20 mg 20 mg, oral, Nightly, First dose on Mon08/01/21 at 2100, Nurse to discontinue heparin infusion order and associated bolus at first administration of rivaroxaban using 'order condition met' order source. If patient is eating, administer doses of 15 mg or greater with food. If patient is not eating, still administer dose unless instructed differently by provider., Indications: Venous Thrombosis 2158 (Given - Provider: Flower Villa, RN) 2139 (Given - Provider: Flower Villa, RN) rOPINIRole (REQUIP) tablet 5 mg 5 mg, oral, Nightly, First dose on 08/01/21 at 2100, Patient Specific Bin 2199 (Given - Provider: Flower Villa, NURIS) 2138 (Given - Provider: Flower Villa, RN) PRN Medication Order 08/02/2021 08/03/2021 08/04/2021 acetaminophen (TYLENOL) tablet 650 mg 650 mg, oral, Every 4 hours PRN, 1st line for pain, fever, fever greater than 38.3 C, Starting on 08/01/21 at 1742, Indications: Fever, Pain bisacodyL (DULCOLAX) suppository 10 mg 10 mg, rectal, Daily PRN, constipation, If no results 24 hours after polyethylene glycol (MIRALAX). May give bisacodyl tablet if tolerating PO., Starting on 08/01/21 at 1742, Indications: constipation bisacodyl EC (DULCOLAX EC) tablet 10 mg 10 mg, oral, Daily PRN, constipation, If no results 24 hours after polyethylene glycol (MIRALAX). May give bisacodyl supp if not tolerating PO), Starting on 08/01/21 at 1742, Do not crush, chew, cut, dissolve, open or otherwise manipulate tablet/capsule., Indications: constipation dextrose (D10W) 10% bolus 250 mL(Linked Group 1) 250 mL, intravenous, at 1,000 mL/hr, Administer over 15 Minutes, Every 15 min PRN, blood glucose less than 70 mg/dL and UNABLE to swallow/take PO glucose/juice., Starting on 08/01/21 at 1742, After treatment for hypoglycemia, recheck BG followed [...] glucose less than 70 mg/dL, Starting on 08/01/21 at 1742, If patient is alert and able to [...] Call MD for each episode of hypoglycemia. CHUTE MAN STATES GLUTOSE-15 CONTAINS GLUCOSE 40% W/W (50% W/V), Indications: hypoglycemic disorder glucagon injection 1 mg 1 mg, intramuscular, Every 30 min PRN, low blood sugar, blood glucose less than 70 mg/dL AND no IV access AND unable to take PO glucose/juice., Starting on 08/01/21 at 1742, After Glucagon is administered, position patient on [...] 1 mL SWFI. Use immediately following reconstitution. HYDROcodone-acetaminoph en (NORCO) 5-325 mg per tablet 1 tablet (CANCELED) 1 tablet, oral, Every 4 hours PRN, 2nd line for pain, Starting on 08/01/21 at 1742, Indications: Pain 0049 (Given - Provider: Fritz Cohen, UNRIS)1327 (Given - Provider: Ricarda Albert, NURIS) HYDROcodone-acetaminoph en (NORCO) 5-325 mg per tablet 2 tablet 2 tablet, oral, Every 4 hours PRN, 2nd line for pain, Starting on 08/02/21 at 1614, Indications: Pain 1851 (Given - Provider: Ricarda Albert, NURIS) 0617 (Given - Provider: Flower Villa RN)2140 (Given - Provider: Flower Villa, RN) 0155 (Given - Provider: Flower Villa, RN) HYDROmorphone (DILAUDID) injection 0.2 mg 0.2 mg, intravenous, Administer over 2 Minutes, Every 2 hours PRN, 3rd line for pain, Starting on 08/01/21 at 1835 0812 (Given - Provider: Ricarda Albert, RN) 1704 (Given - Provider: Marily Pryor, RN) 0610 (Given - Provider: Flower Villa, NURIS) polyethylene glycol (MIRALAX) packet 17 g 17 g, oral, Daily PRN, constipation, Starting on 08/01/21 at 1742, Indications: constipation prochlorperazine (COMPAZINE) injection 5 mg(Linked Group 2) 5 mg, intravenous, Every 6 hours PRN, nausea, vomiting, Use if unable to tolerate PO, Starting on 08/01/21 at 1742, Indications: Nausea and Vomiting prochlorperazine (COMPAZINE) tablet 5 mg(Linked Group 2) 5 mg, oral, Every 6 hours PRN, nausea, vomiting, Starting on 08/01/21 at 1742, Indications: Nausea and Vomiting ramelteon (ROZEREM) tablet 8 mg 8 mg, oral, Nightly PRN, sleep, Starting on 08/01/21 at 1742, Indications: Sleep-Onset Insomnia Linked Groups Order Group 1: dextrose (GLUTOSE) 40 % gel 15 gJump to med 15 g, oral, Every 15 min PRN, low blood sugar, blood glucose less than 70 mg/dL, Starting on 08/01/21 at 1742, If patient is alert and able to [...] Call MD for each episode of hypoglycemia. CHUTE MAN STATES GLUTOSE-15 CONTAINS GLUCOSE 40% W/W (50% W/V), Indications: hypoglycemic disorder Or dextrose (D10W) 10% bolus 250 mLJump to med 250 mL, intravenous, at 1,000 mL/hr, Administer over 15 Minutes, Every 15 min PRN, blood glucose less than 70 mg/dL and UNABLE to swallow/take PO glucose/juice., Starting on 08/01/21 at 1742, After treatment for hypoglycemia, recheck BG followed by treatment every 15 minutes until the BG is greater than 100 mg/dL. Then check BG 1 hour post treatment. If BG is less than 100 mg/dL, repeat Q15 minute BG checks and treatment. Call MD for each episode of hypoglycemia., Indications: hypoglycemic disorder Group 2: prochlorperazine (COMPAZINE) tablet 5 mgJump to med 5 mg, oral, Every 6 hours PRN, nausea, vomiting, Starting on 08/01/21 at 1742, Indications: Nausea and Vomiting Or prochlorperazine (COMPAZINE) injection 5 mgJump to med 5 mg, intravenous, Every 6 hours PRN, nausea, vomiting, Use if unable to tolerate PO, Starting on Mon08/01/21 at 1742, Indications: Nausea and Vomiting documented in this encounter Orders Medications Ordered That Tyler ht Not Have Been Administered Count Last Ordered Date First Ordered Date acetaminophen (TYLENOL) tablet 650 mg 1 01/2022 bisacodyL (DULCOLAX) suppository 10 mg 1 bisacodyl EC (DULCOLAX EC) tablet 10 mg 1 0 08/01/2021 dextrose (D10W) 10% bolus 250 mL 08/02/19 dextrose (GLUTOSE) 40 % gel 15 g 1 08/02/19 exemestane (AROMASIN) tablet 25 mg *REQUEST PATIENT SUPPLY* 08/01/2021 glucagon injection 1 mg 1 08/01/2021 polyethylene glycol (MIRALAX) packet 17 g 1 08/01/2021 prochlorperazine (COMPAZINE) tablet 5 mg 1 08/01/2021 ramelteon (ROZEREM) tablet 8 mg 1 2 Lab Orders Without Results Count Last Ordered D ate First Ordered Date POCT GLUCOSE DEVICE 8 08/04/2021 08/02/19 Diet Count Last Ordered Date First Orde red Date ADULT DISCHARGE DIET 1 08/04/2021 Nursing Count Last Ordered Date First Orde red Date DISCHARGE ACTIVITY 1 08/04/2021 DISCHARGE CALL PROVIDER 8 08/04/2021 DISCHARGE INSTRUCTIONS 1 08/04/2021 Admission Count Last Ordered Date First Orde red Date ADMIT TO INPATIENT 1 08/01/2021 Transfer Count Last Ordered Date First Orde red Date ED TO FLOOR BED REQUEST 1 08/01/2021 Discharge Count Last Ordered Date First Orde red Date DISCHARGE PATIENT 1 08/04/2021 CORE MEASURES Count Last Ordered Date First Ord ered Date REASON FOR NO VTE PROPHYLAXIS AT ADMISSION 1 08/01/2021 documented in this encounter Care Teams Academic Associate Relationship Specialty Start Date End Date Justen Gale MD 2 [facility] [address] [place] [address] PCP - General 10/09/17 Liu Jerez MD Consulting Physician Gastroenterology 07/28/17 [place] [address] [facility] [address] [place] [address] Consulting Physician Pulmonary Disease 08/03/17 [place] [address] [place] [address] [address] [place] [address] Medical Oncologist/Tour Driver Medical Oncology 10/23/17 [place] [address] [address] Surgeon Orthopedic Surgery 10/23/17 [place] [address] [facility] [address] [place] [address] Consulting Physician Pain Management 10/23/17 [place] [address] [address] Referring Physician General Surgery 01/26/18 [place] [address] [address] Consulting Physician Neurology 01/26/18 documented as of this encounter
--- OUTSIDE RECORDS SUMMARY | 2024-04-26 04:22 | XMS_ITS | Encounter Summary ---
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 Unavailable [phone] Reason for Referral * (Routine) - Closed Specialty Diagnoses / Procedures Referred By Contac t Referred To Contact Diagnoses Malignant neoplasm of upper-inner quadrant of left breast in female, estrogen receptor positive (HCC) Procedures Miscellaneous DME [facility] 7th [place] [address] [place] [address] Phone: tel: fax: Referral ID Status Reason Start Date Expiration Date Visits Re quested Visits Authorized [id number] Closed 11/10/2020 12/10/2021 1 1 * Diagnostic Imaging (Routine) - Closed Specialty Diagnoses / Procedures Referred By Elyssa t Referred To Contact Diagnoses Malignant neoplasm of upper-inner quadrant of left breast in female, estrogen receptor positive (HCC) Procedures NM bone scan whole body Khris Arthur MD [address] [facility] [address] [place] [address] Phone: tel: fax: [address] [phone] Referral ID Status Reason Start Date Expiration Date Visits Re quested Visits Authorized [id number] Closed 11/13/2020 12/28/2020 2 1 Reason for Visit * Oncology (Routine) - Closed Specialty Diagnoses / Procedures Referred By Elyssa benavides Referred To Contact Oncology Diagnoses Malignant neoplasm of overlapping sites of left female breast, unspecified estrogen receptor status (HCC) Justen Gale MD [address] [address] Phone: tel: fax: Khris Arthur MD Phone: tel: fax: Referral ID Status Reason Start Date Expiration Date V isits Requested Visits Authorized [id number] Closed Specialty Services Required 10/18/2019 04/23/2024 99 [phone] Encounter Details Date Type Department Care Team (Late st Contact Info) Description 11/10/2020 1:00 PM CDT Office Visit [facility] [address] [facility] [address] [place] [address] [place] [address] Khris Arthur MD [address] 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 Gender Identity Not on file Sexual Orientation Not on file documented as of this encounter Last Filed Vital Signs Vital Sign Reading Time Taken Comments Blood Pressure 143/86 11/10/2020 12:07 PM CDT Pulse 106 11/10/2020 12:07 PM CDT Temperature 36.8 ??C (98.2 ??F) 11/10/2020 12:07 PM C DT Respiratory Rate 16 11/10/2020 12:07 PM CDT Oxygen Saturation 95% 11/10/2020 12:07 PM CDT Inhaled Oxygen Concentration - - Weight 130.2 kg (287 lb) 11/10/2020 12:07 PM CDT Height - - Body Mass Index 54.23 10/02/2020 12:38 PM CDT documented in this encounter Progress Notes * Елена Loomis NP - 11/10/2020 1:00 PM CDT Oncology Progress Note REASON FOR VISIT: Stage II, ER positive, HER2 negative breast [...] showed a 2 mm group of indistinct taylor rocalcifications in the upper central right breast 10 [...] in the left carcinoma were ER 8, DC 8, HER-2 negative. 3. Cytology on 07/21/2014 [...] overlapping sites of left female breast (CMS/HCC) 10/13/2017 Initial Diagnosis Cancer of overlapping sites of left female breast (CMS/HCC) Subjective Interval History Karly Marques returns today for routine oncologic care, she has not been seen in 2 years due toconcerns for the pandemic. She reports compliance with her exemestane and denies related side effects. She has been having a great deal of trouble with her GI tract, even being admitted to the hospital at one point. She states she has this under better control and is continues to improve, mainly wit h diet changes. As she has made significant changes to her diet, she reports she has lost 15 lbs over the last month and is quite pleased with this result. She continues to have chronic lower back pain and is working with pain management to control this with steroid injections. She had a DEXA scan today. She has been having some left sided chest puffiness for the last few months and tenderness in her left bicep and axially area. She has a new grandchild and been holding the baby, but this tenderness has resolved over the last week. She also reports some mild pain in the lower leg but it comes and goes. She has no other complaints. Review of Systems: A complete ROS was performed and positive for that noted in the above interval history. All other systems negative. Allergies Allergen Reactions ??? Ceftriaxone Anaphylaxis R [...] (See comments) Shaky, restlessness, itching, throat swelling Outpatient Encounter Medications as of 11/10/2020: ??? amitriptyline (ELAVIL) 25 mg tablet, , Disp: , Rfl: ??? exemestane (AROMASIN) 25 mg tablet, TAKE 1 TABLET(25 MG) BY MOUTH DAILY AFTER A MEAL, Disp: 90 tablet, Rfl: 0 ??? HYDROcodone-acetaminophen (NORCO) 5-325 mg per tablet, Take by mouth., Disp: , Rfl: ??? insulin glargine (LANTUS) 100 unit/mL injection, Inject 40 Units under the skin daily. Takes inthe morning, Disp: , Rfl: ??? insulin lispro (HumaLOG) 100 unit/mL injection, Inject 12 Units under the skin 3 (three) times a day before meals., Disp: , Rfl: ??? lisinopril (PRINIVIL,ZESTRIL) 20 mg tablet, Take 20 mg by mouth., Disp: , Rfl: ??? oxybutynin (DITROPAN) 5 mg tablet, take 1 tablet by oral route every day, Disp: 0, Rfl: 0 ??? rivaroxaban (Xarelto) 20 mg tablet, Take 1 tablet (20 mg total) by mouth daily, Disp: 30 tablet, Rfl: 1 ??? rOPINIRole (REQUIP) 5 mg tablet, Take 5 mg by mouth., Disp: , Rfl: ??? clonazePAM (KlonoPIN) 1 mg tablet, Take 1 tablet (1 mg total) by mouth 2 (two) times a day for 10 days ., Disp: 20 tablet, Rfl: 0 ??? [DISCONTINUED] acetaminophen-codeine (TYLENOL with CODEINE #3) 300-30 mg per tablet, acetaminophen 300 mg-codeine 30 mg tablet (Patient not taking: Reported on 10/29/2020), Disp: , Rfl: ??? [DISCONTINUED] albuterol HFA (ProAir HFA) 90 mcg/actuation inhaler, ProAir HFA 90 mcg/actuationaerosol inhaler (Patient not taking: Reported on 10/29/2020), Disp: , Rfl: ??? [DISCONTINUED] ALPRAZolam (XANAX) 0.25 mg tablet, alprazolam 0.25 mg tablet (Patient not taking: Reported on 10/29/2020), Disp: , Rfl: ??? [DISCONTINUED] anastrozole (ARIMIDEX) 1 mg tablet, anastrozole 1 mg tablet (Patient not taking:Reported on 10/29/2020), Disp: , Rfl: ??? [DISCONTINUED] atorvastatin (LIPITOR) 10 mg tablet, Take 1 tablet (10 mg total) by mouth nightly. (Patient not taking: Reported on 08/07/2018), Disp: 30 tablet, Rfl: 0 ??? [DISCONTINUED] azithromycin (ZITHROMAX) 250 mg tablet, azithromycin 250 mg tablet (Patient not taking: Reported on 10/29/2020), Disp: , Rfl: ??? [DISCONTINUED] baclofen (LIORESAL) 10 mg tablet, baclofen 10 mg tablet (Patient not taking: Reported on 10/29/2020), Disp: , Rfl: ??? [DISCONTINUED] bismuth subsalicylate (Pepto-BismoL Max St) 525 mg/15 mL suspension, Take 30 mL by mouth every 6 (six) hours as needed (Patient not taking: Reported on 10/29/2020), Disp: , Rfl: ??? [DISCONTINUED] ciprofloxacin (CIPRO) 250 mg tablet, ciprofloxacin 250 mg tablet (Patient not taking: Reported on 10/29/2020), Disp: , Rfl: ??? [DISCONTINUED] clindamycin (CLEOCIN) 150 mg capsule, clindamycin HCl 150 mg capsule (Patient not taking: Reported on 10/29/2020), Disp: , Rfl: ??? [DISCONTINUED] clotrimazole-betamethasone (LOTRISONE) cream, clotrimazole- betamethasone 1 %-0.05 % topical cream APPLY TOPICALLY TO AFFECTED AND SURROUNDING AREAS BID IN THE MORNING AND EVENING X2 WEEKS (Patient not taking: Reported on 10/29/2020), Disp: , Rfl: ??? [DISCONTINUED] cyclobenzaprine (FLEXERIL) 5 mg tablet, cyclobenzaprine 5 mg tablet (Patient nottaking: Reported on 10/29/2020), Disp: , Rfl: ??? [DISCONTINUED] dapagliflozin (Farxiga) 5 mg tablet, daily (Patient not taking: Reported on 10/29/2020), Disp: , Rfl: ??? [DISCONTINUED] dexAMETHasone (DECADRON) 4 mg tablet, dexamethasone 4 mg tablet TAKE TWO TABLETSPO IN THE MORNING DAY AFTER CHEMO WHICH IS DAY 2 TAKE TWO TABLETS IN MORNING AND TWO TABLETS AT NIGHT ON DAY 3 AND 4 (Patient not taking: Reported on 10/29/2020), Disp: , Rfl: ??? [DISCONTINUED] diazePAM (VALIUM) 5 mg tablet, Take 1 tablet (5 mg total) by mouth every 8 (eight) hours as needed for anxiety. (Patient not taking: Reported on 08/07/2018), Disp: 10 tablet, Rfl: 0 ??? [DISCONTINUED] diclofenac DR (VOLTAREN) 75 mg EC tablet, Take 75 mg by mouth 2 (two) times a day as needed (Patient not taking: Reported on 10/29/2020), Disp: , Rfl: ??? [DISCONTINUED] dicyclomine (BENTYL) 20 mg tablet, dicyclomine 20 mg tablet (Patient not taking:Reported on 10/29/2020), Disp: , Rfl: ??? [DISCONTINUED] diphenhydrAMINE (diphenhydrAMINE) 25 mg capsule, Take 1 tablet/capsule (25 mg total) by mouth every 6 (six) hours as needed for itching . (Patient not taking: Reported on 08/07/2018), Disp: 20 capsule, Rfl: 0 ??? [DISCONTINUED] DULoxetine DR (Cymbalta) 20 mg capsule, Cymbalta 20 mg capsule,delayed release (Patient not taking: Reported on 10/29/2020), Disp: , Rfl: ??? [DISCONTINUED] exemestane (AROMASIN) 25 mg tablet, Take 1 tablet (25 mg total) by mouth daily After a meal, Disp: 90 tablet, Rfl: 0 ??? [DISCONTINUED] famotidine (PEPCID) 20 mg tablet, Take 20 mg by mouth 2 (two) times a day (Patient not taking: Reported on 10/29/2020), Disp: , Rfl: ??? [DISCONTINUED] fluticasone propionate (FLONASE) 50 mcg/actuation nasal spray, fluticasone propionate 50 mcg/actuation nasal spray,suspension INHALE 1 SPRAY BY INTRANASAL ROUTE QD FOR 7 DAYS (Patient not taking: Reported on 10/29/2020), Disp: , Rfl: ??? [DISCONTINUED] gabapentin (NEURONTIN) 300 mg capsule, Take 300 mg by mouth 3 times daily (Patient not taking: Reported on 10/29/2020), Disp: , Rfl: ??? [DISCONTINUED] glimepiride (AMARYL) 2 mg tablet, glimepiride 2 mg tablet (Patient not taking: Reported on 10/29/2020), Disp: , Rfl: ??? [DISCONTINUED] hydrOXYzine (ATARAX) 25 mg tablet, Take 1 tablet (25 mg total) by mouth 4 (four)times a day as needed for itching or anxiety (TONGUE SWELLING) Indications: anxious. (Patient not taking: Reported on 08/28/2018), Disp: 20 tablet, Rfl: 0 ??? [DISCONTINUED] ibuprofen (ADVIL,MOTRIN) 600 mg tablet, ibuprofen 600 mg tablet TK 1 T PO Q 6 H PRN (Patient not taking: Reported on 10/29/2020), Disp: , Rfl: ??? [DISCONTINUED] ipratropium-albuteroL (Combivent Respimat) 20-100 mcg/actuation inhaler, Combivent Respimat 20 mcg-100 mcg/actuation solution for inhalation (Patient not taking: Reported on 10/29/2020), Disp: , Rfl: ??? [DISCONTINUED] ketorolac (ketorolac) 30 mg/mL (1 mL) injection, 1 mL (Patient not taking: Reported on 10/29/2020), Disp: , Rfl: ??? [DISCONTINUED] lancets ([employer] LANCETS) 33 gauge misc, by Not Applicable route 4 timesdaily (Patient not taking: Reported on 10/29/2020), Disp: , Rfl: ??? [DISCONTINUED] levoFLOXacin (LEVAQUIN) 250 mg tablet, levofloxacin 250 mg tablet (Patient not taking: Reported on 10/29/2020), Disp: , Rfl: ??? [DISCONTINUED] lidocaine (LIDODERM) 5 %, PLACE 1 PATCH ONTO THE SKIN D FOR 30 DAYS. REMOVE AND DISCARD PATCH WITHIN 12 HOURS OR UTD BY MD (Patient not taking: Reported on 10/29/2020), Disp: , Rfl: 0 ??? [DISCONTINUED] LORazepam (ATIVAN) 0.5 mg tablet, lorazepam 0.5 mg tablet (Patient not taking: Reported on 10/29/2020), Disp: , Rfl: ??? [DISCONTINUED] metFORMIN XR (GLUCOPHAGE XR) 500 mg 24 hr tablet, metformin ER 500 mg tablet,extended release 24 hr TK 2 TS PO IN THE MORNING AND IN THE ARMAAN (Patient not taking: Reported on 10/29/2020), Disp: , Rfl: ??? [DISCONTINUED] methIMAzole (TAPAZOLE) 10 mg tablet, methimazole 10 mg tablet TK 1 T PO QD FOR 2WEEKS AND THEN T PO QD FOR 2 WEEKS (Patient not taking: Reported on 10/29/2020), Disp: , Rfl: ??? [DISCONTINUED] methylPREDNISolone acetate (DEPO-MedroL) 40 mg/mL injection, 1.5 mL (Patient nottaking: Reported on 10/29/2020), Disp: , Rfl: ??? [DISCONTINUED] metoclopramide (REGLAN) 10 mg tablet, metoclopramide 10 mg tablet (Patient not taking: Reported on 10/29/2020), Disp: , Rfl: ??? [DISCONTINUED] metoprolol tartrate (LOPRESSOR) 25 mg immediate release tablet, metoprolol tartrate 25 mg tablet TK T PO Q 12 HOURS (Patient not taking: Reported on 10/29/2020), Disp: , Rfl: ??? [DISCONTINUED] metroNIDAZOLE (FLAGYL) 500 mg tablet, metronidazole 500 mg tablet (Patient not taking: Reported on 10/29/2020), Disp: , Rfl: ??? [DISCONTINUED] mirabegron ER (MYRBETRIQ) 25 mg tablet extended release 24 hr, Take 25 mg by mouth (Patient not taking: Reported on 10/29/2020), Disp: , Rfl: ??? [DISCONTINUED] morphine (MSIR) 15 mg tablet, morphine 15 mg immediate release tablet (Patient not taking: Reported on 10/29/2020), Disp: , Rfl: ??? [DISCONTINUED] mupirocin (BACTROBAN) 2 % ointment, mupirocin 2 % topical ointment (Patient not taking: Reported on 10/29/2020), Disp: , Rfl: ??? [DISCONTINUED] naproxen (NAPROSYN) 500 mg tablet, naproxen 500 mg tablet TK 1 T PO Q 12 H PRN (Patient not taking: Reported on 10/29/2020), Disp: , Rfl: ??? [DISCONTINUED] nitrofurantoin (MACRODANTIN) 100 mg capsule, nitrofurantoin macrocrystal 100 mg capsule TK 1 C PO Q 6 H WITH MEALS FOR 7 DAYS (Patient not taking: Reported on 10/29/2020), Disp: , Rfl: ??? [DISCONTINUED] nitrofurantoin monohydrate (MACROBID) 100 mg capsule, Take 1 capsule (100 mg total) by mouth 2 (two) times a day. (Patient not taking: Reported on 08/07/2018), Disp: 10 capsule, Rfl: 0 ??? [DISCONTINUED] omeprazole (PriLOSEC) 40 mg capsule, Take 40 mg by mouth daily (Patient not taking: Reported on 10/29/2020), Disp: , Rfl: ??? [DISCONTINUED] ondansetron (ZOFRAN) 4 mg tablet, Take 1 tablet (4 mg total) by mouth every 6 (six) hours as needed for nausea or vomiting (Patient not taking: Reported on 10/29/2020), Disp: 30 tablet, Rfl: 0 ??? [DISCONTINUED] ondansetron ODT (ZOFRAN-ODT) 4 mg disintegrating tablet, Dissolve 1 tablet oral every 4 hours as needed for nausea or vomiting. (Patient not taking: Reported on 10/29/2020), Disp: 10tablet, Rfl: 0 ??? [DISCONTINUED] ONETOUCH ULTRA BLUE TEST STRIP strip, TEST QID (Patient not taking: Reported on 10/29/2020), Disp: , Rfl: 3 ??? [DISCONTINUED] oxyCODONE-acetaminophen (PERCOCET) 5-325 mg per tablet, Take 1 tablet by mouth every 6 (six) hours as needed for pain. (Patient not taking: Reported on 08/07/2018), Disp: 6 tablet, Rfl: 0 ??? [DISCONTINUED] pantoprazole DR (PROTONIX) 40 mg EC tablet, pantoprazole 40 mg tablet,delayed release (Patient not taking: Reported on 10/29/2020), Disp: , Rfl: ??? [DISCONTINUED] phenazopyridine (PYRIDIUM) 200 mg tablet, phenazopyridine 200 mg tablet TK 1 T PO TID PC FOR 2 DAYS (Patient not taking: Reported on 10/29/2020), Disp: , Rfl: ??? [DISCONTINUED] polyethylene glycol (MIRALAX) 17 gram/dose powder, Mix 1 scoop (17 g) in 8 oz ofwater and drink daily. (Patient not taking: Reported on 10/29/2020), Disp: 527 g, Rfl: 0 ??? [DISCONTINUED] predniSONE (DELTASONE) 20 mg tablet, prednisone 20 mg tablet TK 1 T PO QD FOR 5 DAYS (Patient not taking: Reported on 10/29/2020), Disp: , Rfl: ??? [DISCONTINUED] prochlorperazine (COMPAZINE) 10 mg tablet, prochlorperazine maleate 10 mg tablet(Patient not taking: Reported on 10/29/2020), Disp: , Rfl: ??? [DISCONTINUED] promethazine (PHENERGAN) 25 mg tablet, promethazine 25 mg tablet TK 1 T PO Q 6 HPRN (Patient not taking: Reported on 10/29/2020), Disp: , Rfl: ??? [DISCONTINUED] rivaroxaban (Xarelto) 20 mg tablet, Take 1 tablet (20 mg total) by mouth daily, Disp: 30 tablet, Rfl: 11 ??? [DISCONTINUED] rivaroxaban (Xarelto) 20 mg tablet, Take 1 tablet (20 mg total) by mouth daily, Disp: 30 tablet, Rfl: 0 ??? [DISCONTINUED] selenium sulfide 2.5 % lotion, selenium sulfide 2.5 % shampoo APPLY TO THE AFFECTED AREAS BY TOPICAL ROUTE TWICE WEEKLY LATHER LEAVE ON 10 MINUTES AND RINSE OFF (Patient not taking: Reported on 10/29/2020), Disp: , Rfl: ??? [DISCONTINUED] sitaGLIPtin-metformin (JANUMET) 50-1,000 mg per tablet, Take 1 tablet by mouth (Patient not taking: Reported on 10/29/2020), Disp: , Rfl: ??? [DISCONTINUED] sulfamethoxazole-trimethoprim (BACTRIM DS) 800-160 mg per tablet, sulfamethoxazole 800 mg-trimethoprim 160 mg tablet (Patient not taking: Reported on 10/29/2020), Disp: , Rfl: ??? [DISCONTINUED] tamoxifen (NOLVADEX) 20 mg tablet, tamoxifen 20 mg tablet (Patient not taking: Reported on 10/29/2020), Disp: , Rfl: ??? [DISCONTINUED] tamsulosin (FLOMAX) 0.4 mg extended release capsule, tamsulosin 0.4 mg capsule TK 1 C PO QAM (Patient not taking: Reported on 10/29/2020), Disp: , Rfl: ??? [DISCONTINUED] TiZANidine (ZANAFLEX) 2 mg capsule, Take 1 tablet by mouth (Patient not taking: Reported on 10/29/2020), Disp: , Rfl: ??? [DISCONTINUED] traMADoL (ULTRAM) 50 mg tablet, tramadol 50 mg tablet (Patient not taking: Reported on 10/29/2020), Disp: , Rfl: ??? [DISCONTINUED] TRUEPLUS PEN NEEDLE 31 gauge x 5/16 needle, , Disp: , Rfl: Past Medical History: Diagnosis Date ??? Adiposity obesity ??? Breast CA (CMS/HCC) ??? Cancer (CMS/HCC) breast ??? CHF (congestive heart failure) (CMS/HCC) ??? Depression Depression ??? Diabetes (CMS/HCC) ??? Disorder of thyroid Thyroid disease ??? DVT (deep venous thrombosis) (CMS/HCC) ??? HX OTHER MEDICAL restless leg syndrome ??? HX OTHER MEDICAL RLS ??? Hypertension Hypertension ??? Osteoarthritis osteoarthritis ??? PE (pulmonary thromboembolism) (CMS/HCC) ??? Sleep apnea Past Surgical History: Procedure [...] US SOFT TISSUE ABSCESS DRAIN N/A 10/24/2014 Objective Vitals: Most Recent : BP: 143/86 Temp: 36.8 ??C (98.2 ??F) Temp src: Temporal Pulse: 106 Resp: 16 SpO2: 95 % Weight: 130.2 kg (287 lb) Physical Exam: Performance Status: ECOG 1 General: She appears well, in no acute distress. HEENT: No mucositis or thrush. Pupils equal, round and reactive to light and accommodation. Extraocular movements are full. She is not pale. She is anicteric. Lymphatics: Lymph node survey is negative with no cervical, supraclavicular, infraclavicular, or axillary adenopathy. Cardiovascular: Heart sounds are normal with no murmur, rub, or gallop. Lungs: Clear to auscultation bilaterally. Abdomen: Soft, nontender, nondistended. No hepatosplenomegaly. Extremities: Left upper arm edema. Radial pulses 2+. Breasts: Shows surgically absent breasts. No signs of local recurrence. Radiation skin changes noted around sternum,edema around left sternal border. Lab/Radiology/Diagnostic Review: CBC: Hematology Lab History Some values may be hidden. Unless noted otherwise, only the newest values recorded on each date aredisplayed. Labs - Hematology Latest Ref Range 10/02/20 10/29/20 WBC 3.8 - 9.8 K/cumm 11.1 (A) 9.8 Total Hb, POC 12.1 - 15.1 g/dL 13.8 12.8 Hct 36.1 - 44.3 % 43.6 38.8 Plt 140 - 440 K/cumm 293 290 Neutrophil abs 1.8 - 6.6 K/cumm 7.1 (A) 6.3 Lymphocytes, abs 1.2 - 3.3 K/cumm 2.8 2.3 (A) Abnormal value Comments are available for some flowsheets but are not being displayed. CMP: Lab Results Component Value Date/Time SODIUM 133 (L) 11/10/2020 11:24 AM POTASSIUM 4.9 11/10/2020 11:24 AM CO2 26 11/10/2020 11:24 AM BUNSER 24 11/10/2020 11:24 AM GLUCOSE 270 (H) 11/10/2020 11:24 AM CREATININE 0.69 11/10/2020 11:24 AM CALCIUM 10.4 (H) 11/10/2020 11:24 AM CHLORIDE 100 11/10/2020 11:24 AM ALBUMIN 4.1 11/10/2020 11:24 AM AST 12 11/10/2020 11:24 AM ALT 15 11/10/2020 11:24 AM ALKPHOS 88 11/10/2020 11:24 AM BILITOT 0.4 11/10/2020 11:24 AM PROT 8.8 (H) 11/10/2020 11:24 AM ANIONGAP 7 11/10/2020 11:24 AM Radiology: DEXA 11/10/2020 LS 0.2(9.6% decrease)/FN-1.8, TH -1.3 (15.7% decrease) Assessment/Plan Karly Marques is a 65 y.o. female with stage II, ER positive, HER2 negative breast cancer on adjuvant exemestane. She will continue on exemestane, with plans to complete 10 years of therapy. She isexhibiting lymphedema in her left upper arm and this is likely leading to lymphedema around her sternum, will mail her a prescription for left lymphedema sleeve. We reviewed her DEXA scan and lab work. She has a history of elevated Calcium levels and her calcium is elevated today. We briefly discussed the possibility of giving her Zometa for her decreasing bone mass. After discussion with Dr. Arthur, we will plan for a nuclear medicine bone scan to rule out bone mets; if this is negative we will proceed with scheduling her for zometa infusion and plan to see her back in 6 months from the date of infusion for follow up and next infusion. Encouraged her to continue follow-up with her PCP and pain management. Karly Marques will follow up as directed above, she was encouraged to call in the interim with questions or concerns. We will continue to monitor and review for side effects from treatment. Елена Loomis, MSN, AGNP Nurse Practitioner, Medical Oncology documented in this encounter Plan of Treatment Not on file documented as of this encounter Results * NM bone scan whole body (11/19/2020 2:10 PM CDT) Anatomical Region Laterality Modality N/A Digital Radiogra phy 11/19/2020 3:07 PM CDT Impressions 11/19/2020 3:59 PM CDT 1. 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 Recommend correlation with cross sectional imaging. 2. Degenerative uptake as described and photopenia secondary to known right knee replacement. Dictated by: Andrew Bowen DR The radiology attending physician has personally reviewed this study, and had reviewed and/or edited this written report and agrees with it. Electronically signed by: Jose Mclean M.D. Narrative 11/19/2020 3:59 PM CDT EXAMINATION: ??BONE SCINTIGRAPHY (WHOLE-BODY) DATE OF STUDY: ?? 11/19/2020 RADIOPHARMACEUTICAL: ?? 20.1 mCi Tc-99m MDP i.v. HISTORY: ??65-year-old female with left breast multifocal invasive ductal carcinoma with axillary metastasis ER / DC positive, 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 09/2014. She received adjuvant anastrozole 12/2015 later switched to tamoxifen 06/2015 and subsequently to exemestane 08/09/2016 for bilateral pulmonary embolism. Bone scintigraphy ordered to rule out osseous metastasis as clinician is planning to start Zometa for osteopenia. FINDINGS: ??Delayed whole-body scintigrams were obtained. ?? Prior nuclear medicine studies used for comparison: prior bone scintigraphy dated 08-13-2014, which was negative for metastatic disease Other radiographic comparisons: CT scan available from 10/04/2018 Increased uptake in the region of bilateral sacroiliac joint, left more than right. This is a new finding. Degenerative tracer uptake in lumbar spine, bilateral midfoot, left knee, bilateral shoulder with mild hyperostosis frontalis interna are benign findings. Photopenia in the right knee consistent with knee replacement history. Procedure Note Jose Mclean MD - 11/19/2020 EXAMINATION: BONE SCINTIGRAPHY (WHOLE-BODY) DATE OF STUDY: 11/19/2020 RADIOPHARMACEUTICAL: 20.1 mCi Tc-99m MDP i.v. HISTORY: 65-year-old female with left breast multifocal invasive ductal carcinoma with axillary metastasis ER / DC positive, 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 09/2014. She received adjuvant anastrozole 12/2015 later switched to tamoxifen 06/2015 and subsequently to exemestane 08/09/2016 for bilateral pulmonary embolism. Bone scintigraphy ordered to rule out osseous metastasis as clinician is planning to start Zometa for osteopenia. FINDINGS: Delayed whole-body scintigrams were obtained. Prior nuclear medicine studies used for comparison: prior bone scintigraphy dated 08-13-2014, which was negative for metastatic disease Other radiographic comparisons: CT scan available from 10/04/2018 Increased uptake in the region of bilateral sacroiliac joint, left more than right. This is a new finding. Degenerative tracer uptake in lumbar spine, bilateral midfoot, left knee, bilateral shoulder with mild hyperostosis frontalis interna are benign findings. Photopenia in the right knee consistent with knee replacement history. IMPRESSION: 1. 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 Recommend correlation with cross sectional imaging. 2. Degenerative uptake as described and photopenia secondary to known right knee replacement. Dictated by: Andrew Bowen DR The radiology attending physician has personally reviewed this study, and had reviewed and/or edited this written report and agrees with it. Electronically signed by: Jose Mclean M.D. Khris Arthur MD IMG NM PROCEDURES Fi nal Result documented in this encounter Visit Diagnoses Diagnosis Malignant neoplasm of upper-inner quadrant of left breast in female, estrogen receptor positive (HCC)- Primary Malignant neoplasm of upper-inner quadrant of left breast in female, estrogen receptor positive (HCC) documented in this encounter Orders General Supply Count Last Ordered Date First Or dered Date MISCELLANEOUS DME 1 11/10/2020 documented in this encounter Care Teams Armature Repairer Relationship Specialty Start Date End Date Justen Gale MD 2 [facility] [address] [place] [address] PCP - General 10/09/17 Liu Jerez MD Consulting Physician Gastroenterology 07/28/[address] [place] [address] [facility] [address] [place] [address] Consulting Physician Pulmonary Disease 08/03/17 [place] [address] [place] [address] [address] [place] [address] Medical Oncologist/Date Puller Medical Oncology 10/23/17 [place] [address] [facility] [address] [place] [address] Surgeon Orthopedic Surgery 10/23/17 [place] [address] [address] Consulting Physician Pain Management 10/23/[address] [place] [address] [facility] [address] [place] [address] Referring Physician General Surgery 01/26/18 [place] [address] [facility] [address] [place] [address] Consulting Physician Neurology 01/26/18 documented as of this encounter
--- OUTSIDE RECORDS SUMMARY | 2024-04-26 04:22 | XMS_ITS | Encounter Summary ---
Author Organization [facility] Address [address] [place] [address] Phone Care Team Providers Care Hand Tacker Name Role Phone Liu Jerez MD Unavailable Albert Corbin MD Unavailable [phone] Justen Gale MD Primary Care Provider Khris Arthur MD Unavailable [phone] Ko Melendez MD Unavailable John Paul Moyer MD Unavailable Annel Rod MD Unavailable Anali MARSHALL MD, Carlos M. Unavailable Encounter Details Date Type Department Care Team (Late st Contact Info) Description 12/15/2020 Orders Only [facility] Oncology [address] [facility] Medicine 7th [place] [address] [place] [address] Radha Mcgrath RN Social History [...] on file Legal Sex Female 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LINE WRITER Gender Identity Not on file Sexual Orientation Not on file documented as of this encounter Plan of Treatment Not on file documented as of this encounter Visit Diagnoses Not on filedocumented in this encounter Care Teams Hand Tacker Relationship Specialty Start Date End Date Justen Gale MD [address] [address] PCP - General 10/09/17 Liu Jerez MD Consulting Physician Gastroenterology 07/28/17 [place] [address] [id number] [place], [place] [id number] Consulting Physician Pulmonary Disease 08/03/17 Khris Arthur MD [address] [facility] [address] [place] [address] Medical Oncologist/Foreign Service Officer Medical Oncology 10/23/17 [place] [address] [facility] [address] [place] [address] Surgeon Orthopedic Surgery 10/23/17 [place] [address] [facility] [address] [place] [address] Consulting Physician Pain Management 10/23/17 [place] [address] [facility] [address] [place] [address] Referring Physician General Surgery 01/26/18 [place] [address] [facility] [address] [place] [address] Consulting Physician Neurology 01/26/18 documented as of this encounter
--- OUTSIDE RECORDS SUMMARY | 2024-04-26 04:22 | XMS_ITS | Encounter Summary ---
Author Organization [facility] Address [address] [place] [address] Phone Care Team Providers Care Automatic Dispenser Mechanic Name Role Phone Liu Jerez MD Unavailable [phone] Albert Corbin MD Unavailable Justen Gale MD Primary Care Provider Khris Arthur MD Unavailable [phone] Ko Melendez MD Unavailable [phone] John Paul Moyer MD Unavailable [phone] Annel Rod MD Unavailable Anali MARSHALL MD, Carlos M. Unavailable [phone] Encounter Details Date Type Department Care Team (Late st Contact Info) Description 01/08/[address] [facility] Oncology [address] [facility] 7th [place] [address] [place] [address] Yesi Keys RN Social History Tobacco Use Types Packs/Day Years Used Date Smoking Tobacco: Former Smokeless Tobacco: Never Comments:remote tobacco use Alcohol Use Standard Drinks/Week Comments No 0 (1 standard drink = 0.6 oz pur e alcohol) PHQ-2 Answer Date Recorded PHQ-2 Score 1 12/15/2018 Comments No Sex and Gender Information Value Date Recorded Sex Assigned at Not on file Legal Sex Female 12:24 AM PHARMACIST INTERN Gender Identity Not on file Sexual Orientation Not on file documented as of this encounter Nursing Notes * Yesi Keys RN - 01/08/2021 10:18 AM CDT I spoke with Karly. She is feeling better and reports only body aches now. Her diagnostic tests were negative at the ER and they attributed her SOB and fever to the Zometa. documented in this encounter Plan of Treatment Not on file documented as of this encounter Visit Diagnoses Not on filedocumented in this encounter Care Teams Automatic Dispenser Mechanic Relationship Specialty Start Date End Date Justen Gale MD 2 [facility] [address] [place] [address] PCP - General 10/09/17 Liu Jerez MD Consulting Physician Gastroenterology 07/28/17 [place] [address] [facility] [address] [place] [address] Consulting Physician Pulmonary Disease 08/03/17 Khris Arthur MD 4921 [facility] [address] [place] [address] Medical Oncologist/Lumber Stacker Driver Medical Oncology 10/23/17 [place] [address] [facility] [address] [place] [address] Surgeon Orthopedic Surgery 10/23/17 [place] [address] [address] Consulting Physician Pain Management 10/23/17 [place] [address] [address] Referring Physician General Surgery 01/26/18 [place] [address] [facility] [address] [place] [address] Consulting Physician Neurology 01/26/18 documented as of this encounter
--- OUTSIDE RECORDS SUMMARY | 2024-04-26 04:22 | XMS_ITS | Encounter Summary ---
Author Organization [facility] Address [address] [place] [address] Phone Care Team Providers Care Educational Therapist Name Role Phone Liu Jerez MD Unavailable [phone] Albert Corbin MD Unavailable [phone] Justen Gale MD Primary Care Provider Khris Arthur MD Unavailable [phone] Ko Melendez MD Unavailable John Paul Moyer MD Unavailable Annel Rod MD Unavailable Anali MARSHALL MD, Carlos M. Unavailable Encounter Details Date Type Department Care Team (Late st Contact Info) Description 02/02/2021 Telephone [facility] Oncology [address] [facility] 7th [place] [address] [place] [address] Jeanine Ba, RMA Social History Tobacco Use Types Packs/Day Years Used Date Smoking Tobacco: Former Smokeless Tobacco: Never Comments:remote tobacco use Alcohol Use Standard Drinks/Week Comments No 0 (1 standard drink = 0.6 oz pur e alcohol) PHQ-2 Answer Date Recorded PHQ-2 Score 1 12/15/2018 Comments No Sex and Gender Information Value Date Recorded Sex Assigned at Not on file Legal Sex Female 12:24 AM COMB CAPPER Gender Identity Not on file Sexual Orientation Not on file documented as of this encounter Miscellaneous Notes * Telephone Encounter - Jeanine Ba MA - 02/02/2021 4:34 PM CDT Geovanna from [facility] called wanting to know how long can the pt hold her Xarelto for her tooth extraction. [phone] Message forwarded to Nurse Radha documented in this encounter Plan of Treatment Not on file documented as of this encounter Visit Diagnoses Not on filedocumented in this encounter Care Teams Educational Therapist Relationship Specialty Start Date End Date Justen Gale MD [address] [address] PCP - General 10/09/17 Liu Jerez MD Consulting Physician Gastroenterology 07/28/17 [place] [address] [facility] [address] [place] [address] Consulting Physician Pulmonary Disease 08/03/17 Khris Arthur MD 49[address] [facility] [address]056 [place] [address] Medical Oncologist/Wastewater Engineer Medical Oncology 10/23/17 [place] [address] [facility] [address] [place] [address] Surgeon Orthopedic Surgery 10/23/17 [place] [address] [address] Consulting Physician Pain Management 10/23/17 [place] [address] [address] Referring Physician General Surgery 01/26/18 [place] [address] [facility] [address] [place] [address] Consulting Physician Neurology 01/26/18 documented as of this encounter
--- OUTSIDE RECORDS SUMMARY | 2024-04-26 04:22 | XMS_ITS | Encounter Summary ---
Author Organization [facility] Address [address] [place] [address] Phone Care Team Providers Care Venue Coordinator Name Role Phone Liu Jerez MD Unavailable [phone] Albert Corbin MD Unavailable Justen Gale MD Primary Care Provider Khris Arthur MD Unavailable [phone] Ko Melendez MD Unavailable John Paul Moyer MD Unavailable Annel Rod MD Unavailable Anali MARSHALL MD, Carlos M. Unavailable [phone] Reason for Visit * Oncology (Routine) - Closed Specialty Diagnoses / Procedures Referred By Contac t Referred To Contact Oncology Diagnoses Malignant neoplasm of overlapping sites of left female breast, unspecified estrogen receptor status (HCC) Procedures ONCBCN ARM DRAW APPT ONC LAB ONLY Khris Arthur MD [address] [facility] [address]22 [place] [address] Phone: tel: fax: Khris Arthur MD 4921 [facility] [address] [place] [address] Phone: tel: fax: Referral ID Status Reason Start Date Expiration Date V isits Requested Visits Authorized [id number] Closed Specialty Services Required 07/23/2020 04/23/2024 99 [phone] Encounter Details Date Type Department Care Team (Latest Contact Info) Description 01/05/2021 5:00 PM CDT Clinical Support [facility] Oncology [facility] 7th [place] [address] [place] [address] Malignant neoplasm of upper-inner quadrant of left breast in female, estrogen receptor positive (CMS/HCC) (HCC) Social History Tobacco Use Types Packs/Day Years Used Date Smoking Tobacco: Former Smokeless Tobacco: Never Comments:remote tobacco use Alcohol Use Standard Drinks/Week Comments No 0 (1 standard drink = 0.6 oz pur e alcohol) PHQ-2 Answer Date Recorded PHQ-2 Score 1 12/15/2018 Comments No Sex and Gender Information Value Date Recorded Sex Assigned at Not on file Legal Sex Female 12:24 AM QUALITY LEAD Gender Identity Not on file Sexual Orientation Not on file documented as of this encounter Plan of Treatment Not on file documented as of this encounter Procedures Procedure Name Priority Date/Time Associated Diagnosis Comments EGFR STAT 01/05/2021 4:20 PM CDT Malignant 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 60 - 89 mL/min/1.73m2 Mildly to moderately decreased ?45 - 59 mL/min/1.73m2 Moderately to severely decreased ??30 - 44 mL/min/1.73m2 Severely decreased ?15 - 29 mL/min/1.73m2 Kidney Failure ?< 15 ??mL/min/1.73m2 *Relative to young adult level Estimated glomerular filtration rate is determined by the CKD-EPI equation recommended by the National Kidney Foundation (KDIGO 2012 Clinical Practice Guideline for the Evaluation and Management of Chronic Kidney Disease. Kidney Intnl Suppl Apr 2012;3:1). The CKD-EPI equation should not be used for patients with unstable renal function and has not been validated in children and those over 70. Current interpretive data was last reviewed 2020 Testing performed by: [facility], [address] [place] [phone] Blood 01/05/2021 4:20 PM CDT 01/05/2021 4:25 PM CDT Khris Arthur MD LAB BLOOD ORDERABLES Final Result [facility] Department of Laboratories [place], [place] [id number] * (ABNORMAL) Comprehensive metabolic panel (01/05/2021 4:20 PM CDT) [facility] Sodium 137 135 - 145 mmol/L MARY JANE ANGELES Comment:Testing performed by : [facility], [address] [place] [phone] Potassium, pl 5.1(H) 3.3 - 4.9 mmol/L MARY JANE ANGELES Comment: Hemolyzed; result may be falsely elevated. Testing performed by: [facility], [address] [place] [phone] Chloride 99 97 - 110 mmol/L CERNER BJ Comment:Testing performed by : [facility], [address] [place] [phone] CO2 29 22 - 32 mmol/L CERNER BJ Comment:Testing performed by : [address] [phone] Anion gap 9 2 - 15 mmol/L CERNER BJ Comment:Testing performed by : [facility], [address] [place], [place] [phone] BUN 13 8 - 25 mg/dL CERNER BJ Comment:Testing performed by : [facility], [address] [place] [phone] Creatinine 0.72 0.60 - 1.10 mg/dL CERNER BJ Comment:Testing performed by : [address] [address] Glucose 165 70 - 199 mg/dL CERNER [...] was last revised 2017. Testing performed by: [facility], [address] [place] [phone] Calcium 9.5 8.5 - 10.3 mg/dL CERNER BJ Comment:Testing performed by : [facility], [address] [place] [phone] Bilirubin, total 0.4 0.1 - 1.2 mg/dL CERNER BJ Comment:Testing performed by : [address] [phone] Protein, pl 8.6(H) 6.5 - 8.5 g/dL C[facility]ER [facility]H Comment:Testing performed by : [facility], [address] [facility] [address] Albumin 4.0 3.5 - 5.0 g/dL [facility] Comment:Testing performed by : [facility], [address] [place] [phone] Alk phos 100 40 - 130 Units/L [facility] Comment:Testing performed by : [facility], [address] [place] [phone] ALT 21 7 - 45 Units/L [facility] Comment:Testing performed by : [facility], [address] [place] [phone] AST 27 10 - 45 Units/L [facility] Comment: Hemolyzed; result may be falsely elevated. Testing performed by: [facility], [address] [place] [phone] Blood 01/05/2021 4:20 PM CDT 01/05/2021 4:25 PM CDT us Khris Arthur MD LAB BLOOD ORDERABLES Final Result [facility] One [facility] Department [place] [address] documented in this encounter Visit Diagnoses Diagnosis Malignant neoplasm of upper-inner quadrant of left breast in female, estrogen receptor positive (HCC) documented in this encounter Care Teams Venue Coordinator Relationship Specialty Start Date End Date Justen Gale MD [address] [address] PCP - General 10/09/17 Liu Jerez MD Consulting Physician Gastroenterology 07/28/17 [place] [address] [facility] [address] [place] [address] Consulting Physician Pulmonary Disease 08/03/17 [place] [address] [place] [address] 8[address] [place] [address] Medical Oncologist/Administrative Asst Medical Oncology 10/23/17 [place] [address] [address] Surgeon Orthopedic Surgery 10/23/17 [place] [address] [address] Consulting Physician Pain Management 10/23/17 [place] [address] [facility] [address] [place] [address] Referring Physician General Surgery 01/26/18 [place] [address] [facility] [address] [place] [address] Consulting Physician Neurology 01/26/18 documented as of this encounter
--- OUTSIDE RECORDS SUMMARY | 2024-04-26 04:22 | XMS_ITS | Encounter Summary ---
Author Organization [facility] Address [address] [place] [address] Phone Care Team Providers Care Quality Assurance Associate Name Role Phone Liu Jerez MD Unavailable Albert Corbin MD Unavailable Justen Gale MD Primary Care Provider Khris Arthur MD Unavailable [phone] Ko Melendez MD Unavailable [phone] John Paul Moyer MD Unavailable Annel Rod MD Unavailable Anali MARSHALL MD, Carlos M. Unavailable Encounter Details Date Type Department Care Team (Late st Contact Info) Description 11/20/2020 Orders Only [facility] Oncology [address] [facility] 7th [place] [address] [place] [address] Khris Arthur MD 4921 [facility] [address] [place] [address] Malignant neoplasm of upper-inner quadrant of left breast in female, estrogen receptor positive (CMS/HCC) (HCC) (Primary Dx); Bone pain Social History Tobacco Use Types Packs/Day Years Used Date Smoking Tobacco: Former Smokeless Tobacco: Never Comments:remote tobacco use Alcohol Use Standard Drinks/Week Comments No 0 (1 standard drink = 0.6 oz pur e alcohol) PHQ-2 Answer Date Recorded PHQ-2 Score 1 12/15/2018 Comments No Sex and Gender Information Value Date Recorded Sex Assigned at Not on file Legal Sex Female 12:24 AM WOOL TAMPER Gender Identity Not on file Sexual Orientation Not on file documented as of this encounter Plan of Treatment Not on file documented as of this encounter Visit Diagnoses Diagnosis Malignant neoplasm of upper-inner quadrant of left breast in female, estrogen receptor positive (HCC)- Primary Bone pain Disorder of bone and cartilage, unspecified documented in this encounter Care Teams Quality Assurance Associate Relationship Specialty Start Date End Date Justen Gale MD [address] [address] PCP - General 10/09/17 Liu Jerez MD Consulting Physician Gastroenterology 07/28/17 [place] [address] [facility] H[address] [place] [address] Consulting Physician Pulmonary Disease 08/03/17 Khris Arthur MD 4921 [facility] [address] [place], [place] [id number] Medical Oncologist/Sales Product Manager Medical Oncology 10/23/17 [place] [address] [facility] [address] [place] [address] Surgeon Orthopedic Surgery 10/23/17 [place] [address] [address] Consulting Physician Pain Management 10/23/17 [place] [address] [address] Referring Physician General Surgery 01/26/18 [place] [address] [facility] [address] [place] [address] Consulting Physician Neurology 01/26/18 documented as of this encounter
--- OUTSIDE RECORDS SUMMARY | 2024-04-26 04:22 | XMS_ITS | Encounter Summary ---
Author Organization [facility] Address [address] [place] [address] Phone Care Team Providers Care Button Sewing Machine Operator Name Role Phone Liu Jerez MD Unavailable Albert Corbin MD Unavailable Justen Gale MD Primary Care Provider Khris Arthur MD Unavailable [phone] Ko Melendez MD Unavailable John Paul Moyer MD Unavailable Annel Rod MD Unavailable Anali MARSHALL MD, Carlos M. Unavailable [phone] Encounter Details Date Type Department Care Team (Late st Contact Info) Description 01/06/2021 Orders Only [facility] Oncology [address] [place] [address] Jo Pfeiffer, RN Social History Tobacco Use Types Packs/Day Years Used Date Smoking Tobacco: Former Smokeless Tobacco: Never Comments:remote tobacco use Alcohol Use Standard Drinks/Week Comments No 0 (1 standard drink = 0.6 oz pur e alcohol) PHQ-2 Answer Date Recorded PHQ-2 Score 1 12/15/2018 Comments No Sex and Gender Information Value Date Recorded Sex Assigned at Not on file Legal Sex Female 12:24 AM FRANCHISE SALES DIRECTOR Gender Identity Not on file Sexual Orientation Not on file documented as of this encounter Plan of Treatment Not on file documented as of this encounter Visit Diagnoses Not on filedocumented in this encounter Care Teams Button Sewing Machine Operator Relationship Specialty Start Date End Date Justen Gale MD 2 [facility] [address] [place] [address] PCP - General 10/09/17 Liu Jerez MD Consulting Physician Gastroenterology 07/28/[address] [place] [address] [facility] [address] [place] [address] Consulting Physician Pulmonary Disease 08/03/17 Khris Arthur MD [address] [facility] [address] [place] [address] Medical Oncologist/Visual Education Director Medical Oncology 10/23/[address] [place] [address] [facility] [address] [place] [address] Surgeon Orthopedic Surgery 10/23/17 [place] [address] [facility] [address] [place] [address] Consulting Physician Pain Management 10/23/[address] [place] [address] [facility] [address] [place] [address] Referring Physician General Surgery 01/26/18 [place] [address] [facility] [address] [place] [address] Consulting Physician Neurology 01/26/18 documented as of this encounter
--- OUTSIDE RECORDS SUMMARY | 2024-04-26 04:22 | XMS_ITS | Encounter Summary ---
Author Organization [facility] Healthcare Address [address] [place] [address] Care Team Providers Care Slotter Operator Name Role Phone Liu Jerez MD Unavailable Albert Corbin MD Unavailable [phone] Justen Gale MD Primary Care Provider Khris Arthur MD Unavailable [phone] Ko Melendez MD Unavailable [phone] John Paul Moyer MD Unavailable Annel Rod MD Unavailable Anali MARSHALL MD, Carlos M. Unavailable [phone] Encounter Details Date Type Department Care Team (Late st Contact Info) Description 09/11/2021 [facility] Only [facility] Lab [address] [place] [address] Farzaneh Chase RN Social History Tobacco Use Types Packs/Day [...] on file Legal Sex Female 12:24 AM DATA MANAGEMENT MANAGER Gender Identity Not on file Sexual Orientation Not on file documented as of this encounter Plan of Treatment Not on file documented as of this encounter Visit Diagnoses Not on filedocumented in this encounter Care Teams Slotter Operator Relationship Specialty Start Date End Date Justen Gale MD 2 [facility] [address] [place] [address] PCP - General 10/09/17 Liu Jerez MD Consulting Physician Gastroenterology 07/28/17 [place] [address] [facility] [address] [place] [address] Consulting Physician Pulmonary Disease 08/03/17 Khris Arthur MD 49[address] [facility] [address] [place] [address] Medical Oncologist/Machine Quilt Stuffer Medical Oncology 10/23/17 [place] [address] [facility] [address] [place] [address] Surgeon Orthopedic Surgery 10/23/17 [place] [address] [facility] [address] [place] [address] Consulting Physician Pain Management 10/23/17 [place] [address] [facility] [address] [place] [address] Referring Physician General Surgery 01/26/18 [place] [address] [facility] [address] [place] [address] Consulting Physician Neurology 01/26/18 documented as of this encounter
--- OUTSIDE RECORDS SUMMARY | 2024-04-26 04:22 | XMS_ITS | Encounter Summary ---
Author Organization [facility] Healthcare Address [address] [place] [address] Care Team Providers Care Improvement Analyst Name Role Phone Liu Jerez MD Unavailable Albert Corbin MD Unavailable Justen Gale MD Primary Care Provider [phone] Khris Arthur MD Unavailable Ko Melendez MD Unavailable John Paul Moyer MD Unavailable Annel Rod MD Unavailable Anali MARSHALL MD, Carlos M. Unavailable Reason for Referral * Diagnostic Imaging (Routine) - Closed Specialty Diagnoses / Procedures Referred By Contkristina t Referred To Contact Diagnoses Malignant neoplasm of upper-inner quadrant of left breast in female, estrogen receptor positive (HCC) Procedures NM bone scan whole body Khris Arthur MD 86[address] [facility] [address] [place] [address] Phone: tel: fax: [address] [address] Referral ID Status Reason Start Date Expiration Date Visits Re quested Visits Authorized [id number] Closed 11/13/2020 12/28/2020 2 1 Reason for Visit * Diagnostic Imaging (Routine) - Closed Specialty Diagnoses / Procedures Referred By Elyssa t Referred To Contact Diagnoses Malignant neoplasm of upper-inner quadrant of left breast in female, estrogen receptor positive (HCC) Procedures NM bone scan whole body Khris Arthur MD [address] [address] Phone: tel: fax: [address] [address] Referral ID Status Reason Start Date Expiration Date Visits Re quested Visits Authorized [id number] Closed 11/13/2020 12/28/2020 2 1 Encounter Details Date Type Department Care Team (Latest Contact Info) Description 11/19/2020 10:09 AM CDT - 11/19/2020 11:59 PM CDT Hospital Encounter [facility] [address] [place] [id number] Khris Arthur MD [address] [address] Malignant neoplasm of upper-inner quadrant of left breast in female, estrogen receptor positive (CMS/HCC) (HCC) Discharge Disposition: Discharge to home or [...] on file 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 20 tablet 06/27/2018 2 exemestane (AROMASIN) 25 mg tabletIndications:Mal ignant neoplasm of upper-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, unspecified estrogen receptor status (HCC),Malignant neoplasm of overlapping sites of left female breast, unspecified estrogen receptor status (HCC),Malignant neoplasm of female breast, unspecified estrogen receptor status, unspecified laterality, unspecified site of breast (HCC) TAKE 1 TABLET(25 MG) BY MOUTH DAILY AFTER A MEAL 90 tablet 11/05/2020 1 HYDROcodone-acetamino phen (NORCO) 5-325 mg per tabletIndications:Gianna n Take by mouth. 01/01/2018 2 insulin glargine (LANTUS) 100 unit/mL injection Inject 40 Units under the skin daily. Takes in the morning 01/26/2018 4 insulin lispro (HumaLOG) 100 unit/mL injection Inject 12 Units under the skin 3 (three) times a day before meals. 01/26/2018 4 lisinopril (PRINIVIL,ZESTRIL) 20 mg tablet Take 20 mg by mouth. 05/11/2012 2 mirabegron ER (MYRBETRIQ) 25 mg tablet extended release 24 hr Take 25 mg by mouth daily 09/04/2020 2 oxybutynin (DITROPAN) 5 mg tablet take 1 tablet by oral route every day 0 0 12/12/2013 3 rivaroxaban (Xarelto) 20 mg tabletIndications:Oth er pulmonary [...] total) by mouth daily 30 tablet 1 10/28/2020 1 documented as of this encounter Discharge Disposition Disposition Code Departure Means Destination Discharge to home or self care documented in this encounter Plan of Treatment Not on file documented as of this encounter Procedures Procedure Name Priority Date/Time Associated Diagnosis Comments NM BONE IMAGING WHOLE BODY Schedule Routine, Read Routine (OP Routine) 11/19/2020 2:10 PM CDT Malignant neoplasm of upper-inner quadrant of left breast in female, estrogen receptor positive (CMS/HCC) (HCC) documented in this encounter Results * NM bone scan [...] 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, 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 [...] 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, 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 [...] receptor positive (HCC) documented in this encounter Administered Medications Inactive Administered Medications - up to 3 most recent administrations Medication Order MAR Action Action Date Dose Rate Site tc-99m medronate (MDP) injection 20 millicurie 20 millicurie, intravenous, Once in imaging, radiopharmaceutical, Starting on Valeri 11/19/20 at 1115, For 1 dose, Indications: Diagnostic RadiographyIndications:Pratibha gnostic Radiography Given 11/19/2020 10:55 AM CDT 20.1 millicuries documented in this encounter Orders Medications Ordered That Tyler ht Not Have Been Administered Count Last Ordered Date First Ordered Date tc-99m medronate (MDP) injec tion 20 millicurie 1 11/19/2020 documented in this encounter Care Teams Improvement Analyst Relationship Specialty Start Date End Date Justen Gale MD 2 [facility] [address] [place] [address] PCP - General 10/09/17 Liu Jerez MD Consulting Physician Gastroenterology 07/28/17 [place] [address] [facility] [address] [place] [address] Consulting Physician Pulmonary Disease 08/03/17 [place] [address] [place] [address] [address] [place] [address] Medical Oncologist/Service Administrator Medical Oncology 10/23/17 [place] [address] [facility] [address] [place] [address] Surgeon Orthopedic Surgery 10/23/17 [place] [address] [address] Consulting Physician Pain Management 10/23/17 [place] [address] [facility] [address] [place] [address] Referring Physician General Surgery 01/26/18 [place] [address] [facility] [address] [place] [address] Consulting Physician Neurology 01/26/18 documented as of this encounter
--- OUTSIDE RECORDS SUMMARY | 2024-04-26 04:22 | XMS_ITS | Encounter Summary ---
Author Organization [facility] Address [address] [place] [address] Phone Care Team Providers Care Heating Mechanic Name Role Phone Liu Jerez MD Unavailable [phone] Albert Corbin MD Unavailable Justen Gale MD Primary Care Provider Khris Arthur MD Unavailable [phone] Ko Melendez MD Unavailable John Paul Moyer MD Unavailable Annel Rod MD Unavailable Anali MARSHALL MD, Carlos M. 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 Gender Identity Not on file Sexual Orientation Not on file documented as of this encounter Plan of Treatment Not on file documented as of this encounter Visit Diagnoses Diagnosis Malignant neoplasm of upper-inner quadrant of left breast in female, estrogen receptor positive (HCC)- Primary documented in this encounter Care Teams Heating Mechanic Relationship Specialty Start Date End Date Justen Gale MD 2 [facility] [address] [place] [address] PCP - General 10/09/17 Liu Jerez MD Consulting Physician Gastroenterology 07/28/17 [place] [address] [facility] [address] [place] [address] Consulting Physician Pulmonary Disease 08/03/17 Khris Arthur MD 4921 [facility] [address] [place] [address] Medical Oncologist/Photogrammetrist Medical Oncology 10/23/17 [place] [address] [facility] [address] [place] [address] Surgeon Orthopedic Surgery 10/23/17 [place] [address] [facility] [address] [place] [address] Consulting Physician Pain Management 10/23/17 [place] [address] [facility] [address] [place] [address] Referring Physician General Surgery 01/26/18 [place] [address] [facility] [address] [place] [address] Consulting Physician Neurology 01/26/18 documented as of this encounter
--- OUTSIDE RECORDS SUMMARY | 2024-04-26 04:22 | XMS_ITS | Encounter Summary ---
Author Organization [facility] Address [address] [place] [address] Phone Care Team Providers Care Union Contract Representative Name Role Phone Liu Jerez MD Unavailable Albert Corbin MD Unavailable Justen Gale MD Primary Care Provider Khris Arthur MD Unavailable [phone] Ko Melendez MD Unavailable John Paul Moyer MD Unavailable Annel Rod MD Unavailable Anali MARSHALL MD, Carlos M. 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 She is agreeable to this and will get this done today at [facility]. Phone is [phone], fax is [phone] ----- Message from Khris Arthur MD sent at 11/19/2020 9:55 PM CDT ----- Can we get xrays of bilateral sacroiliac joint ----- Message ----- From: Interface, Radiology Results In Sent: 11/19/2020 4:01 PM CDT To: Khris Arthur MD documented in this encounter Plan of Treatment Not on file documented as of this encounter Visit Diagnoses Not on filedocumented in this encounter Care Teams Union Contract Representative Relationship Specialty Start Date End Date Justen Gale MD [address] [place] [address] PCP - General 10/09/17 Liu Jerez MD Consulting Physician Gastroenterology 07/28/17 [place] [address] [facility] [address] [place] [address] Consulting Physician Pulmonary Disease 08/03/17 Khris Arthur MD [address] [facility] [address] [place] [address] Medical Oncologist/Freight Weigher Medical Oncology 10/23/17 [place] [address] [facility] [address] [place] [address] Surgeon Orthopedic Surgery 10/23/17 [place] [address] [facility] [address] [place] [address] Consulting Physician Pain Management 10/23/17 [place] [address] [facility] [address] [place] [address] Referring Physician General Surgery 01/26/18 [place] [address] [facility] [address] [place] [address] Consulting Physician Neurology 01/26/18 documented as of this encounter
--- OUTSIDE RECORDS SUMMARY | 2024-04-26 04:22 | XMS_ITS | Encounter Summary ---
Author Organization [facility] Address [address] [place] [address] Phone Care Team Providers Care Rug Dyer Helper Name Role Phone Liu Jerez MD Unavailable [phone] Albert Corbin MD Unavailable Justen Gale MD Primary Care Provider Khris Arthur MD Unavailable [phone] Ko Melendez MD Unavailable John Paul Moyer MD Unavailable [phone] Annel Rod MD Unavailable Anali MARSHALL MD, Carlos M. 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 Geovanna expressed understanding of this. ----- Message from Angeline Cool NP sent at 02/08/2021 9:36 AM CDT ----- Radha she can resume the day after the procedure. ----- Message ----- From: Khris Arthur MD Sent: 02/06/2021 2:02 PM CDT To: Radha Mcgrath RN, # She shouldn't need lovenox bridge, last PE was 2016. ----- Message ----- From: Angeline Cool NP Sent: 02/05/2021 12:04 PM CDT To: Khris Arthur MD, Radha Mcgrath RN 2 days with normal crcl 3 days if crcl low- up to bryce or cards if she needs lovenox bridge dependson reason she is on it ----- Message ----- From: Radha Mcgrath RN Sent: 02/05/2021 10:10 AM CDT To: Khris Arthur MD, # How long does she need to hold xarelto for a tooth extraction? thx ----- Message ----- From: Jeanine Ba MA Sent: 02/02/2021 4:32 PM CDT To: NURIS Hi from [facility] wanting to know how long can the pt hold her Xarelto for her tooth extraction. [phone] documented in this encounter Plan of Treatment Not on file documented as of this encounter Visit Diagnoses Not on filedocumented in this encounter Care Teams Rug Dyer Helper Relationship Specialty Start Date End Date Justen Gale MD [address] [address] PCP - General 10/09/17 Liu Jerez MD Consulting Physician Gastroenterology 07/28/17 [place] [address] [id number] [place], [place] [id number] Consulting Physician Pulmonary Disease 08/03/17 Khris Arthur MD 49[address] [facility] [address] [place] [address] Medical Oncologist/Livestock Exhibitor Medical Oncology 10/23/17 [place] [address] [facility] [address] [place] [address] Surgeon Orthopedic Surgery 10/23/17 [place] [address] [facility] [address] [place] [address] Consulting Physician Pain Management 10/23/17 [place] [address] [facility] [address] [place] [address] Referring Physician General Surgery 01/26/18 [place] [address] [facility] [address] [place] [address] Consulting Physician Neurology 01/26/18 documented as of this encounter
--- OUTSIDE RECORDS SUMMARY | 2024-04-26 04:22 | XMS_ITS | Encounter Summary ---
Author Organization [facility] Address [address] [place] [address] Phone Care Team Providers Care Loom Fixer Name Role Phone Liu Jerez MD Unavailable [phone] Albert Corbin MD Unavailable Justen Gale MD Primary Care Provider Khris Arthur MD Unavailable [phone] Ko Melendez MD Unavailable [phone] John Paul Moyer MD Unavailable Annel Rod MD Unavailable Anali MARSHALL MD, Carlos M. 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 Gender Identity Not on file Sexual [...] total) by mouth daily 30 tablet 4 03/22/2021 2 documented in this encounter Plan of [...] Discontinue Reason Start Date End Da te Xarelto 20 mg tabletIndications:Other pulmonary embolism without acute cor pulmonale, unspecified chronicity (HCC),Malignant neoplasm of upper-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, unspecified estrogen receptor status (HCC),Malignant neoplasm of overlapping sites of left female breast, unspecified estrogen receptor status (HCC),Malignant neoplasm of female breast, unspecified estrogen receptor status, unspecified laterality, unspecified site of breast (HCC),History of pulmonary embolism,History of DVT (deep vein thrombosis),Chronic anticoagulation TAKE 1 TABLET(20 MG) BY MOUTH DAILY Reorder 01/03/2021 03/22/2021 documented as of this encounter Care Teams Loom Fixer Relationship Specialty Start Date End Date Justen Gale MD [address] [address] PCP - General 10/09/17 Liu Jerez MD Consulting Physician Gastroenterology 07/28/17 [place] [address] [address] [id number] [place] [address] Consulting Physician Pulmonary Disease 08/03/17 Khris Arthur MD 4921 [facility] [address] [place] [address] Medical Oncologist/Skull Splitter Medical Oncology 10/23/17 [place] [address] [facility] [address] [place] [address] Surgeon Orthopedic Surgery 10/23/17 [place] [address] [facility] [address] [place] [address] Consulting Physician Pain Management 10/23/17 [place] [address] [facility] [address] [place] [address] Referring Physician General Surgery 01/26/18 [place] [address] [facility] [address] [place] [address] Consulting Physician Neurology 01/26/18 documented as of this encounter
--- OUTSIDE RECORDS SUMMARY | 2024-04-26 04:22 | XMS_ITS | Encounter Summary ---
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 Gender Identity Not on file Sexual Orientation Not on file documented as of this encounter Last Filed Vital Signs Vital Sign Reading Time Taken Comments Blood Pressure 151/92 08/16/2021 1:53 PM CDT Pulse 78 08/16/2021 1:53 PM CDT Temperature 36.6 ??C (97.9 ??F) 08/16/2021 9:55 AM CD T Respiratory Rate 18 08/16/2021 9:55 AM CDT Oxygen Saturation 98% 08/16/2021 1:53 PM CDT Inhaled Oxygen Concentration - - Weight 128.1 kg (282 lb 6.6 oz) 08/16/2021 9:50 AM CDT Height 154.9 cm (5' 1 ) 08/16/2021 9:50 AM CDT Body Mass Index 53.36 08/16/2021 9:50 AM CDT documented in this encounter Discharge Instructions * Discharge Instructions* Abiola Lees PA - 08/16/2021 2:10 PM CDT Follow-up as recommended is mandatory. You have [...] be sent through Care Everywhere. * Acute Abdominal Pain (Vocational Rehabilitation Supervisor) (Romanian) * Urinary Incontinence (AfterCare(R) Instructions(ER/ED)) (Romanian) * Acute Nausea and Vomiting (AfterCare(R) Instructions(ER/ED)) (Romanian) documented in this encounter Medications at [...] total) by mouth nightly Taken at 2100 acetaminophen-codei ne (TYLENOL with CODEINE #3) 300-30 mg per tablet acetaminophen 300 mg-codeine 30 mg tablet 022 amitriptyline (ELAVIL) 25 mg tablet Take 25 mg by mouth nightly 9 024 aspirin 325 mg tablet Take 325 mg by mouth daily 1 022 baclofen (LIORESAL) 10 mg tablet baclofen 10 mg tablet 022 clonazePAM (KlonoPIN) 1 mg tablet Take 1 tablet (1 mg total) by mouth 2 (two) times a day for 10 days . 20 tablet 9 022 clotrimazole-betame thasone (LOTRISONE) cream clotrimazole-betamet hasone 1 [...] total) by mouth nightly 90 tablet 2 famotidine (PEPCID) 20 mg tablet Take 20 mg by mouth 2 (two) times a day 1 gabapentin (NEURONTIN) 300 mg capsule gabapentin 300 [...] (three) times a day before meals. 8 024 lisinopril (PRINIVIL,ZESTRIL) 20 mg tablet Take 20 [...] ointment ondansetron ODT (ZOFRAN-ODT) 4 mg disintegrating tabletIndications:N ausea Take 1 tablet (4 mg total) by mouth every 8 (eight) hours as needed for nausea or vomiting 20 tablet 2 oxybutynin (DITROPAN) 5 mg tablet take 1 tablet by oral route every day [address] (PROTONIX) 40 mg EC tablet pantoprazole 40 mg tablet,delayed release prochlorperazine (COMPAZINE) 10 mg tablet prochlorperazine maleate [...] total) by mouth daily 30 tablet 1 2 selenium sulfide 2.5 % lotion selenium sulfide 2.5 % shampoo APPLY TO THE AFFECTED AREAS BY TOPICAL ROUTE TWICE WEEKLY LATHER LEAVE ON 10 MINUTES AND RINSE OFF sucralfate (CARAFATE) 1 gram tablet Take 1 g by mouth 4 (four) times a day 11/10/202 1 022 documented as of this encounter Ordered Prescriptions Prescription Sig Dispense Quantity Refills Last Filled Start Date End Date ondansetron ODT (ZOFRAN-ODT) 4 mg disintegrating tabletIndications:Na usea Take 1 tablet (4 mg total) by mouth every 8 (eight) hours as needed for nausea or vomiting 20 tablet 08/16/2021 2 documented in this encounter Discharge Disposition Disposition Code Departure Means Destination Discharge to home or self care documented in this encounter ED Notes * Abiola Lees PA - 08/16/2021 9:58 AM CDT HPI Chief Complaint Patient presents with ??? Flank Pain ??? Urinary Frequency HPI 2:10 PM Karly Marques is a 66 y.o. female presenting to the ED c/o right flank pain that began yesterday. The patient states she has also had lower abdominal pain, urinary frequency and incontinence more than normal. The patient states she has had nausea but no vomiting. No fever or chills. Sheis generally feeling weak and is concerned that she has another kidney infection. Patient states she has chronic back pain but this does not feel like that. She was just recently hospitalized on August 01 with a kidney infection and was discharged with IV antibiotics. She does not see a urologist.She does report she is normally mildly incontinent of urine. Pain 10/31. Patient took a hydrocodone a round 05:00 without relief. Patient History: Past Medical History: Diagnosis Date [...] Triage Vitals Temp Pulse Resp BP SpO2 08/16/21 0955 08/16/21 0955 08/16/21 0955 08/16/21 0955 08/16/21 09 36.6 ??C (97.9 ??F) 86 18 (!) 196/98 99 % Temp src Heart Rate Source Patient Position BP Location FiO2 (%) 08/16/21 0955 08/16/21 1230 -- 08/16/21 1230 -- Oral Pulse Oximetry Right arm Physical Exam Vitals and nursing note reviewed. Constitutional: General: She is not in acute distress. Appearance: She is well-developed. She is morbidly obese. HENT: Head: Normocephalic and atraumatic. Mouth/Throat: [...] abdominal tenderness. There is right CVA tenderness. There is no guarding or rebound. Hernia: No hernia is present. Comments: Tender to entire lower abdomen Musculoskeletal: General: No tenderness or deformity. Normal [...] Thought content normal. Judgment: Judgment normal. Procedures MDM Labs Reviewed URINALYSIS AND REFLEX TO MICROSCOPIC AND CULTURE - Abnormal Result Value Color, ur Yellow Clarity, ur Clear Specific gravity, ur 1.025 pH, urine 5.0 Protein, ur ql Negative [...] tendency for uric acid stone formation. Source: [employer].Last revised 05-04-2017 CBC WITH AUTO DIFFERENTIAL - Abnormal WBC 9.8 Hgb 14.0 Hct 44.9 Plt 304 MPV 9.7 RBC 4.85 MCV 92.6 MCH 28.9 MCHC 31.2 (*) RDW CV 14.0 RDW SD 47.5 NRBC abs 0.00 COMPREHENSIVE METABOLIC PANEL - Abnormal Sodium 137 Potassium, pl 4.7 Chloride 101 CO2 28 Anion gap 8 BUN 15 Creatinine 0.60 Glucose 261 (*) Calcium 9.7 Bilirubin, total 0.5 Protein, pl 8.2 Albumin 3.9 Alk phos 86 ALT 20 AST 17 URINALYSIS, MICROSCOPIC ONLY - Abnormal WBC, ur 0-5 RBC, ur 0-2 Epithelial cells, squamous, ur 6-10 (*) Mucous, ur Present (*) Hyaline casts, ur 1-5 Culture Reflex Comment Value: Reflex conditions for urine culture (WBC >10) not met. POCT GLUCOSE DEVICE - Abnormal Glucose, POC 215 (*) Glucose comment 1 Use This Result LIPASE Lipase 25 DIFFERENTIAL AUTO Neutrophil abs 6.2 Imm gran abs 0.1 Lymphocyte abs 2.5 Monocyte abs 0.7 Eosinophil abs 0.3 Basophil abs 0.0 Neutrophil pct 63.6 Imm gran pct 0.6 Lymphocyte pct 25.7 Monocyte pct 7.2 Eosinophil pct 2.6 Basophil pct 0.[address] Abdomen Pelvis WO Contrast Final Result BP 151/92 (BP Location: Right arm) Pulse 78 Temp 36.6 ??C (97.9 ??F) (Oral) Resp 18 Ht 154.9 cm (5' 1 ) Wt 128.1 kg (282 lb 6.6 oz) SpO2 98% BMI 53.36 kg/m?? MDM Number of Diagnoses or Management Options Acute right flank pain: new and requires workup Incontinent of urine: new and requires workup Lower abdominal pain: new and requires workup Nausea: new and requires workup Diagnosis management comments: [...] radiology section of CPT??: ordered and reviewed Risk of Complications, Morbidity, and/or Mortality Presenting problems: moderate Diagnostic procedures: moderate Management options: moderate Patient Progress Patient progress: stable ED Course as of 08/16/21 1410 Time: 08/17 1335 Comment: The patient has been informed that they may have pre-hypertension or Hypertension based ngoc blood pressure reading in the emergency department. I recommend that the patient call the primarycare provider listed on their discharge instructions or a physician of their choice this week to arrange follow up for further evaluation of possible pre-hypertension or Hypertension. By: Abiola Lees PA Time: 08/17 1335 Comment: CT of the abdomen and pelvis does not show anything acute. The patient's urine is clear. She does have a history of chronic back pain and I suspect she may be having an exacerbation of this.There is no sign of infection. She should follow-up with her primary doctor and pain management forfurther evaluation. For now I will start her on Zofran p.r.n. By: Abiola Lees PA Time: 08/16 5465 Comment: I did explain to the patient that if her urine culture comes back positive we will call her but at this time there is no indication to treat her with antibiotics By: Abiola Lees PA Clinical Impression: Acute right flank pain Incontinent of urine Nausea Lower abdominal pain 2:10 PM Rechecked Karly Marques is resting comfortably and feeling better. I discussed the results of diagnostic studies, my clinical impression, and the plan for further treatment with Karly Campoverde. Patient agrees with plan and discharge at this time, all questions addressed. Pt is medically stable for discharge at this time. I have given Kalry Marques instructions regarding the diagnosis, expectations, follow up, and return precautions. I explained to the patient that emergent conditions may arise and to return to the ER for new, worsening, or any persistent conditions. I've explained the importance of following upwith the referral physician as instructed. The patient verbalized understanding of the discharge instructions. New Medications: New Prescriptions ONDANSETRON ODT (ZOFRAN-ODT) 4 MG DISINTEGRATING TABLET Take 1 tablet (4 mg total) by mouth every 8(eight) hours as needed for nausea or vomiting I have advised the patient to follow-up with: Justen Gale MD [address] [place] [id number] DIAGNOSIS: 1. Acute right flank pain 2. Incontinent of urine 3. Nausea 4. Lower abdominal pain Disposition: Discharged Abiola Lees PA 08/16/21 1004 Abiola Lees PA 08/16/21 1006 Abiola Lees PA 08/16/21 1006 Abiola Lees PA 08/16/21 1411 Cosigned by Gil Diez DO at 08/17/2021 6:32 AM CDT * Analy Mcmillan RN - 08/16/2021 9:53 AM CDT Pt was admitted to hospital on August 01 w/kidney infection. Was on IV antibiotics and discharged.Pt w/right flank pain today and states has had incontinence and urinary frequency. Onset yesterday.Pt concerned that infection is back. C/o nausea, no vomiting. Feels weak. documented in this encounter Plan of Treatment Not on file documented as of this encounter Procedures Procedure Name Priority Date/Time Associated Diagnosis Comments POCT GLUCOSE DEVICE Routine 08/16/2021 1 2:[address] ABDOMEN PELVIS WO CONTRAST ED 08/16/2021 12:20 PM CDT EGFR STAT 08/16/2021 10:47 AM CDT DIFFERENTIAL AUTO STAT 08/16/2021 10: 47 AM CDT URINALYSIS AND REFLEX TO MICROSCOPIC AND CULTURE STAT 08/16/2021 10:47 AM CDT CBC WITH AUTO DIFFERENTIAL STAT 08/16/2021 10:47 AM CDT URINALYSIS, MICROSCOPIC ONLY STAT 08/16/2021 10:47 AM CDT LIPASE STAT 08/16/2021 10:47 AM CDT COMPREHENSIVE METABOLIC PANEL STAT 08/16/2021 10:47 AM CDT documented in this encounter Results * (ABNORMAL) POCT glucose (08/16/2021 12:35 PM CDT) Glucose, POC 215(H) 70 - 199 mg/dL MARY JANE PHAM Comment:Testing performed by : [facility], [address] [place] [address]., [address] Glucose comment 1 Use This Result MARY JANE PHAM Comment:Testing performed by : [facility], [address] [place] [address]., [id number] Blood 08/16/2021 12:3 5 PM CDT 08/16/2021 12:35 PM CDT us Notinfile Unknown LAB POCT ORDERABLES - DEVICE F inal Result MARY JANE [address] [facility] Department [place] [address] * CT Abdomen Pelvis WO Contrast (08/16/2021 12:20 PM CDT) Anatomical Region Laterality Modality Body N/A Computed Tomogra phy 08/16/2021 12:3 3 PM CDT Narrative 08/16/2021 12:47 PM CDT EXAM DESCRIPTION: ?? CT ABDOMEN PELVIS WO CONTRAST REASON FOR STUDY: ?? Flank pain, kidney stone suspected, versus pyelo ?? Pt was admitted to hospital on August 01 w/kidney infection. ??Was on IV antibiotics and discharged. ??Pt w/right flank pain today and states has had incontinence and urinary frequency. ??Onset yesterday. ??Pt concerned that infection is back. ??C/o nausea, ?? no vomiting. ??Feels weak. ?? TECHNIQUE: CT scan of the abdomen and pelvis performed without intravenous and ??without ??oral contrast using helical scanning technique. Reconstructed coronal and sagittal MPR images reviewed. All images stored on PACS. ?? Automated exposure control was used as a dose optimization technique for this examination. COMPARISON: 08/01/2021 FINDINGS: The sensitivity for detection of visceral lesions is diminished without the use of intravenous contrast; pathology may not be appreciable. LOWER CHEST: ?? Clustered pulmonary micro nodules within the medial left base measuring up to 0.5 cm. ??No effusion. ?? Heavy coronary artery calcification. LIVER: ?? No identified cystic or solid masses on noncontrast imaging. GALLBLADDER: ?? Surgically absent. BILE DUCTS: ?? No intrahepatic or extrahepatic ductal dilatation. ?? SPLEEN: ?No focal lesions. PANCREAS: ?? No identified cystic or solid masses. No significant calcifications. No adjacent inflammation or peripancreatic fluid collections. Pancreatic duct not dilated. ADRENALS: ?? Unremarkable. KIDNEYS/URINARY TRACT: ?? 1.3 cm cyst within the upper midpole of the right kidney. ??Minimal fullness of the right renal pelvis. ??No obstructing stone or hydronephrosis. ??No focal inflammatory change. ?Bladder is partially decompressed, limiting evaluation. GI: Evaluation the gastrointestinal tract is limited by lack of distention and bowel prep. ?Distal esophagus is unremarkable. ??Stomach and proximal small bowel are unremarkable. ??No small bowel obstruction. ??Scattered diverticular disease without evidence of acute diverticulitis. ??Appendix is normal in caliber without surrounding inflammatory change. ?? PERITONEUM: ?? No ascites or free air. RETROPERITONEUM: ?? No mass or adenopathy. REPRODUCTIVE: ?? No significant abnormality. VASCULATURE: ?? No abdominal aortic aneurysm. MUSCULOSKELETAL: ?? Mild multilevel degenerative disc disease. OTHER: ?? Evidence of prior ventral hernia repair. IMPRESSION: 1. ?? Redemonstration of minimal fullness of the right renal pelvis, similar as compared to prior. 2. ?? No focal inflammation. 3. ?? Colonic diverticulosis. 4. ?? Redemonstration of clustered pulmonary micro nodules within the medial left base. 5. ?? Please see additional findings as above. THIS IS AN ELECTRONICALLY VERIFIED FINAL REPORT 08/16/2021 12:47 PM - Electronically signed by ??Cleo Garza M.D. BG: D: ??08/16/2021 12:47 PM T: ??08/16/2021 12:47 PM Report ID: [id number] Reading Location: ??[id number] Procedure Note Cleo Garza MD - 08/16/2021 EXAM DESCRIPTION: CT ABDOMEN PELVIS WO CONTRAST REASON FOR STUDY: Flank pain, kidney stone suspected, versus pyelo Pt was admitted to hospital on August 01 w/kidney infection. Was on IV antibiotics and discharged. Pt w/right flank pain today and states hashad incontinence and urinary frequency. Onset yesterday. Pt concerned that infection is back. C/o nausea, no vomiting. Feels weak. TECHNIQUE: CT scan of the abdomen and pelvis performed without intravenousand without oral contrast using helical scanning technique. Reconstructed coronal and sagittal MPR images reviewed. All images stored on PACS. Automated exposure control was used as a dose optimization technique forthis examination. COMPARISON: 08/01/2021 FINDINGS: The sensitivity for detection of visceral lesions is diminished without the use of intravenous contrast; pathology may not beappreciable. LOWER CHEST: Clustered pulmonary micro nodules within the medial leftbase measuring up to 0.5 cm. No effusion. Heavy coronary arterycalcification. LIVER: No identified cystic or solid masses on noncontrast imaging. GALLBLADDER: Surgically absent. BILE DUCTS: No intrahepatic or extrahepatic ductal dilatation. SPLEEN: No focal lesions. PANCREAS: No identified cystic or solid masses. No significant calcifications. No adjacent inflammation or peripancreatic fluidcollections. Pancreatic duct not dilated. ADRENALS: Unremarkable. KIDNEYS/URINARY TRACT: 1.3 cm cyst within the upper midpole of the right kidney. Minimal fullness of the right renal pelvis. No obstructing stoneor hydronephrosis. No focal inflammatory change. Bladder is partially decompressed, limiting evaluation. GI: Evaluation the gastrointestinal tract is limited by lack of distentionand bowel prep. Distal esophagus is unremarkable. Stomach and proximalsmall bowel are unremarkable. No small bowel obstruction. Scattereddiverticular disease without evidence of acute diverticulitis. Appendix is normal in caliber without surrounding inflammatory change. PERITONEUM: No ascites or free air. RETROPERITONEUM: No mass or adenopathy. REPRODUCTIVE: No significant abnormality. VASCULATURE: No abdominal aortic aneurysm. MUSCULOSKELETAL: Mild multilevel degenerative disc disease. OTHER: Evidence of prior ventral hernia repair. IMPRESSION: 1. Redemonstration of minimal fullness of the right renal pelvis,similar as compared to prior. 2. No focal inflammation. 3. Colonic diverticulosis. 4. Redemonstration of clustered pulmonary micro nodules within themedial left base. 5. Please see additional findings as above. THIS IS AN ELECTRONICALLY VERIFIED FINAL REPORT 08/16/2021 12:47 PM - Electronically signed by Cleo Garza M.D. BG: Report ID: [id number] Reading Location: [place] [address] PROCEDURES Final Resul t * eGFR (08/16/2021 10:47 AM CDT) eGFR 100 mL/min/1. 73 m2 [...] was last reviewed 2021. Testing performed by: [facility], [address] [place] [address]., [address] Blood 08/16/2021 10:4 7 AM CDT 08/16/2021 10:53 AM CDT Abiola MCKEON LAB BLOOD ORDERABLES Final Re sult MARY JANE PHAM [address] [facility] Department [place] [address] * (ABNORMAL) Urinalysis, microscopic only (08/16/2021 10:47 AM CDT) Pathologist [facility] WBC, ur 0-5 0 - 5 /HPF MARY JANE Comment:Testing performed by : [address] [address] RBC, ur 0-2 0 - 2 /HPF MARY JANE Comment:Testing performed by : [address] [address] Epithelial cells, squamous, ur 6-10(A) 0 - 5 /HPF MARY JANE Comment: Suggestive of contamination. Consider recollection by clean catch. Testing performed by: [address] [address] Mucous, ur Present(A) MARY JANE Comment:Testing performed by : [address] [address] Hyaline casts, ur 1-5 0 - 10 /LPF MARY JANE Comment:Testing performed by : [address] [address] Culture Reflex Comment Reflex conditions for urine culture (WBC >10) not met. MARY JANE Comment:Testing performed by : [address] [address] Urine 08/16/2021 10:4 7 AM CDT 08/16/2021 10:53 AM CDT us Abiola MCKEON LAB URINE ORDERABLES Final Re sult MARY JANE [address] [facility] Department of Laboratories [place], [place] [id number] * Differential, auto (08/16/2021 10:47 AM CDT) Pathologist [facility] Neutrophil abs 6.2 1.7 - 6.5 K/cumm MARY JANE Comment:Testing performed by : [address] [address] Imm gran abs 0.1 0.0 - 0.1 K/cumm MARY JANE Comment:Testing performed by : [address] [address] Lymphocyte abs 2.5 0.8 - 3.3 K/cumm MARY JANE Comment:Testing performed by : [address] [address] Monocyte abs 0.7 0.2 - 0.8 K/cumm [facility] Comment:Testing performed by : [address] [address] Eosinophil abs 0.3 0.0 - 0.5 K/cumm [facility] Comment:Testing performed by : [address], [place]., [address] Basophil abs 0.0 0.0 - 0.1 K/cumm [facility] Comment:Testing performed by : [address] [address] Neutrophil pct 63.6 % [facility] Comment: Interpretive Data Percent cell count reference ranges are not reported, since discordance with absolute values may lead to misinterpretation of CBC data. Current Interpretive Data was last revised on 2017. Testing performed by: [address] [address] Imm gran pct 0.6 % [facility] Comment: Interpretive Data Percent cell count reference ranges are not reported, since discordance with absolute values may lead to misinterpretation of CBC data. Current Interpretive Data was last revised on 2017. Testing performed by: [address] [address] Lymphocyte pct 25.7 % [facility] Comment: Interpretive Data Percent cell count reference ranges are not reported, since discordance with absolute values may lead to misinterpretation of CBC data. Current Interpretive Data was last revised on 2017. Testing performed by: [address] [address] Monocyte pct 7.2 % [facility] Comment: Interpretive Data Percent cell count reference ranges are not reported, since discordance with absolute values may lead to misinterpretation of CBC data. Current Interpretive Data was last revised on 2017. Testing performed by: [address] [address] Eosinophil pct 2.6 % [facility] Comment: Interpretive Data Percent cell count reference ranges are not reported, since discordance with absolute values may lead to misinterpretation of CBC data. Current Interpretive Data was last revised on 2017. Testing performed by: [address] [address] Basophil pct 0.3 % MARY JANE Comment: Interpretive Data Percent cell count reference ranges are not reported, since discordance with absolute values may lead to misinterpretation of CBC data. Current Interpretive Data was last revised on 2017. Testing performed by: [address] [address] Blood 08/16/2021 10:4 7 AM CDT 08/16/2021 10:53 AM CDT us Abiola MCKEON LAB BLOOD ORDERABLES Final Re sult MARY JANE [address] [facility] Department [place] [address] * (ABNORMAL) Urinalysis reflex to microscopic and culture Urine (08/16/2021 10:47 AM CDT) Color, ur Yellow Yellow MARY JANE Comment:Testing performed by : [address] [address] Clarity, ur Clear Clear MARY JANE Comment:Testing performed by : [address] [address] Specific gravity, ur 1.025 1.003 - 1.030 MARY JANE Comment:Testing performed by : [address] [address] pH, urine 5.0 MARY JANE Comment:Testing performed by : [address] [address] Protein, ur ql Negative Negative MARY JANE Comment:Testing performed by : [address] [address] Glucose, ur ql 1+(A) Negative MARY JANE Comment:Testing performed by : [address] [address] Ketones, ur Negative Negative MARY JANE Comment:Testing performed by : [address] [address] Bilirubin, ur Negative Negative MARY JANE Comment:Testing performed by : [facility], [address] [place] [address]., [address] Blood, ur 2+(A) Negative MARY JANE PHAM Comment:Testing performed by : [address] [address] Urobilinogen, ur <2.0 <2.0 mg/dL MARY JANE PHAM Comment:Testing performed by : [address] [address] Nitrite, ur Negative Negative MARY JANE Comment:Testing performed by : [address], [place]., [address] Leukocyte esterase, ur Negative Negative MARY JANE Comment:Testing performed by : [address] [address] UA reflex comment Reflex to microscopic UA will be performed. MARY JANE PHAM Comment:Testing performed by : [address] [address] Urine 08/16/2021 10:4 7 AM CDT 08/16/2021 10:53 AM CDT Narrative MARY JANE PHAM - 08/16/2021 10:58 AM CDT ?? Urine pH is affected by diet, medications, systemic acid-base disturbances, and renal tubular function. ??pH may affect urinary stone formation. ??For example, urine pH below 6.0 may help reduce the tendency for calcium phosphate stones and pH greater than 6.0 may reduce the tendency for uric acid stone formation. Source: [facility] 1-4 All. Last revised 05-04-2017 Abiola MCKEON LAB MICROBIOLOGY - GENERAL OR DERABLES Final Result MARY JANE [address] [facility] Department [place] [address] * Lipase (08/16/2021 10:47 AM CDT) Lipase 25 10 - 99 Units/L MARY JANE PHAM Comment:Testing performed by : [address], [place]., [address] Blood (Blood, Venous) 08/16/2021 10:47 AM CDT 08/16/2021 10:53 AM CDT us Abiola MCKEON LAB BLOOD ORDERABLES Final Re sult MARY JANE [address] [facility] [place] [address] * (ABNORMAL) Comprehensive metabolic panel (08/16/2021 10:47 AM CDT) Sodium 137 135 - 145 mmol/L MARY JANE Comment:Testing performed by : [address] [address] Potassium, pl 4.7 3.3 - 4.9 mmol/L MARY JANE Comment:Testing performed by : [address] [address] Chloride 101 97 - 110 mmol/L MARY JANE Comment:Testing performed by : [address] [address] CO2 28 22 - 32 mmol/L MARY JANE Comment:Testing performed by : [address] [address] Anion gap 8 2 - 15 mmol/L MARY JANE Comment:Testing performed by : [address] [address] BUN 15 8 - 25 mg/dL MARY JANE Comment:Testing performed by : [address] [address] Creatinine 0.60 0.60 - 1.10 mg/dL MARY JANE Comment:Testing performed by : [address] [address] Glucose 261(H) 70 - 199 mg/dL MARY JANE Comment: [...] last revised 2017. Testing performed by: [address] [address] Calcium 9.7 8.5 - 10.3 mg/dL MARY JANE Comment:Testing performed by : [address] [address] Bilirubin, total 0.5 0.1 - 1.2 mg/dL MARY JANE Comment:Testing performed by : [address] [address] Protein, pl 8.2 6.5 - 8.5 g/dL MARY JANE Comment:Testing performed by : [address] [address] Albumin 3.9 3.5 - 5.0 g/dL MARY JANE Comment:Testing performed by : [address] [address] Alk phos 86 40 - 130 Units/L MARY JANE Comment:Testing performed by : [address] [address] ALT 20 7 - 45 Units/L MARY JANE Comment:Testing performed by : [address] [address] AST 17 10 - 45 Units/L MARY JANE Comment:Testing performed by : [address] [address] Blood (Blood, Venous) 08/16/2021 10:47 AM CDT 08/16/2021 10:53 AM CDT us Abiola MCKEON LAB BLOOD ORDERABLES Final Re sult MARY JANE [address] [facility] [place] [address] * (ABNORMAL) CBC with auto differential (08/16/2021 10:47 AM CDT) Pathologist [facility] WBC 9.8 3.8 - 9.9 K/cumm MARY JANE Comment:Testing performed by : [address] [address] Hgb 14.0 11.9 - 15.5 g/dL MARY JANE Comment:Testing performed by : [address], [address] Hct 44.9 35.6 - 45.5 % MARY JANE Comment:Testing performed by : [address] [address] Plt 304 150 - 400 K/cumm MARY JANE Comment:Testing performed by : [address] [address] MPV 9.7 9.1 - 12.3 fL MARY JANE Comment:Testing performed by : [address], [address] RBC 4.85 3.90 - 5.20 M/cumm MARY JANE Comment:Testing performed by : [address], [address] MCV 92.6 81.3 - 96.4 fL MARY JANE Comment:Testing performed by : [address], [address] MCH 28.9 27.1 - 33.3 pg MARY JANE Comment:Testing performed by : [address], [address] MCHC 31.2(L) 32.3 - 35.7 g/dL MARY JANE Comment:Testing performed by : [address], [address] RDW CV 14.0 11.1 - 14.9 % MARY JANE Comment:Testing performed by : [address], [address] RDW SD 47.5 35.7 - 48.1 fL MARY JANE Comment:Testing performed by : [address], [address] NRBC abs 0.00 0.00 - 0.01 K/cumm MARY JANE Comment:Testing performed by : [address] [address] Blood (Blood, Venous) 08/16/2021 10:47 AM CDT 08/16/2021 10:53 AM CDT us Abiola MCKEON LAB BLOOD ORDERABLES Final Re sult MARY JANE [address] [facility] [place] [address] documented in this encounter Visit Diagnoses Diagnosis Acute right flank pain- Primary Incontinent of urine Unspecified urinary incontinence Nausea Nausea alone Lower abdominal pain Abdominal pain, other specified site documented in this encounter Administered Medications Inactive Administered Medications - up to 3 most recent administrations Medication Order MAR Action Action Date Dose Rate Site acetaminophen (TYLENOL) tablet 975 mg 975 mg (rounded from 1,000 mg), oral, Every 6 hours PRN, Flank Pain, Starting on Mon08/16/21 at 1032, For 2 doses, Do not administer if patient has taken greater than 3g of acetaminophen in the past 24 hours. Do not administer if patient has history of liver disease., Indications: Flank PainIndications:Flank Pain Given 08/16/2021 11:12 AM CDT 975 mg morphine injection 4 mg 4 mg, intravenous, Administer over 4 Minutes, Once, On Mon08/16/21 at 1006, For 1 dose Given 08/16/2021 11:10 AM CDT 4 mg ondansetron (ZOFRAN) injection 4 mg 4 mg, intravenous, Administer over 2 Minutes, Once as needed, nausea, vomiting, If patient unable to tolerate PO, Starting on Mon08/16/21 at 1032, For 1 dose, Do not administer if patient had 8mg administered within 6 hours of patient presenting to ED Do not administer if patient was formally diagnosed with prolonged QT syndrome Given 08/16/2021 11:09 AM CDT 4 mg sodium chloride 0.9% bolus 1,000 mL 1,000 mL, intravenous, at 1,000 mL/hr, Administer over 1 Hours, Once, On Mon08/16/21 at 1127, For 1 dose New Bag 08/16/2021 11:37 AM CDT 1,000 mL 1000 mL/hr documented in this encounter Discontinued Medications Medication Sig Discontinue Reason Start Date End Da te ondansetron ODT (ZOFRAN-ODT) 4 mg disintegrating tablet 07/19/2021 08/16/2021 documented as of this encounter Active and Recently Administered Medications Times are shown in CDT. Scheduled Medication Order 08/14/2021 08/15/2021 08/16/2021 morphine injection 4 mg (COMPLETED) 4 mg, intravenous, Administer over 4 Minutes, Once, On Mon08/16/21 at 1006, For 1 dose 1110 (Given - Provid er: Jennifer Carbajal RN) sodium chloride 0.9% bolus 1,000 mL (COMPLETED) 1,000 mL, intravenous, at 1,000 mL/hr, Administer over 1 Hours, Once, On Mon08/16/21 at 1127, For 1 dose 1137 (New Bag - Prov ider: Donna Alexandra RN)1420 (Stopped - Provider: Donna Alexandra RN) PRN Medication Order 08/14/2021 08/15/2021 08/16/2021 acetaminophen (TYLENOL) tablet 975 mg 975 mg (rounded from 1,000 mg), oral, Every 6 hours PRN, Flank Pain, Starting on Mon08/16/21 at 1032, For 2 doses, Do not administer if patient has taken greater than 3g of acetaminophen in the past 24 hours. Do not administer if patient has history of liver disease., Indications: Flank Pain 1112 (Given - Provid er: Jennifer Carbajal RN) ondansetron (ZOFRAN) injection 4 mg (COMPLETED) 4 mg, intravenous, Administer over 2 Minutes, Once as needed, nausea, vomiting, If patient unable to tolerate PO, Starting on Mon08/16/21 at 1032, For 1 dose, Do not administer if patient had 8mg administered within 6 hours of patient presenting to ED Do not administer if patient was formally diagnosed with prolonged QT syndrome 1109 (Given - Provid er: Jennifer Carbajal RN) documented in this encounter Orders IV Count Last Ordered Date First Orde red Date SALINE LOCK IV 1 08/16/2021 documented in this encounter Care Teams Solid Surface Fabricator Relationship Specialty Start Date End Date Justen Gale MD [address] [address] PCP - General 10/09/17 Liu Jerez MD Consulting Physician Gastroenterology 07/28/17 [place] [address] [facility] [address] [place] [address] Consulting Physician Pulmonary Disease 08/03/17 Khris Arthur MD [address] [facility] [address] [place] [address] Medical Oncologist/Doper Operator Medical Oncology 10/23/17 [place] [address] [facility] [address] [place] [address] Surgeon Orthopedic Surgery 10/23/17 [place] [address] [facility] [address] [place] [address] Consulting Physician Pain Management 10/23/17 [place] [address] [facility] [address] [place] [address] Referring Physician General Surgery 01/26/18 [place] [address] [facility] [address] [place] [address] Consulting Physician Neurology 01/26/18 documented as of this encounter
--- OUTSIDE RECORDS SUMMARY | 2024-04-26 04:22 | XMS_ITS | Encounter Summary ---
Author Organization [facility] Address [address] [place] [address] Phone Care Team Providers Care Machine Shorthand Teacher Name Role Phone Liu Jerez MD Unavailable [phone] Albert Corbin MD Unavailable [phone] Justen Gale MD Primary Care Provider Khris Arthur MD Unavailable [phone] Ko Melendez MD Unavailable John Paul Moyer MD Unavailable Annel Rod MD Unavailable Anali MARSHALL MD, Carlos M. 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 Gender Identity Not on file Sexual Orientation [...] daily 30 tablet 1 08/16/2021 2 documented in this encounter Plan of [...] Discontinue Reason Start Date End Da te anastrozole (ARIMIDEX) 1 mg tablet anastrozole 1 mg tablet 08/16/2021 rivaroxaban (Xarelto) 20 mg tabletIndications:Other pulmonary embolism [...] (20 mg total) by mouth daily Reorder 03/22/2021 08/16/2021 documented as of this encounter Care Teams Machine Shorthand Teacher Relationship Specialty Start Date End Date Justen Gale MD [address] [address] PCP - General 10/09/17 Liu Jerez MD Consulting Physician Gastroenterology 07/28/17 [place] [address] [facility] [address] [place] [address] Consulting Physician Pulmonary Disease 08/03/17 Khris Arthur MD 49[address] [facility] [address] [place] [address] Medical Oncologist/Bee Robber Medical Oncology 10/23/17 [place] [address] [facility] [address] [place] [address] Surgeon Orthopedic Surgery 10/23/17 [place] [address] [facility] [address] [place] [address] Consulting Physician Pain Management 10/23/17 [place] [address] [facility] [address] [place] [address] Referring Physician General Surgery 01/26/18 [place] [address] [facility] [address] [place] [address] Consulting Physician Neurology 01/26/18 documented as of this encounter
--- OUTSIDE RECORDS SUMMARY | 2024-04-26 04:22 | XMS_ITS | Encounter Summary ---
Author Organization [facility] Address [address] [place] [address] Phone Care Team Providers Care Machine Cell Tuber Name Role Phone Liu Jerez MD Unavailable Albert Corbin MD Unavailable Justen Gale MD Primary Care Provider Khris Arthur MD Unavailable [phone] Ko Melendez MD Unavailable John Paul Moyer MD Unavailable Annel Rod MD Unavailable Anali MARSHALL MD, Carlos M. 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 I called the ER and spoke Denita LAWLER and let her know the patient is very SOB and it was a sudden onset. Patient is sitting out in her car d/t being too scared of all the people in the ER. I let the nurse know and she stated they would go out and get her. Jo LAWLER 1537 documented in this encounter Plan of Treatment Not on file documented as of this encounter Visit Diagnoses Not on filedocumented in this encounter Care Teams Machine Cell Tuber Relationship Specialty Start Date End Date Justen Gale MD 2 [facility] [address] [place] [address] PCP - General 10/09/17 Liu Jerez MD Consulting Physician Gastroenterology 07/28/17 [place] [address] [facility] [address] [place] [address] Consulting Physician Pulmonary Disease 08/03/17 Khris Arthur MD 49[address] [facility] [address] [place] [address] Medical Oncologist/Machine Try Out Setter Medical Oncology 10/23/17 [place] [address] [address] [facility] [address] [place] [address] Surgeon Orthopedic Surgery 10/23/17 [place] [address] [address] Consulting Physician Pain Management 10/23/17 [place] [address] [facility] [address] [place] [address] Referring Physician General Surgery 01/26/18 [place] [address] [facility] [address] [place] [address] Consulting Physician Neurology 01/26/18 documented as of this encounter
--- OUTSIDE RECORDS SUMMARY | 2024-04-26 04:22 | XMS_ITS | Encounter Summary ---
Author Organization [facility] Address [address] [place] [address] Phone Care Team Providers Care Supervisor Cook Room Name Role Phone Liu Jerez MD Unavailable [phone] Albert Corbin MD Unavailable [phone] Justen Gale MD Primary Care Provider [phone] Khris Arthur MD Unavailable [phone] Ko Melendez MD Unavailable John Paul Moyer [...] APPT ONC LAB ONLY Khris Arthur MD [address] [facility] [address] [place] [address] Phone: tel: fax: Khris Arthur MD [address] [facility] [address] [place] [address] Phone: tel: fax: Referral ID Status Reason Start Date Expiration Date V isits Requested Visits Authorized [id number] Closed Specialty Services Required 07/23/2020 04/23/2024 99 99 Encounter Details Date Type Department Care Team (Late st Contact Info) Description 09/07/2021 1:[address] 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 Gender Identity Not on file Sexual Orientation Not on file documented as of this encounter Plan of Treatment Not on file documented as of this encounter Visit Diagnoses Not on filedocumented in this encounter Care Teams Supervisor Cook Room Relationship Specialty Start Date End Date Justen Gale MD 2 [place] [address] PCP - General 10/09/17 Liu Jerez MD Consulting Physician Gastroenterology 07/28/17 [place] [address] [facility] [address] [place] [address] Consulting Physician Pulmonary Disease 08/03/17 Khris Arthur MD 4921 [facility] [address] [place] [address] Medical Oncologist/Web Production Designer Medical Oncology 10/23/17 [place] [address] [facility] [address] [place] [address] Surgeon Orthopedic Surgery 10/23/17 [place] [address] [address] [facility] [address] [place] [address] Consulting Physician Pain Management 10/23/17 [place] [address] [facility] [address] [place] [address] Referring Physician General Surgery 01/26/18 [place] [address] [address] [facility] [address] [place] [address] Consulting Physician Neurology 01/26/18 documented as of this encounter
--- OUTSIDE RECORDS SUMMARY | 2024-04-26 04:22 | XMS_ITS | Encounter Summary ---
Author Organization [facility] Address [address] [place] [address] Phone Care Team Providers Care Lens Fabricating Machine Tender Name Role Phone Liu Jerez MD Unavailable Albert Corbin MD Unavailable Justen Gale MD Primary Care Provider Khris Arthur MD Unavailable [phone] Ko Melendez MD Unavailable John Paul Moyer MD Unavailable Annel Rod MD Unavailable Anali MARSHALL MD, Carlos M. 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 Procedures [place] ZOLEDRONIC ACID 1MG Khris Arthur MD [address] [facility] [address] [place] [address] Phone: tel: fax: [facility] Oncology [address] [place] [address] 7th [place] [address] Phone: tel: Referral ID Status Reason Start Date Expiration Date Visits Re quested Visits Authorized [id number] Closed 10/17/2019 04/23/2022 1 6 Encounter Details Date Type Department Care Team (Late st Contact Info) Description 01/05/2021 4:00 PM CDT Infusion [facility] Oncology [address] [place] [address] 7th [place] [address] Malignant neoplasm of upper-inner quadrant of left breast in female, estrogen receptor positive (CMS/HCC) (HCC) (Primary Dx); 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; Malignant neoplasm of upper-inner quadrant of left [...] on file 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 Gender Identity Not on file Sexual Orientation Not on file documented as of this encounter Last Filed Vital Signs Vital Sign Reading Time Taken Comments Blood Pressure 106/72 01/05/2021 4:09 PM CDT Pulse 80 01/05/2021 4:09 PM CDT Temperature 37 ??C (98.6 ??F) 01/05/2021 4:09 PM CDT Respiratory Rate 19 01/05/2021 4:09 PM CDT Oxygen Saturation 98% 01/05/2021 4:09 PM CDT Inhaled Oxygen Concentration - - Weight 130.8 kg (288 lb 6.4 oz) 021 4:09 PM CDT Height - - Body Mass Index 54.49 10/02/2020 12:38 PM CDT documented in this encounter Nursing Notes * Melodie Decker RN - 01/05/2021 4:00 PM CDT Oncology Nursing Note [facility] ONCOLOGY Karly Marques is a 65 y.o. female who presents for treatment 1 zometa. Pre-treatment Nursing Assessment Nursing Assessment Appetite:: Good Diarrhea:: No Constipation:: No Existing Patients: Any falls since your last visit? : No New Patients: Any falls since your last visit? : N/A Fatigue:: None Mouth Sores:: No Nausea/Vomiting:: No Pain:: Yes (chronic back pain) Peripheral Neuropathy: : No Pt states has potential to be ? : N/A Shortness of Breath?: No Skin Condition/Temp: Warm, Dry Oral Mucosa Grade: Normal (0) Abdomen: Soft Swelling:: No Additional Notes: discharge teaching sheet, chemocare, and schedule given. BP: 106/72 Temp: 37 ??C (98.6 ??F) Temp src: Temporal Pulse: 80 Resp: 19 SpO2: 98 % Weight: 130.8 kg (288 lb 6.4 oz) Treatment Patient: met treatment parameters Pre blood return: Brisk Karly Marques tolerated treatment well. Additional Notes: Post blood return: Brisk IV access post infusion: NS Patient Education Treatment Education: Information/teaching given to patient including Symptom management Response: Verbalizes understanding Discharge Plan Discharge instructions given to patient. Future appointments given and reviewed with treatment plan. 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) use 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 inhibitors documented in this encounter Administered Medications Inactive Administered Medications - up to 3 most recent administrations Medication Order MAR Action Action Date Dose Rate Site sodium chloride 0.9% infusion 20 mL/hr, intravenous, Continuous, Starting on Mon01/05/21 at 1730, For 8 hours, Normal Saline 250ml @ TKO during Treatment.Indications:shelter (current) use 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 inhibitors,Malignant neoplasm of upper-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, unspecified estrogen receptor status (HCC) New Bag 01/05/2021 5:00 PM CDT 20 mL/hr 20 mL/hr zoledronic acid 4 mg in sodium chloride 0.9% 100 mL IVPB 4 mg, intravenous, at 315 mL/hr, Administer over 20 Minutes, Once, On Mon01/05/21 at 1730, For 1 dose, If creatinine clearance is greater than 60 mL/min administer 4 mg dose. If creatinine clearance is between 50 and 60 mL/min administer 3.5 mg dose. If creatinine clearance is between 40 and 49 mL/min administer 3.3 mg dose. If creatinine clearance is between 30-39 ml/min administer 3 mg dose. If creatinine clearance is less than 30 ml/min Hold Dose of Zometa and notify MD/NILSON If Ca++ < 7.0 , Notify MDIndications:shelter (current) use 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 inhibitors,Malignant neoplasm of upper-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, unspecified estrogen receptor status (HCC) New Bag 01/05/2021 5:14 PM CDT 4 mg 315 mL/hr documented in this encounter Orders Nursing Count Last Ordered Date First Orde red Date OK TO TREAT COSIGN ORDER 1 01/05/2021 Appointment Requests Count Last Ordered Date Fi rst Ordered Date INFUSION APPT REQUEST 60 MIN 1 01/05/2021 documented in this encounter Care Teams Lens Fabricating Machine Tender Relationship Specialty Start Date End Date Justen Gale MD 2 [facility] [address] [place] [address] PCP - General 10/09/17 Liu Jerez MD Consulting Physician Gastroenterology 07/28/17 [place] [address] [facility] [address] [place] [address] Consulting Physician Pulmonary Disease 08/03/17 Khris Arthur MD [address] [place] [address] [address] [place], [place] [id number] Medical Oncologist/Quality Assurance Assistant Medical Oncology 10/23/17 [place] [address] [facility] [address] [place] [address] Surgeon Orthopedic Surgery 10/23/17 [place] [address] [address] Consulting Physician Pain Management 10/23/17 [place] [address] [address] Referring Physician General Surgery 01/26/18 [place] [address] [address] [facility] [address] [place] [address] Consulting Physician Neurology 01/26/18 documented as of this encounter
--- OUTSIDE RECORDS SUMMARY | 2024-04-26 04:22 | XMS_ITS | Encounter Summary ---
Author Organization [facility] Address [address] [place] [address] Phone Care Team Providers Care Member Of Parliament Name Role Phone Liu Jerez MD Unavailable Albert Corbin MD Unavailable Justen Gale MD Primary Care Provider Khris Arthur MD Unavailable [phone] Ko Melendez MD Unavailable John Paul Moyer MD Unavailable Annel Rod MD Unavailable Anali MARSHALL MD, Carlos M. Unavailable Encounter Details Date Type Department Care Team (Late st Contact Info) Description 11/13/2020 Documentation [facility] Oncology [address] 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 She called the office because she has having severe pain in her legs. She has PRN pain medication that does not help and she has tried alternative management strategies. I advised her to go into the ER for pain management. She agreed and will go to the local ER. documented in this encounter Plan of Treatment Not on file documented as of this encounter Visit Diagnoses Not on filedocumented in this encounter Care Teams Member Of Parliament Relationship Specialty Start Date End Date Justen Gale MD [address] [address] PCP - General 10/09/17 Liu Jerez MD Consulting Physician Gastroenterology 07/28/17 [place] [address] [facility] [address] [place] [address] Consulting Physician Pulmonary Disease 08/03/17 Khris Arthur MD 4921 [facility] [address] [place] [address] Medical Oncologist/Optical Manager Medical Oncology 10/23/17 [place] [address] [facility] [address] [place] [address] Surgeon Orthopedic Surgery 10/23/17 [place] [address] [address] Consulting Physician Pain Management 10/23/17 [place] [address] [facility] [address] [place] [address] Referring Physician General Surgery 01/26/18 [place] [address] [facility] [address] [place] [address] Consulting Physician Neurology 01/26/18 documented as of this encounter
--- OUTSIDE RECORDS SUMMARY | 2024-04-26 04:22 | XMS_ITS | Encounter Summary ---
Author Organization [facility] Address [address] [place] [address] Phone Care Team Providers Care Warehouse Assembly Worker Name Role Phone Lui Jerez MD Unavailable [phone] Albert Corbin MD Unavailable Justen Gale MD Primary Care Provider Khrsi Arthur MD Unavailable [phone] Ko Melendez MD Unavailable John Paul Moyer MD Unavailable Annel Rod MD Unavailable Anali MARSHALL MD, Carlos M. 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 Per Dr. Camarillo, ok to hold but should bridge with lovenox. Pt agreeable to this. Prescription for lovenox sentto pharmacy. She knows to hold the blood thinner for 5 days prior to surg, do lovenox 40mg BID for 4 days, and then hold all blood thinners for 1 day. She will contact her surgeon in regards to when she should restart. documented in this encounter Plan of Treatment Not on file documented as of this encounter Visit Diagnoses Not on filedocumented in this encounter Care Teams Warehouse Assembly Worker Relationship Specialty Start Date End Date Justen Gale MD [address] [address] PCP - General 10/09/17 Liu Jerez MD Consulting Physician Gastroenterology 07/28/17 [place] [address] [facility] [address] [place] [address] Consulting Physician Pulmonary Disease 08/03/17 Khris Arthur MD [address] [facility] [address] [place] [address] Medical Oncologist/Clerical Assigner Medical Oncology 10/23/17 [place] [address] [facility] [address] [place] [address] Surgeon Orthopedic Surgery 10/23/17 [place] [address] [address] Consulting Physician Pain Management 10/23/17 [place] [address] [facility] [address] [place] [address] Referring Physician General Surgery 01/26/18 [place] [address] [facility] [address] [place] [address] Consulting Physician Neurology 01/26/18 documented as of this encounter
--- OUTSIDE RECORDS SUMMARY | 2024-04-26 04:22 | XMS_ITS | Encounter Summary ---
Author Organization [facility] Healthcare Address [address] [place] [address] Care Team Providers Care Applications Scientist Name Role Phone Liu Jerez MD Unavailable Albert Corbin MD Unavailable Justen Gale MD Primary Care Provider [phone] Khris Arthur MD Unavailable [phone] Ko Melendez MD Unavailable [phone] John Paul Moyer MD Unavailable Annel Rod MD Unavailable Anali MARSHALL MD, Carlos M. Unavailable Reason for Visit * Reason Comments Shortness of Breath * Auth/Cert Specialty Diagnoses / Procedures Referred By Contac t Referred To Contact Diagnoses History of DVT (deep vein thrombosis) Chest pain, unspecified type Hypertension, unspecified type Type 2 diabetes mellitus without complication, unspecified whether long winder tender insulin use (HCC) Nausea and vomiting, unspecified vomiting type Procedures ADM Referral ID Status Reason Start Date Expiration Date Visits Re quested Visits Authorized [id number] 1 1 Encounter Details Date Type Department Care Team (Latest Contact Info) Description 09/11/2021 2:57 PM CDT - 09/14/2021 4:42 PM CDT Hospital Encounter [facility] 5 Med Surg [address] [place] [address] MargaretKirit callawayDO [address] [place] [address] Drew Calero MD [facility] [place] [address] Sravan Patel MD [address] [place] [address] [place] [address] 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 [employer] Gender Identity Not on file Sexual Orientation Not on file documented as of this encounter Last Filed Vital Signs Vital Sign Reading Time Taken Comments Blood Pressure 123/79 09/14/2021 12:10 PM CDT Pulse 85 09/14/2021 12:10 PM CDT Temperature 36.7 ??C (98.1 ??F) 09/14/2021 1 2:10 PM CDT Respiratory Rate 18 09/14/2021 12:1 0 PM CDT Oxygen Saturation 97% 09/14/2021 12: 10 PM CDT Inhaled Oxygen Concentration - - Weight 128.2 kg (282 lb 11.2 oz) 09/12/2021 7:45 AM CDT Height 154.9 cm (5' 1 ) 09/12/2021 7:45 AM CDT Body Mass Index 53.42 09/12/2021 7:45 AM CDT documented in this encounter Discharge Summaries * Antonella Christianson MD - 09/14/2021 2:02 PM CDT Inpatient Discharge Summary BRIEF OVERVIEW Admitting Provider: Antonella Christianson MD Discharge Provider: Antonella Christianson MD Primary Care Physician at Discharge: Justen Gale MD [phone] Admission Date: 09/11/2021 Discharge Date: 09/14/2021 Primary Discharge Diagnosis: Chest pain Secondary Discharge Diagnosis: Principal Problem: Chest pain Resolved Problems: No resolved hospital problems. Hypertension Insulin-dependent diabetes mellitus History of breast cancer GERD Restless leg syndrome DETAILS OF HOSPITAL STAY Presenting Problem/History of Present Illness: Chest pain Hospital Course: Patient was admitted to the hospital secondary to chest pain. Patient was admitted to telemetry serial troponins and EKGs was done. Post come back within normal. Cardiology service was consulted and patient was scheduled for stress test . Her stress test result came within normal limits. Patient had an echocardiogram which showed ejection fraction 60% with normal left ventricular systolic function and normal right ventricular systolic function. Aortic valve is sclerotic but not stenotic. [id number] mitral valve annular calcification but no stenosis. Grade 1 diastolic dysfunction. Patient was started on Protonix 40 mg p.o. b.i.d. for GERD. Cardiology did clear the patient to go home after the stress test result Patient is stable ,patient was examined and hospital course was discussed with the patient. Discharge medicines reviewed and updated. Follow up care was discussed with the patient. All patient's questions were answered .Patient is going home and to follow with PCP and consultants as schedule Active Issues Requiring Follow-up: Test Results Pending at Discharge: Operative Procedures Performed: Other Procedures: Stress test was normal Echocardiogram as above Pertinent Test Results: @RESULTRCNT(24H])@ CT Abdomen Pelvis WO Contrast Result Date: 09/11/2021 Narrative: EXAM DESCRIPTION: CT ABDOMEN PELVIS WO CONTRAST REASON FOR STUDY: Nausea/vomiting, Abdominal pain, acute, nonlocalized Generalized weakness with nausea today TECHNIQUE: CT scan of the abdomen and pelvis performed without intravenous and without oral contrast using helical scanning technique. Reconstructed coronal and sagittal MPR images reviewed. All images stored on PACS. Automated exposure control was used as a dose optimization technique for this examination. COMPARISON: None FINDINGS: The sensitivity for detection of visceral lesions is diminished without the use of intravenouscontrast; pathology may not be appreciable. LOWER CHEST: Please see separately dictated CT chest fro m same day LIVER: No identified cystic or solid masses on noncontrast imaging. GALLBLADDER: Surgically absent. BILE DUCTS: No intrahepatic or extrahepatic ductal dilatation. SPLEEN: No focal lesions.PANCREAS: No identified cystic or solid masses. No significant calcifications. No adjacent inflammation or peripancreatic fluid collections. Pancreatic duct not dilated. ADRENALS: Unremarkable. KIDNEYS/URINARY TRACT: No identified significant cystic or solid masses. No visualized stones. No hydronephrosis or hydroureter. Urinary bladder is unremarkable. GI: Evaluation the gastrointestinal tract is limited by lack of distention and bowel prep. Distal esophagus is unremarkable. Stomach and proxima l small bowel are unremarkable. No small bowel obstruction. Scattered diverticular disease without evidence of acute diverticulitis. PERITONEUM: No ascites or free air. RETROPERITONEUM: No mass or adenopathy. REPRODUCTIVE: No significant abnormality. VASCULATURE: No abdominal aortic aneurysm. MUSCUL OSKELETAL: Redemonstration of marked increased sclerosis about the bilateral sacroiliac joints withquestionable erosive change at the left sacroiliac joint, possibly related to inflammatory arthropathy. Postsurgical changes along the lower anterior abdominal wall. OTHER: No additional significant abnormality. IMPRESSION: No acute process in the abdomen pelvis. Redemonstration of marked sclerosisabout the bilateral sacroiliac joints with questionable erosion at the left sacroiliac joint, possibly related to inflammatory arthropathy. Please see additional findings as above. THIS IS AN ELECTRONICALLY VERIFIED FINAL REPORT 09/11/2021 10:39 PM - Electronically signed by Cleo Garza M.D. BG: Report ID: [id number] Reading Location: [id number] CT Abdomen Pelvis WO Contrast Result Date: 08/16/2021 Narrative: EXAM DESCRIPTION: CT ABDOMEN PELVIS WO CONTRAST REASON FOR STUDY: Flank pain, kidney stone suspected, versus pyelo Pt was admitted to hospital on August 01 w/kidney infection. Was on IV antibiotics and discharged. Pt w/right flank pain today and states has had incontinence and urinary frequency. Onset yesterday. Pt concerned that infection is back. C/o nausea, no vomiting. Feels weak. TECHNIQUE: CT scan of the abdomen and pelvis performed without intravenous and without oral contrast using helical scanning technique. Reconstructed coronal and sagittal MPR images reviewed. All images stored on PACS. Automated exposure control was used as a dose optimization technique for this examination. COMPARISON: 08/01/2021 FINDINGS: The sensitivity for detection of visceral lesions is diminished without the use of intravenous contrast; pathology may not be appreciable. LOWER CHEST: Clustered pulmonary micro nodules within the medial left base measuring up to 0.5 cm. No effusion. Heavycoronary artery calcification. LIVER: No identified cystic or solid masses on noncontrast imaging. GALLBLADDER: Surgically absent. BILE DUCTS: No intrahepatic or extrahepatic ductal dilatation. SPLEEN: No focal lesions. PANCREAS: No identified cystic or solid masses. No significant calcifications. No adjacent inflammation or peripancreatic fluid collections. Pancreatic duct not dilated. ADRENALS:Unremarkable. KIDNEYS/URINARY TRACT: 1.3 cm cyst within the upper midpole of the right kidney. Minimal fullness of the right renal pelvis. No obstructing stone or hydronephrosis. No focal inflammatory change. Bladder is partially decompressed, limiting evaluation. GI: Evaluation the gastrointestinal tract is limited by lack of distention and bowel prep. Distal esophagus is unremarkable. Stomach and proximal small bowel are unremarkable. No small bowel obstruction. Scattered diverticular diseasewithout evidence of acute diverticulitis. Appendix is normal in caliber without surrounding inflammatory change. PERITONEUM: No ascites or free air. RETROPERITONEUM: No mass or adenopathy. REPRODUCTIVE: No significant abnormality. VASCULATURE: No abdominal aortic aneurysm. MUSCULOSKELETAL: Mild multilevel degenerative disc disease. OTHER: Evidence of prior ventral hernia repair. IMPRESSION: 1. Redemonstration of minimal fullness of the right renal pelvis, similar as compared to prior. 2. No focal inflammation. 3. Colonic diverticulosis. 4. Redemonstration of clustered pulmonary micro nodules within the medial left base. 5. Please see additional findings as above. THIS IS AN ELECTRONICALLY VERIFIED FINAL REPORT 08/16/2021 12:47 PM - Electronically signed by Cleo heck M.D. BG: Report ID: [id number] Reading Location: [id number] XR Knee Left 1 or 2 Views Result Date: 09/03/2021 Narrative: EXAM DESCRIPTION: XR KNEE LEFT 1 OR 2 VIEWS REASON FOR STUDY: pain, no known injury C/o left lower leg pain and swelling. Onset yesterday. Hx of dvt's and pe's. TECHNIQUE: AP and lateral radiographic views acquired of the left knee. COMPARISON: None FINDINGS: BONES/JOINTS: No fracture orbone destruction was seen. There is severe arthritis with asymmetric joint space narrowing and osteophyte formation. SOFT TISSUES: Unremarkable. OTHER: No other significant finding. IMPRESSION: 1. Severe arthritis 2. No acute osseous abnormality. THIS IS AN ELECTRONICALLY VERIFIED FINAL REPORT 09/03/2021 7:58 PM - Electronically signed by Sen Sy M.D. JANIYA: JANIYA Report ID: [id number] Reading Location: [id number] XR Tibia Fibula Left 2 Views Result Date: 09/03/2021 Narrative: EXAM DESCRIPTION: XR TIBIA FIBULA LEFT 2 VIEWS REASON FOR STUDY: pain, no known injury. 'Hx of cancer C/o left lower leg pain and swelling. Onset yesterday. Hx of dvt's and pe's. TECHNIQUE: Two views acquired of the left tibia and fibula. COMPARISON: None FINDINGS: BONES: No acute fracture. No suspicious bone lesions. Severe arthritis is seen in the knee. SOFT TISSUES: Unremarkable. OTHER: No other significant finding. IMPRESSION: No acute osseous abnormality. THIS IS AN ELECTRONICALLY VERIFIED FINAL REPORT 09/03/2021 7:59 PM - Electronically signed by Sen Sy M.D. JANIYA: JANIYA Report ID: [id number] Reading Location: [id number] Stress Test for Myocardial Perfusion Result Date: 09/14/2021 Narrative: Elton Job ID: [id number] Amphion Document ID: [id number] Dictated date/time: LEXISCAN MYOVIEW Patient was brought into stress lab and injected Lexiscan according to protocol. Resting heart rate 76 beats per minute, blood pressure 156/87. EKG sinus rhythm, otherwise unremarkable. Post infusion heart rate 98 beats per minute, blood pressure 135/75. EKG sinus rhythm withnonspecific ST-T wave changes in lateral leads. IMPRESSION 1. Overall test was tolerated well. 2. No evidence of myocardial ischemia by EKG criteria. 3. Separate Myoview report will be dictated by Radiology. Job ID/Internal Job ID: [id number] Transthoracic Echo Complete W Doppler/CF Result Date: 09/13/2021 Narrative: Adult Echocardiogram + + :Name: MOHSEN MARQUES Study Date: 09/13/2021 Status: [facility] : : Patient Location: [address]^[id number]^MHeight: 61 in : : Weight: 282 lbBP: 140/85 mmHg: :: 1955 Gender: Female BSA: 2.2 m2 : :Reason For S tudy: Chest Pain : :Ordering Physician: LEN, : :SRAVAN : : : :Performed By: Alvina : :JONATHAN Clay : + + Procedure A two-dimensional transthoracic echocardiogram with color flow and Doppler wasperformed. The study was technically difficult due to patient's 'body habitus'. A contrast injection of Definity was performed to improve assessment of LV function. Lot No. [id number]. The study was done portably. Left Ventricle The left ventricle is normal in size. There is borderline concentric left ventricular hypertrophy. Left ventricular systolic function is normal. Ejection Fraction = 55-60%. Theleft ventricular wall motion is normal. Right Ventricle The right ventricle is normal size. The right ventricular systolic function is normal. Atria The left atrial size is normal. Right atrial size is normal. Mitral Valve There is mild to moderate mitral annular calcification. Mitral valve peak gradient is 5.6 mm/Hg. Mitral valve mean gradient is 1.5 mm/Hg. There is no mitral valve stenosis.There is physiologic mitral regurgitation. Tricuspid Valve The tricuspid valve is not well visualized. There is trace tricuspid regurgitation. Cannot assess RVSP due to lack of sufficient TR jet. Aortic Valve Aortic valve sclerosis' mild'. The aortic valve opens well. Aortic valve sclerotic, but not stenotic. Aortic valve velocity is 193 cm/s. LVOT velocity is 124 cm/s. Aortic valve area = 2.2 cm2. No aortic regurgitation is present. Pulmonic Valve The pulmonic valve is not well visualized. Pulmonic valve velocity is 124 cm/s. RVOT velocity is 87 cm/s. Great Vessels The aortic root is normal size. IVC not well seen. Pericardium There is no pericardial effusion. Diastology Mitral inflow shows reversal of E/A ratio, suggestive of diastolic dysfunction of left ventricle. E/E prime ratio is 8-15 which is in the indeterminate zone. Grade I diastolic dysfunction, (abnormal relaxation pattern). Interpretation Summary There is borderline concentric left ventricular hypertrophy. Left ventricular systolic function is normal. Ejection Fraction = 55-60%. The right ventricle is normal size. Theright ventricular systolic function is normal. Aortic valve sclerotic, but not stenotic. There is mild to moderate mitral annular calcification. Mitral valve mean gradient is 1.5 mm/Hg. There is nomitral valve stenosis. Grade I diastolic dysfunction, (abnormal relaxation pattern). + + :Measurements with Normals : : (0.6-1.2 LVIDd: (3.5-5.7 Ao root diam: (2.0-3.7 : :IVSd: 1.2 cmcm) 4.5 cm cm) 2.9 cm cm) : :LVPWd: (0.6-1.1 LVIDs: (3.1-4.6 LA dimension: (1.9-4.0 : :1.1 cm cm) 3.0 cm cm) 3.9 cm cm) : + + MMode/2D Measurements & Calculations FS: 33.3 % Ao root area: LVOT diam: 2.1 cm LVLd ap4: 7.1 cm EDV(Teich): 94.4 ml 6.6 cm2 LVOT area: EDV(MOD-sp4): ESV(Teich): 35.9 ml 3.5 cm2 84.8 ml LVLs ap4: 5.5 cm ESV(MOD-sp4): 28.0 ml EF(MOD-sp4): 67.0 % SV(MOD-sp4): EF (BP): 71.5 % 56.8 ml Doppler Measurements & Calculations MV E max simeon: MV V2 max: MV dec time: Ao V2 max: 83.4 cm/sec 117.9 cm/sec 0.27 sec 193.0 cm/sec MV A max simeon: MV max PG: Ao max P.0 cm/sec 5.6 mmHg 14.9 mmHg MV E/A: 0.70 MV V2 mean: ELVIA(V,D): 2.2 cm2 51.9 cm/sec MV mean P.5 mmHg MV V2VTI: 32.1 cm LV V1 max PG: PA V2 max: PI end-d simeon: RV V1 max: 6.2 mmHg 124.0 cm/sec 81.4 cm/sec 87.0 cm/sec LV V1 max: PA max P.0 cm/sec 6.2 mmHg TR max simeon: 242.0cm/sec TR max P.4 mmHg Electronically signed by: Luis Elizabeth MD 09/13/2021 11:01 PM NM MPI SPECT (Rest and/or Stress) Multiple Studies Result Date: 09/14/2021 Narrative: EXAM DESCRIPTION: NM MPI SPECT (REST AND/OR STRESS) MULTIPLE STUDIES REASON FOR STUDY: Chest pain 4 days ago. RADIOPHARMACEUTICAL: Rest: 10.5 mCi Tc- 99m tetrofosmin Pharmacologic Stress: 30.1 mCi Tc-99m tetrofosmin Injection site: Right antecubital vein IV site TECHNIQUE: Standard myocardial perfusion images were obtained after resting tracer injection. Subsequently, an intravenous infusion of 0.4 mg Lexiscan was performed. Standard myocardial perfusion images were obtained after tracer injection at the peak effect of the drug. COMPARISON: None available FINDINGS: Image quality is adequate at rest and adequate at stress. Small area of mildly reduced perfusion in the distal anterio r wall of the left ventricle at stress with normal perfusion at rest. The left ventricular cavity size is normal. Gated tomographic images demonstrate normal wall motion and wall thickening with a left ventricular ejection fraction of 74 % poststress (normal >45%). IMPRESSION: Small area of ischemia in the distal anterior wall of left ventricle. Normal left ventricular ejection fraction of 74 % poststress. Normal wall motion. THIS IS AN ELECTRONICALLY VERIFIED FINAL REPORT 09/14/2021 11:55 AM- Electronically signed by Perfecto Arguello M.D. LB: TAYLOR Report ID: [id number] Reading Location: [id number] CT Chest PE W Contrast Result Date: 09/11/2021 Narrative: EXAM DESCRIPTION: CT CHEST PE (CTA) W CONTRAST REASON FOR STUDY: Chest pain, PE suspected, low/intermediate prob, positive D-dimer Pt was supposed to get ultra sound for possible dvt last week but was unable to make the appointment. Pt woke last night feeling uneasy and heaviness in her chest and left arm pain. TECHNIQUE: CT angiogram of the chest performed [...] INTRAVENOUS SYRINGE injected via intravenous COMPARISON: CT pulmonary angiogram 11/11/2017. FINDINGS: VASCULATURE: Pulmonary arteries are appropriately opacified and no intraluminal filling defects are identified toindicate the presence of acute pulmonary emboli. The aorta is nonaneurysmal. The branching pattern of the great vessels is normal. LUNGS: No airspace consolidation is identified. Scattered subsegmental atelectasis within both lungs. PLEURA: No pleural effusion or evidence of a pneumothorax. MEDIAST INUM/SHALA: Enlarged prevascular lymph node measures 1.7 x 1.4 cm (axial image 38). This is slightlylarger than on the chest CT from 2018 when it measured 1.3 x 1.0 cm. Central airways are patent. HEART: Normal in size. There is no pericardial effusion. AXILLA: No adenopathy. CHEST WALL: Bilateral thyroid nodules some of which are calcified. Largest nodule on the right measures about 1.5 cm. Given nodule size and patient age, routine follow-up with thyroid ultrasound may be obtained. HARDWARE/LINES/TUBES: None. UPPER ABDOMEN: No acute abnormality. Cholecystectomy. MUSCULOSKELETAL: Moderate thoracic disc degeneration. No compression fracture. No aggressive bone or endplate destruction. OTHER: No significant abnormality. IMPRESSION: No evidence of an acute pulmonary embolus. Nonspecific mildly enlarged prevascular lymph node measuring 1.7 x 1.4 cm currently. Bilateral thyroid nodules, largest on the right measuring 1.5 cm. Routine follow-up with thyroid ultrasound may be obtained. THIS IS AN ELECTRONICALLY VERIFIED FINAL REPORT 09/11/2021 5:38 PM - Electronically signed by Giovanni Johnston D.O. : Report ID: [id number] Reading Location: [place] [address] Discharge Details Physical Exam at Discharge: Discharge Condition: stable Pulse: 85 Resp: 18 BP: 123/79 Temp: 36.7 ??C (98.1 ??F) Weight: 128.2 kg (282 lb 11.2 oz) Pertinent Exam Findings at Discharge: GENERAL: [...] changes . Discharge Medications: Your medication list START taking these medications pantoprazole DR 40 mg EC tablet Take 1 tablet (40 mg total) by mouth 2 (two) times a day Commonly known as: PROTONIX CHANGE how you take these medications insulin glargine 100 unit/mL vial for injection Inject 40 Units under the skin daily. Takes in the morning Commonly known as: LANTUS, SEMGLEE What changed: how much to take insulin lispro 100 unit/mL vial for injection Inject 12 Units under the skin 3 (three) times a day before meals. Commonly known as: HumaLOG, ADMELOG What changed: how much to take oxybutynin 5 mg tablet take 1 tablet by oral route every day Commonly known as: DITROPAN What changed: how to take this when to take this CONTINUE taking these medications albuterol HFA 90 mcg/actuation inhaler Commonly known as: PROVENTIL HFA,VENTOLIN HFA,PROAIR HFA amitriptyline 25 mg tablet Commonly known as: ELAVIL BD Ultra-Fine Short Pen Needle 31 gauge x 5/16 needle Generic drug: pen needle, diabetic exemestane 25 mg tablet Take 1 tablet (25 mg total) by mouth nightly Commonly known as: AROMASIN HYDROcodone-acetaminophen 7.5-325 mg per tablet Commonly known as: NORCO mupirocin 2 % ointment Commonly known as: BACTROBAN naloxone 4 mg/actuation spray,non-aerosol Commonly known as: NARCAN OneTouch Ultra Test strip Generic drug: blood glucose diagnostic rivaroxaban 20 mg tablet Take 1 tablet (20 mg total) by mouth daily Commonly known as: Xarelto rOPINIRole 5 mg tablet Commonly known as: REQUIP Outpatient Follow-Up: Future Appointments Date Time Provider Department Center 03/08/2022 10:50 AM ÁLVAREZ IM BONE TECH [facility] 03/08/2022 12:00 PM Khris Arthur MD ONC CAM7 Oncology Time Spent on Discharge Process: I have spent 20 minutes on discharge planning activities. Time spent was on Coordination of care, Follow up , Counselling with patient/family and discharge exam. 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 Cardiology consulted. Echo yesterday showed EF 55-60%. Plan Includes: Plan for stress test today, if negative, anticipate dc home, no needs. Primary Care Provider: Justen Gale MD Prior to Admission: Primary Caregiver: Self Support System: Spouse/Significant Other Durable Medical Equipment: Cane (single prong), Walker (wheeled), CPAP/Bi-PAP Living Arrangements: Spouse/significant other Type of Residence: Private residence (09/14/[address]) Patient expects to be Discharged to: Private residence, (09/14/[address]) Patient's Identified Problem/Goal Problem: Ensure acute medical [...] Collaboration with patient, MD, direct care nurse, Transportation Assistant, Nurse Coordinator and other members of the health care team to assure needed interventions completed. 2. Return patient to optimal level of self-care post discharge. 3. Paver Installer will follow for Discharge Planning - interventions as needed 4. Anticipated level of care at discharge 5. Planned Discharge Disposition Bonnie Granados RN * Andrew Marx MD - 09/14/2021 9:27 AM CDT Cardiology Daily Progress Note Subjective: No complaints of chest pain. Objective Vital Signs: 24hr Min/Max: Temp Min: 36.3 ??C (97.4 ??F) Max: 36.8 ??C (98.3 ??F) Pulse Min: 72 Max: 97 BP Min: 112/68 Max: 124/79 Resp Min: 18 Max: 20 SpO2 Min: 94 % Max: 98 % Most Recent: Vitals: 09/14/21 0725 BP: 112/68 Pulse: 73 Resp: 20 Temp: 36.7 ??C (98.1 ??F) SpO2: 95% Intake/Output: Intake/Output Summary (Last 24 hours) at 09/14/2021 09 Last data filed at 09/13/2021 1346 Gross per 24 hour Intake 480 ml Output -- Net 480 ml Telemetry: Sinus rhythm Physical Exam: General: In no acute distress. HEENT: Sclera nonicteric. Neck: No jugular venous distension. Cardiac: Normal rate, regular rhythm. No murmurs, rubs, or gallops. Pulmonary: Clear to auscultation bilaterally. Abdomen: Soft, nondistended, nontender. Extremities: No edema. Neurologic: Alert and oriented to person/place/time. Psychiatric: Normal behavior, pleasant and conversant. Current Medications: Current Facility-Administered Medications: ??? albuterol HFA (PROVENTIL HFA,VENTOLIN HFA,PROAIR HFA) 90 mcg/actuation inhaler 2 puff, 2 puff, inhalation, Q6H PRN (RT) ??? amitriptyline (ELAVIL) tablet 25 mg, 25 mg, oral, Nightly, 25 mg at 09/13/212028 ??? enoxaparin (LOVENOX) syringe 120 mg, 1 mg/kg, subcutaneous, Q12H RODERICK, 120 mg at 09/13/212042 ??? exemestane (AROMASIN) tablet 25 mg, 25 mg, oral, Nightly ??? HYDROcodone-acetaminophen (NORCO) 5-325 mg per tablet 1 tablet, 1 tablet, oral, Q4H PRN, 1 tablet at 09/14/21 0407 ??? insulin glargine (LANTUS, SEMGLEE) 100 unit/mL injection 40 Units, 40 Units, subcutaneous, Daily, 40 Units at 09/13/21 0908 ??? insulin lispro (HumaLOG, ADMELOG) 100 unit/mL injection 12 Units, 12 Units, subcutaneous, TID AC, 12 Units at 09/13/21 1717 ??? ondansetron ODT (ZOFRAN-ODT) disintegrating tablet 4 mg, 4 mg, oral, Q6H PRN OR ondansetron(ZOFRAN) injection 4 mg, 4 mg, intravenous, Q6H PRN, 4 mg at 09/13/212228 ??? oxybutynin (DITROPAN) tablet 5 mg, 5 mg, oral, BID, 5 mg at 09/13/212028 ??? pantoprazole DR (PROTONIX) extended release tablet 40 mg, 40 mg, oral, BID, 40 mg at 09/13/212027 ??? regadenoson (LEXISCAN) 0.4 mg/5 mL injection 0.4 mg, 0.4 mg, intravenous, Once ??? [Held by Provider] rivaroxaban (XARELTO) tablet 20 mg, 20 mg, oral, Daily ??? rOPINIRole (REQUIP) tablet 5 mg, 5 mg, oral, Nightly ??? trolamine salicylate (ASPERCREME) 10 % cream, , topical, BID PRN, 1 application at 09/12/21 2339 Lab/Radiology/Diagnostic Review: Labs: Recent Labs Lab Units 09/14/21 0340 09/13/21 1713 09/11/21 1446 HEMOGLOBIN g/dL 13.5 14.9 13.5 HEMATOCRIT % 43.5 47.0* 42.9 WBC K/cumm 12.1* 12.7* 12.4* PLATELETS K/cumm 267 281 282 Recent Labs Lab Units 09/14/21 0340 SODIUM mmol/L 137 POTASSIUM PLASMA mmol/L 4.4 CHLORIDE mmol/L 102 CO2 mmol/L 24 ANIONGAP mmol/L 11 BUN SERUM mg/dL 24 CREATININE mg/dL 0.70 CALCIUM mg/dL 9.2 Recent Labs Lab Units 09/13/21 1713 ALBUMIN g/dL 4.2 ALK PHOS Units/L 96 AST Units/L 17 ALT Units/L 20 BILIRUBIN TOTAL mg/dL 0.6 Recent Labs Lab Units 09/11/21 1449 09/11/21 1446 TROPONIN I POC ng/mL 0.00 -- TSH mcIUnit/mL -- 2.20 Assessment/Plan Chest pain, cardiac enzymes are negative for myocardial injury. ?? Hypertension. ?? Diabetes. ?? Multiple risk factors for coronary artery disease. Recommendation: Bipin Evans to rule out ischemic cause of her symptoms. Hypertension, blood pressure is well controlled. I will make further recommendation after reviewing Bipin Evans report. Andrew Marx MD Cardiology 9:28 AM 09/14/21 * Sravan Patel MD - 09/13/2021 3:51 PM CDT Images from the original note were not included. General Medicine Daily Progress SUBJECTIVE History of Present Illness: Patient is a 66 y.o. female with a PMHx significant for left breast cancer status post bilateral mastectomy, congestive heart failure, depression, diabetes mellitus type 2, thyroid disease, hypertension, restless leg syndrome and history of DVT. Patient presents to the ED with a chief complaint of chest pain and generalized weakness. Pt reports waking up twice last night feeling sick, weak, andshaky. Pt endorses nausea. Pt states her chest felt funny, and it felt like her heart was not beating right. Pt endorses twinges of pain across her chest. Pt reports ambulating and was able to return to sleep. Pt states waking up again around 7 AM and still felt sick. Pt reports eating breakfast and taking her medication earlier today when her symptoms returned. Pt also endorses SOB and feeling hot like she had a fever. Pt reports the left side of her body, including the middle of her leg, are puffy. Pt denies chills and heartburn. No other modifying factors or associated symptoms at this time. CTA chest PE protocol was performed ??No evidence of an acute pulmonary embolus. Nonspecific mildly enlarged prevascular lymph node measuring 1.7 x 1.4 cm currently. ??Bilateral thyroid nodules, largest on the right measuring 1.5 cm. ?? Chief complaint of chest pain Interval History: 09/13/21 Patient states she is feeling much better and is currently not having any chest pain. Patient was seen by Cardiology and planning to do a stress test in a.m.. Echocardiogram done report pending OBJECTIVE Vitals: 24hr Min/Max: Temp Min: 36.3 ??C (97.3 ??F) Max: 36.8 ??C (98.2 ??F) Pulse Min: 70 Max: 87 BP Min: 123/75 Max: 140/85 Resp Min: 17 Max: 18 SpO2 Min: 94 % Max: 97 % Most Recent : Vitals: 09/13/21 0904 BP: 140/85 Pulse: 87 Resp: 18 Temp: 36.3 ??C (97.3 ??F) SpO2: 97% I/O last 2 completed shifts: In: 680 [P.O.:680] Out: 800 [Urine:800] I/O this shift: In: 480 [P.O.:480] Out: - Physical Exam: Eyes: EOMI, NETTIE, sclare non icteric Neck: supple, no nuchal ridigity, no gross carotid bruits appreciated Pharynx: No gross oral lesion, tongue midline, mucosa moist Lungs CTA Heart: [id number], no significant murmur or gallop Abd: +BS, Non Tender, Non distended, No gross hepatomegaly Lower Ext: No gross edema, pedal artery pulses are palpable bilaterally Neuro: No new deficits appreciated Musculoskeletal: no gross joint erythema, edema, tenderness Skin: No new change Lab/Current Medication Review: Recent Results (from the past 24 hour(s)) POCT glucose Collection Time: 09/12/21 5:04 PM Result Value Ref Range Glucose, POC 105 70 - 199 mg/dL Glucose comment 1 Use This Result POCT glucose Collection Time: 09/12/21 9:00 PM Result Value Ref Range Glucose, POC 155 70 - 199 mg/dL POCT glucose Collection Time: 09/13/21 9:03 AM Result Value Ref Range Glucose, POC 128 70 - 199 mg/dL POCT glucose Collection Time: 09/13/21 12:30 PM Result Value Ref Range Glucose, POC 107 70 - 199 mg/dL Glucose comment 1 Use This Result Glucose comment 2 Will Notify Nurse Imaging CT Abdomen Pelvis WO Contrast ?? Result Date: 09/11/2021 Narrative: EXAM DESCRIPTION: CT ABDOMEN PELVIS WO CONTRAST REASON FOR STUDY: Nausea/vomiting, Abdominal pain, acute, nonlocalized Generalized weakness with nausea today TECHNIQUE: CT scan of the abdomen and pelvis performed without intravenous and without oral contrast using helical scanning technique. Reconstructed coronal and sagittal MPR images reviewed. All images stored on PACS. Automated exposure control was used as a dose optimization technique for this examination. COMPARISON: None FINDINGS: The sensitivity for detection of visceral lesions is diminished without the use of intravenous contrast; pathology may not be appreciable. LOWER CHEST: Please see separately dictated CT chest from same day LIVER: No identified cystic or solid masses on noncontrast imaging. GALLBLADDER: Surgically absent. BILE DUCTS: No intrahepatic or extrahepatic ductal dilatation. SPLEEN: No focal lesions. PANCREAS: No identified cystic or solid masses. No significant calcifications. No adjacent inflammation or peripancreatic fluid collections. Pancreatic duct not dilated. ADRENALS: Unremarkable. KIDNEYS/URINARY TRACT: No identified significant cystic or solid masses. No visualized stones. No hydronephrosis or hydroureter. Urinary bladder is unremarkable. GI: Evaluation the gastrointestinal tract is limited by lack of distention and bowel prep. Distal esophagus is unremarkable. Stomach and proximal small bowel are unremarkable. No small bowel obstruction. Scattered diverticular disease withoutevidence of acute diverticulitis. PERITONEUM: No ascites or free air. RETROPERITONEUM: No mass or adenopathy. REPRODUCTIVE: No significant abnormality. VASCULATURE: No abdominal aortic aneurysm. MUSCU LOSKELETAL: Redemonstration of marked increased sclerosis about the bilateral sacroiliac joints with questionable erosive change at the left sacroiliac joint, possibly related to inflammatory arthropathy. Postsurgical changes along the lower anterior abdominal wall. OTHER: No additional significantabnormality. IMPRESSION: No acute process in the abdomen pelvis. Redemonstration of marked sclerosis about the bilateral sacroiliac joints with questionable erosion at the left sacroiliac joint, possibly related to inflammatory arthropathy. Please see additional findings as above. THIS IS AN ELECTRONICALLY VERIFIED FINAL REPORT 09/11/2021 10:39 PM - Electronically signed by Cleo Garza M.D. BG: Report ID: [id number] Reading Location: [id number] CT Chest PE W Contrast ?? Result Date: 09/11/2021 Narrative: EXAM DESCRIPTION: CT CHEST PE (CTA) W CONTRAST REASON FOR STUDY: Chest pain, PE suspected, low/intermediate prob, positive D-dimer Pt was supposed to get ultra sound for possible dvt last week but was unable to make the appointment. Pt woke last night feeling uneasy and heaviness in her chest and left arm pain. TECHNIQUE: CT angiogram of the chest performed [...] INTRAVENOUS SYRINGE injected via intravenous COMPARISON: CT pulmonary angiogram 11/11/2017. FINDINGS: VASCULATURE:Pulmonary arteries are appropriately opacified and no intraluminal filling defects are identified to indicate the presence of acute pulmonary emboli. The aorta is nonaneurysmal. The branching patternof the great vessels is normal. LUNGS: No airspace consolidation is identified. Scattered subsegmental atelectasis within both lungs. PLEURA: No pleural effusion or evidence of a pneumothorax. MEDIAST INUM/SHALA: Enlarged prevascular lymph node measures 1.7 x 1.4 cm (axial image 38). This is slightlylarger than on the chest CT from 2018 when it measured 1.3 x 1.0 cm. Central airways are patent. HEART: Normal in size. There is no pericardial effusion. AXILLA: No adenopathy. CHEST WALL: Bilateral thyroid nodules some of which are calcified. Largest nodule on the right measures about 1.5 cm. Given nodule size and patient age, routine follow-up with thyroid ultrasound may be obtained. HARDWARE/LINES/TUBES: None. UPPER ABDOMEN: No acute abnormality. Cholecystectomy. MUSCULOSKELETAL: Moderate thoracic disc degeneration. No compression fracture. No aggressive bone or endplate destruction. OTHER: No significant abnormality. IMPRESSION: No evidence of an acute pulmonary embolus. Nonspecific mildly enlarged prevascular lymph node measuring 1.7 x 1.4 cm currently. Bilateral thyroid nodules, largest on the right measuring 1.5 cm. Routine follow-up with thyroid ultrasound may be obtained. THIS IS AN ELECTRONICALLY VERIFIED FINAL REPORT 09/11/2021 5:38 PM - Electronically signed by Giovanni Johnston D.O. : Report ID: [id number] Reading Location: [place] [id number] ?? Current Facility-Administered Medications Medication Dose Route Frequency Provider Last Rate Last Admin ??? albuterol HFA (PROVENTIL HFA,VENTOLIN HFA,PROAIR HFA) 90 mcg/actuation inhaler 2 puff 2 puff inhalation Q6H PRN (RT) Drew Calero MD ??? amitriptyline (ELAVIL) tablet 25 mg 25 mg oral Nightly Drew Calero MD 25 mg at 09/12/212122 ??? enoxaparin (LOVENOX) syringe 120 mg 1 mg/kg subcutaneous Q12H RODERICK Sravan Patel MD 120 mg at 09/13/21 0909 ??? HYDROcodone-acetaminophen (NORCO) 5-325 mg per tablet 1 tablet 1 tablet oral Q4H PRN Drew Calero MD 1 tablet at 09/13/21 1104 ??? insulin glargine (LANTUS, SEMGLEE) 100 unit/mL injection 40 Units 40 Units subcutaneous Daily Drew Calero MD 40 Units at 09/13/21 0908 ??? insulin lispro (HumaLOG, ADMELOG) 100 unit/mL injection 12 Units 12 Units subcutaneous TID AC Drew Calero MD 12 Units at 09/13/21 1008 ??? ondansetron ODT (ZOFRAN-ODT) disintegrating tablet 4 mg 4 mg oral Q6H PRN Drew Calero MD Or ??? ondansetron (ZOFRAN) injection 4 mg 4 mg intravenous Q6H PRN Drew Calero MD ??? oxybutynin (DITROPAN) tablet 5 mg 5 mg oral BID Drew Calero MD 5 mg at 09/13/21 0909 ??? pantoprazole DR (PROTONIX) extended release tablet 40 mg 40 mg oral BID Sravan Patel MD 40 mg at 09/13/21 1104 ??? perflutren lipid (DEFINITY) 1.5 mL in sodium chloride 0.9% 10 mL syringe 1- 10 mL intravenous Once in imaging Andrew Marx MD ??? request for patient's supply of exemestane (AROMASIN) tablet 25 mg 25 mg oral Nightly Drew Calero MD ??? [Held by Provider] rivaroxaban (XARELTO) tablet 20 mg 20 mg oral Daily Drew Calero MD ??? rOPINIRole (REQUIP) tablet 5 mg 5 mg oral Nightly Drew Calero MD 5 mg at 09/12/212122 ??? trolamine salicylate (ASPERCREME) 10 % cream topical BID PRN Drew Calero MD 1 application at 09/12/21 4019 A/P: Principal Problem: Chest pain Resolved Problems: No resolved hospital problems. # chest pain rule out acute coronary syndrome Will do serial troponin and EKGs Consult cardiology service for further evaluation Ordered 2D echo with Doppler 09/13/21 Patient seen by Cardiology and he is ordered a stress test for a.m. echocardiogram has been done results pending. ?? # hypertension continue current blood pressure medication blood pressure has been stable. Patient has been on lisinopril and metoprolol 09/13/21. Blood pressure under good control continue current regimen # insulin-dependent diabetes mellitus. Continue current insulin regimen and medication she is taking at home. Monitor blood sugar closely. 09/13/21 Blood glucose 107-156 Continue current regimen ?? # history of breast cancer status post bilateral mastectomies and left axilla lymph node dissection. ?? # GERD continue pantoprazole 40 mg daily and famotidine 20 mg b.i.d. patient has been taking both at home. ?? # restless leg syndrome continue Requip ?? # patient has a history of DVT and has been on Xarelto. ?? # DVT prophylaxis. Continue Xarelto as patient was taking at home. ?? PT/OT: Ordered Case discussed with Case Management and Transportation Assistant Medical complexity/risk: Moderate It took 26 minutes to review the chart, examined the patient, enter orders, discussed case with nurse, discussed case with Dr. Yeboah, and answer patient's questions and concerns at length I spent more than 50% of the time coordinating care and counseling Voice recognition software MModal Fluency Direct may have been used dictate and transcribe this document. Optical Manager variances may occur. Despite proofreading, typographical errors may occur. Sravan Patel MD 09/13/2021 3:51 PM * Ramon Guthrie - 09/13/2021 3:49 PM CDT 09/13/21 1500 Time Spent Start Time 022 Patient Spiritual Assessment Spirituality Assessed Yes Confucianist Affiliation Scientology Active in Judaism Yes Clinical Encounter Type Visited With Patient Response Type Routine visit Routine Visit Introduction Reason for visit Support Ironer Or Presser offered pastoral support to pt who was okay, but a little anxious about upcoming back surgery. Provided comfort, empathy, and prayer to offer pt spiritual care. * Andrew Marx MD - 09/13/2021 10:13 AM CDT Cardiology Daily Progress Note Subjective: No recurrence of chest pain over last night. Objective Vital Signs: 24hr Min/Max: Temp Min: 36.3 ??C (97.3 ??F) Max: 36.8 ??C (98.2 ??F) Pulse Min: 70 Max: 87 BP Min: 123/75 Max: 140/85 Resp Min: 17 Max: 18 SpO2 Min: 94 % Max: 97 % Most Recent: Vitals: 09/13/21 0904 BP: 140/85 Pulse: 87 Resp: 18 Temp: 36.3 ??C (97.3 ??F) SpO2: 97% Intake/Output: Intake/Output Summary (Last 24 hours) at 09/13/2021 1013 Last data filed at 09/13/2021 1005 Gross per 24 hour Intake 920 ml Output 800 ml Net 120 ml Telemetry: Sinus rhythm Physical Exam: General: In no acute distress. HEENT: Sclera nonicteric. Neck: No jugular venous distension. Cardiac: Normal rate, regular rhythm. No murmurs, rubs, or gallops. Pulmonary: Clear to auscultation bilaterally. Abdomen: Soft, nondistended, nontender. Extremities: No edema. Neurologic: Alert and oriented to person/place/time. Psychiatric: Normal behavior, pleasant and conversant. Current Medications: Current Facility-Administered Medications: ??? albuterol HFA (PROVENTIL HFA,VENTOLIN HFA,PROAIR HFA) 90 mcg/actuation inhaler 2 puff, 2 puff, inhalation, Q6H PRN (RT) ??? amitriptyline (ELAVIL) tablet 25 mg, 25 mg, oral, Nightly, 25 mg at 09/12/212122 ??? enoxaparin (LOVENOX) syringe 120 mg, 1 mg/kg, subcutaneous, Q12H RODERICK, 120 mg at 09/13/21 0909 ??? HYDROcodone-acetaminophen (NORCO) 5-325 mg per tablet 1 tablet, 1 tablet, oral, Q4H PRN, 1 tablet at 09/12/21 2339 ??? insulin glargine (LANTUS, SEMGLEE) 100 unit/mL injection 40 Units, 40 Units, subcutaneous, Daily, 40 Units at 09/13/21 0908 ??? insulin lispro (HumaLOG, ADMELOG) 100 unit/mL injection 12 Units, 12 Units, subcutaneous, TID AC, 12 Units at 09/13/21 1008 ??? ondansetron ODT (ZOFRAN-ODT) disintegrating tablet 4 mg, 4 mg, oral, Q6H PRN OR ondansetron(ZOFRAN) injection 4 mg, 4 mg, intravenous, Q6H PRN ??? oxybutynin (DITROPAN) tablet 5 mg, 5 mg, oral, BID, 5 mg at 09/13/21 0909 ??? request for patient's supply of exemestane (AROMASIN) tablet 25 mg, 25 mg, oral, Nightly ??? [Held by Provider] rivaroxaban (XARELTO) tablet 20 mg, 20 mg, oral, Daily ??? rOPINIRole (REQUIP) tablet 5 mg, 5 mg, oral, Nightly, 5 mg at 09/12/212122 ??? trolamine salicylate (ASPERCREME) 10 % cream, , topical, BID PRN, 1 application at 09/12/21 2339 Lab/Radiology/Diagnostic Review: Labs: Recent Labs Lab Units 09/11/21 1446 HEMOGLOBIN g/dL 13.5 HEMATOCRIT % 42.9 WBC K/cumm 12.4* PLATELETS K/cumm 282 Recent Labs Lab Units 09/11/21 1503 09/11/21 1446 SODIUM mmol/L -- 138 POTASSIUM PLASMA mmol/L -- 4.6 CHLORIDE mmol/L -- 100 CO2 mmol/L -- 26 ANIONGAP mmol/L -- 12 BUN SERUM mg/dL -- 15 CREATININE mg/dL -- 0.60 CREATININE POC mg/dL 0.70 -- CALCIUM mg/dL -- 9.3 Recent Labs Lab Units 09/11/21 1446 ALBUMIN g/dL 3.9 ALK PHOS Units/L 88 AST Units/L 25 ALT Units/L 22 BILIRUBIN TOTAL mg/dL 0.7 Recent Labs Lab Units 09/11/21 1449 09/11/21 1446 TROPONIN I POC ng/mL 0.00 -- TSH mcIUnit/mL -- 2.20 Assessment/Plan Chest pain, cardiac enzymes are negative for myocardial injury. Hypertension. Diabetes. Multiple risk factors for coronary artery disease. Recommendation: I will schedule her for a stress Myoview to rule out ischemic cause of her chest pain. I also recommended her to take him PPI for possible gastroesophageal reflux disease. I will make further recommendation after reviewing stress test results Andrew Marx MD Cardiology 10:13 AM 09/13/21 * Sravan Patel MD - 09/12/2021 8:25 AM CDT Ms. Marques 66-year-old female with past medical history of left breast cancer status post bilateral mastectomies, congestive heart failure, depression, diabetes mellitus type 2, thyroid disease, hypertension, restless leg syndrome, and history of DVT. Patient presented to the emergency room with chief complaint of chest pain generalized weakness. Patient was admitted for chest pain rule out acute coronary syndrome, hypertension, insulin-dependent diabetes, history of breast cancer status post bilateral mastectomies, GERD, restless leg syndrome, history of DVT on Xarelto. Patient is having serial troponins serial EKGs, echocardiogram and cardiology consult. documented in this encounter H&P Notes * Drew Calero MD - 09/12/2021 2:57 AM CDT Images from the original note were not included. History and Physical Date of Service: 09/12/2021 Primary Care Physician: Justen Gale MD [phone] Chief Complaint: Chest pain HPI: Patient is a 66 y.o. female with a PMHx significant for left breast cancer status post bilateral mastectomy, congestive heart failure, depression, diabetes mellitus type 2, thyroid disease, hypertension, restless leg syndrome and history of DVT. Patient presents to the ED with a chief complaint of chest pain and generalized weakness. Pt reports waking up twice last night feeling sick, weak, andshaky. Pt endorses nausea. Pt states her chest felt funny, and it felt like her heart was not beating right. Pt endorses twinges of pain across her chest. Pt reports ambulating and was able to return to sleep. Pt states waking up again around 7 AM and still felt sick. Pt reports eating breakfast and taking her medication earlier today when her symptoms returned. Pt also endorses SOB and feeling hot like she had a fever. Pt reports the left side of her body, including the middle of her leg, are puffy. Pt denies chills and heartburn. No other modifying factors or associated symptoms at this time. CTA chest PE protocol was performed ??No evidence of an acute pulmonary embolus. Nonspecific mildly enlarged prevascular lymph node measuring 1.7 x 1.4 cm currently. ??Bilateral thyroid nodules, largest on the right measuring 1.5 cm. Patient is being admitted for further evaluation and management. ?? Past Medical History: Diagnosis Date ??? Adiposity [...] Rash ??? Levofloxacin Hives and Unknown ??? Lisinopril Swelling ??? Piperacillin-Tazobactam Rash ??? Metoclopramide Hcl Unknown [...] of restless leg syndrome; Review of Systems: Constitutional: Negative. HENT: Negative. Eyes: Negative. Respiratory: Negative. Cardiovascular: Negative. Gastrointestinal: Negative. Endocrine: Negative. Genitourinary: Negative. Musculoskeletal: Negative. Skin: Negative. OBJECTIVE: Vitals: Arrival Vitals Temp 09/11/21 1436 36.8 ??C (98.2 ??F) Pulse 09/11/21 1436 90 Resp 09/11/21 1436 18 BP 09/11/21 1436 (!) 184/98 SpO2 09/11/21 1436 99 % Temp src 09/11/21 1436 Temporal Heart Rate Source 09/11/21 1716 Monitor Patient Position 09/11/21 1716 Lying BP Location 09/11/21 1716 Left arm FiO2 (%) -- Most Recent : Vitals: 09/11/21 2345 09/11/21 2350 09/12/21 0023 09/12/21 0128 BP: 157/83 137/90 BP Location: Right arm Right arm Patient Position: Lying Lying Pulse: 92 84 76 71 Resp: 24 Temp: TempSrc: SpO2: 96% 94% 95% 95% Weight: Height: No intake/output data recorded. No intake/output data recorded. Physical Exam: HEENT: Atraumatic, normocephalic. Extraocular movements intact. No sclerae icterus. No sinus tenderness. No oral lesions. Neck: Supple, no JVD or thyromegaly. Lungs: Diminished air entry. Occasional rhonchi, chest expansion symmetrical bilaterally. Heart: Regular rate and rhythm. S1 and S-2 audible. PMI not displaced. Abdomen: Soft , positive bowel sounds, no rebound rigidity no abdominal distention. Extremities: 1+ pitting bilateral lower extremity edema. Pulses palpable in upper lower extremities. HAULAGE ENGINE OPERATOR: Patient is alert orient 3. Able to move all 4 extremities. Musculoskeletal exam: no gross joint deformity. Lymphadenopathy: No cervical or axillary lymphadenopathy. Skin: No rash, warm. Lab/Radiology/Diagnostic Review: Recent Results (from the past 24 hour(s)) Pro B-type natriuretic peptide Collection Time: 09/11/21 2:46 PM Result Value Ref Range NT-proBNP 62 <=300 pg/mL CBC with auto differential Collection Time: 09/11/21 2:46 PM Result Value Ref Range WBC 12.4 (H) 3.8 - 9.9 K/cumm Hgb 13.5 11.9 - 15.5 g/dL Hct 42.9 35.6 - 45.5 % Plt 282 150 - 400 K/cumm MPV 9.5 9.1 - 12.3 fL RBC 4.66 3.90 - 5.20 M/cumm MCV 92.1 81.3 - 96.4 fL MCH 29.0 27.1 - 33.3 pg MCHC 31.5 (L) 32.3 - 35.7 g/dL RDW CV 13.8 11.1 - 14.9 % RDW SD 47.0 35.7 - 48.1 fL NRBC abs 0.00 0.00 - 0.01 K/cumm Comprehensive metabolic panel Collection Time: 09/11/21 2:46 PM Result Value Ref Range Sodium 138 135 - 145 mmol/L Potassium, pl 4.6 3.3 - 4.9 mmol/L Chloride 100 97 - 110 mmol/L CO2 26 22 - 32 mmol/L Anion gap 12 2 - 15 mmol/L BUN 15 8 - 25 mg/dL Creatinine 0.60 0.60 - 1.10 mg/dL Glucose 126 70 - 199 mg/dL Calcium 9.3 8.5 - 10.3 mg/dL Bilirubin, total 0.7 0.1 - 1.2 mg/dL Protein, pl 8.3 6.5 - 8.5 g/dL Albumin 3.9 3.5 - 5.0 g/dL Alk phos 88 40 - 130 Units/L ALT 22 7 - 45 Units/L AST 25 10 - 45 Units/L Troponin T high-sensitivity series (baseline, 2hr, 4hr, 6hr) Collection Time: 09/11/21 2:46 PM Result Value Ref Range Trop T hs 17 (H) <=14 ng/L Differential, auto Collection Time: 09/11/21 2:46 PM Result Value Ref Range Neutrophil abs 8.8 (H) 1.7 - 6.5 K/cumm Imm gran abs 0.1 0.0 - 0.1 K/cumm Lymphocyte abs 2.5 0.8 - 3.3 K/cumm Monocyte abs 0.8 0.2 - 0.8 K/cumm Eosinophil abs 0.2 0.0 - 0.5 K/cumm Basophil abs 0.0 0.0 - 0.1 K/cumm Neutrophil pct 71.0 % Imm gran pct 0.6 % Lymphocyte pct 20.1 % Monocyte pct 6.5 % Eosinophil pct 1.5 % Basophil pct 0.3 % eGFR Collection Time: 09/11/21 2:46 PM Result Value Ref Range eGFR 100 mL/min/1.73 m2 TSH reflex to free T4 Collection Time: 09/11/21 2:46 PM Result Value Ref Range TSH 2.20 0.30 - 4.20 mcIUnit/mL POCT troponin Collection Time: 09/11/21 2:49 PM Result Value Ref Range Troponin I Point of Care 0.00 0.00 - 0.08 ng/mL POCT creatinine for contrast evaluation Collection Time: 09/11/21 3:03 PM Result Value Ref Range Creatinine POC 0.70 0.60 - 1.10 mg/dL Urinalysis reflex to microscopic and culture Urine Collection Time: 09/11/21 3:09 PM Specimen: Urine Result Value Ref Range Color, ur Yellow Yellow Clarity, ur Clear Clear Specific gravity, ur 1.014 1.003 - 1.030 pH, urine 8.0 Protein, ur ql Negative Negative Glucose, ur ql Negative Negative Ketones, ur Negative Negative Bilirubin, ur Negative Negative Blood, ur 1+ (A) Negative Urobilinogen, ur <2.0 <2.0 mg/dL Nitrite, ur Negative Negative Leukocyte esterase, ur Negative Negative UA reflex comment Reflex to microscopic UA will be performed. Urinalysis, microscopic only Collection Time: 09/11/21 3:09 PM Result Value Ref Range WBC, ur 0-5 0 - 5 /HPF RBC, ur 3-5 (A) 0 - 2 /HPF Epithelial cells, squamous, ur 1-5 0 - 5 /HPF Culture Reflex Comment Reflex conditions for urine culture (WBC >10) not met. Troponin T high-sensitivity 4-hour Collection Time: 09/11/21 6:44 PM Result Value Ref Range Trop T hs 15 (H) <=14 ng/L Trop T hs delta -2 ng/L Trop T hs interp Insignificant Troponin T high-sensitivity 6-hour Collection Time: 09/11/21 11:06 PM Result Value Ref Range Trop T hs 16 (H) <=14 ng/L Trop T hs delta See Comment ng/L Trop T hs pct delta See Comment % Trop T hs interp See Comment CT Abdomen Pelvis WO Contrast Result Date: 09/11/2021 Narrative: EXAM DESCRIPTION: CT ABDOMEN PELVIS WO CONTRAST REASON FOR STUDY: Nausea/vomiting, Abdominal pain, acute, nonlocalized Generalized weakness with nausea today TECHNIQUE: CT scan of the abdomen and pelvis performed without intravenous and without oral contrast using helical scanning technique. Reconstructed coronal and sagittal MPR images reviewed. All images stored on PACS. Automated exposure control was used as a dose optimization technique for this examination. COMPARISON: None FINDINGS: The sensitivity for detection of visceral lesions is diminished without the use of intravenouscontrast; pathology may not be appreciable. LOWER CHEST: Please see separately dictated CT chest fro m same day LIVER: No identified cystic or solid masses on noncontrast imaging. GALLBLADDER: Surgically absent. BILE DUCTS: No intrahepatic or extrahepatic ductal dilatation. SPLEEN: No focal lesions.PANCREAS: No identified cystic or solid masses. No significant calcifications. No adjacent inflammation or peripancreatic fluid collections. Pancreatic duct not dilated. ADRENALS: Unremarkable. KIDNEYS/URINARY TRACT: No identified significant cystic or solid masses. No visualized stones. No hydronephrosis or hydroureter. Urinary bladder is unremarkable. GI: Evaluation the gastrointestinal tract is limited by lack of distention and bowel prep. Distal esophagus is unremarkable. Stomach and proxima l small bowel are unremarkable. No small bowel obstruction. Scattered diverticular disease without evidence of acute diverticulitis. PERITONEUM: No ascites or free air. RETROPERITONEUM: No mass or adenopathy. REPRODUCTIVE: No significant abnormality. VASCULATURE: No abdominal aortic aneurysm. MUSCUL OSKELETAL: Redemonstration of marked increased sclerosis about the bilateral sacroiliac joints withquestionable erosive change at the left sacroiliac joint, possibly related to inflammatory arthropathy. Postsurgical changes along the lower anterior abdominal wall. OTHER: No additional significant abnormality. IMPRESSION: No acute process in the abdomen pelvis. Redemonstration of marked sclerosisabout the bilateral sacroiliac joints with questionable erosion at the left sacroiliac joint, possibly related to inflammatory arthropathy. Please see additional findings as above. THIS IS AN ELECTRONICALLY VERIFIED FINAL REPORT 09/11/2021 10:39 PM - Electronically signed by Behrad Golshani M.D. Behrad Golshani M.D. BG: Report ID: [id number] Reading Location: [id number] CT Abdomen Pelvis WO Contrast Result Date: 08/16/2021 Narrative: EXAM DESCRIPTION: CT ABDOMEN PELVIS WO CONTRAST REASON FOR STUDY: Flank pain, kidney stone suspected, versus pyelo Pt was admitted to hospital on August 01 w/kidney infection. Was on IV antibiotics and discharged. Pt w/right flank pain today and states has had incontinence and urinary frequency. Onset yesterday. Pt concerned that infection is back. C/o nausea, no vomiting. Feels weak.TECHNIQUE: CT scan of the abdomen and pelvis performed without intravenous and without oral contrast using helical scanning technique. Reconstructed coronal and sagittal MPR images reviewed. All images stored on PACS. Automated exposure control was used as a dose optimization technique for this examination. COMPARISON: 08/01/2021 FINDINGS: The sensitivity for detection of visceral lesions is diminished without the use of intravenous contrast; pathology may not be appreciable. LOWER CHEST: Clustered pulmonary micro nodules within the medial left base measuring up to 0.5 cm. No effusion. Heavy coronary artery calcification. LIVER: No identified cystic or solid masses on noncontrast imaging. GALLBLADDER: Surgically absent. BILE DUCTS: No intrahepatic or extrahepatic ductal dilatation. SPLEEN: No focal lesions. PANCREAS: No identified cystic or solid masses. No significant calcifications. No adjacent inflammation or peripancreatic fluid collections. Pancreatic duct not dilated. ADRENALS: Unremarkable. KIDNEYS/URINARY TRACT: 1.3 cm cyst within the upper midpole of the right kidney. Minimal fullness of the right renal pelvis. No obstructing stone or hydronephrosis. No focal inflammatorychange. Bladder is partially decompressed, limiting evaluation. GI: Evaluation the gastrointestinal tract is limited by lack of distention and bowel prep. Distal esophagus is unremarkable. Stomach and proximal small bowel are unremarkable. No small bowel obstruction. Scattered diverticular disease without evidence of acute diverticulitis. Appendix [...] pelvis, similar as compared to prior. 2. No focal inflammation. 3. Colonic diverticulosis. 4. Redemonstration of clustered pulmonary micro nodules within the medial left base. 5. Please see additional findings as above. THIS IS AN ELECTRONICALLY VERIFIED FINAL REPORT 08/16/2021 12:47 PM - Electronically signed by Cleo Garza M.D. BG: Report ID: [id number] Reading Location: [id number] XR Knee Left 1 or 2 Views Result Date: 09/03/2021 Narrative: EXAM DESCRIPTION: XR KNEE LEFT 1 OR 2 VIEWS REASON FOR STUDY: pain, no known injury C/o left lower leg pain and swelling. Onset yesterday. Hx of dvt's and pe's. TECHNIQUE: AP and lateral radiographic views acquired of the left knee. COMPARISON: None FINDINGS: BONES/JOINTS: No fracture orbone destruction was seen. There is severe arthritis with asymmetric joint space narrowing and osteophyte formation. SOFT TISSUES: Unremarkable. OTHER: No other significant finding. IMPRESSION: 1. Severe arthritis 2. No acute osseous abnormality. THIS IS AN ELECTRONICALLY VERIFIED FINAL REPORT 09/03/2021 7:58 PM - Electronically signed by Sen Sy M.D. JANIYA: JANIYA Report ID: [id number] Reading Location: [id number] XR Tibia Fibula Left 2 Views Result Date: 09/03/2021 Narrative: EXAM DESCRIPTION: XR TIBIA FIBULA LEFT 2 VIEWS REASON FOR STUDY: pain, no known injury. 'Hx of cancer C/o left lower leg pain and swelling. Onset yesterday. Hx of dvt's and pe's. TECHNIQUE: Two views acquired of the left tibia and fibula. COMPARISON: None FINDINGS: BONES: No acute fracture. No suspicious bone lesions. Severe arthritis is seen in the knee. SOFT TISSUES: Unremarkable. OTHER: No other significant finding. IMPRESSION: No acute osseous abnormality. THIS IS AN ELECTRONICALLY VERIFIED FINAL REPORT 09/03/2021 7:59 PM - Electronically signed by Sen Sy M.D. JANIYA: JANIYA Report ID: [id number] Reading Location: [id number] CT Chest PE W Contrast Result Date: 09/11/2021 Narrative: EXAM DESCRIPTION: CT CHEST PE (CTA) W CONTRAST REASON FOR STUDY: Chest pain, PE suspected, low/intermediate prob, positive D-dimer Pt was supposed to get ultra sound for possible dvt last week but was unable to make the appointment. Pt woke last night feeling uneasy and heaviness in her chest and left arm pain. TECHNIQUE: CT angiogram of the chest performed [...] INTRAVENOUS SYRINGE injected via intravenous COMPARISON: CT pulmonary angiogram 11/11/2017. FINDINGS: VASCULATURE: Pulmonary arteries are appropriately opacified and no intraluminal filling defects are identified toindicate the presence of acute pulmonary emboli. The aorta is nonaneurysmal. The branching pattern of the great vessels is normal. LUNGS: No airspace consolidation is identified. Scattered subsegmental atelectasis within both lungs. PLEURA: No pleural effusion or evidence of a pneumothorax. MEDIASTI NUM/SHALA: Enlarged prevascular lymph node measures 1.7 x 1.4 cm (axial image 38). This is slightly larger than on the chest CT from 2018 when it measured 1.3 x 1.0 cm. Central airways are patent. HEART: Normal in size. There is no pericardial effusion. AXILLA: No adenopathy. CHEST WALL: Bilateral thyroid nodules some of which are calcified. Largest nodule on the right measures about 1.5 cm. Givennodule size and patient age, routine follow-up with thyroid ultrasound may be obtained. HARDWARE/LINES/TUBES: None. UPPER ABDOMEN: No acute abnormality. Cholecystectomy. MUSCULOSKELETAL: Moderate thoracic disc degeneration. No compression fracture. No aggressive bone or endplate destruction. OTHER: No significant abnormality. IMPRESSION: No evidence of an acute pulmonary embolus. Nonspecific mildly enlarged prevascular lymph node measuring 1.7 x 1.4 cm currently. Bilateral thyroid nodules, largest on the right measuring 1.5 cm. Routine follow-up with thyroid ultrasound may be obtained. THIS IS AN ELECTRONICALLY VERIFIED FINAL REPORT 09/11/2021 5:38 PM - Electronically signed by Giovanni Johnston D.O. : Report ID: [id number] Reading Location: [place] [id number] ASSESSMENT/PLAN: Principal Problem: Chest pain Resolved Problems: No resolved hospital problems. Full Code # chest pain rule out acute coronary syndrome Will do serial troponin and EKGs Consult cardiology service for further evaluation Ordered 2D echo with Doppler # hypertension continue current blood pressure medication blood pressure has been stable. Patient has been on lisinopril and metoprolol. # insulin-dependent diabetes mellitus. Continue current insulin regimen and medication she is taking at home. Monitor blood sugar closely. # history of breast cancer status post bilateral mastectomies and left axilla lymph node dissection. # GERD continue pantoprazole 40 mg daily and famotidine 20 mg b.i.d. patient has been taking both at home. # restless leg syndrome continue Requip # patient has a history of DVT and has been on Xarelto. # DVT prophylaxis. Continue Xarelto as patient was taking at home. Hospitalist team will follow closely. Voice recognition software [employer] may have been used to dictate and transcribe this document. Optical Manager variances may occur. Despite proofreading, typographical errors may occur. Drew Calero MD 09/12/2021 2:57 AM documented in this encounter Consult Notes * David Cowan MD - 09/12/2021 1:02 PM CDTAssociated Order(s): IP CONSULT TO CARDIOLOGY H&P Note Patient Name: Mohsen Marques Date of : 1955 Primary Physician: Justen Gale MD Admission Date: 09/11/2021 Length of Stay: 0 Reason for consult Chest pain Chief Complaint Chief Complaint Patient presents with ??? Shortness of Breath HPI Mohsen Marques is a 66 y.o. female presented to the hospital with an episode of nausea flushing shortness of breath associated with chest discomfort on the right side nonradiating moderate in severity with palpitations. This episode with her up from sleep yesterday morning and then was recurrentand decided to present to the ER. She has no precipitating or relieving factors. No prior similar episodes. Past Medical History Past Medical History: Diagnosis Date ??? Adiposity [...] (CMS/HCC) (HCC) ??? Sleep apnea Past Surgical History Past Surgical History: Procedure [...] SOFT TISSUE ABSCESS DRAIN N/A 10/24/2014 Medications Medications Prior to Admission Medication Sig Dispense Refill Last Dose ??? albuterol HFA (PROVENTIL HFA,VENTOLIN HFA,PROAIR HFA) 90 mcg/actuation inhaler INHALE 2 PUFFS INTO LUNGS BY MOUTH EVERY 4 HOURS NEEDED FOR WHEEZING OR SHORTNESS OF BREATH (Patient not taking: Reported on 09/12/2021) Not Taking at Unknown time ??? amitriptyline (ELAVIL) 25 mg tablet Take 25 mg by mouth nightly Past Week at Unknown time ??? BD Ultra-Fine Short Pen Needle 31 gauge x 5/16 needle USE 6 TIMES DAILY DIRECTED ??? blood glucose diagnostic ([employer] Ultra Test) strip 4 (four) times a day ??? exemestane (AROMASIN) 25 mg tablet Take 1 tablet (25 mg total) by mouth nightly 90 tablet 0 Past Week at Unknown time ??? HYDROcodone-acetaminophen (NORCO) 7.5-325 mg per tablet Take 1 tablet by mouth every 6 (six) hours Past Week at Unknown time ??? insulin glargine (LANTUS) 100 unit/mL injection Inject 40 Units under the skin daily. Takes in the morning (Patient taking differently: Inject 50 Units under the skin daily Takes in the morning) Past Week at Unknown time ??? insulin lispro (HumaLOG) 100 unit/mL injection Inject 12 Units under the skin 3 (three) times aday before meals. (Patient taking differently: Inject 22 Units under the skin 3 (three) times a daybefore meals) Past Week at Unknown time ??? mupirocin (BACTROBAN) 2 % ointment mupirocin 2 % topical ointment ??? naloxone (NARCAN) 4 mg/actuation spray,non-aerosol CALL 911. SPR CONTENTS OF ONE SPRAYER (0.1ML) INTO ONE NOSTRIL. REPEAT IN 2-3 MIN IF SYMPTOMS OF OPIOID EMERGENCY PERSIST, ALTERNATE NOSTRILS Unknown at Unknown time ??? oxybutynin (DITROPAN) 5 mg tablet take 1 tablet by oral route every day (Patient taking differently: Take 5 mg by mouth 2 (two) times a day) 0 0 Past Week at Unknown time ??? rivaroxaban (Xarelto) 20 mg tablet Take 1 tablet (20 mg total) by mouth daily 30 tablet 1 09/11/2021 at Unknown time ??? rOPINIRole (REQUIP) 5 mg tablet Take 5 mg by mouth nightly 09/11/2021 at Unknown time Allergies Allergies Allergen Reactions ??? Ceftriaxone Anaphylaxis R ??? Ceftriaxone Sodium Shortness of breath ??? Cephalosporins Anaphylaxis ??? Lorazepam Unknown Aggrevates restless leg syndrome ??? Latex Rash ??? Levofloxacin Hives and Unknown ??? Lisinopril Swelling ??? Piperacillin-Tazobactam Rash ??? Metoclopramide Hcl Unknown ??? Reslizumab Unknown ??? Ketorolac Itching ??? Metoclopramide Other (See comments) Other reaction(s): Hyperactive Restless leg syndrome ??? Oxycodone Vomiting ??? Pregabalin Other (See comments) ??? Trazodone Other (See comments) Shaky, restlessness, itching, throat swelling Family History Family History Problem Relation Age [...] history of restless leg syndrome; Social History Social History Socioeconomic History ??? [...] tobacco use Substance and Sexual Activity ??? Alcohol use: No ??? Drug use: Not on file ??? Sexual activity: Defer Other Topics Concern ??? Not on file Social History Narrative ??? Not on file Social Determinants of Health Financial Resource Strain: Not on file Food Insecurity: Not on file Transportation Needs: Not on file Physical Activity: Not on file Stress: Not on file Social Connections: Not on file Intimate Partner Violence: Not on file Housing Stability: Not on file Review of Systems Systems review are negative except as noted above Objective BP 132/83 (BP Location: Right arm, Patient Position: Lying) Pulse 81 Temp 36.3 ??C (97.4 ??F) (Oral) Resp 18 Ht 154.9 cm (5' 1 ) Wt 128.2 kg (282 lb 11.2 oz) SpO2 97% BMI 53.42 kg/m?? General appearance: no distress, no cyanosis, able to lie flat Eyes: anicteric sclera, no conjunctival hemorrhage; PERRLA HENT: Atraumatic; oropharynx clear with moist mucous membranes and no mucosal ulcerations Neck: Trachea midline; supple, no thyromegaly or lymphadenopathy, no JVD, no carotid bruit Lungs: Scar of prior mastectomies, rash on the skin, CTA, with normal respiratory effort and no intercostal retractions CV: RRR, apical impulse is barely palpable or normal, no thrill, no MRG, Abdomen: Soft, non-tender; no masses or HSM Extremities: No peripheral edema, intact pulses, no clubbing Skin: Normal temperature, turgor and texture; no rash, patachaie or ulcers or Sc nodules Psych: Appropriate affect, alert and oriented to person, place and time Neuro: no focal weakness and grossly intact cranial nerve Diagnostics Recent Results (from the past 24 hour(s)) Pro B-type natriuretic peptide Collection Time: 09/11/21 2:46 PM Result Value Ref Range NT-proBNP 62 <=300 pg/mL CBC with auto differential Collection Time: 09/11/21 2:46 PM Result Value Ref Range WBC 12.4 (H) 3.8 - 9.9 K/cumm Hgb 13.5 11.9 - 15.5 g/dL Hct 42.9 35.6 - 45.5 % Plt 282 150 - 400 K/cumm MPV 9.5 9.1 - 12.3 fL RBC 4.66 3.90 - 5.20 M/cumm MCV 92.1 81.3 - 96.4 fL MCH 29.0 27.1 - 33.3 pg MCHC 31.5 (L) 32.3 - 35.7 g/dL RDW CV 13.8 11.1 - 14.9 % RDW SD 47.0 35.7 - 48.1 fL NRBC abs 0.00 0.00 - 0.01 K/cumm Comprehensive metabolic panel Collection Time: 09/11/21 2:46 PM Result Value Ref Range Sodium 138 135 - 145 mmol/L Potassium, pl 4.6 3.3 - 4.9 mmol/L Chloride 100 97 - 110 mmol/L CO2 26 22 - 32 mmol/L Anion gap 12 2 - 15 mmol/L BUN 15 8 - 25 mg/dL Creatinine 0.60 0.60 - 1.10 mg/dL Glucose 126 70 - 199 mg/dL Calcium 9.3 8.5 - 10.3 mg/dL Bilirubin, total 0.7 0.1 - 1.2 mg/dL Protein, pl 8.3 6.5 - 8.5 g/dL Albumin 3.9 3.5 - 5.0 g/dL Alk phos 88 40 - 130 Units/L ALT 22 7 - 45 Units/L AST 25 10 - 45 Units/L Troponin T high-sensitivity series (baseline, 2hr, 4hr, 6hr) Collection Time: 09/11/21 2:46 PM Result Value Ref Range Trop T hs 17 (H) <=14 ng/L Differential, auto Collection Time: 09/11/21 2:46 PM Result Value Ref Range Neutrophil abs 8.8 (H) 1.7 - 6.5 K/cumm Imm gran abs 0.1 0.0 - 0.1 K/cumm Lymphocyte abs 2.5 0.8 - 3.3 K/cumm Monocyte abs 0.8 0.2 - 0.8 K/cumm Eosinophil abs 0.2 0.0 - 0.5 K/cumm Basophil abs 0.0 0.0 - 0.1 K/cumm Neutrophil pct 71.0 % Imm gran pct 0.6 % Lymphocyte pct 20.1 % Monocyte pct 6.5 % Eosinophil pct 1.5 % Basophil pct 0.3 % eGFR Collection Time: 09/11/21 2:46 PM Result Value Ref Range eGFR 100 mL/min/1.73 m2 TSH reflex to free T4 Collection Time: 09/11/21 2:46 PM Result Value Ref Range TSH 2.20 0.30 - 4.20 mcIUnit/mL POCT troponin Collection Time: 09/11/21 2:49 PM Result Value Ref Range Troponin I Point of Care 0.00 0.00 - 0.08 ng/mL POCT creatinine for contrast evaluation Collection Time: 09/11/21 3:03 PM Result Value Ref Range Creatinine POC 0.70 0.60 - 1.10 mg/dL Urinalysis reflex to microscopic and culture Urine Collection Time: 09/11/21 3:09 PM Specimen: Urine Result Value Ref Range Color, ur Yellow Yellow Clarity, ur Clear Clear Specific gravity, ur 1.014 1.003 - 1.030 pH, urine 8.0 Protein, ur ql Negative Negative Glucose, ur ql Negative Negative Ketones, ur Negative Negative Bilirubin, ur Negative Negative Blood, ur 1+ (A) Negative Urobilinogen, ur <2.0 <2.0 mg/dL Nitrite, ur Negative Negative Leukocyte esterase, ur Negative Negative UA reflex comment Reflex to microscopic UA will be performed. Urinalysis, microscopic only Collection Time: 09/11/21 3:09 PM Result Value Ref Range WBC, ur 0-5 0 - 5 /HPF RBC, ur 3-5 (A) 0 - 2 /HPF Epithelial cells, squamous, ur 1-5 0 - 5 /HPF Culture Reflex Comment Reflex conditions for urine culture (WBC >10) not met. Troponin T high-sensitivity 4-hour Collection Time: 09/11/21 6:44 PM Result Value Ref Range Trop T hs 15 (H) <=14 ng/L Trop T hs delta -2 ng/L Trop T hs interp Insignificant Troponin T high-sensitivity 6-hour Collection Time: 09/11/21 11:06 PM Result Value Ref Range Trop T hs 16 (H) <=14 ng/L Trop T hs delta See Comment ng/L Trop T hs pct delta See Comment % Trop T hs interp See Comment Troponin T high-sensitivity Collection Time: 09/12/21 5:33 AM Result Value Ref Range Trop T hs 17 (H) <=14 ng/L POCT glucose Collection Time: 09/12/21 9:02 AM Result Value Ref Range Glucose, POC 156 70 - 199 mg/dL Glucose comment 1 Use This Result POCT glucose Collection Time: 09/12/21 12:51 PM Result Value Ref Range Glucose, POC 187 70 - 199 mg/dL No results found. Results for orders placed or performed during the hospital encounter of 03/17/18 ECG 12 lead Result Value Ref Range Patient age 62 years Interpretation Text SINUS RHYTHMNORMAL ECGPREVIOUS TRACIN02/24/2018 03.20No significant changes noted Ventricular Rate EKG/Min 78 /min P Wave Duration 111 ms QRS-Interval (MSEC) 81 ms AR-Interval (MSEC) 131 ms QT Interval 354 ms QTc 385 ms QTC Interval ms P [place] 9 deg QRS [place] 6 deg T [place] 32 deg Results for orders placed during the hospital encounter of 07/31/17 Transthoracic Echo Complete W Doppler/CF Normal left ventricular systolic function with no focal wall motion abnormalities. Normal left ventricular wall thickness. Normal left ventricular diastolic function. Ejection fraction is visually estimated at 60 %. Mild mitral annular calcification. Mild pulmonary hypertension based on right ventricular systolic pressure. Estimated peak RVSP is 40 mmHg. Mild tricuspid regurgitation. EKG: SR CATH 2013: Normal Coronary angiogram Assessment/Plan 66 y.o. female seen for Atypical chest pain negative cardiac enzymes and no dynamic EKG changes Hypertension diabetes History of breast cancer History of DVT on Xarelto PLAN: Transthoracic echocardiogram Rule out DVT PE Anticoagulation per primary team Care plan discussed with the patient. David Cowan MD 09/12/2021 1:07 PM documented in this encounter Nursing Notes * Iliana Lara RN - 09/14/2021 4:42 PM CDT Patient discharged home with belongings. All questions answered and paperwork signed. Patient transferred out via wheelchair to ED parking lot by nursing staff. documented in this encounter ED Notes * Shanthi Valiente RN - 09/12/2021 4:[address] Calero at this time for clarification of Troponin order. Shanthi aVliente RN 09/12/21 0432 * Kirit Everett DO - 09/11/2021 7:25 PM CDTAssociated Order(s): ECG 12 lead HPI Chief Complaint Patient presents with ??? Shortness of Breath 7:25 PM Mohsen Marques is a 66 y.o. female with PMHx DM, breast cancer, blood clots, CHF, and HTN presenting to the ED c/o generalized weakness. Pt reports waking up twice last night feeling sick, weak, and shaky. Pt endorses nausea. Pt states her chest felt funny, and it felt like her heartwas not beating right. Pt endorses twinges of pain across her chest. Pt reports ambulating and was able to return to sleep. Pt states waking up again around 7 AM and still felt sick. Pt reports eating breakfast and taking her medication earlier today when her symptoms returned. Pt also endorses SOB and feeling hot like she had a fever. Pt reports the left side of her body, including the middle of her leg, are puffy. Pt denies chills and heartburn. No other modifying factors or associated symptoms [...] Drug use: No Current Facility-Administered Medications: ??? HYDROcodone-acetaminophen (NORCO) 5-325 mg per tablet 1 tablet, 1 tablet, oral, Q4H PRN, 1 tablet at 09/12/21 0306 ??? ondansetron ODT (ZOFRAN-ODT) disintegrating tablet 4 mg, 4 mg, oral, Q6H PRN OR ondansetron(ZOFRAN) injection 4 mg, 4 mg, intravenous, Q6H PRN ??? rOPINIRole (REQUIP) tablet 5 mg, 5 mg, oral, Nightly Current Outpatient Medications: ??? acetaminophen-codeine (TYLENOL with CODEINE #3) 300-30 mg per tablet ??? albuterol HFA (PROVENTIL HFA,VENTOLIN HFA,PROAIR HFA) 90 mcg/actuation inhaler ??? amitriptyline (ELAVIL) 25 mg tablet ??? aspirin 325 mg tablet ??? baclofen (LIORESAL) 10 mg tablet ??? BD Ultra-Fine Short Pen Needle 31 gauge x 5/16 needle ??? blood glucose diagnostic ([employer] Ultra Test) strip ??? clonazePAM (KlonoPIN) 1 mg tablet ??? clotrimazole-betamethasone (LOTRISONE) cream ??? dapagliflozin (FARXIGA) 5 mg tablet ??? dexAMETHasone (DECADRON) 4 mg tablet ??? dextromethorphan (DELSYM) syrup 30 mg/5 mL ??? DULoxetine DR (CYMBALTA) 20 mg capsule ??? exemestane (AROMASIN) 25 mg tablet ??? famotidine (PEPCID) 20 mg tablet ??? gabapentin (NEURONTIN) 300 mg capsule ??? HYDROcodone-acetaminophen (NORCO) 5-325 mg per tablet ??? HYDROcodone-acetaminophen (NORCO) 7.5-325 mg per tablet ??? hydrOXYzine (ATARAX) 25 mg tablet ??? ibuprofen (ADVIL,MOTRIN) 600 mg tablet ??? insulin glargine (LANTUS) 100 unit/mL injection ??? insulin lispro (HumaLOG) 100 unit/mL injection ??? lisinopril (PRINIVIL,ZESTRIL) 20 mg tablet ??? metoprolol tartrate (LOPRESSOR) 25 mg immediate release tablet ??? mirabegron ER (MYRBETRIQ) 25 mg tablet extended release 24 hr ??? morphine (MSIR) 15 mg tablet ??? mupirocin (BACTROBAN) 2 % ointment ??? naloxone (NARCAN) 4 mg/actuation spray,non-aerosol ??? ondansetron ODT (ZOFRAN-ODT) 4 mg disintegrating tablet ??? oxybutynin (DITROPAN) 5 mg tablet ??? pantoprazole DR (PROTONIX) 40 mg EC tablet ??? prochlorperazine (COMPAZINE) 10 mg tablet ??? rivaroxaban (Xarelto) 20 mg tablet ??? rOPINIRole (REQUIP) 5 mg tablet ??? selenium sulfide 2.5 % lotion ??? sucralfate (CARAFATE) 1 gram tablet Review of Systems Review of Systems Constitutional: Positive for fever. Negative for chills. HENT: Negative for ear pain and sore [...] Triage Vitals Temp Pulse Resp BP SpO2 09/11/21 1436 09/11/21 1436 09/11/21 1436 09/11/21 1436 09/11/21 1436 36.8 ??C (98.2 ??F) 90 18 (!) 184/98 99 % Temp src Heart Rate Source Patient Position BP Location FiO2 (%) 09/11/21 1436 09/11/21 1716 09/11/21 1716 09/11/21 1716 -- Temporal Monitor Lying Left arm Height Height Method Weight Weight Method 09/11/21 1436 09/11/21 1436 09/11/21 1436 09/11/21 1436 1.549 m (5' 1 ) Stated 130.5 kg (287 lb 11.2 oz) Standing scale Physical Exam Vitals and [...] and oriented to person, place, and time. ECG 12 lead Date/Time: 09/11/2021 7:26 PM Performed by: Kirit Everett DO Authorized by: Sonali Snell NP Rate: ECG rate: 87 ECG rate assessment: normal Rhythm: Rhythm: sinus rhythm Comments: LAD, STs and Ts are normal. Borderline EKG. [facility] Labs Reviewed URINALYSIS AND REFLEX TO MICROSCOPIC AND CULTURE - Abnormal Result Value Color, ur Yellow Clarity, ur Clear Specific gravity, ur 1.014 pH, urine 8.0 Protein, ur ql Negative Glucose, ur ql [...] tendency for uric acid stone formation. Source: Welch Dennoo.Last revised 05-04-2017 CBC WITH AUTO DIFFERENTIAL - Abnormal WBC 12.4 (*) Hgb 13.5 Hct 42.9 Plt 282 MPV 9.5 RBC 4.66 MCV 92.1 MCH 29.0 MCHC 31.5 (*) RDW CV 13.8 RDW SD 47.0 NRBC abs 0.00 TROPONIN T HIGH-SENSITIVITY SERIES (BASELINE, 2HR, 4HR, 6HR) - Abnormal Trop T hs 17 (*) DIFFERENTIAL AUTO - Abnormal Neutrophil abs 8.8 (*) Imm gran abs 0.1 Lymphocyte abs 2.5 Monocyte abs 0.8 Eosinophil abs 0.2 Basophil abs 0.0 Neutrophil pct 71.0 Imm gran pct 0.6 Lymphocyte pct 20.1 Monocyte pct 6.5 Eosinophil pct 1.5 Basophil pct 0.3 TROPONIN T HIGH-SENSITIVITY 4-HR - Abnormal Trop T hs 15 (*) Trop T hs delta -2 Trop T hs interp Insignificant TROPONIN T HIGH-SENSITIVITY 6-HOUR - Abnormal Trop T hs 16 (*) Trop T hs delta See Comment Trop T hs pct delta See Comment Trop T hs interp See Comment URINALYSIS, MICROSCOPIC ONLY - Abnormal WBC, ur 0-5 RBC, ur 3-5 (*) Epithelial cells, squamous, ur 1-5 Culture Reflex Comment Value: Reflex conditions for urine culture (WBC >10) not met. TROPONIN T HIGH-SENSITIVITY - Abnormal Trop T hs 17 (*) PRO B-TYPE NATRIURETIC PEPTIDE NT-proBNP 62 COMPREHENSIVE METABOLIC PANEL Sodium 138 Potassium, pl 4.6 Chloride 100 CO2 26 Anion gap 12 BUN 15 Creatinine 0.60 Glucose 126 Calcium 9.3 Bilirubin, total 0.7 Protein, pl 8.3 Albumin 3.9 Alk phos 88 ALT 22 AST 25 EGFR eGFR 100 TSH REFLEX TO FREE T4 TSH 2.20 POCT CREATININE FOR CONTRAST EVALUATION Creatinine POC 0.70 POCT CREATININE FOR CONTRAST EVALUATION POCT TROPONIN DEVICE POCT TROPONIN DEVICE Troponin I Point of Care 0.00 CT Abdomen Pelvis WO Contrast EXAM DESCRIPTION: CT ABDOMEN PELVIS WO CONTRAST REASON FOR STUDY: Nausea/vomiting, Abdominal pain, acute, nonlocalized Generalized weakness with nausea today TECHNIQUE: CT scan of the abdomen and pelvis performed without intravenous and without oral contrast using helical scanning technique. Reconstructed coronal and sagittal MPR images reviewed. All images stored on PACS. Automated exposure control was used as a dose optimization technique for this examination. COMPARISON: None FINDINGS: The sensitivity for detection of visceral lesions is diminished without the use of intravenous contrast; pathology may not be appreciable. LOWER CHEST: Please see separately dictated CT chest from same day LIVER: No identified cystic or solid masses on noncontrast imaging. GALLBLADDER: Surgically absent. BILE DUCTS: No intrahepatic or extrahepatic ductal dilatation. SPLEEN: No focal lesions. PANCREAS: No identified cystic or solid masses. No significant calcifications. No adjacent inflammation or peripancreatic fluid collections. Pancreatic duct not dilated. ADRENALS: Unremarkable. KIDNEYS/URINARY TRACT: No identified significant cystic or solid masses. No visualized stones. No hydronephrosis or hydroureter. Urinary bladder is unremarkable. GI: Evaluation the gastrointestinal tract is limited by lack of distention and bowel prep. Distal esophagus is unremarkable. Stomach and proximal small bowel are unremarkable. No small bowel obstruction. Scattered diverticular disease without evidence of acute diverticulitis. PERITONEUM: No ascites or free air. RETROPERITONEUM: No mass or adenopathy. REPRODUCTIVE: No significant abnormality. VASCULATURE: No abdominal aortic aneurysm. MUSCULOSKELETAL: Redemonstration of marked increased sclerosis about the bilateral sacroiliac joints with questionable erosive change at the left sacroiliac joint, possibly related to inflammatory arthropathy. Postsurgical changes along the lower anterior abdominal wall. OTHER: No additional significant abnormality. IMPRESSION: No acute process in the abdomen pelvis. Redemonstration of marked sclerosis about the bilateral sacroiliac joints with questionable erosion at the left sacroiliac joint, possibly related to inflammatory arthropathy. Please see additional findings as above. THIS IS AN ELECTRONICALLY VERIFIED FINAL REPORT 09/11/2021 10:39 PM - Electronically signed by Cleo Garza M.D. BG: Report ID: [id number] Reading Location: [place] [address] CT Chest PE W Contrast EXAM DESCRIPTION: CT CHEST PE (CTA) W CONTRAST REASON FOR STUDY: Chest pain, PE suspected, low/intermediate prob, positive D-dimer Pt was supposed to get ultra sound for possible dvt last week but was unable to make the appointment. Pt woke last night feeling uneasy and heaviness in her chest and left arm pain. TECHNIQUE: CT angiogram of the chest performed [...] INTRAVENOUS SYRINGE injected via intravenous COMPARISON: CT pulmonary angiogram 11/11/2017. FINDINGS: VASCULATURE: Pulmonary arteries are appropriately opacified and no intraluminal filling defects are identified to indicate the presence of acute pulmonary emboli. The aorta is nonaneurysmal. The branching pattern of the great vessels is normal. LUNGS: No airspace consolidation is identified. Scattered subsegmental atelectasis within both lungs. PLEURA: No pleural effusion or evidence of a pneumothorax. MEDIASTINUM/SHALA: Enlarged prevascular lymph node measures 1.7 x 1.4 cm (axial image 38). This is slightly larger than on the chest CT from 2018 when it measured 1.3 x 1.0 cm. Central airways are patent. HEART: Normal in size. There is no pericardial effusion. AXILLA: No adenopathy. CHEST WALL: Bilateral thyroid nodules some of which are calcified. Largest nodule on the right measures about 1.5 cm. Given nodule size and patient age, routine follow-up with thyroid ultrasound may be obtained. HARDWARE/LINES/TUBES: None. UPPER ABDOMEN: No acute abnormality. Cholecystectomy. MUSCULOSKELETAL: Moderate thoracic disc degeneration. No compression fracture. No aggressive bone or endplate destruction. OTHER: No significant abnormality. IMPRESSION: No evidence of an acute pulmonary embolus. Nonspecific mildly enlarged prevascular lymph node measuring 1.7 x 1.4 cm currently. Bilateral thyroid nodules, largest on the right measuring 1.5 cm. Routine follow-up with thyroid ultrasound may be obtained. THIS IS AN ELECTRONICALLY VERIFIED FINAL REPORT 09/11/2021 5:38 PM - Electronically signed by Giovanni Johnston D.O. : Report ID: [id number] Reading Location: [id number] BP 139/62 (BP Location: Right arm, Patient Position: Lying) Pulse 73 Temp 36.8 ??C (98.2 ??F) (Temporal) Resp 19 Ht 154.9 cm (5' 1 ) Wt 130.5 kg (287 lb 11.2 oz) SpO2 97% BMI 54.36 kg/m?? [facility] ED Course as of 09/12/21 0609 Time: 09/11 1942 Pt given GI cocktail Al & mag hydroxide simethicone-lidocaine oral suspension mixture. -- no improvement in symptoms - tried po challenge and pt had worsening chest pain and nausea again-- not able to eat. - CE neg---CT PE and abd/pelvis negative Will admit pt for further eval of chest pain and nausea- unclear cause at this time and not going away Talked to Dr. Calero agrees to admit pt to tele Clinical Impression: Chest pain, unspecified type Nausea and vomiting, unspecified vomiting type Type 2 diabetes mellitus without complication, unspecified whether long winder tender insulin use (HCC) Hypertension, unspecified type History of DVT (deep vein thrombosis) Prince Andersen scribed for Karlos Beth DO in the doctor's presence. I electronically signed this note at 6:09 AM on 09/12/2021. I, Karlos Beth DO , have personally performed the services described in the documentation , reviewed the documentation, as recorded by the scribe in my presence, and it accurately and completelyrecords my words and actions. Kirit Everett DO 09/12/21611 * Janelle Goncalves RN - 09/11/2021 2:34 PM CDT Pt was supposed to get ultra sound for possible dvt last week but was unable to make the appointment. Pt woke last night feeling uneasy and heaviness in her chest and left arm pain. documented in this encounter Miscellaneous Notes * Plan of Care - Iliana Lara RN - 09/14/2021 2:22 PM CDT Problem: Health Behavior: Goal: Understanding of [...] injury in home environment Outcome: Progressing Problem: Activity: Goal: Mobility will improve Outcome: Progressing Problem: Lack of Knowledge: Goal: Understanding of ways to prevent future skin breakdown will improve Outcome: Progressing Goal: Ability to identify appropriate dietary choices will improve Outcome: Progressing Problem: Nutritional: Goal: Dietary intake will improve Outcome: Progressing Goal: Ability to maintain a balanced intake and output will improve Outcome: Progressing Problem: Skin Integrity: Goal: Risk for impaired skin integrity will decrease Outcome: Progressing Goal: Ability to demonstrate warm and dry skin will improve Outcome: Progressing Goal: Circulation will improve to fullest extent possible Outcome: Progressing Problem: Lack of Knowledge: Goal: Knowledge of disease or condition and prescribed therapeutic regimen will improve Outcome: Progressing Problem: Coping: Goal: Level of anxiety will decrease Outcome: Progressing Problem: Sensory: Goal: Pain level will decrease Outcome: Progressing Problem: Activity: Goal: Risk for activity intolerance will decrease Outcome: Progressing Problem: Lack of Knowledge: Goal: Knowledge of diagnostic tests will improve Outcome: Progressing Goal: Knowledge of disease or condition will improve Outcome: Progressing Goal: Knowledge of safety precautions will improve Outcome: Progressing Goal: Knowledge of the prescribed therapeutic regimen will improve Outcome: Progressing Problem: Health Behavior: Goal: Ability to state signs and symptoms to report to health care provider will improve Outcome: Progressing Problem: Physical Regulation: Goal: Ability to maintain clinical measurements within normal limits will improve Outcome: Progressing Problem: Infection Risk: Goal: Will remain free from infection Outcome: Progressing Problem: Safety: Goal: Ability to remain free from injury will improve Outcome: Progressing Goal: Will remain free from falls Outcome: Progressing Problem: Self-Care: Goal: Ability to participate in self-care as condition permits will improve Outcome: Progressing Problem: Sensory: Goal: Pain level will decrease Outcome: Progressing Goal: Ability to develop a pain control plan will improve Outcome: Progressing Problem: Skin Integrity: Goal: Risk for impaired skin integrity will decrease Outcome: Progressing Problem: Tissue Perfusion: Goal: Risk factors for ineffective tissue perfusion will decrease Outcome: Progressing Goals: Clinical Goals for the Shift: Maintain safety, monitor for chest pain, monitor Vs * Plan of Care - Bubba Campbell RN - 09/14/2021 4:51 AM CDT Goals: Clinical Goals for the Shift: Maintain safety, monitor for chest pain, monitor Vs Summary: Assessment of patient???s baseline is established at the beginning of the shift in flowsheets. Patient reassessed per order, unexpected findings and/or deviations from baseline are captured in flowsheets. Frequent safety checks and comfort rounds provided. Orders and/or nursing care completed as indicated. Patient monitored for response to interventions and treatments as documented in flowsheets.Pt has had pain managed with medications through this shift. She has had no other complaints or complications. She has been resting comfortably using cpap through the night. 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 Education provided includes Clinical Condition/Disease Processes: Chest pain and Stress Testing, Fall Prevention, and Pain Management. Patient and/or automotive leasing sales representative Verbalizes understanding. Will continue to monitor. * Plan of Care - Farzaneh Valero RN - 09/13/2021 4:31 PM CDT Goals: Clinical Goals for the Shift: Maintain safety, monitor for chest pain, monitor Vs Summary: echo completed. Stress test tomorrow. Prn pain meds for back pain. Problem: Health Behavior: Goal: Understanding of discharge [...] injury in home environment Outcome: Progressing Problem: Activity: Goal: Mobility will improve Outcome: Progressing Problem: Lack of Knowledge: Goal: Understanding of ways to prevent future skin breakdown will improve Outcome: Progressing Goal: Ability to identify appropriate dietary choices will improve Outcome: Progressing Problem: Nutritional: Goal: Dietary intake will improve Outcome: Progressing Goal: Ability to maintain a balanced intake and output will improve Outcome: Progressing Problem: Skin Integrity: Goal: Risk for impaired skin integrity will decrease Outcome: Progressing Goal: Ability to demonstrate warm and dry skin will improve Outcome: Progressing Goal: Circulation will improve to fullest extent possible Outcome: Progressing Problem: Lack of Knowledge: Goal: Knowledge of disease or condition and prescribed therapeutic regimen will improve Outcome: Progressing Problem: Coping: Goal: Level of anxiety will decrease Outcome: Progressing Problem: Sensory: Goal: Pain level will decrease Outcome: Progressing Problem: Activity: Goal: Risk for activity intolerance will decrease Outcome: Progressing Problem: Lack of Knowledge: Goal: Knowledge of diagnostic tests will improve Outcome: Progressing Goal: Knowledge of disease or condition will improve Outcome: Progressing Goal: Knowledge of safety precautions will improve Outcome: Progressing Goal: Knowledge of the prescribed therapeutic regimen will improve Outcome: Progressing Problem: Health Behavior: Goal: Ability to state signs and symptoms to report to health care provider will improve Outcome: Progressing Problem: Physical Regulation: Goal: Ability to maintain clinical measurements within normal limits will improve Outcome: Progressing Problem: Safety: Goal: Ability to remain free from injury will improve Outcome: Progressing Goal: Will remain free from falls Outcome: Progressing Problem: Infection Risk: Goal: Will remain free from infection Outcome: Progressing Problem: Self-Care: Goal: Ability to participate in self-care as condition permits will improve Outcome: Progressing Problem: Sensory: Goal: Pain level will decrease Outcome: Progressing Goal: Ability to develop a pain control plan will improve Outcome: Progressing Problem: Skin Integrity: Goal: Risk for impaired skin integrity will decrease Outcome: Progressing Problem: Tissue Perfusion: Goal: Risk factors for ineffective tissue perfusion will decrease Outcome: Progressing * Plan of Care - Heaven Wilkinson RN - 09/13/2021 4:49 AM CDT Problem: Health Behavior: Goal: Understanding [...] Outcome: Progressing Problem: Lack of Knowledge: Goal: Understanding of ways to prevent future skin breakdown will improve Outcome: Progressing Goal: Ability to identify appropriate dietary choices will improve Outcome: Progressing Problem: Lack of Knowledge: Goal: Knowledge of disease or condition and prescribed therapeutic regimen will improve Outcome: Progressing Problem: Coping: Goal: Level of anxiety will decrease Outcome: Progressing Problem: Sensory: Goal: Pain level will decrease Outcome: Progressing Goals: Clinical Goals for the Shift: Maintain safety, monitor for chest pain, monitor Vs Summary: safety maintained; prn norco for chronic back pain; denies CP; NSR on monitor; VS stable * Plan of Care - Trudi Cooley RN - 09/12/2021 5:09 PM CDT Problem: Health Behavior: Goal: Understanding of [...] injury in home environment Outcome: Progressing Problem: Activity: Goal: Mobility will improve Outcome: Progressing Problem: Lack of Knowledge: Goal: Understanding of ways to prevent future skin breakdown will improve Outcome: Progressing Goal: Ability to identify appropriate dietary choices will improve Outcome: Progressing Problem: Nutritional: Goal: Dietary intake will improve Outcome: Progressing Goal: Ability to maintain a balanced intake and output will improve Outcome: Progressing Problem: Skin Integrity: Goal: Risk for impaired skin integrity will decrease Outcome: Progressing Goal: Ability to demonstrate warm and dry skin will improve Outcome: Progressing Goal: Circulation will improve to fullest extent possible Outcome: Progressing Problem: Lack of Knowledge: Goal: Knowledge of disease or condition and prescribed therapeutic regimen will improve Outcome: Progressing Problem: Coping: Goal: Level of anxiety will decrease Outcome: Progressing Problem: Sensory: Goal: Pain level will decrease Outcome: Progressing Problem: Activity: Goal: Risk for activity intolerance will decrease Outcome: Progressing Problem: Lack of Knowledge: Goal: Knowledge of diagnostic tests will improve Outcome: Progressing Goal: Knowledge of disease or condition will improve Outcome: Progressing Goal: Knowledge of safety precautions will improve Outcome: Progressing Goal: Knowledge of the prescribed therapeutic regimen will improve Outcome: Progressing Problem: Health Behavior: Goal: Ability to state signs and symptoms to report to health care provider will improve Outcome: Progressing Problem: Physical Regulation: Goal: Ability to maintain clinical measurements within normal limits will improve Outcome: Progressing Problem: Infection Risk: Goal: Will remain free from infection Outcome: Progressing Problem: Safety: Goal: Ability to remain free from injury will improve Outcome: Progressing Goal: Will remain free from falls Outcome: Progressing Problem: Self-Care: Goal: Ability to participate in self-care as condition permits will improve Outcome: Progressing Problem: Sensory: Goal: Pain level will decrease Outcome: Progressing Goal: Ability to develop a pain control plan will improve Outcome: Progressing Problem: Skin Integrity: Goal: Risk for impaired skin integrity will decrease Outcome: Progressing Problem: Tissue Perfusion: Goal: Risk factors for ineffective tissue perfusion will decrease Outcome: Progressing Goals: Clinical Goals for the Shift: Maintain safety, monitor for chest pain, monitor Vs Summary: * ED Triage Provider Note - Sonali Snell NP - 09/11/2021 4:44 PM CDT This is a 66-year-old female patient with a past medical history of breast cancer. The patient cameto the emergency room complaining of shortness of breath and left chest pain. She also has lower extremity edema and stated that she was supposed to be checked for DVTs. In the patient is currently on anticoagulation. documented in this encounter Plan of Treatment Not on file documented as of this encounter Procedures Procedure Name Priority Date/Time Associated Diagnosis Comments POCT GLUCOSE DEVICE Routine 09/14/2021 2 :27 PM CDT NM MPI SPECT (REST AND/OR STRESS) MULTIPLE STUDIES IP Routine 09/14/2021 11:11 AM CDT STRESS TEST FOR DUAL READ IP Routine 09/14/2021 11:11 AM CDT POCT GLUCOSE DEVICE Routine 09/14/2021 1 1:05 AM CDT POCT GLUCOSE DEVICE Routine 09/14/2021 7 :23 AM CDT EGFR Routine 09/14/2021 3:40 AM CDT DIFFERENTIAL AUTO Routine 09/14/2021 3:4 0 AM CDT CBC WITH AUTO DIFFERENTIAL Routine 09/14/2021 3:40 AM CDT BASIC METABOLIC PANEL Routine 09/14/2021 3:40 AM CDT EGFR Routine 09/13/2021 5:13 PM CDT DIFFERENTIAL AUTO Routine 09/13/2021 5:1 3 PM CDT POCT GLUCOSE DEVICE Routine 09/13/2021 5 :13 PM CDT CBC WITH AUTO DIFFERENTIAL Routine 09/13/2021 5:13 PM CDT COMPREHENSIVE METABOLIC PANEL Routine 09/13/2021 5:13 PM CDT TRANSTHORACIC ECHO (TTE) COMPLETE W DOPPLER/CF W CONTRAST Routine 09/13/2021 3:24 PM CDT POCT GLUCOSE DEVICE Routine 09/13/2021 1 2:30 PM CDT POCT GLUCOSE DEVICE Routine 09/13/2021 9 :03 AM CDT POCT GLUCOSE DEVICE Routine 09/12/2021 9 :00 PM CDT POCT GLUCOSE DEVICE Routine 09/12/2021 5 :04 PM CDT POCT GLUCOSE DEVICE Routine 09/12/2021 1 2:51 PM CDT POCT GLUCOSE DEVICE Routine 09/12/2021 9 :02 AM CDT TROPONIN T HIGH-SENSITIVITY STAT 09/12/2021 5:33 AM CDT ECG 12-LEAD STAT 09/12/2021 4:46 AM CDT TROPONIN T HIGH-SENSITIVITY 6-HOUR Timed 09/11/2021 11:[address] ABDOMEN PELVIS WO CONTRAST ED 09/11/2021 10:10 PM CDT US VEIN DUPLEX LOWER EXTREMITY BILATERAL COMPLETE ED 09/11/2021 7:00 PM CDT TROPONIN T HIGH-SENSITIVITY 4-HR Timed 09/11/2021 6:[address] CHEST PE W CONTRAST ED 09/11/2021 4:48 PM CDT URINALYSIS AND REFLEX TO MICROSCOPIC AND CULTURE STAT 09/11/2021 3:09 PM CDT URINALYSIS, MICROSCOPIC ONLY STAT 09/11/2021 3:09 PM CDT POCT CREATININE FOR CONTRAST EVALUATION Routine 09/11/2021 3:03 PM CDT ECG 12-LEAD STAT 09/11/2021 2:53 PM CDT POCT TROPONIN DEVICE Routine 09/11/2021 2:49 PM CDT TROPONIN T HIGH-SENSITIVITY SERIES (BASELINE, 2HR, 4HR, 6HR) STAT 09/11/2021 2:46 PM CDT EGFR STAT 09/11/2021 2:46 PM CDT DIFFERENTIAL AUTO STAT 09/11/2021 2:4 6 PM CDT PRO B-TYPE NATRIURETIC PEPTIDE STAT 09/11/2021 2:46 PM CDT THYROID FUNCTION CASCADE Add-On 09/11/2021 2:46 PM CDT CBC WITH AUTO DIFFERENTIAL STAT 09/11/2021 2:46 PM CDT COMPREHENSIVE METABOLIC PANEL STAT 09/11/2021 2:46 PM CDT documented in this encounter Results * POCT glucose (09/14/2021 2:27 PM CDT) [facility] Glucose, POC 112 70 - 199 mg/dL MARY JANE PHAM Comment:Testing performed by : [address] [address] Glucose comment 1 Use This Result MARY JANE PHAM Comment:Testing performed by : [facility], [address] [place] [address]., [address] Blood 09/14/2021 2:27 PM CDT 09/14/2021 2:27 PM CDT Antonella Christianson MD LAB POCT ORDERABLES - DEVICE F inal Result MARY JANE PHAM [phone] [facility] Department [place] [address] * Stress Test for Myocardial Perfusion (09/14/2021 11:11 AM CDT) Anatomical Region Laterality Modality Nuclear Medicine 09/14/2021 Narrative 09/14/2021 9:48 AM CDT Sequent Job ID: [id number] Sequent Document ID: [id number] Dictated date/time: [id number] LEXISCAN MYOVIEW ?? Patient was brought into stress lab and injected Lexiscan according to protocol. ?? Resting heart rate 76 beats per minute, blood pressure 156/87. ??EKG sinus rhythm, otherwise unremarkable. ??Post infusion heart rate 98 beats per minute, blood pressure 135/75. ??EKG sinus rhythm with nonspecific ST-T wave changes in lateral leads. IMPRESSION 1. Overall test was tolerated well. 2. No evidence of myocardial ischemia by EKG criteria. 3. Separate Myoview report will be dictated by Radiology. Job ID/Internal Job ID: ??[id number] Andrew Rani Marx MD CV STRESS PROCEDURES Fi nal Result * NM MPI SPECT (Rest and/or Stress) Multiple Studies (09/14/2021 11:11 AM CDT) Anatomical Region Laterality Modality Body N/A Nuclear Medicine 09/14/2021 11:4 9 AM CDT Narrative 09/14/2021 11:55 AM CDT EXAM DESCRIPTION: ?? NM MPI SPECT (REST AND/OR STRESS) MULTIPLE STUDIES REASON FOR STUDY: Chest pain 4 days ago. RADIOPHARMACEUTICAL: Rest: ??10.5 ??mCi Tc-99m tetrofosmin Pharmacologic Stress: ??30.1 ??mCi Tc-99m tetrofosmin Injection site: ??Right antecubital vein ??IV site TECHNIQUE: Standard myocardial perfusion images were obtained after resting tracer injection. ??Subsequently, an intravenous infusion of ??0.4 mg Lexiscan ?? was performed. ??Standard myocardial perfusion images were obtained after tracer injection at the peak effect of the drug. COMPARISON: None available FINDINGS: Image quality is adequate at rest and adequate at stress. Small area of mildly reduced perfusion in the distal anterior wall of the left ventricle at stress with normal perfusion at rest. The left ventricular cavity size is ??normal. Gated tomographic images demonstrate normal wall motion and wall thickening with a left ventricular ejection fraction of ??74 % poststress (normal >45%). ?? IMPRESSION: Small area of ischemia in the distal anterior wall of left ventricle. Normal left ventricular ejection fraction of ??74 % poststress. Normal wall motion. ?? THIS IS AN ELECTRONICALLY VERIFIED FINAL REPORT 09/14/2021 11:55 AM - Electronically signed by ??Perfecto Arguello M.D. LB: LB D: ??09/14/2021 11:55 AM T: ??09/14/2021 11:55 AM Report ID: [id number] Reading Location: ??[id number] Procedure Note Perfecto Arguello MD - 09/14/2021 EXAM DESCRIPTION: NM MPI SPECT (REST AND/OR STRESS) MULTIPLE STUDIES REASON FOR STUDY: Chest pain 4 days ago. RADIOPHARMACEUTICAL: Rest: 10.5 mCi Tc-99m tetrofosmin Pharmacologic Stress: 30.1 mCi Tc-99m tetrofosmin Injection site: Right antecubital vein IV site TECHNIQUE: Standard myocardial perfusion images were obtained afterresting tracer injection. Subsequently, an intravenous infusion of 0.4 mgLexiscan was performed. Standard myocardial perfusion images were obtained after tracer injection at the peak effect of the drug. COMPARISON: None available FINDINGS: Image quality is adequate at rest and adequate at stress. Small area of mildly reduced perfusion in the distal anterior wall of theleft ventricle at stress with normal perfusion at rest. The left ventricular cavity size is normal. Gated tomographic images demonstrate normal wall motion and wallthickening with a left ventricular ejection fraction of 74 % poststress (normal>45%). IMPRESSION: Small area of ischemia in the distal anterior wall of left ventricle. Normal left ventricular ejection fraction of 74 % poststress. Normal wall motion. THIS IS AN ELECTRONICALLY VERIFIED FINAL REPORT 09/14/2021 11:55 AM - Electronically signed by Perfecto Arguello M.D. LB: LB Report ID: [id number] Reading Location: [id number] Andrew Marx MD IMG NM PROCEDURES Final Result * POCT glucose (09/14/2021 11:05 AM CDT) Glucose, POC 168 70 - 199 mg/dL MARY JANE Comment:Testing performed by : [address], [address] Glucose comment 1 Use This Result MARY JANE Comment:Testing performed by : [address], [address] Blood 09/14/2021 11:0 5 AM CDT 09/14/2021 11:05 AM CDT Result [facility] Antonella Christianson MD LAB POCT ORDERABLES - DEVICE F inal Result Performing Organization Address [facility] de Phone Number [facility] [address] [facility] [place] [address] * POCT glucose (09/14/2021 7:23 AM CDT) [facility] Glucose, POC 153 70 - 199 mg/dL MARY JANE Comment:Testing performed by : [address], [address] Blood 09/14/2021 7:23 AM CDT 09/14/2021 7:23 AM CDT Antonella Christianson MD LAB POCT ORDERABLES - DEVICE F inal Result Performing Organization Address [facility] de Phone Number [facility] [address] [facility] [place] [address] * eGFR (09/14/2021 3:40 AM CDT) eGFR 96 mL/min/1. 73 m2 [...] was last reviewed 2021. Testing performed by: [address] [address] Blood 09/14/2021 3:40 AM CDT 09/14/2021 4:23 AM CDT us Sravan Patel MD LAB BLOOD ORDERABLES Deann bowman Result Performing Organization Address City/State/[facility] Co de Phone Number [facility] [address] [facility] Department [place] [address] * (ABNORMAL) Differential, auto (09/14/2021 3:40 AM CDT) Neutrophil abs 8.2(H) 1.7 - 6.5 K/cumm MARY JANE Comment:Testing performed by : [address] [address] Imm gran abs 0.1 0.0 - 0.1 K/cumm MARY JANE Comment:Testing performed by : [address] [address] Lymphocyte abs 2.7 0.8 - 3.3 K/cumm MARY JANE Comment:Testing performed by : [address] [address] Monocyte abs 1.0(H) 0.2 - 0.8 K/cumm MARY JANE Comment:Testing performed by : [address] [address] Eosinophil abs 0.2 0.0 - 0.5 K/cumm MARY JANE Comment:Testing performed by : [address] [address] Basophil abs 0.0 0.0 - 0.1 K/cumm MARY JANE Comment:Testing performed by : [address] [address] Neutrophil pct 67.7 % MARY JANE Comment: Interpretive Data Percent cell count reference ranges are not reported, since discordance with absolute values may lead to misinterpretation of CBC data. Current Interpretive Data was last revised on 2017. Testing performed by: [address] [address] Imm gran pct 0.5 % MARY JANE Comment: Interpretive Data Percent cell count reference ranges are not reported, since discordance with absolute values may lead to misinterpretation of CBC data. Current Interpretive Data was last revised on 2017. Testing performed by: [address] [address] Lymphocyte pct 21.9 % MARY JANE Comment: Interpretive Data Percent cell count reference ranges are not reported, since discordance with absolute values may lead to misinterpretation of CBC data. Current Interpretive Data was last revised on 2017. Testing performed by: [address] [address] Monocyte pct 7.8 % MARY JANE Comment: Interpretive Data Percent cell count reference ranges are not reported, since discordance with absolute values may lead to misinterpretation of CBC data. Current Interpretive Data was last revised on 2017. Testing performed by: [address] [address] Eosinophil pct 1.9 % MARY JANE Comment: Interpretive Data Percent cell count reference ranges are not reported, since discordance with absolute values may lead to misinterpretation of CBC data. Current Interpretive Data was last revised on 2017. Testing performed by: [address] [address] Basophil pct 0.2 % MARY JANE Comment: Interpretive Data Percent cell count reference ranges are not reported, since discordance with absolute values may lead to misinterpretation of CBC data. Current Interpretive Data was last revised on 2017. Testing performed by: [address] [address] Blood 09/14/2021 3:40 AM CDT 09/14/2021 4:23 AM CDT us Sravan Patel MD LAB BLOOD ORDERABLES Deann bowman Result MARY JANE [address] [facility] Department [place] [address] * Basic metabolic panel (09/14/2021 3:40 AM CDT) Sodium 137 135 - 145 mmol/L MARY JANE Comment:Testing performed by : [address] [address] Potassium, pl 4.4 3.3 - 4.9 mmol/L MARY JANE Comment:Testing performed by : [address] [address] Chloride 102 97 - 110 mmol/L MARY JANE Comment:Testing performed by : [address] [address] CO2 24 22 - 32 mmol/L MARY JANE Comment:Testing performed by : [address] [address] Anion gap 11 2 - 15 mmol/L MARY JANE Comment:Testing performed by : [address] [address] BUN 24 8 - 25 mg/dL MARY JANE Comment:Testing performed by : [address] [address] Creatinine 0.70 0.60 - 1.10 mg/dL MARY JANE Comment:Testing performed by : [address] [address] Glucose 182 70 - 199 mg/dL MARY JANE PHAM [...] was last revised 2017. Testing performed by: [address] [address] Calcium 9.2 8.5 - 10.3 mg/dL MARY JANE Comment:Testing performed by : [address] [address] Blood 09/14/2021 3:40 AM CDT 09/14/2021 4:23 AM CDT us Sravan Patel MD LAB BLOOD ORDERABLES Deann l Result MARY JANE [address] [facility] Department [place] [address] * (ABNORMAL) CBC with auto differential (09/14/2021 3:40 AM CDT) Pathologist [facility] WBC 12.1(H) 3.8 - 9.9 K/cumm MARY JANE PHAM Comment:Testing performed by : [address] [address] Hgb 13.5 11.9 - 15.5 g/dL MARY JANE PHAM Comment:Testing performed by : [address] [address] Hct 43.5 35.6 - 45.5 % MARY JANE PHAM Comment:Testing performed by : [address] [address] Plt 267 150 - 400 K/cumm MARY JANE PHAM Comment:Testing performed by : [address] [place]., [address] MPV 10.2 9.1 - 12.3 fL MARY JANE PHAM Comment:Testing performed by : [address] [address] RBC 4.70 3.90 - 5.20 M/cumm MARY JANE PHAM Comment:Testing performed by : [address] [address] MCV 92.6 81.3 - 96.4 fL MARY JANE Comment:Testing performed by : [address] [address] MCH 28.7 27.1 - 33.3 pg MARY JANE PHAM Comment:Testing performed by : [address] [address] MCHC 31.0(L) 32.3 - 35.7 g/dL MARY JANE PHAM Comment:Testing performed by : [address], [address] RDW CV 13.7 11.1 - 14.9 % MARY JANE Comment:Testing performed by : [address], [address] RDW SD 47.0 35.7 - 48.1 fL MARY JANE Comment:Testing performed by : [address] [address] NRBC abs 0.00 0.00 - 0.01 K/cumm MARY JANE Comment:Testing performed by : [address] [address] Blood 09/14/2021 3:40 AM CDT 09/14/2021 4:23 AM CDT us Sravan Patel MD LAB BLOOD ORDERABLES Deann bowman Result MARY JANE PHAM [address] [facility] Department [place] [address] * eGFR (09/13/2021 5:13 PM CDT) [facility] eGFR 82 mL/min/1. 73 m2 MARY JANE [...] reviewed 2021. Testing performed by: [facility], [address] [place] [address]., [address] Blood 09/13/2021 5:13 PM CDT 09/13/2021 5:31 PM CDT Sravan Patel MD LAB BLOOD ORDERABLES Deann l Result MARY JANE [address] [facility] Department [place] [address] * (ABNORMAL) Differential, auto (09/13/2021 5:13 PM CDT) Neutrophil abs 8.4(H) 1.7 - 6.5 K/cumm MARY JANE PHAM Comment:Testing performed by : [facility], [address] [place] [address]., [address] Imm gran abs 0.1 0.0 - 0.1 K/cumm MARY JANE PHAM Comment:Testing performed by : [address] [address] Lymphocyte abs 3.0 0.8 - 3.3 K/cumm MARY JANE Comment:Testing performed by : [address], [place]., [address] Monocyte abs 0.9(H) 0.2 - 0.8 K/cumm MARY JANE Comment:Testing performed by : [address], [place]., [address] Eosinophil abs 0.2 0.0 - 0.5 K/cumm MARY JANE Comment:Testing performed by : [address], [place]., [address] Basophil abs 0.0 0.0 - 0.1 K/cumm MARY JANE Comment:Testing performed by : [address] [address] Neutrophil pct 66.4 % MARY JANE Comment: Interpretive Data Percent cell count reference ranges are not reported, since discordance with absolute values may lead to misinterpretation of CBC data. Current Interpretive Data was last revised on 2017. Testing performed by: [address] [address] Imm gran pct 0.5 % [facility] Comment: Interpretive Data Percent cell count reference ranges are not reported, since discordance with absolute values may lead to misinterpretation of CBC data. Current Interpretive Data was last revised on 2017. Testing performed by: [address] [address] Lymphocyte pct 23.9 % [facility] Comment: Interpretive Data Percent cell count reference ranges are not reported, since discordance with absolute values may lead to misinterpretation of CBC data. Current Interpretive Data was last revised on 2017. Testing performed by: [address] [address] Monocyte pct 7.1 % [facility] Comment: Interpretive Data Percent cell count reference ranges are not reported, since discordance with absolute values may lead to misinterpretation of CBC data. Current Interpretive Data was last revised on 2017. Testing performed by: [address] [address] Eosinophil pct 1.8 % MARY JANE Comment: Interpretive Data Percent cell count reference ranges are not reported, since discordance with absolute values may lead to misinterpretation of CBC data. Current Interpretive Data was last revised on 2017. Testing performed by: [address] [address] Basophil pct 0.3 % MARY JANE Comment: Interpretive Data Percent cell count reference ranges are not reported, since discordance with absolute values may lead to misinterpretation of CBC data. Current Interpretive Data was last revised on 2017. Testing performed by: [address] [address] Blood 09/13/2021 5:13 PM CDT 09/13/2021 5:31 PM CDT Sravan Patel MD LAB BLOOD ORDERABLES Deann l Result Performing Organization Address City/[facility]/ZIP Co de Phone Number [address] [employer] [address] * POCT glucose (09/13/2021 5:13 PM CDT) Glucose, POC 131 70 - 199 mg/dL MARY JANE Comment:Testing performed by : [address] [address] Blood 09/13/2021 5:13 PM CDT 09/13/2021 5:13 PM CDT Sravan Patel MD LAB POCT ORDERABLES - DEV ICE Final Result [address] [place] [address] * (ABNORMAL) Comprehensive metabolic panel (09/13/2021 5:13 PM CDT) Sodium 137 135 - 145 mmol/L MARY JANE Comment:Testing performed by : [address] [address] Potassium, pl 4.7 3.3 - 4.9 mmol/L [facility] Comment:Testing performed by : [address] [address] Chloride 99 97 - 110 mmol/L [facility] Comment:Testing performed by : [address], [place]., [address] CO2 28 22 - 32 mmol/L [facility] Comment:Testing performed by : [address], [place]., [address] Anion gap 10 2 - 15 mmol/L [facility] Comment:Testing performed by : [address], [place]., [address] BUN 19 8 - 25 mg/dL [facility] Comment:Testing performed by : [address] [address] Creatinine 0.80 0.60 - 1.10 mg/dL [facility] Comment:Testing performed by : [address] [address] Glucose 143 70 - 199 mg/dL [facility] Comment: Interpretive Data Fasting glucose >/= 126 [...] was last revised 2017. Testing performed by: [address] [address] Calcium 10.5(H) 8.5 - 10.3 mg/dL [facility] Comment:Testing performed by : [address] [address] Bilirubin, total 0.6 0.1 - 1.2 mg/dL [facility] Comment:Testing performed by : [address] [address] Protein, pl 9.1(H) 6.5 - 8.5 g/dL MARY JANE PHAM Comment:Testing performed by : [address] [address] Albumin 4.2 3.5 - 5.0 g/dL MARY JANE PHAM Comment:Testing performed by : [address] [address] Alk phos 96 40 - 130 Units/L MARY JANE PHAM Comment:Testing performed by : [address] [address] ALT 20 7 - 45 Units/L MARY JANE PHAM Comment:Testing performed by : [address] [address] AST 17 10 - 45 Units/L MARY JANE Comment:Testing performed by : [address] [address] Blood 09/13/2021 5:13 PM CDT 09/13/2021 5:31 PM CDT us Sravan Patel MD LAB BLOOD ORDERABLES Deann bowman Result MARY JANE [facility] Department of Laboratories [place], [place] [id number] * (ABNORMAL) CBC with auto differential (09/13/2021 5:13 PM CDT) [facility] WBC 12.7(H) 3.8 - 9.9 K/cumm MARY JANE PHAM Comment:Testing performed by : [address] [address] Hgb 14.9 11.9 - 15.5 g/dL MARY JANE PHAM Comment:Testing performed by : [address] [address] Hct 47.0(H) 35.6 - 45.5 % MARY JANE PHAM Comment:Testing performed by : [address] [address] Plt 281 150 - 400 K/cumm MARY JANE PHAM Comment:Testing performed by : [address] [address] MPV 9.5 9.1 - 12.3 fL MARY JANE PHAM Comment:Testing performed by : [address], [address] RBC 5.13 3.90 - 5.20 M/cumm MARY JANE PHAM Comment:Testing performed by : [address] [address] MCV 91.6 81.3 - 96.4 fL MARY JANE PHAM Comment:Testing performed by : [address] [address] MCH 29.0 27.1 - 33.3 pg MARY JANE PHAM Comment:Testing performed by : [address] [address] MCHC 31.7(L) 32.3 - 35.7 g/dL MARY JANE Comment:Testing performed by : [address] [address] RDW CV 13.6 11.1 - 14.9 % MARY JANE Comment:Testing performed by : [address], [address] RDW SD 45.5 35.7 - 48.1 fL MARY JANE Comment:Testing performed by : [address], [address] NRBC abs 0.00 0.00 - 0.01 K/cumm MARY JANE Comment:Testing performed by : [address], [address] Blood 09/13/2021 5:13 PM CDT 09/13/2021 5:31 PM CDT us Sravan Patel MD LAB BLOOD ORDERABLES Deann bowman Result [facility] [address] [facility] Department [place] [address] * TRANSTHORACIC ECHO (TTE) COMPLETE W DOPPLER/CF W CONTRAST (09/13/2021 3:24 PM CDT) Anatomical Region Laterality Modality Ultrasound 09/13/2021 3:24 PM CDT Narrative 09/13/2021 11:01 PM CDT ? Adult Echocardiogram + ----- + :Name: MOHSEN MARQUES ??Study Date: 09/13/2021 ?Status: MHE ?: : ?Patient Location: [facility] [address] [facility]^[id number]^eit: 61 in ?: : ?Weight: 282 lbBP: 140/85 mmHg: :: 1955 ? Gender: Female ?BSA: 2.2 m2 ?: :Reason For Study: Chest Pain ? : :Ordering Physician: LEN, ? : :SRAVAN ? : : ? : :Performed By: Alvina ?: :Clay, RDCS ? : + ----- + Procedure A two-dimensional transthoracic echocardiogram with color flow and Doppler was performed. The study was technically difficult due to patient's 'body habitus'. A contrast injection of Definity was performed to improve assessment of LV function. Lot No. [id number]. The study was done portably. Left Ventricle The left ventricle is normal in size. There is borderline concentric left ventricular hypertrophy. Left ventricular systolic function is normal. Ejection Fraction = 55-60%. The left ventricular wall motion is normal. Right Ventricle The right ventricle is normal size. The right ventricular systolic function is normal. Atria The left atrial size is normal. Right atrial size is normal. Mitral Valve There is mild to moderate mitral annular calcification. Mitral valve peak gradient is 5.6 mm/Hg. Mitral valve mean gradient is 1.5 mm/Hg. There is no mitral valve stenosis. There is physiologic mitral regurgitation. Tricuspid Valve The tricuspid valve is not well visualized. There is trace tricuspid regurgitation. Cannot assess RVSP due to lack of sufficient TR jet. Aortic Valve Aortic valve sclerosis' mild'. The aortic valve opens well. Aortic valve sclerotic, but not stenotic. Aortic valve velocity is 193 cm/s. LVOT velocity is 124 cm/s. Aortic valve area = 2.2 cm2. No aortic regurgitation is present. Pulmonic Valve The pulmonic valve is not well visualized. Pulmonic valve velocity is 124 cm/s. RVOT velocity is 87 cm/s. Great Vessels The aortic root is normal size. IVC not well seen. Pericardium There is no pericardial effusion. Diastology Mitral inflow shows reversal of E/A ratio, suggestive of diastolic dysfunction of left ventricle. E/E prime ratio is 8 -15 which is in the indeterminate zone. Grade I diastolic dysfunction, (abnormal relaxation pattern). Interpretation Summary There is borderline concentric left ventricular hypertrophy. Left ventricular systolic function is normal. Ejection Fraction = 55-60%. The right ventricle is normal size. The right ventricular systolic function is normal. Aortic valve sclerotic, but not stenotic. There is mild to moderate mitral annular calcification. Mitral valve mean gradient is 1.5 mm/Hg. There is no mitral valve stenosis. Grade I diastolic dysfunction, (abnormal relaxation pattern). + + :Measurements with Normals ?: : ?(0.6-1.2 ?LVIDd: ?(3.5-5.7 ?? Ao root diam: ?(2.0-3.7 ?? : :IVSd: 1.2 cmcm) ? 4.5 cm ?cm) ?2.9 cm ? cm) ?: :LVPWd: ?(0.6-1.1 ?LVIDs: ?(3.1-4.6 ?? LA dimension: ?(1.9-4.0 ?? : :1.1 cm ?cm) ? 3.0 cm ?cm) ?3.9 cm ? cm) ?: + + MMode/2D Measurements & Calculations FS: 33.3 % ?Ao root area: ? LVOT diam: 2.1 cm LVLd ap4: 7.1 cm EDV(Teich): 94.4 ml 6.6 cm2 ? LVOT area: ?EDV(MOD- sp4): ESV(Teich): 35.9 ml ? 3.5 cm2 ? 84.8 ml ?LVLs ap4: 5.5 cm ?ESV(MOD-sp4): ?28.0 ml ?EF(MOD-sp4): 67.0 % ? SV(MOD-sp4): ?EF (BP): 71.5 % 56.8 ml Doppler Measurements & Calculations MV E max simeon: ?MV V2 max: ? MV dec time: ? Ao V2 max: 83.4 cm/sec ?117.9 cm/sec ? 0.27 sec ? 193.0 cm/sec MV A max simeon: ?MV max PG: ?Ao max P.0 cm/sec ? 5.6 mmHg ?14.9 mmHg MV E/A: 0.70 ? MV V2 mean: ? ELVIA(V,D): 2.2 cm2 ? 51.9 cm/sec ? MV mean PG: ? 1.5 mmHg ? MV V2 VTI: 32.1 cm ? LV V1 max PG: ?PA V2 max: ? PI end-d simeon: ?RV V1 max: 6.2 mmHg ? 124.0 cm/sec ? 81.4 cm/sec ?87.0 cm/sec LV V1 max: ? PA max P.0 cm/sec ? 6.2 mmHg ? TR max simeon: 242.0 cm/sec TR max P.4 mmHg Electronically signed by: Luis Elizabeth MD 09/13/2021 11:01 PM Procedure Note Luis Elizabeth MD - 09/13/2021 Adult Echocardiogram + ----- + :Name: HOLLAND MARQUESJOANN Montero Study Date: 09/13/2021tatus: MHE : : [id number]^MHeight: 61 in : : : 282 lbBP: 140/85 mmHg: :: 1955 Gender: FemaleBSA: 2.2 m2 : :Reason For Study: Chest Pain: :Ordering Physician: LEN,: :SRAVAN: :: :Performed By: Alvina: :JONATHAN Clay: + ----- + Procedure A two-dimensional transthoracic echocardiogram with color flow and Dopplerwas performed. The study was technically difficult due to patient's 'body habitus'. A contrast injection of Definity was performed to improveassessment of LV function. Lot No. [id number]. The study was done portably. Left Ventricle The left ventricle is normal in size. There is borderline concentricleft ventricular hypertrophy. Left ventricular systolic function is normal. Ejection Fraction = 55-60%. The left ventricular wall motion is normal. Right Ventricle The right ventricle is normal size. The right ventricular systolicfunction is normal. Atria The left atrial size is normal. Right atrial size is normal. Mitral Valve There is mild to moderate mitral annular calcification. Mitral valvepeak gradient is 5.6 mm/Hg. Mitral valve mean gradient is 1.5 mm/Hg. Thereis no mitral valve stenosis. There is physiologic mitral regurgitation. Tricuspid Valve The tricuspid valve is not well visualized. There is trace tricuspid regurgitation. Cannot assess RVSP due to lack of sufficient TR jet. Aortic Valve Aortic valve sclerosis' mild'. The aortic valve opens well. Aortic valve sclerotic, but not stenotic. Aortic valve velocity is 193 cm/s. LVOTvelocity is 124 cm/s. Aortic valve area = 2.2 cm2. No aortic regurgitation ispresent. Pulmonic Valve The pulmonic valve is not well visualized. Pulmonic valve velocity is124 cm/s. RVOT velocity is 87 cm/s. Great Vessels The aortic root is normal size. IVC not well seen. Pericardium There is no pericardial effusion. Diastology Mitral inflow shows reversal of E/A ratio, suggestive of diastolicdysfunction of left ventricle. E/E prime ratio is 8 -15 which is in theindeterminate zone. Grade I diastolic dysfunction, (abnormal relaxation pattern). Interpretation Summary There is borderline concentric left ventricular hypertrophy. Left ventricular systolic function is normal. Ejection Fraction = 55-60%. The right ventricle is normal size. The right ventricular systolic function is normal. Aortic valve sclerotic, but not stenotic. There is mild to moderate mitral annular calcification. Mitral valve mean gradient is 1.5 mm/Hg. There is no mitral valve stenosis. Grade I diastolic dysfunction, (abnormal relaxation pattern). + + :Measurements with Normals: : (0.6-1.2 LVIDd: (3.5-5.7 Ao root diam:(2.0-3.7 : :IVSd: 1.2 cmcm) 4.5 cm cm) 2.9 cm cm): :LVPWd: (0.6-1.1 LVIDs: (3.1-4.6 LA dimension:(1.9-4.0 : :1.1 cm cm) 3.0 cm cm) 3.9 cm cm): + + MMode/2D Measurements & Calculations FS: 33.3 % Ao root area: LVOT diam: 2.1 cm LVLd ap4: 7.1cm EDV(Teich): 94.4 ml 6.6 cm2 LVOT area: EDV(MOD-sp4): ESV(Teich): 35.9 ml 3.5 cm2 84.8 ml LVLs ap4: 5.5cm ESV(MOD-sp4): 28.0 ml EF(MOD-sp4):67.0 % SV(MOD-sp4): EF (BP): 71.5 % 56.8 ml Doppler Measurements & Calculations MV E max simeon: MV V2 max: MV dec time: Ao V2 max: 83.4 cm/sec 117.9 cm/sec 0.27 sec 193.0 cm/sec MV A max simeon: MV max PG: Ao max P.0 cm/sec 5.6 mmHg 14.9 mmHg MV E/A: 0.70 MV V2 mean: ELVIA(V,D): 2.2cm2 51.9 cm/sec MV mean P.5 mmHg MV V2 VTI: 32.1 cm LV V1 max PG: PA V2 max: PI end-d simeon: RV V1 max: 6.2 mmHg 124.0 cm/sec 81.4 cm/sec 87.0 cm/sec LV V1 max: PA max P.0 cm/sec 6.2 mmHg TR max simeon: 242.0 cm/sec TR max P.4 mmHg Electronically signed by: Luis Elizabeth MD 09/13/2021 11:01 PM Sravan Patel MD CV ECHO PROCEDURES Final Result * POCT glucose (09/13/2021 12:30 PM CDT) Glucose, POC 107 70 - 199 mg/dL MARY JANE Comment:Testing performed by : [address] [address] Glucose comment 1 Use This Result MARY JANE Comment:Testing performed by : [address], [address] Glucose comment 2 Will Notify Nurse MARY JANE Comment:Testing performed by : [address] [address] Blood 09/13/2021 12:3 0 PM CDT 09/13/2021 12:30 PM CDT Sravan Patel MD LAB POCT ORDERABLES - DEV ICE Final Result Performing Organization Address City/[facility] Co de Phone Number [address] [place] [address] * POCT glucose (09/13/2021 9:03 AM CDT) [facility] Glucose, POC 128 70 - 199 mg/dL MARY JANE Comment:Testing performed by : [address] [address] Blood 09/13/2021 9:03 AM CDT 09/13/2021 9:03 AM CDT Sravan Patel MD LAB POCT ORDERABLES - DEV ICE Final Result Performing Organization Address City/[facility] Co de Phone Number [address] [place] [address] * POCT glucose (09/12/2021 9:00 PM CDT) Glucose, POC 155 70 - 199 mg/dL MARY JANE Comment:Testing performed by : [address] [address] Blood 09/12/2021 9:00 PM CDT 09/12/2021 9:00 PM CDT Sravan Patel MD LAB POCT ORDERABLES - DEV ICE Final Result Performing Organization Address City/[facility]/ZIP Co de Phone Number [address] [address] * POCT glucose (09/12/2021 5:04 PM CDT) Glucose, POC 105 70 - 199 mg/dL MARY JANE Comment:Testing performed by : [address] [address] Glucose comment 1 Use This Result MARY JANE Comment:Testing performed by : [address] [address] Blood 09/12/2021 5:04 PM CDT 09/12/2021 5:04 PM CDT Sravan Patel MD LAB POCT ORDERABLES - DEV ICE Final Result Performing Organization Address [facility] Co de Phone Number [address] [address] * POCT glucose (09/12/2021 12:51 PM CDT) Glucose, POC 187 70 - 199 mg/dL MARY JANE Comment:Testing performed by : [address] [address] Blood 09/12/2021 12:5 1 PM CDT 09/12/2021 12:51 PM CDT Sravan Patel MD LAB POCT ORDERABLES - DEV ICE Final Result [address] [place] [address] * POCT glucose (09/12/2021 9:02 AM CDT) [facility] Glucose, POC 156 70 - 199 mg/dL MARY JANE Comment:Testing performed by : [address] [address] Glucose comment 1 Use This Result MARY JANE Comment:Testing performed by : [facility], [address] [place] [address]., [address] Blood 09/12/2021 9:02 AM CDT 09/12/2021 9:02 AM CDT us Sravan Patel MD LAB POCT ORDERABLES - DEV ICE Final Result Performing Organization Address City/[facility]/ZIP Co de Phone Number [address] [facility] [place] [address] * (ABNORMAL) Troponin T high-sensitivity (09/12/2021 5:33 AM CDT) [facility] Trop T hs 17(H) <=14 ng/L MARY JANE Comment: Interpretive Data For further hscTnT resources including the diagnostic algorithm and an aid in interpretation, copy and paste this link: https://nrl.testcatalog.org/show/hsTrop Current Interpretive Data last revised 2020. Testing performed by: [address] [address] Blood 09/12/2021 5:33 AM CDT 09/12/2021 5:37 AM CDT Drew Calero MD LAB BLOOD ORDERABLES Final Resul t [address] [facility] [place] [address] * ECG 12 lead (09/12/2021 4:46 AM CDT) [facility] Ventricular Rate EKG/Min 74 BPM [facility] Atrial Rate 74 BPM [facility] AR-Interval (MSEC) 134 ms [facility] QRS-Interval (MSEC) 82 ms [facility] QT-Interval (MSEC) 392 ms [facility] QTc 435 ms [facility] P [place] 51 degrees [facility] R [place] 6 degrees [facility] T [place] 39 degrees [facility] Diagnosis Normal sinus rhythm Normal ECG When compared with ECG of 11-SEP-2021 14:53, No significant change was found [facility] 09/12/2021 4:46 AM CDT 09/12/2021 7:54 PM CDT Drew Calero MD ECG ORDERABLES Final Result Performing Organization Address City/[facility]/ZIP Co de Phone Number [facility] * (ABNORMAL) Troponin T high-sensitivity 6-hour (09/11/2021 11:06 PM CDT) Trop T hs 16(H) <=14 ng/L MARY JANE PHAM Comment: Ref Range High Interpretive Data For further hscTnT resources including the diagnostic algorithm and an aid in interpretation, copy and paste this link: https://nrl.testcatalog.org/show/hsTrop Current Interpretive Data last revised 2020. Testing performed by: [address] [address] Trop T hs delta See Comment ng/L MARY JANE PHAM Comment: Inappropriate collection time to report a delta. Testing performed by: [address] [address] Trop T hs pct delta See Comment % MARY JANE PHAM Comment: Inappropriate collection time to report a delta. Testing performed by: [address] [address] Trop T hs interp See Comment MARY JANE PHAM Comment: Inappropriate collection time to report a delta. Testing performed by: [address] [address] Blood 09/11/2021 11:0 6 PM CDT 09/11/2021 11:12 PM CDT Sonali Snell NP LAB BLOOD ORDERABLES Final Result MARY JANE PHAM [address] [facility] [place] [address] * CT Abdomen Pelvis WO Contrast (09/11/2021 10:10 PM CDT) Anatomical Region Laterality Modality Body N/A Computed Tomogra phy 09/11/2021 10:3 0 PM CDT Narrative 09/11/2021 10:39 PM CDT EXAM DESCRIPTION: ?? CT ABDOMEN PELVIS WO CONTRAST REASON FOR STUDY: ?? Nausea/vomiting, Abdominal pain, acute, nonlocalized ?? Generalized weakness with nausea today ? TECHNIQUE: CT scan of the abdomen and pelvis performed without intravenous and ??without ??oral contrast using helical scanning technique. Reconstructed coronal and sagittal MPR images reviewed. All images stored on PACS. ?? Automated exposure control was used as a dose optimization technique for this examination. COMPARISON: None FINDINGS: The sensitivity for detection of visceral lesions is diminished without the use of intravenous contrast; pathology may not be appreciable. LOWER CHEST: Please see separately dictated CT chest from same day LIVER: ?? No identified cystic or solid masses on noncontrast imaging. GALLBLADDER: ?? Surgically absent. BILE DUCTS: ?? No intrahepatic or extrahepatic ductal dilatation. ?? SPLEEN: ?No focal lesions. PANCREAS: ?? No identified cystic or solid masses. No significant calcifications. No adjacent inflammation or peripancreatic fluid collections. Pancreatic duct not dilated. ADRENALS: ?? Unremarkable. KIDNEYS/URINARY TRACT: ?? No identified significant cystic or solid masses. No visualized stones. No hydronephrosis or hydroureter. ?Urinary bladder is unremarkable. GI: Evaluation the gastrointestinal tract is limited by lack of distention and bowel prep. ?Distal esophagus is unremarkable. ??Stomach and proximal small bowel are unremarkable. ??No small bowel obstruction. ??Scattered diverticular disease without evidence of acute diverticulitis. ?? PERITONEUM: ?? No ascites or free air. RETROPERITONEUM: ?? No mass or adenopathy. REPRODUCTIVE: ?? No significant abnormality. VASCULATURE: ?? No abdominal aortic aneurysm. MUSCULOSKELETAL: ?? Redemonstration of marked increased sclerosis about the bilateral sacroiliac joints with questionable erosive change at the left sacroiliac joint, possibly related to inflammatory arthropathy. ?? Postsurgical changes along the lower anterior abdominal wall. OTHER: ?? No additional significant abnormality. IMPRESSION: ?? No acute process in the abdomen pelvis. Redemonstration of marked sclerosis about the bilateral sacroiliac joints with questionable erosion at the left sacroiliac joint, possibly related to inflammatory arthropathy. Please see additional findings as above. THIS IS AN ELECTRONICALLY VERIFIED FINAL REPORT 09/11/2021 10:39 PM - Electronically signed by ??Cleo Garza M.D. BG: D: ??09/11/2021 10:39 PM T: ??09/11/2021 10:39 PM Report ID: [id number] Reading Location: ??[id number] Procedure Note Cleo Garza MD - 09/11/2021 EXAM DESCRIPTION: CT ABDOMEN PELVIS WO CONTRAST REASON FOR STUDY: Nausea/vomiting, Abdominal pain, acute, nonlocalized Generalized weakness with nausea today TECHNIQUE: CT scan of the abdomen and pelvis performed without intravenousand without oral contrast using helical scanning technique. Reconstructed coronal and sagittal MPR images reviewed. All images stored on PACS. Automated exposure control was used as a dose optimization technique forthis examination. COMPARISON: None FINDINGS: The sensitivity for detection of visceral lesions is diminished without the use of intravenous contrast; pathology may not beappreciable. LOWER CHEST: Please see separately dictated CT chest from same day LIVER: No identified cystic or solid masses on noncontrast imaging. GALLBLADDER: Surgically absent. BILE DUCTS: No intrahepatic or extrahepatic ductal dilatation. SPLEEN: No focal lesions. PANCREAS: No identified cystic or solid masses. No significant calcifications. No adjacent inflammation or peripancreatic fluidcollections. Pancreatic duct not dilated. ADRENALS: Unremarkable. KIDNEYS/URINARY TRACT: No identified significant cystic or solid masses.No visualized stones. No hydronephrosis or hydroureter. Urinary bladder is unremarkable. GI: Evaluation the gastrointestinal tract is limited by lack of distentionand bowel prep. Distal esophagus is unremarkable. Stomach and proximalsmall bowel are unremarkable. No small bowel obstruction. Scattereddiverticular disease without evidence of acute diverticulitis. PERITONEUM: No ascites or free air. RETROPERITONEUM: No mass or adenopathy. REPRODUCTIVE: No significant abnormality. VASCULATURE: No abdominal aortic aneurysm. MUSCULOSKELETAL: Redemonstration of marked increased sclerosis about the bilateral sacroiliac joints with questionable erosive change at the left sacroiliac joint, possibly related to inflammatory arthropathy.Postsurgical changes along the lower anterior abdominal wall. OTHER: No additional significant abnormality. IMPRESSION: No acute process in the abdomen pelvis. Redemonstration of marked sclerosis about the bilateral sacroiliac joints with questionable erosion at the left sacroiliac joint, possibly relatedto inflammatory arthropathy. Please see additional findings as above. THIS IS AN ELECTRONICALLY VERIFIED FINAL REPORT 09/11/2021 10:39 PM - Electronically signed by Cleo Garza M.D. BG: Report ID: [id number] Reading Location: [id number] Kirit Everett DO IMG CT PROCEDURES Final Result * US Vein Duplex Lower Extremity Bilateral Complete (09/11/2021 7:00 PM CDT) Anatomical Region Laterality Modality Vascular Bilateral Ultrasound 09/11/2021 Narrative 09/16/2021 10:37 AM CDT Sequent Job ID: [id number] Sequent Document ID: [id number] Dictated date/time: REASON FOR EXAM Leg pain. FINDINGS COMMENTS ON THE RIGHT Veins throughout the right lower extremity show spontaneous and phasic flow with normal augmentation. ??All veins are competent and compressible. COMMENTS ON THE LEFT Veins throughout the left lower extremity show spontaneous and phasic flow with normal augmentation. ??All veins are competent and compressible. OVERALL IMPRESSION Negative for deep venous thrombosis bilateral lower extremities. Job ID/Internal Job ID: ??[id number] Sonali Snell NP IMG US PROCEDURES Final Res ult * (ABNORMAL) Troponin T high-sensitivity 4-hour (09/11/2021 6:44 PM CDT) Trop T hs 15(H) <=14 ng/L MARY JANE PHAM Comment: Interpretive Data For further hscTnT resources including the diagnostic algorithm and an aid in interpretation, copy and paste this link: https://nrl.testcatalog.org/show/hsTrop Current Interpretive Data last revised 2020. Testing performed by: [address] [address] Trop T hs delta -2 ng/L MARY JANE PHAM Comment:Testing performed by : [facility], [address] [place] [address]., [address] Trop T hs interp Insignificant MARY JANE PHAM Comment:Testing performed by : [address] [address] Blood 09/11/2021 6:44 PM CDT 09/11/2021 7:07 PM CDT us Sonali Snell DESULFURIZER MACHINE LAB BLOOD ORDERABLES Final Result MARY JANE PHAM [address] [facility] Department of Laboratories [place], [place] [id number] * CT Chest PE W Contrast (09/11/2021 4:48 PM CDT) Anatomical Region Laterality Modality Body N/A Computed Tomogra phy 09/11/2021 5:29 PM CDT Narrative 09/11/2021 5:38 PM CDT EXAM DESCRIPTION: ?? CT CHEST PE (CTA) W CONTRAST REASON FOR STUDY: ?? Chest pain, PE suspected, low/intermediate prob, positive D-dimer ?? Pt was supposed to get ultra sound for possible dvt last week but was unable to make the appointment. Pt woke last night feeling uneasy and heaviness in her chest and left arm pain. ?? TECHNIQUE: CT angiogram of the chest performed [...] injected via ?? intravenous COMPARISON: ?? CT pulmonary angiogram 11/11/2017. FINDINGS: VASCULATURE: ?? Pulmonary arteries are appropriately opacified and no intraluminal filling defects are identified to indicate the presence of acute pulmonary emboli. The aorta is nonaneurysmal. ??The branching pattern of the great vessels is normal. LUNGS: ?? No airspace consolidation is identified. ??Scattered subsegmental atelectasis within both lungs. PLEURA: ?? No pleural effusion or evidence of a pneumothorax. MEDIASTINUM/SHALA: ?? Enlarged prevascular lymph node measures 1.7 x 1.4 cm (axial image 38). ??This is slightly larger than on the chest CT from 2018 when it measured 1.3 x 1.0 cm. Central airways are patent. HEART: ?? Normal in size. ??There is no pericardial effusion. AXILLA: ?? No adenopathy. CHEST WALL: ?? Bilateral thyroid nodules some of which are calcified. ??Largest nodule on the right measures about 1.5 cm. ??Given nodule size and patient age, routine follow-up with thyroid ultrasound may be obtained. HARDWARE/LINES/TUBES: ?? None. UPPER ABDOMEN: ?? No acute abnormality. ??Cholecystectomy. MUSCULOSKELETAL: ?? Moderate thoracic disc degeneration. ??No compression fracture. ??No aggressive bone or endplate destruction. OTHER: ?? No significant abnormality. IMPRESSION: ?? No evidence of an acute pulmonary embolus. Nonspecific mildly enlarged prevascular lymph node measuring 1.7 x 1.4 cm currently. Bilateral thyroid nodules, largest on the right measuring 1.5 cm. ??Routine follow-up with thyroid ultrasound may be obtained. THIS IS AN ELECTRONICALLY VERIFIED FINAL REPORT 09/11/2021 5:38 PM - Electronically signed by ??Giovanni Johnston D.O. : D: ??09/11/2021 5:38 PM T: ??09/11/2021 5:38 PM Report ID: [id number] Reading Location: ??[id number] Procedure Note Giovanni Johnston DO - 09/11/2021 EXAM DESCRIPTION: CT CHEST PE (CTA) W CONTRAST REASON FOR STUDY: Chest pain, PE suspected, low/intermediate prob,positive D-dimer Pt was supposed to get ultra sound for possible dvt last week but wasunable to make the appointment. Pt woke last night feeling uneasy and heavinessin her chest and left arm pain. TECHNIQUE: CT angiogram of the chest performed with intravenous contrastusing helical scanning technique with dynamic intravenous contrast injection. Reconstructed coronal and sagittal MPR images reviewed. All images storedon PACS. 3D MIP images rendered on scanning unit and reviewed at time of interpretation. Automated exposure control was used as a doseoptimization technique for this examination. CONTRAST TYPE/DOSE: 100mL of IOVERSOL 350 MG IODINE/ML INTRAVENOUSSYRINGE injected via intravenous COMPARISON: CT pulmonary angiogram 11/11/2017. FINDINGS: VASCULATURE: Pulmonary arteries are appropriately opacifiedand no intraluminal filling defects are identified to indicate the presence ofacute pulmonary emboli. The aorta is nonaneurysmal. The branching pattern of the great vessels is normal. LUNGS: No airspace consolidation is identified. Scattered subsegmental atelectasis within both lungs. PLEURA: No pleural effusion or evidence of a pneumothorax. MEDIASTINUM/SHALA: Enlarged prevascular lymph node measures 1.7 x 1.4 cm (axial image 38). This is slightly larger than on the chest CT from 2018when it measured 1.3 x 1.0 cm. Central airways are patent. HEART: Normal in size. There is no pericardial effusion. AXILLA: No adenopathy. CHEST WALL: Bilateral thyroid nodules some of which are calcified.Largest nodule on the right measures about 1.5 cm. Given nodule size and patientage, routine follow-up with thyroid ultrasound may be obtained. HARDWARE/LINES/TUBES: None. UPPER ABDOMEN: No acute abnormality. Cholecystectomy. MUSCULOSKELETAL: Moderate thoracic disc degeneration. No compression fracture. No aggressive bone or endplate destruction. OTHER: No significant abnormality. IMPRESSION: No evidence of an acute pulmonary embolus. Nonspecific mildly enlarged prevascular lymph node measuring 1.7 x 1.4 cm currently. Bilateral thyroid nodules, largest on the right measuring 1.5 cm.Routine follow-up with thyroid ultrasound may be obtained. THIS IS AN ELECTRONICALLY VERIFIED FINAL REPORT 09/11/2021 5:38 PM - Electronically signed by Giovanni Johnston D.O. : Report ID: [id number] Reading Location: [place] [address] Sonali Snell NP IMG CT PROCEDURES Final Res ult * (ABNORMAL) Urinalysis, microscopic only (09/11/2021 3:09 PM CDT) WBC, ur 0-5 0 - 5 /HPF MARY JANE PHAM Comment:Testing performed by : [address] [address] RBC, ur 3-5(A) 0 - 2 /HPF MARY JANE PHAM Comment:Testing performed by : [address] [address] Epithelial cells, squamous, ur 1-5 0 - 5 /HPF MARY JANE PHAM Comment:Testing performed by : [address] [address] Culture Reflex Comment Reflex conditions for urine culture (WBC >10) not met. MARY JANE PHAM Comment:Testing performed by : [address] [address] Urine 09/11/2021 3:09 PM CDT 09/11/2021 3:14 PM CDT us Sonali Snell NP LAB URINE ORDERABLES Final Result MARY JANE [facility] Department [place] [address] * (ABNORMAL) Urinalysis reflex to microscopic and culture Urine (09/11/2021 3:09 PM CDT) Color, ur Yellow Yellow MARY JANE PHAM Comment:Testing performed by : [address] [address] Clarity, ur Clear Clear MARY JANE PHAM Comment:Testing performed by : [address] [address] Specific gravity, ur 1.014 1.003 - 1.030 MARY JANE PHAM Comment:Testing performed by : [address] [address] pH, urine 8.0 MARY JANE PHAM Comment:Testing performed by : [address] [address] Protein, ur ql Negative Negative MARY JANE PHAM Comment:Testing performed by : [address], [place]., [address] Glucose, ur ql Negative Negative MARY JANE Comment:Testing performed by : [address], [place]., [address] Ketones, ur Negative Negative MARY JANE Comment:Testing performed by : [address], [place]., [address] Bilirubin, ur Negative Negative MARY JANE Comment:Testing performed by : [address], [place]., [address] Blood, ur 1+(A) Negative MARY JANE PHAM Comment:Testing performed by : [address], [place]., [address] Urobilinogen, ur <2.0 <2.0 mg/dL MARY JANE PHAM Comment:Testing performed by : [address], [place]., [address] Nitrite, ur Negative Negative MARY JANE Comment:Testing performed by : [address] [address] Leukocyte esterase, ur Negative Negative MARY JANE Comment:Testing performed by : [address], [place]., [address] UA reflex comment Reflex to microscopic UA will be performed. MARY JANE Comment:Testing performed by : [address], [place]., [address] Urine 09/11/2021 3:09 PM CDT 09/11/2021 3:14 PM CDT Narrative MARY JANE - 09/11/2021 3:19 PM CDT ?? Urine pH is affected by diet, medications, systemic acid-base disturbances, and renal tubular function. ??pH may affect urinary stone formation. ??For example, urine pH below 6.0 may help reduce the tendency for calcium phosphate stones and pH greater than 6.0 may reduce the tendency for uric acid stone formation. Source: [employer]. Last revised 05-04-2017 us Sonali Snell NP LAB MICROBIOLOGY - GENERAL ORDERABLES Final Result MARY JANE PHAM [address] [facility] Department [place] [address] * POCT creatinine for contrast evaluation (09/11/2021 3:03 PM CDT) Pathologist [facility] Creatinine POC 0.70 0.60 - 1.10 mg/dL MARY JANE Comment:Testing performed by : [facility], [address] [place] [address]., [address] Blood 09/11/2021 3:03 PM CDT 09/11/2021 3:03 PM CDT Notinfile Unknown POINT OF CARE TEST ORDERABLES Final Result Performing Organization Address City/[facility] Co de Phone Number MARY JANE [address] [facility] Department [place] [address] * ECG 12 lead (09/11/2021 2:53 PM CDT) [facility] Ventricular Rate EKG/Min 87 BPM [facility] Atrial Rate 87 BPM [facility] AR-Interval (MSEC) 128 ms [facility] QRS-Interval (MSEC) 82 ms [facility] QT-Interval (MSEC) 370 ms [facility] QTc 445 ms [facility] P [place] 50 degrees [facility] R [place] -2 degrees [facility] T [place] 41 degrees [facility] Diagnosis Normal sinus rhythm Possible Left atrial enlargement Borderline ECG No previous ECGs available [facility] 09/11/2021 2:53 PM CDT 09/12/2021 7:37 PM CDT Sonali Snell DESULFURIZER MACHINE ECG ORDERABLES Final Resul t Performing Organization Address City/[facility]/ZIP Co de Phone Number [facility] * POCT troponin (09/11/2021 2:49 PM CDT) [facility] Troponin I Point of Care 0.00 0.00 - 0.08 ng/mL MARY JANE PHAM Comment: Interpretive Data If result is <= 0.08 ng/mL: ??Not Detected. If result is ??> 0.08 ng/mL: ??Detected. The [employer] iSTAT point of care assay (Troponin I) was used. The cutoff for a Detected result is 0.08 ng/mL. ??This Troponin I result will not always exactly correlate with the high sensitivity Troponin T result, which uses a cutoff of 0.022 ng/mL for males and 0.014 ng/mL for females. ??The point of care assay should be regarded as an initial screening test for the presence of cardiac troponin. ??Correlation with clinical findings and high sensitivity Troponin T results is recommended. Current interpretive data was last revised 2020. Testing performed by: [facility], [address] [place] [address]., [address] Blood 09/11/2021 2:49 PM CDT 09/11/2021 2:49 PM CDT Notinfile Unknown LAB POCT ORDERABLES - DEVICE F inal Result Performing Organization Address [facility] Co de Phone Number [facility] [address] [facility] [place] [address] * TSH reflex to free T4 (09/11/2021 2:46 PM CDT) Pathologist [facility] TSH 2.20 0.30 - 4.20 mcIUnit/mL [facility] Comment:Testing performed by : [address] [address] Blood 09/11/2021 2:46 PM CDT 09/11/2021 7:12 PM CDT Kirit Everett DO LAB BLOOD ORDERABLES Final Res ult Performing Organization Address [facility] Co de Phone Number [facility] [address] [facility] [place] [address] * eGFR (09/11/2021 2:46 PM CDT) Pathologist [facility] eGFR 100 mL/min/1. 73 m2 [facility] [...] was last reviewed 2021. Testing performed by: [address] [address] Blood 09/11/2021 2:46 PM CDT 09/11/2021 2:54 PM CDT Sonali Snell NP LAB BLOOD ORDERABLES Final Result Performing Organization Address City/State/[facility] Co de Phone Number [facility] [address] [facility] Department [place] [address] * (ABNORMAL) Differential, auto (09/11/2021 2:46 PM CDT) Neutrophil abs 8.8(H) 1.7 - 6.5 K/cumm MARY JANE PHAM Comment:Testing performed by : [address] [address] Imm gran abs 0.1 0.0 - 0.1 K/cumm MARY JANE PHAM Comment:Testing performed by : [address] [address] Lymphocyte abs 2.5 0.8 - 3.3 K/cumm MARY JANE Comment:Testing performed by : [address] [address] Monocyte abs 0.8 0.2 - 0.8 K/cumm MARY JANE Comment:Testing performed by : [address] [address] Eosinophil abs 0.2 0.0 - 0.5 K/cumm MARY JANE Comment:Testing performed by : [address] [address] Basophil abs 0.0 0.0 - 0.1 K/cumm MARY JANE Comment:Testing performed by : [address] [address] Neutrophil pct 71.0 % MARY JANE Comment: Interpretive Data Percent cell count reference ranges are not reported, since discordance with absolute values may lead to misinterpretation of CBC data. Current Interpretive Data was last revised on 2017. Testing performed by: [address] [address] Imm gran pct 0.6 % [facility] Comment: Interpretive Data Percent cell count reference ranges are not reported, since discordance with absolute values may lead to misinterpretation of CBC data. Current Interpretive Data was last revised on 2017. Testing performed by: [address] [address] Lymphocyte pct 20.1 % [facility] Comment: Interpretive Data Percent cell count reference ranges are not reported, since discordance with absolute values may lead to misinterpretation of CBC data. Current Interpretive Data was last revised on 2017. Testing performed by: [address] [address] Monocyte pct 6.5 % [facility] Comment: Interpretive Data Percent cell count reference ranges are not reported, since discordance with absolute values may lead to misinterpretation of CBC data. Current Interpretive Data was last revised on 2017. Testing performed by: [address] [address] Eosinophil pct 1.5 % [facility] Comment: Interpretive Data Percent cell count reference ranges are not reported, since discordance with absolute values may lead to misinterpretation of CBC data. Current Interpretive Data was last revised on 2017. Testing performed by: [address] [address] Basophil pct 0.3 % MARY JANE PHAM Comment: Interpretive Data Percent cell count reference ranges are not reported, since discordance with absolute values may lead to misinterpretation of CBC data. Current Interpretive Data was last revised on 2017. Testing performed by: [address] [address] Blood 09/11/2021 2:46 PM CDT 09/11/2021 2:54 PM CDT Sonali nSell NP LAB BLOOD ORDERABLES Final Result Performing Organization Address [facility] Co de Phone Number MARY JANE [facility] [place] [address] * (ABNORMAL) Troponin T high-sensitivity series (baseline, 2hr, 4hr, 6hr) (09/11/2021 2:46 PM CDT) Trop T hs 17(H) <=14 ng/L MARY JANE PHAM Comment: Interpretive Data For further hscTnT resources including the diagnostic algorithm and an aid in interpretation, copy and paste this link: [email or web address] Current Interpretive Data last revised 2020. Testing performed by: [address] [address] Blood 09/11/2021 2:46 PM CDT 09/11/2021 2:54 PM CDT Sonali Snell NP LAB BLOOD ORDERABLES Final Result Performing Organization Address [facility] Co de Phone Number [facility] [address] [facility] [place] [address] * Comprehensive metabolic panel (09/11/2021 2:46 PM CDT) Sodium 138 135 - 145 mmol/L MARY JANE PHAM Comment:Testing performed by : [address] [place]., [address] Potassium, pl 4.6 3.3 - 4.9 mmol/L [facility] Comment: HEMOLYZED: Hemolysis interferes with the above test. Testing performed by: [address] [address] Chloride 100 97 - 110 mmol/L [facility] Comment:Testing performed by : [address] [address] CO2 26 22 - 32 mmol/L [facility] Comment:Testing performed by : [address] [address] Anion gap 12 2 - 15 mmol/L [facility] Comment:Testing performed by : [address] [address] BUN 15 8 - 25 mg/dL [facility] Comment:Testing performed by : [address] [address] Creatinine 0.60 0.60 - 1.10 mg/dL [facility] Comment:Testing performed by : [address] [address] Glucose 126 70 - 199 mg/dL [facility] Comment: Interpretive Data Fasting glucose >/= 126 [...] was last revised 2017. Testing performed by: [address] [address] Calcium 9.3 8.5 - 10.3 mg/dL [facility] Comment:Testing performed by : [address] [address] Bilirubin, total 0.7 0.1 - 1.2 mg/dL [facility] Comment:Testing performed by : [address] [address] Protein, pl 8.3 6.5 - 8.5 g/dL MARY JANE PHAM Comment:Testing performed by : [address] [address] Albumin 3.9 3.5 - 5.0 g/dL MARY JANE PHAM Comment:Testing performed by : [address] [address] Alk phos 88 40 - 130 Units/L MARY JANE Comment:Testing performed by : [address] [address] ALT 22 7 - 45 Units/L MARY JANE Comment: HEMOLYZED: Hemolysis interferes with the above test. Testing performed by: [address] [address] AST 25 10 - 45 Units/L MARY JANE Comment: HEMOLYZED: Hemolysis interferes with the above test. Testing performed by: [address] [address] Blood 09/11/2021 2:46 PM CDT 09/11/2021 2:54 PM CDT us Sonali Snell DESULFURIZER MACHINE LAB BLOOD ORDERABLES Final Result MARY JANE [address] [facility] Department of Laboratories [place], [place] [id number] * (ABNORMAL) CBC with auto differential (09/11/2021 2:46 PM CDT) Pathologist [facility] WBC 12.4(H) 3.8 - 9.9 K/cumm MARY JANE PHAM Comment:Testing performed by : [address] [address] Hgb 13.5 11.9 - 15.5 g/dL MARY JANE PHAM Comment:Testing performed by : [address] [address] Hct 42.9 35.6 - 45.5 % MARY JANE PHAM Comment:Testing performed by : [address] [address] Plt 282 150 - 400 K/cumm MARY JANE PHAM Comment:Testing performed by : [address] [address] MPV 9.5 9.1 - 12.3 fL MARY JANE PHAM Comment:Testing performed by : [address] [address] RBC 4.66 3.90 - 5.20 M/cumm MARY JANE PHAM Comment:Testing performed by : [address] [address] MCV 92.1 81.3 - 96.4 fL MARY JANE PHAM Comment:Testing performed by : [address] [address] MCH 29.0 27.1 - 33.3 pg MARY JANE PHAM Comment:Testing performed by : [address] [address] MCHC 31.5(L) 32.3 - 35.7 g/dL MARY JANE PHAM Comment:Testing performed by : [address], [address] RDW CV 13.8 11.1 - 14.9 % MARY JANE PHAM Comment:Testing performed by : [address], [address] RDW SD 47.0 35.7 - 48.1 fL MARY JANE PHAM Comment:Testing performed by : [address], [address] NRBC abs 0.00 0.00 - 0.01 K/cumm MARY JANE PHAM Comment:Testing performed by : [address], [address] Blood 09/11/2021 2:46 PM CDT 09/11/2021 2:54 PM CDT us Sonali Snell DESULFURIZER MACHINE LAB BLOOD ORDERABLES Final Result MARY JANE PHAM [phone] [facility] Department of Laboratories [place], [place] [id number] * Pro B-type natriuretic peptide (09/11/2021 2:46 PM CDT) NT-proBNP 62 <=300 pg/mL MARY JANE PHAM Comment: Interpretive [...] Date: 2017. Testing performed by: [facility], [address] [place] [address]., [address] Blood 09/11/2021 2:46 PM CDT 09/11/2021 2:54 PM CDT us Sonali Snell NP LAB BLOOD ORDERABLES Final Result MARY JANE MH [address] [facility] Department [place] [address] documented in this encounter Visit Diagnoses Diagnosis Chest pain- Primary Unspecified chest pain Chest pain, unspecified type Nausea and vomiting, unspecified vomiting type Type 2 diabetes mellitus without complication, unspecified whether long winder tender insulin use (HCC) Hypertension, unspecified type History of DVT (deep vein thrombosis) Hypertension Unspecified essential hypertension Type 2 diabetes mellitus without complication (CMS/HCC) (HCC) documented in this encounter Admitting Diagnoses Diagnosis Chest pain Unspecified chest pain documented in this encounter Administered Medications Inactive Administered Medications - up to 3 most recent administrations Medication Order MAR Action Action Date Dose Rate Site al & mag hydroxide simethicone-lidocaine oral suspension mixture 40 mL, oral, Once, On 09/11/21 at 1928, For 1 dose Given 09/11/2021 7:36 PM CDT 40 mL amitriptyline (ELAVIL) tablet 25 mg 25 mg, oral, Nightly, First dose on 09/12/21 at 2100 Given 09/13/2021 8:29 PM CDT 25 mg Given 09/12/2021 9:23 PM CDT 25 mg enoxaparin (LOVENOX) syringe 120 mg 120 mg (rounded from 128.2 mg = 1 mg/kg ? 128.2 kg), subcutaneous, Every 12 hours scheduled, First dose on 09/12/21 at 1400, Patient specific bin, Indications: Venous Thrombosis, taking preop for surgery to replace xaraltoIndications:Venous Thrombosis,taking preop for surgery to replace xaralto Given 09/14/2021 11:13 AM CDT 120 mg Right Lower Abdomen Given 09/13/2021 8:43 PM CDT 120 mg Le ft Upper Abdomen Given 09/13/2021 9:09 AM CDT 120 mg Le ft Lower Abdomen exemestane (AROMASIN) tablet 25 mg 25 mg, oral, Nightly, First dose on 09/14/21 at 2100, Patient's home supply verified by pharmacy HYDROcodone-acetaminophen (NORCO) 5-325 mg per tablet 1 tablet 1 tablet, oral, Every 4 hours PRN, 2nd line for pain, for pain, Starting on 09/12/21 at 0302, Indications: PainIndications:Pain Given 09/14/2021 4:07 A M CDT 1 tablet Given 09/13/2021 8:29 PM CDT 1 tablet Given 09/13/2021 4:11 PM CDT 1 tablet Ot her (Comment) insulin glargine (LANTUS, SEMGLEE) 100 unit/mL injection 40 Units 40 Units, subcutaneous, Daily, First dose on 09/12/21 at 1300, Do not mix with other insulins Given 09/14/2021 11:14 AM CDT 40 Units Left Upper Abdomen Given 09/13/2021 9:08 AM CDT 40 Units Le ft Upper Arm Given 09/12/2021 1:17 PM CDT 40 Units Ri ght Upper Arm insulin lispro (HumaLOG, ADMELOG) 100 unit/mL injection 12 Units 12 Units, subcutaneous, 3 times daily before meals, First dose on 09/12/21 at 1300, Administer pre-meal doses when pts food tray arrives in room. Do not administer pre-meal doses to NPO patients. Given 09/14/2021 11:13 AM CDT 12 Units Left Lower Abdomen Given 09/13/2021 5:17 PM CDT 12 Units Ri ght Upper Arm Given 09/13/2021 10:08 AM CDT 12 Units R ight Upper Arm ioversoL (OPTIRAY 350) syringe syringe 100 mL 100 mL, intravenous, Once in imaging, contrast, Starting on 09/11/21 at 1648, For 1 dose Contrast Given 09/11/2021 4:48 PM CDT 100 mL morphine injection 3 mg 3 mg, intravenous, Administer over 4 Minutes, Once, On 09/14/21 at 0645, For 1 dose Given 09/14/2021 6:48 AM CDT 3 mg ondansetron (ZOFRAN) injection 4 mg 4 mg, intravenous, Administer over 2 Minutes, Every 6 hours PRN, nausea, vomiting, if not tolerating PO, Starting on 09/12/21 at 0257, Indications: Nausea and VomitingIndications:Nausea and Vomiting Given 09/13/2021 10:29 PM CDT 4 mg ondansetron ODT (ZOFRAN-ODT) disintegrating tablet 4 mg 4 mg, oral, Every 6 hours PRN, nausea, vomiting, Starting on Mon09/12/21 at 0257, Indications: Nausea and VomitingIndications:Nausea and Vomiting oxybutynin (DITROPAN) tablet 5 mg 5 mg, oral, 2 times daily, First dose on Mon09/12/21 at 1300 Given 09/14/2021 11:12 AM CDT 5 mg Given 09/13/2021 8:29 PM CDT 5 mg Given 09/13/2021 9:09 AM CDT [address] (PROTONIX) extended release tablet 40 mg 40 mg, oral, Once, On Mon09/12/21 at 0015, For 1 dose, Do not crush, chew, cut, dissolve, open or otherwise manipulate tablet/capsule., Indications: Treatment of Non-Bleeding Gastric DisorderIndications:Treatment of Non-Bleeding Gastric Disorder Given 09/12/2021 12:19 AM CDT [address] (PROTONIX) extended release tablet 40 mg 40 mg, oral, 2 times daily, First dose on Mon09/13/21 at 1130, Do not crush, chew, cut, dissolve, open or otherwise manipulate tablet/capsule., Indications: Treatment of Non-Bleeding Gastric DisorderIndications:Treatment of Non-Bleeding Gastric Disorder Given 09/14/2021 11:12 AM CDT 40 mg Given 09/13/2021 8:28 PM CDT 40 mg Given 09/13/2021 11:04 AM CDT 40 mg perflutren lipid (DEFINITY) 1.5 mL in sodium chloride 0.9% 10 mL syringe 1-10 mL, intravenous, Once in imaging, contrast, Starting on Mon09/13/21 at 1404, For 1 dose, Intra-Procedure (CV) Contrast Given 09/13/2021 4:05 PM CDT 2 mL regadenoson (LEXISCAN) 0.4 mg/5 mL injection 0.4 mg 0.4 mg, intravenous, Once, On Mon09/14/21 at 0930, For 1 dose, Intra-Procedure (CV), Administer IV push over 10 seconds., Indications: Myocardial Perfusion Imaging AdjunctIndications:Myocar dial Perfusion Imaging Adjunct Given 09/14/2021 9:30 AM CDT 0.4 mg Right Antecubital request for patient's supply of exemestane (AROMASIN) tablet 25 mg 25 mg, oral, Nightly, First dose on Mon09/12/21 at 2100, Exemstane 25 mg nightly. Home supply verified by pharmacy Given 09/13/2021 8:34 PM CDT 25 mg rOPINIRole (REQUIP) tablet 5 mg 5 mg, oral, Nightly, First dose on Mon09/12/21 at 2100, Patient Specific Bin Given 09/13/2021 8:33 PM CDT 5 mg Given 09/12/2021 9:23 PM CDT 5 mg rOPINIRole (REQUIP) tablet 5 mg 5 mg, oral, Once, On Mon09/12/21 at 0517, For 1 dose Given 09/12/2021 5:29 AM CDT 5 mg rOPINIRole (REQUIP) tablet 5 mg 5 mg, oral, Nightly, First dose (after last modification) on Mon09/14/21 at 2100, Patient's home supply verified by pharmacy. Ropinirole 5 mg nightly sodium chloride 0.9% flush 125 mL 125 mL, intravenous, Once in imaging, line care, Starting on 09/11/21 at 1648, For 1 dose Given 09/11/2021 4:48 PM CDT 125 mL tc-99m tetrofosmin (MYOVIEW) injection 10.5 millicurie 10.5 millicurie, intravenous, Once in imaging, radiopharmaceutical, Starting on Mon09/14/21 at 0846, For 1 dose, Indications: Diagnostic RadiographyIndications:Diagn ostic Radiography Given 09/14/2021 8:47 AM CDT 10.5 millicuries tc-99m tetrofosmin (MYOVIEW) injection 38.1 millicurie 38.1 millicurie, intravenous, Once in imaging, radiopharmaceutical, Starting on Mon09/14/21 at 1111, For 1 dose, Indications: Diagnostic RadiographyIndications:Diagn ostic Radiography Given 09/14/2021 11:11 AM CDT 38.1 millicuries trolamine salicylate (ASPERCREME) 10 % cream topical, 2 times daily PRN, muscle/joint pain, Starting on 09/12/21 at 2323, Apply to affected area: leg, Laterality: Bilateral Given 09/12/2021 11:39 PM CDT 1 application (deactivated) documented in this encounter Discontinued Medications Medication Sig Discontinue Reason Start Date End Da te acetaminophen-codeine (TYLENOL with CODEINE #3) 300-30 mg per tablet acetaminophen 300 mg-codeine 30 mg tablet 09/12/2021 clotrimazole-betametha sone (LOTRISONE) cream clotrimazole-betamethas one 1 %-0.05 % topical cream APPLY TOPICALLY TO AFFECTED AND SURROUNDING AREAS BID IN THE MORNING AND EVENING X 2 WEEKS 09/12/2021 dexAMETHasone (DECADRON) 4 mg tablet dexamethasone 4 mg tablet TAKE TWO TABLETS PO IN THE MORNING DAY AFTER CHEMO WHICH IS DAY 2 TAKE TWO TABLETS IN MORNING AND TWO TABLETS AT NIGHT ON DAY 3 AND 4 09/12/2021 dextromethorphan (DELSYM) syrup 30 mg/5 mL Take 30 mg by mouth every 12 (twelve) hours as needed 04/19/2021 09/12/2021 ibuprofen (ADVIL,MOTRIN) 600 mg tablet ibuprofen 600 mg tablet TK 1 T PO Q 6 H PRN 09/12/2021 prochlorperazine (COMPAZINE) 10 mg tablet prochlorperazine maleate 10 mg tablet 09/12/2021 selenium sulfide 2.5 % lotion selenium sulfide 2.5 % shampoo APPLY TO THE AFFECTED AREAS BY TOPICAL ROUTE TWICE WEEKLY LATHER LEAVE ON 10 MINUTES AND RINSE OFF 09/12/2021 ondansetron ODT (ZOFRAN-ODT) 4 mg disintegrating tabletIndications:Naus ea Take 1 tablet (4 mg total) by mouth every 8 (eight) hours as needed for nausea or vomiting 08/16/2021 09/12/2021 aspirin 325 mg tablet Take 325 mg by mouth daily Therapy completed 04/19/2021 09/12/2021 baclofen (LIORESAL) 10 mg tablet baclofen 10 mg tablet Therapy completed 09/13/19 clonazePAM (KlonoPIN) 1 mg tablet Take 1 tablet (1 mg total) by mouth 2 (two) times a day for 10 days . Therapy completed 06/27/2018 09/12/2021 dapagliflozin (FARXIGA) 5 mg tablet daily Therapy completed 09/13/[address] (CYMBALTA) 20 mg capsule Cymbalta 20 mg capsule,delayed release 09/12/2021 famotidine (PEPCID) 20 mg tablet Take 20 mg by mouth 2 (two) times a day 03/03/2021 09/12/2021 gabapentin (NEURONTIN) 300 mg capsule gabapentin 300 mg capsule 09/12/2021 HYDROcodone-acetaminop hen (NORCO) 5-325 mg per tabletIndications:Pain Take by mouth. 01/01/2018 hydrOXYzine (ATARAX) 25 mg tablet hydroxyzine HCl 25 mg tablet 09/12/2021 lisinopril (PRINIVIL,ZESTRIL) 20 mg tablet Take 20 mg by mouth. 05/11/2012 09/12/2021 metoprolol tartrate (LOPRESSOR) 25 mg immediate release tablet metoprolol tartrate 25 mg tablet 09/12/2021 mirabegron ER (MYRBETRIQ) 25 mg tablet extended release 24 hr Take 25 mg by mouth daily 09/04/2020 09/12/2021 morphine (MSIR) 15 mg tablet morphine 15 mg immediate release tablet 09/12/[address] (PROTONIX) 40 mg EC tablet pantoprazole 40 mg tablet,delayed release 09/12/2021 sucralfate (CARAFATE) 1 gram tablet Take 1 g by mouth 4 (four) times a day 03/03/2021 09/12/2021 documented as of this encounter Active and Recently Administered Medications Times are shown in CDT. Scheduled Medication Order 09/12/2021 09/13/2021 09/14/2021 amitriptyline (ELAVIL) tablet 25 mg 25 mg, oral, Nightly, First dose on 09/12/21 at 2100 3 (Given - Provider: Heaven Wilkinson RN) 2028 (Given - Provider: Bubba Campbell RN) enoxaparin (LOVENOX) syringe 120 mg 120 mg (rounded from 128.2 mg = 1 mg/kg ? 128.2 kg), subcutaneous, Every 12 hours scheduled, First dose on 09/12/21 at 1400, Patient specific bin, Indications: Venous Thrombosis, taking preop for surgery to replace xaralto 1400 (Given - Provider: Trudi Cooley RN)212 (Given - Provider: Heaven Wilkinson RN) 0909 (Given - Provider: Farzaneh Valero RN)2043 (Given - Provider: Bubba Campbell, NURIS) 1113 (Given - Provider: Iliana Lara, NURIS) exemestane (AROMASIN) tablet 25 mg 25 mg, oral, Nightly, First dose on Mon09/14/21 at 2100, Patient's home supply verified by pharmacy insulin glargine (LANTUS, SEMGLEE) 100 unit/mL injection 40 Units 40 Units, subcutaneous, Daily, First dose on Mon09/12/21 at 1300, Do not mix with other insulins 1317 (Given - Provider: Trudi Cooley RN) 0908 (Given - Provider: Farzaneh Valero RN) 1114 (Given - Provider: Iliana Lara, NURIS) insulin lispro (HumaLOG, ADMELOG) 100 unit/mL injection 12 Units 12 Units, subcutaneous, 3 times daily before meals, First dose on Mon09/12/21 at 1300, Administer pre-meal doses when pts food tray arrives in room. Do not administer pre-meal doses to NPO patients. 1316 (Given - Provider: Trudi Cooley RN)1845 (Given - Provider: Trudi Cooley RN) 1008 (Given - Provider: Farzaneh Valero, NURIS)1346 (Not Given - Provider: Farzaneh Valero RN - Reason: Patient/family refused)1717 (Given - Provider: Farzaneh Valero RN) 0918 (Not Given - Provider: Iliana Lara, NURIS - Reason: NPO)1113 (Given - Provider: Iliana Lara, NURIS) morphine injection 3 mg (COMPLETED) 3 mg, intravenous, Administer over 4 Minutes, Once, On Mon09/14/21 at 0645, For 1 dose 0648 (Given - Provider: Bubba Campbell, NURIS) oxybutynin (DITROPAN) tablet 5 mg 5 mg, oral, 2 times daily, First dose on Mon09/12/21 at 1300 1316 (Given - Provider: Trudi Cooley, NURIS)2122 (Given - Provider: Heaven Wilkinson, NURIS) 908 (Given - Provider: Farzaneh Valero, NURIS)2028 (Given - Provider: Bubba Campbell, NURIS) 111 (Given - Provider: Iliana Lara, NURIS) pantoprazole DR (PROTONIX) extended release tablet 40 mg (COMPLETED) 40 mg, oral, Once, On Mon09/12/21 at 0015, For 1 dose, Do not crush, chew, cut, dissolve, open or otherwise manipulate tablet/capsule., Indications: Treatment of Non-Bleeding Gastric Disorder 18 (Given - Provider: Shanthi Valiente RN) pantoprazole DR (PROTONIX) extended release tablet 40 mg 40 mg, oral, 2 times daily, First dose on Mon09/13/21 at 1130, Do not crush, chew, cut, dissolve, open or otherwise manipulate tablet/capsule., Indications: Treatment of Non-Bleeding Gastric Disorder 1104 (Given - Provider: Farzaneh Valero, NURIS)2027 (Given - Provider: Bubba Campbell, NURIS) 111 (Given - Provider: Iliana Lara, NURIS) regadenoson (LEXISCAN) 0.4 mg/5 mL injection 0.4 mg (COMPLETED) 0.4 mg, intravenous, Once, On Mon09/14/21 at 0930, For 1 dose, Intra-Procedure (CV), Administer IV push over 10 seconds., Indications: Myocardial Perfusion Imaging Adjunct 929 (Given - Provider: Meli Villagomez, NURIS) request for patient's supply of exemestane (AROMASIN) tablet 25 mg (CANCELED) 25 mg, oral, Nightly, First dose on Mon09/12/21 at 2100, Exemstane 25 mg nightly. Home supply verified by pharmacy 2123 (Not Given - Provider: Heaven Wilkinson, NURIS - Reason: Medication not available) 2033 (Given - Provider: Bubba Campbell, NURIS) rivaroxaban (XARELTO) tablet 20 mg 20 mg, oral, Daily, First dose on Mon09/12/21 at 0900, Nurse to discontinue heparin infusion order and associated bolus at first administration of rivaroxaban using 'order condition met' order source. If patient is eating, administer doses of 15 mg or greater with food. If patient is not eating, still administer dose unless instructed differently by provider., Indications: Venous Thrombosis, On hold since 09/12/2021 at 1221 until manually unheld 0900 (Due)122 (Held by Provider - Provider: Sravan Patel MD - Reason: Hold for Procedure - Comment: Already on hold outpatient for surgery on ) 0900 (Dose Auto Held - Provider: Sravan Patel MD) 09 (Dose Auto Held - Provider: Sravan Patel MD)2042 (Unheld by Provider - Provider: Automatic Discharge Provider) rOPINIRole (REQUIP) tablet 5 mg (CANCELED) 5 mg, oral, Nightly, First dose on Mon09/12/21 at 2100, Patient Specific Bin 2122 (Given - Provider: Heaven Wilkinson, RN) 2032 (Given - Provider: Bubba Campbell RN) rOPINIRole (REQUIP) tablet 5 mg (COMPLETED) 5 mg, oral, Once, On 09/12/21 at 0517, For 1 dose 0529 (Given - Provider: Shanthi Valiente RN) rOPINIRole (REQUIP) tablet 5 mg 5 mg, oral, Nightly, First dose (after last modification) on Mon09/14/21 at 2100, Patient's home supply verified by pharmacy. Ropinirole 5 mg nightly PRN Medication Order 09/12/2021 09/13/2021 09/14/2021 albuterol HFA (PROVENTIL HFA,VENTOLIN HFA,PROAIR HFA) 90 mcg/actuation inhaler 2 puff 2 puff, inhalation, Every 6 hours PRN (emergency response technician), wheezing, Starting on 09/12/21 at 0826 HYDROcodone-acetaminophe n (NORCO) 5-325 mg per tablet 1 tablet 1 tablet, oral, Every 4 hours PRN, 2nd line for pain, for pain, Starting on 09/12/21 at 0302, Indications: Pain 0306 (Given - Provider: Shanthi Valiente RN)1215 (Given - Provider: Trudi Cooley RN)1700 (Given - Provider: Trudi Cooley RN)2207 (Not Given - Provider: Heaven Wilkinson RN - Reason: Patient/family refused)2339 (Given - Provider: Heaven Wilkinson RN) 1104 (Given - Provider: Farzaneh Valero, RN)1611 (Given - Provider: Farzaneh Valero, RN - Comment: back)2028 (Given - Provider: Bubba Campbell RN) 0407 (Given - Provider: Bubba Campbell, NURIS) ondansetron (ZOFRAN) injection 4 mg(Linked Group 1) 4 mg, intravenous, Administer over 2 Minutes, Every 6 hours PRN, nausea, vomiting, if not tolerating PO, Starting on 09/12/21 at 0257, Indications: Nausea and Vomiting 2229 (Given - Provider: Bubba Campbell RN) ondansetron ODT (ZOFRAN-ODT) disintegrating tablet 4 mg(Linked Group 1) 4 mg, oral, Every 6 hours PRN, nausea, vomiting, Starting on 09/12/21 at 0257, Indications: Nausea and Vomiting 2229 (See Alternative - Provider: Bubba Campbell RN) perflutren lipid (DEFINITY) 1.5 mL in sodium chloride 0.9% 10 mL syringe (COMPLETED) 1-10 mL, intravenous, Once in imaging, contrast, Starting on Mon09/13/21 at 1404, For 1 dose, Intra-Procedure (CV) 1605 (Contrast Given - Provider: Alvina Clay [facility]) tc-99m tetrofosmin (MYOVIEW) injection 10.5 millicurie (COMPLETED) 10.5 millicurie, intravenous, Once in imaging, radiopharmaceutical, Starting on Mon09/14/21 at 0846, For 1 dose, Indications: Diagnostic Radiography 0847 (Given - Provider: Lila Sandoval, RT) tc-99m tetrofosmin (MYOVIEW) injection 38.1 millicurie (COMPLETED) 38.1 millicurie, intravenous, Once in imaging, radiopharmaceutical, Starting on Mon09/14/21 at 1111, For 1 dose, Indications: Diagnostic Radiography 1111 (Given - Provider: Lila [place], RT) trolamine salicylate (ASPERCREME) 10 % cream topical, 2 times daily PRN, muscle/joint pain, Starting on 09/12/21 at 2323, Apply to affected area: leg, Laterality: Bilateral 2339 (Given - Provider: Heaven Wilkinson, RN) Linked Groups Order Group 1: ondansetron ODT (ZOFRAN-ODT) disintegrating tablet 4 mgJump to med 4 mg, oral, Every 6 hours PRN, nausea, vomiting, Starting on 09/12/21 at 0257, Indications: Nausea and Vomiting Or ondansetron (ZOFRAN) injection 4 mgJump to med 4 mg, intravenous, Administer over 2 Minutes, Every 6 hours PRN, nausea, vomiting, if not tolerating PO, Starting on 09/12/21 at 0257, Indications: Nausea and Vomiting documented in this encounter Orders Medications Ordered That Tyler ht Not Have Been Administered Count Last Ordered Date First Ordered Date exemestane (AROMASIN) tablet 25 mg 1 2021 rOPINIRole (REQUIP) tablet 5 mg albuterol HFA (PROVENTIL HFA ,VENTOLIN HFA,PROAIR HFA) 90 mcg/actuation inhaler 2 puff 09/12/2021 aspirin tablet 325 mg 09/12/2021 baclofen (LIORESAL) tablet 10 mg 09/13/19 dapagliflozin (FARXIGA) tablet 5 mg 09/[address] (CYMBALTA) ext ended release capsule 20 mg 09/12/2021 famotidine (PEPCID) tablet 20 mg 09/13/19 gabapentin (NEURONTIN) capsule 300 mg hydrOXYzine (ATARAX) tablet 25 mg 022 lisinopriL (PRINIVIL,ZESTRIL) tablet 20 mg 09/12/2021 metoprolol tartrate (LOPRESS OR) immediate release tablet 25 mg 09/12/2021 mirabegron ER (MYRBETRIQ) ex tended release tablet 25 mg 09/12/2021 morphine (MSIR) tablet 15 mg 09/12/2021 ondansetron ODT (ZOFRAN-ODT) disintegrating tablet 4 mg 1 09/12/[address] (PROTONIX) e xtended release tablet 40 mg 1 09/12/2021 rivaroxaban (XARELTO) tablet 20 mg 1 2021 sucralfate (CARAFATE) tablet 1 g 1 09/13/19 Lab Orders Without Results Count Last Ordered D ate First Ordered Date POCT GLUCOSE DEVICE 2 09/13/2021 POCT TROPONIN DEVICE 1 09/11/2021 Diet Count Last Ordered Date First Orde red Date ADULT DISCHARGE DIET 1 09/14/2021 Nursing Count Last Ordered Date First Orde red Date DISCHARGE ACTIVITY 1 09/14/2021 DISCHARGE CALL PROVIDER 8 09/14/2021 DISCHARGE INSTRUCTIONS 1 09/14/2021 TELEMETRY MONITORING 1 09/12/2021 CARDIO RESPIRATORY MONITORING 1 09/11/2021 Consult Count Last Ordered Date First Orde red Date IP CONSULT TO CARDIOLOGY 1 09/12/2021 Admission Count Last Ordered Date First Orde red Date ADMIT TO INPATIENT 1 09/14/2021 INITIATE OBSERVATION SERVICES 1 09/12/2021 Discharge Count Last Ordered Date First Orde red Date DISCHARGE PATIENT 1 09/14/2021 CORE MEASURES Count Last Ordered Date First Ord ered Date REASON FOR NO VTE PROPHYLAXIS AT ADMISSION 1 09/12/2021 documented in this encounter Care Teams Applications Scientist Relationship Specialty Start Date End Date Justen Gale MD 2 [facility] [address] [place] [address] PCP - General 10/09/17 Liu Jerez MD Consulting Physician Gastroenterology 07/28/17 [place] [address] [facility] [address] [place] [address] Consulting Physician Pulmonary Disease 08/03/17 [place] [address] [place] [address] [address] [place], [place] [id number] Medical Oncologist/Yarn Rewinder Medical Oncology 10/23/17 [place] [address] [facility] [address] [place] [address] Surgeon Orthopedic Surgery 10/23/17 [place] [address] [facility] [address] [place] [address] Consulting Physician Pain Management 10/23/17 [place] [address] [facility] [address] [place] [address] Referring Physician General Surgery 01/26/18 [place] [address] [facility] [address] [place] [address] Consulting Physician Neurology 01/26/18 documented as of this encounter
--- OUTSIDE RECORDS SUMMARY | 2024-04-26 04:22 | XMS_ITS | Encounter Summary ---
Author Organization [facility] Address [address] [place] [address] Phone Care Team Providers Care Book Author Name Role Phone Liu Jerez MD Unavailable [phone] Albert Corbin MD Unavailable Justen Gale MD Primary Care Provider Khris Arthur MD Unavailable [phone] Ko Melendez MD Unavailable John Paul Moyer MD Unavailable Annel Rod MD Unavailable Anali MARSHALL MD, Carlos M. Unavailable Reason for Visit * Reason Onset Date Comments Schedule X-ray 11/24/2020 Encounter Details Date Type Department Care Team (Late st Contact Info) Description 11/24/2020 Telephone [facility] Oncology [address] [facility] 7th [place] [address] [place] [address] Jeanine Ba [facility] Schedule X-ray Social History Tobacco Use Types Packs/Day Years Used Date Smoking Tobacco: Former Smokeless Tobacco: Never Comments:remote tobacco use Alcohol Use Standard Drinks/Week Comments No 0 (1 standard drink = 0.6 oz pur e alcohol) PHQ-2 Answer Date Recorded PHQ-2 Score 1 12/15/2018 Comments No Sex and Gender Information Value Date Recorded Sex Assigned at Not on file 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 No answer, left message for her to call the office. UPDATE: Called [facility] and they stated the pt has not had her x-ray and they did not receive the order. Order faxed again [phone] documented in this encounter Plan of Treatment Not on file documented as of this encounter Visit Diagnoses Not on filedocumented in this encounter Care Teams Book Author Relationship Specialty Start Date End Date Justen Gale MD [address] [address] PCP - General 10/09/17 Liu Jerez MD Consulting Physician Gastroenterology 07/28/[address] [place] [address] [facility] [address] [place] [address] Consulting Physician Pulmonary Disease 08/03/17 Khris Arthur MD 49[address] [facility] [address] [place] [address] Medical Oncologist/Agency Service Representative Medical Oncology 10/23/17 [place] [address] [facility] [address] [place] [address] Surgeon Orthopedic Surgery 10/23/17 [place] [address] [facility] [address] [place] [address] Consulting Physician Pain Management 10/23/17 [place] [address] [facility] [address] [place] [address] Referring Physician General Surgery 01/26/18 [place] [address] [facility] [address] [place] [address] Consulting Physician Neurology 01/26/18 documented as of this encounter
--- OUTSIDE RECORDS SUMMARY | 2024-04-26 04:22 | XMS_ITS | Encounter Summary ---
Author Organization [facility] Healthcare Address [address] [place] [address] Care Team Providers Care Opal Polisher Name Role Phone Liu Jerez MD Unavailable Albert Corbin MD Unavailable Justen Gale MD Primary Care Provider Khris Arthur MD Unavailable [phone] Ko Melendez MD Unavailable John Paul Moyer MD Unavailable [phone] Annel Rod MD Unavailable Anali MARSHALL MD, Carlos M. Unavailable [phone] Encounter Details Date Type Department Care Team (Latest Contact Info) Description 09/07/2021 2:31 PM CDT - 09/07/2021 11:59 PM CDT Hospital Encounter 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 20 tablet 9 05/22/2 022 clotrimazole-betame thasone (LOTRISONE) cream clotrimazole-betamet hasone [...] gabapentin 300 mg capsule HYDROcodone-acetami nophen (NORCO) 10-325 mg per tablet Take 1 tablet by mouth every 6 (six) hours 2 024 HYDROcodone-acetami nophen (NORCO) 5-325 mg per tabletIndications:P [...] Take 20 mg by mouth. 01 3 022 metoprolol tartrate (LOPRESSOR) 25 mg immediate release tablet metoprolol tartrate 25 mg tablet 022 mirabegron ER (MYRBETRIQ) 25 mg tablet extended [...] for nausea or vomiting 20 tablet 2 022 oxybutynin (DITROPAN) 5 mg tablet take 1 tablet by oral route every day 0 [address] (PROTONIX) 40 mg EC tablet pantoprazole 40 mg tablet,delayed release 022 prochlorperazine (COMPAZINE) 10 mg tablet prochlorperazine maleate 10 mg tablet 022 rivaroxaban (Xarelto) 20 mg tabletIndications:O ther pulmonary [...] by mouth 4 (four) times a day 1 documented as of this encounter Discharge Disposition Disposition Code Departure Means Destination Discharge to home or self care documented in this encounter Plan of Treatment Not on file documented as of this encounter Procedures Procedure Name Priority Date/Time Associated Diagnosis Comments EGFR Routine 09/07/2021 1:18 PM CDT Malignant neoplasm of upper-inner quadrant of left breast in female, estrogen receptor positive (CMS/HCC) (HCC) COMPREHENSIVE METABOLIC PANEL Routine 09/07/2021 1:18 PM CDT Malignant neoplasm of upper-inner quadrant of left breast in female, estrogen receptor positive (CMS/HCC) (HCC) documented in this encounter Results * (ABNORMAL) eGFR (09/07/2021 1:18 PM CDT) eGFR 79(L) 90 - 130 mL/min/1. 73 m2 MARY JANE KUMAR Comment: Interpretive Data Reference Interval Normal ?>/= [...] was last reviewed 2021. Testing performed by: [facility], [address] [place] [phone] Blood 09/07/2021 1:18 PM CDT 09/07/2021 1:20 PM CDT us Khris Arthur MD LAB BLOOD ORDERABLES Final Result MARY JANE ANGELES [facility] [place] [address] * Comprehensive metabolic panel (09/07/2021 1:18 PM CDT) Sodium 135 135 - 145 mmol/L MARY JANE ANGELES Comment:Testing performed by : [facility], [address] [place] [phone] Potassium, pl 4.9 3.3 - 4.9 mmol/L MARY JANE ANGELES Comment:Testing performed by : [facility], [address] [place] [phone] Chloride 99 97 - 110 mmol/L MARY JANE ANGELES Comment:Testing performed by : [address] [address] CO2 30 22 - 32 mmol/L MARY JANE ANGELES Comment:Testing performed by : [facility], [address] [place] [phone] Anion gap 6 2 - 15 mmol/L MARY JANE ANGELES Comment:Testing performed by : [facility], [address] [place] [phone] BUN 18 8 - 25 mg/dL MARY JANE ANGELES Comment:Testing performed by : [address] [address] Creatinine 0.82 0.60 - 1.10 mg/dL MARY JANE ANGELES Comment:Testing performed by : [facility] [address] [phone] Glucose 158 70 - 199 mg/dL CERNER BJ Comment: [...] was last revised 2017. Testing performed by: [facility], [address] [place] [phone] Calcium 9.9 8.5 - 10.3 mg/dL CERNER BJ Comment:Testing performed by : [place] [phone] Bilirubin, total 0.8 0.1 - 1.2 mg/dL CERNER BJ Comment:Testing performed by : [address] [address] Protein, pl 7.9 6.5 - 8.5 g/dL CERNER BJ Comment:Testing performed by : [address] [address] Albumin 4.1 3.5 - 5.0 g/dL CERNER BJ Comment:Testing performed by : [address] [address] Alk phos 87 40 - 130 Units/L CERNER BJ Comment:Testing performed by : [address] [phone] ALT 16 7 - 45 Units/L CERNER BJ Comment:Testing performed by : [address] [address] AST 15 10 - 45 Units/L CERNER BJ Comment:Testing performed by : [address] [address] Blood 09/07/2021 1:18 PM CDT 09/07/2021 1:20 PM CDT Khris Arthur MD LAB BLOOD ORDERABLES Final Result MARY JANE ANGELES [facility] [place] [address] documented in this encounter Visit Diagnoses Diagnosis Malignant neoplasm of upper-inner quadrant of left breast in female, estrogen receptor positive (HCC) documented in this encounter Care Teams Opal Polisher Relationship Specialty Start Date End Date Justen Gale MD 2 [facility] [address] [place] [address] PCP - General 10/09/17 Liu Jerez MD Consulting Physician Gastroenterology 07/28/17 [place] [address] [facility] [address] [place] [address] Consulting Physician Pulmonary Disease 08/03/17 Khris Arthur MD 4921 [facility] [address] [place] [address] Medical Oncologist/Belt And Link Shop Supervisor Medical Oncology 10/23/17 [place] [address] [facility] [address] [place] [address] Surgeon Orthopedic Surgery 10/23/17 [place] [address] [facility] [address] [place] [address] Consulting Physician Pain Management 10/23/17 [place] [address] [facility] [address] [place] [address] Referring Physician General Surgery 01/26/18 [place] [address] [facility] [address] [place] [address] Consulting Physician Neurology 01/26/18 documented as of this encounter
--- OUTSIDE RECORDS SUMMARY | 2024-04-26 04:22 | XMS_ITS | Encounter Summary ---
Author Organization [facility] Address [address] [place] [address] Phone Care Team Providers Care Sociology Faculty Member Name Role Phone Liu Jerez MD Unavailable Albert Corbin MD Unavailable [phone] Justen Gale MD Primary Care Provider Khris Arthur MD Unavailable [phone] Ko Melendez MD Unavailable John Paul oMyer MD Unavailable Annel Rod MD Unavailable Anali MARSHALL MD, Carlos M. Unavailable Encounter Details Date Type Department Care Team (Late st Contact Info) Description 12/24/2020 Orders Only [facility] Oncology [address] [facility] 7th [place] [address] [place] [address] Radha Mcgrath RN Malignant neoplasm [...] 01/05/2021 documented in this encounter Care Teams Sociology Faculty Member Relationship Specialty Start Date End Date Justen Gale MD 2 [facility] [address] [place] [address] PCP - General 10/09/17 Liu Jerez MD Consulting Physician Gastroenterology 07/28/17 [place] [address] [facility] [address] [place] [address] Consulting Physician Pulmonary Disease 08/03/17 Khris Arthur MD 4921 [facility] [address] [place] [address] Medical Oncologist/Winch Runner Medical Oncology 10/23/17 [place] [address] [facility] [address] [place] [address] Surgeon Orthopedic Surgery 10/23/17 [place] [address] [facility] [address] [place] [address] Consulting Physician Pain Management 10/23/17 [place] [address] [facility] [address] [place] [address] Referring Physician General Surgery 01/26/18 [place] [address] [facility] [address] [place] [address] Consulting Physician Neurology 01/26/18 documented as of this encounter
--- OUTSIDE RECORDS SUMMARY | 2024-04-26 04:22 | XMS_ITS | Encounter Summary ---
Author Organization [facility] Address [address] [place] [address] Phone Care Team Providers Care Clinic Physician Director Name Role Phone Liu Jerez MD Unavailable Albert Corbin MD Unavailable [phone] Justen Gale MD Primary Care Provider Khris Arthur MD Unavailable [phone] Ko Melendez MD Unavailable John Paul Moyer MD Unavailable Annel Rod MD Unavailable Anali MARSHALL MD, Carlos M. 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 She states she already sees a pain management doctor who gives her injections to her SI joint so she will continue to follow with him. Per Dr Camarillo, she can start zometa now and will get this every 6 months. Karly agreeable to this, will get her scheduled. documented in this encounter Plan of Treatment Not on file documented as of this encounter Visit Diagnoses Not on filedocumented in this encounter Care Teams Clinic Physician Director Relationship Specialty Start Date End Date Justen Gale MD 2 [facility] [address] [place] [address] PCP - General 10/09/17 Liu Jerez MD Consulting Physician Gastroenterology 07/28/17 [place] [address] [facility] [address] [place] [address] Consulting Physician Pulmonary Disease 08/03/17 Khris Arthur MD 4921 [facility] [address] [place] [address] Medical Oncologist/Operational Trainer Medical Oncology 10/23/17 [place] [address] [facility] [address] [place] [address] Surgeon Orthopedic Surgery 10/23/17 [place] [address] [address] Consulting Physician Pain Management 10/23/17 [place] [address] [facility] [address] [place] [address] Referring Physician General Surgery 01/26/18 [place] [address] [facility] [address] [place] [address] Consulting Physician Neurology 01/26/18 documented as of this encounter
--- OUTSIDE RECORDS SUMMARY | 2024-04-26 04:22 | XMS_ITS | Encounter Summary ---
Author Organization [facility] Address [address] [place] [address] Phone Care Team Providers Care Vineyardist Name Role Phone Liu Jerez MD Unavailable [phone] Albert Corbin MD Unavailable Justen Gale MD Primary Care Provider Khris Arthur MD Unavailable [phone] Ko Melendez MD Unavailable John Paul Moyer MD Unavailable Annel Rod MD Unavailable Anali MARSHALL MD, Carlos M. 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 [facility] asking for call back. documented in this encounter Plan of Treatment Not on file documented as of this encounter Visit Diagnoses Not on filedocumented in this encounter Care Teams Vineyardist Relationship Specialty Start Date End Date Justen Gale MD 2 [facility] [address] [place] [address] PCP - General 10/09/17 Liu Jerez MD Consulting Physician Gastroenterology 07/28/17 [place] [address] [facility] [address] [place] [address] Consulting Physician Pulmonary Disease 08/03/17 Khris Arthur MD 4921 [facility] [address] [place] [address] Medical Oncologist/Planning Advisor Medical Oncology 10/23/17 [place] [address] [facility] [address] [place] [address] Surgeon Orthopedic Surgery 10/23/17 [place] [address] [address] Consulting Physician Pain Management 10/23/17 [place] [address] [address] Referring Physician General Surgery 01/26/18 [place] [address] [facility] [address] [place] [address] Consulting Physician Neurology 01/26/18 documented as of this encounter
--- OUTSIDE RECORDS SUMMARY | 2024-04-26 04:22 | XMS_ITS | Encounter Summary ---
Author Organization [facility] Address [address] [place] [address] Phone Care Team Providers Care Ibm Mainframe Systems Programmer Name Role Phone Liu Jerez MD Unavailable Albert Corbin MD Unavailable Justen Gale MD Primary Care Provider Khris Arthur MD Unavailable [phone] Ko Melendez MD Unavailable [phone] John Paul Moyer MD Unavailable Annel Rod MD Unavailable Anali MARSHALL MD, Carlos M. 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 I called her back and left a VM tellingher to call me back as soon as possible and that we want her evaluated at the ED. Will try calling back in 15 minutes. Jo RN 1511 documented in this encounter Plan of Treatment Not on file documented as of this encounter Visit Diagnoses Not on filedocumented in this encounter Care Teams Ibm Mainframe Systems Programmer Relationship Specialty Start Date End Date Justen Gale MD [address] [address] PCP - General 10/09/17 Liu Jerez MD Consulting Physician Gastroenterology 07/28/17 [place] [address] [facility] [address] [place] [address] Consulting Physician Pulmonary Disease 08/03/17 Khris Arthur MD 4921 [facility] [address] [place] [address] Medical Oncologist/Area Development Consultant Medical Oncology 10/23/17 [place] [address] [facility] [address] [place] [address] Surgeon Orthopedic Surgery 10/23/17 [place] [address] [address] Consulting Physician Pain Management 10/23/17 [place] [address] [address] Referring Physician General Surgery 01/26/18 [place] [address] [facility] [address] [place] [address] Consulting Physician Neurology 01/26/18 documented as of this encounter
--- OUTSIDE RECORDS SUMMARY | 2024-04-26 04:22 | XMS_ITS | Encounter Summary ---
Author Organization [facility] Healthcare Address [address] [place] [address] Care Team Providers Care Windows And Doors Installer Name Role Phone Liu Jerez MD Unavailable Albert Corbin MD Unavailable Justen Gale MD Primary Care Provider [phone] Khris Arthur MD Unavailable [phone] Ko Melendez MD Unavailable John Paul Moyer MD Unavailable Annel Rod MD Unavailable Anali MARSHALL MD, Carlos M. 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 Gender Identity Not on file Sexual Orientation Not on file documented as of this encounter Last Filed Vital Signs Vital Sign Reading Time Taken Comments Blood Pressure 153/80 09/03/2021 8:41 PM CDT Pulse 77 09/03/2021 8:41 PM CDT Temperature 36.8 ??C (98.3 ??F) 09/03/2021 6:53 PM CD T Respiratory Rate 20 09/03/2021 8:41 PM CDT Oxygen Saturation 98% 09/03/2021 8:41 PM CDT Inhaled Oxygen Concentration - - Weight 125.9 kg (277 lb 9 oz) 09/03/2021 6:49 PM CDT Height 154.9 cm (5' 1 ) 09/03/2021 6:49 PM CDT Body Mass Index 52.44 09/03/2021 6:49 PM CDT documented in this encounter Discharge Instructions * Discharge Instructions* Rosa Cruz PA - 09/03/2021 8:15 PM CDT Please continue your xarelto as prescribed. Follow-up tomorrow for an outpatient ultrasound. Returnto the ED if you develop chest pain or shortness of breath. * Attachments The following attachments cannot be sent through Care Everywhere. * Deep Vein Thrombosis (Discharge Care) (Egyptian) documented in this encounter Medications at Time of Discharge albuterol HFA (PROVENTIL HFA,VENTOLIN HFA,PROAIR HFA) 90 mcg/actuation inhaler Inhale 2 puffs every 6 (six) hours as needed for wheezing or shortness of breath 1 BD Ultra-Fine Short Pen Needle 31 gauge x 5/16 needle USE 6 TIMES DAILY DIRECTED 2 blood glucose diagnostic (NComputing Ultra Test) strip 4 (four) times a [...] mg capsule Cymbalta 20 mg capsule,delayed release 05/22/2 022 exemestane (AROMASIN) 25 mg tabletIndications:M alignant neoplasm [...] by mouth every 6 (six) hours 2 HYDROcodone-acetami nophen (NORCO) 5-325 mg per tabletIndications:P ain Take by mouth. 8 hydrOXYzine (ATARAX) 25 mg tablet hydroxyzine HCl 25 mg tablet ibuprofen (ADVIL,MOTRIN) 600 mg tablet ibuprofen 600 mg tablet TK 1 T PO Q 6 H PRN insulin glargine (LANTUS) 100 unit/mL injection Inject 40 Units under the skin daily. Takes in the morning 8 insulin lispro (HumaLOG) 100 unit/mL injection Inject [...] tablet morphine 15 mg immediate release tablet 05/22/2 022 mupirocin (BACTROBAN) 2 % ointment mupirocin 2 % topical ointment ondansetron ODT (ZOFRAN-ODT) 4 mg disintegrating tabletIndications:N ausea Take 1 tablet (4 mg total) by mouth every 8 (eight) hours as needed for nausea or vomiting 20 tablet 2 oxybutynin (DITROPAN) 5 mg tablet take 1 tablet by oral route every day [address] (PROTONIX) 40 mg EC tablet [...] ED Notes * Rosa Cruz PA - 09/03/2021 6:56 PM CDT HPI Chief Complaint Patient presents with ??? Leg Pain HPI 8:32 PM Karly Marques is a 66 y.o. female presenting to the ED c/o left lower leg pain today. Pt reports that she has a Hx of DVT and PEs secondary to hx of breast cancer. Pt is already on xarelto which she has been taking as prescribed. Called her PCP's office and told to present to the ED forfurther evaluation. Denies chest pain or shortness of breath. No known injury. Patient History: Past Medical History: Diagnosis Date [...] Alcohol use: No ??? Drug use: No No current facility-administered medications for this encounter. Current Outpatient Medications: ??? acetaminophen-codeine (TYLENOL with CODEINE #3) 300-30 mg per tablet ??? albuterol HFA (PROVENTIL HFA,VENTOLIN HFA,PROAIR HFA) 90 mcg/actuation inhaler ??? amitriptyline (ELAVIL) 25 mg tablet ??? aspirin 325 mg tablet ??? baclofen (LIORESAL) 10 mg tablet ??? BD Ultra-Fine Short Pen Needle 31 gauge x 5/16 needle ??? blood glucose diagnostic (Makelight InteractiveTouch Ultra Test) strip ??? clonazePAM (KlonoPIN) 1 [...] HYDROcodone-acetaminophen (NORCO) 5-325 mg per tablet ??? hydrOXYzine (ATARAX) 25 [...] tablet Review of Systems Review of Systems Musculoskeletal: Left lower leg pain All systems reviewed and are neg or non contributory for this patients presentation today other than as stated in the HPI . Physical Exam ED Triage Vitals Temp Pulse Resp BP SpO2 09/03/21185209/03/21185209/03/21185209/03/21185209/03/211852 36.8 ??C (98.3 ??F) 91 18 166/84 99 % Temp src Heart Rate Source Patient Position BP Location FiO2 (%) 09/03/211852 -- -- -- -- Oral Height Height Method Weight Weight Method 09/03/21184809/03/21184809/03/21184809/03/211848 1.549 m (5' 1 ) Stated 125.9 kg (277 lb 9 oz) Standing scale Physical Exam Vitals and nursing note reviewed. Constitutional: General: She is not in acute distress. Appearance: She is obese. She is not ill-appearing or toxic-appearing. HENT: Head: Normocephalic and atraumatic. Eyes: General: No scleral icterus. Cardiovascular: Rate and Rhythm: Normal rate. Comments: Palpable DP pulses bilaterally Pulmonary: Effort: Pulmonary effort is normal. No respiratory distress. Breath sounds: Normal breath sounds. No wheezing. Musculoskeletal: Cervical back: Neck supple. Comments: Patient reports left calf tenderness. No erythema. Difficult to determine swelling secondary to body habitus. Normal active range of motion of the left knee and ankle Skin: General: Skin is warm and dry. Neurological: Mental Status: She is alert and oriented to person, place, and time. Psychiatric: Mood and Affect: Mood normal. Behavior: Behavior normal. Procedures [facility] Labs Reviewed - No data to display XR Tibia Fibula Left 2 Views Final Result XR Knee Left 1 or 2 Views Final Result BP 166/84 Pulse 91 Temp 36.8 ??C (98.3 ??F) (Oral) Resp 18 Ht 154.9 cm (5' 1 ) Wt 125.9 kg (277 lb 9 oz) SpO2 99% BMI 52.44 kg/m?? MDM ?? X-ray shows severe arthritis of the left knee but no osseous abnormality of the left knee or lower leg ?? Patient already on Xarelto and has not missed a dose. Will discharge with outpatient ultrasound order for tomorrow and instructions to continue Xarelto. Patient already has [place] at home for pain.Discussed warning signs and when to return to the ED to include signs/symptoms of PE. This examination was transcribed using the Yesmail voice recognition system without human hearing aid dispenser. In an effort to expedite patient care, this report has not been adjusted for typographical, grammatical, and syntax by a trained director of medical staff services. Close outpatient follow-up with a low threshold to return has been mandated , concerning symptoms have been emphasized in detail, and this patient expresses understanding Clinical Impression: Left leg pain Arthritis of left knee Rosa Cruz PA 09/03/212010 Rosa Cruz PA 09/03/212031 Cosigned by Lior Bowen MD at 09/03/2021 10:38 PM CDT Associated attestation - Lior Bowen MD - 09/03/2021 10:38 PM CDT ED Attestation I did not see this patient. However, I was personally available for consultation in the ED for thispatient if the Advanced Practice Provider (ERIC) needed any assistance. The ERIC evaluated the patient independently and completed their own examination, documentation, and disposition. * Analy Mcmillan RN - 09/03/2021 6:52 PM CDT C/o left lower leg pain and swelling. Onset yesterday. Hx of dvt's and pe's. documented in this encounter Plan of Treatment Not on file documented as of this encounter Procedures Procedure Name Priority Date/Time Associated Diagnosis Comments XR TIBIA FIBULA LEFT 2 VIEWS ED 09/03/2021 7:10 PM CDT XR KNEE LEFT 1 OR 2 VIEWS ED 09/03/2021 7:10 PM CDT documented in this encounter Results * XR Knee Left 1 or 2 Views (09/03/2021 7:10 PM CDT) Anatomical Region Laterality Modality Lower Extremities, Knee Left Computed Radiography 09/03/2021 7:57 PM CDT Narrative 09/03/2021 7:58 PM CDT EXAM DESCRIPTION: ? XR KNEE LEFT 1 OR 2 VIEWS REASON FOR STUDY: ?? pain, no known injury ?? C/o left lower leg pain and swelling. ??Onset yesterday. ??Hx of dvt's and pe's. ?? TECHNIQUE: ?? AP and lateral ??radiographic views acquired of the left knee. COMPARISON: ?? None FINDINGS: BONES/JOINTS: ?? No fracture or bone destruction was seen. ?There is severe arthritis with asymmetric joint space narrowing and osteophyte formation. SOFT TISSUES: ?? Unremarkable. OTHER: ?? No other significant finding. IMPRESSION: 1. ??Severe arthritis 2. ?? No acute osseous abnormality. THIS IS AN ELECTRONICALLY VERIFIED FINAL REPORT 09/03/2021 7:58 PM - Electronically signed by ??Sen DENSON: JANIYA D: ??09/03/2021 7:58 PM T: ??09/03/2021 7:58 PM Report ID: [id number] Reading Location: ??[id number] Procedure Note Dillon Sy MD - 09/03/2021 EXAM DESCRIPTION: XR KNEE LEFT 1 OR 2 VIEWS REASON FOR STUDY: pain, no known injury C/o left lower leg pain and swelling. Onset yesterday. Hx of dvt's andpe's. TECHNIQUE: AP and lateral radiographic views acquired of the leftknee. COMPARISON: None FINDINGS: BONES/JOINTS: No fracture or bone destruction was seen.There is severe arthritis with asymmetric joint space narrowing and osteophyte formation. SOFT TISSUES: Unremarkable. OTHER: No other significant finding. IMPRESSION: 1. Severe arthritis 2. No acute osseous abnormality. THIS IS AN ELECTRONICALLY VERIFIED FINAL REPORT 09/03/2021 7:58 PM - Electronically signed by Sen Sy M.D. JANIYA: JANIYA Report ID: [id number] Reading Location: [place] [address] Rosa MCKEON IMG XR PROCEDURES Final Result * XR Tibia Fibula Left 2 Views (09/03/2021 7:10 PM CDT) Anatomical Region Laterality Modality Lower Extremities, Lower Leg Left Com puted Radiography 09/03/2021 7:58 PM CDT Narrative 09/03/2021 7:59 PM CDT EXAM DESCRIPTION: ?? XR TIBIA FIBULA LEFT 2 VIEWS REASON FOR STUDY: ?? pain, no known injury. 'Hx of cancer ?? C/o left lower leg pain and swelling. ??Onset yesterday. ??Hx of dvt's and pe's. ?? TECHNIQUE: ?? Two ??views acquired of the left tibia and fibula. COMPARISON: ?? None FINDINGS: BONES: ?? No acute fracture. No suspicious bone lesions. ??Severe arthritis is seen in the knee. SOFT TISSUES: ?? Unremarkable. OTHER: ?? No other significant finding. IMPRESSION: ?? No acute osseous abnormality. THIS IS AN ELECTRONICALLY VERIFIED FINAL REPORT 09/03/2021 7:59 PM - Electronically signed by ??Sen DENSON: JANIYA D: ??09/03/2021 7:59 PM T: ??09/03/2021 7:59 PM Report ID: [id number] Reading Location: ??[id number] Procedure Note Dillon Sy MD - 09/03/2021 EXAM DESCRIPTION: XR TIBIA FIBULA LEFT 2 VIEWS REASON FOR STUDY: pain, no known injury. 'Hx of cancer C/o left lower leg pain and swelling. Onset yesterday. Hx of dvt's andpe's. TECHNIQUE: Two views acquired of the left tibia and fibula. COMPARISON: None FINDINGS: BONES: No acute fracture. No suspicious bone lesions. Severe arthritis is seen in the knee. SOFT TISSUES: Unremarkable. OTHER: No other significant finding. IMPRESSION: No acute osseous abnormality. THIS IS AN ELECTRONICALLY VERIFIED FINAL REPORT 09/03/2021 7:59 PM - Electronically signed by Sen DENSON: JANIYA Report ID: [id number] Reading Location: [id number] Rosa MCKEON IMMichael XR PROCEDURES Final Result documented in this encounter Visit Diagnoses Diagnosis Left leg pain- Primary Pain in soft tissues of limb Arthritis of left knee documented in this encounter Administered Medications Inactive Administered Medications - up to 3 most recent administrations Medication Order MAR Action Action Date Dose Rate Site HYDROcodone-acetaminophen (NORCO) 5-325 mg per tablet 1 tablet 1 tablet, oral, Once, On Mon09/03/21 at 2008, For 1 dose, Indications: PainIndications:Pain Given 09/03/2021 8:16 PM CDT 1 tablet documented in this encounter Active and Recently Administered Medications Times are shown in CDT. Scheduled Medication Order 09/01/2021 09/02/2021 09/03/2021 HYDROcodone-acetaminophen (NORCO) 5-325 mg per tablet 1 tablet (COMPLETED) 1 tablet, oral, Once, On Mon09/03/21 at 2008, For 1 dose, Indications: Pain 2016 (Given - Provid er: Christin Abdalla RN) documented in this encounter Orders Medications Ordered That Tyler ht Not Have Been Administered Count Last Ordered Date First Ordered Date HYDROcodone-acetaminophen (N ORCO) 5-325 mg per tablet 1 tablet 1 09/03/2021 documented in this encounter Care Teams Windows And Doors Installer Relationship Specialty Start Date End Date Justen Gale MD 2 [facility] [address] [place] [address] PCP - General 10/09/17 Liu Jerez MD Consulting Physician Gastroenterology 07/28/17 [place] [address] [address] [facility] [address] [place] [address] Consulting Physician Pulmonary Disease 08/03/17 Khris Arthur MD [address] [facility] [address] [place] [address] Medical Oncologist/Non Destructive Testing Inspector Medical Oncology 10/23/17 [place] [address] [facility] [address] [place] [address] Surgeon Orthopedic Surgery 10/23/17 [place] [address] [facility] [address] [place] [address] Consulting Physician Pain Management 10/23/17 [place] [address] [facility] [address] [place] [address] Referring Physician General Surgery 01/26/18 [place] [address] [facility] [address], [place] [address] Consulting Physician Neurology 01/26/18 documented as of this encounter
--- OUTSIDE RECORDS SUMMARY | 2024-04-26 04:22 | XMS_ITS | Encounter Summary ---
Author Organization [facility] Address [address] [place] [address] Phone Care Team Providers Care Senior Game Advisor Name Role Phone Liu Jerez MD Unavailable Albert Corbin MD Unavailable Justen Gale MD Primary Care Provider Khris Arthur MD Unavailable [phone] Ko Melendez MD Unavailable John Paul Moyer MD Unavailable [phone] Annel Rod MD Unavailable Anali MARSHALL MD, Carlos M. 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 Gender Identity Not on file Sexual Orientation Not on file documented as of this encounter Miscellaneous Notes * Telephone Encounter - Lisa Good MA - 07/23/2021 12:13 PM CDT Left Message - I called patient to reshedule her (NO SHOW) appointment on 07/06/21 left voice mail to call us to reshedule By Lisa Good MA documented in this encounter Plan of Treatment Not on file documented as of this encounter Visit Diagnoses Not on filedocumented in this encounter Care Teams Senior Game Advisor Relationship Specialty Start Date End Date Justen Gale MD [address] [address] PCP - General 10/09/17 Liu Jerez MD Consulting Physician Gastroenterology 07/28/17 [place] [address] [facility] [address] [place] [address] Consulting Physician Pulmonary Disease 08/03/17 Khris Arthur MD [address] [facility] [address] [place] [address] Medical Oncologist/Shell Assembler Medical Oncology 10/23/17 [place] [address] [facility] [address] [place] [address] Surgeon Orthopedic Surgery 10/23/17 [place] [address] [address] Consulting Physician Pain Management 10/23/17 [place] [address] [address] Referring Physician General Surgery 01/26/18 [place] [address] [facility] [address] [place] [address] Consulting Physician Neurology 01/26/18 documented as of this encounter
--- OUTSIDE RECORDS SUMMARY | 2024-04-26 04:22 | XMS_ITS | Encounter Summary ---
Author Organization [facility] Address [address] [place] [address] Phone Care Team Providers Care Stator Plate Washer Name Role Phone Liu Jerez MD Unavailable Albert Corbin MD Unavailable [phone] Justen Gale MD Primary Care Provider Khris Arthur MD Unavailable [phone] Ko Melendez MD Unavailable [phone] John Paul Moyer MD Unavailable Annel Rod MD Unavailable Anali MARSHALL MD, Carlos M. 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 Gender Identity Not on file Sexual Orientation Not on file documented as of this encounter Plan of Treatment Not on file documented as of this encounter Results * Comprehensive metabolic panel (09/07/2021 1:18 PM CDT) Sodium 135 135 - 145 mmol/L CERPU[facility] Comment:Testing performed by : [facility], [address] [place] [phone] Potassium, pl 4.9 3.3 - 4.9 mmol/L [facility] Comment:Testing performed by : [address] [address] Chloride 99 97 - 110 mmol/L [facility] Comment:Testing performed by : [address] [address] CO2 30 22 - 32 mmol/L [facility] Comment:Testing performed by : [address] [address] Anion gap 6 2 - 15 mmol/L [facility] Comment:Testing performed by : [address] [address] BUN 18 8 - 25 mg/dL [facility] Comment:Testing performed by : [address] [address] Creatinine 0.82 0.60 - 1.10 mg/dL [facility] Comment:Testing performed by : [address] [address] Glucose 158 70 - 199 mg/dL [facility] Comment: Interpretive Data Fasting glucose >/= [...] was last revised 2017. Testing performed by: [facility], [address] [place] [address] Calcium 9.9 8.5 - 10.3 mg/dL CERNER [facility] Comment:Testing performed by : [facility], [address] [place] [phone] Bilirubin, total 0.8 0.1 - 1.2 mg/dL [facility] Comment:Testing performed by : [facility], [address] [place] [phone] Protein, pl 7.9 6.5 - 8.5 g/dL CERNER [facility] Comment:Testing performed by : [facility], [address] [place] [address] Albumin 4.1 3.5 - 5.0 g/dL [facility]ER [facility] Comment:Testing performed by : [address] [address] Alk phos 87 40 - 130 Units/L C[facility]ER [facility] Comment:Testing performed by : [address] [address] ALT 16 7 - 45 Units/L [facility] Comment:Testing performed by : [facility], [address] [place] [address] AST 15 10 - 45 Units/L [facility] Comment:Testing performed by : [facility], [address] [place] [address] Blood 09/07/2021 1:18 PM CDT 09/07/2021 1:20 PM CDT us Khris Arthur MD LAB BLOOD ORDERABLES Final Result [facility] One [facility] Department [place] [address] documented in this encounter Visit Diagnoses Diagnosis Malignant neoplasm of upper-inner quadrant of left breast in female, estrogen receptor positive (HCC)- Primary documented in this encounter Care Teams Stator Plate Washer Relationship Specialty Start Date End Date Justen Gale MD 2 [facility] [address] [place] [address] PCP - General 10/09/17 Liu Jerez MD Consulting Physician Gastroenterology 07/28/17 [place] [address] [facility] [address] [place] [address] Consulting Physician Pulmonary Disease 08/03/17 Khris Arthur MD 49[address] [facility] [address] [place] [address] Medical Oncologist/It Assistant Medical Oncology 10/23/17 [place] [address] [facility] [address] [place] [address] Surgeon Orthopedic Surgery 10/23/17 [place] [address] [facility] [address] [place] [address] Consulting Physician Pain Management 10/23/17 [place] [address] [facility] [address] [place] [address] Referring Physician General Surgery 01/26/18 [place] [address] [facility] [address] [place] [address] Consulting Physician Neurology 01/26/18 documented as of this encounter
--- OUTSIDE RECORDS SUMMARY | 2024-04-26 04:22 | XMS_ITS | Encounter Summary ---
Author Organization [facility] Address [address] [place] [address] Phone Care Team Providers Care Cinema Or Theatre Manager Name Role Phone Liu Jerez MD Unavailable [phone] Albert Corbin MD Unavailable Justen Gale MD Primary Care Provider Khris Arthur MD Unavailable [phone] Ko Melendez MD Unavailable [phone] John Paul Moyer MD Unavailable Annel Rod MD Unavailable Anali MARSHALL MD, Carlos M. 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 Asked for call back to confirm she gets this message. ----- Message from Jeanine Ba MA sent at 11/17/2020 9:08 AM CDT ----- Regarding: Leg pain f/u Pt returned your call regarding the pain she was having in her legs. She left a message stating that she did not go to the ER because she says they will just tell her to follow up with her PCP and not really treat her for the pain. She says the pain in her legs are unbearable and she can hardly sleep at night. She doesn't know what to do at this point and says she will just have to deal with the pain. Would like a call back. documented in this encounter Plan of Treatment Not on file documented as of this encounter Visit Diagnoses Not on filedocumented in this encounter Care Teams Cinema Or Theatre Manager Relationship Specialty Start Date End Date Justen Gale MD [address] [address] PCP - General 10/09/17 Liu Jerez MD Consulting Physician Gastroenterology 07/28/17 [place] [address] [facility] [address] [place] [address] Consulting Physician Pulmonary Disease 08/03/17 Khris Arthur MD 49[address] [facility] [address] [place] [address] Medical Oncologist/Orthopedics Pediatric Physician Medical Oncology 10/23/17 [place] [address] [facility] [address] [place] [address] Surgeon Orthopedic Surgery 10/23/17 [place] [address] [facility] [address] [place] [address] Consulting Physician Pain Management 10/23/17 [place] [address] [facility] [address] [place] [address] Referring Physician General Surgery 01/26/18 [place] [address] [facility] [address] [place] [address] Consulting Physician Neurology 01/26/18 documented as of this encounter
--- OUTSIDE RECORDS SUMMARY | 2024-04-26 04:22 | XMS_ITS | Encounter Summary ---
Author Organization [facility] Address [address] [place] [address] Phone Care Team Providers Care Termination Clerk Name Role Phone Liu Jerez MD Unavailable Albert Corbin MD Unavailable Justen Gale MD Primary Care Provider Khris Arthur MD Unavailable [phone] Ko Melendez MD Unavailable John Paul Moyer MD Unavailable Annel Rod MD Unavailable Anali MARSHALL MD, Carlos M. Unavailable Reason for Visit * Reason Onset Date Comments Returning Call 11/17/2020 Encounter Details Date Type Department Care Team (Late st Contact Info) Description 11/17/2020 Telephone [facility] Oncology [address] [facility] 7th [place] [address] [place] [address] Jeanine Ba [facility] Returning Call Social History Tobacco Use Types Packs/Day Years Used Date Smoking Tobacco: Former Smokeless Tobacco: Never Comments:remote tobacco use Alcohol Use Standard Drinks/Week Comments No 0 (1 standard drink = 0.6 oz pur e alcohol) PHQ-2 Answer Date Recorded PHQ-2 Score 1 12/15/2018 Comments No Sex and Gender Information Value Date Recorded Sex Assigned at Not on file 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 She left a message stating that she did not go to the ER because she says they will just tell her follow up with her PCP and not really treat her for the pain. She says the pain in her legs are unbearable and she can hardly sleep at night. She doesn't know what to do at this point and says she will just have to deal with the pain. Would like a call back. Message forwarded to Nurse Garcia. documented in this encounter Plan of Treatment Not on file documented as of this encounter Visit Diagnoses Not on filedocumented in this encounter Care Teams Termination Clerk Relationship Specialty Start Date End Date Justen Gale MD [address] [address] PCP - General 10/09/17 Liu Jerez MD Consulting Physician Gastroenterology 07/28/17 [place] [address] [facility] [address] [place] [address] Consulting Physician Pulmonary Disease 08/03/17 Khris Arthur MD [address] [facility] [address] [place] [address] Medical Oncologist/Head Sugar Reprocess Operator Medical Oncology 10/23/17 [place] [address] [facility] [address] [place] [address] Surgeon Orthopedic Surgery 10/23/17 [place] [address] [facility] [address] [place] [address] Consulting Physician Pain Management 10/23/17 [place] [address] [facility] [address] [place] [address] Referring Physician General Surgery 01/26/18 [place] [address] [facility] [address] [place] [address] Consulting Physician Neurology 01/26/18 documented as of this encounter
--- OUTSIDE RECORDS SUMMARY | 2024-04-26 04:22 | XMS_ITS | Encounter Summary ---
Author Organization [facility] Address [address] [place] [address] Phone Care Team Providers Care Community Health Advisor Name Role Phone Liu Jerez MD Unavailable Albert Corbin MD Unavailable [phone] Justen Gale MD Primary Care Provider Khris Arthur MD Unavailable [phone] Ko Melendez MD Unavailable John Paul Moyer MD Unavailable [phone] Annel Rod MD Unavailable Anali MARSHALL MD, Carlos M. Unavailable [phone] Reason for Referral * Diagnostic Imaging (Routine) - Closed Specialty Diagnoses / Procedures Referred By Contac t Referred To Contact Diagnoses Malignant neoplasm of upper-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, unspecified estrogen receptor status (HCC) Procedures Dexa Axial Skeleton Bone Density 1 or 2 Site Khris Arthur MD [address] [facility] [address] [place] [address] Phone: tel: fax: [facility] (All Locations) Referral ID Status Reason Start Date Expiration Date Visits Re quested Visits Authorized [id number] Closed 09/07/2021 10/07/2022 1 1 Reason for Visit * Oncology (Routine) - Closed Specialty Diagnoses / Procedures Referred By Contac t Referred To Contact Oncology Diagnoses Malignant neoplasm of overlapping sites of left female breast, unspecified estrogen receptor status (HCC) Justen Gale MD 2 [place] [address] Phone: tel: fax: Khris Arthur MD Phone: tel: fax: Referral ID Status Reason Start Date Expiration Date V isits Requested Visits Authorized [id number] Closed Specialty Services Required 10/18/2019 04/23/2024 99 99 Encounter Details Date Type Department Care Team (Late st Contact Info) Description 09/07/2021 2:00 PM CDT Office Visit [facility] Oncology [address] [facility] 7th [place] [address] [place] [address] Khris Arthur MD [address] [facility] [address] [place] [address] Malignant neoplasm of upper-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, unspecified estrogen receptor status (HCC) (Primary Dx) Social History Tobacco Use [...] on file 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[employer] Gender Identity Not on file Sexual Orientation Not on file documented as of this encounter Last Filed Vital Signs Vital Sign Reading Time Taken Comments Blood Pressure 136/83 09/07/2021 1:44 PM CDT Pulse 76 09/07/2021 1:44 PM CDT Temperature 36.2 ??C (97.1 ??F) 09/07/2021 1:42 PM CD T forehead Respiratory Rate 20 09/07/2021 1:42 PM CDT Oxygen Saturation 97% 09/07/2021 1:44 PM CDT Inhaled Oxygen Concentration - - Weight 130.5 kg (287 lb 12.8 oz) 09/07/2021 1:42 PM CDT Height - - Body Mass Index 54.38 09/03/2021 6:49 PM CDT documented in this encounter Ordered Prescriptions Prescription Sig Dispense Quantity Refills Last Filled Start Date End Date enoxaparin (LOVENOX) 40 mg/0.4 mL syringe Inject 0.4 mL (40 mg total) under the skin every 12 (twelve) hours for 4 days Start 5 days before surgery, stop 24 hours before surgery. 3.2 mL 08/19/2021 08/23/2021 documented in this encounter Progress Notes * Marlyn Freire, CURTIS - 09/07/2021 2:00 PM CDT Oncology Progress Note REASON FOR [...] in the left carcinoma were ER 8, IA 8, HER-2 negative. 3. Cytology on 07/21/2014 [...] of left female breast (CMS/HCC) (HCC) 10/13/2017 Initial Diagnosis Cancer of overlapping sites of left female breast (CMS/HCC) Subjective Interval History Karly Marques returns today for routine oncologic care, last seen in October of 2020. She reports compliance with her exemestane and denies related side effects. Dexa in October 2020 showed osteopenia.Zometa given on 01/05/2021 and patient reports she did not tolerate this well at all. Continues to have significant orthopedic pains, especially in her back, and is scheduled for surgery on 09/16/21. She continues on Xarelto for history of multiple blood clots - plans to bridge to her surgery with lovenox for 4 days, then hold for 24 hours prior to surgery. She recently went to the ED for left lower leg pain. Xrays negative. Dopplers not performed. She reports the pain has slightly improved still then, but does continue. She reports pain with walking, better at rest. Also reports increase in swelling of her left calf. Feels she also has increased swelling and warmth of her left arm. Says she contacted her PCP who is trying to set her up for dopplers. She has no other complaints. Review of [...] throat swelling Outpatient Encounter Medications as of 09/07/2021: ??? acetaminophen-codeine (TYLENOL with CODEINE #3) 300-30 mg per tablet, acetaminophen 300 mg-codeine 30 mg tablet, Disp: , Rfl: ??? albuterol HFA (PROVENTIL HFA,VENTOLIN HFA,PROAIR HFA) 90 mcg/actuation inhaler, INHALE 2 PUFFS INTO LUNGS BY MOUTH EVERY 4 HOURS NEEDED FOR WHEEZING OR SHORTNESS OF BREATH, Disp: , Rfl: ??? amitriptyline (ELAVIL) 25 mg tablet, Take 25 mg by mouth nightly, Disp: , Rfl: ??? aspirin 325 mg tablet, Take 325 mg by mouth daily, Disp: , Rfl: ??? baclofen (LIORESAL) 10 mg tablet, baclofen 10 mg tablet, Disp: , Rfl: ??? BD Ultra-Fine Short Pen Needle 31 gauge x 5/16 needle, USE 6 TIMES DAILY DIRECTED, Disp: , Rfl: ??? blood glucose diagnostic (OneTouch Ultra Test) strip, 4 (four) times a day, Disp: , Rfl: ??? clotrimazole-betamethasone (LOTRISONE) cream, clotrimazole-betamethasone 1 %-0.05 % topical cream APPLY TOPICALLY TO AFFECTED AND SURROUNDING AREAS BID IN THE MORNING AND EVENING X 2 WEEKS, Disp:, Rfl: ??? dapagliflozin (FARXIGA) 5 mg tablet, daily, Disp: , Rfl: ??? dexAMETHasone (DECADRON) 4 mg tablet, dexamethasone 4 mg tablet TAKE TWO TABLETS PO IN THE MORNING DAY AFTER CHEMO WHICH IS DAY 2 TAKE TWO TABLETS IN MORNING AND TWO TABLETS AT NIGHT ON DAY 3 AND4, Disp: , Rfl: ??? dextromethorphan (DELSYM) syrup 30 mg/5 mL, Take 30 mg by mouth every 12 (twelve) hours as needed, Disp: , Rfl: ??? DULoxetine DR (CYMBALTA) 20 mg capsule, Cymbalta 20 mg capsule,delayed release, Disp: , Rfl: ??? exemestane (AROMASIN) 25 mg tablet, Take 1 tablet (25 mg total) by mouth nightly, Disp: 90 tablet, Rfl: 0 ??? famotidine (PEPCID) 20 mg tablet, Take 20 mg by mouth 2 (two) times a day, Disp: , Rfl: ??? gabapentin (NEURONTIN) 300 mg capsule, gabapentin 300 mg capsule, Disp: , Rfl: ??? HYDROcodone-acetaminophen (NORCO) 5-325 mg per tablet, Take by mouth., Disp: , Rfl: ??? HYDROcodone-acetaminophen (NORCO) 7.5-325 mg per tablet, Take 1 tablet by mouth every 6 (six) hours, Disp: , Rfl: ??? hydrOXYzine (ATARAX) 25 mg tablet, hydroxyzine HCl 25 mg tablet, Disp: , Rfl: ??? ibuprofen (ADVIL,MOTRIN) 600 mg tablet, ibuprofen 600 mg tablet TK 1 T PO Q 6 H PRN, Disp: , Rfl: ??? insulin glargine (LANTUS) 100 unit/mL injection, Inject 40 Units under the skin daily. Takes inthe morning (Patient taking differently: Inject 50 Units under the skin daily Takes in the morning), Disp: , Rfl: ??? insulin lispro (HumaLOG) 100 unit/mL injection, Inject 12 Units under the skin 3 (three) times a day before meals. (Patient taking differently: Inject 22 Units under the skin 3 (three) times a day before meals), Disp: , Rfl: ??? lisinopril (PRINIVIL,ZESTRIL) 20 mg tablet, Take 20 mg by mouth., Disp: , Rfl: ??? metoprolol tartrate (LOPRESSOR) 25 mg immediate release tablet, metoprolol tartrate 25 mg tablet, Disp: , Rfl: ??? mirabegron ER (MYRBETRIQ) 25 mg tablet extended release 24 hr, Take 25 mg by mouth daily, Disp:, Rfl: ??? morphine (MSIR) 15 mg tablet, morphine 15 mg immediate release tablet, Disp: , Rfl: ??? mupirocin (BACTROBAN) 2 % ointment, mupirocin 2 % topical ointment, Disp: , Rfl: ??? naloxone (NARCAN) 4 mg/actuation spray,non-aerosol, CALL 911. SPR CONTENTS OF ONE SPRAYER (0.1ML) INTO ONE NOSTRIL. REPEAT IN 2-3 MIN IF SYMPTOMS OF OPIOID EMERGENCY PERSIST, ALTERNATE NOSTRILS, Disp: , Rfl: ??? ondansetron ODT (ZOFRAN-ODT) 4 mg disintegrating tablet, Take 1 tablet (4 mg total) by mouth every 8 (eight) hours as needed for nausea or vomiting, Disp: 20 tablet, Rfl: 0 ??? oxybutynin (DITROPAN) 5 mg tablet, take 1 tablet by oral route every day (Patient taking differently: Take 5 mg by mouth 2 (two) times a day), Disp: 0, Rfl: 0 ??? pantoprazole DR (PROTONIX) 40 mg EC tablet, pantoprazole 40 mg tablet,delayed release, Disp: , Rfl: ??? prochlorperazine (COMPAZINE) 10 mg tablet, prochlorperazine maleate 10 mg tablet, Disp: , Rfl: ??? rivaroxaban (Xarelto) 20 mg tablet, Take 1 tablet (20 mg total) by mouth daily, Disp: 30 tablet, Rfl: 1 ??? rOPINIRole (REQUIP) 5 mg tablet, Take 5 mg by mouth nightly, Disp: , Rfl: ??? selenium sulfide 2.5 % lotion, selenium sulfide 2.5 % shampoo APPLY TO THE AFFECTED AREAS BY TOPICAL ROUTE TWICE WEEKLY LATHER LEAVE ON 10 MINUTES AND RINSE OFF, Disp: , Rfl: ??? sucralfate (CARAFATE) 1 gram tablet, Take 1 g by mouth 4 (four) times a day, Disp: , Rfl: ??? clonazePAM (KlonoPIN) 1 mg tablet, Take 1 tablet (1 mg total) by mouth 2 (two) times a day for 10 days . (Patient not taking: Reported on 08/01/2021), Disp: 20 tablet, Rfl: 0 ??? [] enoxaparin (LOVENOX) 40 mg/0.4 mL syringe, Inject 0.4 mL (40 mg total) under the skinevery 12 (twelve) hours for 4 days Start 5 days before surgery, stop 24 hours before surgery., Disp: 3.2 mL, Rfl: 0 ??? [] nitrofurantoin monohydrate (MACROBID) 100 mg capsule, Take 1 capsule (100 mg total) by mouth 2 (two) times a day for 4 days, Disp: 8 capsule, Rfl: 0 ??? [DISCONTINUED] anastrozole (ARIMIDEX) 1 mg tablet, anastrozole 1 mg tablet, Disp: , Rfl: ??? [DISCONTINUED] exemestane (AROMASIN) 25 mg tablet, TAKE 1 TABLET(25 MG) BY MOUTH DAILY AFTER A MEAL (Patient taking differently: Take 25 mg by mouth nightly), Disp: 90 tablet, Rfl: 0 ??? [DISCONTINUED] ondansetron ODT (ZOFRAN-ODT) 4 mg disintegrating tablet, , Disp: , Rfl: ??? [DISCONTINUED] rivaroxaban (Xarelto) 20 mg tablet, Take 1 tablet (20 mg total) by mouth daily (Patient taking differently: Take 20 mg by mouth nightly), Disp: 30 tablet, Rfl: 4 Past Medical History: Diagnosis Date ??? Adiposity [...] 10/24/2014 Objective Vitals: Most Recent : BP: 136/83 Temp: 36.2 ??C (97.1 ??F) (forehead) Temp src: Transdermal Pulse: 76 Resp: 20 SpO2: 97 % Weight: 130.5 kg (287 lb 12.8 oz) Physical Exam: Performance Status: ECOG 1 General: [...] nondistended. No hepatosplenomegaly. Extremities: Left upper arm edema with increased warmth. BLE edema, L>R, with pocket of swellingon her left medial calf. Breasts: Shows surgically absent breasts. No signs of local recurrence. Radiation skin changes noted around sternum. Lab/Radiology/Diagnostic Review: CBC: Hematology Lab History Some values may be hidden. Unless noted otherwise, only the newest values recorded on each date aredisplayed. Labs - Hematology Latest Ref Range 10/29/20 08/01/21 08/02/21 08/16/21 WBC 3.8 - 9.9 K/cumm 9.8 13.3 (A) 13.1 (A) 9.8 Total Hb, POC 11.9 - 15.5 g/dL 12.8 13.9 12.4 14.0 Hct 35.6 - 45.5 % 38.8 44.3 39.4 44.9 Plt 150 - 400 K/cumm 290 297 298 304 Neutrophil abs 1.7 - 6.5 K/cumm 6.3 9.2 (A) 9.0 (A) 6.2 Lymphocytes, abs 0.8 - 3.3 K/cumm 2.3 2.7 2.8 2.5 (A) Abnormal value Comments are available for some flowsheets but are not being displayed. CMP: Lab Results Component Value Date/Time SODIUM 135 09/07/2021 01:18 PM POTASSIUM 4.9 09/07/2021 01:18 PM CO2 30 09/07/2021 01:18 PM BUNSER 18 09/07/2021 01:18 PM GLUCOSE 158 09/07/2021 01:18 PM CREATININE 0.82 09/07/2021 01:18 PM CALCIUM 9.9 09/07/2021 01:18 PM CHLORIDE 99 09/07/2021 01:18 PM ALBUMIN 4.1 09/07/2021 01:18 PM AST 15 09/07/2021 01:18 PM ALT 16 09/07/2021 01:18 PM ALKPHOS 87 09/07/2021 01:18 PM BILITOT 0.8 09/07/2021 01:18 PM PROT 7.9 09/07/2021 01:18 PM ANIONGAP 6 09/07/2021 01:18 PM Radiology: DEXA 11/10/2020 LS 0.2(9.6% decrease)/FN-1.8, TH -1.3 (15.7% decrease) Assessment/Plan Karly Marques is a 66 y.o. female with stage II, ER positive, HER2 negative breast cancer on adjuvant exemestane. She will continue on exemestane, with plans to complete 10 years of therapy. For the swelling and pain in her left leg and left arm, we will order dopplers to assess for new blood clots. If new clots are developing despite her adherence to Xarelto, she may need to transition to lovenox and be considered for an IVC filter. Dopplers cannot be performed today, but are scheduled for tomorrow. She was intolerant of Zometa. Discussed possible referral to bone health. Will plan to repeat DEXA when she returns in 6 months, and consider referral to Bone Health if indicated. She will continue on calcium and vitamin D for now. Calcium levels normal today. Karly Marques will follow up as directed above, she was encouraged to call in the interim with questions or concerns. We will continue to monitor and review for side effects from treatment. Marlyn Gilliam, MSN, AGPCNP- Nurse Practitioner, Medical Oncology documented in this encounter Plan of Treatment Not on file documented as of this encounter Results * Dexa Axial Skeleton Bone Density 1 or 2 Site (08/02/2022 10:53 AM CDT) Anatomical Region Laterality Modality Body N/A Radiographic Lizeth ging Narrative 08/02/2022 3:34 PM CDT Patient Name: Karly Marques Date of : 1955 Date of scan: 08/02/2022 Bone mineral density was performed on a Holo[employer] Discovery Densitometer. ?? Based on machine cross-calibration [...] density scan were prepared by Yesenia Hernandez) MARY ??who is accredited by the International Society of Clinical Densitometry. The overall patient assessment and scan interpretation were performed by Kaylie Castro MD ??who is certified by the International Society of Clinical Densitometry. 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 HYDROcodone-aceta minophen (NORCO) 10-325 mg per tablet Take 1 tablet by mouth every 6 (six) hours 08/20/2021 10/31/2023 added in this encounter Care Teams Community Health Advisor Relationship Specialty Start Date End Date Justen Gale MD [address] [address] PCP - General 10/09/17 Liu Jerez MD Consulting Physician Gastroenterology 07/28/[address] [place] [address] [facility] [address] [place] [address] Consulting Physician Pulmonary Disease 08/03/17 [place] [address] [place] [address] [address] [place] [address] Medical Oncologist/Head Holder Medical Oncology 10/23/[address] [place] [address] [facility] [address] [place] [address] Surgeon Orthopedic Surgery 10/23/17 [place] [address] [facility] [address] [place] [address] Consulting Physician Pain Management 10/23/[address] [place] [address] [facility] [address] [place] [address] Referring Physician General Surgery 01/26/18 [place] [address] [facility] [address] [place] [address] Consulting Physician Neurology 01/26/18 documented as of this encounter
--- OUTSIDE RECORDS SUMMARY | 2024-04-26 04:22 | XMS_ITS | Encounter Summary ---
Author Organization [facility] Address [address] [place] [address] Phone Care Team Providers Care Electrical Project Manager Name Role Phone Liu Jerez MD Unavailable [phone] Albert Corbin MD Unavailable [phone] Justen Gale MD Primary Care Provider Khris Arthur MD Unavailable [phone] Ko Melendez MD Unavailable [phone] John Paul Moyer MD Unavailable Annel Rod MD Unavailable Anali MARSHALL MD, Carlos M. 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 She also stated that she having surgery at the end of August and she has to stop her blood thinner 5 day prior wanted to know if it was ok to do so and should she take Heparin instead. Called to let pt know her Appt 09/07/21 1:00pm labs, 2:00pm rov.No answer left message with info. documented in this encounter Plan of Treatment Not on file documented as of this encounter Visit Diagnoses Not on filedocumented in this encounter Care Teams Electrical Project Manager Relationship Specialty Start Date End Date Justen Gale MD [address] [address] PCP - General 10/09/17 Liu Jerez MD Consulting Physician Gastroenterology 07/28/17 [place] [address] [facility] [address] [place] [address] Consulting Physician Pulmonary Disease 08/03/17 Khris Arthur MD [address] [facility] [address] [place] [address] Medical Oncologist/Macroeconomics Professor Medical Oncology 10/23/17 [place] [address] [facility] [address] [place] [address] Surgeon Orthopedic Surgery 10/23/17 [place] [address] [facility] [address] [place] [address] Consulting Physician Pain Management 10/23/17 [place] [address] [facility] [address] [place] [address] Referring Physician General Surgery 01/26/18 [place] [address] [facility] [address] [place] [address] Consulting Physician Neurology 01/26/18 documented as of this encounter
--- OUTSIDE RECORDS SUMMARY | 2024-04-26 04:22 | XMS_ITS | Encounter Summary ---
Author Organization [facility] Address [address] [place] [address] Phone Care Team Providers Care Trash Collector Supervisor Name Role Phone Liu Jerez MD Unavailable Albert Corbin MD Unavailable [phone] Justen Gale MD Primary Care Provider Khris Arthur MD Unavailable [phone] Ko Melendez MD Unavailable John Paul Moyer MD Unavailable [phone] Annel Rod MD Unavailable Anali MARSHALL MD, Carlos M. 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 ----- Message from Radha Mcgrath RN sent at 02/04/2021 12:48 PM CDT ----- Geovanna from [facility] called wanting to know how long can the pt hold her Xarelto for her tooth extraction. [phone] documented in this encounter Plan of Treatment Not on file documented as of this encounter Visit Diagnoses Not on filedocumented in this encounter Care Teams Trash Collector Supervisor Relationship Specialty Start Date End Date Justen Gale MD [address] [address] PCP - General 10/09/17 Liu Jerez MD Consulting Physician Gastroenterology 07/28/17 [place] [address] [id number] [place] [address] Consulting Physician Pulmonary Disease 08/03/17 Khris Arthur MD [address] [facility] [address] [place] [address] Medical Oncologist/Hide Dyer Medical Oncology 10/23/17 [place] [address] [facility] [address] [place] [address] Surgeon Orthopedic Surgery 10/23/17 [place] [address] [facility] [address] [place] [address] Consulting Physician Pain Management 10/23/17 [place] [address] [facility] [address] [place] [address] Referring Physician General Surgery 01/26/18 [place] [address] [facility] [address] [place] [address] Consulting Physician Neurology 01/26/18 documented as of this encounter
--- OUTSIDE RECORDS SUMMARY | 2024-04-26 04:23 | XMS_ITS | Encounter Summary ---
Author Organization [facility] Address [address] [place] [address] Phone Care Team Providers Care Pageant Director Name Role Phone Liu Jerez MD Unavailable [phone] Albert Corbin MD Unavailable [phone] Justen Gale MD Primary Care Provider [phone] Khris Arthur MD Unavailable [phone] Ko Melendez MD Unavailable [phone] John Paul Moyer MD Unavailable Annel Rod MD Unavailable Anali MARSHALL MD, Carlos M. Unavailable [phone] Reason for Visit * Consultation (Routine) - Closed Specialty Diagnoses / Procedures Referred By Contac t Referred To Contact Hematology Diagnoses Leukocytosis, unspecified type Justen Gale MD [address] [address] Phone: tel: fax: Heaven Carrillo MD Phone: tel: fax: Referral ID Status Reason Start Date Expiration Date V isits Requested Visits Authorized [id number] Closed Specialty Services Required 08/11/2020 02/07/2021 25 25 Encounter Details Date Type Department Care Team (Late st Contact Info) Description 10/29/2020 1:00 PM CDT Office Visit [facility] Hematology [address] [facility] 7th [place] [address] [place] [address] Heaven Carrillo MD [address] [place] [address] Leukocytosis, unspecified type (Primary Dx) Social History Tobacco Use Types [...] on file 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 Gender Identity Not on file Sexual Orientation Not on file documented as of this encounter Last Filed Vital Signs Vital Sign Reading Time Taken Comments Blood Pressure 129/81 10/29/2020 1:07 PM CDT Pulse 91 10/29/2020 1:07 PM CDT Temperature 36.5 ??C (97.7 ??F) 10/29/2020 1:03 PM CD T Respiratory Rate 18 10/29/2020 1:03 PM CDT Oxygen Saturation 97% 10/29/2020 1:07 PM CDT Inhaled Oxygen Concentration - - Weight 133.2 kg (293 lb 9.6 oz) 10/29/2020 1:03 PM CDT Height - - Body Mass Index 55.48 10/02/2020 12:38 PM CDT documented in this encounter Progress Notes * Heaven Carrillo MD - 10/29/2020 1:00 PM CDT HEMATOLOGY CONSULT REASON FOR CONSULT: Leukocytosis REQUESTING PROVIDER: Dr. Justen Gale MD HISTORY OF PRESENT ILLNESS: Karly Marques is a pleasant 65 y.o. women with morbid obesity, history of Stage II breast CA onexemestane, hx of PE on tamoxifen in 2017, HTN, depression, hypothyroidism, sleep apnea, RLS, arthritis, and diabetic gastroparesis who presents to the Hematology clinic for further evaluation of leukcytosis. She presents to clinic unaccompanied. Ms. Marques was noted on her recent routine laboratory testing to have an elevated WBC of 11.1 withdifferential showing predominant neutrophilia. Per her referral note, she was also noted to have anelevated CRP. Review of her prior labs shows that her WBC has been intermittently elevated since atleast 2017. Her recent CBCs have not show any anemia or thrombocytopenia. She has had several recent ED visits for acute on chronic nausea/vomiting and abdominal pain and is scheduled to see GI for further evaluation in November at [facility]. PAST MEDICAL HISTORY/PAST SURGICAL HISTORY: Past Medical History: Diagnosis Date ??? Adiposity [...] US SOFT TISSUE ABSCESS DRAIN N/A 10/24/2014 ALLERGIES: Allergies Allergen Reactions ??? Ceftriaxone Anaphylaxis R [...] (See comments) Shaky, restlessness, itching, throat swelling CURRENT MEDICATIONS: Current Outpatient Medications Medication Sig Dispense Refill ??? amitriptyline (ELAVIL) 25 mg tablet ??? exemestane (AROMASIN) 25 mg tablet Take 1 tablet (25 mg total) by mouth daily After a meal 90 tablet 0 ??? HYDROcodone-acetaminophen (NORCO) 5-325 mg per tablet Take by mouth. ??? insulin glargine (LANTUS) 100 unit/mL injection Inject 40 Units under the skin daily. Takes in the morning ??? insulin lispro (HumaLOG) 100 unit/mL injection Inject 12 Units under the skin 3 (three) times aday before meals. ??? lisinopril (PRINIVIL,ZESTRIL) 20 mg tablet Take 20 mg by mouth. ??? oxybutynin (DITROPAN) 5 mg tablet take 1 tablet by oral route every day 0 0 ??? rivaroxaban (Xarelto) 20 mg tablet Take 1 tablet (20 mg total) by mouth daily 30 tablet 1 ??? rOPINIRole (REQUIP) 5 mg tablet Take 5 mg by mouth. ??? clonazePAM (KlonoPIN) 1 mg tablet Take 1 tablet (1 mg total) by mouth 2 (two) times a day for 10 days . 20 tablet 0 No current facility-administered medications for this visit. SOCIAL HISTORY: Social History Tobacco Use ??? Smoking status: Former Smoker ??? Smokeless tobacco: Never Used ??? Tobacco comment: remote tobacco use Substance Use Topics ??? Alcohol use: No She is and she and her Jimmie has three children. She is disabled. FAMILY HISTORY: Family History Problem Relation Age [...] Other Family history of restless leg syndrome; REVIEW OF SYSTEMS: Review of Systems Constitutional: Positive for appetite change and unexpected weight change. Cardiovascular: Positive for leg swelling. Gastrointestinal: Positive for abdominal pain, constipation, nausea and vomiting. Bloating Musculoskeletal: Positive for arthralgias, back pain and myalgias. Neurological: Positive for numbness. Psychiatric/Behavioral: Positive for sleep disturbance. All other systems reviewed and are negative. Objective VITALS: Vitals BP 129/81 Pulse 91 Temp 36.5 ??C (97.7 ??F) (Transdermal) Resp 18 Wt 133.2 kg (293 lb 9.6 oz) SpO2 97% BMI 55.48 kg/m?? Body mass index is 55.48 kg/m??. PHYSICAL EXAM: Physical Exam LABORATORY DATA: Hematology Lab History Some values may be [...] each date aredisplayed. Labs-Chem/LFT Latest Ref Range 10/02/20 Sodium 135 - 145 mmol/L 138 Creatinine 0.60 - 1.10 mg/dL 0.76 Bilirubin, total 0.1 - 1.2 mg/dL 0.9 AST 10 - 45 Units/L 30 ALT 7 - 45 Units/L 24 CrCl- Actual Body Weight (Cockcroft-Gault) 158 ASSESSMENT/PLAN: 65 yo F with morbid obesity, history of Stage II breast CA on exemestane, hx of PE on tamoxifen in 2017, HTN, depression, hypothyroidism, sleep apnea, RLS, arthritis, and diabetic gastroparesis who presents to the Hematology clinic for further evaluation of leukcytosis. 1. Leukocytosis with predominant neutrophilia. This has been present for several years and given the pattern and predominant neutrophilia, I suspect this is likely reactive. Her repeat CBC today actually showed a normal WBC. We had already sent out BCR-ABL to rule out CML, however, given the normalization of her WBC, I suspect this will likely come back normal. 2. Elevated CRP. We discussed that this is a nonspecific inflammatory marker. She has issues with arthralgias and myalgias and carries a diagnosis of osteoarthritis. We discussed that if there is anyconcern for a possible inflammatory arthritis causing her symptoms, then she may benefit from being evaluated by Rheumatology. Will defer to her PCP regarding Rheumatology referral. Inflammation can certainly be a cause for a reactive leukocytosis. We will contact Ms. Marques regarding the results of her laboratory testing from today. She was given the contact information for our clinic should she have any additional questions or concerns. I will likely see her back on an as needed basis. Heaven Carrillo MD documented in this encounter Plan of Treatment Not on file documented as of this encounter Visit Diagnoses Diagnosis Leukocytosis, unspecified type- Primary documented in this encounter Discontinued Medications Medication Sig Discontinue Reason Start Date End Da te acetaminophen-codeine (TYLENOL with CODEINE #3) 300-30 mg per tablet acetaminophen 300 mg-codeine 30 mg tablet 10/29/2020 albuterol HFA (ProAir HFA) 90 mcg/actuation inhaler ProAir HFA 90 mcg/actuation aerosol inhaler 10/29/2020 ALPRAZolam (XANAX) 0.25 mg tablet alprazolam 0.25 mg tablet 10/29/2020 anastrozole (ARIMIDEX) 1 mg tablet anastrozole 1 mg tablet 10/30/19 atorvastatin (LIPITOR) 10 mg tablet Take 1 tablet (10 mg total) by mouth nightly. 01/26/2018 10/29/2020 azithromycin (ZITHROMAX) 250 mg tablet azithromycin 250 mg tablet 10/29/2020 baclofen (LIORESAL) 10 mg tablet baclofen 10 mg tablet 10/29/2020 bismuth subsalicylate (Pepto-BismoL Max St) 525 mg/15 mL suspension Take 30 mL by mouth every 6 (six) hours as needed 09/21/2020 10/29/2020 ciprofloxacin (CIPRO) 250 mg tablet ciprofloxacin 250 mg tablet 10/29/2020 clindamycin (CLEOCIN) 150 mg capsule clindamycin HCl 150 mg capsule 10/29/2020 clotrimazole-betametha sone (LOTRISONE) cream clotrimazole-betamethas one 1 %-0.05 % topical cream APPLY TOPICALLY TO AFFECTED AND SURROUNDING AREAS BID IN THE MORNING AND EVENING X 2 WEEKS 10/29/2020 cyclobenzaprine (FLEXERIL) 5 mg tablet cyclobenzaprine 5 mg tablet 10/29/2020 dapagliflozin (Farxiga) 5 mg tablet daily 10/29/2020 dexAMETHasone (DECADRON) 4 mg tablet dexamethasone 4 mg tablet TAKE TWO TABLETS PO IN THE MORNING DAY AFTER CHEMO WHICH IS DAY 2 TAKE TWO TABLETS IN MORNING AND TWO TABLETS AT NIGHT ON DAY 3 AND 4 10/29/2020 diazePAM (VALIUM) 5 mg tablet Take 1 tablet (5 mg total) by mouth every 8 (eight) hours as needed for anxiety. 03/17/2018 10/29/[address] (VOLTAREN) 75 mg EC tablet Take 75 mg by mouth 2 (two) times a day as needed 01/17/2019 10/29/2020 dicyclomine (BENTYL) 20 mg tablet dicyclomine 20 mg tablet 10/29/2020 diphenhydrAMINE (diphenhydrAMINE) 25 mg capsule Take 1 tablet/capsule (25 mg total) by mouth every 6 (six) hours as needed for itching . 06/27/2018 10/29/[address] (Cymbalta) 20 mg capsule Cymbalta 20 mg capsule,delayed release 10/29/2020 famotidine (PEPCID) 20 mg tablet Take 20 mg by mouth 2 (two) times a day 02/17/2020 10/29/2020 fluticasone propionate (FLONASE) 50 mcg/actuation nasal spray fluticasone propionate 50 mcg/actuation nasal spray,suspension INHALE 1 SPRAY BY INTRANASAL ROUTE QD FOR 7 DAYS 10/29/2020 gabapentin (NEURONTIN) 300 mg capsule Take 300 mg by mouth 3 times daily 02/27/2018 10/29/2020 glimepiride (AMARYL) 2 mg tablet glimepiride 2 mg tablet 10/30/19 hydrOXYzine (ATARAX) 25 mg tabletIndications:anxi ety Take 1 tablet (25 mg total) by mouth 4 (four) times a day as needed for itching or anxiety (TONGUE SWELLING) Indications: anxious. 06/28/2018 10/29/2020 ibuprofen (ADVIL,MOTRIN) 600 mg tablet ibuprofen 600 mg tablet TK 1 T PO Q 6 H PRN 10/29/2020 ipratropium-albuteroL (Combivent Respimat) 20-100 mcg/actuation inhaler Combivent Respimat 20 mcg-100 mcg/actuation solution for inhalation 10/29/2020 ketorolac (ketorolac) 30 mg/mL (1 mL) injection 1 mL 10/29/2020 lancets (ONETOUCH DELICA LANCETS) 33 gauge misc by Not Applicable route 4 times daily 01/19/2018 10/29/2020 levoFLOXacin (LEVAQUIN) 250 mg tablet levofloxacin 250 mg tablet 10/29/2020 lidocaine (LIDODERM) 5 % PLACE 1 PATCH ONTO THE SKIN D FOR 30 DAYS. REMOVE AND DISCARD PATCH WITHIN 12 HOURS OR UTD BY 12/12/2018 10/29/2020 LORazepam (ATIVAN) 0.5 mg tablet lorazepam 0.5 mg tablet 10/30/19 metFORMIN XR (GLUCOPHAGE XR) 500 mg 24 hr tablet metformin ER 500 mg tablet,extended release 24 hr TK 2 TS PO IN THE MORNING AND IN THE ARMAAN 10/29/2020 methIMAzole (TAPAZOLE) 10 mg tablet methimazole 10 mg tablet TK 1 T PO QD FOR 2 WEEKS AND THEN T PO QD FOR 2 WEEKS 10/29/2020 methylPREDNISolone acetate (DEPO-MedroL) 40 mg/mL injection 1.5 mL 10/29/2020 metoclopramide (REGLAN) 10 mg tablet metoclopramide 10 mg tablet 10/29/2020 metoprolol tartrate (LOPRESSOR) 25 mg immediate release tablet metoprolol tartrate 25 mg tablet TK T PO Q 12 HOURS 10/29/2020 metroNIDAZOLE (FLAGYL) 500 mg tablet metronidazole 500 mg tablet 10/29/2020 mirabegron ER (MYRBETRIQ) 25 mg tablet extended release 24 hr Take 25 mg by mouth 09/07/2020 10/29/2020 morphine (MSIR) 15 mg tablet morphine 15 mg immediate release tablet 10/29/2020 mupirocin (BACTROBAN) 2 % ointment mupirocin 2 % topical ointment 10/29/2020 naproxen (NAPROSYN) 500 mg tablet naproxen 500 mg tablet TK 1 T PO Q 12 H PRN 10/29/2020 nitrofurantoin (MACRODANTIN) 100 mg capsule nitrofurantoin macrocrystal 100 mg capsule TK 1 C PO Q 6 H WITH MEALS FOR 7 DAYS 10/29/2020 nitrofurantoin monohydrate (MACROBID) 100 mg capsule Take 1 capsule (100 mg total) by mouth 2 (two) times a day. 02/24/2018 10/29/2020 omeprazole (PriLOSEC) 40 mg capsule Take 40 mg by mouth daily 09/07/2018 10/29/2020 ondansetron (ZOFRAN) 4 mg tablet Take 1 tablet (4 mg total) by mouth every 6 (six) hours as needed for nausea or vomiting 10/04/2018 10/29/2020 ondansetron ODT (ZOFRAN-ODT) 4 mg disintegrating tablet Dissolve 1 tablet oral every 4 hours as needed for nausea or vomiting. 10/02/2020 10/29/2020 ONETOUCH ULTRA BLUE TEST STRIP strip TEST QID 12/04/2018 10/29/2020 oxyCODONE-acetaminophe n (PERCOCET) 5-325 mg per tabletIndications:Pain Take 1 tablet by mouth every 6 (six) hours as needed for pain. 03/17/2018 10/29/[address] (PROTONIX) 40 mg EC tablet pantoprazole 40 mg tablet,delayed release 10/29/2020 phenazopyridine (PYRIDIUM) 200 mg tablet phenazopyridine 200 mg tablet TK 1 T PO TID PC FOR 2 DAYS 10/29/2020 polyethylene glycol (MIRALAX) 17 gram/dose powder Mix 1 scoop (17 g) in 8 oz of water and drink daily. 08/15/2017 10/29/2020 predniSONE (DELTASONE) 20 mg tablet prednisone 20 mg tablet TK 1 T PO QD FOR 5 DAYS 10/29/2020 prochlorperazine (COMPAZINE) 10 mg tablet prochlorperazine maleate 10 mg tablet 10/29/2020 promethazine (PHENERGAN) 25 mg tablet promethazine 25 mg tablet TK 1 T PO Q 6 H PRN 10/29/2020 selenium sulfide 2.5 % lotion selenium sulfide 2.5 % shampoo APPLY TO THE AFFECTED AREAS BY TOPICAL ROUTE TWICE WEEKLY LATHER LEAVE ON 10 MINUTES AND RINSE OFF 10/29/2020 sitaGLIPtin-metformin (JANUMET) 50-1,000 mg per tablet Take 1 tablet by mouth 1 sulfamethoxazole-trime thoprim (BACTRIM DS) 800-160 mg per tablet sulfamethoxazole 800 mg-trimethoprim 160 mg tablet 10/29/2020 tamoxifen (NOLVADEX) 20 mg tablet tamoxifen 20 mg tablet 1 tamsulosin (FLOMAX) 0.4 mg extended release capsule tamsulosin 0.4 mg capsule TK 1 C PO QAM 10/29/2020 TiZANidine (ZANAFLEX) 2 mg capsule Take 1 tablet by mouth 07/10/2020 traMADoL (ULTRAM) 50 mg tablet tramadol 50 mg tablet 10/29/2020 TRUEPLUS PEN NEEDLE 31 gauge x 5/16 needle 05/28/2018 10/29/2020 documented as of this encounter Historical Medications * This list may reflect changes made after this encounter. traMADoL (ULTRAM) 50 mg tablet tramadol 50 mg tablet 10/30/19 21 TiZANidine (ZANAFLEX) 2 mg capsule Take 1 tablet by mouth 1 10/30/19 21 tamsulosin (FLOMAX) 0.4 mg extended release capsule tamsulosin 0.4 mg capsule TK 1 C PO QAM 10/30/19 21 tamoxifen (NOLVADEX) 20 mg tablet tamoxifen 20 mg tablet 10/30/19 21 sulfamethoxazole-t rimethoprim (BACTRIM DS) 800-160 mg per tablet sulfamethoxazole 800 mg-trimethoprim 160 mg tablet 10/30/19 21 selenium sulfide 2.5 % lotion selenium sulfide 2.5 % shampoo APPLY TO THE AFFECTED AREAS BY TOPICAL ROUTE TWICE WEEKLY LATHER LEAVE ON 10 MINUTES AND RINSE OFF 10/30/19 21 promethazine (PHENERGAN) 25 mg tablet promethazine 25 mg tablet TK 1 T PO Q 6 H PRN 10/30/19 21 prochlorperazine (COMPAZINE) 10 mg tablet prochlorperazine maleate 10 mg tablet 0 21 predniSONE (DELTASONE) 20 mg tablet prednisone 20 mg tablet TK 1 T PO QD FOR 5 DAYS 10/30/19 21 phenazopyridine (PYRIDIUM) 200 mg tablet phenazopyridine 200 mg tablet TK 1 T PO TID PC FOR 2 DAYS 10/30/[address] (PROTONIX) 40 mg EC tablet pantoprazole 40 mg tablet,delayed release 10/30/19 21 nitrofurantoin (MACRODANTIN) 100 mg capsule nitrofurantoin macrocrystal 100 mg capsule TK 1 C PO Q 6 H WITH MEALS FOR 7 DAYS 10/30/19 21 naproxen (NAPROSYN) 500 mg tablet naproxen 500 mg tablet TK 1 T PO Q 12 H PRN 0 21 mupirocin (BACTROBAN) 2 % ointment mupirocin 2 % topical ointment 10/30/19 21 morphine (MSIR) 15 mg tablet morphine 15 mg immediate release tablet 10/30/19 21 mirabegron ER (MYRBETRIQ) 25 mg tablet extended release 24 hr Take 25 mg by mouth 02 1 10/30/19 21 metroNIDAZOLE (FLAGYL) 500 mg tablet metronidazole 500 mg tablet 10/30/19 21 metoprolol tartrate (LOPRESSOR) 25 mg immediate release tablet metoprolol tartrate 25 mg tablet TK T PO Q 12 HOURS 10/30/19 21 metoclopramide (REGLAN) 10 mg tablet metoclopramide 10 mg tablet 10/30/19 21 methylPREDNISolone acetate (DEPO-MedroL) 40 mg/mL injection 1.5 mL 10/30/19 21 methIMAzole (TAPAZOLE) 10 mg tablet methimazole 10 mg tablet TK 1 T PO QD FOR 2 WEEKS AND THEN T PO QD FOR 2 WEEKS 10/30/19 21 metFORMIN XR (GLUCOPHAGE XR) 500 mg 24 hr tablet metformin ER 500 mg tablet,extended release 24 hr TK 2 TS PO IN THE MORNING AND IN THE ARMAAN 10/30/19 21 LORazepam (ATIVAN) 0.5 mg tablet lorazepam 0.5 mg tablet 10/30/19 21 levoFLOXacin (LEVAQUIN) 250 mg tablet levofloxacin 250 mg tablet 10/30/19 21 ketorolac (ketorolac) 30 mg/mL (1 mL) injection 1 mL 10/30/19 21 ipratropium-albute roL (Combivent Respimat) 20-100 mcg/actuation inhaler Combivent Respimat 20 mcg-100 mcg/actuation solution for inhalation 10/30/19 21 ibuprofen (ADVIL,MOTRIN) 600 mg tablet ibuprofen 600 mg tablet TK 1 T PO Q 6 H PRN 10/30/19 21 glimepiride (AMARYL) 2 mg tablet glimepiride 2 mg tablet 10/30/19 21 fluticasone propionate (FLONASE) 50 mcg/actuation nasal spray fluticasone propionate 50 mcg/actuation nasal spray,suspension INHALE 1 SPRAY BY INTRANASAL ROUTE QD FOR 7 DAYS 10/30/19 21 famotidine (PEPCID) 20 mg tablet Take 20 mg by mouth 2 (two) times a day 0 10/30/[address] (Cymbalta) 20 mg capsule Cymbalta 20 mg capsule,delayed release 10/30/19 21 dicyclomine (BENTYL) 20 mg tablet dicyclomine 20 mg tablet 10/30/19 21 dexAMETHasone (DECADRON) 4 mg tablet dexamethasone 4 mg tablet TAKE TWO TABLETS PO IN THE MORNING DAY AFTER CHEMO WHICH IS DAY 2 TAKE TWO TABLETS IN MORNING AND TWO TABLETS AT NIGHT ON DAY 3 AND 4 0 21 dapagliflozin (Farxiga) 5 mg tablet daily 10/30/19 21 cyclobenzaprine (FLEXERIL) 5 mg tablet cyclobenzaprine 5 mg tablet 10/30/19 21 clotrimazole-betam ethasone (LOTRISONE) cream clotrimazole-betamet hasone 1 %-0.05 % topical cream APPLY TOPICALLY TO AFFECTED AND SURROUNDING AREAS BID IN THE MORNING AND EVENING X 2 WEEKS 10/30/19 21 clindamycin (CLEOCIN) 150 mg capsule clindamycin HCl 150 mg capsule 10/30/19 21 ciprofloxacin (CIPRO) 250 mg tablet ciprofloxacin 250 mg tablet 10/30/19 21 bismuth subsalicylate (Pepto-BismoL Max St) 525 mg/15 mL suspension Take 30 mL by mouth every 6 (six) hours as needed 10/30/19 21 baclofen (LIORESAL) 10 mg tablet baclofen 10 mg tablet 10/30/19 21 azithromycin (ZITHROMAX) 250 mg tablet azithromycin 250 mg tablet 10/30/19 21 anastrozole (ARIMIDEX) 1 mg tablet anastrozole 1 mg tablet 10/30/19 21 ALPRAZolam (XANAX) 0.25 mg tablet alprazolam 0.25 mg tablet 10/30/19 21 albuterol HFA (ProAir HFA) 90 mcg/actuation inhaler ProAir HFA 90 mcg/actuation aerosol inhaler 10/30/19 21 acetaminophen-code ine (TYLENOL with CODEINE #3) 300-30 mg per tablet acetaminophen 300 mg-codeine 30 mg tablet 10/30/19 21 added in this encounter Care Teams Pageant Director Relationship Specialty Start Date End Date Justen Gale MD [address] [address] PCP - General 10/09/17 Liu Jerez MD Consulting Physician Gastroenterology 07/28/17 [place] [address] [facility] [address] [place] [address] Consulting Physician Pulmonary Disease 08/03/17 Khris Arthur MD [address] [facility] [address] [place] [address] Medical Oncologist/Electric Switch Repairer Medical Oncology 10/23/17 [place] [address] [facility] [address] [place] [address] Surgeon Orthopedic Surgery 10/23/17 [place] [address] [facility] [address] [place] [address] Consulting Physician Pain Management 10/23/17 [place] [address] [facility] [address] [place] [address] Referring Physician General Surgery 01/26/18 [place] [address] [facility] [address] [place] [address] Consulting Physician Neurology 01/26/18 documented as of this encounter
--- OUTSIDE RECORDS SUMMARY | 2024-04-26 04:23 | XMS_ITS | Encounter Summary ---
Author Organization [facility] Address [address] [place] [address] Phone Care Team Providers Care Dielectric Tester Name Role Phone Liu Jerez MD Unavailable [phone] Albert Corbin MD Unavailable [phone] Justen Gale MD Primary Care Provider Khris Arthur MD Unavailable [phone] Ko Melendez MD Unavailable [phone] John Paul Moyer MD Unavailable [phone] Annel Rod MD Unavailable Anali MARSHALL MD, Carlos M. 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 Bear could also see her for her Hematology/Oncology issues? Her PCP is referring her to one due to some lab results that were abnormal. I explained to her, she would have to see Hem/Onc and she verbalized understanding. Jo RN 1516 documented in this encounter Plan of Treatment Not on file documented as of this encounter Visit Diagnoses Not on filedocumented in this encounter Care Teams Dielectric Tester Relationship Specialty Start Date End Date Justen Gale MD [address] [address] PCP - General 10/09/17 Liu Jerez MD Consulting Physician Gastroenterology 07/28/17 [place] [address] [facility] [address] [place] [address] Consulting Physician Pulmonary Disease 08/03/17 Khris Arhtur MD [address] [facility] [address] [place] [address] Medical Oncologist/Staff Counsel Medical Oncology 10/23/17 [place] [address] [facility] [address] [place] [address] Surgeon Orthopedic Surgery 10/23/17 [place] [address] [address] Consulting Physician Pain Management 10/23/17 [place] [address] [address] Referring Physician General Surgery 01/26/18 [place] [address] [facility] [address] [place] [address] Consulting Physician Neurology 01/26/18 documented as of this encounter
--- OUTSIDE RECORDS SUMMARY | 2024-04-26 04:23 | XMS_ITS | Encounter Summary ---
Author Organization [facility] Address [address] [place] [address] Phone Care Team Providers Care Stained Glass Artist Name Role Phone Liu Jerez MD Unavailable Albert Corbin MD Unavailable Justen Gale MD Primary Care Provider [phone] Khris Arthur MD Unavailable [phone] Ko Melendez MD Unavailable John Paul Moyer MD Unavailable Annel Rod MD Unavailable Anali MARSHALL MD, Carlos M. Unavailable [phone] Reason for Visit * Reason Onset Date Comments Follow-up 10/13/2020 Encounter Details Date Type Department Care Team (Late st Contact Info) Description 10/13/2020 Telephone [facility] Oncology [address] [facility] 7th [place] [address] [place] [address] Jeanine Ba, [facility] Follow-up Social History Tobacco Use Types Packs/Day Years Used Date Smoking Tobacco: Former Smokeless Tobacco: Never Comments:remote tobacco use Alcohol Use Standard Drinks/Week Comments No 0 (1 standard drink = 0.6 oz pur e alcohol) PHQ-2 Answer Date Recorded PHQ-2 Score 1 12/15/2018 Comments No Sex and Gender Information Value Date Recorded Sex Assigned at Not on file 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 Called pt to f/u on her wanting to be seen sooner due to new sensations. No answer, left message for her to call office. Please see message below: documented in this encounter Plan of Treatment Not on file documented as of this encounter Visit Diagnoses Not on filedocumented in this encounter Care Teams Stained Glass Artist Relationship Specialty Start Date End Date Justen Gale MD [address] [address] PCP - General 10/09/17 Liu Jerez MD Consulting Physician Gastroenterology 07/28/17 [place] [address] [facility] [address] [place] [address] Consulting Physician Pulmonary Disease 08/03/17 Khris Arthur MD [address] [facility] [address] [place] [address] Medical Oncologist/Informatics Physician Medical Oncology 10/23/17 [place] [address] [facility] [address] [place] [address] Surgeon Orthopedic Surgery 10/23/17 [place] [address] [address] Consulting Physician Pain Management 10/23/17 [place] [address] [facility] [address] [place] [address] Referring Physician General Surgery 01/26/18 [place] [address] [facility] [address] [place] [address] Consulting Physician Neurology 01/26/18 documented as of this encounter
--- OUTSIDE RECORDS SUMMARY | 2024-04-26 04:23 | XMS_ITS | Encounter Summary ---
Author Organization [facility] Address [address] [place] [address] Phone Care Team Providers Care Crankshaft Straightener Name Role Phone Liu Jerez MD Unavailable Albert Corbin MD Unavailable Justen Gale MD Primary Care Provider Khris Arthur MD Unavailable [phone] Ko Melendez MD Unavailable [phone] John Paul Moyer MD Unavailable Annel Rod MD Unavailable Anali MARSHALL MD, Carlos M. Unavailable Reason for Visit * Reason Onset Date Comments Reschedule Missed Appointments 07/02/2020 Encounter Details Date Type Department Care Team (Late st Contact Info) Description 07/02/2020 Telephone [facility] Oncology [address] [facility] 7th [place] [address] [place] [address] Jeanine Ba Cordelia Reschedule Missed Appointments Social History Tobacco Use Types Packs/Day Years Used Date Smoking Tobacco: Former Smokeless Tobacco: Never Comments:remote tobacco use Alcohol Use Standard Drinks/Week Comments No 0 (1 standard drink = 0.6 oz pur e alcohol) PHQ-2 Answer Date Recorded PHQ-2 Score 1 12/15/2018 Comments No Sex and Gender Information Value Date Recorded Sex Assigned at Not on file 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 No answer and not able to leave a message. Also called pt's , no answer not able to leave a message. Will send letter. OYMENT PROGRAMS ANALYST documented in this encounter Plan of Treatment Not on file documented as of this encounter Visit Diagnoses Not on filedocumented in this encounter Care Teams Crankshaft Straightener Relationship Specialty Start Date End Date Justen Gale MD [address] [address] PCP - General 10/09/17 Liu Jerez MD Consulting Physician Gastroenterology 07/28/17 [place] [address] [facility] [address] [place] [address] Consulting Physician Pulmonary Disease 08/03/17 Khris Arthur MD [address] [facility] [address] [place] [address] Medical Oncologist/[facility] Oncology 7/2/18 [place] [address] [facility] [address] [place] [address] Surgeon Orthopedic Surgery 10/23/17 [place] [address] [address] Consulting Physician Pain Management 10/23/17 [place] [address] [facility] [address] [place] [address] Referring Physician General Surgery 01/26/18 [place] [address] [facility] [address] [place] [address] Consulting Physician Neurology 01/26/18 documented as of this encounter
--- OUTSIDE RECORDS SUMMARY | 2024-04-26 04:23 | XMS_ITS | Encounter Summary ---
Author Organization [facility] Address [address] [place] [address] Care Team Providers Care Refrigeration Lead Name Role Phone Liu Jerez MD Unavailable Albert Corbin MD Unavailable [phone] Justen Gale MD Primary Care Provider Khris Arthur MD Unavailable [phone] Ko Melendez MD Unavailable [phone] John Paul Moyer MD Unavailable Annel Rod MD Unavailable Anali MARSHALL MD, Carlos M. 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 I informed her that her PCP will have to call [facility] to start referral. Patient understood. I gave her our dept. # to fwd to PCP Dx WBC elevated CRP Elevated documented in this encounter Plan of Treatment Not on file documented as of this encounter Visit Diagnoses Not on filedocumented in this encounter Care Teams Refrigeration Lead Relationship Specialty Start Date End Date Justen Gale MD 2 [facility] [address] [place] [address] PCP - General 10/09/17 Liu Jerez MD Consulting Physician Gastroenterology 07/28/17 [place] [address] [facility] [address] [place] [address] Consulting Physician Pulmonary Disease 08/03/17 Khris Arthur MD [address] [facility] [address] [place] [address] Medical Oncologist/Professor Of Special Education Medical Oncology 10/23/17 [place] [address] [facility] [address] [place] [address] Surgeon Orthopedic Surgery 10/23/17 [place] [address] [address] Consulting Physician Pain Management 10/23/17 [place] [address] [address] Referring Physician General Surgery 01/26/18 [place] [address] [facility] [address] [place] [address] Consulting Physician Neurology 01/26/18 documented as of this encounter
--- OUTSIDE RECORDS SUMMARY | 2024-04-26 04:23 | XMS_ITS | Encounter Summary ---
Author Organization [facility] Address [address] [place] [address] Phone Care Team Providers Care Steward/Stewardess Room Name Role Phone Liu Jerez MD Unavailable Albert Corbin MD Unavailable Justen Gale MD Primary Care Provider Khris Arthur MD Unavailable [phone] Ko Melendez MD Unavailable John Paul Moyer MD Unavailable Annel Rod MD Unavailable Anali MARSHALL MD, Carlos M. Unavailable [phone] Reason for Visit * Reason Onset Date Comments Reschedule Appointment 06/16/2020 Encounter Details Date Type Department Care Team (Late st Contact Info) Description 06/16/2020 Telephone [facility] Oncology [address] [facility] 7th [place] [address] [place] [address] Jeanine Ba, [facility] Reschedule Appointment Social History Tobacco Use Types Packs/Day Years Used Date Smoking Tobacco: Former Smokeless Tobacco: Never Comments:remote tobacco use Alcohol Use Standard Drinks/Week Comments No 0 (1 standard drink = 0.6 oz pur e alcohol) PHQ-2 Answer Date Recorded PHQ-2 Score 1 12/15/2018 Comments No Sex and Gender Information Value Date Recorded Sex Assigned at Not on file 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 No answer and not able to leave message. Will mail itinerary. E CUTTING SUPERVISOR documented in this encounter Plan of Treatment Not on file documented as of this encounter Visit Diagnoses Not on filedocumented in this encounter Care Teams Steward/Stewardess Room Relationship Specialty Start Date End Date Justen Gale MD [address] [address] PCP - General 10/09/17 Liu Jerez MD Consulting Physician Gastroenterology 07/28/17 [place] [address] [facility] [address] [place] [address] Consulting Physician Pulmonary Disease 08/03/17 Khris Arthur MD [address] [facility] [address] [place] [address] Medical Oncologist/Seismographer Medical Oncology 10/23/17 [place] [address] [facility] [address] [place] [address] Surgeon Orthopedic Surgery 10/23/17 [place] [address] [facility] [address] [place] [address] Consulting Physician Pain Management 10/23/17 [place] [address] [facility] [address] [place] [address] Referring Physician General Surgery 01/26/18 [place] [address] [facility] [address] [place] [address] Consulting Physician Neurology 01/26/18 documented as of this encounter
--- OUTSIDE RECORDS SUMMARY | 2024-04-26 04:23 | XMS_ITS | Encounter Summary ---
Author Organization [facility] Healthcare Address [address] [place] [address] Care Team Providers Care Electrical Integrator Name Role Phone Liu Jerez MD Unavailable Albert Corbin MD Unavailable [phone] Justen Gale MD Primary Care Provider Khris Arthur MD Unavailable [phone] Ko Melendez MD Unavailable [phone] John Paul Moyer MD Unavailable [phone] Annel Rod MD Unavailable Anali MARSHALL MD, Carlos M. 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 Gender Identity Not on file Sexual Orientation Not on file documented as of this encounter Last Filed Vital Signs Vital Sign Reading Time Taken Comments Blood Pressure 145/71 10/02/2020 12:38 PM CDT Pulse 77 10/02/2020 6:00 PM CDT Temperature 36.7 ??C (98.1 ??F) 10/02/2020 12:38 PM C DT Respiratory Rate 22 10/02/2020 12:38 PM CDT Oxygen Saturation 99% 10/02/2020 6:00 PM CDT Inhaled Oxygen Concentration - - Weight 133.8 kg (295 lb) 10/02/2020 12:38 PM CDT Height 154.9 cm (5' 1 ) 10/02/2020 12:38 PM CDT Body Mass Index 55.74 10/02/2020 12:38 PM CDT documented in this encounter Discharge Diagnoses Diagnosis Other chronic pain - OTHER CHRONIC PAIN Generalized abdominal pain - GENERALIZED ABDOMINAL PAIN Abdominal pain, generalized Nausea with vomiting, unspecified - NAUSEA WITH VOMITING, UNSPECIFIED Hypertensive heart disease with heart failure (CMS/HCC) ([facility]) - HYPERTENSIVE HEART DISEASE WITH HEART FAILURE Unspecified hypertensive heart disease with heart failure Heart failure, unspecified (CMS/HCC) ([facility]) - HEART FAILURE, UNSPECIFIED Heart failure, unspecified Type 2 diabetes mellitus with diabetic autonomic (poly)neuropathy (HCC) - TYPE 2 DIABETES MELLITUS WITH DIABETIC AUTONOMIC (POLY)NEUROPATHY Gastroparesis - GASTROPARESIS Disorder of thyroid, unspecified - DISORDER OF THYROID, UNSPECIFIED Hyperlipidemia, unspecified - HYPERLIPIDEMIA, UNSPECIFIED Restless legs syndrome - RESTLESS LEGS SYNDROME Restless legs syndrome (RLS) Sleep apnea, unspecified - SLEEP APNEA, UNSPECIFIED Unspecified osteoarthritis, unspecified site - UNSPECIFIED OSTEOARTHRITIS, UNSPECIFIED SITE Obesity, unspecified - OBESITY, UNSPECIFIED nursing home (current) use of anticoagulants - SNF (CURRENT) USE OF ANTICOAGULANTS Long-term (current) use of anticoagulants 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 (HCC) - SNF (CURRENT) USE OF INSULIN Presence of right artificial knee joint - PRESENCE OF RIGHT ARTIFICIAL KNEE JOINT Personal history of malignant neoplasm of breast - PERSONAL HISTORY OF MALIGNANT NEOPLASM OF BREAST Personal history of pulmonary embolism - PERSONAL HISTORY OF PULMONARY EMBOLISM Personal history of other venous thrombosis and embolism - PERSONAL HISTORY OF OTHER VENOUS THROMBOSIS AND EMBOLISM Personal history of nicotine dependence - PERSONAL HISTORY OF NICOTINE DEPENDENCE documented in this encounter Discharge Instructions * Discharge Instructions* Sherry Diehl MD - 10/02/2020 6:17 PM CDT You have been seen and evaluated by [facility] ED. Your laboratory values were normal. We have attached a referral to the [facility] GI specialists here. They will call you within a few days to set up an appointment. We will give you some oral medications for the nausea. documented in this encounter Medications at Time of Discharge rOPINIRole (REQUIP) 5 mg tablet Take 1 tablet (5 mg total) by mouth nightly Taken at 2100 amitriptyline (ELAVIL) 25 mg tablet Take 25 mg by mouth nightly 05/21/2018 08/18/19 24 atorvastatin (LIPITOR) 10 mg tablet Take 1 tablet (10 mg total) by mouth nightly. 30 tablet 01/26/2018 10/30/19 21 bismuth subsalicylate (Pepto-BismoL Max St) 525 mg/15 mL suspension Take 30 mL by mouth every 6 (six) hours as needed 09/21/2020 10/30/19 21 clonazePAM (KlonoPIN) 1 mg tablet Take 1 tablet (1 mg total) by mouth 2 (two) times a day for 10 days . 20 tablet 06/27/2018 09/13/19 22 diazePAM (VALIUM) 5 mg tablet Take 1 tablet (5 mg total) by mouth every 8 (eight) hours as needed for anxiety. 10 tablet 03/17/2018 10/30/[address] (VOLTAREN) 75 mg EC tablet Take 75 mg by mouth 2 (two) times a day as needed 01/17/2019 10/30/19 21 diphenhydrAMINE (diphenhydrAMINE) 25 mg capsule Take 1 tablet/capsule (25 mg total) by mouth every 6 (six) hours as needed for itching . 20 capsule 06/27/2018 10/30/19 21 exemestane (AROMASIN) 25 mg tabletIndications: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, unspecified estrogen receptor status (HCC),Malignant neoplasm of overlapping sites of left female breast, unspecified estrogen receptor status (HCC),Malignant neoplasm of female breast, unspecified estrogen receptor status, unspecified laterality, unspecified site of breast (HCC) Take 1 tablet (25 mg total) by mouth daily After a meal 90 tablet 08/06/2020 11/06/19 21 famotidine (PEPCID) 20 mg tablet Take 20 mg by mouth 2 (two) times a day 02/17/2020 10/30/19 21 gabapentin (NEURONTIN) 300 mg capsule Take 300 mg by mouth 3 times daily 02/27/2018 10/30/19 21 HYDROcodone-acetamin ophen (NORCO) 5-325 mg per tabletIndications:Pa in Take by mouth. 01/01/2018 09/13/19 22 hydrOXYzine (ATARAX) 25 mg tabletIndications:an xiety Take 1 tablet (25 mg total) by mouth 4 (four) times a day as needed for itching or anxiety (TONGUE SWELLING) Indications: anxious. 20 tablet 06/28/2018 10/30/19 21 insulin glargine (LANTUS) 100 unit/mL injection Inject 40 Units under the skin daily. Takes in the morning 01/26/2018 08/18/19 24 insulin lispro (HumaLOG) 100 unit/mL injection Inject 12 Units under the skin 3 (three) times a day before meals. 01/26/2018 12/28/19 24 lancets (ONETOUCH DELICA LANCETS) 33 gauge misc by Not Applicable route 4 times daily 01/19/2018 10/30/19 21 lidocaine (LIDODERM) 5 % PLACE 1 PATCH ONTO THE SKIN D FOR 30 DAYS. REMOVE AND DISCARD PATCH WITHIN 12 HOURS OR UTD BY MD 0 12/12/2018 10/30/19 21 lisinopril (PRINIVIL,ZESTRIL) 20 mg tablet Take 20 mg by mouth. 05/11/2012 09/13/19 22 mirabegron ER (MYRBETRIQ) 25 mg tablet extended release 24 hr Take 25 mg by mouth 09/07/2020 10/30/19 21 mirabegron ER (MYRBETRIQ) 25 mg tablet extended release 24 hr Take 25 mg by mouth daily 09/04/2020 09/13/19 22 nitrofurantoin monohydrate (MACROBID) 100 mg capsule Take 1 capsule (100 mg total) by mouth 2 (two) times a day. 10 capsule 02/24/2018 10/30/19 21 omeprazole (PriLOSEC) 40 mg capsule Take 40 mg by mouth daily 09/07/2018 10/30/19 21 ondansetron (ZOFRAN) 4 mg tablet Take 1 tablet (4 mg total) by mouth every 6 (six) hours as needed for nausea or vomiting 30 tablet 10/04/2018 10/30/19 21 ondansetron ODT (ZOFRAN-ODT) 4 mg disintegrating tablet Dissolve 1 tablet oral every 4 hours as needed for nausea or vomiting. 10 tablet 10/02/2020 10/30/19 21 ONETOUCH ULTRA BLUE TEST STRIP strip TEST QID 3 12/04/2018 10/30/19 21 oxybutynin (DITROPAN) 5 mg tablet take 1 tablet by oral route every day 0 0 12/12/2013 01/27/20 23 oxyCODONE-acetaminop hen (PERCOCET) 5-325 mg per tabletIndications:Pa in Take 1 tablet by mouth every 6 (six) hours as needed for pain. 6 tablet 03/17/2018 10/30/19 21 polyethylene glycol (MIRALAX) 17 gram/dose powder Mix 1 scoop (17 g) in 8 oz of water and drink daily. 527 g 08/15/2017 10/30/19 21 rivaroxaban (Xarelto) 20 mg tabletIndications:Ot her pulmonary [...] total) by mouth daily 30 tablet 11 08/02/2019 10/29/19 21 rivaroxaban (Xarelto) 20 mg tabletIndications:Ot her pulmonary embolism without acute cor pulmonale, unspecified chronicity (HCC),Malignant neoplasm of upper-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, unspecified estrogen receptor status (HCC),Malignant neoplasm of overlapping sites of left female breast, unspecified estrogen receptor status (HCC),Malignant neoplasm of female breast, unspecified estrogen receptor status, unspecified laterality, unspecified site of breast (HCC) Take 1 tablet (20 mg total) by mouth daily 30 tablet 08/11/2020 10/29/19 21 sitaGLIPtin-metformi n (JANUMET) 50-1,000 mg per tablet Take 1 tablet by mouth 10/30/19 21 TiZANidine (ZANAFLEX) 2 mg capsule Take 1 tablet by mouth 07/10/2020 10/30/19 21 TRUEPLUS PEN NEEDLE 31 gauge x 5/16 needle 05/28/2018 10/30/19 21 documented as of this encounter Ordered Prescriptions Prescription Sig Dispense Quantity Refills Last Filled Start Date End Date ondansetron ODT (ZOFRAN-ODT) 4 mg disintegrating tablet Dissolve 1 tablet oral every 4 hours as needed for nausea or vomiting. 10 tablet 10/02/2020 documented in this encounter Discharge Disposition Disposition Code Departure Means Destination Discharge to home or self care documented in this encounter ED Notes * Sherry Diehl MD - 10/02/2020 3:40 PM CDT HPI Chief Complaint Patient presents with ??? Nausea HPI Karly Marques is a 65 y.o. female with PMH breast ca s/p resection radiation, DVT/PE on xarelto, HTN, HLD, T2DM, diabetic gastroparesis p/w acute on chronic nausea and generalized abdominal pain.Per chart review, patient has presented to ED multiple times for similar complaints. Prior colonoscopy and EGD done in 2018 were unremarkable. Recent OSH CT AP 09/21 unable to be read, but patient states she was told it was normal and she had an elevated CRP. Seen three days prior at OSH ED where she was presumed to have diabetic gastroparesis v IBS Patient states she has been sick for weeks and describes severe chronic abdominal distension. Last night she was extremely nauseous. She describes stomach discomfort and shakiness that worsens after she eats. Today pain is RUQ but will oftentimes migrate. She states she feels sick prior to having BM and some relief after defecation. States that her primary doctor has been trying to set her up with specialist but has not been able to get an appointment yet. Also endorses chills, SOB, shakiness, decreased PO intolerance, constipation. Patient History: Patient Active Problem List Diagnosis Date Noted ??? 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 Thyroid nodule 08/07/2018 ??? Dyslipidemia ??? History of breast cancer ??? Other chronic pain ??? CVA (cerebral vascular accident) ([facility]) 01/24/2018 ??? Anxiety and depression 11/12/2017 ??? Uncontrolled type 2 diabetes mellitus with hyperglycemia, with long-term current use of insulin([facility]) 11/06/2017 ??? Allergy to drug 11/06/2017 ??? Dysuria 10/26/2017 ??? Acute left-sided low back pain with left-sided sciatica 10/23/2017 ??? Type 2 diabetes mellitus with neurologic complication, without long-term current use of insulin([facility]) 10/23/2017 ??? Essential hypertension 10/23/2017 ??? Long-term current use of opiate analgesic 10/23/2017 ??? Lumbosacral spondylosis without myelopathy 10/23/2017 ??? Radiculopathy, lumbosacral region 10/23/2017 ??? Spinal stenosis of lumbar region without neurogenic claudication 10/23/2017 ??? 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 ??? Type 2 diabetes mellitus with hyperglycemia, without long-term current use of insulin (CMS/HCC) ??? Constipation ??? 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 Cancer of overlapping sites of left female breast (CMS/HCC) 10/13/2017 ??? Chronic anticoagulation ??? Restless leg syndrome ??? Chest pressure 08/01/2017 ??? Positive blood culture 08/01/2017 ??? Hyponatremia 08/01/2017 ??? Diet-controlled diabetes mellitus (CMS/HCC) 08/01/2017 ??? LUL (obstructive sleep apnea) 08/01/2017 ??? History of DVT (deep vein thrombosis) 08/01/2017 ??? History of pulmonary embolism 08/01/2017 ??? Essential hypertension ??? Generalized weakness 07/27/2017 ??? Dyspnea 07/27/2017 ??? Unintentional weight loss 07/27/2017 ??? Acute cystitis without hematuria 07/27/2017 ??? Nausea and vomiting 07/26/2017 ??? Pulmonary embolism (CMS/HCC) 08/09/2016 ??? Lymphedema of left upper extremity [...] Alcohol use: No ??? Drug use: No Social History Social History Narrative ??? Not on file Review of Systems Review of Systems Constitutional: Negative. HENT: Negative. Respiratory: Positive for shortness of breath. Cardiovascular: Negative. Gastrointestinal: Positive for abdominal distention, abdominal pain, constipation and nausea. Negative for blood in stool. Genitourinary: Negative. Negative for pelvic pain. Musculoskeletal: Negative. Skin: Negative. Neurological: Shakiness Breast: Negative. Physical Exam ED Triage Vitals [10/02/20 1238] Temp Pulse Resp BP SpO2 36.7 ??C (98.1 ??F) 98 22 145/71 99 % Temp src Heart Rate Source Patient Position BP Location FiO2 (%) Temporal -- -- -- -- Physical Exam Vitals and nursing note reviewed. Constitutional: General: She is in acute distress. Appearance: She is well-developed. She is obese. HENT: Head: Normocephalic and atraumatic. Eyes: Conjunctiva/sclera: Conjunctivae normal. Cardiovascular: Rate and Rhythm: Normal rate and regular rhythm. Heart sounds: Normal heart sounds. No murmur heard. Pulmonary: Effort: Pulmonary effort is normal. No respiratory distress. Breath sounds: Normal breath sounds. Abdominal: General: Bowel sounds are normal. There is distension. Palpations: Abdomen is soft. Tenderness: There is abdominal tenderness. There is no guarding or rebound. Musculoskeletal: Cervical back: Normal range of motion and neck supple. Skin: General: Skin is warm and dry. Neurological: Mental Status: She is alert and oriented to person, place, and time. Psychiatric: Comments: Anxious appearing MDM Medical Decision Making Differential Diagnosis or Management Options: 65 yo F with Hx T2DM and diabetic gastroparesis p/w acute on chronic abdominal pain, Nausea and decreased PO intolerance consistent with prior presentations to the ED. Extensive workup with last CT A/P 09/21 unremarkable. Ddx IBS, diabetic gastroparesis,less likely IBD v colitis Attending Summary of Care ED Course as of Oct 02 2256 Time: 10/02 1812 Value: WBC(!): 11.1 Comment: (Reviewed) By: Jack Bingham MD Chronic abdominal pain Nausea and vomiting, intractability of vomiting not specified, unspecified vomiting type Sherry Diehl MD Resident 10/02/20 2287 Sherry Diehl MD Resident 10/02/202256 Cosigned by Jack Bingham MD at 10/03/2020 12:32 PM CDT Associated attestation - Jack Bingham MD - 10/03/2020 12:32 PM CDT I have seen and examined the patient on 10/02/2020. I agree with the findings and plan of care as documented in the resident's note. * Kasie Garcia RN - 10/02/2020 2:20 PM CDT Bed: [id number] Expected date: Expected time: Means of arrival: Car Comments: Kasie Garcia RN 10/02/20 1420 * Kasie Garcia RN - 10/02/2020 12:41 PM CDT Patient reports worsening nausea over the past 6 weeks or so, but last night got so bad it kept waking her from sleep. Denies dizziness or vomiting, endorses abdominal pain as well. States she's seenher PMD who wants to get her in to a specialist but hasn't been able to yet. documented in this encounter Plan of Treatment Not on file documented as of this encounter Procedures Procedure Name Priority Date/Time Associated Diagnosis Comments POCT GLUCOSE DEVICE Routine 10/02/2020 4 :45 PM CDT DIFFERENTIAL AUTO STAT 10/02/2020 4:0 8 PM CDT CBC WITH AUTO DIFFERENTIAL STAT 10/02/2020 4:08 PM CDT HEPATIC FUNCTION PANEL STAT 10/02/2020 4:08 PM CDT BASIC METABOLIC PANEL STAT 10/02/2020 4:08 PM CDT POCT GLUCOSE DEVICE Routine 10/02/2020 1 2:40 PM CDT documented in this encounter Results * POCT glucose (10/02/2020 4:45 PM CDT) Glucose, POC 121 70 - 199 mg/dL [facility] Blood specimen (specimen) 10/02/2020 4:45 PM CDT 10/02/2020 4:45 PM CDT us Notinfile Unknown LAB POCT ORDERABLES - DEVICE F inal Result [facility] Department [place] [address] * (ABNORMAL) Differential, auto (10/02/2020 4:08 PM CDT) Pathologist [facility] Neutrophil abs 7.1(H) 1.7 - 6.5 K/cumm [facility] Imm gran abs 0.1 0.0 - 0.1 K/cumm [facility] Lymphocyte abs 2.8 0.8 - 3.3 K/cumm [facility] Monocyte abs 0.9(H) 0.2 - 0.8 K/cumm [facility] Eosinophil abs 0.3 0.0 - 0.5 K/cumm [facility] Basophil abs 0.0 0.0 - 0.1 K/cumm [facility] Neutrophil pct 63.7 % [facility] Comment: Interpretive Data Percent cell count reference ranges are not reported, since discordance with absolute values may lead to misinterpretation of CBC data. Current Interpretive Data was last revised on 2017. Imm gran pct 0.4 % [facility] Comment: Interpretive Data Percent cell count reference ranges are not reported, since discordance with absolute values may lead to misinterpretation of CBC data. Current Interpretive Data was last revised on 2017. Lymphocyte pct 25.0 % [facility] Comment: Interpretive Data Percent cell count reference ranges are not reported, since discordance with absolute values may lead to misinterpretation of CBC data. Current Interpretive Data was last revised on 2017. Monocyte pct 8.2 % [facility] Comment: Interpretive Data Percent cell count reference ranges are not reported, since discordance with absolute values may lead to misinterpretation of CBC data. Current Interpretive Data was last revised on 2017. Eosinophil pct 2.3 % [facility] Comment: Interpretive Data Percent cell count reference ranges are not reported, since discordance with absolute values may lead to misinterpretation of CBC data. Current Interpretive Data was last revised on 2017. Basophil pct 0.4 % [facility] Comment: Interpretive Data Percent cell count reference ranges are not reported, since discordance with absolute values may lead to misinterpretation of CBC data. Current Interpretive Data was last revised on 2017. Blood specimen (specimen) 10/02/2020 4:08 PM CDT 10/02/2020 4:23 PM CDT us Sherry Diehl MD LAB BLOOD ORDERABLES Final Resul t Performing Organization Address City/[facility] Co de Phone Number [facility] [place] [address] * (ABNORMAL) Hepatic function panel (10/02/2020 4:08 PM CDT) Bilirubin, total 0.9 0.1 - 1.2 mg/dL [facility] Bilirubin, direct <0.2 0.1 - 0.3 mg/dL [facility] Protein, pl 8.8(H) 6.5 - 8.5 g/dL [facility] Albumin 4.2 3.5 - 5.0 g/dL [facility] Alk phos 86 40 - 130 Units/L [facility] ALT 24 7 - 45 Units/L [facility] AST 30 10 - 45 Units/L [facility] Blood specimen (specimen) 10/02/2020 4:08 PM CDT 10/02/2020 4:22 PM CDT us Sherry Diehl MD LAB BLOOD ORDERABLES Final Resul t Performing Organization Address [facility]/ZIP Co de Phone Number [facility] Department [place] [address] * (ABNORMAL) CBC with auto differential (10/02/2020 4:08 PM CDT) [facility] WBC 11.1(H) 3.8 - 9.9 K/cumm [facility] Hgb 13.8 11.9 - 15.5 g/dL [facility] Hct 43.6 35.6 - 45.5 % [facility] Plt 293 150 - 400 K/cumm [facility] MPV 10.6 9.1 - 12.3 fL [facility] RBC 4.75 3.90 - 5.20 M/cumm [facility] MCV 91.8 81.3 - 96.4 fL [facility] MCH 29.1 27.1 - 33.3 pg [facility] MCHC 31.7(L) 32.3 - 35.7 g/dL [facility] RDW CV 14.1 11.1 - 14.9 % [facility] RDW SD 47.8 35.7 - 48.1 fL [facility] NRBC abs 0.00 0.00 - 0.01 K/cumm [facility] Blood specimen (specimen) 10/02/2020 4:08 PM CDT 10/02/2020 4:23 PM CDT us Sherry Diehl MD LAB BLOOD ORDERABLES Final Resul t Performing Organization Address [facility] Co de Phone Number [facility] Department [place] [address] * (ABNORMAL) Basic metabolic panel (10/02/2020 4:08 PM CDT) [facility] Sodium 138 135 - 145 mmol/L [facility] Potassium, pl 4.4 3.3 - 4.9 mmol/L [facility] Chloride 101 97 - 110 mmol/L [facility] CO2 25 22 - 32 mmol/L [facility] Anion gap 12 2 - 15 mmol/L [facility] BUN 12 8 - 25 mg/dL [facility] Creatinine 0.76 0.60 - 1.10 mg/dL [facility] Glucose 135 70 - 199 mg/dL [facility] Comment: Interpretive Data Fasting glucose >/= 126 [...] Current interpretive data was last revised 2017. Calcium 10.4(H) 8.5 - 10.3 mg/dL [facility] Blood specimen (specimen) 10/02/2020 4:08 PM CDT 10/02/2020 4:22 PM CDT Sherry Diehl MD LAB BLOOD ORDERABLES Final Resul t Performing Organization Address City/[facility]/ZIP Co de Phone Number [facility] [place] [address] * POCT glucose (10/02/2020 12:40 PM CDT) Glucose, POC 151 70 - 199 mg/dL [facility] Blood specimen (specimen) 10/02/2020 12:40 PM CDT 10/02/2020 12:40 PM CDT Notinfile Unknown LAB POCT ORDERABLES - DEVICE F inal Result Performing Organization Address City/[facility]/ZIP Co de Phone Number [facility] Department [place] [address] documented in this encounter Visit Diagnoses Diagnosis Chronic abdominal pain- Primary Abdominal pain, unspecified site Nausea and vomiting, intractability of vomiting not specified, unspecified vomiting type documented in this encounter Administered Medications Inactive Administered Medications - up to 3 most recent administrations Medication Order MAR Action Action Date Dose Rate Site ondansetron ODT (ZOFRAN-ODT) disintegrating tablet 4 mg 4 mg, oral, Once, On Mon10/02/20 at 1817, For 1 dose Given 10/02/2020 6:28 PM CDT 4 mg documented in this encounter Active and Recently Administered Medications Times are shown in CDT. Scheduled Medication Order 09/30/2020 10/01/2020 10/02/2020 ondansetron ODT (ZOFRAN-ODT) disintegrating tablet 4 mg (COMPLETED) 4 mg, oral, Once, On Mon10/02/20 at 1817, For 1 dose 1828 (Given - Provid er: Ella Lipscomb RN) documented in this encounter Orders Medications Ordered That Tyler ht Not Have Been Administered Count Last Ordered Date First Ordered Date ondansetron ODT (ZOFRAN-ODT) disintegrating tablet 4 mg 1 10/02/2020 Lab Orders Without Results Count Last Ordered D ate First Ordered Date POCT GLUCOSE DEVICE 2 10/02/2020 documented in this encounter Care Teams Electrical Integrator Relationship Specialty Start Date End Date Justen Gale MD [address] [address] PCP - General 10/09/17 Liu Jerez MD Consulting Physician Gastroenterology 07/28/17 [place] [address] [address] [facility] [address] [place] [address] Consulting Physician Pulmonary Disease 08/03/17 Khris Arthur MD [address] [facility] [address] [place] [address] Medical Oncologist/Bead Wrapper Medical Oncology 10/23/17 [place] [address] [facility] [address] [place] [address] Surgeon Orthopedic Surgery 10/23/17 [place] [address] [address] Consulting Physician Pain Management 10/23/17 [place] [address] [address] Referring Physician General Surgery 01/26/18 [place] [address] [facility] [address] [place] [address] Consulting Physician Neurology 01/26/18 documented as of this encounter
--- OUTSIDE RECORDS SUMMARY | 2024-04-26 04:23 | XMS_ITS | Encounter Summary ---
Author Organization [facility] Address [address] [place] [address] Phone Care Team Providers Care Licensing And Registration Director Name Role Phone Liu Jerez MD Unavailable Albert Corbin MD Unavailable Justen Gale MD Primary Care Provider Khris Arthur MD Unavailable [phone] Ko Melendez MD Unavailable John Paul Moyer MD Unavailable [phone] Annel Rod MD Unavailable Anali MARSHALL MD, Carlos M. Unavailable [phone] Reason for Visit * Diagnostic Lab (Routine) - Closed Specialty Diagnoses / Procedures Referred By Contac t Referred To Contact Lab Diagnoses Leukocytosis, unspecified type Procedures Cytogenetics/Genomics Heaven Carrillo MD [address] [place] [address] Phone: tel: fax: Referral ID Status Reason Start Date Expiration Date Visits Re quested Visits Authorized [id number] Closed 10/26/2020 11/25/2021 1 1 Encounter Details Date Type Department Care Team (Late st Contact Info) Description 10/29/2020 2:00 PM CDT Lab [facility] Oncology [address] 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 RN Her repeat CBC actually showed a normal WBC, so if they did not do the BCR-ABL, we can just cancel the test. ??Please let her know her prior leukocytosis was likely reactive and I can see her back armando as needed basis. Thanks! Heaven Call to pt and received VM. Left message results are now normal. Left phone number for her to call with questions. Canceled BCR-ABL FISH. ADDISON,RN documented in this encounter Plan of Treatment Not on file documented as of this encounter Procedures Procedure Name Priority Date/Time Associated Diagnosis Comments DIFFERENTIAL AUTO Routine 10/29/2020 1:5 1 PM CDT Leukocytosis, unspecified type CBC WITH AUTO DIFFERENTIAL Routine 10/29/2020 1:51 PM CDT Leukocytosis, unspecified type documented in this encounter Results * Differential, auto (10/29/2020 1:51 PM CDT) Neutrophil abs 6.3 1.8 - 6.6 K/cumm [facility] Comment:Testing performed by : [facility], [address] [place] [address] Lymphocyte abs 2.3 1.2 - 3.3 K/cumm [facility] Comment:Testing performed by : [facility], [address] [place] [address] Monocyte abs 0.8 0.2 - 1.2 K/cumm [facility] Comment:Testing performed by : [facility], [address] [place] [address] Eosinophil abs 0.3 0.0 - 0.5 K/cumm [facility] Comment:Testing performed by : [facility], [address] [place] [address] Basophil abs 0.1 0.0 - 0.2 K/cumm [facility] Comment:Testing performed by : [facility], [address] [place] [address] Neutrophil pct 64.4 % [facility] Comment: Interpretive Data Percent cell count reference ranges are not reported, since discordance with absolute values may lead to misinterpretation of CBC data. Current Interpretive Data was last revised on 2017. Testing performed by: [facility], [address] [place] [address] Lymphocyte pct 23.8 % [facility] Comment: Interpretive Data Percent cell count reference ranges are not reported, since discordance with absolute values may lead to misinterpretation of CBC data. Current Interpretive Data was last revised on 2017. Testing performed by: [facility], [address] [place] [address] Monocyte pct 8.1 % [facility] Comment:Testing performed by : [facility], [address] [place] [address] Eosinophil pct 3.0 % [facility] Comment:Testing performed by : [facility], [address] [place] [address] Basophil pct 0.7 % [facility] Comment:Testing performed by : [facility], [address] [place] [address] Blood specimen (specimen) 10/29/2020 1:51 PM CDT 10/29/2020 2:03 PM CDT us Heaven Carrillo MD LAB BLOOD ORDERABLES Final R esult [facility] Department [place] [address] * CBC with auto differential (10/29/2020 1:51 PM CDT) WBC 9.8 3.8 - 9.8 K/cumm [facility] Comment:Testing performed by : [address] [address] Hgb 12.8 12.1 - 15.1 g/dL [facility] Comment:Testing performed by : [facility], [address] [place] [address] Hct 38.8 36.1 - 44.3 % [facility] Comment:Testing performed by : [address] [address] Plt 290 140 - 440 K/cumm [facility] Comment:Testing performed by : [address] [address] MPV 7.4 6.8 - 10.4 fL [facility] Comment:Testing performed by : [address] [address] RBC 4.32 3.90 - 5.00 M/cumm [facility] J[facility] Comment:Testing performed by : [address] [address] MCV 89.7 80.0 - 97.6 fL [facility] Comment:Testing performed by : [address] [address] MCH 29.6 26.7 - 33.7 pg [facility] J[facility] Comment:Testing performed by : [address] [address] MCHC 32.9 32.7 - 35.5 g/dL [facility] Comment:Testing performed by : [facility], [address] [facility] [address] RDW CV 14.2 11.8 - 14.6 % [facility] Comment:Testing performed by : [facility], [address] [facility] [address] NRBC abs 0.00 0.00 - 0.01 K/cumm [facility] Comment:Testing performed by : [facility], [address] [facility] [address] Blood specimen (specimen) 10/29/2020 1:51 PM CDT 10/29/2020 2:03 PM CDT Heaven Carrillo MD LAB BLOOD ORDERABLES Final R esult [facility] Department [place] [address] documented in this encounter Visit Diagnoses Diagnosis Leukocytosis, unspecified type documented in this encounter Orders Lab Orders Without Results Count Last Ordered D ate First Ordered Date CYTOGENETICS AND GENOMICS 1 10/29/2020 documented in this encounter Care Teams Licensing And Registration Director Relationship Specialty Start Date End Date Justen Gale MD 2 [facility] [address] [place] [address] PCP - General 10/09/17 Liu Jerez MD Consulting Physician Gastroenterology 07/28/17 [place] [address] [facility] [address] [place] [address] Consulting Physician Pulmonary Disease 08/03/17 Khris Arthur MD 49[address] [facility] [address] [place] [address] Medical Oncologist/Tobacco Shaker Medical Oncology 10/23/17 [place] [address] [facility] [address] [place] [address] Surgeon Orthopedic Surgery 10/23/17 [place] [address] [address] Consulting Physician Pain Management 10/23/17 [place] [address] [address] Referring Physician General Surgery 01/26/18 [place] [address] [facility] [address] [place] [address] Consulting Physician Neurology 01/26/18 documented as of this encounter
--- OUTSIDE RECORDS SUMMARY | 2024-04-26 04:23 | XMS_ITS | Encounter Summary ---
Author Organization [facility] Address [address] [place] [address] Phone Care Team Providers Care Sock Lining Examiner Name Role Phone Liu Jerez MD Unavailable Albert Corbin MD Unavailable Justen Gale MD Primary Care Provider [phone] Khris Arthur MD Unavailable [phone] Ko Melendez MD Unavailable John Paul Moyer MD Unavailable Annel Rod MD Unavailable Anali MARSHALL MD, Carlos M. 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 TOR MACHINE OPERATOR documented in this encounter Plan of Treatment Not on file documented as of this encounter Visit Diagnoses Not on filedocumented in this encounter Care Teams Sock Lining Examiner Relationship Specialty Start Date End Date Justen Gale MD 2 [facility] [address] [place] [address] PCP - General 10/09/17 Liu Jerez MD Consulting Physician Gastroenterology 07/28/17 [place] [address] [facility] [facility] [address] [place] [address] Consulting Physician Pulmonary Disease 08/03/17 Khris Arthur MD 4921 [facility] [address] [place] [address] Medical Oncologist/Deburrer Machine Medical Oncology 10/23/17 [place] [address] [facility] [address] [place] [address] Surgeon Orthopedic Surgery 10/23/17 [place] [address] [facility] [address] [place] [address] Consulting Physician Pain Management 10/23/17 [place] [address] [facility] [address] [place] [address] Referring Physician General Surgery 01/26/18 [place] [address] [facility] [address] [place] [address] Consulting Physician Neurology 01/26/18 documented as of this encounter
--- OUTSIDE RECORDS SUMMARY | 2024-04-26 04:23 | XMS_ITS | Encounter Summary ---
Author Organization [facility] Address [address] [place] [address] Care Team Providers Care Manager Location Name Role Phone Liu Jerez MD Unavailable Albert Corbin MD Unavailable [phone] Justen Gale MD Primary Care Provider Khris Arthur MD Unavailable [phone] Ko Melendez MD Unavailable John Paul Moyer MD Unavailable Annel Rod MD Unavailable Anali MARSHALL MD, Carlos M. 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 Appointment has been scheduled with Dr. Carrillo on 09/08. documented in this encounter Plan of Treatment Not on file documented as of this encounter Visit Diagnoses Not on filedocumented in this encounter Care Teams Manager Location Relationship Specialty Start Date End Date Justen Gale MD 2 [facility] [address] [place] [address] PCP - General 10/09/17 Liu Jerez MD Consulting Physician Gastroenterology 07/28/17 [place] [address] [address] [facility] [address] [place] [address] Consulting Physician Pulmonary Disease 08/03/17 Khris Arthur MD [address] [facility] [address] [place] [address] Medical Oncologist/Publishing Director Medical Oncology 10/23/17 [place] [address] [facility] [address] [place] [address] Surgeon Orthopedic Surgery 10/23/17 [place] [address] [facility] [address] [place] [address] Consulting Physician Pain Management 10/23/[address] [place] [address] [facility] [address] [place] [address] Referring Physician General Surgery 01/26/18 [place] [address] [facility] [address] [place] [address] Consulting Physician Neurology 01/26/18 documented as of this encounter
--- OUTSIDE RECORDS SUMMARY | 2024-04-26 04:23 | XMS_ITS | Encounter Summary ---
Author Organization [facility] Address [address] [place] [address] Phone Care Team Providers Care Gaggerman Name Role Phone Liu Jeerz MD Unavailable Albert Corbin MD Unavailable [phone] Justen Gale MD Primary Care Provider [phone] Khris Arthur MD Unavailable [phone] Ko Melendez MD Unavailable John Paul Moyer MD Unavailable Annel Rod MD Unavailable Anali MARSHALL MD, Carlos M. Unavailable Encounter Details Date Type Department Care Team (Late st Contact Info) Description 08/06/2020 Orders Only [facility] Oncology [address] [facility] 7th [place] [address] [place] [address] Jeanine Ba, A Malignant neoplasm of upper-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, unspecified estrogen receptor status (CMS/HCC); Malignant neoplasm of overlapping sites of left female breast, unspecified estrogen receptor status (CMS/HCC); Malignant neoplasm of female breast, unspecified estrogen receptor status, unspecified laterality, unspecified site of breast (CMS/HCC) Social History Tobacco Use Types Packs/Day Years Used Date Smoking Tobacco: Former Smokeless Tobacco: Never Comments:remote tobacco use Alcohol Use Standard Drinks/Week Comments No 0 (1 standard drink = 0.6 oz pur e alcohol) PHQ-2 Answer Date Recorded PHQ-2 Score 1 12/15/2018 Comments No Sex and Gender Information Value Date Recorded Sex Assigned at Not on file 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 Gender Identity Not on file Sexual Orientation [...] daily After a meal 90 tablet 08/06/2020 11/05/2020 documented in this encounter Plan of Treatment [...] End Da te exemestane (AROMASIN) 25 mg tabletIndications:Maligna nt neoplasm of upper-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, unspecified estrogen receptor status (HCC),Malignant neoplasm of overlapping sites of left female breast, unspecified estrogen receptor status (HCC),Malignant neoplasm of female breast, unspecified estrogen receptor status, unspecified laterality, unspecified site of breast (HCC) Take 1 tablet (25 mg total) by mouth daily After a meal Reorder 08/01/2019 08/06/2020 documented as of this encounter Care Teams Gaggerman Relationship Specialty Start Date End Date Justen Gale MD 2 [facility] [address] [place] [address] PCP - General 10/09/17 Liu Jerez MD Consulting Physician Gastroenterology 07/28/17 [place] [address] [facility] [address] [place] [address] Consulting Physician Pulmonary Disease 08/03/17 Khris Arthur MD 49[address] [facility] [address] [place] [address] Medical Oncologist/Computer Forensics Analyst Medical Oncology 10/23/17 [place] [address] [facility] [address] [place] [address] Surgeon Orthopedic Surgery 10/23/17 [place] [address] [facility] [address] [place] [address] Consulting Physician Pain Management 10/23/17 [place] [address] [facility] [address] [place] [address] Referring Physician General Surgery 01/26/18 [place] [address] [facility] [address] [place] [address] Consulting Physician Neurology 01/26/18 documented as of this encounter
--- OUTSIDE RECORDS SUMMARY | 2024-04-26 04:23 | XMS_ITS | Encounter Summary ---
Author Organization [facility] Address [address] [place] [address] Phone Care Team Providers Care Drum Loader And Unloader Name Role Phone Liu Jerez MD Unavailable Albert Corbin MD Unavailable Justen Gale MD Primary Care Provider [phone] Khris Arthur MD Unavailable [phone] Ko Melendez MD Unavailable John Paul Moyer MD Unavailable Annel Rod MD Unavailable Anali MARSHALL MD, Carlos M. Unavailable Reason for Visit * Reason Comments Breast Cancer * Diagnostic Imaging (Routine) - Canceled Specialty Diagnoses / Procedures Referred By Contac t Referred To Contact Diagnoses Osteopenia, unspecified location Procedures Dexa Axial Skeleton Bone Density 1 or 2 Site Khris Arthur MD [address] [facility] [address] [place] [address] Phone: tel: fax: [facility] (All Locations) Referral ID Status Reason Start Date Expiration Date V isits Requested Visits Authorized [id number] Canceled 03/12/2020 04/11/2021 1 1 Encounter Details Date Type Department Care Team (Latest Contact Info) Description 11/10/2020 10:50 AM CDT Clinical Support [facility] Bone [place] [id number] [facility] 5th [place] [address] [place] [address] Osteopenia, unspecified location; Postmenopausal; Other specified disorders of bone density and structure, left thigh; [facility] (current) use of anticoagulants; Use 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 inhibitors Social History Tobacco Use Types Packs/Day Years Used Date Smoking Tobacco: Former Smokeless Tobacco: Never Comments:remote tobacco use Alcohol Use Standard Drinks/Week Comments No 0 (1 standard drink = 0.6 oz pur e alcohol) PHQ-2 Answer Date Recorded PHQ-2 Score 1 12/15/2018 Comments No Sex and Gender Information Value Date Recorded Sex Assigned at Not on file 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 Gender Identity Not on file Sexual Orientation Not on file documented as of this encounter Plan of Treatment Not on file documented as of this encounter Procedures Procedure Name Priority Date/Time Associated Diagnosis Comments DEXA AXIAL SKELETON BONE DENSITY 1 OR MORE SITES Schedule Routine, Read Routine (OP Routine) 11/10/2020 11:09 AM CDT Osteopenia, unspecified location documented in this encounter Results * Dexa Axial Skeleton Bone Density 1 or 2 Site (11/10/2020 11:09 AM CDT) Anatomical Region Laterality Modality Body N/A Radiographic Lizeth ging Narrative 11/10/2020 11:49 AM CDT Patient Name: Karly Marques Date of : 1955 Date of scan: 11/10/2020 Bone mineral density was performed on a [employer] Discovery Densitometer. ?? Based on machine cross-calibration and precision studies the least significant changes of this densitometer is 0.024 g/cm2 at the spine, 0.020 g/cm2 at the total proximal femur, and 0.014g/cm2 at the forearm. HISTORY: This is a 65 y.o. postmenopausal female with a history of breast cancer and thyroid disease. She reports that she has quit smoking. She has never used smokeless tobacco. She is currently on treatment with calcium, vitamin D, aromatase inhibitor and anticoagulants; and was previously treated with tamoxifen and diuretics. She has a current complaint of back pain, neck pain and leg pain. INDICATIONS: Menopause status, treatment monitoring and aromatase inhibitor therapy. FINDINGS: BONE MINERAL DENSITY OF THE LUMBAR SPINE Bone Mineral Density (BMD) of the lumbar spine was measured from L1-L4 and the average density was calculated to be 1.064 gm/cm2. This corresponds to a T-score (standard deviations from the mean of young adults) of 0.2. When compared to the previous study of 05/15/2017 there has been a -0.113 gm/cm (-9.6%) decrease in bone density that is considered significant. BONE MINERAL DENSITY OF THE PROXIMAL FEMUR Bone Mineral Density (BMD) of the left hip total was found to be 0.788 gm/cm2. This corresponds to a T-score standard deviations from the mean of young adults of -1.3. Femoral neck is 0.648 gm/cm2 with a T-score (standard deviations from the mean of young adults) of -1.8. When compared to the previous study of 05/15/2017 there has been a -0.147 gm/cm (-15.7%) decrease in bone density that is considered significant. SUMMARY: Bone mineral density shows evidence of low bone mass at the proximal femur and moderately increased fracture risk (Osteopenia). There has been a significant decrease in [...] bone mineral density scan were prepared by Kiesha Hernandez) MARY who is accredited by the International Society of Clinical Densitometry. The overall patient assessment and scan interpretation were performed by Nita William M.D. who is certified by the International Society of Clinical Densitometry. [id number] Khris Arthur MD [facility] DXA PROCEDURES F inal Result documented in this encounter Visit Diagnoses Diagnosis Osteopenia, unspecified location Postmenopausal Asymptomatic postmenopausal status (age-related) (natural) Other specified disorders of bone density and structure, left thigh [facility] (current) use of anticoagulants Long-term (current) use of anticoagulants Use 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 inhibitors documented in this encounter Care Teams Drum Loader And Unloader Relationship Specialty Start Date End Date Justen Gale MD [address] [address] PCP - General 10/09/17 Liu Jerez MD Consulting Physician Gastroenterology 07/28/17 [place] [address] [facility] [address] [place] [address] Consulting Physician Pulmonary Disease 08/03/17 Khris Arthur MD [address] [facility] [address] [place] [address] Medical Oncologist/Contact Agent Medical Oncology 10/23/17 [place] [address] [facility] [address] [place] [address] Surgeon Orthopedic Surgery 10/23/17 [place] [address] [facility] [address] [place] [address] Consulting Physician Pain Management 10/23/17 [place] [address] [facility] [address] [place] [address] Referring Physician General Surgery 01/26/18 [place] [address] [address] [facility] [address] [place] [address] Consulting Physician Neurology 01/26/18 documented as of this encounter
--- OUTSIDE RECORDS SUMMARY | 2024-04-26 04:23 | XMS_ITS | Encounter Summary ---
Author Organization [facility] Address [address] [place] [address] Phone Care Team Providers Care Laundry Room Attendant Name Role Phone Liu Jerez MD Unavailable Albert Corbin MD Unavailable [phone] Justen Gale MD Primary Care Provider Khris Arthur MD Unavailable [phone] Ko Melendez MD Unavailable John Paul Moyer MD Unavailable Annel Rod MD Unavailable Anali MARSHALL MD, Carlos M. Unavailable [phone] Reason for Visit * Reason Onset Date Comments Reschedule Dexa/Lab/Rov 09/28/2020 Encounter Details Date Type Department Care Team (Late st Contact Info) Description 09/28/2020 Telephone [facility] 7th [place] [address] [place] [address] Jeanine Ba, RMA Reschedule Dexa/Lab/Rov Social History Tobacco Use Types Packs/Day Years Used Date Smoking Tobacco: Former Smokeless Tobacco: Never Comments:remote tobacco use Alcohol Use Standard Drinks/Week Comments No 0 (1 standard drink = 0.6 oz pur e alcohol) PHQ-2 Answer Date Recorded PHQ-2 Score 1 12/15/2018 Comments No Sex and Gender Information Value Date Recorded Sex Assigned at Not on file 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 No answer, left message with new date and times. Mailed Itinerary documented in this encounter Plan of Treatment Not on file documented as of this encounter Visit Diagnoses Not on filedocumented in this encounter Care Teams Laundry Room Attendant Relationship Specialty Start Date End Date Justen Gale MD 2 [facility] [address] [place] [address] PCP - General 10/09/17 Liu Jerez MD Consulting Physician Gastroenterology 07/28/[address] [place] [address] [facility] [address] [place] [address] Consulting Physician Pulmonary Disease 08/03/17 [place] [address] [place] [address] [address] [place] [address] Medical Oncologist/Dry Ice Maker Medical Oncology 10/23/[address] [place] [address] [facility] [address] [place] [address] Surgeon Orthopedic Surgery 10/23/17 [place] [address] [facility] [address] [place] [address] Consulting Physician Pain Management 10/23/[address] [place] [address] [facility] [address] [place] [address] Referring Physician General Surgery 01/26/18 [place] [address] [facility] [address] [place] [address] Consulting Physician Neurology 01/26/18 documented as of this encounter
--- OUTSIDE RECORDS SUMMARY | 2024-04-26 04:23 | XMS_ITS | Encounter Summary ---
Author Organization [facility] Address [address] [place] [address] Phone Care Team Providers Care Public Relations Analyst Name Role Phone Liu Jerez MD Unavailable Albert Corbin MD Unavailable Justen Gael MD Primary Care Provider Khris Arthur MD Unavailable [phone] Ko Melendez MD Unavailable John Paul Moyer MD Unavailable [phone] Annel Rod MD Unavailable Anali MARSHALL MD, Carlos M. 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 Gender Identity Not on file Sexual Orientation Not on file documented as of this encounter Plan of Treatment Not on file documented as of this encounter Results * Vitamin D 25 hydroxy (11/10/2020 11:24 AM CDT) Pathologist [facility] Vitamin D 25-OH 32 30 - 80 ng/mL [facility] Blood specimen (specimen) 11/10/2020 11:24 AM CDT 11/10/2020 11:51 AM CDT Khris Arthur MD LAB BLOOD ORDERABLES Final Result [facility] [place] [address] * (ABNORMAL) Comprehensive metabolic panel (11/10/2020 11:24 AM CDT) Pathologist [facility] Sodium 133(L) 135 - 145 mmol/L [facility] Comment:Testing performed by : [facility], [address] [place] [phone] Potassium, pl 4.9 3.3 - 4.9 mmol/L [facility] Comment:Testing performed by : [facility], [address] [place] [phone] Chloride 100 97 - 110 mmol/L [facility] Comment:Testing performed by : [facility], [address] [place] [address] CO2 26 22 - 32 mmol/L [facility] Comment:Testing performed by : [facility], [address] [place] [phone] Anion gap 7 2 - 15 mmol/L [facility] Comment:Testing performed by : [facility], [address] [place] [phone] BUN 24 8 - 25 mg/dL [facility] Comment:Testing performed by : [facility], [address] [place] [phone] Creatinine 0.69 0.60 - 1.10 mg/dL [facility] Comment:Testing performed by : [facility], [address] [place] [address] Glucose 270(H) 70 - 199 mg/dL [facility] Comment: [...] 2017. Testing performed by: [facility], [address] [place] [phone] Calcium 10.4(H) 8.5 - 10.3 mg/dL [facility] Comment:Testing performed by : [facility], [address] [place] [address] Bilirubin, total 0.4 0.1 - 1.2 mg/dL [facility] Comment:Testing performed by : [facility], [address] [place] [phone] Protein, pl 8.8(H) 6.5 - 8.5 g/dL [facility] Comment:Testing performed by : [address] [address] Albumin 4.1 3.5 - 5.0 g/dL [facility] Comment:Testing performed by : [address] [address] Alk phos 88 40 - 130 Units/L [facility] Comment:Testing performed by : [facility], [address] [place] [phone] ALT 15 7 - 45 Units/L [facility] Comment:Testing performed by : [facility], [address] [facility] [address] AST 12 10 - 45 Units/L [facility] Comment:Testing performed by : [facility], [address] [facility] [address] Blood specimen (specimen) 11/10/2020 11:24 AM CDT 11/10/2020 11:25 AM CDT Khris Arthur MD LAB BLOOD ORDERABLES Final Result [facility] [place] [address] documented in this encounter Visit Diagnoses Diagnosis Malignant neoplasm of upper-inner quadrant of left breast in female, estrogen receptor positive (HCC)- Primary documented in this encounter Care Teams Public Relations Analyst Relationship Specialty Start Date End Date Justen Gale MD 2 [facility] [address] [place] [address] PCP - General 10/09/17 Liu Jerez MD Consulting Physician Gastroenterology 07/28/17 [place] [address] [address] [address] [place] [address] Consulting Physician Pulmonary Disease 08/03/17 Khris Arthur MD 49[address] [facility] [address] [place] [address] Medical Oncologist/Energy Management Specialist Medical Oncology 10/23/17 [place] [address] [address] Surgeon Orthopedic Surgery 10/23/17 [place] [address] [address] Consulting Physician Pain Management 10/23/17 [place] [address] [address] Referring Physician General Surgery 01/26/18 [place] [address] [facility] [address] [place] [address] Consulting Physician Neurology 01/26/18 documented as of this encounter
--- OUTSIDE RECORDS SUMMARY | 2024-04-26 04:23 | XMS_ITS | Encounter Summary ---
Author Organization [facility] Address [address] [place] [address] Phone Care Team Providers Care Enterprise Engineer Name Role Phone Liu Jerez MD Unavailable Albert Corbin MD Unavailable Justen Gale MD Primary Care Provider Khris Arthur MD Unavailable [phone] Ko Melendez MD Unavailable John Paul Moyer MD Unavailable Annel Rod MD Unavailable Anali MARSHALL MD, Carlos M. Unavailable Reason for Visit * Reason Onset Date Comments Confirmation 09/07/2020 Encounter Details Date Type Department Care Team (Late st Contact Info) Description 09/07/2020 Telephone [facility] Hematology [address] [facility] 7th [place] [address] [place] [address] Sabrina Eubanks Confirmation Social History Tobacco Use Types Packs/Day Years Used Date Smoking Tobacco: Former Smokeless Tobacco: Never Comments:remote tobacco use Alcohol Use Standard Drinks/Week Comments No 0 (1 standard drink = 0.6 oz pur e alcohol) PHQ-2 Answer Date Recorded PHQ-2 Score 1 12/15/2018 Comments No Sex and Gender Information Value Date Recorded Sex Assigned at Not on file 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 consult/lab appt. with Dr. Carrillo on 09-08-20 @ 10:00 AM at [facility]. documented in this encounter Plan of Treatment Not on file documented as of this encounter Visit Diagnoses Not on filedocumented in this encounter Care Teams Enterprise Engineer Relationship Specialty Start Date End Date Justen Gale MD [address] [address] PCP - General 10/09/17 Liu Jerez MD Consulting Physician Gastroenterology 07/28/17 [place] [address] [facility] [address] [place] [address] Consulting Physician Pulmonary Disease 08/03/17 Khris Arthur MD 49[address] [facility] [address] [place] [address] Medical Oncologist/Horn Player Medical Oncology 10/23/17 [place] [address] [facility] [address] [place] [address] Surgeon Orthopedic Surgery 10/23/17 [place] [address] [address] Consulting Physician Pain Management 10/23/17 [place] [address] [address] Referring Physician General Surgery 01/26/18 [place] [address] [facility] [address] [place] [address] Consulting Physician Neurology 01/26/18 documented as of this encounter
--- OUTSIDE RECORDS SUMMARY | 2024-04-26 04:23 | XMS_ITS | Encounter Summary ---
Author Organization [facility] Address [address] [place] [address] Phone Care Team Providers Care Pcat Instructor Name Role Phone Liu Jerez MD Unavailable [phone] Albert Corbin MD Unavailable [phone] Justen Gale MD Primary Care Provider [phone] Khris Arthur MD Unavailable [phone] Ko Melendez MD Unavailable John Paul Moyer [...] APPT ONC LAB ONLY Khris Arthur MD [address] [facility] [address] [place] [address] Phone: tel: fax: Khris Arthur MD [address] [facility] [address] [place] [address] Phone: tel: fax: Referral ID Status Reason Start Date Expiration Date V isits Requested Visits Authorized [id number] Closed Specialty Services Required 07/23/2020 04/23/2024 99 99 Encounter Details Date Type Department Care Team (Late st Contact Info) Description 11/10/2020 11:30 AM CDT Lab [facility] Oncology [address] [facility] 7th [place] [address] [place] [address] Malignant neoplasm of upper-inner quadrant of left [...] on file 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 Gender Identity Not on file Sexual Orientation Not on file documented as of this encounter Plan of Treatment Not on file documented as of this encounter Procedures Procedure Name Priority Date/Time Associated Diagnosis Comments VITAMIN D 25 HYDROXY Routine 11/10/2020 11:24 AM CDT Malignant neoplasm of upper-inner quadrant of left breast in female, estrogen receptor positive (CMS/HCC) (HCC) COMPREHENSIVE METABOLIC PANEL Routine 11/10/2020 11:24 AM CDT Malignant neoplasm of upper-inner quadrant of left breast in female, estrogen receptor positive (CMS/HCC) (HCC) documented in this encounter Results * (ABNORMAL) Comprehensive metabolic panel (11/10/2020 11:24 AM CDT) Sodium 133(L) 135 - 145 mmol/L [facility] Comment:Testing performed by : [facility], [address] [place] [phone] Potassium, pl 4.9 3.3 - 4.9 mmol/L [facility] Comment:Testing performed by : [facility], [address] [place] [phone] Chloride 100 97 - 110 mmol/L [facility] Comment:Testing performed by : [facility], [address] [place] [phone] CO2 26 22 - 32 mmol/L [facility] Comment:Testing performed by : [facility], [address] [place] [phone] Anion gap 7 2 - 15 mmol/L [facility] Comment:Testing performed by : [facility], [address] [place] [phone] BUN 24 8 - 25 mg/dL [facility] Comment:Testing performed by : [facility], [address] [place] [phone] Creatinine 0.69 0.60 - 1.10 mg/dL [facility] Comment:Testing performed by : [facility], [address] [place] [phone] Glucose 270(H) 70 - 199 mg/dL [facility] [...] was last revised 2017. Testing performed by: [facility], [address] [place] [address] Calcium 10.4(H) 8.5 - 10.3 mg/dL [facility] Comment:Testing performed by : [facility], [address] [place] [address] Bilirubin, total 0.4 0.1 - 1.2 mg/dL [facility] Comment:Testing performed by : [facility], [address] [place] [address] Protein, pl 8.8(H) 6.5 - 8.5 g/dL [facility] Comment:Testing performed by : [facility], [address] [place] [phone] Albumin 4.1 3.5 - 5.0 g/dL [facility] Comment:Testing performed by : [facility], [address] [place] [phone] Alk phos 88 40 - 130 Units/L [facility] Comment:Testing performed by : [facility], [address] [place] [phone] ALT 15 7 - 45 Units/L [facility] Comment:Testing performed by : [facility], [address] [place] [phone] AST 12 10 - 45 Units/L [facility] Comment:Testing performed by : [facility], [address] [place] [phone] Blood specimen (specimen) 11/10/2020 11:24 AM CDT 11/10/2020 11:25 AM CDT Khris Arthur MD LAB BLOOD ORDERABLES Final Result [facility] [place] [address] * Vitamin D 25 hydroxy (11/10/2020 11:24 AM CDT) Vitamin D 25-OH 32 30 - 80 ng/mL [facility] Blood specimen (specimen) 11/10/2020 11:24 AM CDT 11/10/2020 11:51 AM CDT Khris Arthur MD LAB BLOOD ORDERABLES Final Result [facility] Department [place] [address] documented in this encounter Visit Diagnoses Diagnosis Malignant neoplasm of upper-inner quadrant of left breast in female, estrogen receptor positive (HCC) documented in this encounter Care Teams Pcat Instructor Relationship Specialty Start Date End Date Justen Gale MD 2 [facility] [address] [place] [address] PCP - General 10/09/17 Liu Jerez MD Consulting Physician Gastroenterology 07/28/17 [place] [address] [facility] [address] [place] [address] Consulting Physician Pulmonary Disease 08/03/17 Khris Arthur MD [address] [facility] [address] [place] [address] Medical Oncologist/Director Of Teacher Education Medical Oncology 10/23/17 [place] [address] [facility] [address] [place] [address] Surgeon Orthopedic Surgery 10/23/17 [place] [address] [facility] [address] [place] [address] Consulting Physician Pain Management 10/23/17 [place] [address] [facility] [address] [place] [address] Referring Physician General Surgery 01/26/18 [place] [address] [facility] [address] [place] [address] Consulting Physician Neurology 01/26/18 documented as of this encounter
--- OUTSIDE RECORDS SUMMARY | 2024-04-26 04:23 | XMS_ITS | Encounter Summary ---
Author Organization [facility] Address [address] [place] [address] Phone Care Team Providers Care Machine Stripper Cutter Name Role Phone Liu Jerez MD Unavailable [phone] Albert Corbin MD Unavailable Justen Gale MD Primary Care Provider Khris Arthur MD Unavailable [phone] Ko Melendez MD Unavailable [phone] John Paul Moyer MD Unavailable Annel Rod MD Unavailable Anali MARSHALL MD, Carlos M. 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 Camarillo sooner than 11/10. Returned her call, LMVM asking for call back to discuss. documented in this encounter Plan of Treatment Not on file documented as of this encounter Visit Diagnoses Not on filedocumented in this encounter Care Teams Machine Stripper Cutter Relationship Specialty Start Date End Date Justen Gale MD [address] [address] PCP - General 10/09/17 Liu Jerez MD Consulting Physician Gastroenterology 07/28/17 [place] [address] [facility] [address] [place] [address] Consulting Physician Pulmonary Disease 08/03/17 Khris Arthur MD 49[address] [facility] [address] [place] [address] Medical Oncologist/Hand Box Coverer Medical Oncology 10/23/17 [place] [address] [facility] [address] [place] [address] Surgeon Orthopedic Surgery 10/23/17 [place] [address] [address] Consulting Physician Pain Management 10/23/17 [place] [address] [facility] [address] [place] [address] Referring Physician General Surgery 01/26/18 [place] [address] [facility] [address] [place] [address] Consulting Physician Neurology 01/26/18 documented as of this encounter
--- OUTSIDE RECORDS SUMMARY | 2024-04-26 04:23 | XMS_ITS | Encounter Summary ---
Author Organization [facility] Address [address] [place] [address] Phone Care Team Providers Care Mining Captain Name Role Phone Liu Jerez MD Unavailable Albert Corbin MD Unavailable Justen Gale MD Primary Care Provider [phone] Khris Arthur MD Unavailable [phone] Ko Melendez MD Unavailable [phone] John Paul Moyer MD Unavailable [phone] Annel Rod MD Unavailable Anali MARSHALL MD, Carlos M. Unavailable [phone] Reason for Visit * Reason Onset Date Comments Confirmation 10/28/2020 Encounter Details Date Type Department Care Team (Late st Contact Info) Description 10/28/[address] 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 consult/lab appt. with Dr. Carrillo on 10-29-20 @ 1:00 PM at [facility] [address]. documented in this encounter Plan of Treatment Not on file documented as of this encounter Visit Diagnoses Not on filedocumented in this encounter Care Teams Mining Captain Relationship Specialty Start Date End Date Justen Gale MD [address] [address] PCP - General 10/09/17 Liu Jerez MD Consulting Physician Gastroenterology 07/28/17 [place] [address] [facility] [address] [place] [address] Consulting Physician Pulmonary Disease 08/03/17 Khris Arthur MD 4921 [facility] [address] [place] [address] Medical Oncologist/Bradley Linebacker Crewmember Medical Oncology 10/23/17 [place] [address] [facility] [address] [place] [address] Surgeon Orthopedic Surgery 10/23/17 [place] [address] [address] Consulting Physician Pain Management 10/23/17 [place] [address] [address] Referring Physician General Surgery 01/26/18 [place] [address] [facility] [address] [place] [address] Consulting Physician Neurology 01/26/18 documented as of this encounter
--- OUTSIDE RECORDS SUMMARY | 2024-04-26 04:23 | XMS_ITS | Encounter Summary ---
Author Organization [facility] Address [address] [place] [address] Phone Care Team Providers Care French Teacher Name Role Phone Liu Jerez MD Unavailable Albert Corbin MD Unavailable [phone] Justen Gale MD Primary Care Provider Khris Arthur MD Unavailable [phone] Ko Melendez MD Unavailable John Paul Moyer MD Unavailable [phone] Annel Rod MD Unavailable Anali MARSHALL MD, Carlos M. Unavailable Encounter Details Date Type Department Care Team (Late st Contact Info) Description 10/29/2020 Orders Only [facility] [address] [place] [address] Heaven Carrillo MD [address] [place] [address] Social History Tobacco Use Types Packs/Day Years Used Date Smoking Tobacco: Former Smokeless Tobacco: Never Comments:remote tobacco use Alcohol Use Standard Drinks/Week Comments No 0 (1 standard drink = 0.6 oz pur e alcohol) PHQ-2 Answer Date Recorded PHQ-2 Score 1 12/15/2018 Comments No Sex and Gender Information Value Date Recorded Sex Assigned at Not on file 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 Gender Identity Not on file Sexual Orientation Not on file documented as of this encounter Plan of Treatment Not on file documented as of this encounter Procedures Procedure Name Priority Date/Time Associated Diagnosis Comments CYTOGENETICS AND GENOMICS Routine 10/29/2020 1:43 PM CDT documented in this encounter Results * Cytogenetics/Genomics (10/29/2020 1:43 PM CDT) Peripheral Blood For Pathologist Review 10/29/2020 1:43 PM CDT 10/29/2020 1:43 PM CDT Narrative 11/05/2020 2:11 PM CDT EPIC results best viewed via link to PDF [facility] Department of Pathol [address] [place] [address] ? Patient Information Name: ??MOHSEN SALAZARTye Gender: ??F : ??1955 (Age: 65) Tissue: ??FISH Only Leukemic Blood Visit Information Hospital #: ? [id number] Facility: ? [facility] Service: ? [facility] Location: ? [facility] [place] [facility] Patient Type: ? [facility] ? Specimen Information: Culture #: ??[id number] Date Collected: ??10/29/2020 Date Accessioned: ??11/04/2020 Date Ordered: ??10/29/2020 Physician(s): ? Heaven Carrillo M.D. ? Processing: ? N/A Indication: ? leuckocytosis Specimen Quality: ? Transport/Delivery delay Study Cancelled CLINICAL REPORT FLUORESCENCE IN-SITU HYBRIDIZATION [FISH] ?? Karyotype: N/A Diagnosis: FISH ANALYSIS: ? STUDY CANCELLED INTERPRETATION: This study was cancelled at the request of Dr. Heaven Carrillo per e-mail from Lisa Rudd (Nurse Coordinator) on 11/04/2020. ?? Report Electronically Reviewed and Signed Out By Mary Esquivel, PhD, [facility] Date Reported: ??11/05/2020 Net Mvc Developer, Cytogenomics and Molecular Pathology Electric Relay Tester Professor, Division of Laboratory and Genomic Medicine Heaven Carrillo MD LAB GENETIC TESTING Final Re sult documented in this encounter Visit Diagnoses Not on filedocumented in this encounter Care Teams French Teacher Relationship Specialty Start Date End Date Justen Gale MD 2 [facility] [address] [place] [address] PCP - General 10/09/17 Liu Jerez MD Consulting Physician Gastroenterology 07/28/17 [place] [address] [address] [facility] [address] [place] [address] Consulting Physician Pulmonary Disease 08/03/17 Khris Arthur MD [address] [facility] [address] [place] [address] Medical Oncologist/Recruiter Manager Medical Oncology 10/23/17 [place] [address] [address] [facility] [address] [place] [address] Surgeon Orthopedic Surgery 10/23/17 [place] [address] [facility] [address] [place] [address] Consulting Physician Pain Management 10/23/17 [place] [address] [facility] [address] [place] [address] Referring Physician General Surgery 01/26/18 [place] [address] [facility] [address] [place] [address] Consulting Physician Neurology 01/26/18 documented as of this encounter
--- OUTSIDE RECORDS SUMMARY | 2024-04-26 04:23 | XMS_ITS | Encounter Summary ---
Author Organization [facility] Address [address] [place] [address] Phone Care Team Providers Care Superintendent Pipelines Name Role Phone Liu Jerez MD Unavailable Albert Corbin MD Unavailable Justen Gale MD Primary Care Provider Khris Arthur MD Unavailable [phone] Ko Melendez MD Unavailable [phone] John Paul Moyer MD Unavailable Annel Rod MD Unavailable Anali MARSHALL MD, Carlos M. 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 Gender Identity Not on file Sexual Orientation Not on file documented as of this encounter Plan of Treatment Not on file documented as of this encounter Procedures Procedure Name Priority Date/Time Associated Diagnosis Comments SCAN - LABS 07/22/2020 documented in this encounter Results * SCAN - LABS (07/22/2020) Provider Scanning Final Result documented in this encounter Visit Diagnoses Not on filedocumented in this encounter Care Teams Superintendent Pipelines Relationship Specialty Start Date End Date Justen Gale MD 2 [facility] [address] [place] [address] PCP - General 10/09/17 Liu Jerez MD Consulting Physician Gastroenterology 07/28/17 [place] [address] [address] [place] [id number] [place] [address] Consulting Physician Pulmonary Disease 08/03/17 Khris Arthur MD [address] [facility] [address] [place] [address] Medical Oncologist/Aesthetics Instructor Medical Oncology 10/23/17 [place] [address] [address] [facility] [address] [place] [address] Surgeon Orthopedic Surgery 10/23/17 [place] [address] [address] [facility] [address] [place] [address] Consulting Physician Pain Management 10/23/17 [place] [address] [address] [facility] [address] [place] [address] Referring Physician General Surgery 01/26/18 [place] [address] [address] [facility] [address] [place] [address] Consulting Physician Neurology 01/26/18 documented as of this encounter
--- OUTSIDE RECORDS SUMMARY | 2024-04-26 04:23 | XMS_ITS | Encounter Summary ---
Author Organization [facility] Address [address] [place] [address] Phone Care Team Providers Care Nurseryman Assistant Name Role Phone Liu Jerez MD Unavailable [phone] Albert Corbin MD Unavailable [phone] Justen Gale MD Primary Care Provider [phone] Khris Arthur MD Unavailable [phone] Ko Melendez MD Unavailable John Paul Moyer MD Unavailable Annel Rod MD Unavailable Anali MARSHALL MD, Carlos M. Unavailable [phone] Reason for Referral * Diagnostic Lab (Routine) - Closed Specialty Diagnoses / Procedures Referred By Contac t Referred To Contact Lab Diagnoses Leukocytosis, unspecified type Procedures Cytogenetics/Genomics Heaven Carrillo MD [address] [place] [address] Phone: tel: fax: Referral ID Status Reason Start Date Expiration Date Visits Re quested Visits Authorized [id number] Closed 10/26/2020 11/25/2021 1 1 Encounter Details Date Type Department Care Team (Late st Contact Info) Description 10/26/2020 Orders Only [facility] Hematology [address] [place] [address] 7th [address] [place] [id number] Lisa Rudd RN Leukocytosis, unspecified type (Primary Dx) Social History [...] on file 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 Gender Identity Not on file Sexual Orientation Not on file documented as of this encounter Plan of Treatment Scheduled Orders Name Type Priority Associated Diagnoses Orde r Schedule Cytogenetics/Genomic s Lab Routine Leukocytosis, unspecified type Expected: 10/29/2020, Expires: 10/26/2021 documented as of this encounter Results * CBC with auto differential (10/29/2020 1:51 PM CDT) WBC 9.8 3.8 - 9.8 K/cumm [facility] Comment:Testing performed by : [facility], [address] [place] [phone] Hgb 12.8 12.1 - 15.1 g/dL [facility] Comment:Testing performed by : [facility], [address] [place] [phone] Hct 38.8 36.1 - 44.3 % [facility] Comment:Testing performed by : [facility], [address] [place] [phone] Plt 290 140 - 440 K/cumm [facility] Comment:Testing performed by : [facility], [address] [place] [phone] MPV 7.4 6.8 - 10.4 fL [facility] Comment:Testing performed by : [facility], [address] [place] [address] RBC 4.32 3.90 - 5.00 M/cumm [facility] Comment:Testing performed by : [facility], [address] [place], [place] [phone] MCV 89.7 80.0 - 97.6 fL [facility] Comment:Testing performed by : [facility], [address] [place] [phone] MCH 29.6 26.7 - 33.7 pg [facility] Comment:Testing performed by : [facility], [address] [place], [place] [phone] MCHC 32.9 32.7 - 35.5 g/dL [facility] Comment:Testing performed by : [facility], [address] [place], [place] [phone] RDW CV 14.2 11.8 - 14.6 % [facility] Comment:Testing performed by : [facility], [address] [place] [phone] NRBC abs 0.00 0.00 - 0.01 K/cumm [facility] Comment:Testing performed by : [facility], [address] [place] [phone] Blood specimen (specimen) 10/29/2020 1:51 PM CDT 10/29/2020 2:03 PM CDT Heaven Carrillo MD LAB BLOOD ORDERABLES Final R esult [facility] Department [place] [address] documented in this encounter Visit Diagnoses Diagnosis Leukocytosis, unspecified type- Primary documented in this encounter Care Teams Nurseryman Assistant Relationship Specialty Start Date End Date Justen Gale MD [address] [address] PCP - General 10/09/17 Liu Jerez MD Consulting Physician Gastroenterology 07/28/17 [place] [address] [facility] [address] [place] [address] Consulting Physician Pulmonary Disease 08/03/17 Khris Arthur MD [address] [facility] [address] [place] [address] Medical Oncologist/Protein Scientist Medical Oncology 10/23/17 [place] [address] [facility] [address] [place] [address] Surgeon Orthopedic Surgery 10/23/17 [place] [address] [facility] [address] [place] [address] Consulting Physician Pain Management 10/23/17 [place] [address] [facility] [address] [place] [address] Referring Physician General Surgery 01/26/18 [place] [address] [facility] [address] [place] [address] Consulting Physician Neurology 01/26/18 documented as of this encounter
--- OUTSIDE RECORDS SUMMARY | 2024-04-26 04:23 | XMS_ITS | Encounter Summary ---
Author Organization [facility] Address [address] [place] [address] Phone Care Team Providers Care Rotary Filter Operator Name Role Phone Liu Jerez MD Unavailable [phone] Albert Corbin MD Unavailable Justen Gale MD Primary Care Provider Khris Arthur MD Unavailable [phone] Ko Melendez MD Unavailable [phone] John Paul Moyer MD Unavailable Annel Rod MD Unavailable Anali MARSHALL MD, Carlos M. Unavailable Encounter Details Date Type Department Care Team (Late st Contact Info) Description 09/08/2020 Telephone [facility] Hematology [address] [facility] 7th [place] [address] [place] [address] Lisa Rudd, RN Social History Tobacco Use Types Packs/Day Years Used Date Smoking Tobacco: Former Smokeless Tobacco: Never Comments:remote tobacco use Alcohol Use Standard Drinks/Week Comments No 0 (1 standard drink = 0.6 oz pur e alcohol) PHQ-2 Answer Date Recorded PHQ-2 Score 1 12/15/2018 Comments No Sex and Gender Information Value Date Recorded Sex Assigned at Not on file 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 Asked that we cancel appt. today and they will call back to reschedule. Please cancel consult/lab, thanks. documented in this encounter Plan of Treatment Not on file documented as of this encounter Visit Diagnoses Not on filedocumented in this encounter Care Teams Rotary Filter Operator Relationship Specialty Start Date End Date Justen Gale MD 2 [facility] [address] [place] [address] PCP - General 10/09/17 Liu Jerez MD Consulting Physician Gastroenterology 07/28/17 [place] [address] [facility][1] [address] [place] [address] Consulting Physician Pulmonary Disease 08/03/17 [place] [address] [place] [address] [address] [place] [address] Medical Oncologist/Technical Writer Medical Oncology 10/23/17 [place] [address] [place] [address] [address] Surgeon Orthopedic Surgery 10/23/17 [place] [address] [address] Consulting Physician Pain Management 10/23/17 [place] [address] [address] Referring Physician General Surgery 01/26/18 [place] [address] [address] [facility] [address] [place] [address] Consulting Physician Neurology 01/26/18 documented as of this encounter
--- OUTSIDE RECORDS SUMMARY | 2024-04-26 04:23 | XMS_ITS | Encounter Summary ---
Author Organization [facility] Address [address] [place] [address] Phone Care Team Providers Care Coo & Co Founder Name Role Phone Liu Jerez MD Unavailable [phone] Albert Corbin MD Unavailable [phone] Justen Gale MD Primary Care Provider Khris Arthur MD Unavailable [phone] Ko Melendez MD Unavailable John Paul Moyer MD Unavailable Annel Rod MD Unavailable Anali MARSHALL MD, Carlos M. Unavailable Encounter Details Date Type Department Care Team (Late st Contact Info) Description 03/13/2020 [address]phone [facility] Oncology [address] 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 Called her back and left voicemail to offer telehealth visit. Will await call back. ESSOR OF GERMAN documented in this encounter Plan of Treatment Not on file documented as of this encounter Visit Diagnoses Not on filedocumented in this encounter Care Teams Coo & Co Founder Relationship Specialty Start Date End Date Justen Gale MD [address] [address] PCP - General 10/09/17 Liu Jerez MD Consulting Physician Gastroenterology 07/28/17 [place] [address] [facility] [address] [place] [address] Consulting Physician Pulmonary Disease 08/03/17 Khris Arthur MD 49[address] [facility] [address] [place] [address] Medical Oncologist/Residential Caregiver Medical Oncology 10/23/17 [place] [address] [facility] [address] [place] [address] Surgeon Orthopedic Surgery 10/23/17 [place] [address] [address] Consulting Physician Pain Management 10/23/17 [place] [address] [address] Referring Physician General Surgery 01/26/18 [place] [address] [facility] [address] [place] [address] Consulting Physician Neurology 01/26/18 documented as of this encounter
--- OUTSIDE RECORDS SUMMARY | 2024-04-26 04:24 | XMS_ITS | Encounter Summary ---
Author Organization [facility] Address [address] [place] [address] Phone Care Team Providers Care Air Shovel Operator Name Role Phone Liu Jerez MD Unavailable Albert Corbin MD Unavailable Justen Gale MD Primary Care Provider Khris Arthur MD Unavailable [phone] Ko Melendez MD Unavailable [phone] John Paul Moyer MD Unavailable Annel Rod MD Unavailable Anali MARSHALL MD, Carlos M. 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 Dexa was reschd 02/17/20 and Rov to 02/18/20. She verbalized understanding and I mailed itinerary. documented in this encounter Plan of Treatment Not on file documented as of this encounter Visit Diagnoses Not on filedocumented in this encounter Care Teams Air Shovel Operator Relationship Specialty Start Date End Date Justen aGle MD [address] [address] PCP - General 10/09/17 Liu Jerez MD Consulting Physician Gastroenterology 07/28/17 [place] [address] [facility] [address] [place] [address] Consulting Physician Pulmonary Disease 08/03/17 Khris Arthur MD 49[address] [facility] [address] [place] [address] Medical Oncologist/Mechanical Engineering Director Medical Oncology 7/2/18 [place] [address] [facility] [address] [place] [address] Surgeon Orthopedic Surgery 10/23/17 [place] [address] [address] Consulting Physician Pain Management 10/23/17 [place] [address] [facility] [address] [place] [address] Referring Physician General Surgery 01/26/18 [place] [address] [facility] [address] [place] [address] Consulting Physician Neurology 01/26/18 documented as of this encounter
--- OUTSIDE RECORDS SUMMARY | 2024-04-26 04:24 | XMS_ITS | Encounter Summary ---
Author Organization [facility] Healthcare Address [address] [place] [address] Care Team Providers Care Curb Worker Name Role Phone Liu Jerez MD Unavailable Albert Corbin MD Unavailable [phone] Justen Gale MD Primary Care Provider [phone] Khris Arthur MD Unavailable [phone] Ko Melendez MD Unavailable John Paul Moyer MD Unavailable nAnel Rod MD Unavailable Anali MARSHALL MD, Carlos M. Unavailable Encounter Details Date Type Department Care Team (Latest Contact Info) Description 10/04/2018 1:32 AM CDT - 10/04/2018 1:48 AM CDT Hospital Encounter [facility] [address] [place] [address] Justen Langford MD [address] [facility] [address] [place] [address] Discharge Disposition: Discharge to home or self care Social History Tobacco Use Types Packs/Day Years Used Date Smoking Tobacco: Former Smokeless Tobacco: Never Comments:remote tobacco use Alcohol Use Standard Drinks/Week Comments No 0 (1 standard drink = 0.6 oz pur e alcohol) Comments No Sex and Gender Information Value Date Recorded Sex Assigned at Not on file 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 30 tablet 01/26/2018 1 clonazePAM (KlonoPIN) 1 mg tablet Take 1 tablet (1 mg total) by mouth 2 (two) times a day for 10 days . 20 tablet 06/27/2018 2 diazePAM (VALIUM) 5 mg tablet Take 1 tablet (5 mg total) by mouth every 8 (eight) hours as needed for anxiety. 10 tablet 03/17/2018 1 diphenhydrAMINE (diphenhydrAMINE) 25 mg capsule Take 1 tablet/capsule (25 mg total) by mouth every 6 (six) hours as needed for itching . 20 capsule 06/27/2018 1 exemestane (AROMASIN) 25 mg tabletIndications :Other pulmonary embolism without acute cor pulmonale, unspecified chronicity (HCC),Malignant neoplasm of upper-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, unspecified estrogen receptor status (HCC),Malignant neoplasm of overlapping sites of left female breast, unspecified estrogen receptor status (HCC),Malignant neoplasm of female breast, unspecified estrogen receptor status, unspecified laterality, unspecified site of breast (HCC) Take 1 tablet (25 mg total) by mouth daily. After a meal 90 tablet 3 04/27/2018 0 gabapentin (NEURONTIN) 300 mg capsule Take 300 mg by mouth 3 times daily 02/27/2018 1 HYDROcodone-aceta minophen (NORCO) 5-325 mg per tabletIndications :Pain Take by mouth. 01/01/2018 2 hydrOXYzine (ATARAX) 25 mg tabletIndications :anxiety Take 1 tablet (25 mg total) by mouth 4 (four) times a day as needed for itching or anxiety (TONGUE SWELLING) Indications: anxious. 20 tablet 06/28/2018 1 insulin glargine (LANTUS) 100 unit/mL injection Inject 40 Units under the skin daily. Takes in the morning 01/26/2018 4 insulin lispro (HumaLOG) 100 unit/mL injection Inject 12 Units under the skin 3 (three) times a day before meals. 01/26/2018 4 lancets (ONETOUCH DELICA LANCETS) 33 gauge misc by Not Applicable route 4 times daily 01/19/2018 1 lisinopril (PRINIVIL,ZESTRIL ) 20 mg tablet Take 20 mg by mouth. 05/11/2012 2 nitrofurantoin monohydrate (MACROBID) 100 mg capsule Take 1 capsule (100 mg total) by mouth 2 (two) times a day. 10 capsule 02/24/2018 1 omeprazole (PriLOSEC) 40 mg capsule Take 40 mg by mouth daily 09/07/2018 1 ondansetron (ZOFRAN) 4 mg tablet Take 1 tablet (4 mg total) by mouth every 6 (six) hours as needed for nausea or vomiting 30 tablet 10/04/2018 1 oxybutynin (DITROPAN) 5 mg tablet take 1 tablet by oral route every day 0 0 12/12/2013 3 oxyCODONE-acetami nophen (PERCOCET) 5-325 mg per tabletIndications :Pain Take 1 tablet by mouth every 6 (six) hours as needed for pain. 6 tablet 03/17/2018 1 polyethylene glycol (MIRALAX) 17 gram/dose powder Mix 1 scoop (17 g) in 8 oz of water and drink daily. 527 g 08/15/2017 1 rivaroxaban (XARELTO) 20 mg tabletIndications :Other pulmonary embolism without acute cor pulmonale, unspecified chronicity (HCC),Malignant neoplasm of upper-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, unspecified estrogen receptor status (HCC),Malignant neoplasm of overlapping sites of left female breast, unspecified estrogen receptor status (HCC),Malignant neoplasm of female breast, unspecified estrogen receptor status, unspecified laterality, unspecified site of breast (HCC) Take 1 tablet (20 mg total) by mouth daily 30 tablet 08/08/2018 1 rivaroxaban (XARELTO) 20 mg tabletIndications :Other pulmonary embolism without acute cor pulmonale, unspecified chronicity (HCC),Malignant neoplasm of upper-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, unspecified estrogen receptor status (HCC),Malignant neoplasm of overlapping sites of left female breast, unspecified estrogen receptor status (HCC),Malignant neoplasm of female breast, unspecified estrogen receptor status, unspecified laterality, unspecified site of breast (HCC) Take 1 tablet (20 mg total) by mouth daily After Dinner 30 tablet 6 09/19/2018 9 sitaGLIPtin-metfo rmin (JANUMET) 50-1,000 mg per tablet Take 1 tablet by mouth 1 TRUEPLUS PEN NEEDLE 31 gauge x 5/16 needle 05/28/2018 1 documented as of this encounter Discharge Disposition Disposition Code Departure Means Destination Discharge to home or self care documented in this encounter Plan of Treatment Not on file documented as of this encounter Procedures Procedure Name Priority Date/Time Associated Diagnosis Comments XR CHEST PA LATERAL 2 VIEWS ED 10/04/2018 1:35 AM CDT documented in this encounter Results * XR Chest Pa Lateral 2 Vw (10/04/2018 1:35 AM CDT) Anatomical Region Laterality Modality Body, Chest N/A Computed Radiogr aphy 10/04/2018 2:10 AM CDT Impressions 10/04/2018 4:05 PM CDT PA and lateral chest radiograph is compared to 06/27/2018 Lung volumes are small. ??There is no focal pulmonary consolidation. No pleural effusion or pulmonary edema. ??There is no pneumothorax. Heart size and cardiomediastinal contours are normal. ??Right upper quadrant surgical clips are present. Dictated by: Nehemias Herrera M.D. The radiology attending physician has personally reviewed this study, and had reviewed and/or edited this written report and agrees with it. Electronically signed by: Willem Kovacs M.D. Narrative 10/04/2018 4:05 PM CDT EXAMINATION: 2 view chest radiograph HISTORY: 63-year-old woman. ??Shortness of breath. Procedure Note Willem Kovacs MD - 10/04/2018 EXAMINATION: 2 view chest radiograph HISTORY: 63-year-old woman. Shortness of breath. IMPRESSION: PA and lateral chest radiograph is compared to 06/27/2018 Lung volumes are small. There is no focal pulmonary consolidation. No pleural effusion or pulmonary edema. There is no pneumothorax. Heart size and cardiomediastinal contours are normal. Right upper quadrant surgical clips are present. Dictated by: Nehemias Herrera M.D. The radiology attending physician has personally reviewed this study, and had reviewed and/or edited this written report and agrees with it. Electronically signed by: Willem Kovacs M.D. [facility] IMG XR PROCEDURES Final Re sult documented in this encounter Visit Diagnoses Not on filedocumented in this encounter Care Teams Curb Worker Relationship Specialty Start Date End Date Justen Gale MD [address] [address] PCP - General 10/09/17 Liu Jerez MD Consulting Physician Gastroenterology 07/28/17 [place] [address] [facility] [address] [place] [address] Consulting Physician Pulmonary Disease 08/03/17 Khris Arthur MD [address] [facility] [address] [place] [address] Medical Oncologist/Rn Practitioner Medical Oncology 10/23/17 [place] [address] [address] [facility] [address] [place] [address] Surgeon Orthopedic Surgery 10/23/17 [place] [address] [address] [facility] [address] [place] [address] Consulting Physician Pain Management 10/23/17 [place] [address] [address] [facility] [address] [place] [address] Referring Physician General Surgery 01/26/18 [place] [address] [address] [facility] [address] [place] [address] Consulting Physician Neurology 01/26/18 documented as of this encounter
--- OUTSIDE RECORDS SUMMARY | 2024-04-26 04:24 | XMS_ITS | Encounter Summary ---
Author Organization [facility] Address [address] [place] [address] Phone Care Team Providers Care Fiberglass Product Tester Name Role Phone Liu Jerez MD Unavailable Albert Corbin MD Unavailable Justen Gale MD Primary Care Provider Khris Arthur MD Unavailable [phone] Ko Melenedz MD Unavailable [phone] John Paul Moyer MD Unavailable [phone] Annel Rod MD Unavailable Anali MARSHALL MD, Carlos M. Unavailable [phone] Encounter Details Date Type Department Care Team (Late st Contact Info) Description 04/15/2019 Orders Only [facility] Oncology [address] 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 Gender Identity Not on file Sexual Orientation Not on file documented as of this encounter Plan of Treatment Not on file documented as of this encounter Visit Diagnoses Not on filedocumented in this encounter Care Teams Fiberglass Product Tester Relationship Specialty Start Date End Date Justen Gale MD [address] [address] PCP - General 10/09/17 Liu Jerez MD Consulting Physician Gastroenterology 07/28/17 [place] [address] [id number] [place], [place] [id number] Consulting Physician Pulmonary Disease 08/03/17 Khris Arthur MD [address] [facility] [address] [place] [address] Medical Oncologist/Digital Marketing Program Manager Medical Oncology 10/23/17 [place] [address] [facility] [address] [place] [address] Surgeon Orthopedic Surgery 10/23/17 [place] [address] [facility] [facility] [address] [place] [address] Consulting Physician Pain Management 10/23/17 [place] [address] [facility] [address] [place] [address] Referring Physician General Surgery 01/26/18 [place] [address] [facility] [address] [place] [address] Consulting Physician Neurology 01/26/18 documented as of this encounter
--- OUTSIDE RECORDS SUMMARY | 2024-04-26 04:24 | XMS_ITS | Encounter Summary ---
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 Unavailable Reason for Visit * Reason Comments Fatigue Shortness of Breath Encounter Details Date Type Department Care Team (Late st Contact Info) Description 10/04/2018 1:49 AM CDT - 10/04/2018 5:[address] [facility] Emergency Department [address] [place] [address] Kylee Gayle MD [address] [place] [address] Shortness of breath (Primary Dx); Lower abdominal pain Discharge Disposition: Discharge to [...] on file Legal Sex Female 12:24 AM [employer] Gender Identity Not on file Sexual Orientation Not on file documented as of this encounter Last Filed Vital Signs Vital Sign Reading Time Taken Comments Blood Pressure 113/56 10/04/2018 5:10 AM CDT Pulse 85 10/04/2018 5:10 AM CDT Temperature 37.6 ??C (99.7 ??F) 10/03/2018 11:13 PM C DT Respiratory Rate 18 10/04/2018 5:10 AM CDT Oxygen Saturation 98% 10/04/2018 5:10 AM CDT Inhaled Oxygen Concentration - - Weight 129.3 kg (285 lb) 10/03/2018 11:14 PM CDT Height 154.9 cm (5' 1 ) 10/03/2018 11:14 PM CDT Body Mass Index 53.85 10/03/2018 11:14 PM CDT documented in this encounter Discharge Diagnoses Diagnosis Shortness of breath - SHORTNESS OF BREATH Lower abdominal pain - LOWER ABDOMINAL PAIN, UNSPECIFIED Abdominal pain, other specified site Personal history of malignant neoplasm of breast - PERSONAL HISTORY OF MALIGNANT NEOPLASM OF BREAST Personal history of other venous thrombosis and embolism - PERSONAL HISTORY OF OTHER VENOUS THROMBOSIS AND EMBOLISM Personal history of pulmonary embolism - PERSONAL HISTORY OF PULMONARY EMBOLISM Heart failure (HCC) - HEART FAILURE, UNSPECIFIED Unspecified heart failure Hypertensive heart disease with heart failure ([facility]) ([facility]) - HYPERTENSIVE HEART DISEASE WITH HEART FAILURE Unspecified hypertensive heart disease with heart failure Type 2 diabetes mellitus with hyperglycemia ([facility]) ([facility]) - TYPE 2 DIABETES MELLITUS WITH HYPERGLYCEMIA [facility] current use of insulin ([facility]) ([facility]) - DEPARTMENT DIRECTOR (CURRENT) USE OF INSULIN Restless legs syndrome - RESTLESS LEGS SYNDROME Restless legs syndrome (RLS) Major depressive disorder, single episode - MAJOR DEPRESSIVE DISORDER, SINGLE EPISODE, UNSPECIFIED Major depressive disorder, single episode, unspecified Obesity - OBESITY, UNSPECIFIED Obesity, unspecified documented in this encounter Discharge Instructions * Discharge Instructions* Ilana Sinha MD - 10/04/2018 4:54 AM CDT You were seen in the ER for abdominal pain and shortness of breath. [place], including a CT scan of your abdomen, chest x-ray, EKG (heart tracing), and labs testing your blood counts, electrolytes, liver function, thyroid function, and pancreatic enzymes showed no abnormalities. It remains unclear what could be causing your symptoms. You should follow-up with your primary care doctor on 10/04 as scheduled. You have been given a prescription for zofran (4 mg every 6 hours as needed) for nausea. documented in this encounter Medications at [...] 05/28/2018 1 documented as of this encounter Ordered Prescriptions Prescription Sig Dispense Quantity Refills Last Filled Start Date End Date ondansetron (ZOFRAN) 4 mg tablet Take 1 tablet (4 mg total) by mouth every 6 (six) hours as needed for nausea or vomiting 30 tablet 10/04/2018 1 ondansetron (ZOFRAN) 4 mg tablet Take 1 tablet (4 mg total) by mouth every 6 (six) hours as needed for nausea or vomiting 30 tablet 10/04/2018 9 documented in this encounter Discharge Disposition Disposition Code Departure Means Destination Discharge to home or self care documented in this encounter ED Notes * Ilana Sinha MD - 10/04/2018 2:19 AM CDT HPI Chief Complaint Patient presents with ??? Fatigue ??? Shortness of Breath 63 y/o F with history of breast cancer (in remission s/p resection and radiation), DVT/PE (on xarelto), HTN, T2DM, HLD who presents with multiple complaints, including 1 month of abdominal pain and nausea and 2-3 days of shortness of breath and fatigue. For the past month, patient reports crampy lower abdominal pain, which comes and goes and lasts a few minutes to 1 hour before resolving spontaneously. She describes the pain as similar to, but much more severe than a menstrual cramp. She reports associated intermittent nausea, NBNB vomiting, dizzin ess/lightheadedness, and shakiness which all occur concomitantly about snf through her meals. Denies hypoglycemia during these episodes. Also reports associated BRBPR, though only noticed this while inpatient at an OSH in mid-August. She takes norco for pain, but states this has not touched her abdominal pain, and avoids NSAIDs due to being on xarelto. 2-3 days ago, she developed severe fatigue and shortness of breath with exertion, palpitations, andongoing dizziness/lightheadedness. She reports increased abdominal distention, L>R leg swelling,orthopnea, and PND. Denies chest pain, URI symptoms, cough. Of note, she was admitted to an OSH for evaluation of her abdominal complaints. Per review of care everywhere records, CT a/p at the time showed no radiologic correlate for her symptoms. She underwent EGD, colonoscopy, and small bowel enteroscopy, but these reports are not visible. She was also recently started on a 10 day course of bactrim by her PCP for a UTI, and is mid-way through this. Patient History Patient Active Problem List Diagnosis Date Noted ??? Thyroid nodule 08/07/2018 ??? Dyslipidemia ??? History of breast cancer ??? Other chronic pain ??? CVA (cerebral vascular accident) (CMS/HCC) 01/24/2018 ??? Breast CA (CMS/HCC) 01/24/2018 ??? Anxiety and depression 11/12/2017 ??? Uncontrolled type 2 diabetes mellitus with hyperglycemia, with long-term current use of insulin(CMS/HCC) 11/06/2017 ??? Allergy to drug 11/06/2017 ??? Dysuria 10/26/2017 ??? Acute left-sided low back pain with left-sided sciatica 10/23/2017 ??? Type 2 diabetes mellitus with neurologic complication, without long-term current use of insulin(CMS/HCC) 10/23/2017 ??? Essential hypertension 10/23/2017 ??? Long-term [...] vomiting 07/26/2017 ??? Pulmonary embolism (CMS/HCC) 08/09/2016 Class: Chronic ??? Lymphedema of left upper extremity 08/09/2016 Class: Chronic ??? Pain of foot 01/26/2015 Class: Chronic ??? Arthralgia of ankle 01/26/2015 Class: Chronic ??? Rash 11/11/2014 Class: Chronic ??? Cellulitis of breast 11/11/2014 Class: Chronic ??? Restless legs syndrome 03/12/2013 Class: Chronic ??? Pain of lower extremity 03/12/2013 Class: Chronic Past Medical History: Diagnosis Date ??? Adiposity [...] file Review of Systems Review of Systems All other systems reviewed and are negative. Physical Exam ED Triage Vitals [10/03/18 2313] Temp Pulse Resp BP SpO2 37.6 ??C (99.7 ??F) 92 17 138/79 99 % Temp src Heart Rate Source Patient Position BP Location FiO2 (%) Oral -- -- -- -- Physical Exam Constitutional: She is oriented to person, place, and time. She appears well- developed and well-nourished. Appears mildly uncomfortable, visibly shaking HENT: Head: Normocephalic and atraumatic. Mouth/Throat: Oropharynx is clear and moist. No posterior oropharyngeal edema. Eyes: Pupils are equal, round, and reactive to light. EOM are normal. Neck: Normal range of motion. Neck supple. No JVD present. Cardiovascular: Normal rate and regular rhythm. No murmur heard. Pulmonary/Chest: Effort normal and breath sounds normal. No respiratory distress. Abdominal: Soft. Bowel sounds are normal. She exhibits no distension, no ascites and no mass. Thereis tenderness (in mid lower abdomen). There is no guarding. Musculoskeletal: Normal range of motion. Right lower leg: She exhibits no edema. Left lower leg: She exhibits no edema. Neurological: She is alert and oriented to person, place, and time. Skin: Skin is warm and dry. MDM MDM Number of Diagnoses or Management Options Diagnosis management comments: 63 y/o F with history of breast cancer in remission, DVT/PE (on xarelto), HTN, T2DM, HLD presents with 1 month of abdominal cramping and 2-3 days of exertional dyspnea and fatigue. Unclear etiology for both. Abdominal pain may be related to gastroparesis, cystitis, cho lecystitis, cholelithiasis, pancreatitis, diverticulitis; less likely mesenteric ischemia, viscus rupture. Relationship to meals and associated chills, shakiness may be related to post-prandial hypoglycemia as part of dumping syndrome type picture. Shortness of breath may be related to symptomatic anemia (given reports of BRBPR), heart failure, arrhythmia. Less likely PE. Plan: - CBC, BMP, HFP, lipase, NT-proBNP, trop, UA, TSH - EKG - CXR - CT a/p - IV zofran, one time dose morphine Attending Summary of Care No diagnosis found. Ilana Sinha MD Resident 10/05/18 0739 Cosigned by Kylee Gayle MD at 10/05/2018 11:50 AM CDT Associated attestation - Kylee Gayle MD - 10/05/2018 11:50 AM CDT I have seen and examined the patient on 10/03/2018 . I agree with the findings and plan of care as documented in the resident's note. * Kylee Gayle MD - 10/04/2018 1:59 AM CDT HPI Chief Complaint Patient presents with ??? Fatigue ??? Shortness of Breath HPI Patient History Patient Active Problem List Diagnosis Date Noted ??? Thyroid nodule 08/07/2018 ??? Dyslipidemia ??? History of breast cancer ??? Other chronic pain ??? CVA (cerebral vascular accident) ([facility]) 01/24/2018 ??? Breast CA ([facility]) 01/24/2018 ??? Anxiety and depression 11/12/2017 ??? Uncontrolled type 2 diabetes mellitus with hyperglycemia, with long-term current use of insulin([facility]) 11/06/2017 ??? Allergy to drug 11/06/2017 ??? Dysuria 10/26/2017 ??? Acute left-sided low back pain with left-sided sciatica 10/23/2017 ??? Type 2 diabetes mellitus with neurologic complication, without long-term current use of insulin([facility]) 10/23/2017 ??? Essential hypertension 10/23/2017 ??? Long-term [...] vomiting 07/26/2017 ??? Pulmonary embolism (CMS/HCC) 08/09/2016 Class: Chronic ??? Lymphedema of left upper extremity 08/09/2016 Class: Chronic ??? Pain of foot 01/26/2015 Class: Chronic ??? Arthralgia of ankle 01/26/2015 Class: Chronic ??? Rash 11/11/2014 Class: Chronic ??? Cellulitis of breast 11/11/2014 Class: Chronic ??? Restless legs syndrome 03/12/2013 Class: Chronic ??? Pain of lower extremity 03/12/2013 Class: Chronic Past Medical History: Diagnosis Date ??? Adiposity [...] file Review of Systems Review of Systems Physical Exam ED Triage Vitals [10/03/18 2313] Temp Pulse Resp BP SpO2 37.6 ??C (99.7 ??F) 92 17 138/79 99 % Temp src Heart Rate Source Patient Position BP Location FiO2 (%) Oral -- -- -- -- Physical Exam MDM MDM Attending Summary of Care 63 y/o female with h/o Past Medical History: Diagnosis Date ??? Adiposity [...] PE (pulmonary thromboembolism) (CMS/HCC) ??? Sleep apnea P/w fatigue, chills, and lower abdominal pain. Patient states that she has been having bowel issuesfor the past month and received a negative colonoscopy at her OSH. Patient states that she is following up with her PMD tomorrow, but states that tonight she has been incredibly tired and fatigued. Patient also endorses chills and lower abdominal pain in the left side with occasional brbpr. Patient states that her last bloody stool was a week ago and she hasn't really check since then. The patient denies CP/SOB/diarrhea/dysuria/headache/weakness/numbness. Review of Systems CONSTITUTIONAL: +HPI EYES: No eye pain, redness, drainage ENT: No sore throat, rhinorrhea, congestion CARDIOVASCULAR: No chest pain/tightness, orthopnea RESPIRATORY: No cough, dyspnea, wheezing GASTROINTESTINAL: No abdominal pain, nausea, vomiting GENITOURINARY: +HPI MUSCULOSKELETAL: No neck pain, stiffness, back pain INTEGUMENTARY: No rash, itching, hives NEUROLOGIC: No headache, vertigo, or sensory or motor changes. PSYCHIATRIC: No anxiety, depression or alcohol or drug abuse. ENDOCRINE: No polydipsia, polyuria, polyphagia HEMATOLOGIC: No abnormal bleeding, history of DVT, or anticoagulant use. IMMUNOLOGIC: No hay fever, allergies, immunocompromised. All other systems negative except as marked. Physical Exam Vital signs reviewed CONSTITUTIONAL: Alert and oriented x3, non-toxic; anxious HEAD: Normocephalic; atraumatic. EYES: Normal eyes; normal conjunctiva. ENT: Normal nose; normal oropharynx. NECK: Neck normal to inspection; supple without meningismus; nontender. RESPIRATORY: Lungs are clear and equal to auscultation bilaterally. CARDIAC: Heart regular rate and rhythm; no murmurs/gallops/rubs heard. ABDOMEN: abdomen soft, slightly tender in the LLQ BACK: Normal to inspection SKIN: Skin is warm and dry; no rashes. EXTREMITIES: All 4 extremities without edema. PSYCHIATRIC: Affect normal. Mood and behavior appropriate. NEUROLOGICAL: Nonfocal neurologic exam grossly. Moving all 4 extremities equally. Differential includes UTI, mets, diverticulitis, pyelo, acs, angina, arrhythmia (Moderate probability) PLAN: 1. CBC to check wbc 2. Bmp to check kidney function 3. HFP/Lipase 4. UA to r/o uti 5. BNP, CXR, EKG, trop, consider CT a/p with contrast 6. IVF 7. IV 8. Pain control 9. Symptom control 10. Likely dispo pending workup Concern for higher etiology MODERATE given patient's clinical exam and history. Patient appears clinically stable without acute signs of distress or trauma. Will r/o any other pathology given patient's complicated medical history. Patient has been in remission, but symptoms are nonspecific and differential remains large. Will attempt to narrow differential with workup and reeval for dispo. I have reviewed the patient???s previous records which revealed Karly Marques is a 63 y.o. female with stage II, ER positive, HER2 negative breast cancer on adjuvant exemestane. After discussion with Dr. Arthur, she will continue on exemestane, she will tryvitamin E for her hot flashes, and she will discuss her new headaches with her PCP. She did have a brain MRI done last January which did not show any abnormalities. She sees her PCP later this month. I told her to try the vitamin E for a month or two, but if the hot flashes worsen or become intolerable, she can call us and perhaps we can trial venlafexine. We will plan to see her back in clinic for ongoing follow up in six months. The case was discussed with: Patient re: plan of care I have seen and examined the patient on 10/03/2018 . I agree with the findings and plan of care as documented in the resident's note. Shortness of breath Lower abdominal pain Kylee Gayle MD 10/04/18 0603 * Osiel Soto, NURIS - 10/04/2018 1:49 AM CDT Bed: [facility] Expected date: Expected time: Means of arrival: Car Comments: Osiel Soto RN 10/04/18 0149 * Angelica Tobar RN - 10/03/2018 11:15 PM CDT Patient with generalized fatigue with SOB over the past month. Patient has been in remission from breast cancer for 4 years. Patient also has lower abd pain as well with nausea. Denies cough but endorsing chills throughout tonight. Poor PO intake as well. CLAY for just a couple steps, lung sounds diminished bilaterally. Slight edema to lower extremities documented in this encounter Miscellaneous Notes * ED Procedure Note - Justen Langford MD - 10/03/2018 11:46 PM CDT Associated Order(s): ECG 12 lead Procedure ECG 12 lead Date/Time: 10/03/2018 11:46 PM Performed by: Justen Langford MD Authorized by: Justen Langford MD Rate: ECG rate: 86 ECG rate assessment: normal Rhythm: Rhythm: sinus rhythm Ectopy: Ectopy: none QRS: QRS axis: Normal QRS intervals: Normal Conduction: Conduction: normal ST segments: ST segments: Normal T waves: T waves: normal Previous ECG: Previous ECG: Compared to current Date of previous EC03/17/2018 Similarity: No change Interpretation: Interpretation: normal Recommended Follow-up: Recommended follow up: further workup in the ED Justen Langford MD 10/03/18 1128 documented in this encounter Plan of Treatment Not on file documented as of this encounter Procedures Procedure Name Priority Date/Time Associated Diagnosis Comments POCT GLUCOSE DEVICE Routine 10/04/2018 5 :[address] ABDOMEN PELVIS W CONTRAST ED 10/04/2018 3:03 AM CDT URINALYSIS AND REFLEX TO MICROSCOPIC AND CULTURE STAT 10/04/2018 2:46 AM CDT URINALYSIS, MICROSCOPIC ONLY STAT 10/04/2018 2:46 AM CDT URINE CULTURE STAT 10/04/2018 2:46 AM CDT LIPASE STAT 10/04/2018 2:25 AM CDT HEPATIC FUNCTION PANEL STAT 10/04/2018 2:25 AM CDT XR CHEST PA LATERAL 2 VIEWS ED 10/04/2018 1:35 AM CDT DIFFERENTIAL AUTO STAT 10/04/2018 12: 58 AM CDT PRO B-TYPE NATRIURETIC PEPTIDE STAT 10/04/2018 12:58 AM CDT THYROID FUNCTION CASCADE STAT 10/04/2018 12:58 AM CDT CBC WITH AUTO DIFFERENTIAL STAT 10/04/2018 12:58 AM CDT TROPONIN I STAT 10/04/2018 12:58 AM CDT BASIC METABOLIC PANEL STAT 10/04/2018 12:58 AM CDT ECG 12-LEAD STAT 10/03/2018 11:46 PM CDT POCT GLUCOSE DEVICE Routine 10/03/2018 1 1:25 PM CDT documented in this encounter Results * POCT glucose (10/04/2018 5:20 AM CDT) Glucose, POC 162 70 - 199 mg/dL [facility] Glucose comment 1 RN Notified [facility] Blood specimen (specimen) 10/04/2018 5:20 AM CDT 10/04/2018 5:20 AM CDT Narrative [facility] - 10/04/2018 5:22 AM CDT us Notinfile Unknown LAB POCT ORDERABLES - DEVICE F inal Result [facility] [place] [address] * CT Abdomen Pelvis W Contrast (10/04/2018 3:03 AM CDT) Anatomical Region Laterality Modality Body N/A Computed Tomogra phy 10/04/2018 4:20 AM CDT Impressions 10/04/2018 4:08 PM CDT 1. ??No CT explanation for the patient's abdominal pain. Dictated by: Nehemias Herrera M.D. The radiology attending physician has personally reviewed this study, and had reviewed and/or edited this written report and agrees with it. Electronically signed by: Willem Kovacs M.D. Narrative 10/04/2018 4:08 PM CDT EXAMINATION: ??Computed tomography of the abdomen and pelvis with intravenous contrast HISTORY: 63-year-old female. ??Abdominal pain. TECHNIQUE: ??Transaxial computed tomographic images of the abdomen and pelvis were obtained with intravenous contrast according to the standard protocol after the uneventful administration of 100 mL Opti-Ray 350 intravenous contrast. COMPARISON: CT PE + abdomen pelvis 11/12/2017 FINDINGS: There is minimal atelectasis within the bilateral lung bases. ??No pleural effusion or pneumothorax is identified. ??There are no suspicious pulmonary nodules within the lung bases. ??Heart size is normal. ??Mitral annular calcifications are noted. ??There is no pericardial effusion. The liver appears steatotic. ??A hypoattenuating segment 5 liver lesion is unchanged likely representing a hepatic cyst. ??No other focal liver lesions are identified. ??The gallbladder surgically absent. ??There is mild biliary ductal ectasia. ??The pancreas, spleen, and both adrenal glands are normal. ??The kidneys enhance normally without hydronephrosis. ??No obstructing renal calculi identified. Urinary bladder is partially decompressed. ??Uterus is retroverted. No adnexal masses are present. ??There is no pelvic free fluid. There is no bowel wall thickening or evidence of obstruction. Colonic diverticula are present without evidence of acute diverticulitis. ??High attenuation material is seen within scattered colonic diverticula may represent calcifications. ??The appendix is visualized and appears normal. ??There is no intra-abdominal free gas. There is no abdominal, pelvic, or retroperitoneal lymphadenopathy. There are postsurgical changes of anterior abdominal wall hernia repair without evidence of recurrent hernia. The abdominal aorta is non-aneurysmal. ??The portal and superior mesenteric veins are patent. No destructive osseous lesions are seen on bone windows. ??There is multilevel degenerative disc disease throughout the thoracolumbar spine. ??Sclerotic appearance of the bilateral sacroiliac joints predominantly within the iliac bones is suggestive of osteitis condensans ilii. ??There is a similar sclerotic appearance at the pubic symphysis. Procedure Note Willem Kovacs MD - 10/04/2018 EXAMINATION: Computed tomography of the abdomen and pelvis with intravenous contrast HISTORY: 63-year-old female. Abdominal pain. TECHNIQUE: Transaxial computed tomographic images of the abdomen and pelvis were obtained with intravenous contrast according to the standard protocol after the uneventful administration of 100 mL Opti-Ray 350 intravenous contrast. COMPARISON: CT PE + abdomen pelvis 11/12/2017 FINDINGS: There is minimal atelectasis within the bilateral lung bases. No pleural effusion or pneumothorax is identified. There are no suspicious pulmonary nodules within the lung bases. Heart size is normal. Mitral annular calcifications are noted. There is no pericardial effusion. The liver appears steatotic. A hypoattenuating segment 5 liver lesion is unchanged likely representing a hepatic cyst. No other focal liver lesions are identified. The gallbladder surgically absent. There is mild biliary ductal ectasia. The pancreas, spleen, and both adrenal glands are normal. The kidneys enhance normally without hydronephrosis. No obstructing renal calculi identified. Urinary bladder is partially decompressed. Uterus is retroverted. No adnexal masses are present. There is no pelvic free fluid. There is no bowel wall thickening or evidence of obstruction. Colonic diverticula are present without evidence of acute diverticulitis. High attenuation material is seen within scattered colonic diverticula may represent calcifications. The appendix is visualized and appears normal. There is no intra-abdominal free gas. There is no abdominal, pelvic, or retroperitoneal lymphadenopathy. There are postsurgical changes of anterior abdominal wall hernia repair without evidence of recurrent hernia. The abdominal aorta is non-aneurysmal. The portal and superior mesenteric veins are patent. No destructive osseous lesions are seen on bone windows. There is multilevel degenerative disc disease throughout the thoracolumbar spine. Sclerotic appearance of the bilateral sacroiliac joints predominantly within the iliac bones is suggestive of osteitis condensans ilii. There is a similar sclerotic appearance at the pubic symphysis. IMPRESSION: 1. No CT explanation for the patient's abdominal pain. Dictated by: Nehemias Herrera M.D. The radiology attending physician has personally reviewed this study, and had reviewed and/or edited this written report and agrees with it. Electronically signed by: Willem Kovacs M.D. Ilana Sinha MD IMG CT PROCEDURES Final R esult * Urine culture Urine (10/04/2018 2:46 AM CDT) Report Final Report: Less than 100,000 colonies/mL (clinically insignificant growth based on current clinical standards) [facility] Organism ([facility] Urine 10/04/2018 2:46 AM CDT 10/04/2018 6:48 AM CDT Narrative [facility] - 10/05/2018 9:04 AM CDT Urine culture reflexed based upon urinalysis results. Testing performed by [facility] ([phone]) us Kylee Gayle MD LAB MICROBIOLOGY - GENERAL ORDERABLES Final Result Performing Organization Address [facility] [facility] Co de Phone Number [facility] [place] [address] * (ABNORMAL) Urinalysis, microscopic only (10/04/2018 2:46 AM CDT) WBC, ur 11-20(A) 0 - 5 /HPF [facility] RBC, ur 6-10(A) 0 - 2 /HPF [facility] Epithelial cells, squamous, ur 1-5 0 - 5 /HPF [facility] Mucous, ur Present(A) [facility] Urine 10/04/2018 2:46 AM CDT 10/04/2018 2:52 AM CDT Narrative [facility] - 10/04/2018 3:11 AM CDT Kylee Gayle MD LAB URINE ORDERABLES Final Result Performing Organization Address [facility] Co de Phone Number [facility] [place] [address] * (ABNORMAL) Urinalysis reflex to microscopic and culture Urine (10/04/2018 2:46 AM CDT) Color, ur Yellow Yellow [facility] Clarity, ur Clear Clear [facility] Specific gravity, ur 1.021 1.010 - 1.025 [facility] pH, urine 7 [facility] Protein, ur ql Negative Negative [facility] Glucose, ur ql Negative Negative [facility] Ketones, ur Negative Negative [facility] Bilirubin, ur Negative Negative [facility] Blood, ur 1+(A) Negative [facility] Urobilinogen, ur <2.0 <2.0 mg/dL [facility] Nitrite, ur Negative Negative [facility] Leukocyte esterase, ur 1+(A) Negative [facility] Urine 10/04/2018 2:46 AM CDT 10/04/2018 2:52 AM CDT Narrative [facility] - 10/04/2018 3:00 AM CDT THE COLLECTION LOCATION IS [address] Urine pH is affected by diet, medications, systemic acid-base disturbances, and renal tubular function. ??pH may affect urinary stone formation. ??For example, urine pH below 6.0 may help reduce the tendency for calcium phosphate stones and pH greater than 6.0 may reduce the tendency for uric acid stone formation. Source: [facility]. Last revised 05-04-2017 Kylee Gayle MD LAB MICROBIOLOGY - GENERAL ORDERABLES Final Result Performing Organization Address [facility] de Phone Number [facility] [place] [address] * Lipase (10/04/2018 2:25 AM CDT) Pathologist [facility] Lipase 34 10 - 99 Units/L [facility] Blood specimen (specimen) 10/04/2018 2:25 AM CDT 10/04/2018 2:32 AM CDT Narrative [facility] - 10/04/2018 3:00 AM CDT THE COLLECTION LOCATION IS [address] Kylee Gayle MD LAB BLOOD ORDERABLES Final Result Performing Organization Address [facility] de Phone Number [facility] [place] [address] * Hepatic function panel (10/04/2018 2:25 AM CDT) Bilirubin, total 0.3 0.1 - 1.2 mg/dL [facility] Bilirubin, direct <0.2 0.1 - 0.3 mg/dL [facility] Protein, pl 8.0 6.5 - 8.5 g/dL [facility] Albumin 3.8 3.5 - 5.0 g/dL [facility] Alk phos 86 40 - 130 Units/L [facility] ALT 22 7 - 45 Units/L [facility] AST 21 10 - 45 Units/L [facility] Blood specimen (specimen) 10/04/2018 2:25 AM CDT 10/04/2018 2:32 AM CDT Narrative [facility] - 10/04/2018 3:36 AM CDT THE [facility] COLLECTION LOCATION IS [facility] [id number] Kylee Gayle MD LAB BLOOD ORDERABLES Final Result [facility] [place] [address] * XR Chest Pa Lateral 2 Vw [...] it. Electronically signed by: Willem Kovacs M.D. Kylee Gayle MD IMG XR PROCEDURES Final Re sult * TSH reflex to free T4 (10/04/2018 12:58 AM CDT) TSH 1.61 0.30 - 4.20 mcIUnit/mL [facility] Blood specimen (specimen) 10/04/2018 12:58 AM CDT 10/04/2018 1:06 AM CDT Narrative [facility] - 10/04/2018 2:53 AM CDT us Notinfile Unknown LAB BLOOD ORDERABLES Final Res ult [facility] [place] [address] * Pro B-type natriuretic peptide (10/04/2018 12:58 AM CDT) NT-proBNP <50 <=300 pg/mL [facility] Comment: Interpretive Comments: A. Dyspnea in Acute Care Setting All Ages: ??< 300 pg/ml, acute heart failure unlikely < 50 yrs: ??> or = 300 pg/ml and < or = 450 pg/ml, further investigation warranted ??> 450 pg/ml, acute heart failure likely 50 - 74 yrs > or = 300 pg/ml and < or = 900 pg/ml, further investigation warranted ??> 900 pg/ml, acute heart failure likely > or = 75 yrs 450 - 1800 pg/ml, further investigation warranted ??> 1800 pg/ml, acute heart failure likely B. Non-acute Setting < 75 yrs ??< 125 pg/ml, rules out heart failure ??> or = 125 pg/ml, further investigation warranted > or = 75 yrs < 450 pg/ml, rules out heart failure ??> or = 450 pg/ml, further investigation warranted Knowledge of each individual patient's NT-proBNP range may be more useful than using similar cut-points for every patient. Please note that marked elevations in NT-proBNP levels may be observed in state other than Left Ventricular Congestive Failure, including: acute coronary syndromes, right heart strain/failure (including pulmonary embolism and cor pulmonale), critial illness, renal failure, as well as advanced age. References: 1. Giig LIANG et.al. Eur Heart J. 2006:27:330-337. 2. Tracy RW, Duyen BEE. J. AM Wang Cardiol: Cardiovasc Imag. 2009;2: 216- 225. Interpretive Data Last Revised Date: 2017. Blood specimen (specimen) 10/04/2018 12:58 AM CDT 10/04/2018 1:06 AM CDT Narrative [facility] - 10/04/2018 2:53 AM CDT us Notinfile Unknown LAB BLOOD ORDERABLES Final Res ult [facility] [place] [address] * (ABNORMAL) Differential, auto (10/04/2018 12:58 AM CDT) Neutrophil abs 7.0(H) 1.7 - 6.5 K/cumm [facility] Imm gran abs 0.1 0.0 - 0.1 K/cumm [facility] Lymphocyte abs 2.7 0.8 - 3.3 K/cumm [facility] Monocyte abs 0.8 0.2 - 0.8 K/cumm [facility] Eosinophil abs 0.3 0.0 - 0.5 K/cumm [facility] Basophil abs 0.0 0.0 - 0.1 K/cumm [facility] Neutrophil pct 63.6 % [facility] Comment: Interpretive Data Percent cell count reference ranges are not reported, since discordance with absolute values may lead to misinterpretation of CBC data. Current Interpretive Data was last revised on 2017. Imm gran pct 0.7 % [facility] Comment: Interpretive Data Percent cell count reference ranges are not reported, since discordance with absolute values may lead to misinterpretation of CBC data. Current Interpretive Data was last revised on 2017. Lymphocyte pct 24.8 % [facility] Comment: Interpretive Data Percent cell count reference ranges are not reported, since discordance with absolute values may lead to misinterpretation of CBC data. Current Interpretive Data was last revised on 2017. Monocyte pct 7.7 % [facility] Comment: Interpretive Data Percent cell count reference ranges are not reported, since discordance with absolute values may lead to misinterpretation of CBC data. Current Interpretive Data was last revised on 2017. Eosinophil pct 2.9 % [facility] Comment: Interpretive Data Percent cell count reference ranges are not reported, since discordance with absolute values may lead to misinterpretation of CBC data. Current Interpretive Data was last revised on 2017. Basophil pct 0.3 % [facility] Comment: Interpretive Data Percent cell count reference ranges are not reported, since discordance with absolute values may lead to misinterpretation of CBC data. Current Interpretive Data was last revised on 2017. Blood specimen (specimen) 10/04/2018 12:58 AM CDT 10/04/2018 1:06 AM CDT Narrative [facility] - 10/04/2018 1:12 AM CDT Kylee Gayle MD LAB BLOOD ORDERABLES Final Result [facility] [place] [address] * Troponin I (10/04/2018 12:58 AM CDT) Troponin I <0.03 0.00 - 0.03 ng/mL [facility] Comment: Interpretive Data: Normal plasma Troponin I [...] for Troponin assay. References: 1. Clin Chem 2013;59:9453-1911 2. Journal of the [place] [employer] Cardiology 2012;60:1581-98 Current Interpretive Data Last Revised Date: 2017. Blood specimen (specimen) 10/04/2018 12:58 AM CDT 10/04/2018 1:06 AM CDT Narrative [facility] - 10/04/2018 1:47 AM CDT THE COLLECTION LOCATION IS Kylee Gayle MD LAB BLOOD ORDERABLES Edite d Result - Final [facility] [place] [address] * (ABNORMAL) Basic metabolic panel (10/04/2018 12:58 AM CDT) Sodium 138 135 - 145 mmol/L [facility] Potassium, pl 4.9 3.3 - 4.9 mmol/L [facility] Comment:Hemolyzed; (++); pot assium value may be falsely elevated by as much as 0.3 - 0.5 mmol/L. Suggest redraw and reanalysis. Chloride 102 97 - 110 mmol/L [facility] CO2 29 22 - 32 mmol/L [facility] Anion gap 7 2 - 15 mmol/L [facility] BUN 16 8 - 25 mg/dL [facility] Creatinine 0.64 0.60 - 1.10 mg/dL [facility] Glucose 218(H) 70 - 199 mg/dL [facility] Comment: Interpretive Data Fasting glucose [...] interpretive data was last revised 2017. Calcium 9.9 8.5 - 10.3 mg/dL [facility] Blood specimen (specimen) 10/04/2018 12:58 AM CDT 10/04/2018 1:06 AM CDT Narrative [facility] - 10/04/2018 1:47 AM CDT THE [facility] COLLECTION LOCATION IS Kylee Gayle MD LAB BLOOD ORDERABLES Final Result [facility] [place] [address] * (ABNORMAL) CBC with auto differential (10/04/2018 12:58 AM CDT) WBC 11.0(H) 3.8 - 9.9 K/cumm [facility] Hgb 12.9 11.9 - 15.5 g/dL [facility] Hct 40.3 35.6 - 45.5 % [facility] Plt 340 150 - 400 K/cumm [facility] MPV 9.7 9.1 - 12.3 fL [facility] RBC 4.54 3.90 - 5.20 M/cumm [facility] MCV 88.8 81.3 - 96.4 fL [facility] MCH 28.4 27.1 - 33.3 pg [facility] MCHC 32.0(L) 32.3 - 35.7 g/dL [facility] RDW CV 14.1 11.1 - 14.9 % [facility] RDW SD 45.7 35.7 - 48.1 fL [facility] NRBC abs 0.00 0.00 - 0.01 K/cumm [facility] Blood specimen (specimen) (Blood, Venous) 10/04/2018 12:58 AM CDT 10/04/2018 1:06 AM CDT Narrative [facility] - 10/04/2018 1:12 AM CDT THE [facility] COLLECTION LOCATION IS Kylee Gayle MD LAB BLOOD ORDERABLES Final Result [facility] [place] [address] * ECG 12-LEAD (10/03/2018 11:46 PM CDT) Narrative [facility] - 10/03/2018 11:46 PM CDT Justen Langford MD ? 10/03/2018 11:47 PM ECG 12 lead Date/Time: 10/03/2018 11:46 PM Performed by: Justen Langford MD Authorized by: Justen Langford MD Rate: ??ECG rate: ??86 ??ECG rate assessment: normal ?? Rhythm: ??Rhythm: sinus rhythm ?? Ectopy: ??Ectopy: none ?? QRS: ??QRS axis: ??Normal ??QRS intervals: ??Normal Conduction: ??Conduction: normal ?? ST segments: ??ST segments: ??Normal T waves: ??T waves: normal ?? Previous ECG: ??Previous ECG: ??Compared to current ??Date of previous ECG: ??03/17/2018 ??Similarity: ??No change Interpretation: ??Interpretation: normal ?? Recommended Follow-up: ??Recommended follow up: further workup in the ED ?? Procedure Note Justen Langford MD - 10/03/2018 11:46 PM CDT Procedure ECG 12 lead Date/Time: 10/03/2018 11:46 PM Performed by: Justen Langford MD Authorized by: Justen Langford MD Rate: ECG rate: 86 ECG rate assessment: normal Rhythm: Rhythm: sinus rhythm Ectopy: Ectopy: none QRS: QRS axis: Normal QRS intervals: Normal Conduction: Conduction: normal ST segments: ST segments: Normal T waves: T waves: normal Previous ECG: Previous ECG: Compared to current Date of previous EC03/17/2018 Similarity: No change Interpretation: Interpretation: normal Recommended Follow-up: Recommended follow up: further workup in the ED Justen Langford MD 10/03/18 [id number] Kylee Gayle MD ECG ORDERABLES Final Resu lt [facility] * POCT glucose (10/03/2018 11:25 PM CDT) Glucose, POC 192 70 - 199 mg/dL [facility] Blood specimen (specimen) 10/03/2018 11:25 PM CDT 10/03/2018 11:25 PM CDT Narrative [facility] - 10/03/2018 11:25 PM CDT us Notinfile Unknown LAB POCT ORDERABLES - DEVICE F inal Result [facility] [place] [address] documented in this encounter Visit Diagnoses Diagnosis Shortness of breath- Primary Lower abdominal pain Abdominal pain, other specified site documented in this encounter Administered Medications Inactive Administered Medications - up to 3 most recent administrations Medication Order MAR Action Action Date Dose Rate Site ioversol (OPTIRAY 350) syringe syringe 100 mL 100 mL, intravenous, Once in imaging, contrast, Starting on Valeri 10/04/18 at 0303, For 1 dose Given 10/04/2018 3:04 AM CDT 100 mL morphine injection 2 mg 2 mg, intravenous, Administer over 4 Minutes, Once, On Valeri 10/04/18 at 0215, For 1 dose Given 10/04/2018 2:21 AM CDT 2 mg ondansetron (ZOFRAN) injection 4 mg 4 mg, intravenous, Administer over 2 Minutes, Once, On Valeri 10/04/18 at 0214, For 1 dose Given 10/04/2018 2:19 AM CDT 4 mg prochlorperazine (COMPAZINE) injection 5 mg 5 mg, intravenous, Administer over 2 Minutes, Once, On Valeri 10/04/18 at 0458, For 1 dose Given 10/04/2018 5:08 AM CDT 5 mg documented in this encounter Discontinued Medications Medication Sig Discontinue Reason Start Date End Da te ondansetron (ZOFRAN) 4 mg tablet Take 1 tablet (4 mg total) by mouth every 6 (six) hours as needed for nausea or vomiting Reorder 10/04/2018 10/04/2018 documented as of this encounter Active and Recently Administered Medications Times are shown in CDT. Scheduled Medication Order 10/02/2018 10/03/2018 10/04/2018 morphine injection 2 mg (COMPLETED) 2 mg, intravenous, Administer over 4 Minutes, Once, On Valeri 10/04/18 at 0215, For 1 dose 0221 (Given - Provid er: Lila Olivares RN - Comment: Stopped @ 0225.) ondansetron (ZOFRAN) injection 4 mg (COMPLETED) 4 mg, intravenous, Administer over 2 Minutes, Once, On Valeri 10/04/18 at 0214, For 1 dose 0219 (Given - Provid er: Lila Olivares RN - Comment: Stopped @ 0221.) prochlorperazine (COMPAZINE) injection 5 mg (COMPLETED) 5 mg, intravenous, Administer over 2 Minutes, Once, On Valeri 10/04/18 at 0458, For 1 dose 0508 (Given - Provid er: Lila Olivares RN - Comment: Stopped @ 0510.) PRN Medication Order 10/02/2018 10/03/2018 10/04/2018 ioversol (OPTIRAY 350) syringe syringe 100 mL (COMPLETED) 100 mL, intravenous, Once in imaging, contrast, Starting on Valeri 10/04/18 at 0303, For 1 dose 0304 (Given - Provid er: Mary Almendarez, R-RT) documented in this encounter Orders Lab Orders Without Results Count Last Ordered D ate First Ordered Date PRO B-TYPE NATRIURETIC PEPTIDE 1 10/04/2018 TSH REFLEX TO FREE T4 1 10/04/2018 POCT GLUCOSE DEVICE 1 10/03/2018 Nursing Count Last Ordered Date First Orde red Date NURSING COMMUNICATION 1 10/03/2018 IV Count Last Ordered Date First Orde red Date SALINE LOCK IV 1 10/03/2018 documented in this encounter Care Teams B And B Gang Worker Relationship Specialty Start Date End Date Justen Gale MD [address] [address] PCP - General 10/09/17 Liu Jerez MD Consulting Physician Gastroenterology 07/28/[address] [place] [address] [facility] [address] [place] [address] Consulting Physician Pulmonary Disease 08/03/17 Khris Arthur MD [address] [facility] [address] [place] [address] Medical Oncologist/Chamfering Machine Operator Medical Oncology 10/23/[address] [place] [address] [facility] [address] [place] [address] Surgeon Orthopedic Surgery 10/23/17 [place] [address] [facility] [address] [place] [address] Consulting Physician Pain Management 10/23/17 [place] [address] [facility] [address] [place] [address] Referring Physician General Surgery 01/26/18 [place] [address] [facility] [address] [place] [address] Consulting Physician Neurology 01/26/18 documented as of this encounter
--- OUTSIDE RECORDS SUMMARY | 2024-04-26 04:24 | XMS_ITS | Encounter Summary ---
Author Organization [facility] Address [address] [place] [address] Phone Care Team Providers Care Associate Professor Of Church Music Name Role Phone Liu Jerez MD Unavailable [phone] Albert Corbin MD Unavailable Justen Gale MD Primary Care Provider Khris Arthur MD Unavailable [phone] Ko Melendez MD Unavailable John Paul Moyer MD Unavailable Annel Rod MD Unavailable Anali MARSHALL MD, Carlos M. Unavailable Encounter Details Date Type Department Care Team (Late st Contact Info) Description 08/02/2019 Orders Only [facility] Oncology [address] [facility] 7th [place] [address] [place] [address] Nancy Dhillon RMA History of pulmonary embolism (Primary Dx); Other pulmonary embolism without acute cor pulmonale, unspecified chronicity (CMS/HCC); Malignant neoplasm of upper-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, unspecified estrogen receptor status (CMS/HCC); Malignant neoplasm of overlapping sites of left female breast, unspecified estrogen receptor status (CMS/HCC); Malignant neoplasm of female breast, unspecified estrogen receptor status, unspecified laterality, unspecified site of breast (CMS/HCC); History of DVT (deep vein thrombosis); Chronic [...] on file 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 Gender Identity Not on file Sexual [...] by mouth daily 30 tablet 11 08/02/2019 1 documented in this encounter Plan of Treatment Not on file documented as of this encounter Visit Diagnoses Diagnosis History of pulmonary embolism- Primary Personal history of venous thrombosis and embolism Other pulmonary embolism without acute cor pulmonale, unspecified chronicity (HCC) Malignant neoplasm of upper-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, unspecified estrogen receptor status (HCC) Malignant neoplasm of overlapping sites of left female breast, unspecified estrogen receptor status (HCC) Malignant neoplasm of female breast, unspecified estrogen receptor status, unspecified laterality, unspecified site of breast (HCC) History of DVT (deep vein thrombosis) Chronic anticoagulation Encounter for long-term (current) use of anticoagulants documented in this encounter Discontinued Medications Medication Sig Discontinue Reason Start Date End Da te XARELTO 20 mg tabletIndications:Other pulmonary embolism without acute cor pulmonale, unspecified chronicity (HCC),Malignant neoplasm of upper-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, unspecified estrogen receptor status (HCC),Malignant neoplasm of overlapping sites of left female breast, unspecified estrogen receptor status (HCC),Malignant neoplasm of female breast, unspecified estrogen receptor status, unspecified laterality, unspecified site of breast (HCC) TAKE 1 TABLET(20 MG) BY MOUTH DAILY AFTER DINNER Reorder 04/15/2019 08/02/2019 documented as of this encounter Care Teams Associate Professor Of Church Music Relationship Specialty Start Date End Date Justen Gale MD [address] [address] PCP - General 10/09/17 Liu Jerez MD Consulting Physician Gastroenterology 07/28/17 [place] [address] [facility] [address] [place] [address] Consulting Physician Pulmonary Disease 08/03/17 Khris Arthur MD [address] [facility] [address] [place] [address] Medical Oncologist/Peripheral Edp Equipment Operator Medical Oncology 10/23/17 [place] [address] [facility] [address] [place] [address] Surgeon Orthopedic Surgery 10/23/17 [place] [address] [facility] [address] [place] [address] Consulting Physician Pain Management 10/23/17 [place] [address] [facility] [address] [place] [address] Referring Physician General Surgery 01/26/18 [place] [address] [facility] [address] [place] [address] Consulting Physician Neurology 01/26/18 documented as of this encounter
--- OUTSIDE RECORDS SUMMARY | 2024-04-26 04:24 | XMS_ITS | Encounter Summary ---
Author Organization [facility] Address [address] [place] [address] Phone Care Team Providers Care Caustic Operator Name Role Phone Liu Jerez MD Unavailable Albert Corbin MD Unavailable Justen Gale MD Primary Care Provider [phone] Khris Arthur MD Unavailable [phone] Ko Melendez MD Unavailable [phone] John Paul Moyer MD Unavailable Annel Rod MD Unavailable Anali MARSHALL MD, Carlos M. 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 Per Dr. Arthur: If they want her off 5 days prior, she needs to bridge with lovenox. She can stop the xarelto as they prefer 5 days before, but start lovenox 120mg daily, the morning after she stops xarelto. She will then SKIP the lovenox 24 hours before endoscopy. She can then restart xarelto immediately after endoscopy if no biopsies are done. If biopsies are done, resume lovenox 48 hours after endoscopy, do this for 5 days, then switch back to usual dosing of xarelto. This information was faxed to Dr. Jensen's office and given to Karly over the phone. A copy of the directions was also mailed to her. Will send lovenox prescription to her local pharmacy. She expressed understanding of these directions. documented in this encounter Plan of Treatment Not on file documented as of this encounter Visit Diagnoses Not on filedocumented in this encounter Care Teams Caustic Operator Relationship Specialty Start Date End Date Justen Gale MD [address] [address] PCP - General 10/09/17 Liu Jerez MD Consulting Physician Gastroenterology 07/28/17 [place] [address] [facility] [address] [place] [address] Consulting Physician Pulmonary Disease 08/03/17 Khris Arthur MD [address] [facility] [address] [place] [address] Medical Oncologist/Creative Services Manager Medical Oncology 10/23/17 [place] [address] [facility] [address] [place] [address] Surgeon Orthopedic Surgery 10/23/17 [place] [address] [facility] [address] [place] [address] Consulting Physician Pain Management 10/23/17 [place] [address] [facility] [address] [place] [address] Referring Physician General Surgery 01/26/18 [place] [address] [facility] [address] [place] [address] Consulting Physician Neurology 01/26/18 documented as of this encounter
--- OUTSIDE RECORDS SUMMARY | 2024-04-26 04:24 | XMS_ITS | Encounter Summary ---
Author Organization [facility] Address [address] [place] [address] Phone Care Team Providers Care Client Account Manager Name Role Phone Liu Jerez MD Unavailable Albert Corbin MD Unavailable Justen Gale MD Primary Care Provider Khris Arthur MD Unavailable [phone] Ko Melendez MD Unavailable [phone] John Paul Moyer MD Unavailable [phone] Annel Rod MD Unavailable Anali MARSHALL MD, Carlos M. Unavailable [phone] Encounter Details Date Type Department Care Team (Late st Contact Info) Description 08/05/2019 Orders Only [facility] Oncology [address] [facility] 7th [place] [address] [place] [address] Khris Arthur MD 4921 [facility] [address] [place] [address] Social History Tobacco Use Types Packs/Day Years Used Date Smoking Tobacco: Former Smokeless Tobacco: Never Comments:remote tobacco use Alcohol Use Standard Drinks/Week Comments No 0 (1 standard drink = 0.6 oz pur e alcohol) PHQ-2 Answer Date Recorded PHQ-2 Score 1 12/15/2018 Comments No Sex and Gender Information Value Date Recorded Sex Assigned at Not on file 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 Gender Identity Not on file Sexual Orientation Not on file documented as of this encounter Plan of Treatment Not on file documented as of this encounter Visit Diagnoses Not on filedocumented in this encounter Care Teams Client Account Manager Relationship Specialty Start Date End Date Justen Gale MD 2 [facility] [address] [place] [address] PCP - General 10/09/17 Liu Jerez MD Consulting Physician Gastroenterology 07/28/17 [place] [address] [id number] [place] [address] Consulting Physician Pulmonary Disease 08/03/17 Khris Arthur MD 49[address] [facility] [address] [place] [address] Medical Oncologist/Ham Pumper Medical Oncology 10/23/17 [place] [address] [address] Surgeon Orthopedic Surgery 10/23/17 [place] [address] [address] [facility] [address] [place] [address] Consulting Physician Pain Management 10/23/17 [place] [address] [address] [facility] [address] [place] [address] Referring Physician General Surgery 01/26/18 [place] [address] [address] [facility] [address] [place] [address] Consulting Physician Neurology 01/26/18 documented as of this encounter
--- OUTSIDE RECORDS SUMMARY | 2024-04-26 04:24 | XMS_ITS | Encounter Summary ---
Author Organization [facility] Address [address] [place] [address] Phone Care Team Providers Care Factory Expert Name Role Phone Liu Jerez MD Unavailable Albert Corbin MD Unavailable [phone] Justen Gale MD Primary Care Provider Khris Arthur MD Unavailable [phone] Ko Melendez MD Unavailable [phone] John Paul Moyer MD Unavailable Annel Rod MD Unavailable Anali MARSHALL MD, Carlos M. 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 FU in 6 months. Cosigned by Rj Phillips MD at 08/24/2018 1:54 PM CDT documented in this encounter Plan of Treatment Not on file documented as of this encounter Visit Diagnoses Not on filedocumented in this encounter Care Teams Factory Expert Relationship Specialty Start Date End Date Justen Gale MD [address] [place] [id number] PCP - General 10/09/17 Liu Jerez MD Consulting Physician Gastroenterology 07/28/17 [place] [address] [facility] [address] [place] [address] Consulting Physician Pulmonary Disease 08/03/17 Khris Arthur MD 4921 [facility] [address] [place] [address] Medical Oncologist/Wood Gouger Medical Oncology 10/23/17 [place] [address] [facility] [address] [place] [address] Surgeon Orthopedic Surgery 10/23/17 [place] [address] [facility] [address] [place] [address] Consulting Physician Pain Management 10/23/17 [place] [address] [facility] [address] [place] [address] Referring Physician General Surgery 01/26/18 [place] [address] [facility] [address] [place] [address] Consulting Physician Neurology 01/26/18 documented as of this encounter
--- OUTSIDE RECORDS SUMMARY | 2024-04-26 04:24 | XMS_ITS | Encounter Summary ---
Author Organization [facility] [place] [facility] Address [address] [place] [address] Phone Care Team Providers Care Terminal Carman Name Role Phone Liu Jerez MD Unavailable Albert Corbin MD Unavailable Justen Gale MD Primary Care Provider Khris Arthur MD Unavailable [phone] Ko Melendez MD Unavailable [phone] John Paul Moyer MD Unavailable [phone] Annel Rod MD Unavailable Anali MARSHALL MD, Carlos M. 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 Camarillo and a bone density exam. Provided call back number to confirm. Will await return call documented in this encounter Plan of Treatment Not on file documented as of this encounter Visit Diagnoses Not on filedocumented in this encounter Care Teams Terminal Carman Relationship Specialty Start Date End Date Justen Gale MD [address] [address] PCP - General 10/09/17 Liu Jerez MD Consulting Physician Gastroenterology 07/28/17 [place] [address] [address] [facility] [address] [place] [address] Consulting Physician Pulmonary Disease 08/03/17 Khris Arthur MD 4921 [facility] [address] [place] [address] Medical Oncologist/Bindery Machine Feeder Offbearer Medical Oncology 10/23/17 [place] [address] [facility] [address] [place] [address] Surgeon Orthopedic Surgery 10/23/17 [place] [address] [address] Consulting Physician Pain Management 10/23/17 [place] [address] [address] Referring Physician General Surgery 01/26/18 [place] [address] [facility] [address] [place] [address] Consulting Physician Neurology 01/26/18 documented as of this encounter
--- OUTSIDE RECORDS SUMMARY | 2024-04-26 04:24 | XMS_ITS | Encounter Summary ---
Author Organization [facility] Address [address] [place] [address] Phone Care Team Providers Care Casino Controller Name Role Phone Liu Jerez MD Unavailable [phone] Albert Corbin MD Unavailable Justen Gale MD Primary Care Provider Khris Arthur MD Unavailable [phone] Ko Melendez MD Unavailable John Paul Moyer MD Unavailable [phone] Annel Rod MD Unavailable Anali MARSHALL MD, Carlos M. Unavailable Encounter Details Date Type Department Care Team (Late st Contact Info) Description 02/28/2020 Documentation [facility] Oncology [address] [facility] 7th [place] [address] [place] [address] Cira Maxwell LCSW Social History Tobacco Use Types Packs/Day Years Used Date Smoking Tobacco: Former Smokeless Tobacco: Never Comments:remote tobacco use Alcohol Use Standard Drinks/Week Comments No 0 (1 standard drink = 0.6 oz pur e alcohol) PHQ-2 Answer Date Recorded PHQ-2 Score 1 12/15/2018 Comments No Sex and Gender Information Value Date Recorded Sex Assigned at Not on file 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 Patient reports, having fixed income and voiced financial difficulties attending appointments due to cost of transportation (Gas). Patient was given information of health insurance IDPA's transportation assistance program (can provide transportation to attend appointment) and gas mileage reimbursement benefits. Patient expressedunderstanding of information provided. Patient declined Social Work assistance with arranging transportation and gas mileage reimbursement via health insurance IPDA. Community Resources Social Work provided Patient with information about: [place] [employer] and Other: [employer] Transportation Assistance Program. Patient was provided with an application to complete and return to Social Work or return directly to agencies for financial and transportation assistance. Patient will follow up on information provided. Cira Maxwell LCSW OID PLATFORM DEVELOPER documented in this encounter Plan of Treatment Not on file documented as of this encounter Visit Diagnoses Not on filedocumented in this encounter Care Teams Casino Controller Relationship Specialty Start Date End Date Justen Gale MD [address] [address] PCP - General 10/09/17 Liu Jerez MD Consulting Physician Gastroenterology 07/28/17 [place] [address] [facility] [address] [place] [address] Consulting Physician Pulmonary Disease 08/03/17 Khris Arthur MD 4921 [facility] [address] [place] [address] Medical Oncologist/Manager Of Loss Prevention Operations Medical Oncology 10/23/17 [place] [address] [facility] [address] [place] [address] Surgeon Orthopedic Surgery 10/23/17 [place] [address] [facility] [address] [place] [address] Consulting Physician Pain Management 10/23/17 [place] [address] [facility] [address] [place] [address] Referring Physician General Surgery 01/26/18 [place] [address] [facility] [address] [place] [address] Consulting Physician Neurology 01/26/18 documented as of this encounter
--- OUTSIDE RECORDS SUMMARY | 2024-04-26 04:24 | XMS_ITS | Encounter Summary ---
Author Organization [facility] Address [address] [place] [address] Phone Care Team Providers Care Keno Writer Name Role Phone Liu Jerez MD Unavailable [phone] Albert Cobrin MD Unavailable Justen Gale MD Primary Care Provider [phone] Khris Arthur MD Unavailable [phone] Ko Melendez MD Unavailable John Paul Moyer MD Unavailable [phone] Annel Rod MD Unavailable nAali MARSHALL MD, Carlos M. Unavailable [phone] Reason for Visit * Oncology (Routine) - Closed Specialty Diagnoses / Procedures Referred By Contac t Referred To Contact Lab Diagnoses Malignant neoplasm of overlapping sites of left female breast, unspecified estrogen receptor status (HCC) LAB/ROV Procedures ONCBCN LAB APPOINTMENT Khris Longo MD Phone: tel: fax: [facility] Oncology [address] [facility] 7th [place] [address] [place] [address] Phone: tel: Referral ID Status Reason Start Date Expiration Date V isits Requested Visits Authorized [id number] Closed Specialty Services Required 07/11/2018 01/07/2019 12 12 Encounter Details Date Type Department Care Team (Late st Contact Info) Description 08/28/2018 1:00 PM CDT Lab [facility] Oncology [address] [facility] 7th [place] [address] [place] [address] Khris Arthur MD [address] [facility] [address] [place] [address] Malignant neoplasm of overlapping sites of left female breast, unspecified estrogen receptor status (CMS/HCC) Discharge Disposition: Discharge to home or self care Social History Tobacco Use Types Packs/Day Years Used Date Smoking Tobacco: Former Smokeless Tobacco: Never Comments:remote tobacco use Alcohol Use Standard Drinks/Week Comments No 0 (1 standard drink = 0.6 oz pur e alcohol) Comments No Sex and Gender Information Value Date Recorded Sex Assigned at Not on file 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 Gender Identity Not on file Sexual Orientation Not on file documented as of this encounter Discharge Disposition Disposition Code Departure Means Destination Discharge to home or self care documented in this encounter Plan of Treatment Not on file documented as of this encounter Procedures Procedure Name Priority Date/Time Associated Diagnosis Comments COMPREHENSIVE METABOLIC PANEL STAT 08/28/2018 1:21 PM CDT Malignant neoplasm of overlapping sites of left female breast, unspecified estrogen receptor status (CMS/HCC) DIFFERENTIAL AUTO Routine 08/28/2018 1:2 0 PM CDT Malignant neoplasm of overlapping sites of left female breast, unspecified estrogen receptor status (CMS/HCC) CBC WITH AUTO DIFFERENTIAL Routine 08/28/2018 1:20 PM CDT Malignant neoplasm of overlapping sites of left female breast, unspecified estrogen receptor status (CMS/HCC) documented in this encounter Results * Comprehensive metabolic panel (08/28/2018 1:21 PM CDT) Sodium 139 135 - 145 mmol/L [facility] Potassium, pl 4.3 3.3 - 4.9 mmol/L [facility] Chloride 103 97 - 110 mmol/L [facility] CO2 28 22 - 32 mmol/L [facility] Anion gap 8 2 - 15 mmol/L [facility] BUN 17 8 - 25 mg/dL [facility] Creatinine 0.74 0.60 - 1.10 mg/dL [facility] Glucose 118 70 - 199 mg/dL [facility] Comment: Interpretive Data Fasting glucose [...] interpretive data was last revised 2017. Calcium 10.0 8.5 - 10.3 mg/dL [facility] Bilirubin, total 0.4 0.1 - 1.2 mg/dL [facility] Protein, pl 8.4 6.5 - 8.5 g/dL [facility] Albumin 3.8 3.5 - 5.0 g/dL [facility] Alk phos 87 40 - 130 Units/L [facility] ALT 27 7 - 45 Units/L [facility] AST 30 10 - 45 Units/L [facility] Blood specimen (specimen) 08/28/2018 1:21 PM CDT 08/28/2018 1:35 PM CDT Narrative [facility] - 08/28/2018 2:10 PM CDT Darcy Goel NP LAB BLOOD ORDERABLES Final Result [facility] [place] [address] * (ABNORMAL) Differential, auto (08/28/2018 1:20 PM CDT) Neutrophil abs 7.2(H) 1.8 - 6.6 K/cumm [facility] Comment:Testing performed by : [facility], [address] [place] [phone] Lymphocyte abs 2.7 1.2 - 3.3 K/cumm [facility] Comment:Testing performed by : [facility], [address] [place] [phone] Monocyte abs 0.8 0.2 - 1.2 K/cumm [facility] Comment:Testing performed by : [facility], [address] [place] [phone] Eosinophil abs 0.3 0.0 - 0.5 K/cumm [facility] Comment:Testing performed by : [facility], [address] [place] [phone] Basophil abs 0.1 0.0 - 0.2 K/cumm [facility] Comment:Testing performed by : [facility], [address] [place] [phone] Neutrophil pct 64.8 % [facility] Comment: Interpretive Data Percent cell count reference ranges are not reported, since discordance with absolute values may lead to misinterpretation of CBC data. Current Interpretive Data was last revised on 2017. Testing performed by: [facility], [address] [place] [phone] Lymphocyte pct 24.2 % [facility] Comment: Interpretive Data Percent cell count reference ranges are not reported, since discordance with absolute values may lead to misinterpretation of CBC data. Current Interpretive Data was last revised on 2017. Testing performed by: [address] [phone] Monocyte pct 7.1 % [facility] Comment:Testing performed by : [facility], [address] [place] [phone] Eosinophil pct 2.8 % [facility] Comment:Testing performed by : [facility], [address] [place] [phone] Basophil pct 1.1 % [facility] Comment:Testing performed by : [facility], [address] [place] [phone] Blood specimen (specimen) 08/28/2018 1:20 PM CDT 08/28/2018 1:22 PM CDT Narrative [facility] - 08/28/2018 1:28 PM CDT Darcy Goel SQUIRT MACHINE OPERATOR LAB BLOOD ORDERABLES Final Result [facility] One [facility] [place] [address] * (ABNORMAL) CBC with auto differential (08/28/2018 1:20 PM CDT) WBC 11.1(H) 3.8 - 9.8 K/cumm [facility] Comment:Testing performed by : [facility], [address] [place] [phone] Hgb 12.4 12.1 - 15.1 g/dL [facility] Comment:Testing performed by : [address] [phone] Hct 38.8 36.1 - 44.3 % [facility] Comment:Testing performed by : [place] [phone] Plt 326 140 - 440 K/cumm [facility] Comment:Testing performed by : [facility], [address] [place] [phone] MPV 7.2 6.8 - 10.4 fL [facility] Comment:Testing performed by : [address] [phone] RBC 4.44 3.90 - 5.00 M/cumm [facility] Comment:Testing performed by : [address] [phone] MCV 87.5 80.0 - 97.6 fL [facility] Comment:Testing performed by : [facility], [address] [place] [phone] MCH 27.9 26.7 - 33.7 pg [facility] Comment:Testing performed by : [facility], [address] [place] [phone] MCHC 31.9(L) 32.7 - 35.5 g/dL [facility] Comment:Testing performed by : [facility], [address] [place] [phone] RDW CV 14.5 11.8 - 14.6 % [facility] Comment:Testing performed by : [facility], [address] [place] [phone] NRBC abs 0.01 0.00 - 0.01 K/cumm [facility] Comment:Testing performed by : [facility], [address] [place] [phone] Blood specimen (specimen) 08/28/2018 1:20 PM CDT 08/28/2018 1:22 PM CDT Narrative [facility] - 08/28/2018 1:28 PM CDT Darcy Goel SQUIRT MACHINE OPERATOR LAB BLOOD ORDERABLES Final Result [facility] Department of Laboratories [place], [place] [id number] documented in this encounter Visit Diagnoses Diagnosis Malignant neoplasm of overlapping sites of left female breast, unspecified estrogen receptor status (HCC) documented in this encounter Care Teams Keno Writer Relationship Specialty Start Date End Date Justen Gale MD [address] [address] PCP - General 10/09/17 Liu Jerez MD Consulting Physician Gastroenterology 07/28/17 [place] [address] [facility] [place] [address] [place] [address] Consulting Physician Pulmonary Disease 08/03/17 Khris Arthur MD 4921 [facility] [address] [place] [address] Medical Oncologist/Patent Examiner Medical Oncology 10/23/17 [place] [address] [address] [facility] [address] [place] [address] Surgeon Orthopedic Surgery 10/23/17 [place] [address] [address] [facility] [address] [place] [address] Consulting Physician Pain Management 10/23/17 [place] [address] [address] [facility] [address] [place] [address] Referring Physician General Surgery 01/26/18 [place] [address] [address] [facility] [address] [place] [address] Consulting Physician Neurology 01/26/18 documented as of this encounter
--- OUTSIDE RECORDS SUMMARY | 2024-04-26 04:24 | XMS_ITS | Encounter Summary ---
Author Organization [facility] Address [address] [place] [address] Phone Care Team Providers Care Light Rail Vehicle Operator Name Role Phone Liu Jerez MD Unavailable Albert Corbin MD Unavailable Justen Gale MD Primary Care Provider Khris Arthur MD Unavailable [phone] Ko Melendez MD Unavailable John Paul Moyer MD Unavailable Annel Rod MD Unavailable Anali MARSHALL MD, Carlos M. Unavailable [phone] Encounter Details Date Type Department Care Team (Late st Contact Info) Description 02/18/2020 Telephone [facility] Oncology [address] [facility] 7th [place] [address] [place] [address] Antonietta Dahl CMA Social History Tobacco Use Types Packs/Day Years Used Date Smoking Tobacco: Former Smokeless Tobacco: Never Comments:remote tobacco use Alcohol Use Standard Drinks/Week Comments No 0 (1 standard drink = 0.6 oz pur e alcohol) PHQ-2 Answer Date Recorded PHQ-2 Score 1 12/15/2018 Comments No Sex and Gender Information Value Date Recorded Sex Assigned at Not on file 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 I called and left a message on [employer] that she had been rescheduled with date and times. I also mailed patient itinerary for confirmation. documented in this encounter Plan of Treatment Not on file documented as of this encounter Visit Diagnoses Not on filedocumented in this encounter Care Teams Light Rail Vehicle Operator Relationship Specialty Start Date End Date Justen Gale MD [address] [address] PCP - General 10/09/17 Liu Jerez MD Consulting Physician Gastroenterology 07/28/17 [place] [address] [address] [facility] [address] [place] [address] Consulting Physician Pulmonary Disease 08/03/17 Khris Arthur MD 4921 [facility] [address] [place] [address] Medical Oncologist/Training Personnel Supervisor Medical Oncology 10/23/17 [place] [address] [facility] [address] [place] [address] Surgeon Orthopedic Surgery 10/23/17 [place] [address] [address] Consulting Physician Pain Management 10/23/17 [place] [address] [address] Referring Physician General Surgery 01/26/18 [place] [address] [facility] [address] [place] [address] Consulting Physician Neurology 01/26/18 documented as of this encounter
--- OUTSIDE RECORDS SUMMARY | 2024-04-26 04:24 | XMS_ITS | Encounter Summary ---
Author Organization [facility] Address [address] [place] [address] Phone Care Team Providers Care Booky Name Role Phone Liu Jerez MD Unavailable Albert Corbin MD Unavailable [phone] Justen Gale MD Primary Care Provider Khris Arthur MD Unavailable [phone] Ko Melendez MD Unavailable John Paul Moyer MD Unavailable Annel Rod MD Unavailable Anali MARSHALL MD, Carlos M. 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 Camarillo. These appointments were rescheduled to 12/2019. Left a voice mail with patient to let her know we can do a telephone visit with Dr. Camarillo if she feels she has concerns that need to be addressed sooner. documented in this encounter Plan of Treatment Not on file documented as of this encounter Visit Diagnoses Not on filedocumented in this encounter Care Teams Booky Relationship Specialty Start Date End Date Justen Gale MD 2 [facility] [address] [place] [address] PCP - General 10/09/17 Liu Jerez MD Consulting Physician Gastroenterology 07/28/[address] [place] [address] [facility] [address] [place] [address] Consulting Physician Pulmonary Disease 08/03/17 [place] [address] [place] [address] [address] [place] [address] Medical Oncologist/Straight Edger Medical Oncology 10/23/[address] [place] [address] [facility] [address] [place] [address] Surgeon Orthopedic Surgery 10/23/17 [place] [address] [address] Consulting Physician Pain Management 10/23/[address] [place] [address] [facility] [address] [place] [address] Referring Physician General Surgery 01/26/18 [place] [address] [facility] [address] [place] [address] Consulting Physician Neurology 01/26/18 documented as of this encounter
--- OUTSIDE RECORDS SUMMARY | 2024-04-26 04:24 | XMS_ITS | Encounter Summary ---
Author Organization [facility] Address [address] [place] [address] Care Team Providers Care Independent Contractor Name Role Phone Liu Jerez MD Unavailable Albert Corbin MD Unavailable Justen Gale MD Primary Care Provider Khris Arthur MD Unavailable [phone] Ko Melendez MD Unavailable [phone] John Paul Moyer MD Unavailable Annel Rod MD Unavailable Anali MARSHALL MD, Carlos M. Unavailable [phone] Reason for Referral * Diagnostic Imaging (Routine) - Closed Specialty Diagnoses / Procedures Referred By Elyssa t Referred To Contact Radiology Diagnoses Lumbar radiculopathy Procedures MRI Thoracic Spine WO Contrast Madelyn Donnelly, ROTARY SOIL STABILIZER Phone: tel: fax: [address] [address] Referral ID Status Reason Start Date Expiration Date Visits Re quested Visits Authorized [id number] Closed 01/15/2019 07/26/2020 1 1 Reason for Visit * Diagnostic Imaging (Routine) - Closed Specialty Diagnoses / Procedures Referred By Elyssa benavides Referred To Contact Radiology Diagnoses Lumbar radiculopathy Procedures MRI Thoracic Spine WO Contrast Madelyn Donnelly NP Phone: tel: fax: [address] [address] Referral ID Status Reason Start Date Expiration Date Visits Re quested Visits Authorized [id number] Closed 01/15/2019 07/26/2020 1 1 Encounter Details Date Type Department Care Team (Late st Contact Info) Description 01/21/2019 2:30 PM CDT - 01/21/2019 11:59 PM CDT Hospital Encounter [facility] [address] [place] [address] Taylor Smith MD [address] [place] [address] Madelyn Donnelly NP [address] [place] [address] Lumbar radiculopathy Discharge Disposition: Discharge to home or self [...] on file 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 10 tablet 03/17/[address] (VOLTAREN) 75 mg EC tablet Take 75 mg by mouth 2 (two) times a day as needed 01/17/2019 1 diphenhydrAMINE (diphenhydrAMINE) 25 mg capsule Take [...] Applicable route 4 times daily 01/19/2018 1 lidocaine (LIDODERM) 5 % PLACE 1 PATCH ONTO THE SKIN D FOR 30 DAYS. REMOVE AND DISCARD PATCH WITHIN 12 HOURS OR UTD BY MD 0 12/12/2018 1 lisinopril (PRINIVIL,ZESTRIL ) 20 mg tablet [...] nausea or vomiting 30 tablet 10/04/2018 1 ONETOUCH ULTRA BLUE TEST STRIP strip TEST QID 3 12/04/2018 1 oxybutynin (DITROPAN) 5 mg tablet take [...] Name Priority Date/Time Associated Diagnosis Comments MRI THORACIC SPINE WO CONTRAST Schedule Routine, Read Routine (OP Routine) 01/21/2019 3:03 PM CDT Lumbar radiculopathy documented in this encounter Results * MRI Thoracic Spine WO Contrast (01/21/2019 3:03 PM CDT) Anatomical Region Laterality Modality Spine N/A Magnetic Resonan ce 01/21/2019 3:07 PM CDT Impressions 01/21/2019 3:11 PM CDT 1. ??MULTILEVEL CANAL STENOSIS DUE TO DISC BULGING AND THICKENING OF THE POSTERIOR LONGITUDINAL LIGAMENT EXTENDING FROM T6-T7 THROUGH T11-T12. 2. ??MILD DEXTROSCOLIOSIS OF THE THORACIC SPINE. 3. ??NO EVIDENCE OF FRACTURE. Electronically signed by: Samson Fulton M.D. Narrative 01/21/2019 3:11 PM CDT MRI THORACIC SPINE WO CONTRAST HISTORY: Radiculopathy, lumbar region. ??Mid back pain. TECHNIQUE: Standard spine imaging was obtained using axial and sagittal T1 and T2 sequences without contrast. COMPARISON: None available. FINDINGS: Mild dextroscoliosis of the thoracic spine is present. ??There is no evidence of fracture, marrow edema or spondylolisthesis. ??Diffuse degenerative endplate spurring and degenerative disc desiccation is present. ??The paraspinal structures are normal. ??The thoracic cord appears grossly normal. ?? Significant thickening of the posterior longitudinal ligament and broad-based disc bulging is present from the T6-T7 to the T11-T12 level resulting in mild multilevel canal stenosis. ??Foraminal stenosis is also present. ??No other focal pathology is seen. Procedure Note Samson Fulton MD - 01/21/2019 MRI THORACIC SPINE WO CONTRAST HISTORY: Radiculopathy, lumbar region. Mid back pain. TECHNIQUE: Standard spine imaging was obtained using axial and sagittal T1 and T2 sequences without contrast. COMPARISON: None available. FINDINGS: Mild dextroscoliosis of the thoracic spine is present. There is no evidence of fracture, marrow edema or spondylolisthesis. Diffuse degenerative endplate spurring and degenerative disc desiccation is present. The paraspinal structures are normal. The thoracic cord appears grossly normal. Significant thickening of the posterior longitudinal ligament and broad-based disc bulging is present from the T6-T7 to the T11-T12 level resulting in mild multilevel canal stenosis. Foraminal stenosis is also present. No other focal pathology is seen. IMPRESSION: 1. MULTILEVEL CANAL STENOSIS DUE TO DISC BULGING AND THICKENING OF THE POSTERIOR LONGITUDINAL LIGAMENT EXTENDING FROM T6-T7 THROUGH T11-T12. 2. MILD DEXTROSCOLIOSIS OF THE THORACIC SPINE. 3. NO EVIDENCE OF FRACTURE. Electronically signed by: Samson Fulton M.D. Madelyn Donnelly ROTARY SOIL STABILIZER IMG MRI PROCEDURES Final Resul t documented in this encounter Visit Diagnoses Diagnosis Lumbar radiculopathy Thoracic or lumbosacral neuritis or radiculitis, unspecified documented in this encounter Care Teams Independent Contractor Relationship Specialty Start Date End Date Justen Gale MD [address] [id number] PCP - General 10/09/17 Liu Jerez MD Consulting Physician Gastroenterology 07/28/17 [place] [address] [facility] [address] [place] [address] Consulting Physician Pulmonary Disease 08/03/17 Khris Arthur MD [address] [facility] [address] [place] [address] Medical Oncologist/Upward Bound Director Medical Oncology 10/23/17 [place] [address] [facility] [address] [place] [address] Surgeon Orthopedic Surgery 10/23/17 [place] [address] [facility] [address] [place] [address] Consulting Physician Pain Management 10/23/17 [place] [address] [facility] [address] [place] [address] Referring Physician General Surgery 01/26/18 [place] [address] [facility] [address] [place] [address] Consulting Physician Neurology 01/26/18 documented as of this encounter
--- OUTSIDE RECORDS SUMMARY | 2024-04-26 04:24 | XMS_ITS | Encounter Summary ---
Author Organization [facility] Address [address] [place] [address] Phone Care Team Providers Care Etl Informatica Architect Name Role Phone Liu Jerez MD Unavailable Albert Corbin MD Unavailable [phone] Justen Gale MD Primary Care Provider Khris Arthur MD Unavailable [phone] Ko Melendez MD Unavailable John Paul Moyer MD Unavailable Annel Rod MD Unavailable Anali MARSHALL MD, Carlos M. 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 Gender Identity Not on file Sexual Orientation Not on file documented as of this encounter Plan of Treatment Not on file documented as of this encounter Visit Diagnoses Diagnosis Malignant neoplasm of upper-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, unspecified estrogen receptor status (HCC)- Primary MCC (current) use 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 inhibitors documented in this encounter Care Teams Etl Informatica Architect Relationship Specialty Start Date End Date Justen Gale MD [address] [address] PCP - General 10/09/17 Liu Jerez MD Consulting Physician Gastroenterology 07/28/17 [place] [address] [facility] [address] [place] [address] Consulting Physician Pulmonary Disease 08/03/17 Khris Arthur MD [address] [facility] [address] [place], [place] [id number] Medical Oncologist/Injection Machine Operator Medical Oncology 10/23/17 [place] [address] [facility] [address] [place] [address] Surgeon Orthopedic Surgery 10/23/17 [place] [address] [facility] [address] [place] [address] Consulting Physician Pain Management 10/23/17 [place] [address] [facility] [address] [place] [address] Referring Physician General Surgery 01/26/18 [place] [address] [facility] [address] [place] [address] Consulting Physician Neurology 01/26/18 documented as of this encounter
--- OUTSIDE RECORDS SUMMARY | 2024-04-26 04:24 | XMS_ITS | Encounter Summary ---
Author Organization [facility] Address [address] [place] [address] Phone Care Team Providers Care Hearing Dog Trainer Name Role Phone Liu Jerez MD Unavailable Albert Corbin MD Unavailable Justen Gale MD Primary Care Provider Khris Arthur MD Unavailable [phone] Ko Melendez MD Unavailable [phone] John Paul Moyer MD Unavailable Annel Rod MD Unavailable Anali MARSHALL MD, Carlos M. Unavailable [phone] Reason for Visit * Reason Onset Date Comments Appointment information 02/14/2020 Encounter Details Date Type Department Care Team (Late st Contact Info) Description 02/14/2020 Telephone [facility] Oncology [address] [facility] 7th [place] [address] [place] [address] Khris Arthur MD 49[address] [facility] [address] [place] [address] Appointment information Social History Tobacco Use Types Packs/Day Years Used Date Smoking Tobacco: Former Smokeless Tobacco: Never Comments:remote tobacco use Alcohol Use Standard Drinks/Week Comments No 0 (1 standard drink = 0.6 oz pur e alcohol) PHQ-2 Answer Date Recorded PHQ-2 Score 1 12/15/2018 Comments No Sex and Gender Information Value Date Recorded Sex Assigned at Not on file 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 Marques left a voicemail message asking for a return call to discuss her appointment times. I returned her call and provided her appointment information in a voicemail per her request. documented in this encounter Plan of Treatment Not on file documented as of this encounter Visit Diagnoses Not on filedocumented in this encounter Care Teams Hearing Dog Trainer Relationship Specialty Start Date End Date Justen Gale MD [address] [address] PCP - General 10/09/17 Liu Jerez MD Consulting Physician Gastroenterology 07/28/17 [place] [address] [id number] [place] [address] Consulting Physician Pulmonary Disease 08/03/17 Khris Arthur MD [address] [facility] [address] [place] [address] Medical Oncologist/Brickmason Contractor Medical Oncology 10/23/17 [place] [address] [facility] [address] [place] [address] Surgeon Orthopedic Surgery 10/23/17 [place] [address] [address] Consulting Physician Pain Management 10/23/17 [place] [address] [address] Referring Physician General Surgery 01/26/18 [place] [address] [facility] [address] [place] [address] Consulting Physician Neurology 01/26/18 documented as of this encounter
--- OUTSIDE RECORDS SUMMARY | 2024-04-26 04:24 | XMS_ITS | Encounter Summary ---
Author Organization [facility] Address [address] [place] [address] Phone Care Team Providers Care Director Of Physiotherapy Services Name Role Phone Liu Jerez MD Unavailable Albert Corbin MD Unavailable Justen Gale MD Primary Care Provider Khris Arthur MD Unavailable [phone] Ko Melendez MD Unavailable John Paul Moyer MD Unavailable Annel Rod MD Unavailable Anali MARSHALL MD, Carlos M. Unavailable Encounter Details Date Type Department Care Team (Late st Contact Info) Description 12/20/2019 Orders Only [facility] Oncology [address] [facility] 7th [place] [address] [place] [address] Khris Arthur MD 49[address] [facility] [address] [place] [address] Social History Tobacco Use Types Packs/Day Years Used Date Smoking Tobacco: Former Smokeless Tobacco: Never Comments:remote tobacco use Alcohol Use Standard Drinks/Week Comments No 0 (1 standard drink = 0.6 oz pur e alcohol) PHQ-2 Answer Date Recorded PHQ-2 Score 1 12/15/2018 Comments No Sex and Gender Information Value Date Recorded Sex Assigned at Not on file 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 Stop 24 hours prior to procedure. Resume 48 hours after procedure if biopsies were taken and take for 5 days. Then resume xarelto. 9 Syringe 12/20/2019 1 documented in this encounter Plan of Treatment Not on file documented as of this encounter Visit Diagnoses Not on filedocumented in this encounter Care Teams Director Of Physiotherapy Services Relationship Specialty Start Date End Date Justen Gale MD [address] [address] PCP - General 10/09/17 Liu Jerez MD Consulting Physician Gastroenterology 07/28/17 [place] [address] [place] [id number] [place] [address] Consulting Physician Pulmonary Disease 08/03/17 Khris Arthur MD 4921 [facility] [address] [place] [address] Medical Oncologist/Motion Picture Director Medical Oncology 10/23/17 [place] [address] [facility] [address] [place] [address] Surgeon Orthopedic Surgery 10/23/17 [place] [address] [address] Consulting Physician Pain Management 10/23/17 [place] [address] [facility] [address] [place] [address] Referring Physician General Surgery 01/26/18 [place] [address] [facility] [address] [place] [address] Consulting Physician Neurology 01/26/18 documented as of this encounter
--- OUTSIDE RECORDS SUMMARY | 2024-04-26 04:24 | XMS_ITS | Encounter Summary ---
Author Organization [facility] Address [address] [place] [address] Phone Care Team Providers Care Senior Lead Project Manager Name Role Phone Liu Jerez MD Unavailable Albert Corbin MD Unavailable Justen Gale MD Primary Care Provider [phone] Khris Arthur MD Unavailable [phone] Ko Melendez MD Unavailable John Paul Moyer MD Unavailable [phone] Annel Rod MD Unavailable Anali MARSHALL MD, Carlos M. Unavailable [phone] Encounter Details Date Type Department Care Team (Late st Contact Info) Description 08/01/2019 Orders Only [facility] Oncology [address] 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 After a meal Reorder 04/27/2018 08/01/2019 documented as of this encounter Care Teams Senior Lead Project Manager Relationship Specialty Start Date End Date Justen Gale MD 2 [facility] [address] [place] [address] PCP - General 10/09/17 Liu Jerez MD Consulting Physician Gastroenterology 07/28/17 [place] [address] [facility] [address] [place] [address] Consulting Physician Pulmonary Disease 08/03/17 Khris Arthur MD 4921 [facility] [address] [place] [address] Medical Oncologist/Insurance Sales Manager Medical Oncology 10/23/17 [place] [address] [facility] [address] [place] [address] Surgeon Orthopedic Surgery 10/23/17 [place] [address] [facility] [address] [place] [address] Consulting Physician Pain Management 10/23/17 [place] [address] [facility] [address] [place] [address] Referring Physician General Surgery 01/26/18 [place] [address] [facility] [address] [place] [address] Consulting Physician Neurology 01/26/18 documented as of this encounter
--- OUTSIDE RECORDS SUMMARY | 2024-04-26 04:24 | XMS_ITS | Encounter Summary ---
Author Organization [facility] Address [address] [place] [address] Phone Care Team Providers Care Sheet Metal Worker Maintenance Name Role Phone Liu Jerez MD Unavailable [phone] Albert Corbin MD Unavailable Justen Gale MD Primary Care Provider [phone] Khris Arthur MD Unavailable [phone] Ko Melendez MD Unavailable John Paul Moyer MD Unavailable Annel Rod MD Unavailable Anali MARSHALL MD, Carlos M. Unavailable [phone] Reason for Visit * Oncology (Routine) - Closed Specialty Diagnoses / Procedures Referred By Contac t Referred To Contact Medical Oncology / Oncology Diagnoses Malignant neoplasm of overlapping sites of left female breast, unspecified estrogen receptor status (HCC) LAB/ROV Procedures ONCBCN CLINIC APPOINTMENT REQUEST RETURN Khris Arthur MD Phone: tel: fax: Khris Arthur MD [address] [facility] [address] [place] [address] Phone: tel: fax: Referral ID Status Reason Start Date Expiration Date V isits Requested Visits Authorized [id number] Closed Specialty Services Required 07/11/2018 01/07/2019 12 12 Encounter Details Date Type Department Care Team (Late st Contact Info) Description 08/28/2018 1:30 PM CDT Office Visit [facility] Oncology [address] [facility] 7th [place] [address] [place] [id number] Khris Arthur MD [address] [facility] [address] [place] [address] Malignant neoplasm of overlapping sites of left female breast, unspecified estrogen receptor status (CMS/HCC) (Primary Dx) Social History Tobacco Use Types Packs/Day Years Used Date Smoking Tobacco: Former Smokeless Tobacco: Never Comments:remote tobacco use Alcohol Use Standard Drinks/Week Comments No 0 (1 standard drink = 0.6 oz pur e alcohol) Comments No Sex and Gender Information Value Date Recorded Sex Assigned at Not on file 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 Gender Identity Not on file Sexual Orientation Not on file documented as of this encounter Last Filed Vital Signs Vital Sign Reading Time Taken Comments Blood Pressure 145/83 08/28/2018 1:48 PM CDT Pulse 97 08/28/2018 1:48 PM CDT Temperature 36.7 ??C (98.1 ??F) 08/28/2018 1:48 PM CDT Respiratory Rate 18 08/28/2018 1:48 PM CDT Oxygen Saturation 97% 08/28/2018 1:48 PM CDT Inhaled Oxygen Concentration - - Weight 132.3 kg (291 lb 11.2 oz) 08/28/2018 1:48 PM CDT Height 151.3 cm (4' 11.57 ) 08/28/2018 1:48 PM C DT Body Mass Index 57.8 08/28/2018 1:48 PM CDT documented in this encounter Progress Notes * Vanden Hoek, Tierra, INSTRUCTIONAL COORDINATOR - 08/28/2018 1:30 PM CDT Oncology Progress Note REASON FOR VISIT: Stage II, ER positive, HER2 negative breast cancer, currently on exemestane. Oncology History 1. Routine screening mammogram on 07/01/2014 demonstrated [...] in the left carcinoma were ER 8, AK 8, HER-2 negative. 3. Cytology on 07/21/2014 [...] to 4 cm, nuclear grade 2, and 317 lymph nodes positive. The largest focus 1.3 [...] left female breast (CMS/HCC) Subjective Interval History Ms. Marques presents here today for routine oncologic care. She continues on exemestane for her breast cancer. She reports that over the last month she has developed pretty severe hot flashes. These routinely wake her at night and are sometimes accompanied by nausea. She also reports that over the last month or so she has had new headaches that occur apx once every two days that she describes as bolts of sharp pain . These do not last long and self resolve. She denies any gait difficulties or motor weaknesses. She continues to have persistent back pain, due to multiple bulging discs and stenosis of the lumbar spine. She sees pain management and gets occasional steroid injections to manage this. She is now on insulin for her diabetes. 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 She recentlyhad biopsy of some thyroid nodules with returned benign. She denies any changes in her breasts or chest wall or any new areas of focal pain. Review of Systems: A complete ROS was performed and positive for that noted in the above interval history. All other systems negative. Allergies Allergen Reactions ??? Ceftriaxone Anaphylaxis R ??? Cephalosporins Anaphylaxis ??? Lorazepam Unknown Aggrevates restless leg syndrome ??? Latex Rash ??? Piperacillin-Tazobactam Rash ??? Metoclopramide Hcl Unknown ??? Ketorolac Itching ??? Metoclopramide Other (See comments) Other reaction(s): Hyperactive Restless leg syndrome ??? Oxycodone Vomiting ??? Trazodone Other (See comments) Shaky, restlessness, itching, throat swelling Outpatient Encounter Medications as of 08/28/2018: ??? amitriptyline (ELAVIL) 25 mg tablet, , Disp: , Rfl: ??? exemestane (AROMASIN) 25 mg tablet, Take 1 tablet (25 mg total) by mouth daily. After a meal, Disp: 90 tablet, Rfl: 3 ??? HYDROcodone-acetaminophen (NORCO) 5-325 mg per tablet, Take by mouth., Disp: , Rfl: ??? insulin glargine (LANTUS) 100 unit/mL injection, Inject 40 Units under the skin daily. Takes inthe morning, Disp: , Rfl: ??? insulin lispro (HumaLOG) 100 unit/mL injection, Inject 12 Units under the skin 3 (three) times a day before meals., Disp: , Rfl: ??? lancets (ONETOUCH DELClinicient LANCETS) 33 gauge misc, by Not Applicable route 4 times daily, Disp: ,Rfl: ??? lisinopril (PRINIVIL,ZESTRIL) 20 mg tablet, Take 20 mg by mouth., Disp: , Rfl: ??? oxybutynin (DITROPAN) 5 mg tablet, take 1 tablet by oral route every day, Disp: 0, Rfl: 0 ??? polyethylene glycol (MIRALAX) 17 gram/dose powder, Mix 1 scoop (17 g) in 8 oz of water and drink daily., Disp: 527 g, Rfl: 0 ??? rivaroxaban (XARELTO) 20 mg tablet, Take 1 tablet (20 mg total) by mouth daily. After Dinner, Disp: 30 tablet, Rfl: 0 ??? rOPINIRole (REQUIP) 5 mg tablet, Take 5 mg by mouth., Disp: , Rfl: ??? TRUEPLUS PEN NEEDLE 31 gauge x 5/16 needle, , Disp: , Rfl: ??? atorvastatin (LIPITOR) 10 mg tablet, Take 1 tablet (10 mg total) by mouth nightly. (Patient nottaking: Reported on 08/07/2018), Disp: 30 tablet, Rfl: 0 ??? clonazePAM (KlonoPIN) 1 mg tablet, Take 1 tablet (1 mg total) by mouth 2 (two) times a day for 10 days ., Disp: 20 tablet, Rfl: 0 ??? diazePAM (VALIUM) 5 mg tablet, Take 1 tablet (5 mg total) by mouth every 8 (eight) hours as needed for anxiety. (Patient not taking: Reported on 08/07/2018), Disp: 10 tablet, Rfl: 0 ??? diphenhydrAMINE (diphenhydrAMINE) 25 mg capsule, Take 1 tablet/capsule (25 mg total) by mouth every 6 (six) hours as needed for itching . (Patient not taking: Reported on 08/07/2018), Disp: 20 capsule, Rfl: 0 ??? gabapentin (NEURONTIN) 300 mg capsule, Take 300 mg by mouth 3 times daily, Disp: , Rfl: ??? hydrOXYzine (ATARAX) 25 mg tablet, Take 1 tablet (25 mg total) by mouth 4 (four) times a day asneeded for itching or anxiety (TONGUE SWELLING) Indications: anxious. (Patient not taking: Reportedon 08/28/2018), Disp: 20 tablet, Rfl: 0 ??? nitrofurantoin monohydrate (MACROBID) 100 mg capsule, Take 1 capsule (100 mg total) by mouth 2 (two) times a day. (Patient not taking: Reported on 08/07/2018), Disp: 10 capsule, Rfl: 0 ??? oxyCODONE-acetaminophen (PERCOCET) 5-325 mg per tablet, Take 1 tablet by mouth every 6 (six) hours as needed for pain. (Patient not taking: Reported on 08/07/2018), Disp: 6 tablet, Rfl: 0 ??? rivaroxaban (XARELTO) 20 mg tablet, Take 1 tablet (20 mg total) by mouth daily (Patient not taking: Reported on 08/28/2018), Disp: 30 tablet, Rfl: 0 ??? sitaGLIPtin-metformin (JANUMET) 50-1,000 mg per tablet, Take 1 tablet by mouth, Disp: , Rfl: Past Medical History: Diagnosis [...] 10/24/2014 Objective Vitals: Most Recent : BP: 145/83 Temp: 36.7 ??C (98.1 ??F) Temp src: Oral Pulse: 97 Resp: 18 SpO2: 97 % Height: 151.3 cm (4' 11.57 ) Weight: 132.3 kg (291 lb 11.2 oz) Physical Exam: Performance Status: ECOG 1 [...] nontender, nondistended. No hepatosplenomegaly. Extremities: No edema. Radial pulses 2+. Breasts: Shows surgically absent breasts. No signs of local recurrence. Lab/Radiology/Diagnostic Review: CBC: Hematology Lab History Some values may be hidden. Unless noted otherwise, only the newest values recorded on each date aredisplayed. Labs - Hematology Latest Ref Range 02/24/18 03/17/18 06/27/18 08/28/18 WBC 3.8 - 9.8 K/cumm 12.3 (A) 11.3 (A) 11.6 (A) 11.1 (A) Total Hb, POC 12.1 - 15.1 g/dL 11.4 (A) 12.1 13.6 12.4 Hct 36.1 - 44.3 % 37.4 39.0 44.5 38.8 Plt 140 - 440 K/cumm 324 300 352 326 Neutrophil abs 1.8 - 6.6 K/cumm 7.4 (A) 7.6 (A) 7.8 (A) 7.2 (A) (A) Abnormal value Comments are available for some flowsheets but are not being displayed. CMP: Lab Results Component Value Date/Time SODIUM 139 08/28/2018 01:21 PM POTASSIUM 4.3 08/28/2018 01:21 PM CO2 28 08/28/2018 01:21 PM BUNSER 17 08/28/2018 01:21 PM GLUCOSE 118 08/28/2018 01:21 PM CREATININE 0.74 08/28/2018 01:21 PM CALCIUM 10.0 08/28/2018 01:21 PM CHLORIDE 103 08/28/2018 01:21 PM ALBUMIN 3.8 08/28/2018 01:21 PM AST 30 08/28/2018 01:21 PM ALT 27 08/28/2018 01:21 PM ALKPHOS 87 08/28/2018 01:21 PM BILITOT 0.4 08/28/2018 01:21 PM PROT 8.4 08/28/2018 01:21 PM ANIONGAP 8 08/28/2018 01:21 PM Radiology: None for this visit. Assessment/Plan Karly Marques is a 63 y.o. female with stage II, ER positive, HER2 negative breast cancer on adjuvant exemestane. After discussion with Dr. Arthur, she will continue on exemestane, she will try vitamin E for her hot flashes, and she [...] for ongoing follow up in six months. She was encouraged to call prior to her next ROV with any questions or concerns. Marlyn Gilliam NP Cosigned by Khris Arthur MD at 08/28/2018 3:11 PM CDT documented in this encounter Plan of Treatment Not on file documented as of this encounter Visit Diagnoses Diagnosis Malignant neoplasm of overlapping sites of left female breast, unspecified estrogen receptor status (HCC)- Primary documented in this encounter Care Teams Sheet Metal Worker Maintenance Relationship Specialty Start Date End Date Justen Gale MD [address] [address] PCP - General 10/09/17 Liu Jerez MD Consulting Physician Gastroenterology 07/28/17 [place] [id number] [place] [address] Consulting Physician Pulmonary Disease 08/03/17 [place] [address] [place] [address] [address] [place] [address] Medical Oncologist/Video Production Engineer Medical Oncology 10/23/17 [place] [address] [address] Surgeon Orthopedic Surgery 10/23/17 [place] [address] [address] Consulting Physician Pain Management 10/23/17 [place] [address] [address] Referring Physician General Surgery 01/26/18 [place] [address] [address] Consulting Physician Neurology 01/26/18 documented as of this encounter
--- OUTSIDE RECORDS SUMMARY | 2024-04-26 04:24 | XMS_ITS | Encounter Summary ---
Author Organization [facility] Address [address] [place] [address] Phone Care Team Providers Care Geologic Technician Name Role Phone Liu Jerez MD Unavailable Albert Corbin MD Unavailable [phone] Justen Gale MD Primary Care Provider Khris Arthur MD Unavailable [phone] Ko Melendez MD Unavailable John Paul Moyer MD Unavailable [phone] Annel Rod MD Unavailable Anali MARSHALL MD, Carlos M. 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 Gender Identity Not on file Sexual Orientation Not on file documented as of this encounter Plan of Treatment Not on file documented as of this encounter Visit Diagnoses Diagnosis Malignant neoplasm of upper-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, unspecified estrogen receptor status (HCC)- Primary documented in this encounter Care Teams Geologic Technician Relationship Specialty Start Date End Date Justen Gale MD [address] [address] PCP - General 10/09/17 Liu Jerez MD Consulting Physician Gastroenterology 07/28/17 [place] [address] [address] [facility] [address] [place] [address] Consulting Physician Pulmonary Disease 08/03/17 Khris Arthur MD [address] [facility] [address] [place] [address] Medical Oncologist/Mainspring Barrel Assembly Cleaner Medical Oncology 10/23/17 [place] [address] [address] [facility] [address] [place] [address] Surgeon Orthopedic Surgery 10/23/17 [place] [address] [address] [facility] [address] [place] [address] Consulting Physician Pain Management 10/23/17 [place] [address] [facility] [address] [place] [address] Referring Physician General Surgery 01/26/18 [place] [address] [facility] [address] [place] [address] Consulting Physician Neurology 01/26/18 documented as of this encounter
--- OUTSIDE RECORDS SUMMARY | 2024-04-26 04:24 | XMS_ITS | Encounter Summary ---
Author Organization [facility] Address [address] [place] [address] Phone Care Team Providers Care Principal Engineer Name Role Phone Liu Jerez MD Unavailable Albert Corbin MD Unavailable Justen Gale MD Primary Care Provider [phone] Khris Arthur MD Unavailable [phone] Ko Melendez MD Unavailable John Paul Moyer MD Unavailable Annel Rod MD Unavailable Anali MARSHALL MD, Carlos M. Unavailable Encounter Details Date Type Department Care Team (Late st Contact Info) Description 02/18/2020 Orders Only [facility] Oncology [address] [facility] 7th [place] [address] [place] [address] Khris Arthur MD [address] [facility] [address] [place] [address] Social History Tobacco Use Types Packs/Day Years Used Date Smoking Tobacco: Former Smokeless Tobacco: Never Comments:remote tobacco use Alcohol Use Standard Drinks/Week Comments No 0 (1 standard drink = 0.6 oz pur e alcohol) PHQ-2 Answer Date Recorded PHQ-2 Score 1 12/15/2018 Comments No Sex and Gender Information Value Date Recorded Sex Assigned at Not on file 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 Gender Identity Not on file Sexual Orientation Not on file documented as of this encounter Plan of Treatment Not on file documented as of this encounter Visit Diagnoses Not on filedocumented in this encounter Care Teams Principal Engineer Relationship Specialty Start Date End Date Justen Gale MD 2 [facility] [address] [place] [address] PCP - General 10/09/17 Liu Jerez MD Consulting Physician Gastroenterology 07/28/17 [place] [address] [id number] [place] [address] Consulting Physician Pulmonary Disease 08/03/17 Khris Arthur MD [address] [facility] [address] [place] [address] Medical Oncologist/Assembly Line Worker Medical Oncology 10/23/17 [place] [address] [address] Surgeon Orthopedic Surgery 10/23/17 [place] [address] [facility] [facility] [address] [place] [address] Consulting Physician Pain Management 10/23/17 [place] [address] [facility] [facility] [address] [place] [address] Referring Physician General Surgery 01/26/18 [place] [address] [facility] [facility] [address] [place] [address] Consulting Physician Neurology 01/26/18 documented as of this encounter
--- OUTSIDE RECORDS SUMMARY | 2024-04-26 04:24 | XMS_ITS | Encounter Summary ---
Author Organization [facility] Address [address] [place] [address] Phone Care Team Providers Care Commanding Officer Motorized Squad Name Role Phone Liu Jerez MD Unavailable Albert Corbin MD Unavailable Justen Gale MD Primary Care Provider [phone] Khris Arthur MD Unavailable [phone] Ko Melendez MD Unavailable John Paul Moyer MD Unavailable Annel Rod MD Unavailable Anali MARSHALL MD, Carlos M. 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 Patient stated she was open to any day and time and preferred the CAM location. I rescheduled her for 07/30/19 and left message with appointment details. Provided call backnumber. I will be mailing her itinerary. ROAD INSPECTOR documented in this encounter Plan of Treatment Not on file documented as of this encounter Visit Diagnoses Not on filedocumented in this encounter Care Teams Commanding Officer Motorized Squad Relationship Specialty Start Date End Date Justen Gale MD 2 [facility] [address] [place] [address] PCP - General 10/09/17 Liu Jerez MD Consulting Physician Gastroenterology 07/28/17 [place] [address] [facility] [address] [place] [address] Consulting Physician Pulmonary Disease 08/03/17 Khris Arthur MD [address] [place] [address] [address] [place] [address] Medical Oncologist/Lining Feller Blindstitch Medical Oncology 10/23/17 [place] [address] [facility] [address] [place] [address] Surgeon Orthopedic Surgery 10/23/17 [place] [address] [facility] [address] [place] [address] Consulting Physician Pain Management 10/23/17 [place] [address] [facility] [address] [place] [address] Referring Physician General Surgery 01/26/18 [place] [address] [facility] [address] [place] [address] Consulting Physician Neurology 01/26/18 documented as of this encounter
--- OUTSIDE RECORDS SUMMARY | 2024-04-26 04:24 | XMS_ITS | Encounter Summary ---
Author Organization [facility] Address [address] [place] [address] Phone Care Team Providers Care Special Procedures Tech Name Role Phone Liu Jerez MD Unavailable Albert Corbin MD Unavailable uJsten Gale MD Primary Care Provider [phone] Khris Arthur MD Unavailable [phone] Ko Melendez MD Unavailable John Paul Moyer MD Unavailable Annel Rod MD Unavailable Anali MARSHALL MD, Carlos M. Unavailable Encounter Details Date Type Department Care Team (Late st Contact Info) Description 02/17/2020 Telephone [facility] Oncology [address] 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 Returned her call, she was unavailable. [facility] offering to do telephone visit tomorrow instead of in-person since Karly has missed/rescheduled numerous appointments. Asked for call back to let us know if she is interested. Otherwise, can reschedule for a later date. documented in this encounter Plan of Treatment Not on file documented as of this encounter Visit Diagnoses Not on filedocumented in this encounter Care Teams Special Procedures Tech Relationship Specialty Start Date End Date Justen Gale MD 2 [facility] [address] [place] [address] PCP - General 10/09/17 Liu Jerez MD Consulting Physician Gastroenterology 07/28/17 [place] [address] [facility] [address] [place] [address] Consulting Physician Pulmonary Disease 08/03/17 [place] [address] [place] [address] [address] [place] [address] Medical Oncologist/Research Archaeologist Medical Oncology 10/23/17 [place] [address] [facility] [address] [place] [address] Surgeon Orthopedic Surgery 10/23/17 [place] [address] [address] Consulting Physician Pain Management 10/23/17 [place] [address] [address] Referring Physician General Surgery 01/26/18 [place] [address] [facility] [address] [place] [address] Consulting Physician Neurology 01/26/18 documented as of this encounter
--- OUTSIDE RECORDS SUMMARY | 2024-04-26 04:24 | XMS_ITS | Encounter Summary ---
Author Organization [facility] Address [address] [place] [address] Phone Care Team Providers Care Tool Mechanic Name Role Phone Liu Jerez MD Unavailable [phone] Albert Corbin MD Unavailable Justen Gale MD Primary Care Provider Khris Arthur MD Unavailable [phone] Ko Melendez MD Unavailable John Paul Moyer MD Unavailable Annel Rod MD Unavailable Anali MARSHALL MD, Carlos M. 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 Rescheduled missed rov from 02/2019. Patient states she hastorn 2 tendons in her foot and is unable to ambulate easily. She is scheduled for surgery on 05/01/19followed by 3 weeks of bed rest. NG MACHINE ASSEMBLER documented in this encounter Plan of Treatment Not on file documented as of this encounter Visit Diagnoses Not on filedocumented in this encounter Care Teams Tool Mechanic Relationship Specialty Start Date End Date Justen Gale MD [address] [address] PCP - General 10/09/17 Liu Jerez MD Consulting Physician Gastroenterology 07/28/17 [place] [address] [facility] [address] [place] [address] Consulting Physician Pulmonary Disease 08/03/17 Khris Arthur MD [address] [facility] [address] [place] [address] Medical Oncologist/Nutrition Program Instructor Medical Oncology 10/23/17 [place] [address] [facility] [address] [place] [address] Surgeon Orthopedic Surgery 10/23/17 [place] [address] [address] Consulting Physician Pain Management 10/23/[address] [place] [address] [facility] [address] [place] [address] Referring Physician General Surgery 01/26/18 [place] [address] [facility] [address] [place] [address] Consulting Physician Neurology 01/26/18 documented as of this encounter
--- OUTSIDE RECORDS SUMMARY | 2024-04-26 04:24 | XMS_ITS | Encounter Summary ---
Author Organization [facility] Address [address] [place] [address] Phone Care Team Providers Care Watch Engine Operator Name Role Phone Liu Jerez MD Unavailable [phone] Albert Corbin MD Unavailable Justen Gale MD Primary Care Provider Khris Arthur MD Unavailable [phone] Ko Melendez MD Unavailable John Paul Moyer MD Unavailable Annel Rod MD Unavailable Anali MARSHALL MD, Carlos M. Unavailable Encounter Details Date Type Department Care Team (Late st Contact Info) Description 03/04/2019 Orders Only [facility] Endocrinology Metabolism and Lipid [address] 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 omeprazole (PriLOSEC) 40 mg capsule Take 40 mg by mouth daily 09/07/2018 10/29/2020 lidocaine (LIDODERM) 5 % PLACE 1 PATCH ONTO THE SKIN D FOR 30 DAYS. REMOVE AND DISCARD PATCH WITHIN 12 HOURS OR UTD BY MD 0 12/12/2018 10/29/[address] (VOLTAREN) 75 mg EC tablet Take 75 mg by mouth 2 (two) times a day as needed 01/17/2019 10/29/2020 ONETOUCH ULTRA BLUE TEST STRIP strip TEST QID 3 12/04/2018 10/29/2020 added in this encounter Care Teams Watch Engine Operator Relationship Specialty Start Date End Date Justen Gale MD 2 [facility] [address] [place] [address] PCP - General 10/09/17 Liu Jerez MD Consulting Physician Gastroenterology 07/28/[address] [place] [address] [facility] [address] [place] [address] Consulting Physician Pulmonary Disease 08/03/17 [place] [address] [place] [address] [address] [place] [address] Medical Oncologist/Media Reporter Medical Oncology 10/23/[address] [place] [address] [facility] [address] [place] [address] Surgeon Orthopedic Surgery 10/23/17 [place] [address] [facility] [address] [place] [address] Consulting Physician Pain Management 10/23/[address] [place] [address] [facility] [address] [place] [address] Referring Physician General Surgery 01/26/18 [place] [address] [facility] [address] [place] [address] Consulting Physician Neurology 01/26/18 documented as of this encounter
--- OUTSIDE RECORDS SUMMARY | 2024-04-26 04:24 | XMS_ITS | Encounter Summary ---
Author Organization [facility] Address [address] [place] [address] Phone Care Team Providers Care Adjuster Leader Name Role Phone Liu Jerez MD Unavailable Albert Corbin MD Unavailable Justen Gale MD Primary Care Provider Khris Arthur MD Unavailable [phone] Ko Melendez MD Unavailable John Paul Moyer MD Unavailable [phone] Annel Rod MD Unavailable Anali MARSHALL MD, Carlos M. 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[employer] Gender Identity Not on file Sexual Orientation Not on file documented as of this encounter Miscellaneous Notes * Telephone Encounter - Molly Lombardi LPN - 08/22/2018 12:10 PM CDT Pt aware * Telephone Encounter - Rj Phillips MD - 08/22/2018 12:06 PM CDT Please advise to watch for next 24-48 hrs , use tylenol for pain and ice packs for tenderness as instruction given in writings to patient Bruises is expected Advise her to call back if any worsening symptoms in th next 24 hrs and arrange for her to return to clinic for examination and bedside US if felt necessary Thanks Rj Phillips MD * Telephone Encounter - Molly Lombardi LPN - 08/22/2018 10:22 AM CDT Pt had an FNA with you yesterday. She said the area that was biopsied was bruised, and raised to the size of a silver dollar. Also very tender to the touch. She wanted to know if this was normal? Also wanted to let you know that she has a history of blood clots. documented in this encounter Plan of Treatment Not on file documented as of this encounter Visit Diagnoses Not on filedocumented in this encounter Care Teams Adjuster Leader Relationship Specialty Start Date End Date Justen Gale MD 2 [place] [address] PCP - General 10/09/17 Liu Jerez MD Consulting Physician Gastroenterology 07/28/17 [place] [address] [facility] [address] [place] [address] Consulting Physician Pulmonary Disease 08/03/17 Khris Arthur MD [address] [facility] [address] [place] [address] Medical Oncologist/Diving Coach Medical Oncology 10/23/17 [place] [address] [facility] [address] [place] [address] Surgeon Orthopedic Surgery 10/23/17 [place] [address] [facility] [address] [place] [address] Consulting Physician Pain Management 10/23/17 [place] [address] [facility] [address] [place] [address] Referring Physician General Surgery 01/26/18 [place] [address] [facility] [address] [place] [address] Consulting Physician Neurology 01/26/18 documented as of this encounter
--- OUTSIDE RECORDS SUMMARY | 2024-04-26 04:24 | XMS_ITS | Encounter Summary ---
Author Organization [facility] Care Team Providers Care Settlement Clerk Name Role Phone Liu Jerez MD Unavailable [phone] Albert Corbin MD Unavailable Jutsen Gale MD Primary Care Provider [phone] Khris Arthur MD Unavailable [phone] Ko Melendez MD Unavailable [phone] John Paul Moyer MD Unavailable Annel Rod MD Unavailable Anali MARSHALL MD, Carlos M. 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 Gender Identity Not on file Sexual Orientation Not on file documented as of this encounter Plan of Treatment Not on file documented as of this encounter Visit Diagnoses Not on filedocumented in this encounter Care Teams Settlement Clerk Relationship Specialty Start Date End Date Justen Gale MD 2 [facility] [address] [place] [address] PCP - General 10/09/17 Liu eJrez MD Consulting Physician Gastroenterology 07/28/17 [place] [address] [facility] [address] [place] [address] Consulting Physician Pulmonary Disease 08/03/17 Khris Arthur MD 4921 [facility] [address] [place] [address] Medical Oncologist/Dehydrogenation Operator Head Medical Oncology 10/23/17 [place] [address] [facility] [address] [place] [address] Surgeon Orthopedic Surgery 10/23/17 [place] [address] [facility] [address] [place] [address] Consulting Physician Pain Management 10/23/17 [place] [address] [facility] [address] [place] [address] Referring Physician General Surgery 01/26/18 [place] [address] [facility] [address] [place] [address] Consulting Physician Neurology 01/26/18 documented as of this encounter
--- OUTSIDE RECORDS SUMMARY | 2024-04-26 04:24 | XMS_ITS | Encounter Summary ---
Author Organization [facility] Address [address] [place] [address] Phone Care Team Providers Care Floral Clerk Name Role Phone Liu Jerez MD Unavailable [phone] Albert Corbin MD Unavailable Justen Gale MD Primary Care Provider Khris Arthur MD Unavailable [phone] Ko Melendez MD Unavailable John Paul Moyer MD Unavailable Annel Rod MD Unavailable Anali MARSHALL MD, Carlos M. 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 Arthur. Provided call back number. Will await for phone call. ELING SALES REPRESENTATIVE documented in this encounter Plan of Treatment Not on file documented as of this encounter Visit Diagnoses Not on filedocumented in this encounter Care Teams Floral Clerk Relationship Specialty Start Date End Date Justen Gale MD [address] [address] PCP - General 10/09/17 Liu Jerez MD Consulting Physician Gastroenterology 07/28/17 [place] [address] [facility] [address] [place] [address] Consulting Physician Pulmonary Disease 08/03/17 Khris Arthur MD 4921 [facility] [address] [place] [address] Medical Oncologist/Flange Machine Operator Medical Oncology 10/23/17 [place] [address] [facility] [address] [place] [address] Surgeon Orthopedic Surgery 10/23/17 [place] [address] [address] Consulting Physician Pain Management 10/23/17 [place] [address] [address] Referring Physician General Surgery 01/26/18 [place] [address] [facility] [address] [place] [address] Consulting Physician Neurology 01/26/18 documented as of this encounter
--- OUTSIDE RECORDS SUMMARY | 2024-04-26 04:24 | XMS_ITS | Encounter Summary ---
Author Organization [facility] Address [address] [place] [address] Phone Care Team Providers Care Precision Optics Technician Name Role Phone Liu Jerez MD Unavailable Albert Corbin MD Unavailable [phone] Justen Gale MD Primary Care Provider Khris Arthur MD Unavailable [phone] Ko Melendez MD Unavailable John Paul Moyer MD Unavailable Annel Rod MD Unavailable Anali MARSHALL MD, Carlos M. 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 Patient stated she has not had foot surgery yet but it is pending. She will know the date tomorrow and will call our office to let us know if she can keep scheduled appointments or will need to reschedule dexa and rov. MY CARE NURSE documented in this encounter Plan of Treatment Not on file documented as of this encounter Visit Diagnoses Not on filedocumented in this encounter Care Teams Precision Optics Technician Relationship Specialty Start Date End Date Justen Gale MD [address] [address] PCP - General 10/09/17 Liu Jerez MD Consulting Physician Gastroenterology 07/28/17 [place] [address] [facility] [address] [place] [address] Consulting Physician Pulmonary Disease 08/03/17 Khris Arthur MD 4921 [facility] [address] [place] [address] Medical Oncologist/Fios Line Installer Medical Oncology 10/23/17 [place] [address] [facility] [address] [place] [address] Surgeon Orthopedic Surgery 10/23/17 [place] [address] [address] Consulting Physician Pain Management 10/23/17 [place] [address] [facility] [address] [place] [address] Referring Physician General Surgery 01/26/18 [place] [address] [facility] [address] [place] [address] Consulting Physician Neurology 01/26/18 documented as of this encounter
--- OUTSIDE RECORDS SUMMARY | 2024-04-26 04:24 | XMS_ITS | Encounter Summary ---
Author Organization [facility] Address [address] [place] [address] Care Team Providers Care Account Executive Software Sales Name Role Phone Liu Jerez MD Unavailable [phone] Albert Corbin MD Unavailable Justen Gale MD Primary Care Provider Khris Arthur MD Unavailable [phone] Ko Melendez MD Unavailable [phone] John Palu Moyer MD Unavailable Annel Rod MD Unavailable Anali MARSHALL MD, Carlos M. Unavailable Encounter Details Date Type Department Care Team (Late st Contact Info) Description 08/21/2018 Orders Only [facility] [address] [place] [address] Rj Phillips MD [address] [address] [phone] (work) Social History Tobacco Use Types Packs/Day Years Used Date Smoking Tobacco: Former Smokeless Tobacco: Never Comments:remote tobacco use Alcohol Use Standard Drinks/Week Comments No 0 (1 standard drink = 0.6 oz pur e alcohol) Comments No Sex and Gender Information Value Date Recorded Sex Assigned at Not on file 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 Gender Identity Not on file Sexual Orientation Not on file documented as of this encounter Plan of Treatment Not on file documented as of this encounter Procedures Procedure Name Priority Date/Time Associated Diagnosis Comments CYTOLOGY Routine 08/21/2018 10:45 AM CDT documented in this encounter Results * Cytology (08/21/2018 10:45 AM CDT) 08/21/2018 10:4 5 AM CDT 08/21/2018 12:32 PM CDT Narrative 08/23/2018 5:09 PM CDT EPIC results best viewed via link to PDF [facility] [place], [place] [id number] CYTOPATHOLOGY REPORT FINAL Patient Name: ?? MOHSEN SALAZAR Gender: ??F : ??1955 (Age: 63) Address: ??[address], [place], [place] ??[address] [facility] #: ??[id number] Taken:08/21/2018 Received:08/21/2018 Reported: 08/23/2018 Patient Type: [facility] Ancillary ?? Service: Radiology Location: [facility] Physician(s): ??Rj Phillips M.D. FINAL DIAGNOSIS A. ??Thyroid, left lobe, ultrasound guided fine needle aspiration: ? - Benign follicular nodule B. ??Thyroid, right lobe,ultrasound guided fine needle aspiration: ? - Benign follicular nodule hxk/08/22/2018 16:22 By this signature, I attest that the above diagnosis is based upon my personal examination of the slides(and/or other material indicated in the diagnosis). Ochoa Boo M.D. Report Electronically Reviewed and Signed Out By ??Ochoa Boo M.D. 08/23/2018 17:09:26 Kojo Cruz, CT(ASCP), CFIAC Gross Description A. ??Thyroid, left lobe, ultrasound guided fine needle aspiration: ??4 Pap stained smear(s) and 4 Diff-Quik stained smear(s). ??1 ThinPrep prepared from needle rinse tube. ??Aspirated by clinician. ??(rs) ? B. ??Thyroid, right lobe,ultrasound guided fine needle aspiration: ?4 Pap stained smear(s) and 4 Diff-Quik stained smear(s). ??1 ThinPrep prepared from needle rinse tube. ??Aspirated by clinician. ??(rs) Clinical Diagnosis and History The patient is a 63 year old woman with thyroid nodules. By this signature, I attest that the above diagnosis is based upon my personal examination of the slides(and/or other material). REPORT IMAGES AND SCANNED DOCUMENTS, IF INCLUDED, ONLY VIEWABLE IN PDF VERSION OF REPORT The performance characteristics of some immunohistochemical stains, in-situ hybridization and fluorescence in-situ hybridization tests and immunophenotyping by flow cytometry cited in this report (if any) were determined by the Surgical Pathology Department at [facility] as part of an ongoing air quality instrument specialist program and in compliance with federally mandated regulations drawn from the Clinical Laboratory Improvement Act of 1988 (CLIA '88). ??Some of these tests rely on the use of analyte specific reagents and are subject to specific labeling requirements by the US Food and Drug Administration. ??Such diagnostic tests may only be performed in a facility that is certified by the Department of Health and Human Services as a high complexity laboratory under CLIA '88. ??The FDA has determined that such clearance or approval is not necessary. ??This test is used for clinical purposes. ??It should not be regarded as investigational or for research. ??Nevertheless, federal rules concerning the medical use of analyte specific reagents require that the following disclaimer be attached to the report: ??This test was developed and its performance characteristics determined by the Surgical Pathology Department of [facility]. ??It has not been cleared or approved by the U. S. Food and Drug Administration. Rj Phillips MD LAB CYTOLOGY ORDERABLES Final R esult documented in this encounter Visit Diagnoses Not on filedocumented in this encounter Care Teams Account Executive Software Sales Relationship Specialty Start Date End Date Justen Gale MD 2 [facility] [address] [place] [address] PCP - General 10/09/17 Liu Jerez MD Consulting Physician Gastroenterology 07/28/17 [place] [address] [facility] [address] [place] [address] Consulting Physician Pulmonary Disease 08/03/17 Khris Arthur MD 4921 [facility] [address] [place] [address] Medical Oncologist/Coating Mixer Tender Medical Oncology 10/23/17 [place] [address] [facility] [address] [place] [address] Surgeon Orthopedic Surgery 10/23/17 [place] [address] [facility] [address] [place] [address] Consulting Physician Pain Management 10/23/17 [place] [address] [facility] [address] [place] [address] Referring Physician General Surgery 01/26/18 [place] [address] [facility] [address] [place] [address] Consulting Physician Neurology 01/26/18 documented as of this encounter
--- OUTSIDE RECORDS SUMMARY | 2024-04-26 04:24 | XMS_ITS | Encounter Summary ---
Author Organization [facility] Address [address] [place] [address] Phone Care Team Providers Care Malt Roaster Name Role Phone Liu Jerez MD Unavailable Albert Corbin MD Unavailable Justen Gale MD Primary Care Provider Khris Arthur MD Unavailable [phone] Ko Melendez MD Unavailable John Paul Moyer MD Unavailable Annel Rod MD Unavailable Anali MARSHALL MD, Carlos M. 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 Camarillo is being rescheduled due tofacility regulations surrounding COVID-19. She knows to call us back if she has any new or worrisome symptoms she needs to discuss. Otherwise, our office will send itinerary to her home after new appointment made. documented in this encounter Plan of Treatment Not on file documented as of this encounter Visit Diagnoses Not on filedocumented in this encounter Care Teams Malt Roaster Relationship Specialty Start Date End Date Justen Gale MD 2 [facility] [address] [place] [address] PCP - General 10/09/17 Liu Jerez MD Consulting Physician Gastroenterology 07/28/17 [place] [address] [facility] [address] [place] [address] Consulting Physician Pulmonary Disease 08/03/17 Khris Arthur MD 4921 [facility] [address] [place] [address] Medical Oncologist/Pmo Project Manager Medical Oncology 10/23/17 [place] [address] [facility] [address] [place] [address] Surgeon Orthopedic Surgery 10/23/17 [place] [address] [address] Consulting Physician Pain Management 10/23/17 [place] [address] [facility] [address] [place] [address] Referring Physician General Surgery 01/26/18 [place] [address] [facility] [address] [place] [address] Consulting Physician Neurology 01/26/18 documented as of this encounter
--- OUTSIDE RECORDS SUMMARY | 2024-04-26 04:25 | XMS_ITS | Encounter Summary ---
Author Organization [facility] Address [address] [place] [address] Phone Care Team Providers Care Property Damage Claims Adjustor Name Role Phone Liu Jerez MD Unavailable Albert Corbin MD Unavailable Justen Gale MD Primary Care Provider Khris Arthur MD Unavailable [phone] Ko Melendez MD Unavailable John Paul Moyer MD Unavailable Annel Rod MD Unavailable Anali MARSHALL MD, Carlos M. 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 Karly Marques 57 called regarding an abnormal us of thyroid that was ordered by pcp and he recommended to have a biopsy. She wants to know if we can refer her to a Dr here in order for her to have the biopsy done here. Tana put a note in [employer] stating they are supposed to be sending us results. But upon checking I do not have it in [employer] under media. Call back number . Letme know if you need me to call her primary to request them again and if you need me to refer her. [place] received above message. Attempted to call back patient and unable to speak to her. Called PCP. Ms Marques already called primary to ask for a referral to [facility]. Nurse I spoke to already put the referral in. GNER AND PATTERNMAKER documented in this encounter Plan of Treatment Not on file documented as of this encounter Visit Diagnoses Not on filedocumented in this encounter Care Teams Property Damage Claims Adjustor Relationship Specialty Start Date End Date Justen Gale MD [address] [address] PCP - General 10/09/17 Liu Jerez MD Consulting Physician Gastroenterology 07/28/17 [place] [address] [place] [id number] [place] [address] Consulting Physician Pulmonary Disease 08/03/17 Khris Arthur MD [address] [facility] [address] [place] [address] Medical Oncologist/Oracle Engineer Medical Oncology 10/23/17 [place] [address] [address] [facility] [address] [place] [address] Surgeon Orthopedic Surgery 10/23/17 [place] [address] [address] [facility] [address] [place] [address] Consulting Physician Pain Management 10/23/17 [place] [address] [address] [facility] [address] [place] [address] Referring Physician General Surgery 01/26/18 [place] [address] [address] [facility] [address] [place] [address] Consulting Physician Neurology 01/26/18 documented as of this encounter
--- OUTSIDE RECORDS SUMMARY | 2024-04-26 04:25 | XMS_ITS | Encounter Summary ---
Author Organization [facility] Healthcare Address [address] [place] [address] Care Team Providers Care Psychologist Experimental Name Role Phone Liu Jerez MD Unavailable [phone] Albert Corbin MD Unavailable Justen Gale MD Primary Care Provider Khris Arthur MD Unavailable [phone] Ko Melendez MD Unavailable [phone] John Paul Moyer MD Unavailable Annel Rod MD Unavailable Anali MARSHALL MD, Carlos M. Unavailable [phone] Encounter Details Date Type Department Care Team (Latest Contact Info) Description 02/24/2018 12:38 AM CDT - 02/24/2018 11:59 PM CDT Hospital Encounter [facility] Diagnostic Imaging [address] [place] [address] Discharge Disposition: Discharge to home or self care Social History Tobacco Use Types Packs/Day Years Used Date Smoking Tobacco: Former Smokeless Tobacco: Never Comments:remote tobacco use Alcohol Use Standard Drinks/Week Comments No 0 (1 standard drink = 0.6 oz pur e alcohol) Comments No Sex and Gender Information Value Date Recorded Sex Assigned at Not on file 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 30 tablet 01/26/2018 1 exemestane (AROMASIN) 25 mg tablet TAKE 1 TABLET BY MOUTH DAILY, AFTER A MEAL 30 tablet 02/20/2018 8 HYDROcodone-aceta minophen (NORCO) 5-325 mg per tabletIndications :Pain Take by mouth. 01/01/2018 2 insulin glargine [...] times a day. 10 capsule 02/24/2018 1 oxybutynin (DITROPAN) 5 mg tablet take 1 tablet by oral route every day 0 0 12/12/2013 3 polyethylene glycol (MIRALAX) 17 gram/dose powder Mix 1 scoop (17 g) in 8 oz of water and drink daily. 527 g 08/15/2017 1 rivaroxaban (XARELTO) 20 mg tablet Take 20 mg by mouth. 08/08/2017 8 XARELTO 20 mg tabletIndications :Other pulmonary embolism without acute cor pulmonale, unspecified chronicity (HCC) TAKE 1 TABLET(20 MG) BY MOUTH DAILY AFTER DINNER 30 tablet 02/20/2018 9 documented as of this encounter Discharge Disposition Disposition Code Departure Means Destination Discharge to home or self care documented in this encounter Plan of Treatment Not on file documented as of this encounter Procedures Procedure Name Priority Date/Time Associated Diagnosis Comments XR CHEST 1 VIEW ED 02/24/2018 1:40 AM CDT documented in this encounter Results * XR Chest 1 Vw Portable (02/24/2018 1:40 AM CDT) Anatomical Region Laterality Modality Body, Chest N/A Computed Radiogr aphy 02/24/2018 1:55 PM CDT Impressions 02/24/2018 1:56 PM CDT Comparison is made to previous examination dated 01/23/2018. ??The examination is suboptimal due to patient's body habitus, which accounts for hazy opacification of the lungs. ??No focal airspace or interstitial opacities noted in this setting. ??No appreciable pleural effusion. ??No pneumothorax. ??The heart appears mildly enlarged, but this may be overestimated by portable technique. ??No mediastinal widening noted. Electronically signed by: Brando Restrepo M.D. Narrative 02/24/2018 1:56 PM CDT RESULT: EXAMINATION: XR CHEST 1 VIEW HISTORY: Shortness of breath. Procedure Note Robert Roberts MD - 02/24/2018 RESULT: EXAMINATION: XR CHEST 1 VIEW HISTORY: Shortness of breath. IMPRESSION: Comparison is made to previous examination dated 01/23/2018. The examination is suboptimal due to patient's body habitus, which accounts for hazy opacification of the lungs. No focal airspace or interstitial opacities noted in this setting. No appreciable pleural effusion. No pneumothorax. The heart appears mildly enlarged, but this may be overestimated by portable technique. No mediastinal widening noted. Electronically signed by: Brando Restrepo M.D. us Erick Davis MD IMG XR PROCEDURES Final Re sult documented in this encounter Visit Diagnoses Not on filedocumented in this encounter Care Teams Psychologist Experimental Relationship Specialty Start Date End Date Justen Gale MD 2 [facility] [address] [place] [address] PCP - General 10/09/17 Liu Jerez MD Consulting Physician Gastroenterology 07/28/[address] [place] [address] [facility] [address] [place] [address] Consulting Physician Pulmonary Disease 08/03/17 Khris Arthur MD [address] [facility] [address] [place] [address] Medical Oncologist/Payroll And Benefits Coordinator Medical Oncology 10/23/[address] [place] [address] [facility] [address] [place] [address] Surgeon Orthopedic Surgery 10/23/17 [place] [address] [facility] [address] [place] [address] Consulting Physician Pain Management 10/23/[address] [place] [address] [facility] [address] [place] [address] Referring Physician General Surgery 01/26/18 [place] [address] [facility] [address] [place] [address] Consulting Physician Neurology 01/26/18 documented as of this encounter
--- OUTSIDE RECORDS SUMMARY | 2024-04-26 04:25 | XMS_ITS | Encounter Summary ---
Author Organization [facility] Address [address] [place] [address] Phone Care Team Providers Care Content Management Specialist Name Role Phone Liu Jerez MD Unavailable [phone] Albert Corbin MD Unavailable Justen Gale MD Primary Care Provider [phone] Khris Arthur MD Unavailable [phone] Ko Melendez MD Unavailable [phone] John Palu Moyer MD Unavailable Annel Rod MD Unavailable Anali MARSHALL MD, Carlos M. 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 Gender Identity Not on file Sexual Orientation Not on file documented as of this encounter Ordered Prescriptions Prescription Sig Dispense Quantity Refills Last Filled Start Date End Date exemestane (AROMASIN) 25 mg tabletIndications: Other pulmonary embolism without acute cor pulmonale, unspecified chronicity (HCC),Malignant neoplasm of upper-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, unspecified estrogen receptor status (HCC),Malignant neoplasm of overlapping sites of left female breast, unspecified estrogen receptor status (HCC),Malignant neoplasm of female breast, unspecified estrogen receptor status, unspecified laterality, unspecified site of breast (HCC) Take 1 tablet (25 mg total) by mouth daily. After a meal 30 tablet 03/23/2018 03/26/2018 rivaroxaban (XARELTO) 20 mg tabletIndications: Other pulmonary embolism without acute cor pulmonale, unspecified chronicity (HCC),Malignant neoplasm of upper-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, unspecified estrogen receptor status (HCC),Malignant neoplasm of overlapping sites of left female breast, unspecified estrogen receptor status (HCC),Malignant neoplasm of female breast, unspecified estrogen receptor status, unspecified laterality, unspecified site of breast (HCC) Take 1 tablet (20 mg total) by mouth daily. After Dinner 30 tablet 03/23/2018 09/19/2018 documented in this encounter Plan of Treatment Not on file documented as of this encounter Visit Diagnoses Diagnosis Other pulmonary embolism without acute cor pulmonale, unspecified chronicity (HCC)- Primary Malignant neoplasm of upper-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, unspecified estrogen receptor status (HCC) Malignant neoplasm of overlapping sites of left female breast, unspecified estrogen receptor status (HCC) Malignant neoplasm of female breast, unspecified estrogen receptor status, unspecified laterality, unspecified site of breast (HCC) documented in this encounter Discontinued Medications Medication Sig Discontinue Reason Start Date End Da te rivaroxaban (XARELTO) 20 mg tablet Take 20 mg by mouth. Reorder 08/08/2017 03/23/2018 exemestane (AROMASIN) 25 mg tablet TAKE 1 TABLET BY MOUTH DAILY, AFTER A MEAL Reorder 02/20/2018 03/23/2018 documented as of this encounter Care Teams Content Management Specialist Relationship Specialty Start Date End Date Justen Gale MD [address] [address] PCP - General 10/09/17 Liu Jerez MD Consulting Physician Gastroenterology 07/28/17 [place] [address] [facility] [address] [place] [address] Consulting Physician Pulmonary Disease 08/03/17 Khris Arthur MD [address] [facility] [address] [place] [address] Medical Oncologist/Director Patient Accounting Medical Oncology 10/23/17 [place] [address] [facility] [address] [place] [address] Surgeon Orthopedic Surgery 10/23/17 [place] [address] [facility] [address] [place] [address] Consulting Physician Pain Management 10/23/17 [place] [address] [facility] [address] [place] [address] Referring Physician General Surgery 01/26/18 [place] [address] [address] [facility] [address] [place] [address] Consulting Physician Neurology 01/26/18 documented as of this encounter
--- OUTSIDE RECORDS SUMMARY | 2024-04-26 04:25 | XMS_ITS | Encounter Summary ---
Author Organization [facility] Address [address] [place] [address] Phone Care Team Providers Care Counselor Dormitory Name Role Phone Liu Jerez MD Unavailable [phone] Albert Corbin MD Unavailable [phone] Justen Gale MD Primary Care Provider [phone] Khris Arthur MD Unavailable [phone] Ko Melendez MD Unavailable [phone] John Paul Moyer MD Unavailable Annel Rod MD Unavailable Anali MARSHALL MD, Carlos M. 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 30 tablet 06/06/2018 07/13/2018 documented in this encounter Plan of Treatment [...] End Da te rivaroxaban (XARELTO) 20 mg tabletIndications:Other pulmonary embolism without acute cor pulmonale, unspecified chronicity (HCC) Take 1 tablet (20 mg total) by mouth daily. Reorder 05/04/2018 06/06/2018 documented as of this encounter Care Teams Counselor Dormitory Relationship Specialty Start Date End Date Justen Gale MD 2 [facility] [address] [place] [address] PCP - General 10/09/17 Liu Jerez MD Consulting Physician Gastroenterology 07/28/17 [place] [address] [facility] [address] [place] [address] Consulting Physician Pulmonary Disease 08/03/17 Khris Arthur MD [address] [facility] [address] [place] [address] Medical Oncologist/Recreational Vehicle Resort Manager Medical Oncology 10/23/17 [place] [address] [facility] [address] [place] [address] Surgeon Orthopedic Surgery 10/23/17 [place] [address] [facility] [address] [place] [address] Consulting Physician Pain Management 10/23/17 [place] [address] [facility] [address] [place] [address] Referring Physician General Surgery 01/26/18 [place] [address] [facility] [address] [place] [address] Consulting Physician Neurology 01/26/18 documented as of this encounter
--- OUTSIDE RECORDS SUMMARY | 2024-04-26 04:25 | XMS_ITS | Encounter Summary ---
Author Organization [facility] Healthcare Address [address] [place] [address] Care Team Providers Care Starch Factory Laborer Name Role Phone Liu Jerez MD Unavailable Albert Corbin MD Unavailable Justen Gale MD Primary Care Provider Khris Arthur MD Unavailable [phone] Ko Melendez MD Unavailable John Paul Moyer MD Unavailable Annel Rod MD Unavailable Anali MARSHALL MD, Carlos M. 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 30 tablet 01/26/2018 1 diazePAM (VALIUM) 5 mg tablet Take 1 tablet (5 mg total) by mouth every 8 (eight) hours as needed for anxiety. 10 tablet 03/17/2018 1 exemestane (AROMASIN) 25 mg tabletIndications :Other [...] (TONGUE SWELLING) Indications: anxious. 20 tablet 06/28/2018 9 hydrOXYzine (ATARAX) 25 mg tabletIndications :anxiety Take [...] mouth daily. After Dinner 30 tablet 03/23/2018 9 rivaroxaban (XARELTO) 20 mg tabletIndications :Other pulmonary [...] total) by mouth daily. 30 tablet 06/06/2018 9 TRUEPLUS PEN NEEDLE 31 gauge x 5/16 needle 05/28/2018 1 documented as of this encounter Discharge Disposition Disposition Code Departure Means Destination Discharge to home or self care documented in this encounter Plan of Treatment Not on file documented as of this encounter Procedures Procedure Name Priority Date/Time Associated Diagnosis Comments XR CHEST PA LATERAL 2 VIEWS ED 06/27/2018 5:21 PM PATIENT SCHEDULER documented in this encounter Results * XR Chest Pa Lateral 2 Vw (06/27/2018 5:21 PM PATIENT SCHEDULER) Anatomical Region Laterality Modality Body, Chest N/A Computed Radiogr aphy 06/27/2018 5:27 PM PATIENT SCHEDULER Impressions 06/27/2018 5:27 PM PATIENT SCHEDULER Negative study. Electronically signed by: Fabienne Gaspar M.D. Narrative 06/27/2018 5:27 PM PATIENT SCHEDULER RESULT: HISTORY: The patient is a 63-year-old female who presents with shortness of breath. ??Comparison made with the previous study 03/17/2018. TECHNIQUE: PA and lateral view of chest. FINDINGS: Lungs clear. ??Cardiovascular structures unremarkable. Procedure Note Fabienne Gaspar MD - 06/27/2018 RESULT: HISTORY: The patient is a 63-year-old female who presents with shortness of breath. Comparison made with the previous study 03/17/2018. TECHNIQUE: PA and lateral view of chest. FINDINGS: Lungs clear. Cardiovascular structures unremarkable. IMPRESSION: Negative study. Electronically signed by: Fabienne Gaspar M.D. Rudolph Bauman CIRCUITS ENGINEER IMG XR PROCEDURES Final Resu lt documented in this encounter Visit Diagnoses Not on filedocumented in this encounter Care Teams Starch Factory Laborer Relationship Specialty Start Date End Date Justen Gale MD 2 [facility] [address] [place] [address] PCP - General 10/09/17 Liu Jerez MD Consulting Physician Gastroenterology 07/28/17 [place] [address] [facility] [address] [place] [address] Consulting Physician Pulmonary Disease 08/03/17 Khris Arthur MD [address] [facility] [address] [place] [address] Medical Oncologist/Vamp Strap Ironer Medical Oncology 10/23/17 [place] [address] [facility] [address] [place] [address] Surgeon Orthopedic Surgery 10/23/17 [place] [address] [facility] [address] [place] [address] Consulting Physician Pain Management 10/23/17 [place] [address] [facility] [address] [place] [address] Referring Physician General Surgery 01/26/18 [place] [address] [facility] [address] [place] [address] Consulting Physician Neurology 01/26/18 documented as of this encounter
--- OUTSIDE RECORDS SUMMARY | 2024-04-26 04:25 | XMS_ITS | Encounter Summary ---
Author Organization [facility] Address [address] [place] [address] Phone Care Team Providers Care Dustless Operator Name Role Phone Liu Jerez MD Unavailable Albert Corbin MD Unavailable Justen Gale MD Primary Care Provider [phone] Khris Arthur MD Unavailable [phone] Ko Melendez MD Unavailable [phone] John Paul Moyer MD Unavailable Annel Rod MD Unavailable Anali MARSHALL MD, Carlos M. Unavailable Encounter Details Date Type Department Care Team (Late st Contact Info) Description 05/04/2018 Orders Only [facility] Oncology [address] [facility] 7th [place] [address] [place] [address] Nancy Dhillon RMA Other pulmonary embolism without acute cor pulmonale, unspecified chronicity (CMS/HCC) Social History Tobacco Use Types Packs/Day Years Used Date Smoking Tobacco: Former Smokeless Tobacco: Never Comments:remote tobacco use Alcohol Use Standard Drinks/Week Comments No 0 (1 standard drink = 0.6 oz pur e alcohol) Comments No Sex and Gender Information Value Date Recorded Sex Assigned at Not on file 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 30 tablet 05/04/2018 06/06/2018 documented in this encounter Plan of Treatment Not on file documented as of this encounter Visit Diagnoses Diagnosis Other pulmonary embolism without acute cor pulmonale, unspecified chronicity (HCC) documented in this encounter Discontinued Medications Medication Sig Discontinue Reason Start Date End Da te XARELTO 20 mg tabletIndications:Other pulmonary embolism without acute cor pulmonale, unspecified chronicity (HCC) TAKE 1 TABLET(20 MG) BY MOUTH DAILY AFTER DINNER Reorder 02/20/2018 05/04/2018 documented as of this encounter Care Teams Dustless Operator Relationship Specialty Start Date End Date Justen Gale MD 2 [facility] [address] [place] [address] PCP - General 10/09/17 Liu Jerez MD Consulting Physician Gastroenterology 07/28/[address] [place] [address] [facility] [address] [place] [address] Consulting Physician Pulmonary Disease 08/03/17 Khris Arthur MD [address] [place] [address] [address] [place], [place] [id number] Medical Oncologist/Photographer Assistant Medical Oncology 10/23/[address] [place] [address] [facility] [address] [place] [address] Surgeon Orthopedic Surgery 10/23/17 [place] [address] [address] Consulting Physician Pain Management 10/23/17 [place] [address] [address] Referring Physician General Surgery 01/26/18 [place] [address] [facility] [facility] [address] [place] [address] Consulting Physician Neurology 01/26/18 documented as of this encounter
--- OUTSIDE RECORDS SUMMARY | 2024-04-26 04:25 | XMS_ITS | Encounter Summary ---
Author Organization [facility] Address [address] [place] [address] Phone Care Team Providers Care Seating Captain Name Role Phone Liu Jerez MD Unavailable Albert Corbin MD Unavailable Justen Gale MD Primary Care Provider Khris Arthur MD Unavailable [phone] Ko Melendez MD Unavailable [phone] John Paul Moyer MD Unavailable Annel Rod MD Unavailable Anali MARSHALL MD, Carlos M. 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 She is going to have a FNA and was concerned that it might be a site of metastasis. She states she will have the results faxed to our office when they are available. AND FOUNDER documented in this encounter Plan of Treatment Not on file documented as of this encounter Visit Diagnoses Not on filedocumented in this encounter Care Teams Seating Captain Relationship Specialty Start Date End Date Justen Gale MD [address] [address] PCP - General 10/09/17 Liu Jerez MD Consulting Physician Gastroenterology 07/28/17 [place] [address] [address] [facility] [address] [place] [address] Consulting Physician Pulmonary Disease 08/03/17 Khris Arthur MD [address] [facility] [address] [place] [address] Medical Oncologist/Electrical Test Engineer Medical Oncology 10/23/17 [place] [address] [facility] [address] [place] [address] Surgeon Orthopedic Surgery 10/23/17 [place] [address] [address] Consulting Physician Pain Management 10/23/17 [place] [address] [address] Referring Physician General Surgery 01/26/18 [place] [address] [facility] [address] [place] [address] Consulting Physician Neurology 01/26/18 documented as of this encounter
--- OUTSIDE RECORDS SUMMARY | 2024-04-26 04:25 | XMS_ITS | Encounter Summary ---
Author Organization [facility] Address [address] [place] [address] Phone Care Team Providers Care Database Engineer Name Role Phone Liu Jerez MD Unavailable Albert Corbin MD Unavailable [phone] Justen Gale MD Primary Care Provider Khris Arthur MD Unavailable [phone] Ko Melendez MD Unavailable John Paul Moyer MD Unavailable [phone] Annel Rod MD Unavailable Anali MARSHALL MD, Carlos M. 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 Gender Identity Not on file Sexual [...] total) by mouth daily 30 tablet 08/08/2018 08/11/2020 documented in this encounter Plan of Treatment [...] (20 mg total) by mouth daily Reorder 07/13/2018 08/08/2018 documented as of this encounter Care Teams Database Engineer Relationship Specialty Start Date End Date Justen Gale MD 2 [facility] [address] [place] [address] PCP - General 10/09/17 Liu Jerez MD Consulting Physician Gastroenterology 07/28/17 [place] [address] [facility] [address] [place] [address] Consulting Physician Pulmonary Disease 08/03/17 Khris Arthur MD [address] [facility] [address] [place] [address] Medical Oncologist/Film Cutter Medical Oncology 10/23/17 [place] [address] [facility] [address] [place] [address] Surgeon Orthopedic Surgery 10/23/17 [place] [address] [facility] [address] [place] [address] Consulting Physician Pain Management 10/23/17 [place] [address] [facility] [address] [place] [address] Referring Physician General Surgery 01/26/18 [place] [address] [facility] [address] [place] [address] Consulting Physician Neurology 01/26/18 documented as of this encounter
--- OUTSIDE RECORDS SUMMARY | 2024-04-26 04:25 | XMS_ITS | Encounter Summary ---
Author Organization [facility] Address [address] [place] [address] Phone Care Team Providers Care Slasher Name Role Phone Liu Jerez MD Unavailable [phone] Albert Corbin MD Unavailable Justen Gale MD Primary Care Provider Khris Arthur MD Unavailable [phone] Ko Melendez MD Unavailable [phone] John Paul Moyer MD Unavailable [phone] Annel Rod MD Unavailable Anali MARSHALL MD, Carlos M. 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 sitaGLIPtin-metf ormin (JANUMET) 50-1,000 mg per tablet Take 1 tablet by mouth 1 TRUEPLUS PEN NEEDLE 31 gauge x 5/16 needle 05/28/2018 1 lancets (ONETOUCH DELICA LANCETS) 33 gauge misc by Not Applicable route 4 times daily 01/19/2018 1 gabapentin (NEURONTIN) 300 mg capsule Take 300 mg by mouth 3 times daily 02/27/2018 1 amitriptyline (ELAVIL) 25 mg tablet Take 25 mg by mouth nightly 05/21/2018 4 added in this encounter Care Teams Slasher Relationship Specialty Start Date End Date Justen Gale MD 2 [facility] [address] [place] [address] PCP - General 10/09/17 Liu Jerez MD Consulting Physician Gastroenterology 07/28/17 [place] [address] [facility] [address] [place] [address] Consulting Physician Pulmonary Disease 08/03/17 Khris Arthur MD 49[address] [facility] [address] [place], [place] [id number] Medical Oncologist/Swine Extension Field Specialist Medical Oncology 10/23/17 [place] [address] [facility] [address] [place] [address] Surgeon Orthopedic Surgery 10/23/17 [place] [address] [address] Consulting Physician Pain Management 10/23/17 [place] [address] [address] Referring Physician General Surgery 01/26/18 [place] [address] [address] [facility] [address] [place] [address] Consulting Physician Neurology 01/26/18 documented as of this encounter
--- OUTSIDE RECORDS SUMMARY | 2024-04-26 04:25 | XMS_ITS | Encounter Summary ---
Author Organization [facility] Address [address] [place] [address] Phone Care Team Providers Care Front Sight Attacher Name Role Phone Liu Jerez MD Unavailable Albert Corbin MD Unavailable Justen Gale MD Primary Care Provider Khris Arthur MD Unavailable [phone] Ko Melendez MD Unavailable [phone] John Paul Moyer MD Unavailable Annel Rod MD Unavailable Anali MARSHALL MD, Carlos M. Unavailable [phone] Reason for Visit * Reason Onset Date Comments Med Refill 03/23/2018 Encounter Details Date Type Department Care Team (Late st Contact Info) Description 03/23/2018 Telephone [facility] Oncology [address] [facility] 7th [place] [address] [place] [address] Nancy Dhillon RYAN Med Refill Social History Tobacco Use Types Packs/Day Years Used Date Smoking Tobacco: Former Smokeless Tobacco: Never Comments:remote tobacco use Alcohol Use Standard Drinks/Week Comments No 0 (1 standard drink = 0.6 oz pur e alcohol) Comments No Sex and Gender Information Value Date Recorded Sex Assigned at Not on file 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 Medication was e-scribed andsent to them. 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 Also left nurse number to call back if she had any further concerns. HEN WORKER documented in this encounter Plan of Treatment Not on file documented as of this encounter Visit Diagnoses Not on filedocumented in this encounter Care Teams Front Sight Attacher Relationship Specialty Start Date End Date Justen Gale MD [address] [address] PCP - General 10/09/17 Liu Jerez MD Consulting Physician Gastroenterology 07/28/17 [place] [address] [facility] [address] [place] [address] Consulting Physician Pulmonary Disease 08/03/17 Khris Arthur MD [address] [facility] [address] [place] [address] Medical Oncologist/Railroad Wheels And Axle Inspector Medical Oncology 10/23/17 [place] [address] [facility] [address] [place] [address] Surgeon Orthopedic Surgery 10/23/17 [place] [address] [address] Consulting Physician Pain Management 10/23/17 [place] [address] [facility] [address] [place] [address] Referring Physician General Surgery 01/26/18 [place] [address] [facility] [address] [place] [address] Consulting Physician Neurology 01/26/18 documented as of this encounter
--- OUTSIDE RECORDS SUMMARY | 2024-04-26 04:25 | XMS_ITS | Encounter Summary ---
Author Organization [facility] Address [address] [place] [address] Phone Care Team Providers Care Cone Operator Name Role Phone Liu Jerez MD Unavailable [phone] Albert Corbin MD Unavailable [phone] Justen Gale MD Primary Care Provider Khris Arthur MD Unavailable [phone] Ko Melendez MD Unavailable John Paul Moyer MD Unavailable Annel Rod MD Unavailable Anali MARSHALL MD, Carlos M. Unavailable [phone] Encounter Details Date Type Department Care Team (Late st Contact Info) Description 03/26/2018 Orders Only [facility] Oncology 49[address] 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 After a meal 30 tablet 11 03/26/2018 04/27/2018 documented in this encounter Plan of Treatment [...] by mouth daily. After a meal Reorder 03/23/2018 03/26/2018 documented as of this encounter Care Teams Cone Operator Relationship Specialty Start Date End Date Justen Gale MD [address] [address] PCP - General 10/09/17 Liu Jerez MD Consulting Physician Gastroenterology 07/28/17 [place] [address] [facility] [address] [place] [address] Consulting Physician Pulmonary Disease 08/03/17 [place] [address] [place] [address] [address] [place] [address] Medical Oncologist/Observatory Director Medical Oncology 10/23/17 [place] [address] [address] Surgeon Orthopedic Surgery 10/23/17 [place] [address] [address] Consulting Physician Pain Management 10/23/17 [place] [address] [facility] [address] [place] [address] Referring Physician General Surgery 01/26/18 [place] [address] [address] Consulting Physician Neurology 01/26/18 documented as of this encounter
--- OUTSIDE RECORDS SUMMARY | 2024-04-26 04:25 | XMS_ITS | Encounter Summary ---
Author Organization [facility] Address [address] [place] [address] Care Team Providers Care Envelope Sealer Name Role Phone Liu Jerez MD Unavailable Albert Corbin MD Unavailable Justen Gale MD Primary Care Provider Khris Arthur MD Unavailable [phone] Ko Melendez MD Unavailable [phone] John Paul Moyer MD Unavailable Annel Rod MD Unavailable Anali MARSHALL MD, Carlos M. Unavailable Encounter Details Date Type Department Care Team (Latest Contact Info) Description 03/17/2018 3:22 AM VOCATIONAL AIDE - 03/17/2018 7:15 AM VOCATIONAL AIDE Hospital Encounter [facility] [address] [place] [address] Discharge Disposition: Discharge to home [...] on file Legal Sex Female 12:24 AM VOCATIONAL AIDE Gender Identity Not on file Sexual [...] AFTER A MEAL 30 tablet 02/20/2018 8 gabapentin (NEURONTIN) 300 mg capsule Take 300 [...] Diagnosis Comments XR CHEST 1 VIEW ED 03/17/2018 3:45 AM VOCATIONAL AIDE documented in this encounter Results * XR Chest 1 Vw Portable (03/17/2018 3:45 AM VOCATIONAL AIDE) Anatomical Region Laterality Modality Body, Chest N/A Computed Radiogr aphy 03/17/2018 10:2 5 AM VOCATIONAL AIDE Impressions 03/17/2018 10:26 AM VOCATIONAL AIDE Mild vascular congestion. Electronically signed by: Avelino Alonso M.D. Narrative 03/17/2018 10:26 AM VOCATIONAL AIDE RESULT: EXAMINATION: AP PORTABLE CHEST RADIOGRAPH Date: 03/17/2018 3:25 AM History: Shortness of breath Comparison: 02/24/2018. Findings: Normal heart size. ??No pleural effusion, focal consolidation, or pneumothorax. ??Mild vascular congestion is noted. No acute osseous finding. Procedure Note Avelino Alonso MD - 03/17/2018 RESULT: EXAMINATION: AP PORTABLE CHEST RADIOGRAPH Date: 03/17/2018 3:25 AM History: Shortness of breath Comparison: 02/24/2018. Findings: Normal heart size. No pleural effusion, focal consolidation, or pneumothorax. Mild vascular congestion is noted. No acute osseous finding. IMPRESSION: Mild vascular congestion. Electronically signed by: Avelino Alonso M.D. us Erick Davis MD IMG XR PROCEDURES Final Re sult documented in this encounter Visit Diagnoses Not on filedocumented in this encounter Care Teams Envelope Sealer Relationship Specialty Start Date End Date Justen Gale MD 2 [facility] [address] [place] [address] PCP - General 10/09/17 Liu Jerez MD Consulting Physician Gastroenterology 07/28/17 [place] [address] [facility] [address] [place] [address] Consulting Physician Pulmonary Disease 08/03/17 Khris Arthur MD [address] [facility] [address] [place] [address] Medical Oncologist/Wash Crew Person Medical Oncology 10/23/17 [place] [address] [facility] [address] [place] [address] Surgeon Orthopedic Surgery 10/23/17 [place] [address] [facility] [address] [place] [address] Consulting Physician Pain Management 10/23/17 [place] [address] [facility] [address] [place] [address] Referring Physician General Surgery 01/26/18 [place] [address] [facility] [address] [place] [address] Consulting Physician Neurology 01/26/18 documented as of this encounter
--- OUTSIDE RECORDS SUMMARY | 2024-04-26 04:25 | XMS_ITS | Encounter Summary ---
Author Organization [facility] Healthcare Address [address] [place] [address] Care Team Providers Care Underwriting Account Representative Name Role Phone Liu Jerez MD Unavailable Albert Corbin MD Unavailable Justen Gale MD Primary Care Provider [phone] Khris Arthur MD Unavailable [phone] Ko Melendez MD Unavailable John Paul Moyer MD Unavailable Annel Rod MD Unavailable Anali MARSHALL MD, Carlos M. 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 ([facility]); 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; Angioedema, initial encounter Discharge Disposition: Discharge to home [...] file Legal Sex Female 12:24 AM SENIOR DESIGNER/ART DIRECTOR Gender Identity Not on file Sexual Orientation Not on file documented as of this encounter Last Filed Vital Signs Vital Sign Reading Time Taken Comments Blood Pressure 125/71 06/28/2018 1:00 AM SENIOR DESIGNER/ART DIRECTOR Pulse 90 06/27/2018 10:45 PM SENIOR DESIGNER/ART DIRECTOR Temperature 36.3 ??C (97.3 ??F) 06/28/2018 1:00 AM CS T Respiratory Rate 16 06/27/2018 7:55 PM SENIOR DESIGNER/ART DIRECTOR Oxygen Saturation 100% 06/27/2018 10:45 PM SENIOR DESIGNER/ART DIRECTOR Inhaled Oxygen Concentration - - Weight - - Height - - Body Mass Index - - documented in this encounter Medications at Time of Discharge rOPINIRole (REQUIP) 5 mg tablet Take 1 tablet (5 mg total) by mouth nightly Taken at 2100 ciprofloxacin (CIPRO) 500 mg tablet Take 1 tablet (500 mg total) by mouth 2 (two) times a day for 7 days . 14 tablet 06/27/2018 9 predniSONE (DELTASONE) 20 mg tablet Take 2 tablets (40 mg total) by mouth daily for 5 days . 10 tablet 06/27/2018 9 amitriptyline (ELAVIL) 25 mg tablet Take 25 [...] Filled Start Date End Date hydrOXYzine (ATARAX) 25 mg tabletIndications: anxiety Take 1 tablet (25 mg total) by mouth 4 (four) times a day as needed for itching or anxiety (TONGUE SWELLING) Indications: anxious. 20 tablet 06/28/2018 1 hydrOXYzine (ATARAX) 25 mg tabletIndications: anxiety Take 1 tablet (25 mg total) by mouth 4 (four) times a day as needed for itching or anxiety (TONGUE SWELLING) Indications: anxious. 20 tablet 06/28/2018 9 ciprofloxacin (CIPRO) 500 mg tablet Take 1 tablet (500 mg total) by mouth 2 (two) times a day for 7 days . 14 tablet 06/27/2018 9 diphenhydrAMINE (diphenhydrAMINE) 25 mg capsule Take 1 tablet/capsul e (25 mg total) by mouth every 6 (six) hours as needed for itching . 20 capsule 06/27/2018 1 predniSONE (DELTASONE) 20 mg tablet Take 2 tablets (40 mg total) by mouth daily for 5 days . 10 tablet 06/27/2018 9 clonazePAM (KlonoPIN) 1 mg tablet Take 1 tablet (1 mg total) by mouth 2 (two) times a day for 10 days . 20 tablet 06/27/2018 2 documented in this encounter Discharge Disposition Disposition Code Departure Means Destination Discharge to home or self care documented in this encounter ED Notes * Kelli Adamson RN - 06/28/2018 1:01 AM CST Pt reports the swelling has not increased. VSS, Dr aware of patient status, will continue to monitor. Kelli Adamson RN 06/28/18 010 OR DESIGNER/ART DIRECTOR * Jos Whitmore RN - 06/27/2018 9:18 PM CST Bed: [id number] Expected date: Expected time: Means of arrival: Comments: Jos Whitmore RN 06/27/18 8112 OR DESIGNER/ART DIRECTOR * Loren Knowles MD - 06/27/2018 7:51 PM CST HPI Chief Complaint Patient presents with ??? Palpitations 10:24 PM Karly Marques is a 63 y.o. female with history of Breast cancer, DVT, CHF, DM, and HTNwho presents to the ED for evaluation of multiple complaints. Symptoms stared 2 weeks ago with generalized weakness, fatigue, and a decreased appetite. She then started to have hot flash episodes where she felt flushed, lightheaded, diaphoretic, tremulous, and palpitations. She has had chest pain but no SOB or wheeze. No recent fever, chills, cough, or sore throat. Denies any numbness or tinglingin any extremity. Denies any CAZARES, unilateral weakness, changes in vision, or LOC. She additionally reports of dysphagia within the last 24 hours and describes this sensation as feeling like something is back there that she can't get out. Past Social Hx: Nonsmoker; nondrinker; no drug use Patient History Past Medical History: Diagnosis Date ??? [...] Review of Systems Constitutional: Positive for appetite change, diaphoresis and fatigue. Negative for chills and fever. HENT: Positive for trouble swallowing. Negative for rhinorrhea and sore throat. Eyes: Negative for visual disturbance. Respiratory: Negative for cough, chest tightness, shortness of breath and wheezing. Cardiovascular: Positive for chest pain and palpitations. Negative for leg swelling. Gastrointestinal: Negative for abdominal pain, constipation, diarrhea, nausea and vomiting. Endocrine: Negative for cold intolerance. Genitourinary: Negative for difficulty urinating, dysuria, frequency and urgency. Musculoskeletal: Negative for myalgias. Skin: Negative for rash. Allergic/Immunologic: Negative for food allergies. Neurological: Positive for tremors, weakness and light-headedness. Negative for dizziness, syncope,numbness and headaches. Psychiatric/Behavioral: Negative for hallucinations and suicidal ideas. All other systems reviewed and are negative. Physical Exam ED Triage Vitals Temp Pulse Resp BP SpO2 06/27/18 1617 06/27/18 1617 06/27/18 1617 06/27/18 1617 06/27/18 1617 36.2 ??C (97.2 ??F) 94 19 (!) 163/101 100 % Temp src Heart Rate Source Patient Position BP Location FiO2 (%) 06/28/18 0100 -- -- -- -- Oral Physical Exam Constitutional: She is oriented to person, place, and time. She appears well- developed. No distress. MORBIDLY OBESE . HENT: Head: Normocephalic and atraumatic. Right Ear: External ear normal. Left Ear: External ear normal. Mouth/Throat: Oropharynx is clear and moist and mucous membranes are normal. Eyes: Pupils are equal, round, and reactive to light. Conjunctivae and EOM are normal. Right eye exhibits no discharge. Left eye exhibits no discharge. No scleral icterus. Neck: Normal range of motion. Neck supple. Cardiovascular: Normal rate, regular rhythm, normal heart sounds and intact distal pulses. Exam reveals no friction rub. No murmur heard. Pulmonary/Chest: Effort normal and breath sounds normal. No respiratory distress. She has no decreased breath sounds. She has no wheezes. She has no rales. She exhibits no tenderness. Abdominal: Soft. Bowel sounds are normal. She exhibits no distension. There is no tenderness. Thereis no guarding. Musculoskeletal: Normal range of motion. She exhibits no edema, tenderness or deformity. Neurological: She is alert and oriented to person, place, and time. She has normal strength. No cranial nerve deficit or sensory deficit. She exhibits normal muscle tone. Coordination normal. Skin: Skin is warm and dry. No rash noted. She is not diaphoretic. No erythema. No pallor. Psychiatric: SLIGHTLY ANXIOUS WITH SLIGHT PERIPHERAL TREMORS. Nursing note and vitals reviewed. Procedures MDM Labs Reviewed CBC WITH AUTO DIFFERENTIAL - Abnormal Result Value WBC 11.6 (*) Hgb 13.6 Hct 44.5 Plt 352 MPV 9.5 RBC 4.82 MCV 92.3 MCH 28.2 MCHC 30.6 (*) RDW CV 14.8 RDW SD 51.4 (*) NRBC Abs 0.00 Narrative: COMPREHENSIVE METABOLIC PANEL - Abnormal Sodium 140 Potassium, pl 4.4 Chloride 98 CO2 28 Anion Gap 14 BUN 17 Creatinine 0.66 Glucose 131 Calcium 10.5 (*) Bilirubin, total 0.4 Protein, pl 9.1 (*) Albumin 4.1 Alk phos 99 ALT 23 AST 19 Narrative: DIFFERENTIAL AUTO - Abnormal Neutrophil absolute 7.8 (*) Immature granulocyte absolute 0.0 Lymphocytes absolute 2.6 Monocyte absolute 0.8 Eosinophils absolute 0.3 Basophils, abs 0.0 Neutrophils 67.3 Immature granulocytes 0.4 Lymphocytes 22.2 Monocytes 7.1 Eosinophils 2.6 Basophils 0.4 Narrative: URINALYSIS AND REFLEX TO MICROSCOPIC - Abnormal Color, ur Yellow Clarity, ur Clear Specific gravity, ur 1.017 pH, urine 5.0 Protein, ur ql Negative Glucose, ur ql Negative Ketones, ur Negative Bilirubin, ur Negative Blood, ur 1+ (*) Urobilinogen, ur <2.0 Nitrite, ur Negative Leukocyte esterase, ur 1+ (*) Narrative: Urine pH is affected by diet, medications, systemic acid-base disturbances, and renal tubular function. pH may affect urinary stone formation. For example, urine pH below 6.0 may help reduce the tendency for calcium phosphate stones and pH greater than 6.0 may reduce the tendency for uric acid stone formation. Source: [facility].Last revised 05-04-2017 URINALYSIS, MICROSCOPIC ONLY - Abnormal WBC, ur 6-10 (*) RBC, ur 0-2 Epithelial cells, squamous, ur 1-5 Mucous, ur Present (*) Narrative: TSH Thyroid Stimulating Hormone 1.26 Narrative: EGFR GFR 95 Narrative: PRO B-TYPE NATRIURETIC PEPTIDE NT-proBNP 23 Narrative: XR Chest Pa Lateral 2 Vw ED Interpretation NO ACUTE PATHOLOGY Final Result Negative study. Electronically signed by: Fabienne Gaspar M.D. 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 ([facility]): Urinary tract infection without hematuria, site unspecified: Diagnosis management comments: IN MY MEDICAL DECISION MAKING THE FOLLOWING DIFFERENTIAL DIAGNOSES WERE CONSIDERED BEFORE ARRIVING AT FINAL DIAGNOSIS AND MANY WERE EITHER RULED OUT OR APPEARED UNLIKELY: AV block/Cardiomyopathy/MVP, CAD, Hypoxia / Hypokalemia, CHF / COPD, Digoxin / Theophylline Toxicity, Medication Induced, Panic Disorder / Hyperventilation, Paroxsymal SVT / VT, Myocarditis / Pericarditis, Pulmonary Embolism Dental Abscess, Dental Caries, Fractured Tooth, Gingivitis, Nicholas's Angina, Mandibular / MaxillaryTrauma, Cluster Headache, Odontogenic Pain, Periodontic Disease, Peritonsillar Abscess, Pharyngitis/ Tonsillitis, PostExtraction Pain, Sinusitis, Temporal Arteritis, TMJ syndrome, Mononucleosis, Epiglottitis, Peritonsillar Abscess, Nicholas's Angina, URI, Laryngitis Tonsillitis, Influenza, Sinusitis, Foreign Body, Pharyngitis Amount and/or Complexity of Data Reviewed Clinical lab tests: ordered and reviewed Tests in the radiology section of CPT??: ordered and reviewed Decide to obtain previous medical records or to obtain history from someone other than the patient:yes Independent visualization of images, tracings, or specimens: yes Risk of Complications, Morbidity, and/or Mortality Presenting problems: moderate Diagnostic procedures: moderate Management options: moderate Patient Progress Patient progress: stable ED Course as of Jun 28 526 Time: 06/28 2219 Comment: PT. RECIEVED MEDICATIONS AND OTHER INTERVENTIONS TO TREAT HIS/HER SYMPTOMS AND PATHOLOGY APPROPRIATELY AND PT. HAS ADEQUATELY RESPONDED TO THEM. MORE DETAILS COULD BE OBTAINED IN NURSING NOTES. PT'S OLD PERTINENT RECORDS WERE REVIEWED WHEN AVAILABLE TO HELP MANAGE THE PATIENT ON THIS ENCOUNTER. PT. FEELS BETTER. READY TO GO HOME. LAB. AND OTHER RESULTS DISCUSSED ALONG WITH DIAGNOSIS AND PLAN . ALL QUESTIONS AND CONCERNS ANSWERED . PT. AGREES TO FOLLOW UP RECOMMENDED ILOREN, have personally performed the services described in the documentation, reviewed the documentation, as recorded by the scribe in my presence, and it accurately and completely records mywords and actions. By: Loren Knowles MD Clinical Impression: 1. Generalized anxiety disorder 2. Urinary tract infection without hematuria, site unspecified 3. Essential hypertension 4. 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 Angioedema, initial encounter Astrid Zhu scribed for Loren Knowles MD, in the MD's presence. I electronically signed this note at 5:27 AM on 06/28/2018. Astrid Zhu 06/27/18 2228 Loren Knowles MD 06/28/18 0527 OR DESIGNER/ART DIRECTOR * Farzaneh Salazar RN - 06/27/2018 4:16 PM CST Patient states that she has been having palpitations for a couple days OR DESIGNER/ART DIRECTOR documented in this encounter Miscellaneous Notes * ED Procedure Note - Loren Knowles MD - 06/27/2018 10:19 PM CSTAssociated Order(s): ECG 12 lead Procedure ECG 12 lead Date/Time: 06/27/2018 10:19 PM Performed by: Loren Knowles MD Authorized by: Loren Knowles MD Rate: ECG rate: 91 ECG rate assessment: normal Rhythm: Rhythm: sinus rhythm Ectopy: Ectopy: none QRS: QRS axis: Normal QRS intervals: Normal Conduction: Conduction: normal ST segments: ST segments: Normal T waves: T waves: normal Loren Knowles MD 06/27/18 2219 OR DESIGNER/ART DIRECTOR documented in this encounter Plan of Treatment Not on file documented as of this encounter Procedures Procedure Name Priority Date/Time Associated Diagnosis Comments URINALYSIS AND REFLEX TO MICROSCOPIC Routine 06/27/2018 8:00 PM SENIOR DESIGNER/ART DIRECTOR URINALYSIS, MICROSCOPIC ONLY Routine 06/27/2018 8:00 PM SENIOR DESIGNER/ART DIRECTOR XR CHEST PA LATERAL 2 VIEWS ED 06/27/2018 5:21 PM SENIOR DESIGNER/ART DIRECTOR EGFR STAT 06/27/2018 5:10 PM SENIOR DESIGNER/ART DIRECTOR DIFFERENTIAL AUTO STAT 06/27/2018 5:1 0 PM SENIOR DESIGNER/ART DIRECTOR PRO B-TYPE NATRIURETIC PEPTIDE STAT 06/27/2018 5:10 PM SENIOR DESIGNER/ART DIRECTOR CBC WITH AUTO DIFFERENTIAL STAT 06/27/2018 5:10 PM SENIOR DESIGNER/ART DIRECTOR TSH STAT 06/27/2018 5:10 PM SENIOR DESIGNER/ART DIRECTOR COMPREHENSIVE METABOLIC PANEL STAT 06/27/2018 5:10 PM SENIOR DESIGNER/ART DIRECTOR ECG 12-LEAD STAT 06/27/2018 4:13 PM SENIOR DESIGNER/ART DIRECTOR documented in this encounter Results * (ABNORMAL) Urinalysis, microscopic only (06/27/2018 8:00 PM SENIOR DESIGNER/ART DIRECTOR) WBC, ur 6-10(A) 0 - 5 /HPF [facility] RBC, ur 0-2 0 - 2 /HPF [facility] Epithelial cells, squamous, ur 1-5 0 - 5 /HPF [facility] Mucous, ur Present(A) [facility] Urine 06/27/2018 8:00 PM SENIOR DESIGNER/ART DIRECTOR 06/27/2018 8:12 PM SENIOR DESIGNER/ART DIRECTOR Narrative [facility] - 06/27/2018 9:32 PM SENIOR DESIGNER/ART DIRECTOR Loren Knowles MD LAB URINE ORDERABLES Final Resu lt [facility] [address] Department [place] [address] * (ABNORMAL) Urinalysis reflex to microscopic (06/27/2018 8:00 PM SENIOR DESIGNER/ART DIRECTOR) Color, ur Yellow Yellow [facility] Clarity, ur Clear Clear [facility] Specific gravity, ur 1.017 1.010 - 1.025 [facility] pH, urine 5.0 [facility] Protein, ur ql Negative Negative [facility] Glucose, ur ql Negative Negative [facility] Ketones, ur Negative Negative [facility] Bilirubin, ur Negative Negative [facility] Blood, ur 1+(A) Negative [facility] Urobilinogen, ur <2.0 <2.0 mg/dL [facility] Nitrite, ur Negative Negative [facility] Leukocyte esterase, ur 1+(A) Negative [facility] Urine 06/27/2018 8:00 PM SENIOR DESIGNER/ART DIRECTOR 06/27/2018 8:12 PM SENIOR DESIGNER/ART DIRECTOR Narrative MARY JANE - 06/27/2018 8:41 PM SENIOR DESIGNER/ART DIRECTOR ?? Urine pH is affected by diet, medications, systemic acid-base disturbances, and renal tubular function. ??pH may affect urinary stone formation. ??For example, urine pH below 6.0 may help reduce the tendency for calcium phosphate stones and pH greater than 6.0 may reduce the tendency for uric acid stone formation. Source: [facility]. Last revised 05-04-2017 us Loren Knowles MD LAB URINE ORDERABLES Final Resu lt [facility] [address] Department [place] [address] * XR Chest Pa Lateral 2 Vw (06/27/2018 5:21 PM SENIOR DESIGNER/ART DIRECTOR) Anatomical Region Laterality Modality Body, Chest N/A Computed Radiogr aphy 06/27/2018 5:27 PM SENIOR DESIGNER/ART DIRECTOR Impressions 06/27/2018 5:27 PM SENIOR DESIGNER/ART DIRECTOR Negative study. Electronically signed by: Fabienne Gaspar M.D. Narrative 06/27/2018 5:27 PM SENIOR DESIGNER/ART DIRECTOR RESULT: HISTORY: The patient is a 63-year-old [...] study. Electronically signed by: Fabienne Gaspar M.D. us Hermance Fortune LIME SUPERVISOR IMG XR PROCEDURES Final Resu lt * Pro B-type natriuretic peptide (06/27/2018 5:10 PM SENIOR DESIGNER/ART DIRECTOR) NT-proBNP 23 <=300 pg/mL MARY JANE ARNOLD Comment: Interpretive Comments: A. Dyspnea in Acute [...] Last Revised Date: 2017. Blood specimen (specimen) 06/27/2018 5:10 PM SENIOR DESIGNER/ART DIRECTOR 06/27/2018 7:21 PM SENIOR DESIGNER/ART DIRECTOR Narrative MARY JANE ARNOLD - 06/27/2018 7:44 PM SENIOR DESIGNER/ART DIRECTOR us Rudolph Bauman LIME SUPERVISOR LAB BLOOD ORDERABLES Final R esult [facility] [id number] Department [place] [address] * eGFR (06/27/2018 5:10 PM SENIOR DESIGNER/ART DIRECTOR) eGFR 95 mL/min/1.7 3 m2 MARY JANE ARNOLD Comment: Interpretive Data Reference Interval Normal ?>/= 90 mL/min/1.73m2 Mildly decreased* ? 60 - 89 mL/min/1.73m2 Mildly to moderately decreased ?45 - 59 mL/min/1.73m2 Moderately to severely decreased ??30 - 44 mL/min/1.73m2 Severely decreased ?15 - 29 mL/min/1.73m2 Kidney Failure ?< 15 ??mL/min/1.73m2 *Relative to young adult level If -Bhutanese multiply value by 1.16. Estimated glomerular filtration rate is determined by [...] 70. Current interpretive data was last reviewed 2015. Blood specimen (specimen) 06/27/2018 5:10 PM SENIOR DESIGNER/ART DIRECTOR 06/27/2018 5:13 PM SENIOR DESIGNER/ART DIRECTOR Narrative MARY JANE ARNOLD - 06/27/2018 5:49 PM SENIOR DESIGNER/ART DIRECTOR Rudolph Bauman LIME SUPERVISOR LAB BLOOD ORDERABLES Final R esult MARY JANE [id number] Department [place] [address] * (ABNORMAL) Differential, auto (06/27/2018 5:10 PM SENIOR DESIGNER/ART DIRECTOR) Neutrophil abs 7.8(H) 1.7 - 6.5 K/cumm [facility] Imm gran abs 0.0 0.0 - 0.1 K/cumm [facility] Lymphocyte abs 2.6 0.8 - 3.3 K/cumm [facility] Monocyte abs 0.8 0.2 - 0.8 K/cumm [facility] Eosinophil abs 0.3 0.0 - 0.5 K/cumm [facility] Basophil abs 0.0 0.0 - 0.1 K/cumm [facility] Neutrophil pct 67.3 % [facility] Comment: Interpretive Data Percent cell count reference ranges are not reported, since discordance with absolute values may lead to misinterpretation of CBC data. Current Interpretive Data was last revised on 2017. Imm gran pct 0.4 % [facility] Comment: Interpretive Data Percent cell count reference ranges are not reported, since discordance with absolute values may lead to misinterpretation of CBC data. Current Interpretive Data was last revised on 2017. Lymphocyte pct 22.2 % [facility] Comment: Interpretive Data Percent cell count reference ranges are not reported, since discordance with absolute values may lead to misinterpretation of CBC data. Current Interpretive Data was last revised on 2017. Monocyte pct 7.1 % [facility] Comment: Interpretive Data Percent cell count reference ranges are not reported, since discordance with absolute values may lead to misinterpretation of CBC data. Current Interpretive Data was last revised on 2017. Eosinophil pct 2.6 % [facility] Comment: Interpretive Data Percent cell count reference ranges are not reported, since discordance with absolute values may lead to misinterpretation of CBC data. Current Interpretive Data was last revised on 2017. Basophil pct 0.4 % [facility] Comment: Interpretive Data Percent cell count reference ranges are not reported, since discordance with absolute values may lead to misinterpretation of CBC data. Current Interpretive Data was last revised on 2017. Blood specimen (specimen) 06/27/2018 5:10 PM SENIOR DESIGNER/ART DIRECTOR 06/27/2018 5:13 PM SENIOR DESIGNER/ART DIRECTOR Narrative MARY JANE ARNOLD - 06/27/2018 5:16 PM SENIOR DESIGNER/ART DIRECTOR [email or web address] LAB BLOOD ORDERABLES Final R esult Performing Organization Address [facility] Co de Phone Number MARY JANE ARNOLD [id number] [facility] [place] [address] * TSH (06/27/2018 5:10 PM SENIOR DESIGNER/ART DIRECTOR) Pathologist [facility] Thyroid Stimulating Hormone 1.26 0.30 - 4.20 mcIUnit/mL [facility] Blood specimen (specimen) 06/27/2018 5:10 PM SENIOR DESIGNER/ART DIRECTOR 06/27/2018 5:13 PM SENIOR DESIGNER/ART DIRECTOR Narrative MARY JANE - 06/27/2018 5:49 PM SENIOR DESIGNER/ART DIRECTOR [email or web address] LAB BLOOD ORDERABLES Final R [facility] Performing Organization Address [facility] de Phone Number MARY JANE ARNOLD [phone] [place] [address] * (ABNORMAL) Comprehensive metabolic panel (06/27/2018 5:10 PM SENIOR DESIGNER/ART DIRECTOR) Sodium 140 135 - 145 mmol/L [facility] Potassium, pl 4.4 3.3 - 4.9 mmol/L [facility] Chloride 98 97 - 110 mmol/L [facility] CO2 28 22 - 32 mmol/L [facility] Anion gap 14 2 - 15 mmol/L [facility] BUN 17 8 - 25 mg/dL [facility] Creatinine 0.66 0.60 - 1.10 mg/dL [facility] Glucose 131 70 - 199 mg/dL [facility] Comment: Interpretive Data Fasting glucose >/= [...] interpretive data was last revised 2017. Calcium 10.5(H) 8.5 - 10.3 mg/dL [facility] Bilirubin, total 0.4 0.1 - 1.2 mg/dL [facility] Protein, pl 9.1(H) 6.5 - 8.5 g/dL [facility] Albumin 4.1 3.5 - 5.0 g/dL [facility] Alk phos 99 40 - 130 Units/L [facility] ALT 23 7 - 45 Units/L [facility] AST 19 10 - 45 Units/L [facility] Blood specimen (specimen) 06/27/2018 5:10 PM SENIOR DESIGNER/ART DIRECTOR 06/27/2018 5:13 PM SENIOR DESIGNER/ART DIRECTOR [facility]ative [facility] 06/27/2018 5:49 PM SENIOR DESIGNER/ART DIRECTOR us Rudolph Bauman LIME SUPERVISOR LAB BLOOD ORDERABLES Final R esult [facility] [address] Department [place] [address] * (ABNORMAL) CBC with auto differential (06/27/2018 5:10 PM SENIOR DESIGNER/ART DIRECTOR) WBC 11.6(H) 3.8 - 9.9 K/cumm [facility] Hgb 13.6 11.9 - 15.5 g/dL [facility] Hct 44.5 35.6 - 45.5 % [facility] Plt 352 150 - 400 K/cumm [facility] MPV 9.5 9.1 - 12.3 fL [facility] RBC 4.82 3.90 - 5.20 M/cumm [facility] MCV 92.3 81.3 - 96.4 fL [facility] MCH 28.2 27.1 - 33.3 pg [facility] MCHC 30.6(L) 32.3 - 35.7 g/dL [facility] RDW CV 14.8 11.1 - 14.9 % MARY JANE RDW SD 51.4(H) 35.7 - 48.1 fL [facility] NRBC abs 0.00 0.00 - 0.01 K/cumm MARY JANE Blood specimen (specimen) 06/27/2018 5:10 PM SENIOR DESIGNER/ART DIRECTOR 06/27/2018 5:13 PM SENIOR DESIGNER/ART DIRECTOR Narrative MARY JANE - 06/27/2018 5:16 PM SENIOR DESIGNER/ART DIRECTOR Rudolph Bauman NP LAB BLOOD ORDERABLES Final R esult MARY JANE [address] Department [place] [address] * ECG 12 lead (06/27/2018 4:13 PM SENIOR DESIGNER/ART DIRECTOR) 06/27/2018 4:13 PM SENIOR DESIGNER/ART DIRECTOR Narrative [facility] - 06/28/2018 8:54 AM SENIOR DESIGNER/ART DIRECTOR Vent Rate: 91 bpm RR Interval: 657 msec RI Interval: 127 msec QRS Duration: 92 msec QT Interval: 333 msec QTC Interval: 382 msec P-R-T Surprise: 45 - 16 - 70 degrees SINUS RHYTHM NORMAL ECG NO SIGNIFICANT CHANGE COMPARED TO PRIOR ECG Electronically Signed By: Ramon De MD, [facility] Loren Knowles MD ECG ORDERABLES Final Result Performing Organization Address [facility] Co de Phone Number [facility] documented in this encounter Visit Diagnoses Diagnosis Generalized anxiety disorder- Primary Urinary tract infection without hematuria, site unspecified Essential hypertension Unspecified essential hypertension Type 2 diabetes mellitus with complication, 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 Angioedema, initial encounter documented in this encounter Administered Medications Inactive Administered Medications - up to 3 most recent administrations Medication Order MAR Action Action Date Dose Rate Site dexamethasone (DECADRON) injection 10 mg 10 mg, intravenous, Administer over 2 Minutes, Once, On Mon06/27/18 at 2210, For 1 dose Given 06/27/2018 10:11 PM SENIOR DESIGNER/ART DIRECTOR 10 mg diphenhydrAMINE (BENADRYL) injection 25 mg 25 mg, intravenous, Administer over 2 Minutes, Once, On Mon06/27/18 at 2222, For 1 dose Given 06/27/2018 10:23 PM SENIOR DESIGNER/ART DIRECTOR 25 mg LORazepam (ATIVAN) tablet 1 mg 1 mg, sublingual, Once, On Mon06/27/18 at 1954, For 1 dose Given 06/27/2018 7:59 PM SENIOR DESIGNER/ART DIRECTOR 1 mg sodium chloride 0.9% bolus 1,000 mL 1,000 mL, intravenous, at 1,000 mL/hr, Administer over 1 Hours, Once, On Mon06/27/18 at 1954, For 1 dose New Bag 06/27/2018 8:00 PM SENIOR DESIGNER/ART DIRECTOR 1,000 mL 1000 mL/hr documented in this encounter Discontinued Medications Medication Sig Discontinue Reason Start Date End Da te hydrOXYzine (ATARAX) 25 mg tabletIndications:anxiet y Take 1 tablet (25 mg total) by mouth 4 (four) times a day as needed for itching or anxiety (TONGUE SWELLING) Indications: anxious. Reorder 06/28/2018 06/28/2018 documented as of this encounter Active and Recently Administered Medications Times are shown in SENIOR DESIGNER/ART DIRECTOR. Scheduled Medication Order 06/26/2018 06/27/2018 06/28/2018 dexamethasone (DECADRON) injection 10 mg (COMPLETED) 10 mg, intravenous, Administer over 2 Minutes, Once, On Mon06/27/18 at 2210, For 1 dose 2210 (Given - Provider: Gino Dumont RN) diphenhydrAMINE (BENADRYL) injection 25 mg (COMPLETED) 25 mg, intravenous, Administer over 2 Minutes, Once, On Mon06/27/18 at 2221, For 1 dose 2222 (Given - Provider: Gino Dumont RN) LORazepam (ATIVAN) tablet 1 mg (COMPLETED) 1 mg, sublingual, Once, On Mon06/27/18 at 1954, For 1 dose 1958 (Given - Provider: Gino Dumont RN) sodium chloride 0.9% bolus 1,000 mL (COMPLETED) 1,000 mL, intravenous, at 1,000 mL/hr, Administer over 1 Hours, Once, On Mon06/27/18 at 1954, For 1 dose 1999 (New Bag - Provider: Marko Dumont RN)2134 (Stopped - Provider: Jackie Dumont RN) documented in this encounter Care Teams Underwriting Account Representative Relationship Specialty Start Date End Date Justen Gale MD 2 [facility] [address] [place] [address] PCP - General 10/09/17 Liu Jerez MD Consulting Physician Gastroenterology 07/28/17 [place] [address] [facility] [address] [place] [address] Consulting Physician Pulmonary Disease 08/03/17 Khris Arthur MD [address] [facility] [address] [place] [address] Medical Oncologist/Box Cutter Medical Oncology 10/23/17 [place] [address] [facility] [address] [place] [address] Surgeon Orthopedic Surgery 10/23/17 [place] [address] [facility] [address] [place] [address] Consulting Physician Pain Management 10/23/17 [place] [address] [facility] [address] [place] [address] Referring Physician General Surgery 01/26/18 [place] [address] [facility] [address] [place] [address] Consulting Physician Neurology 01/26/18 documented as of this encounter
--- OUTSIDE RECORDS SUMMARY | 2024-04-26 04:25 | XMS_ITS | Encounter Summary ---
Author Organization [facility] Address [address] [place] [address] Phone Care Team Providers Care Bookkeeping Manager Name Role Phone Liu Jerez MD Unavailable [phone] Albert Corbin MD Unavailable Justen Gale MD Primary Care Provider [phone] Khris Arthur MD Unavailable [phone] Ko Melendez MD Unavailable John Paul Moyer MD Unavailable Annel Rod MD Unavailable Anali MARSHALL MD, Carlos M. 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 Reorder 06/06/2018 07/13/2018 documented as of this encounter Care Teams Bookkeeping Manager Relationship Specialty Start Date End Date Justen Gale MD 2 [facility] [address] [place] [address] PCP - General 10/09/17 Liu Jerez MD Consulting Physician Gastroenterology 07/28/17 [place] [address] [facility] [address] [place] [address] Consulting Physician Pulmonary Disease 08/03/17 Khris Arthur MD [address] [facility] [address] [place] [address] Medical Oncologist/Government Gauger Medical Oncology 10/23/17 [place] [address] [address] Surgeon Orthopedic Surgery 10/23/17 [place] [address] [facility] [address] [place] [address] Consulting Physician Pain Management 10/23/17 [place] [address] [facility] [address] [place] [address] Referring Physician General Surgery 01/26/18 [place] [address] [facility] [address] [place] [address] Consulting Physician Neurology 01/26/18 documented as of this encounter
--- OUTSIDE RECORDS SUMMARY | 2024-04-26 04:25 | XMS_ITS | Encounter Summary ---
Author Organization [facility] Address [address] [place] [address] Phone Care Team Providers Care Kettle Skimmer Name Role Phone Liu Jerez MD Unavailable Albert Corbin MD Unavailable Justen Gale MD Primary Care Provider Khris Arthur MD Unavailable [phone] Ko Melendez MD Unavailable [phone] John Paul Moyer MD Unavailable [phone] Annel Rod MD Unavailable Anali MARSHALL MD, Carlos M. 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 Gender Identity Not on file Sexual Orientation Not on file documented as of this encounter Plan of Treatment Not on file documented as of this encounter Visit Diagnoses Not on filedocumented in this encounter Care Teams Kettle Skimmer Relationship Specialty Start Date End Date Justen Gale MD [address] [address] PCP - General 10/09/17 Liu Jerez MD Consulting Physician Gastroenterology 07/28/17 [place] [address] [id number] [place] [address] Consulting Physician Pulmonary Disease 08/03/17 Khris Arthur MD [address] [facility] [address] [place] [address] Medical Oncologist/Pilling Machine Operator Medical Oncology 10/23/17 [place] [address] [address] Surgeon Orthopedic Surgery 10/23/17 [place] [address] [address] Consulting Physician Pain Management 10/23/17 [place] [address] [address] Referring Physician General Surgery 01/26/18 [place] [address] [facility] [address] [place] [address] Consulting Physician Neurology 01/26/18 documented as of this encounter
--- OUTSIDE RECORDS SUMMARY | 2024-04-26 04:25 | XMS_ITS | Encounter Summary ---
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 Unavailable Reason for Visit * Reason Comments Flu Symptoms Vomiting Shortness of Breath Encounter Details Date Type Department Care Team (Late st Contact Info) Description 03/17/2018 7:16 AM BUYER ASSISTANT - 03/17/2018 2:55 PM [facility] Emergency [facility] Emergency Department [id number] [place] [address] Maria D Meyer, [address] [place] [address] Obstructive sleep apnea (Primary Dx); SOB (shortness of breath); Anxiety; Nonintractable headache, unspecified chronicity pattern, unspecified headache type Discharge Disposition: Discharge to home or self care Social History Tobacco Use Types Packs/Day Years Used Date Smoking Tobacco: Former Smokeless Tobacco: Never Comments:remote tobacco use Alcohol Use Standard Drinks/Week Comments No 0 (1 standard drink = 0.6 oz pur e alcohol) Comments No Sex and Gender Information Value Date Recorded Sex Assigned at Not on file Legal Sex Female 12:24 AM BUYER ASSISTANT Gender Identity Not on file Sexual Orientation Not on file documented as of this encounter Last Filed Vital Signs Vital Sign Reading Time Taken Comments Blood Pressure 139/82 03/17/2018 2:35 PM BUYER ASSISTANT Pulse 89 03/17/2018 12:00 PM BUYER ASSISTANT Temperature 37.1 ??C (98.8 ??F) 03/17/2018 6:15 AM CS T Respiratory Rate 20 03/17/2018 2:30 PM BUYER ASSISTANT Oxygen Saturation 98% 03/17/2018 2:30 PM BUYER ASSISTANT Inhaled Oxygen Concentration - - Weight 127 kg (279 lb 15.8 oz) 03/17/2018 3:09 A M BUYER ASSISTANT Height 152.4 cm (5') 03/17/2018 3:09 AM BUYER ASSISTANT Body Mass Index 54.68 03/17/2018 3:09 AM BUYER ASSISTANT documented in this encounter Discharge Instructions * Attachments The following attachments cannot be sent through Care Everywhere. * Dyspnea (AfterCare(R) Instructions(ER/ED)) (Salvadorean) documented in this encounter Medications at [...] tablet 03/17/2018 1 exemestane (AROMASIN) 25 mg tablet TAKE [...] 02/20/2018 9 documented as of this encounter Ordered Prescriptions Prescription Sig Dispense Quantity Refills Last Filled Start Date End Date oxyCODONE-acetamin ophen (PERCOCET) 5-325 mg per tabletIndications: Pain Take 1 tablet by mouth every 6 (six) hours as needed for pain. 6 tablet 03/17/2018 10/29/2020 diazePAM (VALIUM) 5 mg tablet Take 1 tablet (5 mg total) by mouth every 8 (eight) hours as needed for anxiety. 10 tablet 03/17/2018 10/29/2020 documented in this encounter Discharge Disposition Disposition Code Departure Means Destination Discharge to home or self care documented in this encounter ED Notes * Maria D Meyer, DO - 03/17/2018 7:40 AM CSTAssociated Order(s): ECG 12-LEAD HPI Chief Complaint Patient presents with ??? Flu Symptoms ??? Vomiting ??? Shortness of Breath 7:31 AM Karly Marques is a 62 y.o. female with h/o HTN, adiposity, osteoarthritis, depression disorder of thyroid, DVT, breast cancer, PE, diabetes, CHF, sleep apnea, cholecystectomy, Inguinal hernia repair, knee arthroplasty,and section who presents to the ED via EMS for evaluation ofSOB which woke her up from sleep prior to ED arrival. The pt states that she woke up from sleep gasping for air . Patient report that she did not feel good the last couple days. The pt denies any other pertinent sx at this time. Patient lives with her and daughter. Per chart review, patient had an ED visit on 02/24/2018 at [facility] for chest pain, SOB,and hyperglycemia and was discharged on the same day. Patient History Patient Active Problem List Diagnosis Date Noted ??? Dyslipidemia ??? History of breast cancer ??? Other chronic pain ??? CVA (cerebral vascular accident) ([facility] 01/24/2018 ??? Breast CA ([facility]) 01/24/2018 ??? Anxiety and depression 11/12/2017 ??? Uncontrolled type 2 diabetes mellitus with hyperglycemia, with long-term current use of insulin([facility]) 11/06/2017 ??? Allergy to drug 11/06/2017 ??? Dysuria 10/26/2017 ??? Acute left-sided low back pain with left-sided sciatica 10/23/2017 ??? Type 2 diabetes mellitus with neurologic complication, without long-term current use of insulin([facility]) 10/23/2017 ??? Essential hypertension 10/23/2017 ??? Long-term [...] gallbladder surgery ??? CHOLECYSTECTOMY gallbladder removal ??? FINE NEEDLE ASPIRATION W IMAGE GUIDANCE N/A 07/25/2014 ??? HERNIA REPAIR Hernia repair ??? INGUINAL HERNIA REPAIR Hernia repair, inguinal ??? KNEE ARTHROPLASTY Knee replacement ??? KNEE [...] history of restless leg syndrome; Social History Substance Use Topics ??? Smoking status: Former Smoker ??? Smokeless tobacco: Never Used Comment: remote tobacco use ??? Alcohol use No Social History Social History Narrative ??? No narrative on file Review of Systems Review of Systems Constitutional: Negative. Negative for activity change, appetite change, chills, diaphoresis, fatigue and fever. Trouble sleeping due to SOB HENT: Negative. Negative for congestion, drooling, sore throat and trouble swallowing. Eyes: Negative. Negative for pain and visual disturbance. Respiratory: Positive for shortness of breath. Negative for apnea, cough, choking, chest tightness,wheezing and stridor. Cardiovascular: Negative. Negative for chest pain and palpitations. Gastrointestinal: Negative. Negative for abdominal distention, abdominal pain, diarrhea, nausea andvomiting. Genitourinary: Negative. Negative for decreased urine volume, difficulty urinating, flank pain and urgency. Musculoskeletal: Negative for arthralgias, gait problem and myalgias. Skin: Negative for pallor. Neurological: Negative for dizziness, syncope, speech difficulty, weakness, light-headedness, numbness and headaches. Physical Exam ED Triage Vitals [03/17/18 0309] Temp Pulse Resp BP SpO2 36.4 ??C (97.6 ??F) 76 17 118/77 94 % Temp src Heart Rate Source Patient Position BP Location FiO2 (%) Oral Monitor Sitting Right arm -- Physical Exam Constitutional: She is oriented to person, place, and time. She appears well- developed and well-nourished. No distress. obese HENT: Head: Normocephalic and atraumatic. Nose: Nose normal. Mouth/Throat: Oropharynx is clear and moist. Eyes: Pupils are equal, round, and reactive to light. Conjunctivae and EOM are normal. Neck: Normal range of motion. Neck supple. Cardiovascular: Normal rate, regular rhythm, normal heart sounds and intact distal pulses. Pulmonary/Chest: Effort normal and breath sounds normal. No respiratory distress. Abdominal: Soft. She exhibits no distension. There is no tenderness. Musculoskeletal: Normal range of motion. She exhibits no edema, tenderness or deformity. Neurological: She is alert and oriented to person, place, and time. She has normal strength. No cranial nerve deficit or sensory deficit. Coordination and gait normal. GCS eye subscore is 4. GCS verbal subscore is 5. GCS motor subscore is 6. Skin: Skin is warm and dry. She is not diaphoretic. Psychiatric: Her mood appears anxious. Nursing note and vitals reviewed. [facility] Vitals: 03/17/18 1330 03/17/18 1345 03/17/18 1400 03/17/18 1415 BP: BP Location: Patient Position: Pulse: Resp: Temp: TempSrc: SpO2: 95% 96% 99% 97% Weight: Height: Labs Reviewed CBC WITH AUTO DIFFERENTIAL - Abnormal Result Value WBC 11.3 (*) Hgb 12.1 Hct 39.0 Plt 300 MPV 9.8 RBC 4.38 MCV 89.0 MCH 27.6 MCHC 31.0 (*) RDW CV 14.8 RDW SD 48.0 NRBC Abs 0.00 Narrative: COMPREHENSIVE METABOLIC PANEL - Abnormal Sodium 137 Potassium, pl 4.7 Chloride 101 CO2 27 Anion Gap 14 BUN 13 Creatinine 0.66 Glucose 215 (*) Calcium 9.7 Bilirubin, total 0.50 Protein, pl 7.6 Albumin 3.4 Alk phos 87 ALT 20 AST 19 Narrative: DIFFERENTIAL AUTO - Abnormal Neutrophil absolute 7.6 (*) Immature granulocyte absolute 0.0 Lymphocytes absolute 2.4 Monocyte absolute 0.9 (*) Eosinophils absolute 0.3 Basophils, abs 0.0 Neutrophils 67.4 Immature granulocytes 0.4 Lymphocytes 21.5 Monocytes 7.8 Eosinophils 2.5 Basophils 0.4 Narrative: INFLUENZA A/B ANTIGEN Influenza A Ag Negative Influenza B Ag Negative Narrative: B-TYPE NATRIURETIC PEPTIDE B-Type Natriuretic Peptide (BNP) 18 Narrative: TROPONIN I Troponin I <0.03 Narrative: EGFR GFR 95 Narrative: XR Chest 1 Vw Portable Final Result Mild vascular congestion. Electronically signed by: Avelino Alonso M.D. ECG 12 lead Date/Time: 03/17/2018 2:23 PM Performed by: MARIA D MEYER Authorized by: ERICK DAVIS Rate: ECG rate: 70 ECG rate assessment: normal Rhythm: Rhythm: sinus rhythm Ectopy: Ectopy: none ST segments: ST segments: Normal T waves: T waves: normal Interpretation: Interpretation: non-specific MDM Number of Diagnoses or Management Options Anxiety: Nonintractable headache, unspecified chronicity pattern, unspecified headache type: Obstructive sleep apnea: SOB (shortness of breath): Amount and/or Complexity of Data Reviewed Clinical lab tests: ordered and reviewed Review and summarize past medical records: yes Independent visualization of images, tracings, or specimens: yes Patient Progress Patient progress: stable ED Course as of Mar 17 1423 Time: 03/17 740 Comment: Pre-hypertension/Hypertension: The patient has been informed that they may have pre-hypertension or Hypertension based on a blood pressure reading in the Emergency Department. I recommend that the patient call the primary care provider listed on their discharge instructions or a physician of their choice this week to arrange follow up for further evaluation of possible pre- hypertension or Hypertension. By: Xavier Torres Time: 03/17 1421 Comment: Rechecked patient. Condition is improved. Discussed with the patient the plan of care and diagnosis. Discussed the results of ED findings, and the plan for discharge. Recommended follow up with PCP or return to ED if symptoms worsen or do not improve over time. Patient understands and agrees with plan. All other questions have been addressed By: Maria D Meyer DO Diagnoses that have been ruled out: None Diagnoses that are still under consideration: None Final diagnoses: Obstructive sleep apnea SOB (shortness of breath) Anxiety Nonintractable headache, unspecified chronicity pattern, unspecified headache type PATIENT DISCHARGED Obstructive sleep apnea SOB (shortness of breath) Anxiety Nonintractable headache, unspecified chronicity pattern, unspecified headache type This note was prepared by Xavier Torres, acting as a Scribe for Maria D Meyer DO. I electronically signed this note at 7:40 AM on 03/17/2018. I, Maria D Meyer DO, personally performed the services described in this documentation, reviewed and edited the documentation which was dictated to the scribe in my presence, and it accurately records my words and actions. Maria D Meyer DO 03/17/18 1424 R ASSISTANT * Mariely Wolf RN - 03/17/2018 3:40 AM CST Chest Xray complete and pt back in waiting room sitting in locked wheelchair. R ASSISTANT * Mariely Wolf RN - 03/17/2018 3:09 AM CST Pt presents to the ED form home via EMS with reports of flulike symptoms, increased SOB Pt reports she was wearing her CPAP today and woke up gasping for air. EMS reports VS in route 146/90 HR 84 98%on RA upon arrival and 98% on 2 l NC in route. EMS gained 20 G IV in right hand and 4 mg Zofran wasgiven. Pt denies CP. EKG has been completed in triage R ASSISTANT documented in this encounter Plan of Treatment Not on file documented as of this encounter Procedures Procedure Name Priority Date/Time Associated Diagnosis Comments EGFR STAT 03/17/2018 8:55 AM BUYER ASSISTANT DIFFERENTIAL AUTO STAT 03/17/2018 8:5 5 AM BUYER ASSISTANT CBC WITH AUTO DIFFERENTIAL STAT 03/17/2018 8:55 AM BUYER ASSISTANT TROPONIN I STAT 03/17/2018 8:55 AM BUYER ASSISTANT B-TYPE NATRIURETIC PEPTIDE STAT 03/17/2018 8:55 AM BUYER ASSISTANT COMPREHENSIVE METABOLIC PANEL STAT 03/17/2018 8:55 AM BUYER ASSISTANT XR CHEST 1 VIEW ED 03/17/2018 3:45 AM BUYER ASSISTANT INFLUENZA A/B ANTIGEN STAT 03/17/2018 3:21 AM BUYER ASSISTANT ECG 12-LEAD STAT 03/17/2018 3:04 AM BUYER ASSISTANT documented in this encounter Results * eGFR (03/17/2018 8:55 AM BUYER ASSISTANT) [facility] eGFR 95 mL/min/1.7 3 m2 MARY JANE Comment: Interpretive Data Reference Interval Normal ?>/= 90 mL/min/1.73m2 Mildly decreased* ? 60 - 89 mL/min/1.73m2 Mildly to moderately decreased ?45 - 59 mL/min/1.73m2 Moderately to severely decreased ??30 - 44 mL/min/1.73m2 Severely decreased ?15 - 29 mL/min/1.73m2 Kidney Failure ?< 15 ??mL/min/1.73m2 *Relative to young adult level If -Fijian multiply value by 1.16. Estimated glomerular filtration [...] was last reviewed 2015. Blood specimen (specimen) 03/17/2018 8:55 AM BUYER ASSISTANT 03/17/2018 9:02 AM BUYER ASSISTANT Narrative [facility] - 03/17/2018 9:20 AM BUYER ASSISTANT us Maria D Meyer DO LAB BLOOD ORDERABLES Final Res ult MARY JANE [address] [address] Department [place] [address] * (ABNORMAL) Differential, auto (03/17/2018 8:55 AM BUYER ASSISTANT) Neutrophil abs 7.6(H) 1.7 - 6.5 K/cumm [facility] Imm gran abs 0.0 0.0 - 0.1 K/cumm [facility] Lymphocyte abs 2.4 0.8 - 3.3 K/cumm [facility] Monocyte abs 0.9(H) 0.2 - 0.8 K/cumm [facility] Eosinophil abs 0.3 0.0 - 0.5 K/cumm [facility] Basophil abs 0.0 0.0 - 0.1 K/cumm [facility] Neutrophil pct 67.4 % [facility] Comment: Interpretive Data Percent cell count reference ranges are not reported, since discordance with absolute values may lead to misinterpretation of CBC data. Current Interpretive Data was last revised on 2017. Imm gran pct 0.4 % [facility] Comment: Interpretive Data Percent cell count reference ranges are not reported, since discordance with absolute values may lead to misinterpretation of CBC data. Current Interpretive Data was last revised on 2017. Lymphocyte pct 21.5 % [facility] Comment: Interpretive Data Percent cell count reference ranges are not reported, since discordance with absolute values may lead to misinterpretation of CBC data. Current Interpretive Data was last revised on 2017. Monocyte pct 7.8 % [facility] Comment: Interpretive Data Percent cell count reference ranges are not reported, since discordance with absolute values may lead to misinterpretation of CBC data. Current Interpretive Data was last revised on 2017. Eosinophil pct 2.5 % [facility] Comment: Interpretive Data Percent cell count reference ranges are not reported, since discordance with absolute values may lead to misinterpretation of CBC data. Current Interpretive Data was last revised on 2017. Basophil pct 0.4 % [facility] Comment: Interpretive Data Percent cell count reference ranges are not reported, since discordance with absolute values may lead to misinterpretation of CBC data. Current Interpretive Data was last revised on 2017. Blood specimen (specimen) 03/17/2018 8:55 AM BUYER ASSISTANT 03/17/2018 9:02 AM BUYER ASSISTANT Narrative [facility] - 03/17/2018 9:16 AM BUYER ASSISTANT us Maria D Meyer DO LAB BLOOD ORDERABLES Final Res ult Performing Organization Address [facility] Co de Phone Number MARY JANE ARNOLD [address] [address] [facility] [address] [place], [place] [id number] * Troponin I (03/17/2018 8:55 AM BUYER ASSISTANT) Pathologist [facility] Troponin I <0.03 0.00 - 0.14 ng/mL [facility] Comment: Interpretive Data Normal: ? 0.00 - 0.14 ng/mL Indeterminate: ?0.15 - 0.50 ng/mL ID / Cardiac Muscle Damage: ? >0.50 ng/mL Current interpretive data was last reviewed 2015 Blood specimen (specimen) 03/17/2018 8:55 AM BUYER ASSISTANT 03/17/2018 9:02 AM BUYER ASSISTANT Narrative [facility] - 03/17/2018 9:24 AM BUYER ASSISTANT Maria D Meyer DO LAB BLOOD ORDERABLES Final Res ult Performing Organization Address [facility] Co de Phone Number MARY JANE ARNOLD [address] [address] [facility] [place] [address] * B-type natriuretic peptide (03/17/2018 8:55 AM BUYER ASSISTANT) Pathologist [facility] B-Type Natriuretic Peptide (BNP) 18 0 - 100 pg/mL [facility] Blood specimen (specimen) 03/17/2018 8:55 AM BUYER ASSISTANT 03/17/2018 9:02 AM BUYER ASSISTANT Narrative [facility] - 03/17/2018 9:28 AM BUYER ASSISTANT Maria D Meyer DO LAB BLOOD ORDERABLES Final Res ult Performing Organization Address [facility] Co de Phone Number MARY JANE ARNOLD [address] [address] [facility] [place] [address] * (ABNORMAL) Comprehensive metabolic panel (03/17/2018 8:55 AM BUYER ASSISTANT) Sodium 137 135 - 145 mmol/L [facility] Potassium, pl 4.7 3.5 - 5.1 mmol/L [facility] Chloride 101 100 - 114 mmol/L [facility] CO2 27 22 - 32 mmol/L [facility] Anion gap 14 8 - 16 mmol/L [facility] BUN 13 8 - 24 mg/dL [facility] Creatinine 0.66 0.60 - 1.30 mg/dL [facility] Glucose 215(H) 70 - 199 mg/dL [facility] Comment: Interpretive Data Fasting glucose >/= 126 [...] interpretive data was last revised 2017. Calcium 9.7 8.4 - 10.5 mg/dL [facility] Bilirubin, total 0.50 0.10 - 1.30 mg/dL [facility] Protein, pl 7.6 6.0 - 8.3 g/dL [facility] Albumin 3.4 3.2 - 4.8 g/dL [facility] Alk phos 87 30 - 110 Units/L [facility] ALT 20 1 - 45 Units/L [facility] AST 19 7 - 40 Units/L [facility] Blood specimen (specimen) 03/17/2018 8:55 AM BUYER ASSISTANT 03/17/2018 9:02 AM BUYER ASSISTANT Narrative [facility] - 03/17/2018 9:20 AM BUYER ASSISTANT us Maria D Meyer DO LAB BLOOD ORDERABLES Final Res ult MARY JANE ARNOLD [address] Department [place] [address] * (ABNORMAL) CBC with auto differential (03/17/2018 8:55 AM BUYER ASSISTANT) WBC 11.3(H) 3.8 - 9.9 K/cumm [facility] Hgb 12.1 11.9 - 15.5 g/dL [facility] Hct 39.0 35.6 - 45.5 % [facility] Plt 300 150 - 400 K/cumm [facility] MPV 9.8 9.1 - 12.3 fL [facility] RBC 4.38 3.90 - 5.20 M/cumm [facility] MCV 89.0 81.3 - 96.4 fL [facility] MCH 27.6 27.1 - 33.3 pg [facility] MCHC 31.0(L) 32.3 - 35.7 g/dL [facility] RDW CV 14.8 11.1 - 14.9 % [facility] RDW SD 48.0 35.7 - 48.1 fL [facility] NRBC abs 0.00 0.00 - 0.01 K/cumm [facility] Blood specimen (specimen) 03/17/2018 8:55 AM BUYER ASSISTANT 03/17/2018 9:02 AM BUYER ASSISTANT Narrative [facility] - 03/17/2018 9:16 AM BUYER ASSISTANT Maria D Meyer DO LAB BLOOD ORDERABLES Final Res ult MARY JANE [address] Department [place] [address] * XR Chest 1 Vw Portable (03/17/2018 3:45 AM BUYER ASSISTANT) Anatomical Region Laterality Modality Body, Chest N/A Computed Radiogr aphy 03/17/2018 10:2 5 AM BUYER ASSISTANT Impressions 03/17/2018 10:26 AM BUYER ASSISTANT Mild vascular congestion. Electronically signed by: Avelino Alonso M.D. Narrative 03/17/2018 10:26 AM BUYER ASSISTANT RESULT: EXAMINATION: AP PORTABLE CHEST RADIOGRAPH Date: 03/17/2018 3:25 AM History: Shortness of breath Comparison: 02/24/2018. Findings: Normal heart size. ??No pleural effusion, focal consolidation, or pneumothorax. ??Mild vascular congestion is noted. No acute osseous finding. Procedure Note Omodon, Avelino Huy, MD - 03/17/2018 RESULT: EXAMINATION: AP PORTABLE CHEST RADIOGRAPH Date: 03/17/2018 3:25 AM History: Shortness of breath Comparison: 02/24/2018. Findings: Normal heart size. No pleural effusion, focal consolidation, or pneumothorax. Mild vascular congestion is noted. No acute osseous finding. IMPRESSION: Mild vascular congestion. Electronically signed by: Avelino Alonso M.D. Result [facility] Erick Davis MD IMG XR PROCEDURES Final Re sult * Influenza A/B Antigen Nasopharyngeal (03/17/2018 3:21 AM BUYER ASSISTANT) Pathologist [facility] Influenza A Ag Negative [facility] Influenza B Ag Negative [facility] Comment: The BD Veritor System for Rapid Detection of Flu A+B is a differentiated test, such that influenza A viral antigens can be distinguished from influenza B viral antigens from a single processed sample using a single device. The test is to be used as an aid in the diagnosis of influenza A and B viral infections. A negative test is presumptive and it is recommended that these results be confirmed by an FDA- cleared influenza A and B molecular assay. Negative test results do not preclude influenza viral infection and should not be used as the sole basis for treatment or other patient management decisions. The test is not intended to detect influenza C antigens. Interpretive data last reviewed 2018 Nasopharyngeal 03/17/2018 3: 21 AM BUYER ASSISTANT 03/17/2018 3:41 AM BUYER ASSISTANT Narrative [facility] - 03/17/2018 3:55 AM BUYER ASSISTANT Erick Davis MD LAB MICROBIOLOGY - GENERAL ORDERABLES Final Result [facility] [address] Department [place] [address] * ECG 12-LEAD (03/17/2018 3:04 AM BUYER ASSISTANT) Patient age 62 years [facility] Interpretation Text SINUS RHYTHMNORMAL ECGPREVIOUS TRACIN02/24/2018 03.20No significant changes noted [facility] Comment:Physician Interprete r Dr. Opal Koo M.D. Ventricular Rate EKG/Min 78 /min [facility] P Wave Duration 111 ms [facility] QRS-Interval (MSEC) 81 ms [facility] AL-Interval (MSEC) 131 ms [facility] QT Interval 354 ms [facility] QTc 385 ms [facility] QTC Interval ms [facility] P [place] 9 deg [facility] QRS [place] 6 deg [facility] T [place] 32 deg [facility] 03/17/2018 3:04 AM BUYER ASSISTANT Narrative Procedure Note Maria D Meyer, DO - 03/17/2018 7:40 AM CST HPI Chief Complaint Patient presents with ? ? Flu Symptoms ? ? Vomiting ? ? Shortness of Breath 7:31 AM Karly Marques is a 62 y.o. female with h/o HTN, adiposity,osteoarthritis, depression disorder of thyroid, DVT, breast cancer, PE,diabetes, CHF, sleep apnea, cholecystectomy, Inguinal hernia repair, kneearthroplasty,and section who presents to the ED via EMS forevaluation of SOB which woke her up from sleep prior to ED arrival. The ptstates that she woke up from sleep gasping for air . Patient report thatshe did not feel good the last couple days. The pt denies any otherpertinent sx at this time. Patient lives with her and daughter. Per chart review, patient had an ED visit on 02/24/2018 at [facility] for chest pain, SOB, and hyperglycemia and was discharged onthe same day. Patient History Patient Active Problem List Diagnosis Date Noted ? ? Dyslipidemia ? ? History of breast cancer ? ? Other chronic pain ? ? CVA (cerebral vascular accident) ([facility]/HCC) 01/24/2018 ? ? Breast CA (CMS/HCC) 01/24/2018 ? ? Anxiety and depression 11/12/2017 ? ? Uncontrolled type 2 diabetes mellitus with hyperglycemia, with long-termcurrent use of insulin ([facility]) 11/06/2017 ? ? Allergy to drug 11/06/2017 ? ? Dysuria 10/26/2017 ? ? Acute left-sided low back pain with left-sided sciatica 10/23/2017 ? ? Type 2 diabetes mellitus with neurologic complication, without long-termcurrent use of insulin (CMS/HCC) 10/23/2017 ? ? Essential hypertension 10/23/2017 ? ? Long-term current use of opiate analgesic 10/23/2017 ? ? Lumbosacral spondylosis without myelopathy 10/23/2017 ? ? Radiculopathy, lumbosacral region 10/23/2017 ? ? Spinal stenosis of lumbar region without neurogenic [id number]/02/2018 ? ? 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 ? ? Type 2 diabetes mellitus with hyperglycemia, without long-term currentuse of insulin (CMS/HCC) ? ? Constipation ? ? Malignant neoplasm of upper-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(CMS/HCC) 10/17/2017 ? ? Cancer of overlapping sites of left female breast (CMS/HCC) 10/13/2017 ? ? Chronic anticoagulation ? ? Restless leg syndrome ? ? Chest pressure 08/01/2017 ? ? Positive blood culture 08/01/2017 ? ? Hyponatremia 08/01/2017 ? ? Diet-controlled diabetes mellitus (CMS/HCC) 08/01/2017 ? ? LUL (obstructive sleep apnea) 08/01/2017 ? ? History of DVT (deep vein thrombosis) 08/01/2017 ? ? History of pulmonary embolism 08/01/2017 ? ? Essential hypertension ? ? Generalized weakness 07/27/2017 ? ? Dyspnea 07/27/2017 ? ? Unintentional weight loss 07/27/2017 ? ? Acute cystitis without hematuria 07/27/2017 ? ? Nausea and vomiting 07/26/2017 ? ? Pulmonary embolism (CMS/HCC) 08/09/2016 Class: Chronic ? ? Lymphedema of left upper extremity 08/09/2016 Class: Chronic ? ? Pain of foot 01/26/2015 Class: Chronic ? ? Arthralgia of ankle 01/26/2015 Class: Chronic ? ? Rash 11/11/2014 Class: Chronic ? ? Cellulitis of breast 11/11/2014 Class: Chronic ? ? Restless legs syndrome 03/12/2013 Class: Chronic ? ? Pain of lower extremity 03/12/2013 Class: Chronic Past Medical History: Diagnosis Date ? ? Adiposity obesity ? ? Breast CA (CMS/HCC) ? ? Cancer (CMS/HCC) breast ? ? CHF (congestive heart failure) (CMS/HCC) ? ? Depression Depression ? ? Diabetes (CMS/HCC) ? ? Disorder of thyroid Thyroid disease ? ? DVT (deep venous thrombosis) (CMS/HCC) ? ? HX OTHER MEDICAL restless leg syndrome ? ? HX OTHER MEDICAL RLS ? ? Hypertension Hypertension ? ? Osteoarthritis osteoarthritis ? ? PE (pulmonary thromboembolism) (CMS/HCC) ? ? Sleep apnea Past Surgical History: Procedure Laterality Date ? ? ABSCESS CATHETER INJECTION N/A 11/26/2014 ? ? ABSCESS CATHETER INJECTION N/A 11/26/2014 ? ? ABSCESS CATHETER INJECTION N/A 11/14/2014 ? ? ABSCESS CATHETER INJECTION N/A 11/05/2014 ? ? ABSCESS TUBE EXCHANGE N/A 11/05/2014 ? ? BREAST SURGERY ? ? SECTION section ? ? CHOLECYSTECTOMY Cholecystectomy ? ? CHOLECYSTECTOMY gallbladder surgery ? ? CHOLECYSTECTOMY gallbladder removal ? ? FINE NEEDLE ASPIRATION W IMAGE GUIDANCE N/A 07/25/2014 ? ? HERNIA REPAIR Hernia repair ? ? INGUINAL HERNIA REPAIR Hernia repair, inguinal ? ? KNEE ARTHROPLASTY Knee replacement ? ? KNEE ARTHROPLASTY R knee replacement ? ? OOPHORECTOMY ovary removed ? ? OTHER SURGICAL HISTORY 2012 : Right Total Knee Replacement ? ? OTHER SURGICAL HISTORY R ovary removed ? ? US SOFT TISSUE ABSCESS DRAIN N/A 12/11/2014 ? ? US SOFT TISSUE ABSCESS DRAIN N/A 10/24/2014 Family History Problem Relation Age of Onset ? ? Heart failure Mother Congestive Heart Failure; ? ? Stroke Mother Stroke; Cause of : Stroke ? ? Heart disease Mother Heart disease; ? ? Diabetes Mother Diabetes mellitus; ? ? Other Mother heart diesease; Cause of : heart diesease ? ? Heart attack Brother Myocardial Infarction; Cause of : Myocardial Infarction ? ? Stent Brother Coronary Stent Placement; ? ? Prostate cancer Father Cancer, prostate; /Cancer, prostate; Cause of : Cancer, prostate ? ? Other Father hemochromotosis; ? ? Breast cancer Sister Cancer, breast; ? ? Other Other Family history of restless leg syndrome; Social History Substance Use Topics ? ? Smoking status: Former Smoker ? ? Smokeless tobacco: Never Used Comment: remote tobacco use ? ? Alcohol use No Social History Social History Narrative ? ? No narrative on file Review of Systems Review of Systems Constitutional: Negative. Negative for activity change, appetite change,chills, diaphoresis, fatigue and fever. Trouble sleeping due to SOB HENT: Negative. Negative for congestion, drooling, sore throat andtrouble swallowing. Eyes: Negative. Negative for pain and visual disturbance. Respiratory: Positive for shortness of breath. Negative for apnea, cough,choking, chest tightness, wheezing and stridor. Cardiovascular: Negative. Negative for chest pain and palpitations. Gastrointestinal: Negative. Negative for abdominal distention, abdominalpain, diarrhea, nausea and vomiting. Genitourinary: Negative. Negative for decreased urine volume, difficultyurinating, flank pain and urgency. Musculoskeletal: Negative for arthralgias, gait problem and myalgias. Skin: Negative for pallor. Neurological: Negative for dizziness, syncope, speech difficulty,weakness, light-headedness, numbness and headaches. Physical Exam ED Triage Vitals [03/17/18 0309] Temp Pulse Resp BP SpO2 36.4 ??C (97.6 ??F) 76 17 118/77 94 % Temp src Heart Rate Source Patient Position BP Location FiO2 (%) Oral Monitor Sitting Right arm -- Physical Exam Constitutional: She is oriented to person, place, and time. She appearswell- developed and well-nourished. No distress. obese HENT: Head: Normocephalic and atraumatic. Nose: Nose normal. Mouth/Throat: Oropharynx is clear and moist. Eyes: Pupils are equal, round, and reactive to light. Conjunctivae and EOMare normal. Neck: Normal range of motion. Neck supple. Cardiovascular: Normal rate, regular rhythm, normal heart sounds andintact distal pulses. Pulmonary/Chest: Effort normal and breath sounds normal. No respiratorydistress. Abdominal: Soft. She exhibits no distension. There is no tenderness. Musculoskeletal: Normal range of motion. She exhibits no edema, tendernessor deformity. Neurological: She is alert and oriented to person, place, and time. Shehas normal strength. No cranial nerve deficit or sensory deficit.Coordination and gait normal. GCS eye subscore is 4. GCS verbal subscoreis 5. GCS motor subscore is 6. Skin: Skin is warm and dry. She is not diaphoretic. Psychiatric: Her mood appears anxious. Nursing note and vitals reviewed. [facility] Vitals: 03/17/18 1330 03/17/18 1345 03/17/18 1400 03/17/18 1415 BP: BP Location: Patient Position: Pulse: Resp: Temp: TempSrc: SpO2: 95% 96% 99% 97% Weight: Height: Labs Reviewed CBC WITH AUTO DIFFERENTIAL - Abnormal Result Value WBC 11.3 (*) Hgb 12.1 Hct 39.0 Plt 300 MPV 9.8 RBC 4.38 MCV 89.0 MCH 27.6 MCHC 31.0 (*) RDW CV 14.8 RDW SD 48.0 NRBC Abs 0.00 Narrative: COMPREHENSIVE METABOLIC PANEL - Abnormal Sodium 137 Potassium, pl 4.7 Chloride 101 CO2 27 Anion Gap 14 BUN 13 Creatinine 0.66 Glucose 215 (*) Calcium 9.7 Bilirubin, total 0.50 Protein, pl 7.6 Albumin 3.4 Alk phos 87 ALT 20 AST 19 Narrative: DIFFERENTIAL AUTO - Abnormal Neutrophil absolute 7.6 (*) Immature granulocyte absolute 0.0 Lymphocytes absolute 2.4 Monocyte absolute 0.9 (*) Eosinophils absolute 0.3 Basophils, abs 0.0 Neutrophils 67.4 Immature granulocytes 0.4 Lymphocytes 21.5 Monocytes 7.8 Eosinophils 2.5 Basophils 0.4 Narrative: INFLUENZA A/B ANTIGEN Influenza A Ag Negative Influenza B Ag Negative Narrative: B-TYPE NATRIURETIC PEPTIDE B-Type Natriuretic Peptide (BNP) 18 Narrative: TROPONIN I Troponin I <0.03 Narrative: EGFR GFR 95 Narrative: XR Chest 1 Vw Portable Final Result Mild vascular congestion. Electronically signed by: Avelino Alonso M.D. ECG 12 lead Date/Time: 03/17/2018 2:23 PM Performed by: MARIA D MEYER Authorized by: ERICK DAVIS Rate: ECG rate: 70 ECG rate assessment: normal Rhythm: Rhythm: sinus rhythm Ectopy: Ectopy: none ST segments: ST segments: Normal T waves: T waves: normal Interpretation: Interpretation: non-specific MDM Number of Diagnoses or Management Options Anxiety: Nonintractable headache, unspecified chronicity pattern, unspecifiedheadache type: Obstructive sleep apnea: SOB (shortness of breath): Amount and/or Complexity of Data Reviewed Clinical lab tests: ordered and reviewed Review and summarize past medical records: yes Independent visualization of images, tracings, or specimens: yes Patient Progress Patient progress: stable ED Course as of Mar 17 1423 Time: 03/17 0740 Comment: Pre-hypertension/Hypertension: The patient has been informed thatthey may have pre-hypertension or Hypertension based on a blood pressurereading in the Emergency Department. I recommend that the patient callthe primary care provider listed on their discharge instructions or aphysician of their choice this week to arrange follow up for furtherevaluation of possible pre-hypertension or Hypertension. By: Xavier Torres Time: 03/17 1421 Comment: Rechecked patient. Condition is improved. Discussed with thepatient the plan of care and diagnosis. Discussed the results of EDfindings, and the plan for discharge. Recommended follow up with PCP orreturn to ED if symptoms worsen or do not improve over time. Patientunderstands and agrees with plan. All other questions have beenaddressed By: Maria D Meyer DO Diagnoses that have been ruled out: None Diagnoses that are still under consideration: None Final diagnoses: Obstructive sleep apnea SOB (shortness of breath) Anxiety Nonintractable headache, unspecified chronicity pattern, unspecifiedheadache type PATIENT DISCHARGED Obstructive sleep apnea SOB (shortness of breath) Anxiety Nonintractable headache, unspecified chronicity pattern, unspecifiedheadache type This note was prepared by Xavier Torres, acting as a Scribe for Maria D Bonilla DO. I electronically signed this note at 7:40 AM on 03/17/2018. I, Maria D Meyer DO, personally performed the services described in thisdocumentation, reviewed and edited the documentation which was dictated tothe scribe in my presence, and it accurately records my words and actions. Maria D Meyer DO 03/17/18 5447 us Erick Davis MD ECG ORDERABLES Final Resu lt [facility] documented in this encounter Visit Diagnoses Diagnosis Obstructive sleep apnea- Primary Obstructive sleep apnea (adult) (pediatric) SOB (shortness of breath) Shortness of breath Anxiety Anxiety state, unspecified Nonintractable headache, unspecified chronicity pattern, unspecified headache type documented in this encounter Administered Medications Inactive Administered Medications - up to 3 most recent administrations Medication Order MAR Action Action Date Dose Rate Site acetaminophen (TYLENOL) tablet 1,000 mg 1,000 mg, oral, Once, On 03/17/18 at 1434, For 1 dose Given 03/17/2018 2:38 PM BUYER ASSISTANT 1,000 mg diazePAM (VALIUM) tablet 5 mg 5 mg, oral, Once, On 03/17/18 at 0903, For 1 dose Given 03/17/2018 9:13 AM BUYER ASSISTANT 5 mg HYDROmorphone (DILAUDID) injection 0.5 mg 0.5 mg, intravenous, Administer over 2 Minutes, Once, On 03/17/18 at 0903, For 1 dose Given 03/17/2018 9:14 AM BUYER ASSISTANT 0.5 mg ondansetron (ZOFRAN) injection 4 mg 4 mg, intravenous, Administer over 2 Minutes, Once, On 03/17/18 at 0903, For 1 dose Given 03/17/2018 9:14 AM BUYER ASSISTANT 4 mg documented in this encounter Active and Recently Administered Medications Times are shown in BUYER ASSISTANT. Scheduled Medication Order 03/15/2018 03/16/2018 03/17/2018 acetaminophen (TYLENOL) tablet 1,000 mg (COMPLETED) 1,000 mg, oral, Once, On 03/17/18 at 1434, For 1 dose 1438 (Given - Provid er: Lachelle Biswas RN) diazePAM (VALIUM) tablet 5 mg (COMPLETED) 5 mg, oral, Once, On 03/17/18 at 0903, For 1 dose 09 (Given - Provid er: Lachelle Biswas RN) HYDROmorphone (DILAUDID) injection 0.5 mg (COMPLETED) 0.5 mg, intravenous, Administer over 2 Minutes, Once, On 03/17/18 at 0903, For 1 dose 0914 (Given - Provid er: Lachelle Biswas RN) ondansetron (ZOFRAN) injection 4 mg (COMPLETED) 4 mg, intravenous, Administer over 2 Minutes, Once, On 03/17/18 at 0903, For 1 dose 0914 (Given - Provid er: Lachelle Biswas RN) documented in this encounter Orders Medications Ordered That Tyler ht Not Have Been Administered Count Last Ordered Date First Ordered Date LORazepam (ATIVAN) injection 1 mg 1 018 documented in this encounter Care Teams Abrasive Coating Machine Operator Relationship Specialty Start Date End Date Justen Gale MD [address] [facility] [address] [place] [address] PCP - General 10/09/17 Liu Jerez MD Consulting Physician Gastroenterology 07/28/17 [place] [address] [facility] [address] [place] [address] Consulting Physician Pulmonary Disease 08/03/17 Khris Arthur MD [address] [facility] [address] [place] [address] Medical Oncologist/Poleyard Supervisor Medical Oncology 10/23/17 [place] [address] [address] Surgeon Orthopedic Surgery 10/23/17 [place] [address] [facility] [address] [place] [address] Consulting Physician Pain Management 10/23/17 [place] [address] [facility] [address] [place] [address] Referring Physician General Surgery 01/26/18 [place] [address] [facility] [address] [place] [address] Consulting Physician Neurology 01/26/18 documented as of this encounter
--- OUTSIDE RECORDS SUMMARY | 2024-04-26 04:25 | XMS_ITS | Encounter Summary ---
Author Organization [facility] Address [address] [place] [address] Phone Care Team Providers Care Hand Rounder Name Role Phone Liu Jerez MD Unavailable Albert Corbin MD Unavailable Justen Gale MD Primary Care Provider Khris Arthur MD Unavailable [phone] oK Melendez MD Unavailable John Paul Moyer MD Unavailable Annel Rod MD Unavailable Anali MARSHALL MD, Carlos M. Unavailable Encounter Details Date Type Department Care Team (Late st Contact Info) Description 04/27/[address] 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 After a meal Reorder 03/26/2018 04/27/2018 documented as of this encounter Care Teams Hand Rounder Relationship Specialty Start Date End Date Justen Gale MD [address] [address] PCP - General 10/09/17 Liu Jerez MD Consulting Physician Gastroenterology 07/28/17 [place] [address] [facility] [address] [place] [address] Consulting Physician Pulmonary Disease 08/03/17 [place] [address] [place] [address] [address] [place] [address] Medical Oncologist/Machine Pecan Picker Medical Oncology 10/23/17 [place] [address] [address] Surgeon Orthopedic Surgery 10/23/17 [place] [address] [address] Consulting Physician Pain Management 10/23/17 [place] [address] [facility] [address] [place] [address] Referring Physician General Surgery 01/26/18 [place] [address] [address] Consulting Physician Neurology 01/26/18 documented as of this encounter
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
--- OUTSIDE RECORDS SUMMARY | 2024-04-26 04:25 | XMS_ITS | Encounter Summary ---
Author Organization [facility] Facility Care Team Providers Care Scrap Stripper Hand Name Role Phone Liu Jerez MD Unavailable Albert Corbin MD Unavailable [phone] Justen Gale MD Primary Care Provider [phone] Khris Arthur MD Unavailable [phone] Ko Melendez MD Unavailable [phone] John Paul Moyer MD Unavailable [phone] Annel Rod MD Unavailable Anali MARSHALL MD, Carlos M. Unavailable [phone] Encounter Details Date Type Department Care Team (Latest Contact Info) Description 06/27/2018 Travel Social History Tobacco Use Types Packs/Day Years Used Date Smoking Tobacco: Former Smokeless Tobacco: Never Comments:remote tobacco use Alcohol Use Standard Drinks/Week Comments No 0 (1 standard drink = 0.6 oz pur e alcohol) Comments No Sex and Gender Information Value Date Recorded Sex Assigned at Not on file Legal Sex Female 12:24 AM S[employer] Gender Identity Not on file Sexual Orientation Not on file documented as of this encounter Plan of Treatment Not on file documented as of this encounter Visit Diagnoses Not on filedocumented in this encounter Care Teams Scrap Stripper Hand Relationship Specialty Start Date End Date Justen Gale MD 2 [facility] [address] [place] [address] PCP - General 10/09/17 Liu Jerez MD Consulting Physician Gastroenterology 07/28/17 [place] [address] [facility] [address] [place] [address] Consulting Physician Pulmonary Disease 08/03/17 Khris Arthur MD [address] [facility] [address] [place] [address] Medical Oncologist/Gage Maker Medical Oncology 10/23/17 [place] [address] [facility] [address] [place] [address] Surgeon Orthopedic Surgery 10/23/17 [place] [address] [facility] [address] [place] [address] Consulting Physician Pain Management 10/23/17 [place] [address] [facility] [address] [place] [address] Referring Physician General Surgery 01/26/18 [place] [address] [facility] [address] [place] [address] Consulting Physician Neurology 01/26/18 documented as of this encounter
--- OUTSIDE RECORDS SUMMARY | 2024-04-26 04:25 | XMS_ITS | Encounter Summary ---
Author Organization [facility] Address [address] [place] [address] Phone Care Team Providers [employer] Name Role Phone Liu Jerez MD Unavailable [phone] Albert Corbin MD Unavailable [phone] Justen Gale MD Primary Care Provider Khris Arthur MD Unavailable [phone] Ko Melendez MD Unavailable John Paul Moyer MD Unavailable [phone] Annel Rod MD Unavailable Anali MARSHALL MD, Carlos M. Unavailable Reason for Referral * Diagnostic Imaging (Routine) - Closed Specialty Diagnoses / Procedures Referred By Contac t Referred To Contact Diagnoses Thyroid nodule Procedures US Guided Thyroid Fine Needle Aspiration 1st Lesion Rj Phillips MD Phone: tel: fax: [facility] [address] [facility] [place] [address] Referral ID Status Reason Start Date Expiration Date Visits Re quested Visits Authorized [id number] Closed 08/21/2018 03/01/2020 1 1 Reason for Visit * Consultation (Routine) - Closed Specialty Diagnoses / Procedures Referred By Contac t Referred To Contact Endocrinology Diagnoses Thyroid nodule Justen Gale MD Phone: tel: fax: [facility] (All Locations) Referral ID Status Reason Start Date Expiration Date V isits Requested Visits Authorized [id number] Closed Specialty Services Required 06/27/2018 01/06/2020 12 12 Encounter Details Date Type Department Care Team (Latest Contact Info) Description 08/21/2018 11:00 AM CDT Office Visit [facility] Endocrinology Metabolism and Lipid [address] [facility] 5[address] [place] [address] [place] [id number] Thyroid nodule (Primary Dx) Social History Tobacco Use Types Packs/Day Years Used Date Smoking Tobacco: Former Smokeless Tobacco: Never Comments:remote tobacco use Alcohol Use Standard Drinks/Week Comments No 0 (1 standard drink = 0.6 oz pur e alcohol) Comments No Sex and Gender Information Value Date Recorded Sex Assigned at Not on file Legal Sex Female 12:24 AM PROVIDER CONTRACTING CONSULTANT Gender Identity Not on file Sexual Orientation Not on file documented as of this encounter Last Filed Vital Signs Vital Sign Reading Time Taken Comments Blood Pressure 114/77 08/21/2018 10:59 AM CDT Pulse 82 08/21/2018 10:59 AM CDT Temperature 36.5 ??C (97.7 ??F) 08/21/2018 1 0:59 AM CDT Respiratory Rate - - Oxygen Saturation - - Inhaled Oxygen Concentration - - Weight 132.7 kg (292 lb 9.6 oz) 019 10:59 AM CDT Height - - Body Mass Index 57.14 03/17/2018 3:09 AM PROVIDER CONTRACTING CONSULTANT documented in this encounter Patient Instructions * Patient Instructions* Rj Phillips MD - 08/21/2018 11:00 AM CDT Fine Needle Aspiration Biopsy CALL PERSON: What you need to know about a fine needle aspiration biopsy (FNAB): A FNAB is a procedure to removea sample of tissue. The tissue may be taken from anywhere in your body. Examples include an organ such as your liver or lung, a muscle, or skin. The tissue can be sent to the lab and tested for cancer or infection. If you have had an organ transplant, tissue from the organ can be tested for organ rejection. How to prepare for a FNAB: ?? Your healthcare provider will talk to you about how to prepare for your procedure. You may need to stop taking blood thinner medicine or aspirin 3 days before your procedure. The provider may tellyou not to eat or drink anything 8 hours before your procedure. The provider will tell you what medicines to take or not take on the day of your procedure. ?? You may be given contrast liquid during your procedure to help the tissue show up better in the pictures. Tell the healthcare provider if you have ever had an allergic reaction to contrast liquid.An MRI may also be used during your procedure. Do not enter the procedure room with anything metal.Metal can cause serious injury. Tell the healthcare provider if you have any metal in or on your body. Also tell him if you are or think you are . Special camargo can be used during the procedure to keep your baby safe. ?? Do not put on lotions or powders on the day of your procedure. Do not put on deodorant if your biopsy will be taken near your armpit. These products may cause particles to appear on your x-ray. Wear loose-fitting clothing to your procedure. Arrange for someone to drive you home and stay with youafter your procedure. What will happen during a FNAB: ?? You may be given IV sedation to help you relax during your procedure. You may also be given local anesthesia to numb the area. With local anesthesia, you may still feel pressure or pushing during your procedure, but you should not feel any pain. ?? Your healthcare provider may make a small incision. He or she will insert a needle through your skin and into the tissue. The provider may use x-ray, ultrasound, or MRI pictures to help guide the needle to the correct place. When the needle reaches the tissue, samples will be taken. ?? The provider will remove the needle and apply pressure to the area. You will not need stitches. A small bandage will be placed over your incision. Your healthcare provider may also wrap a tight-fitting bandage across the area. This may prevent bleeding, swelling, and pain. What will happen after a FNAB: Healthcare providers will monitor you until you are awake. You may be sore or have bruising or swelling for a few days. Do not breastfeed for 24 to 48 hours if you received contrast liquid. The contrast liquid may harm your baby. You may go home after your procedure or you may need to spend a night in the hospital. Risks of a FNAB: You may bleed more than expected or get an infection. A pocket of blood or fluid may form under your skin. You may need surgery to drain or remove it. The biopsy needle may damage other organs or tissues. Seek care immediately if: ?? Blood soaks through your bandage. ?? Your bruise suddenly gets larger and feels hard. ?? You have severe pain where the biopsy was taken. Contact your healthcare provider if: ?? You have a fever or chills. ?? Your biopsy site is red, swollen, or draining pus. ?? You have nausea or are vomiting. ?? Your skin is itchy, swollen, or you have a rash. ?? Your pain does not get better after you take pain medicine. ?? You have questions or concerns about your condition or care. Medicines: You may need any of the following: ?? Acetaminophen decreases pain and fever. It is available without a doctor's order. Ask how much to take and how often to take it. Follow directions. Read the labels of all other medicines you are using to see if they also contain acetaminophen, or ask your doctor or pharmacist. Acetaminophen can cause liver damage if not taken correctly. Do not use more than 4 grams (4,000 milligrams) total of acetaminophen in one day. . Care for your biopsy site as directed: If you have a tight-fitting bandage, you can remove it in 24to 48 hours, or as directed. Ask your healthcare provider when your biopsy site can get wet. Carefully wash around the site with soap and water. It is okay to let soap and water gently run over your biopsy site. Do not scrub the site. Dry the area and put on new, clean bandages as directed. Change your bandages when they get wet or dirty. Check your biopsy site every day for signs of infection such as redness, swelling, or pus. Do not put powders or lotions on your biopsy site. Self-care: ?? Apply ice on your biopsy site for 15 to 20 minutes every hour or as directed. Use an ice pack, or put crushed ice in a plastic bag. Cover it with a towel before you apply it to your skin. Ice helps prevent tissue damage and decreases swelling and pain. ?? Rest as directed. Do not lift anything heavier than 5 pounds, play sports, or exercise. These activities may cause bleeding. Short walks around the house are okay. Ask your healthcare provider when you can return to your normal activities. ?? Drink plenty of liquids as directed. Liquids help flush contrast liquid from your body. Ask how much liquid to drink each day and which liquids are best for you. Follow up with your healthcare provider as directed: Write down your questions so you remember to ask them during your visits. ?? 2016 [employer]. Information is for End User's use only and may not be sold, redistributed or otherwise used for commercial purposes. All illustrations and images included in CareNotes?? are the copyrighted property of [employer]. or [employer]. The above information is an hiv/aids care nurse only. It is not intended as medical advice for individual conditions or treatments. Talk to your doctor, nurse or pharmacist before following any medical regimen to see if it is safe and effective for you. documented in this encounter Procedure Notes * Aminah Raphael MD - 08/21/2018 11:00 AM CDTProcedure(s): BIOPSY THYROID Pre-Procedure Diagnose(s): Multiple thyroid nodules Post-Procedure Diagnose(s): Multiple thyroid nodules .Thyroid Biopsy Procedure Note Indications: Left inferior and Right inferior Thryoid Nodules Anesthesia: 5 cc 1% plain lidocaine Procedure Details The procedure for US-guided fine needle aspiration (FNA) of thyroid nodule was explained to the patient and options including preceding to biopsy or serial US monitoring were reviewed. Risks of procedure were explained and reviewed including, but not limited to, hemorrhage, infection, injury to adjacent organs, and adverse reactions to materials used. Benefits and risks were discussed. All questions were answered and the patient voiced understanding and wished to proceed. The patient signed theconsent form. Time out was announced with patient name, and site of FNA The patient was placed in the supine position with the neck extended. The neck was disinfected withethanol wipes and chlorhexidine swabs. The procedure used sterile gloves to complete the rest of the procedure. The US probe was placed in a sterile plastic wrap; and the thyroid was visualized usinga sterile acoustic gel. Biopsy site: bilateral. Fine Needle Aspiration was performed with 25 gauge needles Appropriate needle localization was confirmed with continuous sonographic guidance. 6 passes were performed in the right nodule 6 passes were performed in the left nodule The aspirates were handed to the cytopathology technician automatic for processing. Instructions were given to the patient for OTC analgesic use as needed. Patient was instructed to call if swelling, significant pain, or fever resulted from the procedure. May place ice pack over affected area during the first 24 hours. Findings: 1. Successful US-guided biopsy of left and right thyroid nodules. 2. Please see final cytopathology report for FNA interpretation. Condition: Stable Complications: none. Aminah Raphael MD Cosigned by Rj Phillips MD at 08/21/2018 2:08 PM CDT Associated attestation - Rj Phillips MD - 08/21/2018 2:08 PM CDT I have seen and examined the patient. I agree with the findings and plan of care as documented in the resident's note.. documented in this encounter Plan of Treatment Not on file documented as of this encounter Procedures Procedure Name Priority Date/Time Associated Diagnosis Comments US GUIDED THYROID FINE NEEDLE ASPIRATION 1ST LESION Schedule Routine, Read Routine (OP Routine) 08/21/2018 Thyroid nodule documented in this encounter Results * US Guided Thyroid Fine Needle Aspiration 1st Lesion (08/21/2018) Anatomical Region Laterality Modality Thyroid N/A Ultrasound us Rj Phillips MD IMG US PROCEDURES Final Result documented in this encounter Visit Diagnoses Diagnosis Thyroid nodule- Primary Nontoxic uninodular goiter documented in this encounter Care Teams [employer] Relationship Specialty Start Date End Date Justen Gale MD [address] [facility] [address] [place] [address] PCP - General 10/09/17 Liu Jerez MD Consulting Physician Gastroenterology 07/28/17 [place] [address] [facility] [address] [place] [address] Consulting Physician Pulmonary Disease 08/03/17 Khris Arthur MD [address] [facility] [address] [place] [address] Medical Oncologist/Global Supply Chain Vice President Medical Oncology 10/23/[address] [place] [address] [facility] [address] [place] [address] Surgeon Orthopedic Surgery 10/23/17 [place] [address] [facility] [address] [place] [address] Consulting Physician Pain Management 10/23/17 [place] [address] [facility] [address] [place] [address] Referring Physician General Surgery 01/26/18 [place] [address] [facility] [address] [place] [address] Consulting Physician Neurology 01/26/18 documented as of this encounter
--- OUTSIDE RECORDS SUMMARY | 2024-04-26 04:26 | XMS_ITS | Encounter Summary ---
Author Organization [facility] Address [address] [place] [address] Phone Care Team Providers Care Trade Promotion Analyst Name Role Phone Liu Jerez MD Unavailable Albert Corbin MD Unavailable Justen Gale MD Primary Care Provider + [phone] Khris Arthur MD Unavailable + [phone] Ko Melendez MD Unavailable [phone] John Paul Moyer MD Unavailable Reason for Visit * Oncology (Routine) - Closed Specialty Diagnoses / Procedures Referred By Contac t Referred To Contact Medical Oncology / Oncology Diagnoses lab, sury Procedures RETURN Referral, Self Khris Arthur MD [address] [facility] [address] [place] [address] Phone: tel: fax: Referral ID Status Reason Start Date Expiration Date V isits Requested Visits Authorized [id number] Closed Specialty Services Required 12/14/2017 06/12/2018 12 12 Encounter Details Date Type Department Care Team (Late st Contact Info) Description 01/16/2018 3:00 PM CDT Office Visit 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 Gender Identity Not on file Sexual Orientation Not on file documented as of this encounter Last Filed Vital Signs Vital Sign Reading Time Taken Comments Blood Pressure 123/80 01/16/2018 3:12 PM CDT Pulse 91 01/16/2018 3:12 PM CDT Temperature 36.4 ??C (97.5 ??F) 01/16/2018 3:12 PM CD T Respiratory Rate 16 01/16/2018 3:12 PM CDT Oxygen Saturation 97% 01/16/2018 3:12 PM CDT Inhaled Oxygen Concentration - - Weight 126.4 kg (278 lb 9.6 oz) 01/16/2018 3:12 PM CDT Height - - Body Mass Index 52.64 01/14/2018 9:20 PM CDT documented in this encounter Progress Notes * Darcy Goel, CURTIS - 01/16/2018 3:00 PM CDT Oncology Progress Note REASON FOR [...] in the left carcinoma were ER 8, TN 8, HER-2 negative. 3. Cytology on 07/21/2014 [...] continues on exemestane for her breast cancer. Since her last appointment, she has been to the ED multiple times with various scans primarily for back pain, abdominal pain and uncontrolled blood sugars. She was found to have multiple bulging discs and stenosis of the lumbar spine on CT scan done in September. She continues to have significant back pain, as well as neck and hip pain which she feels is a result of the back pain. .She was referred to local pain management by her PCP who she is seeing on Monday. She is scheduled to see anew research and development manager on Monday for her diabetes. She is now on insulin. She denies any changes in her breasts or chest wall or any new areas of focal pain. Review of Systems: A complete ROS was performed and positive for that noted in the above interval history. All other systems negative. Allergies Allergen Reactions ??? Ceftriaxone Anaphylaxis R ??? Cephalosporins Anaphylaxis ??? Latex Rash ??? Piperacillin-Tazobactam Rash ??? Ketorolac Itching ??? Metoclopramide Other (See comments) Other reaction(s): Hyperactive Restless leg syndrome ??? Oxycodone Vomiting ??? Trazodone Other (See comments) Shaky, restlessness, itching, throat swelling Outpatient Encounter Prescriptions as of 01/16/2018: ??? blood glucose diagnostic (ADVANCED GLUC METER TEST STRIP) strip, Use as directed, Disp: , Rfl: ??? blood-glucose meter [facility] [place], Diagnosis: Diabetes Type 2 Blood testing frequency: 4 times a day, Disp: , Rfl: ??? exemestane (AROMASIN) 25 mg tablet, TAKE 1 TABLET BY MOUTH DAILY AFTER A MEAL, Disp: 30 tablet,Rfl: 0 ??? insulin glargine (LANTUS) 100 unit/mL injection, Inject 34 Units under the skin 2 (two) times aday., Disp: , Rfl: ??? insulin lispro (HumaLOG) 100 unit/mL injection, Inject 15 Units under the skin 3 (three) times a day with meals., Disp: 10 mL, Rfl: 0 ??? lisinopril (PRINIVIL,ZESTRIL) 20 mg tablet, Take 20 mg by mouth., Disp: , Rfl: ??? ONETOUCH DELICA LANCETS 33 gauge [facility] [place], TEST UTD, Disp: , Rfl: 0 ??? ONETOUCH ULTRA2 kit, U UTD, Disp: , Rfl: 0 ??? oxybutynin (DITROPAN) 5 mg tablet, take 1 tablet by oral route every day, Disp: 0, Rfl: 0 ??? pen needle, diabetic 31 gauge x 5/16 needle, As Instructed, Disp: , Rfl: ??? rivaroxaban (XARELTO) 20 mg tablet, Take 20 mg by mouth., Disp: , Rfl: ??? rOPINIRole (REQUIP) 5 mg tablet, Take 5 mg by mouth., Disp: , Rfl: ??? albuterol HFA (PROVENTIL HFA) 90 mcg/actuation inhaler, Inhale 2 puffs., Disp: , Rfl: ??? ciprofloxacin (CIPRO) 500 mg tablet, TK 1 T PO BID FOR 5 DAYS, Disp: , Rfl: 0 ??? diazePAM (VALIUM) 5 mg tablet, Take 5 mg by mouth., Disp: , Rfl: ??? docusate sodium (COLACE) 100 mg capsule, Take 1 capsule (100 mg total) by mouth 2 (two) times aday. (Patient not taking: Reported on 01/16/2018 ), Disp: 15 capsule, Rfl: 0 ??? furosemide (LASIX) 40 mg tablet, Take 40 mg by mouth., Disp: , Rfl: ??? gabapentin (NEURONTIN) 300 mg capsule, TAKE 2 CAPSULE 3 TIMES DAILY, Disp: , Rfl: ??? glimepiride (AMARYL) 1 mg tablet, TK 1 T PO QAM, Disp: , Rfl: 3 ??? guaiFENesin-codeine (GUAITUSS AC) liquid 100-10 mg/5 mL, Take 5 mL by mouth., Disp: , Rfl: ??? HYDROcodone-acetaminophen (NORCO) 5-325 mg per tablet, Take by mouth., Disp: , Rfl: ??? LYRICA 75 mg capsule, , Disp: , Rfl: 0 ??? ondansetron ODT (ZOFRAN-ODT) 4 mg disintegrating tablet, Take 4 mg by mouth., Disp: , Rfl: ??? orphenadrine ER (NORFLEX) 100 mg 12 hr tablet, Take 1 tablet (100 mg total) by mouth 2 (two) times a day. (Patient not taking: Reported on 01/16/2018 ), Disp: 20 tablet, Rfl: 0 ??? polyethylene glycol (MIRALAX) 17 gram/dose powder, Mix 1 scoop (17 g) in 8 oz of water and drink daily. (Patient not taking: Reported on 01/16/2018 ), Disp: 527 g, Rfl: 0 ??? polyethylene glycol (MIRALAX) 17 gram/dose powder, Mix 1 scoop (17 g) in 8 oz of water and drink daily., Disp: , Rfl: ??? sitaGLIPtin-metformin (JANUMET) 50-1,000 mg per tablet, 2 times daily., Disp: , Rfl: Past Medical History: Diagnosis [...] 10/24/2014 Objective Vitals: Most Recent : BP: 123/80 Temp: 36.4 ??C (97.5 ??F) Temp src: Oral Pulse: 91 Resp: 16 SpO2: 97 % Height: 154.9 cm (5' 1 ) Weight: 126.4 kg (278 lb 9.6 oz) Physical Exam: Performance Status: ECOG 1 [...] pulses 2+. Breasts: Shows surgically absent breasts. There is some tenderness along the mastectomy incision line, but this is overall stable. Lab/Radiology/Diagnostic Review: CBC: Hematology Lab History Some values may be hidden. Unless noted otherwise, only the newest values recorded on each date aredisplayed. Labs - Hematology Latest Ref Range 11/27/17 12/16/17 01/15/18 01/16/18 WBC 3.8 - 9.8 K/cumm 12.3 (A) 11.9 (A) 10.2 (A) 13.0 (A) Hgb 12.1 - 15.1 g/dL 12.3 12.8 11.8 (A) 12.8 Hct 36.1 - 44.3 % 40.3 41.0 37.4 39.3 Plt 140 - 440 K/cumm 337 339 295 368 Neutrophils, abs 1.8 - 6.6 K/cumm 8.3 (A) 8.2 (A) 6.4 8.8 (A) (A) Abnormal value Comments are available for some flowsheets but are not being displayed. CMP: Lab Results Component Value Date/Time SODIUM 139 01/16/2018 03:10 PM POTASSIUM 4.2 01/16/2018 03:10 PM CO2 28 01/16/2018 03:10 PM BUNSER 14 01/16/2018 03:10 PM GLUCOSE 116 01/16/2018 03:10 PM CREATININE 0.72 01/16/2018 03:10 PM CALCIUM 10.6 (H) 01/16/2018 03:10 PM CHLORIDE 101 01/16/2018 03:10 PM ALBUMIN 4.0 01/16/2018 03:10 PM AST 22 01/16/2018 03:10 PM ALT 19 01/16/2018 03:10 PM ALKPHOS 92 01/16/2018 03:10 PM BILITOT 0.6 01/16/2018 03:10 PM PROT 8.5 01/16/2018 03:10 PM ANIONGAP 10 01/16/2018 03:10 PM Radiology: She has undergone many imaging studies since her last ROV including xrays, Head CT, Chest CT, lumbar spine CT, CT abdomen and pelvis. These all appear to be unremarkable with the exception of abnormalities noted to her lower back. Assessment/Plan Karly Marques is a 61-year-old female with stage II, ER positive, HER2 negative breast cancer on adjuvant exemestane. After discussion with Dr. Arthur, she will continue on exemestane for now. Idiscussed with her the patient's elevated calcium level as well. This was just checked yesterday atthe ED and found to be WNL. We will continue to monitor this with next laboratory check in 6 monthsat the time of her next ROV. She has had some depression in relation to various medical problems. Ihave strongly encouraged her to discuss this with her PCP and/or psychiatry for intervention. She denies suicidal ideation or thoughts of harm to herself or others. She is hoping that she will have some relief from her back pain after meeting with pain management next week. I have asked that she have them fax their notes/work up to our office for our records. She was encouraged to call prior to her next ROV with any questions or concerns. Darcy Goel NP Cosigned by Khris Arthur MD at 01/20/2018 7:31 PM CDT documented in this encounter Plan of Treatment Not on file documented as of this encounter Results * Comprehensive metabolic panel (08/28/2018 1:21 PM CDT) Sodium 139 135 - 145 mmol/L [facility] Potassium, pl 4.3 3.3 - 4.9 mmol/L [facility] Chloride 103 97 - 110 mmol/L [facility] CO2 28 22 - 32 mmol/L [facility] Anion gap 8 2 - 15 mmol/L [facility] BUN 17 8 - 25 mg/dL [facility] Creatinine 0.74 0.60 - 1.10 mg/dL [facility] Glucose 118 70 - 199 mg/dL [facility] Comment: Interpretive Data Fasting glucose [...] 2017. Calcium 10.0 8.5 - 10.3 mg/dL [facility] Bilirubin, total 0.4 0.1 - 1.2 mg/dL [facility] Protein, pl 8.4 6.5 - 8.5 g/dL [facility] Albumin 3.8 3.5 - 5.0 g/dL [facility] Alk phos 87 40 - 130 Units/L [facility] ALT 27 7 - 45 Units/L [facility] AST 30 10 - 45 Units/L [facility] Blood specimen (specimen) 08/28/2018 1:21 PM CDT 08/28/2018 1:35 PM CDT Narrative [facility] - 08/28/2018 2:10 PM CDT Darcy Goel NP LAB BLOOD ORDERABLES Final Result [facility] Department [place] [address] * (ABNORMAL) CBC with auto differential (08/28/2018 1:20 PM CDT) WBC 11.1(H) 3.8 - 9.8 K/cumm [facility] Comment:Testing performed by : [facility], [address] [place] [address] Hgb 12.4 12.1 - 15.1 g/dL [facility] Comment:Testing performed by : [place] [id number] Hct 38.8 36.1 - 44.3 % [facility] Comment:Testing performed by : [facility], [address] [place] [address] Plt 326 140 - 440 K/cumm [facility] Comment:Testing performed by : [place] [id number] MPV 7.2 6.8 - 10.4 fL [facility] Comment:Testing performed by : [place] [address] RBC 4.44 3.90 - 5.00 M/cumm [facility] Comment:Testing performed by : [place] [id number] MCV 87.5 80.0 - 97.6 fL [facility] Comment:Testing performed by : [place] [id number] MCH 27.9 26.7 - 33.7 pg [facility] Comment:Testing performed by : [place] [id number] MCHC 31.9(L) 32.7 - 35.5 g/dL [facility] Comment:Testing performed by : [place] [id number] RDW CV 14.5 11.8 - 14.6 % [facility] Comment:Testing performed by : [place] [id number] NRBC abs 0.01 0.00 - 0.01 K/cumm [facility] Comment:Testing performed by : [place] [id number] Blood specimen (specimen) 08/28/2018 1:20 PM CDT 08/28/2018 1:22 PM CDT Narrative [facility] - 08/28/2018 1:28 PM CDT Darcy Goel [employer] LAB BLOOD ORDERABLES Final Result [facility] Department [place] [address] documented in this encounter Visit Diagnoses Diagnosis Malignant neoplasm of overlapping sites of left female breast, unspecified estrogen receptor status (HCC)- Primary Malignant neoplasm of overlapping sites of left female breast, unspecified estrogen receptor status (HCC) documented in this encounter Historical Medications * This list may reflect changes made after this encounter. guaiFENesin-codei ne (GUAITUSS AC) liquid 100-10 mg/5 mL Take 5 mL by mouth. 08/13/2017 01/23/2018 HYDROcodone-aceta minophen (NORCO) 5-325 mg per tabletIndications :Pain Take by mouth. 01/01/2018 09/12/2021 ciprofloxacin (CIPRO) 500 mg tablet TK 1 T PO BID FOR 5 DAYS 0 10/18/2017 01/23/2018 added in this encounter Care Teams Trade Promotion Analyst Relationship Specialty Start Date End Date Justen Gale MD [address] [facility] [address] [place] [address] PCP - General 10/09/17 Liu Jerez MD Consulting Physician Gastroenterology 07/28/17 [place] [address] [facility] [address] [place] [address] Consulting Physician Pulmonary Disease 08/03/17 [place] [address] [place] [address] [address] [place] [address] Medical Oncologist/Master Certified Rv Technician Medical Oncology 10/23/17 [place] [address] [address] Surgeon Orthopedic Surgery 10/23/17 [place] [address] [address] [address] Consulting Physician Pain Management 10/23/17 documented as of this encounter
--- OUTSIDE RECORDS SUMMARY | 2024-04-26 04:26 | XMS_ITS | Encounter Summary ---
Author Organization [facility] Healthcare Address [address] [place] [address] Care Team Providers Care Correctional Classification Counselor Name Role Phone Liu Jerez MD Unavailable [phone] Maria D Corbin MD Unavailable Justen Gale MD Primary Care Provider Khris Arthur MD Unavailable [phone] Ko Melendez MD Unavailable John Paul Moyer MD Unavailable [phone] Reason for Visit * Reason Comments Chest Pain Shortness of Breath Encounter Details Date Type Department Care Team (Late st Contact Info) Description 12/15/2017 11:28 PM CDT - 12/16/2017 3:54 AM CDT Emergency [facility] Emergency Department [address] [place] [address] Maria D Meyer, [address] [place] [address] Chest pain, unspecified type (Primary Dx); Dyspnea, unspecified type Discharge Disposition: Discharge to home [...] on file 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 Gender Identity Not on file Sexual Orientation Not on file documented as of this encounter Last Filed Vital Signs Vital Sign Reading Time Taken Comments Blood Pressure 136/86 12/16/2017 3:20 AM CDT Pulse 94 12/16/2017 3:25 AM CDT Temperature 36.8 ??C (98.3 ??F) 12/15/2017 11:16 PM C DT Respiratory Rate 22 12/16/2017 3:25 AM CDT Oxygen Saturation 96% 12/16/2017 2:15 AM CDT Inhaled Oxygen Concentration - - Weight 125.2 kg (276 lb) 12/15/2017 11:16 PM CDT Height 154.9 cm (5' 1 ) 12/15/2017 11:16 PM CDT Body Mass Index 52.15 12/15/2017 11:16 PM CDT documented in this encounter Discharge Instructions * Attachments The following attachments cannot be sent through Care Everywhere. * Chest Pain (AfterCare(R) Instructions(ER/ED)) (Guamanian) documented in this encounter Medications at Time of Discharge rOPINIRole (REQUIP) 5 mg tablet Take 1 tablet (5 mg total) by mouth nightly Taken at 2100 albuterol HFA (PROVENTIL HFA) 90 mcg/actuation inhaler Inhale 2 puffs. 08/15/2017 8 baclofen (LIORESAL) 10 mg tablet TAKE 0.5-1 TAB EVERY 12 HOURS NEEDED FOR MUSCLE CRAMPING/SPASMS 05/31/2017 8 blood glucose diagnostic (ADVANCED GLUC METER TEST STRIP) strip Use as directed 11/09/2017 8 blood-glucose meter [facility] Diagnosis: Diabetes Type 2 Blood testing frequency: 4 times a day 11/21/2017 8 ciprofloxacin (CIPRO) 500 mg tablet TK 1 T PO BID FOR 5 DAYS 0 10/18/2017 8 cyclobenzaprine (FLEXERIL) 5 mg tablet TK 1 T PO TID FOR 14 DAYS 0 11/16/2017 8 diazePAM (VALIUM) 5 mg tablet Take 5 mg by mouth. 12/04/2017 8 exemestane (AROMASIN) 25 mg tablet TAKE 1 TABLET BY MOUTH DAILY AFTER A MEAL 30 tablet 12/19/2017 8 furosemide (LASIX) 40 mg tablet Take 40 mg by mouth. 11/09/2017 8 gabapentin (NEURONTIN) 300 mg capsule TAKE 2 CAPSULE 3 TIMES DAILY 05/31/2017 8 glimepiride (AMARYL) 1 mg tabletIndications:t ype 2 diabetes mellitus TK 1 T PO QAM 3 10/17/2017 8 guaiFENesin-codeine (GUAITUSS AC) liquid 100-10 mg/5 mL Take 5 mL by mouth. 08/13/2017 8 HYDROcodone-acetami nophen (NORCO) 5-325 mg per tablet Take 1 tablet by mouth every 8 (eight) hours as needed for pain. 20 tablet 10/31/2017 8 insulin glargine (LANTUS) 100 unit/mL injection Inject 50 Units under the skin daily. Takes in the morning 8 insulin lispro (HumaLOG) 100 unit/mL injection Inject 15 Units under the skin 3 (three) times a day with meals. 10 mL 11/14/2017 8 lisinopril (PRINIVIL,ZESTRIL) 20 mg tablet Take 20 mg by mouth. 05/11/2012 2 LYRICA 75 mg capsule 0 09/15/2017 8 ondansetron ODT (ZOFRAN-ODT) 4 mg disintegrating tablet Take 4 mg by mouth. 08/28/2017 8 ONETOUCH DELICA LANCETS 33 gauge misc TEST UTD 0 11/09/2017 8 ONETOUCH ULTRA2 kit U UTD 0 11/21/201701/23 8 oxybutynin (DITROPAN) 5 mg tablet take 1 tablet by oral route every day 0 0 12/12/2013 3 pen needle, diabetic 31 gauge x 5/16 needle As Instructed 12/01/2017 8 polyethylene glycol (MIRALAX) 17 gram/dose powder Mix 1 scoop (17 g) in 8 oz of water and drink daily. 527 g 08/15/2017 1 polyethylene glycol (MIRALAX) 17 gram/dose powder Mix 1 scoop (17 g) in 8 oz of water and drink daily. 08/15/2017 8 rivaroxaban (XARELTO) 20 mg tablet Take 20 mg by mouth. 08/08/2017 8 sitaGLIPtin-metform in (JANUMET) 50-1,000 mg per tablet 2 times daily. 8 traMADol (ULTRAM) 50 mg tablet Take 1 tablet (50 mg total) by mouth every 4 (four) hours as needed for pain. 20 tablet 11/28/2017 8 documented as of this encounter Discharge Disposition Disposition Code Departure Means Destination Discharge to home or self care documented in this encounter ED Notes * Maria D Meyer, - 12/16/2017 12:35 AM CDTAssociated Order(s): ECG 12-LEAD HPI Chief Complaint Patient presents with ??? Chest Pain ??? Shortness of Breath 0024: Karly Marques is a 62 year old female with a h/o CHF, hypertension, diabetes mellitus, PE, DVT, and breast cancer, who presents to the ED c/o moderate dyspnea which worsens when she lays downonset onset a few hours after waking up this morning. She additionally complains of intermittent mid-sternal chest pain described as sharp , shakiness, and weakness. She denies any palpitations or leg swelling. She is currently on Xarelto. No other symptoms were reported at this time. Patient History Patient Active Problem List Diagnosis Date Noted ??? Anxiety and depression 11/12/2017 ??? Uncontrolled type 2 diabetes mellitus with hyperglycemia, with long-term current use of insulin([facility]) 11/06/2017 ??? Allergy to drug [...] appetite change, chills, diaphoresis, fatigue and fever. HENT: Negative. Negative for congestion, drooling, sore throat and trouble swallowing. Eyes: Negative. Negative for pain and visual disturbance. Respiratory: Positive for shortness of breath. Negative for apnea, cough, choking, chest tightness,wheezing and stridor. Cardiovascular: Positive for chest pain. Negative for palpitations. Gastrointestinal: Negative. Negative for abdominal distention, abdominal pain, diarrhea, nausea andvomiting. Genitourinary: Negative. Negative for decreased urine volume, difficulty urinating, flank pain and urgency. Musculoskeletal: Negative for arthralgias, gait problem and myalgias. Skin: Negative for pallor. Neurological: Positive for tremors and weakness. Negative for dizziness, syncope, speech difficulty, light-headedness, numbness and headaches. Physical Exam ED Triage Vitals [12/15/17 2316] Temp Pulse Resp BP SpO2 36.8 ??C (98.3 ??F) 85 22 141/63 100 % Temp src Heart Rate Source [...] warm and dry. She is not diaphoretic. Nursing note and vitals reviewed. MDM MDM Labs Reviewed CBC WITH AUTO DIFFERENTIAL - Abnormal Result Value WBC 11.9 (*) Hgb 12.8 Hct 41.0 Plt 339 MPV 9.9 RBC 4.65 MCV 88.2 MCH 27.5 MCHC 31.2 (*) RDW CV 15.2 (*) RDW SD 48.8 (*) NRBC Abs 0.00 Narrative: COMPREHENSIVE METABOLIC PANEL - Abnormal Sodium 133 (*) Potassium, pl 4.4 Chloride 98 (*) CO2 27 Anion Gap 12 BUN 18 Creatinine 0.95 Glucose 225 (*) Calcium 9.8 Bilirubin, total 0.50 Protein, pl 7.6 Albumin 3.6 Alk phos 73 ALT 19 AST 18 Narrative: DIFFERENTIAL AUTO - Abnormal Neutrophil absolute 8.2 (*) Immature granulocyte absolute 0.1 Lymphocytes absolute 2.6 Monocyte absolute 0.8 Eosinophils absolute 0.2 Basophils, abs 0.0 Neutrophils 68.6 Immature granulocytes 0.5 Lymphocytes 21.9 Monocytes 6.5 Eosinophils 2.1 Basophils 0.4 Narrative: TROPONIN I Troponin I <0.03 Narrative: B-TYPE NATRIURETIC PEPTIDE B-Type Natriuretic Peptide (BNP) 15 Narrative: EGFR GFR 65 Narrative: TROPONIN I Troponin I <0.03 Narrative: XR Chest Pa Lateral 2 Views ED Interpretation nad Final Result Comparison is made to previous examination dated 11/01/2017. The lungs are clear. No pleural effusion or pneumothorax. The heart size and mediastinal contour are normal. Electronically signed by: Brando Restrepo M.D. BP 136/86 Pulse 94 Temp 36.8 ??C (98.3 ??F) (Oral) Resp 22 Ht 154.9 cm (5' 1 ) Wt 125.2 kg (276 lb) SpO2 96% BMI 52.15 kg/m?? ECG 12 lead Date/Time: 01/16/2018 6:40 AM Performed by: MARIA D MEYER Authorized by: ERICK DAVIS Rate: ECG rate: 87 ECG rate assessment: normal Rhythm: Rhythm: sinus rhythm Ectopy: Ectopy: none Conduction: Conduction: normal ST segments: ST segments: Normal T waves: T waves: non-specific Interpretation: Interpretation: non-specific ED Course as of Jan 16 642 Time: 12/16 36 Comment: The patient has been informed that they may have pre-hypertension or Hypertension based ngoc blood pressure reading in the Emergency Department. I recommend that the patient call the primarycare provider listed on their discharge instructions or a physician of their choice this week to arrange follow up for further evaluation of possible Hypertension. By: Adriel Penny Time: 12/17 347 Comment: Rechecked patient. Condition is improved. Discussed [...] are still under consideration: None Final diagnoses: Chest pain, unspecified type Dyspnea, unspecified type PATIENT DISCHARGED Chest pain, unspecified type Dyspnea, unspecified type This note is prepared by Adriel Penny, acting as a scribe for Dr. Maria D Meyer DO. I electronically signed this note at 12:36 AM on 12/16/2017. I, Dr. Maria D Meyer DO, have personally performed the services described in the documentation , reviewed the documentation, as recorded by the scribe in my presence, and it accurately and completely records my words and actions. Maria D Meyer DO 01/16/18641 * Margaret Barcenas RN - 12/15/2017 11:16 PM CDT Neither are active, intermittently for the past day. Midsternal pain, sharp. documented in this encounter Plan of Treatment Not on file documented as of this encounter Procedures Procedure Name Priority Date/Time Associated Diagnosis Comments TROPONIN I STAT 12/16/2017 2:45 AM CDT EGFR STAT 12/16/2017 12:25 AM CDT DIFFERENTIAL AUTO STAT 12/16/2017 12: 25 AM CDT CBC WITH AUTO DIFFERENTIAL STAT 12/16/2017 12:25 AM CDT TROPONIN I STAT 12/16/2017 12:25 AM CDT B-TYPE NATRIURETIC PEPTIDE STAT 12/16/2017 12:25 AM CDT COMPREHENSIVE METABOLIC PANEL STAT 12/16/2017 12:25 AM CDT XR CHEST PA LATERAL 2 VIEWS ED 12/15/2017 11:40 PM CDT ECG 12-LEAD STAT 12/15/2017 11:13 PM CDT documented in this encounter Results * Troponin I (12/16/2017 2:45 AM CDT) Troponin I <0.03 0.00 - 0.03 ng/mL MARY JANE ARNOLD Comment: Interpretive Data: Normal plasma Troponin I [...] for Troponin assay. References: 1. Clin Chem 2013;59:[id number] 2. Journal of the [place] [employer] 2012;60:1581-98 Current Interpretive Data Last Revised Date: 2017. Blood specimen (specimen) 12/16/2017 2:45 AM CDT 12/16/2017 3:02 AM CDT Narrative MARY JANE ARNOLD - 12/16/2017 3:30 AM CDT Maria D Meyer DO LAB BLOOD ORDERABLES Final Res ult MARY JANE [address] [address] [place] [address] * eGFR (12/16/2017 12:25 AM CDT) eGFR 65 mL/min/1.7 3 m2 MARY JANE Comment: Interpretive Data Reference Interval Normal ?>/= 90 mL/min/1.73m2 Mildly decreased* ? 60 - 89 mL/min/1.73m2 Mildly to moderately decreased ?45 - 59 mL/min/1.73m2 Moderately to severely decreased ??30 - 44 mL/min/1.73m2 Severely decreased ?15 - 29 mL/min/1.73m2 Kidney Failure ?< 15 ??mL/min/1.73m2 *Relative to young adult level If -Lebanese multiply value by 1.16. Estimated glomerular filtration [...] was last reviewed 2015. Blood specimen (specimen) 12/16/2017 12:25 AM CDT 12/16/2017 12:35 AM CDT Narrative MARY JANE - 12/16/2017 1:01 AM CDT Maria D Meyer DO LAB BLOOD ORDERABLES Final Res ult [facility] [address] [address] Department [place] [address] * (ABNORMAL) Differential, auto (12/16/2017 12:25 AM CDT) Neutrophil abs 8.2(H) 1.7 - 6.5 K/cumm [facility] Imm gran abs 0.1 0.0 - 0.1 K/cumm [facility] Lymphocyte abs 2.6 0.8 - 3.3 K/cumm [facility] Monocyte abs 0.8 0.2 - 0.8 K/cumm [facility] Eosinophil abs 0.2 0.0 - 0.5 K/cumm [facility] Basophil abs 0.0 0.0 - 0.1 K/cumm [facility] Neutrophil pct 68.6 % [facility] Comment: Interpretive Data Percent cell count reference ranges are not reported, since discordance with absolute values may lead to misinterpretation of CBC data. Current Interpretive Data was last revised on 2017. Imm gran pct 0.5 % [facility] Comment: Interpretive Data Percent cell count reference ranges are not reported, since discordance with absolute values may lead to misinterpretation of CBC data. Current Interpretive Data was last revised on 2017. Lymphocyte pct 21.9 % [facility] Comment: Interpretive Data Percent cell count reference ranges are not reported, since discordance with absolute values may lead to misinterpretation of CBC data. Current Interpretive Data was last revised on 2017. Monocyte pct 6.5 % [facility] Comment: Interpretive Data Percent cell count reference ranges are not reported, since discordance with absolute values may lead to misinterpretation of CBC data. Current Interpretive Data was last revised on 2017. Eosinophil pct 2.1 % [facility] Comment: Interpretive Data Percent cell count reference ranges are not reported, since discordance with absolute values may lead to misinterpretation of CBC data. Current Interpretive Data was last revised on 2017. Basophil pct 0.4 % MARY JANE Comment: Interpretive Data Percent cell count reference ranges are not reported, since discordance with absolute values may lead to misinterpretation of CBC data. Current Interpretive Data was last revised on 2017. Blood specimen (specimen) 12/16/2017 12:25 AM CDT 12/16/2017 12:35 AM CDT Narrative [facility] - 12/16/2017 12:49 AM CDT Maria D Meyer DO LAB BLOOD ORDERABLES Final Res ult Performing Organization Address [facility] Co de Phone Number MARY JANE [phone] [address] [facility] [place] [address] * B-type natriuretic peptide (12/16/2017 12:25 AM CDT) B-Type Natriuretic Peptide (BNP) 15 0 - 100 pg/mL MARY JANE Blood specimen (specimen) 12/16/2017 12:25 AM CDT 12/16/2017 12:55 AM CDT Narrative [facility] - 12/16/2017 1:20 AM CDT Maria D Meyer DO LAB BLOOD ORDERABLES Final Res ult Performing Organization Address [facility] Co de Phone Number MARY JANE [phone] [address] [facility] [place] [address] * Troponin I (12/16/2017 12:25 AM CDT) Troponin I <0.03 0.00 - 0.03 ng/mL MARY JANE Comment: Interpretive Data: Normal plasma Troponin I [...] for Troponin assay. References: 1. Clin Chem 2013;59:[id number] 2. Journal of the [place] [employer] 2012;60:1581-98 Current Interpretive Data Last Revised Date: 2017. Blood specimen (specimen) 12/16/2017 12:25 AM CDT 12/16/2017 12:35 AM CDT Narrative [facility] - 12/16/2017 1:09 AM CDT us Maria D Meyer DO LAB BLOOD ORDERABLES Final Res ult MARY JANE [address] [address] [place] [address] * (ABNORMAL) Comprehensive metabolic panel (12/16/2017 12:25 AM CDT) Sodium 133(L) 135 - 145 mmol/L [facility] Potassium, pl 4.4 3.5 - 5.1 mmol/L [facility] Chloride 98(L) 100 - 114 mmol/L [facility] CO2 27 22 - 32 mmol/L [facility] Anion gap 12 8 - 16 mmol/L [facility] BUN 18 8 - 24 mg/dL [facility] Creatinine 0.95 0.60 - 1.30 mg/dL [facility] Glucose 225(H) 70 - 199 mg/dL [facility] Comment: Interpretive Data Fasting glucose >/= 126 [...] interpretive data was last revised 2017. Calcium 9.8 8.4 - 10.5 mg/dL [facility] Bilirubin, total 0.50 0.10 - 1.30 mg/dL [facility] Protein, pl 7.6 6.0 - 8.3 g/dL [facility] Albumin 3.6 3.2 - 4.8 g/dL [facility] Alk phos 73 30 - 110 Units/L [facility] ALT 19 1 - 45 Units/L [facility] AST 18 7 - 40 Units/L [facility] Blood specimen (specimen) 12/16/2017 12:25 AM CDT 12/16/2017 12:35 AM CDT Narrative MARY JANE - 12/16/2017 1:01 AM CDT us Maria D Meyer DO LAB BLOOD ORDERABLES Final Res ult [facility] [address] [address] [place] [address] * (ABNORMAL) CBC with auto differential (12/16/2017 12:25 AM CDT) WBC 11.9(H) 3.8 - 9.9 K/cumm [facility] Hgb 12.8 11.9 - 15.5 g/dL [facility] Hct 41.0 35.6 - 45.5 % [facility] Plt 339 150 - 400 K/cumm [facility] MPV 9.9 9.1 - 12.3 fL [facility] RBC 4.65 3.90 - 5.20 M/cumm [facility] MCV 88.2 81.3 - 96.4 fL [facility] MCH 27.5 27.1 - 33.3 pg [facility] MCHC 31.2(L) 32.3 - 35.7 g/dL [facility] RDW CV 15.2(H) 11.1 - 14.9 % [facility] RDW SD 48.8(H) 35.7 - 48.1 fL [facility] NRBC abs 0.00 0.00 - 0.01 K/cumm [facility] Blood specimen (specimen) 12/16/2017 12:25 AM CDT 12/16/2017 12:35 AM CDT Narrative MARY JANE - 12/16/2017 12:49 AM CDT us Maria D Meyer DO LAB BLOOD ORDERABLES Final Res ult MARY JANE [address] [facility] [place] [address] * XR Chest Pa Lateral 2 Views (12/15/2017 11:40 PM CDT) Anatomical Region Laterality Modality Body, Chest N/A Computed Radiogr aphy 12/16/2017 10:2 9 AM CDT Impressions 12/16/2017 10:30 AM CDT Comparison is made to previous examination dated 11/01/2017. ??The lungs are clear. No pleural effusion or pneumothorax. The heart size and mediastinal contour are normal. Electronically signed by: Brando Restrepo M.D. Narrative 12/16/2017 10:30 AM CDT RESULT: EXAMINATION: XR CHEST PA LATERAL 2 VIEWS HISTORY: Shortness of breath. Procedure Note Robert Roberts MD - 12/16/2017 RESULT: EXAMINATION: XR CHEST PA LATERAL 2 VIEWS HISTORY: Shortness of breath. IMPRESSION: Comparison is made to previous examination dated 11/01/2017. The lungs are clear. No pleural effusion or pneumothorax. The heart size and mediastinal contour are normal. Electronically signed by: Brando Restrepo M.D. us Erick Davis MD IMG XR PROCEDURES Final Re sult * ECG 12-LEAD (12/15/2017 11:13 PM CDT) Patient age 62 years [facility] Interpretation Text SINUS RHYTHMNORMAL ECGPREVIOUS TRACIN11/27/2017 20.18No significant change compared to prior ECG [facility] Comment:Physician Interprete r Dr. Humberto Armas M.D. Ventricular Rate EKG/Min 87 /min [facility] P Wave Duration 111 ms [facility] QRS-Interval (MSEC) 88 ms [facility] OK-Interval (MSEC) 133 ms [facility] QT Interval 343 ms [facility] QTc 390 ms [facility] QTC Interval ms [facility] P [place] 34 deg [facility] QRS [place] 11 deg [facility] T [place] 51 deg [facility] 12/15/2017 11:1 3 PM CDT Narrative Procedure Note Maria D Meyer, DO - 12/16/2017 12:35 AM CDT HPI Chief Complaint Patient presents with ? ? Chest Pain ? ? Shortness of Breath 0024: Karly Marques is a 62 year old female with a h/o CHF,hypertension, diabetes mellitus, PE, DVT, and breast cancer, who presentsto the ED c/o moderate dyspnea which worsens when she lays down onsetonset a few hours after waking up this morning. She additionally complainsof intermittent mid-sternal chest pain described as sharp , shakiness,and weakness. She denies any palpitations or leg swelling. She iscurrently on Xarelto. No other symptoms were reported at this time. Patient History Patient Active Problem List Diagnosis Date Noted ? ? Anxiety and depression 11/12/2017 ? ? Uncontrolled type 2 diabetes mellitus with hyperglycemia, with long-termcurrent use of insulin ([facility]) 11/06/2017 ? ? Allergy to drug 11/06/2017 ? ? Dysuria 10/26/2017 ? ? Acute left-sided low back pain with left-sided sciatica 10/23/2017 ? ? Type 2 diabetes mellitus with neurologic complication, without long-termcurrent use of insulin ([facility]) 10/23/2017 ? ? Essential hypertension 10/23/2017 ? ? Long-term current use of opiate analgesic 10/23/2017 ? ? Lumbosacral spondylosis without myelopathy 10/23/2017 ? ? Radiculopathy, lumbosacral region 10/23/2017 ? ? Spinal stenosis of lumbar region without neurogenic [id number]/02/2018 ? ? 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 ? ? Type 2 diabetes mellitus with hyperglycemia, without long-term currentuse of insulin ([facility]) ? ? Constipation ? ? Malignant neoplasm [...] ovary removed ? ? OTHER SURGICAL HISTORY 2013 : Right Total Knee Replacement ? ? [...] Constitutional: Negative for activity change, appetite change, chills,diaphoresis, fatigue and fever. HENT: Negative. Negative for congestion, drooling, sore throat andtrouble swallowing. Eyes: Negative. Negative for pain and visual disturbance. Respiratory: Positive for shortness of breath. Negative for apnea, cough,choking, chest tightness, wheezing and stridor. Cardiovascular: Positive for chest pain. Negative for palpitations. Gastrointestinal: Negative. Negative for abdominal distention, abdominalpain, diarrhea, nausea and vomiting. Genitourinary: Negative. Negative for decreased urine volume, difficultyurinating, flank pain and urgency. Musculoskeletal: Negative for arthralgias, gait problem and myalgias. Skin: Negative for pallor. Neurological: Positive for tremors and weakness. Negative for dizziness,syncope, speech difficulty, light-headedness, numbness and headaches. Physical Exam ED Triage Vitals [12/15/17 2316] Temp Pulse Resp BP SpO2 36.8 ??C (98.3 ??F) 85 22 141/63 100 % Temp src Heart Rate Source Patient Position BP Location FiO2 (%) Oral -- -- -- -- Physical Exam Constitutional: She is oriented to person, place, and time. She appearswell- developed and well-nourished. No distress. HENT: Head: [...] warm and dry. She is not diaphoretic. Nursing note and vitals reviewed. MDM MDM Labs Reviewed CBC WITH AUTO DIFFERENTIAL - Abnormal Result Value WBC 11.9 (*) Hgb 12.8 Hct 41.0 Plt 339 MPV 9.9 RBC 4.65 MCV 88.2 MCH 27.5 MCHC 31.2 (*) RDW CV 15.2 (*) RDW SD 48.8 (*) NRBC Abs 0.00 Narrative: COMPREHENSIVE METABOLIC PANEL - Abnormal Sodium 133 (*) Potassium, pl 4.4 Chloride 98 (*) CO2 27 Anion Gap 12 BUN 18 Creatinine 0.95 Glucose 225 (*) Calcium 9.8 Bilirubin, total 0.50 Protein, pl 7.6 Albumin 3.6 Alk phos 73 ALT 19 AST 18 Narrative: DIFFERENTIAL AUTO - Abnormal Neutrophil absolute 8.2 (*) Immature granulocyte absolute 0.1 Lymphocytes absolute 2.6 Monocyte absolute 0.8 Eosinophils absolute 0.2 Basophils, abs 0.0 Neutrophils 68.6 Immature granulocytes 0.5 Lymphocytes 21.9 Monocytes 6.5 Eosinophils 2.1 Basophils 0.4 Narrative: TROPONIN I Troponin I <0.03 Narrative: B-TYPE NATRIURETIC PEPTIDE B-Type Natriuretic Peptide (BNP) 15 Narrative: EGFR GFR 65 Narrative: TROPONIN I Troponin I <0.03 Narrative: XR Chest Pa Lateral 2 Views ED Interpretation nad Final Result Comparison is made to previous examination dated 11/01/2017. The lungs are clear. No pleural effusion or pneumothorax. The heart size and mediastinal contour are normal. Electronically signed by: Brando Restrepo M.D. BP 136/86 Pulse 94 Temp 36.8 ??C (98.3 ??F) (Oral) Resp 22 Ht154.9 cm (5' 1 ) Wt 125.2 kg (276 lb) SpO2 96% BMI 52.15 kg/m?? ECG 12 lead Date/Time: 01/16/2018 6:40 AM Performed by: MARIA D MEYER Authorized by: ERICK DAVIS Rate: ECG rate: 87 ECG rate assessment: normal Rhythm: Rhythm: sinus rhythm Ectopy: Ectopy: none Conduction: Conduction: normal ST segments: ST segments: Normal T waves: T waves: non-specific Interpretation: Interpretation: non-specific ED Course as of Jan 16 642 Time: 12/16 36 Comment: The patient has been informed that they may have pre-hypertensionor Hypertension based on a blood pressure reading in the EmergencyDepartment. I recommend that the patient call the primary care providerlisted on their discharge instructions or a physician of their choice thisweek to arrange follow up for further evaluation of possible Hypertension. By: Adriel Penny Time: 12/16 970 Comment: Rechecked patient. Condition is improved. Discussed [...] are still under consideration: None Final diagnoses: Chest pain, unspecified type Dyspnea, unspecified type PATIENT DISCHARGED Chest pain, unspecified type Dyspnea, unspecified type This note is prepared by Adriel Penny, acting as a scribe for Dr.William Cruz Meyer DO. I electronically signed this note at 12:36 AM on 12/16/2017. I, Dr. Maria D Meyer DO, have personally performed the servicesdescribed in the documentation , reviewed the documentation, as recordedby the scribe in my presence, and it accurately and completely records mywords and actions. Maria D Meyer DO 01/16/18 0642 us Erick Davis MD ECG ORDERABLES Final Resu lt [facility] documented in this encounter Visit Diagnoses Diagnosis Chest pain, unspecified type- Primary Dyspnea, unspecified type documented in this encounter Administered Medications Inactive Administered Medications - up to 3 most recent administrations Medication Order MAR Action Action Date Dose Rate Site diazePAM (VALIUM) 5 mg tablet - ADS Override Pull Starting on 12/16/17 at 0248, For 1 dose, QUANG MENDOZA: cabinet override diazePAM (VALIUM) tablet 5 mg 5 mg, oral, Once, On 12/16/17 at 0251, For 1 dose Given 12/16/2017 2:51 AM CDT 5 mg diphenhydrAMINE (BENADRYL) 50 mg/mL injection - ADS Override Pull Starting on 12/16/17 at 0200, For 1 dose, QUANG MENDOZA: cabinet override diphenhydrAMINE (BENADRYL) injection 50 mg 50 mg, intravenous, Administer over 1 Minutes, Once, On 12/16/17 at 0202, For 1 dose Given 12/16/2017 2:02 AM CDT 50 mg LORazepam (ATIVAN) injection 1 mg 1 mg, intravenous, Once, On 12/16/17 at 0034, For 1 dose Given 12/16/2017 1:22 AM CDT 1 mg ondansetron (ZOFRAN) 4 mg/2 mL injection - ADS Override Pull Starting on 12/16/17 at 0150, For 1 dose, QUANG MENDOZA: cabinet override ondansetron (ZOFRAN) injection 4 mg 4 mg, intravenous, Once, On 12/16/17 at 0150, For 1 dose Given 12/16/2017 1:52 AM CDT 4 mg documented in this encounter Active and Recently Administered Medications Times are shown in CDT. Scheduled Medication Order 12/14/2017 12/15/2017 12/16/2017 diazePAM (VALIUM) tablet 5 mg (COMPLETED) 5 mg, oral, Once, On 12/16/17 at 0251, For 1 dose 0251 (Given - Provid er: Quang Mendoza RN) diphenhydrAMINE (BENADRYL) injection 50 mg (COMPLETED) 50 mg, intravenous, Administer over 1 Minutes, Once, On 12/16/17 at 0202, For 1 dose 0202 (Given - Provid er: Quang Mendoza RN) LORazepam (ATIVAN) injection 1 mg (COMPLETED) 1 mg, intravenous, Once, On 12/16/17 at 0034, For 1 dose 0122 (Given - Provid er: Quang Mendoza RN) ondansetron (ZOFRAN) injection 4 mg (COMPLETED) 4 mg, intravenous, Once, On 12/16/17 at 0150, For 1 dose 0152 (Given - Provid er: Quang Mendoza RN) documented in this encounter Care Teams Correctional Classification Counselor Relationship Specialty Start Date End Date Justen Gale MD [address] [address] PCP - General 10/09/17 Liu Jerez MD Consulting Physician Gastroenterology 07/28/17 [place] [address] [facility] [address] [place] [address] Consulting Physician Pulmonary Disease 08/03/17 Khris Arthur MD [address] [place] [address] [address] [place] [address] Medical Oncologist/Financial Wellness Coach Medical Oncology 10/23/17 [place] [address] [address] Surgeon Orthopedic Surgery 10/23/17 [place] [address] [address] [address] Consulting Physician Pain Management 10/23/17 documented as of this encounter
--- OUTSIDE RECORDS SUMMARY | 2024-04-26 04:26 | XMS_ITS | Encounter Summary ---
Author Organization [facility] Healthcare Address [address] [place] [address] Care Team Providers Care Household Manager Name Role Phone Liu Jerez MD Unavailable Albert Corbin MD Unavailable Justen Gale MD Primary Care Provider [phone] Khris Arthur MD Unavailable [phone] Ko Melendez MD Unavailable [phone] John Paul Moyer MD Unavailable Encounter Details Date Type Department Care Team (Late st Contact Info) Description 12/18/2017 Telephone [facility] [address] [place] [address] Yesenia Newton RN Social History Tobacco Use Types Packs/Day Years Used Date Smoking Tobacco: Former Smokeless Tobacco: Never Comments:remote tobacco use Alcohol Use Standard Drinks/Week Comments No 0 (1 standard drink = 0.6 oz pur e alcohol) Comments No Sex and Gender Information Value Date Recorded Sex Assigned at Not on file 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 [place] FAXED REQUEST TOMED/ONC. PT IS CURRENT PT OF DR ARTHUR. documented in this encounter Plan of Treatment Not on file documented as of this encounter Visit Diagnoses Not on filedocumented in this encounter Care Teams Household Manager Relationship Specialty Start Date End Date Justen Gale MD [address] [address] PCP - General 10/09/17 Liu Jerez MD Consulting Physician Gastroenterology 07/28/17 [place] [address] [address] [facility] [address] [place] [address] Consulting Physician Pulmonary Disease 08/03/17 [place] [address] [place] [address] [address] [place] [address] Medical Oncologist/Technology Education Instructor Medical Oncology 10/23/17 [place] [address] [address] [facility] [address] [place] [address] Surgeon Orthopedic Surgery 10/23/17 [place] [address] [address] [facility] [address] [place] [address] Consulting Physician Pain Management 10/23/17 documented as of this encounter
--- OUTSIDE RECORDS SUMMARY | 2024-04-26 04:26 | XMS_ITS | Encounter Summary ---
Author Organization [facility] Address [address] [place] [address] Phone Care Team Providers Care Bicycle Repairman Name Role Phone Liu Jerez MD Unavailable Albert Corbin MD Unavailable [phone] Justen Gale MD Primary Care Provider Khris Arthur MD Unavailable [phone] Ko Melendez MD Unavailable John Paul Moyer MD Unavailable Encounter Details Date Type Department Care Team (Late st Contact Info) Description 12/19/2017 Orders Only [facility] Oncology [address] 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 Gender Identity Not on file Sexual Orientation Not on file documented as of this encounter Plan of Treatment Not on file documented as of this encounter Visit Diagnoses Not on filedocumented in this encounter Care Teams Bicycle Repairman Relationship Specialty Start Date End Date Justen Gale MD 2 [facility] [address] [place] [address] PCP - General 10/09/17 Liu Jerez MD Consulting Physician Gastroenterology 07/28/17 [place] [address] [address] [facility] [address] [place] [address] Consulting Physician Pulmonary Disease 08/03/17 Khris Arthur MD [address] [facility] [address] [place] [address] Medical Oncologist/Rattlesnake Farmer Medical Oncology 10/23/17 [place] [address] [address] [facility] [address] [place] [address] Surgeon Orthopedic Surgery 10/23/17 [place] [address] [facility] [address] [place] [address] Consulting Physician Pain Management 10/23/17 documented as of this encounter
--- OUTSIDE RECORDS SUMMARY | 2024-04-26 04:26 | XMS_ITS | Encounter Summary ---
Author Organization [facility] Healthcare Address [address] [place] [address] Care Team Providers Care University Intern Name Role Phone Liu Jerez MD Unavailable [phone] Albert Corbin MD Unavailable [phone] Justen Gale MD Primary Care Provider Khris Arthur MD Unavailable [phone] Ko Melendez MD Unavailable John Paul Moyer MD Unavailable Reason for Visit * Reason Comments Hyperglycemia Encounter Details Date Type Department Care Team (Late st Contact Info) Description 01/14/2018 11:13 PM CDT - 01/15/2018 4:42 AM CDT Emergency [facility] Emergency Department [address] [place] [address] [place] [address] [facility] [address] [place] [address] Type 2 diabetes mellitus without complication, with long-term current use of insulin ([facility]) (Primary Dx) Discharge Disposition: Discharge to home [...] on file 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 Gender Identity Not on file Sexual Orientation Not on file documented as of this encounter Last Filed Vital Signs Vital Sign Reading Time Taken Comments Blood Pressure 106/70 01/15/2018 4:15 AM CDT Pulse 91 01/15/2018 4:20 AM CDT Temperature 36.4 ??C (97.6 ??F) 01/14/2018 9:20 PM CD T Respiratory Rate 18 01/15/2018 4:15 AM CDT Oxygen Saturation 98% 01/15/2018 4:15 AM CDT Inhaled Oxygen Concentration - - Weight 125.2 kg (276 lb) 01/14/2018 9:20 PM CDT Height 154.9 cm (5' 1 ) 01/14/2018 9:20 PM CDT Body Mass Index 52.15 01/14/2018 9:20 PM CDT documented in this encounter Discharge Instructions * Attachments The following attachments cannot be sent through Care Everywhere. * Diabetes, General Information (Australian) documented in this encounter Medications at Time of Discharge rOPINIRole (REQUIP) 5 mg tablet Take 1 tablet (5 mg total) by mouth nightly Taken at 2100 albuterol HFA (PROVENTIL HFA) 90 mcg/actuation inhaler Inhale 2 puffs. 08/15/2017 8 blood glucose diagnostic (ADVANCED GLUC METER TEST STRIP) strip Use as directed 11/09/2017 8 blood-glucose meter misc Diagnosis: Diabetes Type 2 Blood testing frequency: 4 times a day 11/21/2017 8 ciprofloxacin (CIPRO) 500 mg tablet TK 1 T PO BID FOR 5 DAYS 0 10/18/2017 8 diazePAM (VALIUM) 5 mg tablet Take 5 mg by mouth. 12/04/2017 8 docusate sodium (COLACE) 100 mg capsuleIndications: constipation Take 1 capsule (100 mg total) by mouth 2 (two) times a day. 15 capsule 01/01/2018 8 exemestane (AROMASIN) 25 mg tablet TAKE [...] 8 HYDROcodone-acetami nophen (NORCO) 5-325 mg per tabletIndications:P ain Take by mouth. 01/01/2018 2 insulin glargine [...] ULTRA2 kit U UTD 0 11/21/201701/23 8 orphenadrine ER (NORFLEX) 100 mg 12 hr tabletIndications:M uscle Spasm Take 1 tablet (100 mg total) by mouth 2 (two) times a day. 20 tablet 01/01/2018 8 oxybutynin (DITROPAN) 5 mg tablet take [...] mg per tablet 2 times daily. 8 documented as of this encounter Discharge Disposition Disposition Code Departure Means Destination Discharge to home or self care documented in this encounter ED Notes * Bud Dawkins RN - 01/15/2018 12:04 AM CDT Came to [facility] for elevated blood sugar, patient also complaining of nausea and pain to stomach, pain scale 6/10 pain is sharp Bud Dawkins RN 01/15/18 0005 * Taylor Benedict MD - 01/14/2018 11:33 PM CDTAssociated Order(s): ECG 12-LEAD HPI Chief Complaint Patient presents with ??? Hyperglycemia 2328: Karly Marques is a 62 year old female with a h/o diabetes mellitus, hypertension,CHF, DVT, PE, and breast cancer,who presents to the ED with hyperglycemia (500) which began earliertoday. The patient additionally complains of tremors, diaphoresis, nausea, vomiting, palpitations, abdominal pain, fatigue, blurry vision, and increased urinary frequency. She denies any chest pain, dyspnea, cough, or dysuria. No other symptoms were reported at this time. The patient states that she takes insulin 3 times a day with every meal. She denies missing her insulin today. Patient History Patient Active Problem List Diagnosis Date Noted ??? Anxiety and depression 11/12/2017 ??? Uncontrolled type 2 diabetes mellitus with hyperglycemia, with long-term current use of insulin([facility]) 11/06/2017 ??? Allergy to drug 11/06/2017 ??? Dysuria 10/26/2017 ??? Acute left-sided low back pain with left-sided sciatica 10/23/2017 ??? Type 2 diabetes mellitus with neurologic complication, without long-term current use of insulin([facility]) 10/23/2017 ??? Essential hypertension 10/23/2017 ??? Long-term current use of opiate analgesic 10/23/2017 ??? Lumbosacral spondylosis without myelopathy 10/23/2017 ??? Radiculopathy, lumbosacral region 10/23/2017 ??? Spinal stenosis of lumbar region without neurogenic claudication 10/23/2017 ??? 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 ??? Type 2 diabetes mellitus with hyperglycemia, without long-term current use of insulin ([facility]) ??? Constipation ??? 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 Cancer of overlapping sites of left female breast (CMS/HCC) 10/13/2017 ??? Chronic anticoagulation ??? Restless leg syndrome ??? Chest pressure 08/01/2017 ??? Positive blood culture 08/01/2017 ??? Hyponatremia 08/01/2017 ??? Diet-controlled diabetes mellitus ([facility]/HCC) 08/01/2017 ??? LUL (obstructive sleep apnea) 08/01/2017 [...] for chills and fever. HENT: Negative for rhinorrhea and sore throat. Eyes: Positive for visual disturbance. Respiratory: Negative for cough, chest tightness, shortness of breath and wheezing. Cardiovascular: Positive for palpitations. Negative for chest pain and leg swelling. Gastrointestinal: Positive for abdominal pain, nausea and vomiting. Negative for constipation and diarrhea. Endocrine: Negative for cold intolerance. Genitourinary: Positive for frequency. Negative for difficulty urinating, dysuria and urgency. Musculoskeletal: Negative for myalgias. Skin: Negative for rash. Allergic/Immunologic: Negative for food allergies. Neurological: Positive for tremors. Negative for dizziness, syncope, weakness, light-headedness, numbness and headaches. Psychiatric/Behavioral: Negative for hallucinations and suicidal ideas. All other systems reviewed and are negative. Physical Exam ED Triage Vitals [01/14/182119] Temp Pulse Resp BP SpO2 36.4 ??C (97.6 ??F) 99 18 150/81 100 % Temp src Heart Rate Source Patient Position BP Location FiO2 (%) Oral Monitor Sitting Right arm -- Physical Exam Constitutional: She is oriented to person, place, and time. She appears well- developed and well-nourished. No distress. HENT: Head: Normocephalic and atraumatic. Mouth/Throat: No oropharyngeal exudate. Eyes: Pupils are equal, round, and reactive to light. Conjunctivae and EOM are normal. Neck: Neck supple. No tracheal deviation present. Cardiovascular: Normal rate and regular rhythm. Exam reveals no gallop and no friction rub. No murmur heard. Pulmonary/Chest: Effort normal and breath sounds normal. No respiratory distress. She has no wheezes. She has no rales. Abdominal: Soft. Bowel sounds are normal. She exhibits no distension. There is no tenderness. Thereis no rebound and no guarding. Musculoskeletal: Normal range of motion. She exhibits no edema, tenderness or deformity. Lymphadenopathy: She has no cervical adenopathy. Neurological: She is alert and oriented to person, place, and time. She displays normal reflexes. No cranial nerve deficit or sensory deficit. She exhibits normal muscle tone. Coordination normal. Skin: Skin is dry. Psychiatric: She has a normal mood and affect. Her behavior is normal. Nursing note and vitals reviewed. [facility] Labs Reviewed URINALYSIS AND REFLEX TO MICROSCOPIC AND CULTURE - Abnormal Result Value Color, ur Yellow Clarity, ur Clear Specific gravity, ur 1.020 pH, urine 5.0 Protein, ur ql Negative Glucose, ur ql 3+ (*) Ketones, ur Negative Bilirubin, ur Negative Blood, ur 1+ (*) Urobilinogen, ur <2.0 Nitrite, ur Negative Leukocyte esterase, ur Negative Narrative: Urine pH is affected by diet, medications, systemic acid-base disturbances, and renal tubular function. pH may affect urinary stone formation. For example, urine pH below 6.0 may help reduce the tendency for calcium phosphate stones and pH greater than 6.0 may reduce the tendency for uric acid stone formation. Source: [facility] [employer].Last revised 05-04-2017 CBC WITH AUTO DIFFERENTIAL - Abnormal WBC 10.2 (*) Hgb 11.8 (*) Hct 37.4 Plt 295 MPV 10.0 RBC 4.28 MCV 87.4 MCH 27.6 MCHC 31.6 (*) RDW CV 14.6 RDW SD 46.6 NRBC Abs 0.00 Narrative: COMPREHENSIVE METABOLIC PANEL - Abnormal Sodium 135 Potassium, pl 4.2 Chloride 104 CO2 23 Anion Gap 12 BUN 14 Creatinine 0.60 Glucose 335 (*) Calcium 9.1 Bilirubin, total 0.40 Protein, pl 7.3 Albumin 3.0 (*) Alk phos 74 ALT 15 AST 15 Narrative: URINALYSIS, MICROSCOPIC ONLY - Abnormal WBC, ur 0-5 RBC, ur 0-5 Epithelial cells, squamous, ur 1-5 Mucous, ur Present (*) Narrative: POCT GLUCOSE DEVICE - Abnormal Glucose, POC, bld 393 (*) Glucose comment 1 RN/MD Notified Narrative: TROPONIN I Troponin I <0.03 Narrative: B-TYPE NATRIURETIC PEPTIDE B-Type Natriuretic Peptide (BNP) 23 Narrative: DIFFERENTIAL AUTO Neutrophil absolute 6.4 Immature granulocyte absolute 0.0 Lymphocytes absolute 2.4 Monocyte absolute 0.8 Eosinophils absolute 0.5 Basophils, abs 0.0 Neutrophils 62.9 Immature granulocytes 0.4 Lymphocytes 23.7 Monocytes 8.0 Eosinophils 4.5 Basophils 0.5 Narrative: EGFR GFR 98 Narrative: POCT GLUCOSE DEVICE POCT GLUCOSE DEVICE Glucose, POC, bld 183 Narrative: No orders to display BP 104/67 Pulse 90 Temp 36.4 ??C (97.6 ??F) (Oral) Resp 18 Ht 154.9 cm (5' 1 ) Wt 125.2 kg (276 lb) SpO2 94% BMI 52.15 kg/m?? ECG 12 lead Date/Time: 01/14/2018 9:25 PM Performed by: TAYLOR BENEDICT Authorized by: TAYLOR BENEDICT Comments: NSR , heart rate of 91, normal pr waves, normal qrs waves, no st elevation MDM ED Course as of Jan 16 432 Time: 01/15 59 Comment: The patient has been informed that they may have pre-hypertension or Hypertension based ngoc blood pressure reading in the Emergency Department. I recommend that the patient call the primarycare provider listed on their discharge instructions or a physician of their choice this week to arrange follow up for further evaluation of possible Hypertension. By: Adriel Penny Type 2 diabetes mellitus without complication, with long-term current use of insulin ([facility]) This note is prepared by Adriel Penny, acting as a scribe for Taylor Benedict MD. I, Taylor Benedict MD have personally performed the services described in the documentation, as recorded by the scribe in my presence. I electronically signed this note at 11:35 PM on 01/14/2018. Taylor Benedict MD 01/15/18 0432 * Mariely Mcmillan RN - 01/14/2018 11:13 PM CDT Bed: ED03 Expected date: Expected time: Means of arrival: Comments: CLOSED Mariely Mcmillan RN 01/14/18 [id number] * Kip Keller RN - 01/14/2018 9:15 PM CDT Pt states her blood sugars have been running high. States was over 500 45 minutes ago documented in this encounter Plan of Treatment Not on file documented as of this encounter Procedures Procedure Name Priority Date/Time Associated Diagnosis Comments POCT GLUCOSE DEVICE Routine 01/15/2018 3 :10 AM CDT EGFR STAT 01/15/2018 12:15 AM CDT DIFFERENTIAL AUTO STAT 01/15/2018 12: 15 AM CDT URINALYSIS AND REFLEX TO MICROSCOPIC AND CULTURE STAT 01/15/2018 12:15 AM CDT CBC WITH AUTO DIFFERENTIAL STAT 01/15/2018 12:15 AM CDT TROPONIN I STAT 01/15/2018 12:15 AM CDT URINALYSIS, MICROSCOPIC ONLY STAT 01/15/2018 12:15 AM CDT B-TYPE NATRIURETIC PEPTIDE STAT 01/15/2018 12:15 AM CDT COMPREHENSIVE METABOLIC PANEL STAT 01/15/2018 12:15 AM CDT ECG 12-LEAD STAT 01/14/2018 9:25 PM CDT POCT GLUCOSE DEVICE Routine 01/14/2018 9 :19 PM CDT documented in this encounter Results * POCT glucose (01/15/2018 3:10 AM CDT) Glucose, POC 183 70 - 199 mg/dL [facility] Blood specimen (specimen) 01/15/2018 3:10 AM CDT 01/15/2018 3:10 AM CDT Narrative [facility] - 01/15/2018 3:14 AM CDT us Notinfile Unknown LAB POCT ORDERABLES - DEVICE F inal Result [facility] [address] Department of Laboratories [place] [id number] * eGFR (01/15/2018 12:15 AM CDT) eGFR 98 mL/min/1.7 3 m2 [facility] Comment: Interpretive Data Reference Interval Normal ?>/= 90 mL/min/1.73m2 Mildly decreased* ? 60 - 89 mL/min/1.73m2 Mildly to moderately decreased ?45 - 59 mL/min/1.73m2 Moderately to severely decreased ??30 - 44 mL/min/1.73m2 Severely decreased ?15 - 29 mL/min/1.73m2 Kidney Failure ?< 15 ??mL/min/1.73m2 *Relative to young adult level If -Thai multiply value by 1.16. Estimated glomerular filtration [...] was last reviewed 2015. Blood specimen (specimen) 01/15/2018 12:15 AM CDT 01/15/2018 12:23 AM CDT Narrative MARY JANE - 01/15/2018 12:44 AM CDT Erick Davis MD LAB BLOOD ORDERABLES Final Result Performing Organization Address [facility] de Phone Number BCPUJA ARNOLD [address] [address] [employer] [place], [place] [id number] * (ABNORMAL) Urinalysis, microscopic only (01/15/2018 12:15 AM CDT) WBC, ur 0-5 0 - 5 /HPF [facility] RBC, ur 0-5 0 - 5 /HPF [facility] Epithelial cells, squamous, ur 1-5 0 - 5 /HPF [facility] Mucous, ur Present(A) [facility] Urine, clean voided 01/15/2018 12:15 AM CDT 01/15/2018 12:24 AM CDT Narrative MARY JANE - 01/15/2018 12:51 AM CDT Erick Davis MD LAB URINE ORDERABLES Final Result Performing Organization Address [facility] de Phone Number MARY JANE ARNOLD [address] [address] Department [place] [address] * Differential, auto (01/15/2018 12:15 AM CDT) Neutrophil abs 6.4 1.7 - 6.5 K/cumm [facility] Imm gran abs 0.0 0.0 - 0.1 K/cumm [facility] Lymphocyte abs 2.4 0.8 - 3.3 K/cumm [facility] Monocyte abs 0.8 0.2 - 0.8 K/cumm [facility] Eosinophil abs 0.5 0.0 - 0.5 K/cumm [facility] Basophil abs 0.0 0.0 - 0.1 K/cumm [facility] Neutrophil pct 62.9 % [facility] Comment: Interpretive Data Percent cell count reference ranges are not reported, since discordance with absolute values may lead to misinterpretation of CBC data. Current Interpretive Data was last revised on 2017. Imm gran pct 0.4 % [facility] Comment: Interpretive Data Percent cell count reference ranges are not reported, since discordance with absolute values may lead to misinterpretation of CBC data. Current Interpretive Data was last revised on 2017. Lymphocyte pct 23.7 % [facility] Comment: Interpretive Data Percent cell count reference ranges are not reported, since discordance with absolute values may lead to misinterpretation of CBC data. Current Interpretive Data was last revised on 2017. Monocyte pct 8.0 % [facility] Comment: Interpretive Data Percent cell count reference ranges are not reported, since discordance with absolute values may lead to misinterpretation of CBC data. Current Interpretive Data was last revised on 2017. Eosinophil pct 4.5 % [facility] Comment: Interpretive Data Percent cell count reference ranges are not reported, since discordance with absolute values may lead to misinterpretation of CBC data. Current Interpretive Data was last revised on 2017. Basophil pct 0.5 % [facility] Comment: Interpretive Data Percent cell count reference ranges are not reported, since discordance with absolute values may lead to misinterpretation of CBC data. Current Interpretive Data was last revised on 2017. Blood specimen (specimen) 01/15/2018 12:15 AM CDT 01/15/2018 12:23 AM CDT Narrative [facility] - 01/15/2018 12:30 AM CDT us Erick Davis MD LAB BLOOD ORDERABLES Final Result M[facility] JANE [address] [address] Department [place] [address] * B-type natriuretic peptide (01/15/2018 12:15 AM CDT) B-Type Natriuretic Peptide (BNP) 23 0 - 100 pg/mL [facility] Blood specimen (specimen) 01/15/2018 12:15 AM CDT 01/15/2018 12:23 AM CDT Narrative [facility] - 01/15/2018 12:59 AM CDT Erick Davis MD LAB BLOOD ORDERABLES Final Result Performing Organization Address [facility] Phone Number MARY JANE [address] Department [place] [address] * Troponin I (01/15/2018 12:15 AM CDT) Pathologist [facility] Troponin I <0.03 0.00 - 0.14 ng/mL [facility] Comment: Interpretive Data Normal: ? 0.00 - 0.14 ng/mL Indeterminate: ?0.15 - 0.50 ng/mL VT / Cardiac Muscle Damage: ? >0.50 ng/mL Current interpretive data was last reviewed 2015 Blood specimen (specimen) 01/15/2018 12:15 AM CDT 01/15/2018 12:23 AM CDT Narrative MARY JANE - 01/15/2018 12:49 AM CDT Erick Davis MD LAB BLOOD ORDERABLES Final Result Performing Organization Address [facility] de Phone Number MARY JANE [address] [address] [place] [address] * (ABNORMAL) Urinalysis reflex to microscopic and culture Urine, clean voided (01/15/2018 12:15 AM CDT) Color, ur Yellow Yellow [facility] Clarity, ur Clear Clear [facility] Specific gravity, ur 1.020 1.010 - 1.025 [facility] pH, urine 5.0 [facility] Protein, ur ql Negative Negative [facility] Glucose, ur ql 3+(A) Negative [facility] Ketones, ur Negative Negative [facility] Bilirubin, ur Negative Negative [facility] Blood, ur 1+(A) Negative [facility] Urobilinogen, ur <2.0 <2.0 mg/dL [facility] Nitrite, ur Negative Negative [facility] Leukocyte esterase, ur Negative Negative [facility] Urine, clean voided 01/15/2018 12:15 AM CDT 01/15/2018 12:24 AM CDT Narrative [facility] - 01/15/2018 12:33 AM CDT ?? Urine pH is affected by diet, medications, systemic acid-base disturbances, and renal tubular function. ??pH may affect urinary stone formation. ??For example, urine pH below 6.0 may help reduce the tendency for calcium phosphate stones and pH greater than 6.0 may reduce the tendency for uric acid stone formation. Source: [facility] [employer]. Last revised 05-04-2017 Erick Davis MD LAB MICROBIOLOGY - GENERAL ORDERABLES Final Result [facility] [address] [address] Department [place] [address] * (ABNORMAL) Comprehensive metabolic panel (01/15/2018 12:15 AM CDT) Sodium 135 135 - 145 mmol/L [facility] Potassium, pl 4.2 3.5 - 5.1 mmol/L [facility] Chloride 104 100 - 114 mmol/L [facility] CO2 23 22 - 32 mmol/L [facility] Anion gap 12 8 - 16 mmol/L [facility] BUN 14 8 - 24 mg/dL [facility] Creatinine 0.60 0.60 - 1.30 mg/dL [facility] Glucose 335(H) 70 - 199 mg/dL [facility] Comment: Interpretive Data Fasting glucose >/= 126 [...] interpretive data was last revised 2017. Calcium 9.1 8.4 - 10.5 mg/dL [facility] Bilirubin, total 0.40 0.10 - 1.30 mg/dL [facility] Protein, pl 7.3 6.0 - 8.3 g/dL [facility] Albumin 3.0(L) 3.2 - 4.8 g/dL [facility] Alk phos 74 30 - 110 Units/L [facility] ALT 15 1 - 45 Units/L [facility] AST 15 7 - 40 Units/L [facility] Blood specimen (specimen) 01/15/2018 12:15 AM CDT 01/15/2018 12:23 AM CDT Narrative [facility] - 01/15/2018 12:44 AM CDT us Erick Davis MD LAB BLOOD ORDERABLES Final Result [facility] [address] [address] Department [place] [address] * (ABNORMAL) CBC with auto differential (01/15/2018 12:15 AM CDT) WBC 10.2(H) 3.8 - 9.9 K/cumm [facility] Hgb 11.8(L) 11.9 - 15.5 g/dL [facility] Hct 37.4 35.6 - 45.5 % [facility] Plt 295 150 - 400 K/cumm [facility] MPV 10.0 9.1 - 12.3 fL [facility] RBC 4.28 3.90 - 5.20 M/cumm [facility] MCV 87.4 81.3 - 96.4 fL [facility] MCH 27.6 27.1 - 33.3 pg [facility] MCHC 31.6(L) 32.3 - 35.7 g/dL [facility] RDW CV 14.6 11.1 - 14.9 % [facility] RDW SD 46.6 35.7 - 48.1 fL [facility] NRBC abs 0.00 0.00 - 0.01 K/cumm [facility] Blood specimen (specimen) 01/15/2018 12:15 AM CDT 01/15/2018 12:23 AM CDT Narrative MARY JANE - 01/15/2018 12:30 AM CDT us Erick Davis MD LAB BLOOD ORDERABLES Final Result Performing Organization Address City/[facility]/ZIP Co de Phone Number [facility] [address] [address] Department [place] [address] * ECG 12 lead (01/14/2018 9:25 PM CDT) Pathologist [facility] Patient age 62 years [facility] Interpretation Text SINUS RHYTHMPOSSIBLE RIGHT VENTRICULAR CONDUCTION DELAYBORDERLINE ECGPREVIOUS TRACIN12/15/2017 23.13No significant change compared to prior ECG [facility] Comment:Physician Interprete r Dr. Ramon De M.D. Ventricular Rate EKG/Min 91 /min [facility] P Wave Duration 111 ms [facility] QRS-Interval (MSEC) 83 ms [facility] VA-Interval (MSEC) 132 ms [facility] QT Interval 341 ms [facility] QTc 395 ms [facility] QTC Interval ms [facility] P Verbena 13 deg [facility] QRS Verbena 7 deg [facility] T Verbena 60 deg [facility] 01/14/2018 9:25 PM CDT us Taylor Benedict MD ECG ORDERABLES Final Resul t Performing Organization Address City/[facility] Co de Phone Number [facility] * (ABNORMAL) POCT glucose (01/14/2018 9:19 PM CDT) Pathologist [facility] Glucose, POC 393(H) 70 - 199 mg/dL [facility] Glucose comment 1 RN/MD Notified MARY JANE Blood specimen (specimen) 01/14/2018 9:19 PM CDT 01/14/2018 9:19 PM CDT Narrative [facility] - 01/14/2018 9:22 PM CDT us Notinfile Unknown LAB POCT ORDERABLES - DEVICE F inal Result MARY JANE ARNOLD [address] Department [place] [address] documented in this encounter Visit Diagnoses Diagnosis Type 2 diabetes mellitus without complication, with long-term current use of insulin (CMS/HCC) (HCC)- Primary documented in this encounter Administered Medications Inactive Administered Medications - up to 3 most recent administrations Medication Order MAR Action Action Date Dose Rate Site insulin regular (HumuLIN R, NovoLIN R) injection 6 Units 6 Units, subcutaneous, Once, On Mon01/15/18 at 0020, For 1 dose Given 01/15/2018 12:28 AM CDT 6 Units Right Upper Arm morphine injection 4 mg 4 mg, intravenous, Once, On Mon01/15/18 at 0020, For 1 dose Given 01/15/2018 12:29 AM CDT 4 mg ondansetron (ZOFRAN) injection 4 mg 4 mg, intravenous, Once, On Mon01/15/18 at 0020, For 1 dose Given 01/15/2018 12:29 AM CDT 4 mg documented in this encounter Active and Recently Administered Medications Times are shown in CDT. Scheduled Medication Order 01/13/2018 01/14/2018 01/15/2018 insulin regular (HumuLIN R, NovoLIN R) injection 6 Units (COMPLETED) 6 Units, subcutaneous, Once, On Mon01/15/18 at 0020, For 1 dose 0028 (Given - Provid er: Mariely Mcmillan RN) morphine injection 4 mg (COMPLETED) 4 mg, intravenous, Once, On Mon01/15/18 at 0020, For 1 dose 0029 (Given - Provid er: Mariely Mcmillan RN) ondansetron (ZOFRAN) injection 4 mg (COMPLETED) 4 mg, intravenous, Once, On Mon01/15/18 at 0020, For 1 dose 0029 (Given - Provid er: Mariely Mcmillan, NURIS) documented in this encounter Orders Lab Orders Without Results Count Last Ordered D ate First Ordered Date POCT GLUCOSE DEVICE 1 01/14/2018 documented in this encounter Care Teams University Intern Relationship Specialty Start Date End Date Justen Gale MD [address] [facility] [address] [place] [address] PCP - General 10/09/17 Liu Jerez MD Consulting Physician Gastroenterology 07/28/17 [place] [address] [address] [facility] [address] [place] [address] Consulting Physician Pulmonary Disease 08/03/17 [place] [address] [place] [address] [address] [place] [address] Medical Oncologist/Quality Control Representative Medical Oncology 10/23/17 [place] [address] [address] [facility] [address] [place] [address] Surgeon Orthopedic Surgery 10/23/17 [place] [address] [address] [facility] [address] [place] [address] Consulting Physician Pain Management 10/23/17 documented as of this encounter
--- OUTSIDE RECORDS SUMMARY | 2024-04-26 04:26 | XMS_ITS | Encounter Summary ---
Author Organization [facility] Healthcare Address [address] [place] [address] Care Team Providers Care Dietary Internship Name Role Phone Liu Jerez MD Unavailable Albert Corbin MD Unavailable Justen Gale MD Primary Care Provider Khris Arthur MD Unavailable [phone] Ko Melendez MD Unavailable [phone] John Paul Moyer MD Unavailable Encounter Details Date Type Department Care Team (Latest Contact Info) Description 12/31/2017 11:48 PM CDT - 12/31/2017 11:59 PM CDT Hospital Encounter [facility] Diagnostic Imaging [address] [place] [address] Discharge Disposition: Discharge to home [...] on file 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 Gender Identity Not on file Sexual Orientation [...] Use as directed 11/09/2017 8 blood-glucose meter [facility] Diagnosis: Diabetes Type 2 Blood testing frequency: [...] Name Priority Date/Time Associated Diagnosis Comments XR SPINE LUMBAR COMPLETE 4 OR MORE VIEWS ED 01/01/2018 12:06 AM CDT XR HIP LEFT 2 OR 3 VIEWS ED 01/01/2018 12:06 AM CDT documented in this encounter Results * XR Spine Lumbar Complete 4 Or More (01/01/2018 12:06 AM CDT) Anatomical Region Laterality Modality Spine N/A Computed Radiogr aphy 01/01/2018 8:12 AM CDT Impressions 01/01/2018 8:15 AM CDT No acute fracture or subluxation. Electronically signed by: Avelino Alonso M.D. Narrative 01/01/2018 8:15 AM CDT RESULT: EXAMINATION: LUMBAR SPINE RADIOGRAPHS, 5 VIEWS Date: 12/31/2017 11:50 PM History: Low back pain Findings: There is no acute fracture or subluxation. ??There is multilevel facet arthropathy most predominant at L4-L5 and L5-S1. Vertebral body heights are well-maintained. Procedure Note Avelino Alonso MD - 01/01/2018 RESULT: EXAMINATION: LUMBAR SPINE RADIOGRAPHS, 5 VIEWS Date: 12/31/2017 11:50 PM History: Low back pain Findings: There is no acute fracture or subluxation. There is multilevel facet arthropathy most predominant at L4-L5 and L5-S1. Vertebral body heights are well-maintained. IMPRESSION: No acute fracture or subluxation. Electronically signed by: Avelino Alonso M.D. Enmanuel Dubon MD IMG XR PROCEDURES Final Res ult * XR Hip Left 2+ views (01/01/2018 12:06 AM CDT) Anatomical Region Laterality Modality Lower Extremities, Hip, Pelvis Left C omputed Radiography 01/01/2018 8:10 AM CDT Impressions 01/01/2018 8:11 AM CDT No acute osseous abnormality. Electronically signed by: Avelino Alonso M.D. Narrative 01/01/2018 8:11 AM CDT RESULT: EXAMINATION: LEFT HIP RADIOGRAPHS, 2 VIEWS Date: 12/31/2017 11:50 PM History: Pain Findings: There is no acute fracture or dislocation. The osseous density and left hip joint space are normal. Procedure Note Avelino Alonso MD - 01/01/2018 RESULT: EXAMINATION: LEFT HIP RADIOGRAPHS, 2 VIEWS Date: 12/31/2017 11:50 PM History: Pain Findings: There is no acute fracture or dislocation. The osseous density and left hip joint space are normal. IMPRESSION: No acute osseous abnormality. Electronically signed by: Avelino Alonso M.D. us Enmanuel Dubon MD IMG XR PROCEDURES Final Res ult documented in this encounter Visit Diagnoses Not on filedocumented in this encounter Discontinued Medications Medication Sig Discontinue Reason Start Date End Da te HYDROcodone-acetaminophe n (NORCO) 5-325 mg per tablet Take 1 tablet by mouth every 8 (eight) hours as needed for pain. 10/31/2017 01/01/2018 traMADol (ULTRAM) 50 mg tablet Take 1 tablet (50 mg total) by mouth every 4 (four) hours as needed for pain. 11/28/2017 01/01/2018 cyclobenzaprine (FLEXERIL) 5 mg tablet TK 1 T PO TID FOR 14 DAYS 11/16/2017 01/01/2018 documented as of this encounter Care Teams Dietary Internship Relationship Specialty Start Date End Date Justen Gale MD [address] [address] PCP - General 10/09/17 Liu Jerez MD Consulting Physician Gastroenterology 07/28/17 [place] [address] [address] [facility] [address] [place] [address] Consulting Physician Pulmonary Disease 08/03/17 Khris Arthur MD [address] [facility] [address] [place] [address] Medical Oncologist/Denitrator Operator Medical Oncology 10/23/17 [place] [address] [address] [facility] [address] [place] [address] Surgeon Orthopedic Surgery 10/23/17 [place] [address] [address] [facility] [address] [place] [address] Consulting Physician Pain Management 10/23/17 documented as of this encounter
--- OUTSIDE RECORDS SUMMARY | 2024-04-26 04:26 | XMS_ITS | Encounter Summary ---
Author Organization [facility] Healthcare Address [address] [place] [address] Care Team Providers Care Technician Plant And Maintenance Name Role Phone Liu Jerez MD Unavailable Albert Corbin MD Unavailable [phone] Justen Gale MD Primary Care Provider [phone] Khris Arthur MD Unavailable [phone] Ko Melendez MD Unavailable John Paul Moyer MD Unavailable Encounter Details Date Type Department Care Team (Latest Contact Info) Description 12/15/2017 11:33 PM CDT - 12/15/2017 11:59 PM CDT Hospital Encounter [facility] Diagnostic Imaging [address] [place] [address] [place] [address] [facility] [address] [place] [address] Discharge Disposition: Discharge to home [...] on file 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 Electronically signed by: Brando Restrepo M.D. Erick Davis MD IMG XR PROCEDURES Final Re sult documented in this encounter Visit Diagnoses Not on filedocumented in this encounter Care Teams Technician Plant And Maintenance Relationship Specialty Start Date End Date Justen Gale MD [address] [address] PCP - General 10/09/17 Liu Jerez MD Consulting Physician Gastroenterology 07/28/17 [place] [address] [address] [facility] [address] [place] [address] Consulting Physician Pulmonary Disease 08/03/17 Khris Arthur MD [address] [facility] [address] [place] [address] Medical Oncologist/Communications Systems Engineer Medical Oncology 10/23/17 [place] [address] [address] [facility] [address] [place] [address] Surgeon Orthopedic Surgery 10/23/17 [place] [address] [address] [facility] [address] [place] [address] Consulting Physician Pain Management 10/23/17 documented as of this encounter
--- OUTSIDE RECORDS SUMMARY | 2024-04-26 04:26 | XMS_ITS | Encounter Summary ---
Author Organization [facility] Healthcare Address [address] [place] [address] Care Team Providers Care Manager Strategic Marketing Name Role Phone Liu Jerez MD Unavailable Albert Corbin MD Unavailable Justen Gale MD Primary Care Provider Khris Arthur MD Unavailable [phone] Ko Melendez MD Unavailable John Paul Moyer MD Unavailable Encounter Details Date Type Department Care Team (Latest Contact Info) Description 01/25/2018 10:49 AM CDT - 01/25/2018 5:06 PM CDT Hospital Encounter [facility] Imaging and Radiology [address] [place] [address] [place] [address] [facility] [address] [place] [address] Discharge Disposition: Discharge to home [...] on file 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 01/01/2018 2 insulin glargine (LANTUS) 100 unit/mL injection Inject 50 Units under the skin daily. Takes in the morning 8 insulin glargine (LANTUS) 100 unit/mL injection Inject 40 Units under the skin daily. Takes in the morning 01/26/2018 4 insulin lispro (HumaLOG) 100 unit/mL injection Inject 15 Units under the skin 3 (three) times a day with meals. 10 mL 11/14/2017 8 insulin lispro (HumaLOG) 100 unit/mL injection Inject 12 Units under the skin 3 (three) times a day before meals. 01/26/2018 4 lancets (ONETOUCH DELICA LANCETS) 33 gauge misc by Not Applicable route 4 times daily 01/19/2018 1 lisinopril (PRINIVIL,ZESTRI L) 20 mg tablet Take 20 mg by mouth. 05/11/2012 2 oxybutynin (DITROPAN) 5 mg tablet take 1 tablet by oral route every day 0 0 12/12/2013 3 polyethylene glycol (MIRALAX) 17 gram/dose powder Mix 1 scoop (17 g) in 8 oz of water and drink daily. 527 g 08/15/2017 1 rivaroxaban (XARELTO) 20 mg tablet Take 20 mg by mouth. 08/08/2017 8 documented as of this encounter Discharge Disposition Disposition Code Departure Means Destination Discharge to home or self care documented in this encounter Plan of Treatment Not on file documented as of this encounter Procedures Procedure Name Priority Date/Time Associated Diagnosis Comments CTA HEAD NECK W WO CONTRAST IP Routine 01/25/2018 6:25 PM CDT documented in this encounter Visit Diagnoses Not on filedocumented in this encounter Administered Medications Inactive Administered Medications - up to 3 most recent administrations Medication Order MAR Action Action Date Dose Rate Site ioversol (OPTIRAY 350) syringe syringe 100 mL 100 mL, intravenous, Once in imaging, contrast, Starting on Valeri 01/25/18 at 1807, For 1 dose Given 01/25/2018 6:10 PM CDT 95 mL Right Antecubital documented in this encounter Orders Medications Ordered That Tyler ht Not Have Been Administered Count Last Ordered Date First Ordered Date ioversol (OPTIRAY 350) syrin ge syringe 100 mL 1 01/25/2018 documented in this encounter Care Teams Manager Strategic Marketing Relationship Specialty Start Date End Date Justen Gale MD [address] [address] PCP - General 10/09/17 Liu Jerez MD Consulting Physician Gastroenterology 07/28/17 [place] [address] [facility] [address] [place] [address] Consulting Physician Pulmonary Disease 08/03/17 Khris Arthur MD [address] [facility] [address] [place] [address] Medical Oncologist/Lithographing Machine Operator Medical Oncology 7/2/18 [place] [address] [address] Surgeon Orthopedic Surgery 10/23/17 [place] [address] [address] Consulting Physician Pain Management 10/23/17 documented as of this encounter
--- OUTSIDE RECORDS SUMMARY | 2024-04-26 04:26 | XMS_ITS | Encounter Summary ---
Author Organization [facility] Healthcare Address [address] [place] [address] Care Team Providers Care Tire Balancer Name Role Phone Liu Jerez MD Unavailable Albert Corbin MD Unavailable [phone] Justen Gale MD Primary Care Provider [phone] Khris Arthur MD Unavailable [phone] Ko Melendez MD Unavailable John Paul Moyer MD Unavailable Annel Rod MD Unavailable Anali MARSHALL MD, Carlos M. Unavailable Reason for Visit * Reason Comments Headache Extremity Weakness Encounter Details Date Type Department Care Team (Latest Contact Info) Description 01/23/2018 4:08 PM CDT - 01/26/2018 6:55 PM CDT Hospital Encounter [place] [id number] [place] [address] Erick Davis MD [address] [place] [address] [address] [place] [phone] [place] [id number] [facility] [address] [place] [address] [place] [address] [facility] [address] [place] [address] [place] [id number] [facility] [address] [place] [address] Numbness (Primary Dx); Radiculopathy, unspecified spinal region Discharge Disposition: Discharge to home or self care Social History Tobacco Use Types Packs/Day Years Used Date Smoking Tobacco: Former Smokeless Tobacco: Never Comments:remote tobacco use Alcohol Use Standard Drinks/Week Comments No 0 (1 standard drink = 0.6 oz pur e alcohol) Comments No Sex and Gender Information Value Date Recorded Sex Assigned at Not on file 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 Gender Identity Not on file Sexual Orientation Not on file documented as of this encounter Last Filed Vital Signs Vital Sign Reading Time Taken Comments Blood Pressure 102/61 01/26/2018 4:05 PM CDT Pulse 102 01/26/2018 4:05 PM CDT Temperature 36.6 ??C (97.9 ??F) 01/26/2018 4:05 PM CD T Respiratory Rate 19 01/26/2018 4:05 PM CDT Oxygen Saturation 97% 01/26/2018 4:05 PM CDT Inhaled Oxygen Concentration - - Weight 127 kg (280 lb) 01/23/2018 7:15 PM CDT Height 154.9 cm (5' 0.98 ) 01/24/2018 11:57 AM C DT Body Mass Index 52.93 01/23/2018 7:15 PM CDT documented in this encounter Discharge Summaries * Elo Aceves MD - 01/26/2018 6:03 PM CDT Inpatient Discharge Summary Admitting Provider: Justen Tavarez MD Discharge Provider: Elo Aceves MD Primary Care Physician at Discharge: Justen Gale MD [phone] Date Of Service: 01/26/2018 Admission Date: 01/23/2018 Discharge Date: 01/26/2018 Discharge Diagnosis: CVA ruled out Dyslipidemia with elevated LDL in the setting of diabetes Essential hypertension Restless leg syndrome Type 2 diabetes mellitus H/o 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 Cervical DJD C6-7 Breast CA (CMS/HCC) Hyponatremia-resolved Chronic pain DETAILS OF HOSPITAL STAY Hospital Course: Patient is a pleasant 62 year old female admitted from her pain management physician Dr. Smith's office. Patient had a headache, visual symptoms- photosensitivity/tunnel vision, neck stiffness, right sided numbness all of which have improved. She was initially thought to have had a stroke, she wasseen by neurology, stroke workup was negative and stroke was ruled out. Previous Echo July 2017 showed normal EF, mild pulmonary hypertension and patient may benefit from repeat outpatient sleep study in case NPPV needs adjustment if not already done. She was seen by ortho spine for bulging C5-6 disk-no evidence of cord compression as per Dr. Melendez-follow up outpatient. Patient's insulin doses - lantus and prandial were decreased due to stable blood sugars-patient will need to keep a record ofblood sugars and call her Facility Maintenance Supervisor Dr. Rod if too high or too low. She has also been asked to follow with endocrinology for further evaluation of mildly enlarged right thyroid lobe/nodules/calcifications seen on CT angiogram. Patient has been started on atorvastatin for LDL 101 in the setting of diabetes. She has also been asked to follow up with ophthalmology for a dilated eye exam and with neurology if headaches persist. Patient has overall been reassured and she is looking forward to going home and spending time with her three grandchildren. She has worked with therapy and was thought to be too good for acute rehab. Test Results Pending at Discharge: None Operative Procedures Performed: None Other Procedures: None Pertinent Test Results: Xr Spine Lumbar Complete 4 Or More Result Date: 01/01/2018 Narrative: RESULT: EXAMINATION: LUMBAR SPINE RADIOGRAPHS, 5 VIEWS Date: 12/31/2017 11:50 PM History: Low back pain Findings: There is no acute fracture or subluxation. There is multilevel facet arthropathy most predominant at L4-L5 and L5-S1. Vertebral body heights are well-maintained. Impression: No acute fracture or subluxation. Electronically signed by: Avelino Alonso M.D. Xr Hip Left 2+ Views Result Date: 01/01/2018 Narrative: RESULT: EXAMINATION: LEFT HIP RADIOGRAPHS, 2 VIEWS Date: 12/31/2017 11:50 PM History: PainFindings: There is no acute fracture or dislocation. The osseous density and left hip joint space are normal. Impression: No acute osseous abnormality. Electronically signed by: Avelino Alonso M.D. Xr Chest 1 Vw Portable Result Date: 01/23/2018 Narrative: RESULT: EXAM: XR CHEST 1 VIEW DATE: 01/23/2018 4:35 PM CLINICAL HISTORY: Headache, dizziness and dyspnea. COMPARISON: 12/15/2017 FINDINGS: Portable AP radiograph of the chest was obtained. The heart and mediastinum are within normal limits. The lungs are well-expanded and clear. No bony abnormality is seen. Impression: 1. No evidence of active cardiopulmonary disease. 2. No change from previous. Electronically signed by: Jimmie Paiz M.D. Mri Brain Wo Contrast Result Date: 01/26/2018 Narrative: MRI BRAIN WO CONTRAST HISTORY: Focal neuro deficit, > 6 hrs, stroke suspected. Acute cerebrovascular accident. TECHNIQUE: Noncontrast imaging was performed using axial and sagittal FLAIR, axial T1, T2 and diffusion-weighted sequences. COMPARISON: CT 01/25/2018 FINDINGS: The carney and white matter demonstrate normal morphology and signal characteristics. There is no evidence of acute intracranial hemorrhage, mass or infarction. Diffusion-weighted signal is normal throughout the cortical structures. The ventricles, gyri and sulci demonstrate normal size and configuration. Midline is normal. The extra-axial structures are unremarkable. Impression: NO EVIDENCE OF ACUTE INTRACRANIAL EVENT. Electronically signed by: Samson Fulton M.D. Mri Cervical Spine Wo Contrast Result Date: 01/26/2018 Narrative: MRI CERVICAL SPINE WO CONTRAST HISTORY: Radiculopathy. Neck pain. TECHNIQUE: Standard spine imaging was obtained using axial and sagittal T1 and T2 sequences without contrast. COMPARISON: None available. FINDINGS: The cervical column is normally aligned. There is no evidence of fracture,marrow edema, or osseous lesion. The craniocervical junction is normal. The visualized spinal cord is normal. The paraspinal soft tissues are normal. C1/2: The disc is normal. The spinal canal and neural foramina are patent. C2/3: The disc is normal. The spinal canal and neural foramina are patent.C3/4: The disc is normal. The spinal canal and neural foramina are patent. C4/5: The disc is normal. The spinal canal and neural foramina are patent. C5/6: The disc is normal. The spinal canal and neural foramina are patent. C6/7: Mild broad-based posterior disc bulging is present with no significant canal stenosis. Mild left foraminal stenosis is present secondary to eccentric disc bulging. C7/T1: The disc is normal. The spinal canal and neural foramina are patent. Impression: 1. MILD [id number] ECCENTRIC DISC BULGING AT C6-C7 CAUSING MINIMAL CANAL NARROWING AND MILD LEFT FORAMINAL NARROWING. 2. MINIMAL DIFFUSE DEGENERATIVE DISC DESICCATION OF THE CERVICAL SPINE. Electronically signed by: Samson Fulton M.D. Cta Head Neck W Wo Contrast Result Date: 01/26/2018 Narrative: RESULT: EXAMINATION: CTA HEAD NECK W WO CONTRAST dated 01/25/2018 10:50 AM HISTORY: 62-year-old woman with strokelike symptoms and suspected vascular disease. Previous history of breast carcinoma. History of diabetes and hypertension. Previous deep venous thrombosis. History of a pulmonary embolus. TECHNIQUE: CT angiographic protocol with pre and post contrasted images utilizing 95 mL of Optiray 350. Digital subtraction images with 2-D and 3-D reformations. Measurements based on NASCET criteria. FINDINGS: Prior examinations are not available for comparison. Mathematical Statistician radiograph and AP and lateral projections demonstrates no acute findings. Source images prior to contrast demonstrate age appropriate ventricles and sulci. No midline shift mass effect or hemorrhage. No masses seen within the cervical region. Lung apices are normally aerated. Small focal calcifications are seen in theright lobe of thyroid. Source images with contrast demonstrate normal vascular enhancement within the aorta, with patency of the great vessels in the neck. Small nodules are seen in the mildly enlarged right lobe of thyroid associated with the calcifications. Normal enhancement around the [place] of[place]is. No abnormal intracranial enhancement is seen. Patency of the deep venous sinuses. Review of 2-D and 3-D images of the neck compromised by patient body habitus. The origin of great vessels from the aortic arch is grossly normal. Common carotid arteries are normal bilaterally. The bifurcations are normal with normal internal and external carotid arteries without hemodynamically significant areas of stenosis. No tandem lesions are seen. The vertebral arteries are grossly patent without stenosis with a dominant left vertebral artery. Examination of the intracranial circulation demonstrates normal vertebral and basilar arteries. Posterior cerebral arteries and superior cerebellar arteries are normal. Posterior communicating arteries are hypoplastic Intracranial internal carotid arteries, anterior and middle cerebral arteries appear to be normal without stenosis or occlusion. No aneurysmal dilatations are seen. Impression: NORMAL STUDY Electronically signed by: Manohar Quigley M.D. Ct Stroke Head Wo Contrast Result Date: 01/23/2018 Narrative: RESULT: EXAMINATION: CT STROKE HEAD WO CONTRAST HISTORY: Right arm weakness. Headache. Stroke. TECHNIQUE: Noncontrast CT of the brain was performed with axial images acquired from skull base to vertex. COMPARISON: Head CT dated 11/27/2017. FINDINGS: There are no acute intra- or extra-axial fluid collections. Ventricles are of normal size, shape, and configuration. No mass effect or midline shift is present. The basal cisterns are patent. The carney- white matter differentiation is normal. The visualized portions of the orbits, paranasal sinuses, and mastoids are normal. No fractures are identified. Impression: 1. No acute intracranial process. Findings reported by Dr. Ariel Josehp to Dr. Davis on 01/23/2018 at 4:31 PM. Electronically signed by: Brando Restrepo M.D. Recent Labs Lab Units 01/25/18 0416 WHITE BLOOD CELLS K/cumm 9.5 HEMOGLOBIN g/dL 11.8* HEMATOCRIT % 38.5 PLATELETS K/cumm 307 Recent Labs Lab Units 01/26/18 1634 01/25/18 0416 01/24/18 0629 SODIUM mmol/L -- -- 136 -- 131* POTASSIUM PLASMA mmol/L -- -- 4.3 -- 3.8 CHLORIDE mmol/L -- -- 104 -- 100 CO2 mmol/L -- -- 25 -- 26 ANIONGAP mmol/L -- -- 11 -- 9 GLUCOSE mg/dL -- -- 155 -- 137 POC GLUCOSE MONITOR mg/dL 122 < > -- < > -- BUN SERUM mg/dL -- -- 21 -- 14 CREATININE mg/dL -- -- 0.66 -- 0.59* CALCIUM mg/dL -- -- 9.4 -- 9.1 ALBUMIN g/dL -- -- -- -- 2.9* ALK PHOS Units/L -- -- -- -- 67 ALT Units/L -- -- -- -- 15 AST Units/L -- -- -- -- 17 BILIRUBIN TOTAL mg/dL -- -- -- -- 1.00 < > = values in this interval not displayed. Physical Exam at Discharge: Discharge Condition: fair Vitals: 01/26/18 0800 01/26/18 0900 01/26/18 1200 01/26/18 1605 BP: 123/73 131/76 102/61 BP Location: Left arm Left arm Left arm Patient Position: Sitting Pulse: 87 85 79 102 Resp: Temp: 36.6 ??C (97.9 ??F) 36.7 ??C (98 ??F) 36.6 ??C (97.9 ??F) TempSrc: Oral Oral Oral SpO2: 98% 98% 97% Weight: Height: Physical exam: Gen:Well built female Lungs:Symmetrical breath sounds b/l Heart:s1,S2 heard Abdomen:Soft, NT, BS+ Extremities:No edema b/l LE Neuro:Alert, awake, oriented to self and surroundings, is able to move all extremities Discharge Disposition: Disposition: Home. Code Status at Discharge: Full Code Discharge Instructions: Activity Instructions Discharge Activity: Walking -You may walk as tolerated. Discharge activity: Resume normal activity Discharge activity: Shower -You may shower. No tub baths if you have a wound or incision. Diet Instructions Adult Discharge Diet Diet Type: Restrict salt intake to less than 4000 mg per day Low fat intake Other (specify) Explanatory Comment: 1600 calorie consistent carb Consistent Carbohydrate diet (60-75 grams of carbohydrates per meal, with 3 meals per day) Sodium Restricted diet (2,000 mg daily, with no added salt) Call [phone] if you have questions about your diet Other Instructions Call provider for: Temperature [...] headache, visual disturbances, weakness and speech changes Discharge Medications: Current Discharge Medication List CONTINUE these medications which have NOT CHANGED Details exemestane (AROMASIN) 25 mg tablet TAKE 1 TABLET BY MOUTH DAILY AFTER A MEAL Qty: 30 tablet, Refills: 0 Comments: Please have patient call office for scheduling [phone]. No further refills will be given. Thanks HYDROcodone-acetaminophen (NORCO) 5-325 mg per tablet Take by mouth. lisinopril (PRINIVIL,ZESTRIL) 20 mg tablet Take 20 mg by mouth. oxybutynin (DITROPAN) 5 mg tablet take 1 tablet by oral route every day Qty: 0, Refills: 0 polyethylene glycol (MIRALAX) 17 gram/dose powder Mix 1 scoop (17 g) in 8 oz of water and drink daily. Qty: 527 g, Refills: 0 rivaroxaban (XARELTO) 20 mg tablet Take 20 mg by mouth. rOPINIRole (REQUIP) 5 mg tablet Take 5 mg by mouth. Current Discharge Medication List CONTINUE these medications which have CHANGED Details insulin glargine (LANTUS) 100 unit/mL injection Inject 40 Units under the skin daily. Takes in the morning insulin lispro (HumaLOG) 100 unit/mL injection Inject 12 Units under the skin 3 (three) times a daybefore meals. Current Discharge Medication List START taking these medications Details atorvastatin (LIPITOR) 10 mg tablet Take 1 tablet (10 mg total) by mouth nightly. Qty: 30 tablet, Refills: 0 Current Discharge Medication List Outpatient Follow-Up: Future Appointments Date Time Provider Department Center 07/17/2018 3:00 PM LAB, [facility] ONC LAB [facility] 07/17/2018 3:30 PM Khris Arthur MD ONC [facility] [place] [id number] [address] Schedule an appointment as soon as possible for a visit in 2 week(s) primary care provider Justen Gale MD 2 [facility] [address] [facility] [address] Annel Rod MD 2 [facility] [address] [facility] [address] follow up with endocrinology for further evaluation of right thyroid lobe enlargement/[place] [address] [facility] [address] [facility] [address] follow up with neurology within a week for further evaluation of headaches Follow-up with providerfollow up with ophthalmology within a week for dilated eye exam follow up with ophthalmology within a week for dilated eye exam Follow up with Dr. Smith pain management as soon as possible Discharge Time:Greater than 30 minutes Elo Aceves MD [facility] [phone] 01/26/2018 6:03 PM documented in this encounter Discharge Instructions * Discharge Instr - Diet* Jennifer Walker RD - 01/24/2018 12:05 PM CDT Consistent Carbohydrate diet (60-75 grams of carbohydrates per meal, with 3 meals per day) Sodium Restricted diet (2,000 mg daily, with no added salt) Call [phone] if you have questions about your diet * Attachments The following attachments cannot be sent through Care Everywhere. * Basic Carbohydrate Counting (Discharge Care) ([place]) * Low-Sodium Diet (Discharge Care) ([place]) documented in this encounter Medications at Time [...] 08/08/2017 8 documented as of this encounter Ordered Prescriptions Prescription Sig Dispense Quantity Refills Last Filled Start Date End Date atorvastatin (LIPITOR) 10 mg tablet Take 1 tablet (10 mg total) by mouth nightly. 30 tablet 01/26/2018 1 insulin lispro (HumaLOG) 100 unit/mL injection Inject 12 Units under the skin 3 (three) times a day before meals. 01/26/2018 4 insulin glargine (LANTUS) 100 unit/mL injection Inject 40 Units under the skin daily. Takes in the morning 01/26/2018 4 documented in this encounter Discharge Disposition Disposition Code Departure Means Destination Discharge to home or self care documented in this encounter Progress Notes * Archana Watkins, IT HELP DESK TECHNICIAN - 01/26/2018 12:20 PM CDT Physical Therapy PT PROGRESS NOTE Mohsen Marques 62 y.o. 1955 Past Medical History: Diagnosis Date ??? Adiposity [...] US SOFT TISSUE ABSCESS DRAIN N/A 10/24/2014 Patient Active Problem List Diagnosis ??? Restless legs syndrome ??? Pain of lower extremity ??? Generalized weakness ??? Dyspnea ??? Unintentional weight loss ??? Acute cystitis without hematuria ??? Nausea and vomiting ??? Essential hypertension ??? Chest pressure ??? Positive blood culture ??? Hyponatremia ??? Diet-controlled diabetes mellitus (CMS/HCC) ??? LUL (obstructive sleep apnea) ??? History of DVT (deep vein thrombosis) ??? History of pulmonary embolism ??? Chronic anticoagulation ??? Restless leg syndrome ??? Rash ??? Cellulitis of breast ??? Pain of foot ??? Arthralgia of ankle ??? Pulmonary embolism (CMS/HCC) ??? Lymphedema of left upper extremity ??? Cancer of overlapping sites of left female breast (CMS/HCC) ??? Acute left-sided low back pain with left-sided sciatica ??? Type 2 diabetes mellitus with neurologic complication, without long-term current use of insulin(CMS/HCC) ??? Essential hypertension ??? Long-term current use of opiate analgesic ??? Lumbosacral spondylosis without myelopathy ??? Radiculopathy, lumbosacral region ??? Spinal stenosis of lumbar region without neurogenic claudication ??? 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 ??? Type 2 diabetes mellitus with hyperglycemia, without long-term current use of insulin (CMS/HCC) ??? Constipation ??? Dysuria ??? Uncontrolled type 2 diabetes mellitus with hyperglycemia, with long-term current use of insulin(CMS/HCC) ??? Allergy to drug ??? 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 Anxiety and depression ??? CVA (cerebral vascular accident) (CMS/HCC) ??? Breast CA (CMS/HCC) TIME IN: 08:21 TIME OUT: 08:55 SUBJECTIVE Patient stated I think I'm doing better today. MENTAL STATUS: Alert ORIENTATION: Oriented x 4 PAIN: Pre-therapy pain level: 10 Pain location: back Pain intervention: states she does not want pain medication Post-therapy pain level/response to intervention: repositioned OBJECTIVE PRECAUTIONS: fall APPEARANCE/POSTURE: Patient standing at sink brushing her teeth. MOBILITY DOCUMENTATION: Bed Mobility/Transfers: Bed mobility- sit to/from supine to flat bed w/o rails to height of patient's bed at home w/SBA using log roll method Transfers- sit to/from stand from various heights w/MOD I Gait: Patient ambulated w/str cane w/SBA 175'x2 w/SBA w/slow andra, decreased step length and heel strike Stair training- 2 steps w/1 rail and str cane w/CGA performed x 2 EXERCISES: Sitting ex's 10 reps w/vc's for left LE, min assist/CGA for right LE EDUCATION: Gait, transfers, bed mobility, strengthening, home setting RESPONSE TO EDUCATION: needs reinforcement and verbalizes understanding ASSESSMENT Activity tolerance/response to P.T.: Patient tolerated therapy w/o complaints. Barriers to learning: none Barriers to discharge: Lower extremity weakness Patient continues progressing toward previously set goals which remain appropriate at this time. PLAN Patient to be seen for P.T. 3/5 times per week to address previously established deficits and goals. P.T. Recommendations: Home w/family 24 hour supervision assist and home health P.T. If this is the last note, please consider this the discharge summary. Cosigned by Sonali Liu, PT at 01/26/2018 2:03 PM CDT * Chioma Giles, CURTIS - 01/26/2018 10:42 AM CDT Neurology Daily Progress Note Subjective Chief complaint of numbness of right upper extremity. Interval History: The patient is awake and alert, working with physical therapist. She reports all symptoms are improving. Numbness persists in the right hand. There are no new neurological complaints. The MRI of the brain and CTA of the head and neck were unremarkable. The MRI of the cervical spine showed C6-C7 posterior disc bulging. Review of Systems Constitution: Negative for chills, diaphoresis, fever, weakness and malaise/fatigue. HENT: Negative for hearing loss and tinnitus. Eyes: Positive for visual disturbance. Negative for blurred vision and double vision. Cardiovascular: Negative for chest pain and syncope. Respiratory: Negative for cough and shortness of breath. Skin: Negative for rash. Musculoskeletal: Positive for muscle weakness and neck pain. Negative for myalgias and stiffness. Gastrointestinal: Negative for bowel incontinence, nausea and vomiting. Genitourinary: Negative for bladder incontinence. Neurological: Positive for focal weakness, numbness and sensory change. Negative for brief paralysis, difficulty with concentration, disturbances in coordination, dizziness, headaches, light-headedness, loss of balance, paresthesias, seizures and tremors. Psychiatric/Behavioral: Negative for altered mental status and memory loss. Current Facility-Administered Medications Medication Dose Route Frequency Provider Last Rate Last Dose ??? ALPRAZolam (XANAX) tablet 0.5 mg 0.5 mg oral Q6H PRN Britney Zavala NP 0.5 mg at [id number] ??? atorvastatin (LIPITOR) tablet 20 mg 20 mg oral Nightly Bebeto Briones MD 20 mg at 01/25/182049 ??? bewhqjojkh-duqhxcylnxvcp-vsueaprp (FIORICET, ESGIC) 50-325-40 mg per tablet 1 tablet 1 tablet oral Q6H PRN Britney Zavala NP 1 tablet at 01/26/18 0000 ??? cyclobenzaprine (FLEXERIL) tablet 10 mg 10 mg oral TID Bebeto Briones MD 10 mg at 01/26/18 08 ??? dextrose 50% (concentrated solution) CONCENTRATED solution 25 g 25 g intravenous Q15 Min PRN Britney Zavala NP ??? dextrose oral liquid liquid 15 g 15 g oral Q15 Min PRN Britney Zavala NP ??? exemestane (AROMASIN) tablet 25 mg 25 mg oral After dinner Britney Zavala NP 25 mg at 01/25/18 183 ??? glucagon injection 1 mg 1 mg intramuscular Q30 Min PRN Britney Zavala NP ??? HYDROcodone-acetaminophen (NORCO) 5-325 mg per tablet 1 tablet 1 tablet oral Q4H PRN Britney Zavala NP 1 tablet at 01/26/18 0420 ??? insulin glargine (LANTUS) injection 40 Units 40 Units subcutaneous QAM Britney Zavala NP 40 Units at 01/26/18817 ??? insulin lispro (HumaLOG) injection 1-2 Units 1-2 Units subcutaneous Nightly Britney Zavala NP ??? insulin lispro (HumaLOG) injection 1-3 Units 1-3 Units subcutaneous TID with meals Britney Zavala NP 1 Units at 01/26/18 06 ??? insulin lispro (HumaLOG) injection 15 Units 15 Units subcutaneous TID with meals Britney Zavala NP 15 Units at 01/26/18816 ??? lisinopril (PRINIVIL,ZESTRIL) tablet 20 mg 20 mg oral Daily Britney Zavala NP 20 mg at 01/26/18817 ??? oxybutynin (DITROPAN) tablet 5 mg 5 mg oral After dinner Britney Zavala NP 5 mg at 01/25/18 1840 ??? rivaroxaban (XARELTO) tablet 20 mg 20 mg oral Daily with dinner Britney Zavala, CHILD CARE PROVIDER 20 mg at 01/25/181839 ??? rOPINIRole (REQUIP) tablet 5 mg 5 mg oral Nightly Britney Zavala, CHILD CARE PROVIDER 5 mg at 01/25/182041 Objective Vitals: 24hr Min/Max: Temp Min: 36.3 ??C (97.4 ??F) Max: 36.7 ??C (98.1 ??F) Pulse Min: 52 Max: 103 BP Min: 103/61 Max: 128/73 Resp Min: 18 Max: 19 SpO2 Min: 97 % Max: 100 % Most Recent: Vitals: 01/26/18 0800 BP: 123/73 Pulse: 87 Resp: 18 Temp: 36.6 ??C (97.9 ??F) SpO2: 98% Physical Exam Constitutional: She is oriented to person, place, and time. She appears well- developed and well-nourished. No distress. HENT: Head: Normocephalic and atraumatic. Eyes: Pupils are equal, round, and reactive to light. Conjunctivae and EOM are normal. Neck: Normal range of motion. Neck supple. Cardiovascular: Normal rate, regular rhythm and normal heart sounds. Exam reveals no gallop and no friction rub. No murmur heard. Pulmonary/Chest: Effort normal and breath sounds normal. Abdominal: Soft. Obese Musculoskeletal: She exhibits no edema or deformity. Neurological: She is alert and oriented to person, place, and time. She has a normal Vxzdew-Crix-Vvimps Test. Reflex Scores: Tricep reflexes are 1+ on the right side and 1+ on the left side. Bicep reflexes are 1+ on the right side and 1+ on the left side. Brachioradialis reflexes are 1+ on the right side and 1+ on the left side. Patellar reflexes are 1+ on the right side and 1+ on the left side. Achilles reflexes are 1+ on the right side and 1+ on the left side. Skin: Skin is warm and dry. No rash noted. She is not diaphoretic. Psychiatric: Her speech is normal. Neurologic Exam Mental Status Oriented to person, place, and time. Speech: speech is normal Level of consciousness: alert Cranial Nerves CN II Visual rincon full to confrontation. CN III, IV, Pupils are equal, round, and reactive to light. Extraocular motions are normal. CN V Facial sensation intact. CN VII Facial expression full, symmetric. CN VIII CN VIII normal. CN IX, X CN IX normal. CN X normal. CN XI CN XI normal. CN XII CN XII normal. Motor Exam Muscle bulk: normal Overall muscle tone: normal Right arm tone: normal Left arm tone: normal Right arm pronator drift: absent Left arm pronator drift: absent Right leg tone: normal Left leg tone: normal Strength Strength 5/5 except as noted. Right iliopsoas: 3/5 Right quadriceps: 4/5 Right hamstrin/5 Sensory Exam Light touch normal. 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 January 25, 2018 MRI brain without contrast: No evidence of acute intracranial event. I have reviewed the films and will discuss with Dr. Briones. 2. January 25, 2018 CTA head and neck: No hemodynamically significant stenosis or occlusion. Small nodules are seen in the mildly enlarged right lobe of the thyroid associated with calcifications. I have reviewed the films and will discuss with Dr. Briones. 3.January 25, 2018 MRI Cervical Spine without contrast: Mild ccrtm-rzroy-dzby eccentric disc bulgingat C6-C7 causing minimal canal narrowing and mild left foraminal narrowing. Minimal diffuse degenerative disc desiccation. I have reviewed the films and will discuss with Dr. Briones. ASSESSMENTPLAN: The patient presents with weakness and numbness. The MRI of the brain showed no evidence of stroke.The CT angiogram of the head and neck showed no hemodynamically significant stenosis or occlusion.??The MRI of the cervical spine showed disc bulging at C6-C7. Orthopedic spine surgery has been consulted for the bulging disc. Await recommendations. Continue pain management, physical therapy, and occupational therapy. From the neurology standpoint, the patient may be discharged home after orthopedic spine evaluation and recommendations. ?? Please note an incidental finding of a mildly enlarged thyroid with small nodules and calcifications on the CT angiogram of the head and neck. This will be communicated to hopspitalist Dr. Aceves. Chioma Giles NP Cosigned by Bebeto Briones MD at 01/26/2018 2:05 PM CDT * Heaven Tee COTA - 01/26/2018 10:16 AM CDT Occupational Therapy NOTE / SESSION TYPE: DAILY PROGRESS / TREATMENT PATIENT'S NAME: Mohsen Marques AGE / SEX: 62 y.o. / female ROOM: [place] [address] : 1955 DATE: 01/26/18 TIME IN: 10:17 TIME OUT: 10:51 Patient Active Problem List Diagnosis ??? Restless legs syndrome ??? Pain of lower extremity ??? Generalized weakness ??? Dyspnea ??? Unintentional weight loss ??? Acute cystitis without hematuria ??? Nausea and vomiting ??? Essential hypertension ??? Chest pressure ??? Positive blood culture ??? Hyponatremia ??? Diet-controlled diabetes mellitus (CMS/HCC) ??? LUL (obstructive sleep apnea) ??? History of DVT (deep vein thrombosis) ??? History of pulmonary embolism ??? Chronic anticoagulation ??? Restless leg syndrome ??? Rash ??? Cellulitis of breast ??? Pain of foot ??? Arthralgia of ankle ??? Pulmonary embolism (CMS/HCC) ??? Lymphedema of left upper extremity ??? Cancer of overlapping sites of left female breast (CMS/HCC) ??? Acute left-sided low back pain with left-sided sciatica ??? Type 2 diabetes mellitus with neurologic complication, without long-term current use of insulin(CMS/HCC) ??? Essential hypertension ??? Long-term current use of opiate analgesic ??? Lumbosacral spondylosis without myelopathy ??? Radiculopathy, lumbosacral region ??? Spinal stenosis of lumbar region without neurogenic claudication ??? 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 ??? Type 2 diabetes mellitus with hyperglycemia, without long-term current use of insulin (CMS/HCC) ??? Constipation ??? Dysuria ??? Uncontrolled type 2 diabetes mellitus with hyperglycemia, with long-term current use of insulin(CMS/HCC) ??? Allergy to drug ??? 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 Anxiety and depression ??? CVA (cerebral vascular accident) (CMS/HCC) ??? Breast CA (CMS/HCC) Past Medical History: Diagnosis Date ??? Adiposity [...] US SOFT TISSUE ABSCESS DRAIN N/A 10/24/2014 PRECAUTIONS (INCLUDING WEIGHT-BEARING): fall SUBJECTIVE: I feel ok right now THERAPY PAIN: PRE-THERAPY PAIN LEVEL: 0 /10 PAIN LOCATION: NA PAIN INTERVENTION(S): NA POST-THERAPY PAIN LEVEL: 0 /10 PAIN SCALE USED: 0-10 SCALE OBJECTIVE: COGNITION / ORIENTATION: PATIENT ORIENTED TO: Person, Place, Time and Situation FOLLOWING COMMANDS: follows commands without difficulty COMMUNICATION: WFL MOBILITY / TRANSFERS: TRANSFER(S): bedside chair to EOB SBA without a device LIVING SKILLS: LE DRESSING (OVERALL ASSIST LEVEL): modified independence (sock aid) COMPONENTS PERFORMANCE: OVERALL COMPLETED 4 / 4 COMPONENTS WITHOUT PHYSICAL ASSIST TASK: doff slip on shoes and donned both socks LOCATION: seated EOB ADAPTIVE EQUIPMENT: sock aid UE THERAPEUTIC EXERCISES: EXERCISE TYPE: BUE AROM 2# dowel NUMBER OF EXERCISES: 4 NUMBER OF REPETITIONS: 15 ASSIST LEVEL: verbal instructions and hand out LOCATION OF COMPLETION: seated EOB TOLERANCE: good tolerance with rest breaks as needed CAREGIVER PRESENT (YES / NO): no EDUCATION & TRAINING PROVIDED: adaptive equipment education including sock aid, HEP education, role of OT education, compensatory techniques for right visual field deficit education ASSESSMENT: ACTIVITY TOLERANCE / RESPONSE TO OT: PROGRESS TOWARDS GOALS: PLEASE REFER TO CARE PLAN FROM THIS DATE FOR PROGRESS TOWARDS INDIVIDUAL GOALS PLEASE REFER TO MULTI-DISCIPLINARY EDUCATION SECTION FROM THIS DATE FOR ADDITIONAL EDUCATION INFORMATION PLAN: THERAPY PLAN: REHAB POTENTIAL (PROGNOSIS): good OT RECOMMENDATIONS: LOCATION: Home SUPERVISION: Intermittent FOLLOW-UP THERAPY RECOMMENDATIONS: outpatient OT FREQUENCY OF THERAPY: 5 TIMES / WEEK IF THIS IS THE LAST NOTE, CONSIDER THIS THE DISCHARGE SUMMARY VEENA Rooney 01/26/18 10:53 AM Cosigned by Valarie Carrillo OT at 01/26/2018 5:48 PM CDT * Jennifer Walker, RD - 01/25/2018 3:18 PM CDT Nutrition Assessment Nutrition Screen What diet do you follow at home?: diab. carb count Have You Recently Lost Weight Without Trying?: No Poor Oral Intake for Four or More Days Prior to Admission: No Reason for Assessment: Follow Up Encounter Date: 01/25/18 3:18 PM Nutrition Assessment and Plan: Patient is a 62 y.o. female. Admit Dx: NUMBNESS. Admitted on 01/23/2018, current LOS is 0 days. -Pt unavailable, w Therapy. Pt w adequate intakes (100%). 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 PO intakes: 100% x 4 Ensure High Protein- no recorded intakes Nutrition Diagnosis 1: Food and nutrition-related knowledge deficit Related to: Lack of education Evidenced by: Patient interview (Pt reports she is aware of foods w CHO but not how to CHO count) Interventions: [place] diet preferences within the limits of nutrition care order Monitoring and Evaluation: Appetite, Labs, Plan of care, PO intake, Other (comment), Weight changes(edu questions) Goals: Patient/caregiver able to teach back understanding of role of diet in disease process prior to discharge, Adequate nutrition to meet estimated needs by next assessment Nutrition Diagnosis 2: Predicted suboptimal energy intake (and CHO intake when at home)Related to: Pain (abdo discomfort w breakfast)Evidenced by: Patient interview (Pt reports she has abdo pain whenshe eats breakfast in the morning, requested option of nutrition supplement) ?? Interventions: Medical food supplement (Adding Ensure High Protein daily for trial) ?? Monitoring and Evaluation: Appetite, Blood glucoses, Discharge plans, Labs, Plan of care, PO intake, Weight changes, Supplement tolerance ?? Goals: Tolerance of medical food supplement by next assessment, Oral intake to meet 75% estimated nutritional needs by next assessment ?? Estimated needs: [place] State based on . MSJ Total Energy Needs: 2126.4 kcal using Stress Factor: 1.2 Total Protein Estimated Needs (gm): 127.01 Protein Needs Based on g/k.0 Type of Weight Used forEstimated Protein : Current. Total Fluid Estimated Needs: 0 Fluid Needs Based on : 1 ml/kcal (2126 mL). Objective Anthropometrics Weight: 127 kg (280 lb) Admission Weight : 127 kg Weight Change: 0.00 kg (0.00 lbs) IBW/kg (Calculated) : 47.6 kg Height: 154.9 cm (5' 0.98 ) Weight in (lb) to have BMI = 25: 132 BMI (Calculated): 52.9 BMI Classification: BMI > or equal to 40.0 Class III 3 Day I/O Summary 01/23 1900 - 01/25 659 In: 570 [P.O.:570] Out: 200 [Urine:200] Temp: 36.5 ??C (97.7 ??F) Past Medical History: Diagnosis Date ??? Adiposity [...] PE (pulmonary thromboembolism) (CMS/HCC) ??? Sleep apnea Medications and Lab Review: Scheduled Meds: atorvastatin 20 mg oral Nightly cyclobenzaprine 10 mg oral TID exemestane 25 mg oral After dinner insulin glargine 40 Units subcutaneous QAM insulin lispro 1-2 Units subcutaneous Nightly insulin lispro 1-3 Units subcutaneous TID with meals insulin lispro 15 Units subcutaneous TID with meals lisinopril 20 mg oral Daily oxybutynin 5 mg oral After dinner rivaroxaban 20 mg oral Daily with dinner rOPINIRole 5 mg oral Nightly Continuous Infusions: Sodium Date Value Ref Range Status 01/25/2018 136 135 - 145 mmol/L Final Potassium, pl Date Value Ref Range Status 01/25/2018 4.3 3.5 - 5.1 mmol/L Final BUN Date Value Ref Range Status 01/25/2018 21 8 - 24 mg/dL Final Creatinine Date Value Ref Range Status 01/25/2018 0.66 0.60 - 1.30 mg/dL Final Albumin Date Value Ref Range Status 01/24/2018 2.9 (L) 3.2 - 4.8 g/dL Final Calcium Date Value Ref Range Status 01/25/2018 9.4 8.4 - 10.5 mg/dL Final HDL Date Value Ref Range Status 01/24/2018 36 (L) >=40 mg/dL Final Comment: Interpretive Data Ages < or = 19 years Acceptable: >45 mg/dL Borderline low: 40-45 mg/dL Low: <40 mg/dL Ages > or = 20 years Desirable: >or= 60 mg/dL Low: <40 mg/dL Literature References: 1. Expert Panel on Integrated Guidelines for Cardiovascular Health and Risk Reduction in Children and Adolescents. Pediatrics 2011;128:S213 2. NCEP Expert Panel. Circulation 2004;110:227 Current Interpretive Data was last revised on 2017. Lab Results Component Value Date HGBA1C 7.9 (H) 01/23/2018 POC Glucose: Results for MOHSEN MARQUES ( ) as of 01/25/2018 15:25 Ref. Range 01/25/2018 05:56 01/25/2018 09:24 01/25/2018 12:03 Glucose, POC, bld Latest Ref Range: 70 - 199 mg/dL 137 170 134 Nursing Assessment: Orientation: Orientation X4 (person, place, time, situation) Last BM Date: 01/23/18 Tobin Scale Score: 20 Diet Instructions Consistent Carbohydrate diet (60-75 grams of carbohydrates per meal, with 3 meals per day) Sodium Restricted diet (2,000 mg daily, with no added salt) Call [phone] if you have questions about your diet Nutrition Follow-Up : 02/01/[address],LD * Domitila Ceron, OT - 01/25/2018 2:53 PM CDT Occupational Therapy NOTE / SESSION TYPE: DAILY PROGRESS / TREATMENT PATIENT'S NAME: Mohsen Marques AGE / SEX: 62 y.o. / female ROOM: [place] [address] : 1955 DATE: 01/25/18 TIME IN: 1450 TIME OUT: 1516 Patient Active Problem List Diagnosis ??? Restless legs syndrome ??? Pain of lower extremity ??? Generalized weakness ??? Dyspnea ??? Unintentional weight loss ??? Acute cystitis without hematuria ??? Nausea and vomiting ??? Essential hypertension ??? Chest pressure ??? Positive blood culture ??? Hyponatremia ??? Diet-controlled diabetes mellitus (CMS/HCC) ??? LUL (obstructive sleep apnea) ??? History of DVT (deep vein thrombosis) ??? History of pulmonary embolism ??? Chronic anticoagulation ??? Restless leg syndrome ??? Rash ??? Cellulitis of breast ??? Pain of foot ??? Arthralgia of ankle ??? Pulmonary embolism (CMS/HCC) ??? Lymphedema of left upper extremity ??? Cancer of overlapping sites of left female breast (CMS/HCC) ??? Acute left-sided low back pain with left-sided sciatica ??? Type 2 diabetes mellitus with neurologic complication, without long-term current use of insulin(CMS/HCC) ??? Essential hypertension ??? Long-term current use of opiate analgesic ??? Lumbosacral spondylosis without myelopathy ??? Radiculopathy, lumbosacral region ??? Spinal stenosis of lumbar region without neurogenic claudication ??? 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 ??? Type 2 diabetes mellitus with hyperglycemia, without long-term current use of insulin (CMS/HCC) ??? Constipation ??? Dysuria ??? Uncontrolled type 2 diabetes mellitus with hyperglycemia, with long-term current use of insulin(CMS/HCC) ??? Allergy to drug ??? 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 Anxiety and depression ??? CVA (cerebral vascular accident) (CMS/HCC) ??? Breast CA (CMS/HCC) Past Medical History: Diagnosis Date ??? Adiposity [...] US SOFT TISSUE ABSCESS DRAIN N/A 10/24/2014 PRECAUTIONS (INCLUDING WEIGHT-BEARING): fall risk SUBJECTIVE: my days going pretty good, I just haven't gotten any rest THERAPY PAIN: PRE-THERAPY PAIN LEVEL: 5 /10 PAIN LOCATION: neck and back, head PAIN INTERVENTION(S): repositioning, pain medication POST-THERAPY PAIN LEVEL: 5 /10 PAIN SCALE USED: 0-10 SCALE OBJECTIVE: VITAL SIGNS: Vital signs stable throughout evaluation, with no complaints of dizziness, lightheadedness or SOB. COGNITION / ORIENTATION: PATIENT ORIENTED TO: Person, Place, Time and Situation FOLLOWING COMMANDS: 100% COMMUNICATION: pleasant, cooperative MOBILITY / TRANSFERS: BED MOBILITY (COMPONENTS & ASSIST): supine<>sit modified indep TRANSFER(S): sit<>stand indep, modified indep to ambulate ~150' using w/w UE THERAPEUTIC EXERCISES: EXERCISE TYPE: shoulder flex/horizontal abd/protraction/retraction/elevation, elbow flex/ext NUMBER OF EXERCISES: 5 NUMBER OF REPETITIONS: 10 ASSIST LEVEL: sba LOCATION OF COMPLETION: eob TOLERANCE: good ASSESSMENT: ACTIVITY TOLERANCE / RESPONSE TO OT: good PROGRESS TOWARDS GOALS: PLEASE REFER TO CARE PLAN FROM THIS DATE FOR PROGRESS TOWARDS INDIVIDUAL GOALS PLEASE REFER TO MULTI-DISCIPLINARY EDUCATION SECTION FROM THIS DATE FOR ADDITIONAL EDUCATION INFORMATION PLAN: THERAPY PLAN: REHAB POTENTIAL (PROGNOSIS): good OT RECOMMENDATIONS: LOCATION: Home SUPERVISION: None FOLLOW-UP THERAPY RECOMMENDATIONS: none FREQUENCY OF THERAPY: 5 TIMES / WEEK IF THIS IS THE LAST NOTE, CONSIDER THIS THE DISCHARGE SUMMARY Domitila Ceron OT 01/25/18 2:54 PM * Cem De, DO - 01/25/2018 2:47 PM CDT [facility] Hospitalist Service Progress Note Patient Name: Mohsen Marques Patient : 1955 Age/Sex: 62 y.o. female Room/Bed: [place]/[id number] Admission Date/Time: 01/23/2018 4:08 PM Date: 01/25/2018 Time: 2:47 PM Chief Complaint: Right Sided Numbness Hospital Course: Mohsen Marques is a 62 y.o. female admitted to [facility] on 01/23/2018 with a 2 day history of right sided headache, right eye pain and photosensitivity, and right sided numbness/weakness.PMHX s/f CHF, Depression, Thyroid disease, DVT, HTN, restless leg syndrome, and osteoarthritis. ED e valuation showed right sided numbness and weakness. CT Head without contrast showed no acute stroke. Neurology was consulted. Their evaluation showed RUE numbness and RLE weakness. MRI Brain and C-Spine was ordered and pending but since she is claustrophobic and has BMI 52.93 she will need an open MRI which was scheduled for 01/25/2018 at 5pm at [facility]. Subjective HPI: The patient reports that she feels much better. Her strength is still diminished. Her sensation is still diminished, especially int he right forearm and lateral wrist. She reports that her headache, neck pain, and photophobia have all but resolved. She reports no other symptoms or concerns. Review of Systems: Review of Systems Constitutional: Negative for fever, chills, and rigors. Respiratory: Negative for shortness of breath, wheezing, and cough. Cardiovascular: Negative for chest pain, palpitations and orthopnea. Gastrointestinal: Negative for abdominal pain, nausea, vomiting, diarrhea, constipation, color change to stool, and blood in stool. Genitourinary: Negative for dysuria, frequency, urgency, and hematuria. Musculoskeletal: Negative for myalgias. Negative for red, hot, swollen, and/or painful joints. Skin: Negative for rash and abnormal skin lesions. Negative for diffuse itching. Neurological: Negative for dizziness. No speech difficulty. No swallowing difficulty. No gait or balance problems. No other vision problems or blindness. No hearing or smell loss. No facial droop. +Weakness on right, +Numbness in right arm (parts). No tremor. No headache. No photophobia. Endo/Heme/Allergies: Does not bruise/bleed easily. Negative for localized swelling and enlarged lymph nodes/swollen glands. Psychiatric/Behavioral: Negative for depression and suicidal ideas. Allergies: Allergies Allergen Reactions ??? Ceftriaxone Anaphylaxis R ??? Cephalosporins Anaphylaxis ??? Latex Rash ??? Piperacillin-Tazobactam Rash ??? Ketorolac Itching ??? Metoclopramide Other (See comments) Other reaction(s): Hyperactive Restless leg syndrome ??? Oxycodone Vomiting ??? Trazodone Other (See comments) Shaky, restlessness, itching, throat swelling Current Medication List: Scheduled Meds: atorvastatin 20 mg oral Nightly cyclobenzaprine 10 mg oral TID exemestane 25 mg oral After dinner insulin glargine 40 Units subcutaneous QAM insulin lispro 1-2 Units subcutaneous Nightly insulin lispro 1-3 Units subcutaneous TID with meals insulin lispro 15 Units subcutaneous TID with meals lisinopril 20 mg oral Daily oxybutynin 5 mg oral After dinner rivaroxaban 20 mg oral Daily with dinner rOPINIRole 5 mg oral Nightly Continuous Infusions: PRN Meds:dextrose 50% ??? dextrose ??? glucagon ??? HYDROcodone-acetaminophen Objective Vitals: Vitals: 01/24/18 2330 01/25/18 0330 01/25/18 0730 01/25/18 1230 BP: 108/65 105/63 111/73 117/75 BP Location: Right arm Right arm Right arm Right arm Patient Position: Lying Lying Sitting Sitting Pulse: 84 81 73 81 Resp: Temp: 36.7 ??C (98.1 ??F) 36.7 ??C (98.1 ??F) 36.5 ??C (97.7 ??F) TempSrc: Oral Oral Oral Oral SpO2: 97% 98% 99% 100% Weight: Height: Physical Exam: Physical Exam Constitutional: The patient is A/O x3, non-distressed, non-toxic appearing, and well-nourished. HEENT: Head is normocephalic and atraumatic. Hearing is intact to soft voice bilaterally. External ears are normal bilaterally. EOMI. PERRLA. +Photophobia, R>L. Conjunctiva are normal. Nose is without mucosal edema, rhinorrhea, or deformity. Oropharynx is clear. Mucous membranes are moist and without masses. Uvula is midline. Neck: Neck is supple. No stridor or tracheal deviation present. Cardiovascular: HRRR, No murmurs, No rubs, No gallops, No JVD, Distal pulses are intact. No LE edema bilaterally. Pulmonary/Chest: Breath sounds are normal in all lung rincon. No wheezing, rhonchi, or rales. Abdominal: Soft, nontender without guarding or rebound, nondistended, no hernias, no masses or organomegaly, no scars or visible deformities. Musculoskeletal: No inflamed or swollen joints. No deformities of any joints. Lymphatic: No adenopathy anywhere. Neurological: Mental status intact. Speech is without abnormality. CN examination intact. Right C5-6 dermatomal numbness, strength improved to 4/5. RLE weakness, strength 3+/5. No other focal deficits. Cerebellar function intact. No tremor. No dysarthria. No speech deficits. No photophobia. Skin: Skin is warm and dry. No rash, abnormal skin lesions, or wounds are noted. Psychiatric: Mood and affect are appropriate. No sign of hallucinations. Pertinent Diagnostics: I have reviewed the pertinent laboratory, radiographic, and other diagnosticstudies. ASSESSMENT AND PLAN: 1. C5-6 Numbness and Weakness likely secondary to C5-6 Radiculopathy MRI Brain and Cervical Spine ordered. Open MRI to take place at [facility] ~5pm. Currently on Xarelto 20 and Lipitor 20. 2. RLE Weakness likely secondary to CVA. See above. 3. Cervicogenic Migraine-Type Headache on Right - Resolved Cannot take NSAIDs due to Xarelto. Due to possible CVA and timing of examination, will not give triptan medications. Improved with Ice pack. Will need PT outpatient. 4. HTN Controlled on current regimen. 5. DM2 On SSI and Lantus. Cem De DO Internal Medicine - Hospitalist [facility] - Adult Hospitalist Service 01/25/2018 2:47 PM * Paris Vega, PT - 01/25/2018 1:41 PM CDT Physical Therapy PT PROGRESS NOTE Mohsen Montero Shelli 62 y.o. 1955 Past Medical History: Diagnosis Date ??? Adiposity [...] US SOFT TISSUE ABSCESS DRAIN N/A 10/24/2014 Patient Active Problem List Diagnosis ??? Restless legs syndrome ??? Pain of lower extremity ??? Generalized weakness ??? Dyspnea ??? Unintentional weight loss ??? Acute cystitis without hematuria ??? Nausea and vomiting ??? Essential hypertension ??? Chest pressure ??? Positive blood culture ??? Hyponatremia ??? Diet-controlled diabetes mellitus (CMS/HCC) ??? LUL (obstructive sleep apnea) ??? History of DVT (deep vein thrombosis) ??? History of pulmonary embolism ??? Chronic anticoagulation ??? Restless leg syndrome ??? Rash ??? Cellulitis of breast ??? Pain of foot ??? Arthralgia of ankle ??? Pulmonary embolism (CMS/HCC) ??? Lymphedema of left upper extremity ??? Cancer of overlapping sites of left female breast (CMS/HCC) ??? Acute left-sided low back pain with left-sided sciatica ??? Type 2 diabetes mellitus with neurologic complication, without long-term current use of insulin(CMS/HCC) ??? Essential hypertension ??? Long-term current use of opiate analgesic ??? Lumbosacral spondylosis without myelopathy ??? Radiculopathy, lumbosacral region ??? Spinal stenosis of lumbar region without neurogenic claudication ??? 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 ??? Type 2 diabetes mellitus with hyperglycemia, without long-term current use of insulin (CMS/HCC) ??? Constipation ??? Dysuria ??? Uncontrolled type 2 diabetes mellitus with hyperglycemia, with long-term current use of insulin(CMS/HCC) ??? Allergy to drug ??? 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 Anxiety and depression ??? CVA (cerebral vascular accident) (CMS/HCC) ??? Breast CA (CMS/HCC) TIME IN: 13:35 TIME OUT: 14:03 SUBJECTIVE Patient agreeable to physical therapy. States she feels better and S&S have lessened MENTAL STATUS: Alert ORIENTATION: Oriented x 4 PAIN: Pre-therapy pain level: 07/01 (low back pain), 5/10 (head and neck pain) Pain location: low back, head and neck Pain intervention: repositioned and RN informed Post-therapy pain level/response to intervention: 07/01 OBJECTIVE PRECAUTIONS: Guarded gait, decreased andra APPEARANCE/POSTURE: 62 y/o female Sitting at EOB VITAL SIGNS: Resting BP: NT Post-activity BP: 114/74 Resting heart rate: NT Post-activity heart rate: 84 BPM Resting O2 sat: NT Post-activity O2 sat: 96% MOBILITY DOCUMENTATION: Bed Mobility/Transfers: sit to/from stand with SBA Gait: 140 ft x 1 with a w/w with SBA EXERCISES: Performed sitting exercises: All exercises 10 reps with SBA EDUCATION: PT POC RESPONSE TO EDUCATION: verbalizes understanding ASSESSMENT Activity tolerance/response to P.T.: Tolerated w/o complaint Barriers to learning: none Barriers to discharge: Medication managment Patient continues progressing toward previously set goals which remain appropriate at this time. PLAN Patient to be seen for P.T. daily to address previously established deficits and goals. P.T. Recommendations: home with family at discharge If this is the last note, please consider this the discharge summary. * Chioma Giles CHILD CARE PROVIDER - 01/25/2018 1:38 PM CDT Neurology Daily Progress Note Subjective Chief complaint of numbness of right upper extremity. Interval History: The patient is awake and alert, sitting in chair. She reports the numbness in theright upper extremity has improved. Numbness persists in the right hand. She also reports improvement in the headache, neck pain, repetitive eye blinking, and tunnel vision. The CTA of the head and neck results are pending. Patient is scheduled to have the MRI of the brain and cervical spine today at 5:00 p.m.. The patient's home medication list includes Xarelto. The patient reports she has had multiple pulmonary emboli bilaterally and a left DVT within the past three years. She reports she has had coagulation testing performed which was negative. She explains she was told that the pulmonary emboli and DVT are likely related to her antineoplastic medication. Review of Systems Constitution: Negative for chills, diaphoresis, fever, weakness and malaise/fatigue. HENT: Negative for hearing loss and tinnitus. Eyes: Positive for blurred vision, photophobia and visual disturbance. Negative for double vision. Cardiovascular: Negative for chest pain and syncope. Respiratory: Negative for cough and shortness of breath. Skin: Negative for rash. Musculoskeletal: Positive for muscle weakness and neck pain. Negative for stiffness. Gastrointestinal: Negative for bowel incontinence, nausea and vomiting. Genitourinary: Negative for bladder incontinence. Neurological: Positive for focal weakness, headaches, numbness and sensory change. Negative for brief paralysis, difficulty with concentration, disturbances in coordination, dizziness, light-headedness, loss of balance, paresthesias, seizures and tremors. Psychiatric/Behavioral: Negative for altered mental status and memory loss. Current Facility-Administered Medications Medication Dose Route Frequency Provider Last Rate Last Dose ??? atorvastatin (LIPITOR) tablet 20 mg 20 mg oral Nightly Bebeto Briones MD 20 mg at 01/24/182058 ??? cyclobenzaprine (FLEXERIL) tablet 10 mg 10 mg oral TID Bebeto Briones MD 10 mg at 01/25/18936 ??? dextrose 50% (concentrated solution) CONCENTRATED solution 25 g 25 g intravenous Q15 Min PRN Britney Zavala NP ??? dextrose oral liquid liquid 15 g 15 g oral Q15 Min PRN Britney Zavala NP ??? exemestane (AROMASIN) tablet 25 mg 25 mg oral After dinner Britney Zavala NP ??? glucagon injection 1 mg 1 mg intramuscular Q30 Min PRN Britney Zavala NP ??? HYDROcodone-acetaminophen (NORCO) 5-325 mg per tablet 1 tablet 1 tablet oral Q4H PRN Britney Zavala NP 1 tablet at 01/25/18 1217 ??? insulin glargine (LANTUS) injection 40 Units 40 Units subcutaneous QAM Britney Zavala NP 40 Units at 01/25/1826 ??? insulin lispro (HumaLOG) injection 1-2 Units 1-2 Units subcutaneous Nightly Britney Zavala NP ??? insulin lispro (HumaLOG) injection 1-3 Units 1-3 Units subcutaneous TID with meals Britney Zavala NP ??? insulin lispro (HumaLOG) injection 15 Units 15 Units subcutaneous TID with meals Britney Zavala NP 15 Units at 01/25/18 1216 ??? lisinopril (PRINIVIL,ZESTRIL) tablet 20 mg 20 mg oral Daily Britney Zavala NP 20 mg at 01/25/1837 ??? oxybutynin (DITROPAN) tablet 5 mg 5 mg oral After dinner Britney Zavala, CHILD CARE PROVIDER 5 mg at 01/24/18 172 ??? rivaroxaban (XARELTO) tablet 20 mg 20 mg oral Daily with dinner Britney Zavala, CHILD CARE PROVIDER 20 mg at 01/24/18 172 ??? rOPINIRole (REQUIP) tablet 5 mg 5 mg oral Nightly Britney Zavala, CHILD CARE PROVIDER 5 mg at 01/24/182058 Objective Vitals: 24hr Min/Max: Temp Min: 36.5 ??C (97.7 ??F) Max: 36.7 ??C (98.1 ??F) Pulse Min: 73 Max: 96 BP Min: 105/63 Max: 118/76 Resp Min: 18 Max: 22 SpO2 Min: 97 % Max: 100 % Most Recent: Vitals: 01/25/18 1230 BP: 117/75 Pulse: 81 Resp: 18 Temp: 36.5 ??C (97.7 ??F) SpO2: 100% Physical Exam Constitutional: She is oriented to person, place, and time. She appears well- developed and well-nourished. No distress. HENT: Head: Normocephalic and atraumatic. Eyes: Pupils are equal, round, and reactive to light. Conjunctivae and EOM are normal. Neck: Normal range of motion. Neck supple. Cardiovascular: Normal rate, regular rhythm and normal heart sounds. Exam reveals no gallop and no friction rub. No murmur heard. Pulmonary/Chest: Effort normal and breath sounds normal. Abdominal: Soft. Musculoskeletal: She exhibits no edema or deformity. Neurological: She is alert and oriented to person, place, and time. She has an abnormal Uyovnw-Xeny-Kekczb Test (Mild ataxia right upper extremity). Reflex Scores: Tricep reflexes are 1+ on the right side and 1+ on the left side. Bicep reflexes are 1+ on the right side and 1+ on the left side. Brachioradialis reflexes are 1+ on the right side and 1+ on the left side. Patellar reflexes are 1+ on the right side and 1+ on the left side. Achilles reflexes are 1+ on the right side and 1+ on the left side. Skin: Skin is warm and dry. She is not diaphoretic. Psychiatric: Her speech is normal. Neurologic Exam Mental Status Oriented to person, place, and time. Speech: speech is normal Level of consciousness: alert Cranial Nerves CN II Visual rincon full to confrontation. CN III, IV, Pupils are equal, round, and reactive to light. Extraocular motions are normal. CN V Facial sensation intact. CN VII Facial expression full, symmetric. CN VIII CN VIII normal. CN IX, X CN IX normal. CN X normal. CN XI CN XI normal. CN XII CN XII normal. Motor Exam Muscle bulk: normal Overall muscle tone: normal Right arm tone: normal Left arm tone: normal Right arm pronator drift: absent Left arm pronator drift: absent Right leg tone: normal Left leg tone: normal Strength Strength 5/5 except as noted. Right deltoid: 4/5 Right iliopsoas: 3/5 Right quadriceps: 3/5 Right hamstrin/5 Right anterior tibial: 4/5 Right posterior tibial: 4/5 Sensory Exam Reports decreased light touch sensation in the right upper and lower extremities. Gait, Coordination, and Reflexes Gait Gait: (Not assessed) Coordination Finger to nose coordination: abnormal (Mild ataxia right upper extremity) Tremor Resting tremor: absent Intention tremor: absent Action tremor: absent Reflexes Right brachioradialis: 1+ Left brachioradialis: 1+ Right biceps: 1+ Left biceps: 1+ Right triceps: 1+ Left triceps: 1+ Right patellar: 1+ Left patellar: 1+ Right achilles: 1+ Left achilles: 1+ Right an/sqq 89(v)15 sonar system journeyman: 1+ Left an/sqq 89(v)15 sonar system journeyman: 1+ Right plantar: normal Left plantar: normal I/O last 2 completed shifts: In: 470 [P.O.:470] Out: - I/O this shift: In: 480 [P.O.:480] Out: - ASSESSMENTPLAN: The patient presents with weakness and numbness. The CT angiogram of the head and neck are pending. The MRI of the brain and cervical spine will be performed as an open MRI today. Continue pain management. Further recommendations to follow completion of the CT angiogram, MRI of the brain and cervical spine. The patient has a history of pulmonary emboli and deep vein thrombosis and is taking Xarelto. If the patient's MRI of the brain is positivefor stroke, a transesophageal echocardiogram will be requested in order to exclude cardioembolic source of stroke. Chioma Giles NP Cosigned by Bebeto Briones MD at 01/25/2018 2:16 PM CDT * King Cem Amor, DO - 01/24/2018 7:46 PM CDT [facility] Hospitalist Service Progress Note Patient Name: Mohsen Marques Patient : 1955 Age/Sex: 62 y.o. female Room/Bed: [id number]/[id number] Admission Date/Time: 01/23/2018 4:08 PM Date: 01/24/2018 Time: 7:46 PM Chief Complaint: Right Sided Numbness Hospital Course: Mohsen Marques is a 62 y.o. female admitted to [facility] on 01/23/2018 with a 2 day history of right sided headache, right eye pain and photosensitivity, and right sided numbness/weakness.PMHX s/f CHF, Depression, Thyroid disease, DVT, HTN, restless leg syndrome, and osteoarthritis. ED e valuation showed right sided numbness and weakness. CT Head without contrast showed no acute stroke. Neurology was consulted. Their evaluation showed RUE numbness and RLE weakness. MRI Brain and C-Spine was ordered and pending but since she is claustrophobic and has BMI 52.93 she will need an open MRI. Subjective HPI: The patient reports that she feels the same. Her headache is intense, right sided, associated with right photophobia, right neck pain, and nausea. She's never had a headache like this. Right leg is weak. She reports no other symptoms or concerns. Review of Systems: Review of Systems Constitutional: Negative for fever, chills, and rigors. Respiratory: Negative for shortness of breath, wheezing, and cough. Cardiovascular: Negative for chest pain, palpitations and orthopnea. Gastrointestinal: Negative for abdominal pain, nausea, vomiting, diarrhea, constipation, color change to stool, and blood in stool. Genitourinary: Negative for dysuria, frequency, urgency, and hematuria. Musculoskeletal: Negative for myalgias. Negative for red, hot, swollen, and/or painful joints. Skin: Negative for rash and abnormal skin lesions. Negative for diffuse itching. Neurological: Negative for dizziness. See HPI. No speech difficulty. No swallowing difficulty. No gait or balance problems. No other vision problems or blindness. No hearing or smell loss. No facial droop. +Weakness on right, +numbness in right arm (parts). No tremor. Endo/Heme/Allergies: Does not bruise/bleed easily. Negative for localized swelling and enlarged lymph nodes/swollen glands. Psychiatric/Behavioral: Negative for depression and suicidal ideas. Allergies: Allergies Allergen Reactions ??? Ceftriaxone Anaphylaxis R ??? Cephalosporins Anaphylaxis ??? Latex Rash ??? Piperacillin-Tazobactam Rash ??? Ketorolac Itching ??? Metoclopramide Other (See comments) Other reaction(s): Hyperactive Restless leg syndrome ??? Oxycodone Vomiting ??? Trazodone Other (See comments) Shaky, restlessness, itching, throat swelling Current Medication List: Scheduled Meds: atorvastatin 20 mg oral Nightly cyclobenzaprine 10 mg oral TID exemestane 25 mg oral After dinner insulin glargine 40 Units subcutaneous QAM insulin lispro 1-2 Units subcutaneous Nightly insulin lispro 1-3 Units subcutaneous TID with meals insulin lispro 15 Units subcutaneous TID with meals lisinopril 20 mg oral Daily oxybutynin 5 mg oral After dinner rivaroxaban 20 mg oral Daily with dinner rOPINIRole 5 mg oral Nightly Continuous Infusions: PRN Meds:dextrose 50% ??? dextrose ??? glucagon ??? HYDROcodone-acetaminophen Objective Vitals: Vitals: 01/24/18 1030 01/24/18 1115 01/24/18 1157 01/24/18 1515 BP: 141/72 115/75 BP Location: Right arm Right arm Patient Position: Lying Pulse: 80 79 82 Resp: 20 22 Temp: 36.7 ??C (98 ??F) 36.6 ??C (97.9 ??F) TempSrc: Oral Oral SpO2: 100% 100% Weight: Height: 154.9 cm (5' 0.98 ) Physical Exam: Physical Exam Constitutional: The patient is A/O x3, non-distressed, non-toxic appearing, and well-nourished. HEENT: Head is normocephalic and atraumatic. Hearing is intact to soft voice bilaterally. External ears are normal bilaterally. EOMI. PERRLA. +Photophobia, R>L. Conjunctiva are normal. Nose is without mucosal edema, rhinorrhea, or deformity. Oropharynx is clear. Mucous membranes are moist and without masses. Uvula is midline. Neck: Neck is supple. No stridor or tracheal deviation present. Cardiovascular: HRRR, No murmurs, No rubs, No gallops, No JVD, Distal pulses are intact. No LE edema bilaterally. Pulmonary/Chest: Breath sounds are normal in all lung rincon. No wheezing, rhonchi, or rales. Abdominal: Soft, nontender without guarding or rebound, nondistended, no hernias, no masses or organomegaly, no scars or visible deformities. Musculoskeletal: No inflamed or swollen joints. No deformities of any joints. Lymphatic: No adenopathy anywhere. Neurological: Mental status intact. Speech is without abnormality. +Photophobia R>L. CN examination intact. Right C5-6 dermatomal numbness and weakness. RLE weakness. No other focal deficits. Cerebellar function intact. No tremor. No dysarthria. No speech deficits. Skin: Skin is warm and dry. No rash, abnormal skin lesions, or wounds are noted. Psychiatric: Mood and affect are appropriate. No sign of hallucinations. Pertinent Diagnostics: I have reviewed the pertinent laboratory, radiographic, and other diagnosticstudies. ASSESSMENT AND PLAN: 1. C5-6 Numbness and Weakness likely secondary to C5-6 Radiculopathy MRI Cervical Spine ordered. Would not allow me to perform Spurling's Test. Will need an open MRI and will arrange for it tomorrow. Possibly underlying CVA per Neuro. Will arrange for MRI Brain tomorrow as well. Currently on Xarelto 20 and Lipitor 20. 2. RLE Weakness See above. 3. Cervicogenic Migraine-Type Headache on Right Cannot take NSAIDs due to Xarelto. Due to possible CVA and timing of examination, will not give triptan medications. Will give Ice Pack for neck pain and consult PT/OT. 4. HTN Controlled on current regimen. 5. DM2 On SSI and Lantus. Cem De DO Internal Medicine - Hospitalist [facility] - Adult Hospitalist Service 01/24/2018 7:46 PM * Valarie Carrillo, OT - 01/24/2018 4:09 PM CDT Occupational Therapy NOTE / SESSION TYPE: EVAUATION PATIENT'S NAME: Mohsen Marques AGE / SEX: 62 y.o. / female ROOM: [id number] : 1955 DATE: 01/24/18 TIME IN: 16:09 TIME OUT: 16:40 ORDER ACKNOWLEDGED (YES OR NO): YES Patient Active Problem List Diagnosis ??? Restless legs syndrome ??? Pain of lower extremity ??? Generalized weakness ??? Dyspnea ??? Unintentional weight loss ??? Acute cystitis without hematuria ??? Nausea and vomiting ??? Essential hypertension ??? Chest pressure ??? Positive blood culture ??? Hyponatremia ??? Diet-controlled diabetes mellitus (CMS/HCC) ??? LUL (obstructive sleep apnea) ??? History of DVT (deep vein thrombosis) ??? History of pulmonary embolism ??? Chronic anticoagulation ??? Restless leg syndrome ??? Rash ??? Cellulitis of breast ??? Pain of foot ??? Arthralgia of ankle ??? Pulmonary embolism (CMS/HCC) ??? Lymphedema of left upper extremity ??? Cancer of overlapping sites of left female breast (CMS/HCC) ??? Acute left-sided low back pain with left-sided sciatica ??? Type 2 diabetes mellitus with neurologic complication, without long-term current use of insulin(CMS/HCC) ??? Essential hypertension ??? Long-term current use of opiate analgesic ??? Lumbosacral spondylosis without myelopathy ??? Radiculopathy, lumbosacral region ??? Spinal stenosis of lumbar region without neurogenic claudication ??? 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 ??? Type 2 diabetes mellitus with hyperglycemia, without long-term current use of insulin (CMS/HCC) ??? Constipation ??? Dysuria ??? Uncontrolled type 2 diabetes mellitus with hyperglycemia, with long-term current use of insulin(CMS/HCC) ??? Allergy to drug ??? 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 Anxiety and depression ??? CVA (cerebral vascular accident) (CMS/HCC) ??? Breast CA (CMS/HCC) Past Medical History: Diagnosis Date ??? Adiposity [...] US SOFT TISSUE ABSCESS DRAIN N/A 10/24/2014 ADDITIONAL SIGNIFICANT MEDICAL INFORMATION: ADMITTED WITH RIGHT ARM AND HAND NUMBNESS, RIGHT EYE TWITCHING AND TINGLING PRECAUTIONS (INCLUDING WEIGHT-BEARING): FALL CAREGIVER PRESENT (YES OR NO): NO VITAL SIGNS: HEART RATE AT REST: 95 HEART RATE WITH ACTIVITY: 76 O2 SATS AT REST: 99 % O2 SATS WITH ACTIVITY: 99 % OXYGEN LPM: ROOM AIR THERAPY PAIN: PRE-THERAPY PAIN LEVEL: 7 /10 PAIN LOCATION: HEAK PAIN INTERVENTION(S): NOT ABLE TO HAVE MEDS DUE TO PENDING TEST POST-THERAPY PAIN LEVEL: 6 /10 PAIN SCALE USED: 0-10 SCALE PRIOR FUNCTION: LIVES WITH: DAUGHTER WHO WORKS OTHER SOCIAL SUPPORTS / ASSISTANCE AVAILABLE: DAUGHTER LIVING ENVIRONMENT (TYPE OF RESIDENCE / ENTRANCE ACCESSIBILITY): 1-story house/ trailer WITH 2 STEPS TO ENTER BATHROOM LOCATION / SETUP / EQUIPMENT: SHOWER/TUB COMBO WITH GRAB BAR WITH SHOWER CHAIR PRIOR LEVEL OF FUNCTION: INDEP. IN BATHING AND DRESS, SUPERVISION FOR SHOWER TRANSFER AND OCCASIONAL ASSIST WITH LE DRESS, INDEP. IN SIMPLE MEAL PREP, DTR DOES MEAL PREP, LAUNDRY, BILL PAY AND MEDS AND SHOPPING AND CLEANING COMMUNITY ACCESS / DRIVING: DRIVEN BY OTHERS EQUIPMENT OWNED: SHOWER CHAIR, CANE AND WHEELED WALKER EQUIPMENT USED: front wheeled walker OR CANT VOCATIONAL: disabled SOCIAL ROLES / HOBBIES: LIKES TO READ, DO CRAFTS, GARDENING, SPEND TIME WITH GRAND CHILDREN, PLAY ON COMPUTER PATIENT / FAMILY GOAL(S): TO GET HOME TO GRAND BABIES COGNITION / ORIENTATION: PATIENT ORIENTED TO: Person, Place, Time and Situation FOLLOWING COMMANDS: WFL COMMUNICATION: WFL VISION: PATIENT UNABLE TO FULLY OPEN RIGHT EYE, AND HAS DECREASED PERIPHERAL VISION TOWARD THE RIGHT COGNITIVE SCREENING: (Short Blessed Test) Answer Max Error Error Score Weight Sub-Score 1. What year is it now? 1 4 0 2. What month is it now? Repeat this phrase after me and remember it. Noe Poole [address] [place] [address]. Number of trialto [id number] 1 3 0 3. About what time is it without looking at your watch (within 1 hour?) Response: 16:30 Actual Time: 16:35 1 3 0 4. Count backwards from 20 to 1. Genaro correctly sequenced #'s []20 []19 []18 [] 17 []16 []15 [] 14 []13 []12 []11 [] 10 []9 []8 [] 7 [] 6 []5 []4 []3 []2 []1 2 (a) 2 0 5. Say the months of the year in reverse. [] D [] N []O [] S [] A []JL []JU []MY []A []M []F [] J 2 (a) 2 2 6. Repeat the name and address I asked you to remember. Noe Poole [address] [facility]. [] Noe [] Virgilio []42 [][facility] [][place] 5 (b) 2 0 A weighted error score of 9 or greater indicates a need for further assessment. Total Weighted Error Score = 2 (a) Scoring 0 = No errors, 1 = 1 error, 2 = 2 or more errors, (b) An answer of either [facility] or [facility] is acceptable. UE ROM / STRENGTH / COORDINATION: (A)ROM - RIGHT: WNL THROUGHOUT STRENGTH - RIGHT: 3+/5 EXCEPT WRIST 4-/5 (A)ROM - LEFT: WNL THROUGHOUT STRENGTH - LEFT: 4+/5 EXCEPT SHOULDER 4_/5 HAND DOMINANCE: Right TAX FORM PREPARER STRENGTH (RIGHT): GOOD TAX FORM PREPARER STRENGTH (LEFT): GOOD RIGHT COORDINATION: MIN SPEED AND SERIAL OPPOSITION AND [id number] LEFT COORDINATION: WNL SERIAL OPPOSITION AND [id number] BALANCE: STATIC SITTING: GOOD SUPPORTED AT EOB DYNAMIC SITTING: GOOD SUPPORTED STATIC STANDING: GOOD DYNAMIC STANDING: GOOD- MOBILITY / TRANSFERS: BED MOBILITY (COMPONENTS & ASSIST): MODIFIED INDEP. TRANSFER(S): SBA TO TRANSFER TO AND FROM TOILET WITHOUT A DEVIJCE LIVING SKILLS: UE DRESSING (OVERALL ASSIST LEVEL): stand by assistance/supervision COMPONENTS PERFORMANCE: OVERALL COMPLETED 8 / 8 COMPONENTS WITHOUT PHYSICAL ASSIST TASK: DONNED AND DOFFED PULLOVER SHIRT LOCATION: EOB LE DRESSING (OVERALL ASSIST LEVEL): minimal assistance (subject 75% or greater) COMPONENTS PERFORMANCE: OVERALL COMPLETED 8 / 10 COMPONENTS WITHOUT PHYSICAL ASSIST TASK: DONNED AND DOFFED PANTS AND LEFT FOOTIE WITH SBA, ASSIST TO RIGHT FOOTIE LOCATION: EOB AND STANDING THERAPY PLAN: REHAB POTENTIAL (PROGNOSIS): good PROBLEM LIST: PATIENT WITH PAIN AND DECREASED NECK ROM, DECREASED RUE STRENGTH AND DECREASED RIGHT FACIAL EYE STRENGTH ALONG WITH DECREASED PERIPHERAL VISION TO THE RIGHT SIDE OT RECOMMENDATIONS: LOCATION: Home SUPERVISION: Intermittent FOLLOW-UP THERAPY RECOMMENDATIONS: OUTPATIENT OT BARRIERS TO DISCHARGE: Pain FREQUENCY OF THERAPY: 5 TIMES / WEEK INTERVENTIONS / EDUCATION NEEDS: EDUCATION HEP FOR UE STRENGTH AND NECK ROM, AND OCULAR EXERCIES, PERCEPTUAL RETRAINING, COMPENSATORY ADL EDUCATION PROVIDED: ROLE OF OT AND DISCHRGE RECOMMENDATIONS SHORT TERM GOALS: Multi-Disciplinary Problems (from Occupational Therapy) Active Problems Problem: Dressings Lower Extremities Start Date: 01/24/18 Goal Start Date End Date STG - Patient to complete lower body dressing 01/24/18 -- Goal Details: MODIFIED INDEP. X1 Problem: OT Misc Start Date: 01/24/18 Goal Start Date End Date [facility] 1 01/24/18 -- Goal Details: PATIENT WILLCOMPETE UE STRENGTHENING EX. INDEP. WITH HANDOUT X1 Goal Start Date End Date [facility] 2 01/24/18 -- Goal Details: PATIENT WILL COMPLETE OCULAR MOTOR EXERCISES INDEP. WITH HANDOUT X1 Goal Start Date End Date [facility] 3 01/24/18 -- Goal Details: PATIENT WILL COMPLETE NECK ROM EXERICISES TO PAIN TOLERANCE X1 Goal Start Date End Date [facility] 4 01/24/18 -- Goal Details: PATIENT WILL COMPENSATE FOR RIGHT VISUAL FIELD DEFECIT WITHOUT CUES X1 IF THIS IS THE LAST NOTE, CONSIDER THIS THE DISCHARGE SUMMARY Valarie Carrillo, OT 01/24/18 4:09 PM * Vince Almaguer, PT - 01/24/2018 3:30 PM CDT Physical Therapy INITIAL EVALUATION PATIENT'S NAME:Mohsen Marques :1955 AGE:62 y.o. TIME IN:1531 TIME OUT:1554 CURRENT DIAGNOSIS AND HOSPITAL COURSE: Admitted with chief complaint of lower back pain and right side numbness. Also c/o headache, eye pain, photosensitivity. Patient Active Problem List Diagnosis ??? Restless legs syndrome ??? Pain of lower extremity ??? Generalized weakness ??? Dyspnea ??? Unintentional weight loss ??? Acute cystitis without hematuria ??? Nausea and vomiting ??? Essential hypertension ??? Chest pressure ??? Positive blood culture ??? Hyponatremia ??? Diet-controlled diabetes mellitus (CMS/HCC) ??? LUL (obstructive sleep apnea) ??? History of DVT (deep vein thrombosis) ??? History of pulmonary embolism ??? Chronic anticoagulation ??? Restless leg syndrome ??? Rash ??? Cellulitis of breast ??? Pain of foot ??? Arthralgia of ankle ??? Pulmonary embolism (CMS/HCC) ??? Lymphedema of left upper extremity ??? Cancer of overlapping sites of left female breast (CMS/HCC) ??? Acute left-sided low back pain with left-sided sciatica ??? Type 2 diabetes mellitus with neurologic complication, without long-term current use of insulin(CMS/HCC) ??? Essential hypertension ??? Long-term current use of opiate analgesic ??? Lumbosacral spondylosis without myelopathy ??? Radiculopathy, lumbosacral region ??? Spinal stenosis of lumbar region without neurogenic claudication ??? 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 ??? Type 2 diabetes mellitus with hyperglycemia, without long-term current use of insulin (CMS/HCC) ??? Constipation ??? Dysuria ??? Uncontrolled type 2 diabetes mellitus with hyperglycemia, with long-term current use of insulin(CMS/HCC) ??? Allergy to drug ??? 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 Anxiety and depression ??? CVA (cerebral vascular accident) (CMS/HCC) ??? Breast CA (CMS/HCC) Past Medical History: Diagnosis Date ??? 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 Ambindep with cane or wh walker as needed EQUIPMENT OWNED: wh walker, cane EQUIPMENT USED: wh walker, cane SOCIAL SUPPORTS: daughter PATIENT/FAMILY GOAL: to feel better MENTAL STATUS: Alert ORIENTATION: Oriented x 4 OBJECTIVE PRECAUTIONS: fall risk APPEARANCE/POSTURE: patient standing VITAL SIGNS: Resting BP: 115/75 Post-activity heart rate: 81 bpm Post-activity O2 sat: 100% PAIN: Pre-therapy pain level: 10/31. Patient reports having problems with right arm feeling numb, and feeling like I'm on a ship , describes photosensitivity, states right eye doesn't want to stay open. Pain location: head and neck Pain intervention: pain medication given Post-therapy pain level/response to intervention: 10/31 LE ASSESSMENTS: Right LE ROM: WFl Left LE ROM: WFL Right LE strength: 3+/5 Left LE strength: 3+/5 MOBILITY: Bed mobility: sit to supine cg assist Transfers: sit to/from stand cg assist Ambulation: Distance: 30' Assistive device: no assistive device Level of assist: contact guard/SBA Deviations: decreased step length marilyn, slow gait due to pain Balance/Special Tests: Static sitting balance: good Dynamic sitting balance: good- Static standing balance: good- Dynamic standing balance: good- EDUCATION: safety with transfer RESPONSE TO EDUCATION: needs reinforcement ASSESSMENT PROBLEM LIST: decreased indep with transfers, bed mobility and ambulation BARRIERS TO LEARNING: Visual and pain BARRIERS TO DISCHARGE: Decreased endurance and Lower extremity weakness REHAB POTENTIAL/PROGNOSIS: good PLAN RECOMMENDATIONS: home with 24 hour assist and home health PT TREATMENT PLAN/INTERVENTIONS: acute PT to address deficit areas FREQUENCY: 3-5x/day EQUIPMENT RECOMMENDATIONS: to be determined Refer to multi-disciplinary care plan section for PT specific goals. If this is the last note, please consider this the discharge summary. * Keli Funes, RN - 01/24/2018 2:52 PM CDT CM/SW Assessment Last Documented CM/SW Assessment (most recent) SW/CM Admission Assessment - 01/24/18 1431 Referral Data Referral Source Recovery Room Nurse Referral Reason Discharge Planning Patient Information Primary Caregiver Self Support System Children;Family members Legal Information Advance Directive Patient does not have advance directive;Patient would like information Call placed with Pastoral Care to provide patient with information Prior Level of Functioning Durable Medical Equipment Cane (single prong);Walker (wheeled);Diabetic Supplies;CPAP/Bi-PAP LivingArrangement House;Lives with someone Dressing Needs Assistance (Comment) Daughter assists with care Bathing/Grooming Needs assistance (Comment) Daughter assists with care Grocery Shopping Needs Assistance (Comment) Daughter assists with care Meal preparation Needs Assistance (Comment) Daughter assists with care Housework Needs Assistance (Comment) Daughter assists with care Medication management Needs Assistance (Comment) Daughter assists with care Income Information Income Source SSD/SSI Income/Expense Information Income meets expenses Potential Discharge Needs Anticipated discharge level of care Return Home Communications LYON letter given? Yes Given, explained, understanding verbalized. original placed in chart. LYON letter given on: 01/24/18 LYON Letter Given at: 1150 Additional assessment Additional comments: Patient lives at home with her daughter. She receives Social Security disability and is able to meet her needs, financially, including medications. She does not have an Advance Directive and requested information. Call placed to Pastoral Care to provide requested information topatient. Her daughter is her dowel pin worker, through the [facility] . Her daughter assist with dressing, grooming, cooking, cleaning and transportation. She has a wheeled walker, cane, diabeticsupplies, and CPAP at home. Her goal is to return home at time of discharge. Discharge Planning Type of Residence: Private residence Living Arrangements: Children Support Systems: Family members, Children Assistance Needed: None at this time. Daughter is dowel pin worker. Home Care Services: No Patient expects to be discharged to:: Private residence Does the patient need discharge transport arranged?: No Keli Funes Case Management 01/24/2018 2:52 PM * Yeni Jamil SLP - 01/24/2018 12:13 PM CDT Speech Language/Pathology Speech/Language Pathology Initial/Discharge Assessment Patient Name: Mohsen Marques Today's Date: 01/24/2018 Problem List Patient Active Problem List Diagnosis ??? Restless legs syndrome ??? Pain of lower extremity ??? Generalized weakness ??? Dyspnea ??? Unintentional weight loss ??? Acute cystitis without hematuria ??? Nausea and vomiting ??? Essential hypertension ??? Chest pressure ??? Positive blood culture ??? Hyponatremia ??? Diet-controlled diabetes mellitus (CMS/HCC) ??? LUL (obstructive sleep apnea) ??? History of DVT (deep vein thrombosis) ??? History of pulmonary embolism ??? Chronic anticoagulation ??? Restless leg syndrome ??? Rash ??? Cellulitis of breast ??? Pain of foot ??? Arthralgia of ankle ??? Pulmonary embolism (CMS/HCC) ??? Lymphedema of left upper extremity ??? Cancer of overlapping sites of left female breast (CMS/HCC) ??? Acute left-sided low back pain with left-sided sciatica ??? Type 2 diabetes mellitus with neurologic complication, without long-term current use of insulin(CMS/HCC) ??? Essential hypertension ??? Long-term current use of opiate analgesic ??? Lumbosacral spondylosis without myelopathy ??? Radiculopathy, lumbosacral region ??? Spinal stenosis of lumbar region without neurogenic claudication ??? 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 ??? Type 2 diabetes mellitus with hyperglycemia, without long-term current use of insulin (CMS/HCC) ??? Constipation ??? Dysuria ??? Uncontrolled type 2 diabetes mellitus with hyperglycemia, with long-term current use of insulin(CMS/HCC) ??? Allergy to drug ??? 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 Anxiety and depression ??? CVA (cerebral vascular accident) (CMS/HCC) ??? Breast CA (CMS/HCC) Past Medical History Past Medical History: Diagnosis [...] thromboembolism) (CMS/HCC) ??? Sleep apnea Past Surgical History Past [...] US SOFT TISSUE ABSCESS DRAIN N/A 10/24/2014 Oral/Motor Assessment Oral/Motor Labial ROM: Within Functional Limits Labial Symmetry: Within Functional Limits Lingual ROM: Within Functional Limits Lingual Symmetry: Within Functional Limits Facial ROM: Within Functional Limits Facial Symmetry: Within Functional Limits Comprehension Comprehension Conversation: Within Functional Limits Expression Verbal Expression Primary Mode of Expression: Verbal Conversation: Within Functional Limits Perseveration: Not present Higher Cognitive Functioning Higher Level Cognition/Executive Function Working Attention: Within Functional Limits Memory: Within Funtional Limits Problem Solving: Within Functional Limits Pain Pain Assessment Pain Assessment: 0-10 Pain Score: 7 Pain Location: Head Pain Orientation: Posterior Pain Interventions: Medication (See MAR) Assessment/Recommendation Speech Therapy Prognosis Services: No skilled ICE CREAM DISPENSER services at this time Prognosis: Good Prognosis Considerations: Previous level of function Recommendations ICE CREAM DISPENSER Recommendation (Add'l Services): Home with family ICE CREAM DISPENSER Frequency of Services: One-time visit, If this is the last documentation prior to discharge, please consider it discharge summary and patient discharged from this service Speech Evaluation Complete: Yes Goals Multi-Disciplinary Problems (from Speech Therapy) Active Problems Not on file Yeni Jamil CCC-ICE CREAM DISPENSER * Jennifer Walker RD - 01/24/2018 12:05 PM CDT Nutrition Assessment Nutrition Screen What diet do you follow at home?: diab. carb count Have You Recently Lost Weight Without Trying?: No Poor Oral Intake for Four or More Days Prior to Admission: No Reason for Assessment: Initial Nutrition Assessment and Consult/Referral- Stroke Protocol Encounter Date: 01/24/18 12:09 PM Nutrition Assessment and Plan: Patient is a 62 y.o. female. Admit Dx: NUMBNESS. Admitted on 01/23/2018, current LOS is 0 days. -Pt reports her appetite is so-so. Pt reports she forces herself to eat breakfast in the mornings since she started insulin but she has abdo pain and doesn't like it, she requested nutrition supplement w breakfast- adding Ensure high protein. -Pt reports 10 lbs Wt gain since starting insulin in October -Pt agreed to add 2 gm Na+ diet for CHF -Provided Consistent CHO diet edu handout & low Na+ diet edu handout. Pt aware of some foods w CHO but not how to CHO count. reivewed foods w CHO, label reading, how to CHO count. Discussed limiting high Na+ foods and avoiding added salt. Left RD contact info and outpatient RD referral info Current diet order: Adult Diet Special; Consistent Carb 2000 mario Pt intake is adequate. PO intakes: 100% x 1 Nutrition Diagnosis 1: Food and nutrition-related knowledge deficit Related to: Lack of education Evidenced by: Patient interview (Pt reports she is aware of foods w CHO but not how to CHO count) Interventions: Education, nutrition, Modify diet (Provided Consistent CHO diet edu & provided brief review of low Na+ diet. Adding 2 gm Na+ diet for CHF. ) Monitoring and Evaluation: Other (comment), Blood glucoses, Labs, Electrolyte changes (edu questions) Goals: Patient/caregiver able to teach back understanding of role of diet in disease process prior to discharge Nutrition Diagnosis 2: Predicted suboptimal energy intake (and CHO intake when at home)Related to: Pain (abdo discomfort w breakfast)Evidenced by: Patient interview (Pt reports she has abdo pain whenshe eats breakfast in the morning, requested option of nutrition supplement) Interventions: Medical food supplement (Adding Ensure High Protein daily for trial) Monitoring and Evaluation: Appetite, Blood glucoses, Discharge plans, Labs, Plan of care, PO intake, Weight changes, Supplement tolerance Goals: Tolerance of medical food supplement by next assessment, Oral intake to meet 75% estimated nutritional needs by next assessment Estimated needs: MSJ Total Energy Needs: 2126.4 kcal using Stress Factor: 1.2 Total Protein Estimated Needs (gm): 127.01 Protein Needs Based on g/k.0 Type of Weight Used forEstimated Protein : Current. Total Fluid Estimated Needs: 0 Fluid Needs Based on : 1 ml/kcal (2126 mL). Objective Anthropometrics Weight: 127 kg (280 lb) Admission Weight : 127 kg Weight Change: 0.00 kg (0.00 lbs) IBW/kg (Calculated) : 47.6 kg Height: 154.9 cm (5' 0.98 ) Weight in (lb) to have BMI = 25: 132 BMI (Calculated): 52.9 BMI Classification: BMI > or equal to 40.0 Class III 3 Day I/O Summary 01/22 1900 - 01/24 0659 In: 100 [P.O.:100] Out: 200 [Urine:200] Temp: 36.7 ??C (98 ??F) Past Medical History: Diagnosis Date ??? Adiposity [...] PE (pulmonary thromboembolism) (CMS/HCC) ??? Sleep apnea Medications and Lab Review: Scheduled Meds: exemestane 25 mg oral After dinner insulin glargine 40 Units subcutaneous QAM insulin lispro 1-2 Units subcutaneous Nightly insulin lispro 1-3 Units subcutaneous TID with meals insulin lispro 15 Units subcutaneous TID with meals lisinopril 20 mg oral Daily oxybutynin 5 mg oral After dinner rivaroxaban 20 mg oral Daily with dinner rOPINIRole 5 mg oral Nightly Continuous Infusions: Sodium Date Value Ref Range Status 01/24/2018 131 (L) 135 - 145 mmol/L Final Potassium, pl Date Value Ref Range Status 01/24/2018 3.8 3.5 - 5.1 mmol/L Final BUN Date Value Ref Range Status 01/24/2018 14 8 - 24 mg/dL Final Creatinine Date Value Ref Range Status 01/24/2018 0.59 (L) 0.60 - 1.30 mg/dL Final Albumin Date Value Ref Range Status 01/24/2018 2.9 (L) 3.2 - 4.8 g/dL Final Calcium Date Value Ref Range Status 01/24/2018 9.1 8.4 - 10.5 mg/dL Final HDL Date Value Ref Range Status 01/24/2018 36 (L) >=40 mg/dL Final Comment: Interpretive Data Ages < or = 19 years Acceptable: >45 mg/dL Borderline low: 40-45 mg/dL Low: <40 mg/dL Ages > or = 20 years Desirable: >or= 60 mg/dL Low: <40 mg/dL Literature References: 1. Expert Panel on Integrated Guidelines for Cardiovascular Health and Risk Reduction in Children and Adolescents. Pediatrics 2011;128:S213 2. NCEP Expert Panel. Circulation 2004;110:227 Current Interpretive Data was last revised on 2017. Lab Results Component Value Date HGBA1C 9.2 (H) 10/27/2017 POC Glucose: Results for MOHSEN MARQUES ( ) as of 01/24/2018 12:07 Ref. Range 01/24/2018 06:19 01/24/2018 06:29 01/24/2018 08:16 01/24/2018 11:19 Glucose, POC, bld Latest Ref Range: 70 - 199 mg/dL 123 203 (H) 141 Nursing Assessment: Orientation: Orientation X4 (person, place, time, situation) Last BM Date: 01/23/18 Tobin Scale Score: 20 Diet Instructions Consistent Carbohydrate diet (60-75 grams of carbohydrates per meal, with 3 meals per day) Sodium Restricted diet (2,000 mg daily, with no added salt) Call [phone] if you have questions about your diet Nutrition Follow-Up : 01/26/[address],LD documented in this encounter H&P Notes * Britney Zavala, CHILD CARE PROVIDER - 01/23/2018 11:06 PM CDT History and Physical DATE OF SERVICE: 01/24/2018 4:31 AM Primary Care Physician: Justen Gale MD [phone] SUBJECTIVE: Patient is a 62 y.o. female with a PMHx significant for CHF, Depression, Thyroid disease, DVT, HTN, restless leg syndrome, and osteoarthritis. Patient presents to ED with chief complaint of lower back pain and right side numbness HPI: Patient was on her way to pain management appointment. She reported a headache, eye pain, photosensitivity, right sided numbness. Patient stated that here pain originally began 2 days ago. She had arrived at her pain management appointment and sent to the ER for an evaluation. Patient denies chest pain and SOB. Past Medical History: Diagnosis Date ??? Adiposity [...] US SOFT TISSUE ABSCESS DRAIN N/A 10/24/2014 Prescriptions Prior to Admission Medication Sig Dispense Refill Last Dose ??? exemestane (AROMASIN) 25 mg tablet TAKE 1 TABLET BY MOUTH DAILY AFTER A MEAL 30 tablet 0 01/22/2018 at Unknown time ??? HYDROcodone-acetaminophen (NORCO) 5-325 mg per tablet Take by mouth. 01/23/2018 at Unknown time ??? insulin glargine (LANTUS) 100 unit/mL injection Inject 50 Units under the skin 2 (two) times a day. 01/23/2018 at Unknown time ??? insulin lispro (HumaLOG) 100 unit/mL injection Inject 15 Units under the skin 3 (three) times aday with meals. (Patient taking differently: Inject 18 Units under the skin 3 (three) times a day with meals. ) 10 mL 0 01/23/2018 at Unknown time ??? lisinopril (PRINIVIL,ZESTRIL) 20 mg tablet Take 20 mg by mouth. 01/23/2018 at Unknown time ??? oxybutynin (DITROPAN) 5 mg tablet take 1 tablet by oral route every day 0 0 01/22/2018 at Unknown time ??? polyethylene glycol (MIRALAX) 17 gram/dose powder Mix 1 scoop (17 g) in 8 oz of water and drinkdaily. (Patient not taking: Reported on 01/16/2018 ) 527 g 0 Not Taking ??? rivaroxaban (XARELTO) 20 mg tablet Take 20 mg by mouth. 01/22/2018 at Unknown time ??? rOPINIRole (REQUIP) 5 mg tablet Take 5 mg by mouth. 01/22/2018 at Unknown time Allergies Allergen Reactions ??? Ceftriaxone Anaphylaxis R ??? Cephalosporins Anaphylaxis ??? Latex Rash ??? Piperacillin-Tazobactam Rash ??? Ketorolac Itching ??? Metoclopramide Other (See comments) Other reaction(s): Hyperactive Restless leg syndrome ??? Oxycodone Vomiting ??? Trazodone Other (See comments) Shaky, restlessness, itching, throat swelling Social History Substance Use Topics ??? Smoking status: Former Smoker ??? Smokeless tobacco: Never Used Comment: remote tobacco use ??? Alcohol use No Family History Problem Relation Age of [...] Systems: Review of Systems Constitutional: Negative for activity change, appetite change, chills, fatigue and fever. HENT: Negative for congestion, ear pain, facial swelling, sinus pain, sinus pressure, sneezing, sore throat and trouble swallowing. Eyes: Positive for photophobia and pain. Negative for discharge, redness and itching. Respiratory: Positive for cough. Negative for choking, chest tightness, shortness of breath and wheezing. Cardiovascular: Negative for chest pain, palpitations and leg swelling. Gastrointestinal: Negative for abdominal distention, abdominal pain, constipation, diarrhea, nauseaand vomiting. Endocrine: Negative for cold intolerance and heat intolerance. Genitourinary: Negative for difficulty urinating, dysuria, flank pain, frequency, hematuria and urgency. Musculoskeletal: Positive for back pain. Negative for neck pain and neck stiffness. Skin: Negative for color change, pallor, rash and wound. Neurological: Positive for headaches. Negative for dizziness, tremors, syncope, facial asymmetry, speech difficulty and weakness. Hematological: Negative for adenopathy. Does not bruise/bleed easily. Psychiatric/Behavioral: Negative for agitation, behavioral problems and confusion. OBJECTIVE: Vitals: Arrival Vitals Temp 01/23/18 1650 36.5 ??C (97.7 ??F) Pulse 01/23/18 1635 91 Resp 01/23/18 1635 16 BP 01/23/18 1641 132/92 SpO2 01/23/18 1640 100 % Temp src 01/23/18 1915 Oral Heart Rate Source -- Patient Position -- BP Location 01/23/18 191 Right arm FiO2 (%) -- 24hr Min/Max: Temp Min: 36.5 ??C (97.7 ??F) Max: 37.1 ??C (98.8 ??F) Pulse Min: 82 Max: 95 BP Min: 105/60 Max: 132/92 Resp Min: 11 Max: 25 SpO2 Min: 97 % Max: 100 % Most Recent : Vitals: 01/23/18 1805 01/23/18 1900 01/23/18 1915 01/23/18 2315 BP: 126/84 129/84 105/60 BP Location: Right arm Right arm Pulse: 90 89 88 82 Resp: 14 18 Temp: 37.1 ??C (98.8 ??F) 36.7 ??C (98.1 ??F) TempSrc: Oral Oral SpO2: 100% 100% 100% 97% Weight: 127 kg (280 lb) Height: 154.9 cm (5' 0.98 ) No intake/output data recorded. I/O this shift: In: 100 [P.O.:100] Out: 200 [Urine:200] Physical exam: Physical Exam Constitutional: She is oriented to person, place, and time. She appears well- developed and well-nourished. No distress. HENT: Head: Normocephalic and atraumatic. Right Ear: External ear normal. Left Ear: External ear normal. Nose: Nose normal. Mouth/Throat: Oropharynx is clear and moist. No oropharyngeal exudate. Eyes: Pupils are equal, [...] No respiratory distress. She has no wheezes. Abdominal: Soft. Bowel sounds are normal. She exhibits no distension. There is no tenderness. Musculoskeletal: Normal range of motion. She exhibits no edema or tenderness. Neurological: She is alert and oriented to person, place, and time. Numbness on the right side Skin: Skin is warm and dry. Capillary refill takes less than 2 seconds. No rash noted. She is not diaphoretic. No erythema. Psychiatric: She has a normal mood and affect. Her behavior is normal. Judgment and thought contentnormal. Lab/Radiology/Diagnostic Review: Laboratory review: Lab results in the last 24 hours: Recent Results (from the past 24 hour(s)) POCT glucose Collection Time: 01/23/18 4:17 PM Result Value Ref Range Glucose, POC, bld 152 70 - 199 mg/dL Comprehensive metabolic panel Collection Time: 01/23/18 4:39 PM Result Value Ref Range Sodium 137 135 - 145 mmol/L Potassium, pl 4.4 3.5 - 5.1 mmol/L Chloride 102 100 - 114 mmol/L CO2 28 22 - 32 mmol/L Anion Gap 11 8 - 16 mmol/L BUN 14 8 - 24 mg/dL Creatinine 0.90 0.60 - 1.30 mg/dL Glucose 145 70 - 199 mg/dL Calcium 10.1 8.4 - 10.5 mg/dL Bilirubin, total 0.70 0.10 - 1.30 mg/dL Protein, pl 7.9 6.0 - 8.3 g/dL Albumin 3.4 3.2 - 4.8 g/dL Alk phos 72 30 - 110 Units/L ALT 16 1 - 45 Units/L AST 18 7 - 40 Units/L CBC with auto differential Collection Time: 01/23/18 4:39 PM Result Value Ref Range WBC 12.4 (H) 3.8 - 9.9 K/cumm Hgb 12.6 11.9 - 15.5 g/dL Hct 41.3 35.6 - 45.5 % Plt 338 150 - 400 K/cumm MPV 9.5 9.1 - 12.3 fL RBC 4.63 3.90 - 5.20 M/cumm MCV 89.2 81.3 - 96.4 fL MCH 27.2 27.1 - 33.3 pg MCHC 30.5 (L) 32.3 - 35.7 g/dL RDW CV 14.6 11.1 - 14.9 % RDW SD 46.5 35.7 - 48.1 fL NRBC Abs 0.00 0.00 - 0.01 K/cumm Troponin I Collection Time: 01/23/18 4:39 PM Result Value Ref Range Troponin I <0.03 0.00 - 0.14 ng/mL Differential, auto Collection Time: 01/23/18 4:39 PM Result Value Ref Range Neutrophil absolute 8.6 (H) 1.7 - 6.5 K/cumm Immature granulocyte absolute 0.0 0.0 - 0.1 K/cumm Lymphocytes absolute 2.6 0.8 - 3.3 K/cumm Monocyte absolute 0.8 0.2 - 0.8 K/cumm Eosinophils absolute 0.3 0.0 - 0.5 K/cumm Basophils, abs 0.0 0.0 - 0.1 K/cumm Neutrophils 69.2 % Immature granulocytes 0.4 % Lymphocytes 20.6 % Monocytes 6.8 % Eosinophils 2.6 % Basophils 0.4 % eGFR Collection Time: 01/23/18 4:39 PM Result Value Ref Range GFR 69 mL/min/1.73 m2 POCT glucose Collection Time: 01/23/18 8:58 PM Result Value Ref Range Glucose, POC, bld 82 70 - 199 mg/dL POCT glucose Collection Time: 01/24/18 3:19 AM Result Value Ref Range Glucose, POC, bld 127 70 - 199 mg/dL Imaging review: I have reviewed the result(s) Chest x-ray FINDINGS: Portable AP radiograph of the chest was obtained. The heart and mediastinum are within normal limits. The lungs are well-expanded and clear. No bony abnormality is seen. ?? IMPRESSION: 1. No evidence of active cardiopulmonary disease. 2. No change from previous. CT of head There are no acute intra- or extra-axial fluid collections. Ventricles are of normal size, shape, and configuration. No mass effect or midline shift is present. The basal cisterns are patent. The carney-white matter differentiation is normal. The visualized portions of the orbits, paranasal sinuses, and mastoids are normal. No fractures are identified. ?? IMPRESSION: ?? 1. No acute intracranial process. Electrocardiogram review: I have reviewed the result(s) Compared to prior ECG Sinus tachycardia andPremature Ventricular Contraction are no longer present. Assessment /Plan Principal Problem: CVA (cerebral vascular accident) ([facility]) Active Problems: Essential hypertension Restless leg syndrome Type 2 diabetes mellitus with neurologic complication, without long-term current use of insulin (CMS/HCC) 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 Breast CA (CMS/HCC) 1. CVA- Patient on Stroke protocol CT (-) for acute process, MRI in the am and consult to neurology 2. HTN- obtain vital signs per floor protocol and adjust medication as needed, continue lisinopril 20 mg QD 3. Restless leg syndrome- Requip 5 mg QD 4. DM 2- Accu check AC and HS cover with SSI continue Lantus and basal does of Insulin with meals 5. Chronic Back pain- Continue Shelby 5-325 T6sftly PRN 6. Breast Cancer- Aromasin 25 mg Qhs 7. DVT prophylaxis- anticoagulated with Xarelto 20 mg QD Full Code Estimated length of Stay: 24 hour observation Britney Zavala [facility] Hospitalists [phone] 01/24/2018 4:31 AM Cosigned by Cem De DO at 01/24/2018 10:56 AM CDT documented in this encounter Consult Notes * Ko Melendez MD - 01/26/2018 3:01 PM CDTAssociated Order(s): IP CONSULT TO ORTHOPEDIC SURGERY Ortho IP Consult Reason for Consult: Neck pain and cervical MRI scan Requesting Provider: Elo Lei Ra* SUBJECTIVE: Patient is a 62 y.o. female with chief complaint of twitching of the eyes the right facial weaknessright upper extremity weakness some neck pain HPI: This patient is known to me I have been seeing her for lumbago and low back problems for several months now she was referred to pain management as part of her additional treatment. The current problem that required hospitalization started when she actually was in the office of her pain management physician and started getting twitching on the right side of her face some problems with the right eye some right upper extremity weakness. Obviously this was thought to be stroke-like symptoms and therefore his pain management physician requested that she be immediately evaluated in the emergency room. From there she was hospitalized for stroke-like symptoms and a CVA has been ruled out by neurolog ist and additional testing. 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 PAST MEDICAL HISTORY She has a past medical history of Adiposity; Breast CA (CMS/HCC); Cancer (CMS/HCC); CHF (congestiveheart failure) ([facility]); Depression; Diabetes [facility] [facility]); Disorder of thyroid; DVT (deep venous thrombosis) ([facility] OTHER MEDICAL; OTHER MEDICAL; Hypertension; Osteoarthritis; PE (pulmonary thrombo embolism) ([facility]); and Sleep apnea. PAST SURGICAL HISTORY She has a past surgical history that includes Other surgical history (2012); Cholecystectomy; Inguinal Hernia Repair; Cholecystectomy; Oophorectomy; Hernia repair; Knee Arthroplasty; Knee Arthroplasty; Cholecystectomy; Other surgical history; section; IR Inject Abscess Catheter (N/A, 11/26/2014); IR Inject Abscess Catheter (N/A, 11/26/2014); IR Inject Abscess Catheter (N/A, 11/14/2014); US Soft Tissue Abscess Drain (N/A, 12/11/2014); IR Abscess Tube Exchange (N/A, 11/05/2014); IR Inject Abscess Catheter (N/A, 11/05/2014); US Soft Tissue Abscess Drain (N/A, 10/24/2014); IR Fine Needle Aspiration W Image Guidance (N/A, 07/25/2014); and Breast surgery. MEDICATIONS HOME MEDICATIONS : exemestane (AROMASIN) 25 mg tablet HYDROcodone-acetaminophen (NORCO) 5-325 mg per tablet insulin glargine (LANTUS) 100 unit/mL injection insulin lispro (HumaLOG) 100 unit/mL injection lisinopril (PRINIVIL,ZESTRIL) 20 mg tablet oxybutynin (DITROPAN) 5 mg tablet polyethylene glycol (MIRALAX) 17 gram/dose powder rivaroxaban (XARELTO) 20 mg tablet rOPINIRole (REQUIP) 5 mg tablet ALLERGIES She is allergic to ceftriaxone; cephalosporins; latex; piperacillin-tazobactam; ketorolac; metoclopramide; oxycodone; and trazodone. SOCIAL HISTORY She reports that she has quit smoking. She has never used smokeless tobacco. She reports that she does not drink alcohol or use drugs. FAMILY HISTORY Her family history includes Breast cancer in her sister; Diabetes in her mother; Heart attack in her brother; Heart disease in her mother; Heart failure in her mother; Other in her father, mother, and another family member; Prostate cancer in her father; Stent in her brother; Stroke in her mother. REVIEW OF SYSTEMS Review of Systems Constitutional: Negative for chills and diaphoresis. HENT: Negative for congestion and hearing loss. Eyes: Negative for photophobia. Respiratory: Negative for hemoptysis. Cardiovascular: Negative for chest pain. Genitourinary: Negative for dysuria. Musculoskeletal: Positive for back pain and neck pain. Skin: Negative for rash. Neurological: Negative for dizziness and speech change. Psychiatric/Behavioral: Negative for suicidal ideas. Vitals: 24hr Min/Max: Temp Min: 36.3 ??C (97.4 ??F) Max: 36.7 ??C (98.1 ??F) Pulse Min: 52 Max: 103 BP Min: 103/61 Max: 131/76 Resp Min: 18 Max: 20 SpO2 Min: 97 % Max: 99 % Most Recent : Vitals: 01/26/18 0400 01/26/18 0800 01/26/18 0900 01/26/18 1200 BP: 123/60 123/73 131/76 BP Location: Right arm Left arm Left arm Patient Position: Pulse: 52 87 85 79 Resp: 18 18 20 Temp: 36.6 ??C (97.8 ??F) 36.6 ??C (97.9 ??F) 36.7 ??C (98 ??F) TempSrc: Oral Oral Oral SpO2: 99% 98% 98% Weight: Height: I/O last 2 completed shifts: In: 480 [P.O.:480] Out: - I/O this shift: In: 1000 [P.O.:1000] Out: - PHYSICAL EXAM General: Alert and oriented x 3, no distress or discomfort, gait normal Psych: Mood and affect are appropriate. Respiratory: Breathing is nonlabored with no audible wheezing. Extremities: Warm, no cyanosis or swelling. Light touch sensation normal. Able to move bilateral lower and upper extremities including bilateral feet. EHL intact. Normal ROM bilateral lower and upperextremities. Motor strength to the bilateral upper and lower extremities normal. Neurological: Alert and oriented x 3. CN grossly intact with no neurological deficits present. DTR's to all extremities normal. No hyperreflexia. Light touch sensation normal. Able to flex and dorsiflex bilateral lower extremities Skin: Warm and dry, no rashes or lesions present Cervical Spine: Normal skin no deformity no complaints of pain or tenderness at this time but she is wearing just ice pack on the neck as instructed by nursing staff. Neck motion appears full head compression is full. She is noticed to be overweight with a BMI of 52. Within the limits of her obesity her neurologicalexam upper and lower extremities normal. Lab/Radiology/Diagnostic Review: Recent Labs Lab Units 01/25/18 0416 WHITE BLOOD CELLS K/cumm 9.5 HEMOGLOBIN g/dL 11.8* HEMATOCRIT % 38.5 PLATELETS K/cumm 307 Recent Labs Lab Units 01/26/18 1140 01/25/18 0416 SODIUM mmol/L -- -- 136 POTASSIUM PLASMA mmol/L -- -- 4.3 CHLORIDE mmol/L -- -- 104 CO2 mmol/L -- -- 25 ANIONGAP mmol/L -- -- 11 BUN SERUM mg/dL -- -- 21 CREATININE mg/dL -- -- 0.66 GLUCOSE mg/dL -- -- 155 POC GLUCOSE MONITOR mg/dL 114 < > -- CALCIUM mg/dL -- -- 9.4 < > = values in this interval not displayed. Xr Spine Lumbar Complete 4 Or More Result Date: 01/01/2018 Narrative: RESULT: EXAMINATION: LUMBAR SPINE RADIOGRAPHS, 5 VIEWS Date: 12/31/2017 11:50 PM History: Low back pain Findings: There is no acute fracture or subluxation. There is multilevel facet arthropathy most predominant at L4-L5 and L5-S1. Vertebral body heights are well-maintained. Impression: No acute fracture or subluxation. Electronically signed by: Avelino Alonso M.D. Xr Hip Left 2+ Views Result Date: 01/01/2018 Narrative: RESULT: EXAMINATION: LEFT HIP RADIOGRAPHS, 2 VIEWS Date: 12/31/2017 11:50 PM History: PainFindings: There is no acute fracture or dislocation. The osseous density and left hip joint space are normal. Impression: No acute osseous abnormality. Electronically signed by: Avelino Alonso M.D. Xr Chest 1 Vw Portable Result Date: 01/23/2018 Narrative: RESULT: EXAM: XR CHEST 1 VIEW DATE: 01/23/2018 4:35 PM CLINICAL HISTORY: Headache, dizziness and dyspnea. COMPARISON: 12/15/2017 FINDINGS: Portable AP radiograph of the chest was obtained. The heart and mediastinum are within normal limits. The lungs are well-expanded and clear. No bony abnormality is seen. Impression: 1. No evidence of active cardiopulmonary disease. 2. No change from previous. Electronically signed by: Jimmie Paiz M.D. Mri Brain Wo Contrast Result Date: 01/26/2018 Narrative: MRI BRAIN WO CONTRAST HISTORY: Focal neuro deficit, > 6 hrs, stroke suspected. Acute cerebrovascular accident. TECHNIQUE: Noncontrast imaging was performed using axial and sagittal FLAIR, axial T1, T2 and diffusion-weighted sequences. COMPARISON: CT 01/25/2018 FINDINGS: The carney and white matter demonstrate normal morphology and signal characteristics. There is no evidence of acute intracranial hemorrhage, mass or infarction. Diffusion-weighted signal is normal throughout the cortical structures. The ventricles, gyri and sulci demonstrate normal size and configuration. Midline is normal. The extra-axial structures are unremarkable. Impression: NO EVIDENCE OF ACUTE INTRACRANIAL EVENT. Electronically signed by: Samson Fulton M.D. Mri Cervical Spine Wo Contrast Result Date: 01/26/2018 Narrative: MRI CERVICAL SPINE WO CONTRAST HISTORY: Radiculopathy. Neck pain. TECHNIQUE: Standard spine imaging was obtained using axial and sagittal T1 and T2 sequences without contrast. COMPARISON: None available. FINDINGS: The cervical column is normally aligned. There is no evidence of fracture,marrow edema, or osseous lesion. The craniocervical junction is normal. The visualized spinal cord is normal. The paraspinal soft tissues are normal. C1/2: The disc is normal. The spinal canal and neural foramina are patent. C2/3: The disc is normal. The spinal canal and neural foramina are patent.C3/4: The disc is normal. The spinal canal and neural foramina are patent. C4/5: The disc is normal. The spinal canal and neural foramina are patent. C5/6: The disc is normal. The spinal canal and neural foramina are patent. C6/7: Mild broad-based posterior disc bulging is present with no significant canal stenosis. Mild left foraminal stenosis is present secondary to eccentric disc bulging. C7/T1: The disc is normal. The spinal canal and neural foramina are patent. Impression: 1. MILD [id number] ECCENTRIC DISC BULGING AT C6-C7 CAUSING MINIMAL CANAL NARROWING AND MILD LEFT FORAMINAL NARROWING. 2. MINIMAL DIFFUSE DEGENERATIVE DISC DESICCATION OF THE CERVICAL SPINE. Electronically signed by: Samson Fulton M.D. Cta Head Neck W Wo Contrast Result Date: 01/26/2018 Narrative: RESULT: EXAMINATION: CTA HEAD NECK W WO CONTRAST dated 01/25/2018 10:50 AM HISTORY: 62-year-old woman with strokelike symptoms and suspected vascular disease. Previous history of breast carcinoma. History of diabetes and hypertension. Previous deep venous thrombosis. History of a pulmonary embolus. TECHNIQUE: CT angiographic protocol with pre and post contrasted images utilizing 95 mL of Optiray 350. Digital subtraction images with 2-D and 3-D reformations. Measurements based on NASCET criteria. FINDINGS: Prior examinations are not available for comparison. Mathematical Statistician radiograph and AP and lateral projections demonstrates no acute findings. Source images prior to contrast demonstrate age appropriate ventricles and sulci. No midline shift mass effect or hemorrhage. No masses seen within the cervical region. Lung apices are normally aerated. Small focal calcifications are seen in theright lobe of thyroid. Source images with contrast demonstrate normal vascular enhancement within the aorta, with patency of the great vessels in the neck. Small nodules are seen in the mildly enlarged right lobe of thyroid associated with the calcifications. Normal enhancement around the [place] of[place]. No abnormal intracranial enhancement is seen. Patency of the deep venous sinuses. Review of 2-D and 3-D images of the neck compromised by patient body habitus. The origin of great vessels from the aortic arch is grossly normal. Common carotid arteries are normal bilaterally. The bifurcations are normal with normal internal and external carotid arteries without hemodynamically significant areas of stenosis. No tandem lesions are seen. The vertebral arteries are grossly patent without stenosis with a dominant left vertebral artery. Examination of the intracranial circulation demonstrates normal vertebral and basilar arteries. Posterior cerebral arteries and superior cerebellar arteries are normal. Posterior communicating arteries are hypoplastic Intracranial internal carotid arteries, anterior and middle cerebral arteries appear to be normal without stenosis or occlusion. No aneurysmal dilatations are seen. Impression: NORMAL STUDY Electronically signed by: Manohar Quigley M.D. Ct Stroke Head Wo Contrast Result Date: 01/23/2018 Narrative: RESULT: EXAMINATION: CT STROKE HEAD WO CONTRAST HISTORY: Right arm weakness. Headache. Stroke. TECHNIQUE: Noncontrast CT of the brain was performed with axial images acquired from skull base to vertex. COMPARISON: Head CT dated 11/27/2017. FINDINGS: There are no acute intra- or extra-axial fluid collections. Ventricles are of normal size, shape, and configuration. No mass effect or midline shift is present. The basal cisterns are patent. The carney- white matter differentiation is normal. The visualized portions of the orbits, paranasal sinuses, and mastoids are normal. No fractures are identified. Impression: 1. No acute intracranial process. Findings reported by Dr. Ariel Joseph to Dr. Davis on 01/23/2018 at 4:31 PM. Electronically signed by: Brando Restrepo M.D. Cervical spine MRI scan that necessitated this consultation is seen. This shows cervical disc disease at C6-7 without any cervical cord compression without any neural compromise and without any foraminal compromise our radiculopathy. Assessment and Plan 1. I believe patient can be safely discharged from cervical point of view. I will continue to monitor her for her low back problems and see if and when necessary in the office for cervical spine problems as well. Thank you for this consultation Ko Melendez MD * Bebeto Briones MD - 01/24/2018 5:01 PM CDT [facility] Mohsen Marques CONSULTATION 01/24/2018 OV: Consultation at the request of Dr. De for an opinion regarding a stroke. I have personally taken a history, examined the patient and determined the assessment and plan as outlined below. Chief Complaint. Chief Complaint Patient presents with ??? Headache ??? Extremity Weakness HPI. Patient is a 62 y.o. female patient of Dr. Justen Gale This is a patient who was admitted because of numbness of the right upper extremity. This is a patient with a history of diabetes hypertension and a past history of breast cancer who came for her pain management appointment for her low back pain. While at the waiting room she went on to develop neck pain that progressed and to involve the whole head. This is a severe dull ache that was accompanied by repetitive eye blinking and subsequently she also noted the development of numbness of the right upper extremity. She saw Pain Management who recommended she go to the emergency room for further evaluation. In addition to those symptoms she also of complained of an impairment of vision. She desc ribed but was more of a tunnel vision. She also described mild dysphagia and a sensation of imbalance. There was no reported definite blindness or double vision slurred speech hearing loss tinnitus vertigo but today she is complaining of weakness of the right lower extremity. No loss of conscious was identified. Noncontrast head CT was performed the films I personally reviewed that showed no evidence of any acute stroke. An MRI of the brain and cervical spine is pending but she is claustrophobic and she has a BMI of 52.93 so she will need an open MRI. Past Medical History: Diagnosis Date ??? Adiposity [...] ABSCESS DRAIN N/A 10/24/2014 HOME MEDICATIONS : exemestane (AROMASIN) 25 mg tablet HYDROcodone-acetaminophen (NORCO) 5-325 mg per tablet insulin glargine (LANTUS) 100 unit/mL injection insulin lispro (HumaLOG) 100 unit/mL injection lisinopril (PRINIVIL,ZESTRIL) 20 mg tablet oxybutynin (DITROPAN) 5 mg tablet polyethylene glycol (MIRALAX) 17 gram/dose powder rivaroxaban (XARELTO) 20 mg tablet rOPINIRole (REQUIP) 5 mg tablet Allergies Allergen Reactions ??? Ceftriaxone Anaphylaxis R ??? Cephalosporins Anaphylaxis ??? Latex Rash ??? Piperacillin-Tazobactam Rash ??? Ketorolac Itching ??? Metoclopramide Other (See comments) Other reaction(s): Hyperactive Restless leg syndrome ??? Oxycodone Vomiting ??? Trazodone Other (See comments) Shaky, restlessness, itching, throat swelling Social History Substance Use Topics ??? Smoking status: Former Smoker ??? Smokeless tobacco: Never Used Comment: remote tobacco use ??? Alcohol use No Family History Problem Relation Age of [...] history of restless leg syndrome; Review of Systems Constitution: Negative for chills, decreased appetite, diaphoresis, fever, weakness, malaise/fatigue, night sweats, weight gain and weight loss. HENT: Negative for congestion, hearing loss, hoarse voice, nosebleeds, sore throat and tinnitus. Eyes: Negative for blurred vision, double vision and visual halos. Cardiovascular: Negative for chest pain, claudication, dyspnea on exertion, irregular heartbeat, near-syncope, palpitations and syncope. Respiratory: Negative for cough, shortness of breath, sleep disturbances due to breathing and snoring. Endocrine: Negative for cold intolerance, heat intolerance, polydipsia, polyphagia and polyuria. Hematologic/Lymphatic: Negative for adenopathy and bleeding problem. Does not bruise/bleed easily. Skin: Negative for rash. Musculoskeletal: Positive for neck pain. Negative for back pain, falls, joint pain, joint swelling,muscle cramps, muscle weakness, myalgias and stiffness. Gastrointestinal: Negative for abdominal pain, bowel incontinence, constipation, diarrhea, dysphagia, jaundice, nausea and vomiting. Genitourinary: Negative for bladder incontinence, decreased libido, dysuria, flank pain, frequency,hematuria, hesitancy and incomplete emptying. Neurological: Positive for focal weakness, headaches, numbness and paresthesias. Negative for aphonia, brief paralysis, difficulty with concentration, disturbances in coordination, excessive daytime sleepiness, dizziness, light- headedness, loss of balance, seizures, sensory change, tremors and vertigo. Psychiatric/Behavioral: Negative for altered mental status, depression, hallucinations, memory loss, substance abuse and suicidal ideas. The patient does not have insomnia and is not nervous/anxious. Allergic/Immunologic: Negative for environmental allergies and HIV exposure. Physical Exam Constitutional: She is oriented to person, place, and time. She appears well- developed and well-nourished. HENT: Head: Normocephalic and atraumatic. Eyes: Pupils are equal, round, and reactive to light. Conjunctivae and EOM are normal. No scleral icterus. Neck: Normal range of motion. Neck supple. Cardiovascular: Normal rate, regular rhythm and normal heart sounds. No murmur heard. Pulmonary/Chest: Breath sounds normal. Abdominal: Soft. Musculoskeletal: Normal range of motion. Neurological: She is oriented to person, place, and time. She has a normal Ljcgov-Dydh-Trrjti Test. Reflex Scores: Tricep reflexes are 1+ on the right side and 1+ on the left side. Bicep reflexes are 1+ on the right side and 1+ on the left side. Brachioradialis reflexes are 1+ on the right side and 1+ on the left side. Patellar reflexes are 1+ on the right side and 1+ on the left side. Achilles reflexes are 1+ on the right side and 1+ on the left side. Skin: Skin is warm. Psychiatric: She has a normal mood and affect. Her speech is normal. Vitals reviewed. Neurologic Exam Mental Status Oriented to person, place, and time. Oriented to person. Oriented to place. Oriented to country, city and area. Oriented to time. Oriented to year, month, date, day and season. Registration: recalls 3 of 3 objects. Recall at 5 minutes: recalls 3 of 3 objects. Follows 3 step commands. Attention: normal. Concentration: normal. Speech: speech is normal Level of consciousness: alert Knowledge: good. Able to perform simple calculations. Able to name object. Able to read. Able to repeat. Able to write. Normal comprehension. Cranial Nerves CN II Visual rincon full to confrontation. Right visual field deficit: none Left visual field deficit: none CN III, IV, Pupils are equal, round, and reactive to light. Extraocular motions are normal. Right pupil: Shape: regular. Reactivity: brisk. Left pupil: Shape: regular. Reactivity: brisk. Nystagmus: none Diplopia: none Ophthalmoparesis: none Upgaze: normal Downgaze: normal Conjugate gaze: present CN V Facial sensation intact. Right facial sensation deficit: none Left facial sensation deficit: none CN VII Right facial weakness: central Left facial weakness: none CN VIII CN VIII normal. Hearing: intact CN IX, X CN IX normal. CN X normal. Palate: symmetric CN XI CN XI normal. Right sternocleidomastoid strength: normal Left sternocleidomastoid strength: normal Right trapezius strength: normal Left trapezius strength: normal CN XII Tongue: not atrophic Fasciculations: absent Tongue deviation: none Motor Exam Strength Strength 5/5 except as noted. Right leg 4/5 Sensory Exam There is decreased sensation to pinprick and light touch in the right upper extremity Gait, Coordination, and Reflexes Coordination Finger to nose coordination: normal Tremor Resting tremor: absent Intention tremor: absent Action tremor: absent Reflexes Right brachioradialis: 1+ Left brachioradialis: 1+ Right biceps: 1+ Left biceps: 1+ Right triceps: 1+ Left triceps: 1+ Right patellar: 1+ Left patellar: 1+ Right achilles: 1+ Left achilles: 1+ Right an/sqq 89(v)15 sonar system journeyman: 1+ Left an/sqq 89(v)15 sonar system journeyman: 1+ Right plantar: normal Left plantar: normal Her hemoglobin A1c is 7.9 her LDL is 101 Transthoracic echocardiogram shows no cardiac source of stroke. Impression and Recommendations. The patient presents with weakness and numbness. The numbness involves the right upper extremity and weakness involves the right lower extremity. She has risk factors for stroke the that include hypertension as well as diabetes. The patient will be scheduled for CT angiogram of the head and neck and the patient's carotid Doppler study will be discontinued. The patient is claustrophobic and will need to have the MRI of her brain and cervical spine performed at an open MRI. For now continue aspirin and pain management. Further recommendations to follow completion of the CT angiogram and MRI of the brain and cervical spine. Thank you for allowing me to participate in your patient's care my colleagues and I will follow this patient with you as often as needed. Bebeto Briones MD documented in this encounter Nursing Notes * rPisca Barrett RN - 01/26/2018 10:23 AM CDT Home prandial insulin dose in use here, however hospital meals less than at home. Glucose 83 / by dinnertime. Recommend decreasing home prandial insulin 20% while in the hospital. Patient has home meter and insulin. No diabetes needs for home present. documented in this encounter ED Notes * Erick Davis MD - 01/23/2018 5:07 PM CDT HPI No chief complaint on file. 4:17 PM 01/23/2018 Patient is 61 y/o female with a h/o diabetes and lower back pain presenting to the ED c/o neck painthat began almost 1 hour ago. Patient states the pain originally began 2 days ago and resolved but has returned this morning. Patient also reports headache, pain in her right eye, right arm and hand numbness, and eye twitching described as being unable to open her eyes fully. She was at a pain management center IT HELP DESK TECHNICIAN for a consult about her lower back when she began experiencing these symptoms around 1530. He then recommended that she go to the ED. She states she took a [place] at 230 this morning for her back pain. No other complaints addressed at this time. PCP: Justen Gale Patient History Patient Active Problem List Diagnosis Date Noted ??? Anxiety and depression 11/12/2017 ??? Uncontrolled type 2 diabetes mellitus with hyperglycemia, with long-term current use of insulin([facility]) 11/06/2017 ??? Allergy to drug 11/06/2017 ??? Dysuria 10/26/2017 ??? Acute left-sided low back pain with left-sided sciatica 10/23/2017 ??? Type 2 diabetes mellitus with neurologic complication, without long-term current use of insulin([facility]) 10/23/2017 ??? Essential hypertension 10/23/2017 ??? Long-term current use of opiate analgesic 10/23/2017 ??? Lumbosacral spondylosis without myelopathy 10/23/2017 ??? Radiculopathy, lumbosacral region 10/23/2017 ??? Spinal stenosis of lumbar region without neurogenic claudication 10/23/2017 ??? 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 ??? Type 2 diabetes mellitus with hyperglycemia, without long-term current use of insulin ([facility]) ??? Constipation ??? Malignant neoplasm of upper-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 ([facility]) 10/17/2017 ??? Cancer of overlapping sites of left female breast ([facility]) 10/13/2017 ??? Chronic anticoagulation ??? Restless leg syndrome ??? Chest pressure 08/01/2017 ??? Positive blood culture 08/01/2017 ??? Hyponatremia 08/01/2017 ??? Diet-controlled diabetes mellitus ([facility]) 08/01/2017 ??? LUL (obstructive sleep apnea) 08/01/2017 [...] are negative. Physical Exam ED Triage Vitals [01/23/18 1650] Temp Pulse Resp BP SpO2 36.5 ??C (97.7 ??F) 90 18 132/92 100 % Temp src Heart Rate Source Patient Position BP Location FiO2 (%) -- -- -- -- -- Physical Exam Constitutional: She is oriented to person, place, and time. She appears well- developed and well-nourished. HENT: Head: Normocephalic. Eyes: Pupils are equal, round, and reactive to light. Cardiovascular: Normal rate and regular rhythm. Pulmonary/Chest: Effort normal and breath sounds normal. Neurological: She is alert and oriented to person, place, and time. Mental Status: A&O; age appropriate. CN I: Exam deferred. CN II: PERRLA. CN III,IV: Eyelids opening; EOMI; direct and consensual pupillary light reflexes. CN V: Bite strength normal. CN VII: Eyebrow raise, eyelid close, smile, frown, pucker intact. Taste deferred. CN VIII: Hearing grossly intact. CN IX,X: Swallowing, Phonation, Gag reflex normal. CN XI: Lateral head rotation, Neck rotation, Shoulder shrug intact. CN XII: Tongue protrusion normal. Sensation: Intact to Light Touch Bilaterally. Strength: 5/5 with Elbow flexion, elbow extension, knee extension, knee flection, hip flexion. Cerebellum: FTN nl. Gait: Nl gait. Nursing note and vitals reviewed. [facility] ED Course as of Jan 23 1745 Time: 01/24 1708 Comment: If applicable: The patient has been informed that they may have pre- hypertension or Hypertension based on a blood pressure reading in the emergency department. I recommend that the patient call the primary care provider listed on their discharge instructions or a physician of their choice this week to arrange follow up for further evaluation of possible pre-hypertension or Hypertension. By: Ester Greenwood Time: 01/24 1708 Comment: Preliminary reading caveat: Please be aware that if this encounter involved a CT scan, there is a high probability that at the time I assessed the patient I had an initial interpretation available to me by the radiologist. The actual detailed descriptive impression that is in the chart maynot have been available to me at the time of assessing the patient. 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 By: Ester Greenwood Time: 01/24 1736 Comment: Case discussed with Dr. Tavarez Time discussed: 5:35 PM HPI, physical exam, labs, radiographic evaluation, medications/interventions, EKG (if done), EMS note (if available) were discussed. Dr. Tavarez agrees to accept care of the patient at this time. Interim/bridging admission orders reviewed and agreed upon. Furthermore, the floor where the patient was admitted to and the consultants were agreed upon. Nursing notes reviewed as of this entry. EMS note (if available) has been reviewed. By: Ester Greenwood Labs Reviewed CBC WITH AUTO DIFFERENTIAL - Abnormal Result Value WBC 12.4 (*) Hgb 12.6 Hct 41.3 Plt 338 MPV 9.5 RBC 4.63 MCV 89.2 MCH 27.2 MCHC 30.5 (*) RDW CV 14.6 RDW SD 46.5 NRBC Abs 0.00 Narrative: DIFFERENTIAL AUTO - Abnormal Neutrophil absolute 8.6 (*) Immature granulocyte absolute 0.0 Lymphocytes absolute 2.6 Monocyte absolute 0.8 Eosinophils absolute 0.3 Basophils, abs 0.0 Neutrophils 69.2 Immature granulocytes 0.4 Lymphocytes 20.6 Monocytes 6.8 Eosinophils 2.6 Basophils 0.4 Narrative: URINALYSIS AND REFLEX TO MICROSCOPIC AND CULTURE COMPREHENSIVE METABOLIC PANEL TROPONIN I POCT GLUCOSE DEVICE Glucose, POC, bld 152 Narrative: XR Chest 1 Vw Portable Final Result 1. No evidence of active cardiopulmonary disease. 2. No change from previous. Electronically signed by: Jimmie Paiz M.D. CT Stroke Head WO Contrast Final Result 1. No acute intracranial process. Findings reported by Dr. Restrepo to Dr. Davis on 01/23/2018 at 4:31 PM. Electronically signed by: Brando Restrepo M.D. BP 132/92 Pulse 90 Temp 36.5 ??C (97.7 ??F) Resp 18 SpO2 100% Procedures Numbness Ester Greenwood scribed for Erick Davis MD in the doctor's presence. I electronically signed this note at 5:08 PM on 01/23/2018. I, Erick Davis MD, have personally performed the services described in the documentation , reviewed the documentation, as recorded by the scribe in my presence, and it accurately and completely records my words and actions. Erick Davis MD 02/09/182023 documented in this encounter Miscellaneous Notes * Plan of Care - Aislinn Vargas LPN - 01/26/2018 4:43 PM CDT Goals: Clinical Goals for the Shift: pain management, review test results Summary: Pt is showing steady improvement with pain management. She informs staff of pain before itgets too bad. Blood glucose levels stable throughout shift. * Plan of Care - Archana Watkins PTA - 01/26/2018 12:29 PM CDT Problem: PT Misc Goal: STG - Misc 1 Patient will transfer supine to/from sit with modified indep. Outcome: Progressing Goal: STG - Misc 3 Patient will amb 75' with modified indep and least restrictive device. Outcome: Progressing Goal: STG - Misc 4 Patient will perform HEP with SBA. Outcome: Progressing * Plan of Care - Heaven Tee COTA - 01/26/2018 10:54 AM CDT Problem: Dressings Lower Extremities Goal: STG - Patient to complete lower body dressing MODIFIED INDEP. X1 Outcome: Progressing LE DRESSING (OVERALL ASSIST LEVEL): modified independence (sock aid) COMPONENTS PERFORMANCE: OVERALL COMPLETED 4 / 4 COMPONENTS WITHOUT PHYSICAL ASSIST TASK: doff slip on shoes and donned both socks LOCATION: seated EOB ADAPTIVE EQUIPMENT: sock aid Problem: OT Misc Goal: STG - Misc 1 PATIENT WILLCOMPETE UE STRENGTHENING EX. INDEP. WITH HANDOUT X1 Outcome: Progressing EXERCISE TYPE: BUE AROM 2# dowel NUMBER OF EXERCISES: 4 NUMBER OF REPETITIONS: 15 ASSIST LEVEL: verbal instructions and hand out LOCATION OF COMPLETION: seated EOB TOLERANCE: good tolerance with rest breaks as needed Goal: STG - Misc 4 PATIENT WILL COMPENSATE FOR RIGHT VISUAL FIELD DEFECIT WITHOUT CUES X1 Outcome: Progressing Educated patient on strategies for compensation of right visual field deficit * Network Firewall Engineer Pre-admission Screen - Fabiola Tompkins - 01/26/2018 9:24 AM CDT Referral f/u. Pt still with ongoing diagnostics, but pt has been able to transfer with modified independence in OT and ambulated 150'x1 with sba. Pt is too high level to meet acute in pt rehab criteria. Will sign off the case. If pt';s condition has a significant change, please re order CMR consult. * Plan of Care - Patrizia Valdez RN - 01/26/2018 2:40 AM CDT Goals: Clinical Goals for the Shift: pain management Summary: Health Behavior: ??? Understanding of discharge needs will improve Progressing Lack of Knowledge: ??? Ability to state ways to decrease the risk of falls will improve Progressing Lack of Knowledge: ??? Verbalization of understanding the information provided will improve Progressing Safety: ??? Will remain free from falls Progressing ??? Will remain free from injury from falls Progressing ??? Will remain free from falls and injury in home environment Progressing * Plan of Care - Bonnie Santoyo RRT - 01/26/2018 12:19 AM CDT Resolve headache Wear cpap machine while sleeping * Plan of Care - Domitila Ceron OT - 01/25/2018 3:49 PM CDT Problem: OT Misc Goal: STG - Misc 1 PATIENT WILLCOMPETE UE STRENGTHENING EX. INDEP. WITH HANDOUT X1 Outcome: Progressing * Plan of Care - Paris Vega, PT - 01/25/2018 3:26 PM CDT Problem: PT Misc Goal: STG - Misc 1 Patient will transfer supine to/from sit with modified indep. Outcome: Progressing Goal: STG - Misc 2 Patient will transfer sit to/from stand with modified indep. Outcome: Progressing Goal: STG - Misc 3 Patient will amb 75' with modified indep and least restrictive device. Outcome: Progressing Goal: STG - Misc 4 Patient will perform HEP with SBA. Outcome: Progressing * Plan of Care - Jennifer Costa RN - 01/25/2018 3:14 PM CDT Goals: Clinical Goals for the Shift: stroke pathway, neuro checks Summary: * Network Firewall Engineer Pre-admission Screen - Aileen Craig RN - 01/25/2018 8:56 AM CDT Acute Inpatient Rehabilitation Referral Update: Pending MRI of the Brain and Cervical Spine. Therapies are recommending Home with 24 hour assistance and follow up therapies to work on deficits. Will follow patient on an as needed basis. * Plan of Care - Alexandra Henson RN - 01/25/2018 6:10 AM CDT Goals: Clinical Goals for the Shift: stroke pathway, neuro checks Summary: * Plan of Care - Aislinn Vargas LPN - 01/24/2018 1:15 PM CDT Goals: Clinical Goals for the Shift: stroke pathway, neuro checks Summary: Pt scheduled for MRI today. Also working on management of pain. * Network Firewall Engineer Pre-admission Screen - Aileen Craig RN - 01/24/2018 12:44 PM CDT Acute Inpatient Rehabilitation Referral Received: Will review pending tests, Physician progress notes and recommendations. Will review Physical Therapy, Occupational Therapy and Speech Language Pathology evaluations and recommendations. Will continue to follow patient. * Plan of Care - Alexandra Henson RN - 01/24/2018 6:33 AM CDT Goals: Clinical Goals for the Shift: stroke pathway, neuro checks Summary: documented in this encounter Plan of Treatment Not on file documented as of this encounter Procedures Procedure Name Priority Date/Time Associated Diagnosis Comments POCT GLUCOSE DEVICE Routine 01/26/2018 4 :34 PM CDT POCT GLUCOSE DEVICE Routine 01/26/2018 1 1:40 AM CDT POCT GLUCOSE DEVICE Routine 01/26/2018 1 0:12 AM CDT POCT GLUCOSE DEVICE Routine 01/26/2018 6 :12 AM CDT POCT GLUCOSE DEVICE Routine 01/26/2018 3 :45 AM CDT POCT GLUCOSE DEVICE Routine 01/25/2018 8 :44 PM CDT POCT GLUCOSE DEVICE Routine 01/25/2018 6 :53 PM CDT POCT GLUCOSE DEVICE Routine 01/25/2018 6 :30 PM CDT CTA HEAD NECK W WO CONTRAST IP Routine 01/25/2018 6:25 PM CDT MRI CERVICAL SPINE WO CONTRAST IP Routine 01/25/2018 6:02 PM CDT MRI BRAIN WO CONTRAST IP Routine 01/25/2018 5:36 PM CDT POCT GLUCOSE DEVICE Routine 01/25/2018 1 2:03 PM CDT POCT GLUCOSE DEVICE Routine 01/25/2018 9 :24 AM CDT POCT GLUCOSE DEVICE Routine 01/25/2018 5 :56 AM CDT EGFR Routine 01/25/2018 4:16 AM CDT DIFFERENTIAL AUTO Routine 01/25/2018 4:1 6 AM CDT CBC WITH AUTO DIFFERENTIAL Routine 01/25/2018 4:16 AM CDT BASIC METABOLIC PANEL Routine 01/25/2018 4:16 AM CDT POCT GLUCOSE DEVICE Routine 01/25/2018 3 :25 AM CDT POCT GLUCOSE DEVICE Routine 01/24/2018 9 :02 PM CDT POCT GLUCOSE DEVICE Routine 01/24/2018 5 :13 PM CDT POCT GLUCOSE DEVICE Routine 01/24/2018 1 1:19 AM CDT POCT GLUCOSE DEVICE Routine 01/24/2018 8 :16 AM CDT EGFR Routine 01/24/2018 6:29 AM CDT DIFFERENTIAL AUTO Routine 01/24/2018 6:2 9 AM CDT CBC WITH AUTO DIFFERENTIAL Routine 01/24/2018 6:29 AM CDT LIPID PANEL Routine 01/24/2018 6:29 AM CDT COMPREHENSIVE METABOLIC PANEL Routine 01/24/2018 6:29 AM CDT POCT GLUCOSE DEVICE Routine 01/24/2018 6 :19 AM CDT POCT GLUCOSE DEVICE Routine 01/24/2018 3 :19 AM CDT POCT GLUCOSE DEVICE Routine 01/23/2018 8 :58 PM CDT XR CHEST 1 VIEW ED 01/23/2018 4:58 PM CDT EGFR STAT 01/23/2018 4:39 PM CDT DIFFERENTIAL AUTO STAT 01/23/2018 4:3 9 PM CDT CBC WITH AUTO DIFFERENTIAL STAT 01/23/2018 4:39 PM CDT TROPONIN I STAT 01/23/2018 4:39 PM CDT HEMOGLOBIN A1C Routine 01/23/2018 4:39 PM CDT COMPREHENSIVE METABOLIC PANEL STAT 01/23/2018 4:39 PM CDT ECG 12-LEAD STAT 01/23/2018 4:[address] STROKE PROTOCOL WO CONTRAST Critical/Life-T hreatening 01/23/2018 4:28 PM CDT POCT GLUCOSE DEVICE Routine 01/23/2018 4 :17 PM CDT documented in this encounter Results * POCT glucose (01/26/2018 4:34 PM CDT) [facility] Glucose, POC 122 70 - 199 mg/dL MARY JANE Blood specimen (specimen) 01/26/2018 4:34 PM CDT 01/26/2018 4:34 PM CDT Narrative MARY JANE ARNOLD - 01/26/2018 4:36 PM CDT Elo Aceves MD LAB POCT ORDERABLES - DEVICE Final Result Performing Organization Address [facility]/ZIP Co de Phone Number MARY JANE ARNOLD [id number] [facility] [place] [place], [place] [id number] * POCT glucose (01/26/2018 11:40 AM CDT) Glucose, POC 114 70 - 199 mg/dL CERNER CH Blood specimen (specimen) 01/26/2018 11:40 AM CDT 01/26/2018 11:40 AM CDT Narrative CERNER CH - 01/26/2018 11:47 AM CDT Elo Aceves MD LAB POCT ORDERABLES - DEVICE Final Result Performing Organization Address [facility] Co de Phone Number MARY JANE ARNOLD [phone] [facility] [place] [address] * POCT glucose (01/26/2018 10:12 AM CDT) Glucose, POC 103 70 - 199 mg/dL CERNER CH Blood specimen (specimen) 01/26/2018 10:12 AM CDT 01/26/2018 10:12 AM CDT Narrative CERNER CH - 01/26/2018 10:16 AM CDT Cem De DO LAB POCT ORDERABLES - NILESH CE Final Result Performing Organization Address City/[facility]/ZIP Co de Phone Number MARY JANE ARNOLD [phone] [address] [facility] [place] [address] * POCT glucose (01/26/2018 6:12 AM CDT) Glucose, POC 178 70 - 199 mg/dL CERNER CH Blood specimen (specimen) 01/26/2018 6:12 AM CDT 01/26/2018 6:12 AM CDT Narrative CERNER CH - 01/26/2018 6:14 AM CDT [facility]LES - NILESH CE Final Result Performing Organization Address [facility] Co de Phone Number MARY JANE ARNOLD [phone] [facility] [place] [address] * POCT glucose (01/26/2018 3:45 AM CDT) Glucose, POC 132 70 - 199 mg/dL CERNER CH Blood specimen (specimen) 01/26/2018 3:45 AM CDT 01/26/2018 3:45 AM CDT Narrative CERNER CH - 01/26/2018 3:46 AM CDT [facility] POCT ORDERABLES - NILESH CE Final Result Performing Organization Address [facility] Co de Phone Number MARY JANE ARNOLD [phone] [place] [address] * POCT glucose (01/25/2018 8:44 PM CDT) Glucose, POC 117 70 - 199 mg/dL CERNER CH Blood specimen (specimen) 01/25/2018 8:44 PM CDT 01/25/2018 8:44 PM CDT Narrative CERNER CH - 01/25/2018 8:46 PM CDT [facility] POCT ORDERABLES - NILESH CE Final Result Performing Organization Address [facility] Co de Phone Number MARY JANE ARNOLD [phone] [place] [address] * POCT glucose (01/25/2018 6:53 PM CDT) Glucose, POC 93 70 - 199 mg/dL CERNER CH Blood specimen (specimen) 01/25/2018 6:53 PM CDT 01/25/2018 6:53 PM CDT Narrative CERNER CH - 01/25/2018 6:55 PM CDT Cem De DO LAB POCT ORDERABLES - NILESH CE Final Result Performing Organization Address City/[facility]/ZIP Co de Phone Number MARY JANE ARNOLD [phone] [place] [address] * POCT glucose (01/25/2018 6:30 PM CDT) [facility] Signature Glucose, POC 83 70 - 199 mg/dL MARY JANE Blood specimen (specimen) 01/25/2018 6:30 PM CDT 01/25/2018 6:30 PM CDT Narrative MARY JANE - 01/25/2018 6:35 PM CDT Cem De DO LAB POCT ORDERABLES - NILESH CE Final Result Performing Organization Address [facility] de Phone Number MARY JANE ARNOLD [address] [place] [address] * CTA Head Neck W WO Contrast (01/25/2018 6:25 PM CDT) Anatomical Region Laterality Modality Head and Neck N/A Computed Tomogra phy 01/26/2018 8:53 AM CDT Impressions 01/26/2018 9:00 AM CDT NORMAL STUDY Electronically signed by: Manohar Quigley M.D. Narrative 01/26/2018 9:00 AM CDT RESULT: EXAMINATION: CTA HEAD NECK W WO CONTRAST dated 01/25/2018 10:50 AM HISTORY: 62-year-old woman with strokelike symptoms and suspected vascular disease. ??Previous history of breast carcinoma. ??History of diabetes and hypertension. ??Previous deep venous thrombosis. ??History of a pulmonary embolus. TECHNIQUE: CT angiographic protocol with pre and post contrasted images utilizing 95 mL of Optiray 350. ??Digital subtraction images with 2-D and 3-D reformations. ??Measurements based on NASCET criteria. FINDINGS: Prior examinations are not available for comparison. ??Mathematical Statistician radiograph and AP and lateral projections demonstrates no acute findings. ??Source images prior to contrast demonstrate age appropriate ventricles and sulci. ??No midline shift mass effect or hemorrhage. ??No masses seen within the cervical region. ??Lung apices are normally aerated. ??Small focal calcifications are seen in the right lobe of thyroid. ??Source images with contrast demonstrate normal vascular enhancement within the aorta, with patency of the great vessels in the neck. ??Small nodules are seen in the mildly enlarged right lobe of thyroid associated with the calcifications. Normal enhancement around the [place]. ??No abnormal intracranial enhancement is seen. ??Patency of the deep venous sinuses. Review of 2-D and 3-D images of the neck compromised by patient body habitus. ??The origin of great vessels from the aortic arch is grossly normal. ??Common carotid arteries are normal bilaterally. ??The bifurcations are normal with normal internal and external carotid arteries without hemodynamically significant areas of stenosis. ??No tandem lesions are seen. ??The vertebral arteries are grossly patent without stenosis with a dominant left vertebral artery. Examination of the intracranial circulation demonstrates normal vertebral and basilar arteries. ??Posterior cerebral arteries and superior cerebellar arteries are normal. ??Posterior communicating arteries are hypoplastic Intracranial internal carotid arteries, anterior and middle cerebral arteries appear to be normal without stenosis or occlusion. ??No aneurysmal dilatations are seen. Procedure Note Manohar Quigley MD - 01/26/2018 RESULT: EXAMINATION: CTA HEAD NECK W WO CONTRAST dated 01/25/2018 10:50 AM HISTORY: 62-year-old woman with strokelike symptoms and suspected vascular disease. Previous history of breast carcinoma. History of diabetes and hypertension. Previous deep venous thrombosis. History of a pulmonary embolus. TECHNIQUE: CT angiographic protocol with pre and post contrasted images utilizing 95 mL of Optiray 350. Digital subtraction images with 2-D and 3-D reformations. Measurements based on NASCET criteria. FINDINGS: Prior examinations are not available for comparison. Mathematical Statistician radiograph and AP and lateral projections demonstrates no acute findings. Source images prior to contrast demonstrate age appropriate ventricles and sulci. No midline shift mass effect or hemorrhage. No masses seen within the cervical region. Lung apices are normally aerated. Small focal calcifications are seen in the right lobe of thyroid. Source images with contrast demonstrate normal vascular enhancement within the aorta, with patency of the great vessels in the neck. Small nodules are seen in the mildly enlarged right lobe of thyroid associated with the calcifications. Normal enhancement around the [place]. No abnormal intracranial enhancement is seen. Patency of the deep venous sinuses. Review of 2-D and 3-D images of the neck compromised by patient body habitus. The origin of great vessels from the aortic arch is grossly normal. Common carotid arteries are normal bilaterally. The bifurcations are normal with normal internal and external carotid arteries without hemodynamically significant areas of stenosis. No tandem lesions are seen. The vertebral arteries are grossly patent without stenosis with a dominant left vertebral artery. Examination of the intracranial circulation demonstrates normal vertebral and basilar arteries. Posterior cerebral arteries and superior cerebellar arteries are normal. Posterior communicating arteries are hypoplastic Intracranial internal carotid arteries, anterior and middle cerebral arteries appear to be normal without stenosis or occlusion. No aneurysmal dilatations are seen. IMPRESSION: NORMAL STUDY Electronically signed by: Manohar Quigley M.D. us Bebeto Briones II, MD IMG CT PROCEDURES Final Resu lt * MRI Cervical Spine WO Contrast (01/25/2018 6:02 PM CDT) Anatomical Region Laterality Modality Spine N/A Magnetic Resonan ce 01/26/2018 8:59 AM CDT Impressions 01/26/2018 9:03 AM CDT 1. ??MILD [id number] ECCENTRIC DISC BULGING AT C6-C7 CAUSING MINIMAL CANAL NARROWING AND MILD LEFT FORAMINAL NARROWING. 2. ??MINIMAL DIFFUSE DEGENERATIVE DISC DESICCATION OF THE CERVICAL SPINE. Electronically signed by: Samson Fulton M.D. Narrative 01/26/2018 9:03 AM CDT MRI CERVICAL SPINE WO CONTRAST HISTORY: Radiculopathy. ??Neck pain. TECHNIQUE: Standard spine imaging was obtained using axial and sagittal T1 and T2 sequences without contrast. COMPARISON: None available. FINDINGS: The cervical column is normally aligned. There is no evidence of fracture, marrow edema, or osseous lesion. The craniocervical junction is normal. The visualized spinal cord is normal. The paraspinal soft tissues are normal. C1/2: ??The disc is normal. The spinal canal and neural foramina are patent. C2/3: The disc is normal. The spinal canal and neural foramina are patent. C3/4: The disc is normal. The spinal canal and neural foramina are patent. C4/5: The disc is normal. The spinal canal and neural foramina are patent. C5/6: The disc is normal. The spinal canal and neural foramina are patent. C6/7: Mild broad-based posterior disc bulging is present with no significant canal stenosis. ??Mild left foraminal stenosis is present secondary to eccentric disc bulging. C7/T1: The disc is normal. The spinal canal and neural foramina are patent. Procedure Note Samson Fulton MD - 01/26/2018 MRI CERVICAL SPINE WO CONTRAST HISTORY: Radiculopathy. Neck pain. TECHNIQUE: Standard spine imaging was obtained using axial and sagittal T1 and T2 sequences without contrast. COMPARISON: None available. FINDINGS: The cervical column is normally aligned. There is no evidence of fracture, marrow edema, or osseous lesion. The craniocervical junction is normal. The visualized spinal cord is normal. The paraspinal soft tissues are normal. C1/2: The disc is normal. The spinal canal and neural foramina are patent. C2/3: The disc is normal. The spinal canal and neural foramina are patent. C3/4: The disc is normal. The spinal canal and neural foramina are patent. C4/5: The disc is normal. The spinal canal and neural foramina are patent. C5/6: The disc is normal. The spinal canal and neural foramina are patent. C6/7: Mild broad-based posterior disc bulging is present with no significant canal stenosis. Mild left foraminal stenosis is present secondary to eccentric disc bulging. C7/T1: The disc is normal. The spinal canal and neural foramina are patent. IMPRESSION: 1. MILD [id number] ECCENTRIC DISC BULGING AT C6-C7 CAUSING MINIMAL CANAL NARROWING AND MILD LEFT FORAMINAL NARROWING. 2. MINIMAL DIFFUSE DEGENERATIVE DISC DESICCATION OF THE CERVICAL SPINE. Electronically signed by: Samson Fulton M.D. Cem De DO IMG MRI PROCEDURES Final R esult * MRI Brain WO Contrast (01/25/2018 5:36 PM CDT) Anatomical Region Laterality Modality Head and Neck N/A Magnetic Resonan ce 01/26/2018 9:31 AM CDT Impressions 01/26/2018 9:32 AM CDT NO EVIDENCE OF ACUTE INTRACRANIAL EVENT. Electronically signed by: Samson Fulton M.D. Narrative 01/26/2018 9:32 AM CDT MRI BRAIN WO CONTRAST HISTORY: Focal neuro deficit, > 6 hrs, stroke suspected. ??Acute cerebrovascular accident. TECHNIQUE: Noncontrast imaging was performed using axial and sagittal FLAIR, axial T1, T2 and diffusion-weighted sequences. COMPARISON: CT 01/25/2018 FINDINGS: The carney and white matter demonstrate normal morphology and signal characteristics. There is no evidence of acute intracranial hemorrhage, mass or infarction. Diffusion-weighted signal is normal throughout the cortical structures. ??The ventricles, gyri and sulci demonstrate normal size and configuration. ??Midline is normal. The extra-axial structures are unremarkable. Procedure Note Samson Fulton MD - 01/26/2018 MRI BRAIN WO CONTRAST HISTORY: Focal neuro deficit, > 6 hrs, stroke suspected. Acute cerebrovascular accident. TECHNIQUE: Noncontrast imaging was performed using axial and sagittal FLAIR, axial T1, T2 and diffusion-weighted sequences. COMPARISON: CT 01/25/2018 FINDINGS: The carney and white matter demonstrate normal morphology and signal characteristics. There is no evidence of acute intracranial hemorrhage, mass or infarction. Diffusion-weighted signal is normal throughout the cortical structures. The ventricles, gyri and sulci demonstrate normal size and configuration. Midline is normal. The extra-axial structures are unremarkable. IMPRESSION: NO EVIDENCE OF ACUTE INTRACRANIAL EVENT. Electronically signed by: Samson Fulton M.D. Cem De DO [facility] [place] MRI PROCEDURES Final R esult * POCT glucose (01/25/2018 12:03 PM CDT) Glucose, POC 134 70 - 199 mg/dL MARY JANE ARNOLD Blood specimen (specimen) 01/25/2018 12:03 PM CDT 01/25/2018 12:03 PM CDT Narrative MARY JANE - 01/25/2018 12:07 PM CDT Cem De DO LAB POCT ORDERABLES - NILESH CE Final Result Performing Organization Address [facility] de Phone Number MARY JANE ARNOLD [phone] [facility] [place] [address] * POCT glucose (01/25/2018 9:24 AM CDT) Glucose, POC 170 70 - 199 mg/dL [facility] Blood specimen (specimen) 01/25/2018 9:24 AM CDT 01/25/2018 9:24 AM CDT Narrative [facility] - 01/25/2018 9:33 AM CDT Cem De DO LAB POCT ORDERABLES - NILESH CE Final Result Performing Organization Address [facility] de Phone Number MARY JANE [address] [place] [address] * POCT glucose (01/25/2018 5:56 AM CDT) Glucose, POC 137 70 - 199 mg/dL [facility] Blood specimen (specimen) 01/25/2018 5:56 AM CDT 01/25/2018 5:56 AM CDT Narrative [facility] - 01/25/2018 5:57 AM CDT Cem De DO LAB POCT ORDERABLES - NILESH CE Final Result Performing Organization Address [facility] de Phone Number MARY JANE ARNOLD [address] [place] [address] * eGFR (01/25/2018 4:16 AM CDT) eGFR 95 mL/min/1.7 3 m2 [facility] Comment: Interpretive Data Reference Interval Normal ?>/= 90 mL/min/1.73m2 Mildly decreased* ? 60 - 89 mL/min/1.73m2 Mildly to moderately decreased ?45 - 59 mL/min/1.73m2 Moderately to severely decreased ??30 - 44 mL/min/1.73m2 Severely decreased ?15 - 29 mL/min/1.73m2 Kidney Failure ?< 15 ??mL/min/1.73m2 *Relative to young adult level If -Gambian multiply value by 1.16. Estimated glomerular filtration [...] was last reviewed 2015. Blood specimen (specimen) 01/25/2018 4:16 AM CDT 01/25/2018 4:32 AM CDT Narrative [facility] - 01/25/2018 4:52 AM CDT Cem De DO LAB BLOOD ORDERABLES Final Result [facility] [id number] [place] [address] * Differential, auto (01/25/2018 4:16 AM CDT) Neutrophil abs 6.0 1.7 - 6.5 K/cumm [facility] Imm gran abs 0.0 0.0 - 0.1 K/cumm [facility] Lymphocyte abs 2.3 0.8 - 3.3 K/cumm [facility] Monocyte abs 0.8 0.2 - 0.8 K/cumm [facility] Eosinophil abs 0.4 0.0 - 0.5 K/cumm [facility] Basophil abs 0.0 0.0 - 0.1 K/cumm [facility] Neutrophil pct 62.7 % [facility] Comment: Interpretive Data Percent cell count reference ranges are not reported, since discordance with absolute values may lead to misinterpretation of CBC data. Current Interpretive Data was last revised on 2017. Imm gran pct 0.5 % [facility] Comment: Interpretive Data Percent cell count reference ranges are not reported, since discordance with absolute values may lead to misinterpretation of CBC data. Current Interpretive Data was last revised on 2017. Lymphocyte pct 24.4 % [facility] Comment: Interpretive Data Percent cell count reference ranges are not reported, since discordance with absolute values may lead to misinterpretation of CBC data. Current Interpretive Data was last revised on 2017. Monocyte pct 7.9 % [facility] Comment: Interpretive Data Percent cell count reference ranges are not reported, since discordance with absolute values may lead to misinterpretation of CBC data. Current Interpretive Data was last revised on 2017. Eosinophil pct 4.1 % [facility] Comment: Interpretive Data Percent cell count reference ranges are not reported, since discordance with absolute values may lead to misinterpretation of CBC data. Current Interpretive Data was last revised on 2017. Basophil pct 0.4 % [facility] Comment: Interpretive Data Percent cell count reference ranges are not reported, since discordance with absolute values may lead to misinterpretation of CBC data. Current Interpretive Data was last revised on 2017. Blood specimen (specimen) 01/25/2018 4:16 AM CDT 01/25/2018 4:33 AM CDT Narrative MARY JANE - 01/25/2018 4:41 AM CDT Cem De DO LAB BLOOD ORDERABLES Final Result MARY JANE [id number] [place] [address] * (ABNORMAL) CBC with auto differential (01/25/2018 4:16 AM CDT) WBC 9.5 3.8 - 9.9 K/cumm MARY JANE Hgb 11.8(L) 11.9 - 15.5 g/dL MARY JANE Hct 38.5 35.6 - 45.5 % [facility] Plt 307 150 - 400 K/cumm [facility] CH MPV 9.9 9.1 - 12.3 fL [facility] RBC 4.36 3.90 - 5.20 M/cumm [facility] MCV 88.3 81.3 - 96.4 fL [facility] MCH 27.1 27.1 - 33.3 pg [facility] MCHC 30.6(L) 32.3 - 35.7 g/dL [facility] CH RDW CV 14.4 11.1 - 14.9 % [facility] CH RDW SD 46.5 35.7 - 48.1 fL [facility] NRBC abs 0.00 0.00 - 0.01 K/cumm [facility] Blood specimen (specimen) 01/25/2018 4:16 AM CDT 01/25/2018 4:33 AM CDT Narrative [facility] - 01/25/2018 4:41 AM CDT Cem De LAB BLOOD ORDERABLES Final Result [facility] [id number] Department of Laboratories [place] [id number] * Basic metabolic panel (01/25/2018 4:16 AM CDT) Sodium 136 135 - 145 mmol/L [facility] Potassium, pl 4.3 3.5 - 5.1 mmol/L [facility] Chloride 104 100 - 114 mmol/L [facility] CO2 25 22 - 32 mmol/L [facility] Anion gap 11 8 - 16 mmol/L [facility] BUN 21 8 - 24 mg/dL [facility] Creatinine 0.66 0.60 - 1.30 mg/dL [facility] Glucose 155 70 - 199 mg/dL [facility] Comment: Interpretive Data Fasting glucose >/= 126 [...] interpretive data was last revised 2017. Calcium 9.4 8.4 - 10.5 mg/dL [facility] Blood specimen (specimen) 01/25/2018 4:16 AM CDT 01/25/2018 4:32 AM CDT Narrative [facility] - 01/25/2018 4:52 AM CDT [facility] BLOOD ORDERABLES Final Result Performing Organization Address City/[facility]/ZIP Co de Phone Number MARY JANE CATALINA [address] [facility] [place] [address] * POCT glucose (01/25/2018 3:25 AM CDT) Glucose, POC 136 70 - 199 mg/dL [facility] Blood specimen (specimen) 01/25/2018 3:25 AM CDT 01/25/2018 3:25 AM CDT Narrative [facility] - 01/25/2018 3:26 AM CDT [facility] POCT ORDERABLES - NILESH CE Final Result Performing Organization Address [facility] Co de Phone Number BCPUJA [address] [address] [facility] [place] [address] * POCT glucose (01/24/2018 9:02 PM CDT) Glucose, POC 181 70 - 199 mg/dL [facility] Blood specimen (specimen) 01/24/2018 9:02 PM CDT 01/24/2018 9:02 PM CDT Narrative CERNER - 01/24/2018 9:05 PM CDT [facility] POCT ORDERABLES - NILESH CE Final Result Performing Organization Address [facility] Co de Phone Number MARY JANE ARNOLD [address] [facility] [place] [address] * POCT glucose (01/24/2018 5:13 PM CDT) Glucose, POC 123 70 - 199 mg/dL [facility] Blood specimen (specimen) 01/24/2018 5:13 PM CDT 01/24/2018 5:13 PM CDT Narrative [facility] CH - 01/24/2018 5:36 PM CDT [facility] POCT ORDERABLES - NILESH CE Final Result Performing Organization Address [facility] Co de Phone Number MARY JANE ARNOLD [address] [place] [address] * POCT glucose (01/24/2018 11:19 AM CDT) Glucose, POC 141 70 - 199 mg/dL [facility] Blood specimen (specimen) 01/24/2018 11:19 AM CDT 01/24/2018 11:19 AM CDT Narrative [facility] - 01/24/2018 11:[address] [facility] Kareem Santino [facility] POCT ORDERABLES - NILESH CE Final Result Performing Organization Address [facility] de Phone Number MARY JANE ARNOLD [address] [place] [address] * (ABNORMAL) POCT glucose (01/24/2018 8:16 AM CDT) Glucose, POC 203(H) 70 - 199 mg/dL [facility] Blood specimen (specimen) 01/24/2018 8:16 AM CDT 01/24/2018 8:16 AM CDT Narrative [facility] CH - 01/24/2018 8:[address] [facility] Kareem Santino [facility] POCT ORDERABLES - NILESH CE Final Result MARY JANE ARNOLD [address] [place] [address] * eGFR (01/24/2018 6:29 AM CDT) eGFR 99 mL/min/1.7 3 m2 MARY JANE Comment: Interpretive Data Reference Interval Normal ?>/= 90 mL/min/1.73m2 Mildly decreased* ? 60 - 89 mL/min/1.73m2 Mildly to moderately decreased ?45 - 59 mL/min/1.73m2 Moderately to severely decreased ??30 - 44 mL/min/1.73m2 Severely decreased ?15 - 29 mL/min/1.73m2 Kidney Failure ?< 15 ??mL/min/1.73m2 *Relative to young adult level If -Gambian multiply value by 1.16. Estimated glomerular filtration [...] was last reviewed 2015. Blood specimen (specimen) 01/24/2018 6:29 AM CDT 01/24/2018 6:43 AM CDT Narrative MARY JANE - 01/24/2018 7:10 AM CDT us Britney Zavala CHILD CARE PROVIDER LAB BLOOD ORDERABLES Deann l Result Performing Organization Address [facility] Co de Phone Number MARY JANE ARNOLD [address] [place] [address] * (ABNORMAL) Differential, auto (01/24/2018 6:29 AM CDT) Neutrophil abs 6.7(H) 1.7 - 6.5 K/cumm [facility] Imm gran abs 0.0 0.0 - 0.1 K/cumm [facility] Lymphocyte abs 2.5 0.8 - 3.3 K/cumm [facility] Monocyte abs 0.8 0.2 - 0.8 K/cumm [facility] Eosinophil abs 0.4 0.0 - 0.5 K/cumm [facility] Basophil abs 0.0 0.0 - 0.1 K/cumm [facility] Neutrophil pct 64.1 % [facility] Comment: Interpretive Data Percent cell count reference ranges are not reported, since discordance with absolute values may lead to misinterpretation of CBC data. Current Interpretive Data was last revised on 2017. Imm gran pct 0.3 % [facility] Comment: Interpretive Data Percent cell count reference ranges are not reported, since discordance with absolute values may lead to misinterpretation of CBC data. Current Interpretive Data was last revised on 2017. Lymphocyte pct 23.7 % [facility] Comment: Interpretive Data Percent cell count reference ranges are not reported, since discordance with absolute values may lead to misinterpretation of CBC data. Current Interpretive Data was last revised on 2017. Monocyte pct 7.5 % [facility] Comment: Interpretive Data Percent cell count reference ranges are not reported, since discordance with absolute values may lead to misinterpretation of CBC data. Current Interpretive Data was last revised on 2017. Eosinophil pct 4.1 % [facility] Comment: Interpretive Data Percent cell count reference ranges are not reported, since discordance with absolute values may lead to misinterpretation of CBC data. Current Interpretive Data was last revised on 2017. Basophil pct 0.3 % [facility] Comment: Interpretive Data Percent cell count reference ranges are not reported, since discordance with absolute values may lead to misinterpretation of CBC data. Current Interpretive Data was last revised on 2017. Blood specimen (specimen) 01/24/2018 6:29 AM CDT 01/24/2018 6:43 AM CDT [facility] - 01/24/2018 6:47 AM CDT us Britney Zavala CHILD CARE PROVIDER LAB BLOOD ORDERABLES Deann bowman Result [facility] [address] [place] [address] * (ABNORMAL) Comprehensive metabolic panel (01/24/2018 6:29 AM CDT) Sodium 131(L) 135 - 145 mmol/L [facility] CH Potassium, pl 3.8 3.5 - 5.1 mmol/L [facility] Chloride 100 100 - 114 mmol/L [facility] CO2 26 22 - 32 mmol/L [facility] Anion gap 9 8 - 16 mmol/L [facility] BUN 14 8 - 24 mg/dL [facility] Creatinine 0.59(L) 0.60 - 1.30 mg/dL [facility] Glucose 137 70 - 199 mg/dL [facility] Comment: [...] - 10.5 mg/dL [facility] Bilirubin, total 1.00 0.10 - 1.30 mg/dL [facility] CH Protein, pl 7.0 6.0 - 8.3 g/dL [facility] Albumin 2.9(L) 3.2 - 4.8 g/dL [facility] Alk phos 67 30 - 110 Units/L [facility] ALT 15 1 - 45 Units/L [facility] AST 17 7 - 40 Units/L [facility] Blood specimen (specimen) 01/24/2018 6:29 AM CDT 01/24/2018 6:43 AM CDT Narrative [facility] - 01/24/2018 7:10 AM CDT Britney Zavala CHILD CARE PROVIDER LAB BLOOD ORDERABLES Deann l Result MARY JANE ARNOLD [address] [employer] [place], [place] [id number] * (ABNORMAL) CBC with auto differential (01/24/2018 6:29 AM CDT) WBC 10.4(H) 3.8 - 9.9 K/cumm [facility] Hgb 11.6(L) 11.9 - 15.5 g/dL [facility] Hct 37.0 35.6 - 45.5 % [facility] Plt 315 150 - 400 K/cumm [facility] MPV 9.7 9.1 - 12.3 fL [facility] RBC 4.23 3.90 - 5.20 M/cumm [facility] MCV 87.5 81.3 - 96.4 fL [facility] MCH 27.4 27.1 - 33.3 pg [facility] MCHC 31.4(L) 32.3 - 35.7 g/dL [facility] RDW CV 14.5 11.1 - 14.9 % [facility] RDW SD 45.7 35.7 - 48.1 fL [facility] NRBC abs 0.00 0.00 - 0.01 K/cumm [facility] Blood specimen (specimen) 01/24/2018 6:29 AM CDT 01/24/2018 6:43 AM CDT Narrative [facility] - 01/24/2018 6:47 AM CDT Britney Zavala CHILD CARE PROVIDER LAB BLOOD ORDERABLES Deann l Result MARY JANE ARNOLD [address] Department [employer] [place], [place] [id number] * (ABNORMAL) Lipid panel (01/24/2018 6:29 AM CDT) Cholesterol 161 30 - 199 mg/dL [facility] Comment: Interpretive Data Ages < or = [...] Interpretive Data was last revised on 2017. Triglycerides 121 <=149 mg/dL MARY JANE ARNOLD Comment: Interpretive Data Ages < or = [...] Interpretive Data was last revised on 2017. HDL 36(L) >=40 mg/dL MARY JANE ARNOLD Comment: Interpretive Data Ages < or = [...] Interpretive Data was last revised on 2017. LDL, calculated 101 <=129 mg/dL [facility] Comment: Interpretive Data Ages < or = [...] Interpretive Data was last revised on 2017. Non-HDL Cholesterol 125 mg/dL [facility] Comment: Interpretive Data Ages < or = [...] Interpretive Data was last revised on 2017. Chol/HDL ratio 4 [facility] Blood specimen (specimen) 01/24/2018 6:29 AM CDT 01/24/2018 6:43 AM CDT Narrative [facility] - 01/24/2018 7:10 AM CDT us Britney Zavala CHILD CARE PROVIDER LAB BLOOD ORDERABLES Deann l Result Performing Organization Address [facility] Co de Phone Number MARY JANE ARNOLD [address] [place] [address] * POCT glucose (01/24/2018 6:19 AM CDT) Glucose, POC 123 70 - 199 mg/dL [facility] Blood specimen (specimen) 01/24/2018 6:19 AM CDT 01/24/2018 6:19 AM CDT Narrative [facility] - 01/24/2018 6:31 AM CDT us Cem De DO LAB POCT ORDERABLES - NILESH CE Final Result Performing Organization Address [facility] Co de Phone Number MARY JANE [phone] [place] [address] * POCT glucose (01/24/2018 3:19 AM CDT) Glucose, POC 127 70 - 199 mg/dL [facility] Blood specimen (specimen) 01/24/2018 3:19 AM CDT 01/24/2018 3:19 AM CDT Narrative [facility] - 01/24/2018 3:41 AM CDT us Jsuten Tavarez MD LAB POCT ORDERABLES - DEVICE Fi nal Result Performing Organization Address [facility] Co de Phone Number MARY JANE ARNOLD [address] [place] [address] * POCT glucose (01/23/2018 8:58 PM CDT) Glucose, POC 82 70 - 199 mg/dL [facility] Blood specimen (specimen) 01/23/2018 8:58 PM CDT 01/23/2018 8:58 PM CDT Narrative MARY JANE ARNOLD - 01/23/2018 9:17 PM CDT Justen Tavarez MD LAB POCT ORDERABLES - DEVICE Fi nal Result MARY JANE ARNOLD [address] [place] [address] * XR Chest 1 Vw Portable (01/23/2018 4:58 PM CDT) Anatomical Region Laterality Modality Body, Chest N/A Computed Radiogr aphy 01/23/2018 5:02 PM CDT Impressions 01/23/2018 5:04 PM CDT 1. ??No evidence of active cardiopulmonary disease. 2. ??No change from previous. Electronically signed by: Jimmie Paiz M.D. Narrative 01/23/2018 5:04 PM CDT RESULT: EXAM: ?? XR CHEST 1 VIEW DATE: ?? 01/23/2018 4:35 PM CLINICAL HISTORY: ?? Headache, dizziness and dyspnea. COMPARISON: ?? 12/15/2017 FINDINGS: ?? Portable AP radiograph of the chest was obtained. ??The heart and mediastinum are within normal limits. ??The lungs are well-expanded and clear. ??No bony abnormality is seen. Procedure Note Jimmie Paiz MD - 01/23/2018 RESULT: EXAM: XR CHEST 1 VIEW DATE: 01/23/2018 4:35 PM CLINICAL HISTORY: Headache, dizziness and dyspnea. COMPARISON: 12/15/2017 FINDINGS: Portable AP radiograph of the chest was obtained. The heart and mediastinum are within normal limits. The lungs are well-expanded and clear. No bony abnormality is seen. IMPRESSION: 1. No evidence of active cardiopulmonary disease. 2. No change from previous. Electronically signed by: Jimmie Paiz M.D. Luci MCKEON IMG XR PROCEDURES Final Resul t * (ABNORMAL) Hemoglobin A1c (01/23/2018 4:39 PM CDT) Hgb A1C 7.9(H) 4.0 - 6.0 % MARY JANE Comment: Interpretive Data Hemoglobin A1c ADA Interpretive Guidelines ??<7% ?? Glycemia controlled ??>8% ?? Hyperglycemia, additional action recommended Lizandro Immunochemical Method Current interpretive data was last revised on 2015 Testing performed by: [facility], [place] [address] Estimated Average Glucose 180 mg/dL MARY JANE Comment:Testing performed by : [facility], [place] [address] Blood specimen (specimen) 01/23/2018 4:39 PM CDT 01/24/2018 12:59 PM CDT Narrative MARY JANE - 01/24/2018 2:44 PM CDT Erick Davis MD LAB BLOOD ORDERABLES Final Result [facility] [address] [place] [address] * eGFR (01/23/2018 4:39 PM CDT) eGFR 69 mL/min/1.7 3 m2 MARY JANE Comment: Interpretive Data Reference Interval Normal ?>/= 90 mL/min/1.73m2 Mildly decreased* ? 60 - 89 mL/min/1.73m2 Mildly to moderately decreased ?45 - 59 mL/min/1.73m2 Moderately to severely decreased ??30 - 44 mL/min/1.73m2 Severely decreased ?15 - 29 mL/min/1.73m2 Kidney Failure ?< 15 ??mL/min/1.73m2 *Relative to young adult level If -Gambian multiply value by 1.16. Estimated glomerular filtration [...] was last reviewed 2015. Blood specimen (specimen) 01/23/2018 4:39 PM CDT 01/23/2018 4:44 PM CDT Narrative [facility] - 01/23/2018 5:12 PM CDT us Luci MCKEON LAB BLOOD ORDERABLES Final Re sult [facility] [address] [place] [address] * (ABNORMAL) Differential, auto (01/23/2018 4:39 PM CDT) Neutrophil abs 8.6(H) 1.7 - 6.5 K/cumm [facility] Imm gran abs 0.0 0.0 - 0.1 K/cumm [facility] Lymphocyte abs 2.6 0.8 - 3.3 K/cumm [facility] Monocyte abs 0.8 0.2 - 0.8 K/cumm [facility] Eosinophil abs 0.3 0.0 - 0.5 K/cumm [facility] Basophil abs 0.0 0.0 - 0.1 K/cumm [facility] Neutrophil pct 69.2 % [facility] Comment: Interpretive Data Percent cell count reference ranges are not reported, since discordance with absolute values may lead to misinterpretation of CBC data. Current Interpretive Data was last revised on 2017. Imm gran pct 0.4 % [facility] Comment: Interpretive Data Percent cell count reference ranges are not reported, since discordance with absolute values may lead to misinterpretation of CBC data. Current Interpretive Data was last revised on 2017. Lymphocyte pct 20.6 % [facility] Comment: Interpretive Data Percent cell count reference ranges are not reported, since discordance with absolute values may lead to misinterpretation of CBC data. Current Interpretive Data was last revised on 2017. Monocyte pct 6.8 % [facility] Comment: Interpretive Data Percent cell count reference ranges are not reported, since discordance with absolute values may lead to misinterpretation of CBC data. Current Interpretive Data was last revised on 2017. Eosinophil pct 2.6 % MARY JANE Comment: Interpretive Data Percent cell count reference ranges are not reported, since discordance with absolute values may lead to misinterpretation of CBC data. Current Interpretive Data was last revised on 2017. Basophil pct 0.4 % MARY JANE ARNOLD Comment: Interpretive Data Percent cell count reference ranges are not reported, since discordance with absolute values may lead to misinterpretation of CBC data. Current Interpretive Data was last revised on 2017. Blood specimen (specimen) 01/23/2018 4:39 PM CDT 01/23/2018 4:44 PM CDT Johnathan HINTON - 01/23/2018 4:49 PM CDT Luci Soto MT LAB BLOOD ORDERABLES Final Re sult Performing Organization Address [facility] de Phone Number [facility] [address] [place] [address] * Troponin I (01/23/2018 4:39 PM CDT) Troponin I <0.03 0.00 - 0.14 ng/mL MARY JANE Comment: Interpretive Data Normal: ? 0.00 - 0.14 ng/mL Indeterminate: ?0.15 - 0.50 ng/mL DC / Cardiac Muscle Damage: ? >0.50 ng/mL Current interpretive data was last reviewed 2015 Blood specimen (specimen) 01/23/2018 4:39 PM CDT 01/23/2018 4:44 PM CDT Johnathan HINTON - 01/23/2018 5:17 PM CDT Luci Soto MT LAB BLOOD ORDERABLES Final Re sult MARY JANE ARNOLD [address] [place] [address] * (ABNORMAL) CBC with auto differential (01/23/2018 4:39 PM CDT) WBC 12.4(H) 3.8 - 9.9 K/cumm [facility] Hgb 12.6 11.9 - 15.5 g/dL [facility] Hct 41.3 35.6 - 45.5 % [facility] CH Plt 338 150 - 400 K/cumm [facility] CH MPV 9.5 9.1 - 12.3 fL [facility] CH RBC 4.63 3.90 - 5.20 M/cumm [facility] CH MCV 89.2 81.3 - 96.4 fL [facility] CH MCH 27.2 27.1 - 33.3 pg [facility] CH MCHC 30.5(L) 32.3 - 35.7 g/dL [facility] CH RDW CV 14.6 11.1 - 14.9 % [facility] CH RDW SD 46.5 35.7 - 48.1 fL [facility] NRBC abs 0.00 0.00 - 0.01 K/cumm [facility] Blood specimen (specimen) 01/23/2018 4:39 PM CDT 01/23/2018 4:44 PM CDT Narrative [facility] - 01/23/2018 4:49 PM CDT Luci MCKEON LAB BLOOD ORDERABLES Final Re sult MARY JANE ARNOLD [address] Department of Laboratories [place], [place] [id number] * Comprehensive metabolic panel (01/23/2018 4:39 PM CDT) Sodium 137 135 - 145 mmol/L [facility] Potassium, pl 4.4 3.5 - 5.1 mmol/L [facility] Chloride 102 100 - 114 mmol/L [facility] CO2 28 22 - 32 mmol/L [facility] Anion gap 11 8 - 16 mmol/L [facility] CH BUN 14 8 - 24 mg/dL [facility] Creatinine 0.90 0.60 - 1.30 mg/dL [facility] Glucose 145 70 - 199 mg/dL [facility] Comment: Interpretive Data Fasting glucose >/= 126 [...] interpretive data was last revised 2017. Calcium 10.1 8.4 - 10.5 mg/dL [facility] Bilirubin, total 0.70 0.10 - 1.30 mg/dL [facility] Protein, pl 7.9 6.0 - 8.3 g/dL [facility] Albumin 3.4 3.2 - 4.8 g/dL [facility] Alk phos 72 30 - 110 Units/L [facility] ALT 16 1 - 45 Units/L [facility] AST 18 7 - 40 Units/L [facility] Blood specimen (specimen) 01/23/2018 4:39 PM CDT 01/23/2018 4:44 PM CDT Narrative [facility] [facility] - 01/23/2018 5:12 PM CDT us Luci MCKEON LAB BLOOD ORDERABLES Final Re sult [facility] [id number] [address] Department [place] [address] * ECG 12 lead (01/23/2018 4:32 PM CDT) Patient age 62 years [facility] Interpretation Text SINUS RHYTHMNORMAL ECGPREVIOUS TRACIN01/14/2018 21.25No significant change compared to prior ECG [facility] Comment:Physician Interprete r Dr. Humberto Armas M.D. Ventricular Rate EKG/Min 93 /min [facility] P Wave Duration 99 ms [facility] QRS-Interval (MSEC) 80 ms [facility] MN-Interval (MSEC) 127 ms [facility] QT Interval 339 ms [facility] QTc 396 ms [facility] QTC Interval ms [facility] P Coplay 29 deg [facility] QRS Coplay 24 deg [facility] T Coplay 61 deg [facility] 01/23/2018 4:32 PM CDT us Luci MCKEON ECG ORDERABLES Final Result [facility] * CT Stroke Head WO Contrast (01/23/2018 4:28 PM CDT) Anatomical Region Laterality Modality Head N/A Computed Tomogra phy 01/23/2018 4:29 PM CDT Impressions 01/23/2018 4:32 PM CDT 1. No acute intracranial process. Findings reported by Dr. Restrepo to Dr. Davis on 01/23/2018 at 4:31 PM. Electronically signed by: Brando Restrepo M.D. Narrative 01/23/2018 4:32 PM CDT RESULT: EXAMINATION: CT STROKE HEAD WO CONTRAST HISTORY: Right arm weakness. ??Headache. ??Stroke. TECHNIQUE: Noncontrast CT of the brain was performed with axial images acquired from skull base to vertex. COMPARISON: Head CT dated 11/27/2017. FINDINGS: There are no acute intra- or extra-axial fluid collections. Ventricles are of normal size, shape, and configuration. ??No mass effect or midline shift is present. The basal cisterns are patent. The carney-white matter differentiation is normal. The visualized portions of the orbits, paranasal sinuses, and mastoids are normal. No fractures are identified. Procedure Note Robert Roberts MD - 01/23/2018 RESULT: EXAMINATION: CT STROKE HEAD WO CONTRAST HISTORY: Right arm weakness. Headache. Stroke. TECHNIQUE: Noncontrast CT of the brain was performed with axial images acquired from skull base to vertex. COMPARISON: Head CT dated 11/27/2017. FINDINGS: There are no acute intra- or extra-axial fluid collections. Ventricles are of normal size, shape, and configuration. No mass effect or midline shift is present. The basal cisterns are patent. The carney-white matter differentiation is normal. The visualized portions of the orbits, paranasal sinuses, and mastoids are normal. No fractures are identified. IMPRESSION: 1. No acute intracranial process. Findings reported by Dr. Restrepo to Dr. Davis on 01/23/2018 at 4:31 PM. Electronically signed by: Brando Restrepo M.D. Luci MCKEON IMG CT PROCEDURES Final Resul t * POCT glucose (01/23/2018 4:17 PM CDT) [facility] Signature Glucose, POC 152 70 - 199 mg/dL MARY JANE Blood specimen (specimen) 01/23/2018 4:17 PM CDT 01/23/2018 4:17 PM CDT Narrative MARY JANE - 01/23/2018 4:38 PM CDT Notinfile Unknown LAB POCT ORDERABLES - DEVICE F inal Result MARY JANE [id number] [address] Department of Laboratories [place] [id number] documented in this encounter Visit Diagnoses Diagnosis CVA (cerebral vascular accident) (HCC)- Primary Unspecified cerebral artery occlusion with cerebral infarction Numbness Disturbance of skin sensation Radiculopathy, unspecified spinal region Essential hypertension Unspecified essential hypertension Type 2 diabetes mellitus with neurologic complication, without long-term current use of insulin (HCC) Restless leg syndrome Restless legs syndrome (RLS) 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 Breast CA (HCC) Malignant neoplasm of breast (female), unspecified site Dyslipidemia Other and unspecified hyperlipidemia History of breast cancer Personal history of malignant neoplasm of breast Other chronic pain documented in this encounter Administered Medications Inactive Administered Medications - up to 3 most recent administrations Medication Order MAR Action Action Date Dose Rate Site ALPRAZolam (XANAX) tablet 0.5 mg 0.5 mg, oral, Every 6 hours PRN, anxiety, Starting on Valeri 01/25/18 at 2332 Given 01/26/2018 12:00 AM CDT 0.5 mg atorvastatin (LIPITOR) tablet 20 mg 20 mg, oral, Nightly, First dose on Mon01/24/18 at 2100 Given 01/25/2018 8:50 PM CDT 20 mg Given 01/24/2018 8:59 PM CDT 20 mg cdnbwlwchf-svxhubuqlponc-unqaffss (FIORICET, ESGIC) 50-325-40 mg per tablet 1 tablet 1 tablet, oral, Every 6 hours PRN, headaches, Starting on Valeri 01/25/18 at 2335 Given 01/26/2018 12:00 AM CDT 1 tablet cyclobenzaprine (FLEXERIL) tablet 10 mg 10 mg, oral, 3 times daily, First dose on Mon01/24/18 at 1745 Given 01/26/2018 5:15 PM CDT 10 mg Given 01/26/2018 8:18 AM CDT 10 mg Given 01/25/2018 11:59 PM CDT 10 mg dextrose 50% (concentrated solution) CONCENTRATED solution 25 g 25 g, intravenous, Every 15 min PRN, low blood sugar, blood glucose less than 70 mg/dL, Starting on Mon01/24/18 at 0432, If patient is NPO or unresponsive, give dextrose 50% IV Push over 2 minutes., Indications: HypoglycemiaIndications:Hypoglycemia dextrose oral liquid liquid 15 g 15 g, oral, Every 15 min PRN, low blood sugar, blood glucose less than 70 mg/dL, Starting on Mon01/24/18 at 0432, If patient is alert and able to eat/drink, give 15 gram glucose or one juice (4 fluid ounces) NOT ORANGE JUICE diphenhydrAMINE (BENADRYL) injection 25 mg 25 mg, intravenous, Administer over 1 Minutes, Once, On Mon01/23/18 at 1855, For 1 dose Given 01/23/2018 7:01 PM CDT 25 mg exemestane (AROMASIN) tablet 25 mg 25 mg, oral, Daily after dinner, First dose on Mon01/24/18 at 1830 Given 01/26/2018 5:12 PM CDT 25 mg Given 01/25/2018 6:39 PM CDT 25 mg glucagon injection 1 mg 1 mg, intramuscular, Every 30 min PRN, low blood sugar, blood glucose less than 70 mg/dL, Starting on Mon01/24/18 at 0432, If patient has no IV access and not alert, given Glucagon IM then follow with either oral glucose or IV dextrose treatment., Indications: HypoglycemiaIndications:Hypoglycemia HYDROcodone-acetaminophen (NORCO) 5-325 mg per tablet 1 tablet 1 tablet, oral, Every 4 hours PRN, 1st line for pain, Starting on Mon01/23/18 at 2104, Indications: PainIndications:Pain Given 01/26/2018 6:25 PM CDT 1 tablet Given 01/26/2018 1:37 PM CDT 1 tablet Given 01/26/2018 4:20 AM CDT 1 tablet influenza quadrivalent [id number] (FLULAVAL,FLUARIX) 60 mcg (15 mcg x 4)/0.5 mL vaccine (STANDARD age 6 months and up) 0.5 mL 0.5 mL, intramuscular, Once, On Mon01/24/18 at 0900, For 1 dose Given 01/24/2018 8:23 AM CDT 0.5 mL Right Deltoid insulin glargine (LANTUS) injection 40 Units 40 Units, subcutaneous, Every morning, First dose on Mon01/24/18 at 0900, Do not mix with other insulins Given 01/26/2018 8:18 AM CDT 40 Units Right Lower Abdomen Given 01/25/2018 9:26 AM CDT 40 Units Le ft Lower Abdomen Given 01/24/2018 8:22 AM CDT 40 Units Ri ght Lower Abdomen insulin lispro (HumaLOG) injection 1-2 Units 1-2 Units, subcutaneous, Nightly, First dose on Mon01/24/18 at 2100, Blood Sugar Low Dose PM - PO patients 200 or less No Insulin 201 - 250 1 unit 251 - 299 2 units Greater than 299 Call MD for hyperglycemia management instructions Do NOT hold for NPO status., Indications: Diabetes MellitusIndications:Diabetes Mellitus insulin lispro (HumaLOG) injection 1-3 Units 1-3 Units, subcutaneous, 3 times daily with meals, First dose on Mon01/24/18 at 0800, Blood Sugar Low Dose meal time - PO patients 175 or less No Insulin 176 - 200 1 unit 201 - 250 2 units 251 - 299 3 units Greater than 299 Call MD for hyperglycemia management instructions Do NOT hold for NPO status., Indications: Diabetes MellitusIndications:Diabetes Mellitus Given 01/26/2018 6:17 AM CDT 1 Units Left Upper Arm insulin lispro (HumaLOG) injection 15 Units 15 Units, subcutaneous, 3 times daily with meals, First dose on Mon01/24/18 at 0800, Administer pre-meal doses when pts food tray arrives in room. Do not administer pre-meal doses to NPO patients. Given 01/26/2018 5:15 PM CDT 12 Units Left Lower Abdomen Given 01/26/2018 12:14 PM CDT 12 Units R ight Upper Arm Given 01/26/2018 8:17 AM CDT 15 Units Le ft Lower Abdomen lisinopril (PRINIVIL,ZESTRIL) tablet 20 mg 20 mg, oral, Daily, First dose on Mon01/24/18 at 0900 Given 01/26/2018 8:18 AM CDT 20 mg Given 01/25/2018 9:37 AM CDT 20 mg Given 01/24/2018 8:23 AM CDT 20 mg oxybutynin (DITROPAN) tablet 5 mg 5 mg, oral, Daily after dinner, First dose on Mon01/24/18 at 1830 Given 01/26/2018 5:16 PM CDT 5 mg Given 01/25/2018 6:40 PM CDT 5 mg Given 01/24/2018 5:22 PM CDT 5 mg prochlorperazine (COMPAZINE) injection 5 mg 5 mg, intravenous, Once, On Mon01/23/18 at 1855, For 1 dose Given 01/23/2018 6:59 PM CDT 5 mg rivaroxaban (XARELTO) tablet 20 mg 20 mg, oral, Daily with dinner, First dose on Mon01/24/18 at 1800, Administer doses greater than or equal to 15 mg/day with food; doses of 10 mg/day may be administered without regard to meals. If on heparin infusion, discontinue heparin infusion upon first administration of rivaroxaban., Indications: Venous ThrombosisIndications:Venous Thrombosis Given 01/26/2018 5:16 PM CDT 20 m g Given 01/25/2018 6:40 PM CDT 20 mg Given 01/24/2018 5:21 PM CDT 20 mg rOPINIRole (REQUIP) tablet 5 mg 5 mg, oral, Nightly, First dose on Mon01/23/18 at 2145 Given 01/25/2018 8:42 PM CDT 5 mg Given 01/24/2018 8:59 PM CDT 5 mg Given 01/23/2018 10:08 PM CDT 5 mg documented in this encounter Discontinued Medications Medication Sig Discontinue Reason Start Date End Da te pen needle, diabetic 31 gauge x 5/16 needle As Instructed Other 12/01/2017 01/23/2018 ONETOUCH DELICA LANCETS 33 gauge misc TEST UTD Other 11/09/2017 01/23/2018 ONETOUCH ULTRA2 kit U UTD Other 11/21/2017 01/23/2018 blood glucose diagnostic (ADVANCED GLUC METER TEST STRIP) strip Use as directed Other 11/09/2017 01/23/2018 albuterol HFA (PROVENTIL HFA) 90 mcg/actuation inhaler Inhale 2 puffs. Other 08/15/2017 01/23/2018 blood-glucose meter misc Diagnosis: Diabetes Type 2 Blood testing frequency: 4 times a day Other 11/21/2017 01/23/2018 ciprofloxacin (CIPRO) 500 mg tablet TK 1 T PO BID FOR 5 DAYS Other 10/18/2017 01/23/2018 diazePAM (VALIUM) 5 mg tablet Take 5 mg by mouth. Other 12/04/2017 01/23/2018 docusate sodium (COLACE) 100 mg capsuleIndications:const ipation Take 1 capsule (100 mg total) by mouth 2 (two) times a day. Other 01/01/2018 01/23/2018 furosemide (LASIX) 40 mg tablet Take 40 mg by mouth. Other 11/09/2017 01/23/2018 gabapentin (NEURONTIN) 300 mg capsule TAKE 2 CAPSULE 3 TIMES DAILY Other 05/31/2017 01/23/2018 glimepiride (AMARYL) 1 mg tabletIndications:type 2 diabetes mellitus TK 1 T PO QAM Other 10/17/2017 01/23/2018 guaiFENesin-codeine (GUAITUSS AC) liquid 100-10 mg/5 mL Take 5 mL by mouth. Other 08/13/2017 01/23/2018 LYRICA 75 mg capsule Other 09/15/2017 01/23/2018 ondansetron ODT (ZOFRAN-ODT) 4 mg disintegrating tablet Take 4 mg by mouth. Other 08/28/20172017 sitaGLIPtin-metformin (JANUMET) 50-1,000 mg per tablet 2 times daily. Other 01/23/2018 polyethylene glycol (MIRALAX) 17 gram/dose powder Mix 1 scoop (17 g) in 8 oz of water and drink daily. Duplicate order 08/15/2017 01/23/2018 orphenadrine ER (NORFLEX) 100 mg 12 hr tabletIndications:Muscle Spasm Take 1 tablet (100 mg total) by mouth 2 (two) times a day. Other 01/01/2018 01/23/2018 insulin glargine (LANTUS) 100 unit/mL injection Inject 50 Units under the skin daily. Takes in the morning 01/26/2018 insulin lispro (HumaLOG) 100 unit/mL injection Inject 15 Units under the skin 3 (three) times a day with meals. 11/14/2017 01/26/2018 documented as of this encounter Active and Recently Administered Medications Times are shown in CDT. Scheduled Medication Order 01/24/2018 01/25/2018 01/26/2018 atorvastatin (LIPITOR) tablet 20 mg 20 mg, oral, Nightly, First dose on Mon01/24/18 at 2100 2059 (Given - Provider: Alexandra Henson RN) 2049 (Given - Provider: Patrizia Valdez RN) cyclobenzaprine (FLEXERIL) tablet 10 mg 10 mg, oral, 3 times daily, First dose on Mon01/24/18 at 1745 1722 (Given - Provider: Aislinn Vargas LPN)2058 (Given - Provider: Alexandra Henson RN) 0937 (Given - Provider: Jennifer Costa RN)1839 (Given - Provider: Jennifer Costa RN)2359 (Given - Provider: Patrizia Valdez RN - Comment: scheduled dose too close to the last dose given) 0818 (Given - Provider: Aislinn Vargas LPN)1715 (Given - Provider: Aislinn Vargas LPN) exemestane (AROMASIN) tablet 25 mg 25 mg, oral, Daily after dinner, First dose on Mon01/24/18 at 1830 2100 (Not Given - Provider: Alexandra Henson RN - Reason: Medication not available) 1839 (Given - Provider: Jennifer Costa RN) 1712 (Given - Provider: Aislinn Vargas LPN) influenza quadrivalent [id number] (FLULAVAL,FLUARIX) 60 mcg (15 mcg x 4)/0.5 mL vaccine (STANDARD age 6 months and up) 0.5 mL (COMPLETED) 0.5 mL, intramuscular, Once, On Mon01/24/18 at 0900, For 1 dose 0823 (Given - Provider: Aislinn Vargas LPN) insulin glargine (LANTUS) injection 40 Units 40 Units, subcutaneous, Every morning, First dose on Mon01/24/18 at 0900, Do not mix with other insulins 0822 (Given - Provider: Aislinn Vargas LPN) 0926 (Given - Provider: Jennifer Costa, NURIS) 0818 (Given - Provider: Aislinn Vargas LPN) insulin lispro (HumaLOG) injection 1-2 Units 1-2 Units, subcutaneous, Nightly, First dose on Mon01/24/18 at 2100, Blood Sugar Low Dose PM - PO patients 200 or less No Insulin 201 - 250 1 unit 251 - 299 2 units Greater than 299 Call MD for hyperglycemia management instructions Do NOT hold for NPO status., Indications: Diabetes Mellitus 2101 (Not Given - Provider: Alexandra Henson RN - Reason: Order parameters not met) 2052 (Not Given - Provider: Patrizia Valdez RN - Reason: Order parameters not met) insulin lispro (HumaLOG) injection 1-3 Units 1-3 Units, subcutaneous, 3 times daily with meals, First dose on Mon01/24/18 at 0800, Blood Sugar Low Dose meal time - PO patients 175 or less No Insulin 176 - 200 1 unit 201 - 250 2 units 251 - 299 3 units Greater than 299 Call MD for hyperglycemia management instructions Do NOT hold for NPO status., Indications: Diabetes Mellitus 0832 (Not Given - Provider: Aislinn Vargas LPN - Reason: Order parameters not met)1121 (Not Given - Provider: Aislinn Vargas LPN - Reason: Order parameters not met)1716 (Not Given - Provider: Aislinn Vargas LPN - Reason: Order parameters not met) 0559 (Not Given - Provider: Alexandra Henson RN - Reason: Order parameters not met)1347 (Not Given - Provider: Jennifer Costa RN - Reason: Order parameters not met - Comment: FSBS [phone] (Not Given - Provider: Jennifer Costa RN - Reason: Order parameters not met - Comment: FSBS 85) 0617 (Given - Provider: Patrizia Valdez RN - Comment: [phone] (Not Given - Provider: Aislinn Vargas LPN - Reason: Order parameters not met)1711 (Not Given - Provider: Aislinn Vargas LPN - Reason: Order parameters not met) insulin lispro (HumaLOG) injection 15 Units 15 Units, subcutaneous, 3 times daily with meals, First dose on Mon01/24/18 at 0800, Administer pre-meal doses when pts food tray arrives in room. Do not administer pre-meal doses to NPO patients. 0822 (Given - Provider: Aislinn Vargas LPN)1239 (Given - Provider: Aislinn Vargas LPN)1721 (Given - Provider: Aislinn Vargas LPN) 0655 (Given - Provider: Alexandra Henson RN)1216 (Given - Provider: Jennifer Costa RN)1831 (Given - Provider: Jennifer Costa RN) 0817 (Given - Provider: Aislinn Vargas LPN)1214 (Given - Provider: Aislinn Vargas LPN)1715 (Given - Provider: Aislinn Vagras LPN) lisinopril (PRINIVIL,ZESTRIL) tablet 20 mg 20 mg, oral, Daily, First dose on Mon01/24/18 at 0900 0823 (Given - Provider: Aislinn Vargas LPN) 0937 (Given - Provider: Jennifer Costa RN) 0818 (Given - Provider: Aislinn Vargas LPN) oxybutynin (DITROPAN) tablet 5 mg 5 mg, oral, Daily after dinner, First dose on Mon01/24/18 at 1830 1722 (Given - Provider: Aislinn Vargas LPN) 1840 (Given - Provider: Jennifer Costa RN) 1716 (Given - Provider: Aislinn Vagras LPN) rivaroxaban (XARELTO) tablet 20 mg 20 mg, oral, Daily with dinner, First dose on Mon01/24/18 at 1800, Administer doses greater than or equal to 15 mg/day with food; doses of 10 mg/day may be administered without regard to meals. If on heparin infusion, discontinue heparin infusion upon first administration of rivaroxaban., Indications: Venous Thrombosis 1721 (Given - Provider: Aislinn Vargas LPN) 1840 (Given - Provider: Jennifer Costa RN) 1716 (Given - Provider: Aislinn Vargas LPN) rOPINIRole (REQUIP) tablet 5 mg 5 mg, oral, Nightly, First dose on Mon01/23/18 at 2145 2059 (Given - Provider: Alexandra Henson RN) 2041 (Given - Provider: Patrizia Valdez RN) PRN Medication Order 01/24/2018 01/25/2018 01/26/2018 ALPRAZolam (XANAX) tablet 0.5 mg 0.5 mg, oral, Every 6 hours PRN, anxiety, Starting on Mon01/25/18 at 2332 0000 (Given - Provider: Patrizia Valdez RN) butalbital-acetaminophe n-caffeine (FIORICET, ESGIC) 50-325-40 mg per tablet 1 tablet 1 tablet, oral, Every 6 hours PRN, headaches, Starting on Mon01/25/18 at 2335 0000 (Given - Provider: Patrizia Valdez RN - Comment: aching headache) dextrose 50% (concentrated solution) CONCENTRATED solution 25 g 25 g, intravenous, Every 15 min PRN, low blood sugar, blood glucose less than 70 mg/dL, Starting on Mon01/24/18 at 0432, If patient is NPO or unresponsive, give dextrose 50% IV Push over 2 minutes., Indications: Hypoglycemia dextrose oral liquid liquid 15 g 15 g, oral, Every 15 min PRN, low blood sugar, blood glucose less than 70 mg/dL, Starting on Mon01/24/18 at 0432, If patient is alert and able to eat/drink, give 15 gram glucose or one juice (4 fluid ounces) NOT ORANGE JUICE glucagon injection 1 mg 1 mg, intramuscular, Every 30 min PRN, low blood sugar, blood glucose less than 70 mg/dL, Starting on Mon01/24/18 at 0432, If patient has no IV access and not alert, given Glucagon IM then follow with either oral glucose or IV dextrose treatment., Indications: Hypoglycemia HYDROcodone-acetaminoph en (NORCO) 5-325 mg per tablet 1 tablet 1 tablet, oral, Every 4 hours PRN, 1st line for pain, Starting on Mon01/23/18 at 2104, Indications: Pain 0248 (Given - Provider: Alexandra Henson RN)0620 (Given - Provider: Alexandra Henson RN)1112 (Given - Provider: Aislinn Vargas LPN)1833 (Given - Provider: Aislinn Vargas LPN) 0055 (Given - Provider: Alexandra Henson RN)0554 (Given - Provider: Alexandra Henson RN)1217 (Given - Provider: Jennifer Costa RN)2053 (Given - Provider: Patrizia Valdez RN) 0420 (Given - Provider: Patrizia Valdez RN)1337 (Given - Provider: Aislinn Vargas LPN)1825 (Given - Provider: Aislinn Vargas LPN) documented in this encounter Orders Medications Ordered That Tyler ht Not Have Been Administered Count Last Ordered Date First Ordered Date dextrose 50% (concentrated s olution) CONCENTRATED solution 25 g 1 01/24/2018 dextrose oral liquid liquid 15 g 1 01/25/20 18 glucagon injection 1 mg 1 01/24/2018 insulin lispro (HumaLOG) inj ection 1-2 Units 1 01/24/2018 Lab Orders Without Results Count Last Ordered D ate First Ordered Date POCT GLUCOSE DEVICE 12 01/26/2018 01/26/20 18 Diet Count Last Ordered Date First Orde red Date ADULT DISCHARGE DIET 1 01/26/2018 Nursing Count Last Ordered Date First Orde red Date DISCHARGE ACTIVITY 3 01/26/2018 DISCHARGE CALL PROVIDER 8 01/26/2018 DISCHARGE INSTRUCTIONS 1 01/26/2018 FOLLOW UP PRIMARY PHYSICIAN 1 01/26/2018 FOLLOW UP WITH PROVIDER 4 01/26/2018 Consult Count Last Ordered Date First Orde red Date IP CONSULT TO ORTHOPEDIC SURGERY 1 01/27/20 18 IP CONSULT TO NUTRITION SERVICES 1 01/24/20 18 IV Count Last Ordered Date First Orde red Date SALINE LOCK IV 1 01/23/2018 Admission Count Last Ordered Date First Orde red Date ASSIGN PATIENT STATUS 2 01/25/20182017 CORE MEASURES Count Last Ordered Date First Ord ered Date REASON FOR NO VTE PROPHYLAXIS AT ADMISSION 1 01/23/2018 REASON FOR NOT ADMINISTERING ANTITHROMBOTIC THERAPY BY EOD 2 1 01/23/2018 REASON FOR NOT INITIATING IV THROMBOLYTIC 1 01/23/2018 ADT Patient Update Count Last Ordered Date Firs t Ordered Date ED IP DECISION TO ADMIT 1 01/23/2018 documented in this encounter Care Teams Tire [employer]ancer Relationship Specialty Start Date End Date Justen Gale MD [address] [address] PCP - General 10/09/17 Liu Jerez MD Consulting Physician Gastroenterology 07/28/17 [place] [id number] [place] [address] Consulting Physician Pulmonary Disease 08/03/17 Khris Arthur MD [address] [facility] [address] [place] [address] Medical Oncologist/Animal Science Instructor Medical Oncology 10/23/17 [place] [address] [facility] [address] [place] [address] Surgeon Orthopedic Surgery 10/23/17 [place] [id number] [address] Consulting Physician Pain Management 10/23/17 [place] [id number] [address] Referring Physician General Surgery 01/26/18 [place] [address] [facility] [address] [place] [address] Consulting Physician Neurology 01/26/18 documented as of this encounter
--- OUTSIDE RECORDS SUMMARY | 2024-04-26 04:26 | XMS_ITS | Encounter Summary ---
Author Organization [facility] Healthcare Address [address] [place] [address] Care Team Providers Care Photoengraving Printer Name Role Phone Liu Jerez MD Unavailable Albert Corbin MD Unavailable [phone] Justen Gale MD Primary Care Provider Khris Arthur MD Unavailable [phone] Ko Melendez MD Unavailable [phone] John Paul Moyer MD Unavailable Encounter Details Date Type Department Care Team (Late st Contact Info) Description 12/15/2017 Telephone [facility] [address] [place] [address] Marie Gonzalez RN Social History Tobacco Use Types Packs/Day Years Used Date Smoking Tobacco: Former Smokeless Tobacco: Never Comments:remote tobacco use Alcohol Use Standard Drinks/Week Comments No 0 (1 standard drink = 0.6 oz pur e alcohol) Comments No Sex and Gender Information Value Date Recorded Sex Assigned at Not on file Legal Sex Female 12:24 AM [employer]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 Arthur by fax in the [facility]. However, the patient is a current patient of Dr. Arthur. The referral was emailed to Sakshi LAM and González Marquez MA for Dr. Arthur. From: Marie Gonzalez Sent: Friday, December 15, 2017 9:18 AM To: Sakshi Barrientos ([facility]) <[email or web address]> Cc: González Marquez ([facility]) <[email or web address]> Subject: FW: re: LH Importance: High From: Marie Gonzalez Sent: Friday, December 15, 2017 9:17 AM To: 'Freda Gray (ST)' <[email or web address]> Cc: González Marquez ([facility]) <[email or web address]> Subject: re: LH Importance: High re: Karly Velez 57 Hi ladies, We received a referral on the above patient (referral attached). However, the patient is already a patient of Dr. Arthur. So I am sending you the records/referral. Thank you, Marie Gonzalez RN BSN Nurse Coordinator [facility] [address] [place] [address] [address] Toll free: [phone] Email: [email or web address] documented in this encounter Plan of Treatment Not on file documented as of this encounter Visit Diagnoses Not on filedocumented in this encounter Care Teams Photoengraving Printer Relationship Specialty Start Date End Date Justen Gale MD [address] [place] [address] PCP - General 10/09/17 Liu Jerez MD Consulting Physician Gastroenterology 07/28/17 [place] [address] [address] [facility] [[email or web address] [id number] [place] [address] Consulting Physician Pulmonary Disease 08/03/17 Khris Arthur MD [address] [facility] [address] [place] [address] Medical Oncologist/Ampoule Sealer Medical Oncology 10/23/17 [place] [address] [address] [place] [address] Surgeon Orthopedic Surgery 10/23/17 [place] [address] [address] [place] [address] Consulting Physician Pain Management 10/23/17 documented as of this encounter
--- OUTSIDE RECORDS SUMMARY | 2024-04-26 04:26 | XMS_ITS | Encounter Summary ---
Author Organization [facility] Healthcare Address [address] [place] [address] Care Team Providers Care Telesales Specialist Name Role Phone Liu Jerez MD Unavailable [phone] Albert Corbin MD Unavailable Justen Gale MD Primary Care Provider [phone] Khris Arthur MD Unavailable [phone] Ko Melendez MD Unavailable John Paul Moyer MD Unavailable [phone] Annel Rod MD Unavailable Anali MARSHALL MD, Carlos M. Unavailable [phone] Reason for Visit * Reason Comments Chest Pain Shortness of Breath Palpitations Hyperglycemia Encounter Details Date Type Department Care Team (Late st Contact Info) Description 02/24/2018 12:27 AM CDT - 02/24/2018 5:00 AM CDT Emergency [facility] Emergency Department [address] [place] [address] [place] [address] [facility] [address] [place] [address] Acute cystitis without hematuria (Primary Dx); Chest pain, unspecified type; Hyperglycemia Discharge Disposition: Discharge to home or self care Social History Tobacco Use Types Packs/Day Years Used Date Smoking Tobacco: Former Smokeless Tobacco: Never Comments:remote tobacco use Alcohol Use Standard Drinks/Week Comments No 0 (1 standard drink = 0.6 oz pur e alcohol) Comments No Sex and Gender Information Value Date Recorded Sex Assigned at Not on file Legal Sex Female 12:24 AM 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 Gender Identity Not on file Sexual Orientation Not on file documented as of this encounter Last Filed Vital Signs Vital Sign Reading Time Taken Comments Blood Pressure 125/69 02/24/2018 2:10 AM CDT Pulse 71 02/24/2018 2:10 AM CDT Temperature 36.5 ??C (97.7 ??F) 02/24/2018 12:30 AM C DT Respiratory Rate 24 02/24/2018 2:10 AM CDT Oxygen Saturation 100% 02/24/2018 2:10 AM CDT Inhaled Oxygen Concentration - - Weight 127 kg (279 lb 15.8 oz) 02/24/2018 12:30 AM CDT Height 152.4 cm (5') 02/24/2018 12:30 AM CDT Body Mass Index 54.68 02/24/2018 12:30 AM CDT documented in this encounter Discharge Instructions * Discharge Instructions* Hyacinth Orozco RN - 02/24/2018 4:45 AM CDT * Attachments The following attachments cannot be sent through Care Everywhere. * Diabetes with High Blood Sugar ([place]) * Chest Pain, Uncertain Cause ([place]) * Bladder Infection, Female (Adult) ([place]) documented in this encounter Medications at Time [...] times a day. 10 capsule 02/24/2018 1 nitrofurantoin monohydrate (MACROBID) 100 mg capsule Take 1 capsule (100 mg total) by mouth 2 (two) times a day. 10 capsule 02/24/2018 8 documented in this encounter Discharge Disposition Disposition Code Departure Means Destination Discharge to home or self care documented in this encounter ED Notes * Mariely Wolf RN - 02/24/2018 2:11 AM CDT This RN to bedside to gain new IV and redraw for mint top. IV gained in right chest and lab sent. IF+VF changed to right chest due to #! IV in R AC positional per primary RN Ana Maria. IVF infusing without complications. Pt requesting pain medication for chest pain. * Girish Wilkins MD - 02/24/2018 12:54 AM CDT HPI Chief Complaint Patient presents with ??? Chest Pain ??? Shortness of Breath ??? Palpitations ??? Hyperglycemia (provider at bedside: 12:50 AM 02/24/2018) Karly is a 62 y/o F former smoker with a PMHx of HTN, CVA, PE, DM2, CHF, and thyroid disorder whopresents to the ED for evaluation of elevated blood sugars. Pt reports she received steroid injections in her lower back for chronic pain yesterday. Her sugars have been elevated throughout today buta few hours ago had a reading in the 500's. She called her PMD office and was instructed to give her self insulin. She did this which lowered her sugar to 370 just GREY PERCHER. She has been experiencing lightheadedness, nausea, diffuse abdominal pain, polyuria, and polydipsia. She additionally reports mildCP, SOB, and palpitations. She denies fever, chills, or cough. 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 Dyslipidemia ??? History of breast cancer ??? Other chronic pain ??? CVA (cerebral vascular accident) (CMS/HCC) 01/24/2018 ??? Breast CA (CMS/HCC) 01/24/2018 ??? Anxiety and depression 11/12/2017 ??? Uncontrolled type 2 diabetes mellitus with hyperglycemia, with long-term current use of insulin([facility]) 11/06/2017 ??? Allergy to drug 11/06/2017 ??? Dysuria 10/26/2017 ??? Acute left-sided low back pain with left-sided sciatica 10/23/2017 ??? Type 2 diabetes mellitus with neurologic complication, without long-term current use of insulin([facility]/HCC) 10/23/2017 ??? Essential hypertension 10/23/2017 ??? Long-term current use of opiate analgesic 10/23/2017 ??? Lumbosacral spondylosis without myelopathy 10/23/2017 ??? Radiculopathy, lumbosacral region 10/23/2017 ??? Spinal stenosis of lumbar region without neurogenic claudication 10/23/2017 ??? 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 ??? Type 2 diabetes mellitus with hyperglycemia, without long-term current use of insulin ([facility]) ??? Constipation ??? 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 Cancer of overlapping sites of left female breast (CMS/[facility]) 10/13/2017 ??? Chronic anticoagulation ??? Restless leg [...] Systems Constitutional: Negative for chills and fever. Eyes: Negative for visual disturbance. Respiratory: Positive for shortness of breath. Negative for cough. Cardiovascular: Positive for chest pain and palpitations. Negative for leg swelling. Gastrointestinal: Positive for abdominal pain (diffuse ) and nausea. Negative for diarrhea and vomiting. Endocrine: Positive for polydipsia and polyuria. Genitourinary: Negative for dysuria. Neurological: Negative for weakness and headaches. All other systems reviewed and are negative. Physical Exam ED Triage Vitals [02/24/18 0030] Temp Pulse Resp BP SpO2 36.5 ??C (97.7 ??F) 71 18 115/83 100 % Temp src Heart Rate Source Patient Position BP Location FiO2 (%) Oral Monitor Sitting Right arm -- Physical Exam Constitutional: She is oriented to person, place, and time. No distress. HENT: Head: Normocephalic and atraumatic. Mouth/Throat: Oropharynx is clear and moist. Eyes: Pupils are equal, round, and reactive to light. Conjunctivae and EOM are normal. Neck: Normal range of motion. Neck supple. Cardiovascular: Normal rate, regular rhythm, normal heart sounds and intact distal pulses. No murmur heard. Pulmonary/Chest: Effort normal and breath sounds normal. No respiratory distress. She has no wheezes. She has no rales. Abdominal: Soft. She exhibits no distension. There is no tenderness. There is no rebound and no guarding. Musculoskeletal: Normal range of motion. She exhibits no edema. Neurological: She is alert and oriented to person, place, and time. No apparent neurologic deficit Skin: Skin is warm and dry. Psychiatric: She has a normal mood and affect. Her behavior is normal. Nursing note and vitals reviewed. MDM MDM Number of Diagnoses or Management Options Amount and/or Complexity of Data Reviewed Clinical lab tests: ordered and reviewed Tests in the radiology section of CPT??: ordered and reviewed Tests in the medicine section of CPT??: ordered and reviewed Independent visualization of images, tracings, or specimens: yes Risk of Complications, Morbidity, and/or Mortality Presenting problems: high Diagnostic procedures: high Management options: high Patient Progress Patient progress: stable 62-year-old female history of hypertension, CVA, PE, breast cancer, diabetes CHF who presents with complaint of hyperglycemia. Differential diagnosis includes hyperglycemia, metabolic derangement, dehydration. Less likely ACS,pneumonia. Plan metabolic panel, EKG, chest x-ray, cardiac labs, IV fluid hydration, management of hyperglycemia and reassess. Labs Reviewed POCT GLUCOSE DEVICE - Abnormal Result Value Glucose, POC, bld 354 (*) Narrative: URINALYSIS AND REFLEX TO MICROSCOPIC AND CULTURE CBC WITH AUTO DIFFERENTIAL COMPREHENSIVE METABOLIC PANEL B-TYPE NATRIURETIC PEPTIDE PROTIME-INR POCT GLUCOSE DEVICE XR Chest 1 Vw Portable (Results Pending) BP 115/83 (BP Location: Right arm, Patient Position: Sitting) Pulse 71 Temp 36.5 ??C (97.7 ??F)(Oral) Resp 18 Ht 152.4 cm (5') Wt 127 kg (279 lb 15.8 oz) SpO2 100% BMI 54.68 kg/m?? Procedures Clinical Impression: No diagnosis found. I, Dr. Girish Wilkins MD, have personally performed the services described in the documentation , reviewed the documentation, as recorded by the scribe in my presence, and it accurately and completelyrecords my words and actions. This note is prepared by marly Zapata, in the presence of and for Dr. Girish Wilkins MD. I electronically signed this document at 12:56 AM on 02/24/18 Girish Wilkins MD Resident 02/24/18 0139 * Mariely Wolf RN - 02/24/2018 12:22 AM CDT Pt reports she has had CP , SOB and Heart palpitations since about 222902/23/2018. Pt also reports POC FSBS have been elevated into the 500's today after getting steroid injections in her back. Pt reports she got POC FSBS down to 380 while at home prior to arrival. Pt reports she took 50 units of Lantus and 15 u of Humalog with breakfast, 20 u of Humalog with lunch, 15 u of Humalog with dinner and then called PCP and was instructed to take another 5 U of Humalog about 2230 (all subq) documented in this encounter Miscellaneous Notes * ED Procedure Note - Girish Wilkins MD - 02/24/2018 3:25 AM CDTAssociated Order(s): ECG 12-LEAD Procedure ECG 12 lead Date/Time: 02/24/2018 3:25 AM Performed by: GIRISH WILKINS Authorized by: GIRISH WILKINS Rate: ECG rate: 72 ECG rate assessment: normal Rhythm: Rhythm: sinus rhythm Ectopy: Ectopy: none QRS: QRS axis: Normal QRS intervals: Normal Conduction: Conduction: normal ST segments: ST segments: Normal T waves: T waves: non-specific Interpretation: Interpretation: No significant change Girish Wilkins MD Resident 02/24/18 0325 * ED Procedure Note - Girish Wilkins MD - 02/24/2018 3:17 AM CDTAssociated Order(s): ECG 12-LEAD Procedure ECG 12 lead Date/Time: 02/24/2018 3:17 AM Performed by: GIRISH WILKINS Authorized by: ERICK DAVIS Rate: ECG rate: 76 ECG rate assessment: normal Rhythm: Rhythm: sinus rhythm Ectopy: Ectopy: none QRS: QRS axis: Normal QRS intervals: Normal ST segments: ST segments: Normal T waves: T waves: non-specific and flattening Flattening: V2 Interpretation: Interpretation: non-specific Girish Wilkins MD Resident 02/24/18 0317 documented in this encounter Plan of Treatment Not on file documented as of this encounter Procedures Procedure Name Priority Date/Time Associated Diagnosis Comments URINALYSIS AND REFLEX TO MICROSCOPIC AND CULTURE STAT 02/24/2018 3:22 AM CDT URINALYSIS, MICROSCOPIC ONLY STAT 02/24/2018 3:22 AM CDT URINE CULTURE STAT 02/24/2018 3:22 AM CDT ECG 12-LEAD STAT 02/24/2018 3:20 AM CDT EGFR STAT 02/24/2018 2:05 AM CDT TROPONIN I Add-On 02/24/2018 2:05 AM CDT COMPREHENSIVE METABOLIC PANEL STAT 02/24/2018 2:05 AM CDT XR CHEST 1 VIEW ED 02/24/2018 1:40 AM CDT DIFFERENTIAL AUTO STAT 02/24/2018 12: 58 AM CDT CBC WITH AUTO DIFFERENTIAL STAT 02/24/2018 12:58 AM CDT PROTIME-INR STAT 02/24/2018 12:58 AM CDT B-TYPE NATRIURETIC PEPTIDE STAT 02/24/2018 12:58 AM CDT ECG 12-LEAD STAT 02/24/2018 12:25 AM CDT POCT GLUCOSE DEVICE Routine 02/24/2018 1 2:25 AM CDT documented in this encounter Results * Urine culture (02/24/2018 3:22 AM CDT) Report Final Report: Less than 100,000 colonies/mL (clinically insignificant growth based on current clinical standards) MARY JANE ARNOLD Comment:Testing performed by : [facility], [address], [place]., [address] Organism (CLINICALLY INSIGNIFICANT GROWTH MARY JANE ARNOLD Urine, clean voided 02/24/2018 3:22 AM CDT 02/24/2018 5:12 AM CDT Narrative [facility] - 02/25/2018 7:41 AM 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 Testing performed by [facility] ([phone]) Erick Davis MD LAB MICROBIOLOGY - GENERAL ORDERABLES Final Result Performing Organization Address [facility] de Phone Number MARY JANE [address] Department [place] [address] * (ABNORMAL) Urinalysis, microscopic only (02/24/2018 3:22 AM CDT) WBC, ur 21-50(A) 0 - 5 /HPF [facility] RBC, ur 0-5 0 - 5 /HPF [facility] Mucous, ur Present(A) [facility] Hyaline casts, ur 1-5 0 - 10 /LPF [facility] Urine, clean voided 02/24/2018 3:22 AM CDT 02/24/2018 3:25 AM CDT Narrative [facility] - 02/24/2018 3:34 AM CDT Erick Davis MD LAB URINE ORDERABLES Final Result Performing Organization Address [facility] de Phone Number MARY JANE ARNOLD [address] Department [place] [address] * (ABNORMAL) Urinalysis reflex to microscopic and culture Urine, clean voided (02/24/2018 3:22 AM CDT) Color, ur Yellow Yellow [facility] Clarity, ur Clear Clear [facility] Specific gravity, ur 1.021 1.010 - 1.025 [facility] pH, urine 5.0 [facility] Protein, ur ql Negative Negative [facility] Glucose, ur ql 3+(A) Negative [facility] Ketones, ur Negative Negative [facility] Bilirubin, ur Negative Negative [facility] Blood, ur 2+(A) Negative [facility] Urobilinogen, ur <2.0 <2.0 mg/dL [facility] Nitrite, ur Negative Negative [facility] Leukocyte esterase, ur 1+(A) Negative [facility] Urine, clean voided 02/24/2018 3:22 AM CDT 02/24/2018 3:25 AM CDT [address]ative [facility] - 02/24/2018 3:37 AM CDT ?? Urine pH is affected by diet, medications, systemic acid-base disturbances, and renal tubular function. ??pH may affect urinary stone formation. ??For example, urine pH below 6.0 may help reduce the tendency for calcium phosphate stones and pH greater than 6.0 may reduce the tendency for uric acid stone formation. Source: [facility] [place]. Last revised 05-04-2017 us Erick Davis MD LAB MICROBIOLOGY - GENERAL ORDERABLES Final Result Performing Organization Address [facility] Co de Phone Number [facility] [address] Department [place] [address] * ECG 12 lead (02/24/2018 3:20 AM CDT) Patient age 62 years [facility] Interpretation Text SINUS RHYTHM WITH SINUS ARRHYTHMIANONSPECIFIC T-WAVE ABNORMALITYBORDERLINE ECGPREVIOUS TRACIN01/23/2018 16.32 [facility] Comment:Physician Interprete r Dr. Suleiman Hdz M.D. Ventricular Rate EKG/Min 72 /min [facility] P Wave Duration 108 ms [facility] QRS-Interval (MSEC) 82 ms [facility] PA-Interval (MSEC) 137 ms [facility] QT Interval 387 ms [facility] QTc 408 ms [facility] QTC Interval ms [facility] P [place] 52 deg [facility] QRS [place] 31 deg [facility] T [place] 62 deg [facility] 02/24/2018 3:20 AM CDT us Girish Wilkins MD ECG ORDERABLES Final Result Performing Organization Address [facility] de Phone Number [facility] * Troponin I (02/24/2018 2:05 AM CDT) Troponin I <0.03 0.00 - 0.14 ng/mL MARY JANE Comment: Interpretive Data Normal: ? 0.00 - 0.14 ng/mL Indeterminate: ?0.15 - 0.50 ng/mL [place] / Cardiac Muscle Damage: ? >0.50 ng/mL Current interpretive data was last reviewed 2015 Blood specimen (specimen) 02/24/2018 2:05 AM CDT 02/24/2018 3:16 AM CDT Narrative MARY JANE - 02/24/2018 3:32 AM CDT us Girish Wilkins MD LAB BLOOD ORDERABLES Final Re sult MARY JANE [id number] Department [place] [address] * eGFR (02/24/2018 2:05 AM CDT) eGFR 101 mL/min/1.7 3 m2 MARY JANE Comment: Interpretive Data Reference Interval Normal ?>/= 90 mL/min/1.73m2 Mildly decreased* ? 60 - 89 mL/min/1.73m2 Mildly to moderately decreased ?45 - 59 mL/min/1.73m2 Moderately to severely decreased ??30 - 44 mL/min/1.73m2 Severely decreased ?15 - 29 mL/min/1.73m2 Kidney Failure ?< 15 ??mL/min/1.73m2 *Relative to young adult level If -[place] multiply value by 1.16. Estimated glomerular filtration [...] was last reviewed 2015. Blood specimen (specimen) 02/24/2018 2:05 AM CDT 02/24/2018 2:09 AM CDT Narrative [facility] - 02/24/2018 2:34 AM CDT us Girish Wilkins MD LAB BLOOD ORDERABLES Final Re sult [facility] [address] Department [place] [address] * (ABNORMAL) Comprehensive metabolic panel (02/24/2018 2:05 AM CDT) Sodium 135 135 - 145 mmol/L [facility] Potassium, pl 4.2 3.5 - 5.1 mmol/L [facility] Chloride 106 100 - 114 mmol/L [facility] CO2 24 22 - 32 mmol/L [facility] Anion gap 9 8 - 16 mmol/L [facility] BUN 17 8 - 24 mg/dL [facility] Creatinine 0.55(L) 0.60 - 1.30 mg/dL [facility] Glucose 282(H) 70 - 199 mg/dL [facility] Comment: Interpretive [...] interpretive data was last revised 2017. Calcium 8.6 8.4 - 10.5 mg/dL [facility] Bilirubin, total 0.40 0.10 - 1.30 mg/dL [facility] Protein, pl 6.5 6.0 - 8.3 g/dL [facility] Albumin 2.9(L) 3.2 - 4.8 g/dL [facility] Alk phos 70 30 - 110 Units/L [facility] ALT 18 1 - 45 Units/L [facility] AST 18 7 - 40 Units/L [facility] Blood specimen (specimen) 02/24/2018 2:05 AM CDT 02/24/2018 2:09 AM CDT Narrative MARY JANE - 02/24/2018 2:34 AM CDT us Girish Wilkins MD LAB BLOOD ORDERABLES Final Re sult MARY JANE [address] Department [place] [address] * XR Chest 1 Vw Portable (02/24/2018 [...] IMG XR PROCEDURES Final Re sult * (ABNORMAL) Differential, auto (02/24/2018 12:58 AM CDT) Neutrophil abs 7.4(H) 1.7 - 6.5 K/cumm [facility] Imm gran abs 0.1 0.0 - 0.1 K/cumm [facility] Lymphocyte abs 3.4(H) 0.8 - 3.3 K/cumm [facility] Monocyte abs 1.2(H) 0.2 - 0.8 K/cumm [facility] Eosinophil abs 0.1 0.0 - 0.5 K/cumm [facility] Basophil abs 0.0 0.0 - 0.1 K/cumm [facility] Neutrophil pct 60.4 % [facility] Comment: Interpretive Data Percent cell count reference ranges are not reported, since discordance with absolute values may lead to misinterpretation of CBC data. Current Interpretive Data was last revised on 2017. Imm gran pct 0.5 % [facility] Comment: Interpretive Data Percent cell count reference ranges are not reported, since discordance with absolute values may lead to misinterpretation of CBC data. Current Interpretive Data was last revised on 2017. Lymphocyte pct 28.1 % [facility] Comment: Interpretive Data Percent cell count reference ranges are not reported, since discordance with absolute values may lead to misinterpretation of CBC data. Current Interpretive Data was last revised on 2017. Monocyte pct 10.1 % [facility] Comment: Interpretive Data Percent cell count reference ranges are not reported, since discordance with absolute values may lead to misinterpretation of CBC data. Current Interpretive Data was last revised on 2017. Eosinophil pct 0.6 % [facility] Comment: Interpretive Data Percent cell count reference ranges are not reported, since discordance with absolute values may lead to misinterpretation of CBC data. Current Interpretive Data was last revised on 2017. Basophil pct 0.3 % [facility] Comment: Interpretive Data Percent cell count reference ranges are not reported, since discordance with absolute values may lead to misinterpretation of CBC data. Current Interpretive Data was last revised on 2017. Blood specimen (specimen) 02/24/2018 12:58 AM CDT 02/24/2018 1:00 AM CDT Narrative [facility] - 02/24/2018 1:02 AM CDT Erick Davis MD LAB BLOOD ORDERABLES Final Result Performing Organization Address [facility] Co de Phone Number MARY JANE ARNOLD [address] [facility] [place] [address] * (ABNORMAL) Protime-INR (02/24/2018 12:58 AM CDT) Pathologist [facility] PT 17.0(H) 9.5 - 13.0 sec [facility] INR 1.49(H) 0.90 - 1.20 [facility] Blood specimen (specimen) 02/24/2018 12:58 AM CDT 02/24/2018 1:00 AM CDT Narrative [facility] - 02/24/2018 1:08 AM CDT Erick Davis MD LAB BLOOD ORDERABLES Final Result Performing Organization Address [facility] de Phone Number BCPUJA ARNOLD [address] [facility] [place] [address] * B-type natriuretic peptide (02/24/2018 12:58 AM CDT) Pathologist [facility] B-Type Natriuretic Peptide (BNP) 47 0 - 100 pg/mL [facility] Blood specimen (specimen) 02/24/2018 12:58 AM CDT 02/24/2018 1:00 AM CDT Narrative [facility] - 02/24/2018 1:24 AM CDT Erick Davis MD LAB BLOOD ORDERABLES Final Result Performing Organization Address [facility] de Phone Number BCPUJA ARNOLD [address] Department [place] [address] * (ABNORMAL) CBC with auto differential (02/24/2018 12:58 AM CDT) WBC 12.3(H) 3.8 - 9.9 K/cumm [facility] Hgb 11.4(L) 11.9 - 15.5 g/dL [facility] Hct 37.4 35.6 - 45.5 % [facility] Plt 324 150 - 400 K/cumm [facility] MPV 10.5 9.1 - 12.3 fL [facility] RBC 4.24 3.90 - 5.20 M/cumm [facility] MCV 88.2 81.3 - 96.4 fL [facility] MCH 26.9(L) 27.1 - 33.3 pg [facility] MCHC 30.5(L) 32.3 - 35.7 g/dL [facility] RDW CV 14.7 11.1 - 14.9 % [facility] RDW SD 47.4 35.7 - 48.1 fL [facility] NRBC abs 0.00 0.00 - 0.01 K/cumm [facility] Blood specimen (specimen) 02/24/2018 12:58 AM CDT 02/24/2018 1:00 AM CDT Narrative [facility] - 02/24/2018 1:02 AM CDT us Erick Davis MD LAB BLOOD ORDERABLES Final Result Performing Organization Address City/State/[facility] Co de Phone Number [facility] [address] Department [place] [address] * ECG 12 lead (02/24/2018 12:25 AM CDT) Patient age 62 years [facility] Interpretation Text SINUS RHYTHMNORMAL ECGPREVIOUS TRACIN01/23/2018 16.32 [facility] Comment:Physician Interprete r Dr. Suleiman Hdz M.D. Ventricular Rate EKG/Min 76 /min [facility] P Wave Duration 108 ms [facility] QRS-Interval (MSEC) 82 ms [facility] PA-Interval (MSEC) 129 ms [facility] QT Interval 356 ms [facility] QTc 384 ms [facility] QTC Interval ms [facility] P [place] 28 deg [facility] QRS [place] 41 deg [facility] T [place] 65 deg [facility] 02/24/2018 12:2 5 AM CDT Erick Davis MD ECG ORDERABLES Final Resu lt [facility] * (ABNORMAL) POCT glucose (02/24/2018 12:25 AM CDT) Glucose, POC 354(H) 70 - 199 mg/dL MARY JANE Blood specimen (specimen) 02/24/2018 12:25 AM CDT 02/24/2018 12:25 AM CDT Narrative MARY JANE ARNOLD - 02/24/2018 12:26 AM CDT Notinfile Unknown LAB POCT ORDERABLES - DEVICE F inal Result Performing Organization Address City/[facility]/ZIP Co de Phone Number [facility] [address] Department [place] [address] documented in this encounter Visit Diagnoses Diagnosis Acute cystitis without hematuria- Primary Chest pain, unspecified type Hyperglycemia Other abnormal glucose documented in this encounter Administered Medications Inactive Administered Medications - up to 3 most recent administrations Medication Order MAR Action Action Date Dose Rate Site acetaminophen (TYLENOL) tablet 1,000 mg 1,000 mg, oral, Once, On 02/24/18 at 0214, For 1 dose Given 02/24/2018 2:18 AM CDT 1,000 mg ondansetron (ZOFRAN) injection 4 mg 4 mg, intravenous, Once, On 02/24/18 at 0101, For 1 dose Given 02/24/2018 1:07 AM CDT 4 mg sodium chloride 0.9% bolus 1,000 mL 1,000 mL, intravenous, at 1,000 mL/hr, Administer over 1 Hours, Once, On 02/24/18 at 0101, For 1 dose New Bag 02/24/2018 1:04 AM CDT 1,000 mL 100 0 mL/hr documented in this encounter Discontinued Medications Medication Sig Discontinue Reason Start Date End Da te nitrofurantoin monohydrate (MACROBID) 100 mg capsule Take 1 capsule (100 mg total) by mouth 2 (two) times a day. 02/24/2018 02/24/2018 documented as of this encounter Active and Recently Administered Medications Times are shown in CDT. Scheduled Medication Order 02/22/2018 02/23/2018 02/24/2018 acetaminophen (TYLENOL) tablet 1,000 mg (COMPLETED) 1,000 mg, oral, Once, On 02/24/18 at 0214, For 1 dose 0218 (Given - Provid er: Anais Alicea RN) ibuprofen (ADVIL,MOTRIN) tablet 600 mg 600 mg, oral, Once, On 02/24/18 at 0325, For 1 dose 0325 (Due) ondansetron (ZOFRAN) injection 4 mg (COMPLETED) 4 mg, intravenous, Once, On 02/24/18 at 0101, For 1 dose 0107 (Given - Provid er: Anais Alicea RN) sodium chloride 0.9% bolus 1,000 mL (COMPLETED) 1,000 mL, intravenous, at 1,000 mL/hr, Administer over 1 Hours, Once, On 02/24/18 at 0101, For 1 dose 0104 (New Bag - Prov ider: Anais Alicea RN)0204 (Stopped - Provider: Anais Alicea RN) documented in this encounter Orders Medications Ordered That Tyler ht Not Have Been Administered Count Last Ordered Date First Ordered Date ibuprofen (ADVIL,MOTRIN) tablet 600 mg 1 sodium chloride 0.9% bolus 1,000 mL 1 02/24 Lab Orders Without Results Count Last Ordered D ate First Ordered Date POCT GLUCOSE DEVICE 1 02/24/2018 Nursing Count Last Ordered Date First Orde red Date CARDIO RESPIRATORY MONITORING 1 02/24/2018 CONTINUOUS PULSE OXIMETRY 1 02/24/2018 IV Count Last Ordered Date First Orde red Date INSERT PERIPHERAL IV 1 02/24/2018 SALINE LOCK IV 1 02/24/2018 documented in this encounter Care Teams Telesales Specialist Relationship Specialty Start Date End Date Justen Gale MD [address] [address] PCP - General 10/09/17 Liu Jerez MD Consulting Physician Gastroenterology 07/28/17 [place] [address] [facility] [address] [place] [address] Consulting Physician Pulmonary Disease 08/03/17 Khris Arthur MD [address] [facility] [address] [place] [address] Medical Oncologist/Coin Machine Collector Medical Oncology 10/23/17 [place] [address] [facility] [address] [place] [address] Surgeon Orthopedic Surgery 10/23/17 [place] [address] [facility] [address] [place] [address] Consulting Physician Pain Management 10/23/17 [place] [address] [facility] [address] [place] [address] Referring Physician General Surgery 01/26/18 [place] [address] [facility] [address] [place] [address] Consulting Physician Neurology 01/26/18 documented as of this encounter
--- OUTSIDE RECORDS SUMMARY | 2024-04-26 04:26 | XMS_ITS | Encounter Summary ---
Author Organization [facility] Address [address] [place] [address] Phone Care Team Providers Care Ep Tech Name Role Phone Liu Jerez MD Unavailable [phone] Albert Corbin MD Unavailable [phone] Justen Gale MD Primary Care Provider Khris Arthur MD Unavailable [phone] Ko Melendez MD Unavailable John Paul Moyer MD Unavailable Encounter Details Date Type Department Care Team (Late st Contact Info) Description 12/18/2017 Orders Only [facility] Oncology [address] 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 Gender Identity Not on file Sexual Orientation Not on file documented as of this encounter Plan of Treatment Not on file documented as of this encounter Visit Diagnoses Diagnosis Malignant neoplasm of overlapping sites of left female breast, unspecified estrogen receptor status (HCC)- Primary documented in this encounter Care Teams Ep Tech Relationship Specialty Start Date End Date Justen Gale MD [address] [address] PCP - General 10/09/17 Liu Jerez MD Consulting Physician Gastroenterology 07/28/17 [place] [address] [address] [facility] [address] [place] [address] Consulting Physician Pulmonary Disease 08/03/17 [place] [address] [place] [address] [address] [place] [address] Medical Oncologist/Town Justice Medical Oncology 10/23/17 [place] [address] [facility] [address] [place] [address] Surgeon Orthopedic Surgery 10/23/17 [place] [address] [address] [facility] [address] [place] [address] Consulting Physician Pain Management 10/23/17 documented as of this encounter
--- OUTSIDE RECORDS SUMMARY | 2024-04-26 04:26 | XMS_ITS | Encounter Summary ---
Author Organization [facility] Address [address] [place] [address] Phone Care Team Providers Care Hand Tufter Name Role Phone Liu Jerez MD Unavailable [phone] Albert Corbin MD Unavailable [phone] Justen Gale MD Primary Care Provider [phone] Khris Arthur MD Unavailable [phone] Ko Melendez MD Unavailable [phone] John Paul Moyer MD Unavailable Reason for Visit * Oncology (Routine) - Closed Specialty Diagnoses / Procedures Referred By Contkristina t Referred To Contact Lab Diagnoses #C,,, Procedures ARM DRAW Khris Arthur MD Phone: tel: fax: [facility] Oncology [address] [facility] 7th [place] [address] [place] [address] Phone: tel: Referral ID Status Reason Start Date Expiration Date V isits Requested Visits Authorized [id number] Closed Specialty Services Required 12/14/2017 06/12/2018 12 12 Encounter Details Date Type Department Care Team (Late st Contact Info) Description 01/16/2018 2:30 PM CDT Lab [facility] Oncology [address] [facility] 7th [place] [address] [place] [address] Khris Arthur MD [address] [facility] [address] [place] [address] Malignant neoplasm of overlapping sites of left [...] on file 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 Gender Identity Not on file Sexual Orientation Not on file documented as of this encounter Discharge Disposition Disposition Code Departure Means Destination Discharge to home or self care documented in this encounter Plan of Treatment Not on file documented as of this encounter Procedures Procedure Name Priority Date/Time Associated Diagnosis Comments COMPREHENSIVE METABOLIC PANEL STAT 01/16/2018 3:10 PM CDT Malignant neoplasm of overlapping sites of left female breast, unspecified estrogen receptor status (CMS/HCC) DIFFERENTIAL AUTO Routine 01/16/2018 3:0 2 PM CDT Malignant neoplasm of overlapping sites of left female breast, unspecified estrogen receptor status (CMS/HCC) CBC WITH AUTO DIFFERENTIAL Routine 01/16/2018 3:02 PM CDT Malignant neoplasm of overlapping sites of left female breast, unspecified estrogen receptor status (CMS/HCC) documented in this encounter Results * (ABNORMAL) Comprehensive metabolic panel (01/16/2018 3:10 PM CDT) Sodium 139 135 - 145 mmol/L [facility] Potassium, pl 4.2 3.3 - 4.9 mmol/L [facility] Chloride 101 97 - 110 mmol/L [facility] CO2 28 22 - 32 mmol/L [facility] Anion gap 10 2 - 15 mmol/L [facility] BUN 14 8 - 25 mg/dL [facility] Creatinine 0.72 0.60 - 1.10 mg/dL [facility] Glucose 116 70 - 199 mg/dL [facility] Comment: Interpretive Data Fasting glucose [...] interpretive data was last revised 2017. Calcium 10.6(H) 8.5 - 10.3 mg/dL [facility] Bilirubin, total 0.6 0.1 - 1.2 mg/dL [facility] Protein, pl 8.5 6.5 - 8.5 g/dL [facility] Albumin 4.0 3.5 - 5.0 g/dL [facility] Alk phos 92 40 - 130 Units/L [facility] ALT 19 7 - 45 Units/L [facility] AST 22 10 - 45 Units/L [facility] Blood specimen (specimen) 01/16/2018 3:10 PM CDT 01/16/2018 3:34 PM CDT Narrative [facility] - 01/16/2018 4:20 PM CDT us Khris Arthur MD LAB BLOOD ORDERABLES Final Result [facility] [place] [address] * (ABNORMAL) Differential, auto (01/16/2018 3:02 PM CDT) Neutrophil abs 8.8(H) 1.8 - 6.6 K/cumm [facility] Comment:Testing performed by : [facility], [address] [place] [phone] Lymphocyte abs 2.9 1.2 - 3.3 K/cumm [facility] Comment:Testing performed by : [facility], [address] [place] [phone] Monocyte abs 1.0 0.2 - 1.2 K/cumm [facility] Comment:Testing performed by : [facility], [address] [place] [phone] Eosinophil abs 0.3 0.0 - 0.5 K/cumm [facility] Comment:Testing performed by : [facility], [address] [place] [phone] Basophil abs 0.1 0.0 - 0.2 K/cumm [facility] Comment:Testing performed by : [facility], [address] [place] [phone] Neutrophil pct 67.2 % [facility] Comment: Interpretive Data Percent cell count reference ranges are not reported, since discordance with absolute values may lead to misinterpretation of CBC data. Current Interpretive Data was last revised on 2017. Testing performed by: [facility], [address] [place] [phone] Lymphocyte pct 22.3 % [facility] Comment: Interpretive Data Percent cell count reference ranges are not reported, since discordance with absolute values may lead to misinterpretation of CBC data. Current Interpretive Data was last revised on 2017. Testing performed by: [facility], [address] [place] [phone] Monocyte pct 7.4 % [facility] Comment:Testing performed by : [facility], [address] [place] [phone] Eosinophil pct 2.5 % [facility] Comment:Testing performed by : [facility], [address] [place] [phone] Basophil pct 0.6 % [facility] Comment:Testing performed by : [facility], [address] [place] [phone] Blood specimen (specimen) 01/16/2018 3:02 PM CDT 01/16/2018 3:06 PM CDT Narrative [facility] - 01/16/2018 3:09 PM CDT Khris Arthur MD LAB BLOOD ORDERABLES Final Result [facility] [place] [address] * (ABNORMAL) CBC with auto differential (01/16/2018 3:02 PM CDT) WBC 13.0(H) 3.8 - 9.8 K/cumm [facility] Comment:Testing performed by : [facility], [address] [place] [phone] Hgb 12.8 12.1 - 15.1 g/dL [facility] Comment:Testing performed by : [facility], [address] [place] [phone] Hct 39.3 36.1 - 44.3 % [facility] Comment:Testing performed by : [address] [phone] Plt 368 140 - 440 K/cumm [facility] Comment:Testing performed by : [address] [address] MPV 7.4 6.8 - 10.4 fL [facility] Comment:Testing performed by : [facility], [address] [place] [phone] RBC 4.68 3.90 - 5.00 M/cumm [facility] Comment:Testing performed by : [address] [address] MCV 83.9 80.0 - 97.6 fL [facility] Comment:Testing performed by : [address] [phone] MCH 27.3 26.7 - 33.7 pg [facility] Comment:Testing performed by : [address] [address] MCHC 32.5(L) 32.7 - 35.5 g/dL [facility] Comment:Testing performed by : [facility], [address] [facility] [phone] RDW CV 15.0(H) 11.8 - 14.6 % [facility] Comment:Testing performed by : [facility], [address] [facility] [address] NRBC abs 0.00 0.00 - 0.01 K/cumm [facility] Comment:Testing performed by : [facility], [address] [facility] [phone] Blood specimen (specimen) 01/16/2018 3:02 PM CDT 01/16/2018 3:06 PM CDT Narrative [facility] - 01/16/2018 3:09 PM CDT Khris Arthur MD LAB BLOOD ORDERABLES Final Result [facility] One [facility] [place] [address] documented in this encounter Visit Diagnoses Diagnosis Malignant neoplasm of overlapping sites of left female breast, unspecified estrogen receptor status (HCC) documented in this encounter Care Teams Hand Tufter Relationship Specialty Start Date End Date Justen Gale MD [address] [place] [id number] PCP - General 10/09/17 Liu Jerez MD Consulting Physician Gastroenterology 07/28/17 [place] [address] [facility] [address] [place] [address] Consulting Physician Pulmonary Disease 08/03/17 Khris Arthur MD [address] [facility] [address] [place] [address] Medical Oncologist/Video Game Designer Medical Oncology 10/23/17 [place] [address] [address] Surgeon Orthopedic Surgery 10/23/17 [place] [address] [address] [address] Consulting Physician Pain Management 10/23/17 documented as of this encounter
--- OUTSIDE RECORDS SUMMARY | 2024-04-26 04:26 | XMS_ITS | Encounter Summary ---
Author Organization [facility] Address [address] [place] [address] Care Team Providers Care Desk Officer Name Role Phone Liu Jerez MD Unavailable [phone] Albert Corbin MD Unavailable [phone] Justen Gale MD Primary Care Provider Khris Arthur MD Unavailable [phone] Ko Melendez MD Unavailable John Paul Moyer MD Unavailable Reason for Visit * Reason Comments Back Pain Encounter Details Date Type Department Care Team (Late st Contact Info) Description 12/31/2017 11:13 PM CDT - 01/01/2018 12:35 AM CDT Emergency [facility] Emergency Department [address] [place] [address] [place] [address] [facility] [address] [place] [address] Chronic left-sided low back pain with left-sided sciatica (Primary Dx); Constipation, unspecified constipation type Discharge Disposition: Discharge to home or self care Social History Tobacco Use Types Packs/Day Years Used Date Smoking Tobacco: Former Smokeless Tobacco: Never Comments:remote tobacco use Alcohol Use Standard Drinks/Week Comments No 0 (1 standard drink = 0.6 oz pur e alcohol) Comments No Sex and Gender Information Value Date Recorded Sex Assigned at Not on file 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 * Chronic Pain (Italian) documented in this encounter Medications at Time of Discharge rOPINIRole (REQUIP) 5 mg tablet Take 1 tablet (5 mg total) by mouth nightly Taken at 2100 albuterol HFA (PROVENTIL HFA) 90 mcg/actuation inhaler Inhale 2 puffs. 08/15/2017 8 blood glucose diagnostic (ADVANCED GLUC METER TEST STRIP) strip Use as directed 11/09/2017 8 blood-glucose meter [facility] Diagnosis: Diabetes Type 2 Blood testing frequency: [...] daily. 8 documented as of this encounter Ordered Prescriptions Prescription Sig Dispense Quantity Refills Last Filled Start Date End Date docusate sodium (COLACE) 100 mg capsuleIndications :constipation Take 1 capsule (100 mg total) by mouth 2 (two) times a day. 15 capsule 01/01/2018 8 orphenadrine ER (NORFLEX) 100 mg 12 hr tabletIndications: Muscle Spasm Take 1 tablet (100 mg total) by mouth 2 (two) times a day. 20 tablet 01/01/2018 8 documented in this encounter Discharge Disposition Disposition Code Departure Means Destination Discharge to home or self care documented in this encounter ED Notes * Luci Soto PA - 12/31/2017 11:32 PM CDT Images from the original note were not included. HPI Chief Complaint Patient presents with ??? Back Pain 62 yo female complains of left lower back pain after fall today. Pt denies numbness or tingling to extremity. Pt is alert and in no acute distress. Pt denies bladder or bowel complaints. Patient History Patient Active Problem List Diagnosis Date Noted ??? Anxiety and depression 11/12/2017 ??? Uncontrolled type 2 diabetes mellitus with hyperglycemia, with long-term current use of insulin([facility]) 11/06/2017 ??? Allergy to drug 11/06/2017 ??? Dysuria 10/26/2017 ??? Acute left-sided low back pain with left-sided sciatica 10/23/2017 ??? Type 2 diabetes mellitus with neurologic complication, without long-term current use of insulin([facility]) 10/23/2017 ??? Essential hypertension 10/23/2017 [...] chest pain and palpitations. Gastrointestinal: Positive for constipation. Negative for abdominal pain and vomiting. Genitourinary: Negative for dysuria and hematuria. Musculoskeletal: Positive for back pain. Negative for arthralgias. Skin: Negative for color change and rash. Neurological: Negative for seizures, syncope and numbness. All other systems reviewed and are negative. Physical Exam ED Triage Vitals Temp Pulse Resp BP SpO2 -- -- -- -- -- Temp src Heart Rate Source Patient Position BP Location FiO2 (%) -- -- -- -- -- Physical Exam Constitutional: She appears well-developed and well-nourished. No distress. HENT: Head: Normocephalic and atraumatic. Eyes: Conjunctivae are normal. Neck: Neck supple. Cardiovascular: Normal rate and regular rhythm. No murmur heard. Pulmonary/Chest: Effort normal and breath sounds normal. No respiratory distress. Abdominal: Soft. There is no tenderness. Musculoskeletal: She exhibits no edema. Lumbar back: She exhibits bony tenderness and spasm. She exhibits no swelling, no edema, no deformity and no laceration. Back: Neurological: She is alert. Skin: Skin is warm and dry. Psychiatric: She has a normal mood and affect. Nursing note and vitals reviewed. MDM Chronic left-sided low back pain with left-sided sciatica Constipation, unspecified constipation type LINDA Cohen 01/01/18 0056 Cosigned by Enmanuel Dubon MD at 01/01/2018 6:01 AM CDT * Bud Dawkins RN - 12/31/2017 11:28 PM CDT Patient tripped over a rug today * Bud Dawkins RN - 12/31/2017 11:23 PM CDT I fell today and hurt my back. It is painful to walk. Patient fell Today patient fell and hit left hip today which aggrivated her back pain. Patient states she has a bad back anyway. documented in this encounter Plan of Treatment Not on file documented as of this encounter Procedures Procedure Name Priority Date/Time Associated Diagnosis Comments XR HIP LEFT 2 OR 3 VIEWS ED 01/01/2018 12:06 AM CDT XR SPINE LUMBAR COMPLETE 4 OR MORE VIEWS ED 01/01/2018 12:06 AM CDT documented [...] subluxation. Electronically signed by: Avelino Alonso M.D. us [...] ult documented in this encounter Visit Diagnoses Diagnosis Chronic left-sided low back pain with left-sided sciatica- Primary Constipation, unspecified constipation type documented in this encounter Administered Medications Inactive Administered Medications - up to 3 most recent administrations Medication Order MAR Action Action Date Dose Rate Site HYDROcodone-acetaminophen (NORCO) 5-325 mg per tablet 1 tablet 1 tablet, oral, Once, On 12/31/17 at 2331, For 1 dose, Indications: PainIndications:Pain Given 12/31/2017 11:36 PM CDT 1 tablet HYDROcodone-acetaminophen (NORCO) 5-325 mg per tablet 1 tablet 1 tablet, oral, Once, On 12/31/17 at 2335, For 1 dose, Indications: PainIndications:Pain Given 12/31/2017 11:36 PM CDT 1 tablet documented in this encounter Discontinued Medications Medication Sig Discontinue Reason Start Date End Da te baclofen (LIORESAL) 10 mg tablet TAKE 0.5-1 TAB EVERY 12 HOURS NEEDED FOR MUSCLE CRAMPING/SPASMS 05/31/2017 01/01/2018 traMADol (ULTRAM) 50 mg tablet Take 1 tablet (50 mg total) by mouth every 4 (four) hours as needed for pain. 11/28/2017 01/01/2018 HYDROcodone-acetaminophe n (NORCO) 5-325 mg per tablet Take 1 tablet by mouth every 8 (eight) hours as needed for pain. 10/31/2017 01/01/2018 cyclobenzaprine (FLEXERIL) 5 mg tablet TK 1 T PO TID FOR 14 DAYS 11/16/2017 01/01/2018 documented as of this encounter Active and Recently Administered Medications Times are shown in CDT. Scheduled Medication Order 12/30/2017 12/31/2017 01/01/2018 HYDROcodone-acetaminophen (NORCO) 5-325 mg per tablet 1 tablet (COMPLETED) 1 tablet, oral, Once, On 12/31/17 at 2331, For 1 dose, Indications: Pain 2336 (Given - Provider: Ian Dawkins RN) HYDROcodone-acetaminophen (NORCO) 5-325 mg per tablet 1 tablet (COMPLETED) 1 tablet, oral, Once, On 12/31/17 at 2335, For 1 dose, Indications: Pain 2336 (Given - Provider: Ian Dawkins RN) documented in this encounter Orders Medications Ordered That Tyler ht Not Have Been Administered Count Last Ordered Date First Ordered Date HYDROcodone-acetaminophen (N ORCO) 5-325 mg per tablet - ADS Override Pull 1 12/31/2017 HYDROcodone-acetaminophen (N ORCO) 5-325 mg per tablet 1 tablet 1 12/31/2017 documented in this encounter Care Teams Desk Officer Relationship Specialty Start Date End Date Justen Gale MD [address] [address] PCP - General 10/09/17 Liu Jerez MD Consulting Physician Gastroenterology 07/28/17 [place] [address] [facility] [address] [place] [address] Consulting Physician Pulmonary Disease 08/03/17 Khris Arthur MD [address] [facility] [address] [place] [address] Medical Oncologist/Energy Professional Medical Oncology 10/23/17 [place] [address] [address] [facility] [address] [place] [address] Surgeon Orthopedic Surgery 10/23/17 [place] [address] [address] [facility] [address] [place] [address] Consulting Physician Pain Management 10/23/17 documented as of this encounter
--- OUTSIDE RECORDS SUMMARY | 2024-04-26 04:26 | XMS_ITS | Encounter Summary ---
Author Organization [facility] Healthcare Address [address] [place] [address] Care Team Providers Care Vascular Physician Name Role Phone Liu Jerez MD Unavailable [phone] Albert Corbin MD Unavailable [phone] Justen Gale MD Primary Care Provider Khris Arthur MD Unavailable [phone] Ko Melendez MD Unavailable John Paul Moyer MD Unavailable Encounter Details Date Type Department Care Team (Latest Contact Info) Description 01/25/2018 7:37 AM CDT - 01/25/2018 10:48 AM CDT Hospital Encounter [address] [address] [place] [address] [address] [place] [address] Discharge Disposition: Discharge to home or self care Social History Tobacco Use Types Packs/Day Years Used Date Smoking Tobacco: Former Smokeless Tobacco: Never Comments:remote tobacco use Alcohol Use Standard Drinks/Week Comments No 0 (1 standard drink = 0.6 oz pur e alcohol) Comments No Sex and Gender Information Value Date Recorded Sex Assigned at Not on file 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 Gender Identity Not on file Sexual Orientation [...] Name Priority Date/Time Associated Diagnosis Comments MRI BRAIN WO CONTRAST IP Routine 01/25/2018 5:36 PM CDT documented in this encounter Results * MRI Brain WO Contrast (01/25/2018 5:36 [...] DO IMG MRI PROCEDURES Final R esult documented in this encounter Visit Diagnoses Not on filedocumented in this encounter Care Teams Vascular Physician Relationship Specialty Start Date End Date Justen Gale MD 2 [facility] [address] [place] [address] PCP - General 10/09/17 Liu Jerez MD Consulting Physician Gastroenterology 07/28/17 [place] [address] [address] [facility] [address] [place] [address] Consulting Physician Pulmonary Disease 08/03/17 Khris Arthur MD [address] [facility] [address] [place] [address] Medical Oncologist/Manager Behavioral Medical Oncology 10/23/17 [place] [address] [facility] [address] [place] [address] Surgeon Orthopedic Surgery 10/23/17 [place] [address] [facility] [address] [place] [address] Consulting Physician Pain Management 10/23/17 documented as of this encounter
--- OUTSIDE RECORDS SUMMARY | 2024-04-26 04:26 | XMS_ITS | Encounter Summary ---
Author Organization [facility] Healthcare Address [address] [place] [address] Care Team Providers Care Supervisor Coating Name Role Phone Liu Jerez MD Unavailable [phone] Albert Corbin MD Unavailable Justen Gale MD Primary Care Provider Khris Arthur MD Unavailable [phone] Ko Melendez MD Unavailable [phone] John Paul Moyer MD Unavailable Encounter Details Date Type Department Care Team (Latest Contact Info) Description 01/23/2018 4:34 PM CDT - 01/23/2018 11:59 PM CDT Hospital Encounter 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 Gender Identity Not on file Sexual Orientation [...] Diagnosis Comments XR CHEST 1 VIEW ED 01/23/2018 4:58 PM CDT documented in this encounter Results * XR Chest 1 Vw Portable (01/23/2018 [...] [facility] IMG XR PROCEDURES Final Resul t documented in this encounter Visit Diagnoses Not on filedocumented in this encounter Care Teams Supervisor Coating Relationship Specialty Start Date End Date Justen Gale MD [address] [place] [address] PCP - General 10/09/17 Liu Jerez MD Consulting Physician Gastroenterology 07/28/17 [place] [address] [address] [facility] [address] [place] [address] Consulting Physician Pulmonary Disease 08/03/17 Khris Arthur MD [address] [facility] [address] [place] [address] Medical Oncologist/Clinical Account Specialist Medical Oncology 10/23/17 [place] [address] [address] [facility] [address] [place] [address] Surgeon Orthopedic Surgery 10/23/17 [place] [address] [address] [facility] [address] [place] [address] Consulting Physician Pain Management 10/23/17 documented as of this encounter
--- OUTSIDE RECORDS SUMMARY | 2024-04-26 04:26 | XMS_ITS | Encounter Summary ---
Author Organization [facility] Healthcare Address [address] [place] [address] Care Team Providers Care Train Gateman Name Role Phone Liu Jerez MD Unavailable Albert Corbin MD Unavailable [phone] Justen Gale MD Primary Care Provider Khris Arthur MD Unavailable [phone] Ko Melendez MD Unavailable John Paul Moyer MD Unavailable Encounter Details Date Type Department Care Team (Latest Contact Info) Description 01/25/2018 4:18 PM CDT - 01/25/2018 11:59 PM CDT Hospital Encounter [facility] [address] [place] [address] Discharge Disposition: Discharge to home [...] on file 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 Gender Identity Not on file [...] on filedocumented in this encounter Care Teams Train Gateman Relationship Specialty Start Date End Date Justen Gale MD 2 [facility] [address] [place] [address] PCP - General 10/09/17 Liu Jerez MD Consulting Physician Gastroenterology 07/28/17 [place] [address] [address] [facility] [address] [place] [address] Consulting Physician Pulmonary Disease 08/03/17 Khris Arthur MD [address] [facility] [address] [place] [address] Medical Oncologist/Continuous Pickling Line Pickler Medical Oncology 10/23/17 [place] [address] [facility] [address] [place] [address] Surgeon Orthopedic Surgery 10/23/17 [place] [address] [address] [facility] [address] [place] [address] Consulting Physician Pain Management 10/23/17 documented as of this encounter
--- OUTSIDE RECORDS SUMMARY | 2024-04-26 04:26 | XMS_ITS | Encounter Summary ---
Author Organization [facility] Healthcare Address [address] [place] [address] Care Team Providers Care Watch Inspector Final Movement Name Role Phone Liu Jerez MD Unavailable [phone] Albert Corbin MD Unavailable [phone] Justen Gale MD Primary Care Provider Khris Arthur MD Unavailable [phone] Ko Melendez MD Unavailable John Paul Moyer MD Unavailable Encounter Details Date Type Department Care Team (Latest Contact Info) Description 01/25/2018 6:01 PM CDT - 01/25/2018 11:59 PM CDT Hospital Encounter [facility] [address] [place] [address] Discharge Disposition: Discharge to home [...] on file 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 Gender Identity Not on file Sexual Orientation [...] on filedocumented in this encounter Care Teams Watch Inspector Final Movement Relationship Specialty Start Date End Date Justen Gale MD 2 [facility] [address] [place] [address] PCP - General 10/09/17 Liu Jerez MD Consulting Physician Gastroenterology 07/28/17 [place] [address] [address] [facility] [address] [place] [address] Consulting Physician Pulmonary Disease 08/03/17 Khris Arthur MD [address] [facility] [address] [place] [address] Medical Oncologist/Grooming Salon Manager Medical Oncology 10/23/17 [place] [address] [facility] [address] [place] [address] Surgeon Orthopedic Surgery 10/23/17 [place] [address] [address] [facility] [address] [place] [address] Consulting Physician Pain Management 10/23/17 documented as of this encounter
--- OUTSIDE RECORDS SUMMARY | 2024-04-26 04:27 | XMS_ITS | Encounter Summary ---
Author Organization [facility] Address [address] [place] [address] Phone Care Team Providers Care Electric Container Tester Name Role Phone Liu Jerez MD Unavailable Albert Corbin MD Unavailable Justen Gale MD Primary Care Provider Khris Arthur MD Unavailable [phone] Ko Melendez MD Unavailable John Paul Moyer MD Unavailable Encounter Details Date Type Department Care Team (Late st Contact Info) Description 11/20/2017 Orders Only [facility] Oncology [address] [facility] 7th [place] [address] [place] [address] Khris Arthur MD [address] [facility] [address] [place] [address] Social History Tobacco Use Types Packs/Day Years Used Date Smoking Tobacco: Former Smokeless Tobacco: Never Comments:remote tobacco use Alcohol Use Standard Drinks/Week Comments No 0 (1 standard drink = 0.6 oz pur e alcohol) Comments No Sex and Gender Information Value Date Recorded Sex Assigned at Not on file 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 Gender Identity Not on file Sexual Orientation Not on file documented as of this encounter Plan of Treatment Not on file documented as of this encounter Visit Diagnoses Not on filedocumented in this encounter Care Teams Electric Container Tester Relationship Specialty Start Date End Date Justen Gale MD [address] [address] PCP - General 10/09/17 Liu Jerez MD Consulting Physician Gastroenterology 07/28/17 [place] [address] [facility] [address] [place] [address] Consulting Physician Pulmonary Disease 08/03/17 Khris Arthur MD [address] [facility] [address] [place] [address] Medical Oncologist/Retread Builder Medical Oncology 10/23/17 [place] [address] [facility] [address] [place] [address] Surgeon Orthopedic Surgery 10/23/17 [place] [address] [facility] [address] [place] [address] Consulting Physician Pain Management 10/23/17 documented as of this encounter
--- OUTSIDE RECORDS SUMMARY | 2024-04-26 04:27 | XMS_ITS | Encounter Summary ---
Author Organization [facility] Healthcare Address [address] [place] [address] Care Team Providers Care Configuration Management Administrator Name Role Phone Liu Jerez MD Unavailable Albert Corbin MD Unavailable Justen Gale MD Primary Care Provider Khris Arthur MD Unavailable [phone] Ko Melendez MD Unavailable John Paul Moyer MD Unavailable Reason for Visit * Reason Comments Hyperglycemia Weakness - Generalized Shortness of Breath Encounter Details Date Type Department Care Team (Latest Contact Info) Description 11/01/2017 5:48 PM CDT - 11/06/2017 4:05 PM CDT Hospital Encounter [facility] [address] [place] [address] [place] [id number] [facility] [address] [place] [address] [place] [id number] [facility] [address] [place] [address] [place] [id number] [facility] [address] [place], [place] [id number] [place] [id number] [facility] [address] [place], [place] [id number] COPD exacerbation (CMS/HCC) (Primary Dx); Chest pain, unspecified type; Chronic midline low back pain without sciatica [...] on file 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 Gender Identity Not on file Sexual Orientation Not on file documented as of this encounter Last Filed Vital Signs Vital Sign Reading Time Taken Comments Blood Pressure 116/80 11/06/2017 3:10 PM CDT Pulse 88 11/06/2017 3:10 PM CDT Temperature 36.7 ??C (98 ??F) 11/06/2017 3:10 PM CDT Respiratory Rate 18 11/06/2017 3:10 PM CDT Oxygen Saturation 98% 11/06/2017 3:10 PM CDT Inhaled Oxygen Concentration - - Weight 129.8 kg (286 lb 2.5 oz) 11/04/2017 4:30 AM CDT Height 154.9 cm (5' 1 ) 11/02/2017 4:45 AM CDT Body Mass Index 54.07 11/02/2017 4:45 AM CDT documented in this encounter Discharge Summaries * Zhen Carter MD - 11/06/2017 2:59 PM CDT Inpatient Discharge Summary BRIEF OVERVIEW Admitting Provider: Lucy Yu DO Discharge Provider: Zhen Carter MD Primary Care Physician at Discharge: Justen Gale MD [phone] Admission Date: 11/01/2017 Discharge Date: 11/06/2017 Primary Discharge Diagnosis: Active Problems: Uncontrolled type 2 diabetes mellitus with hyperglycemia, without long-term current use of insulin ([facility]) HbA1c of 9.2 even though on Several Oral Anti-Diabetic medications at home. Allergy to drug ( TRAZODONE ) Symptoms suggestive of Anxiety component, needs formal evaluation in the office. Secondary Discharge Diagnosis: Morbid Obesity Hx of Multiple episodes of PE on AC for life Very Long history of Restless leg syndrome Breast Cancer survivor ( s/p bilateral mastectomy ) HTN Chronic Low back pain ( 2/2 Multiple Disc bulges ) on conservative therapy ( with steroid shots) DM type 2 DETAILS OF HOSPITAL STAY Presenting Problem/History of Present Illness: Hospital Course: 1. Ms. Mohsen Montero is a pleasant Morbidly obese female ( claims that she lost almost 60 lbsin the recent months with Diet modifications) who has been dealing with her Lumbar disc herniation / chronic low back pain problems with steroid shots admitted with Hyperglycemia. 2. Even though she is on Glimepiride, Januvia & Metformin at home till this admission, it lookslike her sugars are not controled on these oral drugs, Her HbA1c IS 9.2 3. Her symptoms improved after her sugars are brought under control with the Aggressive insulin regimen. 4. Her hospital course is slightly prolonged as she developed allergic response to a small dose of Trazodone that we gave her for insomnia. ( She started feeling throat closing sensation, severely anxious, and worsened restless legs when she got this Trazodone. ) She improved with a dose of Solumedrol and benadryl and Famotidine. 5. She never really felt anxious on prolonged periods except when she was dealing with her Breast cancer. But, I told her she needs formal evaluation for Anxiety disorder screening at office. Note : We discontinued her All the Oral diabetic medications and started on Insulin regimen Test Results Pending at Discharge: Operative Procedures Performed: Pertinent Test Results: Discharge Details Physical Exam at Discharge: Discharge Condition: GOOD Pulse: 73 Resp: 18 BP: 130/66 Temp: 36.6 ??C (97.8 ??F) Weight: 129.8 kg (286 lb 2.5 oz) Pertinent Exam Findings at Discharge: Morbidly obese Female, , AO X 3, on RA HEENT :Atraumatic, Normocephalic NECK : SUPPLE CVS : S1, s 2+ regular Lungs : CTA Abdomen : Obese, soft, non tender Extremities : + feet fullness , + leg fullness Neuro : no focal deficits Discharge Disposition: Discharge to home or self care Code Status at Discharge: full code Discharge Instructions: Discharge Medications: Your medication list START taking these medications blood glucose diagnostic strip Please check your finger sticks 4 times a day insulin glargine 100 unit/mL injection Commonly known as: LANTUS Inject 30 Units under the skin 2 (two) times a day. insulin lispro 100 unit/mL injection Commonly known as: HumaLOG Inject 15 Units under the skin 3 (three) times a day with meals. insulin lispro 100 unit/mL injection Commonly known as: HumaLOG Inject 3-12 Units under the skin 5 (five) times a day (with meals, nightly, and 2 AM). CHANGE how you take these medications lisinopril 20 mg tablet Commonly known as: PRINIVIL,ZESTRIL take 1 Tablet (20MG) by oral route every day What changed: how to take this when to take this oxybutynin 5 mg tablet Commonly known as: DITROPAN take 1 tablet by oral route every day What changed: how to take this when to take this polyethylene glycol 17 gram/dose powder Commonly known as: MIRALAX Mix 1 scoop (17 g) in 8 oz of water and drink daily. What changed: when to take this reasons to take this additional instructions REQUIP 5 mg tablet Generic drug: rOPINIRole take 1 tablet (5MG) by oral route every day at bedtime What changed: how to take this when to take this CONTINUE taking these medications albuterol HFA 90 mcg/actuation inhaler Commonly known as: PROVENTIL HFA,VENTOLIN HFA,PROAIR HFA Inhale 2 puffs every 4 (four) hours as needed for wheezing. cyclobenzaprine 5 mg tablet Commonly known as: FLEXERIL Take 1 tablet (5 mg total) by mouth 3 (three) times a day as needed for muscle spasms for up to 30 doses. exemestane 25 mg tablet Commonly known as: AROMASIN fluticasone 50 mcg/actuation nasal spray Commonly known as: FLONASE Administer 1 spray into each nostril 2 (two) times a day. gabapentin 100 mg capsule Commonly known as: NEURONTIN Take 1 capsule (100 mg total) by mouth 3 (three) times a day. HYDROcodone-acetaminophen 5-325 mg per tablet Commonly known as: NORCO Take 1 tablet by mouth every 8 (eight) hours as needed for pain. rivaroxaban 10 mg tablet Commonly known as: XARELTO STOP taking these medications glimepiride 2 mg tablet Commonly known as: AMARYL sitaGLIPtin-metformin 50-1,000 mg per tablet Commonly known as: JANUMET Discharge time spent > 45 minutes Outpatient Follow-Up: Future Appointments Date Time Provider Department Center 11/14/2017 2:00 PM LAB, [facility] 11/14/2017 2:30 PM Khris Arthur MD ONC [facility] Oncology documented in this encounter Discharge Instructions * Discharge Instructions* Zhen Carter MD - 11/06/2017 3:15 PM CDT Please cut back on DRINKING THE FRUIT SHAKES YOU NEED TO REALLY WATCH YOUR DIET YOU MAY GET BENEFITED WITH [employer] INST[employer]ER COUNSELING FOR BETTER DIABETIC CONTROL STOP ALL YOUR DIABETIC PILLS documented in this encounter Medications at Time of Discharge albuterol HFA (PROVENTIL HFA) 90 mcg/actuation inhaler Inhale 2 puffs. 08/15/2017 8 albuterol HFA (PROVENTIL HFA,VENTOLIN HFA,PROAIR HFA) 90 mcg/actuation inhalerIndications: Bronchospasm Prevention Inhale 2 puffs every 4 (four) hours as needed for wheezing. 1 Inhaler 10/31/2017 8 baclofen (LIORESAL) 10 mg tablet TAKE 0.5-1 TAB EVERY 12 HOURS NEEDED FOR MUSCLE CRAMPING/SPASMS 05/31/2017 8 blood glucose diagnostic strip Please check your finger sticks 4 times a day 100 each 11/06/2017 8 ciprofloxacin (CIPRO) 500 mg tablet TK 1 T PO BID FOR 5 DAYS 0 10/18/2017 8 cyclobenzaprine (FLEXERIL) 5 mg tablet Take 1 tablet (5 mg total) by mouth 3 (three) times a day as needed for muscle spasms for up to 30 doses. 30 tablet 10/23/2017 8 exemestane (AROMASIN) 25 mg tablet Take 25 mg by mouth daily. After a meal 8 exemestane (AROMASIN) 25 mg tablet TAKE 1 TABLET BY MOUTH DAILY AFTER A MEAL 08/09/2016 8 fluticasone (FLONASE) 50 mcg/actuation nasal spray Administer 1 spray into each nostril 2 (two) times a day. 16 g 10/31/2017 8 gabapentin (NEURONTIN) 100 mg capsule Take 1 capsule (100 mg total) by mouth 3 (three) times a day. 90 capsule 10/31/2017 8 gabapentin (NEURONTIN) 300 mg capsule TAKE [...] needed for pain. 20 tablet 10/31/2017 8 HYDROcodone-acetami nophen (NORCO) 5-325 mg per tabletIndications:P ain Take 1 tablet by mouth every 30 minutes as needed. 09/14/2017 8 insulin glargine (LANTUS) 100 unit/mL injection Inject 30 Units under the skin 2 (two) times a day. 10 mL 11/06/2017 8 insulin lispro (HumaLOG) 100 unit/mL injection Inject 15 Units under the skin 3 (three) times a day with meals. 10 mL 11/06/2017 8 insulin lispro (HumaLOG) 100 unit/mL injectionIndication s:Diabetes Mellitus Inject 3-12 Units under the skin 5 (five) times a day (with meals, nightly, and 2 AM). 10 mL 11/06/2017 8 lisinopril (PRINIVIL,ZESTRIL) 20 mg tablet take 1 Tablet (20MG) by oral route every day 0 05/11/2012 8 lisinopril (PRINIVIL,ZESTRIL) 20 mg tablet Take 20 mg by mouth. 05/11/2012 2 LYRICA 75 mg capsule 0 09/15/2017 8 ondansetron ODT (ZOFRAN-ODT) 4 mg disintegrating tablet Take 4 mg by mouth. 08/28/2017 8 oxybutynin (DITROPAN) 5 mg tablet take 1 tablet by oral route every day 0 0 12/12/2013 3 oxybutynin (DITROPAN) 5 mg tablet Take 5 mg by mouth. 12/12/2013 8 polyethylene glycol (MIRALAX) 17 gram/dose powder Mix 1 scoop (17 g) in 8 oz of water and drink daily. 527 g 08/15/2017 1 polyethylene glycol (MIRALAX) 17 gram/dose powder Mix 1 scoop (17 g) in 8 oz of water and drink daily. 08/15/2017 8 rivaroxaban (XARELTO) 10 mg tablet Take 20 mg by mouth daily after dinner. 8 rivaroxaban (XARELTO) 20 mg tablet Take 20 mg by mouth. 08/08/2017 8 rOPINIRole (REQUIP) 5 mg tablet take 1 tablet (5MG) by oral route every day at bedtime 0 05/11/2012 8 documented as of this encounter Ordered Prescriptions Prescription Sig Dispense Quantity Refills Last Filled Start Date End Date blood glucose diagnostic strip Please check your finger sticks 4 times a day 100 each 11/06/2017 11/12/2017 insulin lispro (HumaLOG) 100 unit/mL injectionIndicatio ns:Diabetes Mellitus Inject 3-12 Units under the skin 5 (five) times a day (with meals, nightly, and 2 AM). 10 mL 11/06/2017 11/12/2017 insulin lispro (HumaLOG) 100 unit/mL injection Inject 15 Units under the skin 3 (three) times a day with meals. 10 mL 11/06/2017 11/12/2017 insulin glargine (LANTUS) 100 unit/mL injection Inject 30 Units under the skin 2 (two) times a day. 10 mL 11/06/2017 11/27/2017 documented in this encounter Discharge Disposition Disposition Code Departure Means Destination Discharge to home or self care documented in this encounter Progress Notes * Zhen Carter MD - 11/05/2017 4:52 PM CDT DAILY PROGRESS NOTE General Appearance: Lying in bed,awake,alert, on NC O2. Interval History:. Noted that, she developed an allergic response to A po dose of trazodone that was given yesterday afternoon. This morning she looks much better and setting up her bedding. Says I lost almost 60 lbs in the recent past by portion controlling Says I have been suffering from Restless leg syndrome from many many years I never had any history of anxiety disorder, except when I was diagnosed with Breast cancer few years ago, but I am Breast cancer survivor after all the chemo and radiation SUBJECTIVE: Complaints: ROS: No fever,chills. No neck pain. No cough,chest pain,wheezing,SOB No nausea,vomiting,abdominal pain,diarrhea. No headache,dizziness. OBJECTIVE: Vitals: Temp (24hrs), Av.7 ??C (98.1 ??F), Min:36.5 ??C (97.7 ??F), Max:37.1 ??C (98.7 ??F) Vitals: 11/05/17 1148 11/05/17 1210 11/05/17 1500 11/05/17 1610 BP: 94/69 118/70 BP Location: Patient Position: Pulse: 86 87 81 77 Resp: Temp: 36.7 ??C (98.1 ??F) 36.7 ??C (98 ??F) TempSrc: Oral SpO2: 97% 99% Weight: Height: LDA: I/O: Intake/Output Summary (Last 24 hours) at 11/05/17 1652 Last data filed at 11/05/17 1540 Gross per 24 hour Intake 4230 ml Output 3075 ml Net 1155 ml Physical Exam General: standing by the side of the bed, AO X 3, Pleasant SHEENT:Skin warm,dry,no rashes. No icterus,no cyanosis,no pallor,EOMI. Neck:Supple Respi:CTA rodolfo Cardio:RRR,no murmur GI:Abdomen obese,soft,bowel sounds +,non tender,not distended. Extre:No edema,no cyanosis,no pallor Neuro:Non focal Psych:Mood/Affect normal. Laboratory: Recent Results (from the past 24 hour(s)) POCT glucose Collection Time: 11/04/17 4:58 PM Result Value Ref Range Glucose, POC, bld 268 (H) 70 - 199 mg/dL POCT glucose Collection Time: 11/04/17 6:27 PM Result Value Ref Range Glucose, POC, bld 326 (H) 70 - 199 mg/dL POCT glucose Collection Time: 11/04/17 8:21 PM Result Value Ref Range Glucose, POC, bld 278 (H) 70 - 199 mg/dL POCT glucose Collection Time: 11/05/17 12:07 AM Result Value Ref Range Glucose, POC, bld 348 (H) 70 - 199 mg/dL POCT glucose Collection Time: 11/05/17 2:07 AM Result Value Ref Range Glucose, POC, bld 303 (H) 70 - 199 mg/dL CBC without differential Collection Time: 11/05/17 4:27 AM Result Value Ref Range WBC 16.2 (H) 3.8 - 9.9 K/cumm Hgb 11.6 (L) 11.9 - 15.5 g/dL Hct 37.2 35.6 - 45.5 % Plt 287 150 - 400 K/cumm MPV 10.8 9.1 - 12.3 fL RBC 4.24 3.90 - 5.20 M/cumm MCV 87.7 81.3 - 96.4 fL MCH 27.4 27.1 - 33.3 pg MCHC 31.2 (L) 32.3 - 35.7 g/dL RDW CV 15.1 (H) 11.1 - 14.9 % RDW SD 48.7 (H) 35.7 - 48.1 fL NRBC Abs 0.00 0.00 - 0.01 K/cumm Basic metabolic panel Collection Time: 11/05/17 4:27 AM Result Value Ref Range Sodium 134 (L) 135 - 145 mmol/L Potassium, pl 4.0 3.5 - 5.1 mmol/L Chloride 106 100 - 114 mmol/L CO2 24 22 - 32 mmol/L Anion Gap 8 8 - 16 mmol/L BUN 25 (H) 8 - 24 mg/dL Creatinine 0.78 0.60 - 1.30 mg/dL Glucose 245 (H) 70 - 199 mg/dL Calcium 9.2 8.4 - 10.5 mg/dL eGFR Collection Time: 11/05/17 4:27 AM Result Value Ref Range GFR 82 mL/min/1.73 m2 POCT glucose Collection Time: 11/05/17 6:32 AM Result Value Ref Range Glucose, POC, bld 182 70 - 199 mg/dL POCT glucose Collection Time: 11/05/17 9:29 AM Result Value Ref Range Glucose, POC, bld 247 (H) 70 - 199 mg/dL POCT glucose Collection Time: 11/05/17 12:24 PM Result Value Ref Range Glucose, POC, bld 195 70 - 199 mg/dL POCT glucose Collection Time: 11/05/17 3:42 PM Result Value Ref Range Glucose, POC, bld 90 70 - 199 mg/dL Radiology: Scheduled Medications: exemestane 25 mg oral Daily fluticasone 1 spray each nostril BID gabapentin 100 mg oral TID insulin glargine 30 Units subcutaneous BID insulin lispro 15 Units subcutaneous TID with meals insulin lispro/aspart 3-12 Units subcutaneous 5x daily (with meals, nightly, & 0200) lisinopril 20 mg oral Daily metFORMIN 1,000 mg oral BID with meals (bkfst, dinner) oxybutynin XL 5 mg oral Daily polyethylene glycol 17 g oral Daily rivaroxaban 20 mg oral Daily with dinner rOPINIRole 5 mg oral Nightly SITagliptin 100 mg oral Daily Current Facility-Administered Medications: ??? albuterol (PROVENTIL,VENTOLIN) 2.5 mg /3 mL (0.083 %) nebulizer solution 5 mg, 5 mg, nebulization, Q4H PRN (RT), Enmanuel Dubon MD, 5 mg at 11/03/17 0500 ??? albuterol HFA (PROVENTIL HFA,VENTOLIN HFA,PROAIR HFA) 90 mcg/actuation inhaler 2 puff, 2 puff, inhalation, Q4H PRN (RT), Britney Zavala NP ??? cyclobenzaprine (FLEXERIL) tablet 5 mg, 5 mg, oral, TID PRN, Britney Zavala NP, 5 mg at 11/04/17 1103 ??? dextrose 50% (concentrated solution) CONCENTRATED solution 25 g, 25 g, intravenous, Q15 Min PRN, Lucy Yu, DO ??? dextrose 50% (concentrated solution) CONCENTRATED solution 25 g, 25 g, intravenous, Q15 Min PRN, Britney Zavala NP ??? dextrose oral liquid liquid 15 g, 15 g, oral, Q15 Min PRN, Lucy Yu, DO ??? diphenhydrAMINE (BENADRYL) tab/cap 25 mg, 25 mg, oral, QID PRN, Britney Zavala NP, 25 mg at 11/04/17 1128 ??? exemestane (AROMASIN) tablet 25 mg, 25 mg, oral, Daily, Britney Zavala NP, 25 mg at 930 ??? fluticasone (FLONASE) 50 mcg/actuation nasal spray 1 spray, 1 spray, each nostril, BID, Britney Zavala NP, Stopped at 11/02/17 2017 ??? gabapentin (NEURONTIN) capsule 100 mg, 100 mg, oral, TID, Britney Zavala NP, 100 mg at 11/05/17 1537 ??? glucagon injection 1 mg, 1 mg, intramuscular, Q30 Min PRN, Lucy Pinai, DO ??? HYDROcodone-acetaminophen (NORCO) 5-325 mg per tablet 1 tablet, 1 tablet, oral, Q4H PRN, Britney Zavala NP, 1 tablet at 11/05/17 0439 ??? insulin glargine (LANTUS) injection 30 Units, 30 Units, subcutaneous, BID, Tessie Morin MD, 30 Units at 11/05/17 0931 ??? insulin lispro (HumaLOG) injection 15 Units, 15 Units, subcutaneous, TID with meals, Tessie Morin MD, 15 Units at 11/05/17 1242 ??? insulin lispro (HumaLOG) injection 3-12 Units, 3-12 Units, subcutaneous, 5x daily (with meals, nightly, & 0200), Tessie Morin MD, 3 Units at 11/05/17 1243 ??? lisinopril (PRINIVIL,ZESTRIL) tablet 20 mg, 20 mg, oral, Daily, Britney Zavala NP, 20 mg at 11/05/17 0930 ??? LORazepam (ATIVAN) tablet 0.5 mg, 0.5 mg, oral, Q4H PRN, Britney Zavala NP, 0.5 mg at 11/05/17 0935 ??? metFORMIN (GLUCOPHAGE) tablet 1,000 mg, 1,000 mg, oral, BID with meals (bkfst, dinner), MD Meron, 1,000 mg at 11/05/17 0930 ??? nitroglycerin (NITROSTAT) sublingual tablet 0.4 mg, 0.4 mg, sublingual, Q5 Min PRN, Enmanuel Dubon MD ??? ondansetron ODT (ZOFRAN-ODT) disintegrating tablet 4 mg, 4 mg, oral, Q6H PRN, Zhen Carter MD ??? oxybutynin XL (DITROPAN-XL) extended release tablet 5 mg, 5 mg, oral, Daily, Britney Zavala NP, 5 mg at 11/05/17 0930 ??? polyethylene glycol (MIRALAX) packet 17 g, 17 g, oral, Daily, Britney Zavala NP ??? prochlorperazine (COMPAZINE) injection 5 mg, 5 mg, intravenous, Q6H PRN, Britney Zavala NP, 5 mg at 11/04/17 1128 ??? rivaroxaban (XARELTO) tablet 20 mg, 20 mg, oral, Daily with dinner, Jose Santos MD, 20 mg at 11/04/17 1722 ??? rOPINIRole (REQUIP) tablet 5 mg, 5 mg, oral, Nightly, Britney Zavala NP, 5 mg at 11/04/172014 ??? SITagliptin (JANUVIA) tablet 100 mg, 100 mg, oral, Daily, Tessie Morin MD, 100 mg at 930 Continuous Medications: PRN Medications: ??? albuterol ??? albuterol HFA ??? cyclobenzaprine ??? dextrose 50% ??? dextrose 50% ??? dextrose ??? diphenhydrAMINE ??? glucagon ??? HYDROcodone-acetaminophen ??? LORazepam ??? nitroglycerin ??? ondansetron ODT ??? prochlorperazine ASSESSMENT/PLAN: 62 y.o. obese WF pt with a PMHx significant for Morbid obesity,Left breast cancer,S/P Rodolfo . mastectomy,CHF,Depression,DM-2,Hypothyroidism,DVT,PE, RLS,HTN,OA, sleep apnea presented to the ED with a chief complaint of not feeling well,fatigued,with high blood sugars x 1 day. She was admitted with Principal Problem: -SOB,Palpitations: Likely sec to anxiety from hyperglycemia.Troponins x 3 neg. consulted Cardiology.CXR neg, CT chest neg.Resolved now. ? Active Problems: ?? --Uncontrolled DM-2: Likely sec to steroids. D/Seth Solumedrol,consulted Endocrinology,started on Lantus Insulin, increased AC Humalog insulin dose.On SSI.BS 160-300. --Possible allergic reaction to Trazodone: S/P IV Solumedrol x 1, IV Pepcid, IV Benadryl.D/Seth Trazodone and listed it as allergy.Now symptoms resolved. -Leukocytosis: Likely sec to steroids. Will watch. Afebrile.No signs and symptoms of infection. 11/01 UA neg,CXR neg. -Normocytic anemia: Stable Hgb.Monitor. --Morbid obesity: --H/O Left breast cancer, rodolfo Mastectomy: Continue Aromasin. --H/O Chronic CHF:Well compensated.Will D/C IVF. --H/O Depression: --H/O Hypothyroidism: --H/O DVT/PE:Continue Xarelto. --H/O HTN:Continue ACEI. --H/O RLS:Continue Requip. --H/O Sleep Apnea: --H/O OA: -H/O Low back pain and left sided sciatica: S/P Recent steroid injection on 10/31. ? Full Code ?? DVT Prophylaxis with Xarelto. D/W RN D/C to home when blood sugars are under much better control. Anticipate discharge in 24 hours Zhen Carter MD 11/05/2017 4:52 PM * Zhen Carter MD - 11/04/2017 6:36 PM CDT DAILY PROGRESS NOTE General Appearance: Lying in bed,awake,alert,on [place] O2. Interval History:. Noted that, she developed an allergic response to A po dose of trazodone that was given yesterday afternoon. But, this morning, patient is still c/o symptoms including nervousness, anxiousness, and restless legs, She feels she is still going through the allergic response from Trazodone. She wonders, if Insulin could be the cause of her allergic response, as this is the first time fantasma got the insulins She was on Pills for Diabetes until this admission. I told the nurse to give her Ativan 0.5 mg q4 hrs as needed for anxious symptoms. ( Note : she doesn't complaint of anymore throat swelling sensation or itching) Per nurse, her symptoms are better than yesterday. SUBJECTIVE: Complaints: ROS: No fever,chills. No neck pain. No cough,chest pain,wheezing,SOB No nausea,vomiting,abdominal pain,diarrhea. No headache,dizziness. OBJECTIVE: Vitals: Temp (24hrs), Av.6 ??C (97.8 ??F), Min:36.2 ??C (97.1 ??F), Max:36.8 ??C (98.2 ??F) Vitals: 11/04/17 1134 11/04/17 1210 11/04/17 1602 11/04/17 1610 BP: 114/57 137/78 BP Location: Patient Position: Pulse: 61 68 87 63 Resp: 18 20 Temp: 36.2 ??C (97.1 ??F) 36.5 ??C (97.7 ??F) TempSrc: SpO2: 97% 98% Weight: Height: LDA: I/O: Intake/Output Summary (Last 24 hours) at 11/04/17 1837 Last data filed at 11/04/17 1820 Gross per 24 hour Intake 2915 ml Output 1650 ml Net 1265 ml Physical Exam General: Lying in bed,awake,alert,NAD, ( looked restless, constantly rubbing the legs to each other, ) looked anxious, unable to focus SHEENT:Skin warm,dry,no rashes. No icterus,no cyanosis,no pallor,EOMI. Neck:Supple Respi:CTA rodolfo Cardio:RRR,no murmur GI:Abdomen obese,soft,bowel sounds +,non tender,not distended. Extre:No edema,no cyanosis,no pallor Neuro:Non focal Psych:Mood/Affect normal. Anxious behavior Laboratory: Recent Results (from the past 24 hour(s)) POCT glucose Collection Time: 11/03/17 7:56 PM Result Value Ref Range Glucose, POC, bld 455 (Critical) 70 - 199 mg/dL Glucose comment 1 RN/MD Notified POCT glucose Collection Time: 11/03/17 8:57 PM Result Value Ref Range Glucose, POC, bld 400 (H) 70 - 199 mg/dL POCT glucose Collection Time: 11/03/17 11:36 PM Result Value Ref Range Glucose, POC, bld 351 (H) 70 - 199 mg/dL POCT glucose Collection Time: 11/04/17 1:29 AM Result Value Ref Range Glucose, POC, bld 356 (H) 70 - 199 mg/dL POCT glucose Collection Time: 11/04/17 4:09 AM Result Value Ref Range Glucose, POC, bld 298 (H) 70 - 199 mg/dL CBC without differential Collection Time: 11/04/17 4:28 AM Result Value Ref Range WBC 12.7 (H) 3.8 - 9.9 K/cumm Hgb 11.3 (L) 11.9 - 15.5 g/dL Hct 35.9 35.6 - 45.5 % Plt 263 150 - 400 K/cumm MPV 10.8 9.1 - 12.3 fL RBC 4.14 3.90 - 5.20 M/cumm MCV 86.7 81.3 - 96.4 fL MCH 27.3 27.1 - 33.3 pg MCHC 31.5 (L) 32.3 - 35.7 g/dL RDW CV 14.8 11.1 - 14.9 % RDW SD 47.3 35.7 - 48.1 fL NRBC Abs 0.00 0.00 - 0.01 K/cumm POCT glucose Collection Time: 11/04/17 6:32 AM Result Value Ref Range Glucose, POC, bld 265 (H) 70 - 199 mg/dL POCT glucose Collection Time: 11/04/17 8:36 AM Result Value Ref Range Glucose, POC, bld 305 (H) 70 - 199 mg/dL POCT glucose Collection Time: 11/04/17 10:58 AM Result Value Ref Range Glucose, POC, bld 178 70 - 199 mg/dL POCT glucose Collection Time: 11/04/17 12:18 PM Result Value Ref Range Glucose, POC, bld 126 70 - 199 mg/dL POCT glucose Collection Time: 11/04/17 2:39 PM Result Value Ref Range Glucose, POC, bld 69 (L) 70 - 199 mg/dL POCT glucose Collection Time: 11/04/17 3:00 PM Result Value Ref Range Glucose, POC, bld 102 70 - 199 mg/dL POCT glucose Collection Time: 11/04/17 4:58 PM Result Value Ref Range Glucose, POC, bld 268 (H) 70 - 199 mg/dL POCT glucose Collection Time: 11/04/17 6:27 PM Result Value Ref Range Glucose, POC, bld 326 (H) 70 - 199 mg/dL Radiology: Scheduled Medications: exemestane 25 mg oral Daily fluticasone 1 spray each nostril BID gabapentin 100 mg oral TID insulin glargine 25 Units subcutaneous BID insulin lispro 18 Units subcutaneous TID with meals insulin lispro/aspart 2-10 Units subcutaneous 5x daily (with meals, nightly, & 0200) lisinopril 20 mg oral Daily oxybutynin XL 5 mg oral Daily polyethylene glycol 17 g oral Daily rivaroxaban 20 mg oral Daily with dinner rOPINIRole 5 mg oral Nightly Current Facility-Administered Medications: ??? albuterol (PROVENTIL,VENTOLIN) 2.5 mg /3 mL (0.083 %) nebulizer solution 5 mg, 5 mg, nebulization, Q4H PRN (RT), Enmanuel Dubon MD, 5 mg at 11/03/17 0500 ??? albuterol HFA (PROVENTIL HFA,VENTOLIN HFA,PROAIR HFA) 90 mcg/actuation inhaler 2 puff, 2 puff, inhalation, Q4H PRN (RT), Britney Zavala NP ??? cyclobenzaprine (FLEXERIL) tablet 5 mg, 5 mg, oral, TID PRN, Britney Zavala NP, 5 mg at 11/04/17 1103 ??? dextrose 50% (concentrated solution) CONCENTRATED solution 25 g, 25 g, intravenous, Q15 Min PRN, Lucy Vakassi, DO ??? dextrose 50% (concentrated solution) CONCENTRATED solution 25 g, 25 g, intravenous, Q15 Min PRN, Britney Zavala NP ??? dextrose oral liquid liquid 15 g, 15 g, oral, Q15 Min PRN, Lucy Vakassi, DO ??? diphenhydrAMINE (BENADRYL) tab/cap 25 mg, 25 mg, oral, QID PRN, Britney Zavala NP, 25 mg at 11/04/17 1128 ??? exemestane (AROMASIN) tablet 25 mg, 25 mg, oral, Daily, Britney Zavala NP, 25 mg at 838 ??? fluticasone (FLONASE) 50 mcg/actuation nasal spray 1 spray, 1 spray, each nostril, BID, Britney Zavala NP, Stopped at 11/02/17 2017 ??? gabapentin (NEURONTIN) capsule 100 mg, 100 mg, oral, TID, Britney Zavala NP, 100 mg at 11/04/17 1638 ??? glucagon injection 1 mg, 1 mg, intramuscular, Q30 Min PRN, Lucy Vakassi, DO ??? HYDROcodone-acetaminophen (NORCO) 5-325 mg per tablet 1 tablet, 1 tablet, oral, Q4H PRN, Britney Zavala NP, 1 tablet at 11/04/17 1102 ??? insulin glargine (LANTUS) injection 25 Units, 25 Units, subcutaneous, BID, Tessie Morin MD ??? insulin lispro (HumaLOG) injection 18 Units, 18 Units, subcutaneous, TID with meals, Tessie Morin MD, 18 Units at 11/04/17 1714 ??? insulin lispro (HumaLOG) injection 2-10 Units, 2-10 Units, subcutaneous, 5x daily (with meals, nightly, & 0200), Tessie Morin MD, 6 Units at 11/04/17 1714 ??? lisinopril (PRINIVIL,ZESTRIL) tablet 20 mg, 20 mg, oral, Daily, Britney Zavala NP, 20 mg at 11/04/17 0839 ??? LORazepam (ATIVAN) injection 0.5 mg, 0.5 mg, intravenous, Q4H PRN, Zhen Carter MD, 0.5 mg at 11/04/17 1341 ??? nitroglycerin (NITROSTAT) sublingual tablet 0.4 mg, 0.4 mg, sublingual, Q5 Min PRN, Enmanuel Dubon MD ??? ondansetron ODT (ZOFRAN-ODT) disintegrating tablet 4 mg, 4 mg, oral, Q6H PRN, Zhen Carter MD ??? oxybutynin XL (DITROPAN-XL) extended release tablet 5 mg, 5 mg, oral, Daily, Britney Zavala NP, 5 mg at 11/04/17 0839 ??? polyethylene glycol (MIRALAX) packet 17 g, 17 g, oral, Daily, Britney Zavala NP ??? prochlorperazine (COMPAZINE) injection 5 mg, 5 mg, intravenous, Q6H PRN, Britney Zavala NP, 5 mg at 11/04/17 1128 ??? rivaroxaban (XARELTO) tablet 20 mg, 20 mg, oral, Daily with dinner, Jose Santos MD, 20 mg at 11/04/17 1722 ??? rOPINIRole (REQUIP) tablet 5 mg, 5 mg, oral, Nightly, Britney Zavala NP, 5 mg at 11/03/17 1946 ??? sodium chloride 0.9% infusion, 75 mL/hr, intravenous, Continuous, Lucy GlenniteshDO nathanael, Last Rate:75 mL/hr at 11/04/17 1058, 75 mL/hr at 11/04/17 1058 Continuous Medications: sodium chloride 0.9% 75 mL/hr Last Rate: 75 mL/hr (11/04/17 105) PRN Medications: ??? albuterol ??? albuterol HFA ??? cyclobenzaprine ??? dextrose 50% ??? dextrose 50% ??? dextrose ??? diphenhydrAMINE ??? glucagon ??? HYDROcodone-acetaminophen ??? LORazepam ??? nitroglycerin ??? ondansetron ODT ??? prochlorperazine ASSESSMENT/PLAN: 62 y.o. obese [place] pt with a PMHx significant for Morbid obesity,Left breast cancer,S/P Rodolfo . mastectomy,CHF,Depression,DM-2,Hypothyroidism,DVT,PE, RLS,HTN,OA, sleep apnea presented to the ED with a chief complaint of not feeling well,fatigued,with high blood sugars x 1 day. She was admitted with Principal Problem: -SOB,Palpitations: Likely sec to anxiety from hyperglycemia.Troponins x 3 neg. consulted Cardiology.CXR neg, CT chest neg.Resolved now. ? Active Problems: ?? --Uncontrolled DM-2: Likely sec to steroids. D/Seth Solumedrol,consulted Endocrinology,started on Lantus Insulin, increased AC Humalog insulin dose.On SSI.BS 160-300. --Possible allergic reaction to Trazodone: S/P IV Solumedrol x 1, IV Pepcid, IV Benadryl.D/Seth Trazodone and listed it as allergy.Now symptoms resolved. -Leukocytosis: Likely sec to steroids. Will watch. Afebrile.No signs and symptoms of infection. 11/01 UA neg,CXR neg. -Normocytic anemia: Stable Hgb.Monitor. --Morbid obesity: --H/O Left breast cancer, rodolfo Mastectomy: Continue Aromasin. --H/O Chronic CHF:Well compensated.Will D/C IVF. --H/O Depression: --H/O Hypothyroidism: --H/O DVT/PE:Continue Xarelto. --H/O HTN:Continue ACEI. --H/O RLS:Continue Requip. --H/O Sleep Apnea: --H/O OA: -H/O Low back pain and left sided sciatica: S/P Recent steroid injection on 10/31. ? Full Code ?? DVT Prophylaxis with Xarelto. D/W RN D/C to home when blood sugars are under much better control. Zhen Carter MD 11/04/2017 6:37 PM * Tessie Morin MD - 11/04/2017 3:37 PM CDT Endocrine Diabetes Follow up Note Reason for Consult: uncontrolled diabetes CC: Chief Complaint Patient presents with ??? Hyperglycemia ??? Weakness - Generalized ??? Shortness of Breath Interval History: BS improving, pt. Had a low this afternoon Pt. Breathing slowly improving Appetite good Objective Vitals: Most Recent : Vitals: 11/04/17 0738 11/04/17 0820 11/04/17 1134 11/04/17 1210 BP: 137/80 114/57 BP Location: Patient Position: Pulse: 73 68 61 68 Resp: 18 18 Temp: 36.7 ??C (98 ??F) 36.2 ??C (97.1 ??F) TempSrc: SpO2: 95% 97% Weight: Height: Physical Exam: Physical Exam Constitutional: She is oriented to person, place, and time. She is active. No distress. Morbidly obese + HENT: Head: Normocephalic and atraumatic. Eyes: Conjunctivae and EOM are normal. Neck: Neck supple. No thyromegaly present. Cardiovascular: Normal rate, regular rhythm and normal heart sounds. Pulmonary/Chest: Effort normal and breath sounds normal. Abdominal: Soft. Bowel sounds are normal. She exhibits no mass. There is no tenderness. Musculoskeletal: She exhibits no edema or tenderness. Feet: Right Foot: Skin Integrity: Negative for ulcer. Left Foot: Skin Integrity: Negative for ulcer. Neurological: She is alert and oriented to person, place, and time. She has normal reflexes. Skin: Skin is warm and dry. Psychiatric: She has a normal mood and affect. Judgment and thought content normal. Lab/Radiology/Diagnostic Review: Reviewed. Recent Results (from the past 48 hour(s)) POCT glucose Collection Time: 11/02/17 4:35 PM Result Value Ref Range Glucose, POC, bld 366 (H) 70 - 199 mg/dL POCT glucose Collection Time: 11/02/17 6:40 PM Result Value Ref Range Glucose, POC, bld 401 (H) 70 - 199 mg/dL POCT glucose Collection Time: 11/02/17 8:03 PM Result Value Ref Range Glucose, POC, bld 476 (Critical) 70 - 199 mg/dL Glucose comment 1 RN/MD Notified POCT glucose Collection Time: 11/02/17 9:07 PM Result Value Ref Range Glucose, POC, bld 435 (H) 70 - 199 mg/dL Troponin I Collection Time: 11/02/17 9:50 PM Result Value Ref Range Troponin I <0.03 0.00 - 0.14 ng/mL POCT glucose Collection Time: 11/03/17 2:03 AM Result Value Ref Range Glucose, POC, bld 392 (H) 70 - 199 mg/dL POCT glucose Collection Time: 11/03/17 3:32 AM Result Value Ref Range Glucose, POC, bld 343 (H) 70 - 199 mg/dL CBC without differential Collection Time: 11/03/17 4:52 AM Result Value Ref Range WBC 12.2 (H) 3.8 - 9.9 K/cumm Hgb 11.3 (L) 11.9 - 15.5 g/dL Hct 36.9 35.6 - 45.5 % Plt 281 150 - 400 K/cumm MPV 10.3 9.1 - 12.3 fL RBC 4.21 3.90 - 5.20 M/cumm MCV 87.6 81.3 - 96.4 fL MCH 26.8 (L) 27.1 - 33.3 pg MCHC 30.6 (L) 32.3 - 35.7 g/dL RDW CV 14.9 11.1 - 14.9 % RDW SD 48.1 35.7 - 48.1 fL NRBC Abs 0.00 0.00 - 0.01 K/cumm POCT glucose Collection Time: 11/03/17 6:08 AM Result Value Ref Range Glucose, POC, bld 305 (H) 70 - 199 mg/dL POCT glucose Collection Time: 11/03/17 8:14 AM Result Value Ref Range Glucose, POC, bld 290 (H) 70 - 199 mg/dL POCT glucose Collection Time: 11/03/17 12:09 PM Result Value Ref Range Glucose, POC, bld 167 70 - 199 mg/dL POCT glucose Collection Time: 11/03/17 1:39 PM Result Value Ref Range Glucose, POC, bld 272 (H) 70 - 199 mg/dL POCT glucose Collection Time: 11/03/17 5:01 PM Result Value Ref Range Glucose, POC, bld 417 (H) 70 - 199 mg/dL POCT glucose Collection Time: 11/03/17 7:56 PM Result Value Ref Range Glucose, POC, bld 455 (Critical) 70 - 199 mg/dL Glucose comment 1 RN/MD Notified POCT glucose Collection Time: 11/03/17 8:57 PM Result Value Ref Range Glucose, POC, bld 400 (H) 70 - 199 mg/dL POCT glucose Collection Time: 11/03/17 11:36 PM Result Value Ref Range Glucose, POC, bld 351 (H) 70 - 199 mg/dL POCT glucose Collection Time: 11/04/17 1:29 AM Result Value Ref Range Glucose, POC, bld 356 (H) 70 - 199 mg/dL POCT glucose Collection Time: 11/04/17 4:09 AM Result Value Ref Range Glucose, POC, bld 298 (H) 70 - 199 mg/dL CBC without differential Collection Time: 11/04/17 4:28 AM Result Value Ref Range WBC 12.7 (H) 3.8 - 9.9 K/cumm Hgb 11.3 (L) 11.9 - 15.5 g/dL Hct 35.9 35.6 - 45.5 % Plt 263 150 - 400 K/cumm MPV 10.8 9.1 - 12.3 fL RBC 4.14 3.90 - 5.20 M/cumm MCV 86.7 81.3 - 96.4 fL MCH 27.3 27.1 - 33.3 pg MCHC 31.5 (L) 32.3 - 35.7 g/dL RDW CV 14.8 11.1 - 14.9 % RDW SD 47.3 35.7 - 48.1 fL NRBC Abs 0.00 0.00 - 0.01 K/cumm POCT glucose Collection Time: 11/04/17 6:32 AM Result Value Ref Range Glucose, POC, bld 265 (H) 70 - 199 mg/dL POCT glucose Collection Time: 11/04/17 8:36 AM Result Value Ref Range Glucose, POC, bld 305 (H) 70 - 199 mg/dL POCT glucose Collection Time: 11/04/17 10:58 AM Result Value Ref Range Glucose, POC, bld 178 70 - 199 mg/dL POCT glucose Collection Time: 11/04/17 12:18 PM Result Value Ref Range Glucose, POC, bld 126 70 - 199 mg/dL POCT glucose Collection Time: 11/04/17 2:39 PM Result Value Ref Range Glucose, POC, bld 69 (L) 70 - 199 mg/dL POCT glucose Collection Time: 11/04/17 3:00 PM Result Value Ref Range Glucose, POC, bld 102 70 - 199 mg/dL Lab Results Component Value Date HGBA1C 9.2 (H) 10/27/2017 Assessment/Recommendations: 1. DM type 2, uncontrolled, with steroid induced acute severe hyperglycemia ?? Recent A1c - 9.2 % ?? - pt. received IV solumedrol yesterday - causing BS spiking - Decrease Lantus to 24 units SQ twice daily ?? - Decrease Humalog 18 units TID with meals ?? - Humalog readjusted to high dose form very high dose ?? - will continue to follow up ? 2. Morbid obesity ?? 3. CAD s/p stent ?? 4 Chronic lower back with Sciatica - s/p steroids ?? Will continue to follow. ?? Tessie Morin MD 11/04/2017 * Tessie Morin MD - 11/03/2017 4:28 PM CDT Endocrine Diabetes Follow up Note Reason for Consult: uncontrolled diabetes CC: Chief Complaint Patient presents with ??? Hyperglycemia ??? Weakness - Generalized ??? Shortness of Breath Interval History: Pt. BS started improving slowly and today she received solumedrol 125 mg IV dose today Causing BS to spike back again Pt. Breathing slowly improving Appetite good Objective Vitals: Most Recent : Vitals: 11/03/17 1336 11/03/17 1402 11/03/17 1536 11/03/17 1610 BP: 156/93 163/83 150/86 BP Location: Right arm Patient Position: Sitting Pulse: 92 89 74 102 Resp: 24 20 20 Temp: 37.1 ??C (98.8 ??F) 36.8 ??C (98.3 ??F) TempSrc: Oral Oral SpO2: 97% 97% 97% Weight: Height: Physical Exam: Physical Exam Constitutional: She is oriented to person, place, and time. She is active. No distress. Morbidly obese + HENT: Head: Normocephalic and atraumatic. Eyes: Conjunctivae and EOM are normal. Neck: Neck supple. No thyromegaly present. Cardiovascular: Normal rate, regular rhythm and normal heart sounds. Pulmonary/Chest: Effort normal and breath sounds normal. Abdominal: Soft. Bowel sounds are normal. She exhibits no mass. There is no tenderness. Musculoskeletal: She exhibits no edema or tenderness. Feet: Right Foot: Skin Integrity: Negative for ulcer. Left Foot: Skin Integrity: Negative for ulcer. Neurological: She is alert and oriented to person, place, and time. She has normal reflexes. Skin: Skin is warm and dry. Psychiatric: She has a normal mood and affect. Judgment and thought content normal. Lab/Radiology/Diagnostic Review: Reviewed. Recent Results (from the past 48 hour(s)) Urinalysis reflex to microscopic and culture Urine Collection Time: 11/01/17 6:30 PM Result Value Ref Range Color, ur Straw Yellow Clarity, ur Clear Clear Specific gravity, ur 1.026 (H) 1.010 - 1.025 pH, urine 6.0 Protein, ur ql Negative Negative Glucose, ur ql 3+ (A) Negative Ketones, ur Negative Negative Bilirubin, ur Negative Negative Blood, ur 2+ (A) Negative Urobilinogen, ur <2.0 <2.0 mg/dL Nitrite, ur Negative Negative Leukocyte esterase, ur 1+ (A) Negative Urinalysis, microscopic only Collection Time: 11/01/17 6:30 PM Result Value Ref Range WBC, ur 0-5 0 - 5 /HPF RBC, ur 0-5 0 - 5 /HPF ECG 12 lead Collection Time: 11/01/17 6:31 PM Result Value Ref Range Patient age 62 years Interpretation Text SINUS RHYTHMPOSSIBLE RIGHT VENTRICULAR CONDUCTION DELAYBORDERLINE ECGPREVIOUS TRACIN08/18/2017 15.17No significant change compared to prior ECG Ventricular Rate EKG/Min 88 /min P Wave Duration 111 ms QRS-Interval (MSEC) 80 ms VA-Interval (MSEC) 134 ms QT Interval 350 ms QTc 399 ms QTC Interval ms P Burr 59 deg QRS Burr 20 deg T Burr 52 deg CBC with auto differential Collection Time: 11/01/17 7:11 PM Result Value Ref Range WBC 17.1 (H) 3.8 - 9.9 K/cumm RBC 4.69 3.90 - 5.20 M/cumm Hgb 12.7 11.9 - 15.5 g/dL Hct 40.6 35.6 - 45.5 % MCV 86.6 81.3 - 96.4 fL MCH 27.1 27.1 - 33.3 pg MCHC 31.3 (L) 32.3 - 35.7 g/dL RDW CV 14.9 11.1 - 14.9 % RDW SD 47.1 35.7 - 48.1 fL Plt 347 150 - 400 K/cumm MPV 10.4 9.1 - 12.3 fL NRBC Abs 0.00 0.00 - 0.01 K/cumm Comprehensive metabolic panel Collection Time: 11/01/17 7:11 PM Result Value Ref Range Sodium 134 (L) 135 - 145 mmol/L Potassium, pl 5.0 3.5 - 5.1 mmol/L Chloride 103 100 - 114 mmol/L CO2 24 22 - 32 mmol/L Anion Gap 12 8 - 16 mmol/L BUN 25 (H) 8 - 24 mg/dL Creatinine 0.90 0.60 - 1.30 mg/dL Glucose 429 (H) 70 - 199 mg/dL Calcium 9.7 8.4 - 10.5 mg/dL Bilirubin, total 0.50 0.10 - 1.30 mg/dL Protein, pl 7.8 6.0 - 8.3 g/dL Albumin 3.4 3.2 - 4.8 g/dL Alk phos 81 30 - 110 Units/L ALT 25 1 - 45 Units/L AST 22 7 - 40 Units/L B-type natriuretic peptide Collection Time: 11/01/17 7:11 PM Result Value Ref Range B-Type Natriuretic Peptide (BNP) 34 0 - 100 pg/mL Troponin I Collection Time: 11/01/17 7:11 PM Result Value Ref Range Troponin I 0.05 0.00 - 0.14 ng/mL Differential, auto Collection Time: 11/01/17 7:11 PM Result Value Ref Range Neutrophil absolute 14.2 (H) 1.7 - 6.5 K/cumm Immature granulocyte absolute 0.1 0.0 - 0.1 K/cumm Lymphocytes absolute 1.6 0.8 - 3.3 K/cumm Monocyte absolute 1.2 (H) 0.2 - 0.8 K/cumm Eosinophils absolute 0.0 0.0 - 0.5 K/cumm Basophils, abs 0.0 0.0 - 0.1 K/cumm Neutrophils 82.8 % Immature granulocytes 0.8 % Lymphocytes 9.5 % Monocytes 6.7 % Eosinophils 0.0 % Basophils 0.2 % eGFR Collection Time: 11/01/17 7:11 PM Result Value Ref Range GFR 69 mL/min/1.73 m2 POCT glucose Collection Time: 11/01/17 7:37 PM Result Value Ref Range Glucose, POC, bld 402 (H) 70 - 199 mg/dL ECG 12 lead Collection Time: 11/01/17 7:42 PM Result Value Ref Range Patient age 62 years Interpretation Text SINUS TACHYCARDIANONSPECIFIC T-WAVE ABNORMALITYABNORMAL RHYTHM ECGPREVIOUS TRACIN11/01/2017 18.31Compared to prior ECG Sinus tachycardia is new. Ventricular Rate EKG/Min 104 /min P Wave Duration 107 ms QRS-Interval (MSEC) 86 ms VA-Interval (MSEC) 125 ms QT Interval 352 ms QTc 429 ms QTC Interval ms P Burr 46 deg QRS Burr 19 deg T Burr 67 deg POCT glucose Collection Time: 11/01/17 9:58 PM Result Value Ref Range Glucose, POC, bld 344 (H) 70 - 199 mg/dL Troponin I Collection Time: 11/01/17 10:36 PM Result Value Ref Range Troponin I <0.03 0.00 - 0.14 ng/mL POCT glucose Collection Time: 11/02/17 12:18 AM Result Value Ref Range Glucose, POC, bld 291 (H) 70 - 199 mg/dL Troponin I Collection Time: 11/02/17 1:40 AM Result Value Ref Range Troponin I <0.03 0.00 - 0.14 ng/mL POCT glucose Collection Time: 11/02/17 3:49 AM Result Value Ref Range Glucose, POC, bld 266 (H) 70 - 199 mg/dL POCT glucose Collection Time: 11/02/17 4:56 AM Result Value Ref Range Glucose, POC, bld 242 (H) 70 - 199 mg/dL POCT glucose Collection Time: 11/02/17 6:47 AM Result Value Ref Range Glucose, POC, bld 229 (H) 70 - 199 mg/dL Troponin I Collection Time: 11/02/17 8:14 AM Result Value Ref Range Troponin I <0.03 0.00 - 0.14 ng/mL Lipid panel Collection Time: 11/02/17 8:14 AM Result Value Ref Range Cholesterol 178 100 - 200 mg/dL Triglycerides 86 10 - 150 mg/dL HDL 51 40 - 59 mg/dL LDL, calculated 110 60 - 129 mg/dL Non-HDL, (LDL+VLDL) 127 mg/dL ECG 12 lead Collection Time: 11/02/17 8:56 AM Result Value Ref Range Patient age 62 years Interpretation Text SINUS RHYTHM WITH SHORT VA INTERVALBORDERLINE ECGPREVIOUS TRACIN11/01/2017 19.42Compared to prior ECG Sinus tachycardia is no longer present. Ventricular Rate EKG/Min 73 /min P Wave Duration 103 ms QRS-Interval (MSEC) 80 ms VA-Interval (MSEC) 116 ms QT Interval 367 ms QTc 389 ms QTC Interval ms P Burr -6 deg QRS Burr 21 deg T Burr 36 deg POCT glucose Collection Time: 11/02/17 10:59 AM Result Value Ref Range Glucose, POC, bld 312 (H) 70 - 199 mg/dL Troponin I Collection Time: 11/02/17 11:48 AM Result Value Ref Range Troponin I <0.03 0.00 - 0.14 ng/mL CBC without differential Collection Time: 11/02/17 11:48 AM Result Value Ref Range WBC 14.7 (H) 3.8 - 9.9 K/cumm RBC 4.40 3.90 - 5.20 M/cumm Hgb 12.1 11.9 - 15.5 g/dL Hct 38.4 35.6 - 45.5 % MCV 87.3 81.3 - 96.4 fL MCH 27.5 27.1 - 33.3 pg MCHC 31.5 (L) 32.3 - 35.7 g/dL RDW CV 14.9 11.1 - 14.9 % RDW SD 48.0 35.7 - 48.1 fL Plt 303 150 - 400 K/cumm MPV 10.1 9.1 - 12.3 fL NRBC Abs 0.00 0.00 - 0.01 K/cumm Protime-INR Collection Time: 11/02/17 11:48 AM Result Value Ref Range PT 13.0 9.5 - 13.0 sec INR 1.15 0.90 - 1.20 aPTT Collection Time: 11/02/17 11:48 AM Result Value Ref Range APTT 31.4 25.0 - 37.0 sec Creatinine Collection Time: 11/02/17 11:48 AM Result Value Ref Range Creatinine 0.76 0.60 - 1.30 mg/dL eGFR Collection Time: 11/02/17 11:48 AM Result Value Ref Range GFR 85 mL/min/1.73 m2 POCT glucose Collection Time: 11/02/17 4:35 PM Result Value Ref Range Glucose, POC, bld 366 (H) 70 - 199 mg/dL POCT glucose Collection Time: 11/02/17 6:40 PM Result Value Ref Range Glucose, POC, bld 401 (H) 70 - 199 mg/dL POCT glucose Collection Time: 11/02/17 8:03 PM Result Value Ref Range Glucose, POC, bld 476 (Critical) 70 - 199 mg/dL Glucose comment 1 RN/MD Notified POCT glucose Collection Time: 11/02/17 9:07 PM Result Value Ref Range Glucose, POC, bld 435 (H) 70 - 199 mg/dL Troponin I Collection Time: 11/02/17 9:50 PM Result Value Ref Range Troponin I <0.03 0.00 - 0.14 ng/mL POCT glucose Collection Time: 11/03/17 2:03 AM Result Value Ref Range Glucose, POC, bld 392 (H) 70 - 199 mg/dL POCT glucose Collection Time: 11/03/17 3:32 AM Result Value Ref Range Glucose, POC, bld 343 (H) 70 - 199 mg/dL CBC without differential Collection Time: 11/03/17 4:52 AM Result Value Ref Range WBC 12.2 (H) 3.8 - 9.9 K/cumm Hgb 11.3 (L) 11.9 - 15.5 g/dL Hct 36.9 35.6 - 45.5 % Plt 281 150 - 400 K/cumm MPV 10.3 9.1 - 12.3 fL RBC 4.21 3.90 - 5.20 M/cumm MCV 87.6 81.3 - 96.4 fL MCH 26.8 (L) 27.1 - 33.3 pg MCHC 30.6 (L) 32.3 - 35.7 g/dL RDW CV 14.9 11.1 - 14.9 % RDW SD 48.1 35.7 - 48.1 fL NRBC Abs 0.00 0.00 - 0.01 K/cumm POCT glucose Collection Time: 11/03/17 6:08 AM Result Value Ref Range Glucose, POC, bld 305 (H) 70 - 199 mg/dL POCT glucose Collection Time: 11/03/17 8:14 AM Result Value Ref Range Glucose, POC, bld 290 (H) 70 - 199 mg/dL POCT glucose Collection Time: 11/03/17 12:09 PM Result Value Ref Range Glucose, POC, bld 167 70 - 199 mg/dL POCT glucose Collection Time: 11/03/17 1:39 PM Result Value Ref Range Glucose, POC, bld 272 (H) 70 - 199 mg/dL POCT glucose Collection Time: 11/03/17 5:01 PM Result Value Ref Range Glucose, POC, bld 417 (H) 70 - 199 mg/dL Lab Results Component Value Date HGBA1C 9.2 (H) 10/27/2017 Assessment/Recommendations: 1. DM type 2, uncontrolled, with steroid induced acute severe hyperglycemia ?? Recent A1c - 9.2 % ?? - pt. received IV solumedrol today - causing BS spiking - increase Lantus to 30 units SQ daily ?? - increase Humalog 20 units TID with meals ?? - Humalog high dose correctional scale - READJUSTED TO VERY HIGH DOSE - WILL CUT BACK ONCE PT BS IMPROVE ?? - pt. Bs still high, takes atleast 12-18 hours to start improving ?? - will continue to follow up ? 2. Morbid obesity ?? 3. CAD s/p stent ?? 4 Chronic lower back with Sciatica - s/p steroids ?? Will continue to follow. ?? Tessie Morin MD 11/03/2017 * Bia Hensley MD - 11/03/2017 4:18 PM CDT DAILY PROGRESS NOTE General Appearance: Lying in bed,awake,alert,on NC O2. Interval History:.Called rapid response this after nooon for reaction to Trazodone. Pt felt shaky,jittery,panting,worsening of her restless legs, followed by sensation of throat closing,not able to swallow and talk. Received IV Solumedrol x 1 dose IV Pepcid and IV Benadryl.Now feeling much better. SUBJECTIVE: Complaints: ROS: No fever,chills. No neck pain. No cough,chest pain,wheezing,SOB No nausea,vomiting,abdominal pain,diarrhea. No headache,dizziness. OBJECTIVE: Vitals: Temp (24hrs), Av.8 ??C (98.3 ??F), Min:36.5 ??C (97.7 ??F), Max:37.1 ??C (98.8 ??F) Vitals: 11/03/17 1303 11/03/17 1336 11/03/17 1402 11/03/17 1536 BP: 152/87 156/93 163/83 150/86 BP Location: Right arm Right arm Patient Position: Sitting Pulse: 92 92 89 74 Resp: 24 24 20 20 Temp: 37.1 ??C (98.8 ??F) 36.8 ??C (98.3 ??F) TempSrc: Oral Oral SpO2: 97% 97% 97% Weight: Height: LDA: I/O: Intake/Output Summary (Last 24 hours) at 11/03/17 1618 Last data filed at 11/03/17 1450 Gross per 24 hour Intake 1936 ml Output 550 ml Net 1386 ml Physical Exam General: Lying in bed,awake,alert,NAD SHEENT:Skin warm,dry,no rashes. No icterus,no cyanosis,no pallor,EOMI. Neck:Supple Respi:CTA rodolfo Cardio:RRR,no murmur GI:Abdomen obese,soft,bowel sounds +,non tender,not distended. Extre:No edema,no cyanosis,no pallor Neuro:Non focal Psych:Mood/Affect normal.Behavior normal. Laboratory: Recent Results (from the past 24 hour(s)) POCT glucose Collection Time: 11/02/17 4:35 PM Result Value Ref Range Glucose, POC, bld 366 (H) 70 - 199 mg/dL POCT glucose Collection Time: 11/02/17 6:40 PM Result Value Ref Range Glucose, POC, bld 401 (H) 70 - 199 mg/dL POCT glucose Collection Time: 11/02/17 8:03 PM Result Value Ref Range Glucose, POC, bld 476 (Critical) 70 - 199 mg/dL Glucose comment 1 RN/MD Notified POCT glucose Collection Time: 11/02/17 9:07 PM Result Value Ref Range Glucose, POC, bld 435 (H) 70 - 199 mg/dL Troponin I Collection Time: 11/02/17 9:50 PM Result Value Ref Range Troponin I <0.03 0.00 - 0.14 ng/mL POCT glucose Collection Time: 11/03/17 2:03 AM Result Value Ref Range Glucose, POC, bld 392 (H) 70 - 199 mg/dL POCT glucose Collection Time: 11/03/17 3:32 AM Result Value Ref Range Glucose, POC, bld 343 (H) 70 - 199 mg/dL CBC without differential Collection Time: 11/03/17 4:52 AM Result Value Ref Range WBC 12.2 (H) 3.8 - 9.9 K/cumm Hgb 11.3 (L) 11.9 - 15.5 g/dL Hct 36.9 35.6 - 45.5 % Plt 281 150 - 400 K/cumm MPV 10.3 9.1 - 12.3 fL RBC 4.21 3.90 - 5.20 M/cumm MCV 87.6 81.3 - 96.4 fL MCH 26.8 (L) 27.1 - 33.3 pg MCHC 30.6 (L) 32.3 - 35.7 g/dL RDW CV 14.9 11.1 - 14.9 % RDW SD 48.1 35.7 - 48.1 fL NRBC Abs 0.00 0.00 - 0.01 K/cumm POCT glucose Collection Time: 11/03/17 6:08 AM Result Value Ref Range Glucose, POC, bld 305 (H) 70 - 199 mg/dL POCT glucose Collection Time: 11/03/17 8:14 AM Result Value Ref Range Glucose, POC, bld 290 (H) 70 - 199 mg/dL POCT glucose Collection Time: 11/03/17 12:09 PM Result Value Ref Range Glucose, POC, bld 167 70 - 199 mg/dL POCT glucose Collection Time: 11/03/17 1:39 PM Result Value Ref Range Glucose, POC, bld 272 (H) 70 - 199 mg/dL Radiology: Scheduled Medications: exemestane 25 mg oral Daily fluticasone 1 spray each nostril BID gabapentin 100 mg oral TID insulin glargine 30 Units subcutaneous BID insulin lispro/aspart 2-16 Units subcutaneous 5x daily (with meals, nightly, & 0200) insulin lispro 20 Units subcutaneous TID with meals lisinopril 20 mg oral Daily oxybutynin XL 5 mg oral Daily polyethylene glycol 17 g oral Daily rivaroxaban 20 mg oral Daily with dinner rOPINIRole 5 mg oral Nightly Current Facility-Administered Medications: ??? albuterol (PROVENTIL,VENTOLIN) 2.5 mg /3 mL (0.083 %) nebulizer solution 5 mg, 5 mg, nebulization, Q4H PRN (RT), Enmanuel Dubon MD, 5 mg at 11/03/17 0500 ??? albuterol HFA (PROVENTIL HFA,VENTOLIN HFA,PROAIR HFA) 90 mcg/actuation inhaler 2 puff, 2 puff, inhalation, Q4H PRN (RT), Britney Zavala NP ??? cyclobenzaprine (FLEXERIL) tablet 5 mg, 5 mg, oral, TID PRN, Britney Zavala NP, 5 mg at 11/03/17 1601 ??? dextrose 50% (concentrated solution) CONCENTRATED solution 25 g, 25 g, intravenous, Q15 Min PRN, Lucy Yu, DO ??? dextrose 50% (concentrated solution) CONCENTRATED solution 25 g, 25 g, intravenous, Q15 Min PRN, Britney Zavala NP ??? dextrose oral liquid liquid 15 g, 15 g, oral, Q15 Min PRN, Lucy Yu, DO ??? diphenhydrAMINE (BENADRYL) tab/cap 25 mg, 25 mg, oral, QID PRN, Britney Zavala NP, Stopped at 11/03/175 ??? exemestane (AROMASIN) tablet 25 mg, 25 mg, oral, Daily, Britney Zavala NP, 25 mg at ??? fluticasone (FLONASE) 50 mcg/actuation nasal spray 1 spray, 1 spray, each nostril, BID, Britney Zavala NP, Stopped at 11/02/172016 ??? gabapentin (NEURONTIN) capsule 100 mg, 100 mg, oral, TID, Britney Zavala NP, 100 mg at 11/03/17 1538 ??? glucagon injection 1 mg, 1 mg, intramuscular, Q30 Min PRN, Lucy Yu, DO ??? HYDROcodone-acetaminophen (NORCO) 5-325 mg per tablet 1 tablet, 1 tablet, oral, Q4H PRN, Britney Zavala NP, 1 tablet at 11/03/17 1601 ??? insulin glargine (LANTUS) injection 30 Units, 30 Units, subcutaneous, BID, Tessie Morin MD, 30 Units at 11/03/17 0836 ??? insulin lispro (HumaLOG) injection 2-16 Units, 2-16 Units, subcutaneous, 5x daily (with meals, nightly, & 0200), Tessie Morin MD, 2 Units at 11/03/17 1215 ??? insulin lispro (HumaLOG) injection 20 Units, 20 Units, subcutaneous, TID with meals, Tessie Morin MD, 20 Units at 11/03/17 1211 ??? lisinopril (PRINIVIL,ZESTRIL) tablet 20 mg, 20 mg, oral, Daily, Britney Zavala NP, 20 mg at 11/03/17 0834 ??? nitroglycerin (NITROSTAT) sublingual tablet 0.4 mg, 0.4 mg, sublingual, Q5 Min PRN, Enmanuel Dubon MD ??? ondansetron (ZOFRAN) injection 4 mg, 4 mg, intravenous, Q4H PRN, Britney Zavala NP ??? oxybutynin XL (DITROPAN-XL) extended release tablet 5 mg, 5 mg, oral, Daily, Britney Zavala NP, 5 mg at 11/03/17 0835 ??? polyethylene glycol (MIRALAX) packet 17 g, 17 g, oral, Daily, Britney Zavala NP ??? prochlorperazine (COMPAZINE) injection 5 mg, 5 mg, intravenous, Q6H PRN, Britney Zavala NP ??? rivaroxaban (XARELTO) tablet 20 mg, 20 mg, oral, Daily with dinner, Jose Santos MD, 20 mg at 11/02/17 1643 ??? rOPINIRole (REQUIP) tablet 5 mg, 5 mg, oral, Nightly, Britney Zavala NP, 5 mg at 11/02/172010 ??? sodium chloride 0.9% infusion, 75 mL/hr, intravenous, Continuous, Lucy Yu DO, Last Rate:75 mL/hr at 11/03/17 1018, 75 mL/hr at 11/03/17 1018 Continuous Medications: sodium chloride 0.9% 75 mL/hr Last Rate: 75 mL/hr (11/03/17 1018) PRN Medications: ??? albuterol ??? albuterol HFA ??? cyclobenzaprine ??? dextrose 50% ??? dextrose 50% ??? dextrose ??? diphenhydrAMINE ??? glucagon ??? HYDROcodone-acetaminophen ??? nitroglycerin ??? ondansetron ??? prochlorperazine ASSESSMENT/PLAN: 62 y.o. obese WF pt with a PMHx significant for Morbid obesity,Left breast cancer,S/P Rodolfo . mastectomy,CHF,Depression,DM-2,Hypothyroidism,DVT,PE, RLS,HTN,OA, sleep apnea presented to the ED with a chief complaint of not feeling well,fatigued,with high blood sugars x 1 day. She was admitted with Principal Problem: -SOB,Palpitations: Likely sec to anxiety from hyperglycemia.Troponins x 3 neg. consulted Cardiology.CXR neg, CT chest neg.Resolved now. ? Active Problems: ?? --Uncontrolled DM-2: Likely sec to steroids. D/Seth Solumedrol,consulted Endocrinology,started on Lantus Insulin, increased AC Humalog insulin dose.On SSI.BS 160-300. --Possible allergic reaction to Trazodone: S/P IV Solumedrol x 1, IV Pepcid, IV Benadryl.D/Steh Trazodone and listed it as allergy.Now symptoms resolved. -Leukocytosis: Likely sec to steroids. Will watch. Afebrile.No signs and symptoms of infection. 11/01 UA neg,CXR neg. -Normocytic anemia: Stable Hgb.Monitor. --Morbid obesity: --H/O Left breast cancer, rodolfo Mastectomy: Continue Aromasin. --H/O Chronic CHF:Well compensated.Will D/C IVF. --H/O Depression: --H/O Hypothyroidism: --H/O DVT/PE:Continue Xarelto. --H/O HTN:Continue ACEI. --H/O RLS:Continue Requip. --H/O Sleep Apnea: --H/O OA: -H/O Low back pain and left sided sciatica: S/P Recent steroid injection on 10/31. ? Full Code ?? DVT Prophylaxis with Xarelto. D/W RN D/C to home when blood sugars are under much better control. Bia Hensley MD 11/03/2017 4:18 PM documented in this encounter H&P Notes * Bia Hensley MD - 11/02/2017 9:15 AM CDT History and Physical Date of Service: 11/02/2017 Primary Care Physician: Justen Gale MD [phone] SUBJECTIVE: Patient is a 62 y.o. female with a PMHx significant for Morbid obesity,Left breast cancer,S/P Rodolfo ,,mastectomy,CHF,Depression,DM-2,Hypothyroidism,DVT,PE, RLS,HTN,OA sleep apnea presented to the ED with a chief complaint of not feeling well,fatigued,withhigh blood sugars since yesterday.. HPI: 62 y.o. [place] WF pt with a PMHx significant for Morbid obesity,Left breast cancer,S/P Rodolfo ,,mastectomy,CHF,Depression,DM-2,Hypothyroidism,DVT,PE, RLS,HTN,OA sleep apnea presented to the ED with a chief complaint of not feeling well,fatigued,withhigh blood sugars 360-480 since yesterday. Also noticed SOB , diaphoresis,and palpitations,shaking.No CP.No dizziness,no syncope.She felt nauseous and vomited x 1 at home.No fever,chills.She was discharged on 10/31 from here after she was admitted for severe low back pain and left sided sciatica aft er she was seen by spine surgeon and given steroid injection in back. Past Medical History: Diagnosis Date ??? Adiposity [...] 90 mcg/actuation inhaler Inhale 2 puffs every 4 (four) hours as needed for wheezing. (Patient not taking: Reported on 11/02/2017 ) 1 Inhaler 0Not Taking at Unknown time ??? cyclobenzaprine (FLEXERIL) 5 mg tablet Take 1 tablet (5 mg total) by mouth 3 (three) times a day as needed for muscle spasms for up to 30 doses. 30 tablet 0 Past Week at Unknown time ??? exemestane (AROMASIN) 25 mg tablet Take 25 mg by mouth daily. After a meal Unknown at Unknown time ??? fluticasone (FLONASE) 50 mcg/actuation nasal spray Administer 1 spray into each nostril 2 (two)times a day. (Patient not taking: Reported on 11/02/2017 ) 16 g 0 Unknown at Unknown time ??? gabapentin (NEURONTIN) 100 mg capsule Take 1 capsule (100 mg total) by mouth 3 (three) times a day. 90 capsule 0 Unknown at Unknown time ??? glimepiride (AMARYL) 2 mg tablet Take 1 tablet (2 mg total) by mouth daily before breakfast. 0 Unknown at Unknown time ??? HYDROcodone-acetaminophen (NORCO) 5-325 mg per tablet Take 1 tablet by mouth every 8 (eight) hours as needed for pain. 20 tablet 0 Unknown at Unknown time ??? lisinopril (PRINIVIL,ZESTRIL) 20 mg tablet take 1 Tablet (20MG) by oral route every day (Patient taking differently: Take 20 mg by mouth daily. ) 0 Unknown at Unknown time ??? oxybutynin (DITROPAN) 5 mg tablet take 1 tablet by oral route every day (Patient taking differently: Take 5 mg by mouth daily. ) 0 0 Unknown at Unknown time ??? polyethylene glycol (MIRALAX) 17 gram/dose powder Mix 1 scoop (17 g) in 8 oz of water and drinkdaily. (Patient taking differently: daily as needed. Mix 1 scoop (17 g) in 8 oz of water and drink daily. ) 527 g 0 Unknown at Unknown time ??? rivaroxaban (XARELTO) 10 mg tablet Take 20 mg by mouth daily. Unknown at Unknown time ??? rOPINIRole (REQUIP) 5 mg tablet take 1 tablet (5MG) by oral route every day at bedtime (Patienttaking differently: Take 5 mg by mouth nightly. ) 0 11/01/2017 at Unknown time ??? sitaGLIPtin-metformin (JANUMET) 50-1,000 mg per tablet Take 1 tablet by mouth daily. 11/01/2017 at Unknown time Allergies Allergen Reactions ??? Ceftriaxone Anaphylaxis R ??? Cephalosporins Anaphylaxis ??? Metoclopramide Other (See comments) Restless leg syndrome ??? Oxycodone Vomiting Social History Substance Use Topics ??? Smoking status: Former Smoker ??? Smokeless tobacco: Never Used Comment: remote tobacco use ??? Alcohol use No ,has 3 children, lives with her daughter,denies any current cigarette smoking,ETOH drinking or drug abuse.Smoked cigarettes several years ago. Family History Problem Relation Age of Onset [...] of restless leg syndrome; Review of Systems No fever,chills. No neck pain. No cough,chest pain,wheezing No abdominal pain,diarrhea. No headache Increased urinary frequency+ No hematuria, urgency, dysuria,incontinence or retention of urine. OBJECTIVE: Vitals: Arrival Vitals Temp 11/01/17 1752 36.5 ??C (97.7 ??F) Pulse 11/01/17 1752 97 Resp 11/01/17 1752 18 BP 11/01/17 1752 145/81 SpO2 11/01/17 1752 98 % Temp src 11/01/17 1752 Oral Heart Rate Source -- Patient Position 11/02/17 0445 Lying BP Location 11/02/17 0320 Right arm FiO2 (%) 11/02/17 0603 21 % Most Recent : Vitals: 11/02/17 0445 11/02/17 0526 11/02/17 0800 11/02/17 0814 BP: 133/80 113/71 BP Location: Right arm Patient Position: Lying Pulse: 75 64 85 83 Resp: 22 19 Temp: 36.7 ??C (98.1 ??F) 36.8 ??C (98.2 ??F) TempSrc: Oral Oral SpO2: 96% 97% Weight: 126.2 kg (278 lb 3.5 oz) Height: 154.9 cm (5' 1 ) I/O last 2 completed shifts: In: 1000 [IV Piggyback:1000] Out: - I/O this shift: In: 480 [P.O.:480] Out: - Physical Exam General: Up on bed,awake,alert,NAD,on RA SHEENT:Skin warm,dry,no rashes. No icterus,no cyanosis,no pallor,EOMI. Neck:Supple Respi:CTA rodolfo Cardio:RRR,no murmur GI:Abdomen obese,soft,bowel sounds +,non tender,not distended. Extre:No edema,no cyanosis,no pallor Neuro:Non focal Psych:Mood/Affect normal.Behavior normal. Lab/Radiology/Diagnostic Review: Recent Results (from the past 24 hour(s)) POCT glucose Collection Time: 11/01/17 5:59 PM Result Value Ref Range Glucose, POC, bld 439 (H) 70 - 199 mg/dL Urinalysis reflex to microscopic and culture Urine Collection Time: 11/01/17 6:30 PM Result Value Ref Range Color, ur Straw Yellow Clarity, ur Clear Clear Specific gravity, ur 1.026 (H) 1.010 - 1.025 pH, urine 6.0 Protein, ur ql Negative Negative Glucose, ur ql 3+ (A) Negative Ketones, ur Negative Negative Bilirubin, ur Negative Negative Blood, ur 2+ (A) Negative Urobilinogen, ur <2.0 <2.0 mg/dL Nitrite, ur Negative Negative Leukocyte esterase, ur 1+ (A) Negative Urinalysis, microscopic only Collection Time: 11/01/17 6:30 PM Result Value Ref Range WBC, ur 0-5 0 - 5 /HPF RBC, ur 0-5 0 - 5 /HPF CBC with auto differential Collection Time: 11/01/17 7:11 PM Result Value Ref Range WBC 17.1 (H) 3.8 - 9.9 K/cumm RBC 4.69 3.90 - 5.20 M/cumm Hgb 12.7 11.9 - 15.5 g/dL Hct 40.6 35.6 - 45.5 % MCV 86.6 81.3 - 96.4 fL MCH 27.1 27.1 - 33.3 pg MCHC 31.3 (L) 32.3 - 35.7 g/dL RDW CV 14.9 11.1 - 14.9 % RDW SD 47.1 35.7 - 48.1 fL Plt 347 150 - 400 K/cumm MPV 10.4 9.1 - 12.3 fL NRBC Abs 0.00 0.00 - 0.01 K/cumm Comprehensive metabolic panel Collection Time: 11/01/17 7:11 PM Result Value Ref Range Sodium 134 (L) 135 - 145 mmol/L Potassium, pl 5.0 3.5 - 5.1 mmol/L Chloride 103 100 - 114 mmol/L CO2 24 22 - 32 mmol/L Anion Gap 12 8 - 16 mmol/L BUN 25 (H) 8 - 24 mg/dL Creatinine 0.90 0.60 - 1.30 mg/dL Glucose 429 (H) 70 - 199 mg/dL Calcium 9.7 8.4 - 10.5 mg/dL Bilirubin, total 0.50 0.10 - 1.30 mg/dL Protein, pl 7.8 6.0 - 8.3 g/dL Albumin 3.4 3.2 - 4.8 g/dL Alk phos 81 30 - 110 Units/L ALT 25 1 - 45 Units/L AST 22 7 - 40 Units/L B-type natriuretic peptide Collection Time: 11/01/17 7:11 PM Result Value Ref Range B-Type Natriuretic Peptide (BNP) 34 0 - 100 pg/mL Troponin I Collection Time: 11/01/17 7:11 PM Result Value Ref Range Troponin I 0.05 0.00 - 0.14 ng/mL Differential, auto Collection Time: 11/01/17 7:11 PM Result Value Ref Range Neutrophil absolute 14.2 (H) 1.7 - 6.5 K/cumm Immature granulocyte absolute 0.1 0.0 - 0.1 K/cumm Lymphocytes absolute 1.6 0.8 - 3.3 K/cumm Monocyte absolute 1.2 (H) 0.2 - 0.8 K/cumm Eosinophils absolute 0.0 0.0 - 0.5 K/cumm Basophils, abs 0.0 0.0 - 0.1 K/cumm Neutrophils 82.8 % Immature granulocytes 0.8 % Lymphocytes 9.5 % Monocytes 6.7 % Eosinophils 0.0 % Basophils 0.2 % eGFR Collection Time: 11/01/17 7:11 PM Result Value Ref Range GFR 69 mL/min/1.73 m2 POCT glucose Collection Time: 11/01/17 7:37 PM Result Value Ref Range Glucose, POC, bld 402 (H) 70 - 199 mg/dL POCT glucose Collection Time: 11/01/17 9:58 PM Result Value Ref Range Glucose, POC, bld 344 (H) 70 - 199 mg/dL Troponin I Collection Time: 11/01/17 10:36 PM Result Value Ref Range Troponin I <0.03 0.00 - 0.14 ng/mL POCT glucose Collection Time: 11/02/17 12:18 AM Result Value Ref Range Glucose, POC, bld 291 (H) 70 - 199 mg/dL Troponin I Collection Time: 11/02/17 1:40 AM Result Value Ref Range Troponin I <0.03 0.00 - 0.14 ng/mL POCT glucose Collection Time: 11/02/17 3:49 AM Result Value Ref Range Glucose, POC, bld 266 (H) 70 - 199 mg/dL POCT glucose Collection Time: 11/02/17 4:56 AM Result Value Ref Range Glucose, POC, bld 242 (H) 70 - 199 mg/dL POCT glucose Collection Time: 11/02/17 6:47 AM Result Value Ref Range Glucose, POC, bld 229 (H) 70 - 199 mg/dL Troponin I Collection Time: 11/02/17 8:14 AM Result Value Ref Range Troponin I <0.03 0.00 - 0.14 ng/mL Lipid panel Collection Time: 11/02/17 8:14 AM Result Value Ref Range Cholesterol 178 100 - 200 mg/dL Triglycerides 86 10 - 150 mg/dL HDL 51 40 - 59 mg/dL LDL, calculated 110 60 - 129 mg/dL Non-HDL, (LDL+VLDL) 127 mg/dL Xr Spine Lumbar 2 Or 3 Views Result Date: 10/31/2017 Narrative: The images from this study are not interpreted by Radiology. Please refer to the physician's procedure / OR operative note. Ct Lumbar Spine Wo Contrast Result Date: 10/09/2017 Narrative: RESULT: Examination: CT LUMBAR SPINE WO CONTRAST Date: 10/09/2017 11:00 AM Clinical History: Pain with decreased sensation in the left leg. Technique: Noncontrast CT lumbar spine with 2-D reformats views obtained. Comparison: CT lumbar spine 01/04/2017 Findings: A transitional vertebra isseen at the lumbosacral junction labeled L5 with sacralization. A rudimentary incomplete L5-S1 discis present. Minimal grade 1 spondylolisthesis is again seen at L4-L5. Lumbar vertebral height alignment is otherwise maintained. Mild disc narrowing is seen at L2-L3. Disc heights otherwise maintained except for rudimentary L5-S1 disc. Mild to moderate right L3-L4 foraminal stenosis from disc osteophyte again noted. There is mild narrowing of the left L4-L5 foramen from foraminal disc, endplate and facet osteophyte unchanged. Bilateral SI joint sclerosis, vacuum phenomenon and osteophyte is again present with mild erosive change. Nonobstructing 3 mm right renal calculus is noted. L1-L2: The disc is unremarkable. This mild facet arthropathy but no central or lateral recess stenosis. L2-L3: Bulging disc with facet arthropathy and ligamentum flavum laxity is present. There is epidural lipomatosis ventral sac effacement with mild central and lateral recess stenosis. L3-L4: Degenerated bulging disc is seen with small right subarticular and foraminal protrusion with endplate osteophyte unchanged. Facet arthropathy is seen with ligamenta flavum laxity but there is no central or lateral recess stenosis. L4-L5: Bulging disc is seen with moderate to severe left moderate right facet arthropathy and ligamentum flavum laxity with encroachment on the left lateral recess. No central or right lateral recess stenosis is seen. L5-S1: A rudimentary incomplete disc is seen otherwise unremarkable. Impression: TRANSITIONAL VERTEBRA AT LUMBOSACRAL JUNCTION LABELED L5 WITH SACRALIZATION AND RUDIMENTARY L5-S1 DISC. L2-L3 DISC BULGING, FACET ARTHROPATHY, EPIDURAL LIPOMATOSIS, MILD CENTRAL AND LATERAL RECESS STENOSIS. L3-L4 BULGING DISC WITH SMALL SUBARTICULAR AND FORAMINAL PROTRUSION WITH L3 ROOTENCROACHMENT. L4-L5 DISC BULGING WITH MODERATE TO MARKED FACET ARTHROPATHY WORSE LEFT WITH LEFT LATERAL RECESS STENOSIS. NONOBSTRUCTING RIGHT NEPHROLITHIASIS. BILATERAL SI JOINT OSTEOARTHRITIS Electronically signed by: Maria Elena Shin M.D. Xr Chest 1 Vw Portable Result Date: 11/01/2017 Narrative: EXAM: Portable chest DATE: 11/01/2017 7:30 PM CLINICAL HISTORY: Chest pain, shortness of breath, rapid heart rate, hypertension and hyperglycemia FINDINGS: A single portable AP view of the chest was submitted for review. Comparison was made to a prior two-view chest from 08/18/2017. The lungs are clear. The pulmonary vasculature is normal. There is no evidence of pneumothorax or pleuraleffusion on this single view exam. The heart size is stable. The aortic contour is normal. Impression: No acute cardiopulmonary process. Electronically signed by: Sara Burk M.D. Mri Lumbar Spine Wo Contrast Result Date: 10/27/2017 Narrative: EXAMINATION: Magnetic resonance imaging (MRI) of the lumber spine without contrast. HISTORY: Low back pain. TECHNIQUE: Multiplanar multi-weighted MRI of the lumbar spine was performed without intravenous contrast using the standard lumbar spine protocol. COMPARISON: None available. FINDINGS: Transitional vertebral anatomy with sacralization of L5 with a rudimentary L5-S1 disc. Alignment of the lumbar spine is normal. There is disc bulging and desiccation of L1-L2 through L4-L5. Thereare scattered hemangiomata in the lower thoracic spine and sacrum. Conus terminates at T12-L1. Signal within the visualized lower cord is normal. There is mild edema in lumbar subcutaneous tissues. L1-L2: Minimal bulge. There is mild facet arthropathy. There is no neuroforaminal stenosis. There is no spinal canal stenosis. L2-L3: Leftward disc bulge. There is mild facet arthropathy. There is no neuroforaminal stenosis. There is no spinal canal stenosis L3-L4: Right eccentric disc bulge. There is mild facet arthropathy. There is mild right neuroforaminal stenosis. There is no spinal canal stenosis L4-L5: Mild bulge. There is moderate left greater than right facet arthropathy. There is mild left neuroforaminal stenosis. There is no spinal canal stenosis L5-S1: Not included on the axial series. Sacralized L5 with a rudimentary disc. No gross canal narrowing at this level. Impression: Mild to moderate degenerative changes as described above, without at most mild left neuroforaminal narrowing at L4-L5 Electronically signed by: Melvin Knight M.D. Us Vein Duplex Lower Extremity Left Limited Result Date: 10/09/2017 Narrative: Procedure: US VEIN DUPLEX LOWER EXTREMITY LEFT LIMITED HISTORY: Left lower extremity pain and swelling. Possible deep venous thrombosis. TECHNIQUE: Left lower extremity venous duplex ultrasound scan that used graded compression of deep veins and duplex Doppler color flow scans from groins to popliteal fossa. FINDINGS: Common femoral, femoral, popliteal and visualized portions of the infrapopliteal veins show normal compressibility. Normal venous flow also documented. No intraluminal echogenic thrombus is seen in the visualized veins. Impression: No femoropopliteal venous thrombosis seen in the left lower extremity. Electronically signed by: Aguila Grijalva M.D. Ct Chest Pe W Contrast Result Date: 11/02/2017 Narrative: EXAM: CT chest with contrast PE protocol DATE: 11/01/2017 10:45 PM CLINICAL HISTORY: Shortness of breath, history of pulmonary embolus TECHNIQUE: After the uneventful intravenous administration of 93 mL Optiray 350, computed tomographic images of the chest were obtained in the axial plane. Coronal and oblique sagittal reformatted images were performed. Comparison was made to a prior CT chest with contrast from 08/03/2017. FINDINGS: The aorta and its proximal branches are patent without evidence of thrombus, embolus or dissection. The main pulmonary artery, right and left pulmonary arteries and pulmonary artery branches are normal without evidence of thrombus, embolus or dissection. The lungs are clear. The pulmonary vasculature is normal. There is no pneumothorax or pleural effusion. The trachea and mainstem bronchi are patent. The visible portion of the right thyroid lobe is slightly prominent in size. The visible portion of the thyroid gland is heterogenous in appearance wi th suspicion for hypoechoic nodules. The heart size is normal. A prevascular lymph node measures 10mm in short axis diameter. There is no axillary adenopathy. The visible portions of the upper abdomen are normal. The subcutaneous tissues are normal. There is mild multilevel thoracic spine degenerative disc disease. Impression: No evidence of pulmonary embolus or aortic dissection. A stat report was issued by Suzanne 11/02/2017 at 0018. Electronically signed by: Sara Burk M.D. ASSESSMENT/PLAN: 62 y.o. [place] WF pt with a PMHx significant for Morbid obesity,Left breast cancer,S/P Rodolfo ,,mastectomy,CHF,Depression,DM-2,Hypothyroidism,DVT,PE, RLS,HTN,OA sleep apnea presented to the ED with a chief complaint of not feeling well,fatigued,withhigh blood sugars 360-480 x 1 day Primary Problem: -SOB,Palpitations: R/O Acute coronary event vs sec to hyperglycemia.Troponins x 3 neg. Will consultCardiology.CXR neg, CT chest neg. Active Problems: --Uncontrolled DM-2: Likely sec to steroids. Will D/C Solumedrol,consult Endocrinology,start LantusInsulin increase Humalog insulin dose. --Morbid obesity: --H/O Left breast cancer, rodolfo Mastectomy: Continue Aromasin. --H/O Chronic CHF:Well compensated. --H/O Depression: --H/O Hypothyroidism: --H/O DVT/PE:Continue Xarelto. --H/O HTN:Continue ACEI. --H/O RLS:Continue Requip. --H/O Sleep Apnea: --H/O OA: -H/O Low back pain and left sided sciatica: S/P Recent steroid injection on 10/31. Full Code DVT Prophylaxis with Xarelto. ESTIMATED LENGTH OF STAY: <2 in patient midnights. D/W RN Bia Hensley MD 11/02/2017 9:15 AM documented in this encounter Consult Notes * Tessie Morin MD - 11/02/2017 5:32 PM CDTAssociated Order(s): IP CONSULT TO ENDOCRINOLOGY Endocrine Diabetes Consult Reason for Consult: uncontrolled diabetes Requesting Provider: Bia Valdes MD CC: Chief Complaint Patient presents with ??? Hyperglycemia ??? Weakness - Generalized ??? Shortness of Breath HPI: Mohsen Marques is a 62 y.o. female is seen in consultation for uncontrolled DM type 2. Pt. With known h/o DM type 2, morbid obesity ,DVT, PE, HTN, LUL Presented to ER c/o High BS , and feeling tired and weak. Pt. BS were in in 300-400 range. She c/o excessive sweating, and dizzy spell. Pt. Gives a h/o that she received recently some steroid joint injections , also on admission pt.Was stared on IV steroid. Pt. received 2 doses of Iv solumedrol today, later her steroids were discontinued. Pt. BS were running very high today. Therefore Endocrinology consult called in for furtherDM management. Pt. Gives a h/o DM type 2, diagnosed over atleast 5-6 yrs. At home currently takes Janumet 50-1000 mg oral twice daily, recent A1c 10/27/2017 was 9.2 % , therefore pt. PCP recently started pt on Glimepiride 2 mg oral daily , which pt still did not start taking it. Pt. Also planning to get more steroid shots to her lower back next week. Pt. DM is complicated by neuropathy in feet. Past Medical History: Diagnosis Date ??? Adiposity [...] 90 mcg/actuation inhaler Inhale 2 puffs every 4 (four) hours as needed for wheezing. (Patient not taking: Reported on 11/02/2017 ) 1 Inhaler 0Not Taking at Unknown time ??? cyclobenzaprine (FLEXERIL) 5 mg tablet Take 1 tablet (5 mg total) by mouth 3 (three) times a day as needed for muscle spasms for up to 30 doses. 30 tablet 0 Past Week at Unknown time ??? exemestane (AROMASIN) 25 mg tablet Take 25 mg by mouth daily. After a meal Unknown at Unknown time ??? fluticasone (FLONASE) 50 mcg/actuation nasal spray Administer 1 spray into each nostril 2 (two)times a day. (Patient not taking: Reported on 11/02/2017 ) 16 g 0 Unknown at Unknown time ??? gabapentin (NEURONTIN) 100 mg capsule Take 1 capsule (100 mg total) by mouth 3 (three) times a day. 90 capsule 0 Unknown at Unknown time ??? glimepiride (AMARYL) 2 mg tablet Take 1 tablet (2 mg total) by mouth daily before breakfast. 0 Unknown at Unknown time ??? HYDROcodone-acetaminophen (NORCO) 5-325 mg per tablet Take 1 tablet by mouth every 8 (eight) hours as needed for pain. 20 tablet 0 Unknown at Unknown time ??? lisinopril (PRINIVIL,ZESTRIL) 20 mg tablet take 1 Tablet (20MG) by oral route every day (Patient taking differently: Take 20 mg by mouth daily. ) 0 Unknown at Unknown time ??? oxybutynin (DITROPAN) 5 mg tablet take 1 tablet by oral route every day (Patient taking differently: Take 5 mg by mouth daily. ) 0 0 Unknown at Unknown time ??? polyethylene glycol (MIRALAX) 17 gram/dose powder Mix 1 scoop (17 g) in 8 oz of water and drinkdaily. (Patient taking differently: daily as needed. Mix 1 scoop (17 g) in 8 oz of water and drink daily. ) 527 g 0 Unknown at Unknown time ??? rivaroxaban (XARELTO) 10 mg tablet Take 20 mg by mouth daily. Unknown at Unknown time ??? rOPINIRole (REQUIP) 5 mg tablet take 1 tablet (5MG) by oral route every day at bedtime (Patienttaking differently: Take 5 mg by mouth nightly. ) 0 11/01/2017 at Unknown time ??? sitaGLIPtin-metformin (JANUMET) 50-1,000 mg per tablet Take 1 tablet by mouth daily. 11/01/2017 at Unknown time Current Facility-Administered Medications Medication Dose Route Frequency Provider Last Rate Last Dose ??? albuterol (PROVENTIL,VENTOLIN) 2.5 mg /3 mL (0.083 %) nebulizer solution 5 mg 5 mg [id number] PRN (RT) Enmanuel Dubon MD ??? albuterol HFA (PROVENTIL HFA,VENTOLIN HFA,PROAIR HFA) 90 mcg/actuation inhaler 2 puff 2 puff inhalation Q4H PRN (RT) Britney Zavala NP ??? cyclobenzaprine (FLEXERIL) tablet 5 mg 5 mg oral TID PRN Britney Zavala NP ??? dextrose 50% (concentrated solution) CONCENTRATED solution 25 g 25 g intravenous Q15 Min PRN Lucy Yu, ??? dextrose 50% (concentrated solution) CONCENTRATED solution 25 g 25 g intravenous Q15 Min PRN Britney Zavala NP ??? dextrose oral liquid liquid 15 g 15 g oral Q15 Min PRN Lucy Yu, DO ??? diphenhydrAMINE (BENADRYL) tab/cap 25 mg 25 mg oral QID PRN Britney Zavala NP ??? exemestane (AROMASIN) tablet 25 mg 25 mg oral Daily Britney Zavala NP 25 mg at 11/02/17 1248 ??? fluticasone (FLONASE) 50 mcg/actuation nasal spray 1 spray 1 spray each nostril BID Britney Zavala NP ??? gabapentin (NEURONTIN) capsule 100 mg 100 mg oral TID Britney Zavala NP 100 mg at 11/02/17 1634 ??? glucagon injection 1 mg 1 mg intramuscular Q30 Min PRN Lucy Yu, DO ??? HYDROcodone-acetaminophen (NORCO) 5-325 mg per tablet 1 tablet 1 tablet oral Q4H PRN Britney Zavala NP 1 tablet at 11/02/17 1248 ??? insulin glargine (LANTUS) injection 40 Units 40 Units subcutaneous Nightly Tessie Morin MD ??? insulin lispro (HumaLOG) injection 15 Units 15 Units subcutaneous TID with meals Tessie Morin MD ??? insulin lispro (HumaLOG) injection 2-10 Units 2-10 Units subcutaneous 5x daily (with meals, nightly, & 0200) Tessie Morin MD ??? lisinopril (PRINIVIL,ZESTRIL) tablet 20 mg 20 mg oral Daily Britney Zavala NP 20 mg at 11/02/17 0806 ??? nitroglycerin (NITROSTAT) sublingual tablet 0.4 mg 0.4 mg sublingual Q5 Min PRN Enmanuel Dubon MD ??? ondansetron (ZOFRAN) injection 4 mg 4 mg intravenous Q4H PRN Britney Zavala NP ??? oxybutynin XL (DITROPAN-XL) extended release tablet 5 mg 5 mg oral Daily Britney Zavala NP 5mg at 11/02/17 1101 ??? polyethylene glycol (MIRALAX) packet 17 g 17 g oral Daily Britney Torbert, SAMPLE SAWYER ??? prochlorperazine (COMPAZINE) injection 5 mg 5 mg intravenous Q6H PRN Britney Zavala NP ??? rivaroxaban (XARELTO) tablet 20 mg 20 mg oral Daily with dinner Jose Santos MD 20 mg at 11/02/17 1643 ??? rOPINIRole (REQUIP) tablet 5 mg 5 mg oral Nightly Britney Zavala NP ??? sodium chloride 0.9% infusion 75 mL/hr intravenous Continuous Lucy Glenssi, DO 75 mL/hr at 11/02/17 07 75 mL/hr at 11/02/17 07 Allergies Allergen Reactions ??? Ceftriaxone Anaphylaxis R ??? Cephalosporins Anaphylaxis ??? Metoclopramide Other (See comments) Restless leg syndrome ??? Oxycodone Vomiting Social History Substance Use Topics ??? Smoking [...] Systems Constitutional: Positive for fatigue. Negative for appetite change, chills, fever and unexpected weight change. HENT: Negative for dental problem, ear pain, hearing loss, sore throat, trouble swallowing and voice change. Eyes: Negative for pain and visual disturbance. Respiratory: Negative for cough, shortness of breath and wheezing. Cardiovascular: Negative for chest pain, palpitations and leg swelling. Gastrointestinal: Negative for abdominal pain, constipation, diarrhea, nausea and vomiting. Endocrine: Positive for polydipsia and polyuria. Negative for cold intolerance and heat intolerance. Genitourinary: Positive for frequency. Negative for difficulty urinating, dysuria and urgency. Musculoskeletal: Positive for back pain. Negative for gait problem, joint swelling, myalgias, neck pain and neck stiffness. Skin: Negative for rash and wound. Allergic/Immunologic: Negative for environmental allergies and food allergies. Neurological: Negative for dizziness, tremors, seizures, speech difficulty, weakness, light-headedness, numbness and headaches. Hematological: Negative for adenopathy. Does not bruise/bleed easily. Psychiatric/Behavioral: Negative for behavioral problems, confusion, dysphoric mood and sleep disturbance. The patient is not nervous/anxious. Objective Vitals: 24hr Min/Max: Temp Min: 36.5 ??C (97.7 ??F) Max: 37 ??C (98.6 ??F) Pulse Min: 62 Max: 101 BP Min: 107/57 Max: 145/81 Resp Min: 13 Max: 27 SpO2 Min: 93 % Max: 100 % Most Recent : Vitals: 11/02/17 0814 11/02/17 1139 11/02/17 1146 11/02/17 1539 BP: 113/71 107/57 108/59 BP Location: Patient Position: Pulse: 83 101 76 79 Resp: Temp: 36.8 ??C (98.2 ??F) 36.6 ??C (97.8 ??F) 37 ??C (98.6 ??F) TempSrc: Oral SpO2: 97% 96% 95% Weight: Height: Physical Exam: Physical Exam Constitutional: She is oriented to person, place, and time. She is active. No distress. Morbidly obese + HENT: Head: Normocephalic and atraumatic. Eyes: Conjunctivae and EOM are normal. Neck: Neck supple. No thyromegaly present. Cardiovascular: Normal rate, regular rhythm and normal heart sounds. Pulses: Dorsalis pedis pulses are 2+ on the right side, and 2+ on the left side. Posterior tibial pulses are 2+ on the right side, and 2+ on the left side. Pulmonary/Chest: Effort normal and breath sounds normal. Abdominal: Soft. Bowel sounds are normal. She exhibits no mass. There is no tenderness. Musculoskeletal: Normal range of motion. She exhibits no edema or tenderness. Feet: Right Foot: Skin Integrity: Negative for ulcer. Left Foot: Skin Integrity: Negative for ulcer. Neurological: She is alert and oriented to person, place, and time. She has normal reflexes. Skin: Skin is warm and dry. Psychiatric: She has a normal mood and affect. Judgment and thought content normal. Lab/Radiology/Diagnostic Review: Reviewed. Recent Results (from the past 48 hour(s)) POCT glucose Collection Time: 11/01/17 5:59 PM Result Value Ref Range Glucose, POC, bld 439 (H) 70 - 199 mg/dL Urinalysis reflex to microscopic and culture Urine Collection Time: 11/01/17 6:30 PM Result Value Ref Range Color, ur Straw Yellow Clarity, ur Clear Clear Specific gravity, ur 1.026 (H) 1.010 - 1.025 pH, urine 6.0 Protein, ur ql Negative Negative Glucose, ur ql 3+ (A) Negative Ketones, ur Negative Negative Bilirubin, ur Negative Negative Blood, ur 2+ (A) Negative Urobilinogen, ur <2.0 <2.0 mg/dL Nitrite, ur Negative Negative Leukocyte esterase, ur 1+ (A) Negative Urinalysis, microscopic only Collection Time: 11/01/17 6:30 PM Result Value Ref Range WBC, ur 0-5 0 - 5 /HPF RBC, ur 0-5 0 - 5 /HPF ECG 12 lead Collection Time: 11/01/17 6:31 PM Result Value Ref Range Patient age 62 years Interpretation Text SINUS RHYTHMPOSSIBLE RIGHT VENTRICULAR CONDUCTION DELAYBORDERLINE ECGPREVIOUS TRACIN08/18/2017 15.17No significant change compared to prior ECG Ventricular Rate EKG/Min 88 /min P Wave Duration 111 ms QRS-Interval (MSEC) 80 ms VA-Interval (MSEC) 134 ms QT Interval 350 ms QTc 399 ms QTC Interval ms P Burr 59 deg QRS Burr 20 deg T Burr 52 deg CBC with auto differential Collection Time: 11/01/17 7:11 PM Result Value Ref Range WBC 17.1 (H) 3.8 - 9.9 K/cumm RBC 4.69 3.90 - 5.20 M/cumm Hgb 12.7 11.9 - 15.5 g/dL Hct 40.6 35.6 - 45.5 % MCV 86.6 81.3 - 96.4 fL MCH 27.1 27.1 - 33.3 pg MCHC 31.3 (L) 32.3 - 35.7 g/dL RDW CV 14.9 11.1 - 14.9 % RDW SD 47.1 35.7 - 48.1 fL Plt 347 150 - 400 K/cumm MPV 10.4 9.1 - 12.3 fL NRBC Abs 0.00 0.00 - 0.01 K/cumm Comprehensive metabolic panel Collection Time: 11/01/17 7:11 PM Result Value Ref Range Sodium 134 (L) 135 - 145 mmol/L Potassium, pl 5.0 3.5 - 5.1 mmol/L Chloride 103 100 - 114 mmol/L CO2 24 22 - 32 mmol/L Anion Gap 12 8 - 16 mmol/L BUN 25 (H) 8 - 24 mg/dL Creatinine 0.90 0.60 - 1.30 mg/dL Glucose 429 (H) 70 - 199 mg/dL Calcium 9.7 8.4 - 10.5 mg/dL Bilirubin, total 0.50 0.10 - 1.30 mg/dL Protein, pl 7.8 6.0 - 8.3 g/dL Albumin 3.4 3.2 - 4.8 g/dL Alk phos 81 30 - 110 Units/L ALT 25 1 - 45 Units/L AST 22 7 - 40 Units/L B-type natriuretic peptide Collection Time: 11/01/17 7:11 PM Result Value Ref Range B-Type Natriuretic Peptide (BNP) 34 0 - 100 pg/mL Troponin I Collection Time: 11/01/17 7:11 PM Result Value Ref Range Troponin I 0.05 0.00 - 0.14 ng/mL Differential, auto Collection Time: 11/01/17 7:11 PM Result Value Ref Range Neutrophil absolute 14.2 (H) 1.7 - 6.5 K/cumm Immature granulocyte absolute 0.1 0.0 - 0.1 K/cumm Lymphocytes absolute 1.6 0.8 - 3.3 K/cumm Monocyte absolute 1.2 (H) 0.2 - 0.8 K/cumm Eosinophils absolute 0.0 0.0 - 0.5 K/cumm Basophils, abs 0.0 0.0 - 0.1 K/cumm Neutrophils 82.8 % Immature granulocytes 0.8 % Lymphocytes 9.5 % Monocytes 6.7 % Eosinophils 0.0 % Basophils 0.2 % eGFR Collection Time: 11/01/17 7:11 PM Result Value Ref Range GFR 69 mL/min/1.73 m2 POCT glucose Collection Time: 11/01/17 7:37 PM Result Value Ref Range Glucose, POC, bld 402 (H) 70 - 199 mg/dL ECG 12 lead Collection Time: 11/01/17 7:42 PM Result Value Ref Range Patient age 62 years Interpretation Text SINUS TACHYCARDIANONSPECIFIC T-WAVE ABNORMALITYABNORMAL RHYTHM ECGPREVIOUS TRACIN11/01/2017 18.31Compared to prior ECG Sinus tachycardia is new. Ventricular Rate EKG/Min 104 /min P Wave Duration 107 ms QRS-Interval (MSEC) 86 ms VA-Interval (MSEC) 125 ms QT Interval 352 ms QTc 429 ms QTC Interval ms P Burr 46 deg QRS Burr 19 deg T Burr 67 deg POCT glucose Collection Time: 11/01/17 9:58 PM Result Value Ref Range Glucose, POC, bld 344 (H) 70 - 199 mg/dL Troponin I Collection Time: 11/01/17 10:36 PM Result Value Ref Range Troponin I <0.03 0.00 - 0.14 ng/mL POCT glucose Collection Time: 11/02/17 12:18 AM Result Value Ref Range Glucose, POC, bld 291 (H) 70 - 199 mg/dL Troponin I Collection Time: 11/02/17 1:40 AM Result Value Ref Range Troponin I <0.03 0.00 - 0.14 ng/mL POCT glucose Collection Time: 11/02/17 3:49 AM Result Value Ref Range Glucose, POC, bld 266 (H) 70 - 199 mg/dL POCT glucose Collection Time: 11/02/17 4:56 AM Result Value Ref Range Glucose, POC, bld 242 (H) 70 - 199 mg/dL POCT glucose Collection Time: 11/02/17 6:47 AM Result Value Ref Range Glucose, POC, bld 229 (H) 70 - 199 mg/dL Troponin I Collection Time: 11/02/17 8:14 AM Result Value Ref Range Troponin I <0.03 0.00 - 0.14 ng/mL Lipid panel Collection Time: 11/02/17 8:14 AM Result Value Ref Range Cholesterol 178 100 - 200 mg/dL Triglycerides 86 10 - 150 mg/dL HDL 51 40 - 59 mg/dL LDL, calculated 110 60 - 129 mg/dL Non-HDL, (LDL+VLDL) 127 mg/dL ECG 12 lead Collection Time: 11/02/17 8:56 AM Result Value Ref Range Patient age 62 years Interpretation Text SINUS RHYTHM WITH SHORT VA INTERVALBORDERLINE ECGPREVIOUS TRACIN11/01/2017 19.42Compared to prior ECG Sinus tachycardia is no longer present. Ventricular Rate EKG/Min 73 /min P Wave Duration 103 ms QRS-Interval (MSEC) 80 ms VA-Interval (MSEC) 116 ms QT Interval 367 ms QTc 389 ms QTC Interval ms P Burr -6 deg QRS Burr 21 deg T Burr 36 deg POCT glucose Collection Time: 11/02/17 10:59 AM Result Value Ref Range Glucose, POC, bld 312 (H) 70 - 199 mg/dL Troponin I Collection Time: 11/02/17 11:48 AM Result Value Ref Range Troponin I <0.03 0.00 - 0.14 ng/mL CBC without differential Collection Time: 11/02/17 11:48 AM Result Value Ref Range WBC 14.7 (H) 3.8 - 9.9 K/cumm RBC 4.40 3.90 - 5.20 M/cumm Hgb 12.1 11.9 - 15.5 g/dL Hct 38.4 35.6 - 45.5 % MCV 87.3 81.3 - 96.4 fL MCH 27.5 27.1 - 33.3 pg MCHC 31.5 (L) 32.3 - 35.7 g/dL RDW CV 14.9 11.1 - 14.9 % RDW SD 48.0 35.7 - 48.1 fL Plt 303 150 - 400 K/cumm MPV 10.1 9.1 - 12.3 fL NRBC Abs 0.00 0.00 - 0.01 K/cumm Protime-INR Collection Time: 11/02/17 11:48 AM Result Value Ref Range PT 13.0 9.5 - 13.0 sec INR 1.15 0.90 - 1.20 aPTT Collection Time: 11/02/17 11:48 AM Result Value Ref Range APTT 31.4 25.0 - 37.0 sec Creatinine Collection Time: 11/02/17 11:48 AM Result Value Ref Range Creatinine 0.76 0.60 - 1.30 mg/dL eGFR Collection Time: 11/02/17 11:48 AM Result Value Ref Range GFR 85 mL/min/1.73 m2 POCT glucose Collection Time: 11/02/17 4:35 PM Result Value Ref Range Glucose, POC, bld 366 (H) 70 - 199 mg/dL Lab Results Component Value Date HGBA1C 9.2 (H) 10/27/2017 Assessment/Recommendations: 1. DM type 2, uncontrolled, with steroid induced acute severe hyperglycemia Recent A1c - 9.2 % - hold all oral hypoglycemic meds - started pt. On Basal - bolus regimen - Lantus 40 units SQ daily - Humalog 15 units TID with meals - Humalog high dose correctional scale - READJUSTED TO HIGH DOSE - WILL CUT BACK ONCE PT BS IMPROVE - pt. Currently off steroids - pt. Bs still high, takes atleast 12-18 hours to start improving - will continue to follow up - school vocational educator consult 2. Morbid obesity 3. CAD s/p stent 4 Chronic lower back with Sciatica - s/p steroids Thank you for allowing In taking care of Ms. Marques. Will continue to follow. Tessie Morin MD 11/02/2017 * Jose Santos MD - 11/02/2017 10:40 AM CDTAssociated Order(s): IP CONSULT TO CARDIOLOGY CARDIOLOGY CONSULT Patient Name: Mohsen Marques Date of : 1955 Primary Physician: Justen Gale MD Requesting Physician: @REQUEST@ Admission Date: 11/01/2017 Length of Stay: 0 DATE OF CONSULT: 11/02/2017 CHIEF COMPLAINT Chief Complaint Patient presents with ??? Hyperglycemia ??? Weakness - Generalized ??? Shortness of Breath HPI Mohsen Marques is a 62 y.o. female with hypertension, type 2 diabetes mellitus, history of DVT, history of recurrent PE (on chronic anticoagulation with rivaroxaban), left CA breast status post left mastectomy, radiation treatment, morbid obesity, back pain. Patient was admitted to the hospital with complaints of generalized fatigue and shortness of breath. Patient states that she was recentlyin the hospital and had steroid injections in the back for her severe back pain. Yesterday, patientstates that she woke up with generalized fatigue. She also had mild shortness of breath and chest pressure. Patient states that she checked her blood sugars which were 380, later in the day her bloodsugars were elevated at 480. Patient came to the hospital for further evaluation. Patient had episodes of chest discomfort in the past, had coronary angiogram done on 07/11/2013 in the setting of chest pain and abnormal MPI. Her coronary angiogram did not show any obstructive CAD.Patient had transient atrial tachycardia after catheterization, which resolved after IV metoprolol.Her recent echocardiogram from 08/03/2017 is reported to show normal LV systolic and diastolic function, mild MAC, mild TR, RVSP 40 mmHg. Patient gives history of DVT, and history of recurrent PE. She has been on chronic anticoagulation with rivaroxaban. On this admission, patient's EKG on admission which I personally evaluated showed sinus rhythm, no significant ST-T abnormalities. Subsequent EKG showed sinus tachycardia, nonspecific T-wave abnormalities, 30 EKG showed sinus rhythm, short VR interval. Troponin x4 is negative, BNP is unremarkable. Patient's white count was elevated with left shift. Patient had CT scan of the chest which was negative for PE. Chest x-ray is unremarkable. MEDICAL HISTORY hypertension, type 2 diabetes mellitus, history of DVT, history of recurrent PE (on chronic anticoagulation with rivaroxaban), left CA breast status post left mastectomy, radiation treatment, morbid obesity, back pain. she has a past surgical history that includes [...] Image Guidance (N/A, 07/25/2014); and Breast surgery. she is allergic to ceftriaxone; cephalosporins; metoclopramide; and oxycodone. Prescriptions Prior to Admission Medication Sig Dispense Refill Last Dose ??? albuterol HFA (PROVENTIL HFA,VENTOLIN HFA,PROAIR HFA) 90 mcg/actuation inhaler Inhale 2 puffs every 4 (four) hours as needed for wheezing. (Patient not taking: Reported on 11/02/2017 ) 1 Inhaler 0Not Taking at Unknown time ??? cyclobenzaprine (FLEXERIL) 5 mg tablet Take 1 tablet (5 mg total) by mouth 3 (three) times a day as needed for muscle spasms for up to 30 doses. 30 tablet 0 Past Week at Unknown time ??? exemestane (AROMASIN) 25 mg tablet Take 25 mg by mouth daily. After a meal Unknown at Unknown time ??? fluticasone (FLONASE) 50 mcg/actuation nasal spray Administer 1 spray into each nostril 2 (two)times a day. (Patient not taking: Reported on 11/02/2017 ) 16 g 0 Unknown at Unknown time ??? gabapentin (NEURONTIN) 100 mg capsule Take 1 capsule (100 mg total) by mouth 3 (three) times a day. 90 capsule 0 Unknown at Unknown time ??? glimepiride (AMARYL) 2 mg tablet Take 1 tablet (2 mg total) by mouth daily before breakfast. 0 Unknown at Unknown time ??? HYDROcodone-acetaminophen (NORCO) 5-325 mg per tablet Take 1 tablet by mouth every 8 (eight) hours as needed for pain. 20 tablet 0 Unknown at Unknown time ??? lisinopril (PRINIVIL,ZESTRIL) 20 mg tablet take 1 Tablet (20MG) by oral route every day (Patient taking differently: Take 20 mg by mouth daily. ) 0 Unknown at Unknown time ??? oxybutynin (DITROPAN) 5 mg tablet take 1 tablet by oral route every day (Patient taking differently: Take 5 mg by mouth daily. ) 0 0 Unknown at Unknown time ??? polyethylene glycol (MIRALAX) 17 gram/dose powder Mix 1 scoop (17 g) in 8 oz of water and drinkdaily. (Patient taking differently: daily as needed. Mix 1 scoop (17 g) in 8 oz of water and drink daily. ) 527 g 0 Unknown at Unknown time ??? rivaroxaban (XARELTO) 10 mg tablet Take 20 mg by mouth daily. Unknown at Unknown time ??? rOPINIRole (REQUIP) 5 mg tablet take 1 tablet (5MG) by oral route every day at bedtime (Patienttaking differently: Take 5 mg by mouth nightly. ) 0 11/01/2017 at Unknown time ??? sitaGLIPtin-metformin (JANUMET) 50-1,000 mg per tablet Take 1 tablet by mouth daily. 11/01/2017 at Unknown time she family history includes Breast cancer in her sister; Diabetes in her mother; Heart attack in her brother; Heart disease in her mother; Heart failure in her mother; Other in her father, mother, and another family member; Prostate cancer in her father; Stent in her brother; Stroke in her mother. she reports that she has quit smoking. She has never used smokeless tobacco. She reports that she does not drink alcohol or use drugs. Patient lives with her daughter, currently on disability REVIEW OF SYSTEMS General ROS: Generalized fatigue, no fever chills Psychological ROS: negative for - anxiety, depression Ophthalmic ROS: negative for - blurry vision, loss of vision ENT ROS: negative for - sore throat, epistaxis, headaches, nasal congestion Allergy and Immunology ROS: negative for - hives, postnasal drip or seasonal allergies Hematological and Lymphatic ROS: negative for - bleeding problems, bruising Respiratory ROS: Shortness of breath with exertion Cardiovascular ROS: Shortness of breath, mild chest pressure; no dizziness or syncope Gastrointestinal ROS: negative for - abdominal pain, blood in stools, hematemesis, nausea/vomiting Endocrine ROS: Positive for heart flashes Genito-Urinary ROS: negative for - dysuria, hematuria Musculoskeletal ROS: Positive for back pain Neurological ROS: negative for - gait disturbance, weakness Dermatological ROS: negative for pruritus, rash LABS AND OTHER DIAGNOSTIC TESTS Recent Labs Lab Units 11/02/17 0814 11/02/17 0140 11/01/17 2236 TROPONIN I ng/mL <0.03 <0.03 <0.03 Lab Results Component Value Date WBC 17.1 (H) 11/01/2017 HGB 12.7 11/01/2017 HCT 40.6 11/01/2017 MCV 86.6 11/01/2017 Recent Labs Lab Units 11/02/17 0647 11/01/17 1911 CO2 mmol/L -- -- 24 CREATININE mg/dL -- -- 0.90 CALCIUM mg/dL -- -- 9.7 TOTAL PROTEIN g/dL -- -- 7.8 BILIRUBIN TOTAL mg/dL -- -- 0.50 ALK PHOS Units/L -- -- 81 ALT Units/L -- -- 25 AST Units/L -- -- 22 GLUCOSE mg/dL -- -- 429* POC GLUCOSE MONITOR mg/dL 229* < > -- < > = values in this interval not displayed. Lab Results Component Value Date WBC 17.1 (H) 11/01/2017 HGB 12.7 11/01/2017 HCT 40.6 11/01/2017 MCV 86.6 11/01/2017 Lab Results Component Value Date CHOL 178 11/02/2017 CHOL 174 11/24/2015 CHOL 162 10/22/2014 Lab Results Component Value Date HDL 51 11/02/2017 HDL 57 11/24/2015 HDL 63 10/22/2014 LDL Date Value Ref Range Status 11/24/2015 91 10 - 129 mg/dl Comment: Interpretive Data Optimal: < 100 mg/dL Near Optimal: 100 - 129 mg/dL Borderline High: 130 - 159 mg/dL High: 160 - 189 mg/dL Very high: > or = 190 mg/dL Literature Reference: See Cholesterol Current interpretive data was last revised on 2015. 10/22/2014 86 0 - 129 mg/dl Comment: Interpretive Data Optimal: < 100 mg/dL Near Optimal: 100 - 129 mg/dL Borderline High: 130 - 159 mg/dL High: > 160 mg/dL Literature Reference: See Cholesterol Current interpretive data was last revised on 06. ] Lab Results Component Value Date TRIG 86 11/02/2017 TRIG 130 11/24/2015 TRIG 67 10/22/2014 Results for orders placed or performed during the hospital encounter of 11/01/17 ECG 12 lead Result Value Ref Range Patient age 62 years Interpretation Text SINUS RHYTHM WITH SHORT VA INTERVALBORDERLINE ECGPREVIOUS TRACIN11/01/2017 19.42Compared to prior ECG Sinus tachycardia is no longer present. Ventricular Rate EKG/Min 73 /min P Wave Duration 103 ms QRS-Interval (MSEC) 80 ms VA-Interval (MSEC) 116 ms QT Interval 367 ms QTc 389 ms QTC Interval ms P Burr -6 deg QRS Burr 21 deg T Burr 36 deg Results for orders placed during the hospital encounter of 07/31/17 Transthoracic Echo Complete W Doppler/[place] [id number] Echocardiogram Report Patient Name: MOHSEN MARQUES : 1955 Study Date: 08/03/2017 1:46:17 PM Gender: F Tech: Location: [facility] Ref.Physician: Height(Cm): 155 BSA: 2.32 Weight(Kg): 125 Heart Rate: 87 BP: 103/64 Quality: Good Order Physician: Dr. Aceves Procedures: Echocardiographic Report: Transthoracic echocardiogram with complete 2D, M-Mode, and color Doppler examination. Indications: Chest Pain, Morbid Obesity, and Shortness of Breath. Measurements: 2D/M Mode Doppler Measurement Value Normal Range Measurement Value Normal Range EF Teich 2D 60.0 [ 55.0 - 70.0 ] percent ELVIA Vmax 2.16 [ 2.00 - 4.00 ] cm2 EF Mod 4C 74.6 [ 55.0 - 70.0 ] percent AV Mean PG 5 [ 2 - 4 ] mmHg LVIDd 2D 4.36 [ 3.90 - 5.30 ] cm AV Peak Singh 1.67 [ 1.00 - 1.70 ] m/s LVIDs 2D 2.98 [ 2.30 - 3.90 ] cm AV VTI 28.96 cm LVPWd 2D 0.91 [ 0.60 - 1.00 ] cm LVOT Diam 2.02 [ 1.70 - 2.10 ] cm IVSd 2D 1.00 [ 0.60 - 0.90 ] cm LVOT Peak Singh 1.12 [ 0.70 - 1.10 ] m/s LA Dimension MM 3.64 [ 2.70 - 3.80 ] cm LVOT VTI 21.98 [ 20.00 - 30.00 ] cm AoR Diam MM 2.53 [ 2.60 - 3.70 ] cm MV E Peak Singh 0.92 [ 0.60 - 1.30 ] m/s LA Volume Index 14.95 [ 16.00 - 28.00 ] cc/m2 MV A Peak Singh 0.62 [ 1.00 - 1.20 ] m/s ACS MM 1.94 cm MV Mean PG 1 [ <= 5 ] mmHg MV PHT 62 [ 20 - 100 ] msec MVA 2.90 MV Decel Time 228 [ 104 - 258 ] msec PV Peak Singh 1.09 [ 0.40 - 0.80 ] m/s TR Peak Singh 2.53 [ 1.00 - 2.80 ] m/s TR Peak PG 26 mmHg RVSP 40.62 [ 10.00 - 36.00 ] mmHg E' 0.08 E/E' 11.00 Findings: Atrial Septum: Normal atrial septum. Left Ventricle: Normal left ventricular systolic function with no focal wall motion abnormalities. Normal left ventricular wall thickness. Normal left ventricular diastolic function. Ejection fraction is visually estimated at 60 %. Left Atrium: The left atrium is normal in size. Right Ventricle: Normal right ventricular size. Normal right ventricular systolic function. Right Atrium: The right atrium is normal in size. Aortic Valve: Normal structure of the aortic valve. Mitral Valve: Mild mitral annular calcification. Pulmonic Valve: Normal structure of the pulmonic valve. Tricuspid Valve: Mild pulmonary hypertension based on right ventricular systolic pressure. Estimated peak RVSP is 40 mmHg. Mild tricuspid regurgitation. Pericardium: Normal pericardium with no significant pericardial effusion. Aorta: Normal aortic root. IVC: Normal size and normal respiratory collapse consistent with normal right atrial pressure (<5 mmHg). Pulmonary Artery: Normal pulmonary artery size. Conclusions: Normal left ventricular systolic function with no focal wall motion abnormalities. Normal left ventricular wall thickness. Normal left ventricular diastolic function. Ejection fraction is visually estimated at 60 %. Mild mitral annular calcification. Mild pulmonary hypertension based on right ventricular systolic pressure. Estimated peak RVSP is 40 mmHg. Mild tricuspid regurgitation. Electronically Signed By: Gómez Mchugh MD 2017-08-03 16:25:18 CDT CC: CC: PHYSICAL EXAM Vitals: BP 113/71 Pulse 83 Temp 36.8 ??C (98.2 ??F) (Oral) Resp 19 Ht 154.9 cm (5' 1 ) Wt 126.2 kg (278 lb 3.5 oz) SpO2 97% BMI 52.57 kg/m?? General appearance - morbidly obese, alert, no distress, oriented to time, place, person Mental status - affect appropriate to mood Eyes - extraocular eye movements intact, no pallor Ears - external ears appear normal, hearing grossly normal Nose - normal and patent, no discharge Mouth - mucous membranes moist, tongue normal Neck - supple, carotids upstroke normal bilaterally, no bruits, no JVD Chest - clear to auscultation Heart - normal rate, regular rhythm, normal S1, S2, systolic ejection murmur Abdomen - soft, nontender, nondistended, bowel sounds present Neurological - alert, oriented, normal speech, no gross motor deficits Musculoskeletal - no major deformity, no amputations Extremities - no pedal edema, no clubbing or cyanosis Skin - no rashes (on the exposed areas), no cyanosis ASSESSMENT 1. Uncontrolled type 2 diabetes mellitus with severe hyperglycemia 2. Shortness of breath, generalized fatigue 3. Other comorbidities include hypertension, type 2 diabetes mellitus, history of DVT, history of recurrent PE (on chronic anticoagulation with rivaroxaban), left CA breast status post left mastectomy, radiation treatment, morbid obesity, back pain. PLAN/RECOMMENDATIONS Patient is currently stable from cardiac standpoint. Her EKG does not show any acute ST T wave abnormalities, serial troponins are negative. CT scan of the chest was negative for PE. Recent echocardiogram from 08/03/2017 showed normal LV systolic and diastolic function. Patient had coronary angiogram done on 07/11/2013 which did not show any obstructive CAD. At this time, recommend continuation of outpatient medications including anticoagulation with rivaroxaban. Recommend endocrinology evaluation for patient's poorly-controlled diabetes mellitus. Management of patient's back pain as per primary team and pain specialist. Outpatient cardiology follow-up in 2-4 weeks or sooner if needed. Need for any further cardiac testing will determine patient on patient's clinical course as an outpatient. Thank you for the opportunity to participate in the cardiovascular care of your patient. Please do not hesitate to call with any questions. Jose Santos MD documented in this encounter Nursing Notes * Julissa Gaines RN - 11/06/2017 3:09 PM CDT Discharge orders received and reviewed with patient. * Prisca Barrett RN - 11/06/2017 3:07 PM CDT Patient wants to participate in the [facility] program for f/u phone text regarding home glucose testing. I will set that up. Prisca Barrett RN * Prisca Barrett RN - 11/06/2017 3:03 PM CDT Mohsen Marques [id number] Lucy Yu, DO Pre-Education Assessment Visit Type: Initial Introduction: ID verified, Alert/ oriented x 4, Patient present and able to participate Provider: Messaging Architect Treatment Prior To Admission: Oral medications Knowledge Base: Intermediate Hemaglobin A1c: Other (specify) (9.2 this admission) Home Testing: Weekly Adherence To: Diet, Oral medication regimen, Seldom misses Exercise Habits: Sedentary Hypoglycemia: Hardly ever Home Supplies: No assistance needed Diabetes Management Education Provided: Please see the Patient Education Activity Patient able to describe how she will add basal/bolus insulin to her daily regimen. Provided f/u phone numbers, DSME classes and dietitian visit info. Inpatient Recommendations RN to practice with patient: Injections RN to reinforce with patient: Consistent carb diet Discharge Recommendations Glucometer: (patient states she has a meter and test strips are covered by her insurance; she will need a new script though at [facility] for additional test strips) Lancets: (I provided 100 lancets) Blood Glucose Testing Regimen: 4 times per day Patient prefers insulin by pen. Prisca Barrett RN, Front Office Assistant 11/06/2017 3:04 PM * Alex Sewell RN - 11/05/2017 5:56 PM CDT While beginning to check patient's blood glucose had other patient with bleeding IV, had to leave to check on patient prior to checking blood glucose. Approximately 10 minute delay before returning to room. On return patient appeared frustrated, stated just take my tray away I don't want it . Patient allowed me to check blood glucose and give medication, blood sugar 165. Asked if patient was nauseated or didn't like food or if there was anything I could help with. Patient denied nausea or offer for help. Will continue to monitor. * Alex Sewell RN - 11/04/2017 5:52 PM CDT Patient had blood sugar of 126 at lunch and was given 30 units lispro per order. Patient has low blood glucose 69 at 1445, patient was given two juices and re- checked at 1500 and blood glucose came up to 102. Patient reports generalized unwell feeling. Patient was then given turkey sandwich, grahamcrackers with peanut butter. Dr. Morin aware and insulins adjusted. * Alex Sewell RN - 11/03/2017 6:[address] Morin aware of blood glucose 417, orders entered in Epic. Will continue to monitor. * Alex Sewell RN - 11/03/2017 2:28 PM CDT Patient also developed throat tightness after Trazodone and TICKER WIRER called. Dr. Hensley aware and was at bedside. IV Benadryl, IV solumedrol and IV Pepcid given. Patient reports much improvement. Will continue to monitor. * Alex Sewell RN - 11/03/2017 1:[address] Hensley aware of patient's reaction to Trazodone. Patient reports shakiness, restless legs, panting . Trazodone discontinued and listed as allergy. Will continue to monitor for any itching, rash, hives. documented in this encounter ED Notes * Enmanuel Dubon MD - 11/01/2017 8:59 PM CDT HPI Chief Complaint Patient presents with ??? Hyperglycemia ??? Weakness - Generalized ??? Shortness of Breath HPI 2058: Mohsen Marques is a 62 y/o female with a h/o diabetes, HTN, DVT and PE (on Xarelto) presenting to the ED c/o dyspnea that began yesterday afternoon. Exacerbating factors include exertion. No specific alleviating factors. Pt states her SOB was more severe when she had PE than it is currently.She also notes generalized weakness, malaise, and chest pain. She also notes elevated blood sugar since yesterday and states it was 430 this afternoon. Pt was seen in the ED 10/25/2017 with complaints of chronic low back pain and left sided sciatica andwas admitted for pain control. She was discharged yesterday and was then seen by Dr. Moyer, pain management, and received LESI. Pt states her current symptoms began after returning home. Patient History Patient Active Problem List Diagnosis Date Noted ??? Dysuria 10/26/2017 ??? Acute left-sided low back pain with left-sided sciatica 10/23/2017 ??? Type 2 diabetes mellitus with neurologic complication, without long-term current use of insulin([facility]/HCC) 10/23/2017 ??? Essential hypertension 10/23/2017 ??? Long-term current use of opiate analgesic 10/23/2017 ??? Lumbosacral spondylosis without myelopathy 10/23/2017 ??? Radiculopathy, lumbosacral region 10/23/2017 ??? Spinal stenosis of lumbar region without neurogenic claudication 10/23/2017 ??? 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 ??? Type 2 diabetes mellitus with hyperglycemia, without long-term current use of insulin ([facility]/HCC) ??? Constipation ??? Cancer of overlapping sites of left [...] Constitutional: Negative for chills, fatigue and fever. + Malaise HENT: Negative for congestion, ear pain, rhinorrhea, sneezing and sore throat. Respiratory: Positive for shortness of breath. Negative for cough and wheezing. Cardiovascular: Positive for chest pain. Negative for palpitations. Gastrointestinal: Negative for abdominal pain, constipation, diarrhea, nausea and vomiting. Genitourinary: Negative for dysuria and frequency. Musculoskeletal: Negative for arthralgias, back pain, myalgias and neck pain. Skin: Negative for color change, pallor, rash and wound. Neurological: Positive for weakness (generalized). Negative for dizziness, syncope, light-headedness and headaches. All other systems reviewed and are negative. Physical Exam ED Triage Vitals [11/01/17 1752] Temp Pulse Resp BP SpO2 36.5 ??C (97.7 ??F) 97 18 145/81 98 % Temp src Heart Rate Source Patient Position BP Location FiO2 (%) Oral -- -- -- -- Physical Exam Constitutional: She is oriented to person, place, and time. She appears well- developed. No distress. + Morbidly obese HENT: Head: Normocephalic and atraumatic. Mouth/Throat: Oropharynx is clear and moist. Eyes: Conjunctivae and EOM are normal. Neck: Normal range of motion. Neck supple. Cardiovascular: Normal rate, regular rhythm, normal heart sounds and intact distal pulses. Exam reveals no gallop and no friction rub. No murmur heard. Pulmonary/Chest: Effort normal and breath sounds normal. No respiratory distress. She has no wheezes. She has no rales. Abdominal: Soft. There is no tenderness. Musculoskeletal: Normal range of motion. She exhibits no edema, tenderness or deformity. Neurological: She is alert and oriented to person, place, and time. Skin: Skin is warm and dry. Capillary refill takes less than 2 seconds. No rash noted. No erythema.No pallor. Psychiatric: She has a normal mood and affect. Her behavior is normal. Nursing note and vitals reviewed. MDM MDM Labs Reviewed URINALYSIS AND REFLEX TO MICROSCOPIC AND CULTURE - Abnormal Result Value Color, ur Straw Clarity, ur Clear Specific gravity, ur 1.026 (*) pH, urine 6.0 Protein, ur ql Negative [...] uric acid stone formation. Source: [facility] [employer].Last revised 05-04-2017 CBC WITH AUTO DIFFERENTIAL - Abnormal WBC 17.1 (*) RBC 4.69 Hgb 12.7 Hct 40.6 MCV 86.6 MCH 27.1 MCHC 31.3 (*) RDW CV 14.9 RDW SD 47.1 Plt 347 MPV 10.4 NRBC Abs 0.00 Narrative: COMPREHENSIVE METABOLIC PANEL - Abnormal Sodium 134 (*) Potassium, pl 5.0 Chloride 103 CO2 24 Anion Gap 12 BUN 25 (*) Creatinine 0.90 Glucose 429 (*) Calcium 9.7 Bilirubin, total 0.50 Protein, pl 7.8 Albumin 3.4 Alk phos 81 ALT 25 AST 22 Narrative: DIFFERENTIAL AUTO - Abnormal Neutrophil absolute 14.2 (*) Immature granulocyte absolute 0.1 Lymphocytes absolute 1.6 Monocyte absolute 1.2 (*) Eosinophils absolute 0.0 Basophils, abs 0.0 Neutrophils 82.8 Immature granulocytes 0.8 Lymphocytes 9.5 Monocytes 6.7 Eosinophils 0.0 Basophils 0.2 Narrative: POCT GLUCOSE DEVICE - Abnormal Glucose, POC, bld 439 (*) Narrative: POCT GLUCOSE DEVICE - Abnormal Glucose, POC, bld 402 (*) Narrative: POCT GLUCOSE DEVICE - Abnormal Glucose, POC, bld 344 (*) Narrative: POCT GLUCOSE DEVICE - Abnormal Glucose, POC, bld 291 (*) Narrative: B-TYPE NATRIURETIC PEPTIDE B-Type Natriuretic Peptide (BNP) 34 Narrative: TROPONIN I Troponin I 0.05 Narrative: URINALYSIS, MICROSCOPIC ONLY WBC, ur 0-5 RBC, ur 0-5 Narrative: EGFR GFR 69 Narrative: TROPONIN I Troponin I <0.03 Narrative: POCT GLUCOSE DEVICE XR Chest 1 Vw Portable Final Result No acute cardiopulmonary process. Electronically signed by: Sara Burk M.D. CT Chest PE W Contrast (Results Pending) BP 123/69 Pulse 96 Temp 36.5 ??C (97.7 ??F) (Oral) Resp 16 Ht 154.9 cm (5' 1 ) Wt 124.7 kg (275 lb) SpO2 97% BMI 51.96 kg/m?? Procedures ED Course as of Nov 03 127 Time: 07/12 0113 Comment: Chest CT showed no acute changes. By: Molly Hammonds Time: 11/02 124 Value: BP: 145/81 Comment: Pre-hypertension/Hypertension: The patient has been informed that they may have pre-hypertension or Hypertension based on a blood pressure reading in the Emergency Department. I recommend that the patient call the primary care provider listed on their discharge instructions or a physicianof their choice this week to arrange follow up for further evaluation of possible pre- hypertension or Hypertension. By: Molly Hammonds Time: 11/02 125 Comment: Spoke with Dr. Yu, [facility] hospitalist, who accepts the pt. By: Molly Hammonds COPD exacerbation (CMS/HCC) Chest pain, unspecified type Chronic midline low back pain without sciatica 1:18 AM: This note is prepared by Molly Hammonds, acting as a scribe for Enmanuel Dubon MD. I electronically signed this note at 1:18 AM on 11/02/2017. I, Enmanuel Dubon MD have personally performed the services described in the documentation, as recorded by the scribe in my presence. Enmanuel Dubon MD 11/02/17 0128 * Farzaneh Birmingham, NURIS - 11/01/2017 6:36 PM CDT Pt presents to ED with complaints of high blood sugars, chest pain, and shortness of breath. Pt reports she was discharged from the hospital one day ago, after receiving a steroid shot in her back. Pt reports since then, she has high blood sugar readings. Pt also reports chest pain and states, It feels like my heart is beating really fast. Heart Rate within normal limits. Pt also reports feelings of shortness of breath. Oxygen saturation is within normal limits. Pt also reports back pain. Pt also reports N/V. Pt ambulatory to restroom at this time to provide urine specimen. Will continue tomonitor. * Dileep Pulliam RN - 11/01/2017 5:51 PM CDT Pt BS 480 Pt was told to return to ED if BS went over 400. Pt was discharged 1 day ago documented in this encounter Miscellaneous Notes * Plan of Care - Julissa Gaines RN - 11/06/2017 1:32 PM CDT Goals: Clinical Goals for the Shift: Go home today. Summary: * Plan of Care - Ruth Poole RN - 11/06/2017 1:28 AM CDT Goals: Clinical Goals for the Shift: pain management Summary: * Plan of Care - Alex Sewell RN - 11/05/2017 4:15 PM CDT Health Behavior: ??? Understanding of discharge needs will improve Progressing Physical Regulation: ??? Complications related to the disease process, condition or treatment will be avoided or minimized Progressing ??? Diagnostic test results will improve Progressing Goals: Clinical Goals for the Shift: watch blood sugar trends Summary: Patient anxious to return home. No IV access, aware and okay with. Blood glucose improving. No other complaints. Will continue to monitor. * Plan of Care - Sara Gipson RN - 11/05/2017 3:30 AM CDT Goals: Clinical Goals for the Shift: monitor blood sugar Summary: Patient is resting in bed and is stable. Her blood sugar has remained a little elevated and was 301at 0200 am, Received 8 units of SSI. Patient has no other complaints. Will continue to monitor. * Plan of Care - Alex Sewell RN - 11/04/2017 5:25 PM CDT Health Behavior: ??? Understanding of discharge needs will improve Progressing Physical Regulation: ??? Complications related to the disease process, condition or treatment will be avoided or minimized Progressing ??? Diagnostic test results will improve Progressing Goals: Clinical Goals for the Shift: monitor blood glucose Summary: Patient blood glucose 69 brought up to 102 within [address] Morin aware. Will continue to monitor. * Plan of Care - Sara Gipson RN - 11/04/2017 3:15 AM CDT Goals: Clinical Goals for the Shift: stable blood sugar Summary: Patient is resting in bed and is stable. Her blood sugar was elevated yesterday evening in the 450's. Gave the scheduled lantus and SSI insulin. Then per MD orders, gave an additional 20 units of NPH. We are checking blood sugar every two hours and blood sugar is trending down. Most recent 350's. Will continue to monitor. * Plan of Care - Alex Sewell RN - 11/03/2017 4:28 PM CDT Health Behavior: ??? Understanding of discharge needs will improve Progressing Physical Regulation: ??? Complications related to the disease process, condition or treatment will be avoided or minimized Progressing ??? Diagnostic test results will improve Progressing Goals: Clinical Goals for the Shift: lower blood glucose Summary: Patient had reaction to Trazodone, pt reported shakiness, restlessness, throat tightness. Pt given IV benadryl, IV solumedrol, IV Pepcid. Dr. Hensley aware. Patient's blood sugar improved. Willcontinue to monitor. * Plan of Care - Domitila Ceron OT - 11/03/2017 1:08 PM CDT Occupational Therapy OT eval and treat order received. Pt stating she is indep in all adl's/functional mobility and doesnot need skilled OT in the acute care setting. Pt informed she can let RN know if she would like skilled OT reconsulted at any point during her hospital stay. Please discontine OT orders at this time. Thank you for this referral. Domitila Arnold??tanner Ceron OTR/Aisha 11/03/17 1:06 PM * Plan of Care - Sara Gipson RN - 11/03/2017 4:22 AM CDT Goals: Clinical Goals for the Shift: lower blood sugar Summary: Patient is resting in bed and blood sugar continues to trend down. Initially was 476 yesterday evening, received 10 units nighty SSI with additional 10 units approved by TYPEWRITER REPAIRER. Blood sugar was 390 at 0200 and received another 20 units SSI. Messaging Architect was notified and aware of elevated blood sugars. Will continue to monitor. * Plan of Care - Jo Swanson RN - 11/02/2017 3:42 PM CDT Summary: Sugar levels all over today. Spoke with diabetes nurse. Will continue to monitor vitals, telemetry, and comfort. * Plan of Care - Jo Swanson RN - 11/02/2017 8:59 AM CDT Goals: monitor vitals, telemetry, comfort, and blood sugar levels. * Plan of Care - Priscilla Dave RN - 11/02/2017 5:43 AM CDT Summary: Pt admitted for high blood sugar, SOB, and chest palpitations. Pt on RA and awaiting CPAP machine. Pt denies SOB and chest pains at time. Blood sugars trending down. Dr Yu wants pt NPO for now until day doctor addresses if want cardiology consult or not. Pt resting in bed. Will continue to monitor. * ED Re-evaluation Note - Yeni Crespo NP - 11/01/2017 5:53 PM CDT Pt was just recently discharged yesterday from here where she was admitted for pain management for lumbar spine. Pt received steroid injections. Pt states her blood sugar has been running high at home. Pt states feeling weak and nauseas. Pt states she feels like her heart is racing. Denies chest pain. States really SOB especially when laying down. Last blood sugar was 480 2 hours ago. Pt states polydipsia and polyuria. Yeni Crespo NP 11/01/17 4677 documented in this encounter Plan of Treatment Not on file documented as of this encounter Procedures Procedure Name Priority Date/Time Associated Diagnosis Comments POCT GLUCOSE DEVICE Routine 11/06/2017 1 2:22 PM CDT POCT GLUCOSE DEVICE Routine 11/06/2017 9 :37 AM CDT POCT GLUCOSE DEVICE Routine 11/06/2017 6 :25 AM CDT EGFR Routine 11/06/2017 5:05 AM CDT CBC WITHOUT DIFFERENTIAL Routine 11/06/2017 5:05 AM CDT BASIC METABOLIC PANEL Routine 11/06/2017 5:05 AM CDT POCT GLUCOSE DEVICE Routine 11/06/2017 2 :19 AM CDT POCT GLUCOSE DEVICE Routine 11/05/2017 9 :03 PM CDT POCT GLUCOSE DEVICE Routine 11/05/2017 5 :34 PM CDT POCT GLUCOSE DEVICE Routine 11/05/2017 3 :42 PM CDT POCT GLUCOSE DEVICE Routine 11/05/2017 1 2:24 PM CDT POCT GLUCOSE DEVICE Routine 11/05/2017 9 :29 AM CDT POCT GLUCOSE DEVICE Routine 11/05/2017 6 :32 AM CDT EGFR Routine 11/05/2017 4:27 AM CDT CBC WITHOUT DIFFERENTIAL Routine 11/05/2017 4:27 AM CDT BASIC METABOLIC PANEL Routine 11/05/2017 4:27 AM CDT POCT GLUCOSE DEVICE Routine 11/05/2017 2 :07 AM CDT POCT GLUCOSE DEVICE Routine 11/05/2017 1 2:07 AM CDT POCT GLUCOSE DEVICE Routine 11/04/2017 8 :21 PM CDT POCT GLUCOSE DEVICE Routine 11/04/2017 6 :27 PM CDT POCT GLUCOSE DEVICE Routine 11/04/2017 4 :58 PM CDT POCT GLUCOSE DEVICE Routine 11/04/2017 3 :00 PM CDT POCT GLUCOSE DEVICE Routine 11/04/2017 2 :39 PM CDT POCT GLUCOSE DEVICE Routine 11/04/2017 1 2:18 PM CDT POCT GLUCOSE DEVICE Routine 11/04/2017 1 0:58 AM CDT POCT GLUCOSE DEVICE Routine 11/04/2017 8 :36 AM CDT POCT GLUCOSE DEVICE Routine 11/04/2017 6 :32 AM CDT CBC WITHOUT DIFFERENTIAL Routine 11/04/2017 4:28 AM CDT POCT GLUCOSE DEVICE Routine 11/04/2017 4 :09 AM CDT POCT GLUCOSE DEVICE Routine 11/04/2017 1 :29 AM CDT POCT GLUCOSE DEVICE Routine 11/03/2017 1 1:36 PM CDT POCT GLUCOSE DEVICE Routine 11/03/2017 8 :57 PM CDT POCT GLUCOSE DEVICE Routine 11/03/2017 7 :56 PM CDT POCT GLUCOSE DEVICE Routine 11/03/2017 5 :01 PM CDT POCT GLUCOSE DEVICE Routine 11/03/2017 1 :39 PM CDT POCT GLUCOSE DEVICE Routine 11/03/2017 1 2:09 PM CDT POCT GLUCOSE DEVICE Routine 11/03/2017 8 :14 AM CDT POCT GLUCOSE DEVICE Routine 11/03/2017 6 :08 AM CDT CBC WITHOUT DIFFERENTIAL Routine 11/03/2017 4:52 AM CDT POCT GLUCOSE DEVICE Routine 11/03/2017 3 :32 AM CDT POCT GLUCOSE DEVICE Routine 11/03/2017 2 :03 AM CDT TROPONIN I Timed 11/02/2017 9:50 PM CDT POCT GLUCOSE DEVICE Routine 11/02/2017 9 :07 PM CDT POCT GLUCOSE DEVICE Routine 11/02/2017 8 :03 PM CDT POCT GLUCOSE DEVICE Routine 11/02/2017 6 :40 PM CDT POCT GLUCOSE DEVICE Routine 11/02/2017 4 :35 PM CDT EGFR STAT 11/02/2017 11:48 AM CDT TROPONIN I Timed 11/02/2017 11:48 AM CDT APTT STAT 11/02/2017 11:48 AM CDT PROTIME-INR STAT 11/02/2017 11:48 AM CDT CBC WITHOUT DIFFERENTIAL STAT 11/02/2017 11:48 AM CDT CREATININE STAT 11/02/2017 11:48 AM CDT POCT GLUCOSE DEVICE Routine 11/02/2017 1 0:59 AM CDT ECG 12-LEAD STAT 11/02/2017 8:56 AM CDT TROPONIN I Timed 11/02/2017 8:14 AM CDT LIPID PANEL Routine 11/02/2017 8:14 AM CDT POCT GLUCOSE DEVICE Routine 11/02/2017 6 :47 AM CDT POCT GLUCOSE DEVICE Routine 11/02/2017 4 :56 AM CDT POCT GLUCOSE DEVICE Routine 11/02/2017 3 :49 AM CDT TROPONIN I STAT 11/02/2017 1:40 AM CDT POCT GLUCOSE DEVICE Routine 11/02/2017 1 2:[address] CHEST PE W CONTRAST ED 8 11:11 PM CDT TROPONIN I STAT 11/01/2017 10:36 PM CDT POCT GLUCOSE DEVICE Routine 11/01/2017 9 :58 PM CDT XR CHEST 1 VIEW ED 11/01/2017 8:00 PM CDT ECG 12-LEAD STAT 11/01/2017 7:42 PM CDT POCT GLUCOSE DEVICE Routine 11/01/2017 7:37 PM CDT EGFR STAT 11/01/2017 7:11 PM CDT DIFFERENTIAL AUTO STAT 11/01/2017 7:1 1 PM CDT CBC WITH AUTO DIFFERENTIAL STAT 11/01/2017 7:11 PM CDT TROPONIN I STAT 11/01/2017 7:11 PM CDT B-TYPE NATRIURETIC PEPTIDE STAT 11/01/2017 7:11 PM CDT COMPREHENSIVE METABOLIC PANEL STAT 11/01/2017 7:11 PM CDT ECG 12-LEAD STAT 11/01/2017 6:31 PM CDT URINALYSIS AND REFLEX TO MICROSCOPIC AND CULTURE STAT 11/01/2017 6:30 PM CDT URINALYSIS, MICROSCOPIC ONLY STAT 11/01/2017 6:30 PM CDT POCT GLUCOSE DEVICE Routine 11/01/2017 5 :59 PM CDT documented in this encounter Results * POCT glucose (11/06/2017 12:22 PM CDT) Glucose, POC 119 70 - 199 mg/dL CERNER Blood specimen (specimen) 11/06/2017 12:22 PM CDT 11/06/2017 12:22 PM CDT Narrative MARY JANE CH - 11/06/2017 12:23 PM CDT Zhen Carter MD LAB POCT ORDERABLES - DEVICE Final Result Performing Organization Address [facility] [[email or web address]] Co de Phone Number MARY JANE ARNOLD [id number] [facility] [place] [address] * POCT glucose (11/06/2017 9:37 AM CDT) Glucose, POC 190 70 - 199 mg/dL CERNER Blood specimen (specimen) 11/06/2017 9:37 AM CDT 11/06/2017 9:37 AM CDT Johnathan HINTON - 11/06/2017 9:40 AM CDT Zhen Carter MD LAB POCT ORDERABLES - DEVICE Final Result Performing Organization Address City/[facility]/ZIP Co de Phone Number MARY JANE CATALINA [phone] [facility] [employer] [address] * POCT glucose (11/06/2017 6:25 AM CDT) Glucose, POC 161 70 - 199 mg/dL CERNER CH Blood specimen (specimen) 11/06/2017 6:25 AM CDT 11/06/2017 6:25 AM CDT Narrative BCNER - 11/06/2017 6:50 AM CDT Zhen Carter MD LAB POCT ORDERABLES - DEVICE Final Result Performing Organization Address [facility] de Phone Number [facility] [address] [address] Department [place] [address] * eGFR (11/06/2017 5:05 AM CDT) [facility] eGFR 98 mL/min/1.7 3 m2 [facility] Comment: Interpretive Data Reference Interval Normal ?>/= 90 mL/min/1.73m2 Mildly decreased* ? 60 - 89 mL/min/1.73m2 Mildly to moderately decreased ?45 - 59 mL/min/1.73m2 Moderately to severely decreased ??30 - 44 mL/min/1.73m2 Severely decreased ?15 - 29 mL/min/1.73m2 Kidney Failure ?< 15 ??mL/min/1.73m2 *Relative to young adult level If -Barbadian multiply value by 1.16. Estimated glomerular filtration [...] was last reviewed 2015. Blood specimen (specimen) 11/06/2017 5:05 AM CDT 11/06/2017 5:29 AM CDT Narrative MARY JANE - 11/06/2017 5:46 AM CDT Tessie Morin MD LAB BLOOD ORDERABLE S Final Result Performing Organization Address [facility] [[email or web address]] Co de Phone Number MARY JANE ARNOLD [address] Department [place] [address] * (ABNORMAL) Basic metabolic panel (11/06/2017 5:05 AM CDT) Sodium 135 135 - 145 mmol/L [facility] Potassium, pl 4.1 3.5 - 5.1 mmol/L [facility] Chloride 107 100 - 114 mmol/L [facility] CO2 21(L) 22 - 32 mmol/L [facility] Anion gap 11 8 - 16 mmol/L [facility] BUN 18 8 - 24 mg/dL [facility] Creatinine 0.61 0.60 - 1.30 mg/dL [facility] Glucose 173 70 - 199 mg/dL [facility] Comment: Interpretive Data Fasting glucose >/= [...] interpretive data was last revised 2017. Calcium 9.0 8.4 - 10.5 mg/dL [facility] Blood specimen (specimen) 11/06/2017 5:05 AM CDT 11/06/2017 5:29 AM CDT Narrative [facility] - 11/06/2017 5:46 AM CDT us Tessie Morin MD LAB BLOOD ORDERABLE S Final Result MARY JANE ARNOLD [address] [address] Department [place] [address] * (ABNORMAL) CBC without differential (11/06/2017 5:05 AM CDT) WBC 18.5(H) 3.8 - 9.9 K/cumm [facility] Hgb 11.6(L) 11.9 - 15.5 g/dL [facility] Hct 36.3 35.6 - 45.5 % [facility] Plt 288 150 - 400 K/cumm [facility] MPV 10.4 9.1 - 12.3 fL [facility] RBC 4.21 3.90 - 5.20 M/cumm [facility] MCV 86.2 81.3 - 96.4 fL [facility] MCH 27.6 27.1 - 33.3 pg [facility] MCHC 32.0(L) 32.3 - 35.7 g/dL [facility] RDW CV 15.3(H) 11.1 - 14.9 % [facility] CH RDW SD 47.8 35.7 - 48.1 fL [facility] NRBC abs 0.00 0.00 - 0.01 K/cumm [facility] Blood specimen (specimen) 11/06/2017 5:05 AM CDT 11/06/2017 5:31 AM CDT Narrative [facility] - 11/06/2017 5:36 AM CDT Jose Santos MD LAB BLOOD ORDERABLES Final Resul t Performing Organization Address [facility] de Phone Number MARY JANE ARNOLD [address] [employer] [place] [address] * (ABNORMAL) POCT glucose (11/06/2017 2:19 AM CDT) [facility] Glucose, POC 222(H) 70 - 199 mg/dL [facility] Blood specimen (specimen) 11/06/2017 2:19 AM CDT 11/06/2017 2:19 AM CDT Narrative MARY JANE - 11/06/2017 2:24 AM CDT Zhen Carter MD LAB POCT ORDERABLES - DEVICE Final Result Performing Organization Address [facility] [[email or web address]] Co de Phone Number [facility] [address] Department of [employer] [place], [place] [id number] * (ABNORMAL) POCT glucose (11/05/2017 9:03 PM CDT) Glucose, POC 292(H) 70 - 199 mg/dL [facility] Blood specimen (specimen) 11/05/2017 9:03 PM CDT 11/05/2017 9:03 PM CDT Narrative [facility] - 11/05/2017 9:23 PM CDT Zhen Carter MD LAB POCT ORDERABLES - DEVICE Final Result Performing Organization Address [facility] [[email or web address]] Co de Phone Number MARY JANE ARNOLD [address] [address] [facility] [employer] [place], [place] [id number] * POCT glucose (11/05/2017 5:34 PM CDT) Glucose, POC 165 70 - 199 mg/dL [facility] Blood specimen (specimen) 11/05/2017 5:34 PM CDT 11/05/2017 5:34 PM CDT Narrative [facility] - 11/05/2017 5:34 PM CDT Zhen Carter MD LAB POCT ORDERABLES - DEVICE Final Result Performing Organization Address [facility] de Phone Number MARY JANE ARNOLD [address] [address] [facility] [employer] [place] [address] * POCT glucose (11/05/2017 3:42 PM CDT) Glucose, POC 90 70 - 199 mg/dL [facility] Blood specimen (specimen) 11/05/2017 3:42 PM CDT 11/05/2017 3:42 PM CDT Narrative [facility] - 11/05/2017 3:43 PM CDT Zhen Carter MD LAB POCT ORDERABLES - DEVICE Final Result Performing Organization Address City/[facility] [[email or web address]] Co de Phone Number MARY JANE ARNOLD [address] [facility] [employer] [place], [place] [id number] * POCT glucose (11/05/2017 12:24 PM CDT) Glucose, POC 195 70 - 199 mg/dL [facility] Blood specimen (specimen) 11/05/2017 12:24 PM CDT 11/05/2017 12:24 PM CDT Narrative [facility] - 11/05/2017 12:25 PM CDT Zhen Carter MD LAB POCT ORDERABLES - DEVICE Final Result Performing Organization Address [facility] [[email or web address]] Co de Phone Number MARY JANE ARNOLD [address] [facility] [employer] [place], [place] [id number] * (ABNORMAL) POCT glucose (11/05/2017 9:29 AM CDT) Glucose, POC 247(H) 70 - 199 mg/dL [facility] Blood specimen (specimen) 11/05/2017 9:29 AM CDT 11/05/2017 9:29 AM CDT Narrative [facility] - 11/05/2017 11:02 AM CDT Zhen Carter MD LAB POCT ORDERABLES - DEVICE Final Result Performing Organization Address [facility] [[email or web address]] Co de Phone Number MARY JANE ARNOLD [address] [address] [facility] [employer] [place] [address] * POCT glucose (11/05/2017 6:32 AM CDT) Glucose, POC 182 70 - 199 mg/dL [facility] Blood specimen (specimen) 11/05/2017 6:32 AM CDT 11/05/2017 6:32 AM CDT Narrative [facility] - 11/05/2017 11:03 AM CDT Zhen Carter MD LAB POCT ORDERABLES - DEVICE Final Result Performing Organization Address City/[facility]/ZIP Co de Phone Number BCPUJA ARNOLD [address] [address] [facility] [employer] [place], [place] [phone] * eGFR (11/05/2017 4:27 AM CDT) eGFR 82 mL/min/1.7 3 m2 MARY JANE ARNOLD Comment: Interpretive Data Reference Interval Normal ?>/= 90 mL/min/1.73m2 Mildly decreased* ? 60 - 89 mL/min/1.73m2 Mildly to moderately decreased ?45 - 59 mL/min/1.73m2 Moderately to severely decreased ??30 - 44 mL/min/1.73m2 Severely decreased ?15 - 29 mL/min/1.73m2 Kidney Failure ?< 15 ??mL/min/1.73m2 *Relative to young adult level If -Barbadian multiply value by 1.16. Estimated glomerular filtration [...] was last reviewed 2015. Blood specimen (specimen) 11/05/2017 4:27 AM CDT 11/05/2017 5:39 AM CDT Narrative MARY JANE ARNOLD - 11/05/2017 6:03 AM CDT us Tessie Morin MD LAB BLOOD ORDERABLE S Final Result MARY JANE ARNOLD [address] Department [place] [address] * (ABNORMAL) Basic metabolic panel (11/05/2017 4:27 AM CDT) Pathologist [facility] Sodium 134(L) 135 - 145 mmol/L MARY JANE ARNOLD Potassium, pl 4.0 3.5 - 5.1 mmol/L [facility] Chloride 106 100 - 114 mmol/L [facility] CO2 24 22 - 32 mmol/L [facility] Anion gap 8 8 - 16 mmol/L [facility] BUN 25(H) 8 - 24 mg/dL [facility] Creatinine 0.78 0.60 - 1.30 mg/dL [facility] Glucose 245(H) 70 - 199 mg/dL [facility] Comment: Interpretive [...] interpretive data was last revised 2017. Calcium 9.2 8.4 - 10.5 mg/dL [facility] Blood specimen (specimen) 11/05/2017 4:27 AM CDT 11/05/2017 5:39 AM CDT Narrative [facility] - 11/05/2017 6:03 AM CDT us Tessie Morin MD LAB BLOOD ORDERABLE S Final Result [facility] [address] [address] Department [place] [address] * (ABNORMAL) CBC without differential (11/05/2017 4:27 AM CDT) WBC 16.2(H) 3.8 - 9.9 K/cumm [facility] Hgb 11.6(L) 11.9 - 15.5 g/dL [facility] Hct 37.2 35.6 - 45.5 % [facility] Plt 287 150 - 400 K/cumm [facility] MPV 10.8 9.1 - 12.3 fL [facility] RBC 4.24 3.90 - 5.20 M/cumm [facility] MCV 87.7 81.3 - 96.4 fL [facility] MCH 27.4 27.1 - 33.3 pg [facility] MCHC 31.2(L) 32.3 - 35.7 g/dL [facility] RDW CV 15.1(H) 11.1 - 14.9 % [facility] RDW SD 48.7(H) 35.7 - 48.1 fL [facility] NRBC abs 0.00 0.00 - 0.01 K/cumm [facility] Blood specimen (specimen) 11/05/2017 4:27 AM CDT 11/05/2017 5:39 AM CDT Narrative [facility] - 11/05/2017 5:42 AM CDT Jose Santos MD LAB BLOOD ORDERABLES Final Resul t Performing Organization Address [facility] de Phone Number [facility] [address] [address] [facility] [employer] [place], [place] [phone] * (ABNORMAL) POCT glucose (11/05/2017 2:07 AM CDT) Glucose, POC 303(H) 70 - 199 mg/dL [facility] Blood specimen (specimen) 11/05/2017 2:07 AM CDT 11/05/2017 2:07 AM CDT [facility] - 11/05/2017 2:09 AM CDT Zhen Carter MD LAB POCT ORDERABLES - DEVICE Final Result Performing Organization Address [facility] de Phone Number [facility] [address] [address] [facility] [employer] [place] [address] * (ABNORMAL) POCT glucose (11/05/2017 12:07 AM CDT) Glucose, POC 348(H) 70 - 199 mg/dL [facility] Blood specimen (specimen) 11/05/2017 12:07 AM CDT 11/05/2017 12:07 AM CDT Narrative [facility] - 11/05/2017 12:16 AM CDT Zhen Carter MD LAB POCT ORDERABLES - DEVICE Final Result Performing Organization Address [facility] [[email or web address]] Co de Phone Number MARY JANE ARNOLD [address] [address] [facility] [employer] [place] [address] * (ABNORMAL) POCT glucose (11/04/2017 8:21 PM CDT) Glucose, POC 278(H) 70 - 199 mg/dL [facility] Blood specimen (specimen) 11/04/2017 8:21 PM CDT 11/04/2017 8:21 PM CDT Narrative [facility] - 11/04/2017 8:22 PM CDT Zhen Carter MD LAB POCT ORDERABLES - DEVICE Final Result Performing Organization Address [facility] de Phone Number MARY JANE ARNOLD [address] [place] [address] * (ABNORMAL) POCT glucose (11/04/2017 6:27 PM CDT) Glucose, POC 326(H) 70 - 199 mg/dL [facility] Blood specimen (specimen) 11/04/2017 6:27 PM CDT 11/04/2017 6:27 PM CDT Narrative [facility] - 11/04/2017 6:28 PM CDT Zhen Carter MD LAB POCT ORDERABLES - DEVICE Final Result Performing Organization Address [facility] de Phone Number MARY JANE ARNOLD [address] [place] [address] * (ABNORMAL) POCT glucose (11/04/2017 4:58 PM CDT) Glucose, POC 268(H) 70 - 199 mg/dL [facility] Blood specimen (specimen) 11/04/2017 4:58 PM CDT 11/04/2017 4:58 PM CDT Narrative [facility] - 11/04/2017 4:59 PM CDT Zhen Carter MD LAB POCT ORDERABLES - DEVICE Final Result Performing Organization Address [facility] [[email or web address]] Co de Phone Number MARY JANE ARNOLD [address] [address] [facility] [employer] [place] [address] * POCT glucose (11/04/2017 3:00 PM CDT) Glucose, POC 102 70 - 199 mg/dL [facility] Blood specimen (specimen) 11/04/2017 3:00 PM CDT 11/04/2017 3:00 PM CDT Narrative [facility] - 11/04/2017 3:02 PM CDT Zhen Carter MD LAB POCT ORDERABLES - DEVICE Final Result Performing Organization Address [facility] de Phone Number MARY JANE ARNOLD [address] Department [employer] [place] [address] * (ABNORMAL) POCT glucose (11/04/2017 2:39 PM CDT) Glucose, POC 69(L) 70 - 199 mg/dL [facility] Blood specimen (specimen) 11/04/2017 2:39 PM CDT 11/04/2017 2:39 PM CDT Narrative [facility] - 11/04/2017 2:40 PM CDT Zhen Carter MD LAB POCT ORDERABLES - DEVICE Final Result Performing Organization Address [facility] de Phone Number MARY JANE ARNOLD [address] [address] [facility] [employer] [place] [address] * POCT glucose (11/04/2017 12:18 PM CDT) Glucose, POC 126 70 - 199 mg/dL [facility] Blood specimen (specimen) 11/04/2017 12:18 PM CDT 11/04/2017 12:18 PM CDT Narrative [facility] - 11/04/2017 12:19 PM CDT Zhen Carter MD LAB POCT ORDERABLES - DEVICE Final Result Performing Organization Address [facility] [[email or web address]] Co de Phone Number MARY JANE ARNOLD [address] [address] [facility] [employer] [place] [address] * POCT glucose (11/04/2017 10:58 AM CDT) Glucose, POC 178 70 - 199 mg/dL [facility] Blood specimen (specimen) 11/04/2017 10:58 AM CDT 11/04/2017 10:58 AM CDT Narrative [facility] - 11/04/2017 10:59 AM CDT Zhen Carter MD LAB POCT ORDERABLES - DEVICE Final Result Performing Organization Address [facility] de Phone Number MARY JANE ARNOLD [address] [address] Department [employer] [place] [address] * (ABNORMAL) POCT glucose (11/04/2017 8:36 AM CDT) Glucose, POC 305(H) 70 - 199 mg/dL [facility] Blood specimen (specimen) 11/04/2017 8:36 AM CDT 11/04/2017 8:36 AM CDT Narrative [facility] - 11/04/2017 8:37 AM CDT Bia Hensley MD LAB POCT ORDERABLES - DEVIC E Final Result Performing Organization Address [facility] [[email or web address]] Co de Phone Number MARY JANE ARNOLD [address] [address] [facility] [employer] [place] [address] * (ABNORMAL) POCT glucose (11/04/2017 6:32 AM CDT) Glucose, POC 265(H) 70 - 199 mg/dL [facility] Blood specimen (specimen) 11/04/2017 6:32 AM CDT 11/04/2017 6:32 AM CDT Narrative MARY JANE - 11/04/2017 6:54 AM CDT Bia Hensley MD LAB POCT ORDERABLES - DEVIC E Final Result Performing Organization Address City/[facility]/ZIP Co de Phone Number MARY JANE [address] [employer] [place] [address] * (ABNORMAL) CBC without differential (11/04/2017 4:28 AM CDT) WBC 12.7(H) 3.8 - 9.9 K/cumm [facility] Hgb 11.3(L) 11.9 - 15.5 g/dL [facility] Hct 35.9 35.6 - 45.5 % [facility] Plt 263 150 - 400 K/cumm [facility] MPV 10.8 9.1 - 12.3 fL [facility] RBC 4.14 3.90 - 5.20 M/cumm [facility] MCV 86.7 81.3 - 96.4 fL [facility] MCH 27.3 27.1 - 33.3 pg [facility] MCHC 31.5(L) 32.3 - 35.7 g/dL [facility] RDW CV 14.8 11.1 - 14.9 % [facility] RDW SD 47.3 35.7 - 48.1 fL [facility] NRBC abs 0.00 0.00 - 0.01 K/cumm [facility] Blood specimen (specimen) 11/04/2017 4:28 AM CDT 11/04/2017 5:09 AM CDT Narrative MARY JANE - 11/04/2017 5:14 AM CDT Jose Santos MD LAB BLOOD ORDERABLES Final Resul t MARY JANE ARNOLD [address] [place] [address] * (ABNORMAL) POCT glucose (11/04/2017 4:09 AM CDT) Glucose, POC 298(H) 70 - 199 mg/dL [facility] Blood specimen (specimen) 11/04/2017 4:09 AM CDT 11/04/2017 4:09 AM CDT Narrative [facility] - 11/04/2017 4:10 AM CDT Bia Hensley MD LAB POCT ORDERABLES - DEVIC E Final Result Performing Organization Address [facility] [[email or web address]] Co de Phone Number [facility] [address] [address] [facility] [employer] [place] [address] * (ABNORMAL) POCT glucose (11/04/2017 1:29 AM CDT) Glucose, POC 356(H) 70 - 199 mg/dL [facility] Blood specimen (specimen) 11/04/2017 1:29 AM CDT 11/04/2017 1:29 AM CDT Narrative [facility] - 11/04/2017 1:30 AM CDT Bia Hensley MD LAB POCT ORDERABLES - DEVIC E Final Result Performing Organization Address [facility] [[email or web address]] Co de Phone Number [facility] [address] [address] [facility] [employer] [place] [address] * (ABNORMAL) POCT glucose (11/03/2017 11:36 PM CDT) Glucose, POC 351(H) 70 - 199 mg/dL [facility] Blood specimen (specimen) 11/03/2017 11:36 PM CDT 11/03/2017 11:36 PM CDT Narrative [facility] - 11/03/2017 11:40 PM CDT Bia Hensley MD LAB POCT ORDERABLES - DEVIC E Final Result MARY JANE ARNOLD [address] [facility] [employer] [place] [address] * (ABNORMAL) POCT glucose (11/03/2017 8:57 PM CDT) Glucose, POC 400(H) 70 - 199 mg/dL [facility] Blood specimen (specimen) 11/03/2017 8:57 PM CDT 11/03/2017 8:57 PM CDT Narrative [facility] - 11/03/2017 8:58 PM CDT Bia Hensley MD LAB POCT ORDERABLES - DEVIC E Final Result Performing Organization Address [facility] [[email or web address]] Co de Phone Number MARY JANE ARNOLD [address] [address] [facility] [employer] [place] [address] * (ABNORMAL) POCT glucose (11/03/2017 7:56 PM CDT) Glucose, POC 455(C) 70 - 199 mg/dL [facility] Glucose comment 1 RN/MD Notified [facility] Blood specimen (specimen) 11/03/2017 7:56 PM CDT 11/03/2017 7:56 PM CDT Narrative [facility] - 11/03/2017 8:08 PM CDT Bia Hensley MD LAB POCT ORDERABLES - DEVIC E Final Result Performing Organization Address City/[facility]/ZIP Co de Phone Number MARY JANE ARNOLD [address] [address] [facility] [employer] [place] [address] * (ABNORMAL) POCT glucose (11/03/2017 5:01 PM CDT) Glucose, POC 417(H) 70 - 199 mg/dL [facility] Blood specimen (specimen) 11/03/2017 5:01 PM CDT 11/03/2017 5:01 PM CDT Narrative [facility] - 11/03/2017 5:02 PM CDT Bia Hensley MD LAB POCT ORDERABLES - DEVIC E Final Result Performing Organization Address [facility] de Phone Number MARY JANE ARNOLD [address] [address] [facility] [employer] [address] * (ABNORMAL) POCT glucose (11/03/2017 1:39 PM CDT) Glucose, POC 272(H) 70 - 199 mg/dL [facility] Blood specimen (specimen) 11/03/2017 1:39 PM CDT 11/03/2017 1:39 PM CDT Narrative [facility] - 11/03/2017 1:40 PM CDT Bia Hensley MD LAB POCT ORDERABLES - DEVIC E Final Result Performing Organization Address [facility] de Phone Number BCPU[facility] ARNOLD [address] [address] [facility] [employer] [place] [address] * POCT glucose (11/03/2017 12:09 PM CDT) Glucose, POC 167 70 - 199 mg/dL [facility] Blood specimen (specimen) 11/03/2017 12:09 PM CDT 11/03/2017 12:09 PM CDT Narrative [facility] - 11/03/2017 12:11 PM CDT Bia Hensley MD LAB POCT ORDERABLES - DEVIC E Final Result Performing Organization Address [facility] de Phone Number B[facility] ARNOLD [address] [address] [facility] [employer] [place] [address] * (ABNORMAL) POCT glucose (11/03/2017 8:14 AM CDT) Glucose, POC 290(H) 70 - 199 mg/dL [facility] Blood specimen (specimen) 11/03/2017 8:14 AM CDT 11/03/2017 8:14 AM CDT Narrative MARY JANE - 11/03/2017 8:16 AM CDT Bia Hensley MD LAB POCT ORDERABLES - DEVIC E Final Result Performing Organization Address [facility] de Phone Number MARY JANE ARNOLD [address] [place] [address] * (ABNORMAL) POCT glucose (11/03/2017 6:08 AM CDT) [facility] Glucose, POC 305(H) 70 - 199 mg/dL [facility] Blood specimen (specimen) 11/03/2017 6:08 AM CDT 11/03/2017 6:08 AM CDT Narrative MARY JANE - 11/03/2017 6:09 AM CDT Bia Hensley MD LAB POCT ORDERABLES - DEVIC E Final Result Performing Organization Address [facility] de Phone Number MARY JANE ARNOLD [address] Department [place] [address] * (ABNORMAL) CBC without differential (11/03/2017 4:52 AM CDT) [facility] WBC 12.2(H) 3.8 - 9.9 K/cumm [facility] Hgb 11.3(L) 11.9 - 15.5 g/dL [facility] Hct 36.9 35.6 - 45.5 % [facility] Plt 281 150 - 400 K/cumm [facility] MPV 10.3 9.1 - 12.3 fL [facility] RBC 4.21 3.90 - 5.20 M/cumm [facility] MCV 87.6 81.3 - 96.4 fL [facility] MCH 26.8(L) 27.1 - 33.3 pg [facility] MCHC 30.6(L) 32.3 - 35.7 g/dL [facility] RDW CV 14.9 11.1 - 14.9 % [facility] RDW SD 48.1 35.7 - 48.1 fL [facility] NRBC abs 0.00 0.00 - 0.01 K/cumm [facility] Blood specimen (specimen) 11/03/2017 4:52 AM CDT 11/03/2017 5:06 AM CDT Narrative [facility] - 11/03/2017 5:14 AM CDT Jose Santos MD LAB BLOOD ORDERABLES Final Resul t Performing Organization Address [facility] [[email or web address]] Co de Phone Number MARY JANE ARNOLD [id number] [facility] [employer] [place], [place] [id number] * (ABNORMAL) POCT glucose (11/03/2017 3:32 AM CDT) Glucose, POC 343(H) 70 - 199 mg/dL [facility] Blood specimen (specimen) 11/03/2017 3:32 AM CDT 11/03/2017 3:32 AM CDT Narrative [facility] - 11/03/2017 3:33 AM CDT Bia Hensley MD LAB POCT ORDERABLES - DEVIC E Final Result Performing Organization Address [facility] [facility] [[email or web address]] Co de Phone Number BCPUJA ARNOLD [phone] [address] [facility] [employer] [place], [place] [id number] * (ABNORMAL) POCT glucose (11/03/2017 2:03 AM CDT) Glucose, POC 392(H) 70 - 199 mg/dL [facility] Blood specimen (specimen) 11/03/2017 2:03 AM CDT 11/03/2017 2:03 AM CDT Narrative [facility] - 11/03/2017 2:04 AM CDT Bia Hensley MD LAB POCT ORDERABLES - DEVIC E Final Result Performing Organization Address [facility] [[email or web address]] Co de Phone Number BCPUJA ARNOLD [address] [place] [address] * Troponin I (11/02/2017 9:50 PM CDT) [facility] Troponin I <0.03 0.00 - 0.14 ng/mL [facility] Comment: Interpretive Data Normal: ? 0.00 - 0.14 ng/mL Indeterminate: ?0.15 - 0.50 ng/mL NV / Cardiac Muscle Damage: ? >0.50 ng/mL Current interpretive data was last reviewed 2015 Blood specimen (specimen) 11/02/2017 9:50 PM CDT 11/02/2017 10:05 PM CDT Narrative [facility] - 11/02/2017 10:40 PM CDT Britney Zavala [employer] [facility] LAB BLOOD ORDERABLES Deann l Result Performing Organization Address City/[facility]/ZIP Co de Phone Number [facility] [phone] [address] [employer] [place], [place] [phone] * (ABNORMAL) POCT glucose (11/02/2017 9:07 PM CDT) [facility] Glucose, POC 435(H) 70 - 199 mg/dL [facility] Blood specimen (specimen) 11/02/2017 9:07 PM CDT 11/02/2017 9:07 PM CDT Narrative [facility] - 11/02/2017 9:09 PM CDT us Bia Hensley MD LAB POCT ORDERABLES - DEVIC E Final Result Performing Organization Address [facility]/ZIP Co de Phone Number [facility] [phone] [facility] [place] [address] * (ABNORMAL) POCT glucose (11/02/2017 8:03 PM CDT) [facility] Glucose, POC 476(C) 70 - 199 mg/dL [facility] Glucose comment 1 RN/MD Notified [facility] Blood specimen (specimen) 11/02/2017 8:03 PM CDT 11/02/2017 8:03 PM CDT Narrative [facility] - 11/02/2017 8:13 PM CDT Bia Hensley MD LAB POCT ORDERABLES - DEVIC E Final Result Performing Organization Address City/[facility] [[email or web address]] Co de Phone Number MARY JANE ARNOLD [address] [address] [facility] [employer] [place], [place] [phone] * (ABNORMAL) POCT glucose (11/02/2017 6:40 PM CDT) Glucose, POC 401(H) 70 - 199 mg/dL [facility] Blood specimen (specimen) 11/02/2017 6:40 PM CDT 11/02/2017 6:40 PM CDT Narrative [facility] - 11/02/2017 6:41 PM CDT Bia Hensley MD LAB POCT ORDERABLES - DEVIC E Final Result Performing Organization Address [facility] [[email or web address]] Co de Phone Number MARY JANE ARNOLD [phone] [address] [facility] [employer] [place] [address] * (ABNORMAL) POCT glucose (11/02/2017 4:35 PM CDT) Glucose, POC 366(H) 70 - 199 mg/dL [facility] Blood specimen (specimen) 11/02/2017 4:35 PM CDT 11/02/2017 4:35 PM CDT Narrative [facility] - 11/02/2017 4:49 PM CDT Bia Hensley MD LAB POCT ORDERABLES - DEVIC E Final Result Performing Organization Address City/[facility] [[email or web address]] Co de Phone Number MARY JANE ARNOLD [phone] [address] [facility] [employer] [place] [address] * eGFR (11/02/2017 11:48 AM CDT) eGFR 85 mL/min/1.7 3 m2 [facility] J[facility] ARNOLD Comment: Interpretive Data Reference Interval Normal ?>/= 90 mL/min/1.73m2 Mildly decreased* ? 60 - 89 mL/min/1.73m2 Mildly to moderately decreased ?45 - 59 mL/min/1.73m2 Moderately to severely decreased ??30 - 44 mL/min/1.73m2 Severely decreased ?15 - 29 mL/min/1.73m2 Kidney Failure ?< 15 ??mL/min/1.73m2 *Relative to young adult level If -Barbadian multiply value by 1.16. Estimated glomerular filtration [...] was last reviewed 2015. Blood specimen (specimen) 11/02/2017 11:48 AM CDT 11/02/2017 11:50 AM CDT Narrative [facility] - 11/02/2017 12:06 PM CDT us Jose Santos MD LAB BLOOD ORDERABLES Final Resul t [facility]ARY JANE [phone] [address] Department [place] [address] * Creatinine (11/02/2017 11:48 AM CDT) Creatinine 0.76 0.60 - 1.30 mg/dL [facility] Blood specimen (specimen) 11/02/2017 11:48 AM CDT 11/02/2017 11:50 AM CDT Narrative [facility] - 11/02/2017 12:06 PM CDT Unless preformed in the last 48 hours. Draw prior to enoxaparin administration. Jose Santos MD LAB BLOOD ORDERABLES Final Resul t Performing Organization Address [facility] [[email or web address]] Co de Phone Number MARY JANE [phone] [address] Department of [employer] [place] [address] * aPTT (11/02/2017 11:48 AM CDT) aPTT 31.4 25.0 - 37.0 sec [facility] Blood specimen (specimen) 11/02/2017 11:48 AM CDT 11/02/2017 11:50 AM CDT Narrative [facility] - 11/02/2017 12:05 PM CDT Unless preformed in the last 48 hours. Draw prior to enoxaparin administration. Jose Santos MD LAB BLOOD ORDERABLES Final Resul t Performing Organization Address [facility] [[email or web address]] Co de Phone Number [facility] [phone] [address] Department [employer] [place], [place] [phone] * Protime-INR (11/02/2017 11:48 AM CDT) PT 13.0 9.5 - 13.0 sec [facility] INR 1.15 0.90 - 1.20 [facility] Blood specimen (specimen) 11/02/2017 11:48 AM CDT 11/02/2017 11:50 AM CDT Narrative [facility] - 11/02/2017 12:03 PM CDT Unless preformed in the last 48 hours. Draw prior to enoxaparin administration. Jose Santos MD LAB BLOOD ORDERABLES Final Resul t Performing Organization Address City/[facility] [[email or web address]] Co de Phone Number [facility] [phone] [address] Department [employer] [place] [address] * (ABNORMAL) CBC without differential (11/02/2017 11:48 AM CDT) Pathologist [facility] WBC 14.7(H) 3.8 - 9.9 K/cumm [facility] RBC 4.40 3.90 - 5.20 M/cumm [facility] Hgb 12.1 11.9 - 15.5 g/dL [facility] Hct 38.4 35.6 - 45.5 % [facility] MCV 87.3 81.3 - 96.4 fL [facility] MCH 27.5 27.1 - 33.3 pg [facility] MCHC 31.5(L) 32.3 - 35.7 g/dL [facility] RDW CV 14.9 11.1 - 14.9 % [facility] RDW SD 48.0 35.7 - 48.1 fL [facility] Plt 303 150 - 400 K/cumm [facility] MPV 10.1 9.1 - 12.3 fL [facility] NRBC abs 0.00 0.00 - 0.01 K/cumm [facility] Blood specimen (specimen) 11/02/2017 11:48 AM CDT 11/02/2017 11:50 AM CDT Narrative [facility] - 11/02/2017 11:56 AM CDT Unless preformed in the last 48 hours. Draw prior to enoxaparin administration. us Jose Santos MD LAB BLOOD ORDERABLES Final Resul t [facility] [phone] [address] Department [place] [address] * Troponin I (11/02/2017 11:48 AM CDT) Pathologist [facility] Troponin I <0.03 0.00 - 0.14 ng/mL [facility] Comment: Interpretive Data Normal: ? 0.00 - 0.14 ng/mL Indeterminate: ?0.15 - 0.50 ng/mL NV / Cardiac Muscle Damage: ? >0.50 ng/mL Current interpretive data was last reviewed 2015 Blood specimen (specimen) 11/02/2017 11:48 AM CDT 11/02/2017 11:50 AM CDT Narrative [facility] - 11/02/2017 12:15 PM CDT Britney Zavala [employer] LAB BLOOD ORDERABLES Deann l Result Performing Organization Address City/[facility]/ZIP Co de Phone Number [facility] [phone] [address] Department of [employer] [place] [address] * (ABNORMAL) POCT glucose (11/02/2017 10:59 AM CDT) Glucose, POC 312(H) 70 - 199 mg/dL [facility] Blood specimen (specimen) 11/02/2017 10:59 AM CDT 11/02/2017 10:59 AM CDT Narrative [facility] 11/02/2017 11:09 AM CDT Bia Hensley MD LAB POCT ORDERABLES - DEVIC E Final Result Performing Organization Address [facility] [[email or web address]] Co de Phone Number [facility] [phone] [facility] [place] [address] * ECG 12 lead (11/02/2017 8:56 AM CDT) Patient age [address] [facility] Interpretation Text SINUS RHYTHM WITH SHORT VA INTERVALBORDERLINE ECGPREVIOUS TRACIN11/01/2017 19.42Compared to prior ECG Sinus tachycardia is no longer present. [facility] Comment:Physician Interprete r Dr. Ramon De M.D. Ventricular Rate EKG/Min 73 /min [facility] P Wave Duration [address] [facility] QRS-Interval (MSEC) [address] [facility] VA-Interval (MSEC) [address] [facility] QT Interval [address] [facility] QTc [address] [facility] QTC Interval ms [facility] P Burr -[address] [facility] QRS Burr [address] [facility] T Burr [address] [facility] 11/02/2017 8:56 AM CDT us Britney Zavala [employer] ECG ORDERABLES Final Res ult [facility] * Lipid panel (11/02/2017 8:14 AM CDT) Cholesterol 178 100 - 200 mg/dL [facility] Comment: Interpretive Data Desirable: ?<200 mg/dL Borderline high: ??200-239 mg/dL High: ? >240 mg/dL Current interpretive data was last revised on 2015. Triglycerides 86 10 - 150 mg/dL [facility] Comment: Interpretive Data Desirable: ? < 150 ? mg/dL Borderline High: ? 150 - 199 mg/dL High: ?200 - 499 mg/dL Very High: ? > or = 499 ??mg/dL Current interpretive data was last revised on 2015. HDL 51 40 - 59 mg/dL [facility] Comment: Interpretive Data Less than 40 mg/dL - Low; A major risk factor for heart disease. Greater than or equal to 60 mg/dL - High; ??Considered protective of heart disease. Current interpretive data was last revised on 2015. LDL, calculated 110 60 - 129 mg/dL [facility] Comment: Interpretive Data Optimal: ? < 100 mg/dL Near Optimal: ?100 - 129 mg/dL Borderline High: ?? 130 - 159 mg/dL High: ?> 160 mg/dL Current interpretive data was last revised on 2015. Non-HDL Cholesterol 127 mg/dL [facility] Comment: Interpretive Data When triglycerides are >200 mg/dL, non-HDL C is a secondary target of therapy, with a goal 30 mg/dL higher than the identified LDL-C goal. Current interpretive data was last revised 2015. Blood specimen (specimen) 11/02/2017 8:14 AM CDT 11/02/2017 8:20 AM CDT Narrative [facility] - 11/02/2017 8:50 AM CDT Lucy Yu DO LAB BLOOD ORDERABLES Final Resu lt Performing Organization Address [facility] [[email or web address]] Co de Phone Number MARY JANE ARNOLD [phone] [address] [place] [address] * Troponin I (11/02/2017 8:14 AM CDT) Troponin I <0.03 0.00 - 0.14 ng/mL [facility] ARNOLD Comment: Interpretive Data Normal: ? 0.00 - 0.14 ng/mL Indeterminate: ?0.15 - 0.50 ng/mL NV / Cardiac Muscle Damage: ? >0.50 ng/mL Current interpretive data was last reviewed 2015 Blood specimen (specimen) 11/02/2017 8:14 AM CDT 11/02/2017 8:20 AM CDT Johnathan HINTON - 11/02/2017 8:48 AM CDT Britney Zavala [employer] LAB BLOOD ORDERABLES Deann l Result Performing Organization Address [facility] [[email or web address]] Co de Phone Number MARY JANE ARNOLD [phone] [address] [employer] [place] [address] * (ABNORMAL) POCT glucose (11/02/2017 6:47 AM CDT) Glucose, POC 229(H) 70 - 199 mg/dL [facility] Blood specimen (specimen) 11/02/2017 6:47 AM CDT 11/02/2017 6:47 AM CDT Narrative [facility] - 11/02/2017 6:48 AM CDT Bia Hensley MD LAB POCT ORDERABLES - DEVIC E Final Result Performing Organization Address [facility] de Phone Number [facility] [phone] [address] [facility] [employer] [place] [address] * (ABNORMAL) POCT glucose (11/02/2017 4:56 AM CDT) Glucose, POC 242(H) 70 - 199 mg/dL [facility] Blood specimen (specimen) 11/02/2017 4:56 AM CDT 11/02/2017 4:56 AM CDT Narrative [facility] - 11/02/2017 4:57 AM CDT Lucy Yu DO LAB POCT ORDERABLES - DEVICE Fi nal Result Performing Organization Address [facility] de Phone Number [facility] [address] [address] [employer] [place] [address] * (ABNORMAL) POCT glucose (11/02/2017 3:49 AM CDT) Glucose, POC 266(H) 70 - 199 mg/dL [facility] Blood specimen (specimen) 11/02/2017 3:49 AM CDT 11/02/2017 3:49 AM CDT Narrative [facility] - 11/02/2017 3:51 AM CDT Notinfile Unknown LAB POCT ORDERABLES - DEVICE F inal Result Performing Organization Address [facility] de Phone Number [facility] [phone] [address] [facility] [employer] [place] [address] * Troponin I (11/02/2017 1:40 AM CDT) Troponin I <0.03 0.00 - 0.14 ng/mL [facility] Comment: Interpretive Data Normal: ? 0.00 - 0.14 ng/mL Indeterminate: ?0.15 - 0.50 ng/mL NV / Cardiac Muscle Damage: ? >0.50 ng/mL Current interpretive data was last reviewed 2015 Blood specimen (specimen) 11/02/2017 1:40 AM CDT 11/02/2017 2:03 AM CDT Narrative [facility] - 11/02/2017 2:25 AM CDT Enmanuel Dubon MD LAB BLOOD ORDERABLES Final Result Performing Organization Address [facility] [[email or web address]] Co de Phone Number [facility] [address] [address] [employer] [place] [address] * (ABNORMAL) POCT glucose (11/02/2017 12:18 AM CDT) Glucose, POC 291(H) 70 - 199 mg/dL [facility] Blood specimen (specimen) 11/02/2017 12:18 AM CDT 11/02/2017 12:18 AM CDT Narrative [facility] - 11/02/2017 12:21 AM CDT Notinfile Unknown LAB POCT ORDERABLES - DEVICE F inal Result Performing Organization Address [facility] de Phone Number [facility] [address] [address] [employer] [place] [address] * CT Chest PE W Contrast (11/01/2017 11:11 PM CDT) Anatomical Region Laterality Modality Body N/A Computed Tomogra phy 11/02/2017 7:25 AM CDT Impressions 11/02/2017 7:31 AM CDT No evidence of pulmonary embolus or aortic dissection. A stat report was issued by [facility] on 11/02/2017 at 0018. Electronically signed by: Sara Burk M.D. Narrative 11/02/2017 7:31 AM CDT EXAM: CT chest with contrast PE protocol DATE: 11/01/2017 10:45 PM CLINICAL HISTORY: Shortness of breath, history of pulmonary embolus TECHNIQUE: After the uneventful intravenous administration of 93 mL Optiray 350, computed tomographic images of the chest were obtained in the axial plane. Coronal and oblique sagittal reformatted images were performed. ??Comparison was made to a prior CT chest with contrast from 08/03/2017. FINDINGS: The aorta and its proximal branches are patent without evidence of thrombus, embolus or dissection. The main pulmonary artery, right and left pulmonary arteries and pulmonary artery branches are normal without evidence of thrombus, embolus or dissection. The lungs are clear. The pulmonary vasculature is normal. There is no pneumothorax or pleural effusion. ??The trachea and mainstem bronchi are patent. The visible portion of the right thyroid lobe is slightly prominent in size. ??The visible portion of the thyroid gland is heterogenous in appearance with suspicion for hypoechoic nodules. The heart size is normal. ??A prevascular lymph node measures 10 mm in short axis diameter. ??There is no axillary adenopathy. The visible portions of the upper abdomen are normal. The subcutaneous tissues are normal. There is mild multilevel thoracic spine degenerative disc disease. Procedure Note Bhargavi, Sara Doherty MD - 11/02/2017 EXAM: CT chest with contrast PE protocol DATE: 11/01/2017 10:45 PM CLINICAL HISTORY: Shortness of breath, history of pulmonary embolus TECHNIQUE: After the uneventful intravenous administration of 93 mL Optiray 350, computed tomographic images of the chest were obtained in the axial plane. Coronal and oblique sagittal reformatted images were performed. Comparison was made to a prior CT chest with contrast from 08/03/2017. FINDINGS: The aorta and its proximal branches are patent without evidence of thrombus, embolus or dissection. The main pulmonary artery, right and left pulmonary arteries and pulmonary artery branches are normal without evidence of thrombus, embolus or dissection. The lungs are clear. The pulmonary vasculature is normal. There is no pneumothorax or pleural effusion. The trachea and mainstem bronchi are patent. The visible portion of the right thyroid lobe is slightly prominent in size. The visible portion of the thyroid gland is heterogenous in appearance with suspicion for hypoechoic nodules. The heart size is normal. A prevascular lymph node measures 10 mm in short axis diameter. There is no axillary adenopathy. The visible portions of the upper abdomen are normal. The subcutaneous tissues are normal. There is mild multilevel thoracic spine degenerative disc disease. IMPRESSION: No evidence of pulmonary embolus or aortic dissection. A stat report was issued by [facility] on 11/02/2017 at 0018. Electronically signed by: Sara Burk M.D. Enmanuel Dubon MD IMG CT PROCEDURES Final Res ult * Troponin I (11/01/2017 10:36 PM CDT) [facility] Troponin I <0.03 0.00 - 0.14 ng/mL [facility] Comment: Interpretive Data Normal: ? 0.00 - 0.14 ng/mL Indeterminate: ?0.15 - 0.50 ng/mL NV / Cardiac Muscle Damage: ? >0.50 ng/mL Current interpretive data was last reviewed 2015 Blood specimen (specimen) 11/01/2017 10:36 PM CDT 11/01/2017 10:42 PM CDT Narrative [facility] - 11/01/2017 11:08 PM CDT Enmanuel Dubon MD LAB BLOOD ORDERABLES Final Result Performing Organization Address [facility] [[email or web address]] Co ri Phone Number [facility] [phone] [facility] Department [place] [address] * (ABNORMAL) POCT glucose (11/01/2017 9:58 PM CDT) [facility] Glucose, POC 344(H) 70 - 199 mg/dL [facility]ARY JANE Blood specimen (specimen) 11/01/2017 9:58 PM CDT 11/01/2017 9:58 PM CDT Narrative [facility] - 11/01/2017 10:03 PM CDT Notinfile Unknown LAB POCT ORDERABLES - DEVICE F inal Result Performing Organization Address City/[facility] [[email or web address]] [place] [address] Department [place] [address] * XR Chest 1 Vw Portable (11/01/2017 8:00 PM CDT) Anatomical Region Laterality Modality Body, Chest N/A Computed Radiogr aphy 11/01/2017 8:17 PM CDT Impressions 11/01/2017 8:18 PM CDT No acute cardiopulmonary process. Electronically signed by: Sara Burk M.D. Narrative 11/01/2017 8:18 PM CDT EXAM: Portable chest DATE: 11/01/2017 7:30 PM CLINICAL HISTORY: Chest pain, shortness of breath, rapid heart rate, hypertension and hyperglycemia FINDINGS: A single portable AP view of the chest was submitted for review. ??Comparison was made to a prior two-view chest from 08/18/2017. The lungs are clear. The pulmonary vasculature is normal. There is no evidence of pneumothorax or pleural effusion on this single view exam. The heart size is stable. The aortic contour is normal. Procedure Note Sara Burk MD - 11/01/2017 EXAM: Portable chest DATE: 11/01/2017 7:30 PM CLINICAL HISTORY: Chest pain, shortness of breath, rapid heart rate, hypertension and hyperglycemia FINDINGS: A single portable AP view of the chest was submitted for review. Comparison was made to a prior two-view chest from 08/18/2017. The lungs are clear. The pulmonary vasculature is normal. There is no evidence of pneumothorax or pleural effusion on this single view exam. The heart size is stable. The aortic contour is normal. IMPRESSION: No acute cardiopulmonary process. Electronically signed by: Sara Burk M.D. Sandra MCKEON IMMichael XR PROCEDURES Final Re sult * ECG 12 lead (11/01/2017 7:42 PM CDT) Patient age [address] [facility] Interpretation Text SINUS TACHYCARDIANONSPECIFIC T-WAVE ABNORMALITYABNORMAL RHYTHM ECGPREVIOUS TRACIN11/01/2017 18.31Compared to prior ECG Sinus tachycardia is new. [facility] Comment:Physician Interprete r Dr. Ramon De M.D. Ventricular Rate EKG/Min 104 /min [facility] P Wave Duration 107 ms [facility] QRS-Interval (MSEC) 86 ms [facility] VA-Interval (MSEC) 125 ms [facility] QT Interval 352 ms [facility] QTc 429 ms [facility] QTC Interval ms [facility] P Burr 46 deg [facility] QRS Burr 19 deg [facility] T Burr 67 deg [facility] 11/01/2017 7:42 PM CDT Erick Davis MD ECG ORDERABLES Final Resu lt [facility] * (ABNORMAL) POCT glucose (11/01/2017 7:37 PM CDT) Pathologist [facility] Glucose, POC 402(H) 70 - 199 mg/dL [facility] Blood specimen (specimen) 11/01/2017 7:37 PM CDT 11/01/2017 7:37 PM CDT Narrative [facility] - 11/01/2017 7:39 PM CDT Notinfile Unknown LAB POCT ORDERABLES - DEVICE F inal Result Performing Organization Address City/[facility]/ZIP Co de Phone Number [facility] [address] [address] Department of Laboratories [place] [phone] * eGFR (11/01/2017 7:11 PM CDT) eGFR 69 mL/min/1.7 3 m2 [facility] Comment: Interpretive Data Reference Interval Normal ?>/= 90 mL/min/1.73m2 Mildly decreased* ? 60 - 89 mL/min/1.73m2 Mildly to moderately decreased ?45 - 59 mL/min/1.73m2 Moderately to severely decreased ??30 - 44 mL/min/1.73m2 Severely decreased ?15 - 29 mL/min/1.73m2 Kidney Failure ?< 15 ??mL/min/1.73m2 *Relative to young adult level If -Barb[place] multiply value by 1.16. Estimated glomerular filtration [...] was last reviewed 2015. Blood specimen (specimen) 11/01/2017 7:11 PM CDT 11/01/2017 7:17 PM CDT Narrative [facility] - 11/01/2017 7:57 PM CDT Yeni Crespo NP LAB BLOOD ORDERABLES Final Result [facility] [phone] [address] Department [place] [address] * (ABNORMAL) Differential, auto (11/01/2017 7:11 PM CDT) Neutrophil abs 14.2(H) 1.7 - 6.5 K/cumm [facility] Imm gran abs 0.1 0.0 - 0.1 K/cumm [facility] Lymphocyte abs 1.6 0.8 - 3.3 K/cumm [facility] Monocyte abs 1.2(H) 0.2 - 0.8 K/cumm [facility] Eosinophil abs 0.0 0.0 - 0.5 K/cumm [facility] Basophil abs 0.0 0.0 - 0.1 K/cumm [facility] Neutrophil pct 82.8 % [facility] Comment: Interpretive Data Percent cell count reference ranges are not reported, since discordance with absolute values may lead to misinterpretation of CBC data. Current Interpretive Data was last revised on 2017. Imm gran pct 0.8 % MARY [facility]ANE Comment: Interpretive Data Percent cell count reference ranges are not reported, since discordance with absolute values may lead to misinterpretation of CBC data. Current Interpretive Data was last revised on 2017. Lymphocyte pct 9.5 % [facility] Comment: Interpretive Data Percent cell count reference ranges are not reported, since discordance with absolute values may lead to misinterpretation of CBC data. Current Interpretive Data was last revised on 2017. Monocyte pct 6.7 % [facility] Comment: Interpretive Data Percent cell count reference ranges are not reported, since discordance with absolute values may lead to misinterpretation of CBC data. Current Interpretive Data was last revised on 2017. Eosinophil pct 0.0 % [facility] Comment: Interpretive Data Percent cell count reference ranges are not reported, since discordance with absolute values may lead to misinterpretation of CBC data. Current Interpretive Data was last revised on 2017. Basophil pct 0.2 % [facility] Comment: Interpretive Data Percent cell count reference ranges are not reported, since discordance with absolute values may lead to misinterpretation of CBC data. Current Interpretive Data was last revised on 2017. Blood specimen (specimen) 11/01/2017 7:11 PM CDT 11/01/2017 7:16 PM CDT Narrative MARY JANE - 11/01/2017 7:43 PM CDT Yeni Crespo NP LAB BLOOD ORDERABLES Final Result Performing Organization Address City/State/[facility] [[email or web address]] Co ri Phone Number MARY JANE [phone] [address] Department [place] [address] * Troponin I (11/01/2017 7:11 PM CDT) Troponin I 0.05 0.00 - 0.14 ng/mL [facility]ARY JANE Comment: Interpretive Data Normal: ? 0.00 - 0.14 ng/mL Indeterminate: ?0.15 - 0.50 ng/mL [place] / Cardiac Muscle Damage: ? >0.50 ng/mL Current interpretive data was last reviewed 2015 Blood specimen (specimen) 11/01/2017 7:11 PM CDT 11/01/2017 7:17 PM CDT Narrative MARY JANE - 11/01/2017 8:00 PM CDT eYni Crespo S[facility] LAB BLOOD ORDERABLES Final Result Performing Organization Address [facility] [[email or web address]] Co de Phone Number [facility] [phone] [address] [facility] [employer] [address] * B-type natriuretic peptide (11/01/2017 7:11 PM CDT) [facility] B-Type Natriuretic Peptide (BNP) 34 0 - 100 pg/mL [facility] Blood specimen (specimen) 11/01/2017 7:11 PM CDT 11/01/2017 7:17 PM CDT Narrative MARY JANE - 11/01/2017 9:19 PM CDT Yeni Crespo [facility] LAB BLOOD ORDERABLES Final Result Performing Organization Address [facility] de Phone Number [facility] [phone] [facility] [place] [address] * (ABNORMAL) Comprehensive metabolic panel (11/01/2017 7:11 PM CDT) Sodium 134(L) 135 - 145 mmol/L [facility] Potassium, pl 5.0 3.5 - 5.1 mmol/L [facility] Chloride 103 100 - 114 mmol/L [facility] CO2 24 22 - 32 mmol/L [facility] Anion gap 12 8 - 16 mmol/L [facility] BUN 25(H) 8 - 24 mg/dL [facility] Creatinine 0.90 0.60 - 1.30 mg/dL [facility] Glucose 429(H) 70 - 199 mg/dL [facility] Comment: Interpretive Data Fasting glucose >/= [...] - 1.30 mg/dL [facility] Protein, pl 7.8 6.0 - 8.3 g/dL [facility] Albumin 3.4 3.2 - 4.8 g/dL [facility] Alk phos 81 30 - 110 Units/L [facility] ALT 25 1 - 45 Units/L [facility] AST 22 7 - 40 Units/L [facility] Blood specimen (specimen) 11/01/2017 7:11 PM CDT 11/01/2017 7:17 PM CDT Narrative [facility] - 11/01/2017 7:57 PM CDT Yeni Crespo NP LAB BLOOD ORDERABLES Final Result [facility] [id number] [address] Department [place] [address] * (ABNORMAL) CBC with auto differential (11/01/2017 7:11 PM CDT) WBC 17.1(H) 3.8 - 9.9 K/cumm [facility] RBC 4.69 3.90 - 5.20 M/cumm [facility] Hgb 12.7 11.9 - 15.5 g/dL [facility] Hct 40.6 35.6 - 45.5 % [facility] MCV 86.6 81.3 - 96.4 fL [facility] MCH 27.1 27.1 - 33.3 pg [facility] MCHC 31.3(L) 32.3 - 35.7 g/dL [facility] RDW CV 14.9 11.1 - 14.9 % [facility] RDW SD 47.1 35.7 - 48.1 fL [facility] Plt 347 150 - 400 K/cumm [facility] MPV 10.4 9.1 - 12.3 fL [facility] NRBC abs 0.00 0.00 - 0.01 K/cumm [facility] Blood specimen (specimen) 11/01/2017 7:11 PM CDT 11/01/2017 7:16 PM CDT Narrative [facility] - 11/01/2017 7:43 PM CDT us Yeni Crespo NP LAB BLOOD ORDERABLES Final Result Performing Organization Address City/[facility]/ZIP Co de Phone Number [facility] [phone] [address] Department [place] [address] * ECG 12 lead (11/01/2017 6:31 PM CDT) Patient age 62 years [facility] Interpretation Text SINUS RHYTHMPOSSIBLE RIGHT VENTRICULAR CONDUCTION DELAYBORDERLINE ECGPREVIOUS TRACIN08/18/2017 15.17No significant change compared to prior ECG [facility] Comment:Physician Interprete r Dr. Ramon De M.D. Ventricular Rate EKG/Min 88 /min [facility] P Wave Duration [address] [facility] QRS-Interval (MSEC) [address] [facility] VA-Interval (MSEC) [address] [facility] QT Interval [address] [facility] QTc [address] [facility] QTC Interval ms [facility] P Burr 59 deg [facility] QRS Burr [address] [facility] T Burr 52 deg [facility] 11/01/2017 6:31 PM CDT us Yeni Crespo NP ECG ORDERABLES Deann l Result Performing Organization Address [facility]/ZIP Co de Phone Number [facility] * Urinalysis, microscopic only (11/01/2017 6:30 PM CDT) WBC, ur 0-5 0 - 5 /HPF [facility] RBC, ur 0-5 0 - 5 /HPF [facility] Urine 11/01/2017 6:30 PM CDT 11/01/2017 6:53 PM CDT Narrative [facility] - 11/01/2017 7:28 PM CDT Yeni Crespo NP LAB [place] [id number] [address] Department [place] [address] * (ABNORMAL) Urinalysis reflex to microscopic and culture Urine (11/01/2017 6:30 PM CDT) Color, ur Straw Yellow [facility] Clarity, ur Clear Clear [facility] Specific gravity, ur 1.026(H) 1.010 - 1.025 [facility] pH, urine 6.0 [facility] Protein, ur ql Negative Negative [facility] Glucose, ur ql 3+(A) Negative [facility] Ketones, ur Negative Negative [facility] Bilirubin, ur Negative Negative [facility] Blood, ur 2+(A) Negative [facility] Urobilinogen, ur <2.0 <2.0 mg/dL [facility] Nitrite, ur Negative Negative [facility] Leukocyte esterase, ur 1+(A) Negative [facility] Urine 11/01/2017 6:30 PM CDT 11/01/2017 6:53 PM CDT Narrative [facility] - 11/01/2017 7:28 PM CDT ?? Urine pH is affected by diet, medications, systemic acid-base disturbances, and renal tubular function. ??pH may affect urinary stone formation. ??For example, urine pH below 6.0 may help reduce the tendency for calcium phosphate stones and pH greater than 6.0 may reduce the tendency for uric acid stone formation. Source: [facility] [employer]. Last revised 05-04-2017 Yeni Crespo NP LAB MICROBIOLOGY - G ENERAL ORDERABLES Final Result MARY JANE ARNOLD [id number] [address] Department of [employer] [place] [address] * (ABNORMAL) POCT glucose (11/01/2017 5:59 PM CDT) Glucose, POC 439(H) 70 - 199 mg/dL [facility] J[facility] ARNOLD Blood specimen (specimen) 11/01/2017 5:59 PM CDT 11/01/2017 5:59 PM CDT Narrative MARY JANE ARNOLD - 11/01/2017 6:07 PM CDT us Notinfile Unknown LAB POCT ORDERABLES - DEVICE F inal Result MARY JANE ARNOLD [id number] [address] Department [place] [address] documented in this encounter Visit Diagnoses Diagnosis COPD exacerbation (HCC)- Primary Obstructive chronic bronchitis with exacerbation Chest pain, unspecified type Chronic midline low back pain without sciatica Uncontrolled type 2 diabetes mellitus with hyperglycemia, without long-term current use of insulin (HCC) Allergy to drug Other drug allergy documented in this encounter Administered Medications Inactive Administered Medications - up to 3 most recent administrations Medication Order MAR Action Action Date Dose Rate Site albuterol (PROVENTIL,VENTOLIN) 2.5 mg /3 mL (0.083 %) nebulizer solution 5 mg 5 mg, nebulization, Every 4 hours PRN (staff respiratory therapist), wheezing, shortness of breath, Starting on Valeri 11/02/17 at 0503, Indications: Acute Asthma Attack, Bronchospastic Pulmonary Disease, Chronic Obstructive Pulmonary DiseaseIndications:Acute Asthma Attack,Bronchospastic Pulmonary Disease,Chronic Obstructive Pulmonary Disease Given 11/03/2017 5:00 AM CDT 5 mg aspirin chewable tablet 324 mg 324 mg, oral, Once, On Valeri 11/02/17 at 0545, For 1 dose, Indications: Acute Coronary SyndromeIndications:Acute Coronary Syndrome Given 11/02/2017 7:00 AM CDT 324 mg cyclobenzaprine (FLEXERIL) tablet 5 mg 5 mg, oral, 3 times daily PRN, muscle spasms, Starting on Valeri 11/02/17 at 0722 Given 11/06/2017 1:49 PM CDT 5 mg Given 11/04/2017 11:03 AM CDT 5 mg Given 11/03/2017 4:01 PM CDT 5 mg dextrose 50% (concentrated solution) CONCENTRATED solution 25 g 25 g, intravenous, Every 15 min PRN, low blood sugar, blood glucose less than 70 mg/dL, Starting on Mon11/02/17 at 0517, If patient is NPO or unresponsive, give dextrose 50% IV Push over 2 minutes., Indications: HypoglycemiaIndications:Hypoglycemia dextrose oral liquid liquid 15 g 15 g, oral, Every 15 min PRN, low blood sugar, blood glucose less than 70 mg/dL, Starting on Mon11/02/17 at 0517, If patient is alert and able to eat/drink, give 15 gram glucose or one juice (4 fluid ounces) NOT ORANGE JUICE diphenhydrAMINE (BENADRYL) 50 mg/mL injection - ADS Override Pull Starting on Mon11/03/17 at 1333, For 1 dose, ALEX SEWELL: cabinet override diphenhydrAMINE (BENADRYL) capsule 50 mg 50 mg, oral, Once, On Mon11/03/17 at 2015, For 1 dose Given 11/03/2017 7:46 PM CDT 50 mg diphenhydrAMINE (BENADRYL) injection 50 mg 50 mg, intravenous, Once, On Mon11/03/17 at 1430, For 1 dose Given 11/03/2017 1:56 PM CDT 50 mg diphenhydrAMINE (BENADRYL) tab/cap 25 mg 25 mg, oral, 4 times daily PRN, itching, Starting on Mon11/02/17 at 0722 Given 11/04/2017 11:28 AM CDT 25 mg diphenhydrAMINE (BENADRYL) tab/cap 25 mg 25 mg, oral, Once, On Mon11/03/17 at 0415, For 1 dose Given 11/03/2017 3:34 AM CDT 25 mg exemestane (AROMASIN) tablet 25 mg 25 mg, oral, Daily, First dose (after last modification) on Mon11/02/17 at 0900 Given 11/06/2017 8:35 AM CDT 25 mg Given 11/05/2017 9:30 AM CDT 25 mg Given 11/04/2017 8:38 AM CDT 25 mg famotidine (PEPCID) injection 20 mg 20 mg, intravenous, Administer over 2 Minutes, Once, On Mon11/03/17 at 1430, For 1 dose, Administer at a rate of 10mg/min Given 11/03/2017 2:04 PM CDT 20 mg gabapentin (NEURONTIN) capsule 100 mg 100 mg, oral, 3 times daily, First dose (after last modification) on Mon11/02/17 at 0900 Given 11/06/2017 8:31 AM CDT 100 mg Given 11/05/2017 9:10 PM CDT 100 mg Given 11/05/2017 3:37 PM CDT 100 mg glucagon injection 1 mg 1 mg, intramuscular, Every 30 min PRN, low blood sugar, blood glucose less than 70 mg/dL, Starting on Mon11/02/17 at 0517, If patient has no IV access and not alert, given Glucagon IM then follow with either oral glucose or IV dextrose treatment., Indications: HypoglycemiaIndications:Hypoglycemia HYDROcodone-acetaminophen (NORCO) 5-325 mg per tablet 1 tablet 1 tablet, oral, Every 4 hours PRN, 1st line for pain, Starting on Mon11/02/17 at 0726, Indications: PainIndications:Pain Given 11/06/2017 1:48 PM CDT 1 tablet Given 11/06/2017 6:14 AM CDT 1 tablet Given 11/05/2017 11:18 PM CDT 1 tablet HYDROmorphone (DILAUDID) injection 1 mg 1 mg, intravenous, Once, On Mon11/01/17 at 2106, For 1 dose Given 11/01/2017 9:23 PM CDT 1 mg HYDROmorphone (DILAUDID) injection 1 mg 1 mg, intravenous, Once, On Mon11/01/17 at 2220, For 1 dose Given 11/01/2017 10:34 PM CDT 1 mg HYDROmorphone (DILAUDID) injection 1 mg 1 mg, intravenous, Once, On Mon11/02/17 at 0304, For 1 dose Given 11/02/2017 3:18 AM CDT 1 mg insulin glargine (LANTUS) injection 25 Units 25 Units, subcutaneous, 2 times daily, First dose (after last modification) on Mon11/04/17 at 2100, Do not mix with other insulins Given 11/04/2017 8:23 PM CDT 25 Units Left Lower Abdomen insulin glargine (LANTUS) injection 30 Units 30 Units, subcutaneous, 2 times daily, First dose (after last modification) on Mon11/03/17 at 0900, Do not mix with other insulins Given 11/04/2017 8:39 AM CDT 30 Units Right Lower Abdomen Given 11/03/2017 7:58 PM CDT 30 Units Le ft Lower Abdomen Given 11/03/2017 8:36 AM CDT 30 Units Le ft Lower Abdomen insulin glargine (LANTUS) injection 30 Units 30 Units, subcutaneous, 2 times daily, First dose (after last modification) on Mon11/05/17 at 0900, Do not mix with other insulins Given 11/06/2017 8:35 AM CDT 30 Units Right Upper Arm Given 11/05/2017 9:11 PM CDT 30 Units Le ft Upper Arm Given 11/05/2017 9:31 AM CDT 30 Units Ri ght Upper Arm insulin glargine (LANTUS) injection 40 Units 40 Units, subcutaneous, Nightly, First dose on Mon11/02/17 at 1815, Do not mix with other insulins Given 11/02/2017 6:47 PM CDT 40 Units Left Lower Abdomen insulin lispro (HumaLOG) injection 1-5 Units 1-5 Units, subcutaneous, 3 times daily with meals, First dose on Mon11/02/17 at 0800, Blood Sugar Mid Dose meal time - PO patients 139 or less No insulin 140 - 175 1 unit 176 - 200 2 unit 201 - 250 3 units 251 - 299 5 units Greater than 299 Call MD for hyperglycemia management instructions Do NOT hold for NPO status., Indications: Diabetes MellitusIndications:Diabetes Mellitus Given 11/02/2017 4:36 PM CDT 5 Units Left Upper Arm Given 11/02/2017 11:01 AM CDT 5 Units L eft Upper Arm Given 11/02/2017 7:02 AM CDT 3 Units Le ft Lower Abdomen insulin lispro (HumaLOG) injection 15 Units 15 Units, subcutaneous, 3 times daily with meals, First dose on Valeri 11/02/17 at 1815, Administer pre-meal doses when pts food tray arrives in room. Do not administer pre-meal doses to NPO patients. Given 11/03/2017 6:53 AM CDT 15 Units Left Lower Abdomen insulin lispro (HumaLOG) injection 15 Units 15 Units, subcutaneous, 3 times daily with meals, First dose (after last modification) on 11/05/17 at 1200, Administer pre-meal doses when pts food tray arrives in room. Do not administer pre-meal doses to NPO patients. Given 11/06/2017 1:49 PM CDT 15 Units Right Upper Arm Given 11/06/2017 7:03 AM CDT 15 Units Le ft Lower Abdomen Given 11/05/2017 12:42 PM CDT 15 Units R ight Upper Arm insulin lispro (HumaLOG) injection 18 Units 18 Units, subcutaneous, 3 times daily with meals, First dose (after last modification) on 11/04/17 at 1800, Administer pre-meal doses when pts food tray arrives in room. Do not administer pre-meal doses to NPO patients. Given 11/05/2017 6:35 AM CDT 18 Units Left Lower Abdomen Given 11/04/2017 5:14 PM CDT 18 Units Ri ght Upper Arm insulin lispro (HumaLOG) injection 2-10 Units 2-10 Units, subcutaneous, 5 times daily (with meals, nightly, and 0200), First dose (after last modification) on Valeri 11/02/17 at 2100, Blood Sugar Mid Dose meal time - PO patients 150 or less No insulin 151 - 200 2 unit 201 - 250 4 units 251 - 300 6 units 301- 350 8 units Greater than 351 give 10 units and Call MD for hyperglycemia management instructions Do NOT hold for NPO status., Indications: Diabetes MellitusIndications:Diabetes Mellitus Given 11/02/2017 9:11 PM CDT 10 Units Left Lower Abdomen Given 11/02/2017 8:25 PM CDT 10 Units Le ft Lower Abdomen insulin lispro (HumaLOG) injection 2-10 Units 2-10 Units, subcutaneous, 5 times daily (with meals, nightly, and 0200), First dose (after last modification) on 11/04/17 at 1800, Blood Sugar Mid Dose meal time - PO patients 150 or less No insulin 151 - 200 2 unit 201 - 250 4 units 251 - 300 6 units 301- 350 8 units Greater than 351 give 10 units and Call MD for hyperglycemia management instructions Do NOT hold for NPO status., Indications: Diabetes MellitusIndications:Diabetes Mellitus Given 11/05/2017 6:34 AM CDT 2 Units Left Lower Abdomen Given 11/05/2017 2:15 AM CDT 8 Units Le ft Upper Abdomen Given 11/04/2017 8:22 PM CDT 6 Units Le ft Lower Abdomen insulin lispro (HumaLOG) injection 2-16 Units 2-16 Units, subcutaneous, 5 times daily (with meals, nightly, and 0200), First dose (after last modification) on Mon11/03/17 at 1200, Blood Sugar Mid Dose meal time - PO patients 150 or less No insulin 151 - 200 2 unit 201 - 250 4 units 251 - 300 8 units 301- 350 12 units Greater than 351 give 16 units and Call MD for hyperglycemia management instructions Do NOT hold for NPO status., Indications: Diabetes MellitusIndications:Diabetes Mellitus Given 11/03/2017 5:05 PM CDT 16 Units Left Lower Abdomen Given 11/03/2017 12:15 PM CDT 2 Units R ight Lower Abdomen insulin lispro (HumaLOG) injection 20 Units 20 Units, subcutaneous, 3 times daily with meals, First dose (after last modification) on Mon11/03/17 at 1200, Administer pre-meal doses when pts food tray arrives in room. Do not administer pre-meal doses to NPO patients. Given 11/04/2017 6:34 AM CDT 20 Units Left Lower Abdomen Given 11/03/2017 5:05 PM CDT 20 Units Le ft Lower Abdomen Given 11/03/2017 12:11 PM CDT 20 Units R ight Lower Abdomen insulin lispro (HumaLOG) injection 25 Units 25 Units, subcutaneous, 3 times daily with meals, First dose (after last modification) on Mon11/04/17 at 1200, Administer pre-meal doses when pts food tray arrives in room. Do not administer pre-meal doses to NPO patients. Given 11/04/2017 12:23 PM CDT 25 Units Right Upper Arm insulin lispro (HumaLOG) injection 3-12 Units 3-12 Units, subcutaneous, 5 times daily (with meals, nightly, and 0200), First dose (after last modification) on Mon11/05/17 at 1200, Blood Sugar Mid Dose meal time - PO patients 150 or less No insulin 151 - 200 3 unit 201 - 250 5 units 251 - 300 7 units 301- 350 9 units Greater than 351 give 12 units and Call MD for hyperglycemia management instructions Do NOT hold for NPO status., Indications: Diabetes MellitusIndications:Diabetes Mellitus Given 11/06/2017 7:04 AM CDT 3 Units Left Lower Abdomen Given 11/06/2017 2:20 AM CDT 5 Units Le ft Upper Abdomen Given 11/05/2017 9:13 PM CDT 7 Units Ri ght Upper Arm insulin lispro (HumaLOG) injection 4-20 Units 4-20 Units, subcutaneous, 5 times daily (with meals, nightly, and 0200), First dose (after last modification) on Mon11/03/17 at 0200, Blood Sugar Mid Dose meal time - PO patients 150 or less No insulin 151 - 200 4 unit 201 - 250 8 units 251 - 300 12 units 301- 350 16 units Greater than 351 give 20 units and Call MD for hyperglycemia management instructions Do NOT hold for NPO status., Indications: Diabetes MellitusIndications:Diabetes Mellitus Given 11/03/2017 6:09 AM CDT 16 Units Left Lower Abdomen Given 11/03/2017 2:05 AM CDT 20 Units Le ft Lower Abdomen insulin lispro (HumaLOG) injection 4-20 Units 4-20 Units, subcutaneous, 5 times daily (with meals, nightly, and 0200), First dose (after last modification) on Mon11/03/17 at 2100, Blood Sugar Mid Dose meal time - PO patients 150 or less No insulin 151 - 200 4 unit 201 - 250 8 units 251 - 300 12 units 301- 350 16 units Greater than 351 give 20 units and Call MD for hyperglycemia management instructions Do NOT hold for NPO status., Indications: Diabetes MellitusIndications:Diabetes Mellitus Given 11/04/2017 6:34 AM CDT 12 Units Left Lower Abdomen Given 11/04/2017 1:29 AM CDT 20 Units Le ft Lower Abdomen Given 11/03/2017 7:58 PM CDT 20 Units Le ft Lower Abdomen insulin NPH (HumuLIN N, NovoLIN N) injection 10 Units 10 Units, subcutaneous, Every 12 hours, First dose (after last modification) on Mon11/02/17 at 1800, With solumedrol Given 11/02/2017 4:40 PM CDT 10 Units Left Upper Arm insulin NPH (HumuLIN N, NovoLIN N) injection 15 Units 15 Units, subcutaneous, Every 12 hours, First dose (after last modification) on Mon11/03/17 at 0600, With solumedrol Given 11/02/2017 5:13 PM CDT 5 Units Left Lower Abdomen insulin NPH (HumuLIN N, NovoLIN N) injection 20 Units 20 Units, subcutaneous, Once, On Mon11/03/17 at 2045, For 1 dose Given 11/03/2017 8:57 PM CDT 20 Units Left Lower Abdomen insulin regular (HumuLIN R, NovoLIN R) injection 2 Units 2 Units, subcutaneous, Once, On Valeri 11/02/17 at 0355, For 1 dose Given 11/02/2017 3:59 AM CDT 2 Units Left Lower Abdomen ioversol (OPTIRAY 350) syringe syringe 100 mL 100 mL, intravenous, Once in imaging, contrast, Starting on Mon11/01/17 at 2310, For 1 dose Given 11/01/2017 11:18 PM CDT 93 mL lisinopril (PRINIVIL,ZESTRIL) tablet 20 mg 20 mg, oral, Daily, First dose (after last modification) on Valeri 11/02/17 at 0900 Given 11/06/2017 8:32 AM CDT 20 mg Given 11/05/2017 9:30 AM CDT 20 mg Given 11/04/2017 8:39 AM CDT 20 mg LORazepam (ATIVAN) injection 0.5 mg 0.5 mg, intravenous, Every 4 hours PRN, anxiety, Starting on 11/04/17 at 1221 Given 11/04/2017 1:41 PM CDT 0.5 mg LORazepam (ATIVAN) tablet 0.5 mg 0.5 mg, oral, Once, On Mon11/03/17 at 2015, For 1 dose Given 11/03/2017 7:46 PM CDT 0.5 mg LORazepam (ATIVAN) tablet 0.5 mg 0.5 mg, oral, Every 4 hours PRN, anxiety, Starting on 11/04/17 at 2012 Given 11/06/2017 1:48 PM CDT 0.5 mg Given 11/06/2017 6:14 AM CDT 0.5 mg Given 11/05/2017 11:39 PM CDT 0.5 mg metFORMIN (GLUCOPHAGE) tablet 1,000 mg 1,000 mg, oral, 2 times daily with meals (bkfst, dinner), First dose on Mon11/05/17 at 0830, Take with food Given 11/06/2017 8:31 AM CDT 1,000 mg Given 11/05/2017 9:30 AM CDT 1,000 mg methylPREDNISolone sodium succinate (SOLU-medrol) preservative free injection 125 mg 125 mg, intravenous, Administer over 30 Minutes, Once, On Mon11/03/17 at 1430, For 1 dose Given 11/03/2017 2:04 PM CDT 125 mg methylPREDNISolone sodium succinate (SOLU-medrol) preservative free injection 40 mg 40 mg, intravenous, Every 12 hours, First dose on Mon11/02/17 at 0600, Indications: SOBIndications:SOB Given 11/02/2017 4:34 PM CDT 40 mg Given 11/02/2017 7:02 AM CDT 40 mg ondansetron (ZOFRAN) injection 4 mg 4 mg, intravenous, Once, On Mon11/01/17 at 1954, For 1 dose Given 11/01/2017 7:58 PM CDT 4 mg ondansetron ODT (ZOFRAN-ODT) disintegrating tablet 4 mg 4 mg, oral, Every 6 hours PRN, nausea, vomiting, Starting on Mon11/04/17 at 1330 oxybutynin XL (DITROPAN-XL) extended release tablet 5 mg 5 mg, oral, Daily, First dose (after last modification) on Mon11/02/17 at 0900, Do not crush or chew Given 11/06/2017 8:31 AM CDT 5 mg Given 11/05/2017 9:30 AM CDT 5 mg Given 11/04/2017 8:39 AM CDT 5 mg prochlorperazine (COMPAZINE) injection 5 mg 5 mg, intravenous, Once, On Mon11/01/17 at 2118, For 1 dose Given 11/01/2017 9:26 PM CDT 5 mg prochlorperazine (COMPAZINE) injection 5 mg 5 mg, intravenous, Every 6 hours PRN, nausea, vomiting, Starting on Mon11/02/17 at 0727 Given 11/04/2017 11:28 AM CDT 5 mg racepinephrine (ASTHMANEFRIN) 2.25 % nebulizer solution - ADS Override Pull Starting on Mon11/03/17 at 1334, For 1 dose, PRIYA ROMERO: cabinet override racepinephrine (ASTHMANEFRIN) 2.25 % nebulizer solution 0.5 mL 0.5 mL, nebulization, Once, On Mon11/03/17 at 1415, For 1 dose Given 11/03/2017 1:42 PM CDT 0.5 mL rivaroxaban (XARELTO) tablet 20 mg 20 mg, oral, Daily with dinner, First dose on Mon11/02/17 at 1800, Administer doses greater than or equal to 15 mg/day with food; doses of 10 mg/day may be administered without regard to meals. 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Indications:Prevention of Recurrent Venous Thrombosis in Malignancy Given 11/05/2017 5:36 PM CDT 20 mg Given 11/04/2017 5:22 PM CDT 20 mg Given 11/03/2017 5:02 PM CDT 20 mg rOPINIRole (REQUIP) tablet 5 mg 5 mg, oral, Nightly, First dose (after last modification) on Mon11/02/17 at 2100 Given 11/05/2017 9:10 PM CDT 5 mg Given 11/04/2017 8:15 PM CDT 5 mg Given 11/03/2017 7:46 PM CDT 5 mg SITagliptin (JANUVIA) tablet 100 mg 100 mg, oral, Daily, First dose on Mon11/05/17 at 0900, Indications: type 2 diabetes mellitusIndications:type 2 diabetes mellitus Given 11/06/2017 8:31 AM CDT 100 mg Given 11/05/2017 9:30 AM CDT 100 mg sodium chloride 0.9% bolus 1,000 mL 1,000 mL, intravenous, at 1,000 mL/hr, Administer over 1 Hours, Once, On Mon11/01/17 at 1949, For 1 dose New Bag 11/01/2017 7:52 PM CDT 1,000 mL 1000 mL/hr sodium chloride 0.9% infusion 75 mL/hr, intravenous, Continuous, Starting on Mon11/02/17 at 0600 Restarted 11/05/2017 3:11 AM CDT 75 mL/hr 75 mL/hr New Bag 11/04/2017 10:58 AM CDT 75 mL/hr 75 mL/hr New Bag 11/03/2017 8:59 PM CDT 75 mL/hr 75 mL/hr traZODone (DESYREL) tablet 50 mg 50 mg, oral, Once, On Mon11/03/17 at 1200, For 1 dose, Indications: insomniaIndications:insomnia Given 11/03/2017 12:18 PM CDT 50 mg documented in this encounter Discontinued Medications Medication Sig Discontinue Reason Start Date End Da te sitaGLIPtin-metformin (JANUMET) 50-1,000 mg per tablet Take 1 tablet by mouth daily. Stop Taking at Discharge 11/06/2017 glimepiride (AMARYL) 2 mg tabletIndications:type 2 diabetes mellitus Take 1 tablet (2 mg total) by mouth daily before breakfast. Stop Taking at Discharge 10/31/2017 11/06/2017 documented as of this encounter Active and Recently Administered Medications Times are shown in CDT. Scheduled Medication Order 11/04/2017 11/05/2017 11/06/2017 exemestane (AROMASIN) tablet 25 mg 25 mg, oral, Daily, First dose (after last modification) on [place] 11/02/17 at 0900 0838 (Given - Provider: Alex Sewell RN) 0930 (Given - Provider: Alex Sewell RN) 0835 (Given - Provider: Julissa Gaines RN) fluticasone (FLONASE) 50 mcg/actuation nasal spray 1 spray 1 spray, each nostril, 2 times daily, First dose (after last modification) on [place] 11/02/17 at 0900 0838 (Not Given - Provider: Alex Sewell RN - Reason: Patient/family refused)2014 (Hold - Provider: Sara Gipson RN - Reason: Order parameters not met) 09 (Not Given - Provider: Alex Sewell RN - Reason: Patient/family refused)211 (Not Given - Provider: Ruth Poole RN - Reason: Patient/family refused) 0835 (Not Given - Provider: Julissa Gaines RN - Reason: Patient/family refused) gabapentin (NEURONTIN) capsule 100 mg 100 mg, oral, 3 times daily, First dose (after last modification) on [place] 11/02/17 at 0900 0839 (Given - Provider: Alex Sewell RN)1638 (Given - Provider: Alex Sewell RN)2014 (Given - Provider: Sara Gipson RN) 0930 (Given - Provider: Alex Sewell RN)1537 (Given - Provider: Alex Sewell RN)2110 (Given - Provider: Ruth Poole, NURIS) 0831 (Given - Provider: Julissa Gaines, NURIS)1600 (Due) insulin glargine (LANTUS) injection 25 Units (CANCELED) 25 Units, subcutaneous, 2 times daily, First dose (after last modification) on 11/04/17 at 2100, Do not mix with other insulins 2022 (Given - Provider: Sara Gipson RN) insulin glargine (LANTUS) injection 30 Units (CANCELED) 30 Units, subcutaneous, 2 times daily, First dose (after last modification) on Mon11/03/17 at 0900, Do not mix with other insulins 0839 (Given - Provider: Alex Sewell RN) insulin glargine (LANTUS) injection 30 Units 30 Units, subcutaneous, 2 times daily, First dose (after last modification) on 11/05/17 at 0900, Do not mix with other insulins 0931 (Given - Provider: Alex Sewell RN)211 (Given - Provider: Ruth Poole, NURIS) 0835 (Given - Provider: Julissa Gaines, NURIS) insulin lispro (HumaLOG) injection 15 Units 15 Units, subcutaneous, 3 times daily with meals, First dose (after last modification) on 11/05/17 at 1200, Administer pre-meal doses when pts food tray arrives in room. Do not administer pre-meal doses to NPO patients. 1242 (Given - Provider: Alex Sewell RN)1737 (Not Given - Provider: Alex Sewell RN - Reason: Patient/family refused - Comment: refused meal) 0703 (Given - Provider: Ruth Poole, NURIS)1349 (Given - Provider: Julissa Gaines, NURIS) insulin lispro (HumaLOG) injection 18 Units (CANCELED) 18 Units, subcutaneous, 3 times daily with meals, First dose (after last modification) on 11/04/17 at 1800, Administer pre-meal doses when pts food tray arrives in room. Do not administer pre-meal doses to NPO patients. 1714 (Given - Provider: Alex Sewell RN) 0635 (Given - Provider: Sara Gipson RN) insulin lispro (HumaLOG) injection 2-10 Units (CANCELED) 2-10 Units, subcutaneous, 5 times daily (with meals, nightly, and 0200), First dose (after last modification) on Mon11/04/17 at 1800, Blood Sugar Mid Dose meal time - PO patients 150 or less No insulin 151 - 200 2 unit 201 - 250 4 units 251 - 300 6 units 301- 350 8 units Greater than 351 give 10 units and Call MD for hyperglycemia management instructions Do NOT hold for NPO status., Indications: Diabetes Mellitus 1714 (Given - Provider: Alex Sewell RN)2021 (Given - Provider: Sara Gipson RN) 0215 (Given - Provider: Saar Gipson RN)0634 (Given - Provider: Sara Gipson RN) insulin lispro (HumaLOG) injection 20 Units (CANCELED) 20 Units, subcutaneous, 3 times daily with meals, First dose (after last modification) on Mon11/03/17 at 1200, Administer pre-meal doses when pts food tray arrives in room. Do not administer pre-meal doses to NPO patients. 0634 (Given - Provider: Sara Gipson RN) insulin lispro (HumaLOG) injection 25 Units (CANCELED) 25 Units, subcutaneous, 3 times daily with meals, First dose (after last modification) on Mon11/04/17 at 1200, Administer pre-meal doses when pts food tray arrives in room. Do not administer pre-meal doses to NPO patients. 1223 (Given - Provider: Alex Sewell RN) insulin lispro (HumaLOG) injection 3-12 Units 3-12 Units, subcutaneous, 5 times daily (with meals, nightly, and 0200), First dose (after last modification) on Mon11/05/17 at 1200, Blood Sugar Mid Dose meal time - PO patients 150 or less No insulin 151 - 200 3 unit 201 - 250 5 units 251 - 300 7 units 301- 350 9 units Greater than 351 give 12 units and Call MD for hyperglycemia management instructions Do NOT hold for NPO status., Indications: Diabetes Mellitus 1243 (Given - Provider: Alex Sewell RN)1737 (Not Given - Provider: Alex Sewell RN - Reason: Other - Comment: refused meal)2113 (Given - Provider: Ruht Poole RN) 0220 (Given - Provider: Ruth Poole, RN)0704 (Given - Provider: Ruth Poole RN)1349 (Not Given - Provider: Julissa Gaines RN - Reason: Contraindicated) insulin lispro (HumaLOG) injection 4-20 Units (CANCELED) 4-20 Units, subcutaneous, 5 times daily (with meals, nightly, and 0200), First dose (after last modification) on Mon11/03/17 at 2100, Blood Sugar Mid Dose meal time - PO patients 150 or less No insulin 151 - 200 4 unit 201 - 250 8 units 251 - 300 12 units 301- 350 16 units Greater than 351 give 20 units and Call MD for hyperglycemia management instructions Do NOT hold for NPO status., Indications: Diabetes Mellitus 0129 (Given - Provider: Sara Gipson RN)0634 (Given - Provider: Sara Gpison RN)1220 (Not Given - Provider: Alex Sewell RN - Reason: Order parameters not met) lisinopril (PRINIVIL,ZESTRIL) tablet 20 mg 20 mg, oral, Daily, First dose (after last modification) on [place] 11/02/17 at 0900 0839 (Given - Provider: Alex Sewell RN) 0930 (Given - Provider: Alex Sewell RN) 0832 (Given - Provider: Julissa Gaines, NURIS) metFORMIN (GLUCOPHAGE) tablet 1,000 mg (CANCELED) 1,000 mg, oral, 2 times daily with meals (bkfst, dinner), First dose on Mon11/05/17 at 0830, Take with food 0930 (Given - Provider: Alex Sewell RN)1738 (Not Given - Provider: Alex Sewell RN - Reason: Patient/family refused - Comment: refused meal) 0831 (Given - Provider: Julissa Gaines, NURIS) oxybutynin XL (DITROPAN-XL) extended release tablet 5 mg 5 mg, oral, Daily, First dose (after last modification) on [facility] 11/02/17 at 0900, Do not crush or chew 0839 (Given - Provider: Alex Sewell RN) 0930 (Given - Provider: Alex Sewell RN) 0831 (Given - Provider: Julissa Gaines, NURIS) polyethylene glycol (MIRALAX) packet 17 g 17 g, oral, Daily, First dose (after last modification) on [facility] 11/02/17 at 0900, Dissolve in 8 ounces of fluid 0838 (Not Given - Provider: Alex Sewell RN - Reason: Patient/family refused) 0911 (Not Given - Provider: Alex Sewell RN - Reason: Patient/family refused) 0832 (Not Given - Provider: Julissa Gaines RN - Reason: Patient/family refused) rivaroxaban (XARELTO) tablet 20 mg 20 mg, oral, Daily with dinner, First dose on [facility] 11/02/17 at 1800, Administer doses greater than or equal to 15 mg/day with food; doses of 10 mg/day may be administered without regard to meals. 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 172 (Given - Provider: Alex Sewell RN) 1736 (Given - Provider: Alex Sewell RN) rOPINIRole (REQUIP) tablet 5 mg 5 mg, oral, Nightly, First dose (after last modification) on [facility] 11/02/17 at 2100 2014 (Given - Provider: Sara Gipson, NURIS) 211 (Given - Provider: Ruth Poole, NURIS) SITagliptin (JANUVIA) tablet 100 mg (CANCELED) 100 mg, oral, Daily, First dose on [place] 11/05/17 at 0900, Indications: type 2 diabetes mellitus 0930 (Given - Provider: Alex Sewell RN) 0831 (Given - Provider: Julissa Gaines, NURIS) Continuous Medication Order 11/04/2017 11/05/2017 11/06/2017 sodium chloride 0.9% infusion (CANCELED) 75 mL/hr, intravenous, Continuous, Starting on [place] 11/02/17 at 0600 1058 (New Bag - Provider: Alex Sewell RN) 0311 (Restarted - Provider: Sara Gipson RN) PRN Medication Order 11/04/2017 11/05/2017 11/06/2017 albuterol (PROVENTIL,VENTOLIN) 2.5 mg /3 mL (0.083 %) nebulizer solution 5 mg 5 mg, nebulization, Every 4 hours PRN (staff respiratory therapist), wheezing, shortness of breath, Starting on [place] 11/02/17 at 0503, Indications: Acute Asthma Attack, Bronchospastic Pulmonary Disease, Chronic Obstructive Pulmonary Disease albuterol HFA (PROVENTIL HFA,VENTOLIN HFA,PROAIR HFA) 90 mcg/actuation inhaler 2 puff 2 puff, inhalation, Every 4 hours PRN (staff respiratory therapist), wheezing, Starting on [place] 11/02/17 at 0722, Indications: Bronchospasm Prevention cyclobenzaprine (FLEXERIL) tablet 5 mg 5 mg, oral, 3 times daily PRN, muscle spasms, Starting on [place] 11/02/17 at 0722 1103 (Given - Provider: Alex Sewell RN) 1349 (Given - Provider: Julissa Gaines RN) dextrose 50% (concentrated solution) CONCENTRATED solution 25 g 25 g, intravenous, Every 15 min PRN, low blood sugar, blood glucose less than 70 mg/dL, Starting on [place] 11/02/17 at 0517, If patient is NPO or unresponsive, give dextrose 50% IV Push over 2 minutes., Indications: Hypoglycemia dextrose 50% (concentrated solution) CONCENTRATED solution 25 g 25 g, intravenous, Every 15 min PRN, low blood sugar, blood glucose less than 70 mg/dL, Starting on [place] 11/02/17 at 0722, If patient is NPO or unresponsive, give dextrose 50% IV Push over 2 minutes., Indications: Hypoglycemia dextrose oral liquid liquid 15 g 15 g, oral, Every 15 min PRN, low blood sugar, blood glucose less than 70 mg/dL, Starting on [facility] 18 at 0517, If patient is alert and able to eat/drink, give 15 gram glucose or one juice (4 fluid ounces) NOT ORANGE JUICE 1445 (Not Given - Provider: Alex Sewell RN - Reason: Patient/family refused - Comment: Patient given juice will re-check blood sugar) diphenhydrAMINE (BENADRYL) tab/cap 25 mg 25 mg, oral, 4 times daily PRN, itching, Starting on [place] 11/02/17 at 0722 1128 (Given - Provider: Alex Sewell RN) glucagon injection 1 mg 1 mg, intramuscular, Every 30 min PRN, low blood sugar, blood glucose less than 70 mg/dL, Starting on [place] 11/02/17 at 0517, If patient has no IV access and not alert, given Glucagon IM then follow with either oral glucose or IV dextrose treatment., Indications: Hypoglycemia HYDROcodone-acetaminophen (NORCO) 5-325 mg per tablet 1 tablet 1 tablet, oral, Every 4 hours PRN, 1st line for pain, Starting on [place] 11/02/17 at 0726, Indications: Pain 0126 (Given - Provider: Sara Gipson RN)1102 (Given - Provider: Alex Sewell RN)2015 (Given - Provider: Sara Gipson RN) 0011 (Given - Provider: Sara Gipson RN)0439 (Given - Provider: Sara Gipson RN)1537 (Return to Cabinet - Provider: Alex Sewell RN)1836 (Given - Provider: Alex Sewell RN)2318 (Given - Provider: Ruth Poole RN) 0614 (Given - Provider: Ruth Poole RN)1348 (Given - Provider: Julissa Gaines RN) LORazepam (ATIVAN) injection 0.5 mg (CANCELED) 0.5 mg, intravenous, Every 4 hours PRN, anxiety, Starting on 11/04/17 at 1221 1341 (Given - Provider: Alex Sewell RN)2013 (Hold - Provider: Sara Gipson RN - Reason: Other - Comment: loss IV access) LORazepam (ATIVAN) tablet 0.5 mg 0.5 mg, oral, Every 4 hours PRN, anxiety, Starting on 11/04/17 at 2012 2000 (Given - Provider: Sara Gipson, NURIS) 0011 (Given - Provider: Sara Gipson RN)0439 (Given - Provider: Sara Gipson RN)0935 (Given - Provider: Alex Sewell, NURIS)2339 (Given - Provider: Ruth Poole, RN) 0614 (Given - Provider: Ruth Poole RN)1348 (Given - Provider: Julissa Gaines RN) nitroglycerin (NITROSTAT) sublingual tablet 0.4 mg 0.4 mg, sublingual, Every 5 min PRN, chest pain, Starting on [place] 11/02/17 at 0503, For 3 doses, Notify MD and obtain EKG if no relief after 3 doses or angina recurs. HOLD and notify MD if SBP less than 90 mmHg., Indications: Angina ondansetron ODT (ZOFRAN-ODT) disintegrating tablet 4 mg 4 mg, oral, Every 6 hours PRN, nausea, vomiting, Starting on 11/04/17 at 1330 prochlorperazine (COMPAZINE) injection 5 mg 5 mg, intravenous, Every 6 hours PRN, nausea, vomiting, Starting on [place] 11/02/17 at 0727 1128 (Given - Provider: Alex Sewell RN) documented in this encounter Orders Medications Ordered That Tyler ht Not Have Been Administered Count Last Ordered Date First Ordered Date insulin lispro (HumaLOG) inj ection 18 Units 2 11/05/2017 11/04/2017 insulin lispro (HumaLOG) inj ection 20 Units 2 11/05/2017 11/04/2017 ondansetron ODT (ZOFRAN-ODT) disintegrating tablet 4 mg 1 11/04/2017 traZODone (DESYREL) tablet 50 mg 1 11/04/19 18 albuterol HFA (PROVENTIL HFA ,VENTOLIN HFA,PROAIR HFA) 90 mcg/actuation inhaler 2 puff 1 11/02/2017 dextrose 50% (concentrated s olution) CONCENTRATED solution 25 g 3 11/02/2017 dextrose oral liquid liquid 15 g 2 11/03/19 18 enoxaparin (LOVENOX) syringe 40 mg 1 2017 fluticasone (FLONASE) 50 mcg /actuation nasal spray 1 spray 1 11/02/2017 glucagon injection 1 mg 2 11/02/2017 insulin lispro (HumaLOG) inj ection 1-3 Units 1 11/02/2017 insulin NPH (HumuLIN N, Mindi MIKE N) injection 5 Units 1 11/02/2017 nitroglycerin (NITROSTAT) parrish blingual tablet 0.4 mg 1 11/02/2017 ondansetron (ZOFRAN) injection 4 mg 2 11/0211/01/2017 polyethylene glycol (MIRALAX) packet 17 g 1 11/02/2017 sodium chloride 0.9% infusion 1 11/02/2017 Lab Orders Without Results Count Last Ordered D ate First Ordered Date POCT GLUCOSE DEVICE 39 11/05/2017 11/02/19 18 Nursing Count Last Ordered Date First Orde red Date CARDIAC OUTPUT MONITORING 1 11/01/2017 VITAL SIGNS 2 11/01/2017 Consult Count Last Ordered Date First Orde red Date IP CONSULT TO CARDIOLOGY 1 11/02/2017 IP CONSULT TO ENDOCRINOLOGY 1 11/02/2017 IV Count Last Ordered Date First Orde red Date SALINE LOCK IV 1 11/01/2017 Admission Count Last Ordered Date First Orde red Date ASSIGN PATIENT STATUS 1 11/02/2017 ADT Patient Update Count Last Ordered Date Firs t Ordered Date ED IP DECISION TO ADMIT 1 11/02/2017 documented in this encounter Care Teams Configuration Management Administrator Relationship Specialty Start Date End Date Justen Gale MD [address] [facility] [address] [place] [address] PCP - General 10/09/17 Liu Jerez MD Consulting Physician Gastroenterology 07/28/17 [place] [id number] [facility] [address] [place] [address] Consulting Physician Pulmonary Disease 08/03/17 Khris Arthur MD [id number] [facility] [address] [place] [address] Medical Oncologist/Superintendent [facility] Medical Oncology 10/23/17 [place] [id number] [facility] [address] [place] [address] Surgeon Orthopedic Surgery 10/23/17 [place] [id number] [facility] [address] [place] [address] Consulting Physician Pain Management 10/23/17 documented as of this encounter
--- OUTSIDE RECORDS SUMMARY | 2024-04-26 04:27 | XMS_ITS | Encounter Summary ---
Author Organization [facility] Healthcare Address [address] [place] [address] Care Team Providers Care Contact Lens Edge Buffer Name Role Phone Liu Jerez MD Unavailable Albert Corbin MD Unavailable Justen Gale MD Primary Care Provider Khris Arthur MD Unavailable [phone] Ko Melendez MD Unavailable [phone] John Paul Moyer MD Unavailable Reason for Visit * Reason Comments Back Pain Encounter Details Date Type Department Care Team (Late st Contact Info) Description 11/19/2017 10:25 PM CDT - 11/20/2017 2:30 AM CDT Emergency [facility] Emergency Department [address] [place] [address] [place] [address] [facility] [address] [place] [address] Chronic left-sided low back pain with sciatica, sciatica laterality unspecified (Primary Dx) Discharge Disposition: Discharge to home [...] on file Legal Sex Female 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 Gender Identity Not on file Sexual Orientation Not on file documented as of this encounter Last Filed Vital Signs Vital Sign Reading Time Taken Comments Blood Pressure 118/80 11/20/2017 2:18 AM CDT Pulse 84 11/20/2017 2:18 AM CDT Temperature 36.6 ??C (97.9 ??F) 11/19/2017 10:14 PM C DT Respiratory Rate 18 11/20/2017 2:18 AM CDT Oxygen Saturation 97% 11/20/2017 2:18 AM CDT Inhaled Oxygen Concentration - - Weight 124.7 kg (275 lb) 11/19/2017 10:14 PM CDT Height 154.9 cm (5' 1 ) 11/19/2017 10:14 PM CDT Body Mass Index 51.96 11/19/2017 10:14 PM CDT documented in this encounter Discharge Instructions * Discharge Instructions* Karlos Lim MD - 11/20/2017 2:10 AM CDT Take your medications regularly. Call your pain doctor for follow-up * Attachments The following attachments cannot be sent through Care Everywhere. * Sciatica (Belarusian) documented in this encounter Medications at Time of Discharge albuterol HFA (PROVENTIL HFA) 90 mcg/actuation inhaler Inhale 2 puffs. 08/15/2017 8 baclofen (LIORESAL) 10 mg tablet TAKE 0.5-1 TAB EVERY 12 HOURS NEEDED FOR MUSCLE CRAMPING/SPASM S 05/31/2017 8 blood glucose diagnostic (ADVANCED GLUC METER TEST STRIP) strip Use as directed 11/09/2017 8 ciprofloxacin (CIPRO) 500 mg tablet TK 1 T PO BID FOR 5 DAYS 0 10/18/2017 8 cyclobenzaprine (FLEXERIL) 5 mg tablet TK 1 T PO TID FOR 14 DAYS 0 11/16/2017 8 exemestane (AROMASIN) 25 mg tablet Take 25 mg by mouth daily. After a meal 8 exemestane (AROMASIN) 25 mg tablet TAKE 1 TABLET BY MOUTH DAILY AFTER A MEAL 08/09/2016 8 furosemide (LASIX) 40 mg tablet Take 40 mg by mouth daily. 8 furosemide (LASIX) 40 mg tablet Take 40 mg by mouth. 11/09/2017 8 gabapentin (NEURONTIN) 300 mg capsule TAKE 2 CAPSULE 3 TIMES DAILY 05/31/2017 8 glimepiride (AMARYL) 1 mg tabletIndications:ty pe 2 diabetes mellitus TK 1 T PO QAM 3 10/17/2017 8 guaiFENesin-codeine (GUAITUSS AC) liquid 100-10 mg/5 mL Take 5 mL by mouth. 08/13/2017 8 HYDROcodone-acetamin ophen (NORCO) 5-325 mg per tablet Take 1 tablet by mouth every 8 (eight) hours as needed for pain. 20 tablet 10/31/2017 8 HYDROcodone-acetamin ophen (NORCO) 5-325 mg per tabletIndications:Pa in Take 1 tablet by mouth every 30 minutes as needed. 09/14/2017 8 insulin glargine (LANTUS) 100 unit/mL injection Inject 30 Units under the skin 2 (two) times a day. 10 mL 11/06/2017 8 insulin lispro (HumaLOG) 100 unit/mL injection Inject 15 Units under the skin 3 (three) times a day with meals. 10 mL 11/14/2017 8 insulin lispro (HumaLOG) 100 unit/mL injection Inject under the skin. 11/14/2017 8 LANCETS MISC Use as directed 11/09/2017 8 lisinopril (PRINIVIL,ZESTRIL) 20 mg tablet take 1 Tablet (20MG) by oral route every day 0 05/11/2012 8 lisinopril (PRINIVIL,ZESTRIL) 20 mg tablet Take 20 mg by mouth. 05/11/2012 2 LYRICA 75 mg capsule 0 09/15/2017 10/0 8 ondansetron ODT (ZOFRAN-ODT) 4 mg disintegrating tablet Take 4 mg by mouth. 08/28/2017 8 ONETOUCH DELICA LANCETS 33 gauge misc TEST UTD 0 11/09/2017 8 oxybutynin (DITROPAN) 5 mg tablet take [...] daily. 08/15/2017 8 rivaroxaban (XARELTO) 20 mg tabletIndications:Ot her pulmonary embolism without acute cor pulmonale, unspecified chronicity (HCC) Take 1 tablet (20 mg total) by mouth daily after dinner. 30 tablet 1 11/13/2017 8 rivaroxaban (XARELTO) 20 mg tablet Take 20 mg by mouth. 08/08/2017 8 rOPINIRole (REQUIP) 5 mg tablet take 1 tablet (5MG) by oral route every day at bedtime 0 05/11/2012 8 documented as of this encounter Discharge Disposition Disposition Code Departure Means Destination Discharge to home or self care documented in this encounter ED Notes * Karlos Lim MD - 11/19/2017 10:36 PM CDT HPI Chief Complaint Patient presents with ??? Back Pain 10:35 PM 11/19/2017 62 y/o female with a h/o HTN, DM, CHF, thyroid disease, PE and DVT (on Xarelto), osteoarthritis,andneuropathy presents to the ED c/o left sided lower back pain radiating down the left leg onset thisevening. Pt states that she has been having back issues all month. She states that she was seen by Dr. Melendez and was referred to roller painter Dr. Moyer. Pt reports receiving an injection in her back earlier this month which triggered her to have elevated blood sugars which she has been hospitalized recently for. Her blood sugar is now under control, but pt states she is still dealing with the back pain. Pt reports the pain is exacerbated by any movement; specifically walking and b earing weight on her left leg. She states that she has been taking her [place] every 6 hours without any relief. Pt states that she is unable to get the rest of her back injections until she sees her float nurse. Patient History Patient Active Problem List Diagnosis Date Noted ??? Anxiety and depression 11/12/2017 ??? Uncontrolled type 2 diabetes mellitus with hyperglycemia, with long-term current use of insulin([facility]) 11/06/2017 ??? Allergy to drug 11/06/2017 ??? Dysuria 10/26/2017 ??? Acute left-sided low back pain with left-sided sciatica 10/23/2017 ??? Type 2 diabetes mellitus with neurologic complication, without long-term current use of insulin([facility]) 10/23/2017 ??? Essential hypertension 10/23/2017 ??? Long-term current use of opiate analgesic 10/23/2017 ??? Lumbosacral spondylosis without myelopathy 10/23/2017 ??? Radiculopathy, lumbosacral region 10/23/2017 ??? Spinal stenosis of lumbar region without neurogenic claudication 10/23/2017 ??? 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 ??? Type 2 diabetes mellitus with hyperglycemia, without long-term current use of insulin ([facility]) ??? Constipation ??? Malignant neoplasm of upper-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 ([facility]) 10/17/2017 ??? Cancer of overlapping sites of left female breast ([facility]) 10/13/2017 ??? Chronic anticoagulation ??? [...] ear discharge, ear pain, postnasal drip, sinus pain, sinus pressure and sore throat. Eyes: Negative for discharge, redness and visual disturbance. Respiratory: Negative for cough, chest tightness, shortness of breath and wheezing. Cardiovascular: Negative for chest pain and palpitations. Gastrointestinal: Negative for abdominal pain, blood in stool, diarrhea, nausea and vomiting. Endocrine: Negative for cold intolerance, polydipsia and polyuria. Genitourinary: Negative for difficulty urinating, dysuria, flank pain, hematuria and urgency. Musculoskeletal: Positive for back pain (left lower radiating down the left leg). Negative for joint swelling, myalgias, neck pain and neck stiffness. Skin: Negative for pallor and rash. Allergic/Immunologic: Negative for environmental allergies, food allergies and immunocompromised state. Neurological: Negative for dizziness, facial asymmetry, speech difficulty, weakness, light-headedness, numbness and headaches. Hematological: Negative for adenopathy. Psychiatric/Behavioral: Negative for agitation, confusion and hallucinations. Physical Exam ED Triage Vitals [11/19/172213] Temp Pulse Resp BP SpO2 36.6 ??C (97.9 ??F) 87 20 120/66 100 % Temp src Heart Rate Source [...] Musculoskeletal: Normal range of motion. She exhibits tenderness. She exhibits no edema or deformity. There is tenderness to palpation in the left paraspinal lower lumbar area. Patient is able to bend her left leg. Lymphadenopathy: She has no cervical adenopathy. Neurological: She is alert and oriented to person, place, and time. She displays normal reflexes. No cranial nerve deficit or sensory deficit. She exhibits normal muscle tone. Coordination normal. Skin: Skin is dry. Psychiatric: She has a normal mood and affect. Her behavior is normal. Nursing note and vitals reviewed. [facility] Vitals: 11/19/172213 BP: 120/66 Pulse: 87 Resp: 20 Temp: 36.6 ??C (97.9 ??F) SpO2: 100% Labs Reviewed POCT GLUCOSE DEVICE POCT GLUCOSE DEVICE Result Value Glucose, POC, bld 178 Narrative: [facility] Number of Diagnoses or Management Options Chronic left-sided low back pain with sciatica, sciatica laterality unspecified: Diagnosis management comments: 1:52 AM 11/20/2017 ER nurse reports pt is feeling better at this time. Pt is stable to be discharged home to f/u with her roller painter. This note was prepared by Bria Solis acting as a Scribe for Karlos Lim MD. ?? Signed by: Kehinde Dominguez, 10:36 PM 11/19/2017 I, Karlos Lim MD , have personally performed the services described in the documentation , reviewed the documentation, as recorded by the scribe in my presence, and it accurately and completely records my words and actions. Chronic left-sided low back pain with sciatica, sciatica laterality unspecified Karlos Lim MD 11/20/17 0211 * Jose E Flanagan, NURIS - 11/19/2017 10:11 PM CDT Couple hours ago documented in this encounter Plan of Treatment Not on file documented as of this encounter Procedures Procedure Name Priority Date/Time Associated Diagnosis Comments POCT GLUCOSE DEVICE Routine 11/19/2017 1 0:32 PM CDT documented in this encounter Results * POCT glucose (11/19/2017 10:32 PM CDT) Glucose, POC 178 70 - 199 mg/dL [facility] Blood specimen (specimen) 11/19/2017 10:32 PM CDT 11/19/2017 10:32 PM CDT Narrative [facility] - 11/19/2017 10:44 PM CDT us Notinfile Unknown LAB POCT ORDERABLES - DEVICE F inal Result [facility] [address] Department [place] [address] documented in this encounter Visit Diagnoses Diagnosis Chronic left-sided low back pain with sciatica, sciatica laterality unspecified- Primary documented in this encounter Administered Medications Inactive Administered Medications - up to 3 most recent administrations Medication Order MAR Action Action Date Dose Rate Site fentaNYL (SUBLIMAZE) preservative free injection 50 mcg 50 mcg, intravenous, Once, On 11/19/17 at 2300, For 1 dose Given 11/20/2017 12:18 AM CDT 50 mcg documented in this encounter Active and Recently Administered Medications Times are shown in CDT. Scheduled Medication Order 11/18/2017 11/19/2017 11/20/2017 fentaNYL (SUBLIMAZE) preservative free injection 50 mcg (COMPLETED) 50 mcg, intravenous, Once, On 11/19/17 at 2300, For 1 dose 0018 (Given - Provid er: Genaro Ludwig RN) documented in this encounter Orders Medications Ordered That Tyler ht Not Have Been Administered Count Last Ordered Date First Ordered Date fentaNYL (SUBLIMAZE) preserv ative free injection 50 mcg 1 11/19/2017 Lab Orders Without Results Count Last Ordered D ate First Ordered Date POCT GLUCOSE DEVICE 1 11/19/2017 documented in this encounter Care Teams Contact Lens Edge Buffer Relationship Specialty Start Date End Date Justen Gale MD [address] [facility] [address] [place] [address] PCP - General 10/09/17 Liu Jerez MD Consulting Physician Gastroenterology 07/28/17 [place] [address] [address] [facility] [address] [place] [address] Consulting Physician Pulmonary Disease 08/03/17 Khris Arthur MD [address] [facility] [address] [place] [address] Medical Oncologist/Engraver [employer] Medical Oncology 10/23/17 [place] [address] [address] [facility] [address] [place] [address] Surgeon Orthopedic Surgery 10/23/17 [place] [address] [address] Consulting Physician Pain Management 10/23/17 documented as of this encounter
--- OUTSIDE RECORDS SUMMARY | 2024-04-26 04:27 | XMS_ITS | Encounter Summary ---
Author Organization [facility] Healthcare Address [address] [place] [address] Care Team Providers Care Stretcher Leveler Operator Helper Name Role Phone Liu Jerez MD Unavailable Albert Corbin MD Unavailable Justen Gale MD Primary Care Provider Khris Arthur MD Unavailable [phone] Ko Melendez MD Unavailable John Paul Moyer MD Unavailable Reason for Visit * Reason Comments Fall 1630 I found her o n the floor with her face up aganist the wall. 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 Gender Identity Not on file Sexual Orientation Not on file documented as of this encounter Last Filed Vital Signs Vital Sign Reading Time Taken Comments Blood Pressure 131/81 11/28/2017 1:30 AM CDT Pulse 78 11/28/2017 1:30 AM CDT Temperature 36.8 ??C (98.2 ??F) 11/27/2017 7:56 PM CD T Respiratory Rate 19 11/28/2017 1:30 AM CDT Oxygen Saturation 99% 11/28/2017 1:15 AM CDT Inhaled Oxygen Concentration - - Weight 127 kg (280 lb) 11/27/2017 7:56 PM CDT Height 154.9 cm (5' 1 ) 11/27/2017 7:56 PM CDT Body Mass Index 52.91 11/27/2017 7:56 PM CDT documented in this encounter Medications [...] (HumaLOG) 100 unit/mL injection Inject under the skin 3 (three) times a day before meals. Sliding scale 8 insulin lispro (HumaLOG) 100 unit/mL injection [...] every day at bedtime 0 05/11/2012 8 traMADol (ULTRAM) 50 mg tablet Take 1 tablet (50 mg total) by mouth every 4 (four) hours as needed for pain. 20 tablet 11/28/2017 8 documented as of this encounter Ordered Prescriptions Prescription Sig Dispense Quantity Refills Last Filled Start Date End Date traMADol (ULTRAM) 50 mg tablet Take 1 tablet (50 mg total) by mouth every 4 (four) hours as needed for pain. 20 tablet 11/28/2017 01/01/2018 documented in this encounter Discharge Disposition Disposition Code Departure Means Destination Discharge to home or self care documented in this encounter ED Notes * Jose Nguyễn MD - 11/27/2017 11:12 PM CDT HPI Chief Complaint Patient presents with ??? Fall 1630 I found her on the floor with her face up aganist the wall. (2229) Patient is a 62-year-old female with a history of DM, HTN, CHF, osteoarthritis, and chronic low back pain with sciatica presenting to the ED via EMS with C- collar in place after pt was found by family member at home lying on the floor with face up against the wall. According to pt, she is unsure ofevents prior to unwitnessed fall. She states that she has pain all over body though greatest sources of pain is in her neck and low back. Pt also has an accompanying diffuse CAZARES. No visual changes, dizziness, nausea, or vomiting mentioned at this time. Patient History Patient Active Problem List Diagnosis Date Noted ??? Anxiety and depression 11/12/2017 ??? Uncontrolled type 2 diabetes mellitus with hyperglycemia, with long-term current use of insulin([facility]) 11/06/2017 ??? Allergy to drug 11/06/2017 ??? Dysuria 10/26/2017 ??? Acute left-sided low back pain with left-sided sciatica 10/23/2017 ??? Type 2 diabetes mellitus with neurologic complication, without long-term current use of insulin([facility]/HCC) 10/23/2017 ??? Essential hypertension 10/23/2017 ??? Long-term current use of opiate analgesic 10/23/2017 ??? Lumbosacral spondylosis without myelopathy 10/23/2017 ??? Radiculopathy, lumbosacral region 10/23/2017 ??? Spinal stenosis of lumbar region without neurogenic claudication 10/23/2017 ??? 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 ??? Type 2 diabetes mellitus with hyperglycemia, without long-term current use of insulin ([facility]/HCC) ??? Constipation ??? 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 Cancer of overlapping sites of left female breast (CMS/[facility]) 10/13/2017 ??? Chronic anticoagulation ??? [...] for chills and fever. Respiratory: Negative for cough, shortness of breath and wheezing. Cardiovascular: Negative for chest pain and palpitations. Gastrointestinal: Negative for abdominal pain, diarrhea, nausea and vomiting. Musculoskeletal: Positive for back pain and neck pain. Skin: Negative for rash. Neurological: Positive for syncope and headaches. Negative for dizziness and weakness. Physical Exam ED Triage Vitals [11/27/171955] Temp Pulse Resp BP SpO2 36.8 ??C (98.2 ??F) 88 18 139/78 100 % Temp src Heart Rate Source Patient Position BP Location FiO2 (%) Oral Monitor Sitting Right arm -- Physical Exam Constitutional: She is oriented to person, place, and time. She appears well- developed and well-nourished. HENT: Head: Normocephalic and atraumatic. Mouth/Throat: Oropharynx is clear and moist. Eyes: Pupils are equal, round, and reactive to light. EOM are normal. Neck: Normal range of motion. Neck supple. In C collar Cardiovascular: Normal rate and regular rhythm. Pulmonary/Chest: Effort normal and breath sounds normal. Abdominal: Soft. Bowel sounds are normal. Musculoskeletal: Normal range of motion. Neurological: She is alert and oriented to person, place, and time. Skin: Skin is warm. Nursing note and vitals reviewed. MDM MDM Labs Reviewed CBC WITH AUTO DIFFERENTIAL - Abnormal Result Value WBC 12.3 (*) Hgb 12.3 Hct 40.3 Plt 337 MPV 9.6 RBC 4.52 MCV 89.2 MCH 27.2 MCHC 30.5 (*) RDW CV 15.0 (*) RDW SD 49.2 (*) NRBC Abs 0.00 Narrative: DIFFERENTIAL AUTO - Abnormal Neutrophil absolute 8.3 (*) Immature granulocyte absolute 0.1 Lymphocytes absolute 2.6 Monocyte absolute 0.9 (*) Eosinophils absolute 0.4 Basophils, abs 0.0 Neutrophils 67.4 Immature granulocytes 0.5 Lymphocytes 21.4 Monocytes 7.4 Eosinophils 3.1 Basophils 0.2 Narrative: URINALYSIS AND REFLEX TO MICROSCOPIC AND CULTURE COMPREHENSIVE METABOLIC PANEL Sodium 139 Potassium, pl 4.0 Chloride 102 CO2 26 Anion Gap 15 BUN 15 Creatinine 0.75 Glucose 103 Calcium 9.9 Bilirubin, total 0.50 Protein, pl 7.3 Albumin 3.5 Alk phos 78 ALT 23 AST 22 Narrative: EGFR GFR 86 Narrative: CT Head WO Contrast Final Result Essentially Negative study. No bleed or mass. Electronically signed by: Fabienne Gaspar M.D. CT Cervical Spine WO Contrast (Results Pending) ED Course as of Nov 28 138 Time: 11/29 131 Value: CT Cervical Spine WO Contrast Comment: No acute fx or abnormality noted. By: Mariola Obregon Closed head injury, initial encounter Strain of neck muscle, initial encounter This note is prepared by Kehinde Farah, acting for and in the presence of Dr. Jose Nguyễn MD. I electronically signed this at 2322. I, Jose Nguyễn, have personally performed the services described in the documentation , reviewedthe documentation, as recorded by the scribe in my presence, and it accurately and completely records my words and actions. Jose Nguyễn MD 11/28/17 0139 Jose Nguyễn MD 11/28/17 0142 * Yesi Willson RN - 11/27/2017 8:08 PM CDT Pt reports posterior neck and back pain, c-collar placed in triage. Pt able to move all extremitiesequally. documented in this encounter Miscellaneous Notes * ED Procedure Note - Jose Nguyễn MD - 11/28/2017 1:52 AM CDTAssociated Order(s): ECG 12-LEAD Procedure ECG 12 lead Date/Time: 11/28/2017 5:28 AM Performed by: JOSE NGUYỄN Authorized by: JOSE NGUYỄN Rate: ECG rate: 84 ECG rate assessment: normal Rhythm: Rhythm: sinus rhythm Ectopy: Ectopy: none QRS: QRS axis: Normal Conduction: Conduction: normal ST segments: ST segments: Normal T waves: T waves: non-specific Interpretation: Interpretation: non-specific Recommended Follow-up: Recommended follow up: PCP follow-up Jose Nguyễn MD 11/28/17 0529 documented in this encounter Plan of Treatment Scheduled Orders Name Type Priority Associated Diagnoses Orde r Schedule Urinalysis reflex to microscopic and culture Urine Microbiology STAT STAT for 1 Occurrences starting 11/27/2017 until 11/27/2017 documented as of this encounter Procedures Procedure Name Priority Date/Time Associated Diagnosis Comments CT CERVICAL SPINE WO CONTRAST ED 11/28/2017 12:14 AM CDT EGFR STAT 11/27/2017 10:20 PM CDT DIFFERENTIAL AUTO STAT 11/27/2017 10: 20 PM CDT CBC WITH AUTO DIFFERENTIAL STAT 11/27/2017 10:20 PM CDT COMPREHENSIVE METABOLIC PANEL STAT 11/27/2017 10:[address] HEAD WO CONTRAST ED 11/27/2017 9 :54 PM CDT ECG 12-LEAD STAT 11/27/2017 8:18 PM CDT documented in this encounter Results * CT Cervical Spine WO Contrast (11/28/2017 12:14 AM CDT) Anatomical Region Laterality Modality Spine N/A Computed Tomogra phy 11/28/2017 7:46 AM CDT Impressions 11/28/2017 7:48 AM CDT No fracture or dislocation. Inhomogenous enlarged right lobe of the thyroid gland, raising the possibility of a multinodular goiter. Results transmitted to the ER by [facility] at 12:51 AM Electronically signed by: Fabienne Gaspar M.D. Narrative 11/28/2017 7:48 AM CDT RESULT: HISTORY: The patient 62-year-old female who fell against wall and now has neck pain. TECHNIQUE: Axial images obtained through the cervical spine with thin sections and viewed both at soft tissue and bone window settings. ??Following this coronal and sagittal reconstructions were performed. FINDINGS: Alignment normal and no fractures or dislocations are seen. ??The disc spaces and facet joints are well preserved. ??There is slight narrowing of the left neurocentral joints at the C6-C7 level. ??The remainder of the neurocentral joints normal. ??Relationship of C1-C2 is well preserved. ??No prevertebral soft tissue swelling noted. ??No narrowing of the neural foramina. ??Slight enlargement of the right lobe of the thyroid gland is noted with calcification within it. Procedure Note Fabienne Gaspar MD - 11/28/2017 RESULT: HISTORY: The patient 62-year-old female who fell against wall and now has neck pain. TECHNIQUE: Axial images obtained through the cervical spine with thin sections and viewed both at soft tissue and bone window settings. Following this coronal and sagittal reconstructions were performed. FINDINGS: Alignment normal and no fractures or dislocations are seen. The disc spaces and facet joints are well preserved. There is slight narrowing of the left neurocentral joints at the C6-C7 level. The remainder of the neurocentral joints normal. Relationship of C1-C2 is well preserved. No prevertebral soft tissue swelling noted. No narrowing of the neural foramina. Slight enlargement of the right lobe of the thyroid gland is noted with calcification within it. IMPRESSION: No fracture or dislocation. Inhomogenous enlarged right lobe of the thyroid gland, raising the possibility of a multinodular goiter. Results transmitted to the ER by [facility] at 12:51 AM Electronically signed by: Fabienne Gaspar M.D. us Jose Nguyễn MD IMG CT PROCEDURES Final Result * eGFR (11/27/2017 10:20 PM CDT) [facility] eGFR 86 mL/min/1.7 3 m2 [facility] Comment: Interpretive Data Reference Interval Normal ?>/= 90 mL/min/1.73m2 Mildly decreased* ? 60 - 89 mL/min/1.73m2 Mildly to moderately decreased ?45 - 59 mL/min/1.73m2 Moderately to severely decreased ??30 - 44 mL/min/1.73m2 Severely decreased ?15 - 29 mL/min/1.73m2 Kidney Failure ?< 15 ??mL/min/1.73m2 *Relative to young adult level If -[place] multiply value by 1.16. Estimated glomerular filtration [...] was last reviewed 2015. Blood specimen (specimen) 11/27/2017 10:20 PM CDT 11/27/2017 11:04 PM CDT Narrative [facility] - 11/27/2017 11:31 PM CDT us Jose Nguyễn MD LAB BLOOD ORDERABLES Final Res ult [facility] J[facility] [id number] [address] Department [place] [address] * (ABNORMAL) Differential, auto (11/27/2017 10:20 PM CDT) Neutrophil abs 8.3(H) 1.7 - 6.5 K/cumm [facility] Imm gran abs 0.1 0.0 - 0.1 K/cumm [facility] Lymphocyte abs 2.6 0.8 - 3.3 K/cumm [facility] Monocyte abs 0.9(H) 0.2 - 0.8 K/cumm [facility] Eosinophil abs 0.4 0.0 - 0.5 K/cumm [facility] Basophil abs 0.0 0.0 - 0.1 K/cumm [facility] Neutrophil pct 67.4 % [facility] Comment: Interpretive Data Percent cell count reference ranges are not reported, since discordance with absolute values may lead to misinterpretation of CBC data. Current Interpretive Data was last revised on 2017. Imm gran pct 0.5 % [facility] Comment: Interpretive Data Percent cell count reference ranges are not reported, since discordance with absolute values may lead to misinterpretation of CBC data. Current Interpretive Data was last revised on 2017. Lymphocyte pct 21.4 % [facility] Comment: Interpretive Data Percent cell count reference ranges are not reported, since discordance with absolute values may lead to misinterpretation of CBC data. Current Interpretive Data was last revised on 2017. Monocyte pct 7.4 % [facility] Comment: Interpretive Data Percent cell count reference ranges are not reported, since discordance with absolute values may lead to misinterpretation of CBC data. Current Interpretive Data was last revised on 2017. Eosinophil pct 3.1 % [facility] Comment: Interpretive Data Percent cell count reference ranges are not reported, since discordance with absolute values may lead to misinterpretation of CBC data. Current Interpretive Data was last revised on 2017. Basophil pct 0.2 % [facility] Comment: Interpretive Data Percent cell count reference ranges are not reported, since discordance with absolute values may lead to misinterpretation of CBC data. Current Interpretive Data was last revised on 2017. Blood specimen (specimen) 11/27/2017 10:20 PM CDT 11/27/2017 11:04 PM CDT Narrative [facility] - 11/27/2017 11:14 PM CDT us Jose Nguyễn MD LAB BLOOD ORDERABLES Final Res ult [facility] [id number] [address] Department [place] [address] * Comprehensive metabolic panel (11/27/2017 10:20 PM CDT) Sodium 139 135 - 145 mmol/L [facility] Potassium, pl 4.0 3.5 - 5.1 mmol/L [facility] Chloride 102 100 - 114 mmol/L [facility] CO2 26 22 - 32 mmol/L [facility] Anion gap 15 8 - 16 mmol/L [facility] BUN 15 8 - 24 mg/dL [facility] Creatinine 0.75 0.60 - 1.30 mg/dL [facility] Glucose 103 70 - 199 mg/dL [facility] Comment: Interpretive Data Fasting glucose [...] data was last revised 2017. Calcium 9.9 8.4 - 10.5 mg/dL [facility] Bilirubin, total 0.50 0.10 - 1.30 mg/dL [facility] Protein, pl 7.3 6.0 - 8.3 g/dL [facility] Albumin 3.5 3.2 - 4.8 g/dL [facility] Alk phos 78 30 - 110 Units/L [facility] ALT 23 1 - 45 Units/L [facility] AST 22 7 - 40 Units/L [facility] Blood specimen (specimen) 11/27/2017 10:20 PM CDT 11/27/2017 11:04 PM CDT Narrative [facility] - 11/27/2017 11:31 PM CDT us Jose Nguyễn MD LAB BLOOD ORDERABLES Final Res ult [facility] [id number] [address] Department [place] [address] * (ABNORMAL) CBC with auto differential (11/27/2017 10:20 PM CDT) WBC 12.3(H) 3.8 - 9.9 K/cumm [facility] Hgb 12.3 11.9 - 15.5 g/dL [facility] Hct 40.3 35.6 - 45.5 % [facility] Plt 337 150 - 400 K/cumm [facility] MPV 9.6 9.1 - 12.3 fL [facility] RBC 4.52 3.90 - 5.20 M/cumm [facility] MCV 89.2 81.3 - 96.4 fL [facility] MCH 27.2 27.1 - 33.3 pg [facility] MCHC 30.5(L) 32.3 - 35.7 g/dL [facility] RDW CV 15.0(H) 11.1 - 14.9 % [facility] RDW SD 49.2(H) 35.7 - 48.1 fL [facility] NRBC abs 0.00 0.00 - 0.01 K/cumm [facility] Blood specimen (specimen) 11/27/2017 10:20 PM CDT 11/27/2017 11:04 PM CDT Narrative [facility] - 11/27/2017 11:14 PM CDT us Jose Nguyễn MD LAB BLOOD ORDERABLES Final Res ult [facility] [id number] [address] Department [place] [address] * CT Head WO Contrast (11/27/2017 9:54 PM CDT) Anatomical Region Laterality Modality Head and Neck N/A Computed Tomogra phy 11/27/2017 10:0 0 PM CDT Impressions 11/27/2017 11:01 PM CDT Essentially Negative study. ??No bleed or mass. Electronically signed by: Fabienne Gaspar M.D. Narrative 11/27/2017 11:01 PM CDT RESULT: HISTORY: The patient is a 62-year-old female who fell down injuring her head. Comparison made with the previous study dated 04/04/2015. TECHNIQUE: Axial images obtained through the brain with thin sections and viewed both at soft tissue and bone window settings. FINDINGS: The 4th, 3rd and lateral ventricles are normal in size and position. Cerebral sulci are not prominent. ??No intracerebral hemorrhage or extra-axial fluid collection. ??Images obtained at bone window settings reveal the cranial vault to be intact. ??Mastoid air cells and paranasal sinuses are normally aerated other than for slight mucosal thickening in the right maxillary antrum. Procedure Note Fabienne Gaspar MD - 11/27/2017 RESULT: HISTORY: The patient is a 62-year-old female who fell down injuring her head. Comparison made with the previous study dated 04/04/2015. TECHNIQUE: Axial images obtained through the brain with thin sections and viewed both at soft tissue and bone window settings. FINDINGS: The 4th, 3rd and lateral ventricles are normal in size and position. Cerebral sulci are not prominent. No intracerebral hemorrhage or extra-axial fluid collection. Images obtained at bone window settings reveal the cranial vault to be intact. Mastoid air cells and paranasal sinuses are normally aerated other than for slight mucosal thickening in the right maxillary antrum. IMPRESSION: Essentially Negative study. No bleed or mass. Electronically signed by: Fabienne Gaspar M.D. Jose Nguyễn MD IMG CT PROCEDURES Final Result * ECG 12 lead (11/27/2017 8:18 PM CDT) Patient age 62 years [facility] Interpretation Text SINUS RHYTHMNONSPECIFIC T-WAVE ABNORMALITYBORDERLINE ECGPREVIOUS TRACIN11/11/2017 21.47No significant changes noted [facility] Comment:Physician Interprete r Dr. Opal Koo M.D. Ventricular Rate EKG/Min 84 /min [facility] P Wave Duration 108 ms [facility] QRS-Interval (MSEC) 92 ms [facility] NM-Interval (MSEC) 129 ms [facility] QT Interval 356 ms [facility] QTc 398 ms [facility] QTC Interval ms [facility] P [place] 7 deg [facility] QRS [place] -1 deg [facility] T [place] 42 deg [facility] 11/27/2017 8:18 PM CDT Jose Nguyễn MD ECG ORDERABLES Final Result [facility] documented in this encounter Visit Diagnoses Diagnosis Closed head injury, initial encounter- Primary Strain of neck muscle, initial encounter documented in this encounter Administered Medications Inactive Administered Medications - up to 3 most recent administrations Medication Order MAR Action Action Date Dose Rate Site morphine 4 mg/mL injection - ADS Override Pull Starting on Mon11/27/17 at 2252, For 1 dose, DAJUAN VIVAR: cabinet override morphine injection 4 mg 4 mg, intravenous, Once, On Mon11/27/17 at 2252, For 1 dose, Indications: PainIndications:Pain Given 11/27/2017 10:58 PM CDT 4 mg morphine injection 4 mg 4 mg, intravenous, Once, On Mon11/28/17 at 0018, For 1 dose, Indications: PainIndications:Pain Given 11/28/2017 12:36 AM CDT 4 mg documented in this encounter Discontinued Medications Medication Sig Discontinue Reason Start Date End Da te insulin glargine (LANTUS) 100 unit/mL injection Inject 30 Units under the skin 2 (two) times a day. Dose adjustment 11/06/2017 11/27/2017 documented as of this encounter Historical Medications * This list may reflect changes made after this encounter. insulin lispro (HumaLOG) 100 unit/mL injection Inject under the skin 3 (three) times a day before meals. Sliding scale 12/12/2017 insulin glargine (LANTUS) 100 unit/mL injection Inject 50 Units under the skin daily. Takes in the morning 01/26/2018 added in this encounter Active and Recently Administered Medications Times are shown in CDT. Scheduled Medication Order 11/26/2017 11/27/2017 11/28/2017 morphine injection 4 mg (COMPLETED) 4 mg, intravenous, Once, On Mon11/27/17 at 2252, For 1 dose, Indications: Pain 2258 (Given - Provider: Dajuan Vivar RN) morphine injection 4 mg (COMPLETED) 4 mg, intravenous, Once, On Mon11/28/17 at 0018, For 1 dose, Indications: Pain 0036 (Given - Provid er: Dajuan Vivar RN) documented in this encounter Care Teams Stretcher Leveler Operator Helper Relationship Specialty Start Date End Date Justen Gale MD [address] [address] PCP - General 10/09/17 Liu Jerez MD Consulting Physician Gastroenterology 07/28/17 [place] [id number] [place] [address] Consulting Physician Pulmonary Disease 08/03/17 Khris Arthur MD [address] [facility] [address] [place] [address] Medical Oncologist/Community Outreach Manager Medical Oncology 10/23/17 [place] [address] [address] [address] Surgeon Orthopedic Surgery 10/23/17 [place] [address] [address] [address] Consulting Physician Pain Management 10/23/17 documented as of this encounter
--- OUTSIDE RECORDS SUMMARY | 2024-04-26 04:27 | XMS_ITS | Encounter Summary ---
Author Organization [facility] Address [address] [place] [address] Care Team Providers Care Bag Bundler Name Role Phone Liu Jerez MD Unavailable Albert Corbin MD Unavailable Justen Gale MD Primary Care Provider Khris Arthur MD Unavailable [phone] Ko Melendez MD Unavailable John Paul Moyer MD Unavailable Reason for Visit * Reason Comments Hyperglycemia Encounter Details Date Type Department Care Team (Latest Contact Info) Description 11/11/2017 8:46 PM CDT - 11/14/2017 2:50 PM CDT Hospital Encounter [facility] [address] [place] [address] [place] [address] [facility] [address] [place] [address] [place] [address] [facility] [address] [place] [address] [place] [address] [facility] [address] [place] [address] [place] [address] [facility] [address] [place] [address] Diabetes mellitus due to underlying condition with hyperosmolarity without coma, unspecified whether prison insulin use (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 Gender Identity Not on file Sexual Orientation Not on file documented as of this encounter Last Filed Vital Signs Vital Sign Reading Time Taken Comments Blood Pressure 111/78 11/14/2017 8:00 AM CDT Pulse 90 11/14/2017 8:00 AM CDT Temperature 36.6 ??C (97.9 ??F) 11/14/2017 8:00 AM CD T Respiratory Rate 18 11/14/2017 8:00 AM CDT Oxygen Saturation 97% 11/14/2017 8:00 AM CDT Inhaled Oxygen Concentration - - Weight 126.1 kg (278 lb) 11/12/2017 8:30 AM CDT Height 154.9 cm (5' 1 ) 11/12/2017 8:30 AM CDT Body Mass Index 52.53 11/12/2017 8:30 AM CDT documented in this encounter Discharge Summaries * Zhen Carter MD - 11/14/2017 12:41 PM CDT Inpatient Discharge Summary BRIEF OVERVIEW Admitting Provider: Leoncio Hawkins MD Discharge Provider: Zhen Carter MD Primary Care Physician at Discharge: Justen Gale MD [phone] Admission Date: 11/11/2017 Discharge Date: 11/14/2017 Primary Discharge Diagnosis: Principal Problem: Uncontrolled type 2 diabetes mellitus with hyperglycemia, without long-term current use of insulin Secondary Discharge Diagnosis: Restless legs syndrome for many a years Morbid obesity Essential hypertension LUL (obstructive sleep apnea) History of pulmonary embolism Chronic anticoagulation 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 PLEASE SEE MY DETAILED DISCHARGE SUMMARY FROM HER MOST RECENT HOSPITALIZATION DETAILS OF HOSPITAL STAY Presenting Problem/History of Present Illness: Uncontrolled type 2 diabetes mellitus with hyperglycemia, with long-term current use of insulin ([facility]) Hospital Course: Basically, this admission resulted from not following my recent discharge instructions. During the most recent discharge, We gave her detailed instructions on Diabetes medications changes. Basically we stopped her all Diabetic oral medications and started her on Insulin regimen because of uncontrolled sugars on Pills. We discharged her on Insulin regimen Her PCP office disregarded our recommendations and put her back on the old oral regimen. She ended up back in the hospital with uncontrolled sugars. Fortunately she came back to my service. I took my extra time and communicated with her PCP office and convinced them about the necessity of her to continue the insulin regimen for better control of sugars They agreed and said they are glad to follow her in the clinic . She is discharged SAFELY With detailed insulin dosing instructions Test Results Pending at Discharge: Operative Procedures Performed: Pertinent Test Results: Discharge Details Physical Exam at Discharge: Discharge Condition: stable Pulse: 90 Resp: 18 BP: 111/78 Temp: 36.6 ??C (97.9 ??F) Weight: 126.1 kg (278 lb) Pertinent Exam Findings at Discharge: obese Female ao x 3 on RA HEENT :Atraumatic, normocephalic Neck :supple CVS : s1, S 2+ REGULAR LUNGS ; CTA Abdomen : obese, soft, non tender Extremities ; Improved swelling of feet Neuro : no focal deficits Discharge Disposition: Discharge to home or self care Code Status at Discharge: Full code Discharge Instructions: Discharge Medications: Your medication list START taking these medications insulin lispro 100 unit/mL injection Commonly known as: HumaLOG Inject 15 Units under the skin 3 (three) times a day with meals. AND SLIDING SCALE ON TOP OF SCHEDULED INSULIN LISPRO CHANGE how you take these medications insulin glargine 100 unit/mL injection Commonly known as: LANTUS Inject 30 Units under the skin 2 (two) times a day. What changed: when to take this lisinopril 20 mg tablet Commonly known as: PRINIVILZESTRIL take 1 Tablet (20MG) by oral route [...] to take this rivaroxaban 20 mg tablet Commonly known as: XARELTO Take 1 tablet (20 mg total) by mouth daily after dinner. What changed: medication strength CONTINUE taking these medications exemestane 25 mg tablet Commonly known as: AROMASIN furosemide 40 mg tablet Commonly known as: LASIX HYDROcodone-acetaminophen 5-325 mg per tablet Commonly known as: NORCO Take 1 tablet by mouth every 8 (eight) hours as needed for pain. STOP taking these medications sitaGLIPtin-metformin 50-1,000 mg per tablet Commonly known as: JANUMET Outpatient Follow-Up: Future Appointments Date Time Provider Department Center 12/12/2017 2:30 PM LAB, [facility] ONC LAB [facility] 12/12/2017 3:00 PM Khris Arthur MD ONC [facility] Oncology documented in this encounter Medications at Time [...] BID FOR 5 DAYS 0 10/18/2017 8 exemestane (AROMASIN) 25 mg tablet Take [...] Last Filled Start Date End Date insulin lispro (HumaLOG) 100 unit/mL injection Inject 15 Units under the skin 3 (three) times a day with meals. 10 mL 11/14/2017 01/26/2018 documented in this encounter Discharge Disposition Disposition Code Departure Means Destination Discharge to home or self care documented in this encounter Progress Notes * Margaux De Dios RN - 11/14/2017 1:55 PM CDT 11/14/17 [id number] Discharge Planning Type of Residence Private residence Steps in home? Yes, Outside of home Number of steps inside: 2 steps Living Arrangements Children ( Lives with daughter Yunior Marques [phone]) Support Systems Children;Spouse/significant other (Pt & spouse are but still amicable & he provides support when needed. Jimmie Marques [phone].) Assistance Needed Needs assistance with with ADLs. Medication Assistance Pt denies. Does patient wish to return to care facility? (n/a) Will the care facility allow the patient to return? (n/a) Facility contact name and number: n/a Home Care Services Yes Type of Home Care Services Other (Comment) (Choreworker ) Home care service name and phone number Pt's dtr Yunior is her hired choreworker providing services 19 hrs/week thru [place], [place]. Patient expects to be discharged to: Private residence Does the patient need discharge transport arranged? 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 Goal upon discharge is to return home with her dtr. Pt states is independent but herdwolf Mojica is her hired choreworker. Pt has [facility] [employer] insurance & Medicaid [place] on disability. Pt states has a Living Will but copy at home. Pt requested to bring in copy with next hospitalvisit in order to have on file. DME includes a functioning CPAP; walker, & cane that she uses oc casionally. PCP is Dr. Justen Gale. Preferred pharmacy is [place], [place]. Pt denies any home needs & is awaiting discharge paperwork. Jimmie is to transport home. * Zhen Carter MD - 11/13/2017 4:53 PM CDT General Medicine Daily Progress Subjective Chief complaint of Constitutional symptoms mostly 2/2 uncontrolled sugars Interval History: She was discharged by me about 6 days ago with detailed and clear instructions from me, health promotion educator . She was told to start taking the full insulin regimen and stop the oral antidiabetic pills> FOR SOME Reason, her PCP office nurse practitioner changed the plan back to square, meaning, she told her to stop the insulins and resume the pills. She ended up back in the hospital with uncontrolled sugars> We called her office and talked to her PCP AND Explained the situation. He said< he would rather follow the hospital discharge recommendations than what his INSTRUMENT CALIBRATOR did Objective Vitals: 24hr Min/Max: Temp Min: 36.6 ??C (97.8 ??F) Max: 36.7 ??C (98.1 ??F) Pulse Min: 76 Max: 84 BP Min: 89/59 Max: 109/70 Resp Min: 18 Max: 18 SpO2 Min: 96 % Max: 96 % I/O last 2 completed shifts: In: 3280 [P.O.:960; I.V.:2320] Out: - I/O this shift: In: 720 [P.O.:720] Out: - Physical Exam: Physical Exam sitting in the chair, AO X 3, ON RA HEENT :Atraumatic< normocephalic Neck :supple CVVS : S1, s2+ regular Lungs : CTA ABDOMEN : Morbidly obese, soft , non tender Extremities : + Pedal edema Neuro : No focal deficits Lab/Radiology/Diagnostic Review: Laboratory review: Lab results in the last 12 hours: Recent Results (from the past 12 hour(s)) POCT glucose Collection Time: 11/13/17 7:46 AM Result Value Ref Range Glucose, POC, bld 159 70 - 199 mg/dL Magnesium Collection Time: 11/13/17 8:53 AM Result Value Ref Range Magnesium 1.5 (L) 1.8 - 2.6 mg/dL Basic metabolic panel Collection Time: 11/13/17 8:53 AM Result Value Ref Range Sodium 132 (L) 135 - 145 mmol/L Potassium, pl 4.1 3.5 - 5.1 mmol/L Chloride 97 (L) 100 - 114 mmol/L CO2 26 22 - 32 mmol/L Anion Gap 13 8 - 16 mmol/L BUN 16 8 - 24 mg/dL Creatinine 0.76 0.60 - 1.30 mg/dL Glucose 331 (H) 70 - 199 mg/dL Calcium 9.4 8.4 - 10.5 mg/dL CBC with auto differential Collection Time: 11/13/17 8:53 AM Result Value Ref Range WBC 15.6 (H) 3.8 - 9.9 K/cumm Hgb 12.6 11.9 - 15.5 g/dL Hct 40.3 35.6 - 45.5 % Plt 302 150 - 400 K/cumm MPV 9.8 9.1 - 12.3 fL RBC 4.63 3.90 - 5.20 M/cumm MCV 87.0 81.3 - 96.4 fL MCH 27.2 27.1 - 33.3 pg MCHC 31.3 (L) 32.3 - 35.7 g/dL RDW CV 15.1 (H) 11.1 - 14.9 % RDW SD 47.8 35.7 - 48.1 fL NRBC Abs 0.00 0.00 - 0.01 K/cumm Differential, auto Collection Time: 11/13/17 8:53 AM Result Value Ref Range Neutrophil absolute 12.0 (H) 1.7 - 6.5 K/cumm Immature granulocyte absolute 0.1 0.0 - 0.1 K/cumm Lymphocytes absolute 2.3 0.8 - 3.3 K/cumm Monocyte absolute 0.9 (H) 0.2 - 0.8 K/cumm Eosinophils absolute 0.2 0.0 - 0.5 K/cumm Basophils, abs 0.0 0.0 - 0.1 K/cumm Neutrophils 77.4 % Immature granulocytes 0.5 % Lymphocytes 14.6 % Monocytes 5.7 % Eosinophils 1.5 % Basophils 0.3 % eGFR Collection Time: 11/13/17 8:53 AM Result Value Ref Range GFR 85 mL/min/1.73 m2 POCT glucose Collection Time: 11/13/17 12:38 PM Result Value Ref Range Glucose, POC, bld 129 70 - 199 mg/dL Assessment/Plan Principal Problem: Uncontrolled type 2 diabetes mellitus with hyperglycemia, with long-term current use of insulin (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 D/C Oral anti-diabetic medications Monitor her sugars overnight Zhen Carter MD Hospitalist Internal Medicine [phone] documented in this encounter H&P Notes * Yulisa Christensen NP - 11/12/2017 4:21 PM CDT History and Physical Date of Service: 11/12/2017 Primary Care Physician: Justen Gale MD [phone] SUBJECTIVE: Patient is a 62 y.o. female with a PMHx significant for . Presents to the ED with a chief complaintof generalized malaise. HPI: Patient presents the emergency department on November 12, 2017 from home with generalized malaise, nausea vomiting, shortness of breath. Patient was discharged from [facility] on November 06, 2017 after presenting with uncontrolled diabetes mellitus. On discharge she was to start taking Lantus 30 units b.i.d. and lispro 15 units t.i.d. with meals. Her home Janumet and metformin were discontinued.She also had significant lower extremity edema. She reports that she was feeling better after discharge with the exception of lower extremity edema. The she followed up with her primary care physician on November 09. Her blood sugar in the office was 380. Her PCP reduced her Lantus dose to daily and discontinue her lispro with meals and restarted her metformin and Janumet. She also started her on Lasix 40 mg daily. Her swelling improved with the addition of Lasix. Monday morning he early around 4:30 a.m. she woke up with nausea, jitteriness, shaking, , lightheaded and had an episode of emesis. She went back to bed but was restless throughout the rest of the night. When she woke upon Monday she continued to have weakness, dizziness, shakiness. Reports that at no time was she hypoglycemic. She was able to eat her usual meals. Contacted her PCP office and they instructed her to come to the emergency department. On arrival to the ED her vital signs were temp 97.9??, heart rate 85, respirations 18, BP 131/62, 95% on room air. Lab showed a glucose of 321, sodium 132, BUN 30, WBCs 18.7, 3+ glucose in urine. She denies fevers, chills, chest pain, abdominal pain, diarrhea or dysuria. Past Medical History: Diagnosis Date ??? Adiposity [...] Medication Sig Dispense Refill Last Dose ??? furosemide (LASIX) 40 mg tablet Take 40 mg by mouth daily. 11/11/2017 at Unknown time ??? sitaGLIPtin-metformin (JANUMET) 50-1,000 mg per tablet Take 1 tablet by mouth 2 (two) times a day with meals. 11/11/2017 at Unknown time ??? exemestane (AROMASIN) 25 mg tablet Take 25 mg by mouth daily. After a meal 11/11/2017 at Unknowntime ??? HYDROcodone-acetaminophen (NORCO) 5-325 mg per tablet Take 1 tablet by mouth every 8 (eight) hours as needed for pain. 20 tablet 0 11/11/2017 at Unknown time ??? insulin glargine (LANTUS) 100 unit/mL injection Inject 30 Units under the skin 2 (two) times a day. (Patient taking differently: Inject 30 Units under the skin nightly. ) 10 mL 0 Past Week at Unknown time ??? lisinopril (PRINIVIL,ZESTRIL) 20 mg tablet take 1 Tablet (20MG) by oral route every day (Patient taking differently: Take 20 mg by mouth daily. ) 0 11/11/2017 at Unknown time ??? oxybutynin (DITROPAN) 5 mg tablet take 1 tablet by oral route every day (Patient taking differently: Take 5 mg by mouth 2 (two) times a day. ) 0 0 11/11/2017 at Unknown time ??? polyethylene glycol (MIRALAX) 17 gram/dose powder Mix 1 scoop (17 g) in 8 oz of water and drinkdaily. (Patient taking differently: daily as needed. Mix 1 scoop (17 g) in 8 oz of water and drink daily. ) 527 g 0 Past Month at Unknown time ??? rivaroxaban (XARELTO) 10 mg tablet Take 20 mg by mouth daily after dinner. Past Week at Unknowntime ??? rOPINIRole (REQUIP) 5 mg tablet take 1 tablet (5MG) by oral route every day at bedtime (Patienttaking differently: Take 5 mg by mouth nightly. ) 0 Past Week at Unknown time Allergies Allergen Reactions ??? Ceftriaxone Anaphylaxis R ??? Cephalosporins Anaphylaxis ??? Metoclopramide Other (See comments) Restless leg syndrome ??? Oxycodone Vomiting ??? [...] Systems Constitutional: Positive for fatigue. Negative for chills, diaphoresis and fever. HENT: Negative for congestion, ear pain, hearing loss, sinus pressure, sore throat and tinnitus. Eyes: Negative for pain and discharge. Respiratory: Positive for shortness of breath. Negative for apnea, cough, chest tightness and wheezing. Cardiovascular: Negative for chest pain, palpitations and leg swelling. Gastrointestinal: Positive for nausea and vomiting. Negative for abdominal distention, abdominal pain, constipation and diarrhea. Endocrine: Negative for polydipsia, polyphagia and polyuria. Genitourinary: Negative for dysuria, hematuria and urgency. Musculoskeletal: Negative for arthralgias, back pain and myalgias. Skin: Negative for rash and wound. Allergic/Immunologic: Negative for food allergies. Neurological: Positive for weakness and light-headedness. Negative for dizziness, tremors, seizures, syncope and headaches. Hematological: Negative for adenopathy. Psychiatric/Behavioral: Negative for confusion and hallucinations. The patient is not nervous/anxious. OBJECTIVE: Vitals: Arrival Vitals Temp 11/11/17 2103 36.6 ??C (97.9 ??F) Pulse 11/11/17 2103 85 Resp 11/11/173 18 BP 11/11/17 2103 131/62 SpO2 11/11/17 2103 95 % Temp src 11/11/17 210 Oral Heart Rate Source 11/11/172102 Monitor Patient Position 11/12/17 0830 Sitting BP Location 11/11/17 2103 Right arm FiO2 (%) -- Most Recent : Vitals: 11/12/17 0745 11/12/17 0800 11/12/17 0830 11/12/17 1606 BP: 116/72 141/98 117/77 BP Location: Right arm Right arm Patient Position: Sitting Sitting Pulse: 70 85 75 77 Resp: 20 20 Temp: 36.6 ??C (97.9 ??F) 36.6 ??C (97.9 ??F) TempSrc: Oral Oral SpO2: 91% 97% 99% 95% Weight: 126.1 kg (278 lb) Height: 154.9 cm (5' 1 ) I/O last 2 completed shifts: In: 1000 [IV Piggyback:1000] Out: - I/O this shift: In: 2320 [P.O.:720; I.V.:1600] Out: - Physical Exam: Physical Exam Constitutional: She is oriented to person, place, and time. She appears well- developed and well-nourished. She appears ill. No distress. HENT: Head: Normocephalic and atraumatic. Mouth/Throat: Oropharynx is clear and moist. Eyes: Pupils are equal, round, and reactive to light. EOM are normal. Neck: Normal range of motion. Neck supple. No JVD present. No tracheal deviation present. No thyromegaly present. [...] There is no tenderness. There is no guarding. Musculoskeletal: Normal range of motion. She exhibits no edema. Lymphadenopathy: She has no cervical adenopathy. Neurological: She is alert and oriented to person, place, and time. Skin: Skin is warm and dry. Capillary refill takes less than 2 seconds. No rash noted. She is not diaphoretic. Psychiatric: She has a normal mood and affect. Her behavior is normal. Vitals reviewed. Lab/Radiology/Diagnostic Review: Recent Results (from the past 24 hour(s)) POCT glucose Collection Time: 11/11/17 9:02 PM Result Value Ref Range Glucose, POC, bld 299 (H) 70 - 199 mg/dL Glucose comment 1 RN/MD Notified CBC with auto differential Collection Time: 11/11/17 9:40 PM Result Value Ref Range WBC 18.7 (H) 3.8 - 9.9 K/cumm Hgb 12.4 11.9 - 15.5 g/dL Hct 38.8 35.6 - 45.5 % Plt 316 150 - 400 K/cumm MPV 9.7 9.1 - 12.3 fL RBC 4.47 3.90 - 5.20 M/cumm MCV 86.8 81.3 - 96.4 fL MCH 27.7 27.1 - 33.3 pg MCHC 32.0 (L) 32.3 - 35.7 g/dL RDW CV 15.2 (H) 11.1 - 14.9 % RDW SD 48.5 (H) 35.7 - 48.1 fL NRBC Abs 0.00 0.00 - 0.01 K/cumm Comprehensive metabolic panel Collection Time: 11/11/17 9:40 PM Result Value Ref Range Sodium 132 (L) 135 - 145 mmol/L Potassium, pl 4.7 3.5 - 5.1 mmol/L Chloride 100 100 - 114 mmol/L CO2 24 22 - 32 mmol/L Anion Gap 13 8 - 16 mmol/L BUN 30 (H) 8 - 24 mg/dL Creatinine 0.80 0.60 - 1.30 mg/dL Glucose 321 (H) 70 - 199 mg/dL Calcium 9.2 8.4 - 10.5 mg/dL Bilirubin, total 0.50 0.10 - 1.30 mg/dL Protein, pl 6.2 6.0 - 8.3 g/dL Albumin 3.1 (L) 3.2 - 4.8 g/dL Alk phos 74 30 - 110 Units/L ALT 22 1 - 45 Units/L AST 19 7 - 40 Units/L B-type natriuretic peptide Collection Time: 11/11/17 9:40 PM Result Value Ref Range B-Type Natriuretic Peptide (BNP) 22 0 - 100 pg/mL Troponin I Collection Time: 11/11/17 9:40 PM Result Value Ref Range Troponin I <0.03 0.00 - 0.14 ng/mL Differential, auto Collection Time: 11/11/17 9:40 PM Result Value Ref Range Neutrophil absolute 13.8 (H) 1.7 - 6.5 K/cumm Immature granulocyte absolute 0.1 0.0 - 0.1 K/cumm Lymphocytes absolute 3.0 0.8 - 3.3 K/cumm Monocyte absolute 1.5 (H) 0.2 - 0.8 K/cumm Eosinophils absolute 0.3 0.0 - 0.5 K/cumm Basophils, abs 0.0 0.0 - 0.1 K/cumm Neutrophils 73.7 % Immature granulocytes 0.7 % Lymphocytes 16.2 % Monocytes 7.8 % Eosinophils 1.4 % Basophils 0.2 % eGFR Collection Time: 11/11/17 9:40 PM Result Value Ref Range GFR 80 mL/min/1.73 m2 Amylase Collection Time: 11/11/17 9:40 PM Result Value Ref Range Amylase 61 35 - 100 Units/L Lipase Collection Time: 11/11/17 9:40 PM Result Value Ref Range Lipase 44 20 - 50 Units/L ECG 12 lead Collection Time: 11/11/17 9:47 PM Result Value Ref Range Patient age 62 years Interpretation Text SINUS RHYTHM WITH SHORT WV INTERVALBORDERLINE ECGINTERPRETATION BASED ON A DEFAULT AGE OF 40 YEARSPREVIOUS TRACIN11/02/2017 08.56 Ventricular Rate EKG/Min 94 /min P Wave Duration 109 ms QRS-Interval (MSEC) 81 ms WV-Interval (MSEC) 119 ms QT Interval 348 ms QTc 407 ms QTC Interval ms P [place] 12 deg QRS [place] 18 deg T [place] 54 deg Blood culture Blood Collection Time: 11/11/17 11:00 PM Result Value Ref Range Report Preliminary Report: No growth to date. Urinalysis reflex to microscopic and culture Urine, bladder Collection Time: 11/11/17 11:15 PM Result Value Ref Range Color, ur Yellow Yellow Clarity, ur Clear Clear Specific gravity, ur 1.016 1.010 - 1.025 pH, urine 5.0 Protein, ur ql Negative Negative Glucose, ur ql 3+ (A) Negative Ketones, ur Negative Negative Bilirubin, ur Negative Negative Blood, ur 2+ (A) Negative Urobilinogen, ur <2.0 <2.0 mg/dL Nitrite, ur Negative Negative Leukocyte esterase, ur Negative Negative Blood culture Blood Collection Time: 11/11/17 11:15 PM Result Value Ref Range Report Preliminary Report: No growth to date. Urinalysis, microscopic only Collection Time: 11/11/17 11:15 PM Result Value Ref Range WBC, ur 0-5 0 - 5 /HPF RBC, ur 0-5 0 - 5 /HPF Mucous, ur Present (A) POCT glucose Collection Time: 11/12/17 7:57 AM Result Value Ref Range Glucose, POC, bld 205 (H) 70 - 199 mg/dL POCT glucose Collection Time: 11/12/17 12:28 PM Result Value Ref Range Glucose, POC, bld 211 (H) 70 - 199 mg/dL POCT glucose Collection Time: 11/12/17 5:23 PM Result Value Ref Range Glucose, POC, bld 226 (H) 70 - 199 mg/dL Ct Chest Pe Abdomen Pelvis W Contrast Result Date: 11/12/2017 Narrative: CT CHEST ABDOMEN AND PELVIS WITH CONTRAST HISTORY: 17-year-old presented with dyspnea TECHNIQUE: Enhanced CT of the chest, abdomen and pelvis was performed following the insertion of 95 mLOptiray 350. FINDINGS: Lungs are well-aerated without infiltrate or focal consolidation. No pericardial or pleural effusion. No evidence pulmonary embolism. Thoracic aorta is normal caliber. No pericardial or pleural effusion. No mediastinal, hilar or axillary lymphadenopathy There are fatty changeof the liver. The spleen, pancreas, adrenals appear unremarkable Gallbladder is surgically absent. Normal appendix. Kidneys of normal size. Subcentimeter cyst is in upper pole right kidney. The aortais normal caliber. No bowel obstruction. Evidence of ventral abdominal wall hernia repair.. Anterior abdominal wall mesh is seen in place. Fluid-filled urinary bladder normal. Normal size uterus. No inguinal or pelvic lymphadenopathy Sclerosis of the iliac portion of the both SI joints suggestive of osteitis condensans ilei. Impression: IMPRESSION: No evidence of pulmonary embolism. No lung infiltrate. Hepatic steatosis. Prior cholecystectomy. Electronically signed by: Bruce Lake M.D. ASSESSMENT/PLAN: Principal Problem: Uncontrolled type 2 diabetes mellitus with hyperglycemia, with long-term current use of insulin (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 Uncontrolled T2 DM with hyperglycemia-patient was recently started on the basal bolus insulin regimen. This medication was adjusted and discontinued by her PCP in lieu of an in office blood sugar of 380. Likely her generalized malaise, weakness, nausea and vomiting is secondary to severe hyperglycemia. Does not appear to be in ketoacidosis. Will resume Lantus daily, lispro with meals, and sliding scale for corrective coverage. Hold metformin and Janumet. Monitor her glucose a.c. and HS. Willdetermine need for additional dose of Lantus as previously described. Last A1c was 9.2. No episodesof hypoglycemia reported from home. Consistent carb diet. 2. Dyspnea-likely secondary to hyperglycemia. Currently improved. Listed history of heart failure, last EF 60% with no systolic or diastolic dysfunction noted. Will continue her home Lasix at 20 mg instead of her 40 mg dose. Her lower extremity edema has resolved. 3. Hypertension-controlled. Continue home lisinopril and Lasix. Vital signs per floor routine. 4. Hyponatremia-hyponatremic on previous admission as well. Recently started on Lasix with adequatediuresis and her resolution of lower extremity edema. It is possible that she has a small componentof dehydration due to hyperglycemia and diuretics. She has received IV fluid since arrival. Currently eating and drinking. Will DC IV fluids. Decrease Lasix dose. Monitor labs. 5. Restless leg syndrome-continue home dose Requip. 6. History of pulmonary embolism/DVT-continue home dose oral toe. CT chest PE done in the ED which was negative for acute pulmonary embolism. 7. Chronic lumbar pain-continue home dose [place]. Her pain is currently exacerbated because her painmedications were not reordered. Will give her a 1 time dose of Dilaudid. 8. DVT prophylaxis-on Xarelto. 9. Full Code ESTIMATED LENGTH OF STAY: >2 midnights Yulisa Christensen NP 11/12/2017 6:26 PM Cosigned by Zhen Carter MD at 11/24/2017 4:04 PM CDT documented in this encounter Nursing Notes * Prisca Barrett RN - 11/13/2017 2:53 PM CDT Follow up visit from last admission. Patient explains that when discharged,15 units of Humalog insulin per meal was not indicated when she picked up her prescriptions from the pharmacy--only Humalog order was to use sliding scale insulin PRN 5X/day (ac, hs and 0200). This was allowing glucose to stay in the 200 range. [facility] discharge note from indicates both prandial and sliding scale insulin was ordered at [facility]. Patient understands the value of prandial insulin plus sliding scale however I do not think she needs to wake at night for home sliding scale insulin use at 0200. She denies any difficulty using insulin pens or testing her glucose. Prisca Barrett RN, CDE 11/13/2017 3:02 PM documented in this encounter ED Notes * Enmanuel Dubon MD - 11/11/2017 10:21 PM CDT HPI Chief Complaint Patient presents with ??? Hyperglycemia 10:15 PM 11/11/2017 Pt is a 62 y/o female with a history of DM, HTN, PE (XARELTO), DVT and CHF presents to the ED for evaluation of multiple medical complaints. Pt complains of worsening shortness of breath that began two days ago. She states that her symptom is exacerbated on exertion. Pt notes that she wasrecently discharged after presenting with similar symptoms. She notes that she was switched to Insulin two days ago at her follow up appointment with her PCP. Since the medication change, she reportsgeneralized malaise, nausea and several episodes of emesis. No chest pain or abdominal pain. She also reports bilateral LE edema, but notes improvement after receiving a water pill from her PCP during her follow up visit. Per chart review, patient was admitted to [facility] from 11/01/2017-11/06/2017 [address] presenting with dyspnea. CT CHEST: No evidence of pulmonary embolus or aortic dissection. Chest XR: No acute cardiopulmonary process. Patient History Patient Active Problem List Diagnosis Date Noted ??? Uncontrolled type 2 diabetes mellitus with hyperglycemia, without long-term current use of insulin ([facility]) 11/06/2017 ??? Allergy to drug 11/06/2017 ??? Dysuria 10/26/2017 ??? Acute left-sided low back pain with left-sided sciatica 10/23/2017 ??? Type 2 diabetes mellitus with neurologic complication, without long-term current use of insulin([facility]) 10/23/2017 ??? Essential hypertension 10/23/2017 ??? Long-term [...] Negative for chills, fatigue and fever. + generalized malaise HENT: Negative for congestion, ear pain, rhinorrhea, sneezing and sore throat. Respiratory: Positive for shortness of breath. Negative for cough and wheezing. Cardiovascular: Positive for leg swelling (bilateral ). Negative for chest pain and palpitations. Gastrointestinal: Positive for nausea and vomiting. Negative for abdominal pain, constipation and diarrhea. Genitourinary: Negative for dysuria and frequency. Musculoskeletal: Negative for arthralgias, back pain, myalgias and neck pain. Skin: Negative for color change, pallor, rash and wound. Neurological: Negative for dizziness, syncope, weakness, light-headedness and headaches. All other systems reviewed and are negative. Physical Exam ED Triage Vitals [11/11/17 2103] Temp Pulse Resp BP SpO2 36.6 ??C (97.9 ??F) 85 18 131/62 95 % Temp src Heart Rate Source Patient Position BP Location FiO2 (%) Oral Monitor -- Right arm -- Physical Exam Constitutional: She [...] is normal. Nursing note and vitals reviewed. [facility] Reviewed URINALYSIS AND REFLEX TO MICROSCOPIC AND CULTURE - Abnormal Result Value Color, ur Yellow Clarity, ur Clear Specific gravity, ur 1.016 pH, urine 5.0 Protein, ur ql Negative [...] tendency for uric acid stone formation. Source: [facility] [place].Last revised 05-04-2017 CBC WITH AUTO DIFFERENTIAL - Abnormal WBC 18.7 (*) Hgb 12.4 Hct 38.8 Plt 316 MPV 9.7 RBC 4.47 MCV 86.8 MCH 27.7 MCHC 32.0 (*) RDW CV 15.2 (*) RDW SD 48.5 (*) NRBC Abs 0.00 Narrative: COMPREHENSIVE METABOLIC PANEL - Abnormal Sodium 132 (*) Potassium, pl 4.7 Chloride 100 CO2 24 Anion Gap 13 BUN 30 (*) Creatinine 0.80 Glucose 321 (*) Calcium 9.2 Bilirubin, total 0.50 Protein, pl 6.2 Albumin 3.1 (*) Alk phos 74 ALT 22 AST 19 Narrative: DIFFERENTIAL AUTO - Abnormal Neutrophil absolute 13.8 (*) Immature granulocyte absolute 0.1 Lymphocytes absolute 3.0 Monocyte absolute 1.5 (*) Eosinophils absolute 0.3 Basophils, abs 0.0 Neutrophils 73.7 Immature granulocytes 0.7 Lymphocytes 16.2 Monocytes 7.8 Eosinophils 1.4 Basophils 0.2 Narrative: URINALYSIS, MICROSCOPIC ONLY - Abnormal WBC, ur 0-5 RBC, ur 0-5 Mucous, ur Present (*) Narrative: POCT GLUCOSE DEVICE - Abnormal Glucose, POC, bld 299 (*) Glucose comment 1 RN/MD Notified Narrative: BLOOD CULTURE BLOOD CULTURE B-TYPE NATRIURETIC PEPTIDE B-Type Natriuretic Peptide (BNP) 22 Narrative: TROPONIN I Troponin I <0.03 Narrative: EGFR GFR 80 Narrative: AMYLASE Amylase 61 Narrative: LIPASE Lipase 44 Narrative: POCT GLUCOSE DEVICE CT Chest PE Abdomen Pelvis W Contrast (Results Pending) BP 128/80 Pulse 81 Temp 36.6 ??C (97.9 ??F) (Oral) Resp 20 Ht 154.9 cm (5' 1 ) Wt 126.1 kg (278 lb) SpO2 100% BMI 52.53 kg/m?? [facility] ED Course as of Nov 12 457 Time: 11/12 304 Comment: CT Chest ABD/PEL: Chest normal. No acute intra-abdominal abnormality appreciated. By: Jovi Goel Time: 11/12 457 Comment: Discussed patient's case with Dr. Hawkins, [facility], who accepts the patient for admission. By: Jovi Goel Diabetes mellitus due to underlying condition with hyperosmolarity without coma, unspecified whether manager terminal insulin use ([facility]) Leukocytosis, unspecified type Jovi Goel scribed for Enmanuel Dubon MD in the doctor's presence. I electronically signed this note at 10:36 PM on 11/11/2017. I, Enmanuel Dubon MD have personally performed the services described in the documentation, as recorded by the scribe in my presence. Enmanuel Dubon MD 11/12/17 0651 * Jose E Flanagan RN - 11/11/2017 8:57 PM CDT Trouble today regulating my blood sugar. documented in this encounter Miscellaneous Notes * Plan of Care - Rosa Nava RN - 11/14/2017 11:36 AM CDT Goals: Clinical Goals for the Shift: decreased anxiety, pain, fsbs wnl Understanding of discharge needs will improve Progressing Knowledge of disease or condition will improve Progressing Will remain free from falls Progressing Summary: Pt has stable FSBS, possible dc today * Plan of Care - Lachelle Fletcher RN - 11/14/2017 5:37 AM CDT Goals: Clinical Goals for the Shift: decreased anxiety, pain, fsbs wnl Summary: Patient became tearful r/t pain. Pain meds given x 2 this shift. One time order for musclerelaxer obtained. Pt stated that helped. fsbs 180-208. No acute distress noted. * Plan of Care - Rosa Nava RN - 11/13/2017 11:31 AM CDT Goals: Clinical Goals for the Shift: decreased anxiety, pain, fsbs wnl Summary: Pt having improvement in FSBS, DE consulted * Plan of Care - Kalen Frederick RN - 11/13/2017 3:58 AM CDT Goals: Clinical Goals for the Shift: decreased anxiety, pain, fsbs wnl Summary: Patients glucose improved during the night. Continue to monitor. * Plan of Care - Cecilia Aranda RN - 11/12/2017 9:54 AM CDT Problem: Lack of Knowledge: Goal: Ability to state ways to decrease the risk of falls will improve Outcome: Progressing Comments: Goals: pt will have no injuries related to falls documented in this encounter Plan of Treatment Not on file documented as of this encounter Procedures Procedure Name Priority Date/Time Associated Diagnosis Comments POCT GLUCOSE DEVICE Routine 11/14/2017 1 2:44 PM CDT POCT GLUCOSE DEVICE Routine 11/14/2017 7 :56 AM CDT POCT GLUCOSE DEVICE Routine 11/14/2017 3 :25 AM CDT POCT GLUCOSE DEVICE Routine 11/13/2017 9 :03 PM CDT POCT GLUCOSE DEVICE Routine 11/13/2017 5 :38 PM CDT POCT GLUCOSE DEVICE Routine 11/13/2017 1 2:38 PM CDT EGFR Routine 11/13/2017 8:53 AM CDT DIFFERENTIAL AUTO Routine 11/13/2017 8:5 3 AM CDT CBC WITH AUTO DIFFERENTIAL Routine 11/13/2017 8:53 AM CDT MAGNESIUM Routine 11/13/2017 8:53 AM CDT BASIC METABOLIC PANEL Routine 11/13/2017 8:53 AM CDT POCT GLUCOSE DEVICE Routine 11/13/2017 7 :46 AM CDT POCT GLUCOSE DEVICE Routine 11/13/2017 2 :26 AM CDT POCT GLUCOSE DEVICE Routine 11/12/2017 9 :50 PM CDT POCT GLUCOSE DEVICE Routine 11/12/2017 8 :10 PM CDT EGFR STAT 11/12/2017 6:16 PM CDT DIFFERENTIAL AUTO STAT 11/12/2017 6:1 6 PM CDT BETA-HYDROXYBUTYRATE Routine 11/12/2017 6:16 PM CDT CBC WITH AUTO DIFFERENTIAL STAT 11/12/2017 6:16 PM CDT MAGNESIUM STAT 11/12/2017 6:16 PM CDT COMPREHENSIVE METABOLIC PANEL STAT 11/12/2017 6:16 PM CDT POCT GLUCOSE DEVICE Routine 11/12/2017 5 :23 PM CDT POCT GLUCOSE DEVICE Routine 11/12/2017 1 2:28 PM CDT POCT GLUCOSE DEVICE Routine 11/12/2017 7 :[address] CHEST PE ABDOMEN PELVIS W CONTRAST ED 11/12/2017 12:23 AM CDT URINALYSIS AND REFLEX TO MICROSCOPIC AND CULTURE STAT 11/11/2017 11:15 PM CDT BLOOD CULTURE Routine 11/11/2017 11:15 PM CDT URINALYSIS, MICROSCOPIC ONLY STAT 11/11/2017 11:15 PM CDT BLOOD CULTURE Routine 11/11/2017 11:00 PM CDT ECG 12-LEAD STAT 11/11/2017 9:47 PM CDT EGFR STAT 11/11/2017 9:40 PM CDT DIFFERENTIAL AUTO STAT 11/11/2017 9:4 0 PM CDT CBC WITH AUTO DIFFERENTIAL STAT 11/11/2017 9:40 PM CDT TROPONIN I STAT 11/11/2017 9:40 PM CDT B-TYPE NATRIURETIC PEPTIDE STAT 11/11/2017 9:40 PM CDT LIPASE STAT 11/11/2017 9:40 PM CDT AMYLASE STAT 11/11/2017 9:40 PM CDT COMPREHENSIVE METABOLIC PANEL STAT 11/11/2017 9:40 PM CDT POCT GLUCOSE DEVICE Routine 11/11/2017 9 :02 PM CDT documented in this encounter Results * POCT glucose (11/14/2017 12:44 PM CDT) Glucose, POC 138 70 - 199 mg/dL [facility] Blood specimen (specimen) 11/14/2017 12:44 PM CDT 11/14/2017 12:44 PM CDT Narrative [facility] - 11/14/2017 12:46 PM CDT Zhen Carter MD LAB POCT ORDERABLES - DEVICE Final Result Performing Organization Address [facility] de Phone Number BCPUJA ARNOLD [address] [facility] [place] [address] * POCT glucose (11/14/2017 7:56 AM CDT) Glucose, POC 159 70 - 199 mg/dL [facility] Blood specimen (specimen) 11/14/2017 7:56 AM CDT 11/14/2017 7:56 AM CDT [facility] - 11/14/2017 8:09 AM CDT Zhen Carter MD LAB POCT ORDERABLES - DEVICE Final Result Performing Organization Address City/[facility] Co de Phone Number MARY JANE ARNOLD [address] [facility] [place] [address] * POCT glucose (11/14/2017 3:25 AM CDT) Glucose, POC 182 70 - 199 mg/dL [facility] Blood specimen (specimen) 11/14/2017 3:25 AM CDT 11/14/2017 3:25 AM CDT Narrative [facility] - 11/14/2017 3:40 AM CDT Zhen Carter MD LAB POCT ORDERABLES - DEVICE Final Result Performing Organization Address [facility] Co de Phone Number MARY JANE ARNOLD [address] [facility] [place] [address] * (ABNORMAL) POCT glucose (11/13/2017 9:03 PM CDT) Glucose, POC 208(H) 70 - 199 mg/dL [facility] Blood specimen (specimen) 11/13/2017 9:03 PM CDT 11/13/2017 9:03 PM CDT Narrative MARY JANE - 11/13/2017 9:06 PM CDT Zhen Carter MD LAB POCT ORDERABLES - DEVICE Final Result Performing Organization Address [facility] de Phone Number BCPUJA ARNOLD [address] [facility] [place] [address] * POCT glucose (11/13/2017 5:38 PM CDT) Glucose, POC 143 70 - 199 mg/dL [facility] Blood specimen (specimen) 11/13/2017 5:38 PM CDT 11/13/2017 5:38 PM CDT Narrative MARY JANE - 11/13/2017 5:39 PM CDT Zhen Carter MD LAB POCT ORDERABLES - DEVICE Final Result Performing Organization Address [facility] Co de Phone Number BCPUJA ARNOLD [address] [facility] [place] [address] * POCT glucose (11/13/2017 12:38 PM CDT) Glucose, POC 129 70 - 199 mg/dL [facility] Blood specimen (specimen) 11/13/2017 12:38 PM CDT 11/13/2017 12:38 PM CDT Narrative MARY JANE - 11/13/2017 12:39 PM CDT Zhen Carter MD LAB POCT ORDERABLES - DEVICE Final Result Performing Organization Address [facility] Co de Phone Number MARY JANE [address] Department [place] [address] * eGFR (11/13/2017 8:53 AM CDT) Pathologist [facility] eGFR 85 mL/min/1.7 3 m2 MARY JANE Comment: Interpretive Data Reference Interval Normal ?>/= 90 mL/min/1.73m2 Mildly decreased* ? 60 - 89 mL/min/1.73m2 Mildly to moderately decreased ?45 - 59 mL/min/1.73m2 Moderately to severely decreased ??30 - 44 mL/min/1.73m2 Severely decreased ?15 - 29 mL/min/1.73m2 Kidney Failure ?< 15 ??mL/min/1.73m2 *Relative to young adult level If -Armenian multiply value by 1.16. Estimated glomerular filtration [...] was last reviewed 2015. Blood specimen (specimen) 11/13/2017 8:53 AM CDT 11/13/2017 9:17 AM CDT Narrative MARY JANE - 11/13/2017 9:34 AM CDT us Yulisa Tilley NP LAB BLOOD ORDERABLES Final Res ult MARY JANE [id number] Department [place] [address] * (ABNORMAL) Differential, auto (11/13/2017 8:53 AM CDT) Neutrophil abs 12.0(H) 1.7 - 6.5 K/cumm [facility] Imm gran abs 0.1 0.0 - 0.1 K/cumm [facility] Lymphocyte abs 2.3 0.8 - 3.3 K/cumm [facility] Monocyte abs 0.9(H) 0.2 - 0.8 K/cumm [facility] Eosinophil abs 0.2 0.0 - 0.5 K/cumm [facility] Basophil abs 0.0 0.0 - 0.1 K/cumm [facility] Neutrophil pct 77.4 % [facility] Comment: Interpretive Data Percent cell count reference ranges are not reported, since discordance with absolute values may lead to misinterpretation of CBC data. Current Interpretive Data was last revised on 2017. Imm gran pct 0.5 % [facility] Comment: Interpretive Data Percent cell count reference ranges are not reported, since discordance with absolute values may lead to misinterpretation of CBC data. Current Interpretive Data was last revised on 2017. Lymphocyte pct 14.6 % [facility] Comment: Interpretive Data Percent cell count reference ranges are not reported, since discordance with absolute values may lead to misinterpretation of CBC data. Current Interpretive Data was last revised on 2017. Monocyte pct 5.7 % [facility] Comment: Interpretive Data Percent cell count reference ranges are not reported, since discordance with absolute values may lead to misinterpretation of CBC data. Current Interpretive Data was last revised on 2017. Eosinophil pct 1.5 % [facility] Comment: Interpretive Data Percent cell count reference ranges are not reported, since discordance with absolute values may lead to misinterpretation of CBC data. Current Interpretive Data was last revised on 2017. Basophil pct 0.3 % [facility] Comment: Interpretive Data Percent cell count reference ranges are not reported, since discordance with absolute values may lead to misinterpretation of CBC data. Current Interpretive Data was last revised on 2017. Blood specimen (specimen) 11/13/2017 8:53 AM CDT 11/13/2017 9:17 AM CDT Narrative MARY JANE - 11/13/2017 9:25 AM CDT Yulisa Tilley INSTRUMENT CALIBRATOR LAB BLOOD ORDERABLES Final Res ult Performing Organization Address [facility] Co de Phone Number MARY JANE ARNOLD [address] [place] [address] * (ABNORMAL) CBC with auto differential (11/13/2017 8:53 AM CDT) WBC 15.6(H) 3.8 - 9.9 K/cumm [facility] Hgb 12.6 11.9 - 15.5 g/dL [facility] Hct 40.3 35.6 - 45.5 % [facility] Plt 302 150 - 400 K/cumm [facility] MPV 9.8 9.1 - 12.3 fL [facility] RBC 4.63 3.90 - 5.20 M/cumm [facility] MCV 87.0 81.3 - 96.4 fL [facility] MCH 27.2 27.1 - 33.3 pg [facility] MCHC 31.3(L) 32.3 - 35.7 g/dL [facility] RDW CV 15.1(H) 11.1 - 14.9 % [facility] RDW SD 47.8 35.7 - 48.1 fL [facility] NRBC abs 0.00 0.00 - 0.01 K/cumm [facility] Blood specimen (specimen) 11/13/2017 8:53 AM CDT 11/13/2017 9:17 AM CDT Narrative MARY JANE ARNOLD - 11/13/2017 9:25 AM CDT Yulisa Tilley INSTRUMENT CALIBRATOR LAB BLOOD ORDERABLES Final Res ult Performing Organization Address [facility]/ZIP Co de Phone Number MARY JANE ARNOLD [address] [place], [place] [id number] * (ABNORMAL) Basic metabolic panel (11/13/2017 8:53 AM CDT) Sodium 132(L) 135 - 145 mmol/L [facility] Potassium, pl 4.1 3.5 - 5.1 mmol/L [facility] Chloride 97(L) 100 - 114 mmol/L [facility] CO2 26 22 - 32 mmol/L [facility] Anion gap 13 8 - 16 mmol/L [facility] BUN 16 8 - 24 mg/dL [facility] Creatinine 0.76 0.60 - 1.30 mg/dL [facility] Glucose 331(H) 70 - 199 mg/dL [facility] Comment: Interpretive Data Fasting glucose >/= [...] 2017. Calcium 9.4 8.4 - 10.5 mg/dL [facility] Blood specimen (specimen) 11/13/2017 8:53 AM CDT 11/13/2017 9:17 AM CDT Narrative [facility] - 11/13/2017 9:34 AM CDT us Yulisa Tilley NP LAB BLOOD ORDERABLES Final Res ult [facility] [address] Department [place] [address] * (ABNORMAL) Magnesium (11/13/2017 8:53 AM CDT) Magnesium 1.5(L) 1.8 - 2.6 mg/dL [facility] Blood specimen (specimen) 11/13/2017 8:53 AM CDT 11/13/2017 9:17 AM CDT Narrative [facility] - 11/13/2017 9:34 AM CDT Yulisa Tilley NP LAB BLOOD ORDERABLES Final Res ult Performing Organization Address [facility] Co de Phone Number MARY JANE ARNOLD [address] [facility] [place] [address] * POCT glucose (11/13/2017 7:46 AM CDT) Glucose, POC 159 70 - 199 mg/dL [facility] Blood specimen (specimen) 11/13/2017 7:46 AM CDT 11/13/2017 7:46 AM CDT Narrative MARY JANE - 11/13/2017 7:47 AM CDT Zhen Carter MD LAB POCT ORDERABLES - DEVICE Final Result Performing Organization Address [facility] de Phone Number MARY JANE ARNOLD [address] [place] [address] * POCT glucose (11/13/2017 2:26 AM CDT) Glucose, POC 169 70 - 199 mg/dL [facility] Blood specimen (specimen) 11/13/2017 2:26 AM CDT 11/13/2017 2:26 AM CDT Narrative MARY JANE - 11/13/2017 2:54 AM CDT Zhen Carter MD LAB POCT ORDERABLES - DEVICE Final Result Performing Organization Address [facility] Co de Phone Number MARY JANE ARNOLD [address] [address] [facility] [place] [address] * POCT glucose (11/12/2017 9:50 PM CDT) Glucose, POC 143 70 - 199 mg/dL [facility] Blood specimen (specimen) 11/12/2017 9:50 PM CDT 11/12/2017 9:50 PM CDT Narrative [facility] - 11/12/2017 9:58 PM CDT Zhen Carter MD LAB POCT ORDERABLES - DEVICE Final Result Performing Organization Address [facility] Co de Phone Number [facility] [phone] [facility] [place] [address] * POCT glucose (11/12/2017 8:10 PM CDT) Glucose, POC 105 70 - 199 mg/dL [facility] Blood specimen (specimen) 11/12/2017 8:10 PM CDT 11/12/2017 8:10 PM CDT Narrative [facility] - 11/12/2017 8:12 PM CDT William Laguerre MD LAB POCT ORDERABLES - DEVICE Final Result Performing Organization Address [facility] Co de Phone Number [facility] [address] [address] [facility] [place] [address] * eGFR (11/12/2017 6:16 PM CDT) eGFR 95 mL/min/1.7 3 m2 [facility] Comment: Interpretive Data Reference Interval Normal ?>/= 90 mL/min/1.73m2 Mildly decreased* ? 60 - 89 mL/min/1.73m2 Mildly to moderately decreased ?45 - 59 mL/min/1.73m2 Moderately to severely decreased ??30 - 44 mL/min/1.73m2 Severely decreased ?15 - 29 mL/min/1.73m2 Kidney Failure ?< 15 ??mL/min/1.73m2 *Relative to young adult level If -Armenian multiply value by 1.16. Estimated glomerular filtration [...] was last reviewed 2015. Blood specimen (specimen) 11/12/2017 6:16 PM CDT 11/12/2017 6:22 PM CDT Narrative [facility] - 11/12/2017 6:42 PM CDT us Yulisa Tilley INSTRUMENT CALIBRATOR LAB BLOOD ORDERABLES Final Res ult MARY JANE [address] Department [place] [address] * (ABNORMAL) Differential, auto (11/12/2017 6:16 PM CDT) Neutrophil abs 10.1(H) 1.7 - 6.5 K/cumm [facility] Imm gran abs 0.1 0.0 - 0.1 K/cumm [facility] Lymphocyte abs 2.6 0.8 - 3.3 K/cumm [facility] Monocyte abs 1.2(H) 0.2 - 0.8 K/cumm [facility] Eosinophil abs 0.3 0.0 - 0.5 K/cumm [facility] Basophil abs 0.0 0.0 - 0.1 K/cumm [facility] Neutrophil pct 70.4 % [facility] Comment: Interpretive Data Percent cell count reference ranges are not reported, since discordance with absolute values may lead to misinterpretation of CBC data. Current Interpretive Data was last revised on 2017. Imm gran pct 0.6 % [facility] Comment: Interpretive Data Percent cell count reference ranges are not reported, since discordance with absolute values may lead to misinterpretation of CBC data. Current Interpretive Data was last revised on 2017. Lymphocyte pct 18.3 % [facility] Comment: Interpretive Data Percent cell count reference ranges are not reported, since discordance with absolute values may lead to misinterpretation of CBC data. Current Interpretive Data was last revised on 2017. Monocyte pct 8.2 % [facility] Comment: Interpretive Data Percent cell count reference ranges are not reported, since discordance with absolute values may lead to misinterpretation of CBC data. Current Interpretive Data was last revised on 2017. Eosinophil pct 2.2 % [facility] Comment: Interpretive Data Percent cell count reference ranges are not reported, since discordance with absolute values may lead to misinterpretation of CBC data. Current Interpretive Data was last revised on 2017. Basophil pct 0.3 % [facility] Comment: Interpretive Data Percent cell count reference ranges are not reported, since discordance with absolute values may lead to misinterpretation of CBC data. Current Interpretive Data was last revised on 2017. Blood specimen (specimen) 11/12/2017 6:16 PM CDT 11/12/2017 6:22 PM CDT [facility] - 11/12/2017 6:29 PM CDT Yulisa Tilely INSTRUMENT CALIBRATOR LAB BLOOD ORDERABLES Final Res ult Performing Organization Address [facility] Co de Phone Number [facility] [address] [address] Department [employer] [place] [address] * Beta-hydroxybutyrate (11/12/2017 6:16 PM CDT) Pathologist [facility] Beta-Hydroxybut yrate 0.10 0.00 - 0.40 mmol/L [facility] Blood specimen (specimen) 11/12/2017 6:16 PM CDT 11/12/2017 6:22 PM CDT [facility] - 11/12/2017 9:26 PM CDT Yulisa Tilley INSTRUMENT CALIBRATOR LAB BLOOD ORDERABLES Final Res ult MARY JANE [address] [address] Department [place] [address] * (ABNORMAL) CBC with auto differential (11/12/2017 6:16 PM CDT) WBC 14.4(H) 3.8 - 9.9 K/cumm [facility] Hgb 12.4 11.9 - 15.5 g/dL [facility] Hct 39.2 35.6 - 45.5 % [facility] Plt 290 150 - 400 K/cumm [facility] MPV 9.6 9.1 - 12.3 fL [facility] RBC 4.46 3.90 - 5.20 M/cumm [facility] MCV 87.9 81.3 - 96.4 fL [facility] MCH 27.8 27.1 - 33.3 pg [facility] MCHC 31.6(L) 32.3 - 35.7 g/dL [facility] RDW CV 15.2(H) 11.1 - 14.9 % [facility] RDW SD 49.1(H) 35.7 - 48.1 fL [facility] NRBC abs 0.00 0.00 - 0.01 K/cumm [facility] Blood specimen (specimen) 11/12/2017 6:16 PM CDT 11/12/2017 6:22 PM CDT Narrative [facility] - 11/12/2017 6:29 PM CDT Yulisa Tilley INSTRUMENT CALIBRATOR LAB BLOOD ORDERABLES Final Res ult Performing Organization Address [facility] de Phone Number MARY JANE ARNOLD [address] [address] [place] [address] * (ABNORMAL) Magnesium (11/12/2017 6:16 PM CDT) Magnesium 1.6(L) 1.8 - 2.6 mg/dL [facility] Blood specimen (specimen) 11/12/2017 6:16 PM CDT 11/12/2017 6:22 PM CDT Narrative [facility] - 11/12/2017 6:42 PM CDT Yulisa Tilley INSTRUMENT CALIBRATOR LAB BLOOD ORDERABLES Final Res ult MARY JANE ARNOLD [id number] [address] [facility] [employer] [address] * (ABNORMAL) Comprehensive metabolic panel (11/12/2017 6:16 PM CDT) Sodium 131(L) 135 - 145 mmol/L [facility] Potassium, pl 4.4 3.5 - 5.1 mmol/L [facility] Chloride 98(L) 100 - 114 mmol/L [facility] CO2 25 22 - 32 mmol/L [facility] Anion gap 12 8 - 16 mmol/L [facility] BUN 18 8 - 24 mg/dL [facility] Creatinine 0.66 0.60 - 1.30 mg/dL [facility] Glucose 246(H) 70 - 199 mg/dL [facility] Comment: [...] 2017. Calcium 9.2 8.4 - 10.5 mg/dL [facility] Bilirubin, total 0.50 0.10 - 1.30 mg/dL [facility] Protein, pl 6.8 6.0 - 8.3 g/dL [facility] Albumin 3.2 3.2 - 4.8 g/dL [facility] Alk phos 76 30 - 110 Units/L [facility] ALT 22 1 - 45 Units/L [facility] AST 18 7 - 40 Units/L [facility] Blood specimen (specimen) 11/12/2017 6:16 PM CDT 11/12/2017 6:22 PM CDT Narrative [facility] - 11/12/2017 6:42 PM CDT us Yulisa Tilley INSTRUMENT CALIBRATOR LAB BLOOD ORDERABLES Final Res ult [facility] [id number] [address] Department [place] [address] * (ABNORMAL) POCT glucose (11/12/2017 5:23 PM CDT) Glucose, POC 226(H) 70 - 199 mg/dL [facility] Blood specimen (specimen) 11/12/2017 5:23 PM CDT 11/12/2017 5:23 PM CDT Narrative [facility] - 11/12/2017 5:40 PM CDT William Laguerre MD LAB POCT ORDERABLES - DEVICE Final Result Performing Organization Address [facility] Co de Phone Number [facility] [id number] [address] [place] [address] * (ABNORMAL) POCT glucose (11/12/2017 12:28 PM CDT) Glucose, POC 211(H) 70 - 199 mg/dL [facility] Blood specimen (specimen) 11/12/2017 12:28 PM CDT 11/12/2017 12:28 PM CDT Narrative [facility] - 11/12/2017 12:34 PM CDT Leoncio Hawkins MD LAB POCT ORDERABLES - DEVICE Fi nal Result Performing Organization Address [facility] de Phone Number [facility] [address] [address] Department [place] [address] * (ABNORMAL) POCT glucose (11/12/2017 7:57 AM CDT) Glucose, POC 205(H) 70 - 199 mg/dL [facility] Blood specimen (specimen) 11/12/2017 7:57 AM CDT 11/12/2017 7:57 AM CDT Narrative [facility] - 11/12/2017 7:58 AM CDT Notinfile Unknown LAB POCT ORDERABLES - DEVICE F inal Result Performing Organization Address [facility] [place] [address] [address] Department [place] [address] * CT Chest PE Abdomen Pelvis W Contrast (11/12/2017 12:23 AM CDT) Anatomical Region Laterality Modality Body N/A Computed Tomogra phy 11/12/2017 9:16 AM CDT Impressions 11/12/2017 9:31 AM CDT IMPRESSION: No evidence of pulmonary embolism. ??No lung infiltrate. Hepatic steatosis. ??Prior cholecystectomy. Electronically signed by: Bruce Lake M.D. Narrative 11/12/2017 9:[address] CHEST ABDOMEN AND PELVIS WITH CONTRAST HISTORY: 17-year-old presented with dyspnea TECHNIQUE: Enhanced CT of the chest, abdomen and pelvis was performed following the insertion of 95 mL Optiray 350. FINDINGS: Lungs are well-aerated without infiltrate or focal consolidation. ??No pericardial or pleural effusion. ??No evidence pulmonary embolism. ??Thoracic aorta is normal caliber. ??No pericardial or pleural effusion. ??No mediastinal, hilar or axillary lymphadenopathy There are fatty change of the liver. ??The spleen, pancreas, adrenals appear unremarkable Gallbladder is surgically absent. ??Normal appendix. Kidneys of normal size. ??Subcentimeter cyst is in upper pole right kidney. ??The aorta is normal caliber. ??No bowel obstruction. Evidence of ventral abdominal wall hernia repair.. ??Anterior abdominal wall mesh is seen in place. ??Fluid-filled urinary bladder normal. ??Normal size uterus. ??No inguinal or pelvic lymphadenopathy Sclerosis of the iliac portion of the both SI joints suggestive of osteitis condensans ilei. Procedure Note Bruce Lake MD - 11/12/2017 CT CHEST ABDOMEN AND PELVIS WITH CONTRAST HISTORY: 17-year-old presented with dyspnea TECHNIQUE: Enhanced CT of the chest, abdomen and pelvis was performed following the insertion of 95 mL Optiray 350. FINDINGS: Lungs are well-aerated without infiltrate or focal consolidation. No pericardial or pleural effusion. No evidence pulmonary embolism. Thoracic aorta is normal caliber. No pericardial or pleural effusion. No mediastinal, hilar or axillary lymphadenopathy There are fatty change of the liver. The spleen, pancreas, adrenals appear unremarkable Gallbladder is surgically absent. Normal appendix. Kidneys of normal size. Subcentimeter cyst is in upper pole right kidney. The aorta is normal caliber. No bowel obstruction. Evidence of ventral abdominal wall hernia repair.. Anterior abdominal wall mesh is seen in place. Fluid-filled urinary bladder normal. Normal size uterus. No inguinal or pelvic lymphadenopathy Sclerosis of the iliac portion of the both SI joints suggestive of osteitis condensans ilei. IMPRESSION: IMPRESSION: No evidence of pulmonary embolism. No lung infiltrate. Hepatic steatosis. Prior cholecystectomy. Electronically signed by: Bruce Lake M.D. Enmanuel Dubon MD IMG CT PROCEDURES Final Res ult * (ABNORMAL) Urinalysis, microscopic only (11/11/2017 11:15 PM CDT) WBC, ur 0-5 0 - 5 /HPF [facility] RBC, ur 0-5 0 - 5 /HPF [facility] Mucous, ur Present(A) [facility] Urine, bladder 11/11/2017 11 :15 PM CDT 11/11/2017 11:19 PM CDT Narrative MARY JANE - 11/11/2017 11:33 PM CDT us Enmanuel Dubon MD LAB URINE ORDERABLES Final Result MARY JANE [id number] [address] Department [place] [address] * Blood culture Blood (11/11/2017 11:15 PM CDT) Report Final Report: No growth MARY JANE Comment:Testing performed by : [facility], [address] [facility], [place]., [address] Blood specimen (specimen) 11/11/2017 11:15 PM CDT 11/12/2017 3:02 AM CDT Narrative MARY JANE - 11/17/2017 7:00 AM CDT Blood cultures are incubated for five days on a continuously monitored blood culture system. ??The first report of a negative culture is issued within 24 hours of receipt of the specimen in the laboratory. ??Positive culture results are reported as soon as they are detected. ??For blood cultures with gram-positive cocci, a rapid molecular test for organism identification may be performed using the [employer] Nanosphere Gram Positive Blood Culture Assay. ??The Nanosphere assay detects microbial DNA in positive blood culture broth via hybridization of target DNA to capture oligonucleotides on a microarray. ??This assay has been cleared by the [place] Food and Drug Administration and its performance characteristics have been verified by the [facility]. Current Interpretive Data was last revised on 2013. us Enmanuel Dubon MD LAB MICROBIOLOGY - GENERAL ORDERABLES Final Result [facility] [id number] [address] Department [place] [address] * (ABNORMAL) Urinalysis reflex to microscopic and culture Urine, bladder (11/11/2017 11:15 PM CDT) Color, ur Yellow Yellow [facility] Clarity, ur Clear Clear [facility] Specific gravity, ur 1.016 1.010 - 1.025 [facility] pH, urine 5.0 [facility] Protein, ur ql Negative Negative [facility] Glucose, ur ql 3+(A) Negative [facility] Ketones, ur Negative Negative [facility] Bilirubin, ur Negative Negative [facility] Blood, ur 2+(A) Negative [facility] Urobilinogen, ur <2.0 <2.0 mg/dL [facility] Nitrite, ur Negative Negative [facility] Leukocyte esterase, ur Negative Negative [facility] Urine, bladder 11/11/2017 11 :15 PM CDT 11/11/2017 11:19 PM CDT Narrative [facility] - 11/11/2017 11:33 PM CDT ?? Urine pH is affected by diet, medications, systemic acid-base disturbances, and renal tubular function. ??pH may affect urinary stone formation. ??For example, urine pH below 6.0 may help reduce the tendency for calcium phosphate stones and pH greater than 6.0 may reduce the tendency for uric acid stone formation. Source: [facility] [employer]. Last revised 05-04-2017 Enmanuel Dubon MD LAB MICROBIOLOGY - GENERAL ORDERABLES Final Result Performing Organization Address [facility] Co de Phone Number MARY JANE ARNOLD [address] [address] Department [employer] [address] * Blood culture Blood (11/11/2017 11:00 PM CDT) Report Final Report: No growth MARY JANE ARNOLD Comment:Testing performed by : [facility], [address] [place]., [address] Blood specimen (specimen) 11/11/2017 11:00 PM CDT 11/12/2017 2:57 AM CDT Narrative MARY JANE ARNOLD - 11/17/2017 7:00 AM CDT From a different site than #1. Blood cultures are incubated for five days on a continuously monitored blood culture system. ??The first report of a negative culture is issued within 24 hours of receipt of the specimen in the laboratory. ??Positive culture results are reported as soon as they are detected. ??For blood cultures with gram-positive cocci, a rapid molecular test for organism identification may be performed using the [employer] Nanosphere Gram Positive Blood Culture Assay. ??The Nanosphere assay detects microbial DNA in positive blood culture broth via hybridization of target DNA to capture oligonucleotides on a microarray. ??This assay has been cleared by the [place] Food and Drug Administration and its performance characteristics have been verified by the [facility]. Current Interpretive Data was last revised on 2013. Enmanuel Dubon MD LAB MICROBIOLOGY - GENERAL ORDERABLES Final Result Performing Organization Address City/[facility]/ZIP Co de Phone Number CBPUJA ARNOLD [address] [address] [place] [address] * ECG 12 lead (11/11/2017 9:47 PM CDT) Patient age 62 years [facility] Interpretation Text SINUS RHYTHM WITH SHORT WV INTERVALBORDERLINE ECGINTERPRETATION BASED ON A DEFAULT AGE OF 41 YEARSPREVIOUS TRACIN11/02/2017 08.56 [facility] Comment:Physician Interprete r Dr. Suleiman Hdz M.D. Ventricular Rate EKG/Min 94 /min [facility] P Wave Duration 109 ms [facility] QRS-Interval (MSEC) 81 ms [facility] WV-Interval (MSEC) 119 ms [facility] QT Interval 348 ms [facility] QTc 407 ms [facility] QTC Interval ms [facility] P [place] 12 deg [facility] QRS [place] 18 deg [facility] T [place] 54 deg [facility] 11/11/2017 9:47 PM CDT us Enmanuel Dubon MD ECG ORDERABLES Final Resul t Performing Organization Address City/[facility]/ZIP Co de Phone Number [facility] * Lipase (11/11/2017 9:40 PM CDT) Lipase 44 20 - 50 Units/L [facility] Blood specimen (specimen) 11/11/2017 9:40 PM CDT 11/11/2017 10:56 PM CDT Narrative [facility] - 11/11/2017 11:14 PM CDT us Enmanuel Dubon MD LAB BLOOD ORDERABLES Final Result Performing Organization Address [facility] Co de Phone Number MARY JANE ARNOLD [phone] [address] Department [place] [address] * Amylase (11/11/2017 9:40 PM CDT) Amylase 61 35 - 100 Units/L [facility] Blood specimen (specimen) 11/11/2017 9:40 PM CDT 11/11/2017 10:56 PM CDT Narrative [facility] - 11/11/2017 11:14 PM CDT us Enmanuel Dubon MD LAB BLOOD ORDERABLES Final Result Performing Organization Address City/[facility] Co de Phone Number MARY JANE ARNOLD [address] [address] Department [place] [address] * eGFR (11/11/2017 9:40 PM CDT) Pathologist [facility] eGFR 80 mL/min/1.7 3 m2 [facility] Comment: Interpretive Data Reference Interval Normal ?>/= 90 mL/min/1.73m2 Mildly decreased* ? 60 - 89 mL/min/1.73m2 Mildly to moderately decreased ?45 - 59 mL/min/1.73m2 Moderately to severely decreased ??30 - 44 mL/min/1.73m2 Severely decreased ?15 - 29 mL/min/1.73m2 Kidney Failure ?< 15 ??mL/min/1.73m2 *Relative to young adult level If -Armenian multiply value by 1.16. Estimated glomerular filtration [...] was last reviewed 2015. Blood specimen (specimen) 11/11/2017 9:40 PM CDT 11/11/2017 9:54 PM CDT Narrative [facility] - 11/11/2017 10:15 PM CDT us Devonte Cruz MD LAB BLOOD ORDERABLES F inal Result [facility] [id number] [address] Department [place] [address] * (ABNORMAL) Differential, auto (11/11/2017 9:40 PM CDT) Neutrophil abs 13.8(H) 1.7 - 6.5 K/cumm [facility] Imm gran abs 0.1 0.0 - 0.1 K/cumm [facility] Lymphocyte abs 3.0 0.8 - 3.3 K/cumm [facility] Monocyte abs 1.5(H) 0.2 - 0.8 K/cumm [facility] Eosinophil abs 0.3 0.0 - 0.5 K/cumm [facility] Basophil abs 0.0 0.0 - 0.1 K/cumm [facility] Neutrophil pct 73.7 % [facility] Comment: Interpretive Data Percent cell count reference ranges are not reported, since discordance with absolute values may lead to misinterpretation of CBC data. Current Interpretive Data was last revised on 2017. Imm gran pct 0.7 % [facility] Comment: Interpretive Data Percent cell count reference ranges are not reported, since discordance with absolute values may lead to misinterpretation of CBC data. Current Interpretive Data was last revised on 2017. Lymphocyte pct 16.2 % [facility] Comment: Interpretive Data Percent cell count reference ranges are not reported, since discordance with absolute values may lead to misinterpretation of CBC data. Current Interpretive Data was last revised on 2017. Monocyte pct 7.8 % [facility] Comment: Interpretive Data Percent cell count reference ranges are not reported, since discordance with absolute values may lead to misinterpretation of CBC data. Current Interpretive Data was last revised on 2017. Eosinophil pct 1.4 % [facility] Comment: Interpretive Data Percent cell count reference ranges are not reported, since discordance with absolute values may lead to misinterpretation of CBC data. Current Interpretive Data was last revised on 2017. Basophil pct 0.2 % [facility] Comment: Interpretive Data Percent cell count reference ranges are not reported, since discordance with absolute values may lead to misinterpretation of CBC data. Current Interpretive Data was last revised on 2017. Blood specimen (specimen) 11/11/2017 9:40 PM CDT 11/11/2017 9:54 PM CDT [facility] - 11/11/2017 10:08 PM CDT Enmanuel Dubon MD LAB BLOOD ORDERABLES Final Result Performing Organization Address [facility]/ZIP Co de Phone Number [facility] [address] [address] [facility] [place] [address] * Troponin I (11/11/2017 9:40 PM CDT) Pathologist [facility] Troponin I <0.03 0.00 - 0.14 ng/mL [facility] Comment: Interpretive Data Normal: ? 0.00 - 0.14 ng/mL Indeterminate: ?0.15 - 0.50 ng/mL MS / Cardiac Muscle Damage: ? >0.50 ng/mL Current interpretive data was last reviewed 2015 Blood specimen (specimen) 11/11/2017 9:40 PM CDT 11/11/2017 9:54 PM CDT Narrative [facility] 11/11/2017 10:21 PM CDT Enmanuel Dubon MD LAB BLOOD ORDERABLES Final Result Performing Organization Address [facility] Co de Phone Number [facility] [address] [address] [facility] [place] [address] * B-type natriuretic peptide (11/11/2017 9:40 PM CDT) [facility] B-Type Natriuretic Peptide (BNP) 22 0 - 100 pg/mL [facility] Blood specimen (specimen) 11/11/2017 9:40 PM CDT 11/11/2017 9:54 PM CDT Narrative [facility] 11/11/2017 10:57 PM CDT Enmanuel Dubon MD LAB BLOOD ORDERABLES Final Result Performing Organization Address City/[facility]/ZIP Co de Phone Number [facility] [id number] [address] [place], [place] [id number] * (ABNORMAL) Comprehensive metabolic panel (11/11/2017 9:40 PM CDT) Sodium 132(L) 135 - 145 mmol/L [facility] Potassium, pl 4.7 3.5 - 5.1 mmol/L [facility] Chloride 100 100 - 114 mmol/L [facility] CO2 24 22 - 32 mmol/L [facility] Anion gap 13 8 - 16 mmol/L [facility] BUN 30(H) 8 - 24 mg/dL [facility] Creatinine 0.80 0.60 - 1.30 mg/dL [facility] Glucose 321(H) 70 - 199 mg/dL [facility] Comment: [...] 2017. Calcium 9.2 8.4 - 10.5 mg/dL [facility] Bilirubin, total 0.50 0.10 - 1.30 mg/dL [facility] Protein, pl 6.2 6.0 - 8.3 g/dL [facility] Albumin 3.1(L) 3.2 - 4.8 g/dL [facility] Alk phos 74 30 - 110 Units/L [facility] ALT 22 1 - 45 Units/L [facility] AST 19 7 - 40 Units/L [facility] Blood specimen (specimen) 11/11/2017 9:40 PM CDT 11/11/2017 9:54 PM CDT Narrative [facility] - 11/11/2017 10:15 PM CDT us Enmanuel Dubon MD LAB BLOOD ORDERABLES Final Result [facility] [address] [address] Department [place] [address] * (ABNORMAL) CBC with auto differential (11/11/2017 9:40 PM CDT) WBC 18.7(H) 3.8 - 9.9 K/cumm [facility] Hgb 12.4 11.9 - 15.5 g/dL [facility] Hct 38.8 35.6 - 45.5 % [facility] Plt 316 150 - 400 K/cumm [facility] MPV 9.7 9.1 - 12.3 fL [facility] RBC 4.47 3.90 - 5.20 M/cumm [facility] MCV 86.8 81.3 - 96.4 fL [facility] MCH 27.7 27.1 - 33.3 pg [facility] MCHC 32.0(L) 32.3 - 35.7 g/dL [facility] RDW CV 15.2(H) 11.1 - 14.9 % [facility] RDW SD 48.5(H) 35.7 - 48.1 fL [facility] NRBC abs 0.00 0.00 - 0.01 K/cumm [facility] Blood specimen (specimen) 11/11/2017 9:40 PM CDT 11/11/2017 9:54 PM CDT Narrative [facility] - 11/11/2017 10:08 PM CDT us Enmanuel Dubon MD LAB BLOOD ORDERABLES Final Result [facility] [address] [facility] Department [place] [address] * (ABNORMAL) POCT glucose (11/11/2017 9:02 PM CDT) Glucose, POC 299(H) 70 - 199 mg/dL [facility] Glucose comment 1 RN/MD Notified [facility] Blood specimen (specimen) 11/11/2017 9:02 PM CDT 11/11/2017 9:02 PM CDT Narrative [facility] - 11/11/2017 9:16 PM CDT us Notinfile Unknown LAB POCT ORDERABLES - DEVICE F inal Result MARY JANE [address] [address] Department [place] [address] documented in this encounter Visit Diagnoses Diagnosis Uncontrolled type 2 diabetes mellitus with hyperglycemia, with long-term current use of insulin (HCC)- Primary Diabetes mellitus due to underlying condition with hyperosmolarity without coma, unspecified whether manager terminal insulin use (HCC) Leukocytosis, unspecified type Restless legs syndrome Restless legs syndrome (RLS) Generalized weakness Dyspnea Other dyspnea and respiratory abnormality Nausea and vomiting Nausea with vomiting Hyponatremia Hyposmolality and/or hyponatremia Essential hypertension Unspecified essential hypertension History of pulmonary embolism Personal history of venous thrombosis and embolism Chronic anticoagulation Encounter for long-term (current) use of anticoagulants 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 Anxiety and depression LUL (obstructive sleep apnea) Obstructive sleep apnea (adult) (pediatric) documented in this encounter Administered Medications Inactive Administered Medications - up to 3 most recent administrations Medication Order MAR Action Action Date Dose Rate Site cyclobenzaprine (FLEXERIL) tablet 10 mg 10 mg, oral, Once, On Mon11/13/17 at 2200, For 1 dose Given 11/13/2017 10:21 PM CDT 10 mg exemestane (AROMASIN) tablet 25 mg 25 mg, oral, Daily after dinner, First dose on Mon11/12/17 at 1830 Given 11/13/2017 7:04 PM CDT 25 mg Given 11/12/2017 9:53 PM CDT 25 mg furosemide (LASIX) tablet 20 mg 20 mg, oral, Daily, First dose (after last modification) on Mon11/13/17 at 0900 Given 11/14/2017 8:03 AM CDT 20 mg Given 11/13/2017 9:10 AM CDT 20 mg furosemide (LASIX) tablet 40 mg 40 mg, oral, Daily, First dose on Mon11/12/17 at 1715 Given 11/12/2017 6:04 PM CDT 40 mg HYDROcodone-acetaminophen (NORCO) 10-325 mg per tablet 1 tablet 1 tablet, oral, Every 4 hours PRN, 2nd line for pain, Starting on Mon11/13/17 at 1633, Indications: PainIndications:Pain Given 11/14/2017 8:44 AM CDT 1 tablet Given 11/14/2017 4:34 AM CDT 1 tablet Given 11/13/2017 8:58 PM CDT 1 tablet HYDROcodone-acetaminophen (NORCO) 5-325 mg per tablet 1 tablet 1 tablet, oral, 3 times daily PRN, 1st line for pain, Starting on 11/12/17 at 1642, Indications: PainIndications:Pain Given 11/13/2017 12:11 PM CDT 1 t ablet Given 11/13/2017 3:51 AM CDT 1 tablet HYDROmorphone (DILAUDID) injection 1 mg 1 mg, intravenous, Once, On 11/11/17 at 2319, For 1 dose Given 11/11/2017 11:25 PM CDT 1 mg HYDROmorphone (DILAUDID) injection 1 mg 1 mg, intravenous, Once, On 11/12/17 at 0138, For 1 dose Given 11/12/2017 1:42 AM CDT 1 mg HYDROmorphone (DILAUDID) injection 1 mg 1 mg, intravenous, Once, On 11/12/17 at 0635, For 1 dose Given 11/12/2017 6:48 AM CDT 1 mg HYDROmorphone (DILAUDID) injection 1 mg 1 mg, intravenous, Once, On 11/12/17 at 1800, For 1 dose Given 11/12/2017 6:00 PM CDT 1 mg insulin glargine (LANTUS) injection 30 Units 30 Units, subcutaneous, Nightly, First dose on 11/12/17 at 2100, Do not mix with other insulins Given 11/12/2017 9:54 PM CDT 30 Units Left Lower Abdomen insulin glargine (LANTUS) injection 30 Units 30 Units, subcutaneous, 2 times daily, First dose (after last modification) on Mon11/13/17 at 1330, Do not mix with other insulins Given 11/14/2017 9:59 AM CDT 30 Units Left Lower Abdomen Given 11/13/2017 9:05 PM CDT 30 Units Le ft Upper Abdomen Given 11/13/2017 1:08 PM CDT 30 Units Le ft Lower Abdomen insulin lispro (HumaLOG) injection 1-3 Units 1-3 Units, subcutaneous, Nightly, First dose on 11/12/17 at 2100, Blood Sugar Mid Dose PM - PO patients 175 or less No insulin 176 - 200 1 unit 201 - 250 2 units 251 - 299 3 units Greater than 299 Call MD for hyperglycemia management instructions Do NOT hold for NPO status., Indications: Diabetes MellitusIndications:Diabetes Mellitus Given 11/13/2017 9:08 PM CDT 2 Units Left Upper Abdomen insulin lispro (HumaLOG) injection 1-3 Units 1-3 Units, subcutaneous, Every 24 hours, First dose on 11/13/17 at 0200, lood Sugar Mid Dose 02:00 - PO patients 175 or less No insulin 176 - 200 1 unit 201 - 250 2 units 251 - 299 3 units Greater than 299 Call MD for hyperglycemia management instructions Do NOT hold for NPO status., Indications: Diabetes MellitusIndications:Diabetes Mellitus Given 11/14/2017 4:35 AM CDT 1 Units Right Upper Arm insulin lispro (HumaLOG) injection 1-5 Units 1-5 Units, subcutaneous, 3 times daily with meals, First dose on 11/12/17 at 1200, Blood Sugar Mid Dose meal time - PO patients 139 or less No insulin 140 - 175 1 unit 176 - 200 2 unit 201 - 250 3 units 251 - 299 5 units Greater than 299 Call MD for hyperglycemia management instructions Do NOT hold for NPO status., Indications: Diabetes MellitusIndications:Diabetes Mellitus Given 11/14/2017 7:58 AM CDT 1 Units Right Lower Abdomen Given 11/13/2017 5:39 PM CDT 1 Units Le ft Upper Abdomen Given 11/13/2017 7:47 AM CDT 1 Units Le ft Lower Abdomen insulin lispro (HumaLOG) injection 15 Units 15 Units, subcutaneous, 3 times daily with meals, First dose on 11/12/17 at 1800, Administer pre-meal doses when pts food tray arrives in room. Do not administer pre-meal doses to NPO patients. Given 11/14/2017 12:45 PM CDT 15 Units Left Upper Abdomen Given 11/14/2017 7:57 AM CDT 15 Units Le ft Upper Abdomen Given 11/13/2017 5:39 PM CDT 15 Units Le ft Upper Abdomen ioversol (OPTIRAY 350) syringe syringe 100 mL 100 mL, intravenous, Once in imaging, contrast, Starting on 11/11/17 at 2346, For 1 dose Given 11/12/2017 12:25 AM CDT 95 mL Lactated Ringer's (LR) infusion 125 mL/hr, intravenous, Continuous, Starting on 11/12/17 at 1015 New Bag 11/12/2017 11:45 AM CDT 125 mL/hr 125 mL/hr lisinopril (PRINIVIL,ZESTRIL) tablet 20 mg 20 mg, oral, Daily, First dose on 11/12/17 at 1715 Given 11/14/2017 9:58 AM CDT 20 mg Given 11/13/2017 9:10 AM CDT 20 mg Given 11/12/2017 6:04 PM CDT 20 mg ondansetron ODT (ZOFRAN-ODT) disintegrating tablet 4 mg 4 mg, oral, Once, On 11/11/17 at 2323, For 1 dose Given 11/11/2017 11:25 PM CDT 4 mg oxybutynin (DITROPAN) tablet 5 mg 5 mg, oral, 2 times daily, First dose on 11/12/17 at 2100 Given 11/14/2017 8:02 AM CDT 5 mg Given 11/13/2017 8:58 PM CDT 5 mg Given 11/13/2017 9:10 AM CDT 5 mg prochlorperazine (COMPAZINE) injection 5 mg 5 mg, intravenous, Every 6 hours PRN, nausea, vomiting, Starting on 11/12/17 at 1724 Given 11/13/2017 9:43 PM CDT 5 mg Given 11/12/2017 6:00 PM CDT 5 mg rivaroxaban (XARELTO) tablet 20 mg 20 mg, oral, Daily after dinner, First dose on 11/12/17 at 1830, Administer doses greater than or equal to 15 mg/day with food; doses of 10 mg/day may be administered without regard to meals. If on heparin infusion, discontinue heparin infusion upon first administration of rivaroxaban., Indications: Venous ThrombosisIndications:Venous Thrombosis Given 11/13/2017 7:04 PM CDT 20 m g Given 11/12/2017 6:04 PM CDT 20 mg rOPINIRole (REQUIP) tablet 5 mg 5 mg, oral, Nightly, First dose on 11/12/17 at 2100 Given 11/13/2017 8:59 PM CDT 5 mg Given 11/12/2017 9:53 PM CDT 5 mg sodium chloride 0.9% bolus 1,000 mL 1,000 mL, intravenous, at 1,000 mL/hr, Administer over 1 Hours, Once, On 11/12/17 at 0125, For 1 dose New Bag 11/12/2017 1:33 AM CDT 1,000 mL 1000 mL/hr documented in this encounter Discontinued Medications Medication Sig Discontinue Reason Start Date End Da te albuterol HFA (PROVENTIL HFA,VENTOLIN HFA,PROAIR HFA) 90 mcg/actuation inhalerIndications:Br onchospasm Prevention Inhale 2 puffs every 4 (four) hours as needed for wheezing. Discontinued by another clinician 10/31/2017 11/12/2017 cyclobenzaprine (FLEXERIL) 5 mg tablet Take 1 tablet (5 mg total) by mouth 3 (three) times a day as needed for muscle spasms for up to 30 doses. Error 10/23/2017 11/12/2017 blood glucose diagnostic strip Please check your finger sticks 4 times a day Error 11/06/2017 11/12/2017 fluticasone (FLONASE) 50 mcg/actuation nasal spray Administer 1 spray into each nostril 2 (two) times a day. Discontinued by another clinician 10/31/2017 11/12/2017 gabapentin (NEURONTIN) 100 mg capsule Take 1 capsule (100 mg total) by mouth 3 (three) times a day. Discontinued by another clinician 10/31/2017 11/12/2017 insulin lispro (HumaLOG) 100 unit/mL injection Inject 15 Units under the skin 3 (three) times a day with meals. Discontinued by another clinician 11/06/2017 11/12/2017 insulin lispro (HumaLOG) 100 unit/mL injectionIndications: Diabetes Mellitus Inject 3-12 Units under the skin 5 (five) times a day (with meals, nightly, and 2 AM). Discontinued by another clinician 11/06/2017 11/12/2017 sitaGLIPtin-metformin (JANUMET) 50-1,000 mg per tablet Take 1 tablet by mouth 2 (two) times a day with meals. Stop Taking at Discharge 11/14/2017 documented as of this encounter Historical Medications * This list may reflect changes made after this encounter. furosemide (LASIX) 40 mg tablet Take 40 mg by mouth daily. 12/12/2017 sitaGLIPtin-metfo rmin (JANUMET) 50-1,000 mg per tablet Take 1 tablet by mouth 2 (two) times a day with meals. 11/14/2017 added in this encounter Active and Recently Administered Medications Times are shown in CDT. Scheduled Medication Order 11/12/2017 11/13/2017 11/14/2017 cyclobenzaprine (FLEXERIL) tablet 10 mg (COMPLETED) 10 mg, oral, Once, On Mon11/13/17 at 2200, For 1 dose 2221 (Given - Provider: Lachelle Fletcher RN) exemestane (AROMASIN) tablet 25 mg 25 mg, oral, Daily after dinner, First dose on 11/12/17 at 1830 2153 (Given - Provider: Kalen Frederick RN) 1904 (Given - Provider: Rosa Nava RN) furosemide (LASIX) tablet 20 mg 20 mg, oral, Daily, First dose (after last modification) on Mon11/13/17 at 0900 0910 (Given - Provider: Rosa Nava RN) 0803 (Given - Provider: Rosa Nava RN) furosemide (LASIX) tablet 40 mg (CANCELED) 40 mg, oral, Daily, First dose on Mon11/12/17 at 1715 1804 (Given - Provider: Cecilia Aranda RN) HYDROmorphone (DILAUDID) injection 1 mg (COMPLETED) 1 mg, intravenous, Once, On Mon11/12/17 at 0138, For 1 dose 0142 (Given - Provider: Radha Vivar RN) HYDROmorphone (DILAUDID) injection 1 mg (COMPLETED) 1 mg, intravenous, Once, On 11/12/17 at 0635, For 1 dose 0648 (Given - Provider: Veronica Deluna RN) HYDROmorphone (DILAUDID) injection 1 mg (COMPLETED) 1 mg, intravenous, Once, On Mon11/12/17 at 1800, For 1 dose 1800 (Given - Provider: Cecilia Aranda RN) insulin glargine (LANTUS) injection 30 Units (CANCELED) 30 Units, subcutaneous, Nightly, First dose on 11/12/17 at 2100, Do not mix with other insulins 2153 (Given - Provider: Kalen Frederick RN) insulin glargine (LANTUS) injection 30 Units 30 Units, subcutaneous, 2 times daily, First dose (after last modification) on Mon11/13/17 at 1330, Do not mix with other insulins 1308 (Given - Provider: Rosa Nava RN)2105 (Given - Provider: Lachelle Fletcher RN) 0959 (Given - Provider: Rosa Nava RN) insulin lispro (HumaLOG) injection 1-3 Units 1-3 Units, subcutaneous, Nightly, First dose on 11/12/17 at 2100, Blood Sugar Mid Dose PM - PO patients 175 or less No insulin 176 - 200 1 unit 201 - 250 2 units 251 - 299 3 units Greater than 299 Call MD for hyperglycemia management instructions Do NOT hold for NPO status., Indications: Diabetes Mellitus 2151 (Not Given - Provider: Kalen Fredeirck RN - Reason: Order parameters not met) 2107 (Given - Provider: Lachelle Fletcher RN) insulin lispro (HumaLOG) injection 1-3 Units 1-3 Units, subcutaneous, Every 24 hours, First dose on Mon11/13/17 at 0200, lood Sugar Mid Dose 02:00 - PO patients 175 or less No insulin 176 - 200 1 unit 201 - 250 2 units 251 - 299 3 units Greater than 299 Call MD for hyperglycemia management instructions Do NOT hold for NPO status., Indications: Diabetes Mellitus 0226 (Not Given - Provider: Kalen Frederick RN - Reason: Order parameters not met) 0435 (Given - Provider: Lachelle Fletcher RN - Comment: accucheck 182) insulin lispro (HumaLOG) injection 1-5 Units 1-5 Units, subcutaneous, 3 times daily with meals, First dose on Mon11/12/17 at 1200, Blood Sugar Mid Dose meal time - PO patients 139 or less No insulin 140 - 175 1 unit 176 - 200 2 unit 201 - 250 3 units 251 - 299 5 units Greater than 299 Call MD for hyperglycemia management instructions Do NOT hold for NPO status., Indications: Diabetes Mellitus 1258 (Given - Provider: Cecilia Aranda RN)1801 (Given - Provider: Cecilia Aranda RN) 0747 (Given - Provider: Rosa Nava RN)1239 (Not Given - Provider: Rosa Nava RN - Reason: Order parameters not met)1739 (Given - Provider: Rosa Nava RN) 0758 (Given - Provider: Rosa Nava RN)1246 (Not Given - Provider: Rosa Nava RN - Reason: Order parameters not met) insulin lispro (HumaLOG) injection 15 Units 15 Units, subcutaneous, 3 times daily with meals, First dose on 11/12/17 at 1800, Administer pre-meal doses when pts food tray arrives in room. Do not administer pre-meal doses to NPO patients. 1800 (Given - Provider: Cecilia Aranda RN) 0747 (Given - Provider: Rosa Nava RN)1238 (Given - Provider: Rosa Nava RN)1739 (Given - Provider: Rosa Nava RN) 0757 (Given - Provider: Rosa Nava RN)1245 (Given - Provider: Rosa Nava RN) lisinopril (PRINIVIL,ZESTRIL) tablet 20 mg 20 mg, oral, Daily, First dose on 11/12/17 at 1715 1804 (Given - Provider: Cecilia Aranda RN) 0910 (Given - Provider: Rosa Nava RN) 0958 (Given - Provider: Rosa Nava RN) oxybutynin (DITROPAN) tablet 5 mg 5 mg, oral, 2 times daily, First dose on 11/12/17 at 2100 2154 (Given - Provider: Kalen Frederick RN) 0910 (Given - Provider: Rosa Nava RN)2058 (Given - Provider: Lachelle Fletcher RN) 0802 (Given - Provider: Rosa Nava RN) rivaroxaban (XARELTO) tablet 20 mg 20 mg, oral, Daily after dinner, First dose on 11/12/17 at 1830, Administer doses greater than or equal to 15 mg/day with food; doses of 10 mg/day may be administered without regard to meals. If on heparin infusion, discontinue heparin infusion upon first administration of rivaroxaban., Indications: Venous Thrombosis 180 (Given - Provider: Cecilia Aranda RN) 190 (Given - Provider: Rosa Nava, NURIS) rOPINIRole (REQUIP) tablet 5 mg 5 mg, oral, Nightly, First dose on 11/12/17 at 2100 2153 (Given - Provider: Kalen Frederikc, NURIS) 2059 (Given - Provider: Lachelle Fletcher, NURIS) sodium chloride 0.9% bolus 1,000 mL (COMPLETED) 1,000 mL, intravenous, at 1,000 mL/hr, Administer over 1 Hours, Once, On Mon11/12/17 at 0125, For 1 dose 0133 (New Bag - Provider: Radha Vivar, NURIS)0233 (Stopped - Provider: Radha Vivar, RN) Continuous Medication Order 11/12/2017 11/13/2017 11/14/2017 Lactated Ringer's (LR) infusion (CANCELED) 125 mL/hr, intravenous, Continuous, Starting on 11/12/17 at 1015 1145 (New Bag - Provider: Cecilia Aranda RN)1728 (Stopped - Provider: Cecilia Aranda RN) PRN Medication Order 11/12/2017 11/13/2017 11/14/2017 dextrose 50% (concentrated solution) CONCENTRATED solution 25 g 25 g, intravenous, Every 15 min PRN, low blood sugar, blood glucose less than 70 mg/dL, Starting on Mon11/12/17 at 0938, If patient is NPO or unresponsive, give dextrose 50% IV Push over 2 minutes., Indications: Hypoglycemia dextrose oral liquid liquid 15 g 15 g, oral, Every 15 min PRN, low blood sugar, blood glucose less than 70 mg/dL, Starting on 11/12/17 at 0938, If patient is alert and able to eat/drink, give 15 gram glucose or one juice (4 fluid ounces) NOT ORANGE JUICE glucagon injection 1 mg 1 mg, intramuscular, Every 30 min PRN, low blood sugar, blood glucose less than 70 mg/dL, Starting on 11/12/17 at 0938, If patient has no IV access and not alert, given Glucagon IM then follow with either oral glucose or IV dextrose treatment., Indications: Hypoglycemia HYDROcodone-acetaminoph en (NORCO) 10-325 mg per tablet 1 tablet 1 tablet, oral, Every 4 hours PRN, 2nd line for pain, Starting on 11/13/17 at 1633, Indications: Pain 1648 (Given - Provider: Rosa Nava, NURIS)2058 (Given - Provider: Lachelle Fletcher RN) 0434 (Given - Provider: Lachelle Fletcher RN)0844 (Given - Provider: Rosa Nava RN) HYDROcodone-acetaminoph en (NORCO) 5-325 mg per tablet 1 tablet 1 tablet, oral, 3 times daily PRN, 1st line for pain, Starting on 11/12/17 at 1642, Indications: Pain 0351 (Given - Provider: Kalen Frederick RN)1211 (Given - Provider: Rosa Nava RN)1651 ([facility] - Provider: Rosa Nava RN) ioversol (OPTIRAY 350) syringe syringe 100 mL (COMPLETED) 100 mL, intravenous, Once in imaging, contrast, Starting on 11/11/17 at 2346, For 1 dose 0025 (Given - Provider: Semaj Tamayo, R-RT) polyethylene glycol (MIRALAX) packet 17 g 17 g, oral, Daily PRN, constipation, Starting on 11/12/17 at 1639 prochlorperazine (COMPAZINE) injection 5 mg 5 mg, intravenous, Every 6 hours PRN, nausea, vomiting, Starting on 11/12/17 at 1724 1800 (Given - Provider: Cecilia Aranda RN) 2143 (Given - Provider: Lachelle Fletcher RN) documented in this encounter Orders Medications Ordered That Tyler ht Not Have Been Administered Count Last Ordered Date First Ordered Date dextrose 50% (concentrated s olution) CONCENTRATED solution 25 g 1 11/12/2017 dextrose oral liquid liquid 15 g 1 11/13/19 18 glucagon injection 1 mg 1 11/12/2017 polyethylene glycol (MIRALAX) packet 17 g 11/12/2017 ondansetron (ZOFRAN) injection 4 mg 1 11/11 Lab Orders Without Results Count Last Ordered D ate First Ordered Date POCT GLUCOSE DEVICE 3 11/14/2017 11/12/19 18 Nursing Count Last Ordered Date First Orde red Date CARDIAC OUTPUT MONITORING 1 11/11/2017 VITAL SIGNS 2 11/11/2017 IV Count Last Ordered Date First Orde red Date SALINE LOCK IV 1 11/11/2017 Admission Count Last Ordered Date First Orde red Date ASSIGN PATIENT STATUS 1 11/12/2017 CORE MEASURES Count Last Ordered Date First Ord ered Date REASON FOR NO VTE PROPHYLAXIS AT ADMISSION 1 11/12/2017 ADT Patient Update Count Last Ordered Date Firs t Ordered Date ED IP DECISION TO ADMIT 1 11/12/2017 documented in this encounter Care Teams Bag Bundler Relationship Specialty Start Date End Date Justen Gale MD [address] [address] PCP - General 10/09/17 Liu Jerez MD Consulting Physician Gastroenterology 07/28/17 [place] [address] [facility] [address] [place] [address] Consulting Physician Pulmonary Disease 08/03/17 Khris Arthur MD [address] [facility] [address] [place] [address] Medical Oncologist/Special Procedure Tech Medical Oncology 10/23/17 [place] [address] [facility] [address] [place] [address] Surgeon Orthopedic Surgery 10/23/17 [place] [address] [facility] [address] [place] [address] Consulting Physician Pain Management 10/23/17 documented as of this encounter
--- OUTSIDE RECORDS SUMMARY | 2024-04-26 04:27 | XMS_ITS | Encounter Summary ---
Author Organization [facility] Healthcare Address [address] [place] [address] Care Team Providers Care Specialized Developer Name Role Phone Liu Jerez MD Unavailable Albert Corbin MD Unavailable Justen Gale MD Primary Care Provider Khris Arthur MD Unavailable [phone] Ko Melendez MD Unavailable [phone] John Paul Moyer MD Unavailable [phone] Encounter Details Date Type Department Care Team (Latest Contact Info) Description 10/31/2017 12:16 PM CDT - 10/31/2017 11:59 PM CDT Hospital Encounter [facility] Diagnostic Imaging [address] [place] [address] Discharge Disposition: Discharge to home [...] on file 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 0 10/31/2017 8 guaiFENesin-codeine (GUAITUSS AC) liquid 100-10 mg/5 mL Take 5 mL by mouth. 08/13/2017 8 HYDROcodone-acetami nophen (NORCO) 5-325 mg per tablet Take 1 tablet by mouth every 8 (eight) hours as needed for pain. 20 tablet 10/31/2017 8 HYDROcodone-acetami nophen (NORCO) 5-325 mg per tabletIndications:P ain Take 1 tablet by mouth every 30 minutes as needed. 09/14/2017 8 lisinopril (PRINIVIL,ZESTRIL) 20 mg tablet take [...] every day at bedtime 0 05/11/2012 8 sitaGLIPtin-metform in (JANUMET) 50-1,000 mg per tablet Take 1 tablet by mouth daily. 8 documented as of this encounter Discharge Disposition Disposition Code Departure Means Destination Discharge to home or self care documented in this encounter Plan of Treatment Not on file documented as of this encounter Procedures Procedure Name Priority Date/Time Associated Diagnosis Comments XR SPINE LUMBAR 2 OR 3 VIEWS IP Routine 10/31/2017 12:51 PM CDT documented in this encounter Results * XR Spine Lumbar 2 or 3 Views (10/31/2017 12:51 PM CDT) Narrative RAD_PACS_CH - 10/31/2017 12:51 PM CDT The images from this study are not interpreted by Radiology. ??Please refer to the physician's procedure / OR operative note. John Paul Moyer MD IMG XR PROCEDURES Fin al Result RAD_PACS_CH documented in this encounter Visit Diagnoses Not on filedocumented in this encounter Care Teams Specialized Developer Relationship Specialty Start Date End Date Justen Gale MD 2 [facility] [address] [place] [address] PCP - General 10/09/17 Liu Jerez MD Consulting Physician Gastroenterology 07/28/17 [place] [address] [facility] [address] [place] [address] Consulting Physician Pulmonary Disease 08/03/17 Khris Arthur MD [address] [facility] [address] [place] [address] Medical Oncologist/Life Enrichment Assistant Medical Oncology 10/23/17 [place] [address] [address] Surgeon Orthopedic Surgery 10/23/17 [place] [address] [address] [address] Consulting Physician Pain Management 10/23/17 documented as of this encounter
--- OUTSIDE RECORDS SUMMARY | 2024-04-26 04:27 | XMS_ITS | Encounter Summary ---
Author Organization [facility] Healthcare Address [address] [place] [address] Care Team Providers Care Pumping Plant Operator Name Role Phone Liu Jerez MD Unavailable Albert Corbin MD Unavailable Justen Gale MD Primary Care Provider Khris Arthur MD Unavailable [phone] Ko Melendez MD Unavailable John Paul Moyer MD Unavailable [phone] Encounter Details Date Type Department Care Team (Latest Contact Info) Description 11/01/2017 7:27 PM CDT - 11/01/2017 11:59 PM CDT Hospital Encounter [facility] Diagnostic Imaging [address] [place] [address] Discharge Disposition: Discharge to home [...] on file 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 Sandra MCKEON IMG XR PROCEDURES Final Re sult documented in this encounter Visit Diagnoses Not on filedocumented in this encounter Care Teams Pumping Plant Operator Relationship Specialty Start Date End Date Justen Gale MD 2 [facility] [address] [place] [address] PCP - General 10/09/17 Liu Jerez MD Consulting Physician Gastroenterology 07/28/17 [place] [address] [address] [facility] [address] [place] [address] Consulting Physician Pulmonary Disease 08/03/17 Khris Arthur MD [address] [facility] [address] [place], [place] [id number] Medical Oncologist/Seed District Sales Manager Medical Oncology 10/23/17 [place] [address] [address] [facility] [address] [place] [address] Surgeon Orthopedic Surgery 10/23/17 [place] [address] [address] Consulting Physician Pain Management 10/23/17 documented as of this encounter
--- OUTSIDE RECORDS SUMMARY | 2024-04-26 04:27 | XMS_ITS | Encounter Summary ---
Author Organization [facility] Address [address] [place] [address] Phone Care Team Providers Care Hemstitching Machine Operator Name Role Phone Liu Jerez MD Unavailable Albert Corbin MD Unavailable Justen Gale MD Primary Care Provider [phone] Khris Arthur MD Unavailable [phone] Ko Melendez MD Unavailable John [place] Moyer MD Unavailable [phone] Encounter Details Date Type Department Care Team (Late st Contact Info) Description 11/13/2017 Orders Only [facility] Oncology [address] [facility] 7th [place] [address] [place] [address] Khris Arthur MD [address] [facility] [address] [place] [address] Other pulmonary embolism without acute cor pulmonale, unspecified chronicity (CMS/HCC) (Primary Dx) Social History Tobacco Use Types Packs/Day Years Used Date Smoking Tobacco: Former Smokeless Tobacco: Never Comments:remote tobacco use Alcohol Use Standard Drinks/Week Comments No 0 (1 standard drink = 0.6 oz pur e alcohol) Comments No Sex and Gender Information Value Date Recorded Sex Assigned at Not on file 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 30 tablet 1 11/13/2017 12/12/2017 documented in this encounter Plan of Treatment Not on file documented as of this encounter Visit Diagnoses Diagnosis Other pulmonary embolism without acute cor pulmonale, unspecified chronicity (HCC)- Primary documented in this encounter Discontinued Medications Medication Sig Discontinue Reason Start Date End Da te rivaroxaban (XARELTO) 10 mg tablet Take 20 mg by mouth daily after dinner. Reorder 11/13/2017 documented as of this encounter Care Teams Hemstitching Machine Operator Relationship Specialty Start Date End Date Justen Gale MD [address] [address] PCP - General 10/09/17 Liu Jerez MD Consulting Physician Gastroenterology 07/28/17 [place] [address] [facility] [address] [place] [address] Consulting Physician Pulmonary Disease 08/03/17 Khris Arthur MD [address] [facility] [address] [place] [address] Medical Oncologist/Vertica Architect Medical Oncology 10/23/17 [place] [address] [address] Surgeon Orthopedic Surgery 10/23/17 [place] [address] [address] Consulting Physician Pain Management 10/23/17 documented as of this encounter
--- OUTSIDE RECORDS SUMMARY | 2024-04-26 04:28 | XMS_ITS | Encounter Summary ---
Author Organization [facility] Healthcare Address [address] [place] [address] Care Team Providers Care Printing Grey Cloth Tender Name Role Phone Liu Jerez MD Unavailable Albert Corbin MD Unavailable Justen Gale MD Primary Care Provider [phone] Reason for Visit * Reason Comments Shortness of Breath Encounter Details Date Type Department Care Team (Late st Contact Info) Description 08/18/2017 3:59 PM CDT - 08/18/2017 9:40 PM CDT Emergency [facility] Emergency Department [address] [place] [address] Devonte Lake MD [address] [place] [address] [address] [place] [address] Acute bronchitis, unspecified organism (Primary Dx); Sinus congestion; Costochondritis, acute Discharge Disposition: Discharge to home or self care Social History Tobacco Use Types Packs/Day Years Used Date Smoking Tobacco: Former Smokeless Tobacco: Never Alcohol Use Standard Drinks/Week Comments No 0 (1 standard drink = 0.6 oz pur e alcohol) Comments No Sex and Gender Information Value Date Recorded Sex Assigned at Not on file Legal Sex Female 12:24 AM [employer] Gender Identity Not on file Sexual Orientation Not on file documented as of this encounter Last Filed Vital Signs Vital Sign Reading Time Taken Comments Blood Pressure 110/65 08/18/2017 9:15 PM CDT Pulse 84 08/18/2017 9:15 PM CDT Temperature 37.1 ??C (98.7 ??F) 08/18/2017 3:11 PM CD T Respiratory Rate 17 08/18/2017 9:15 PM CDT Oxygen Saturation 100% 08/18/2017 9:15 PM CDT Inhaled Oxygen Concentration - - Weight - - Height - - Body Mass Index - - documented in this encounter Discharge Instructions * Discharge Instructions* Devonte Lake MD - 08/18/2017 8:52 PM CDT [address] Do not drive after taking the hycodan 2. Start the allergy medications- claritin and flonase 3. Return if symptoms get worse * Attachments The following attachments cannot be sent through Care Everywhere. * Chest Wall Pain, Costochondritis (Japanese) * Cold Symptoms (School Curriculum Developer) (Japanese) * Acute Bronchitis (General Information) (Japanese) documented in this encounter Medications at Time of Discharge predniSONE (DELTASONE) 20 mg tabletIndication s:Anti-inflammat ory Take 2 tablets (40 mg total) by mouth daily for 5 days. 10 tablet 08/15/2017 8 albuterol HFA (PROVENTIL HFA) 90 mcg/actuation inhaler Inhale 2 puffs. 08/15/2017 8 albuterol HFA (PROVENTIL HFA,VENTOLIN HFA) 90 mcg/actuation inhalerIndicatio ns:Bronchospasm Prevention Inhale 2 puffs every 4 (four) hours as needed for shortness of breath. 1 Inhaler 08/18/2017 8 albuterol HFA (PROVENTIL HFA,VENTOLIN HFA) 90 mcg/actuation inhalerIndicatio ns:Bronchospasm Prevention Inhale 2 puffs every 4 (four) hours as needed for wheezing. 1 Inhaler 08/18/2017 8 azithromycin (ZITHROMAX) 250 mg tablet Take 2 tablets the first day, then 1 tablet daily for 4 days 6 tablet 08/15/2017 8 baclofen (LIORESAL) 10 mg tablet TAKE 0.5-1 TAB EVERY 12 HOURS NEEDED FOR MUSCLE CRAMPING/SPASMS 05/31/2017 8 exemestane (AROMASIN) 25 mg tablet Take 25 mg by mouth daily. After a meal 8 exemestane (AROMASIN) 25 mg tablet TAKE 1 TABLET BY MOUTH DAILY AFTER A MEAL 08/09/2016 8 fluticasone (FLONASE) 50 mcg/actuation nasal spray Administer 1 spray into each nostril 2 (two) times a day. 16 g 08/18/2017 8 gabapentin (NEURONTIN) 300 mg capsule TAKE 2 CAPSULE 3 TIMES DAILY 05/31/2017 8 guaiFENesin-code ine (GUAITUSS AC) liquid 100-10 mg/5 mL Take 5 mL by mouth. 08/13/2017 8 HYDROcodone-acet aminophen (NORCO) 5-325 mg per tabletIndication s:Pain Take 1-2 tablets by mouth every 6 (six) hours as needed for pain (1 tablet for mild to moderate pain or 2 tablets for severe pain). 12 tablet 08/15/2017 8 HYDROcodone-ronak tropine (HYCODAN) 1-0.3 mg/mL syrupIndications :Cough Take 5 mL by mouth every 4 (four) hours as needed for cough. 120 mL 08/18/2017 8 lisinopril (PRINIVIL,ZESTRI L) 20 mg tablet take 1 Tablet (20MG) by oral route every day 0 05/11/2012 8 lisinopril (PRINIVIL,ZESTRI L) 20 mg tablet Take 20 mg by mouth. 05/11/2012 2 loratadine (CLARITIN) 10 mg tablet Take 1 tablet (10 mg total) by mouth daily. 20 tablet 08/18/2017 8 omeprazole (PriLOSEC) 40 mg capsule Take 1 capsule (40 mg total) by mouth daily. 30 capsule 11 07/28/2017 8 oxybutynin (DITROPAN) 5 mg tablet take [...] every day at bedtime 0 05/11/2012 8 sitaGLIPtin-metf ormin (JANUMET) 50-1,000 mg per tablet Take 1 tablet by mouth daily. 8 documented as of this encounter Ordered Prescriptions Prescription Sig Dispense Quantity Refills Last Filled Start Date End Date albuterol HFA (PROVENTIL HFA,VENTOLIN HFA) 90 mcg/actuation inhalerIndications :Bronchospasm Prevention Inhale 2 puffs every 4 (four) hours as needed for wheezing. 1 Inhaler 08/18/2017 8 HYDROcodone-homatr opine (HYCODAN) 1-0.3 mg/mL syrupIndications:C ough Take 5 mL by mouth every 4 (four) hours as needed for cough. 120 mL 08/18/2017 8 loratadine (CLARITIN) 10 mg tablet Take 1 tablet (10 mg total) by mouth daily. 20 tablet 08/18/2017 8 fluticasone (FLONASE) 50 mcg/actuation nasal spray Administer 1 spray into each nostril 2 (two) times a day. 16 g 08/18/2017 8 albuterol HFA (PROVENTIL HFA,VENTOLIN HFA) 90 mcg/actuation inhalerIndications :Bronchospasm Prevention Inhale 2 puffs every 4 (four) hours as needed for shortness of breath. 1 Inhaler 08/18/2017 8 documented in this encounter Discharge Disposition Disposition Code Departure Means Destination Discharge to home or self care documented in this encounter ED Notes * Devonte Lake MD - 08/18/2017 7:28 PM CDT HPI Chief Complaint Patient presents with ??? Shortness of Breath (6:56 PM 08/18/2017) Patient is a 62 y/o female with a history of DM, HTN, breast cancer, PE, DVT (on Xarelto currently) who presents to the ED c/o SOB, cough with 1 episode of productive sputum, and wheezing onset 8 days ago and chest pain. Despite being treated with zpak, prednisone and albuterol one week ago her symptoms have not improved. She also has chest pain with coughing. She also reportsfeeling weak and light-headed, which is exacerbated when she stands up. She denies any fevers, chills, congestion, rhinorrhea, or anxiety. The patient reports that her eating, drinking, and urinationhas been normal. The patient does not have a primary Physician yet, but she was given one during her last visit and had followed up scheduled for today. Patient History Patient Active Problem List Diagnosis Date Noted ??? Chronic anticoagulation ??? Restless leg syndrome [...] History: Diagnosis Date ??? Adiposity obesity ??? Cancer (CMS/HCC) breast ??? CHF (congestive [...] ??? ABSCESS TUBE EXCHANGE N/A 11/05/2014 ??? SECTION section ??? CHOLECYSTECTOMY Cholecystectomy ??? [...] Smoker ??? Smokeless tobacco: Never Used ??? Alcohol use No Social History Social History Narrative ??? No narrative on file Review of Systems Review of Systems Constitutional: Negative for chills, fatigue and fever. HENT: Positive for congestion. Negative for ear pain, rhinorrhea, sneezing and sore throat. Respiratory: Positive for shortness of breath and wheezing. Negative for cough. Cardiovascular: Positive for chest pain. Negative for palpitations. Gastrointestinal: Negative for abdominal pain, constipation, diarrhea, nausea and vomiting. Genitourinary: Negative for dysuria and frequency. Musculoskeletal: Negative for arthralgias, back pain, myalgias and neck pain. Skin: Negative for color change, pallor, rash and wound. Neurological: Positive for weakness and light-headedness. Negative for dizziness, syncope and headaches. All other systems reviewed and are negative. Physical Exam ED Triage Vitals [08/18/17 1511] Temp Pulse Resp BP SpO2 37.1 ??C (98.7 ??F) 91 19 139/87 100 % Temp src Heart Rate Source Patient Position BP Location FiO2 (%) -- -- -- -- -- Physical Exam Constitutional: She is oriented to person, place, and time. She appears well- developed and well-nourished. No distress. Mild discomfort HENT: Head: Normocephalic and atraumatic. Right Ear: External ear normal. Left Ear: External ear normal. Mouth/Throat: Oropharynx is clear and moist. Eyes: Conjunctivae and EOM are normal. Pupils are equal, round, and reactive to light. Neck: Normal range of motion. Neck supple. No JVD present. No thyromegaly present. Cardiovascular: Normal rate, regular rhythm, normal heart sounds and intact distal pulses. Exam reveals no gallop and no friction rub. No murmur heard. Pulmonary/Chest: Effort normal and breath sounds normal. No respiratory distress. She has no wheezes. She has no rales. No wheezing on lung exam, but pt with upper airway forced breathing Abdominal: Soft. Bowel sounds are normal. She exhibits no distension and no mass. There is no tenderness. There is no rebound and no guarding. Musculoskeletal: Normal range of motion. She exhibits no edema, tenderness or deformity. Lymphadenopathy: She has no cervical adenopathy. Neurological: She is alert and oriented to person, place, and time. No cranial nerve deficit or sensory deficit. Coordination normal. Skin: Skin is warm and dry. Capillary refill takes less than 2 seconds. No rash noted. She is not diaphoretic. No erythema. No pallor. Psychiatric: She has a normal mood and affect. Her behavior is normal. Nursing note and vitals reviewed. ED Course & MDM BP 103/67 Pulse 85 Temp 37.1 ??C (98.7 ??F) Resp 19 SpO2 99% Labs Reviewed CBC WITH AUTO DIFFERENTIAL - Abnormal Result Value WBC 12.7 (*) RBC 4.25 Hgb 11.5 (*) Hct 37.4 MCV 88.0 MCH 27.1 MCHC 30.7 (*) RDW CV 15.1 (*) RDW SD 48.4 (*) Platelets 341 MPV 9.7 NRBC Abs 0.00 Narrative: DIFFERENTIAL AUTO - Abnormal Neutrophil absolute 8.1 (*) Immature granulocyte absolute 0.1 Lymphocytes absolute 3.3 Monocyte absolute 0.9 (*) Eosinophils absolute 0.3 Basophils, abs 0.0 Neutrophils 63.8 Immature granulocytes 0.6 Lymphocytes 25.9 Monocytes 6.9 Eosinophils 2.4 Basophils 0.4 Narrative: COMPREHENSIVE METABOLIC PANEL Sodium 135 Potassium 4.5 CO2 27 BUN 16 Glucose 194 Creatinine 0.76 Calcium 9.3 Chloride 102 Albumin 3.2 AST 22 ALT 22 Alk phos 71 Bilirubin 0.70 Protein, pl 7.2 Anion Gap 10 Narrative: TROPONIN I Troponin I <0.03 Narrative: EGFR GFR 85 Narrative: XR Chest Pa Lateral 2 Views Final Result No acute cardiopulmonary abnormality. Electronically signed by: Prince House M.D. ED Course as of Aug 18 2099MonAug 18, [id number] Rechecked patient. The patient reports improvement from her breathing treatment and would liketo go home. [BM] 192 The patient has been informed that they may have pre-hypertension or Hypertension based on a blood pressure reading in the Emergency Department. I recommend that the patient call the primary care provider listed on their discharge instructions or a physician of their choice this week to arrange follow up for further evaluation of possible Hypertension. [BM] ED Course User Index [BM] Demarcus Gilles MDM Number of Diagnoses or Management Options Acute bronchitis, unspecified organism: established and worsening Costochondritis, acute: established and worsening Sinus congestion: established and worsening Diagnosis management comments: Pt with peristent symptoms, ? Due to seasonal allergies, no signs ofinfection at this time, will add sinus medications to regimen and give pulmonary referral Amount and/or Complexity of Data Reviewed Clinical lab tests: reviewed Tests in the radiology section of CPT??: reviewed Independent visualization of images, tracings, or specimens: yes Risk of Complications, Morbidity, and/or Mortality Presenting problems: moderate Diagnostic procedures: moderate Management options: moderate Patient Progress Patient progress: stable Acute bronchitis, unspecified organism Sinus congestion Costochondritis, acute Demarcus Gilles scribed for Devonte Lake MD in the doctor's presence. I electronically signed this note at 7:28 PM on 08/18/2017. I, Dr. Lake, have personally performed the services described in the documentation , reviewedthe documentation, as recorded by the scribe in my presence, and it accurately and completely records my words and actions. Devonte Lake MD 08/18/172100 * Farzaneh Salazar, NURIS - 08/18/2017 3:10 PM CDT Dx with bronchitis last week. States OTC medications are not working. States that she is SOB and needs a breathing tx. documented in this encounter Miscellaneous Notes * ED Procedure Note - Devonte Lake MD - 08/18/2017 8:43 PM CDT Associated Order(s): ECG 12-LEAD Procedure ECG 12 lead Date/Time: 08/18/2017 8:43 PM Performed by: DEVONTE LAKE Authorized by: DEVONTE LAKE Rate: ECG rate: 88 ECG rate assessment: normal Rhythm: Rhythm: sinus rhythm Ectopy: Ectopy: none QRS: QRS axis: Normal QRS intervals: Normal Conduction: Conduction: normal ST segments: ST segments: Non-specific T waves: T waves: non-specific Previous ECG: Previous ECG: Compared to current Date of previous EC08/14/2017 Interpretation: Interpretation: non-specific Devonte Lake MD 08/18/172044 documented in this encounter Plan of Treatment Not on file documented as of this encounter Procedures Procedure Name Priority Date/Time Associated Diagnosis Comments EGFR STAT 08/18/2017 5:27 PM CDT DIFFERENTIAL AUTO STAT 08/18/2017 5:2 7 PM CDT CBC WITH AUTO DIFFERENTIAL STAT 08/18/2017 5:27 PM CDT TROPONIN I STAT 08/18/2017 5:27 PM CDT COMPREHENSIVE METABOLIC PANEL STAT 08/18/2017 5:27 PM CDT XR CHEST PA LATERAL 2 VIEWS ED 08/18/2017 4:24 PM CDT ECG 12-LEAD Routine 08/18/2017 3:17 PM CDT DISCHARGE LABORATORY CUMULATIVE REPORT 08/18/2017 12:00 AM CDT documented in this encounter Results * eGFR (08/18/2017 5:27 PM CDT) eGFR 85 mL/min/1.7 3 m2 [facility] Comment: Interpretive Data Reference Interval Normal ?>/= 90 mL/min/1.73m2 Mildly decreased* ? 60 - 89 mL/min/1.73m2 Mildly to moderately decreased ?45 - 59 mL/min/1.73m2 Moderately to severely decreased ??30 - 44 mL/min/1.73m2 Severely decreased ?15 - 29 mL/min/1.73m2 Kidney Failure ?< 15 ??mL/min/1.73m2 *Relative to young adult level If -Marshallese multiply value by 1.16. Estimated glomerular filtration [...] was last reviewed 2015. Blood specimen (specimen) 08/18/2017 5:27 PM CDT 08/18/2017 5:39 PM CDT Narrative [facility] - 08/18/2017 6:01 PM CDT us Karlos Lim MD LAB BLOOD ORDERABLES Fi nal Result [facility] [id number] Department [place] [address] * (ABNORMAL) Differential, auto (08/18/2017 5:27 PM CDT) Pathologist [facility] Neutrophil abs 8.1(H) 1.7 - 6.5 K/cumm [facility] Imm gran abs 0.1 0.0 - 0.1 K/cumm [facility] Lymphocyte abs 3.3 0.8 - 3.3 K/cumm [facility] Monocyte abs 0.9(H) 0.2 - 0.8 K/cumm [facility] Eosinophil abs 0.3 0.0 - 0.5 K/cumm [facility] Basophil abs 0.0 0.0 - 0.1 K/cumm [facility] Neutrophil pct 63.8 % [facility] Comment: Interpretive Data Percent cell count reference ranges are not reported, since discordance with absolute values may lead to misinterpretation of CBC data. Current Interpretive Data was last revised on 2017. Imm gran pct 0.6 % [facility] Comment: Interpretive Data Percent cell count reference ranges are not reported, since discordance with absolute values may lead to misinterpretation of CBC data. Current Interpretive Data was last revised on 2017. Lymphocyte pct 25.9 % [facility] Comment: Interpretive Data Percent cell count reference ranges are not reported, since discordance with absolute values may lead to misinterpretation of CBC data. Current Interpretive Data was last revised on 2017. Monocyte pct 6.9 % [facility] Comment: Interpretive Data Percent cell count reference ranges are not reported, since discordance with absolute values may lead to misinterpretation of CBC data. Current Interpretive Data was last revised on 2017. Eosinophil pct 2.4 % [facility] Comment: Interpretive Data Percent cell count reference ranges are not reported, since discordance with absolute values may lead to misinterpretation of CBC data. Current Interpretive Data was last revised on 2017. Basophil pct 0.4 % [facility] Comment: Interpretive Data Percent cell count reference ranges are not reported, since discordance with absolute values may lead to misinterpretation of CBC data. Current Interpretive Data was last revised on 2017. Blood specimen (specimen) 08/18/2017 5:27 PM CDT 08/18/2017 5:36 PM CDT Narrative [facility] - 08/18/2017 5:40 PM CDT us Karlos Lim MD LAB BLOOD ORDERABLES Fi nal Result [facility] [id number] [place] [address] * Troponin I (08/18/2017 5:27 PM CDT) [facility] Troponin I <0.03 0.00 - 0.14 ng/mL [facility] Comment: Interpretive Data Normal: ? 0.00 - 0.14 ng/mL Indeterminate: ?0.15 - 0.50 ng/mL NM / Cardiac Muscle Damage: ? >0.50 ng/mL Current interpretive data was last reviewed 2015 Blood specimen (specimen) 08/18/2017 5:27 PM CDT 08/18/2017 5:36 PM CDT Narrative [facility] - 08/18/2017 6:01 PM CDT Karlos Lim MD LAB BLOOD ORDERABLES Ed ited Result - Final [facility] [id number] Department [place] [address] * Comprehensive metabolic panel (08/18/2017 5:27 PM CDT) [facility] Sodium 135 135 - 145 mmol/L [facility] Potassium, pl 4.5 3.5 - 5.1 mmol/L [facility] CO2 27 22 - 32 mmol/L [facility] BUN 16 8 - 24 mg/dL [facility] Glucose 194 70 - 199 mg/dL [facility] [...] Current interpretive data was last revised 2017. Creatinine 0.76 0.60 - 1.30 mg/dL [facility] Calcium 9.3 8.4 - 10.5 mg/dL [facility] Chloride 102 100 - 114 mmol/L [facility] Albumin 3.2 3.2 - 4.8 g/dL [facility] AST 22 7 - 40 Units/L [facility] ALT 22 1 - 45 Units/L [facility] Alk phos 71 30 - 110 Units/L [facility] Bilirubin, total 0.70 0.10 - 1.30 mg/dL [facility] Protein, pl 7.2 6.0 - 8.3 g/dL [facility] Anion gap 10 8 - 16 mmol/L [facility] Blood specimen (specimen) 08/18/2017 5:27 PM CDT 08/18/2017 5:36 PM CDT Narrative [facility] - 08/18/2017 6:01 PM CDT us Karlos Lim MD LAB [place]LOOD [place] [id number] [address] Department [place] [address] * (ABNORMAL) CBC with auto differential (08/18/2017 5:27 PM CDT) WBC 12.7(H) 3.8 - 9.9 K/cumm [facility] RBC 4.25 3.90 - 5.20 M/cumm [facility] Hgb 11.5(L) 11.9 - 15.5 g/dL [facility] Hct 37.4 35.6 - 45.5 % [facility] MCV 88.0 81.3 - 96.4 fL [facility] MCH 27.1 27.1 - 33.3 pg [facility] MCHC 30.7(L) 32.3 - 35.7 g/dL [facility] RDW CV 15.1(H) 11.1 - 14.9 % [facility] RDW SD 48.4(H) 35.7 - 48.1 fL [facility] Plt 341 150 - 400 K/cumm [facility] MPV 9.7 9.1 - 12.3 fL [facility] NRBC abs 0.00 0.00 - 0.01 K/cumm [facility] Blood specimen (specimen) 08/18/2017 5:27 PM CDT 08/18/2017 5:36 PM CDT Narrative [facility] - 08/18/2017 5:40 PM CDT Karlos Lim MD LAB BLOOD ORDERABLES Fi nal Result [facility] [id number] Department [place] [address] * XR Chest Pa Lateral 2 Views (08/18/2017 4:24 PM CDT) Anatomical Region Laterality Modality Body, Chest N/A Computed Radiogr aphy Impressions 08/18/2017 4:28 PM CDT No acute cardiopulmonary abnormality. Electronically signed by: Prince House M.D. Narrative 08/18/2017 4:28 PM CDT RESULT: EXAMINATION: PA AND LATERAL CHEST RADIOGRAPHS Date: 08/18/2017 4:15 PM History: Shortness of breath Comparison: Comparison is made to the radiographic examination dated 08/14/2017. Findings: The lungs are free of acute peripheral opacities. There is no pneumothorax or pleural effusion. The heart size is normal. Degenerative changes involve the thoracic spine. Procedure Note Prince House MD - 08/18/2017 RESULT: EXAMINATION: PA AND LATERAL CHEST RADIOGRAPHS Date: 08/18/2017 4:15 PM History: Shortness of breath Comparison: Comparison is made to the radiographic examination dated 08/14/2017. Findings: The lungs are free of acute peripheral opacities. There is no pneumothorax or pleural effusion. The heart size is normal. Degenerative changes involve the thoracic spine. IMPRESSION: No acute cardiopulmonary abnormality. Electronically signed by: Prince House M.D. Devonte Lake MD IMG XR PROCEDURES Deann l Result * ECG 12 lead (08/18/2017 3:17 PM CDT) Patient age 62 years [facility] Interpretation Text SINUS RHYTHMPOSSIBLE LEFT ATRIAL ENLARGEMENTPOSSIBLE RIGHT VENTRICULAR CONDUCTION DELAYBORDERLINE ECGPREVIOUS TRACIN08/14/2017 19.49Compared to prior ECG rSr' V1 V2 suggests right ventricular conduction delay is new. [facility] Comment:Physician Interprete r Dr. Ramon De M.D. Ventricular Rate EKG/Min 88 /min [facility] P Wave Duration 108 ms [facility] QRS-Interval (MSEC) 89 ms [facility] DE-Interval (MSEC) 130 ms [facility] QT Interval 343 ms [facility] QTc 392 ms [facility] QTC Interval ms [facility] P Mclean 38 deg [facility] QRS [place] 13 deg [facility] T Mclean 32 deg [facility] 08/18/2017 3:17 PM CDT Devonte Lake MD ECG ORDERABLES Final Result [facility] [place] * DISCHARGE LABORATORY CUMULATIVE REPORT (08/18/2017 12:00 AM CDT) Narrative 08/18/2017 12:00 AM CDT Ordered by an unspecified provider. Historical Provider LAB BLOOD ORDERABLES Deann l Result documented in this encounter Visit Diagnoses Diagnosis Acute bronchitis, unspecified organism- Primary Sinus congestion Other diseases of nasal cavity and sinuses Costochondritis, acute documented in this encounter Administered Medications Inactive Administered Medications - up to 3 most recent administrations Medication Order MAR Action Action Date Dose Rate Site albuterol (PROVENTIL,VENTOLIN) 2.5 mg/0.5 mL nebulizer solution - ADS Override Pull Starting on Mon08/18/17 at 1558, For 1 dose, BONNY RIOJAS: cabinet override albuterol (PROVENTIL,VENTOLIN) 2.5 mg/0.5 mL nebulizer solution 5 mg 5 mg, nebulization, Once (correspondence coordinator), On Mon08/18/17 at 1515, For 1 dose, Indications: COPD ExacerbationIndications:COPD Exacerbation Given 08/18/2017 4:06 PM CDT 2.5 mg ipratropium (ATROVENT) 0.02 % nebulizer solution - ADS Override Pull Starting on Mon08/18/17 at 1558, For 1 dose, BONNY RIOJAS: cabinet override Given 08/18/2017 4:07 PM CDT 0.5 mg ipratropium-albuterol (DUO-NEB) 0.5-2.5 mg/3 mL nebulizer solution 3 mL 3 mL, nebulization, Every 6 hours PRN (correspondence coordinator), wheezing, shortness of breath, Starting on Mon08/18/17 at 1604, Indications: Chronic Obstructive Pulmonary Disease with BronchospasmsIndications:Chr onic Obstructive Pulmonary Disease with Bronchospasms ipratropium-albuterol (DUO-NEB) 0.5-2.5 mg/3 mL nebulizer solution 3 mL 3 mL, nebulization, Once, On Mon08/18/17 at 1915, For 1 dose, MAY REPEAT 3 DOSES Q 10 MINUTES NEEDED FOR WHEEZING, Indications: Chronic Obstructive Pulmonary Disease with BronchospasmsIndications:Chr onic Obstructive Pulmonary Disease with Bronchospasms Given 08/18/2017 7:30 PM CDT 3 mL sodium chloride 0.9% bolus 1,000 mL 1,000 mL, intravenous, at 1,000 mL/hr, Administer over 1 Hours, Once, On Mon08/18/17 at 1915, For 1 dose New Bag 08/18/2017 7:24 PM CDT 1,000 mL 1000 mL/hr documented in this encounter Discontinued Medications Medication Sig Discontinue Reason Start Date End Da te albuterol HFA (PROVENTIL HFA,VENTOLIN HFA) 90 mcg/actuation inhalerIndications:[facility] hospasm Prevention Inhale 2 puffs every 4 (four) hours as needed for wheezing. 08/15/2017 08/18/2017 documented as of this encounter Active and Recently Administered Medications Times are shown in CDT. Scheduled Medication Order 08/16/2017 08/17/2017 08/18/2017 albuterol (PROVENTIL,VENTOLIN) 2.5 mg/0.5 mL nebulizer solution 5 mg (COMPLETED) 5 mg, nebulization, Once (correspondence coordinator), On Mon08/18/17 at 1515, For 1 dose, Indications: COPD Exacerbation 1606 (Given - Provid er: 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, 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) ipratropium-albuterol (DUO-NEB) 0.5-2.5 mg/3 mL nebulizer solution 3 mL (COMPLETED) 3 mL, nebulization, Once, On Mon08/18/17 at 1915, For 1 dose, MAY REPEAT 3 DOSES Q 10 MINUTES NEEDED FOR WHEEZING, Indications: Chronic Obstructive Pulmonary Disease with Bronchospasms 193 (Given - Provid er: Cem Lucero, 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) sodium chloride 0.9% bolus 1,000 mL (COMPLETED) 1,000 mL, intravenous, at 1,000 mL/hr, Administer over 1 Hours, Once, On Mon08/18/17 at 1915, For 1 dose 192 (New Bag - Prov ider: Mariely Mcmillan, NURIS)193 (Stopped - Provider: Pj Argueta RN) PRN Medication Order 08/16/2017 08/17/2017 08/18/2017 ipratropium-albuterol (DUO-NEB) 0.5-2.5 mg/3 mL nebulizer solution 3 mL 3 mL, nebulization, Every 6 hours PRN (correspondence coordinator), wheezing, shortness of breath, Starting on Mon08/18/17 at 1604, Indications: Chronic Obstructive Pulmonary Disease with Bronchospasms 1719 (Due) No Frequency Medication Order 08/16/2017 08/17/2017 08/18/2017 ipratropium (ATROVENT) 0.02 % nebulizer solution - ADS Override Pull (COMPLETED) Starting on Mon08/18/17 at 1558, For 1 dose, BONNY RIOJAS: cabinet override 1607 (Given - Provid er: 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, 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) documented in this encounter Orders Medications Ordered That Tyler ht Not Have Been Administered Count Last Ordered Date First Ordered Date ipratropium (ATROVENT) 0.02 % nebulizer solution 0.5 mg 1 08/18/2017 ipratropium-albuterol (DUO-N EB) 0.5-2.5 mg/3 mL nebulizer solution 3 mL 1 08/18/2017 Nursing Count Last Ordered Date First Orde red Date CARDIORESPIRATORY MONITOR 1 08/18/2017 CONTINUOUS PULSE OXIMETRY 1 08/18/2017 IV Count Last Ordered Date First Orde red Date SALINE LOCK IV 1 08/18/2017 documented in this encounter Care Teams Printing Grey Cloth Tender Relationship Specialty Start Date End Date Justen Gale MD [address] [id number] PCP - General 08/18/17 08/22/17 Liu Jerez MD Consulting Physician Gastroenterology 07/28/17 [place] [id number] [facility] [id number] [place] [address] Consulting Physician Pulmonary Disease 08/03/17 documented as of this encounter
--- OUTSIDE RECORDS SUMMARY | 2024-04-26 04:28 | XMS_ITS | Encounter Summary ---
Author Organization [facility] Healthcare Address [address] [place] [address] Care Team Providers Care [employer] Name Role Phone Liu Jerez MD Unavailable [phone] Albert Corbin MD Unavailable Justen Gale MD Primary Care Provider Khris Arthur MD Unavailable [phone] Ko Melendez MD Unavailable John Paul Moyer MD Unavailable Reason for Visit * Reason Comments Back Pain Encounter Details Date Type Department Care Team (Latest Contact Info) Description 10/25/2017 9:20 PM CDT - 10/31/2017 3:57 PM CDT Hospital Encounter [facility] On[facility] [address] [place] [address] Ryan Costa Jr., MD [address] [place] [address] [place] [address] [facility] [address] [place], [place] [id number] [place] [address] [facility] [address] [place] [address] [place] [address] [facility] [address] [place] [address] Sciatica of left side (Primary Dx); Spinal stenosis of lumbar region with neurogenic claudication; Left leg weakness Discharge Disposition: Discharge to home or self care Social History Tobacco Use Types Packs/Day Years Used Date Smoking Tobacco: Former Smokeless Tobacco: Never Comments:remote tobacco use Alcohol Use Standard Drinks/Week Comments No 0 (1 standard drink = 0.6 oz pur e alcohol) Comments No Sex and Gender Information Value Date Recorded Sex Assigned at Not on file Legal Sex 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 Gender Identity Not on file Sexual Orientation Not on file documented as of this encounter Last Filed Vital Signs Vital Sign Reading Time Taken Comments Blood Pressure 98/57 10/31/2017 12:49 PM CDT Pulse 82 10/31/2017 12:49 PM CDT Temperature 37.1 ??C (98.7 ??F) 10/31/2017 1 2:16 PM CDT Respiratory Rate 18 10/31/2017 12:4 9 PM CDT Oxygen Saturation 99% 10/31/2017 12: 16 PM CDT Inhaled Oxygen Concentration - - Weight 129.1 kg (284 lb 9.8 oz) 10/26/2017 4:41 AM CDT Height 154.9 cm (5' 0.98 ) 10/26/2017 1 1:06 AM CDT Body Mass Index 53.81 10/26/2017 4:41 AM CDT documented in this encounter Discharge Summaries * Elo Aceves MD - 10/31/2017 2:19 PM CDT Inpatient Discharge Summary Admitting Provider: Remi Garza MD Discharge Provider: Elo Aceves MD Primary Care Physician at Discharge: Justen Gale MD [phone] Date Of Service: 10/31/2017 Admission Date: 10/25/2017 Discharge Date: 10/31/2017 Discharge Diagnosis: Acute left-sided low back pain with left-sided sciatica History of DVT (deep vein thrombosis) History of pulmonary embolism Cancer of overlapping sites of left female breast (CMS/HCC) Type 2 diabetes mellitus with A1C 9.2 Anemia s/p colonoscopy 07-03-17 showing diverticulosis HTN DETAILS OF HOSPITAL STAY Hospital Course: Patient is a pleasant 62 year old female admitted with low back pain and left sided sciatica. She was recently admitted with similar issues and plan was to follow up with Dr. Moyer as an outpatient for a steroid injection since patient had to be off Xarelto. Patient came back to the ER due to unbearable pain. She was seen by Dr. Melendez, open MRI at [place] was arranged which showed mild to moderate degenerative changes with at most mild left neuroforaminal narrowing at L4-L5. Discussed with Dr. Melendez who did not recommend any surgical intervention. Due to the October 25 holiday, patient could not get her steroid injection till 10-31 once she was off any medications contraindicated before the procedure. Discussed with Dr. Moyer, ok to restart Xarelto tonight. Outpatient PT/OT. Weight loss andincreased activity recommended as patient's pain is thought to be more due to DJD and musculoskeletal. She will follow up with pain management for joint injections. Due to elevated blood sugars patient was on lantus during hospital stay, blood sugars also were better on metformin 850 mg twice a day. Patient takes Janumet 50-1000 mg daily at home and apparently glimeperide was added recently by primary care physician which patient has not started yet. Patient has been asked to keep a record of blood sugars and call Dr. Gale if too high or too low. community nutrition educator was consulted during [facility] stay. Test Results Pending at Discharge: None Operative Procedures Performed: Procedure(s): Injection - Epidural Steroid - Lumbar Other Procedures: None Pertinent Test Results: Xr Spine Lumbar 2 Or 3 Views [...] Electronically signed by: Maria Elena Shin M.D. Mri Lumbar Spine Wo Contrast Result [...] extremity. Electronically signed by: Aguila Grijalva M.D. Recent Labs Lab Units 10/27/17 0629 WHITE BLOOD CELLS K/cumm 10.4* HEMOGLOBIN g/dL 10.5* HEMATOCRIT % 34.8* PLATELETS K/cumm 274 Recent Labs Lab Units 10/31/17 1408 10/27/17 0629 SODIUM mmol/L -- -- 133* POTASSIUM PLASMA mmol/L -- -- 4.3 CHLORIDE mmol/L -- -- 101 CO2 mmol/L -- -- 27 ANIONGAP mmol/L -- -- 9 GLUCOSE mg/dL -- -- 349* POC GLUCOSE MONITOR mg/dL 151 < > -- BUN SERUM mg/dL -- -- 20 CREATININE mg/dL -- -- 0.82 CALCIUM mg/dL -- -- 9.0 < > = values in this interval not displayed. Physical Exam at Discharge: Discharge Condition: fair Vitals: 10/30/17 2300 10/31/17 0800 10/31/17 1216 10/31/17 1249 BP: 97/61 101/61 121/70 98/57 BP Location: Right arm Right arm Patient Position: Lying Lying Pulse: 82 75 87 82 Resp: Temp: 36.8 ??C (98.2 ??F) 36.5 ??C (97.7 ??F) 37.1 ??C (98.7 ??F) TempSrc: Oral Oral SpO2: 94% 94% 99% Weight: Height: Physical exam: Gen:well built female Lungs:Symmetrical breath sounds b/l Heart:s1,S2 heard Abdomen:soft, NT, BS+ Extremities:No edema b/l LE Neuro:Alert, [...] Diet Instructions Adult Discharge Diet Diet Type: Low fat intake Restrict salt intake to less than 4000 mg per day Other (specify) Explanatory Comment: 1800 calorie consistent carb, high fiber diet Recommend discharge on low fat, low sodium and consistent carbohydrate diet (60- 75 grams of carbohydrate per meal). Please contact the dietitians office with questions . Other Instructions Call provider for: Temperature -Temperature [...] headache, visual disturbances, weakness and speech changes Special Instructions Discharge Medications: Current Discharge Medication List CONTINUE these medications which have NOT CHANGED Details rivaroxaban (XARELTO) 10 mg tablet Take 20 mg by mouth daily. cyclobenzaprine (FLEXERIL) 5 mg tablet Take 1 tablet (5 mg total) by mouth 3 (three) times a day asneeded for muscle spasms for up to 30 doses. Qty: 30 tablet, Refills: 0 exemestane (AROMASIN) 25 mg tablet Take 25 mg by mouth daily. After a meal lisinopril (PRINIVIL,ZESTRIL) 20 mg tablet take 1 Tablet (20MG) by oral route every day Refills: 0 oxybutynin (DITROPAN) 5 mg tablet take 1 tablet by oral route every day Qty: 0, Refills: 0 polyethylene glycol (MIRALAX) 17 gram/dose powder Mix 1 scoop (17 g) in 8 oz of water and drink daily. Qty: 527 g, Refills: 0 rOPINIRole (REQUIP) 5 mg tablet take 1 tablet (5MG) by oral route every day at bedtime Refills: 0 sitaGLIPtin-metformin (JANUMET) 50-1,000 mg per tablet Take 1 tablet by mouth daily. Current Discharge Medication List CONTINUE these medications which have CHANGED Details gabapentin (NEURONTIN) 100 mg capsule Take 1 capsule (100 mg total) by mouth 3 (three) times a day. Qty: 90 capsule, Refills: 0 HYDROcodone-acetaminophen (NORCO) 5-325 mg per tablet Take 1 tablet by mouth every 8 (eight) hours as needed for pain. Qty: 20 tablet, Refills: 0 Current Discharge Medication List START taking these medications Details albuterol HFA (PROVENTIL HFA,VENTOLIN HFA,PROAIR HFA) 90 mcg/actuation inhaler Inhale 2 puffs every4 (four) hours as needed for wheezing. Qty: 1 Inhaler, Refills: 0 fluticasone (FLONASE) 50 mcg/actuation nasal spray Administer 1 spray into each nostril 2 (two) times a day. Qty: 16 g, Refills: 0 glimepiride (AMARYL) 2 mg tablet Take 1 tablet (2 mg total) by mouth daily before breakfast. Refills: 0 Comments: Home medication Current Discharge Medication List Outpatient Follow-Up: Future Appointments Date Time Provider Department Center 11/14/2017 2:00 PM LAB, [facility] ONC ONC LAB [facility] ON[facility] LAB 11/14/2017 2:30 PM Khris Arthur MD ONC [facility] Oncology primary care provider Justen Gale MD [address] [facility] [address] [facility] [address] [place] [address] [facility] [address] [facility] [address] follow up with pain management within a [place] [address] [facility] [address] [facility] [address] follow up with ortho spine as needed Khris Arthur MD [address] [facility] [address] follow up with oncology as scheduled Discharge Time:Greater than 30 minutes Elo Aceves MD Hospitalists [phone] 10/31/2017 2:19 PM documented in this encounter Discharge Instructions * Discharge Instructions* Jane Gardner RN - 10/31/2017 1:00 PM CDT You may notice a slight increase in pain after the procedure. This should start to improve within the next 24-48 hours. It may take as long as 72 hours before you notice a gradual improvement in your pain/symptoms. If you are taking pain medications you may continue to take them. You may restart your medications the day after the procedure. If you are going to physical therapy continue to do so. Be careful walking for the next 1-2 hours. If you experience pain at the injection site, you may apply ice to the affected area for area for 20 minutes every 2 hours. No heat to the injection site for 24 hours. No tub bath or soaking in water(pools/jacuzzi, etc.) for 24 hours. If you develop ANY other symptoms, such as severe pain, headache, visual changes, new numbness or weakness any where on your body, loss of control of your bowels or bladder, or have signs of infection (temperature of 100.4 or greater, drainage at the injection site) Call the Pain Management Center i mmediately at [phone]. After hours, contact the [facility] Ophthalmology Assistant at [phone] and she will reach your physician for you. In case of emergency call 911 * Discharge Instr - Diet* Kerline Cedeno RD - 10/26/2017 1:59 PM CDT Recommend discharge on low fat, low sodium and consistent carbohydrate diet (60- 75 grams of carbohydrate per meal). Please contact the dietitians office with questions . documented in this encounter Medications at Time [...] Date HYDROcodone-acetam inophen (NORCO) 5-325 mg per tablet Take 1 tablet by mouth every 8 (eight) hours as needed for pain. 20 tablet 10/31/2017 8 glimepiride (AMARYL) 2 mg tabletIndications: type 2 diabetes mellitus Take 1 tablet (2 mg total) by mouth daily before breakfast. 0 10/31/2017 8 gabapentin (NEURONTIN) 100 mg capsule Take 1 capsule (100 mg total) by mouth 3 (three) times a day. 90 capsule 10/31/2017 8 fluticasone (FLONASE) 50 mcg/actuation nasal spray Administer 1 spray into each nostril 2 (two) times a day. 16 g 10/31/2017 8 albuterol HFA (PROVENTIL HFA,VENTOLIN HFA,PROAIR HFA) 90 mcg/actuation inhalerIndications :Bronchospasm Prevention Inhale 2 puffs every 4 (four) hours as needed for wheezing. 1 Inhaler 10/31/2017 8 documented in this encounter Discharge Disposition Disposition Code Departure Means Destination Discharge to home or self care documented in this encounter Progress Notes * Elo Aceves MD - 10/30/2017 11:13 AM CDT Daily Progress Subjective: Patient c/o some itching due to pain meds Objective: Vitals: 24hr Min/Max: Temp Min: 36.5 ??C (97.7 ??F) Max: 37.1 ??C (98.7 ??F) Pulse Min: 64 Max: 86 BP Min: 116/74 Max: 122/86 Resp Min: 18 Max: 19 SpO2 Min: 96 % Max: 100 % Most Recent : Vitals: 10/29/17 0710 10/29/17 1624 10/29/17 2300 10/30/17 0759 BP: 111/70 116/74 122/86 117/64 BP Location: Right arm Right arm Right arm Right arm Patient Position: Lying Sitting Sitting Sitting Pulse: 71 76 86 64 Resp: 18 18 Temp: 36.3 ??C (97.4 ??F) 36.5 ??C (97.7 ??F) 36.6 ??C (97.8 ??F) 37.1 ??C (98.7 ??F) TempSrc: Oral Oral Oral Oral SpO2: 99% 96% 100% 96% Weight: Height: I/O last 2 completed shifts: In: 1560 [P.O.:1560] Out: - I/O this shift: In: 480 [P.O.:480] Out: - Physical Exam: Gen:We;; built female Lungs:Symmetrical breath sounds b/l Heart:S1,S2 heard Abdomen:Soft, NT, BS+ Extremities:No edema b/l LE Lab/Radiology/Diagnostic Review: Recent Results (from the past 24 hour(s)) POCT glucose Collection Time: 10/29/17 12:56 PM Result Value Ref Range Glucose, POC, bld 201 (H) 70 - 199 mg/dL POCT glucose Collection Time: 10/29/17 5:53 PM Result Value Ref Range Glucose, POC, bld 149 70 - 199 mg/dL POCT glucose Collection Time: 10/29/17 8:46 PM Result Value Ref Range Glucose, POC, bld 238 (H) 70 - 199 mg/dL POCT glucose Collection Time: 10/30/17 3:06 AM Result Value Ref Range Glucose, POC, bld 198 70 - 199 mg/dL POCT glucose Collection Time: 10/30/17 7:37 AM Result Value Ref Range Glucose, POC, bld 178 70 - 199 mg/dL Ct Lumbar Spine Wo Contrast Result Date: [...] Electronically signed by: Maria Elena Shin M.D. Mri Lumbar Spine Wo Contrast Result [...] extremity. Electronically signed by: Aguila Grijalva M.D. Assessment/Plan 1. Low back pain with left lower extremity sciatica: ??Findings of non-contrast lumbar CT on 10/09/17 as above. Open MRI spine shows L4-L5 disk issues-no need for surgery-d/w Dr. Melendez. ??Hold Xarelto as plan for epidural steroid injection,??Dr. Moyer consulted-apparently office closed till 10-30-d/wDr. João- postponed to 10-31 as pt was on subcut lovenox for DVT prophylaxis-held. ??On dilaudid andnorco prn, gabapentin. Physical/Occupational??Therapy. Itching-due to pain meds, will start benadylprn. ?? 2. Dysuria with recent UTI: UA negative for infection, microscopic hematuria which has been seen previously too, f/u outpatient ?? 3. Dm:will restart oral Dm meds and on??SSI. Elevated blood sugars s/p solumedrol 125 mg IV x 1 in ER, has been on lantus 10 units subcut , increased SSI from low dose to high dose 7-5, continue accucheks, A1C 9.2. community nutrition educator consulted. Pt states Dr. Gale added glimepiride on last visit but patient has not started this yet. 4. LUL: continue CPAP ?? 5. H/o DVT/PE: not within past 30 days. ? 6. History of breast cancer: Double mastectomy and lymph node removal in 2014. ??Other than her oral Aromasin she has not been on any chemo or radiation in the past six months. ??F/u oncology outpatient. ?? 7. HTN monitor on current regimen. ?? dvt ppx: will dc lovenox subcut in anticipation of steroid spinal injection a.m. ?? Full Code * Hipolito Phipps, DO - 10/29/2017 6:22 PM CDT Daily Progress Karly Montero Shelli Admit Date: 10/25/2017 9:20 PM Today's Date: 10/29/2017 Hospital Day: 5 SUBJECTIVE Interval History: Pt seen and examined. No acute events overnight. Denies fevers, chills, sweats, Cp, SOB, abd pain, NVD. States relatively comfortable currently as patient just received pain shot. enoxaparin 40 mg subcutaneous Q12H RODERICK exemestane 25 mg oral Daily fluticasone 1 spray each nostril BID gabapentin 100 mg oral TID [START ON 10/30/2017] insulin glargine 10 Units subcutaneous QAM insulin lispro/aspart 1-4 Units subcutaneous Nightly insulin lispro/aspart 1-7 Units subcutaneous TID with meals lisinopril 20 mg oral Daily oxybutynin XL 5 mg oral Daily polyethylene glycol 17 g oral Daily rOPINIRole 5 mg oral Nightly ??? albuterol HFA, 2 puff ??? cyclobenzaprine, 5 mg, 5 mg at 10/28/172010 ??? dextrose 50%, 25 g ??? dextrose 50%, 25 g ??? dextrose, 15 g ??? glucagon, 1 mg ??? HYDROcodone-acetaminophen, 1 tablet, 1 tablet at 10/29/17 1305 ??? HYDROmorphone, 0.5 mg, 0.5 mg at 10/29/17 1617 ??? ondansetron, 4 mg, 4 mg at 10/28/17 0809 OBJECTIVE Vitals: Most Recent : Vitals: 10/28/17 1455 10/28/17 2157 10/29/17 0710 10/29/17 1624 BP: 133/77 91/58 111/70 116/74 BP Location: Right arm Right arm Right arm Right arm Patient Position: Sitting Lying Lying Sitting Pulse: 78 73 71 76 Resp: 18 18 Temp: 36.7 ??C (98 ??F) 36.7 ??C (98 ??F) 36.3 ??C (97.4 ??F) 36.5 ??C (97.7 ??F) TempSrc: Oral Oral Oral Oral SpO2: 97% 96% 99% 96% Weight: Height: 24hr Min/Max: Temp Min: 36.3 ??C (97.4 ??F) Max: 36.7 ??C (98 ??F) Pulse Min: 71 Max: 76 BP Min: 91/58 Max: 116/74 Resp Min: 18 Max: 18 SpO2 Min: 96 % Max: 99 % FiO2 (%): 21 % Intake/Output Summary (Last 24 hours) at 10/29/17 1822 Last data filed at 10/29/17 0844 Gross per 24 hour Intake 480 ml Output 0 ml Net 480 ml LDA: Peripheral IV 10/25/17 20 G Right Forearm (Active) Placement Date/Time: 10/25/172199 Type: Angiocath Size (Gauge): 20 G Location Orientation: Right Location: Forearm Site Prep: Chlorhexidine Comfort Measures: Position of comfort Local Anesthetic: None Technique: Anatomical landmarks Inserte... Number of days: 3 Physical Exam Constitutional: Awake, NAD HEENT: Atraumatic, normocephalic, EOMI Cardio: RRR, S1/S2, no murmurs Lungs: CTABL, no wheezes, rhonchi or crackles Gi: abd soft, Nt, Nd, +BS Ext: no edema, no cyanosis, pulses intact Neuro: A&Ox3, no focal deficits Lab/Radiology/Diagnostic Review: Recent Results (from the past 24 hour(s)) POCT glucose Collection Time: 10/28/17 8:15 PM Result Value Ref Range Glucose, POC, bld 208 (H) 70 - 199 mg/dL POCT glucose Collection Time: 10/29/17 2:39 AM Result Value Ref Range Glucose, POC, bld 236 (H) 70 - 199 mg/dL POCT glucose Collection Time: 10/29/17 7:59 AM Result Value Ref Range Glucose, POC, bld 174 70 - 199 mg/dL POCT glucose Collection Time: 10/29/17 12:56 PM Result Value Ref Range Glucose, POC, bld 201 (H) 70 - 199 mg/dL POCT glucose Collection Time: 10/29/17 5:53 PM Result Value Ref Range Glucose, POC, bld 149 70 - 199 mg/dL Ct Lumbar Spine Wo Contrast Result Date: [...] Electronically signed by: Maria Elena Shin M.D. Mri Lumbar Spine Wo Contrast Result [...] extremity. Electronically signed by: Aguila Grijalva M.D. ASSESSMENT/PLAN Principal Problem: Acute left-sided low back pain with left-sided sciatica Active Problems: LUL (obstructive sleep apnea) History of DVT (deep vein thrombosis) History of pulmonary embolism Cancer of overlapping sites of left female breast (CMS/HCC) Type 2 diabetes mellitus with neurologic complication, without long-term current use of insulin (CMS/HCC) Radiculopathy, lumbosacral region Dysuria Continue neurontin Continue pain control Plan for epidural on Monday Continue home meds Resume coumadin after epidural Possible DC after DVT proph Full Code * Claribel Barnes, RD - 10/29/2017 12:01 PM CDT Nutrition Assessment Reason for Assessment: Consult/Referral and Follow Up- consult for consistent CHO & heart healthy diet edu Encounter Date: 10/29/17 12:02 PM Nutrition Assessment and Plan: Patient is a 62 y.o. female. Admit Dx: SCIATICA OF LEFT SIDE. Admitted on 10/25/2017, current LOS is 3 days. Pt continues to have adequate intakes through admission and was very interested in diet edu.When asked about typical diet, pt reported typically consuming a small breakfast of oatmeal, yogurt, an egg and a piece of fruit. For lunch it could be leftovers or a sandwich w turkey and low fat chips and fruit, & for dinner grilled/baked meat, fresh vegetable. Reported snacks typically beinga piece of fruit w peanut butter or rice cake and peanut butter. Pt diet appears mostly appropriatefor both low sodium and consistent carbohydrate diets. Encouraged pt to monitor to choose low sodium chips/crackers, peanut butter as well as monitor portion sizes of dinner meal as she reported enjoying pasta often. Encouraged to use proteins and non starchy vegetables as entree rather than pasta,rice or other dense CHO foods. Pt understanding and ready to incorporate dietary changes. Pt also reported having use steroids ADMISSIONS RN and that HgA1c likely alyce due to addition of steroid medication as HgA1c was previously in the 8's Nutrition Screen What diet do you follow at home?: low sugar Have You Recently Lost Weight Without Trying?: No How Much Weight Have You Lost?: 0 kg (0 lb) What is the Timeframe of Weight Change?: Other (Comment) (na; lost 60lb last year) Poor Oral Intake for Four or More Days Prior to Admission: Yes (Comment) Current diet order: Adult Diet Special; 2 GM Sodium, Low Fat, Low Chol, Low Na; Consistent Carb 1600 mario Pt intake is adequate. PO intakes: 100% Nutrition Diagnosis 1: Altered nutrition-related laboratory values Related to: Physiologic issue, Medications (steroid use) Evidenced by: Lab abnormality (HgA1c of 9.2) ?? Interventions: Education, nutrition, Communication (provided edu on consistent carbohydrate and low Na+ diet.) ?? Monitoring and Evaluation: Appetite, Blood glucoses, Weight changes, Discharge plans, Labs, Planof care, PO intake ?? Goals: Oral intake to meet 75% estimated nutritional needs by next assessment, Patient/caregiverable to teach back understanding of role of diet in disease process prior to discharge Estimated needs: ?? Total Kcal/kg Estimated Needs : 1936.5 based on Kcal/k. Type of Weight Used for Estimated Kcals: Current ?? Total Protein Estimated Needs (gm): 119 Protein Needs Based on g/k.5 Type of Weight Used forEstimated Protein : [place]. ?? Total Fluid Estimated Needs: 1936.5 Fluid Needs Based on : 1 ml/kcal. Objective Anthropometrics Weight: 129.1 kg (284 lb 9.8 oz) Admission Weight : 124.7 kg Weight Change: 4.36 kg (9.61 lbs) IBW/kg (Calculated) : 47.6 kg Height: 154.9 cm (5' 0.98 ) Weight in (lb) to have BMI = 25: 132 BMI (Calculated): 53.8 BMI Classification: BMI > or equal to 40.0 Class III 3 Day I/O Summary 10/27 1900 - 10/29 0659 In: 480 [P.O.:480] Out: - Temp: 36.3 ??C (97.4 ??F) Past Medical History: Diagnosis Date ??? [...] apnea Medications and Lab Review: Scheduled Meds: enoxaparin 40 mg subcutaneous Q12H RODERICK exemestane 25 mg oral Daily fluticasone 1 spray each nostril BID gabapentin 100 mg oral TID [START ON 10/30/2017] insulin glargine 10 Units subcutaneous QAM insulin lispro/aspart 1-4 Units subcutaneous Nightly insulin lispro/aspart 1-7 Units subcutaneous TID with meals lisinopril 20 mg oral Daily oxybutynin XL 5 mg oral Daily polyethylene glycol 17 g oral Daily rOPINIRole 5 mg oral Nightly Continuous Infusions: Sodium Date Value Ref Range Status 10/27/2017 133 (L) 135 - 145 mmol/L Final Potassium, pl Date Value Ref Range Status 10/27/2017 4.3 3.5 - 5.1 mmol/L Final BUN Date Value Ref Range Status 10/27/2017 20 8 - 24 mg/dL Final Creatinine Date Value Ref Range Status 10/27/2017 0.82 0.60 - 1.30 mg/dL Final Magnesium Date Value Ref Range Status 10/27/2017 1.7 (L) 1.8 - 2.6 mg/dL Final Calcium Date Value Ref Range Status 10/27/2017 9.0 8.4 - 10.5 mg/dL Final Lab Results Component Value Date HGBA1C 9.2 (H) 10/27/2017 POC Glucose: Recent Labs Lab Units 10/29/17 0759 POC GLUCOSE MONITOR mg/dL 174 Nursing Assessment: Last BM Date: 10/28/17 Bowel Sounds (All Quadrants): Active Tobin Scale Score: 21 Diet Instructions Recommend discharge on low fat, low sodium and consistent carbohydrate diet (60- 75 grams of carbohydrate per meal). Please contact the dietitians office with questions . Nutrition Follow-Up : 11/03/[address],LD * Elo Aceves MD - 10/28/2017 4:56 PM CDT Daily Progress Subjective: Patient lying in bed, no new issues Objective: Vitals: 24hr Min/Max: Temp Min: 36.6 ??C (97.8 ??F) Max: 37 ??C (98.6 ??F) Pulse Min: 61 Max: 78 BP Min: 100/54 Max: 133/77 Resp Min: 18 Max: 20 SpO2 Min: 94 % Max: 100 % Most Recent : Vitals: 10/27/17 1500 10/27/17 2212 10/28/17 0725 10/28/17 1455 BP: 109/65 100/54 124/72 133/77 BP Location: Right arm Right arm Right arm Right arm Patient Position: Lying Lying Sitting Sitting Pulse: 71 69 61 78 Resp: 18 20 18 18 Temp: 36.8 ??C (98.2 ??F) 37 ??C (98.6 ??F) 36.6 ??C (97.8 ??F) 36.7 ??C (98 ??F) TempSrc: Oral Oral Oral Oral SpO2: 99% 94% 100% 97% Weight: Height: I/O last 2 completed shifts: In: 840 [P.O.:840] Out: - I/O this shift: In: 240 [P.O.:240] Out: - Physical Exam: Gen:Well built female Lungs:Symmetrical breath sounds b/l Heart:s1,S2 heard Abdomen:Soft, NT, BS+ Extremities:No edema b/l LE Lab/Radiology/Diagnostic Review: Recent Results (from the past 24 hour(s)) POCT glucose Collection Time: 10/27/17 5:30 PM Result Value Ref Range Glucose, POC, bld 245 (H) 70 - 199 mg/dL POCT glucose Collection Time: 10/27/17 8:18 PM Result Value Ref Range Glucose, POC, bld 297 (H) 70 - 199 mg/dL POCT glucose Collection Time: 10/28/17 3:27 AM Result Value Ref Range Glucose, POC, bld 205 (H) 70 - 199 mg/dL POCT glucose Collection Time: 10/28/17 7:46 AM Result Value Ref Range Glucose, POC, bld 155 70 - 199 mg/dL Urinalysis reflex to microscopic and culture Urine, clean voided Collection Time: 10/28/17 8:18 AM Result Value Ref Range Color, ur Yellow Yellow Clarity, ur Clear Clear Specific gravity, ur 1.016 1.010 - 1.025 pH, urine 5.0 Protein, ur ql Negative Negative Glucose, ur ql Negative Negative Ketones, ur Negative Negative Bilirubin, ur Negative Negative Blood, ur 1+ (A) Negative Urobilinogen, ur <2.0 <2.0 mg/dL Nitrite, ur Negative Negative Leukocyte esterase, ur Negative Negative Urinalysis, microscopic only Collection Time: 10/28/17 8:18 AM Result Value Ref Range WBC, ur 0-5 0 - 5 /HPF RBC, ur 0-5 0 - 5 /HPF Epithelial cells, squamous, ur 1-5 0 - 5 /HPF Mucous, ur Present (A) Hyaline casts, ur 1-5 0 - 10 /LPF POCT glucose Collection Time: 10/28/17 12:43 PM Result Value Ref Range Glucose, POC, bld 277 (H) 70 - 199 mg/dL Ct Lumbar Spine Wo Contrast Result Date: [...] Electronically signed by: Maria Elena Shin M.D. Mri Lumbar Spine Wo Contrast Result [...] extremity. Electronically signed by: Aguila Grijalva M.D. Assessment/Plan 1. Low back pain with left lower extremity sciatica: ??Findings of non-contrast lumbar CT on 10/09/17 as above. Open MRI spine shows L4-L5 disk issues-no need for surgery-d/w Dr. Melendez. ??Hold Xarelto as plan for epidural steroid injection, Dr. Moyer consulted-apparently office closed till 10-30-d/w Dr. Moyer. ??On dilaudid and norco prn, gabapentin. Physical/Occupational??Therapy. ?? 2. Dysuria with recent UTI: UA negative for infection, microscopic hematuria which has been seen previously too, f/u outpatient ?? 3. Dm: hold oral Dm meds and on??SSI. Elevated blood sugars s/p solumedrol 125 mg IV x 1 in ER, gave lantus 10 units subcut x 1 7-5 and 7-6, increased SSI from low dose to high dose 7-5, continue accucheks, A1C 9.2. Will consult informatics educator and fiberglass insulation installer, nursing supervision of insulin administration and education. ?? 4. LUL: continue CPAP ?? 5. H/o DVT/PE: not within past 30 days. ? 6. History of breast cancer: Double mastectomy and lymph node removal in 2014. ??Other than her oral Aromasin she has not been on any chemo or radiation in the past six months. ??F/u oncology outpatient. 7. HTN monitor on current regimen. ?? dvt ppx: lovenox subcut ?? Full Code * Sonali Lui, PT - 10/28/2017 12:08 PM CDT Physical Therapy INITIAL EVALUATION PATIENT'S NAME:Karly Marques :1955 AGE:62 y.o. TIME IN:12:08 TIME OUT:12:40 CURRENT DIAGNOSIS AND HOSPITAL COURSE:patient presents to hospital after 2 weeks of low back pain and sciatica pain. L4-5 bulging disc Patient Active Problem List Diagnosis ??? Restless [...] of insulin (CMS/HCC) ??? Constipation ??? Dysuria Past Medical History: Diagnosis Date ??? Adiposity [...] LIVES WITH: daughter LIVING ENVIRONMENT: one story home with 2 small steps to enter home PRIOR LEVEL OF FUNCTION: patient required some assistance with self care depending on her pain level and dependent for cooking, laundry and houswork. She was ambulating with straight cane and using wheeled walker occasionally. EQUIPMENT OWNED: cane and wheeled walker EQUIPMENT USED: cane and wheeled walker SOCIAL SUPPORTS: daughters PATIENT/FAMILY GOAL: to have less pain so I can manage at home MENTAL STATUS: Alert ORIENTATION: Oriented x 4 OBJECTIVE PRECAUTIONS: fall APPEARANCE/POSTURE: patient lying supine in bed PAIN: Pre-therapy pain level: 08/01 Pain location: back Pain intervention: repositioned Post-therapy pain level/response to intervention: 08/01 LE ASSESSMENTS: Right LE ROM: WFL Left LE ROM: WFL Right LE strength: ankle 4/5, knee ext and hip flex at least 3/5 Left LE strength: ankle 4/5, knee and hip at least 3/5 MOBILITY: Bed mobility: verbal cues for log rolling. Indep with supine to/from sit Transfers: sit to stand supervision Ambulation: Distance: 40' Assistive device: rolling walker Level of assist: supervision Deviations: andra and verbal cues to maintain upright posture Balance/Special Tests: Static sitting balance: good Dynamic sitting balance: not assessed Static standing balance: good using walker Dynamic standing balance: not assessed ASSESSMENT PROBLEM LIST: pain, decreased mobility and ambulation BARRIERS TO LEARNING: none BARRIERS TO DISCHARGE: none REHAB POTENTIAL/PROGNOSIS: good PLAN RECOMMENDATIONS: home and out patient PT TREATMENT PLAN/INTERVENTIONS: functional transfers , ambulation, HEP FREQUENCY: 3-5x /week EQUIPMENT RECOMMENDATIONS: none Refer to multi-disciplinary care plan section for PT specific goals. Refer to multi-disciplinary education section for patient education documentation. If this is the last note, please consider this the discharge summary. * Heaven Awad, OT - 10/28/2017 10:27 AM CDT NOTE / SESSION TYPE: Initial Occupational Therapy Evaluation PATIENT'S NAME: Karly Marques AGE / SEX: 62 y.o. / female ROOM: [place] [id number] : 1955 DATE: 10/28/17 TIME IN: 1025 TIME OUT:1100 ORDER ACKNOWLEDGED (YES OR NO): yes Patient Active Problem List Diagnosis ??? Restless [...] of insulin (CMS/HCC) ??? Constipation ??? Dysuria Past Medical History: Diagnosis Date ??? Adiposity [...] DRAIN N/A 10/24/2014 ADDITIONAL SIGNIFICANT MEDICAL INFORMATION: patient presents to hospital after 2 weeks of low back pain and sciatica pain .L2-3, L3-4 and L4-5 bulging discs PRECAUTIONS (INCLUDING WEIGHT-BEARING): fall CAREGIVER PRESENT (YES OR NO): no VITAL SIGNS: HEART RATE AT REST: 71 HEART RATE WITH ACTIVITY: 75 O2 SATS AT REST: 97 % O2 SATS WITH ACTIVITY: 97 % THERAPY PAIN: PRE-THERAPY PAIN LEVEL: 2/10 PAIN LOCATION:back, lumbar PAIN INTERVENTION(S): pain medication POST-THERAPY PAIN LEVEL:3/10 PAIN SCALE USED: 0-10 PRIOR FUNCTION: LIVES WITH: daughter OTHER SOCIAL SUPPORTS / ASSISTANCE AVAILABLE: daughters LIVING ENVIRONMENT (TYPE OF RESIDENCE / ENTRANCE ACCESSIBILITY):1 story home with 2 gordon steps enter, basement but patient does not utilize BATHROOM LOCATION / SETUP / EQUIPMENT: tub/shower, shower chair and grab bars PRIOR LEVEL OF FUNCTION: Assistance with dressing, transfers, bathing depending on pain level, dependent for IADLs except medication management with assistance MOBILITY EQUIPMENT: cane, WW AMBULATION DEVICE USED PRIOR TO ADMISSION: cane [place] occasionally COMMUNITY ACCESS / DRIVING: daughter SOCIAL ROLES / HOBBIES:enjoys painting, crafts, reading, and planting PATIENT / FAMILY GOAL(S): get back to better quality of life COGNITION / ORIENTATION: PATIENT ORIENTED TO:x4 FOLLOWING COMMANDS: WFL COMMUNICATION: [facility] COGNITIVE SCREENING: WF UE ROM / STRENGTH / COORDINATION: AROM - RIGHT: WFL STRENGTH - RIGHT: 4+/5 throughout except shoulder flex/ext, ab/ad, elbow flex/exten 3/5 AROM - LEFT:WFL STRENGTH - LEFT:4+/5 throughout except shoulder flex/ext, abd/add, elbow flex/exten 3/5 HAND DOMINANCE:right BELL NECK HAMMERER STRENGTH (RIGHT): good BELL NECK HAMMERER STRENGTH (LEFT): good RIGHT COORDINATION: intact LEFT COORDINATION: intact BALANCE: STATIC SITTING: good unsupported DYNAMIC SITTING: good- unsupported STATIC STANDING: good unsupported DYNAMIC STANDING: good- unsupported MOBILITY / TRANSFERS: TRANSFER(S): EOB to bedside chair CGA using cane, bedside chair to bed using cane CGA, would benefit from WW vs cane LIVING SKILLS: UE DRESSING (OVERALL ASSIST LEVEL):SBA {COMPONENTS PERFORMANCE: 4/4 ITEM: machine assembler for puller over shirt LOCATION:sitting EOB LE DRESSING (OVERALL ASSIST LEVEL):max A COMPONENTS PERFORMANCE: 2/5, don bilateral footies with max A, thread RLE in pants SBA, LLE thread with min A, machine assembler for puller over hips CGA for steadying ITEM:footies, elastic pants LOCATION: sitting/standing EOB THERAPY PLAN: REHAB POTENTIAL (PROGNOSIS): good PROBLEM LIST: decreased endurance and strength for ADLs and IADLs OT RECOMMENDATIONS: return home with home health SUPERVISION: intermittent BARRIERS TO DISCHARGE:pain FREQUENCY OF THERAPY: 3-5 TIMES / WEEK SHORT TERM GOALS: Multi-Disciplinary Problems (from Occupational Therapy) Active Problems Problem: OT [facility] Start Date: 10/28/17 Goal Start Date End Date [facility] 1 10/28/17 -- Goal Details: Patient will complete bathing with min A 1x using AE Goal Start Date End Date [facility] 2 10/28/17 -- Goal Details: Patient will complete LE dressing with min A using AE 1x Goal Start Date End Date [facility] 3 10/28/17 -- Goal Details: Patient will complete bed/chair/toilet transfer mod I 1x Goal Start Date End Date [facility] 4 10/28/17 -- Goal Details: Patient will verbalize 2/3 energy conservation techniques for ADLs after review of information 1x Goal Start Date End Date [facility] 5 10/28/17 -- Goal Details: Patient will complete HEP UE AROM and strengthening exercises for bilateral shoulder with SBA 1x IF THIS IS THE LAST NOTE, CONSIDER THIS THE DISCHARGE SUMMARY Heaven Awad OT 10/28/17 10:27 AM * Elo Aceves MD - 10/27/2017 7:47 PM CDT Daily Progress Subjective: Patient seen after MRI, lying in bed, no new issues, received an extra dose of dilaudid before MRI Objective: Vitals: 24hr Min/Max: Temp Min: 36.6 ??C (97.9 ??F) Max: 36.9 ??C (98.5 ??F) Pulse Min: 54 Max: 76 BP Min: 96/49 Max: 109/65 Resp Min: 18 Max: 18 SpO2 Min: 94 % Max: 99 % Most Recent : Vitals: 10/26/17 1539 10/26/17 2259 10/27/17 0720 10/27/17 1500 BP: 91/53 96/48 96/49 109/65 BP Location: Right arm Right arm Right arm Right arm Patient Position: Lying Lying Lying Lying Pulse: 76 54 71 Resp: 18 18 18 18 Temp: 36.7 ??C (98 ??F) 36.9 ??C (98.5 ??F) 36.6 ??C (97.9 ??F) 36.8 ??C (98.2 ??F) TempSrc: Oral Oral Oral Oral SpO2: 95% 96% 94% 99% Weight: Height: I/O last 2 completed shifts: In: 720 [P.O.:720] Out: - I/O this shift: In: 120 [P.O.:120] Out: - Physical Exam: Gen:Well built female Lungs:Symmetrical breath sounds b/l Heart:s1,S2 heard Abdomen:Soft, NT, BS+ Extremities:No edema b/l LE Lab/Radiology/Diagnostic Review: Recent Results (from the past 24 hour(s)) POCT glucose Collection Time: 10/26/17 9:05 PM Result Value Ref Range Glucose, POC, bld 420 (H) 70 - 199 mg/dL POCT glucose Collection Time: 10/26/17 9:09 PM Result Value Ref Range Glucose, POC, bld 408 (H) 70 - 199 mg/dL POCT glucose Collection Time: 10/27/17 4:41 AM Result Value Ref Range Glucose, POC, bld 360 (H) 70 - 199 mg/dL CBC with auto differential Collection Time: 10/27/17 6:29 AM Result Value Ref Range WBC 10.4 (H) 3.8 - 9.9 K/cumm RBC 3.87 (L) 3.90 - 5.20 M/cumm Hgb 10.5 (L) 11.9 - 15.5 g/dL Hct 34.8 (L) 35.6 - 45.5 % MCV 89.9 81.3 - 96.4 fL MCH 27.1 27.1 - 33.3 pg MCHC 30.2 (L) 32.3 - 35.7 g/dL RDW CV 14.9 11.1 - 14.9 % RDW SD 49.5 (H) 35.7 - 48.1 fL Plt 274 150 - 400 K/cumm MPV 10.2 9.1 - 12.3 fL NRBC Abs 0.00 0.00 - 0.01 K/cumm Basic metabolic panel Collection Time: 10/27/17 6:29 AM Result Value Ref Range Sodium 133 (L) 135 - 145 mmol/L Potassium, pl 4.3 3.5 - 5.1 mmol/L Chloride 101 100 - 114 mmol/L CO2 27 22 - 32 mmol/L Anion Gap 9 8 - 16 mmol/L BUN 20 8 - 24 mg/dL Creatinine 0.82 0.60 - 1.30 mg/dL Glucose 349 (H) 70 - 199 mg/dL Calcium 9.0 8.4 - 10.5 mg/dL Magnesium Collection Time: 10/27/17 6:29 AM Result Value Ref Range Magnesium 1.7 (L) 1.8 - 2.6 mg/dL Differential, auto Collection Time: 10/27/17 6:29 AM Result Value Ref Range Neutrophil absolute 6.2 1.7 - 6.5 K/cumm Immature granulocyte absolute 0.0 0.0 - 0.1 K/cumm Lymphocytes absolute 3.1 0.8 - 3.3 K/cumm Monocyte absolute 0.9 (H) 0.2 - 0.8 K/cumm Eosinophils absolute 0.1 0.0 - 0.5 K/cumm Basophils, abs 0.0 0.0 - 0.1 K/cumm Neutrophils 60.0 % Immature granulocytes 0.4 % Lymphocytes 29.5 % Monocytes 8.7 % Eosinophils 1.0 % Basophils 0.4 % eGFR Collection Time: 10/27/17 6:29 AM Result Value Ref Range GFR 77 mL/min/1.73 m2 POCT glucose Collection Time: 10/27/17 7:49 AM Result Value Ref Range Glucose, POC, bld 317 (H) 70 - 199 mg/dL POCT glucose Collection Time: 10/27/17 5:30 PM Result Value Ref Range Glucose, POC, bld 245 (H) 70 - 199 mg/dL Ct Lumbar Spine Wo Contrast Result Date: [...] Electronically signed by: Maria Elena Shin M.D. Mri Lumbar Spine Wo Contrast Result [...] extremity. Electronically signed by: Aguila Grijalva M.D. Assessment/Plan 1. Low back pain with left lower extremity sciatica: ??Findings of non-contrast lumbar CT on 10/09/17 as above. Open MRI spine shows L4-L5 disk issues-no need for surgery-d/w Dr. Melendez. ??Hold Xarelto as plan for epidural steroid injection, Dr. Moyer consulted-apparently office closed till 10-30-d/w Dr. Moyer. ??On dilaudid and norco prn, gabapentin. Physical/Occupational Therapy. ?? 2. Dysuria with recent UTI: check a UA reflex ?? 3. Dm: hold oral Dm meds and on SSI. Elevated blood sugars s/p solumedrol 125 mg IV x 1 in ER, gavelantus 10 units subcut x 1 7-5 and 7-6, increased SSI from low dose to high dose 7-5, continue accucheks, will check A1C. ?? 4. LUL: continue CPAP ?? 5. H/o DVT/PE: not within past 30 days. ??Okay to temporarily hold Xarelto, recent ultrasound LLE negative for DVT. ?? 6. History of breast cancer: Double mastectomy and lymph node removal in 2014. ??Other than her oral Aromasin she has not been on any chemo or radiation in the past six months. ??F/u oncology outpatient. ?? dvt ppx: lovenox subcut ?? Full Code * Ko Melendez MD - 10/27/2017 7:55 AM CDT Consult as call by Dr. Aceves yesterday is a accepted. Patient is known to me and is scheduled for MRI[facility] spine at [facility]. I will see the patient after the MRI scan is done for interpretation and recommendation thank you * Elo Aceves MD - 10/26/2017 3:34 PM CDT Daily Progress Subjective: Patient lying in bed, feels much better in terms of pain with current pain regimen Objective: Vitals: 24hr Min/Max: Temp Min: 36.7 ??C (98 ??F) Max: 37 ??C (98.6 ??F) Pulse Min: 71 Max: 101 BP Min: 98/61 Max: 134/68 Resp Min: 14 Max: 29 SpO2 Min: 93 % Max: 98 % Most Recent : Vitals: 10/26/17 0441 10/26/17 0730 10/26/17 0815 10/26/17 1106 BP: 105/61 110/67 BP Location: Right arm Right arm Patient Position: Lying Lying Pulse: 75 71 Resp: 20 18 16 Temp: 36.9 ??C (98.4 ??F) 36.7 ??C (98 ??F) TempSrc: Oral Oral SpO2: 98% 95% Weight: 129.1 kg (284 lb 9.8 oz) Height: 154.9 cm (5' 1 ) 154.9 cm (5' 0.98 ) No intake/output data recorded. I/O this shift: In: 120 [P.O.:120] Out: - Physical Exam: Gen:Well built female Lungs:Symmetrical breath sounds b/l Heart:s1,S2 heard Abdomen:Soft, NT, BS+ Extremities:No edema b/l LE Neuro:Alert, awake, oriented to self and surroundings, is able to move all extremities Lab/Radiology/Diagnostic Review: Recent Results (from the past 24 hour(s)) POCT glucose Collection Time: 10/26/17 2:09 AM Result Value Ref Range Glucose, POC, bld 315 (H) 70 - 199 mg/dL POCT glucose Collection Time: 10/26/17 4:57 AM Result Value Ref Range Glucose, POC, bld 439 (H) 70 - 199 mg/dL CBC with auto differential Collection Time: 10/26/17 7:38 AM Result Value Ref Range WBC 7.8 3.8 - 9.9 K/cumm RBC 4.19 3.90 - 5.20 M/cumm Hgb 11.6 (L) 11.9 - 15.5 g/dL Hct 36.6 35.6 - 45.5 % MCV 87.4 81.3 - 96.4 fL MCH 27.7 27.1 - 33.3 pg MCHC 31.7 (L) 32.3 - 35.7 g/dL RDW CV 14.6 11.1 - 14.9 % RDW SD 46.7 35.7 - 48.1 fL Plt 294 150 - 400 K/cumm MPV 9.8 9.1 - 12.3 fL NRBC Abs 0.00 0.00 - 0.01 K/cumm Basic metabolic panel Collection Time: 10/26/17 7:38 AM Result Value Ref Range Sodium 133 (L) 135 - 145 mmol/L Potassium, pl 4.6 3.5 - 5.1 mmol/L Chloride 102 100 - 114 mmol/L CO2 23 22 - 32 mmol/L Anion Gap 13 8 - 16 mmol/L BUN 17 8 - 24 mg/dL Creatinine 0.81 0.60 - 1.30 mg/dL Glucose 414 (H) 70 - 199 mg/dL Calcium 9.4 8.4 - 10.5 mg/dL Magnesium Collection Time: 10/26/17 7:38 AM Result Value Ref Range Magnesium 1.7 (L) 1.8 - 2.6 mg/dL Protime-INR Collection Time: 10/26/17 7:38 AM Result Value Ref Range PT 12.8 9.5 - 13.0 sec INR 1.13 0.90 - 1.20 aPTT Collection Time: 10/26/17 7:38 AM Result Value Ref Range APTT 32.6 25.0 - 37.0 sec Differential, auto Collection Time: 10/26/17 7:38 AM Result Value Ref Range Neutrophil absolute 6.5 1.7 - 6.5 K/cumm Immature granulocyte absolute 0.0 0.0 - 0.1 K/cumm Lymphocytes absolute 1.1 0.8 - 3.3 K/cumm Monocyte absolute 0.0 (L) 0.2 - 0.8 K/cumm Eosinophils absolute 0.0 0.0 - 0.5 K/cumm Basophils, abs 0.0 0.0 - 0.1 K/cumm Neutrophils 83.9 % Immature granulocytes 0.6 % Lymphocytes 14.5 % Monocytes 0.6 % Eosinophils 0.1 % Basophils 0.3 % eGFR Collection Time: 10/26/17 7:38 AM Result Value Ref Range GFR 78 mL/min/1.73 m2 POCT glucose Collection Time: 10/26/17 8:06 AM Result Value Ref Range Glucose, POC, bld 380 (H) 70 - 199 mg/dL POCT glucose Collection Time: 10/26/17 12:16 PM Result Value Ref Range Glucose, POC, bld 357 (H) 70 - 199 mg/dL Ct Lumbar Spine Wo Contrast Result Date: [...] Electronically signed by: Maria Elena Shin M.D. Us Vein Duplex Lower Extremity Left [...] extremity. Electronically signed by: Aguila Grijalva M.D. Assessment/Plan 1 Low back pain with left lower extremity sciatica: No red flag symptoms to justify an emergent MRIbut given the subacute urinary incontinence she likely would benefit from an MRI sooner rather thanlater. Findings of non-contrast lumbar CT on 10/09/17 as above. Open MRI spine requested.Will request Dr. Melendez's input who has been following patient. Hold Xarelto as plan for epidural steroid injection Dr. Moyer consulted-apparently office closed till 10-30. On dilaudid and norco prn, gabapentin. Physical/Occupational Therapy. ?? 2. Dysuria with recent UTI: check a UA reflex ?? 3. Dm: hold oral Dm meds and on SSI. Elevated blood sugars today as patient received solumedrol 125mg IV x 1, gave lantus 10 units subcut x 1, increased SSI from low dose to high dose, continue accucheks. ?? 4. LUL: continue CPAP ?? 5. H/o DVT/PE: not within past 30 days. Okay to temporarily hold Xarelto, recent ultrasound LLE negative for DVT. ?? 6. History of breast cancer: Double mastectomy and lymph node removal in 2014. Other than her oral Aromasin she has not been on any chemo or radiation in the past six months. F/u oncology outpatient. ?? dvt ppx: lovenox subcut ?? Full Code * Sonali Liu, PT - 10/26/2017 2:46 PM CDT Physical Therapy INITIAL EVALUATION PATIENT'S NAME:Karly Marques :1955 AGE:62 y.o. TIME IN:14:47 TIME OUT:14:58 CURRENT DIAGNOSIS AND HOSPITAL COURSE:patient presents to hospital after 2 weeks of low back pain and sciatica pain .L2-3, L3-4 and L4-5 bulging discs Patient Active Problem List Diagnosis ??? Restless [...] of insulin (CMS/HCC) ??? Constipation ??? Dysuria Past Medical History: Diagnosis Date ??? Adiposity [...] SOFT TISSUE ABSCESS DRAIN N/A 10/24/2014 SUBJECTIVE Patient states that she is currently having too much back pain to do any therapy this afternoon. She is waiting to hear back about pain management coming to see her. She has been repositioning herself in bed and sitting up at edge of bed to manage her pain. Asks that therapy come back tomorrow. Spoke to patient about importance of proper positioning and therapy. Patient understands and will try therapy tomorrow. * Kerline Cedeno, RD - 10/26/2017 1:59 PM CDT Nutrition Assessment Reason for Assessment: Screened at Nutrition Risk, Initial Nutrition Assessment and Consult/Referral Encounter Date: 10/26/17 1:59 PM Nutrition Assessment and Plan: Patient is a 62 y.o. female. Admit Dx: SCIATICA OF LEFT SIDE. Admitted on 10/25/2017, current LOS is 0 days. Consult generated from RN screen for poor appetite. No significant Wt loss noted per chart review Wt Hx. Pt with 100% PO intake x1 meal. Will cont to monitor intake trends and plan of care. Nutrition Screen What diet do you follow at home?: low sugar Have You Recently Lost Weight Without Trying?: No How Much Weight Have You Lost?: 0 kg (0 lb) What is the Timeframe of Weight Change?: Other (Comment) (na; lost 60lb last year) Poor Oral Intake for Four or More Days Prior to Admission: Yes (Comment) Current diet order: Adult Diet Special; 2 GM Sodium, Low Fat, Low Chol, Low Na; Consistent Carb 1600 mario Pt intake is adequate. PO intakes: 100% x1 Nutrition Diagnosis 1: Overweight/Obesity Related to: Food choices Evidenced by: BMI 40 or more ?? Interventions: Communication ?? Monitoring and Evaluation: PO intake, Weight changes, Labs, Plan of care ?? Goals: Oral intake to meet 75% estimated nutritional needs by next assessment, Adequate nutrition to meet estimated needs by next assessment Estimated needs: ?? Total Kcal/kg Estimated Needs : 1936.5 based on Kcal/k. Type of Weight Used for Estimated Kcals: Current ?? Total Protein Estimated Needs (gm): 119 Protein Needs Based on g/k.5 Type of Weight Used forEstimated Protein : [place]. ?? Total Fluid Estimated Needs: 1936.5 Fluid Needs Based on : 1 ml/kcal. Objective Anthropometrics Weight: 129.1 kg (284 lb 9.8 oz) Admission Weight : 124.7 kg Weight Change: 4.36 kg (9.61 lbs) IBW/kg (Calculated) : 47.6 kg Height: 154.9 cm (5' 0.98 ) Weight in (lb) to have BMI = 25: 132 BMI (Calculated): 53.8 3 Day I/O Summary No intake/output data recorded. Temp: 36.7 ??C (98 ??F) Past Medical [...] Review: Scheduled Meds: exemestane 25 mg oral Daily fluticasone 1 spray each nostril BID gabapentin 100 mg oral TID heparin 5,000 Units subcutaneous Q8H RODERICK insulin lispro/aspart 1-4 Units subcutaneous Nightly insulin lispro/aspart 1-7 Units subcutaneous TID with meals lisinopril 20 mg oral Daily oxybutynin XL 5 mg oral Daily polyethylene glycol 17 g oral Daily rOPINIRole 5 mg oral Nightly Continuous Infusions: Sodium Date Value Ref Range Status 10/26/2017 133 (L) 135 - 145 mmol/L Final Potassium, pl Date Value Ref Range Status 10/26/2017 4.6 3.5 - 5.1 mmol/L Final BUN Date Value Ref Range Status 10/26/2017 17 8 - 24 mg/dL Final Creatinine Date Value Ref Range Status 10/26/2017 0.81 0.60 - 1.30 mg/dL Final Magnesium Date Value Ref Range Status 10/26/2017 1.7 (L) 1.8 - 2.6 mg/dL Final Calcium Date Value Ref Range Status 10/26/2017 9.4 8.4 - 10.5 mg/dL Final Lab Results Component Value Date HGBA1C 8.0 (H) 09/12/2016 Nursing Assessment: Last BM Date: 10/25/17 Bowel Sounds (All Quadrants): Active, Present Tobin Scale Score: 20 Diet Instructions Recommend discharge on low fat, low sodium and consistent carbohydrate diet (60- 75 grams of carbohydrate per meal). Please contact the dietitians office with questions . Nutrition Follow-Up : 11/01/[address],LD documented in this encounter H&P Notes * Remi Garza MD - 10/26/2017 3:48 AM CDT General Medicine History and Physical DATE OF SERVICE: 10/26/17 PRIMARY CARE PHYSICIAN: Dr. Justen Gale SUBJECTIVE: Patient is a 62 y.o. female with a chief complaint of low back pain. HPI: Starting about 2 weeks ago, patient had lower back pain that runs all across her back but more so on the left. The severity has waxed and waned over the past two weeks but yesterday became excruciating requiring her to come to the hospital. She has radiation of the pain down her left side of her thigh and buttock cheek and also down her left leg below the knee. She described the pain as swelling and sharp. The pain was initially 8/10 severity but is now 3/10 severity with pain control in the ED. The pain is always there but worse with activity. She describes no saddle anesthesia or stool incontinence. She does however have urine incontinence for the past two weeks but without acute change within those two weeks. She was recently admitted 10/22-10/23 with this pain and the plan was for her to get an open MRI due toher inability to tolerate a closed MRI because of her size. She was also referred to Dr. Moyer for pain management. He recommended epidural steroid shots but needed the Xarelto held for 48 hours. Thesteroid shot and the MRI was to happen on 10/30/17. She is stilll taking her Xarelto as of now. She was also seen by Dr. Melendez last admission though he stated he did not think her a surgical candidate. Nonetheless he still awaits an MRI reading. Noncontrast Lumbar spine CT from 10/09/17 showed: 1. L2-3 Bulging disc with facet arthropathy and laxity of the ligamentum flavum. Epidural lipomatosis with ventral sac effacement and mild recess stenosis both central and lateral 2. L3-4 degenerated bulging disc facet arthropathy, mild to moderate L3-4 foraminal stenosis, and laxity of the ligamentum flavum. 3. L4-5 bulging disc with moderate to severe left and moderate right facet arthropathy (small rightsubarticular and foraminal protrusion with L3 root encroachment) and ligamentum flavum laxity with encroachment of the lateral recess. 4. Rudimentary incomplete disc at T5-S1 5. Bilateral SI joint sclerosis/OA 6. Transitional vertebrae Otherwise mild disease Past Medical History: Diagnosis Date ??? Adiposity [...] Medication Sig Dispense Refill Last Dose ??? rivaroxaban (XARELTO) 10 mg tablet Take 10 mg by mouth daily. 10/25/2017 ??? cyclobenzaprine (FLEXERIL) 5 mg tablet Take 1 tablet (5 mg total) by mouth 3 (three) times a day as needed for muscle spasms for up to 30 doses. 30 tablet 0 ??? exemestane (AROMASIN) 25 mg tablet Take 25 mg by mouth daily. After a meal 10/22/2017 at 2100 ??? HYDROcodone-acetaminophen (NORCO) 5-325 mg per tablet Take 1 tablet by mouth every 8 (eight) hours as needed for pain (1 tablet for mild to moderate pain or 2 tablets for severe pain). Do not exceed 8 tablets/day. 25 tablet 0 ??? lisinopril (PRINIVIL,ZESTRIL) 20 mg tablet take 1 Tablet (20MG) by oral route every day (Patient taking differently: Take 20 mg by mouth daily. ) 0 10/22/2017 at 2100 ??? oxybutynin (DITROPAN) 5 mg tablet take 1 tablet by oral route every day (Patient taking differently: Take 5 mg by mouth daily. ) 0 0 10/22/2017 at 2100 ??? polyethylene glycol (MIRALAX) 17 gram/dose powder Mix 1 scoop (17 g) in 8 oz of water and drinkdaily. 527 g 0 10/21/2017 at 0900 ??? rOPINIRole (REQUIP) 5 mg tablet take 1 tablet (5MG) by oral route every day at bedtime (Patienttaking differently: Take 5 mg by mouth nightly. ) 0 10/22/2017 at 2100 ??? sitaGLIPtin-metformin (JANUMET) 50-1,000 mg per tablet Take 1 tablet by mouth. 10/22/2017 at 2100 Allergies Allergen Reactions ??? Ceftriaxone Anaphylaxis R [...] Other Family history of restless leg syndrome; Prior to Admission medications Medication Sig Start Date End Date Taking? Authorizing Provider rivaroxaban (XARELTO) 10 mg tablet Take 10 mg by mouth daily. Yes Historical Provider, cyclobenzaprine (FLEXERIL) 5 mg tablet Take 1 tablet (5 mg total) by mouth 3 (three) times a day asneeded for muscle spasms for up to 30 doses. 10/23/17 Elo Aceves MD exemestane (AROMASIN) 25 mg tablet Take 25 mg by mouth daily. After a meal Historical Provider, gabapentin (NEURONTIN) 100 mg capsule Take 1 capsule (100 mg total) by mouth 3 (three) times a day.10/23/17 11/22/17 Elo Aceves MD HYDROcodone-acetaminophen (NORCO) 5-325 mg per tablet Take 1 tablet by mouth every 8 (eight) hours as needed for pain (1 tablet for mild to moderate pain or 2 tablets for severe pain). Do not exceed 8 tablets/day. 10/23/17 Elo Aceves MD lisinopril (PRINIVIL,ZESTRIL) 20 mg tablet take 1 Tablet (20MG) by oral route every day Patient taking differently: Take 20 mg by mouth daily. 05/11/12 Radha Leyva, oxybutynin (DITROPAN) 5 mg tablet take 1 tablet by oral route every day Patient taking differently: Take 5 mg by mouth daily. 12/12/13 Jcarlos Nails MD polyethylene glycol (MIRALAX) 17 gram/dose powder Mix 1 scoop (17 g) in 8 oz of water and drink daily. 08/15/17 Devonte Cruz MD rOPINIRole (REQUIP) 5 mg tablet take 1 tablet (5MG) by oral route every day at bedtime Patient taking differently: Take 5 mg by mouth nightly. 05/11/12 Radha Sumaya Mohamudshaw, sitaGLIPtin-metformin (JANUMET) 50-1,000 mg per tablet Take 1 tablet by mouth. Historical Provider, Review of Systems Review of Systems Constitutional: Negative for fever. HENT: Negative for sore throat. Respiratory: Negative for cough and shortness of breath. Cardiovascular: Negative for chest pain. Gastrointestinal: Positive for constipation. Negative for diarrhea and vomiting. Genitourinary: Positive for dysuria. Incontinence as per HPI Musculoskeletal: Negative for arthralgias. Skin: Negative for rash. Neurological: Positive for weakness and numbness. In LLE for couple of weeks with no change since discharge Psychiatric/Behavioral: Negative for agitation. OBJECTIVE: Vitals: Arrival Vitals Temp 10/25/17 212 37 ??C (98.6 ??F) Pulse 10/25/172123 100 Resp 10/25/172123 18 BP 10/25/172123 134/68 SpO2 10/25/172123 96 % Temp src 10/25/172123 Oral Heart Rate Source 10/25/172144 Monitor Patient Position 10/25/17 214 Lying BP Location 10/25/17 2215 Right arm FiO2 (%) -- Most Recent : Vitals: 10/26/17 0230 10/26/17 0300 10/26/17 0315 10/26/17 0441 BP: 118/87 121/85 105/61 BP Location: Right arm Right arm Patient Position: Lying Lying Pulse: 77 79 79 75 Resp: 14 20 Temp: 36.9 ??C (98.4 ??F) TempSrc: Oral SpO2: 98% 98% 98% 98% Weight: 129.1 kg (284 lb 9.8 oz) Height: 154.9 cm (5' 1 ) Physical exam: General appearance: appears stated age and cooperative Head: Normocephalic, without obvious abnormality, atraumatic Eyes: conjunctivae clear Neck: no JVD and supple, symmetrical, trachea midline Lungs: clear to auscultation bilaterally and no rubs Heart: Regular rate and rhythm, S1, S2 normal, 2/6 systolic murmur, no click, rub, or gallop Abdomen: soft, non-tender; no masses, no organomegaly Extremities: extremities normal warm and well-perfused Skin: Skin color texture, turgor normal. No rashes or lesions Neurologic: Alert and oriented x4, Markedly diminished strength in the left hip flexors and extensors Mildly diminished left knee flexor/extensor Decreased sensation in the LLE Probably normal heel to de leon bilaterally accounting for pain. Lab/Radiology/Diagnostic Review: Recent Results (from the past 24 hour(s)) POCT glucose Collection Time: 10/26/17 2:09 AM Result Value Ref Range Glucose, POC, bld 315 (H) 70 - 199 mg/dL POCT glucose Collection Time: 10/26/17 4:57 AM Result Value Ref Range Glucose, POC, bld 439 (H) 70 - 199 mg/dL Ct Lumbar Spine Wo Contrast Result Date: [...] Electronically signed by: Maria Elena Shin M.D. Us Vein Duplex Lower Extremity Left [...] extremity. Electronically signed by: Aguila Grijalva M.D. ASSESSMENT/PLAN: Principal Problem: Acute left-sided low back pain with left-sided sciatica Active Problems: Radiculopathy, lumbosacral region Dysuria LUL (obstructive sleep apnea) Type 2 diabetes mellitus with neurologic complication, without long-term current use of insulin ([facility]) History of DVT (deep vein thrombosis) History of pulmonary embolism Cancer of overlapping sites of left female breast ([facility]) 1 Low back pain with left lower extremity sciatica: No red flag symptoms to justify an emergent MRIbut given the subacute urinary incontinence she likely would benefit from an MRI sooner rather thanlater. Findings of non-contrast lumbar CT on 10/09/17 as per HPI. We will need to look into the feasibility of an open MRI in the AM as she does not fit the closed MRI. Hold Xarelto as was the plan for epidural steroid injection and consult Dr. Moyer. Dr. Melendez has stated she is not surgical candidate, but we may consult him pending the severity ofthe results of the MRI Physical Therapy 2. Dysuria with recent UTI: check a UA reflex 3. Dm: hold oral Dm meds and give SSI 4. LUL: continue CPAP 5. H/o DVT/PE: not within past 30 days. Okay to temporarily hold Xarelto 6. History of breast cancer: Double mastectomy and lymph node removal in 2014. Other than her oral Aromasin she has not been on any chemo or radiation in the past six months. No evidence of recurrentdisease at this time per patient. dvt ppx: heparin sq Full Code ESTIMATED LENGTH OF STAY: observation status having stayed one midnight so far as of 10/26/17 documented in this encounter Consult Notes * Ko Melendez MD - 10/27/2017 7:25 PM CDTAssociated Order(s): IP CONSULT TO ORTHOPEDIC SURGERY Orthopedic consultation requested because of low back pain. I had previous contact with this lady just about a week ago. Her main symptoms are low back pain occasionally that would radiate toes left buttock and left thigh but not below the knee she does not really have a true sciatic symptoms. The pain is currently constant gets aggravated with mechanical activities she does not have any bladder or bowel dysfunction. During her last hospitalization we haddone the CT scan of the lumbar spine noting some lumbar facet arthropathy with very mild stenosis. Lumbar MRI scan was requested unfortunately the same could not be done because of patient's body habitus. We could not fit her into the MRI scan at [facility] and she reported that earlier shehad attempted to get an MRI scan at [facility] and was not successful because of her body habitus. Patient weighs about 290 lb has a BMI of 53. In any case at that time lumbar AP dural steroid injection was recommended. However pain management physician could not do it because she was on Xarelto. It was advised that she has discontinue the Xarelto and see pain management physician oli outpatient. Unfortunately before the same could be achieved she became acutely worse presented to the emergency room and now is being admitted. Currently describes predominantly left-sided low back pain which radiates towards the left buttock but not below. She denies bladder or bowel dysfunction she denies any tingling numbness weakness of lower extremities. The pain currently which is bad has been present for the last several years with current acute exacerbation. She has no fever. Past medical history has been documented review of systems including cardiopulmonary system has been documented before. Physical examination overweight 62-year-old female in no acute distress. Lumbar spine shows normal skin no deformity. Lumbar tenderness left buttock tenderness negative straight leg raising sign bilaterally in the lying down position. Her reflex sensory motor exam lower extremities are normal no atrophy and prefers circulation appears adequate. Earlier today patient had lumbar MRI scan performed at the open unit in [facility]. I have personally seen this MRI scan and also the radiologist's interpretation of the same. He has some lumbarfacet arthropathy at L3-4 associated with very mild degree of lumbar spinal stenosis. Beyond that her disc spaces are normal her alignment is satisfactory. Clearly this is a nonsurgical problem. I would not recommend surgery patient is not requesting surgery either. Pain Management has been consulted they are going to do epidural steroid injection on her on Monday and that is right treatment for her at least at this point in time. Once patient's pain is control patient can be discharged from orthopedic perspective and she will follow with pain management thank you for this consult. documented in this encounter Nursing Notes * Nydia Maciel RN - 10/30/2017 11:25 AM CDT This was a follow-up visit from last week. Transport was getting ready to take her down to pain management. Today we reviewed her current A1c results, 9.2%, and target goal. My contact information was provided. The patient was encouraged to call me with diabetes related questions. Nydia Maciel RN * Nydia Maciel RN - 10/27/2017 11:11 AM CDT Karly Montero Shelli [phone] Remi Garza MD Pre-Education Assessment Visit Type: Initial (This was a short visit. EMS ambulance service arrived to take patient off the floor for testing.) Introduction: ID verified Provider: Medical/Medical Claims Analyst/PCP (Patient states that she recently started seeing a new PCP) Treatment Prior To Admission: Oral medications (Takes Janumet mg qd. Patient states that her new doctor recently added another oral medication for her diabetes. She can not remember the name of the mediation but she has not started taking it yet. ) Knowledge Base: Intermediate Hemaglobin A1c: Unknown (Her last A1c was on 08/21/17 and it was 8.3%.) Home Testing: Weekly (Only monitors 3x a week. Encouraged bid testing. ) Exercise Habits: Sedentary Hypoglycemia: Patient unaware Home Supplies: No assistance needed (Patient states she has a working meter and testing supplies athome. ) Diabetes Management Education Provided: Please see the Patient Education Activity Inpatient Recommendations RN to reinforce with patient: Consistent carb diet, Carb counting Discharge Recommendations Blood Glucose Testing Regimen: 2 times per day Diabetes/Education Follow Up: Primary Care Provider, Outpatient Diabetes Education (Referral provided to outpatient RD.) My contact information was provided. The patient was encouraged to call me with diabetes related questions. Nydia Maciel RN, It Help Desk Analyst 10/27/2017 11:11 AM documented in this encounter ED Notes * Ryan Costa Jr., MD - 10/25/2017 10:26 PM CDT HPI Chief Complaint Patient presents with ??? Back Pain 10:15 PM 10/25/2017 - Patient is a 62 y/o female former smoker with a h/o restless leg syndrome, HTN,DVT, PE, DM, breast cancer s/p double mastectomy, CHF, cholecystectomy, and oophorectomy presentingto the ED via private vehicle c/o unchanging excruciating lower back pain radiating down into herLLE for approximately the past 10 days. The patient states her initial symptoms began 2 weeks ago. She came in for back pain and was told she has 3 bulging discs as well as spinal stenosis. She was discharged home with pain medication. She then came back 3 days ago and was admitted. She notes that they wanted to get an MRI but she couldn't fit in the MRI machine. They also wanted to give her pain injections but were unable to secondary to her taking Xarelto. She left the hospital AMA because she wanted to be home for the 25 of October holiday. Patient states that she is not independently ambulatory and she has been using a walker to slowly get around recently. She is also unable to fully straighten her back. She also notes urinary incontinence for the past 2 weeks, typically while standing or walking. She had originally attributed this to a UTI she was diagnosed with last week but, she finished her antibiotics with symptoms persisting. The patient notes numbness and weakness in the LLE that does not feel like her typical neuropathy. She has also noticed slight constipation secondaryto her taking Kensal 5 mg every 6 hours. Patient denies any chest pain or SOB. No fever or chills. No lower extremity edema. No trauma. The patietn also notes that she lives with her daughter who is often away for work. There are no other complaints at this time. Patient presented here on 10/09/[address] lumbar spine showed L2-L3 disc bulging, facet arthropathy, epidural lipomatosis, mild central and lateral recess stenosis, L3-L4 disc bulging with small subarticular and formaminal protrusion with L3 root encroachment, L4-L5 disc bulging with moderate to marked facet arthropathy worse left with left lateral recess stenosis, nonobstructing right nephrolithiasis, and bilateral SI joint osteoarthritis. US vein duplex LLE showed no femoropopliteal venous thrombosis. Patient was discharged home with Kensal and Prednisone. Patient was admitted here from 10/22/2017 until 10/23/2017 for similar symptoms. She was discharged after 19 hours with Flexeril and Neurontin. Patient History Patient Active Problem List Diagnosis [...] use of insulin (CMS/HCC) ??? Constipation ??? Cancer of overlapping sites [...] fever. HENT: Negative for congestion, ear pain, rhinorrhea, sneezing and sore throat. Respiratory: Negative for cough, shortness of breath and wheezing. Cardiovascular: Negative for chest pain and palpitations. Gastrointestinal: Positive for constipation (secondary to Kensal use). Negative for abdominal pain, diarrhea, nausea and vomiting. Genitourinary: +urinary incontinence Musculoskeletal: Positive for back pain (severe; radiating into the LLE) and myalgias (LLE). Negative for arthralgias and neck pain. Skin: Negative for color change, pallor, rash and wound. Neurological: Positive for weakness (LLE) and numbness (LLE). Negative for dizziness, syncope, light-headedness and headaches. All other systems reviewed and are negative. Physical Exam ED Triage Vitals Temp Pulse Resp BP SpO2 10/25/17212310/25/17212310/25/17212310/25/17212310/25/172123 37 ??C (98.6 ??F) 100 18 134/68 96 % Temp src Heart Rate Source Patient Position BP Location FiO2 (%) 10/25/17212310/25/17214410/25/17214410/25/172214 -- Oral Monitor Lying Right arm Physical Exam Constitutional: She is oriented to person, place, and time. She appears well-developed. Patient is awake, alert, oriented and pleasant with an uncomfortable appearance. She exhibits severe morbid obesity and is laying in a left lateral recumbent position with her bilateral knees and hips flexed. She appears older than her stated age. HENT: Head: Normocephalic and atraumatic. Eyes: Conjunctivae [...] exhibits no distension. There is no tenderness. Patient exhibits severe morbid obesity. Abdomen is non-tender. Unable to appreciate any masses secondary to obesity. Musculoskeletal: She exhibits tenderness. She exhibits no edema or deformity. Back is tender to palpation at the lumbosacral region: the left lower lateral lumbar paravertebral musculature. Did not attempt to have the patient lay on her back secondary to her pain. Neurological: She is alert and oriented to person, place, and time. Patient has sensation present on the bilateral buttocks and perianal area. Sensation is intact along bilateral thighs, upper legs, lower legs, ankles, and feet, however, she reports that the LLE has somewhat decreased sensation. She is unable to tell positional sensation on the left and has significantly decreased positional sensation on the right. Strength is intact of the right lower foot and ankle on flexion and extension. Strength is somewhat decreased on the left. She reports this is unchanged for the past 2 weeks. Did not attempt a straight leg raise, however, the patient reports left sciatic pain increased secondary to lifting the left leg while at home. Skin: Skin is warm and dry. Capillary refill takes less than 2 seconds. No rash noted. No erythema.No pallor. Psychiatric: She has a normal mood and affect. Her behavior is normal. Nursing note and vitals reviewed. [facility] MDM Labs Reviewed POCT GLUCOSE DEVICE - Abnormal Result Value Glucose, POC, bld 315 (*) Narrative: No orders to display BP 121/85 (BP Location: Right arm, Patient Position: Lying) Comment: Simultaneous filing. User may not have seen previous data. Pulse 79 Comment: Simultaneous filing. User may not have seen previous data. Temp 36.8 ??C (98.3 ??F) (Oral) Resp 14 Ht 154.9 cm (5' 1 ) Wt 124.7 kg (275 lb) SpO2 98% Comment: Simultaneous filing. User may not have seen previous data. BMI 51.96 kg/m?? ED Course as of Oct 27 415 Time: 10/25 2225 Comment: Pre-hypertension/Hypertension: The patient has been informed that they may have pre-hypertension or Hypertension based on a blood pressure reading in the Emergency Department. I recommend that the patient call the primary care provider listed on their discharge instructions or a physician of their choice this week to arrange follow up for further evaluation of possible pre- hypertension or Hypertension. By: Paige Rush Time: 10/27 211 Comment: Discussed patient's case with Dr. Garza, [facility] hospitalist, who accepts the patient for admission. By: Paige Rush Sciatica of left side Spinal stenosis of lumbar region with neurogenic claudication Left leg weakness 11:20 PM: This note is prepared by Paige Rush, acting as a scribe for Ryan Costa Jr., MD. I electronically signed this note at 11:20 PM on 10/25/2017. I, Ryan Costa Jr., MD , have personally performed the services described in the documentation , reviewed the documentation, as recorded by the scribe in my presence, and it accurately and completely records my words and actions. Ryan Costa Jr., MD 10/26/17 0416 * Margaret Barcenas RN - 10/25/2017 9:25 PM CDT Lower and down her leg documented in this encounter Miscellaneous Notes * Plan of Care - Kirti Almendarez RN - 10/31/2017 2:33 PM CDT Goals: Clinical Goals for the Shift: safety, managing pain Summary: Pt received her spinal injection today and will be going home with a script for Kensal. Health Behavior: ??? Understanding of discharge needs will improve Adequate for Discharge Lack of Knowledge: ??? Ability to state ways to decrease the risk of falls will improve Adequate for Discharge Lack of Knowledge: ??? Ability to describe self-care measures that may prevent or decrease complications will improve Adequate for Discharge ??? Knowledge of disease or condition will improve Adequate for Discharge ??? Knowledge of the prescribed therapeutic regimen will improve Adequate for Discharge ??? Knowledge of prevention and discharge planning will improve Adequate for Discharge Lack of Knowledge: ??? Ability to develop a pain control plan will improve Adequate for Discharge ??? Ability to identify pain intensity on a pain scale and rate it consistently will improve Adequate for Discharge ??? Ability to notify healthcare provider of pain before it becomes unmanageable or unbearable willimprove Adequate for Discharge Medication: ??? Satisfaction with pain management regimen will improve Adequate for Discharge Nutritional: ??? Maintenance of adequate nutrition will improve Adequate for Discharge ??? Progress toward achieving an optimal weight will improve Adequate for Discharge Physical Regulation: ??? Complications related to the disease process, condition or treatment will be avoided or minimized Adequate for Discharge ??? Diagnostic test results will improve Adequate for Discharge Safety: ??? Will remain free from falls Adequate for Discharge ??? Will remain free from injury from falls Adequate for Discharge ??? Will remain free from falls and injury in home environment Adequate for Discharge Sensory: ??? Ability to identify factors that increase the pain will improve Adequate for Discharge ??? Pain level will decrease Adequate for Discharge Skin Integrity: ??? Risk for impaired skin integrity will decrease Adequate for Discharge * Plan of Care - Melani Hanks PTA - 10/31/2017 11:16 AM CDT Problem: PT Misc Goal: STG - Misc 1 Patient to perform bed mobility with log rolling indep Outcome: Progressing Goal: STG - Misc 2 Patient to perform functional transfers modified indep Outcome: Progressing Goal: STG - Misc 3 Patient to ambulate 150' with wheeled walker supervision assist Outcome: Progressing Goal: STG - Misc 4 Patient to perform HEP indep Outcome: Progressing * Plan of Care - Madison Riddle RN - 10/31/2017 5:11 AM CDT Goals: Clinical Goals for the Shift: Safety, pain management Summary: pt a&Ox4; C/O sciatica pain; BGL stable Health Behavior: ??? Understanding of discharge needs will improve Progressing Lack of Knowledge: ??? Ability to state ways to decrease the risk of falls will improve Progressing Lack of Knowledge: ??? Ability to describe self-care measures that may prevent or decrease complications will improve Progressing ??? Knowledge of disease or condition will improve Progressing ??? Knowledge of the prescribed therapeutic regimen will improve Progressing ??? Knowledge of prevention and discharge planning will improve Progressing Lack of Knowledge: ??? Ability to develop a pain control plan will improve Progressing ??? Ability to identify pain intensity on a pain scale and rate it consistently will improve Progressing ??? Ability to notify healthcare provider of pain before it becomes unmanageable or unbearable willimprove Progressing Medication: ??? Satisfaction with pain management regimen will improve Progressing Nutritional: ??? Maintenance of adequate nutrition will improve Progressing ??? Progress toward achieving an optimal weight will improve Progressing Physical Regulation: ??? Complications related to the disease process, condition or treatment will be avoided or minimized Progressing ??? Diagnostic test results will improve Progressing Safety: ??? Will remain free from falls Progressing ??? Will remain free from injury from falls Progressing ??? Will remain free from falls and injury in home environment Progressing Sensory: ??? Ability to identify factors that increase the pain will improve Progressing ??? Pain level will decrease Progressing Skin Integrity: ??? Risk for impaired skin integrity will decrease Progressing * Plan of Care - Eden Umaña PTA - 10/30/2017 3:47 PM CDT Problem: PT Misc Goal: STG - Misc 1 Patient to perform bed mobility with log rolling indep Outcome: Progressing Goal: STG - Misc 2 Patient to perform functional transfers modified indep Outcome: Progressing Goal: STG - Misc 3 Patient to ambulate 150' with wheeled walker supervision assist Outcome: Progressing Goal: STG - Misc 4 Patient to perform HEP indep Outcome: Progressing * Plan of Care - Eden Moss COTA - 10/30/2017 3:33 PM CDT Problem: OT Misc Goal: STG - Misc 3 Patient will complete bed/chair/toilet transfer mod I 1x Outcome: Progressing Pt completed ambulatory transfer from bed to toilet with supervision. Goal: STG - Misc 4 Patient will verbalize 2/3 energy conservation techniques for ADLs after review of information 1x Outcome: Completed Date Met: 10/30/17 Pt given handouts and reviewed energy conservation. Demonstrated good understanding of principles. Able to verbalize more than 2 techniques. * Plan of Care - Belle Jo - 10/30/2017 3:00 PM CDT Health Behavior: ??? Understanding of discharge needs will improve Progressing Lack of Knowledge: ??? Ability to state ways to decrease the risk of falls will improve Progressing Lack of Knowledge: ??? Ability to describe self-care measures that may prevent or decrease complications will improve Progressing ??? Knowledge of disease or condition will improve Progressing ??? Knowledge of the prescribed therapeutic regimen will improve Progressing ??? Knowledge of prevention and discharge planning will improve Progressing Lack of Knowledge: ??? Ability to develop a pain control plan will improve Progressing ??? Ability to identify pain intensity on a pain scale and rate it consistently will improve Progressing ??? Ability to notify healthcare provider of pain before it becomes unmanageable or unbearable willimprove Progressing Medication: ??? Satisfaction with pain management regimen will improve Progressing Nutritional: ??? Maintenance of adequate nutrition will improve Progressing ??? Progress toward achieving an optimal weight will improve Progressing Physical Regulation: ??? Complications related to the disease process, condition or treatment will be avoided or minimized Progressing ??? Diagnostic test results will improve Progressing Safety: ??? Will remain free from falls Progressing ??? Will remain free from injury from falls Progressing ??? Will remain free from falls and injury in home environment Progressing Sensory: ??? Ability to identify factors that increase the pain will improve Progressing ??? Pain level will decrease Progressing Skin Integrity: ??? Risk for impaired skin integrity will decrease Progressing Goals: Clinical Goals for the Shift: safety, comfort, pain management Summary: Continuing to monitor pain and comfort. Educated on blood glucose control and new medications. * Plan of Care - Klarissa Melchor RN - 10/30/2017 3:54 AM CDT Goals: Understanding of discharge needs will improve Progressing Knowledge of disease or condition will improve Progressing Ability to develop a pain control plan will improve Progressing Satisfaction with pain management regimen will improve Progressing Will remain free from falls Progressing Clinical Goals for the Shift: safety, comfort, pain management Summary: Patient complained of pain was given dilaudid, said that she would try K[place]al next time, blood sugars still fluctuating, now resting with no apparent distress. * Plan of Care - Jennifer Barroso RN - 10/29/2017 5:30 PM CDT Goals: Clinical Goals for the Shift: (comfort safety) Summary: Medicated for back pain today- hoping to get injection in her back tomorrow and then discharged. No distress at this time but states never completely gets relief from the back pain but is manageable with the pain med. * Medical Student - Bhaskar Benitez - 10/29/2017 11:56 AM CDT General Medicine History and Physical Patient: Karly Marques Date of Admission: 10/25/2017 Primary Care Physician: Justen Gale MD SUBJECTIVE: Patient is a 62 y.o. female with chief complaint of back pain with left sided sciatica. HPI: Patient with onset of lower back pain 3 weeks ago. The pain is bilateral and radiates down her leftleg.She first noticed the pain when she was woken up in the middle of the night due to the pain. Walking makes pain worse, while lying down helps although she has a hard time finding a comfortable position. Patient has been trying to lose weight but has hit a standstill recently. Past Medical History: Diagnosis Date ??? Adiposity [...] Medication Sig Dispense Refill Last Dose ??? rivaroxaban (XARELTO) 10 mg tablet Take 20 mg by mouth daily. 10/25/2017 ??? cyclobenzaprine (FLEXERIL) 5 mg tablet Take 1 tablet (5 mg total) by mouth 3 (three) times a day as needed for muscle spasms for up to 30 doses. 30 tablet 0 10/23/2017 ??? exemestane (AROMASIN) 25 mg tablet Take 25 mg by mouth daily. After a meal 10/25/2017 at Unknown time ??? HYDROcodone-acetaminophen (NORCO) 5-325 mg per tablet Take 1 tablet by mouth every 8 (eight) hours as needed for pain (1 tablet for mild to moderate pain or 2 tablets for severe pain). Do not exceed 8 tablets/day. (Patient taking differently: Take 1 tablet by mouth every 4 (four) hours as needed for pain (1 tablet for mild to moderate pain or 2 tablets for severe pain). Do not exceed 8 tablets/day. ) 25 tablet 0 ??? lisinopril (PRINIVIL,ZESTRIL) 20 mg tablet take 1 Tablet (20MG) by oral route every day (Patient taking differently: Take 20 mg by mouth daily. ) 0 10/25/2017 at Unknown time ??? oxybutynin (DITROPAN) 5 mg tablet take 1 tablet by oral route every day (Patient taking differently: Take 5 mg by mouth daily. ) 0 0 10/25/2017 at Unknown time ??? polyethylene glycol (MIRALAX) 17 gram/dose powder Mix 1 scoop (17 g) in 8 oz of water and drinkdaily. (Patient taking differently: daily as needed. Mix 1 scoop (17 g) in 8 oz of water and drink daily. ) 527 g 0 10/23/2017 ??? rOPINIRole (REQUIP) 5 mg tablet take 1 tablet (5MG) by oral route every day at bedtime (Patienttaking differently: Take 5 mg by mouth nightly. ) 0 10/25/2017 at Unknown time ??? sitaGLIPtin-metformin (JANUMET) 50-1,000 mg per tablet Take 1 tablet by mouth daily. 10/25/2017 at Unknown time Allergies Allergen Reactions ??? [...] Other Family history of restless leg syndrome; Prior to Admission medications Medication Sig Start Date End Date Taking? Authorizing Provider rivaroxaban (XARELTO) 10 mg tablet Take 20 mg by mouth daily. Yes Historical Provider, cyclobenzaprine (FLEXERIL) 5 mg tablet Take 1 tablet (5 mg total) by mouth 3 (three) times a day asneeded for muscle spasms for up to 30 doses. 10/23/17 Elo Aceves MD exemestane (AROMASIN) 25 mg tablet Take 25 mg by mouth daily. After a meal Historical Provider, HYDROcodone-acetaminophen (NORCO) 5-325 mg per tablet Take 1 tablet by mouth every 8 (eight) hours as needed for pain (1 tablet for mild to moderate pain or 2 tablets for severe pain). Do not exceed 8 tablets/day. Patient taking differently: Take 1 tablet by mouth every 4 (four) hours as needed for pain (1 tablet for mild to moderate pain or 2 tablets for severe pain). Do not exceed 8 tablets/day. 10/23/17 Elo Aceves MD lisinopril (PRINIVIL,ZESTRIL) 20 mg tablet take 1 Tablet (20MG) by oral route every day Patient taking differently: Take 20 mg by mouth daily. 05/11/12 Radha Leyva, oxybutynin (DITROPAN) 5 mg tablet take 1 tablet by oral route every day Patient taking differently: Take 5 mg by mouth daily. 12/12/13 Jcarlos Nails MD polyethylene glycol (MIRALAX) 17 gram/dose powder Mix 1 scoop (17 g) in 8 oz of water and drink daily. Patient taking differently: daily as needed. Mix 1 scoop (17 g) in 8 oz of water and drink daily. 08/15/17 Devonte Cruz MD rOPINIRole (REQUIP) 5 mg tablet take 1 tablet (5MG) by oral route every day at bedtime Patient taking differently: Take 5 mg by mouth nightly. 05/11/12 Radha Leyva DO sitaGLIPtin-metformin (JANUMET) 50-1,000 mg per tablet Take 1 tablet by mouth daily. Historical Provider, Review of Systems Review of Systems Constitutional: Negative. HENT: Negative. Eyes: Negative. Respiratory: Negative. Cardiovascular: Negative. Gastrointestinal: Negative. Endocrine: Negative. Genitourinary: Negative. Musculoskeletal: Positive for back pain. Skin: Negative. Allergic/Immunologic: Negative. Neurological: Negative. Hematological: Negative. Psychiatric/Behavioral: Negative. Breast: Negative. OBJECTIVE: Vitals: Arrival Vitals Temp 10/25/172123 37 ??C (98.6 ??F) Pulse 10/25/172123 100 Resp 10/25/172123 18 BP 10/25/172123 134/68 SpO2 10/25/172123 96 % Temp src 10/25/172123 Oral Heart Rate Source 10/25/172144 Monitor Patient Position 10/25/172144 Lying BP Location 10/25/17 2215 Right arm FiO2 (%) 10/26/17 0600 21 % Most Recent : Vitals: 10/28/17 0725 10/28/17 1455 10/28/17 2157 10/29/17 0710 BP: 124/72 133/77 91/58 111/70 BP Location: Right arm Right arm Right arm Right arm Patient Position: Sitting Sitting Lying Lying Pulse: 61 78 73 71 Resp: Temp: 36.6 ??C (97.8 ??F) 36.7 ??C (98 ??F) 36.7 ??C (98 ??F) 36.3 ??C (97.4 ??F) TempSrc: Oral Oral Oral Oral SpO2: 100% 97% 96% 99% Weight: Height: Physical exam: General Appearance: Alert, cooperative, no distress, appears stated age, well developed, well nourished Head: Normocephalic, without obvious abnormality, atraumatic Eyes: PERRL, conjunctiva/corneas clear, EOM's intact, fundi benign, both eyes, anicteric Ears: Normal TM's and external ear canals, both ears Nose: Nares normal, septum midline, mucosa normal, no drainage or sinus tenderness Throat: Lips, mucosa, and tongue normal; teeth and gums normal, mucous membranes moist Neck: Supple, symmetrical, trachea midline, no adenopathy; thyroid: No enlargement/tenderness/nodules; no carotid bruit or JVD Back: Symmetric, no curvature, ROM normal, no CVA tenderness Lungs: Clear to auscultation bilaterally, respirations unlabored Breast Exam: No tenderness, masses, or nipple abnormality Cardiovascular: Regular rate and rhythm, S1 and S2 normal, no murmur, rub or gallop, no edema, pulses 2+ and symmetric to all extremeties Abdomen: Soft, non-tender, bowel sounds active all four quadrants, no masses, no organomegaly, non-distended Genitalia: Normal female without lesion, discharge or tenderness Rectal: Normal tone, no masses or tenderness; guaiac negative stool Extremities: Extremities normal, atraumatic, no cyanosis or edema, no clubbing Skin: Skin color, texture, turgor normal, no rashes, lesions or bruising Lymph nodes: Cervical, supraclavicular, and axillary nodes normal Neurologic: Alert & oriented x 4, CNII-XII intact. Normal strength, sensation and reflexes throughout Psychosocial: Normal affect and mood Lab/Radiology/Diagnostic Review: Recent Results (from the past 24 hour(s)) POCT glucose Collection Time: 10/28/17 12:43 PM Result Value Ref Range Glucose, POC, bld 277 (H) 70 - 199 mg/dL POCT glucose Collection Time: 10/28/17 5:49 PM Result Value Ref Range Glucose, POC, bld 168 70 - 199 mg/dL POCT glucose Collection Time: 10/28/17 8:15 PM Result Value Ref Range Glucose, POC, bld 208 (H) 70 - 199 mg/dL POCT glucose Collection Time: 10/29/17 2:39 AM Result Value Ref Range Glucose, POC, bld 236 (H) 70 - 199 mg/dL POCT glucose Collection Time: 10/29/17 7:59 AM Result Value Ref Range Glucose, POC, bld 174 70 - 199 mg/dL Ct Lumbar Spine Wo Contrast Result Date: [...] Electronically signed by: Maria Elena Shin M.D. Mri Lumbar Spine Wo Contrast Result [...] extremity. Electronically signed by: Aguila Grijalva M.D. ASSESSMENT/PLAN: Principal Problem: Acute left-sided low back pain with left-sided sciatica Active Problems: LUL (obstructive sleep apnea) History of DVT (deep vein thrombosis) History of pulmonary embolism Cancer of overlapping sites of left female breast (CMS/HCC) Type 2 diabetes mellitus with neurologic complication, without long-term current use of insulin ([facility]) Radiculopathy, lumbosacral region Dysuria Full Code Estimated length of stay for this patient:2 Cosigned by Hipolito Phipps DO at 10/29/2017 7:17 PM CDT * Plan of Care - Lila Ramirez RN - 10/29/2017 4:10 AM CDT Goals: Clinical Goals for the Shift: pain control and blood glucose control Summary: Pain being controlled with current PRN pain meds after one time dose of breakthrough pain med. Pt blood sugars still running in the 200s. * Plan of Care - Lila Ramirez RN - 10/28/2017 3:34 AM CDT Goals: Clinical Goals for the Shift: pain control and control sugars Summary: Pt pain being controlled with use of PRN pain meds. Pt has rested comfortably in bed during this shift. Sugars have remained high but have decreased from sugars during previous shift. * Plan of Care - Gabriel Santo RN - 10/27/2017 11:55 AM CDT Health Behavior: ??? Understanding of discharge needs will improve Progressing Lack of Knowledge: ??? Ability to state ways to decrease the risk of falls will improve Progressing Lack of Knowledge: ??? Ability to describe self-care measures that may prevent or decrease complications will improve Progressing ??? Knowledge of disease or condition will improve Progressing ??? Knowledge of the prescribed therapeutic regimen will improve Progressing ??? Knowledge of prevention and discharge planning will improve Progressing Lack of Knowledge: ??? Ability to develop a pain control plan will improve Progressing ??? Ability to identify pain intensity on a pain scale and rate it consistently will improve Progressing ??? Ability to notify healthcare provider of pain before it becomes unmanageable or unbearable willimprove Progressing Medication: ??? Satisfaction with pain management regimen will improve Progressing Nutritional: ??? Maintenance of adequate nutrition will improve Progressing ??? Progress toward achieving an optimal weight will improve Progressing Physical Regulation: ??? Complications related to the disease process, condition or treatment will be avoided or minimized Progressing ??? Diagnostic test results will improve Progressing Safety: ??? Will remain free from falls Progressing ??? Will remain free from injury from falls Progressing ??? Will remain free from falls and injury in home environment Progressing Sensory: ??? Ability to identify factors that increase the pain will improve Progressing ??? Pain level will decrease Progressing Skin Integrity: ??? Risk for impaired skin integrity will decrease Progressing Goals: Clinical Goals for the Shift: control blood glucose, pain management Summary: Progressing * Plan of Care - Ragini Villaolbos RN - 10/27/2017 5:49 AM CDT Lack of Knowledge: ??? Ability to develop a pain control plan will improve Not Progressing ??? Ability to identify pain intensity on a pain scale and rate it consistently will improve Not Progressing ??? Ability to notify healthcare provider of pain before it becomes unmanageable or unbearable willimprove Not Progressing Medication: ??? Satisfaction with pain management regimen will improve Not Progressing Physical Regulation: ??? Diagnostic test results will improve Not Progressing Sensory: ??? Pain level will decrease Not Progressing Goals: Clinical Goals for the Shift: control blood glucose, pain management Summary: pt has been sleeping/resting most of the night; pt has had complaints through the night; which pt was given meds to help. Pt blood sugars have been high. Pt first bs of the night was 430; drgave pt 5units of lispro one time dose; around 0400 pts bs was 360. gave pt 3 units of lispro one time dose. Pts sugar are starting to come down. * Plan of Care - Ragini Villalobos RN - 10/26/2017 5:49 AM CDT Lack of Knowledge: ??? Ability to state ways to decrease the risk of falls will improve Not Progressing Lack of Knowledge: ??? Ability to describe self-care measures that may prevent or decrease complications will improve Not Progressing ??? Knowledge of disease or condition will improve Not Progressing ??? Knowledge of the prescribed therapeutic regimen will improve Not Progressing ??? Knowledge of prevention and discharge planning will improve Not Progressing Lack of Knowledge: ??? Ability to develop a pain control plan will improve Not Progressing ??? Ability to identify pain intensity on a pain scale and rate it consistently will improve Not Progressing ??? Ability to notify healthcare provider of pain before it becomes unmanageable or unbearable willimprove Not Progressing Medication: ??? Satisfaction with pain management regimen will improve Not Progressing Nutritional: ??? Maintenance of adequate nutrition will improve Not Progressing ??? Progress toward achieving an optimal weight will improve Not Progressing Physical Regulation: ??? Complications related to the disease process, condition or treatment will be avoided or minimized Not Progressing ??? Diagnostic test results will improve Not Progressing Safety: ??? Will remain free from falls Not Progressing ??? Will remain free from injury from falls Not Progressing ??? Will remain free from falls and injury in home environment Not Progressing Sensory: ??? Ability to identify factors that increase the pain will improve Not Progressing ??? Pain level will decrease Not Progressing Skin Integrity: ??? Risk for impaired skin integrity will decrease Not Progressing Goals: Summary: pt just arrived to the floor; pts blood sugar was high. Dr was notified insulin was given to pt. Pts blood sugar was high in ed and I asked ed if anything was given to treat and they said nothat its already 0300 am; so pts sugar continued to rise and which is why it was so high. Pt has had complaints of pain. documented in this encounter Plan of Treatment Not on file documented as of this encounter Procedures Procedure Name Priority Date/Time Associated Diagnosis Comments POCT GLUCOSE DEVICE Routine 10/31/2017 2 :08 PM CDT XR SPINE LUMBAR 2 OR 3 VIEWS IP Routine 10/31/2017 12:51 PM CDT INJECTION - EPIDURAL STEROID - LUMBAR 10/31/2017 12:28 PM CDT lesi POCT GLUCOSE DEVICE Routine 10/31/2017 7 :38 AM CDT POCT GLUCOSE DEVICE Routine 10/31/2017 2 :57 AM CDT POCT GLUCOSE DEVICE Routine 10/30/2017 8 :38 PM CDT POCT GLUCOSE DEVICE Routine 10/30/2017 5 :50 PM CDT POCT GLUCOSE DEVICE Routine 10/30/2017 1 2:44 PM CDT POCT GLUCOSE DEVICE Routine 10/30/2017 7 :37 AM CDT POCT GLUCOSE DEVICE Routine 10/30/2017 3 :06 AM CDT POCT GLUCOSE DEVICE Routine 10/29/2017 8 :46 PM CDT POCT GLUCOSE DEVICE Routine 10/29/2017 5 :53 PM CDT POCT GLUCOSE DEVICE Routine 10/29/2017 1 2:56 PM CDT POCT GLUCOSE DEVICE Routine 10/29/2017 7 :59 AM CDT POCT GLUCOSE DEVICE Routine 10/29/2017 2 :39 AM CDT POCT GLUCOSE DEVICE Routine 10/28/2017 8 :15 PM CDT POCT GLUCOSE DEVICE Routine 10/28/2017 5 :49 PM CDT POCT GLUCOSE DEVICE Routine 10/28/2017 1 2:43 PM CDT URINALYSIS AND REFLEX TO MICROSCOPIC AND CULTURE Routine 10/28/2017 8:18 AM CDT URINALYSIS, MICROSCOPIC ONLY Routine 10/28/2017 8:18 AM CDT POCT GLUCOSE DEVICE Routine 10/28/2017 7 :46 AM CDT POCT GLUCOSE DEVICE Routine 10/28/2017 3 :27 AM CDT POCT GLUCOSE DEVICE Routine 10/27/2017 8 :18 PM CDT POCT GLUCOSE DEVICE Routine 10/27/2017 5 :30 PM CDT POCT GLUCOSE DEVICE Routine 10/27/2017 1 :08 PM CDT MRI LUMBAR SPINE WO CONTRAST IP Routine 10/27/2017 11:47 AM CDT POCT GLUCOSE DEVICE Routine 10/27/2017 7 :49 AM CDT EGFR Routine 10/27/2017 6:29 AM CDT DIFFERENTIAL AUTO Routine 10/27/2017 6:2 9 AM CDT CBC WITH AUTO DIFFERENTIAL Routine 10/27/2017 6:29 AM CDT MAGNESIUM Routine 10/27/2017 6:29 AM CDT HEMOGLOBIN A1C Routine 10/27/2017 6:29 AM CDT BASIC METABOLIC PANEL Routine 10/27/2017 6:29 AM CDT POCT GLUCOSE DEVICE Routine 10/27/2017 4 :41 AM CDT POCT GLUCOSE DEVICE Routine 10/26/2017 9 :09 PM CDT POCT GLUCOSE DEVICE Routine 10/26/2017 9 :05 PM CDT POCT GLUCOSE DEVICE Routine 10/26/2017 5 :48 PM CDT POCT GLUCOSE DEVICE Routine 10/26/2017 1 2:16 PM CDT POCT GLUCOSE DEVICE Routine 10/26/2017 8 :06 AM CDT EGFR Routine 10/26/2017 7:38 AM CDT DIFFERENTIAL AUTO Routine 10/26/2017 7:3 8 AM CDT CBC WITH AUTO DIFFERENTIAL Routine 10/26/2017 7:38 AM CDT APTT Routine 10/26/2017 7:38 AM CDT PROTIME-INR Routine 10/26/2017 7:38 AM CDT MAGNESIUM Routine 10/26/2017 7:38 AM CDT BASIC METABOLIC PANEL Routine 10/26/2017 7:38 AM CDT POCT GLUCOSE DEVICE Routine 10/26/2017 4 :57 AM CDT POCT GLUCOSE DEVICE Routine 10/26/2017 2 :09 AM CDT documented in this encounter Results * POCT glucose (10/31/2017 2:08 PM CDT) [facility] Signature Glucose, POC 151 70 - 199 mg/dL [facility] Blood specimen (specimen) 10/31/2017 2:08 PM CDT 10/31/2017 2:08 PM CDT Narrative [facility] - 10/31/2017 2:19 PM CDT us Elo Aceves MD LAB POCT ORDERABLES - DEVICE Final Result [facility] [id number] Department [place] [address] * XR Spine Lumbar 2 or 3 Views (10/31/2017 12:51 PM CDT) Narrative RAD_PACS_ - 10/31/2017 12:51 PM CDT The images from this study are not interpreted by Radiology. ??Please refer to the physician's procedure / OR operative note. John Paul Moyer MD IMG XR PROCEDURES Fin al Result Performing Organization Address [facility] de Phone Number RAD_[email or web address] * POCT glucose (10/31/2017 7:38 AM CDT) Glucose, POC 176 70 - 199 mg/dL [facility] Blood specimen (specimen) 10/31/2017 7:38 AM CDT 10/31/2017 7:38 AM CDT Narrative [facility] - 10/31/2017 7:40 AM CDT Eol Aceves MD LAB POCT ORDERABLES - DEVICE Final Result Performing Organization Address [facility] de Phone Number [facility] [id number] [place] [address] * POCT glucose (10/31/2017 2:57 AM CDT) Glucose, POC 194 70 - 199 mg/dL [facility] Blood specimen (specimen) 10/31/2017 2:57 AM CDT 10/31/2017 2:57 AM CDT Narrative [facility] - 10/31/2017 2:58 AM CDT Elo Aceves MD LAB POCT ORDERABLES - DEVICE Final Result Performing Organization Address [facility] de Phone Number [facility] [id number] Department [place] [address] * (ABNORMAL) POCT glucose (10/30/2017 8:38 PM CDT) Glucose, POC 201(H) 70 - 199 mg/dL [facility] Blood specimen (specimen) 10/30/2017 8:38 PM CDT 10/30/2017 8:38 PM CDT Narrative [facility] - 10/30/2017 8:40 PM CDT Elo Aceves MD LAB POCT ORDERABLES - DEVICE Final Result Performing Organization Address [facility] Co de Phone Number [facility] [id number] [facility] [place] [address] * POCT glucose (10/30/2017 5:50 PM CDT) Glucose, POC 164 70 - 199 mg/dL [facility] Blood specimen (specimen) 10/30/2017 5:50 PM CDT 10/30/2017 5:50 PM CDT Narrative [facility] - 10/30/2017 5:51 PM CDT Elo Aceves MD LAB POCT ORDERABLES - DEVICE Final Result Performing Organization Address [facility] Co de Phone Number [facility] [id number] [address] [facility] [place] [address] * POCT glucose (10/30/2017 12:44 PM CDT) Glucose, POC 165 70 - 199 mg/dL [facility] Blood specimen (specimen) 10/30/2017 12:44 PM CDT 10/30/2017 12:44 PM CDT Narrative [facility] - 10/30/2017 12:45 PM CDT Elo Aceves MD LAB POCT ORDERABLES - DEVICE Final Result Performing Organization Address [facility] Co de Phone Number [facility] [phone] [address] [facility] [place] [address] * POCT glucose (10/30/2017 7:37 AM CDT) Glucose, POC 178 70 - 199 mg/dL [facility] Blood specimen (specimen) 10/30/2017 7:37 AM CDT 10/30/2017 7:37 AM CDT Narrative [facility] - 10/30/2017 7:38 AM CDT Hipolito Torres [facility] POCT ORDERABLES - DEVICE Final Result Performing Organization Address [facility] de Phone Number MARY JANE ARNOLD [address] [place] [address] * POCT glucose (10/30/2017 3:06 AM CDT) Glucose, POC 198 70 - 199 mg/dL [facility] Blood specimen (specimen) 10/30/2017 3:06 AM CDT 10/30/2017 3:06 AM CDT Johnathan YANCEYPUJA - 10/30/2017 3:16 AM CDT Hipolito Phipps [facility] POCT ORDERABLES - DEVICE Final Result Performing Organization Address [facility] de Phone Number MARY JANE ARNOLD [address] [place] [address] * (ABNORMAL) POCT glucose (10/29/2017 8:46 PM CDT) Glucose, POC 238(H) 70 - 199 mg/dL [facility] Blood specimen (specimen) 10/29/2017 8:46 PM CDT 10/29/2017 8:46 PM CDT Johnathan YANCEYPUJA - 10/29/2017 8:56 PM CDT [facility] POCT ORDERABLES - DEVICE Final Result Performing Organization Address [facility] de Phone Number MARY JANE ARNOLD [address] [place] [address] * POCT glucose (10/29/2017 5:53 PM CDT) Glucose, POC 149 70 - 199 mg/dL [facility] Blood specimen (specimen) 10/29/2017 5:53 PM CDT 10/29/2017 5:53 PM CDT Narrative MARY JANE ARNOLD - 10/29/2017 5:54 PM CDT Hipolito Torres Moise [facility] POCT ORDERABLES - DEVICE Final Result Performing Organization Address [facility] Co de Phone Number MARY JANE ARNOLD [address] [facility] [place] [address] * (ABNORMAL) POCT glucose (10/29/2017 12:56 PM CDT) Glucose, POC 201(H) 70 - 199 mg/dL [facility] Blood specimen (specimen) 10/29/2017 12:56 PM CDT 10/29/2017 12:56 PM CDT Narrative MARY JANE - 10/29/2017 12:58 PM CDT Hipolito Brian Mo[facility] POCT ORDERABLES - DEVICE Final Result Performing Organization Address [facility] de Phone Number MARY JANE ARNOLD [address] [facility] [place] [address] * POCT glucose (10/29/2017 7:59 AM CDT) Glucose, POC 174 70 - 199 mg/dL [facility] Blood specimen (specimen) 10/29/2017 7:59 AM CDT 10/29/2017 7:59 AM CDT Narrative MARY JANE - 10/29/2017 8:15 AM CDT Hipolito Brian Moise [facility] POCT ORDERABLES - DEVICE Final Result Performing Organization Address [facility] Co de Phone Number MARY JANE ARNOLD [address] [place] [address] * (ABNORMAL) POCT glucose (10/29/2017 2:39 AM CDT) Glucose, POC 236(H) 70 - 199 mg/dL [facility] Blood specimen (specimen) 10/29/2017 2:39 AM CDT 10/29/2017 2:39 AM CDT [facility] 10/[facility]/2017 2:41 AM CDT Elo Aceves MD LAB POCT ORDERABLES - DEVICE Final Result Performing Organization Address [facility] Co de Phone Number MARY JANE ARNOLD [address] [facility] [place] [address] * (ABNORMAL) POCT glucose (10/28/2017 8:15 PM CDT) Glucose, POC 208(H) 70 - 199 mg/dL [facility] Blood specimen (specimen) 10/28/2017 8:15 PM CDT 10/28/2017 8:15 PM CDT Narrative [facility] - 10/28/2017 8:18 PM CDT Elo Aceves MD LAB POCT ORDERABLES - DEVICE Final Result Performing Organization Address [facility] Co de Phone Number MARY JANE [address] [place] [address] * POCT glucose (10/28/2017 5:49 PM CDT) Glucose, POC 168 70 - 199 mg/dL [facility] Blood specimen (specimen) 10/28/2017 5:49 PM CDT 10/28/2017 5:49 PM CDT [facility]ative [facility] 10/28/2017 5:51 PM CDT Elo Aceves MD LAB POCT ORDERABLES - DEVICE Final Result Performing Organization Address [facility] Co de Phone Number MARY JANE [address] [facility] [place] [address] * (ABNORMAL) POCT glucose (10/28/2017 12:43 PM CDT) Glucose, POC 277(H) 70 - 199 mg/dL [facility] Blood specimen (specimen) 10/28/2017 12:43 PM CDT 10/28/2017 12:43 PM CDT Narrative [facility] - 10/28/2017 12:44 PM CDT Elo Aceves MD LAB POCT ORDERABLES - DEVICE Final Result Performing Organization Address [facility] de Phone Number MARY JANE [phone] [place] [address] * (ABNORMAL) Urinalysis, microscopic only (10/28/2017 8:18 AM CDT) WBC, ur 0-5 0 - 5 /HPF [facility] RBC, ur 0-5 0 - 5 /HPF [facility] Epithelial cells, squamous, ur 1-5 0 - 5 /HPF [facility] Mucous, ur Present(A) [facility] Hyaline casts, ur 1-5 0 - 10 /LPF [facility] Urine, clean voided 10/28/2017 8:18 AM CDT 10/28/2017 8:28 AM CDT Narrative MARY JANE CH - 10/28/2017 8:33 AM CDT us Remi Garza MD LAB URINE ORDERABLES F inal Result Performing Organization Address [facility] de Phone Number MARY JANE [phone] [facility] [place] [address] * (ABNORMAL) Urinalysis reflex to microscopic and culture Urine, clean voided (10/28/2017 8:18 AM CDT) Color, ur Yellow Yellow [facility] [...] ur Negative Negative [facility] Leukocyte esterase, ur Negative Negative [facility] Urine, clean voided 10/28/2017 8:18 AM CDT 10/28/2017 8:28 AM CDT Narrative [facility] - 10/28/2017 8:32 AM CDT ?? Urine pH is affected by diet, medications, systemic acid-base disturbances, and renal tubular function. ??pH may affect urinary stone formation. ??For example, urine pH below 6.0 may help reduce the tendency for calcium phosphate stones and pH greater than 6.0 may reduce the tendency for uric acid stone formation. Source: [facility] [employer]. Last revised 05-04-2017 us Remi Garza MD LAB MICROBIOLOGY - GEN ERAL ORDERABLES Final Result Performing Organization Address [facility] Co de Phone Number MARY JANE [address] [employer] [place] [address] * POCT glucose (10/28/2017 7:46 AM CDT) Glucose, POC 155 70 - 199 mg/dL [facility] Blood specimen (specimen) 10/28/2017 7:46 AM CDT 10/28/2017 7:46 AM CDT Narrative [facility] - 10/28/2017 7:55 AM CDT Elo Aceves MD LAB POCT ORDERABLES - DEVICE Final Result Performing Organization Address [facility]ZIP Co de Phone Number MARY JANE ARNOLD [address] [employer] [place] [address] * (ABNORMAL) POCT glucose (10/28/2017 3:27 AM CDT) Glucose, POC 205(H) 70 - 199 mg/dL [facility] Blood specimen (specimen) 10/28/2017 3:27 AM CDT 10/28/2017 3:27 AM CDT Narrative MARY JANE - 10/28/2017 3:29 AM CDT Elo Aceves MD LAB POCT ORDERABLES - DEVICE Final Result Performing Organization Address [facility] Co de Phone Number MARY JANE ARNOLD [address] [facility] [place] [address] * (ABNORMAL) POCT glucose (10/27/2017 8:18 PM CDT) Glucose, POC 297(H) 70 - 199 mg/dL [facility] Blood specimen (specimen) 10/27/2017 8:18 PM CDT 10/27/2017 8:18 PM CDT Johnathan MARY JANE - 10/27/2017 8:20 PM CDT Elo Aceves MD LAB POCT ORDERABLES - DEVICE Final Result Performing Organization Address [facility] Co de Phone Number MARY JANE ARNOLD [address] [facility] [place] [address] * (ABNORMAL) POCT glucose (10/27/2017 5:30 PM CDT) Glucose, POC 245(H) 70 - 199 mg/dL [facility] Blood specimen (specimen) 10/27/2017 5:30 PM CDT 10/27/2017 5:30 PM CDT Johnathan [facility] - 10/27/2017 5:35 PM CDT Elo Aceves MD LAB POCT ORDERABLES - DEVICE Final Result Performing Organization Address [facility] Co de Phone Number MARY JANE ARNOLD [address] [place] [address] * POCT glucose (10/27/2017 1:08 PM CDT) Glucose, POC 190 70 - 199 mg/dL [facility] Blood specimen (specimen) 10/27/2017 1:08 PM CDT 10/27/2017 1:08 PM CDT Narrative MARY JANE ARNOLD - 10/28/2017 3:46 AM CDT Elo Aceves MD LAB POCT ORDERABLES - DEVICE Final Result MARY JANE ARNOLD [address] Department [place] [address] * MRI Lumbar Spine WO Contrast (10/27/2017 11:47 AM CDT) Anatomical Region Laterality Modality Spine N/A Magnetic Resonan ce 10/27/2017 2:55 PM CDT Impressions 10/27/2017 4:35 PM CDT Mild to moderate degenerative changes as described above, without at most mild left neuroforaminal narrowing at L4-L5 Electronically signed by: Melvin Knight M.D. Narrative 10/27/2017 4:35 PM CDT EXAMINATION: Magnetic resonance imaging (MRI) of the lumber spine without ??contrast. HISTORY: Low back pain. TECHNIQUE: Multiplanar multi-weighted MRI of the lumbar spine was performed without ??intravenous contrast using the standard lumbar spine protocol. COMPARISON: None available. FINDINGS: Transitional vertebral anatomy with sacralization of L5 with a rudimentary L5-S1 disc. Alignment of the lumbar spine is normal. There is disc bulging and desiccation of L1-L2 through L4-L5. ??There are scattered hemangiomata in the lower thoracic spine and sacrum. Conus terminates at T12-L1. ??Signal within the visualized lower cord is normal. ??There is mild edema in lumbar subcutaneous tissues. L1-L2: Minimal bulge. There is mild facet arthropathy. There is no neuroforaminal stenosis. There is no spinal canal stenosis. L2-L3: ??Leftward disc bulge. There is mild facet arthropathy. There is no neuroforaminal stenosis. There is no spinal canal stenosis L3-L4: ??Right eccentric disc bulge. There is mild facet arthropathy. There is mild right neuroforaminal stenosis. There is no spinal canal stenosis L4-L5: ??Mild bulge. There is moderate left greater than right facet arthropathy. There is mild left neuroforaminal stenosis. There is no spinal canal stenosis L5-S1: Not included on the axial series. ??Sacralized L5 with a rudimentary disc. ??No gross canal narrowing at this level. Procedure Note Melvin Knight MD - 10/27/2017 EXAMINATION: Magnetic resonance imaging (MRI) of the [...] bulging and desiccation of L1-L2 through L4-L5. There are scattered hemangiomata in the lower thoracic spine [...] No gross canal narrowing at this level. IMPRESSION: Mild to moderate degenerative changes as described above, without at most mild left neuroforaminal narrowing at L4-L5 Electronically signed by: Melvin Knight M.D. Elo Aceves MD IM MRI PROCEDURES Final Result * (ABNORMAL) POCT glucose (10/27/2017 7:49 AM CDT) Glucose, POC 317(H) 70 - 199 mg/dL [facility] Blood specimen (specimen) 10/27/2017 7:49 AM CDT 10/27/2017 7:49 AM CDT Narrative MARY JANE - 10/27/2017 8:24 AM CDT Elo Aceves MD LAB POCT ORDERABLES - DEVICE Final Result Performing Organization Address [facility] de Phone Number [facility] [phone] [place] [address] * (ABNORMAL) Hemoglobin A1c (10/27/2017 6:29 AM CDT) Hgb A1C 9.2(H) 4.0 - 6.0 % MARY JANE Comment: Interpretive Data Hemoglobin A1c ADA Interpretive Guidelines ??<7% ?? Glycemia controlled ??>8% ?? Hyperglycemia, additional action recommended Lizandro Immunochemical Method Current interpretive data was last revised on 2015 Testing performed by: [facility] [place] [address] Estimated Average Glucose 217 mg/dL MARY JANE Comment:Testing performed by : [facility] [place] [address] Blood specimen (specimen) 10/27/2017 6:29 AM CDT 10/28/2017 10:34 AM CDT Narrative MARY JANE - 10/28/2017 11:43 AM CDT Please add to labs done today Elo Aceves MD LAB BLOOD ORDERABLE S Final Result Performing Organization Address [facility] de Phone Number [facility] [address] [facility][1] [place] [address] * eGFR (10/27/2017 6:29 AM CDT) eGFR 77 mL/min/1.7 3 m2 MARY JANE Comment: Interpretive Data Reference Interval Normal ?>/= 90 mL/min/1.73m2 Mildly decreased* ? 60 - 89 mL/min/1.73m2 Mildly to moderately decreased ?45 - 59 mL/min/1.73m2 Moderately to severely decreased ??30 - 44 mL/min/1.73m2 Severely decreased ?15 - 29 mL/min/1.73m2 Kidney Failure ?< 15 ??mL/min/1.73m2 *Relative to young adult level If -Citizen [place] multiply value by 1.16. Estimated glomerular filtration [...] was last reviewed 2015. Blood specimen (specimen) 10/27/2017 6:29 AM CDT 10/27/2017 6:46 AM CDT Narrative MARY JANE - 10/27/2017 7:07 AM CDT us Remi Garza MD LAB BLOOD ORDERABLES F inal Result MARY JANE [address] Department [place] [address] * (ABNORMAL) Differential, auto (10/27/2017 6:29 AM CDT) Neutrophil abs 6.2 1.7 - 6.5 K/cumm [facility] Imm gran abs 0.0 0.0 - 0.1 K/cumm [facility] Lymphocyte abs 3.1 0.8 - 3.3 K/cumm [facility] Monocyte abs 0.9(H) 0.2 - 0.8 K/cumm [facility] Eosinophil abs 0.1 0.0 - 0.5 K/cumm [facility] Basophil abs 0.0 0.0 - 0.1 K/cumm [facility] Neutrophil pct 60.0 % [facility] Comment: Interpretive Data Percent cell count reference ranges are not reported, since discordance with absolute values may lead to misinterpretation of CBC data. Current Interpretive Data was last revised on 2017. Imm gran pct 0.4 % [facility] Comment: Interpretive Data Percent cell count reference ranges are not reported, since discordance with absolute values may lead to misinterpretation of CBC data. Current Interpretive Data was last revised on 2017. Lymphocyte pct 29.5 % [facility] Comment: Interpretive Data Percent cell count reference ranges are not reported, since discordance with absolute values may lead to misinterpretation of CBC data. Current Interpretive Data was last revised on 2017. Monocyte pct 8.7 % [facility] Comment: Interpretive Data Percent cell count reference ranges are not reported, since discordance with absolute values may lead to misinterpretation of CBC data. Current Interpretive Data was last revised on 2017. Eosinophil pct 1.0 % [facility] Comment: Interpretive Data Percent cell count reference ranges are not reported, since discordance with absolute values may lead to misinterpretation of CBC data. Current Interpretive Data was last revised on 2017. Basophil pct 0.4 % [facility] Comment: Interpretive Data Percent cell count reference ranges are not reported, since discordance with absolute values may lead to misinterpretation of CBC data. Current Interpretive Data was last revised on 2017. Blood specimen (specimen) 10/27/2017 6:29 AM CDT 10/27/2017 6:46 AM CDT Narrative [facility] - 10/27/2017 6:49 AM CDT us Remi Garza MD LAB BLOOD ORDERABLES F inal Result MARY JANE [address] Department [place] [address] * (ABNORMAL) Magnesium (10/27/2017 6:29 AM CDT) Magnesium 1.7(L) 1.8 - 2.6 mg/dL [facility] Blood specimen (specimen) 10/27/2017 6:29 AM CDT 10/27/2017 6:46 AM CDT Narrative [facility] - 10/27/2017 7:07 AM CDT Remi Garza MD LAB BLOOD ORDERABLES F inal Result Performing Organization Address [facility] Co pr Phone Number [facility] [address] Department [place] [address] * (ABNORMAL) Basic metabolic panel (10/27/2017 6:29 AM CDT) Sodium 133(L) 135 - 145 mmol/L [facility] Potassium, pl 4.3 3.5 - 5.1 mmol/L [facility] Chloride 101 100 - 114 mmol/L [facility] CO2 27 22 - 32 mmol/L [facility] Anion gap 9 8 - 16 mmol/L [facility] BUN 20 8 - 24 mg/dL [facility] Creatinine 0.82 0.60 - 1.30 mg/dL [facility] Glucose 349(H) 70 - 199 mg/dL [facility] Comment: Interpretive Data Fasting [...] 2017. Calcium 9.0 8.4 - 10.5 mg/dL [facility] Blood specimen (specimen) 10/27/2017 6:29 AM CDT 10/27/2017 6:46 AM CDT Narrative [facility] - 10/27/2017 7:07 AM CDT Remi Garza MD LAB BLOOD ORDERABLES F inal Result MARY JANE ARNOLD [address] Department [place] [address] * (ABNORMAL) CBC with auto differential (10/27/2017 6:29 AM CDT) WBC 10.4(H) 3.8 - 9.9 K/cumm [facility] RBC 3.87(L) 3.90 - 5.20 M/cumm [facility] Hgb 10.5(L) 11.9 - 15.5 g/dL [facility] Hct 34.8(L) 35.6 - 45.5 % [facility] MCV 89.9 81.3 - 96.4 fL [facility] MCH 27.1 27.1 - 33.3 pg [facility] MCHC 30.2(L) 32.3 - 35.7 g/dL [facility] RDW CV 14.9 11.1 - 14.9 % [facility] RDW SD 49.5(H) 35.7 - 48.1 fL [facility] Plt 274 150 - 400 K/cumm [facility] MPV 10.2 9.1 - 12.3 fL [facility] NRBC abs 0.00 0.00 - 0.01 K/cumm [facility] Blood specimen (specimen) 10/27/2017 6:29 AM CDT 10/27/2017 6:46 AM CDT Narrative [facility] - 10/27/2017 6:49 AM CDT Remi Garza MD LAB BLOOD ORDERABLES F inal Result MARY JANE ARNOLD [address] Department [place] [address] * (ABNORMAL) POCT glucose (10/27/2017 4:41 AM CDT) Pathologist [facility] Glucose, POC 360(H) 70 - 199 mg/dL [facility] Blood specimen (specimen) 10/27/2017 4:41 AM CDT 10/27/2017 4:41 AM CDT Narrative [facility] - 10/27/2017 4:42 AM CDT Elo Aceves MD LAB POCT ORDERABLES - DEVICE Final Result Performing Organization Address [facility] Co de Phone Number MARY JANE ARNOLD [address] [address] [facility] [facility] [place] [address] * (ABNORMAL) POCT glucose (10/26/2017 9:09 PM CDT) Glucose, POC 408(H) 70 - 199 mg/dL [facility] Blood specimen (specimen) 10/26/2017 9:09 PM CDT 10/26/2017 9:09 PM CDT Johnathan [facility] - 10/26/2017 9:10 PM CDT Elo Aceves MD LAB POCT ORDERABLES - DEVICE Final Result Performing Organization Address [facility] de Phone Number MARY JANE ARNOLD [address] [address] [facility] [facility] [place] [address] * (ABNORMAL) POCT glucose (10/26/2017 9:05 PM CDT) Glucose, POC 420(H) 70 - 199 mg/dL [facility] Blood specimen (specimen) 10/26/2017 9:05 PM CDT 10/26/2017 9:05 PM CDT Johnathan [facility] - 10/26/2017 9:06 PM CDT Elo Aceves MD LAB POCT ORDERABLES - DEVICE Final Result Performing Organization Address [facility] Co de Phone Number MARY JANE ARNOLD [address] [place] [address] * (ABNORMAL) POCT glucose (10/26/2017 5:48 PM CDT) Glucose, POC 318(H) 70 - 199 mg/dL [facility] Blood specimen (specimen) 10/26/2017 5:48 PM CDT 10/26/2017 5:48 PM CDT Narrative MARY JANE - 10/26/2017 5:52 PM CDT Elo Aceves MD LAB POCT ORDERABLES - DEVICE Final Result Performing Organization Address [facility]ZIP Co de Phone Number MARY JANE ARNOLD [address] [address] [facility] [facility] [place] [address] * (ABNORMAL) POCT glucose (10/26/2017 12:16 PM CDT) Glucose, POC 357(H) 70 - 199 mg/dL MARY JANE Blood specimen (specimen) 10/26/2017 12:16 PM CDT 10/26/2017 12:16 PM CDT Narrative MARY JANE - 10/26/2017 12:22 PM CDT Elo Aceves MD LAB POCT ORDERABLES - DEVICE Final Result Performing Organization Address [facility] Co de Phone Number BCPUJA ARNOLD [address] [address] [facility] [facility] [place] [address] * (ABNORMAL) POCT glucose (10/26/2017 8:06 AM CDT) Glucose, POC 380(H) 70 - 199 mg/dL MARY JANE Blood specimen (specimen) 10/26/2017 8:06 AM CDT 10/26/2017 8:06 AM CDT Narrative MARY JANE - 10/26/2017 8:09 AM CDT Elo Aceves MD LAB POCT ORDERABLES - DEVICE Final Result Performing Organization Address [facility]/ZIP Co de Phone Number MARY JANE ARNOLD [address] [address] [facility] [facility] [place] [address] * eGFR (10/26/2017 7:38 AM CDT) eGFR 78 mL/min/1.7 3 m2 MARY JANE Comment: Interpretive Data Reference Interval Normal ?>/= 90 mL/min/1.73m2 Mildly decreased* ? 60 - 89 mL/min/1.73m2 Mildly to moderately decreased ?45 - 59 mL/min/1.73m2 Moderately to severely decreased ??30 - 44 mL/min/1.73m2 Severely decreased ?15 - 29 mL/min/1.73m2 Kidney Failure ?< 15 ??mL/min/1.73m2 *Relative to young adult level If -Citizen [place] multiply value by 1.16. Estimated glomerular filtration [...] was last reviewed 2015. Blood specimen (specimen) 10/26/2017 7:38 AM CDT 10/26/2017 7:56 AM CDT Narrative MARY JANE - 10/26/2017 8:15 AM CDT us Remi Garza MD LAB BLOOD ORDERABLES F inal Result [facility] [address] Department [place] [address] * (ABNORMAL) Differential, auto (10/26/2017 7:38 AM CDT) Pathologist [facility] Neutrophil abs 6.5 1.7 - 6.5 K/cumm [facility] Imm gran abs 0.0 0.0 - 0.1 K/cumm [facility] Lymphocyte abs 1.1 0.8 - 3.3 K/cumm [facility] Monocyte abs 0.0(L) 0.2 - 0.8 K/cumm [facility] Eosinophil abs 0.0 0.0 - 0.5 K/cumm [facility] Basophil abs 0.0 0.0 - 0.1 K/cumm [facility] Neutrophil pct 83.9 % [facility] Comment: Interpretive Data Percent cell count reference ranges are not reported, since discordance with absolute values may lead to misinterpretation of CBC data. Current Interpretive Data was last revised on 2017. Imm gran pct 0.6 % [facility] Comment: Interpretive Data Percent cell count reference ranges are not reported, since discordance with absolute values may lead to misinterpretation of CBC data. Current Interpretive Data was last revised on 2017. Lymphocyte pct 14.5 % [facility] Comment: Interpretive Data Percent cell count reference ranges are not reported, since discordance with absolute values may lead to misinterpretation of CBC data. Current Interpretive Data was last revised on 2017. Monocyte pct 0.6 % [facility] Comment: Interpretive Data Percent cell count reference ranges are not reported, since discordance with absolute values may lead to misinterpretation of CBC data. Current Interpretive Data was last revised on 2017. Eosinophil pct 0.1 % [facility] Comment: Interpretive Data Percent cell count reference ranges are not reported, since discordance with absolute values may lead to misinterpretation of CBC data. Current Interpretive Data was last revised on 2017. Basophil pct 0.3 % [facility] Comment: Interpretive Data Percent cell count reference ranges are not reported, since discordance with absolute values may lead to misinterpretation of CBC data. Current Interpretive Data was last revised on 2017. Blood specimen (specimen) 10/26/2017 7:38 AM CDT 10/26/2017 7:54 AM CDT Narrative [facility] - 10/26/2017 8:02 AM CDT us Remi Garza MD LAB BLOOD ORDERABLES F inal Result [facility] [id number] [address] Department [place] [address] * (ABNORMAL) Magnesium (10/26/2017 7:38 AM CDT) Magnesium 1.7(L) 1.8 - 2.6 mg/dL [facility] Blood specimen (specimen) 10/26/2017 7:38 AM CDT 10/26/2017 7:54 AM CDT Narrative [facility] - 10/26/2017 8:15 AM CDT us Remi Garza MD LAB BLOOD ORDERABLES F inal Result [facility] [id number] [address] Department [place] [address] * (ABNORMAL) Basic metabolic panel (10/26/2017 7:38 AM CDT) Sodium 133(L) 135 - 145 mmol/L [facility] Potassium, pl 4.6 3.5 - 5.1 mmol/L [facility] Chloride 102 100 - 114 mmol/L [facility] CO2 23 22 - 32 mmol/L [facility] Anion gap 13 8 - 16 mmol/L [facility] BUN 17 8 - 24 mg/dL [facility] Creatinine 0.81 0.60 - 1.30 mg/dL [facility] Glucose 414(H) 70 - 199 mg/dL [facility] Comment: Interpretive Data Fasting [...] 2017. Calcium 9.4 8.4 - 10.5 mg/dL [facility] Blood specimen (specimen) 10/26/2017 7:38 AM CDT 10/26/2017 7:54 AM CDT Narrative [facility] - 10/26/2017 8:15 AM CDT Remi Garza MD LAB BLOOD ORDERABLES F inal Result Performing Organization Address [facility] de Phone Number MARY JANE [id number] [address] Department [employer] [place], [place] [id number] * (ABNORMAL) CBC with auto differential (10/26/2017 7:38 AM CDT) WBC 7.8 3.8 - 9.9 K/cumm [facility] RBC 4.19 3.90 - 5.20 M/cumm [facility] Hgb 11.6(L) 11.9 - 15.5 g/dL [facility] Hct 36.6 35.6 - 45.5 % [facility] MCV 87.4 81.3 - 96.4 fL [facility] MCH 27.7 27.1 - 33.3 pg [facility] MCHC 31.7(L) 32.3 - 35.7 g/dL [facility] RDW CV 14.6 11.1 - 14.9 % [facility] RDW SD 46.7 35.7 - 48.1 fL [facility] Plt 294 150 - 400 K/cumm [facility] MPV 9.8 9.1 - 12.3 fL [facility] NRBC abs 0.00 0.00 - 0.01 K/cumm [facility] Blood specimen (specimen) 10/26/2017 7:38 AM CDT 10/26/2017 7:54 AM CDT Narrative MARY JANE - 10/26/2017 8:02 AM CDT Remi Garza MD LAB BLOOD ORDERABLES F inal Result Performing Organization Address [facility] Co de Phone Number MARY JANE ARNOLD [id number] [address] [facility] [employer] [place] [place] [address] * aPTT (10/26/2017 7:38 AM CDT) aPTT 32.6 25.0 - 37.0 sec [facility] Blood specimen (specimen) 10/26/2017 7:38 AM CDT 10/26/2017 7:54 AM CDT Narrative [facility] - 10/26/2017 8:17 AM CDT Remi Garza MD LAB BLOOD ORDERABLES F inal Result Performing Organization Address [facility] Co de Phone Number MARY JANE ARNOLD [phone] [address] [facility] [employer] [place], [place] [id number] * Protime-INR (10/26/2017 7:38 AM CDT) PT 12.8 9.5 - 13.0 sec [facility] INR 1.13 0.90 - 1.20 [facility] Blood specimen (specimen) 10/26/2017 7:38 AM CDT 10/26/2017 7:54 AM CDT Narrative [facility] - 10/26/2017 8:14 AM CDT Remi Garza MD LAB BLOOD ORDERABLES F inal Result Performing Organization Address [facility] de Phone Number MARY JANE ARNOLD [phone] [address] Department [employer] [place], [place] [id number] * (ABNORMAL) POCT glucose (10/26/2017 4:57 AM CDT) Glucose, POC 439(H) 70 - 199 mg/dL [facility] Blood specimen (specimen) 10/26/2017 4:57 AM CDT 10/26/2017 4:57 AM CDT Narrative [facility] - 10/26/2017 5:18 AM CDT Remi Garza MD LAB POCT ORDERABLES - DEVICE Final Result Performing Organization Address [facility]/ZIP Co de Phone Number MARY JANE ARNOLD [phone] [address] [facility] [place] [address] * (ABNORMAL) POCT glucose (10/26/2017 2:09 AM CDT) Glucose, POC 315(H) 70 - 199 mg/dL MARY JANE Blood specimen (specimen) 10/26/2017 2:09 AM CDT 10/26/2017 2:09 AM CDT Narrative MARY JANE ARNOLD - 10/26/2017 2:11 AM CDT us Notinfile Unknown LAB POCT ORDERABLES - DEVICE F inal Result [facility] [id number] [address] Department of Laboratories [place] [phone] documented in this encounter Visit Diagnoses Diagnosis Acute left-sided low back pain with left-sided sciatica- Primary Sciatica of left side Spinal stenosis of lumbar region with neurogenic claudication Left leg weakness Muscle weakness (generalized) LUL (obstructive sleep apnea) Obstructive sleep apnea (adult) (pediatric) History of DVT (deep vein thrombosis) History of pulmonary embolism Personal history of venous thrombosis and embolism Cancer of overlapping sites of left female breast (HCC) Type 2 diabetes mellitus with neurologic complication, without long-term current use of insulin (HCC) Radiculopathy, lumbosacral region Thoracic or lumbosacral neuritis or radiculitis, unspecified Dysuria documented in this encounter Administered Medications Inactive Administered Medications - up to 3 most recent administrations Medication Order MAR Action Action Date Dose Rate Site cyclobenzaprine (FLEXERIL) tablet 5 mg 5 mg, oral, 3 times daily PRN, muscle spasms, Starting on Mon10/26/17 at 0442 Given 10/30/2017 9:18 AM CDT 5 mg Given 10/28/2017 8:11 PM CDT 5 mg dextrose 50% (concentrated solution) CONCENTRATED solution 25 g 25 g, intravenous, Every 15 min PRN, low blood sugar, blood glucose less than 70 mg/dL, Starting on Mon10/26/17 at 1130, If patient is NPO or unresponsive, give dextrose 50% IV Push over 2 minutes., Indications: HypoglycemiaIndications:Hypogl ycemia diphenhydrAMINE (BENADRYL) 50 mg/mL injection - ADS Override Pull Starting on Mon10/26/17 at 0227, For 1 dose, ABRAHAN BOYLE: cabinet override diphenhydrAMINE (BENADRYL) injection 25 mg 25 mg, intravenous, Once, On Valeri 10/26/17 at 0253, For 1 dose Given 10/26/2017 2:27 AM CDT 25 mg diphenhydrAMINE (BENADRYL) tab/cap 25 mg 25 mg, oral, 4 times daily PRN, itching, Starting on Mon10/30/17 at 1125 Given 10/30/2017 12:07 PM CDT 25 mg enoxaparin (LOVENOX) syringe 40 mg 40 mg, subcutaneous, Every 12 hours scheduled, First dose on [facility] 10/26/17 at 2100, Indications: VTE ProphylaxisIndications:VTE Prophylaxis Given 10/30/2017 9:13 AM CDT 40 mg Right Lower Abdomen Given 10/29/2017 8:42 PM CDT 40 mg Ri ght Upper Abdomen Given 10/29/2017 11:19 AM CDT 40 mg L eft Upper Abdomen exemestane (AROMASIN) tablet 25 mg 25 mg, oral, Daily, First dose on [facility] 10/26/17 at 0900 Given 10/30/2017 9:14 AM CDT 25 mg Given 10/29/2017 11:23 AM CDT 25 mg Given 10/28/2017 8:21 AM CDT 25 mg fluticasone (FLONASE) 50 mcg/actuation nasal spray 1 spray 1 spray, each nostril, 2 times daily, First dose (after last modification) on [facility] 10/26/17 at 0900 Given 10/29/2017 9:00 PM CDT 1 spray gabapentin (NEURONTIN) capsule 100 mg 100 mg, oral, 3 times daily, First dose on [facility] 10/26/17 at 0900 Given 10/31/2017 8:19 AM CDT 100 mg Given 10/30/2017 8:41 PM CDT 100 mg Given 10/30/2017 6:05 PM CDT 100 mg HYDROcodone-acetaminophen (NORCO) 5-325 mg per tablet 1 tablet 1 tablet, oral, 4 times daily PRN, 1st line for pain, Starting on [facility] 10/26/17 at 0507, Indications: PainIndications:Pain Given 10/31/2017 10:42 AM CDT 1 t ablet Given 10/31/2017 2:50 AM CDT 1 tablet Given 10/30/2017 6:05 PM CDT 1 tablet HYDROmorphone (DILAUDID) injection 0.5 mg 0.5 mg, intravenous, Every 4 hours PRN, 2nd line for pain, Starting on Mon10/26/17 at 0454 Given 10/31/2017 2:0 4 PM CDT 0.5 mg Given 10/31/2017 8:19 AM CDT 0.5 mg Given 10/31/2017 4:05 AM CDT 0.5 mg HYDROmorphone (DILAUDID) injection 0.5 mg 0.5 mg, intravenous, Once, On Mon10/27/17 at 0945, For 1 dose Given 10/27/2017 9:24 AM CDT 0.5 mg HYDROmorphone (DILAUDID) injection 0.5 mg 0.5 mg, intravenous, Once, On Mon10/28/17 at 2100, For 1 dose Given 10/28/2017 8:42 PM CDT 0.5 mg HYDROmorphone (DILAUDID) injection 0.5 mg 0.5 mg, intravenous, Once, On Mon10/30/17 at 2230, For 1 dose, Indications: PainIndications:Pain Given 10/30/2017 9:59 PM CDT 0.5 mg HYDROmorphone (DILAUDID) injection 1 mg 1 mg, intravenous, Once, On Mon10/25/17 at 2251, For 1 dose Given 10/25/2017 11:25 PM CDT 1 mg HYDROmorphone (DILAUDID) injection 1 mg 1 mg, intravenous, Once, On Mon10/31/17 at 1445, For 1 dose Given 10/31/2017 2:57 PM CDT 1 mg insulin glargine (LANTUS) injection 10 Units 10 Units, subcutaneous, Once, On Mon10/26/17 at 1200, For 1 dose, Do not mix with other insulins Given 10/26/2017 12:21 PM CDT 10 Units Right Upper Arm insulin glargine (LANTUS) injection 10 Units 10 Units, subcutaneous, Once, On Mon10/27/17 at 0945, For 1 dose, Do not mix with other insulins Given 10/27/2017 9:23 AM CDT 10 Units Right Upper Arm insulin glargine (LANTUS) injection 10 Units 10 Units, subcutaneous, Every morning, First dose on Mon10/29/17 at 0900, Do not mix with other insulins Given 10/29/2017 8:09 AM CDT 10 Units Right Upper Arm insulin glargine (LANTUS) injection 10 Units 10 Units, subcutaneous, Once, On 10/28/17 at 1745, For 1 dose, Do not mix with other insulins Given 10/28/2017 5:52 PM CDT 10 Units Right Upper Abdomen insulin glargine (LANTUS) injection 10 Units 10 Units, subcutaneous, Every morning, First dose (after last modification) on 10/30/17 at 0900, Do not mix with other insulins Given 10/30/2017 7:57 AM CDT 10 Units Right Upper Arm insulin lispro (HumaLOG) injection 1-3 Units 1-3 Units, subcutaneous, 3 times daily with meals, First dose on [facility] 10/26/17 at 0800, Blood Sugar Low Dose meal time - PO patients 175 or less No Insulin 176 - 200 1 unit 201 - 250 2 units 251 - 299 3 units Greater than 299 Call MD for hyperglycemia management instructions Do NOT hold for NPO status., Indications: Diabetes MellitusIndications:Diabetes Mellitus Given 10/26/2017 8:06 AM CDT 3 Units Left Upper Arm insulin lispro (HumaLOG) injection 1-4 Units 1-4 Units, subcutaneous, Nightly, First dose on [facility] 10/26/17 at 2100, Blood Sugar High Dose PM - PO patients 139 or less No insulin 140 - 175 1 unit 176 - 200 2 units 201 - 250 3 units 251 - 299 4 units Greater than 299 Call MD for hyperglycemia management instructions Do NOT hold for NPO status., Indications: Diabetes MellitusIndications:Diabetes Mellitus Given 10/30/2017 8:40 PM CDT 3 Units Left Lower Abdomen Given 10/29/2017 8:47 PM CDT 3 Units Le ft Lower Abdomen Given 10/28/2017 8:17 PM CDT 3 Units Le ft Lower Abdomen insulin lispro (HumaLOG) injection 1-7 Units 1-7 Units, subcutaneous, 3 times daily with meals, First dose on [facility] 10/26/17 at 1215, Blood Sugar High Dose meal time - PO patients 139 or less No insulin 140 - 175 2 unit 176 - 200 3 unit 201 - 250 5 units 251 - 299 7 units Greater than 299 Call MD for hyperglycemia management instructions Do NOT hold for NPO status., Indications: Diabetes MellitusIndications:Diabetes Mellitus Given 10/31/2017 2:08 PM CDT 2 Units Left Upper Arm Given 10/31/2017 7:53 AM CDT 3 Units Ri ght Upper Arm Given 10/30/2017 6:06 PM CDT 1 Units Ri ght Upper Arm insulin lispro (HumaLOG) injection 3 Units 3 Units, subcutaneous, Once, On Mon10/27/17 at 0530, For 1 dose, Administer pre-meal doses when pts food tray arrives in room. Do not administer pre-meal doses to NPO patients. Given 10/27/2017 4:55 AM CDT 3 Units Righ t Upper Arm insulin lispro (HumaLOG) injection 5 Units 5 Units, subcutaneous, Once, On Mon10/26/17 at 2200, For 1 dose, Administer pre-meal doses when pts food tray arrives in room. Do not administer pre-meal doses to NPO patients. Given 10/26/2017 9:47 PM CDT 5 Units Righ t Upper Arm insulin lispro (HumaLOG) injection 7 Units 7 Units, subcutaneous, Once, On Mon10/26/17 at 0545, For 1 dose, Administer pre-meal doses when pts food tray arrives in room. Do not administer pre-meal doses to NPO patients. Given 10/26/2017 5:31 AM CDT 7 Units Righ t Upper Arm lisinopril (PRINIVIL,ZESTRIL) tablet 20 mg 20 mg, oral, Daily, First dose on Mon10/26/17 at 0900 Given 10/31/2017 8:19 AM CDT 20 mg Given 10/30/2017 9:13 AM CDT 20 mg Given 10/29/2017 11:19 AM CDT 20 mg metFORMIN (GLUCOPHAGE) tablet 850 mg 850 mg, oral, 2 times daily with meals (bkfst, dinner), First dose on Mon10/30/17 at 1800, Take with food Given 10/31/2017 8:19 AM CDT 850 mg Given 10/30/2017 6:05 PM CDT 850 mg methylPREDNISolone sodium succinate (SOLU-medrol) preservative free injection 125 mg 125 mg, intravenous, Once, On Mon10/25/17 at 2251, For 1 dose Given 10/25/2017 11:25 PM CDT 125 mg ondansetron (ZOFRAN) injection 4 mg 4 mg, intravenous, Once, On Mon10/25/17 at 2251, For 1 dose, Indications: Nausea, VomitingIndications:Nausea,Vomiting Given 10/26/2017 2:12 AM CDT 4 mg ondansetron (ZOFRAN) injection 4 mg 4 mg, intravenous, Every 4 hours PRN, nausea, vomiting, Starting on Mon10/26/17 at 1127 Given 10/28/2017 8:09 AM CDT 4 mg oxybutynin XL (DITROPAN-XL) extended release tablet 5 mg 5 mg, oral, Daily, First dose on Mon10/26/17 at 0900, Do not crush or chew Given 10/31/2017 8:19 AM CDT 5 mg Given 10/30/2017 9:13 AM CDT 5 mg Given 10/29/2017 11:19 AM CDT 5 mg oxyCODONE-acetaminophen (PERCOCET) 5-325 mg per tablet 1 tablet 1 tablet, oral, Once, On Mon10/25/17 at 2251, For 1 dose, Indications: PainIndications:Pain Given 10/26/2017 2:12 AM CDT 1 tablet polyethylene glycol (MIRALAX) packet 17 g 17 g, oral, Daily, First dose on Mon10/26/17 at 0900 Given 10/31/2017 8:19 AM CDT 17 g Given 10/30/2017 9:13 AM CDT 17 g Given 10/29/2017 11:20 AM CDT 17 g rOPINIRole (REQUIP) tablet 5 mg 5 mg, oral, Nightly, First dose on Mon10/26/17 at 2100 Given 10/30/2017 8:41 PM CDT 5 mg Given 10/29/2017 8:42 PM CDT 5 mg Given 10/28/2017 8:11 PM CDT 5 mg SITagliptin (JANUVIA) tablet 50 mg 50 mg, oral, Daily, First dose on Mon10/30/17 at 1145, Indications: type 2 diabetes mellitusIndications:type 2 diabetes mellitus Given 10/31/2017 8:19 AM CDT 50 mg Given 10/30/2017 2:14 PM CDT 50 mg documented in this encounter Discontinued Medications Medication Sig Discontinue Reason Start Date End Da te gabapentin (NEURONTIN) 100 mg capsule Take 1 capsule (100 mg total) by mouth 3 (three) times a day. 10/23/2017 10/26/2017 HYDROcodone-acetaminoph en (NORCO) 5-325 mg per tabletIndications:Pain Take 1 tablet by mouth every 8 (eight) hours as needed for pain (1 tablet for mild to moderate pain or 2 tablets for severe pain). Do not exceed 8 tablets/day. 10/23/2017 10/31/2017 documented as of this encounter Active and Recently Administered Medications Times are shown in CDT. Scheduled Medication Order 10/29/2017 10/30/2017 10/31/2017 enoxaparin (LOVENOX) syringe 40 mg (CANCELED) 40 mg, subcutaneous, Every 12 hours scheduled, First dose on [facility] 10/26/17 at 2100, Indications: VTE Prophylaxis 1119 (Given - Provider: Jennifer Barroso RN)2041 (Given - Provider: Klarissa Melchor RN) 0913 (Given - Provider: Jo Odonnell) exemestane (AROMASIN) tablet 25 mg 25 mg, oral, Daily, First dose on [facility] 10/26/17 at 0900 1123 (Given - Provider: Jennifer Barroso RN) 0914 (Given - Provider: Jo Odonnell) 0900 (Not Given - Provider: Jo Odonnell - Reason: Medication not available) fluticasone (FLONASE) 50 mcg/actuation nasal spray 1 spray 1 spray, each nostril, 2 times daily, First dose (after last modification) on [facility] 10/26/17 at 0900 1125 (Not Given - Provider: Jennifer Barroso RN - Reason: Patient/family refused - Comment: not taking anymore)2100 (Given - Provider: Klarissa Melchor RN) 0914 (Not Given - Provider: Jo Odonnell - Reason: Patient/family refused - Comment: pt states she doesn't take this)2038 (Not Given - Provider: Madison Riddle RN - Reason: Patient/family refused) 0900 (Not Given - Provider: Jo Odonnell - Reason: Medication not available) gabapentin (NEURONTIN) capsule 100 mg 100 mg, oral, 3 times daily, First dose on Mon10/26/17 at 0900 1119 (Given - Provider: Jennifer Barroso RN)1712 (Given - Provider: Jennifer Barroso RN)2041 (Given - Provider: Klarissa Melchor RN) 09 (Given - Provider: Jo Odonnell)180 (Given - Provider: Cira Quiros RN)2040 (Given - Provider: Madison Riddle, NURIS) 08 (Given - Provider: Jo Odonnell) HYDROmorphone (DILAUDID) injection 0.5 mg (COMPLETED) 0.5 mg, intravenous, Once, On Mon10/30/17 at 2230, For 1 dose, Indications: Pain 215 (Given - Provider: Kasie Melara RN) HYDROmorphone (DILAUDID) injection 1 mg (COMPLETED) 1 mg, intravenous, Once, On Mon10/31/17 at 1445, For 1 dose 1457 (Given - Provider: Jo Odonnell) insulin glargine (LANTUS) injection 10 Units (CANCELED) 10 Units, subcutaneous, Every morning, First dose on Mon10/29/17 at 0900, Do not mix with other insulins 0809 (Given - Provider: Jennifer Barroso RN) insulin glargine (LANTUS) injection 10 Units (CANCELED) 10 Units, subcutaneous, Every morning, First dose (after last modification) on Mon10/30/17 at 0900, Do not mix with other insulins 0757 (Given - Provider: Jo Odonnell) insulin lispro (HumaLOG) injection 1-4 Units 1-4 Units, subcutaneous, Nightly, First dose on Mon10/26/17 at 2100, Blood Sugar High Dose PM - PO patients 139 or less No insulin 140 - 175 1 unit 176 - 200 2 units 201 - 250 3 units 251 - 299 4 units Greater than 299 Call MD for hyperglycemia management instructions Do NOT hold for NPO status., Indications: Diabetes Mellitus 2046 (Given - Provider: Klarissa Melchor RN) 2039 (Given - Provider: Madison Riddle RN) insulin lispro (HumaLOG) injection 1-7 Units 1-7 Units, subcutaneous, 3 times daily with meals, First dose on Mon10/26/17 at 1215, Blood Sugar High Dose meal time - PO patients 139 or less No insulin 140 - 175 2 unit 176 - 200 3 unit 201 - 250 5 units 251 - 299 7 units Greater than 299 Call MD for hyperglycemia management instructions Do NOT hold for NPO status., Indications: Diabetes Mellitus 0802 (Given - Provider: Jennifer Barroso RN)1259 (Given - Provider: Jennifer Barroso RN)1756 (Given - Provider: Jennifer Barroso RN) 0756 (Given - Provider: Jo Odonnell)1249 (Given - Provider: Jo Odonnell)1806 (Given - Provider: Cira Quiros RN) 0753 (Given - Provider: Kirti Almendarez, NURIS)1408 (Given - Provider: Kirti Almendarez RN) lisinopril (PRINIVIL,ZESTRIL) tablet 20 mg 20 mg, oral, Daily, First dose on Mon10/26/17 at 0900 1119 (Given - Provider: Jennifer Barroso RN) 0913 (Given - Provider: Jo Odonnell) 0819 (Given - Provider: Jo Odonnell) metFORMIN (GLUCOPHAGE) tablet 850 mg 850 mg, oral, 2 times daily with meals (bkfst, dinner), First dose on Mon10/30/17 at 1800, Take with food 1805 (Given - Provider: Cira Quiros RN) 0819 (Given - Provider: Jo Odonnell) oxybutynin XL (DITROPAN-XL) extended release tablet 5 mg 5 mg, oral, Daily, First dose on Mon10/26/17 at 0900, Do not crush or chew 1119 (Given - Provider: Jennifer Barroso RN) 0913 (Given - Provider: Jo Odonnell) 0819 (Given - Provider: Jo Odonnell) polyethylene glycol (MIRALAX) packet 17 g 17 g, oral, Daily, First dose on Mon10/26/17 at 0900 1120 (Given - Provider: Jennifer Barroso RN) 0913 (Given - Provider: Jo Odonnell) 0819 (Given - Provider: Jo Odonnell) rOPINIRole (REQUIP) tablet 5 mg 5 mg, oral, Nightly, First dose on [facility] 10/26/17 at 2100 2042 (Given - Provider: Klarissa Melchor, RN) 2040 (Given - Provider: Madison Riddle, NURIS) SITagliptin (JANUVIA) tablet 50 mg 50 mg, oral, Daily, First dose on 10/30/17 at 1145, Indications: type 2 diabetes mellitus 1414 (Given - Provider: Jo Odonnell) 0819 (Given - Provider: Jo Odonnell) PRN Medication Order 10/29/2017 10/30/2017 10/31/2017 albuterol HFA (PROVENTIL HFA,VENTOLIN HFA,PROAIR HFA) 90 mcg/actuation inhaler 2 puff 2 puff, inhalation, Every 4 hours PRN (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 responsibility officer), wheezing, Starting on [facility] 10/26/17 at 0456, Indications: Bronchospasm Prevention cyclobenzaprine (FLEXERIL) tablet 5 mg 5 mg, oral, 3 times daily PRN, muscle spasms, Starting on [facility] 10/26/17 at 0442 0918 (Given - Provider: Jo Odonnell) dextrose 50% (concentrated solution) CONCENTRATED solution 25 g 25 g, intravenous, Every 15 min PRN, low blood sugar, blood glucose less than 70 mg/dL, Starting on [facility] 10/26/17 at 0501, If patient is NPO or unresponsive, give dextrose 50% IV Push over 2 minutes., Indications: Hypoglycemia dextrose 50% (concentrated solution) CONCENTRATED solution 25 g 25 g, intravenous, Every 15 min PRN, low blood sugar, blood glucose less than 70 mg/dL, Starting on [facility] 10/26/17 at 1130, If patient is NPO or unresponsive, give dextrose 50% IV Push over 2 minutes., Indications: Hypoglycemia dextrose oral liquid liquid 15 g 15 g, oral, Every 15 min PRN, low blood sugar, blood glucose less than 70 mg/dL, Starting on [facility] 10/26/17 at 0501, If patient is alert and able to eat/drink, give 15 gram glucose or one juice (4 fluid ounces) NOT ORANGE JUICE diphenhydrAMINE (BENADRYL) tab/cap 25 mg 25 mg, oral, 4 times daily PRN, itching, Starting on 10/30/17 at 1125 1207 (Given - Provider: Jo Odonnell) glucagon injection 1 mg 1 mg, intramuscular, Every 30 min PRN, low blood sugar, blood glucose less than 70 mg/dL, Starting on [facility] 10/26/17 at 0501, If patient has no IV access and not alert, given Glucagon IM then follow with either oral glucose or IV dextrose treatment., Indications: Hypoglycemia HYDROcodone-acetaminophe n (NORCO) 5-325 mg per tablet 1 tablet 1 tablet, oral, 4 times daily PRN, 1st line for pain, Starting on [facility] 10/26/17 at 0507, Indications: Pain 0407 (Given - Provider: Lila Ramirez RN)1305 (Given - Provider: Jennifer Barroso RN) 0454 (Given - Provider: Klarissa Melchor RN)1207 (Given - Provider: Jo Odonnell)1805 (Given - Provider: Cira Quiros RN) 0250 (Given - Provider: Madison Riddle RN)1042 (Given - Provider: Jo Odonnell) HYDROmorphone (DILAUDID) injection 0.5 mg 0.5 mg, intravenous, Every 4 hours PRN, 2nd line for pain, Starting on [facility] 10/26/17 at 0454 0606 (Given - Provider: Lila Ramirez RN)1113 (Given - Provider: Jennifer Barroso RN)1617 (Given - Provider: Jennifer Barroso RN)2038 (Given - Provider: Klarissa Melchor RN) 0005 (Given - Provider: Klarissa Melchor RN)0638 (Given - Provider: Klarissa Melchor, NURIS)1018 (Given - Provider: Jo Odonnell)1417 (Given - Provider: Jo Odonnell)1921 (Given - Provider: Kasie Melara, NURIS)2159 (Not Given - Provider: Kasie Melara, NURIS - Reason: Other) 0405 (Given - Provider: Madison Riddle RN)0819 (Given - Provider: Jo Odonnell)1404 (Given - Provider: Kirti Almendarez RN) iohexol (OMNIPAQUE) 240 mg iodine/mL injection solution (CANCELED) As needed, Starting on Mon10/31/17 at 1238, Intra-Op 1238 (Given - Provider: John Paul Moyer MD) lidocaine (XYLOCAINE) 10 mg/mL (1 %) injection (CANCELED) As needed, Starting on Mon10/31/17 at 1238, Intra-Op, Indications: Administration of Local Anesthesia 1238 (Given - Provider: John Paul Moyer MD) ondansetron (ZOFRAN) injection 4 mg 4 mg, intravenous, Every 4 hours PRN, nausea, vomiting, Starting on [facility] 10/26/17 at 1127 sodium chloride 0.9% solution (CANCELED) As needed, Starting on Mon10/31/17 at 1238, Intra-Op 1238 (Given - Provider: John Paul Moyer MD) triamcinolone (KENALOG) 40 mg/mL injection (CANCELED) As needed, Starting on Mon10/31/17 at 1239, Intra-Op 1239 (Given - Provider: John Paul Moyer MD) documented in this encounter Orders Medications Ordered That Tyler ht Not Have Been Administered Count Last Ordered Date First Ordered Date iohexol (OMNIPAQUE) 240 mg i odine/mL injection solution 1 10/31/2017 lidocaine (XYLOCAINE) 10 mg/ mL (1 %) injection 1 10/31/2017 sodium chloride 0.9% solution 1 10/31/2017 triamcinolone (KENALOG) 40 mg/mL injection 1 10/31/2017 insulin glargine (LANTUS) in jection 15 Units 2 10/30/2017 insulin glargine (LANTUS) in jection 12 Units 1 10/29/2017 acetaminophen (TYLENOL) tablet 650 mg 1 08/2017 albuterol HFA (PROVENTIL HFA ,VENTOLIN HFA,PROAIR HFA) 90 mcg/actuation inhaler 2 puff 1 10/26/2017 bisacodyl (DULCOLAX) suppository 10 mg 1 bisacodyl EC (DULCOLAX EC) tablet 10 mg 1 0 10/26/2017 dextrose 50% (concentrated s olution) CONCENTRATED solution 25 g 2 10/26/2017 dextrose oral liquid liquid 15 g 1 10/27/19 18 glucagon injection 1 mg 1 10/26/2017 heparin 5,000 unit/mL inject ion 5,000 Units 1 10/26/2017 HYDROcodone-acetaminophen (N ORCO) 5-325 mg per tablet 1 tablet 1 10/26/2017 insulin lispro (HumaLOG) inj ection 1-2 Units 1 10/26/2017 insulin lispro (HumaLOG) inj ection 10 Units 1 10/26/2017 oxyCODONE (ROXICODONE) tablet 10 mg 1 10/26 oxyCODONE-acetaminophen (PER COCET) 5-325 mg per tablet 1 tablet 3 10/26/2017 polyethylene glycol (MIRALAX) packet 17 g 1 10/26/2017 prochlorperazine (COMPAZINE) injection 10 mg 2 10/26/2017 prochlorperazine (COMPAZINE) tablet 10 mg 1 10/26/2017 rivaroxaban (XARELTO) tablet 10 mg 1 2017 Lab Orders Without Results Count Last Ordered D ate First Ordered Date POCT GLUCOSE DEVICE 9 10/30/2017 10/27/19 18 Diet Count Last Ordered Date First Orde red Date ADULT DISCHARGE DIET 1 10/31/2017 Nursing Count Last Ordered Date First Orde red Date DISCHARGE ACTIVITY 3 10/31/2017 DISCHARGE CALL PROVIDER 8 10/31/2017 DISCHARGE INSTRUCTIONS 2 10/31/2017 FOLLOW UP PRIMARY PHYSICIAN 1 10/31/2017 FOLLOW UP WITH PROVIDER 3 10/31/2017 Consult Count Last Ordered Date First Orde red Date IP CONSULT TO NUTRITION SERVICES 2 10/29/19 18 10/26/2017 IP CONSULT TO ORTHOPEDIC SURGERY 1 10/27/19 18 Admission Count Last Ordered Date First Orde red Date ASSIGN PATIENT STATUS 2 10/26/2017 CORE MEASURES Count Last Ordered Date First Ord ered Date REASON FOR NO VTE PROPHYLAXI S - HOSPITAL ADMISSION - MEDICATIONS 1 10/26/2017 ADT Patient Update Count Last Ordered Date Firs t Ordered Date ED IP DECISION TO ADMIT 1 10/26/2017 documented in this encounter Care Teams [employer] Relationship Specialty Start Date End Date Justen Gale MD [address] [place] [id number] PCP - General 10/09/17 Liu Jerez MD Consulting Physician Gastroenterology 07/28/17 [place] [address] [address] [facility] [address] [place] [address] Consulting Physician Pulmonary Disease 08/03/17 Khris Arthur MD [address] [facility] [address] [place] [address] Medical Oncologist/Static Balancer Medical Oncology 10/23/17 [place] [address] [address] [facility] [address] [place] [address] Surgeon Orthopedic Surgery 10/23/17 [place] [address] [address] [facility] [address] [place] [address] Consulting Physician Pain Management 10/23/17 documented as of this encounter
--- OUTSIDE RECORDS SUMMARY | 2024-04-26 04:28 | XMS_ITS | Encounter Summary ---
Author Organization [facility] Address [address] [place] [address] Care Team Providers Care Knitting Tester Name Role Phone Lavonne Hathaway MD Primary Care Provider [phone] Liu Jerez MD Unavailable [phone] Encounter Details Date Type Department Care Team (Late st Contact Info) Description 07/28/2017 11:57 AM CDT Anesthesia Event [facility] [address] [place] [id number] Keith Andrews MD [address] [place], [place] [id number] Anesthesia Record Procedure Summary Procedure Name Responsible Anesthesiologist Anesthesia Start Time Anesthesia Stop Time ESOPHAGOGASTRODUODENOSCOPY BIOPSY Keith Andrews MD 07/28/17 1157 07/28/17 1221 Events Date Time Event Comment 07/28/2017 1121 1155 In Room 1157 An Start 1157 An Start Data 1157 Start Supplemental O2 1206 Patient Positioned Laterally 1209 Bite Block Placed 1209 An Induction The patient was reevaluated immediately before moderate or deep sedation use and before anesthesia induction. 1209 Anesthesia Ready 1216 Out of Room 1217 an stop data 1221 Handoff to RN I completed my handoff to the receiving nurse during which we: 1. Patient identified 2. Responsible provider identified 3. Pertinent medical history reviewed 4. Procedure type and surgical course discussed 5. Intraoperative anesthetic management and any significant issues discussed 6. Expectations and concerns for postop period discussed 7. Questions solicited from receiving nurse 8. Patient disposition at the time of handoff: PACU 1221 An Stop Meds Name Total propofol 100 mg lidocaine 2 % 40 mg midazolam 2 mg fentaNYL 100 mcg sodium chloride 0.9% infusion 200 mL * Agents Name O2 * Blood No blood administrations on file. Lines, Drains, and Airways Type Details Placement Removal Peripheral IV Placement Date: 09/08; Change Due: 07/31/17; Catheter Size: 20 G; Orientation: Right; Location: Antecubital; Inserted by: ER staff; Removal Date: 07/28/17; Removal Time: 1448 07/27/17 0000 by Lila Arita RN 07/28/17 1448 by Lila Arita RN documented in this encounter Social History Tobacco Use Types Packs/Day Years Used Date Smoking Tobacco: Former Smokeless Tobacco: Never Alcohol Use Standard Drinks/Week Comments No 0 (1 standard drink = 0.6 oz pur e alcohol) Comments Unknown Sex and Gender Information Value Date Recorded Sex Assigned at Not on file 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 Gender Identity Not on file Sexual Orientation Not on file documented as of this encounter OR Notes * Anesthesia Postprocedure Evaluation - Keith Andrews MD - 07/28/2017 12:55 PM CDT Patient: Karly Marques Procedure Summary Date: 07/28/17 Room / Location: ENDOSCOPY ROOM 3 / ENDOSCOPY Anesthesia Start: 1157 Anesthesia Stop: 1221 Procedure: ESOPHAGOGASTRODUODENOSCOPY BIOPSY (N/A ) Diagnosis: Nausea and vomiting, intractability of vomiting not specified, unspecified vomiting type (Nausea and vomiting, intractability of vomiting not specified, unspecified vomiting type [R11.2]) Provider: Liu Jerez MD Responsible Provider: Keith Andrews MD Anesthesia Type: general/TIVA ASA Status: 3 Anesthesia Type: general/TIVA Last vitals BP 94/51 (07/28/17 1235) Temp Pulse 83 (07/28/17 1235) Resp 21 (07/28/17 1235) SpO2 99 % (07/28/17 1235) Anesthesia Post Evaluation Patient location during evaluation: PACU Patient participation: complete - patient participated Level of consciousness: fully awake Pain score: 0 Pain management: adequate Airway patency: adequate Evidence of recall: no Anesthetic complications: no Cardiovascular status: acceptable Respiratory status: acceptable Hydration status: acceptable Pt is: normothermic Nausea/Vomiting status: none * Anesthesia Preprocedure Evaluation - Keith Andrews MD - 07/28/2017 11:14 AM CDT Anesthesia Evaluation Karly Marques is a 62 y.o. female HISTORY Past Medical History Information obtained from: patient and chart. Cardiovascular + Hypertension +CHF Respiratory + Sleep apnea (LUL) Prescribed device: CPAP. Endocrine / Other + Diabetes mellitus - Diabetes type 2. Diabetic complications: neuropathy. Outpatient insulin use: none. + Thyroid disease + Obesity (BMI >30) + Cancer history- s/p radiation. Cancer type: breast. + Osteoarthritis Functional Capacity Functional capacity: <4 METs Patient Active Problem List Diagnosis ??? Restless legs syndrome ??? Pain of lower extremity ??? Generalized weakness ??? Dyspnea ??? Unintentional weight loss ??? Acute cystitis without hematuria ??? Nausea and vomiting Past Medical History: Diagnosis Date ??? Adiposity obesity ??? Cancer (CMS/HCC) breast ??? CHF (congestive heart failure) (CMS/HCC) ??? Depression Depression ??? Diabetes (CMS/HCC) ??? Disorder of thyroid Thyroid disease ??? DVT (deep venous thrombosis) (CMS/HCC) ??? HX OTHER MEDICAL restless leg syndrome ??? HX OTHER MEDICAL RLS ??? Hypertension Hypertension ??? Osteoarthritis osteoarthritis ??? PE (pulmonary thromboembolism) (CMS/HCC) Past Surgical History: Procedure Laterality Date [...] US SOFT TISSUE ABSCESS DRAIN N/A 10/24/2014 OB History No data available Allergies Allergen Reactions ??? Cephalosporins ??? Ceftriaxone Other (See comments) Reaction: Other allergic reaction, ??? Metoclopramide Other (See comments) Reaction: Feels funny, HOME MEDICATIONS : exemestane (AROMASIN) 25 mg tablet rivaroxaban (XARELTO) 10 mg tablet HYDROcodone-acetaminophen (NORCO) 5-325 mg per tablet lisinopril (PRINIVIL,ZESTRIL) 20 mg tablet oxybutynin (DITROPAN) 5 mg tablet rOPINIRole (REQUIP) 5 mg tablet Current Facility-Administered Medications: ??? aspirin enteric coated tablet 81 mg, 81 mg, oral, Once ??? diphenhydrAMINE (BENADRYL) tab/cap 25 mg, 25 mg, oral, QID PRN ??? exemestane (AROMASIN) tablet 25 mg, 25 mg, oral, Daily, 25 mg at 07/28/17 0824 ??? gabapentin (NEURONTIN) capsule 300 mg, 300 mg, oral, TID ??? HYDROcodone-acetaminophen (NORCO) 5-325 mg per tablet 1 tablet, 1 tablet, oral, QID PRN, 1 tablet at 07/27/17 1719 ??? ipratropium-albuterol (DUO-NEB) 0.5-2.5 mg/3 mL nebulizer solution 3 mL, 3 mL, nebulization, Q4H PRN (RT) ??? lisinopril (PRINIVIL,ZESTRIL) tablet 20 mg, 20 mg, oral, Daily, 20 mg at 07/28/17821 ??? methIMAzole (TAPAZOLE) tablet 5 mg, 5 mg, oral, Daily ??? metoprolol (LOPRESSOR) tablet 25 mg, 25 mg, oral, Daily ??? oxybutynin (DITROPAN) tablet 5 mg, 5 mg, oral, BID, 5 mg at 07/28/17821 ??? rivaroxaban (XARELTO) tablet 10 mg, 10 mg, oral, Daily, 10 mg at 07/27/17 1133 ??? rOPINIRole (REQUIP) tablet 5 mg, 5 mg, oral, Nightly, 5 mg at 07/27/172021 ??? sodium chloride 0.9% flush 0.5-20 mL, 0.5-20 mL, intra-catheter, Q8H RODERICK, 10 mL at 07/28/17 0654 ??? sodium chloride 0.9% flush 0.5-20 mL, 0.5-20 mL, intra-catheter, PRN ??? traMADol (ULTRAM) tablet 50 mg, 50 mg, oral, QID PRN Social History Smoking Status ??? Former Smoker Smokeless Tobacco ??? Never Used Alcohol Use No Drug Use No Family History Problem Relation Age of [...] Other Family history of restless leg syndrome; PAT Physical Exam Vitals: 07/27/17 1618 07/27/17 1900 07/28/17 0750 BP: 107/70 103/72 123/86 Pulse: 84 82 82 Resp: Temp: 36.4 ??C (97.6 ??F) 36.6 ??C (97.8 ??F) 36.4 ??C (97.5 ??F) SpO2: 99% 99% 96% PT: 07/26/2017: 14.4 sec* INR: 07/26/2017: 1.27* APTT: No results found for requested labs within last 720 hours. Hgb A1C: No results found for requested labs within last 720 hours. CBC RBC: 07/26/2017: 4.59 M/cumm RDW: No results found for requested labs within last 720 hours. MCHC: 07/26/2017: 30.8 g/dL* MCH: 07/26/2017: 27.0 pg* MCV: 07/26/2017: 87.6 fL Hct: 07/26/2017: 40.2 % Hgb: 07/26/2017: 12.4 g/dL WBC: 07/26/2017: 16.51 K/cumm* MPV: 07/26/2017: 9.6 fL Platelets: 07/26/2017: 372 K/cumm RDW CV: 07/26/2017: 15.0 %* RDW Sd: 07/26/2017: 48.1 fL BMP Glucose: 07/26/2017: 191 mg/dL Calcium: 07/26/2017: 9.3 mg/dL Sodium: 07/26/2017: 132 mmol/L* Potassium: 07/26/2017: 3.9 mmol/L CO2: 07/26/2017: 25 mmol/L Chloride: 07/26/2017: 101 mmol/L BUN: 07/26/2017: 20 mg/dL Creatinine: 07/26/2017: 0.80 mg/dL DOS Physical Exam Medical history, medications, and allergies reviewed. Attestation: I endorse the findings of the anesthesia pre-evaluation assessment dated: 07/28/2017. Airway Exam: Mallampati: III Cervical ROM: FROM TM distance: 3.5 Jaw ROM: full Cardiovascular Exam: Rhythm: regular Pulmonary Exam: LCTA, bilat EENT Exam: trachea midline Skin Exam: Skin is warm. Capillary refill is < 3 seconds. Turgor is normal. Abdominal Exam: Abdomen is soft. Bowel sounds are present. Current state: Patients current state is cooperative. Anesthesia Plan ASA 3 Planned anesthesia: General/TIVA Induction: Induction: intravenous. Postoperative Plan: Patient's planned disposition post procedure is Floor. Informed Consent: Discussed plan with ENTRY OPERATOR. Anesthesia plan and risks discussed with patient. Consent and Attending signature: I and/or my designee have discussed the anesthesia plan, benefits, possible alternatives, parental presence at time of induction (if indicated), and clinically relevant risks that may include dental injury, unintentional awareness, and/or other complications. The patient and/or parent/legal guardian understand, and agree to proceed. All questions answered. Lost 40 lbs since March Severe restless leg syndrome documented in this encounter Plan of Treatment Not on file documented as of this encounter Visit Diagnoses Not on filedocumented in this encounter Administered Medications Inactive Administered Medications - up to 3 most recent administrations Medication Order MAR Action Action Date Dose Rate Site fentaNYL (SUBLIMAZE) preservative free injection As needed, Starting on Mon07/28/17 at 1150, Anesthesia Intra-op Given 07/28/2017 11:50 AM CDT 100 mcg lidocaine (XYLOCAINE) 20 mg/mL (2 %) preservative free injection intravenous, As needed, Starting on Mon07/28/17 at 1209, Anesthesia Intra-op Given 07/28/2017 12:09 PM CDT 40 mg midazolam (VERSED) preservative free injection As needed, Starting on Mon07/28/17 at 1150, Anesthesia Intra-op Given 07/28/2017 11:50 AM CDT 2 mg propofol (DIPRIVAN) IV intravenous, As needed, Starting on Mon07/28/17 at 1209, Anesthesia Intra-op Given 07/28/2017 12:12 PM CDT 40 mg Given 07/28/2017 12:09 PM CDT 60 mg documented in this encounter Care Teams Knitting Tester Relationship Specialty Start Date End Date Lavonne Hathaway MD [address] [place] [address] [place] [address] PCP - General 08/16/16 08/17/17 Liu Jerez MD [address] [place] [address] [place] [address] Consulting Physician Gastroenterology 07/28/17 documented as of this encounter
--- OUTSIDE RECORDS SUMMARY | 2024-04-26 04:28 | XMS_ITS | Encounter Summary ---
Author Organization [facility] Healthcare Address [address] [place] [address] Care Team Providers Care Roll Up Guider Operator Name Role Phone Lavonne Hathaway MD Primary Care Provider [phone] Liu Jerez MD Unavailable [phone] Albert Corbin MD Unavailable Encounter Details Date Type Department Care Team (Latest Contact Info) Description 08/15/2017 12:35 AM CDT - 08/15/2017 11:59 PM CDT Hospital Encounter [facility] Diagnostic Imaging [address] [place] [address] [place] [address] [facility] [address] [place] [id number] Discharge Disposition: Discharge to home or self care Social History Tobacco Use Types Packs/Day Years Used Date Smoking Tobacco: Former Smokeless Tobacco: Never Alcohol Use Standard Drinks/Week Comments No 0 (1 standard drink = 0.6 oz pur e alcohol) Comments No Sex and Gender Information Value Date Recorded Sex Assigned at Not on file 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 10 tablet 08/15/2017 08/20/2017 albuterol HFA (PROVENTIL HFA) 90 mcg/actuation inhaler Inhale 2 puffs. 08/15/2017 01/23/2018 albuterol HFA (PROVENTIL HFA,VENTOLIN HFA) 90 mcg/actuation inhalerIndicatio ns:Bronchospasm Prevention Inhale 2 puffs every 4 (four) hours as needed for wheezing. 1 Inhaler 08/15/2017 08/18/2017 azithromycin (ZITHROMAX) 250 mg tablet Take 2 tablets the first day, then 1 tablet daily for 4 days 6 tablet 08/15/2017 10/23/2017 baclofen (LIORESAL) 10 mg tablet TAKE 0.5-1 TAB EVERY 12 HOURS NEEDED FOR MUSCLE CRAMPING/SPASM S 05/31/2017 01/01/2018 exemestane (AROMASIN) 25 mg tablet Take 25 mg by mouth daily. After a meal 12/12/2017 exemestane (AROMASIN) 25 mg tablet TAKE 1 TABLET BY MOUTH DAILY AFTER A MEAL 08/09/2016 12/13/2017 gabapentin (NEURONTIN) 300 mg capsule TAKE 2 CAPSULE 3 TIMES DAILY 05/31/2017 01/23/2018 guaiFENesin-code ine (GUAITUSS AC) liquid 100-10 mg/5 mL Take 5 mL by mouth. 08/13/2017 01/23/2018 HYDROcodone-acet aminophen (NORCO) 5-325 mg per tabletIndication s:Pain Take 1-2 tablets by mouth every 6 (six) hours as needed for pain (1 tablet for mild to moderate pain or 2 tablets for severe pain). 12 tablet 08/15/2017 10/23/2017 lisinopril (PRINIVIL,ZESTRI L) 20 mg tablet take 1 Tablet (20MG) by oral route every day 0 05/11/2012 12/12/2017 lisinopril (PRINIVIL,ZESTRI L) 20 mg tablet Take 20 mg by mouth. 05/11/2012 09/12/2021 omeprazole (PriLOSEC) 40 mg capsule Take 1 capsule (40 mg total) by mouth daily. 30 capsule 11 07/28/2017 10/23/2017 oxybutynin (DITROPAN) 5 mg tablet take 1 tablet by oral route every day 0 0 12/12/2013 01/26/2023 oxybutynin (DITROPAN) 5 mg tablet Take 5 mg by mouth. 12/12/2013 12/12/2017 polyethylene glycol (MIRALAX) 17 gram/dose powder Mix 1 scoop (17 g) in 8 oz of water and drink daily. 527 g 08/15/2017 10/29/2020 polyethylene glycol (MIRALAX) 17 gram/dose powder Mix 1 scoop (17 g) in 8 oz of water and drink daily. 08/15/2017 01/23/2018 rivaroxaban (XARELTO) 10 mg tablet Take 20 mg by mouth daily after dinner. 11/13/2017 rivaroxaban (XARELTO) 20 mg tablet Take 20 mg by mouth. 08/08/2017 03/23/2018 rOPINIRole (REQUIP) 5 mg tablet take 1 tablet (5MG) by oral route every day at bedtime 0 05/11/2012 12/12/2017 sitaGLIPtin-metf ormin (JANUMET) 50-1,000 mg per tablet Take 1 tablet by mouth daily. 11/06/2017 documented as of this encounter Discharge Disposition Disposition Code Departure Means Destination Discharge to home or self care documented in this encounter Plan of Treatment Not on file documented as of this encounter Procedures Procedure Name Priority Date/Time Associated Diagnosis Comments XR CHEST 1 VIEW ED 08/15/2017 12:42 AM CDT documented in this encounter Results * XR Chest 1 Vw (08/15/2017 12:42 AM CDT) Anatomical Region Laterality Modality Body, Chest N/A Computed Radiogr aphy Impressions 08/15/2017 8:14 AM CDT NO ACUTE PULMONARY CHANGE. Electronically signed by: Avery Lambert 08/15/2017 8:14 AM CDT RESULT: HISTORY: Cough EXAMINATION: XR CHEST 1 VIEW single lateral view only ORDER DATE: 08/15/2017 12:40 AM FINDINGS: There are small scattered parenchymal and perihilar granulomatous calcifications. The cardiac and mediastinal outlines are unremarkable. There are no pleural effusions or infiltrates. No significant abnormalities are noted in the spine or remainder of the bony thorax. Procedure Note Aguila Grijalva MD - 08/15/2017 RESULT: HISTORY: Cough EXAMINATION: XR CHEST 1 VIEW single lateral view only ORDER DATE: 08/15/2017 12:40 AM FINDINGS: There are small scattered parenchymal and perihilar granulomatous calcifications. The cardiac and mediastinal outlines are unremarkable. There are no pleural effusions or infiltrates. No significant abnormalities are noted in the spine or remainder of the bony thorax. IMPRESSION: NO ACUTE PULMONARY CHANGE. Electronically signed by: Aguila Grijalva M.D. Devonte Cruz MD IMG XR PROCEDURES Deann l Result documented in this encounter Visit Diagnoses Not on filedocumented in this encounter Care Teams Roll Up Guider Operator Relationship Specialty Start Date End Date Lavonne Hathaway MD [facility] [place] [address] PCP - General 08/16/16 08/17/17 Liu Jerez MD [facility] [place] [address] Consulting Physician Gastroenterology 07/28/17 [place] [address] [facility] [address] [place] [address] Consulting Physician Pulmonary Disease 08/03/17 documented as of this encounter
--- OUTSIDE RECORDS SUMMARY | 2024-04-26 04:28 | XMS_ITS | Encounter Summary ---
Author Organization [facility] Healthcare Address [address] [place] [address] Care Team Providers Care Gauntlet Pairer Name Role Phone Liu Jerez MD Unavailable [phone] Albert Corbin MD Unavailable [phone] Justen Gale MD Primary Care Provider [phone] Encounter Details Date Type Department Care Team (Latest Contact Info) Description 10/09/2017 11:35 AM CDT - 10/09/2017 11:59 PM CDT Hospital Encounter [facility] [address] [place] [address] Discharge Disposition: Discharge to home or self care Social History Tobacco Use Types Packs/Day Years Used Date Smoking Tobacco: Former Smokeless Tobacco: Never Alcohol Use Standard Drinks/Week Comments No 0 (1 standard drink = 0.6 oz pur e alcohol) Comments No Sex and Gender Information Value Date Recorded Sex Assigned at Not on file 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 8 tablet 10/09/2017 8 albuterol HFA (PROVENTIL HFA) 90 mcg/actuation inhaler Inhale 2 puffs. 08/15/2017 8 albuterol HFA (PROVENTIL HFA,VENTOLIN HFA) 90 mcg/actuation inhalerIndications: Bronchospasm Prevention Inhale 2 puffs every 4 (four) hours as needed for shortness of breath. 1 Inhaler 08/18/2017 8 albuterol HFA (PROVENTIL HFA,VENTOLIN HFA) 90 mcg/actuation inhalerIndications: Bronchospasm Prevention Inhale [...] 2 CAPSULE 3 TIMES DAILY 05/31/2017 8 guaiFENesin-codeine (GUAITUSS AC) liquid 100-10 mg/5 mL Take 5 mL by mouth. 08/13/2017 8 HYDROcodone-acetami nophen (NORCO) 5-325 mg per tabletIndications:P ain Take 1-2 tablets by mouth every 6 (six) hours as needed for pain (1 tablet for mild to moderate pain or 2 tablets for severe pain). 12 tablet 08/15/2017 8 HYDROcodone-acetami nophen (NORCO) 5-325 mg per tabletIndications:P ain Take 1-2 tablets by mouth every 4 (four) hours as needed for pain (1 tablet for mild to moderate pain or 2 tablets for severe pain). Do not exceed 8 tablets/day. 20 tablet 10/09/2017 8 HYDROcodone-acetami nophen (NORCO) 5-325 mg per tabletIndications:P ain Take 1 tablet by mouth every 30 minutes as needed. 09/14/2017 8 HYDROcodone-homatro pine (HYCODAN) 1-0.3 mg/mL syrupIndications:Co ugh Take 5 mL by mouth every 4 (four) hours as needed for cough. 120 mL 08/18/2017 8 lisinopril (PRINIVIL,ZESTRIL) 20 mg tablet take 1 Tablet (20MG) by oral route every day 0 05/11/2012 8 lisinopril (PRINIVIL,ZESTRIL) 20 mg tablet Take 20 mg by mouth. 05/11/2012 2 loratadine (CLARITIN) 10 mg tablet Take 1 tablet (10 mg total) by mouth daily. 20 tablet 08/18/2017 8 LYRICA 75 mg capsule 0 09/15/2017 8 omeprazole (PriLOSEC) 40 mg capsule Take 1 capsule (40 mg total) by mouth daily. 30 capsule 11 07/28/2017 8 ondansetron ODT (ZOFRAN-ODT) 4 mg disintegrating [...] Name Priority Date/Time Associated Diagnosis Comments US VEIN DUPLEX LOWER EXTREMITY LEFT LIMITED ED 10/09/2017 1:39 PM CDT documented in this encounter Results * US Vein Duplex Lower Extremity Left Limited (10/09/2017 1:39 PM CDT) Anatomical Region Laterality Modality Vascular Left Ultrasound 10/09/2017 1:52 PM CDT Impressions 10/09/2017 2:05 PM CDT No femoropopliteal venous thrombosis seen in the left lower extremity. Electronically signed by: Aguila Grijalva M.D. Narrative 10/09/2017 2:05 PM CDT Procedure: US VEIN DUPLEX LOWER EXTREMITY LEFT LIMITED HISTORY: Left lower extremity pain and swelling. Possible deep venous thrombosis. TECHNIQUE: Left lower extremity venous duplex ultrasound scan that used graded compression of deep veins and duplex Doppler color flow scans from groins to popliteal fossa. FINDINGS: Common femoral, ??femoral, ??popliteal and visualized portions of the infrapopliteal veins show normal compressibility. Normal venous flow also documented. No intraluminal echogenic thrombus is seen in the visualized veins. Procedure Note Aguila Grijalva MD - 10/09/2017 Procedure: US VEIN DUPLEX LOWER EXTREMITY LEFT [...] thrombus is seen in the visualized veins. IMPRESSION: No femoropopliteal venous thrombosis seen in the left lower extremity. Electronically signed by: Aguila Grijalva M.D. Yeni Crespo SPECIAL EDUCATION PROFESSOR IMG US PROCEDURES Fi nal Result documented in this encounter Visit Diagnoses Not on filedocumented in this encounter Care Teams Gauntlet Pairer Relationship Specialty Start Date End Date Justen Gale MD [address] [address] PCP - General 10/09/17 Liu Jerez MD Consulting Physician Gastroenterology 07/28/17 [place] [address] [facility] [address] [place] [address] Consulting Physician Pulmonary Disease 08/03/17 documented as of this encounter
--- OUTSIDE RECORDS SUMMARY | 2024-04-26 04:28 | XMS_ITS | Encounter Summary ---
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 Do not exceed 8 tablets/day. 25 tablet 10/23/2017 8 HYDROcodone-acetami nophen (NORCO) 5-325 mg per [...] filedocumented in this encounter Care Teams Supervisor Cd Area Relationship Specialty Start Date End Date Justen Gale MD 2 [facility] [address] [place] [address] PCP - General 10/09/17 Liu Jerez MD Consulting Physician Gastroenterology 07/28/17 [place] [address] [facility] [address] [place] [address] Consulting Physician Pulmonary Disease 08/03/17 Khris Arthur MD [address] [facility] [address] [place] [address] Medical Oncologist/[place] Pumper Medical Oncology 10/23/17 [place] [address] [facility] [address] [place] [address] Surgeon Orthopedic Surgery 10/23/17 [place] [address] [address] Consulting Physician Pain Management 10/23/17 documented as of this encounter
--- OUTSIDE RECORDS SUMMARY | 2024-04-26 04:28 | XMS_ITS | Encounter Summary ---
Author Organization [facility] Healthcare Address [address] [place] [address] Care Team Providers Care Lead Warehouse Associate Name Role Phone Liu Jerez MD Unavailable [phone] Albert Corbin MD Unavailable [phone] Justen Gale MD Primary Care Provider [phone] Reason for Visit * Reason Comments Back Pain Encounter Details Date Type Department Care Team (Late st Contact Info) Description 10/09/2017 10:07 AM CDT - 10/09/2017 1:46 PM CDT Emergency [facility] Emergency Department [address] [place] [address] Karlos Lim MD [address] [place], [place] [id number] [place] [address] Sciatica of left side (Primary Dx) Discharge Disposition: Discharge to home or self care Social History Tobacco Use Types Packs/Day Years Used Date Smoking Tobacco: Former Smokeless Tobacco: Never Alcohol Use Standard Drinks/Week Comments No 0 (1 standard drink = 0.6 oz pur e alcohol) Comments No Sex and Gender Information Value Date Recorded Sex Assigned at Not on file 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 Gender Identity Not on file Sexual Orientation Not on file documented as of this encounter Last Filed Vital Signs Vital Sign Reading Time Taken Comments Blood Pressure 151/52 10/09/2017 10:04 AM CDT Pulse 96 10/09/2017 10:04 AM CDT Temperature 36.8 ??C (98.2 ??F) 10/09/2017 10:04 AM C DT Respiratory Rate 22 10/09/2017 10:04 AM CDT Oxygen Saturation 99% 10/09/2017 10:04 AM CDT Inhaled Oxygen Concentration - - Weight 120.2 kg (265 lb) 10/09/2017 10:04 AM CDT Height 154.9 cm (5' 1 ) 10/09/2017 10:04 AM CDT Body Mass Index 50.07 10/09/2017 10:04 AM CDT documented in this encounter Discharge Instructions * Attachments The following attachments cannot be sent through Care Everywhere. * Sciatica (AfterCare(R) Instructions(ER/ED)) ([place]) documented in this [...] (NORCO) 5-325 mg per tabletIndications: Pain Take 1-2 tablets by mouth every 4 (four) hours as needed for pain (1 tablet for mild to moderate pain or 2 tablets for severe pain). Do not exceed 8 tablets/day. 20 tablet 10/09/2017 8 predniSONE (DELTASONE) 20 mg tablet Take 2 tablets (40 mg total) by mouth daily for 4 days. 8 tablet 10/09/2017 8 documented in this encounter Discharge Disposition Disposition Code Departure Means Destination Discharge to home or self care documented in this encounter ED Notes * Yeni Crespo, CURTIS - 10/09/2017 10:36 AM CDT HPI Chief Complaint Patient presents with ??? Back Pain Pt complaining of pain to entire left leg that starts in the buttocks. Pt woke up with this pain last night. Pt states weakness and decreased sensation to left leg. Pt did not take any medication before arrival. Denies any injury. States she picked up her grandson yesterday but did not have any immediate pain. Pt has a hx of DVT but is on Xarelto. No other complaints at this time. Patient History Patient Active Problem List Diagnosis Date Noted ??? Chronic anticoagulation ??? Restless leg syndrome ??? Chest pressure 08/01/2017 ??? Positive blood culture 08/01/2017 ??? Hyponatremia 08/01/2017 ??? Diet-controlled diabetes mellitus ([facility]/HCC) 08/01/2017 ??? LUL (obstructive sleep apnea) 08/01/2017 ??? History of DVT (deep vein thrombosis) 08/01/2017 ??? History of pulmonary embolism 08/01/2017 ??? Essential hypertension ??? Generalized weakness 07/27/2017 ??? Dyspnea 07/27/2017 ??? Unintentional weight loss 07/27/2017 ??? Acute cystitis without hematuria 07/27/2017 ??? Nausea and vomiting 07/26/2017 ??? Pulmonary embolism ([facility]) 08/09/2016 Class: Chronic ??? Lymphedema of left [...] Musculoskeletal: Negative for arthralgias and back pain. + Left leg pain. Skin: Negative for color change and rash. Neurological: Positive for weakness (Left leg). Negative for seizures and syncope. Decreased sensation to left leg. All other systems reviewed and are negative. Physical Exam ED Triage Vitals [10/09/17 1004] Temp Pulse Resp BP SpO2 36.8 ??C (98.2 ??F) 96 22 151/52 99 % Temp src Heart Rate Source Patient Position BP Location FiO2 (%) Oral Monitor;Pulse Oximetry Sitting Right arm -- Physical Exam Constitutional: She appears well-developed and well-nourished. No distress. HENT: Head: Normocephalic and atraumatic. Eyes: Conjunctivae are normal. Neck: Neck supple. Cardiovascular: Normal rate and regular rhythm. No murmur heard. Pulmonary/Chest: Effort normal and breath sounds normal. No respiratory distress. Abdominal: Soft. There is no tenderness. Musculoskeletal: She exhibits no edema. Left calf tenderness. Positive kelsey's sign. Good pedal pulse. Sensation to left leg decreased. Left leg weaker than right. No vertebral or SI tenderness. Positive piriformis tenderness. Neurological: She is alert. Skin: Skin is warm and dry. Psychiatric: She has a normal mood and affect. Nursing note and vitals reviewed. MDM MDM Sciatica of left side Yeni Crespo NP 10/09/17 1332 Cosigned by Karlos Lim MD at 10/10/2017 6:48 AM CDT * Lety Ann RN - 10/09/2017 10:13 AM CDT Through the night this 62 yo started with left hip pain that goes all the way down her left leg. Lety Ann RN 10/09/17 1014 * Madison Chavez RN - 10/09/2017 10:05 AM CDT Hx back pain. Reports lifting grand baby yesterday he weighs a ton and woke up with back pain down left leg today. Ambulatory. documented in this encounter Plan of Treatment Not on file documented as of this encounter Procedures Procedure Name Priority Date/Time Associated Diagnosis Comments US VEIN DUPLEX LOWER EXTREMITY LEFT LIMITED ED 10/09/2017 1:[address] LUMBAR SPINE WO CONTRAST ED 10/09/2017 11:13 AM CDT documented in this encounter Results [...] signed by: Aguila Grijalva M.D. Yeni Crespo NP IMG US PROCEDURES Fi nal Result * CT Lumbar Spine WO Contrast (10/09/2017 11:13 AM CDT) Anatomical Region Laterality Modality Spine N/A Computed Tomogra phy 10/09/2017 12:3 9 PM CDT Impressions 10/09/2017 1:16 PM CDT TRANSITIONAL VERTEBRA AT LUMBOSACRAL JUNCTION LABELED L5 WITH SACRALIZATION AND RUDIMENTARY L5-S1 DISC. L2-L3 DISC BULGING, FACET ARTHROPATHY, EPIDURAL LIPOMATOSIS, MILD CENTRAL AND LATERAL RECESS STENOSIS. L3-L4 BULGING DISC WITH SMALL SUBARTICULAR AND FORAMINAL PROTRUSION WITH L3 ROOT ENCROACHMENT. L4-L5 DISC BULGING WITH MODERATE TO MARKED FACET ARTHROPATHY WORSE LEFT WITH LEFT LATERAL RECESS STENOSIS. NONOBSTRUCTING RIGHT NEPHROLITHIASIS. BILATERAL SI JOINT OSTEOARTHRITIS Electronically signed by: Maria Elena Shin M.D. Narrative 10/09/2017 1:16 PM CDT RESULT: Examination: ??CT LUMBAR SPINE WO CONTRAST Date: 10/09/2017 11:00 AM Clinical History: ?? Pain with decreased sensation in the left leg. Technique: Noncontrast CT lumbar spine with 2-D reformats views obtained. Comparison: CT lumbar spine 01/04/2017 Findings: A transitional vertebra is seen at the lumbosacral junction labeled L5 with sacralization. ??A rudimentary incomplete L5-S1 disc is present. Minimal grade 1 spondylolisthesis is again seen at L4-L5. ??Lumbar vertebral height alignment is otherwise maintained. ??Mild disc narrowing is seen at L2-L3. ??Disc heights otherwise maintained except for rudimentary L5-S1 disc. Mild to moderate right L3-L4 foraminal stenosis from disc osteophyte again noted. ??There is mild narrowing of ??the left L4-L5 foramen from foraminal disc, endplate and facet osteophyte unchanged. Bilateral SI joint sclerosis, vacuum phenomenon and osteophyte is again present with mild erosive change. Nonobstructing 3 mm right renal calculus is noted. L1-L2: The disc is unremarkable. ??This mild facet arthropathy but no central or lateral recess stenosis. L2-L3: Bulging disc with facet arthropathy and ligamentum flavum laxity is present. ??There is epidural lipomatosis ventral sac effacement with mild central and lateral recess stenosis. L3-L4: Degenerated bulging disc is seen with small right subarticular and foraminal protrusion with endplate osteophyte unchanged. ??Facet arthropathy is seen with ligamenta flavum laxity but there is no central or lateral recess stenosis. L4-L5: Bulging disc is seen with moderate to severe left moderate right facet arthropathy and ligamentum flavum laxity with encroachment on the left lateral recess. ??No central or right lateral recess stenosis is seen. L5-S1: A rudimentary incomplete disc is seen otherwise unremarkable. Procedure Note Maria Elena Shin MD - 10/09/2017 RESULT: Examination: CT LUMBAR SPINE WO CONTRAST Date: 10/09/2017 11:00 AM Clinical History: Pain with decreased sensation in the left leg. Technique: Noncontrast CT lumbar spine with 2-D reformats views obtained. Comparison: CT lumbar spine 01/04/2017 Findings: A transitional vertebra is seen at the lumbosacral junction labeled L5 with sacralization. A rudimentary incomplete L5-S1 disc is present. Minimal grade 1 spondylolisthesis is again [...] rudimentary incomplete disc is seen otherwise unremarkable. IMPRESSION: TRANSITIONAL VERTEBRA AT LUMBOSACRAL JUNCTION LABELED L5 WITH SACRALIZATION AND RUDIMENTARY L5-S1 DISC. L2-L3 DISC BULGING, FACET ARTHROPATHY, EPIDURAL LIPOMATOSIS, MILD CENTRAL AND LATERAL RECESS STENOSIS. L3-L4 BULGING DISC WITH SMALL SUBARTICULAR AND FORAMINAL PROTRUSION WITH L3 ROOT ENCROACHMENT. L4-L5 DISC BULGING WITH MODERATE TO MARKED FACET ARTHROPATHY WORSE LEFT WITH LEFT LATERAL RECESS STENOSIS. NONOBSTRUCTING RIGHT NEPHROLITHIASIS. BILATERAL SI JOINT OSTEOARTHRITIS Electronically signed by: Maria Elena Shin M.D. Yeni Crespo NP IMG CT PROCEDURES Fi nal Result documented in this encounter Visit Diagnoses Diagnosis Sciatica of left side- Primary documented in this encounter Administered Medications Inactive Administered Medications - up to 3 most recent administrations Medication Order MAR Action Action Date Dose Rate Site dexamethasone (DECADRON) injection 10 mg 10 mg, intramuscular, Once, On Mon10/09/17 at 1330, For 1 dose Given 10/09/2017 1:34 PM CDT 10 mg Left Ventrogluteal HYDROcodone-acetaminop hen (NORCO) 5-325 mg per tablet 2 tablet 2 tablet, oral, Once, On Mon10/09/17 at 1030, For 1 dose, Indications: PainIndications:Pain Given 10/09/2017 10:34 AM CDT 2 tablets documented in this encounter Active and Recently Administered Medications Times are shown in CDT. Scheduled Medication Order 10/07/2017 10/08/2017 10/09/2017 dexamethasone (DECADRON) injection 10 mg (COMPLETED) 10 mg, intramuscular, Once, On Mon10/09/17 at 1330, For 1 dose 1334 (Given - Provid er: Lety Ann, NURIS) HYDROcodone-acetaminophen (NORCO) 5-325 mg per tablet 2 tablet (COMPLETED) 2 tablet, oral, Once, On Mon10/09/17 at 1030, For 1 dose, Indications: Pain 1034 (Given - Provid er: Lety Ann, NURIS) documented in this encounter Care Teams Lead Warehouse Associate Relationship Specialty Start Date End Date Justen Gale MD [address] [address] PCP - General 10/09/17 Liu Jerez MD Consulting Physician Gastroenterology 07/28/17 [place] [address] [facility] [address] [place] [address] Consulting Physician Pulmonary Disease 08/03/17 documented as of this encounter
--- OUTSIDE RECORDS SUMMARY | 2024-04-26 04:28 | XMS_ITS | Encounter Summary ---
Author Organization [facility] Healthcare Address [address] [place] [address] Care Team Providers Care Console Attendant Name Role Phone Lavonne Hathaway MD Primary Care Provider [phone] Liu Jerez MD Unavailable Albert Corbin MD Unavailable [phone] Reason for Visit * Reason Comments Cough I been sick since last week, went to my doctor they said I have RSV and having alot of abdominal pain. Shortness of Breath Abdominal Pain Encounter Details Date Type Department Care Team (Late st Contact Info) Description 08/14/2017 10:47 PM CDT - 08/15/2017 5:49 AM CDT Emergency [facility] Emergency Department [address] [place] [address] [place] [id number] [place] [address] Acute bronchitis, unspecified organism (Primary Dx); Mild reactive airways disease, unspecified whether persistent; Costochondritis, acute Discharge Disposition: Discharge to home or self care Social History Tobacco Use Types Packs/Day Years Used Date Smoking Tobacco: Former Smokeless Tobacco: Never Alcohol Use Standard Drinks/Week Comments No 0 (1 standard drink = 0.6 oz pur e alcohol) Comments No Sex and Gender Information Value Date Recorded Sex Assigned at Not on file 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 Gender Identity Not on file Sexual Orientation Not on file documented as of this encounter Last Filed Vital Signs Vital Sign Reading Time Taken Comments Blood Pressure 97/64 08/15/2017 5:30 AM CDT Pulse 87 08/15/2017 5:30 AM CDT Temperature 36.7 ??C (98.1 ??F) 08/14/2017 7:43 PM CD T Respiratory Rate 21 08/15/2017 5:30 AM CDT Oxygen Saturation 96% 08/15/2017 5:30 AM CDT Inhaled Oxygen Concentration - - Weight 120.2 kg (265 lb) 08/14/2017 7:43 PM CDT Height 154.9 cm (5' 1 ) 08/14/2017 7:43 PM CDT Body Mass Index 50.07 08/14/2017 7:43 PM CDT documented in this encounter Discharge Instructions * Discharge Instructions* Devonte Cruz MD - 08/15/2017 4:39 AM CDT 1. Complete prednisone and antibiotics 2. Return to ER for increased shortness of breath or wheezing * Attachments The following attachments cannot be sent through Care Everywhere. * Acute Bronchitis (AfterCare(R) Instructions(ER/ED)) (Vietnamese) * Costochondritis (Electric Meter Repairer Apprentice) (Vietnamese) * Asthma (Electric Meter Repairer Apprentice) (Vietnamese) documented in this encounter Medications at Time [...] daily. 11/06/2017 documented as of this encounter Ordered Prescriptions Prescription Sig Dispense Quantity Refills Last Filled Start Date End Date HYDROcodone-acetam inophen (NORCO) 5-325 mg per tabletIndications: Pain Take 1-2 tablets by mouth every 6 (six) hours as needed for pain (1 tablet for mild to moderate pain or 2 tablets for severe pain). 12 tablet 08/15/2017 8 polyethylene glycol (MIRALAX) 17 gram/dose powder Mix 1 scoop (17 g) in 8 oz of water and drink daily. 527 g 08/15/2017 1 azithromycin (ZITHROMAX) 250 mg tablet Take 2 tablets the first day, then 1 tablet daily for 4 days 6 tablet 08/15/2017 8 albuterol HFA (PROVENTIL HFA,VENTOLIN HFA) 90 mcg/actuation inhalerIndications :Bronchospasm Prevention Inhale 2 puffs every 4 (four) hours as needed for wheezing. 1 Inhaler 08/15/2017 8 predniSONE (DELTASONE) 20 mg tabletIndications: Anti-inflammatory Take 2 tablets (40 mg total) by mouth daily for 5 days. 10 tablet 08/15/2017 8 documented in this encounter Discharge Disposition Disposition Code Departure Means Destination Discharge to home or self care documented in this encounter ED Notes * Devonte Cruz MD - 08/14/2017 11:29 PM CDT HPI Chief Complaint Patient presents with ??? Cough I been sick since last week, went to my doctor they said I have RSV and having alot of abdominal pain. ??? Shortness of Breath ??? Abdominal Pain (11:16 PM 08/14/2017) Patient is a 62 y/o female non-smoker with a history of DM, HTN, breast cancer, PE, DVT (most recently 9 months ago) on xarelto who presents to the ED via private auto c/o a non-productive cough and generalized myalgias onset 4 days ago. The patient visited an Urgent Care for these symptoms upon onset, but was prescribed cough medications but no antibiotics. Today, the patient also complains of increased cough and chest pain with coughing as well as SOB without improvement.She is coughin so hard that she is now having abdominal pain onset last night during a coughing fit, which has persisted since, and she about her hernia. She also reports SOB, chills, intermittent fev er (Tmax 100.1), mild ear pain, and chest pain that is exacerbated with coughing. She denies any rhinorrhea, recent travel, or any ill contacts. She has no history of asthma or COPD. [facility]. Per ChartReview, the patient was last admitted on 07/31/[address] Garza for atypical chest pain, nausea, and vomiting. During her admission, her CT abdomen pelvis was unremarkable, as was her gastric emptying study, chest X-ray, and chest CT. A cardiac echo revealed an ejection fracture of 60%. Her UTI was treated with Ciprofloxacin and discontinued upon discharge. She was instructed to follow up with Dr. Lavonne Hathaway, Dr. Jerez, and Dr. Albert Corbin. Patient History Patient Active Problem List Diagnosis [...] of Systems Constitutional: Positive for chills and fever. Negative for fatigue. HENT: Positive for ear pain. Negative for congestion, rhinorrhea, sneezing and sore throat. Respiratory: Positive for cough and shortness of breath. Negative for wheezing. Cardiovascular: Positive for chest pain. Negative for palpitations and leg swelling. Gastrointestinal: Positive for abdominal pain. Negative for constipation, diarrhea, nausea and vomiting. Genitourinary: Negative for dysuria and frequency. Musculoskeletal: Positive for myalgias (myalgias). Negative for arthralgias, back pain and neck pain. Skin: Negative for color change, pallor, rash and wound. Neurological: Negative for dizziness, syncope, weakness, light-headedness and headaches. All other systems reviewed and are negative. Physical Exam ED Triage Vitals [08/14/171942] Temp Pulse Resp BP SpO2 36.7 ??C (98.1 ??F) 103 24 136/66 97 % Temp src Heart Rate Source Patient Position BP Location FiO2 (%) Oral Monitor;Pulse Oximetry Sitting Right arm -- Physical Exam Constitutional: She is oriented to person, place, and time. She appears well- developed and well-nourished. No distress. obese HENT: Head: Normocephalic and atraumatic. Mild serous effusions bilaterally Eyes: Conjunctivae and EOM are normal. Pupils are equal, round, and reactive to light. Neck: Normal range of motion. Neck supple. No JVD present. No thyromegaly present. Cardiovascular: Normal rate, regular rhythm, normal heart sounds and intact distal pulses. Exam reveals no gallop and no friction rub. No murmur heard. Mild tachycardia Pulmonary/Chest: Effort normal and breath sounds normal. No respiratory distress. She has no wheezes. She has no rales. Wheezing noted , expiratory in right anterior base Abdominal: Soft. Bowel sounds are normal. She exhibits no distension and no mass. There is no tenderness. There is no rebound and no guarding. Mild tenderness in right lower abdomen Musculoskeletal: Normal range of motion. She exhibits [...] vitals reviewed. ED Course & MDM BP 93/67 Pulse 90 Temp 36.7 ??C (98.1 ??F) (Oral) Resp 22 Ht 154.9 cm (5' 1 ) Wt 120.2 kg(265 lb) SpO2 92% BMI 50.07 kg/m?? Labs Reviewed URINALYSIS AND REFLEX TO MICROSCOPIC AND CULTURE - Abnormal Result Value Color, ur Yellow Clarity, ur Clear Specific gravity, ur 1.023 pH, urine 5.0 Protein, ur Negative Glucose, ur Negative ur ketones Negative Bilirubin, ur Negative ur blood 2+ (*) ur urobilinogen <2.0 ur nitrite Negative Leukocyte esterase, ur Negative Ascorbic acid, ur Negative Narrative: CBC WITH AUTO DIFFERENTIAL - Abnormal WBC 12.3 (*) RBC 4.53 Hgb 12.2 Hct 39.7 MCV 87.6 MCH 26.9 (*) MCHC 30.7 (*) RDW CV 15.2 (*) RDW SD 48.6 (*) Platelets 371 MPV 9.8 NRBC Abs 0.00 Narrative: COMPREHENSIVE METABOLIC PANEL - Abnormal Sodium 133 (*) Potassium 4.2 CO2 24 BUN 18 Glucose 247 (*) Creatinine 0.81 Calcium 9.4 Chloride 101 Albumin 3.3 AST 21 ALT 22 Alk phos 74 Bilirubin 0.40 Protein, pl 8.3 Anion Gap 12 Narrative: DIFFERENTIAL AUTO - Abnormal Neutrophil absolute 7.6 (*) Immature granulocyte absolute 0.1 Lymphocytes absolute 3.0 Monocyte absolute 1.1 (*) Eosinophils absolute 0.5 Basophils, abs 0.0 Neutrophils 62.0 Immature granulocytes 0.6 Lymphocytes 24.5 Monocytes 8.8 Eosinophils 3.7 Basophils 0.4 Narrative: URINALYSIS, MICROSCOPIC ONLY - Abnormal WBC, ur 0-5 RBC, ur 0-5 Epithelial cells, squamous, ur 1-5 Mucus, ur Present (*) Narrative: TROPONIN I Troponin I <0.03 Narrative: EGFR GFR 78 Narrative: B-TYPE NATRIURETIC PEPTIDE B-Type Natriuretic Peptide (BNP) 11 Narrative: XR Chest 1 Vw Portable Final Result Early left heart failure.. Electronically signed by: Manohar Quigley M.D. XR Chest 1 Vw (Results Pending) CT Abdomen Pelvis WO Contrast (Results Pending) ED Course as of Aug 15 0508 Tue Aug 15, 2017 0431 No acute findings. No hemorrhage. No kidney stone. CT Abdomen Pelvis WO Contrast [BM] 0110 Rechecked patient. The patient is feeling better. [BM] Mon Aug 14, 2017 2343 The patient reports mild relief from her breathing treatment given here in the ED. [BM] ED Course User Index [BM] Demarcus Campoverde [facility] Number of Diagnoses or Management Options Acute bronchitis, unspecified organism: established and worsening Costochondritis, acute: new and requires workup Mild reactive airways disease, unspecified whether persistent: new and requires workup Diagnosis management comments: Pt with acute bronchitis and costochondritis, improved with nebulizer treatments and steroids. Abdominal pain due to pain / strain with coughing, no acute intraabdominal process seen. Amount and/or Complexity of Data Reviewed Clinical lab tests: reviewed Tests in the radiology section of CPT??: reviewed Independent visualization of images, tracings, or specimens: yes Risk of Complications, Morbidity, and/or Mortality Presenting problems: high Diagnostic procedures: moderate Management options: moderate Patient Progress Patient progress: stable Acute bronchitis, unspecified organism Mild reactive airways disease, unspecified whether persistent Costochondritis, acute Demarcus Gilles scribed for Devonte Cruz MD in the doctor's presence. I electronically signed this note at 11:29 PM on 08/14/2017. I, Dr. Cruz, have personally performed the services described in the documentation , reviewedthe documentation, as recorded by the scribe in my presence, and it accurately and completely records my words and actions. Devonte Cruz MD 08/15/17 8181 documented in this encounter Miscellaneous Notes * ED Procedure Note - Devonte Cruz MD - 08/14/2017 11:31 PM CDT Associated Order(s): ECG 12-LEAD Procedure ECG 12 lead Date/Time: 08/14/2017 11:31 PM Performed by: DEVONTE CRUZ Authorized by: DEVONTE CRUZ Rate: ECG rate: 97 ECG rate assessment: normal Rhythm: Rhythm: sinus rhythm Ectopy: Ectopy: none QRS: QRS axis: Normal QRS intervals: Normal Conduction: Conduction: normal ST segments: ST segments: Non-specific T waves: T waves: non-specific Interpretation: Interpretation: non-specific Devonte Cruz MD 08/14/17 0723 documented in this encounter Plan of Treatment Not on file documented as of this encounter Procedures Procedure Name Priority Date/Time Associated Diagnosis Comments CT ABDOMEN PELVIS WO CONTRAST ED 08/15/2017 4:18 AM CDT URINALYSIS AND REFLEX TO MICROSCOPIC AND CULTURE STAT 08/15/2017 2:30 AM CDT URINALYSIS, MICROSCOPIC ONLY STAT 08/15/2017 2:30 AM CDT XR CHEST 1 VIEW ED 08/15/2017 12:42 AM CDT DISCHARGE LABORATORY CUMULATIVE REPORT 08/15/2017 12:00 AM CDT EGFR STAT 08/14/2017 10:06 PM CDT DIFFERENTIAL AUTO STAT 08/14/2017 10: 06 PM CDT CBC WITH AUTO DIFFERENTIAL STAT 08/14/2017 10:06 PM CDT TROPONIN I STAT 08/14/2017 10:06 PM CDT B-TYPE NATRIURETIC PEPTIDE Routine 08/14/2017 10:06 PM CDT COMPREHENSIVE METABOLIC PANEL STAT 08/14/2017 10:06 PM CDT XR CHEST 1 VIEW ED 08/14/2017 8:11 PM CDT ECG 12-LEAD Routine 08/14/2017 7:49 PM CDT documented in this encounter Results * CT Abdomen Pelvis WO Contrast (08/15/2017 4:18 AM CDT) Anatomical Region Laterality Modality Body N/A Computed Tomogra phy Impressions 08/15/2017 7:34 AM CDT POSTSURGICAL CHANGES OF HERNIA REPAIR IN THE ABDOMEN. ??NONOBSTRUCTIVE RIGHT RENAL CALCULUS. ??NO ACUTE FINDINGS. ??RESULTS CALLED BY RAISA Electronically signed by: Manohar Quigley M.D. Narrative 08/15/2017 7:34 AM CDT RESULT: EXAMINATION: CT ABDOMEN PELVIS WO CONTRAST dated 08/15/2017 3:45 AM HISTORY: 62-year-old woman low abdominal pain history of hernia repair with pain near the surgical site, pain beginning since coughing yesterday. History of diabetes, cholecystectomy. ??Hernia repair with mesh. History of breast carcinoma. ??History of hypertension, DVT pulmonary embolus TECHNIQUE: Noncontrasted study is performed with multiplanar reconstructions FINDINGS: Comparison is made with the study of 08/03/2017. ??R Developer radiograph demonstrates no acute findings. ??Surgical changes in the pelvis. Lung bases are free of infiltrates or fluid. ??Heart size. ??Liver size normal. ??No mass effect or biliary dilatation. ??Spleen within normal limits. ??Normal adrenal glands and pancreas. ??Kidneys demonstrate no hydronephrosis or mass effect. ??There is a 4 mm calculus at the upper pole the right kidney nonobstructive appearance unchanged since previous. ??No additional calculi. ??No free fluid or free air is seen. Postsurgical changes of hernia repair in the anterior abdominal without recurrence. ??Mesh in place. ??Age-appropriate uterus. ??Urinary bladder is distended. ??Coronal images demonstrate normal bowel gas pattern without obstruction with a moderate amount of stool seen throughout the colon. ??Lumbar spine demonstrates minimal spondylolisthesis L4-L5 Procedure Note Manohar Quigley MD - 08/15/2017 RESULT: EXAMINATION: CT ABDOMEN PELVIS WO CONTRAST dated 08/15/2017 3:45 AM HISTORY: 62-year-old woman low abdominal pain history of hernia repair with pain near the surgical site, pain beginning since coughing yesterday. History of diabetes, cholecystectomy. Hernia repair with mesh. History of breast carcinoma. History of hypertension, DVT pulmonary embolus TECHNIQUE: Noncontrasted study is performed with multiplanar reconstructions FINDINGS: Comparison is made with the study of 08/03/2017. R Developer radiograph demonstrates no acute findings. Surgical changes in the pelvis. Lung bases are free of infiltrates or fluid. Heart size. Liver size normal. No mass effect or biliary dilatation. Spleen within normal limits. Normal adrenal glands and pancreas. Kidneys demonstrate no hydronephrosis or mass effect. There is a 4 mm calculus at the upper pole the right kidney nonobstructive appearance unchanged since previous. No additional calculi. No free fluid or free air is seen. Postsurgical changes of hernia repair in the anterior abdominal without recurrence. Mesh in place. Age-appropriate uterus. Urinary bladder is distended. Coronal images demonstrate normal bowel gas pattern without obstruction with a moderate amount of stool seen throughout the colon. Lumbar spine demonstrates minimal spondylolisthesis L4-L5 IMPRESSION: POSTSURGICAL CHANGES OF HERNIA REPAIR IN THE ABDOMEN. NONOBSTRUCTIVE RIGHT RENAL CALCULUS. NO ACUTE FINDINGS. RESULTS CALLED BY [employer] Electronically signed by: Manohar Quigley M.D. Devonte Cruz MD IMG CT PROCEDURES Deann l Result * (ABNORMAL) Urinalysis, microscopic only (08/15/2017 2:30 AM CDT) WBC, ur 0-5 0 - 5 /HPF [facility] RBC, ur 0-5 0 - 5 /HPF [facility] Epithelial cells, squamous, ur 1-5 0 - 5 /HPF [facility] CH Mucous, ur Present(A) C[facility] CH Urine 08/15/2017 2:30 AM CDT 08/15/2017 2:51 AM CDT Narrative [facility] CH - 08/15/2017 3:11 AM CDT Devonte Cruz MD LAB URINE ORDERABLES F inal Result [facility] [id number] Department [place] [address] * (ABNORMAL) Urinalysis reflex to microscopic and culture Urine (08/15/2017 2:30 AM CDT) Color, ur Yellow Yellow [facility] CH Clarity, ur Clear Clear [facility] CH Specific gravity, ur 1.023 1.010 - 1.025 CERN[facility] CH pH, urine 5.0 [facility] CH Protein, ur ql Negative Negative [facility] CH Glucose, ur ql Negative Negative [facility] CH Ketones, ur Negative Negative [facility] CH Bilirubin, ur Negative Negative [facility] CH Blood, ur 2+(A) Negative [facility] CH Urobilinogen, ur <2.0 <2.0 mg/dL [facility] CH Nitrite, ur Negative Negative [facility] CH Leukocyte esterase, ur Negative Negative [facility] CH Ascorbic acid, ur Negative Negative [facility] CH Urine 08/15/2017 2:30 AM CDT 08/15/2017 2:51 AM CDT Narrative [facility] CH - 08/15/2017 3:11 AM CDT Devonte Cruz MD LAB MICROBIOLOGY - GEN ERAL ORDERABLES Final Result [facility] [address] [place] [address] * XR Chest 1 Vw (08/15/2017 12:42 AM CDT) Anatomical Region Laterality Modality Body, Chest N/A Computed Radiogr aphy Impressions 08/15/2017 8:14 AM CDT NO ACUTE PULMONARY CHANGE. Electronically signed by: Aguila Grijalva M.D. Narrative 08/15/2017 8:14 AM CDT RESULT: HISTORY: Cough [...] IMG XR PROCEDURES Deann l Result * DISCHARGE LABORATORY CUMULATIVE REPORT (08/15/2017 12:00 AM CDT) Narrative 08/15/2017 12:00 AM CDT Ordered by an unspecified provider. Historical Provider LAB BLOOD ORDERABLES Deann l Result * B-type natriuretic peptide (08/14/2017 10:06 PM CDT) B-Type Natriuretic Peptide (BNP) 11 0 - 100 pg/mL MARY JANE ARNOLD Blood specimen (specimen) 08/14/2017 10:06 PM CDT 08/14/2017 11:32 PM CDT Narrative MARY JANE - 08/15/2017 12:53 AM CDT Devonte Cruz MD LAB BLOOD ORDERABLES F inal Result [facility] [address] [place] [address] * eGFR (08/14/2017 10:06 PM CDT) [facility] eGFR 78 mL/min/1.7 3 m2 MARY JANE [...] was last reviewed 2015. Blood specimen (specimen) 08/14/2017 10:06 PM CDT 08/14/2017 10:30 PM CDT Narrative MARY JANE ARNOLD - 08/14/2017 10:51 PM CDT us Devonte Cruz MD LAB BLOOD ORDERABLES F inal Result [facility] [address] [place] [address] * (ABNORMAL) Differential, auto (08/14/2017 10:06 PM CDT) Neutrophil abs 7.6(H) 1.7 - 6.5 K/cumm [facility] Imm gran abs 0.1 0.0 - 0.1 K/cumm [facility] Lymphocyte abs 3.0 0.8 - 3.3 K/cumm [facility] Monocyte abs 1.1(H) 0.2 - 0.8 K/cumm [facility] Eosinophil abs 0.5 0.0 - 0.5 K/cumm [facility] Basophil abs 0.0 0.0 - 0.1 K/cumm [facility] Neutrophil pct 62.0 % [facility] Comment: Interpretive Data Percent cell count reference ranges are not reported, since discordance with absolute values may lead to misinterpretation of CBC data. Current Interpretive Data was last revised on 2017. Imm gran pct 0.6 % [facility] Comment: Interpretive Data Percent cell count reference ranges are not reported, since discordance with absolute values may lead to misinterpretation of CBC data. Current Interpretive Data was last revised on 2017. Lymphocyte pct 24.5 % [facility] Comment: Interpretive Data Percent cell count reference ranges are not reported, since discordance with absolute values may lead to misinterpretation of CBC data. Current Interpretive Data was last revised on 2017. Monocyte pct 8.8 % [facility] Comment: Interpretive Data Percent cell count reference ranges are not reported, since discordance with absolute values may lead to misinterpretation of CBC data. Current Interpretive Data was last revised on 2017. Eosinophil pct 3.7 % [facility] Comment: Interpretive Data Percent cell count reference ranges are not reported, since discordance with absolute values may lead to misinterpretation of CBC data. Current Interpretive Data was last revised on 2017. Basophil pct 0.4 % [facility] Comment: Interpretive Data Percent cell count reference ranges are not reported, since discordance with absolute values may lead to misinterpretation of CBC data. Current Interpretive Data was last revised on 2017. Blood specimen (specimen) 08/14/2017 10:06 PM CDT 08/14/2017 10:30 PM CDT Narrative MARY JANE - 08/14/2017 10:54 PM CDT Devonte Cruz MD LAB BLOOD ORDERABLES F inal Result Performing Organization Address [facility] Co de Phone Number MARY JANE ARNOLD [id number] [place] [address] * Troponin I (08/14/2017 10:06 PM CDT) [facility] Troponin I <0.03 0.00 - 0.14 ng/mL [facility] Comment: Interpretive Data Normal: ? 0.00 - 0.14 ng/mL Indeterminate: ?0.15 - 0.50 ng/mL MT / Cardiac Muscle Damage: ? >0.50 ng/mL Current interpretive data was last reviewed 2015 Blood specimen (specimen) 08/14/2017 10:06 PM CDT 08/14/2017 10:30 PM CDT Narrative MARY JANE - 08/14/2017 11:06 PM CDT Devonte Cruz MD LAB BLOOD ORDERABLES F inal Result Performing Organization Address [facility] Co de Phone Number [facility] [id number] [place] [address] * (ABNORMAL) Comprehensive metabolic panel (08/14/2017 10:06 PM CDT) Pathologist [facility] Sodium 133(L) 135 - 145 mmol/L [facility] Potassium, pl 4.2 3.5 - 5.1 mmol/L [facility] CO2 24 22 - 32 mmol/L [facility] BUN 18 8 - 24 mg/dL [facility] Glucose 247(H) 70 - 199 mg/dL [facility] Comment: Interpretive [...] interpretive data was last revised 2017. Creatinine 0.81 0.60 - 1.30 mg/dL [facility] Calcium 9.4 8.4 - 10.5 mg/dL [facility] Chloride 101 100 - 114 mmol/L [facility] Albumin 3.3 3.2 - 4.8 g/dL [facility] AST 21 7 - 40 Units/L [facility] ALT 22 1 - 45 Units/L [facility] Alk phos 74 30 - 110 Units/L [facility] Bilirubin, total 0.40 0.10 - 1.30 mg/dL [facility] Protein, pl 8.3 6.0 - 8.3 g/dL [facility] Anion gap 12 8 - 16 mmol/L [facility] Blood specimen (specimen) 08/14/2017 10:06 PM CDT 08/14/2017 10:30 PM CDT Narrative [facility] - 08/14/2017 10:51 PM CDT Devonte Cruz MD LAB BLOOD ORDERABLES F inal Result [facility] [address] [place] [address] * (ABNORMAL) CBC with auto differential (08/14/2017 10:06 PM CDT) WBC 12.3(H) 3.8 - 9.9 K/cumm [facility] RBC 4.53 3.90 - 5.20 M/cumm [facility] Hgb 12.2 11.9 - 15.5 g/dL [facility] Hct 39.7 35.6 - 45.5 % [facility] MCV 87.6 81.3 - 96.4 fL [facility] MCH 26.9(L) 27.1 - 33.3 pg [facility] MCHC 30.7(L) 32.3 - 35.7 g/dL [facility] RDW CV 15.2(H) 11.1 - 14.9 % [facility] RDW SD 48.6(H) 35.7 - 48.1 fL [facility] Plt 371 150 - 400 K/cumm [facility] MPV 9.8 9.1 - 12.3 fL [facility] NRBC abs 0.00 0.00 - 0.01 K/cumm [facility] Blood specimen (specimen) 08/14/2017 10:06 PM CDT 08/14/2017 10:30 PM CDT Narrative [facility] - 08/14/2017 10:54 PM CDT us Devonte Cruz MD LAB BLOOD ORDERABLES F inal Result [facility] [id number] Department [place] [address] * XR Chest 1 Vw Portable (08/14/2017 8:11 PM CDT) Anatomical Region Laterality Modality Body, Chest N/A Computed Radiogr aphy Impressions 08/14/2017 8:21 PM CDT Early left heart failure.. Electronically signed by: Manohar Quigley M.D. Narrative 08/14/2017 8:21 PM CDT RESULT: EXAMINATION: XR CHEST 1 VIEW DATE: 08/14/2017 7:55 PM HISTORY: 62-year-old woman shortness of breath wheezing. ??History of diabetes hypertension DVT with pulmonary embolus FINDINGS: Compared with study of 08/01/2017, normal heart size. ??No confluent infiltrates or fluid. ??Mild prominence of the pulmonary vascularity suggesting early pulmonary vascular congestion Procedure Note Manohar Quigley MD - 08/14/2017 RESULT: EXAMINATION: XR CHEST 1 VIEW DATE: 08/14/2017 7:55 PM HISTORY: 62-year-old woman shortness of breath wheezing. History of diabetes hypertension DVT with pulmonary embolus FINDINGS: Compared with study of 08/01/2017, normal heart size. No confluent infiltrates or fluid. Mild prominence of the pulmonary vascularity suggesting early pulmonary vascular congestion IMPRESSION: Early left heart failure.. Electronically signed by: Manohar Quigley M.D. us Frankie Haider MD IMG XR PROCEDURES Final Resu lt * ECG 12 lead (08/14/2017 7:49 PM CDT) Patient age 62 years [facility] Interpretation Text SINUS RHYTHM WITH SHORT VA INTERVALBORDERLINE ECGPREVIOUS TRACIN08/01/2017 12.34No significant changes noted [facility] Comment:Physician Interprete r Dr. Opal Koo M.D. Ventricular Rate EKG/Min 97 /min [facility] P Wave Duration 96 ms [facility] QRS-Interval (MSEC) 77 ms [facility] VA-Interval (MSEC) 119 ms [facility] QT Interval 330 ms [facility] QTc 394 ms [facility] QTC Interval ms [facility] P [place] 38 deg [facility] QRS [place] 14 deg [facility] T [place] 55 deg [facility] 08/14/2017 7:49 PM CDT Devonte Cruz MD ECG ORDERABLES Final Result [facility] documented in this encounter Visit Diagnoses Diagnosis Acute bronchitis, unspecified organism- Primary Mild reactive airways disease, unspecified whether persistent Costochondritis, acute documented in this encounter Administered Medications Inactive Administered Medications - up to 3 most recent administrations Medication Order MAR Action Action Date Dose Rate Site albuterol (PROVENTIL,VENTOLIN) 2.5 mg/0.5 mL nebulizer solution 2.5 mg 2.5 mg, nebulization, Once (corporate responsibility officer), On 08/14/17 at 1945, For 1 dose, Indications: COPD ExacerbationIndications:COPD Exacerbation Given 08/14/2017 8:03 PM CDT 2.5 mg azithromycin (ZITHROMAX) tablet 500 mg 500 mg, oral, Once, On Mon08/15/17 at 0115, For 1 dose, Indications: Upper Respiratory/HEENT InfectionIndications:Upper Respiratory/HEENT Infection Given 08/15/2017 1:25 AM CDT 500 mg HYDROcodone-acetaminophen (NORCO) 5-325 mg per tablet 1 tablet 1 tablet, oral, Once, On Mon08/15/17 at 0145, For 1 dose, Indications: PainIndications:Pain Given 08/15/2017 1:45 AM CDT 1 tablet ipratropium-albuterol (DUO-NEB) 0.5-2.5 mg/3 mL nebulizer solution 3 mL 3 mL, nebulization, Every 4 hours PRN (corporate responsibility officer), wheezing, shortness of breath, Starting on Mon08/14/17 at 2003, Indications: COPD ExacerbationIndications:COPD Exacerbation ipratropium-albuterol (DUO-NEB) 0.5-2.5 mg/3 mL nebulizer solution 3 mL 3 mL, nebulization, Once, On Mon08/14/17 at 2330, For 1 dose, MAY REPEAT 3 DOSES Q 10 MINUTES NEEDED FOR WHEEZING, Indications: Chronic Obstructive Pulmonary Disease with BronchospasmsIndications:Chr onic Obstructive Pulmonary Disease with Bronchospasms Given 08/14/2017 11:38 PM CDT 3 mL methylPREDNISolone sodium succinate (SOLU-medrol) preservative free injection 60 mg 60 mg, intravenous, Once, On Mon08/14/17 at 2330, For 1 dose Given 08/14/2017 11:43 PM CDT 60 mg morphine injection 4 mg 4 mg, intravenous, Once, On Mon08/14/17 at 2330, For 1 dose Given 08/14/2017 11:45 PM CDT 4 mg sodium chloride 0.9% bolus 1,000 mL 1,000 mL, intravenous, at 1,000 mL/hr, Administer over 1 Hours, Once, On Mon08/15/17 at 0115, For 1 dose New Bag 08/15/2017 1:24 AM CDT 1,000 mL 1000 mL/hr documented in this encounter Active and Recently Administered Medications Times are shown in CDT. Scheduled Medication Order 08/13/2017 08/14/2017 08/15/2017 albuterol (PROVENTIL,VENTOLIN) 2.5 mg/0.5 mL nebulizer solution 2.5 mg (COMPLETED) 2.5 mg, nebulization, Once (corporate responsibility officer), On Mon08/14/17 at 1945, For 1 dose, Indications: COPD Exacerbation 2002 (Given - Provider: Cem Lucero, BEVEL POLISHER) azithromycin (ZITHROMAX) tablet 500 mg (COMPLETED) 500 mg, oral, Once, On Mon08/15/17 at 0115, For 1 dose, Indications: Upper Respiratory/HEENT Infection 0125 (Given - Provid er: Frazaneh Birmingham RN) HYDROcodone-acetaminophen (NORCO) 5-325 mg per tablet 1 tablet (COMPLETED) 1 tablet, oral, Once, On Mon08/15/17 at 0145, For 1 dose, Indications: Pain 014 (Given - Provid er: Farzaneh Birmingham RN) ipratropium-albuterol (DUO-NEB) 0.5-2.5 mg/3 mL nebulizer solution 3 mL (COMPLETED) 3 mL, nebulization, Once, On Mon08/14/17 at 2330, For 1 dose, MAY REPEAT 3 DOSES Q 10 MINUTES NEEDED FOR WHEEZING, Indications: Chronic Obstructive Pulmonary Disease with Bronchospasms 233 (Given - Provider: Cem Lucero, BEVEL POLISHER) methylPREDNISolone sodium succinate (SOLU-medrol) preservative free injection 60 mg (COMPLETED) 60 mg, intravenous, Once, On Mon08/14/17 at 2330, For 1 dose 2343 (Given - Provider: Farzaneh Birmingham RN) morphine injection 4 mg (COMPLETED) 4 mg, intravenous, Once, On Mon08/14/17 at 2330, For 1 dose 2345 (Given - Provider: Farzaneh Birmingham RN) sodium chloride 0.9% bolus 1,000 mL (COMPLETED) 1,000 mL, intravenous, at 1,000 mL/hr, Administer over 1 Hours, Once, On Mon08/15/17 at 0115, For 1 dose 0124 (New Bag - Provider: Farzaneh Birmingham RN)0247 (Stopped - Provider: Farzaneh Birmingham RN) PRN Medication Order 08/13/2017 08/14/201708/15/2017 ipratropium-albuterol (DUO-NEB) 0.5-2.5 mg/3 mL nebulizer solution 3 mL 3 mL, nebulization, Every 4 hours PRN (corporate responsibility officer), wheezing, shortness of breath, Starting on 08/14/17 at 2003, Indications: COPD Exacerbation documented in this encounter Orders Medications Ordered That Tyler ht Not Have Been Administered Count Last Ordered Date First Ordered Date ipratropium-albuterol (DUO-N EB) 0.5-2.5 mg/3 mL nebulizer solution 3 mL 1 08/14/2017 documented in this encounter Care Teams Console Attendant Relationship Specialty Start Date End Date Lavonne Hathaway MD [facility] [place] [address] PCP - General 08/16/16 08/17/17 Liu Jerez MD [facility] [place] [address] Consulting Physician Gastroenterology 07/28/17 [place] [id number] [facility] [id number] [place] [address] Consulting Physician Pulmonary Disease 08/03/17 documented as of this encounter
--- OUTSIDE RECORDS SUMMARY | 2024-04-26 04:28 | XMS_ITS | Encounter Summary ---
Author Organization [facility] Healthcare Address [address] [place] [address] Care Team Providers Care Sociology Teacher Name Role Phone Liu Jerez MD Unavailable [phone] Albert Corbin MD Unavailable Justen Gale MD Primary Care Provider Khris Arthur MD Unavailable [phone] Ko Melendez MD Unavailable John Paul Moyer MD Unavailable Reason for Visit * Reason Comments Back Pain Encounter Details Date Type Department Care Team (Late st Contact Info) Description 10/31/2017 10:00 AM CDT - 10/31/2017 10:15 AM CDT Surgery [facility] [address] [place] [address] John Paul Moyer MD [address] [place] [address] [address] [place] [address] Injection - Epidural Steroid - Lumbar Surgery Details Date/Time Status Location OR Service Patient Class Case Class Case Type Trauma Case? 10/31/2017 10:00 AM Posted [facility] Procedure Center RM 2 Pain Management Inpatient Elective Panel 1 Procedure LRB Anes Op Region Wound Class Comments Injection - Epidural Steroid - Lumbar N/A Local Sp ine Lumbar Class I - Clean Surgeon Surgeon Role Service Panel John Paul Moyer MD Primary Pain Managem ent 1 documented in this encounter Social History Tobacco Use Types Packs/Day Years Used Date Smoking Tobacco: Former Smokeless Tobacco: Never Comments:remote tobacco use Alcohol Use Standard Drinks/Week Comments No 0 (1 standard drink = 0.6 oz pur e alcohol) Comments No Sex and Gender Information Value Date Recorded Sex Assigned at Not on file 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 Gender Identity Not on file Sexual Orientation Not on file documented as of this encounter Last Filed Vital Signs Vital Sign Reading Time Taken Comments Blood Pressure 101/61 10/31/2017 8:00 AM CDT Pulse 75 10/31/2017 8:00 AM CDT Temperature 36.5 ??C (97.7 ??F) 10/31/2017 8:00 AM CD T Respiratory Rate 20 10/31/2017 8:00 AM CDT Oxygen Saturation 94% 10/31/2017 8:00 AM CDT Inhaled Oxygen Concentration - - Weight 129.1 kg (284 lb 9.8 oz) 10/26/2017 4:41 AM CDT Height 154.9 cm (5' 0.98 ) 10/26/2017 1 1:06 AM CDT Body Mass Index 53.81 10/26/2017 4:41 AM CDT documented in this encounter Discharge Summaries * Eol Aceves MD - 10/31/2017 2:19 PM CDT Inpatient Discharge Summary Admitting Provider: Remi Garza MD Discharge Provider: Elo Aceves MD Primary Care Physician at Discharge: Justen Gael MD [phone] Date Of Service: 10/31/2017 Admission Date: 10/25/2017 [...] seen by Dr. Melendez, open MRI at [facility] was arranged which showed mild to moderate [...] Gale if too high or too low. hematology nurse educator was consulted during [facility] stay. Test Results Pending at Discharge: [...] primary care provider Justen Gale MD 2 [facility] [address] [facility] [address] [place] [address] [facility] [address] [facility] [address] follow up with pain management within a [place] [address] [facility] [address] [facility] [address] follow up with ortho spine as needed Khris Atrhur MD [address] [facility] [address] follow up with oncology as scheduled Discharge Time:Greater than 30 minutes [facility] [phone] 10/31/2017 2:19 PM documented in this encounter [...] the Pain Management Center i mmediately at [phone]. After hours, contact the [facility] Winch Stripper at [phone] and she will reach your physician for [...] high dose 7-5, continue accucheks, A1C 9.2. hematology nurse educator consulted. Pt states Dr. Gale added [...] 10/29/2017 6:22 PM CDT Daily Progress Karly Marques Admit Date: 10/25/2017 9:20 PM Today's Date: [...] Sitting Pulse: 78 73 71 76 Resp: Temp: 36.7 ??C (98 ??F) 36.7 ??C [...] changes. 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 ?? Total Fluid Estimated Needs: 1936.5 Fluid [...] Class III 3 Day I/O Summary 10/27 1899 - 10/29 0659 In: 480 [P.O.:480] Out: [...] arthropathy. There is no neuroforaminal stenosis. There isno spinal canal stenosis. L2-L3: Leftward disc bulge. [...] 7-5, continue accucheks, A1C 9.2. Will consult extension educator and digester capper, nursing supervision of insulin administration and education. ?? 4. LUL: continue CPAP ?? 5. H/o DVT/PE: not within past 30 days. ? 6. History of breast cancer: Double mastectomy and lymph node removal in 2015. ??Other than her oral Aromasin she has not been on any chemo or radiation in the past six months. ??F/u oncology outpatient. 7. HTN monitor on current regimen. ?? dvt ppx: lovenox subcut ?? Full Code * Sonali Liu, PT - 10/28/2017 12:08 PM CDT Physical [...] / SEX: 62 y.o. / female [id number] 1955 DATE: 10/28/17 TIME IN: 1025 [...] AMBULATION DEVICE USED PRIOR TO ADMISSION: cane PRN, TEO occasionally COMMUNITY ACCESS / DRIVING: daughter SOCIAL ROLES / HOBBIES:enjoys painting, crafts, reading, and planting PATIENT / FAMILY GOAL(S): get back to better quality of life COGNITION / ORIENTATION: PATIENT ORIENTED TO:x4 FOLLOWING COMMANDS: L COMMUNICATION: [facility] COGNITIVE SCREENING: WF UE ROM / STRENGTH / COORDINATION: AROM - RIGHT: WFL STRENGTH - RIGHT: 4+/5 throughout except shoulder flex/ext, ab/ad, elbow flex/exten 3/5 AROM - LEFT:WFL STRENGTH - LEFT:4+/5 throughout except shoulder flex/ext, abd/add, elbow flex/exten 3/5 HAND DOMINANCE:right ON AIR DIRECTOR STRENGTH (RIGHT): good ON AIR DIRECTOR STRENGTH (LEFT): good RIGHT COORDINATION: intact LEFT COORDINATION: intact BALANCE: STATIC SITTING: good unsupported DYNAMIC SITTING: good- unsupported STATIC STANDING: good unsupported DYNAMIC STANDING: good- unsupported MOBILITY / TRANSFERS: TRANSFER(S): EOB to bedside chair CGA using cane, bedside chair to bed using cane CGA, would benefit from WW vs cane LIVING SKILLS: UE DRESSING (OVERALL ASSIST LEVEL):SBA {COMPONENTS PERFORMANCE: 07/26 ITEM: brisket puller shirt LOCATION:sitting EOB LE DRESSING (OVERALL ASSIST LEVEL):max A COMPONENTS PERFORMANCE: 2/5, don bilateral footies with max A, thread RLE in pants SBA, LLE thread with min A, brisket puller hips CGA for steadying ITEM:footies, elastic pants LOCATION: sitting/standing EOB THERAPY PLAN: REHAB POTENTIAL (PROGNOSIS): good PROBLEM LIST: decreased endurance and strength for ADLs and IADLs OT RECOMMENDATIONS: return home with home health SUPERVISION: intermittent BARRIERS TO DISCHARGE:pain FREQUENCY OF THERAPY: 3-5 TIMES / WEEK SHORT TERM GOALS: Multi-Disciplinary Problems (from Occupational Therapy) Active Problems Problem: OT [facility] Start Date: 10/28/17 Goal Start Date End Date [facility] 1 10/28/17 -- Goal Details: Patient will complete bathing with min A 1x using AE Goal Start Date End Date [facility] 2 10/28/17 -- Goal Details: Patient will complete LE dressing with min A using AE 1x Goal Start Date End Date [facility] 3 10/28/17 -- Goal Details: Patient will complete bed/chair/toilet transfer mod I 1x Goal Start Date End Date [facility] 4 10/28/17 -- Goal Details: Patient will verbalize 2/3 energy conservation techniques for ADLs after review of information 1x Goal Start Date End Date [facility] 5 10/28/17 -- Goal Details: Patient will [...] is scheduled for MRIscan lumbar spine at [facility]. I will see the patient after the [...] and will try therapy tomorrow. * Kerline Cedeno RD - 10/26/2017 1:59 PM CDT Nutrition [...] Type of Weight Used forEstimated Protein : Compton. ?? Total Fluid Estimated Needs: 1936.5 Fluid [...] 20 mg by mouth daily. 05/11/12 Radha Leyva DO oxybutynin (DITROPAN) 5 mg tablet take 1 [...] mg by mouth nightly. 05/11/12 Radha Sumaya Gordon, DO sitaGLIPtin-metformin (JANUMET) 50-1,000 mg per tablet [...] for agitation. OBJECTIVE: Vitals: Arrival Vitals Temp 10/25/172123 37 ??C (98.6 ??F) Pulse 10/25/172123 100 Resp 10/25/172123 18 BP 10/25/172123 134/68 SpO2 10/25/172123 96 % Temp src 10/25/172123 Oral Heart Rate Source 10/25/172144 Monitor Patient Position 10/25/17 2145 Lying BP Location 10/25/17 2215 Right arm [...] complication, without long-term current use of insulin ([facility]) History of DVT (deep vein thrombosis) History of pulmonary embolism Cancer of overlapping sites of left female breast ([facility]) 1 Low back pain with left lower [...] does not fit the closed MRI. Hold Eric as was the plan for epidural steroid [...] fit her into the MRI scan at [facility] and she reported that earlier kena attempted to get an MRI scan at [facility] and was not successful because of [...] scan performed at the open unit in [facility]. I have personally seen this MRI scan [...] RN - 10/27/2017 11:11 AM CDT Karly Marques [id number] Remi Garza MD Pre-Education Assessment Visit Type: Initial (This was a short visit. EMS ambulance service arrived to take patient off the floor for testing.) Introduction: ID verified Provider: Medical/Property Appraiser/PCP (Patient states that she recently started seeing [...] with diabetes related questions. Nydia Maciel RN, Factory Lay Out Engineer 10/27/2017 11:11 AM documented in this encounter [...] also noticed slight constipation secondaryto her taking Roosevelt 5 mg every 6 hours. Patient denies [...] venous thrombosis. Patient was discharged home with Roosevelt and Prednisone. Patient was admitted here from 10/22/2017 until 10/23/2017 for similar symptoms. She was discharged after 19 hours with Flexeril and Neurontin. Patient History Patient Active Problem List Diagnosis Date Noted ??? Dysuria 10/26/2017 ??? Acute left-sided low back pain with left-sided sciatica 10/23/2017 ??? Type 2 diabetes mellitus with neurologic complication, without long-term current use of insulin([facility]) 10/23/2017 ??? [...] palpitations. Gastrointestinal: Positive for constipation (secondary to Roosevelt use). Negative for abdominal pain, diarrhea, nausea [...] and vitals reviewed. MDM MDM Labs Reviewed POCT GLUCOSE DEVICE - [...] be going home with a script for Roosevelt. Health Behavior: ??? Understanding of discharge needs [...] 2 techniques. * Plan of Care - Jo Odonnell - 10/30/2017 3:00 PM CDT Health Behavior: [...] given dilaudid, said that she would try Roosevelt next time, blood sugars still fluctuating, now [...] Breast: Negative. OBJECTIVE: Vitals: Arrival Vitals Temp 10/25/174 37 ??C (98.6 ??F) Pulse 10/25/17 2124 100 Resp 10/25/172123 18 BP 10/25/17 2124 134/68 SpO2 10/25/172123 96 % Temp src [...] of insulin (CMS/HCC) Radiculopathy, lumbosacral region Dysuria Full Code Estimated [...] Progressing * Plan of Care - Ragini Villalobos RN - 10/27/2017 5:49 AM CDT Lack [...] dose; around 0400 pts bs was 360[address] gave pt 3 units of lispro one [...] * POCT glucose (10/31/2017 2:08 PM CDT) [facility] Glucose, POC 151 70 - 199 mg/dL MARY JANE Blood specimen (specimen) 10/31/2017 2:08 PM CDT 10/31/2017 2:08 PM CDT Narrative MARY JANE - 10/31/2017 2:19 PM CDT us Elo Aceves MD LAB POCT ORDERABLES - DEVICE Final Result Performing Organization Address [facility]/ZIP Co de Phone Number [facility] [address] Department [place] [address] * XR Spine Lumbar 2 or 3 Views (10/31/2017 12:51 PM CDT) Narrative RAD_PACS_ - 10/31/2017 12:51 PM CDT The images from this study are not interpreted by Radiology. ??Please refer to the physician's procedure / OR operative note. us John Paul Moyer MD IMG XR PROCEDURES Fin al Result Performing Organization Address City/[facility]/ZIP Co de Phone Number RAD_PACS_ * POCT glucose (10/31/2017 7:38 AM CDT) Glucose, POC 176 70 - 199 mg/dL C[facility] Blood specimen (specimen) 10/31/2017 7:38 AM CDT 10/31/2017 7:38 AM CDT Narrative CERNER - 10/31/2017 7:40 AM CDT Elo Aceves MD LAB POCT ORDERABLES - DEVICE Final Result Performing Organization Address [facility] Co de Phone Number MARY JANE [address] [facility] [place] [address] * POCT glucose (10/31/2017 2:57 AM CDT) Glucose, POC 194 70 - 199 mg/dL [facility] Blood specimen (specimen) 10/31/2017 2:57 AM CDT 10/31/2017 2:57 AM CDT Narrative [facility] - 10/31/2017 2:58 AM CDT Elo Aceves MD LAB POCT ORDERABLES - DEVICE Final Result Performing Organization Address [facility] de Phone Number MARY JANE ARNOLD [address] [place] [address] * (ABNORMAL) POCT glucose (10/30/2017 8:38 PM CDT) Glucose, POC 201(H) 70 - 199 mg/dL [facility] Blood specimen (specimen) 10/30/2017 8:38 PM CDT 10/30/2017 8:38 PM CDT Narrative CERNER - 10/30/2017 8:40 PM CDT Elo Aceves MD LAB POCT ORDERABLES - DEVICE Final Result Performing Organization Address [facility] Co de Phone Number BCPUJA ARNOLD [address] [facility] [address] [place] [phone] * POCT glucose (10/30/2017 5:50 PM CDT) Glucose, POC 164 70 - 199 mg/dL [facility] Blood specimen (specimen) 10/30/2017 5:50 PM CDT 10/30/2017 5:50 PM CDT Narrative [facility] - 10/30/2017 5:51 PM CDT Elo Aceves MD LAB POCT ORDERABLES - DEVICE Final Result Performing Organization Address City/[facility]/ZIP Co de Phone Number MARY JANE CATALINA [address] [place] [address] * POCT glucose (10/30/2017 12:44 PM CDT) Glucose, POC 165 70 - 199 mg/dL [facility] Blood specimen (specimen) 10/30/2017 12:44 PM CDT 10/30/2017 12:44 PM CDT Narrative [facility] - 10/30/2017 12:45 PM CDT Elo Aceves MD LAB POCT ORDERABLES - DEVICE Final Result Performing Organization Address City/[facility] Co de Phone Number MARY JANE CATALINA [address] [place] [address] * POCT glucose (10/30/2017 7:37 AM CDT) Glucose, POC 178 70 - 199 mg/dL [facility] Blood specimen (specimen) 10/30/2017 7:37 AM CDT 10/30/2017 7:37 AM CDT Narrative [facility] - 10/30/2017 7:38 AM CDT Hipolito Phipps DO LAB POCT ORDERABLES - DEVICE Final Result MARY JANE ARNOLD [address] [facility] [place] [address] * POCT glucose (10/30/2017 3:06 AM CDT) Glucose, POC 198 70 - 199 mg/dL [facility] Blood specimen (specimen) 10/30/2017 3:06 AM CDT 10/30/2017 3:06 AM CDT Narrative BC[facility] - 10/30/2017 3:16 AM CDT Hipolito Brian Moise LAB POCT ORDERABLES - DEVICE Final Result Performing Organization Address [facility] de Phone Number MARY JANE ARNOLD [address] [place] [address] * (ABNORMAL) POCT glucose (10/29/2017 8:46 PM CDT) Glucose, POC 238(H) 70 - 199 mg/dL [facility] Blood specimen (specimen) 10/29/2017 8:46 PM CDT 10/29/2017 8:46 PM CDT Narrative [facility] - 10/29/2017 8:56 PM CDT Hipolito Phipps [facility] POCT ORDERABLES - DEVICE Final Result Performing Organization Address [facility] de Phone Number BCPUJA ARNLOD [address] [place] [address] * POCT glucose (10/29/2017 5:53 PM CDT) Glucose, POC 149 70 - 199 mg/dL [facility] Blood specimen (specimen) 10/29/2017 5:53 PM CDT 10/29/2017 5:53 PM CDT Narrative CERNER - 10/29/2017 5:54 PM CDT Hipolito Phipps [facility] POCT ORDERABLES - DEVICE Final Result MARY JANE ARNOLD [address] [facility] [place] [address] * (ABNORMAL) POCT glucose (10/29/2017 12:56 PM CDT) Glucose, POC 201(H) 70 - 199 mg/dL [facility] Blood specimen (specimen) 10/29/2017 12:56 PM CDT 10/29/2017 12:56 PM CDT Narrative [facility] - 10/29/2017 12:58 PM CDT Hipolito Phipps DO LAB POCT ORDERABLES - DEVICE Final Result Performing Organization Address [facility] Co de Phone Number MARY JANE ARNOLD [address] [facility] [place] [address] * POCT glucose (10/29/2017 7:59 AM CDT) Glucose, POC 174 70 - 199 mg/dL [facility] Blood specimen (specimen) 10/29/2017 7:59 AM CDT 10/29/2017 7:59 AM CDT Narrative [facility] - 10/29/2017 8:15 AM CDT us Hipolito Phipps DO LAB POCT ORDERABLES - DEVICE Final Result Performing Organization Address [facility] de Phone Number MARY JANE ARNOLD [address] [address] * (ABNORMAL) POCT glucose (10/29/2017 2:39 AM CDT) Glucose, POC 236(H) 70 - 199 mg/dL [facility] Blood specimen (specimen) 10/29/2017 2:39 AM CDT 10/29/2017 2:39 AM CDT Narrative [facility] - 10/29/2017 2:41 AM CDT Elo Aceves MD LAB POCT ORDERABLES - DEVICE Final Result Performing Organization Address [facility] de Phone Number MARY JANE ARNOLD [address] [place], [place] [phone] * (ABNORMAL) POCT glucose (10/28/2017 8:15 PM CDT) Glucose, POC 208(H) 70 - 199 mg/dL [facility] Blood specimen (specimen) 10/28/2017 8:15 PM CDT 10/28/2017 8:15 PM CDT Narrative [facility] - 10/28/2017 8:18 PM CDT Elo Aceves MD LAB POCT ORDERABLES - DEVICE Final Result Performing Organization Address [facility] Co de Phone Number MARY JANE ARNOLD [address] [place] [address] * POCT glucose (10/28/2017 5:49 PM CDT) Glucose, POC 168 70 - 199 mg/dL [facility] Blood specimen (specimen) 10/28/2017 5:49 PM CDT 10/28/2017 5:49 PM CDT Narrative C[facility]ER - 10/28/2017 5:51 PM CDT Elo Aceves MD LAB POCT ORDERABLES - DEVICE Final Result Performing Organization Address [facility] de Phone Number MARY JANE [address] [place] [address] * (ABNORMAL) POCT glucose (10/28/2017 12:43 PM CDT) Glucose, POC 277(H) 70 - 199 mg/dL [facility] Blood specimen (specimen) 10/28/2017 12:43 PM CDT 10/28/2017 12:43 PM CDT Narrative [facility] - 10/28/2017 12:44 PM CDT Elo Aceves MD LAB POCT ORDERABLES - DEVICE Final Result Performing Organization Address [facility] Co de Phone Number MARY JANE ARNOLD [address] [facility] [place] [address] * (ABNORMAL) Urinalysis, microscopic only (10/28/2017 8:18 [...] AM CDT Narrative [facility] - 10/28/2017 8:33 AM CDT Remi Garza MD LAB URINE ORDERABLES F inal Result Performing Organization Address [facility] de Phone Number MARY JANE ARNOLD [address] [facility] [place] [address] * (ABNORMAL) Urinalysis reflex to microscopic and [...] Negative Negative [facility] Urine, clean voided 10/28/2017 8:18 AM CDT 10/28/2017 8:28 AM CDT Narrative MARY JANE - 10/28/2017 8:32 AM CDT ?? Urine pH is affected by diet, medications, systemic acid-base disturbances, and renal tubular function. ??pH may affect urinary stone formation. ??For example, urine pH below 6.0 may help reduce the tendency for calcium phosphate stones and pH greater than 6.0 may reduce the tendency for uric acid stone formation. Source: [facility]. Last revised 05-04-2017 us Remi Garza MD LAB MICROBIOLOGY - GEN ERAL ORDERABLES Final Result Performing Organization Address [facility] Co de Phone Number [facility] [address] [facility] [place] [address] * POCT glucose (10/28/2017 7:46 AM CDT) Glucose, POC 155 70 - 199 mg/dL [facility] Blood specimen (specimen) 10/28/2017 7:46 AM CDT 10/28/2017 7:46 AM CDT Narrative [facility] - 10/28/2017 7:55 AM CDT Elo Aceves MD LAB POCT ORDERABLES - DEVICE Final Result Performing Organization Address [facility] de Phone Number [facility] [address] [place] [address] * (ABNORMAL) POCT glucose (10/28/2017 3:27 AM CDT) Glucose, POC 205(H) 70 - 199 mg/dL [facility] Blood specimen (specimen) 10/28/2017 3:27 AM CDT 10/28/2017 3:27 AM CDT Narrative [facility] - 10/28/2017 3:29 AM CDT Elo Aceves MD LAB POCT ORDERABLES - DEVICE Final Result Performing Organization Address [facility]/ZIP Co de Phone Number MARY JANE ARNOLD [address] [facility] [place] [address] * (ABNORMAL) POCT glucose (10/27/2017 8:18 PM CDT) Glucose, POC 297(H) 70 - 199 mg/dL [facility] Blood specimen (specimen) 10/27/2017 8:18 PM CDT 10/27/2017 8:18 PM CDT Narrative C[facility]ER - 10/27/2017 8:20 PM CDT Elo Aceves MD LAB POCT ORDERABLES - DEVICE Final Result Performing Organization Address [facility] Co de Phone Number MARY JANE ARNOLD [address] [place] [address] * (ABNORMAL) POCT glucose (10/27/2017 5:30 PM CDT) Glucose, POC 245(H) 70 - 199 mg/dL [facility] Blood specimen (specimen) 10/27/2017 5:30 PM CDT 10/27/2017 5:30 PM CDT Narrative [facility] - 10/27/2017 5:35 PM CDT Elo Aceves MD LAB POCT ORDERABLES - DEVICE Final Result Performing Organization Address [facility] Co de Phone Number MARY JANE ARNOLD [address] [place] [address] * POCT glucose (10/27/2017 1:08 PM CDT) Glucose, POC 190 70 - 199 mg/dL [facility] Blood specimen (specimen) 10/27/2017 1:08 PM CDT 10/27/2017 1:08 PM CDT Narrative [facility] - 10/28/2017 3:46 AM CDT us Elo Aceves MD LAB POCT ORDERABLES - DEVICE Final Result MARY JANE ARNOLD [address] [place] [address] * MRI Lumbar Spine WO Contrast (10/27/2017 [...] by: Melvin Knight M.D. Elo Aceves MD [facility] MRI PROCEDURES Final Result * (ABNORMAL) POCT glucose (10/27/2017 7:49 AM CDT) Glucose, POC 317(H) 70 - 199 mg/dL MARY JANE ARNOLD Blood specimen (specimen) 10/27/2017 7:49 AM CDT 10/27/2017 7:49 AM CDT Narrative MARY JANE ARNOLD - 10/27/2017 8:24 AM CDT Elo Aceves MD LAB POCT ORDERABLES - DEVICE Final Result Performing Organization Address [facility] Co de Phone Number MARY JANE [address] [facility] [place] [address] * (ABNORMAL) Hemoglobin A1c (10/27/2017 6:29 AM CDT) Hgb A1C 9.2(H) 4.0 - 6.0 % MARY JANE Comment: Interpretive Data Hemoglobin A1c ADA Interpretive Guidelines ??<7% ?? Glycemia controlled ??>8% ?? Hyperglycemia, additional action recommended Lizandro Immunochemical Method Current interpretive data was last revised on 2015 Testing performed by: [facility], [place] [address] Estimated Average Glucose 217 mg/dL MARY JANE Comment:Testing performed by : [facility], [place] [address] Blood specimen (specimen) 10/27/2017 6:29 AM CDT 10/28/2017 10:34 AM CDT Narrative MARY JANE - 10/28/2017 11:43 AM CDT Please add to labs done today Elo Aceves MD LAB BLOOD ORDERABLE S Final Result Performing Organization Address [facility] de Phone Number [facility] [address] [place] [address] * eGFR (10/27/2017 6:29 AM [...] ??mL/min/1.73m2 *Relative to young adult level If -Slovak multiply value by 1.16. Estimated glomerular filtration [...] AM CDT 10/27/2017 6:46 AM CDT Narrative [facility] - 10/27/2017 7:07 AM CDT us Remi Garza MD LAB BLOOD ORDERABLES F inal Result [facility] [id number] [address] Department [place] [address] * (ABNORMAL) Differential, auto (10/27/2017 6:29 AM CDT) Neutrophil abs 6.2 1.7 - 6.5 K/cumm [facility] Imm gran abs 0.0 0.0 - 0.1 K/cumm [facility] Lymphocyte abs 3.1 0.8 - 3.3 K/cumm [facility] Monocyte abs 0.9(H) 0.2 - 0.8 K/cumm [facility] Eosinophil abs 0.1 0.0 - 0.5 K/cumm [facility] Basophil abs 0.0 0.0 - 0.1 K/cumm [facility] Neutrophil pct 60.0 % [facility] Comment: Interpretive Data Percent cell count reference ranges are not reported, since discordance with absolute values may lead to misinterpretation of CBC data. Current Interpretive Data was last revised on 2017. Imm gran pct 0.4 % [facility] Comment: Interpretive Data Percent cell count reference ranges are not reported, since discordance with absolute values may lead to misinterpretation of CBC data. Current Interpretive Data was last revised on 2017. Lymphocyte pct 29.5 % [facility] Comment: Interpretive Data Percent cell count reference ranges are not reported, since discordance with absolute values may lead to misinterpretation of CBC data. Current Interpretive Data was last revised on 2017. Monocyte pct 8.7 % [facility] Comment: Interpretive Data Percent cell count reference ranges are not reported, since discordance with absolute values may lead to misinterpretation of CBC data. Current Interpretive Data was last revised on 2017. Eosinophil pct 1.0 % [facility] Comment: Interpretive Data Percent cell count reference ranges are not reported, since discordance with absolute values may lead to misinterpretation of CBC data. Current Interpretive Data was last revised on 2017. Basophil pct 0.4 % [facility] Comment: Interpretive Data Percent cell count reference ranges are not reported, since discordance with absolute values may lead to misinterpretation of CBC data. Current Interpretive Data was last revised on 2017. Blood specimen (specimen) 10/27/2017 6:29 AM CDT 10/27/2017 6:46 AM CDT Johnathan HINTON - 10/27/2017 6:49 AM CDT Remi Garza MD LAB BLOOD ORDERABLES F inal Result [facility] [id number] [address] [place] [address] * (ABNORMAL) Magnesium (10/27/2017 6:29 AM CDT) Magnesium 1.7(L) 1.8 - 2.6 mg/dL [facility] Blood specimen (specimen) 10/27/2017 6:29 AM CDT 10/27/2017 6:46 AM CDT Johnathan HINTON - 10/27/2017 7:07 AM CDT Remi Garza MD LAB BLOOD ORDERABLES F inal Result Performing Organization Address City/[facility]/ZIP Co de Phone Number MARY JANE ARNOLD [address] [address] Department [employer] [place], [place] [id number] * (ABNORMAL) Basic metabolic panel (10/27/2017 6:29 AM CDT) Pathologist [facility] Sodium 133(L) 135 - 145 mmol/L [facility] Potassium, pl 4.3 3.5 - 5.1 mmol/L [facility] Chloride 101 100 - 114 mmol/L [facility] CO2 27 22 - 32 mmol/L [facility] Anion gap 9 8 - 16 mmol/L [facility] BUN 20 8 - 24 mg/dL [facility] Creatinine 0.82 0.60 - 1.30 mg/dL [facility] Glucose 349(H) 70 - 199 mg/dL [facility] [...] 2017. Calcium 9.0 8.4 - 10.5 mg/dL [facility] Blood specimen (specimen) 10/27/2017 6:29 AM CDT 10/27/2017 6:46 AM CDT Narrative [facility] - 10/27/2017 7:07 AM CDT Remi Garza MD LAB BLOOD ORDERABLES F inal Result Performing Organization Address City/[facility]/ZIP Co de Phone Number MARY JANE ARNOLD [address] [place] [address] * (ABNORMAL) CBC with auto differential (10/27/2017 6:29 AM CDT) WBC 10.4(H) 3.8 - 9.9 K/cumm [facility] RBC 3.87(L) 3.90 - 5.20 M/cumm [facility] Hgb 10.5(L) 11.9 - 15.5 g/dL [facility] Hct 34.8(L) 35.6 - 45.5 % [facility] MCV 89.9 81.3 - 96.4 fL [facility] MCH 27.1 27.1 - 33.3 pg [facility] MCHC 30.2(L) 32.3 - 35.7 g/dL [facility] RDW CV 14.9 11.1 - 14.9 % [facility] RDW SD 49.5(H) 35.7 - 48.1 fL [facility] Plt 274 150 - 400 K/cumm [facility] MPV 10.2 9.1 - 12.3 fL [facility] NRBC abs 0.00 0.00 - 0.01 K/cumm [facility] Blood specimen (specimen) 10/27/2017 6:29 AM CDT 10/27/2017 6:46 AM CDT Narrative [facility] - 10/27/2017 6:49 AM CDT us Remi Garza MD LAB BLOOD ORDERABLES F inal Result Performing Organization Address [facility]/ZIP Co de Phone Number [facility] [id number] [address] Department [place] [address] * (ABNORMAL) POCT glucose (10/27/2017 4:41 AM CDT) Pathologist [facility] Glucose, POC 360(H) 70 - 199 mg/dL [facility] Blood specimen (specimen) 10/27/2017 4:41 AM CDT 10/27/2017 4:41 AM CDT Narrative [facility] - 10/27/2017 4:42 AM CDT Elo Aceves MD LAB POCT ORDERABLES - DEVICE Final Result MARY JANE ARNOLD [address] [place] [address] * (ABNORMAL) POCT glucose (10/26/2017 9:09 PM CDT) Glucose, POC 408(H) 70 - 199 mg/dL [facility] Blood specimen (specimen) 10/26/2017 9:09 PM CDT 10/26/2017 9:09 PM CDT Narrative [facility] - 10/26/2017 9:10 PM CDT Elo Aceves MD LAB POCT ORDERABLES - DEVICE Final Result Performing Organization Address City/[facility]/ZIP Co de Phone Number MARY JANE ARNOLD [address] [place] [address] * (ABNORMAL) POCT glucose (10/26/2017 9:05 PM CDT) Glucose, POC 420(H) 70 - 199 mg/dL [facility] Blood specimen (specimen) 10/26/2017 9:05 PM CDT 10/26/2017 9:05 PM CDT Narrative [facility] - 10/26/2017 9:06 PM CDT Elo Aceves MD LAB POCT ORDERABLES - DEVICE Final Result Performing Organization Address City/[facility]/ZIP Co de Phone Number MARY JANE ARNOLD [address] [place] [address] * (ABNORMAL) POCT glucose (10/26/2017 5:48 PM CDT) Glucose, POC 318(H) 70 - 199 mg/dL [facility] Blood specimen (specimen) 10/26/2017 5:48 PM CDT 10/26/2017 5:48 PM CDT Narrative [facility] - 10/26/2017 5:52 PM CDT Elo Aceves MD LAB POCT ORDERABLES - DEVICE Final Result Performing Organization Address [facility] de Phone Number [facility] [phone] [address] [facility] [place] [address] * (ABNORMAL) POCT glucose (10/26/2017 12:16 PM CDT) Glucose, POC 357(H) 70 - 199 mg/dL [facility] Blood specimen (specimen) 10/26/2017 12:16 PM CDT 10/26/2017 12:16 PM CDT Narrative MARY JANE - 10/26/2017 12:22 PM CDT Elo Aceves MD LAB POCT ORDERABLES - DEVICE Final Result Performing Organization Address [facility] de Phone Number [facility] [address] [address] [facility] [place] [address] * (ABNORMAL) POCT glucose (10/26/2017 8:06 AM CDT) Glucose, POC 380(H) 70 - 199 mg/dL [facility] Blood specimen (specimen) 10/26/2017 8:06 AM CDT 10/26/2017 8:06 AM CDT Narrative MARY JANE - 10/26/2017 8:09 AM CDT Elo Aceves MD LAB POCT ORDERABLES - DEVICE Final Result Performing Organization Address [facility] de Phone Number [facility] [address] [address] [facility] [place] [address] * eGFR (10/26/2017 7:38 AM CDT) eGFR 78 mL/min/1.7 3 m2 [facility] Comment: Interpretive Data Reference Interval Normal ?>/= 90 mL/min/1.73m2 Mildly decreased* ? 60 - 89 mL/min/1.73m2 Mildly to moderately decreased ?45 - 59 mL/min/1.73m2 Moderately to severely decreased ??30 - 44 mL/min/1.73m2 Severely decreased ?15 - 29 mL/min/1.73m2 Kidney Failure ?< 15 ??mL/min/1.73m2 *Relative to young adult level If -Slovak multiply value by 1.16. Estimated glomerular filtration [...] BLOOD ORDERABLES F inal Result MARY JANE [id number] [address] [place] [address] * (ABNORMAL) Differential, auto (10/26/2017 7:38 AM CDT) Neutrophil abs 6.5 1.7 - 6.5 K/cumm [facility] Imm gran abs 0.0 0.0 - 0.1 K/cumm [facility] Lymphocyte abs 1.1 0.8 - 3.3 K/cumm [facility] Monocyte abs 0.0(L) 0.2 - 0.8 K/cumm [facility] Eosinophil abs 0.0 0.0 - 0.5 K/cumm [facility] Basophil abs 0.0 0.0 - 0.1 K/cumm [facility] Neutrophil pct 83.9 % [facility] Comment: Interpretive Data Percent cell count reference ranges are not reported, since discordance with absolute values may lead to misinterpretation of CBC data. Current Interpretive Data was last revised on 2017. Imm gran pct 0.6 % [facility] Comment: Interpretive Data Percent cell count reference ranges are not reported, since discordance with absolute values may lead to misinterpretation of CBC data. Current Interpretive Data was last revised on 2017. Lymphocyte pct 14.5 % [facility] Comment: Interpretive Data Percent cell count reference ranges are not reported, since discordance with absolute values may lead to misinterpretation of CBC data. Current Interpretive Data was last revised on 2017. Monocyte pct 0.6 % [facility] Comment: Interpretive Data Percent cell count reference ranges are not reported, since discordance with absolute values may lead to misinterpretation of CBC data. Current Interpretive Data was last revised on 2017. Eosinophil pct 0.1 % [facility] Comment: Interpretive Data Percent cell count reference ranges are not reported, since discordance with absolute values may lead to misinterpretation of CBC data. Current Interpretive Data was last revised on 2017. Basophil pct 0.3 % [facility] Comment: Interpretive Data Percent cell count reference ranges are not reported, since discordance with absolute values may lead to misinterpretation of CBC data. Current Interpretive Data was last revised on 2017. Blood specimen (specimen) 10/26/2017 7:38 AM CDT 10/26/2017 7:54 AM CDT Narrative [facility] - 10/26/2017 8:02 AM CDT us Remi Garza MD LAB BLOOD ORDERABLES F inal Result [facility] [id number] [address] [place] [address] * (ABNORMAL) Magnesium (10/26/2017 7:38 AM CDT) Magnesium 1.7(L) 1.8 - 2.6 mg/dL [facility]ANE Blood specimen (specimen) 10/26/2017 7:38 AM CDT 10/26/2017 7:54 AM CDT Narrative [facility] - 10/26/2017 8:15 AM CDT Remi Garza MD LAB BLOOD ORDERABLES F inal Result Performing Organization Address City/[facility]/ZIP Co de Phone Number [facility] [address] [address] Department [place] [address] * (ABNORMAL) Basic metabolic panel (10/26/2017 7:38 AM CDT) Sodium 133(L) 135 - 145 mmol/L [facility] Potassium, pl 4.6 3.5 - 5.1 mmol/L [facility] Chloride 102 100 - 114 mmol/L [facility] CO2 23 22 - 32 mmol/L [facility] Anion gap 13 8 - 16 mmol/L [facility] BUN 17 8 - 24 mg/dL [facility] Creatinine 0.81 0.60 - 1.30 mg/dL [facility] Glucose 414(H) 70 - 199 mg/dL [facility] [...] - 10.5 mg/dL [facility] Blood specimen (specimen) 10/26/2017 7:38 AM CDT 10/26/2017 7:54 AM CDT Narrative [facility] - 10/26/2017 8:15 AM CDT Remi Garza MD LAB BLOOD ORDERABLES F inal Result MARY JANE ARNOLD [address] [address] Department of Laboratories [place], [place] [address] * (ABNORMAL) CBC with auto differential (10/26/2017 7:38 AM CDT) WBC 7.8 3.8 - 9.9 K/cumm [facility] RBC 4.19 3.90 - 5.20 M/cumm [facility] Hgb 11.6(L) 11.9 - 15.5 g/dL [facility] Hct 36.6 35.6 - 45.5 % [facility] MCV 87.4 81.3 - 96.4 fL [facility] MCH 27.7 27.1 - 33.3 pg [facility] MCHC 31.7(L) 32.3 - 35.7 g/dL [facility] RDW CV 14.6 11.1 - 14.9 % [facility] RDW SD 46.7 35.7 - 48.1 fL [facility] Plt 294 150 - 400 K/cumm [facility] MPV 9.8 9.1 - 12.3 fL [facility] NRBC abs 0.00 0.00 - 0.01 K/cumm [facility] Blood specimen (specimen) 10/26/2017 7:38 AM CDT 10/26/2017 7:54 AM CDT Narrative [facility] - 10/26/2017 8:02 AM CDT Remi Garza MD LAB BLOOD ORDERABLES F inal Result Performing Organization Address [facility] Co de Phone Number MARY JANE ARNOLD [address] [address] [place] [address] * aPTT (10/26/2017 7:38 AM CDT) aPTT 32.6 25.0 - 37.0 sec [facility] Blood specimen (specimen) 10/26/2017 7:38 AM CDT 10/26/2017 7:54 AM CDT Narrative [facility] - 10/26/2017 8:17 AM CDT Remi Garza MD LAB BLOOD ORDERABLES F inal Result Performing Organization Address [facility] de Phone Number MARY JANE ARNOLD [address] [address] [facility] [place] [address] * Protime-INR (10/26/2017 7:38 AM CDT) PT 12.8 9.5 - 13.0 sec [facility] INR 1.13 0.90 - 1.20 [facility] Blood specimen (specimen) 10/26/2017 7:38 AM CDT 10/26/2017 7:54 AM CDT Narrative [facility] - 10/26/2017 8:14 AM CDT Remi Garza MD LAB BLOOD ORDERABLES F inal Result Performing Organization Address [facility] de Phone Number MARY JANE ARNOLD [address] [address] [facility] [place] [address] * (ABNORMAL) POCT glucose (10/26/2017 4:57 AM CDT) Glucose, POC 439(H) 70 - 199 mg/dL [facility] Blood specimen (specimen) 10/26/2017 4:57 AM CDT 10/26/2017 4:57 AM CDT Narrative [facility] - 10/26/2017 5:18 AM CDT Remi Garza MD LAB POCT ORDERABLES - DEVICE Final Result Performing Organization Address [facility] de Phone Number MARY JANE ARNOLD [address] [address] [facility] [place] [address] * (ABNORMAL) POCT glucose (10/26/2017 2:09 AM CDT) Glucose, POC 315(H) 70 - 199 mg/dL [facility] Blood specimen (specimen) 10/26/2017 2:09 AM CDT 10/26/2017 2:09 AM CDT Narrative MARY JANE ARNOLD - 10/26/2017 2:11 AM CDT us Notinfile Unknown LAB POCT ORDERABLES - DEVICE F inal Result MARY JANE ARNOLD [id number] [address] [place] [address] documented in this encounter Visit Diagnoses Not [...] IV Push over 2 minutes., Indications: HypoglycemiaIndications:Hypoglycemia diphenhydrAMINE (BENADRYL) tab/cap 25 mg 25 mg, oral, 4 times daily PRN, itching, Starting on Mon10/30/17 at 1125 Given 10/30/2017 12:07 PM CDT 25 mg exemestane (AROMASIN) tablet 25 mg 25 mg, oral, Daily, First dose on Mon10/26/17 at 0900 Given 10/30/2017 9:14 AM CDT 25 mg Given 10/29/2017 11:23 AM CDT 25 mg Given 10/28/2017 8:21 AM CDT 25 mg fluticasone (FLONASE) 50 mcg/actuation nasal spray 1 spray 1 spray, each nostril, 2 times daily, First dose (after last modification) on Mon10/26/17 at 0900 Given 10/29/2017 9:00 PM CDT 1 spray gabapentin (NEURONTIN) capsule 100 mg 100 mg, oral, 3 times daily, First dose on Mon10/26/17 at 0900 Given 10/31/2017 8:19 AM CDT 100 mg Given 10/30/2017 8:41 PM CDT 100 mg Given 10/30/2017 6:05 PM CDT 100 mg HYDROcodone-acetaminophen (NORCO) 5-325 mg per tablet 1 tablet 1 tablet, oral, 4 times daily PRN, 1st line for pain, Starting on Valeri 10/26/17 at 0507, Indications: PainIndications:Pain Given 10/31/2017 10:42 AM CDT 1 t ablet Given 10/31/2017 2:50 AM CDT 1 tablet Given 10/30/2017 6:05 PM CDT 1 tablet HYDROmorphone (DILAUDID) injection 0.5 mg 0.5 mg, intravenous, Every 4 hours PRN, 2nd line for pain, Starting on Valeri 10/26/17 at 0454 Given 10/31/2017 2:0 4 PM CDT 0.5 mg Given 10/31/2017 8:19 AM CDT 0.5 mg Given 10/31/2017 4:05 AM CDT 0.5 mg insulin lispro (HumaLOG) injection 1-4 Units 1-4 [...] CDT 1 Units Ri ght Upper Arm iohexol (OMNIPAQUE) 240 mg iodine/mL injection solution As needed, Starting on Mon10/31/17 at 1238, Intra-Op Given 10/31/2017 12:38 PM CDT 1 mL Other (Comment) lidocaine (XYLOCAINE) 10 mg/mL (1 %) injection As needed, Starting on Mon10/31/17 at 1238, Intra-Op, Indications: Administration of Local AnesthesiaIndications:Administrat ion of Local Anesthesia Given 10/31/2017 12:38 PM CDT 3 mL lisinopril (PRINIVIL,ZESTRIL) tablet 20 mg 20 [...] Given 10/30/2017 6:05 PM CDT 850 mg ondansetron (ZOFRAN) injection 4 mg 4 mg, intravenous, Every 4 hours PRN, nausea, vomiting, Starting on Mon10/26/17 at 1127 Given 10/28/2017 8:09 AM CDT 4 m g oxybutynin XL (DITROPAN-XL) extended release tablet 5 mg 5 mg, oral, Daily, First dose on Mon10/26/17 at 0900, Do not crush or chew Given 10/31/2017 8:19 AM CDT 5 mg Given 10/30/2017 9:13 AM CDT 5 mg Given 10/29/2017 11:19 AM CDT 5 mg polyethylene glycol (MIRALAX) packet 17 g 17 [...] Given 10/30/2017 2:14 PM CDT 50 mg sodium chloride 0.9% solution As needed, Starting on Mon10/31/17 at 1238, Intra-Op Given 10/31/2017 12:38 PM CDT 5 mL triamcinolone (KENALOG) 40 mg/mL injection As needed, Starting on Mon10/31/17 at 1239, Intra-Op Given 10/31/2017 12:39 PM CDT 80 mg documented in this encounter Discontinued Medications [...] Every 12 hours scheduled, First dose on Mon10/26/17 at 2100, Indications: VTE Prophylaxis 1119 (Given - Provider: Jennifer Barroso RN)2041 (Given - Provider: Klarissa Melchor RN) 0913 (Given - Provider: Jo Odonnell) exemestane (AROMASIN) tablet 25 mg 25 mg, oral, Daily, First dose on Mon10/26/17 at 0900 1123 (Given - Provider: Jennifer Barroso RN) 0914 (Given - Provider: Jo Odonnell) 0900 (Not Given - Provider: Jo Odonnell - Reason: Medication not available) fluticasone (FLONASE) 50 mcg/actuation nasal spray 1 spray 1 spray, each nostril, 2 times daily, First dose (after last modification) on Mon10/26/17 at 0900 1125 (Not Given - Provider: Jennifer Barroso RN - Reason: Patient/family refused - Comment: not taking anymore)2100 (Given - Provider: Klarissa Meclhor, NURIS) 0914 (Not Given - Provider: Jo Odonnell [...] Barroso RN)1712 (Given - Provider: Jennifer Barroso RN)204 (Given - Provider: Klarissa Melchor, NURIS) 0913 (Given - Provider: Jo Odonnell)1805 (Given - Provider: Cira Quiros RN)204 (Given - Provider: Madison Riddle, NURIS) 0819 (Given - Provider: Jo Odonnell) HYDROmorphone (DILAUDID) injection 0.5 mg (COMPLETED) 0.5 mg, intravenous, Once, On Mon10/30/17 at 2230, For 1 dose, Indications: Pain 2159 (Given - Provider: Kasie Melara, NURIS) HYDROmorphone (DILAUDID) injection 1 mg (COMPLETED) [...] Kirti Almendarez, NURIS)1408 (Given - Provider: Kirti Almendarez, NURIS) lisinopril (PRINIVIL,ZESTRIL) tablet 20 mg 20 mg, oral, Daily, First dose on Valeri 10/26/17 at 0900 1119 (Given - Provider: Jennifer Barroso RN) 0913 (Given - Provider: Jo Odonnell) 0819 (Given - Provider: Jo Odonnell) metFORMIN (GLUCOPHAGE) tablet 850 mg 850 mg, oral, 2 times daily with meals (bkfst, dinner), First dose on Mon10/30/17 at 1800, Take with food 1805 (Given - Provider: Cira Quiros, NURIS) 0819 (Given - Provider: Jo Odonnell) oxybutynin XL (DITROPAN-XL) extended release tablet 5 mg 5 mg, oral, Daily, First dose on Mon10/26/17 at 0900, Do not crush or chew 1119 (Given - Provider: Jennifer Barroso, NURIS) 0913 (Given - Provider: Jo Odonnell) 0819 (Given - Provider: Jo Odonnell) polyethylene glycol (MIRALAX) packet 17 g 17 g, oral, Daily, First dose on Mon10/26/17 at 0900 1120 (Given - Provider: Jeninfer Barroso RN) 0913 (Given - Provider: Jo Odonnell) 0819 (Given - Provider: Jo Odonnell) rOPINIRole (REQUIP) tablet 5 mg 5 mg, oral, Nightly, First dose on Mon10/26/17 at 2100 2042 (Given - Provider: Klarissa Melchor, NURIS) 204 (Given - Provider: Madison Riddle, NURIS) SITagliptin (JANUVIA) tablet 50 mg 50 mg, oral, Daily, First dose on Mon10/30/17 at 1145, Indications: type 2 diabetes mellitus 1414 (Given - Provider: Jo Odonnell) 0819 (Given - Provider: Jo Odonnell) PRN Medication Order 10/29/2017 10/30/2017 10/31/2017 albuterol HFA (PROVENTIL HFA,VENTOLIN HFA,PROAIR HFA) 90 mcg/actuation inhaler 2 puff 2 puff, inhalation, Every 4 hours PRN (correspondence specialist), wheezing, Starting on Mon10/26/17 at 0456, Indications: Bronchospasm Prevention cyclobenzaprine (FLEXERIL) tablet 5 mg 5 mg, oral, 3 times daily PRN, muscle spasms, Starting on Mon10/26/17 at 0442 0918 (Given - Provider: Jo [...] than 70 mg/dL, Starting on Mon10/26/17 at 0501, If patient is alert and able to eat/drink, give 15 gram glucose or one juice (4 fluid ounces) NOT ORANGE JUICE diphenhydrAMINE (BENADRYL) tab/cap 25 mg 25 mg, oral, 4 times daily PRN, itching, Starting on Mon10/30/17 at 1125 1207 (Given - Provider: Jo Odonnell) glucagon injection 1 mg 1 mg, intramuscular, Every 30 min PRN, low blood sugar, blood glucose less than 70 mg/dL, Starting on Mon10/26/17 at 0501, If patient has no IV access and not alert, given Glucagon IM then follow with either oral glucose or IV dextrose treatment., Indications: Hypoglycemia HYDROcodone-acetaminophe n (NORCO) 5-325 mg per tablet 1 tablet 1 tablet, oral, 4 times daily PRN, 1st line for pain, Starting on Mon10/26/17 at 0507, Indications: Pain 0407 (Given - [...] Lila Ramirez RN)1113 (Given - Provider: Jennifer Barroso, NURIS)1617 (Given - Provider: Jennifer Barroso RN)2038 (Given - Provider: Klarissa Melchor RN) 0005 (Given - Provider: Klarissa Melchor RN)0638 (Given - Provider: Klarissa Melchor RN)1018 (Given - Provider: Jo Odonnell)1417 (Given - Provider: oJ Odonnell)1921 (Given - Provider: Kasie Melara, NURIS)2159 (Not Given - Provider: Kasie Melara RN - Reason: Other) 0405 (Given - Provider: Madison Riddle RN)0819 (Given - Provider: Jo Odonnell)1404 (Given - Provider: Kirti Almendarez RN) iohexol (OMNIPAQUE) 240 mg iodine/mL injection solution (CANCELED) As needed, Starting on 10/31/17 at 1238, Intra-Op 1238 (Given - Provider: John Paul Moyer MD) lidocaine (XYLOCAINE) 10 mg/mL (1 %) injection (CANCELED) As needed, Starting on e 10/31/17 at 1238, Intra-Op, Indications: Administration of Local Anesthesia 1238 (Given - Provider: John Paul Moyer MD) ondansetron (ZOFRAN) injection 4 mg 4 mg, intravenous, Every 4 hours PRN, nausea, vomiting, Starting on Valeri 10/26/17 at 1127 sodium chloride 0.9% solution (CANCELED) As needed, Starting on e 10/31/17 at 1238, Intra-Op 1238 (Given - Provider: John Paul Moyer MD) triamcinolone (KENALOG) 40 mg/mL injection (CANCELED) As needed, Starting on e 10/31/17 at 1239, Intra-Op 1239 (Given - Provider: John Paul Moyer MD) documented in this encounter Orders Medications Ordered That Tyler ht Not Have Been Administered Count Last Ordered Date First Ordered Date HYDROmorphone (DILAUDID) injection 1 mg 2 0 10/31/2017 10/25/2017 diphenhydrAMINE (BENADRYL) tab/cap 25 mg 1 10/30/2017 HYDROmorphone (DILAUDID) injection 0.5 mg 4 10/30/2017 10/26/2017 insulin glargine (LANTUS) in jection 15 Units 2 10/30/2017 metFORMIN (GLUCOPHAGE) tablet 850 mg 1 12/2017 SITagliptin (JANUVIA) tablet 50 mg 1 2017 insulin glargine (LANTUS) in jection 10 Units 5 10/29/2017 10/26/2017 insulin glargine (LANTUS) in jection 12 Units 1 10/29/2017 insulin lispro (HumaLOG) injection 3 Units 1 10/27/2017 acetaminophen (TYLENOL) tablet 650 mg 1 08/2017 albuterol HFA (PROVENTIL HFA ,VENTOLIN HFA,PROAIR HFA) 90 mcg/actuation inhaler 2 puff 1 10/26/2017 bisacodyl (DULCOLAX) suppository 10 mg 1 bisacodyl EC (DULCOLAX EC) tablet 10 mg 1 0 10/26/2017 cyclobenzaprine (FLEXERIL) tablet 5 mg 1 dextrose 50% (concentrated s olution) CONCENTRATED solution 25 g 2 10/26/2017 dextrose oral liquid liquid 15 g 1 10/27/19 18 diphenhydrAMINE (BENADRYL) injection 25 mg 1 10/26/2017 enoxaparin (LOVENOX) syringe 40 mg 1 2017 exemestane (AROMASIN) tablet 25 mg 1 2017 fluticasone (FLONASE) 50 mcg /actuation nasal spray 1 spray 1 10/26/2017 gabapentin (NEURONTIN) capsule 100 mg 1 08/2017 glucagon injection 1 mg 1 10/26/2017 heparin 5,000 unit/mL inject ion 5,000 Units 1 10/26/2017 HYDROcodone-acetaminophen (N ORCO) 5-325 mg per tablet 1 tablet 2 10/26/2017 insulin lispro (HumaLOG) inj ection 1-2 Units 1 10/26/2017 insulin lispro (HumaLOG) inj ection 1-3 Units 1 10/26/2017 insulin lispro (HumaLOG) inj ection 1-4 Units 1 10/26/2017 insulin lispro (HumaLOG) inj ection 1-7 Units 1 10/26/2017 insulin lispro (HumaLOG) inj ection 10 Units 1 10/26/2017 insulin lispro (HumaLOG) injection 5 Units 1 10/26/2017 insulin lispro (HumaLOG) injection 7 Units 1 10/26/2017 lisinopril (PRINIVIL,ZESTRIL) tablet 20 mg 1 10/26/2017 ondansetron (ZOFRAN) injection 4 mg 2 10/2610/25/2017 oxybutynin XL (DITROPAN-XL) extended release tablet 5 mg 1 10/26/2017 oxyCODONE (ROXICODONE) tablet 10 mg 1 10/26 oxyCODONE-acetaminophen (PER COCET) 5-325 mg per tablet 1 tablet 4 10/26/2017 10/25/2017 polyethylene glycol (MIRALAX) packet 17 g 2 10/26/2017 prochlorperazine (COMPAZINE) injection 10 mg 2 10/26/2017 prochlorperazine (COMPAZINE) tablet 10 mg 1 10/26/2017 rivaroxaban (XARELTO) tablet 10 mg 1 2017 rOPINIRole (REQUIP) tablet 5 mg 1 8 methylPREDNISolone sodium parrish ccinate (SOLU-medrol) preservative free injection 125 mg 1 10/25/2017 Lab Orders Without Results Count Last Ordered [...] 10/26/2017 documented in this encounter Care Teams Sociology Teacher Relationship Specialty Start Date End Date Justen Gale MD [address] [facility] [address] [place] [address] PCP - General 10/09/17 Liu Jerez MD Consulting Physician Gastroenterology 07/28/17 [place] [address] [facility] [address] [place] [address] Consulting Physician Pulmonary Disease 08/03/17 Khris Arthur MD [address] [facility] [address] [place] [address] Medical Oncologist/Experimental Machinist Medical Oncology 10/23/17 [place] [address] [facility] [address] [place] [address] Surgeon Orthopedic Surgery 10/23/17 [place] [address] [facility] [address] [place] [address] Consulting Physician Pain Management 10/23/17 documented as of this encounter
--- OUTSIDE RECORDS SUMMARY | 2024-04-26 04:28 | XMS_ITS | Encounter Summary ---
Author Organization [facility] Medical [facility] Address [address] [address] Care Team Providers Care Circular Knife Cutter Machine Name Role Phone Lavonne Hathaway MD Primary Care Provider [phone] Liu Jerez MD Unavailable [phone] Albert Corbin MD Unavailable [phone] Encounter Details Date Type Department Care Team (Late st Contact Info) Description 08/10/2017 Telephone [facility] [address] [address] Dominique Hawkins RMA Social History Tobacco Use Types Packs/Day Years Used Date Smoking Tobacco: Former Smokeless Tobacco: Never Alcohol Use Standard Drinks/Week Comments No 0 (1 standard drink = 0.6 oz pur e alcohol) Comments No Sex and Gender Information Value Date Recorded Sex Assigned at Not on file 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 Gender Identity Not on file Sexual Orientation Not on file documented as of this encounter Miscellaneous Notes * Telephone Encounter - Dominique Hawkins MA - 08/10/2017 10:55 AM CDT The pt called and I informed her that about her test results documented in this encounter Plan of Treatment Not on file documented as of this encounter Visit Diagnoses Not on filedocumented in this encounter Care Teams Circular Knife Cutter Machine Relationship Specialty Start Date End Date Lavonne Hathaway MD [facility] [place] [address] PCP - General 08/16/16 08/17/17 Liu Jerez MD [address] [place] [address] [place] [address] Consulting Physician Gastroenterology 07/28/17 [place] [address] [facility] [address] [place] [address] Consulting Physician Pulmonary Disease 08/03/17 documented as of this encounter
--- OUTSIDE RECORDS SUMMARY | 2024-04-26 04:28 | XMS_ITS | Encounter Summary ---
Author Organization [facility] Healthcare Address [address] [place] [address] Care Team Providers Care Refuse Laborer Name Role Phone Lavonne Hathaway MD Primary Care Provider [phone] Liu Jerez MD Unavailable Encounter Details Date Type Department Care Team (Latest Contact Info) Description 08/01/2017 3:51 AM CDT - 08/01/2017 11:59 PM CDT Hospital Encounter [facility] [address] [place] [address] [place] [address] [place] [address] Discharge Disposition: Discharge to home or self care Social History Tobacco Use Types Packs/Day Years Used Date Smoking Tobacco: Former Smokeless Tobacco: Never Alcohol Use Standard Drinks/Week Comments No 0 (1 standard drink = 0.6 oz pur e alcohol) Comments No Sex and Gender Information Value Date Recorded Sex Assigned at Not on file Legal Sex Female 12:24 AM 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 10 tablet 07/28/2017 08/03/2017 exemestane (AROMASIN) 25 mg tablet Take 25 mg by mouth daily. After a meal 12/12/2017 exemestane (AROMASIN) 25 mg tablet TAKE 1 TABLET BY MOUTH DAILY AFTER A MEAL 08/09/2016 12/13/2017 gabapentin (NEURONTIN) 300 mg capsule TAKE 2 CAPSULE 3 TIMES DAILY 05/31/2017 01/23/2018 HYDROcodone-aceta minophen (NORCO) 5-325 mg per tabletIndications :Pain Take 1-2 tablets every 4 hours as needed for pain 60 tablet 02/24/2017 08/03/2017 lisinopril (PRINIVIL,ZESTRIL ) 20 mg tablet take 1 Tablet (20MG) by oral route every day 0 05/11/2012 12/12/2017 lisinopril (PRINIVIL,ZESTRIL ) 20 mg tablet Take 20 mg by mouth. 05/11/2012 09/12/2021 omeprazole (PriLOSEC) 40 mg capsule Take 1 capsule (40 mg total) by mouth daily. 30 capsule 11 07/28/2017 10/23/2017 oxybutynin (DITROPAN) 5 mg tablet take 1 tablet by oral route every day 0 0 12/12/2013 01/26/2023 oxybutynin (DITROPAN) 5 mg tablet Take 5 mg by mouth. 12/12/2013 12/12/2017 rivaroxaban (XARELTO) 10 mg tablet Take 20 mg by mouth daily after dinner. 11/13/2017 rOPINIRole (REQUIP) 5 mg tablet take 1 tablet (5MG) by oral route every day at bedtime 0 05/11/2012 12/12/2017 sitaGLIPtin-metfo rmin (JANUMET) 50-1,000 mg per tablet Take 1 tablet by mouth daily. 11/06/2017 documented as of this encounter Discharge Disposition Disposition Code Departure Means Destination Discharge to home or self care documented in this encounter Plan of Treatment Not on file documented as of this encounter Procedures Procedure Name Priority Date/Time Associated Diagnosis Comments XR CHEST 1 VIEW ED 08/01/2017 3:58 AM CDT documented in this encounter Results * XR Chest 1 View (08/01/2017 3:58 AM CDT) Anatomical Region Laterality Modality Body, Chest N/A Computed Radiogr aphy Impressions 08/01/2017 8:02 AM CDT NO ACUTE PULMONARY CHANGE Electronically signed by: Aguila Grijalva M.D. Narrative 08/01/2017 8:02 AM CDT RESULT: SINGLE VIEW CHEST: HISTORY: Shortness of breath FINDINGS: A single view of the chest demonstrates small scattered parenchymal and perihilar granulomatous calcifications. The cardiac and mediastinal outlines are unremarkable. There are no significant pleural effusions or pneumothorax. Calcific aortic change and degenerative spine changes are seen. Procedure Note Aguila Grijalva MD - 08/01/2017 RESULT: SINGLE VIEW CHEST: HISTORY: Shortness of breath FINDINGS: A single view of the chest demonstrates small scattered parenchymal and perihilar granulomatous calcifications. The cardiac and mediastinal outlines are unremarkable. There are no significant pleural effusions or pneumothorax. Calcific aortic change and degenerative spine changes are seen. IMPRESSION: NO ACUTE PULMONARY CHANGE Electronically signed by: Aguila Grijalva M.D. Enmanuel Dubon MD IMG XR PROCEDURES Final Res ult documented in this encounter Visit Diagnoses Not on filedocumented in this encounter Care Teams Refuse Laborer Relationship Specialty Start Date End Date Lavonne Hathaway MD [address] [place] [address] [place] [address] PCP - General 08/16/16 08/17/17 Liu Jerez MD [address] [place] [address] [place] [address] Consulting Physician Gastroenterology 07/28/17 documented as of this encounter
--- OUTSIDE RECORDS SUMMARY | 2024-04-26 04:28 | XMS_ITS | Encounter Summary ---
Author Organization [facility] Address [address] [place] [address] Care Team Providers Care Broke Man Name Role Phone Lavonne Hathaway MD Primary Care Provider [phone]- [phone] Liu Jerez MD Unavailable Albert Corbin MD Unavailable Reason for Visit * Reason Comments Shortness of Breath for the past week Nausea Encounter Details Date Type Department Care Team (Late st Contact Info) Description 07/31/2017 10:06 PM CDT - 08/03/2017 5:41 PM CDT Emergency [facility] [id number] [place] [address] [place] [address] [facility] [address] [place], [place] [id number] [place] [id number] [id number] [place] [address] [place] [phone] [place] [address] [address] Chest pain, unspecified type (Primary Dx) Discharge Disposition: Discharge to home or self care Social History Tobacco Use Types Packs/Day Years Used Date Smoking Tobacco: Former Smokeless Tobacco: Never Alcohol Use Standard Drinks/Week Comments No 0 (1 standard drink = 0.6 oz pur e alcohol) Comments No Sex and Gender Information Value Date Recorded Sex Assigned at Not on file 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 Gender Identity Not on file Sexual Orientation Not on file documented as of this encounter Last Filed Vital Signs Vital Sign Reading Time Taken Comments Blood Pressure 108/51 08/03/2017 3:19 PM CDT Pulse 83 08/03/2017 3:19 PM CDT Temperature 36.4 ??C (97.6 ??F) 08/03/2017 3:19 PM CD T Respiratory Rate 18 08/03/2017 3:19 PM CDT Oxygen Saturation 96% 08/03/2017 3:19 PM CDT Inhaled Oxygen Concentration - - Weight 125 kg (275 lb 9.2 oz) 08/01/2017 8:45 AM CDT Height 154.9 cm (5' 1 ) 08/01/2017 8:45 AM CDT Body Mass Index 52.07 08/01/2017 8:45 AM CDT documented in this encounter Discharge Summaries * Elo Aceves MD - 08/03/2017 5:00 PM CDT Inpatient Discharge Summary Admitting Provider: Remi Garza MD Discharge Provider: Elo Aceves MD Primary Care Physician at Discharge: Lavonne Hathaway MD [phone] Date Of Service: 08/03/2017 Admission Date: 07/31/2017 Discharge Date: 08/03/2017 Primary Discharge Diagnosis: Chest pain-atypical Nausea and vomiting -resolved Secondary Discharge Diagnosis: Diabetes LUL with mild pulm HTN on Echo-uses CPAP with sleep Breast cancer Restless leg syndrome Chronic anticoagulation h/o thrombosis Hyponatremia DETAILS OF HOSPITAL STAY Hospital Course: 62 year old female admitted with nausea/vomiting, chest and back pain likely musculoskeletal. Xarelto was held pending CT chest/abd/pelvis to rule out dissection which was negative. Patient was treated symptomatically. She was saturating well on room air. Recent CT chest 4-5 negative for PE. Due tocaog neg staph on blood cx 4-5, repeat blood cx were requested which were negative. Recent UA was positive and pt completed a course of ciprofloxacin-since urine culture was never done recommend repeat UA with reflex culture within a week at primary care physician's office. Monitor soft blood pressures-pt has a blood pressure monitor at home and will keep an eye on it and call primary care physician in case of any problems. Gastric emptying study did not show evidence of gastroparesis, patient has had a bowel movement, no evidence of constipation precipitating nausea/vomiting. Pt has had a recent upper GI endoscopy and will follow with Dr. Jerez as an outpatient. She will follow with [facility] as scheduled. Echo showed mild pulmonary hypertension-pt has been given pulmonarycontact info to set up a repeat sleep study as it has apparently been a long tme since she had her sleep study, she states she is compliant with her CPAP and has even lost weight. Monitor hyponatremia. Recommend repeat labs including CBC, CMP, Mg, Phos, UA with reflex culture within a week. Test Results Pending at Discharge: None Operative Procedures Performed: None Other Procedures: None Pertinent Test Results: Ct Abdomen Pelvis Without Contrast Result Date: 07/27/2017 Narrative: RESULT: EXAMINATION: CT ABDOMEN PELVIS WO CONTRAST Date: 07/27/2017 2:45 PM History: Rt sided abd pain, radiates to center of belly, n/v, abnormal weight loss; Hx of coreen and hernia repair Technique: Transaxial computed tomographic images of the abdomen and pelvis were obtained without the administration of intravenous contrast. Multiplanar coronal and sagittal images were reformatted. Comparison: 01/13/2017 Findings: Visualized lung bases are clear The liver, spleen, pancreas, adrenals kidneys appear within normal is. Bilateral nonobstructing renal calculi. 6 mm nonobstructing stone in the upper pole of the right kidney. 8 mm nonobstructing calculus in the lower pole of left kidney. Evidence of ventral abdominal wall hernia repair and anterior abdominal wall mesh work is seen in place. Sigmoid diverticulosis. Partially filled urinary bladder normal. Normal size uterus. A subcentimeter nabothian cyst in the cervix. Ovaries are atrophic. No bowel obstruction. A normal appendix visualized. Few normal sized lymph node in the mesentery of small bowel. 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 Impression: Unremarkable nonenhanced CT of the abdomen and pelvis. Bilateral nonobstructing renal calculi. Normal appendix. Electronically signed by: Bruce Lake M.D. Nm Gastric Emptying Study Result Date: 08/03/2017 Narrative: EXAM: Nuclear medicine gastric emptying study DATE: 08/02/2017 7:55 AM CLINICAL HISTORY: Abdominal pain TECHNIQUE: After the uneventful oral administration of 1 mCi technetium 99m sulfur colloid in a scrambled egg vehicle with 2 pieces of toast, strawberry jam and 8 ounces water, anteriorand posterior images of the stomach were obtained every the immediate, 1 hour, 2 hour and 4 hour time frames. Comparison was made to a CT abdomen and pelvis from 07/27/2017. FINDINGS: In the immediate timeframe, 100% of activity remained in the stomach lumen. At the 1 hour timeframe, 66% of activity remained in the stomach lumen. At the 2 hour timeframe, 45% of activity remained in the stomach lumen. At the 4 hour timeframe, 5% of activity remained in the stomach lumen. Gastric emptying half-life is 121 minutes, which is normal. Impression: No evidence of gastroparesis. Electronically signed by: Sara Burk M.D. Xr Chest 1 View Result Date: 08/01/2017 Narrative: RESULT: SINGLE VIEW CHEST: HISTORY: Shortness of breath FINDINGS: A single view of the chest demonstrates small scattered parenchymal and perihilar granulomatous calcifications. The cardiac and mediastinal outlines are unremarkable. There are no significant pleural effusions or pneumothorax. Calcific aortic change and degenerative spine changes are seen. Impression: NO ACUTE PULMONARY CHANGE Electronically signed by: Aguila Grijalva M.D. Xr Chest 1 View Result Date: 07/26/2017 Narrative: RESULT: EXAMINATION: XR CHEST 1 VIEW HISTORY: Dyspnea. Impression: Comparison is made to previous examination dated 01/30/2017. Lungs are well-expanded and clear. There is no pleural effusion. No pneumothorax. The heart size is upper limits of normal forportable technique. Unchanged prominence of the central pulmonary vasculature. No mediastinal widening Electronically signed by: Brando Restrepo M.D. Transthoracic Echo Complete W Doppler/cf Result Date: 08/03/2017 Narrative: [place] [address] Echocardiogram Report Patient Name: MOHSEN MARQUES : 1955 Study Date: 08/03/2017 1:46:17 PM Gender: F Tech: Location: [facility] Ref.Physician: Height(Cm): 155 BSA: 2.32 Weight(Kg): 125 Heart Rate: 87 BP: 103/64 Quality: Good Order Physician: Procedures: Echocardiographic Report: Transthoracic echocardiogram with complete 2D, M-Mode, and color Doppler examination. Indications: Chest Pain, Morbid Obesity, and Shortness of Breath. Measurements: 2D/M Mode Doppler Measurement Value Normal Range Measurement Value Normal Range EF Teich 2D60.0 [ 55.0 - 70.0 ] percent ELVIA [...] - 1.00 ] cm LVOT Diam 2.02 [1.70 - 2.10 ] cm IVSd 2D 1.00 [ 0.60 - 0.90 ] cm LVOT Peak Singh 1.12 [ 0.70 - 1.10 ] m/s LA Dimension MM 3.64 [ 2.70 - 3.80 ] cm LVOT VTI 21.98 [ 20.00 - 30.00 ] cm AoR Diam MM 2.53 [ 2.60 - 3.70 ] cmMV E Peak Singh 0.92 [ 0.60 - 1.30 ] m/s LA Volume Index 14.95 [ 16.00 - 28.00 ] cc/m2 MV A Peak Vel0.62 [ 1.00 - 1.20 ] m/s ACS [...] septum. Left Ventricle: Normal left ventricular systolic functionwith no focal wall motion abnormalities. Normal left [...] Normal left ventricular systolic function with no focalwall motion abnormalities. Normal left ventricular wall thickness. Normal left ventricular diastolic function. Ejection fraction is visually estimated at 60 %. Mild mitral annular calcification. Mildpulmonary hypertension based on right ventricular systolic pressure. Estimated peak RVSP is 40 mmHg. Mild tricuspid regurgitation. Electronically Signed By: Gómez Mchugh MD 2017-08-03 16:25:18 CDTCC: CC: Ct Chest Abdomen W Contrast Result Date: 08/03/2017 Narrative: RESULT: HISTORY: Dyspnea and dizziness. EXAMINATION: CT CHEST ABDOMEN W CONTRAST DATE: 08/03/2017 9:00 AM COMPARISON: 07/27/2017 TECHNIQUE: Transaxial computed tomographic images of the chest and abdomen were obtained following the intravenous administration of 92 mL Optiray 350. Multiplanar coronal and sagittal images were reformatted. CT CHEST: The lungs are well-expanded and clear. No evidence of an infiltrate or pulmonary nodule. No evidence of a pneumothorax or pleural effusion. The heart size is normal. No evidence of mediastinal or hilar adenopathy. CT ABDOMEN: The liver, pancreas and spleen appear normal. The gallbladder has been removed. No evidence of free air or free fluid in the abdomen. There is a 5 mm nonobstructing calculus in the upper pole of the right kidney. The kidneys and adrenal glands are otherwise unremarkable. No evidence of retroperitoneal adenopathy.The abdominal aorta is unremarkable. No evidence of bowel obstruction. Impression: 1. NO EVIDENCE OF ACTIVE CARDIOPULMONARY DISEASE. 2. CHOLECYSTECTOMY. 3. NONOBSTRUCTINGCALCULUS IN THE UPPER POLE OF THE RIGHT KIDNEY. 4. NO CHANGE FROM THE STUDY PERFORMED ONE WEEK AGO.Electronically signed by: Jimmie Paiz M.D. Ct Chest Pe W Contrast Result Date: 07/27/2017 Narrative: RESULT: EXAMINATION: CT CHEST WITH INTRAVENOUS CONTRAST, PULMONARY EMBOLISM PROTOCOL Date: 07/27/2017 12:40 AM History: Shortness of breath Technique: Transaxial computed tomographic images of the chest were obtained after the administration of 97 mL Optiray 350 intravenously using a pulmonary embolism protocol. Multiplanar coronal and oblique images were reformatted. Comparison: Comparison is made to the CT chest PE protocol exam dated 09/11/2016. Findings: Mild bilateral dependent lung atelectasis is noted. The mild peripheral left upper lobe density is unchanged and may represent scarring or atelectasis. The lungs are free of acute infiltrates. There is no pneumothorax or pleural effusion. The heart size is normal. There is no evidence of central pulmonary arterial filling defect to suggest acute embolus. There is no evidence of thoracic aortic aneurysm or dissection. There is no pericardial effusion. Scattered mediastinal lymph nodes are subcentimeter. The thyroid gland has a heterogeneous appearance. The right thyroid lobe is larger than the left, possibly due to underlying nodule. Recommend dedicated thyroid ultrasound. There is no axillary lymphadenopathy. The bilateral breasts are absent. Degenerative changes involve the thoracic spine. The gallbladder is surgically absent. A 4 mm calculus is seen within the superior right renal pole. There is no evidence of hydronephrosis in the partially imaged kidney. 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 Impression: No evidence of acute pulmonary emboli. Heterogeneous thyroid. Recommend dedicated thyroid ultrasound. Right nephrolithiasis. A preliminary report was submitted by [facility] on 07/27/2017 at 2:09 AM. Electronically signed by: Prince House M.D. Recent Labs Lab Units 04/12/18 0544 WHITE BLOOD CELLS K/cumm 10.86* HEMOGLOBIN g/dL 10.8* HEMATOCRIT % 34.6* PLATELET COUNT K/cumm 297 Recent Labs Lab Units 08/03/17 1217 08/01/17 0432 SODIUM mmol/L -- -- 130* POTASSIUM PLASMA mmol/L -- -- 3.9 CHLORIDE mmol/L -- -- 98* CO2 mmol/L -- -- 24 ANIONGAP mmol/L -- -- 12 GLUCOSE mg/dL -- -- 180 POC GLUCOSE MONITOR mg/dL 160 < > -- BUN SERUM mg/dL -- -- 16 CREATININE mg/dL -- -- 0.79 CALCIUM mg/dL -- -- 9.4 ALBUMIN g/dL -- -- 3.5 ALK PHOS Units/L -- -- 76 ALT Units/L -- -- 18 AST Units/L -- -- 20 BILIRUBIN TOTAL mg/dL -- -- 0.70 < > = values in this interval not displayed. Physical Exam at Discharge: Discharge Condition: fair Vitals: 08/03/17 0700 08/03/17 0715 08/03/17 1120 08/03/17 1519 BP: 136/79 99/50 108/51 BP Location: Right arm Right arm Right arm Patient Position: Sitting Sitting Pulse: 86 87 82 83 Resp: Temp: 36.8 ??C (98.2 ??F) 36.4 ??C (97.6 ??F) 36.4 ??C (97.6 ??F) TempSrc: Oral Oral Oral SpO2: 97% 98% 96% Weight: Height: Physical exam: Gen:Well built female Lungs:Symmetrical breath sounds b/l Heart:s1,S2 heard Abdomen:Soft, NT, BS+ Extremities:No pitting edema b/l LE Neuro:alert, awake, oriented to self and surroundings, is able to move all extremities Discharge Disposition: Disposition: Home. Code Status at Discharge: Full Code Discharge Instructions: Diet Instructions Adult Discharge Diet Diet Type: Return to previous diet Other Instructions Call provider for: extreme fatigue Special Instructions Discharge Medications: Current Discharge Medication List CONTINUE these medications which have NOT CHANGED Details sitaGLIPtin-metformin (JANUMET) 50-1,000 mg per tablet Take 1 tablet by mouth. exemestane (AROMASIN) 25 mg tablet Take 25 mg by mouth daily. After a meal lisinopril (PRINIVIL,ZESTRIL) 20 mg tablet take 1 Tablet (20MG) by oral route every day Refills: 0 omeprazole (PriLOSEC) 40 mg capsule Take 1 capsule (40 mg total) by mouth daily. Qty: 30 capsule, Refills: 11 oxybutynin (DITROPAN) 5 mg tablet take 1 tablet by oral route every day Qty: 0, Refills: 0 rivaroxaban (XARELTO) 10 mg tablet Take 10 mg by mouth daily. rOPINIRole (REQUIP) 5 mg tablet take 1 tablet (5MG) by oral route every day at bedtime Refills: 0 Current Discharge Medication List Current Discharge Medication List Current Discharge Medication List STOP taking these medications ciprofloxacin (CIPRO) 500 mg tablet Comments: Reason for Stopping: HYDROcodone-acetaminophen (NORCO) 5-325 mg per tablet Comments: Reason for Stopping: Outpatient Follow-Up: primary care provider Lavonne Hathaway MD [address] [place] [address] [place] [address] [facility] [address] [id number] follow up gi within 2 [place] [address] [facility] [address] [facility] [phone] follow up pulmonary for re evaluation of sleep apnea, repeat sleep study due to mild pulmonary hypertension Discharge Time:Greater than 30 minutes Elo Aceves MD [facility] [phone] 08/03/2017 5:00 PM documented in this encounter Medications at Time of Discharge baclofen (LIORESAL) 10 mg tablet TAKE 0.5-1 TAB EVERY 12 HOURS NEEDED FOR MUSCLE CRAMPING/SPAS MS 05/31/2017 01/01/2018 exemestane (AROMASIN) 25 mg tablet Take 25 mg by mouth daily. After a meal 12/12/2017 exemestane (AROMASIN) 25 mg tablet TAKE 1 TABLET BY MOUTH DAILY AFTER A MEAL 08/09/2016 12/13/2017 gabapentin (NEURONTIN) 300 mg capsule TAKE 2 CAPSULE 3 TIMES DAILY 05/31/2017 01/23/2018 lisinopril (PRINIVIL,ZESTRIL ) 20 mg tablet take [...] Progress Notes * Elo Aceves MD - 08/02/2017 4:24 PM CDT Daily Progress Subjective: Pt lying in bed Objective: Vitals: 24hr Min/Max: Temp Min: 36.4 ??C (97.6 ??F) Max: 36.7 ??C (98 ??F) Pulse Min: 64 Max: 87 BP Min: 101/63 Max: 123/83 Resp Min: 12 Max: 20 SpO2 Min: 97 % Max: 98 % Most Recent : Vitals: 08/02/17 0800 08/02/17 1200 08/02/17 1520 08/02/17 1601 BP: 107/70 BP Location: Right arm Patient Position: Sitting Pulse: 81 86 81 74 Resp: 18 Temp: 36.4 ??C (97.6 ??F) TempSrc: Oral SpO2: 97% Weight: Height: I/O last 2 completed shifts: In: 2066 [P.O.:780; I.V.:1286] Out: 1500 [Urine:1500] I/O this shift: In: 240 [P.O.:240] Out: 800 [Urine:800] Physical Exam: Gen:Mod built female Lungs:Symmetrical breath sounds b/l Heart:s1,S2 heard Abdomen:Soft, Nt, BS+ Extremities:No edema b/l LE Lab/Radiology/Diagnostic Review: Recent Results (from the past 24 hour(s)) Glucose POC Collection Time: 08/01/17 5:51 PM Result Value Ref Range Glucose, POC, bld 113 70 - 199 mg/dL Glucose POC Collection Time: 08/01/17 9:21 PM Result Value Ref Range Glucose, POC, bld 211 (H) 70 - 199 mg/dL Glucose POC Collection Time: 08/02/17 3:19 AM Result Value Ref Range Glucose, POC, bld 149 70 - 199 mg/dL Magnesium Collection Time: 08/02/17 5:31 AM Result Value Ref Range Magnesium 1.7 (L) 1.8 - 2.6 mg/dL CBC with auto differential Collection Time: 08/02/17 5:31 AM Result Value Ref Range WBC 10.78 (H) 3.80 - 9.90 K/cumm RBC 3.97 3.90 - 5.20 M/cumm Hgb 10.7 (L) 11.9 - 15.5 g/dL Hct 35.4 (L) 35.6 - 45.5 % MCV 89.2 81.3 - 96.4 fL MCH 27.0 (L) 27.1 - 33.3 pg MCHC 30.2 (L) 32.3 - 35.7 g/dL RDW CV 15.3 (H) 11.1 - 14.9 % RDW SD 50.3 (H) 35.7 - 48.1 fL Platelets 300 150 - 400 K/cumm MPV 9.9 9.1 - 12.3 fL NRBC Abs 0.00 0.00 - 0.01 K/cumm Differential, auto Collection Time: 08/02/17 5:31 AM Result Value Ref Range Neutrophil absolute 6.53 (H) 1.70 - 6.50 K/cumm Immature granulocyte absolute 0.0 0.0 - 0.1 K/cumm Lymphocytes absolute 2.9 0.8 - 3.3 K/cumm Monocyte absolute 0.9 (H) 0.2 - 0.8 K/cumm Eosinophils absolute 0.4 0.0 - 0.5 K/cumm Basophils, abs 0.0 0.0 - 0.1 K/cumm Neutrophils 60.5 % Immature granulocytes 0.4 % Lymphocytes 26.6 % Monocytes 8.3 % Eosinophils 3.8 % Basophils 0.4 % Glucose POC Collection Time: 08/02/17 8:35 AM Result Value Ref Range Glucose, POC, bld 148 70 - 199 mg/dL Glucose POC Collection Time: 08/02/17 2:35 PM Result Value Ref Range Glucose, POC, bld 116 70 - 199 mg/dL Ct Abdomen Pelvis Without Contrast Result Date: 07/27/2017 Narrative: RESULT: EXAMINATION: CT ABDOMEN PELVIS WO CONTRAST Date: 07/27/2017 2:45 PM History: Rt sided abd pain, radiates to center of belly, n/v, abnormal weight loss; Hx of coreen and hernia repair Technique: Transaxial computed tomographic images of the abdomen and pelvis were obtained without the administration of intravenous contrast. Multiplanar coronal and sagittal images were reformatted. Comparison: 01/13/2017 Findings: Visualized lung bases are clear The liver, spleen, pancreas, adrenals kidneys appear within normal is. Bilateral nonobstructing renal calculi. 6 mm nonobstructing stone in the upper pole of the right kidney. 8 mm nonobstructing calculus in the lower pole of left kidney. Evidence of ventral abdominal wall hernia repair and anterior abdominal wall mesh work is seen in place. Sigmoid diverticulosis. Partially filled urinary bladder normal. Normal size uterus. A subcentimeter nabothian cyst in the cervix. Ovaries are atrophic. No bowel obstruction. A normal appendix visualized. Few normal sized lymph node in the mesentery of small bowel. 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 Impression: Unremarkable nonenhanced CT of the abdomen and pelvis. Bilateral nonobstructing renal calculi. Normal appendix. Electronically signed by: Bruce Lake M.D. Xr Chest 1 View Result Date: 08/01/2017 Narrative: RESULT: SINGLE VIEW CHEST: HISTORY: Shortness of breath FINDINGS: A single view of the chest demonstrates small scattered parenchymal and perihilar granulomatous calcifications. The cardiac and mediastinal outlines are unremarkable. There are no significant pleural effusions or pneumothorax. Calcific aortic change and degenerative spine changes are seen. Impression: NO ACUTE PULMONARY CHANGE Electronically signed by: Aguila Grijalva M.D. Xr Chest 1 View Result Date: 07/26/2017 Narrative: RESULT: EXAMINATION: XR CHEST 1 VIEW HISTORY: Dyspnea. Impression: Comparison is made to previous examination dated 01/30/2017. Lungs are well-expanded and clear. There is no pleural effusion. No pneumothorax. The heart size is upper limits of normal forportable technique. Unchanged prominence of the central pulmonary vasculature. No mediastinal widening Electronically signed by: Brando Restrepo M.D. Ct Chest Pe W Contrast Result Date: 07/27/2017 Narrative: RESULT: EXAMINATION: CT CHEST WITH INTRAVENOUS CONTRAST, PULMONARY EMBOLISM PROTOCOL Date: 07/27/2017 12:40 AM History: Shortness of breath Technique: Transaxial computed tomographic images of the chest were obtained after the administration of 97 mL Optiray 350 intravenously using a pulmonary embolism protocol. Multiplanar coronal and oblique images were reformatted. Comparison: Comparison is made to the CT chest PE protocol exam dated 09/11/2016. Findings: Mild bilateral dependent lung atelectasis is noted. The mild peripheral left upper lobe density is unchanged and may represent scarring or atelectasis. The lungs are free of acute infiltrates. There is no pneumothorax or pleural effusion. The heart size is normal. There is no evidence of central pulmonary arterial filling defect to suggest acute embolus. There is no evidence of thoracic aortic aneurysm or dissection. There is no pericardial effusion. Scattered mediastinal lymph nodes are subcentimeter. The thyroid gland has a heterogeneous appearance. The right thyroid lobe is larger than the left, possibly due to underlying nodule. Recommend dedicated thyroid ultrasound. There is no axillary lymphadenopathy. The bilateral breasts are absent. Degenerative changes involve the thoracic spine. The gallbladder is surgically absent. A 4 mm calculus is seen within the superior right renal pole. There is no evidence of hydronephrosis in the partially imaged kidney. 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 Impression: No evidence of acute pulmonary emboli. Heterogeneous thyroid. Recommend dedicated thyroid ultrasound. Right nephrolithiasis. A preliminary report was submitted by [facility] on 07/27/2017 at 2:09 AM. Electronically signed by: Prince House M.D. Assessment/Plan 1. Chest pressure: ?? LHC in 2013 without significant CAD. ??Stress 11/02/16 with 65% of MPHR at [facility] in Care Everywhere. Ct chest negative for PE 4-5-f/u outpt for evaluation of thyroid.. Telemetry. MD has been ruled out via serial troponins. Will request Ct chest. D dimer negative. ?? 2. CONS in blood with dry cough: suspect contaminant. ??Repeat bld cx negative so far. On cipro forpossible UTI-UA positive, will request cx. ?? 3. Weight loss due to ? nausea and vomiting-suspicious for gastroparesis. Emptying study done-results pending. ?? 4. CLAY accompanied with dizziness:will request Ct chest ?? 5. DM: diet controlled. SSI with accucheks. ?? 6. LUL: RT for CPAP ?? 7. Chronic emesis: biopsy last admit normal. ??Thought due to diabetic gastroparesis, ??GI follow up. PPI. ?? 8. h/o DVT/PE: restart xarelto once Ct chest negative for dissection. 9. Hypomagnesemia replaced. ? Full Code ? * Radha Liriano MD - 08/01/2017 10:35 AM CDT General Medicine Daily Progress Days in hospital: 0 SUBJECTIVE: Chief complaint of abdomiinal pain, positive blood cultures. Interval History: Patient states she has not feel worse since discharge but is not feeling better. She still having the abdominal discomfort. She was kind enough to come back in after 1 of her blood cultures came back positive for coagulase-negative Staph. We are repeating blood cultures to see if this was contaminant or not. I do not see any sources of infection other than UTI. I am going to take this opportunity to get gastric emptying study done as I am suspicious for gastroparesis. OBJECTIVE: Vitals: 24hr Min/Max: Temp Min: 36.4 ??C (97.6 ??F) Max: 36.6 ??C (97.8 ??F) Pulse Min: 71 Max: 89 BP Min: 102/79 Max: 128/85 Resp Min: 18 Max: 26 SpO2 Min: 96 % Max: 99 % Most Recent : Vitals: 08/01/17 0521 08/01/17 0528 08/01/17 0816 08/01/17 0845 BP: 102/79 114/76 128/85 BP Location: Right arm Right arm Patient Position: Lying Lying Lying Pulse: 80 79 71 78 Resp: 26 18 18 Temp: 36.5 ??C (97.7 ??F) 36.6 ??C (97.8 ??F) TempSrc: Oral Oral SpO2: 98% 96% 99% Weight: 125 kg (275 lb 9.2 oz) Height: 154.9 cm (5' 1 ) No intake/output data recorded. No intake/output data recorded. Physical Exam: Constitutional: Patient is oriented to person, place, and time. They appear well-developed. HENT: Head: Normocephalic and atraumatic. Nose: Nose normal. Mouth/Throat: Oropharynx is clear and moist. Eyes: Conjunctivae and EOM are normal. Pupils are equal, round, and reactive to light. Neck: Normal range of motion. Neck supple. No tracheal deviation present. No thyromegaly present. Cardiovascular: Normal rate, regular rhythm and normal heart sounds. Pulmonary/Chest: Effort normal and breath sounds normal. No respiratory distress. No wheezes. No rales. Abdominal: Soft. Bowel sounds are normal. No distension. There is no tenderness. Musculoskeletal: Normal range of motion. They exhibit no edema, tenderness or deformity. Neurological: Patient is alert and oriented to person, place, and time. Patient displays normal reflexes. No cranial nerve deficit. Skin: Skin is warm and dry. No rash noted. Psychiatric: Normal mood and affect. Behavior is normal. Lab/Radiology/Diagnostic Review: Recent Results (from the past 24 hour(s)) CBC with auto differential Collection Time: 08/01/17 4:32 AM Result Value Ref Range WBC 14.52 (H) 3.80 - 9.90 K/cumm RBC 4.69 3.90 - 5.20 M/cumm Hgb 12.8 11.9 - 15.5 g/dL Hct 40.6 35.6 - 45.5 % MCV 86.6 81.3 - 96.4 fL MCH 27.3 27.1 - 33.3 pg MCHC 31.5 (L) 32.3 - 35.7 g/dL RDW CV 15.0 (H) 11.1 - 14.9 % RDW SD 47.8 35.7 - 48.1 fL Platelets 365 150 - 400 K/cumm MPV 9.6 9.1 - 12.3 fL NRBC Abs 0.00 0.00 - 0.01 K/cumm Comprehensive metabolic panel Collection Time: 08/01/17 4:32 AM Result Value Ref Range Sodium 130 (L) 135 - 145 mmol/L Potassium 3.9 3.5 - 5.1 mmol/L CO2 24 22 - 32 mmol/L BUN 16 8 - 24 mg/dL Glucose 180 70 - 199 mg/dL Creatinine 0.79 0.60 - 1.30 mg/dL Calcium 9.4 8.4 - 10.5 mg/dL Chloride 98 (L) 100 - 114 mmol/L Albumin 3.5 3.2 - 4.8 g/dL AST 20 7 - 40 Units/L ALT 18 1 - 45 Units/L Alk phos 76 30 - 110 Units/L Bilirubin 0.70 0.10 - 1.30 mg/dL Protein, pl 8.9 (H) 6.0 - 8.3 g/dL Anion Gap 12 8 - 16 mmol/L Troponin I Collection Time: 08/01/17 4:32 AM Result Value Ref Range Troponin I 0.06 0.00 - 0.14 ng/mL Differential, auto Collection Time: 08/01/17 4:32 AM Result Value Ref Range Neutrophils 70.6 % Immature granulocytes 0.5 % Lymphocytes 18.8 % Monocytes 7.3 % Eosinophils 0.4 % Basophils 0.3 % Neutrophil absolute 10.26 (H) 1.70 - 6.50 K/cumm Immature granulocyte absolute 0.07 0.00 - 0.10 K/cumm Lymphocytes absolute 2.73 0.80 - 3.30 K/cumm Monocyte absolute 1.06 (H) 0.20 - 0.80 K/cumm Eosinophils absolute 0.36 0.00 - 0.50 K/cumm Basophils, abs 0.04 0.00 - 0.10 K/cumm eGFR Collection Time: 08/01/17 4:32 AM Result Value Ref Range GFR 81 mL/min/1.73 m2 Glucose POC Collection Time: 08/01/17 8:05 AM Result Value Ref Range Glucose, POC, bld 136 70 - 199 mg/dL Glucose POC Collection Time: 08/01/17 9:21 AM Result Value Ref Range Glucose, POC, bld 142 70 - 199 mg/dL Ct Abdomen Pelvis Without Contrast Result Date: 07/27/2017 Narrative: RESULT: EXAMINATION: CT ABDOMEN PELVIS WO CONTRAST Date: 07/27/2017 2:45 PM History: Rt sided abd pain, radiates to center of belly, n/v, abnormal weight loss; Hx of coreen and hernia repair Technique: Transaxial computed tomographic images of the abdomen and pelvis were obtained without the administration of intravenous contrast. Multiplanar coronal and sagittal images were reformatted. Comparison: 01/13/2017 Findings: Visualized lung bases are clear The liver, spleen, pancreas, adrenals kidneys appear within normal is. Bilateral nonobstructing renal calculi. 6 mm nonobstructing stone in the upper pole of the right kidney. 8 mm nonobstructing calculus in the lower pole of left kidney. Evidence of ventral abdominal wall hernia repair and anterior abdominal wall mesh work is seen in place. Sigmoid diverticulosis. Partially filled urinary bladder normal. Normal size uterus. A subcentimeter nabothian cyst in the cervix. Ovaries are atrophic. No bowel obstruction. A normal appendix visualized. Few normal sized lymph node in the mesentery of small bowel. 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 Impression: Unremarkable nonenhanced CT of the abdomen and pelvis. Bilateral nonobstructing renal calculi. Normal appendix. Electronically signed by: Bruce Lake M.D. Xr Chest 1 View Result Date: 08/01/2017 Narrative: RESULT: SINGLE VIEW CHEST: HISTORY: Shortness of breath FINDINGS: A single view of the chest demonstrates small scattered parenchymal and perihilar granulomatous calcifications. The cardiac and mediastinal outlines are unremarkable. There are no significant pleural effusions or pneumothorax. Calcific aortic change and degenerative spine changes are seen. Impression: NO ACUTE PULMONARY CHANGE Electronically signed by: Aguila Grijalva M.D. Xr Chest 1 View Result Date: 07/26/2017 Narrative: RESULT: EXAMINATION: XR CHEST 1 VIEW HISTORY: Dyspnea. Impression: Comparison is made to previous examination dated 01/30/2017. Lungs are well-expanded and clear. There is no pleural effusion. No pneumothorax. The heart size is upper limits of normal forportable technique. Unchanged prominence of the central pulmonary vasculature. No mediastinal widening Electronically signed by: Brando Restrepo M.D. Ct Chest Pe W Contrast Result Date: 07/27/2017 Narrative: RESULT: EXAMINATION: CT CHEST WITH INTRAVENOUS CONTRAST, PULMONARY EMBOLISM PROTOCOL Date: 07/27/2017 12:40 AM History: Shortness of breath Technique: Transaxial computed tomographic images of the chest were obtained after the administration of 97 mL Optiray 350 intravenously using a pulmonary embolism protocol. Multiplanar coronal and oblique images were reformatted. Comparison: Comparison is made to the CT chest PE protocol exam dated 09/11/2016. Findings: Mild bilateral dependent lung atelectasis is noted. The mild peripheral left upper lobe density is unchanged and may represent scarring or atelectasis. The lungs are free of acute infiltrates. There is no pneumothorax or pleural effusion. The heart size is normal. There is no evidence of central pulmonary arterial filling defect to suggest acute embolus. There is no evidence of thoracic aortic aneurysm or dissection. There is no pericardial effusion. Scattered mediastinal lymph nodes are subcentimeter. The thyroid gland has a heterogeneous appearance. The right thyroid lobe is larger than the left, possibly due to underlying nodule. Recommend dedicated thyroid ultrasound. There is no axillary lymphadenopathy. The bilateral breasts are absent. Degenerative changes involve the thoracic spine. The gallbladder is surgically absent. A 4 mm calculus is seen within the superior right renal pole. There is no evidence of hydronephrosis in the partially imaged kidney. 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 Impression: No evidence of acute pulmonary emboli. Heterogeneous thyroid. Recommend dedicated thyroid ultrasound. Right nephrolithiasis. A preliminary report was submitted by [facility] on 07/27/2017 at 2:09 AM. Electronically signed by: Prince House M.D. Assessment/Plan All assessments present on admission unless otherwise specified 1. Chest pressure: She has a LIN score of 1 and and intermediate Wellen pre- test probability for PE. [facility] in 2013 without significant CAD. Stress 11/02/16 with 65% of MPHR at [facility] in Care Everywhere. PE less likely as she has been on xarelto. Telemetry. MD has been ruled out via serial troponins ?? 2. CONS in blood with dry cough: suspect contaminant. Has bandemia. The ER has ordered repeat cultures. UA with reflex ordered. CXR looks okay but official read pending. ?? 3. Weight loss do nausea and vomiting-suspicious for gastroparesis. Will get small-bowel study. ?? 4. Still having CLAY accompanied with dizziness: rule out acute cardiac event. 5. DM: diet controlled. SSI here. ?? 6. LUL: RT for CPAP ?? 7. Chronic emesis: biopsy last admit normal. Thought due to diabetic gastroparesis, Has GI follow up. PPI. ?? 8. h/o DVT/PE: restart xarelto ? Full Code We need to keep the patient here until blood cultures are definitively clean this time. Principal Problem: Chest pressure Active Problems: Dyspnea Nausea and vomiting Positive blood culture Hyponatremia Diet-controlled diabetes mellitus (CMS/HCC) LUL (obstructive sleep apnea) History of DVT (deep vein thrombosis) History of pulmonary embolism Radha Liriano MD 08/01/2017 10:35 AM documented in this encounter H&P Notes * Remi Garza MD - 08/01/2017 6:05 AM CDT General Medicine History and Physical DATE OF SERVICE: 08/01/17 PRIMARY CARE PHYSICIAN: Dr. Lavonne Hathaway SUBJECTIVE: Patient is a 62 y.o. female with a chief complaint of chest pressure. HPI: I received a CONS blood culture result in [facility]. Suspected contaminant but called patient to see if she was stable. She stated she felt poor and wanted to come to the ER. She states that occurring last night she has had substernal chest pressure. It is moderate and intermittent lasting a few minutes. It once radiated to the back. Nothing makes it better or worse. It is accompanied by SOB but no dizziness, diaphoresis, palpitations, nausea. She has had occasional dry coughing spells. Otherwise she continues to have chronic emesis that is non-bloody. She has also had stable CLAY. She has some dizziness when she is SOB as would be expected. Past Medical History: Diagnosis Date ??? Adiposity [...] (See comments) Restless leg syndrome ??? Oxycodone Agitation Social History Substance Use Topics ??? Smoking status: Former Smoker ??? Smokeless tobacco: Never Used ??? Alcohol use No Family History Problem [...] Start Date End Date Taking? Authorizing Provider ciprofloxacin (CIPRO) 500 mg tablet Take 1 tablet (500 mg total) by mouth 2 (two) times a day for 5days. 07/28/17 08/02/17 Radha Liriano MD exemestane (AROMASIN) 25 mg tablet Take 25 mg by mouth daily. After a meal Historical Provider, HYDROcodone-acetaminophen (NORCO) 5-325 mg per tablet Take 1-2 tablets every 4 hours as needed for pain Patient taking differently: Take 1-2 tablets every 4 hours as needed for pain 02/24/17 Ko Melendez MD lisinopril (PRINIVIL,ZESTRIL) 20 mg tablet take 1 Tablet (20MG) by oral route every day Patient taking differently: Take 20 mg by mouth daily. 05/11/12 Radha Leyva DO omeprazole (PriLOSEC) 40 mg capsule Take 1 capsule (40 mg total) by mouth daily. 07/28/17 07/28/18 Radha Liriano MD oxybutynin (DITROPAN) 5 mg tablet take 1 tablet by oral route every day Patient taking differently: Take 5 mg by mouth daily. 12/12/13 Jcarlos Nails MD rivaroxaban (XARELTO) 10 mg tablet Take 10 mg by mouth daily. Historical Provider, rOPINIRole (REQUIP) 5 mg tablet take 1 tablet (5MG) by oral route every day at bedtime Patient taking differently: Take 5 mg by mouth nightly. 05/11/12 Radha Leyva DO Review of Systems Review of Systems Constitutional: Negative for fever. HENT: Negative for sore throat. Respiratory: Positive for cough and shortness of breath. Cardiovascular: Positive for chest pain. Gastrointestinal: Positive for vomiting. Negative for diarrhea. Genitourinary: Negative for dysuria and hematuria. Musculoskeletal: Negative for arthralgias. Skin: Negative for rash. Neurological: Negative for weakness and numbness. Psychiatric/Behavioral: Negative for agitation. OBJECTIVE: Vitals: Arrival Vitals [07/31/172216] Temp 36.4 ??C (97.6 ??F) Pulse 89 Resp 22 BP 126/70 SpO2 99 % Temp src Oral Heart Rate Source Monitor;Pulse Oximetry Patient Position Sitting BP Location Right arm FiO2 (%) Most Recent : Vitals: 07/31/177 08/01/17 0521 08/01/17 0528 BP: 126/70 102/79 BP Location: Right arm Right arm Patient Position: Sitting Lying Pulse: 89 80 79 Resp: 22 26 Temp: 36.4 ??C (97.6 ??F) 36.5 ??C (97.7 ??F) TempSrc: Oral Oral SpO2: 99% 98% Weight: 120.2 kg (265 lb) Height: 154.9 cm (5' 1 ) Physical exam: General appearance: appears stated age and cooperative Head: Normocephalic, without obvious abnormality, atraumatic Eyes: conjunctivae clear Neck: no JVD and supple, symmetrical, trachea midline Lungs: clear to auscultation bilaterally and no rubs Heart: Regular rate and rhythm, S1, S2 normal, 2/6 systolic murmur no click, rub, or gallop, chest pain reproducible on palpation Abdomen: soft, non-tender; no masses, no organomegaly Extremities: extremities normal warm and well-perfused Skin: Skin color texture, turgor normal. No rashes or lesions Neurologic: Alert and oriented x4, non-focal ?? Lab/Radiology/Diagnostic Review: Recent Results (from the past 24 hour(s)) CBC with auto differential Collection Time: 08/01/17 4:32 AM Result Value Ref Range WBC 14.52 (H) 3.80 - 9.90 K/cumm RBC 4.69 3.90 - 5.20 M/cumm Hgb 12.8 11.9 - 15.5 g/dL Hct 40.6 35.6 - 45.5 % MCV 86.6 81.3 - 96.4 fL MCH 27.3 27.1 - 33.3 pg MCHC 31.5 (L) 32.3 - 35.7 g/dL RDW CV 15.0 (H) 11.1 - 14.9 % RDW SD 47.8 35.7 - 48.1 fL Platelets 365 150 - 400 K/cumm MPV 9.6 9.1 - 12.3 fL NRBC Abs 0.00 0.00 - 0.01 K/cumm Comprehensive metabolic panel Collection Time: 08/01/17 4:32 AM Result Value Ref Range Sodium 130 (L) 135 - 145 mmol/L Potassium 3.9 3.5 - 5.1 mmol/L CO2 24 22 - 32 mmol/L BUN 16 8 - 24 mg/dL Glucose 180 70 - 199 mg/dL Creatinine 0.79 0.60 - 1.30 mg/dL Calcium 9.4 8.4 - 10.5 mg/dL Chloride 98 (L) 100 - 114 mmol/L Albumin 3.5 3.2 - 4.8 g/dL AST 20 7 - 40 Units/L ALT 18 1 - 45 Units/L Alk phos 76 30 - 110 Units/L Bilirubin 0.70 0.10 - 1.30 mg/dL Protein, pl 8.9 (H) 6.0 - 8.3 g/dL Anion Gap 12 8 - 16 mmol/L Troponin I Collection Time: 08/01/17 4:32 AM Result Value Ref Range Troponin I 0.06 0.00 - 0.14 ng/mL Differential, auto Collection Time: 08/01/17 4:32 AM Result Value Ref Range Neutrophils 70.6 % Immature granulocytes 0.5 % Lymphocytes 18.8 % Monos 7.3 % Eosinophils 0.4 % Basophils 0.3 % Neutrophil absolute 10.26 (H) 1.70 - 6.50 K/cumm Immature granulocyte, abs 0.07 0.00 - 0.10 K/cumm Lymphocytes, abs 2.73 0.80 - 3.30 K/cumm Monos, abs 1.06 (H) 0.20 - 0.80 K/cumm Eosinophils, abs 0.36 0.00 - 0.50 K/cumm Basophils, abs 0.04 0.00 - 0.10 K/cumm eGFR Collection Time: 08/01/17 4:32 AM Result Value Ref Range GFR 81 mL/min/1.[address] Abdomen Pelvis Without Contrast Result Date: 07/27/2017 Narrative: RESULT: EXAMINATION: CT ABDOMEN PELVIS WO CONTRAST Date: 07/27/2017 2:45 PM History: Rt sided abd pain, radiates to center of belly, n/v, abnormal weight loss; Hx of coreen and hernia repair Technique: Transaxial computed tomographic images of the abdomen and pelvis were obtained without the administration of intravenous contrast. Multiplanar coronal and sagittal images were reformatted. Comparison: 01/13/2017 Findings: Visualized lung bases are clear The liver, spleen, pancreas, adrenals kidneys appear within normal is. Bilateral nonobstructing renal calculi. 6 mm nonobstructing stone in the upper pole of the right kidney. 8 mm nonobstructing calculus in the lower pole of left kidney. Evidence of ventral abdominal wall hernia repair and anterior abdominal wall mesh work is seen in place. Sigmoid diverticulosis. Partially filled urinary bladder normal. Normal size uterus. A subcentimeter nabothian cyst in the cervix. Ovaries are atrophic. No bowel obstruction. A normal appendix visualized. Few normal sized lymph node in the mesentery of small bowel. 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 Impression: Unremarkable nonenhanced CT of the abdomen and pelvis. Bilateral nonobstructing renal calculi. Normal appendix. Electronically signed by: Bruce Lake M.D. Xr Chest 1 View Result Date: 07/26/2017 Narrative: RESULT: EXAMINATION: XR CHEST 1 VIEW HISTORY: Dyspnea. Impression: Comparison is made to previous examination dated 01/30/2017. Lungs are well-expanded and clear. There is no pleural effusion. No pneumothorax. The heart size is upper limits of normal forportable technique. Unchanged prominence of the central pulmonary vasculature. No mediastinal widening Electronically signed by: Brando Restrepo M.D. Ct Chest Pe W Contrast Result Date: 07/27/2017 Narrative: RESULT: EXAMINATION: CT CHEST WITH INTRAVENOUS CONTRAST, PULMONARY EMBOLISM PROTOCOL Date: 07/27/2017 12:40 AM History: Shortness of breath Technique: Transaxial computed tomographic images of the chest were obtained after the administration of 97 mL Optiray 350 intravenously using a pulmonary embolism protocol. Multiplanar coronal and oblique images were reformatted. Comparison: Comparison is made to the CT chest PE protocol exam dated 09/11/2016. Findings: Mild bilateral dependent lung atelectasis is noted. The mild peripheral left upper lobe density is unchanged and may represent scarring or atelectasis. The lungs are free of acute infiltrates. There is no pneumothorax or pleural effusion. The heart size is normal. There is no evidence of central pulmonary arterial filling defect to suggest acute embolus. There is no evidence of thoracic aortic aneurysm or dissection. There is no pericardial effusion. Scattered mediastinal lymph nodes are subcentimeter. The thyroid gland has a heterogeneous appearance. The right thyroid lobe is larger than the left, possibly due to underlying nodule. Recommend dedicated thyroid ultrasound. There is no axillary lymphadenopathy. The bilateral breasts are absent. Degenerative changes involve the thoracic spine. The gallbladder is surgically absent. A 4 mm calculus is seen within the superior right renal pole. There is no evidence of hydronephrosis in the partially imaged kidney. 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 Impression: No evidence of acute pulmonary emboli. Heterogeneous thyroid. Recommend dedicated thyroid ultrasound. Right nephrolithiasis. A preliminary report was submitted by [facility] on 07/27/2017 at 2:09 AM. Electronically signed by: Prince House M.D. EKbpm NSR. Compared to 07/27/17 - now with indeterminant axis, t-wave less pronounced in III andtwave abnormality in V3. ASSESSMENT/PLAN: Principal Problem: Chest pressure Active Problems: Positive blood culture Dyspnea Hyponatremia LUL (obstructive sleep apnea) Nausea and vomiting Diet-controlled diabetes mellitus (CMS/HCC) History of DVT (deep vein thrombosis) History of pulmonary embolism 1. Chest pressure: She has a LIN score of 1 and and intermediate Wellen pre- test probability for PE. [facility] in 2013 without significant CAD. Stress 11/02/16 with 65% of MPHR at [facility] in Care Everywhere. We don't have the full results of the 2017 stress test. We can rule her out for MD with serial troponins and get that stress result in the morning prior to pursing another inpatient. I will check a d-Dimer to rule out dissection and PE. However PE less likely as she has been on xarelto. Telemetry 2. CONS in blood with dry cough: suspect contaminant. Has bandemia. The ER has ordered repeat cultures. UA with reflex ordered. CXR looks okay but official read pending. 3. Hyponatremia: very slight, fluid restrict to 1.5L when diet started and follow. NPO except meds while we rule her out. 4. Still having CLAY accompanied with dizziness: rule out acute cardiac event. [facility] as it was just evaluated last admit. 5. DM: diet controlled. SSI here. 6. LUL: RT for CPAP 7. Chronic emesis: biopsy last admit normal. Thought due to diabetic gastroparesis, Has GI follow up. PPI. 8. h/o DVT/PE: restart xarelto once dissection is ruled out. dvt ppx: SCD while we rule out dissection Full Code ESTIMATED LENGTH OF STAY: Observation having stayed one midnight documented in this encounter Nursing Notes * Monika Guillaume RN - 08/03/2017 5:41 PM CDT Discharged home follow up instructions viewed with patient. Left unit via wheelchair in no acute distress. documented in this encounter ED Notes * Enmanuel Dubon MD - 08/01/2017 3:32 AM CDT HPI 3:33 AM: Mohsen Marques is a 62 y.o. female patient with a history of diabetes, HTN, DVT, cancer, and CHF, presenting to the ED complaining of SOB which began weeks ago. The patient was recently admitted to [facility] for evaluation of generalized weakness. The patient states she was called by , hospitalist, alejandra about a positive blood culture. The patient decided to present to theED as she is still SOB and feeling unwell. She denies chest pain, but reports a pushing sensationto her chest, as well as [id number] episodes of nausea. The patient denies history of pneumonia, MD, and stroke. She also denies smoking and alcohol use. There are no other complaints at this time. The patient was admitted to [facility], from 07/26/17 to 07/28/17. While admitted, thepatient was evaluated fot generalized weakness, dyspnea, unintentional weight loss, acute cystitis without hematuria, and nausea and vomiting. GI was consulted and an EGD was performed. She was recommended to follow up with Dr. Epifanio Rivera, GI, for biopsy results and gastric emptying study. Chief Complaint Patient presents with ??? Shortness of Breath for the past week ??? Nausea HPI Patient History Patient Active Problem List Diagnosis Date Noted ??? Essential hypertension ??? Generalized weakness 07/27/2017 ??? Dyspnea 07/27/2017 ??? Unintentional weight loss 07/27/2017 ??? Acute cystitis without hematuria 07/27/2017 ??? Nausea and vomiting 07/26/2017 ??? Restless legs syndrome 03/12/2013 Class: Chronic [...] are negative. Physical Exam ED Triage Vitals [07/31/17 2217] Temp Pulse Resp BP SpO2 36.4 ??C (97.6 ??F) 89 22 126/70 99 % Temp src Heart Rate Source Patient Position BP Location FiO2 (%) Oral Monitor;Pulse Oximetry Sitting Right arm -- Physical Exam Constitutional: She is oriented to person, place, and time. She appears well- developed. No distress. Obese female. HENT: Head: Normocephalic and atraumatic. Mouth/Throat: Oropharynx is clear and moist. Eyes: Conjunctivae and EOM are normal. Right eye [...] no rales. Abdominal: Soft. She exhibits no distension and no mass. There is no tenderness. No hernia. Musculoskeletal: Normal range of motion. [...] and vitals reviewed. ED Course & MDM ED Course as of Aug 01 534e Aug 01, 2017 0522 Temp: 36.4 ??C (97.6 ??F) [GG] ED Course User Index [GG] Enmanuel Dubon MD Labs Reviewed BLOOD CULTURE BLOOD CULTURE CBC WITH AUTO DIFFERENTIAL COMPREHENSIVE METABOLIC PANEL TROPONIN I URINALYSIS AND REFLEX TO MICROSCOPIC AND CULTURE XR Chest 1 View (Results Pending) BP 126/70 (BP Location: Right arm, Patient Position: Sitting) Pulse 89 Temp 36.4 ??C (97.6 ??F)(Oral) Resp 22 Ht 154.9 cm (5' 1 ) Wt 120.2 kg (265 lb) SpO2 99% BMI 50.07 kg/m?? MDM Chest pain, unspecified type Mariposa Bailey, scribed for Dr. Enmanuel Dubon MD in the provider's presence. I electronically signed this note at 3:49 AM on 08/01/2017. I, Dr. Enmanuel Dubon MD, have personally performed the services described in the documentation, reviewed the documentation, as recorded by the scribe in my presence, and it accurately and completely records my words and actions. Enmanuel Dubon MD 08/01/17 0515 Enamnuel Dubon MD 08/01/17 0535 * Margaret Barcenas RN - 07/31/2017 10:18 PM CDT Pt reports being called and told to come in due to positive blood cultures. Pt also reports continuing symptoms but not worsening. documented in this encounter Miscellaneous Notes * Plan of Care - Velma Le RN - 08/02/2017 5:13 AM CDT Activity: ??? Risk for activity intolerance will decrease Progressing Health Behavior: ??? Understanding of discharge needs will improve Progressing Health Behavior: ??? Ability to state signs and symptoms to report to health care provider will improve Progressing Infection Risk: ??? Will remain free from infection Progressing Lack of Knowledge: ??? Knowledge of diagnostic tests will improve Progressing ??? Knowledge of disease or condition will improve Progressing ??? Knowledge of safety precautions will improve Progressing ??? Knowledge of the prescribed therapeutic regimen will improve Progressing Physical Regulation: ??? Ability to maintain clinical measurements within normal limits will improve Progressing Safety: ??? Ability to remain free from injury will improve Progressing ??? Will remain free from falls Progressing Self-Care: ??? Ability to participate in self-care as condition permits will improve Progressing Sensory: ??? Pain level will decrease Progressing ??? Ability to develop a pain control plan will improve Progressing Skin Integrity: ??? Risk for impaired skin integrity will decrease Progressing Tissue Perfusion: ??? Risk factors for ineffective tissue perfusion will decrease Progressing Goals: Clinical Goals for the Shift: Remains pain-free Summary: patient continues to have mild to moderate abdominal pain relieved with pain medicine. * Plan of Care - Mckenzie Flower RN - 08/01/2017 5:06 PM CDT Ability to st Pain level will decrease Progressing ate signs and symptoms to report to health care provider will improve Progressing Will remain free from infection Progressing Knowledge of disease or condition will improve Progressing Knowledge of safety precautions will improve Progressing Goals: Clinical Goals for the Shift: Remains pain-free Summary: Patient medicated for pain as needed. Will be NPO for gastric emptying study. Patient is not to have po pain medications, but may have IV pain medications. Give only blood pressure medications in am. Will endorse this to night nurse. Monitored for changes in condition. documented in this encounter Plan of Treatment Not on file documented as of this encounter Procedures Procedure Name Priority Date/Time Associated Diagnosis Comments TRANSTHORACIC ECHO (TTE) COMPLETE W DOPPLER/CF WO CONTRAST Routine 08/03/2017 2:18 PM CDT GLUCOSE POC Routine 08/03/2017 12:[address] CHEST ABDOMEN W CONTRAST IP Routine 08/03/2017 9:07 AM CDT GLUCOSE POC Routine 08/03/2017 7:48 AM CDT URINE CULTURE Routine 08/03/2017 5:50 AM CDT DIFFERENTIAL AUTO Routine 08/03/2017 5:4 4 AM CDT GLUCOSE POC Routine 08/03/2017 5:44 AM CDT CBC WITH AUTO DIFFERENTIAL Routine 08/03/2017 5:44 AM CDT MAGNESIUM Routine 08/03/2017 5:44 AM CDT GLUCOSE POC Routine 08/03/2017 3:26 AM CDT GLUCOSE POC Routine 08/03/2017 12:39 AM CDT DISCHARGE LABORATORY CUMULATIVE REPORT 08/03/2017 12:00 AM CDT GLUCOSE POC Routine 08/02/2017 5:04 PM CDT GLUCOSE POC Routine 08/02/2017 2:35 PM CDT NM GASTRIC EMPTYING STUDY IP Routine 08/02/2017 2:17 PM CDT GLUCOSE POC Routine 08/02/2017 8:35 AM CDT DIFFERENTIAL AUTO Routine 08/02/2017 5:3 1 AM CDT CBC WITH AUTO DIFFERENTIAL Routine 08/02/2017 5:31 AM CDT MAGNESIUM Routine 08/02/2017 5:31 AM CDT GLUCOSE POC Routine 08/02/2017 3:19 AM CDT GLUCOSE POC Routine 08/01/2017 9:21 PM CDT GLUCOSE POC Routine 08/01/2017 5:51 PM CDT TROPONIN I Routine 08/01/2017 4:02 PM CDT GLUCOSE POC Routine 08/01/2017 12:44 PM CDT ECG 12-LEAD STAT 08/01/2017 12:34 PM CDT TROPONIN I Routine 08/01/2017 11:25 AM CDT D-DIMER, QUANTITATIVE Add-On 08/01/2017 11:25 AM CDT GLUCOSE POC Routine 08/01/2017 9:21 AM CDT GLUCOSE POC Routine 08/01/2017 8:05 AM CDT ECG 12-LEAD STAT 08/01/2017 5:09 AM CDT EGFR STAT 08/01/2017 4:32 AM CDT DIFFERENTIAL AUTO STAT 08/01/2017 4:3 2 AM CDT CBC WITH AUTO DIFFERENTIAL STAT 08/01/2017 4:32 AM CDT TROPONIN I STAT 08/01/2017 4:32 AM CDT COMPREHENSIVE METABOLIC PANEL STAT 08/01/2017 4:32 AM CDT BLOOD CULTURE Routine 08/01/2017 4:30 AM CDT BLOOD CULTURE Routine 08/01/2017 4:30 AM CDT XR CHEST 1 VIEW ED 08/01/2017 3:58 AM CDT documented in this encounter Results * TRANSTHORACIC ECHO (TTE) COMPLETE W DOPPLER/CF WO CONTRAST (08/03/2017 2:18 PM CDT) Anatomical Region Laterality Modality Ultrasound 08/03/2017 1:46 PM CDT Narrative 08/03/2017 4:25 [place] [address] Echocardiogram Report Patient Name: MOHSEN MARQUES : 1955 Study Date: 08/03/2017 1:46:17 PM Gender: F Tech: Location: [facility] Ref.Physician: Height(Cm): 155 BSA: 2.32 Weight(Kg): 125 Heart Rate: 87 BP: 103/64 Quality: Good Order Physician: Dr. Aceves Procedures: Echocardiographic Report: Transthoracic echocardiogram with complete 2D, M-Mode, and color Doppler examination. Indications: Chest Pain, Morbid Obesity, and Shortness of Breath. Measurements: 2D/M Mode ?Doppler ? Measurement ?Value ?Normal Range ? Measurement ?Value ?Normal Range ? EF Teich 2D ?60.0 ? [ 55.0 - 70.0 ] percent ?ELVIA Vmax ? 2.16 ? [ 2.00 - 4.00 ] cm2 ? EF Mod 4C ?74.6 ? [ 55.0 - 70.0 ] percent ?AV Mean PG ? 5 ?[ 2 - 4 ] mmHg ? LVIDd 2D ? 4.36 ? [ 3.90 - 5.30 ] cm ? AV Peak Singh ?1.67 ? [ 1.00 - 1.70 ] m/s ? LVIDs 2D ? 2.98 ? [ 2.30 - 3.90 ] cm ? AV VTI ? 28.96 ?cm ? LVPWd 2D ? 0.91 ? [ 0.60 - 1.00 ] cm ? LVOT Diam ?2.02 ? [ 1.70 - 2.10 ] cm ? IVSd 2D ?1.00 ? [ 0.60 - 0.90 ] cm ? LVOT Peak Singh ?1.12 ? [ 0.70 - 1.10 ] m/s ? LA Dimension MM ?3.64 ? [ 2.70 - 3.80 ] cm ? LVOT VTI ? 21.98 ?[ 20.00 - 30.00 ] cm ? AoR Diam MM ?2.53 ? [ 2.60 - 3.70 ] cm ? MV E Peak Singh ?0.92 ? [ 0.60 - 1.30 ] m/s ? LA Volume Index ?14.95 ?[ 16.00 - 28.00 ] cc/m2 ?MV A Peak Singh ?0.62 ? [ 1.00 - 1.20 ] m/s ? ACS MM ? 1.94 ? cm ? MV Mean PG ? 1 ?[ <= 5 ] mmHg ? MV PHT ? 62 ? [ 20 - 100 ] msec ? MVA ?2.90 ? MV Decel Time ?228 ?[ 104 - 258 ] msec ? PV Peak Singh ?1.09 ? [ 0.40 - 0.80 ] m/s ? TR Peak Singh ?2.53 ? [ 1.00 - 2.80 ] m/s ? TR Peak PG ? 26 ? mmHg ? RVSP ? 40.62 ?[ 10.00 - 36.00 ] mmHg ? E' ? 0.08 ? E/E' ? 11.00 ? Findings: Atrial Septum: Normal atrial septum. Left [...] Mchugh MD 2017-08-03 16:25:18 CDT CC: CC: Procedure Note Deepa Mchugh MD - 08/03/2017 [place] [address] Echocardiogram Report Patient Name: MOHSEN MARQUESPatient ID: [id number] : [id number] Date: 08/03/2017 1:46:17 PM Gender: FAccession #: [id number] Tech: SRLocation: [id number] Ref.Physician: Height(Cm): 155 BSA: 2.32Weight(Kg): 125 Heart Rate: 87BP: 103/64 Quality: GoodOrder Physician: Dr. Aceves Procedures: Echocardiographic Report: Transthoracic echocardiogram with complete 2D, M-Mode, and color Dopplerexamination. Indications: Chest Pain, Morbid Obesity, and Shortness of Breath. Measurements: 2D/M Mode Doppler Measurement Value Normal Range MeasurementValue Normal Range EF Teich 2D 60.0 [ 55.0 - 70.0 ] percent ELVIA Vmax2.16 [ 2.00 - 4.00 ] cm2 EF Mod 4C 74.6 [ 55.0 - 70.0 ] percent AV Mean PG 5[ 2 - 4 ] mmHg LVIDd 2D 4.36 [ 3.90 - 5.30 ] cm AV Peak Vel1.67 [ 1.00 - 1.70 ] m/s LVIDs 2D 2.98 [ 2.30 - 3.90 ] cm AV VTI28.96 cm LVPWd 2D 0.91 [ 0.60 - 1.00 ] cm LVOT Diam2.02 [ 1.70 - 2.10 ] cm IVSd 2D 1.00 [ 0.60 - 0.90 ] cm LVOT Peak Vel1.12 [ 0.70 - 1.10 ] m/s LA Dimension MM 3.64 [ 2.70 - 3.80 ] cm LVOT VTI21.98 [ 20.00 - 30.00 ] cm AoR Diam MM 2.53 [ 2.60 - 3.70 ] cm MV E Peak Vel0.92 [ 0.60 - 1.30 ] m/s LA Volume Index 14.95 [ 16.00 - 28.00 ] cc/m2 MV A Peak Vel0.62 [ 1.00 - 1.20 ] m/s ACS MM 1.94 cm MV Mean PG 1[ <= 5 ] mmHg MV PHT 62[ 20 - 100 ] msec MVA2.90 MV Decel [id number] [ 104 - 258 ] msec PV Peak Vel1.09 [ 0.40 - 0.80 ] m/s TR Peak Vel2.53 [ 1.00 - 2.80 ] m/s TR Peak PG 26mmHg RVSP40.62 [ 10.00 - 36.00 ] mmHg E'0.08 E/E'11.00 Findings: Atrial Septum: Normal atrial septum. Left Ventricle: Normal left ventricular systolic function with no focal wall motionabnormalities. Normal left ventricular wall thickness. Normal left ventricular diastolicfunction. Ejection fraction is visually estimated at 60 %. Left Atrium: The left atrium is normal in size. Right Ventricle: Normal right ventricular size. Normal right ventricular systolicfunction. Right Atrium: The right atrium is normal in size. Aortic Valve: Normal structure of the aortic valve. Mitral Valve: Mild mitral annular calcification. Pulmonic Valve: Normal structure of the pulmonic valve. Tricuspid Valve: Mild pulmonary hypertension based on right ventricular systolic pressure.Estimated peak RVSP is 40 mmHg. Mild tricuspid regurgitation. Pericardium: Normal pericardium with no significant pericardial effusion. Aorta: Normal aortic root. IVC: Normal size and normal respiratory collapse consistent with normal rightatrial pressure (<5 mmHg). Pulmonary Artery: Normal pulmonary artery size. Conclusions: Normal left ventricular systolic function with no focal wall motionabnormalities. Normal left ventricular wall thickness. Normal left ventricular diastolicfunction. Ejection fraction is visually estimated at 60 %. Mild mitral annular calcification. Mild pulmonary hypertension based on right ventricular systolic pressure.Estimated peak RVSP is 40 mmHg. Mild tricuspid regurgitation. Electronically Signed By: Gómez Mchugh MD 2017-08-03 16:25:18 CDT CC: CC: Result [facility] Elo Aceves MD CV ECHO PROCEDURES Final Result * Glucose POC (08/03/2017 12:17 PM CDT) Glucose, POC 160 70 - 199 mg/dL MARY JANE Blood specimen (specimen) 08/03/2017 12:17 PM CDT 08/03/2017 12:17 PM CDT Narrative MARY JANE - 08/03/2017 12:19 PM CDT Elo Aceves MD POINT OF CARE TEST ORDERABLES Final Result MARY JNAE ARNOLD [id number] [place] [address] * CT Chest Abdomen W Contrast (08/03/2017 9:07 AM CDT) Anatomical Region Laterality Modality Body N/A Computed Tomogra phy Impressions 08/03/2017 10:09 AM CDT 1. ??NO EVIDENCE OF ACTIVE CARDIOPULMONARY DISEASE. 2. ??CHOLECYSTECTOMY. 3. ??NONOBSTRUCTING CALCULUS IN THE UPPER POLE OF THE RIGHT KIDNEY. 4. ??NO CHANGE FROM THE STUDY PERFORMED ONE WEEK AGO. Electronically signed by: Jimmie Paiz M.D. Narrative 08/03/2017 10:09 AM CDT RESULT: HISTORY: Dyspnea and dizziness. EXAMINATION: CT CHEST ABDOMEN W CONTRAST DATE: 08/03/2017 9:00 AM COMPARISON: 07/27/2017 TECHNIQUE: Transaxial computed tomographic images of the chest and abdomen were obtained following the intravenous administration of 92 mL Optiray 350. Multiplanar coronal and sagittal images were reformatted. CT CHEST: The lungs are well-expanded and clear. ??No evidence of an infiltrate or pulmonary nodule. ??No evidence of a pneumothorax or pleural effusion. ??The heart size is normal. ??No evidence of mediastinal or hilar adenopathy. CT ABDOMEN: The liver, pancreas and spleen appear normal. ??The gallbladder has been removed. ??No evidence of free air or free fluid in the abdomen. There is a 5 mm nonobstructing calculus in the upper pole of the right kidney. ??The kidneys and adrenal glands are otherwise unremarkable. ??No evidence of retroperitoneal adenopathy. ??The abdominal aorta is unremarkable. ??No evidence of bowel obstruction. Procedure Note Jimmie Paiz MD - 08/03/2017 RESULT: HISTORY: Dyspnea and dizziness. EXAMINATION: CT CHEST ABDOMEN W CONTRAST DATE: 08/03/2017 9:00 AM COMPARISON: 07/27/2017 TECHNIQUE: Transaxial computed tomographic images of the chest and abdomen were obtained following the intravenous administration of 92 mL Optiray 350. Multiplanar coronal and sagittal images were reformatted. CT CHEST: The lungs are well-expanded and clear. No evidence of an infiltrate or pulmonary nodule. No evidence of a pneumothorax or pleural effusion. The heart size is normal. No evidence of mediastinal or hilar adenopathy. CT ABDOMEN: The liver, pancreas and spleen appear normal. The gallbladder has been removed. No evidence of free air or free fluid in the abdomen. There is a 5 mm nonobstructing calculus in the upper pole of the right kidney. The kidneys and adrenal glands are otherwise unremarkable. No evidence of retroperitoneal adenopathy. The abdominal aorta is unremarkable. No evidence of bowel obstruction. IMPRESSION: 1. NO EVIDENCE OF ACTIVE CARDIOPULMONARY DISEASE. 2. CHOLECYSTECTOMY. 3. NONOBSTRUCTING CALCULUS IN THE UPPER POLE OF THE RIGHT KIDNEY. 4. NO CHANGE FROM THE STUDY PERFORMED ONE WEEK AGO. Electronically signed by: Jimmie Paiz M.D. Elo Aceves MD IMG CT PROCEDURES F inal Result * Glucose POC (08/03/2017 7:48 AM CDT) Pathologist [facility] Glucose, POC 173 70 - 199 mg/dL MARY JANE ARNOLD Blood specimen (specimen) 08/03/2017 7:48 AM CDT 08/03/2017 7:48 AM CDT Narrative MARY JANE ARNOLD - 08/03/2017 7:52 AM CDT lEo Aceves MD POINT OF CARE TEST ORDERABLES Final Result MARY JANE ARNOLD [id number] [place] [address] * Urine culture Urine, bladder (08/03/2017 5:50 AM CDT) Report Final Report: Insignifican t growth based on current clinical standards. MARY JANE ARNOLD Comment:Testing performed by : [facility], [address], [place]., [address] Urine, bladder 08/03/2017 5: 50 AM CDT 08/03/2017 7:52 AM CDT Narrative [facility] - 08/04/2017 9:16 AM CDT Indications for Culture:->Recent positive UA Elo Aceves MD LAB MICROBIOLOGY - GENERAL ORDERABLES Final Result MARY JANE [id number] [place] [address] * (ABNORMAL) Differential, auto (08/03/2017 5:44 AM CDT) Neutrophil abs 7.1(H) 1.7 - 6.5 K/cumm [facility] Imm gran abs 0.0 0.0 - 0.1 K/cumm [facility] Lymphocyte abs 2.5 0.8 - 3.3 K/cumm [facility] Monocyte abs 0.7 0.2 - 0.8 K/cumm [facility] Eosinophil abs 0.4 0.0 - 0.5 K/cumm [facility] Basophil abs 0.0 0.0 - 0.1 K/cumm [facility] Neutrophil pct 65.6 % [facility] Comment: Interpretive Data Percent cell count reference ranges are not reported, since discordance with absolute values may lead to misinterpretation of CBC data. Current Interpretive Data was last revised on 2017. Imm gran pct 0.4 % [facility] Comment: Interpretive Data Percent cell count reference ranges are not reported, since discordance with absolute values may lead to misinterpretation of CBC data. Current Interpretive Data was last revised on 2017. Lymphocyte pct 23.4 % [facility] Comment: Interpretive Data Percent cell count reference ranges are not reported, since discordance with absolute values may lead to misinterpretation of CBC data. Current Interpretive Data was last revised on 2017. Monocyte pct 6.8 % [facility] Comment: Interpretive Data Percent cell count reference ranges are not reported, since discordance with absolute values may lead to misinterpretation of CBC data. Current Interpretive Data was last revised on 2017. Eosinophil pct 3.4 % [facility] Comment: Interpretive Data Percent cell count reference ranges are not reported, since discordance with absolute values may lead to misinterpretation of CBC data. Current Interpretive Data was last revised on 2017. Basophil pct 0.4 % [facility] Comment: Interpretive Data Percent cell count reference ranges are not reported, since discordance with absolute values may lead to misinterpretation of CBC data. Current Interpretive Data was last revised on 2017. Blood specimen (specimen) 08/03/2017 5:44 AM CDT 08/03/2017 5:56 AM CDT Narrative [facility] - 08/03/2017 6:06 AM CDT Remi Garza MD LAB BLOOD ORDERABLES F inal Result Performing Organization Address City/[facility]/ZIP Co de Phone Number [facility] [id number] [place] [address] * Glucose POC (08/03/2017 5:44 AM CDT) Pathologist [facility] Glucose, POC 163 70 - 199 mg/dL [facility] Blood specimen (specimen) 08/03/2017 5:44 AM CDT 08/03/2017 5:44 AM CDT Narrative [facility] - 08/03/2017 5:47 AM CDT Elo Aceves MD POINT OF CARE TEST ORDERABLES Final Result Performing Organization Address [facility] Co de Phone Number [facility] [id number] [place] [address] * (ABNORMAL) CBC with auto differential (08/03/2017 5:44 AM CDT) WBC 10.86(H) 3.80 - 9.90 K/cumm [facility] RBC 3.95 3.90 - 5.20 M/cumm [facility] Hgb 10.8(L) 11.9 - 15.5 g/dL [facility] Hct 34.6(L) 35.6 - 45.5 % [facility] MCV 87.6 81.3 - 96.4 fL [facility] MCH 27.3 27.1 - 33.3 pg [facility] MCHC 31.2(L) 32.3 - 35.7 g/dL [facility] RDW CV 15.2(H) 11.1 - 14.9 % [facility] RDW SD 48.8(H) 35.7 - 48.1 fL [facility] 297 150 - 400 K/cumm [facility] MPV 9.9 9.1 - 12.3 fL [facility] NRBC abs 0.00 0.00 - 0.01 K/cumm [facility] Blood specimen (specimen) 08/03/2017 5:44 AM CDT 08/03/2017 5:56 AM CDT Narrative [facility] - 08/03/2017 6:06 AM CDT Remi Garza MD LAB BLOOD ORDERABLES F inal Result Performing Organization Address [facility] Co de Phone Number [facility] [phone] [place] [address] * Magnesium (08/03/2017 5:44 AM CDT) Magnesium 1.9 1.8 - 2.6 mg/dL [facility] Blood specimen (specimen) 08/03/2017 5:44 AM CDT 08/03/2017 6:01 AM CDT Narrative [facility] - 08/03/2017 6:21 AM CDT Remi Garza MD LAB BLOOD ORDERABLES F inal Result Performing Organization Address [facility] Co de Phone Number [facility] [address] [place] [address] * Glucose POC (08/03/2017 3:26 AM CDT) Glucose, POC 151 70 - 199 mg/dL [facility] Blood specimen (specimen) 08/03/2017 3:26 AM CDT 08/03/2017 3:26 AM CDT Narrative [facility] - 08/03/2017 3:27 AM CDT Elo Aceves MD POINT OF CARE TEST ORDERABLES Final Result MARY JANE ARNOLD [address] [place] [address] * Glucose POC (08/03/2017 12:39 AM CDT) Glucose, POC 161 70 - 199 mg/dL [facility] Blood specimen (specimen) 08/03/2017 12:39 AM CDT 08/03/2017 12:39 AM CDT Narrative MARY JANE - 08/03/2017 12:40 AM CDT Elo Aceves MD POINT OF CARE TEST ORDERABLES Final Result Performing Organization Address [facility] Co de Phone Number MARY JANE ARNOLD [address] [place] [address] * DISCHARGE LABORATORY CUMULATIVE REPORT (08/03/2017 12:00 AM CDT) Narrative 08/03/2017 12:00 AM CDT Ordered by an unspecified provider. Historical Provider LAB BLOOD ORDERABLES Deann l Result * Glucose POC (08/02/2017 5:04 PM CDT) Glucose, POC 151 70 - 199 mg/dL MARY JANE Blood specimen (specimen) 08/02/2017 5:04 PM CDT 08/02/2017 5:04 PM CDT Narrative MARY JANE - 08/02/2017 5:05 PM CDT Elo Aceves MD POINT OF CARE TEST ORDERABLES Final Result Performing Organization Address City/[facility]/ZIP Co de Phone Number MARY JANE ARNOLD [address] [place] [address] * Glucose POC (08/02/2017 2:35 PM CDT) Glucose, POC 116 70 - 199 mg/dL MARY JANE [place]ALINA Blood specimen (specimen) 08/02/2017 2:35 PM CDT 08/02/2017 2:35 PM CDT Narrative MARY JANE ARNOLD - 08/02/2017 2:36 PM CDT Elo Aceves MD POINT OF CARE TEST ORDERABLES Final Result MARY JANE [address] [place] [address] * NM Gastric Emptying Study (08/02/2017 2:17 PM CDT) Anatomical Region Laterality Modality Body N/A Nuclear Medicine Impressions 08/03/2017 8:47 AM CDT No evidence of gastroparesis. Electronically signed by: Sara Burk M.D. Narrative 08/03/2017 8:47 AM CDT EXAM: Nuclear medicine gastric emptying study DATE: 08/02/2017 7:55 AM CLINICAL HISTORY: Abdominal pain TECHNIQUE: After the uneventful oral administration of ??1 mCi technetium 99m sulfur colloid in a scrambled egg vehicle with 2 pieces of toast, strawberry jam and 8 ounces water, anterior and posterior images of the stomach were obtained every the immediate, 1 hour, 2 hour and 4 hour time frames. ??Comparison was made to a CT abdomen and pelvis from 07/27/2017. FINDINGS: In the immediate timeframe, 100% of activity remained in the stomach lumen. ??At the 1 hour timeframe, 66% of activity remained in the stomach lumen. ??At the 2 hour timeframe, 45% of activity remained in the stomach lumen. At the 4 hour timeframe, 5% of activity remained in the stomach lumen. ??Gastric emptying half-life is 121 minutes, which is normal. Procedure Note Sara Burk MD - 08/03/2017 EXAM: Nuclear medicine gastric emptying study DATE: 08/02/2017 7:55 AM CLINICAL HISTORY: Abdominal pain TECHNIQUE: After the uneventful oral administration of 1 mCi technetium 99m sulfur colloid in a scrambled egg vehicle with 2 pieces of toast, strawberry jam and 8 ounces water, anterior and posterior images of the stomach were obtained every the immediate, 1 hour, 2 hour and 4 hour time frames. Comparison was made to a CT abdomen and pelvis from 07/27/2017. FINDINGS: In the immediate timeframe, 100% of activity remained in the stomach lumen. At the 1 hour timeframe, 66% of activity remained in the stomach lumen. At the 2 hour timeframe, 45% of activity remained in the stomach lumen. At the 4 hour timeframe, 5% of activity remained in the stomach lumen. Gastric emptying half-life is 121 minutes, which is normal. IMPRESSION: No evidence of gastroparesis. Electronically signed by: Sara Burk M.D. us Radha Liriano MD IMG NM PROCEDURES Final R esult * Glucose POC (08/02/2017 8:35 AM CDT) Glucose, POC 148 70 - 199 mg/dL [facility] Blood specimen (specimen) 08/02/2017 8:35 AM CDT 08/02/2017 8:35 AM CDT Narrative [facility] - 08/02/2017 8:37 AM CDT us Elo Aceves MD POINT OF CARE TEST ORDERABLES Final Result [facility] [address] [place] [address] * (ABNORMAL) Differential, auto (08/02/2017 5:31 AM CDT) Neutrophil abs 6.53(H) 1.70 - 6.50 K/cumm [facility] Imm gran abs 0.0 0.0 - 0.1 K/cumm [facility] Lymphocyte abs 2.9 0.8 - 3.3 K/cumm [facility] Monocyte abs 0.9(H) 0.2 - 0.8 K/cumm [facility] Eosinophil abs 0.4 0.0 - 0.5 K/cumm [facility] Basophil abs 0.0 0.0 - 0.1 K/cumm [facility] Neutrophil pct 60.5 % MARY JANE Comment: Interpretive Data Percent cell count reference ranges are not reported, since discordance with absolute values may lead to misinterpretation of CBC data. Current Interpretive Data was last revised on 2017. Imm gran pct 0.4 % AMRY JANE Comment: Interpretive Data Percent cell count reference ranges are not reported, since discordance with absolute values may lead to misinterpretation of CBC data. Current Interpretive Data was last revised on 2017. Lymphocyte pct 26.6 % MARY JANE Comment: Interpretive Data Percent cell count reference ranges are not reported, since discordance with absolute values may lead to misinterpretation of CBC data. Current Interpretive Data was last revised on 2017. Monocyte pct 8.3 % MARY JANE Comment: Interpretive Data Percent cell count reference ranges are not reported, since discordance with absolute values may lead to misinterpretation of CBC data. Current Interpretive Data was last revised on 2017. Eosinophil pct 3.8 % MARY JANE Comment: Interpretive Data Percent [...] last revised on 2017. Blood specimen (specimen) 08/02/2017 5:31 AM CDT 08/02/2017 5:40 AM CDT Narrative MARY JANE - 08/02/2017 5:52 AM CDT us Remi Garza MD LAB BLOOD ORDERABLES F inal Result MARY JANE [id number] [place] [address] * (ABNORMAL) CBC with auto differential (08/02/2017 5:31 AM CDT) WBC 10.78(H) 3.80 - 9.90 K/cumm [facility] RBC 3.97 3.90 - 5.20 M/cumm [facility] Hgb 10.7(L) 11.9 - 15.5 g/dL [facility] Hct 35.4(L) 35.6 - 45.5 % [facility] MCV 89.2 81.3 - 96.4 fL [facility] MCH 27.0(L) 27.1 - 33.3 pg [facility] MCHC 30.2(L) 32.3 - 35.7 g/dL [facility] RDW CV 15.3(H) 11.1 - 14.9 % [facility] RDW SD 50.3(H) 35.7 - 48.1 fL [facility] Plt 300 150 - 400 K/cumm [facility] MPV 9.9 9.1 - 12.3 fL [facility] NRBC abs 0.00 0.00 - 0.01 K/cumm [facility] Blood specimen (specimen) 08/02/2017 5:31 AM CDT 08/02/2017 5:40 AM CDT Narrative [facility] - 08/02/2017 5:52 AM CDT Remi Garza MD LAB BLOOD ORDERABLES F inal Result Performing Organization Address [facility] Co de Phone Number MARY JANE [phone] [place] [address] * (ABNORMAL) Magnesium (08/02/2017 5:31 AM CDT) Magnesium 1.7(L) 1.8 - 2.6 mg/dL [facility] Blood specimen (specimen) 08/02/2017 5:31 AM CDT 08/02/2017 5:40 AM CDT Narrative [facility] - 08/02/2017 5:59 AM CDT Remi Garza MD LAB BLOOD ORDERABLES F inal Result Performing Organization Address [facility]/ZIP Co de Phone Number [facility] [address] [place], [place] [id number] * Glucose POC (08/02/2017 3:19 AM CDT) Glucose, POC 149 70 - 199 mg/dL [facility] Blood specimen (specimen) 08/02/2017 3:19 AM CDT 08/02/2017 3:19 AM CDT Narrative [facility] - 08/02/2017 3:20 AM CDT us Radha Liriano MD POINT OF CARE TEST ORDERA BLES Final Result Performing Organization Address City/[facility]/ZIP Co de Phone Number MARY JANE ARNOLD [phone] [address] [facility] [place] [address] * (ABNORMAL) Glucose POC (08/01/2017 9:21 PM CDT) Glucose, POC 211(H) 70 - 199 mg/dL [facility] Blood specimen (specimen) 08/01/2017 9:21 PM CDT 08/01/2017 9:21 PM CDT Narrative [facility] - 08/01/2017 9:22 PM CDT us Radha Liriano MD POINT OF CARE TEST ORDERA BLES Final Result Performing Organization Address [facility] Co de Phone Number BCPUJA ARNOLD [address] [address] [facility] [place] [address] * Glucose POC (08/01/2017 5:51 PM CDT) Glucose, POC 113 70 - 199 mg/dL [facility] Blood specimen (specimen) 08/01/2017 5:51 PM CDT 08/01/2017 5:51 PM CDT Narrative [facility] - 08/01/2017 5:58 PM CDT us Radha Liriano MD POINT OF CARE TEST ORDERA BLES Final Result Performing Organization Address City/[facility]/ZIP Co de Phone Number BCPUJA ARNOLD [address] [address] Department [employer] [place], [place] [id number] * Troponin I (08/01/2017 4:02 PM CDT) [facility] Troponin I <0.03 0.00 - 0.14 ng/mL [facility] Comment: Interpretive Data Normal: ? 0.00 - 0.14 ng/mL Indeterminate: ?0.15 - 0.50 ng/mL MD / Cardiac Muscle Damage: ? >0.50 ng/mL Current interpretive data was last reviewed 2015 Blood specimen (specimen) 08/01/2017 4:02 PM CDT 08/01/2017 4:13 PM CDT Narrative [facility] - 08/01/2017 4:53 PM CDT us Remi Garza MD LAB BLOOD ORDERABLES F inal Result Performing Organization Address City/[facility]/ZIP Co de Phone Number [facility] [phone] [address] [place] [address] * Glucose POC (08/01/2017 12:44 PM CDT) [facility] Glucose, POC 155 70 - 199 mg/dL [facility] Blood specimen (specimen) 08/01/2017 12:44 PM CDT 08/01/2017 12:44 PM CDT Narrative [facility] - 08/01/2017 12:56 PM CDT us Radha Liriano MD POINT OF CARE TEST ORDERA BLES Final Result Performing Organization Address [facility] Co de Phone Number [facility] [address] [address] [facility] [place] [employer] [address] * ECG 12 lead (08/01/2017 12:34 PM CDT) [facility] Patient age 62 years [facility] Interpretation Text SINUS RHYTHMNORMAL ECGPREVIOUS TRACIN08/01/2017 05.09No significant change compared to prior ECG [facility] Comment:Physician Interprete r Dr. Humberto Armas M.D. Ventricular Rate EKG/Min 77 /min [facility] P Wave Duration 106 ms [facility] QRS-Interval (MSEC) 83 ms [facility] CO-Interval (MSEC) 130 ms [facility] QT Interval 379 ms [facility] QTc 408 ms [facility] QTC Interval ms [facility] P [place] 17 deg [facility] QRS [place] 19 deg [facility] T [place] 56 deg [facility] 08/01/2017 12:3 4 PM CDT Enmanuel Dubon MD ECG ORDERABLES Final Resul t Performing Organization Address [facility] Co de Phone Number [facility] * (ABNORMAL) D-dimer, quantitative (08/01/2017 11:25 AM CDT) D-dimer <150(L) 150 - 230 ng/mL D-DU MARY JANE Comment: Interpretive Data This D-dimer test is approved by the FDA to exclude suspected PE and DVT in outpatients when the result is <230 ng/ml D-DU in conjunction with a pre-test probability score of low or moderate using the Wells Criteria. Current Interpretive Data was last revised on 2015. Blood specimen (specimen) 08/01/2017 11:25 AM CDT 08/01/2017 11:28 AM CDT Narrative MARY JANE - 08/01/2017 1:01 PM CDT Remi Garza MD LAB BLOOD ORDERABLES F inal Result Performing Organization Address City/[facility]/ZIP Co de Phone Number [facility] [phone] [address] [place] [address] * Troponin I (08/01/2017 11:25 AM CDT) Troponin I <0.03 0.00 - 0.14 ng/mL MARY JANE Comment: Interpretive Data Normal: ? 0.00 - 0.14 ng/mL Indeterminate: ?0.15 - 0.50 ng/mL MD / Cardiac Muscle Damage: ? >0.50 ng/mL Current interpretive data was last reviewed 2015 Blood specimen (specimen) 08/01/2017 11:25 AM CDT 08/01/2017 11:28 AM CDT Narrative [facility] - 08/01/2017 12:16 PM CDT Remi Garza MD LAB BLOOD ORDERABLES F inal Result Performing Organization Address [facility] de Phone Number [facility] [address] [address] [facility] [place] [address] * Glucose POC (08/01/2017 9:21 AM CDT) Glucose, POC 142 70 - 199 mg/dL [facility] Blood specimen (specimen) 08/01/2017 9:21 AM CDT 08/01/2017 9:21 AM CDT Narrative [facility] - 08/01/2017 9:28 AM CDT Radha Liriano MD POINT OF CARE TEST ORDERA BLES Final Result Performing Organization Address [facility] de Phone Number [facility] [address] [address] [place] [address] * Glucose POC (08/01/2017 8:05 AM CDT) Glucose, POC 136 70 - 199 mg/dL [facility] Blood specimen (specimen) 08/01/2017 8:05 AM CDT 08/01/2017 8:05 AM CDT Narrative [facility] - 08/01/2017 8:06 AM CDT Remi Garza MD POINT OF CARE TEST ORD ERABLES Final Result Performing Organization Address [facility] Co de Phone Number [facility] [address] [address] [place] [address] * ECG 12 lead (08/01/2017 5:09 AM CDT) Pathologist [facility] Patient age 62 years [facility] Interpretation Text SINUS RHYTHMNONSPECIFIC T-WAVE ABNORMALITYBORDERLINE ECGPREVIOUS TRACIN07/26/2017 19.12No significant changes noted [facility] Comment:Physician Interprete r Dr. Opal Koo M.D. Ventricular Rate EKG/Min 84 /min [facility] P Wave Duration 110 ms [facility] QRS-Interval (MSEC) 81 ms [facility] CO-Interval (MSEC) 132 ms [facility] QT Interval 373 ms [facility] QTc 415 ms [facility] QTC Interval ms [facility] P [place] 7 deg [facility] QRS [place] 12 deg [facility] T [place] 33 deg [facility] 08/01/2017 5:09 AM CDT us Enmanuel Dubon MD ECG ORDERABLES Final Resul t [facility] [place] * eGFR (08/01/2017 4:32 AM CDT) Pathologist [facility] eGFR 81 mL/min/1.7 3 m2 [facility] Comment: Interpretive Data Reference Interval Normal ?>/= 90 mL/min/1.73m2 Mildly decreased* ? 60 - 89 mL/min/1.73m2 Mildly to moderately decreased ?45 - 59 mL/min/1.73m2 Moderately to severely decreased ??30 - 44 mL/min/1.73m2 Severely decreased ?15 - 29 mL/min/1.73m2 Kidney Failure ?< 15 ??mL/min/1.73m2 *Relative to young adult level If -South African multiply value by 1.16. Estimated glomerular filtration [...] was last reviewed 2015. Blood specimen (specimen) 08/01/2017 4:32 AM CDT 08/01/2017 4:40 AM CDT Narrative [facility] - 08/01/2017 5:05 AM CDT Enmanuel Dubon MD LAB BLOOD ORDERABLES Final Result MARY JANE ARNOLD [address] [address] [place] [address] * (ABNORMAL) Differential, auto (08/01/2017 4:32 AM CDT) Neutrophil pct 70.6 % [facility] Imm gran pct 0.5 % [facility] Lymphocyte pct 18.8 % [facility] Monocyte pct 7.3 % [facility] Eosinophil pct 0.4 % [facility] Basophil pct 0.3 % [facility] Neutrophil abs 10.26(H) 1.70 - 6.50 K/cumm [facility] Imm gran abs 0.07 0.00 - 0.10 K/cumm [facility] Lymphocyte abs 2.73 0.80 - 3.30 K/cumm [facility] Monocyte abs 1.06(H) 0.20 - 0.80 K/cumm [facility] Eosinophil abs 0.36 0.00 - 0.50 K/cumm [facility] Basophil abs 0.04 0.00 - 0.10 K/cumm [facility] Blood specimen (specimen) 08/01/2017 4:32 AM CDT 08/01/2017 4:35 AM CDT Narrative [facility] - 08/01/2017 4:44 AM CDT Enmanuel Dubon MD LAB BLOOD ORDERABLES Final Result Performing Organization Address [facility]/ZIP Co de Phone Number MARY JANE ARNOLD [address] [address] [place] [address] * Troponin I (08/01/2017 4:32 AM CDT) Pathologist [facility] Troponin I 0.06 0.00 - 0.14 ng/mL [facility] Comment: Interpretive Data Normal: ? 0.00 - 0.14 ng/mL Indeterminate: ?0.15 - 0.50 ng/mL MD / Cardiac Muscle Damage: ? >0.50 ng/mL Current interpretive data was last reviewed 2015 Blood specimen (specimen) 08/01/2017 4:32 AM CDT 08/01/2017 4:35 AM CDT Narrative [facility] - 08/01/2017 5:05 AM CDT Enmanuel Dubon MD LAB BLOOD ORDERABLES Edited Result - Final Performing Organization Address [facility] Co de Phone Number MARY JANE ARNOLD [address] [address] [place] [address] * (ABNORMAL) Comprehensive metabolic panel (08/01/2017 4:32 AM CDT) Pathologist [facility] Sodium 130(L) 135 - 145 mmol/L [facility] Potassium, pl 3.9 3.5 - 5.1 mmol/L [facility] CO2 24 22 - 32 mmol/L [facility] BUN 16 8 - 24 mg/dL [facility] Glucose 180 70 - 199 mg/dL [facility] Comment: Interpretive Data Fasting glucose >/= [...] interpretive data was last revised 2017. Creatinine 0.79 0.60 - 1.30 mg/dL [facility] Calcium 9.4 8.4 - 10.5 mg/dL [facility] Chloride 98(L) 100 - 114 mmol/L [facility] Albumin 3.5 3.2 - 4.8 g/dL [facility] AST 20 7 - 40 Units/L [facility] ALT 18 1 - 45 Units/L [facility] Alk phos 76 30 - 110 Units/L [facility] Bilirubin, total 0.70 0.10 - 1.30 mg/dL [facility] Protein, pl 8.9(H) 6.0 - 8.3 g/dL [facility] Anion gap 12 8 - 16 mmol/L [facility] Blood specimen (specimen) 08/01/2017 4:32 AM CDT 08/01/2017 4:35 AM CDT Narrative [facility] - 08/01/2017 5:05 AM CDT us Enmanuel Dubon MD LAB BLOOD ORDERABLES Final Result [facility] [id number] [address] [place] [address] * (ABNORMAL) CBC with auto differential (08/01/2017 4:32 AM CDT) WBC 14.52(H) 3.80 - 9.90 K/cumm [facility] RBC 4.69 3.90 - 5.20 M/cumm [facility] Hgb 12.8 11.9 - 15.5 g/dL [facility] Hct 40.6 35.6 - 45.5 % [facility] MCV 86.6 81.3 - 96.4 fL [facility] MCH 27.3 27.1 - 33.3 pg [facility] MCHC 31.5(L) 32.3 - 35.7 g/dL [facility] RDW CV 15.0(H) 11.1 - 14.9 % [facility] RDW SD 47.8 35.7 - 48.1 fL [facility] Plt 365 150 - 400 K/cumm MARY JANE MPV 9.6 9.1 - 12.3 fL MARY JANE NRBC abs 0.00 0.00 - 0.01 K/cumm [facility] Blood specimen (specimen) 08/01/2017 4:32 AM CDT 08/01/2017 4:35 AM CDT Narrative MARY JANE ARNOLD - 08/01/2017 4:44 AM CDT Enmanuel Dubon MD LAB BLOOD ORDERABLES Final Result MARY JANE [address] [address] Department of Laboratories [place] [phone] * Blood culture Blood (08/01/2017 4:30 AM CDT) Report Final Report: No growth MARY JANE Comment:Testing performed by : [facility], [address] [place]., [address] Blood specimen (specimen) 08/01/2017 4:30 AM CDT 08/01/2017 7:28 AM CDT Johnathan MARY JANE - 08/06/2017 12:00 PM CDT From a different site than [...] organism identification may be performed using the WAKU WAKU ? Nanosphere Gram Positive Blood Culture Assay. ??The Nanosphere assay detects microbial DNA in positive blood culture broth via hybridization of target DNA to capture oligonucleotides on a microarray. ??This assay has been cleared by the [place] Food and Drug Administration and its performance characteristics have been verified by the [facility] Microbiology Laboratory. Current Interpretive Data was last revised on 2013. Enmanuel Dubon MD LAB MICROBIOLOGY - GENERAL ORDERABLES Final Result Performing Organization Address City/[facility] Co de Phone Number MARY JANE ARNOLD [address] [address] Department [place] [address] * Blood culture Blood (08/01/2017 4:30 AM CDT) Report Final Report: No growth MARY JANE ARNOLD Comment:Testing performed by : [facility], [address] [facility], [place]., [address] Blood specimen (specimen) 08/01/2017 4:30 AM CDT 08/01/2017 6:26 AM CDT Narrative MARY JANE ARNOLD - 08/06/2017 12:00 PM CDT Blood cultures are incubated for five [...] organism identification may be performed using the WAKU WAKU ? Nanosphere Gram Positive Blood Culture Assay. ??The Nanosphere assay detects microbial DNA in positive blood culture broth via hybridization of target DNA to capture oligonucleotides on a microarray. ??This assay has been cleared by the [place] Food and Drug Administration and its performance characteristics have been verified by the [facility]. Current Interpretive Data was last revised on 2013. Enmanuel Dubon MD LAB MICROBIOLOGY - GENERAL ORDERABLES Final Result Performing Organization Address [facility] Co de Phone Number MARY JANE ARNOLD [address] [address] [place] [address] * XR Chest 1 View (08/01/2017 3:58 [...] CHANGE Electronically signed by: Aguila Grijalva M.D. us Enmanuel Dubon MD IMG XR PROCEDURES Final Res ult documented in this encounter Visit Diagnoses Diagnosis Chest pressure- Primary Other chest pain Chest pain, unspecified type Dyspnea Other dyspnea and respiratory abnormality Nausea and vomiting Nausea with vomiting Positive blood culture Hyponatremia Hyposmolality and/or hyponatremia Diet-controlled diabetes mellitus (CMS/[facility]) ([facility]) LUL (obstructive sleep apnea) Obstructive sleep apnea (adult) (pediatric) History of DVT (deep vein thrombosis) History of pulmonary embolism Personal history of venous thrombosis and embolism Chronic anticoagulation Encounter for long-term (current) use of anticoagulants Restless leg syndrome Restless legs syndrome (RLS) documented in this encounter Administered Medications Inactive Administered Medications - up to 3 most recent administrations Medication Order MAR Action Action Date Dose Rate Site aspirin chewable tablet 324 mg 324 mg, oral, Once, On Mon08/01/17 at 1145, For 1 dose, Indications: Acute Coronary SyndromeIndications:Acute Coronary Syndrome Given 08/01/2017 1:03 PM CDT 324 mg ciprofloxacin (CIPRO) tablet 500 mg 500 mg, oral, 2 times daily, First dose on Mon08/01/17 at 1145, For 1 day, Administer ciprofloxacin at least 2 hours before or 6 hours after antacids (containing aluminum or magnesium), calcium or calcium containing foods such as milk or yogurt, MVI (containing iron or zinc), iron, zinc, sucralfate or buffered meds such as didanosine., Indications: Urinary Tract/Genitourinary InfectionIndications:Urinary Tract/Genitourinary Infection Given 08/01/2017 9:23 PM CDT 500 mg Given 08/01/2017 1:04 PM CDT 500 mg dextrose 50% (concentrated solution) CONCENTRATED solution 25 g 25 g, intravenous, Every 15 min PRN, low blood sugar, blood glucose less than 70 mg/dL, Starting on Mon08/01/17 at 1103, If patient is NPO or unresponsive, give dextrose 50% IV Push over 2 minutes., Indications: HypoglycemiaIndications:Hypoglycemia dextrose oral liquid liquid 15 g 15 g, oral, Every 15 min PRN, low blood sugar, blood glucose less than 70 mg/dL, Starting on Mon08/01/17 at 1103, If patient is alert and able to eat/drink, give 15 gram glucose or one juice (4 fluid ounces) NOT ORANGE JUICE exemestane (AROMASIN) tablet 25 mg 25 mg, oral, Daily, First dose on Mon08/01/17 at 1145 Given 08/03/2017 9:40 AM CDT 25 mg Given 08/01/2017 6:42 PM CDT 25 mg glucagon injection 1 mg 1 mg, intramuscular, Every 30 min PRN, low blood sugar, blood glucose less than 70 mg/dL, Starting on Mon08/01/17 at 1103, If patient has no IV access and not alert, given Glucagon IM then follow with either oral glucose or IV dextrose treatment., Indications: HypoglycemiaIndications:Hypoglycemia HYDROcodone-acetaminophen (NORCO) 5-325 mg per tablet 1 tablet 1 tablet, oral, Every 4 hours PRN, 1st line for pain, Starting on Mon08/01/17 at 1103, Indications: PainIndications:Pain Given 08/03/2017 2:44 PM CDT 1 tablet Given 08/03/2017 1:03 AM CDT 1 tablet Given 08/02/2017 3:57 PM CDT 1 tablet insulin lispro (HumaLOG) injection 1-2 Units 1-2 Units, subcutaneous, Every 4 hours scheduled, First dose on Mon08/01/17 at 1200, Blood Sugar Low Dose NPO patients 200 or less No Insulin 201 - 250 1 unit 251 - 299 2 units 299 or more Call MD for hyperglycemia management instructions Do NOT hold for NPO status., Indications: Diabetes MellitusIndications:Diabetes Mellitus Given 08/01/2017 9:24 PM CDT 1 Units Left Upper Abdomen ioversol (OPTIRAY 350) syringe syringe 100 mL 100 mL, intravenous, Once in imaging, contrast, Starting on Valeri 08/03/17 at 0902, For 1 dose Given 08/03/2017 9:07 AM CDT 92 mL lisinopril (PRINIVIL,ZESTRIL) tablet 20 mg 20 mg, oral, Daily, First dose on Mon08/01/17 at 1145 Given 08/03/2017 9:38 AM CDT 20 mg Given 08/02/2017 8:36 AM CDT 20 mg Given 08/01/2017 1:03 PM CDT 20 mg magnesium sulfate 2 gram/50 mL (4 %) premix IVPB 2 g 2 g, intravenous, Administer over 60 Minutes, Once, On Mon08/02/17 at 1500, For 1 dose New Bag 08/02/2017 2:38 PM CDT 2 g morphine injection 2 mg 2 mg, intravenous, Once, On Mon08/02/17 at 2300, For 1 dose Given 08/02/2017 10:35 PM CDT 2 mg morphine injection 4 mg 4 mg, intravenous, Once, On Mon08/01/17 at 0400, For 1 dose Given 08/01/2017 4:56 AM CDT 4 mg morphine injection 4 mg 4 mg, intravenous, Every 3 hours PRN, other, chest pain unrelieved by nitrates (can give with nitrates), Starting on Mon08/01/17 at 0702 Given 08/02/2017 12:43 AM CDT 4 mg Given 08/01/2017 9:13 PM CDT 4 mg Given 08/01/2017 3:14 PM CDT 4 mg ondansetron (ZOFRAN) injection 4 mg 4 mg, intravenous, Once, On Mon08/01/17 at 0400, For 1 dose Given 08/01/2017 4:56 AM CDT 4 mg ondansetron (ZOFRAN) injection 4 mg 4 mg, intravenous, Every 4 hours PRN, nausea, vomiting, Starting on Mon08/02/17 at 1428 Given 08/03/2017 2:20 PM CDT 4 mg Given 08/02/2017 10:40 PM CDT 4 mg Given 08/02/2017 10:36 PM CDT 4 mg oxybutynin (DITROPAN) tablet 5 mg 5 mg, oral, Daily, First dose on Mon08/01/17 at 1145 Given 08/03/2017 9:35 AM CDT 5 mg Given 08/01/2017 6:42 PM CDT [address] (PROTONIX) extended release tablet 40 mg 40 mg, oral, Daily, First dose on Mon08/01/17 at 1145, Do not crush or chew, Indications: Treatment of Non-Bleeding Gastric DisorderIndications:Treatment of Non-Bleeding Gastric Disorder Given 08/03/2017 9:35 AM CDT 40 mg rOPINIRole (REQUIP) tablet 5 mg 5 mg, oral, Nightly, First dose on Mon08/01/17 at 2100 Given 08/02/2017 10:36 PM CDT 5 mg Given 08/01/2017 9:13 PM CDT 5 mg sodium chloride 0.9% infusion 125 mL/hr, intravenous, Continuous, Starting on Mon08/01/17 at 0400 New Bag 08/01/2017 4:56 AM CDT 125 mL/hr 125 mL/hr sodium chloride 0.9% infusion 30 mL/hr, intravenous, Continuous, Starting on Mon08/01/17 at 1145 Rate/Dose Verify 08/02/2017 5:12 AM CDT 30 mL/hr 30 mL/hr Rate/Dose Verify 08/02/2017 12:43 AM CDT 30 mL/hr 30 mL/ hr Rate/Dose Verify 08/01/2017 9:23 PM CDT 30 mL/hr 30 mL/h r [id number] sulfur colloid egg injection 1 millicurie 1 millicurie, oral, Once in imaging, radiopharmaceutical, Starting on Mon08/02/17 at 1000 Given 08/02/2017 2:18 PM CDT 1 millicurie documented in this encounter Discontinued Medications Medication Sig Discontinue Reason Start Date End Da te HYDROcodone-acetaminop hen (NORCO) 5-325 mg per tabletIndications:Pain Take 1-2 tablets every 4 hours as needed for pain Stop Taking at Discharge 02/24/2017 08/03/2017 ciprofloxacin (CIPRO) 500 mg tabletIndications:Urin sloane Tract/Genitourinary Infection Take 1 tablet (500 mg total) by mouth 2 (two) times a day for 5 days. Stop Taking at Discharge 07/28/2017 08/03/2017 documented as of this encounter Historical Medications * This list may reflect changes made after this encounter. sitaGLIPtin-metfo rmin (JANUMET) 50-1,000 mg per tablet Take 1 tablet by mouth daily. 11/06/2017 added in this encounter Active and Recently Administered Medications Times are shown in CDT. Scheduled Medication Order 08/01/2017 08/02/2017 08/03/2017 aspirin chewable tablet 324 mg (COMPLETED) 324 mg, oral, Once, On Mon08/01/17 at 1145, For 1 dose, Indications: Acute Coronary Syndrome 1303 (Given - Provider: Mckenzie Flower RN) ciprofloxacin (CIPRO) tablet 500 mg (COMPLETED) 500 mg, oral, 2 times daily, First dose on Mon08/01/17 at 1145, For 1 day, Administer ciprofloxacin at least 2 hours before or 6 hours after antacids (containing aluminum or magnesium), calcium or calcium containing foods such as milk or yogurt, MVI (containing iron or zinc), iron, zinc, sucralfate or buffered meds such as didanosine., Indications: Urinary Tract/Genitourinary Infection 1304 (Given - Provider: Mckenzie Flower RN)2122 (Given - Provider: Velma eL RN) exemestane (AROMASIN) tablet 25 mg 25 mg, oral, Daily, First dose on Mon08/01/17 at 1145 1842 (Given - Provider: Mckenzie Flower RN) 0831 (Not Given - Provider: Astrid Conroy RN - Reason: NPO) 0940 (Given - Provider: Monika Guillaume RN) insulin lispro (HumaLOG) injection 1-2 Units 1-2 Units, subcutaneous, Every 4 hours scheduled, First dose on Mon08/01/17 at 1200, Blood Sugar Low Dose NPO patients 200 or less No Insulin 201 - 250 1 unit 251 - 299 2 units 299 or more Call MD for hyperglycemia management instructions Do NOT hold for NPO status., Indications: Diabetes Mellitus 1304 (Not Given - Provider: Mckenzie Flower RN - Reason: Order parameters not met)1842 (Not Given - Provider: Mckenzie Flower RN - Reason: Order parameters not met)2123 (Given - Provider: Velma Le RN)2247 (Not Given - Provider: Velma Le RN - Reason: Order parameters not met) 0512 (Not Given - Provider: Velma Le RN - Reason: Order parameters not met)0832 (Not Given - Provider: Astrid Conroy RN - Reason: NPO)1428 (Not Given - Provider: Astrid Conroy RN - Reason: NPO)1708 (Not Given - Provider: Astrid Conroy RN - Reason: Order parameters not met - Comment: BS 151) 0040 (Not Given - Provider: Jaky Love RN - Reason: Order parameters not met)0041 (Not Given - Provider: Jaky Love RN - Reason: Order parameters not met)0607 (Not Given - Provider: Jaky Love RN - Reason: Order parameters not met)0938 (Not Given - Provider: Monika Guillaume RN - Reason: NPO)1434 (Not Given - Provider: Monika Guillaume RN - Reason: Other)1600 (Due) lisinopril (PRINIVIL,ZESTRIL) tablet 20 mg 20 mg, oral, Daily, First dose on Mon08/01/17 at 1145 1303 (Given - Provider: Mckenzie Flower RN) 0836 (Given - Provider: Astrid Conroy, NURIS) 0938 (Given - Provider: Monika Guillaume RN) magnesium sulfate 2 gram/50 mL (4 %) premix IVPB 2 g (COMPLETED) 2 g, intravenous, Administer over 60 Minutes, Once, On Mon08/02/17 at 1500, For 1 dose 1438 (New Bag - Provider: Astrid Conroy, RN)1724 (Stopped - Provider: Astrid Conroy, NURIS) morphine injection 2 mg (COMPLETED) 2 mg, intravenous, Once, On Mon08/02/17 at 2300, For 1 dose 2235 (Given - Provider: Jaky Love RN) morphine injection 4 mg (COMPLETED) 4 mg, intravenous, Once, On Mon08/01/17 at 0400, For 1 dose 0456 (Given - Provider: Noe Ortiz) ondansetron (ZOFRAN) injection 4 mg (COMPLETED) 4 mg, intravenous, Once, On e 08/01/17 at 0400, For 1 dose 0456 (Given - Provider: Noe Ortiz) oxybutynin (DITROPAN) tablet 5 mg 5 mg, oral, Daily, First dose on e 08/01/17 at 1145 1842 (Given - Provider: Mckenzie Flower RN) 0832 (Not Given - Provider: Astrid Conroy RN - Reason: NPO) 0935 (Given - Provider: Monika Guillaume, RN) pantoprazole DR (PROTONIX) extended release tablet 40 mg 40 mg, oral, Daily, First dose on Mon08/01/17 at 1145, Do not crush or chew, Indications: Treatment of Non-Bleeding Gastric Disorder 1515 (Not Given - Provider: Mckenzie Flower RN - Reason: See Provider Order) 0832 (Not Given - Provider: Astrid Conroy RN - Reason: NPO) 0935 (Given - Provider: Monika Guillaume RN) rOPINIRole (REQUIP) tablet 5 mg 5 mg, oral, Nightly, First dose on Mon08/01/17 at 2100 2113 (Given - Provider: Velma Le RN) 2236 (Given - Provider: Jaky Love RN) Continuous Medication Order 08/01/2017 08/02/2017 08/03/2017 sodium chloride 0.9% infusion (CANCELED) 125 mL/hr, intravenous, Continuous, Starting on Mon08/01/17 at 0400 0456 (New Bag - Provider: Noe Ortiz) sodium chloride 0.9% infusion (CANCELED) 30 mL/hr, intravenous, Continuous, Starting on e 08/01/17 at 1145 1846 (New Bag - Provider: Mckenzie Flower RN)1917 (Not Given - Provider: Mckenize Flower RN - Reason: Contraindicated)2123 (Rate/Dose Verify - Provider: Velma Le RN) 0043 (Rate/Dose Verify - Provider: Velma Le RN)0512 (Rate/Dose Verify - Provider: Velma Le RN) PRN Medication Order 08/01/2017 08/02/2017 08/03/2017 dextrose 50% (concentrated solution) CONCENTRATED solution 25 g 25 g, intravenous, Every 15 min PRN, low blood sugar, blood glucose less than 70 mg/dL, Starting on Mon08/01/17 at 1103, If patient is NPO or unresponsive, give dextrose 50% IV Push over 2 minutes., Indications: Hypoglycemia dextrose oral liquid liquid 15 g 15 g, oral, Every 15 min PRN, low blood sugar, blood glucose less than 70 mg/dL, Starting on Mon08/01/17 at 1103, If patient is alert and able to eat/drink, give 15 gram glucose or one juice (4 fluid ounces) NOT ORANGE JUICE glucagon injection 1 mg 1 mg, intramuscular, Every 30 min PRN, low blood sugar, blood glucose less than 70 mg/dL, Starting on Mon08/01/17 at 1103, If patient has no IV access and not alert, given Glucagon IM then follow with either oral glucose or IV dextrose treatment., Indications: Hypoglycemia HYDROcodone-acetaminoph en (NORCO) 5-325 mg per tablet 1 tablet 1 tablet, oral, Every 4 hours PRN, 1st line for pain, Starting on Mon08/01/17 at 1103, Indications: Pain 2247 (Given - Provider: Velma Le RN) 1557 (Given - Provider: Astrid Conroy, NURIS) 0103 (Given - Provider: Jaky Love RN)1444 (Given - Provider: Monika Guillaume RN - Comment: abd) ioversol (OPTIRAY 350) syringe syringe 100 mL (COMPLETED) 100 mL, intravenous, Once in imaging, contrast, Starting on Valeri 08/03/17 at 0902, For 1 dose 0907 (Given - Provider: Kip Fletcher, Gwendolyn-RT - Comment: PURGE) morphine injection 4 mg (CANCELED) 4 mg, intravenous, Every 3 hours PRN, other, chest pain unrelieved by nitrates (can give with nitrates), Starting on Mon08/01/17 at 0702 0714 (Given - Provider: Remi Ba RN)1514 (Given - Provider: Mckenzie Flower RN)2113 (Given - Provider: Velma Le, RN) 0043 (Given - Provider: Velma Le, RN) nitroglycerin (NITROSTAT) sublingual tablet 0.4 mg 0.4 mg, sublingual, Every 5 min PRN, chest pain, Starting on Mon08/01/17 at 1103, For 3 doses, Notify MD and obtain EKG if no relief after 3 doses or angina recurs. HOLD and notify MD if SBP less than 90 mmHg., Indications: Angina ondansetron (ZOFRAN) injection 4 mg 4 mg, intravenous, Every 4 hours PRN, nausea, vomiting, Starting on Mon08/02/17 at 1428 1436 (Given - Provider: Astrid Conroy, RN)2236 (Given - Provider: Jaky Love, NURIS)2240 (Given - Provider: Jaky Love RN) 1420 (Given - Provider: Monika Guillaume RN) tc-99m sulfur colloid egg injection 1 millicurie 1 millicurie, oral, Once in imaging, radiopharmaceutical, Starting on Mon08/02/17 at 1000 1418 (Given - Provider: Sheba Betancur, R-RT) documented in this encounter Orders Medications Ordered That Tyler ht Not Have Been Administered Count Last Ordered Date First Ordered Date dextrose 50% (concentrated s olution) CONCENTRATED solution 25 g 1 08/01/2017 dextrose oral liquid liquid 15 g 1 08/02/19 18 glucagon injection 1 mg 1 08/01/2017 nitroglycerin (NITROSTAT) parrish blingual tablet 0.4 mg 1 08/01/2017 Lab Orders Without Results Count Last Ordered D ate First Ordered Date POCT GLUCOSE DEVICE 2 08/01/2017 Diet Count Last Ordered Date First Orde red Date ADULT DISCHARGE DIET 1 08/03/2017 Nursing Count Last Ordered Date First Orde red Date DISCHARGE INSTRUCTIONS 2 08/03/2017 FOLLOW UP PRIMARY PHYSICIAN 1 08/03/2017 FOLLOW UP WITH PROVIDER 2 08/03/2017 CARDIAC OUTPUT MONITORING 1 08/01/2017 WEIGH PATIENT 1 08/01/2017 IV Count Last Ordered Date First Orde red Date SALINE LOCK IV 1 08/01/2017 Admission Count Last Ordered Date First Orde red Date ASSIGN PATIENT STATUS 2 08/01/2017 Discharge Count Last Ordered Date First Orde red Date DISCHARGE PATIENT 1 08/03/2017 CORE MEASURES Count Last Ordered Date First Ord ered Date REASON FOR NO VTE PROPHYLAXI S - HOSPITAL ADMISSION - MEDICATIONS 1 08/01/2017 ADT Patient Update Count Last Ordered Date Firs t Ordered Date ED IP DECISION TO ADMIT 1 08/01/2017 documented in this encounter Care Teams Broke Man Relationship Specialty Start Date End Date Lavonne Hathaway MD [facility] [place] [address] PCP - General 08/16/16 08/17/17 Liu Jerez MD [facility] [place] [address] Consulting Physician Gastroenterology 07/28/17 [place] [address] [facility] [address] [place] [address] Consulting Physician Pulmonary Disease 08/03/17 documented as of this encounter
--- OUTSIDE RECORDS SUMMARY | 2024-04-26 04:28 | XMS_ITS | Encounter Summary ---
Author Organization [facility] Healthcare Address [address] [place] [address] Care Team Providers Care Demo Specialist Name Role Phone Liu Jerez MD Unavailable Albert Corbin MD Unavailable [phone] Justen Gale MD Primary Care Provider Khris Arthur MD Unavailable [phone] Ko Melendez MD Unavailable [phone] John Paul Moyer MD Unavailable [phone] Encounter Details Date Type Department Care Team (Latest Contact Info) Description 10/27/2017 9:23 AM CDT - 10/27/2017 11:59 PM CDT Hospital Encounter [facility] [id number] [place] [address] Discharge Disposition: Discharge to home [...] on file Legal Sex Female 12:24 AM [employer]ANNING 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 [employer]PER[employer] Gender Identity Not on file Sexual [...] on filedocumented in this encounter Care Teams Demo Specialist Relationship Specialty Start Date End Date Justen Gale MD [address] [facility] [address] [place] [address] PCP - General 10/09/17 Liu Jerez MD Consulting Physician Gastroenterology 07/28/17 [place] [id number] [facility] [address] [place] [address] Consulting Physician Pulmonary Disease 08/03/17 Khris Arthur MD [address] [facility] [address] [place] [address] Medical Oncologist/Rail Car Repairman Medical Oncology 10/23/17 [place] [address] [facility] [address] [place] [address] Surgeon Orthopedic Surgery 10/23/17 [place] [address] [address] Consulting Physician Pain Management 10/23/17 documented as of this encounter
--- OUTSIDE RECORDS SUMMARY | 2024-04-26 04:28 | XMS_ITS | Encounter Summary ---
Author Organization [facility] Healthcare Address [address] [place] [address] Care Team Providers Care Information Security Risk Analyst Name Role Phone Liu Jerez MD Unavailable [phone] Albert Corbin MD Unavailable Justen Gale MD Primary Care Provider Khris Arthur MD Unavailable [phone] Ko Melendez MD Unavailable [phone] John Paul Moyer MD Unavailable [phone] Reason for Visit * Reason Comments Back Pain Has appointment upco rhoda with neurologist, but reports pain is uncontrolled. Encounter Details Date Type Department Care Team (Late st Contact Info) Description 10/22/2017 9:48 PM CDT - 10/23/2017 5:21 PM CDT Emergency [facility] [address] [place] [address] Erick Davis MD [address] [place] [address] [address] [place] [address] [place] [address] [facility] [address] [place], [place] [id number] [place] [address] 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 Gender Identity Not on file Sexual Orientation Not on file documented as of this encounter Last Filed Vital Signs Vital Sign Reading Time Taken Comments Blood Pressure 109/65 10/23/2017 3:00 PM CDT Pulse 81 10/23/2017 3:00 PM CDT Temperature 36.7 ??C (98.1 ??F) 10/23/2017 3:00 PM CD T Respiratory Rate 17 10/23/2017 3:00 PM CDT Oxygen Saturation 98% 10/23/2017 3:00 PM CDT Inhaled Oxygen Concentration - - Weight 126.8 kg (279 lb 8.7 oz) 10/23/2017 1:59 AM CDT Height 154.9 cm (5' 1 ) 10/23/2017 1:59 AM CDT Body Mass Index 52.82 10/23/2017 1:59 AM CDT documented in this encounter Discharge Summaries * Elo Aceves MD - 10/23/2017 4:47 PM CDT Inpatient Discharge Summary Admitting Provider: Sony Bullard MD Discharge Provider: Elo Aceves MD Primary Care Physician at Discharge: Justen Gale MD [phone] Date Of Service: 10/23/2017 Admission Date: 10/22/2017 Discharge Date: 10/23/2017 Discharge Diagnosis: Pulmonary embolism (CMS/HCC) Acute left-sided low back pain with left-sided sciatica Type 2 diabetes mellitus without long-term current use of insulin ([facility]) Essential hypertension Long-term current use of opiate analgesic H/o breast cancer on aromasin Constipation likely exacerbated by narcotics DETAILS OF HOSPITAL STAY Hospital Course: Patient is a pleasant 62 year old female admitted with low back pain radiating down her left leg. She has been seeing Dr. Melendez for this issue but has not seen him in a while, she had an outpatient appointment to see him 10-24-17 but the pain got so bad that she presented to the emergency room for evaluation. She states she has been doing some gardening but no history of trauma. She was supposed to have an open MRI spine in the past but this did not get done. She was seen by Dr. Melendez who referred her to pain management.Patient recently completed antibiotics for a UTI 10-22-17. Patient was seenby Dr. Moyer who recommends epidural steroid injection-however patient will have to hold her Xarelto for 48 hours-she is aware of risk of thrombosis off Xarelto and risk of bleeding with Xarelto. Sheis aware about avoiding NSAIDS with Xarelto to minimize risk of bleeding. Discussed with Dr. Dequan Moyer -plan is steroid injection 10-30-17 and outpatient open MRI spine to be arranged by Dr. Melendez's office. Outpatient PT/OT. Patient is ok to be discharged home with gabapentin, norco (tolerates this in spite of allergy to oxycodone and has been taking this at home too)-25 tablets prescribed, flexeril prn. She will come back to the emergency room if pain is unbearable at home. Previous Ct spine 10-09 showed bulging lumbar disks. Patient takes Miralax at home for her constipation. Test Results Pending at Discharge: None Operative Procedures Performed: None Other Procedures: None Pertinent Test Results: Ct Lumbar Spine Wo Contrast Result Date: [...] Aguila Grijalva M.D. Recent Labs Lab Units 10/22/17 2330 WHITE BLOOD CELLS K/cumm 11.0* HEMOGLOBIN g/dL 11.6* HEMATOCRIT % 37.7 PLATELETS K/cumm 334 Recent Labs Lab Units 10/23/17 1224 10/22/17 2330 SODIUM mmol/L -- -- 137 POTASSIUM PLASMA mmol/L -- -- 4.3 CHLORIDE mmol/L -- -- 103 CO2 mmol/L -- -- 29 ANIONGAP mmol/L -- -- 9 GLUCOSE mg/dL -- -- 273* POC GLUCOSE MONITOR mg/dL 255* < > -- BUN SERUM mg/dL -- -- 15 CREATININE mg/dL -- -- 0.84 CALCIUM mg/dL -- -- 9.4 < > = values in this interval not displayed. Physical Exam at Discharge: Discharge Condition: fair Vitals: 10/23/17 0505 10/23/17 0805 10/23/17 1100 10/23/17 1500 BP: 108/63 112/56 107/57 109/65 BP Location: Right arm Left arm Right arm Patient Position: Lying Lying Pulse: 83 78 81 Resp: Temp: 36.4 ??C (97.6 ??F) 36.5 ??C (97.7 ??F) 36.7 ??C (98.1 ??F) TempSrc: Oral Oral Oral SpO2: 97% 100% 98% Weight: Height: Physical exam: Gen:Well built female Lungs:Symmetrical breath sounds b/l Heart:s1,S2 heard Abdomen:Soft, NT, BS+ Extremities:No edema b/l LE Neuro:Alert, awake, oriented to self and surroundings, is able to move all extremities, has been ambulating from his bed to the bathroom with her cane Back:Some pain on palpation lumbar area-improved with pain medications Discharge Disposition: Disposition: Home. Code Status at [...] Low fat intake Other (specify) Explanatory Comment: 1800 calorie consistent carb Other Instructions Call provider for: Temperature -Temperature [...] CHANGED Details exemestane (AROMASIN) 25 mg tablet Take 25 [...] Qty: 527 g, Refills: 0 rivaroxaban (XARELTO) 10 mg tablet Take 10 mg by mouth daily. rOPINIRole (REQUIP) 5 mg tablet take 1 tablet (5MG) by oral route every day at bedtime Refills: 0 sitaGLIPtin-metformin (JANUMET) 50-1,000 mg per tablet Take 1 tablet by mouth. Current Discharge Medication List CONTINUE these medications which have CHANGED Details HYDROcodone-acetaminophen (NORCO) 5-325 mg per tablet Take 1 tablet by mouth every 8 (eight) hours as needed for pain (1 tablet for mild to moderate pain or 2 tablets for severe pain). Do not exceed 8 tablets/day. Qty: 25 tablet, Refills: 0 Current Discharge Medication List START taking these medications Details cyclobenzaprine (FLEXERIL) 5 mg tablet Take 1 tablet (5 mg total) by mouth 3 (three) times a day asneeded for muscle spasms for up to 30 doses. Qty: 30 tablet, Refills: 0 gabapentin (NEURONTIN) 100 mg capsule Take 1 capsule (100 mg total) by mouth 3 (three) times a day. Qty: 90 capsule, Refills: 0 Current Discharge Medication List STOP taking these medications(patient does not take these medications at home) albuterol HFA (PROVENTIL HFA,VENTOLIN HFA) 90 mcg/actuation inhaler Comments: Reason for Stopping: fluticasone (FLONASE) 50 mcg/actuation nasal spray Comments: Reason for Stopping: Outpatient Follow-Up: Future Appointments Date Time Provider Department Center 10/24/2017 2:00 PM Ko Melendez MD [facility] 11/14/2017 2:00 PM LAB, [facility] 7 ONC ONC LAB [facility] 11/14/2017 2:30 PM Khris Arthur MD [facility] On[facility] primary care provider Justen Gale MD [address] [facility] [address] [facility] [address] Khris Arthur MD [address] [facility] [id number] follow with oncology as [place] [address] [facility] [address] [facility] [address] follow up after [place] [address] [facility] [address] [facility] [address] follow up with pain management for steroid injection as scheduled Discharge Time:Greater than 30 minutes Elo Aceves MD [facility] [phone] 10/23/2017 4:47 PM documented in this encounter Medications at Time of Discharge albuterol HFA (PROVENTIL HFA) 90 mcg/actuation inhaler Inhale 2 puffs. 08/15/2017 8 baclofen (LIORESAL) 10 mg tablet TAKE 0.5-1 TAB EVERY 12 HOURS NEEDED FOR MUSCLE CRAMPING/SPASM S 05/31/2017 8 ciprofloxacin (CIPRO) 500 mg tablet [...] MOUTH DAILY AFTER A MEAL 08/09/2016 8 gabapentin (NEURONTIN) 100 mg capsule Take 1 capsule (100 mg total) by mouth 3 (three) times a day. 90 capsule 10/23/2017 8 gabapentin (NEURONTIN) 300 mg capsule TAKE 2 CAPSULE 3 TIMES DAILY 05/31/2017 8 glimepiride (AMARYL) 1 mg tabletIndications:ty pe 2 diabetes mellitus TK 1 T PO QAM 3 10/17/2017 8 guaiFENesin-codeine (GUAITUSS AC) liquid 100-10 mg/5 mL Take 5 mL by mouth. 08/13/2017 8 HYDROcodone-acetamin ophen (NORCO) 5-325 mg per tabletIndications:Pa in Take 1 tablet by mouth every 8 (eight) hours as needed for pain (1 tablet for mild to moderate pain or 2 tablets for severe pain). Do not exceed 8 tablets/day. 25 tablet 10/23/2017 8 HYDROcodone-acetamin ophen (NORCO) 5-325 mg per [...] every day at bedtime 0 05/11/2012 8 sitaGLIPtin-metformi n (JANUMET) 50-1,000 mg per tablet Take 1 tablet by mouth daily. 8 documented as of this encounter Ordered Prescriptions Prescription Sig Dispense Quantity Refills Last Filled Start Date End Date gabapentin (NEURONTIN) 100 mg capsule Take 1 capsule (100 mg total) by mouth 3 (three) times a day. 90 capsule 10/23/2017 8 cyclobenzaprine (FLEXERIL) 5 mg tablet Take 1 tablet (5 mg total) by mouth 3 (three) times a day as needed for muscle spasms for up to 30 doses. 30 tablet 10/23/2017 8 HYDROcodone-acetam inophen (NORCO) 5-325 mg per tabletIndications: Pain Take 1 tablet by mouth every 8 (eight) hours as needed for pain (1 tablet for mild to moderate pain or 2 tablets for severe pain). Do not exceed 8 tablets/day. 25 tablet 10/23/2017 8 documented in this encounter Discharge Disposition Disposition Code Departure Means Destination Discharge to home or self custodial documented in this encounter H&P Notes * Sony Bullard MD - 10/23/2017 1:43 AM CDT History and Physical Chief Complaint: worsening lower back and left leg pain for 4 weeks HPI: The patient is a 62 y.o. female with a history of sciatica, diabetes, hypertension, presenting to the ED c/o severe left lower back pain that radiates down the posterior aspect of her left lower extremity to her toes. Patient has had this pain intermittently for the last 4 weeks. Patient describes that her pain was so severe today that she was having difficulty walking and needed to use a walker.She took 3 [place] today with mild relief. Patient denies incontinence or saddle anesthesia. She has chronic numbness and tingling in feet. Patient also states that she is mildly constipated. She was seen at [facility] ED on 10/09. CT scan showed multiple bulging discs and was prescribed [place] and Prednisone. She finished her prednisone 3 days ago. Patient sees a neurosurgeon Dr. Melendez tomorrow.she denies any falls. Past Medical History: Diagnosis Date ??? Adiposity [...] Medication Sig Dispense Refill Last Dose ??? azithromycin (ZITHROMAX) 250 mg tablet Take 2 tablets the first day, then 1 tablet daily for 4 days 6 tablet 0 ??? exemestane (AROMASIN) 25 mg tablet Take 25 mg by mouth daily. After a meal 07/31/2017 at Unknown time ??? fluticasone (FLONASE) 50 mcg/actuation nasal spray Administer 1 spray into each nostril 2 (two)times a day. 16 g 0 ??? HYDROcodone-acetaminophen (NORCO) 5-325 mg per tablet Take 1-2 tablets by mouth every 6 (six) hours as needed for pain (1 tablet for mild to moderate pain or 2 tablets for severe pain). 12 tablet0 ??? HYDROcodone-acetaminophen (NORCO) 5-325 mg per tablet Take 1-2 tablets by mouth every 4 (four) hours as needed for pain (1 tablet for mild to moderate pain or 2 tablets for severe pain). Do not exceed 8 tablets/day. 20 tablet 0 ??? HYDROcodone-homatropine (HYCODAN) 1-0.3 mg/mL syrup Take 5 mL by mouth every 4 (four) hours as needed for cough. 120 mL 0 ??? lisinopril (PRINIVIL,ZESTRIL) 20 mg tablet take 1 Tablet (20MG) by oral route every day (Patient taking differently: Take 20 mg by mouth daily. ) 0 07/31/2017 at Unknown time ??? loratadine (CLARITIN) 10 mg tablet Take 1 tablet (10 mg total) by mouth daily. 20 tablet 0 ??? omeprazole (PriLOSEC) 40 mg capsule Take 1 capsule (40 mg total) by mouth daily. 30 capsule 11 07/31/2017 at Unknown time ??? oxybutynin (DITROPAN) 5 mg tablet take 1 tablet by oral route every day (Patient taking differently: Take 5 mg by mouth daily. ) 0 0 07/31/2017 at Unknown time ??? polyethylene glycol (MIRALAX) 17 gram/dose powder Mix 1 scoop (17 g) in 8 oz of water and drinkdaily. 527 g 0 ??? rivaroxaban (XARELTO) 10 mg tablet Take 10 mg by mouth daily. 07/31/2017 at Unknown time ??? rOPINIRole (REQUIP) 5 mg tablet take 1 tablet (5MG) by oral route every day at bedtime (Patienttaking differently: Take 5 mg by mouth nightly. ) 0 07/31/2017 at Unknown time ??? sitaGLIPtin-metformin (JANUMET) 50-1,000 mg per tablet Take 1 tablet by mouth. 07/31/2017 at unknown Allergies Allergen Reactions ??? Ceftriaxone Anaphylaxis R [...] syndrome; Review of Systems: Review of Systems All other systems reviewed and are negative. Objective: Vitals: Arrival Vitals [10/22/175] Temp 37.1 ??C (98.7 ??F) Pulse 92 Resp 20 BP 120/61 SpO2 97 % Temp src Oral Heart Rate Source Monitor Patient Position Sitting BP Location Right arm FiO2 (%) Most Recent : Vitals: 10/22/17 2345 10/23/17 0015 10/23/17 0118 10/23/17 0159 BP: 114/63 120/65 100/54 118/60 BP Location: Right arm Patient Position: Pulse: 88 83 Resp: 16 18 Temp: 36.4 ??C (97.6 ??F) TempSrc: Oral SpO2: 99% 100% 97% 98% Weight: 126.8 kg (279 lb 8.7 oz) Height: 154.9 cm (5' 1 ) No intake or output data in the 24 hours ending 10/23/17 0207 Physical exam: Eyes: NETTIE, sclare non icteric Neck: supple, no nuchal ridigity, no gross carotid bruits appreciated Pharynx: No gross oral lesion, tongue midline, mucosa moist Lungs CTA Heart: [id number] Abd: +BS, Non Tender, Non distended, No gross hepatomegaly Lower Ext: No gross edema Neuro: No new gross deficits appreciated Musculoskeletal: no gross joint erythema, edema, tenderness. SLR painful Lab/Radiology/Diagnostic Review: Recent Results (from the past 24 hour(s)) CBC with auto differential Collection Time: 10/22/17 11:30 PM Result Value Ref Range WBC 11.0 (H) 3.8 - 9.9 K/cumm RBC 4.29 3.90 - 5.20 M/cumm Hgb 11.6 (L) 11.9 - 15.5 g/dL Hct 37.7 35.6 - 45.5 % MCV 87.9 81.3 - 96.4 fL MCH 27.0 (L) 27.1 - 33.3 pg MCHC 30.8 (L) 32.3 - 35.7 g/dL RDW CV 14.9 11.1 - 14.9 % RDW SD 47.8 35.7 - 48.1 fL Plt 334 150 - 400 K/cumm MPV 10.1 9.1 - 12.3 fL NRBC Abs 0.00 0.00 - 0.01 K/cumm Basic metabolic panel Collection Time: 10/22/17 11:30 PM Result Value Ref Range Sodium 137 135 - 145 mmol/L Potassium, pl 4.3 3.5 - 5.1 mmol/L Chloride 103 100 - 114 mmol/L CO2 29 22 - 32 mmol/L Anion Gap 9 8 - 16 mmol/L BUN 15 8 - 24 mg/dL Creatinine 0.84 0.60 - 1.30 mg/dL Glucose 273 (H) 70 - 199 mg/dL Calcium 9.4 8.4 - 10.5 mg/dL Differential, auto Collection Time: 10/22/17 11:30 PM Result Value Ref Range Neutrophil absolute 7.2 (H) 1.7 - 6.5 K/cumm Immature granulocyte absolute 0.1 0.0 - 0.1 K/cumm Lymphocytes absolute 2.5 0.8 - 3.3 K/cumm Monocyte absolute 0.8 0.2 - 0.8 K/cumm Eosinophils absolute 0.4 0.0 - 0.5 K/cumm Basophils, abs 0.0 0.0 - 0.1 K/cumm Neutrophils 65.4 % Immature granulocytes 0.6 % Lymphocytes 22.7 % Monocytes 7.6 % Eosinophils 3.3 % Basophils 0.4 % eGFR Collection Time: 10/22/17 11:30 PM Result Value Ref Range GFR 75 mL/min/1.73 m2 No results found. A/P Acute left-sided low back pain with left-sided sciatica Likely disc herniation. NSGY to see patient tomorrow. Ordered MRI per NSGY recs. continue with homenorco. Pulmonary embolism (CMS/HCC) On Rivaroxaban Type 2 diabetes mellitus with neurologic complication, without long-term current use of insulin (CMS/HCC) Hold janument. Start on SSI and accucheks Essential hypertension On lisinopril Sony Bullard MD documented in this encounter Consult Notes * John Paul Moyer MD - 10/23/2017 4:03 PM CDTAssociated Order(s): IP CONSULT TO PAIN MANAGEMENT Images from the original note were not included. Patient Name: Karly Marques : 1955 Today's Date: 10/23/2017 PCP: Justen Gale MD Referring: No ref. provider found Chief Complaint Patient presents with ??? Back Pain Has appointment upcoming with neurologist, but reports pain is uncontrolled. HPI Karly Marques is a 62 y.o. year old female seen in consultation today who unfortunately has significant low back pain issues over the past 3-4 weeks. She notes insidious onset with waking up withthis sudden low back pain into the left lower extremity. She describes radiation of pain that extends from left low back posteriorly into the calf and to the medial aspect of the ankle. This is present both with rest and activity but is somewhat worse with activity. She has had minimal relief with medications including opioids and anti-inflammatories. She denies any weakness per se though has limitations in strength that are limited by pain. She denies any bowel or bladder issues. She had previously had some low back pain a year so ago though this was much more mild in scale. Allergies Allergen Reactions ??? Ceftriaxone Anaphylaxis R ??? Cephalosporins Anaphylaxis ??? Metoclopramide Other (See comments) Restless leg syndrome ??? Oxycodone Vomiting Past Medical History: Diagnosis Date ??? Adiposity [...] US SOFT TISSUE ABSCESS DRAIN N/A 10/24/2014 Social History Social History ??? Marital status: Spouse name: N/A ??? Number of children: N/A ??? Years of education: N/A Occupational History ??? Not on file. Social History Main Topics ??? Smoking status: Former Smoker ??? Smokeless tobacco: Never Used ??? Alcohol use No ??? Drug use: No ??? Sexual activity: Defer Other Topics Concern ??? Not on file Social History Narrative ??? No narrative on file Family History Problem Relation Age of Onset [...] Other Family history of restless leg syndrome; HOME MEDICATIONS : exemestane (AROMASIN) 25 mg tablet HYDROcodone-acetaminophen (NORCO) 5-325 mg per tablet lisinopril (PRINIVIL,ZESTRIL) 20 mg tablet oxybutynin (DITROPAN) 5 mg tablet polyethylene glycol (MIRALAX) 17 gram/dose powder rivaroxaban (XARELTO) 10 mg tablet rOPINIRole (REQUIP) 5 mg tablet sitaGLIPtin-metformin (JANUMET) 50-1,000 mg per tablet albuterol HFA (PROVENTIL HFA,VENTOLIN HFA) 90 mcg/actuation inhaler albuterol HFA (PROVENTIL HFA,VENTOLIN HFA) 90 mcg/actuation inhaler azithromycin (ZITHROMAX) 250 mg tablet fluticasone (FLONASE) 50 mcg/actuation nasal spray HYDROcodone-acetaminophen (NORCO) 5-325 mg per tablet HYDROcodone-homatropine (HYCODAN) 1-0.3 mg/mL syrup loratadine (CLARITIN) 10 mg tablet omeprazole (PriLOSEC) 40 mg capsule Review of Systems Review of Systems Constitutional: Negative. Negative for chills, fever and unexpected weight change. HENT: Negative. Negative for hearing loss, nosebleeds and sore throat. Eyes: Negative. Negative for discharge and redness. Respiratory: Negative. Negative for cough, chest tightness, shortness of breath and wheezing. Cardiovascular: Negative. Negative for chest pain and palpitations. Gastrointestinal: Negative. Negative for abdominal distention and vomiting. Endocrine: Negative. Negative for polydipsia and polyuria. Genitourinary: Negative. Negative for difficulty urinating, frequency and urgency. Musculoskeletal: Positive for back pain. Skin: Negative. Negative for color change and rash. Allergic/Immunologic: Negative. Negative for environmental allergies and immunocompromised state. Neurological: Negative. Negative for dizziness and seizures. Hematological: Negative. Negative for adenopathy. Does not bruise/bleed easily. Psychiatric/Behavioral: Negative. Negative for confusion, decreased concentration and hallucinations. All other systems reviewed and are negative. Physical Exam Vitals: 10/23/17 0459 10/23/17 0505 10/23/17 0805 10/23/17 1100 BP: 108/63 112/56 107/57 BP Location: Right arm Left arm Patient Position: Lying Pulse: 81 83 78 Resp: Temp: 97.3 ??F (36.3 ??C) 97.6 ??F (36.4 ??C) 97.7 ??F (36.5 ??C) TempSrc: Oral Oral Oral SpO2: 99% 97% 100% Weight: Height: Body mass index is 52.82 kg/m??. Physical Exam Constitutional: She is oriented to person, place, and time. She appears well- developed and well-nourished. HENT: Head: Normocephalic and atraumatic. Eyes: Conjunctivae and EOM are normal. Pupils are equal, round, and reactive to light. Neck: Neck supple. No tracheal deviation present. Cardiovascular: Normal rate. Pulmonary/Chest: Effort normal. Abdominal: Soft. Musculoskeletal: Lumbar back: She exhibits decreased range of motion and tenderness. Back: Neurological: She is alert and oriented to person, place, and time. She has normal strength and normal reflexes. No cranial nerve deficit or sensory deficit. Skin: Skin is warm, dry and intact. Psychiatric: She has a normal mood and affect. Her speech is normal and behavior is normal. Nursing note and vitals reviewed. Review of Data: CT scan from September of 2017 was reviewed which shows some epidural lipomatosis and potential L3 root irritation from disc bulge. There is L4-5 disc bulge with significant facet arthropathy. Assessment Patient Active Problem List Diagnosis ??? Restless [...] stenosis of lumbar region without neurogenic claudication Plan I reviewed CT scan from September of 2017 which does not show very impressive stenosis though certainly she may have some component of spinal stenosis contributing to her pain. That said, we tried to get an MRI though unfortunately she did not fit in the machine so we will hopefully the able to get thatat a different facility. Conversely, there is some component of epidural lipomatosis though I believe she would see improvement with significant weight loss which would also make her better surgical candidate in the long run as well. For now, I will plan for lumbar epidural steroid injection likelyat the L4/5 interspace with needle tip directed to the left side. We may consider transforaminal rachid hendricks on the left at L4/5 as well. I cannot rule out some pain that could potentially be from SI joint and facet joints though given the radicular component this is most likely due to spinal stenosisor nerve irritation outside the spinal canal. Unfortunately she has required anticoagulation so we will get this done for soon as possible next week. I would again recommend that she consider physical therapy and increased activity level as well. I will see her back in the next week or so for lumbar epidural steroid injection. No Follow-up on file. John Paul Moyer MD I, Amadeo João, have personally performed the services described in the documentation , reviewed the documentation as recorded by the scribe in my presence, and it accurately and completely records my words and actions though there are potential variances in recording and programmer or analyst. Dictated not proofread. * Ko Melendez MD - 10/23/2017 3:21 PM CDTAssociated Order(s): IP CONSULT TO ORTHOPEDIC SURGERY This is an orthopedic consultation requested because of low back pain and left sciatica. This 62-year-old female is been known to me. February of last year at seen her in the office low back pain and sciatica and seemingly things got better with nonsurgical treatment including medications therapy etc. Exactly what caused her current acute exacerbation of pain is not known to me. But about 2 maybe 3 weeks ago she had acute exacerbation with low back pain left sciatica bad enough that especially in the morning she could barely walk and therefore she presented to the emergency room. There a CT scan was performed. She had a follow-up appointment with me in my office tomorrow however pain became acutely worse to a point where she could not have it at home and therefore presented to the emergency room again this time to be admitted for pain management. Currently describes intractable left sided low back pain with left buttock left thigh and left leg radiation i.e. sciatica. Is no right-sided radiation. She denies bladder and bowel dysfunction except he tells me that she has had recently a urinary tract infection which is being treated by her primary care physician Dr. Gale. She has had no fever. Past medical history patient is grossly obese she is about 300 lb with a BMI of 52. Apparently 2 previous attempts to get MRI scans at [facility] and also at [facility] have beenfailed. Patient also is diabetic he has sleep apnea she has had the right mastectomy for breast cancer treated at [facility]. She has had a mastectomy which was complicated by infections in fact her infection was reported to be so bad that the treating oncologist could not give her chemotherapy and surgery and radiation was only treatment offered but she is currently cancer-free. Beyond that she has had controlled hypertension. She also has had bilateral total knee arthroplasty 17-18 years ago with good results. Review of systems other than low back pain and left sciatica is negative she does not have shortness of breath tachycardia bladder or bowel dysfunction tingling numbness weakness headaches etc. Physical examination shows overweight 62-year-old female in no acute distress at this time. Her lumbar spine for which I am consulted shows normal skin no deformity no scars diffuse low back and leftbuttock tenderness. In the sitting position her straight leg sign is minimally positive to approximately 45?? on the left side negative on the right side. Reflex examination knee and ankle reflexes are 2+ and symmetric. No pathological reflexes. Toes are downgoing. There is no sensory deficit. There is no motor deficit she did walk for me with some difficulty but was unable to get up on her tip toes. Two weeks ago when she was in the emergency room a CT scan of the lumbar spine was performed. I have seen this CT scan and also its interpretation. She has some degenerative disc disease of the 5 lumbar vertebrae including L4-5 where she also has a minute spondylolisthesis. No lytic or blastic lesions no evidence of metastatic disease other than a minute spondylolisthesis mentioned her alignmentis satisfactory. Epidural lipomatosis is also seen. It will be nice to get an MRI scan on this lady unfortunately 2 previous attempts have been unsuccessful because of her obesity according to my notes of last February I wanted to get [facility] where they have a large MRI scan to accommodate obese patients with cancer somehow thatwas never followed through. In any case right now patient is absolutely against any kind of the surgery and she is not a surgical candidate anyway. He wants something to be done for pain without surgical intervention. I believe she means pain management and or epidural steroid injections I will getappropriate consultation. If this fails then I will be happy to see her in the office sometimes in the near future for consideration of MRI scanning at the machine that can accommodate her body habitus. I have discussed this with her she is in agreement pain consultation initiated. documented in this encounter ED Notes * Erick Davis MD - 10/22/2017 10:21 PM CDT HPI Chief Complaint Patient presents with ??? Back Pain Has appointment upcoming with neurologist, but reports pain is uncontrolled. HPI 10:27 PM Karly Marques is a 62 y.o. female with a history of sciatica, diabetes, hypertension, presenting to the ED c/o severe left lower back pain that radiates down the posterior aspect of her left lower extremity to her toes. Patient has had this pain intermittently for the last 3 weeks. Patient describes that her pain was so severe today that she was having difficulty walking and needed to use a walker. She took 3 [place] today with mild relief. Patient denies incontinence or saddle anesthesia, but does state that she has some numbness in the toes of her left foot. Patient also states that she is mildly constipated. She was seen at [facility] ED on 10/09. CT scan showed multiple bulging discs and was prescribed [place] and Prednisone. Patient sees a neurosurgeon Dr. Melendez tomorrow. Patient History Past Medical History: Diagnosis Date [...] are negative. Physical Exam ED Triage Vitals [10/22/17 2155] Temp Pulse Resp BP SpO2 37.1 ??C (98.7 ??F) 92 20 120/61 97 % Temp src Heart Rate Source [...] exhibits no distension. There is no tenderness. Genitourinary: Genitourinary Comments: Normal perianal sensation Musculoskeletal: Normal range of motion. She exhibits no edema, tenderness or deformity. Neurological: She is alert and oriented to person, place, and time. No sensory deficit. 5/5 knee extension and plantar flexion bilaterally Skin: Skin is warm and dry. Capillary refill takes less than 2 seconds. No rash noted. No erythema.No pallor. Psychiatric: She has a normal mood and affect. Her behavior is normal. Nursing note and vitals reviewed. Procedures MDM Labs Reviewed CBC WITH AUTO DIFFERENTIAL - Abnormal Result Value WBC 11.0 (*) RBC 4.29 Hgb 11.6 (*) Hct 37.7 MCV 87.9 MCH 27.0 (*) MCHC 30.8 (*) RDW CV 14.9 RDW SD 47.8 Plt 334 MPV 10.1 NRBC Abs 0.00 Narrative: BASIC METABOLIC PANEL - Abnormal Sodium 137 Potassium, pl 4.3 Chloride 103 CO2 29 Anion Gap 9 BUN 15 Creatinine 0.84 Glucose 273 (*) Calcium 9.4 Narrative: DIFFERENTIAL AUTO - Abnormal Neutrophil absolute 7.2 (*) Immature granulocyte absolute 0.1 Lymphocytes absolute 2.5 Monocyte absolute 0.8 Eosinophils absolute 0.4 Basophils, abs 0.0 Neutrophils 65.4 Immature granulocytes 0.6 Lymphocytes 22.7 Monocytes 7.6 Eosinophils 3.3 Basophils 0.4 Narrative: EGFR GFR 75 Narrative: No orders to display BP 100/54 Pulse 88 Temp 37.1 ??C (98.7 ??F) (Oral) Resp 16 Ht 154.9 cm (5' 1 ) Wt 121.1 kg (267 lb) SpO2 97% BMI 50.45 kg/m?? Patient Vitals for the past 24 hrs: BP Temp Temp src Pulse Resp SpO2 Height Weight 10/23/17 0118 100/54 - - 88 16 97 % - - 10/23/17 0015 120/65 - - - - 100 % - - 10/22/17 2345 114/63 - - - - 99 % - - 10/22/17 2155 120/61 37.1 ??C (98.7 ??F) Oral 92 20 97 % 154.9 cm (5' 1 ) 121.1 kg (267 lb) [facility] ED Course as of Oct 23 125 Time: 10/23 2219 Comment: Preliminary reading caveat: Please be aware that if this encounter involved a CT scan, there is a high probability that at the time I assessed the patient I had an initial interpretation available to me by the radiologist. The actual detailed descriptive impression that is in the chart maynot have been available to me at the time of assessing the patient. By: Damon Fletcher Time: 10/22 2220 Comment: If applicable: The patient has been informed that they may have pre- hypertension or Hypertension based on a blood pressure reading in the emergency department. I recommend that the patient call the primary care provider listed on their discharge instructions or a physician of their choice this week to arrange follow up for further evaluation of possible pre-hypertension or Hypertension. By: Damon Fletcher Time: 10/22 2306 Comment: The chief complaint, HPI, ROS, PEx, ED evaluation, were discussed with Dr. Melendez. Recommends admission, non emergent MRI and he will consult. By: Damon Fletcher Time: 10/22 421 Comment: Care plan discussed with nurse By: Damon Fletcher Time: 10/23 1 Comment: Case discussed with Dr. Bullard. Time discussed: 1 HPI, physical exam, labs, radiographic evaluation, medications/interventions, were discussed. Dr. Bullard agrees to accept care of the patient at this time. Interim/bridging admission orders reviewed and agreed upon. Furthermore, the floor where the patient was admitted to and the consultants were agreed upon. Nursing notes reviewed as of this entry. By: Damon Fletcher scribed for Erick Davis MD in the doctor's presence. I electronically signed this note at 10:21 PM on 10/22/2017. I, Erick Davis MD , have personally performed the services described in the documentation , reviewed the documentation, as recorded by the scribe in my presence, and it accurately and completely records my words and actions. Clinical Impression: Back pain, unspecified back location, unspecified back pain laterality, unspecified chronicity Erick Davis MD 10/23/17 0407 documented in this encounter Miscellaneous Notes * Assessment & Plan Note - Sony Bullard MD - 10/23/2017 2:07 AM CDT Associated Problem(s): Hypertension On lisinopril * Assessment & Plan Note - Sony Bullard MD - 10/23/2017 2:06 AM CDT Associated Problem(s): Type 2 diabetes mellitus with neurologic complication, without long-term current use of insulin ([facility]) (HCC) Hold janument. Start on SSI and accucheks * Assessment & Plan Note - Sony Bullard MD - 10/23/2017 2:04 AM CDT Associated Problem(s): Pulmonary embolism (HCC) On Rivaroxaban * Assessment & Plan Note - Sony Bullard MD - 10/23/2017 2:03 AM CDT Associated Problem(s): Acute left-sided low back pain with left-sided sciatica Likely disc herniation. NSGY to see patient tomorrow. Ordered MRI per NSGY recs. continue with homenorco. documented in this encounter Plan of Treatment Not on file documented as of this encounter Procedures Procedure Name Priority Date/Time Associated Diagnosis Comments POCT GLUCOSE DEVICE Routine 10/23/2017 1 2:24 PM CDT POCT GLUCOSE DEVICE Routine 10/23/2017 7 :57 AM CDT POCT GLUCOSE DEVICE Routine 10/23/2017 2 :29 AM CDT EGFR STAT 10/22/2017 11:30 PM CDT DIFFERENTIAL AUTO STAT 10/22/2017 11: 30 PM CDT CBC WITH AUTO DIFFERENTIAL STAT 10/22/2017 11:30 PM CDT BASIC METABOLIC PANEL STAT 10/22/2017 11:30 PM CDT documented in this encounter Results * (ABNORMAL) POCT glucose (10/23/2017 12:24 PM CDT) Glucose, POC 255(H) 70 - 199 mg/dL [facility] Blood specimen (specimen) 10/23/2017 12:24 PM CDT 10/23/2017 12:24 PM CDT Narrative [facility] - 10/23/2017 12:26 PM CDT Elo Aceves MD LAB POCT ORDERABLES - DEVICE Final Result Performing Organization Address [facility] Co de Phone Number [facility] [address] [facility] [place] [address] * (ABNORMAL) POCT glucose (10/23/2017 7:57 AM CDT) Glucose, POC 203(H) 70 - 199 mg/dL [facility] Blood specimen (specimen) 10/23/2017 7:57 AM CDT 10/23/2017 7:57 AM CDT Narrative [facility] - 10/23/2017 7:59 AM CDT Elo Aceves MD LAB POCT ORDERABLES - DEVICE Final Result Performing Organization Address [facility] Co de Phone Number [facility] [address] [facility] [place] [address] * POCT glucose (10/23/2017 2:29 AM CDT) Glucose, POC 199 70 - 199 mg/dL [facility] Blood specimen (specimen) 10/23/2017 2:29 AM CDT 10/23/2017 2:29 AM CDT Narrative [facility] - 10/23/2017 2:30 AM CDT Sony Bullard MD LAB POCT ORDERABLES - DE VICE Final Result Performing Organization Address [facility] Co de Phone Number [facility] [address] [facility] [place] [address] * eGFR (10/22/2017 11:30 PM CDT) eGFR 75 mL/min/1.7 3 m2 [facility] Comment: Interpretive Data Reference Interval Normal ?>/= 90 mL/min/1.73m2 Mildly decreased* ? 60 - 89 mL/min/1.73m2 Mildly to moderately decreased ?45 - 59 mL/min/1.73m2 Moderately to severely decreased ??30 - 44 mL/min/1.73m2 Severely decreased ?15 - 29 mL/min/1.73m2 Kidney Failure ?< 15 ??mL/min/1.73m2 *Relative to young adult level If -Singaporean multiply value by 1.16. Estimated glomerular filtration [...] was last reviewed 2015. Blood specimen (specimen) 10/22/2017 11:30 PM CDT 10/22/2017 11:43 PM CDT Narrative [facility] - 10/23/2017 12:01 AM CDT Erick Davis MD LAB BLOOD ORDERABLES Final Result [facility] [id number] [place] [address] * (ABNORMAL) Differential, auto (10/22/2017 11:30 PM CDT) Neutrophil abs 7.2(H) 1.7 - 6.5 K/cumm [facility] Imm gran abs 0.1 0.0 - 0.1 K/cumm [facility] Lymphocyte abs 2.5 0.8 - 3.3 K/cumm [facility] Monocyte abs 0.8 0.2 - 0.8 K/cumm [facility] Eosinophil abs 0.4 0.0 - 0.5 K/cumm [facility] Basophil abs 0.0 0.0 - 0.1 K/cumm [facility] Neutrophil pct 65.4 % [facility] Comment: Interpretive Data Percent cell count reference ranges are not reported, since discordance with absolute values may lead to misinterpretation of CBC data. Current Interpretive Data was last revised on 2017. Imm gran pct 0.6 % [facility] Comment: Interpretive Data Percent cell count reference ranges are not reported, since discordance with absolute values may lead to misinterpretation of CBC data. Current Interpretive Data was last revised on 2017. Lymphocyte pct 22.7 % [facility] Comment: Interpretive Data Percent cell count reference ranges are not reported, since discordance with absolute values may lead to misinterpretation of CBC data. Current Interpretive Data was last revised on 2017. Monocyte pct 7.6 % [facility] Comment: Interpretive Data Percent cell count reference ranges are not reported, since discordance with absolute values may lead to misinterpretation of CBC data. Current Interpretive Data was last revised on 2017. Eosinophil pct 3.3 % [facility] Comment: Interpretive Data Percent cell count reference ranges are not reported, since discordance with absolute values may lead to misinterpretation of CBC data. Current Interpretive Data was last revised on 2017. Basophil pct 0.4 % [facility] Comment: Interpretive Data Percent cell count reference ranges are not reported, since discordance with absolute values may lead to misinterpretation of CBC data. Current Interpretive Data was last revised on 2017. Blood specimen (specimen) 10/22/2017 11:30 PM CDT 10/22/2017 11:39 PM CDT Narrative [facility] - 10/22/2017 11:45 PM CDT us Erick Davis MD LAB BLOOD ORDERABLES Final Result [facility] [address] [place] [address] * (ABNORMAL) Basic metabolic panel (10/22/2017 11:30 PM CDT) Sodium 137 135 - 145 mmol/L [facility] Potassium, pl 4.3 3.5 - 5.1 mmol/L [facility] Chloride 103 100 - 114 mmol/L [facility] CH CO2 29 22 - 32 mmol/L [facility] Anion gap 9 8 - 16 mmol/L [facility] BUN 15 8 - 24 mg/dL [facility] Creatinine 0.84 0.60 - 1.30 mg/dL [facility] Glucose 273(H) 70 - 199 mg/dL [facility] Comment: Interpretive Data Fasting glucose >/= 126 [...] 2017. Calcium 9.4 8.4 - 10.5 mg/dL [facility] Blood specimen (specimen) 10/22/2017 11:30 PM CDT 10/22/2017 11:43 PM CDT Narrative [facility] - 10/23/2017 12:01 AM CDT Erick Davis MD LAB BLOOD ORDERABLES Final Result [facility] [address] Department [place] [address] * (ABNORMAL) CBC with auto differential (10/22/2017 11:30 PM CDT) WBC 11.0(H) 3.8 - 9.9 K/cumm [facility] RBC 4.29 3.90 - 5.20 M/cumm [facility] Hgb 11.6(L) 11.9 - 15.5 g/dL [facility] Hct 37.7 35.6 - 45.5 % [facility] MCV 87.9 81.3 - 96.4 fL [facility] MCH 27.0(L) 27.1 - 33.3 pg [facility] MCHC 30.8(L) 32.3 - 35.7 g/dL [facility] RDW CV 14.9 11.1 - 14.9 % [facility] RDW SD 47.8 35.7 - 48.1 fL [facility] Plt 334 150 - 400 K/cumm [facility] MPV 10.1 9.1 - 12.3 fL [facility] NRBC abs 0.00 0.00 - 0.01 K/cumm [facility] Blood specimen (specimen) (Blood, Venous) 10/22/2017 11:30 PM CDT 10/22/2017 11:39 PM CDT Narrative [facility] - 10/22/2017 11:45 PM CDT Erick Davis MD LAB BLOOD ORDERABLES Final Result Performing Organization Address City/State/[facility] Co de Phone Number [facility] [address] [place] [address] documented in this encounter Visit Diagnoses Diagnosis Back pain, unspecified back location, unspecified back pain laterality, unspecified chronicity- Primary Acute left-sided low back pain with left-sided sciatica Pulmonary embolism (HCC) Other pulmonary embolism and infarction Type 2 diabetes mellitus with neurologic complication, without long-term current use of insulin (HCC) Essential hypertension Unspecified essential hypertension Long-term current use of opiate analgesic Encounter for long-term (current) use of other medications Lumbosacral spondylosis without myelopathy Radiculopathy, lumbosacral region Thoracic or lumbosacral neuritis or radiculitis, unspecified Spinal stenosis of lumbar region without neurogenic claudication 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 Type 2 diabetes mellitus with hyperglycemia, without long-term current use of insulin (HCC) Constipation Unspecified constipation documented in this encounter Administered Medications Inactive Administered Medications - up to 3 most recent administrations Medication Order MAR Action Action Date Dose Rate Site dextrose 50% (concentrated solution) CONCENTRATED solution 25 g 25 g, intravenous, Every 15 min PRN, low blood sugar, blood glucose less than 70 mg/dL, Starting on Mon10/23/17 at 1302, If patient is NPO or unresponsive, give dextrose 50% IV Push over 2 minutes., Indications: HypoglycemiaIndications:Hypoglyc emia dextrose oral liquid liquid 15 g 15 g, oral, Every 15 min PRN, low blood sugar, blood glucose less than 70 mg/dL, Starting on Mon10/23/17 at 1302, If patient is alert and able to eat/drink, give 15 gram glucose or one juice (4 fluid ounces) NOT ORANGE JUICE exemestane (AROMASIN) tablet 25 mg 25 mg, oral, Daily after breakfast, First dose on Mon10/23/17 at 0830 Given 10/23/2017 11:13 AM CDT 25 mg fentaNYL (SUBLIMAZE) preservative free injection 100 mcg 100 mcg, intravenous, Every 1 hour PRN, 1st line for pain, Starting on Mon10/22/17 at 2250, For 2 doses Given 10/23/2017 1:09 AM CDT 100 mcg Given 10/22/2017 11:37 PM CDT 100 mcg glucagon injection 1 mg 1 mg, intramuscular, Every 30 min PRN, low blood sugar, blood glucose less than 70 mg/dL, Starting on Mon10/23/17 at 1302, If patient has no IV access and not alert, given Glucagon IM then follow with either oral glucose or IV dextrose treatment., Indications: HypoglycemiaIndications:Hypoglycemia HYDROcodone-acetaminophen (NORCO) 5-325 mg per tablet 1 tablet 1 tablet, oral, 4 times daily PRN, 2nd line for pain, Starting on Mon10/23/17 at 0245, Indications: PainIndications:Pain Given 10/23/2017 12:29 PM CDT 1 t ablet Given 10/23/2017 4:55 AM CDT 1 tablet insulin lispro (HumaLOG) injection 1-3 Units 1-3 Units, subcutaneous, Nightly, First dose on Mon10/23/17 at 2100, Blood Sugar Mid Dose PM - PO patients 175 or less No insulin 176 - 200 1 unit 201 - 250 2 units 251 - 299 3 units Greater than 299 Call MD for hyperglycemia management instructions Do NOT hold for NPO status., Indications: Diabetes MellitusIndications:Diabetes Mellitus insulin lispro (HumaLOG) injection 1-5 Units 1-5 Units, subcutaneous, 3 times daily with meals, First dose on Mon10/23/17 at 1800, Blood Sugar Mid Dose meal time - PO patients 139 or less No insulin 140 - 175 1 unit 176 - 200 2 unit 201 - 250 3 units 251 - 299 5 units Greater than 299 Call MD for hyperglycemia management instructions Do NOT hold for NPO status., Indications: Diabetes MellitusIndications:Diabetes Mellitus lisinopril (PRINIVIL,ZESTRIL) tablet 20 mg 20 mg, oral, Daily, First dose on Mon10/23/17 at 0900 Given 10/23/2017 11:12 AM CDT 20 mg ondansetron (ZOFRAN) injection 4 mg 4 mg, intravenous, Every 6 hours PRN, nausea, vomiting, if not tolerating PO, Starting on Mon10/23/17 at 0219, Indications: Nausea and VomitingIndications:Nausea and Vomiting Given 10/23/2017 8:33 AM CDT 4 mg ondansetron ODT (ZOFRAN-ODT) disintegrating tablet 4 mg 4 mg, oral, Every 6 hours PRN, nausea, vomiting, Starting on Mon10/23/17 at 0219, Indications: Nausea and VomitingIndications:Nausea and Vomiting rivaroxaban (XARELTO) tablet 20 mg 20 mg, oral, Daily, First dose (after last modification) on Mon10/23/17 at 0900, Administer doses greater than or equal to 15 mg/day with food; doses of 10 mg/day may be administered without regard to meals. If on heparin infusion, discontinue heparin infusion upon first administration of rivaroxaban., Indications: Venous ThrombosisIndications:Venous Thrombosis Given 10/23/2017 12:25 PM CDT 20 mg sodium chloride 0.9% flush 0.5-20 mL 0.5-20 mL, intra-catheter, Every 8 hours scheduled, First dose on Mon10/23/17 at 0600, Flush volume based on line type and size. , Indications: FlushingIndications:Flushing Given 10/23/2017 6:35 AM CDT 10 mL traMADol (ULTRAM) tablet 50 mg 50 mg, oral, 4 times daily PRN, 1st line for pain, Starting on Mon10/23/17 at 0243 documented in this encounter Discontinued Medications Medication Sig Discontinue Reason Start Date End Da te albuterol HFA (PROVENTIL HFA,VENTOLIN HFA) 90 mcg/actuation inhalerIndications:Bro nchospasm Prevention Inhale 2 puffs every 4 (four) hours as needed for shortness of breath. Other 08/18/2017 10/23/2017 albuterol HFA (PROVENTIL HFA,VENTOLIN HFA) 90 mcg/actuation inhalerIndications:Bro nchospasm Prevention Inhale 2 puffs every 4 (four) hours as needed for wheezing. Other 08/18/2017 10/23/2017 azithromycin (ZITHROMAX) 250 mg tablet Take 2 tablets the first day, then 1 tablet daily for 4 days Other 08/15/2017 10/23/2017 fluticasone (FLONASE) 50 mcg/actuation nasal spray Administer 1 spray into each nostril 2 (two) times a day. Other 08/18/2017 10/23/2017 HYDROcodone-homatropin e (HYCODAN) 1-0.3 mg/mL syrupIndications:Cough Take 5 mL by mouth every 4 (four) hours as needed for cough. Other 08/18/2017 10/23/2017 loratadine (CLARITIN) 10 mg tablet Take 1 tablet (10 mg total) by mouth daily. Other 08/18/2017 10/23/2017 omeprazole (PriLOSEC) 40 mg capsule Take 1 capsule (40 mg total) by mouth daily. Other 07/28/2017 10/23/2017 HYDROcodone-acetaminop hen (NORCO) 5-325 mg per tabletIndications:Pain Take 1-2 tablets by mouth every 6 (six) hours as needed for pain (1 tablet for mild to moderate pain or 2 tablets for severe pain). Other 08/15/2017 10/23/2017 HYDROcodone-acetaminop hen (NORCO) 5-325 mg per tabletIndications:Pain Take 1-2 tablets by mouth every 4 (four) hours as needed for pain (1 tablet for mild to moderate pain or 2 tablets for severe pain). Do not exceed 8 tablets/day. 10/09/2017 10/23/2017 documented as of this encounter Active and Recently Administered Medications Times are shown in CDT. Scheduled Medication Order 10/21/2017 10/22/2017 10/23/2017 exemestane (AROMASIN) tablet 25 mg 25 mg, oral, Daily after breakfast, First dose on Mon10/23/17 at 0830 1113 (Given - Provid er: Codie Phillips RN) fluticasone (FLONASE) 50 mcg/actuation nasal spray 1 spray 1 spray, each nostril, 2 times daily, First dose on Mon10/23/17 at 0141 0259 (Not Given - Pr ovider: Kirit Haas RN - Reason: Patient/family refused - Comment: pt states no longer being on medication )1112 (Not Given - Provider: Codie Phillpis RN - Reason: Patient/family refused) insulin lispro (HumaLOG) injection 1-3 Units 1-3 Units, subcutaneous, Nightly, First dose on Mon10/23/17 at 2100, Blood Sugar Mid Dose PM - PO patients 175 or less No insulin 176 - 200 1 unit 201 - 250 2 units 251 - 299 3 units Greater than 299 Call MD for hyperglycemia management instructions Do NOT hold for NPO status., Indications: Diabetes Mellitus insulin lispro (HumaLOG) injection 1-5 Units 1-5 Units, subcutaneous, 3 times daily with meals, First dose on Mon10/23/17 at 1800, Blood Sugar Mid Dose meal time - PO patients 139 or less No insulin 140 - 175 1 unit 176 - 200 2 unit 201 - 250 3 units 251 - 299 5 units Greater than 299 Call MD for hyperglycemia management instructions Do NOT hold for NPO status., Indications: Diabetes Mellitus lisinopril (PRINIVIL,ZESTRIL) tablet 20 mg 20 mg, oral, Daily, First dose on Mon10/23/17 at 0900 1112 (Given - Provid er: Codie Phillips RN - Comment: nausea) polyethylene glycol (MIRALAX) powder 17 g 17 g, oral, Daily, First dose on Mon10/23/17 at 0900 1424 (Not Given - Pr ovider: Codie Phillips RN - Reason: Patient/family refused) rivaroxaban (XARELTO) tablet 20 mg (CANCELED) 20 mg, oral, Daily, First dose (after last modification) on Mon10/23/17 at 0900, Administer doses greater than or equal to 15 mg/day with food; doses of 10 mg/day may be administered without regard to meals. If on heparin infusion, discontinue heparin infusion upon first administration of rivaroxaban., Indications: Venous Thrombosis 1225 (Given - Provid er: Codie Phillips RN) sodium chloride 0.9% flush 0.5-20 mL 0.5-20 mL, intra-catheter, Every 8 hours scheduled, First dose on Mon10/23/17 at 0600, Flush volume based on line type and size. , Indications: Flushing 0635 (Given - Provid er: Kirit Haas RN)1400 (Due) PRN Medication Order 10/21/2017 10/22/2017 10/23/2017 albuterol HFA (PROVENTIL HFA,VENTOLIN HFA,PROAIR HFA) 90 mcg/actuation inhaler 2 puff 2 puff, inhalation, Every 4 hours PRN (membership correspondent), wheezing, Starting on Mon10/23/17 at 0200, Indications: Bronchospasm Prevention dextrose 50% (concentrated solution) CONCENTRATED solution 25 g 25 g, intravenous, Every 15 min PRN, low blood sugar, blood glucose less than 70 mg/dL, Starting on Mon10/23/17 at 1302, If patient is NPO or unresponsive, give dextrose 50% IV Push over 2 minutes., Indications: Hypoglycemia dextrose oral liquid liquid 15 g 15 g, oral, Every 15 min PRN, low blood sugar, blood glucose less than 70 mg/dL, Starting on Mon10/23/17 at 1302, If patient is alert and able to eat/drink, give 15 gram glucose or one juice (4 fluid ounces) NOT ORANGE JUICE docusate sodium (COLACE) capsule 100 mg 100 mg, oral, 2 times daily PRN, constipation, Starting on Mon10/23/17 at 0219, Indications: constipation fentaNYL (SUBLIMAZE) preservative free injection 100 mcg (COMPLETED) 100 mcg, intravenous, Every 1 hour PRN, 1st line for pain, Starting on Mon10/22/17 at 2250, For 2 doses 2337 (Given - Provider: Anais Alicea, NURIS) 0109 (Given - Provider: Radha Vivar RN) glucagon injection 1 mg 1 mg, intramuscular, Every 30 min PRN, low blood sugar, blood glucose less than 70 mg/dL, Starting on Mon10/23/17 at 1302, If patient has no IV access and not alert, given Glucagon IM then follow with either oral glucose or IV dextrose treatment., Indications: Hypoglycemia HYDROcodone-acetaminophen (NORCO) 5-325 mg per tablet 1 tablet 1 tablet, oral, 4 times daily PRN, 2nd line for pain, Starting on Mon10/23/17 at 0245, Indications: Pain 0455 (Given - Provid er: Kirit Haas RN)1229 (Given - Provider: Codie Phillips RN) ondansetron (ZOFRAN) injection 4 mg(Linked Group 1) 4 mg, intravenous, Every 6 hours PRN, nausea, vomiting, if not tolerating PO, Starting on Mon10/23/17 at 0219, Indications: Nausea and Vomiting 0833 (Given - Provid er: Codie Phillips RN) ondansetron ODT (ZOFRAN-ODT) disintegrating tablet 4 mg(Linked Group 1) 4 mg, oral, Every 6 hours PRN, nausea, vomiting, Starting on Mon10/23/17 at 0219, Indications: Nausea and Vomiting 0833 (See Alternativ e - Provider: Codie Phillips RN) sodium chloride 0.9% flush 0.5-20 mL 0.5-20 mL, intra-catheter, As needed, line care, Starting on Mon10/23/17 at 0219, Flush volume based on line type and size. Flush before and after each use. , Indications: Flushing traMADol (ULTRAM) tablet 50 mg 50 mg, oral, 4 times daily PRN, 1st line for pain, Starting on Mon10/23/17 at 0243 Linked Groups Order Group 1: ondansetron ODT (ZOFRAN-ODT) disintegrating tablet 4 mgJump to med 4 mg, oral, Every 6 hours PRN, nausea, vomiting, Starting on Mon10/23/17 at 0219, Indications: Nausea and Vomiting Or ondansetron (ZOFRAN) injection 4 mgJump to med 4 mg, intravenous, Every 6 hours PRN, nausea, vomiting, if not tolerating PO, Starting on Mon10/23/17 at 0219, Indications: Nausea and Vomiting documented in this encounter Orders Medications Ordered That Tyler ht Not Have Been Administered Count Last Ordered Date First Ordered Date albuterol HFA (PROVENTIL HFA ,VENTOLIN HFA,PROAIR HFA) 90 mcg/actuation inhaler 2 puff 2 10/23/2017 dextrose 50% (concentrated s olution) CONCENTRATED solution 25 g 1 10/23/2017 dextrose oral liquid liquid 15 g 1 10/24/19 18 docusate sodium (COLACE) capsule 100 mg 1 0 10/23/2017 fluticasone (FLONASE) 50 mcg /actuation nasal spray 1 spray 1 10/23/2017 glucagon injection 1 mg 1 10/23/2017 HYDROcodone-acetaminophen (N ORCO) 5-325 mg per tablet 1 tablet 1 10/23/2017 HYDROcodone-acetaminophen (N ORCO) 5-325 mg per tablet 1-2 tablet 1 10/23/2017 insulin lispro (HumaLOG) inj ection 1-3 Units 1 10/23/2017 insulin lispro (HumaLOG) inj ection 1-5 Units 1 10/23/2017 ondansetron ODT (ZOFRAN-ODT) disintegrating tablet 4 mg 1 10/23/2017 polyethylene glycol (MIRALAX) powder 17 g 1 10/23/2017 rivaroxaban (XARELTO) tablet 10 mg 1 2017 sodium chloride 0.9% flush 0.5-20 mL 1 05/2017 traMADol (ULTRAM) tablet 50 mg 1 10/23/2017 Diet Count Last Ordered Date First Orde red Date ADULT DISCHARGE DIET 1 10/23/2017 Nursing Count Last Ordered Date First Orde red Date DISCHARGE ACTIVITY 3 10/23/2017 DISCHARGE CALL PROVIDER 8 10/23/2017 DISCHARGE INSTRUCTIONS 2 10/23/2017 FOLLOW UP PRIMARY PHYSICIAN 1 10/23/2017 FOLLOW UP WITH PROVIDER 3 10/23/2017 Consult Count Last Ordered Date First Orde red Date IP CONSULT TO ORTHOPEDIC SURGERY 1 10/24/19 18 IP CONSULT TO PAIN MANAGEMENT 1 10/23/2017 IV Count Last Ordered Date First Orde red Date SALINE LOCK IV 1 10/22/2017 Admission Count Last Ordered Date First Orde red Date ASSIGN PATIENT STATUS 1 10/22/2017 CORE MEASURES Count Last Ordered Date First Ord ered Date REASON FOR NO VTE PROPHYLAXIS AT ADMISSION 1 10/23/2017 ADT Patient Update Count Last Ordered Date Firs t Ordered Date ED IP DECISION TO ADMIT 1 10/22/2017 documented in this encounter Care Teams Information Security Risk Analyst Relationship Specialty Start Date End Date Justen Gale MD 2 [facility] [address] [place] [address] PCP - General 10/09/17 Liu Jerez MD Consulting Physician Gastroenterology 07/28/17 [place] [address] [facility] [address] [place] [address] Consulting Physician Pulmonary Disease 08/03/17 Khris Arthur MD [address] [facility] [address] [place] [address] Medical Oncologist/Rail Equipment Operator Medical Oncology 10/23/[address] [place] [address] [facility] [address] [place] [address] Surgeon Orthopedic Surgery 10/23/17 [place] [address] [facility] [address] [place] [address] Consulting Physician Pain Management 10/23/17 documented as of this encounter
--- OUTSIDE RECORDS SUMMARY | 2024-04-26 04:28 | XMS_ITS | Encounter Summary ---
Author Organization [facility] Address [address] [place] [address] Care Team Providers Care Herbarium Curator Name Role Phone Lavonne Hathaway MD Primary Care Provider [phone] Liu Jerez MD Unavailable [phone] Reason for Visit * Reason Onset Date Comments Positive blood culture 07/31/2017 + blood c ulture sent to me. Likely a contaminant. Patient notified but she is still feeling SOB, tired, emesis and wants to come to ER to be checked out. ER notified of complaints and culture result. Encounter Details Date Type Department Care Team (Late st Contact Info) Description 07/31/2017 Telephone [facility] [id number] [place] [address] Remi Garza MD [address] [place] [id number] Positive blood culture (+ blood culture sent to me. Likely a contaminant. Patient notified but she is still feeling SOB, tired, emesis and wants to come to ER to be checked out. 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 Likely a contaminant. Patient notified but she is still feeling SOB, tired, emesis and wants to come to ER to be checked out. ?? ER notified of complaints and culture result. documented in this encounter Plan of Treatment Not on file documented as of this encounter Visit Diagnoses Not on filedocumented in this encounter Care Teams Herbarium Curator Relationship Specialty Start Date End Date Lavonne Hathaway MD [facility] [place] [address] PCP - General 08/16/16 08/17/17 Liu Jerez MD [facility] [place] [address] Consulting Physician Gastroenterology 07/28/17 documented as of this encounter
--- OUTSIDE RECORDS SUMMARY | 2024-04-26 04:28 | XMS_ITS | Encounter Summary ---
Author Organization [facility] Healthcare Address [address] [place] [address] Care Team Providers Care Director Validation Name Role Phone Lavonne Hathaway MD Primary Care Provider [phone] Liu Jerez MD Unavailable [phone] Albert Corbin MD Unavailable [phone] Encounter Details Date Type Department Care Team (Latest Contact Info) Description 08/14/2017 7:50 PM CDT - 08/14/2017 10:46 PM CDT Hospital Encounter [facility] Diagnostic Imaging [address] [place], [place] [id number] Discharge Disposition: Discharge to home or self care Social History Tobacco Use Types Packs/Day Years Used Date Smoking Tobacco: Former Smokeless Tobacco: Never Alcohol Use Standard Drinks/Week Comments No 0 (1 standard drink = 0.6 oz pur e alcohol) Comments No Sex and Gender Information Value Date Recorded Sex Assigned at Not on file 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 10 tablet 08/15/2017 08/20/2017 albuterol HFA (PROVENTIL HFA,VENTOLIN HFA) 90 mcg/actuation [...] and drink daily. 527 g 08/15/2017 10/29/2020 rivaroxaban (XARELTO) 10 mg tablet Take 20 [...] Diagnosis Comments XR CHEST 1 VIEW ED 08/14/2017 8:11 PM CDT documented in this encounter Results * XR Chest 1 Vw Portable (08/14/2017 [...] failure.. Electronically signed by: Manohar Quigley M.D. Frankie Haider MD IMG XR PROCEDURES Final Resu lt documented in this encounter Visit Diagnoses Not on filedocumented in this encounter Care Teams Director Validation Relationship Specialty Start Date End Date Lavonne Hathaway MD [facility] [place] [address] PCP - General 08/16/16 08/17/17 Liu Jerez MD [facility] [place] [address] Consulting Physician Gastroenterology 07/28/17 [place] [address] [facility] [address] [place] [address] Consulting Physician Pulmonary Disease 08/03/17 documented as of this encounter
--- OUTSIDE RECORDS SUMMARY | 2024-04-26 04:28 | XMS_ITS | Encounter Summary ---
Author Organization [facility] Address [address] [facility] [address] [place] [address] Care Team Providers Care Exhibit Builder Name Role Phone Lavonne Hathaway MD Primary Care Provider [phone] Liu Jerez MD Unavailable Albert Corbin MD Unavailable [phone] Encounter Details Date Type Department Care Team (Late st Contact Info) Description 08/08/2017 Telephone [facility] [address] [facility] [address] [place] [address] [place]rez [place] [id number] [place] [address] [address] [place] [address] Social History Tobacco Use Types Packs/Day Years Used Date Smoking Tobacco: Former Smokeless Tobacco: Never Alcohol Use Standard Drinks/Week Comments No 0 (1 standard drink = 0.6 oz pur e alcohol) Comments No Sex and Gender Information Value Date Recorded Sex Assigned at Not on file 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 Gender Identity Not on file Sexual Orientation Not on file documented as of this encounter Miscellaneous Notes * Telephone Encounter - Dominique Hawkins MA - 08/10/2017 11:01 AM CDT Pt called and I gave her the results to her test * Telephone Encounter - Christin Cates MA - 08/10/2017 10:34 AM CDT LMOM on the new number the provided (chart is updated) asking pt to return my call * Telephone Encounter - Christin Cates MA - 08/08/2017 3:44 PM CDT LM with asking to have pt return my call * Telephone Encounter - Christin Cates MA - 08/08/2017 3:43 PM CDT ----- Message from Liu Jerez MD sent at 08/05/2017 5:03 AM CDT ----- Inform patient that gastric and duodenal biopsies are benign. documented in this encounter Plan of Treatment Not on file documented as of this encounter Visit Diagnoses Not on filedocumented in this encounter Care Teams Exhibit Builder Relationship Specialty Start Date End Date Lavonne Hathaway MD [address] [place] [address] [place] [address] PCP - General 08/16/16 08/17/17 Liu Jerez MD [address] [place] [address] [place] [address] Consulting Physician Gastroenterology 07/28/17 [place] [address] [facility] [address] [place] [address] Consulting Physician Pulmonary Disease 08/03/17 documented as of this encounter
--- OUTSIDE RECORDS SUMMARY | 2024-04-26 04:28 | XMS_ITS | Encounter Summary ---
Author Organization [facility] Healthcare Address [address] [place] [address] Care Team Providers Care Full Roll Inspector Name Role Phone Liu Jerez MD Unavailable [phone] Albert Corbin MD Unavailable Justen Gale MD Primary Care Provider Khris Arthur MD Unavailable [phone] Ko Melendez MD Unavailable [phone] John Paul Moyer MD Unavailable Encounter Details Date Type Department Care Team (Latest Contact Info) Description 10/27/2017 10:39 AM CDT - 10/27/2017 11:59 PM CDT Hospital Encounter [facility] Radiology [address] [facility] [place] [address] [place] [address] [address] [address] [place] [address] Discharge Disposition: Discharge to home or self care Social History Tobacco Use Types Packs/Day Years Used Date Smoking Tobacco: Former Smokeless Tobacco: Never Comments:remote tobacco use Alcohol Use Standard Drinks/Week Comments No 0 (1 standard drink = 0.6 oz pur e alcohol) Comments No Sex and Gender Information Value Date Recorded Sex Assigned at Not on file 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 Elo Aceves MD IMG MRI PROCEDURES Final Result documented in this encounter Visit Diagnoses Not on filedocumented in this encounter Care Teams Full Roll Inspector Relationship Specialty Start Date End Date Justen Gale MD 2 [facility] [address] [place] [address] PCP - General 10/09/17 Liu Jerez MD Consulting Physician Gastroenterology 07/28/17 [place] [address] [facility] [address] [place] [address] Consulting Physician Pulmonary Disease 08/03/17 Khris Arthur MD [address] [facility] [address] [place] [address] Medical Oncologist/Instructional Services Librarian Medical Oncology 10/23/17 [place] [address] [facility] [address] [place] [address] Surgeon Orthopedic Surgery 10/23/17 [place] [address] [facility] [address] [place] [address] Consulting Physician Pain Management 10/23/17 documented as of this encounter
--- OUTSIDE RECORDS SUMMARY | 2024-04-26 04:28 | XMS_ITS | Encounter Summary ---
Author Organization [facility] Healthcare Address [address] [place] [address] Care Team Providers Care Hoof And Shoe Inspector Name Role Phone Liu Jerez MD Unavailable [phone] Albert Corbin MD Unavailable Justen Gale MD Primary Care Provider Encounter Details Date Type Department Care Team (Late st Contact Info) Description 08/18/2017 4:14 PM CDT - 08/18/2017 11:59 PM T Hospital Encounter [facility] Diagnostic Imaging [address] [place] [address] [place] [address] [facility] [place] [address] Discharge Disposition: Discharge to home or self care Social History Tobacco Use Types Packs/Day Years Used Date Smoking Tobacco: Former Smokeless Tobacco: Never Alcohol Use Standard Drinks/Week Comments No 0 (1 standard drink = 0.6 oz pur e alcohol) Comments No Sex and Gender Information Value Date Recorded Sex Assigned at Not on file 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 Devonte Cruz MD IMG XR PROCEDURES Deann l Result documented in this encounter Visit Diagnoses Not on filedocumented in this encounter Care Teams Hoof And Shoe Inspector Relationship Specialty Start Date End Date Justen Gale MD [address] [address] PCP - General 08/18/17 08/22/17 Liu Jerez MD Consulting Physician Gastroenterology 07/28/17 [place] [address] [facility] [address] [place] [address] Consulting Physician Pulmonary Disease 08/03/17 documented as of this encounter
--- OUTSIDE RECORDS SUMMARY | 2024-04-26 04:28 | XMS_ITS | Encounter Summary ---
Author Organization [facility] Address [address] [place] [address] Phone Care Team Providers Care Foundation Drill Operator Name Role Phone Liu Jerez MD Unavailable [phone] Albert Corbin MD Unavailable Justen Gale MD Primary Care Provider [phone] Encounter Details Date Type Department Care Team (Late st Contact Info) Description 10/13/2017 Orders Only [facility] Oncology [address] [facility] 7[address] [place] [address] [place] [address] Khris Arthur MD [address] [place] [address] Malignant neoplasm of overlapping sites [...] on file 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 Gender Identity Not on file Sexual Orientation Not on file documented as of this encounter Plan of Treatment Not on file documented as of this encounter Results * (ABNORMAL) Comprehensive metabolic panel (01/16/2018 3:10 PM CDT) Sodium 139 135 - 145 mmol/L [facility] Potassium, pl 4.2 3.3 - 4.9 mmol/L [facility] Chloride 101 97 - 110 mmol/L [facility] CO2 28 22 - 32 mmol/L [facility] Anion gap 10 2 - 15 mmol/L [facility] BUN 14 8 - 25 mg/dL [facility] Creatinine 0.72 0.60 - 1.10 mg/dL [facility] Glucose 116 70 - 199 mg/dL [facility] Comment: Interpretive Data Fasting glucose >/= [...] 2017. Calcium 10.6(H) 8.5 - 10.3 mg/dL [facility] Bilirubin, total 0.6 0.1 - 1.2 mg/dL [facility] Protein, pl 8.5 6.5 - 8.5 g/dL [facility] Albumin 4.0 3.5 - 5.0 g/dL [facility] Alk phos 92 40 - 130 Units/L [facility] ALT 19 7 - 45 Units/L [facility] AST 22 10 - 45 Units/L [facility] Blood specimen (specimen) 01/16/2018 3:10 PM CDT 01/16/2018 3:34 PM CDT Narrative [facility] - 01/16/2018 4:20 PM CDT us Khris Arthur MD LAB BLOOD ORDERABLES Final Result [facility]ARY JANE ANGELES [facility] Department [place] [address] * (ABNORMAL) CBC with auto differential (01/16/2018 3:02 PM CDT) WBC 13.0(H) 3.8 - 9.8 K/cumm CERPUJA ANGELES Comment:Testing performed by : [facility], [address] [place] [id number] Hgb 12.8 12.1 - 15.1 g/dL MARY JANE ANGELES Comment:Testing performed by : [address] [address] Hct 39.3 36.1 - 44.3 % MARY JANE ANGELES Comment:Testing performed by : [address] [address] Plt 368 140 - 440 K/cumm MARY JANE ANGELES Comment:Testing performed by : [address] [address] MPV 7.4 6.8 - 10.4 fL CERPUJA BJ Comment:Testing performed by : [address] [address] RBC 4.68 3.90 - 5.00 M/cumm MARY JANE ANGELES Comment:Testing performed by : [address] [address] MCV 83.9 80.0 - 97.6 fL [facility]ERPUJA BJ Comment:Testing performed by : [address] [address] MCH 27.3 26.7 - 33.7 pg [facility]ERPUJA BJ Comment:Testing performed by : [address] [address] MCHC 32.5(L) 32.7 - 35.5 g/dL MARY JANE BJ Comment:Testing performed by : [address] [address] RDW CV 15.0(H) 11.8 - 14.6 % [facility] Comment:Testing performed by : [facility] [place] [facility], [address] [facility] [address] NRBC abs 0.00 0.00 - 0.01 K/cumm [facility] Comment:Testing performed by : [facility], [address] [facility] [id number] Blood specimen (specimen) 01/16/2018 3:02 PM CDT 01/16/2018 3:06 PM CDT Narrative [facility] - 01/16/2018 3:09 PM CDT us Khris Arthur MD LAB BLOOD ORDERABLES Final Result [facility] Department [place] [address] documented in this encounter Visit Diagnoses Diagnosis Malignant neoplasm of overlapping sites of left female breast, unspecified estrogen receptor status (HCC)- Primary Malignant neoplasm of overlapping sites of left female breast, unspecified estrogen receptor status (HCC) documented in this encounter Care Teams Foundation Drill Operator Relationship Specialty Start Date End Date Justen Gale MD 2 [facility] [address] [place] [address] PCP - General 10/09/17 Liu Jerez MD Consulting Physician Gastroenterology 07/28/17 [place] [address] [facility] [address] [place] [address] Consulting Physician Pulmonary Disease 08/03/17 documented as of this encounter
--- OUTSIDE RECORDS SUMMARY | 2024-04-26 04:29 | XMS_ITS | Encounter Summary ---
Author Organization [facility] Address [address] [address] Care Team Providers Care Server Software Engineer Name Role Phone Lavonne Hathaway MD Primary Care Provider [phone] Reason for Visit * Reason Comments New Patient Pain * Orthopedic (Routine) - Closed Specialty Diagnoses / Procedures Referred By Elyssa benavides Referred To Contact Orthopedic Surgery Diagnoses Lumbago back pain clindesk Pt aware she needs referral. She says she will fax it. left message to confirm appt Procedures [place] OFFICE OUTPATIENT NEW 10 MINUTES NEW PATIENT Lavonne Hathaway MD Phone: tel: fax: Ko Melendez MD [id number] [place] [id number] Phone: tel: fax: Referral ID Status Reason Start Date Expiration Date Visits Re quested Visits Authorized [id number] Closed 02/22/2017 08/23/2017 6 6 Encounter Details Date Type Department Care Team (Late st Contact Info) Description 02/24/2017 10:45 AM CDT Office Visit [facility] [address] [place] [address] [place] [address] [facility] [address] [address] [place] [address] Fusion of spine of lumbar region (Primary Dx); Acute left-sided low back pain with left-sided sciatica; Obesity, morbid, BMI 50 or higher (CMS/HCC) Social History Tobacco Use Types Packs/Day Years Used Date Smoking Tobacco: Former Alcohol Use Standard Drinks/Week Comments No 0 (1 standard drink = 0.6 oz pur e alcohol) Comments Unknown Sex and Gender Information Value Date Recorded Sex Assigned at Not on file Legal Sex Female 12:24 AM [employer]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[employer] Gender Identity Not on file Sexual Orientation Not on file documented as of this encounter Last Filed Vital Signs Vital Sign Reading Time Taken Comments Blood Pressure - - Pulse - - Temperature - - Respiratory Rate - - Oxygen Saturation - - Inhaled Oxygen Concentration - - Weight 132.9 kg (293 lb) 02/24/2017 11:38 AM CDT Height 154.9 cm (5' 1 ) 02/24/2017 11:38 AM CDT Body Mass Index 55.36 02/24/2017 11:38 AM CDT documented in this encounter Ordered Prescriptions Prescription Sig Dispense Quantity Refills Last Filled Start Date End Date gabapentin (NEURONTIN) 300 mg capsule Take 1 capsule (300 mg total) by mouth 3 (three) times a day. 90 capsule 1 02/24/2017 8 HYDROcodone-acetam inophen (NORCO) 5-325 mg per tabletIndications: Pain Take 1-2 tablets every 4 hours as needed for pain 60 tablet 02/24/2017 8 documented in this encounter Progress Notes * Ko Melendez MD - 02/24/2017 10:45 AM CDT Images from the original note were not included. NEW PATIENT VISIT Subjective CHIEF COMPLAINT She had concerns including Pain of the Lumbar Spine and New Patient. HISTORY OF PRESENT ILLINESS Back and neck pain This is my 1st clinical contact with this patient who is 61-year-old female was hospitalized just about a month ago with some back and lower extremity symptoms. However at the predominantly had lowerextremity symptoms and therefore Dr. Cronin was consulted there is some mentions in notes of her admitting physician at that time and also weight more that I may be involved in her care but I never really saw her to my knowledge neither are my notes in there in any case right now she reports low back pain and bilateral lower extremity pain associated with some stiffness for the last 2 monthsshe tells me that her legs feel like they do not work anymore and she also has some numbness of both the hands she has claudication upon walking 1 block and she also has some night pain. Past medical history is significant she has diagnosed with breast cancer and in the recent visit toher oncologist for suspected has having metastasis but whether any workup for this was done are notI am not too sure she also is diabetic and has a history of neuropathy in the recent hospitalization mentioned above was some mentioned about the she requiring a EMG nerve conduction studies that wasnot done when she was in the hospital but subsequently she tells me that she had the stents done [facility] but the results of this are not available. To the best of her knowledge with diagnosed with tendinitis of the leg at that time. So this consultation is requested because of continued symptoms bad enough that currently she is limping is also noticed that during the hospitalization as above an MRI scan of the lumbar spine was requested but never done because of her body habitus. She has a BMI of 55 so she obviously is grossly overweight. Pain Assessment Pain Assessment: 0-10 Pain Score: 7 Pain Location: Back (Lumbar) Pain Orientation: Left Pain Descriptors: Aching, Nagging, Throbbing, Sharp, Shooting Pain Frequency: Constant/continuous Pain Onset: Ongoing Clinical Progression: Gradually worsening Result of Injury: No Work-Related Injury: No PAST MEDICAL HISTORY She has a past medical history of Adiposity; Depression; Disorder of thyroid; OTHER MEDICAL; OTHER MEDICAL; Hypertension; and Osteoarthritis. PAST SURGICAL HISTORY She has a past surgical history that includes Other surgical history (2012); Cholecystectomy; Inguinal Hernia Repair; Cholecystectomy; Oophorectomy; Hernia repair; Knee Arthroplasty; Knee Arthroplasty; Cholecystectomy; Other surgical history; section; Inject Abscess Catheter (N/A, 11/26/2014); Inject Abscess Catheter (N/A, 11/26/2014); Inject Abscess Catheter (N/A, 11/14/2014); US Soft TissueAbscess Drain (N/A, 12/11/2014); Abscess Tube Exchange (N/A, 11/05/2014); Inject Abscess Catheter (N/A, 11/05/2014); US Soft Tissue Abscess Drain (N/A, 10/24/2014); and Fine Needle Aspiration W Image Guidance (N/A, 07/25/2014). MEDICATIONS She has a current medication list which includes the following prescription(s): aspirin low dose, gabapentin, hydrocodone-acetaminophen, lisinopril, methimazole, metoprolol, oxybutynin, requip, and tramadol. ALLERGIES She is allergic to cephalosporins; ceftriaxone; and metoclopramide. SOCIAL HISTORY She reports that she has quit smoking. She does not have any smokeless tobacco history on file. Shereports that she does not drink alcohol or use drugs. FAMILY HISTORY Her family history includes Breast cancer in her sister; Diabetes in her mother; Heart attack in her brother; Heart disease in her mother; Heart failure in her mother; Other in her father, mother, and other; Prostate cancer in her father and father; Stent in her brother; Stroke in her mother. REVIEW OF SYSTEMS Review of Systems Constitutional: Negative for activity change and diaphoresis. Eyes: Negative for visual disturbance. Respiratory: Negative for apnea, chest tightness and shortness of breath. Gastrointestinal: Positive for abdominal pain. Genitourinary: Negative for dysuria. Musculoskeletal: Positive for back pain, gait problem and myalgias. Allergic/Immunologic: Negative for food allergies. Neurological: Negative for headaches. Psychiatric/Behavioral: Negative for behavioral problems. Objective PHYSICAL EXAM Ht 154.9 cm (5' 1 ) Wt 132.9 kg (293 lb) BMI 55.36 kg/m?? Ortho Exam Physical examination overweight the 61-year-old female with a BMI of 55. She obviously is limping because of low back pain she has a lot more low back pain and lower extremity pain but this significant lower extremity weakness associated with claudication upon walking about a block. Scars of for a right total knee are notice and she is very happy with the results of that but beyond that her sensory motor reflex exam is normal no atrophy prefers circulation appears adequate no lymphedema. REVIEW OF X-RAYS/STUDIES/LABS The workup available so far includes a CT scan of the thorax seek spine and also the lumbar spine. This is actually extrapolated from a chest and abdominal CT. The CT scan does not show any evidence of metastasis as mentioned above this is a history of EMG nerve conductions test having with performbut I do not have results of the same. Assessment/Plan Karly was seen today for new patient and pain. Diagnoses and all orders for this visit: Fusion of spine of lumbar region - Dexa Appendicular Bone Density; Future Other orders - HYDROcodone-acetaminophen (NORCO) 5-325 mg per tablet; Take 1-2 tablets every 4 hours as needed for pain - gabapentin (NEURONTIN) 300 mg capsule; Take 1 capsule (300 mg total) by mouth 3 (three) times a day. Based on above my 1st prior here would be to rule out metastasis am scheduling her for bone scan MRI scan lumbar spine also appears necessary but to my knowledge the only MRI scan within the [facility] system that can accommodate a patient of her size at [facility] and she already is in the side 1 neck works I would suggest she get the [facility] and contact me for results. Arrangements to have both of the test was done will see her back for follow-up after the same I would like to rule outmetastasis before proceeding further and of course if we see any other pathology on the MRI scan such as stenosis that would be addressed as well she also requested referral to a pain management will refer her to Dr. reza or for the same. In the meantime prescription is given for combination of Vicodin and gabapentin for pain relief. Plan As above Ko Melendez MD [employer] documented in this encounter Plan of Treatment Not on file documented as of this encounter Visit Diagnoses Diagnosis Fusion of spine of lumbar region- Primary Acute left-sided low back pain with left-sided sciatica Obesity, morbid, BMI 50 or higher (HCC) documented in this encounter Discontinued Medications Medication Sig Discontinue Reason Start Date End Da te metoprolol (LOPRESSOR) 25 mg tablet take 12.5 mg twice daily Duplicate order 07/19/2013 02/24/2017 rivaroxaban (XARELTO) tablet take 1 tablet by oral route every day with the evening meal Duplicate order 07/19/2013 02/24/2017 rivaroxaban (XARELTO) tablet take 1 tablet by oral route every day with the evening meal Duplicate order 08/01/2013 02/24/2017 rivaroxaban (XARELTO) tablet take 1 tablet by oral route every day with the evening meal Duplicate order 08/19/2013 02/24/2017 rOPINIRole (REQUIP) 1 mg tablet take 1 tablet by oral route every AM, Midday and in PM with 5mg PM dose Duplicate order 03/26/2013 02/24/2017 rOPINIRole (REQUIP) 5 mg tablet take 1 tablet by oral route at bedtime Duplicate order 03/12/2013 02/24/2017 rOPINIRole (REQUIP) 5 mg tablet take 1 tablet by oral route take with 1mg for total 6mg at bedtime Duplicate order 08/01/2013 02/24/2017 traMADol (ULTRAM) 50 mg tablet take 1 tablet by oral route every 6 hours as needed Duplicate order 07/19/2013 02/24/2017 traMADol (ULTRAM) 50 mg tablet take 1 tablet by oral route every 6 hours as needed Duplicate order 08/01/2013 02/24/2017 methIMAzole (TAPAZOLE) 10 mg tablet take 10 mg daily for 2 weeks, then 5 mg daily Duplicate order 07/19/2013 02/24/2017 lisinopril (PRINIVIL,ZESTRIL) 20 mg tablet take 1 tablet by oral route every day Duplicate order 03/12/2013 02/24/2017 lisinopril (PRINIVIL,ZESTRIL) 20 mg tablet take 1 tablet by oral route every day Duplicate order 08/01/2013 02/24/2017 documented as of this encounter Care Teams Server Software Engineer Relationship Specialty Start Date End Date Lavonne Hathaway MD [facility] [place] [address] PCP - General 08/16/16 08/17/17 documented as of this encounter
--- OUTSIDE RECORDS SUMMARY | 2024-04-26 04:29 | XMS_ITS | Encounter Summary ---
Author Organization [facility] Healthcare Address [address] [place] [address] Care Team Providers Care Tugboat Pilot Name Role Phone Lavonne Hathaway MD Primary Care Provider [phone] Encounter Details Date Type Department Care Team (Late st Contact Info) Description 01/13/2017 7:01 PM CDT - 01/14/2017 4:18 AM CDT Emergency [facility] Department [address] [place] [address] Vincent Goel MD [facility] [place] [address] Discharge Disposition: Discharge to home or self care Social History Tobacco Use Types Packs/Day Years Used Date Smoking Tobacco: Former Alcohol Use Standard Drinks/Week Comments No 0 (1 standard drink = 0.6 oz pur e alcohol) Comments Unknown Sex and Gender Information Value Date Recorded Sex Assigned at Not on file 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 Gender Identity Not on file Sexual Orientation Not on file documented as of this encounter Medications at Time of Discharge aspirin (ASPIRIN LOW DOSE) 81 mg tablet take 1 tablet (81MG) by oral route every day 0 05/11/2012 07/27/2017 exemestane (AROMASIN) 25 mg tablet TAKE 1 TABLET BY MOUTH DAILY AFTER A MEAL 08/09/2016 12/13/2017 lisinopril (PRINIVIL,ZESTRIL ) 20 mg tablet take 1 tablet by oral route every day 0 0 03/12/2013 02/24/2017 lisinopril (PRINIVIL,ZESTRIL ) 20 mg tablet take 1 tablet by oral route every day 0 0 08/01/2013 02/24/2017 lisinopril (PRINIVIL,ZESTRIL ) 20 mg tablet take 1 Tablet (20MG) by oral route every day 0 05/11/2012 12/12/2017 lisinopril (PRINIVIL,ZESTRIL ) 20 mg tablet Take 20 mg by mouth. 05/11/2012 09/12/2021 methIMAzole (TAPAZOLE) 10 mg tablet take 10 mg daily for 2 weeks, then 5 mg daily 0 0 07/19/2013 02/24/2017 methIMAzole (TAPAZOLE) 5 mg tablet take 1 tablet by oral route every day 0 0 08/19/2013 07/27/2017 metoprolol (LOPRESSOR) 25 mg tablet take 0.5 tablet by oral route twice a day 0 0 08/19/2013 07/27/2017 metoprolol (LOPRESSOR) 25 mg tablet take 12.5 mg twice daily 0 0 07/19/2013 02/24/2017 oxybutynin (DITROPAN) 5 mg tablet take 1 tablet by oral route every day 0 0 12/12/2013 01/26/2023 oxybutynin (DITROPAN) 5 mg tablet Take 5 mg by mouth. 12/12/2013 12/12/2017 rivaroxaban (XARELTO) tablet take 1 tablet by oral route every day with the evening meal 0 0 08/19/2013 02/24/2017 rivaroxaban (XARELTO) tablet take 1 tablet by oral route every day with the evening meal 0 0 08/01/2013 02/24/2017 rivaroxaban (XARELTO) tablet take 1 tablet by oral route every day with the evening meal 0 0 07/19/2013 02/24/2017 rOPINIRole (REQUIP) 1 mg tablet take 1 tablet by oral route every AM, Midday and in PM with 5mg PM dose 90 0 03/26/2013 02/24/2017 rOPINIRole (REQUIP) 5 mg tablet take 1 tablet by oral route at bedtime 0 0 03/12/2013 02/24/2017 rOPINIRole (REQUIP) 5 mg tablet take 1 tablet by oral route take with 1mg for total 6mg at bedtime 0 0 08/01/2013 02/24/2017 rOPINIRole (REQUIP) 5 mg tablet take 1 tablet (5MG) by oral route every day at bedtime 0 05/11/2012 12/12/2017 traMADol (ULTRAM) 50 mg tablet take 1 Tablet by oral route 2 times every day if needed 0 0 03/12/2013 07/27/2017 traMADol (ULTRAM) 50 mg tablet take 1 tablet by oral route every 6 hours as needed 0 0 08/01/2013 02/24/2017 traMADol (ULTRAM) 50 mg tablet take 1 tablet by oral route every 6 hours as needed 0 0 07/19/2013 02/24/2017 documented as of this encounter Discharge Disposition Disposition Code Departure Means Destination Discharge to home or self care documented in this encounter Plan of Treatment Not on file documented as of this encounter Procedures Procedure Name Priority Date/Time Associated Diagnosis Comments CT ABDOMEN PELVIS WO CONTRAST Routine 01/14/2017 5:01 AM CDT DISCHARGE LABORATORY CUMULATIVE REPORT 01/14/2017 12:00 AM CDT URINALYSIS AND REFLEX TO MICROSCOPIC AND CULTURE STAT 01/13/2017 11:15 PM CDT URINALYSIS, MICROSCOPIC ONLY STAT 01/13/2017 11:15 PM CDT URINE CULTURE STAT 01/13/2017 11:15 PM CDT EGFR STAT 01/13/2017 9:30 PM CDT DIFFERENTIAL AUTO STAT 01/13/2017 9:3 0 PM CDT CBC WITH AUTO DIFFERENTIAL STAT 01/13/2017 9:30 PM CDT LIPASE STAT 01/13/2017 9:30 PM CDT AMYLASE STAT 01/13/2017 9:30 PM CDT COMPREHENSIVE METABOLIC PANEL STAT 01/13/2017 9:30 PM CDT documented in this encounter Results * CT Abdomen Pelvis WO Contrast (01/14/2017 5:01 AM CDT) Anatomical Region Laterality Modality Body N/A Computed Tomogra phy 01/14/2017 5:01 AM CDT Narrative 01/14/2017 5:01 AM CDT DATE OF EXAM: ??Jan 14 2017 12:01AM Acc#: ??[id number] ??ECT 0073 - CT Abd/Pel WO ?? DIAGNOSIS: ??ABD PAIN CLINICAL HISTORY: ?? Pain RESULT: EXAM: CT abdomen and pelvis without contrast DATE: 01/13/2017 CLINICAL HISTORY: Periumbilical abdominal pain, history of hernia repair cholecystectomy, section and breast cancer with bilateral mastectomy TECHNIQUE: Computed tomographic images of the abdomen and pelvis were obtained in the axial plane without the administration of contrast. Coronal and sagittal reformatted images were performed. ??Comparison was made to a prior CT abdomen and pelvis with contrast from the previous day. FINDINGS: The lung bases are clear. ??The gallbladder is surgically absent. ??A 4 mm nonobstructing calculus is again identified in the right upper pole collecting system. ??A 5 mm nonobstructing calculus is again identified in the left lower pole collecting system. ??The previously described small hypodense lesion in the lateral aspect of the upper pole of the right kidney is not as well visualized on this noncontrast exam. ??The liver, spleen, pancreas and adrenal glands are normal for a noncontrast exam. ??Scattered diverticula are present throughout the colon without surrounding inflammation. ??Interposition of the hepatic flexure of the colon between the liver and the diaphragm is again identified. ??There is no bowel loop dilatation or bowel wall thickening. A normal appendix is present in the right lower quadrant. There is no free fluid or air. The contours of the vascular structures of the abdomen and pelvis are normal for a noncontrast exam. There is no abdominal or pelvic adenopathy. The bladder is normal. ??A small hypodense lesion is again identified in the region of the cervix and likely represents a nabothian cyst. ??Surgical clips or hernia mesh markers are again seen in the anterior lower abdominal wall. ??Diastases of the rectus abdominis muscles is again visualized. 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 IMPRESSION: 1. ??Nonobstructing bilateral nephrolithiasis. 2. ??Known 8 mm hypodense right renal lesion not well visualized on the current noncontrast exam. 3. ??Diverticulosis without evidence of diverticulitis. 4. ??Cholecystectomy. A stat report was issued by [facility] on 01/14/2017 at 0022. Electronically signed by: Raqeul Burk M.D. ? CARD FIXER: ??PSC TRANSCRIBE DATE/TIME: ??Jan 14 2017 ??9:28A RADIOLOGIST: ??RAQUEL BURK M.D. ??READ ON: ??Jan 14 2017 ??9:30A ORDERING DR: VINCENT GOEL M.D. THIS DOCUMENT HAS BEEN ELECTRONICALLY SIGNED BY: ??SERJIO Varela, RAQUEL ??ON: ??Jan 14 2017 ??9:28A Attending: ??JANNET, ??VINCENT Requesting: ??JANNET, ??VINCENT Requesting Fax: ??[phone] Attending Fax: ??[phone] Attending ID: ??[id number] Requesting ID: ??[id number] Report To 1 ID: ?? Report To 1 Name: ??, ?? Report To 1 FAX: ??-- Report To 2 ID: ?? Report To 2 Name: ??, ?? Report To 2 FAX: ??-- NextGen Order #: ?? Procedure Note Miscellaneous, Not In File / Provider, MD Tyler - 01/14/2017 DATE OF EXAM: Jan 14 2017 12:01AM Acc#: [id number] ECT 0073 - CT Abd/Pel WO DIAGNOSIS: ABD PAIN CLINICAL HISTORY: Pain RESULT: EXAM: CT abdomen and pelvis without contrast DATE: 01/13/2017 CLINICAL HISTORY: Periumbilical abdominal pain, history of hernia repair cholecystectomy, section and breast cancer with bilateral mastectomy TECHNIQUE: Computed tomographic images of the abdomen and pelvis were obtained in the axial plane without the administration of contrast. Coronal and sagittal reformatted images were performed. Comparison was made to a prior CT abdomen and pelvis with contrast from the previous day. FINDINGS: The lung bases are clear. The gallbladder is surgically absent. A 4 mm nonobstructing calculus is again identified in the right upper pole collecting system. A 5 mm nonobstructing calculus is again identified in the left lower pole collecting system. The previously described small hypodense lesion in the lateral aspect of the upper pole of the right kidney is not as well visualized on this noncontrast exam. The liver, spleen, pancreas and adrenal glands are normal for a noncontrast exam. Scattered diverticula are present throughout the colon without surrounding inflammation. Interposition of the hepatic flexure of the colon between the liver and the diaphragm is again identified. There is no bowel loop dilatation or bowel wall thickening. A normal appendix is present in the right lower quadrant. There is no free fluid or air. The contours of the vascular structures of the abdomen and pelvis are normal for a noncontrast exam. There is no abdominal or pelvic adenopathy. The bladder is normal. A small hypodense lesion is again identified in the region of the cervix and likely represents a nabothian cyst. Surgical clips or hernia mesh markers are again seen in the anterior lower abdominal wall. Diastases of the rectus abdominis muscles is again visualized. 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 IMPRESSION: 1. Nonobstructing bilateral nephrolithiasis. 2. Known 8 mm hypodense right renal lesion not well visualized on the current noncontrast exam. 3. Diverticulosis without evidence of diverticulitis. 4. Cholecystectomy. A stat report was issued by [facility] on 01/14/2017 at 0022. Electronically signed by: Raquel Burk M.D. CARD FIXER: [facility] TRANSCRIBE DATE/TIME: Jan 14 2017 9:28A RADIOLOGIST: RAQUEL BURK M.D. READ ON: Jan 14 2017 9:30A ORDERING DR: VINCENT GOEL M.D. THIS DOCUMENT HAS BEEN ELECTRONICALLY SIGNED BY: RAQUEL BURK M.D. ON: Jan 14 2017 9:28A Attending: VINCENT GOEL Requesting: VINCENT GOEL Requesting Attending Attending ID: [id number] Requesting ID: [id number] Report To 1 ID: Report To 1 Name: , Report To 1 FAX: -- Report To 2 ID: Report To 2 Name: , Report To 2 FAX: -- NextGen Order #: Vincent Goel MD IMG CT PROCEDURES Final Result * DISCHARGE LABORATORY CUMULATIVE REPORT (01/14/2017 12:00 AM CDT) Narrative 01/14/2017 12:00 AM CDT Ordered by an unspecified provider. Historical Provider LAB BLOOD ORDERABLES Deann l Result * Urine culture (01/13/2017 11:15 PM CDT) Report Final Report: Insignifican t growth based on current clinical standards. MARY JANE Comment:Testing performed by : [facility], [address] [place] [address] Urine 01/13/2017 11:1 5 PM CDT 01/14/2017 3:13 AM CDT Narrative MARY JANE - 01/15/2017 7:43 AM CDT Vincent Goel MD LAB MICROBIOLOGY - GENER AL ORDERABLES Final Result [facility] [address] Department [place] [address] * (ABNORMAL) Urinalysis, microscopic only (01/13/2017 11:15 PM CDT) RBC, ur 2 0 - 3 /[facility] 50(H) 0 - 5 /HPF [facility] Bacteria, ur 0 [facility] Epithelial cells, renal, ur <1(H) 0 - 0 /HPF [facility] Epithelial cells, squamous, ur 4 /LPF [facility] Mucus, ur Present [facility] Hyaline casts, ur 1(H) 0 - 0 /LPF [facility] Granular casts, ur 1(H) 0 - 0 /LPF [facility] Urine 01/13/2017 11:1 5 PM CDT 01/14/2017 12:48 AM CDT Vincent Goel MD LAB URINE ORDERABLES Fin al Result Performing Organization Address City/[facility] [place] [address] [address] Department [place] [address] * (ABNORMAL) Urinalysis reflex to microscopic and culture (01/13/2017 11:15 PM CDT) Color, ur Yellow [facility] Clarity, ur Clear [facility] Specific gravity, ur 1.020 1.001 - 1.033 [facility] pH, ur 5.0 5.0 - 8.0 [facility] Protein, ur ql Negative Negative [facility] Glucose, ur ql Negative Negative [facility] Ketones, ur Negative Negative [facility] Bilirubin, ur Negative Negative [facility] Blood, ur 1+(A) Negative [facility] Urobilinogen, ur <2.0 <2.0 [facility] Nitrites, ur Negative Negative [facility] Leukocyte esterase, ur 4+(A) Negative [facility] Urine 01/13/2017 11:1 5 PM CDT 01/14/2017 12:48 AM CDT Vincent Goel MD LAB MICROBIOLOGY - GENER AL ORDERABLES Final Result Performing Organization Address [facility] de Phone Number MARY JANE [address] [address] Department [place] [address] * eGFR (01/13/2017 9:30 PM CDT) eGFR 84 mL/min/1.7 3 m2 [facility] Comment: Interpretive Data Reference Interval Normal ?>/= 90 mL/min/1.73m2 Mildly decreased* ? 60 - 89 mL/min/1.73m2 Mildly to moderately decreased ?45 - 59 mL/min/1.73m2 Moderately to severely decreased ??30 - 44 mL/min/1.73m2 Severely decreased ?15 - 29 mL/min/1.73m2 Kidney Failure ?< 15 ??mL/min/1.73m2 *Relative to young adult level If -Indonesian multiply value by 1.16. Estimated glomerular filtration [...] was last reviewed 2015. Blood specimen (specimen) 01/13/2017 9:30 PM CDT 01/13/2017 9:43 PM CDT us Enmanuel Dubon MD LAB BLOOD ORDERABLES Final Result [facility] [address] Department [place] [address] * Comprehensive metabolic panel (01/13/2017 9:30 PM CDT) Sodium 140 135 - 145 mmol/L [facility] Potassium, pl 4.4 3.5 - 5.1 mmol/L [facility] CO2 24 22 - 32 mmol/L [facility] BUN 14 8 - 24 mg/dL [facility] Glucose 146 70 - 199 mg/dL [facility] Creatinine 0.77 0.60 - 1.30 mg/dL [facility] Calcium 9.8 8.4 - 10.5 mg/dL [facility] Chloride 106 100 - 114 mmol/L [facility] Albumin 3.3 3.2 - 4.8 g/dL [facility] AST 26 7 - 40 Units/L [facility] ALT 27 1 - 45 Units/L [facility] Alk phos 57 30 - 110 Units/L [facility] Bilirubin, total 0.40 0.10 - 1.30 mg/dL [facility] Protein, pl 7.6 6.0 - 8.3 g/dL [facility] Anion gap 14 8 - 16 mmol/L [facility] Blood specimen (specimen) 01/13/2017 9:30 PM CDT 01/13/2017 9:41 PM CDT Enmanuel Dubon MD LAB BLOOD ORDERABLES Final Result Performing Organization Address City/[facility]/ZIP Co de Phone Number [id number] [address] [facility] [place] [address] * Lipase (01/13/2017 9:30 PM CDT) Lipase 33 20 - 50 Units/L [facility] Blood specimen (specimen) 01/13/2017 9:30 PM CDT 01/13/2017 9:41 PM CDT Enmanuel Dubon MD LAB BLOOD ORDERABLES Final Result Performing Organization Address [facility] Co de Phone Number BCPUJA [address] [facility] [place] [address] * Amylase (01/13/2017 9:30 PM CDT) Amylase 57 35 - 100 Units/L [facility] Blood specimen (specimen) 01/13/2017 9:30 PM CDT 01/13/2017 9:41 PM CDT Enmanuel Dubon MD LAB BLOOD ORDERABLES Final Result Performing Organization Address City/[facility] Co de Phone Number MARY JANE AR[place] [address] [address] [facility] [place] [address] * (ABNORMAL) CBC with auto differential (01/13/2017 9:30 PM CDT) WBC 11.05(H) 3.80 - 9.90 K/cumm [facility] RBC 4.40 3.90 - 5.20 M/cumm [facility] Hgb 12.5 11.9 - 15.5 g/dL [facility] Hct 40.0 35.6 - 45.5 % [facility] MCV 90.9 81.3 - 96.4 fL [facility] MCH 28.4 27.1 - 33.3 pg [facility] MCHC 31.3(L) 32.3 - 35.7 g/dL [facility] RDW CV 14.1 11.1 - 14.9 % [facility] RDW SD 47.4 35.7 - 48.1 fL [facility] Plt 316 150 - 400 K/cumm [facility] MPV 9.9 9.1 - 12.3 fL [facility] NRBC 0.0 0.0 - 0.2 % [facility] NRBC abs 0.00 0.00 - 0.01 K/cumm [facility] Blood specimen (specimen) 01/13/2017 9:30 PM CDT 01/13/2017 9:41 PM CDT us Enmanuel Dubon MD LAB BLOOD ORDERABLES Final Result MARY JANE [address] Department [place] [address] * (ABNORMAL) Differential, auto (01/13/2017 9:30 PM CDT) Neutrophil pct 67.1 % [facility] Imm gran pct 0.4 % [facility] Lymphocyte pct 20.6 % [facility] Monocyte pct 8.3 % [facility] Eosinophil pct 0.4 % [facility] Basophil pct 0.3 % [facility] Neutrophil abs 7.42(H) 1.70 - 6.50 K/cumm [facility] Imm gran abs 0.04 0.00 - 0.10 K/cumm [facility] Lymphocyte abs 2.28 0.80 - 3.30 K/cumm [facility] Monocyte abs 0.92(H) 0.20 - 0.80 K/cumm [facility] Eosinophil abs 0.36 0.00 - 0.50 K/cumm [facility] Basophil abs 0.03 0.00 - 0.10 K/cumm MARY JANE ARNOLD Blood specimen (specimen) 01/13/2017 9:30 PM CDT 01/13/2017 9:41 PM CDT us Enmanuel Dubon MD LAB BLOOD ORDERABLES Final Result MARY JANE [address] Department [place] [address] documented in this encounter Visit Diagnoses Not on filedocumented in this encounter Care Teams Tugboat Pilot Relationship Specialty Start Date End Date Lavonne Hathaway MD [address] [place] [address] [place] [address] PCP - General 08/16/16 08/17/17 documented as of this encounter
--- OUTSIDE RECORDS SUMMARY | 2024-04-26 04:29 | XMS_ITS | Encounter Summary ---
Author Organization [facility] Healthcare Address [address] [place] [address] Care Team Providers Care Smt Technician Name Role Phone Lavonne Hathaway MD Primary Care Provider [phone] Encounter Details Date Type Department Care Team (Late st Contact Info) Description 01/12/2017 12:58 PM CDT - 01/12/2017 8:37 PM CDT Emergency [facility] Emergency Department [address] [place] [address] [place], [address] [place] [address] Discharge Disposition: Discharge to home or self care Social History Tobacco Use Types Packs/Day Years Used Date Smoking Tobacco: Former Alcohol Use Standard Drinks/Week Comments No 0 (1 standard drink = 0.6 oz pur e alcohol) Comments Unknown Sex and Gender Information Value Date Recorded Sex Assigned at Not on file 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 Gender Identity Not on file Sexual Orientation [...] Diagnosis Comments CT ABDOMEN PELVIS W CONTRAST Routine 01/12/2017 8:44 PM CDT GLUCOSE POC Routine 01/12/2017 1:48 PM CDT EGFR STAT 01/12/2017 1:35 PM CDT DIFFERENTIAL AUTO STAT 01/12/2017 1:3 5 PM CDT CBC WITH AUTO DIFFERENTIAL STAT 01/12/2017 1:35 PM CDT LIPASE STAT 01/12/2017 1:35 PM CDT COMPREHENSIVE METABOLIC PANEL STAT 01/12/2017 1:35 PM CDT DISCHARGE LABORATORY CUMULATIVE REPORT 01/12/2017 12:00 AM CDT documented in this encounter Results * CT Abdomen Pelvis W Contrast (01/12/2017 8:44 PM CDT) Anatomical Region Laterality Modality Body N/A Computed Tomogra phy 01/12/2017 8:44 PM CDT Narrative 01/12/2017 8:44 PM CDT DATE OF EXAM: ??Jan 12 2017 ??3:44PM Acc#: ??[id number] ??ECT 0074 - CT Abd/Pel W ?? DIAGNOSIS: ??ABD PAIN CLINICAL HISTORY: ?? Pain RESULT: EXAM: CT abdomen and pelvis with contrast DATE: 01/12/2017 3:44 PM CLINICAL HISTORY: Abdominal pain and diarrhea in a patient with history of prior cholecystectomy TECHNIQUE: After the uneventful intravenous administration of 94 mL Optiray 350, computed tomographic images of the abdomen and pelvis were obtained in the axial plane. Coronal and sagittal reformatted images were performed. ??Comparison was made to a prior CT abdomen and pelvis with contrast from 11/24/2015. FINDINGS: The lung bases are clear. ??The gallbladder is surgically absent. ??An 8 mm hypodense lesion in the lateral aspect of the upper pole of the right kidney is too small to characterize. ??A 4 mm nonobstructing calculus is present in the right upper pole collecting system. ??A 5 mm nonobstructing calculus is present in the left lower pole collecting system. ??The liver, spleen, pancreas and adrenal glands are normal. ??Scattered diverticula are present in the descending and sigmoid colon without surrounding inflammation. ??There is interposition of the hepatic flexure of the colon between the liver and diaphragm. ??The small bowel loops are normal without evidence of bowel loop dilatation or bowel wall thickening. A normal appendix is present in the right lower quadrant. There is no free fluid or air. The vascular structures of the abdomen and pelvis are patent. There is no abdominal or pelvic adenopathy. The bladder is normal. ??An 11 mm hypodense lesion in the region of the cervix (axial image 177) most likely represents a nabothian cyst. The uterus is otherwise normal in appearance. ??Hernia mesh markers are again seen in the low anterior abdominal wall. ??Diastases of the rectus abdominis muscles is again identified. ??There is mild osteitis pubis. 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 ??There is mild multilevel degenerative disc disease in the lumbar spine. ??Bilateral facet osteoarthritis is present from L2-L3 to L5-S1 IMPRESSION: 1. ??No acute intra-abdominal process. 2. ??Nonobstructing bilateral nephrolithiasis. 3. ??8 mm hypodense right renal lesion is too small to characterize. 4. ??Diverticulosis without evidence of diverticulitis. 5. ??Small hypodense lesion in the cervix likely represents a nabothian cyst. Electronically signed by: Raquel Burk M.D. ? CLOTH SHRINKING TESTER: ??PSC TRANSCRIBE DATE/TIME: ??Jan 12 2017 ??4:06P RADIOLOGIST: ??RAQUEL BURK M.D. ??READ ON: ??Jan 12 2017 ??4:08P ORDERING DR: ERICK DAVIS M.D. THIS DOCUMENT HAS BEEN ELECTRONICALLY SIGNED BY: ??SERJIO Varela, RAQUEL ??ON: ??Jan 12 2017 ??4:06P Attending: ??GERDA, ??ERICK Requesting: ??GERDA, ??ERICK Requesting Fax: ??[phone] Attending Fax: ??[phone] Attending ID: ??[id number] Requesting ID: ??[id number] Report To 1 ID: ?? Report To 1 Name: ??, ?? Report To 1 FAX: ??-- Report To 2 ID: ?? Report To 2 Name: ??, ?? Report To 2 FAX: ??-- NextGen Order #: ?? Procedure Note Miscellaneous, Not In File / Provider, MD Tyler - 01/12/2017 DATE OF EXAM: Jan 12 2017 3:44PM Acc#: [id number] ECT 0074 - CT Abd/Pel W DIAGNOSIS: ABD PAIN CLINICAL HISTORY: Pain RESULT: EXAM: CT abdomen and pelvis with contrast DATE: 01/12/2017 3:44 PM CLINICAL HISTORY: Abdominal pain and diarrhea in a patient with history of prior cholecystectomy TECHNIQUE: After the uneventful intravenous administration of 94 mL Optiray 350, computed tomographic images of the abdomen and pelvis were obtained in the axial plane. Coronal and sagittal reformatted images were performed. Comparison was made to a prior CT abdomen and pelvis with contrast from 11/24/2015. FINDINGS: The lung bases are clear. The gallbladder is surgically absent. An 8 mm hypodense lesion in the lateral aspect of the upper pole of the right kidney is too small to characterize. A 4 mm nonobstructing calculus is present in the right upper pole collecting system. A 5 mm nonobstructing calculus is present in the left lower pole collecting system. The liver, spleen, pancreas and adrenal glands are normal. Scattered diverticula are present in the descending and sigmoid colon without surrounding inflammation. There is interposition of the hepatic flexure of the colon between the liver and diaphragm. The small bowel loops are normal without evidence of bowel loop dilatation or bowel wall thickening. A normal appendix is present in the right lower quadrant. There is no free fluid or air. The vascular structures of the abdomen and pelvis are patent. There is no abdominal or pelvic adenopathy. The bladder is normal. An 11 mm hypodense lesion in the region of the cervix (axial image 177) most likely represents a nabothian cyst. The uterus is otherwise normal in appearance. Hernia mesh markers are again seen in the low anterior abdominal wall. Diastases of the rectus abdominis muscles is again identified. There is mild osteitis pubis. 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 There is mild multilevel degenerative disc disease in the lumbar spine. Bilateral facet osteoarthritis is present from L2-L3 to L5-S1 IMPRESSION: 1. No acute intra-abdominal process. 2. Nonobstructing bilateral nephrolithiasis. 3. 8 mm hypodense right renal lesion is too small to characterize. 4. Diverticulosis without evidence of diverticulitis. 5. Small hypodense lesion in the cervix likely represents a nabothian cyst. Electronically signed by: Raquel Burk M.D. CLOTH SHRINKING TESTER: PSC TRANSCRIBE DATE/TIME: Jan 12 2017 4:06P RADIOLOGIST: RAQUEL BURK M.D. READ ON: Jan 12 2017 4:08P ORDERING DR: ERICK DAVIS M.D. THIS DOCUMENT HAS BEEN ELECTRONICALLY SIGNED BY: RAQUEL BURK M.D. ON: Jan 12 2017 4:06P Attending: ERICK DAVIS Requesting: ERICK DAVIS Requesting Attending Attending ID: [id number] Requesting ID: [id number] Report To 1 ID: Report To 1 Name: , Report To 1 FAX: -- Report To 2 ID: Report To 2 Name: , Report To 2 FAX: -- NextGen Order #: us Erick Davis MD IMG CT PROCEDURES Final Re sult * Glucose POC (01/12/2017 1:48 PM CDT) Glucose, POC 157 70 - 199 mg/dL MARY JANE Blood specimen (specimen) 01/12/2017 1:48 PM CDT 01/12/2017 1:48 PM CDT us Notinfile Unknown POINT OF CARE TEST ORDERABLES Final Result MARY JANE [id number] Department [place] [address] * eGFR (01/12/2017 1:35 PM CDT) eGFR 81 mL/min/1.7 3 m2 MARY JANE Comment: Interpretive Data Reference Interval Normal ?>/= 90 mL/min/1.73m2 Mildly decreased* ? 60 - 89 mL/min/1.73m2 Mildly to moderately decreased ?45 - 59 mL/min/1.73m2 Moderately to severely decreased ??30 - 44 mL/min/1.73m2 Severely decreased ?15 - 29 mL/min/1.73m2 Kidney Failure ?< 15 ??mL/min/1.73m2 *Relative to young adult level If -[place] multiply value by 1.16. Estimated glomerular filtration [...] was last reviewed 2015. Blood specimen (specimen) 01/12/2017 1:35 PM CDT 01/12/2017 1:44 PM CDT Erick Davis MD LAB BLOOD ORDERABLES Final Result Performing Organization Address City/[facility]/ZIP Co de Phone Number MARY JANE ARNOLD [address] [place] [address] * Comprehensive metabolic panel (01/12/2017 1:35 PM CDT) Sodium 136 135 - 145 mmol/L [facility] Potassium, pl 4.0 3.5 - 5.1 mmol/L [facility] CO2 25 22 - 32 mmol/L [facility] BUN 9 8 - 24 mg/dL [facility] Glucose 165 70 - 199 mg/dL [facility] Creatinine 0.79 0.60 - 1.30 mg/dL [facility] Calcium 9.9 8.4 - 10.5 mg/dL [facility] Chloride 102 100 - 114 mmol/L [facility] Albumin 3.4 3.2 - 4.8 g/dL [facility] AST 33 7 - 40 Units/L [facility] ALT 29 1 - 45 Units/L [facility] Alk phos 60 30 - 110 Units/L [facility] Bilirubin, total 0.50 0.10 - 1.30 mg/dL [facility] Protein, pl 8.2 6.0 - 8.3 g/dL [facility] Anion gap 13 8 - 16 mmol/L [facility] Blood specimen (specimen) 01/12/2017 1:35 PM CDT 01/12/2017 1:43 PM CDT Erick Davis MD LAB BLOOD ORDERABLES Final Result Performing Organization Address [facility]/ZIP Co de Phone Number MARY JANE ARNOLD [address] [place] [address] * Lipase (01/12/2017 1:35 PM CDT) Lipase 27 20 - 50 Units/L [facility] Blood specimen (specimen) 01/12/2017 1:35 PM CDT 01/12/2017 1:43 PM CDT Erick Davis MD LAB BLOOD ORDERABLES Final Result Performing Organization Address City/[facility]/ZIP Co de Phone Number MARY JANE ARNOLD [address] [place] [address] * (ABNORMAL) CBC with auto differential (01/12/2017 1:35 PM CDT) Pathologist [facility] WBC 9.09 3.80 - 9.90 K/cumm [facility] RBC 4.53 3.90 - 5.20 M/cumm [facility] Hgb 12.8 11.9 - 15.5 g/dL [facility] Hct 41.3 35.6 - 45.5 % [facility] MCV 91.2 81.3 - 96.4 fL [facility] MCH 28.3 27.1 - 33.3 pg [facility] MCHC 31.0(L) 32.3 - 35.7 g/dL [facility] RDW CV 14.2 11.1 - 14.9 % [facility] RDW SD 47.7 35.7 - 48.1 fL [facility] Plt 308 150 - 400 K/cumm [facility] MPV 9.6 9.1 - 12.3 fL [facility] NRBC 0.0 0.0 - 0.2 % [facility] NRBC abs 0.00 0.00 - 0.01 K/cumm [facility] Blood specimen (specimen) 01/12/2017 1:35 PM CDT 01/12/2017 1:43 PM CDT Erick Davis MD LAB BLOOD ORDERABLES Final Result Performing Organization Address City/[facility]/ZIP Co de Phone Number MARY JANE ARNOLD [address] [place] [address] * Differential, auto (01/12/2017 1:35 PM CDT) Neutrophil pct 65.7 % [facility] Imm gran pct 0.4 % [facility] Lymphocyte pct 22.7 % [facility] Monocyte pct 7.5 % [facility] Eosinophil pct 0.3 % [facility] Basophil pct 0.3 % [facility] Neutrophil abs 5.97 1.70 - 6.50 K/cumm [facility] Imm gran abs 0.04 0.00 - 0.10 K/cumm [facility] Lymphocyte abs 2.06 0.80 - 3.30 K/cumm [facility] Monocyte abs 0.68 0.20 - 0.80 K/cumm [facility] Eosinophil abs 0.31 0.00 - 0.50 K/cumm [facility] Basophil abs 0.03 0.00 - 0.10 K/cumm [facility] Blood specimen (specimen) 01/12/2017 1:35 PM CDT 01/12/2017 1:43 PM CDT us Erick Davis MD LAB BLOOD ORDERABLES Final Result MARY JANE [address] Department [place] [address] * DISCHARGE LABORATORY CUMULATIVE REPORT (01/12/2017 12:00 AM CDT) Narrative 01/12/2017 12:00 AM CDT Ordered by an unspecified provider. Historical Provider LAB BLOOD ORDERABLES Deann l Result documented in this encounter Visit Diagnoses Not on filedocumented in this encounter Care Teams Smt Technician Relationship Specialty Start Date End Date Lavonne Hathaway MD [address] [place] [address] [place] [address] PCP - General 08/16/16 08/17/17 documented as of this encounter
--- OUTSIDE RECORDS SUMMARY | 2024-04-26 04:29 | XMS_ITS | Encounter Summary ---
Author Organization [facility] Address [address] [place] [address] Phone Care Team Providers Care Managing Partner Name Role Phone Lavonne Hathaway MD Primary Care Provider + [phone] Liu Jerez MD Unavailable [phone] Albert Corbin MD Unavailable [phone] Justen Gale MD Primary Care Provider + [phone] Lavonne Hathaway MD Primary Care Provider + [phone] Justen Gale MD Primary Care Provider + [phone] [phone] Arthur MD Unavailable + [phone] Ko Melendez MD Unavailable [phone] John Paul Moyer MD Unavailable Annel Rod MD Unavailable Anali MARSHALL MD, Carlos M. 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 Gender Identity Not on file Sexual Orientation Not on file documented as of this encounter Plan of Treatment Not on file documented as of this encounter Procedures Procedure Name Priority Date/Time Associated Diagnosis Comments SCAN - RADIOLOGY/IMAGING 05/15/2017 documented in this encounter Results * SCAN - RADIOLOGY/IMAGING (05/15/2017) Anatomical Region Laterality Modality Other us Provider [...] COVID: Recovered 02/10/2022 02/10/2022 06/10/2022 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 Exposure, COVID-19 Comment:Added automatically based on COVID19 lab answers indicating exposure risk 02/11/2022 02/11/2022 02/15/2022 9:06 AM C DT COVID: Suspected 05/14/2022 05/14/2022 05/14/2022 10:41 AM 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 OPERATOR COVID: Suspected 06/07/2022 06/07/2022 06/07/2022 12:28 PM HUMIDIFIER OPERATOR COVID: Suspected 06/21/2022 06/21/2022 06/21/2022 2:12 AM HUMIDIFIER OPERATOR COVID: Suspected 10/05/2022 10/05/2022 10/05/2022 7:40 PM CDT COVID: Suspected 01/04/2024 01/04/2024 01/04/2024 10:30 PM CDT COVID: Suspected 02/14/2024 02/14/2024 02/15/2024 12:36 AM CDT documented as of this encounter Care Teams Managing Partner Relationship Specialty Start Date End Date Lavonne Hathaway MD [address] [place] [address] [place] [address] PCP - General 08/16/16 08/17/17 Justen Gale MD [address] [facility] [address] [address] PCP - General 08/18/17 08/22/17 Lavonne Hathaway MD [address] [place] [address] [place] [address] PCP - General Family Medicine 08/23/17 10/08/17 Justen Gale MD [address] [facility] [address] [address] PCP - General 10/09/17 Liu Jerez MD [address] [place] [address] [place] [address] Consulting Physician Gastroenterology 07/28/17 [place] [address] [facility] [address] [place] [address] Consulting Physician Pulmonary Disease 08/03/17 Khris Arthur MD [address] [facility] [address] [place] [address] Medical Oncologist/Preparer Samples And Repairs Medical Oncology 10/23/17 [place] [address] [address] [facility] [address] [place] [address] Surgeon Orthopedic Surgery 10/23/17 [place] [address] [address] Consulting Physician Pain Management 10/23/17 [place] [address] [facility] [address] [place] [address] Referring Physician General Surgery 01/26/18 [place] [address] [facility] [address] [place] [address] Consulting Physician Neurology 01/26/18 documented as of this encounter
--- OUTSIDE RECORDS SUMMARY | 2024-04-26 04:29 | XMS_ITS | Encounter Summary ---
Author Organization [facility] Healthcare Address [address] [place] [address] Care Team Providers Care Ledger Poster Name Role Phone Lavonne Hathaway MD Primary Care Provider +1- [phone] Encounter Details Date Type Department Care Team (Late st Contact Info) Description 01/30/2017 10:20 AM CDT - 01/30/2017 4:37 PM CDT Emergency [facility] Emergency Department [address] [place] [address] Karlos Cervantes MD [address] [place], [place] [id number] [place] [address] Discharge Disposition: Left Against Medical Advice Social History Tobacco Use Types Packs/Day Years Used Date Smoking Tobacco: Former Alcohol Use Standard Drinks/Week Comments No 0 (1 standard drink = 0.6 oz pur e alcohol) Comments Unknown Sex and Gender Information Value Date Recorded Sex Assigned at Not on file 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 Gender Identity Not on file Sexual [...] Disposition Disposition Code Departure Means Destination Left Against Medical Advice documented in this encounter Plan of Treatment Not on file documented as of this encounter Procedures Procedure Name Priority Date/Time Associated Diagnosis Comments XR CHEST 1 VIEW Routine 01/30/2017 4:26 PM CDT EGFR STAT 01/30/2017 11:53 AM CDT DIFFERENTIAL AUTO STAT 01/30/2017 11: 53 AM CDT CBC WITH AUTO DIFFERENTIAL STAT 01/30 11:53 AM CDT TROPONIN I STAT 01/30/2017 11:53 AM CDT PROTIME-INR STAT 01/30/2017 11:53 AM CDT D-DIMER, QUANTITATIVE STAT 01/30/2017 11:53 AM CDT TSH STAT 01/30/2017 11:53 AM CDT T4, TOTAL STAT 01/30/2017 11:53 AM CDT B-TYPE NATRIURETIC PEPTIDE STAT 01/30 11:53 AM CDT COMPREHENSIVE METABOLIC PANEL STAT 01/30/2017 11:53 AM CDT ELECTROCARDIOGRAPHY (ECG) 01/30/2017 DISCHARGE LABORATORY CUMULATIVE REPORT 01/30/2017 12:00 AM CDT documented in this encounter Results * XR Chest 1 Vw (01/30/2017 4:26 PM CDT) Anatomical Region Laterality Modality Body, Chest N/A Radiographic Lizeth ging 01/30/2017 4:26 PM CDT Narrative 01/30/2017 4:26 PM CDT DATE OF EXAM: ??Oct ??2016 11:26AM Acc#: ??[id number] ??EDX 0031 - XR Chest Portable ?? DIAGNOSIS: ??HEART PALPATIONS, SWEATING CLINICAL HISTORY: ?? Cough RESULT: HISTORY: The patient is 61-year-old female who presents with shortness of breath and cough. TECHNIQUE: Portable AP view of the chest is compared with the previous study dated 09/10/2016. FINDINGS: Cardiomegaly with aortic atherosclerosis. ??Mild degree of pulmonary vascular congestion. ??No focal infiltrate. IMPRESSION: Cardiomegaly with moderate vascular congestion. Electronically signed by: Shira Gaspar M.D. ? TECHNICAL PUBLICATIONS WRITER: ??PSC TRANSCRIBE DATE/TIME: ??Jan ??2016 12:18P RADIOLOGIST: ??SHIRA GASPAR M.D. ??READ ON: ??Jan ??2016 12:20P ORDERING DR: KARLOS CERVANTES M.D. THIS DOCUMENT HAS BEEN ELECTRONICALLY SIGNED BY: ??SHIRA GASPAR M.D. ??ON: ??Jan ??2016 12:18P Attending: ??ALLISON, ??LAVONNE Requesting: ??BILLY, ??KARLOS Requesting Fax: ??[phone] Attending Fax: ??[phone] Attending ID: ??[id number] Requesting ID: ??[id number] Report To 1 ID: ?? Report To 1 Name: ??, ?? Report To 1 FAX: ??-- Report To 2 ID: ?? Report To 2 Name: ??, ?? Report To 2 FAX: ??-- NextGen Order #: ?? Procedure Note Miscellaneous, Not In File / Provider, MD Tyler - 01/30/2017 DATE OF EXAM: Jan 30 2017 11:26AM Acc#: [id number] EDX 0031 - XR Chest Portable DIAGNOSIS: HEART PALPATIONS, SWEATING CLINICAL HISTORY: Cough RESULT: HISTORY: The patient is 61-year-old female who presents with shortness of breath and cough. TECHNIQUE: Portable AP view of the chest is compared with the previous study dated 09/10/2016. FINDINGS: Cardiomegaly with aortic atherosclerosis. Mild degree of pulmonary vascular congestion. No focal infiltrate. IMPRESSION: Cardiomegaly with moderate vascular congestion. Electronically signed by: Shira Gaspar M.D. TECHNICAL PUBLICATIONS WRITER: arviem AG TRANSCRIBE DATE/TIME: Jan 30 2017 12:18P RADIOLOGIST: SHIRA GASPAR M.D. READ ON: Jan 30 2017 12:20P ORDERING DR: KARLOS CERVANTES M.D. THIS DOCUMENT HAS BEEN ELECTRONICALLY SIGNED BY: SHIRA GASPAR M.D. ON: Jan 30 2017 12:18P Attending: LAVONNE COOPER Requesting: KARLOS CERVANTES Requesting Attending Attending ID: [id number] Requesting ID: [id number] Report To 1 ID: Report To 1 Name: , Report To 1 FAX: -- Report To 2 ID: Report To 2 Name: , Report To 2 FAX: -- NextGen Order #: Karlos Cervantes MD IMG XR PROCEDURES Final Result * D-dimer, quantitative (01/30/2017 11:53 AM CDT) D-dimer <150 150 - 230 ng/mL D-DU [facility] Comment: Interpretive Data This D-dimer test is approved by the FDA to exclude suspected PE and DVT in outpatients when the result is <230 ng/ml D-DU in conjunction with a pre-test probability score of low or moderate using the Wells Criteria. Current Interpretive Data was last revised on 2015. Blood specimen (specimen) 01/30/2017 11:53 AM CDT 01/30/2017 2:47 PM CDT Karlos Cervantes MD LAB BLOOD ORDERABLES Fi nal Result Performing Organization Address City/[facility] Co de Phone Number [facility] [address] [facility] [place] [address] * TSH (01/30/2017 11:53 AM CDT) Thyroid Stimulating Hormone 2.34 0.45 - 5.33 mcIUnit/mL [facility] Blood specimen (specimen) 01/30/2017 11:53 AM CDT 01/30/2017 12:04 PM CDT Karlos Cervantes MD LAB BLOOD ORDERABLES Fi nal Result Performing Organization Address [facility] Co de Phone Number [facility] [address] [facility] [place] [address] * T4, total (01/30/2017 11:53 AM CDT) T4 8.6 6.1 - 12.2 mcg/dL [facility] Blood specimen (specimen) 01/30/2017 11:53 AM CDT 01/30/2017 12:04 PM CDT Karlos Cervantes MD LAB BLOOD ORDERABLES Fi nal Result Performing Organization Address [facility] Co de Phone Number [facility] [address] [facility] [place] [address] * B-type natriuretic peptide (01/30/2017 11:53 AM CDT) B-Type Natriuretic Peptide (BNP) 30 0 - 100 pg/mL [facility] Blood specimen (specimen) 01/30/2017 11:53 AM CDT 01/30/2017 12:04 PM CDT Karlso Cervantes MD LAB BLOOD ORDERABLES Fi nal Result Performing Organization Address [facility] de Phone Number [facility] [address] [place] [address] * Troponin I (01/30/2017 11:53 AM CDT) Troponin I 0.05 0.00 - 0.14 ng/mL [facility] Comment: Interpretive Data Normal: ? 0.00 - 0.14 ng/mL Indeterminate: ?0.15 - 0.50 ng/mL TX / Cardiac Muscle Damage: ? >0.50 ng/mL Current interpretive data was last reviewed 2015 Blood specimen (specimen) 01/30/2017 11:53 AM CDT 01/30/2017 12:04 PM CDT Karlos Cervantes MD LAB BLOOD ORDERABLES Fi nal Result Performing Organization Address [facility] de Phone Number [facility] [address] [place] [address] * eGFR (01/30/2017 11:53 AM CDT) Pathologist [facility] eGFR 90 mL/min/1.7 3 m2 [facility] Comment: Interpretive Data Reference Interval Normal ?>/= 90 mL/min/1.73m2 Mildly decreased* ? 60 - 89 mL/min/1.73m2 Mildly to moderately decreased ?45 - 59 mL/min/1.73m2 Moderately to severely decreased ??30 - 44 mL/min/1.73m2 Severely decreased ?15 - 29 mL/min/1.73m2 Kidney Failure ?< 15 ??mL/min/1.73m2 *Relative to young adult level If -Burmese multiply value by 1.16. Estimated glomerular filtration [...] was last reviewed 2015. Blood specimen (specimen) 01/30/2017 11:53 AM CDT 01/30/2017 12:07 PM CDT Karlos Cervantes MD LAB BLOOD ORDERABLES nal Result [facility] [address] [place] [address] * Comprehensive metabolic panel (01/30/2017 11:53 AM CDT) Sodium 136 135 - 145 mmol/L [facility] Potassium, pl 4.5 3.5 - 5.1 mmol/L [facility] CO2 24 22 - 32 mmol/L [facility] BUN 12 8 - 24 mg/dL [facility] Glucose 166 70 - 199 mg/dL [facility] Creatinine 0.73 0.60 - 1.30 mg/dL [facility] Calcium 10.0 8.4 - 10.5 mg/dL [facility] Chloride 103 100 - 114 mmol/L [facility] Albumin 3.4 3.2 - 4.8 g/dL [facility] AST 24 7 - 40 Units/L [facility] ALT 23 1 - 45 Units/L [facility] Alk phos 63 30 - 110 Units/L [facility] Bilirubin, total 0.20 0.10 - 1.30 mg/dL [facility] Protein, pl 7.5 6.0 - 8.3 g/dL [facility] Anion gap 14 8 - 16 mmol/L [facility] Blood specimen (specimen) 01/30/2017 11:53 AM CDT 01/30/2017 12:04 PM CDT Karlos Cervantes MD LAB BLOOD ORDERABLES Fi nal Result Performing Organization Address [facility] Co de Phone Number MARY JANE [address] [place] [address] * (ABNORMAL) Protime-INR (01/30/2017 11:53 AM CDT) PT 17.2(H) 9.5 - 13.0 sec [facility] INR 1.51(H) 0.90 - 1.20 [facility] Blood specimen (specimen) 01/30/2017 11:53 AM CDT 01/30/2017 12:04 PM CDT Karlos Cervantes MD LAB BLOOD ORDERABLES Fi nal Result Performing Organization Address [facility] Co de Phone Number [facility] [address] [address] [facility] [place] [address] * (ABNORMAL) Differential, auto (01/30/2017 11:53 AM CDT) Neutrophil pct 69.5 % [facility] Imm gran pct 0.4 % [facility] Lymphocyte pct 19.9 % [facility] Monocyte pct 7.0 % [facility] Eosinophil pct 0.3 % [facility] Basophil pct 0.4 % [facility] Neutrophil abs 7.18(H) 1.70 - 6.50 K/cumm [facility] Imm gran abs 0.04 0.00 - 0.10 K/cumm [facility] Lymphocyte abs 2.05 0.80 - 3.30 K/cumm [facility] Monocyte abs 0.72 0.20 - 0.80 K/cumm [facility] Eosinophil abs 0.29 0.00 - 0.50 K/cumm [facility] Basophil abs 0.04 0.00 - 0.10 K/cumm [facility] Blood specimen (specimen) 01/30/2017 11:53 AM CDT 01/30/2017 12:04 PM CDT Karlos Cervantes MD LAB BLOOD ORDERABLES Fi nal Result Performing Organization Address [facility] Co de Phone Number [facility] JANE [facility] [address] Department [place] [address] * (ABNORMAL) CBC with auto differential (01/30/2017 11:53 AM CDT) Pathologist [facility] WBC 10.32(H) 3.80 - 9.90 K/cumm [facility] RBC 4.39 3.90 - 5.20 M/cumm [facility] Hgb 12.6 11.9 - 15.5 g/dL [facility] Hct 39.8 35.6 - 45.5 % [facility] MCV 90.7 81.3 - 96.4 fL [facility] MCH 28.7 27.1 - 33.3 pg [facility] MCHC 31.7(L) 32.3 - 35.7 g/dL [facility] RDW CV 14.2 11.1 - 14.9 % [facility] RDW SD 47.9 35.7 - 48.1 fL [facility] Plt 298 150 - 400 K/cumm [facility] MPV 9.8 9.1 - 12.3 fL [facility] NRBC 0.0 0.0 - 0.2 % [facility] NR[facility] abs 0.00 0.00 - 0.01 K/cumm [facility] Blood specimen (specimen) 01/30/2017 11:53 AM CDT 01/30/2017 12:04 PM CDT Karlos Cervantes MD LAB BLOOD ORDERABLES Fi nal Result [facility] [place] [address] [place] [address] * DISCHARGE LABORATORY CUMULATIVE REPORT (01/30/2017 12:00 AM CDT) Narrative 01/30/2017 12:00 AM CDT Ordered by an unspecified provider. us Historical Provider LAB BLOOD ORDERABLES Deann l Result * ELECTROCARDIOGRAPHY (ECG) (01/30/2017) us Provider Scanning ECG ORDERABLES Final Result documented in this encounter Visit Diagnoses Not on filedocumented in this encounter Care Teams Ledger Poster Relationship Specialty Start Date End Date Lavonne Hathaway MD [address] [place] [address] [place] [address] PCP - General 08/16/16 08/17/17 documented as of this encounter
--- OUTSIDE RECORDS SUMMARY | 2024-04-26 04:29 | XMS_ITS | Encounter Summary ---
Author Organization [facility] Healthcare Address [address] [place] [address] Care Team Providers Care Box Toe Stitcher Name Role Phone Lavonne Hathaway MD Primary Care Provider +1- [phone] Encounter Details Date Type Department Care Team (Latest Contact Info) Description 05/31/2017 1:11 PM [facility] - 05/31/2017 11:59 PM [facility] Hospital Encounter 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 90 capsule 1 02/24/2017 07/27/2017 gabapentin (NEURONTIN) 300 mg capsule TAKE 2 [...] mg by mouth. 05/11/2012 09/12/2021 methIMAzole (TAPAZOLE) 5 mg tablet take 1 tablet by oral route every day 0 0 08/19/2013 07/27/2017 metoprolol (LOPRESSOR) 25 mg tablet take 0.5 tablet by oral route twice a day 0 0 08/19/2013 07/27/2017 oxybutynin (DITROPAN) 5 mg tablet take 1 tablet by oral route every day 0 0 12/12/2013 01/26/2023 oxybutynin (DITROPAN) 5 mg tablet Take 5 mg by mouth. 12/12/2013 12/12/2017 rOPINIRole (REQUIP) 5 mg tablet take 1 tablet (5MG) by oral route every day at bedtime 0 05/11/2012 12/12/2017 traMADol (ULTRAM) 50 mg tablet take 1 Tablet by oral route 2 times every day if needed 0 0 03/12/2013 07/27/2017 documented as of this encounter Discharge Disposition Disposition Code Departure Means Destination Discharge to home or self care documented in this encounter Plan of Treatment Not on file documented as of this encounter Visit Diagnoses Not on filedocumented in this encounter Care Teams Box Toe Stitcher Relationship Specialty Start Date End Date Lavonne Hathaway MD [facility] [place] [address] PCP - General 08/16/16 08/17/17 documented as of this encounter
--- OUTSIDE RECORDS SUMMARY | 2024-04-26 04:29 | XMS_ITS | Encounter Summary ---
Author Organization [facility] Healthcare Address [address] [place] [address] Care Team Providers Care Gas Processing Plant Operator Name Role Phone Lavonne Hathaway MD Primary Care Provider +1- [phone] Encounter Details Date Type Department Care Team (Latest Contact Info) Description 07/26/2017 8:40 PM CDT - 07/26/2017 11:59 PM CDT Hospital Encounter [facility] [address] [place] [address] Gregoria Knowles MD [address] [place] [address] [id number] [place] [address] Discharge Disposition: Discharge to home or self care Social History Tobacco Use Types Packs/Day Years Used Date Smoking Tobacco: Former Smokeless Tobacco: Never Alcohol Use Standard Drinks/Week Comments No 0 (1 standard drink = 0.6 oz pur e alcohol) Comments Unknown Sex and Gender Information Value Date Recorded Sex Assigned at Not on file 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 10 tablet 07/28/2017 8 exemestane (AROMASIN) 25 mg tablet Take 25 mg by mouth daily. After a meal 8 exemestane (AROMASIN) 25 mg tablet TAKE 1 TABLET BY MOUTH DAILY AFTER A MEAL 08/09/2016 8 gabapentin (NEURONTIN) 300 mg capsule Take 1 capsule (300 mg total) by mouth 3 (three) times a day. 90 capsule 1 02/24/2017 8 gabapentin (NEURONTIN) 300 mg capsule TAKE 2 CAPSULE 3 TIMES DAILY 05/31/2017 8 HYDROcodone-acetam inophen (NORCO) 5-325 mg per tabletIndications: Pain Take 1-2 tablets every 4 hours as needed for pain 60 tablet 02/24/2017 8 lisinopril (PRINIVIL,ZESTRIL) 20 mg tablet take 1 Tablet (20MG) by oral route every day 0 05/11/2012 8 lisinopril (PRINIVIL,ZESTRIL) 20 mg tablet Take 20 mg by mouth. 05/11/2012 2 methIMAzole (TAPAZOLE) 5 mg tablet take 1 tablet by oral route every day 0 0 08/19/2013 8 metoclopramide (REGLAN) 10 mg tabletIndications: Diabetic Gastroparesis Take 1 tablet (10 mg total) by mouth 4 (four) times a day. Before meals as needed for nausea 120 tablet 07/28/2017 8 metoprolol (LOPRESSOR) 25 mg tablet take 0.5 tablet by oral route twice a day 0 0 08/19/2013 8 omeprazole (PriLOSEC) 40 mg capsule Take 1 capsule (40 mg total) by mouth daily. 30 capsule 11 07/28/2017 8 omeprazole (PriLOSEC) 40 mg capsule Take 1 capsule (40 mg total) by mouth daily. 30 capsule 11 07/28/2017 8 oxybutynin (DITROPAN) 5 mg tablet take 1 tablet by oral route every day 0 0 12/12/2013 3 oxybutynin (DITROPAN) 5 mg tablet Take 5 mg by mouth. 12/12/2013 8 rivaroxaban (XARELTO) 10 mg tablet Take 20 mg by mouth daily after dinner. 8 rOPINIRole (REQUIP) 5 mg tablet take 1 tablet (5MG) by oral route every day at bedtime 0 05/11/2012 8 traMADol (ULTRAM) 50 mg tablet take 1 Tablet by oral route 2 times every day if needed 0 0 03/12/2013 8 UNABLE TO FIND Take by mouth. exametazine 8 documented as of this encounter Discharge Disposition Disposition Code Departure Means Destination Discharge to home or self care documented in this encounter Plan of Treatment Not on file documented as of this encounter Procedures Procedure Name Priority Date/Time Associated Diagnosis Comments XR CHEST 1 VIEW ED 07/26/2017 9:05 PM CDT documented in this encounter Results * XR Chest 1 View (07/26/2017 9:05 PM CDT) Anatomical Region Laterality Modality Body, Chest N/A Computed Radiogr aphy Impressions 07/26/2017 9:29 PM CDT Comparison is made to previous examination dated 01/30/2017. ??Lungs are well-expanded and clear. ??There is no pleural effusion. ??No pneumothorax. ??The heart size is upper limits of normal for portable technique. ??Unchanged prominence of the central pulmonary vasculature. ??No mediastinal widening Electronically signed by: Brando Restrepo M.D. Narrative 07/26/2017 9:29 PM CDT RESULT: EXAMINATION: XR CHEST 1 VIEW HISTORY: Dyspnea. Procedure Note Robert Roberts MD - 07/26/2017 RESULT: EXAMINATION: XR CHEST 1 VIEW HISTORY: Dyspnea. IMPRESSION: Comparison is made to previous examination dated 01/30/2017. Lungs are well-expanded and clear. There is no pleural effusion. No pneumothorax. The heart size is upper limits of normal for portable technique. Unchanged prominence of the central pulmonary vasculature. No mediastinal widening Electronically signed by: Brando Restrepo M.D. Gregoria Knowles MD IMG XR PROCEDURES Final Result documented in this encounter Visit Diagnoses Not on filedocumented in this encounter Care Teams Gas Processing Plant Operator Relationship Specialty Start Date End Date Lavonne Hathaway MD [address] [place] [address] [place] [address] PCP - General 08/16/16 08/17/17 documented as of this encounter
--- OUTSIDE RECORDS SUMMARY | 2024-04-26 04:29 | XMS_ITS | Encounter Summary ---
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 Name Role Phone Lavonne Hathaway MD Primary Care Provider [phone] Liu Jerez MD Unavailable [phone] Reason for Visit * Reason Comments Shortness of Breath worsens with exertio n, also fatigue Encounter Details Date Type Department Care Team (Latest Contact Info) Description 07/26/2017 7:07 PM CDT - 07/28/2017 4:21 PM CDT Hospital Encounter [facility] [address] [id number] [place] [id number] [place], [place] [id number] [place] [id number] [place] [address] [place] [id number] [place] [address] [place] [id number] [facility] [address] [place] [address] Shortness of breath (Primary Dx); Essential hypertension; Nausea and vomiting, intractability of vomiting not [...] on file Legal 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 Gender Identity Not on file Sexual Orientation Not on file documented as of this encounter Last Filed Vital Signs Vital Sign Reading Time Taken Comments Blood Pressure 94/62 07/28/2017 12:50 PM CDT Pulse 84 07/28/2017 12:50 PM CDT Temperature 36.1 ??C (97 ??F) 07/28/2017 11:16 AM CDT Respiratory Rate 18 07/28/2017 12:50 PM CDT Oxygen Saturation 94% 07/28/2017 12:50 PM CDT Inhaled Oxygen Concentration - - Weight 123.8 kg (273 lb) 07/28/2017 11:16 AM CDT Height 154.9 cm (5' 1 ) 07/28/2017 11:16 AM CDT Body Mass Index 51.58 07/28/2017 11:16 AM CDT documented in this encounter Discharge Summaries * Radha Liriano MD - 07/28/2017 2:36 PM CDT Inpatient Discharge Summary BRIEF OVERVIEW Admitting Provider: Remi Garza MD Discharge Provider: Radha Liriano MD Primary Care Physician at Discharge: Lavonne Hathaway MD [phone] Admission Date: 07/26/2017 Discharge Date: 07/28/2017 Primary Discharge Diagnosis: Principal Problem: Generalized weakness Active Problems: Dyspnea Unintentional weight loss Acute cystitis without hematuria Nausea and vomiting Secondary Discharge Diagnosis: Generalized weakness Dyspnea Unintentional weight loss Acute cystitis without hematuria Nausea and vomiting * No resolved hospital problems. * DETAILS OF HOSPITAL STAY Presenting Problem Generalized weakness Hospital Course: This moderately obese 62-year-old white female came in secondary to difficulty breathing as well asabdominal pain nausea and vomiting. The patient was started respiratory treatments, GI was consulted. The patient has a history of unexplained weight loss over the past several months due to vomiting. The patient was taken for an EGD by GI which was negative. Because of the patient's history of diabetes I feel she may have delayed gastric emptying syndrome or possibly get her diabetic gastroparesis. The patient unfortunately is allergic to Reglan. Will try omeprazole under requested by GI. Willhave the patient follow up with Dr. Epifanio Rivera for biopsy results as well as gastric emptying study. Discussed the above with The patient and she is agreeable to go home. Test Results Pending at Discharge: Order Current Status Surgical pathology Collected (07/28/17 1218) Blood culture Blood Preliminary result Operative Procedures Performed: Procedure(s): ESOPHAGOGASTRODUODENOSCOPY BIOPSY Other Procedures: None Pertinent Test Results: Ct [...] nephrolithiasis. A preliminary report was submitted by [facility] on 07/27/2017 at 2:09 AM. Electronically signed by: Pirnce House M.D. No results found for this or any previous visit (from the past 24 hour(s)). Discharge Details Physical Exam at Discharge: Discharge Condition: good Pulse: 84 Resp: 18 BP: 94/62 Temp: 36.1 ??C (97 ??F) Weight: 123.8 kg (273 lb) BP 94/62 Pulse 84 Temp 36.1 ??C (97 ??F) (Temporal) Resp 18 Ht 154.9 cm (5' 1 ) Wt 123.8 kg (273 lb) SpO2 94% BMI 51.58 kg/m?? Pertinent Exam Findings at Discharge: Patient seems to be doing well today Labs at discharge: No results found for this or any previous visit (from the past 24 hour(s)). Discharge Disposition: Discharge to home or self care Full Code Discharge Instructions: Activity Instructions Discharge activity: Resume normal activity Diet Instructions Adult Discharge Diet Diet Type: Return to previous diet Other Instructions Call provider for: difficulty breathing or chest pain Call provider for: persistent nausea or vomiting Call provider for: severe uncontrolled pain Discharge Medications: Your medication list START taking these medications ciprofloxacin 500 mg tablet Commonly known as: CIPRO Take 1 tablet (500 mg total) by mouth 2 (two) times a day for 5 days. omeprazole 40 mg capsule Commonly known as: PriLOSEC Take 1 capsule (40 mg total) by mouth daily. CONTINUE taking these medications exemestane 25 mg tablet Commonly known as: AROMASIN HYDROcodone-acetaminophen 5-325 mg per tablet Commonly known as: NORCO Take 1-2 tablets every 4 hours as needed for pain lisinopril 20 mg tablet Commonly known as: PRINIVIL,ZESTRIL take 1 Tablet (20MG) by oral route every day oxybutynin 5 mg tablet Commonly known as: DITROPAN take 1 tablet by oral route every day REQUIP 5 mg tablet Generic drug: rOPINIRole take 1 tablet (5MG) by oral route every day at bedtime rivaroxaban 10 mg tablet Commonly known as: XARELTO Outpatient Follow-Up: [place] [address] [facility] [address] patietn may benefit from gastric emptying study. Also, needs biopsy results from EGD Time Spent on Discharge: 35 min documented in this encounter Medications at Time [...] every day at bedtime 0 05/11/2012 12/12/2017 documented as of this encounter Ordered Prescriptions Prescription Sig Dispense Quantity Refills Last Filled Start Date End Date omeprazole (PriLOSEC) 40 mg capsule Take 1 capsule (40 mg total) by mouth daily. 30 capsule 11 07/28/2017 8 ciprofloxacin (CIPRO) 500 mg tabletIndications:U rinary Tract/Genitourinary Infection Take 1 tablet (500 mg total) by mouth 2 (two) times a day for 5 days. 10 tablet 07/28/2017 8 omeprazole (PriLOSEC) 40 mg capsule Take 1 capsule (40 mg total) by mouth daily. 30 capsule 11 07/28/2017 8 metoclopramide (REGLAN) 10 mg tabletIndications:D iabetic Gastroparesis Take 1 tablet (10 mg total) by mouth 4 (four) times a day. Before meals as needed for nausea 120 tablet 07/28/2017 8 documented in this encounter Discharge Disposition Disposition Code Departure Means Destination Discharge to home or self care documented in this encounter Progress Notes * Remi Garza MD - 07/28/2017 4:21 PM CDT + blood culture sent to me. Likely a contaminant. Patient notified but she is still feeling SOB, tired, emesis and wants to come to ER to be checked out. ER notified of complaints and culture result. Addendum: this was actually a call to the patient on 07/31 (not 07/28 as note is dated). See 07/31/17 call note. * Sonali Liu, PT - 07/28/2017 9:47 AM CDT Physical Therapy INITIAL EVALUATION PATIENT'S NAME:Mohsen Marques :1955 AGE:62 y.o. TIME IN:9:47 TIME OUT:10:15 CURRENT DIAGNOSIS AND HOSPITAL COURSE:nausea, vomiting, unintentional weight loss, deconditioning Patient Active Problem List Diagnosis ??? Restless [...] TISSUE ABSCESS DRAIN N/A 10/24/2014 SUBJECTIVE LIVES WITH:daughter LIVING ENVIRONMENT: one story home with 1+1 steps to enter home. PRIOR LEVEL OF FUNCTION: Daughter assists with some self care and helps with meals prep, laundary, chores and errands. Patient is indep with ambulating using wheeled walker 'occasionally' when her legs are 'bothering her . Patient does not drive. Patient enjoys painting, crafts, reads and Spends time with grandkids. EQUIPMENT OWNED: wheeled walker , shower chair EQUIPMENT USED: wheeled walker occasionally SOCIAL SUPPORTS: patient's daughter is her choreworker PATIENT/FAMILY GOAL: to feel better MENTAL STATUS: Alert ORIENTATION: Oriented x 4 OBJECTIVE PRECAUTIONS: fall risk APPEARANCE/POSTURE: Patient lying in bed VITAL SIGNS: Resting heart rate: 79 bpm Post-activity heart rate: 90 bpm Resting O2 sat: 97% Post-activity O2 sat: 95% PAIN: Pre-therapy pain level: 4/10 Pain location: legs Pain intervention: repositioned Post-therapy pain level/response to intervention: 08/01 LE ASSESSMENTS: Right LE ROM: WFL Left LE ROM: WFL Right LE strength: grossly 4-/5 Left LE strength: grossly 4-/5 MOBILITY: Bed mobility: independent with supine to/from sit Transfers: sit to stand supervision/cg assist using walker Ambulation: Distance: 50' and 40' Assistive device: rolling walker Level of assist: contact guard Deviations: slow andra, decreased step length bilaterally Balance/Special Tests: Static sitting balance: good at edge of bed Dynamic sitting balance: not assessed Static standing balance: good using walker Dynamic standing balance: not assessed ASSESSMENT PROBLEM LIST: decreased strength, decreased mobility, decreased endurance , gait instabilty BARRIERS TO LEARNING: none BARRIERS TO DISCHARGE: none REHAB POTENTIAL/PROGNOSIS: good PLAN RECOMMENDATIONS: home with family, home health TREATMENT PLAN/INTERVENTIONS: LE strengthening, functional transfer training, ambulation, endurancetraining FREQUENCY: 3-5x/week EQUIPMENT RECOMMENDATIONS: none Refer to multi-disciplinary care plan section for PT specific goals. Refer to multi-disciplinary education section for patient education documentation. If this is the last note, please consider this the discharge summary. * Kerline Cedeno, RD - 07/27/2017 3:48 PM CDT Nutrition Assessment Reason for Assessment: Consult/Referral Encounter Date: 07/27/17 3:48 PM Nutrition Assessment and Plan: Patient is a 62 y.o. female. Admit Dx: SHORTNESS OF BREATH. Admitted on 07/26/2017, current LOS is 0 days. Pt not in room. Per chart review Wt Hx, Pt with (6.5% Wt loss in 5 months) & (7.4% Wt lossin 7 months)- non-significant Wt loss. Pt consuming adequate intakes per PO record. Will follow forPt interview and education needs. Nutrition Screen What diet do you follow at home?: diabetic diet Have You Recently Lost Weight Without Trying?: Yes (Comment) How Much Weight Have You Lost?: 15.9 kg (35 lb) What is the Timeframe of Weight Change?: Other (Comment) (4 months span) Poor Oral Intake for Four or More Days Prior to Admission: Yes (Comment) Current diet order: Adult Diet Restricted; Low Fat, Low Chol, Low Na, 2 GM Sodium Pt intake is adequate. PO intakes: 100% x2 Nutrition Diagnosis 1: Overweight/Obesity Related to: Food choices Evidenced by: BMI 40 or more ?? Interventions: Other (comment) (cont MNT plan; follow up) ?? Monitoring and Evaluation: PO intake, Weight changes, Labs, Plan of care, Discharge plans (education needs) ?? Goals: Oral intake to meet 75% estimated nutritional needs by next assessment, Patient/caregiverable to teach back understanding of role of diet in disease process prior to discharge, Adequate nutrition to meet estimated needs by next assessment Estimated needs: ?? Total Kcal/kg Estimated Needs : 1869 based on Kcal/k. Type of Weight Used for Estimated Kcals: Current ?? Total Protein Estimated Needs (gm): 119 Protein Needs Based on g/k.5 Type of Weight Used forEstimated Protein : [place]. ?? Total Fluid Estimated Needs: 1869 Fluid Needs Based on : 1 ml/kcal. Objective Anthropometrics Weight: 124.6 kg (274 lb 11.1 oz) Admission Weight : 124.6 kg Weight Change: 4.39 kg (9.69 lbs) IBW/kg (Calculated) : 47.6 kg Height: 154.9 cm (5' 0.98 ) Weight in (lb) to have BMI = 25: 132 BMI (Calculated): 51.9 3 Day I/O Summary No intake/output data recorded. Temp: 36.6 ??C (97.8 ??F) Past Medical History: Diagnosis Date ??? Adiposity obesity ??? Cancer (CMS/HCC) breast ??? CHF (congestive heart failure) (CMS/HCC) ??? Depression Depression ??? Diabetes (CMS/HCC) ??? Disorder of thyroid Thyroid disease ??? DVT (deep venous thrombosis) (CMS/HCC) ??? HX OTHER MEDICAL restless leg syndrome ??? HX OTHER MEDICAL RLS ??? Hypertension Hypertension ??? Osteoarthritis osteoarthritis ??? PE (pulmonary thromboembolism) (CMS/HCC) Medications and Lab Review: Scheduled Meds: aspirin 81 mg oral Once exemestane 25 mg oral Daily gabapentin 300 mg oral TID lisinopril 20 mg oral Daily methIMAzole 5 mg oral Daily metoprolol 25 mg oral Daily oxybutynin 5 mg oral BID rivaroxaban 10 mg oral Daily rOPINIRole 5 mg oral Nightly Continuous Infusions: Sodium Date Value Ref Range Status 07/26/2017 132 (L) 135 - 145 mmol/L Final Potassium Date Value Ref Range Status 07/26/2017 3.9 3.5 - 5.1 mmol/L Final BUN Date Value Ref Range Status 07/26/2017 20 8 - 24 mg/dL Final Creatinine Date Value Ref Range Status 07/26/2017 0.80 0.60 - 1.30 mg/dL Final Albumin Date Value Ref Range Status 07/26/2017 3.3 3.2 - 4.8 g/dL Final Calcium Date Value Ref Range Status 07/26/2017 9.3 8.4 - 10.5 mg/dL Final Lab Results Component Value Date HGBA1C 8.0 (H) 09/12/2016 Nursing Assessment: Last BM Date: 07/26/17 Tobin Scale Score: 20 Nutrition Follow-Up : 08/02/[address],LD documented in this encounter H&P Notes * Radha Liriano MD - 07/27/2017 11:13 AM CDT History and Physical DATE OF SERVICE: 07/27/2017 PRIMARY CARE PHYSICIAN: Lavonne Hathaway MD [phone] Subjective Patient is a 62 y.o. female Who is here for shortness of breath HPI: Patient is a 62 y.o. female with a past medical history of CHF, LUL, HTN and Diabetes Mellitus. Shepresented to ED yesterday with complaint of SOB and generalized weakness. Pt. States that she has been feeling fatigued and weak for the past two days, and yesterday she awoke from a nap and states that she could not stand without feeling as if she was going to pass out or fall. She also stated that she had chest pressure and palpitations. She also states her SOB has increased and she now gets SOB with talking and minimal activity also causes SOB. She also states that she has orthopnea. She stated nothing made her SOB better and nothing made it worse. She also states that she has had weight loss of 40 lbs since March that is being worked up outpatient. She states in this time she has had N/V that has restricted her eating due to fear of vomiting. She states she cannot eat consecutive meals because this will cause her to throw up so she only eats 1-2 small meals a day. She states she had colonoscopy done last week that was negative for any results, and her GI doctor stated her next step was for an EGD. Past Medical History: Diagnosis Date ??? Adiposity [...] Dose ??? exemestane (AROMASIN) 25 mg tablet Take 25 mg by mouth daily. After a meal ??? rivaroxaban (XARELTO) 10 mg tablet Take 10 mg by mouth daily. ??? HYDROcodone-acetaminophen (NORCO) 5-325 mg per tablet Take 1-2 tablets every 4 hours as needed for pain 60 tablet 0 ??? lisinopril (PRINIVIL,ZESTRIL) 20 mg tablet take 1 Tablet (20MG) by oral route every day 0 ??? oxybutynin (DITROPAN) 5 mg tablet take 1 tablet by oral route every day 0 0 ??? rOPINIRole (REQUIP) 5 mg tablet take 1 tablet (5MG) by oral route every day at bedtime 0 Allergies Allergen Reactions ??? Cephalosporins ??? Ceftriaxone Other (See comments) Reaction: Other allergic reaction, ??? Metoclopramide Other (See comments) Reaction: Feels funny, Social History Substance Use Topics ??? Smoking [...] Negative for activity change, appetite change, chills, fatigue, fever and unexpected weight change. HENT: Negative for congestion, ear pain, facial swelling, hearing loss, sore throat, trouble swallowing and voice change. Eyes: Negative for pain and visual disturbance. Respiratory: Positive for shortness of breath. Negative for cough, chest tightness and wheezing. Cardiovascular: Negative for chest pain, palpitations and leg swelling. Gastrointestinal: Negative for anal bleeding, blood in stool, constipation, diarrhea, nausea and vomiting. Endocrine: Negative for cold intolerance, heat intolerance and polydipsia. Genitourinary: Negative for difficulty urinating, dysuria and hematuria. Musculoskeletal: Negative for arthralgias, gait problem and joint swelling. Skin: Negative for color change, pallor and rash. Allergic/Immunologic: Negative for environmental allergies. Neurological: Negative for dizziness, tremors, seizures, syncope, speech difficulty, light-headedness, numbness and headaches. Psychiatric/Behavioral: Negative for agitation, confusion, hallucinations, sleep disturbance and suicidal ideas. Objective Vitals: 24hr Min/Max: Temp Min: 36.4 ??C (97.6 ??F) Max: 36.6 ??C (97.8 ??F) Pulse Min: 53 Max: 104 BP Min: 92/51 Max: 143/75 Resp Min: 11 Max: 31 SpO2 Min: 90 % Max: 100 % Most Recent: Vitals: 07/27/17 0723 BP: 113/80 Pulse: 86 Resp: 18 Temp: 36.6 ??C (97.8 ??F) SpO2: 97% No intake/output data recorded. I/O this shift: In: 240 [P.O.:240] Out: - Physical Exam: Physical Exam Constitutional: She is oriented to person, place, and time. She appears well-developed. HENT: Head: Normocephalic and atraumatic. Nose: [...] She displays normal reflexes. No cranial nerve deficit. Skin: Skin is warm and dry. No rash noted. Psychiatric: She has a normal mood and affect. Her behavior is normal. Lab/Radiology/Diagnostic Review: Recent Results (from the past 24 hour(s)) ECG 12 lead Collection Time: 07/26/17 7:12 PM Result Value Ref Range Patient age 62 years Interpretation Text SINUS RHYTHMNORMAL ECGPREVIOUS TRACIN01/30/2017 10.25No significant change compared to prior ECG Ventricular Rate EKG/Min 93 /min P Wave Duration 112 ms QRS-Interval (MSEC) 84 ms OH-Interval (MSEC) 131 ms QT Interval 337 ms QTc 394 ms QTC Interval ms P Holmes 47 deg QRS Holmes 23 deg T Holmes 61 deg B-type natriuretic peptide Collection Time: 07/26/17 9:00 PM Result Value Ref Range B-Type Natriuretic Peptide (BNP) 27 0 - 100 pg/mL CBC with auto differential Collection Time: 07/26/17 9:00 PM Result Value Ref Range WBC 16.51 (H) 3.80 - 9.90 K/cumm RBC 4.59 3.90 - 5.20 M/cumm Hgb 12.4 11.9 - 15.5 g/dL Hct 40.2 35.6 - 45.5 % MCV 87.6 81.3 - 96.4 fL MCH 27.0 (L) 27.1 - 33.3 pg MCHC 30.8 (L) 32.3 - 35.7 g/dL RDW CV 15.0 (H) 11.1 - 14.9 % RDW SD 48.1 35.7 - 48.1 fL Platelets 372 150 - 400 K/cumm MPV 9.6 9.1 - 12.3 fL NRBC Abs 0.00 0.00 - 0.01 K/cumm D-dimer, quantitative Collection Time: 07/26/17 9:00 PM Result Value Ref Range D-dimer <150 150 - 230 ng/mL D-DU Troponin I Collection Time: 07/26/17 9:00 PM Result Value Ref Range Troponin I <0.03 0.00 - 0.14 ng/mL Protime-INR Collection Time: 07/26/17 9:00 PM Result Value Ref Range PT 14.4 (H) 9.5 - 13.0 sec INR 1.27 (H) 0.90 - 1.20 Differential, auto Collection Time: 07/26/17 9:00 PM Result Value Ref Range Neutrophils 71.7 % Immature granulocytes 0.6 % Lymphocytes 19.3 % Monos 6.7 % Eosinophils 0.2 % Basophils 0.2 % Neutrophil absolute 11.82 (H) 1.70 - 6.50 K/cumm Immature granulocyte, abs 0.10 0.00 - 0.10 K/cumm Lymphocytes, abs 3.19 0.80 - 3.30 K/cumm Monos, abs 1.11 (H) 0.20 - 0.80 K/cumm Eosinophils, abs 0.25 0.00 - 0.50 K/cumm Basophils, abs 0.04 0.00 - 0.10 K/cumm Troponin I Collection Time: 07/26/17 11:53 PM Result Value Ref Range Troponin I 0.03 0.00 - 0.14 ng/mL Comprehensive metabolic panel Collection Time: 07/26/17 11:53 PM Result Value Ref Range Sodium 132 (L) 135 - 145 mmol/L Potassium 3.9 3.5 - 5.1 mmol/L CO2 25 22 - 32 mmol/L BUN 20 8 - 24 mg/dL Glucose 191 70 - 199 mg/dL Creatinine 0.80 0.60 - 1.30 mg/dL Calcium 9.3 8.4 - 10.5 mg/dL Chloride 101 100 - 114 mmol/L Albumin 3.3 3.2 - 4.8 g/dL AST 19 7 - 40 Units/L ALT 17 1 - 45 Units/L Alk phos 68 30 - 110 Units/L Bilirubin 0.50 0.10 - 1.30 mg/dL Protein, pl 7.9 6.0 - 8.3 g/dL Anion Gap 10 8 - 16 mmol/L eGFR Collection Time: 07/26/17 11:53 PM Result Value Ref Range GFR 80 mL/min/1.73 m2 Urinalysis reflex to microscopic Collection Time: 07/27/17 2:59 AM Result Value Ref Range Color, ur Yellow Clarity, ur Clear Specific gravity, ur 1.021 1.001 - 1.033 pH, ur 5.0 5.0 - 8.0 Protein, ur Negative Negative Glucose, ur Negative Negative Ketones, ur Negative Negative Bilirubin, ur Negative Negative Blood, ur 2+ (A) Negative Urobilinogen, ur <2.0 <2.0 Nitrites, ur Negative Negative Leukocyte esterase, ur 1+ (A) Negative Urinalysis, microscopic only Collection Time: 07/27/17 2:59 AM Result Value Ref Range RBC, ur 1 0 - 3 /HPF WBC, ur 7 (H) 0 - 5 /HPF Bacteria, ur 0 Epithelial cells, renal, ur 0 0 - 0 /HPF Mucus, ur Present Xr Chest 1 View Result Date: 07/26/2017 [...] nephrolithiasis. A preliminary report was submitted by [facility] on 07/27/2017 at 2:09 AM. Electronically signed by: Prince House M.D. Assessment /Plan All assessments present on admission unless otherwise specified Active Problems: Generalized weakness Dyspnea :} Generalized Weakness-Likely due to deconditioning, BNP was normal, CXR was unremarkable, will continue to monitor patient. Will ask PT/Ot to see to ensure she is safe at home :}unintentional weight loss- Will consult GI. She notes that she is vomiting about 50% of the time after eating. Will need EGD and possibly manometry. Will get CT abdomen. Other differential includesgastroparesis. ?? :} Dyspnea- Likely due to deconditioning vs. LUL vs. Obesity hypoventilation syndrome, CTA chest showed no evidence of PE, CXR was clear. Duo-Neb PRN. Will consult respiratory therapy for bronch management. :} UTI- will start bactrim ?? :} DM- SSI for diabetes ?? :} HTN-Continue liinopril ?? :} Neuropathy-Continue gabapentin ?? :} Breast Cancer-continue aromasin ?? :} LUL- cpap when sleeping at night ?? :} RLS- Continue Requip ?? :} Overactive bladder-Continune oxybutynin ?? :} DVT prophylaxis- Continue xarelto Estimated length of stay: 3 days Code 1 Radha Liriano MD 07/27/2017 11:13 AM documented in this encounter Procedure Notes * Liu Jerez MD - 07/28/2017 12:07 PM CDTAssociated Order(s): EGD [facility] Patient Name: Mohsen Marques Procedure Date: 07/28/2017 12:07 PM Date of : 1955 Admit Type: Inpatient Age: 62 Gender: Female Note Status: Finalized Attending MD: Liu Jerez MD Procedure Date: 07/28/2017 Procedure: Upper GI endoscopy Indications: Epigastric abdominal pain Providers: Liu Jerez MD, Tete Khan PARTS SALESPERSON (Anesthesia Staff), Felicitas Pryor RN Referring MD: Medicines: Monitored Anesthesia Care Complications: No immediate complications. Estimated Blood Loss: Estimated blood loss was minimal. Procedure: After obtaining informed consent, the endoscope was passed under direct vision. Throughout the procedure, the patient's blood pressure, pulse, and oxygen saturations were monitored continuously. The scope was passed under direct vision. The Endoscope [id number] was introduced through the mouth, and advanced to the second part of duodenum. The upper GI endoscopy was accomplished without difficulty. The patient tolerated the procedure well. Findings: The esophagus was normal. Diffuse mildly erythematous mucosa without bleeding was found in the gastric antrum. Biopsies were taken with a cold forceps for histology. Estimated blood loss was minimal. The duodenal bulb, first part of the duodenum and 2nd part of the duodenum were normal. Biopsies for histology were taken with a cold forceps for for evaluation of celiac disease. Estimated blood loss was minimal. Impression: - Normal esophagus. - Erythematous mucosa in the antrum. Biopsied. - Normal duodenal bulb, first part of the duodenum and 2nd part of the duodenum. Biopsied. Recommendation: - Await pathology results. - Follow an antireflux regimen. Procedure Code(s): --- Professional --- 47302, Esophagogastroduodenoscopy, flexible, transoral; with biopsy, single or multiple Diagnosis Code(s): --- Professional --- K31.9, Disease of stomach and duodenum, unspecified R10.13, Epigastric pain CPT copyright 2014 [employer]. All rights reserved. The codes documented in this report are preliminary and upon dough raiser review may be revised to meet current compliance requirements. Electronically signed by Liu Jerez M.D. Liu Jerez MD 07/28/2017 12:25:44 PM Number of Addenda: 0 Note Initiated On: 07/28/2017 12:07 PM documented in this encounter Consult Notes * Liu Jerez MD - 07/27/2017 5:32 PM CDTAssociated Order(s): IP CONSULT TO GASTROENTEROLOGY Gastroenterology Consult Subjective/Objective Patient ID: Mohsen Marques is a 62 y.o. White female. I am seeing this patient in consultation, requested by Radha Liriano MD Reason for consultation: Abdominal pain Nausea and vomiting Weight loss HPI: Abdominal Pain This is a new problem. The current episode started more than 1 month ago. The problem occurs constantly. The problem has been unchanged. Associated symptoms include abdominal pain, nausea and vomiting. Pertinent negatives include no arthralgias, chest pain, chills, coughing, fatigue, fever, joint swelling, rash or sore throat. Nothing aggravates the symptoms. She has tried nothing for the symptoms. The treatment provided no relief. Vomiting This is a new problem. The current episode started more than 1 month ago. The problem occurs constantly. The problem has been gradually worsening. Associated symptoms include abdominal pain, nausea and vomiting. Pertinent negatives include no arthralgias, chest pain, chills, coughing, fatigue, fever, joint swelling, rash or sore throat. Nothing aggravates the symptoms. She has tried nothing for the symptoms. The treatment provided no relief. Past Medical History: Diagnosis Date ??? Adiposity [...] TISSUE ABSCESS DRAIN N/A 10/24/2014 Social History Substance Use Topics ??? Smoking [...] Other Family history of restless leg syndrome; Allergies Allergen Reactions ??? Cephalosporins ??? Ceftriaxone Other (See comments) Reaction: Other allergic reaction, ??? Metoclopramide Other (See comments) Reaction: Feels funny, HOME MEDICATIONS : exemestane (AROMASIN) 25 mg tablet rivaroxaban (XARELTO) 10 mg tablet UNABLE TO FIND HYDROcodone-acetaminophen (NORCO) 5-325 mg per tablet lisinopril (PRINIVIL,ZESTRIL) 20 mg tablet oxybutynin (DITROPAN) 5 mg tablet rOPINIRole (REQUIP) 5 mg tablet aspirin (ASPIRIN LOW DOSE) 81 mg tablet gabapentin (NEURONTIN) 300 mg capsule methIMAzole (TAPAZOLE) 5 mg tablet metoprolol (LOPRESSOR) 25 mg tablet traMADol (ULTRAM) 50 mg tablet Current Facility-Administered Medications: ??? aspirin enteric coated tablet 81 mg, 81 mg, oral, Once, Sandeep Marie MD ??? diphenhydrAMINE (BENADRYL) tab/cap 25 mg, 25 mg, oral, QID PRN, Radha Liriano MD ??? exemestane (AROMASIN) tablet 25 mg, 25 mg, oral, Daily, Radha Liriano MD, 25 mg at 07/27/17 1133 ??? gabapentin (NEURONTIN) capsule 300 mg, 300 mg, oral, TID, Sandeep Marie MD ??? HYDROcodone-acetaminophen (NORCO) 5-325 mg per tablet 1 tablet, 1 tablet, oral, QID PRN, Sandeep Marie MD, 1 tablet at 07/27/17 1719 ??? ipratropium-albuterol (DUO-NEB) 0.5-2.5 mg/3 mL nebulizer solution 3 mL, 3 mL, nebulization, Q4H PRN (RT), Radha Liriano MD ??? lisinopril (PRINIVIL,ZESTRIL) tablet 20 mg, 20 mg, oral, Daily, Sandeep Marie MD, 20 mg at 07/27/17 0801 ??? methIMAzole (TAPAZOLE) tablet 5 mg, 5 mg, oral, Daily, Sandeep Marie MD ??? metoprolol (LOPRESSOR) tablet 25 mg, 25 mg, oral, Daily, Sandeep Marie MD ??? oxybutynin (DITROPAN) tablet 5 mg, 5 mg, oral, BID, Sandeep Marie MD, 5 mg at 801 ??? rivaroxaban (XARELTO) tablet 10 mg, 10 mg, oral, Daily, Radha Liriano MD, 10 mg at 07/27/17 1133 ??? rOPINIRole (REQUIP) tablet 5 mg, 5 mg, oral, Nightly, Sandeep Marie MD ??? traMADol (ULTRAM) tablet 50 mg, 50 mg, oral, QID PRN, Sandeep Marie MD Review of Systems Constitutional: Positive for unexpected weight change. Negative for appetite change, chills, fatigue and fever. HENT: Negative for drooling, mouth sores, postnasal drip, sore throat, trouble swallowing and voicechange. Eyes: Negative for redness. Respiratory: Negative for cough and wheezing. Cardiovascular: Negative for chest pain. Gastrointestinal: Positive for abdominal pain, nausea and vomiting. Negative for abdominal distention, anal bleeding, blood in stool, constipation, diarrhea and rectal pain. Endocrine: Negative for cold intolerance, heat intolerance, polydipsia and polyuria. Genitourinary: Negative for difficulty urinating and urgency. Musculoskeletal: Negative for arthralgias, back pain and joint swelling. Skin: Negative for color change, pallor and rash. Allergic/Immunologic: Negative for food allergies and immunocompromised state. Neurological: Negative for dizziness and seizures. Hematological: Negative for adenopathy. Does not bruise/bleed easily. Psychiatric/Behavioral: Negative for hallucinations, self-injury and suicidal ideas. Vitals: 07/27/17 1618 BP: 107/70 Pulse: 84 Resp: 18 Temp: 36.4 ??C (97.6 ??F) SpO2: 99% Physical Exam Constitutional: She is oriented to person, place, and time. She appears well-developed. Morbidly obese HENT: Head: Normocephalic. Mouth/Throat: Oropharynx is clear and moist. Eyes: Conjunctivae and EOM are normal. Pupils are equal, round, and reactive to light. Neck: Normal range of motion. Cardiovascular: Normal rate and normal heart sounds. Pulmonary/Chest: Effort normal and breath sounds normal. Abdominal: Soft. Bowel sounds are normal. Musculoskeletal: Normal range of motion. Neurological: She is oriented to person, place, and time. Skin: Skin is warm. Psychiatric: She has a normal mood and affect. Thought content normal. LABS Lab Results Component Value Date ALT 07/26/2017 AST 07/26/2017 ALKPHOS 68 07/26/2017 BILITOT 0.50 07/26/2017 No results found for: AMYLASE Recent Labs Lab Units 07/26/17 2100 WHITE BLOOD CELLS K/cumm 16.51* HEMOGLOBIN g/dL 12.4 HEMATOCRIT % 40.2 PLATELET COUNT K/cumm 372 Recent Labs Lab Units 07/26/17 2353 SODIUM mmol/L 132* POTASSIUM PLASMA mmol/L 3.9 CHLORIDE mmol/L 101 CO2 mmol/L 25 ANIONGAP mmol/L 10 GLUCOSE mg/dL 191 BUN SERUM mg/dL 20 CREATININE mg/dL 0.80 CALCIUM mg/dL 9.3 ALBUMIN g/dL 3.3 ALK PHOS Units/L 68 ALT Units/L 17 AST Units/L 19 BILIRUBIN TOTAL mg/dL 0.50 Leukocytosis. Imaging/Studies CT scan of the abdomen and pelvis done today revealed no acute findings. Colonoscopy report of July 03, 2017 that was performed at [facility] was reviewedand showed normal terminal ileum and scattered diverticulosis in the left colon. Assessment: Principal Problem: Generalized weakness Active Problems: Dyspnea Unintentional weight loss Acute cystitis without hematuria 1. Abdominal pain. This is associated with persistent nausea vomiting with unintentional weight loss. The patient has had CT scan of the abdomen as well as colonoscopy that were negative. She also has multiple severe comorbidities including history of breast cancer, morbid obesity, deep vein thrombosis, pulmonary embolism. Her symptoms may be due to gastric or duodenal ulcer. She could also have opportunistic infection of the esophagus or severe erosive esophagitis. Plan: 1. Esophagogastroduodenoscopy is recommended and scheduled for tomorrow. 2. The patient and her weight counseled about the potential risks benefits and alternativesto the procedure. She is unclear relative. I will hold the a.m. dose of Xarelto prior to the endoscopy. Liu Jerez MD CC: Lavonne Hathaway MD documented in this encounter ED Notes * Loren Bonner MD - 07/26/2017 8:15 PM CDT HPI Chief Complaint Patient presents with ??? Shortness of Breath worsens with exertion, also fatigue 8:23 PM Patient is a 62 y/o female with a history of PE, DVT, HTN, breast cancer, and thyroid disease presenting to the ED for an evaluation of SOB for the past 2 days but worsening this evening. Patient reports that her SOB was intermittent yesterday but has been constant since approximately 1600 this evening. She notes that the SOB is exacerbated with exertion and with lying flat but is somewhat alleviated with sitting at rest. Patient additionally complains of fatigue, generalized weakness, and light-headedness. She notes that she also had mild heart palpitations described as a racing heartbeat.Patient denies any chest pain, chest congestion, wheezing, or cough. She notes that she does not have any inhalers or nebulizer machines at home. Patient states she has chronic bilateral lower leg swelling which she states is unchanged. She also notes that she had 6 episodes of diarrhea today. Patient denies any leg pain, fevers, chills, sore throat, rhinorrhea, blurred vision, nausea, vomiting, abdominal pain, dysuria, body aches, or headaches. She also denies any history of asthma or emphysema. No other complaints are noted at this time. Patient History Patient Active Problem List Diagnosis Date Noted ??? Generalized weakness 07/27/2017 ??? Dyspnea 07/27/2017 ??? Unintentional weight loss 07/27/2017 ??? Acute cystitis without hematuria 07/27/2017 ??? Restless legs syndrome 03/12/2013 Class: Chronic [...] Negative for rhinorrhea and sore throat. Eyes: No blurred vision. Respiratory: Positive for shortness of breath. Negative for cough, chest tightness and wheezing. Cardiovascular: Positive for palpitations and leg swelling (chronic, unchanged. See HPI.). Negativefor chest pain. Gastrointestinal: Positive for diarrhea. Negative for abdominal pain, nausea and vomiting. Genitourinary: Negative for dysuria. Musculoskeletal: Negative for arthralgias and myalgias. Skin: Negative for rash. Neurological: Positive for weakness (generalized) and light-headedness. Negative for headaches. All other systems reviewed and are negative. Physical Exam ED Triage Vitals [07/26/17 1913] Temp Pulse Resp BP SpO2 36.6 ??C (97.8 ??F) 97 24 143/75 100 % Temp src Heart Rate Source Patient Position BP Location FiO2 (%) Oral Monitor;Pulse Oximetry Sitting Right arm -- Physical Exam Constitutional: She is oriented to person, place, and time. She appears well- developed. She appearsdistressed (MILD RESP. DISTRESS). OBESE .WEAK/ FATIGUED APPEARING. HENT: Head: Normocephalic and atraumatic. Right Ear: External ear normal. Left Ear: External ear normal. Mouth/Throat: Oropharynx is clear and moist and mucous membranes are normal. Eyes: Conjunctivae and EOM are normal. [...] and affect. Nursing note and vitals reviewed. ED Course & MDM Vitals: 07/27/17 1900 BP: 103/72 Pulse: 82 Resp: 18 Temp: 36.6 ??C (97.8 ??F) SpO2: 99% Labs Reviewed CBC WITH AUTO DIFFERENTIAL - Abnormal Result Value WBC 16.51 (*) RBC 4.59 Hgb 12.4 Hct 40.2 MCV 87.6 MCH 27.0 (*) MCHC 30.8 (*) RDW CV 15.0 (*) RDW SD 48.1 Platelets 372 MPV 9.6 NRBC Abs 0.00 Narrative: URINALYSIS AND REFLEX TO MICROSCOPIC - Abnormal Color, ur Yellow Clarity, ur Clear Specific gravity, ur 1.021 pH, ur 5.0 Protein, ur Negative Glucose, ur Negative Ketones, ur Negative Bilirubin, ur Negative Blood, ur 2+ (*) Urobilinogen, ur <2.0 Nitrites, ur Negative Leukocyte esterase, ur 1+ (*) Narrative: PROTIME-INR - Abnormal PT 14.4 (*) INR 1.27 (*) Narrative: DIFFERENTIAL AUTO - Abnormal Neutrophils 71.7 Immature granulocytes 0.6 Lymphocytes 19.3 Monos 6.7 Eosinophils 0.2 Basophils 0.2 Neutrophil absolute 11.82 (*) Immature granulocyte, abs 0.10 Lymphocytes, abs 3.19 Monos, abs 1.11 (*) Eosinophils, abs 0.25 Basophils, abs 0.04 Narrative: COMPREHENSIVE METABOLIC PANEL - Abnormal Sodium 132 (*) Potassium 3.9 CO2 25 BUN 20 Glucose 191 Creatinine 0.80 Calcium 9.3 Chloride 101 Albumin 3.3 AST 19 ALT 17 Alk phos 68 Bilirubin 0.50 Protein, pl 7.9 Anion Gap 10 Narrative: URINALYSIS, MICROSCOPIC ONLY - Abnormal RBC, ur 1 WBC, ur 7 (*) Bacteria, ur 0 Epithelial cells, renal, ur 0 Mucus, ur Present Narrative: BLOOD CULTURE B-TYPE NATRIURETIC PEPTIDE B-Type Natriuretic Peptide (BNP) 27 Narrative: D-DIMER, QUANTITATIVE D-dimer <150 Narrative: TROPONIN I Troponin I <0.03 Narrative: TROPONIN I Troponin I 0.03 Narrative: EGFR GFR 80 Narrative: CT abdomen pelvis without contrast Final Result Unremarkable nonenhanced CT of the abdomen and pelvis. Bilateral nonobstructing renal calculi. Normal appendix. Electronically signed by: Bruce Lake M.D. CT Chest PE W Contrast Final Result No evidence of acute pulmonary emboli. Heterogeneous thyroid. Recommend dedicated thyroid ultrasound. Right nephrolithiasis. A preliminary report was submitted by [facility] on 07/27/2017 at 2:09 AM. Electronically signed by: Prince Abbas, M.D. XR Chest 1 View ED Interpretation Chronic lung changes - unchanged from previous chest X-ray Final Result Comparison is made to previous examination dated 01/30/2017. Lungs are well-expanded and clear. There is no pleural effusion. No pneumothorax. The heart size is upper limits of normal for portable technique. Unchanged prominence of the central pulmonary vasculature. No mediastinal widening Electronically signed by: Brando Restrepo M.D. ED Course as of Jul 27 2122MonJul 26, [id number] I, LOREN BONNER, have personally performed the services described in the documentation, reviewedthe documentation, as recorded by the scribe in my presence, and it accurately and completely records my words and actions. [DA] 2033 Pre-hypertension/Hypertension: The patient has been informed that they may have pre-hypertension or Hypertension based on a blood pressure reading in the Emergency Department. I recommend that the patient call the primary care provider listed on their discharge instructions or a physician of their choice this week to arrange follow up for further evaluation of possible pre- hypertension or Hypertension. BP: 143/75 [JE] ED Course User Index [DA] Loren Bonner MD [JE] Brian Jarrell MDM Number of Diagnoses or Management Options Diagnosis management comments: IN MY MEDICAL DECISION MAKING THE FOLLOWING DIFFERENTIAL DIAGNOSES WERE CONSIDERED BEFORE ARRIVING AT FINAL DIAGNOSIS AND MANY WERE EITHER RULED OUT OR APPEARED UNLIKELY: Airway Obs / Foreign Body, COPD Exacerbation, Pulmonary Embolism, Asthma, NC / Unstable Angina, SARS, Other: CHF / Pulmonary Edema, Pneumonia, Tuberculosis, Chest Wall Pain, Pneumothorax, Bronchitis Amount and/or Complexity of Data Reviewed Clinical lab tests: ordered Tests in the radiology section of CPT??: ordered Independent visualization of images, tracings, or specimens: yes Shortness of breath Essential hypertension Nausea and vomiting, intractability of vomiting not specified, unspecified vomiting type 9:23 PM: This note is prepared by Brian Jarrell acting as a Scribe for Radha Liriano MD. Signed by: Brian Jarrell, 9:23 PM, 07/27/2017. Loren Bonner MD 07/27/172122 * Adwoa Boateng RN - 07/26/2017 7:18 PM CDT Patient reports increased fatigue and SOB on exertion with lightheadedness x 2 days. Symptoms worsened around 4 pm today. States I feel like I can't take a deep breath. Hx DVT and PE, on blood thinners. documented in this encounter Miscellaneous Notes * Plan of Care - Lila Arita RN - 07/28/2017 2:49 PM CDT Goals: Summary: Patient is ready for discharge, discharge instructions are reviewed with patient at this time. * Medical Student - Iban Blanco - 07/28/2017 10:25 AM CDT Daily Progress Subjective Pt. States that her SOB has improved. She is still experiencing some abdominal pain. Had BM this morning. Will have EGD done today to explore potential cause of abdominal pain. Denies any chest pain,N/V. Stated that bactrim given for UTI made her itch so it was stopped. Objective Vitals: 24hr Min/Max: Temp Min: 36.4 ??C (97.5 ??F) Max: 36.6 ??C (97.8 ??F) Pulse Min: 82 Max: 84 BP Min: 103/72 Max: 123/86 Resp Min: 18 Max: 18 SpO2 Min: 96 % Max: 99 % Most Recent : Vitals: 07/28/17 0750 BP: 123/86 Pulse: 82 Resp: 18 Temp: 36.4 ??C (97.5 ??F) SpO2: 96% I/O last 2 completed shifts: In: 720 [P.O.:720] Out: - No intake/output data recorded. Physical Exam: BP 123/86 (BP Location: Right arm, Patient Position: Sitting) Pulse 82 Temp 36.4 ??C (97.5 ??F)(Oral) Resp 18 Ht 154.9 cm (5' 0.98 ) Wt 124.6 kg (274 lb 11.1 oz) SpO2 96% BMI 51.93 kg/m?? General appearance: appears stated age, cooperative, no distress and morbidly obese Head: Normocephalic, without obvious abnormality, atraumatic Eyes: conjunctivae/corneas clear. PERRL, EOM's intact Lungs: clear to auscultation bilaterally Heart: regular rate and rhythm, S1, S2 normal, no murmur, click, rub or gallop Abdomen: soft, non-tender; bowel sounds normal; no masses, no organomegaly Extremities: extremities normal, warm and well-perfused Neurologic: Alert and oriented X 3, normal strength and tone. Normal symmetric reflexes. Normal coordination and gait Lab/Radiology/Diagnostic Review: Laboratory review: Lab results in the last 24 hours: No results found for this or any previous visit (from the past 24 hour(s)). Assessment/Plan Principal Problem: Generalized weakness Active Problems: Dyspnea Unintentional weight loss Acute cystitis without hematuria Nausea and vomiting :} Generalized Weakness-Likely due to deconditioning, PT/OT will see to make sure she can do activities of daily life once discharged from hospital :} Unintentional weight loss- GI consulted, will have EGD preformed today to see if they can find source of problem. If no problem may need gastric emptying study for possible gastroparesis :} Dyspnea- Likely due to deconditioning vs. LUL vs. Obesity hypoventilation syndrome, CTA chest showed no evidence of PE, CXR was clear. Duo-Neb PRN. Respiratory therapy has been consulted ?? :} UTI- Bactrim stopped will switch to macrobid ?? :} DM- SSI for diabetes ?? :} HTN-Continue liinopril ?? :} Neuropathy-Continue gabapentin ?? :} Breast Cancer-continue aromasin ?? :} LUL- cpap when sleeping at night ?? :} RLS- Continue Requip ?? :} Overactive bladder-Continune oxybutynin ?? :} DVT prophylaxis- Continue xarelto Cosigned by Radha Liriano MD at 07/29/2017 11:26 AM CDT * Plan of Care - Mary De RN - 07/28/2017 5:02 AM CDT Goals: Summary: pt npo for procedure. She is on bipap. Vs stable. * Medical Student - Iban Blanco - 07/27/2017 10:26 AM CDT History and Physical Subjective Patient is a 62 y.o. female with with a past medical history of CHF, LUL, HTN and Diabetes Mellitus. She presented to ED yesterday with complaint of SOB and generalized weakness. Pt. States that she has been feeling fatigued and weak for the past two days, and yesterday she awoke from a nap and states that she could not stand without feeling as if she was going to pass out or fall. She also stated that she had chest pressure and palpitations. She also states her SOB has increased and she now gets SOB with talking and minimal activity also causes SOB. She also states that she has orthopnea. She stated nothing made her SOB better and nothing made it worse. She also states that she has had weight loss of 40 lbs since March that is being worked up outpatient. She states in this time she has had N/V that has restricted her eating due to fear of vomiting. She states she cannot eat consecutive meals because this will cause her to throw up so she only eats 1-2 small meals a day. She states she had colonoscopy done last week that was negative for any results, and her GI doctor stated her next step was for an EGD. Past Medical History: Diagnosis Date ??? Adiposity [...] Dose ??? exemestane (AROMASIN) 25 mg tablet Take 25 mg by mouth daily. After a meal ??? rivaroxaban (XARELTO) 10 mg tablet Take 10 mg by mouth daily. ??? HYDROcodone-acetaminophen (NORCO) 5-325 mg per tablet Take 1-2 tablets every 4 hours as needed for pain 60 tablet 0 ??? lisinopril (PRINIVIL,ZESTRIL) 20 mg tablet take 1 Tablet (20MG) by oral route every day 0 ??? oxybutynin (DITROPAN) 5 mg tablet take 1 tablet by oral route every day 0 0 ??? rOPINIRole (REQUIP) 5 mg tablet take 1 tablet (5MG) by oral route every day at bedtime 0 Allergies Allergen Reactions ??? Cephalosporins ??? Ceftriaxone Other (See comments) Reaction: Other allergic reaction, ??? Metoclopramide Other (See comments) Reaction: Feels funny, Social History Substance Use Topics ??? Smoking [...] leg syndrome; Review of Systems: Review of systems per HPI and otherwise all other systems are negative Objective Vitals: Arrival Vitals [07/26/17 1913] Temp 36.6 ??C (97.8 ??F) Pulse 97 Resp 24 BP 143/75 SpO2 100 % Temp src Oral Heart Rate Source Monitor;Pulse Oximetry Patient Position Sitting BP Location Right arm FiO2 (%) 24hr Min/Max: Temp Min: 36.4 ??C (97.6 ??F) Max: 36.6 ??C (97.8 ??F) Pulse Min: 53 Max: 104 BP Min: 92/51 Max: 143/75 Resp Min: 11 Max: 31 SpO2 Min: 90 % Max: 100 % Most Recent : Vitals: 07/27/17 0723 BP: 113/80 Pulse: 86 Resp: 18 Temp: 36.6 ??C (97.8 ??F) SpO2: 97% No intake/output data recorded. I/O this shift: In: 240 [P.O.:240] Out: - Physical exam: BP 113/80 (BP Location: Right arm, Patient Position: Lying) Pulse 86 Temp 36.6 ??C (97.8 ??F) (Oral) Resp 18 Ht 154.9 cm (5' 0.98 ) Wt 124.6 kg (274 lb 11.1 oz) SpO2 97% BMI 51.93 kg/m?? General appearance: appears stated age, cooperative, no distress and morbidly obese Head: Normocephalic, without obvious abnormality, atraumatic Eyes: conjunctivae/corneas clear. PERRL, EOM's intact Lungs: clear to auscultation bilaterally Heart: regular rate and rhythm, S1, S2 normal, no murmur, click, rub or gallop Abdomen: soft, non-tender; bowel sounds normal; no masses, no organomegaly Extremities: no edema, redness or tenderness in the calves or thighs Pulses: 2+ and symmetric Skin: Skin color, texture, turgor normal. No rashes or lesions Neurologic: Alert and oriented X 3, normal strength and tone. Normal symmetric reflexes. Normal coordination and gait Lab/Radiology/Diagnostic Review: Laboratory review: Lab results in the last 24 hours: Recent Results (from the past 24 hour(s)) ECG 12 lead Collection Time: 07/26/17 7:12 PM Result Value Ref Range Patient age 62 years Interpretation Text SINUS RHYTHMNORMAL ECGPREVIOUS TRACIN01/30/2017 10.25No significant change compared to prior ECG Ventricular Rate EKG/Min 93 /min P Wave Duration 112 ms QRS-Interval (MSEC) 84 ms OH-Interval (MSEC) 131 ms QT Interval 337 ms QTc 394 ms QTC Interval ms P Holmes 47 deg QRS Holmes 23 deg T Holmes 61 deg B-type natriuretic peptide Collection Time: 07/26/17 9:00 PM Result Value Ref Range B-Type Natriuretic Peptide (BNP) 27 0 - 100 pg/mL CBC with auto differential Collection Time: 07/26/17 9:00 PM Result Value Ref Range WBC 16.51 (H) 3.80 - 9.90 K/cumm RBC 4.59 3.90 - 5.20 M/cumm Hgb 12.4 11.9 - 15.5 g/dL Hct 40.2 35.6 - 45.5 % MCV 87.6 81.3 - 96.4 fL MCH 27.0 (L) 27.1 - 33.3 pg MCHC 30.8 (L) 32.3 - 35.7 g/dL RDW CV 15.0 (H) 11.1 - 14.9 % RDW SD 48.1 35.7 - 48.1 fL Platelets 372 150 - 400 K/cumm MPV 9.6 9.1 - 12.3 fL NRBC Abs 0.00 0.00 - 0.01 K/cumm D-dimer, quantitative Collection Time: 07/26/17 9:00 PM Result Value Ref Range D-dimer <150 150 - 230 ng/mL D-DU Troponin I Collection Time: 07/26/17 9:00 PM Result Value Ref Range Troponin I <0.03 0.00 - 0.14 ng/mL Protime-INR Collection Time: 07/26/17 9:00 PM Result Value Ref Range PT 14.4 (H) 9.5 - 13.0 sec INR 1.27 (H) 0.90 - 1.20 Differential, auto Collection Time: 07/26/17 9:00 PM Result Value Ref Range Neutrophils 71.7 % Immature granulocytes 0.6 % Lymphocytes 19.3 % Monos 6.7 % Eosinophils 0.2 % Basophils 0.2 % Neutrophil absolute 11.82 (H) 1.70 - 6.50 K/cumm Immature granulocyte, abs 0.10 0.00 - 0.10 K/cumm Lymphocytes, abs 3.19 0.80 - 3.30 K/cumm Monos, abs 1.11 (H) 0.20 - 0.80 K/cumm Eosinophils, abs 0.25 0.00 - 0.50 K/cumm Basophils, abs 0.04 0.00 - 0.10 K/cumm Troponin I Collection Time: 07/26/17 11:53 PM Result Value Ref Range Troponin I 0.03 0.00 - 0.14 ng/mL Comprehensive metabolic panel Collection Time: 07/26/17 11:53 PM Result Value Ref Range Sodium 132 (L) 135 - 145 mmol/L Potassium 3.9 3.5 - 5.1 mmol/L CO2 25 22 - 32 mmol/L BUN 20 8 - 24 mg/dL Glucose 191 70 - 199 mg/dL Creatinine 0.80 0.60 - 1.30 mg/dL Calcium 9.3 8.4 - 10.5 mg/dL Chloride 101 100 - 114 mmol/L Albumin 3.3 3.2 - 4.8 g/dL AST 19 7 - 40 Units/L ALT 17 1 - 45 Units/L Alk phos 68 30 - 110 Units/L Bilirubin 0.50 0.10 - 1.30 mg/dL Protein, pl 7.9 6.0 - 8.3 g/dL Anion Gap 10 8 - 16 mmol/L eGFR Collection Time: 07/26/17 11:53 PM Result Value Ref Range GFR 80 mL/min/1.73 m2 Urinalysis reflex to microscopic Collection Time: 07/27/17 2:59 AM Result Value Ref Range Color, ur Yellow Clarity, ur Clear Specific gravity, ur 1.021 1.001 - 1.033 pH, ur 5.0 5.0 - 8.0 Protein, ur Negative Negative Glucose, ur Negative Negative Ketones, ur Negative Negative Bilirubin, ur Negative Negative Blood, ur 2+ (A) Negative Urobilinogen, ur <2.0 <2.0 Nitrites, ur Negative Negative Leukocyte esterase, ur 1+ (A) Negative Urinalysis, microscopic only Collection Time: 07/27/17 2:59 AM Result Value Ref Range RBC, ur 1 0 - 3 /HPF WBC, ur 7 (H) 0 - 5 /HPF Bacteria, ur 0 Epithelial cells, renal, ur 0 0 - 0 /HPF Mucus, ur Present Imaging review: I have reviewed the result(s) Assessment /Plan Active Problems: Generalized weakness Dyspnea :} Generalized Weakness-Likely due to deconditioning, BNP was normal, CXR was unremarkable, will continue to observe patient :} Dyspnea- Likely due to deconditioning vs. LUL vs. Obesity hypoventilation syndrome, CTA chest showed no evidence of PE, CXR was clear. Duo-Neb PRN :} DM- SSI for diabetes :} HTN-Continue liinopril :} Neuropathy-Continue gabapentin :} Breast Cancer-continue aromasin :} LUL- cpap when sleeping at night :} RLS- Continue Requip :} Overactive bladder-Continune oxybutynin :} DVT prophylaxis- Continue xarelto Cosigned by Radha Liriano MD at 07/29/2017 11:26 AM CDT * ED Re-evaluation Note - Sandeep Marie MD - 07/27/2017 2:28 AM CDT ED Re-evaluation Pt reevaluated, still feels subjective SOB. Labs / radiology results reviewed. Offered inpt vs outpt tx of pts sx, pt states that she lives alone at home and would feel more comfortable being in the hospital. Will admit, start abx for possible pna. Sandeep Marie MD 07/27/17 0229 * ED Procedure Note - Loren Bonner MD - 07/26/2017 8:30 PM CDTAssociated Order(s): ECG 12-LEAD Procedure ECG 12 lead Date/Time: 07/26/2017 8:30 PM Performed by: LOREN BONNER V. Authorized by: LOREN BONNER V. Rate: ECG rate: 93 ECG rate assessment: normal Rhythm: Rhythm: sinus rhythm Ectopy: Ectopy: none QRS: QRS axis: Normal QRS intervals: Normal Conduction: Conduction: normal ST segments: ST segments: Non-specific T waves: T waves: non-specific Loren Bonner MD 07/26/172029 documented in this encounter Plan of Treatment Not on file documented as of this encounter Procedures Procedure Name Priority Date/Time Associated Diagnosis Comments SURGICAL PATHOLOGY Routine 07/28/2017 1:58 PM CDT Nausea and vomiting, intractability of vomiting not specified, unspecified vomiting type EGD 07/28/2017 12:07 PM CDT ESOPHAGOGASTRODUODENOSCOPY BIOPSY 07/28/2017 11:55 AM CDT Nausea and vomiting, intractability of vomiting not specified, unspecified vomiting type DISCHARGE LABORATORY CUMULATIVE REPORT 07/28/2017 12:00 AM CDT SURGICAL PATHOLOGY 07/28/2017 12:[address] ABDOMEN PELVIS WO CONTRAST IP Routine 3:38 PM CDT URINALYSIS AND REFLEX TO MICROSCOPIC STAT 07/27/2017 2:59 AM CDT URINALYSIS, MICROSCOPIC ONLY STAT 08/2017 2:59 AM CDT BLOOD CULTURE STAT 07/27/2017 2:[address] CHEST PE W CONTRAST ED 8 1:07 AM CDT EGFR STAT 07/26/2017 11:53 PM CDT TROPONIN I Timed 07/26/2017 11:53 PM CDT COMPREHENSIVE METABOLIC PANEL STAT 11:53 PM CDT XR CHEST 1 VIEW ED 07/26/2017 9:05 PM CDT DIFFERENTIAL AUTO Routine 07/26/2017 9:00 PM CDT CBC WITH AUTO DIFFERENTIAL Routine 07/26 9:00 PM CDT TROPONIN I Timed 07/26/2017 9:00 PM CDT PROTIME-INR Routine 07/26/2017 9:00 PM CDT D-DIMER, QUANTITATIVE STAT 07/26/2017 9:00 PM CDT B-TYPE NATRIURETIC PEPTIDE STAT 07/26 9:00 PM CDT ECG 12-LEAD Routine 07/26/2017 7:12 PM CDT documented in this encounter Results * Surgical pathology (07/28/2017 1:58 PM CDT) Tissue (Duodenum, Biopsy) 07/28/2017 12:14 PM CDT Tissue (Gastric/Stomach biopsy) 07/28/2017 12:14 PM CDT Narrative PATHOLOGY CH - 07/29/2017 11:56 AM CDT [facility] Department of Pathology [address] [place], [place] [id number] Final Report ?Patient Name: MOHSEN MARQUES Address: Y[place] Service: Medical ??ROSALINA STOUT ??[facility] Location: [facility] E Taken: 07/28/2017 Gender: F Received 07/28/2017 : 1955 (Age: 62) Hospital #: [id number] Accessioned: 07/28/2017 ?? Patient Type: OBS Reported 07/29/2017 Physician(s): Avery Valencia M.D. ?? Diagnosis: A. ??Duodenum, biopsy: ? -No histopathologic normality. B. ??Stomach, antrum, biopsy: ? -Fragment of benign gastric mucosa. ?? Harrison Hooks M.D. ??Report Electronically Reviewed and Signed Out By ??Harrison Hooks M.D. ??07/29/2017 11:56:58 Specimen(s) Received: A: Duodenum B: Antrum Microscopic Description: A. ??Microscopic examination of duodenal biopsy, examined multiple levels shows a superficial biopsy composed of a single fragment of small to sometimes mucosa with overall preservation of villous architecture and no significant inflammatory component above what is normally seen. ??There is no evidence of dysplasia or malignancy. B. ??Microscopic examination of the gastric antrum, examined multiple levels shows a single fragment of minimally edematous and congested gastric mucosa with no significant inflammatory component above what is normally seen. ??I do not identify evidence of microorganisms morphologically compatible with Helicobacter species by routine light microscopy. ??There is no evidence of dysplasia or malignancy. Clinical History: Nausea and vomiting, intractability of vomiting not specified, unspecified vomiting type Description: Esophagogastroduodenoscopy biopsy Gross Description: All parts are received labeled Mohsen Sykesrangel . A. ??The container is labeled duodenum . ??It is two dixon tissue fragments measuring 1-2 mm. ??All in A. B. ??The container is labeled antrum . ??It is one 6 mm strip of pale-dixon tissue all in B. ??Jin Cox R.N., P.A./Harrison Hooks M.D. Complete report with images are only be viewable in the PDF report The performance characteristics of some immunohistochemical stains, fluorescence in-situ hybridization tests and immunophenotyping by flow cytometry cited in this report (if any) were determined by the Surgical Pathology Department at [facility] as part of an ongoing corporate quality engineer program and in compliance with federally mandated [...] a high complexity laboratory under CLIA '88. The FDA has determined that such clearance or approval is not necessary. ??This test is used for clinical purposes. ??It should not be regarded as investigational or for research. ??Nevertheless, federal rules concerning the medical use of analyte specific reagents require that the following disclaimer be attached to the report: This test was developed and its performance characteristics determined by the Surgical Pathology Department [facility]. ??It has not been cleared or approved by the U. S. Food and Drug Administration. Liu Jerez MD LAB PATHOLOGY ORDERABLE S Final Result Performing Organization Address City/State/[facility] Co de Phone Number [place] [phone] [place] [phone] * EGD (07/28/2017 12:07 PM CDT) Anatomical Region Laterality Modality Other Narrative Procedure Note Liu Jerez MD - 07/28/2017 12:07 PM CDT [facility] Patient Name: Mohsen Marques Procedure Date: 07/28/2017 12:07 PM Date of : 1955 Admit Type: Inpatient Age: 62 Gender: Female Note Status: Finalized Attending MD: Liu Jerez MD Procedure Date: 07/28/2017 Procedure: Upper GI endoscopy Indications: Epigastric abdominal pain Providers: Liu Jerez MD, Tete Khan CRNA(Anesthesia Staff), Felicitas Pryor RN Referring MD: Medicines: Monitored Anesthesia Care Complications: No immediate complications. Estimated Blood Loss: Estimated blood loss was minimal. Procedure: After obtaining informed consent, the endoscope was passed under direct vision. Throughout theprocedure, the patient's blood pressure, pulse, and oxygen saturations were monitored continuously. The scopewas passed under direct vision. The Endoscope [id number] was introduced through the mouth, andadvanced to the second part of duodenum. The upper GIendoscopy was accomplished without difficulty. The patient tolerated the procedure well. Findings: The esophagus was normal. Diffuse mildly erythematous mucosa without bleeding was found in the gastric antrum. Biopsies were taken with a cold forceps forhistology. Estimated blood loss was minimal. The duodenal bulb, first part of the duodenum and 2nd part of the duodenum were normal. Biopsies for histology were taken with a cold forceps for for evaluation of celiac disease. Estimated blood losswas minimal. Impression: - Normal esophagus. - Erythematous mucosa in the antrum. Biopsied. - Normal duodenal bulb, first part of the duodenumand 2nd part of the duodenum. Biopsied. Recommendation: - Await pathology results. - Follow an antireflux regimen. Procedure Code(s): --- Professional --- 83137, Esophagogastroduodenoscopy, flexible,transoral; with biopsy, single or multiple Diagnosis Code(s): --- Professional --- K31.9, Disease of stomach and duodenum,unspecified R10.13, Epigastric pain CPT copyright 2014 [employer]. All rights reserved. The codes documented in this report are preliminary and upon dough raiser reviewmay be revised to meet current compliance requirements. Electronically signed by Liu Jerez M.D. Liu Jerez MD 07/28/2017 12:25:44 PM Number of Addenda: 0 Note Initiated On: 07/28/2017 12:07 PM Liu Jerez MD ENDOSCOPY PROCEDURES Fi nal Result * SURGICAL PATHOLOGY (07/28/2017 12:00 AM CDT) Narrative 07/28/2017 12:00 AM CDT Ordered by an unspecified provider. Historical Provider LAB PATHOLOGY ORDERABLES Final Result * DISCHARGE LABORATORY CUMULATIVE REPORT (07/28/2017 12:00 AM CDT) Narrative 07/28/2017 12:00 AM CDT Ordered by an unspecified provider. Historical Provider LAB BLOOD ORDERABLES Deann l Result * CT abdomen pelvis without contrast (07/27/2017 3:38 PM CDT) Anatomical Region Laterality Modality Body N/A Computed Tomogra phy Impressions 07/27/2017 3:52 PM CDT Unremarkable nonenhanced CT of the abdomen and pelvis. ??Bilateral nonobstructing renal calculi. ??Normal appendix. ?? Electronically signed by: Bruce Lake M.D. Narrative 07/27/2017 3:52 PM CDT RESULT: EXAMINATION: CT ABDOMEN PELVIS WO CONTRAST Date: 07/27/2017 2:45 PM History: ?? Rt sided abd pain, radiates to center of belly, n/v, abnormal weight loss; Hx of coreen and hernia repair Technique: Transaxial computed tomographic images of the abdomen and pelvis were obtained without the administration of intravenous contrast. Multiplanar coronal and sagittal images were reformatted. Comparison: 01/13/2017 Findings: Visualized lung bases are clear The liver, spleen, pancreas, adrenals kidneys appear within normal is. ??Bilateral nonobstructing renal calculi. ??6 mm nonobstructing stone in the upper pole of the right kidney. ??8 mm nonobstructing calculus in the lower pole of left kidney. ??Evidence of ventral abdominal wall hernia repair and anterior abdominal wall mesh work is seen in place. Sigmoid diverticulosis. ??Partially filled urinary bladder normal. Normal size uterus. A subcentimeter nabothian cyst in the cervix. ??Ovaries are atrophic. No bowel obstruction. ??A normal appendix visualized. ??Few normal sized lymph node in the mesentery of small bowel. 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 IMPRESSION: Unremarkable nonenhanced CT of the abdomen and pelvis. Bilateral nonobstructing renal calculi. Normal appendix. Electronically signed by: Bruce Lake M.D. us Radha Liriano MD IMG CT PROCEDURES Final R esult * (ABNORMAL) Urinalysis, microscopic only (07/27/2017 2:59 AM CDT) RBC, ur 1 0 - 3 /HPF [facility] WBC, ur 7(H) 0 - 5 /HPF [facility] Bacteria, ur 0 [facility] Epithelial cells, renal, ur 0 0 - 0 /HPF [facility] Mucus, ur Present [facility] Urine 07/27/2017 2:59 AM CDT 07/27/2017 3:05 AM CDT Narrative [facility] - 07/27/2017 3:36 AM CDT Loren Bonner MD LAB URINE ORDERABLES Final Resu lt Performing Organization Address [facility] Co de Phone Number MARY JANE ARNOLD [phone] [facility] [place] [address] * (ABNORMAL) Urinalysis reflex to microscopic (07/27/2017 2:59 AM CDT) Color, ur Yellow [facility] Clarity, ur Clear [facility] Specific gravity, ur 1.021 1.001 - 1.033 [facility] pH, ur [...] esterase, ur 1+(A) Negative [facility] Urine 07/27/2017 2:59 AM CDT 07/27/2017 3:05 AM CDT Narrative [facility] - 07/27/2017 3:28 AM CDT Loren Bonner MD LAB URINE ORDERABLES Final Resu lt Performing Organization Address [facility] Co de Phone Number MARY JANE [address] [address] Department [place] [address] * (ABNORMAL) Blood culture Blood (07/27/2017 2:58 AM CDT) Pathologist [facility] Direct Specimen Exam Rapid Molecular Analysis: Coagulase negative Staphylococcus species detected by the Verigene Blood Culture Nucleic Acid Test. ??This test does not exclude the possibility of a mixed bacterial infection. Notification of: Coagulase negative Staphylococcus species called to and read back by: Lesia Watson RN [phone] on 07/31/2017 06:12:00 by: Jesús HINTON Comment:Testing performed by : [facility], [address] [place] [address]., [id number] Direct Specimen Exam Stain: Gram Positive Cocci in clusters * ??* ??* ??* ??* ??* ??* ??* ??* ??* ??* ??* ??* ??* ??* ??* ??* ??* ??* ??* Notification of: Gram Positive Cocci in clusters called to and read back by: Lesia Watson RN, on 07/30/2017 19:51:48 by: Noe HINTON Comment:Testing performed by : [facility], [address] [place] [address]., [id number] Report Final Report: Coagulase negative Staphylococcus species Isolate of questionable significance. ??If a similar isolate is recovered from a second blood culture collected within 3 days of this culture, both will be evaluated and, if determined to be related, antimicrobial susceptibility testing will be performed. (.) MARY JANE Comment:Testing performed by : [facility], [address] [place] [address]., [id number] Organism COAGULASE NEGATIVE STAPHYLOCOCCUS SPECIES MARY JANE Blood specimen (specimen) (Antecubital, right) 07/27/2017 2:58 AM CDT 07/27/2017 7:53 AM CDT Johnathan HINTON CH - 08/02/2017 4:31 PM CDT Blood cultures are incubated for [...] organism identification may be performed using the [employer]ig[employer] Nanosphere Gram Positive Blood Culture Assay. ??The Nanosphere assay detects microbial DNA in positive blood culture broth via hybridization of target DNA to capture oligonucleotides on a microarray. ??This assay has been cleared by the [place] Food and Drug Administration and its performance characteristics have been verified by the [facility]. Current Interpretive Data was last revised on 2013. us Sandeep Marie MD LAB MICROBIOLOGY - GENE R[place] [address] [address] Department [place] [address] * CT Chest PE W Contrast (07/27/2017 1:07 AM CDT) Anatomical Region Laterality Modality Body N/A Computed Tomogra phy Impressions 07/27/2017 8:23 AM CDT No evidence of acute pulmonary emboli. Heterogeneous thyroid. ??Recommend dedicated thyroid ultrasound. Right nephrolithiasis. A preliminary report was submitted by [facility] on 07/27/2017 at 2:09 AM. Electronically signed by: Prince House M.D. Narrative 07/27/2017 8:23 AM CDT RESULT: EXAMINATION: CT CHEST WITH INTRAVENOUS CONTRAST, [...] Mild bilateral dependent lung atelectasis is noted. ??The mild peripheral left upper lobe density is unchanged and may represent scarring or atelectasis. ??The lungs are free of acute infiltrates. ??There is no pneumothorax or pleural effusion. The heart size is normal. ??There is no evidence of central pulmonary arterial filling defect to suggest acute embolus. ??There is no evidence of thoracic aortic aneurysm or dissection. ??There is no pericardial effusion. ??Scattered mediastinal lymph nodes are subcentimeter. ??The thyroid gland has a heterogeneous appearance. The right thyroid lobe is larger than the left, possibly due to underlying nodule. ??Recommend dedicated thyroid ultrasound. ??There is no axillary lymphadenopathy. ??The bilateral breasts are absent. Degenerative changes involve the thoracic spine. The gallbladder is surgically absent. ??A 4 mm calculus is seen within the superior right renal pole. ??There is no evidence of hydronephrosis in the partially imaged kidney. 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 Procedure Note Prince House MD - 07/27/2017 RESULT: EXAMINATION: CT CHEST WITH INTRAVENOUS CONTRAST, [...] imaged kidney. 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 IMPRESSION: No evidence of acute pulmonary emboli. Heterogeneous thyroid. Recommend dedicated thyroid ultrasound. Right nephrolithiasis. A preliminary report was submitted by [facility] on 07/27/2017 at 2:09 AM. Electronically signed by: Prince House M.D. us Sandepe Marie MD IMG CT PROCEDURES Final Result * eGFR (07/26/2017 11:53 PM CDT) eGFR 80 mL/min/1.7 3 m2 MARY JANE Comment: Interpretive Data Reference Interval Normal ?>/= 90 mL/min/1.73m2 Mildly decreased* ? 60 - 89 mL/min/1.73m2 Mildly to moderately decreased ?45 - 59 mL/min/1.73m2 Moderately to severely decreased ??30 - 44 mL/min/1.73m2 Severely decreased ?15 - 29 mL/min/1.73m2 Kidney Failure ?< 15 ??mL/min/1.73m2 *Relative to young adult level If -German multiply value by 1.16. Estimated glomerular filtration [...] was last reviewed 2015. Blood specimen (specimen) 07/26/2017 11:53 PM CDT 07/27/2017 12:01 AM CDT Narrative MARY JANE - 07/27/2017 12:24 AM CDT us Sandeep Marie MD LAB BLOOD ORDERABLES Fi nal Result MARY JANE [id number] [place] [address] * (ABNORMAL) Comprehensive metabolic panel (07/26/2017 11:53 PM CDT) Sodium 132(L) 135 - 145 mmol/L [facility] Potassium, pl 3.9 3.5 - 5.1 mmol/L [facility] CO2 25 22 - 32 mmol/L [facility] BUN 20 8 - 24 mg/dL [facility] Glucose 191 70 - 199 mg/dL CERNER Comment: Interpretive [...] interpretive data was last revised 2017. Creatinine 0.80 0.60 - 1.30 mg/dL [facility] Calcium 9.3 8.4 - 10.5 mg/dL [facility] Chloride 101 100 - 114 mmol/L [facility] Albumin 3.3 3.2 - 4.8 g/dL [facility] AST 19 7 - 40 Units/L [facility] ALT 17 1 - 45 Units/L [facility] Alk phos 68 30 - 110 Units/L [facility] Bilirubin, total 0.50 0.10 - 1.30 mg/dL [facility] Protein, pl 7.9 6.0 - 8.3 g/dL [facility] Anion gap 10 8 - 16 mmol/L [facility] Blood specimen (specimen) 07/26/2017 11:53 PM CDT 07/26/2017 11:59 PM CDT [facility]ative [facility] - 07/27/2017 12:24 AM CDT us Sandeep Marie MD LAB BLOOD ORDERABLES Fi nal Result [facility] [id number] Department [place] [address] * Troponin I (07/26/2017 11:53 PM CDT) Troponin I 0.03 0.00 - 0.14 ng/mL MARY JANE ARNOLD Comment: Interpretive Data Normal: ? 0.00 - 0.14 ng/mL Indeterminate: ?0.15 - 0.50 ng/mL NC / Cardiac Muscle Damage: ? >0.50 ng/mL Current interpretive data was last reviewed 2015 Blood specimen (specimen) 07/26/2017 11:53 PM CDT 07/27/2017 Narrative MARY JANE ARNOLD - 07/27/2017 12:24 AM CDT us Loren Bonner MD LAB BLOOD ORDERABLES Final Resu lt [facility] [address] [place] [address] * XR Chest 1 View (07/26/2017 9:05 [...] widening Electronically signed by: Brando Restrepo M.D. Loren Bonner MD IMG XR PROCEDURES Final Result * (ABNORMAL) Differential, auto (07/26/2017 9:00 PM CDT) Neutrophil pct 71.7 % [facility] Imm gran pct 0.6 % [facility] Lymphocyte pct 19.3 % [facility] Monocyte pct 6.7 % [facility] Eosinophil pct 0.2 % [facility] Basophil pct 0.2 % [facility] Neutrophil abs 11.82(H) 1.70 - 6.50 K/cumm [facility] Imm gran abs 0.10 0.00 - 0.10 K/cumm [facility] Lymphocyte abs 3.19 0.80 - 3.30 K/cumm [facility] Monocyte abs 1.11(H) 0.20 - 0.80 K/cumm [facility] Eosinophil abs 0.25 0.00 - 0.50 K/cumm [facility] Basophil abs 0.04 0.00 - 0.10 K/cumm [facility] Blood specimen (specimen) 07/26/2017 9:00 PM CDT 07/26/2017 9:01 PM CDT Narrative [facility] - 07/26/2017 9:11 PM CDT Loren Bonner MD LAB BLOOD ORDERABLES Final Resu lt MARY JANE [place] [address] [address] [place] [address] * (ABNORMAL) Protime-INR (07/26/2017 9:00 PM CDT) PT 14.4(H) 9.5 - 13.0 sec [facility] INR 1.27(H) 0.90 - 1.20 [facility] Blood specimen (specimen) 07/26/2017 9:00 PM CDT 07/26/2017 9:01 PM CDT Narrative [facility] - 07/26/2017 9:19 PM CDT Loren Bonner MD LAB BLOOD ORDERABLES Final Resu Performing Organization Address [facility] de Phone Number MARY JANE [phone] [address] [facility] [place] [address] * Troponin I (07/26/2017 9:00 PM CDT) Pathologist [facility] Troponin I <0.03 0.00 - 0.14 ng/mL MARY JANE Comment: Interpretive Data Normal: ? 0.00 - 0.14 ng/mL Indeterminate: ?0.15 - 0.50 ng/mL NC / Cardiac Muscle Damage: ? >0.50 ng/mL Current interpretive data was last reviewed 2015 Blood specimen (specimen) 07/26/2017 9:00 PM CDT 07/26/2017 9:01 PM CDT Narrative MARY JANE - 07/26/2017 9:23 PM CDT Loren Bonner MD LAB BLOOD ORDERABLES Final Resu Performing Organization Address [facility] de Phone Number MARY JANE [address] [address] [facility] [place] [address] * D-dimer, quantitative (07/26/2017 9:00 PM CDT) [facility] D-dimer <150 150 - 230 ng/mL D-DU MARY JANE Comment: Interpretive Data This D-dimer test is approved by the FDA to exclude suspected PE and DVT in outpatients when the result is <230 ng/ml D-DU in conjunction with a pre-test probability score of low or moderate using the Wells Criteria. Current Interpretive Data was last revised on 2015. Blood specimen (specimen) 07/26/2017 9:00 PM CDT 07/26/2017 9:01 PM CDT Narrative [facility] - 07/26/2017 10:00 PM CDT Loren Bonner MD LAB BLOOD ORDERABLES Final Resu lt Performing Organization Address [facility] Co de Phone Number MARY JANE ARN[place] [address] [place] [address] * (ABNORMAL) CBC with auto differential (07/26/2017 9:00 PM CDT) Pathologist [facility] WBC 16.51(H) 3.80 - 9.90 K/cumm [facility] RBC 4.59 3.90 - 5.20 M/cumm [facility] Hgb 12.4 11.9 - 15.5 g/dL [facility] Hct 40.2 35.6 - 45.5 % [facility] MCV 87.6 81.3 - 96.4 fL [facility] MCH 27.0(L) 27.1 - 33.3 pg [facility] MCHC 30.8(L) 32.3 - 35.7 g/dL [facility] RDW CV 15.0(H) 11.1 - 14.9 % [facility] RDW SD 48.1 35.7 - 48.1 fL [facility] Plt 372 150 - 400 K/cumm [facility] MPV 9.6 9.1 - 12.3 fL [facility] NRBC abs 0.00 0.00 - 0.01 K/cumm [facility] Blood specimen (specimen) 07/26/2017 9:00 PM CDT 07/26/2017 9:01 PM CDT Narrative MARY JANE CH - 07/26/2017 9:11 PM CDT Loren Bonner MD LAB BLOOD ORDERABLES Final Resu lt MARY JANE ARNOLD [address] [facility] [place] [address] * B-type natriuretic peptide (07/26/2017 9:00 PM CDT) Pathologist [facility] B-Type Natriuretic Peptide (BNP) 27 0 - 100 pg/mL MARY JANE Blood specimen (specimen) 07/26/2017 9:00 PM CDT 07/26/2017 9:01 PM CDT Narrative MARY JANE ARNOLD - 07/26/2017 9:26 PM CDT Loren Bonner MD LAB BLOOD ORDERABLES Final Resu lt Performing Organization Address City/[facility] Co de Phone Number MARY JANE [phone] [address] [place] [address] * ECG 12 lead (07/26/2017 7:12 PM CDT) Patient age 62 years [facility] Interpretation Text SINUS RHYTHMNORMAL ECGPREVIOUS TRACIN01/30/2017 10.25No significant change compared to prior ECG [facility] Comment:Physician Interprete r Dr. Humberto Armas M.D. Ventricular Rate EKG/Min 93 /min [facility] P Wave Duration 112 ms [facility] QRS-Interval (MSEC) 84 ms [facility] [place]-Interval (MSEC) 131 ms [facility] QT Interval 337 ms [facility] QTc 394 ms [facility] QTC Interval ms [facility] P Holmes 47 deg [facility] QRS Holmes 23 deg [facility] T Holmes 61 deg [facility] 07/26/2017 7:12 PM CDT Loren Bonner MD ECG ORDERABLES Final Result Performing Organization Address [facility] de Phone Number [facility] documented in this encounter Visit Diagnoses Diagnosis Generalized weakness- Primary Shortness of breath Essential hypertension Unspecified essential hypertension Nausea and vomiting, intractability of vomiting not specified, unspecified vomiting type Dyspnea Other dyspnea and respiratory abnormality Unintentional weight loss Loss of weight Acute cystitis without hematuria Nausea and vomiting Nausea with vomiting Essential hypertension Unspecified essential hypertension documented in this encounter Admitting Diagnoses Diagnosis Nausea and vomiting Nausea with vomiting documented in this encounter Administered Medications Inactive Administered Medications - up to 3 most recent administrations Medication Order MAR Action Action Date Dose Rate Site diphenhydrAMINE (BENADRYL) injection 25 mg 25 mg, intravenous, Once, On Valeri 07/27/17 at 1515, For 1 dose Given 07/27/2017 3:35 PM CDT 25 mg diphenhydrAMINE (BENADRYL) tab/cap 25 mg 25 mg, oral, 4 times daily PRN, itching, Starting on Mon07/27/17 at 1437 exemestane (AROMASIN) tablet 25 mg 25 mg, oral, Daily, First dose on Mon07/27/17 at 1015 Given 07/28/2017 8:24 AM CDT 25 mg Given 07/27/2017 11:33 AM CDT 25 mg HYDROcodone-acetaminophen (NORCO) 5-325 mg per tablet 1 tablet 1 tablet, oral, 4 times daily PRN, 2nd line for pain, Starting on Mon07/27/17 at 0509, Indications: PainIndications:Pain Given 07/27/2017 5:19 PM CDT 1 tablet Given 07/27/2017 7:59 AM CDT 1 tablet ioversol (OPTIRAY 350) syringe syringe 100 mL 100 mL, intravenous, Once in imaging, contrast, Starting on Mon07/27/17 at 0101, For 1 dose Given 07/27/2017 1:09 AM CDT 97 mL ipratropium-albuterol (DUO-NEB) 0.5-2.5 mg/3 mL nebulizer solution 3 mL 3 mL, nebulization, Once (incident response lead), On Mon07/26/17 at 2100, For 1 dose, Indications: Chronic Obstructive Pulmonary Disease with BronchospasmsIndications:Ch ronic Obstructive Pulmonary Disease with Bronchospasms Given 07/26/2017 8:54 PM CDT 3 mL ipratropium-albuterol (DUO-NEB) 0.5-2.5 mg/3 mL nebulizer solution 3 mL 3 mL, nebulization, Every 4 hours PRN (incident response lead), wheezing, shortness of breath, Starting on Mon07/27/17 at 1357, Indications: Chronic Obstructive Pulmonary Disease with BronchospasmsIndications:Ch ronic Obstructive Pulmonary Disease with Bronchospasms levoFLOXacin (LEVAQUIN) 750 mg/150 mL premix IVPB in 5% dextrose 750 mg 750 mg, intravenous, at 100 mL/hr, Administer over 90 Minutes, Once, On Mon07/27/17 at 0245, For 1 dose, Indications: Pneumonia, Community AcquiredIndications:Pneumon ia, Community Acquired New Bag 07/27/2017 2:58 AM CDT 750 mg 100 mL/hr Right Antecubital lidocaine (XYLOCAINE) 10 mg/mL (1 %) injection 2-10 mg 2-10 mg (0.2-1 mL), other, Once as needed, pain with IV placement, Starting on Mon07/28/17 at 1402, For 1 dose, Pre-Procedure (GI), Administer volume needed to infiltrate IV site., Indications: Administration of Local AnesthesiaIndications:Admin istration of Local Anesthesia lisinopril (PRINIVIL,ZESTRIL) tablet 20 mg 20 mg, oral, Daily, First dose on Mon07/27/17 at 0900 Given 07/28/2017 8:22 AM CDT 20 mg Given 07/27/2017 8:01 AM CDT 20 mg LORazepam (ATIVAN) tablet 1 mg 1 mg, sublingual, Once, On Mon07/26/17 at 2200, For 1 dose Given 07/26/2017 10:10 PM CDT 1 mg oxybutynin (DITROPAN) tablet 5 mg 5 mg, oral, 2 times daily, First dose on Mon07/27/17 at 0900 Given 07/28/2017 8:22 AM CDT 5 mg Given 07/27/2017 8:22 PM CDT 5 mg Given 07/27/2017 8:01 AM CDT 5 mg rivaroxaban (XARELTO) tablet 10 mg 10 mg, oral, Daily, First dose on Mon07/27/17 at 1015, Administer doses greater than or equal to 15 mg/day with food; doses of 10 mg/day may be administered without regard to meals., Indications: VTE ProphylaxisIndications:VTE Prophylaxis Given 07/27/2017 11:33 AM CDT 10 m g rOPINIRole (REQUIP) tablet 5 mg 5 mg, oral, Nightly, First dose on Mon07/26/17 at 2300 Given 07/27/2017 12:02 AM CDT 5 mg rOPINIRole (REQUIP) tablet 5 mg 5 mg, oral, Nightly, First dose on Mon07/27/17 at 2100, Pt home med Given 07/27/2017 8:22 PM CDT 5 mg sodium chloride 0.9% flush 0.5-20 mL 0.5-20 mL, intra-catheter, Every 8 hours scheduled, First dose on Mon07/27/17 at 2200, Flush volume based on line type and size. , Indications: FlushingIndications:Flushing Given 07/28/2017 6:54 AM CDT 10 mL Given 07/27/2017 10:54 PM CDT 10 mL sodium chloride 0.9% flush 0.5-20 mL 0.5-20 mL, intra-catheter, As needed, line care, Starting on Mon07/27/17 at 1748, Flush volume based on line type and size. Flush before and after each use. , Indications: FlushingIndications:Flush ing sodium chloride 0.9% flush 0.5-20 mL 0.5-20 mL, intra-catheter, Every 8 hours scheduled, First dose on Mon07/28/17 at 1445, Pre-Procedure (GI), Flush volume based on line type and size. , Indications: FlushingIndications:Flush ing sodium chloride 0.9% flush 0.5-20 mL 0.5-20 mL, intra-catheter, As needed, line care, Starting on Mon07/28/17 at 1402, Pre-Procedure (GI), Flush volume based on line type and size. Flush before and after each use. , Indications: FlushingIndications:Flush ing sodium chloride 0.9% infusion 30 mL/hr, intravenous, Continuous, Starting on Mon07/28/17 at 1445, Pre-Procedure (GI) sodium chloride 0.9% infusion 30 mL/hr, intravenous, Continuous, Starting on Mon07/28/17 at 1200 New Bag 07/28/2017 11:20 AM CDT 30 mL/hr 30 mL/hr sulfamethoxazole-trimetho prim (BACTRIM,SEPTRA) 800-160 mg per tablet 80 mg of trimethoprim 80 mg of trimethoprim, oral, 2 times daily, First dose on Mon07/27/17 at 1215, Indications: Urinary Tract/Genitourinary InfectionIndications:Urin sloane Tract/Genitourinary Infection Given 07/27/2017 12:10 PM CDT 80 mg of trimethoprim documented in this encounter Discontinued Medications Medication Sig Discontinue Reason Start Date End Da te aspirin (ASPIRIN LOW DOSE) 81 mg tablet take 1 tablet (81MG) by oral route every day Discontinued by another clinician 05/11/2012 07/27/2017 gabapentin (NEURONTIN) 300 mg capsule Take 1 capsule (300 mg total) by mouth 3 (three) times a day. Side effects 02/24/2017 07/27/2017 methIMAzole (TAPAZOLE) 5 mg tablet take 1 tablet by oral route every day Side effects 08/19/2013 07/27/2017 metoprolol (LOPRESSOR) 25 mg tablet take 0.5 tablet by oral route twice a day Error 08/19/2013 07/27/2017 traMADol (ULTRAM) 50 mg tablet take 1 Tablet by oral route 2 times every day if needed Discontinued by another clinician 03/12/2013 07/27/2017 UNABLE TO FIND Take by mouth. exametazine Error 07/27/2017 metoclopramide (REGLAN) 10 mg tabletIndications:Diab etic Gastroparesis Take 1 tablet (10 mg total) by mouth 4 (four) times a day. Before meals as needed for nausea Stop Taking at Discharge 07/28/2017 07/28/2017 omeprazole (PriLOSEC) 40 mg capsule Take 1 capsule (40 mg total) by mouth daily. 07/28/2017 07/28/2017 documented as of this encounter Historical Medications * This list may reflect changes made after this encounter. exemestane (AROMASIN) 25 mg tablet Take 25 mg by mouth daily. After a meal 8 UNABLE TO FIND Take by mouth. exametazine 8 rivaroxaban (XARELTO) 10 mg tablet Take 20 mg by mouth daily after dinner. 8 added in this encounter Active and Recently Administered Medications Times are shown in CDT. Scheduled Medication Order 07/26/2017 07/27/2017 07/28/2017 aspirin enteric coated tablet 81 mg 81 mg, oral, Once, On Valeri 07/27/17 at 0545, For 1 dose, Do not crush or chew 0814 (Not Given - Provider: Lila Arita RN - Reason: Patient/family refused - Comment: patient states she has not been taking ASA since she was started on xarelto) 1114 (MAR Hold - Provider: Automatic Transfer Provider - Reason: Patient not available)1401 (JUN Unhold - Provider: Automatic Transfer Provider) diphenhydrAMINE (BENADRYL) injection 25 mg (COMPLETED) 25 mg, intravenous, Once, On Mon07/27/17 at 1515, For 1 dose 1535 (Given - Provider: Lila Arita, NURIS) exemestane (AROMASIN) tablet 25 mg 25 mg, oral, Daily, First dose on Mon07/27/17 at 1015 1133 (Given - Provider: Lila Arita RN) 0824 (Given - Provider: Lila Arita, NURIS)1114 (JUN Hold - Provider: Automatic Transfer Provider - Reason: Patient not available)1401 (JUN Unhold - Provider: Automatic Transfer Provider) gabapentin (NEURONTIN) capsule 300 mg 300 mg, oral, 3 times daily, First dose on Mon07/27/17 at 0900, For 212 days 0801 (Not Given - Provider: Lila Arita RN - Reason: Patient/family refused - Comment: pt states she does not take this medication, it made her legs swell up)1535 (Not Given - Provider: Lila Arita RN - Reason: Patient/family refused - Comment: Pt does not take anymore)202 (Not Given - Provider: Mary De RN - Reason: Patient/family refused - Comment: pt refused. says she does not take anymore) 0822 (Not Given - Provider: Lila Arita RN - Reason: Patient/family refused)1114 ([facility] Hold - Provider: Automatic Transfer Provider - Reason: Patient not available)140 ([facility] Unhold - Provider: Automatic Transfer Provider)1600 (Due - Provider: Automatic Transfer Provider) ipratropium-albuterol (DUO-NEB) 0.5-2.5 mg/3 mL nebulizer solution 3 mL (COMPLETED) 3 mL, nebulization, Once (incident response lead), On Mon07/26/17 at 2100, For 1 dose, Indications: Chronic Obstructive Pulmonary Disease with Bronchospasms 2053 (Given - Provider: Shanthi Ac, TECHNOLOGY SPECIALIST) levoFLOXacin (LEVAQUIN) 750 mg/150 mL premix IVPB in 5% dextrose 750 mg (COMPLETED) 750 mg, intravenous, at 100 mL/hr, Administer over 90 Minutes, Once, On Mon07/27/17 at 0245, For 1 dose, Indications: Pneumonia, Community Acquired 0258 (New Bag - Provider: Margaret Barcenas, RN)0629 (Stopped - Provider: Mary De, NURIS) lisinopril (PRINIVIL,ZESTRIL) tablet 20 mg 20 mg, oral, Daily, First dose on Mon07/27/17 at 0900 0801 (Given - Provider: Lila Arita, NURIS) 0822 (Given - Provider: Lila Arita, RN)1114 (JUN Hold - Provider: Automatic Transfer Provider - Reason: Patient not available)1401 (JUN Unhold - Provider: Automatic Transfer Provider) LORazepam (ATIVAN) tablet 1 mg (COMPLETED) 1 mg, sublingual, Once, On Mon07/26/17 at 2200, For 1 dose 2210 (Given - Provider: Margaret Barcenas, NURIS) methIMAzole (TAPAZOLE) tablet 5 mg 5 mg, oral, Daily, First dose on Mon07/27/17 at 0900 0804 (Not Given - Provider: Lila Arita RN - Reason: Patient/family refused - Comment: pt states she does not take this medication) 08 (Not Given - Provider: Lila Arita RN - Reason: Patient/family refused)1114 (JUN Hold - Provider: Automatic Transfer Provider - Reason: Patient not available)1401 (JUN Unhold - Provider: Automatic Transfer Provider) metoprolol (LOPRESSOR) tablet 25 mg 25 mg, oral, Daily, First dose on Mon07/27/17 at 0900 0801 (Not Given - Provider: Lila Arita RN - Reason: Patient/family refused - Comment: pt says she does not take this medicaiton at home) 08 (Not Given - Provider: Lila Arita RN - Reason: Patient/family refused)1114 (JUN Hold - Provider: Automatic Transfer Provider - Reason: Patient not available)1401 (JUN Unhold - Provider: Automatic Transfer Provider) oxybutynin (DITROPAN) tablet 5 mg 5 mg, oral, 2 times daily, First dose on Mon07/27/17 at 0900 0801 (Given - Provider: Lila Arita RN)2021 (Given - Provider: Mary De, NURIS) 0822 (Given - Provider: Lila Arita RN)1114 ([facility] Hold - Provider: Automatic Transfer Provider - Reason: Patient not available)1401 ([facility] Unhold - Provider: Automatic Transfer Provider) rivaroxaban (XARELTO) tablet 10 mg 10 mg, oral, Daily, First dose on Mon07/27/17 at 1015, Administer doses greater than or equal to 15 mg/day with food; doses of 10 mg/day may be administered without regard to meals., Indications: VTE Prophylaxis 1133 (Given - Provider: Lila Arita RN) 0823 (Not Given - Provider: Lila Arita RN - Reason: Other - Comment: Per Dr Jerez's order)1114 ([facility] Hold - Provider: Automatic Transfer Provider - Reason: Patient not available)1401 ([facility] Unhold - Provider: Automatic Transfer Provider) rOPINIRole (REQUIP) tablet 5 mg (CANCELED) 5 mg, oral, Nightly, First dose on Mon07/26/17 at 2300 0002 (Given - Provider: Margaret Barcenas RN) rOPINIRole (REQUIP) tablet 5 mg 5 mg, oral, Nightly, First dose on Mon07/27/17 at 2100, Pt home med 2021 (Given - Provider: Mary De RN) 1114 ([facility] Hold - Provider: Automatic Transfer Provider - Reason: Patient not available)1401 ([facility] Unhold - Provider: Automatic Transfer Provider) sodium chloride 0.9% flush 0.5-20 mL 0.5-20 mL, intra-catheter, Every 8 hours scheduled, First dose on Mon07/27/17 at 2200, Flush volume based on line type and size. , Indications: Flushing 2254 (Given - Provider: Mary De RN) 0654 (Given - Provider: Sonali Soto RN)1400 (Due) sodium chloride 0.9% flush 0.5-20 mL 0.5-20 mL, intra-catheter, Every 8 hours scheduled, First dose on Mon07/28/17 at 1445, Pre-Procedure (GI), Flush volume based on line type and size. , Indications: Flushing 1445 (Due) sulfamethoxazole-trimeth oprim (BACTRIM,SEPTRA) 800-160 mg per tablet 80 mg of trimethoprim (CANCELED) 80 mg of trimethoprim, oral, 2 times daily, First dose on Valeri 07/27/17 at 1215, Indications: Urinary Tract/Genitourinary Infection 1210 (Given - Provider: Lila Arita, NURIS) Continuous Medication Order 07/26/2017 07/27/2017 07/28/2017 sodium chloride 0.9% infusion 30 mL/hr, intravenous, Continuous, Starting on Mon07/28/17 at 1445, Pre-Procedure (GI) 1445 (Due) sodium chloride 0.9% infusion 30 mL/hr, intravenous, Continuous, Starting on Mon07/28/17 at 1200 1120 (New Bag - Prov ider: Angeline Martinez, NUIRS)1215 (Anesthesia Volume Adjustment - Provider: Tete Khan CRNA)1307 (Stopped - Provider: Lisandra Pringle RN) PRN Medication Order 07/26/2017 07/27/2017 07/28/2017 diphenhydrAMINE (BENADRYL) tab/cap 25 mg 25 mg, oral, 4 times daily PRN, itching, Starting on Valeri 07/27/17 at 1437 1114 (JUN Hold - Provider: Automatic Transfer Provider - Reason: Patient not available)1401 (JUN Unhold - Provider: Automatic Transfer Provider) HYDROcodone-acetaminophen (NORCO) 5-325 mg per tablet 1 tablet 1 tablet, oral, 4 times daily PRN, 2nd line for pain, Starting on Valeri 07/27/17 at 0509, Indications: Pain 0759 (Given - Provider: Lila Arita, NURIS)1719 (Given - Provider: Lila Arita, NURIS) 1114 (JUN Hold - Provider: Automatic Transfer Provider - Reason: Patient not available)1401 (JUN Unhold - Provider: Automatic Transfer Provider) ioversol (OPTIRAY 350) syringe syringe 100 mL (COMPLETED) 100 mL, intravenous, Once in imaging, contrast, Starting on Vaelri 07/27/17 at 0101, For 1 dose 0109 (Given - Provider: Sonali Hobbs, R-RT) ipratropium-albuterol (DUO-NEB) 0.5-2.5 mg/3 mL nebulizer solution 3 mL 3 mL, nebulization, Every 4 hours PRN (incident response lead), wheezing, shortness of breath, Starting on Valeri 07/27/17 at 1357, Indications: Chronic Obstructive Pulmonary Disease with Bronchospasms 1114 ([facility] Hold - Provider: Automatic Transfer Provider - Reason: Patient not available)1401 ([facility] Unhold - Provider: Automatic Transfer Provider) lidocaine (XYLOCAINE) 10 mg/mL (1 %) injection 2-10 mg 2-10 mg (0.2-1 mL), other, Once as needed, pain with IV placement, Starting on Mon07/28/17 at 1402, For 1 dose, Pre-Procedure (GI), Administer volume needed to infiltrate IV site., Indications: Administration of Local Anesthesia sodium chloride 0.9% flush 0.5-20 mL 0.5-20 mL, intra-catheter, As needed, line care, Starting on Valeri 07/27/17 at 1748, Flush volume based on line type and size. Flush before and after each use. , Indications: Flushing sodium chloride 0.9% flush 0.5-20 mL 0.5-20 mL, intra-catheter, As needed, line care, Starting on Mon07/28/17 at 1402, Pre-Procedure (GI), Flush volume based on line type and size. Flush before and after each use. , Indications: Flushing traMADol (ULTRAM) tablet 50 mg 50 mg, oral, 4 times daily PRN, 1st line for pain, Starting on Valeri 07/27/17 at 0509 1114 ([facility] Hold - Provider: Automatic Transfer Provider - Reason: Patient not available)1401 ([facility] Unhold - Provider: Automatic Transfer Provider) documented in this encounter Orders Medications Ordered That Tyler ht Not Have Been Administered Count Last Ordered Date First Ordered Date lidocaine (XYLOCAINE) 10 mg/ mL (1 %) injection 2-10 mg 1 07/28/2017 sodium chloride 0.9% flush 0.5-20 mL 4 0 09/201707/27/2017 sodium chloride 0.9% infusion 1 07/28/2017 aspirin enteric coated tablet 81 mg 1 07/27 diphenhydrAMINE (BENADRYL) tab/cap 25 mg 1 07/27/2017 gabapentin (NEURONTIN) capsule 300 mg 1 08/2017 ipratropium-albuterol (DUO-N EB) 0.5-2.5 mg/3 mL nebulizer solution 3 mL 1 07/27/2017 methIMAzole (TAPAZOLE) tablet 5 mg 1 2017 metoprolol (LOPRESSOR) tablet 25 mg 1 07/27 traMADol (ULTRAM) tablet 50 mg 1 07/27/2017 albuterol (PROVENTIL,VENTOLI N) 2.5 mg/0.5 mL nebulizer solution 2.5 mg 1 07/26/2017 ipratropium (ATROVENT) 0.02 % nebulizer solution 0.5 mg 1 07/26/2017 Nursing Count Last Ordered Date First Orde red Date FOLLOW UP WITH PROVIDER 1 07/28/2017 CARDIORESPIRATORY MONITOR 1 07/26/2017 Consult Count Last Ordered Date First Orde red Date IP CONSULT TO GASTROENTEROLOGY 1 07/27/2017 IP CONSULT TO NUTRITION SERVICES 1 07/28/19 18 Admission Count Last Ordered Date First Orde red Date ASSIGN PATIENT STATUS 2 07/28/20172017 Discharge Count Last Ordered Date First Orde red Date DISCHARGE PATIENT 1 07/28/2017 CORE MEASURES Count Last Ordered Date First Ord ered Date REASON FOR NO VTE PROPHYLAXIS AT ADMISSION 1 07/27/2017 Case Request Count Last Ordered Date First Orde red Date CASE REQUEST GI 1 07/27/2017 ADT Patient Update Count Last Ordered Date Firs t Ordered Date ED IP DECISION TO ADMIT 1 07/27/2017 documented in this encounter Care Teams Post 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
--- OUTSIDE RECORDS SUMMARY | 2024-04-26 04:29 | XMS_ITS | Encounter Summary ---
Author Organization [facility] Healthcare Address [address] [place] [address] Care Team Providers Care Club Attendant Name Role Phone Lavonne Hathaway MD Primary Care Provider [phone]- [phone] Encounter Details Date Type Department Care Team (Latest Contact Info) Description 05/11/2017 2:51 PM BETTING AGENCY MANAGER - 05/16/2017 11:59 PM [facility] Hospital Encounter [facility] OP INTERIM [phone] Khris Arthur MD [address] [facility] [address] [place] [address] Discharge Disposition: Discharge to home or self care Social History Tobacco Use Types Packs/Day Years Used Date Smoking Tobacco: Former Alcohol Use Standard Drinks/Week Comments No 0 (1 standard drink = 0.6 oz pur e alcohol) Comments Unknown Sex and Gender Information Value Date Recorded Sex Assigned at Not on file Legal Sex Female 12:24 AM BETTING AGENCY MANAGER Gender Identity Not on file Sexual [...] a day. 90 capsule 1 02/24/2017 07/27/2017 HYDROcodone-aceta minophen (NORCO) 5-325 mg per tabletIndications [...] Associated Diagnosis Comments CBC WITH AUTO DIFFERENTIAL Routine Gen Lab 05/16/2017 2:19 PM BETTING AGENCY MANAGER COMPREHENSIVE METABOLIC PANEL STAT 05/16/2017 2:19 PM BETTING AGENCY MANAGER DISCHARGE LABORATORY CUMULATIVE REPORT 05/11/2017 12:00 AM BETTING AGENCY MANAGER documented in this encounter Results * (ABNORMAL) CBC with auto differential (05/16/2017 2:19 PM BETTING AGENCY MANAGER) [facility] WBC 9.2 3.8 - 9.8 K/cumm [facility] RBC 4.49 3.90 - 5.00 M/cumm [facility] Hgb 12.4 12.1 - 15.1 g/dL [facility] Hct 38.6 36.1 - 44.3 % [facility] Mean Cellular Volume - CAM 85.9 80.0 - 97.6 fL [facility] Mean Cellular Hemoglobin - CAM 27.7 26.7 - 33.7 pg [facility] Mean Cellular Hemoglobin Concentration - CAM 32.3(L) 32.7 - 35.5 g/dL [facility] Rdw 14.5 11.8 - 14.6 % [facility] Plt 358 140 - 440 K/cumm [facility] Mean Platelet Volume - CAM 7.6 6.8 - 10.4 fL [facility] Neutrophil pct 64.5 38.7 - 74.5 % [facility] Lymphocyte pct 23.8 20.0 - 54.3 % [facility] Monos 8.6 4.3 - 13.5 % [facility] Eosinophil pct 2.6 0.0 - 6.0 % [facility] Basophil pct 0.5 0.0 - 3.0 % [facility] Neutrophil abs 5.9 1.8 - 6.6 K/cumm [facility] Lymphocyte abs 2.2 1.2 - 3.3 K/cumm [facility] Monocyte abs 0.8 0.2 - 1.2 K/cumm [facility] Eosinophils, abs 0.2 0.0 - 0.5 K/cumm [facility] Basophil abs 0.1 0.0 - 0.2 K/cumm [facility] NRBC 0.1 0.0 - 0.2 % [facility] NRBC abs 0.01 0.00 - 0.01 K/cumm [facility] Blood specimen (specimen) 05/16/2017 2:19 PM BETTING AGENCY MANAGER 05/16/2017 2:22 PM BETTING AGENCY MANAGER Narrative [facility] - 05/16/2017 2:27 PM BETTING AGENCY MANAGER us Khris Arthur MD LAB BLOOD ORDERABLES Final Result [facility] Department [place] [address] * (ABNORMAL) Comprehensive metabolic panel (05/16/2017 2:19 PM BETTING AGENCY MANAGER) Sodium 137 135 - 145 mmol/L [facility] Potassium, pl 4.7 3.3 - 4.9 mmol/L [facility] CO2 27 22 - 32 mmol/L [facility] BUN 16 8 - 25 mg/dL [facility] Glucose 126 70 - 199 mg/dL [facility] Comment: Interpretive Data Fasting glucose >/= [...] interpretive data was last revised 2017. Creatinine 0.95 0.60 - 1.10 mg/dL [facility] Calcium 9.6 8.5 - 10.3 mg/dL [facility] Chloride 102 97 - 110 mmol/L [facility] Albumin 3.9 3.5 - 5.0 g/dL [facility] AST 25 10 - 45 Units/L [facility] ALT 20 7 - 45 Units/L [facility] Alk phos 74 40 - 130 Units/L [facility] Bilirubin, total 0.3 0.1 - 1.2 mg/dL [facility] Protein, pl 9.1(H) 6.5 - 8.5 g/dL [facility] Anion gap 8 2 - 15 mmol/L [facility] Blood specimen (specimen) 05/16/2017 2:19 PM BETTING AGENCY MANAGER 05/16/2017 2:34 PM BETTING AGENCY MANAGER Narrative [facility] - 05/16/2017 2:56 PM BETTING AGENCY MANAGER us Khris Arthur MD LAB BLOOD ORDERABLES Final Result [facility] Department [place] [address] * DISCHARGE LABORATORY CUMULATIVE REPORT (05/11/2017 12:00 AM BETTING AGENCY MANAGER) Narrative 05/11/2017 12:00 AM BETTING AGENCY MANAGER Ordered by an unspecified provider. us Historical Provider LAB BLOOD ORDERABLES Deann l Result documented in this encounter Visit Diagnoses Not on filedocumented in this encounter Care Teams Club Attendant Relationship Specialty Start Date End Date Lavonne Hathaway MD [address] [place] [address] [place] [address] PCP - General 08/16/16 08/17/17 documented as of this encounter
--- OUTSIDE RECORDS SUMMARY | 2024-04-26 04:29 | XMS_ITS | Encounter Summary ---
Author Organization [facility] Healthcare Address [address] [place] [address] Care Team Providers Care Weight Loss Sales Consultant Name Role Phone Lavonne Hathaway MD Primary Care Provider [phone]- [phone] Encounter Details Date Type Department Care Team (Latest Contact Info) Description 07/03/2017 1:09 PM CDT - 07/03/2017 5:20 PM CDT Hospital Encounter [facility] OP INTERIM [phone] Javy Diehl MD PhD [address] [facility] [address] [place], [place] [id number] Discharge Disposition: Discharge to home or self care Social History Tobacco Use Types Packs/Day Years Used Date Smoking Tobacco: Former Alcohol Use Standard Drinks/Week Comments No 0 (1 standard drink = 0.6 oz pur e alcohol) Comments Unknown Sex and Gender Information Value Date Recorded Sex Assigned at Not on file Legal Sex Female 12:24 AM 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 Fasting Glucose reference ranges are: 0 - 150 years: ??70 mg/dL - 99 mg/dL Current interpretive data was last revised on 2014. Blood specimen (specimen) 07/03/2017 4:24 PM CDT 07/03/2017 4:24 PM CDT Narrative MARY JANE SERRANO - 07/03/2017 4:28 PM CDT Javy Diehl MD PhD POINT OF CARE TEST ORDERA BLES Final Result [facility] [id number] [facility] [place] [address] * Glucose POC (07/03/2017 2:38 PM CDT) Glucose, POC 116 70 - 199 mg/dL MARY JANE SERRANO Comment: Interpretive Data Glucose is assumed to be non-fasting. Fasting Glucose reference ranges are: 0 - 150 years: ??70 mg/dL - 99 mg/dL Current interpretive data was last revised on 2014. Blood specimen (specimen) 07/03/2017 2:38 PM CDT 07/03/2017 2:38 PM CDT Narrative MARY JANE SERRANO - 07/03/2017 3:33 PM CDT Javy Diehl MD PhD POINT OF CARE TEST ORDERA BLES Final Result [facility]ANE [facility] [id number] [facility] [place] [address] * DISCHARGE LABORATORY CUMULATIVE REPORT (07/03/2017 12:00 AM CDT) Narrative 07/03/2017 12:00 AM CDT Ordered by an unspecified provider. Historical Provider LAB BLOOD ORDERABLES Deann l Result * COLONOSCOPY REPORT (07/03/2017) Anatomical Region Laterality Modality Other Provider Scanning GI PROCEDURE ORDERABLES Edited Result - Final documented in this encounter Visit Diagnoses Not on filedocumented in this encounter Care Teams Weight Loss Sales Consultant Relationship Specialty Start Date End Date Lavonne Hathaway MD [address] [place] [address] [place] [address] PCP - General 08/16/16 08/17/17 documented as of this encounter
--- OUTSIDE RECORDS SUMMARY | 2024-04-26 04:29 | XMS_ITS | Encounter Summary ---
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 - 06/30/2017 11:59 PM [facility] Hospital Encounter [facility] OP INTERIM [phone] Javy Diehl MD PhD [address] [facility] [address] [place], [place] [id number] Discharge Disposition: Discharge to home or self care Social History Tobacco Use Types Packs/Day Years Used Date Smoking Tobacco: Former Alcohol Use Standard Drinks/Week Comments No 0 (1 standard drink = 0.6 oz pur e alcohol) Comments Unknown Sex and Gender Information Value Date Recorded Sex Assigned at Not on file Legal Sex Female 12:24 AM 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 CLOSER Gender Identity Not on file Sexual Orientation Not on file documented as of this encounter Last Filed Vital Signs Vital Sign Reading Time Taken Comments Blood Pressure - - Pulse - - Temperature - - Respiratory Rate - - Oxygen Saturation - - Inhaled Oxygen Concentration - - Weight - - Height 154.9 cm (5' 1 ) 11/25/2015 1:00 AM CDT Body Mass Index - - documented [...] on filedocumented in this encounter Care Teams Real Estate Instructor Relationship Specialty Start Date End Date Lavonne Hathaway MD [facility] [place] [address] PCP - General 08/16/16 08/17/17 documented as of this encounter
--- OUTSIDE RECORDS SUMMARY | 2024-04-26 04:29 | XMS_ITS | Encounter Summary ---
Author Organization [facility] Healthcare Address [address] [place] [address] Care Team Providers Care Silo Erector Name Role Phone Lavonne Hathaway MD Primary Care Provider [phone]- [phone] Liu Jerez MD Unavailable Reason for Visit * Reason Comments Shortness of Breath worsens with exertio n, also fatigue Encounter Details Date Type Department Care Team (Latest Contact Info) Description 07/28/2017 12:00 PM CDT - 07/28/2017 12:[address] [facility] GI Lab [address] [place] [address] [place] [id number] [place] [address] ESOPHAGOGASTRODUODENOSCOPY BIOPSY Surgery Details Date/Time Status Location OR Service Patient Class Case Class Case Type Trauma Case? 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 Gender Identity Not on file Sexual Orientation Not on file documented as of this encounter Last Filed Vital Signs Vital Sign Reading Time Taken Comments Blood Pressure 96/51 07/28/2017 12:20 PM CDT Pulse 84 07/28/2017 12:20 PM CDT Temperature 36.1 ??C (97 ??F) 07/28/2017 11:16 AM CDT Respiratory Rate 27 07/28/2017 12:20 PM CDT Oxygen Saturation 97% 07/28/2017 12:20 PM CDT Inhaled Oxygen Concentration - - [...] Care Physician at Discharge: Lavonne Hathaway MD [phone] Admission Date: 07/26/2017 Discharge Date: 07/28/2017 Primary [...] Order Current Status Surgical pathology Collected (07/28/17 1214) Blood culture Blood Preliminary result Operative Procedures [...] nephrolithiasis. A preliminary report was submitted by [facility] on 07/27/2017 at 2:09 AM. Electronically signed by: Prince House M.D. No results found for this [...] Follow-Up: [place] [address] [facility] [address] patietn may benefit from gastric emptying study. [...] O2 sat: 95% PAIN: Pre-therapy pain level: 08/01 Pain location: legs Pain intervention: repositioned Post-therapy [...] Type of Weight Used forEstimated Protein : [place]. ?? Total Fluid Estimated Needs: 1869 Fluid [...] (CMS/HCC) breast ??? CHF (congestive heart failure) ([facility]/HCC) ??? Depression Depression ??? Diabetes (CMS/HCC) ??? Disorder of thyroid Thyroid disease ??? DVT (deep venous thrombosis) ([facility]) ??? HX OTHER MEDICAL restless leg syndrome ??? HX OTHER MEDICAL RLS ??? Hypertension Hypertension ??? Osteoarthritis osteoarthritis ??? PE (pulmonary thromboembolism) ([facility]) Medications and Lab Review: Scheduled Meds: aspirin [...] 07/27/2017 PRIMARY CARE PHYSICIAN: Lavonne Hathaway MD [phone] Subjective Patient is a 62 y.o. female [...] Duration 112 ms QRS-Interval (MSEC) 84 ms FL-Interval (MSEC) 131 ms QT Interval 337 ms QTc 394 ms QTC Interval ms P [place] 47 deg QRS [place] 23 deg T [place] 61 deg B-type natriuretic peptide Collection Time: [...] No mediastinal widening Electronically signed by: Brando Jorge-Joseph, M.D. Ct Chest Pe W Contrast Result [...] nephrolithiasis. A preliminary report was submitted by [facility] on 07/27/2017 at 2:09 AM. Electronically signed [...] - 07/28/2017 12:07 PM CDTAssociated Order(s): EGD [facility] Endoscopy Lab Patient Name: Mohsen Marques Procedure Date: 07/28/2017 12:07 PM Date of : 1955 Admit Type: Inpatient Age: 62 Gender: Female Note Status: Finalized Attending MD: Liu Jerez MD Procedure Date: 07/28/2017 Procedure: Upper GI endoscopy Indications: Epigastric abdominal pain Providers: Liu Jerez MD, Tete Khan CRNA (Anesthesia Staff), Felicitas Pryor RN Referring MD: Medicines: Monitored Anesthesia Care Complications: No immediate complications. Estimated Blood Loss: Estimated blood loss was minimal. Procedure: After obtaining informed consent, the endoscope was passed under direct vision. Throughout the procedure, the patient's blood pressure, pulse, and oxygen saturations were monitored continuously. The scope was passed under direct vision. The Endoscope [id number] was introduced through the mouth, and advanced [...] antireflux regimen. Procedure Code(s): --- Professional --- 25035, Esophagogastroduodenoscopy, flexible, transoral; with biopsy, single or multiple Diagnosis Code(s): --- Professional --- K31.9, Disease of stomach and duodenum, unspecified R10.13, Epigastric pain CPT copyright 2014 [employer]. All rights reserved. The codes documented in this report are preliminary and upon pipe recovery specialist review may be revised to meet current [...] LABS Lab Results Component Value Date ALT 17 07/26/2017 AST 19 07/26/2017 ALKPHOS 68 07/26/2017 BILITOT 0.50 07/26/2017 [...] July 03, 2017 that was performed at [facility] was reviewedand showed normal terminal ileum and [...] are negative. Physical Exam ED Triage Vitals [07/26/171912] Temp Pulse Resp BP SpO2 36.6 ??C [...] nephrolithiasis. A preliminary report was submitted by [facility] on 07/27/2017 at 2:09 AM. Electronically signed by: Prince House M.D. XR Chest 1 View ED Interpretation [...] M.D. ED Course as of Jul 27 2122 Wed Jul 26, [id number] I, LOREN BONNER, have personally [...] Foreign Body, COPD Exacerbation, Pulmonary Embolism, Asthma, CA / Unstable Angina, SARS, Other: CHF / [...] Duration 112 ms QRS-Interval (MSEC) 84 ms FL-Interval (MSEC) 131 ms QT Interval 337 ms QTc 394 ms QTC Interval ms P [place] 47 deg QRS [place] 23 deg T [place] 61 deg B-type natriuretic peptide Collection Time: [...] PATHOLOGY CH - 07/29/2017 11:[address] [facility] Department of Pathology [address] [place] [address] Final Report ?Patient Name: MOHSEN MARQUES Address: [address] [place] [address] Service: Medical ??[place], [place] ??[facility] Location: [facility] E Taken: 07/28/2017 Gender: F Received 07/28/2017 : 1955 (Age: 62) Hospital #: [id number] Accessioned: 07/28/2017 ?? Patient Type: OBS Reported [...] Description: All parts are received labeled Mohsen MonteroTye Marques . A. ??The container is labeled duodenum [...] determined by the Surgical Pathology Department at [facility] as part of an ongoing housing quality standard inspector program and in compliance with federally mandated [...] characteristics determined by the Surgical Pathology Department [facility]. ??It has not been cleared or approved by the U. S. Food and Drug Administration. Liu Jerez MD LAB PATHOLOGY ORDERABLE S Final Result PATHOLOGY [facility] [place] [address] * EGD (07/28/2017 12:07 PM CDT) Anatomical Region Laterality Modality Other Narrative Procedure Note Liu Jerez MD - 07/28/2017 12:07 PM CDT [facility] Endoscopy Lab Patient Name: Mohsen Marques Procedure [...] passed under direct vision. The Endoscope [id number] was introduced through the mouth, andadvanced to [...] antireflux regimen. Procedure Code(s): --- Professional --- 37469, Esophagogastroduodenoscopy, flexible,transoral; with biopsy, single or multiple Diagnosis Code(s): --- Professional --- K31.9, Disease of stomach and duodenum,unspecified R10.13, Epigastric pain CPT copyright 2014 [employer]. All rights reserved. The codes documented in this report are preliminary and upon pipe recovery specialist reviewmay be revised to meet current compliance requirements. Electronically signed by Olayiwola Olagbegi, M.D. Liu Jerez MD 07/28/2017 12:25:44 PM [...] AM CDT Ordered by an unspecified provider. [facility] Provider LAB BLOOD ORDERABLES Deann l Result [...] ORDERABLES Final Resu lt Performing Organization Address [facility] de Phone Number MARY JANE ARNOLD [address] Department of momondo [place], [place] [id number] * (ABNORMAL) Urinalysis reflex to microscopic (07/27/2017 [...] ORDERABLES Final Resu lt Performing Organization Address [facility] de Phone Number MARY JANE ARNOLD [address] Department of [place], [place] [id number] * (ABNORMAL) Blood culture Blood (07/27/2017 2:58 AM CDT) Direct Specimen Exam Rapid Molecular Analysis: Coagulase negative Staphylococcus species detected by the Verig[facility] Blood Culture Nucleic Acid Test. ??This test does not exclude the possibility of a mixed bacterial infection. Notification of: Coagulase negative Staphylococcus species called to and read back by: Lesia Sanzarnold LAWLER [phone] on 07/31/2017 06:12:00 by: Jesús HINTON Comment:Testing performed by : [facility], [address] [place] [address]., [id number] Direct Specimen Exam Stain: Gram Positive Cocci in clusters * ??* ??* ??* ??* ??* ??* ??* ??* ??* ??* ??* ??* ??* ??* ??* ??* ??* ??* ??* Notification of: Gram Positive Cocci in clusters called to and read back by: Lesia WatsonNURIS, on 07/30/2017 19:51:48 by: Noe HINTON Comment:Testing performed by : [facility], [address] [place] [address]., [id number] Report Final Report: Coagulase negative Staphylococcus species Isolate of questionable significance. ??If a similar isolate is recovered from a second blood culture collected within 3 days of this culture, both will be evaluated and, if determined to be related, antimicrobial susceptibility testing will be performed. (.) MARY JANE Comment:Testing performed by : [facility], [address] [place] [address]., [id number] Organism COAGULASE NEGATIVE STAPHYLOCOCCUS SPECIES MARY JANE Blood specimen (specimen) (Antecubital, right) 07/27/2017 2:58 AM CDT 07/27/2017 7:53 AM CDT [facility] MARY JANE - 08/02/2017 4:31 PM CDT Blood cultures [...] organism identification may be performed using the [employer] Nanosphere Gram Positive Blood Culture Assay. ??The Nanosphere assay detects microbial DNA in positive blood culture broth via hybridization of target DNA to capture oligonucleotides on a microarray. ??This assay has been cleared by the [place] Food and Drug Administration and its performance characteristics have been verified by the [facility] Microbiology Laboratory. Current Interpretive Data was last revised on 2013. Sandeep Marie MD LAB MICROBIOLOGY - GENE RAL ORDERABLES Final Result MARY JANE ARNOLD [address] Department [place] [address] * CT Chest PE W Contrast (07/27/2017 1:07 AM CDT) Anatomical Region Laterality Modality Body N/A Computed Tomogra phy Impressions 07/27/2017 8:23 AM CDT No evidence of acute pulmonary emboli. Heterogeneous thyroid. ??Recommend dedicated thyroid ultrasound. Right nephrolithiasis. A preliminary report was submitted by [facility] on 07/27/2017 at 2:09 AM. Electronically signed [...] nephrolithiasis. A preliminary report was submitted by [facility] on 07/27/2017 at 2:09 AM. Electronically signed by: Prince House M.D. Sandeep Marie MD IM CT PROCEDURES Final Result * eGFR (07/26/2017 11:53 PM CDT) eGFR 80 mL/min/1.7 3 m2 [facility] Comment: Interpretive Data Reference Interval Normal ?>/= 90 mL/min/1.73m2 Mildly decreased* ? 60 - 89 mL/min/1.73m2 Mildly to moderately decreased ?45 - 59 mL/min/1.73m2 Moderately to severely decreased ??30 - 44 mL/min/1.73m2 Severely decreased ?15 - 29 mL/min/1.73m2 Kidney Failure ?< 15 ??mL/min/1.73m2 *Relative to young adult level If -[place] multiply value by 1.16. Estimated glomerular filtration [...] PM CDT 07/27/2017 12:01 AM CDT Narrative [facility] - 07/27/2017 12:24 AM CDT us Sandepe Marie MD LAB BLOOD ORDERABLES Fi nal Result [facility] [address] Department [place] [address] * (ABNORMAL) Comprehensive metabolic panel (07/26/2017 11:53 PM CDT) [facility] Sodium 132(L) 135 - 145 mmol/L [facility] Potassium, pl 3.9 3.5 - 5.1 mmol/L [facility] CO2 25 22 - 32 mmol/L [facility] BUN 20 8 - 24 mg/dL [facility] Glucose 191 70 - 199 mg/dL [facility] Comment: Interpretive Data Fasting glucose [...] 2017. Creatinine 0.80 0.60 - 1.30 mg/dL [facility] Calcium 9.3 8.4 - 10.5 mg/dL [facility] Chloride 101 100 - 114 mmol/L [facility] Albumin 3.3 3.2 - 4.8 g/dL [facility] AST 19 7 - 40 Units/L [facility] ALT 17 1 - 45 Units/L [facility] Alk phos 68 30 - 110 Units/L [facility] Bilirubin, total 0.50 0.10 - 1.30 mg/dL [facility] Protein, pl 7.9 6.0 - 8.3 g/dL [facility] Anion gap 10 8 - 16 mmol/L [facility] Blood specimen (specimen) 07/26/2017 11:53 PM CDT 07/26/2017 11:59 PM CDT Narrative [facility] - 07/27/2017 12:24 AM CDT us Sandeep Marie MD LAB BLOOD ORDERABLES Fi nal Result [facility] [address] Department [place] [address] * Troponin I (07/26/2017 11:53 PM CDT) Troponin I 0.03 0.00 - 0.14 ng/mL [facility] Comment: Interpretive Data Normal: ? 0.00 - 0.14 ng/mL Indeterminate: ?0.15 - 0.50 ng/mL CA / Cardiac Muscle Damage: ? >0.50 ng/mL Current interpretive data was last reviewed 2015 Blood specimen (specimen) 07/26/2017 11:53 PM CDT 07/27/2017 Narrative MARY JANE ARNOLD - 07/27/2017 12:24 AM CDT Loren Bonner MD LAB BLOOD ORDERABLES Final Resu lt MARY JANE [address] Department [place] [address] * XR Chest 1 View (07/26/2017 9:05 [...] PM CDT Narrative MARY JANE - 07/26/2017 9:11 PM CDT Loren Bonner MD LAB BLOOD ORDERABLES Final Resu lt Performing Organization Address City/[facility] Co de Phone Number MARY JANE ARNOLD [address] [facility] [place] [address] * (ABNORMAL) Protime-INR (07/26/2017 9:00 PM CDT) PT 14.4(H) 9.5 - 13.0 sec [facility] INR 1.27(H) 0.90 - 1.20 [facility] Blood specimen (specimen) 07/26/2017 9:00 PM CDT 07/26/2017 9:01 PM CDT Narrative MARY JANE ARNOLD - 07/26/2017 9:19 PM CDT Loren Bonner MD LAB BLOOD ORDERABLES Final Resu lt Performing Organization Address City/State/[facility] Co de Phone Number MARY JANE ARNOLD [address] [place] [address] * Troponin I (07/26/2017 9:00 PM CDT) [facility] Troponin I <0.03 0.00 - 0.14 ng/mL MARY JANE Comment: Interpretive Data Normal: ? 0.00 - 0.14 ng/mL Indeterminate: ?0.15 - 0.50 ng/mL CA / Cardiac Muscle Damage: ? >0.50 ng/mL Current interpretive data was last reviewed 2015 Blood specimen (specimen) 07/26/2017 9:00 PM CDT 07/26/2017 9:01 PM CDT Narrative MARY JANE - 07/26/2017 9:23 PM CDT Loren Bonner MD LAB BLOOD ORDERABLES Final Resu lt Performing Organization Address [facility] de Phone Number MARY JANE [address] [facility] [place] [address] * D-dimer, quantitative (07/26/2017 9:00 PM CDT) [facility] D-dimer <150 150 - 230 ng/mL D-DU [...] 9:00 PM CDT 07/26/2017 9:01 PM CDT Johnathan HINTON - 07/26/2017 10:00 PM CDT Loren Bonner MD LAB BLOOD ORDERABLES Final Resu lt Performing Organization Address [facility] Co de Phone Number MARY JANE [address] Department [place] [address] * (ABNORMAL) CBC with auto differential (07/26/2017 9:00 PM CDT) Pathologist [facility] WBC 16.51(H) 3.80 - 9.90 K/cumm [facility] RBC 4.59 3.90 - 5.20 M/cumm [facility] Hgb 12.4 11.9 - 15.5 g/dL [facility] Hct 40.2 35.6 - 45.5 % [facility] MCV 87.6 81.3 - 96.4 fL [facility] CH MCH 27.0(L) 27.1 - 33.3 pg [facility] MCHC 30.8(L) 32.3 - 35.7 g/dL [facility] RDW CV 15.0(H) 11.1 - 14.9 % [facility] CH RDW SD 48.1 35.7 - 48.1 fL [facility] CH Plt 372 150 - 400 K/cumm [facility] MPV 9.6 9.1 - 12.3 fL [facility] NRBC abs 0.00 0.00 - 0.01 K/cumm [facility] Blood specimen (specimen) 07/26/2017 9:00 PM CDT 07/26/2017 9:01 PM CDT Narrative MARY JANE - 07/26/2017 9:11 PM CDT Loren Bonner MD LAB BLOOD ORDERABLES Final Resu lt [facility] [address] Department [place] [address] * B-type natriuretic peptide (07/26/2017 9:00 PM CDT) Pathologist [facility] B-Type Natriuretic Peptide (BNP) 27 0 - 100 pg/mL [facility] Blood specimen (specimen) 07/26/2017 9:00 PM CDT 07/26/2017 9:01 PM CDT Narrative MARY JANE - 07/26/2017 9:26 PM CDT Loren Bonner MD LAB BLOOD ORDERABLES Final Resu lt Performing Organization Address City/[facility]/ZIP Co de Phone Number MARY JANE ARNOLD [address] Department [place] [address] * ECG 12 lead (07/26/2017 7:12 PM CDT) Patient age 62 years [facility] Interpretation Text SINUS RHYTHMNORMAL ECGPREVIOUS TRACIN01/30/2017 10.25No significant change compared to prior ECG [facility] Comment:Physician Interprete r Dr. Humberto Armas M.D. Ventricular Rate EKG/Min 93 /min [facility] P Wave Duration 112 ms [facility] QRS-Interval (MSEC) 84 ms [facility] FL-Interval (MSEC) 131 ms [facility] QT Interval 337 ms [facility] QTc 394 ms [facility] QTC Interval ms [facility] P [place] 47 deg [facility] QRS [place] 23 deg [facility] T [place] 61 deg [facility] 07/26/2017 7:12 PM CDT Loren Bonner MD ECG ORDERABLES Final Result Performing Organization Address [facility] de Phone Number [facility] documented in this encounter Visit Diagnoses Diagnosis Generalized weakness- Primary Shortness of breath Essential hypertension Unspecified essential hypertension Nausea and vomiting, intractability of vomiting not specified, unspecified vomiting type Dyspnea Other dyspnea and respiratory abnormality Unintentional weight loss Loss of weight Acute cystitis without hematuria Nausea and vomiting Nausea with vomiting Nausea and vomiting, intractability of vomiting not specified, unspecified vomiting type documented in this encounter Admitting Diagnoses Diagnosis Nausea and vomiting Nausea with vomiting documented in this encounter Administered Medications Inactive Administered Medications - up to 3 most recent administrations Medication Order MAR Action Action Date Dose Rate Site diphenhydrAMINE (BENADRYL) tab/cap 25 mg 25 mg, oral, 4 times daily PRN, itching, Starting on Valeri 07/27/17 at 1437 exemestane (AROMASIN) tablet 25 mg 25 mg, oral, Daily, First dose on Valeri 07/27/17 at 1015 Given 07/28/2017 8:24 AM CDT 25 mg Given 07/27/2017 11:33 AM CDT 25 mg HYDROcodone-acetaminophen (NORCO) 5-325 mg per tablet 1 tablet 1 tablet, oral, 4 times daily PRN, 2nd line for pain, Starting on Mon07/27/17 at 0509, Indications: PainIndications:Pain Given 07/27/2017 5:19 PM CDT 1 tablet Given 07/27/2017 7:59 AM CDT 1 tablet ipratropium-albuterol (DUO-NEB) 0.5-2.5 mg/3 mL nebulizer solution 3 mL 3 mL, nebulization, Every 4 hours 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), wheezing, shortness of breath, Starting on Mon07/27/17 at 1357, Indications: Chronic Obstructive Pulmonary Disease with BronchospasmsIndications:Chronic Obstructive Pulmonary Disease with Bronchospasms lidocaine (XYLOCAINE) 10 mg/mL (1 %) injection 2-10 mg 2-10 mg (0.2-1 mL), other, Once as needed, pain with IV placement, Starting on Mon07/28/17 at 1402, For 1 dose, Pre-Procedure (GI), Administer volume needed to infiltrate IV site., Indications: Administration of Local AnesthesiaIndications:Administration of Local Anesthesia lisinopril (PRINIVIL,ZESTRIL) tablet 20 mg 20 mg, oral, Daily, First dose on Mon07/27/17 at 0900 Given 07/28/2017 8:22 AM CDT 20 mg Given 07/27/2017 8:01 AM CDT 20 mg oxybutynin (DITROPAN) tablet [...] before and after each use. , Indications: FlushingIndications:Flushing sodium chloride 0.9% flush 0.5-20 mL 0.5-20 mL, intra-catheter, Every 8 hours scheduled, First dose on Mon07/28/17 at 1445, Pre-Procedure (GI), Flush volume based on line type and size. , Indications: FlushingIndications:Flushing sodium chloride 0.9% flush 0.5-20 mL 0.5-20 mL, intra-catheter, As needed, line care, Starting on Mon07/28/17 at 1402, Pre-Procedure (GI), Flush volume based on line type and size. Flush before and after each use. , Indications: FlushingIndications:Flushing sodium chloride 0.9% infusion 30 mL/hr, intravenous, Continuous, Starting on Mon07/28/17 at 1445, Pre-Procedure (GI) sodium chloride 0.9% infusion 30 mL/hr, intravenous, Continuous, Starting on Mon07/28/17 at 1200 New Bag 07/28/2017 11:20 AM CDT 30 mL/hr 30 mL/hr documented in this encounter Discontinued Medications [...] Transfer Provider - Reason: Patient not available)1401 (MAR Unhold - Provider: Automatic Transfer Provider) diphenhydrAMINE (BENADRYL) injection 25 mg (COMPLETED) 25 mg, intravenous, Once, On Valeri 07/27/17 at 1515, For 1 dose 1535 (Given - Provider: Lila Arita RN) exemestane (AROMASIN) tablet 25 mg 25 mg, oral, Daily, First dose on Mon07/27/17 at 1015 1133 (Given - Provider: Lila Arita, NURIS) 0824 (Given - Provider: Lila Arita RN)1114 ([facility] Hold - Provider: Automatic Transfer Provider - Reason: Patient not available)1401 ([facility] Unhold - Provider: Automatic Transfer Provider) gabapentin [...] refused - Comment: Pt does not take anymore)2022 (Not Given - Provider: Mary De RN - Reason: Patient/family refused - Comment: pt refused. 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), On Mon07/26/17 at 2100, For 1 dose, Indications: Chronic Obstructive Pulmonary Disease with Bronchospasms 2053 (Given - Provider: Shanthi Ac, LIBRARY TECHNICIAN) levoFLOXacin (LEVAQUIN) 750 mg/150 mL premix IVPB in 5% dextrose 750 mg (COMPLETED) 750 mg, intravenous, at 100 mL/hr, Administer over 90 Minutes, Once, On Mon07/27/17 at 0245, For 1 dose, Indications: Pneumonia, Community Acquired 025 (New Bag - Provider: Margaret Barcenas, NURIS)0629 (Stopped - Provider: Mary De, RN) lisinopril (PRINIVIL,ZESTRIL) tablet 20 mg 20 mg, oral, Daily, First dose on Mon07/27/17 at 0900 0801 (Given - Provider: Lila Arita, NURIS) 08 (Given - Provider: Lila Arita RN)111 (MAR Hold - Provider: Automatic Transfer Provider - Reason: Patient not available)1401 (MAR Unhold - Provider: Automatic Transfer Provider) LORazepam [...] Provider: Lila Arita RN - Reason: Patient/family refused)111 (JUN Hold - Provider: Automatic Transfer Provider [...] De, NURIS) 0822 (Given - Provider: Lila Arita, NURIS)1114 ([facility] Hold - Provider: Automatic Transfer Provider - Reason: Patient not available)1401 ([facility] Unhold - Provider: Automatic Transfer Provider) rivaroxaban (XARELTO) tablet 10 mg 10 mg, oral, Daily, First dose on Valeri 07/27/17 at 1015, Administer doses greater than or equal to 15 mg/day with food; doses of 10 mg/day may be administered without regard to meals., Indications: VTE Prophylaxis 1133 (Given - Provider: Lila Arita RN) 0823 (Not Given - Provider: Lila Arita RN - Reason: Other - Comment: Per Dr Jerez's order)1114 ([facility] Hold - Provider: Automatic Transfer Provider - Reason: Patient not available)1401 ([facility] Unhold - Provider: Automatic Transfer Provider) rOPINIRole (REQUIP) tablet 5 mg (CANCELED) 5 mg, oral, Nightly, First dose on Mon07/26/17 at 2300 0002 (Given - Provider: Margaret Barcenas RN) rOPINIRole (REQUIP) tablet 5 mg 5 mg, oral, Nightly, First dose on Mon07/27/17 at 2100, Pt home med 2021 (Given - Provider: Mary De RN) 1114 ([facility] Hold - Provider: Automatic Transfer Provider - Reason: Patient not available)1401 ([facility] Unhold - Provider: Automatic Transfer [...] (New Bag - Prov ider: Angeline Martinez, NURIS)1215 (Anesthesia Volume Adjustment - Provider: Tete Khan CRNA)1307 (Stopped - Provider: Lisandra Pringle, NURIS) PRN Medication Order 07/26/2017 07/27/2017 07/28/2017 diphenhydrAMINE [...] Once in imaging, contrast, Starting on Valeri 07/27/17 at 0101, For 1 dose 0109 (Given - Provider: Sonali Hobbs, R-RT) ipratropium-albuterol (DUO-NEB) 0.5-2.5 mg/3 mL nebulizer solution 3 mL 3 mL, nebulization, Every 4 hours 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), wheezing, shortness of breath, Starting on Valeri 07/27/17 at 1357, Indications: Chronic Obstructive Pulmonary Disease with Bronchospasms 1114 (JUN Hold - Provider: Automatic Transfer Provider - Reason: Patient not available)1401 ([facility] Unhold - Provider: Automatic Transfer Provider) lidocaine (XYLOCAINE) 10 mg/mL (1 %) injection 2-10 mg 2-10 mg (0.2-1 mL), other, Once as needed, pain with IV placement, Starting on 07/28/17 at 1402, For 1 dose, Pre-Procedure (GI), [...] intra-catheter, As needed, line care, Starting on 07/28/17 at 1402, Pre-Procedure (GI), Flush volume based on line type and size. Flush before and after each use. , Indications: Flushing traMADol (ULTRAM) tablet 50 mg 50 mg, oral, 4 times daily PRN, 1st line for pain, Starting on Valeri 07/27/17 at 0509 1114 ([facility] Hold - Provider: Automatic Transfer Provider - Reason: Patient not available)1401 ([facility] Unhold - Provider: Automatic Transfer Provider) documented in this encounter Orders Medications Ordered That Tyler ht Not Have Been Administered Count Last Ordered Date First Ordered Date lidocaine (XYLOCAINE) 10 mg/ mL (1 %) injection 2-10 mg 1 07/28/2017 sodium chloride 0.9% flush 0.5-20 mL 5 04/0 09/201707/27/2017 sodium chloride 0.9% infusion 2 07/28/2017 aspirin enteric coated tablet 81 mg 1 07/27 diphenhydrAMINE (BENADRYL) injection 25 mg 1 07/27/2017 diphenhydrAMINE (BENADRYL) tab/cap 25 mg 1 07/27/2017 exemestane (AROMASIN) tablet 25 mg 1 2017 gabapentin (NEURONTIN) capsule 300 mg 1 08/2017 HYDROcodone-acetaminophen (N ORCO) 5-325 mg per tablet 1 tablet 1 07/27/2017 ioversol (OPTIRAY 350) syrin ge syringe 100 mL 1 07/27/2017 ipratropium-albuterol (DUO-N EB) 0.5-2.5 mg/3 mL nebulizer solution 3 mL 2 07/27/2017 07/27/19 18 levoFLOXacin (LEVAQUIN) 750 mg/150 mL premix IVPB in 5% dextrose 750 mg 1 07/27/2017 lisinopril (PRINIVIL,ZESTRIL) tablet 20 mg 1 07/27/2017 methIMAzole (TAPAZOLE) tablet 5 mg 1 2017 metoprolol (LOPRESSOR) tablet 25 mg 1 07/27 oxybutynin (DITROPAN) tablet 5 mg 1 018 rivaroxaban (XARELTO) tablet 10 mg 1 2017 rOPINIRole (REQUIP) tablet 5 mg 2 8 07/26/2017 sulfamethoxazole-trimethopri m (BACTRIM,SEPTRA) 800-160 mg per tablet 80 mg of trimethoprim 1 07/27/2017 traMADol (ULTRAM) tablet 50 mg 1 07/27/2017 albuterol (PROVENTIL,VENTOLI N) 2.5 mg/0.5 mL nebulizer solution 2.5 mg 1 07/26/2017 ipratropium (ATROVENT) 0.02 % nebulizer solution 0.5 mg 1 07/26/2017 LORazepam (ATIVAN) tablet 1 mg 1 07/26/2017 Nursing Count Last Ordered [...] 07/27/2017 documented in this encounter Care Teams Silo Erector Relationship Specialty Start Date End Date Lavonne Hathaway MD [facility] [place] [address] PCP - General 08/16/16 08/17/17 Liu Jerez MD [address] [place] [address] [place] [address] Consulting Physician Gastroenterology 07/28/17 documented as of this encounter
--- OUTSIDE RECORDS SUMMARY | 2024-04-26 04:30 | XMS_ITS | Encounter Summary ---
Author Organization [facility] Healthcare Address [address] [place] [address] Care Team Providers Care Director Of Patient Financial Services Name Role Phone Lavonne Hathaway MD Primary Care Provider +1- [phone] Encounter Details Date Type Department Care Team (Late st Contact Info) Description 09/11/2016 Orders Only Cerner Lab Interim [phone] [place] [address] [facility] [address] [place] [address] Social History Tobacco Use Types Packs/Day Years Used Date Smoking Tobacco: Former Alcohol Use Standard Drinks/Week Comments No 0 (1 standard drink = 0.6 oz pur e alcohol) Comments Unknown Sex and Gender Information Value Date Recorded Sex Assigned at Not on file 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 0.00 - 0.14 ng/mL Indeterminate: ?0.15 - 0.50 ng/mL [place] / Cardiac Muscle Damage: ? >0.50 ng/mL Current interpretive data was last reviewed 2015 Blood specimen (specimen) 09/11/2016 3:20 PM CDT 09/11/2016 3:38 PM CDT us Rosio Horton MD LAB BLOOD ORDERABLES Final Re sult [id number] [address] Department [place] [address] documented in this encounter Visit Diagnoses Not on filedocumented in this encounter Care Teams Director Of Patient Financial Services Relationship Specialty Start Date End Date Lavonne Hathaway MD [facility] [place] [address] PCP - General 08/16/16 08/17/17 documented as of this encounter
--- OUTSIDE RECORDS SUMMARY | 2024-04-26 04:30 | XMS_ITS | Encounter Summary ---
Author Organization [facility] Healthcare Address [address] [place] [address] Care Team Providers Care Behavioral Health Aide Name Role Phone Lavonne Hathaway MD Primary Care Provider +1- [phone] Encounter Details Date Type Department Care Team (Late st Contact Info) Description 09/13/2016 Orders Only Cerner Lab Interim [phone] [place] [address] [id number] Social History Tobacco Use Types Packs/Day Years Used Date Smoking Tobacco: Former Alcohol Use Standard Drinks/Week Comments No 0 (1 standard drink = 0.6 oz pur e alcohol) Comments Unknown Sex and Gender Information Value Date Recorded Sex Assigned at Not on file 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 Gender Identity Not on file Sexual Orientation Not on file documented as of this encounter Plan of Treatment Not on file documented as of this encounter Procedures Procedure Name Priority Date/Time Associated Diagnosis Comments GLUCOSE POC Routine 09/13/2016 11:50 AM CDT documented in this encounter Results * (ABNORMAL) Glucose POC (09/13/2016 11:50 AM CDT) Glucose, POC 223(H) 70 - 199 mg/dL MARY JANE ARNOLD Blood specimen (specimen) 09/13/2016 11:50 AM CDT 09/13/2016 11:50 AM CDT us Leoncio Hawkins MD POINT OF CARE TEST ORDERABLES F inal Result MARY JANE ARNOLD [address] [address] Department [place] [address] documented in this encounter Visit Diagnoses Not on filedocumented in this encounter Care Teams Behavioral Health Aide Relationship Specialty Start Date End Date Lavonne Hathaway MD [facility] [place] [address] PCP - General 08/16/16 08/17/17 documented as of this encounter
--- OUTSIDE RECORDS SUMMARY | 2024-04-26 04:30 | XMS_ITS | Encounter Summary ---
Author Organization [facility] Healthcare Address [address] [place] [address] Care Team Providers Care Finish Inspector Name Role Phone Lavonne Hathaway MD Primary Care Provider +1- [phone] Encounter Details Date Type Department Care Team (Latest Contact Info) Description 01/06/2017 4:08 PM CDT - 01/06/2017 11:59 PM CDT Hospital Encounter [facility] [address] [address] Discharge Disposition: Discharge to home or self care Social History Tobacco Use Types Packs/Day Years Used Date Smoking Tobacco: Former Alcohol Use Standard Drinks/Week Comments No 0 (1 standard drink = 0.6 oz pur e alcohol) Comments Unknown Sex and Gender Information Value Date Recorded Sex Assigned at Not on file 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
--- OUTSIDE RECORDS SUMMARY | 2024-04-26 04:30 | XMS_ITS | Encounter Summary ---
Author Organization [facility] Healthcare Address [address] [place] [address] Care Team Providers Care Utility Helicopter Repairer Name Role Phone Lavonne Hathaway MD Primary Care Provider +1- [phone] Encounter Details Date Type Department Care Team (Late st Contact Info) Description 09/11/2016 Orders Only Cerner Lab Interim [phone] [place] [address] [facility] [address] [place] [address] Social History Tobacco Use Types Packs/Day Years Used Date Smoking Tobacco: Former Alcohol Use Standard Drinks/Week Comments No 0 (1 standard drink = 0.6 oz pur e alcohol) Comments Unknown Sex and Gender Information Value Date Recorded Sex Assigned at Not on file 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 0.00 - 0.14 ng/mL Indeterminate: ?0.15 - 0.50 ng/mL [place] / Cardiac Muscle Damage: ? >0.50 ng/mL Current interpretive data was last reviewed 2015 Blood specimen (specimen) 09/11/2016 1:32 PM CDT 09/11/2016 1:36 PM CDT us Rosio Horton MD LAB BLOOD ORDERABLES Final Re sult MARY JANE [address] [address] Department [place] [address] documented in this encounter Visit Diagnoses Not on filedocumented in this encounter Care Teams Utility Helicopter Repairer Relationship Specialty Start Date End Date Lavonne Hathaway MD [facility] [place] [address] PCP - General 08/16/16 08/17/17 documented as of this encounter
--- OUTSIDE RECORDS SUMMARY | 2024-04-26 04:30 | XMS_ITS | Encounter Summary ---
Author Organization [facility] Healthcare Address [address] [place] [address] Care Team Providers Care Relief Cook Name Role Phone Lavonne Hathaway MD Primary Care Provider +1- [phone] Antoinette Zhu MD Primary Care Provider +1 -[phone] Lavonne Hathaway MD Primary Care Provider +1- [phone] Encounter Details Date Type Department Care Team (Latest Contact Info) Description 08/08/2016 10:37 AM CDT - 10/11/2016 11:59 PM T Hospital Encounter [facility] OP INTERIM [phone] Wero Kern MD PhD [address] [address] Discharge Disposition: Discharge to home or self care Social History Tobacco Use Types Packs/Day Years Used Date Smoking Tobacco: Former Alcohol Use Standard Drinks/Week Comments No 0 (1 standard drink = 0.6 oz pur e alcohol) Comments Unknown Sex and Gender Information Value Date Recorded Sex Assigned at Not on file 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 Female 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 PHARMACY Gender Identity Not on file Sexual Orientation [...] CBC WITH AUTO DIFFERENTIAL Routine Gen Lab 10/11/2016 11:55 AM CDT COMPREHENSIVE METABOLIC PANEL STAT 10/11/2016 11:52 AM CDT DISCHARGE LABORATORY CUMULATIVE REPORT 08/08/2016 documented in this encounter Results * (ABNORMAL) CBC with auto differential (10/11/2016 11:55 AM CDT) [facility] WBC 7.1 3.8 - 9.8 K/cumm [facility] RBC 4.09 3.90 - 5.00 M/cumm [facility] Hgb 11.6(L) 12.1 - 15.1 g/dL [facility] Hct 35.7(L) 36.1 - 44.3 % [facility] Mean Cellular Volume - CAM 87.3 80.0 - 97.6 fL [facility] Mean Cellular Hemoglobin - CAM 28.5 26.7 - 33.7 pg [facility] Mean Cellular Hemoglobin Concentration - CAM 32.6(L) 32.7 - 35.5 g/dL [facility] Rdw 14.7(H) 11.8 - 14.6 % [facility] Plt 262 140 - 440 K/cumm [facility] Mean Platelet Volume - CAM 7.6 6.8 - 10.4 fL [facility] Neutrophil pct 61.5 38.7 - 74.5 % [facility] Lymphocyte pct 28.4 20.0 - 54.3 % [facility] Monos 6.8 4.3 - 13.5 % [facility] Eosinophil pct 2.5 0.0 - 6.0 % [facility] Basophil pct 0.8 0.0 - 3.0 % [facility] Neutrophil abs 4.4 1.8 - 6.6 K/cumm [facility] Lymphocyte abs 2.0 1.2 - 3.3 K/cumm [facility] Monocyte abs 0.5 0.2 - 1.2 K/cumm [facility] Eosinophils, abs 0.2 0.0 - 0.5 K/cumm [facility] Basophil abs 0.1 0.0 - 0.2 K/cumm [facility] NRBC 0.0 0.0 - 0.2 % [facility] NRBC abs 0.00 0.00 - 0.01 K/cumm [facility] Blood specimen (specimen) 10/11/2016 11:55 AM CDT 10/11/2016 11:59 AM CDT us Notinfile Unknown LAB BLOOD ORDERABLES Final Res ult [facility] Department [place] [address] * (ABNORMAL) Comprehensive metabolic panel (10/11/2016 11:52 AM CDT) Sodium 136 135 - 145 mmol/L [facility] Potassium, pl 4.4 3.3 - 4.9 mmol/L [facility] CO2 26 22 - 32 mmol/L [facility] BUN 14 8 - 25 mg/dL [facility] Glucose 237(H) 70 - 199 mg/dL [facility] Creatinine 0.65 0.60 - 1.10 mg/dL [facility] Calcium 9.6 8.5 - 10.3 mg/dL [facility] Chloride 103 97 - 110 mmol/L [facility] Albumin 3.5 3.5 - 5.0 g/dL [facility] AST 20 10 - 45 Units/L [facility] ALT 22 7 - 45 Units/L [facility] Alk phos 60 40 - 130 Units/L [facility] Bilirubin, total 0.4 0.1 - 1.2 mg/dL [facility] Protein, pl 7.6 6.5 - 8.5 g/dL [facility] Anion gap 7 2 - 15 mmol/L [facility] Blood specimen (specimen) 10/11/2016 11:52 AM CDT 10/11/2016 12:07 PM CDT us Notinfile Unknown LAB BLOOD ORDERABLES Final Res ult [facility] Department [place] [address] * DISCHARGE LABORATORY CUMULATIVE REPORT (08/08/2016) us Provider Scanning LAB BLOOD ORDERABLES Final Res ult documented in this encounter Visit Diagnoses Not on filedocumented in this encounter Care Teams Relief Cook Relationship Specialty Start Date End Date Lavonne Hathaway MD [address] [place] [address] [place] [address] PCP - General 07/27/16 08/10/16 Antoinette Zhu MD [address] [address] PCP - General 08/11/16 08/15/16 Lavonne Hathaway MD [facility] [place] [address] PCP - General 08/16/16 08/17/17 documented as of this encounter
--- OUTSIDE RECORDS SUMMARY | 2024-04-26 04:30 | XMS_ITS | Encounter Summary ---
Author Organization [facility] Healthcare Address [address] [place] [address] Care Team Providers Care Chimney Builder Name Role Phone Lavonne Hathaway MD Primary Care Provider +1- [phone] Encounter Details Date Type Department Care Team (Late st Contact Info) Description 09/11/2016 Orders Only [facility] Lab Interim [phone] [place] [address] [id number] Social History Tobacco Use Types Packs/Day Years Used Date Smoking Tobacco: Former Alcohol Use Standard Drinks/Week Comments No 0 (1 standard drink = 0.6 oz pur e alcohol) Comments Unknown Sex and Gender Information Value Date Recorded Sex Assigned at Not on file 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 Sex Female 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 Gender Identity Not on file Sexual Orientation Not on file documented as of this encounter Plan of Treatment Not on file documented as of this encounter Procedures Procedure Name Priority Date/Time Associated Diagnosis Comments GLUCOSE POC Routine 09/11/2016 4:56 PM CDT documented in this encounter Results * (ABNORMAL) Glucose POC (09/11/2016 4:56 PM CDT) Glucose, POC 232(H) 70 - 199 mg/dL MARY JANE ARNOLD Blood specimen (specimen) 09/11/2016 4:56 PM CDT 09/11/2016 4:56 PM CDT us Leoncio Hawkins MD POINT OF CARE TEST ORDERABLES F inal Result MARY JANE ARNOLD [address] [address] Department [place] [address] documented in this encounter Visit Diagnoses Not on filedocumented in this encounter Care Teams Chimney Builder Relationship Specialty Start Date End Date Lavonne Hathaway MD [facility] [place] [address] PCP - General 08/16/16 08/17/17 documented as of this encounter
--- OUTSIDE RECORDS SUMMARY | 2024-04-26 04:30 | XMS_ITS | Encounter Summary ---
Author Organization [facility] Healthcare Address [address] [place] [address] Care Team Providers Care Music Publicist Name Role Phone Lavonne Hathaway MD Primary Care Provider +1- [phone] Encounter Details Date Type Department Care Team (Late st Contact Info) Description 09/13/2016 Orders Only Cerner Lab Interim [phone] [place] [address] [id number] Social History Tobacco Use Types Packs/Day Years Used Date Smoking Tobacco: Former Alcohol Use Standard Drinks/Week Comments No 0 (1 standard drink = 0.6 oz pur e alcohol) Comments Unknown Sex and Gender Information Value Date Recorded Sex Assigned at Not on file 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 Gender Identity Not on file Sexual Orientation Not on file documented as of this encounter Plan of Treatment Not on file documented as of this encounter Procedures Procedure Name Priority Date/Time Associated Diagnosis Comments GLUCOSE POC Routine 09/13/2016 5:25 PM CDT documented in this encounter Results * Glucose POC (09/13/2016 5:25 PM CDT) Glucose, POC 185 70 - 199 mg/dL MARY JANE ARNOLD Blood specimen (specimen) 09/13/2016 5:25 PM CDT 09/13/2016 5:25 PM CDT us Leoncio Hawkins MD POINT OF CARE TEST ORDERABLES F inal Result MARY JANE ARNOLD [address] [address] Department [place] [address] documented in this encounter Visit Diagnoses Not on filedocumented in this encounter Care Teams Music Publicist Relationship Specialty Start Date End Date Lavonne Hathaway MD [facility] [place] [address] PCP - General 08/16/16 08/17/17 documented as of this encounter
--- OUTSIDE RECORDS SUMMARY | 2024-04-26 04:30 | XMS_ITS | Encounter Summary ---
Author Organization [facility] Healthcare Address [address] [place] [address] Care Team Providers Care Lost And Found Clerk Name Role Phone Lavonne Hathaway MD Primary Care Provider +1- [phone] Encounter Details Date Type Department Care Team (Late st Contact Info) Description 09/12/2016 Orders Only Cerner Lab Interim [phone] Dorene Hernandez, SILK SCREENER [address] [address] Social History Tobacco Use Types Packs/Day Years Used Date Smoking Tobacco: Former Alcohol Use Standard Drinks/Week Comments No 0 (1 standard drink = 0.6 oz pur e alcohol) Comments Unknown Sex and Gender Information Value Date Recorded Sex Assigned at Not on file 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 Glycemia controlled ??>8% ?? Hyperglycemia, additional action recommended Lizandro Immunochemical Method Current interpretive data was last revised on 2015 Testing performed by: [facility], [place] [address] Estimated Average Glucose 183 mg/dL MARY JANE ARNOLD Comment:Testing performed by : [facility], [place] [address] Blood specimen (specimen) 09/12/2016 5:54 AM CDT 09/12/2016 12:50 PM CDT Dorene Hernandez NP LAB BLOOD ORDERABLES Deann l Result MARY JANE [address] [address] Department of [place] [address] documented in this encounter Visit Diagnoses Not on filedocumented in this encounter Care Teams Lost And Found Clerk Relationship Specialty Start Date End Date Lavonne Hathaway MD [facility] [place] [address] PCP - General 08/16/16 08/17/17 documented as of this encounter
--- OUTSIDE RECORDS SUMMARY | 2024-04-26 04:30 | XMS_ITS | Encounter Summary ---
Author Organization [facility] Healthcare Address [address] [place] [address] Care Team Providers Care Charging Crane Operator Name Role Phone Lavonne Hathaway MD Primary Care Provider +1- [phone] Encounter Details Date Type Department Care Team (Late st Contact Info) Description 09/12/2016 Orders Only [facility] [phone] Dorene Hernandez, LEATHER PRODUCTION ARTISAN [address] [id number] Social History Tobacco Use Types Packs/Day Years Used Date Smoking Tobacco: Former Alcohol Use Standard Drinks/Week Comments No 0 (1 standard drink = 0.6 oz pur e alcohol) Comments Unknown Sex and Gender Information Value Date Recorded Sex Assigned at Not on file 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 Female 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 Gender Identity Not on file Sexual Orientation Not on file documented as of this encounter Plan of Treatment Not on file documented as of this encounter Procedures Procedure Name Priority Date/Time Associated Diagnosis Comments CBC WITH AUTO DIFFERENTIAL Routine 09/12/2016 5:54 AM CDT documented in this encounter Results * (ABNORMAL) CBC with auto differential (09/12/2016 5:54 AM CDT) WBC 7.34 3.80 - 9.90 K/cumm [facility] RBC 3.96 3.90 - 5.20 M/cumm [facility] Hgb 11.5(L) 11.9 - 15.5 g/dL [facility] Hct 37.1 35.6 - 45.5 % [facility] MCV 93.7 81.3 - 96.4 fL [facility] MCH 29.0 27.1 - 33.3 pg [facility] MCHC 31.0(L) 32.3 - 35.7 g/dL [facility] RDW CV 14.3 11.1 - 14.9 % [facility] RDW SD 49.0(H) 35.7 - 48.1 fL [facility] Plt 244 150 - 400 K/cumm [facility] MPV 10.1 9.1 - 12.3 fL [facility] NRBC 0.0 0.0 - 0.2 % [facility] NRBC abs 0.00 0.00 - 0.01 K/cumm [facility] Blood specimen (specimen) 09/12/2016 5:54 AM CDT 09/12/2016 6:37 AM CDT Dorene Hernandez LEATHER [employer]ODUCTION ARTISAN LAB BLOOD ORDERABLES Deann bowman Result MARY JANE ARNOLD [address] [address] Department of Laboratories [place], [place] [id number] documented in this encounter Visit Diagnoses Not on filedocumented in this encounter Care Teams Charging Crane Operator Relationship Specialty Start Date End Date Lavonne Hathaway MD [facility] [place] [address] PCP - General 08/16/16 08/17/17 documented as of this encounter
--- OUTSIDE RECORDS SUMMARY | 2024-04-26 04:30 | XMS_ITS | Encounter Summary ---
Author Organization [facility] Healthcare Address [address] [place] [address] Care Team Providers Care Windows Systems Engineer Name Role Phone Lavonne Hathaway MD Primary Care Provider +1- [phone] Encounter Details Date Type Department Care Team (Late st Contact Info) Description 09/12/2016 Orders Only [facility] Interim [phone] [place] [address] [id number] Social History Tobacco Use Types Packs/Day Years Used Date Smoking Tobacco: Former Alcohol Use Standard Drinks/Week Comments No 0 (1 standard drink = 0.6 oz pur e alcohol) Comments Unknown Sex and Gender Information Value Date Recorded Sex Assigned at Not on file 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 Gender Identity Not on file Sexual Orientation Not on file documented as of this encounter Plan of Treatment Not on file documented as of this encounter Procedures Procedure Name Priority Date/Time Associated Diagnosis Comments GLUCOSE POC Routine 09/12/2016 6:11 AM CDT documented in this encounter Results * (ABNORMAL) Glucose POC (09/12/2016 6:11 AM CDT) Glucose, POC 203(H) 70 - 199 mg/dL [facility]ARY JANE ARNOLD Blood specimen (specimen) 09/12/2016 6:11 AM CDT 09/12/2016 6:11 AM CDT us Leoncio Hawkins MD POINT OF CARE TEST ORDERABLES F inal Result MARY JANE ARNOLD [address] [address] Department [place] [address] documented in this encounter Visit Diagnoses Not on filedocumented in this encounter Care Teams Windows Systems Engineer Relationship Specialty Start Date End Date Lavonne Hathaway MD [facility] [place] [address] PCP - General 08/16/16 08/17/17 documented as of this encounter
--- OUTSIDE RECORDS SUMMARY | 2024-04-26 04:30 | XMS_ITS | Encounter Summary ---
Author Organization [facility] Healthcare Address [address] [place] [address] Care Team Providers Care Geospatial Information Scientist Name Role Phone Lavonne Hathaway MD Primary Care Provider +1- [phone] Encounter Details Date Type Department Care Team (Late st Contact Info) Description 09/11/2016 Orders Only [facility] Inter[facility] [phone] [place] [address] [id number] Social History Tobacco Use Types Packs/Day Years Used Date Smoking Tobacco: Former Alcohol Use Standard Drinks/Week Comments No 0 (1 standard drink = 0.6 oz pur e alcohol) Comments Unknown Sex and Gender Information Value Date Recorded Sex Assigned at Not on file 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 Female 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 Gender Identity Not on file Sexual Orientation Not on file documented as of this encounter Plan of Treatment Not on file documented as of this encounter Procedures Procedure Name Priority Date/Time Associated Diagnosis Comments GLUCOSE POC Routine 09/11/2016 9:37 PM CDT documented in this encounter Results * (ABNORMAL) Glucose POC (09/11/2016 9:37 PM CDT) Glucose, POC 246(H) 70 - 199 mg/dL MARY JANE ARNOLD Blood specimen (specimen) 09/11/2016 9:37 PM CDT 09/11/2016 9:37 PM CDT us Leoncio Hawkins MD POINT OF CARE TEST ORDERABLES F inal Result MARY JANE ARNOLD [address] [address] Department [place] [address] documented in this encounter Visit Diagnoses Not on filedocumented in this encounter Care Teams Geospatial Information Scientist Relationship Specialty Start Date End Date Lavonne Hathaway MD [facility] [place] [address] PCP - General 08/16/16 08/17/17 documented as of this encounter
--- OUTSIDE RECORDS SUMMARY | 2024-04-26 04:30 | XMS_ITS | Encounter Summary ---
Author Organization [facility] Healthcare Address [address] [place] [address] Care Team Providers Care Security Specialist Name Role Phone Lavonne Hathaway MD Primary Care Provider +1- [phone] Encounter Details Date Type Department Care Team (Late st Contact Info) Description 09/12/2016 Orders Only [facility] Interim [phone] [place] [address] [phone] Social History Tobacco Use Types Packs/Day Years Used Date Smoking Tobacco: Former Alcohol Use Standard Drinks/Week Comments No 0 (1 standard drink = 0.6 oz pur e alcohol) Comments Unknown Sex and Gender Information Value Date Recorded Sex Assigned at Not on file 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 Gender Identity Not on file Sexual Orientation Not on file documented as of this encounter Plan of Treatment Not on file documented as of this encounter Procedures Procedure Name Priority Date/Time Associated Diagnosis Comments GLUCOSE POC Routine 09/12/2016 7:10 AM CDT documented in this encounter Results * Glucose POC (09/12/2016 7:10 AM CDT) Glucose, POC 181 70 - 199 mg/dL MARY JANE ARNOLD Blood specimen (specimen) 09/12/2016 7:10 AM CDT 09/12/2016 7:10 AM CDT us Leoncio Hawkins MD POINT OF CARE TEST ORDERABLES F inal Result MARY JANE ARNOLD [address] [address] Department [place] [address] documented in this encounter Visit Diagnoses Not on filedocumented in this encounter Care Teams Security Specialist Relationship Specialty Start Date End Date Lavonne Hathaway MD [facility] [place] [address] PCP - General 08/16/16 08/17/17 documented as of this encounter
--- OUTSIDE RECORDS SUMMARY | 2024-04-26 04:30 | XMS_ITS | Encounter Summary ---
Author Organization [facility] Address [address] [facility] [address] [place] [address] Care Team Providers Care Hardwood Floor Refinisher Name Role Phone Lavonne Hathaway MD Primary Care Provider +1- [phone] Encounter Details Date Type Department Care Team (Late st Contact Info) Description 09/13/2016 Orders Only [facility] Hospitalists [address] [place] [address] [place] [address] [facility] [address] [place] [address] Social History Tobacco Use Types Packs/Day Years Used Date Smoking Tobacco: Former Alcohol Use Standard Drinks/Week Comments No 0 (1 standard drink = 0.6 oz pur e alcohol) Comments Unknown Sex and Gender Information Value Date Recorded Sex Assigned at Not on file 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 Gender Identity Not on file Sexual Orientation Not on file documented as of this encounter Plan of Treatment Not on file documented as of this encounter Procedures Procedure Name Priority Date/Time Associated Diagnosis Comments COMPREHENSIVE METABOLIC PANEL Routine 09/13/2016 8:30 AM CDT documented in this encounter Results * (ABNORMAL) Comprehensive metabolic panel (09/13/2016 8:30 AM CDT) Sodium 134(L) 135 - 145 mmol/L [facility] Potassium, pl 4.6 3.5 - 5.1 mmol/L [facility] CO2 24 22 - 32 mmol/L [facility] BUN 13 8 - 24 mg/dL [facility] Glucose 278(H) 70 - 199 mg/dL [facility] Creatinine 0.77 0.60 - 1.30 mg/dL [facility] Calcium 8.9 8.4 - 10.5 mg/dL [facility] Chloride 102 100 - 114 mmol/L [facility] Albumin 2.8(L) 3.2 - 4.8 g/dL [facility] AST 20 7 - 40 Units/L [facility] ALT 23 1 - 45 Units/L [facility] Alk phos 57 30 - 110 Units/L [facility] Bilirubin, total 0.10 0.10 - 1.30 mg/dL [facility] Protein, pl 6.6 6.0 - 8.3 g/dL [facility] Anion gap 13 8 - 16 mmol/L [facility] Blood specimen (specimen) 09/13/2016 8:30 AM CDT 09/13/2016 8:36 AM CDT Bernardo Painter MD LAB BLOOD ORDERABLES Final Resul t [facility] [address] [address] Department [place] [address] documented in this encounter Visit Diagnoses Not on filedocumented in this encounter Care Teams Hardwood Floor Refinisher Relationship Specialty Start Date End Date Lavonne Hathaway MD [address] [place] [address] [place] [address] PCP - General 08/16/16 08/17/17 documented as of this encounter
--- OUTSIDE RECORDS SUMMARY | 2024-04-26 04:30 | XMS_ITS | Encounter Summary ---
Author Organization [facility] Healthcare Address [address] [place] [address] Care Team Providers Care Network Internship Name Role Phone Lavonne Hathaway MD Primary Care Provider +1- [phone] Encounter Details Date Type Department Care Team (Late st Contact Info) Description 09/11/2016 Orders Only [facility] Inter[facility] [phone] [place] [address] [phone] Social History Tobacco Use Types Packs/Day Years Used Date Smoking Tobacco: Former Alcohol Use Standard Drinks/Week Comments No 0 (1 standard drink = 0.6 oz pur e alcohol) Comments Unknown Sex and Gender Information Value Date Recorded Sex Assigned at Not on file 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 Gender Identity Not on file Sexual Orientation Not on file documented as of this encounter Plan of Treatment Not on file documented as of this encounter Procedures Procedure Name Priority Date/Time Associated Diagnosis Comments GLUCOSE POC Routine 09/11/2016 12:46 PM CDT documented in this encounter Results * (ABNORMAL) Glucose POC (09/11/2016 12:46 PM CDT) Glucose, POC 272(H) 70 - 199 mg/dL MARY JANE ARNOLD Blood specimen (specimen) 09/11/2016 12:46 PM CDT 09/11/2016 12:46 PM CDT us Leoncio Hawkins MD POINT OF CARE TEST ORDERABLES F inal Result MARY JANE ARNOLD [address] [address] Department [place] [address] documented in this encounter Visit Diagnoses Not on filedocumented in this encounter Care Teams Network Internship Relationship Specialty Start Date End Date Lavonne Hathaway MD [facility] [place] [address] PCP - General 08/16/16 08/17/17 documented as of this encounter
--- OUTSIDE RECORDS SUMMARY | 2024-04-26 04:30 | XMS_ITS | Encounter Summary ---
Author Organization [facility] Address [address] [facility] [address] [place] [address] Care Team Providers Care Front Line Supervisor Name Role Phone Lavonne Hathaway MD Primary Care Provider +1- [phone] Encounter Details Date Type Department Care Team (Late st Contact Info) Description 09/13/2016 Orders Only [facility] Hospitalists [address] [place] [address] [place] [address] [facility] [address] [place] [address] Social History Tobacco Use Types Packs/Day Years Used Date Smoking Tobacco: Former Alcohol Use Standard Drinks/Week Comments No 0 (1 standard drink = 0.6 oz pur e alcohol) Comments Unknown Sex and Gender Information Value Date Recorded Sex Assigned at Not on file 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 Gender Identity Not on file Sexual Orientation Not on file documented as of this encounter Plan of Treatment Not on file documented as of this encounter Procedures Procedure Name Priority Date/Time Associated Diagnosis Comments CBC WITH AUTO DIFFERENTIAL Routine 09/13/2016 8:30 AM CDT documented in this encounter Results * (ABNORMAL) CBC with auto differential (09/13/2016 8:30 AM CDT) WBC 8.12 3.80 - 9.90 K/cumm [facility] RBC 4.17 3.90 - 5.20 M/cumm [facility] Hgb 11.9 11.9 - 15.5 g/dL [facility] Hct 38.3 35.6 - 45.5 % [facility] MCV 91.8 81.3 - 96.4 fL [facility] MCH 28.5 27.1 - 33.3 pg [facility] MCHC 31.1(L) 32.3 - 35.7 g/dL [facility] RDW CV 14.2 11.1 - 14.9 % [facility] RDW SD 47.7 35.7 - 48.1 fL [facility] Plt 265 150 - 400 K/cumm [facility] MPV 10.0 9.1 - 12.3 fL [facility] NRBC 0.0 0.0 - 0.2 % [facility] NRBC abs 0.00 0.00 - 0.01 K/cumm [facility] Blood specimen (specimen) 09/13/2016 8:30 AM CDT 09/13/2016 8:37 AM CDT Bernardo Painter MD LAB BLOOD ORDERABLES Final Resul t [facility] [address] [address] Department [place] [address] documented in this encounter Visit Diagnoses Not on filedocumented in this encounter Care Teams Front Line Supervisor Relationship Specialty Start Date End Date Lavonne Hathaway MD [address] [place] [address] [place] [address] PCP - General 08/16/16 08/17/17 documented as of this encounter
--- OUTSIDE RECORDS SUMMARY | 2024-04-26 04:30 | XMS_ITS | Encounter Summary ---
Author Organization [facility] Healthcare Address [address] [place] [address] Care Team Providers Care Milk Collector Name Role Phone Lavonne Hathaway MD Primary Care Provider [phone] Encounter Details Date Type Department Care Team (Latest Contact Info) Description 01/05/2017 5:57 PM CDT - 01/07/2017 6:14 PM CDT Hospital Encounter [facility] [id number] [place] [address] [place] [id number] [address] Discharge Disposition: Discharge to home or self care Social History Tobacco Use Types Packs/Day Years Used Date Smoking Tobacco: Former Alcohol Use Standard Drinks/Week Comments No 0 (1 standard drink = 0.6 oz pur e alcohol) Comments Unknown Sex and Gender Information Value Date Recorded Sex Assigned at Not on file 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 Gender Identity Not on file Sexual Orientation Not on file documented as of this encounter Last Filed Vital Signs Vital Sign Reading Time Taken Comments Blood Pressure 113/66 01/07/2017 4:28 PM CDT Pulse 93 01/07/2017 4:28 PM CDT Temperature - - Respiratory Rate - - Oxygen Saturation - - Inhaled Oxygen Concentration - - Weight 134.3 kg (296 lb 1.2 oz) 01/03/2017 1:15 PM CDT Height 154.9 cm (5' 0.98 ) 01/03/2017 1:15 PM CD T Body Mass Index 55.97 01/03/2017 1:15 PM CDT documented in this encounter Discharge Summaries * Miscellaneous, Not In File - 01/07/2017 5:00 AM CDT DISCHARGE SUMMARY Patient: MOHSEN MARQUES Account: [id number] Room No: 1010-02 : 1955 Patient Type: IP Attend.: Porfirio Riley M.D., Aleksander, RcP. Admit Date: 01/02/2017 Dict.: Porfirio Riley M.D., Aleksander, FelipaCTyeP. Disch. Date: 01/07/2017 DISCHARGE DIAGNOSES 1. Intractable back pain and bilateral leg weakness in a patient with a history of breast cancer. 2. History of breast cancer, status post bilateral mastectomy, estrogen receptor positive, HER2 negative. 3. Type 2 diabetes mellitus. 4. Leukocytosis. 5. Morbid obesity. Ms. Mohsen Marques is a 61-year-old lady with morbid obesity and multiple medical problems. She was admitted on January 02, 2017, on account of low back pain which was quite severe and also weakness. There was no urinary or fecal incontinence. She was also seen by Orthopedics. She was claustrophobic and also her body habitus did not allow her to fit into a closed MRI. She went for an open MRI in [place] but could not fit into that machine also because of her body habitus. Also when she was measured she could not go to the [facility] for MRI. She however had a CT scan of the spine and the CT scan of the spine showed degenerative changes in the thoracic and lumbar spine with no bony destruction or sclerotic lesion seen. X-rays of the tibia and fibula were negative. She responded to intravenous pain medication. She later was transitioned to oral pain medications and also to Flexeril. At this juncture, she has improved. She has been counseled about diet and weight loss. DISCHARGE MEDICATIONS 1. Calcium carbonate 1000 mg b.i.d. 2. Exemestane 25 mg daily. 3. Lisinopril 20 mg daily. 4. Oxybutynin 5 mg daily. 5. Xarelto 20 mg daily. 6. Ropinirole 5 mg at bedtime. 7. Janumet b.i.d. 8. Flexeril 5 mg q.8 hourly p.r.n. 9. Worton 7.5/325 one tab q.6 hours hourly p.r.n. Time spent on coordinating the discharge is 35 minutes. Patient seen and examined by me on discharge. Progress notes in the electronic health record. Electronically Authenticated by: Porfirio Riley MD On 01/10/2017 09:50 AM CDT Porfirio Riley M.D., F.H.M., F.A.C.P. [facility] TD: 01/07/2017 15:16 Aveyr Jones M.D. Ravindra Shitut, M.D. documented in this encounter Medications at Time [...] or self care documented in this encounter H&P Notes * Miscellaneous, Not In File - 01/02/2017 5:00 AM CDT HISTORY AND PHYSICAL Patient: MOHSEN MARQUES Account: [id number] Room No: 1010-02 : 1955 Patient Type: [facility] Attend.: Porfirio Riley M.D., Aleksander, F.A.C.P. Admit Date: 01/02/2017 Dict.: Porfirio Riley M.D., Aleksander, F.A.C.P. Disch. Date: CHIEF COMPLAINT Leg pain and weakness. HISTORY OF PRESENT ILLNESS Ms. Mohsen Marques is a 61-year-old lady with stage 2 breast cancer who has been disease free. She follows up in the [facility] [place]. She was estrogen receptor positive, HER2 negative and is currently on Exemestane. She had bilateral mastectomy in September of 2014. Her last visit to [facility] was in October 11, 2016. She is also supposed to be on calcium and vitamin D supplementation but she does not take it as when due. She says she takes it from time to time. Be that as it may, she has been having some leg pain and weakness and also some lower back pain. There is no nausea, no vomiting, no orthopnea, no paroxysmal nocturnal dyspnea. She denies any urinary or fecal incontinence. Also denies any seizure. She came into the ED for evaluation. In the ED, temperature was 98.4 heart rate was 88 respiratory rate was 18, and blood pressure 129/68 mmHg. SYSTEMIC REVIEW Fourteen point systemic review is negative unless otherwise stated in the body of the history. PAST MEDICAL HISTORY History of DVT of the lower extremities and bilateral PE in July of 2016, hypertension, hypothyroidism, left upper extremity lymphedema. Breast cancer status post bilateral mastectomy in September of 2014, restless legs syndrome status post right knee replacement. ALLERGIES TO CEPHALOSPORIN WHICH CAUSES DYSPNEA. OXYCODONE CAUSES VOMITING. THIS IS MOST LIKELY A SIDE EFFECT IT WERE. REGLAN MAKES HER FEEL FUNNY. ROCEPHIN SHE SAYS CAUSES HER TO BE SHORT OF BREATH. FAMILY AND SOCIAL HISTORY She lives with her family. Her sister has breast cancer. She was diagnosed at the age of 58. Also another sister has breast cancer at the age of 51. She has a brother who has metastatic colorectal cancer. This was diagnosed when was in his 50s. Her father also had prostate cancer. She quit smoking cigarettes in 1979. Does not drink alcohol. MEDICATIONS 1. Janumet p.o. b.i.d. 2. Xarelto 20 mg daily. 3. Exemestane 25 mg daily. 4. Lisinopril 20 mg daily. 5. Oxybutynin ER 5 mg daily. 6. Ropinirole 5 mg at bedtime. EXAMINATION Vital signs: Are as follows: Temperature 99.1, heart rate of 79, respiratory rate of 20, blood pressure 124/68 mmHg. She is a middle aged lady who is obese. She weighs 296 pounds and is 5 feet 1 inch tall giving rise to a BMI of 56. She is pleasant. She is conscious and alert, well oriented, not in any distress presently. Head eyes nose and throat: Eyes pupils 3 to 4 mm equal and reactive. There are normal tympanic membranes. Nose: Nares patent. Central nonperforated septum. Oral cavity is normal. Neck: Supple. No JVD. No cervical lymphadenopathy. No thyromegaly. Chest: Clinically clear. Good air entry bilaterally. Cardiovascular System: S1, S2 normal. No S3, no S4. No gallop. No murmur. Abdomen: Obese, soft, nontender. No organ palpably enlarged. Bowel sounds normoactive. Back: Reveals tenderness at the T10-T11 level. There is however no paraspinal spasm presently. Extremities: Extremity power is 4/5 in both lower extremities. This is probably because of pain. She says she hurts in her anterior legs. LABORATORY TESTS The venous Doppler of the lower extremities were negative for DVT. X-ray of the right tibia shows no acute bony findings. The right knee arthroplasty is well aligned. The x-ray of the left tibia fibula shows no fracture, but some degenerative disease. WBCs 12, hemoglobin 12.6, hematocrit 39.9. Complete metabolic profile normal except for chloride of 99 and calcium of 9.8, estimated GFR is 88. ASSESSMENT AND PLAN All diagnoses present on admission. 1. Bilateral leg weakness and pain in a patient with a history of breast cancer stage 2 breast cancer with history of receptor positive and HER2 negative. At this juncture, it is pertinent to obtain an MRI of the spine to rule out any secondaries. She also has not been taking her vitamin D and calcium as and when due. Will check a vitamin D level. Calcium is normal. We will also check the PTH and CPK level. 2. Type 2 diabetes mellitus. 3. Leukocytosis. 4. Morbid obesity. 5. History of deep venous thrombosis and pulmonary embolism on Xarelto. 6. Type 2 diabetes mellitus, is on Janumet at home. Be that as it may, in the hospital she will be on sliding scale of insulin and this will be adjusted. Discharge planning will depend on patient's clinical progress. Electronically Authenticated by: Porfirio Riley MD On 01/04/2017 08:54 AM CDT Porfirio Riley M.D., F.H.M., F.A.C.P. [place]/katelyn TD: 01/03/2017 17:41 CC: Williams Cronin M.D. documented in this encounter Consult Notes * Miscellaneous, Not In File - 01/03/2017 5:00 AM CDT CONSULTATION REPORT Patient: MOHSEN MARQUES Service Date: 01/03/2017 Account: [id number] Room No: 1009-01 : 1955 Patient Type: [facility] Attend.: Porfirio Riley M.D., F.H.M., F.A.C.P. Admit Date: 01/02/2017 Consult.: Williams Cronin M.D. Disch. Date: CONSULTING PROVIDER Williams Cronin MD I had the pleasure of seeing Mohsen Marques in consultation. As you know, she is a 61-year-old white female I was asked to see for bilateral painful lower extremities. She said it just began about 3-4 days ago. Denies any history of trauma or injury, just severe pain and tenderness in both of her calves. The right side is significantly worse than the left side. She has not had any significant weakness, the biggest thing has just been pain. She has had a little bit of numbness, maybe some tingling, but not to a significant degree. It is just pain. She is not a particularly active lady. She has had a history of multiple DVTs and actually had DVTs with PEs back in September and so she was told she will have to be on anticoagulants for the rest of her life. She is presently on anticoagulation at this time. She cannot think of anything different or unusual in her routine or activities that might have caused this problem. No systemic symptomatology. She is presently taking Xarelto for her anticoagulation. Still taking Vicodin and tramadol for pain relief, again without any significant response. PAST MEDICAL HISTORY Significant for hypertension, restless leg syndrome, the previously mentioned DVTs with PEs, pulmonary emboli, breast cancer, diabetes with neuropathy. PREVIOUS SURGERIES Caesarean section, cholecystectomy, oophorectomy, right knee surgery, herniorrhaphy and bilateral mastectomies periods. MEDICATIONS 1. Janumet 50 mg 1 tablet p.o. b.i.d. 2. Xarelto 20 mg p.o. daily. 3. Exemestane 25 mg p.o. daily. 4. Lisinopril 20 mg p.o. daily. 5. Oxybutynin chloride 5 mg p.o. daily . 6. Ropinirole 5 mg p.o. bedtime. ALLERGIC CEPHALOSPORINS, REGLAN, OXYCODONE AND ROCEPHIN. REVIEW OF SYSTEMS Constitutional: No fever, chills, or weight loss. HEENT: No change in vision, speech or hearing. Cardiovascular: No chest pain shortness of breath. Respiratory: No wheezing or cough. Gastrointestinal: No nausea, vomiting, diarrhea. Genitourinary: No hematuria or discharge. Musculoskeletal: Bilateral complains painful legs. Please see History of Present Illness. Neurologic: No seizures or headaches. Skin: No ulcerations, lesions or breakdown. PHYSICAL EXAM Patient is examined in her hospital bed. She was sitting up. She is alert oriented x3, and morbidly obese. Upper extremities are moving normally. No pain or tenderness. Lower Extremities: She has definite tenderness of the calves bilaterally. No tenderness up in her thigh region. Range of motion of the lower extremities is decreased secondary to tenderness as well as pain. The tenderness is localized in the calf region. She is tender to light touch as well as deeper palpation. No palpable masses are noted. No ulcerations, skin lesions or breakdown. She has 4+ over 5 motor power bilaterally with straining of the muscles not increasing her pain or tenderness. Good dorsalis pedis and posterior tibialis pulses bilaterally. No evidence any vascular compromise. Sensation is intact. She is just painful. LABORATORY STUDIES CMP is normal, aluminum chloride being slightly low at 99. CBC is unremarkable other than WBCs being slightly elevated at 12,000. And her lower extremity Doppler showed no evidence of a DVT in the left lower extremity. IMPRESSION 1. Several day history of acute blunted bilateral calf tenderness, left greater than right. 2. Significant history of deep venous thromboses on Xarelto anticoagulation for life. PLAN At this point, I would like to get some x-rays of her tibias. I am not sure they will show anything. Her pain appears possibly neuritic in nature due to the fact that it is a bilateral condition and it is certainly more sensitive than expected for any typical muscle oriented problems, and she is also very tender with just light touch. I have explained to her she might need a neurologic evaluation possibly EMG NCV study. I will re-evaluate after the x-rays are available. Thank you very much for allowing me to participate in her care. Electronically Authenticated by: Williams Cronin Jr, MD On 01/04/2017 07:37 AM CDT Williams Cronin M.D. BENITO/katelyn TD: 01/03/2017 13:18 documented in this encounter Plan of Treatment Not on file documented as of this encounter Procedures Procedure Name Priority Date/Time Associated Diagnosis Comments GLUCOSE POC Routine 01/07/2017 12:30 PM CDT GLUCOSE POC Routine 01/07/2017 6:28 AM CDT GLUCOSE POC Routine 01/07/2017 4:07 AM CDT DISCHARGE LABORATORY CUMULATIVE REPORT 01/07/2017 12:00 AM CDT GLUCOSE POC Routine 01/06/2017 8:55 PM CDT GLUCOSE POC Routine 01/06/2017 4:52 PM CDT GLUCOSE POC Routine 01/06/2017 11:52 AM CDT GLUCOSE POC Routine 01/06/2017 6:29 AM CDT GLUCOSE POC Routine 01/06/2017 3:08 AM CDT GLUCOSE POC Routine 01/05/2017 8:32 PM CDT GLUCOSE POC Routine 01/05/2017 4:55 PM CDT GLUCOSE POC Routine 01/05/2017 11:48 AM CDT GLUCOSE POC Routine 01/05/2017 6:42 AM CDT GLUCOSE POC Routine 01/05/2017 2:59 AM CDT GLUCOSE POC Routine 01/04/2017 8:24 PM CDT THORACOLUMBAR SPINE COMPUTED TOMOGRAPHY (CT) WITHOUT CONTRAST Routine 01/04/2017 5:55 PM CDT GLUCOSE POC Routine 01/04/2017 5:17 PM CDT GLUCOSE POC Routine 01/04/2017 1:11 PM CDT GLUCOSE POC Routine 01/04/2017 6:36 AM CDT GLUCOSE POC Routine 01/04/2017 4:24 AM CDT VITAMIN D 25 HYDROXY Routine 01/04/2017 4:24 AM CDT PTH Routine 01/04/2017 4:24 AM CDT LACTATE DEHYDROGENASE Routine 01/04/2017 4:24 AM CDT CREATINE KINASE (CK), TOTAL Routine 01/04/2017 4:24 AM CDT CANCELED MRI STUDY Routine 01/03/2017 9: 49 PM CDT GLUCOSE POC Routine 01/03/2017 9:34 PM CDT XR TIBIA FIBULA 2 VW Routine 01/03/2017 6:54 PM CDT XR TIBIA FIBULA 2 VW Routine 01/03/2017 6:54 PM CDT GLUCOSE POC Routine 01/03/2017 4:54 PM CDT GLUCOSE POC Routine 01/03/2017 12:05 PM CDT GLUCOSE POC Routine 01/03/2017 6:14 AM CDT GLUCOSE POC Routine 01/03/2017 3:10 AM CDT LOWER EXTREMITY VENOUS DOPPLER Routine 01/02/2017 11:01 PM CDT GLUCOSE POC Routine 01/02/2017 10:26 PM CDT GLUCOSE POC Routine 01/02/2017 9:16 PM CDT EGFR STAT 01/02/2017 5:10 PM CDT CBC WITHOUT DIFFERENTIAL STAT 01/02/2017 5:10 PM CDT COMPREHENSIVE METABOLIC PANEL STAT 01/02/2017 5:10 PM CDT documented in this encounter Results * (ABNORMAL) Glucose POC (01/07/2017 12:30 PM CDT) Glucose, POC 238(H) 70 - 199 mg/dL [facility] Blood specimen (specimen) 01/07/2017 12:30 PM CDT 01/07/2017 12:30 PM CDT Porfirio Riley MD POINT OF CARE TEST O RDERABLES Final Result Performing Organization Address City/[facility]/ZIP Co de Phone Number MARY JANE [phone] [address] [place] [address] * Glucose POC (01/07/2017 6:28 AM CDT) Glucose, POC 152 70 - 199 mg/dL [facility] Blood specimen (specimen) 01/07/2017 6:28 AM CDT 01/07/2017 6:28 AM CDT Porfirio Riley MD POINT OF CARE TEST O RDERABLES Final Result MARY JANE [phone] [address] [place] [address] * Glucose POC (01/07/2017 4:07 AM CDT) Glucose, POC 137 70 - 199 mg/dL [facility] Blood specimen (specimen) 01/07/2017 4:07 AM CDT 01/07/2017 4:07 AM CDT Porfriiolashawn Riley MD POINT OF CARE TEST O RDERABLES Final Result Performing Organization Address [facility] Co de Phone Number MARY JANE ARNOLD [phone] [address] [place] [address] * DISCHARGE LABORATORY CUMULATIVE REPORT (01/07/2017 12:00 AM CDT) Narrative 01/07/2017 12:00 AM CDT Ordered by an unspecified provider. Historical Provider MD LAB BLOOD ORDERABLES Deann l Result * Glucose POC (01/06/2017 8:55 PM CDT) Glucose, POC 188 70 - 199 mg/dL [facility] Blood specimen (specimen) 01/06/2017 8:55 PM CDT 01/06/2017 8:55 PM CDT Porfirio Riley MD POINT OF CARE TEST O RDERABLES Final Result Performing Organization Address [facility] Co de Phone Number MARY JANE ARNOLD [phone] [address] [place] [address] * Glucose POC (01/06/2017 4:52 PM CDT) Glucose, POC 151 70 - 199 mg/dL [facility] Blood specimen (specimen) 01/06/2017 4:52 PM CDT 01/06/2017 4:52 PM CDT Porfirio Riley MD POINT OF CARE TEST O RDERABLES Final Result Performing Organization Address [facility] Co de Phone Number MARY JANE ARNOLD [phone] [address] Department [place] [address] * Glucose POC (01/06/2017 11:52 AM CDT) Glucose, POC 154 70 - 199 mg/dL [facility] Blood specimen (specimen) 01/06/2017 11:52 AM CDT 01/06/2017 11:52 AM CDT us Porfirio Riley MD POINT OF CARE TEST O RDERABLES Final Result Performing Organization Address [facility] de Phone Number MARY JANE [phone] [address] [facility] [place] [address] * Glucose POC (01/06/2017 6:29 AM CDT) Glucose, POC 152 70 - 199 mg/dL [facility] Blood specimen (specimen) 01/06/2017 6:29 AM CDT 01/06/2017 6:29 AM CDT us Porfirio Riley MD POINT OF CARE TEST O RDERABLES Final Result Performing Organization Address [facility] de Phone Number MARY JANE [phone] [place] [address] * Glucose POC (01/06/2017 3:08 AM CDT) Glucose, POC 176 70 - 199 mg/dL [facility] Blood specimen (specimen) 01/06/2017 3:08 AM CDT 01/06/2017 3:08 AM CDT us Porfirio Riley MD POINT OF CARE TEST O RDERABLES Final Result Performing Organization Address [facility] de Phone Number MARY JANE [phone] [place] [address] * (ABNORMAL) Glucose POC (01/05/2017 8:32 PM CDT) Glucose, POC 309(H) 70 - 199 mg/dL [facility] Blood specimen (specimen) 01/05/2017 8:32 PM CDT 01/05/2017 8:32 PM CDT us Porfirio Riley MD POINT OF CARE TEST O RDERABLES Final Result Performing Organization Address [facility] Co de Phone Number MARY JANE ARNOLD [phone] [address] [facility] [place] [address] * Glucose POC (01/05/2017 4:55 PM CDT) Glucose, POC 183 70 - 199 mg/dL [facility] Blood specimen (specimen) 01/05/2017 4:55 PM CDT 01/05/2017 4:55 PM CDT Porfirio Riley MD POINT OF CARE TEST O RDERABLES Final Result Performing Organization Address [facility] Co de Phone Number MARY JANE ARNOLD [phone] [place] [address] * Glucose POC (01/05/2017 11:48 AM CDT) Glucose, POC 180 70 - 199 mg/dL [facility] Blood specimen (specimen) 01/05/2017 11:48 AM CDT 01/05/2017 11:48 AM CDT Porfirio Riley MD POINT OF CARE TEST O RDERABLES Final Result Performing Organization Address [facility] Co de Phone Number MARY JANE RANOLD [phone] [address] [facility] [place] [address] * Glucose POC (01/05/2017 6:42 AM CDT) Glucose, POC 154 70 - 199 mg/dL [facility] Blood specimen (specimen) 01/05/2017 6:42 AM CDT 01/05/2017 6:42 AM CDT Porfirio Riley MD POINT OF CARE TEST O RDERABLES Final Result Performing Organization Address [facility] Co de Phone Number MARY JANE ARNOLD [phone] [address] [facility] [place] [address] * (ABNORMAL) Glucose POC (01/05/2017 2:59 AM CDT) Glucose, POC 214(H) 70 - 199 mg/dL [facility] Blood specimen (specimen) 01/05/2017 2:59 AM CDT 01/05/2017 2:59 AM CDT Porfirio Riley MD POINT OF CARE TEST O RDERABLES Final Result Performing Organization Address [facility] de Phone Number [facility] [id number] [address] [facility] [place] [address] * (ABNORMAL) Glucose POC (01/04/2017 8:24 PM CDT) Glucose, POC 227(H) 70 - 199 mg/dL [facility] Blood specimen (specimen) 01/04/2017 8:24 PM CDT 01/04/2017 8:24 PM CDT Porfirio Riley MD POINT OF CARE TEST O RDERABLES Final Result Performing Organization Address [facility] de Phone Number [facility] [id number] [address] [facility] [place] [address] * THORACOLUMBAR SPINE COMPUTED TOMOGRAPHY (CT) WITHOUT CONTRAST (01/04/2017 5:55 PM CDT) Anatomical Region Laterality Modality N/A Computed Tomogra phy 01/04/2017 5:55 PM CDT Narrative 01/04/2017 5:55 PM CDT DATE OF EXAM: ??Jan 04 2017 12:55PM Acc#: ??[id number] ??ECT 0097 - CT Thoracic and Lumbar Spine WO ?? DIAGNOSIS: ??ACUTE LEG PAIN,LEFT CLINICAL HISTORY: ?? spinal pain RESULT: EXAMINATION: CT Thoracic and Lumbar Spine WO dated 01/04/2017 12:55 PM HISTORY: 61-year-old woman history of breast carcinoma TECHNIQUE: Spiral CT with multiplanar reconstructions FINDINGS: Thoracic spine demonstrates normal alignment without subluxation or compression fracture. ??Right convexity upper thoracic scoliosis. Multilevel degenerative changes with prominent spurs seen along the right lateral aspect of the spine. ??The visible bony destructive lesions are seen. ??Vacuum disc phenomenon at multiple levels. ??No evidence of disc herniation. ??No spinal or foraminal stenosis. Limited views of the lungs demonstrate no infiltrates or fluid. Lumbar spine demonstrates normal alignment. ??Narrowing of the L3-L4 and L4-L5 disc spaces is seen. ??There is a bulge at L5-S1. ??Severe facet joint arthropathy is seen at L5-S1 with moderate facet joint disease through the remaining lumbar spine. ??Degeneration is seen at the sacroiliac joints. ??No visible bone destruction is seen. ??No paraspinous masses are seen. IMPRESSION: DEGENERATIVE CHANGES IN THE THORACIC AND LUMBAR SPINE. ??NO BONE DESTRUCTION OR SCLEROTIC LESIONS SEEN. Electronically signed by: Linsey Quigley M.D. ? STEAM ROLLER OPERATOR: ??PSC TRANSCRIBE DATE/TIME: ??Jan 05 2017 ??9:47A RADIOLOGIST: ??LINSEY QUIGLEY M.D. ??READ ON: ??Jan 05 2017 ??9:49A ORDERING DR: PORFIRIO RILEY M.D. THIS DOCUMENT HAS BEEN ELECTRONICALLY SIGNED BY: ??LIANNA Varela, LINSEY ??ON: ??Jan 05 2017 ??9:47A Attending: ??KIM, ??PORFIRIO Requesting: ??KIM, ??PORFIRIO Requesting Fax: ??[phone] Attending Fax: ??[phone] Attending ID: ??[id number] Requesting ID: ??[id number] Report To 1 ID: ?? Report To 1 Name: ??, ?? Report To 1 FAX: ??-- Report To 2 ID: ?? Report To 2 Name: ??, ?? Report To 2 FAX: ??-- Next[employer] Order #: ?? Procedure Note Miscellaneous, Not In File / Provider, MD Tyler - 01/05/2017 DATE OF EXAM: Jan 04 2017 12:55PM Acc#: [id number] ECT 0097 - CT Thoracic and Lumbar Spine WO DIAGNOSIS: ACUTE LEG PAIN,LEFT CLINICAL HISTORY: spinal pain RESULT: EXAMINATION: CT Thoracic and Lumbar Spine WO dated 01/04/2017 12:55 PM HISTORY: 61-year-old woman history of breast carcinoma TECHNIQUE: Spiral CT with multiplanar reconstructions FINDINGS: Thoracic spine demonstrates normal alignment without subluxation or compression fracture. Right convexity upper thoracic scoliosis. Multilevel degenerative changes with prominent spurs seen along the right lateral aspect of the spine. The visible bony destructive lesions are seen. Vacuum disc phenomenon at multiple levels. No evidence of disc herniation. No spinal or foraminal stenosis. Limited views of the lungs demonstrate no infiltrates or fluid. Lumbar spine demonstrates normal alignment. Narrowing of the L3-L4 and L4-L5 disc spaces is seen. There is a bulge at L5-S1. Severe facet joint arthropathy is seen at L5-S1 with moderate facet joint disease through the remaining lumbar spine. Degeneration is seen at the sacroiliac joints. No visible bone destruction is seen. No paraspinous masses are seen. IMPRESSION: DEGENERATIVE CHANGES IN THE THORACIC AND LUMBAR SPINE. NO BONE DESTRUCTION OR SCLEROTIC LESIONS SEEN. Electronically signed by: Linsey Quigley M.D. STEAM ROLLER OPERATOR: [employer] TRANSCRIBE DATE/TIME: Jan 05 2017 9:47A RADIOLOGIST: LINSEY QUIGLEY M.D. READ ON: Jan 05 2017 9:49A ORDERING DR: PORFIRIO RILEY M.D. THIS DOCUMENT HAS BEEN ELECTRONICALLY SIGNED BY: LINSEY QUIGLEY M.D. ON: Jan 05 2017 9:47A Attending: PORFIRIO RILEY Requesting: PORFIRIO RILEY Requesting Attending Attending ID: [id number] Requesting ID: [id number] Report To 1 ID: Report To 1 Name: , Report To 1 FAX: -- Report To 2 ID: Report To 2 Name: , Report To 2 FAX: -- NextGen Order #: Porfirio Riley MD IMG CT PROCEDURES Ed ited Result - Final * (ABNORMAL) Glucose POC (01/04/2017 5:17 PM CDT) Glucose, POC 230(H) 70 - 199 mg/dL [facility] Blood specimen (specimen) 01/04/2017 5:17 PM CDT 01/04/2017 5:17 PM CDT Porfirio Riley MD POINT OF CARE TEST O RDERABLES Final Result Performing Organization Address [facility] Co de Phone Number MARY JANE [address] [place] [address] * Glucose POC (01/04/2017 1:11 PM CDT) Glucose, POC 126 70 - 199 mg/dL [facility] Blood specimen (specimen) 01/04/2017 1:11 PM CDT 01/04/2017 1:11 PM CDT Porfirio Riley MD POINT OF CARE TEST O RDERABLES Final Result Performing Organization Address [facility] de Phone Number [facility] [address] [place] [address] * Glucose POC (01/04/2017 6:36 AM CDT) Glucose, POC 180 70 - 199 mg/dL [facility] Blood specimen (specimen) 01/04/2017 6:36 AM CDT 01/04/2017 6:36 AM CDT Porfirio Riley MD POINT OF CARE TEST O RDERABLES Final Result Performing Organization Address [facility] de Phone Number [facility] [address] [place] [address] * (ABNORMAL) Vitamin D 25 hydroxy (01/04/2017 4:24 AM CDT) Vitamin D 25-OH 28(L) 30 - 80 ng/mL [facility] Blood specimen (specimen) 01/04/2017 4:24 AM CDT 01/04/2017 4:54 AM CDT Porfirio Riley MD LAB BLOOD ORDERABLES Final Result Performing Organization Address [facility] de Phone Number [facility] [address] [place] [address] * PTH, intact (01/04/2017 4:24 AM CDT) PTH 44 12 - 65 pg/mL [facility] Comment: Interpretive Data In the presence of normal renal function and hypercalcemia, a PTH level of >65 pg/ml is highly suggestive of primary hyperparathyroidism. Current interpretive data was last revised 2015 Blood specimen (specimen) 01/04/2017 4:24 AM CDT 01/04/2017 4:54 AM CDT Porfirio Riley MD LAB BLOOD ORDERABLES Final Result Performing Organization Address [facility] de Phone Number [facility] [address] [place] [address] * Creatine kinase (CK), total (01/04/2017 4:24 AM CDT) CK 54 30 - 220 Units/L [facility] Blood specimen (specimen) 01/04/2017 4:24 AM CDT 01/04/2017 4:54 AM CDT Porfirio Riley MD LAB BLOOD ORDERABLES Final Result Performing Organization Address [facility] de Phone Number [facility] [address] [place] [address] * Lactate dehydrogenase (LD) (01/04/2017 4:24 AM CDT) Lactate dehydrogenase (LDH) 131 100 - 220 Units/L [facility] Blood specimen (specimen) 01/04/2017 4:24 AM CDT 01/04/2017 4:54 AM CDT Porfirio Riley MD LAB BLOOD ORDERABLES Final Result Performing Organization Address [facility]/ZIP Co de Phone Number MARY JANE ARNOLD [address] Department [place] [address] * Glucose POC (01/04/2017 4:24 AM CDT) Glucose, POC 186 70 - 199 mg/dL MARY JANE Blood specimen (specimen) 01/04/2017 4:24 AM CDT 01/04/2017 4:24 AM CDT us Porfirio Riley MD POINT OF CARE TEST O RDERABLES Final Result Performing Organization Address [facility] de Phone Number MARY JANE ARNOLD [address] Department [place] [address] * CANCELED MRI STUDY (01/03/2017 9:49 PM CDT) Anatomical Region Laterality Modality N/A Magnetic Resonan ce 01/03/2017 9:49 PM CDT Narrative 01/03/2017 9:49 PM CDT DATE OF EXAM: ??Jan 03 2017 ??4:49PM Acc#: ??[id number] ??EMR 0000 - Cancelled MRI Study ?? DIAGNOSIS: ??ACUTE LEG PAIN,LEFT CLINICAL HISTORY: ?? rule out spine mets from breast cancer RESULT: Your patient's Radiology Procedure, scheduled for today, has been CANCELED due to the following:HABITUS. Your patient has not been charged for any services. ??You will not be receiving a Radiologist's interpretation for the expected study. ??Please feel free to contact the Radiology Department with any questions you may have regarding the above. ??We will be happy to assist with rescheduling your patient or alternative imaging options. IMPRESSION: ?Thank you, The Radiology Department at [facility] STEAM ROLLER OPERATOR: ?? TRANSCRIBE DATE/TIME: ??Jan 03 2017 ??4:50P RADIOLOGIST: ?INFORMATION SYSTEM RADIOLOGY M.D. ??READ ON: ??Jan 03 2017 ?? 4:50P ORDERING DR: PORFIRIO RILEY M.D. THIS DOCUMENT HAS BEEN ELECTRONICALLY SIGNED BY: ??INFORMATION SYSTEM RADIOLOGY Avery, ?ON: ??Jan 03 2017 ??4:50P Attending: ??KIM, ??PORFIRIO Requesting: ??KIM, ??PORFIRIO Requesting Fax: ??[phone] Attending Fax: ??[phone] Attending ID: ??[id number] Requesting ID: ??[id number] Report To 1 ID: ?? Report To 1 Name: ??, ?? Report To 1 FAX: ??-- Report To 2 ID: ?? Report To 2 Name: ??, ?? Report To 2 FAX: ??-- NextGen Order #: ?? Procedure Note Miscellaneous, Not In File - 01/03/2017 DATE OF EXAM: Jan 03 2017 4:49PM Acc#: [id number] EMR 0000 - Cancelled MRI Study DIAGNOSIS: ACUTE LEG PAIN,LEFT CLINICAL HISTORY: rule out spine mets from breast cancer RESULT: Your patient's Radiology Procedure, scheduled for today, has been CANCELED due to the following:HABITUS. Your patient has not been charged for any services. You will not be receiving a Radiologist's interpretation for the expected study. Please feel free to contact the Radiology Department with any questions you may have regarding the above. We will be happy to assist with rescheduling your patient or alternative imaging options. IMPRESSION: Thank you, The Radiology Department at [facility] STEAM ROLLER OPERATOR: TRANSCRIBE DATE/TIME: Jan 03 2017 4:50P RADIOLOGIST: SYSTEM RADIOLOGY Avery READ ON: Jan 03 2017 4:50P ORDERING DR: PORFIRIO RILEY M.D. THIS DOCUMENT HAS BEEN ELECTRONICALLY SIGNED BY: INFORMATION SYSTEM RADIOLOGY Avery, ON: Jan 03 20174:50P Attending: PORFIRIO RILEY Requesting: PORFIRIO RILEY Requesting Attending Attending ID: [id number] Requesting ID: [id number] Report To 1 ID: Report To 1 Name: , Report To 1 FAX: -- Report To 2 ID: Report To 2 Name: , Report To 2 FAX: -- NextGen Order #: Porfirio Riley MD IMG MRI PROCEDURES F inal Result * (ABNORMAL) Glucose POC (01/03/2017 9:34 PM CDT) Glucose, POC 219(H) 70 - 199 mg/dL MARY JANE ARNOLD Blood specimen (specimen) 01/03/2017 9:34 PM CDT 01/03/2017 9:34 PM CDT Porfirio Riley MD POINT OF CARE TEST O RDERABLES Final Result MARY JANE ARNOLD [address] Department [place] [address] * XR Tibia Fibula 2 VW (01/03/2017 6:54 PM CDT) Anatomical Region Laterality Modality N/A Radiographic Lizeth ging 01/03/2017 6:54 PM CDT Narrative 01/03/2017 6:54 PM CDT DATE OF EXAM: ??Jan 03 2017 ??1:54PM Acc#: ??[id number] ??EDX 0339 - XR Tibia/Fibula 2 Views L ?? DIAGNOSIS: ??ACUTE LEG PAIN,LEFT CLINICAL HISTORY: ?? bilateral leg pain RESULT: EXAMINATION: XR Tibia/Fibula 2 Views L HISTORY: Bilateral leg pain, no injury, sudden onset FINDINGS: Degenerative changes are seen at the knee joint particularly involving the medial joint space. ??No fracture or dislocation. IMPRESSION: Degenerative disease Electronically signed by: Linsey Quigley M.D. ? STEAM ROLLER OPERATOR: ??PSC TRANSCRIBE DATE/TIME: ??Jan 03 2017 ??3:19P RADIOLOGIST: ??LINSEY QUIGLEY M.D. ??READ ON: ??Jan 03 2017 ??3:21P ORDERING DR: WILLIAMS CRONIN M.D. THIS DOCUMENT HAS BEEN ELECTRONICALLY SIGNED BY: ??LINSEY QUIGLEY M.D. ??ON: ??Jan 03 2017 ??3:19P Attending: ??KIM, ??PORFIRIO Requesting: ??TOMMIE, ??WILLIAMS Requesting Fax: ??[phone] Attending Fax: ??[phone] Attending ID: ??[id number] Requesting ID: ??[id number] Report To 1 ID: ?? Report To 1 Name: ??, ?? Report To 1 FAX: ??-- Report To 2 ID: ?? Report To 2 Name: ??, ?? Report To 2 FAX: ??-- NextGen Order #: ?? Procedure Note Miscellaneous, Not In File / Provider, MD Tyler - 01/03/2017 DATE OF EXAM: Jan 03 2017 1:54PM Acc#: [id number] EDX 0339 - XR Tibia/Fibula 2 Views L DIAGNOSIS: ACUTE LEG PAIN,LEFT CLINICAL HISTORY: bilateral leg pain RESULT: EXAMINATION: XR Tibia/Fibula 2 Views L HISTORY: Bilateral leg pain, no injury, sudden onset FINDINGS: Degenerative changes are seen at the knee joint particularly involving the medial joint space. No fracture or dislocation. IMPRESSION: Degenerative disease Electronically signed by: Linsey Quigley M.D. STEAM ROLLER OPERATOR: PSC TRANSCRIBE DATE/TIME: Jan 03 2017 3:19P RADIOLOGIST: LINSEY QUIGLEY M.D. READ ON: Jan 03 2017 3:21P ORDERING DR: WILLIAMS CRONIN M.D. THIS DOCUMENT HAS BEEN ELECTRONICALLY SIGNED BY: LINSEY QUIGLEY M.D. ON: Jan 03 2017 3:19P Attending: PORFIRIO RILEY Requesting: WILLIAMS CRONIN Requesting Attending Attending ID: [id number] Requesting ID: [id number] Report To 1 ID: Report To 1 Name: , Report To 1 FAX: -- Report To 2 ID: Report To 2 Name: , Report To 2 FAX: -- NextGen Order #: us Williams Cronin Jr., MD IMG XR PROCEDURES F inal Result * XR Tibia Fibula 2 VW (01/03/2017 6:54 PM CDT) Anatomical Region Laterality Modality N/A Radiographic Lizeth ging 01/03/2017 6:54 PM CDT Narrative 01/03/2017 6:54 PM CDT DATE OF EXAM: ??Jan 03 2017 ??1:54PM Acc#: ??[id number] ??EDX 0338 - XR Tibia/Fibula 2 Views R ?? DIAGNOSIS: ??ACUTE LEG PAIN,LEFT CLINICAL HISTORY: ?? bilateral leg pain RESULT: EXAMINATION: XR Tibia/Fibula 2 Views R ORDER DATE: 01/03/2017 1:54 PM HISTORY: 61-year-old woman leg pain acute in onset no given history of trauma FINDINGS: Right knee arthroplasty appears anatomically aligned. ??No fracture or dislocation is seen. ??No radiographic evidence of loosening or infection. ??Soft tissue swelling. IMPRESSION: NO ACUTE BONY FINDINGS Electronically signed by: Linsey Quigley M.D. ? STEAM ROLLER OPERATOR: ??PSC TRANSCRIBE DATE/TIME: ??Jan 03 2017 ??3:18P RADIOLOGIST: ??LINSEY QUIGLEY M.D. ??READ ON: ??Jan 03 2017 ??3:20P ORDERING DR: WILLIAMS CRONIN M.D. THIS DOCUMENT HAS BEEN ELECTRONICALLY SIGNED BY: ??LIANNA Varela, LINSEY ??ON: ??Jan 03 2017 ??3:18P Attending: ??KIM, ??PORFIRIO Requesting: ??TOMMIE, ??WILLIAMS Requesting Fax: ??[phone] Attending Fax: ??[phone] Attending ID: ??[id number] Requesting ID: ??[id number] Report To 1 ID: ?? Report To 1 Name: ??, ?? Report To 1 FAX: ??-- Report To 2 ID: ?? Report To 2 Name: ??, ?? Report To 2 FAX: ??-- NextGen Order #: ?? Procedure Note Miscellaneous, Not In File / Provider, MD Tyler - 01/03/2017 DATE OF EXAM: Jan 03 2017 1:54PM Acc#: [id number] EDX 0338 - XR Tibia/Fibula 2 Views R DIAGNOSIS: ACUTE LEG PAIN,LEFT CLINICAL HISTORY: bilateral leg pain RESULT: EXAMINATION: XR Tibia/Fibula 2 Views R ORDER DATE: 01/03/2017 1:54 PM HISTORY: 61-year-old woman leg pain acute in onset no given history of trauma FINDINGS: Right knee arthroplasty appears anatomically aligned. No fracture or dislocation is seen. No radiographic evidence of loosening or infection. Soft tissue swelling. IMPRESSION: NO ACUTE BONY FINDINGS Electronically signed by: Linsey Quigley M.D. STEAM ROLLER OPERATOR: PSC TRANSCRIBE DATE/TIME: Jan 03 2017 3:18P RADIOLOGIST: LINSEY QUIGLEY M.D. READ ON: Jan 03 2017 3:20P ORDERING DR: WILLIAMS CRONIN M.D. THIS DOCUMENT HAS BEEN ELECTRONICALLY SIGNED BY: LINSEY QUIGLEY M.D. ON: Jan 03 2017 3:18P Attending: PORFIRIO RILEY Requesting: WILLIAMS CRONIN Requesting Attending Attending ID: [id number] Requesting ID: [id number] Report To 1 ID: Report To 1 Name: , Report To 1 FAX: -- Report To 2 ID: Report To 2 Name: , Report To 2 FAX: -- NextGen Order #: us Williams Cronin Jr., MD IMG XR PROCEDURES F inal Result * Glucose POC (01/03/2017 4:54 PM CDT) Glucose, POC 144 70 - 199 mg/dL [facility] Blood specimen (specimen) 01/03/2017 4:54 PM CDT 01/03/2017 4:54 PM CDT us Porfirio Riley MD POINT OF CARE TEST O RDERABLES Final Result MARY JANE [address] Department [place] [address] * (ABNORMAL) Glucose POC (01/03/2017 12:05 PM CDT) Glucose, POC 210(H) 70 - 199 mg/dL [facility] Blood specimen (specimen) 01/03/2017 12:05 PM CDT 01/03/2017 12:05 PM CDT Porfirio Riley MD POINT OF CARE TEST O RDERABLES Final Result Performing Organization Address [facility] de Phone Number MARY JANE ARNOLD [address] [place] [address] * Glucose POC (01/03/2017 6:14 AM CDT) Glucose, POC 158 70 - 199 mg/dL MARY JANE Blood specimen (specimen) 01/03/2017 6:14 AM CDT 01/03/2017 6:14 AM CDT Porfirio Riley MD POINT OF CARE TEST O RDERABLES Final Result Performing Organization Address [facility] Phone Number BCPUJA ARNOLD [address] [place] [address] * Glucose POC (01/03/2017 3:10 AM CDT) Glucose, POC 140 70 - 199 mg/dL MARY JANE Blood specimen (specimen) 01/03/2017 3:10 AM CDT 01/03/2017 3:10 AM CDT Porfirio Riley MD POINT OF CARE TEST O RDERABLES Final Result Performing Organization Address [facility] de Phone Number MARY JANE ARNOLD [address] [place] [address] * LOWER EXTREMITY VENOUS DOPPLER (01/02/2017 11:01 PM CDT) Anatomical Region Laterality Modality N/A Ultrasound 01/02/2017 11:0 1 PM CDT Narrative 01/02/2017 11:01 PM CDT DATE OF EXAM: ??Jan 02 2017 ??6:01PM Acc#: ??[id number] ??CHV 0053 - VL/US Venous Low Ext L ?? DIAGNOSIS: ??ACUTE LEG PAIN,LEFT CLINICAL HISTORY: ?? Calf Pain RESULT: EXAMINATION: LEFT LOWER EXTREMITY VENOUS DUPLEX EXAM Date: 01/02/2017 6:01 PM History: Left leg pain Technique: A left lower extremity venous duplex imaging evaluation was performed using grayscale, color, and spectral images. Compression and augmentation maneuvers were performed. Findings: There is normal flow and compressibility within the left common femoral vein, deep femoral vein, and femoral vein. The proximal greater saphenous vein and the saphenofemoral junction demonstrated normal flow and compressibility. The popliteal and visualized portions of the infrapopliteal veins demonstrated flow and compressibility. IMPRESSION: No evidence of acute deep vein thrombosis in the left lower extremity. Electronically signed by: Prince Barcenas M.D. ? STEAM ROLLER OPERATOR: ??PSC TRANSCRIBE DATE/TIME: ??Jan 03 2017 ??7:50A RADIOLOGIST: ??PRINCE BARCENAS M.D. ??READ ON: ??Jan 03 2017 ??7:52A ORDERING DR: WILLIAMS GODFREY M.D. THIS DOCUMENT HAS BEEN ELECTRONICALLY SIGNED BY: ??SWAPNA Varela, PRINCE ??ON: ??Jan 03 2017 ??7:50A Attending: ??KIM, ??PORFIRIO Requesting: ??GILDA, ??WILLIAMS Requesting Fax: ??-- Attending Fax: ??[phone] Attending ID: ??[id number] Requesting ID: ??[id number] Report To 1 ID: ?? Report To 1 Name: ??, ?? Report To 1 FAX: ??-- Report To 2 ID: ?? Report To 2 Name: ??, ?? Report To 2 FAX: ??-- NextGen Order #: ?? Procedure Note Miscellaneous, Not In File / Provider, MD Tyler - 01/03/2017 DATE OF EXAM: Jan 02 2017 6:01PM Acc#: [id number] [facility] 0053 - VL/US Venous Low Ext L DIAGNOSIS: ACUTE LEG PAIN,LEFT CLINICAL HISTORY: Calf Pain RESULT: EXAMINATION: LEFT LOWER EXTREMITY VENOUS DUPLEX EXAM Date: 01/02/2017 6:01 PM History: Left leg pain Technique: A left lower extremity venous duplex imaging evaluation was performed using grayscale, color, and spectral images. Compression and augmentation maneuvers were performed. Findings: There is normal flow and compressibility within the left common femoral vein, deep femoral vein, and femoral vein. The proximal greater saphenous vein and the saphenofemoral junction demonstrated normal flow and compressibility. The popliteal and visualized portions of the infrapopliteal veins demonstrated flow and compressibility. IMPRESSION: No evidence of acute deep vein thrombosis in the left lower extremity. Electronically signed by: Prince Barcenas M.D. STEAM ROLLER OPERATOR: [employer] TRANSCRIBE DATE/TIME: Jan 03 2017 7:50A RADIOLOGIST: PRINCE BARCENAS M.D. READ ON: Jan 03 2017 7:52A ORDERING DR: WILLIAMS GODFREY M.D. THIS DOCUMENT HAS BEEN ELECTRONICALLY SIGNED BY: PRINCE BARCENAS M.D. ON: Jan 03 2017 7:50A Attending: PORFIRIO RILEY Requesting: WILLIAMS GODFREY Requesting Fax: -- Attending Attending ID: [id number] Requesting ID: [id number] Report To 1 ID: Report To 1 Name: , Report To 1 FAX: -- Report To 2 ID: Report To 2 Name: , Report To 2 FAX: -- NextGen Order #: us Williams Godfrey MD [facility] PROCEDURES Final Result * Glucose POC (01/02/2017 10:26 PM CDT) Glucose, POC 128 70 - 199 mg/dL MARY JANE Blood specimen (specimen) 01/02/2017 10:26 PM CDT 01/02/2017 10:26 PM CDT us Notinfile Unknown POINT OF CARE TEST ORDERABLES Final Result MARY JANE ARN[address] Department [place] [address] * Glucose POC (01/02/2017 9:16 PM CDT) Pathologist [facility] Glucose, POC 124 70 - 199 mg/dL [facility] Blood specimen (specimen) 01/02/2017 9:16 PM CDT 01/02/2017 9:16 PM CDT us Notinfile Unknown POINT OF CARE TEST ORDERABLES Final Result Performing Organization Address [facility] Co de Phone Number [facility] [address] Department [place] [address] * eGFR (01/02/2017 5:10 PM CDT) eGFR 88 mL/min/1.7 3 m2 [facility] Comment: Interpretive Data Reference Interval Normal ?>/= 90 mL/min/1.73m2 Mildly decreased* ? 60 - 89 mL/min/1.73m2 Mildly to moderately decreased ?45 - 59 mL/min/1.73m2 Moderately to severely decreased ??30 - 44 mL/min/1.73m2 Severely decreased ?15 - 29 mL/min/1.73m2 Kidney Failure ?< 15 ??mL/min/1.73m2 *Relative to young adult level If -Malian multiply value by 1.16. Estimated glomerular filtration [...] was last reviewed 2015. Blood specimen (specimen) 01/02/2017 5:10 PM CDT 01/02/2017 5:16 PM CDT us Williams Godfrey MD LAB BLOOD ORDERABLES Final Res ult Performing Organization Address [facility]/ZIP Co de Phone Number MARY JANE ARNOLD [address] Department [place] [address] * (ABNORMAL) Comprehensive metabolic panel (01/02/2017 5:10 PM CDT) Sodium 136 135 - 145 mmol/L [facility] Potassium, pl 4.2 3.5 - 5.1 mmol/L [facility] CO2 25 22 - 32 mmol/L [facility] BUN 15 8 - 24 mg/dL [facility] Glucose 171 70 - 199 mg/dL [facility] Creatinine 0.74 0.60 - 1.30 mg/dL [facility] Calcium 9.8 8.4 - 10.5 mg/dL [facility] Chloride 99(L) 100 - 114 mmol/L [facility] Albumin 3.3 3.2 - 4.8 g/dL [facility] AST 25 7 - 40 Units/L [facility] ALT 25 1 - 45 Units/L [facility] Alk phos 62 30 - 110 Units/L [facility] Bilirubin, total 0.40 0.10 - 1.30 mg/dL [facility] Protein, pl 7.8 6.0 - 8.3 g/dL [facility] Anion gap 16 8 - 16 mmol/L [facility] Blood specimen (specimen) 01/02/2017 5:10 PM CDT 01/02/2017 5:15 PM CDT us Williams Godfrey MD LAB BLOOD ORDERABLES Final Res ult MARY JANE ARNOLD [address] Department [place] [address] * (ABNORMAL) CBC without differential (01/02/2017 5:10 PM CDT) WBC 11.96(H) 3.80 - 9.90 K/cumm [facility] RBC 4.37 3.90 - 5.20 M/cumm [facility] Hgb 12.6 11.9 - 15.5 g/dL [facility] Hct 39.9 35.6 - 45.5 % [facility] MCV 91.3 81.3 - 96.4 fL [facility] MCH 28.8 27.1 - 33.3 pg [facility] MCHC 31.6(L) 32.3 - 35.7 g/dL [facility] RDW CV 14.0 11.1 - 14.9 % [facility] RDW SD 47.1 35.7 - 48.1 fL [facility] NRBC 0.0 0.0 - 0.2 % [facility] NRBC abs 0.00 0.00 - 0.01 K/cumm [facility] Plt 296 150 - 400 K/cumm [facility] MPV 10.1 9.1 - 12.3 fL [facility] Blood specimen (specimen) 01/02/2017 5:10 PM CDT 01/02/2017 5:15 PM CDT us Williams Godfrey MD LAB BLOOD ORDERABLES Final Res ult [facility] [address] Department [place] [address] documented in this encounter Visit Diagnoses Not on filedocumented in this encounter Care Teams Milk Collector Relationship Specialty Start Date End Date Lavonne Hathaway MD [facility] [place] [address] PCP - General 08/16/16 08/17/17 documented as of this encounter
--- OUTSIDE RECORDS SUMMARY | 2024-04-26 04:30 | XMS_ITS | Encounter Summary ---
Author Organization [facility] Address [address] [place] [address] Care Team Providers Care Prn Physical Therapist Name Role Phone Lavonne Hathaway MD Primary Care Provider [phone] Encounter Details Date Type Department Care Team (Late st Contact Info) Description 09/13/2016 Orders Only [facility] Hospitalists [address] [place] [address] [place] [address] [facility] [address] [place] [address] Social History Tobacco Use Types Packs/Day Years Used Date Smoking Tobacco: Former Alcohol Use Standard Drinks/Week Comments No 0 (1 standard drink = 0.6 oz pur e alcohol) Comments Unknown Sex and Gender Information Value Date Recorded Sex Assigned at Not on file Legal Sex Female 12:24 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 [employer]ID [employer] Gender Identity Not on file Sexual Orientation Not on file documented as of this encounter Plan of Treatment Not on file documented as of this encounter Procedures Procedure Name Priority Date/Time Associated Diagnosis Comments MAGNESIUM Routine 09/13/2016 8:30 AM CDT documented in this encounter Results * (ABNORMAL) Magnesium (09/13/2016 8:30 AM CDT) Magnesium 1.7(L) 1.8 - 2.6 mg/dL MARY JANE ARNOLD Blood specimen (specimen) 09/13/2016 8:30 AM CDT 09/13/2016 8:36 AM CDT us Bernardo Painter MD LAB BLOOD ORDERABLES Final Resul t MARY JANE ARNOLD [address] Department [place] [address] documented in this encounter Visit Diagnoses Not on filedocumented in this encounter Care Teams Prn Physical Therapist Relationship Specialty Start Date End Date Lavonne Hathaway MD [facility] [place] [address] PCP - General 08/16/16 08/17/17 documented as of this encounter
--- OUTSIDE RECORDS SUMMARY | 2024-04-26 04:30 | XMS_ITS | Encounter Summary ---
Author Organization [facility] Address [address] [facility] [address] [place] [address] Care Team Providers Care Barbed Wire Machine Operator Name Role Phone Lavonne Hathaway MD Primary Care Provider +1- [phone] Encounter Details Date Type Department Care Team (Late st Contact Info) Description 09/13/2016 Orders Only [facility] Hospitalists [address] [place] [address] [place] [address] [facility] [address] [place] [address] Social History Tobacco Use Types Packs/Day Years Used Date Smoking Tobacco: Former Alcohol Use Standard Drinks/Week Comments No 0 (1 standard drink = 0.6 oz pur e alcohol) Comments Unknown Sex and Gender Information Value Date Recorded Sex Assigned at Not on file 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 60 - 89 mL/min/1.73m2 Mildly to moderately decreased ?45 - 59 mL/min/1.73m2 Moderately to severely decreased ??30 - 44 mL/min/1.73m2 Severely decreased ?15 - 29 mL/min/1.73m2 Kidney Failure ?< 15 ??mL/min/1.73m2 *Relative to young adult level If -Italian multiply value by 1.16. Estimated glomerular filtration [...] was last reviewed 2015. Blood specimen (specimen) 09/13/2016 8:30 AM CDT 09/13/2016 8:39 AM CDT us Bernardo Painter MD LAB BLOOD ORDERABLES Final Resul t MARY JANE [id number] [address] Luna [place] [address] documented in this encounter Visit Diagnoses Not on filedocumented in this encounter Care Teams Barbed Wire Machine Operator Relationship Specialty Start Date End Date Lavonne Hathaway MD [address] [place] [address] [place] [address] PCP - General 08/16/16 08/17/17 documented as of this encounter
--- OUTSIDE RECORDS SUMMARY | 2024-04-26 04:30 | XMS_ITS | Encounter Summary ---
Author Organization [facility] Healthcare Address [address] [place] [address] Care Team Providers Care Paddock Judge Name Role Phone Lavonne Hathaway MD Primary Care Provider +1- [phone] Encounter Details Date Type Department Care Team (Late st Contact Info) Description 09/12/2016 Orders Only [facility] [phone] [place] [address] [id number] Social History Tobacco Use Types Packs/Day Years Used Date Smoking Tobacco: Former Alcohol Use Standard Drinks/Week Comments No 0 (1 standard drink = 0.6 oz pur e alcohol) Comments Unknown Sex and Gender Information Value Date Recorded Sex Assigned at Not on file 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 Gender Identity Not on file Sexual Orientation Not on file documented as of this encounter Plan of Treatment Not on file documented as of this encounter Procedures Procedure Name Priority Date/Time Associated Diagnosis Comments GLUCOSE POC Routine 09/12/2016 8:20 PM CDT documented in this encounter Results * (ABNORMAL) Glucose POC (09/12/2016 8:20 PM CDT) Glucose, POC 245(H) 70 - 199 mg/dL MARY JANE ARNOLD Blood specimen (specimen) 09/12/2016 8:20 PM CDT 09/12/2016 8:20 PM CDT us Leoncio Hawkins MD POINT OF CARE TEST ORDERABLES F inal Result MARY JANE ARNOLD [id number] [address] Department [place] [address] documented in this encounter Visit Diagnoses Not on filedocumented in this encounter Care Teams Paddock Judge Relationship Specialty Start Date End Date Lavonne Hathaway MD [facility] [place] [address] PCP - General 08/16/16 08/17/17 documented as of this encounter
--- OUTSIDE RECORDS SUMMARY | 2024-04-26 04:30 | XMS_ITS | Encounter Summary ---
Author Organization [facility] Address [address] [place] [address] Care Team Providers Care Credit Administrator Name Role Phone Lavonne Hathaway MD Primary Care Provider +1- [phone] Encounter Details Date Type Department Care Team (Late st Contact Info) Description 09/11/2016 Orders Only [facility] [phone] [place] [address] [facility] [address] [place] [address] Social History Tobacco Use Types Packs/Day Years Used Date Smoking Tobacco: Former Alcohol Use Standard Drinks/Week Comments No 0 (1 standard drink = 0.6 oz pur e alcohol) Comments Unknown Sex and Gender Information Value Date Recorded Sex Assigned at Not on file 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 0.00 - 0.14 ng/mL Indeterminate: ?0.15 - 0.50 ng/mL SD / Cardiac Muscle Damage: ? >0.50 ng/mL Current interpretive data was last reviewed 2015 Blood specimen (specimen) 09/11/2016 8:57 AM CDT 09/11/2016 9:24 AM CDT us Rosio Horton MD LAB BLOOD ORDERABLES Final Re sult MARY JANE [id number] [address] Department [place] [address] documented in this encounter Visit Diagnoses Not on filedocumented in this encounter Care Teams Credit Administrator Relationship Specialty Start Date End Date Lavonne Hathaway MD [facility] [place] [address] PCP - General 08/16/16 08/17/17 documented as of this encounter
--- OUTSIDE RECORDS SUMMARY | 2024-04-26 04:30 | XMS_ITS | Encounter Summary ---
Author Organization [facility] Healthcare Address [address] [place] [address] Care Team Providers Care Public Relations Player Name Role Phone Lavonne Hathaway MD Primary Care Provider +1- [phone] Encounter Details Date Type Department Care Team (Late st Contact Info) Description 09/13/2016 Orders Only [facility] [phone] [place] [address] [id number] Social History Tobacco Use Types Packs/Day Years Used Date Smoking Tobacco: Former Alcohol Use Standard Drinks/Week Comments No 0 (1 standard drink = 0.6 oz pur e alcohol) Comments Unknown Sex and Gender Information Value Date Recorded Sex Assigned at Not on file 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 Gender Identity Not on file Sexual Orientation Not on file documented as of this encounter Plan of Treatment Not on file documented as of this encounter Procedures Procedure Name Priority Date/Time Associated Diagnosis Comments GLUCOSE POC Routine 09/13/2016 7:07 AM CDT documented in this encounter Results * Glucose POC (09/13/2016 7:07 AM CDT) Glucose, POC 184 70 - 199 mg/dL MARY JANE ARNOLD Blood specimen (specimen) 09/13/2016 7:07 AM CDT 09/13/2016 7:07 AM CDT us Leoncio Hawkins MD POINT OF CARE TEST ORDERABLES F inal Result MARY JANE ARNOLD [address] [address] Department [place] [address] documented in this encounter Visit Diagnoses Not on filedocumented in this encounter Care Teams Public Relations Player Relationship Specialty Start Date End Date Lavonne Hathaway MD [facility] [place] [address] PCP - General 08/16/16 08/17/17 documented as of this encounter
--- OUTSIDE RECORDS SUMMARY | 2024-04-26 04:30 | XMS_ITS | Encounter Summary ---
Author Organization [facility] Healthcare Address [address] [place] [address] Care Team Providers Care Proj Engineer Name Role Phone Lavonne Hathaway MD Primary Care Provider +1- [phone] Encounter Details Date Type Department Care Team (Late st Contact Info) Description 09/12/2016 Orders Only [facility] [phone] [place] [address] [id number] Social History Tobacco Use Types Packs/Day Years Used Date Smoking Tobacco: Former Alcohol Use Standard Drinks/Week Comments No 0 (1 standard drink = 0.6 oz pur e alcohol) Comments Unknown Sex and Gender Information Value Date Recorded Sex Assigned at Not on file 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 Gender Identity Not on file Sexual Orientation Not on file documented as of this encounter Plan of Treatment Not on file documented as of this encounter Procedures Procedure Name Priority Date/Time Associated Diagnosis Comments GLUCOSE POC Routine 09/12/2016 5:06 PM CDT documented in this encounter Results * Glucose POC (09/12/2016 5:06 PM CDT) Glucose, POC 178 70 - 199 mg/dL MARY JANE ARNOLD Blood specimen (specimen) 09/12/2016 5:06 PM CDT 09/12/2016 5:06 PM CDT us Leoncio Hawkins MD POINT OF CARE TEST ORDERABLES F inal Result MARY JANE ARNOLD [address] [address] Department [place] [address] documented in this encounter Visit Diagnoses Not on filedocumented in this encounter Care Teams Proj Engineer Relationship Specialty Start Date End Date Lavonne Hathaway MD [facility] [place] [address] PCP - General 08/16/16 08/17/17 documented as of this encounter
--- OUTSIDE RECORDS SUMMARY | 2024-04-26 04:30 | XMS_ITS | Encounter Summary ---
Author Organization [facility] Address [address] [facility] [address] [place] [address] Care Team Providers Care Arch Cushion Skiving Machine Operator Name Role Phone Lavonne Hathaway MD Primary Care Provider +1- [phone] Encounter Details Date Type Department Care Team (Late st Contact Info) Description 09/13/2016 Orders Only [facility] Hospitalists [address] [place] [address] [place] [address] [facility] [address] [place] [address] Social History Tobacco Use Types Packs/Day Years Used Date Smoking Tobacco: Former Alcohol Use Standard Drinks/Week Comments No 0 (1 standard drink = 0.6 oz pur e alcohol) Comments Unknown Sex and Gender Information Value Date Recorded Sex Assigned at Not on file 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 Gender Identity Not on file Sexual Orientation Not on file documented as of this encounter Plan of Treatment Not on file documented as of this encounter Procedures Procedure Name Priority Date/Time Associated Diagnosis Comments THYROID FUNCTION CASCADE Routine 09/13/2016 8:30 AM CDT documented in this encounter Results * TSH cascade (09/13/2016 8:30 AM CDT) TSH 0.70 0.34 - 5.60 mcIUnit/mL MARY JANE ARNOLD Blood specimen (specimen) 09/13/2016 8:30 AM CDT 09/13/2016 8:36 AM CDT us Bernardo Painter MD LAB BLOOD ORDERABLES Edited Resu lt - Final MARY JANE ARNOLD [id number] [address] Department [place] [address] documented in this encounter Visit Diagnoses Not on filedocumented in this encounter Care Teams Arch Cushion Skiving Machine Operator Relationship Specialty Start Date End Date Lavonne Hathaway MD [address] [place] [address] PCP - General 08/16/16 08/17/17 documented as of this encounter
--- OUTSIDE RECORDS SUMMARY | 2024-04-26 04:30 | XMS_ITS | Encounter Summary ---
Author Organization [facility] Address [address] [facility] [address] [place] [address] Care Team Providers Care Bracelet Form Coverer Name Role Phone Lavonne Hathaway MD Primary Care Provider +1- [phone] Encounter Details Date Type Department Care Team (Late st Contact Info) Description 09/13/2016 Orders Only [facility] Hospitalists [address] [place] [address] [place] [address] 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 Gender Identity Not on file Sexual Orientation Not on file documented as of this encounter Plan of Treatment Not on file documented as of this encounter Procedures Procedure Name Priority Date/Time Associated Diagnosis Comments DIFFERENTIAL AUTO Routine 09/13/2016 8:3 0 AM CDT documented in this encounter Results * Differential, auto (09/13/2016 8:30 AM CDT) Neutrophil pct 65.3 % [facility] Imm gran pct 0.5 % [facility] Lymphocyte pct 22.4 % [facility] Monocyte pct 7.4 % [facility] Eosinophil pct 0.3 % [facility] Basophil pct 0.5 % [facility] Neutrophil abs 5.30 1.70 - 6.50 K/cumm [facility] Imm gran abs 0.04 0.00 - 0.10 K/cumm [facility] Lymphocyte abs 1.82 0.80 - 3.30 K/cumm [facility] Monocyte abs 0.60 0.20 - 0.80 K/cumm [facility] Eosinophil abs 0.32 0.00 - 0.50 K/cumm [facility] Basophil abs 0.04 0.00 - 0.10 K/cumm [facility] Blood specimen (specimen) 09/13/2016 8:30 AM CDT 09/13/2016 8:37 AM CDT us Bernardo Painter MD LAB BLOOD ORDERABLES Final Resul t MARY JANE [id number] [address] Luna Department of Laboratories [place] [id number] documented in this encounter Visit Diagnoses Not on filedocumented in this encounter Care Teams Bracelet Form Coverer Relationship Specialty Start Date End Date Lavonne Hathaway MD [address] [place] [address] [place] [address] PCP - General 08/16/16 08/17/17 documented as of this encounter
--- OUTSIDE RECORDS SUMMARY | 2024-04-26 04:30 | XMS_ITS | Encounter Summary ---
Author Organization [facility] Healthcare Address [address] [place] [address] Care Team Providers Care Talking Books Library Clerk Name Role Phone Lavonne Hathaway MD Primary Care Provider +1- [phone] Encounter Details Date Type Department Care Team (Late st Contact Info) Description 09/12/2016 Orders Only [facility] [phone] [place] [address] [id number] Social History Tobacco Use Types Packs/Day Years Used Date Smoking Tobacco: Former Alcohol Use Standard Drinks/Week Comments No 0 (1 standard drink = 0.6 oz pur e alcohol) Comments Unknown Sex and Gender Information Value Date Recorded Sex Assigned at Not on file 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 Gender Identity Not on file Sexual Orientation Not on file documented as of this encounter Plan of Treatment Not on file documented as of this encounter Procedures Procedure Name Priority Date/Time Associated Diagnosis Comments GLUCOSE POC Routine 09/12/2016 12:04 PM CDT documented in this encounter Results * Glucose POC (09/12/2016 12:04 PM CDT) Glucose, POC 156 70 - 199 mg/dL MARY JANE ARNOLD Blood specimen (specimen) 09/12/2016 12:04 PM CDT 09/12/2016 12:04 PM CDT us Leoncio Hawkins MD POINT OF CARE TEST ORDERABLES F inal Result MARY JANE ARNOLD [address] [address] [place] [address] documented in this encounter Visit Diagnoses Not on filedocumented in this encounter Care Teams Talking Books Library Clerk Relationship Specialty Start Date End Date Lavonne Hathaway MD [facility] [place] [address] PCP - General 08/16/16 08/17/17 documented as of this encounter
--- OUTSIDE RECORDS SUMMARY | 2024-04-26 04:30 | XMS_ITS | Encounter Summary ---
Author Organization [facility] Healthcare Address [address] [place] [address] Care Team Providers Care Puzzle Assembler Name Role Phone Lavonne Hathaway MD Primary Care Provider +1- [phone] Encounter Details Date Type Department Care Team (Late st Contact Info) Description 09/12/2016 Orders Only [facility] [phone] [place] [address] [id number] Social History Tobacco Use Types Packs/Day Years Used Date Smoking Tobacco: Former Alcohol Use Standard Drinks/Week Comments No 0 (1 standard drink = 0.6 oz pur e alcohol) Comments Unknown Sex and Gender Information Value Date Recorded Sex Assigned at Not on file 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 Gender Identity Not on file Sexual Orientation Not on file documented as of this encounter Plan of Treatment Not on file documented as of this encounter Procedures Procedure Name Priority Date/Time Associated Diagnosis Comments GLUCOSE POC Routine 09/12/2016 3:07 AM CDT documented in this encounter Results * (ABNORMAL) Glucose POC (09/12/2016 3:07 AM CDT) Glucose, POC 227(H) 70 - 199 mg/dL MARY JANE ARNOLD Blood specimen (specimen) 09/12/2016 3:07 AM CDT 09/12/2016 3:07 AM CDT us Leoncio Hawkins MD POINT OF CARE TEST ORDERABLES F inal Result MARY JANE ARNOLD [address] [address] Department [place] [address] documented in this encounter Visit Diagnoses Not on filedocumented in this encounter Care Teams Puzzle Assembler Relationship Specialty Start Date End Date Lavonne Hathaway MD [facility] [place] [address] PCP - General 08/16/16 08/17/17 documented as of this encounter
--- OUTSIDE RECORDS SUMMARY | 2024-04-26 04:30 | XMS_ITS | Encounter Summary ---
Author Organization [facility] Address [address] [place] [address] Care Team Providers Care Employment Specialist/Program Manager Name Role Phone Lavonne Hathaway MD Primary Care Provider [phone] Encounter Details Date Type Department Care Team (Latest Contact Info) Description 09/10/2016 8:49 PM CDT - 09/13/2016 6:20 PM CDT Hospital Encounter [facility] [id number] [place] [address] [place] [id number] [address] Discharge Disposition: Discharge to home or self care Social History Tobacco Use Types Packs/Day Years Used Date Smoking Tobacco: Former Alcohol Use Standard Drinks/Week Comments No 0 (1 standard drink = 0.6 oz pur e alcohol) Comments Unknown Sex and Gender Information Value Date Recorded Sex Assigned at Not on file 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 Gender Identity Not on file Sexual Orientation Not on file documented as of this encounter Last Filed Vital Signs Vital Sign Reading Time Taken Comments Blood Pressure 131/81 09/13/2016 3:22 PM CDT Pulse 84 09/13/2016 3:22 PM CDT Temperature - - Respiratory Rate - - Oxygen Saturation - - Inhaled Oxygen Concentration - - Weight 131.5 kg (289 lb 14.5 oz) 2016 11:05 AM CDT Height 152.4 cm (5') 09/11/2016 11:05 AM CDT Body Mass Index 56.62 09/11/2016 11:05 AM CDT documented in this encounter Discharge Summaries * Miscellaneous, Not In File - 09/13/2016 5:00 AM CDT DISCHARGE SUMMARY Patient: MOHSEN MARQUES Account: [id number] Room No: 822-02 : 1955 Patient Type: [facility] Attend.: Leoncio Hawkins M.D. Admit Date: 09/10/2016 Dict.: Bernardo Painter M.D. Disch. Date: 09/13/2016 DISCHARGE DIAGNOSES 1. Subjective shortness of breath/dyspnea on exertion not otherwise specified. 2. Abnormal urinalysis with urine culture demonstrating insignificant growth. 3. History of type 2 diabetes mellitus with hyperglycemia. 4. 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 5. History of obstructive sleep apnea. 6. History of restless legs syndrome. 7. History of breast cancer, status post bilateral mastectomies, radiation therapy, and on adjuvant tamoxifen. 8. History of hypertension. 9. Morbid obesity. PROCEDURES 1. Chest CT angiography. 2. Bilateral lower extremity venous Doppler ultrasound. 3. Echocardiogram CONSULTANTS None. HISTORY OF PRESENT ILLNESS Patient is a 61-year-old, morbidly obese, female with history of recurrent pulmonary embolism and deep vein thrombosis on chronic anticoagulation therapy with Xarelto, type 2 diabetes mellitus, nephrolithiasis, hypertension, restless legs syndrome, obstructive sleep apnea on nocturnal CPAP, and stage II ER positive and HER-2 negative breast cancer status post bilateral mastectomy, radiation therapy, and on adjuvant tamoxifen. The patient presented to the emergency room for reasons of subjective sense of shortness of breath, dyspnea on exertion that had been ongoing for several days. She also noted some vague chest discomfort associated with shortness of breath, slight dyspnea on exertion. Evaluation in the emergency room included a chest CT angiography that demonstrated no evidence of pulmonary embolism with no acute intrathoracic pathology noted. Bilateral lower extremity venous Doppler ultrasound demonstrated no evidence of deep vein thrombosis. She was found to have abnormal urinalysis. She was eventually admitted to the Hospitalist Service. For detailed History of Present Illness, please see admission H and P. HOSPITAL COURSE On admission, the patient was maintained on nebulized bronchodilator therapy and was continued on her routine medications. She remained clinically stable with no overt dyspnea noted throughout her clinical course. Serial cardiac enzymes were negative. An echocardiogram was performed that demonstrated normal left ventricular systolic function with no focal wall motion abnormalities, normal left ventricular size, and ejection fraction of 60%. Her urine culture demonstrated insignificant growth. The patient was maintained on empiric antibiotic coverage with Levaquin. She had remained clinically stable. Subjectively, she feels well and wishes to be discharged home. Her brief clinical course was uncomplicated. DISPOSITION PROGNOSIS Patient was discharged home in stable condition. DISCHARGE MEDICATIONS She was discharged on: 1. Combivent inhaler 2 puffs every 6 hours on as needed basis. 2. Ciprofloxacin 250 mg twice daily for additional 5 days. She is to resume her home medications includin. Exemestane 25 mg daily. 2. Lisinopril 20 mg daily. 3. Metformin with increased dose to 500 mg twice daily with meals. 4. Oxybutynin 5 mg daily. 5. Xarelto 20 mg daily. 6. Requip 5 mg daily at bedtime. 7. [place] 5/325 mg three times daily on as needed basis. She is to follow up with her primary care physician in 1 week for continued routine medical care and ongoing management of diabetes. Electronically Authenticated by: Bernardo Painter MD On 10/02/2016 10:31 AM CDT Avery Regalado/katelyn TD: 09/14/2016 20:50 documented in this encounter Medications at Time [...] Notes * Miscellaneous, Not In File - 09/10/2016 5:00 AM CDT HISTORY AND PHYSICAL Patient: MOHSEN MARQUES Account: [id number] Room No: 822-02 : 1955 Patient Type: [facility] Attend.: Leoncio Hawkins M.D. Admit Date: 09/10/2016 Dict.: Carmella Mancilla Disch. Date: 09/13/2016 CHIEF COMPLAINT Shortness of breath. HPI This is a 61-year-old female with a past medical history of stage II ER positive GA positive HER-2 breast cancer status post bilateral mastectomy and radiation therapy, recurrent pulmonary embolism, DVT, hypertension who presented to the emergency room for the above. Patient reports she has had worsening shortness of breath for the past several days associated with palpitations. She states her chest feels like it is fluttering. She is not able to catch her breath. She has been dyspneic, worse with exertion. She has also had a cough, urinary frequency. Denied any dysuria or burning with urination. She does have a history of recurrent pulmonary embolism last in July. Has been on Xarelto and has been compliant. She is also complaining of left calf pain. Denied any fevers or chills, nausea, vomiting, abdominal pain. She states, I just don't feel well. She presented to the emergency room for further evaluation. ER vital signs showed a temp of 98.3, pulse 102, respirations 20, blood pressure 143/88, room air O2 saturations 98%. Chest x-ray showed no acute disease. EKG showed sinus tachycardia rate of 108. CBC was unremarkable except for WBC of 11.8. BMP showed a sodium of 131, glucose 269. Troponins were negative x2. She had a urinalysis that showed glucose 2+, blood 2+, leukocyte esterase 2+, WBCs 15. TSH was normal. Free T4 was normal. BNP was normal. EKG showed sinus tachycardia rate of 108. In the emergency room she received IV fluids, morphine. She has been admitted to the telemetry floor for further evaluation. PAST MEDICAL HISTORY 1. Left breast cancer stage II status post bilateral mastectomies, radiation therapy on Xarelto. 2. Thyroid disease. 3. Recurrent pulmonary embolism and DVT. 4. Recurrent cellulitis. 5. Anxiety. 6. History of multiple ventral hernia mesh repair. 7. Nephrolithiasis. 8. Diabetes mellitus type 2. 9. Hypertension. 10. Restless legs syndrome. 11. Congestive heart failure per patient. 12. Right knee surgery. 13. Right oophorectomy. 14. History of tobacco abuse. ALLERGIES CEPHALOSPORINS, REGLAN AND ROCEPHIN. FAMILY HISTORY Strong history of malignancy; 2 sisters had breast cancer; brother had colon cancer; father had prostate cancer. SOCIAL HISTORY Patient denied any alcohol, tobacco or any illicit street drugs. HOME MEDICATIONS 1. Lisinopril 20 daily. 2. Ropinirole 5 mg daily. 3. Exemestane 25 daily. 4. Hydrocodone 5/325 t.i.d. p.r.n. 5. Metformin XR 500 daily. 6. Oxybutynin 5 mg daily. 7. Xarelto 20 mg daily. REVIEW OF SYSTEMS Fourteen-point review of systems is negative except as per HPI. PHYSICAL EXAMINATION Vital Signs: Blood pressure is 108/56, pulse 79, O2 saturations 95%. General: A 61-year-old female, weak appearing, in no acute distress. HEENT: Head normocephalic, atraumatic. PERRLA. EOMI. Conjunctivae is clear. Sclerae is anicteric. Nares are patent. No erythema or exudate. Mucous membranes are moist. Neck: Supple. No lymphadenopathy, JVD. Lungs: Clear to auscultation. Cardiovascular: Normal S1, S2. Abdomen: Obese, soft, nontender, nondistended with positive bowel sounds. Extremities: No clubbing, cyanosis, or edema. Positive left Homans sign. Neuro: Alert and oriented x3. LABORATORY DATA Pertinent abnormals mentioned in the HPI. ASSESSMENT AND PLAN All diagnoses present on admission. 1. Shortness of breath. Will rule out pulmonary embolism. Obtain CT of the chest. Continue Xarelto. Chest x-ray showed no acute disease. BNP was normal. 2. Palpitations. Heart rate on admission was 102. 3. Urinary tract infection. Will start IV Levaquin. Await cultures. 4. Diabetes mellitus type 2, uncontrolled. Check hemoglobin A1c. Follow sliding scale insulin. Hold metformin. 5. History of pulmonary embolism and deep venous thrombosis on Xarelto. 6. Hypertension. Blood pressure is stable. Continue lisinopril. 7. Obesity. Encouraged diet and weight loss program. 8. History of breast cancer status post radiation therapy, bilateral mastectomies. 9. Thyroid disease. Thyroid levels were normal. 10. DVT prophylaxis will be initiated. Electronically Authenticated by: Leoncio Hawkins MD On 09/12/2016 05:24 PM CDT Electronically Authenticated by: HUMAIRA Reyna On 09/29/2016 05:43 PM CDT Leoncio Hawkins M.D. Dictated by: Carmella Mancilla/katelyn TD: 09/11/2016 12:50 CC: Lavonne Hathaway M.D. documented in this encounter Plan of Treatment Not on file documented as of this encounter Procedures Procedure Name Priority Date/Time Associated Diagnosis Comments US ARTERIAL DOPPLER LOWER EXTREMITY COMPLETE Routine 09/12/2016 4:00 PM CDT PRE-PRELIMINARY CT SCAN REPORT Routine 09/11/2016 5:[address] CHEST W CONTRAST Routine 09/11/2016 5 :33 PM CDT XR CHEST PA LATERAL 2 VIEWS Routine 09/11/2016 2:53 AM CDT documented in this encounter Results * Vl US Arterial Doppler Lower Extremity Complete (09/12/2016 4:00 PM CDT) Anatomical Region Laterality Modality Vascular N/A Ultrasound 09/12/2016 4:0 0 PM CDT Narrative 09/12/2016 4:00 PM CDT DATE OF EXAM: ??Sep 12 2016 11:00AM Acc#: ??[id number] ??CHV 0013 - VL/US Venous Low Ext BI ?? DIAGNOSIS: ??EXERTIONAL SHORTNESS OF BREATH/OBESITY CLINICAL HISTORY: ?? right leg pain/sob RESULT: HISTORY: The patient is a 61-year-old female who presents with right leg pain and shortness of breath. TECHNIQUE: Bilateral lower extremity venous duplex study was performed. The posterior tibial and peroneal veins were poorly visualized. FINDINGS: There is normal compressibility, phasicity and augmentation in the right and the left common femoral, superficial femoral, deep femoral, popliteal, posterior tibial, peroneal and upper greater saphenous veins. Imaging of these veins reveals no thrombus within the lumen. IMPRESSION: There is no evidence of acute DVT in the right and the left lower extremity. Electronically signed by: Shira Gaspar M.D. ? TILTROTOR CREW CHIEF: ??[employer] TRANSCRIBE DATE/TIME: ??Sep 12 2016 11:26A RADIOLOGIST: ??SHIRA GASPAR M.D. ??READ ON: ??Sep 12 2016 11:31A ORDERING DR: DOMINIQUE Kenny THIS DOCUMENT HAS BEEN ELECTRONICALLY SIGNED BY: ??JAVY Varela, SHIRA ??ON: ??Sep 12 2016 11:26A Attending: ??DARLENE, ??LEONCIO Requesting: ??ANDREAS, ??DOMINIQUE Requesting Fax: ??-- Attending Fax: ??[phone] Attending ID: ??[id number] Requesting ID: ??[id number] Report To 1 ID: ?? Report To 1 Name: ??, ?? Report To 1 FAX: ??-- Report To 2 ID: ?? Report To 2 Name: ??, ?? Report To 2 FAX: ??-- NextGen Order #: ?? Procedure Note Miscellaneous, Not In File / Provider, MD Tyler - 09/18/2016 DATE OF EXAM: Sep 12 2016 11:00AM Acc#: [id number] [facility] 0013 - / Venous Low Ext BI DIAGNOSIS: EXERTIONAL SHORTNESS OF BREATH/OBESITY CLINICAL HISTORY: right leg pain/sob RESULT: HISTORY: The patient is a 61-year-old female who presents with right leg pain and shortness of breath. TECHNIQUE: Bilateral lower extremity venous duplex study was performed. The posterior tibial and peroneal veins were poorly visualized. FINDINGS: There is normal compressibility, phasicity and augmentation in the right and the left common femoral, superficial femoral, deep femoral, popliteal, posterior tibial, peroneal and upper greater saphenous veins. Imaging of these veins reveals no thrombus within the lumen. IMPRESSION: There is no evidence of acute DVT in the right and the left lower extremity. Electronically signed by: Shira Gaspar M.D. TILTROTOR CREW CHIEF: [employer] TRANSCRIBE DATE/TIME: Sep 12 2016 11:26A RADIOLOGIST: SHIRA GASPAR M.D. READ ON: Sep 12 2016 11:31A ORDERING DR: DOMINIQUE Kenny THIS DOCUMENT HAS BEEN ELECTRONICALLY SIGNED BY: SHIRA GASPAR M.D. ON: Sep 12 2016 11:26A Attending: LEONCIO HAWKINS Requesting: DOMINIQUE JOHNS Requesting Fax: -- Attending Attending ID: [id number] Requesting ID: [id number] Report To 1 ID: Report To 1 Name: , Report To 1 FAX: -- Report To 2 ID: Report To 2 Name: , Report To 2 FAX: -- NextGen Order #: us Not In File Miscellaneous IMG US PROCEDURES Deann l Result * CT Chest W Contrast (09/11/2016 5:33 PM CDT) Anatomical Region Laterality Modality Body N/A Computed Tomogra phy 09/11/2016 5:33 PM CDT Narrative 09/11/2016 5:33 PM CDT DATE OF EXAM: ??Sep 11 2016 12:33PM Acc#: ??[id number] ??ECT 0123 - CT Chest PE W ?? DIAGNOSIS: ??EXERTIONAL SHORTNESS OF BREATH/OBESITY CLINICAL HISTORY: ?? shortness of breath RESULT: HISTORY: The patient is a 61-year-old female who presents with shortness of breath. TECHNIQUE: Following the intravenous administration of 100 mL of Optiray 350 nonionic contrast, axial images were obtained through the thorax and viewed both at mediastinal and lung window settings. Following this coronal and oblique sagittal reconstructions were performed. ??Comparison made with the previous study dated 04/22/2014. FINDINGS: The right and left main pulmonary arteries are normal in appearance as are the major intrapulmonary branches. ??No filling defects seen within any of the pulmonary artery branches nor was any cutoff of these branches noted to indicate the presence of pulmonary emboli. ??The thoracic aorta is normal in appearance with no evidence of aortic dissection. ??Heart nor enlarged. ??No mediastinal lymphadenopathy. ??No pleural effusion noted. ??Limited axial images through the upper abdomen reveals the visualized portion of the liver, spleen, adrenals and pancreas to be unremarkable. Images in the coronal and oblique sagittal plane adds no further information. Images at lung window settings reveals no lung nodules or infiltrates. IMPRESSION: No evidence of pulmonary emboli or thoracic aortic dissection. Results transmitted at 12:40 PM Electronically signed by: Shira Gaspar M.D. ? TILTROTOR CREW CHIEF: ??[employer] TRANSCRIBE DATE/TIME: ??Sep 11 2016 12:40P RADIOLOGIST: ??SHIRA GASPAR M.D. ??READ ON: ??Sep 11 2016 12:44P ORDERING DR: DOMINIQUE Kenny THIS DOCUMENT HAS BEEN ELECTRONICALLY SIGNED BY: ??SHIRA GASPAR M.D. ??ON: ??Sep 11 2016 12:40P Attending: ??ONAGHISE, ??LEONCIO Requesting: ??ANDREAS, ??DOMINIQUE Requesting Fax: ??-- Attending Fax: ??[phone] Attending ID: ??[id number] Requesting ID: ??[id number] Report To 1 ID: ?? Report To 1 Name: ??, ?? Report To 1 FAX: ??-- Report To 2 ID: ?? Report To 2 Name: ??, ?? Report To 2 FAX: ??-- NextGen Order #: ?? Procedure Note Miscellaneous, Not In File / Provider, MD Tyler - 09/18/2016 DATE OF EXAM: Sep 11 2016 12:33PM Acc#: [id number] ECT 0123 - CT Chest PE W DIAGNOSIS: EXERTIONAL SHORTNESS OF BREATH/OBESITY CLINICAL HISTORY: shortness of breath RESULT: HISTORY: The patient is a 61-year-old female who presents with shortness of breath. TECHNIQUE: Following the intravenous administration of 100 mL of Optiray 350 nonionic contrast, axial images were obtained through the thorax and viewed both at mediastinal and lung window settings. Following this coronal and oblique sagittal reconstructions were performed. Comparison made with the previous study dated 04/22/2014. FINDINGS: The right and left main pulmonary arteries are normal in appearance as are the major intrapulmonary branches. No filling defects seen within any of the pulmonary artery branches nor was any cutoff of these branches noted to indicate the presence of pulmonary emboli. The thoracic aorta is normal in appearance with no evidence of aortic dissection. Heart nor enlarged. No mediastinal lymphadenopathy. No pleural effusion noted. Limited axial images through the upper abdomen reveals the visualized portion of the liver, spleen, adrenals and pancreas to be unremarkable. Images in the coronal and oblique sagittal plane adds no further information. Images at lung window settings reveals no lung nodules or infiltrates. IMPRESSION: No evidence of pulmonary emboli or thoracic aortic dissection. Results transmitted at 12:40 PM Electronically signed by: Shira Gaspar M.D. TILTROTOR CREW CHIEF: [employer] TRANSCRIBE DATE/TIME: Sep 11 2016 12:40P RADIOLOGIST: SHIRA GASPAR M.D. READ ON: Sep 11 2016 12:44P ORDERING DR: DOMINIQUE Kenny THIS DOCUMENT HAS BEEN ELECTRONICALLY SIGNED BY: SHIRA GASPAR M.D. ON: Sep 11 2016 12:40P Attending: LEONCIO HAWKINS Requesting: DOMINIQUE JOHNS Requesting Fax: -- Attending Attending ID: [id number] Requesting ID: [id number] Report To 1 ID: Report To 1 Name: , Report To 1 FAX: -- Report To 2 ID: Report To 2 Name: , Report To 2 FAX: -- NextGen Order #: us Not In File Miscellaneous IMG CT PROCEDURES Deann l Result * PRE-PRELIMINARY CT SCAN REPORT (09/11/2016 5:33 PM CDT) Anatomical Region Laterality Modality N/A Computed Tomogra phy 09/11/2016 5:33 PM CDT Narrative 09/11/2016 5:33 PM CDT [facility] STAT IMAGING PRELIMINARY RESULT CALL RESULTS: MOHSEN ??SHELLI IP STAT IMAGING PRELIMINARY RESULT [facility] PATIENT: ?? MOHSEN ??SHELLI MR#: ?? [id number] : 1955 AGE / SEX: ?? 61Y / F Procedure: ECT 0123 - CT Chest PE W Exam Date: ?? Sep 11 2016 12:33PM ?Loc: [id number] Acc#: ?? [id number] Pt_Class at Time of Procedure: I Current Pt Class and Location: ?? I ?ERD ? [id number] [facility] ??STAT Phone: [phone] ??Fax: [phone] Reason: ?? shortness of breath shortness of breath Order Comments: Ord : ?? DOMINIQUE ??ANDREAS ??F.N.P. Preliminary Reading Doctor: ??SHIRA GASPAR M.D., RADIOLOGIST Completed on: ??Sep 11 2016 12:40PM Call Results Info: Patient Waiting: Call Report to: Phone: Fax: Comments: ----- Please be advised this is a preliminary report. ??A final report is forthcoming. READ ANY COMMENTS BELOW Findings: ?Normal Comments Line 1: Comments Line 2: Comments Line 3: Comments Line 4: Comments Line 5: Procedure Note Miscellaneous, Not In File / Provider, MD Tyler - 09/18/2016 [facility] STAT IMAGING PRELIMINARY RESULT CALL RESULTS: MOHSEN MARQUES IP STAT IMAGING PRELIMINARY RESULT [facility] PATIENT: MOHSEN MARQUES MR#: [id number] : 1955 AGE / SEX: 61Y / F Procedure:ECT 0123 - CT Chest PE W Exam Date: Sep 11 2016 12:33PM Loc:[id number] Acc#: [id number] Pt_Class at Time of Procedure: I Current Pt Class and Location: [facility] [address] Requesting Location: [facility] Priority: STAT Phone: [phone] Fax: [phone] Reason: shortness of breath shortness of breath Order Comments: Ord Dr: DOMINIQUE Kenny Preliminary Reading Doctor: SHIRA GASPAR M.D., RADIOLOGIST Completed on: Sep 11 2016 12:40PM Call Results Info: Patient Waiting: Call Report to: Phone: Fax: Comments: ----- Please be advised this is a preliminary report. A final report isforthcoming. READ ANY COMMENTS BELOW Findings: Normal Comments Line 1: Comments Line 2: Comments Line 3: Comments Line 4: Comments Line 5: us Not In File Miscellaneous IMG CT PROCEDURES Daenn l Result * XR Chest Pa Lateral 2 Vw (09/11/2016 2:53 AM CDT) Anatomical Region Laterality Modality Body, Chest N/A Radiographic Lizeth ging 09/11/2016 2:53 AM CDT Narrative 09/11/2016 2:53 AM CDT DATE OF EXAM: ??Sep 10 2016 ??9:53PM Acc#: ??[id number] ??EDX 0167 - XR Chest 2 Views ?? DIAGNOSIS: ??HEART PALPATIONS ??AND SOB CLINICAL HISTORY: ?? Chest Pain RESULT: Examination: Chest, 2 views History: Shortness of breath Comparison: 05/22/2016 Findings: Heart size is normal. ??Aortic arch is moderately atherosclerotic. There is no pneumothorax or pleural effusion. There is no focal pulmonic consolidation. ??There are mild degenerative changes of thoracic spine. ??There is eventration of the right hemidiaphragmatic. IMPRESSION: 1. ??No acute cardiopulmonary abnormality. Electronically signed by: Gerson Khan M.D. ? TILTROTOR CREW CHIEF: ??[employer] TRANSCRIBE DATE/TIME: ??Sep 10 2016 10:48P RADIOLOGIST: ??GERSON KHAN M.D. ??READ ON: ??Sep 10 2016 10:52P ORDERING DR: TAYLOR BENEDICT M.D. THIS DOCUMENT HAS BEEN ELECTRONICALLY SIGNED BY: ??GERSON KHAN M.D. ??ON: ??Sep 10 2016 10:48P Attending: ??ALLISON, ??LAVONNE Requesting: ??JAK, ??TAYLOR Requesting Fax: ??[phone] Attending Fax: ??[phone] Attending ID: ??[id number] Requesting ID: ??[id number] Report To 1 ID: ?? Report To 1 Name: ??, ?? Report To 1 FAX: ??-- Report To 2 ID: ?? Report To 2 Name: ??, ?? Report To 2 FAX: ??-- NextGen Order #: ?? Procedure Note Miscellaneous, Not In File / Provider, MD Tyler - 09/18/2016 DATE OF EXAM: Sep 10 2016 9:53PM Acc#: [id number] EDX 0167 - XR Chest 2 Views DIAGNOSIS: HEART PALPATIONS AND SOB CLINICAL HISTORY: Chest Pain RESULT: Examination: Chest, 2 views History: Shortness of breath Comparison: 05/22/2016 Findings: Heart size is normal. Aortic arch is moderately atherosclerotic. There is no pneumothorax or pleural effusion. There is no focal pulmonic consolidation. There are mild degenerative changes of thoracic spine. There is eventration of the right hemidiaphragmatic. IMPRESSION: 1. No acute cardiopulmonary abnormality. Electronically signed by: Gerson Khan M.D. TILTROTOR CREW CHIEF: [employer] TRANSCRIBE DATE/TIME: Sep 10 2016 10:48P RADIOLOGIST: GERSON KHAN M.D. READ ON: Sep 10 2016 10:52P ORDERING DR: TAYLOR BENEDICT M.D. THIS DOCUMENT HAS BEEN ELECTRONICALLY SIGNED BY: GERSON KHAN M.D. ON: Sep 10 2016 10:48P Attending: LAVONNE COOPER Requesting: TAYLOR BENEDICT Requesting Attending Attending ID: [id number] Requesting ID: [id number] Report To 1 ID: Report To 1 Name: , Report To 1 FAX: -- Report To 2 ID: Report To 2 Name: , Report To 2 FAX: -- NextGen Order #: us Not In File Miscellaneous IMG XR PROCEDURES Deann l Result documented in this encounter Visit Diagnoses Not on filedocumented in this encounter Care Teams Employment Specialist/Program Manager Relationship Specialty Start Date End Date Lavonne Hathaway MD [address] [place] [address] [place] [address] PCP - General 08/16/16 08/17/17 documented as of this encounter
--- OUTSIDE RECORDS SUMMARY | 2024-04-26 04:30 | XMS_ITS | Encounter Summary ---
Author Organization [facility] Healthcare Address [address] [place] [address] Care Team Providers Care Coloring Room Man Name Role Phone Lavonne Hathaway MD Primary Care Provider +1- [phone] Encounter Details Date Type Department Care Team (Late st Contact Info) Description 09/13/2016 Orders Only Cerner Lab Interim [phone] [place] [address] [id number] Social History Tobacco Use Types Packs/Day Years Used Date Smoking Tobacco: Former Alcohol Use Standard Drinks/Week Comments No 0 (1 standard drink = 0.6 oz pur e alcohol) Comments Unknown Sex and Gender Information Value Date Recorded Sex Assigned at Not on file 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 Gender Identity Not on file Sexual Orientation Not on file documented as of this encounter Plan of Treatment Not on file documented as of this encounter Procedures Procedure Name Priority Date/Time Associated Diagnosis Comments GLUCOSE POC Routine 09/13/2016 3:08 AM CDT documented in this encounter Results * (ABNORMAL) Glucose POC (09/13/2016 3:08 AM CDT) Glucose, POC 231(H) 70 - 199 mg/dL MARY JANE ARNOLD Blood specimen (specimen) 09/13/2016 3:08 AM CDT 09/13/2016 3:08 AM CDT us Leoncio Hawkins MD POINT OF CARE TEST ORDERABLES F inal Result MARY JANE ARNOLD [address] Department [place] [address] documented in this encounter Visit Diagnoses Not on filedocumented in this encounter Care Teams Coloring Room Man Relationship Specialty Start Date End Date Lavonne Hathaway MD [facility] [place] [address] PCP - General 08/16/16 08/17/17 documented as of this encounter
--- OUTSIDE RECORDS SUMMARY | 2024-04-26 04:30 | XMS_ITS | Encounter Summary ---
Author Organization [facility] Healthcare Address [address] [place] [address] Care Team Providers Care Engineer Rf Deployment Name Role Phone Lavonne Hathaway MD Primary Care Provider +1- [phone] Encounter Details Date Type Department Care Team (Late st Contact Info) Description 09/12/2016 Orders Only Cerner Lab Interim [phone] Dorene Hernandez, GUN REPAIR CLERK [address] [address] Social History Tobacco Use Types Packs/Day Years Used Date Smoking Tobacco: Former Alcohol Use Standard Drinks/Week Comments No 0 (1 standard drink = 0.6 oz pur e alcohol) Comments Unknown Sex and Gender Information Value Date Recorded Sex Assigned at Not on file 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 Gender Identity Not on file Sexual Orientation Not on file documented as of this encounter Plan of Treatment Not on file documented as of this encounter Procedures Procedure Name Priority Date/Time Associated Diagnosis Comments DIFFERENTIAL AUTO Routine 09/12/2016 5:5 4 AM CDT documented in this encounter Results * Differential, auto (09/12/2016 5:54 AM CDT) Neutrophil pct 56.7 % [facility] Imm gran pct 0.5 % [facility] Lymphocyte pct 28.9 % [facility] Monocyte pct 9.8 % [facility] Eosinophil pct 0.3 % [facility] Basophil pct 0.4 % [facility] Neutrophil abs 4.16 1.70 - 6.50 K/cumm [facility] Imm gran abs 0.04 0.00 - 0.10 K/cumm [facility] Lymphocyte abs 2.12 0.80 - 3.30 K/cumm [facility] Monocyte abs 0.72 0.20 - 0.80 K/cumm [facility] Eosinophil abs 0.27 0.00 - 0.50 K/cumm [facility] Basophil abs 0.03 0.00 - 0.10 K/cumm [facility] Blood specimen (specimen) 09/12/2016 5:54 AM CDT 09/12/2016 6:37 AM CDT Dorene Hernandez GUN REPAIR CLERK LAB BLOOD ORDERABLES Deann bowman Result MARY JANE [address] Department of Laboratories [place] [id number] documented in this encounter Visit Diagnoses Not on filedocumented in this encounter Care Teams Engineer Rf Deployment Relationship Specialty Start Date End Date Lavonne Hathaway MD [facility] [place] [address] PCP - General 08/16/16 08/17/17 documented as of this encounter
--- OUTSIDE RECORDS SUMMARY | 2024-04-26 04:31 | XMS_ITS | Encounter Summary ---
Author Organization [facility] Healthcare Address [address] [place] [address] Care Team Providers Care Dictating Machine Mechanic Name Role Phone Lavonne Hathaway MD Primary Care Provider +1- [phone] Encounter Details Date Type Department Care Team (Late st Contact Info) Description 09/10/2016 Orders Only Cerner Lab Interim [phone] [place] [address] [facility] [address] [place] [address] Social History Tobacco Use Types Packs/Day Years Used Date Smoking Tobacco: Former Alcohol Use Standard Drinks/Week Comments No 0 (1 standard drink = 0.6 oz pur e alcohol) Comments Unknown Sex and Gender Information Value Date Recorded Sex Assigned at Not on file 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 Gender Identity Not on file Sexual Orientation Not on file documented as of this encounter Plan of Treatment Not on file documented as of this encounter Procedures Procedure Name Priority Date/Time Associated Diagnosis Comments CBC WITH AUTO DIFFERENTIAL STAT 09/10/2016 9:07 PM CDT documented in this encounter Results * (ABNORMAL) CBC with auto differential (09/10/2016 9:07 PM CDT) WBC 11.80(H) 3.80 - 9.90 K/cumm [facility] RBC 4.65 3.90 - 5.20 M/cumm [facility] Hgb 13.4 11.9 - 15.5 g/dL [facility] Hct 42.5 35.6 - 45.5 % [facility] MCV 91.4 81.3 - 96.4 fL [facility] MCH 28.8 27.1 - 33.3 pg [facility] MCHC 31.5(L) 32.3 - 35.7 g/dL [facility] RDW CV 14.1 11.1 - 14.9 % [facility] RDW SD 47.5 35.7 - 48.1 fL [facility] Plt 324 150 - 400 K/cumm [facility] MPV 9.9 9.1 - 12.3 fL [facility] NRBC 0.0 0.0 - 0.2 % [facility] NRBC abs 0.00 0.00 - 0.01 K/cumm [facility] Blood specimen (specimen) 09/10/2016 9:07 PM CDT 09/10/2016 9:10 PM CDT Erick Davis MD LAB BLOOD ORDERABLES Final Result MARY JANE ARNOLD [address] Department [place] [address] documented in this encounter Visit Diagnoses Not on filedocumented in this encounter Care Teams Dictating Machine Mechanic Relationship Specialty Start Date End Date Lavonne Hathaway MD [facility] [place] [address] PCP - General 08/16/16 08/17/17 documented as of this encounter
--- OUTSIDE RECORDS SUMMARY | 2024-04-26 04:31 | XMS_ITS | Encounter Summary ---
Author Organization [facility] Healthcare Address [address] [place] [address] Care Team Providers Care Sign Maker Name Role Phone Lavonne Hathaway MD Primary Care Provider +1- [phone] Encounter Details Date Type Department Care Team (Late st Contact Info) Description 09/10/2016 Orders Only Cerner Lab Interim [phone] [place] [address] [facility] [address] [place] [address] Social History Tobacco Use Types Packs/Day Years Used Date Smoking Tobacco: Former Alcohol Use Standard Drinks/Week Comments No 0 (1 standard drink = 0.6 oz pur e alcohol) Comments Unknown Sex and Gender Information Value Date Recorded Sex Assigned at Not on file 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 0.00 - 0.14 ng/mL Indeterminate: ?0.15 - 0.50 ng/mL SC / Cardiac Muscle Damage: ? >0.50 ng/mL Current interpretive data was last reviewed 2015 Blood specimen (specimen) 09/10/2016 9:07 PM CDT 09/10/2016 9:10 PM CDT us Erick Davis MD LAB BLOOD ORDERABLES Edite d Result - Final MARY JANE [address] Department [place] [address] documented in this encounter Visit Diagnoses Not on filedocumented in this encounter Care Teams Sign Maker Relationship Specialty Start Date End Date Lavonne Hathaway MD [address] [place] [address] [place] [address] PCP - General 08/16/16 08/17/17 documented as of this encounter
--- OUTSIDE RECORDS SUMMARY | 2024-04-26 04:31 | XMS_ITS | Encounter Summary ---
Author Organization [facility] Healthcare Address [address] [place] [address] Care Team Providers Care Picker Machine Operator Name Role Phone Antoinette Zhu MD Primary Care Provider +1 -[phone] Encounter Details Date Type Department Care Team (Latest Contact Info) Description 04/27/2016 12:00 PM ILLUSIONIST - 04/27/2016 11:59 PM [facility] Hospital Encounter [facility] OP INTERIM [phone] Khris Arthur MD [id number] [place] [address] Discharge Disposition: Discharge to home or self care Social History Tobacco Use Types Packs/Day Years Used Date Smoking Tobacco: Former Alcohol Use Standard Drinks/Week Comments No 0 (1 standard drink = 0.6 oz pur e alcohol) Comments Unknown Sex and Gender Information Value Date Recorded Sex Assigned at Not on file Legal Sex Female 12:24 AM ILLUSIONIST Gender Identity Not on file Sexual Orientation Not on file documented as of this encounter Medications at Time of Discharge aspirin (ASPIRIN LOW DOSE) 81 mg tablet take 1 tablet (81MG) by oral route every day 0 05/11/2012 07/27/2017 lisinopril (PRINIVIL,ZESTRIL ) 20 mg tablet take [...] on filedocumented in this encounter Care Teams Picker Machine Operator Relationship Specialty Start Date End Date Antoinette Zhu MD [address] [address] PCP - General 08/01/13 07/26/16 documented as of this encounter
--- OUTSIDE RECORDS SUMMARY | 2024-04-26 04:31 | XMS_ITS | Encounter Summary ---
Author Organization [facility] Healthcare Address [address] [place] [address] Care Team Providers Care Security Inspector Name Role Phone Lavonne Hathaway MD Primary Care Provider +1- [phone] Encounter Details Date Type Department Care Team (Late st Contact Info) Description 09/10/2016 Orders Only Cerner Lab Interim [phone] Unknown, Notinfile Social History Tobacco Use Types Packs/Day Years Used Date Smoking Tobacco: Former Alcohol Use Standard Drinks/Week Comments No 0 (1 standard drink = 0.6 oz pur e alcohol) Comments Unknown Sex and Gender Information Value Date Recorded Sex Assigned at Not on file 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 Gender Identity Not on file Sexual Orientation Not on file documented as of this encounter Plan of Treatment Not on file documented as of this encounter Procedures Procedure Name Priority Date/Time Associated Diagnosis Comments B-TYPE NATRIURETIC PEPTIDE STAT 09/10/2016 9:07 PM CDT documented in this encounter Results * B-type natriuretic peptide (09/10/2016 9:07 PM CDT) B-Type Natriuretic Peptide (BNP) 31 0 - 100 pg/mL [facility] Blood specimen (specimen) 09/10/2016 9:07 PM CDT 09/11/2016 12:54 AM CDT us Notinfile Unknown LAB BLOOD ORDERABLES Final Res ult MARY JANE ARNOLD [address] Department of Laboratories [place], [place] [id number] documented in this encounter Visit Diagnoses Not on filedocumented in this encounter Care Teams Security Inspector Relationship Specialty Start Date End Date Lavonne Hathaway MD [facility] [place], [place] [id number] PCP - General 08/16/16 08/17/17 documented as of this encounter
--- OUTSIDE RECORDS SUMMARY | 2024-04-26 04:31 | XMS_ITS | Encounter Summary ---
Author Organization [facility] Healthcare Address [address] [place] [address] Care Team Providers Care Cook Roast Name Role Phone Lavonne Hathaway MD Primary Care Provider +1- [phone] Antoinette Zhu MD Primary Care Provider +1 -[phone] Lavonne Hathaway MD Primary Care Provider +1- [phone] Encounter Details Date Type Department Care Team (Late st Contact Info) Description 08/01/2016 Orders Only Cerner Lab Interim [phone] Unknown, Notinfile Social History Tobacco Use Types Packs/Day Years Used Date Smoking Tobacco: Former Alcohol Use Standard Drinks/Week Comments No 0 (1 standard drink = 0.6 oz pur e alcohol) Comments Unknown Sex and Gender Information Value Date Recorded Sex Assigned at Not on file 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 Gender Identity Not on file Sexual Orientation Not on file documented as of this encounter Plan of Treatment Not on file documented as of this encounter Procedures Procedure Name Priority Date/Time Associated Diagnosis Comments BASIC METABOLIC PANEL STAT 08/01/2016 12:50 AM CDT documented in this encounter Results * Basic metabolic panel (08/01/2016 12:50 AM CDT) Sodium 138 135 - 145 mmol/L [facility] Potassium, pl 4.6 3.3 - 4.9 mmol/L [facility] Chloride 103 97 - 110 mmol/L [facility] Comment:fixed result mapping CO2 26 22 - 32 mmol/L [facility] BUN 16 8 - 25 mg/dL [facility] Glucose 177 70 - 199 mg/dL [facility] Creatinine 0.75 0.60 - 1.10 mg/dL [facility] Calcium 9.5 8.5 - 10.3 mg/dL [facility] Anion gap 9 2 - 15 mmol/L [facility] Blood specimen (specimen) 08/01/2016 12:50 AM CDT 08/01/2016 1:02 AM CDT us Notinfile Unknown LAB BLOOD ORDERABLES Final Res ult [facility] Department [place] [address] documented in this encounter Visit Diagnoses Not on filedocumented in this encounter Care Teams Cook Roast Relationship Specialty Start Date End Date Lavonne Hathaway MD [address] [place] [address] [place] [address] PCP - General 07/27/16 08/10/16 Antoinette Zhu MD [address] [address] PCP - General 08/11/16 08/15/16 Lavonne Hathaway MD [address] [place] [address] [place] [address] PCP - General 08/16/16 08/17/17 documented as of this encounter
--- OUTSIDE RECORDS SUMMARY | 2024-04-26 04:31 | XMS_ITS | Encounter Summary ---
Author Organization [facility] Healthcare Address [address] [place] [address] Care Team Providers Care Installation Drafter Name Role Phone Lavonne Hathaway MD Primary Care Provider +1- [phone] Encounter Details Date Type Department Care Team (Late st Contact Info) Description 09/11/2016 Orders Only Cerner Lab Interim [phone] [place] [address] [facility] [address] [place] [address] Social History Tobacco Use Types Packs/Day Years [...] Procedure Name Priority Date/Time Associated Diagnosis Comments TSH STAT 09/11/2016 9:07 PM CDT documented in this encounter Results * TSH (09/11/2016 9:07 PM CDT) Thyroid Stimulating Hormone 1.43 0.34 - 5.60 mcIUnit/mL MARY JANE ARNOLD Blood specimen (specimen) 09/11/2016 9:07 PM CDT 09/11/2016 2:45 AM CDT us Rosio Horton MD LAB BLOOD ORDERABLES Final Re sult MARY JANE [address] Department [place] [address] documented in this encounter Visit Diagnoses Not on filedocumented in this encounter Care Teams Installation Drafter Relationship Specialty Start Date End Date Lavonne Hathaway MD [facility] [place] [address] PCP - General 08/16/16 08/17/17 documented as of this encounter
--- OUTSIDE RECORDS SUMMARY | 2024-04-26 04:31 | XMS_ITS | Encounter Summary ---
Author Organization [facility] Healthcare Address [address] [place] [address] Care Team Providers Care Oracle Database Administrator Name Role Phone Lavonne Hathaway MD Primary Care Provider +1- [phone] Antoinette Zhu MD Primary Care Provider +1 -[phone] Lavonne Hathaway MD Primary Care Provider +1- [phone] Encounter Details Date Type Department Care Team (Late st Contact Info) Description 08/01/2016 Orders Only Cerner Lab Interim [phone] Unknown, Notinfile Social History Tobacco Use Types Packs/Day Years Used Date Smoking Tobacco: Former Alcohol Use Standard Drinks/Week Comments No 0 (1 standard drink = 0.6 oz pur e alcohol) Comments Unknown Sex and Gender Information Value Date Recorded Sex Assigned at Not on file 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 Gender Identity Not on file Sexual Orientation Not on file documented as of this encounter Plan of Treatment Not on file documented as of this encounter Procedures Procedure Name Priority Date/Time Associated Diagnosis Comments PROTIME-INR STAT 08/01/2016 12:50 AM CDT documented in this encounter Results * Protime-INR (08/01/2016 12:50 AM CDT) PT 13.6 9.2 - 14.0 sec [facility] 1.19 0.81 - 1.22 [facility] Comment: Interpretive Data Inpatient therapeutic ranges* Atrial fibrillation ?2.0-3.0 INR Venous thrombo-embolism ?2.0-3.0 INR Bioprosthetic heart valve ?* Mechanical heart valve, bileaflet or tilting disk,aortic position ? 2.0-3.0 INR All other,or bileaflet or tilting disk, in mitral position ? 2.5-3.5 INR *See the pharmacy resource directory (PHRED) for an updated copy of the Tool Book at [email or web address] Current Interpretive Data was last revised 2011. Blood specimen (specimen) 08/01/2016 12:50 AM CDT 08/01/2016 1:12 AM CDT us Notinfile Unknown LAB BLOOD ORDERABLES Final Res ult Performing Organization Address City/State/[facility] Co de Phone Number [facility] Department [place] [address] documented in this encounter Visit Diagnoses Not on filedocumented in this encounter Care Teams Oracle Database Administrator Relationship Specialty Start Date End Date Lavonne Hathaway MD [facility] [place] [address] PCP - General 07/27/16 08/10/16 Antoinette Zhu MD [address] [address] PCP - General 08/11/16 08/15/16 Lavonne Hathaway MD [facility] [place] [address] PCP - General 08/16/16 08/17/17 documented as of this encounter
--- OUTSIDE RECORDS SUMMARY | 2024-04-26 04:31 | XMS_ITS | Encounter Summary ---
Author Organization [facility] Healthcare Address [address] [place] [address] Care Team Providers Care Event Coordinator Marketing And Sales Name Role Phone Lavonne Hathaway MD Primary Care Provider +1- [phone] Encounter Details Date Type Department Care Team (Late st Contact Info) Description 09/10/2016 Orders Only Cerner Lab Interim [phone] [place] [address] [facility] [address] [place] [address] Social History Tobacco Use Types Packs/Day Years Used Date Smoking Tobacco: Former Alcohol Use Standard Drinks/Week Comments No 0 (1 standard drink = 0.6 oz pur e alcohol) Comments Unknown Sex and Gender Information Value Date Recorded Sex Assigned at Not on file 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 Gender Identity Not on file Sexual Orientation Not on file documented as of this encounter Plan of Treatment Not on file documented as of this encounter Procedures Procedure Name Priority Date/Time Associated Diagnosis Comments DIFFERENTIAL AUTO STAT 09/10/2016 9:0 7 PM CDT documented in this encounter Results * (ABNORMAL) Differential, auto (09/10/2016 9:07 PM CDT) Neutrophil pct 64.2 % [facility] Imm gran pct 0.5 % [facility] Lymphocyte pct 25.5 % [facility] Monocyte pct 6.9 % [facility] Eosinophil pct 0.3 % [facility] Basophil pct 0.4 % [facility] Neutrophil abs 7.57(H) 1.70 - 6.50 K/cumm [facility] Imm gran abs 0.06 0.00 - 0.10 K/cumm [facility] Lymphocyte abs 3.01 0.80 - 3.30 K/cumm [facility] Monocyte abs 0.82(H) 0.20 - 0.80 K/cumm [facility] Eosinophil abs 0.29 0.00 - 0.50 K/cumm [facility] Basophil abs 0.05 0.00 - 0.10 K/cumm [facility] Blood specimen (specimen) 09/10/2016 9:07 PM CDT 09/10/2016 9:10 PM CDT us Erick Davis MD LAB BLOOD ORDERABLES Final Result MARY JANE [address] Department of Laboratories [place], [place] [id number] documented in this encounter Visit Diagnoses Not on filedocumented in this encounter Care Teams Event Coordinator Marketing And Sales Relationship Specialty Start Date End Date Lavonne Hathaway MD [facility] [place] [address] PCP - General 08/16/16 08/17/17 documented as of this encounter
--- OUTSIDE RECORDS SUMMARY | 2024-04-26 04:31 | XMS_ITS | Encounter Summary ---
Author Organization [facility] Healthcare Address [address] [place] [address] Care Team Providers Care Potato Pancake Frier Name Role Phone Lavonne Hathaway MD Primary Care Provider [phone]- [phone] Encounter Details Date Type Department Care Team (Latest Contact Info) Description 08/16/2016 7:36 AM CDT - 08/16/2016 11:59 PM CDT Hospital Encounter [facility] OP [facility]IM [phone] Khris Arthur MD [address] 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 NIYAH FELICIANO M.D. FINAL REPORT The radiology attending physician has personally reviewed this study, and has reviewed and/or edited this written report and agrees with it. ACC# ??Date Time ??Exam [id number] Aug 16, 2016 09:18:00 [id number] MRI Lower Extrm wo and wi cont L ACC# ??Date Time ??Exam [id number] Aug 16, 2016 09:18:00 [id number] MRI Lower Extrm wo and wi cont L EXAMINATION: ?? MR left hindfoot without contrast HISTORY: 61-year-old female with stage II breast cancer status post chemotherapy as well as diabetes presents with left ankle and foot pain. FINDINGS: ??A vitamin E marker is placed at the site of pain over the lateral aspect of the left hindfoot. MR examination of the left hindfoot is performed with an extremity coil. Sagittal short TR/TE and STIR images and transverse and coronal short TR/TE and fast spin-echo images are obtained. 26 mm of Dotarem was then administered intravenously without complication. Creatinine was 0.75 on 08/01/2016 for an estimated GFR greater than 60. Repeat transverse and sagittal short TR/TE images were obtained. Comparison is made to prior left foot radiographs of 03/12/2015 which demonstrated a healing comminuted fracture base of the left fifth metatarsal. 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 The most affected is the third tarsometatarsal joint with multiple subchondral cysts. There is no fracture or malignant bone marrow replacing lesion. There is no intramuscular edema or enhancement. The visualized portions of the extensor tendons and ligaments are normal. The visualized portion of the peroneal tendons demonstrates enlargement and increased T2 signal within the distal peroneus longus tendon consistent with tendinopathy. A small amount of fluid and enhancement involving the distal portion of the tendon is also noted. No tear is identified. No enhancing mass is identified. ?? IMPRESSION: 1. Left peroneus longus tendinopathy and tenosynovitis. 2. 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 ?? Requested By: Khris Arthur ??, MPH ? Dictated By: ?? NIYAH FELICIANO M.D. ??on Aug 16 2016 ??2:14P This document has been electronically signed by: PAUL MORILLO M.D. on Aug 16 2016 ??2:36P [id number] Procedure Note Miscellaneous, Not In File / Provider, MD Tyler - 09/17/2016 PAUL MORILLO M.D. NIYAH FELICIANO M.D. FINAL REPORT The radiology attending physician has personally reviewed this study, and has reviewed and/or edited this written report and agrees with it. ACC# Date Time Exam [id number] Aug 16, 2016 09:18:00 [id number] MRI Lower Extrm wo and wi cont L ACC# Date Time Exam [id number] Aug 16, 2016 09:18:00 [id number] MRI Lower Extrm wo and wi cont L EXAMINATION: MR left hindfoot without contrast HISTORY: 61-year-old female with stage II breast cancer status post chemotherapy as well as diabetes presents with left ankle and foot pain. FINDINGS: A vitamin E marker is placed at the site of pain over the lateral aspect of the left hindfoot. MR examination of the left hindfoot is performed with an extremity coil. Sagittal short TR/TE and STIR images and transverse and coronal short TR/TE and fast spin-echo images are obtained. 26 mm of Dotarem was then administered intravenously without complication. Creatinine was 0.75 on 08/01/2016 for an estimated GFR greater than 60. Repeat transverse and sagittal short TR/TE images were obtained. Comparison is made to prior left foot radiographs of 03/12/2015 which demonstrated a healing comminuted fracture base of the left fifth metatarsal. 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 The most affected is the third tarsometatarsal joint with multiple subchondral cysts. There is no fracture or malignant bone marrow replacing lesion. There is no intramuscular edema or enhancement. The visualized portions of the extensor tendons and ligaments are normal. The visualized portion of the peroneal tendons demonstrates enlargement and increased T2 signal within the distal peroneus longus tendon consistent with tendinopathy. A small amount of fluid and enhancement involving the distal portion of the tendon is also noted. No tear is identified. No enhancing mass is identified. IMPRESSION: 1. Left peroneus longus tendinopathy and tenosynovitis. 2. 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 Requested By: Khris Arthur MD, MPH Dictated By: NIYAH FELICIANO M.D. on Aug 16 2016 2:14P This document has been electronically signed by: PAUL MORILLO M.D. on Aug 16 2016 2:36P [id number] us Not In File Miscellaneous IMG MRI PROCEDURES Fin al Result documented in this encounter Visit Diagnoses Not on filedocumented in this encounter Care Teams Potato Pancake Frier Relationship Specialty Start Date End Date Lavonne Hathaway MD [facility] [place] [address] PCP - General 08/16/16 08/17/17 documented as of this encounter
--- OUTSIDE RECORDS SUMMARY | 2024-04-26 04:31 | XMS_ITS | Encounter Summary ---
Author Organization [facility] Healthcare Address [address] [place] [address] Care Team Providers Care Social Insurance Specialist Name Role Phone Lavonne Hathaway MD Primary Care Provider [phone]- [phone] Antoinette Zhu MD Primary Care Provider [phone] [phone] Lavonne Hathaway MD Primary Care Provider +1- [phone] Encounter Details Date Type Department Care Team (Late st Contact Info) Description 08/01/2016 Orders Only [facility] [phone] Unknown, Notinfile Social History Tobacco Use Types Packs/Day Years Used Date Smoking Tobacco: Former Alcohol Use Standard Drinks/Week Comments No 0 (1 standard drink = 0.6 oz pur e alcohol) Comments Unknown Sex and Gender Information Value Date Recorded Sex Assigned at Not on file 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 Gender Identity Not on file Sexual Orientation Not on file documented as of this encounter Plan of Treatment Not on file documented as of this encounter Procedures Procedure Name Priority Date/Time Associated Diagnosis Comments DIFFERENTIAL AUTO STAT 08/01/2016 12: 50 AM CDT documented in this encounter Results * Differential, auto (08/01/2016 12:50 AM CDT) Neutrophil pct 57.6 % [facility] Imm gran pct 0.5 % [facility] Lymphocyte pct 29.3 % [facility] Monocyte pct 8.6 % [facility] Eosinophil pct 3.7 % [facility] Basophil pct 0.3 % [facility] Neutrophil abs 5.11 1.70 - 6.50 K/cumm [facility] Imm gran abs 0.04 0.00 - 0.10 K/cumm [facility] Lymphocyte abs 2.60 0.80 - 3.30 K/cumm [facility] Monocyte abs 0.76 0.20 - 0.80 K/cumm [facility] Eosinophil abs 0.33 0.00 - 0.50 K/cumm [facility] Basophil abs 0.03 0.00 - 0.10 K/cumm [facility] Blood specimen (specimen) 08/01/2016 12:50 AM CDT 08/01/2016 1:10 AM CDT us Notinfile Unknown LAB BLOOD ORDERABLES Final Res ult [facility] Department [place] [address] documented in this encounter Visit Diagnoses Not on filedocumented in this encounter Care Teams Social Insurance Specialist Relationship Specialty Start Date End Date Lavonne Hathaway MD [address] [place] [address] [place] [address] PCP - General 07/27/16 08/10/16 Antoinetet Zhu MD [address] [address] PCP - General 08/11/16 08/15/16 Lavonne Hathaway MD [address] [place] [address] [place] [address] PCP - General 08/16/16 08/17/17 documented as of this encounter
--- OUTSIDE RECORDS SUMMARY | 2024-04-26 04:31 | XMS_ITS | Encounter Summary ---
Author Organization [facility] Facility Care Team Providers Care Watch Mechanic Name Role Phone Antoinette Zhu MD Primary Care Provider [phone] Encounter Details Date Type Department Care Team (Late st Contact Info) Description 04/27/2016 12:00 PM MILK PICKUP TRUCK DRIVER - 04/27/2016 11:59 PM [facility] Hospital Encounter [facility] Khris Arthur MD [address] [facility] [address] [place] [address] Malignant neoplasm of overlapping sites of left female breast (CMS/HCC) Social History Tobacco Use Types Packs/Day Years Used Date Smoking Tobacco: Former Alcohol Use Standard Drinks/Week Comments No 0 (1 standard drink = 0.6 oz pur e alcohol) Comments Unknown Sex and Gender Information Value Date Recorded Sex Assigned at Not on file 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 Gender Identity Not on file Sexual Orientation [...] 07/19/2013 02/24/2017 documented as of this encounter Plan of Treatment Not on file documented as of this encounter Procedures Procedure Name Priority Date/Time Associated Diagnosis Comments PLASMA COMPREHENSIVE METABOLIC PANEL Routine 04/27/2016 12:12 PM MILK PICKUP TRUCK DRIVER BLOOD CELL COUNT (CBC) Routine 7 12:12 PM MILK PICKUP TRUCK DRIVER BLOOD CELL MORPHOLOGIC EXAM Routine 04/27/2016 12:12 PM MILK PICKUP TRUCK DRIVER DISCHARGE LABORATORY CUMULATIVE REPORT 04/27/2016 documented in this encounter Results * Plasma comprehensive metabolic panel (04/27/2016 12:12 PM MILK PICKUP TRUCK DRIVER) Sodium 136 135 - 145 mmol/L CDR HISTORICAL RESULTS K, pl 4.5 3.3 - 4.9 mmol/L CDR HISTORICAL RESULTS CO2 25 22 - 32 mmol/L CDR HISTORICAL RESULTS BUN 16 8 - 25 mg/dl CDR HISTORICAL RESULTS Glucose 153 70 - 199 mg/dl CDR HISTORICAL RESULTS Creatinine 0.61 0.60 - 1.10 mg/dl CDR HISTORICAL RESULTS Calcium 9.6 8.5 - 10.3 mg/dl CDR HISTORICAL RESULTS Chloride 102 97 - 110 mmol/L CDR HISTORICAL RESULTS Alb 3.8 3.5 - 5.0 g/dl CDR HISTORICAL RESULTS AST 19 10 - 45 Units/L CDR HISTORICAL RESULTS ALT 17 7 - 45 Units/L CDR HISTORICAL RESULTS Alk phos 77 40 - 130 Units/L CDR HISTORICAL RESULTS Bilirubin 0.3 0.1 - 1.2 mg/dl CDR HISTORICAL RESULTS Protein, pl 8.0 6.5 - 8.5 g/dl CDR HISTORICAL RESULTS A. gap 9 2 - 15 mmol/L CDR HISTORICAL RESULTS Plasma 04/27/2016 12:1 2 PM MILK PICKUP TRUCK DRIVER Khris Arthur MD LAB BLOOD ORDERABLES Final Result Performing Organization Address [facility] de Phone Number CDR HISTORICAL RESULTS * (ABNORMAL) Blood cell count (CBC) (04/27/2016 12:12 PM MILK PICKUP TRUCK DRIVER) WBC 9.8 3.8 - 9.9 K/cumm CDR HISTORICAL RESULTS RBC 4.44 3.90 - 5.20 M/cumm CDR HISTORICAL RESULTS Hgb 12.9 11.9 - 15.5 g/dl CDR HISTORICAL RESULTS Hct 40.7 35.6 - 45.5 % CDR HISTORICAL RESULTS MCV 91.7 81.3 - 96.4 fl CDR HISTORICAL RESULTS MCH 29.1 27.1 - 33.3 pg CDR HISTORICAL RESULTS MCHC 31.7(L) 32.3 - 35.7 g/dl CDR HISTORICAL RESULTS Rdw 13.5 11.1 - 14.9 % CDR HISTORICAL RESULTS RDW 45.8 35.7 - 48.1 fl CDR HISTORICAL RESULTS Platelets 282 150 - 400 K/cumm CDR HISTORICAL RESULTS MPV 9.3 9.1 - 12.3 fl CDR HISTORICAL RESULTS NRBC 0.0 0.0 - 0.2 % CDR HIST ORICAL RESULTS NRBC, abs 0.00 0.00 - 0.01 K/cumm CDR HISTORICAL RESULTS Blood specimen (specimen) 04/27/2016 12:12 PM MILK PICKUP TRUCK DRIVER Khris Arthur MD LAB BLOOD ORDERABLES Final Result Performing Organization Address [facility] Co de Phone Number CDR HISTORICAL RESULTS * Blood cell morphologic exam (04/27/2016 12:12 PM MILK PICKUP TRUCK DRIVER) Neutrophils 65.5 % CDR HIST ORICAL RESULTS Immature granulocytes 0.3 % CDR HISTORICAL RESULTS Lymphocytes 24.3 % CDR HIST ORICAL RESULTS Monos 7.3 % CDR HISTOR ICAL RESULTS Eosinophils 2.3 % CDR HIST ORICAL RESULTS Basophils 0.3 % CDR HISTOR ICAL RESULTS Neutrophils, abs 6.4 1.7 - 6.5 K/cumm CDR HISTORICAL RESULTS Immature granulocyte, abs 0.0 0.0 - 0.1 K/cumm CDR HISTORICAL RESULTS Lymphocytes, abs 2.4 0.8 - 3.3 K/cumm CDR HISTORICAL RESULTS Monocytes, absolute 0.7 0.2 - 0.8 K/cumm CDR HISTORICAL RESULTS Eosinophils, abs 0.2 0.0 - 0.5 K/cumm CDR HISTORICAL RESULTS Basophils, abs 0.0 0.0 - 0.1 K/cumm CDR HISTORICAL RESULTS Blood specimen (specimen) 04/27/2016 12:12 PM MILK PICKUP TRUCK DRIVER Khris Arthur MD LAB BLOOD ORDERABLES Final Result CDR HISTORICAL RESULTS * DISCHARGE LABORATORY CUMULATIVE REPORT (04/27/2016) Narrative 04/27/2016 Ordered by an unspecified provider. Historical Provider LAB BLOOD ORDERABLES Deann l Result documented in this encounter Visit Diagnoses Diagnosis Malignant neoplasm of overlapping sites of left female breast (HCC) documented in this encounter Care Teams Watch Mechanic Relationship Specialty Start Date End Date Antoinette Zhu MD [address] [address] PCP - General 08/01/13 07/26/16 documented as of this encounter
--- OUTSIDE RECORDS SUMMARY | 2024-04-26 04:31 | XMS_ITS | Encounter Summary ---
Author Organization [facility] Healthcare Address [address] [place] [address] Care Team Providers Care Retirement Plan Counselor Name Role Phone Antoinette Zhu MD Primary Care Provider +1 -[phone] Encounter Details Date Type Department Care Team (Late st Contact Info) Description 05/22/2016 11:13 AM PSYCHIATRIC AIDES TEACHER - 05/22/2016 6:08 PM [facility] [place] [address] [facility] [address] [place], [place] [id number] Other chest pain; Shortness of breath; Elevated blood pressure reading without diagnosis of hypertension Social History Tobacco Use Types Packs/Day Years Used Date Smoking Tobacco: Former Alcohol Use Standard Drinks/Week Comments No 0 (1 standard drink = 0.6 oz pur e alcohol) Comments Unknown Sex and Gender Information Value Date Recorded Sex Assigned at Not on file Legal Sex Female 12:24 AM PSYCHIATRIC AIDES TEACHER Gender Identity Not on file Sexual [...] Procedure Name Priority Date/Time Associated Diagnosis Comments SERUM TROPONIN I Routine 05/22/2016 1:50 PM PSYCHIATRIC AIDES TEACHER SERUM THYROID-STIMULATING HORMONE (TSH) Routine 05/22/2016 1:50 PM PSYCHIATRIC AIDES TEACHER SERUM ESTIMATED GLOMERULAR FILTRATION RATE Routine 05/22/2016 1:50 PM PSYCHIATRIC AIDES TEACHER PLASMA BASIC METABOLIC PANEL Routine 05/22/2016 1:50 PM PSYCHIATRIC AIDES TEACHER BLOOD B-TYPE NATRIURETIC PEPTIDE (BNP) Routine 05/22/2016 1:50 PM PSYCHIATRIC AIDES TEACHER BLOOD CELL COUNT (CBC) Routine 7 1:50 PM PSYCHIATRIC AIDES TEACHER BLOOD CELL MORPHOLOGIC EXAM Routine 05/22/2016 1:50 PM PSYCHIATRIC AIDES TEACHER XR CHEST PA LATERAL 2 VIEWS Routine 05/22/2016 1:19 PM PSYCHIATRIC AIDES TEACHER ELECTROCARDIOGRAPHY (ECG) 05/22/2016 DISCHARGE LABORATORY CUMULATIVE REPORT 05/22/2016 documented in this encounter Results * Serum thyroid-stimulating hormone (TSH) (05/22/2016 1:50 PM PSYCHIATRIC AIDES TEACHER) Pathologist [facility] TSH 0.73 0.34 - 5.60 mcIUnits/ml CDR HISTORICAL RESULTS Serum 05/22/2016 1:50 PM PSYCHIATRIC AIDES TEACHER Historical Provider LAB BLOOD ORDERABLES Deann l Result Performing Organization Address [facility] de Phone Number CDR HISTORICAL RESULTS * Serum troponin I (05/22/2016 1:50 PM PSYCHIATRIC AIDES TEACHER) Pathologist [facility] Troponin I <0.03 0.00 - 0.14 ng/ml CDR HISTORICAL RESULTS Comment: Interpretive Data Normal: ? 0.00 - 0.14 ng/mL Indeterminate: ?0.15 - 0.50 ng/mL [place] / Cardiac Muscle Damage: ? >0.50 ng/mL Current interpretive data was last reviewed 2015 Serum 05/22/2016 1:50 PM PSYCHIATRIC AIDES TEACHER Historical Provider LAB BLOOD ORDERABLES Deann l Result Performing Organization Address [facility] de Phone Number CDR HISTORICAL RESULTS * Blood B-type natriuretic peptide (BNP) (05/22/2016 1:50 PM PSYCHIATRIC AIDES TEACHER) Pathologist [facility] BNP 15 0 - 100 pg/ml CDR HISTORICAL RESULTS Blood specimen (specimen) 05/22/2016 1:50 PM PSYCHIATRIC AIDES TEACHER Historical Provider LAB BLOOD ORDERABLES Deann l Result Performing Organization Address City/[facility] de Phone Number CDR HISTORICAL RESULTS * (ABNORMAL) Plasma basic metabolic panel (05/22/2016 1:50 PM PSYCHIATRIC AIDES TEACHER) Pathologist [facility] Sodium 134(L) 135 - 145 mmol/L CDR HISTORICAL RESULTS K, pl 4.1 3.5 - 5.1 mmol/L CDR HISTORICAL RESULTS Chloride 102 100 - 114 mmol/L CDR HISTORICAL RESULTS CO2 25 22 - 32 mmol/L CDR HISTORICAL RESULTS BUN 17 8 - 24 mg/dl CDR HISTORICAL RESULTS Glucose 147 70 - 199 mg/dl CDR HISTORICAL RESULTS Creatinine 0.71 0.60 - 1.30 mg/dl CDR HISTORICAL RESULTS Calcium 9.8 8.4 - 10.5 mg/dl CDR HISTORICAL RESULTS A. gap 11 8 - 16 mmol/L CDR HISTORICAL RESULTS Plasma 05/22/2016 1:50 PM PSYCHIATRIC AIDES TEACHER Historical Provider LAB BLOOD ORDERABLES Deann l Result Performing Organization Address City/[facility] Co de Phone Number CDR HISTORICAL RESULTS * (ABNORMAL) Blood cell count (CBC) (05/22/2016 1:50 PM PSYCHIATRIC AIDES TEACHER) WBC 10.4(H) 3.8 - 9.9 K/cumm CDR HISTORICAL RESULTS RBC 4.61 3.90 - 5.20 M/cumm CDR HISTORICAL RESULTS Hgb 13.4 11.9 - 15.5 g/dl CDR HISTORICAL RESULTS Hct 42.6 35.6 - 45.5 % CDR HISTORICAL RESULTS MCV 92.4 81.3 - 96.4 fl CDR HISTORICAL RESULTS MCH 29.1 27.1 - 33.3 pg CDR HISTORICAL RESULTS MCHC 31.5(L) 32.3 - 35.7 g/dl CDR HISTORICAL RESULTS Rdw 13.6 11.1 - 14.9 % CDR HISTORICAL RESULTS RDW 46.4 35.7 - 48.1 fl CDR HISTORICAL RESULTS Platelets 304 150 - 400 K/cumm CDR HISTORICAL RESULTS MPV 9.6 9.1 - 12.3 fl CDR HISTORICAL RESULTS NRBC 0.0 0.0 - 0.2 % CDR HIST ORICAL RESULTS NRBC, abs 0.00 0.00 - 0.01 K/cumm CDR HISTORICAL RESULTS Blood specimen (specimen) 05/22/2016 1:50 PM PSYCHIATRIC AIDES TEACHER Historical Provider LAB BLOOD ORDERABLES Deann l Result Performing Organization Address City/State/[facility] Co de Phone Number CDR HISTORICAL RESULTS * (ABNORMAL) Blood cell morphologic exam (05/22/2016 1:50 PM PSYCHIATRIC AIDES TEACHER) Neutrophils 66.0 % CDR HIST ORICAL RESULTS Immature granulocytes 0.4 % CDR HISTORICAL RESULTS Lymphocytes 23.7 % CDR HIST ORICAL RESULTS Monos 7.1 % CDR HISTOR ICAL RESULTS Eosinophils 0.2 % CDR HIST ORICAL RESULTS Basophils 0.5 % CDR HISTOR ICAL RESULTS Neutrophils, abs 6.9(H) 1.7 - 6.5 K/cumm CDR HISTORICAL RESULTS Immature granulocyte, abs 0.0 0.0 - 0.1 K/cumm CDR HISTORICAL RESULTS Lymphocytes, abs 2.5 0.8 - 3.3 K/cumm CDR HISTORICAL RESULTS Monocytes, absolute 0.7 0.2 - 0.8 K/cumm CDR HISTORICAL RESULTS Eosinophils, abs 0.2 0.0 - 0.5 K/cumm CDR HISTORICAL RESULTS Basophils, abs 0.0 0.0 - 0.1 K/cumm CDR HISTORICAL RESULTS Blood specimen (specimen) 05/22/2016 1:50 PM PSYCHIATRIC AIDES TEACHER us Historical Provider LAB BLOOD ORDERABLES Deann bowman Result CDR HISTORICAL RESULTS * Serum estimated glomerular filtration rate (05/22/2016 1:50 PM PSYCHIATRIC AIDES TEACHER) eGFR 93 ml/min/1.7 3 m2 CDR HISTORICAL RESULTS Comment: Interpretive Data Reference Interval Normal ?>/= 90 mL/min/1.73m2 Mildly decreased* ? 60 - 89 mL/min/1.73m2 Mildly to moderately decreased ?45 - 59 mL/min/1.73m2 Moderately to severely decreased ??30 - 44 mL/min/1.73m2 Severely decreased ?15 - 29 mL/min/1.73m2 Kidney Failure ?< 15 ??mL/min/1.73m2 *Relative to young adult level If -Omani multiply value by 1.16. Estimated glomerular filtration [...] Current interpretive data was last reviewed 2015. Serum 05/22/2016 1:50 PM PSYCHIATRIC AIDES TEACHER us Historical Provider LAB BLOOD ORDERABLES Deann l Result CDR HISTORICAL RESULTS * XR Chest Pa Lateral 2 Views (05/22/2016 1:19 PM PSYCHIATRIC AIDES TEACHER) Anatomical Region Laterality Modality Body, Chest N/A Radiographic Lizeth ging 05/22/2016 1:19 PM PSYCHIATRIC AIDES TEACHER Narrative 05/23/2016 8:43 AM PSYCHIATRIC AIDES TEACHER DATE OF EXAM: ??May 22 2016 ??1:19PM Acc#: ??[id number] ??EDX [id number] - XR Chest 2 Views ?? DIAGNOSIS: ??SOB CHEST PAIN CLINICAL HISTORY: ?? Chest Pain_Chest Pain RESULT: EXAM: CHEST TWO VIEWS DATE: May 22, 2016 CLINICAL HISTORY: Chest pain and shortness of breath for two months FINDINGS: Upright PA and lateral views of the chest were submitted for submitted for review and compared to prior portable chest from April 21, 2014. No prior two view chest is available for comparison. The lungs are clear. The pulmonary vasculature is normal. There is no pneumothorax or pleural effusion. The heart size is normal. The aortic contour is normal. There is mild multilevel thoracic degenerative disc disease. Surgical clips in the upper abdomen on the lateral view are likely due to prior cholecystectomy. IMPRESSION: ? NO ACUTE CARDIOPULMONARY PROCESS. ? HARDWOOD FLOOR FINISHER: ??LB3 TRANSCRIBE DATE/TIME: ??May 22 2016 10:29P RADIOLOGIST: ??RAQUEL BASSETT M.D. ??READ ON: ??May 22 2016 ??3:03P ORDERING DR: ROSIO BRYANT M.D. THIS DOCUMENT HAS BEEN ELECTRONICALLY SIGNED BY: ??RAQUEL BASSETT M.D. ??ON: ??May 23 2016 ??8:43A Attending: ??ANNETTE, ??ROSIO Requesting: ??ANNETTE, ??ROSIO Requesting Fax: ??-- Attending Fax: ??[phone] Attending ID: ??[id number] Requesting ID: ??[id number] Report To 1 ID: ?? Report To 1 Name: ??, ?? Report To 1 FAX: ??-- Report To 2 ID: ?? Report To 2 Name: ??, ?? Report To 2 FAX: ??-- NextGen Order #: ?? Procedure Note Provider, MD Tyler - 09/30/2016 DATE OF EXAM: May 22 2016 1:19PM Acc#: [id number] EDX [id number] - XR Chest 2 Views DIAGNOSIS: SOB CHEST PAIN CLINICAL HISTORY: Chest Pain_Chest Pain RESULT: EXAM: CHEST TWO VIEWS DATE: May 22, 2016 CLINICAL HISTORY: Chest pain and shortness of breath for two months FINDINGS: Upright PA and lateral views of the chest were submitted for submitted for review and compared to prior portable chest from April 21, 2014. No prior two view chest is available for comparison. The lungs are clear. The pulmonary vasculature is normal. There is no pneumothorax or pleural effusion. The heart size is normal. The aortic contour is normal. There is mild multilevel thoracic degenerative disc disease. Surgical clips in the upper abdomen on the lateral view are likely due to prior cholecystectomy. IMPRESSION: NO ACUTE CARDIOPULMONARY PROCESS. HARDWOOD FLOOR FINISHER: LB3 TRANSCRIBE DATE/TIME: May 22 2016 10:29P RADIOLOGIST: RAQUEL BASSETT M.D. READ ON: May 22 2016 3:03P ORDERING DR: ROSIO BYRANT M.D. THIS DOCUMENT HAS BEEN ELECTRONICALLY SIGNED BY: RAQUEL BASSETT M.D. ON: May 23 2016 8:43A Attending: ROSIO BRYANT Requesting: ROSIO BRYANT Requesting Fax: -- Attending Attending ID: [id number] Requesting ID: [id number] Report To 1 ID: Report To 1 Name: , Report To 1 FAX: -- Report To 2 ID: Report To 2 Name: , Report To 2 FAX: -- NextGen Order #: Historical Provider IMG XR PROCEDURES Final R esult * DISCHARGE LABORATORY CUMULATIVE REPORT (05/22/2016) Narrative 05/22/2016 Ordered by an unspecified provider. us Historical Provider LAB BLOOD ORDERABLES Deann l Result * ELECTROCARDIOGRAPHY (ECG) (05/22/2016) Narrative 05/22/2016 Ordered by an unspecified provider. Historical Provider ECG ORDERABLES Final Res ult documented in this encounter Visit Diagnoses Diagnosis Other chest pain Shortness of breath Elevated blood pressure reading without diagnosis of hypertension documented in this encounter Care Teams Retirement Plan Counselor Relationship Specialty Start Date End Date Antoinette Zhu MD [address] [address] PCP - General 08/01/13 07/26/16 documented as of this encounter
--- OUTSIDE RECORDS SUMMARY | 2024-04-26 04:31 | XMS_ITS | Encounter Summary ---
Author Organization [facility] Healthcare Address [address] [place] [address] Care Team Providers Care Blood Tester Name Role Phone Lavonne Hathaway MD Primary Care Provider +1- [phone] Encounter Details Date Type Department Care Team (Late st Contact Info) Description 09/10/2016 Orders Only [facility] Interim [phone] [place] [address] 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 Gender Identity Not on file Sexual Orientation Not on file documented as of this encounter Plan of Treatment Not on file documented as of this encounter Procedures Procedure Name Priority Date/Time Associated Diagnosis Comments URINALYSIS, MICROSCOPIC ONLY STAT 09/10/2016 9:07 PM CDT documented in this encounter Results * (ABNORMAL) Urinalysis, microscopic (09/10/2016 9:07 PM CDT) RBC, ur 2 0 - 3 /HPF [facility] WBC, ur 15(H) 0 - 5 /HPF [facility] Bacteria, ur 0 [facility] Epithelial cells, renal, ur 0 0 - 0 /HPF [facility] Epithelial cells, squamous, ur 5 /LPF [facility] Mucus, ur Present [facility] Urine/Blood 09/10/2016 9:07 PM CDT 09/10/2016 10:44 PM CDT us Rosio Horton MD LAB URINE ORDERABLES Final Re sult [facility] [id number] Department [place] [address] documented in this encounter Visit Diagnoses Not on filedocumented in this encounter Care Teams Blood Tester Relationship Specialty Start Date End Date Lavonne Hathaway MD [facility] [place] [address] PCP - General 08/16/16 08/17/17 documented as of this encounter
--- OUTSIDE RECORDS SUMMARY | 2024-04-26 04:31 | XMS_ITS | Encounter Summary ---
Author Organization [facility] Healthcare Address [address] [place] [address] Care Team Providers Care Lard Tub Washer Name Role Phone Lavonne Hathaway MD Primary Care Provider +1- [phone] Encounter Details Date Type Department Care Team (Latest Contact Info) Description 08/19/2016 1:36 PM CDT - 08/19/2016 11:59 PM CDT Hospital Encounter 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 JUDY RINCON M.D. FINAL REPORT The radiology attending physician has personally reviewed this study, and has reviewed and/or edited this written report and agrees with it. ACC# ??Date Time ??Exam [id number] Aug 19, 2016 14:27:00 [facility] [id number] Diag Mamm, inc CAD, unilat L ?? Technologist(s): Carla Harris; ; [id number] Aug 19, 2016 15:39:00 [facility] [address]21 Breast US unilateral, ltd L ACC# ??Date Time ??Exam [id number] Aug 19, 2016 14:27:00 [facility] [address] Diag Mamm, inc CAD, unilat L ?? Technologist(s): Carla Harris; ; [id number] Aug 19, 2016 15:39:00 [facility] [address]02 Breast US unilateral, ltd L EXAMINATION: ?? [...] SARABIA M.D. on Aug 19 2016 ??4:20P [id number] Procedure Note Miscellaneous, Not In File / Provider, MD Tyler - 09/17/2016 ANTHONY SARABIA M.D. JUDY RINCON M.D. FINAL REPORT The radiology attending physician has personally reviewed this study, and has reviewed and/or edited this written report and agrees with it. [facility]# Date Time Exam [id number] Aug 19, 2016 14:27:00 [facility] [address] Diag Mamm, inc CAD, unilat L Technologist(s): Carla Harris; ; [id number] Aug 19, 2016 15:39:00 [facility] [address]00 Breast US unilateral, ltd L ACC# Date Time Exam [id number] Aug 19, 2016 14:27:00 [facility] [address] Diag Mamm, inc CAD, unilat L Technologist(s): Carla Harris; ; [id number] Aug 19, 2016 15:39:00 [facility] [id number] Breast US unilateral, ltd L EXAMINATION: LEFT [...] SARABIA M.D. on Aug 19 2016 4:20P [id number] us Not In File Miscellaneous IMG US PROCEDURES Deann l Result * Screening Mammogram (08/19/2016 7:27 PM CDT) Anatomical Region Laterality Modality Breast N/A Mammography 08/19/2016 7:27 PM CDT Narrative 08/19/2016 7:27 PM CDT ANTHONY SARABIA M.D. JUDY RINCON M.D. FINAL REPORT The radiology attending physician has personally reviewed this study, and has reviewed and/or edited this written report and agrees with it. ACC# ??Date Time ??Exam [id number] Aug 19, 2016 14:27:00 [facility] [address] Diag Mamm, inc CAD, unilat L ?? Technologist(s): Carla Harris; ; [id number] Aug 19, 2016 15:39:00 [facility] [address]47[address] Breast US unilateral, ltd L ACC# ??Date Time ??Exam [id number] Aug 19, 2016 14:27:00 [facility] [address]45[address] Diag Mamm, inc CAD, unilat L ?? Technologist(s): Carla Harris; ; [id number] Aug 19, 2016 15:39:00 [facility] [id number] Breast US unilateral, ltd L EXAMINATION: ?? [...] SARABIA M.D. on Aug 19 2016 ??4:20P [id number] Procedure Note Miscellaneous, Not In File / Provider, MD Tyler - 09/17/2016 ANTHONY SARABIA M.D. JUDY RINCON M.D. FINAL REPORT The radiology attending physician has personally reviewed this study, and has reviewed and/or edited this written report and agrees with it. ACC# Date Time Exam [id number] Aug 19, 2016 14:27:00 [facility] [address]74[address] Diag Mamm, inc CAD, unilat L Technologist(s): Carla Harris; ; [id number] Aug 19, 2016 15:39:00 C [id number] Breast US unilateral, ltd L ACC# Date Time Exam [id number] Aug 19, 2016 14:27:00 C 94753 Diag Mamm, inc CAD, unilat L Technologist(s): Carla Harris; ; [id number] Aug 19, 2016 15:39:00 C [id number] Breast US unilateral, ltd L EXAMINATION: LEFT [...] SARABIA M.D. on Aug 19 2016 4:20P [id number] us Not In File Miscellaneous IMG MAMMO PROCEDURES F inal Result documented in this encounter Visit Diagnoses Not on filedocumented in this encounter Care Teams Lard Tub Washer Relationship Specialty Start Date End Date Lavonne Hathaway MD [facility] [place] [address] PCP - General 08/16/16 08/17/17 documented as of this encounter
--- OUTSIDE RECORDS SUMMARY | 2024-04-26 04:31 | XMS_ITS | Encounter Summary ---
Author Organization [facility] Healthcare Address [address] [place] [address] Care Team Providers Care Mononitrotoluene Operator Name Role Phone Lavonne Hathaway MD Primary Care Provider +1- [phone] Encounter Details Date Type Department Care Team (Late st Contact Info) Description 09/10/2016 Orders Only [facility] Interim [phone] [place] [address] [facility] [address] [place], [place] [id number] Social History Tobacco Use Types Packs/Day Years Used Date Smoking Tobacco: Former Alcohol Use Standard Drinks/Week Comments No 0 (1 standard drink = 0.6 oz pur e alcohol) Comments Unknown Sex and Gender Information Value Date Recorded Sex Assigned at Not on file 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 Gender Identity Not on file Sexual Orientation Not on file documented as of this encounter Plan of Treatment Not on file documented as of this encounter Procedures Procedure Name Priority Date/Time Associated Diagnosis Comments URINALYSIS AND REFLEX TO MICROSCOPIC AND CULTURE STAT 09/10/2016 9:07 PM CDT documented in this encounter Results * (ABNORMAL) Urinalysis reflex to microscopic and culture (09/10/2016 9:07 PM CDT) Color, ur Yellow [facility] Clarity, ur Clear [facility] Specific gravity, ur 1.024 1.001 - 1.033 [facility] pH, ur 5.0 5.0 - 8.0 [facility] Protein, ur ql Negative Negative [facility] Glucose, ur ql 2+(A) Negative [facility] Ketones, ur Negative Negative [facility] Bilirubin, ur Negative Negative [facility] Blood, ur 2+(A) Negative [facility] Urobilinogen, ur <2.0 <2.0 [facility] Nitrites, ur Negative Negative [facility] Leukocyte esterase, ur 2+(A) Negative [facility] Urine/Blood 09/10/2016 9:07 PM CDT 09/10/2016 10:44 PM CDT us Rosio Horton MD LAB MICROBIOLOGY - GENERAL OR DERABLES Final Result [facility] [id number] Department [place] [address] documented in this encounter Visit Diagnoses Not on filedocumented in this encounter Care Teams Mononitrotoluene Operator Relationship Specialty Start Date End Date Lavonne Hathaway MD [facility] [place] [address] PCP - General 08/16/16 08/17/17 documented as of this encounter
--- OUTSIDE RECORDS SUMMARY | 2024-04-26 04:31 | XMS_ITS | Encounter Summary ---
Author Organization [facility] Healthcare Address [address] [place] [address] Care Team Providers Care Senior Talent Management Consultant Name Role Phone Lavonne Hathaway MD Primary Care Provider +1- [phone] Encounter Details Date Type Department Care Team (Late st Contact Info) Description 09/10/2016 Orders Only [facility] Interim [phone] [place] [address] [facility] [address] [place] [address] Social History Tobacco Use Types Packs/Day Years Used Date Smoking Tobacco: Former Alcohol Use Standard Drinks/Week Comments No 0 (1 standard drink = 0.6 oz pur e alcohol) Comments Unknown Sex and Gender Information Value Date Recorded Sex Assigned at Not on file 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 MARY JANE ARNOLD Comment:Testing performed by : [facility], [address] [place]., [address] Urine/Blood 09/10/2016 9:07 PM CDT 09/11/2016 4:43 AM CDT Narrative MARY JANE ARNOLD - 09/12/2016 8:12 AM CDT us Rosio Horton MD LAB MICROBIOLOGY - GENERAL OR DERABLES Final Result [facility] [id number] Department [place] [address] documented in this encounter Visit Diagnoses Not on filedocumented in this encounter Care Teams Senior Talent Management Consultant Relationship Specialty Start Date End Date Lavonne Hathaway MD [facility] [place] [address] PCP - General 08/16/16 08/17/17 documented as of this encounter
--- OUTSIDE RECORDS SUMMARY | 2024-04-26 04:31 | XMS_ITS | Encounter Summary ---
Author Organization [facility] Healthcare Address [address] [place] [address] Care Team Providers Care Operations Manager Assistant Name Role Phone Lavonne Hathaway MD Primary Care Provider +1- [phone] Antoinette Zhu MD Primary Care Provider +1 -[phone] Lavonne Hathaway MD Primary Care Provider +1- [phone] Encounter Details Date Type Department Care Team (Late st Contact Info) Description 08/01/2016 Orders Only [facility] Inter[facility] [phone] Unknown, Notinfile Social History Tobacco Use Types Packs/Day Years Used Date Smoking Tobacco: Former Alcohol Use Standard Drinks/Week Comments No 0 (1 standard drink = 0.6 oz pur e alcohol) Comments Unknown Sex and Gender Information Value Date Recorded Sex Assigned at Not on file 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 Gender Identity Not on file Sexual Orientation Not on file documented as of this encounter Plan of Treatment Not on file documented as of this encounter Procedures Procedure Name Priority Date/Time Associated Diagnosis Comments CBC WITH AUTO DIFFERENTIAL STAT 08/01/2016 12:50 AM CDT documented in this encounter Results * (ABNORMAL) CBC with auto differential (08/01/2016 12:50 AM CDT) WBC 8.87 3.80 - 9.90 K/cumm [facility] RBC 4.30 3.90 - 5.20 M/cumm [facility] Hgb 12.4 11.9 - 15.5 g/dL [facility] Hct 38.5 35.6 - 45.5 % [facility] MCV 89.5 81.3 - 96.4 fL [facility] MCH 28.8 27.1 - 33.3 pg [facility] MCHC 32.2(L) 32.3 - 35.7 g/dL [facility] RDW CV 14.1 11.1 - 14.9 % [facility] RDW SD 45.5 35.7 - 48.1 fL [facility] Plt 303 150 - 400 K/cumm [facility] MPV 9.8 9.1 - 12.3 fL [facility] NRBC 0.0 0.0 - 0.2 % [facility] NRBC abs 0.00 0.00 - 0.01 K/cumm [facility] Blood specimen (specimen) 08/01/2016 12:50 AM CDT 08/01/2016 1:10 AM CDT us Notinfile Unknown LAB BLOOD ORDERABLES Final Res ult [facility] Department [place] [address] documented in this encounter Visit Diagnoses Not on filedocumented in this encounter Care Teams Operations Manager Assistant Relationship Specialty Start Date End Date Lavonne Hathaway MD [address] [place] [address] [place] [address] PCP - General 07/27/16 08/10/16 Antoinette Zhu MD [address] [address] PCP - General 08/11/16 08/15/16 Lavonne Hathaway MD [address] [place] [address] [place] [address] PCP - General 08/16/16 08/17/17 documented as of this encounter
--- OUTSIDE RECORDS SUMMARY | 2024-04-26 04:31 | XMS_ITS | Encounter Summary ---
Author Organization [facility] Facility Care Team Providers Care Regional Economic Liaison Name Role Phone Antoinette Zhu MD Primary Care Provider [phone] -[phone] Encounter Details Date Type Department Care Team (Late st Contact Info) Description 03/15/2016 5:58 PM SANITARY LANDFILL SUPERVISOR - 03/16/2016 11:59 PM [facility] Hospital Encounter [facility] John Paul Vega MD [address] [place] [address] Procedure not carried out because of patient's decision Social History Tobacco Use Types Packs/Day Years Used Date Smoking Tobacco: Former Alcohol Use Standard Drinks/Week Comments No 0 (1 standard drink = 0.6 oz pur e alcohol) Comments Unknown Sex and Gender Information Value Date Recorded Sex Assigned at Not on file Legal Sex Female 12:24 AM SANITARY LANDFILL SUPERVISOR Gender Identity Not on file Sexual [...] Procedure Name Priority Date/Time Associated Diagnosis Comments DISCHARGE LABORATORY CUMULATIVE REPORT 03/16/2016 XR ABDOMEN 2 VW Routine 03/15/2016 10:45 PM SANITARY LANDFILL SUPERVISOR XR CHEST PA LATERAL 2 VIEWS Routine 03/15/2016 10:45 PM SANITARY LANDFILL SUPERVISOR SERUM TROPONIN I Routine 03/15/2016 7:14 PM SANITARY LANDFILL SUPERVISOR SERUM THYROID-STIMULATING HORMONE (TSH) Routine 03/15/2016 7:14 PM SANITARY LANDFILL SUPERVISOR SERUM LIPASE Routine 03/15/2016 7:14 PM SANITARY LANDFILL SUPERVISOR PLASMA HEPATIC FUNCTION PANEL Routine 03/15/2016 7:14 PM SANITARY LANDFILL SUPERVISOR PLASMA BASIC METABOLIC PANEL Routine 03/15/2016 7:14 PM SANITARY LANDFILL SUPERVISOR BLOOD CELL COUNT (CBC) Routine 03/15/2016 7:14 PM SANITARY LANDFILL SUPERVISOR BLOOD CELL MORPHOLOGIC EXAM Routine 03/15/2016 7:14 PM SANITARY LANDFILL SUPERVISOR BLOOD GLUCOSE, POC Routine 03/15/2016 6: 14 PM SANITARY LANDFILL SUPERVISOR documented in this encounter Results * DISCHARGE LABORATORY CUMULATIVE REPORT (03/16/2016) Narrative 03/16/2016 Ordered by an unspecified provider. us Historical Provider LAB BLOOD ORDERABLES Deann l Result * XR Chest Pa Lateral 2 Views (03/15/2016 10:45 PM SANITARY LANDFILL SUPERVISOR) Anatomical Region Laterality Modality Body, Chest N/A Radiographic Lizeth ging 03/15/2016 10:4 5 PM SANITARY LANDFILL SUPERVISOR Narrative 03/16/2016 10:30 AM SANITARY LANDFILL SUPERVISOR Avery LAM M.D. FINAL REPORT The radiology attending physician has personally reviewed this study, and has reviewed and/or edited this written report and agrees with it. ACC# ??Date Time ??Exam [id number] Mar 15, 2016 22:45:00 [id number] Chest 2 views Frontl & Lat [id number] Mar 15, 2016 22:45:00 [id number] Abdmn wi Decub &/or Erect EXAMINATION: ?? 1. Chest 2 views 2. Abdomen with decubitus and/or erect HISTORY: Abdominal pain, dyspnea, palpitations IMPRESSION: ?? Chest: Two views of the chest are performed with comparison of prior study dated 04/04/2015. No focal consolidation or pulmonary edema. No pleural effusion or pneumothorax. The cardiac silhouette and mediastinal contours are stable. Abdomen: Upright and supine views of the abdomen are performed with comparison to the prior study dated 11/27/2015. Evaluation is limited secondary to patient's body habitus. Cholecystectomy clips and postsurgical changes of anterior abdominal wall mesh repair are again noted. The visualized bowel gas pattern is within normal limits. No free intraperitoneal air. Requested By: XIOMY DOMINGO M.D. Dictated By: ?? DAHLIA HIGHTOWER M.D. ??on Mar 15 2016 11:08P This document has been electronically signed by: CECELIA BETH M.D. on Mar 16 2016 10:30A [id number] Procedure Note Provider, MD Tyler - 09/30/2016 CECELIA IGNACIA, M.D. DAHLIA FAGE, M.D. FINAL REPORT The radiology attending physician has personally reviewed this study, and has reviewed and/or edited this written report and agrees with it. ACC# Date Time Exam [id number] Mar 15, 2016 22:45:00 [id number] Chest 2 views Frontl & Lat [id number] Mar 15, 2016 22:45:00 [id number] Abdmn wi Decub &/or Erect EXAMINATION: 1. Chest 2 views 2. Abdomen with decubitus and/or erect HISTORY: Abdominal pain, dyspnea, palpitations IMPRESSION: Chest: Two views of the chest are performed with comparison of prior study dated 04/04/2015. No focal consolidation or pulmonary edema. No pleural effusion or pneumothorax. The cardiac silhouette and mediastinal contours are stable. Abdomen: Upright and supine views of the abdomen are performed with comparison to the prior study dated 11/27/2015. Evaluation is limited secondary to patient's body habitus. Cholecystectomy clips and postsurgical changes of anterior abdominal wall mesh repair are again noted. The visualized bowel gas pattern is within normal limits. No free intraperitoneal air. Requested By: XIOMY DOMINGO M.D. Dictated By: DAHLIA HIGHTOWER M.D. on Mar 15 2016 11:08P This document has been electronically signed by: CECELIA BETH M.D. on Mar 16 2016 10:30A [id number] us Historical Provider MD GARCIA XR PROCEDURES Final R esult * XR Abdomen 2 VW (03/15/2016 10:45 PM SANITARY LANDFILL SUPERVISOR) Anatomical Region Laterality Modality Body N/A Radiographic Lizeth ging 03/15/2016 10:4 5 PM SANITARY LANDFILL SUPERVISOR Narrative 03/16/2016 10:30 AM SANITARY LANDFILL SUPERVISOR Avery LAM M.D. FINAL REPORT The radiology attending physician has personally reviewed this study, and has reviewed and/or edited this written report and agrees with it. ACC# ??Date Time ??Exam [id number] Mar 15, 2016 22:45:00 [id number] Chest 2 views Frontl & Lat [id number] Mar 15, 2016 22:45:00 91678 Abdmn wi Decub &/or Erect EXAMINATION: ?? 1. Chest 2 views 2. Abdomen with decubitus and/or erect HISTORY: Abdominal pain, dyspnea, palpitations IMPRESSION: ?? Chest: Two views of the chest are performed with comparison of prior study dated 04/04/2015. No focal consolidation or pulmonary edema. No pleural effusion or pneumothorax. The cardiac silhouette and mediastinal contours are stable. Abdomen: Upright and supine views of the abdomen are performed with comparison to the prior study dated 11/27/2015. Evaluation is limited secondary to patient's body habitus. Cholecystectomy clips and postsurgical changes of anterior abdominal wall mesh repair are again noted. The visualized bowel gas pattern is within normal limits. No free intraperitoneal air. Requested By: XIOMY DOMINGO M.D. Dictated By: ?? DAHLIA HIGHTOWER M.D. ??on Mar 15 2016 11:08P This document has been electronically signed by: CECELIA BETH M.D. on Mar 16 2016 10:30A [id number] Procedure Note Provider, MD Tyler - 08/30/2016 Avery LAM M.D. FINAL REPORT The radiology attending physician has personally reviewed this study, and has reviewed and/or edited this written report and agrees with it. ACC# Date Time Exam [id number] Mar 15, 2016 22:45:00 [id number] Chest 2 views Frontl & Lat [id number] Mar 15, 2016 22:45:00 [id number] Abdmn wi Decub &/or Erect EXAMINATION: 1. Chest 2 views 2. Abdomen with decubitus and/or erect HISTORY: Abdominal pain, dyspnea, palpitations IMPRESSION: Chest: Two views of the chest are performed with comparison of prior study dated 04/04/2015. No focal consolidation or pulmonary edema. No pleural effusion or pneumothorax. The cardiac silhouette and mediastinal contours are stable. Abdomen: Upright and supine views of the abdomen are performed with comparison to the prior study dated 11/27/2015. Evaluation is limited secondary to patient's body habitus. Cholecystectomy clips and postsurgical changes of anterior abdominal wall mesh repair are again noted. The visualized bowel gas pattern is within normal limits. No free intraperitoneal air. Requested By: XIOMY DOMINGO M.D. Dictated By: DAHLIA HIGHTOWER M.D. on Mar 15 2016 11:08P This document has been electronically signed by: CECELIA BETH M.D. on Mar 16 2016 10:30A [id number] Historical Provider IMG XR PROCEDURES Final R esult * Serum thyroid-stimulating hormone (TSH) (03/15/2016 7:14 PM SANITARY LANDFILL SUPERVISOR) Pathologist [facility] TSH 0.88 0.30 - 4.20 mcIUnits/m l CDR HISTORICAL RESULTS Comment: Interpretive Data Hyperthyroid: ??<0.1 mcIUnit/mL Hypothyroid: ??>12.0 mcIUnit/mL Current interpretive data was last revised on 00. Serum 03/15/2016 7:14 PM SANITARY LANDFILL SUPERVISOR Result [facility] Cira Castro MD LAB BLOOD ORDERABL ES Final Result Performing Organization Address [facility] de Phone Number CDR HISTORICAL RESULTS * Plasma hepatic function panel (03/15/2016 7:14 PM SANITARY LANDFILL SUPERVISOR) [facility] Protein, pl 8.1 6.5 - 8.5 g/dl CDR HISTORICAL RESULTS Alb 4.0 3.5 - 5.0 g/dl CDR HISTORICAL RESULTS Bilirubin 0.3 0.1 - 1.2 mg/dl CDR HISTORICAL RESULTS Bilirubin, direct <0.2 0.1 - 0.3 mg/dl CDR HISTORICAL RESULTS Alk phos 78 40 - 130 Units/L CDR HISTORICAL RESULTS AST 26 10 - 45 Units/L CDR HISTORICAL RESULTS ALT 23 7 - 45 Units/L CDR HISTORICAL RESULTS Plasma 03/15/2016 7:14 PM SANITARY LANDFILL SUPERVISOR Result [facility] Cira Castro MD LAB BLOOD ORDERABL ES Final Result Performing Organization Address [facility] Co de Phone Number CDR HISTORICAL RESULTS * Plasma basic metabolic panel (03/15/2016 7:14 PM SANITARY LANDFILL SUPERVISOR) Sodium 141 135 - 145 mmol/L CDR HISTORICAL RESULTS K, pl 4.2 3.3 - 4.9 mmol/L CDR HISTORICAL RESULTS Chloride 105 97 - 110 mmol/L CDR HISTORICAL RESULTS CO2 29 22 - 32 mmol/L CDR HISTORICAL RESULTS A. gap 7 2 - 15 mmol/L CDR HISTORICAL RESULTS Glucose 123 70 - 199 mg/dl CDR HISTORICAL RESULTS BUN 15 8 - 25 mg/dl CDR HISTORICAL RESULTS Creatinine 0.82 0.60 - 1.10 mg/dl CDR HISTORICAL RESULTS Calcium 9.9 8.5 - 10.3 mg/dl CDR HISTORICAL RESULTS Plasma 03/15/2016 7:14 PM SANITARY LANDFILL SUPERVISOR Cira Castro MD LAB BLOOD ORDERABL ES Final Result Performing Organization Address [facility] Phone Number [facility] HISTORICAL RESULTS * Serum troponin I (03/15/2016 7:14 PM SANITARY LANDFILL SUPERVISOR) Troponin I <0.03 0.00 - 0.03 ng/ml CDR HISTORICAL RESULTS Comment: Interpretive Data Serial determinations are recommended for the diagnosis of myocardial infarction (Third [place] Definition of Myocardial Infarction. ??J Am Wang Cardiol 2012;60:1581-98). Current interpretive data was last revised on 13. Serum 03/15/2016 7:14 PM SANITARY LANDFILL SUPERVISOR Cira Castro MD LAB BLOOD ORDERABL ES Final Result Performing Organization Address [facility] de Phone Number CDR HISTORICAL RESULTS * Serum lipase (03/15/2016 7:14 PM SANITARY LANDFILL SUPERVISOR) Lip 37 10 - 99 Units/L CDR HISTORICAL RESULTS Serum 03/15/2016 7:14 PM SANITARY LANDFILL SUPERVISOR Cira Castro MD LAB BLOOD ORDERABL ES Final Result Performing Organization Address [facility] de Phone Number CDR HISTORICAL RESULTS * (ABNORMAL) Blood cell count (CBC) (03/15/2016 7:14 PM SANITARY LANDFILL SUPERVISOR) WBC 10.7(H) 3.8 - 9.9 K/cumm CDR HISTORICAL RESULTS RBC 4.22 3.90 - 5.20 M/cumm CDR HISTORICAL RESULTS Hgb 12.0 11.9 - 15.5 g/dl CDR HISTORICAL RESULTS Hct 38.7 35.6 - 45.5 % CDR HISTORICAL RESULTS MCV 91.7 81.3 - 96.4 fl CDR HISTORICAL RESULTS MCH 28.4 27.1 - 33.3 pg CDR HISTORICAL RESULTS MCHC 31.0(L) 32.3 - 35.7 g/dl CDR HISTORICAL RESULTS Rdw 14.1 11.1 - 14.9 % CDR HISTORICAL RESULTS RDW 47.5 35.7 - 48.1 fl CDR HISTORICAL RESULTS Platelets 336 150 - 400 K/cumm CDR HISTORICAL RESULTS MPV 9.9 9.1 - 12.3 fl CDR HISTORICAL RESULTS NRBC 0.0 0.0 - 0.2 % CDR HIST ORICAL RESULTS NRBC, abs 0.00 0.00 - 0.01 K/cumm CDR HISTORICAL RESULTS Blood specimen (specimen) 03/15/2016 7:14 PM SANITARY LANDFILL SUPERVISOR Cira Castro MD LAB BLOOD ORDERABL ES Final Result CDR HISTORICAL RESULTS * (ABNORMAL) Blood cell morphologic exam (03/15/2016 7:14 PM SANITARY LANDFILL SUPERVISOR) Pathologist [facility] Neutrophils 67.6 % CDR HIST ORICAL RESULTS Immature granulocytes 0.5 % CDR HISTORICAL RESULTS Lymphocytes 20.7 % CDR HIST ORICAL RESULTS Monos 7.5 % CDR HISTOR ICAL RESULTS Eosinophils 3.3 % CDR HIST ORICAL RESULTS Basophils 0.4 % CDR HISTOR ICAL RESULTS Neutrophils, abs 7.2(H) 1.7 - 6.5 K/cumm CDR HISTORICAL RESULTS Immature granulocyte, abs 0.0 0.0 - 0.1 K/cumm CDR HISTORICAL RESULTS Lymphocytes, abs 2.2 0.8 - 3.3 K/cumm CDR HISTORICAL RESULTS Monocytes, absolute 0.8 0.2 - 0.8 K/cumm CDR HISTORICAL RESULTS Eosinophils, abs 0.4 0.0 - 0.5 K/cumm CDR HISTORICAL RESULTS Basophils, abs 0.0 0.0 - 0.1 K/cumm CDR HISTORICAL RESULTS Blood specimen (specimen) 03/15/2016 7:14 PM SANITARY LANDFILL SUPERVISOR Cira Castro MD LAB BLOOD ORDERABL ES Final Result Performing Organization Address [facility] Co de Phone Number CDR HISTORICAL RESULTS * Blood glucose, POC (03/15/2016 6:14 PM SANITARY LANDFILL SUPERVISOR) Pathologist [facility] Glucose, POC, bld 121 70 - 199 mg/dl CDR HISTORICAL RESULTS Blood specimen (specimen) 03/15/2016 6:14 PM SANITARY LANDFILL SUPERVISOR Historical Provider LAB BLOOD ORDERABLES Deann l Result Performing Organization Address [facility] Co de Phone Number CDR HISTORICAL RESULTS documented in this encounter Visit Diagnoses Diagnosis Procedure not carried out because of patient's decision Surgical or other procedure not carried out because of patient's decision documented in this encounter Care Teams Regional Economic Liaison Relationship Specialty Start Date End Date Antoinette Zhu MD [address] [address] PCP - General 08/01/13 07/26/16 documented as of this encounter
--- OUTSIDE RECORDS SUMMARY | 2024-04-26 04:31 | XMS_ITS | Encounter Summary ---
Author Organization [facility] Healthcare Address [address] [place] [address] Care Team Providers Care Business Process Modeler Name Role Phone Lavonne Hathaway MD Primary Care Provider +1- [phone] Antoinette Zhu MD Primary Care Provider [phone] -[phone] Lavonne Hathaway MD Primary Care Provider +1- [phone] Encounter Details Date Type Department Care Team (Late st Contact Info) Description 08/01/2016 Orders Only [facility] Inter[facility] [phone] Unknown, Notinfile Social History Tobacco Use Types Packs/Day Years Used Date Smoking Tobacco: Former Alcohol Use Standard Drinks/Week Comments No 0 (1 standard drink = 0.6 oz pur e alcohol) Comments Unknown Sex and Gender Information Value Date Recorded Sex Assigned at Not on file Legal Sex Female 12:24 AM OUTREACH DIRECTOR Gender Identity Not on file Sexual Orientation Not on file documented as of this encounter Plan of Treatment Not on file documented as of this encounter Procedures Procedure Name Priority Date/Time Associated Diagnosis Comments APTT STAT 08/01/2016 12:50 AM CDT documented in this encounter Results * aPTT (08/01/2016 12:50 AM CDT) aPTT 29.4 25.0 - 37.0 sec MARY JANE ANGELES Comment: Interpretive Data Therapeutic heparin range:60.0 - 94.0 sec based on correlation with therapeutic heparin activity range of 0.3 -0.7 Units/mL. Current interpretive data was last revised on 2011. Blood specimen (specimen) 08/01/2016 12:50 AM CDT 08/01/2016 1:12 AM CDT us Notinfile Unknown LAB BLOOD ORDERABLES Final Res ult MARY JANE ANGELES [facility] Department [place] [address] documented in this encounter Visit Diagnoses Not on filedocumented in this encounter Care Teams Business Process Modeler Relationship Specialty Start Date End Date Lavonne Hathaway MD [address] [place] [address] [place] [address] PCP - General 07/27/16 08/10/16 Antoinette Zhu MD [address] [address] PCP - General 08/11/16 08/15/16 Lavonne Hathaway MD [address] [place] [address] [place] [address] PCP - General 08/16/16 08/17/17 documented as of this encounter
--- OUTSIDE RECORDS SUMMARY | 2024-04-26 04:31 | XMS_ITS | Encounter Summary ---
Author Organization [facility] Address [address] [place] [address] Care Team Providers Care Therapeutic Activities Services Worker Name Role Phone Lavonne Hathaway MD Primary Care Provider +1- [phone] Antoinette Zhu MD Primary Care Provider +1 -[phone] Lavonne Hathaway MD Primary Care Provider +1- [phone] Encounter Details Date Type Department Care Team (Late st Contact Info) Description 08/01/2016 Orders Only [facility] [phone] Unknown, Notinfile Social History Tobacco Use Types Packs/Day Years Used Date Smoking Tobacco: Former Alcohol Use Standard Drinks/Week Comments No 0 (1 standard drink = 0.6 oz pur e alcohol) Comments Unknown Sex and Gender Information Value Date Recorded Sex Assigned at Not on file Legal Sex Female 12:24 AM ASSET LIABILITY ANALYST Gender Identity Not on file Sexual Orientation Not on file documented as of this encounter Plan of Treatment Not on file documented as of this encounter Procedures Procedure Name Priority Date/Time Associated Diagnosis Comments TROPONIN I STAT 08/01/2016 12:50 AM CDT documented in this encounter Results * Troponin I (08/01/2016 12:50 AM CDT) Troponin I <0.03 0.00 - 0.03 ng/mL MARY JANE KUMAR Comment: Interpretive Data Serial determinations are recommended for the diagnosis of myocardial infarction (Third [place] Definition of Myocardial Infarction. ??J Am Wang Cardiol 2012;60:1581-98). Current interpretive data was last revised on 13. Blood specimen (specimen) 08/01/2016 12:50 AM CDT 08/01/2016 1:02 AM CDT us Notinfile Unknown LAB BLOOD ORDERABLES Edited Re sult - Final MARY JANE ANGELES [facility] Department [place] [address] documented in this encounter Visit Diagnoses Not on filedocumented in this encounter Care Teams Therapeutic Activities Services Worker Relationship Specialty Start Date End Date Lavonne Hathaway MD [address] [place] [address] [place] [address] PCP - General 07/27/16 08/10/16 Antoinette Zhu MD [address] [address] PCP - General 08/11/16 08/15/16 Lavonne Hathaway MD [address] [place] [address] [place] [address] PCP - General 08/16/16 08/17/17 documented as of this encounter
--- OUTSIDE RECORDS SUMMARY | 2024-04-26 04:31 | XMS_ITS | Encounter Summary ---
Author Organization [facility] Healthcare Address [address] [place] [address] Care Team Providers Care Elementary Classroom Teacher Name Role Phone Lavonne Hathaway MD Primary Care Provider +1- [phone] Encounter Details Date Type Department Care Team (Latest Contact Info) Description 07/31/2016 10:53 PM CDT - 08/01/2016 5:15 AM CDT Hospital Encounter [facility] Emergency Department [address] [place] [address] Alexis Hyatt MD [address] [facility] [place] [id number] [place] [address] Discharge Disposition: Discharge to home or self care Social History Tobacco Use Types Packs/Day Years Used Date Smoking Tobacco: Former Alcohol Use Standard Drinks/Week Comments No 0 (1 standard drink = 0.6 oz pur e alcohol) Comments Unknown Sex and Gender Information Value Date Recorded Sex Assigned at Not on file 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 Gender Identity Not on file Sexual [...] Name Priority Date/Time Associated Diagnosis Comments XR CONSULT OF OUTSIDE FILMS (PEDS ONLY) Routine 08/04/2016 7:52 PM CDT XR CONSULT OF OUTSIDE FILMS (PEDS ONLY) Routine 08/04/2016 7:47 PM CDT XR CONSULT OF OUTSIDE FILMS (PEDS ONLY) Routine 08/04/2016 5:41 PM CDT XR CONSULT OF OUTSIDE FILMS (PEDS ONLY) Routine 08/04/2016 5:[address] CHEST W CONTRAST Routine 08/01/2016 8:24 AM CDT XR CHEST PA LATERAL 2 VIEWS Routine 08/01/2016 6:45 AM CDT GLUCOSE POC Routine Gen Lab 07/31/2016 11:24 PM CDT documented in this encounter Results * XR Interpretation Of Outside Films (08/04/2016 7:52 PM CDT) Anatomical Region Laterality Modality N/A Radiographic Lizeth ging 08/04/2016 7:52 PM CDT Narrative 08/04/2016 7:52 PM CDT OUTSIDE IMAGES HEADMASTER/MISTRESS, FINAL REPORT ACC# ??Date Time ??Exam [id number] Aug 04, 2016 14:47:00 [id number] [facility] Plain Film Reference Aug 04, 2016 14:52:00 [id number] [facility] Ultrasound Reference EXAMINATION: ? Images For Reference Purposes Only IMPRESSION: ? These images are for Reference purposes only and have not been reviewed by [facility].? ? ? There will be no report generated by a [facility] Radiologist. Requested By: FÉLIX ARTHUR ??, MPH ? Dictated By: ?? OUTSIDE IMAGES HEADMASTER/MISTRESS, ?? on Aug 04 2016 ??3:32P This document has been electronically signed by: OUTSIDE IMAGES HEADMASTER/MISTRESS, ??on Aug 04 2016 ??3:32P [id number] Procedure Note Miscellaneous, Notinfile / Provider, MD Tyler - 09/16/2016 OUTSIDE IMAGES HEADMASTER/MISTRESS, FINAL REPORT ACC# Date Time Exam [id number] Aug 04, 2016 14:47:00 [id number] [facility] Plain Film Reference Aug 04, 2016 14:52:00 [id number] [facility] Ultrasound Reference EXAMINATION: ? Images For Reference Purposes Only IMPRESSION: ? These images are for Reference purposes only andhave not been reviewed by [facility].? ? ? There will be no report generated by a [facility] Radiologist. Requested By: FÉLIX ARTHUR MD, MPH Dictated By: OUTSIDE IMAGES HEADMASTER/MISTRESS, on Aug 04 2016 3:32P This document has been electronically signed by: OUTSIDE IMAGES HEADMASTER/MISTRESS, on Aug 04 2016 3:32P [id number] us Not In File Miscellaneous IMG XR PROCEDURES Deann l Result * XR Interpretation Of Outside Films (08/04/2016 7:47 PM CDT) Anatomical Region Laterality Modality N/A Radiographic Lizeth ging 08/04/2016 7:47 PM CDT Narrative 08/04/2016 7:47 PM CDT OUTSIDE IMAGES HEADMASTER/MISTRESS, FINAL REPORT ACC# ??Date Time ??Exam Aug 04, 2016 14:47:00 [id number] [facility] Plain Film Reference Aug 04, 2016 14:52:00 [id number] [facility] Ultrasound Reference EXAMINATION: ? Images For Reference Purposes Only IMPRESSION: ? These images are for Reference purposes only and have not been reviewed by [facility].? ? ? There will be no report generated by a [facility] Radiologist. Requested By: FÉLIX ARTHUR ??, MPH ? Dictated By: ?? OUTSIDE IMAGES HEADMASTER/MISTRESS, ?? on Aug 04 2016 ??3:32P This document has been electronically signed by: OUTSIDE IMAGES HEADMASTER/MISTRESS, ??on Aug 04 2016 ??3:32P [id number] Procedure Note Miscellaneous, Notinfile / ProviderTyler MD - 09/16/2016 OUTSIDE IMAGES HEADMASTER/MISTRESS, FINAL REPORT ACC# Date Time Exam Aug 04, 2016 14:47:00 [id number] [facility] Plain Film Reference Aug 04, 2016 14:52:00 [id number] [facility] Ultrasound Reference EXAMINATION: ? Images For Reference Purposes Only IMPRESSION: ? These images are for Reference purposes only andhave not been reviewed by [facility].? ? ? There will be no report generated by a [facility] Radiologist. Requested By: FÉLIX ARTHUR MD, MPH Dictated By: OUTSIDE IMAGES HEADMASTER/MISTRESS, on Aug 04 2016 3:32P This document has been electronically signed by: OUTSIDE IMAGES HEADMASTER/MISTRESS, on Aug 04 2016 3:32P [id number] us Not In File Miscellaneous IMG XR PROCEDURES Deann l Result * XR Interpretation Of Outside Films (08/04/2016 5:41 PM CDT) Anatomical Region Laterality Modality N/A Radiographic Lizeth ging 08/04/2016 5:41 PM CDT Narrative 08/04/2016 5:41 PM CDT Avery LAM M.D. FINAL REPORT The radiology attending physician has personally reviewed this study, and has reviewed and/or edited this written report and agrees with it. ACC# ??Date Time ??Exam [id number] Aug 04, 2016 12:38:00 [id number] [facility] Body CT Consult [id number] Aug 04, 2016 12:41:00 [id number] [facility] Body CT Consult EXAMINATION: ?CHANGE CONSULT ON OUTSIDE IMAGES TO REFERENCE IMAGES IMPRESSION: ?This study was initially nominated as a consult on outside images via EDA. However, a consult was not performed because a more recent examination has been performed. Accordingly, there will be no separate report of this study generated by a [facility] Radiologist. Requested By: FÉLIX ARTHUR ??, MPH ? Dictated By: ?? KATIE ABDUL M.D. ??on Aug 04 2016 ??1:03P This document has been electronically signed by: CECELIA BETH M.D. on Aug 04 2016 ??2:10P [id number] Procedure Note Miscellaneous, Notinfile / ProviderTyler MD - 09/16/2016 Avery LAM M.D. FINAL REPORT The radiology attending physician has personally reviewed this study, and has reviewed and/or edited this written report and agrees with it. ACC# Date Time Exam [id number] Aug 04, 2016 12:38:00 [id number] [facility] Body CT Consult [id number] Aug 04, 2016 12:41:00 [id number] [facility] Body CT Consult EXAMINATION: CHANGE CONSULT ON OUTSIDE IMAGES TO REFERENCE IMAGES IMPRESSION: This study was initially nominated as a consult on outside images via EDA. However, a consult was not performed because a more recent examination has been performed. Accordingly, there will be no separate report of this study generated by a [facility] Radiologist. Requested By: FÉLIX ARTHUR MD, MPH Dictated By: KATIE ABDUL M.D. on Aug 04 2016 1:03P This document has been electronically signed by: CECELIA BETH M.D. on Aug 04 2016 2:10P [id number] us Not In File Miscellaneous IMG XR PROCEDURES Deann l Result * XR Interpretation Of Outside Films (08/04/2016 5:38 PM CDT) Anatomical Region Laterality Modality N/A Radiographic Lizeth ging 08/04/2016 5:38 PM CDT Narrative 08/04/2016 5:38 PM CDT CECELIA BETH M.D. KATIE ABDUL M.D. FINAL REPORT The radiology attending physician has personally reviewed this study, and has reviewed and/or edited this written report and agrees with it. ACC# ??Date Time ??Exam [id number] Aug 04, 2016 12:38:00 [id number] [facility] Body CT Consult [id number] Aug 04, 2016 12:41:00 [id number] [facility] Body CT Consult EXAMINATION: ?CHANGE CONSULT ON OUTSIDE IMAGES TO REFERENCE IMAGES IMPRESSION: ?This study was initially nominated as a consult on outside images via EDA. However, a consult was not performed because a more recent examination has been performed. Accordingly, there will be no separate report of this study generated by a [facility] Radiologist. Requested By: FÉLIX ARTHUR ??, MPH ? Dictated By: ?? KATIE ABDUL M.D. ??on Aug 04 2016 ??1:03P This document has been electronically signed by: CECELIA BETH M.D. on Aug 04 2016 ??2:10P [id number] Procedure Note Miscellaneous, Notinfile / ProviderTyler MD - 09/16/2016 CECELIA BETH M.D. KATIE ABDUL M.D. FINAL REPORT The radiology attending physician has personally reviewed this study, and has reviewed and/or edited this written report and agrees with it. ACC# Date Time Exam [id number] Aug 04, 2016 12:38:00 [id number] [facility] Body CT Consult [id number] Aug 04, 2016 12:41:00 [id number] [facility] Body CT Consult EXAMINATION: CHANGE CONSULT ON OUTSIDE IMAGES TO REFERENCE IMAGES IMPRESSION: This study was initially nominated as a consult on outside images via EDA. However, a consult was not performed because a more recent examination has been performed. Accordingly, there will be no separate report of this study generated by a [facility] Radiologist. Requested By: FÉLIX ARTHUR MD, MPH Dictated By: KATIE ABDUL M.D. on Aug 04 2016 1:03P This document has been electronically signed by: CECELIA BETH M.D. on Aug 04 2016 2:10P [id number] us Not In File Miscellaneous IMG XR PROCEDURES Deann l Result * CT Chest W Contrast (08/01/2016 8:24 AM CDT) Anatomical Region Laterality Modality Body N/A Computed Tomogra phy 08/01/2016 8:24 AM CDT Narrative 08/01/2016 8:24 AM CDT NATE ARNETT M.D. WILLIAMS LEVY M.D. FINAL REPORT The radiology attending physician has personally reviewed this study, and has reviewed and/or edited this written report and agrees with it. ACC# ??Date Time ??Exam [id number] Aug 01, 2016 03:24:[id number] Chest with contrast EXAMINATION: ?? CT of the chest with intravenous contrast pulmonary embolism protocol. HISTORY: Dyspnea. TECHNIQUE: ??Transaxial computed tomographic images of the chest with 122 mL of Optiray 350 intravenous contrast according to pulmonary embolism protocol. ??No immediate complications following intravenous contrast administration. FINDINGS: Comparison is made to the prior CT examination from 04/04/2015. The examination is limited by body habitus and tiny pulmonary emboli may not be seen. There is no acute pulmonary embolism. ??No chronic pulmonary embolism. There is a patent atelectasis, left greater than right. ??There is no pulmonary edema, pneumothorax, or pleural effusion. There is no pericardial effusion. ??The heart size is normal. ??The aorta is normal in course and caliber. No mediastinal, hilar or axillary lymphadenopathy. The visualized upper abdomen is unremarkable. There are cholecystectomy clips. The bone windows are unremarkable. There are degenerative changes of the spine. There is an unchanged right thyroid lobe hypoattenuating lesion. IMPRESSION: ?? 1. There is no acute or chronic pulmonary embolism. 2. Clear lungs. ADDENDUM Addendum issued on 08/04/2016 at [address] Arnett and Franko. Comparison is made with multiple prior chest CT examinations from an outside hospital which have become available. Several subtle filling defects are seen within the multiple subsegmental pulmonary arteries bilaterally. Although these could be interpreted as flow artifact, given these appear unchanged in location when compared with the to prior examinations, these are consistent with multiple subsegmental pulmonary emboli. There are no new pulmonary emboli seen. The above findings were discussed with Dr. Arthur by Dr. Abdul at 1350 on 08/04/2016. Requested By: ADAM BOONE M.D. Dictated By: ?? WILLIAMS LEVY M.D. ??on Aug 01 2016 ??3:54A This document has been electronically signed by: NATE ARNETT M.D. on Aug 01 2016 ??9:54A Addendum Dictated by: KATIE ABDUL M.D. on Aug 04 2016 ??1:58P This Addendum has been electronically signed by: NATE ARNETT M.D. on Aug 05 2016 10:56A [id number] Procedure Note Miscellaneous, Notinfile / Provider, MD Tyler - 09/16/2016 NATE ARNETT M.D. WILLIAMS LEVY M.D. FINAL REPORT The radiology attending physician has personally reviewed this study, and has reviewed and/or edited this written report and agrees with it. [facility]# Date Time Exam [id number] Aug 01, 2016 03:24:[id number] Chest with contrast EXAMINATION: CT of the chest with intravenous contrast pulmonary embolism protocol. HISTORY: Dyspnea. TECHNIQUE: Transaxial computed tomographic images of the chest with 122 mL of Optiray 350 intravenous contrast according to pulmonary embolism protocol. No immediate complications following intravenous contrast administration. FINDINGS: Comparison is made to the prior CT examination from04/04/2015. The examination is limited by body habitus and tiny pulmonary emboli may not be seen. There is no acute pulmonary embolism. No chronic pulmonary embolism. There is a patent atelectasis, left greater than right. There is no pulmonary edema, pneumothorax, or pleural effusion. There is no pericardial effusion. The heart size is normal. The aorta is normal in course and caliber. No mediastinal, hilar or axillary lymphadenopathy. The visualized upper abdomen is unremarkable. There are cholecystectomy clips. The bone windows are unremarkable. There are degenerative changes of the spine. There is an unchanged right thyroid lobe hypoattenuating lesion. IMPRESSION: 1. There is no acute or chronic pulmonary embolism. 2. Clear lungs. ADDENDUM Addendum issued on 08/04/2016 at [address] Arnett and Franko. Comparison is made with multiple prior chest CT examinations from an outside hospital which have become available. Several subtle filling defects are seen within the multiple subsegmental pulmonary arteries bilaterally. Although these could be interpreted as flow artifact, given these appear unchanged in location when compared with the to prior examinations, these are consistent with multiple subsegmental pulmonary emboli. There are no new pulmonary emboli seen. The above findings were discussed with Dr. Arthur by Dr. Abdul at 1350 on 08/04/2016. Requested By: ADAM BOONE M.D. Dictated By: WILLIAMS LEVY M.D. on Aug 01 2016 3:54A This document has been electronically signed by: NATE ARNETT M.D. on Aug 01 2016 9:54A Addendum Dictated by: KATIE ABDUL M.D. on Aug 04 2016 1:58P This Addendum has been electronically signed by: NATE ARNETT M.D. on Aug 05 2016 10:56A [id number] us Not In File Miscellaneous IMG CT PROCEDURES Deann l Result * XR Chest Pa Lateral 2 Vw (08/01/2016 6:45 AM CDT) Anatomical Region Laterality Modality Body, Chest N/A Radiographic Lizeth ging 08/01/2016 6:45 AM CDT Narrative 08/01/2016 6:45 AM CDT Avery SERNA M.D. FINAL REPORT The radiology attending physician has personally reviewed this study, and has reviewed and/or edited this written report and agrees with it. ACC# ??Date Time ??Exam [id number] Aug 01, 2016 01:45:00 [id number] Chest 2 views Frontl ??and ??Lat EXAMINATION: ?? Chest 2 views HISTORY: Shortness of breath, previous diagnosis of pulmonary embolism. IMPRESSION: ?? Comparison 03/15/2016. The lungs are clear with no focal consolidation or pleural effusion. There is no pneumothorax. The heart size is normal and the cardiomediastinal contours are within normal limits. Requested By: LIBBY BOSWELL M.D. Dictated By: ?? KAITLIN GUILLERMO M.D. ??on Aug 01 2016 ??3:03A This document has been electronically signed by: NATE ARNETT M.D. on Aug 01 2016 ??9:54A [id number] Procedure Note Miscellaneous, Notinfile / Provider, MD Tyler - 09/15/2016 Avery SERNA M.D. FINAL REPORT The radiology attending physician has personally reviewed this study, and has reviewed and/or edited this written report and agrees with it. ACC# Date Time Exam [id number] Aug 01, 2016 01:45:00 [id number] Chest 2 views Frontl and Lat EXAMINATION: Chest 2 views HISTORY: Shortness of breath, previous diagnosis of pulmonary embolism. IMPRESSION: Comparison 03/15/2016. The lungs are clear with no focal consolidation or pleural effusion. There is no pneumothorax. The heart size is normal and the cardiomediastinal contours are within normal limits. Requested By: LIBBY BOSWELL M.D. Dictated By: KAITLIN GUILLERMO M.D. on Aug 01 2016 3:03A This document has been electronically signed by: NATE ARNETT M.D. on Aug 01 2016 9:54A [id number] us Not In File Miscellaneous IMG XR PROCEDURES Deann l Result * Glucose POC (07/31/2016 11:24 PM CDT) Glucose, POC 171 70 - 199 mg/dL [facility] Blood specimen (specimen) 07/31/2016 11:24 PM CDT 07/31/2016 11:24 PM CDT us Notinfile Unknown POINT OF CARE TEST ORDERABLES Final Result [facility] Department [place] [address] documented in this encounter Visit Diagnoses Not on filedocumented in this encounter Care Teams Elementary Classroom Teacher Relationship Specialty Start Date End Date Lavonne Hathaway MD [facility] [address] PCP - General 07/27/16 08/10/16 documented as of this encounter
--- OUTSIDE RECORDS SUMMARY | 2024-04-26 04:31 | XMS_ITS | Encounter Summary ---
Author Organization [facility] Healthcare Address [address] [place] [address] Care Team Providers Care Medicine Aide Name Role Phone Lavonne Hathaway MD Primary Care Provider +1- [phone] Encounter Details Date Type Department Care Team (Late st Contact Info) Description 09/10/2016 Orders Only [facility] [phone] [place] [address] [facility] [address] [place] [address] Social History Tobacco Use Types Packs/Day Years Used Date Smoking Tobacco: Former Alcohol Use Standard Drinks/Week Comments No 0 (1 standard drink = 0.6 oz pur e alcohol) Comments Unknown Sex and Gender Information Value Date Recorded Sex Assigned at Not on file 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 Gender Identity Not on file Sexual Orientation Not on file documented as of this encounter Plan of Treatment Not on file documented as of this encounter Procedures Procedure Name Priority Date/Time Associated Diagnosis Comments COMPREHENSIVE METABOLIC PANEL STAT 09/10/2016 9:07 PM CDT documented in this encounter Results * (ABNORMAL) Comprehensive metabolic panel (09/10/2016 9:07 PM CDT) Sodium 131(L) 135 - 145 mmol/L [facility] Potassium, pl 4.4 3.5 - 5.1 mmol/L [facility] CO2 24 22 - 32 mmol/L [facility] BUN 18 8 - 24 mg/dL [facility] Glucose 269(H) 70 - 199 mg/dL [facility] Creatinine 0.79 0.60 - 1.30 mg/dL [facility] Calcium 9.5 8.4 - 10.5 mg/dL [facility] Chloride 100 100 - 114 mmol/L [facility] Albumin 3.3 3.2 - 4.8 g/dL [facility] AST 29 7 - 40 Units/L [facility] ALT 30 1 - 45 Units/L [facility] Alk phos 69 30 - 110 Units/L [facility] Bilirubin, total 0.30 0.10 - 1.30 mg/dL [facility] Protein, pl 7.4 6.0 - 8.3 g/dL [facility] Anion gap 11 8 - 16 mmol/L [facility] Blood specimen (specimen) 09/10/2016 9:07 PM CDT 09/10/2016 9:10 PM CDT us Erick Davis MD LAB BLOOD ORDERABLES Final Result [facility] [address] [address] Department [place] [address] documented in this encounter Visit Diagnoses Not on filedocumented in this encounter Care Teams Medicine Aide Relationship Specialty Start Date End Date Lavonne Hathaway MD [facility] [place] [address] PCP - General 08/16/16 08/17/17 documented as of this encounter
--- OUTSIDE RECORDS SUMMARY | 2024-04-26 04:31 | XMS_ITS | Encounter Summary ---
Author Organization [facility] Healthcare Address [address] [place] [address] Care Team Providers Care Warehouse Order Filler Name Role Phone Lavonne Hathaway MD Primary Care Provider +1- [phone] Encounter Details Date Type Department Care Team (Late st Contact Info) Description 09/11/2016 Orders Only [facility] [phone] [place] [address] [facility] [address] [place] [address] Social History Tobacco Use Types Packs/Day Years Used Date Smoking Tobacco: Former Alcohol Use Standard Drinks/Week Comments No 0 (1 standard drink = 0.6 oz pur e alcohol) Comments Unknown Sex and Gender Information Value Date Recorded Sex Assigned at Not on file 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 Gender Identity Not on file Sexual Orientation Not on file documented as of this encounter Plan of Treatment Not on file documented as of this encounter Procedures Procedure Name Priority Date/Time Associated Diagnosis Comments T4, FREE STAT 09/11/2016 9:07 PM CDT documented in this encounter Results * T4, free (09/11/2016 9:07 PM CDT) Free T4 0.86 0.61 - 1.12 ng/dL [facility] Blood specimen (specimen) 09/11/2016 9:07 PM CDT 09/11/2016 2:45 AM CDT us Rosio Horton MD LAB BLOOD ORDERABLES Final Re sult [facility] [address] [address] Department [place] [address] documented in this encounter Visit Diagnoses Not on filedocumented in this encounter Care Teams Warehouse Order Filler Relationship Specialty Start Date End Date Lavonne Hathaway MD [facility] [place] [address] PCP - General 08/16/16 08/17/17 documented as of this encounter
--- OUTSIDE RECORDS SUMMARY | 2024-04-26 04:31 | XMS_ITS | Encounter Summary ---
Author Organization [facility] Healthcare Address [address] [place] [address] Care Team Providers Care Cutter Grinder Operator Name Role Phone Lavonne Hathaway MD Primary Care Provider +1- [phone] Antoinette Zhu MD Primary Care Provider +1 -[phone] Lavonne Hathaway MD Primary Care Provider +1- [phone] Encounter Details Date Type Department Care Team (Late st Contact Info) Description 08/01/2016 Orders Only [facility] Inter[facility] [phone] Unknown, Notinfile Social History Tobacco Use Types Packs/Day Years Used Date Smoking Tobacco: Former Alcohol Use Standard Drinks/Week Comments No 0 (1 standard drink = 0.6 oz pur e alcohol) Comments Unknown Sex and Gender Information Value Date Recorded Sex Assigned at Not on file 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 Blood specimen (specimen) 08/01/2016 12:50 AM CDT 08/01/2016 1:10 AM CDT us Notinfile Unknown LAB BLOOD ORDERABLES Final Res ult [facility] Department [place] [address] documented in this encounter Visit Diagnoses Not on filedocumented in this encounter Care Teams Cutter Grinder Operator Relationship Specialty Start Date End Date Lavonne Hathaway MD [facility] [place] [address] PCP - General 07/27/16 08/10/16 Antoinette Zhu MD [address] [address] PCP - General 08/11/16 08/15/16 Lavonne Hathaway MD [address] [place] [address] [place] [address] PCP - General 08/16/16 08/17/17 documented as of this encounter
--- OUTSIDE RECORDS SUMMARY | 2024-04-26 04:31 | XMS_ITS | Encounter Summary ---
Author Organization [facility] Healthcare Address [address] [place] [address] Care Team Providers Care Disk Sharpener Name Role Phone Lavonne Hathaway MD Primary Care Provider [phone]- [phone] Encounter Details Date Type Department Care Team (Late st Contact Info) Description 09/10/2016 Orders Only [facility] Interim [phone] [place] [address] [facility] [address] [place], [place] [id number] Social History Tobacco Use Types Packs/Day Years Used Date Smoking Tobacco: Former Alcohol Use Standard Drinks/Week Comments No 0 (1 standard drink = 0.6 oz pur e alcohol) Comments Unknown Sex and Gender Information Value Date Recorded Sex Assigned at Not on file 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 60 - 89 mL/min/1.73m2 Mildly to moderately decreased ?45 - 59 mL/min/1.73m2 Moderately to severely decreased ??30 - 44 mL/min/1.73m2 Severely decreased ?15 - 29 mL/min/1.73m2 Kidney Failure ?< 15 ??mL/min/1.73m2 *Relative to young adult level If -[place] multiply value by 1.16. Estimated glomerular filtration [...] was last reviewed 2015. Blood specimen (specimen) 09/10/2016 9:07 PM CDT 09/10/2016 9:11 PM CDT Erick Davis MD LAB BLOOD ORDERABLES Final Result MARY JANE [address] Department [place] [address] documented in this encounter Visit Diagnoses Not on filedocumented in this encounter Care Teams Disk Sharpener Relationship Specialty Start Date End Date Lavonne Hathaway MD [address] [place] [address] [place] [address] PCP - General 08/16/16 08/17/17 documented as of this encounter
--- OUTSIDE RECORDS SUMMARY | 2024-04-26 04:31 | XMS_ITS | Encounter Summary ---
Author Organization [facility] Healthcare Address [address] [place] [address] Care Team Providers Care Manager Agency Name Role Phone Lavonne Hathaway MD Primary Care Provider +1- [phone] Encounter Details Date Type Department Care Team (Late st Contact Info) Description 09/11/2016 Orders Only [facility] Interim [phone] Unknown, Notinfile Social History Tobacco Use Types Packs/Day Years Used Date Smoking Tobacco: Former Alcohol Use Standard Drinks/Week Comments No 0 (1 standard drink = 0.6 oz pur e alcohol) Comments Unknown Sex and Gender Information Value Date Recorded Sex Assigned at Not on file 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 Gender Identity Not on file Sexual Orientation Not on file documented as of this encounter Plan of Treatment Not on file documented as of this encounter Procedures Procedure Name Priority Date/Time Associated Diagnosis Comments GLUCOSE POC Routine 09/11/2016 7:32 AM CDT documented in this encounter Results * Glucose POC (09/11/2016 7:32 AM CDT) Glucose, POC 158 70 - 199 mg/dL MARY JANE Blood specimen (specimen) 09/11/2016 7:32 AM CDT 09/11/2016 7:32 AM CDT us Notinfile Unknown POINT OF CARE TEST ORDERABLES Final Result Performing Organization Address City/State/[facility] Co de Phone Number MARY JANE ARNOLD [address] Department [place] [address] documented in this encounter Visit Diagnoses Not on filedocumented in this encounter Care Teams Manager Agency Relationship Specialty Start Date End Date Lavonne Hathaway MD [facility] [place] [address] PCP - General 08/16/16 08/17/17 documented as of this encounter
--- OUTSIDE RECORDS SUMMARY | 2024-04-26 04:32 | XMS_ITS | Encounter Summary ---
Author Organization [facility] Facility Care Team Providers Care Tobacco Prizer Name Role Phone Antoinette Zhu MD Primary Care Provider [phone] [phone] Encounter Details Date Type Department Care Team (Late st Contact Info) Description 03/30/2015 1:01 PM FURNACE FIRER - 03/30/2015 9:40 PM [facility] Hospital Encounter [facility] Khris Arthur MD [address] [facility] [address] [place] [address] Other fatigue; Malignant neoplasm of female breast (CMS/HCC); Thyrotoxicosis without thyroid storm; Cough; Frequency of micturition; 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 Social History Tobacco Use Types Packs/Day Years Used Date Smoking Tobacco: Former Alcohol Use Standard Drinks/Week Comments No 0 (1 standard drink = 0.6 oz pur e alcohol) Comments Unknown Sex and Gender Information Value Date Recorded Sex Assigned at Not on file Legal Sex Female 12:24 AM FURNACE FIRER Gender Identity Not on file Sexual Orientation Not on file documented as of this encounter Last Filed Vital Signs Vital Sign Reading Time Taken Comments Blood Pressure 130/74 03/30/2015 1:13 PM FURNACE FIRER Pulse 85 03/30/2015 1:13 PM FURNACE FIRER Temperature - - Respiratory Rate - - Oxygen Saturation 99% 03/30/2015 1:13 PM FURNACE FIRER Inhaled Oxygen Concentration - - Weight 132.9 kg (292 lb 15.9 oz) 03/30/2015 1:15 PM FURNACE FIRER Height 154.9 cm (5' 1 ) 03/30/2015 1:15 PM FURNACE FIRER Body Mass Index 55.36 03/30/2015 1:15 PM FURNACE FIRER documented in this encounter Medications at Time [...] Name Priority Date/Time Associated Diagnosis Comments PLASMA METANEPHRINE Routine 03/30/2015 5 :04 PM FURNACE FIRER URINE (AEROBIC) CULTURE, [facility] Routine 03/30/2015 3:14 PM FURNACE FIRER BLOOD CULTURE, [facility] Routine 03/30/2015 3: 14 PM FURNACE FIRER URINE MICROSCOPY Routine 03/30/2015 3:14 PM FURNACE FIRER SERUM THYROID-STIMULATING HORMONE (TSH) Routine 03/30/2015 3:14 PM FURNACE FIRER SERUM MAGNESIUM Routine 03/30/2015 3:14 PM FURNACE FIRER PLASMA PHOSPHORUS Routine 03/30/2015 3:1 4 PM FURNACE FIRER PLASMA COMPREHENSIVE METABOLIC PANEL Routine 03/30/2015 3:14 PM FURNACE FIRER URINALYSIS Routine 03/30/2015 3:14 PM FURNACE FIRER BLOOD CELL COUNT (CBC) Routine 5 3:14 PM FURNACE FIRER BLOOD ABO, RH, INDIRECT AB SCREEN Routine 03/30/2015 3:14 PM FURNACE FIRER CHEST RADIOGRAPHY, FRONTAL (AP), LATERAL Routine 03/30/2015 2:08 PM FURNACE FIRER ALL MICROBIOLOGY REPORT SECTION Routine 03/30/2015 12:00 AM FURNACE FIRER ALL MICROBIOLOGY REPORT SECTION Routine 03/30/2015 12:00 AM FURNACE FIRER DISCHARGE LABORATORY CUMULATIVE REPORT 03/30/2015 documented in this encounter Results * Plasma metanephrine (03/30/2015 5:04 PM FURNACE FIRER) Pathologist [facility] Metanephrines <0.20 <0.50 nmol/L HISTORICAL RESULTS Comment: Test Performed by: [place] [address] [employer] Rafter Laborer: Albert Oliver II, M.D., Ph.D. Normetanephrines 0.39 <0.90 nmol/L HISTORICAL RESULTS Plasma 03/30/2015 5:04 PM FURNACE FIRER us Historical Provider LAB BLOOD ORDERABLES Deann bowman Result HISTORICAL RESULTS * (ABNORMAL) Urinalysis (03/30/2015 3:14 PM FURNACE FIRER) Color, ur Yellow Yellow HISTORICAL RESULTS Clarity, ur Clear Clear HISTORIC AL RESULTS Specific gravity, ur 1.016 1.003 - 1.030 HISTORICAL RESULTS pH, ur 7.0 5.0 - 8.0 HISTORICAL RESULTS Protein, ur Negative Trace HISTORIC AL RESULTS Glucose, ur Negative Negative HISTORIC AL RESULTS Ketones, ur Negative Negative HISTORIC AL RESULTS Bilirubin, ur Negative Negative HISTOR ICAL RESULTS U Blood 1+(A) Negative HISTORICAL RESULTS Urobilinogen, quant, ur <2.0(H) 0.0 - 1.9 mg/dl HISTORICAL RESULTS Nitrites, ur Negative Negative HISTORI JOY RESULTS Leukocyte esterase, ur Negative Negative HISTORICAL RESULTS Urine 03/30/2015 3:14 PM FURNACE FIRER Result [facility] Provider LAB BLOOD ORDERABLES Deann l Result Performing Organization Address [facility] de Phone Number HISTORICAL RESULTS * (ABNORMAL) Urine microscopy (03/30/2015 3:14 PM FURNACE FIRER) RBC, ur 4(H) 0 - 3 /hpf HISTORICA L RESULTS WBC, ur 0 0 - 5 /hpf HISTORICA L RESULTS Bacteria, ur Negative Trace HISTORI JOY RESULTS Epithelial cells, renal, ur 0 0 - 0 /hpf HISTORICAL RESULTS Epithelial cells, squamous, ur 12 /lpf HISTORICAL RESULTS Mucus, ur Small /hpf HISTORICAL RESULTS Urine 03/30/2015 3:14 PM FURNACE FIRER Result [facility] Provider LAB BLOOD ORDERABLES Deann l Result Performing Organization Address [facility] de Phone Number HISTORICAL RESULTS * (ABNORMAL) Serum thyroid-stimulating hormone (TSH) (03/30/2015 3:14 PM FURNACE FIRER) TSH <0.02(L) 0.35 - 5.50 mcIUnits/ ml HISTORICAL RESULTS Comment: Interpretive Data Hyperthyroid: ??<0.1 mcIUnit/mL Hypothyroid: ??>12.0 mcIUnit/mL Current interpretive data was last revised on 00. Serum 03/30/2015 3:14 PM FURNACE FIRER Result [facility] Historical Provider LAB BLOOD ORDERABLES Deann l Result Performing Organization Address [facility] de Phone Number HISTORICAL RESULTS * Blood ABO, Rh, indirect ab screen (03/30/2015 3:14 PM FURNACE FIRER) ABO, Rho(D) O Positive HISTORI JOY RESULTS Dilcia, indirect Negative HISTORICAL RESULTS Blood specimen (specimen) 03/30/2015 3:14 PM FURNACE FIRER Historical Provider LAB BLOOD ORDERABLES Deann l Result Performing Organization Address [facility] de Phone Number HISTORICAL RESULTS * Plasma comprehensive metabolic panel (03/30/2015 3:14 PM FURNACE FIRER) Sodium 139 135 - 145 mmol/L HISTORICAL RESULTS K, pl 4.7 3.3 - 4.9 mmol/L HISTORICAL RESULTS Comment: Hemolyzed; (++); potassium value may be falsely elevated by as much as 0.3 - 0.5 mmol/L. Suggest redraw and reanalysis. Chloride 104 97 - 110 mmol/L HISTORICAL RESULTS CO2 28 22 - 32 mmol/L HISTORICAL RESULTS A. gap 7 0 - 16 mmol/L HISTORICAL RESULTS Glucose 112 70 - 199 mg/dl HISTORICAL RESULTS BUN 13 8 - 25 mg/dl HISTORICAL RESULTS Creatinine 0.62 0.60 - 1.10 mg/dl HISTORICAL RESULTS Calcium 10.0 8.6 - 10.3 mg/dl HISTORICAL RESULTS Protein, pl 8.4 6.5 - 8.5 g/dl HISTORICAL RESULTS Alb 3.8 3.6 - 5.0 g/dl HISTORICAL RESULTS Bilirubin 0.3 0.3 - 1.1 mg/dl HISTORICAL RESULTS Alk phos 83 38 - 126 Units/L HISTORICAL RESULTS AST 26 11 - 47 Units/L HISTORICAL RESULTS ALT 24 7 - 53 Units/L HISTORICAL RESULTS Plasma 03/30/2015 3:14 PM FURNACE FIRER Historical Provider LAB BLOOD ORDERABLES Deann l Result Performing Organization Address City/[facility] Co de Phone Number HISTORICAL RESULTS * Plasma phosphorus (03/30/2015 3:14 PM FURNACE FIRER) Phosphorus, pl 3.5 2.3 - 4.3 mg/dl HISTORICAL RESULTS Plasma 03/30/2015 3:14 PM FURNACE FIRER Historical Provider MD LAB BLOOD ORDERABLES Deann l Result HISTORICAL RESULTS * Serum magnesium (03/30/2015 3:14 PM FURNACE FIRER) Magnesium 1.9 1.4 - 2.5 mg/dl HISTORICAL RESULTS Serum 03/30/2015 3:14 PM FURNACE FIRER Historical Provider MD LAB BLOOD ORDERABLES Deann l Result Performing Organization Address [facility] Co de Phone Number HISTORICAL RESULTS * (ABNORMAL) Blood cell count (CBC) (03/30/2015 3:14 PM FURNACE FIRER) WBC 7.2 3.8 - 9.8 K/cumm HISTORICAL RESULTS RBC 4.43 3.90 - 5.00 M/cumm HISTORICAL RESULTS Hgb 12.2 12.1 - 15.1 g/dl HISTORICAL RESULTS Hct 38.9 36.1 - 44.3 % HISTORICAL RESULTS MCV 87.9 80.0 - 97.6 fl HISTORICAL RESULTS MCH 27.5 26.7 - 33.7 pg HISTORICAL RESULTS MCHC 31.3(L) 32.7 - 35.5 g/dl HISTORICAL RESULTS Rdw 15.9(H) 11.8 - 14.6 % HISTORICAL RESULTS Platelets 286 140 - 440 K/cumm HISTORICAL RESULTS MPV 8.1 6.8 - 10.4 fl HISTORICAL RESULTS Neutrophils 68.1 38.7 - 74.5 % HISTORICAL RESULTS Lymphocytes 15.9(L) 20.0 - 54.3 % HISTORICAL RESULTS Monos 12.8 4.3 - 13.5 % HISTORICAL RESULTS Eosinophils 2.5 0.0 - 6.0 % HISTORICAL RESULTS Basophils 0.7 0.0 - 3.0 % HISTORICAL RESULTS Neutrophils, abs 4.9 1.8 - 6.6 K/cumm HISTORICAL RESULTS Lymphocytes, abs 1.1(L) 1.2 - 3.3 K/cumm HISTORICAL RESULTS Monocytes, absolute 0.9 0.2 - 1.2 K/cumm HISTORICAL RESULTS Eosinophils, abs 0.2 0.0 - 0.5 K/cumm HISTORICAL RESULTS Basophils, abs 0.0 0.0 - 0.2 K/cumm HISTORICAL RESULTS Blood specimen (specimen) 03/30/2015 3:14 PM FURNACE FIRER Historical Provider MD LAB BLOOD ORDERABLES Deann l Result Performing Organization Address [facility] de Phone Number HISTORICAL RESULTS * Blood culture (03/30/2015 3:14 PM FURNACE FIRER) Blood specimen (specimen) (Antecubital, right) 03/30/2015 3:14 PM FURNACE FIRER 03/30/2015 4:34 PM FURNACE FIRER Impressions HISTORICAL RESULTS - 04/05/2015 2:59 AM FURNACE FIRER Blood cultures are incubated for five days on a continuously monitored blood culture system. ??The first report of a negative culture is issued within 24 hours of receipt of the specimen in the laboratory. ??Positive culture results are reported as soon as they are detected. ??For blood cultures with gram-positive cocci, a rapid molecular test for organism identification may be performed using the [employer] Nanosphere Gram Positive Blood Culture Assay. ??The Nanosphere assay detects microbial DNA in positive blood culture broth via hybridization of target DNA to capture oligonucleotides on a microarray. ??This assay has been cleared by the [place] Food and Drug Administration and its performance characteristics have been verified by the [facility]. Current Interpretive Data was last revised on 2013. Narrative HISTORICAL RESULTS - 04/05/2015 2:59 AM FURNACE FIRER No growth Historical Provider LAB MICROBIOLOGY - GENERA L ORDERABLES Final Result Performing Organization Address [facility] de Phone Number HISTORICAL RESULTS * Urine (aerobic) culture (03/30/2015 3:14 PM FURNACE FIRER) Urine, clean voided (Unknown) 03/30/2015 3:14 PM FURNACE FIRER 03/30/2015 4:26 PM FURNACE FIRER Narrative HISTORICAL RESULTS - 04/03/2015 3:10 PM FURNACE FIRER Growth indicative of contamination with periurethral evelio. Please submit a new specimen with special attention given to the collection process and to prompt transport to the laboratory. Historical Provider LAB MICROBIOLOGY - GENERA L ORDERABLES Final Result Performing Organization Address [facility]/ZIP Co de Phone Number HISTORICAL RESULTS * CHEST RADIOGRAPHY, FRONTAL (AP), LATERAL (03/30/2015 2:08 PM FURNACE FIRER) Anatomical Region Laterality Modality N/A Radiographic Lizeth ging 03/30/2015 2:08 PM FURNACE FIRER Narrative 03/30/2015 5:12 PM FURNACE FIRER JEFFERSON BROWN M.D. DAHLIA HIGHTOWER M.D. FINAL REPORT The radiology attending physician has personally reviewed this study, and has reviewed and/or edited this written report and agrees with it. ACC# ??Date Time ??Exam [id number] Mar 30, 2015 14:08:00 [id number] Chest 2 views Frontl & Lat EXAMINATION: ?? Chest two views, frontal and lateral IMPRESSION: ?? Comparison is made with 02/13/2015. The lungs are clear. There is no focal consolidation, pneumothorax, or pleural effusion. The cardiac silhouette and mediastinal contours are within normal limits. Requested By: Dictated By: ?? DAHLIA HIGHTOWER M.D. ??on Mar ??2014 ??3:59P This document has been electronically signed by: JEFFERSON BROWN M.D. on Mar ??5:12P [id number] Procedure Note Provider, Tyler, - 08/12/2016 JEFFERSON BROWN M.D. DAHLIA HIGHTOWER M.D. FINAL REPORT The radiology attending physician has personally reviewed this study, and has reviewed and/or edited this written report and agrees with it. ACC# Date Time Exam [id number] Mar 30, 2015 14:08:00 [id number] Chest 2 views Frontl & Lat EXAMINATION: Chest two views, frontal and lateral IMPRESSION: Comparison is made with 02/13/2015. The lungs are clear. There is no focal consolidation, pneumothorax, or pleural effusion. The cardiac silhouette and mediastinal contours are within normal limits. Requested By: Dictated By: DAHLIA HIGHTOWER M.D. on Mar 30 2015 3:59P This document has been electronically signed by: JEFFERSON BROWN M.D. on Mar 30 2015 5:12P [id number] us Historical Provider MD IMG XR PROCEDURES Final R esult * DISCHARGE LABORATORY CUMULATIVE REPORT (03/30/2015) Narrative 03/30/2015 Ordered by an unspecified provider. us Historical Provider LAB BLOOD ORDERABLES Deann bowman Result * All Microbiology Report Section (03/30/2015 12:00 AM FURNACE FIRER) 03/30/2015 Narrative HISTORICAL RESULTS - 04/03/2015 3:32 PM FURNACE FIRER ? [facility] ?[address] [facility] [place] ?[place] [address] ? Patient Name: ??MOHSEN SALAZAR ? Med Rec Number: [id number] ? Fin Number: ?[id number] ? Date: ?1955 ? Sex/Age: ? Female 59 years ? Admit Date: ?03/30/2015 ? Discharge Date: 03/30/2015 ? Doctor: ?Khris Arthur ? Facility: ?[facility] ? Location: ?247 ?* Abnormal ??A Alert ??f Footnote ??^ Corrected ??L Low ??H High ?i Interp Data ??@ Ref Lab ? Chart Type:Cumulative ?* * * * MICROBIOLOGY - URINE * * * * ?PROCEDURE: Urine Culture ? SOURCE: Urine, clean voided ? COLLECTED: 03/30/15 ??1514 ?BODY SITE: ? STARTED: 03/30/15 ??1626 ? FREE TEXT SOURCE: ? FINAL REPORT ? REPORTED: 04/03/15 1509 ? Growth indicative of contamination with periurethral evelio. ? Please submit a new specimen with special attention given to the ? collection process and to prompt transport to the laboratory. us Historical Provider MD LAB MICROBIOLOGY - GENERA L ORDERABLES Final Result HISTORICAL RESULTS * All Microbiology Report Section (03/30/2015 12:00 AM FURNACE FIRER) 03/30/2015 Narrative HISTORICAL RESULTS - 04/05/2015 3:28 AM FURNACE FIRER ? [facility] ?[address] [facility] [place] ?[facility] [address] ? Patient Name: ??MOHSEN SALAZAR ? Med Rec Number: [id number] ? Fin Number: ?[id number] ? Date: ?1955 ? Sex/Age: ? Female 59 years ? Admit Date: ?03/30/2015 ? Discharge Date: 03/30/2015 ? Doctor: ?Ademulucerowa , [place] O ? Facility: ?[facility] ? Location: ?247C ?* Abnormal ??A Alert ??f Footnote ??^ Corrected ??L Low ??H High ?i Interp Data ??@ Ref Lab ? Chart Type:Cumulative ?* * * * MICROBIOLOGY - BLOOD/STERILE FLUID * * * * ?PROCEDURE: Culture, Blood ? SOURCE: Blood ? COLLECTED: 03/30/15 ??1514 ?BODY SITE: Antecubital, right ? STARTED: 03/30/15 ??1634 ? FREE TEXT SOURCE: ? FINAL REPORT ? REPORTED: 04/05/15 0259 ? No growth ?* * * ??Interpretive Results ??* * * ? (1)Blood cultures are incubated for five days on a continuously ? monitored blood culture system. ??The first report of a negative ? culture is issued within 24 hours of receipt of the specimen in ? the laboratory. ??Positive culture results are reported as soon ? as they are detected. ??For blood cultures with gram-positive ? cocci, a rapid molecular test for organism identification may be ? performed using the [employer] Nanosphere Gram Positive Blood ? Culture Assay. ??The Nanosphere assay detects microbial DNA in ? positive blood culture broth via hybridization of target DNA to ? capture oligonucleotides on a microarray. ??This assay has been ? cleared by the [place] Food and Drug Administration and ? its performance characteristics have been verified by the ? [facility].Current ? Interpretive Data was last revised on 2013. ? 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
--- OUTSIDE RECORDS SUMMARY | 2024-04-26 04:32 | XMS_ITS | Encounter Summary ---
Author Organization [facility] Care Team Providers Care Podiatric Assistant Name Role Phone Antoinette Zhu MD Primary Care Provider [phone] Encounter Details Date Type Department Care Team (Latest Contact Info) Description 04/05/2015 1:42 AM SKIN DRIER - 04/05/2015 3:05 PM [facility] Hospital Encounter [facility] Dehydration; Malignant neoplasm of female breast (CMS/HCC); Essential (primary) hypertension; Thyrotoxicosis without thyroid storm; Anemia; Palpitations; Headache; Obstructive sleep apnea; Restless legs syndrome; Type 2 diabetes mellitus without complications (CMS/HCC); Personal history of nicotine dependence; Personal history of other venous thrombosis and embolism Social History Tobacco Use Types Packs/Day Years Used Date Smoking Tobacco: Former Alcohol Use Standard Drinks/Week Comments No 0 (1 standard drink = 0.6 oz pur e alcohol) Comments Unknown Sex and Gender Information Value Date Recorded Sex Assigned at Not on file Legal Sex Female 12:24 AM SKIN DRIER Gender Identity Not on file Sexual Orientation Not on file documented as of this encounter Last Filed Vital Signs Vital Sign Reading Time Taken Comments Blood Pressure 113/57 04/05/2015 11:46 AM SKIN DRIER Pulse 76 04/05/2015 11:46 AM SKIN DRIER Temperature - - Respiratory Rate - - Oxygen Saturation 97% 04/05/2015 11: 46 AM SKIN DRIER Inhaled Oxygen Concentration - - Weight 129.3 kg (284 lb 15.8 oz) 04/05/2015 2:43 AM SKIN DRIER Height 154.9 cm (5' 1 ) 04/05/2015 2:43 AM SKIN DRIER Body Mass Index 53.85 04/05/2015 2:43 AM SKIN DRIER documented in this encounter Medications at Time [...] Procedure Name Priority Date/Time Associated Diagnosis Comments BLOOD GLUCOSE, POC Routine 04/05/2015 12 :04 PM SKIN DRIER BLOOD GLUCOSE, POC Routine 04/05/2015 8: 23 AM SKIN DRIER SERUM TROPONIN I Routine 04/05/2015 2:59 AM SKIN DRIER PLASMA BASIC METABOLIC PANEL Routine 04/05/2015 2:59 AM SKIN DRIER ELECTROCARDIOGRAPHY (ECG) 04/05/2015 DISCHARGE LABORATORY CUMULATIVE REPORT 04/05/2015 BLOOD CULTURE, CDR Routine 04/04/2015 11 :06 PM SKIN DRIER BLOOD CULTURE, CDR Routine 04/04/2015 11 :06 PM SKIN DRIER URINE MICROSCOPY Routine 04/04/2015 11:0 6 PM SKIN DRIER SERUM MAGNESIUM Routine 04/04/2015 11:06 PM SKIN DRIER PLASMA PHOSPHORUS Routine 04/04/2015 11: 06 PM SKIN DRIER PLASMA HEPATIC FUNCTION PANEL Routine 04/04/2015 11:06 PM SKIN DRIER BLOOD POTASSIUM, MIXED VENOUS Routine 04/04/2015 11:06 PM SKIN DRIER URINALYSIS Routine 04/04/2015 11:06 PM SKIN DRIER CHEST RADIOGRAPHY, FRONTAL (AP), LATERAL Routine 04/04/2015 9:[address] CHEST W CONTRAST Routine 04/04/2015 9 :[address] HEAD WO CONTRAST Routine 04/04/2015 9 :48 PM SKIN DRIER SERUM TROPONIN I Routine 04/04/2015 7:34 PM SKIN DRIER SERUM THYROXINE (T4), FREE Routine 04/04 7:34 PM SKIN DRIER SERUM THYROID-STIMULATING HORMONE (TSH) Routine 04/04/2015 7:34 PM SKIN DRIER PLASMA PROTHROMBIN TIME (PT) Routine 04/04/2015 7:34 PM SKIN DRIER PLASMA PARTIAL THROMBOPLASTIN TIME (PTT) Routine 04/04/2015 7:34 PM SKIN DRIER PLASMA BASIC METABOLIC PANEL Routine 04/04/2015 7:34 PM SKIN DRIER BLOOD HEMOGLOBIN A1C Routine 04/04/2015 7:34 PM SKIN DRIER BLOOD B-TYPE NATRIURETIC PEPTIDE (BNP) Routine 04/04/2015 7:34 PM SKIN DRIER BLOOD CELL COUNT (CBC) Routine 5 7:34 PM SKIN DRIER BLOOD GLUCOSE, POC Routine 04/04/2015 6: 54 PM SKIN DRIER ALL MICROBIOLOGY REPORT SECTION Routine 04/04/2015 12:00 AM SKIN DRIER ALL MICROBIOLOGY REPORT SECTION Routine 04/04/2015 12:00 AM SKIN DRIER documented in this encounter Results * Blood glucose, POC (04/05/2015 12:04 PM SKIN DRIER) Glucose, POC, bld 116 70 - 199 mg/dl HISTORICAL RESULTS Blood specimen (specimen) 04/05/2015 12:04 PM SKIN DRIER us Kiana Pedro MD LAB BLOOD ORDERABLES Final Resul t Performing Organization Address City/[facility] Co de Phone Number HISTORICAL RESULTS * Blood glucose, POC (04/05/2015 8:23 AM SKIN DRIER) Glucose, POC, bld 128 70 - 199 mg/dl HISTORICAL RESULTS Blood specimen (specimen) 04/05/2015 8:23 AM SKIN DRIER us Kiana Pedro MD LAB BLOOD ORDERABLES Final Resul t Performing Organization Address City/State/[facility] Co de Phone Number HISTORICAL RESULTS * (ABNORMAL) Plasma basic metabolic panel (04/05/2015 2:59 AM SKIN DRIER) Sodium 139 135 - 145 mmol/L HISTORICAL RESULTS K, pl 4.0 3.3 - 4.9 mmol/L HISTORICAL RESULTS Chloride 104 97 - 110 mmol/L HISTORICAL RESULTS CO2 26 22 - 32 mmol/L HISTORICAL RESULTS A. gap 9 0 - 16 mmol/L HISTORICAL RESULTS Glucose 133 70 - 199 mg/dl HISTORICAL RESULTS BUN 16 8 - 25 mg/dl HISTORICAL RESULTS Creatinine 0.56(L) 0.60 - 1.10 mg/dl HISTORICAL RESULTS Calcium 8.8 8.6 - 10.3 mg/dl HISTORICAL RESULTS Plasma 04/05/2015 2:59 AM SKIN DRIER Osiel Harrison MD LAB BLOOD ORDERABLES F inal Result Performing Organization Address [facility] de Phone Number HISTORICAL RESULTS * Serum troponin I (04/05/2015 2:59 AM SKIN DRIER) Pathologist [facility] Troponin I <0.03 0.00 - 0.03 ng/ml HISTORICAL RESULTS Comment: Interpretive Data Serial determinations are recommended for the diagnosis of myocardial infarction (Third [place] Definition of Myocardial Infarction. ??J Am Wang Cardiol 2012;60:1581-98). Current interpretive data was last revised on 13. Serum 04/05/2015 2:59 AM SKIN DRIER Result [place] [facility] Semaj Goldstein MD LAB BLOOD ORDERABLES F inal Result Performing Organization Address [facility] Phone Number HISTORICAL RESULTS * DISCHARGE LABORATORY CUMULATIVE REPORT (04/05/2015) Narrative 04/05/2015 Ordered by an unspecified provider. Historical Provider LAB BLOOD ORDERABLES Deann l Result * ELECTROCARDIOGRAPHY (ECG) (04/05/2015) Narrative 04/05/2015 Ordered by an unspecified provider. Result [place] [facility] Historical Provider ECG ORDERABLES Final Res ult * Blood potassium, mixed venous (04/04/2015 11:06 PM SKIN DRIER) Pathologist [facility] Potassium, bld 4.5 3.3 - 4.9 mmol/L HISTORICAL RESULTS Mixed venous blood 04/04/2015 11:06 PM SKIN DRIER Result [place] [facility] Semaj Goldstein MD LAB BLOOD ORDERABLES F inal Result Performing Organization Address [facility] de Phone Number HISTORICAL RESULTS * (ABNORMAL) Plasma hepatic function panel (04/04/2015 11:06 PM SKIN DRIER) Pathologist [facility] Protein, pl 7.4 6.5 - 8.5 g/dl HISTORICAL RESULTS Alb 3.4(L) 3.6 - 5.0 g/dl HISTORICAL RESULTS Bilirubin 0.2(L) 0.3 - 1.1 mg/dl HISTORICAL RESULTS Bilirubin, direct 0.1 0.0 - 0.3 mg/dl HISTORICAL RESULTS Alk phos 78 38 - 126 Units/L HISTORICAL RESULTS AST 25 11 - 47 Units/L HISTORICAL RESULTS ALT 19 7 - 53 Units/L HISTORICAL RESULTS Plasma 04/04/2015 11:0 6 PM SKIN DRIER Semaj Goldstein MD LAB BLOOD ORDERABLES F inal Result Performing Organization Address [facility] de Phone Number HISTORICAL RESULTS * (ABNORMAL) Plasma phosphorus (04/04/2015 11:06 PM SKIN DRIER) Phosphorus, pl 4.4(H) 2.3 - 4.3 mg/dl HISTORICAL RESULTS Plasma 04/04/2015 11:0 6 PM SKIN DRIER Semaj Goldstein MD LAB BLOOD ORDERABLES F inal Result Performing Organization Address [facility] de Phone Number HISTORICAL RESULTS * Serum magnesium (04/04/2015 11:06 PM SKIN DRIER) Magnesium 1.8 1.4 - 2.5 mg/dl HISTORICAL RESULTS Serum 04/04/2015 11:0 6 PM SKIN DRIER Semaj Goldstein MD LAB BLOOD ORDERABLES F inal Result Performing Organization Address [facility] de Phone Number HISTORICAL RESULTS * (ABNORMAL) Urinalysis (04/04/2015 11:06 PM SKIN DRIER) Color, ur Yellow Yellow HISTORICAL RESULTS Clarity, ur Clear Clear HISTORIC AL RESULTS Specific gravity, ur >1.042(H) 1.003 - 1.030 HISTORICAL RESULTS pH, ur 5.0 5.0 - 8.0 HISTORICAL RESULTS Protein, ur Negative Trace HISTORIC AL RESULTS Glucose, ur Negative Negative HISTORIC AL RESULTS Ketones, ur Negative Negative HISTORIC AL RESULTS Bilirubin, ur Negative Negative HISTOR ICAL RESULTS U Blood 1+(A) Negative HISTORICAL RESULTS Urobilinogen, quant, ur <2.0(H) 0.0 - 1.9 mg/dl HISTORICAL RESULTS Nitrites, ur Negative Negative HISTORI JOY RESULTS Leukocyte esterase, ur 2+(A) Negative HISTORICAL RESULTS Urine 04/04/2015 11:0 6 PM SKIN DRIER Semaj Goldstein MD LAB BLOOD ORDERABLES F inal Result Performing Organization Address City/[facility] Co de Phone Number HISTORICAL RESULTS * (ABNORMAL) Urine microscopy (04/04/2015 11:06 PM SKIN DRIER) RBC, ur 7(H) 0 - 3 /hpf HISTORICA L RESULTS WBC, ur 4 0 - 5 /hpf HISTORICA L RESULTS Bacteria, ur Negative Trace HISTORI JOY RESULTS Epithelial cells, renal, ur 0 0 - 0 /hpf HISTORICAL RESULTS Epithelial cells, squamous, ur 19 /lpf HISTORICAL RESULTS Mucus, ur Small /hpf HISTORICAL RESULTS Urine 04/04/2015 11:0 6 PM SKIN DRIER Semaj Goldstein MD LAB BLOOD ORDERABLES F inal Result Performing Organization Address [facility] de Phone Number HISTORICAL RESULTS * Blood culture (04/04/2015 11:06 PM SKIN DRIER) Blood specimen (specimen) (Hand, right) 04/04/2015 11:06 PM SKIN DRIER 04/04/2015 11:38 PM SKIN DRIER Impressions HISTORICAL RESULTS - 04/10/2015 5:55 AM SKIN DRIER Blood cultures are incubated for five days on a continuously monitored blood culture system. ??The first report of a negative culture is issued within 24 hours of receipt of the specimen in the laboratory. ??Positive culture results are reported as soon as they are detected. ??For blood cultures with gram-positive cocci, a rapid molecular test for organism identification may be performed using the Zuvvu Nanosphere Gram Positive Blood Culture Assay. ??The Nanosphere assay detects microbial DNA in positive blood culture broth via hybridization of target DNA to capture oligonucleotides on a microarray. ??This assay has been cleared by the [place] Food and Drug Administration and its performance characteristics have been verified by the [facility]. Current Interpretive Data was last revised on 2013. Narrative HISTORICAL RESULTS - 04/10/2015 5:55 AM SKIN DRIER No growth Historical Provider MD LAB MICROBIOLOGY - GENERA L ORDERABLES Final Result Performing Organization Address City/[facility] Co de Phone Number HISTORICAL RESULTS * Blood culture (04/04/2015 11:06 PM SKIN DRIER) Blood specimen (specimen) (Wrist, right) 04/04/2015 11:06 PM SKIN DRIER 04/04/2015 11:38 PM SKIN DRIER Impressions HISTORICAL RESULTS - 04/10/2015 5:55 AM SKIN DRIER Blood cultures are incubated for five days on a continuously monitored blood culture system. ??The first report of a negative culture is issued within 24 hours of receipt of the specimen in the laboratory. ??Positive culture results are reported as soon as they are detected. ??For blood cultures with gram-positive cocci, a rapid molecular test for organism identification may be performed using the Zuvvu Nanosphere Gram Positive Blood Culture Assay. ??The Nanosphere assay detects microbial DNA in positive blood culture broth via hybridization of target DNA to capture oligonucleotides on a microarray. ??This assay has been cleared by the [place] Food and Drug Administration and its performance characteristics have been verified by the [facility]. Current Interpretive Data was last revised on 2013. Narrative HISTORICAL RESULTS - 04/10/2015 5:55 AM SKIN DRIER No growth Historical Provider MD LAB MICROBIOLOGY - GENERA L ORDERABLES Final Result Performing Organization Address City/[facility] Co de Phone Number HISTORICAL RESULTS * CHEST RADIOGRAPHY, FRONTAL (AP), LATERAL (04/04/2015 9:53 PM SKIN DRIER) Anatomical Region Laterality Modality N/A Radiographic Lizeth ging 04/04/2015 9:53 PM SKIN DRIER Narrative 04/06/2015 7:13 AM SKIN DRIER CIELO DUVAL M.D. GODWIN LYNCH M.D. FINAL REPORT The radiology attending physician has personally reviewed this study, and has reviewed and/or edited this written report and agrees with it. ACC# ??Date Time ??Exam [id number] Apr 04, 2015 21:53:00 [id number] Chest 2 views Frontl & Lat EXAMINATION: ?? Chest two views frontal and lateral HISTORY: Headache, blurry vision, diaphoresis, palpitations. IMPRESSION: ?? Comparison 03/30/2015. Interval development of airspace opacity at the right lung base, which may represent a developing pneumonia. Recommend repeat imaging in 6 weeks to document resolution. No pleural effusion, pneumothorax, or pulmonary edema. Normal cardiomediastinal silhouette. Requested By: SEMAJ GOLDSTEIN M.D. Dictated By: ?? GODWIN LYNCH M.D. ??on Apr 04 2015 10:03P This document has been electronically signed by: CIELO DUVAL M.D. on Apr 06 2015 ??7:11A [id number] Procedure Note Provider, Tyler, - 08/12/2016 CIELO DUVAL M.D. GODWIN LYNCH M.D. FINAL REPORT The radiology attending physician has personally reviewed this study, and has reviewed and/or edited this written report and agrees with it. ACC# Date Time Exam [id number] Apr 04, 2015 21:53:00 [id number] Chest 2 views Frontl & Lat EXAMINATION: Chest two views frontal and lateral HISTORY: Headache, blurry vision, diaphoresis, palpitations. IMPRESSION: Comparison 03/30/2015. Interval development of airspace opacity at the right lung base, which may represent a developing pneumonia. Recommend repeat imaging in 6 weeks to document resolution. No pleural effusion, pneumothorax, or pulmonary edema. Normal cardiomediastinal silhouette. Requested By: SEMAJ GOLDSTEIN M.D. Dictated By: GODWIN LYNCH M.D. on Apr 04 2015 10:03P This document has been electronically signed by: CIELO DUVAL M.D. on Apr 06 2015 7:11A [id number] us Historical Provider MD GARCIA XR PROCEDURES Final R esult * CT Head WO Contrast (04/04/2015 9:48 PM SKIN DRIER) Anatomical Region Laterality Modality Head and Neck N/A Computed Tomogra phy 04/04/2015 9:48 PM SKIN DRIER Narrative 04/05/2015 10:53 AM SKIN DRIER ARTURO MILLS M.D. CLINTON MELTON M.D. FINAL REPORT The radiology attending physician has personally reviewed this study, and has reviewed and/or edited this written report and agrees with it. ACC# ??Date Time ??Exam [id number] Apr 04, 2015 21:48:[id number] Head or Brain w/o cont EXAMINATION: ?? Noncontrast head CT HISTORY: Breast cancer; mental status change TECHNIQUE: Noncontrast CT of the brain was performed with images acquired from skull base to vertex. COMPARISON: None available. FINDINGS: Topogram demonstrates no lytic lesions or fractures. There is no acute intracranial hemorrhage. Ventricles are of normal size and morphology. No mass effect or midline shift is present. The carney-white matter differentiation is normal. The visualized portions of the orbits are normal. The visualized portions of the mastoids are normal. The visualized portions of the paranasal sinuses are normal. No fractures are identified. IMPRESSION: ?? No acute intracranial abnormality. Requested By: SEMAJ GOLDSTEIN M.D. Dictated By: ?? CLINTON MELTON M.D. ??on Apr 04 2015 10:06P This document has been electronically signed by: ARTURO MILLS M.D. on Apr 05 2015 10:52A [id number] Procedure Note Provider, MD Tyler - 08/12/2016 ARTURO MILLS M.D. CLINTON MELTON M.D. FINAL REPORT The radiology attending physician has personally reviewed this study, and has reviewed and/or edited this written report and agrees with it. ACC# Date Time Exam [id number] Apr 04, 2015 21:48:[id number] Head or Brain w/o cont EXAMINATION: Noncontrast head CT HISTORY: Breast cancer; mental status change TECHNIQUE: Noncontrast CT of the brain was performed with images acquired from skull base to vertex. COMPARISON: None available. FINDINGS: Topogram demonstrates no lytic lesions or fractures. There is no acute intracranial hemorrhage. Ventricles are of normal size and morphology. No mass effect or midline shift is present. The carney-white matter differentiation is normal. The visualized portions of the orbits are normal. The visualized portions of the mastoids are normal. The visualized portions of the paranasal sinuses are normal. No fractures are identified. IMPRESSION: No acute intracranial abnormality. Requested By: SEMAJ GOLDSTEIN M.D. Dictated By: CLINTON MELTON M.D. on Apr 04 2015 10:06P This document has been electronically signed by: ARTURO MILLS M.D. on Apr 05 2015 10:52A [id number] Historical Provider MD GARCIA CT PROCEDURES Final R esult * CT Chest W Contrast (04/04/2015 9:48 PM SKIN DRIER) Anatomical Region Laterality Modality Body N/A Computed Tomogra phy 04/04/2015 9:48 PM SKIN DRIER Narrative 04/06/2015 7:13 AM SKIN DRIER CIELO DUVAL M.D. NATE BOLANOS M.D. FINAL REPORT The radiology attending physician has personally reviewed this study, and has reviewed and/or edited this written report and agrees with it. ACC# ??Date Time ??Exam [id number] Apr 04, 2015 21:48:[id number] Chest with contrast EXAMINATION: ?? CT of the chest with contrast HISTORY: 51-year-old woman with breast cancer status post mastectomy in September 2014 with history of pulmonary embolism who presents with the patient's and shortness of breath; evaluate for pulmonary and most TECHNIQUE: ??CT of the chest was obtained after the uneventful administration of 92 mL of Optiray 350 according to pulmonary embolism protocol. FINDINGS: Comparison is made to 02/14/2015. The heart size is normal. There is no pericardial or pleural effusion. There is no supraclavicular, axillary, mediastinal, or hilar lymphadenopathy. There is no central pulmonary embolism, however evaluation of the segmental and subsegmental pulmonary arteries is limited. Three mm nodular opacity along the left major fissure where it joins the lateral pleura most likely represents a lymph node. No suspicious pulmonary nodules are identified. Visualized portions of the upper abdomen demonstrate an unchanged 4 mm nonobstructing renal calculus in the interpolar region of the right kidney. No suspicious osseous lesions. IMPRESSION: ?? 1. ??No central pulmonary embolism, however evaluation of the segmental and subsegmental pulmonary arteries is markedly limited. 2. ??No focal consolidation. ?? 3. ??No evidence of metastatic disease in the chest. Requested By: SEMAJ GOLDSTEIN M.D. Dictated By: ?? NATE BOLANOS M.D. ??on Apr 04 2015 11:13P This document has been electronically signed by: CIELO DUVAL M.D. on Apr 06 2015 ??7:11A [id number] Procedure Note Provider, MD Tyler - 08/12/2016 CIELO DUVAL M.D. NATE BOLANOS M.D. FINAL REPORT The radiology attending physician has personally reviewed this study, and has reviewed and/or edited this written report and agrees with it. ACC# Date Time Exam [id number] Apr 04, 2015 21:48:[id number] Chest with contrast EXAMINATION: CT of the chest with contrast HISTORY: 51-year-old woman with breast cancer status post mastectomy in September 2014 with history of pulmonary embolism who presents with the patient's and shortness of breath; evaluate for pulmonary and most TECHNIQUE: CT of the chest was obtained after the uneventful administration of 92 mL of Optiray 350 according to pulmonary embolism protocol. FINDINGS: Comparison is made to 02/14/2015. The heart size is normal. There is no pericardial or pleural effusion. There is no supraclavicular, axillary, mediastinal, or hilar lymphadenopathy. There is no central pulmonary embolism, however evaluation of the segmental and subsegmental pulmonary arteries is limited. Three mm nodular opacity along the left major fissure where it joins the lateral pleura most likely represents a lymph node. No suspicious pulmonary nodules are identified. Visualized portions of the upper abdomen demonstrate an unchanged 4 mm nonobstructing renal calculus in the interpolar region of the right kidney. No suspicious osseous lesions. IMPRESSION: 1. No central pulmonary embolism, however evaluation of the segmental and subsegmental pulmonary arteries is markedly limited. 2. No focal consolidation. 3. No evidence of metastatic disease in the chest. Requested By: SEMAJ GOLDSTEIN M.D. Dictated By: NATE BOLANOS M.D. on Apr 04 2015 11:13P This document has been electronically signed by: CIELO DUVAL M.D. on Apr 06 2015 7:11A [id number] Historical Provider MD GARCIA CT PROCEDURES Final R esult * (ABNORMAL) Serum thyroid-stimulating hormone (TSH) (04/04/2015 7:34 PM SKIN DRIER) TSH 0.02(L) 0.35 - 5.50 mcIUnits/ ml HISTORICAL RESULTS Comment: Interpretive Data Hyperthyroid: ??<0.1 mcIUnit/mL Hypothyroid: ??>12.0 mcIUnit/mL Current interpretive data was last revised on 00. Serum 04/04/2015 7:34 PM SKIN DRIER Semaj Goldstein MD LAB BLOOD ORDERABLES F inal Result Performing Organization Address [facility] de Phone Number HISTORICAL RESULTS * Plasma partial thromboplastin time (PTT) (04/04/2015 7:34 PM SKIN DRIER) APTT 33.4 25.0 - 37.0 seconds HISTORICAL RESULTS Comment: Interpretive Data Therapeutic heparin range:60.0 - 94.0 sec based on correlation with therapeutic heparin activity range of 0.3 -0.7 Units/mL. Current interpretive data was last revised on 2011. Plasma 04/04/2015 7:34 PM SKIN DRIER Semaj Goldstein MD LAB BLOOD ORDERABLES F inal Result Performing Organization Address [facility] Co de Phone Number HISTORICAL RESULTS * (ABNORMAL) Plasma basic metabolic panel (04/04/2015 7:34 PM SKIN DRIER) Sodium 137 135 - 145 mmol/L HISTORICAL RESULTS K, pl See Comment 3.3 - 4.9 mmol/L HISTORICAL RESULTS Comment:{CRDT; Grossly Hemol yzed sample; Unable to test.} Chloride 103 97 - 110 mmol/L HISTORICAL RESULTS CO2 21(L) 22 - 32 mmol/L HISTORICAL RESULTS A. gap 13 0 - 16 mmol/L HISTORICAL RESULTS Glucose 136 70 - 199 mg/dl HISTORICAL RESULTS BUN 19 8 - 25 mg/dl HISTORICAL RESULTS Creatinine 0.55(L) 0.60 - 1.10 mg/dl HISTORICAL RESULTS Calcium 9.2 8.6 - 10.3 mg/dl HISTORICAL RESULTS Plasma 04/04/2015 7:34 PM SKIN DRIER Seamj Goldstein MD LAB BLOOD ORDERABLES F inal Result Performing Organization Address [facility] de Phone Number HISTORICAL RESULTS * Serum troponin I (04/04/2015 7:34 PM SKIN DRIER) Troponin I <0.03 0.00 - 0.03 ng/ml HISTORICAL RESULTS Comment: Interpretive Data Serial determinations are recommended for the diagnosis of myocardial infarction (Third [place] Definition of Myocardial Infarction. ??J Am Wang Cardiol 2012;60:1581-98). Current interpretive data was last revised on 13. Serum 04/04/2015 7:34 PM SKIN DRIER Semaj Goldstein MD LAB BLOOD ORDERABLES F inal Result Performing Organization Address [facility] de Phone Number HISTORICAL RESULTS * (ABNORMAL) Plasma prothrombin time (PT) (04/04/2015 7:34 PM SKIN DRIER) Prothrombin time (PT) 14.3(H) 9.2 - 13.0 seconds HISTORICAL RESULTS INR 1.32(H) 0.90 - 1.20 HISTORIC AL RESULTS Comment: Interpretive Data Inpatient therapeutic ranges* Atrial fibrillation ?2.0-3.0 INR Venous thrombo-embolism ?2.0-3.0 INR Bioprosthetic heart valve ?* Mechanical heart valve, bileaflet or tilting disk,aortic position ? 2.0-3.0 INR All other,or bileaflet or tilting disk, in mitral position ? 2.5-3.5 INR *See the pharmacy resource directory (PHRED) for an updated copy of the Tool Book at [email or web address] Current Interpretive Data was last revised 2011. Plasma 04/04/2015 7:34 PM SKIN DRIER Semaj Goldstein MD LAB BLOOD ORDERABLES F inal Result Performing Organization Address [facility] [place] de Phone Number HISTORICAL RESULTS * Serum thyroxine (T4), free (04/04/2015 7:34 PM SKIN DRIER) Free T4 1.21 0.90 - 1.80 ng/dl HISTORICAL RESULTS Serum 04/04/2015 7:34 PM SKIN DRIER Semaj Goldstein MD LAB BLOOD ORDERABLES F inal Result Performing Organization Address [facility] de Phone Number HISTORICAL RESULTS * (ABNORMAL) Blood cell count (CBC) (04/04/2015 7:34 PM SKIN DRIER) WBC 8.9 3.8 - 9.8 K/cumm HISTORICAL RESULTS RBC 4.12 3.90 - 5.00 M/cumm HISTORICAL RESULTS Hgb 11.3(L) 12.1 - 15.1 g/dl HISTORICAL RESULTS Hct 35.3(L) 36.1 - 44.3 % HISTORICAL RESULTS MCV 85.8 80.0 - 97.6 fl HISTORICAL RESULTS MCH 27.4 26.7 - 33.7 pg HISTORICAL RESULTS MCHC 31.9(L) 32.7 - 35.5 g/dl HISTORICAL RESULTS Rdw 16.0(H) 11.8 - 14.6 % HISTORICAL RESULTS Platelets 270 140 - 440 K/cumm HISTORICAL RESULTS MPV 7.9 6.8 - 10.4 fl HISTORICAL RESULTS Neutrophils 74.7(H) 38.7 - 74.5 % HISTORICAL RESULTS Lymphocytes 12.6(L) 20.0 - 54.3 % HISTORICAL RESULTS Monos 9.9 4.3 - 13.5 % HISTORICAL RESULTS Eosinophils 2.3 0.0 - 6.0 % HISTORICAL RESULTS Basophils 0.5 0.0 - 3.0 % HISTORICAL RESULTS Neutrophils, abs 6.7(H) 1.8 - 6.6 K/cumm HISTORICAL RESULTS Lymphocytes, abs 1.1(L) 1.2 - 3.3 K/cumm HISTORICAL RESULTS Monocytes, absolute 0.9 0.2 - 1.2 K/cumm HISTORICAL RESULTS Eosinophils, abs 0.2 0.0 - 0.5 K/cumm HISTORICAL RESULTS Basophils, abs 0.0 0.0 - 0.2 K/cumm HISTORICAL RESULTS Blood specimen (specimen) 04/04/2015 7:34 PM SKIN DRIER Semaj Goldstein MD LAB BLOOD ORDERABLES F inal Result Performing Organization Address [place]/[facility] Co de Phone Number HISTORICAL RESULTS * (ABNORMAL) Blood hemoglobin A1C (04/04/2015 7:34 PM SKIN DRIER) Hgb A1C 6.6(H) 4.0 - 6.0 % HISTORICAL RESULTS Estimated average glucose 143 mg/dl HISTORICAL RESULTS Comment: The ADA recommends reporting an estimated Average Glucose (eAG) with all Hemoglobin A1c results using the equation derived from a study of 507 normal and diabetic adults. ??Minority populations were underrepresented and children were not included. ??(Diabetes Care 31:4004-9461, 2008). ??The eAG is not equivalent to a fasting glucose. Blood specimen (specimen) 04/04/2015 7:34 PM SKIN DRIER Semaj Goldstein MD LAB BLOOD ORDERABLES F inal Result Performing Organization Address [place]/[facility] Co de Phone Number HISTORICAL RESULTS * Blood B-type natriuretic peptide (BNP) (04/04/2015 7:34 PM SKIN DRIER) BNP <5 0 - 100 pg/ml HISTORICAL RESULTS Blood specimen (specimen) 04/04/2015 7:34 PM SKIN DRIER Semaj Goldstein MD LAB BLOOD ORDERABLES F inal Result HISTORICAL RESULTS * Blood glucose, POC (04/04/2015 6:54 PM SKIN DRIER) Glucose, POC, bld 147 70 - 199 mg/dl HISTORICAL RESULTS Blood specimen (specimen) 04/04/2015 6:54 PM SKIN DRIER us Historical Provider MD LAB BLOOD ORDERABLES Deann colby Result HISTORICAL RESULTS * All Microbiology Report Section (04/04/2015 12:00 AM SKIN DRIER) 04/04/2015 Narrative HISTORICAL RESULTS - 04/10/2015 6:35 AM SKIN DRIER ? [facility] ?[address] [facility] ?[place], [place] [address] ? Patient Name: ??LEONAMBER MOHSEN Montero ? Med Rec Number: [id number] ? Fin Number: ?[id number] ? Date: ?1955 ? Sex/Age: ? Female 59 years ? Admit Date: ?04/05/2015 ? Discharge Date: 04/05/2015 ? Doctor: ?Medicine , ? Facility: ?[facility] ? Location: ?OTHER ?* Abnormal ??A Alert ??f Footnote ??^ Corrected ??L Low ??H High ?i Interp Data ??@ Ref Lab ? Chart Type:Cumulative ?* * * * MICROBIOLOGY - BLOOD/STERILE FLUID * * * * ?PROCEDURE: Culture, Blood ? SOURCE: Blood ? COLLECTED: 04/04/15 ??2306 ?BODY SITE: Wrist, right ? STARTED: 04/04/15 ??2338 ? FREE TEXT SOURCE: ? FINAL REPORT ? REPORTED: 04/10/15 0555 ? No growth ?* * * ??Interpretive [...] identification may be ? performed using the [employer] Nanosphere Gram Positive Blood ? Culture Assay. ??The Nanosphere assay detects microbial DNA in ? positive blood culture broth via hybridization of target DNA to ? capture oligonucleotides on a microarray. ??This assay has been ? cleared by the [place] Food and Drug Administration and ? its performance characteristics have been verified by the ? [facility].Current ? Interpretive Data was last revised on 2013. ? us Historical Provider MD LAB MICROBIOLOGY - GENERA L ORDERABLES Final Result HISTORICAL RESULTS * All Microbiology Report Section (04/04/2015 12:00 AM SKIN DRIER) 04/04/2015 Narrative HISTORICAL RESULTS - 04/10/2015 6:35 AM SKIN DRIER ? [facility] ?[address] [facility] ?[place], [place] [address] ? Patient Name: ??MOHSEN SALAZAR ? Med Rec Number: [id number] ? Fin Number: ?[id number] ? Date: ?1955 ? Sex/Age: ? Female 59 years ? Admit Date: ?04/05/2015 ? Discharge Date: 04/05/2015 ? Doctor: ?Medicine , ? Facility: ?[facility] ? Location: ?OTHER ?* Abnormal ??A Alert ??f Footnote ??^ Corrected ??L Low ??H High ?i Interp Data ??@ Ref Lab ? Chart Type:Cumulative ?* * * * MICROBIOLOGY - BLOOD/STERILE FLUID * * * * ?PROCEDURE: Culture, Blood ? SOURCE: Blood ? COLLECTED: 12/12/15 ??2306 ?BODY SITE: Hand, right ? STARTED: 12/12/15 ??2338 ? FREE TEXT SOURCE: ? FINAL REPORT ? REPORTED: 12/18/15 0555 ? No growth ?* * * ??Interpretive [...] identification may be ? performed using the [employer]uv[employer] Nanosphere Gram Positive Blood ? Culture Assay. ??The Nanosphere assay detects microbial DNA in ? positive blood culture broth via hybridization of target DNA to ? capture oligonucleotides on a microarray. ??This assay has been ? cleared by the [place] Food and Drug Administration and ? its performance characteristics have been verified by the ? [facility].Current ? Interpretive Data was last revised on 2013. ? us Historical Provider LAB MICROBIOLOGY - GENERA L ORDERABLES Final Result HISTORICAL RESULTS documented in this encounter Visit Diagnoses Diagnosis Dehydration Malignant neoplasm of female breast (HCC) Malignant neoplasm of breast (female), unspecified site Essential (primary) hypertension Unspecified essential hypertension Thyrotoxicosis without thyroid storm Anemia Unspecified anemia Palpitations Headache Obstructive sleep apnea Obstructive sleep apnea (adult) (pediatric) Restless legs syndrome Restless legs syndrome (RLS) Type 2 diabetes mellitus without complications (CMS/HCC) (HCC) Personal history of nicotine dependence Personal history of other venous thrombosis and embolism documented in this encounter Care Teams Podiatric Assistant Relationship Specialty Start Date End Date Antoinette Zhu MD [address] [facility] [address] [place] [address] PCP - General 08/01/13 07/26/16 documented as of this encounter
--- OUTSIDE RECORDS SUMMARY | 2024-04-26 04:32 | XMS_ITS | Encounter Summary ---
Author Organization [facility] Facility Care Team Providers Care Railroad Shop Inspector Name Role Phone Antoinette Zhu MD Primary Care Provider [phone] Encounter Details Date Type Department Care Team (Latest Contact Info) Description 02/14/2015 7:52 AM CDT - 02/14/2015 7:50 PM CDT Hospital Encounter [facility] Gastro-esophageal reflux disease without esophagitis; Other chest pain; Type 2 diabetes mellitus without complications (CMS/HCC); Essential (primary) hypertension; Personal history of malignant neoplasm of breast; Disorder of thyroid; Restless legs syndrome; Anxiety disorder; Calculus of kidney Social History Tobacco Use Types Packs/Day Years Used Date Smoking Tobacco: Former Alcohol Use Standard Drinks/Week Comments No 0 (1 standard drink = 0.6 oz pur e alcohol) Comments Unknown Sex and Gender Information Value Date Recorded Sex Assigned at Not on file Legal Sex Female 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 Gender Identity Not on file Sexual Orientation Not on file documented as of this encounter Last Filed Vital Signs Vital Sign Reading Time Taken Comments Blood Pressure 128/73 02/14/2015 6:30 PM CDT Pulse 81 02/14/2015 6:30 PM CDT Temperature - - Respiratory Rate - - Oxygen Saturation 100% 02/14/2015 6:30 PM CDT Inhaled Oxygen Concentration - - Weight 126.7 kg (279 lb 4.5 oz) 02/14/2015 8:10 AM CDT Height 154.9 cm (5' 1 ) 02/14/2015 8:10 AM CDT Body Mass Index 52.77 02/14/2015 8:10 AM CDT documented in this encounter Medications [...] 07/19/2013 02/24/2017 documented as of this encounter H&P Notes * Provider, MD Tyler - 02/13/2015 12:00 AM CDT Patient: Mohsen Salazar Reg No: [id number] H #: [id number] Admit Dt.: 02/13/2015 : 1955 Room No: Attending: Hannah Youngblood M.D. Dictating: Hannah Youngblood M.D. ADMISSION HISTORY PHYSICAL Admission Diagnosis (es): ____ Chief Complaint: Shortness of breath. History of Present Illness: Ms Salazar is a 59-year-old female with past medical history of breast cancer, status post mastectomy, currently on radiation therapy as well as diabetes and hypertension, presents to [facility] for further evaluation of shortness of breath. Per report, the patient first developed shortness of breath about 2-3 days ago. She notes dyspnea on exertion with only minimal activity. She also notes orthopnea as well as paroxysmal nocturnal dyspnea, which has been going on for the same time. She does have a history of LUL, but per report, has been using her CPAP at 12. Additionally, she notes a sensation in her chest of someone pushing the air out, and she describes an additional sensation as feeling like something is in there. While in the emergency department, the patient was noted to have an SpO2 of 98% to 99% on room air. Additionally, she had a temperature of 36. She denies any sick contacts at home. Chest x-ray was done and demonstrated no acute consolidation on my review. I also reviewed the preliminary report in [facility], which confirmed that the lungs are clear without focal consolidation with the exception of right basilar atelectasis. Chest CT was also done, which demonstrated no pulmonary embolus. Patchy atelectasis within the lungs was noted, but there was no pleural effusion or pneumothorax, or suspicious pulmonary nodules. Additionally, no pericardial effusion was noted. A 4 mm renal stone in the upper pole of the right kidney was noted. Beta natriuretic peptide was less than 5. A CBC demonstrated a WBC count of 9.1. Troponin was less than 0.03 at 12:21 a.m. and at 3:05 a.m. Given the patient's complaints of dyspnea, she was admitted to the hospitalist medicine service for further evaluation and care. I reviewed previous Clinical Desktop data as well as the ED summary, which I have summarized in this note. While in emergency department, the patient did receive 4 tablets of 81 mg aspirin, IV fentanyl, and morphine. Past Medical/Surgical History: 1. History of breast cancer, status post mastectomy, currently on radiation therapy. 2. Cholecystectomy. 3. Hernia repair. 4. Right knee replacement. 5. section x3. 6. Diabetes. 7. Hypertension. 8. Thyroid disease. 9. Restless leg. 10. Anxiety. Medications: Reviewed and updated in [facility]. Please refer to COMPASS documentation for medication list. Allergies: The patient reports increased symptoms of her restless leg associated with Toradol and Reglan administration. Cephalosporins cause difficulty breathing. Family Medical History: Significant for sister with breast cancer at age 58. She had a second sister with breast cancer age 51. Additionally, she had a brother with metastatic colorectal cancer in his 50s. Her father was diagnosed with prostate cancer. Social History: The patient currently lives in [place]. She did smoke tobacco products, but quit prior to or around 1979. She denies any alcohol or drug use. Review of Systems: As per HPI. Otherwise, all other review of systems are negative. Physical Examination: Vital Signs: Temperature 36, heart rate 86, respiratory rate of 20, blood pressure 152/79, oxygen saturation of 98% on room air. General: She is pleasant and cooperative. She was alert and oriented. Respiratory: Lungs are clear to auscultation bilaterally, though she demonstrated decreased breath sounds throughout. Heart: Regular rate and rhythm. Abdomen: Soft, positive bowel sounds. It was obese, but nontender. Skin: She did have erythema to her chest. HEENT: She was normocephalic, atraumatic. Extraocular muscles are intact. Mucous membranes are moist. Neck: Supple. There was no cervical lymphadenopathy. Neurologic: She has 5/5 strength in bilateral upper extremities with normal arranger assembler bilaterally. She was able to move her legs, though strength testing on the left was limited secondary to the weight of the cast. She had normal sensation in her right lower extremity. She noted decreased sensation in her toes of her left foot, though I could not reach her fifth toe with the cast that is present. She had less than 2 second capillary refill in her hands bilaterally as well as her right foot and the toes I could reach in the cast of her left foot. Affect was congruent with mood. Speech was clear and fluent. Laboratory And X-Ray Data: 1. Chest x-ray, on my review, demonstrated no acute consolidation. I also reviewed the preliminary report in Clinical Desktop, which demonstrated minimal right basal atelectasis with otherwise clear lungs without focal consolidation. 2. TSH 0.03. The T4 of 1.2. 3. Troponin is less than 0.03. 4. PTT 36.1 with an INR of 1.43 and a PT of 15.5. 5. CBC: WBC 9.1, hemoglobin 12.6, and a platelet count of 293,000. 6. Beta natriuretic peptide less than 5. 7. Basic metabolic panel normal. 8. Chest CT with no pulmonary embolus. Impression and Plan: 1. Dyspnea. The patient presents with a 2-3 day history of orthopnea, paroxysmal nocturnal dyspnea, as well as dyspnea on exertion. She did have a transthoracic echocardiogram from October 20, 2014, which demonstrated normal LV systolic function with an ejection fraction of 55% to 70%, as well as normal diastolic function. The patient is currently receiving radiation therapy. She does currently deny any fever, including other signs of possible infection. Additionally, the patient was recently diagnosed with a DVT. However, she did undergo CT chest imaging which was negative for pulmonary embolus. At this point, there was some concern that perhaps the shortness of breath and dyspnea may be related to the radiation she has been receiving. She is being admitted for further evaluation and care. We will consider sending the patient for pulmonary function testing, though this may be done as an outpatient if she is symptomatically improved over the weekend. However, she does note that she is only able to walk minimal distances without becoming short of breath. She does have a cast currently on and does use a walker at home. We will monitor the patient and attempt to evaluate her oxygen need with activity prior to discharge. However, the CT scan was only notable for patchy atelectasis within the lungs. We will consider further evaluation with continued clinical monitoring. 2. Breast cancer. We will continue the patient's home medication and monitor. We will also encouraged her to follow up with her outpatient oncologist. Depending on how long she is here, we will consider re-consulting Radiation Oncology to continue radiation therapy while hospitalized. 3. Diabetes. We will hold the patient's oral diabetes medication and place her on sliding-scale insulin with Accu-Cheks. We will consider initiation of scheduled insulin based on Accu-Chek results and sliding-scale insulin use. 4. Restless leg. We will continue the patient's home medication and monitor. 5. Hypertension. We will continue the patient's home medication and monitor. Unreviewed Avery Whitehead Ma/verito #[id number] Editing MT: TD: 02/14/2015 07:27:18 cc: Hannah Youngblood M.D. * Provider, MD Tyler - 02/13/2015 12:00 AM CDT Patient: MOHSEN SALAZAR Reg No: [id number] [facility] #: [id number] Admit Dt.: 02/13/2015 : 1955 Room No: Attending: Hannah Youngblood M.D. Dictating: Hannah Youngblood M.D. ADMISSION HISTORY AND PHYSICAL Shortness of breath. History of Present Illness: Ms Salazar is a 59-year-old female with past medical history of breast cancer, status post mastectomy, currently on radiation therapy as well as diabetes and hypertension, who presents to [facility] for further evaluation of shortness of breath. Per report, the patient first developed shortness of breath about 2-3 days ago. She notes dyspnea on exertion with only minimal activity. She also notes orthopnea as well as paroxysmal nocturnal dyspnea, which has been going on for the same time. She does have a history of LUL, and per report, has been using her CPAP at 12. Additionally, she notes a sensation in her chest of someone pushing the air out, and she describes an additional sensation as feeling like something is in there. While in the emergency department, the patient was noted to have an SpO2 of 98% to 99% on room air. Additionally, she had a temperature of 36. She denies any sick contacts at home. Chest x-ray was done and demonstrated no acute consolidation on my review. I also reviewed the preliminary report in Clinical Desktop, which confirmed that the lungs are clear without focal consolidation with the exception of right basilar atelectasis. Chest CT was also done, which demonstrated no pulmonary embolus. Patchy atelectasis within the lungs was noted, but there was no pleural effusion or pneumothorax, or suspicious pulmonary nodules. Additionally, no pericardial effusion was noted. A 4 mm renal stone in the upper pole of the right kidney was noted. Beta natriuretic peptide was less than 5. A CBC demonstrated a WBC count of 9.1. Troponin was less than 0.03 at 12:21 a.m. and at 3:05 a.m. Given the patient's complaints of dyspnea, she was admitted to the hospitalist medicine service for further evaluation and care. I reviewed previous Clinical Desktop data as well as the ED summary, which I have summarized in this note. While in emergency department, the patient did receive 4 tablets of 81 mg aspirin, IV fentanyl, and morphine. Past Medical/Surgical History: 1. History of breast cancer, status post mastectomy, currently on radiation therapy. 2. Cholecystectomy. 3. Hernia repair. 4. Right knee replacement. 5. section x3. 6. Diabetes. 7. Hypertension. 8. Thyroid disease. 9. Restless leg. 10. Anxiety. Medications: Reviewed and updated in COMPASS. Please refer to COMPASS documentation for medication list. Allergies: The patient reports increased symptoms of her restless leg associated with Toradol and Reglan administration. Cephalosporins cause difficulty breathing. Family Medical History: Significant for sister with breast cancer at age 58. She had a second sister with breast cancer age 51. Additionally, she had a brother with metastatic colorectal cancer in his 50s. Her father was diagnosed with prostate cancer. Social History: The patient currently lives in [place]. She did smoke tobacco products, but quit prior to or around 1979. She denies any alcohol or drug use. Review of Systems: As per HPI. Otherwise, all other review of systems are negative. Physical Examination: Vital Signs: Temperature 36, heart rate 86, respiratory rate of 20, blood pressure 152/79, oxygen saturation of 98% on room air. General: She is pleasant and cooperative. Respiratory: Lungs are clear to auscultation bilaterally, though she demonstrated decreased breath sounds throughout. Heart: Regular rate and rhythm. Abdomen: Soft, positive bowel sounds. It was obese, but nontender. Skin: She did have erythema to her chest. HEENT: She was normocephalic, atraumatic. Extraocular muscles are intact. Mucous membranes are moist. Neck: Supple. There was no cervical lymphadenopathy. Neurologic: She was alert and oriented. She had normal sensation in her right lower extremity. She noted decreased sensation in her toes of her left foot, though I could not reach her fifth toe with the cast that is present. Extremity: She has 5/5 strength in bilateral upper extremities with normal arranger assembler bilaterally. She was able to move her legs, though strength testing on the left was limited secondary to the weight of the cast. She had less than 2 second capillary refill in her hands bilaterally as well as her right foot and the toes I could reach in the cast of her left foot. Psychiatric: Affect was congruent with mood. Speech was clear and fluent. Laboratory And X-Ray Data: 1. Chest x-ray, on my review, demonstrated no acute consolidation. I also reviewed the preliminary report in Clinical Desktop, which demonstrated minimal right basal atelectasis with otherwise clear lungs without focal consolidation. 2. TSH 0.03. The T4 of 1.2. 3. Troponin is less than 0.03. 4. PTT 36.1 with an INR of 1.43 and a PT of 15.5. 5. CBC: WBC 9.1, hemoglobin 12.6, and a platelet count of 293,000. 6. Beta natriuretic peptide less than 5. 7. Basic metabolic panel normal. 8. Chest CT with no pulmonary embolus. Impression and Plan: 1. Dyspnea. The patient presents with a 2-3 day history of orthopnea, paroxysmal nocturnal dyspnea, as well as dyspnea on exertion. She did have a transthoracic echocardiogram from October 20, 2014, which demonstrated normal LV systolic function with an ejection fraction of 55% to 70%, as well as normal diastolic function. The patient is currently receiving radiation therapy. She does currently deny any fever, including other signs of possible infection. Additionally, the patient was recently diagnosed with a DVT. However, she did undergo CT chest imaging which was negative for pulmonary embolus. At this point, there was some concern that perhaps the shortness of breath and dyspnea may be related to the radiation she has been receiving. She is being admitted for further evaluation and care. We will consider sending the patient for pulmonary function testing, though this may be done as an outpatient if she is symptomatically improved over the weekend. However, she does note that she is only able to walk minimal distances without becoming short of breath. She does have a cast currently on and does use a walker at home. We will monitor the patient and attempt to evaluate her oxygen need with activity prior to discharge. However, the CT scan was only notable for patchy atelectasis within the lungs. We will consider further evaluation with continued clinical monitoring. 2. Breast cancer. We will continue the patient's home medication and monitor. We will also encouraged her to follow up with her outpatient oncologist. Depending on how long she is here, we will consider consulting Radiation Oncology to continue radiation therapy while hospitalized. 3. Diabetes. We will hold the patient's oral diabetes medication and place her on sliding-scale insulin with Accu-Cheks. We will consider initiation of scheduled insulin based on Accu-Chek results and sliding-scale insulin use. 4. Restless leg. We will continue the patient's home medication and monitor. 5. Hypertension. We will continue the patient's home medication and monitor. Electronically Authenticated and Edited by: Hannah Taveras MD On 03/13/2015 07:35 AM AUTO PARKER Avery Whitehead:verito #[id number] Editing MT: verito TD: 02/14/2015 07:27 AM cc: Hannah Youngblood M.D. documented in this encounter Plan of Treatment Not on file documented as of this encounter Procedures Procedure Name Priority Date/Time Associated Diagnosis Comments BLOOD GLUCOSE, POC Routine 02/14/2015 5: 07 PM CDT BLOOD GLUCOSE, POC Routine 02/14/2015 11 :24 AM CDT BLOOD GLUCOSE, POC Routine 02/14/2015 8: [address] CHEST W CONTRAST Routine 02/14/2015 4 :50 AM CDT SERUM TROPONIN I Routine 02/14/2015 3:05 AM CDT SERUM TROPONIN I Routine 02/14/2015 12:2 1 AM CDT SERUM THYROXINE (T4), FREE Routine 02/14/2015 12:21 AM CDT SERUM THYROID-STIMULATING HORMONE (TSH) Routine 02/14/2015 12:21 AM CDT PLASMA PROTHROMBIN TIME (PT) Routine 02/14/2015 12:21 AM CDT PLASMA PARTIAL THROMBOPLASTIN TIME (PTT) Routine 02/14/2015 12:21 AM CDT PLASMA BASIC METABOLIC PANEL Routine 02/14/2015 12:21 AM CDT BLOOD B-TYPE NATRIURETIC PEPTIDE (BNP) Routine 02/14/2015 12:21 AM CDT BLOOD CELL COUNT (CBC) Routine 5 12:21 AM CDT CHEST RADIOGRAPHY, FRONTAL (AP), LATERAL Routine 02/13/2015 11:53 PM CDT BLOOD GLUCOSE, POC Routine 02/13/2015 9: 14 PM CDT documented in this encounter Results * Blood glucose, POC (02/14/2015 5:07 PM CDT) Glucose, POC, bld 94 70 - 199 mg/dl HISTORICAL RESULTS Blood specimen (specimen) 02/14/2015 5:07 PM CDT Nehemias Aranda MD LAB BLOOD ORDERABLES Final Result Performing Organization Address [facility] Co de Phone Number HISTORICAL RESULTS * Blood glucose, POC (02/14/2015 11:24 AM CDT) Glucose, POC, bld 180 70 - 199 mg/dl HISTORICAL RESULTS Blood specimen (specimen) 02/14/2015 11:24 AM CDT Nehemias Aranda MD LAB BLOOD ORDERABLES Final Result HISTORICAL RESULTS * Blood glucose, POC (02/14/2015 8:47 AM CDT) Glucose, POC, bld 116 70 - 199 mg/dl HISTORICAL RESULTS Blood specimen (specimen) 02/14/2015 8:47 AM CDT Nehemias Aranda MD LAB BLOOD ORDERABLES Final Result HISTORICAL RESULTS * CT Chest W Contrast (02/14/2015 4:50 AM CDT) Anatomical Region Laterality Modality Body N/A Computed Tomogra phy 02/14/2015 4:50 AM CDT Narrative 02/14/2015 1:40 PM CDT Avery BEAUCHAMP M.D. FINAL REPORT The radiology attending physician has personally reviewed this study, and has reviewed and/or edited this written report and agrees with it. ACC# ??Date Time ??Exam [id number] Feb 14, 2015 04:50:[id number] Chest with contrast EXAMINATION: ?? CT Chest with contrast HISTORY: 59-year-old female with breast cancer status post mastectomy complicated by DVT and PE presents with pleuritic chest pain. TECHNIQUE: Computed tomography of the chest was performed following the uneventful administration of 122 ml of Optiray 350 according to PE protocol. COMPARISON: 01/06/2015 FINDINGS: There is patchy atelectasis within the lungs. There is no pleural effusion or pneumothorax. No suspicious pulmonary nodule. There is no pulmonary embolism. The great vessels are normal in course and caliber. Multinodular goiter is unchanged from prior. The heart is normal in size. There is no pericardial effusion. There is no axillary, supraclavicular, mediastinal, or hilar lymphadenopathy. Visible portions of the liver, spleen, pancreas, adrenal glands, and left kidney appear normal. There is a 4 mm renal stone in the upper pole the right kidney. The gallbladder is surgically absent. The visible bowel is normal in caliber. IMPRESSION: ?? No pulmonary embolism. Requested By: MELISSA SHAH M.D. Dictated By: ?? NIYAH FELICIANO M.D. ??on Feb 14 2015 ??5:28A This document has been electronically signed by: KAMERON WATERS M.D. on Feb 14 2015 ??1:40P [id number] Procedure Note Provider, MD Tyler - 08/12/2016 Avery BEAUCHAMPLEWICZ, M.D. FINAL REPORT The radiology attending physician has personally reviewed this study, and has reviewed and/or edited this written report and agrees with it. [facility]# Date Time Exam [id number] Feb 14, 2015 04:50:[id number] Chest with contrast EXAMINATION: CT Chest with contrast HISTORY: 59-year-old female with breast cancer status post mastectomy complicated by DVT and PE presents with pleuritic chest pain. TECHNIQUE: Computed tomography of the chest was performed following the uneventful administration of 122 ml of Optiray 350 according to PE protocol. COMPARISON: 01/06/2015 FINDINGS: There is patchy atelectasis within the lungs. There is no pleural effusion or pneumothorax. No suspicious pulmonary nodule. There is no pulmonary embolism. The great vessels are normal in course and caliber. Multinodular goiter is unchanged from prior. The heart is normal in size. There is no pericardial effusion. There is no axillary, supraclavicular, mediastinal, or hilar lymphadenopathy. Visible portions of the liver, spleen, pancreas, adrenal glands, and left kidney appear normal. There is a 4 mm renal stone in the upper pole the right kidney. The gallbladder is surgically absent. The visible bowel is normal in caliber. IMPRESSION: No pulmonary embolism. Requested By: MELISSA SHAH M.D. Dictated By: NIYAH FELICIANO M.D. on Feb 14 2015 5:28A This document has been electronically signed by: KAMERON WATERS M.D. on Feb 14 2015 1:40P [id number] us Historical Provider MD GARCIA CT PROCEDURES Final R esult * Serum troponin I (02/14/2015 3:05 AM CDT) Troponin I <0.03 0.00 - 0.03 ng/ml HISTORICAL RESULTS Comment: Interpretive Data Serial determinations are recommended for the diagnosis of myocardial infarction ([place] Definition of Myocardial Infarction. ??J Am Wang Cardiol 2012;60:1581-98). Current interpretive data was last revised on 13. Serum 02/14/2015 3:05 AM CDT Result [facility] Idalia Lu MD LAB BLOOD ORDERABLES Deann l Result Performing Organization Address [facility] de Phone Number HISTORICAL RESULTS * (ABNORMAL) Serum thyroid-stimulating hormone (TSH) (02/14/2015 12:21 AM CDT) TSH 0.03(L) 0.35 - 5.50 mcIUnits/ ml HISTORICAL RESULTS Comment: Interpretive Data Hyperthyroid: ??<0.1 mcIUnit/mL Hypothyroid: ??>12.0 mcIUnit/mL Current interpretive data was last revised on 00. Serum 02/14/2015 12:2 1 AM CDT Idalia Lu MD LAB BLOOD ORDERABLES Deann l Result Performing Organization Address [facility] Phone Number HISTORICAL RESULTS * Serum thyroxine (T4), free (02/14/2015 12:21 AM CDT) Free T4 1.20 0.90 - 1.80 ng/dl HISTORICAL RESULTS Serum 02/14/2015 12:2 1 AM CDT Idalia Lu MD LAB BLOOD ORDERABLES Deann l Result Performing Organization Address [facility] Phone Number HISTORICAL RESULTS * Plasma partial thromboplastin time (PTT) (02/14/2015 12:21 AM CDT) APTT 36.1 25.0 - 37.0 seconds HISTORICAL RESULTS Comment: Interpretive Data Therapeutic heparin range:60.0 - 94.0 sec based on correlation with therapeutic heparin activity range of 0.3 -0.7 Units/mL. Current interpretive data was last revised on 2011. Plasma 02/14/2015 12:2 1 AM CDT Idalia Lu MD LAB BLOOD ORDERABLES Deann l Result Performing Organization Address [facility] de Phone Number HISTORICAL RESULTS * Plasma basic metabolic panel (02/14/2015 12:21 AM CDT) Sodium 136 135 - 145 mmol/L HISTORICAL RESULTS K, pl 4.2 3.3 - 4.9 mmol/L HISTORICAL RESULTS Chloride 99 97 - 110 mmol/L HISTORICAL RESULTS CO2 25 22 - 32 mmol/L HISTORICAL RESULTS A. gap 12 0 - 16 mmol/L HISTORICAL RESULTS Glucose 187 70 - 199 mg/dl HISTORICAL RESULTS BUN 18 8 - 25 mg/dl HISTORICAL RESULTS Creatinine 0.70 0.60 - 1.10 mg/dl HISTORICAL RESULTS Calcium 9.7 8.6 - 10.3 mg/dl HISTORICAL RESULTS Plasma 02/14/2015 12:2 1 AM CDT Idalia Lu MD LAB BLOOD ORDERABLES Deann l Result Performing Organization Address [facility] de Phone Number HISTORICAL RESULTS * Serum troponin I (02/14/2015 12:21 AM CDT) Troponin I <0.03 0.00 - 0.03 ng/ml HISTORICAL RESULTS Comment: Interpretive Data Serial determinations are recommended for the diagnosis of myocardial infarction ([place] Definition of Myocardial Infarction. ??J Am Wang Cardiol 2012;60:1581-98). Current interpretive data was last revised on 13. Serum 02/14/2015 12:2 1 AM CDT Idalia Lu MD LAB BLOOD ORDERABLES Deann l Result Performing Organization Address [facility] Co de Phone Number HISTORICAL RESULTS * (ABNORMAL) Plasma prothrombin time (PT) (02/14/2015 12:21 AM CDT) Prothrombin time (PT) 15.5(H) 9.2 - 13.0 seconds HISTORICAL RESULTS INR 1.43(H) 0.90 - 1.20 HISTORIC AL RESULTS Comment: Interpretive Data Inpatient therapeutic ranges* Atrial fibrillation ?2.0-3.0 INR Venous thrombo-embolism ?2.0-3.0 INR Bioprosthetic heart valve ?* Mechanical heart valve, bileaflet or tilting disk,aortic position ? 2.0-3.0 INR All other,or bileaflet or tilting disk, in mitral position ? 2.5-3.5 INR *See the pharmacy resource directory (PHRED) for an updated copy of the Tool Book at [email or web address] Current Interpretive Data was last revised 2011. Plasma 02/14/2015 12:2 1 AM CDT us Idalia Lu MD LAB BLOOD ORDERABLES Deann bowman Result HISTORICAL RESULTS * (ABNORMAL) Blood cell count (CBC) (02/14/2015 12:21 AM CDT) WBC 9.1 3.8 - 9.8 K/cumm HISTORICAL RESULTS RBC 4.74 3.90 - 5.00 M/cumm HISTORICAL RESULTS Hgb 12.6 12.1 - 15.1 g/dl HISTORICAL RESULTS Hct 39.7 36.1 - 44.3 % HISTORICAL RESULTS MCV 83.8 80.0 - 97.6 fl HISTORICAL RESULTS MCH 26.5(L) 26.7 - 33.7 pg HISTORICAL RESULTS MCHC 31.7(L) 32.7 - 35.5 g/dl HISTORICAL RESULTS Rdw 16.0(H) 11.8 - 14.6 % HISTORICAL RESULTS Platelets 293 140 - 440 K/cumm HISTORICAL RESULTS MPV 8.1 6.8 - 10.4 fl HISTORICAL RESULTS Neutrophils 69.1 38.7 - 74.5 % HISTORICAL RESULTS Lymphocytes 18.0(L) 20.0 - 54.3 % HISTORICAL RESULTS Monos 6.8 4.3 - 13.5 % HISTORICAL RESULTS Eosinophils 5.8 0.0 - 6.0 % HISTORICAL RESULTS Basophils 0.3 0.0 - 3.0 % HISTORICAL RESULTS Neutrophils, abs 6.3 1.8 - 6.6 K/cumm HISTORICAL RESULTS Lymphocytes, abs 1.6 1.2 - 3.3 K/cumm HISTORICAL RESULTS Monocytes, absolute 0.6 0.2 - 1.2 K/cumm HISTORICAL RESULTS Eosinophils, abs 0.5 0.0 - 0.5 K/cumm HISTORICAL RESULTS Basophils, abs 0.0 0.0 - 0.2 K/cumm HISTORICAL RESULTS Blood specimen (specimen) 02/14/2015 12:21 AM CDT Idalia Lu MD LAB BLOOD ORDERABLES Deann l Result Performing Organization Address [facility] de Phone Number HISTORICAL RESULTS * Blood B-type natriuretic peptide (BNP) (02/14/2015 12:21 AM CDT) BNP <5 0 - 100 pg/ml HISTORICAL RESULTS Blood specimen (specimen) 02/14/2015 12:21 AM CDT Idalia Lu MD LAB BLOOD ORDERABLES Deann l Result Performing Organization Address [facility] Co de Phone Number HISTORICAL RESULTS * CHEST RADIOGRAPHY, FRONTAL (AP), LATERAL (02/13/2015 11:53 PM CDT) Anatomical Region Laterality Modality N/A Radiographic Lizeth ging 02/13/2015 11:5 3 PM CDT Narrative 02/14/2015 1:20 PM CDT KAMERON WATERS M.D. DORY ENAMORADO M.D. FINAL REPORT The radiology attending physician has personally reviewed this study, and has reviewed and/or edited this written report and agrees with it. ACC# ??Date Time ??Exam [id number] Feb 13, 2015 23:53:00 [id number] Chest 2 views Frontl & Lat EXAMINATION: ?Chest 2 views HISTORY: ??Dyspnea, chest pain FINDINGS: ?? Comparison is made to 01/06/2015. There is minimal right basilar atelectasis. ??Otherwise the lungs are clear without focal consolidation. ??No pneumothorax or pleural effusion. ??The cardiomediastinal silhouette is within normal limits. IMPRESSION: ?? Minimal right basilar atelectasis. Requested By: IDALIA LU M.D. Dictated By: ?? DORY ENAMORADO M.D. ??on Feb 14 2015 ??2:36A This document has been electronically signed by: KAMERON WATERS M.D. on Feb 14 2015 ??1:20P [id number] Procedure Note Provider, MD Tyler - 08/12/2016 KAMERON WATERS M.D. DORY ENAMORADO M.D. FINAL REPORT The radiology attending physician has personally reviewed this study, and has reviewed and/or edited this written report and agrees with it. ACC# Date Time Exam [id number] Feb 13, 2015 23:53:00 [id number] Chest 2 views Frontl & Lat EXAMINATION: Chest 2 views HISTORY: Dyspnea, chest pain FINDINGS: Comparison is made to 01/06/2015. There is minimal right basilar atelectasis. Otherwise the lungs are clear without focal consolidation. No pneumothorax or pleural effusion. The cardiomediastinal silhouette is within normal limits. IMPRESSION: Minimal right basilar atelectasis. Requested By: IDALIA LU M.D. Dictated By: DORY ENAMORADO M.D. on Feb 14 2015 2:36A This document has been electronically signed by: KAMERON WATERS M.D. on Feb 14 2015 1:20P [id number] Historical Provider IMG XR PROCEDURES Final R esult * Blood glucose, POC (02/13/2015 9:14 PM CDT) Glucose, POC, bld 162 70 - 199 mg/dl HISTORICAL RESULTS Blood specimen (specimen) 02/13/2015 9:14 PM CDT Historical Provider LAB BLOOD ORDERABLES Deann l Result HISTORICAL RESULTS documented in this encounter Visit Diagnoses Diagnosis Gastro-esophageal reflux disease without esophagitis Other chest pain Type 2 diabetes mellitus without complications (CMS/HCC) (HCC) Essential (primary) hypertension Unspecified essential hypertension Personal history of malignant neoplasm of breast Disorder of thyroid Unspecified disorder of thyroid Restless legs syndrome Restless legs syndrome (RLS) Anxiety disorder Anxiety state, unspecified Calculus of kidney documented in this encounter 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
--- OUTSIDE RECORDS SUMMARY | 2024-04-26 04:32 | XMS_ITS | Encounter Summary ---
Author Organization [facility] Facility Care Team Providers Care Canvass Manager Name Role Phone Antoinette Zhu MD Primary Care Provider [phone] Encounter Details Date Type Department Care Team (Late st Contact Info) Description 11/25/2015 12:51 AM CDT - 11/28/2015 1:35 PM T Hospital Encounter [facility]ie Charles MD [facility] [address] [place] [address] Disease of stomach and duodenum; Type 2 diabetes mellitus with diabetic neuropathy (CMS/HCC); Malignant neoplasm of female breast (CMS/HCC); Calculus of ureter; Body mass index (BMI) of 50-59.9 in adult (CMS/HCC); Essential (primary) hypertension; Gastro-esophageal reflux disease without esophagitis; Hypothyroidism; Obstructive sleep apnea; Restless legs syndrome; Cigarette nicotine dependence in remission; Calculus of kidney; Acquired absence of other specified parts of digestive tract; Morbid (severe) obesity due to excess calories (HCC); care home current use of selective estrogen receptor modulators (SERMs); Estrogen receptor positive tumor status; 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; Personal history of other venous thrombosis and embolism; Personal history of pulmonary embolism; Allergy status to narcotic agent; Allergy status to other antibiotic agents status Social History Tobacco Use Types Packs/Day Years Used Date Smoking Tobacco: Former Alcohol Use Standard Drinks/Week Comments No 0 (1 standard drink = 0.6 oz pur e alcohol) Comments Unknown Sex and Gender Information Value Date Recorded Sex Assigned at Not on file Legal Sex Female 12:24 AM [employer] Gender Identity Not on file Sexual Orientation Not on file documented as of this encounter Last Filed Vital Signs Vital Sign Reading Time Taken Comments Blood Pressure 138/84 11/28/2015 9:30 AM CDT Pulse 69 11/28/2015 9:30 AM CDT Temperature - - Respiratory Rate - - Oxygen Saturation 97% 11/28/2015 9:30 AM CDT Inhaled Oxygen Concentration - - Weight 128.5 kg (283 lb 4.7 oz) 11/25/2015 5:00 AM CDT Height 154.9 cm (5' 1 ) 11/25/2015 1:00 AM CDT Body Mass Index 53.53 11/25/2015 1:00 AM CDT documented in this encounter Medications [...] Associated Diagnosis Comments BLOOD GLUCOSE, POC Routine 11/28/2015 12 :04 PM CDT BLOOD GLUCOSE, POC Routine 11/28/2015 8: 16 AM CDT DISCHARGE LABORATORY CUMULATIVE REPORT 11/28/2015 BLOOD GLUCOSE, POC Routine 11/27/2015 8: 12 PM CDT BLOOD GLUCOSE, POC Routine 11/27/2015 4: 53 PM CDT XR ABDOMEN 2 VW Routine 11/27/2015 2:50 PM CDT BLOOD GLUCOSE, POC Routine 11/27/2015 11 :57 AM CDT BLOOD GLUCOSE, POC Routine 11/27/2015 9: 35 AM CDT US TRANSVAGINAL Routine 11/27/2015 9:10 AM CDT SERUM TISSUE TRANSGLUTIMASE Routine 11/26/2015 9:08 PM CDT SERUM TISSUE TRANSGLUTAMINASE (TTG) AB Routine 11/26/2015 9:08 PM CDT SERUM THYROID-STIMULATING HORMONE (TSH) Routine 11/26/2015 9:08 PM CDT SERUM IRON PROFILE Routine 11/26/2015 9: 08 PM CDT SERUM FERRITIN Routine 11/26/2015 9:08 PM CDT SERUM ANTIGLIADIN AB Routine 11/26/2015 9:08 PM CDT BLOOD GLUCOSE, POC Routine 11/26/2015 9: 08 PM CDT BLOOD CELL COUNT (CBC) Routine 6 9:08 PM CDT BLOOD CELL MORPHOLOGIC EXAM Routine 11/26/2015 9:08 PM CDT BLOOD GLUCOSE, POC Routine 11/26/2015 5: 19 PM CDT BLOOD GLUCOSE, POC Routine 11/26/2015 11 :49 AM CDT BLOOD GLUCOSE, POC Routine 11/26/2015 8: 07 AM CDT PLASMA BASIC METABOLIC PANEL Routine 11/25/2015 9:23 PM CDT BLOOD CELL COUNT (CBC) Routine 6 9:23 PM CDT BLOOD CELL MORPHOLOGIC EXAM Routine 11/25/2015 9:23 PM CDT BLOOD GLUCOSE, POC Routine 11/25/2015 9: 22 PM CDT PLASMA LACTIC ACID Routine 11/25/2015 5: 41 PM CDT BLOOD GLUCOSE, POC Routine 11/25/2015 5: 30 PM CDT BLOOD GLUCOSE, POC Routine 11/25/2015 11 :53 AM CDT BLOOD GLUCOSE, POC Routine 11/25/2015 7: 55 AM CDT BLOOD GLUCOSE, POC Routine 11/25/2015 1: 04 AM CDT URINE MICROSCOPY Routine 11/24/2015 7:00 PM CDT URINALYSIS Routine 11/24/2015 7:[address] ABDOMEN PELVIS W CONTRAST Routine 11/24/2015 6:26 PM CDT SERUM LIPID PANEL Routine 11/24/2015 12: 28 PM CDT SERUM LIPASE Routine 11/24/2015 12:28 PM CDT PLASMA HEPATIC FUNCTION PANEL Routine 11/24/2015 12:28 PM CDT PLASMA BASIC METABOLIC PANEL Routine 11/24/2015 12:28 PM CDT BLOOD HEMOGLOBIN A1C Routine 11/24/2015 12:28 PM CDT BLOOD CELL COUNT (CBC) Routine 6 12:28 PM CDT BLOOD ABO, RH, INDIRECT AB SCREEN Routine 11/24/2015 12:28 PM CDT BLOOD CELL MORPHOLOGIC EXAM Routine 11/24/2015 12:28 PM CDT BLOOD GLUCOSE, POC Routine 11/24/2015 12 :09 PM CDT documented in this encounter Results * Blood glucose, POC (11/28/2015 12:04 PM CDT) Glucose, POC, bld 91 70 - 199 mg/dl CDR HISTORICAL RESULTS Blood specimen (specimen) 11/28/2015 12:04 PM CDT Evie Woo MD LAB BLOOD ORDERABLES Final R [facility] Performing Organization Address [facility] Co de Phone Number CDR HISTORICAL RESULTS * Blood glucose, POC (11/28/2015 8:16 AM CDT) Glucose, POC, bld 144 70 - 199 mg/dl CDR HISTORICAL RESULTS Blood specimen (specimen) 11/28/2015 8:16 AM CDT Evie Woo MD LAB BLOOD ORDERABLES Final R esult CDR HISTORICAL RESULTS * DISCHARGE LABORATORY CUMULATIVE REPORT (11/28/2015) Narrative 11/28/2015 Ordered by an unspecified provider. Historical Provider LAB BLOOD ORDERABLES Deann l Result * Blood glucose, POC (11/27/2015 8:12 PM CDT) Glucose, POC, bld 127 70 - 199 mg/dl CDR HISTORICAL RESULTS Blood specimen (specimen) 11/27/2015 8:12 PM CDT Evie Woo MD LAB BLOOD ORDERABLES Final R esult CDR HISTORICAL RESULTS * Blood glucose, POC (11/27/2015 4:53 PM CDT) Glucose, POC, bld 111 70 - 199 mg/dl CDR HISTORICAL RESULTS Blood specimen (specimen) 11/27/2015 4:53 PM CDT Evie Woo MD LAB BLOOD ORDERABLES Final R esult Performing Organization Address [facility] Co de Phone Number CDR HISTORICAL RESULTS * XR Abdomen 2 VW (11/27/2015 2:50 PM CDT) Anatomical Region Laterality Modality Body N/A Radiographic Lizeth ging 11/27/2015 2:50 PM CDT Narrative 11/27/2015 3:46 PM CDT FRANCESCA JONES M.D. DAYDAY DARLING M.D. FINAL REPORT The radiology attending physician has personally reviewed this study, and has reviewed and/or edited this written report and agrees with it. ACC# ??Date Time ??Exam [id number] Nov 27, 2015 14:50:00 [id number] Abdmn wi Decub &/or Erect EXAMINATION: ?Abdomen, single view AP. HISTORY: ??60-year-old female with post prandial epigastric pain, concern for partial small bowel junction. IMPRESSION: ?Portable upright and supine AP views of the abdomen submitted. ??There are multiple surgical suture anchors in the pelvis from hernia repair surgery. ??There are surgical clips in the right upper quadrant from cholecystectomy. ??Visualized bowel gas pattern is normal. ?? The stomach is mostly filled with fluid consistent with post prandial status. ??Small bowel and colon are nondilated. ??No peritoneal free air. ?? Requested By: ALLEN DE M.D. Dictated By: ?? DAYDAY DARLING M.D. ??on Nov?2015 ??3:45P This document has been electronically signed by: FRANCESCA JONES M.D. on Nov ??2015 ??3:46P [id number] Procedure Note Provider, MD Tyler - 08/12/2016 Avery GAYTAN M.D. FINAL REPORT The radiology attending physician has personally reviewed this study, and has reviewed and/or edited this written report and agrees with it. ACC# Date Time Exam [id number] Nov 27, 2015 14:50:00 [id number] Abdmn wi Decub &/or Erect EXAMINATION: Abdomen, single view AP. HISTORY: 60-year-old female with post prandial epigastric pain, concern for partial small bowel junction. IMPRESSION: Portable upright and supine AP views of the abdomen submitted. There are multiple surgical suture anchors in the pelvis from hernia repair surgery. There are surgical clips in the right upper quadrant from cholecystectomy. Visualized bowel gas pattern is normal. The stomach is mostly filled with fluid consistent with post prandial status. Small bowel and colon are nondilated. No peritoneal free air. Requested By: ALLEN DE M.D. Dictated By: DAYDAY DARLING M.D. on Nov 27 2015 3:45P This document has been electronically signed by: FRANCESCA JONES M.D. on Nov 27 2015 3:46P [id number] us Historical Provider IMG XR PROCEDURES Final R esult * Blood glucose, POC (11/27/2015 11:57 AM CDT) Glucose, POC, bld 127 70 - 199 mg/dl CDR HISTORICAL RESULTS Blood specimen (specimen) 11/27/2015 11:57 AM CDT us Evie Woo MD LAB BLOOD ORDERABLES Final R esult CDR HISTORICAL RESULTS * Blood glucose, POC (11/27/2015 9:35 AM CDT) Glucose, POC, bld 118 70 - 199 mg/dl CDR HISTORICAL RESULTS Blood specimen (specimen) 11/27/2015 9:35 AM CDT Evie Woo MD LAB BLOOD ORDERABLES Final R esult CDR HISTORICAL RESULTS * US Transvaginal (11/27/2015 9:10 AM CDT) Anatomical Region Laterality Modality Pelvis N/A Ultrasound 11/27/2015 9:10 AM CDT Narrative 11/27/2015 1:20 PM CDT ANTONIO CAMARA M.D. RUFINO SMILEY M.D. FINAL REPORT The radiology attending physician has personally reviewed this study, and has reviewed and/or edited this written report and agrees with it. ACC# ??Date Time ??Exam [id number] Nov 27, 2015 09:10:00 [id number] Transvag Sono ACC# ??Date Time ??Exam [id number] Nov 27, 2015 09:10:00 [id number] Transvag Sono EXAMINATION: ?? TRANSVAGINAL SONOGRAM HISTORY: ??60-year-old woman with history of breast cancer on tamoxifen who presents with abdominal pain. FINDINGS: Comparison is made to a CT of the abdomen pelvis from 11/24/2015. The endometrium measures 4 mm in thickness. ??No fibroids or other focal lesions are seen. The right ovary is surgically absent. Left ovary measures 2.9 x 1.7 cm. No fluid is seen in the endometrial cavity. No abnormal masses or fluid collections are visualized in either adnexal region. Doppler images demonstrate normal arterial and venous flow in the left ovary. A small nabothian cyst is seen in the cervix. ?? IMPRESSION: 1. Normal appearance of the endometrium without free fluid identified. 2. Small nabothian cyst. ?? Requested By: ALLEN DE M.D. Dictated By: ?? RUFINO SMILEY M.D. ??on Nov 10:24A This document has been electronically signed by: ANTONIO CAMARA M.D. on Nov 27 2015 ??1:20P [id number] Procedure Note Provider, MD Tyler - 08/12/2016 ANTONIO CAMARA M.D. RUFINO SMILEY M.D. FINAL REPORT The radiology attending physician has personally reviewed this study, and has reviewed and/or edited this written report and agrees with it. ACC# Date Time Exam [id number] Nov 27, 2015 09:10:00 [id number] Transvag Sono ACC# Date Time Exam [id number] Nov 27, 2015 09:10:00 [id number] Transvag Sono EXAMINATION: TRANSVAGINAL SONOGRAM HISTORY: 60-year-old woman with history of breast cancer on tamoxifen who presents with abdominal pain. FINDINGS: Comparison is made to a CT of the abdomen pelvis from 11/24/2015. The endometrium measures 4 mm in thickness. No fibroids or other focal lesions are seen. The right ovary is surgically absent. Left ovary measures 2.9 x 1.7 cm. No fluid is seen in the endometrial cavity. No abnormal masses or fluid collections are visualized in either adnexal region. Doppler images demonstrate normal arterial and venous flow in the left ovary. A small nabothian cyst is seen in the cervix. IMPRESSION: 1. Normal appearance of the endometrium without free fluid identified. 2. Small nabothian cyst. Requested By: ALLEN DE M.D. Dictated By: RUFINO SMILEY M.D. on Nov 27 2015 10:24A This document has been electronically signed by: ANTONIO CAMARA M.D. on Nov 27 2015 1:20P [id number] us Historical Provider [facility] [place] PROCEDURES Final R esult * Blood glucose, POC (11/26/2015 9:08 PM CDT) Glucose, POC, bld 134 70 - 199 mg/dl LAB MEG 88 Blood specimen (specimen) 11/26/2015 9:08 PM CDT us Evie Woo MD LAB BLOOD ORDERABLES Final R esult LAB MEG 88 * (ABNORMAL) Blood cell count (CBC) (11/26/2015 9:08 PM CDT) WBC 7.2 3.8 - 9.9 K/cumm LAB MEG 88 RBC 4.45 3.90 - 5.20 M/cumm LAB MEG 88 Hgb 12.6 11.9 - 15.5 g/dl LAB MEG 88 Hct 40.7 35.6 - 45.5 % LAB MEG 88 MCV 91.5 81.3 - 96.4 fl LAB MEG 88 MCH 28.3 27.1 - 33.3 pg LAB MEG 88 MCHC 31.0(L) 32.3 - 35.7 g/dl LAB MEG 88 Rdw 13.7 11.1 - 14.9 % LAB MEG 88 RDW 46.4 35.7 - 48.1 fl LAB MEG 88 Platelets 243 150 - 400 K/cumm LAB MEG 88 MPV 10.0 9.1 - 12.3 fl LAB MEG 88 NRBC 0.0 0.0 - 0.2 % LAB MEG 88 NRBC, abs 0.00 0.00 - 0.01 K/cumm LAB MEG 88 Blood specimen (specimen) 11/26/2015 9:08 PM CDT us Raymond Simon II, MD LAB BLOOD ORDERABLES Final Res ult LAB MEG 88 * Blood cell morphologic exam (11/26/2015 9:08 PM CDT) Neutrophils 52.2 % LAB MEG 88 Immature granulocytes 0.6 % LAB MEG 88 Lymphocytes 33.1 % LAB MEG 88 Monos 8.7 % LAB MEG 88 Eosinophils 5.0 % LAB MEG 88 Basophils 0.4 % LAB MEG 88 Neutrophils, abs 3.8 1.7 - 6.5 K/cumm LAB MEG 88 Immature granulocyte, abs 0.0 0.0 - 0.1 K/cumm LAB MEG 88 Lymphocytes, abs 2.4 0.8 - 3.3 K/cumm LAB MEG 88 Monocytes, absolute 0.6 0.2 - 0.8 K/cumm LAB MEG 88 Eosinophils, abs 0.4 0.0 - 0.5 K/cumm LAB MEG 88 Basophils, abs 0.0 0.0 - 0.1 K/cumm LAB MEG 88 Blood specimen (specimen) 11/26/2015 9:08 PM CDT Raymond Simon II, MD LAB BLOOD ORDERABLES Final Res ult Performing Organization Address [facility]/ZIP Co de Phone Number LAB MEG 88 * Serum thyroid-stimulating hormone (TSH) (11/26/2015 9:08 PM CDT) TSH 1.26 0.30 - 4.20 mcIUnits/m l LAB MEG 88 Comment: Interpretive Data Hyperthyroid: ??<0.1 mcIUnit/mL Hypothyroid: ??>12.0 mcIUnit/mL Current interpretive data was last revised on 00. Serum 11/26/2015 9:08 PM CDT us Allen De MD LAB BLOOD ORDERABLES Final Re sult Performing Organization Address [facility] Co de Phone Number LAB MEG 88 * Serum iron profile (11/26/2015 9:08 PM CDT) Iron 115 35 - 145 mcg/dl LAB MEG 88 UIBC 220 112 - 347 mcg/dl LAB MEG 88 TIBC 335 250 - 400 mcg/dl LAB MEG 88 Transferrin saturation 34 20 - 50 % LAB MEG 88 Serum 11/26/2015 9:08 PM CDT Allen De MD LAB BLOOD ORDERABLES Final Re sult Performing Organization Address [facility] Co de Phone Number LAB MEG 88 * Serum ferritin (11/26/2015 9:08 PM CDT) Ferritin 121 15 - 150 ng/ml LAB MEG 88 Serum 11/26/2015 9:08 PM CDT us Allen De MD LAB BLOOD ORDERABLES Final Re sult Performing Organization Address [facility] Co de Phone Number LAB MEG 88 * Serum tissue transglutaminase (TTG) ab (11/26/2015 9:08 PM CDT) TTG ab, IgA 5.40 0.00 - 19.99 units CDR HISTORICAL RESULTS Comment: Interpretive data Negative: <20.0 Units Weak Positive: 20.0-30.0 Units Moderate to Strong Positive: >30.0 Units Current interpretive data was last revised on 2009. Serum 11/26/2015 9:08 PM CDT us Allen De MD LAB BLOOD ORDERABLES Final Re sult Performing Organization Address [facility] de Phone Number CDR HISTORICAL RESULTS * Serum antigliadin ab (11/26/2015 9:08 PM CDT) Anti-gliadin, IgA 8.8 0.0 - 19.0 Arbitrary Units CDR HISTORICAL RESULTS Anti-gliadin, IgG 3.0 0.0 - 19.0 Arbitrary Units CDR HISTORICAL RESULTS Comment: Interpretive Data Deaminated Gliadin IgG or IgA: <20 units = Negative for Deaminated Gliadin antibodies 20-30 units = Weak Positive for Deaminated Gliadin antibodies >30 units = Moderate to Strong Positive for Deaminated Gliadin antibodies Current interpretive data was last revised on 14. Serum 11/26/2015 9:08 PM CDT us Allen De MD LAB BLOOD ORDERABLES Final Re sult Performing Organization Address [facility] Co de Phone Number CDR HISTORICAL RESULTS * Serum tissue transglutimase [TTG] ab IGG (11/26/2015 9:08 PM CDT) TTG ab, IgG 2.80 0.00 - 19.99 units CDR HISTORICAL RESULTS Comment: Interpretive Data Negative: <20.0 Units Weak Positive: 20.0-30.0 Units Moderate to Strong Positive: >30.0 Units Current interpretive data was last revised on 2009. Serum 11/26/2015 9:08 PM CDT Allen De MD LAB BLOOD ORDERABLES Final Re sult Performing Organization Address [facility] Phone Number CDR HISTORICAL RESULTS * Blood glucose, POC (11/26/2015 5:19 PM CDT) Glucose, POC, bld 82 70 - 199 mg/dl LAB MEG 88 Gluc, com 1, bld RN Notified LAB MEG 88 Blood specimen (specimen) 11/26/2015 5:19 PM CDT Evie Woo MD LAB BLOOD ORDERABLES Final R esult Performing Organization Address [facility] Phone Number LAB MEG 88 * Blood glucose, POC (11/26/2015 11:49 AM CDT) Glucose, POC, bld 87 70 - 199 mg/dl LAB MEG 88 Gluc, com 1, bld RN Notified LAB MEG 88 Blood specimen (specimen) 11/26/2015 11:49 AM CDT Evie Woo MD LAB BLOOD ORDERABLES Final R esult Performing Organization Address [facility] Phone Number LAB MEG 88 * Blood glucose, POC (11/26/2015 8:07 AM CDT) Glucose, POC, bld 114 70 - 199 mg/dl LAB MEG 88 Gluc, com 1, bld RN Notified LAB MEG 88 Blood specimen (specimen) 11/26/2015 8:07 AM CDT Evie Woo MD LAB BLOOD ORDERABLES Final R esult Performing Organization Address [facility] Phone Number LAB MEG 88 * Plasma basic metabolic panel (11/25/2015 9:23 PM CDT) Sodium 137 135 - 145 mmol/L LAB MEG 88 K, pl 4.4 3.3 - 4.9 mmol/L LAB MEG 88 Chloride 103 97 - 110 mmol/L LAB MEG 88 CO2 24 22 - 32 mmol/L LAB MEG 88 A. gap 10 2 - 15 mmol/L LAB MEG 88 Glucose 111 70 - 199 mg/dl LAB MEG 88 BUN 17 8 - 25 mg/dl LAB MEG 88 Creatinine 0.88 0.60 - 1.10 mg/dl LAB MEG 88 Calcium 9.0 8.5 - 10.3 mg/dl LAB MEG 88 Plasma 11/25/2015 9:23 PM CDT Raymond Simon II, MD LAB BLOOD ORDERABLES Final Res ult LAB MEG 88 * (ABNORMAL) Blood cell count (CBC) (11/25/2015 9:23 PM CDT) WBC 6.9 3.8 - 9.9 K/cumm LAB MEG 88 RBC 4.03 3.90 - 5.20 M/cumm LAB MEG 88 Hgb 11.5(L) 11.9 - 15.5 g/dl LAB MEG 88 Hct 36.5 35.6 - 45.5 % LAB MEG 88 MCV 90.6 81.3 - 96.4 fl LAB MEG 88 MCH 28.5 27.1 - 33.3 pg LAB MEG 88 MCHC 31.5(L) 32.3 - 35.7 g/dl LAB MEG 88 Rdw 13.8 11.1 - 14.9 % LAB MEG 88 RDW 46.3 35.7 - 48.1 fl LAB MEG 88 Platelets 265 150 - 400 K/cumm LAB MEG 88 MPV 9.8 9.1 - 12.3 fl LAB MEG 88 NRBC 0.0 0.0 - 0.2 % LAB MEG 88 NRBC, abs 0.00 0.00 - 0.01 K/cumm LAB MEG 88 Blood specimen (specimen) 11/25/2015 9:23 PM CDT Raymond Simon II, MD LAB BLOOD ORDERABLES Final Res ult LAB MEG 88 * Blood cell morphologic exam (11/25/2015 9:23 PM CDT) Neutrophils 52.8 % LAB MEG 88 Immature granulocytes 0.4 % LAB MEG 88 Lymphocytes 31.0 % LAB MEG 88 Monos 10.3 % LAB MEG 88 Eosinophils 5.1 % LAB MEG 88 Basophils 0.4 % LAB MEG 88 Neutrophils, abs 3.6 1.7 - 6.5 K/cumm LAB MEG 88 Immature granulocyte, abs 0.0 0.0 - 0.1 K/cumm LAB MEG 88 Lymphocytes, abs 2.1 0.8 - 3.3 K/cumm LAB MEG 88 Monocytes, absolute 0.7 0.2 - 0.8 K/cumm LAB MEG 88 Eosinophils, abs 0.4 0.0 - 0.5 K/cumm LAB MEG 88 Basophils, abs 0.0 0.0 - 0.1 K/cumm LAB MEG 88 Blood specimen (specimen) 11/25/2015 9:23 PM CDT Raymond Simon II, MD LAB BLOOD ORDERABLES Final Res ult Performing Organization Address [facility]/ZIP Co de Phone Number LAB MEG 88 * Blood glucose, POC (11/25/2015 9:22 PM CDT) Glucose, POC, bld 102 70 - 199 mg/dl LAB MEG 88 Blood specimen (specimen) 11/25/2015 9:22 PM CDT Evie Woo MD LAB BLOOD ORDERABLES Final R esult Performing Organization Address [place]/[facility]/ZIP Co de Phone Number LAB MEG 88 * Plasma lactic acid (11/25/2015 5:41 PM CDT) Lactic acid 1.6 0.7 - 2.2 mmol/L LAB MEG 88 Plasma 11/25/2015 5:41 PM CDT Allen De MD LAB BLOOD ORDERABLES Final Re sult Performing Organization Address [place]/[facility]/ZIP Co de Phone Number LAB MEG 88 * Blood glucose, POC (11/25/2015 5:30 PM CDT) Glucose, POC, bld 109 70 - 199 mg/dl LAB MEG 88 Blood specimen (specimen) 11/25/2015 5:30 PM CDT Evie Woo MD LAB BLOOD ORDERABLES Final R esult Performing Organization Address [facility] Phone Number LAB MEG 88 * Blood glucose, POC (11/25/2015 11:53 AM CDT) Glucose, POC, bld 107 70 - 199 mg/dl LAB MEG 88 Blood specimen (specimen) 11/25/2015 11:53 AM CDT Evie Woo MD LAB BLOOD ORDERABLES Final R esult Performing Organization Address [facility] Phone Number LAB MEG 88 * Blood glucose, POC (11/25/2015 7:55 AM CDT) Glucose, POC, bld 118 70 - 199 mg/dl LAB MEG 88 Blood specimen (specimen) 11/25/2015 7:55 AM CDT Evie Woo MD LAB BLOOD ORDERABLES Final R esult Performing Organization Address [facility] Phone Number LAB MEG 88 * Blood glucose, POC (11/25/2015 1:04 AM CDT) Glucose, POC, bld 127 70 - 199 mg/dl LAB MEG 88 Blood specimen (specimen) 11/25/2015 1:04 AM CDT Jimmie Covington MD LAB BLOOD ORDERABLES Deann l Result Performing Organization Address [facility] Co de Phone Number LAB MEG 88 * (ABNORMAL) Urinalysis (11/24/2015 7:00 PM CDT) Color, ur Yellow Yellow LAB MEG 88 Clarity, ur Clear Clear LAB MEG 88 Specific gravity, ur 1.042(H) 1.003 - 1.030 LAB MEG 88 pH, ur 5.0 5.0 - 8.0 LAB MEG 88 Protein, ur Negative Trace LAB MEG 88 Glucose, ur Negative Negative LAB MEG 88 Ketones, ur Negative Negative LAB MEG 88 Bilirubin, ur Negative Negative LAB MEG 88 U Blood 3+(A) Negative LAB MEG 88 Urobilinogen, quant, ur <2.0 <2.0 mg/dl LAB MEG 88 Nitrites, ur Negative Negative LAB MEG 88 Leukocyte esterase, ur Negative Negative LAB MEG 88 Urine 11/24/2015 7:00 PM CDT Demarcus Joy MD LAB BLOOD ORDERABLES Final Res ult Performing Organization Address [facility]/ZIP Co de Phone Number LAB MEG 88 * (ABNORMAL) Urine microscopy (11/24/2015 7:00 PM CDT) RBC, ur 11(H) 0 - 3 /hpf LAB MEG 88 WBC, ur 3 0 - 5 /hpf LAB MEG 88 Bacteria, ur Negative Trace LAB MEG 88 Epithelial cells, renal, ur 0 0 - 0 /hpf LAB MEG 88 Epithelial cells, squamous, ur 12 /lpf LAB MEG 88 Mucus, ur Small /hpf LAB MEG 88 Urine 11/24/2015 7:00 PM CDT Demarcus Joy MD LAB BLOOD ORDERABLES Final Res ult Performing Organization Address [facility]/ZIP Co de Phone Number LAB MEG 88 * CT Abdomen Pelvis W Contrast (11/24/2015 6:26 PM CDT) Anatomical Region Laterality Modality Body N/A Computed Tomogra phy 11/24/2015 6:26 PM CDT Narrative 11/26/2015 12:24 PM CDT MARLENY SOW M.D. KRZYSZTOF MEDEROS M.D. FINAL REPORT The radiology attending physician has personally reviewed this study, and has reviewed and/or edited this written report and agrees with it. ACC# ??Date Time ??Exam [id number] Nov 24, 2015 18:26:[id number] Abd & Pelvis with cont EXAMINATION: ?? CT OF THE ABDOMEN AND PELVIS WITH INTRAVENOUS CONTRAST HISTORY: 60-year-old with breast cancer status post mastectomy in September 2014, prior pulmonary embolisms presents with one week of epigastric abdominal pain. Patient had lithotripsy on the left. TECHNIQUE: Transaxial computed tomographic images of the abdomen and pelvis were obtained with intravenous contrast according to standard protocol. 94 mL Optiray-350 contrast was administered without immediate complication. FINDINGS: Comparison was made to study dated 04/04/2015 (chest). Study is limited by patient body habitus and respiratory motion. Limited view of the lung bases demonstrate mild left pleuroparenchymal scarring. There is no focal consolidation, pleural effusion or basilar pneumothorax. Heart size is normal without pericardial effusion. There is prominent pericardial fat. The liver parenchyma is normal without evidence of a mass. Mild intrahepatic biliary ductal dilatation is normal in a post cholecystectomy patient. There is no extrahepatic biliary ductal dilatation. The gallbladder is surgically absent. Postsurgical changes of anterior bowel wall hernia mesh repair with residual laxity of the anterior abdominal musculature. Multiple loops of decompressed small bowel abuts the anterior abdominal mesh. There is no fat stranding or focal fluid collection to suggest abscess. Additional post surgical changes include focal fat stranding anterior and slightly inferior to the abdominal mesh below the umbilicus (estimated 650.5) with punctate calcifications. This could represent a focal area of fat necrosis. The pancreas, spleen, kidneys, ureters and urinary bladder are normal. Mild thickening of the left adrenal gland which keeps its adreniform shape. The right adrenal gland is normal appearance. There are 2 proximal left ureteral stones measuring 2 and 3 mm (SP -536.5) with mild proximal dilatation of the ureter. There has an additional left inferior renal pole 4 mm nonobstructing renal stone. There is a 3 mm nonobstructing right upper pole renal stone. Multiple phleboliths are noted in the region of the distal ureters. There is nonspecific fluid within the endometrial cavity in this postmenopausal patient. There is no adnexal mass. The bladder is normal in appearance. The bowel is normal in course and caliber without wall thickening or obstruction. There is diverticulosis without evidence of diverticulitis. The appendix is visualized in its entirety and is normal. There is no free intraperitoneal air. There is no free abdominal or pelvic fluid. There is no retroperitoneal, mesenteric, omental, periaortic or inguinal lymphadenopathy. The abdominal aorta is normal in course and caliber. On bone windows, there is no osseous lytic or blastic lesion. There is osteitis pubis. There is sclerosis of the sacroiliac joint, predominately along the iliac wing side, most consistent with osteitis condensans illi. There is multilevel degenerative disc disease. IMPRESSION: ?? 1. Two tiny proximal left ureteral stones with mild dilatation of the proximal ureter, no obstruction. Per history patient had lithotripsy of a 10 mm stone on the left side. Patient's abdominal pain could be secondary to passing urinary stone fragments. 2. Laxity of the anterior bowel wall mesh with focal fat necrosis just deep to the umbilicus which could also explain patient's pain. 3. Nonspecific fluid within the endometrial canal in this post-menopausal patient. This can be further evaluated with a nonurgent pelvic sonogram. Dr. Mederos communicated these findings to Dr. Harvey on 11/24/2015 at 7:31 p.m. Requested By: ALTA HARVEY M.D. Dictated By: ?? KRZYSZTOF MEDEROS M.D. ??on Nov?2015 ??8:01A This document has been electronically signed by: MARLENY SOW M.D. on Nov ??2015 12:22P [id number] Procedure Note Provider, MD Tyler - 08/12/2016 MARLENY SOW M.D. KRZYSZTOF MEDEROS M.D. FINAL REPORT The radiology attending physician has personally reviewed this study, and has reviewed and/or edited this written report and agrees with it. ACC# Date Time Exam [id number] Nov 24, 2015 18:26:[id number] Abd & Pelvis with cont EXAMINATION: CT OF THE ABDOMEN AND PELVIS WITH INTRAVENOUS CONTRAST HISTORY: 60-year-old with breast cancer status post mastectomy in September 2014, prior pulmonary embolisms presents with one week of epigastric abdominal pain. Patient had lithotripsy on the left. TECHNIQUE: Transaxial computed tomographic images of the abdomen and pelvis were obtained with intravenous contrast according to standard protocol. 94 mL Optiray-350 contrast was administered without immediate complication. FINDINGS: Comparison was made to study dated 04/04/2015 (chest). Study is limited by patient body habitus and respiratory motion. Limited view of the lung bases demonstrate mild left pleuroparenchymal scarring. There is no focal consolidation, pleural effusion or basilar pneumothorax. Heart size is normal without pericardial effusion. There is prominent pericardial fat. The liver parenchyma is normal without evidence of a mass. Mild intrahepatic biliary ductal dilatation is normal in a post cholecystectomy patient. There is no extrahepatic biliary ductal dilatation. The gallbladder is surgically absent. Postsurgical changes of anterior bowel wall hernia mesh repair with residual laxity of the anterior abdominal musculature. Multiple loops of decompressed small bowel abuts the anterior abdominal mesh. There is no fat stranding or focal fluid collection to suggest abscess. Additional post surgical changes include focal fat stranding anterior and slightly inferior to the abdominal mesh below the umbilicus (estimated 650.5) with punctate calcifications. This could represent a focal area of fat necrosis. The pancreas, spleen, kidneys, ureters and urinary bladder are normal. Mild thickening of the left adrenal gland which keeps its adreniform shape. The right adrenal gland is normal appearance. There are 2 proximal left ureteral stones measuring 2 and 3 mm (SP -536.5) with mild proximal dilatation of the ureter. There has an additional left inferior renal pole 4 mm nonobstructing renal stone. There is a 3 mm nonobstructing right upper pole renal stone. Multiple phleboliths are noted in the region of the distal ureters. There is nonspecific fluid within the endometrial cavity in this postmenopausal patient. There is no adnexal mass. The bladder is normal in appearance. The bowel is normal in course and caliber without wall thickening or obstruction. There is diverticulosis without evidence of diverticulitis. The appendix is visualized in its entirety and is normal. There is no free intraperitoneal air. There is no free abdominal or pelvic fluid. There is no retroperitoneal, mesenteric, omental, periaortic or inguinal lymphadenopathy. The abdominal aorta is normal in course and caliber. On bone windows, there is no osseous lytic or blastic lesion. There is osteitis pubis. There is sclerosis of the sacroiliac joint, predominately along the iliac wing side, most consistent with osteitis condensans illi. There is multilevel degenerative disc disease. IMPRESSION: 1. Two tiny proximal left ureteral stones with mild dilatation of the proximal ureter, no obstruction. Per history patient had lithotripsy of a 10 mm stone on the left side. Patient's abdominal pain could be secondary to passing urinary stone fragments. 2. Laxity of the anterior bowel wall mesh with focal fat necrosis just deep to the umbilicus which could also explain patient's pain. 3. Nonspecific fluid within the endometrial canal in this post-menopausal patient. This can be further evaluated with a nonurgent pelvic sonogram. Dr. Mederos communicated these findings to Dr. Harvey on 11/24/2015 at 7:31 p.m. Requested By: ALTA HARVEY M.D. Dictated By: KZRYSZTOF MEDREOS M.D. on Nov 25 2015 8:01A This document has been electronically signed by: MARLENY SOW M.D. on Nov 26 2015 12:22P [id number] us Historical Provider IMMichael CT PROCEDURES Final R esult * Plasma hepatic function panel (11/24/2015 12:28 PM CDT) Protein, pl 8.1 6.5 - 8.5 g/dl LAB MGE 88 Alb 3.9 3.5 - 5.0 g/dl LAB MEG 88 Bilirubin 0.5 0.1 - 1.2 mg/dl LAB MEG 88 Bilirubin, direct <0.2 0.1 - 0.3 mg/dl LAB MEG 88 Alk phos 95 40 - 130 Units/L LAB MEG 88 AST 17 10 - 45 Units/L LAB MEG 88 ALT 21 7 - 45 Units/L LAB MEG 88 Plasma 11/24/2015 12:2 8 PM CDT us Demarcus Joy MD LAB BLOOD ORDERABLES Final Res ult LAB MEG 88 * Serum lipid panel (11/24/2015 12:28 PM CDT) Cholesterol 174 30 - 200 mg/dl LAB MEG 88 Comment: Interpretive Data Desirable: ?<200 mg/dL Borderline high: ??200-239 mg/dL High: ? > or = 240 mg/dL Literature Reference: National Cholesterol Education Program (NCEP) Expert Panel on Detection, Evaluation, and Treatment of High Blood Cholesterol in Adults (Adult Treatment Panel III). ??Circulation 2004; 110:227. Current interpretive data was last revised on 2015. Triglycerides 130 0 - 150 mg/dl LAB MEG 88 Comment: Interpretive Data Desirable: ? < 150 mg/dL Borderline High: ? 150 - 199 mg/dL High: ?200 - 499 mg/dL Very High: ? > or = 499 mg/dL Literature Reference: See Cholesterol Current interpretive data was last revised on 2015. HDL 57 >=40 mg/dl LAB MEG 88 Comment: Interpretive Data Less than 40 mg/dL - low; A major risk factor for heart disease. Greater than or equal to 60 mg/dL - High; ??considered protective of heart disease. Literature Reference: See Cholesterol Current interpretive data was last revised on 2015. LDL 91 10 - 129 mg/dl LAB MEG 88 Comment: Interpretive Data Optimal: ? < 100 mg/dL Near Optimal: ?100 - 129 mg/dL Borderline High: ?? 130 - 159 mg/dL High: ?160 - 189 mg/dL Very high: ? > or = 190 mg/dL Literature Reference: See Cholesterol Current interpretive data was last revised on 2015. Non-HDL cholesterol, calculated 117 mg/dl LAB MEG 88 Comment: Interpretive Data When triglycerides are >200 mg/dL, non-HDL C is a secondary target of therapy, with a goal 30 mg/dL higher than the identified LDL-C goal. Reference: ??See Cholesterol Reference. Current interpretive data was last revised 2015. Serum 11/24/2015 12:2 8 PM CDT us Demarcus Joy MD LAB BLOOD ORDERABLES Final Res ult Performing Organization Address [facility] de Phone Number LAB EMG 88 * Plasma basic metabolic panel (11/24/2015 12:28 PM CDT) Sodium 137 135 - 145 mmol/L LAB MEG 88 K, pl 4.6 3.3 - 4.9 mmol/L LAB MEG 88 Chloride 100 97 - 110 mmol/L LAB MEG 88 CO2 26 22 - 32 mmol/L LAB MEG 88 A. gap 10 2 - 15 mmol/L LAB MEG 88 Glucose 128 70 - 199 mg/dl LAB MEG 88 BUN 15 8 - 25 mg/dl LAB MEG 88 Creatinine 0.65 0.60 - 1.10 mg/dl LAB MEG 88 Calcium 10.0 8.5 - 10.3 mg/dl LAB MEG 88 Plasma 11/24/2015 12:2 8 PM CDT Demarcus Joy MD LAB BLOOD ORDERABLES Final Res ult Performing Organization Address [facility] de Phone Number LAB MEG 88 * Serum lipase (11/24/2015 12:28 PM CDT) Lip 49 10 - 99 Units/L LAB EMG 88 Serum 11/24/2015 12:2 8 PM CDT Demarcus Joy MD LAB BLOOD ORDERABLES Final Res ult Performing Organization Address [facility] de Phone Number LAB MEG 88 * (ABNORMAL) Blood cell count (CBC) (11/24/2015 12:28 PM CDT) WBC 9.6 3.8 - 9.9 K/cumm LAB MEG 88 RBC 4.47 3.90 - 5.20 M/cumm LAB MEG 88 Hgb 12.8 11.9 - 15.5 g/dl LAB MEG 88 Hct 39.8 35.6 - 45.5 % LAB MEG 88 MCV 89.0 81.3 - 96.4 fl LAB MEG 88 MCH 28.6 27.1 - 33.3 pg LAB MEG 88 MCHC 32.2(L) 32.3 - 35.7 g/dl LAB MEG 88 Rdw 13.8 11.1 - 14.9 % LAB MEG 88 RDW 45.2 35.7 - 48.1 fl LAB MEG 88 Platelets 295 150 - 400 K/cumm LAB MEG 88 MPV 9.7 9.1 - 12.3 fl LAB MEG 88 NRBC 0.0 0.0 - 0.2 % LAB MEG 88 NRBC, abs 0.00 0.00 - 0.01 K/cumm LAB MEG 88 Blood specimen (specimen) 11/24/2015 12:28 PM CDT Demarcus Joy MD LAB BLOOD ORDERABLES Final Res ult Performing Organization Address [facility]/ZIP Co de Phone Number LAB MEG 88 * Blood ABO, Rh, indirect ab screen (11/24/2015 12:28 PM CDT) ABO, Rho(D) O Positive LAB MEG 88 Dilcia, indirect Negative LAB MEG 88 Blood specimen (specimen) 11/24/2015 12:28 PM CDT Demarcus Joy MD LAB BLOOD ORDERABLES Final Res ult Performing Organization Address City/[facility]/ZIP Co de Phone Number LAB MEG 88 * (ABNORMAL) Blood cell morphologic exam (11/24/2015 12:28 PM CDT) Neutrophils 61.0 % LAB MEG 88 Immature granulocytes 0.4 % LAB MEG 88 Lymphocytes 24.8 % LAB MEG 88 Monos 10.8 % LAB MEG 88 Eosinophils 2.7 % LAB MEG 88 Basophils 0.3 % LAB MEG 88 Neutrophils, abs 5.9 1.7 - 6.5 K/cumm LAB MEG 88 Immature granulocyte, abs 0.0 0.0 - 0.1 K/cumm LAB MEG 88 Lymphocytes, abs 2.4 0.8 - 3.3 K/cumm LAB MEG 88 Monocytes, absolute 1.0(H) 0.2 - 0.8 K/cumm LAB MEG 88 Eosinophils, abs 0.3 0.0 - 0.5 K/cumm LAB MEG 88 Basophils, abs 0.0 0.0 - 0.1 K/cumm LAB MEG 88 Blood specimen (specimen) 11/24/2015 12:28 PM CDT Demarcus Joy MD LAB BLOOD ORDERABLES Final Res ult Performing Organization Address [facility] de Phone Number LAB MEG 88 * (ABNORMAL) Blood hemoglobin A1C (11/24/2015 12:28 PM CDT) Hgb A1C 6.5(H) 4.0 - 6.0 % LAB MEG 88 Estimated average glucose 140 mg/dl LAB MEG 88 Comment: The ADA recommends reporting an estimated Average Glucose (eAG) with all Hemoglobin A1c results using the equation derived from a study of 507 normal and diabetic adults. ??Minority populations were underrepresented and children were not included. ??(Diabetes Care 31:6162-1775, 2007). ??The eAG is not equivalent to a fasting glucose. Blood specimen (specimen) 11/24/2015 12:28 PM CDT Demarcus Joy MD LAB BLOOD ORDERABLES Final Res ult Performing Organization Address [facility] de Phone Number LAB MEG 88 * Blood glucose, POC (11/24/2015 12:09 PM CDT) Glucose, POC, bld 139 70 - 199 mg/dl LAB MEG 88 Blood specimen (specimen) 11/24/2015 12:09 PM CDT Result [facility] Tyler Smith MD LAB BLOOD ORDERABLES Deann l Result Performing Organization Address [facility] Co de Phone Number LAB MEG 88 documented in this encounter Visit Diagnoses Diagnosis Disease of stomach and duodenum Type 2 diabetes mellitus with diabetic neuropathy (CMS/HCC) (HCC) Malignant neoplasm of female breast (HCC) Malignant neoplasm of breast (female), unspecified site Calculus of ureter Body mass index (BMI) of 50-59.9 in adult (HCC) Essential (primary) hypertension Unspecified essential hypertension Gastro-esophageal reflux disease without esophagitis Hypothyroidism Unspecified hypothyroidism Obstructive sleep apnea Obstructive sleep apnea (adult) (pediatric) Restless legs syndrome Restless legs syndrome (RLS) Cigarette nicotine dependence in remission Calculus of kidney Acquired absence of other specified parts of digestive tract Morbid (severe) obesity due to excess calories (HCC) 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
--- OUTSIDE RECORDS SUMMARY | 2024-04-26 04:32 | XMS_ITS | Encounter Summary ---
Author Organization [facility] Care Team Providers Care Conference Services Coordinator Name Role Phone Antoinette Zhu MD Primary Care Provider [phone] Encounter Details Date Type Department Care Team (Latest Contact Info) Description 01/26/2015 2:45 PM CDT - 01/26/2015 4:00 PM T Hospital Encounter [facility] [place], [place] [id number] [place] [id number] Nondisplaced fracture of fifth metatarsal bone, left foot, initial encounter for closed fracture Social History Tobacco Use Types Packs/Day Years Used Date Smoking Tobacco: Former Alcohol Use Standard Drinks/Week Comments No 0 (1 standard drink = 0.6 oz pur e alcohol) Comments Unknown Sex and Gender Information Value Date Recorded Sex Assigned at Not on file Legal Sex Female 12:24 AM DIRECTOR CLIENT Gender Identity Not on file Sexual Orientation [...] Name Priority Date/Time Associated Diagnosis Comments XR ANKLE 3+ VW Routine 01/26/2015 4:16 PM CDT XR FOOT 3+ VW Routine 01/26/2015 2:56 PM CDT documented in this encounter Results * XR Ankle 3+ Vw (01/26/2015 4:16 PM CDT) Anatomical Region Laterality Modality N/A Radiographic Lizeth ging 01/26/2015 4:16 PM CDT Narrative 01/26/2015 4:48 PM CDT JEFFERSON VINCENT M.D. FINAL REPORT ACC# ??Date Time ??Exam [id number] Jan 26, 2015 16:16:00 [id number] Ankle Complt. min 3 views L EXAMINATION: ? Left ankle minimum 3 views HISTORY: ??Left fifth metatarsal base fracture, acute FINDINGS: ??Three-view weight bearing examination left ankle is digitally-acquired and compared to a foot examination performed earlier today. There is a nondisplaced intra-articular fracture at the base of the first metatarsal. The ankle and hindfoot joint spaces are normal. The ankle mortise is intact. A heel spur is present. IMPRESSION: ?? Nondisplaced fracture at the base of the left fifth metatarsal. Requested By: OLIVIER BRYSON M.D. Dictated By: ?? JEFFERSON VINCENT M.D. ??on Jan?2014 ??4:48P This document has been electronically signed by: JEFFERSON VINCENT M.D. on Jan 26 2015 ??4:48P [id number] Procedure Note Provider, Historical, - 08/12/2016 JEFFERSON VINCENT M.D. FINAL REPORT ACC# Date Time Exam [id number] Jan 26, 2015 16:16:00 [id number] Ankle Complt. min 3 views L EXAMINATION: Left ankle minimum 3 views HISTORY: Left fifth metatarsal base fracture, acute FINDINGS: Three-view weight bearing examination left ankle is digitally-acquired and compared to a foot examination performed earlier today. There is a nondisplaced intra-articular fracture at the base of the first metatarsal. The ankle and hindfoot joint spaces are normal. The ankle mortise is intact. A heel spur is present. IMPRESSION: Nondisplaced fracture at the base of the left fifth metatarsal. Requested By: OLIVIER BRYSON M.D. Dictated By: JEFFERSON VINCENT M.D. on Jan 26 2015 4:48P This document has been electronically signed by: JEFFERSON VINCENT M.D. on Jan 26 2015 4:48P [id number] us Historical Provider IMG XR PROCEDURES Final R esult * XR Foot 3+ Vw (01/26/2015 2:56 PM CDT) Anatomical Region Laterality Modality N/A Radiographic Lizeth ging 01/26/2015 2:56 PM CDT Narrative 01/26/2015 3:00 PM CDT JEFFERSON VINCENT M.D. FINAL REPORT ACC# ??Date Time ??Exam [id number] Jan 26, 2015 14:56:00 [id number] Foot Complt. min 3 views L EXAMINATION: ? Left foot minimum 3 views HISTORY: ??Intra-articular oblique left fifth metatarsal base fracture, acute FINDINGS: ??Three-view examination of the left foot is performed weight bearing and digitally-acquired. There are no prior studies for comparison. There is a nondisplaced intra-articular fracture at the base of the fifth metatarsal. Soft tissue swelling is present in the forefoot. Joint spaces are normal. Alignment is normal. A heel spur is present. IMPRESSION: ?? Nondisplaced intra-articular fracture at the base of the left fifth metatarsal. Requested By: OLIVIER BRYSON M.D. Dictated By: ?? JEFFERSON VINCENT M.D. ??on Jan?2014 ??3:00P This document has been electronically signed by: JEFFERSON VINCENT M.D. on Jan 26 2015 ??3:00P [id number] Procedure Note Provider, MD Tyler - 08/12/2016 JEFFERSON VINCENT M.D. FINAL REPORT ACC# Date Time Exam [id number] Jan 26, 2015 14:56:00 [id number] Foot Complt. min 3 views L EXAMINATION: Left foot minimum 3 views HISTORY: Intra-articular oblique left fifth metatarsal base fracture, acute FINDINGS: Three-view examination of the left foot is performed weight bearing and digitally-acquired. There are no prior studies for comparison. There is a nondisplaced intra-articular fracture at the base of the fifth metatarsal. Soft tissue swelling is present in the forefoot. Joint spaces are normal. Alignment is normal. A heel spur is present. IMPRESSION: Nondisplaced intra-articular fracture at the base of the left fifth metatarsal. Requested By: OLIVIER BRYSON M.D. Dictated By: JEFFERSON VINCENT M.D. on Jan 26 2015 3:00P This document has been electronically signed by: JEFFERSON VINCENT M.D. on Jan 26 2015 3:00P [id number] Historical Provider MD GARCIA XR PROCEDURES Final R esult documented in this encounter Visit Diagnoses Diagnosis Nondisplaced fracture of fifth metatarsal bone, left foot, initial encounter for closed fracture documented in this encounter Care Teams Conference Services Coordinator Relationship Specialty Start Date End Date Antoinette Zhu MD [address] [place] [id number] PCP - General 08/01/13 07/26/16 documented as of this encounter
--- OUTSIDE RECORDS SUMMARY | 2024-04-26 04:32 | XMS_ITS | Encounter Summary ---
Author Organization [facility] Facility Care Team Providers Care Grocery Manager Name Role Phone Antoinette Zhu MD Primary Care Provider [phone] Encounter Details Date Type Department Care Team (Late st Contact Info) Description 10/17/2014 - 04/23/2015 11:59 PM RIVER RAFTING GUIDE Hospital [facility] [address] [facility] [address] [place] [address] Malignant neoplasm of breast (female) (CMS/HCC) Social History Tobacco Use Types Packs/Day Years Used Date Smoking Tobacco: Former Alcohol Use Standard Drinks/Week Comments No 0 (1 standard drink = 0.6 oz pur e alcohol) Comments Unknown Sex and Gender Information Value Date Recorded Sex Assigned at Not on file 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 Sex 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 Gender Identity Not on file Sexual Orientation [...] Associated Diagnosis Comments DISCHARGE LABORATORY CUMULATIVE REPORT 04/23/2015 PLASMA COMPREHENSIVE METABOLIC PANEL Routine 12/30/2014 2:22 PM CDT BLOOD CELL COUNT Routine 12/30/2014 2:18 PM CDT PLASMA COMPREHENSIVE METABOLIC PANEL Routine 11/11/2014 11:02 AM CDT BLOOD CELL COUNT Routine 11/11/2014 11:0 0 AM CDT BLOOD CELL COUNT Routine 10/20/2014 2:30 PM CDT PLASMA COMPREHENSIVE METABOLIC PANEL Routine 10/20/2014 2:25 PM CDT documented in this encounter Results * DISCHARGE LABORATORY CUMULATIVE REPORT (04/23/2015) Narrative 04/23/2015 Ordered by an unspecified provider. us Historical Provider LAB BLOOD ORDERABLES Deann l Result * Plasma comprehensive metabolic panel (12/30/2014 2:22 PM CDT) Sodium 139 135 - 145 mmol/L HISTORICAL RESULTS K, pl 4.2 3.3 - 4.9 mmol/L HISTORICAL RESULTS Chloride 104 97 - 110 mmol/L HISTORICAL RESULTS CO2 26 22 - 32 mmol/L HISTORICAL RESULTS A. gap 9 0 - 16 mmol/L HISTORICAL RESULTS Glucose 125 70 - 199 mg/dl HISTORICAL RESULTS BUN 15 8 - 25 mg/dl HISTORICAL RESULTS Creatinine 0.68 0.60 - 1.10 mg/dl HISTORICAL RESULTS Calcium 9.8 8.6 - 10.3 mg/dl HISTORICAL RESULTS Protein, pl 7.9 6.5 - 8.5 g/dl HISTORICAL RESULTS Alb 3.6 3.6 - 5.0 g/dl HISTORICAL RESULTS Bilirubin 0.3 0.3 - 1.1 mg/dl HISTORICAL RESULTS Alk phos 85 38 - 126 Units/L HISTORICAL RESULTS AST 19 11 - 47 Units/L HISTORICAL RESULTS ALT 22 7 - 53 Units/L HISTORICAL RESULTS Plasma 12/30/2014 2:22 PM CDT us Khris Arthur MD LAB BLOOD ORDERABLES Final Result HISTORICAL RESULTS * (ABNORMAL) Blood cell count [CBC] panel, 7 CAM (12/30/2014 2:18 PM CDT) WBC 9.4 3.8 - 9.8 K/cumm HISTORICAL RESULTS RBC 4.32 3.90 - 5.00 M/cumm HISTORICAL RESULTS Hgb 11.1(L) 12.1 - 15.1 g/dl HISTORICAL RESULTS Hct 36.2 36.1 - 44.3 % HISTORICAL RESULTS MCV 83.8 80.0 - 97.6 fl HISTORICAL RESULTS MCH 25.7(L) 26.7 - 33.7 pg HISTORICAL RESULTS MCHC 30.7(L) 32.7 - 35.5 g/dl HISTORICAL RESULTS Rdw 14.6 11.8 - 14.6 % HISTORICAL RESULTS Platelets 328 140 - 440 K/cumm HISTORICAL RESULTS MPV 7.7 6.8 - 10.4 fl HISTORICAL RESULTS Neutrophils 56.6 38.7 - 74.5 % HISTORICAL RESULTS Lymphocytes 29.1 20.0 - 54.3 % HISTORICAL RESULTS Monos 8.2 4.3 - 13.5 % HISTORICAL RESULTS Eosinophils 5.5 0.0 - 6.0 % HISTORICAL RESULTS Basophils 0.6 0.0 - 3.0 % HISTORICAL RESULTS Neutrophils, abs 5.3 1.8 - 6.6 K/cumm HISTORICAL RESULTS Lymphocytes, abs 2.7 1.2 - 3.3 K/cumm HISTORICAL RESULTS Monocytes, absolute 0.8 0.2 - 1.2 K/cumm HISTORICAL RESULTS Eosinophils, abs 0.5 0.0 - 0.5 K/cumm HISTORICAL RESULTS Basophils, abs 0.1 0.0 - 0.2 K/cumm HISTORICAL RESULTS Blood specimen (specimen) 12/30/2014 2:18 PM CDT Khris Arthur MD LAB BLOOD ORDERABLES Final Result Performing Organization Address City/[facility] Co de Phone Number HISTORICAL RESULTS * Plasma comprehensive metabolic panel (11/11/2014 11:02 AM CDT) Sodium 136 135 - 145 mmol/L HISTORICAL RESULTS K, pl 4.4 3.3 - 4.9 mmol/L HISTORICAL RESULTS Chloride 101 97 - 110 mmol/L HISTORICAL RESULTS CO2 27 22 - 32 mmol/L HISTORICAL RESULTS A. gap 8 0 - 16 mmol/L HISTORICAL RESULTS Glucose 161 70 - 199 mg/dl HISTORICAL RESULTS BUN 15 8 - 25 mg/dl HISTORICAL RESULTS Creatinine 0.62 0.60 - 1.10 mg/dl HISTORICAL RESULTS Calcium 10.1 8.6 - 10.3 mg/dl HISTORICAL RESULTS Protein, pl 8.4 6.5 - 8.5 g/dl HISTORICAL RESULTS Alb 3.8 3.6 - 5.0 g/dl HISTORICAL RESULTS Bilirubin 0.4 0.3 - 1.1 mg/dl HISTORICAL RESULTS Alk phos 89 38 - 126 Units/L HISTORICAL RESULTS AST 20 11 - 47 Units/L HISTORICAL RESULTS ALT 22 7 - 53 Units/L HISTORICAL RESULTS Plasma 11/11/2014 11:0 2 AM CDT Khris Arthur MD LAB BLOOD ORDERABLES Final Result Performing Organization Address City/[facility] Co de Phone Number HISTORICAL RESULTS * (ABNORMAL) Blood cell count [CBC] panel, 7 CAM (11/11/2014 11:00 AM CDT) WBC 9.2 3.8 - 9.8 K/cumm HISTORICAL RESULTS RBC 4.15 3.90 - 5.00 M/cumm HISTORICAL RESULTS Hgb 11.4(L) 12.1 - 15.1 g/dl HISTORICAL RESULTS Hct 36.4 36.1 - 44.3 % HISTORICAL RESULTS MCV 87.7 80.0 - 97.6 fl HISTORICAL RESULTS MCH 27.5 26.7 - 33.7 pg HISTORICAL RESULTS MCHC 31.4(L) 32.7 - 35.5 g/dl HISTORICAL RESULTS Rdw 14.4 11.8 - 14.6 % HISTORICAL RESULTS Platelets 389 140 - 440 K/cumm HISTORICAL RESULTS MPV 7.5 6.8 - 10.4 fl HISTORICAL RESULTS Neutrophils 51.2 38.7 - 74.5 % HISTORICAL RESULTS Lymphocytes 34.7 20.0 - 54.3 % HISTORICAL RESULTS Monos 7.5 4.3 - 13.5 % HISTORICAL RESULTS Eosinophils 6.0 0.0 - 6.0 % HISTORICAL RESULTS Basophils 0.6 0.0 - 3.0 % HISTORICAL RESULTS Neutrophils, abs 4.7 1.8 - 6.6 K/cumm HISTORICAL RESULTS Lymphocytes, abs 3.2 1.2 - 3.3 K/cumm HISTORICAL RESULTS Monocytes, absolute 0.7 0.2 - 1.2 K/cumm HISTORICAL RESULTS Eosinophils, abs 0.6(H) 0.0 - 0.5 K/cumm HISTORICAL RESULTS Basophils, abs 0.1 0.0 - 0.2 K/cumm HISTORICAL RESULTS Blood specimen (specimen) 11/11/2014 11:00 AM CDT us Khris Arthur MD LAB BLOOD ORDERABLES Final Result HISTORICAL RESULTS * (ABNORMAL) Blood cell count [CBC] panel, 7 CAM (10/20/2014 2:30 PM CDT) Pathologist [facility] WBC 10.2(H) 3.8 - 9.8 K/cumm HISTORICAL RESULTS RBC 4.01 3.90 - 5.00 M/cumm HISTORICAL RESULTS Hgb 11.4(L) 12.1 - 15.1 g/dl HISTORICAL RESULTS Hct 35.4(L) 36.1 - 44.3 % HISTORICAL RESULTS MCV 88.2 80.0 - 97.6 fl HISTORICAL RESULTS MCH 28.6 26.7 - 33.7 pg HISTORICAL RESULTS MCHC 32.4(L) 32.7 - 35.5 g/dl HISTORICAL RESULTS Rdw 14.4 11.8 - 14.6 % HISTORICAL RESULTS Platelets 345 140 - 440 K/cumm HISTORICAL RESULTS MPV 7.4 6.8 - 10.4 fl HISTORICAL RESULTS Neutrophils 52.8 38.7 - 74.5 % HISTORICAL RESULTS Lymphocytes 32.4 20.0 - 54.3 % HISTORICAL RESULTS Monos 7.5 4.3 - 13.5 % HISTORICAL RESULTS Eosinophils 6.9(H) 0.0 - 6.0 % HISTORICAL RESULTS Basophils 0.4 0.0 - 3.0 % HISTORICAL RESULTS Neutrophils, abs 5.4 1.8 - 6.6 K/cumm HISTORICAL RESULTS Lymphocytes, abs 3.3 1.2 - 3.3 K/cumm HISTORICAL RESULTS Monocytes, absolute 0.8 0.2 - 1.2 K/cumm HISTORICAL RESULTS Eosinophils, abs 0.7(H) 0.0 - 0.5 K/cumm HISTORICAL RESULTS Basophils, abs 0.0 0.0 - 0.2 K/cumm HISTORICAL RESULTS Blood specimen (specimen) 10/20/2014 2:30 PM CDT Khris Arthur MD LAB BLOOD ORDERABLES Final Result HISTORICAL RESULTS * Plasma comprehensive metabolic panel (10/20/2014 2:25 PM CDT) Sodium 138 135 - 145 mmol/L HISTORICAL RESULTS K, pl 4.6 3.3 - 4.9 mmol/L HISTORICAL RESULTS Chloride 103 97 - 110 mmol/L HISTORICAL RESULTS CO2 28 22 - 32 mmol/L HISTORICAL RESULTS A. gap 7 0 - 16 mmol/L HISTORICAL RESULTS Glucose 141 70 - 199 mg/dl HISTORICAL RESULTS BUN 20 8 - 25 mg/dl HISTORICAL RESULTS Creatinine 0.66 0.60 - 1.10 mg/dl HISTORICAL RESULTS Calcium 10.1 8.6 - 10.3 mg/dl HISTORICAL RESULTS Protein, pl 8.4 6.5 - 8.5 g/dl HISTORICAL RESULTS Alb 3.9 3.6 - 5.0 g/dl HISTORICAL RESULTS Bilirubin 0.4 0.3 - 1.1 mg/dl HISTORICAL RESULTS Alk phos 83 38 - 126 Units/L HISTORICAL RESULTS AST 18 11 - 47 Units/L HISTORICAL RESULTS ALT 25 7 - 53 Units/L HISTORICAL RESULTS Plasma 10/20/2014 2:25 PM CDT Khris Arthur MD LAB BLOOD ORDERABLES Final Result HISTORICAL RESULTS documented in this encounter Visit Diagnoses Diagnosis Malignant neoplasm of breast (female) (HCC) Malignant neoplasm of breast (female), unspecified site documented in this encounter Care Teams Grocery Manager Relationship Specialty Start Date End Date Antoinette Zhu MD [address] [address] PCP - General 08/01/13 07/26/16 documented as of this encounter
--- OUTSIDE RECORDS SUMMARY | 2024-04-26 04:32 | XMS_ITS | Encounter Summary ---
Author Organization [facility] Care Team Providers Care Weatherization Coordinator Name Role Phone Antoinette Zhu MD Primary Care Provider [phone] Encounter Details Date Type Department Care Team (Late st Contact Info) Description 02/19/2015 3:24 PM CDT - 02/19/2015 4:00 PM T Hospital Encounter [facility] [place] [place], [place] [address] [place] [id number] Displaced fracture of fifth metatarsal bone of left foot with routine healing; Exposure to other specified factors, subsequent encounter Social History Tobacco Use Types Packs/Day Years Used Date Smoking Tobacco: Former Alcohol Use Standard Drinks/Week Comments No 0 (1 standard drink = 0.6 oz pur e alcohol) Comments Unknown Sex and Gender Information Value Date Recorded Sex Assigned at Not on file 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 min 3 views L EXAMINATION: ?Left foot complete minimum 3 views HISTORY: ??Fifth metatarsal fracture FINDINGS: ??Three-view weight-bearing examination of the left foot is compared to radiographs from January 26, 2015. There is increased resorption of the nondisplaced, intra-articular fracture base of the fifth metatarsal . The articular surface is congruent. The remaining joint spaces are normal. Moderate size heel spur is present. IMPRESSION: ?? 1. Likely early healing of the nondisplaced, intra-articular fracture base of the left fifth metatarsal Requested By: OLIVIER BRYSON M.D. Dictated By: ?? PILY CALZADA MD, PHD ??on Feb 19 2015 ??3:44P This document has been electronically signed by: PILY CALZADA MD, PHD on Feb 19 2015 ??3:44P [id number] Procedure Note Provider, MD Tyler - 08/12/2016 PILY CALZADA MD, PHD FINAL REPORT ACC# Date Time Exam [id number] Feb 19, 2015 15:36:00 [id number] Foot Complt. min 3 views L EXAMINATION: Left foot complete minimum 3 views HISTORY: Fifth metatarsal fracture FINDINGS: Three-view weight-bearing examination of the left foot is compared to radiographs from January 26, 2015. There is increased resorption of the nondisplaced, intra-articular fracture base of the fifth metatarsal . The articular surface is congruent. The remaining joint spaces are normal. Moderate size heel spur is present. IMPRESSION: 1. Likely early healing of the nondisplaced, intra-articular fracture base of the left fifth metatarsal Requested By: OLIVIER BRYSON M.D. Dictated By: PILY CALZADA MD, PHD on Feb 19 2015 3:44P This document has been electronically signed by: PILY CALZADA MD, PHD on Feb 19 2015 3:44P [id number] Historical Provider IMG XR PROCEDURES Final R esult documented in this encounter Visit Diagnoses Diagnosis Displaced fracture of fifth metatarsal bone of left foot with routine healing Exposure to other specified factors, subsequent encounter documented in this encounter Care Teams Weatherization Coordinator Relationship Specialty Start Date End Date Antoinette Zhu MD [address] [address] PCP - General 08/01/13 07/26/16 documented as of this encounter
--- OUTSIDE RECORDS SUMMARY | 2024-04-26 04:32 | XMS_ITS | Encounter Summary ---
Author Organization [facility] Facility Care Team Providers Care Hydroelectric Powerplant Supervisor Name Role Phone Antoinette Zhu MD Primary Care Provider [phone] Encounter Details Date Type Department Care Team (Late st Contact Info) Description 06/11/2015 - 06/11/2015 11:59 PM MACHINE FANCY STITCHER Hospital [facility] [place] [address] [facility] [address] [place] [address] Social History Tobacco Use Types Packs/Day Years Used Date Smoking Tobacco: Former Alcohol Use Standard Drinks/Week Comments No 0 (1 standard drink = 0.6 oz pur e alcohol) Comments Unknown Sex and Gender Information Value Date Recorded Sex Assigned at Not on file Legal Sex Female 12:24 AM MACHINE FANCY STITCHER Gender Identity Not on file Sexual Orientation [...] on filedocumented in this encounter Care Teams Hydroelectric Powerplant Supervisor Relationship Specialty Start Date End Date Antoinette Zhu MD [address] [address] PCP - General 08/01/13 07/26/16 documented as of this encounter
--- OUTSIDE RECORDS SUMMARY | 2024-04-26 04:32 | XMS_ITS | Encounter Summary ---
Author Organization [facility] Facility Care Team Providers Care Sales Consultant Insurance Name Role Phone Antoinette Zhu MD Primary Care Provider [phone] Encounter Details Date Type Department Care Team (Late st Contact Info) Description 03/12/2015 2:54 PM ASSEMBLY REPAIRER - 03/12/2015 4:00 PM [facility] [place] [address] [place] [phone] Displaced fracture of fifth metatarsal bone of left foot with routine healing Social History Tobacco Use Types Packs/Day Years Used Date Smoking Tobacco: Former Alcohol Use Standard Drinks/Week Comments No 0 (1 standard drink = 0.6 oz pur e alcohol) Comments Unknown Sex and Gender Information Value Date Recorded Sex Assigned at Not on file Legal Sex Female 12:24 AM ASSEMBLY REPAIRER Gender Identity Not on file Sexual Orientation [...] Diagnosis Comments XR FOOT 3+ VW Routine 03/12/2015 3:13 PM ASSEMBLY REPAIRER documented in this encounter Results * XR Foot 3+ Vw (03/12/2015 3:13 PM ASSEMBLY REPAIRER) Anatomical Region Laterality Modality N/A Radiographic Lizeth ging 03/12/2015 3:13 PM ASSEMBLY REPAIRER Narrative 03/12/2015 3:33 PM ASSEMBLY REPAIRER JEFFERSON VINCENT M.D. FINAL REPORT ACC# ??Date Time ??Exam [id number] Mar 12, 2015 15:13:00 [id number] Foot Complt. min 3 views L EXAMINATION: ? Left foot minimum 3 views HISTORY: ??Comminuted left fifth metatarsal base fracture, followup FINDINGS: ??Three-view weight bearing examination of the left foot is digitally-acquired and compared to a study from 19 February 2015. A comminuted intra-articular fracture at the base of the fifth metatarsal is healing with progressive callus formation. Alignment and joint spaces are normal. A heel spur is present. IMPRESSION: ?? Healing comminuted fracture at the base of the left fifth metatarsal. Requested By: OLIVIER BRYSON M.D. Dictated By: ?? JEFFERSON VINCENT M.D. ??on Mar 12 2015 ??3:33P This document has been electronically signed by: JEFFERSON VINCENT M.D. on Mar 12 2015 ??3:33P [id number] Procedure Note Provider, MD Tyler - 08/12/2016 JEFFERSON VINCENT M.D. FINAL REPORT ACC# Date Time Exam [id number] Mar 12, 2015 15:13:00 [id number] Foot Complt. min 3 views L EXAMINATION: Left foot minimum 3 views HISTORY: Comminuted left fifth metatarsal base fracture, followup FINDINGS: Three-view weight bearing examination of the left foot is digitally-acquired and compared to a study from 19 February 2015. A comminuted intra-articular fracture at the base of the fifth metatarsal is healing with progressive callus formation. Alignment and joint spaces are normal. A heel spur is present. IMPRESSION: Healing comminuted fracture at the base of the left fifth metatarsal. Requested By: OLIVIER BRYSON M.D. Dictated By: JEFFERSON VINCENT M.D. on Mar 12 2015 3:33P This document has been electronically signed by: JEFFERSON VINCENT M.D. on Mar 12 2015 3:33P [id number] Historical Provider IMG XR PROCEDURES Final R esult documented in this encounter Visit Diagnoses Diagnosis Displaced fracture of fifth metatarsal bone of left foot with routine healing documented in this encounter Care Teams Sales Consultant Insurance Relationship Specialty Start Date End Date Antoinette Zhu MD [address] [place] [id number] PCP - General 08/01/13 07/26/16 documented as of this encounter
--- OUTSIDE RECORDS SUMMARY | 2024-04-26 04:33 | XMS_ITS | Encounter Summary ---
Author Organization [facility] Facility Care Team Providers Care Junior Loan Processor Name Role Phone Antoinette Zhu MD Primary Care Provider [phone] Encounter Details Date Type Department Care Team (Late st Contact Info) Description 12/05/2014 - 12/05/2014 11:59 PM CDT Hospital Encounter [facility] Félix Arthur MD [address] [facility] [address] [place] [address] Fitting and adjustment of vascular catheter; Malignant neoplasm of breast (female) (CMS/HCC) Social History Tobacco Use Types Packs/Day Years Used Date Smoking Tobacco: Former Alcohol Use Standard Drinks/Week Comments No 0 (1 standard drink = 0.6 oz pur e alcohol) Comments Unknown Sex and Gender Information Value Date Recorded Sex Assigned at Not on file 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 MARIELA BATES M.D. FINAL REPORT The radiology attending physician has personally reviewed this study, and has reviewed and/or edited this written report and agrees with it. ACC# ??Date Time ??Exam [id number] Dec 05, 2014 14:02:00 19402 Exchange PICC Line [id number] Dec 05, 2014 14:02:00 32005 Fluoro Devin Accs R EXAMINATION: ?NONTUNNELED CENTRAL VENOUS CATHETER EXCHANGE HISTORY: 59-year-old female with breast cancer presenting with dysfunction of her right upper extremity PICC. ATTENDING PRESENCE: Dr. Aiken, the attending radiologist, was present from the beginning to the end of the procedure. SEDATION: The patient did not require conscious sedation for the procedure. TECHNIQUE: The risks, benefits and alternatives were discussed and informed consent was obtained. ??Prior to beginning the procedure, [place] Protocol was used to confirm the patient's identity and planned procedure. ??Fluoroscopy time has been recorded in the electronic medical record. Maximum sterile barriers including cap, mask, hand hygiene, sterile gloves, sterile gown, large sterile drape and 2% chlorhexidine for cutaneous antisepsis were used. ?? SITE: ??The skin over the right basilic vein including the existing PICC was sterilely prepped, draped and infiltrated with 1% lidocaine. A wire was passed through the existing PICC line in position in the right atrium. Existing catheter was then removed over the guidewire. The intravascular length from the access site to the right atrium was assessed. ?? After dilating the tract, a dual lumen PICC ??was inserted over the guidewire. The catheter was flushed with 100U/ml ??heparin and secured in place. ??A sterile dressing was applied. ?? ESTIMATED BLOOD LOSS: less than 30 milliliters. DISCHARGED TO: Recovery and then to home ?? CONDITION: Stable FINDINGS: ??The final fluoroscopic image demonstrates the catheter with its tip at the cavoatrial junction. ??No complications are seen. IMPRESSION: ?? Successful nontunneled PICC exchange via the right basilic vein. PLAN: The catheter is ready for immediate use. ??When treatment is completed, this catheter can be removed at the bedside according to standard hospital protocol. Requested By: FÉLIX ARTHUR MD, MPH Dictated By: ?? MARIELA BATES M.D. ??on Dec 05 2014 ??3:36P This document has been electronically signed by: PAUL AIKEN M.D. on Dec 05 2014 ??4:23P [id number] Procedure Note Provider, MD Tyler - 08/12/2016 PAUL AIKEN M.D. MARIELA BATES M.D. FINAL REPORT The radiology attending physician has personally reviewed this study, and has reviewed and/or edited this written report and agrees with it. ACC# Date Time Exam [id number] Dec 05, 2014 14:02:00 [id number] Exchange PICC Line [id number] Dec 05, 2014 14:02:00 96870 Fluoro Devin Accs R EXAMINATION: NONTUNNELED CENTRAL VENOUS CATHETER EXCHANGE HISTORY: 59-year-old female with breast cancer presenting with dysfunction of her right upper extremity PICC. ATTENDING PRESENCE: Dr. Aiken, the attending radiologist, was present from the beginning to the end of the procedure. SEDATION: The patient did not require conscious sedation for the procedure. TECHNIQUE: The risks, benefits and alternatives were discussed and informed consent was obtained. Prior to beginning the procedure, [place] Protocol was used to confirm the patient's identity and planned procedure. Fluoroscopy time has been recorded in the electronic medical record. Maximum sterile barriers including cap, mask, hand hygiene, sterile gloves, sterile gown, large sterile drape and 2% chlorhexidine for cutaneous antisepsis were used. SITE: The skin over the right basilic vein including the existing PICC was sterilely prepped, draped and infiltrated with 1% lidocaine. A wire was passed through the existing PICC line in position in the right atrium. Existing catheter was then removed over the guidewire. The intravascular length from the access site to the right atrium was assessed. After dilating the tract, a dual lumen PICC was inserted over the guidewire. The catheter was flushed with 100U/ml heparin and secured in place. A sterile dressing was applied. ESTIMATED BLOOD LOSS: less than 30 milliliters. DISCHARGED TO: Recovery and then to home CONDITION: Stable FINDINGS: The final fluoroscopic image demonstrates the catheter with its tip at the cavoatrial junction. No complications are seen. IMPRESSION: Successful nontunneled PICC exchange via the right basilic vein. PLAN: The catheter is ready for immediate use. When treatment is completed, this catheter can be removed at the bedside according to standard hospital protocol. Requested By: FÉLIX ARTHUR MD, MPH Dictated By: MARIELA BATES M.D. on Dec 05 2014 3:36P This document has been electronically signed by: PAUL AIKEN M.D. on Dec 05 2014 4:23P [id number] us Historical Provider MD GARCIA IR PROCEDURES Final R esult * VENOUS ACCESS (12/05/2014 2:02 PM CDT) Anatomical Region Laterality Modality N/A Radiographic Lizeth ging 12/05/2014 2:02 PM CDT Narrative 12/05/2014 4:23 PM CDT PAUL AIKEN M.D. MARIELA BATES M.D. FINAL REPORT The radiology attending physician has personally reviewed this study, and has reviewed and/or edited this written report and agrees with it. ACC# ??Date Time ??Exam [id number] Dec 05, 2014 14:02:00 63158 Exchange PICC Line [id number] Dec 05, 2014 14:02:00 46998 Fluoro Devin Accs R EXAMINATION: ?NONTUNNELED CENTRAL VENOUS CATHETER EXCHANGE HISTORY: 59-year-old female with breast cancer presenting with dysfunction of her right upper extremity PICC. ATTENDING PRESENCE: Dr. Aiken, the attending radiologist, was present from the beginning to the end of the procedure. SEDATION: The patient did not require conscious sedation for the procedure. TECHNIQUE: The risks, benefits and alternatives were discussed and informed consent was obtained. ??Prior to beginning the procedure, [place] Protocol was used to confirm the patient's identity and planned procedure. ??Fluoroscopy time has been recorded in the electronic medical record. Maximum sterile barriers including cap, mask, hand hygiene, sterile gloves, sterile gown, large sterile drape and 2% chlorhexidine for cutaneous antisepsis were used. ?? SITE: ??The skin over the right basilic vein including the existing PICC was sterilely prepped, draped and infiltrated with 1% lidocaine. A wire was passed through the existing PICC line in position in the right atrium. Existing catheter was then removed over the guidewire. The intravascular length from the access site to the right atrium was assessed. ?? After dilating the tract, a dual lumen PICC ??was inserted over the guidewire. The catheter was flushed with 100U/ml ??heparin and secured in place. ??A sterile dressing was applied. ?? ESTIMATED BLOOD LOSS: less than 30 milliliters. DISCHARGED TO: Recovery and then to home ?? CONDITION: Stable FINDINGS: ??The final fluoroscopic image demonstrates the catheter with its tip at the cavoatrial junction. ??No complications are seen. IMPRESSION: ?? Successful nontunneled PICC exchange via the right basilic vein. PLAN: The catheter is ready for immediate use. ??When treatment is completed, this catheter can be removed at the bedside according to standard hospital protocol. Requested By: FÉLIX ARTHUR MD, MPH Dictated By: ?? MARIELA BATES M.D. ??on Dec 05 2014 ??3:36P This document has been electronically signed by: PAUL AIKEN M.D. on Dec 05 2014 ??4:23P [id number] Procedure Note Provider, MD Tyler - 08/12/2016 PAUL AIKEN M.D. MARIELA BATES M.D. FINAL REPORT The radiology attending physician has personally reviewed this study, and has reviewed and/or edited this written report and agrees with it. ACC# Date Time Exam [id number] Dec 05, 2014 14:02:00 02661 Exchange PICC Line [id number] Dec 05, 2014 14:02:00 80476 Fluoro Devin Accs R EXAMINATION: NONTUNNELED CENTRAL VENOUS CATHETER EXCHANGE HISTORY: 59-year-old female with breast cancer presenting with dysfunction of her right upper extremity PICC. ATTENDING PRESENCE: Dr. Aiken, the attending radiologist, was present from the beginning to the end of the procedure. SEDATION: The patient did not require conscious sedation for the procedure. TECHNIQUE: The risks, benefits and alternatives were discussed and informed consent was obtained. Prior to beginning the procedure, [place] Protocol was used to confirm the patient's identity and planned procedure. Fluoroscopy time has been recorded in the electronic medical record. Maximum sterile barriers including cap, mask, hand hygiene, sterile gloves, sterile gown, large sterile drape and 2% chlorhexidine for cutaneous antisepsis were used. SITE: The skin over the right basilic vein including the existing PICC was sterilely prepped, draped and infiltrated with 1% lidocaine. A wire was passed through the existing PICC line in position in the right atrium. Existing catheter was then removed over the guidewire. The intravascular length from the access site to the right atrium was assessed. After dilating the tract, a dual lumen PICC was inserted over the guidewire. The catheter was flushed with 100U/ml heparin and secured in place. A sterile dressing was applied. ESTIMATED BLOOD LOSS: less than 30 milliliters. DISCHARGED TO: Recovery and then to home CONDITION: Stable FINDINGS: The final fluoroscopic image demonstrates the catheter with its tip at the cavoatrial junction. No complications are seen. IMPRESSION: Successful nontunneled PICC exchange via the right basilic vein. PLAN: The catheter is ready for immediate use. When treatment is completed, this catheter can be removed at the bedside according to standard hospital protocol. Requested By: FÉLIX ARTHUR MD, MPH Dictated By: MARIELA BATES M.D. on Dec 05 2014 3:36P This document has been electronically signed by: PAUL AIKEN M.D. on Dec 05 2014 4:23P [id number] Historical Provider IMMichael XR PROCEDURES Final R esult documented in this encounter Visit Diagnoses Diagnosis Fitting and adjustment of vascular catheter Malignant neoplasm of breast (female) (HCC) Malignant neoplasm of breast (female), unspecified site documented in this encounter Care Teams Junior Loan Processor Relationship Specialty Start Date End Date Antoinette Zhu MD [address] [address] PCP - General 08/01/13 07/26/16 documented as of this encounter
--- OUTSIDE RECORDS SUMMARY | 2024-04-26 04:33 | XMS_ITS | Encounter Summary ---
Author Organization [facility] Care Team Providers Care Music Journalist Name Role Phone Antoinette Zhu MD Primary Care Provider [phone] Encounter Details Date Type Department Care Team (Late st Contact Info) Description 08/13/2014 - 08/13/2014 11:59 PM CDT Hospital Encounter [facility] Aft, Sharon Bell MD PhD [address] [place] [address] Malignant neoplasm of breast (female) (HCC) Social History Tobacco Use Types Packs/Day Years Used Date Smoking Tobacco: Former Alcohol Use Standard Drinks/Week Comments No 0 (1 standard drink = 0.6 oz pur e alcohol) Comments Unknown Sex and Gender Information Value Date Recorded Sex Assigned at Not on file 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 NAYELI WHEELER M.D. FINAL REPORT The radiology attending physician has personally reviewed this study, and has reviewed and/or edited this written report and agrees with it. ACC# ??Date Time ??Exam [id number] Aug 13, 2014 12:26:00 [id number] BONE IMG/W.B. EXAMINATION: ?BONE SCINTIGRAPHY (WHOLE-BODY) DATE OF STUDY: ??08/13/2014 RADIOPHARMACEUTICAL: ??21.5 mCi Tc-99m MDP i.v. HISTORY: ??59-year-old woman with recent diagnosis of breast cancer and positive lymph nodes. FINDINGS: ??Delayed whole-body scintigrams were obtained. ??No prior study is available for comparison. The scintigraphic images were correlated with the following additional imaging studies: ??CT of the chest, abdomen, and pelvis 08/13/2014. Area of photopenia in the right knee related to prior knee arthroplasty. There is mild uptake in the left L4-L5 facet related to facet arthritis on CT. Tracer activity on anterior images to right of L4-L5 is most likely related to tracer in the ureter. Moderate uptake in the left knee and both feet related from degenerative changes. There is very mild uptake in the upper thoracic spine due to degenerative disease. Minimal uptake at the left L3 region posteriorly has no CT correlate is most likely related to degenerative changes. ?? IMPRESSION: ?Findings most consistent with degenerative changes. ??No additional lesions to suggest osseous metastatic disease. :: ?? Requested By: AFTSHARON MD, PHD Dictated By: ?? NAYELI WHEELER M.D. ??on Aug 13 2014 ??1:58P This document has been electronically signed by: STARR BALTAZAR M.D. on Aug 13 2014 ??3:02P Procedure Note Provider, MD Tyler - 08/12/2016 STARR BALTAZAR M.D. NAYELI WHEELER M.D. FINAL REPORT The radiology attending physician has personally reviewed this study, and has reviewed and/or edited this written report and agrees with it. ACC# Date Time Exam [id number] Aug 13, 2014 12:26:00 [id number] BONE IMG/W.B. EXAMINATION: BONE SCINTIGRAPHY (WHOLE-BODY) DATE OF STUDY: 08/13/2014 RADIOPHARMACEUTICAL: 21.5 mCi Tc-99m MDP i.v. HISTORY: 59-year-old woman with recent diagnosis of breast cancer and positive lymph nodes. FINDINGS: Delayed whole-body scintigrams were obtained. No prior study is available for comparison. The scintigraphic images were correlated with the following additional imaging studies: CT of the chest, abdomen, and pelvis 08/13/2014. Area of photopenia in the right knee related to prior knee arthroplasty. There is mild uptake in the left L4-L5 facet related to facet arthritis on CT. Tracer activity on anterior images to right of L4-L5 is most likely related to tracer in the ureter. Moderate uptake in the left knee and both feet related from degenerative changes. There is very mild uptake in the upper thoracic spine due to degenerative disease. Minimal uptake at the left L3 region posteriorly has no CT correlate is most likely related to degenerative changes. IMPRESSION: Findings most consistent with degenerative changes. No additional lesions to suggest osseous metastatic disease. :: Requested By: AFT,SHARON Bell MD, PHD Dictated By: NAYELI WHEELER M.D. on Aug 13 2014 1:58P This document has been electronically signed by: STARR BALTAZAR M.D. on Aug 13 2014 3:02P us Historical Provider MD GARCIA NM PROCEDURES Final R esult * CT Abdomen Pelvis W Contrast (08/13/2014 8:22 AM CDT) Anatomical Region Laterality Modality Body N/A Computed Tomogra phy 08/13/2014 8:22 AM CDT Narrative 08/13/2014 3:05 PM CDT GRETA GUILLEN M.D. KEILY PEREA M.D. FINAL REPORT The radiology attending physician has personally reviewed this study, and has reviewed and/or edited this written report and agrees with it. ACC# ??Date Time ??Exam [id number] Aug 13, 2014 08:22:[id number] Chest with contrast [id number] Aug 13, 2014 08:22:[id number] Abd & Pelvis with cont ACC# ??Date Time ??Exam [id number] Aug 13, 2014 08:22:[id number] Chest with contrast [id number] Aug 13, 2014 08:22:[id number] Abd & Pelvis with cont EXAMINATION: ?CT OF THE ABDOMEN AND PELVIS WITH INTRAVENOUS CONTRAST HISTORY: ??59-year-old female with a new diagnosis of breast cancer. TECHNIQUE: Computed tomographic images of the chest, abdomen and pelvis were obtained with intravenous contrast according to standard protocol. The patient was administered 94 mL of Optiray-350 contrast. No immediate complications following contrast administration. FINDINGS: ??Comparison: CT of the chest dated April 22, [address] of the abdomen dated November 28, 2013. The thyroid gland is enlarged with multiple tiny nodules as seen on the prior examination. An unchanged enlarged left axillary lymph node is seen. ??This lymph node measures 1.4 x 2.3 cm and is seen at slice position 45. There is no mediastinal or hilar lymphadenopathy. There are no lung nodules. There is no confluent consolidation. There is no pericardial or pleural effusion. The gallbladder is surgically absent. The liver, stomach, pancreas, spleen and adrenal glands are unremarkable. There is a tiny stone in each kidney. Two tiny hypoattenuating structures are seen within the upper pole right kidney which are iqn-irkkc-hw-characterize with CT. No hydronephrosis is seen. There is diverticulosis of the descending colon and sigmoid colon without diverticulitis. Otherwise, the bowel is normal in caliber without wall thickening or inflammatory change. There is postoperative change compatible with ventral hernia repairs. There is an unchanged lymph node in the right external iliac region measuring 2.7 x 1.6 cm. There is a small unchanged lymph node in the left external iliac region measuring 1 cm at slice position -325. No fluid collection is seen within the pelvis. 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 Bone windows show no osteoblastic or osteolytic lesions. ?? IMPRESSION: 1. There is a stable enlarged left axillary lymph node. No mediastinal or hilar lymphadenopathy. 2.No evidence of pulmonary metastasis. 3. Unchanged enlarged right external iliac lymph node. ?? Requested By: AFTSHARON MD, PHD Dictated By: ?? KEILY PEREA M.D. ??on Aug 13 2014 10:22A This document has been electronically signed by: GRETA GUILLEN M.D. on Aug 13 2014 ??3:05P [id number] Procedure Note Provider, MD Tyler - 08/12/2016 GRETA GUILLEN M.D. KEILY PEREA M.D. FINAL REPORT The radiology attending physician has personally reviewed this study, and has reviewed and/or edited this written report and agrees with it. ACC# Date Time Exam [id number] Aug 13, 2014 08:22:[id number] Chest with contrast [id number] Aug 13, 2014 08:22:[id number] Abd & Pelvis with cont ACC# Date Time Exam [id number] Aug 13, 2014 08:22:[id number] Chest with contrast [id number] Aug 13, 2014 08:22:[id number] Abd & Pelvis with cont EXAMINATION: CT OF THE ABDOMEN AND PELVIS WITH INTRAVENOUS CONTRAST HISTORY: 59-year-old female with a new diagnosis of breast cancer. TECHNIQUE: Computed tomographic images of the chest, abdomen and pelvis were obtained with intravenous contrast according to standard protocol. The patient was administered 94 mL of Optiray-350 contrast. No immediate complications following contrast administration. FINDINGS: Comparison: CT of the chest dated April 22, [address] of the abdomen dated November 28, 2013. The thyroid gland is enlarged with multiple tiny nodules as seen on the prior examination. An unchanged enlarged left axillary lymph node is seen. This lymph node measures 1.4 x 2.3 cm and is seen at slice position 45. There is no mediastinal or hilar lymphadenopathy. There are no lung nodules. There is no confluent consolidation. There is no pericardial or pleural effusion. The gallbladder is surgically absent. The liver, stomach, pancreas, spleen and adrenal glands are unremarkable. There is a tiny stone in each kidney. Two tiny hypoattenuating structures are seen within the upper pole right kidney which are kek-tnrvd-oi-characterize with CT. No hydronephrosis is seen. There is diverticulosis of the descending colon and sigmoid colon without diverticulitis. Otherwise, the bowel is normal in caliber without wall thickening or inflammatory change. There is postoperative change compatible with ventral hernia repairs. There is an unchanged lymph node in the right external iliac region measuring 2.7 x 1.6 cm. There is a small unchanged lymph node in the left external iliac region measuring 1 cm at slice position -325. No fluid collection is seen within the pelvis. 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 Bone windows show no osteoblastic or osteolytic lesions. IMPRESSION: 1. There is a stable enlarged left axillary lymph node. No mediastinal or hilar lymphadenopathy. 2.No evidence of pulmonary metastasis. 3. Unchanged enlarged right external iliac lymph node. Requested By: AFTSHARON MD, PHD Dictated By: KEILY PEREA M.D. on Aug 13 2014 10:22A This document has been electronically signed by: GRETA GUILLEN M.D. on Aug 13 2014 3:05P [id number] us Historical Provider MD GARCIA CT PROCEDURES Final R esult * CT Chest W Contrast (08/13/2014 8:22 AM CDT) Anatomical Region Laterality Modality Body N/A Computed Tomogra phy 08/13/2014 8:22 AM CDT Narrative 08/13/2014 3:05 PM CDT GRETA GUILLEN M.D. KEILY PEREA M.D. FINAL REPORT The radiology attending physician has personally reviewed this study, and has reviewed and/or edited this written report and agrees with it. ACC# ??Date Time ??Exam [id number] Aug 13, 2014 08:22:[id number] Chest with contrast [id number] Aug 13, 2014 08:22:[id number] Abd & Pelvis with cont ACC# ??Date Time ??Exam [id number] Aug 13, 2014 08:22:[id number] Chest with contrast [id number] Aug 13, 2014 08:22:[id number] Abd & Pelvis with cont EXAMINATION: ?CT OF THE ABDOMEN AND PELVIS WITH INTRAVENOUS CONTRAST HISTORY: ??59-year-old female with a new diagnosis of breast cancer. TECHNIQUE: Computed tomographic images of the chest, abdomen and pelvis were obtained with intravenous contrast according to standard protocol. The patient was administered 94 mL of Optiray-350 contrast. No immediate complications following contrast administration. FINDINGS: ??Comparison: CT of the chest dated April 22, [address] of the abdomen dated November 28, 2013. The thyroid gland is enlarged with multiple tiny nodules as seen on the prior examination. An unchanged enlarged left axillary lymph node is seen. ??This lymph node measures 1.4 x 2.3 cm and is seen at slice position 45. There is no mediastinal or hilar lymphadenopathy. There are no lung nodules. There is no confluent consolidation. There is no pericardial or pleural effusion. The gallbladder is surgically absent. The liver, stomach, pancreas, spleen and adrenal glands are unremarkable. There is a tiny stone in each kidney. Two tiny hypoattenuating structures are seen within the upper pole right kidney which are gon-wdwqp-uw-characterize with CT. No hydronephrosis is seen. There is diverticulosis of the descending colon and sigmoid colon without diverticulitis. Otherwise, the bowel is normal in caliber without wall thickening or inflammatory change. There is postoperative change compatible with ventral hernia repairs. There is an unchanged lymph node in the right external iliac region measuring 2.7 x 1.6 cm. There is a small unchanged lymph node in the left external iliac region measuring 1 cm at slice position -325. No fluid collection is seen within the pelvis. 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 Bone windows show no osteoblastic or osteolytic lesions. ?? IMPRESSION: 1. There is a stable enlarged left axillary lymph node. No mediastinal or hilar lymphadenopathy. 2.No evidence of pulmonary metastasis. 3. Unchanged enlarged right external iliac lymph node. ?? Requested By: AFTSHARON MD, PHD Dictated By: ?? KEILY PEREA M.D. ??on Aug 13 2014 10:22A This document has been electronically signed by: GRETA GUILLEN M.D. on Aug 13 2014 ??3:05P [id number] Procedure Note Provider, MD Tyler - 08/12/2016 GRETA GUILLEN M.D. KEILY PEREA M.D. FINAL REPORT The radiology attending physician has personally reviewed this study, and has reviewed and/or edited this written report and agrees with it. ACC# Date Time Exam [id number] Aug 13, 2014 08:22:[id number] Chest with contrast [id number] Aug 13, 2014 08:22:[id number] Abd & Pelvis with cont ACC# Date Time Exam [id number] Aug 13, 2014 08:22:[id number] Chest with contrast [id number] Aug 13, 2014 08:22:[id number] Abd & Pelvis with cont EXAMINATION: CT OF THE ABDOMEN AND PELVIS WITH INTRAVENOUS CONTRAST HISTORY: 59-year-old female with a new diagnosis of breast cancer. TECHNIQUE: Computed tomographic images of the chest, abdomen and pelvis were obtained with intravenous contrast according to standard protocol. The patient was administered 94 mL of Optiray-350 contrast. No immediate complications following contrast administration. FINDINGS: Comparison: CT of the chest dated April 22, [address] of the abdomen dated November 28, 2013. The thyroid gland is enlarged with multiple tiny nodules as seen on the prior examination. An unchanged enlarged left axillary lymph node is seen. This lymph node measures 1.4 x 2.3 cm and is seen at slice position 45. There is no mediastinal or hilar lymphadenopathy. There are no lung nodules. There is no confluent consolidation. There is no pericardial or pleural effusion. The gallbladder is surgically absent. The liver, stomach, pancreas, spleen and adrenal glands are unremarkable. There is a tiny stone in each kidney. Two tiny hypoattenuating structures are seen within the upper pole right kidney which are kgm-nhkna-xp-characterize with CT. No hydronephrosis is seen. There is diverticulosis of the descending colon and sigmoid colon without diverticulitis. Otherwise, the bowel is normal in caliber without wall thickening or inflammatory change. There is postoperative change compatible with ventral hernia repairs. There is an unchanged lymph node in the right external iliac region measuring 2.7 x 1.6 cm. There is a small unchanged lymph node in the left external iliac region measuring 1 cm at slice position -325. No fluid collection is seen within the pelvis. 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 Bone windows show no osteoblastic or osteolytic lesions. IMPRESSION: 1. There is a stable enlarged left axillary lymph node. No mediastinal or hilar lymphadenopathy. 2.No evidence of pulmonary metastasis. 3. Unchanged enlarged right external iliac lymph node. Requested By: AFTSHARON MD, PHD Dictated By: KEILY PEREA M.D. on Aug 13 2014 10:22A This document has been electronically signed by: GRETA GUILLEN M.D. on Aug 13 2014 3:05P [id number] us Historical Provider IMMichael CT PROCEDURES Final R esult documented in this encounter Visit Diagnoses Diagnosis Malignant neoplasm of breast (female) (HCC) Malignant neoplasm of breast (female), unspecified site documented in this encounter Care Teams Music Journalist Relationship Specialty Start Date End Date Antoinette Zhu MD [address] [id number] PCP - General 08/01/13 07/26/16 documented as of this encounter
--- OUTSIDE RECORDS SUMMARY | 2024-04-26 04:33 | XMS_ITS | Encounter Summary ---
Author Organization [facility] Facility Care Team Providers Care Scouring Pads Supervisor Name Role Phone Antoinette Zhu MD Primary Care Provider [phone] Encounter Details Date Type Department Care Team (Late st Contact Info) Description 10/23/2014 1:33 AM CDT - 10/28/2014 12:34 PM T Hospital Encounter [facility] Aft, Farzaneh Bell MD PhD [address] [place] [address] Bloodstream infection due to central venous catheter; Septicemia (CMS/HCC); Body mass index (BMI) of 45.0-49.9 in adult (CMS/HCC); Sepsis (CMS/HCC); Morbid obesity (CMS/HCC); Cellulitis and abscess of trunk; Malignant neoplasm of breast (female) (CMS/HCC); Restless legs syndrome; Esophageal reflux; Obstructive sleep apnea; Type 2 or unspecified type diabetes mellitus; Essential hypertension; Mononeuritis; Fitting and adjustment of vascular catheter; Personal history of tobacco use, presenting hazards to health; Personal history of pulmonary embolism; Acquired absence of breast and absent nipple; Other specified procedure as the cause of abnormal reaction of patient or of later complication Social History Tobacco Use Types Packs/Day Years Used Date Smoking Tobacco: Former Alcohol Use Standard Drinks/Week Comments No 0 (1 standard drink = 0.6 oz pur e alcohol) Comments Unknown Sex and Gender Information Value Date Recorded Sex Assigned at Not on file 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 Gender Identity Not on file Sexual Orientation Not on file documented as of this encounter Last Filed Vital Signs Vital Sign Reading Time Taken Comments Blood Pressure 131/85 10/28/2014 8:00 AM CDT Pulse 80 10/28/2014 8:00 AM CDT Temperature - - Respiratory Rate - - Oxygen Saturation 98% 10/28/2014 8:00 AM CDT Inhaled Oxygen Concentration - - Weight 122.5 kg (269 lb 15.6 oz) 10/23/2014 7:50 AM CDT Height 157.5 cm (5' 2 ) 10/23/2014 7:50 AM CDT Body Mass Index 49.38 10/23/2014 7:50 AM CDT documented in this encounter Medications [...] 07/19/2013 02/24/2017 documented as of this encounter Miscellaneous Notes * Op Note - Provider, MD Tyler - 10/25/2014 12:00 AM CDT Patient: Mohsen Marques Reg No: [id number] U H #: [id number] Admit Dt.: 10/23/2014 : 1955 Pt Type: 100 Room No: 75990 Attending: Farzaneh Ramey MD, PHD Surgeon: Heaven Mercedes M.D. Dictating: Heaven Mercedes M.D. Service Dt: 10/25/2014 OPERATIVE REPORT FIRST DRAMATIC ARTS HISTORIAN: Adriel Doll M.D. ANESTHESIA: The patient received a total of 3 milligrams of intravenous Dilaudid plus 25 mL of 1% lidocaine. PREOPERATIVE DIAGNOSIS (ES): Right chest wall infection. POSTOPERATIVE DIAGNOSIS (ES): Right chest wall infection. NAME OF OPERATION: Removal of right-sided port. INDICATIONS FOR PROCEDURE: Mohsen is a patient who is status post bilateral mastectomies and she recently had a port placed for chemotherapy, which is scheduled to begin next week. She presented with malaise, fever, and she had a large chest wall fluid collection with cellulitis. She also developed skin changes over her right-sided port, which appeared to be consistent with a dermal strep infection. Given that we need to get all of her infections cleared, so she can begin chemotherapy and given the fact that it is unclear whether the port is contributing to the infection, given the location of the skin changes, we recommended port removal. Preoperatively she and I discussed the procedure and the expected postoperative course. DESCRIPTION OF PROCEDURE: The procedure was done at the patient's bedside. She received a total 3 milligrams of intravenous Dilaudid in 0.5 to 1 milligram doses. A total of 25 mL of 1% lidocaine was used for local anesthetic. After the area was prepped and draped, local anesthetic was infiltrated into the tissue and it was used throughout the case, as needed. We re-opened her old incision using a 15-blade scalpel and used the scalpel to dissect down to the port itself, which was actually very, very deep. Once we were finally able to see the port, we were able to sharply divide her anchoring sutures, which were removed intact. The port was then removed intact. Prior immediately before removing the port, we did take a culture swab of the cavity. Once the port was removed, we had easily obtained hemostasis with direct pressure. The incision was then closed with several interrupted vertical mattress 3-0 nylon sutures. At the conclusion of the procedure, the port was discarded. ATTESTATION OF PRESENCE: I was present and at the bedside for the entire procedure. SPECIMENS REMOVED: Right chest wall culture. COMPLICATIONS: None. Electronically Signed By Heaven Mercedes M.D. 11/05/2014 08:10 A Heaven Mercedes M.D. [facility] #[id number] Editing MT: TD: 10/25/2014 14:56:00 cc: Farzaneh Ramey MD, PHD Heaven Mercedes M.D. documented in this encounter Plan of Treatment Not on file documented as of this encounter Procedures Procedure Name Priority Date/Time Associated Diagnosis Comments BLOOD CELL COUNT (CBC) Routine 10/28/2014 12:08 AM CDT DISCHARGE LABORATORY CUMULATIVE REPORT 10/28/2014 BLOOD GLUCOSE, POC Routine 10/27/2014 9: 57 PM CDT BLOOD GLUCOSE, POC Routine 10/27/2014 5: 20 PM CDT SERUM VANCOMYCIN, TROUGH DRUG LEVEL Routine 10/27/2014 1:10 PM CDT BLOOD GLUCOSE, POC Routine 10/27/2014 12 :12 PM CDT BLOOD GLUCOSE, POC Routine 10/27/2014 7 :22 AM CDT PLASMA BASIC METABOLIC PANEL Routine 10/26/2014 11:28 PM CDT BLOOD CELL COUNT (CBC) Routine 10/26/2014 11:28 PM CDT BLOOD GLUCOSE, POC Routine 10/26/2014 9: 04 PM CDT BLOOD GLUCOSE, POC Routine 10/26/2014 5: 02 PM CDT BLOOD GLUCOSE, POC Routine 10/26/2014 12 :30 PM CDT BLOOD GLUCOSE, POC Routine 10/26/2014 7: 55 AM CDT PLASMA BASIC METABOLIC PANEL Routine 10/26/2014 12:29 AM CDT BLOOD CELL COUNT (CBC) Routine 10/26/2014 12:29 AM CDT BLOOD GLUCOSE, POC Routine 10/25/2014 9: 08 PM CDT BLOOD GLUCOSE, POC Routine 10/25/2014 5: 42 PM CDT AEROBIC/ANAEROBIC CULTURE AND GRAM STAIN, CDR Routine 10/25/2014 3:17 PM CDT BLOOD GLUCOSE, POC Routine 10/25/2014 12 :37 PM CDT BLOOD GLUCOSE, POC Routine 10/25/2014 8: 26 AM CDT PLASMA BASIC METABOLIC PANEL Routine 10/25/2014 8:14 AM CDT BLOOD CELL COUNT (CBC) Routine 10/25/2014 8:14 AM CDT BLOOD CELL MORPHOLOGIC EXAM Routine 10/25/2014 8:14 AM CDT ALL MICROBIOLOGY REPORT SECTION Routine 10/25/2014 12:00 AM CDT BLOOD GLUCOSE, POC Routine 10/24/2014 7: 26 PM CDT BLOOD GLUCOSE, POC Routine 10/24/2014 3: 45 PM CDT US SOFT TISSUE ABSCESS DRAIN Routine 10/24/2014 2:53 PM CDT AEROBIC CULTURE AND GRAM STAIN, CDR Routine 10/24/2014 2:45 PM CDT BLOOD GLUCOSE, POC Routine 10/24/2014 1: 14 PM CDT SERUM VANCOMYCIN, TROUGH DRUG LEVEL Routine 10/24/2014 11:11 AM CDT PLASMA PROTHROMBIN TIME (PT) Routine 10/24/2014 11:11 AM CDT BLOOD GLUCOSE, POC Routine 10/24/2014 8: 51 AM CDT ALL MICROBIOLOGY REPORT SECTION Routine 10/24/2014 12:00 AM CDT PLASMA BASIC METABOLIC PANEL Routine 10/23/2014 11:23 PM CDT BLOOD CELL COUNT (CBC) Routine 10/23/2014 11:23 PM CDT BLOOD GLUCOSE, POC Routine 10/23/2014 8: 57 PM CDT BLOOD GLUCOSE, POC Routine 10/23/2014 4: 19 PM CDT BLOOD GLUCOSE, POC Routine 10/23/2014 12 :42 PM CDT BLOOD HEMOGLOBIN A1C Routine 10/23/2014 9:08 AM CDT BLOOD CELL COUNT (CBC) Routine 10/23/2014 9:08 AM CDT BLOOD GLUCOSE, POC Routine 10/23/2014 8: 26 AM CDT BLOOD GLUCOSE, POC Routine 10/23/2014 3: 20 AM CDT BLOOD CULTURE, CDR Routine 10/23/2014 12 :20 AM CDT BLOOD CULTURE, CDR Routine 10/23/2014 12 :20 AM CDT BLOOD CULTURE, CDR Routine 10/23/2014 12 :20 AM CDT ALL MICROBIOLOGY REPORT SECTION Routine 10/23/2014 12:00 AM CDT ALL MICROBIOLOGY REPORT SECTION Routine 10/23/2014 12:00 AM CDT ALL MICROBIOLOGY REPORT SECTION Routine 10/23/2014 12:00 AM CDT BLOOD GLUCOSE, POC Routine 10/22/2014 7: 53 PM CDT SERUM TROPONIN I Routine 10/22/2014 7:47 PM CDT SERUM LIPID PANEL Routine 10/22/2014 7:4 7 PM CDT PLASMA BASIC METABOLIC PANEL Routine 10/22/2014 7:47 PM CDT BLOOD LACTIC ACID Routine 10/22/2014 7:4 7 PM CDT URINALYSIS Routine 10/22/2014 7:47 PM CDT BLOOD CELL COUNT (CBC) Routine 10/22/2014 7:47 PM CDT CHEST RADIOGRAPHY, FRONTAL (AP), LATERAL Routine 10/22/2014 7:16 PM CDT documented in this encounter Results * (ABNORMAL) Blood cell count (CBC) (10/28/2014 12:08 AM CDT) MCH 27.9 26.7 - 33.7 pg HISTORICAL RESULTS WBC 8.9 3.8 - 9.8 K/cumm HISTORICAL RESULTS MCHC 31.3(L) 32.7 - 35.5 g/dl HISTORICAL RESULTS RBC 3.13(L) 3.90 - 5.00 M/cumm HISTORICAL RESULTS Rdw 14.1 11.8 - 14.6 % HISTORICAL RESULTS Hgb 8.8(L) 12.1 - 15.1 g/dl HISTORICAL RESULTS Platelets 273 140 - 440 K/cumm HISTORICAL RESULTS Hct 27.9(L) 36.1 - 44.3 % HISTORICAL RESULTS MPV 8.0 6.8 - 10.4 fl HISTORICAL RESULTS MCV 89.1 80.0 - 97.6 fl HISTORICAL RESULTS Neutrophils 53.0 38.7 - 74.5 % HISTORICAL RESULTS Lymphocytes 29.5 20.0 - 54.3 % HISTORICAL RESULTS Monos 6.6 4.3 - 13.5 % HISTORICAL RESULTS Eosinophils 9.9(H) 0.0 - 6.0 % HISTORICAL RESULTS Basophils 1.0 0.0 - 3.0 % HISTORICAL RESULTS Neutrophils, abs 4.7 1.8 - 6.6 K/cumm HISTORICAL RESULTS Lymphocytes, abs 2.6 1.2 - 3.3 K/cumm HISTORICAL RESULTS Monocytes, absolute 0.6 0.2 - 1.2 K/cumm HISTORICAL RESULTS Eosinophils, abs 0.9(H) 0.0 - 0.5 K/cumm HISTORICAL RESULTS Basophils, abs 0.1 0.0 - 0.2 K/cumm HISTORICAL RESULTS Blood specimen (specimen) 10/28/2014 12:[address] [facility] Historical Provider LAB BLOOD ORDERABLES Deann l Result HISTORICAL RESULTS * DISCHARGE LABORATORY CUMULATIVE REPORT (10/28/2014) Narrative 10/28/2014 Ordered by an unspecified provider. Result [facility] Historical Provider LAB BLOOD ORDERABLES Deann l Result * Blood glucose, POC (10/27/2014 9:57 PM CDT) Glucose, POC, bld 126 70 - 199 mg/dl HISTORICAL RESULTS Blood specimen (specimen) 10/27/2014 9:[address] [facility] Farzaneh Ramey MD PhD LAB BLOOD ORDERABLES Final Result HISTORICAL RESULTS * Blood glucose, POC (10/27/2014 5:20 PM CDT) Glucose, POC, bld 94 70 - 199 mg/dl HISTORICAL RESULTS Blood specimen (specimen) 10/27/2014 5:[address] [facility] Farzaneh Ramey MD PhD LAB BLOOD ORDERABLES Final Result Performing Organization Address [facility] Phone Number HISTORICAL RESULTS * Serum vancomycin, trough drug level (10/27/2014 1:10 PM CDT) Vancomycin, trough 13.7 10.0 - 20.9 mcg/ml HISTORICAL RESULTS Comment: Interpretive Data Therapeutic Range: ?? Uncomplicated skin and soft tissue infections: 10-20 mcg/mL ?? All other infections: ??15-20 mcg/mL Current interpretive data was last revised on 12. Serum 10/27/2014 1:[address] [facility] Mary Diehl MD LAB BLOOD ORDERABLES Final Resul t Performing Organization Address [facility] Phone Number HISTORICAL RESULTS * Blood glucose, POC (10/27/2014 12:12 PM CDT) Glucose, POC, bld 104 70 - 199 mg/dl HISTORICAL RESULTS Blood specimen (specimen) 10/27/2014 12:[address] [facility] Farzaneh Ramey MD PhD LAB BLOOD ORDERABLES Final Result Performing Organization Address [facility] Phone Number HISTORICAL RESULTS * Blood glucose, POC (10/27/2014 7:22 AM CDT) Glucose, POC, bld 107 70 - 199 mg/dl HISTORICAL RESULTS Blood specimen (specimen) 10/27/2014 7:[address] [facility] Farzaneh Ramey MD PhD LAB BLOOD ORDERABLES Final Result Performing Organization Address [facility] de Phone Number HISTORICAL RESULTS * Plasma basic metabolic panel (10/26/2014 11:28 PM CDT) Sodium 140 135 - 145 mmol/L HISTORICAL RESULTS K, pl 3.9 3.3 - 4.9 mmol/L HISTORICAL RESULTS Chloride 105 97 - 110 mmol/L HISTORICAL RESULTS CO2 27 22 - 32 mmol/L HISTORICAL RESULTS A. gap 8 0 - 16 mmol/L HISTORICAL RESULTS Glucose 125 70 - 199 mg/dl HISTORICAL RESULTS BUN 17 8 - 25 mg/dl HISTORICAL RESULTS Creatinine 0.77 0.60 - 1.10 mg/dl HISTORICAL RESULTS Calcium 9.2 8.6 - 10.3 mg/dl HISTORICAL RESULTS Plasma 10/26/2014 11:2 8 PM CDT Mary Diehl MD LAB BLOOD ORDERABLES Final Resul t HISTORICAL RESULTS * (ABNORMAL) Blood cell count (CBC) (10/26/2014 11:28 PM CDT) WBC 8.6 3.8 - 9.8 K/cumm HISTORICAL RESULTS RBC 3.61(L) 3.90 - 5.00 M/cumm HISTORICAL RESULTS Hgb 10.1(L) 12.1 - 15.1 g/dl HISTORICAL RESULTS Hct 32.1(L) 36.1 - 44.3 % HISTORICAL RESULTS MCV 88.9 80.0 - 97.6 fl HISTORICAL RESULTS MCH 28.1 26.7 - 33.7 pg HISTORICAL RESULTS MCHC 31.6(L) 32.7 - 35.5 g/dl HISTORICAL RESULTS Rdw 13.9 11.8 - 14.6 % HISTORICAL RESULTS Platelets 311 140 - 440 K/cumm HISTORICAL RESULTS MPV 8.3 6.8 - 10.4 fl HISTORICAL RESULTS Neutrophils 46.4 38.7 - 74.5 % HISTORICAL RESULTS Lymphocytes 33.9 20.0 - 54.3 % HISTORICAL RESULTS Monos 7.4 4.3 - 13.5 % HISTORICAL RESULTS Eosinophils 11.8(H) 0.0 - 6.0 % HISTORICAL RESULTS Basophils 0.5 0.0 - 3.0 % HISTORICAL RESULTS Neutrophils, abs 4.0 1.8 - 6.6 K/cumm HISTORICAL RESULTS Lymphocytes, abs 2.9 1.2 - 3.3 K/cumm HISTORICAL RESULTS Monocytes, absolute 0.6 0.2 - 1.2 K/cumm HISTORICAL RESULTS Eosinophils, abs 1.0(H) 0.0 - 0.5 K/cumm HISTORICAL RESULTS Basophils, abs 0.0 0.0 - 0.2 K/cumm HISTORICAL RESULTS Blood specimen (specimen) 10/26/2014 11:28 PM CDT Mary Diehl MD LAB BLOOD ORDERABLES Final Resul t Performing Organization Address [facility] Phone Number HISTORICAL RESULTS * Blood glucose, POC (10/26/2014 9:04 PM CDT) Glucose, POC, bld 133 70 - 199 mg/dl HISTORICAL RESULTS Blood specimen (specimen) 10/26/2014 9:04 PM CDT Farzaneh Ramey MD PhD LAB BLOOD ORDERABLES Final Result Performing Organization Address [facility] Phone Number HISTORICAL RESULTS * Blood glucose, POC (10/26/2014 5:02 PM CDT) Glucose, POC, bld 133 70 - 199 mg/dl HISTORICAL RESULTS Blood specimen (specimen) 10/26/2014 5:02 PM CDT Farzaneh Ramey MD PhD LAB BLOOD ORDERABLES Final Result Performing Organization Address [facility] Phone Number HISTORICAL RESULTS * Blood glucose, POC (10/26/2014 12:30 PM CDT) Glucose, POC, bld 95 70 - 199 mg/dl HISTORICAL RESULTS Blood specimen (specimen) 10/26/2014 12:30 PM CDT Farzaneh Ramey MD PhD LAB BLOOD ORDERABLES Final Result Performing Organization Address [facility] de Phone Number HISTORICAL RESULTS * Blood glucose, POC (10/26/2014 7:55 AM CDT) Glucose, POC, bld 124 70 - 199 mg/dl HISTORICAL RESULTS Blood specimen (specimen) 10/26/2014 7:[address] [facility] Farzaneh Ramey MD PhD LAB BLOOD ORDERABLES Final Result Performing Organization Address [facility] de Phone Number HISTORICAL RESULTS * Plasma basic metabolic panel (10/26/2014 12:29 AM CDT) Sodium 139 135 - 145 mmol/L HISTORICAL RESULTS K, pl 4.2 3.3 - 4.9 mmol/L HISTORICAL RESULTS Chloride 106 97 - 110 mmol/L HISTORICAL RESULTS CO2 26 22 - 32 mmol/L HISTORICAL RESULTS A. gap 7 0 - 16 mmol/L HISTORICAL RESULTS Glucose 118 70 - 199 mg/dl HISTORICAL RESULTS BUN 17 8 - 25 mg/dl HISTORICAL RESULTS Creatinine 0.61 0.60 - 1.10 mg/dl HISTORICAL RESULTS Calcium 8.7 8.6 - 10.3 mg/dl HISTORICAL RESULTS Plasma 10/26/2014 12:2 9 AM CDT us Mary Diehl MD LAB BLOOD ORDERABLES Final Resul t Performing Organization Address [facility] de Phone Number HISTORICAL RESULTS * (ABNORMAL) Blood cell count (CBC) (10/26/2014 12:29 AM CDT) WBC 8.7 3.8 - 9.8 K/cumm HISTORICAL RESULTS RBC 3.24(L) 3.90 - 5.00 M/cumm HISTORICAL RESULTS Hgb 9.0(L) 12.1 - 15.1 g/dl HISTORICAL RESULTS Hct 28.8(L) 36.1 - 44.3 % HISTORICAL RESULTS MCV 88.8 80.0 - 97.6 fl HISTORICAL RESULTS MCH 27.9 26.7 - 33.7 pg HISTORICAL RESULTS MCHC 31.4(L) 32.7 - 35.5 g/dl HISTORICAL RESULTS Rdw 13.9 11.8 - 14.6 % HISTORICAL RESULTS Platelets 256 140 - 440 K/cumm HISTORICAL RESULTS MPV 8.3 6.8 - 10.4 fl HISTORICAL RESULTS Neutrophils 53.7 38.7 - 74.5 % HISTORICAL RESULTS Lymphocytes 25.7 20.0 - 54.3 % HISTORICAL RESULTS Monos 7.8 4.3 - 13.5 % HISTORICAL RESULTS Eosinophils 11.6(H) 0.0 - 6.0 % HISTORICAL RESULTS Basophils 1.2 0.0 - 3.0 % HISTORICAL RESULTS Neutrophils, abs 4.7 1.8 - 6.6 K/cumm HISTORICAL RESULTS Lymphocytes, abs 2.2 1.2 - 3.3 K/cumm HISTORICAL RESULTS Monocytes, absolute 0.7 0.2 - 1.2 K/cumm HISTORICAL RESULTS Eosinophils, abs 1.0(H) 0.0 - 0.5 K/cumm HISTORICAL RESULTS Basophils, abs 0.1 0.0 - 0.2 K/cumm HISTORICAL RESULTS Blood specimen (specimen) 10/26/2014 12:29 AM CDT Mary Diehl MD LAB BLOOD ORDERABLES Final Resul t Performing Organization Address [facility] de Phone Number HISTORICAL RESULTS * Blood glucose, POC (10/25/2014 9:08 PM CDT) Glucose, POC, bld 99 70 - 199 mg/dl HISTORICAL RESULTS Blood specimen (specimen) 10/25/2014 9:08 PM CDT Farzaneh Ramey MD PhD LAB BLOOD ORDERABLES Final Result Performing Organization Address [facility] de Phone Number HISTORICAL RESULTS * Blood glucose, POC (10/25/2014 5:42 PM CDT) Glucose, POC, bld 106 70 - 199 mg/dl HISTORICAL RESULTS Blood specimen (specimen) 10/25/2014 5:42 PM CDT Farzaneh Ramey MD PhD LAB BLOOD ORDERABLES Final Result Performing Organization Address [facility] de Phone Number HISTORICAL RESULTS * Aerobic/anaerobic culture and Gram stain (10/25/2014 3:17 PM CDT) Wound (Port site) 10/25/2014 3:17 PM CDT 10/25/2014 3:24 PM CDT Impressions HISTORICAL RESULTS - 10/28/2014 9:46 AM CDT Specimens submitted from normally sterile body sites will have all bacterial morphotypes identified. ??Specimens that contain grossly mixed evelio and/or are from body sites that are not normally sterile will be examined for Staphylococcus aureus, Pseudomonas aeruginosa, beta-hemolytic strep, vancomycin-resistant Enterococcus, Bacteroides fragilis, Clostridium perfringens and fungus. ??If any of these are isolated, the organism will be reported. Current interpretive data was last revised on 2013. Narrative HISTORICAL RESULTS - 10/28/2014 9:46 AM CDT No growth Rare polymorphonuclear leukocytes seen. No organisms seen. Historical Provider MD LAB MICROBIOLOGY - GENERA L ORDERABLES Final Result Performing Organization Address [facility] de Phone Number HISTORICAL RESULTS * Blood glucose, POC (10/25/2014 12:37 PM CDT) Glucose, POC, bld 96 70 - 199 mg/dl HISTORICAL RESULTS Blood specimen (specimen) 10/25/2014 12:37 PM CDT Farzaneh Ramey MD PhD LAB BLOOD ORDERABLES Final Result Performing Organization Address [facility] de Phone Number HISTORICAL RESULTS * Blood glucose, POC (10/25/2014 8:26 AM CDT) Glucose, POC, bld 162 70 - 199 mg/dl HISTORICAL RESULTS Blood specimen (specimen) 10/25/2014 8:26 AM CDT Farzaneh Ramey MD PhD LAB BLOOD ORDERABLES Final Result Performing Organization Address [facility] de Phone Number HISTORICAL RESULTS * Plasma basic metabolic panel (10/25/2014 8:14 AM CDT) Sodium 138 135 - 145 mmol/L HISTORICAL RESULTS K, pl 4.0 3.3 - 4.9 mmol/L HISTORICAL RESULTS Chloride 106 97 - 110 mmol/L HISTORICAL RESULTS CO2 25 22 - 32 mmol/L HISTORICAL RESULTS A. gap 7 0 - 16 mmol/L HISTORICAL RESULTS Glucose 147 70 - 199 mg/dl HISTORICAL RESULTS BUN 14 8 - 25 mg/dl HISTORICAL RESULTS Creatinine 0.69 0.60 - 1.10 mg/dl HISTORICAL RESULTS Calcium 8.7 8.6 - 10.3 mg/dl HISTORICAL RESULTS Plasma 10/25/2014 8:14 AM CDT us Historical Provider LAB BLOOD ORDERABLES Deann bowman Result HISTORICAL RESULTS * (ABNORMAL) Blood cell count (CBC) (10/25/2014 8:14 AM CDT) WBC 8.8 3.8 - 9.8 K/cumm HISTORICAL RESULTS RBC 3.72(L) 3.90 - 5.00 M/cumm HISTORICAL RESULTS Hgb 10.3(L) 12.1 - 15.1 g/dl HISTORICAL RESULTS Hct 33.3(L) 36.1 - 44.3 % HISTORICAL RESULTS MCV 89.7 80.0 - 97.6 fl HISTORICAL RESULTS MCH 27.7 26.7 - 33.7 pg HISTORICAL RESULTS MCHC 30.9(L) 32.7 - 35.5 g/dl HISTORICAL RESULTS Rdw 13.7 11.8 - 14.6 % HISTORICAL RESULTS Platelets 270 140 - 440 K/cumm HISTORICAL RESULTS MPV 7.9 6.8 - 10.4 fl HISTORICAL RESULTS Neutrophils 45.1 38.7 - 74.5 % HISTORICAL RESULTS Lymphocytes 31.7 20.0 - 54.3 % HISTORICAL RESULTS Monos 8.6 4.3 - 13.5 % HISTORICAL RESULTS Eosinophils 14.3(H) 0.0 - 6.0 % HISTORICAL RESULTS Comment:{Verified by periphe ral smear.} Basophils 0.3 0.0 - 3.0 % HISTORICAL RESULTS Neutrophils, abs 4.0 1.8 - 6.6 K/cumm HISTORICAL RESULTS Lymphocytes, abs 2.8 1.2 - 3.3 K/cumm HISTORICAL RESULTS Monocytes, absolute 0.8 0.2 - 1.2 K/cumm HISTORICAL RESULTS Eosinophils, abs 1.3(H) 0.0 - 0.5 K/cumm HISTORICAL RESULTS Basophils, abs 0.0 0.0 - 0.2 K/cumm HISTORICAL RESULTS Blood specimen (specimen) 10/25/2014 8:14 AM CDT us Historical Provider LAB BLOOD ORDERABLES Deann bowman Result HISTORICAL RESULTS * Blood cell morphologic exam (10/25/2014 8:14 AM CDT) Morphology scrn Original results obtained required verification by alternate method(s). Refer to CBC and/or observation sections for detailed results HISTORICAL RESULTS Observation Increased immature granulocytes noted on screening; morphological examination may be appropriate HISTORICAL RESULTS Blood specimen (specimen) 10/25/2014 8:14 AM CDT us Historical Provider MD LAB BLOOD ORDERABLES Deann l Result HISTORICAL RESULTS * All Microbiology Report Section (10/25/2014 12:00 AM CDT) 10/25/2014 Narrative HISTORICAL RESULTS - 10/28/2014 12:52 PM CDT ? [facility] ?[address] [facility] [address] ?[place], [place] [address] ? Patient Name: ??MOHSEN MARQUES ? Med Rec Number: [id number] ? Fin Number: ?[id number] ? Date: ?1955 ? Sex/Age: ? Female 59 years ? Admit Date: ?10/23/2014 ? Discharge Date: 10/28/2014 ? Doctor: ?Aft , Farzaneh L ? Facility: ?[facility] ? Location: ?[address] [address] [id number] ?* Abnormal ??A Alert ??f Footnote ??^ Corrected ??L Low ??H High ?i Interp Data ??@ Ref Lab ? Chart Type:Cumulative ?* * * * MICROBIOLOGY - WOUND and EXUDATES * * * * ?PROCEDURE: Aerobic and Anaerobic Culture, Wound and Gram Stain ? SOURCE: Wound ? COLLECTED: 07/04/15 ??1517 ?BODY SITE: Port site ? STARTED: 07/04/15 ??1525 ? FREE TEXT SOURCE: ? DIRECT SPECIMEN EXAMINATION ? Stain ? REPORTED: 07/04/15 1628 ? Rare polymorphonuclear leukocytes seen. ? No organisms seen. ? FINAL REPORT ? REPORTED: 10/28/14 0946 ? No growth ? ORDER COMMENTS ? (1)Specimen received on an ESwab. ? Site Details: ??upper right chest ?* * * ??Interpretive Results ??* * * ? (1)Specimens submitted from normally sterile body sites will have ? all bacterial morphotypes identified. ??Specimens that contain ? grossly mixed evelio and/or are from body sites that are not ? normally sterile will be examined for Staphylococcus aureus, ? Pseudomonas aeruginosa, beta-hemolytic strep, ? vancomycin-resistant Enterococcus, Bacteroides fragilis, ? Clostridium perfringens and fungus. ??If any of these are ? isolated, the organism will be reported.Current interpretive ? data was last revised on 2013. ? us Historical Provider LAB MICROBIOLOGY - GENERA L ORDERABLES Final Result Performing Organization Address [facility] de Phone Number HISTORICAL RESULTS * Blood glucose, POC (10/24/2014 7:26 PM CDT) Glucose, POC, bld 131 70 - 199 mg/dl HISTORICAL RESULTS Blood specimen (specimen) 10/24/2014 7:26 PM CDT Farzaneh Ramey MD PhD LAB BLOOD ORDERABLES Final Result Performing Organization Address [facility] de Phone Number HISTORICAL RESULTS * Blood glucose, POC (10/24/2014 3:45 PM CDT) Glucose, POC, bld 85 70 - 199 mg/dl HISTORICAL RESULTS Blood specimen (specimen) 10/24/2014 3:45 PM CDT us Farzaneh Ramey MD PhD LAB BLOOD ORDERABLES Final Result HISTORICAL RESULTS * US Soft Tissue Abscess Drain (10/24/2014 2:53 PM CDT) Anatomical Region Laterality Modality Entire body N/A Ultrasound 10/24/2014 2:53 PM CDT Narrative 10/24/2014 6:20 PM CDT GERARDO MC M.D. FINAL REPORT ACC# ??Date Time ??Exam [id number] Oct 24, 2014 14:53:00 [id number] Fluid Drain Soft tissue EXAMINATION: ?PERCUTANEOUS DRAINAGE HISTORY: Patient is status post radical mastectomy and has a large fluid collection under the left chest wall surgical site. She also has some overlying erythema and is tender in this area. There is suspicion of infection. ATTENDING PRESENCE: Dr. Mc, the attending radiologist, was present from the beginning to the end of the procedure. SEDATION: Moderate sedation was administered under the attending physician's direction and continuous monitoring by a trained nurse specialist who was independent from those actually performing the procedure. ??Total monitored sedation time was 16 minutes. TECHNIQUE: The risks, benefits and alternatives were discussed and informed consent was obtained. ??Prior to beginning the procedure, Lucama Protocol was used to confirm the patient's identity and planned procedure. ??If fluoroscopy was used, fluoroscopy time has been recorded in the electronic medical record. Maximum sterile barriers including cap, mask, hand hygiene, sterile gloves, sterile gown, large sterile drape and 2% chlorhexidine for cutaneous antisepsis were used. ?? The skin overlying the fluid collection in the left chest was sterilely prepped, draped and infiltrated with 1% lidocaine. ?? The targeted collection was then accessed with a 18 gauge needle using imaging guidance which included ultrasound. ??Contrast was injected to confirm needle placement. ?? A guidewire was advanced and coiled within the collection before dilating the tract to 12 armenian. ??A 12 Palauan [place]osen loop was then advanced over the guidewire, formed in the collection, and secured in place with a stitch of 0-Prolene. The catheter was connected to gravity drainage. ??A sterile dressing was applied. A sample of the fluid was sent for culture. ESTIMATED BLOOD LOSS: Minimal DISCHARGED TO: Recovery and then to inpatient unit ?? CONDITION: Stable FINDINGS: Images from the procedure revealed a collection that was quite large extending from approximately the anterior chest down to the posterior axillary line mostly above the surgical incision. There were some loculations identified with ultrasound.. The fluid appeared serosanguineous. IMPRESSION: ?? Successful image guided chest wall fluid collection drainage. PLAN: This tube should not be flushed ??with saline. Will monitor the output to determine future plan. Requested By: ADRIEL MANCIA M.D. Dictated By: ?? GERARDO MC M.D. ??on Oct ??2014 ??6:20P This document has been electronically signed by: GERARDO MC M.D. on Oct ??2014 ??6:20P [id number] Procedure Note Provider, MD Tyler - 08/12/2016 GERARDO MC M.D. FINAL REPORT ACC# Date Time Exam [id number] Oct 24, 2014 14:53:00 [id number] Fluid Drain Soft tissue EXAMINATION: PERCUTANEOUS DRAINAGE HISTORY: Patient is status post radical mastectomy and has a large fluid collection under the left chest wall surgical site. She also has some overlying erythema and is tender in this area. There is suspicion of infection. ATTENDING PRESENCE: Dr. Mc, the attending radiologist, was present from the beginning to the end of the procedure. SEDATION: Moderate sedation was administered under the attending physician's direction and continuous monitoring by a trained nurse specialist who was independent from those actually performing the procedure. Total monitored sedation time was 16 minutes. TECHNIQUE: The risks, benefits and alternatives were discussed and informed consent was obtained. Prior to beginning the procedure, Lucama Protocol was used to confirm the patient's identity and planned procedure. If fluoroscopy was used, fluoroscopy time has been recorded in the electronic medical record. Maximum sterile barriers including cap, mask, hand hygiene, sterile gloves, sterile gown, large sterile drape and 2% chlorhexidine for cutaneous antisepsis were used. The skin overlying the fluid collection in the left chest was sterilely prepped, draped and infiltrated with 1% lidocaine. The targeted collection was then accessed with a 18 gauge needle using imaging guidance which included ultrasound. Contrast was injected to confirm needle placement. A guidewire was advanced and coiled within the collection before dilating the tract to 12 armenian. A 12 Palauan P[place] loop was then advanced over the guidewire, formed in the collection, and secured in place with a stitch of 0-Prolene. The catheter was connected to gravity drainage. A sterile dressing was applied. A sample of the fluid was sent for culture. ESTIMATED BLOOD LOSS: Minimal DISCHARGED TO: Recovery and then to inpatient unit CONDITION: Stable FINDINGS: Images from the procedure revealed a collection that was quite large extending from approximately the anterior chest down to the posterior axillary line mostly above the surgical incision. There were some loculations identified with ultrasound.. The fluid appeared serosanguineous. IMPRESSION: Successful image guided chest wall fluid collection drainage. PLAN: This tube should not be flushed with saline. Will monitor the output to determine future plan. Requested By: ADRIEL MANCIA M.D. Dictated By: GERARDO MC M.D. on Oct 24 2014 6:20P This document has been electronically signed by: GERARDO MC M.D. on Oct 24 2014 6:20P [id number] us Historical Provider MD GARCIA US PROCEDURES Final R esult * Aerobic culture and Gram stain (10/24/2014 2:45 PM CDT) Wound (Chest, left) 10/24/2014 2:45 PM CDT 10/24/2014 3:40 PM CDT Impressions HISTORICAL RESULTS - 10/27/2014 8:54 AM CDT Specimens submitted from normally sterile body sites will have all bacterial morphotypes identified. ??Specimens that contain grossly mixed evelio and/or are from body sites that are not normally sterile will be examined for Staphylococcus aureus, Pseudomonas aeruginosa, beta-hemolytic strep, vancomycin-resistant Enterococcus and fungus. ??If any of these are isolated, the organism will be reported. Current interpretive data was last revised on 2013. Narrative HISTORICAL RESULTS - 10/27/2014 8:54 AM CDT Moderate polymorphonuclear leukocytes seen. No organisms seen. No growth us Historical Provider LAB MICROBIOLOGY - GENERA L ORDERABLES Final Result Performing Organization Address [facility] de Phone Number HISTORICAL RESULTS * Blood glucose, POC (10/24/2014 1:14 PM CDT) Glucose, POC, bld 84 70 - 199 mg/dl HISTORICAL RESULTS Blood specimen (specimen) 10/24/2014 1:14 PM CDT Farzaneh Ramey MD PhD LAB BLOOD ORDERABLES Final Result Performing Organization Address [facility] Phone Number HISTORICAL RESULTS * (ABNORMAL) Serum vancomycin, trough drug level (10/24/2014 11:11 AM CDT) Vancomycin, trough 9.3(L) 10.0 - 20.9 mcg/ml HISTORICAL RESULTS Comment: Interpretive Data Therapeutic Range: ?? Uncomplicated skin and soft tissue infections: 10-20 mcg/mL ?? All other infections: ??15-20 mcg/mL Current interpretive data was last revised on 12. Serum 10/24/2014 11:1 1 AM CDT Kaushal Samuel IV, MD LAB BLOOD ORDERABLES Fi nal Result Performing Organization Address [facility] de Phone Number HISTORICAL RESULTS * (ABNORMAL) Plasma prothrombin time (PT) (10/24/2014 11:11 AM CDT) Prothrombin time (PT) 13.6(H) 10.0 - 13.3 seconds HISTORICAL RESULTS INR 1.23(H) 0.90 - 1.20 HISTORIC AL RESULTS Comment: Interpretive Data Inpatient therapeutic ranges* Atrial fibrillation ?2.0-3.0 INR Venous thrombo-embolism ?2.0-3.0 INR Bioprosthetic heart valve ?* Mechanical heart valve, bileaflet or tilting disk,aortic position ? 2.0-3.0 INR All other,or bileaflet or tilting disk, in mitral position ? 2.5-3.5 INR *See the pharmacy resource directory (PHRED) for an updated copy of the Tool Book at [email or web address] Current Interpretive Data was last revised 2011. Plasma 10/24/2014 11:1 1 AM CDT Historical Provider MD LAB BLOOD ORDERABLES Deann l Result Performing Organization Address City/[facility] Co de Phone Number HISTORICAL RESULTS * Blood glucose, POC (10/24/2014 8:51 AM CDT) Glucose, POC, bld 101 70 - 199 mg/dl HISTORICAL RESULTS Blood specimen (specimen) 10/24/2014 8:51 AM CDT Farzaneh Ramey MD PhD LAB BLOOD ORDERABLES Final Result Performing Organization Address [facility] Co de Phone Number HISTORICAL RESULTS * All Microbiology Report Section (10/24/2014 12:00 AM CDT) 10/24/2014 Narrative HISTORICAL RESULTS - 10/28/2014 12:52 PM CDT ? [facility] ?[address] [facility] [address] ?[place], [place] [address] ? Patient Name: ??MOHSEN MARQUES ? Med Rec Number: [id number] ? Fin Number: ?[id number] ? Date: ?1955 ? Sex/Age: ? Female 59 years ? Admit Date: ?10/23/2014 ? Discharge Date: 10/28/2014 ? Doctor: ?Aft , Farzaneh L ? Facility: ?[facility] ? Location: ?[address] [address] 01 ?* Abnormal ??A Alert ??f Footnote ??^ Corrected ??L Low ??H High ?i Interp Data ??@ Ref Lab ? Chart Type:Cumulative ?* * * * MICROBIOLOGY - WOUND and EXUDATES * * * * ?PROCEDURE: Aerobic Culture, Wound and Gram Stain ? SOURCE: Wound ? COLLECTED: 10/24/14 ??1445 ?BODY SITE: Chest, left ? STARTED: 10/24/14 ??1541 ? FREE TEXT SOURCE: ? DIRECT SPECIMEN EXAMINATION ? Stain ? REPORTED: 10/24/14 1621 ? Moderate polymorphonuclear leukocytes seen. ? No organisms seen. ? FINAL REPORT ? REPORTED: 10/27/14 0854 ? No growth ? ORDER COMMENTS ? (1)Site: wall fluid collection ? 10/24/2014 15:41:25 CDT ?* * * ??Interpretive Results ??* * * ? (1)Specimens submitted from normally sterile body sites will have ? all bacterial morphotypes identified. ??Specimens that contain ? grossly mixed evelio and/or are from body sites that are not ? normally sterile will be examined for Staphylococcus aureus, ? Pseudomonas aeruginosa, beta-hemolytic strep, ? vancomycin-resistant Enterococcus and fungus. ??If any of these ? are isolated, the organism will be reported.Current interpretive ? data was last revised on 2013. ? us Historical Provider LAB MICROBIOLOGY - GENERA L ORDERABLES Final Result Performing Organization Address [facility] Co de Phone Number HISTORICAL RESULTS * Plasma basic metabolic panel (10/23/2014 11:23 PM CDT) Pathologist [facility] Sodium 136 135 - 145 mmol/L HISTORICAL RESULTS K, pl 4.2 3.3 - 4.9 mmol/L HISTORICAL RESULTS Chloride 103 97 - 110 mmol/L HISTORICAL RESULTS CO2 25 22 - 32 mmol/L HISTORICAL RESULTS A. gap 8 0 - 16 mmol/L HISTORICAL RESULTS Glucose 111 70 - 199 mg/dl HISTORICAL RESULTS BUN 16 8 - 25 mg/dl HISTORICAL RESULTS Creatinine 0.70 0.60 - 1.10 mg/dl HISTORICAL RESULTS Calcium 9.1 8.6 - 10.3 mg/dl HISTORICAL RESULTS Plasma 10/23/2014 11:2 3 PM CDT Kaushal Samuel IV, MD LAB BLOOD ORDERABLES Fi nal Result Performing Organization Address [facility] de Phone Number HISTORICAL RESULTS * (ABNORMAL) Blood cell count (CBC) (10/23/2014 11:23 PM CDT) Pathologist [facility] WBC 14.0(H) 3.8 - 9.8 K/cumm HISTORICAL RESULTS RBC 3.62(L) 3.90 - 5.00 M/cumm HISTORICAL RESULTS Hgb 10.1(L) 12.1 - 15.1 g/dl HISTORICAL RESULTS Hct 32.0(L) 36.1 - 44.3 % HISTORICAL RESULTS MCV 88.6 80.0 - 97.6 fl HISTORICAL RESULTS MCH 27.8 26.7 - 33.7 pg HISTORICAL RESULTS MCHC 31.4(L) 32.7 - 35.5 g/dl HISTORICAL RESULTS Rdw 14.0 11.8 - 14.6 % HISTORICAL RESULTS Platelets 254 140 - 440 K/cumm HISTORICAL RESULTS MPV 8.4 6.8 - 10.4 fl HISTORICAL RESULTS Neutrophils 58.7 38.7 - 74.5 % HISTORICAL RESULTS Lymphocytes 24.0 20.0 - 54.3 % HISTORICAL RESULTS Monos 8.8 4.3 - 13.5 % HISTORICAL RESULTS Eosinophils 8.1(H) 0.0 - 6.0 % HISTORICAL RESULTS Basophils 0.4 0.0 - 3.0 % HISTORICAL RESULTS Neutrophils, abs 8.2(H) 1.8 - 6.6 K/cumm HISTORICAL RESULTS Lymphocytes, abs 3.4(H) 1.2 - 3.3 K/cumm HISTORICAL RESULTS Monocytes, absolute 1.2 0.2 - 1.2 K/cumm HISTORICAL RESULTS Eosinophils, abs 1.1(H) 0.0 - 0.5 K/cumm HISTORICAL RESULTS Basophils, abs 0.1 0.0 - 0.2 K/cumm HISTORICAL RESULTS Blood specimen (specimen) 10/23/2014 11:23 PM CDT Kaushal Samuel IV, MD LAB BLOOD ORDERABLES Fi nal Result Performing Organization Address [facility] de Phone Number HISTORICAL RESULTS * Blood glucose, POC (10/23/2014 8:57 PM CDT) Glucose, POC, bld 156 70 - 199 mg/dl HISTORICAL RESULTS Blood specimen (specimen) 10/23/2014 8:57 PM CDT Farzaneh Ramey MD PhD LAB BLOOD ORDERABLES Final Result Performing Organization Address [facility] de Phone Number HISTORICAL RESULTS * Blood glucose, POC (10/23/2014 4:19 PM CDT) Glucose, POC, bld 154 70 - 199 mg/dl HISTORICAL RESULTS Blood specimen (specimen) 10/23/2014 4:19 PM CDT Farzaneh Ramey MD PhD LAB BLOOD ORDERABLES Final Result Performing Organization Address [facility] de Phone Number HISTORICAL RESULTS * Blood glucose, POC (10/23/2014 12:42 PM CDT) Glucose, POC, bld 90 70 - 199 mg/dl HISTORICAL RESULTS Blood specimen (specimen) 10/23/2014 12:42 PM CDT Farzaneh Ramey MD PhD LAB BLOOD ORDERABLES Final Result Performing Organization Address City/[facility] Co de Phone Number HISTORICAL RESULTS * (ABNORMAL) Blood cell count (CBC) (10/23/2014 9:08 AM CDT) WBC 12.4(H) 3.8 - 9.8 K/cumm HISTORICAL RESULTS RBC 3.41(L) 3.90 - 5.00 M/cumm HISTORICAL RESULTS Hgb 9.4(L) 12.1 - 15.1 g/dl HISTORICAL RESULTS Hct 30.3(L) 36.1 - 44.3 % HISTORICAL RESULTS MCV 88.9 80.0 - 97.6 fl HISTORICAL RESULTS MCH 27.7 26.7 - 33.7 pg HISTORICAL RESULTS MCHC 31.2(L) 32.7 - 35.5 g/dl HISTORICAL RESULTS Rdw 14.5 11.8 - 14.6 % HISTORICAL RESULTS Platelets 236 140 - 440 K/cumm HISTORICAL RESULTS Comment:{No clot detected in sample.} MPV 8.1 6.8 - 10.4 fl HISTORICAL RESULTS Neutrophils 64.1 38.7 - 74.5 % HISTORICAL RESULTS Lymphocytes 19.2(L) 20.0 - 54.3 % HISTORICAL RESULTS Monos 10.5 4.3 - 13.5 % HISTORICAL RESULTS Eosinophils 5.9 0.0 - 6.0 % HISTORICAL RESULTS Basophils 0.3 0.0 - 3.0 % HISTORICAL RESULTS Neutrophils, abs 8.0(H) 1.8 - 6.6 K/cumm HISTORICAL RESULTS Lymphocytes, abs 2.4 1.2 - 3.3 K/cumm HISTORICAL RESULTS Monocytes, absolute 1.3(H) 0.2 - 1.2 K/cumm HISTORICAL RESULTS Eosinophils, abs 0.7(H) 0.0 - 0.5 K/cumm HISTORICAL RESULTS Basophils, abs 0.0 0.0 - 0.2 K/cumm HISTORICAL RESULTS Blood specimen (specimen) 10/23/2014 9:08 AM CDT Anastasia Riley MEDIA MANAGER LAB BLOOD ORDERABLES Fin al Result HISTORICAL RESULTS * Blood hemoglobin A1C (10/23/2014 9:08 AM CDT) Hgb A1C 5.7 4.0 - 6.0 % HISTORICAL RESULTS Estimated average glucose 117 mg/dl HISTORICAL RESULTS Comment: The ADA recommends reporting an estimated Average Glucose (eAG) with all Hemoglobin A1c results using the equation derived from a study of 507 normal and diabetic adults. ??Minority populations were underrepresented and children were not included. ??(Diabetes Care 31:9807-4528, 2008). ??The eAG is not equivalent to a fasting glucose. Blood specimen (specimen) 10/23/2014 9:08 AM CDT Anastasia Riley MEDIA MANAGER LAB BLOOD ORDERABLES Fin al Result Performing Organization Address [facility] de Phone Number HISTORICAL RESULTS * Blood glucose, POC (10/23/2014 8:26 AM CDT) Glucose, POC, bld 102 70 - 199 mg/dl HISTORICAL RESULTS Blood specimen (specimen) 10/23/2014 8:26 AM CDT Farzaneh Ramey MD PhD LAB BLOOD ORDERABLES Final Result Performing Organization Address [facility] de Phone Number HISTORICAL RESULTS * Blood glucose, POC (10/23/2014 3:20 AM CDT) Glucose, POC, bld 111 70 - 199 mg/dl HISTORICAL RESULTS Blood specimen (specimen) 10/23/2014 3:20 AM CDT Farzaneh Ramey MD PhD LAB BLOOD ORDERABLES Final Result Performing Organization Address [facility] de Phone Number HISTORICAL RESULTS * Blood culture (10/23/2014 12:20 AM CDT) Blood specimen (specimen) (Central line) 10/23/2014 12:20 AM CDT 10/23/2014 2:23 AM CDT Impressions HISTORICAL RESULTS - 10/28/2014 7:16 AM CDT Blood cultures are incubated for [...] identification may be performed using the Verigene Nanosphere Gram Positive Blood Culture Assay. ??The Nanosphere assay detects microbial DNA in positive blood culture broth via hybridization of target DNA to capture oligonucleotides on a microarray. ??This assay has been cleared by the [place] Food and Drug Administration and its performance characteristics have been verified by the [facility]. Current Interpretive Data was last revised on 2013. Narrative HISTORICAL RESULTS - 10/28/2014 7:16 AM CDT No growth Historical Provider MD DAILEY MICROBIOLOGY - GENERA L ORDERABLES Final Result Performing Organization Address [facility] de Phone Number HISTORICAL RESULTS * Blood culture (10/23/2014 12:20 AM CDT) Blood specimen (specimen) (Hand, right) 10/23/2014 12:20 AM CDT 10/23/2014 2:16 AM CDT Impressions HISTORICAL RESULTS - 10/28/2014 7:16 AM CDT Blood cultures are incubated for [...] identification may be performed using the Verigene Nanosphere Gram Positive Blood Culture Assay. ??The Nanosphere assay detects microbial DNA in positive blood culture broth via hybridization of target DNA to capture oligonucleotides on a microarray. ??This assay has been cleared by the [place] Food and Drug Administration and its performance characteristics have been verified by the [facility]. Current Interpretive Data was last revised on 2013. Narrative HISTORICAL RESULTS - 10/28/2014 7:16 AM CDT No growth Historical Provider MD DAILEY MICROBIOLOGY - GENERA L ORDERABLES Final Result Performing Organization Address [facility] de Phone Number HISTORICAL RESULTS * Blood culture (10/23/2014 12:20 AM CDT) Blood specimen (specimen) (Cephalic, right) 10/23/2014 12:20 AM CDT 10/23/2014 2:25 AM CDT Impressions HISTORICAL RESULTS - 10/28/2014 7:16 AM CDT Blood cultures are incubated for [...] organism identification may be performed using the Companion Canine Nanosphere Gram Positive Blood Culture Assay. ??The Nanosphere assay detects microbial DNA in positive blood culture broth via hybridization of target DNA to capture oligonucleotides on a microarray. ??This assay has been cleared by the [place] Food and Drug Administration and its performance characteristics have been verified by the [facility]. Current Interpretive Data was last revised on 2013. Narrative HISTORICAL RESULTS - 10/28/2014 7:16 AM CDT No growth Historical Provider LAB MICROBIOLOGY - GENERA L ORDERABLES Final Result Performing Organization Address [facility] de Phone Number HISTORICAL RESULTS * All Microbiology Report Section (10/23/2014 12:00 AM CDT) 10/23/2014 Narrative HISTORICAL RESULTS - 10/28/2014 12:52 PM CDT ? [facility] ?[address] [facility] [address] ?[place], [place] [address] ? Patient Name: ??MOHSEN MARQUES ? Med Rec Number: [id number] ? Fin Number: ?[id number] ? Date: ?1955 ? Sex/Age: ? Female 59 years ? Admit Date: ?10/23/2014 ? Discharge Date: 10/28/2014 ? Doctor: ?Aft , Farzaneh L ? Facility: ?[facility] ? Location: ?[address] [address] 01 ?* Abnormal ??A Alert ??f Footnote ??^ Corrected ??L Low ??H High ?i Interp Data ??@ Ref Lab ? Chart Type:Cumulative ?* * * * MICROBIOLOGY - BLOOD/STERILE FLUID * * * * ?PROCEDURE: Culture, Blood ? SOURCE: Blood ? COLLECTED: 10/23/ ??0020 ?BODY SITE: Central line ? STARTED: 10/23/14 ??0223 ? FREE TEXT SOURCE: ? FINAL REPORT ? REPORTED: 10/28/14715 ? No growth ?* * * ??Interpretive [...] identification may be ? performed using the Companion Canine Nanosphere Gram Positive Blood ? Culture Assay. ??The Nanosphere assay detects microbial DNA in ? positive blood culture broth via hybridization of target DNA to ? capture oligonucleotides on a microarray. ??This assay has been ? cleared by the [place] Food and Drug Administration and ? its performance characteristics have been verified by the ? [facility].Current ? Interpretive Data was last revised on 2013. ? us Historical Provider LAB MICROBIOLOGY - GENERA L ORDERABLES Final Result HISTORICAL RESULTS * All Microbiology Report Section (10/23/2014 12:00 AM CDT) 10/23/2014 Narrative HISTORICAL RESULTS - 10/28/2014 12:52 PM CDT ? [facility] ?[facility] ?[place], [facility] [address] ? Patient Name: ??MOHSEN MARQUES ? Med Rec Number: [id number] ? Fin Number: ?[id number] ? Date: ?1955 ? Sex/Age: ? Female 59 years ? Admit Date: ?10/23/2014 ? Discharge Date: 10/28/2014 ? Doctor: ?Aft , Farzaneh L ? Facility: ?[facility] ? Location: ?[address] [address] 01 ?* Abnormal ??A Alert ??f Footnote ??^ Corrected ??L Low ??H High ?i Interp Data ??@ Ref Lab ? Chart Type:Cumulative ?* * * * MICROBIOLOGY - BLOOD/STERILE FLUID * * * * ?PROCEDURE: Culture, Blood ? SOURCE: Blood ? COLLECTED: 10/23/14 ??0020 ?BODY SITE: Hand, right ? STARTED: 10/23/14 ??0216 ? FREE TEXT SOURCE: ? FINAL REPORT ? REPORTED: 10/28/14715 ? No growth ?* * * ??Interpretive [...] identification may be ? performed using the AramisAutoigene Nanosphere Gram Positive Blood ? Culture Assay. ??The Nanosphere assay detects microbial DNA in ? positive blood culture broth via hybridization of target DNA to ? capture oligonucleotides on a microarray. ??This assay has been ? cleared by the [place] Food and Drug Administration and ? its performance characteristics have been verified by the ? [facility].Current ? Interpretive Data was last revised on 2013. ? us Historical Provider MD LAB MICROBIOLOGY - GENERA L ORDERABLES Final Result HISTORICAL RESULTS * All Microbiology Report Section (10/23/2014 12:00 AM CDT) 10/23/2014 Narrative HISTORICAL RESULTS - 10/28/2014 12:52 PM CDT ? [facility] ?[facility] ?[place], [place] [address] ? Patient Name: ??MOHSEN MARQUES ? Med Rec Number: [id number] ? Fin Number: ?[id number] ? Date: ?1955 ? Sex/Age: ? Female 59 years ? Admit Date: ?10/23/2014 ? Discharge Date: 10/28/2014 ? Doctor: ?Aft , Farzaneh L ? Facility: ?[facility] ? Location: ?[address] [address] 01 ?* Abnormal ??A Alert ??f Footnote ??^ Corrected ??L Low ??H High ?i Interp Data ??@ Ref Lab ? Chart Type:Cumulative ?* * * * MICROBIOLOGY - BLOOD/STERILE FLUID * * * * ?PROCEDURE: Culture, Blood ? SOURCE: Blood ? COLLECTED: 10/23/14 ??0020 ?BODY SITE: Cephalic, right ? STARTED: 10/23/14 ??0225 ? FREE TEXT SOURCE: ? FINAL REPORT ? REPORTED: 10/28/14715 ? No growth ?* * * ??Interpretive [...] identification may be ? performed using the Verigene Nanosphere Gram Positive Blood ? Culture Assay. ??The Nanosphere assay detects microbial DNA in ? positive blood culture broth via hybridization of target DNA to ? capture oligonucleotides on a microarray. ??This assay has been ? cleared by the [place] Food and Drug Administration and ? its performance characteristics have been verified by the ? [facility].Current ? Interpretive Data was last revised on 2013. ? Historical Provider MD LAB MICROBIOLOGY - GENERA L ORDERABLES Final Result Performing Organization Address [facility] de Phone Number HISTORICAL RESULTS * Blood glucose, POC (10/22/2014 7:53 PM CDT) Glucose, POC, bld 128 70 - 199 mg/dl HISTORICAL RESULTS Blood specimen (specimen) 10/22/2014 7:53 PM CDT Historical Provider LAB BLOOD ORDERABLES Deann l Result Performing Organization Address [facility] de Phone Number HISTORICAL RESULTS * Urinalysis (10/22/2014 7:47 PM CDT) Color, ur Yellow Yellow HISTORICAL RESULTS Clarity, ur Clear Clear HISTORIC AL RESULTS Specific gravity, ur 1.015 1.003 - 1.030 HISTORICAL RESULTS pH, ur 7.0 5.0 - 8.0 HISTORICAL RESULTS Protein, ur Negative Trace HISTORIC AL RESULTS Glucose, ur Negative Negative HISTORIC AL RESULTS Ketones, ur Negative Negative HISTORIC AL RESULTS Bilirubin, ur Negative Negative HISTOR ICAL RESULTS U Blood Negative Negative HISTORICAL RESULTS Urobilinogen, quant, ur <2.0 0.0 - 2.0 mg/dl HISTORICAL RESULTS Nitrites, ur Negative Negative HISTORI JOY RESULTS Leukocyte esterase, ur Negative Negative HISTORICAL RESULTS Urine 10/22/2014 7:47 PM CDT Roshni Goel MD LAB BLOOD ORDERABLES Final Result HISTORICAL RESULTS * Serum lipid panel (10/22/2014 7:47 PM CDT) Cholesterol 162 0 - 200 mg/dl HISTORICAL RESULTS Comment: Interpretive Data Desirable: ?<200 mg/dL Borderline high: ??200-239 mg/dL High: ? >240 mg/dL Literature Reference: National Cholesterol Education Program (NCEP) Expert Panel on Detection, Evaluation, and Treatment of High Blood Cholesterol in Adults (Adult Treatment Panel III). ??Circulation 2004; 110:227. Current interpretive data was last revised on 2005. Triglycerides 67 0 - 150 mg/dl HISTORICAL RESULTS Comment: Interpretive Data Desirable: ? < 150 mg/dL Borderline High: ? 150 - 199 mg/dL High: ?> 200 mg/dL Literature Reference: See Cholesterol Current interpretive data was last revised on 06. HDL 63 40 - 199 mg/dl HISTORICAL RESULTS Comment: Interpretive Data Less than 40 mg/dL - low; A major risk factor for heart disease. Greater than or equal to 60 mg/dL - High; ??considered protective of heart disease. Literature Reference: See Cholesterol Current interpretive data was last revised on 2007. LDL 86 0 - 129 mg/dl HISTORICAL RESULTS Comment: Interpretive Data Optimal: ? < 100 mg/dL Near Optimal: ?100 - 129 mg/dL Borderline High: ?? 130 - 159 mg/dL High: ?> 160 mg/dL Literature Reference: See Cholesterol Current interpretive data was last revised on 06. Non-HDL cholesterol, calculated 99 mg/dl HISTORICAL RESULTS Comment: Interpretive Data When triglycerides are >200 mg/dL, non-HDL C is a secondary target of therapy, with a goal 30 mg/dL higher than the identified LDL-C goal. Reference: ??See Cholesterol Reference. Current interpretive data was last revised 2011. Serum 10/22/2014 7:47 PM CDT Roshni Goel MD LAB BLOOD ORDERABLES Final Result Performing Organization Address [facility] de Phone Number HISTORICAL RESULTS * (ABNORMAL) Plasma basic metabolic panel (10/22/2014 7:47 PM CDT) Sodium 134(L) 135 - 145 mmol/L HISTORICAL RESULTS K, pl 4.8 3.3 - 4.9 mmol/L HISTORICAL RESULTS Chloride 100 97 - 110 mmol/L HISTORICAL RESULTS CO2 23 22 - 32 mmol/L HISTORICAL RESULTS A. gap 11 0 - 16 mmol/L HISTORICAL RESULTS Glucose 129 70 - 199 mg/dl HISTORICAL RESULTS BUN 12 8 - 25 mg/dl HISTORICAL RESULTS Creatinine 0.69 0.60 - 1.10 mg/dl HISTORICAL RESULTS Calcium 9.1 8.6 - 10.3 mg/dl HISTORICAL RESULTS Plasma 10/22/2014 7:47 PM CDT Roshni Goel MD LAB BLOOD ORDERABLES Final Result Performing Organization Address [facility] de Phone Number HISTORICAL RESULTS * Serum troponin I (10/22/2014 7:47 PM CDT) Troponin I <0.03 0.00 - 0.03 ng/ml HISTORICAL RESULTS Comment: Interpretive Data Serial determinations are recommended for the diagnosis of myocardial infarction (Third [place] Definition of Myocardial Infarction. ??J Am Wang Cardiol 2012;60:1581-98). Current interpretive data was last revised on 13. Serum 10/22/2014 7:47 PM CDT Roshni Goel MD LAB BLOOD ORDERABLES Final Result Performing Organization Address [facility] Co de Phone Number HISTORICAL RESULTS * (ABNORMAL) Blood cell count (CBC) (10/22/2014 7:47 PM CDT) WBC 14.9(H) 3.8 - 9.8 K/cumm HISTORICAL RESULTS RBC 3.95 3.90 - 5.00 M/cumm HISTORICAL RESULTS Hgb 11.4(L) 12.1 - 15.1 g/dl HISTORICAL RESULTS Hct 34.8(L) 36.1 - 44.3 % HISTORICAL RESULTS MCV 88.2 80.0 - 97.6 fl HISTORICAL RESULTS MCH 28.9 26.7 - 33.7 pg HISTORICAL RESULTS MCHC 32.8 32.7 - 35.5 g/dl HISTORICAL RESULTS Rdw 14.2 11.8 - 14.6 % HISTORICAL RESULTS Platelets 307 140 - 440 K/cumm HISTORICAL RESULTS MPV 7.8 6.8 - 10.4 fl HISTORICAL RESULTS Neutrophils 78.9(H) 38.7 - 74.5 % HISTORICAL RESULTS Lymphocytes 12.8(L) 20.0 - 54.3 % HISTORICAL RESULTS Monos 5.7 4.3 - 13.5 % HISTORICAL RESULTS Eosinophils 2.2 0.0 - 6.0 % HISTORICAL RESULTS Basophils 0.4 0.0 - 3.0 % HISTORICAL RESULTS Neutrophils, abs 11.7(H) 1.8 - 6.6 K/cumm HISTORICAL RESULTS Lymphocytes, abs 1.9 1.2 - 3.3 K/cumm HISTORICAL RESULTS Monocytes, absolute 0.9 0.2 - 1.2 K/cumm HISTORICAL RESULTS Eosinophils, abs 0.3 0.0 - 0.5 K/cumm HISTORICAL RESULTS Basophils, abs 0.1 0.0 - 0.2 K/cumm HISTORICAL RESULTS Blood specimen (specimen) 10/22/2014 7:47 PM CDT Roshni Goel MD LAB BLOOD ORDERABLES Final Result HISTORICAL RESULTS * Blood lactic acid (10/22/2014 7:47 PM CDT) Lactic acid 1.3 0.7 - 2.1 mmol/L HISTORICAL RESULTS Blood specimen (specimen) 10/22/2014 7:47 PM CDT Roshni Goel MD LAB BLOOD ORDERABLES Final Result HISTORICAL RESULTS * CHEST RADIOGRAPHY, FRONTAL (AP), LATERAL (10/22/2014 7:16 PM CDT) Anatomical Region Laterality Modality N/A Radiographic Lizeth ging 10/22/2014 7:16 PM CDT Narrative 10/23/2014 9:05 AM CDT ANTONIO CAMARA M.D. JAGRUTI TRINIDAD M.D. FINAL REPORT The radiology attending physician has personally reviewed this study, and has reviewed and/or edited this written report and agrees with it. ACC# ??Date Time ??Exam [id number] Oct 22, 2014 19:16:00 [id number] Chest 2 views Frontl & Lat EXAMINATION: ?? Chest 2 views HISTORY: ??Fevers chills concern for sepsis IMPRESSION: ?? Comparison to 10/21/2013. A right internal jugular port catheter terminates at the superior cavoatrial junction, unchanged. There is a kink in the port catheter tubing at the level of the skin entry site. The study is limited by the patient's body habitus. The cardiomediastinal silhouette is normal. Increased airspace opacity in left lung base likely represent a combination of overlying soft tissue and atelectasis. There is no pleural effusion or pneumothorax. Requested By: ROSHNI GOEL M.D. Dictated By: ?? JAGRUTI TRINIDAD M.D. ??on Oct ??2014 ??7:47P This document has been electronically signed by: ANTONIO CAMARA M.D. on Oct 23 2014 ??9:05A [id number] Procedure Note Provider, MD Tyler - 08/12/2016 Avery HARRIS M.D. FINAL REPORT The radiology attending physician has personally reviewed this study, and has reviewed and/or edited this written report and agrees with it. ACC# Date Time Exam [id number] Oct 22, 2014 19:16:00 [id number] Chest 2 views Frontl & Lat EXAMINATION: Chest 2 views HISTORY: Fevers chills concern for sepsis IMPRESSION: Comparison to 10/21/2013. A right internal jugular port catheter terminates at the superior cavoatrial junction, unchanged. There is a kink in the port catheter tubing at the level of the skin entry site. The study is limited by the patient's body habitus. The cardiomediastinal silhouette is normal. Increased airspace opacity in left lung base likely represent a combination of overlying soft tissue and atelectasis. There is no pleural effusion or pneumothorax. Requested By: ROSHNI GOEL M.D. Dictated By: JAGRUTI TRINIDAD M.D. on Oct 22 2014 7:47P This document has been electronically signed by: ANTONIO CAMARA M.D. on Oct 23 2014 9:05A [id number] us Historical Provider MD GARCIA XR PROCEDURES Final R esult documented in this encounter Visit Diagnoses Diagnosis Bloodstream infection due to central venous catheter Septicemia (HCC) Body mass index (BMI) of 45.0-49.9 in adult (HCC) Sepsis (HCC) Morbid obesity (HCC) Morbid obesity Cellulitis and abscess of trunk Malignant neoplasm of breast (female) (HCC) Malignant neoplasm of breast (female), unspecified site Restless legs syndrome Restless legs syndrome (RLS) Esophageal reflux Obstructive sleep apnea Obstructive sleep apnea (adult) (pediatric) Type 2 or unspecified type diabetes mellitus Essential hypertension Unspecified essential hypertension Mononeuritis Mononeuritis of unspecified site Fitting and adjustment of vascular catheter Personal history of tobacco use, presenting hazards to health Personal history of pulmonary embolism Acquired absence of breast and absent nipple Acquired absence of breast and nipple Other specified procedure as the cause of abnormal reaction of patient or of later complication documented in this encounter Care Teams Scouring Pads Supervisor Relationship Specialty Start Date End Date Antoinette Zhu MD [id number] [id number] PCP - General 08/01/13 07/26/16 documented as of this encounter
--- OUTSIDE RECORDS SUMMARY | 2024-04-26 04:33 | XMS_ITS | Encounter Summary ---
Author Organization [facility] Facility Care Team Providers Care Rural [employer] Name Role Phone Antoinette Zhu MD Primary Care Provider [phone] Encounter Details Date Type Department Care Team (Late st Contact Info) Description 11/05/2014 - 11/05/2014 11:59 PM CDT Hospital Encounter [facility] Aft, Farzaneh Bell MD PhD [address] [place] [address] Encounter for fitting and adjustment of non-vascular catheter NEC Social History Tobacco Use Types Packs/Day Years Used Date Smoking Tobacco: Former Alcohol Use Standard Drinks/Week Comments No 0 (1 standard drink = 0.6 oz pur e alcohol) Comments Unknown Sex and Gender Information Value Date Recorded Sex Assigned at Not on file Legal Sex Female 12:24 AM [employer] Gender Identity Not on file Sexual [...] Procedure Name Priority Date/Time Associated Diagnosis Comments DRAINAGE CATHETER EXCHANGE Routine 11/05/2014 2:57 PM CDT ABSCESS CATHETER INJECTION Routine 11/05/2014 2:57 PM CDT ABSCESS TUBE EXCHANGE Routine 11/05/2014 2:57 PM CDT FISTULOGRAM ABSCESS SINUS TRACT Routine 11/05/2014 2:57 PM CDT FISTULOGRAM ABSCESS SINUS TRACT Routine 11/05/2014 2:57 PM CDT documented in this encounter Results * Fistulogram Abscess Sinus Tract (11/05/2014 2:57 PM CDT) Anatomical Region Laterality Modality Head and Neck N/A X-Ray Angiograph y 11/05/2014 2:57 PM CDT Narrative 11/05/2014 5:14 PM CDT IBAN DUARTE M.D. GERARDO ELISE PA-C HO FINAL REPORT The radiology attending physician has personally reviewed this study, and has reviewed and/or edited this written report and agrees with it. ACC# ??Date Time ??Exam [id number] Nov 05, 2014 14:57:00 39831 Inj Sin/Abs,S&I [id number] Nov 05, 2014 14:57:00 42209 Inj Abscess Cat [id number] Nov 05, 2014 14:57:00 36633 Abscess TubeChg [id number] Nov 05, 2014 14:57:00 95040 Venancio Schaeffer ,S&I L [id number] Nov 05, 2014 14:57:00 43825 Sinus TR Inj TX ACC# ??Date Time ??Exam [id number] Nov 05, 2014 14:57:00 90351 Inj Sin/Abs,S&I [id number] Nov 05, 2014 14:57:00 22233 Inj Abscess Cat [id number] Nov 05, 2014 14:57:00 08087 Abscess TubeChg [id number] Nov 05, 2014 14:57:00 69262 Venancio Schaeffer ,S&I L [id number] Nov 05, 2014 14:57:00 83741 Sinus TR Inj TX EXAMINATION: ?DRAINAGE CATHETER EVALUATION AND ??EXCHANGE HISTORY: 59-year-old female with history of left radical mastectomy and large normal fluid collection under the left surgical site she had a 12 Algerian Gerber loop placed the patient is gone from initially around 100 cc a day down to now between 40 and 50 per day. She does not flush the collection. ATTENDING PRESENCE: Dr. Duarte, the attending radiologist, was present from the beginning to the end of the procedure. SEDATION: The patient did not require conscious sedation for the procedure. TECHNIQUE: Prior to beginning the procedure, Maryneal Protocol was used to confirm the patient's identity and planned procedure. Fluoroscopy time has been recorded in the electronic medical record. Maximum sterile barriers including cap, mask, hand hygiene, sterile gloves, sterile gown, large sterile drape and 2% chlorhexidine for cutaneous antisepsis were used. After obtaining a rock climbing team member image the catheter was connected with dilute contrast and multiple diagnostic fluoroscopic spot images were obtained those images showed a stable collection with no evidence of fistulization to other areas in the underarm. Reduced in size from previous evaluation. There was evidence that the catheter was partially blocks the oversew exchange was indicated. The skin overlying the collection was sterilely prepped, draped and infiltrated with 1% buffered lidocaine. The catheter was then exchanged over a Melendez guidewire for a new 12 Algerian Gerber loop catheter. ??Limited contrast injection confirmed appropriate placement of the catheter. The catheter was secured in place with a Prolene stitch. ??The drain was injected with 10 cc of betadine which was allowed todwell for 15 min and was then connected to gravity drainage. ??A sterile dressing was applied. ESTIMATED BLOOD LOSS: Minimal DISCHARGED TO: Recovery and then to Home CONDITION: Stable FINDINGS: ??Images from the catheter injection demonstrate the cavity ??to be stable in size compared to previous visit. The catheter was draining clear to yellow fluid. Images from the catheter exchange show the catheter tip centered in the residual cavity. Sclerosis with betadine ?? IMPRESSION: ?? Stable collection no fistula. Catheter was exchanged to facilitate drainage and resolution. PLAN: Continue to monitor catheter output as well as the patient's clinical condition. The catheter should be flushed 5 cc twice a day. The patient will follow-up with us in ??2 weeks. If questions arise, please contact us by calling [phone]. ?? Requested By: Dictated By: ?? STEPH DURÁN ??on Nov 05 2014 ??3:57P This document has been electronically signed by: IBAN DUARTE M.D. on Nov 05 2014 ??5:14P [id number] Procedure Note Provider, MD Tyler - 08/12/2016 IBAN DUARTE M.D. STEPH DURÁN FINAL REPORT The radiology attending physician has personally reviewed this study, and has reviewed and/or edited this written report and agrees with it. ACC# Date Time Exam [id number] Nov 05, 2014 14:57:00 74077 Inj Sin/Abs,S&I [id number] Nov 05, 2014 14:57:00 36130 Inj Abscess Cat [id number] Nov 05, 2014 14:57:00 10747 Abscess TubeChg [id number] Nov 05, 2014 14:57:00 20924 Venancio Schaeffer Ch,S&I L [id number] Nov 05, 2014 14:57:00 01771 Sinus TR Inj TX ACC# Date Time Exam [id number] Nov 05, 2014 14:57:00 22852 Inj Sin/Abs,S&I [id number] Nov 05, 2014 14:57:00 99365 Inj Abscess Cat [id number] Nov 05, 2014 14:57:00 94690 Abscess Tubeg [id number] Nov 05, 2014 14:57:00 08464 Venancio Schaeffer ,S&I L [id number] Nov 05, 2014 14:57:00 04403 Sinus TR Inj TX EXAMINATION: DRAINAGE CATHETER EVALUATION AND EXCHANGE HISTORY: 59-year-old female with history of left radical mastectomy and large normal fluid collection under the left surgical site she had a 12 Algerian Gerber loop placed the patient is gone from initially around 100 cc a day down to now between 40 and 50 per day. She does not flush the collection. ATTENDING PRESENCE: Dr. Duarte, the attending radiologist, was present from the beginning to the end of the procedure. SEDATION: The patient did not require conscious sedation for the procedure. TECHNIQUE: Prior to beginning the procedure, Maryneal Protocol was used to confirm the patient's identity and planned procedure. Fluoroscopy time has been recorded in the electronic medical record. Maximum sterile barriers including cap, mask, hand hygiene, sterile gloves, sterile gown, large sterile drape and 2% chlorhexidine for cutaneous antisepsis were used. After obtaining a rock climbing team member image the catheter was connected with dilute contrast and multiple diagnostic fluoroscopic spot images were obtained those images showed a stable collection with no evidence of fistulization to other areas in the underarm. Reduced in size from previous evaluation. There was evidence that the catheter was partially blocks the oversew exchange was indicated. The skin overlying the collection was sterilely prepped, draped and infiltrated with 1% buffered lidocaine. The catheter was then exchanged over a Melendez guidewire for a new 12 Algerian Gerber loop catheter. Limited contrast injection confirmed appropriate placement of the catheter. The catheter was secured in place with a Prolene stitch. The drain was injected with 10 cc of betadine which was allowed todwell for 15 min and was then connected to gravity drainage. A sterile dressing was applied. ESTIMATED BLOOD LOSS: Minimal DISCHARGED TO: Recovery and then to Home CONDITION: Stable FINDINGS: Images from the catheter injection demonstrate the cavity to be stable in size compared to previous visit. The catheter was draining clear to yellow fluid. Images from the catheter exchange show the catheter tip centered in the residual cavity. Sclerosis with betadine IMPRESSION: Stable collection no fistula. Catheter was exchanged to facilitate drainage and resolution. PLAN: Continue to monitor catheter output as well as the patient's clinical condition. The catheter should be flushed 5 cc twice a day. The patient will follow-up with us in 2 weeks. If questions arise, please contact us by calling [phone]. Requested By: Dictated By: STEPH DURÁN on Nov 05 2014 3:57P This document has been electronically signed by: IBAN DUARTE M.D. on Nov 05 2014 5:14P [id number] us Historical Provider MD GARCIA IR PROCEDURES Final R esult * Inject Abscess Catheter (11/05/2014 2:57 PM CDT) Anatomical Region Laterality Modality Body N/A X-Ray Angiograph y 11/05/2014 2:57 PM CDT Narrative 11/05/2014 5:14 PM CDT IBAN DUARTE M.D. STEPH DURÁN FINAL REPORT The radiology attending physician has personally reviewed this study, and has reviewed and/or edited this written report and agrees with it. ACC# ??Date Time ??Exam [id number] Nov 05, 2014 14:57:00 85833 Inj Sin/Abs,S&I [id number] Nov 05, 2014 14:57:00 98364 Inj Abscess Cat [id number] Nov 05, 2014 14:57:00 21830 Abscess TubeChg [id number] Nov 05, 2014 14:57:00 71217 Venancio Schaeffer Ch,S&I L [id number] Nov 05, 2014 14:57:00 27440 Sinus TR Inj TX ACC# ??Date Time ??Exam [id number] Nov 05, 2014 14:57:00 77868 Inj Sin/Abs,S&I [id number] Nov 05, 2014 14:57:00 99048 Inj Abscess Cat [id number] Nov 05, 2014 14:57:00 95541 Abscess TubeChg [id number] Nov 05, 2014 14:57:00 40720 Venancio Cath Ch,S&I L [id number] Nov 05, 2014 14:57:00 91917 Sinus TR Inj TX EXAMINATION: ?DRAINAGE CATHETER EVALUATION AND ??EXCHANGE HISTORY: 59-year-old female with history of left radical mastectomy and large normal fluid collection under the left surgical site she had a 12 Algerian Gerber loop placed the patient is gone from initially around 100 cc a day down to now between 40 and 50 per day. She does not flush the collection. ATTENDING PRESENCE: Dr. Duarte, the attending radiologist, was present from the beginning to the end of the procedure. SEDATION: The patient did not require conscious sedation for the procedure. TECHNIQUE: Prior to beginning the procedure, Maryneal Protocol was used to confirm the patient's identity and planned procedure. Fluoroscopy time has been recorded in the electronic medical record. Maximum sterile barriers including cap, mask, hand hygiene, sterile gloves, sterile gown, large sterile drape and 2% chlorhexidine for cutaneous antisepsis were used. After obtaining a rock climbing team member image the catheter was connected with dilute contrast and multiple diagnostic fluoroscopic spot images were obtained those images showed a stable collection with no evidence of fistulization to other areas in the underarm. Reduced in size from previous evaluation. There was evidence that the catheter was partially blocks the oversew exchange was indicated. The skin overlying the collection was sterilely prepped, draped and infiltrated with 1% buffered lidocaine. The catheter was then exchanged over a Melendez guidewire for a new 12 [place]ian Gerber loop catheter. ??Limited contrast injection confirmed appropriate placement of the catheter. The catheter was secured in place with a Prolene stitch. ??The drain was injected with 10 cc of betadine which was allowed todwell for 15 min and was then connected to gravity drainage. ??A sterile dressing was applied. ESTIMATED BLOOD LOSS: Minimal DISCHARGED TO: Recovery and then to Home CONDITION: Stable FINDINGS: ??Images from the catheter injection demonstrate the cavity ??to be stable in size compared to previous visit. The catheter was draining clear to yellow fluid. Images from the catheter exchange show the catheter tip centered in the residual cavity. Sclerosis with betadine ?? IMPRESSION: ?? Stable collection no fistula. Catheter was exchanged to facilitate drainage and resolution. PLAN: Continue to monitor catheter output as well as the patient's clinical condition. The catheter should be flushed 5 cc twice a day. The patient will follow-up with us in ??2 weeks. If questions arise, please contact us by calling [phone]. ?? Requested By: Dictated By: ?? STEPH DURÁN ??on Nov 05 2014 ??3:57P This document has been electronically signed by: IBAN DUARTE M.D. on Nov 05 2014 ??5:14P [id number] Procedure Note Provider, MD Tyler - 08/12/2016 IBAN DUARTE M.D. STEPH DURÁN FINAL REPORT The radiology attending physician has personally reviewed this study, and has reviewed and/or edited this written report and agrees with it. ACC# Date Time Exam [id number] Nov 05, 2014 14:57:00 48329 Inj Sin/Abs,S&I [id number] Nov 05, 2014 14:57:00 39917 Inj Abscess Cat [id number] Nov 05, 2014 14:57:00 80835 Abscess TubeChg [id number] Nov 05, 2014 14:57:00 29279 Drn Cath Ch,S&I L [id number] Nov 05, 2014 14:57:00 57114 Sinus TR Inj TX ACC# Date Time Exam [id number] Nov 05, 2014 14:57:00 45539 Inj Sin/Abs,S&I [id number] Nov 05, 2014 14:57:00 96627 Inj Abscess Cat [id number] Nov 05, 2014 14:57:00 27101 Abscess TubeChg [id number] Nov 05, 2014 14:57:00 82392 Drn Cath Ch,S&I L [id number] Nov 05, 2014 14:57:00 79820 Sinus TR Inj TX EXAMINATION: DRAINAGE CATHETER EVALUATION AND EXCHANGE HISTORY: 59-year-old female with history of left radical mastectomy and large normal fluid collection under the left surgical site she had a 12 Algerian Gerber loop placed the patient is gone from initially around 100 cc a day down to now between 40 and 50 per day. She does not flush the collection. ATTENDING PRESENCE: Dr. Duarte, the attending radiologist, was present from the beginning to the end of the procedure. SEDATION: The patient did not require conscious sedation for the procedure. TECHNIQUE: Prior to beginning the procedure, Maryneal Protocol was used to confirm the patient's identity and planned procedure. Fluoroscopy time has been recorded in the electronic medical record. Maximum sterile barriers including cap, mask, hand hygiene, sterile gloves, sterile gown, large sterile drape and 2% chlorhexidine for cutaneous antisepsis were used. After obtaining a rock climbing team member image the catheter was connected with dilute contrast and multiple diagnostic fluoroscopic spot images were obtained those images showed a stable collection with no evidence of fistulization to other areas in the underarm. Reduced in size from previous evaluation. There was evidence that the catheter was partially blocks the oversew exchange was indicated. The skin overlying the collection was sterilely prepped, draped and infiltrated with 1% buffered lidocaine. The catheter was then exchanged over a Melendez guidewire for a new 12 Algerian Gerber loop catheter. Limited contrast injection confirmed appropriate placement of the catheter. The catheter was secured in place with a Prolene stitch. The drain was injected with 10 cc of betadine which was allowed todwell for 15 min and was then connected to gravity drainage. A sterile dressing was applied. ESTIMATED BLOOD LOSS: Minimal DISCHARGED TO: Recovery and then to Home CONDITION: Stable FINDINGS: Images from the catheter injection demonstrate the cavity to be stable in size compared to previous visit. The catheter was draining clear to yellow fluid. Images from the catheter exchange show the catheter tip centered in the residual cavity. Sclerosis with betadine IMPRESSION: Stable collection no fistula. Catheter was exchanged to facilitate drainage and resolution. PLAN: Continue to monitor catheter output as well as the patient's clinical condition. The catheter should be flushed 5 cc twice a day. The patient will follow-up with us in 2 weeks. If questions arise, please contact us by calling [phone]. Requested By: Dictated By: STEPH DURÁN on Nov 05 2014 3:57P This document has been electronically signed by: IBAN DUARTE M.D. on Nov 05 2014 5:14P [id number] us Historical Provider MD GARCIA IR PROCEDURES Final R esult * Fistulogram Abscess Sinus Tract (11/05/2014 2:57 PM CDT) Anatomical Region Laterality Modality Head and Neck N/A Radiographic Lizeth ging 11/05/2014 2:57 PM CDT Narrative 11/05/2014 5:14 PM CDT Avery CHACON PA-C HO FINAL REPORT The radiology attending physician has personally reviewed this study, and has reviewed and/or edited this written report and agrees with it. ACC# ??Date Time ??Exam [id number] Nov 05, 2014 14:57:00 07184 Inj Sin/Abs,S&I [id number] Nov 05, 2014 14:57:00 77172 Inj Abscess Cat [id number] Nov 05, 2014 14:57:00 55133 Abscess TubeChg [id number] Nov 05, 2014 14:57:00 67629 Drn Cath Ch,S&I L [id number] Nov 05, 2014 14:57:00 00300 Sinus TR Inj TX ACC# ??Date Time ??Exam [id number] Nov 05, 2014 14:57:00 54682 Inj Sin/Abs,S&I [id number] Nov 05, 2014 14:57:00 66602 Inj Abscess Cat [id number] Nov 05, 2014 14:57:00 26325 Abscess TubeChg [id number] Nov 05, 2014 14:57:00 95577 Venancio Cath Ch,S&I L [id number] Nov 05, 2014 14:57:00 10341 Sinus TR Inj TX EXAMINATION: ?DRAINAGE CATHETER EVALUATION AND ??EXCHANGE HISTORY: 59-year-old female with history of left radical mastectomy and large normal fluid collection under the left surgical site she had a 12 Algerian Gerber loop placed the patient is gone from initially around 100 cc a day down to now between 40 and 50 per day. She does not flush the collection. ATTENDING PRESENCE: Dr. Duarte, the attending radiologist, was present from the beginning to the end of the procedure. SEDATION: The patient did not require conscious sedation for the procedure. TECHNIQUE: Prior to beginning the procedure, Maryneal Protocol was used to confirm the patient's identity and planned procedure. Fluoroscopy time has been recorded in the electronic medical record. Maximum sterile barriers including cap, mask, hand hygiene, sterile gloves, sterile gown, large sterile drape and 2% chlorhexidine for cutaneous antisepsis were used. After obtaining a rock climbing team member image the catheter was connected with dilute contrast and multiple diagnostic fluoroscopic spot images were obtained those images showed a stable collection with no evidence of fistulization to other areas in the underarm. Reduced in size from previous evaluation. There was evidence that the catheter was partially blocks the oversew exchange was indicated. The skin overlying the collection was sterilely prepped, draped and infiltrated with 1% buffered lidocaine. The catheter was then exchanged over a Melendez guidewire for a new 12 [place]ian Gerber loop catheter. ??Limited contrast injection confirmed appropriate placement of the catheter. The catheter was secured in place with a Prolene stitch. ??The drain was injected with 10 cc of betadine which was allowed todwell for 15 min and was then connected to gravity drainage. ??A sterile dressing was applied. ESTIMATED BLOOD LOSS: Minimal DISCHARGED TO: Recovery and then to Home CONDITION: Stable FINDINGS: ??Images from the catheter injection demonstrate the cavity ??to be stable in size compared to previous visit. The catheter was draining clear to yellow fluid. Images from the catheter exchange show the catheter tip centered in the residual cavity. Sclerosis with betadine ?? IMPRESSION: ?? Stable collection no fistula. Catheter was exchanged to facilitate drainage and resolution. PLAN: Continue to monitor catheter output as well as the patient's clinical condition. The catheter should be flushed 5 cc twice a day. The patient will follow-up with us in ??2 weeks. If questions arise, please contact us by calling [phone]. ?? Requested By: Dictated By: ?? STEPH DURÁN ??on Nov 05 2014 ??3:57P This document has been electronically signed by: IBAN DUARTE M.D. on Nov 05 2014 ??5:14P [id number] Procedure Note Provider, MD Tyler - 08/12/2016 IBAN DUARTE M.D. STEPH DURÁN FINAL REPORT The radiology attending physician has personally reviewed this study, and has reviewed and/or edited this written report and agrees with it. ACC# Date Time Exam [id number] Nov 05, 2014 14:57:00 61345 Inj Sin/Abs,S&I [id number] Nov 05, 2014 14:57:00 04231 Inj Abscess Cat [id number] Nov 05, 2014 14:57:00 28157 Abscess TubeChg [id number] Nov 05, 2014 14:57:00 74212 Venancio Cath Ch,S&I L [id number] Nov 05, 2014 14:57:00 32560 Sinus TR Inj TX ACC# Date Time Exam [id number] Nov 05, 2014 14:57:00 06325 Inj Sin/Abs,S&I [id number] Nov 05, 2014 14:57:00 19471 Inj Abscess Cat [id number] Nov 05, 2014 14:57:00 91064 Abscess TubeChg [id number] Nov 05, 2014 14:57:00 62618 Venancio Schaeffer Ch,S&I L [id number] Nov 05, 2014 14:57:00 80225 Sinus TR Inj TX EXAMINATION: DRAINAGE CATHETER EVALUATION AND EXCHANGE HISTORY: 59-year-old female with history of left radical mastectomy and large normal fluid collection under the left surgical site she had a 12 Algerian Gerber loop placed the patient is gone from initially around 100 cc a day down to now between 40 and 50 per day. She does not flush the collection. ATTENDING PRESENCE: Dr. Duarte, the attending radiologist, was present from the beginning to the end of the procedure. SEDATION: The patient did not require conscious sedation for the procedure. TECHNIQUE: Prior to beginning the procedure, Maryneal Protocol was used to confirm the patient's identity and planned procedure. Fluoroscopy time has been recorded in the electronic medical record. Maximum sterile barriers including cap, mask, hand hygiene, sterile gloves, sterile gown, large sterile drape and 2% chlorhexidine for cutaneous antisepsis were used. After obtaining a rock climbing team member image the catheter was connected with dilute contrast and multiple diagnostic fluoroscopic spot images were obtained those images showed a stable collection with no evidence of fistulization to other areas in the underarm. Reduced in size from previous evaluation. There was evidence that the catheter was partially blocks the oversew exchange was indicated. The skin overlying the collection was sterilely prepped, draped and infiltrated with 1% buffered lidocaine. The catheter was then exchanged over a Melendez guidewire for a new 12 [place]ian Gerber loop catheter. Limited contrast injection confirmed appropriate placement of the catheter. The catheter was secured in place with a Prolene stitch. The drain was injected with 10 cc of betadine which was allowed todwell for 15 min and was then connected to gravity drainage. A sterile dressing was applied. ESTIMATED BLOOD LOSS: Minimal DISCHARGED TO: Recovery and then to Home CONDITION: Stable FINDINGS: Images from the catheter injection demonstrate the cavity to be stable in size compared to previous visit. The catheter was draining clear to yellow fluid. Images from the catheter exchange show the catheter tip centered in the residual cavity. Sclerosis with betadine IMPRESSION: Stable collection no fistula. Catheter was exchanged to facilitate drainage and resolution. PLAN: Continue to monitor catheter output as well as the patient's clinical condition. The catheter should be flushed 5 cc twice a day. The patient will follow-up with us in 2 weeks. If questions arise, please contact us by calling [phone]. Requested By: Dictated By: STEPH DURÁN on Nov 05 2014 3:57P This document has been electronically signed by: IBAN DUARTE M.D. on Nov 05 2014 5:14P [id number] us Historical Provider MD GARCIA IR PROCEDURES Final R esult * Change Tube Abscess (11/05/2014 2:57 PM CDT) Anatomical Region Laterality Modality Body N/A X-Ray Angiograph y 11/05/2014 2:57 PM CDT Narrative 11/05/2014 5:14 PM CDT Avery CHACON PA-C HO FINAL REPORT The radiology attending physician has personally reviewed this study, and has reviewed and/or edited this written report and agrees with it. ACC# ??Date Time ??Exam [id number] Nov 05, 2014 14:57:00 62507 Inj Sin/Abs,S&I [id number] Nov 05, 2014 14:57:00 81022 Inj Abscess Cat [id number] Nov 05, 2014 14:57:00 53233 Abscess TubeChg [id number] Nov 05, 2014 14:57:00 12824 Venancio Schaeffer Ch,S&I L [id number] Nov 05, 2014 14:57:00 01284 Sinus TR Inj TX ACC# ??Date Time ??Exam [id number] Nov 05, 2014 14:57:00 98281 Inj Sin/Abs,S&I [id number] Nov 05, 2014 14:57:00 06909 Inj Abscess Cat [id number] Nov 05, 2014 14:57:00 10060 Abscess TubeChg [id number] Nov 05, 2014 14:57:00 36772 Venancio Schaeffer Ch,S&I L [id number] Nov 05, 2014 14:57:00 15622 Sinus TR Inj TX EXAMINATION: ?DRAINAGE CATHETER EVALUATION AND ??EXCHANGE HISTORY: 59-year-old female with history of left radical mastectomy and large normal fluid collection under the left surgical site she had a 12 [place] Gerber loop placed the patient is gone from initially around 100 cc a day down to now between 40 and 50 per day. She does not flush the collection. ATTENDING PRESENCE: Dr. Duarte, the attending radiologist, was present from the beginning to the end of the procedure. SEDATION: The patient did not require conscious sedation for the procedure. TECHNIQUE: Prior to beginning the procedure, Maryneal Protocol was used to confirm the patient's identity and planned procedure. Fluoroscopy time has been recorded in the electronic medical record. Maximum sterile barriers including cap, mask, hand hygiene, sterile gloves, sterile gown, large sterile drape and 2% chlorhexidine for cutaneous antisepsis were used. After obtaining a rock climbing team member image the catheter was connected with dilute contrast and multiple diagnostic fluoroscopic spot images were obtained those images showed a stable collection with no evidence of fistulization to other areas in the underarm. Reduced in size from previous evaluation. There was evidence that the catheter was partially blocks the oversew exchange was indicated. The skin overlying the collection was sterilely prepped, draped and infiltrated with 1% buffered lidocaine. The catheter was then exchanged over a Melendez guidewire for a new 12 [place] Gerber loop catheter. ??Limited contrast injection confirmed appropriate placement of the catheter. The catheter was secured in place with a Prolene stitch. ??The drain was injected with 10 cc of betadine which was allowed todwell for 15 min and was then connected to gravity drainage. ??A sterile dressing was applied. ESTIMATED BLOOD LOSS: Minimal DISCHARGED TO: Recovery and then to Home CONDITION: Stable FINDINGS: ??Images from the catheter injection demonstrate the cavity ??to be stable in size compared to previous visit. The catheter was draining clear to yellow fluid. Images from the catheter exchange show the catheter tip centered in the residual cavity. Sclerosis with betadine ?? IMPRESSION: ?? Stable collection no fistula. Catheter was exchanged to facilitate drainage and resolution. PLAN: Continue to monitor catheter output as well as the patient's clinical condition. The catheter should be flushed 5 cc twice a day. The patient will follow-up with us in ??2 weeks. If questions arise, please contact us by calling [phone]. ?? Requested By: Dictated By: ?? STEPH DURÁN ??on Nov 05 2014 ??3:57P This document has been electronically signed by: IBAN DUARTE M.D. on Nov 05 2014 ??5:14P [id number] Procedure Note Provider, MD Tyler - 08/12/2016 IBAN DUARTE M.D. STEPH DURÁN FINAL REPORT The radiology attending physician has personally reviewed this study, and has reviewed and/or edited this written report and agrees with it. ACC# Date Time Exam [id number] Nov 05, 2014 14:57:00 15156 Inj Sin/Abs,S&I [id number] Nov 05, 2014 14:57:00 97463 Inj Abscess Cat [id number] Nov 05, 2014 14:57:00 61580 Abscess TubeChg [id number] Nov 05, 2014 14:57:00 68388 Drn Cath Ch,S&I L [id number] Nov 05, 2014 14:57:00 16910 Sinus TR Inj TX ACC# Date Time Exam [id number] Nov 05, 2014 14:57:00 53745 Inj Sin/Abs,S&I [id number] Nov 05, 2014 14:57:00 00757 Inj Abscess Cat [id number] Nov 05, 2014 14:57:00 39457 Abscess TubeChg [id number] Nov 05, 2014 14:57:00 98720 Venancio Cath Ch,S&I L [id number] Nov 05, 2014 14:57:00 47363 Sinus TR Inj TX EXAMINATION: DRAINAGE CATHETER EVALUATION AND EXCHANGE HISTORY: 59-year-old female with history of left radical mastectomy and large normal fluid collection under the left surgical site she had a 12 [place] Gerber loop placed the patient is gone from initially around 100 cc a day down to now between 40 and 50 per day. She does not flush the collection. ATTENDING PRESENCE: Dr. Duarte, the attending radiologist, was present from the beginning to the end of the procedure. SEDATION: The patient did not require conscious sedation for the procedure. TECHNIQUE: Prior to beginning the procedure, Maryneal Protocol was used to confirm the patient's identity and planned procedure. Fluoroscopy time has been recorded in the electronic medical record. Maximum sterile barriers including cap, mask, hand hygiene, sterile gloves, sterile gown, large sterile drape and 2% chlorhexidine for cutaneous antisepsis were used. After obtaining a rock climbing team member image the catheter was connected with dilute contrast and multiple diagnostic fluoroscopic spot images were obtained those images showed a stable collection with no evidence of fistulization to other areas in the underarm. Reduced in size from previous evaluation. There was evidence that the catheter was partially blocks the oversew exchange was indicated. The skin overlying the collection was sterilely prepped, draped and infiltrated with 1% buffered lidocaine. The catheter was then exchanged over a Melendez guidewire for a new 12 [place] Gerber loop catheter. Limited contrast injection confirmed appropriate placement of the catheter. The catheter was secured in place with a Prolene stitch. The drain was injected with 10 cc of betadine which was allowed todwell for 15 min and was then connected to gravity drainage. A sterile dressing was applied. ESTIMATED BLOOD LOSS: Minimal DISCHARGED TO: Recovery and then to Home CONDITION: Stable FINDINGS: Images from the catheter injection demonstrate the cavity to be stable in size compared to previous visit. The catheter was draining clear to yellow fluid. Images from the catheter exchange show the catheter tip centered in the residual cavity. Sclerosis with betadine IMPRESSION: Stable collection no fistula. Catheter was exchanged to facilitate drainage and resolution. PLAN: Continue to monitor catheter output as well as the patient's clinical condition. The catheter should be flushed 5 cc twice a day. The patient will follow-up with us in 2 weeks. If questions arise, please contact us by calling [phone]. Requested By: Dictated By: STEPH DURÁN on Nov 05 2014 3:57P This document has been electronically signed by: IBAN DUARTE M.D. on Nov 05 2014 5:14P [id number] us Historical Provider MD GARCIA IR PROCEDURES Final R esult * Change Drainage Catheter (11/05/2014 2:57 PM CDT) Anatomical Region Laterality Modality Body N/A X-Ray Angiograph y 11/05/2014 2:57 PM CDT Narrative 11/05/2014 5:14 PM CDT Avery CHACON PA-C HO FINAL REPORT The radiology attending physician has personally reviewed this study, and has reviewed and/or edited this written report and agrees with it. ACC# ??Date Time ??Exam [id number] Nov 05, 2014 14:57:00 09213 Inj Sin/Abs,S&I [id number] Nov 05, 2014 14:57:00 68989 Inj Abscess Cat [id number] Nov 05, 2014 14:57:00 47051 Abscess TubeChg [id number] Nov 05, 2014 14:57:00 48708 Venancio Cath Ch,S&I L [id number] Nov 05, 2014 14:57:00 96980 Sinus TR Inj TX ACC# ??Date Time ??Exam [id number] Nov 05, 2014 14:57:00 96092 Inj Sin/Abs,S&I [id number] Nov 05, 2014 14:57:00 29995 Inj Abscess Cat [id number] Nov 05, 2014 14:57:00 61596 Abscess TubeChg [id number] Nov 05, 2014 14:57:00 09607 Venancio Schaeffer Ch,S&I L [id number] Nov 05, 2014 14:57:00 60684 Sinus TR Inj TX EXAMINATION: ?DRAINAGE CATHETER EVALUATION AND ??EXCHANGE HISTORY: 59-year-old female with history of left radical mastectomy and large normal fluid collection under the left surgical site she had a 12 [place] Gerber loop placed the patient is gone from initially around 100 cc a day down to now between 40 and 50 per day. She does not flush the collection. ATTENDING PRESENCE: Dr. Duarte, the attending radiologist, was present from the beginning to the end of the procedure. SEDATION: The patient did not require conscious sedation for the procedure. TECHNIQUE: Prior to beginning the procedure, Maryneal Protocol was used to confirm the patient's identity and planned procedure. Fluoroscopy time has been recorded in the electronic medical record. Maximum sterile barriers including cap, mask, hand hygiene, sterile gloves, sterile gown, large sterile drape and 2% chlorhexidine for cutaneous antisepsis were used. After obtaining a rock climbing team member image the catheter was connected with dilute contrast and multiple diagnostic fluoroscopic spot images were obtained those images showed a stable collection with no evidence of fistulization to other areas in the underarm. Reduced in size from previous evaluation. There was evidence that the catheter was partially blocks the oversew exchange was indicated. The skin overlying the collection was sterilely prepped, draped and infiltrated with 1% buffered lidocaine. The catheter was then exchanged over a Melendez guidewire for a new 12 [place] Gerber loop catheter. ??Limited contrast injection confirmed appropriate placement of the catheter. The catheter was secured in place with a Prolene stitch. ??The drain was injected with 10 cc of betadine which was allowed todwell for 15 min and was then connected to gravity drainage. ??A sterile dressing was applied. ESTIMATED BLOOD LOSS: Minimal DISCHARGED TO: Recovery and then to Home CONDITION: Stable FINDINGS: ??Images from the catheter injection demonstrate the cavity ??to be stable in size compared to previous visit. The catheter was draining clear to yellow fluid. Images from the catheter exchange show the catheter tip centered in the residual cavity. Sclerosis with betadine ?? IMPRESSION: ?? Stable collection no fistula. Catheter was exchanged to facilitate drainage and resolution. PLAN: Continue to monitor catheter output as well as the patient's clinical condition. The catheter should be flushed 5 cc twice a day. The patient will follow-up with us in ??2 weeks. If questions arise, please contact us by calling [phone]. ?? Requested By: Dictated By: ?? STEPH DURÁN ??on Nov 05 2014 ??3:57P This document has been electronically signed by: IBAN DUARTE M.D. on Nov 05 2014 ??5:14P [id number] Procedure Note Provider, MD Tyler - 08/12/2016 IBAN DUARTE M.D. STEPH DURÁN FINAL REPORT The radiology attending physician has personally reviewed this study, and has reviewed and/or edited this written report and agrees with it. ACC# Date Time Exam [id number] Nov 05, 2014 14:57:00 21050 Inj Sin/Abs,S&I [id number] Nov 05, 2014 14:57:00 91249 Inj Abscess Cat [id number] Nov 05, 2014 14:57:00 20134 Abscess TubeChg [id number] Nov 05, 2014 14:57:00 47212 Drn Cath Ch,S&I L [id number] Nov 05, 2014 14:57:00 14282 Sinus TR Inj TX ACC# Date Time Exam [id number] Nov 05, 2014 14:57:00 16771 Inj Sin/Abs,S&I [id number] Nov 05, 2014 14:57:00 40163 Inj Abscess Cat [id number] Nov 05, 2014 14:57:00 24768 Abscess TubeChg [id number] Nov 05, 2014 14:57:00 14999 Venancio Cath Ch,S&I L [id number] Nov 05, 2014 14:57:00 15080 Sinus TR Inj TX EXAMINATION: DRAINAGE CATHETER EVALUATION AND EXCHANGE HISTORY: 59-year-old female with history of left radical mastectomy and large normal fluid collection under the left surgical site she had a 12 [place] Gerber loop placed the patient is gone from initially around 100 cc a day down to now between 40 and 50 per day. She does not flush the collection. ATTENDING PRESENCE: Dr. Duarte, the attending radiologist, was present from the beginning to the end of the procedure. SEDATION: The patient did not require conscious sedation for the procedure. TECHNIQUE: Prior to beginning the procedure, Maryneal Protocol was used to confirm the patient's identity and planned procedure. Fluoroscopy time has been recorded in the electronic medical record. Maximum sterile barriers including cap, mask, hand hygiene, sterile gloves, sterile gown, large sterile drape and 2% chlorhexidine for cutaneous antisepsis were used. After obtaining a rock climbing team member image the catheter was connected with dilute contrast and multiple diagnostic fluoroscopic spot images were obtained those images showed a stable collection with no evidence of fistulization to other areas in the underarm. Reduced in size from previous evaluation. There was evidence that the catheter was partially blocks the oversew exchange was indicated. The skin overlying the collection was sterilely prepped, draped and infiltrated with 1% buffered lidocaine. The catheter was then exchanged over a Melendez guidewire for a new 12 [place] Gerber loop catheter. Limited contrast injection confirmed appropriate placement of the catheter. The catheter was secured in place with a Prolene stitch. The drain was injected with 10 cc of betadine which was allowed todwell for 15 min and was then connected to gravity drainage. A sterile dressing was applied. ESTIMATED BLOOD LOSS: Minimal DISCHARGED TO: Recovery and then to Home CONDITION: Stable FINDINGS: Images from the catheter injection demonstrate the cavity to be stable in size compared to previous visit. The catheter was draining clear to yellow fluid. Images from the catheter exchange show the catheter tip centered in the residual cavity. Sclerosis with betadine IMPRESSION: Stable collection no fistula. Catheter was exchanged to facilitate drainage and resolution. PLAN: Continue to monitor catheter output as well as the patient's clinical condition. The catheter should be flushed 5 cc twice a day. The patient will follow-up with us in 2 weeks. If questions arise, please contact us by calling [phone]. Requested By: Dictated By: STEPH DURÁN on Nov 05 2014 3:57P This document has been electronically signed by: IBAN DUARTE M.D. on Nov 05 2014 5:14P [id number] us Historical Provider MD GARCIA IR PROCEDURES Final R esult documented in this encounter Visit Diagnoses Diagnosis Encounter for fitting and adjustment of non-vascular catheter NEC documented in this encounter Care Teams Rural [employer] Relationship Specialty Start Date End Date Antoinette Zhu MD [address] [address] PCP - General 08/01/13 07/26/16 documented as of this encounter
--- OUTSIDE RECORDS SUMMARY | 2024-04-26 04:33 | XMS_ITS | Encounter Summary ---
Author Organization [facility] Facility Care Team Providers Care Business Services Vice President Name Role Phone Antoinette Zhu MD Primary Care Provider [phone] Encounter Details Date Type Department Care Team (Latest Contact Info) Description 12/08/2014 5:31 AM CDT - 12/11/2014 2:39 PM [facility] Hospital Encounter [facility] Local infection due to central venous catheter; Cellulitis and abscess of upper arm and forearm; Malignant neoplasm of breast (female) ([facility]); Adult body mass index 50.0-59.9 ([facility]/HCC); Type 2 or unspecified type diabetes mellitus; Hypothyroidism; Restless legs syndrome; Essential hypertension; Obstructive sleep apnea; Weight loss; Obesity; Anxiety state; Personal history of tobacco use, presenting hazards to health; Personal history of methicillin resistant Staphylococcus aureus; Other specified procedure as the cause of abnormal reaction of patient or of later complication; Place of occurrence, home Social History Tobacco Use Types Packs/Day Years Used Date Smoking Tobacco: Former Alcohol Use Standard Drinks/Week Comments No 0 (1 standard drink = 0.6 oz pur e alcohol) Comments Unknown Sex and Gender Information Value Date Recorded Sex Assigned at Not on file 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 Gender Identity Not on file Sexual Orientation Not on file documented as of this encounter Last Filed Vital Signs Vital Sign Reading Time Taken Comments Blood Pressure 150/62 12/11/2014 12:37 PM CDT Pulse 88 12/11/2014 12:37 PM CDT Temperature - - Respiratory Rate - - Oxygen Saturation 99% 12/11/2014 12: 37 PM CDT Inhaled Oxygen Concentration - - Weight 120.2 kg (264 lb 15.9 oz) 12/08/2014 6:02 AM CDT Height 154.9 cm (5' 1 ) 12/08/2014 6:02 AM CDT Body Mass Index 50.07 12/08/2014 6:02 AM CDT documented in this encounter Medications [...] Associated Diagnosis Comments DISCHARGE LABORATORY CUMULATIVE REPORT 12/11/2014 SERUM VANCOMYCIN, TROUGH DRUG LEVEL Routine 12/10/2014 12:56 PM CDT BLOOD CELL COUNT (CBC) Routine 5 11:36 PM CDT BLOOD GLUCOSE, POC Routine 12/09/2014 4: 18 PM CDT BLOOD GLUCOSE, POC Routine 12/09/2014 12 :20 PM CDT BLOOD GLUCOSE, POC Routine 12/09/2014 7 :38 AM CDT PLASMA PROTHROMBIN TIME (PT) Routine 12/09/2014 12:03 AM CDT PLASMA PARTIAL THROMBOPLASTIN TIME (PTT) Routine 12/09/2014 12:03 AM CDT PLASMA BASIC METABOLIC PANEL Routine 12/09/2014 12:03 AM CDT BLOOD ERYTHROCYTE SEDIMENTATION RATE (ESR) Routine 12/09/2014 12:03 AM CDT BLOOD GLUCOSE, POC Routine 12/08/2014 9: 30 PM CDT BLOOD GLUCOSE, POC Routine 12/08/2014 5: 13 PM CDT US EXTREMITY COMPLETE Routine 12/08/2014 2:22 PM CDT BLOOD GLUCOSE, POC Routine 12/08/2014 5: 22 AM CDT BLOOD GLUCOSE, POC Routine 12/08/2014 3: 04 AM CDT VASCULAR LABORATORY REPORT 12/08/2014 CHEST RADIOGRAPHY, FRONTAL (AP), LATERAL Routine 12/07/2014 11:20 PM CDT SERUM CREATINE KINASE (CK) Routine 12/07/2014 10:51 PM CDT PLASMA BASIC METABOLIC PANEL Routine 12/07/2014 10:51 PM CDT BLOOD CELL COUNT (CBC) Routine 5 10:51 PM CDT BLOOD GLUCOSE, POC Routine 12/07/2014 10 :46 PM CDT BLOOD GLUCOSE, POC Routine 12/07/2014 9: 33 PM CDT documented in this encounter Results * DISCHARGE LABORATORY CUMULATIVE REPORT (12/11/2014) Narrative 12/11/2014 Ordered by an unspecified provider. Historical Provider LAB BLOOD ORDERABLES Deann l Result * Serum vancomycin, trough drug level (12/10/2014 12:56 PM CDT) Vancomycin, trough 12.3 10.0 - 20.9 mcg/ml HISTORICAL RESULTS Comment: Interpretive Data Therapeutic Range: ?? Uncomplicated skin and soft tissue infections: 10-20 mcg/mL ?? All other infections: ??15-20 mcg/mL Current interpretive data was last revised on 12. Serum 12/10/2014 12:5 6 PM CDT Deon Bright MD LAB BLOOD ORDERABLES Final Result HISTORICAL RESULTS * (ABNORMAL) Blood cell count (CBC) (12/09/2014 11:36 PM CDT) WBC 8.7 3.8 - 9.8 K/cumm HISTORICAL RESULTS RBC 3.73(L) 3.90 - 5.00 M/cumm HISTORICAL RESULTS Hgb 10.3(L) 12.1 - 15.1 g/dl HISTORICAL RESULTS Hct 32.0(L) 36.1 - 44.3 % HISTORICAL RESULTS MCV 85.7 80.0 - 97.6 fl HISTORICAL RESULTS MCH 27.6 26.7 - 33.7 pg HISTORICAL RESULTS MCHC 32.2(L) 32.7 - 35.5 g/dl HISTORICAL RESULTS Rdw 13.9 11.8 - 14.6 % HISTORICAL RESULTS Platelets 307 140 - 440 K/cumm HISTORICAL RESULTS MPV 8.0 6.8 - 10.4 fl HISTORICAL RESULTS Neutrophils 59.3 38.7 - 74.5 % HISTORICAL RESULTS Lymphocytes 25.1 20.0 - 54.3 % HISTORICAL RESULTS Monos 8.1 4.3 - 13.5 % HISTORICAL RESULTS Eosinophils 7.1(H) 0.0 - 6.0 % HISTORICAL RESULTS Basophils 0.4 0.0 - 3.0 % HISTORICAL RESULTS Neutrophils, abs 5.2 1.8 - 6.6 K/cumm HISTORICAL RESULTS Lymphocytes, abs 2.2 1.2 - 3.3 K/cumm HISTORICAL RESULTS Monocytes, absolute 0.7 0.2 - 1.2 K/cumm HISTORICAL RESULTS Eosinophils, abs 0.6(H) 0.0 - 0.5 K/cumm HISTORICAL RESULTS Basophils, abs 0.0 0.0 - 0.2 K/cumm HISTORICAL RESULTS Blood specimen (specimen) 12/09/2014 11:36 PM CDT Deon Bright MD LAB BLOOD ORDERABLES Final Result Performing Organization Address [facility] de Phone Number HISTORICAL RESULTS * Blood glucose, POC (12/09/2014 4:18 PM CDT) Glucose, POC, bld 146 70 - 199 mg/dl HISTORICAL RESULTS Blood specimen (specimen) 12/09/2014 4:18 PM CDT Roseanne Baron MD LAB BLOOD ORDERA BLES Final Result Performing Organization Address [facility] Co de Phone Number HISTORICAL RESULTS * Blood glucose, POC (12/09/2014 12:20 PM CDT) Glucose, POC, bld 139 70 - 199 mg/dl HISTORICAL RESULTS Blood specimen (specimen) 12/09/2014 12:20 PM CDT Roseanne Baron MD LAB BLOOD ORDERA BLES Final Result Performing Organization Address [facility] Co de Phone Number HISTORICAL RESULTS * Blood glucose, POC (12/09/2014 7:38 AM CDT) Glucose, POC, bld 115 70 - 199 mg/dl HISTORICAL RESULTS Blood specimen (specimen) 12/09/2014 7:38 AM CDT Roseanne Baron MD LAB BLOOD ORDERA BLES Final Result Performing Organization Address [facility] de Phone Number HISTORICAL RESULTS * Plasma basic metabolic panel (12/09/2014 12:03 AM CDT) Sodium 136 135 - 145 mmol/L HISTORICAL RESULTS K, pl 4.1 3.3 - 4.9 mmol/L HISTORICAL RESULTS Chloride 102 97 - 110 mmol/L HISTORICAL RESULTS CO2 25 22 - 32 mmol/L HISTORICAL RESULTS A. gap 9 0 - 16 mmol/L HISTORICAL RESULTS Glucose 143 70 - 199 mg/dl HISTORICAL RESULTS BUN 19 8 - 25 mg/dl HISTORICAL RESULTS Creatinine 0.73 0.60 - 1.10 mg/dl HISTORICAL RESULTS Calcium 9.2 8.6 - 10.3 mg/dl HISTORICAL RESULTS Plasma 12/09/2014 12:0 3 AM CDT Jam Colbert MD LAB BLOOD ORDERABLES Final Resul t Performing Organization Address [facility] de Phone Number HISTORICAL RESULTS * Plasma partial thromboplastin time (PTT) (12/09/2014 12:03 AM CDT) APTT 33.1 25.0 - 37.0 seconds HISTORICAL RESULTS Comment: Interpretive Data Therapeutic heparin range:60.0 - 94.0 sec based on correlation with therapeutic heparin activity range of 0.3 -0.7 Units/mL. Current interpretive data was last revised on 2011. Plasma 12/09/2014 12:0 3 AM CDT Jam Colbert MD LAB BLOOD ORDERABLES Final Resul t Performing Organization Address [facility] de Phone Number HISTORICAL RESULTS * Plasma prothrombin time (PT) (12/09/2014 12:03 AM CDT) Prothrombin time (PT) 12.4 9.2 - 13.0 seconds HISTORICAL RESULTS INR 1.15 0.90 - 1.20 HISTORIC AL RESULTS Comment: [...] the Tool Book at [email or web address].nsf Current Interpretive Data was last revised 2011. Plasma 12/09/2014 12:0 3 AM CDT Jam Colbert MD LAB BLOOD ORDERABLES Final Resul t Performing Organization Address [facility] de Phone Number HISTORICAL RESULTS * (ABNORMAL) Blood erythrocyte sedimentation rate (ESR) (12/09/2014 12:03 AM CDT) Erythrocyte sedimentation rate 49.0(H) 0.0 - 35.0 mm/hr HISTORICAL RESULTS Blood specimen (specimen) 12/09/2014 12:03 AM CDT Jam Colbert MD LAB BLOOD ORDERABLES Final Resul t Performing Organization Address [facility] de Phone Number HISTORICAL RESULTS * Blood glucose, POC (12/08/2014 9:30 PM CDT) Glucose, POC, bld 110 70 - 199 mg/dl HISTORICAL RESULTS Blood specimen (specimen) 12/08/2014 9:30 PM CDT Roseanne Baron MD LAB BLOOD ORDERA BLES Final Result Performing Organization Address [facility] de Phone Number HISTORICAL RESULTS * Blood glucose, POC (12/08/2014 5:13 PM CDT) Glucose, POC, bld 157 70 - 199 mg/dl HISTORICAL RESULTS Blood specimen (specimen) 12/08/2014 5:13 PM CDT Roseanne Baron MD LAB BLOOD ORDERA BLES Final Result HISTORICAL RESULTS * US Extremity Complete (12/08/2014 2:22 PM CDT) Anatomical Region Laterality Modality Extremity N/A Ultrasound 12/08/2014 2:22 PM CDT Narrative 12/08/2014 6:40 PM CDT FATUMA ESPINOSA M.D. ONDINA LUNDY M.D. FINAL REPORT The radiology attending physician has personally reviewed this study, and has reviewed and/or edited this written report and agrees with it. ACC# ??Date Time ??Exam [id number] Dec 08, 2014 14:22:00 [id number] Extremity Sono Limited R ACC# ??Date Time ??Exam [id number] Dec 08, 2014 14:22:00 [id number] Extremity Sono Limited R EXAMINATION: ?Right extremity sonogram limited HISTORY: ??59-year-old woman with breast cancer status post recent peripherally inserted central venous catheter placement and now presenting with increasing right upper extremity swelling and pain. FINDINGS: ?? No prior studies are available for comparison. Focused ultrasound examination of the right upper arm was performed. Peripherally inserted central venous catheter is seen transversing the subcutaneous soft tissues with its tip within the right upper extremity vein. As no loculated fluid collection to suggest an abscess. The visualized portion of the vein is patent. ?? IMPRESSION: 1. ??No drainable loculated fluid collection to suggest an abscess. ?? Requested By: Dictated By: ?? ONDINA LUNDY M.D. ??on Dec 08 2014 ??2:35P This document has been electronically signed by: FATUMA ESPINOSA M.D. on Dec 08 2014 ??6:40P Procedure Note Provider, MD Tyler - 08/12/2016 FATUMA ESPINOSA M.D. ONDINA LUNDY M.D. FINAL REPORT The radiology attending physician has personally reviewed this study, and has reviewed and/or edited this written report and agrees with it. ACC# Date Time Exam [id number] Dec 08, 2014 14:22:00 [id number] Extremity Sono Limited R ACC# Date Time Exam [id number] Dec 08, 2014 14:22:00 [id number] Extremity Sono Limited R EXAMINATION: Right extremity sonogram limited HISTORY: 59-year-old woman with breast cancer status post recent peripherally inserted central venous catheter placement and now presenting with increasing right upper extremity swelling and pain. FINDINGS: No prior studies are available for comparison. Focused ultrasound examination of the right upper arm was performed. Peripherally inserted central venous catheter is seen transversing the subcutaneous soft tissues with its tip within the right upper extremity vein. As no loculated fluid collection to suggest an abscess. The visualized portion of the vein is patent. IMPRESSION: 1. No drainable loculated fluid collection to suggest an abscess. Requested By: Dictated By: ONDINA LUNDY M.D. on Dec 08 2014 2:35P This document has been electronically signed by: FATUMA ESPINOSA M.D. on Dec 08 2014 6:40P us Historical Provider G PROCEDURES Final R esult * Blood glucose, POC (12/08/2014 5:22 AM CDT) Glucose, POC, bld 122 70 - 199 mg/dl HISTORICAL RESULTS Blood specimen (specimen) 12/08/2014 5:22 AM CDT Roseanne Baron MD LAB BLOOD ORDERA BLES Final Result HISTORICAL RESULTS * Blood glucose, POC (12/08/2014 3:04 AM CDT) Glucose, POC, bld 127 70 - 199 mg/dl HISTORICAL RESULTS Blood specimen (specimen) 12/08/2014 3:04 AM CDT us Robert Poole MD PhD LAB BLOOD ORDERABLE S Final Result HISTORICAL RESULTS * VASCULAR LABORATORY REPORT (12/08/2014) Anatomical Region Laterality Modality Ultrasound Narrative 12/08/2014 Ordered by an unspecified provider. Historical Provider CV VASCULAR PROCEDURES Fi nal Result * CHEST RADIOGRAPHY, FRONTAL (AP), LATERAL (12/07/2014 11:20 PM CDT) Anatomical Region Laterality Modality N/A Radiographic Lizeth ging 12/07/2014 11:2 0 PM CDT Narrative 12/08/2014 11:11 AM CDT YESSY TORRES M.D. MARIELA BAE M.D. FINAL REPORT The radiology attending physician has personally reviewed this study, and has reviewed and/or edited this written report and agrees with it. ACC# ??Date Time ??Exam [id number] Dec 07, 2014 23:20:00 [id number] Chest 2 views Frontl & Lat EXAMINATION: ?? Chest 2 views HISTORY: ??PICC placement IMPRESSION: ?? Two view examination of the chest is submitted with comparison dated 11/23/2014. A right upper extremity PICC line tip terminates at the superior cavoatrial junction. A right pigtail catheter overlying the right breast is again seen. Small lung volumes with associated mild bibasilar atelectasis is present. No pneumothorax, pleural effusion, or focal consolidation. The cardiomediastinal contours are within normal limits. Requested By: ROBERT POOLE M.D. Dictated By: ?? MARIELA BAE M.D. ??on Dec 07 2014 11:25P This document has been electronically signed by: YESSY TORRES M.D. on Dec 08 2014 11:11A [id number] Procedure Note Provider, MD Tyler - 08/12/2016 YESSY TORRES M.D. MARIELA BAE M.D. FINAL REPORT The radiology attending physician has personally reviewed this study, and has reviewed and/or edited this written report and agrees with it. ACC# Date Time Exam [id number] Dec 07, 2014 23:20:00 [id number] Chest 2 views Frontl & Lat EXAMINATION: Chest 2 views HISTORY: PICC placement IMPRESSION: Two view examination of the chest is submitted with comparison dated 11/23/2014. A right upper extremity PICC line tip terminates at the superior cavoatrial junction. A right pigtail catheter overlying the right breast is again seen. Small lung volumes with associated mild bibasilar atelectasis is present. No pneumothorax, pleural effusion, or focal consolidation. The cardiomediastinal contours are within normal limits. Requested By: ROBERT POOLE M.D. Dictated By: MARIELA BAE M.D. on Dec 07 2014 11:25P This document has been electronically signed by: YESSY TORRES M.D. on Dec 08 2014 11:11A [id number] Historical Provider IMG XR PROCEDURES Final R esult * Serum creatine kinase (CK) (12/07/2014 10:51 PM CDT) Pathologist [facility] CK 100 20 - 170 Units/L HISTORICAL RESULTS Serum 12/07/2014 10:5 1 PM CDT Robert Poole MD PhD LAB BLOOD ORDERABLE S Final Result Performing Organization Address City/State/[facility] Co de Phone Number HISTORICAL RESULTS * Plasma basic metabolic panel (12/07/2014 10:51 PM CDT) Pathologist [facility] Sodium 137 135 - 145 mmol/L HISTORICAL RESULTS K, pl 4.3 3.3 - 4.9 mmol/L HISTORICAL RESULTS Chloride 103 97 - 110 mmol/L HISTORICAL RESULTS CO2 23 22 - 32 mmol/L HISTORICAL RESULTS A. gap 11 0 - 16 mmol/L HISTORICAL RESULTS Glucose 123 70 - 199 mg/dl HISTORICAL RESULTS Creatinine 0.83 0.60 - 1.10 mg/dl HISTORICAL RESULTS Calcium 9.2 8.6 - 10.3 mg/dl HISTORICAL RESULTS BUN 21 8 - 25 mg/dl HISTORICAL RESULTS Plasma 12/07/2014 10:5 1 PM CDT Robert Poole MD PhD LAB BLOOD ORDERABLE S Final Result HISTORICAL RESULTS * (ABNORMAL) Blood cell count (CBC) (12/07/2014 10:51 PM CDT) WBC 11.4(H) 3.8 - 9.8 K/cumm HISTORICAL RESULTS RBC 3.98 3.90 - 5.00 M/cumm HISTORICAL RESULTS Hgb 11.0(L) 12.1 - 15.1 g/dl HISTORICAL RESULTS Hct 33.8(L) 36.1 - 44.3 % HISTORICAL RESULTS MCV 85.1 80.0 - 97.6 fl HISTORICAL RESULTS MCH 27.6 26.7 - 33.7 pg HISTORICAL RESULTS MCHC 32.4(L) 32.7 - 35.5 g/dl HISTORICAL RESULTS Rdw 14.0 11.8 - 14.6 % HISTORICAL RESULTS Platelets 270 140 - 440 K/cumm HISTORICAL RESULTS MPV 7.6 6.8 - 10.4 fl HISTORICAL RESULTS Neutrophils 63.9 38.7 - 74.5 % HISTORICAL RESULTS Lymphocytes 24.5 20.0 - 54.3 % HISTORICAL RESULTS Monos 6.0 4.3 - 13.5 % HISTORICAL RESULTS Eosinophils 4.7 0.0 - 6.0 % HISTORICAL RESULTS Basophils 0.9 0.0 - 3.0 % HISTORICAL RESULTS Neutrophils, abs 7.3(H) 1.8 - 6.6 K/cumm HISTORICAL RESULTS Lymphocytes, abs 2.8 1.2 - 3.3 K/cumm HISTORICAL RESULTS Monocytes, absolute 0.7 0.2 - 1.2 K/cumm HISTORICAL RESULTS Eosinophils, abs 0.5 0.0 - 0.5 K/cumm HISTORICAL RESULTS Basophils, abs 0.1 0.0 - 0.2 K/cumm HISTORICAL RESULTS Blood specimen (specimen) 12/07/2014 10:51 PM CDT us Robert Poole MD PhD LAB BLOOD ORDERABLE S Final Result HISTORICAL RESULTS * Blood glucose, POC (12/07/2014 10:46 PM CDT) Glucose, POC, bld 115 70 - 199 mg/dl HISTORICAL RESULTS Blood specimen (specimen) 12/07/2014 10:46 PM CDT Historical Provider LAB BLOOD ORDERABLES Deann l Result HISTORICAL RESULTS * Blood glucose, POC (12/07/2014 9:33 PM CDT) Glucose, POC, bld 118 70 - 199 mg/dl HISTORICAL RESULTS Blood specimen (specimen) 12/07/2014 9:33 PM CDT Historical Provider LAB BLOOD ORDERABLES Deann l Result Performing Organization Address City/[facility] Co de Phone Number HISTORICAL RESULTS documented in this encounter Visit Diagnoses Diagnosis Local infection due to central venous catheter Cellulitis and abscess of upper arm and forearm Malignant neoplasm of breast (female) (HCC) Malignant neoplasm of breast (female), unspecified site Adult body mass index 50.0-59.9 (HCC) Type 2 or unspecified type diabetes mellitus Hypothyroidism Unspecified hypothyroidism Restless legs syndrome Restless legs syndrome (RLS) Essential hypertension Unspecified essential hypertension Obstructive sleep apnea Obstructive sleep apnea (adult) (pediatric) Weight loss Loss of weight Obesity Obesity, unspecified Anxiety state Anxiety state, unspecified Personal history of tobacco use, presenting hazards to health Personal history of methicillin resistant Staphylococcus aureus Personal history of Methicillin resistant Staphylococcus aureus Other specified procedure as the cause of abnormal reaction of patient or of later complication Place of occurrence, home documented in this encounter Care Teams Business Services Vice President Relationship Specialty Start Date End Date Antoinette Zhu MD [address] [address] PCP - General 08/01/13 07/26/16 documented as of this encounter
--- OUTSIDE RECORDS SUMMARY | 2024-04-26 04:33 | XMS_ITS | Encounter Summary ---
Author Organization [facility] Facility Care Team Providers Care Office Services Manager Name Role Phone Antoinette Zhu MD Primary Care Provider [phone] Encounter Details Date Type Department Care Team (Latest Contact Info) Description 10/21/2014 7:33 AM CDT - 10/21/2014 4:00 PM T Hospital Encounter [facility] Aft, Farzaneh Bell MD PhD [address] [place] [address] Malignant neoplasm of other specified sites of female breast (CMS/HCC); Type 2 or unspecified type diabetes mellitus; Essential hypertension; Disorder of thyroid; Restless legs syndrome; Anxiety state; Family history of malignant neoplasm of breast; Family history of malignant neoplasm of gastrointestinal tract; Family history of malignant neoplasm of prostate Social History Tobacco Use Types Packs/Day Years Used Date Smoking Tobacco: Former Alcohol Use Standard Drinks/Week Comments No 0 (1 standard drink = 0.6 oz pur e alcohol) Comments Unknown Sex and Gender Information Value Date Recorded Sex Assigned at Not on file 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 Gender Identity Not on file Sexual Orientation Not on file documented as of this encounter Last Filed Vital Signs Vital Sign Reading Time Taken Comments Blood Pressure - - Pulse - - Temperature - - Respiratory Rate - - Oxygen Saturation - - Inhaled Oxygen Concentration - - Weight - - Height 157.5 cm (5' 2 ) 09/23/2014 6:16 PM CDT Body Mass Index - - [...] Op Note - Provider, MD Tyler - 10/21/2014 12:00 AM CDT Patient: Karly Marques Reg No: [id number] [facility] #: [id number] Admit Dt.: 10/21/2014 : 1955 Pt Type: 200 Room No: OR Attending: Farzaneh Ramey MD, PHD Surgeon: Farzaneh Ramey MD, PHD Dictating: Farzaneh Ramey MD, PHD Service Dt: 10/21/2014 OPERATIVE REPORT ANESTHESIA: General. PREOPERATIVE DIAGNOSIS (ES): Left breast cancer. POSTOPERATIVE DIAGNOSIS (ES): Left breast cancer. NAME OF OPERATION: Placement of right internal jugular port-a-cath using ultrasound guidance and two bone marrow aspirations for a clinical trial. INDICATIONS FOR PROCEDURE: The patient is an approximately 56 year-old female who was diagnosed with a left breast cancer. She was to undergo chemotherapy and was taken to the operating room for the above procedure. She received 2 grams of cefazolin and had ThromboGuards placed. DESCRIPTION OF PROCEDURE: After informed consent was obtained, the patient was taken to the operating room and placed in the supine position. After adequate general anesthesia and endotracheal intubation, the patient's left neck, abdomen and chest were prepped and draped in the standard sterile manner. The right internal jugular vein was located with an ultrasound and accessed with a wide-bore needle. A wire was passed. Confirmation of placement of the wire in the right heart was obtained with fluoroscopy. Next, a port site was made approximately two finger breaths below the clavicle and the port was anchored in the pocket with PDS suture. The catheter was tunneled through the exit site of the wire. Sheath was placed over the wire and the wire dilator removed. The catheter was placed through the sheath and the sheath was removed. Confirmation of placement of the catheter to the superior vena cava by atrial was obtained with fluoroscopy. The port was found to flush and aspirate easily. The wound was irrigated with warm saline and checked for hemostasis. The wound was closed with interrupted 3-0 Dexon deep dermal sutures and a running 4-0 PDS subcuticular stitch. Dermabond was applied. Next, 20 milliliters of bone marrow was collected from each iliac crest. The patient tolerated all portions of the procedure well. She was extubated and taken to the recovery room in stable condition. CONDITION ON DISCHARGE FROM OPERATING ROOM: Stable. PRESENT STATEMENT: Please note that Dr. Ramey was present for the entire procedure. Electronically Signed By Farzaneh Ramey MD, PHD 11/05/2014 01:53 P Farzaneh Ramey MD, PHD RLA/veronica #[id number] Editing MT: [email or web address] TD: 10/23/2014 08:56:00 cc: Farzaneh Ramey MD, PHD documented in this encounter Plan of Treatment Not on file documented as of this encounter Procedures Procedure Name Priority Date/Time Associated Diagnosis Comments BLOOD GLUCOSE, POC Routine 10/21/2014 11 :52 AM CDT XR CHEST 1 VIEW Routine 10/21/2014 11:08 AM CDT BLOOD GLUCOSE, POC Routine 10/21/2014 8: 17 AM CDT DISCHARGE LABORATORY CUMULATIVE REPORT 10/21/2014 documented in this encounter Results * Blood glucose, POC (10/21/2014 11:52 AM CDT) Glucose, POC, bld 95 70 - 199 mg/dl HISTORICAL RESULTS Blood specimen (specimen) 10/21/2014 11:52 AM CDT us Farzaneh Ramey MD PhD LAB BLOOD ORDERABLES Final Result HISTORICAL RESULTS * XR Chest 1 View (10/21/2014 11:08 AM CDT) Anatomical Region Laterality Modality Body, Chest N/A Radiographic Lizeth ging 10/21/2014 11:0 8 AM CDT Narrative 10/21/2014 11:10 AM CDT CECELIA BETH M.D. FINAL REPORT ACC# ??Date Time ??Exam [id number] Oct 21, 2014 11:08:00 [id number] Chest 1 view Frontal EXAMINATION: ?SINGLE VIEW ANTEROPOSTERIOR CHEST IMPRESSION: ? No prior chest radiograph available for comparison. A port catheter seen with the tip overlying the superior vena cava. No pneumothorax. Mild base atelectasis noted. Heart size and the mediastinal contour are within normal limits. Requested By: Dictated By: ?? CECELIA BETH M.D. ??on Oct 21 2014 11:10A This document has been electronically signed by: CECELIA BETH M.D. on Oct 21 2014 11:10A [id number] Procedure Note Provider, MD Tyler - 08/12/2016 CECELIA BETH M.D. FINAL REPORT ACC# Date Time Exam [id number] Oct 21, 2014 11:08:00 [id number] Chest 1 view Frontal EXAMINATION: SINGLE VIEW ANTEROPOSTERIOR CHEST IMPRESSION: No prior chest radiograph available for comparison. A port catheter seen with the tip overlying the superior vena cava. No pneumothorax. Mild base atelectasis noted. Heart size and the mediastinal contour are within normal limits. Requested By: Dictated By: CECELIA BETH M.D. on Oct 21 2014 11:10A This document has been electronically signed by: CECELIA BETH M.D. on Oct 21 2014 11:10A [id number] Result [facility] Historical Provider IMG XR PROCEDURES Final R esult * Blood glucose, POC (10/21/2014 8:17 AM CDT) Glucose, POC, bld 106 70 - 199 mg/dl HISTORICAL RESULTS Blood specimen (specimen) 10/21/2014 8:17 AM CDT Farzaneh Ramey MD PhD LAB BLOOD ORDERABLES Final Result HISTORICAL RESULTS * DISCHARGE LABORATORY CUMULATIVE REPORT (10/21/2014) Narrative 10/21/2014 Ordered by an unspecified provider. Historical Provider LAB BLOOD ORDERABLES Deann l Result documented in this encounter Visit Diagnoses Diagnosis Malignant neoplasm of other specified sites of female breast Type 2 or unspecified type diabetes mellitus Essential hypertension Unspecified essential hypertension Disorder of thyroid Unspecified disorder of thyroid Restless legs syndrome Restless legs syndrome (RLS) Anxiety state Anxiety state, unspecified Family history of malignant neoplasm of breast Family history of malignant neoplasm of gastrointestinal tract Family history of malignant neoplasm of prostate documented in this encounter Care Teams Office Services Manager Relationship Specialty Start Date End Date Antoinette Zhu MD [address] [employer] [address] PCP - General 08/01/13 07/26/16 documented as of this encounter
--- OUTSIDE RECORDS SUMMARY | 2024-04-26 04:33 | XMS_ITS | Encounter Summary ---
Author Organization [facility] Facility Care Team Providers Care Econometrics Professor Name Role Phone Antoinette Zhu MD Primary Care Provider [phone] Encounter Details Date Type Department Care Team (Late st Contact Info) Description 09/09/2014 - 09/09/2014 11:59 PM CDT Hospital Encounter [facility] Aft, Farzaneh Bell MD PhD [address] [place] [address] Social History Tobacco Use Types Packs/Day Years Used Date Smoking Tobacco: Former Alcohol Use Standard Drinks/Week Comments No 0 (1 standard drink = 0.6 oz pur e alcohol) Comments Unknown Sex and Gender Information Value Date Recorded Sex Assigned at Not on file 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
--- OUTSIDE RECORDS SUMMARY | 2024-04-26 04:33 | XMS_ITS | Encounter Summary ---
Author Organization [facility] Facility Care Team Providers Care Wing Scorer Name Role Phone Antoinette Zhu MD Primary Care Provider [phone] Encounter Details Date Type Department Care Team (Late st Contact Info) Description 11/16/2014 10:57 PM CDT - 11/18/2014 1:35 PM T Hospital Encounter 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 Gender Identity Not on file Sexual Orientation Not on file documented as of this encounter Last Filed Vital Signs Vital Sign Reading Time Taken Comments Blood Pressure 103/51 11/18/2014 12:03 PM CDT Pulse 80 11/18/2014 12:03 PM CDT Temperature - - Respiratory Rate - - Oxygen Saturation 100% 11/18/2014 12: 03 PM CDT Inhaled Oxygen Concentration - - Weight 122.1 kg (269 lb 2.9 oz) 015 11:25 PM CDT Height 157.5 cm (5' 2 ) 11/16/2014 11:2 5 PM CDT Body Mass Index 49.23 11/16/2014 11:25 PM CDT documented in this encounter Medications [...] Associated Diagnosis Comments BLOOD GLUCOSE, POC Routine 11/18/2014 12 :49 PM CDT BLOOD GLUCOSE, POC Routine 11/18/2014 8: 02 AM CDT DISCHARGE LABORATORY CUMULATIVE REPORT 11/18/2014 BLOOD GLUCOSE, POC Routine 11/17/2014 9: 35 PM CDT BLOOD GLUCOSE, POC Routine 11/17/2014 6: 19 PM CDT BLOOD GLUCOSE, POC Routine 11/17/2014 11 :35 AM CDT URINALYSIS Routine 11/17/2014 11:09 AM CDT HERPES SIMPLEX VIRUS (HSV) PCR, RAPID DETECTION, CDR Routine 11/17/2014 11:00 AM CDT BLOOD GLUCOSE, POC Routine 11/17/2014 10 :06 AM CDT BLOOD CELL COUNT (CBC) Routine 11/17/2014 4:32 AM CDT SERUM MAGNESIUM Routine 11/17/2014 4:02 AM CDT PLASMA PHOSPHORUS Routine 11/17/2014 4:0 2 AM CDT PLASMA BASIC METABOLIC PANEL Routine 11/17/2014 4:02 AM CDT BLOOD GLUCOSE, POC Routine 11/17/2014 12 :10 AM CDT ALL MICROBIOLOGY REPORT SECTION Routine 11/17/2014 12:00 AM CDT AEROBIC CULTURE AND GRAM STAIN, CDR Routine 11/16/2014 9:53 PM CDT CHEST RADIOGRAPHY, FRONTAL (AP), LATERAL Routine 11/16/2014 9:33 PM CDT BLOOD CULTURE, CDR Routine 11/16/2014 9: 07 PM CDT BLOOD CULTURE, CDR Routine 11/16/2014 9: 07 PM CDT PLASMA BASIC METABOLIC PANEL Routine 11/16/2014 8:07 PM CDT BLOOD CELL COUNT (CBC) Routine 11/16/2014 8:07 PM CDT BLOOD GLUCOSE, POC Routine 11/16/2014 7: 57 PM CDT ALL MICROBIOLOGY REPORT SECTION Routine 11/16/2014 12:00 AM CDT ALL MICROBIOLOGY REPORT SECTION Routine 11/16/2014 12:00 AM CDT ALL MICROBIOLOGY REPORT SECTION Routine 11/16/2014 12:00 AM CDT documented in this encounter Results * Blood glucose, POC (11/18/2014 12:49 PM CDT) Glucose, POC, bld 127 70 - 199 mg/dl HISTORICAL RESULTS Blood specimen (specimen) 11/18/2014 12:49 PM CDT Mohini Oconnor MD LAB BLOOD ORDERABLES Final Result Performing Organization Address [facility] Co de Phone Number HISTORICAL RESULTS * Blood glucose, POC (11/18/2014 8:02 AM CDT) Glucose, POC, bld 131 70 - 199 mg/dl HISTORICAL RESULTS Blood specimen (specimen) 11/18/2014 8:02 AM CDT Mohini Oconnor MD LAB BLOOD ORDERABLES Final Result Performing Organization Address City/[facility]/ZIP Co de Phone Number HISTORICAL RESULTS * DISCHARGE LABORATORY CUMULATIVE REPORT (11/18/2014) Narrative 11/18/2014 Ordered by an unspecified provider. Historical Sarah DURÁN LAB BLOOD ORDERABLES Deann l Result * Blood glucose, POC (11/17/2014 9:35 PM CDT) Glucose, POC, bld 127 70 - 199 mg/dl HISTORICAL RESULTS Blood specimen (specimen) 11/17/2014 9:35 PM CDT Mohini Oconnor MD LAB BLOOD ORDERABLES Final Result Performing Organization Address [facility] de Phone Number HISTORICAL RESULTS * Blood glucose, POC (11/17/2014 6:19 PM CDT) Glucose, POC, bld 145 70 - 199 mg/dl HISTORICAL RESULTS Blood specimen (specimen) 11/17/2014 6:19 PM CDT Mohini Oconnor MD LAB BLOOD ORDERABLES Final Result Performing Organization Address [facility] de Phone Number HISTORICAL RESULTS * Blood glucose, POC (11/17/2014 11:35 AM CDT) Glucose, POC, bld 103 70 - 199 mg/dl HISTORICAL RESULTS Blood specimen (specimen) 11/17/2014 11:35 AM CDT Mohini Oconnor MD LAB BLOOD ORDERABLES Final Result Performing Organization Address [facility] Phone Number HISTORICAL RESULTS * Urinalysis (11/17/2014 11:09 AM CDT) Color, ur Yellow Yellow HISTORICAL RESULTS [...] esterase, ur Negative Negative HISTORICAL RESULTS Urine 11/17/2014 11:0 9 AM CDT Kip Olvera MD PhD LAB BLOOD ORDERABLES Final Result Performing Organization Address [facility] de Phone Number HISTORICAL RESULTS * Herpes simplex virus (HSV) PCR, rapid detection (11/17/2014 11:00 AM CDT) Lesion (Chest, right) 11/17/2014 11:00 AM CDT 11/17/2014 7:21 PM CDT Impressions HISTORICAL RESULTS - 11/18/2014 12:22 PM CDT The HSV PCR assay used to test this specimen detects both HSV type 1 and HSV type 2. ??When necessary, the HSV type on a positive specimen can be requested by calling the Virology Laboratory at [phone]. ??In validation testing performed at [facility], the sensitivity of the assay was 40% greater than that of conventional viral culture. ??It does not detect any other known human herpes viruses and will not detect latent HSV infection. ??For most purposes, the HSV PCR replaces a viral culture. ??However, for suspected sexual abuse and rape cases, a viral culture should be requested since PCR test results might not be admissible in legal proceedings. ??A viral culture should also be requested when an antiviral susceptibility test is required. ??This test was developed and it's performance characteristics determined by the [facility] Virology Laboratory. ??It has not been cleared nor approved by the [place]. S. Food and Drug Administration. ?? Current interpretive data was last revised on 05. Narrative HISTORICAL RESULTS - 11/18/2014 12:22 PM CDT Negative us Historical Provider LAB MICROBIOLOGY - GENERA L ORDERABLES Final Result HISTORICAL RESULTS * Blood glucose, POC (11/17/2014 10:06 AM CDT) Glucose, POC, bld 116 70 - 199 mg/dl HISTORICAL RESULTS Blood specimen (specimen) 11/17/2014 10:06 AM CDT Mohini Oconnor MD LAB BLOOD ORDERABLES Final Result HISTORICAL RESULTS * (ABNORMAL) Blood cell count (CBC) (11/17/2014 4:32 AM CDT) WBC 9.4 3.8 - 9.8 K/cumm HISTORICAL RESULTS RBC 3.56(L) 3.90 - 5.00 M/cumm HISTORICAL RESULTS Hgb 9.8(L) 12.1 - 15.1 g/dl HISTORICAL RESULTS Hct 30.8(L) 36.1 - 44.3 % HISTORICAL RESULTS MCV 86.6 80.0 - 97.6 fl HISTORICAL RESULTS MCH 27.5 26.7 - 33.7 pg HISTORICAL RESULTS MCHC 31.7(L) 32.7 - 35.5 g/dl HISTORICAL RESULTS Rdw 14.1 11.8 - 14.6 % HISTORICAL RESULTS Platelets 236 140 - 440 K/cumm HISTORICAL RESULTS Comment:{No clot detected in sample.} MPV 8.2 6.8 - 10.4 fl HISTORICAL RESULTS Neutrophils 49.2 38.7 - 74.5 % HISTORICAL RESULTS Lymphocytes 35.8 20.0 - 54.3 % HISTORICAL RESULTS Monos 7.7 4.3 - 13.5 % HISTORICAL RESULTS Eosinophils 6.8(H) 0.0 - 6.0 % HISTORICAL RESULTS Basophils 0.5 0.0 - 3.0 % HISTORICAL RESULTS Neutrophils, abs 4.6 1.8 - 6.6 K/cumm HISTORICAL RESULTS Lymphocytes, abs 3.4(H) 1.2 - 3.3 K/cumm HISTORICAL RESULTS Monocytes, absolute 0.7 0.2 - 1.2 K/cumm HISTORICAL RESULTS Eosinophils, abs 0.6(H) 0.0 - 0.5 K/cumm HISTORICAL RESULTS Basophils, abs 0.0 0.0 - 0.2 K/cumm HISTORICAL RESULTS Blood specimen (specimen) 11/17/2014 4:32 AM CDT Benja Boyd MD LAB BLOOD ORDERABLES Final Result HISTORICAL RESULTS * Plasma basic metabolic panel (11/17/2014 4:02 AM CDT) Sodium 136 135 - 145 mmol/L HISTORICAL RESULTS K, pl 4.4 3.3 - 4.9 mmol/L HISTORICAL RESULTS Chloride 102 97 - 110 mmol/L HISTORICAL RESULTS CO2 22 22 - 32 mmol/L HISTORICAL RESULTS A. gap 12 0 - 16 mmol/L HISTORICAL RESULTS Glucose 114 70 - 199 mg/dl HISTORICAL RESULTS BUN 18 8 - 25 mg/dl HISTORICAL RESULTS Creatinine 0.66 0.60 - 1.10 mg/dl HISTORICAL RESULTS Calcium 10.0 8.6 - 10.3 mg/dl HISTORICAL RESULTS Plasma 11/17/2014 4:02 AM CDT Benja Boyd MD LAB BLOOD ORDERABLES Final Result Performing Organization Address [facility] Phone Number HISTORICAL RESULTS * Plasma phosphorus (11/17/2014 4:02 AM CDT) Phosphorus, pl 3.5 2.3 - 4.3 mg/dl HISTORICAL RESULTS Plasma 11/17/2014 4:02 AM CDT Benja Boyd MD LAB BLOOD ORDERABLES Final Result Performing Organization Address [facility] Phone Number HISTORICAL RESULTS * Serum magnesium (11/17/2014 4:02 AM CDT) Magnesium 1.8 1.4 - 2.5 mg/dl HISTORICAL RESULTS Serum 11/17/2014 4:02 AM CDT Benja Boyd MD LAB BLOOD ORDERABLES Final Result Performing Organization Address [facility] Phone Number HISTORICAL RESULTS * Blood glucose, POC (11/17/2014 12:10 AM CDT) Glucose, POC, bld 106 70 - 199 mg/dl HISTORICAL RESULTS Blood specimen (specimen) 11/17/2014 12:10 AM CDT Khris Arthur MD LAB BLOOD ORDERABLES Final Result Performing Organization Address [facility] Phone Number HISTORICAL RESULTS * All Microbiology Report Section (11/17/2014 12:00 AM CDT) 11/17/2014 Narrative HISTORICAL RESULTS - 11/18/2014 3:36 PM CDT ? [facility] ?[facility] [place] ?[place], [place] [address] ? Patient Name: ??MOHSEN SALAZAR ? Med Rec Number: [id number] ? Fin Number: ?[id number] ? Date: ?1955 ? Sex/Age: ? Female 59 years ? Admit Date: ?11/16/2014 ? Discharge Date: 11/18/2014 ? Doctor: ?Jerson , Khris O ? Facility: ?[facility] ? Location: ?7900 [address] 01 ?* Abnormal ??A Alert ??f Footnote ??^ Corrected ??L Low ??H High ?i Interp Data ??@ Ref Lab ? Chart Type:Cumulative ?* * * * MICROBIOLOGY - MOLECULAR TESTING * * * * ?PROCEDURE: Herpes Simplex Virus (HSV) PCR - rapid detection ? SOURCE: Lesion ? COLLECTED: 11/17/14 ??1100 ?BODY SITE: Chest, right ? STARTED: 11/17/14 ??1921 ? FREE TEXT SOURCE: ? FINAL REPORT ? REPORTED: 11/18/14 1220 ? Negative ? ORDER COMMENTS ? (1)Testing performed by: [facility], [place] [address] ?* * * ??Interpretive Results ??* * * ? (1)The HSV PCR assay used to test this specimen detects both HSV ? type 1 and HSV type 2. ??When necessary, the HSV type on a ? positive specimen can be requested by calling the Virology ? Laboratory at [phone]. ??In validation testing performed at ? [facility], the sensitivity of the assay was ? 40% greater than that of conventional viral culture. ??It does ? not detect any other known human herpes viruses and will not ? detect latent HSV infection. ??For most purposes, the HSV PCR ? replaces a viral culture. ??However, for suspected sexual abuse ? and rape cases, a viral culture should be requested since PCR ? test results might not be admissible in legal proceedings. ??A ? viral culture should also be requested when an antiviral ? susceptibility test is required. ??This test was developed and ? it's performance characteristics determined by the [place] ? [facility]. ??It has not been ? cleared nor approved by the [place]. S. Food and Drug Administration. ? Current interpretive data was last revised on 05. ? Historical Provider LAB MICROBIOLOGY - GENERA L ORDERABLES Final Result Performing Organization Address [facility] de Phone Number HISTORICAL RESULTS * Aerobic culture and Gram stain (11/16/2014 9:53 PM CDT) Drainage (Breast, right) 11/16/2014 9:53 PM CDT 11/17/2014 1:47 AM CDT Impressions HISTORICAL RESULTS - 11/21/2014 8:51 AM CDT Specimens submitted from normally sterile [...] revised on 2013. Narrative HISTORICAL RESULTS - 11/21/2014 8:51 AM CDT Rare polymorphonuclear leukocytes seen. No organisms seen. Rare Mixed skin microorganisms. Historical Provider LAB MICROBIOLOGY - GENERA L ORDERABLES Final Result Performing Organization Address [facility] Co de Phone Number HISTORICAL RESULTS * CHEST RADIOGRAPHY, FRONTAL (AP), LATERAL (11/16/2014 9:33 PM CDT) Anatomical Region Laterality Modality N/A Radiographic Lizeth ging 11/16/2014 9:33 PM CDT Narrative 11/17/2014 11:30 AM CDT Avery LAST M.D. FINAL REPORT The radiology attending physician has personally reviewed this study, and has reviewed and/or edited this written report and agrees with it. ACC# ??Date Time ??Exam [id number] Nov 16, 2014 21:33:00 94411 Chest 2 views Frontl & Lat EXAMINATION: ?? Chest 2 views frontal and lateral HISTORY: Shortness of breath IMPRESSION: ?? Two views of the chest are compared to the study dated 11/11/2014. Bilateral breast drains are in place. Right upper quadrant surgical clips are noted. Lungs are clear, no pleural effusion or pneumothorax. Heart size and mediastinal contours are normal. Requested By: CANDACE BRONSON M.D. Dictated By: ?? JO BRONSON M.D. ??on Nov 16 2014 ??9:40P This document has been electronically signed by: MERVAT BENEDICT M.D. on Nov 17 2014 11:30A [id number] Procedure Note Provider, MD yTler - 08/12/2016 MERVAT BENEDICT M.D. JO BRONSON M.D. FINAL REPORT The radiology attending physician has personally reviewed this study, and has reviewed and/or edited this written report and agrees with it. ACC# Date Time Exam [id number] Nov 16, 2014 21:33:00 09265 Chest 2 views Frontl & Lat EXAMINATION: Chest 2 views frontal and lateral HISTORY: Shortness of breath IMPRESSION: Two views of the chest are compared to the study dated 11/11/2014. Bilateral breast drains are in place. Right upper quadrant surgical clips are noted. Lungs are clear, no pleural effusion or pneumothorax. Heart size and mediastinal contours are normal. Requested By: CANDACE BRONSON M.D. Dictated By: JO BRONSON M.D. on Nov 16 2014 9:40P This document has been electronically signed by: MERVAT BENEDICT M.D. on Nov 17 2014 11:30A [id number] us Historical Provider IMG XR PROCEDURES Final R esult * Blood culture (11/16/2014 9:07 PM CDT) Blood specimen (specimen) (Antecubital, right) 11/16/2014 9:07 PM CDT 11/16/2014 10:23 PM CDT Impressions HISTORICAL RESULTS - 11/22/2014 5:39 AM CDT Blood cultures are incubated for [...] organism identification may be performed using the [employer] Nanosphere Gram Positive Blood Culture Assay. ??The Nanosphere assay detects microbial DNA in positive blood culture broth via hybridization of target DNA to capture oligonucleotides on a microarray. ??This assay has been cleared by the [place] Food and Drug Administration and its performance characteristics have been verified by the [facility]biology [facility]. Current Interpretive Data was last revised on 2013. Narrative HISTORICAL RESULTS - 11/22/2014 5:39 AM CDT No growth us Historical Provider LAB MICROBIOLOGY - GENERA L ORDERABLES Final Result HISTORICAL RESULTS * Blood culture (11/16/2014 9:07 PM CDT) Blood specimen (specimen) (Hand, right) 11/16/2014 9:07 PM CDT 11/16/2014 10:23 PM CDT Impressions HISTORICAL RESULTS - 11/22/2014 5:39 AM CDT Blood cultures are incubated for [...] organism identification may be performed using the [employer] Nanosphere Gram Positive Blood Culture Assay. ??The Nanosphere assay detects microbial DNA in positive blood culture broth via hybridization of target DNA to capture oligonucleotides on a microarray. ??This assay has been cleared by the [place] Food and Drug Administration and its performance characteristics have been verified by the [facility]. Current Interpretive Data was last revised on 2013. Narrative HISTORICAL RESULTS - 11/22/2014 5:39 AM CDT No growth us Historical Provider MD LAB MICROBIOLOGY - GENERA L ORDERABLES Final Result HISTORICAL RESULTS * Plasma basic metabolic panel (11/16/2014 8:07 PM CDT) Sodium 137 135 - 145 mmol/L HISTORICAL RESULTS K, pl 4.5 3.3 - 4.9 mmol/L HISTORICAL RESULTS Chloride 102 97 - 110 mmol/L HISTORICAL RESULTS CO2 25 22 - 32 mmol/L HISTORICAL RESULTS A. gap 10 0 - 16 mmol/L HISTORICAL RESULTS Glucose 98 70 - 199 mg/dl HISTORICAL RESULTS BUN 17 8 - 25 mg/dl HISTORICAL RESULTS Creatinine 0.78 0.60 - 1.10 mg/dl HISTORICAL RESULTS Calcium 10.0 8.6 - 10.3 mg/dl HISTORICAL RESULTS Plasma 11/16/2014 8:07 PM CDT Felicitas DTye Counts [employer]UKE[employer] ROUTE DRIVER LAB BLOOD ORDERABLES Final Re sult HISTORICAL RESULTS * (ABNORMAL) Blood cell count (CBC) (11/16/2014 8:07 PM CDT) WBC 12.3(H) 3.8 - 9.8 K/cumm HISTORICAL RESULTS RBC 4.39 3.90 - 5.00 M/cumm HISTORICAL RESULTS Hgb 12.5 12.1 - 15.1 g/dl HISTORICAL RESULTS Hct 38.0 36.1 - 44.3 % HISTORICAL RESULTS MCV 86.5 80.0 - 97.6 fl HISTORICAL RESULTS MCH 28.5 26.7 - 33.7 pg HISTORICAL RESULTS MCHC 33.0 32.7 - 35.5 g/dl HISTORICAL RESULTS Rdw 14.0 11.8 - 14.6 % HISTORICAL RESULTS Platelets 311 140 - 440 K/cumm HISTORICAL RESULTS MPV 7.9 6.8 - 10.4 fl HISTORICAL RESULTS Neutrophils 62.8 38.7 - 74.5 % HISTORICAL RESULTS Lymphocytes 24.4 20.0 - 54.3 % HISTORICAL RESULTS Monos 7.8 4.3 - 13.5 % HISTORICAL RESULTS Eosinophils 4.5 0.0 - 6.0 % HISTORICAL RESULTS Basophils 0.5 0.0 - 3.0 % HISTORICAL RESULTS Neutrophils, abs 7.7(H) 1.8 - 6.6 K/cumm HISTORICAL RESULTS Lymphocytes, abs 3.0 1.2 - 3.3 K/cumm HISTORICAL RESULTS Monocytes, absolute 1.0 0.2 - 1.2 K/cumm HISTORICAL RESULTS Eosinophils, abs 0.6(H) 0.0 - 0.5 K/cumm HISTORICAL RESULTS Basophils, abs 0.1 0.0 - 0.2 K/cumm HISTORICAL RESULTS Blood specimen (specimen) 11/16/2014 8:07 PM CDT Felicitas Waddell [employer]UKE[employer] ROUTE DRIVER LAB BLOOD ORDERABLES Final Re sult Performing Organization Address City/[facility] Co de Phone Number HISTORICAL RESULTS * Blood glucose, POC (11/16/2014 7:57 PM CDT) [facility] Glucose, POC, bld 110 70 - 199 mg/dl HISTORICAL RESULTS Blood specimen (specimen) 11/16/2014 7:57 PM CDT Historical Provider LAB BLOOD ORDERABLES Deann l Result Performing Organization Address [facility] Co de Phone Number HISTORICAL RESULTS * All Microbiology Report Section (11/16/2014 12:00 AM CDT) 11/16/2014 Narrative HISTORICAL RESULTS - 11/21/2014 10:01 AM CDT ? [facility] ?[facility] [place] ?[place], [place] [address] ? Patient Name: ??HILLMER, MOHSEN M ? Med Rec Number: [id number] ? Fin Number: ?[id number] ? Date: ?1955 ? Sex/Age: ? Female 59 years ? Admit Date: ?11/16/2014 ? Discharge Date: 11/18/2014 ? Doctor: ?Ademuyiwa , Foluso O ? Facility: ?[facility] ? Location: ?7900 [address] 01 ?* Abnormal ??A Alert ??f Footnote ??^ Corrected ??L Low ??H High ?i Interp Data ??@ Ref Lab ? Chart Type:Cumulative ?* * * * MICROBIOLOGY - WOUND and EXUDATES * * * * ?PROCEDURE: Aerobic Culture, Wound and Gram Stain ? SOURCE: Drainage ? COLLECTED: 11/16/ ??2153 ?BODY SITE: Breast, right ? STARTED: 11/17/14 ??0147 ? FREE TEXT SOURCE: ? DIRECT SPECIMEN EXAMINATION ? Stain ? REPORTED: 11/17/14 0432 ? Rare polymorphonuclear leukocytes seen. ? No organisms seen. ? FINAL REPORT ? REPORTED: 11/21/14 0851 ? Rare Mixed skin microorganisms. ?* * * ??Interpretive Results ??* * [...] HISTORICAL RESULTS * All Microbiology Report Section (11/16/2014 12:00 AM CDT) 11/16/2014 Narrative HISTORICAL RESULTS - 11/22/2014 6:28 AM CDT ? [facility] ?[facility] [place] ?[place], [place] [address] ? Patient Name: ??MOHSEN SALAZAR ? Med Rec Number: [id number] ? Fin Number: ?[id number] ? Date: ?1955 ? Sex/Age: ? Female 59 years ? Admit Date: ?11/16/2014 ? Discharge Date: 11/18/2014 ? Doctor: ?Ademuyiwa , Morroo O ? Facility: ?[facility] ? Location: ?7900 [address] 01 ?* Abnormal ??A Alert ??f Footnote ??^ Corrected ??L Low ??H High ?i Interp Data ??@ Ref Lab ? Chart Type:Cumulative ?* * * * MICROBIOLOGY - BLOOD/STERILE FLUID * * * * ?PROCEDURE: Culture, Blood ? SOURCE: Blood ? COLLECTED: 11/16/14 ??2106 ?BODY SITE: Antecubital, right ? STARTED: 11/16/14 ??2223 ? FREE TEXT SOURCE: ? FINAL REPORT ? REPORTED: 11/22/14 0539 ? No growth ?* * * ??Interpretive [...] identification may be ? performed using the [employer] Nanosphere Gram Positive Blood ? Culture Assay. ??The Nanosphere assay detects microbial DNA in ? positive blood culture broth via hybridization of target DNA to ? capture oligonucleotides on a microarray. ??This assay has been ? cleared by the [place] Food and Drug Administration and ? its performance characteristics have been verified by the ? [facility].Current ? Interpretive Data was last revised on 2013. ? us Historical Provider MD LAB MICROBIOLOGY - GENERA L ORDERABLES Final Result HISTORICAL RESULTS * All Microbiology Report Section (11/16/2014 12:00 AM CDT) 11/16/2014 Narrative HISTORICAL RESULTS - 11/22/2014 6:28 AM CDT ? [facility] ?[address] [facility] [place] ?[place], [place] [address] ? Patient Name: ??MOHSEN SALAZAR ? Med Rec Number: [id number] ? Fin Number: ?[id number] ? Date: ?1955 ? Sex/Age: ? Female 59 years ? Admit Date: ?11/16/2014 ? Discharge Date: 11/18/2014 ? Doctor: ?Khris Arthur ? Facility: ?[facility] ? Location: ?7900 [address] 01 ?* Abnormal ??A Alert ??f Footnote ??^ Corrected ??L Low ??H High ?i Interp Data ??@ Ref Lab ? Chart Type:Cumulative ?* * * * MICROBIOLOGY - BLOOD/STERILE FLUID * * * * ?PROCEDURE: Culture, Blood ? SOURCE: Blood ? COLLECTED: 11/16/14 ??2106 ?BODY SITE: Hand, right ? STARTED: 11/16/14 ??2223 ? FREE TEXT SOURCE: ? FINAL REPORT ? REPORTED: 11/22/14 0539 ? No growth ?* * * ??Interpretive [...] identification may be ? performed using the [employer] Nanosphere Gram Positive Blood ? Culture Assay. ??The Nanosphere assay detects microbial DNA in ? positive blood culture broth via hybridization of target DNA to ? capture oligonucleotides on a microarray. ??This assay has been ? cleared by the [place] Food and Drug Administration and ? its performance characteristics have been verified by the ? [facility].Current ? Interpretive Data was last revised on 2013. ? us Historical Provider LAB MICROBIOLOGY - GENERA L ORDERABLES Final Result HISTORICAL RESULTS documented in this encounter Visit Diagnoses Diagnosis Cellulitis and abscess of trunk Malignant neoplasm of breast (female) (HCC) Malignant neoplasm of breast (female), unspecified site Type 2 or unspecified type diabetes mellitus Essential hypertension Unspecified essential hypertension Candidiasis of skin and nails documented in this encounter Care Teams Wing Scorer Relationship Specialty Start Date End Date Antoinette Zhu MD [address] [address] PCP - General 08/01/13 07/26/16 documented as of this encounter
--- OUTSIDE RECORDS SUMMARY | 2024-04-26 04:33 | XMS_ITS | Encounter Summary ---
Author Organization [facility] Facility Care Team Providers Care Seo Engineer Name Role Phone Antoinette Zhu MD Primary Care Provider [phone] Encounter Details Date Type Department Care Team (Late st Contact Info) Description 11/21/2014 - 11/21/2014 11:59 PM CDT Hospital Encounter [facility] Félix Arthur MD [address] [facility] [address] [place] [address] Malignant neoplasm of breast (female) (CMS/HCC) Social History Tobacco Use Types Packs/Day Years Used Date Smoking Tobacco: Former Alcohol Use Standard Drinks/Week Comments No 0 (1 standard drink = 0.6 oz pur e alcohol) Comments Unknown Sex and Gender Information Value Date Recorded Sex Assigned at Not on file 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 KRISTINE COOPER M.D. FINAL REPORT The radiology attending physician has personally reviewed this study, and has reviewed and/or edited this written report and agrees with it. ACC# ??Date Time ??Exam [id number] Nov 21, 2014 13:20:00 [id number] Chest 1 view Frontal EXAMINATION: ?? Chest one view IMPRESSION: ?? Comparison to 11/16/2014. Right-sided peripherally inserted central venous catheter has its tip overlying the superior vena cava. Bilateral breast drains are unchanged in position. Lungs are clear. Specifically, no pneumonia or edema. No effusion or pneumothorax. Cardiomediastinal silhouette is normal. Requested By: FÉLIX ARTHUR MD, MPH Dictated By: ?? KRISTINE COOPER M.D. ??on Nov 21 2014 ??5:56P This document has been electronically signed by: LING ADEN M.D. on Nov 21 2014 ??7:45P [id number] Procedure Note Provider, MD Tyler - 08/12/2016 LING ADEN M.D. KRISTINE COOPER M.D. FINAL REPORT The radiology attending physician has personally reviewed this study, and has reviewed and/or edited this written report and agrees with it. ACC# Date Time Exam [id number] Nov 21, 2014 13:20:00 [id number] Chest 1 view Frontal EXAMINATION: Chest one view IMPRESSION: Comparison to 11/16/2014. Right-sided peripherally inserted central venous catheter has its tip overlying the superior vena cava. Bilateral breast drains are unchanged in position. Lungs are clear. Specifically, no pneumonia or edema. No effusion or pneumothorax. Cardiomediastinal silhouette is normal. Requested By: FÉLIX ARTHUR MD, MPH Dictated By: KRISTINE COOPER M.D. on Nov 21 2014 5:56P This document has been electronically signed by: LING ADEN M.D. on Nov 21 2014 7:45P [id number] Historical Provider IMG XR PROCEDURES Final R esult documented in this encounter Visit Diagnoses Diagnosis Malignant neoplasm of breast (female) (HCC) Malignant neoplasm of breast (female), unspecified site documented in this encounter Care Teams Seo Engineer Relationship Specialty Start Date End Date Antoinette Zhu MD [address] [address] PCP - General 08/01/13 07/26/16 documented as of this encounter
--- OUTSIDE RECORDS SUMMARY | 2024-04-26 04:33 | XMS_ITS | Encounter Summary ---
Author Organization [facility] Facility Care Team Providers Care Card Lacer Jacquard Name Role Phone Antoinette Zhu MD Primary Care Provider [phone] Encounter Details Date Type Department Care Team (Latest Contact Info) Description 12/23/2014 - 12/23/2014 11:59 PM CDT Hospital Encounter [facility] Bj Workman MD PhD [address] [place] [address] Encounter for fitting and adjustment of non-vascular catheter NEC; Malignant neoplasm of breast (female) (CMS/HCC); Acquired absence of breast and absent nipple; Seroma complicating a procedure (CMS/HCC) Social History Tobacco Use Types Packs/Day Years Used Date Smoking Tobacco: Former Alcohol Use Standard Drinks/Week Comments No 0 (1 standard drink = 0.6 oz pur e alcohol) Comments Unknown Sex and Gender Information Value Date Recorded Sex Assigned at Not on file 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 TAHIR MENA M.D. FINAL REPORT The radiology attending physician has personally reviewed this study, and has reviewed and/or edited this written report and agrees with it. ACC# ??Date Time ??Exam [id number] Dec 23, 2014 16:02:00 IVRFUout [id number] Outpt FU Simple ACC# ??Date Time ??Exam [id number] Dec 23, 2014 16:02:00 IVRFUout [id number] Outpt FU Simple EXAMINATION: ?INTERVENTIONAL RADIOLOGY FOLLOW-UP VISIT REFERRAL: ??Dr. Dimas has referred this patient for reevaluation after her right breast seroma drain fell out. HISTORY: ??59-year-old female with breast cancer status post bilateral mastectomies and bilateral postop seromas status post bilateral percutaneous drainage. Her left drain was removed on 12/05/2014. A recent chest CT showed resolution of the right fluid collection as well. The patient presents after the right drain fell out on 12/20/2014, she reports mild redness and tenderness around the drain site area. She does not report enlargement of the area since the catheter fell out or other evidence of a enlarging fluid collection. The drain was outputting 7 cc per day prior to it falling out. PROCEDURE: There is a small amount of induration and erythema around the absent right catheter entry site. There is no fluctuance or drainage. There is no palpable fluid collection. A sterile bandage was applied. ?? IMPRESSION: ?The patient was given cephalexin 500mg TID for 7 days for a superficial skin infection at the catheter exit site. There is no evidence of a residual fluid collection on physical exam or the recent CT. No new drain was placed. Monitor for signs of infection or reaccumulation of fluid. ?? Requested By: Dictated By: ?? TAHIR MENA M.D. ??on Dec ??2014 ??5:53P This document has been electronically signed by: PAUL AIKEN M.D. on Dec ??2014 ??8:51A Procedure Note Provider, MD Tyler - 08/12/2016 PAUL AIKEN M.D. TAHIR MENA M.D. FINAL REPORT The radiology attending physician has personally reviewed this study, and has reviewed and/or edited this written report and agrees with it. ACC# Date Time Exam [id number] Dec 23, 2014 16:02:00 IVRFUout [id number] Outpt FU Simple ACC# Date Time Exam [id number] Dec 23, 2014 16:02:00 IVRFUout 75677 Outpt FU Simple EXAMINATION: INTERVENTIONAL RADIOLOGY FOLLOW-UP VISIT REFERRAL: Dr. Dimas has referred this patient for reevaluation after her right breast seroma drain fell out. HISTORY: 59-year-old female with breast cancer status post bilateral mastectomies and bilateral postop seromas status post bilateral percutaneous drainage. Her left drain was removed on 12/05/2014. A recent chest CT showed resolution of the right fluid collection as well. The patient presents after the right drain fell out on 12/20/2014, she reports mild redness and tenderness around the drain site area. She does not report enlargement of the area since the catheter fell out or other evidence of a enlarging fluid collection. The drain was outputting 7 cc per day prior to it falling out. PROCEDURE: There is a small amount of induration and erythema around the absent right catheter entry site. There is no fluctuance or drainage. There is no palpable fluid collection. A sterile bandage was applied. IMPRESSION: The patient was given cephalexin 500mg TID for 7 days for a superficial skin infection at the catheter exit site. There is no evidence of a residual fluid collection on physical exam or the recent CT. No new drain was placed. Monitor for signs of infection or reaccumulation of fluid. Requested By: Dictated By: TAHIR MENA M.D. on Dec 23 2014 5:53P This document has been electronically signed by: PAUL AIKEN M.D. on Dec 27 2014 8:51A Historical Provider MD GARCIA CT PROCEDURES Final R esult documented in this encounter Visit Diagnoses Diagnosis Encounter for fitting and adjustment of non-vascular catheter NEC Malignant neoplasm of breast (female) (HCC) Malignant neoplasm of breast (female), unspecified site Acquired absence of breast and absent nipple Acquired absence of breast and nipple Seroma complicating a procedure documented in this encounter Care Teams Card Lacer Jacquard Relationship Specialty Start Date End Date Antoinette Zhu MD [address] [address] PCP - General 08/01/13 07/26/16 documented as of this encounter
--- OUTSIDE RECORDS SUMMARY | 2024-04-26 04:33 | XMS_ITS | Encounter Summary ---
Author Organization [facility] Facility Care Team Providers Care Aids Social Worker Name Role Phone Antoinette Zhu MD Primary Care Provider [phone] Encounter Details Date Type Department Care Team (Late st Contact Info) Description 09/23/2014 8:11 AM CDT - 09/25/2014 4:04 PM T Hospital Encounter [facility] Aft, Farzaneh Bell MD PhD [address] [place] [address] Malignant neoplasm of breast (female) (HCC); Prophylactic breast removal; Essential hypertension; Type 2 or unspecified type diabetes mellitus; Obstructive sleep apnea; Diaphragmatic hernia; Osteoarthrosis; Morbid obesity (HCC); Adult body mass index 50.0-59.9 (HCC); Personal history of pulmonary embolism; Personal history of tobacco use, presenting hazards to health Social History Tobacco Use Types Packs/Day Years Used Date Smoking Tobacco: Former Alcohol Use Standard Drinks/Week Comments No 0 (1 standard drink = 0.6 oz pur e alcohol) Comments Unknown Sex and Gender Information Value Date Recorded Sex Assigned at Not on file 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 Gender Identity Not on file Sexual Orientation Not on file documented as of this encounter Last Filed Vital Signs Vital Sign Reading Time Taken Comments Blood Pressure 110/63 09/25/2014 7:38 AM CDT Pulse 66 09/25/2014 7:38 AM CDT Temperature - - Respiratory Rate - - Oxygen Saturation 99% 09/25/2014 7:38 AM CDT Inhaled Oxygen Concentration - - Weight 124.7 kg (274 lb 15.7 oz) 09/23/2014 6:16 PM CDT Height 157.5 cm (5' 2 ) 09/23/2014 6:16 PM CDT Body Mass Index 50.29 09/23/2014 6:16 PM CDT documented in this encounter Medications [...] Op Note - Provider, MD Tyler - 09/23/2014 12:00 AM CDT Patient: Karly Marques Reg No: [id number] U H #: [id number] Admit Dt.: 09/23/2014 : 1955 Pt Type: 200 Room No: 83869 Attending: Farzaneh Ramey MD, PHD Surgeon: Farzaneh Ramey MD, PHD Dictating: Farzaneh Ramey MD, PHD Service Dt: 09/23/2014 OPERATIVE REPORT ANESTHESIA: General. PREOPERATIVE DIAGNOSIS (ES): Left breast cancer. POSTOPERATIVE DIAGNOSIS (ES): Left breast cancer. NAME OF OPERATION: 1. Left modified radical mastectomy. 2. Right prophylactic mastectomy. INDICATIONS FOR PROCEDURE: The patient is an approximately 51-year-old female who was diagnosed with a multifocal left breast cancer as well as a positive lymph node. She was taken to the operating room for the above procedure. She received 2 grams of cefazolin and had ThromboGuard's placed. DESCRIPTION OF PROCEDURE: After informed consent was obtained, the patient was taken to the operating room and placed in supine position. After adequate general anesthesia and endotracheal intubation, the patient's chest and left arm were prepped and draped in standard sterile manner. This was after placing a Lara catheter. The left breast was addressed first. An elliptical incision was made above and below the nipple areolar complex and carried down through the subcutaneous tissues. Flaps were raised superiorly at the clavicle, medially to the sternum, inferior to the inframammary fold, and laterally to the latissimus dorsi. The breast was taken off of the pectoralis fascia. An axillary dissection was commenced by opening the clavipectoral fascia and identifying the axillary vein. The axillary vein was cleared from medial to lateral, taking care to preserve the long thoracic nerve, the thoracodorsal nerve, and the intercostal brachial nerve. The specimen was removed, oriented, and sent to pathology. The wound was irrigated with warm saline and checked for hemostasis. A drain was inserted through a separate incision site. The incision was closed with a running 2-0 Quill deep dermal suture and running 4-0 PDS subcuticular stitch. Next, gowns, gloves, and drapes were changed and attention was turned to the right side. An elliptical incision was made above and below the nipple areolar complex and carried down through the subcutaneous tissues. Flaps were raised superiorly to the clavicle, medially to the sternum, inferior to the inframammary fold, and laterally to the latissimus dorsi. The breast was taken off of the pectoralis fascia. The wound was irrigated with warm saline and checked for hemostasis. A drain was inserted through a separate incision site. The incision was closed as per the left side. The patient tolerated all portions of the procedure well. She was taken to the recovery room in stable condition. Please note that I was present for the critical portions of the procedure which was removal of the breast and the axillary node dissection. Dr. Sarah Guardado was immediately available for the opening and the closure. CONDITION ON DISCHARGE FROM OPERATING ROOM: Stable. Electronically Signed By Farzaneh Ramey MD, PHD 09/26/2014 10:02 A Farzaneh Ramey MD, PHD RLA/cheryl #[id number] Editing MT: TD: 09/24/2014 09:53:00 cc: Farzaneh Ramey MD, PHD documented in this encounter Plan of Treatment Not on file documented as of this encounter Procedures Procedure Name Priority Date/Time Associated Diagnosis Comments DISCHARGE LABORATORY CUMULATIVE REPORT 09/25/2014 BLOOD POTASSIUM, MIXED VENOUS Routine 09/24/2014 12:24 PM CDT BLOOD POTASSIUM, MIXED VENOUS Routine 09/24/2014 2:38 AM CDT PLASMA BASIC METABOLIC PANEL Routine 09/23/2014 11:27 PM CDT BLOOD CELL COUNT (CBC) Routine 09/23/2014 11:27 PM CDT BLOOD GLUCOSE, POC Routine 09/23/2014 3: 04 PM CDT BLOOD CHECK SAMPLE Routine 09/23/2014 10 :53 AM CDT BLOOD GLUCOSE, POC Routine 09/23/2014 8: 32 AM CDT BLOOD ABO, RH, INDIRECT AB SCREEN Routine 09/23/2014 8:29 AM CDT SURGICAL PATHOLOGY 09/23/2014 documented in this encounter Results * DISCHARGE LABORATORY CUMULATIVE REPORT (09/25/2014) Narrative 09/25/2014 Ordered by an unspecified provider. Historical Provider LAB BLOOD ORDERABLES Deann l Result * Blood potassium, mixed venous (09/24/2014 12:24 PM CDT) Potassium, bld 4.6 3.3 - 4.9 mmol/L HISTORICAL RESULTS Mixed venous blood 09/24/2014 12:24 PM CDT Anastasia Riley NP LAB BLOOD ORDERABLES Fin al Result Performing Organization Address City/[facility] de Phone Number HISTORICAL RESULTS * (ABNORMAL) Blood potassium, mixed venous (09/24/2014 2:38 AM CDT) Potassium, bld 5.3(H) 3.3 - 4.9 mmol/L HISTORICAL RESULTS Mixed venous blood 09/24/2014 2:38 AM CDT Melvin Dc MD LAB BLOOD ORDERABLES Fi nal Result Performing Organization Address City/[facility] de Phone Number HISTORICAL RESULTS * (ABNORMAL) Plasma basic metabolic panel (09/23/2014 11:27 PM CDT) Sodium 134(L) 135 - 145 mmol/L HISTORICAL RESULTS K, pl 5.3(H) 3.3 - 4.9 mmol/L HISTORICAL RESULTS Chloride 99 97 - 110 mmol/L HISTORICAL RESULTS CO2 26 22 - 32 mmol/L HISTORICAL RESULTS A. gap 9 0 - 16 mmol/L HISTORICAL RESULTS Glucose 159 70 - 199 mg/dl HISTORICAL RESULTS BUN 15 8 - 25 mg/dl HISTORICAL RESULTS Creatinine 0.73 0.60 - 1.10 mg/dl HISTORICAL RESULTS Calcium 9.0 8.6 - 10.3 mg/dl HISTORICAL RESULTS Plasma 09/23/2014 11:2 7 PM CDT Melvin Dc MD LAB BLOOD ORDERABLES Fi nal Result HISTORICAL RESULTS * (ABNORMAL) Blood cell count (CBC) (09/23/2014 11:27 PM CDT) WBC 15.3(H) 3.8 - 9.8 K/cumm HISTORICAL RESULTS RBC 3.78(L) 3.90 - 5.00 M/cumm HISTORICAL RESULTS Hgb 10.7(L) 12.1 - 15.1 g/dl HISTORICAL RESULTS Hct 33.3(L) 36.1 - 44.3 % HISTORICAL RESULTS MCV 88.2 80.0 - 97.6 fl HISTORICAL RESULTS MCH 28.3 26.7 - 33.7 pg HISTORICAL RESULTS MCHC 32.1(L) 32.7 - 35.5 g/dl HISTORICAL RESULTS Rdw 14.0 11.8 - 14.6 % HISTORICAL RESULTS Platelets 280 140 - 440 K/cumm HISTORICAL RESULTS MPV 8.6 6.8 - 10.4 fl HISTORICAL RESULTS Neutrophils, abs 13.0(H) 1.8 - 6.6 K/cumm HISTORICAL RESULTS Lymphocytes, abs 1.4 1.2 - 3.3 K/cumm HISTORICAL RESULTS Monocytes, absolute 0.9 0.2 - 1.2 K/cumm HISTORICAL RESULTS Eosinophils, abs 0.0 0.0 - 0.5 K/cumm HISTORICAL RESULTS Basophils, abs 0.0 0.0 - 0.2 K/cumm HISTORICAL RESULTS Neutrophils 85.2(H) 38.7 - 74.5 % HISTORICAL RESULTS Lymphocytes 8.8(L) 20.0 - 54.3 % HISTORICAL RESULTS Monos 6.0 4.3 - 13.5 % HISTORICAL RESULTS Eosinophils 0.0 0.0 - 6.0 % HISTORICAL RESULTS Basophils 0.0 0.0 - 3.0 % HISTORICAL RESULTS Blood specimen (specimen) 09/23/2014 11:27 PM CDT Melvin Dc MD LAB BLOOD ORDERABLES Fi nal Result HISTORICAL RESULTS * Blood glucose, POC (09/23/2014 3:04 PM CDT) Glucose, POC, bld 154 70 - 199 mg/dl HISTORICAL RESULTS Blood specimen (specimen) 09/23/2014 3:04 PM CDT Farzaneh Ramey MD PhD LAB BLOOD ORDERABLES Final Result Performing Organization Address [facility] Phone Number HISTORICAL RESULTS * Blood check sample (09/23/2014 10:53 AM CDT) ABO, Rho(D) O Positive HISTORI JOY RESULTS Blood specimen (specimen) 09/23/2014 10:53 AM CDT Farzaneh Ramey MD PhD LAB BLOOD ORDERABLES Final Result Performing Organization Address [facility] Phone Number HISTORICAL RESULTS * Blood glucose, POC (09/23/2014 8:32 AM CDT) Glucose, POC, bld 104 70 - 199 mg/dl HISTORICAL RESULTS Blood specimen (specimen) 09/23/2014 8:32 AM CDT Farzaneh Ramey MD PhD LAB BLOOD ORDERABLES Final Result Performing Organization Address [facility] Phone Number HISTORICAL RESULTS * Blood ABO, Rh, indirect ab screen (09/23/2014 8:29 AM CDT) ABO, Rho(D) O Positive HISTORI JOY RESULTS Dilcia, indirect Negative HISTORICAL RESULTS Blood specimen (specimen) 09/23/2014 8:29 AM CDT Farzaneh Ramey MD PhD LAB BLOOD ORDERABLES Final Result Performing Organization Address [facility] de Phone Number HISTORICAL RESULTS * Surgical pathology (09/23/2014) Narrative 09/23/2014 Ordered by an unspecified provider. Historical Provider MD LAB PATHOLOGY ORDERABLES Final Result documented in this encounter Visit Diagnoses Diagnosis Malignant neoplasm of breast (female) (HCC) Malignant neoplasm of breast (female), unspecified site Prophylactic breast removal Essential hypertension Unspecified essential hypertension Type 2 or unspecified type diabetes mellitus Obstructive sleep apnea Obstructive sleep apnea (adult) (pediatric) Diaphragmatic hernia Diaphragmatic hernia without mention of obstruction or gangrene Osteoarthrosis Osteoarthrosis, unspecified whether generalized or localized, unspecified site Morbid obesity (HCC) Morbid obesity Adult body mass index 50.0-59.9 (HCC) Personal history of pulmonary embolism Personal history of tobacco use, presenting hazards to health documented in this encounter Care Teams Aids Social Worker Relationship Specialty Start Date End Date Antoinette Zhu MD [address] [address] PCP - General 08/01/13 07/26/16 documented as of this encounter
--- OUTSIDE RECORDS SUMMARY | 2024-04-26 04:33 | XMS_ITS | Encounter Summary ---
Author Organization [facility] Facility Care Team Providers Care Ceramic Engineer Name Role Phone Antoinette Zhu MD Primary Care Provider [phone] Encounter Details Date Type Department Care Team (Late st Contact Info) Description 09/10/2014 Hospital Encounter [facility] Aft, Farzaneh Bell MD PhD [address] [place] [address] Malignant neoplasm of breast (female) (HCC) Social [...] Procedure Name Priority Date/Time Associated Diagnosis Comments DIAGNOSTIC MAMMOGRAM 2D LEFT Routine 09/10/2014 1:51 PM CDT US GUIDED LOCALIZATION BREAST Routine 09/10/2014 1:43 PM CDT US GUIDED LOCALIZATION BREAST EACH ADDITIONAL Routine 09/10/2014 1:43 PM CDT DIAGNOSTIC MAMMOGRAM LEFT W LUDIN Routine 09/10/2014 12:12 PM CDT DIGITAL MAMMOGRAPHY, UNILATERAL Routine 09/10/2014 12:03 PM CDT US BREAST LIMITED Routine 09/10/2014 10: 59 AM CDT SURGICAL PATHOLOGY 09/10/2014 documented in this encounter Results * DIAGNOSTIC MAMMOGRAM 2D LEFT (09/10/2014 1:51 PM CDT) Anatomical Region Laterality Modality Breast Left Mammography 09/10/2014 1:51 PM CDT Narrative 09/29/2014 9:22 AM CDT SHANTHI TOSCANO M.D. FINAL REPORT The radiology attending physician has personally reviewed this study, and has reviewed and/or edited this written report and agrees with it. ACC# ??Date Time ??Exam [id number] September 10, 2014 13:43:00 [facility] [id number] Breast Bx Incl Loc Sono L [id number] September 10, 2014 13:43:00 [facility] 39711 Breast Bx Sono ea addl L [id number] September 10, 2014 13:51:00 [facility] [id number] Mamm Unilat Post Bx Films L ?? Technologist(s): Preeti Garcia; ; EXAMINATION: ?? ULTRASOUND-GUIDED CORE BIOPSIES OF THE LEFT BREAST (TWO SEPARATE TARGETS), PLACEMENT OF TWO TISSUE MARKER CLIPS, AND UNILATERAL DIGITAL MAMMOGRAM HISTORY: 59-year-old woman with known left breast malignancy and 2 additional suspicious masses seen in the outer LEFT breast at 2:30 position 8 cm from the nipple and 3:00 position 3 cm from the nipple. PROCEDURE AND FINDINGS: The risks and potential benefits of the procedure were discussed with the patient and written informed consent was obtained. LEFT BREAST TARGET 1: ??Attention was first directed to the target of interest in the LEFT breast 2:30 and 8 cm from the nipple. ??After sterile preparation of the skin, 1% lidocaine was utilized for local anesthesia. ?? A small skin incision was made with a #11 scalpel blade. ??A 14-gauge spring-loaded biopsy device needle was then advanced through the skin incision to the edge of the lesion of interest from lateral approach utilizing sonographic guidance. A total of 3 tissue cores were obtained through the lesion. An UltraClip wing-shaped tissue marker clip was then placed at the biopsy site. Hemostasis was achieved. The tissue cores were submitted to surgical pathology in formalin for histologic analysis labeled LEFT breast 2:30 8cm from the nipple. LEFT BREAST TARGET 2: ??Attention was then directed to the target of interest in the left breast at 3:00 and 3 cm from the nipple. ??After sterile preparation of the skin, 1% lidocaine was utilized for local anesthesia. A small skin incision was made with a #11 scalpel blade. ??A 14-gauge spring-loaded biopsy device needle was then advanced through the skin incision to the edge of the lesion of interest from a lateral approach utilizing sonographic guidance. A total of 3 tissue cores were obtained through the lesion. A Senomark tissue marker clip was then placed at the biopsy site. Hemostasis was achieved. The tissue cores were submitted to surgical pathology in formalin for histologic analysis labeled LEFT breast 3:00 and 3 cm from the nipple. Sterile bandages and ice packs were applied. The patient tolerated the procedure well and there is no evidence of significant immediate complication. The patient was given verbal as well as written post procedural instructions prior to release from the department. A two-view unilateral LEFT digital mammogram was obtained post procedure and this demonstrates that the two tissue marker clips are in the expected positions. The attending radiologist, Dr. Toscano, was present throughout the entire procedure. Dr. Bonds (diagnostic residential recycle driver) also participated in this examination. IMPRESSION: ?Successful ultrasound-guided core needle biopsies of both areas of interest in the LEFT breast. ??Pathology pending. ADDENDUM #1 by Isamar Soriano RN for Dr. 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 ?? Microcalcifications, associated with invasive carcinoma and ductal carcinoma in-situ, were identified. ??This is a malignant finding and surgical intervention is required. 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 ?? Microcalcifications, associated with invasive carcinoma were identified. ?? This is a malignant finding and surgical intervention is required. The patient will be notified of the biopsy results and recommendations by the referring physician, Dr. Farzaneh Ramey, who will plan surgical management. Requested By: Dictated By: ?? WILLIAMS BONDS M.D. ??on Sep 10 2014 ??3:39P This document has been electronically signed by: SHANTHI TOSCANO M.D. on Sep 10 2014 ??3:45P on Sep 16 2014 ??2:47P This Addendum has been electronically signed by: SHANTHI TOSCANO M.D. on Sep?2014 ??9:22A [id number] Procedure Note Provider, Historical, MD - 08/12/2016 SHANTHI TOSCANO M.D. FINAL REPORT The radiology attending physician has personally reviewed this study, and has reviewed and/or edited this written report and agrees with it. ACC# Date Time Exam [id number] September 10, 2014 13:43:00 [facility] 71633 Breast Bx Incl Loc Sono L [id number] September 10, 2014 13:43:00 [facility] 40316 Breast Bx Sono ea addl L [id number] September 10, 2014 13:51:00 [facility] [id number] Mamm Unilat Post Bx Films L Technologist(s): Preeti Garcia; ; EXAMINATION: ULTRASOUND-GUIDED CORE BIOPSIES OF THE LEFT BREAST (TWO SEPARATE TARGETS), PLACEMENT OF TWO TISSUE MARKER CLIPS, AND UNILATERAL DIGITAL MAMMOGRAM HISTORY: 59-year-old woman with known left breast malignancy and 2 additional suspicious masses seen in the outer LEFT breast at 2:30 position 8 cm from the nipple and 3:00 position 3 cm from the nipple. PROCEDURE AND FINDINGS: The risks and potential benefits of the procedure were discussed with the patient and written informed consent was obtained. LEFT BREAST TARGET 1: Attention was first directed to the target of interest in the LEFT breast 2:30 and 8 cm from the nipple. After sterile preparation of the skin, 1% lidocaine was utilized for local anesthesia. A small skin incision was made with a #11 scalpel blade. A 14-gauge spring-loaded biopsy device needle was then advanced through the skin incision to the edge of the lesion of interest from lateral approach utilizing sonographic guidance. A total of 3 tissue cores were obtained through the lesion. An UltraClip wing-shaped tissue marker clip was then placed at the biopsy site. Hemostasis was achieved. The tissue cores were submitted to surgical pathology in formalin for histologic analysis labeled LEFT breast 2:30 8cm from the nipple. LEFT BREAST TARGET 2: Attention was then directed to the target of interest in the left breast at 3:00 and 3 cm from the nipple. After sterile preparation of the skin, 1% lidocaine was utilized for local anesthesia. A small skin incision was made with a #11 scalpel blade. A 14-gauge spring-loaded biopsy device needle was then advanced through the skin incision to the edge of the lesion of interest from a lateral approach utilizing sonographic guidance. A total of 3 tissue cores were obtained through the lesion. A Senomark tissue marker clip was then placed at the biopsy site. Hemostasis was achieved. The tissue cores were submitted to surgical pathology in formalin for histologic analysis labeled LEFT breast 3:00 and 3 cm from the nipple. Sterile bandages and ice packs were applied. The patient tolerated the procedure well and there is no evidence of significant immediate complication. The patient was given verbal as well as written post procedural instructions prior to release from the department. A two-view unilateral LEFT digital mammogram was obtained post procedure and this demonstrates that the two tissue marker clips are in the expected positions. The attending radiologist, Dr. Toscano, was present throughout the entire procedure. Dr. Bonds (diagnostic residential recycle driver) also participated in this examination. IMPRESSION: Successful ultrasound-guided core needle biopsies of both areas of interest in the LEFT breast. Pathology pending. ADDENDUM #1 by Isamar Soriano RN for Dr. 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 Microcalcifications, associated with invasive carcinoma and ductal carcinoma in-situ, were identified. This is a malignant finding and surgical intervention is required. 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 Microcalcifications, associated with invasive carcinoma were identified. This is a malignant finding and surgical intervention is required. The patient will be notified of the biopsy results and recommendations by the referring physician, Dr. Farzaneh Ramey, who will plan surgical management. Requested By: Dictated By: WILLIAMS BONDS M.D. on Sep 10 2014 3:39P This document has been electronically signed by: SHANTHI TOSCANO M.D. on Sep 10 2014 3:45P on Sep 16 2014 2:47P This Addendum has been electronically signed by: SHANTHI TOSCANO M.D. on Sep 29 2014 9:22A [id number] us Historical Provider MD GARCIA MAMMO PROCEDURES Deann l Result * US Guided Localization Breast (09/10/2014 1:43 PM CDT) Anatomical Region Laterality Modality Breast N/A Ultrasound 09/10/2014 1:43 PM CDT Narrative 09/29/2014 9:22 AM CDT SHANTHI TOSCANO M.D. FINAL REPORT The radiology attending physician has personally reviewed this study, and has reviewed and/or edited this written report and agrees with it. ACC# ??Date Time ??Exam [id number] September 10, 2014 13:43:00 [facility] 02604 Breast Bx Incl Loc Sono L [id number] September 10, 2014 13:43:00 [facility] 02727 Breast Bx Sono ea addl L [id number] September 10, 2014 13:51:00 [facility] [id number] Mamm Unilat Post Bx Films L ?? Technologist(s): Preeti Garcia; ; EXAMINATION: ?? ULTRASOUND-GUIDED CORE BIOPSIES OF THE LEFT BREAST (TWO SEPARATE TARGETS), PLACEMENT OF TWO TISSUE MARKER CLIPS, AND UNILATERAL DIGITAL MAMMOGRAM HISTORY: 59-year-old woman with known left breast malignancy and 2 additional suspicious masses seen in the outer LEFT breast at 2:30 position 8 cm from the nipple and 3:00 position 3 cm from the nipple. PROCEDURE AND FINDINGS: The risks and potential benefits of the procedure were discussed with the patient and written informed consent was obtained. LEFT BREAST TARGET 1: ??Attention was first directed to the target of interest in the LEFT breast 2:30 and 8 cm from the nipple. ??After sterile preparation of the skin, 1% lidocaine was utilized for local anesthesia. ?? A small skin incision was made with a #11 scalpel blade. ??A 14-gauge spring-loaded biopsy device needle was then advanced through the skin incision to the edge of the lesion of interest from lateral approach utilizing sonographic guidance. A total of 3 tissue cores were obtained through the lesion. An UltraClip wing-shaped tissue marker clip was then placed at the biopsy site. Hemostasis was achieved. The tissue cores were submitted to surgical pathology in formalin for histologic analysis labeled LEFT breast 2:30 8cm from the nipple. LEFT BREAST TARGET 2: ??Attention was then directed to the target of interest in the left breast at 3:00 and 3 cm from the nipple. ??After sterile preparation of the skin, 1% lidocaine was utilized for local anesthesia. A small skin incision was made with a #11 scalpel blade. ??A 14-gauge spring-loaded biopsy device needle was then advanced through the skin incision to the edge of the lesion of interest from a lateral approach utilizing sonographic guidance. A total of 3 tissue cores were obtained through the lesion. A Senomark tissue marker clip was then placed at the biopsy site. Hemostasis was achieved. The tissue cores were submitted to surgical pathology in formalin for histologic analysis labeled LEFT breast 3:00 and 3 cm from the nipple. Sterile bandages and ice packs were applied. The patient tolerated the procedure well and there is no evidence of significant immediate complication. The patient was given verbal as well as written post procedural instructions prior to release from the department. A two-view unilateral LEFT digital mammogram was obtained post procedure and this demonstrates that the two tissue marker clips are in the expected positions. The attending radiologist, Dr. Toscano, was present throughout the entire procedure. Dr. Bonds (diagnostic residential recycle driver) also participated in this examination. IMPRESSION: ?Successful ultrasound-guided core needle biopsies of both areas of interest in the LEFT breast. ??Pathology pending. ADDENDUM #1 by Isamar Soriano RN for Dr. 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 ?? Microcalcifications, associated with invasive carcinoma and ductal carcinoma in-situ, were identified. ??This is a malignant finding and surgical intervention is required. 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 ?? Microcalcifications, associated with invasive carcinoma were identified. ?? This is a malignant finding and surgical intervention is required. The patient will be notified of the biopsy results and recommendations by the referring physician, Dr. Farzaneh Ramey, who will plan surgical management. Requested By: Dictated By: ?? WILLIAMS BONDS M.D. ??on Sep 10 2014 ??3:39P This document has been electronically signed by: SHANTHI TOSCANO M.D. on Sep 10 2014 ??3:45P on Sep 16 2014 ??2:47P This Addendum has been electronically signed by: SHANTHI TOSCANO M.D. on Sep ??2014 ??9:22A [id number] Procedure Note Provider, MD Tyler - 08/12/2016 SHANTHI TOSCANO M.D. FINAL REPORT The radiology attending physician has personally reviewed this study, and has reviewed and/or edited this written report and agrees with it. ACC# Date Time Exam [id number] September 10, 2014 13:43:00 [facility] [address]341 Breast Bx Incl Loc Sono L [id number] September 10, 2014 13:43:00 [facility] 79795 Breast Bx Sono ea addl L [id number] September 10, 2014 13:51:00 [facility] [id number] Mamm Unilat Post Bx Films L Technologist(s): Preeti Garcia; ; EXAMINATION: ULTRASOUND-GUIDED CORE BIOPSIES OF THE LEFT BREAST (TWO SEPARATE TARGETS), PLACEMENT OF TWO TISSUE MARKER CLIPS, AND UNILATERAL DIGITAL MAMMOGRAM HISTORY: 59-year-old woman with known left breast malignancy and 2 additional suspicious masses seen in the outer LEFT breast at 2:30 position 8 cm from the nipple and 3:00 position 3 cm from the nipple. PROCEDURE AND FINDINGS: The risks and potential benefits of the procedure were discussed with the patient and written informed consent was obtained. LEFT BREAST TARGET 1: Attention was first directed to the target of interest in the LEFT breast 2:30 and 8 cm from the nipple. After sterile preparation of the skin, 1% lidocaine was utilized for local anesthesia. A small skin incision was made with a #11 scalpel blade. A 14-gauge spring-loaded biopsy device needle was then advanced through the skin incision to the edge of the lesion of interest from lateral approach utilizing sonographic guidance. A total of 3 tissue cores were obtained through the lesion. An UltraClip wing-shaped tissue marker clip was then placed at the biopsy site. Hemostasis was achieved. The tissue cores were submitted to surgical pathology in formalin for histologic analysis labeled LEFT breast 2:30 8cm from the nipple. LEFT BREAST TARGET 2: Attention was then directed to the target of interest in the left breast at 3:00 and 3 cm from the nipple. After sterile preparation of the skin, 1% lidocaine was utilized for local anesthesia. A small skin incision was made with a #11 scalpel blade. A 14-gauge spring-loaded biopsy device needle was then advanced through the skin incision to the edge of the lesion of interest from a lateral approach utilizing sonographic guidance. A total of 3 tissue cores were obtained through the lesion. A Senomark tissue marker clip was then placed at the biopsy site. Hemostasis was achieved. The tissue cores were submitted to surgical pathology in formalin for histologic analysis labeled LEFT breast 3:00 and 3 cm from the nipple. Sterile bandages and ice packs were applied. The patient tolerated the procedure well and there is no evidence of significant immediate complication. The patient was given verbal as well as written post procedural instructions prior to release from the department. A two-view unilateral LEFT digital mammogram was obtained post procedure and this demonstrates that the two tissue marker clips are in the expected positions. The attending radiologist, Dr. Toscano, was present throughout the entire procedure. Dr. Bonds (diagnostic residential recycle driver) also participated in this examination. IMPRESSION: Successful ultrasound-guided core needle biopsies of both areas of interest in the LEFT breast. Pathology pending. ADDENDUM #1 by Isamar Soriano RN for Dr. 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 Microcalcifications, associated with invasive carcinoma and ductal carcinoma in-situ, were identified. This is a malignant finding and surgical intervention is required. 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 Microcalcifications, associated with invasive carcinoma were identified. This is a malignant finding and surgical intervention is required. The patient will be notified of the biopsy results and recommendations by the referring physician, Dr. Farzaneh Ramey, who will plan surgical management. Requested By: Dictated By: WILLIAMS BONDS M.D. on Sep 10 2014 3:39P This document has been electronically signed by: SHANTHI TOSCANO M.D. on Sep 10 2014 3:45P on Sep 16 2014 2:47P This Addendum has been electronically signed by: SHANHTI TOSCANO M.D. on Sep 29 2014 9:22A [id number] us Historical Provider MD GARCIA US PROCEDURES Final R esult * US GUIDED LOCALIZATION BREAST EACH ADDITIONAL (09/10/2014 1:43 PM CDT) Anatomical Region Laterality Modality Breast N/A Ultrasound 09/10/2014 1:43 PM CDT Narrative 09/29/2014 9:22 AM CDT SHANTHI TOSCANO M.D. FINAL REPORT The radiology attending physician has personally reviewed this study, and has reviewed and/or edited this written report and agrees with it. ACC# ??Date Time ??Exam [id number] September 10, 2014 13:43:00 [facility] 33563 Breast Bx Incl Loc Sono L [id number] September 10, 2014 13:43:00 [facility] 84995 Breast Bx Sono ea addl L [id number] September 10, 2014 13:51:00 [facility] [id number] Mamm Unilat Post Bx Films L ?? Technologist(s): Preeti Garcia; ; EXAMINATION: ?? ULTRASOUND-GUIDED CORE BIOPSIES OF THE LEFT BREAST (TWO SEPARATE TARGETS), PLACEMENT OF TWO TISSUE MARKER CLIPS, AND UNILATERAL DIGITAL MAMMOGRAM HISTORY: 59-year-old woman with known left breast malignancy and 2 additional suspicious masses seen in the outer LEFT breast at 2:30 position 8 cm from the nipple and 3:00 position 3 cm from the nipple. PROCEDURE AND FINDINGS: The risks and potential benefits of the procedure were discussed with the patient and written informed consent was obtained. LEFT BREAST TARGET 1: ??Attention was first directed to the target of interest in the LEFT breast 2:30 and 8 cm from the nipple. ??After sterile preparation of the skin, 1% lidocaine was utilized for local anesthesia. ?? A small skin incision was made with a #11 scalpel blade. ??A 14-gauge spring-loaded biopsy device needle was then advanced through the skin incision to the edge of the lesion of interest from lateral approach utilizing sonographic guidance. A total of 3 tissue cores were obtained through the lesion. An UltraClip wing-shaped tissue marker clip was then placed at the biopsy site. Hemostasis was achieved. The tissue cores were submitted to surgical pathology in formalin for histologic analysis labeled LEFT breast 2:30 8cm from the nipple. LEFT BREAST TARGET 2: ??Attention was then directed to the target of interest in the left breast at 3:00 and 3 cm from the nipple. ??After sterile preparation of the skin, 1% lidocaine was utilized for local anesthesia. A small skin incision was made with a #11 scalpel blade. ??A 14-gauge spring-loaded biopsy device needle was then advanced through the skin incision to the edge of the lesion of interest from a lateral approach utilizing sonographic guidance. A total of 3 tissue cores were obtained through the lesion. A Senomark tissue marker clip was then placed at the biopsy site. Hemostasis was achieved. The tissue cores were submitted to surgical pathology in formalin for histologic analysis labeled LEFT breast 3:00 and 3 cm from the nipple. Sterile bandages and ice packs were applied. The patient tolerated the procedure well and there is no evidence of significant immediate complication. The patient was given verbal as well as written post procedural instructions prior to release from the department. A two-view unilateral LEFT digital mammogram was obtained post procedure and this demonstrates that the two tissue marker clips are in the expected positions. The attending radiologist, Dr. Toscano, was present throughout the entire procedure. Dr. Bonds (diagnostic residential recycle driver) also participated in this examination. IMPRESSION: ?Successful ultrasound-guided core needle biopsies of both areas of interest in the LEFT breast. ??Pathology pending. ADDENDUM #1 by Isamar Soriano, NURIS for Dr. 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 ?? Microcalcifications, associated with invasive carcinoma and ductal carcinoma in-situ, were identified. ??This is a malignant finding and surgical intervention is required. 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 ?? Microcalcifications, associated with invasive carcinoma were identified. ?? This is a malignant finding and surgical intervention is required. The patient will be notified of the biopsy results and recommendations by the referring physician, Dr. Farzaneh Ramey, who will plan surgical management. Requested By: Dictated By: ?? WILLIAMS BONDS M.D. ??on Sep 10 2014 ??3:39P This document has been electronically signed by: SHANTHI TOSCANO M.D. on Sep 10 2014 ??3:45P on Sep 16 2014 ??2:47P This Addendum has been electronically signed by: SHANTHI TOCSANO M.D. on Sep ??2014 ??9:22A [id number] Procedure Note Provider, MD Tyler - 08/12/2016 SHANTHI TOSCANO M.D. FINAL REPORT The radiology attending physician has personally reviewed this study, and has reviewed and/or edited this written report and agrees with it. ACC# Date Time Exam [id number] September 10, 2014 13:43:00 [facility] 43942 Breast Bx Incl Loc Sono L [id number] September 10, 2014 13:43:00 [facility] 13004 Breast Bx Sono ea addl L [id number] September 10, 2014 13:51:00 [facility] [id number] Mamm Unilat Post Bx Films L Technologist(s): Preeti Garcia; ; EXAMINATION: ULTRASOUND-GUIDED CORE BIOPSIES OF THE LEFT BREAST (TWO SEPARATE TARGETS), PLACEMENT OF TWO TISSUE MARKER CLIPS, AND UNILATERAL DIGITAL MAMMOGRAM HISTORY: 59-year-old woman with known left breast malignancy and 2 additional suspicious masses seen in the outer LEFT breast at 2:30 position 8 cm from the nipple and 3:00 position 3 cm from the nipple. PROCEDURE AND FINDINGS: The risks and potential benefits of the procedure were discussed with the patient and written informed consent was obtained. LEFT BREAST TARGET 1: Attention was first directed to the target of interest in the LEFT breast 2:30 and 8 cm from the nipple. After sterile preparation of the skin, 1% lidocaine was utilized for local anesthesia. A small skin incision was made with a #11 scalpel blade. A 14-gauge spring-loaded biopsy device needle was then advanced through the skin incision to the edge of the lesion of interest from lateral approach utilizing sonographic guidance. A total of 3 tissue cores were obtained through the lesion. An UltraClip wing-shaped tissue marker clip was then placed at the biopsy site. Hemostasis was achieved. The tissue cores were submitted to surgical pathology in formalin for histologic analysis labeled LEFT breast 2:30 8cm from the nipple. LEFT BREAST TARGET 2: Attention was then directed to the target of interest in the left breast at 3:00 and 3 cm from the nipple. After sterile preparation of the skin, 1% lidocaine was utilized for local anesthesia. A small skin incision was made with a #11 scalpel blade. A 14-gauge spring-loaded biopsy device needle was then advanced through the skin incision to the edge of the lesion of interest from a lateral approach utilizing sonographic guidance. A total of 3 tissue cores were obtained through the lesion. A Senomark tissue marker clip was then placed at the biopsy site. Hemostasis was achieved. The tissue cores were submitted to surgical pathology in formalin for histologic analysis labeled LEFT breast 3:00 and 3 cm from the nipple. Sterile bandages and ice packs were applied. The patient tolerated the procedure well and there is no evidence of significant immediate complication. The patient was given verbal as well as written post procedural instructions prior to release from the department. A two-view unilateral LEFT digital mammogram was obtained post procedure and this demonstrates that the two tissue marker clips are in the expected positions. The attending radiologist, Dr. Toscano, was present throughout the entire procedure. Dr. Bonds (diagnostic residential recycle driver) also participated in this examination. IMPRESSION: Successful ultrasound-guided core needle biopsies of both areas of interest in the LEFT breast. Pathology pending. ADDENDUM #1 by Isamar Soriano RN for Dr. 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 Microcalcifications, associated with invasive carcinoma and ductal carcinoma in-situ, were identified. This is a malignant finding and surgical intervention is required. 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 Microcalcifications, associated with invasive carcinoma were identified. This is a malignant finding and surgical intervention is required. The patient will be notified of the biopsy results and recommendations by the referring physician, Dr. Farzaneh Ramey, who will plan surgical management. Requested By: Dictated By: WILLAIMS BONDS M.D. on Sep 10 2014 3:39P This document has been electronically signed by: SHANTHI TOSCANO M.D. on Sep 10 2014 3:45P on Sep 16 2014 2:47P This Addendum has been electronically signed by: SHANTHI TOSCANO M.D. on Sep 29 2014 9:22A [id number] us Historical Provider MD GARCIA MAMMO PROCEDURES Deann l Result * Diagnostic Mammogram Left W [place] (09/10/2014 12:12 PM CDT) Anatomical Region Laterality Modality Breast Left Mammography 09/10/2014 12:1 2 PM CDT Narrative 09/10/2014 1:15 PM CDT BEVERLEY MCWILLIAMS MD, PHD FINAL REPORT ACC# ??Date Time ??Exam [id number] September 10, 2014 12:03:00 [facility] 41294 Diag Mammogram Unilateral L ?? Technologist(s): Grisel Godwin; ; [id number] September 10, 2014 10:59:00 [facility] 66064 Breast US unilateral, ltd L [id number] September 10, 2014 12:12:00 [facility] [address]162 DigBreast [place] uni L EXAMINATION: ?? LEFT FULL FIELD DIGITAL DIAGNOSTIC MAMMOGRAM WITH CAD, DIGITAL LEFT BREAST TOMOSYNTHESIS, AND LEFT BREAST SONOGRAM HISTORY: 59-year-old woman with known left breast malignancy, with an additional suspicious mass seen in the outer left breast. Additional evaluation is requested to evaluate for extent of disease. SONOGRAM FINDINGS: ??Directed sonogram of the outer left breast was performed. ??There is an abnormally enlarged left axillary lymph node, in keeping with known metastatic disease. At the 2:30 position, 8 cm from the nipple, there is a 1 cm x 0.7 cm x 0.9 cm irregular hypoechoic mass with posterior acoustic shadowing, the likely correlate for the irregular mass of concern. ??In addition, at the 3 o'clock position, 3 cm from the nipple, there is a 6 mm hypoechoic, solid mass, approximately 4 cm from the previously biopsied mass. ??A triangular skin marker was placed over the 1 cm mass at 2:30, and a round skin BB marker placed over the 6 mm mass at 3:00. ??Additional mammographic views obtained. MAMMOGRAM TECHNIQUE: Additional views of the left breast were obtained utilizing full field digital mammography. Digital breast tomosynthesis was performed and reviewed as a part of this examination. COMPARISON: 07/21/2014, 07/07/2014, 07/01/2014 BREAST PARENCHYMAL COMPOSITION: There are scattered areas of fibroglandular density. MAMMOGRAM FINDINGS: ?? The triangular skin BB marker co-localizes with the spiculated mass in the upper outer left breast at mid to posterior depth. ??The round skin BB marker is seen more anteriorly, and corresponds to an additional, irregular mass, best seen on mediolateral oblique tomosynthesis sequence image #7. ??There is a ribbon shaped tissue marker clip in the known, biopsied malignancy. IMPRESSION: ?? 1) There is a 1 cm spiculated mass in the slightly upper outer left breast, 2:30 position, concerning for additional focus of malignancy. Tissue sampling is recommended the ultrasound core needle biopsy; the patient scheduled to undergo this procedure later today. 2. There is a 6 mm mass at the 3 o'clock position of the left breast, closer to the nipple; this may represent sequela from recent biopsy versus a third focus of malignancy. Tissue sampling of this mass is also recommended for further evaluation. Again, the patient scheduled to undergo this exam later today. OVERALL FINAL ASSESSMENT: BI-RADS Category 5: Highly suggestive of malignancy. ??These findings were discussed with Dr. Ramey by Dr. Mcwilliams on 09/10/2014 at approximately 12:30 p.m. Requested By: Dictated By: ?? BEVERLEY MCWILLIAMS MD, PHD ??on Sep 10 2014 ??1:15P This document has been electronically signed by: BEVERLEY MCWILLIAMS MD, PHD on Sep 10 2014 ??1:15P [id number] Procedure Note Provider, MD Tyler - 08/12/2016 BEVERLEY MCWILLIAMS MD, PHD FINAL REPORT ACC# Date Time Exam [id number] September 10, 2014 12:03:00 [facility] 41994 Diag Mammogram Unilateral L Technologist(s): Grisel Godwin; ; [id number] September 10, 2014 10:59:00 [facility] 35557 Breast US unilateral, ltd L [id number] September 10, 2014 12:12:00 [facility] [address]156 DigBreast [place] uni L EXAMINATION: LEFT FULL FIELD DIGITAL DIAGNOSTIC MAMMOGRAM WITH CAD, DIGITAL LEFT BREAST TOMOSYNTHESIS, AND LEFT BREAST SONOGRAM HISTORY: 59-year-old woman with known left breast malignancy, with an additional suspicious mass seen in the outer left breast. Additional evaluation is requested to evaluate for extent of disease. SONOGRAM FINDINGS: Directed sonogram of the outer left breast was performed. There is an abnormally enlarged left axillary lymph node, in keeping with known metastatic disease. At the 2:30 position, 8 cm from the nipple, there is a 1 cm x 0.7 cm x 0.9 cm irregular hypoechoic mass with posterior acoustic shadowing, the likely correlate for the irregular mass of concern. In addition, at the 3 o'clock position, 3 cm from the nipple, there is a 6 mm hypoechoic, solid mass, approximately 4 cm from the previously biopsied mass. A triangular skin marker was placed over the 1 cm mass at 2:30, and a round skin BB marker placed over the 6 mm mass at 3:00. Additional mammographic views obtained. MAMMOGRAM TECHNIQUE: Additional views of the left breast were obtained utilizing full field digital mammography. Digital breast tomosynthesis was performed and reviewed as a part of this examination. COMPARISON: 07/21/2014, 07/07/2014, 07/01/2014 BREAST PARENCHYMAL COMPOSITION: There are scattered areas of fibroglandular density. MAMMOGRAM FINDINGS: The triangular skin BB marker co-localizes with the spiculated mass in the upper outer left breast at mid to posterior depth. The round skin BB marker is seen more anteriorly, and corresponds to an additional, irregular mass, best seen on mediolateral oblique tomosynthesis sequence image #7. There is a ribbon shaped tissue marker clip in the known, biopsied malignancy. IMPRESSION: 1) There is a 1 cm spiculated mass in the slightly upper outer left breast, 2:30 position, concerning for additional focus of malignancy. Tissue sampling is recommended the ultrasound core needle biopsy; the patient scheduled to undergo this procedure later today. 2. There is a 6 mm mass at the 3 o'clock position of the left breast, closer to the nipple; this may represent sequela from recent biopsy versus a third focus of malignancy. Tissue sampling of this mass is also recommended for further evaluation. Again, the patient scheduled to undergo this exam later today. OVERALL FINAL ASSESSMENT: BI-RADS Category 5: Highly suggestive of malignancy. These findings were discussed with Dr. Ramey by Dr. Mcwilliams on 09/10/2014 at approximately 12:30 p.m. Requested By: Dictated By: BEVERLEY MCWILLIAMS MD, PHD on Sep 10 2014 1:15P This document has been electronically signed by: BEVERLEY MCWILLIAMS MD, PHD on Sep 10 2014 1:15P [id number] us Historical Provider MD GARCIA MAMMO PROCEDURES Deann l Result * DIGITAL MAMMOGRAPHY, UNILATERAL (09/10/2014 12:03 PM CDT) Anatomical Region Laterality Modality Breast Mammography 09/10/2014 12:0 3 PM CDT Narrative 09/10/2014 1:15 PM CDT BEVERLEY MCWILLIAMS MD, PHD FINAL REPORT ACC# ??Date Time ??Exam [id number] September 10, 2014 12:03:00 [facility] 57114 Diag Mammogram Unilateral L ?? Technologist(s): Grisel Godwin; ; [id number] September 10, 2014 10:59:00 [facility] 33164 Breast US unilateral, ltd L [id number] September 10, 2014 12:12:00 [facility] 52007 DigBreast [place] uni L EXAMINATION: ?? LEFT FULL FIELD DIGITAL DIAGNOSTIC MAMMOGRAM WITH CAD, DIGITAL LEFT BREAST TOMOSYNTHESIS, AND LEFT BREAST SONOGRAM HISTORY: 59-year-old woman with known left breast malignancy, with an additional suspicious mass seen in the outer left breast. Additional evaluation is requested to evaluate for extent of disease. SONOGRAM FINDINGS: ??Directed sonogram of the outer left breast was performed. ??There is an abnormally enlarged left axillary lymph node, in keeping with known metastatic disease. At the 2:30 position, 8 cm from the nipple, there is a 1 cm x 0.7 cm x 0.9 cm irregular hypoechoic mass with posterior acoustic shadowing, the likely correlate for the irregular mass of concern. ??In addition, at the 3 o'clock position, 3 cm from the nipple, there is a 6 mm hypoechoic, solid mass, approximately 4 cm from the previously biopsied mass. ??A triangular skin marker was placed over the 1 cm mass at 2:30, and a round skin BB marker placed over the 6 mm mass at 3:00. ??Additional mammographic views obtained. MAMMOGRAM TECHNIQUE: Additional views of the left breast were obtained utilizing full field digital mammography. Digital breast tomosynthesis was performed and reviewed as a part of this examination. COMPARISON: 07/21/2014, 07/07/2014, 07/01/2014 BREAST PARENCHYMAL COMPOSITION: There are scattered areas of fibroglandular density. MAMMOGRAM FINDINGS: ?? The triangular skin BB marker co-localizes with the spiculated mass in the upper outer left breast at mid to posterior depth. ??The round skin BB marker is seen more anteriorly, and corresponds to an additional, irregular mass, best seen on mediolateral oblique tomosynthesis sequence image #7. ??There is a ribbon shaped tissue marker clip in the known, biopsied malignancy. IMPRESSION: ?? 1) There is a 1 cm spiculated mass in the slightly upper outer left breast, 2:30 position, concerning for additional focus of malignancy. Tissue sampling is recommended the ultrasound core needle biopsy; the patient scheduled to undergo this procedure later today. 2. There is a 6 mm mass at the 3 o'clock position of the left breast, closer to the nipple; this may represent sequela from recent biopsy versus a third focus of malignancy. Tissue sampling of this mass is also recommended for further evaluation. Again, the patient scheduled to undergo this exam later today. OVERALL FINAL ASSESSMENT: BI-RADS Category 5: Highly suggestive of malignancy. ??These findings were discussed with Dr. Ramey by Dr. Mcwilliams on 09/10/2014 at approximately 12:30 p.m. Requested By: Dictated By: ?? BEVERLEY MCWILLIAMS MD, PHD ??on Sep 10 2014 ??1:15P This document has been electronically signed by: BEVERLEY MCWILLIAMS MD, PHD on Sep 10 2014 ??1:15P [id number] Procedure Note Provider, MD Tyler - 08/12/2016 BEVERLEY MCWILLIAMS MD, PHD FINAL REPORT ACC# Date Time Exam [id number] September 10, 2014 12:03:00 [facility] 34478 Diag Mammogram Unilateral L Technologist(s): Grisel Godwin; ; [id number] September 10, 2014 10:59:00 [facility] 21889 Breast US unilateral, ltd L [id number] September 10, 2014 12:12:00 [facility] [address]889 DigBreast [place] uni L EXAMINATION: LEFT FULL FIELD DIGITAL DIAGNOSTIC MAMMOGRAM WITH CAD, DIGITAL LEFT BREAST TOMOSYNTHESIS, AND LEFT BREAST SONOGRAM HISTORY: 59-year-old woman with known left breast malignancy, with an additional suspicious mass seen in the outer left breast. Additional evaluation is requested to evaluate for extent of disease. SONOGRAM FINDINGS: Directed sonogram of the outer left breast was performed. There is an abnormally enlarged left axillary lymph node, in keeping with known metastatic disease. At the 2:30 position, 8 cm from the nipple, there is a 1 cm x 0.7 cm x 0.9 cm irregular hypoechoic mass with posterior acoustic shadowing, the likely correlate for the irregular mass of concern. In addition, at the 3 o'clock position, 3 cm from the nipple, there is a 6 mm hypoechoic, solid mass, approximately 4 cm from the previously biopsied mass. A triangular skin marker was placed over the 1 cm mass at 2:30, and a round skin BB marker placed over the 6 mm mass at 3:00. Additional mammographic views obtained. MAMMOGRAM TECHNIQUE: Additional views of the left breast were obtained utilizing full field digital mammography. Digital breast tomosynthesis was performed and reviewed as a part of this examination. COMPARISON: 07/21/2014, 07/07/2014, 07/01/2014 BREAST PARENCHYMAL COMPOSITION: There are scattered areas of fibroglandular density. MAMMOGRAM FINDINGS: The triangular skin BB marker co-localizes with the spiculated mass in the upper outer left breast at mid to posterior depth. The round skin BB marker is seen more anteriorly, and corresponds to an additional, irregular mass, best seen on mediolateral oblique tomosynthesis sequence image #7. There is a ribbon shaped tissue marker clip in the known, biopsied malignancy. IMPRESSION: 1) There is a 1 cm spiculated mass in the slightly upper outer left breast, 2:30 position, concerning for additional focus of malignancy. Tissue sampling is recommended the ultrasound core needle biopsy; the patient scheduled to undergo this procedure later today. 2. There is a 6 mm mass at the 3 o'clock position of the left breast, closer to the nipple; this may represent sequela from recent biopsy versus a third focus of malignancy. Tissue sampling of this mass is also recommended for further evaluation. Again, the patient scheduled to undergo this exam later today. OVERALL FINAL ASSESSMENT: BI-RADS Category 5: Highly suggestive of malignancy. These findings were discussed with Dr. Ramey by Dr. Mcwilliams on 09/10/2014 at approximately 12:30 p.m. Requested By: Dictated By: BEVERLEY MCWILLIAMS MD, PHD on Sep 10 2014 1:15P This document has been electronically signed by: BEVERLEY MCWILLIAMS MD, PHD on Sep 10 2014 1:15P [id number] us Historical Provider MD GARCIA MAMMO PROCEDURES Deann l Result * US Breast Limited (09/10/2014 10:59 AM CDT) Anatomical Region Laterality Modality Breast N/A Ultrasound 09/10/2014 10:5 9 AM CDT Narrative 09/10/2014 1:15 PM CDT BEVERLEY MCWILLIAMS MD, PHD FINAL REPORT ACC# ??Date Time ??Exam [id number] September 10, 2014 12:03:00 [facility] 89881 Diag Mammogram Unilateral L ?? Technologist(s): Grisel Godwin; ; [id number] September 10, 2014 10:59:00 [facility] [address]4833 Breast US unilateral, ltd L [id number] September 10, 2014 12:12:00 [facility] [address] DigBreast [place] uni L EXAMINATION: ?? LEFT FULL FIELD DIGITAL DIAGNOSTIC MAMMOGRAM WITH CAD, DIGITAL LEFT BREAST TOMOSYNTHESIS, AND LEFT BREAST SONOGRAM HISTORY: 59-year-old woman with known left breast malignancy, with an additional suspicious mass seen in the outer left breast. Additional evaluation is requested to evaluate for extent of disease. SONOGRAM FINDINGS: ??Directed sonogram of the outer left breast was performed. ??There is an abnormally enlarged left axillary lymph node, in keeping with known metastatic disease. At the 2:30 position, 8 cm from the nipple, there is a 1 cm x 0.7 cm x 0.9 cm irregular hypoechoic mass with posterior acoustic shadowing, the likely correlate for the irregular mass of concern. ??In addition, at the 3 o'clock position, 3 cm from the nipple, there is a 6 mm hypoechoic, solid mass, approximately 4 cm from the previously biopsied mass. ??A triangular skin marker was placed over the 1 cm mass at 2:30, and a round skin BB marker placed over the 6 mm mass at 3:00. ??Additional mammographic views obtained. MAMMOGRAM TECHNIQUE: Additional views of the left breast were obtained utilizing full field digital mammography. Digital breast tomosynthesis was performed and reviewed as a part of this examination. COMPARISON: 07/21/2014, 07/07/2014, 07/01/2014 BREAST PARENCHYMAL COMPOSITION: There are scattered areas of fibroglandular density. MAMMOGRAM FINDINGS: ?? The triangular skin BB marker co-localizes with the spiculated mass in the upper outer left breast at mid to posterior depth. ??The round skin BB marker is seen more anteriorly, and corresponds to an additional, irregular mass, best seen on mediolateral oblique tomosynthesis sequence image #7. ??There is a ribbon shaped tissue marker clip in the known, biopsied malignancy. IMPRESSION: ?? 1) There is a 1 cm spiculated mass in the slightly upper outer left breast, 2:30 position, concerning for additional focus of malignancy. Tissue sampling is recommended the ultrasound core needle biopsy; the patient scheduled to undergo this procedure later today. 2. There is a 6 mm mass at the 3 o'clock position of the left breast, closer to the nipple; this may represent sequela from recent biopsy versus a third focus of malignancy. Tissue sampling of this mass is also recommended for further evaluation. Again, the patient scheduled to undergo this exam later today. OVERALL FINAL ASSESSMENT: BI-RADS Category 5: Highly suggestive of malignancy. ??These findings were discussed with Dr. Ramey by Dr. Mcwilliams on 09/10/2014 at approximately 12:30 p.m. Requested By: Dictated By: ?? BEVERLEY MCWILLIAMS MD, PHD ??on Sep 10 2014 ??1:15P This document has been electronically signed by: BEVERLEY MCWILLIAMS MD, PHD on Sep 10 2014 ??1:15P [id number] Procedure Note Provider, MD Tyler - 08/12/2016 BEVERLEY MCWILLIAMS MD, PHD FINAL REPORT ACC# Date Time Exam [id number] September 10, 2014 12:03:00 [facility] 95178 Diag Mammogram Unilateral L Technologist(s): Grisel Godwin; ; [id number] September 10, 2014 10:59:00 [facility] [address]7714 Breast US unilateral, ltd L [id number] September 10, 2014 12:12:00 [facility] [address] DigBreast [place] uni L EXAMINATION: LEFT FULL FIELD DIGITAL DIAGNOSTIC MAMMOGRAM WITH CAD, DIGITAL LEFT BREAST TOMOSYNTHESIS, AND LEFT BREAST SONOGRAM HISTORY: 59-year-old woman with known left breast malignancy, with an additional suspicious mass seen in the outer left breast. Additional evaluation is requested to evaluate for extent of disease. SONOGRAM FINDINGS: Directed sonogram of the outer left breast was performed. There is an abnormally enlarged left axillary lymph node, in keeping with known metastatic disease. At the 2:30 position, 8 cm from the nipple, there is a 1 cm x 0.7 cm x 0.9 cm irregular hypoechoic mass with posterior acoustic shadowing, the likely correlate for the irregular mass of concern. In addition, at the 3 o'clock position, 3 cm from the nipple, there is a 6 mm hypoechoic, solid mass, approximately 4 cm from the previously biopsied mass. A triangular skin marker was placed over the 1 cm mass at 2:30, and a round skin BB marker placed over the 6 mm mass at 3:00. Additional mammographic views obtained. MAMMOGRAM TECHNIQUE: Additional views of the left breast were obtained utilizing full field digital mammography. Digital breast tomosynthesis was performed and reviewed as a part of this examination. COMPARISON: 07/21/2014, 07/07/2014, 07/01/2014 BREAST PARENCHYMAL COMPOSITION: There are scattered areas of fibroglandular density. MAMMOGRAM FINDINGS: The triangular skin BB marker co-localizes with the spiculated mass in the upper outer left breast at mid to posterior depth. The round skin BB marker is seen more anteriorly, and corresponds to an additional, irregular mass, best seen on mediolateral oblique tomosynthesis sequence image #7. There is a ribbon shaped tissue marker clip in the known, biopsied malignancy. IMPRESSION: 1) There is a 1 cm spiculated mass in the slightly upper outer left breast, 2:30 position, concerning for additional focus of malignancy. Tissue sampling is recommended the ultrasound core needle biopsy; the patient scheduled to undergo this procedure later today. 2. There is a 6 mm mass at the 3 o'clock position of the left breast, closer to the nipple; this may represent sequela from recent biopsy versus a third focus of malignancy. Tissue sampling of this mass is also recommended for further evaluation. Again, the patient scheduled to undergo this exam later today. OVERALL FINAL ASSESSMENT: BI-RADS Category 5: Highly suggestive of malignancy. These findings were discussed with Dr. Ramey by Dr. Mcwilliams on 09/10/2014 at approximately 12:30 p.m. Requested By: Dictated By: BEVERLEY MCWILLIAMS MD, PHD on Sep 10 2014 1:15P This document has been electronically signed by: BEVERLEY MCWILLIAMS MD, PHD on Sep 10 2014 1:15P [id number] Historical Provider [facility] US PROCEDURES Final R esult * Surgical pathology (09/10/2014) Narrative 09/10/2014 Ordered by an unspecified provider. Historical Provider LAB PATHOLOGY ORDERABLES Final Result documented in this encounter Visit Diagnoses Diagnosis Malignant neoplasm of breast (female) (HCC) Malignant neoplasm of breast (female), unspecified site documented in this encounter Care Teams Ceramic Engineer Relationship Specialty Start Date End Date Antoinette Zhu MD [address] [id number] PCP - General 08/01/13 07/26/16 documented as of this encounter
--- OUTSIDE RECORDS SUMMARY | 2024-04-26 04:33 | XMS_ITS | Encounter Summary ---
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; Other nervous system complications; Cellulitis and abscess of trunk; Malignant neoplasm of other specified sites of female breast (CMS/HCC); 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; Pseudomonas (aeruginosa)(mallei)(p seudomallei) as the cause of diseases classified to other chapters; Type 2 or unspecified type diabetes mellitus; Essential hypertension; Restless legs syndrome; 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; Anxiety state; Disorder of thyroid; History of allergy to other specified medicinal agents; Personal history of allergy to penicillin; Other non-drug allergy; Personal history of tobacco use, presenting hazards to health; Pain in joint, pelvic region and thigh; Injury to cutaneous sensory nerve, lower limb; Enthesopathy of hip region; Infection due to other gram-negative organism as manifestation of other disease; Removal of organ causing abnormal patient reaction, or later complication; Other specified procedure as the cause of abnormal reaction of patient or of later complication Social History Tobacco Use Types Packs/Day Years Used Date Smoking Tobacco: Former Alcohol Use Standard Drinks/Week Comments No 0 (1 standard drink = 0.6 oz pur e alcohol) Comments Unknown Sex and Gender Information Value Date Recorded Sex Assigned at Not on file 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 Gender Identity Not on file Sexual Orientation Not on file documented as of this encounter Last Filed Vital Signs Vital Sign Reading Time Taken Comments Blood Pressure 112/60 11/14/2014 7:48 PM CDT Pulse 84 11/14/2014 7:48 PM CDT Temperature - - Respiratory Rate - - Oxygen Saturation 100% 11/14/2014 7:48 PM CDT Inhaled Oxygen Concentration - - Weight 125 kg (275 lb 9.6 oz) 11/11/2014 2:33 PM CDT Height 170.2 cm (5' 7 ) 11/11/2014 2:33 PM CDT Body Mass Index 43.16 11/11/2014 2:33 PM CDT documented in this encounter Medications [...] Associated Diagnosis Comments BLOOD GLUCOSE, POC Routine 11/14/2014 1: 32 PM CDT SERUM VANCOMYCIN, TROUGH DRUG LEVEL Routine 11/14/2014 9:42 AM CDT BLOOD GLUCOSE, POC Routine 11/14/2014 8: 29 AM CDT PLASMA BASIC METABOLIC PANEL Routine 11/14/2014 4:40 AM CDT BLOOD CELL COUNT (CBC) Routine 5 4:40 AM CDT DISCHARGE LABORATORY CUMULATIVE REPORT 11/14/2014 ABSCESS CATHETER INJECTION Routine 11/13/2014 4:17 PM CDT FISTULOGRAM ABSCESS SINUS TRACT Routine 11/13/2014 4:17 PM CDT BLOOD GLUCOSE, POC Routine 11/13/2014 3: 16 PM CDT US SOFT TISSUE ABSCESS DRAIN Routine 11/13/2014 1:37 PM CDT AEROBIC CULTURE AND GRAM STAIN, CDR Routine 11/13/2014 1:00 PM CDT AEROBIC CULTURE AND GRAM STAIN, CDR Routine 11/13/2014 1:00 PM CDT MRI PELVIS W WO CONTRAST Routine 015 11:02 AM CDT BLOOD GLUCOSE, POC Routine 11/13/2014 7: 51 AM CDT PLASMA BASIC METABOLIC PANEL Routine 11/13/2014 2:51 AM CDT BLOOD CELL COUNT (CBC) Routine 5 2:51 AM CDT ALL MICROBIOLOGY REPORT SECTION Routine 11/13/2014 12:00 AM CDT ALL MICROBIOLOGY REPORT SECTION Routine 11/13/2014 12:00 AM CDT BLOOD GLUCOSE, POC Routine 11/12/2014 8: 33 PM CDT BLOOD GLUCOSE, POC Routine 11/12/2014 5: 50 PM CDT BLOOD GLUCOSE, POC Routine 11/12/2014 12 :50 PM CDT BLOOD GLUCOSE, POC Routine 11/12/2014 9: [address] CHEST W CONTRAST Routine 11/12/2014 8 :17 AM CDT SERUM TRIIODOTHYRONINE (T3), FREE Routine 11/12/2014 2:43 AM CDT SERUM THYROXINE (T4), FREE Routine 11/12/2014 2:43 AM CDT SERUM C-REACTIVE PROTEIN Routine 015 2:43 AM CDT PLASMA COMPREHENSIVE METABOLIC PANEL Routine 11/12/2014 2:43 AM CDT BLOOD ERYTHROCYTE SEDIMENTATION RATE (ESR) Routine 11/12/2014 2:43 AM CDT BLOOD CELL COUNT (CBC) Routine 5 2:43 AM CDT XR HIPS BILATERAL AP LATERAL W AP PELVIS Routine 11/11/2014 10:52 PM CDT BLOOD GLUCOSE, POC Routine 11/11/2014 9: 50 PM CDT URINE (AEROBIC) CULTURE, CDR Routine 11/11/2014 6:41 PM CDT AEROBIC CULTURE AND GRAM STAIN, CDR Routine 11/11/2014 6:41 PM CDT SERUM THYROID-STIMULATING HORMONE (TSH) Routine 11/11/2014 6:41 PM CDT BLOOD CULTURE, CDR Routine 11/11/2014 5: 45 PM CDT BLOOD GLUCOSE, POC Routine 11/11/2014 4: 50 PM CDT CHEST RADIOGRAPHY, FRONTAL (AP), LATERAL Routine 11/11/2014 3:49 PM CDT ALL MICROBIOLOGY REPORT SECTION Routine 11/11/2014 12:00 AM CDT ALL MICROBIOLOGY REPORT SECTION Routine 11/11/2014 12:00 AM CDT ALL MICROBIOLOGY REPORT SECTION Routine 11/11/2014 12:00 AM CDT documented in this encounter Results * Blood glucose, POC (11/14/2014 1:32 PM CDT) Glucose, POC, bld 139 70 - 199 mg/dl HISTORICAL RESULTS Blood specimen (specimen) 11/14/2014 1:32 PM CDT David Norton MD LAB BLOOD ORDERABLES Final Res ult HISTORICAL RESULTS * Serum vancomycin, trough drug level (11/14/2014 9:42 AM CDT) Vancomycin, trough 12.9 10.0 - 20.9 mcg/ml HISTORICAL RESULTS Comment: Interpretive Data Therapeutic Range: ?? Uncomplicated skin and soft tissue infections: 10-20 mcg/mL ?? All other infections: ??15-20 mcg/mL Current interpretive data was last revised on 12. Serum 11/14/2014 9:42 AM CDT Gerardo Hernandez MD LAB BLOOD ORDERABLES Final Result Performing Organization Address [facility] Co de Phone Number HISTORICAL RESULTS * Blood glucose, POC (11/14/2014 8:29 AM CDT) Glucose, POC, bld 121 70 - 199 mg/dl HISTORICAL RESULTS Blood specimen (specimen) 11/14/2014 8:29 AM CDT David Norton MD LAB BLOOD ORDERABLES Final Res ult Performing Organization Address [facility] de Phone Number HISTORICAL RESULTS * Plasma basic metabolic panel (11/14/2014 4:40 AM CDT) Sodium 137 135 - 145 [...] 0.60 - 1.10 mg/dl HISTORICAL RESULTS Calcium 9.4 8.6 - 10.3 mg/dl HISTORICAL RESULTS Plasma 11/14/2014 4:40 AM CDT Lester Shell MD PhD LAB BLOOD ORDERABLES Fin al Result Performing Organization Address [facility] de Phone Number HISTORICAL RESULTS * (ABNORMAL) Blood cell count (CBC) (11/14/2014 4:40 AM CDT) WBC 7.7 3.8 - 9.8 K/cumm HISTORICAL RESULTS RBC 3.95 3.90 - 5.00 M/cumm HISTORICAL RESULTS Hgb 10.8(L) 12.1 - 15.1 g/dl HISTORICAL RESULTS Hct 34.2(L) 36.1 - 44.3 % HISTORICAL RESULTS MCV 86.6 80.0 - 97.6 fl HISTORICAL RESULTS MCH 27.5 26.7 - 33.7 pg HISTORICAL RESULTS MCHC 31.7(L) 32.7 - 35.5 g/dl HISTORICAL RESULTS Rdw 13.8 11.8 - 14.6 % HISTORICAL RESULTS Platelets 275 140 - 440 K/cumm HISTORICAL RESULTS MPV 8.2 6.8 - 10.4 fl HISTORICAL RESULTS Neutrophils 48.2 38.7 - 74.5 % HISTORICAL RESULTS Lymphocytes 33.4 20.0 - 54.3 % HISTORICAL RESULTS Monos 8.2 4.3 - 13.5 % HISTORICAL RESULTS Eosinophils 9.6(H) 0.0 - 6.0 % HISTORICAL RESULTS Basophils 0.6 0.0 - 3.0 % HISTORICAL RESULTS Neutrophils, abs 3.7 1.8 - 6.6 K/cumm HISTORICAL RESULTS Lymphocytes, abs 2.6 1.2 - 3.3 K/cumm HISTORICAL RESULTS Monocytes, absolute 0.6 0.2 - 1.2 K/cumm HISTORICAL RESULTS Eosinophils, abs 0.7(H) 0.0 - 0.5 K/cumm HISTORICAL RESULTS Basophils, abs 0.0 0.0 - 0.2 K/cumm HISTORICAL RESULTS Blood specimen (specimen) 11/14/2014 4:40 AM CDT Lester Shell MD PhD LAB BLOOD ORDERABLES Fin al Result HISTORICAL RESULTS * DISCHARGE LABORATORY CUMULATIVE REPORT (11/14/2014) Narrative 11/14/2014 Ordered by an unspecified provider. us Historical Provider LAB BLOOD ORDERABLES Deann l Result * Inject Abscess Catheter (11/13/2014 4:17 PM CDT) Anatomical Region Laterality Modality Body N/A X-Ray Angiograph y 11/13/2014 4:17 PM CDT Narrative 11/14/2014 5:56 PM CDT GURDEEP SHEPPARD M.D. VANIA LACEY M.D. FINAL REPORT The radiology attending physician has personally reviewed this study, and has reviewed and/or edited this written report and agrees with it. ACC# ??Date Time ??Exam [id number] Nov 13, 2014 16:17:00 [id number] Inj Abscess Cat [id number] Nov 13, 2014 16:17:00 [id number] Inj Sin/Abs,S&I EXAMINATION: ?? Association of Exams IMPRESSION: ? The report for this examination is included in the report for PERCUTANEOUS DRAINAGE AND TUBE CHECK, for the above- named patient. ??Please refer to that report for the results of this examination. Requested By: Dictated By: ?? VANIA LACEY M.D. ??on Nov 13 2014 ??4:32P This document has been electronically signed by: GURDEEP SHPEPARD M.D. on Nov 14 2014 ??5:56P Procedure Note Provider, Tyler, - 08/12/2016 Avery JULIO M.D. FINAL REPORT The radiology attending physician has personally reviewed this study, and has reviewed and/or edited this written report and agrees with it. ACC# Date Time Exam [id number] Nov 13, 2014 16:17:00 [id number] Inj Abscess Cat [id number] Nov 13, 2014 16:17:00 [id number] Inj Sin/Abs,S&I EXAMINATION: Association of Exams IMPRESSION: The report for this examination is included in the report for PERCUTANEOUS DRAINAGE AND TUBE CHECK, for the above- named patient. Please refer to that report for the results of this examination. Requested By: Dictated By: VANIA LACEY M.D. on Nov 13 2014 4:32P This document has been electronically signed by: GURDEEP SHEPPARD M.D. on Nov 14 2014 5:56P us Historical Provider MD GARCIA IR PROCEDURES Final R esult * Fistulogram Abscess Sinus Tract (11/13/2014 4:17 PM CDT) Anatomical Region Laterality Modality Head and Neck N/A Radiographic Lizeth ging 11/13/2014 4:17 PM CDT Narrative 11/14/2014 5:56 PM CDT Avery JULIO M.D. FINAL REPORT The radiology attending physician has personally reviewed this study, and has reviewed and/or edited this written report and agrees with it. ACC# ??Date Time ??Exam [id number] Nov 13, 2014 16:17:00 [id number] Inj Abscess Cat [id number] Nov 13, 2014 16:17:00 [id number] Inj Sin/Abs,S&I EXAMINATION: ?? Association of Exams IMPRESSION: ? The report for this examination is included in the report for PERCUTANEOUS DRAINAGE AND TUBE CHECK, for the above- named patient. ??Please refer to that report for the results of this examination. Requested By: Dictated By: ?? VANIA LACEY M.D. ??on Nov 13 2014 ??4:32P This document has been electronically signed by: GURDEEP SHEPPARD M.D. on Nov 14 2014 ??5:56P Procedure Note Provider, MD Tyler - 08/12/2016 GURDEEP SHEPPARD M.D. VANIA LACEY M.D. FINAL REPORT The radiology attending physician has personally reviewed this study, and has reviewed and/or edited this written report and agrees with it. ACC# Date Time Exam [id number] Nov 13, 2014 16:17:00 [id number] Inj Abscess Cat [id number] Nov 13, 2014 16:17:00 [id number] Inj Sin/Abs,S&I EXAMINATION: Association of Exams IMPRESSION: The report for this examination is included in the report for PERCUTANEOUS DRAINAGE AND TUBE CHECK, for the above- named patient. Please refer to that report for the results of this examination. Requested By: Dictated By: VANIA LACEY M.D. on Nov 13 2014 4:32P This document has been electronically signed by: GURDEEP SHEPPARD M.D. on Nov 14 2014 5:56P us Historical Provider MD GARCIA IR PROCEDURES Final R esult * Blood glucose, POC (11/13/2014 3:16 PM CDT) Glucose, POC, bld 100 70 - 199 mg/dl HISTORICAL RESULTS Blood specimen (specimen) 11/13/2014 3:16 PM CDT us David Norton MD LAB BLOOD ORDERABLES Final Res ult HISTORICAL RESULTS * US Soft Tissue Abscess Drain (11/13/2014 1:37 PM CDT) Anatomical Region Laterality Modality Entire body N/A Ultrasound 11/13/2014 1:37 PM CDT Narrative 12/11/2014 2:24 PM CDT GURDEEP SHEPPARD M.D. VANIA LACEY M.D. FINAL REPORT The radiology attending physician has personally reviewed this study, and has reviewed and/or edited this written report and agrees with it. ACC# ??Date Time ??Exam [id number] Nov 13, 2014 13:37:00 [id number] Fluid Drain Soft tissue EXAMINATION: ? PERCUTANEOUS DRAINAGE, RIGHT AND DRAINAGE CATHETER CHECK, LEFT HISTORY: ?59-year-old female s/p bilateral radical mastectomy with a left surgical site 12 [place] loop and new right axillary fluid collection. ATTENDING PRESENCE: Dr. Hannah Sheppard, the attending radiologist, was present from the beginning to the end of the procedure. SEDATION: Moderate sedation was administered under the attending physician's direction and continuous monitoring by a trained nurse specialist who was independent from those actually performing the procedure. ??Total monitored sedation time was 15 minutes. TECHNIQUE: The risks, benefits and alternatives were discussed and informed consent was obtained. ??Prior to beginning the procedure, [place] Protocol was used to confirm the patient's identity and planned procedure. ??If fluoroscopy was used, fluoroscopy time has been recorded in the electronic medical record. Maximum sterile barriers including cap, mask, hand hygiene, sterile gloves, sterile gown, large sterile drape and 2% chlorhexidine for cutaneous antisepsis were used. The skin overlying the fluid collection in the right axilla was sterilely prepped, draped and infiltrated with 1% lidocaine. The targeted collection was then accessed with an 18 gauge Watts needle using imaging guidance which included fluoroscopy and ultrasound. A guidewire was advanced and coiled within the right collection before dilating the tract to 12 kenyan. ??A 12 Fr [place] loop was then advanced over the guidewire, formed in the collection, and secured in place with a stitch of 0-Prolene. The catheter was connected to gravity drainage. ??A sterile dressing was applied. A sample of the fluid was sent for culture and gram stain. Then our attention was turned to the left axillary drain. After obtaining a dermatology sales representative image, the catheter was injected with dilute contrast and multiple fluoroscopic images obtained. ESTIMATED BLOOD LOSS: Minimal DISCHARGED TO: Recovery and then to home CONDITION: Stable FINDINGS: Images from the procedure revealed a large collection along the right axilla/chest wall. Serosanguinous fluid was aspirated, 10 cc. The left axillary collection was flushed and demonstrated a small, unchanged cavity. ?? IMPRESSION: Successful image guided drainage of the right axillary collection. Stable left axillary cavity. PLAN: Catheters should be flushed with 10 cc saline daily, and maintained to bag. Patient is to follow up for a tube check in 2 weeks. ?? ADDENDUM THIS ADDENDUM IS BEING ADDED TO REMOVE TWO ORDERS. ??THE BODY OF THIS STUDY HAS NOT BEEN ALTERED. Requested By: GERARDO HERNANDEZ M.D. Dictated By: ?? VANIA LACEY M.D. ??on Nov 13 2014 ??3:43P This document has been electronically signed by: GURDEEP SHEPPARD M.D. on Nov 14 2014 ??5:56P Addendum Dictated by: OUTSIDE IMAGES ALLERGY AND IMMUNOLOGY SPECIALIST, ??on Dec 11 2014 10:40A This Addendum has been electronically signed by: GURDEEP SHEPPARD M.D. on Dec 11 2014 ??2:24P [id number] Procedure Note Provider, MD Tyler - 08/12/2016 Avery JULIO M.D. FINAL REPORT The radiology attending physician has personally reviewed this study, and has reviewed and/or edited this written report and agrees with it. ACC# Date Time Exam [id number] Nov 13, 2014 13:37:00 [id number] Fluid Drain Soft tissue EXAMINATION: PERCUTANEOUS DRAINAGE, RIGHT AND DRAINAGE CATHETER CHECK, LEFT HISTORY: 59-year-old female s/p bilateral radical mastectomy with a left surgical site 12 [place] loop and new right axillary fluid collection. ATTENDING PRESENCE: Dr. Hannah Sheppard, the attending radiologist, was present from the beginning to the end of the procedure. SEDATION: Moderate sedation was administered under the attending physician's direction and continuous monitoring by a trained nurse specialist who was independent from those actually performing the procedure. Total monitored sedation time was 15 minutes. TECHNIQUE: The risks, benefits and alternatives were discussed and informed consent was obtained. Prior to beginning the procedure, [place] Protocol was used to confirm the patient's identity and planned procedure. If fluoroscopy was used, fluoroscopy time has been recorded in the electronic medical record. Maximum sterile barriers including cap, mask, hand hygiene, sterile gloves, sterile gown, large sterile drape and 2% chlorhexidine for cutaneous antisepsis were used. The skin overlying the fluid collection in the right axilla was sterilely prepped, draped and infiltrated with 1% lidocaine. The targeted collection was then accessed with an 18 gauge Watts needle using imaging guidance which included fluoroscopy and ultrasound. A guidewire was advanced and coiled within the right collection before dilating the tract to 12 kenyan. A 12 Fr [place] loop was then advanced over the guidewire, formed in the collection, and secured in place with a stitch of 0-Prolene. The catheter was connected to gravity drainage. A sterile dressing was applied. A sample of the fluid was sent for culture and gram stain. Then our attention was turned to the left axillary drain. After obtaining a dermatology sales representative image, the catheter was injected with dilute contrast and multiple fluoroscopic images obtained. ESTIMATED BLOOD LOSS: Minimal DISCHARGED TO: Recovery and then to home CONDITION: Stable FINDINGS: Images from the procedure revealed a large collection along the right axilla/chest wall. Serosanguinous fluid was aspirated, 10 cc. The left axillary collection was flushed and demonstrated a small, unchanged cavity. IMPRESSION: Successful image guided drainage of the right axillary collection. Stable left axillary cavity. PLAN: Catheters should be flushed with 10 cc saline daily, and maintained to bag. Patient is to follow up for a tube check in 2 weeks. ADDENDUM THIS ADDENDUM IS BEING ADDED TO REMOVE TWO ORDERS. THE BODY OF THIS STUDY HAS NOT BEEN ALTERED. Requested By: GERARDO HERNANDEZ M.D. Dictated By: VANIA LACEY M.D. on Nov 13 2014 3:43P This document has been electronically signed by: GURDEEP SHEPPARD M.D. on Nov 14 2014 5:56P Addendum Dictated by: OUTSIDE IMAGES ALLERGY AND IMMUNOLOGY SPECIALIST, on Dec 11 201410:40A This Addendum has been electronically signed by: GURDEEP SHEPPARD M.D. on Dec 11 2014 2:24P [id number] Historical Provider IMG US PROCEDURES Final R esult * Aerobic culture and Gram stain (11/13/2014 1:00 PM CDT) Aspirate (Breast, left) 11/13/2014 1:00 PM CDT 11/13/2014 5:18 PM CDT Impressions HISTORICAL RESULTS - 11/15/2014 10:02 AM CDT Specimens submitted from normally sterile [...] revised on 2013. Narrative HISTORICAL RESULTS - 11/15/2014 10:02 AM CDT No growth No polymorphonuclear leukocytes seen. No organisms seen. Historical Provider LAB MICROBIOLOGY - GENERA L ORDERABLES Final Result HISTORICAL RESULTS * Aerobic culture and Gram stain (11/13/2014 1:00 PM CDT) Aspirate (Breast, right) 11/13/2014 1:00 PM CDT 11/13/2014 5:16 PM CDT Impressions HISTORICAL RESULTS - 11/15/2014 10:03 AM CDT Specimens submitted from normally sterile [...] revised on 2013. Narrative HISTORICAL RESULTS - 11/15/2014 10:03 AM CDT Few polymorphonuclear leukocytes seen. No organisms seen. No growth us Historical Provider MD LAB MICROBIOLOGY - GENERA L ORDERABLES Final Result HISTORICAL RESULTS * MRI Pelvis WWO Contrast (11/13/2014 11:02 AM CDT) Anatomical Region Laterality Modality Pelvis N/A Magnetic Resonan ce 11/13/2014 11:0 2 AM CDT Narrative 11/13/2014 4:23 PM CDT CHAGO SAHU M.D. AMANDA ZAMARRIPA M.D. FINAL REPORT The radiology attending physician has personally reviewed this study, and has reviewed and/or edited this written report and agrees with it. ACC# ??Date Time ??Exam [id number] Nov 13, 2014 11:02:00 [id number] MR Pelv SI Jnts wwo cont ACC# ??Date Time ??Exam [id number] Nov 13, 2014 11:02:00 [id number] MR Pelv SI Jnts wwo cont EXAMINATION: ?? MR pelvis and sacroiliac joints without and with contrast HISTORY: Breast cancer. Persistent right hip pain after bone marrow biopsy. 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 MR examination of the pelvis and sacroiliac joints was performed with a multi-coil array. An MR compatible skin marker was placed by the patient over the site of maximal pain which she localized over the right hip joint. Coronal short TR/TE and STIR images and transverse short TR/TE and fast spin echo images were supplemented with oblique coronal images through the sacrum and sacroiliac joints. After the uneventful administration of 20 mL Multihance intravenous contrast, repeat transverse short TR/TE images were obtained. 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 There is otherwise normal marrow signal intensity in the lower lumbar spine, sacrum, pelvis, and both proximal femora. There is no evidence of fracture, stress fracture, or osteonecrosis. No evidence of osteomyelitis is identified. The muscle bulk of the pelvis is normal and symmetric. The hamstring origins and sciatic nerves are normal and symmetric. The sacroiliac joints are normal. No hip joint effusion is identified. The gluteus tendon insertions on the greater trochanters appear normal. The iliotibial band also appears normal. There is mild bilateral greater trochanteric bursitis, right greater than left. 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 Nabothian cysts are evident. There is no pelvic lymphadenopathy or inguinal hernia. ?? IMPRESSION: 1. No evidence of osteomyelitis in the pelvis or hips. 2. Mild bilateral greater trochanteric bursitis, right greater than left. ?? Requested By: GERARDO HERNANDEZ M.D. Dictated By: ?? AMANDA ZAMARRIPA M.D. ??on Nov 13 2014 12:01P This document has been electronically signed by: CHAGO SAHU M.D. on Nov 13 2014 ??4:23P [id number] Procedure Note Provider, MD Tyler - 08/12/2016 Avery PIÑA M.D. FINAL REPORT The radiology attending physician has personally reviewed this study, and has reviewed and/or edited this written report and agrees with it. ACC# Date Time Exam [id number] Nov 13, 2014 11:02:00 [id number] MR Pelv SI Jnts wwo cont ACC# Date Time Exam [id number] Nov 13, 2014 11:02:00 [id number] MR Pelv SI Jnts wwo cont EXAMINATION: MR pelvis and sacroiliac joints without and with contrast HISTORY: Breast cancer. Persistent right hip pain after bone marrow biopsy. 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 MR examination of the pelvis and sacroiliac joints was performed with a multi-coil array. An MR compatible skin marker was placed by the patient over the site of maximal pain which she localized over the right hip joint. Coronal short TR/TE and STIR images and transverse short TR/TE and fast spin echo images were supplemented with oblique coronal images through the sacrum and sacroiliac joints. After the uneventful administration of 20 mL Multihance intravenous contrast, repeat transverse short TR/TE images were obtained. 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 There is otherwise normal marrow signal intensity in the lower lumbar spine, sacrum, pelvis, and both proximal femora. There is no evidence of fracture, stress fracture, or osteonecrosis. No evidence of osteomyelitis is identified. The muscle bulk of the pelvis is normal and symmetric. The hamstring origins and sciatic nerves are normal and symmetric. The sacroiliac joints are normal. No hip joint effusion is identified. The gluteus tendon insertions on the greater trochanters appear normal. The iliotibial band also appears normal. There is mild bilateral greater trochanteric bursitis, right greater than left. 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 Nabothian cysts are evident. There is no pelvic lymphadenopathy or inguinal hernia. IMPRESSION: 1. No evidence of osteomyelitis in the pelvis or hips. 2. Mild bilateral greater trochanteric bursitis, right greater thanleft. Requested By: GERARDO HERNANDEZ M.D. Dictated By: AMANDA ZAMARRIPA M.D. on Nov 13 2014 12:01P This document has been electronically signed by: CHAGO SAHU M.D. on Nov 13 2014 4:23P [id number] Historical Provider IMG MRI PROCEDURES Final Result * Blood glucose, POC (11/13/2014 7:51 AM CDT) Pathologist [facility] Glucose, POC, bld 109 70 - 199 mg/dl HISTORICAL RESULTS Blood specimen (specimen) 11/13/2014 7:51 AM CDT David Norton MD LAB BLOOD ORDERABLES Final Res ult HISTORICAL RESULTS * Plasma basic metabolic panel (11/13/2014 2:51 AM CDT) Sodium 136 135 - 145 mmol/L HISTORICAL RESULTS K, pl 4.4 3.3 - 4.9 mmol/L HISTORICAL RESULTS Chloride 101 97 - 110 mmol/L HISTORICAL RESULTS CO2 26 22 - 32 mmol/L HISTORICAL RESULTS A. gap 9 0 - 16 mmol/L HISTORICAL RESULTS Glucose 129 70 - 199 mg/dl HISTORICAL RESULTS BUN 18 8 - 25 mg/dl HISTORICAL RESULTS Creatinine 0.60 0.60 - 1.10 mg/dl HISTORICAL RESULTS Calcium 9.4 8.6 - 10.3 mg/dl HISTORICAL RESULTS Plasma 11/13/2014 2:51 AM CDT Lester Shell MD PhD LAB BLOOD ORDERABLES Fin eleni Result Performing Organization Address [facility] de Phone Number HISTORICAL RESULTS * (ABNORMAL) Blood cell count (CBC) (11/13/2014 2:51 AM CDT) WBC 8.4 3.8 - 9.8 K/cumm HISTORICAL RESULTS RBC 4.16 3.90 - 5.00 M/cumm HISTORICAL RESULTS Hgb 11.4(L) 12.1 - 15.1 g/dl HISTORICAL RESULTS Hct 36.2 36.1 - 44.3 % HISTORICAL RESULTS MCV 87.1 80.0 - 97.6 fl HISTORICAL RESULTS MCH 27.4 26.7 - 33.7 pg HISTORICAL RESULTS MCHC 31.5(L) 32.7 - 35.5 g/dl HISTORICAL RESULTS Rdw 13.8 11.8 - 14.6 % HISTORICAL RESULTS Platelets 300 140 - 440 K/cumm HISTORICAL RESULTS MPV 8.8 6.8 - 10.4 fl HISTORICAL RESULTS Neutrophils 42.2 38.7 - 74.5 % HISTORICAL RESULTS Lymphocytes 37.0 20.0 - 54.3 % HISTORICAL RESULTS Monos 7.9 4.3 - 13.5 % HISTORICAL RESULTS Eosinophils 10.8(H) 0.0 - 6.0 % HISTORICAL RESULTS Basophils 2.1 0.0 - 3.0 % HISTORICAL RESULTS Neutrophils, abs 3.6 1.8 - 6.6 K/cumm HISTORICAL RESULTS Lymphocytes, abs 3.1 1.2 - 3.3 K/cumm HISTORICAL RESULTS Monocytes, absolute 0.7 0.2 - 1.2 K/cumm HISTORICAL RESULTS Eosinophils, abs 0.9(H) 0.0 - 0.5 K/cumm HISTORICAL RESULTS Basophils, abs 0.2 0.0 - 0.2 K/cumm HISTORICAL RESULTS Blood specimen (specimen) 11/13/2014 2:51 AM CDT Letser Shell MD PhD LAB BLOOD ORDERABLES Fin al Result HISTORICAL RESULTS * All Microbiology Report Section (11/13/2014 12:00 AM CDT) 11/13/2014 Narrative HISTORICAL RESULTS - 11/15/2014 12:51 PM CDT ? [facility] ?[place], [place] [address] ? Patient Name: ??MARIE MOHSEN Montero ? Med Rec Number: [id number] ? Fin Number: ?[id number] ? Date: ?1955 ? Sex/Age: ? Female 59 years ? Admit Date: ?11/11/2014 ? Discharge Date: 11/14/2014 ? Doctor: ?Khris Arthur ? [facility] ? Location: ?7900 [address] 01 ?* Abnormal ??A Alert ??f Footnote ??^ Corrected ??L Low ??H High ?i Interp Data ??@ Ref Lab ? Chart Type:Cumulative ?* * * * MICROBIOLOGY - WOUND and EXUDATES * * * * ?PROCEDURE: Aerobic Culture, Wound and Gram Stain ? SOURCE: Aspirate ? COLLECTED: 11/13/14 ??1300 ?BODY SITE: Breast, left ? STARTED: 11/13/14 ??1718 ? FREE TEXT SOURCE: ? DIRECT SPECIMEN EXAMINATION ? Stain ? REPORTED: 11/13/142026 ? No polymorphonuclear leukocytes seen. ? No organisms seen. ? FINAL REPORT ? REPORTED: 11/15/14 1002 ? No growth ? ORDER COMMENTS ? (1)Fluid specimen received. drain ?* * * ??Interpretive Results ??* * [...] HISTORICAL RESULTS * All Microbiology Report Section (11/13/2014 12:00 AM CDT) 11/13/2014 Narrative HISTORICAL RESULTS - 11/15/2014 12:51 PM CDT ? [facility] ?[place], [place] [address] ? Patient Name: ??MOHSEN MARQUES ? Med Rec Number: [id number] ? Fin Number: ?[id number] ? Date: ?1955 ? Sex/Age: ? Female 59 years ? Admit Date: ?11/11/2014 ? Discharge Date: 11/14/2014 ? Doctor: ?Khris Arthur ? [facility] ? Location: ?7900 [address] 01 ?* Abnormal ??A Alert ??f Footnote ??^ Corrected ??L Low ??H High ?i Interp Data ??@ Ref Lab ? Chart Type:Cumulative ?* * * * MICROBIOLOGY - WOUND and EXUDATES * * * * ?PROCEDURE: Aerobic Culture, Wound and Gram Stain ? SOURCE: Aspirate ? COLLECTED: 07/23/15 ??1300 ?BODY SITE: Breast, right ? STARTED: 07/23/15 ??1717 ? FREE TEXT SOURCE: ? DIRECT SPECIMEN EXAMINATION ? Stain ? REPORTED: 11/13/142013 ? Few polymorphonuclear leukocytes seen. ? No organisms seen. ? FINAL REPORT ? REPORTED: 11/15/14 1003 ? No growth ? ORDER COMMENTS ? (1)Fluid specimen received. drain ?* * * ??Interpretive Results ??* * [...] L ORDERABLES Final Result Performing Organization Address [facility] de Phone Number HISTORICAL RESULTS * Blood glucose, POC (11/12/2014 8:33 PM CDT) Glucose, POC, bld 104 70 - 199 mg/dl HISTORICAL RESULTS Blood specimen (specimen) 11/12/2014 8:33 PM CDT David Norton MD LAB BLOOD ORDERABLES Final Res ult Performing Organization Address [facility] Co de Phone Number HISTORICAL RESULTS * Blood glucose, POC (11/12/2014 5:50 PM CDT) Glucose, POC, bld 110 70 - 199 mg/dl HISTORICAL RESULTS Blood specimen (specimen) 11/12/2014 5:50 PM CDT David Norton MD LAB BLOOD ORDERABLES Final Res ult Performing Organization Address [facility] de Phone Number HISTORICAL RESULTS * Blood glucose, POC (11/12/2014 12:50 PM CDT) Glucose, POC, bld 120 70 - 199 mg/dl HISTORICAL RESULTS Blood specimen (specimen) 11/12/2014 12:50 PM CDT David Norton MD LAB BLOOD ORDERABLES Final Res ult Performing Organization Address [facility] Phone Number HISTORICAL RESULTS * Blood glucose, POC (11/12/2014 9:43 AM CDT) Glucose, POC, bld 95 70 - 199 mg/dl HISTORICAL RESULTS Blood specimen (specimen) 11/12/2014 9:43 AM CDT David Norton MD LAB BLOOD ORDERABLES Final Res ult Performing Organization Address [facility] Phone Number HISTORICAL RESULTS * CT Chest W Contrast (11/12/2014 8:17 AM CDT) Anatomical Region Laterality Modality Body N/A Computed Tomogra phy 11/12/2014 8:17 AM CDT Narrative 11/12/2014 9:57 AM CDT GERARDO MCKEON M.D. SIXTO GARCÍA M.D. FINAL REPORT The radiology attending physician has personally reviewed this study, and has reviewed and/or edited this written report and agrees with it. ACC# ??Date Time ??Exam [id number] Nov 12, 2014 08:17:[address] Chest with contrast EXAMINATION: ?CT of the chest with intravenous contrast HISTORY: ??59-year-old woman with invasive ductal carcinoma of the breast status post bilateral mastectomy presents with chest cellulitis TECHNIQUE: ??Transaxial computed tomographic images of the chest were obtained after the uneventful administration of 96mL of Optiray 350 intravenous contrast per standard protocol. FINDINGS: ??Comparison is made to prior dated 08/13/2014. Bilateral tiny thyroid nodules are partially calcified and unchanged from prior. No mediastinal, axillary, or hilar lymphadenopathy. No lung nodules, consolidation, or pleural effusion. Heart is normal without pericardial effusion. A pigtail catheter terminates in the left subcutaneous tissue at the mastectomy site. There is mild surrounding fat stranding but no fluid collections in the left chest wall. The right chest tissue extends beyond the scanner range, but at least a 14.4 x 3.2 cm fluid collection is seen at slide position -176.5. Right port site has mild fat stranding but no fluid collection. Visualized portions of the abdomen demonstrate postcholecystectomy changes but no abnormalities. IMPRESSION: ?? A 14.4 x 3.2 cm fluid collection is seen in the right anterior chest wall. ?? Requested By: GERARDO HERNANDEZ M.D. Dictated By: ?? SIXTO GARCÍA M.D. ??on Nov 12 2014 ??9:18A This document has been electronically signed by: GERARDO MCKEON M.D. on Nov 12 2014 ??9:57A [id number] Procedure Note Provider, MD Tyler - 08/12/2016 GERARDO MCKEON M.D. SIXTO GARCÍA M.D. FINAL REPORT The radiology attending physician has personally reviewed this study, and has reviewed and/or edited this written report and agrees with it. [facility]# Date Time Exam [id number] Nov 12, 2014 08:17:[address] Chest with contrast EXAMINATION: CT of the chest with intravenous contrast HISTORY: 59-year-old woman with invasive ductal carcinoma of the breast status post bilateral mastectomy presents with chest cellulitis TECHNIQUE: Transaxial computed tomographic images of the chest were obtained after the uneventful administration of 96mL of Optiray 350 intravenous contrast per standard protocol. FINDINGS: Comparison is made to prior dated 08/13/2014. Bilateral tiny thyroid nodules are partially calcified and unchanged from prior. No mediastinal, axillary, or hilar lymphadenopathy. No lung nodules, consolidation, or pleural effusion. Heart is normal without pericardial effusion. A pigtail catheter terminates in the left subcutaneous tissue at the mastectomy site. There is mild surrounding fat stranding but no fluid collections in the left chest wall. The right chest tissue extends beyond the scanner range, but at least a 14.4 x 3.2 cm fluid collection is seen at slide position -176.5. Right port site has mild fat stranding but no fluid collection. Visualized portions of the abdomen demonstrate postcholecystectomy changes but no abnormalities. IMPRESSION: A 14.4 x 3.2 cm fluid collection is seen in the right anterior chest wall. Requested By: GERARDO HERNANDEZ M.D. Dictated By: SIXTO GARCÍA M.D. on Nov 12 2014 9:18A This document has been electronically signed by: GERARDO MCKEON M.D. on Nov 12 2014 9:57A [id number] Historical Provider [facility]MM[facility] CT PROCEDURES Final R esult * (ABNORMAL) Plasma comprehensive metabolic panel (11/12/2014 2:43 AM CDT) Sodium 136 135 - 145 mmol/L HISTORICAL RESULTS K, pl 4.5 3.3 - 4.9 mmol/L HISTORICAL RESULTS Chloride 103 97 - 110 mmol/L HISTORICAL RESULTS CO2 23 22 - 32 mmol/L HISTORICAL RESULTS A. gap 10 0 - 16 mmol/L HISTORICAL RESULTS Glucose 120 70 - 199 mg/dl HISTORICAL RESULTS BUN 21 8 - 25 mg/dl HISTORICAL RESULTS Creatinine 0.62 0.60 - 1.10 mg/dl HISTORICAL RESULTS Calcium 9.3 8.6 - 10.3 mg/dl HISTORICAL RESULTS Protein, pl 7.3 6.5 - 8.5 g/dl HISTORICAL RESULTS Alb 3.4(L) 3.6 - 5.0 g/dl HISTORICAL RESULTS Bilirubin 0.4 0.3 - 1.1 mg/dl HISTORICAL RESULTS Alk phos 74 38 - 126 Units/L HISTORICAL RESULTS AST 18 11 - 47 Units/L HISTORICAL RESULTS ALT 17 7 - 53 Units/L HISTORICAL RESULTS Plasma 11/12/2014 2:43 AM CDT us Gerardo Hernandez MD LAB BLOOD ORDERABLES Final Result HISTORICAL RESULTS * (ABNORMAL) Blood cell count (CBC) (11/12/2014 2:43 AM CDT) [facility] WBC 8.1 3.8 - 9.8 K/cumm HISTORICAL RESULTS RBC 3.75(L) 3.90 - 5.00 M/cumm HISTORICAL RESULTS Hgb 10.3(L) 12.1 - 15.1 g/dl HISTORICAL RESULTS Hct 32.6(L) 36.1 - 44.3 % HISTORICAL RESULTS MCV 87.0 80.0 - 97.6 fl HISTORICAL RESULTS MCH 27.3 26.7 - 33.7 pg HISTORICAL RESULTS MCHC 31.4(L) 32.7 - 35.5 g/dl HISTORICAL RESULTS Rdw 13.9 11.8 - 14.6 % HISTORICAL RESULTS Platelets 299 140 - 440 K/cumm HISTORICAL RESULTS MPV 8.5 6.8 - 10.4 fl HISTORICAL RESULTS Neutrophils 48.4 38.7 - 74.5 % HISTORICAL RESULTS Lymphocytes 34.8 20.0 - 54.3 % HISTORICAL RESULTS Monos 8.5 4.3 - 13.5 % HISTORICAL RESULTS Eosinophils 7.9(H) 0.0 - 6.0 % HISTORICAL RESULTS Basophils 0.4 0.0 - 3.0 % HISTORICAL RESULTS Neutrophils, abs 3.9 1.8 - 6.6 K/cumm HISTORICAL RESULTS Lymphocytes, abs 2.8 1.2 - 3.3 K/cumm HISTORICAL RESULTS Monocytes, absolute 0.7 0.2 - 1.2 K/cumm HISTORICAL RESULTS Eosinophils, abs 0.6(H) 0.0 - 0.5 K/cumm HISTORICAL RESULTS Basophils, abs 0.0 0.0 - 0.2 K/cumm HISTORICAL RESULTS Blood specimen (specimen) 11/12/2014 2:43 AM CDT Gerardo Hernandez MD LAB BLOOD ORDERABLES Final Result HISTORICAL RESULTS * (ABNORMAL) Serum C-reactive protein (11/12/2014 2:43 AM CDT) C-RP 15.7(H) 0.0 - 9.9 mg/L HISTORICAL RESULTS Serum 11/12/2014 2:43 AM CDT Gerardo Hernandez MD LAB BLOOD ORDERABLES Final Result Performing Organization Address [facility] Phone Number HISTORICAL RESULTS * Blood erythrocyte sedimentation rate (ESR) (11/12/2014 2:43 AM CDT) [facility] Erythrocyte sedimentation rate 28.0 0.0 - 35.0 mm/hr HISTORICAL RESULTS Blood specimen (specimen) 11/12/2014 2:43 AM CDT Gerardo Hernandez MD LAB BLOOD ORDERABLES Final Result Performing Organization Address [facility] Phone Number HISTORICAL RESULTS * Serum triiodothyronine (T3), free (11/12/2014 2:43 AM CDT) [facility] Free T3 3.30 2.30 - 4.20 pg/ml HISTORICAL RESULTS Serum 11/12/2014 2:43 AM CDT Gerardo Hernandez MD LAB BLOOD ORDERABLES Final Result Performing Organization Address [facility] Phone Number HISTORICAL RESULTS * Serum thyroxine (T4), free (11/12/2014 2:43 AM CDT) Pathologist [facility] Free T4 0.95 0.90 - 1.80 ng/dl HISTORICAL RESULTS Serum 11/12/2014 2:43 AM CDT Gerardo Hernandez MD LAB BLOOD ORDERABLES Final Result Performing Organization Address [facility] Phone Number HISTORICAL RESULTS * XR Hips Bilateral AP Lateral W AP Pelvis (11/11/2014 10:52 PM CDT) Anatomical Region Laterality Modality Lower Extremities, Hip, Pelvis Bilateral R adiographic Imaging 11/11/2014 10:5 2 PM CDT Narrative 11/12/2014 8:06 AM CDT NAYELI MUSTAFA M.D. WILLIAMS MERRILL M.D. FINAL REPORT The radiology attending physician has personally reviewed this study, and has reviewed and/or edited this written report and agrees with it. ACC# ??Date Time ??Exam [id number] Nov 11, 2014 22:52:00 45165 Hips2v marilyn/Pelvis EXAMINATION: ?Hips 2 views bilateral/pelvis HISTORY: ??Bone Marrow Biopsy with continued pain FINDINGS: ?? AP view of the pelvis and 2 views of both hips were submitted for interpretation with comparison to CT dated 08/13/2014. There is moderate degenerative disc disease at L4-S1. There is osteitis pubis, which is unchanged. There is sclerosis along both iliac bones, consistent with osteitis condensans ilii. There are no fractures. The hip joint spaces are maintained. There is no cortical destruction to suggest osteomyelitis. Multiple surgical clips overlie the pelvis, consistent with prior ventral hernia repair. IMPRESSION: ?? 1. No radiographic evidence of osteomyelitis. 2. 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 2. Moderate unchanged degenerative disc disease at L4-S1. Requested By: GERARDO HERNANDEZ M.D. Dictated By: ?? WILLIAMS MERRILL M.D. ??on Nov 12 2014 ??7:33A This document has been electronically signed by: NAYELI MUSTAFA M.D. on Nov 12 2014 ??8:06A [id number] Procedure Note Provider, MD Tyler - 08/12/2016 NAYELI MUSTAFA M.D. WILLIAMS MERRILL M.D. FINAL REPORT The radiology attending physician has personally reviewed this study, and has reviewed and/or edited this written report and agrees with it. ACC# Date Time Exam [id number] Nov 11, 2014 22:52:00 [id number] Hips2v marilyn/Pelvis EXAMINATION: Hips 2 views bilateral/pelvis HISTORY: Bone Marrow Biopsy with continued pain FINDINGS: AP view of the pelvis and 2 views of both hips were submitted for interpretation with comparison to CT dated 08/13/2014. There is moderate degenerative disc disease at L4-S1. There is osteitis pubis, which is unchanged. There is sclerosis along both iliac bones, consistent with osteitis condensans ilii. There are no fractures. The hip joint spaces are maintained. There is no cortical destruction to suggest osteomyelitis. Multiple surgical clips overlie the pelvis, consistent with prior ventral hernia repair. IMPRESSION: 1. No radiographic evidence of osteomyelitis. 2. 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 2. Moderate unchanged degenerative disc disease at L4-S1. Requested By: GERARDO HERNANDEZ M.D. Dictated By: WILLIAMS MERRILL M.D. on Nov 12 2014 7:33A This document has been electronically signed by: NAYELI MUSTAFA M.D. on Nov 12 2014 8:06A [id number] Historical Provider IMG XR PROCEDURES Final R esult * Blood glucose, POC (11/11/2014 9:50 PM CDT) Pathologist [facility] Glucose, POC, bld 120 70 - 199 mg/dl HISTORICAL RESULTS Blood specimen (specimen) 11/11/2014 9:50 PM CDT David Norton MD LAB BLOOD ORDERABLES Final Res ult HISTORICAL RESULTS * (ABNORMAL) Serum thyroid-stimulating hormone (TSH) (11/11/2014 6:41 PM CDT) TSH 0.03(L) 0.35 - 5.50 mcIUnits/ ml HISTORICAL RESULTS Comment: Interpretive Data Hyperthyroid: ??<0.1 mcIUnit/mL Hypothyroid: ??>12.0 mcIUnit/mL Current interpretive data was last revised on 00. Serum 11/11/2014 6:41 PM CDT Gerardo Hernandez MD LAB BLOOD ORDERABLES Final Result HISTORICAL RESULTS * Aerobic culture and Gram stain (11/11/2014 6:41 PM CDT) Organism KOXY^[id number] HISTORICAL RESULTS Organism PPUT^[id number] HISTORICAL RESULTS Organism SMAL^[id number] HISTORICAL RESULTS Drainage (Chest catheter) 11/11/2014 6:41 PM CDT 11/11/2014 8:35 PM CDT Impressions HISTORICAL RESULTS - 11/17/2014 12:02 PM CDT Specimens submitted from normally sterile body [...] revised on 2013. Narrative HISTORICAL RESULTS - 11/17/2014 12:02 PM CDT No polymorphonuclear leukocytes seen. Few Gram Positive Cocci Rare Gram Negative Bacilli Abundant Mixed microorganisms. Includes the following: Moderate Klebsiella oxytoca Moderate Pseudomonas putida group Moderate Stenotrophomonas maltophilia Organism Antibiotic Method Susceptibility Klebsiella oxytoca Ampicillin Resistant Klebsiella oxytoca Cefazolin Resistant Klebsiella oxytoca Gentamicin Susceptible Klebsiella oxytoca Cefoxitin Susceptible Klebsiella oxytoca Trimethoprim with Sulfamethoxazole Susceptible Klebsiella oxytoca Meropenem Susceptible Klebsiella oxytoca Cefepime Susceptible Klebsiella oxytoca Ciprofloxacin Susceptible Klebsiella oxytoca Ceftriaxone Susceptible Klebsiella oxytoca Piperacillin/Tazobactam Susceptible Pseudomonas putida Cefepime Susceptible Pseudomonas putida Ciprofloxacin Susceptible Pseudomonas putida Gentamicin Susceptible Pseudomonas putida Meropenem Susceptible Pseudomonas putida Trimethoprim with Harry lfamethoxazole (TERRANCE) Resistant Pseudomonas putida Piperacillin/Tazobactam (TERRANCE) Susceptible Stenotrophomonas maltophilia Trimethoprim with Sulfame thoxazole Susceptible Stenotrophomonas maltophilia Colistin Susceptible Stenotrophomonas maltophilia Minocycline Susceptible Stenotrophomonas maltophilia Levofloxacin Susceptible us Historical Provider LAB MICROBIOLOGY - GENERA L ORDERABLES Final Result HISTORICAL RESULTS * Urine (aerobic) culture (11/11/2014 6:41 PM CDT) Urine (Unknown) 11/11/2014 6 :41 PM CDT 11/11/2014 8:52 PM CDT Narrative HISTORICAL RESULTS - 11/13/2014 10:05 AM CDT Insignificant growth based on current clinical standards. Historical Provider LAB MICROBIOLOGY - GENERA L ORDERABLES Final Result Performing Organization Address [facility] Co de Phone Number HISTORICAL RESULTS * Blood culture (11/11/2014 5:45 PM CDT) Blood specimen (specimen) (Arm, right) 11/11/2014 5:45 PM CDT 11/11/2014 6:30 PM CDT Impressions HISTORICAL RESULTS - 11/17/2014 2:33 AM CDT Blood cultures are incubated for [...] organism identification may be performed using the Crosswise Nanosphere Gram Positive Blood Culture Assay. ??The Nanosphere assay detects microbial DNA in positive blood culture broth via hybridization of target DNA to capture oligonucleotides on a microarray. ??This assay has been cleared by the [place] Food and Drug Administration and its performance characteristics have been verified by the [facility]. Current Interpretive Data was last revised on 2013. Narrative HISTORICAL RESULTS - 11/17/2014 2:33 AM CDT No growth Historical Provider LAB MICROBIOLOGY - GENERA L ORDERABLES Final Result Performing Organization Address [facility] de Phone Number HISTORICAL RESULTS * Blood glucose, POC (11/11/2014 4:50 PM CDT) [facility] Glucose, POC, bld 116 70 - 199 mg/dl HISTORICAL RESULTS Blood specimen (specimen) 11/11/2014 4:50 PM CDT David Norton MD LAB BLOOD ORDERABLES Final Res ult Performing Organization Address [facility] Co de Phone Number HISTORICAL RESULTS * CHEST RADIOGRAPHY, FRONTAL (AP), LATERAL (11/11/2014 3:49 PM CDT) Anatomical Region Laterality Modality N/A Radiographic Lizeth ging 11/11/2014 3:49 PM CDT Narrative 11/11/2014 8:35 PM CDT LING ADEN M.D. ADAMA RENYAGA M.D. FINAL REPORT The radiology attending physician has personally reviewed this study, and has reviewed and/or edited this written report and agrees with it. ACC# ??Date Time ??Exam [id number] Nov 11, 2014 15:49:00 33211 Chest 2 views Frontl & Lat EXAMINATION: ?Chest 2-view. IMPRESSION: ?? Comparison with prior study dated 10/22/2014. There is interval removal of a right chemotherapy port and placement of a left pigtail catheter with the tip in the lower lateral thoracic wall. The lungs are clear, without focal consolidation, pleural effusion, or pneumothorax. The cardiac silhouette is normal. Requested By: GERARDO HERNANDEZ M.D. Dictated By: ?? ADAMA REYNAGA M.D. ??on Nov 11 2014 ??5:22P This document has been electronically signed by: LING ADEN M.D. on Nov 11 2014 ??8:34P [id number] Procedure Note Provider, MD Tyler - 08/12/2016 LING ADEN M.D. ADAMA REYNAGA M.D. FINAL REPORT The radiology attending physician has personally reviewed this study, and has reviewed and/or edited this written report and agrees with it. ACC# Date Time Exam [id number] Nov 11, 2014 15:49:00 [id number] Chest 2 views Frontl & Lat EXAMINATION: Chest 2-view. IMPRESSION: Comparison with prior study dated 10/22/2014. There is interval removal of a right chemotherapy port and placement of a left pigtail catheter with the tip in the lower lateral thoracic wall. The lungs are clear, without focal consolidation, pleural effusion, or pneumothorax. The cardiac silhouette is normal. Requested By: GERARDO HERNANDEZ M.D. Dictated By: ADAMA REYNAGA M.D. on Nov 11 2014 5:22P This document has been electronically signed by: LING ADEN M.D. on Nov 11 2014 8:34P [id number] us Historical Provider [facility] XR PROCEDURES Final R esult * All Microbiology Report Section (11/11/2014 12:00 AM CDT) 11/11/2014 Narrative HISTORICAL RESULTS - 11/15/2014 12:51 PM CDT ? [facility] ?[place], [place] [address] ? Patient Name: ??LEONAMBER MOHSEN Montero ? Med Rec Number: [id number] ? Fin Number: ?[id number] ? Date: ?1955 ? Sex/Age: ? Female 59 years ? Admit Date: ?11/11/2014 ? Discharge Date: 11/14/2014 ? Doctor: ?Jerson , Khris O ? [facility] ? Location: ?7900 [address] 01 ?* Abnormal ??A Alert ??f Footnote ??^ Corrected ??L Low ??H High ?i Interp Data ??@ Ref Lab ? Chart Type:Cumulative ?* * * * MICROBIOLOGY - URINE * * * * ?PROCEDURE: Urine Culture ? SOURCE: Urine ? COLLECTED: 11/11/14 ??1841 ?BODY SITE: ? STARTED: 11/11/14 ??2051 ? FREE TEXT SOURCE: ? FINAL REPORT ? REPORTED: 11/13/14 1005 ? Insignificant growth based on current clinical standards. us Historical Provider MD LAB MICROBIOLOGY - GENERA L ORDERABLES Final Result HISTORICAL RESULTS * All Microbiology Report Section (11/11/2014 12:00 AM CDT) 11/11/2014 Narrative HISTORICAL RESULTS - 11/17/2014 3:29 AM CDT ? [facility] ?[facility] ?[place] [address] ? Patient Name: ??MOHSEN MARQUES ? Med Rec Number: [id number] ? Fin Number: ?[id number] ? Date: ?1955 ? Sex/Age: ? Female 59 years ? Admit Date: ?11/11/2014 ? Discharge Date: 11/14/2014 ? Doctor: ?Jerson , Khris O ? Facility[facility] ? Location: ?7900 [address] 01 ?* Abnormal ??A Alert ??f Footnote ??^ Corrected ??L Low ??H High ?i Interp Data ??@ Ref Lab ? Chart Type:Cumulative ?* * * * MICROBIOLOGY - BLOOD/STERILE FLUID * * * * ?PROCEDURE: Culture, Blood ? SOURCE: Blood ? COLLECTED: 11/11/14 ??1745 ?BODY SITE: Arm, right ? STARTED: 11/11/14 ??1830 ? FREE TEXT SOURCE: ? FINAL REPORT ? REPORTED: 11/17/14 0233 ? No growth ?* * * ??Interpretive [...] identification may be ? performed using the Crosswise Nanosphere Gram Positive Blood ? Culture Assay. ??The Nanosphere assay detects microbial DNA in ? positive blood culture broth via hybridization of target DNA to ? capture oligonucleotides on a microarray. ??This assay has been ? cleared by the [place] Food and Drug Administration and ? its performance characteristics have been verified by the ? [facility].Current ? Interpretive Data was last revised on 2013. ? us Historical Provider MD [facility] - GENERA L ORDERABLES Final Result HISTORICAL RESULTS * All Microbiology Report Section (11/11/2014 12:00 AM CDT) 11/11/2014 Narrative HISTORICAL RESULTS - 11/17/2014 12:56 PM CDT ? [facility] ?[place], [place] [address] ? Patient Name: ??MOHSEN MARQUES ? Med Rec Number: [id number] ? Fin Number: ?[id number] ? Date: ?1955 ? Sex/Age: ? Female 59 years ? Admit Date: ?11/11/2014 ? Discharge Date: 11/14/2014 ? Doctor: ?Jerson , Khris [place] ? Facility[facility] ? Location: ?[id number] ?* Abnormal ??A Alert ??f Footnote ??^ Corrected ??L Low ??H High ?i Interp Data ??@ Ref Lab ? Chart Type:Cumulative ?* * * * MICROBIOLOGY - WOUND and EXUDATES * * * * ?PROCEDURE: Aerobic Culture, Wound and Gram Stain ? SOURCE: Drainage ? COLLECTED: 11/11/14 ??1841 ?BODY SITE: Chest catheter ? STARTED: 11/11/14 ??2035 ? FREE TEXT SOURCE: ? DIRECT SPECIMEN EXAMINATION ? Stain ? REPORTED: 11/11/142156 ? No polymorphonuclear leukocytes seen. ? Few Gram Positive Cocci ? Rare Gram Negative Bacilli ? FINAL REPORT ? REPORTED: 11/17/14 1202 ? Abundant Mixed microorganisms. Includes the following: Moderate ? Klebsiella oxytoca Moderate Pseudomonas putida group Moderate ? Stenotrophomonas maltophilia ? SUSCEPTIBILITY RESULTS ? Klebsiella oxytoca ?SUSCEPTIBLE: Gentamicin,Cefoxitin, ? Trimethoprim with Sulfamethoxazole, ? Meropenem,Cefepime,Ciprofloxacin, ? Ceftriaxone, ? Piperacillin/Tazobactam ?RESISTANT: Ampicillin,Cefazolin ? Pseudomonas putida ?SUSCEPTIBLE: Cefepime (TERRANCE), ? Ciprofloxacin (TERRANCE), ? Gentamicin (TERRANCE),Meropenem (TERRANCE), ? Piperacillin/Tazobactam (TERRANCE) ?RESISTANT: Trimethoprim with Sulfamethoxazole(TERRANCE) ? Stenotrophomonas maltophilia ?SUSCEPTIBLE: Trimethoprim with Sulfamethoxazole, ? Colistin,Minocycline, ? Levofloxacin ? ORDER COMMENTS ? (1)Fluid specimen received. 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 Klebsiella pneumoniae Pseudomonas (aeruginosa)(mallei)(pseudomallei) as the cause of diseases classified to other chapters Type 2 or unspecified type diabetes mellitus Essential hypertension Unspecified essential hypertension Restless legs syndrome Restless legs syndrome (RLS) 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 Anxiety state Anxiety state, unspecified Disorder of thyroid Unspecified disorder of thyroid History of allergy to other specified medicinal agents Personal history of allergy to penicillin Other non-drug allergy Personal history of tobacco use, presenting hazards to health Pain in joint, pelvic region and thigh Injury to cutaneous sensory nerve, lower limb Enthesopathy of hip region Infection due to other gram-negative organism as manifestation of other disease Removal of organ causing abnormal patient reaction, or later complication Other specified procedure as the cause of abnormal reaction of patient or of later complication documented in this encounter Care Teams Business Operations Manager Relationship Specialty Start Date End Date Antoinette Zhu MD [address] [address] PCP - General 08/01/13 07/26/16 documented as of this encounter
--- OUTSIDE RECORDS SUMMARY | 2024-04-26 04:33 | XMS_ITS | Encounter Summary ---
Author Organization [facility] Facility Care Team Providers Care It Infrastructure Project Manager Name Role Phone Antoinette Zhu MD Primary Care Provider [phone] Encounter Details Date Type Department Care Team (Late st Contact Info) Description 12/18/2014 1:30 AM CDT - 12/18/2014 2:30 PM CDT Hospital Encounter [facility] Khris Martinez MD [address] [facility] [address] [place] [address] Local infection due to central venous catheter Social History Tobacco Use Types Packs/Day Years Used Date Smoking Tobacco: Former Alcohol Use Standard Drinks/Week Comments No 0 (1 standard drink = 0.6 oz pur e alcohol) Comments Unknown Sex and Gender Information Value Date Recorded Sex Assigned at Not on file 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 Gender Identity Not on file Sexual Orientation Not on file documented as of this encounter Last Filed Vital Signs Vital Sign Reading Time Taken Comments Blood Pressure 128/69 12/18/2014 12:45 PM CDT Pulse 82 12/18/2014 12:45 PM CDT Temperature - - Respiratory Rate - - Oxygen Saturation 99% 12/18/2014 11: 36 AM CDT Inhaled Oxygen Concentration - - Weight 122.4 kg (269 lb 14.2 oz) 12/18/2014 2:14 AM CDT Height 154.9 cm (5' 1 ) 12/18/2014 2:14 AM CDT Body Mass Index 50.99 12/18/2014 2:14 AM CDT documented in this encounter Medications [...] Associated Diagnosis Comments BLOOD GLUCOSE, POC Routine 12/18/2014 11 :21 AM CDT BLOOD GLUCOSE, POC Routine 12/18/2014 8: 10 AM CDT BLOOD GLUCOSE, POC Routine 12/18/2014 2: 29 AM CDT DISCHARGE LABORATORY CUMULATIVE REPORT 12/18/2014 BLOOD CULTURE, CDR Routine 12/17/2014 11 :16 PM CDT AEROBIC/ANAEROBIC CULTURE AND GRAM STAIN, CDR Routine 12/17/2014 11:[address] CHEST W CONTRAST Routine 12/17/2014 9 :31 PM CDT URINE (AEROBIC) CULTURE, CDR Routine 12/17/2014 9:30 PM CDT URINE MICROSCOPY Routine 12/17/2014 9:30 PM CDT URINALYSIS Routine 12/17/2014 9:30 PM CDT CHEST RADIOGRAPHY, FRONTAL (AP), LATERAL Routine 12/17/2014 6:53 PM CDT SERUM MAGNESIUM Routine 12/17/2014 6:40 PM CDT PLASMA COMPREHENSIVE METABOLIC PANEL Routine 12/17/2014 6:40 PM CDT BLOOD CELL COUNT (CBC) Routine 5 6:40 PM CDT RESPIRATORY PATHOGEN MULTIPLEX PCR, CDR Routine 12/17/2014 6:33 PM CDT INFLUENZA VIRUS PCR, CDR Routine 12/17/2014 6:33 PM CDT ALL MICROBIOLOGY REPORT SECTION Routine 12/17/2014 12:00 AM CDT ALL MICROBIOLOGY REPORT SECTION Routine 12/17/2014 12:00 AM CDT ALL MICROBIOLOGY REPORT SECTION Routine 12/17/2014 12:00 AM CDT ALL MICROBIOLOGY REPORT SECTION Routine 12/17/2014 12:00 AM CDT ALL MICROBIOLOGY REPORT SECTION Routine 12/17/2014 12:00 AM CDT documented in this encounter Results * Blood glucose, POC (12/18/2014 11:21 AM CDT) Pathologist [facility] Glucose, POC, bld 124 70 - 199 mg/dl HISTORICAL RESULTS Blood specimen (specimen) 12/18/2014 11:21 AM CDT Result [facility] Desean Raphael MD LAB BLOOD ORDERABLES Final Resul t HISTORICAL RESULTS * Blood glucose, POC (12/18/2014 8:10 AM CDT) Glucose, POC, bld 137 70 - 199 mg/dl HISTORICAL RESULTS Blood specimen (specimen) 12/18/2014 8:10 AM CDT Desean Raphael MD LAB BLOOD ORDERABLES Final Resul t Performing Organization Address [facility]/ZIP Co de Phone Number HISTORICAL RESULTS * Blood glucose, POC (12/18/2014 2:29 AM CDT) Glucose, POC, bld 117 70 - 199 mg/dl HISTORICAL RESULTS Blood specimen (specimen) 12/18/2014 2:29 AM CDT Result [facility] Roseanne Baron MD LAB BLOOD ORDERA BLES Final Result Performing Organization Address [facility]/ZIP Co de Phone Number HISTORICAL RESULTS * DISCHARGE LABORATORY CUMULATIVE REPORT (12/18/2014) Narrative 12/18/2014 Ordered by an unspecified provider. Result [facility] Tyler Smith MD LAB BLOOD ORDERABLES Deann l Result * Blood culture (12/17/2014 11:16 PM CDT) Blood specimen (specimen) (Antecubital, right) 12/17/2014 11:16 PM CDT 12/18/2014 1:43 AM CDT Impressions HISTORICAL RESULTS - 12/23/2014 4:09 AM CDT Blood cultures are incubated for [...] organism identification may be performed using the [employer] Nanosphere Gram Positive Blood Culture Assay. ??The [...] revised on 2013. Narrative HISTORICAL RESULTS - 12/23/2014 4:09 AM CDT No growth Historical Provider MD LAB MICROBIOLOGY - GENERA L ORDERABLES Final Result Performing Organization Address [facility] de Phone Number HISTORICAL RESULTS * Aerobic/anaerobic culture and Gram stain (12/17/2014 11:06 PM CDT) Wound (Breast, right) 12/17/2014 11:06 PM CDT 12/18/2014 1:44 AM CDT Impressions HISTORICAL RESULTS - 12/22/2014 12:49 PM CDT Specimens submitted from normally sterile [...] revised on 2013. Narrative HISTORICAL RESULTS - 12/22/2014 12:49 PM CDT Few Mixed skin microorganisms. No polymorphonuclear leukocytes seen. No organisms seen. Historical Provider MD LAB MICROBIOLOGY - GENERA L ORDERABLES Final Result Performing Organization Address [facility] de Phone Number HISTORICAL RESULTS * CT Chest W Contrast (12/17/2014 9:31 PM CDT) Anatomical Region Laterality Modality Body N/A Computed Tomogra phy 12/17/2014 9:31 PM CDT Narrative 12/18/2014 8:15 AM CDT FATUMA LOPEZ M.D. ESTRADA AIKEN M.D. FINAL REPORT The radiology attending physician has personally reviewed this study, and has reviewed and/or edited this written report and agrees with it. ACC# ??Date Time ??Exam [id number] Dec 17, 2014 21:31:[address] Chest with contrast EXAMINATION: ?CT of the chest with intravenous contrast HISTORY: Breast cancer with increased shortness of breath TECHNIQUE: ??Transaxial computed tomographic images of the chest were obtained after the uneventful administration of 120 ml of Optiray 350 intravenous contrast according to pulmonary embolism protocol. ?? FINDINGS: ??Comparison is made to prior examination dated 11/12/2014 Evaluation for pulmonary embolism is limited secondary to early bolus timing. No pulmonary embolism seen. The heart is normal in size without pericardial effusion. Small nodules within both thyroid lobes are unchanged. Subcentimeter mediastinal lymph nodes are unchanged. 8mm in the anterior mediastinal lymph node has slightly increased in size, previously 6 mm of (-42.80). A pigtail catheter is seen within subcutaneous fat of the right lateral chest with resolution of patient's previously seen postoperative seroma. Residual stranding is seen adjacent to the catheter. The lung parenchymal windows no focal consolidation, pleural effusion or pneumothorax. Scattered, stable 2 mm nodule seen. Visualized portions of the upper abdomen demonstrate cholecystectomy clips. 2 mm nonobstructing stone is seen within the right kidney. Bone windows demonstrate no suspicious lytic or sclerotic lesion. Multilevel thoracic degenerative disease is seen. No acute fracture. IMPRESSION: ? 1. Limited evaluation for pulmonary embolism secondary to early bolus timing. No central pulmonary embolism. 2. Partially evaluated pigtail catheter within the subcutaneous fat of the right lateral chest with no residual drainable fluid collection. Findings discussed with Ana Guerrero SWIMMER by Dr. Aiken at 10:00 p.m. on 12/17/2014. Requested By: ANA RANDOLPH Dictated By: ?? ESTRADA AIKEN M.D. ??on Dec 17 2014 10:12P This document has been electronically signed by: FATUMA LOPEZ M.D. on Dec 18 2014 ??8:14A [id number] Procedure Note Provider, MD Tyler - 08/12/2016 FATUMA LOPEZ M.D. ESTRADA AIKEN M.D. FINAL REPORT The radiology attending physician has personally reviewed this study, and has reviewed and/or edited this written report and agrees with it. ACC# Date Time Exam [id number] Dec 17, 2014 21:31:[address] Chest with contrast EXAMINATION: CT of the chest with intravenous contrast HISTORY: Breast cancer with increased shortness of breath TECHNIQUE: Transaxial computed tomographic images of the chest were obtained after the uneventful administration of 120 ml of Optiray 350 intravenous contrast according to pulmonary embolism protocol. FINDINGS: Comparison is made to prior examination dated 11/12/2014 Evaluation for pulmonary embolism is limited secondary to early bolus timing. No pulmonary embolism seen. The heart is normal in size without pericardial effusion. Small nodules within both thyroid lobes are unchanged. Subcentimeter mediastinal lymph nodes are unchanged. 8mm in the anterior mediastinal lymph node has slightly increased in size, previously 6 mm of (-42.80). A pigtail catheter is seen within subcutaneous fat of the right lateral chest with resolution of patient's previously seen postoperative seroma. Residual stranding is seen adjacent to the catheter. The lung parenchymal windows no focal consolidation, pleural effusion or pneumothorax. Scattered, stable 2 mm nodule seen. Visualized portions of the upper abdomen demonstrate cholecystectomy clips. 2 mm nonobstructing stone is seen within the right kidney. Bone windows demonstrate no suspicious lytic or sclerotic lesion. Multilevel thoracic degenerative disease is seen. No acute fracture. IMPRESSION: 1. Limited evaluation for pulmonary embolism secondary to early bolus timing. No central pulmonary embolism. 2. Partially evaluated pigtail catheter within the subcutaneous fat of the right lateral chest with no residual drainable fluid collection. Findings discussed with Ana Guerrero SWIMMER by Dr. Aiken at 10:00 p.m. on 12/17/2014. Requested By: ANA RANDOLPH [facility] Dictated By: ESTRADA AIKEN M.D. on Dec 17 2014 10:12P This document has been electronically signed by: FATUMA LOPEZ M.D. on Dec 18 2014 8:14A [id number] us Historical Provider IMMichael CT PROCEDURES Final R esult * (ABNORMAL) Urinalysis (12/17/2014 9:30 PM CDT) Color, ur Yellow Yellow HISTORICAL RESULTS Clarity, ur Clear Clear HISTORIC AL RESULTS Specific gravity, ur 1.020 1.003 - 1.030 HISTORICAL RESULTS pH, ur 5.0 5.0 - 8.0 HISTORICAL RESULTS Protein, ur Negative Trace HISTORIC AL RESULTS Glucose, ur Negative Negative HISTORIC AL RESULTS Ketones, ur Negative Negative HISTORIC AL RESULTS Bilirubin, ur Negative Negative HISTOR ICAL RESULTS U Blood 1+(A) Negative HISTORICAL RESULTS Urobilinogen, quant, ur <2.0 0.0 - 2.0 mg/dl HISTORICAL RESULTS Nitrites, ur Negative Negative HISTORI JOY RESULTS Leukocyte esterase, ur Negative Negative HISTORICAL RESULTS Urine 12/17/2014 9:30 PM CDT Carla Graf SWIMMER LAB BLOOD ORDERABLES Final R esult Performing Organization Address [facility] Co de Phone Number HISTORICAL RESULTS * Urine microscopy (12/17/2014 9:30 PM CDT) RBC, ur 1 0 - 3 /hpf HISTORICA L RESULTS WBC, ur 0 0 - 5 /hpf HISTORICA L RESULTS Bacteria, ur Negative Trace HISTORI JOY RESULTS Epithelial cells, renal, ur 0 0 - 0 /hpf HISTORICAL RESULTS Epithelial cells, squamous, ur >20 /lpf HISTORICAL RESULTS Mucus, ur Small /hpf HISTORICAL RESULTS Urine 12/17/2014 9:30 PM CDT Carla Graf SWIMMER LAB BLOOD ORDERABLES Final R esult Performing Organization Address [facility] de Phone Number HISTORICAL RESULTS * Urine (aerobic) culture (12/17/2014 9:30 PM CDT) Urine (Unknown) 12/17/2014 9 :30 PM CDT 12/18/2014 1:52 AM CDT Narrative HISTORICAL RESULTS - 12/19/2014 12:00 PM CDT Insignificant growth based on current clinical standards. Historical Provider MD LAB MICROBIOLOGY - GENERA L ORDERABLES Final Result Performing Organization Address [facility] de Phone Number HISTORICAL RESULTS * CHEST RADIOGRAPHY, FRONTAL (AP), LATERAL (12/17/2014 6:53 PM CDT) Anatomical Region Laterality Modality N/A Radiographic Lizeth ging 12/17/2014 6:53 PM CDT Narrative 12/18/2014 8:28 AM CDT GERARDO MCKEON M.D. KRZYSZTOF PHAM M.D. FINAL REPORT The radiology attending physician has personally reviewed this study, and has reviewed and/or edited this written report and agrees with it. ACC# ??Date Time ??Exam [id number] Dec 17, 2014 18:53:00 04445 Chest 2 views Frontl & Lat ACC# ??Date Time ??Exam [id number] Dec 17, 2014 18:53:00 19626 Chest 2 views Frontl & Lat EXAMINATION: ?? Chest two views frontal and lateral HISTORY: 59-year-old female with breast cancer presenting with shorts of breath, concern for pneumonia. ?? IMPRESSION: ?? Comparison was made to study dated 11/23/2014. Interval removal of a left lateral chest wall subcutaneous pigtail catheter. Unchanged right lateral chest wall pigtail catheter. Interval removal of a right upper extremity PICC. Small lung volumes accentuate pulmonary vasculature and cardiac contour. The lungs are clear. Specifically, there is no pneumonia, pleural effusion, pulmonary edema or pneumothorax. Heart size and mediastinal contours are normal. ?? Requested By: CARLA GRAF ANP Dictated By: ?? KRZYSZTOF PHAM M.D. ??on Dec 17 2014 ??7:36P This document has been electronically signed by: GERARDO MCKEON M.D. on Dec 18 2014 ??8:28A [id number] Procedure Note Provider, MD Tyler - 08/12/2016 GERARDO MCKEON M.D. KRZYSZTOF PHAM M.D. FINAL REPORT The radiology attending physician has personally reviewed this study, and has reviewed and/or edited this written report and agrees with it. ACC# Date Time Exam [id number] Dec 17, 2014 18:53:00 34739 Chest 2 views Frontl & Lat ACC# Date Time Exam [id number] Dec 17, 2014 18:53:00 06405 Chest 2 views Frontl & Lat EXAMINATION: Chest two views frontal and lateral HISTORY: 59-year-old female with breast cancer presenting with shorts of breath, concern for pneumonia. IMPRESSION: Comparison was made to study dated 11/23/2014. Interval removal of a left lateral chest wall subcutaneous pigtail catheter. Unchanged right lateral chest wall pigtail catheter. Interval removal of a right upper extremity PICC. Small lung volumes accentuate pulmonary vasculature and cardiac contour. The lungs are clear. Specifically, there is no pneumonia, pleural effusion, pulmonary edema or pneumothorax. Heart size and mediastinal contours are normal. Requested By: CARLA GRAF Dictated By: KRZYSZTOF PHAM M.D. on Dec 17 2014 7:36P This document has been electronically signed by: GERARDO MCKEON M.D. on Dec 18 2014 8:28A [id number] us Historical Provider MD GARCIA XR PROCEDURES Final R esult * (ABNORMAL) Plasma comprehensive metabolic panel (12/17/2014 6:40 PM CDT) Sodium 138 135 - 145 mmol/L HISTORICAL RESULTS K, pl 3.9 3.3 - 4.9 mmol/L HISTORICAL RESULTS Chloride 102 97 - 110 mmol/L HISTORICAL RESULTS CO2 26 22 - 32 mmol/L HISTORICAL RESULTS A. gap 10 0 - 16 mmol/L HISTORICAL RESULTS Glucose 94 70 - 199 mg/dl HISTORICAL RESULTS BUN 17 8 - 25 mg/dl HISTORICAL RESULTS Creatinine 0.88 0.60 - 1.10 mg/dl HISTORICAL RESULTS Calcium 9.7 8.6 - 10.3 mg/dl HISTORICAL RESULTS Protein, pl 8.4 6.5 - 8.5 g/dl HISTORICAL RESULTS Alb 3.8 3.6 - 5.0 g/dl HISTORICAL RESULTS Bilirubin 0.2(L) 0.3 - 1.1 mg/dl HISTORICAL RESULTS Alk phos 86 38 - 126 Units/L HISTORICAL RESULTS AST 21 11 - 47 Units/L HISTORICAL RESULTS ALT 25 7 - 53 Units/L HISTORICAL RESULTS Plasma 12/17/2014 6:40 PM CDT Carla Graf SWIMMER LAB BLOOD ORDERABLES Final R esult HISTORICAL RESULTS * Serum magnesium (12/17/2014 6:40 PM CDT) Magnesium 1.7 1.4 - 2.5 mg/dl HISTORICAL RESULTS Serum 12/17/2014 6:40 PM CDT Carla Graf SWIMMER LAB BLOOD ORDERABLES Final R esult HISTORICAL RESULTS * (ABNORMAL) Blood cell count (CBC) (12/17/2014 6:40 PM CDT) WBC 11.7(H) 3.8 - 9.8 K/cumm HISTORICAL RESULTS RBC 4.33 3.90 - 5.00 M/cumm HISTORICAL RESULTS Hgb 11.5(L) 12.1 - 15.1 g/dl HISTORICAL RESULTS Hct 37.4 36.1 - 44.3 % HISTORICAL RESULTS MCV 86.3 80.0 - 97.6 fl HISTORICAL RESULTS MCH 26.5(L) 26.7 - 33.7 pg HISTORICAL RESULTS MCHC 30.7(L) 32.7 - 35.5 g/dl HISTORICAL RESULTS Rdw 14.1 11.8 - 14.6 % HISTORICAL RESULTS Platelets 380 140 - 440 K/cumm HISTORICAL RESULTS MPV 7.8 6.8 - 10.4 fl HISTORICAL RESULTS Neutrophils 56.8 38.7 - 74.5 % HISTORICAL RESULTS Lymphocytes 29.7 20.0 - 54.3 % HISTORICAL RESULTS Monos 7.8 4.3 - 13.5 % HISTORICAL RESULTS Eosinophils 5.5 0.0 - 6.0 % HISTORICAL RESULTS Basophils 0.2 0.0 - 3.0 % HISTORICAL RESULTS Neutrophils, abs 6.7(H) 1.8 - 6.6 K/cumm HISTORICAL RESULTS Lymphocytes, abs 3.5(H) 1.2 - 3.3 K/cumm HISTORICAL RESULTS Monocytes, absolute 0.9 0.2 - 1.2 K/cumm HISTORICAL RESULTS Eosinophils, abs 0.7(H) 0.0 - 0.5 K/cumm HISTORICAL RESULTS Basophils, abs 0.0 0.0 - 0.2 K/cumm HISTORICAL RESULTS Blood specimen (specimen) 12/17/2014 6:40 PM CDT Carla Graf SWIMMER LAB BLOOD ORDERABLES Final R esult HISTORICAL RESULTS * Respiratory Pathogen Multiplex PCR (12/17/2014 6:33 PM CDT) Nasopharyngeal (Unknown) 12/17/2014 6:33 PM CDT 12/17/2014 8:12 PM CDT Impressions HISTORICAL RESULTS - 12/17/2014 10:16 PM CDT The [employer] (formerly known as [employer]) FilmArray Respiratory Panel (RP) assay is a multiplexed nucleic acid test capable of simultaneous qualitative detection and identification of multiple respiratory viral and bacterial nucleic acids. ??The following bacteria, viruses and virus subtypes can be identified using the FilmArray RP assay: Bordetella pertussis, Chlamydophila pneumoniae, Mycoplasma pneumoniae, Adenovirus, Coronavirus HKU1, Coronavirus NL63, Coronavirus 229E, Coronavirus OC43, Influenza A, Influenza A subtype H1, Influenza A subtype H3, Influenza A subtype 2009 H1, Influenza B, Metapneumovirus, Parainfluenza 1, Parainfluenza 2, Parainfluenza 3, Parainfluenza 4, RSV, Rhinovirus/Enterovirus. Due to the genetic similarity between human Rhinovirus and Enterovirus, the FilmArray RP assay cannot reliably differentiate them. Coronavirus OC43 may cross-react with some isolates of Coronavirus HKU1. ??A dual positive result may be due to cross-reactivity or may indicate a co-infection. A version of the FilmArray RP assay updated to include an additional adenovirus assay was approved by the FDA in May,. ??The updated version has demonstrated improved detection of adenoviruses relative to the previous version. ??All of the other assays for the 20 targets are unchanged. ?? The detection and identification of specific viral and bacterial nucleic acids from individuals exhibiting signs and symptoms of a respiratory infection aids in the diagnosis of respiratory infection if used in conjunction with other clinical and epidemiological information. ??The results of this test should not be used as the sole basis for diagnosis, treatment, or other management decisions. ??Negative results in the setting of a respiratory illness may be due to infection with pathogens that are not detected by this test. ??Positive results do not rule out infection/co- infection with other organisms. ??The agent(s) detected by the FilmArray RP may not be the definite cause of disease. ??Additional testing (lab, imaging, etc) may be necessary when evaluating a patient with possible respiratory tract infection. The FilmArray RP assay is FDA cleared for SWIMMER swabs. ??Additional sample types have been validated according to CLIA regulations. ??The performance characteristics of this assay have been determined by [facility]. Current interpretive data was last revised on 2013. Narrative HISTORICAL RESULTS - 12/17/2014 10:16 PM CDT Respiratory Pathogen nucleic acids DETECTED (POSITIVE) for the following: Rhinovirus/Enterovirus Historical Provider MD LAB MICROBIOLOGY - GENERA L ORDERABLES Final Result Performing Organization Address [facility] de Phone Number HISTORICAL RESULTS * Influenza virus PCR (12/17/2014 6:33 PM CDT) Nasopharyngeal (Unknown) 12/17/2014 6:33 PM CDT 12/17/2014 6:57 PM CDT Impressions HISTORICAL RESULTS - 12/17/2014 10:39 PM CDT This test has been performed using the [employer] Xpert Flu Assay. ??This is a multiplex, real-time reverse transcriptase PCR assay that detects and differentiates influenza A, 2009 H1N1 influenza A, and influenza B viral RNA. ??This assay has been cleared by the [place] Food and Drug Administration, and its performance characteristics have been verified by the [facility]. Current interpretive data was last revised on 2011. Narrative HISTORICAL RESULTS - 12/17/2014 10:39 PM CDT Flu A target RNA not detected Flu B target RNA not detected Historical Provider MD LAB MICROBIOLOGY - GENERA L ORDERABLES Final Result Performing Organization Address [facility] de Phone Number HISTORICAL RESULTS * All Microbiology Report Section (12/17/2014 12:00 AM CDT) 12/17/2014 Narrative HISTORICAL RESULTS - 12/22/2014 3:48 PM CDT ? [facility] ?[address] [facility] [address] [address] ? Patient Name: ??MOHSEN MARQUES ? Med Rec Number: [id number] ? Fin Number: ?[id number] ? Date: ?1955 ? Sex/Age: ? Female 59 years ? Admit Date: ?12/18/2014 ? Discharge Date: 12/18/2014 ? Doctor: ?Medicine , ? Facility: ?[facility] ? Location: ?* Abnormal ??A Alert ??f Footnote ??^ Corrected ??L Low ??H High ?i Interp Data ??@ Ref Lab ? Chart Type:Cumulative ?* * * * MICROBIOLOGY - URINE * * * * ?PROCEDURE: Urine Culture ? SOURCE: Urine ? COLLECTED: 12/17/ ??2130 ?BODY SITE: ? STARTED: 12/18/14 ??0153 ? FREE TEXT SOURCE: ? FINAL REPORT ? REPORTED: 12/19/14 1200 ? Insignificant growth based on current clinical standards. us Historical Provider MD LAB MICROBIOLOGY - GENERA L ORDERABLES Final Result HISTORICAL RESULTS * All Microbiology Report Section (12/17/2014 12:00 AM CDT) 12/17/2014 Narrative HISTORICAL RESULTS - 12/23/2014 6:46 AM CDT ? [facility] ?[address] [facility] [address] ?[place], [place] [address] ? Patient Name: ??MOHSEN MARQUES ? Med Rec Number: [id number] ? Fin Number: ?[id number] ? Date: ?1955 ? Sex/Age: ? Female 59 years ? Admit Date: ?12/18/2014 ? Discharge Date: 12/18/2014 ? Doctor: ?Medicine , ? Facility: ?[facility] ? Location: ?* Abnormal ??A Alert ??f Footnote ??^ Corrected ??L Low ??H High ?i Interp Data ??@ Ref Lab ? Chart Type:Cumulative ?* * * * MICROBIOLOGY - BLOOD/STERILE FLUID * * * * ?PROCEDURE: Culture, Blood ? SOURCE: Blood ? COLLECTED: 08/26/15 ??2316 ?BODY SITE: Antecubital, right ? STARTED: 08//15 ??0143 ? FREE TEXT SOURCE: ? FINAL REPORT ? REPORTED: 09/01/15 0408 ? No growth ?* * * ??Interpretive [...] identification may be ? performed using the [employer] Nanosphere Gram Positive Blood ? Culture Assay. [...] HISTORICAL RESULTS * All Microbiology Report Section (12/17/2014 12:00 AM CDT) 12/17/2014 Narrative HISTORICAL RESULTS - 12/22/2014 3:48 PM CDT ? [facility] ?[address] [facility] [address] ?[place], [place] [address] ? Patient Name: ??MOHSEN MARQUES ? Med Rec Number: [id number] ? Fin Number: ?[id number] ? Date: ?1955 ? Sex/Age: ? Female 59 years ? Admit Date: ?12/18/2014 ? Discharge Date: 12/18/2014 ? Doctor: ?Medicine , ? Facility: ?[facility] ? Location: ?* Abnormal ??A Alert ??f Footnote ??^ Corrected ??L Low ??H High ?i Interp Data ??@ Ref Lab ? Chart Type:Cumulative ?* * * * MICROBIOLOGY - WOUND and EXUDATES * * * * ?PROCEDURE: Aerobic and Anaerobic Culture, Wound and Gram Stain ? SOURCE: Wound ? COLLECTED: 12/17/15 ??2306 ?BODY SITE: Breast, right ? STARTED: 12/18/ ??0144 ? FREE TEXT SOURCE: ? DIRECT SPECIMEN EXAMINATION ? Stain ? REPORTED: 12/18/14 0544 ? No polymorphonuclear leukocytes seen. ? No organisms seen. ? FINAL REPORT ? REPORTED: 12/22/14 1249 ? Few Mixed skin microorganisms. ?* * * ??Interpretive [...] HISTORICAL RESULTS * All Microbiology Report Section (12/17/2014 12:00 AM CDT) 12/17/2014 Narrative HISTORICAL RESULTS - 12/22/2014 3:48 PM CDT ? [facility] ?[address] [facility] [address] ?[place] [address] ? Patient Name: ??MOHSEN MARQUES ? Med Rec Number: [id number] ? Fin Number: ?[id number] ? Date: ?1955 ? Sex/Age: ? Female 59 years ? Admit Date: ?12/18/2014 ? Discharge Date: 12/18/2014 ? Doctor: ?Medicine , ? Facility: ?[facility] ? Location: ?* Abnormal ??A Alert ??f Footnote ??^ Corrected ??L Low ??H High ?i Interp Data ??@ Ref Lab ? Chart Type:Cumulative ?* * * * MICROBIOLOGY - MOLECULAR TESTING * * * * ?PROCEDURE: Respiratory Pathogen Multiplex PCR ? SOURCE: Nasopharyngeal ? COLLECTED: 12/17/14 ??1833 ?BODY SITE: ? STARTED: 12/17/14 ??2012 ? FREE TEXT SOURCE: ? FINAL REPORT ? REPORTED: 12/17/146 ? Respiratory Pathogen nucleic acids DETECTED (POSITIVE) for the ? following: ? Rhinovirus/Enterovirus ? ORDER COMMENTS ? (1)Testing performed by: [facility], [place] ? [place] [address] ??Testing performed by: [facility], ? [place] [address] ?* * * ??Interpretive Results ??* * * ? (1)The Cantimer (formerly known as Dashbid) ? FilmArray Respiratory Panel (RP) assay is a multiplexed nucleic ? acid test capable of simultaneous qualitative detection and ? identification of multiple respiratory viral and bacterial ? nucleic acids. ??The following bacteria, viruses and virus ? subtypes can be identified using the FilmArray RP assay: ? Bordetella pertussis, Chlamydophila pneumoniae, Mycoplasma ? pneumoniae, Adenovirus, Coronavirus HKU1, Coronavirus NL63, ? Coronavirus 229E, Coronavirus OC43, Influenza A, Influenza A ? subtype H1, Influenza A subtype H3, Influenza A subtype 2009 H1, ? Influenza B, Metapneumovirus, Parainfluenza 1, Parainfluenza 2, ? Parainfluenza 3, Parainfluenza 4, RSV, Rhinovirus/Enterovirus. ? Due to the genetic similarity between human Rhinovirus and ? Enterovirus, the FilmArray RP assay cannot reliably ? differentiate them. Coronavirus OC43 may cross-react with some ? isolates of Coronavirus HKU1. ??A dual positive result may be due ? to cross-reactivity or may indicate a co-infection.A version of ? the FilmArray RP assay updated to include an additional ? adenovirus assay was approved by the FDA in May,. ??The ? updated version has demonstrated improved detection of ? adenoviruses relative to the previous version. ??All of the other ? assays for the 20 targets are unchanged. ??The detection and ? identification of specific viral and bacterial nucleic acids ? from individuals exhibiting signs and symptoms of a respiratory ? infection aids in the diagnosis of respiratory infection if used ? in conjunction with other clinical and epidemiological ? information. ??The results of this test should not be used as the ? sole basis for diagnosis, treatment, or other management ? decisions. ??Negative results in the setting of a respiratory ? illness may be due to infection with pathogens that are not ? detected by this test. ??Positive results do not rule out ? infection/co-infection with other organisms. ??The agent(s) ? detected by the FilmArray RP may not be the definite cause of ? disease. ??Additional testing (lab, imaging, etc) may be ? necessary when evaluating a patient with possible respiratory ? tract infection.The FilmArray RP assay is FDA cleared for SWIMMER ? swabs. ??Additional sample types have been validated according to ? CLIA regulations. ??The performance characteristics of this assay ? have been determined by [facility] Virology ? Lab.Current interpretive data was last revised on 2013. ? us Historical Provider MD LAB MICROBIOLOGY - GENERA L ORDERABLES Final Result HISTORICAL RESULTS * All Microbiology Report Section (12/17/2014 12:00 AM CDT) 12/17/2014 Narrative HISTORICAL RESULTS - 12/22/2014 3:48 PM CDT ? [facility] ?[address] [facility] [address] ?[place], [place] [address] ? Patient Name: ??MOHSEN MARQUES ? Med Rec Number: [id number] ? Fin Number: ?[id number] ? Date: ?1955 ? Sex/Age: ? Female 59 years ? Admit Date: ?12/18/2014 ? Discharge Date: 12/18/2014 ? Doctor: ?Medicine , ? Facility: ?[facility] ? Location: ?* Abnormal ??A Alert ??f Footnote ??^ Corrected ??L Low ??H High ?i Interp Data ??@ Ref Lab ? Chart Type:Cumulative ?* * * * MICROBIOLOGY - MOLECULAR TESTING * * * * ?PROCEDURE: Influenza PCR, Qualitative ? SOURCE: Nasopharyngeal ? COLLECTED: 12/17/14 ??1833 ?BODY SITE: ? STARTED: 12/17/14 ??1857 ? FREE TEXT SOURCE: ? FINAL REPORT ? REPORTED: 12/17/14 2239 ? Flu A target RNA not detected Flu B target RNA not detected ?* * * ??Interpretive Results ??* * * ? (1)This test has been performed using the World[employer] Flu Assay. ? This is a multiplex, real-time reverse transcriptase PCR assay ? that detects and differentiates influenza A, 2009 H1N1 influenza ? A, and influenza B viral RNA. ??This assay has been cleared by ? the US Food and Drug Administration, and its performance ? characteristics have been verified by the [facility] ? Microbiology Laboratory.Current interpretive data was last ? revised on 05/24/2011. ? us Historical Provider LAB MICROBIOLOGY - GENERA L ORDERABLES Final Result HISTORICAL RESULTS documented in this encounter Visit Diagnoses Diagnosis Local infection due to central venous catheter documented in this encounter Care Teams It Infrastructure Project Manager Relationship Specialty Start Date End Date Antoinette Zhu MD [address] [address] PCP - General 08/01/13 07/26/16 documented as of this encounter
--- OUTSIDE RECORDS SUMMARY | 2024-04-26 04:33 | XMS_ITS | Encounter Summary ---
Author Organization [facility] Facility Care Team Providers Care General Inspector Name Role Phone Antoinette Zhu MD Primary Care Provider [phone] Encounter Details Date Type Department Care Team (Late st Contact Info) Description 09/23/2014 - 09/23/2014 11:59 PM CDT Hospital Encounter [facility] Aft, Farzaneh Bell MD PhD [address] [place] [address] Social History Tobacco Use Types Packs/Day Years Used Date Smoking Tobacco: Former Alcohol Use Standard Drinks/Week Comments No 0 (1 standard drink = 0.6 oz pur e alcohol) Comments Unknown Sex and Gender Information Value Date Recorded Sex Assigned at Not on file 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
--- OUTSIDE RECORDS SUMMARY | 2024-04-26 04:33 | XMS_ITS | Encounter Summary ---
Author Organization [facility] Facility Care Team Providers Care Grease Maker Head Name Role Phone Antoinette Zhu MD Primary Care Provider [phone] [phone] Encounter Details Date Type Department Care Team (Late st Contact Info) Description 01/06/2015 7:10 PM CDT - 01/07/2015 5:49 AM [facility] Hospital [facility]counter [facility] MD [address] [place] [address] Chest pain; Personal history of malignant neoplasm of breast; Personal history of pulmonary embolism; Acquired absence of breast and absent nipple; Type 2 or unspecified type diabetes mellitus; Essential hypertension; Encounter for long-term (current) use of other medications Social History Tobacco Use Types Packs/Day Years Used Date Smoking Tobacco: Former Alcohol Use Standard Drinks/Week Comments No 0 (1 standard drink = 0.6 oz pur e alcohol) Comments Unknown Sex and Gender Information Value Date Recorded Sex Assigned at Not on file 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 Gender Identity Not on file Sexual Orientation [...] Associated Diagnosis Comments SERUM TROPONIN I Routine 01/07/2015 2:05 AM CDT DISCHARGE LABORATORY CUMULATIVE REPORT 01/07/2015 CT CHEST W CONTRAST Routine 01/06/2015 1 1:46 PM CDT CHEST RADIOGRAPHY, FRONTAL (AP), LATERAL Routine 01/06/2015 10:14 PM CDT SERUM TROPONIN I Routine 01/06/2015 8:25 PM CDT PLASMA BASIC METABOLIC PANEL Routine 01/06/2015 8:25 PM CDT BLOOD CELL COUNT (CBC) Routine 01/06/2015 8:25 PM CDT BLOOD GLUCOSE, POC Routine 01/06/2015 7: 19 PM CDT documented in this encounter Results * Serum troponin I (01/07/2015 2:05 AM CDT) Troponin I <0.03 0.00 - 0.03 ng/ml HISTORICAL RESULTS Comment: Interpretive Data Serial determinations are recommended for the diagnosis of myocardial infarction (Third Eldred Definition of Myocardial Infarction. ??J Am Wang Cardiol 2012;60:1581-98). Current interpretive data was last revised on 13. Serum 01/07/2015 2:05 AM CDT us Felicitas Joe Counts WOOD CUTTER LAB BLOOD ORDERABLES Final Re sult HISTORICAL RESULTS * DISCHARGE LABORATORY CUMULATIVE REPORT (01/07/2015) Narrative 01/07/2015 Ordered by an unspecified provider. us Historical Provider LAB BLOOD ORDERABLES Deann l Result * CT Chest W Contrast (01/06/2015 11:46 PM CDT) Anatomical Region Laterality Modality Body N/A Computed Tomogra phy 01/06/2015 11:4 6 PM CDT Narrative 01/07/2015 11:07 AM CDT CECELIA BETH M.D. NAYELI LENTZ M.D. FINAL REPORT The radiology attending physician has personally reviewed this study, and has reviewed and/or edited this written report and agrees with it. ACC# ??Date Time ??Exam [id number] Jan 06, 2015 23:46:[address] Chest with contrast EXAMINATION: ?? Computed tomography of the chest with contrast HISTORY: 59-year-old woman with history of breast cancer, status post bilateral mastectomy presented with chest pain TECHNIQUE: Computed tomography of the chest was performed following the uneventful administration of 96 mL Optiray-350 intravenous contrast according to a pulmonary embolism protocol. FINDINGS: No prior study is available for comparison. No pulmonary embolism seen. The lungs are clear of focal consolidation, pulmonary nodules, pleural effusion, or pneumothorax. Tracheal diverticulum is noted. There is no supraclavicular, axillary, mediastinal, or hilar lymphadenopathy. Suppl low attenuating lesions within both thyroid lobes are unchanged. Is persistent stranding, unchanged, within the right lateral chest wall in this patient status post postoperative seroma drainage. The heart size is normal in size and appearance without pericardial effusion. The aorta and great vessels are normal in size and configuration. The esophagus is normal. The visualized upper abdomen demonstrates cholecystectomy clips and a nonobstructing 2 mm calculus within the right kidney. Bone windows demonstrate no suspicious lytic or blastic lesions. IMPRESSION: ?? 1. No pulmonary embolism. Requested By: KRISTINE PHILLIPS M.D. Dictated By: ?? NAYELI LENTZ M.D. ??on Jan 07 2015 12:07A This document has been electronically signed by: CECELIA BETH M.D. on Jan 07 2015 11:07A [id number] Procedure Note Provider, MD Tyler - 08/12/2016 Avery LAM M.D. FINAL REPORT The radiology attending physician has personally reviewed this study, and has reviewed and/or edited this written report and agrees with it. ACC# Date Time Exam [id number] Jan 06, 2015 23:46:[address] Chest with contrast EXAMINATION: Computed tomography of the chest with contrast HISTORY: 59-year-old woman with history of breast cancer, status post bilateral mastectomy presented with chest pain TECHNIQUE: Computed tomography of the chest was performed following the uneventful administration of 96 mL Optiray-350 intravenous contrast according to a pulmonary embolism protocol. FINDINGS: No prior study is available for comparison. No pulmonary embolism seen. The lungs are clear of focal consolidation, pulmonary nodules, pleural effusion, or pneumothorax. Tracheal diverticulum is noted. There is no supraclavicular, axillary, mediastinal, or hilar lymphadenopathy. Suppl low attenuating lesions within both thyroid lobes are unchanged. Is persistent stranding, unchanged, within the right lateral chest wall in this patient status post postoperative seroma drainage. The heart size is normal in size and appearance without pericardial effusion. The aorta and great vessels are normal in size and configuration. The esophagus is normal. The visualized upper abdomen demonstrates cholecystectomy clips and a nonobstructing 2 mm calculus within the right kidney. Bone windows demonstrate no suspicious lytic or blastic lesions. IMPRESSION: 1. No pulmonary embolism. Requested By: KRISTINE PHILLIPS M.D. Dictated By: NAYELI LENTZ M.D. on Jan 07 2015 12:07A This document has been electronically signed by: CECELIA BETH M.D. on Jan 07 2015 11:07A [id number] us Historical Provider MD GARCIA CT PROCEDURES Final R esult * CHEST RADIOGRAPHY, FRONTAL (AP), LATERAL (01/06/2015 10:14 PM CDT) Anatomical Region Laterality Modality N/A Radiographic Lizeth ging 01/06/2015 10:1 4 PM CDT Narrative 01/07/2015 11:07 AM CDT Avery LAM M.D. FINAL REPORT The radiology attending physician has personally reviewed this study, and has reviewed and/or edited this written report and agrees with it. ACC# ??Date Time ??Exam [id number] Jan 06, 2015 22:14:00 [id number] Chest 2 views Frontl & Lat EXAMINATION: ?? Chest two view HISTORY: Breast cancer; Chest pain IMPRESSION: ?? Comparison is made to prior radiograph dated 12/17/2014. Interval removal of the right-sided pigtail catheter. Lungs are clear bilaterally without pneumonic consolidation or pleural effusion. No pulmonary edema or pneumothorax. Cardiomediastinal silhouette is within normal limits. Circular radiopaque densities overlying the patient's neck. Requested By: DEMARCUS BOSWELL M.D. Dictated By: ?? CLINTON MELTON M.D. ??on Jan 06 2015 11:34P This document has been electronically signed by: CECELIA BETH M.D. on Jan 07 2015 11:07A [id number] Procedure Note Provider, MD Tyler - 08/12/2016 Avery LAM M.D. FINAL REPORT The radiology attending physician has personally reviewed this study, and has reviewed and/or edited this written report and agrees with it. ACC# Date Time Exam [id number] Jan 06, 2015 22:14:00 66470 Chest 2 views Frontl & Lat EXAMINATION: Chest two view HISTORY: Breast cancer; Chest pain IMPRESSION: Comparison is made to prior radiograph dated 12/17/2014. Interval removal of the right-sided pigtail catheter. Lungs are clear bilaterally without pneumonic consolidation or pleural effusion. No pulmonary edema or pneumothorax. Cardiomediastinal silhouette is within normal limits. Circular radiopaque densities overlying the patient'sneck. Requested By: DEMARCUS BOSWELL M.D. Dictated By: CLINTON MELTON M.D. on Jan 06 2015 11:34P This document has been electronically signed by: CECELIA BETH M.D. on Jan 07 2015 11:07A [id number] Historical Provider IMG XR PROCEDURES Final R esult * Plasma basic metabolic panel (01/06/2015 8:25 PM CDT) Sodium 136 135 - 145 mmol/L HISTORICAL RESULTS K, pl 4.4 3.3 - 4.9 mmol/L HISTORICAL RESULTS Chloride 98 97 - 110 mmol/L HISTORICAL RESULTS CO2 26 22 - 32 mmol/L HISTORICAL RESULTS A. gap 12 0 - 16 mmol/L HISTORICAL RESULTS Glucose 144 70 - 199 mg/dl HISTORICAL RESULTS BUN 20 8 - 25 mg/dl HISTORICAL RESULTS Creatinine 0.79 0.60 - 1.10 mg/dl HISTORICAL RESULTS Calcium 9.8 8.6 - 10.3 mg/dl HISTORICAL RESULTS Plasma 01/06/2015 8:25 PM CDT Demarcus Boswell MD LAB BLOOD ORDERABLES Final Res ult HISTORICAL RESULTS * Serum troponin I (01/06/2015 8:25 PM CDT) Pathologist [facility] Troponin I <0.03 0.00 - 0.03 ng/ml HISTORICAL RESULTS Comment: Interpretive Data Serial determinations are recommended for the diagnosis of myocardial infarction (Third Eldred Definition of Myocardial Infarction. ??J Am Wang Cardiol 2012;60:1581-98). Current interpretive data was last revised on 13. Serum 01/06/2015 8:25 PM CDT Demarcus Boswell MD LAB BLOOD ORDERABLES Final Res ult HISTORICAL RESULTS * (ABNORMAL) Blood cell count (CBC) (01/06/2015 8:25 PM CDT) WBC 12.5(H) 3.8 - 9.8 K/cumm HISTORICAL RESULTS RBC 4.92 3.90 - 5.00 M/cumm HISTORICAL RESULTS Hgb 13.1 12.1 - 15.1 g/dl HISTORICAL RESULTS Hct 41.1 36.1 - 44.3 % HISTORICAL RESULTS MCV 83.6 80.0 - 97.6 fl HISTORICAL RESULTS MCH 26.5(L) 26.7 - 33.7 pg HISTORICAL RESULTS MCHC 31.8(L) 32.7 - 35.5 g/dl HISTORICAL RESULTS Rdw 14.8(H) 11.8 - 14.6 % HISTORICAL RESULTS Platelets 346 140 - 440 K/cumm HISTORICAL RESULTS MPV 8.2 6.8 - 10.4 fl HISTORICAL RESULTS Neutrophils 64.2 38.7 - 74.5 % HISTORICAL RESULTS Lymphocytes 24.7 20.0 - 54.3 % HISTORICAL RESULTS Monos 6.2 4.3 - 13.5 % HISTORICAL RESULTS Eosinophils 4.4 0.0 - 6.0 % HISTORICAL RESULTS Basophils 0.5 0.0 - 3.0 % HISTORICAL RESULTS Neutrophils, abs 8.1(H) 1.8 - 6.6 K/cumm HISTORICAL RESULTS Lymphocytes, abs 3.1 1.2 - 3.3 K/cumm HISTORICAL RESULTS Monocytes, absolute 0.8 0.2 - 1.2 K/cumm HISTORICAL RESULTS Eosinophils, abs 0.6(H) 0.0 - 0.5 K/cumm HISTORICAL RESULTS Basophils, abs 0.1 0.0 - 0.2 K/cumm HISTORICAL RESULTS Blood specimen (specimen) 01/06/2015 8:25 PM CDT Demarcus Boswell MD LAB BLOOD ORDERABLES Final Res ult HISTORICAL RESULTS * Blood glucose, POC (01/06/2015 7:19 PM CDT) Glucose, POC, bld 135 70 - 199 mg/dl HISTORICAL RESULTS Blood specimen (specimen) 01/06/2015 7:19 PM CDT Historical Provider LAB BLOOD ORDERABLES Deann bowman Result HISTORICAL RESULTS documented in this encounter Visit Diagnoses Diagnosis Chest pain Unspecified chest pain Personal history of malignant neoplasm of breast Personal history of pulmonary embolism Acquired absence of breast and absent nipple Acquired absence of breast and nipple Type 2 or unspecified type diabetes mellitus Essential hypertension Unspecified essential hypertension Encounter for long-term (current) use of other medications documented in this encounter Care Teams Grease Maker Head Relationship Specialty Start Date End Date Antoinette Zhu MD [address] [address] PCP - General 08/01/13 07/26/16 documented as of this encounter
--- OUTSIDE RECORDS SUMMARY | 2024-04-26 04:33 | XMS_ITS | Encounter Summary ---
Author Organization [facility] Facility Care Team Providers Care Terrazzo Mechanic Helper Name Role Phone Antoinette Zhu MD Primary Care Provider [phone] Encounter Details Date Type Department Care Team (Late st Contact Info) Description 10/20/2014 - 10/20/2014 11:59 PM CDT Hospital Encounter [facility] Khris Arthur MD [address] [facility] [address] [place] [address] Malignant neoplasm of breast (female) (CMS/HCC) Social History Tobacco Use Types Packs/Day Years Used Date Smoking Tobacco: Former Alcohol Use Standard Drinks/Week Comments No 0 (1 standard drink = 0.6 oz pur e alcohol) Comments Unknown Sex and Gender Information Value Date Recorded Sex Assigned at Not on file 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
--- OUTSIDE RECORDS SUMMARY | 2024-04-26 04:33 | XMS_ITS | Encounter Summary ---
Author Organization [facility] Facility Care Team Providers Care Domestic Violence Advocate Name Role Phone Antoinette Zhu MD Primary Care Provider [phone] Encounter Details Date Type Department Care Team (Late st Contact Info) Description 08/28/2014 - 08/28/2014 11:59 PM CDT Hospital Encounter [facility] Aft, Farzaneh Bell MD PhD [address] [place] [address] Social History Tobacco Use Types Packs/Day Years Used Date Smoking Tobacco: Former Alcohol Use Standard Drinks/Week Comments No 0 (1 standard drink = 0.6 oz pur e alcohol) Comments Unknown Sex and Gender Information Value Date Recorded Sex Assigned at Not on file 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
--- OUTSIDE RECORDS SUMMARY | 2024-04-26 04:33 | XMS_ITS | Encounter Summary ---
Author Organization [facility] Facility Care Team Providers Care Hydraulic Elevator Constructor Name Role Phone Antoinette Zhu MD Primary Care Provider [phone] Encounter Details Date Type Department Care Team (Latest Contact Info) Description 11/23/2014 11:27 PM CDT - 11/26/2014 5:11 PM T Hospital Encounter [facility] Infection and inflammatory reaction due to other vascular device, implant, and graft (CMS/HCC); Cellulitis and abscess of trunk; Malignant neoplasm of breast (female) (CMS/HCC); Body mass index (BMI) of 45.0-49.9 in adult (CMS/HCC); Other postoperative infection; Seroma complicating a procedure (CMS/HCC); Other streptococcus infection in conditions classified elsewhere and of unspecified site; Methicillin resistant Staphylococcus aureus infection; Type 2 or unspecified type diabetes mellitus; Essential hypertension; Restless legs syndrome; Anxiety state; Insomnia; Obesity; Acquired absence of breast and absent nipple; Estrogen receptor positive; 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; Family history of malignant neoplasm of breast; Family history of malignant neoplasm of gastrointestinal tract; Family history of malignant neoplasm of prostate; Personal history of tobacco use, presenting hazards to health; Other specified procedure as the cause of abnormal reaction of patient or of later complication; Removal of organ causing abnormal patient reaction, or later complication Social History Tobacco Use Types Packs/Day Years Used Date Smoking Tobacco: Former Alcohol Use Standard Drinks/Week Comments No 0 (1 standard drink = 0.6 oz pur e alcohol) Comments Unknown Sex and Gender Information Value Date Recorded Sex Assigned at Not on file 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 Gender Identity Not on file Sexual Orientation Not on file documented as of this encounter Last Filed Vital Signs Vital Sign Reading Time Taken Comments Blood Pressure 112/46 11/26/2014 12:39 PM CDT Pulse 82 11/26/2014 12:39 PM CDT Temperature - - Respiratory Rate - - Oxygen Saturation 100% 11/26/2014 12:39 PM CDT Inhaled Oxygen Concentration - - Weight 117 kg (257 lb 15.7 oz) 11/23/2014 11:52 PM CDT Height 154.9 cm (5' 1 ) 11/23/2014 11:52 PM CDT Body Mass Index 48.75 11/23/2014 11:52 PM CDT documented in this encounter Medications [...] Associated Diagnosis Comments BLOOD GLUCOSE, POC Routine 11/26/2014 12 :34 PM CDT BLOOD GLUCOSE, POC Routine 11/26/2014 7: 18 AM CDT PLASMA BASIC METABOLIC PANEL Routine 11/26/2014 3:17 AM CDT BLOOD CELL COUNT (CBC) Routine 11/26/2014 3:17 AM CDT DISCHARGE LABORATORY CUMULATIVE REPORT 11/26/2014 SERUM VANCOMYCIN, TROUGH DRUG LEVEL Routine 11/25/2014 10:16 PM CDT BLOOD GLUCOSE, POC Routine 11/25/2014 7: 51 PM CDT BLOOD GLUCOSE, POC Routine 11/25/2014 5: 07 PM CDT ABSCESS CATHETER INJECTION Routine 11/25/2014 2:06 PM CDT ABSCESS CATHETER INJECTION Routine 11/25/2014 2:06 PM CDT FISTULOGRAM ABSCESS SINUS TRACT Routine 11/25/2014 2:06 PM CDT FISTULOGRAM ABSCESS SINUS TRACT Routine 11/25/2014 2:06 PM CDT BLOOD GLUCOSE, POC Routine 11/25/2014 7: 43 AM CDT PLASMA BASIC METABOLIC PANEL Routine 11/25/2014 12:31 AM CDT BLOOD CELL COUNT (CBC) Routine 11/25/2014 12:31 AM CDT BLOOD GLUCOSE, POC Routine 11/24/2014 4: 59 PM CDT BLOOD GLUCOSE, POC Routine 11/24/2014 11 :56 AM CDT BLOOD GLUCOSE, POC Routine 11/24/2014 7: 26 AM CDT BLOOD GLUCOSE, POC Routine 11/24/2014 2: 51 AM CDT AEROBIC CULTURE AND GRAM STAIN, CDR Routine 11/23/2014 10:03 PM CDT AEROBIC CULTURE AND GRAM STAIN, CDR Routine 11/23/2014 10:03 PM CDT CHEST RADIOGRAPHY, FRONTAL (AP), LATERAL Routine 11/23/2014 9:05 PM CDT SERUM TROPONIN I Routine 11/23/2014 8:13 PM CDT SERUM MAGNESIUM Routine 11/23/2014 8:13 PM CDT PLASMA PHOSPHORUS Routine 11/23/2014 8:1 3 PM CDT PLASMA HEPATIC FUNCTION PANEL Routine 11/23/2014 8:13 PM CDT PLASMA BASIC METABOLIC PANEL Routine 11/23/2014 8:13 PM CDT BLOOD LACTIC ACID Routine 11/23/2014 8:1 3 PM CDT BLOOD CELL COUNT (CBC) Routine 11/23/2014 8:13 PM CDT ALL MICROBIOLOGY REPORT SECTION Routine 11/23/2014 12:00 AM CDT ALL MICROBIOLOGY REPORT SECTION Routine 11/23/2014 12:00 AM CDT documented in this encounter Results * Blood glucose, POC (11/26/2014 12:34 PM CDT) Glucose, POC, bld 87 70 - 199 mg/dl HISTORICAL RESULTS Blood specimen (specimen) 11/26/2014 12:34 PM CDT us Gil Pruitt MD PhD LAB BLOOD ORDERABLE S Final Result HISTORICAL RESULTS * Blood glucose, POC (11/26/2014 7:18 AM CDT) Glucose, POC, bld 83 70 - 199 mg/dl HISTORICAL RESULTS Blood specimen (specimen) 11/26/2014 7:18 AM CDT Gil Pruitt MD PhD LAB BLOOD ORDERABLE S Final Result Performing Organization Address [facility] [place]/[facility]/ZIP Co de Phone Number HISTORICAL RESULTS * Plasma basic metabolic panel (11/26/2014 3:17 AM CDT) [facility] Sodium 135 135 - 145 mmol/L HISTORICAL RESULTS K, pl 4.5 3.3 - 4.9 mmol/L HISTORICAL RESULTS Chloride 104 97 - 110 mmol/L HISTORICAL RESULTS CO2 24 22 - 32 mmol/L HISTORICAL RESULTS A. gap 7 0 - 16 mmol/L HISTORICAL RESULTS Glucose 108 70 - 199 mg/dl HISTORICAL RESULTS BUN 23 8 - 25 mg/dl HISTORICAL RESULTS Creatinine 0.79 0.60 - 1.10 mg/dl HISTORICAL RESULTS Calcium 9.0 8.6 - 10.3 mg/dl HISTORICAL RESULTS Plasma 11/26/2014 3:17 AM CDT Lester Vegas MD PhD LAB BLOOD ORDERABLES Fin al Result Performing Organization Address [facility] [place]/[facility] de Phone Number HISTORICAL RESULTS * (ABNORMAL) Blood cell count (CBC) (11/26/2014 3:17 AM CDT) [facility] WBC 9.7 3.8 - 9.8 K/cumm HISTORICAL RESULTS RBC 3.58(L) 3.90 - 5.00 M/cumm HISTORICAL RESULTS Hgb 9.9(L) 12.1 - 15.1 g/dl HISTORICAL RESULTS Hct 30.8(L) 36.1 - 44.3 % HISTORICAL RESULTS MCV 85.9 80.0 - 97.6 fl HISTORICAL RESULTS MCH 27.7 26.7 - 33.7 pg HISTORICAL RESULTS MCHC 32.3(L) 32.7 - 35.5 g/dl HISTORICAL RESULTS Rdw 14.2 11.8 - 14.6 % HISTORICAL RESULTS Platelets 224 140 - 440 K/cumm HISTORICAL RESULTS MPV 8.2 6.8 - 10.4 fl HISTORICAL RESULTS Neutrophils 53.8 38.7 - 74.5 % HISTORICAL RESULTS Lymphocytes 33.6 20.0 - 54.3 % HISTORICAL RESULTS Monos 6.1 4.3 - 13.5 % HISTORICAL RESULTS Eosinophils 6.2(H) 0.0 - 6.0 % HISTORICAL RESULTS Basophils 0.3 0.0 - 3.0 % HISTORICAL RESULTS Neutrophils, abs 5.2 1.8 - 6.6 K/cumm HISTORICAL RESULTS Lymphocytes, abs 3.3 1.2 - 3.3 K/cumm HISTORICAL RESULTS Monocytes, absolute 0.6 0.2 - 1.2 K/cumm HISTORICAL RESULTS Eosinophils, abs 0.6(H) 0.0 - 0.5 K/cumm HISTORICAL RESULTS Basophils, abs 0.0 0.0 - 0.2 K/cumm HISTORICAL RESULTS Blood specimen (specimen) 11/26/2014 3:17 AM CDT Result [facility] Lester Vegas MD PhD LAB BLOOD ORDERABLES Fin al Result Performing Organization Address [facility] [place]/[facility] de Phone Number HISTORICAL RESULTS * DISCHARGE LABORATORY CUMULATIVE REPORT (11/26/2014) Narrative 11/26/2014 Ordered by an unspecified provider. [facility] Provider LAB BLOOD ORDERABLES Deann l Result * Serum vancomycin, trough drug level (11/25/2014 10:16 PM CDT) Vancomycin, trough 17.0 10.0 - 20.9 mcg/ml HISTORICAL RESULTS Comment: Interpretive Data Therapeutic Range: ?? Uncomplicated skin and soft tissue infections: 10-20 mcg/mL ?? All other infections: ??15-20 mcg/mL Current interpretive data was last revised on 12. Serum 11/25/2014 10:1 6 PM CDT Lester Vegas MD PhD LAB BLOOD ORDERABLES Fin al Result Performing Organization Address [facility] de Phone Number HISTORICAL RESULTS * Blood glucose, POC (11/25/2014 7:51 PM CDT) Glucose, POC, bld 113 70 - 199 mg/dl HISTORICAL RESULTS Blood specimen (specimen) 11/25/2014 7:51 PM CDT Gil Pruitt MD PhD LAB BLOOD ORDERABLE S Final Result Performing Organization Address [facility] de Phone Number HISTORICAL RESULTS * Blood glucose, POC (11/25/2014 5:07 PM CDT) Glucose, POC, bld 95 70 - 199 mg/dl HISTORICAL RESULTS Blood specimen (specimen) 11/25/2014 5:07 PM CDT Gil Pruitt MD PhD LAB BLOOD ORDERABLE S Final Result Performing Organization Address [facility] Phone Number HISTORICAL RESULTS * Fistulogram Abscess Sinus Tract (11/25/2014 2:06 PM CDT) Anatomical Region Laterality Modality Head and Neck N/A X-Ray Angiograph y 11/25/2014 2:06 PM CDT Narrative 11/26/2014 9:21 AM CDT NAYELI SEGOVIA M.D. TAHIR HUIZAR M.D. FINAL REPORT The radiology attending physician has personally reviewed this study, and has reviewed and/or edited this written report and agrees with it. ACC# ??Date Time ??Exam [id number] Nov 25, 2014 14:06:00 [id number] Inj Sin/Abs,S&I [id number] Nov 25, 2014 14:06:00 [id number] Inj Abscess Cat [id number] Nov 25, 2014 14:06:00 [id number] Inj Sin/Abs,S&I [id number] Nov 25, 2014 14:06:00 [id number] Inj Abscess Cat EXAMINATION: ?DRAINAGE CATHETER EVALUATION AND REMOVAL HISTORY: 59-year-old woman with breast cancer status post mastectomy with bilateral chest wall seromas. Her drains are patent a 5 to 10 mL per day of serous fluid. She is here for drain checks and possible removal. ATTENDING PRESENCE: Dr. Nayeli Segovia, the attending radiologist, was present from the beginning to the end of the procedure. SEDATION: The patient did not require conscious sedation for the procedure. TECHNIQUE: Prior to beginning the procedure, [place] Protocol was used to confirm the patient's identity and planned procedure. Fluoroscopy time has been recorded in the electronic medical record. After obtaining a oil well cable tool driller image, the right chest wall catheter was injected with dilute contrast and multiple fluoroscopic images obtained. The sutures on the catheter were cut and the catheter was removed without difficulty. A sterile dressing was applied to the skin site. The same technique was used to evaluate the contralateral chest wall drain. ESTIMATED BLOOD LOSS: Minimal DISCHARGED TO: Recovery and then to inpatient unit. ?? CONDITION: Stable FINDINGS: Images from the right chest wall catheter check demonstrate interval decrease in cavity size which is still moderate, without fistula formation. The catheter was draining serous fluid. Images from the left chest wall catheter check demonstrate minimal residual cavity without fistula formation. The catheter was draining serous fluid. This left chest wall drain was removed. IMPRESSION: ?? 1. Interval decrease in size of the right chest wall fluid collection which is still moderate in size. The catheter was maintained to a bag. 2. Minimal residual left chest wall fluid collection. The left chest wall drain was removed. PLAN: Continue to monitor catheter output as well as the patient's clinical condition. ?? The catheter should be flushed with 10 mL of saline per day and maintained to bag. ?? The patient will follow-up with us in 3 weeks. If questions arise, please contact us by calling [phone]. Requested By: LESTER VEGAS M.D. Dictated By: ?? TAHIR HUIZAR M.D. ??on Nov ??4 2014 ??3:51P This document has been electronically signed by: NAYELI SEGOVIA M.D. on Nov ??5 2014 ??9:21A [id number] Procedure Note Provider, MD Tyler - 08/12/2016 NAYELI SEGOVIA M.D. TAHIR HUIZAR M.D. FINAL REPORT The radiology attending physician has personally reviewed this study, and has reviewed and/or edited this written report and agrees with it. ACC# Date Time Exam [id number] Nov 25, 2014 14:06:00 [id number] Inj Sin/Abs,S&I [id number] Nov 25, 2014 14:06:00 [id number] Inj Abscess Cat [id number] Nov 25, 2014 14:06:00 [id number] Inj Sin/Abs,S&I [id number] Nov 25, 2014 14:06:00 [id number] Inj Abscess Cat EXAMINATION: DRAINAGE CATHETER EVALUATION AND REMOVAL HISTORY: 59-year-old woman with breast cancer status post mastectomy with bilateral chest wall seromas. Her drains are patent a 5 to 10 mL per day of serous fluid. She is here for drain checks and possible removal. ATTENDING PRESENCE: Dr. Nayeli Segovia, the attending radiologist, was present from the beginning to the end of the procedure. SEDATION: The patient did not require conscious sedation for the procedure. TECHNIQUE: Prior to beginning the procedure, [place] Protocol was used to confirm the patient's identity and planned procedure. Fluoroscopy time has been recorded in the electronic medical record. After obtaining a oil well cable tool driller image, the right chest wall catheter was injected with dilute contrast and multiple fluoroscopic images obtained. The sutures on the catheter were cut and the catheter was removed without difficulty. A sterile dressing was applied to the skin site. The same technique was used to evaluate the contralateral chest wall drain. ESTIMATED BLOOD LOSS: Minimal DISCHARGED TO: Recovery and then to inpatient unit. CONDITION: Stable FINDINGS: Images from the right chest wall catheter check demonstrate interval decrease in cavity size which is still moderate, without fistula formation. The catheter was draining serous fluid. Images from the left chest wall catheter check demonstrate minimal residual cavity without fistula formation. The catheter was draining serous fluid. This left chest wall drain was removed. IMPRESSION: 1. Interval decrease in size of the right chest wall fluid collection which is still moderate in size. The catheter was maintained to a bag. 2. Minimal residual left chest wall fluid collection. The left chest wall drain was removed. PLAN: Continue to monitor catheter output as well as the patient's clinical condition. The catheter should be flushed with 10 mL of saline per day and maintained to bag. The patient will follow-up with us in 3 weeks. If questions arise, please contact us by calling [phone]. Requested By: LESTER VEGAS M.D. Dictated By: TAHIR HUIZAR M.D. on Nov 25 2014 3:51P This document has been electronically signed by: NAYELI SEGOVIA M.D. on Nov 26 2014 9:21A [id number] us Historical Provider MD GARCIA IR PROCEDURES Final R esult * Inject Abscess Catheter (11/25/2014 2:06 PM CDT) Anatomical Region Laterality Modality Body N/A X-Ray Angiograph y 11/25/2014 2:06 PM CDT Narrative 11/26/2014 9:21 AM CDT NAYELI SEGOVIA M.D. TAHIR HUIZAR M.D. FINAL REPORT The radiology attending physician has personally reviewed this study, and has reviewed and/or edited this written report and agrees with it. ACC# ??Date Time ??Exam [id number] Nov 25, 2014 14:06:00 [id number] Inj Sin/Abs,S&I [id number] Nov 25, 2014 14:06:00 [id number] Inj Abscess Cat [id number] Nov 25, 2014 14:06:00 23461 Inj Sin/Abs,S&I [id number] Nov 25, 2014 14:06:00 [id number] Inj Abscess Cat EXAMINATION: ?DRAINAGE CATHETER EVALUATION AND REMOVAL HISTORY: 59-year-old woman with breast cancer status post mastectomy with bilateral chest wall seromas. Her drains are patent a 5 to 10 mL per day of serous fluid. She is here for drain checks and possible removal. ATTENDING PRESENCE: Dr. Nayeli Segovia, the attending radiologist, was present from the beginning to the end of the procedure. SEDATION: The patient did not require conscious sedation for the procedure. TECHNIQUE: Prior to beginning the procedure, [place] Protocol was used to confirm the patient's identity and planned procedure. Fluoroscopy time has been recorded in the electronic medical record. After obtaining a oil well cable tool driller image, the right chest wall catheter was injected with dilute contrast and multiple fluoroscopic images obtained. The sutures on the catheter were cut and the catheter was removed without difficulty. A sterile dressing was applied to the skin site. The same technique was used to evaluate the contralateral chest wall drain. ESTIMATED BLOOD LOSS: Minimal DISCHARGED TO: Recovery and then to inpatient unit. ?? CONDITION: Stable FINDINGS: Images from the right chest wall catheter check demonstrate interval decrease in cavity size which is still moderate, without fistula formation. The catheter was draining serous fluid. Images from the left chest wall catheter check demonstrate minimal residual cavity without fistula formation. The catheter was draining serous fluid. This left chest wall drain was removed. IMPRESSION: ?? 1. Interval decrease in size of the right chest wall fluid collection which is still moderate in size. The catheter was maintained to a bag. 2. Minimal residual left chest wall fluid collection. The left chest wall drain was removed. PLAN: Continue to monitor catheter output as well as the patient's clinical condition. ?? The catheter should be flushed with 10 mL of saline per day and maintained to bag. ?? The patient will follow-up with us in 3 weeks. If questions arise, please contact us by calling [phone]. Requested By: LESTER VEGAS M.D. Dictated By: ?? TAHIR HUIZAR M.D. ??on Nov ??4 2014 ??3:51P This document has been electronically signed by: NAYELI SEGOVIA M.D. on Nov ??2014 ??9:21A Procedure Note Provider, MD Tyler - 08/12/2016 NAYELI SEGOVIA M.D. TAHIR HUIZAR M.D. FINAL REPORT The radiology attending physician has personally reviewed this study, and has reviewed and/or edited this written report and agrees with it. ACC# Date Time Exam [id number] Nov 25, 2014 14:06:00 [id number] Inj Sin/Abs,S&I [id number] Nov 25, 2014 14:06:00 [id number] Inj Abscess Cat [id number] Nov 25, 2014 14:06:00 [id number] Inj Sin/Abs,S&I [id number] Nov 25, 2014 14:06:00 [id number] Inj Abscess Cat EXAMINATION: DRAINAGE CATHETER EVALUATION AND REMOVAL HISTORY: 59-year-old woman with breast cancer status post mastectomy with bilateral chest wall seromas. Her drains are patent a 5 to 10 mL per day of serous fluid. She is here for drain checks and possible removal. ATTENDING PRESENCE: Dr. Nayeli Segovia, the attending radiologist, was present from the beginning to the end of the procedure. SEDATION: The patient did not require conscious sedation for the procedure. TECHNIQUE: Prior to beginning the procedure, [place] Protocol was used to confirm the patient's identity and planned procedure. Fluoroscopy time has been recorded in the electronic medical record. After obtaining a oil well cable tool driller image, the right chest wall catheter was injected with dilute contrast and multiple fluoroscopic images obtained. The sutures on the catheter were cut and the catheter was removed without difficulty. A sterile dressing was applied to the skin site. The same technique was used to evaluate the contralateral chest wall drain. ESTIMATED BLOOD LOSS: Minimal DISCHARGED TO: Recovery and then to inpatient unit. CONDITION: Stable FINDINGS: Images from the right chest wall catheter check demonstrate interval decrease in cavity size which is still moderate, without fistula formation. The catheter was draining serous fluid. Images from the left chest wall catheter check demonstrate minimal residual cavity without fistula formation. The catheter was draining serous fluid. This left chest wall drain was removed. IMPRESSION: 1. Interval decrease in size of the right chest wall fluid collection which is still moderate in size. The catheter was maintained to a bag. 2. Minimal residual left chest wall fluid collection. The left chest wall drain was removed. PLAN: Continue to monitor catheter output as well as the patient's clinical condition. The catheter should be flushed with 10 mL of saline per day and maintained to bag. The patient will follow-up with us in 3 weeks. If questions arise, please contact us by calling [phone]. Requested By: LESTER VEGAS M.D. Dictated By: TAHIR HUIZAR M.D. on Nov 25 2014 3:51P This document has been electronically signed by: NAYELI SEGOVIA M.D. on Nov 26 2014 9:21A us Historical Provider MD GARCIA IR PROCEDURES Final R esult * Inject Abscess Catheter (11/25/2014 2:06 PM CDT) Anatomical Region Laterality Modality Body N/A X-Ray Angiograph y 11/25/2014 2:06 PM CDT Narrative 11/26/2014 9:21 AM CDT NAYELI SEGOVIA M.D. TAHIR HUIZAR M.D. FINAL REPORT The radiology attending physician has personally reviewed this study, and has reviewed and/or edited this written report and agrees with it. ACC# ??Date Time ??Exam [id number] Nov 25, 2014 14:06:00 06301 Inj Sin/Abs,S&I [id number] Nov 25, 2014 14:06:00 [id number] Inj Abscess Cat [id number] Nov 25, 2014 14:06:00 [id number] Inj Sin/Abs,S&I [id number] Nov 25, 2014 14:06:00 [id number] Inj Abscess Cat EXAMINATION: ?DRAINAGE CATHETER EVALUATION AND REMOVAL HISTORY: 59-year-old woman with breast cancer status post mastectomy with bilateral chest wall seromas. Her drains are patent a 5 to 10 mL per day of serous fluid. She is here for drain checks and possible removal. ATTENDING PRESENCE: Dr. Nayeli Segovia, the attending radiologist, was present from the beginning to the end of the procedure. SEDATION: The patient did not require conscious sedation for the procedure. TECHNIQUE: Prior to beginning the procedure, [place] Protocol was used to confirm the patient's identity and planned procedure. Fluoroscopy time has been recorded in the electronic medical record. After obtaining a oil well cable tool driller image, the right chest wall catheter was injected with dilute contrast and multiple fluoroscopic images obtained. The sutures on the catheter were cut and the catheter was removed without difficulty. A sterile dressing was applied to the skin site. The same technique was used to evaluate the contralateral chest wall drain. ESTIMATED BLOOD LOSS: Minimal DISCHARGED TO: Recovery and then to inpatient unit. ?? CONDITION: Stable FINDINGS: Images from the right chest wall catheter check demonstrate interval decrease in cavity size which is still moderate, without fistula formation. The catheter was draining serous fluid. Images from the left chest wall catheter check demonstrate minimal residual cavity without fistula formation. The catheter was draining serous fluid. This left chest wall drain was removed. IMPRESSION: ?? 1. Interval decrease in size of the right chest wall fluid collection which is still moderate in size. The catheter was maintained to a bag. 2. Minimal residual left chest wall fluid collection. The left chest wall drain was removed. PLAN: Continue to monitor catheter output as well as the patient's clinical condition. ?? The catheter should be flushed with 10 mL of saline per day and maintained to bag. ?? The patient will follow-up with us in 3 weeks. If questions arise, please contact us by calling [phone]. Requested By: LESTER VEGAS M.D. Dictated By: ?? TAHIR HUIZAR M.D. ??on Nov ??2014 ??3:51P This document has been electronically signed by: NAYELI SEGOVIA M.D. on Nov ??2014 ??9:21A Procedure Note Provider, MD Tyler - 08/12/2016 Avery MACDONALD M.D. FINAL REPORT The radiology attending physician has personally reviewed this study, and has reviewed and/or edited this written report and agrees with it. [facility]# Date Time Exam [id number] Nov 25, 2014 14:06:00 [id number] Inj Sin/Abs,S&I [id number] Nov 25, 2014 14:06:00 [id number] Inj Abscess Cat [id number] Nov 25, 2014 14:06:00 [id number] Inj Sin/Abs,S&I [id number] Nov 25, 2014 14:06:00 [id number] Inj Abscess Cat EXAMINATION: DRAINAGE CATHETER EVALUATION AND REMOVAL HISTORY: 59-year-old woman with breast cancer status post mastectomy with bilateral chest wall seromas. Her drains are patent a 5 to 10 mL per day of serous fluid. She is here for drain checks and possible removal. ATTENDING PRESENCE: Dr. Nayeli Segovia, the attending radiologist, was present from the beginning to the end of the procedure. SEDATION: The patient did not require conscious sedation for the procedure. TECHNIQUE: Prior to beginning the procedure, [place] Protocol was used to confirm the patient's identity and planned procedure. Fluoroscopy time has been recorded in the electronic medical record. After obtaining a oil well cable tool driller image, the right chest wall catheter was injected with dilute contrast and multiple fluoroscopic images obtained. The sutures on the catheter were cut and the catheter was removed without difficulty. A sterile dressing was applied to the skin site. The same technique was used to evaluate the contralateral chest wall drain. ESTIMATED BLOOD LOSS: Minimal DISCHARGED TO: Recovery and then to inpatient unit. CONDITION: Stable FINDINGS: Images from the right chest wall catheter check demonstrate interval decrease in cavity size which is still moderate, without fistula formation. The catheter was draining serous fluid. Images from the left chest wall catheter check demonstrate minimal residual cavity without fistula formation. The catheter was draining serous fluid. This left chest wall drain was removed. IMPRESSION: 1. Interval decrease in size of the right chest wall fluid collection which is still moderate in size. The catheter was maintained to a bag. 2. Minimal residual left chest wall fluid collection. The left chest wall drain was removed. PLAN: Continue to monitor catheter output as well as the patient's clinical condition. The catheter should be flushed with 10 mL of saline per day and maintained to bag. The patient will follow-up with us in 3 weeks. If questions arise, please contact us by calling [phone]. Requested By: LESTER VEGAS M.D. Dictated By: TAHIR HUIZAR M.D. on Nov 25 2014 3:51P This document has been electronically signed by: NAYELI SEGOVIA M.D. on Nov 26 2014 9:21A us Historical Provider MD GARCIA IR PROCEDURES Final R esult * Fistulogram Abscess Sinus Tract (11/25/2014 2:06 PM CDT) Anatomical Region Laterality Modality Head and Neck N/A Radiographic Lizeth ging 11/25/2014 2:06 PM CDT Narrative 11/26/2014 9:21 AM CDT NAYELI SEGOVIA M.D. TAHIR HUIZAR M.D. FINAL REPORT The radiology attending physician has personally reviewed this study, and has reviewed and/or edited this written report and agrees with it. ACC# ??Date Time ??Exam [id number] Nov 25, 2014 14:06:00 35042 Inj Sin/Abs,S&I [id number] Nov 25, 2014 14:06:00 66660 Inj Abscess Cat [id number] Nov 25, 2014 14:06:00 51912 Inj Sin/Abs,S&I [id number] Nov 25, 2014 14:06:00 17439 Inj Abscess Cat EXAMINATION: ?DRAINAGE CATHETER EVALUATION AND REMOVAL HISTORY: 59-year-old woman with breast cancer status post mastectomy with bilateral chest wall seromas. Her drains are patent a 5 to 10 mL per day of serous fluid. She is here for drain checks and possible removal. ATTENDING PRESENCE: Dr. Nayeli Segovia, the attending radiologist, was present from the beginning to the end of the procedure. SEDATION: The patient did not require conscious sedation for the procedure. TECHNIQUE: Prior to beginning the procedure, [place] Protocol was used to confirm the patient's identity and planned procedure. Fluoroscopy time has been recorded in the electronic medical record. After obtaining a oil well cable tool driller image, the right chest wall catheter was injected with dilute contrast and multiple fluoroscopic images obtained. The sutures on the catheter were cut and the catheter was removed without difficulty. A sterile dressing was applied to the skin site. The same technique was used to evaluate the contralateral chest wall drain. ESTIMATED BLOOD LOSS: Minimal DISCHARGED TO: Recovery and then to inpatient unit. ?? CONDITION: Stable FINDINGS: Images from the right chest wall catheter check demonstrate interval decrease in cavity size which is still moderate, without fistula formation. The catheter was draining serous fluid. Images from the left chest wall catheter check demonstrate minimal residual cavity without fistula formation. The catheter was draining serous fluid. This left chest wall drain was removed. IMPRESSION: ?? 1. Interval decrease in size of the right chest wall fluid collection which is still moderate in size. The catheter was maintained to a bag. 2. Minimal residual left chest wall fluid collection. The left chest wall drain was removed. PLAN: Continue to monitor catheter output as well as the patient's clinical condition. ?? The catheter should be flushed with 10 mL of saline per day and maintained to bag. ?? The patient will follow-up with us in 3 weeks. If questions arise, please contact us by calling [phone]. Requested By: LESTER VEGAS M.D. Dictated By: ?? TAHIR HUIZAR M.D. ??on Nov ??4 2014 ??3:51P This document has been electronically signed by: NAYELI SEGOVIA M.D. on Nov ??5 2014 ??9:21A Procedure Note Provider, MD Tyler - 08/12/2016 NAYELI SEGOVIA M.D. TAHIR HUIZAR M.D. FINAL REPORT The radiology attending physician has personally reviewed this study, and has reviewed and/or edited this written report and agrees with it. ACC# Date Time Exam [id number] Nov 25, 2014 14:06:00 95994 Inj Sin/Abs,S&I [id number] Nov 25, 2014 14:06:00 21138 Inj Abscess Cat [id number] Nov 25, 2014 14:06:00 98154 Inj Sin/Abs,S&I [id number] Nov 25, 2014 14:06:00 15828 Inj Abscess Cat EXAMINATION: DRAINAGE CATHETER EVALUATION AND REMOVAL HISTORY: 59-year-old woman with breast cancer status post mastectomy with bilateral chest wall seromas. Her drains are patent a 5 to 10 mL per day of serous fluid. She is here for drain checks and possible removal. ATTENDING PRESENCE: Dr. Nayeli Segovia, the attending radiologist, was present from the beginning to the end of the procedure. SEDATION: The patient did not require conscious sedation for the procedure. TECHNIQUE: Prior to beginning the procedure, [place] Protocol was used to confirm the patient's identity and planned procedure. Fluoroscopy time has been recorded in the electronic medical record. After obtaining a oil well cable tool driller image, the right chest wall catheter was injected with dilute contrast and multiple fluoroscopic images obtained. The sutures on the catheter were cut and the catheter was removed without difficulty. A sterile dressing was applied to the skin site. The same technique was used to evaluate the contralateral chest wall drain. ESTIMATED BLOOD LOSS: Minimal DISCHARGED TO: Recovery and then to inpatient unit. CONDITION: Stable FINDINGS: Images from the right chest wall catheter check demonstrate interval decrease in cavity size which is still moderate, without fistula formation. The catheter was draining serous fluid. Images from the left chest wall catheter check demonstrate minimal residual cavity without fistula formation. The catheter was draining serous fluid. This left chest wall drain was removed. IMPRESSION: 1. Interval decrease in size of the right chest wall fluid collection which is still moderate in size. The catheter was maintained to a bag. 2. Minimal residual left chest wall fluid collection. The left chest wall drain was removed. PLAN: Continue to monitor catheter output as well as the patient's clinical condition. The catheter should be flushed with 10 mL of saline per day and maintained to bag. The patient will follow-up with us in 3 weeks. If questions arise, please contact us by calling [phone]. Requested By: LESTER VEGAS M.D. Dictated By: TAHIR HUIZAR M.D. on Nov 25 2014 3:51P This document has been electronically signed by: NAYELI SEGOVIA M.D. on Nov 26 2014 9:21A us Historical Provider IMMichael IR PROCEDURES Final R esult * Blood glucose, POC (11/25/2014 7:43 AM CDT) Glucose, POC, bld 103 70 - 199 mg/dl HISTORICAL RESULTS Blood specimen (specimen) 11/25/2014 7:43 AM CDT Gil Pruitt MD PhD LAB BLOOD ORDERABLE S Final Result HISTORICAL RESULTS * Plasma basic metabolic panel (11/25/2014 12:31 AM CDT) Sodium 137 135 - 145 mmol/L HISTORICAL RESULTS K, pl 4.5 3.3 - 4.9 mmol/L HISTORICAL RESULTS Chloride 103 97 - 110 mmol/L HISTORICAL RESULTS CO2 27 22 - 32 mmol/L HISTORICAL RESULTS A. gap 7 0 - 16 mmol/L HISTORICAL RESULTS Glucose 126 70 - 199 mg/dl HISTORICAL RESULTS BUN 25 8 - 25 mg/dl HISTORICAL RESULTS Creatinine 0.91 0.60 - 1.10 mg/dl HISTORICAL RESULTS Calcium 9.4 8.6 - 10.3 mg/dl HISTORICAL RESULTS Plasma 11/25/2014 12:3 1 AM CDT us Lester Vegas MD PhD LAB BLOOD ORDERABLES Fin al Result HISTORICAL RESULTS * (ABNORMAL) Blood cell count (CBC) (11/25/2014 12:31 AM CDT) Pathologist [facility] WBC 8.7 3.8 - 9.8 K/cumm HISTORICAL RESULTS RBC 3.77(L) 3.90 - 5.00 M/cumm HISTORICAL RESULTS Hgb 10.3(L) 12.1 - 15.1 g/dl HISTORICAL RESULTS Hct 33.1(L) 36.1 - 44.3 % HISTORICAL RESULTS MCV 87.6 80.0 - 97.6 fl HISTORICAL RESULTS MCH 27.2 26.7 - 33.7 pg HISTORICAL RESULTS MCHC 31.0(L) 32.7 - 35.5 g/dl HISTORICAL RESULTS Rdw 14.3 11.8 - 14.6 % HISTORICAL RESULTS Platelets 227 140 - 440 K/cumm HISTORICAL RESULTS MPV 7.9 6.8 - 10.4 fl HISTORICAL RESULTS Neutrophils 48.6 38.7 - 74.5 % HISTORICAL RESULTS Lymphocytes 34.9 20.0 - 54.3 % HISTORICAL RESULTS Monos 7.8 4.3 - 13.5 % HISTORICAL RESULTS Eosinophils 8.3(H) 0.0 - 6.0 % HISTORICAL RESULTS Basophils 0.4 0.0 - 3.0 % HISTORICAL RESULTS Neutrophils, abs 4.2 1.8 - 6.6 K/cumm HISTORICAL RESULTS Lymphocytes, abs 3.0 1.2 - 3.3 K/cumm HISTORICAL RESULTS Monocytes, absolute 0.7 0.2 - 1.2 K/cumm HISTORICAL RESULTS Eosinophils, abs 0.7(H) 0.0 - 0.5 K/cumm HISTORICAL RESULTS Basophils, abs 0.0 0.0 - 0.2 K/cumm HISTORICAL RESULTS Blood specimen (specimen) 11/25/2014 12:31 AM CDT Lester Vegas MD PhD LAB BLOOD ORDERABLES Fin al Result Performing Organization Address [facility] de Phone Number HISTORICAL RESULTS * Blood glucose, POC (11/24/2014 4:59 PM CDT) Glucose, POC, bld 104 70 - 199 mg/dl HISTORICAL RESULTS Blood specimen (specimen) 11/24/2014 4:59 PM CDT Result [facility] Gil Pruitt MD PhD LAB BLOOD ORDERABLE S Final Result Performing Organization Address [facility] [place]/[facility] de Phone Number HISTORICAL RESULTS * Blood glucose, POC (11/24/2014 11:56 AM CDT) Glucose, POC, bld 85 70 - 199 mg/dl HISTORICAL RESULTS Blood specimen (specimen) 11/24/2014 11:56 AM CDT Result [facility] Gil Pruitt MD PhD LAB BLOOD ORDERABLE S Final Result Performing Organization Address [facility] [place]/[facility] de Phone Number HISTORICAL RESULTS * Blood glucose, POC (11/24/2014 7:26 AM CDT) Glucose, POC, bld 75 70 - 199 mg/dl HISTORICAL RESULTS Blood specimen (specimen) 11/24/2014 7:26 AM CDT Result [facility] Gil Pruitt MD PhD LAB BLOOD ORDERABLE S Final Result Performing Organization Address [facility] de Phone Number HISTORICAL RESULTS * Blood glucose, POC (11/24/2014 2:51 AM CDT) Pathologist [facility] Glucose, POC, bld 127 70 - 199 mg/dl HISTORICAL RESULTS Blood specimen (specimen) 11/24/2014 2:51 AM CDT Gil Pruitt MD PhD LAB BLOOD ORDERABLE S Final Result Performing Organization Address [facility] de Phone Number HISTORICAL RESULTS * Aerobic culture and Gram stain (11/23/2014 10:03 PM CDT) Drainage (Chest catheter) 11/23/2014 10:03 PM CDT 11/23/2014 10:34 PM CDT Impressions HISTORICAL RESULTS - 11/27/2014 11:35 AM CDT Specimens submitted from normally sterile [...] revised on 2013. Narrative HISTORICAL RESULTS - 11/27/2014 11:35 AM CDT No polymorphonuclear leukocytes seen. No organisms seen. Few Mixed skin microorganisms. Historical Provider LAB MICROBIOLOGY - GENERA L ORDERABLES Final Result Performing Organization Address [facility] de Phone Number HISTORICAL RESULTS * Aerobic culture and Gram stain (11/23/2014 10:03 PM CDT) Drainage (Chest catheter) 11/23/2014 10:03 PM CDT 11/23/2014 10:34 PM CDT Impressions HISTORICAL RESULTS - 11/27/2014 11:35 AM CDT Specimens submitted from normally sterile [...] revised on 2013. Narrative HISTORICAL RESULTS - 11/27/2014 11:35 AM CDT No polymorphonuclear leukocytes seen. No organisms seen. Few Mixed skin microorganisms. us Historical Provider LAB MICROBIOLOGY - GENERA L ORDERABLES Final Result HISTORICAL RESULTS * CHEST RADIOGRAPHY, FRONTAL (AP), LATERAL (11/23/2014 9:05 PM CDT) Anatomical Region Laterality Modality N/A Radiographic Lizeth ging 11/23/2014 9:05 PM CDT Narrative 11/24/2014 6:00 PM CDT MARLENY SOW M.D. NAYELI WHEELER M.D. FINAL REPORT The radiology attending physician has personally reviewed this study, and has reviewed and/or edited this written report and agrees with it. ACC# ??Date Time ??Exam [id number] Nov 23, 2014 21:05:00 [id number] Chest 2 views Frontl & Lat EXAMINATION: ?? Chest 2 views IMPRESSION: ?Comparison to 11/21/2014. Right upper extremity peripherally inserted central catheter is unchanged. Percutaneous pig tail catheter bilateral pigtail breast drains are unchanged. Lungs are clear. No pneumonia or pulmonary edema. No pleural effusion or pneumothorax. Cardia mediastinal silhouette is within normal limits. Requested By: Dictated By: ?? NAYELI WHEELER M.D. ??on Nov ??2 2014 11:10P This document has been electronically signed by: MARLENY SOW M.D. on Nov ??3 2014 ??5:59P [id number] Procedure Note Provider, [place], - 08/12/2016 MARLENY SOW M.D. NAYELI WHEELER M.D. FINAL REPORT The radiology attending physician has personally reviewed this study, and has reviewed and/or edited this written report and agrees with it. ACC# Date Time Exam [id number] Nov 23, 2014 21:05:00 [id number] Chest 2 views Frontl & Lat EXAMINATION: Chest 2 views IMPRESSION: Comparison to 11/21/2014. Right upper extremity peripherally inserted central catheter is unchanged. Percutaneous pig tail catheter bilateral pigtail breast drains are unchanged. Lungs are clear. No pneumonia or pulmonary edema. No pleural effusion or pneumothorax. Cardia mediastinal silhouette is within normal limits. Requested By: Dictated By: NAYELI WHEELER M.D. on Nov 23 2014 11:10P This document has been electronically signed by: MARLENY SOW M.D. on Nov 24 2014 5:59P [id number] us Historical Provider MD GARCIA XR PROCEDURES Final R esult * Serum troponin I (11/23/2014 8:13 PM CDT) Troponin I <0.03 0.00 - 0.03 ng/ml HISTORICAL RESULTS Comment: Interpretive Data Serial determinations are recommended for the diagnosis of myocardial infarction (Third [place] Definition of Myocardial Infarction. ??J Am Wang Cardiol 2012;60:1581-98). Current interpretive data was last revised on 13. Serum 11/23/2014 8:13 PM CDT us Gallo El MD LAB BLOOD ORDERABLES Fin al Result Performing Organization Address City/[facility] de Phone Number HISTORICAL RESULTS * (ABNORMAL) Plasma hepatic function panel (11/23/2014 8:13 PM CDT) Protein, pl 8.4 6.5 - 8.5 g/dl HISTORICAL RESULTS Alb 3.9 3.6 - 5.0 g/dl HISTORICAL RESULTS Bilirubin 0.2(L) 0.3 - 1.1 mg/dl HISTORICAL RESULTS Bilirubin, direct 0.1 0.0 - 0.3 mg/dl HISTORICAL RESULTS Alk phos 77 38 - 126 Units/L HISTORICAL RESULTS AST 23 11 - 47 Units/L HISTORICAL RESULTS ALT 24 7 - 53 Units/L HISTORICAL RESULTS Plasma 11/23/2014 8:13 PM CDT us Gallo El MD LAB BLOOD ORDERABLES Fin al Result Performing Organization Address City/[facility] Co de Phone Number HISTORICAL RESULTS * (ABNORMAL) Plasma basic metabolic panel (11/23/2014 8:13 PM CDT) Sodium 134(L) 135 - 145 mmol/L HISTORICAL RESULTS K, pl 4.6 3.3 - 4.9 mmol/L HISTORICAL RESULTS Chloride 102 97 - 110 mmol/L HISTORICAL RESULTS CO2 20(L) 22 - 32 mmol/L HISTORICAL RESULTS A. gap 12 0 - 16 mmol/L HISTORICAL RESULTS Glucose 101 70 - 199 mg/dl HISTORICAL RESULTS BUN 28(H) 8 - 25 mg/dl HISTORICAL RESULTS Creatinine 0.81 0.60 - 1.10 mg/dl HISTORICAL RESULTS Calcium 9.8 8.6 - 10.3 mg/dl HISTORICAL RESULTS Plasma 11/23/2014 8:13 PM CDT Gallo El MD LAB BLOOD ORDERABLES Fin al Result Performing Organization Address [facility] de Phone Number HISTORICAL RESULTS * Plasma phosphorus (11/23/2014 8:13 PM CDT) Pathologist [facility] Phosphorus, pl 4.0 2.3 - 4.3 mg/dl HISTORICAL RESULTS Plasma 11/23/2014 8:13 PM CDT Gallo El MD LAB BLOOD ORDERABLES Fin al Result Performing Organization Address [facility] [place]/[facility] de Phone Number HISTORICAL RESULTS * Serum magnesium (11/23/2014 8:13 PM CDT) Pathologist [facility] Magnesium 1.8 1.4 - 2.5 mg/dl HISTORICAL RESULTS Serum 11/23/2014 8:13 PM CDT Gallo El MD LAB BLOOD ORDERABLES Fin al Result Performing Organization Address [facility] [place]/[facility] de Phone Number HISTORICAL RESULTS * (ABNORMAL) Blood cell count (CBC) (11/23/2014 8:13 PM CDT) WBC 12.9(H) 3.8 - 9.8 K/cumm HISTORICAL RESULTS RBC 4.14 3.90 - 5.00 M/cumm HISTORICAL RESULTS Hgb 11.6(L) 12.1 - 15.1 g/dl HISTORICAL RESULTS Hct 35.6(L) 36.1 - 44.3 % HISTORICAL RESULTS MCV 86.1 80.0 - 97.6 fl HISTORICAL RESULTS MCH 28.0 26.7 - 33.7 pg HISTORICAL RESULTS MCHC 32.5(L) 32.7 - 35.5 g/dl HISTORICAL RESULTS Rdw 14.1 11.8 - 14.6 % HISTORICAL RESULTS Platelets 275 140 - 440 K/cumm HISTORICAL RESULTS MPV 7.9 6.8 - 10.4 fl HISTORICAL RESULTS Neutrophils 52.3 38.7 - 74.5 % HISTORICAL RESULTS Lymphocytes 33.1 20.0 - 54.3 % HISTORICAL RESULTS Monos 8.5 4.3 - 13.5 % HISTORICAL RESULTS Eosinophils 5.6 0.0 - 6.0 % HISTORICAL RESULTS Basophils 0.5 0.0 - 3.0 % HISTORICAL RESULTS Neutrophils, abs 6.7(H) 1.8 - 6.6 K/cumm HISTORICAL RESULTS Lymphocytes, abs 4.3(H) 1.2 - 3.3 K/cumm HISTORICAL RESULTS Monocytes, absolute 1.1 0.2 - 1.2 K/cumm HISTORICAL RESULTS Eosinophils, abs 0.7(H) 0.0 - 0.5 K/cumm HISTORICAL RESULTS Basophils, abs 0.1 0.0 - 0.2 K/cumm HISTORICAL RESULTS Blood specimen (specimen) 11/23/2014 8:13 PM CDT Gallo El MD LAB BLOOD ORDERABLES Fin al Result Performing Organization Address City/State/[facility] Co de Phone Number HISTORICAL RESULTS * Blood lactic acid (11/23/2014 8:13 PM CDT) Lactic acid 0.8 0.7 - 2.1 mmol/L HISTORICAL RESULTS Blood specimen (specimen) 11/23/2014 8:13 PM CDT Gallo El MD LAB BLOOD ORDERABLES Fin al Result HISTORICAL RESULTS * All Microbiology Report Section (11/23/2014 12:00 AM CDT) 11/23/2014 Narrative HISTORICAL RESULTS - 11/27/2014 1:01 PM CDT ? [facility] [place] [facility] ?[address] [facility] [address] ?[place], [place] [address] ? Patient Name: ??MOHSEN MARQUES ? Med Rec Number: [id number] ? Fin Number: ?[id number] ? Date: ?1955 ? Sex/Age: ? Female 59 years ? Admit Date: ?11/23/2014 ? Discharge Date: 11/26/2014 ? Doctor: ?Medicine , ? Facility: ?[facility] [place] [facility] ? Location: ?49ON 4906 01 ?* Abnormal ??A Alert ??f Footnote ??^ Corrected ??L Low ??H High ?i Interp Data ??@ Ref Lab ? Chart Type:Cumulative ?* * * * MICROBIOLOGY - WOUND and EXUDATES * * * * ?PROCEDURE: Aerobic Culture, Wound and Gram Stain ? SOURCE: Drainage ? COLLECTED: 11/23/14 ??2203 ?BODY SITE: Chest catheter ? STARTED: 11/23/14 ??2234 ? FREE TEXT SOURCE: ? DIRECT SPECIMEN EXAMINATION ? Stain ? REPORTED: 11/24/14 0204 ? No polymorphonuclear leukocytes seen. ? No organisms seen. ? FINAL REPORT ? REPORTED: 11/27/14 1135 ? Few Mixed skin microorganisms. ? ORDER COMMENTS ? (1)right ?* * * ??Interpretive Results ??* * [...] HISTORICAL RESULTS * All Microbiology Report Section (11/23/2014 12:00 AM CDT) 11/23/2014 Narrative HISTORICAL RESULTS - 11/27/2014 1:01 PM CDT ? [facility] ?[address] [facility] [address] ?[place], [place] [address] ? Patient Name: ??MHOSEN MARQUES ? Med Rec Number: [id number] ? Fin Number: ?[id number] ? Date: ?1955 ? Sex/Age: ? Female 59 years ? Admit Date: ?11/23/2014 ? Discharge Date: 11/26/2014 ? Doctor: ?Medicine , ? Facility: ?[facility] ? Location: ?[facility] 4906 01 ?* Abnormal ??A Alert ??f Footnote ??^ Corrected ??L Low ??H High ?i Interp Data ??@ Ref Lab ? Chart Type:Cumulative ?* * * * MICROBIOLOGY - WOUND and EXUDATES * * * * ?PROCEDURE: Aerobic Culture, Wound and Gram Stain ? SOURCE: Drainage ? COLLECTED: 11/23/ ??2203 ?BODY SITE: Chest catheter ? STARTED: 11/23/14 ??2234 ? FREE TEXT SOURCE: ? DIRECT SPECIMEN EXAMINATION ? Stain ? REPORTED: 11/24/14 0206 ? No polymorphonuclear leukocytes seen. ? No organisms seen. ? FINAL REPORT ? REPORTED: 11/27/14 1135 ? Few Mixed skin microorganisms. ? ORDER COMMENTS ? (1)left ?* * * ??Interpretive Results ??* * [...] in this encounter Visit Diagnoses Diagnosis Infection and inflammatory reaction due to other vascular device, implant, and graft Cellulitis and abscess of trunk Malignant neoplasm of breast (female) (HCC) Malignant neoplasm of breast (female), unspecified site Body mass index (BMI) of 45.0-49.9 in adult (HCC) Other postoperative infection Seroma complicating a procedure Other streptococcus infection in conditions classified elsewhere and of unspecified site Methicillin resistant Staphylococcus aureus infection Methicillin resistant Staphylococcus aureus in conditions classified elsewhere and of unspecified site Type 2 or unspecified type diabetes mellitus Essential hypertension Unspecified essential hypertension Restless legs syndrome Restless legs syndrome (RLS) Anxiety state Anxiety state, unspecified Insomnia Insomnia, unspecified Obesity Obesity, unspecified Acquired absence of breast and absent nipple Acquired absence of breast and nipple 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 Family history of malignant neoplasm of breast Family history of malignant neoplasm of gastrointestinal tract Family history of malignant neoplasm of prostate Personal history of tobacco use, presenting hazards to health Other specified procedure as the cause of abnormal reaction of patient or of later complication Removal of organ causing abnormal patient reaction, or later complication documented in this encounter Care Teams Hydraulic Elevator Constructor Relationship Specialty Start Date End Date Antoinette Zhu MD [address] [address] PCP - General 08/01/13 07/26/16 documented as of this encounter
--- OUTSIDE RECORDS SUMMARY | 2024-04-26 04:33 | XMS_ITS | Encounter Summary ---
Author Organization [facility] Facility Care Team Providers Care Android Software Engineer Name Role Phone Antoinette Zhu MD Primary Care Provider [phone] Encounter Details Date Type Department Care Team (Late st Contact Info) Description 08/28/2014 - 08/28/2014 11:59 PM CDT Hospital Encounter [facility] Antoinette Zhu MD [address] [address] Essential hypertension; Hypothyroidism; Malignant neoplasm of breast (female) (HCC) Social History Tobacco Use Types Packs/Day Years Used Date Smoking Tobacco: Former Alcohol Use Standard Drinks/Week Comments No 0 (1 standard drink = 0.6 oz pur e alcohol) Comments Unknown Sex and Gender Information Value Date Recorded Sex Assigned at Not on file 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 Gender Identity Not on file [...] Name Priority Date/Time Associated Diagnosis Comments SERUM TRIIODOTHYRONINE (T3), FREE Routine 08/28/2014 12:00 PM CDT SERUM THYROXINE (T4), FREE Routine 08/28 12:00 PM CDT SERUM THYROID-STIMULATING HORMONE (TSH) Routine 08/28/2014 12:00 PM CDT PLASMA BASIC METABOLIC PANEL Routine 08/28/2014 12:00 PM CDT BLOOD CELL COUNT (CBC) Routine 5 12:00 PM CDT ELECTROCARDIOGRAPHY (ECG) 08/28/2014 DISCHARGE LABORATORY CUMULATIVE REPORT Routine 08/28/2014 12:00 AM CDT documented in this encounter Results * (ABNORMAL) Blood cell count (CBC) (08/28/2014 12:00 PM CDT) WBC 10.2(H) 3.8 - 9.8 K/cumm HISTORICAL RESULTS RBC 4.74 3.90 - 5.00 M/cumm HISTORICAL RESULTS Hgb 13.4 12.1 - 15.1 g/dl HISTORICAL RESULTS Hct 42.5 36.1 - 44.3 % HISTORICAL RESULTS MCV 89.7 80.0 - 97.6 fl HISTORICAL RESULTS MCH 28.4 26.7 - 33.7 pg HISTORICAL RESULTS MCHC 31.6(L) 32.7 - 35.5 g/dl HISTORICAL RESULTS Rdw 13.9 11.8 - 14.6 % HISTORICAL RESULTS Platelets 313 140 - 440 K/cumm HISTORICAL RESULTS MPV 8.5 6.8 - 10.4 fl HISTORICAL RESULTS Neutrophils, abs 6.0 1.8 - 6.6 K/cumm HISTORICAL RESULTS Lymphocytes, abs 3.3 1.2 - 3.3 K/cumm HISTORICAL RESULTS Monocytes, absolute 0.7 0.2 - 1.2 K/cumm HISTORICAL RESULTS Eosinophils, abs 0.2 0.0 - 0.5 K/cumm HISTORICAL RESULTS Basophils, abs 0.0 0.0 - 0.2 K/cumm HISTORICAL RESULTS Neutrophils 58.3 38.7 - 74.5 % HISTORICAL RESULTS Lymphocytes 31.9 20.0 - 54.3 % HISTORICAL RESULTS Monos 7.1 4.3 - 13.5 % HISTORICAL RESULTS Eosinophils 2.4 0.0 - 6.0 % HISTORICAL RESULTS Basophils 0.3 0.0 - 3.0 % HISTORICAL RESULTS Blood specimen (specimen) 08/28/2014 12:00 PM CDT Antoinette Zhu MD LAB BLOOD ORDERABLES Deann l Result Performing Organization Address City/[facility] de Phone Number HISTORICAL RESULTS * (ABNORMAL) Serum thyroid-stimulating hormone (TSH) (08/28/2014 12:00 PM CDT) TSH 0.05(L) 0.35 - 5.50 mcIUnits/ ml HISTORICAL RESULTS Comment: Interpretive Data Hyperthyroid: ??<0.1 mcIUnit/mL Hypothyroid: ??>12.0 mcIUnit/mL Current interpretive data was last revised on 00. Serum 08/28/2014 12:0 0 PM CDT Antoinette Zhu MD LAB BLOOD ORDERABLES Deann l Result Performing Organization Address City/State/[facility] Co de Phone Number HISTORICAL RESULTS * (ABNORMAL) Plasma basic metabolic panel (08/28/2014 12:00 PM CDT) Sodium 136 135 - 145 mmol/L HISTORICAL RESULTS K, pl 4.5 3.3 - 4.9 mmol/L HISTORICAL RESULTS Chloride 99 97 - 110 mmol/L HISTORICAL RESULTS CO2 27 22 - 32 mmol/L HISTORICAL RESULTS A. gap 10 0 - 16 mmol/L HISTORICAL RESULTS Glucose 103 70 - 199 mg/dl HISTORICAL RESULTS BUN 14 8 - 25 mg/dl HISTORICAL RESULTS Creatinine 0.57(L) 0.60 - 1.10 mg/dl HISTORICAL RESULTS Calcium 9.8 8.6 - 10.3 mg/dl HISTORICAL RESULTS Plasma 08/28/2014 12:0 0 PM CDT Antoinette Zhu MD LAB BLOOD ORDERABLES Deann l Result Performing Organization Address [facility] de Phone Number HISTORICAL RESULTS * Serum triiodothyronine (T3), free (08/28/2014 12:00 PM CDT) Free T3 4.00 2.30 - 4.20 pg/ml HISTORICAL RESULTS Serum 08/28/2014 12:0 0 PM CDT Antoinette Zhu MD LAB BLOOD ORDERABLES Deann l Result Performing Organization Address [facility] de Phone Number HISTORICAL RESULTS * Serum thyroxine (T4), free (08/28/2014 12:00 PM CDT) Free T4 1.05 0.90 - 1.80 ng/dl HISTORICAL RESULTS Serum 08/28/2014 12:0 0 PM CDT Antoinette Zhu MD LAB BLOOD ORDERABLES Deann l Result Performing Organization Address [facility] de Phone Number HISTORICAL RESULTS * Discharge Laboratory Cumulative Report (08/28/2014 12:00 AM CDT) 08/28/2014 Narrative HISTORICAL RESULTS - 08/28/2014 3:29 PM CDT ?[facility] ?Department of Laboratories ? [address] [facility] [address] ? [place] [address] Patient Name: ??MOHSEN MARQUES Med Rec Number: [id number] Fin Number: ?[id number] Date: ?1955 Sex/Age: ? Female 59 years Admit Date: ?08/28/2014 Discharge Date: 08/28/2014 Doctor: ?Antoinette Zhu Facility: ?[facility] Location: ?[facility] Chart Printed: 08/28/2014 15:29 ?? * Abnormal ?? C Critical ?? f Footnote ?? ^ Corrected ?? L Low ?? H High ? i Interp Data ?? @ Reference Lab ? Chart Type:Periodic ? SELECTED ELECTROLYTES ?Test: Sodium ? Plasma Potassium ??Chloride ? Reference: [135-145] ??[3.3-4.9] ? [97-110] ? Units: mmol/L ? mmol/L ?mmol/L 08/28/2014 ?? 12:00:00 ?? 136 ?4.5 ? 99 ?Test: Total CO2 ??Anion Gap ? Reference: [22-32] ?[0-16] ? Units: mmol/L ? mmol/L 08/28/2014 ?? 12:00:00 ?? 27 ? 10 ? STANDARD BLOOD CHEMISTRY ?Test: BUN ? Creatinine ?? Glucose ?? Total Calcium ? Reference: [8-25] ??[0.60-1.10] ??[70-199] ??[8.6-10.3] ? Units: mg/dL ?? mg/dL ?mg/dL ? mg/dL 08/28/2014 ?? 12:00:00 ?? 14 ?0.57 ??L ?103 ? 9.8 ?BLOOD HORMONES ?Test: TSH i ?Free T4 (Free Thyroxine) ? Reference: [0.35-5.50] ??[0.90-1.80] ? Units: mcIUnit/mL ?? ng/dL 08/28/2014 ?? 12:00:00 ?? 0.05 ??L ?1.05 ?BLOOD HORMONES 08/28/2014 12:00:00 TSH: Interpretive Data Hyperthyroid: ??<0.1 mcIUnit/mL Hypothyroid: ??>12.0 mcIUnit/mL Current interpretive data was last revised on 00. ?Test: Free T3 ? Reference: [2.3-4.2] ? Units: pg/mL 08/28/2014 ?? 12:00:00 ?? 4.0 ? COMPLETE BLOOD COUNT ?Test: WBC ?RBC ?Hgb ? Reference: [3.8-9.8] ??[3.90-5.00] ??[12.1-15.1] ? Units: K/cumm ? M/cumm ? g/dL 08/28/2014 ?? 12:00:00 ?? 10.2 ??H ?4.74 ? 13.4 ?Test: Hct ?Platelet Ct ??MCV ? Reference: [36.1-44.3] ??[140-440] ?[80.0-97.6] ? Units: % ?K/cumm ? fL 08/28/2014 ?? 12:00:00 ?? 42.5 ? 313 ?89.7 ?Test: MCH ?MCHC ? RDW ? Reference: [26.7-33.7] ??[32.7-35.5] ??[11.8-14.6] ? Units: pg ? g/dL ? % 08/28/2014 ?? 12:00:00 ?? 28.4 ? 31.6 ??L ?13.9 ?Test: MPV ? Reference: [6.8-10.4] ? Units: fL 08/28/2014 ?? 12:00:00 ?? 8.5 ? AUTOMATED WHITE CELL DIFFERENTIAL ?Test: Neut Pct Auto ??Lymph Pct Auto ??Bullock Pct Auto ? Reference: [38.7-74.5] ?[20.0-54.3] ? [4.3-13.5] ? Units: % ?% ? % 08/28/2014 ?? 12:00:00 ?? 58.3 ? 31.9 ?7.1 ?Test: Eos Pct Auto ??Baso Pct Auto ??Neut Abs Auto ? Reference: [0.0-6.0] ? [0.0-3.0] ?[1.8-6.6] ? Units: % ? % ?K/cumm 08/28/2014 ?? 12:00:00 ?? 2.4 ? 0.3 ?6.0 ? AUTOMATED WHITE CELL DIFFERENTIAL ?Test: Lymph Abs Auto ??Bullock Abs Auto ??Eos Abs Auto ? Reference: [1.2-3.3] ? [0.2-1.2] ?[0.0-0.5] ? Units: K/cumm ?K/cumm ? K/cumm 08/28/2014 ?? 12:00:00 ?? 3.3 ? 0.7 ?0.2 ?Test: Baso Abs Auto ? Reference: [0.0-0.2] ? Units: K/cumm 08/28/2014 ?? 12:00:00 ?? 0.0 ? CANCELLED TESTS Date ?Time ?Test ?Cancel Reason 08/28/2014 ??11:10:00 ??Basic Met Plas 08/28/2014 ??11:10:00 ??CBC 08/28/2014 ??11:32:00 ??TSH 08/28/2014 ??11:32:00 ??T4 Free 08/28/2014 ??11:32:00 ??T3 Free 08/28/2014 ??11:47:00 ??Basic Met Plas Historical Provider LAB BLOOD ORDERABLES Deann l Result HISTORICAL RESULTS * ELECTROCARDIOGRAPHY (ECG) (08/28/2014) Narrative 08/28/2014 Ordered by an unspecified provider. Historical Provider ECG ORDERABLES Final Res ult documented in this encounter Visit Diagnoses Diagnosis Essential hypertension Unspecified essential hypertension Hypothyroidism Unspecified hypothyroidism Malignant neoplasm of breast (female) (HCC) Malignant neoplasm of breast (female), unspecified site documented in this encounter Care Teams Android Software Engineer Relationship Specialty Start Date End Date Antoinette Zhu MD [address] [address] PCP - General 08/01/13 07/26/16 documented as of this encounter
--- OUTSIDE RECORDS SUMMARY | 2024-04-26 04:34 | XMS_ITS | Encounter Summary ---
Author Organization [facility] Healthcare Address [address] [place] [address] Care Team Providers Care Boat Puller Name Role Phone Ángela Zhu MD Primary Care Provider [phone] Encounter Details Date Type Department Care Team (Late st Contact Info) Description 09/06/2012 6:13 PM CDT - 09/06/2012 7:46 PM CDT Hospital Encounter [facility] Other chest pain; Dysthymic disorder; Essential hypertension; Restless legs syndrome; Hereditary and idiopathic peripheral neuropathy Social History Tobacco Use Types Packs/Day Years Used Date Smoking Tobacco: Never Assessed Comments Unknown Sex and Gender Information Value Date Recorded Sex Assigned at Not on file 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 05/11/2012 09/12/2021 rOPINIRole (REQUIP) 5 mg tablet take 1 tablet (5MG) by oral route every day at bedtime 0 05/11/2012 12/12/2017 documented as of this encounter Plan of Treatment Not on file documented as of this encounter Procedures Procedure Name Priority Date/Time Associated Diagnosis Comments XR CHEST PORTABLE Routine 09/06/2012 6:5 6 PM CDT SERUM THYROID-STIMULATING HORMONE (TSH) Routine 09/06/2012 6:40 PM CDT SERUM MAGNESIUM Routine 09/06/2012 6:40 PM CDT SERUM CREATINE KINASE (CK) MB CONFIRMATION Routine 09/06/2012 6:40 PM CDT SERUM COMPREHENSIVE METABOLIC PANEL Routine 09/06/2012 6:40 PM CDT PLASMA PROTHROMBIN TIME (PT) Routine 09/06/2012 6:40 PM CDT PLASMA PARTIAL THROMBOPLASTIN TIME (PTT) Routine 09/06/2012 6:40 PM CDT BLOOD WBC CELL MORPHOLOGIC EXAM, AUTO Routine 09/06/2012 6:40 PM CDT BLOOD CELL COUNT (CBC) Routine 3 6:40 PM CDT SERUM TROPONIN I Routine 09/06/2012 1:40 PM CDT BLOOD D-DIMER Routine 09/06/2012 1:40 PM CDT BLOOD B-TYPE NATRIURETIC PEPTIDE (BNP) Routine 09/06/2012 1:40 PM CDT ELECTROCARDIOGRAPHY (ECG) 09/06/2012 DISCHARGE LABORATORY CUMULATIVE REPORT Routine 09/06/2012 12:00 AM CDT documented in this encounter Results * XR CHEST PORTABLE (09/06/2012 6:56 PM CDT) Anatomical Region Laterality Modality Body N/A Radiographic Lizeth ging 09/06/2012 6:56 PM CDT Narrative 09/10/2012 8:23 AM CDT XR Chest Portable ? [id number] ??Acc#: ??[id number] DATE OF EXAM: ??Sep 06 2012 CLINICAL HISTORY: 1849 hours. Chest tightness, anxiety. RESULT: One view of the chest demonstrates clear lungs bilaterally with no focal infiltrates. ??The lung bases are obscured by massive obesity. ??The heart size appears normal. IMPRESSION: 1. ??DEGRADED IMAGE QUALITY DUE TO MASSIVE OBESITY. 2. ??NO FOCAL CONSOLIDATION IS NOTED. Interpreting Physician: ??DR ANDREW YANEZ M.D. ??Read on: ??Sep 07 2012 6:26A Transcribed by: ??[facility] ??On: Sep 07 2012 ??9:54A Approved Electronically by: ??BEAU Varela, DR MORALES ??on: ??Sep 10 2012 8:23A Ordering BIANCA BARBER Attending BIANCA ZHU Procedure Note Provider, Tyler, - 08/12/2016 XR Chest Portable [id number] Acc#: [id number] DATE OF EXAM: Sep 06 2012 CLINICAL HISTORY: 1849 hours. Chest tightness, anxiety. RESULT: One view of the chest demonstrates clear lungs bilaterally with no focalinfiltrates. The lung bases are obscured by massive obesity. The heartsize appears normal. IMPRESSION: 1. DEGRADED IMAGE QUALITY DUE TO MASSIVE OBESITY. 2. NO FOCAL CONSOLIDATION IS NOTED. Interpreting Physician: DR ANDREW YANEZ M.D. Read on: Sep 07 20126:26A Transcribed by: edu On: Sep 07 2012 9:54A Approved Electronically by: DR ANDREW YANEZ M.D. on: Sep 10 20128:23A Ordering BIANCA BARBER Attending : ÁNGELA ZHU us Historical Provider MD GARCIA XR PROCEDURES Final R esult * Plasma partial thromboplastin time (PTT) (09/06/2012 6:40 PM CDT) Pathologist [facility] [place] APTT 26.9 -<34. seconds HISTOR ICAL RESULTS Plasma 09/06/2012 6:40 PM CDT [employer] [facility] LAB BLOOD ORDERABLES Final Resul t Performing Organization Address [facility] de Phone Number HISTORICAL RESULTS * Plasma prothrombin time (PT) (09/06/2012 6:40 PM CDT) Pathologist [facility] [place] Prothrombin time (PT) 13.3 11.4 - 14.0 seconds HISTORICAL RESULTS INR 1.06 HISTORICAL RESULTS Comment: RECOMMENDED RANGES FOR PROTIME INR: NOTE: THE INR HAS BEEN VALIDATED ONLY FOR PATIENTS ON STABLE ORAL ?ANTICOAGULANT THERAPY. ?2.0 - 3.0 ??PROPHYLAXIS OF VENOUS THROMBOSIS (HIGH RISK SURGERY) ?2.0 - 3.0 ??TREATMENT OF VENOUS THROMBOSIS ?2.0 - 3.0 ??TREATMENT OF PULMONARY EMBOLISM ?2.0 - 3.0 ??PREVENTION OF SYSTEMIC EMBOLISM ? TISSUE HEART VALVES ? AMI (TO PREVENT SYSTEMIC EMBOLISM)* ? VALVULAR HEART DISEASE ? ATRIAL FIBRILLATION ?2.5 - 3.5 ??MECHANICAL PROSTHETIC VALVES (HIGH RISK) ?2.0 - 3.0 ??BILEAFLET MECHANICAL VALVE IN AORTIC POSITION *If oral anticoagulant therapy is elected to prevent recurrent myocardial infarction, an INR of 2.5 to 3.5 is recommended, consistent with Food and Drug Administration recommendations. Plasma 09/06/2012 6:40 PM CDT [employer] [facility] LAB BLOOD ORDERABLES Final Resul t Performing Organization Address [facility] de Phone Number HISTORICAL RESULTS * Serum creatine kinase (CK) MB confirmation (09/06/2012 6:40 PM CDT) Pathologist [facility] [place] CK MB 1 0 - 5 ng/ml HISTORIC AL RESULTS Serum 09/06/2012 6:40 PM CDT [facility] [place] Barber LAB BLOOD ORDERABLES Final Resul t Performing Organization Address [facility] de Phone Number HISTORICAL RESULTS * (ABNORMAL) Serum thyroid-stimulating hormone (TSH) (09/06/2012 6:40 PM CDT) Pathologist [facility] [place] TSH <0.04(A) 0.35 - 4.80 mcIUnits/ml HISTORICAL RESULTS Serum 09/06/2012 6:40 PM CDT [facility] [place] [facility] LAB BLOOD ORDERABLES Final Resul t Performing Organization Address [facility] de Phone Number HISTORICAL RESULTS * Serum magnesium (09/06/2012 6:40 PM CDT) Pathologist [facility] [place] Magnesium 1.7 1.5 - 2.2 mg/dl HISTORICAL RESULTS Serum 09/06/2012 6:40 PM CDT [facility] [place] Barber LAB BLOOD ORDERABLES Final Resul t Performing Organization Address [facility] de Phone Number HISTORICAL RESULTS * (ABNORMAL) Blood cell count (CBC) (09/06/2012 6:40 PM CDT) Pathologist [facility] [place] WBC 9.2 4.0 - 10.5 K/cumm HISTORICAL RESULTS RBC 4.56 4.20 - 5.40 M/cumm HISTORICAL RESULTS Hgb 12.7 12.0 - 16.0 g/dl HISTORICAL RESULTS Hct 39.7 37.0 - 47.0 % HISTORICAL RESULTS MCV 87.1 77.0 - 97.0 fl HISTORICAL RESULTS MCH 27.9 23.0 - 34.0 pg HISTORICAL RESULTS MCHC 32.0 32.0 - 36.0 g/dl HISTORICAL RESULTS Rdw 14.6(H) 11.5 - 14.5 % HISTORICAL RESULTS Platelets 323 150 - 451 K/cumm HISTORICAL RESULTS MPV 9.4 7.4 - 10.4 fl HISTORICAL RESULTS Blood specimen (specimen) 09/06/2012 6:40 PM CDT [facility] [employer] LAB BLOOD ORDERABLES Final Resul t Performing Organization Address [facility] de Phone Number HISTORICAL RESULTS * (ABNORMAL) Blood WBC cell morphologic exam, auto (09/06/2012 6:40 PM CDT) Lymphocytes 31.3 25.0 - 33.0 % HISTORICAL RESULTS Monos 11.7 1.0 - 13.0 % HISTORICAL RESULTS Neutrophils 53.0(L) 54.0 - 69.0 % HISTORICAL RESULTS Eosinophils 3.6 0.0 - 10.0 % HISTORICAL RESULTS Basophils 0.2 0.0 - 1.0 % HISTORICAL RESULTS Immature granulocytes 0.2 0.0 - 1.0 % HISTORICAL RESULTS Lymphocytes, abs 2.9 1.2 - 3.4 K/cumm HISTORICAL RESULTS Monocytes, absolute 1.1 1.1 - 1.9 K/cumm HISTORICAL RESULTS Neutrophils, abs 4.9 1.4 - 6.5 K/cumm HISTORICAL RESULTS Eosinophils, abs 0.3 0.0 - 0.7 cells/cum m HISTORICAL RESULTS Basophils, abs 0.0 0.0 - 0.2 K/cumm HISTORICAL RESULTS Immature granulocyte, abs 0(H) 0 - 0 K/cumm HISTORICAL RESULTS Blood specimen (specimen) 09/06/2012 6:40 PM CDT [facility] LAB BLOOD ORDERABLES Final Resul t Performing Organization Address [facility] de Phone Number HISTORICAL RESULTS * (ABNORMAL) Serum comprehensive metabolic panel (09/06/2012 6:40 PM CDT) BUN 11.0 6.0 - 23.0 mg/dl HISTORICAL RESULTS Sodium 137 134 - 143 mmol/L HISTORICAL RESULTS Potassium, sr 3.8 3.4 - 5.0 mmol/L HISTORICAL RESULTS Chloride 103 99 - 108 mmol/L HISTORICAL RESULTS CO2 30 23 - 32 mmol/L HISTORICAL RESULTS Glucose, fasting 99 70 - 110 mg/dl HISTORICAL RESULTS Creatinine 0.91 0.60 - 1.30 mg/dl HISTORICAL RESULTS Comment: eGFR:68 ml/min/1.73sq.m if non -Spanish. eGFR: >70 ml/min/1.73sq.m if -Spanish. AVE GFR for 50-59 yr. age group: ??93 ml/min/1.73sq.m Calculated using MDRD Equation BUN/creat ratio 12 10 - 20 HIST ORICAL RESULTS A. gap 8 7 - 14 mmol/L HISTORICAL RESULTS Protein, sr 8.1(H) 6.4 - 8.0 g/dl HISTORICAL RESULTS Alb 3.2(L) 3.3 - 4.5 g/dl HISTORICAL RESULTS Alb/glob ratio 0.7(L) 1.1 - 1.8 HISTO RICAL RESULTS Calcium 8.9 8.6 - 9.8 mg/dl HISTORICAL RESULTS Bilirubin 0.5 0.0 - 1.1 mg/dl HISTORICAL RESULTS Alk phos 116 44 - 125 Units/L HISTORICAL RESULTS AST 17 4 - 32 Units/L HISTORICAL RESULTS ALT 35 16 - 66 Units/L HISTORICAL RESULTS Serum 09/06/2012 6:40 PM CDT [employer] LAB BLOOD ORDERABLES Final Resul t HISTORICAL RESULTS * Blood B-type natriuretic peptide (BNP) (09/06/2012 1:40 PM CDT) BNP 8 -<100 pg/ml HISTORIC AL RESULTS Blood specimen (specimen) 09/06/2012 1:40 PM CDT Narrative HISTORICAL RESULTS - 09/06/2012 2:44 PM CDT BNP REFERENCE RANGE <100 pg/ml [employer] LAB BLOOD ORDERABLES Final Resul t HISTORICAL RESULTS * Blood D-dimer (09/06/2012 1:40 PM CDT) D-dimer <0.22 0.00 - 0.50 mcg/ml HISTORICAL RESULTS Blood specimen (specimen) 09/06/2012 1:40 PM CDT Narrative HISTORICAL RESULTS - 09/06/2012 2:46 PM CDT Units of Measure = ug/ml FEU The D-Dimer result should not be used as the sole indicator to rule in or exclude a diagnosis of Pulmonary Embolism or Deep Vein Thrombosis. [employer] [facility] LAB BLOOD ORDERABLES Final Resul t Performing Organization Address City/State/[facility] Co de Phone Number HISTORICAL RESULTS * Serum troponin I (09/06/2012 1:40 PM CDT) Troponin I 0.05 0.00 - 0.10 ng/ml HISTORICAL RESULTS Serum 09/06/2012 1:40 PM CDT Narrative HISTORICAL RESULTS - 09/06/2012 2:31 PM CDT NEGATIVE: ??0.00 - 0.10 NG/ML INDETERMINATE: ??0.11 - 0.50 NG/ML POSITIVE: ??GREATER THAN 0.50 NG/ML [employer] [facility] LAB BLOOD ORDERABLES Final Resul t Performing Organization Address [facility] de Phone Number HISTORICAL RESULTS * Discharge Laboratory Cumulative Report (09/06/2012 12:00 AM CDT) 09/06/2012 Narrative HISTORICAL RESULTS - 09/07/2012 12:25 AM CDT Patient No: [id number] ? [facility] Patient Name: MOHSEN SALAZAR ? [facility] Healthcare Age: 57 YRS ?: 1955 ?Sex:F ?[address] )[phone] ?? Adm Dt: 09/06/2012 ?[place], [place] ??[id number] Created: 09/07/2012 ??0025 ?? Pt. Type: E ? Discharge Dt: 09/06/2012 ? Pathologists: Lisa Diaz MD Admit Attend Dr: JAYA BARBER MD ? BLOOD CELL COUNTS ?Collection Date: ?09/06/12 ?Collection Time: ?1840 ? Ref Range: ?? Units: [4.00-10.50] /CMM ? WBC X 10^3 ?9.18 [4.20-5.40] ??/CMM ? RBC X 10^6 ?4.56 [12.0-16.0] ??G/DL ? HGB ? 12.7 [37.0-47.0] ??% ?HCT ? 39.7 [77.0-97.0] ??FL ? MCV ? 87.1 [23.0-34.0] ??PG ? MCH ? 27.9 [32.0-36.0] ??% ?MCHC ?32.0 [11.5-14.5] ??% ?RDW ? 14.6 H [150-451] ?? /CMM ? PLT X 10^3 ? 323 ?BLOOD CELL DIFFERENTIAL ?Collection Date: ?05/16/13 ?Collection Time: ?1840 ? Ref Range: ?? Units: [54.0-69.0] ??% ?NEUTROPHILS ? 53.0 L [25.0-33.0] ??% ?LYMPHOCYTES ? 31.3 [1.0-13.0] ??% ?MONOCYTES ? 11.7 [0.0-10.0] ??% ?EOSINOPHILS ?3.6 [0.0-1.0] ?? % ?BASOPHILS ?0.2 ? /CMM ? A LYMPHOCYTE ? 2.9 [0.0-1.0] ?? % ?IMM GRAN % ? 0.2 [0.00-0.02] ??/CMM ? A IMM GRAN ?0.20 H [1.1-1.9] ?? /CMM ? A MONOCYTE ? 1.1 [1.4-6.5] ?? /CMM ? A NEUTROPHIL ? 4.9 [0.0-0.7] ?? /CMM ? A EOSINOPHIL ? 0.3 [0.0-0.2] ?? /CMM ? A BASOPHIL ? 0.0 Footnotes and Symbols: L = Low, H = High ?? CONTINUED ?Page: ?? 1 Patient No: [id number] ? [facility] Patient Name: MOHSEN SALAZAR ? [facility] Age: 57 YRS ?: 1955 ?Sex:F ?[address] )[phone] ?? Adm Dt: 09/06/2012 ?[place]AL[place] Mcgee ??[id number] Created: 09/07/2012 ??0025 ?? Pt. Type: E ? Discharge Dt: 09/06/2012 ? Pathologists: Lisa Diaz MD Admit Attend Dr: JAYA BARBER MD ? GENERAL CHEMISTRY ?Collection Date: ?09/06/12 ?Collection Time: ?1840 ? Ref Range: ?? Units: [< ?100] ?? pg/ml ?BNP ?8 f [134-143] ?? MMOL/L ? SODIUM ? 137 [3.4-5.0] ?? MMOL/L ? POTASSIUM ?3.8 [99.0-108.0] MMOL/L ? CHLORIDE ? 103.0 [23.0-32.0] ??MMOL/L ? TOTAL CO2 ? 29.8 ?? [7-14] ?MMOL/L ? ANION GAP ?8 ??[70-110] ?? MG/DL ?GLUCOSE FASTING ? 99 [6.4-8.0] ?? G/DL ? TOTAL PROTEIN ?8.1 H [3.3-4.5] ?? G/DL ? ALBUMIN ?3.2 L [1.1-1.8] ?A/G RATIO ?0.7 L [8.6-9.8] ?? MG/DL ?CALCIUM ?8.9 [0.0-1.1] ?? MG/DL ?BILI TOTAL ? 0.5 ??[44-125] ?? U/L ?ALK PHOS ? 116 ?? [4-32] ?U/L ?AST(SGOT) ? 17 ??[16-66] ?U/L ?ALT(SGPT) ? 35 [6.0-23.0] ??MG/DL ?BUN ? 11.0 ??[10-20] ? B/C RATIO ? 12 [0.60-1.30] ??MG/DL ?CREATININE ?0.91 f ?09/06/12 1840 eGFR:68 ml/min/1.73sq.m if non -Spanish. eGFR: >70 ml/min/1.73sq.m if -Spanish. AVE GFR for 50-59 yr. age group: ??93 ml/min/1.73sq.m Calculated using MDRD Equation FOOTNOTE ADDED ON ?? 09/06/12 ?? AT 1918 BY 999 [1.5-2.2] ?? MG/DL ?MAGNESIUM ?1.7 Footnotes and Symbols: L = Low, H = High, f = Footnote BNP (02/01/08 -- Current) BNP REFERENCE RANGE <100 pg/ml ?? CONTINUED ?Page: ?? 2 Patient No: [id number] ? [facility] Patient Name: MOHSEN SALAZAR ? [facility] Healthcare Age: 57 YRS ?: 1955 ?Sex:F ?[address] )[phone] ?? Adm Dt: 09/06/2012 ?[place], [place] ??[id number] Created: 09/07/2012 ??0025 ?? Pt. Type: E ? Discharge Dt: 09/06/2012 ? Pathologists: Lisa Diaz MD Admit Attend Dr: JAYA BARBER MD ? CARDIAC CHEMISTRY ?Collection Date: ?05/16/13 ?Collection Time: ?1840 ? Ref Range: ?? Units: [0.00-0.10] ??NG/ML ?TROPONIN I ?0.05 f ?? [0-5] ? NG/ML ?CKMB ? 1 ?THYROID FUNCTION TESTS ?Collection Date: ?05/16/13 ?Collection Time: ?1840 ? Ref Range: ?? Units: [0.35-4.80] ??uIU/ML ? TSH ?<0.04 * Footnotes and Symbols: * = Abnormal, f = Footnote TROPONIN I (02/17/11 -- Current) NEGATIVE: ??0.00 - 0.10 NG/ML INDETERMINATE: ??0.11 - 0.50 NG/ML POSITIVE: ??GREATER THAN 0.50 NG/ML ?? CONTINUED ?Page: ?? 3 Patient No: [id number] ? [facility] Patient Name: MOHSEN SALAZAR ? [facility] Age: 57 YRS ?: 1955 ?Sex:F ?[address] )[id number] ?? Adm Dt: 09/06/2012 ?[place], [place] ??[id number] Created: 09/07/2012 ??0025 ?? Pt. Type: E ? Discharge Dt: 09/06/2012 ? Pathologists: Lisa Diaz MD Admit Attend Dr: JAYA BARBER MD ?COAGULATION ? Units: ?? PROTIME ?INR ?D-DIMER ?APTT PAT ? Low: ??[11.4-14.0] ? [0.00-0.50] ??[< ?? 34.8] ? Ref Range: ? SECS ? UG/ML ? SECS ? 09/06/12 1840 ?13.3 ? 1.06 f ? <0.22 f ?26.9 Footnotes and Symbols: f = Footnote INR (11/11/99 -- Current) RECOMMENDED RANGES FOR PROTIME INR: NOTE: THE INR HAS BEEN VALIDATED ONLY FOR PATIENTS ON STABLE ORAL ?ANTICOAGULANT THERAPY. ?2.0 - 3.0 ??PROPHYLAXIS OF VENOUS THROMBOSIS (HIGH RISK SURGERY) ?2.0 - 3.0 ??TREATMENT OF VENOUS THROMBOSIS ?2.0 - 3.0 ??TREATMENT OF PULMONARY EMBOLISM ?2.0 - 3.0 ??PREVENTION OF SYSTEMIC EMBOLISM ? TISSUE HEART VALVES ? AMI (TO PREVENT SYSTEMIC EMBOLISM)* ? VALVULAR HEART DISEASE ? ATRIAL FIBRILLATION ?2.5 - 3.5 ??MECHANICAL PROSTHETIC VALVES (HIGH RISK) ?2.0 - 3.0 ??BILEAFLET MECHANICAL VALVE IN AORTIC POSITION *If oral anticoagulant therapy is elected to prevent recurrent myocardial infarction, an INR of 2.5 to 3.5 is recommended, consistent with Food and Drug Administration recommendations. D-DIMER (05/06/10 -- Current) Units of Measure = ug/ml FEU The D-Dimer result should not be used as the sole indicator to rule in or exclude a diagnosis of Pulmonary Embolism or Deep Vein Thrombosis. ?? END OF CHART ? Page: ?? 4 us Historical Provider LAB BLOOD ORDERABLES Deann l Result HISTORICAL RESULTS * ELECTROCARDIOGRAPHY (ECG) (09/06/2012) Narrative 09/06/2012 Ordered by an unspecified provider. 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
--- OUTSIDE RECORDS SUMMARY | 2024-04-26 04:34 | XMS_ITS | Encounter Summary ---
Author Organization [facility] Facility Care Team Providers Care Advertising Strategist Name Role Phone Antoinette Zhu MD Primary Care Provider [phone] Encounter Details Date Type Department Care Team (Latest Contact Info) Description 03/12/2013 10:01 AM COOKING CASING AND DRYING SUPERVISOR - 03/12/2013 11:59 PM [facility] Hospital Encounter [facility] Sheba Gonzales MD [address] [facility] [address] [place] [address] Pain in soft tissues of limb; Restless legs syndrome Social History Tobacco Use Types Packs/Day Years Used Date Smoking Tobacco: Never Assessed Comments Unknown Sex and Gender Information Value Date Recorded Sex Assigned at Not on file Legal Sex Female 12:24 AM COOKING CASING AND DRYING SUPERVISOR Gender Identity Not on file Sexual [...] 03/12/2013 07/27/2017 documented as of this encounter Plan of Treatment Not on file documented as of this encounter Procedures Procedure Name Priority Date/Time Associated Diagnosis Comments SERUM 25-HYDROXYCHOLECALCIFER OL (VITAMIN D) Routine 03/12/2013 10:18 AM COOKING CASING AND DRYING SUPERVISOR PLASMA THYROID-STIMULATING HORMONE (TSH) Routine 03/12/2013 10:18 AM COOKING CASING AND DRYING SUPERVISOR PLASMA IRON PROFILE Routine 03/12/2013 1 0:18 AM COOKING CASING AND DRYING SUPERVISOR PLASMA CYANOCOBALAMIN (VITAMIN B12), FOLIC ACID Routine 03/12/2013 10:18 AM COOKING [employer]ING AND DRYING SUPERVISOR BLOOD HEMOGLOBIN A1C Routine 03/12/2013 10:18 AM COOKING [employer]ING AND DRYING SUPERVISOR DISCHARGE LABORATORY CUMULATIVE REPORT 03/12/2013 documented in this encounter Results * (ABNORMAL) Blood hemoglobin A1C (03/12/2013 10:18 AM COOKING [employer]ING [employer]YING SUPERVISOR) Glycated hemoglobin 6.2(H) 4.0 - 6.0 % HISTORICAL RESULTS Blood specimen (specimen) 03/12/2013 10:18 AM COOKING [employer]ING [employer] DRYING SUPERVISOR us Sheba Gonzales MD LAB BLOOD ORDERABLES Final Re sult HISTORICAL RESULTS * Serum 25-hydroxycholecalciferol (vitamin D) (03/12/2013 10:18 AM COOKING [employer]ING AND DRYING SUPERVISOR) 25-OH Vit D 39 30 - 100 ng/ml HISTORICAL RESULTS Serum 03/12/2013 10:1 8 AM COOKING [employer]ING [employer]YING SUPERVISOR Sheba Gonzales MD LAB BLOOD ORDERABLES Final Re sult Performing Organization Address City/[facility] Co de Phone Number HISTORICAL RESULTS * Plasma cyanocobalamin (vitamin B12), folic acid (03/12/2013 10:18 AM COOKING [employer]ING [employer]YING SUPERVISOR) Folic acid 9.3 5.9 - 99.0 mcg/L HISTORICAL RESULTS Comment:The World Health Org anization (WHO) Technical Consulation on folate has determined that folate concentrations less than 4 ng/mL are considered deficient. Cyanocobalamin (Vit B12) 345 180 - 999 pg/ml HISTORICAL RESULTS Plasma 03/12/2013 10:1 8 AM COOKING [employer]ING AND DRYING SUPERVISOR Sheba Gonzales MD LAB BLOOD ORDERABLES Final Re sult Performing Organization Address [facility] Co de Phone Number HISTORICAL RESULTS * (ABNORMAL) Plasma iron profile (03/12/2013 10:18 AM COOKING [employer]ING AND [employer]YING SUPERVISOR) Iron 45 28 - 170 mcg/dl HISTORICAL RESULTS TIBC 381 250 - 450 mcg/dl HISTORICAL RESULTS Transferrin 272 250 - 380 mg/dl HISTORICAL RESULTS Iron saturation 12(L) 20 - 55 % HIST ORICAL RESULTS Plasma 03/12/2013 10:1 8 AM COOKING [employer]ING [employer]YING SUPERVISOR Sheba Gonzales MD LAB BLOOD ORDERABLES Final Re sult Performing Organization Address City/[facility] Co de Phone Number HISTORICAL RESULTS * Plasma thyroid-stimulating hormone (TSH) (03/12/2013 10:18 AM COOKING [employer]ING AND [employer]YING SUPERVISOR) TSH 1.61 0.34 - 5.60 mcIUnits/m l HISTORICAL RESULTS Comment: TSH Interpretive Guide: [place]: ??TSH surges within the first 15 to 60 minutes of life reaching peak levels at about 30 minutes. ??Values then decline rapidly and after 1 week are within the Adult Normal Range . Adult: Hyperthyroid ?< ?? 0.1 ?mcIUnits/mL Euthyroid ?0.34 ??- ??5.60 ? mcIUnits/mL Hypothyroid ? > 12.0 ? mcIUnits/mL Plasma 03/12/2013 10:1 8 AM COOKING [employer]ING [employer]YING SUPERVISOR us Sheba Gonzales MD LAB BLOOD ORDERABLES Final Re sult HISTORICAL RESULTS * DISCHARGE LABORATORY CUMULATIVE REPORT (03/12/2013) Narrative 03/12/2013 Ordered by an unspecified provider. Historical Provider LAB BLOOD ORDERABLES Deann l Result documented in this encounter Visit Diagnoses Diagnosis Pain in soft tissues of limb Restless legs syndrome Restless legs syndrome (RLS) documented in this encounter Care Teams Advertising Strategist Relationship Specialty Start Date End Date Antoinette Zhu MD [address] [address] PCP - General 03/12/13 07/31/13 documented as of this encounter
--- OUTSIDE RECORDS SUMMARY | 2024-04-26 04:34 | XMS_ITS | Encounter Summary ---
Author Organization [facility] Healthcare Address [address] [place] [address] Care Team Providers Care Associate Trainer Name Role Phone Antoinette Zhu MD Primary Care Provider [phone] Encounter Details Date Type Department Care Team (Latest Contact Info) Description 07/08/2013 2:12 PM CDT - 07/12/2013 1:37 PM CDT [place] [id number] [id number] Other nonspecific abnormal cardiovascular system function study; Intermediate coronary syndrome (CMS/HCC) (HCC); Family history of other cardiovascular diseases Social History Tobacco Use Types Packs/Day Years Used Date Smoking Tobacco: Never Assessed Comments Unknown Sex and Gender Information Value Date Recorded Sex Assigned at Not on file Legal Sex Female 12:24 AM [employer] Gender Identity Not on file Sexual Orientation Not on file documented as of this encounter Last Filed Vital Signs Vital Sign Reading Time Taken Comments Blood Pressure 132/89 07/12/2013 11:22 AM CDT Pulse 72 07/12/2013 11:22 AM CDT Temperature - - Respiratory Rate - - Oxygen Saturation - - Inhaled Oxygen Concentration - - Weight 135.4 kg (298 lb 8.1 oz) 014 12:14 AM CDT Height 157.5 cm (5' 2.01 ) 07/09/2013 1 1:14 AM CDT Body Mass Index 54.58 07/09/2013 11:14 AM CDT documented in this encounter Discharge Summaries * Provider, MD Tyler - 07/12/2013 12:00 AM CDT DISCHARGE SUMMARY Patient: MOHSEN MARQUES Account: [id number] Room No: 724-02 : 1955 Patient Type: [facility] Attend.: Elo Lackey M.D. Admit Date: 07/08/2013 Dict.: Elo Lackey M.D. Disch. Date: 07/12/2013 Admitting Diagnoses: 1. Shortness of breath and chest tightness. 2. Hypertension. 3. Restless legs syndrome. 4. Obesity. 5. Sleep apnea. Discharge Diagnoses: 1. Shortness of breath and chest tightness with essentially negative cardiac catheterization in the past. No history of chest pain. 2. Obesity. 3. Sleep apnea. 4. Restless legs syndrome. 5. Hypertension. 6. Low thyroid-stimulating hormone, probably secondary to hyperthyroidism with a history of palpitations, started on treatment this admission. Discharge Medications: Continue home medications includin. Proair HFA 2 puffs 2 times a day. 2. Lisinopril 20 mg daily. 3. Xarelto 20 mg daily. 4. Ropinirole 1 mg 2 times a day. 5. Ropinirole 6 mg at bedtime. 6. Tramadol 5 mg 1 to 2 tablets every 6 hours p.r.n. New medications: 7. Methimazole 10 mg daily for 2 weeks, then 5 mg daily. 8. Metoprolol 12.5 mg every 12 hours. Consultants: 1. Zoey Jacobo MD, cardiology. 2. Eugenio Nails MD, endocrinology. Operations/Procedures/Laboratories: On July 08, 2013, UA showed moderate blood. Troponin I less than 0.03. PTT 35.1, PT 21.5, INR 1.83. D-dimer 0.2. Sodium 135, potassium 4.5, chloride 102, bicarbonate 26, BUN 10, creatinine 0.55, glucose 91, AST 16, ALT 17, alkaline phosphatase 80, calcium 9.9, bilirubin 0.71, plasma protein 8.1, albumin 3.6, globulin 4.5, anion gap 12, estimated GFR greater than 90. Hemoglobin 13.7, hematocrit 43.6, MCV 89.3, platelets 342,000, WBC 10.6. BNP 19. Troponin I less than 0.03. Influenza A and B antigen negative. On July 09, 2013, troponin I less than 0.03. TSH, July 10, 2013, 0.05. Troponin I less than 0.03. Free T4 0.89. Lipid panel showed cholesterol 162, triglycerides 124, HDL 40, LDL 97. Hemoglobin A1c 6.7. TSH 0.09, T3, 151. On July 12, 2013, hemoglobin 12.1, hematocrit 38.8, MCV 89.8, platelets 289,000, WBC 8.8. Sodium 137, potassium 4.2, chloride 106, bicarbonate 27, BUN 14, creatinine 0.70, glucose 131, calcium 8.8, anion gap 8, estimated GFR 86. On July 08, 2013, EKG showed sinus rhythm, ventricular rate of 79. Nuclear stress test, July 09, 2013, showed no EKG changes with Lexiscan injection. SPECT to follow. Myocardial scan, July 09, 2013, showed scintigraphic findings suggestive of stress-induced ischemia of the [id number] anterior wall, left ventricular ejection fraction of 60 percent. Lower extremity venous Dopplers, July 09, 2013, were normal. EKG, July 09, 2013, showed sinus rhythm, ventricular rate of 88. Pulmonary function study, July 10, 2013, showed mild reduction in flow rates possibly secondary to morbid obesity with mild reduction in vital capacity, severe reduction in expiratory residual volume, clinical correlation recommended. It should be noted that the patient had used bronchodilator prior to the study. She remains with moderate impairment in air flow. A 2D echocardiogram, July 10, 2013, showed normal left ventricular size, normal left ventricular wall thickness, left ventricular systolic function at the lower limit of normal. Ejection fraction measured at 51 percent. Segments of LV are hypokinetic, anteroseptal segment. Normal Doppler with normal valvular structure and function. Cardiac catheterization, July 11, 2013, showed normal coronary arteries, hyperdynamic left ventricular function, elevated left ventricular end-diastolic pressure, which is consistent with a degree of diastolic dysfunction, sustained atrial tachycardia at the completion of the procedure, rate 116, asymptomatic, resolved with Lopressor 5 mg IV push. On July 08, 2013m chest x-ray showed no active cardiac or pulmonary disease. The patient is quite obese. Chest CT, July 08, 2013, showed no infiltrates and no pulmonary arterial thromboembolic disease. Thyroid ultrasound, July 11, 2013, showed overall mild thyromegaly and nodules present, compatible with goiter. Discharge Physical Examination: Vital Signs: Temperature 97.9, heart rate 70, respiratory rate 16, blood pressure 115/64, O2 saturations 96 percent. General: Obese, female, sitting up in bed, not in acute distress. No new complaints. Lungs: Symmetrical breath sounds bilaterally. Heart: S1, S2 heard. Regular rate and rhythm. Abdomen: Soft, obese, nontender. Bowel sounds positive. Extremities: No edema bilateral lower extremities. Right groin catheterization site. No evidence of active bleeding. Neurologic: Alert, awake, oriented to self and surroundings. She is able to move all extremities. Skin: No evidence of new rashes or lesions. Hospital Course: Review of Systems has already been dictated in the History of Present Illness and will not be repeated here. The patient is a pleasant 58-year-old female who was admitted with complaints of shortness of breath and chest tightness. The patient had negative troponins, underwent a stress test, which was positive; hence, cardiology consult was requested, and the patient underwent cardiac catheterization, which was essentially negative. The patient also had a pulmonary function study, which showed possible restrictive dysfunction. The patient has been advised weight loss. The patient's A1c was also found to be 6.7; hence, public health educator consult was requested during hospital stay, and the patient will be discharged with consistent-carbohydrate/ cardiac diet. The patient was also found to have microscopic hematuria and states that she occasionally has seen blood in her urine. We will recommend urology and [facility] followup as an outpatient. This is a sedimentation rate. The patient also seen by Endocrinology due to low TSH, underwent a thyroid ultrasound, which showed mild thyromegaly and nodules present, compatible with goiter. The patient will need further evaluation as an outpatient, was started on methimazole as per Endocrinology recommendations. Discharge Diet: Consistent-carbohydrate, cardiac, 1800-calorie diet. Activity: As tolerated. Followup Appointment: 1. Follow up with primary care physician, Dr. Antoinette Zhu, within 1 week. 2. Follow up with endocrinology, Dr. Nails, within 1 week. 3. Follow up with cardiology, Dr. Jacobo, within 1 week. 4. Follow up with urology, Dr. Dan, within 1 week. 5. Follow up with [facility], Dr. Tavares, within 1 week. Time Spent: More than 30 minutes was spent coordinating discharge and discussion with the patient. Discussed with Dr. Jacobo post catheterization. Elo Lackey M.D. SR/ct TD: 07/12/2013 15:07 CC: Avery Seymour M.D. Josiah O. Ekunno, M.D. Asim Razzaq, M.D. MD Dolores Cantrell Authenticated by Elo Lackey M.D. On 07/14/2013 09:15:11 PM documented in this encounter Medications at [...] mg by mouth. 05/11/2012 09/12/2021 rOPINIRole (REQUIP) 1 mg tablet take 1 [...] 03/12/2013 07/27/2017 documented as of this encounter H&P Notes * Provider, MD Tyler - 07/08/2013 12:00 AM CDT HISTORY AND PHYSICAL Patient: MOHSEN MARQUES Account: [id number] Room No: 724-02 : 1955 Patient Type: [facility] Attend.: Elo Lackey M.D. Admit Date: 07/08/2013 Dict.: Elo Lackey M.D. Disch. Date: CHIEF COMPLAINT: Shortness of breath. HISTORY OF PRESENT ILLNESS: Patient is a pleasant 58-year-old female with past medical history significant for hypertension, restless leg syndrome, recent pulmonary embolism about 2 months ago at [place], [place], sleep apnea on CPAP who states that she was admitted at [facility] 2 months ago with a pulmonary embolism, was initially started on Coumadin, but later was switched to Xarelto, which patient has been on. States that no definite cause for the pulmonary embolism was found. Patient did have right knee replacement about a year ago, but states that she took a while to recover, but was doing pretty well when she developed shortness of breath 2 months ago and was diagnosed with a pulmonary embolism. Patient states that she has gained about 20 lbs in less than a year, and over the last few days has been noticing increasing shortness of breath. States that she was at the grocery store about 2 days ago and at that time felt lightheaded, clammy, and felt as if she was going to pass out, and felt short of breath and had to sit down. Patient states she can barely walk to the telephone at home, which is about the distance from her hospital bed to the outside corridor wall, at which point she gets short of breath and is not able to talk. Patient states she has noticed occasional chest tightness over the last 2 days. No radiation to arm, jaw, or back, mainly mid chest area. Patient has also noticed that occasionally she feels as if her heart is racing. Patient usually uses 2 pillows to lie down at night, but currently has been using 3 pillows over the last few days. Patient states that she does faithfully use her CPAP machine as she feels she cannot sleep without that. Was diagnosed with sleep apnea about 10 years ago and has been using a CPAP since. Patient also states that she has a dry cough. She is not bringing up any expectoration. No complaints of headaches. Patient states that when she did feel as if she was going to pass out she noticed some white spots in front of her eyes, which happened about 3-4x, but currently is not experiencing these symptoms. Otherwise, no new visual changes or hearing changes. No complaints of difficulty swallowing. No history of abdominal pain, nausea, vomiting, diarrhea, constipation, hemoptysis, hematemesis, hematochezia, or melena. Patient has been told that she has microscopic hematuria and states that at times her urine looks tea-colored, but has not had any workup for the same. States that she occasionally notices blood when she is wiping but denies that this is from her rectal area. No complaints of lower extremity swelling. Patient is able to ambulate without a cane or a walker. No complaints of focal weakness, new skin rashes, or lesions. No complaints of neck or back pain. REVIEW OF SYSTEMS: As per history of present illness. PAST MEDICAL HISTORY: 1. Hypertension. 2. History of pulmonary embolism diagnosed 2 months ago at [facility], [place], [place], on Xarelto. 3. Sleep apnea, on CPAP. Patient does not know her exact settings. 4. Restless leg syndrome, for which patient is on disability. PAST SURGICAL HISTORY: 1. Right knee replacement about a year ago, in 2013, status post abdominal hernia repair. 2. Status post cholecystectomy. 3. Status post right oophorectomy. ALLERGIES: CEPHALOSPORINS WHICH CAUSES SHORTNESS OF BREATH. SOCIAL HISTORY: Patient states she smoked socially from the age of 19 to the age of 23, but quit and has not smoked since. No history of significant alcohol or illicit drug use. 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 Lives at home with her , has 3 children. FAMILY HISTORY: Patient states her 2 sisters were diagnosed with breast cancer. States that her mother was diagnosed with heart disease late 40s to early 50s, and in her 60s of heart disease. Patient states her older brother of heart disease in his 60s and her younger brother was diagnosed with heart disease and had stents placed, and is in his 50s. MEDICATIONS AT HOME: 1. Lisinopril 20 mg daily. 2. ProAir 2 puffs b.i.d. 3. Ropinirole 1 mg b.i.d. 4. Ropinirole 5 mg at bedtime, to be taken with 1 mg. 5. Tramadol 50 mg 1-2 tablets q.6h. p.r.n. pain. 6. Xarelto 20 mg daily. PHYSICAL EXAMINATION: Vital signs: Temperature 97.9, heart rate 89, respiratory rate 18, blood pressure 137/85, O2 sat is 99%. General: Obese female sitting up in her chair, currently not in acute distress. HEENT: Extraocular movements are intact. Head: Normocephalic, atraumatic. Neck: Supple. Lungs: Symmetrical breath sounds bilaterally. Heart: S1, S2 heard, regular rate and rhythm. Abdomen: Soft, nontender. Bowel sounds positive. Obese. Healed scar from previous surgery. Abdomen: Bowel sounds positive. Extremities: No edema, bilateral lower extremities. Healed scar, right knee, from previous surgery. Neuro: Alert, awake, oriented to self and surroundings, is able to move all extremities. Skin: Healed scars from previous surgeries. No new rashes or lesions. LABS: On 07/08/2013, UA showed moderate blood, trop I is less than 0.03, PTT 35.1, PT 21.5, INR 1.83, D-Dimer 0.2, sodium 135, potassium 4.5, chloride 102, bicarb 26, BUN 10, creatinine 0.55, glucose 91, AST 16, ALT 17, alkaline phosphatase 80, calcium 9.9, bilirubin 0.71, plasma protein 8.1, albumin 3.6, globulin 4.5, anion gap 12, estimated GFR greater than 90, hemoglobin 13.7, hematocrit 43.6, MCV 89.3, platelets 342,000, WBC 10.6, BNP 19, trop I less than 0.03, influenza A and B antigen negative. Subsequent trop I, 07/09/2013, less than 0.03. Sodium 136, potassium 3.9, chloride 192, bicarb 27, BUN 11, creatinine 0.87, glucose 122, AST 16, ALT 16, alkaline phosphatase 64, calcium 9, bilirubin 0.88, plasma protein 7, albumin 2.8, globulin 4.2, anion gap 11, hemoglobin 11.8, hematocrit 37.5, MCV 88.7, platelets 295,000, WBC 12.3. EKG, 07/08/2013, showed sinus rhythm, ventricular rate of 79. Nuclear stress test, 07/09/2013, showed no electrocardiographic changes with Lexiscan injection. Myocardial scan, 07/09/2013, showed scintigraphic findings suggestive of stress-induced ischemia of the mid to distal anterior wall, left ventricular ejection fraction of 60%. Lower extremity venous Dopplers, 07/09/2013, were normal. EKG, 07/09/2013, showed sinus rhythm, ventricular rate of 85. Chest x-ray, 07/08/2013, showed no active cardiac or pulmonary disease. Chest CT, 07/08/2013, showed no infiltrates, no pulmonary arterial thromboembolic disease. ASSESSMENT AND PLAN: 1. Shortness of breath. This could be multifactorial. Contribution from patient's obesity with likely obesity hypoventilation syndrome, underlying sleep apnea, evidence of stress-induced ischemia on myocardial scan. Troponins were negative. Patient is sinus rhythm on monitor. She is otherwise hemodynamically stable. No evidence of pulmonary infection. No evidence of pulmonary embolism or deep venous thrombosis. Will request Cardiology input. Will hold Xarelto for now, as patient may need a cardiac catheterization. Will also request pulmonary function testing. Will also request a lipid panel, as well as TSH. 2. Hypertension. Patient has been started on metoprolol in addition to lisinopril and blood pressures are currently stable. Will continue to monitor. 3. Sleep apnea. Continue CPAP at bedtime. 4. Restless leg syndrome. Continue ropinirole. 5. Obesity. Patient has been advised weight loss and she verbalizes understanding. 6. Possible impaired glucose tolerance with hemoglobin A1c of 6.2 in 02/2013. Will repeat a hemoglobin A1c. 7. History of recent pulmonary embolism, currently CT chest negative for pulmonary embolism and lower extremity Dopplers negative for deep venous thrombosis. Will hold Xarelto in case of cardiac intervention and will request records from [facility] at [place], [place]. 8. Microscopic hematuria. Patient will need followup with Urology and [facility] as an outpatient for further workup. 9. Blood count stable. 10. Deep venous thrombosis prophylaxis. Will start patient on subcu Lovenox. About 70 minutes were spent coordinating history and physical and discussion with patient. Elo Lackey M.D. /tr TD: 07/09/2013 19:44 CC: Antoinette Zhu M.D. Authenticated by Elo Lackey M.D. On 07/10/2013 09:20:57 PM documented in this encounter Consult Notes * Provider, MD Tyler - 07/11/2013 12:00 AM CDT CONSULTATION REPORT Patient: MOHSEN MARQUES Account: [id number] Room No: 724-02 : 1955 Patient Type: [facility] Attend.: Elo Lackey M.D. Admit Date: 07/08/2013 Consult.: Eugenio Nails M.D. Disch. Date: ENDOCRINOLOGY CONSULTATION DATE OF CONSULTATION: 07/11/2013 CONSULTING PHYSICIAN: Dr. Elo Lackey. REASON FOR CONSULTATION: Hyperthyroidism. HISTORY OF PRESENT ILLNESS: The patient is a 58-year-old female who comes admitted with some sort of chest discomfort and lightheadedness. She has been seen by the cardiology service and is going to have a cardiac catheterization today. I am consulted because the blood test done on the patient showed a low TSH to 0.05. I repeated another one and it is reported as 0.09. Total T3 and free T4 are within normal range. The patient said that a few weeks ago when she has been seen by her primary care doctor about the same symptoms that she was having now. Also she was told to have an overactive thyroid but they told her they will deal with that later. At that time the patient also had been diagnosed with pulmonary embolism and was started on anticoagulation. Patient complains of occasional palpitations. She said that she feels like a racing heart. It happens probably one or two times a week. It lasts from a few seconds to a few minutes. It happens at anytime on exertion or most at rest. She said that she has occasional tremors. She denies any diarrhea or changes in bowel movement. She has not lost weight and rather has gained over 40 pounds in the last year or so. She has not noticed any pain in the neck or the thyroid area and no changes to her eyesight or the way her eyes look. PAST MEDICAL HISTORY: The patient is positive again for an episode of PE about two months ago treated at [facility]. Also hypertension, sleep apnea on CPAP, restless leg syndrome. The patient is on disability due to this. FAMILY HISTORY: Non-contributory for any thyroid disease. SOCIAL HISTORY: She does not smoke, does not drink. 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 REVIEW OF SYSTEMS: Systemic: Over 40 to 45 pounds weight gain in the last year or so. HEENT: No sore throat. No eye changes. Cardiovascular: Occasional palpitations per history of present illness. Respiratory: No cough or wheezing. Gastrointestinal: No chronic diarrhea or constipation. : No dysuria or hematuria. Musculoskeletal: No muscle tenderness. No arthralgias. She has restless legs. Skin: No rash reported. PHYSICAL EXAMINATION: The patient looks fine, no acute distress. Her vital signs showing: Blood pressure of 133/76. Pulse is 70. Temperature is 97.2. Her weight is 135.4 kilos. Eye examination: Extraocular movements are normal. There is no exophthalmus, no jaundice. Oral mucosa is moist. Neck: No jugular venous distention. I do not palpate any thyromegaly, no neck adenopathy. Heart sounds are regular without murmurs. Abdomen is obese, soft. Lower extremity: DP, PT pulses 2+ and symmetrical. There is 1+ ankle edema. Deep tendon reflexes 2+ and symmetrical. There is no tremor. PROBATE CLERK: The patient is awake, alert, oriented times three. No motor or sensory abnormalities is noted. The skin is intact without any rash. LABORATORY: Labs report thyroid function test as per history of present illness. T3 and T4 are within normal range. Other results shows a biochemistry profile absolutely normal except for very mild low albumin to 2.8. She had a portable chest x-ray that showed no active cardiac or pulmonary disease. ASSESSMENT AND RECOMMENDATIONS: 58-year-old female comes with some lightheadedness, palpitations, being evaluated by the cardiology service, having a cardiac catheterization today. From endocrinology standpoint she has been noticed to have subclinical hyperthyroidism as indicated by the low TSH on two occasions with a normal free T4 and T3. Her TSH is at a range where treatment will be warranted. Unfortunately, she had a chest CT with IV contrast, so doing a radioactive iodine study would not be feasible at this time. I will go ahead and request a thyroid ultrasound to rule out a multinodular goiter or a single nodule which can present with hyperthyroidism. From the treatment standpoint, I explained the patient that some of her cardiac symptoms, especially the palpitations might be related to her hyperthyroidism. I will go ahead and start the patient on Tapazole 10 mg daily. My recommendation is to keep her on 10 mg of Tapazole daily for the next two weeks and probably lower it to 5 mg afterwards. I will see the patient upon discharge in a couple of weeks at my office. Thank you for consultation. Avery Agrawal/dior TD: 07/11/2013 10:33 Authenticated and Edited by Eugenio Nails MD On 07/15/13 9:54:11 PM * Provider, MD Tyler - 07/10/2013 12:00 AM CDT CONSULTATION REPORT Patient: MOHSEN MARQUES Account: [id number] Room No: 724-02 : 1955 Patient Type: SDS Attend.: Elo Lackey M.D. Admit Date: 07/08/2013 Consult.: Zoey Jacobo M.D. Disch. Date: CARDIOLOGY CONSULTATION PRIMARY CARE PHYSICIAN: Dr. Abiola Zhu in [place], [place] The patient is a very pleasant 58-year-old white female who I was asked to see at the request of Dr. Lackey for my advice and opinion regarding her abnormal stress test in consultation. The patient has no history of any heart disease. She does have hypertension and a recent PE two months ago treated at [facility] in [place]. She is on Xarelto. She started having trouble this time on Monday when she was at the grocery store, and started feeling very lightheaded, clammy like she might pass out. On Monday she started having some substernal chest pressure which is fairly intense at times, but intermittent. She was also having intermittent sharp chest pains. Generally it occurred when she was walking and doing things around the house. She was out of breath and felt faint with any activity and there were some occasional palpitations. There is no associated nausea or radiation. She noted occasional palpitations. Since being the hospital she has had a little bit of chest pressure off and on. She had a Lexiscan stress test yesterday which showed stress-induced ischemia in the mid to distal anterior wall with an ejection fraction of 50%. Since her admission her troponins have been negative and her electrocardiogram is also unremarkable. The patient has no known heart disease. Stress test done in the past before her knee surgery was normal. She does have hypertension and a family history of heart disease. No cholesterol problems, diabetes or smoking. ALLERGIES: Cephalosporins. HOME MEDICATIONS: Xarelto, and last dose was yesterday evening, lisinopril 20 q day, Pro-Air, ropinirole, tramadol. PAST MEDICAL HISTORY: Severe restless leg syndrome. PE in the right lower lobe at [facility] around May 07 and sleep apnea. She has had knee replacement and obesity, cholecystectomy and right oophorectomy. SOCIAL HISTORY: The patient smoked a bit when she was teenager. No drug use or alcohol. She is with three grown children. 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 FAMILY HISTORY: Two sisters had breast cancer. Father of prostate cancer. Mother of heart failure in her 60s of uncertain etiology. One younger brother had a stent and older brother of heart failure when he was in his 60s. REVIEW OF SYSTEMS: No strokes. Recent paralysis, lightheadedness, weakness, and seeing stars. No history of any syncope. No eye problems or ear problems. No trouble swallowing. The patient has some nausea which is vague, but no diarrhea or constipation, bleeding, melena, kidney problems, bladder problems, infections or stones. Some mild arthritis, restless leg syndrome. No edema. No previous history of any blood clots prior to the PE in April. Problems with weight gain. No rashes. No cancers. PHYSICAL EXAMINATION: Blood pressure is 103/58. Pulse is in the 60s to 80s. Afebrile. O2 saturation is 99% on room air and weight is 297 pounds. General appearance: Pleasant, middle-aged, morbidly obese white female in no distress. HEENT: Eyes nonicteric. Jugular venous distention none. Thyroid not palpable. Oropharynx clear. Respiratory: Auscultation clear but non-labored. Cardiac: Heart is regular rate and rhythm. No murmurs, gallops, clicks or rubs. Vasculature: Good carotid upstrokes. No bruits. No abdominal bruits. Pedal pulses are intact. Femoral pulses were intact with no bruits. Abdomen: Obese, soft and nontender. No hepatosplenomegaly, masses or palpable aorta. Extremities: No clubbing, cyanosis. Perhaps a trace of mild edema. Skin: Warm and dry with no lesions. Musculoskeletal: Normal strength and tone for age. Neurologic/psychiatric: Alert, oriented, pleasant, cooperative. Patient seems intelligent and asks intelligent questions. No focal neurologic abnormalities. LABORATORY DATA: Chest x-ray was unremarkable. His chest CT showed no infiltrates or PEs. Lexiscan stress test as above. Electrocardiogram shows sinus rhythm that is normal. Troponins are all normal. BUN 11, glucose 122, creatinine 0.87. Liver enzymes normal. BNP was 19. T4 was 0.89. TSH interestingly was 0.05. IMPRESSION: 1. Chest pain/heaviness with a stress test suggesting anterior ischemia. The patient has risk factors for coronary disease. Her electrocardiogram and troponins are all negative so this may shank turner to be a false positive, but we really do need to evaluate further and she may have acute coronary syndrome. 2. Recent PE in April, on Xarelto, last dose yesterday evening. 3. History of hypertension. 4. Family history of heart disease. 5. Morbid obesity with sleep apnea. 6. Restless leg syndrome. RECOMMENDATION: 1. Cardiac catheterization. We will have to delay this until tomorrow because of the Xarelto, to reduce the bleeding risk. 2. We will cover today with a dose of Lovenox, full dose. 3. Reviewed possibility of needing a stent with dual anti-platelet therapy, superimposed upon the Xarelto, which may increase bleeding risk. 4. Discussed cardiac catheterization, risks and benefit. The risks include bleeding problems, bleeding, blood vessel injury, transfusion, requirement of unanticipated surgery, allergic reactions, arrhythmias, cerebrovascular accident, myocardial infarction, and others. The patient does desire to proceed. Thank you very much for asking us to participate in the care of this nice lady. Zoey Jacobo M.D. ANTONINA/dior TD: 07/10/2013 13:30 CC: Dr. Abiola Zhu [place], [place] Authenticated and Edited by Zoey Jacobo MD On 07/11/13 2:01:25 PM documented in this encounter Plan of Treatment Not on file documented as of this encounter Procedures Procedure Name Priority Date/Time Associated Diagnosis Comments PLASMA BASIC METABOLIC PANEL Routine 07/12/2013 4:39 AM CDT BLOOD CELL COUNT (CBC), MORPHOLOGIC EXAM Routine 07/12/2013 4:39 AM CDT DISCHARGE LABORATORY CUMULATIVE REPORT 07/12/2013 US SOFT TISSUE HEAD NECK Routine 014 11:11 AM CDT CARDIOLOGY PROCEDURE LOG 07/11/2013 CARDIAC CATHETERIZATION Routine 07/12/19 14 12:00 AM CDT CARDIAC CATHETERIZATION Routine 07/12/19 14 12:00 AM CDT PLASMA TRIIODOTHYRONINE (T3) Routine 07/10/2013 7:00 PM CDT PLASMA THYROID-STIMULATING HORMONE (TSH) Routine 07/10/2013 7:00 PM CDT PLASMA TROPONIN I Routine 07/10/2013 5:4 4 AM CDT PLASMA THYROXINE (T4), FREE Routine 07/10/2013 5:44 AM CDT PLASMA THYROID-STIMULATING HORMONE (TSH) Routine 07/10/2013 5:44 AM CDT PLASMA LIPID PANEL Routine 07/10/2013 5: 44 AM CDT BLOOD HEMOGLOBIN A1C Routine 07/10/2013 12:44 AM CDT TRANSTHORACIC ECHO (TTE) COMPLETE W DOPPLER/CF WO CONTRAST 07/10/2013 12:00 AM CDT PULMONARY FUNCTION TEST (PFT) 07/10/2013 PULMONARY FUNCTION TEST (PFT) Routine 07/10/2013 12:00 AM CDT PRE-PRELIMINARY NUCLEAR MEDICINE REPORT Routine 07/09/2013 11:26 AM CDT NM MPI SPECT (REST AND/OR STRESS) MULTIPLE STUDIES Routine 07/09/2013 11:26 AM CDT US ARTERIAL DOPPLER LOWER EXTREMITY COMPLETE Routine 07/09/2013 11:14 AM CDT PLASMA TROPONIN I Routine 07/09/2013 12: 34 AM CDT PLASMA COMPREHENSIVE METABOLIC PANEL Routine 07/09/2013 12:34 AM CDT BLOOD CELL COUNT (CBC), MORPHOLOGIC EXAM Routine 07/09/2013 12:34 AM CDT ELECTROCARDIOGRAPHY (ECG) 07/09/2013 STRESS ECHOCARDIOGRAPHY Routine 07/10/19 14 12:00 AM CDT NASOPHARYNGEAL MUCUS INFLUENZA A, B AG Routine 07/08/2013 8:10 PM CDT PLASMA TROPONIN I Routine 07/08/2013 8:0 1 PM CDT PRE-PRELIMINARY CT SCAN REPORT Routine 07/08/2013 7:[address] CHEST W CONTRAST Routine 07/08/2013 7 :41 PM CDT XR CHEST 1 VIEW Routine 07/08/2013 4:28 PM CDT PLASMA TROPONIN I Routine 07/08/2013 4:1 5 PM CDT PLASMA PROTHROMBIN TIME (PT) Routine 07/08/2013 4:15 PM CDT PLASMA PARTIAL THROMBOPLASTIN TIME (PTT) Routine 07/08/2013 4:15 PM CDT PLASMA COMPREHENSIVE METABOLIC PANEL Routine 07/08/2013 4:15 PM CDT BLOOD D-DIMER Routine 07/08/2013 4:15 PM CDT BLOOD CELL COUNT (CBC), MORPHOLOGIC EXAM Routine 07/08/2013 4:15 PM CDT BLOOD B-TYPE NATRIURETIC PEPTIDE (BNP) Routine 07/08/2013 4:15 PM CDT URINALYSIS Routine 07/08/2013 11:15 AM CDT ELECTROCARDIOGRAPHY (ECG) 07/08/2013 documented in this encounter Results * Blood cell count (CBC), morphologic exam (07/12/2013 4:39 AM CDT) WBC 8.8 5.0 - 10.0 K/cumm HISTORICAL RESULTS RBC 4.32 4.20 - 5.20 M/cumm HISTORICAL RESULTS Hgb 12.1 12.0 - 15.0 g/dl HISTORICAL RESULTS Hct 38.8 37.0 - 47.0 % HISTORICAL RESULTS MCV 89.8 82.0 - 96.0 fl HISTORICAL RESULTS MCH 28.0 27.0 - 32.0 pg HISTORICAL RESULTS MCHC 31.2 29.0 - 35.0 g/dl HISTORICAL RESULTS Platelets 289 150 - 450 K/cumm HISTORICAL RESULTS RDW 45.8 36.4 - 46.3 fl HISTORICAL RESULTS Rdw 13.9 11.5 - 14.5 % HISTORICAL RESULTS MPV 10.1 8.6 - 12.6 fl HISTORICAL RESULTS Neutrophils 56.4 42.0 - 85.0 % HISTORICAL RESULTS Neutrophils, abs 5.0 2.1 - 8.5 K/cumm HISTORICAL RESULTS Lymphocytes 31.4 16.0 - 52.0 % HISTORICAL RESULTS Lymphocytes, abs 2.8 0.8 - 5.2 K/cumm HISTORICAL RESULTS Monos 7.6 1.0 - 13.0 % HISTORICAL RESULTS Monocytes, absolute 0.7 0.0 - 1.3 K/cumm HISTORICAL RESULTS Eosinophils 4.1 0.0 - 7.0 % HISTORICAL RESULTS Eosinophils, abs 0.4 0.0 - 0.7 K/cumm HISTORICAL RESULTS Basophils 0.2 0.0 - 4.0 % HISTORICAL RESULTS Basophils, abs 0.0 0.0 - 0.4 K/cumm HISTORICAL RESULTS Young granulocytes, % 0.3 0.0 - 1.0 % HISTORICAL RESULTS Young granulocyte 0.03 0.00 - 0.10 K/cumm HISTORICAL RESULTS NRBC 0.0 0.0 - 0.2 #/100 WBC HISTORICAL RESULTS NRBC, abs 0.00 0.00 - 0.01 K/cumm HISTORICAL RESULTS Blood specimen (specimen) 07/12/2013 4:39 AM CDT us Elo Lackey MD LAB BLOOD ORDERABLE S Final Result HISTORICAL RESULTS * Plasma basic metabolic panel (07/12/2013 4:39 AM CDT) BUN 14 8 - 24 mg/dl HISTORICAL RESULTS A. gap 8 8 - 16 mmol/L HISTORICAL RESULTS Glucose 131 70 - 199 mg/dl HISTORICAL RESULTS eGFR 86 90 - 200 ml/min/1.7 3 m2 HISTORICAL RESULTS Comment: If this individual is -Malian, multiply result by 1.21 Repeated results of less than 60 is indicative of chronic kidney disease. MDRD formula has not been validated on individuals greater than 70 years old. Sodium 137 135 - 145 mmol/L HISTORICAL RESULTS K, pl 4.2 3.5 - 5.1 mmol/L HISTORICAL RESULTS Chloride 106 100 - 114 mmol/L HISTORICAL RESULTS CO2 27 22 - 32 mmol/L HISTORICAL RESULTS Creatinine 0.70 0.60 - 1.30 mg/dl HISTORICAL RESULTS Calcium 8.8 8.4 - 10.5 mg/dl HISTORICAL RESULTS Plasma 07/12/2013 4:39 AM CDT Elo Lackey MD LAB BLOOD ORDERABLE S Final Result HISTORICAL RESULTS * DISCHARGE LABORATORY CUMULATIVE REPORT (07/12/2013) Narrative 07/12/2013 Ordered by an unspecified provider. Historical Provider LAB BLOOD ORDERABLES Deann l Result * US Soft Tissue Neck (07/11/2013 11:11 AM CDT) Anatomical Region Laterality Modality Head and Neck N/A Ultrasound 07/11/2013 11:1 1 AM CDT Narrative 07/11/2013 12:27 PM CDT DATE OF EXAM: ??Jul 11 2013 11:11AM Acc#: ??[id number] ??EUS 0034 - US Thyroid ?? DIAGNOSIS: ??SHORTNESS OF BREATH (SOB) / CO CLINICAL HISTORY: ?? hyperthyroidism RESULT: \ CLINICAL HISTORY: Hyperthyroidism. SONOGRAM OF THE THYROID Right lobe of the thyroid measures 5.7 cm x 3.2 cm x 2.5 cm. ?? Heterogeneous nodule inferiorly measures 3.3 cm x 2 cm x 2.5 cm, blood flow is noted. ??The left lobe of the thyroid measures 5.3 cm x 2 cm x 1.3 cm. ??A homogeneous nodule is seen laterally measuring 2 cm x 1 cm x 1.3 cm. ??Another is seen superiorly that measures 1.1 cm x less than a centimeter. ??A small nodule is seen in the isthmus as well. IMPRESSION: ?\ THERE IS OVERALL MILD THYROMEGALY AND NODULES ARE PRESENT COMPATIBLE WITH GOITER. PROGRAMMING DEVELOPMENT PROJECT MANAGER: ??OR[place]O TRANSCRIBE DATE/TIME: ??Jul 11 2013 11:58A RADIOLOGIST: ??JOHN CARRINGTON M.D. ??READ ON: ??Jul 11 2013 11:16A ORDERING DR: EUGENIO NAILS M.D. THIS DOCUMENT HAS BEEN ELECTRONICALLY SIGNED BY: ??JOHN CARRINGTON M.D. ??ON: ??Jul 11 2013 12:27P Requesting Fax: ??[phone] Procedure Note Provider, Tyler, - 08/12/2016 DATE OF EXAM: Jul 11 2013 11:11AM Acc#: [id number] EUS 0034 - US Thyroid DIAGNOSIS: SHORTNESS OF BREATH (SOB) / CO CLINICAL HISTORY: hyperthyroidism RESULT: \ CLINICAL HISTORY: Hyperthyroidism. SONOGRAM OF THE THYROID Right lobe of the thyroid measures 5.7 cm x 3.2 cm x 2.5 cm. Heterogeneous nodule inferiorly measures 3.3 cm x 2 cm x 2.5 cm, blood flow is noted. The left lobe of the thyroid measures 5.3 cm x 2 cm x 1.3 cm. A homogeneous nodule is seen laterally measuring 2 cm x 1 cm x 1.3 cm. Another is seen superiorly that measures 1.1 cm x less than a centimeter. A small nodule is seen in the isthmus as well. IMPRESSION: \ THERE IS OVERALL MILD THYROMEGALY AND NODULES ARE PRESENT COMPATIBLE WITH GOITER. PROGRAMMING DEVELOPMENT PROJECT MANAGER: [place]O TRANSCRIBE DATE/TIME: Jul 11 2013 11:58A RADIOLOGIST: JOHN CARRINGTON M.D. READ ON: Jul 11 2013 11:16A ORDERING DR: EUGENIO NAILS M.D. THIS DOCUMENT HAS BEEN ELECTRONICALLY SIGNED BY: JOHN CARRINGTON M.D. ON: Jul 11 2013 12:27P Requesting Historical Provider MD GARCIA US PROCEDURES Final R esult * CARDIOLOGY PROCEDURE LOG (07/11/2013) Anatomical Region Laterality Modality X-Ray Angiograph y Narrative 07/11/2013 Ordered by an unspecified provider. Historical Provider MD FOSTER CARDIAC CATH PROCEDURE S Final Result * Cardiac Catheterization (07/11/2013 12:00 AM CDT) Anatomical Region Laterality Modality X-Ray Angiograph y 07/11/2013 Narrative 07/12/2013 6:51 AM CDT ?CARDIAC LOCKSTITCH TUNNEL ELASTIC OPERATOR Patient: ??MOHSEN MARQUES ? : ? 1955 Account: ??[id number] ? Age: ? 58 Film No: ? Room No: ? 724-02 Attend.: ??Elo Lackey M.D. ?Patient Type: ??SDS Dict.: ?Zoey Jacobo M.D. ? Admit Date: ?07/08/2013 ? CARDIAC CATHETERIZATION REPORT Date of Exam: ??07/11/2013 ACCESSION # CORRECTED (07/12/2013 08:41) BRIEF CLINICAL HISTORY: ?? 58-year-old female with a family history of heart disease, recent PE and hypertension, who was admitted with chest heaviness. Her stress test suggested there was a reversible anterior defect and she is undergoing cardiac catheterization because of suspected coronary artery disease and acute coronary syndrome. PROCEDURE: 1. ??Left heart cath. 2. ??Selective right and left coronary arteriography. 3. ??Left ventriculogram. SITE: ??Right femoral artery. MEDICATIONS GIVEN IN LOCKSTITCH TUNNEL ELASTIC OPERATOR: ?? Versed 4 mg intravenous and fentanyl 100 mcg intravenous push in divided doses. ??In addition, the patient developed SVT at the completion of the procedure, was given Lopressor 5 mg intravenous push times one. TECHNICAL SUMMARY: ??After informed consent, the patient was brought to the paving and surfacing labourer and the right femoral area was prepped and draped in the usual fashion. She was placed on her BIPAP and given conscious sedation, as well as local anesthesia. The right femoral artery was punctured and cannulated with the arterial sheath. ??Selective coronary angiography was performed using the Layne catheters in multiple projections. ??These were withdrawn. ??The pigtail catheter was advanced into the central circulation and the left ventricle for pressure measurements and the left ventriculography, which was performed in the LACKEY projection with 30 mL of contrast. ??The left ventricle was very irritable and the patient had very frequent APCs, PVCs, nonsustained V tach and nonsustained atrial tachycardia. ??After the left ventriculogram, the patient went into a sustained atrial tachycardia with a heart rate of about 116 beats per minute which was asymptomatic. ??She was given Lopressor 5 mg intravenous push and converted back to sinus rhythm. ??The pigtail catheter was withdrawn. Angiography of the right common femoral artery was performed and the sheath was in suitable position for Angio-Seal vascular closure device. Angio-Seal was applied, the sheath was removed and hemostasis was obtained. The patient was taken back to the holding area in stable condition. Estimated blood loss was negligible. HEMODYNAMICS: Pre-angiographic aortic pressure: ??120/80 ?LV pressure: ?? 130/20 ?. Post-angiographic aortic pressure: ??140/85 ?? LV pressure: ?? 140/25 ?. LEFT CORONARY ARTERY: ?? The left main was widely patent and trifurcated. ??The left anterior descending artery was widely patent, wrapping around the apex, free of disease. ??There was a very large intermediate and a small nondominant circumflex, both of which are free of disease. RIGHT CORONARY ARTERY: ?? The dominant right coronary artery is free of disease. LEFT VENTRICULOGRAM: ?? Left ventriculography was performed, but difficult to interpret because of the patient's arrhythmia and development of atrial tachycardia. Overall she looked like she had a hyperdynamic ventricle and ejection fraction greater than 70% and no mitral regurgitation. FINAL DIAGNOSIS: ??1. ?Normal coronary arteries. ??2. ?Hyperdynamic left ventricular function. ??3. ?Elevated left ventricular end diastolic pressure which is consistent ?with a degree of diastolic dysfunction. ??4. ?Sustained atrial tachycardia at the completion of the procedure, rate ?116, asymptomatic, resolved with Lopressor 5 mg intravenous push. RECOMMENDATIONS: ?? Continue risk factor reduction. Dictated by Zoey Jacobo M.D. [facility]/sc Job #: ??[id number] DD: ??07/11/2013 19:57 TD: ??07/12/2013 06:51 CC: Dr. Antoinette Zhu ? ROSALINA Lema Authenticated by Zoey Jacobo MD On 07/12/2013 03:05:02 PM Procedure Note Provider, MD Tyler - 08/23/2016 CARDIAC LOCKSTITCH TUNNEL ELASTIC OPERATOR Patient: MOHSEN MARQUES : 1955 Account: [id number] Age: 58 Film No: Room No: 724-02 Attend.: Elo Lackey M.D. Patient Type: SDS Dict.: Zoey Jacobo M.D. Admit Date: 07/08/2013 CARDIAC CATHETERIZATION REPORT Date of Exam: 07/11/2013 ACCESSION # CORRECTED (07/12/2013 08:41) BRIEF CLINICAL HISTORY: 58-year-old female with a family history ofheart disease, recent PE and hypertension, who was admitted with chestheaviness. Her stress test suggested there was a reversible anterior defect and sheis undergoing cardiac catheterization because of suspected coronary arterydisease and acute coronary syndrome. PROCEDURE: 1. Left heart cath. 2. Selective right and left coronary arteriography. 3. Left ventriculogram. SITE: Right femoral artery. MEDICATIONS GIVEN IN LOCKSTITCH TUNNEL ELASTIC OPERATOR: Versed 4 mg intravenous and fentanyl 100mcg intravenous push in divided doses. In addition, the patient developed SVTat the completion of the procedure, was given Lopressor 5 mg intravenouspush times one. TECHNICAL SUMMARY: After informed consent, the patient was brought to [facility] and the right femoral area was prepped and draped in the usualfashion. She was placed on her BIPAP and given conscious sedation, as well as local anesthesia. The right femoral artery was punctured and cannulated withthe arterial sheath. Selective coronary angiography was performed using the Layne catheters in multiple projections. These were withdrawn. Thepigtail catheter was advanced into the central circulation and the left ventriclefor pressure measurements and the left ventriculography, which was performedin the LACKEY projection with 30 mL of contrast. The left ventricle was veryirritable and the patient had very frequent APCs, PVCs, nonsustained V tach and nonsustained atrial tachycardia. After the left ventriculogram, thepatient went into a sustained atrial tachycardia with a heart rate of about 116beats per minute which was asymptomatic. She was given Lopressor 5 mgintravenous push and converted back to sinus rhythm. The pigtail catheter waswithdrawn. Angiography of the right common femoral artery was performed and thesheath was in suitable position for Angio-Seal vascular closure device. Angio-Sealwas applied, the sheath was removed and hemostasis was obtained. The patientwas taken back to the holding area in stable condition. Estimated blood losswas negligible. HEMODYNAMICS: Pre-angiographic aortic pressure: 120/80 LV pressure: 130/20. Post-angiographic aortic pressure: 140/85 LV pressure: 140/25. LEFT CORONARY ARTERY: The left main was widely patent and trifurcated.The left anterior descending artery was widely patent, wrapping around theapex, free of disease. There was a very large intermediate and a smallnondominant circumflex, both of which are free of disease. RIGHT CORONARY ARTERY: The dominant right coronary artery is free ofdisease. LEFT VENTRICULOGRAM: Left ventriculography was performed, but difficultto interpret because of the patient's arrhythmia and development of atrial tachycardia. Overall she looked like she had a hyperdynamic ventricleand ejection fraction greater than 70% and no mitral regurgitation. FINAL DIAGNOSIS: 1. Normal coronary arteries. 2. Hyperdynamic left ventricular function. 3. Elevated left ventricular end diastolic pressure which isconsistent with a degree of diastolic dysfunction. 4. Sustained atrial tachycardia at the completion of the procedure,rate 116, asymptomatic, resolved with Lopressor 5 mg intravenouspush. RECOMMENDATIONS: Continue risk factor reduction. Dictated by Zoey Jacobo M.D. [facility]/sc TD: 07/12/2013 06:51 CC: Dr. Antoinette Lema, [place] Authenticated by Zoey Jacobo MD On 07/12/2013 03:05:02 PM Historical Provider MD FOSTER CARDIAC CATH PROCEDURE S Final Result * Cardiac Catheterization (07/11/2013 12:00 AM CDT) Anatomical Region Laterality Modality X-Ray Angiograph y 07/11/2013 Narrative 07/12/2013 6:51 AM CDT ?CARDIAC LOCKSTITCH TUNNEL ELASTIC OPERATOR Patient: ??MOHSEN MARQUES ? : ? 1955 Account: ??[id number] ? Age: ? 58 Film No: ? Room No: ? 724-02 Attend.: ??Elo Lackey M.D. ?Patient Type: ??SDS Dict.: ?Zoey Jacobo M.D. ? Admit Date: ?07/08/2013 ? CARDIAC CATHETERIZATION REPORT Date of Exam: ??07/11/2013 BRIEF CLINICAL HISTORY: ?? 58-year-old female with a family history of heart disease, recent PE and hypertension, who was admitted with chest heaviness. Her stress test suggested there was a reversible anterior defect and she is undergoing cardiac catheterization because of suspected coronary artery disease and acute coronary syndrome. PROCEDURE: 1. ??Left heart cath. 2. ??Selective right and left coronary arteriography. 3. ??Left ventriculogram. SITE: ??Right femoral artery. MEDICATIONS GIVEN IN LOCKSTITCH TUNNEL ELASTIC OPERATOR: ?? Versed 4 mg intravenous and fentanyl 100 mcg intravenous push in divided doses. ??In addition, the patient developed SVT at the completion of the procedure, was given Lopressor 5 mg intravenous push times one. TECHNICAL SUMMARY: ??After informed consent, the patient was brought to the paving and surfacing labourer and the right femoral area was prepped and draped in the usual fashion. She was placed on her BIPAP and given conscious sedation, as well as local anesthesia. The right femoral artery was punctured and cannulated with the arterial sheath. ??Selective coronary angiography was performed using the Layne catheters in multiple projections. ??These were withdrawn. ??The pigtail catheter was advanced into the central circulation and the left ventricle for pressure measurements and the left ventriculography, which was performed in the LACKEY projection with 30 mL of contrast. ??The left ventricle was very irritable and the patient had very frequent APCs, PVCs, nonsustained V tach and nonsustained atrial tachycardia. ??After the left ventriculogram, the patient went into a sustained atrial tachycardia with a heart rate of about 116 beats per minute which was asymptomatic. ??She was given Lopressor 5 mg intravenous push and converted back to sinus rhythm. ??The pigtail catheter was withdrawn. Angiography of the right common femoral artery was performed and the sheath was in suitable position for Angio-Seal vascular closure device. Angio-Seal was applied, the sheath was removed and hemostasis was obtained. The patient was taken back to the holding area in stable condition. Estimated blood loss was negligible. HEMODYNAMICS: Pre-angiographic aortic pressure: ??120/80 ?LV pressure: ?? 130/20 ?. Post-angiographic aortic pressure: ??140/85 ?? LV pressure: ?? 140/25 ?. LEFT CORONARY ARTERY: ?? The left main was widely patent and trifurcated. ??The left anterior descending artery was widely patent, wrapping around the apex, free of disease. ??There was a very large intermediate and a small nondominant circumflex, both of which are free of disease. RIGHT CORONARY ARTERY: ?? The dominant right coronary artery is free of disease. LEFT VENTRICULOGRAM: ?? Left ventriculography was performed, but difficult to interpret because of the patient's arrhythmia and development of atrial tachycardia. Overall she looked like she had a hyperdynamic ventricle and ejection fraction greater than 70% and no mitral regurgitation. FINAL DIAGNOSIS: ??1. ?Normal coronary arteries. ??2. ?Hyperdynamic left ventricular function. ??3. ?Elevated left ventricular end diastolic pressure which is consistent ?with a degree of diastolic dysfunction. ??4. ?Sustained atrial tachycardia at the completion of the procedure, rate ?116, asymptomatic, resolved with Lopressor 5 mg intravenous push. RECOMMENDATIONS: ?? Continue risk factor reduction. Dictated by Zoey Jacobo M.D. [facility]/sc Job #: ??[id number] DD: ??07/11/2013 19:57 TD: ??07/12/2013 06:51 CC: Dr. Antoinette Zhu ? ROSALINA Lema Procedure Note Provider, MD Tyler - 08/23/2016 CARDIAC LOCKSTITCH TUNNEL ELASTIC OPERATOR Patient: MOHSEN MARQUES : 1955 Account: [id number] Age: 58 Film No: Room No: 72- Attend.: Elo Lackey M.D. Patient Type: SDS Dict.: Zoey Jacobo M.D. Admit Date: 07/08/2013 CARDIAC CATHETERIZATION REPORT Date of Exam: 07/11/2013 BRIEF CLINICAL HISTORY: 58-year-old female with a family history ofheart disease, recent PE and hypertension, who was admitted with chestheaviness. Her stress test suggested there was a reversible anterior defect and sheis undergoing cardiac catheterization because of suspected coronary arterydisease and acute coronary syndrome. PROCEDURE: 1. Left heart cath. 2. Selective right and left coronary arteriography. 3. Left ventriculogram. SITE: Right femoral artery. MEDICATIONS GIVEN IN LOCKSTITCH TUNNEL ELASTIC OPERATOR: Versed 4 mg intravenous and fentanyl 100mcg intravenous push in divided doses. In addition, the patient developed SVTat the completion of the procedure, was given Lopressor 5 mg intravenouspush times one. TECHNICAL SUMMARY: After informed consent, [facility] the right femoral area was prepped and draped in the usualfashion. She was placed on her BIPAP and given conscious sedation, as well as local anesthesia. The right femoral artery was punctured and cannulated withthe arterial sheath. Selective coronary angiography was performed using the Layne catheters in multiple projections. These were withdrawn. Thepigtail catheter was advanced into the central circulation and the left ventriclefor pressure measurements and the left ventriculography, which was performedin the LACKEY projection with 30 mL of contrast. The left ventricle was veryirritable and the patient had very frequent APCs, PVCs, nonsustained V tach and nonsustained atrial tachycardia. After the left ventriculogram, thepatient went into a sustained atrial tachycardia with a heart rate of about 116beats per minute which was asymptomatic. She was given Lopressor 5 mgintravenous push and converted back to sinus rhythm. The pigtail catheter waswithdrawn. Angiography of the right common femoral artery was performed and thesheath was in suitable position for Angio-Seal vascular closure device. Angio-Sealwas applied, the sheath was removed and hemostasis was obtained. The patientwas taken back to the holding area in stable condition. Estimated blood losswas negligible. HEMODYNAMICS: Pre-angiographic aortic pressure: 120/80 LV pressure: 130/20. Post-angiographic aortic pressure: 140/85 LV pressure: 140/25. LEFT CORONARY ARTERY: The left main was widely patent and trifurcated.The left anterior descending artery was widely patent, wrapping around theapex, free of disease. There was a very large intermediate and a smallnondominant circumflex, both of which are free of disease. RIGHT CORONARY ARTERY: The dominant right coronary artery is free ofdisease. LEFT VENTRICULOGRAM: Left ventriculography was performed, but difficultto interpret because of the patient's arrhythmia and development of atrial tachycardia. Overall she looked like she had a hyperdynamic ventricleand ejection fraction greater than 70% and no mitral regurgitation. FINAL DIAGNOSIS: 1. Normal coronary arteries. 2. Hyperdynamic left ventricular function. 3. Elevated left ventricular end diastolic pressure which isconsistent with a degree of diastolic dysfunction. 4. Sustained atrial tachycardia at the completion of the procedure,rate 116, asymptomatic, resolved with Lopressor 5 mg intravenouspush. RECOMMENDATIONS: Continue risk factor reduction. Dictated by Avery Seymour/ TD: 07/12/2013 06:51 CC: Dr. Antoinette Lema, [place] Historical Provider CV CARDIAC CATH PROCEDURE S Final Result * (ABNORMAL) Plasma thyroid-stimulating hormone (TSH) (07/10/2013 7:00 PM CDT) TSH 0.09(L) 0.34 - 5.60 mcIUnits/ml HISTORICAL RESULTS Plasma 07/10/2013 7:00 PM CDT Result [facility] Eugenio Nails MD LAB BLOOD ORDERABLES Final Resul t Performing Organization Address [facility] de Phone Number HISTORICAL RESULTS * Plasma triiodothyronine (T3) (07/10/2013 7:00 PM CDT) T3 151.0 87.0 - 178.0 ng/dl HISTORICAL RESULTS Plasma 07/10/2013 7:00 PM CDT Result [facility] Eugenio Nails MD LAB BLOOD ORDERABLES Final Resul t Performing Organization Address City/[facility] Co de Phone Number HISTORICAL RESULTS * Plasma troponin I (07/10/2013 5:44 AM CDT) [facility] Troponin I <0.03 0.00 - 0.14 ng/ml HISTORICAL RESULTS Comment: Troponin Reference Ranges: Normal: ?0.00 - 0.14 ng/mL Indeterminate: ?0.15 - 0.50 ng/mL [place] / Cardiac Muscle Damage: ?>0.50 ng/mL Plasma 07/10/2013 5:44 AM CDT Result [facility] Elo Lackey MD LAB BLOOD ORDERABLE S Final Result Performing Organization Address [facility] de Phone Number HISTORICAL RESULTS * Plasma lipid panel (07/10/2013 5:44 AM CDT) [facility] Cholesterol 162 100 - 200 mg/dl HISTORICAL RESULTS Triglycerides 124 10 - 150 mg/dl HISTORICAL RESULTS HDL 40 40 - 59 mg/dl HISTORICAL RESULTS LDL 97 60 - 129 mg/dl HISTORICAL RESULTS Plasma 07/10/2013 5:44 AM CDT Result [facility] Elo Lackey MD LAB BLOOD ORDERABLE S Final Result Performing Organization Address [facility] de Phone Number HISTORICAL RESULTS * Plasma thyroxine (T4), free (07/10/2013 5:44 AM CDT) [facility] Free T4 0.89 0.61 - 1.12 ng/dl HISTORICAL RESULTS Plasma 07/10/2013 5:44 AM CDT Elo Lackey MD LAB BLOOD ORDERABLE S Final Result Performing Organization Address [facility] de Phone Number HISTORICAL RESULTS * (ABNORMAL) Plasma thyroid-stimulating hormone (TSH) (07/10/2013 5:44 AM CDT) TSH 0.05(L) 0.34 - 5.60 mcIUnits/ml HISTORICAL RESULTS Plasma 07/10/2013 5:44 AM CDT Result [facility] Elo Lackey MD LAB BLOOD ORDERABLE S Final Result Performing Organization Address [facility] de Phone Number HISTORICAL RESULTS * (ABNORMAL) Blood hemoglobin A1C (07/10/2013 12:44 AM CDT) Hgb A1C 6.7(H) 4.0 - 6.0 % HISTORICAL RESULTS Comment: Hemoglobin A1c ADA Interpretive Guidelines: ?<7% ?? Glycemia controlled ?>8% ?? Hyperglycemia, additional action recommended ?Lizandro Immunochemical Method Blood specimen (specimen) 07/10/2013 12:44 AM CDT Narrative HISTORICAL RESULTS - 07/10/2013 4:08 PM CDT Test performed at [facility], [address] [place] [address], [facility]. Elo Lackey MD LAB BLOOD ORDERABLE S Final Result Performing Organization Address [facility] de Phone Number HISTORICAL RESULTS * Transthoracic Echo Complete W Doppler/CF WO Contrast (07/10/2013 12:00 AM CDT) Anatomical Region Laterality Modality Ultrasound Narrative 07/10/2013 12:00 AM CDT Ordered by an unspecified provider. Procedure Note Provider, Tyler, - 06/20/2018 Ordered by an unspecified provider. Result [facility] Historical Provider CV ECHO PROCEDURES Final Result * PULMONARY FUNCTION TEST (07/10/2013) Anatomical Region Laterality Modality PFT Narrative 07/10/2013 Ordered by an unspecified provider. Historical Provider MD PFT ORDERABLES Final Res ult * Pulmonary function test (07/10/2013 12:00 AM CDT) Anatomical Region Laterality Modality PFT 07/10/2013 Narrative 07/11/2013 8:38 PM CDT ? PULMONARY FUNCTION REPORT - NE Patient: ??MOHSEN MARQUES Account: ??[id number] ? Room No: ? 724- 02 : ?1955 ? Patient Type: ??SDS Attend.: ??Elo Lackey M.D. ?Admit Date: ?07/08/2013 Dict.: ?Genaro Law M.D. ? Disch. Date: DATE: ??07/10/2013. Patient has borderline restrictive defect and moderate limitation in air flow. Patient has FVC that is 1.92 liters, 65% of predicted. ??FEV1 1.7, 78% of predicted. ??FEV1/FVC ratio is increased. ??Patient's static lung volumes show mild reduction in slow vital capacity, 72% of predicted. ??Thoracic gas volume is 81% predicted. ??Residual volume is 106% of predicted. ??Total lung capacity is therefore 85% of predicted. ??DLCO is 86% of predicted. ??This does not correct for alveolar volume, diminishes. ??Patient's airway resistance is not increased. ??Flow volume loop does not show evidence for upper airway limitation. ??Resting room air saturation is 99%. IMPRESSION: ??Mild reduction in flow rates possibly secondary to morbid obesity with mild reduction in vital capacity. ??Severe reduction in expiratory residual volume. ??Clinical correlation recommended. ??It should be noted that patient had used bronchodilator prior to this study. ??She remains with moderate impairment in air flow. Dictated by: Avery Davila/sarkis Job #: ??[id number] DD: ??07/11/2013 13:50 TD: ??07/11/2013 14:04 Authenticated by Genaro Law MD On 07/11/2013 07:36:51 PM us Historical Provider PFT ORDERABLES Final Res ult * NM MPI Spect (Rest And Stress) Multiple Studies (07/09/2013 11:26 AM CDT) Anatomical Region Laterality Modality Body N/A Nuclear Medicine 07/09/2013 11:2 6 AM CDT Narrative 07/09/2013 2:37 PM CDT DATE OF EXAM: ??Jul 09 2013 11:26AM Acc#: ??[id number] ??ENM 0067 - NM Myocard Perf Rest/Stress Phar ?? DIAGNOSIS: ??SHORTNESS OF BREATH (SOB) / CO CLINICAL HISTORY: ?? R/O CAD RESULT: \ EXAMINATION: REST AND PHARMACOLOGIC STRESS, SPECT MYOCARDIAL IMAGING WITH GATING HISTORY: 58-eder-old female with shortness of breath, anterior chest pressure, generalized chest pain, fatigue, hypertension. RADIOPHARMACEUTICAL: ?? REST: 12.18 mCi technetium 99-m Sestamibi. STRESS: ??34.7 mCi technetium 99-m Setstamibi. LEXISCAN: ??0.4 mg. AMINOPHYLLINE: 125 mg. MAXIMUM PREDICTED HEART RATE: ??163 bpm. MAXIMUM HEART RATE ACHIEVED: ??102 bpm (63% maximum predicted heart rate). FINDINGS: Rest and gated pharmacologic stress myocardial SPECT perfusion study was performed. Left ventricle is normal in size at stress and rest. There is a small to moderate size area of mildly decreased tracer uptake in the mid to distal aspect of the anterior wall with reversibility at rest. There is otherwise a normal perfusion pattern. Gated SPECT images show normal wall motion. The left ventricular ejection fraction is 60%. IMPRESSION: ?\ 1. ??SCINTIGRAPHIC FINDINGS SUGGESTIVE OF STRESS-INDUCED ISCHEMIA OF THE MID TO DISTAL ANTERIOR WALL. 2. ??LEFT VENTRICULAR EJECTION FRACTION OF 60%. A STAT ELECTRONIC REPORT WAS PLACED BY DR. BOCANEGRA AT 11:55 A.M. ON 07/09/2013. ? PROGRAMMING DEVELOPMENT PROJECT MANAGER: ??MJ4 TRANSCRIBE DATE/TIME: ??Jul 09 2013 ??1:25P RADIOLOGIST: ??GLADYS BOCANEGRA M.D. ??READ ON: ??Jul 09 2013 11:55A ORDERING DR: LOREN BONNER M.D. THIS DOCUMENT HAS BEEN ELECTRONICALLY SIGNED BY: ??DALJIT Varela, GLADYS ??ON: ??Jul 09 2013 ??2:37P Procedure Note Provider, MD Tyler - 08/12/2016 DATE OF EXAM: Jul 09 2013 11:26AM Acc#: [id number] ENM 0067 - NM Myocard Perf Rest/Stress Phar DIAGNOSIS: SHORTNESS OF BREATH (SOB) / CO CLINICAL HISTORY: R/O CAD RESULT: \ EXAMINATION: REST AND PHARMACOLOGIC STRESS, SPECT MYOCARDIAL IMAGING WITH GATING HISTORY: 58-eder-old female with shortness of breath, anterior chest pressure, generalized chest pain, fatigue, hypertension. RADIOPHARMACEUTICAL: REST: 12.18 mCi technetium 99-m Sestamibi. STRESS: 34.7 mCi technetium 99-m Setstamibi. LEXISCAN: 0.4 mg. AMINOPHYLLINE: 125 mg. MAXIMUM PREDICTED HEART RATE: 163 bpm. MAXIMUM HEART RATE ACHIEVED: 102 bpm (63% maximum predicted heartrate). FINDINGS: Rest and gated pharmacologic stress myocardial SPECT perfusion study was performed. Left ventricle is normal in size at stress and rest. There is a small to moderate size area of mildly decreased tracer uptake in the mid to distal aspect of the anterior wall with reversibility at rest. There is otherwise a normal perfusion pattern. Gated SPECT images show normal wall motion. The left ventricular ejection fraction is 60%. IMPRESSION: \ 1. SCINTIGRAPHIC FINDINGS SUGGESTIVE OF STRESS-INDUCED ISCHEMIA OF THE MID TO DISTAL ANTERIOR WALL. 2. LEFT VENTRICULAR EJECTION FRACTION OF 60%. A STAT ELECTRONIC REPORT WAS PLACED BY DR. BOCANEGRA AT 11:55 A.M. ON 07/09/2013. PROGRAMMING DEVELOPMENT PROJECT MANAGER: MJ4 TRANSCRIBE DATE/TIME: Jul 09 2013 1:25P RADIOLOGIST: GLADYS BOCANEGRA M.D. READ ON: Jul 09 2013 11:55A ORDERING DR: LOREN BONNER M.D. THIS DOCUMENT HAS BEEN ELECTRONICALLY SIGNED BY: GLADYS BOCANEGRA M.D. ON: Jul 09 2013 2:37P us Historical Provider MD GARCIA NM PROCEDURES Final R esult * PRE-PRELIMINARY NUCLEAR MEDICINE REPORT (07/09/2013 11:26 AM CDT) Anatomical Region Laterality Modality N/A Nuclear Medicine 07/09/2013 11:2 6 AM CDT Narrative 07/09/2013 11:55 AM CDT ED IMAGING PRELIMINARY RESULT PATIENT: MOHSEN MARQUES MR#: [id number] : [id number] SEX: ??F Procedure: ENTTH1 NM Myocard Perf Rest/Stress ?? Exam Date: Acc#: [id number] Pt_Class: I ? Priority: ??RTN Reason: R/O CAD Order Comments: Ord Dr: LOREN BONNER Preliminary Reading Doctor: GLADYS BOCANEGRA M.D., RADIOLOGIST Is this a Critical Result? No ? Result called to: ? Is this Study Normal or Abnormal?: Abnormal ? Comments: Mild stress induced ischemia mid to distal anterior wall ? Additional Comments Line 1: EF 60% ? Additional Comments Line 2: ? Additional Comments Line 3: ? Additional Comments Line 4: ? Procedure Note Provider, Historical, MD - 08/12/2016 ED IMAGING PRELIMINARY RESULT PATIENT: MOHSEN MARQUES MR#: [id number] : [id number] SEX: F Procedure: ENTTH1 NM Myocard Perf Rest/Stress Exam Date: Acc#: [id number] Pt_Class: I Priority: RTN Reason: R/O CAD Order Comments: Ord Dr: DESH HA Preliminary Reading Doctor: GLADYS BOCANEGRA M.D., RADIOLOGIST Is this a Critical Result? No Result called to: Is this Study Normal or Abnormal?: Abnormal Comments: Mild stress induced ischemia mid to distal anterior wall Additional Comments Line 1: EF 60% Additional Comments Line 2: Additional Comments Line 3: Additional Comments Line 4: us Historical Provider MD GARCIA NM PROCEDURES Final R esult * US Arterial Doppler Lower Extremity Complete (07/09/2013 11:14 AM CDT) Anatomical Region Laterality Modality Vascular N/A Ultrasound 07/09/2013 11:1 4 AM CDT Narrative 07/09/2013 3:55 PM CDT DATE OF EXAM: ??Jul 09 2013 11:14AM Acc#: ??[id number] ??CHV 0013 - VL/US Venous Low Ext BI ?? DIAGNOSIS: ??SHORTNESS OF BREATH (SOB) / CO CLINICAL HISTORY: ?? r/o dvt RESULT: \ BILATERAL LOWER EXTREMITY DUPLEX VENOUS DOPPLER STUDY HISTORY: ??History of bilateral leg pain. A bilateral duplex venous Doppler exam was performed of the lower extremities. There is normal appearing flow and compressibility without visible thrombus within the common femoral veins, profunda femoral veins, femoral veins, popliteal veins, peroneal and tibial veins. ??The proximal great saphenous veins and the saphenofemoral junctions demonstrated normal flow and compressibility without visible thrombus. There is no evidence of venous reflux on either side. IMPRESSION: ?? NORMAL BILATERAL LOWER EXTREMITY DUPLEX VENOUS DOPPLER EXAM. ?? PROGRAMMING DEVELOPMENT PROJECT MANAGER: ??PW2 TRANSCRIBE DATE/TIME: ??Jul 09 2013 12:59P RADIOLOGIST: ??SILVIA SEGOVIA M.D. ??READ ON: ??Jul 09 2013 11:27A ORDERING DR: ELO LACKEY M.D. THIS DOCUMENT HAS BEEN ELECTRONICALLY SIGNED BY: ??SILVIA SEGOVIA M.D. ??ON: ??Jul 09 2013 ??3:54P Procedure Note Provider, Tyler, - 08/12/2016 DATE OF EXAM: Jul 09 2013 11:14AM Acc#: [id number] CHV 0013 - VL/US Venous Low Ext BI DIAGNOSIS: SHORTNESS OF BREATH (SOB) / CO CLINICAL HISTORY: r/o dvt RESULT: \ BILATERAL LOWER EXTREMITY DUPLEX VENOUS DOPPLER STUDY HISTORY: History of bilateral leg pain. A bilateral duplex venous Doppler exam was performed of the lower extremities. There is normal appearing flow and compressibility without visible thrombus within the common femoral veins, profunda femoral veins, femoral veins, popliteal veins, peroneal and tibial veins. The proximal great saphenous veins and the saphenofemoral junctions demonstrated normal flow and compressibility without visible thrombus. There is no evidence of venous reflux on either side. IMPRESSION: NORMAL BILATERAL LOWER EXTREMITY DUPLEX VENOUS DOPPLER EXAM. PROGRAMMING DEVELOPMENT PROJECT MANAGER: GUS TRANSCRIBE DATE/TIME: Jul 09 2013 12:59P RADIOLOGIST: SILVIA SEGOVIA M.D. READ ON: Jul 09 2013 11:27A ORDERING DR: ELO LACKEY M.D. THIS DOCUMENT HAS BEEN ELECTRONICALLY SIGNED BY: SILVIA SEGOVIA M.D. ON: Jul 09 2013 3:54P us Historical Provider MD GARCIA US PROCEDURES Final R esult * (ABNORMAL) Blood cell count (CBC), morphologic exam (07/09/2013 12:34 AM CDT) WBC 12.3(H) 5.0 - 10.0 K/cumm HISTORICAL RESULTS RBC 4.23 4.20 - 5.20 M/cumm HISTORICAL RESULTS Hgb 11.8(L) 12.0 - 15.0 g/dl HISTORICAL RESULTS Hct 37.5 37.0 - 47.0 % HISTORICAL RESULTS MCV 88.7 82.0 - 96.0 fl HISTORICAL RESULTS MCH 27.9 27.0 - 32.0 pg HISTORICAL RESULTS MCHC 31.5 29.0 - 35.0 g/dl HISTORICAL RESULTS Platelets 295 150 - 450 K/cumm HISTORICAL RESULTS RDW 44.9 36.4 - 46.3 fl HISTORICAL RESULTS Rdw 13.8 11.5 - 14.5 % HISTORICAL RESULTS MPV 9.7 8.6 - 12.6 fl HISTORICAL RESULTS Neutrophils 59.4 42.0 - 85.0 % HISTORICAL RESULTS Neutrophils, abs 7.3 2.1 - 8.5 K/cumm HISTORICAL RESULTS Lymphocytes 28.3 16.0 - 52.0 % HISTORICAL RESULTS Lymphocytes, abs 3.5 0.8 - 5.2 K/cumm HISTORICAL RESULTS Monos 9.5 1.0 - 13.0 % HISTORICAL RESULTS Monocytes, absolute 1.2 0.0 - 1.3 K/cumm HISTORICAL RESULTS Eosinophils 2.4 0.0 - 7.0 % HISTORICAL RESULTS Eosinophils, abs 0.3 0.0 - 0.7 K/cumm HISTORICAL RESULTS Basophils 0.2 0.0 - 4.0 % HISTORICAL RESULTS Basophils, abs 0.0 0.0 - 0.4 K/cumm HISTORICAL RESULTS Young granulocytes, % 0.2 0.0 - 1.0 % HISTORICAL RESULTS Young granulocyte 0.03 0.00 - 0.10 K/cumm HISTORICAL RESULTS NRBC 0.0 0.0 - 0.2 #/100 WBC HISTORICAL RESULTS NRBC, abs 0.00 0.00 - 0.01 K/cumm HISTORICAL RESULTS Blood specimen (specimen) 07/09/2013 12:34 AM CDT Loren Bonner MD LAB BLOOD ORDERABLES Final Resu Performing Organization Address [facility] de Phone Number HISTORICAL RESULTS * Plasma troponin I (07/09/2013 12:34 AM CDT) Pathologist [facility] Troponin I <0.03 0.00 - 0.14 ng/ml HISTORICAL RESULTS Comment: Troponin Reference Ranges: Normal: ?0.00 - 0.14 ng/mL Indeterminate: ?0.15 - 0.50 ng/mL [place] / Cardiac Muscle Damage: ?>0.50 ng/mL Plasma 07/09/2013 12:3 4 AM CDT Loren Bonner MD LAB BLOOD ORDERABLES Final Resu Performing Organization Address [facility] de Phone Number HISTORICAL RESULTS * (ABNORMAL) Plasma comprehensive metabolic panel (07/09/2013 12:34 AM CDT) Pathologist [facility] BUN 11 8 - 24 mg/dl HISTORICAL RESULTS Glucose 122 70 - 199 mg/dl HISTORICAL RESULTS Sodium 136 135 - 145 mmol/L HISTORICAL RESULTS K, pl 3.9 3.5 - 5.1 mmol/L HISTORICAL RESULTS Chloride 102 100 - 114 mmol/L HISTORICAL RESULTS CO2 27 22 - 32 mmol/L HISTORICAL RESULTS Creatinine 0.87 0.60 - 1.30 mg/dl HISTORICAL RESULTS AST 16 7 - 40 Units/L HISTORICAL RESULTS ALT 16 1 - 45 Units/L HISTORICAL RESULTS Alk phos 64 30 - 110 Units/L HISTORICAL RESULTS Calcium 9.0 8.4 - 10.5 mg/dl HISTORICAL RESULTS Bilirubin 0.88 0.10 - 1.30 mg/dl HISTORICAL RESULTS Protein, pl 7.0 6.0 - 8.3 g/dl HISTORICAL RESULTS Alb 2.8(L) 3.2 - 4.8 g/dl HISTORICAL RESULTS Globulin 4.2 2.0 - 4.3 g/dl HISTORICAL RESULTS A. gap 11 8 - 16 mmol/L HISTORICAL RESULTS Plasma 07/09/2013 12:3 4 AM CDT us Loren Bonner MD LAB BLOOD ORDERABLES Final Resu lt HISTORICAL RESULTS * STRESS ECHOCARDIOGRAPHY (07/09/2013 12:00 AM CDT) Anatomical Region Laterality Modality N/A Nuclear Medicine 07/09/2013 Narrative 07/09/2013 11:49 AM CDT ?CARDIOLOGY GRAPHICS Patient: ??MOHSEN MARQUES Account: ??[id number] ? : ? 1955 Room No: ??724-02 ? Age: ? 58 Attend.: ??Elo Lackey M.D. ?Patient Type: ??SDS Dict.: ?Avery Britt F.A.C.C.S.C.A.I. ? Admit Date: 07/08/2013 ?PHARMACOLOGICAL STRESS TEST Date of Exam: ??07/09/2013 Tech ID#: ??[id number] Indication for test: ??Chest pain, shortness of breath. Lexiscan dose: ??0.4 milligrams Medications: ??Albuterol, ASA, Famotidine, Lisinopril, Metoprolol, Nitroglycerin, Rivaroxaban, Ropinirole, Tramadol. Pre-test ECG: ? Normal __X__ ? Abnormal ST segment abnormality: ??No_X_ ?? Yes___ Symptoms: ??No___ ?? Yes_X_ Arrhythmia: ??No_X_ ?? Yes___ INTERPRETATION: ??58 year old woman referred for a Lexiscan Cardiolite study for evaluation of chest discomfort, shortness of breath and hypertension to screen her for obstructive coronary artery disease. ??The patient received 0.4 milligrams of Lexiscan injection as an intravenous bolus followed by radiotracer injection. ??She had chest pain and nausea with the injection that required reversal with 125 mg bolus dose of Aminophylline promptly. ??She had no arrhythmias. ??Her blood pressure response was appropriate. The resting EKG revealed sinus rhythm at 79 beats per minute. ??With Lexiscan no electrocardiographic changes were noted that were diagnostic. IMPRESSION: ??1. No electrocardiographic changes with Lexiscan injection. ??2. SPECT to follow and should be correlated with this study. ??3. *-*-* ??4. ??5. ??1. Dictated by: Avery Britt F.A.C.C.S.C.A.I. RKG/af Job #: ??[id number] DD: ??07/09/2013 10:11 TD: ??07/09/2013 11:49 Procedure Note Provider, MD Tyler - 08/23/2016 CARDIOLOGY GRAPHICS Patient: MOHSEN MARQUES Account: [id number] : 1955 Room No: 724[facility] Age: 58 Attend.: Elo Lackey M.D. Patient Type: SDS Dict.: Avery Britt F.A.C.C.ITye Admit Date: 07/08/2013 PHARMACOLOGICAL STRESS TEST Date of Exam: 07/09/2013 Tech ID#: [id number] Indication for test: Chest pain, shortness of breath. Lexiscan dose: 0.4 milligrams Medications: Albuterol, ASA, Famotidine, Lisinopril, Metoprolol, Nitroglycerin, Rivaroxaban, Ropinirole, Tramadol. Pre-test ECG: Normal __X__ Abnormal ST segment abnormality: No_X_ Yes___ Symptoms: No___ Yes_X_ Arrhythmia: No_X_ Yes___ INTERPRETATION: 58 year old woman referred for a Lexiscan Cardiolitestudy for evaluation of chest discomfort, shortness of breath and hypertension toscreen her for obstructive coronary artery disease. The patient received 0.4 milligrams of Lexiscan injection as an intravenous bolus followed by radiotracer injection. She had chest pain and nausea with the injectionthat required reversal with 125 mg bolus dose of Aminophylline promptly. Shehad no arrhythmias. Her blood pressure response was appropriate. The resting EKG revealed sinus rhythm at 79 beats per minute. WithLexiscan no electrocardiographic changes were noted that were diagnostic. IMPRESSION: 1. No electrocardiographic changes with Lexiscan injection. 2. SPECT to follow and should be correlated with this study. 3. *-*-* 4. 5. 1. Dictated by: Avery Britt F.A.C.C.G/alexander TD: 07/09/2013 11:49 Historical Provider IMG NM PROCEDURES Final R esult * ELECTROCARDIOGRAPHY (ECG) (07/09/2013) Narrative 07/09/2013 Ordered by an unspecified provider. Historical Provider ECG ORDERABLES Final Res ult * Nasopharyngeal mucus Influenza A, B ag (07/08/2013 8:10 PM CDT) Pathologist [facility] Influ A ag, nasopharyngeal Negative Negative HISTORICAL RESULTS Comment:This test has an est imated 70% sensitivity and 90% specificity. Influ B ag, nasopharyngeal Negative Negative HISTORICAL RESULTS Comment:This test has an est imated 70% sensitivity and 90% specificity. Nasopharynx swab 07/08/2013 8:10 PM CDT Result [facility] Enmanuel Dubon MD LAB BLOOD ORDERABLES Final Result Performing Organization Address [facility] de Phone Number HISTORICAL RESULTS * Plasma troponin I (07/08/2013 8:01 PM CDT) Troponin I <0.03 0.00 - 0.14 ng/ml HISTORICAL RESULTS Comment: Troponin Reference Ranges: Normal: ?0.00 - 0.14 ng/mL Indeterminate: ?0.15 - 0.50 ng/mL IL / Cardiac Muscle Damage: ?>0.50 ng/mL Plasma 07/08/2013 8:01 PM CDT Loren Bonner MD LAB BLOOD ORDERABLES Final Resu lt HISTORICAL RESULTS * CT Chest W Contrast (07/08/2013 7:41 PM CDT) Anatomical Region Laterality Modality Body N/A Computed Tomogra phy 07/08/2013 7:41 PM CDT Narrative 07/08/2013 11:51 PM CDT DATE OF EXAM: ??Jul 08 2013 ??7:41PM Acc#: ??[id number] ??ECT 0123 - CT Chest PE W ?? DIAGNOSIS: ??DIFFICULTY BREATHING CLINICAL HISTORY: ?? Possible P E_Possible Pulmonary Embolis RESULT: \ CT CHEST, PULMONARY EMBOLUS PROTOCOL WITH CONTRAST: HISTORY: Difficulty breathing. Sleep apnea. Shortness of breath. Axial images of the chest were obtained following 100 ml Optiray 350 contrast administration intravenously according to pulmonary embolism protocol. Pulmonary arterial vasculature is normal with no thromboembolic disease. Thoracic aorta is grossly unremarkable. Slightly increased luminal diameter involving the proximal descending thoracic aorta is present but presumably an anatomic variant. There is no suspicious pulmonary nodule. Few punctate nodules may be present at the lung bases measuring less than 0.2 cm in diameter. Pleural thickening is noted at the posterior left lung base with minimal calcification. There are no enlarged thoracic lymph nodes. Small hiatal hernia is present. IMPRESSION: ?\ NO INFILTRATE. NO PULMONARY ARTERIAL THROMBOEMBOLIC DISEASE. PROGRAMMING DEVELOPMENT PROJECT MANAGER: ??LB3 TRANSCRIBE DATE/TIME: ??Jul 08 2013 10:03P RADIOLOGIST: ??ROMIE CORBIN M.D. ??READ ON: ??Jul 08 2013 ??7:46P ORDERING DR: LOREN BONNER M.D. THIS DOCUMENT HAS BEEN ELECTRONICALLY SIGNED BY: ??ROMIE CORBIN M.D. ??ON: ??Jul 08 2013 11:51P Procedure Note Provider, MD Tyler - 08/12/2016 DATE OF EXAM: Jul 08 2013 7:41PM Acc#: [id number] ECT 0123 - CT Chest PE W DIAGNOSIS: DIFFICULTY BREATHING CLINICAL HISTORY: Possible P E_Possible Pulmonary Embolis RESULT: \ CT CHEST, PULMONARY EMBOLUS PROTOCOL WITH CONTRAST: HISTORY: Difficulty breathing. Sleep apnea. Shortness of breath. Axial images of the chest were obtained following 100 ml Optiray 350 contrast administration intravenously according to pulmonary embolism protocol. Pulmonary arterial vasculature is normal with no thromboembolic disease. Thoracic aorta is grossly unremarkable. Slightly increased luminal diameter involving the proximal descending thoracic aorta is present but presumably an anatomic variant. There is no suspicious pulmonary nodule. Few punctate nodules may be present at the lung bases measuring less than 0.2 cm in diameter. Pleural thickening is noted at the posterior left lung base with minimal calcification. There are no enlarged thoracic lymph nodes. Small hiatal hernia is present. IMPRESSION: \ NO INFILTRATE. NO PULMONARY ARTERIAL THROMBOEMBOLIC DISEASE. PROGRAMMING DEVELOPMENT PROJECT MANAGER: LB3 TRANSCRIBE DATE/TIME: Jul 08 2013 10:03P RADIOLOGIST: ROMIE CORBIN M.D. READ ON: Jul 08 2013 7:46P ORDERING DR: LOREN BONNER M.D. THIS DOCUMENT HAS BEEN ELECTRONICALLY SIGNED BY: ROMIE CORBIN M.D. ON: Jul 08 2013 11:51P us Historical Provider MD GARCIA CT PROCEDURES Final R esult * PRE-PRELIMINARY CT SCAN REPORT (07/08/2013 7:41 PM CDT) Anatomical Region Laterality Modality N/A Computed Tomogra phy 07/08/2013 7:41 PM CDT Narrative 07/08/2013 7:46 PM CDT ED IMAGING PRELIMINARY RESULT PATIENT: MOHSEN MARQUES MR#: [id number] : [id number] SEX: ??F Procedure: ECTT4 CT Chest PE W ?? Exam Date: Acc#: [id number] Pt_Class: E ? Priority: ??STAT Reason: Possible P E Order Comments: Ord Dr: LOREN BONNER Preliminary Reading Doctor: ROMIE CORBIN M.D., RADIOLOGIST Is this a Critical Result? No ? Result called to: ? Is this Study Normal or Abnormal?: Normal ? Comments: ? Additional Comments Line 1: ? Additional Comments Line 2: ? Additional Comments Line 3: ? Additional Comments Line 4: ? Procedure Note Provider, Tyler, - 08/12/2016 ED IMAGING PRELIMINARY RESULT PATIENT: MOHSEN MARQUES MR#: [id number] : [id number] SEX: F Procedure: ECTT4 CT Chest PE W Exam Date: Acc#: [id number] Pt_Class: E Priority: STAT Reason: Possible P E Order Comments: Ord Dr: LOREN BONNER Preliminary Reading Doctor: ROMIE CORBIN M.D., RADIOLOGIST Is this a Critical Result? No Result called to: Is this Study Normal or Abnormal?: Normal Comments: Additional Comments Line 1: Additional Comments Line 2: Additional Comments Line 3: Additional Comments Line 4: us Historical Provider IMG CT PROCEDURES Final R esult * XR Chest 1 View (07/08/2013 4:28 PM CDT) Anatomical Region Laterality Modality Body, Chest N/A Radiographic Lizeth ging 07/08/2013 4:28 PM CDT Narrative 07/08/2013 10:45 PM CDT DATE OF EXAM: ??Jul 08 2013 ??4:28PM Acc#: ??[id number] ??EDX 0031 - XR Chest Portable ?? DIAGNOSIS: ??DIFFICULTY BREATHING CLINICAL HISTORY: ?? Breathing Problems_Breathing Problems RESULT: \ SINGLE VIEW CHEST: HISTORY: ??Difficulty breathing. Examination of the chest in the AP projection shows the lungs are clear. There is no infiltrate, effusion, pneumothorax, or congestion. The heart is not enlarged. IMPRESSION: ?\ 1. NO ACTIVE CARDIAC OR PULMONARY DISEASE. 2. THE PATIENT IS QUITE OBESE. PROGRAMMING DEVELOPMENT PROJECT MANAGER: ??LB3 TRANSCRIBE DATE/TIME: ??Jul 08 2013 ??6:35P RADIOLOGIST: ??SILVIA SEGOVIA M.D. ??READ ON: ??Jul 08 2013 ??4:31P ORDERING DR: LOREN BONNER M.D. THIS DOCUMENT HAS BEEN ELECTRONICALLY SIGNED BY: ??JULIETTE Varela, SILVIA ??ON: ??Jul 08 2013 10:45P Procedure Note Provider, Tyler, - 08/12/2016 DATE OF EXAM: Jul 08 2013 4:28PM Acc#: [id number] EDX 0031 - XR Chest Portable DIAGNOSIS: DIFFICULTY BREATHING CLINICAL HISTORY: Breathing Problems_Breathing Problems RESULT: \ SINGLE VIEW CHEST: HISTORY: Difficulty breathing. Examination of the chest in the AP projection shows the lungs are clear. There is no infiltrate, effusion, pneumothorax, or congestion. The heart is not enlarged. IMPRESSION: \ 1. NO ACTIVE CARDIAC OR PULMONARY DISEASE. 2. THE PATIENT IS QUITE OBESE. PROGRAMMING DEVELOPMENT PROJECT MANAGER: JAMISON TRANSCRIBE DATE/TIME: Jul 08 2013 6:35P RADIOLOGIST: SILVIA SEGOVIA M.D. READ ON: Jul 08 2013 4:31P ORDERING DR: LOREN BONNER M.D. THIS DOCUMENT HAS BEEN ELECTRONICALLY SIGNED BY: SILVIA SEGOVIA M.D. ON: Jul 08 2013 10:45P us Historical Provider IMG XR PROCEDURES Final R esult * (ABNORMAL) Plasma prothrombin time (PT) (07/08/2013 4:15 PM CDT) Prothrombin time (PT) 21.5(H) 11.5 - 15.5 seconds HISTORICAL RESULTS INR 1.83(H) 0.81 - 1.21 HISTORIC AL RESULTS Plasma 07/08/2013 4:15 PM CDT Loren Bonner MD LAB BLOOD ORDERABLES Final Resu lt Performing Organization Address City/[facility] Co de Phone Number HISTORICAL RESULTS * Plasma partial thromboplastin time (PTT) (07/08/2013 4:15 PM CDT) APTT 35.1 21.5 - 39.0 seconds HISTORICAL RESULTS Plasma 07/08/2013 4:15 PM CDT Loren Bonner MD LAB BLOOD ORDERABLES Final Resu lt HISTORICAL RESULTS * Blood D-dimer (07/08/2013 4:15 PM CDT) D-dimer 0.2 0.0 - 0.5 mcg/ml FEU HISTORICAL RESULTS Comment: The D-Dimer result should not be used as the sole indicator to rule in or exclude a diagnosis of Pulmonary Embolism or Deep Vein Thrombosis. Blood specimen (specimen) 07/08/2013 4:15 PM CDT Loren Bonner MD LAB BLOOD ORDERABLES Final Resu lt HISTORICAL RESULTS * (ABNORMAL) Blood cell count (CBC), morphologic exam (07/08/2013 4:15 PM CDT) Pathologist [facility] WBC 10.6(H) 5.0 - 10.0 K/cumm HISTORICAL RESULTS Hgb 13.7 12.0 - 15.0 g/dl HISTORICAL RESULTS RBC 4.88 4.20 - 5.20 M/cumm HISTORICAL RESULTS Hct 43.6 37.0 - 47.0 % HISTORICAL RESULTS MCV 89.3 82.0 - 96.0 fl HISTORICAL RESULTS MCH 28.1 27.0 - 32.0 pg HISTORICAL RESULTS MCHC 31.4 29.0 - 35.0 g/dl HISTORICAL RESULTS Platelets 342 150 - 450 K/cumm HISTORICAL RESULTS RDW 44.9 36.4 - 46.3 fl HISTORICAL RESULTS Rdw 13.8 11.5 - 14.5 % HISTORICAL RESULTS MPV 9.9 8.6 - 12.6 fl HISTORICAL RESULTS Neutrophils 59.0 42.0 - 85.0 % HISTORICAL RESULTS Neutrophils, abs 6.3 2.1 - 8.5 K/cumm HISTORICAL RESULTS Lymphocytes 31.0 16.0 - 52.0 % HISTORICAL RESULTS Lymphocytes, abs 3.3 0.8 - 5.2 K/cumm HISTORICAL RESULTS Monos 7.5 1.0 - 13.0 % HISTORICAL RESULTS Monocytes, absolute 0.8 0.0 - 1.3 K/cumm HISTORICAL RESULTS Eosinophils 1.9 0.0 - 7.0 % HISTORICAL RESULTS Eosinophils, abs 0.2 0.0 - 0.7 K/cumm HISTORICAL RESULTS Basophils 0.2 0.0 - 4.0 % HISTORICAL RESULTS Basophils, abs 0.0 0.0 - 0.4 K/cumm HISTORICAL RESULTS Young granulocytes, % 0.4 0.0 - 1.0 % HISTORICAL RESULTS Young granulocyte 0.04 0.00 - 0.10 K/cumm HISTORICAL RESULTS NRBC 0.0 0.0 - 0.2 #/100 WBC HISTORICAL RESULTS NRBC, abs 0.00 0.00 - 0.01 K/cumm HISTORICAL RESULTS Blood specimen (specimen) 07/08/2013 4:15 PM CDT Loren Bonner MD LAB BLOOD ORDERABLES Final Resu lt Performing Organization Address [facility] de Phone Number HISTORICAL RESULTS * Blood B-type natriuretic peptide (BNP) (07/08/2013 4:15 PM CDT) Pathologist [facility] BNP 19 0 - 100 pg/ml HISTORICAL RESULTS Blood specimen (specimen) 07/08/2013 4:15 PM CDT Loren Bonner MD LAB BLOOD ORDERABLES Final Resu lt Performing Organization Address [facility] de Phone Number HISTORICAL RESULTS * Plasma troponin I (07/08/2013 4:15 PM CDT) Troponin I <0.03 0.00 - 0.14 ng/ml HISTORICAL RESULTS Comment: Troponin Reference Ranges: Normal: ?0.00 - 0.14 ng/mL Indeterminate: ?0.15 - 0.50 ng/mL [place] / Cardiac Muscle Damage: ?>0.50 ng/mL Plasma 07/08/2013 4:15 PM CDT Loren Bonner MD LAB BLOOD ORDERABLES Final Resu lt Performing Organization Address [facility] de Phone Number HISTORICAL RESULTS * (ABNORMAL) Plasma comprehensive metabolic panel (07/08/2013 4:15 PM CDT) BUN 10 8 - 24 mg/dl HISTORICAL RESULTS Glucose 91 70 - 199 mg/dl HISTORICAL RESULTS Sodium 135 135 - 145 mmol/L HISTORICAL RESULTS K, pl 4.5 3.5 - 5.1 mmol/L HISTORICAL RESULTS Chloride 102 100 - 114 mmol/L HISTORICAL RESULTS CO2 26 22 - 32 mmol/L HISTORICAL RESULTS Creatinine 0.55(L) 0.60 - 1.30 mg/dl HISTORICAL RESULTS AST 16 7 - 40 Units/L HISTORICAL RESULTS ALT 17 1 - 45 Units/L HISTORICAL RESULTS Alk phos 80 30 - 110 Units/L HISTORICAL RESULTS Calcium 9.9 8.4 - 10.5 mg/dl HISTORICAL RESULTS Bilirubin 0.71 0.10 - 1.30 mg/dl HISTORICAL RESULTS Protein, pl 8.1 6.0 - 8.3 g/dl HISTORICAL RESULTS Alb 3.6 3.2 - 4.8 g/dl HISTORICAL RESULTS Globulin 4.5(H) 2.0 - 4.3 g/dl HISTORICAL RESULTS A. gap 12 8 - 16 mmol/L HISTORICAL RESULTS eGFR >90 90 - 200 ml/min/1.7 3 m2 HISTORICAL RESULTS Comment: If this individual is -Malian, multiply result by 1.21 Repeated results of less than 60 is indicative of chronic kidney disease. MDRD formula has not been validated on individuals greater than 70 years old. Plasma 07/08/2013 4:15 PM CDT us Loren Bonner MD LAB BLOOD ORDERABLES Final Resu lt HISTORICAL RESULTS * (ABNORMAL) Urinalysis (07/08/2013 11:15 AM CDT) Color, ur Yellow HISTORICAL RESULTS Clarity, ur Clear Clear HISTORIC AL RESULTS pH, ur 5.0 5 - 7 HISTORICAL RESULTS Specific gravity, ur 1.014 1.001 - 1.033 HISTORICAL RESULTS Protein, ur Negative Negative HISTORIC AL RESULTS Glucose, ur Negative Negative HISTORIC AL RESULTS Ketones, ur Negative Negative HISTORIC AL RESULTS Bilirubin, ur Negative Negative HISTOR ICAL RESULTS U Blood Moderate(A) Negative HISTORIC AL RESULTS Urobilinogen, quant, ur Normal 0.2 - 1.0 mg/dl HISTORICAL RESULTS Nitrites, ur Negative Negative HISTORI JOY RESULTS Leukocyte esterase, ur Negative Negative HISTORICAL RESULTS Hyaline casts 0 - 5 /lpf HISTOR ICAL RESULTS WBC, ur 0 - 5 0 - 5 /hpf HISTORICA L RESULTS RBC, ur 0 - 5 0 - 5 /hpf HISTORICA L RESULTS Epithelial cells, ur 0 - 2 /hpf HISTORICAL RESULTS Bacteria, ur Trace HISTORI JOY RESULTS Mucus Present HISTORICAL RESULTS Urine 07/08/2013 11:1 5 AM CDT Narrative HISTORICAL RESULTS - 07/08/2013 11:46 AM CDT Result negative for significant evidence of urinary tract infection. Urine Culture not indicated. ? Screening for urinary tract infection by urinalysis has an estimated false negative rate of 5%. ??This should be taken into account in patient management. ? Loren Bonner MD LAB BLOOD ORDERABLES Final Resu lt HISTORICAL RESULTS * ELECTROCARDIOGRAPHY (ECG) (07/08/2013) Narrative 07/08/2013 Ordered by an unspecified provider. Historical Provider ECG ORDERABLES Final Res ult documented in this encounter Visit Diagnoses Diagnosis Other nonspecific abnormal cardiovascular system function study Intermediate coronary syndrome (CMS/HCC) (HCC) Intermediate coronary syndrome Family history of other cardiovascular diseases documented in this encounter Care Teams Associate Trainer Relationship Specialty Start Date End Date Antoinette Zhu MD [address] [address] PCP - General 03/12/13 07/31/13 documented as of this encounter
--- OUTSIDE RECORDS SUMMARY | 2024-04-26 04:34 | XMS_ITS | Encounter Summary ---
Author Organization [facility] Healthcare Address [address] [place] [address] Care Team Providers Care Branch Service Leader Name Role Phone Antoinette Zhu MD Primary Care Provider [phone] [phone] Encounter Details Date Type Department Care Team (Late st Contact Info) Description 12/30/2013 8:58 AM CDT - 12/31/2013 11:59 PM CDT [place] [address] [facility] [address] [place] [address] Thyrotoxicosis Social History Tobacco Use Types Packs/Day Years Used Date Smoking Tobacco: Former Alcohol Use Standard Drinks/Week Comments No 0 (1 standard drink = 0.6 oz pur e alcohol) Comments Unknown Sex and Gender Information Value Date Recorded Sex Assigned at Not on file Legal Sex Female 12:24 AM QC SCIENTIST Gender Identity Not on file Sexual [...] Name Priority Date/Time Associated Diagnosis Comments THYROID RADIOIODINE UPTAKE Routine 12/31/2013 11:00 AM CDT documented in this encounter Results * THYROID RADIOIODINE UPTAKE (12/31/2013 11:00 AM CDT) Anatomical Region Laterality Modality N/A Nuclear Medicine 12/31/2013 11:0 0 AM CDT Narrative 01/01/2014 9:33 AM CDT DATE OF EXAM: ??Dec ??2013 11:00AM Acc#: ??[id number] ??ENM 0148 - NM Thyroid Uptake(s) Measure ?? DIAGNOSIS: ??THYROTOXICOSIS WITHOUT GOITER CLINICAL HISTORY: ?? HYPERTHYROIDISM RESULT: \ EXAM: ??NUCLEAR MEDICINE THYROID SCAN AND UPTAKE DATE: ??12/31/2013 CLINICAL HISTORY: ??Hyperthyroidism TECHNIQUE: After ??uneventful oral administration of 11 microcuries iodine 131, 24-hour radioactive iodine uptake was calculated. ??After the uneventful intravenous administration of 12.7 millicuries technetium 99m pertechnetate, a thyroid scan was performed. Comparison was made to a thyroid ultrasound performed 07/11/2013, which demonstrated multi-nodular goiter. The patient's TSH was 0.12 mIU/mL, T3 was 173 ng/dl and free T4 was 0.78 ng/dl on 12/12/2013. FINDINGS: ??The thyroid scan demonstrates an enlarged right thyroid lobe. There is an area of decreased uptake in the anterior aspect of the upper pole of the left thyroid lobe. ??There is a lobular area extending off the medial aspect of the upper pole of the right thyroid lobe, which may represent the nodule seen in the right aspect of the isthmus. ??Thyroid uptake is otherwise homogeneous. The 24-hour radioactive iodine uptake is 16.3% (normal = 7-32%). IMPRESSION: ?\ 1. ??ENLARGED RIGHT THYROID LOBE. LOBULAR ASPECT OF THE MEDIAL PORTION OF THE UPPER POLE OF THE RIGHT THYROID LOBE LIKELY CORRESPONDS TO A NODULE SEEN IN THE ISTHMUS. 2. ??THERE IS AN AREA OF DECREASED UPTAKE IN THE UPPER POLE OF THE LEFT THYROID LOBE. ??THIS MAY CORRESPOND TO A NODULE SEEN IN THIS AREA. 3. ??NORMAL 24-HOUR RADIOACTIVE IODINE UPTAKE. 4. ??IODINE THERAPY WAS NOT GIVEN RADIOACTIVE IODINE UPTAKE WAS NORMAL. BLOW MOLD TECHNICIAN: ??DM2 TRANSCRIBE DATE/TIME: ??Dec ??2013 ??7:02P RADIOLOGIST: ??RAQUEL BASSETT M.D. ??READ ON: ??Dec ??2013 ??2:31P ORDERING DR: EUGENIO FUENTES M.D. THIS DOCUMENT HAS BEEN ELECTRONICALLY SIGNED BY: ??RAQUEL BASSETT M.D. ??ON: ??Jan 01 2014 ??9:33A Requesting Fax: ??[phone] Procedure Note Provider, MD Tyler - 08/12/2016 DATE OF EXAM: Dec 31 2013 11:00AM Acc#: [id number] [facility] 0148 - [place] Thyroid Uptake(s) Measure DIAGNOSIS: THYROTOXICOSIS WITHOUT GOITER CLINICAL HISTORY: HYPERTHYROIDISM RESULT: \ EXAM: NUCLEAR MEDICINE THYROID SCAN AND UPTAKE DATE: 12/31/2013 CLINICAL HISTORY: Hyperthyroidism TECHNIQUE: After uneventful oral administration of 11 microcuries iodine 131, 24-hour radioactive iodine uptake was calculated. After the uneventful intravenous administration of 12.7 millicuries technetium 99m pertechnetate, a thyroid scan was performed. Comparison was made to a thyroid ultrasound performed 07/11/2013, which demonstrated multi-nodular goiter. The patient's TSH was 0.12 mIU/mL, T3 was 173 ng/dl and free T4 was 0.78 ng/dl on 12/12/2013. FINDINGS: The thyroid scan demonstrates an enlarged right thyroid lobe. There is an area of decreased uptake in the anterior aspect of the upper pole of the left thyroid lobe. There is a lobular area extending off the medial aspect of the upper pole of the right thyroid lobe, which may represent the nodule seen in the right aspect of the isthmus. Thyroid uptake is otherwise homogeneous. The 24-hour radioactive iodine uptake is 16.3% (normal = 7-32%). IMPRESSION: \ 1. ENLARGED RIGHT THYROID LOBE. LOBULAR ASPECT OF THE MEDIAL PORTION OF THE UPPER POLE OF THE RIGHT THYROID LOBE LIKELY CORRESPONDS TO A NODULE SEEN IN THE ISTHMUS. 2. THERE IS AN AREA OF DECREASED UPTAKE IN THE UPPER POLE OF THE LEFT THYROID LOBE. THIS MAY CORRESPOND TO A NODULE SEEN IN THIS AREA. 3. NORMAL 24-HOUR RADIOACTIVE IODINE UPTAKE. 4. IODINE THERAPY WAS NOT GIVEN RADIOACTIVE IODINE UPTAKE WAS NORMAL. BLOW MOLD TECHNICIAN: SUZIE TRANSCRIBE DATE/TIME: Dec 31 2013 7:02P RADIOLOGIST: RAQUEL BASSETT M.D. READ ON: Dec 31 2013 2:31P ORDERING DR: EUGENIO FUENTES M.D. THIS DOCUMENT HAS BEEN ELECTRONICALLY SIGNED BY: RAQUEL BASSETT M.D. ON: Jan 01 2014 9:33A Requesting us Historical Provider MD GARCIA NM PROCEDURES Final R esult documented in this encounter Visit Diagnoses Diagnosis Thyrotoxicosis Thyrotoxicosis without mention of goiter or other cause, without mention of thyrotoxic crisis or storm documented in this encounter Care Teams Branch Service Leader Relationship Specialty Start Date End Date Antoinette Zhu MD [address] [address] PCP - General 08/01/13 07/26/16 documented as of this encounter
--- OUTSIDE RECORDS SUMMARY | 2024-04-26 04:34 | XMS_ITS | Encounter Summary ---
Author Organization [facility] Healthcare Address [address] [place] [address] Care Team Providers Care Technical Communicator Name Role Phone Antoinette Zhu MD Primary Care Provider [phone] [phone] Encounter Details Date Type Department Care Team (Late st Contact Info) Description 12/12/2013 1:46 PM CDT - 12/12/2013 11:59 PM CDT [place] [address] [facility] [address] [place] [address] Nontoxic multinodular goiter Social History Tobacco Use Types Packs/Day Years Used Date Smoking Tobacco: Former Alcohol Use Standard Drinks/Week Comments No 0 (1 standard drink = 0.6 oz pur e alcohol) Comments Unknown Sex and Gender Information Value Date Recorded Sex Assigned at Not on file Legal Sex Female 12:24 AM ARCHAEOLOGIST Gender Identity Not on file Sexual Orientation [...] as of this encounter Visit Diagnoses Diagnosis Nontoxic multinodular goiter documented in this encounter Care Teams Technical Communicator Relationship Specialty Start Date End Date Antoinette Zhu MD [address] [address] PCP - General 08/01/13 07/26/16 documented as of this encounter
--- OUTSIDE RECORDS SUMMARY | 2024-04-26 04:34 | XMS_ITS | Encounter Summary ---
Author Organization [facility] Facility Care Team Providers Care Manager Career Name Role Phone Unavailable Primary Care Provider Unavailabl e Encounter Details Date Type Department Care Team (Late st Contact Info) Description 06/01/2007 10:51 AM SHAKE PACKER - 06/01/2007 4:03 PM SHAKE PACKER Hospital Encounter [facility] Justen Lamar MD [address] [place] [address] Headache; Cardiomegaly; Other acute sinusitis Social History Tobacco Use Types Packs/Day Years Used Date Smoking Tobacco: Never Assessed Comments Unknown Sex and Gender Information Value Date Recorded Sex Assigned at Not on file Legal Sex Female 12:24 AM SHAKE PACKER Gender Identity Not on file Sexual Orientation Not on file documented as of this encounter Plan of Treatment Not on file documented as of this encounter Visit Diagnoses Diagnosis Headache Cardiomegaly Other acute sinusitis documented in this encounter
--- OUTSIDE RECORDS SUMMARY | 2024-04-26 04:34 | XMS_ITS | Encounter Summary ---
Author Organization [facility] Healthcare Address [address] [place] [address] Care Team Providers Care Club Lounge Attendant Name Role Phone Antoinette Zhu MD Primary Care Provider [phone] [phone] Encounter Details Date Type Department Care Team (Late st Contact Info) Description 08/01/2013 3:51 PM CDT - 08/01/2013 11:59 PM CDT [place] [address] [facility] [address] [place] [address] Toxic multinodular goiter Social History Tobacco Use Types Packs/Day Years Used Date Smoking Tobacco: Former Alcohol Use Standard Drinks/Week Comments No 0 (1 standard drink = 0.6 oz pur e alcohol) Comments Unknown Sex and Gender Information Value Date Recorded Sex Assigned at Not on file Legal Sex Female 12:24 AM NURSE PRACTITIONER HOSPITALIST Gender Identity Not on file Sexual Orientation [...] 5 mg daily 0 0 07/19/2013 02/24/2017 metoprolol (LOPRESSOR) 25 mg tablet take 12.5 mg twice daily 0 0 07/19/2013 02/24/2017 rivaroxaban (XARELTO) tablet take 1 [...] Name Priority Date/Time Associated Diagnosis Comments CYTOLOGY 08/01/2013 documented in this encounter Results * Cytology (08/01/2013) Narrative 08/01/2013 Ordered by an unspecified provider. Historical Provider LAB CYTOLOGY ORDERABLES F inal Result documented in this encounter Visit Diagnoses Diagnosis Toxic multinodular goiter Toxic multinodular goiter without mention of thyrotoxic crisis or storm documented in this encounter Care Teams Club Lounge Attendant Relationship Specialty Start Date End Date Antoinette Zhu MD [address] [address] PCP - General 08/01/13 07/26/16 documented as of this encounter
--- OUTSIDE RECORDS SUMMARY | 2024-04-26 04:34 | XMS_ITS | Encounter Summary ---
Author Organization [facility] Facility Care Team Providers Care Magazine Filler Name Role Phone Unavailable Primary Care Provider Unavailabl e Encounter Details Date Type Department Care Team (Late st Contact Info) Description 01/08/2009 - 01/08/2009 11:59 PM CDT Hospital Encounter [facility] Antoinette Ryan MD [address] [address] Other malaise and fatigue Social History Tobacco Use Types Packs/Day Years Used Date Smoking Tobacco: Never Assessed Comments Unknown Sex and Gender Information Value Date Recorded Sex Assigned at Not on file Legal Sex Female 12:24 AM TRANSPORTATION ASSISTANT Gender Identity Not on file Sexual Orientation Not on file documented as of this encounter Plan of Treatment Not on file documented as of this encounter Visit Diagnoses Diagnosis Other malaise and fatigue documented in this encounter
--- OUTSIDE RECORDS SUMMARY | 2024-04-26 04:34 | XMS_ITS | Encounter Summary ---
Author Organization [facility] Healthcare Address [address] [place] [address] Care Team Providers Care Dental Therapist Name Role Phone Antoinette Zhu MD Primary Care Provider [phone] [phone] Encounter Details Date Type Department Care Team (Late st Contact Info) Description 08/01/2013 3:00 PM CDT - 08/01/2013 11:59 PM CDT Hospital [place] [address] [facility] [address] [place] [address] Nontoxic multinodular goiter; Toxic multinodular goiter; Dysmetabolic syndrome X Social History Tobacco Use Types Packs/Day Years Used Date Smoking Tobacco: Former Alcohol Use Standard Drinks/Week Comments No 0 (1 standard drink = 0.6 oz pur e alcohol) Comments Unknown Sex and Gender Information Value Date Recorded Sex Assigned at Not on file Legal Sex Female 12:24 AM INSPECTOR TYPE Gender Identity Not on file Sexual Orientation [...] encounter Visit Diagnoses Diagnosis 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
--- OUTSIDE RECORDS SUMMARY | 2024-04-26 04:34 | XMS_ITS | Encounter Summary ---
Author Organization [facility] Facility Care Team Providers Care Web Search Evaluator Name Role Phone Antoinette Zhu MD Primary Care Provider [phone] Encounter Details Date Type Department Care Team (Latest Contact Info) Description 07/16/2014 - 07/16/2014 11:59 PM CDT Hospital Encounter [facility] Aft, Farzaneh Bell MD PhD [address] [place] [address] Lump or mass in breast; Mammographic microcalcification Social History Tobacco Use Types Packs/Day Years Used Date Smoking Tobacco: Former Alcohol Use Standard Drinks/Week Comments No 0 (1 standard drink = 0.6 oz pur e alcohol) Comments Unknown Sex and Gender Information Value Date Recorded Sex Assigned at Not on file 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 NAYELI SPEARS, FINAL REPORT The radiology attending physician has personally reviewed this study, and has reviewed and/or edited this written report and agrees with it. ACC# ??Date Time ??Exam [id number] Jul 16, 2014 15:01:00 [facility] [address] Diag Mammogram Unilateral R ?? Technologist(s): Preeti Garcia; ; EXAMINATION: ?? RIGHT UNILATERAL FULL FIELD DIGITAL DIAGNOSTIC MAMMOGRAM HISTORY: 59-year-old female with a highly suspicious 1.1 cm left breast mass and concerning left axillary lymph nodes. ??After reviewing the provided outside hospital images a 2 mm group of indeterminate microcalcifications were also identified within the right breast. The study is to evaluate these microcalcifications. TECHNIQUE: Additional views of the RIGHT breast were obtained utilizing full field digital mammography. COMPARISON: 01/27/2011 and 08/02/2012. BREAST PARENCHYMAL COMPOSITION: There are scattered areas of fibroglandular density. FINDINGS: There is a 2 mm group a indistinct microcalcifications in the upper central right breast 10 cm from the nipple correlating with the calcifications seen on the outside hospital images. The calcifications do not definitively layer. IMPRESSION: ?? Upper central ??indistinct right breast microcalcifications. The calcifications are amenable to stereotactic biopsy if the patient wishes. She will be returned to the surgery clinic. If a biopsy of is going to be pursued, then it will be scheduled following consultation with her surgeon. OVERALL FINAL ASSESSMENT: ??BI-RADS Category 4A: Suspicious abnormality. Low suspicion for malignancy. Requested By: Dictated By: ?? NAYELI SPEARS, ?? on Jul 16 2014 ??3:39P This document has been electronically signed by: RAMESH FREEDMAN M.D. on Jul 16 2014 ??5:04P [id number] Procedure Note Provider, MD Tyler - 08/12/2016 RAMESH FREEDMAN M.D. NAYELI SPEARS, FINAL REPORT The radiology attending physician has personally reviewed this study, and has reviewed and/or edited this written report and agrees with it. ACC# Date Time Exam [id number] Jul 16, 2014 15:01:00 [facility] [address] Diag Mammogram Unilateral R Technologist(s): Preeti Garcia; ; EXAMINATION: RIGHT UNILATERAL FULL FIELD DIGITAL DIAGNOSTIC MAMMOGRAM HISTORY: 59-year-old female with a highly suspicious 1.1 cm left breast mass and concerning left axillary lymph nodes. After reviewing the provided outside hospital images a 2 mm group of indeterminate microcalcifications were also identified within the right breast. The study is to evaluate these microcalcifications. TECHNIQUE: Additional views of the RIGHT breast were obtained utilizing full field digital mammography. COMPARISON: 01/27/2011 and 08/02/2012. BREAST PARENCHYMAL COMPOSITION: There are scattered areas of fibroglandular density. FINDINGS: There is a 2 mm group a indistinct microcalcifications in the upper central right breast 10 cm from the nipple correlating with the calcifications seen on the outside hospital images. The calcifications do not definitively layer. IMPRESSION: Upper central indistinct right breast microcalcifications. The calcifications are amenable to stereotactic biopsy if the patient wishes. She will be returned to the surgery clinic. If a biopsy of is going to be pursued, then it will be scheduled following consultation with her surgeon. OVERALL FINAL ASSESSMENT: BI-RADS Category 4A: Suspicious abnormality. Low suspicion for malignancy. Requested By: Dictated By: NAYELI SPEARS on Jul 16 2014 3:39P This document has been electronically signed by: RAMESH FREEDMAN M.D. on Jul 16 2014 5:04P [id number] us Historical Provider MD GARCIA MAMMO PROCEDURES Deann l Result * XR Interpretation Of Outside Films (07/16/2014 11:14 AM CDT) Anatomical Region Laterality Modality N/A Radiographic Lizeth ging 07/16/2014 11:1 4 AM CDT Narrative 07/17/2014 3:52 PM CDT RAMESH FREEDMAN M.D. NAYELI SPEARS, FINAL REPORT The radiology attending physician has personally reviewed this study, and has reviewed and/or edited this written report and agrees with it. ACC# ??Date Time ??Exam [id number] Jul 16, 2014 11:14:00 [facility] [id number] Consult Out Films (read) EXAMINATION: ?? READING OF OUTSIDE IMAGING EXAMINATION - diagnostic left breast mammogram dated 07/07/2014 containing 6 views, and digital screening mammogram dated 07/01/2014 containing 6 views ??from [facility]. DATE OF INTERPRETATION: 07/16/2014 HISTORY: 59-year-old female with a screen detected developing focal asymmetry at the 3 to 4 o'clock position within the left breast 5 cm from the nipple. ??A Diagnostic work up revealed a sonographic correlate (BIRADS 5). ??By report the diagnostic workup also revealed suspicious left axillary lymph nodes. Interpretation of the patient's outside mammogram is requested by Dr. Ramey who is seeing the patient in Breast Surgery Clinic today. COMPARISON: 01/27/2011 and 08/02/2012 BREAST PARENCHYMAL COMPOSITION: There are scattered areas of fibroglandular density. FINDINGS: With regards to the left breast, there is a 1.1 centimeter isointense developing asymmetry in the central outer left breast 10 cm from the nipple. The finding persists on the diagnostic workup dated 07/07/2014 that included full field medial lateral views and spot compression views in craniocaudal, mediolateral oblique, and medial lateral orientations. ?? This is consistent with a suspicious left breast mass. By report there is a sonographic correlate for the mass that would be amenable to ultrasound-guided biopsy. With regard to the right breast, there is a group of indistinct microcalcifications 9 cm from the nipple in the upper central right breast. Additional imaging is recommended to evaluate these calcifications. IMPRESSION: ?? 1. Highly suspicious 1.1 cm left breast mass. This is likely amenable to ultrasound-guided biopsy. Of note, by report the outside hospital sonogram demonstrated a suspicious left axillary lymph nodes. 2. Indeterminate right breast microcalcifications. Additional imaging is recommended. NOTE: The findings, conclusions and recommendations within this report do not replace the initial findings, conclusions and recommendations made at the facility where the study was performed based upon the imaging and clinical condition at that time. ??Review of the prior report and correlation with the clinical history are necessary. The provided images may or may not represent the robinson source data set and thus may contain changes which may lower the sensitivity in the second opinion interpretation. Requested By: Dictated By: ?? NAYELI SPEARS, ?? on Jul 16 2014 11:35A This document has been electronically signed by: RAMESH FREEDMAN M.D. on Jul 17 2014 ??3:52P Procedure Note Provider, MD Tyler - 08/12/2016 RAMESH FREEDMAN M.D. NAYELI SPEARS, FINAL REPORT The radiology attending physician has personally reviewed this study, and has reviewed and/or edited this written report and agrees with it. ACC# Date Time Exam [id number] Jul 16, 2014 11:14:00 [facility] [id number] Consult Out Films (read) EXAMINATION: READING OF OUTSIDE IMAGING EXAMINATION - diagnostic left breast mammogram dated 07/07/2014 containing 6 views, and digital screening mammogram dated 07/01/2014 containing 6 views from [facility]. DATE OF INTERPRETATION: 07/16/2014 HISTORY: 59-year-old female with a screen detected developing focal asymmetry at the 3 to 4 o'clock position within the left breast 5 cm from the nipple. A Diagnostic work up revealed a sonographic correlate (BIRADS 5). By report the diagnostic workup also revealed suspicious left axillary lymph nodes. Interpretation of the patient's outside mammogram is requested by Dr. Ramey who is seeing the patient in Breast Surgery Clinic today. COMPARISON: 01/27/2011 and 08/02/2012 BREAST PARENCHYMAL COMPOSITION: There are scattered areas of fibroglandular density. FINDINGS: With regards to the left breast, there is a 1.1 centimeter isointense developing asymmetry in the central outer left breast 10 cm from the nipple. The finding persists on the diagnostic workup dated 07/07/2014 that included full field medial lateral views and spot compression views in craniocaudal, mediolateral oblique, and medial lateral orientations. This is consistent with a suspicious left breast mass. By report there is a sonographic correlate for the mass that would be amenable to ultrasound-guided biopsy. With regard to the right breast, there is a group of indistinct microcalcifications 9 cm from the nipple in the upper central right breast. Additional imaging is recommended to evaluate these calcifications. IMPRESSION: 1. Highly suspicious 1.1 cm left breast mass. This is likely amenable to ultrasound-guided biopsy. Of note, by report the outside hospital sonogram demonstrated a suspicious left axillary lymph nodes. 2. Indeterminate right breast microcalcifications. Additional imaging is recommended. NOTE: The findings, conclusions and recommendations within this report do not replace the initial findings, conclusions and recommendations made at the facility where the study was performed based upon the imaging and clinical condition at that time. Review of the prior report and correlation with the clinical history are necessary. The provided images may or may not represent the robinson source data set and thus may contain changes which may lower the sensitivity in the second opinion interpretation. Requested By: Dictated By: NAYELI SPEARS on Jul 16 2014 11:35A This document has been electronically signed by: RAMESH FREEDMAN M.D. on Jul 17 2014 3:52P us Historical Provider MD GARCIA XR PROCEDURES Final R esult * XR Interpretation Of Outside Films (07/07/2014 1:40 PM CDT) Anatomical Region Laterality Modality N/A Radiographic Lizeth ging 07/07/2014 1:40 PM CDT us Historical Provider IMMichael XR PROCEDURES Final R esult documented in this encounter Visit Diagnoses Diagnosis Lump or mass in breast Mammographic microcalcification documented in this encounter Care Teams Web Search Evaluator Relationship Specialty Start Date End Date Antoinette Zhu MD [address] [address] PCP - General 08/01/13 07/26/16 documented as of this encounter
--- OUTSIDE RECORDS SUMMARY | 2024-04-26 04:34 | XMS_ITS | Encounter Summary ---
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; Acquired absence of genital organ; Other acquired absence of organ; Personal history of venous thrombosis and embolism Social History Tobacco Use Types Packs/Day Years Used Date Smoking Tobacco: Former Alcohol Use Standard Drinks/Week Comments No 0 (1 standard drink = 0.6 oz pur e alcohol) Comments Unknown Sex and Gender Information Value Date Recorded Sex Assigned at Not on file Legal Sex Female 12:24 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 Gender Identity Not on file Sexual Orientation [...] Comments CT ABDOMEN PELVIS WO CONTRAST Routine 11/28/2013 12:20 AM CDT URINE CHORIONIC GONADOTROPIN (HCG) Routine 11/28/2013 12:16 AM CDT DISCHARGE LABORATORY CUMULATIVE REPORT 11/28/2013 PLASMA BASIC METABOLIC PANEL Routine 11/27/2013 11:45 PM CDT BLOOD CELL COUNT (CBC), MORPHOLOGIC EXAM Routine 11/27/2013 11:45 PM CDT URINALYSIS Routine 11/27/2013 4:46 PM CDT documented in this encounter Results * CT Abdomen Pelvis WO Contrast (11/28/2013 12:20 AM CDT) Anatomical Region Laterality Modality Body N/A Computed Tomogra phy 11/28/2013 12:2 0 AM CDT Narrative 11/28/2013 9:27 AM CDT DATE OF EXAM: ??Nov ??2013 12:20AM Acc#: ??[id number] ??ECT 0073 - CT Abd/Pel WO ?? DIAGNOSIS: ??ABDOMINAL PAIN CLINICAL HISTORY: ?? Renal Stone Protocol_Renal Stone Protocol RESULT: \ CT OF THE ABDOMEN AND PELVIS WITHOUT CONTRAST, STONE PROTOCOL HISTORY: ??This is a 58 year-old woman with right lower quadrant pain and right flank pain, history of ?? renal stones in the past with stent placement. ??Several hernia repairs. Examination performed emergently. FINDINGS: ?? No priors available for comparison. ??Die Mounter radiograph demonstrates multiple surgical wires in the lower abdomen and pelvis from previous ventral hernia repair. ??Mild elevation right diaphragm. ??The visualized portions of the liver and spleen are normal. ??Normal adrenal glands. The pancreas is normal. ??The gallbladder is surgically absent. ?? No free fluid or free air is seen. ??The kidneys are normal in size and outline without mass effect. Bilateral renal calculi are seen, in the left kidney at the lower pole there is an 8-9 mm calculus present, in the right kidney upper pole there is a 3 mm calculus. ??No evidence of perinephric stranding. ??Minimal caliectasis of the right kidney is suspected with mild prominence of the right ureter. There is a radiodensity near the vesicoureteric junction on the right side which could reflect a tiny obstructing calculus versus a phlebolith. ??Uterus is age appropriate. The urinary bladder is incompletely distended. Calcified pelvic phleboliths are noted. Coronal images demonstrate normal bowel gas pattern. ??Degenerative changes are seen at the facet joints at L5-1. ?? IMPRESSION: ?\ BILATERAL RENAL CALCULI LARGER ON THE LEFT THAN THE RIGHT. ??BORDERLINE HYDRONEPHROSIS ON THE RIGHT SIDE WITH A POSSIBLE CALCULUS SMALL IN SIZE IN THE DISTAL LEFT URETER. ??NO OTHER SIGNIFICANT ABNORMALITIES. ??RESULTS CALLED BY [facility]. [employer] SHIPPER: ??SP8 TRANSCRIBE DATE/TIME: ??Nov ??2013 ??9:19A RADIOLOGIST: ??LINSEY DSOZUA M.D. ??READ ON: ??Nov ??2013 ??8:00A ORDERING DR: VINCENT GOEL M.D. THIS DOCUMENT HAS BEEN ELECTRONICALLY SIGNED BY: ??LINSEY DSOUZA M.D. ??ON: ??Nov ??2013 ??9:27A Requesting Fax: ??[phone] Procedure Note Provider, MD Tyler - 08/12/2016 DATE OF EXAM: Nov 28 2013 12:20AM Acc#: [id number] ECT 0073 - CT Abd/Pel WO DIAGNOSIS: ABDOMINAL PAIN CLINICAL HISTORY: Renal Stone Protocol_Renal Stone Protocol RESULT: \ CT OF THE ABDOMEN AND PELVIS WITHOUT CONTRAST, STONE PROTOCOL HISTORY: This is a 58 year-old woman with right lower quadrant pain and right flank pain, history of renal stones in the past with stent placement. Several hernia repairs. Examination performed emergently. FINDINGS: No priors available for comparison. Die Mounter radiograph demonstrates multiple surgical wires in the lower abdomen and pelvis from previous ventral hernia repair. Mild elevation right diaphragm. The visualized portions of the liver and spleen are normal. Normal adrenal glands. The pancreas is normal. The gallbladder is surgically absent. No free fluid or free air is seen. The kidneys are normal in size and outline without mass effect. Bilateral renal calculi are seen, in the left kidney at the lower pole there is an 8-9 mm calculus present, in the right kidney upper pole there is a 3 mm calculus. No evidence of perinephric stranding. Minimal caliectasis of the right kidney is suspected with mild prominence of the right ureter. There is a radiodensity near the vesicoureteric junction on the right side which could reflect a tiny obstructing calculus versus a phlebolith. Uterus is age appropriate. The urinary bladder is incompletely distended. Calcified pelvic phleboliths are noted. Coronal images demonstrate normal bowel gas pattern. Degenerative changes are seen at the facet joints at L5-1. IMPRESSION: \ BILATERAL RENAL CALCULI LARGER ON THE LEFT THAN THE RIGHT. BORDERLINE HYDRONEPHROSIS ON THE RIGHT SIDE WITH A POSSIBLE CALCULUS SMALL IN SIZE IN THE DISTAL LEFT URETER. NO OTHER SIGNIFICANT ABNORMALITIES. RESULTS CALLED BY [facility]. F[employer] SHIPPER: SP8 TRANSCRIBE DATE/TIME: Nov 28 2013 9:19A RADIOLOGIST: LINSEY DSOUZA M.D. READ ON: Nov 28 2013 8:00A ORDERING DR: VINCENT GOEL M.D. THIS DOCUMENT HAS BEEN ELECTRONICALLY SIGNED BY: LINSEY DSOUZA M.D. ON: Nov 28 2013 9:27A Requesting us Historical Provider MD GARCIA CT PROCEDURES Final R esult * Urine chorionic gonadotropin (HCG) (11/28/2013 12:16 AM CDT) HCG, ur Negative HISTORICAL RESULTS Specific gravity, ur 1.018 HISTORICAL RESULTS Urine 11/28/2013 12:1 6 AM CDT Vincent Goel MD LAB BLOOD ORDERABLES Fin al Result HISTORICAL RESULTS * DISCHARGE LABORATORY CUMULATIVE REPORT (11/28/2013) Narrative 11/28/2013 Ordered by an unspecified provider. Historical Provider LAB BLOOD ORDERABLES Deann l Result * (ABNORMAL) Blood cell count (CBC), morphologic exam (11/27/2013 11:45 PM CDT) WBC 10.5(H) 5.0 - 10.0 K/cumm HISTORICAL RESULTS RBC 4.80 4.20 - 5.20 M/cumm HISTORICAL RESULTS Hgb 13.5 12.0 - 15.0 g/dl HISTORICAL RESULTS Hct 41.7 37.0 - 47.0 % HISTORICAL RESULTS MCV 86.9 82.0 - 96.0 fl HISTORICAL RESULTS MCH 28.1 27.0 - 32.0 pg HISTORICAL RESULTS MCHC 32.4 29.0 - 35.0 g/dl HISTORICAL RESULTS Platelets 328 150 - 450 K/cumm HISTORICAL RESULTS RDW 46.4(H) 36.4 - 46.3 fl HISTORICAL RESULTS Rdw 14.5 11.5 - 14.5 % HISTORICAL RESULTS MPV 9.8 8.6 - 12.6 fl HISTORICAL RESULTS Neutrophils 51.1 42.0 - 85.0 % HISTORICAL RESULTS Neutrophils, abs 5.4 2.1 - 8.5 K/cumm HISTORICAL RESULTS Lymphocytes 35.4 16.0 - 52.0 % HISTORICAL RESULTS Lymphocytes, abs 3.7 0.8 - 5.2 K/cumm HISTORICAL RESULTS Monos 8.1 1.0 - 13.0 % HISTORICAL RESULTS Monocytes, absolute 0.8 0.0 - 1.3 K/cumm HISTORICAL RESULTS Eosinophils 4.9 0.0 - 7.0 % HISTORICAL RESULTS Eosinophils, abs 0.5 0.0 - 0.7 K/cumm HISTORICAL RESULTS Basophils 0.2 0.0 - 4.0 % HISTORICAL RESULTS Basophils, abs 0.0 0.0 - 0.4 K/cumm HISTORICAL RESULTS Young granulocytes, % 0.3 0.0 - 1.0 % HISTORICAL RESULTS Young granulocyte 0.03 0.00 - 0.10 K/cumm HISTORICAL RESULTS NRBC 0.0 0.0 - 0.2 #/100 WBC HISTORICAL RESULTS NRBC, abs 0.00 0.00 - 0.01 K/cumm HISTORICAL RESULTS Blood specimen (specimen) 11/27/2013 11:45 PM CDT Vincent Goel MD LAB BLOOD ORDERABLES Fin al Result Performing Organization Address [facility] de Phone Number HISTORICAL RESULTS * Plasma basic metabolic panel (11/27/2013 11:45 PM CDT) BUN 15 8 - 24 mg/dl HISTORICAL RESULTS Glucose 119 70 - 199 mg/dl HISTORICAL RESULTS Sodium 137 135 - 145 mmol/L HISTORICAL RESULTS K, pl 4.3 3.5 - 5.1 mmol/L HISTORICAL RESULTS Chloride 103 100 - 114 mmol/L HISTORICAL RESULTS CO2 26 22 - 32 mmol/L HISTORICAL RESULTS Creatinine 0.76 0.60 - 1.30 mg/dl HISTORICAL RESULTS Calcium 9.5 8.4 - 10.5 mg/dl HISTORICAL RESULTS A. gap 12 8 - 16 mmol/L HISTORICAL RESULTS eGFR 78 90 - 200 ml/min/1.7 3 m2 HISTORICAL RESULTS Comment: If this individual is -[place], multiply result by 1.21 Repeated results of less than 60 is indicative of chronic kidney disease. MDRD formula has not been validated on individuals greater than 70 years old. Plasma 11/27/2013 11:4 5 PM CDT Vincent Goel MD LAB BLOOD ORDERABLES Fin al Result Performing Organization Address [facility] de Phone Number HISTORICAL RESULTS * (ABNORMAL) Urinalysis (11/27/2013 4:46 PM CDT) Color, ur Yellow HISTORICAL RESULTS Clarity, ur Clear Clear HISTORIC AL RESULTS pH, ur 6.0 5 - 7 HISTORICAL RESULTS Specific gravity, ur 1.018 1.001 - 1.033 HISTORICAL RESULTS Protein, ur [...] Leukocyte esterase, ur Negative Negative HISTORICAL RESULTS WBC, ur 0 - 5 0 - 5 /hpf HISTORICA L RESULTS RBC, ur 0 - 5 0 - 5 /hpf HISTORICA L RESULTS Epithelial cells, ur 2 - 5 /hpf HISTORICAL RESULTS Bacteria, ur 1+ HISTORI JOY RESULTS Mucus Present HISTORICAL RESULTS Urine 11/27/2013 4:46 PM CDT Narrative HISTORICAL RESULTS - 11/27/2013 5:38 PM CDT Result negative for significant evidence of urinary tract infection. Urine Culture not indicated. ? Screening for urinary tract infection by urinalysis has an estimated false negative rate of 5%. ??This should be taken into account in patient management. ? 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
--- OUTSIDE RECORDS SUMMARY | 2024-04-26 04:34 | XMS_ITS | Encounter Summary ---
Author Organization [facility] Address [address] [place] [address] Care Team Providers Care Director Marketing Analytics Name Role Phone Antoinette Zhu MD Primary Care Provider [phone] Encounter Details Date Type Department Care Team (Late st Contact Info) Description 04/21/2014 8:37 PM CHAIR MAKER - 04/22/2014 4:13 AM [facility] Hospital [place] [id number] [place] [address] Acute gastritis; Esophageal reflux; Shortness of breath; Essential hypertension; Personal history of venous thrombosis and embolism Social History Tobacco Use Types Packs/Day Years Used Date Smoking Tobacco: Former Alcohol Use Standard Drinks/Week Comments No 0 (1 standard drink = 0.6 oz pur e alcohol) Comments Unknown Sex and Gender Information Value Date Recorded Sex Assigned at Not on file Legal Sex Female 12:24 AM CHAIR MAKER Gender Identity Not on file Sexual [...] Priority Date/Time Associated Diagnosis Comments CT CHEST W CONTRAST Routine 04/22/2014 2 :41 AM CHAIR MAKER DISCHARGE LABORATORY CUMULATIVE REPORT 04/22/2014 NASOPHARYNGEAL MUCUS INFLUENZA A, B AG Routine 04/21/2014 10:17 PM CHAIR MAKER XR CHEST 1 VIEW Routine 04/21/2014 10:07 PM CHAIR MAKER PLASMA TROPONIN I Routine 04/21/2014 9:4 5 PM CHAIR MAKER PLASMA LIPASE Routine 04/21/2014 9:45 PM CHAIR MAKER PLASMA COMPREHENSIVE METABOLIC PANEL Routine 04/21/2014 9:45 PM CHAIR MAKER PLASMA AMYLASE Routine 04/21/2014 9:45 PM CHAIR MAKER BLOOD D-DIMER Routine 04/21/2014 9:45 PM CHAIR MAKER BLOOD CELL COUNT (CBC), MORPHOLOGIC EXAM Routine 04/21/2014 9:45 PM CHAIR MAKER BLOOD B-TYPE NATRIURETIC PEPTIDE (BNP) Routine 04/21/2014 9:45 PM CHAIR MAKER URINALYSIS Routine 04/21/2014 3:30 PM CHAIR MAKER ELECTROCARDIOGRAPHY (ECG) 04/21/2014 documented in this encounter Results * CT Chest W Contrast (04/22/2014 2:41 AM CHAIR MAKER) Anatomical Region Laterality Modality Body N/A Computed Tomogra phy 04/22/2014 2:41 AM CHAIR MAKER Narrative 04/22/2014 10:16 AM CHAIR MAKER DATE OF EXAM: ??Apr 22 2014 ??2:41AM Acc#: ??[id number] ??ECT 0123 - CT Chest PE W ?? DIAGNOSIS: ??NAUSEA, SOB, CHEST PALPITATION CLINICAL HISTORY: ?? Difficulty Breathing_Difficulty Breathing/SOB RESULT: \ CT PULMONARY ANGIOGRAM: CLINICAL HISTORY: ??This is a 58-year-old woman who presents emergently with shortness of breath for two days, previous history of DVT and pulmonary embolus. ??Patient has chest pain and discomfort. Standard CT pulmonary angiographic protocol using 100 mL of Optiray 350. ?? FINDINGS: ??Correlation is made with the study of 07/08/13. Interceptor Operator radiograph demonstrates no acute findings. ??Images reviewed at lung windows demonstrate no infiltrates, fluid, failure, or nodules. ??No pneumothorax. ??Mediastinal windows demonstrate mild enlarged heterogeneous thyroid particularly involving the right lobe. ??Normal vascular enhancement is seen within the aorta, central, and right and left main pulmonary arteries. ??There is no pericardial fluid. ??Limited evaluation of the upper abdomen demonstrates cholecystectomy. ??First and second division pulmonary arterial branches demonstrate no definitive filling defects. ??Suboptimal opacification of the second and third division vessels. ??The aorta is normal without dissection or aneurysmal dilatation. ??Degenerative changes noted within the thoracic spine. ?? IMPRESSION: ?\ NO DEFINITIVE EVIDENCE OF PULMONARY EMBOLIC DISEASE. ??SUBOPTIMAL BOLUS. ?? NO ACUTE EVENT IS SEEN. Results called by [facility]. ?? INDUSTRIAL SERVICE TECHNICIAN: ??DD2 TRANSCRIBE DATE/TIME: ??Apr 22 2014 10:02A RADIOLOGIST: ??LINSEY DSOUZA M.D. ??READ ON: ??Apr 22 2014 ??8:31A ORDERING DR: GREGORIA KNOWLES M.D. THIS DOCUMENT HAS BEEN ELECTRONICALLY SIGNED BY: ??LINSEY DSOUZA M.D. ??ON: ??Apr 22 2014 10:16A Procedure Note Provider, MD Tyler - 08/12/2016 DATE OF EXAM: Apr 22 2014 2:41AM Acc#: [id number] ECT 0123 - CT Chest PE W DIAGNOSIS: NAUSEA, SOB, CHEST PALPITATION CLINICAL HISTORY: Difficulty Breathing_Difficulty Breathing/SOB RESULT: \ CT PULMONARY ANGIOGRAM: CLINICAL HISTORY: This is a 58-year-old woman who presents emergently with shortness of breath for two days, previous history of DVT and pulmonary embolus. Patient has chest pain and discomfort. Standard CT pulmonary angiographic protocol using 100 mL of Optiray 350. FINDINGS: Correlation is made with the study of 07/08/13. Interceptor Operator radiograph demonstrates no acute findings. Images reviewed at lung windows demonstrate no infiltrates, fluid, failure, or nodules. No pneumothorax. Mediastinal windows demonstrate mild enlarged heterogeneous thyroid particularly involving the right lobe. Normal vascular enhancement is seen within the aorta, central, and right and left main pulmonary arteries. There is no pericardial fluid. Limited evaluation of the upper abdomen demonstrates cholecystectomy. First and second division pulmonary arterial branches demonstrate no definitive filling defects. Suboptimal opacification of the second and third division vessels. The aorta is normal without dissection or aneurysmal dilatation. Degenerative changes noted within the thoracic spine. IMPRESSION: \ NO DEFINITIVE EVIDENCE OF PULMONARY EMBOLIC DISEASE. SUBOPTIMAL BOLUS. NO ACUTE EVENT IS SEEN. Results called by [facility]. INDUSTRIAL SERVICE TECHNICIAN: DD2 TRANSCRIBE DATE/TIME: Apr 22 2014 10:02A RADIOLOGIST: LINSEY DSOUZA M.D. READ ON: Apr 22 2014 8:31A ORDERING DR: GREGORIA KNOWLES M.D. THIS DOCUMENT HAS BEEN ELECTRONICALLY SIGNED BY: LINSEY DSOUZA M.D. ON: Apr 22 2014 10:16A Historical Provider IMG CT PROCEDURES Final R esult * DISCHARGE LABORATORY CUMULATIVE REPORT (04/22/2014) Narrative 04/22/2014 Ordered by an unspecified provider. Historical Provider LAB BLOOD ORDERABLES Deann l Result * Nasopharyngeal mucus Influenza A, B ag (04/21/2014 10:17 PM CHAIR MAKER) Influenza A Ag Negative Negative HISTO RICAL RESULTS Comment:This test has an est imated 70% sensitivity and 90% specificity. Influ B ag Negative Negative HISTORICA L RESULTS Comment:This test has an est imated 70% sensitivity and 90% specificity. Nasopharynx swab 04/21/2014 10:17 PM CHAIR MAKER us Gregoria Knowles MD LAB BLOOD ORDERABLES Final Resu lt HISTORICAL RESULTS * XR Chest 1 View (04/21/2014 10:07 PM CHAIR MAKER) Anatomical Region Laterality Modality Body, Chest N/A Radiographic Lizeth ging 04/21/2014 10:0 7 PM CHAIR MAKER Narrative 04/22/2014 11:10 AM CHAIR MAKER DATE OF EXAM: ??Apr 21 2014 10:07PM Acc#: ??[id number] ??EDX 0031 - XR Chest Portable ?? DIAGNOSIS: ??NAUSEA, SOB, CHEST PALPITATION CLINICAL HISTORY: ?? Breathing Problems_Breathing Problems RESULT: \ PORTABLE CHEST, 04/21/14, 2158 HOURS: HISTORY: ??Chest pain, difficulty breathing. Comparison with 11/11/13. Suboptimal inflation noted. ??No infiltrate nor effusion is seen. ??Slight haziness in the lung bases may represent under penetration. ?? IMPRESSION: ?\ NO ACUTE PULMONARY DISEASE. ?? INDUSTRIAL SERVICE TECHNICIAN: ??DD2 TRANSCRIBE DATE/TIME: ??Apr 22 2014 ??9:13A RADIOLOGIST: ??LILY DRIVER M.D. ??READ ON: ??Apr 22 2014 ??8:15A ORDERING DR: GREGORIA KNOWLES M.D. THIS DOCUMENT HAS BEEN ELECTRONICALLY SIGNED BY: ??LILY DRIVER M.D. ??ON: ??Apr 22 2014 11:10A Procedure Note Provider, MD Tyler - 08/12/2016 DATE OF EXAM: Apr 21 2014 10:07PM Acc#: [id number] EDX 0031 - XR Chest Portable DIAGNOSIS: NAUSEA, SOB, CHEST PALPITATION CLINICAL HISTORY: Breathing Problems_Breathing Problems RESULT: \ PORTABLE CHEST, 04/21/14, 2158 HOURS: HISTORY: Chest pain, difficulty breathing. Comparison with 11/11/13. Suboptimal inflation noted. No infiltrate nor effusion is seen. Slight haziness in the lung bases may represent under penetration. IMPRESSION: \ NO ACUTE PULMONARY DISEASE. INDUSTRIAL SERVICE TECHNICIAN: DD2 TRANSCRIBE DATE/TIME: Apr 22 2014 9:13A RADIOLOGIST: LILY DRIVER M.D. READ ON: Apr 22 2014 8:15A ORDERING DR: GREGORIA KNOWLES M.D. THIS DOCUMENT HAS BEEN ELECTRONICALLY SIGNED BY: LILY DRIVER M.D. ON: Apr 22 2014 11:10A Historical Provider IMG XR PROCEDURES Final R esult * (ABNORMAL) Blood D-dimer (04/21/2014 9:45 PM CHAIR MAKER) Pathologist [facility] D-dimer 2.2(H) 0.0 - 0.5 mcg/ml FEU HISTORICAL RESULTS Comment: The D-Dimer result should not be used as the sole indicator to rule in or exclude a diagnosis of Pulmonary Embolism or Deep Vein Thrombosis. Blood specimen (specimen) 04/21/2014 9:45 PM CHAIR MAKER Gregoria Knowles MD LAB BLOOD ORDERABLES Final Resu lt HISTORICAL RESULTS * (ABNORMAL) Blood cell count (CBC), morphologic exam (04/21/2014 9:45 PM CHAIR MAKER) WBC 11.8(H) 3.8 - 9.8 K/cumm HISTORICAL RESULTS RBC 4.99 4.20 - 5.20 M/cumm HISTORICAL RESULTS Hgb 14.2 12.0 - 15.0 g/dl HISTORICAL RESULTS Hct 44.0 37.0 - 47.0 % HISTORICAL RESULTS MCV 88.2 82.0 - 96.0 fl HISTORICAL RESULTS MCH 28.5 27.0 - 32.0 pg HISTORICAL RESULTS MCHC 32.3 29.0 - 35.0 g/dl HISTORICAL RESULTS Platelets 345 150 - 450 K/cumm HISTORICAL RESULTS RDW 46.6(H) 36.4 - 46.3 fl HISTORICAL RESULTS Rdw 14.5 11.5 - 14.5 % HISTORICAL RESULTS MPV 10.0 8.6 - 12.6 fl HISTORICAL RESULTS Neutrophils 61.6 42.0 - 85.0 % HISTORICAL RESULTS Neutrophils, abs 7.3 2.1 - 8.5 K/cumm HISTORICAL RESULTS Lymphocytes 27.2 16.0 - 52.0 % HISTORICAL RESULTS Lymphocytes, abs 3.2 0.8 - 5.2 K/cumm HISTORICAL RESULTS Monos 8.2 1.0 - 13.0 % HISTORICAL RESULTS Monocytes, absolute 1.0 0.0 - 1.3 K/cumm HISTORICAL RESULTS Eosinophils 2.5 0.0 - 7.0 % HISTORICAL RESULTS Eosinophils, [...] 0.01 K/cumm HISTORICAL RESULTS Blood specimen (specimen) 04/21/2014 9:45 PM CHAIR MAKER Gregoria Knowles MD LAB BLOOD ORDERABLES Final Resu lt HISTORICAL RESULTS * Blood B-type natriuretic peptide (BNP) (04/21/2014 9:45 PM CHAIR MAKER) Pathologist [facility] BNP 13 0 - 100 pg/ml HISTORICAL RESULTS Blood specimen (specimen) 04/21/2014 9:45 PM CHAIR MAKER Gregoria Knowles MD LAB BLOOD ORDERABLES Final Resu lt HISTORICAL RESULTS * Plasma troponin I (04/21/2014 9:45 PM CHAIR MAKER) Pathologist [facility] Troponin I <0.03 0.00 - 0.14 ng/ml HISTORICAL RESULTS Comment: Troponin Reference Ranges: Normal: ?0.00 - 0.14 ng/mL Indeterminate: ?0.15 - 0.50 ng/mL FL / Cardiac Muscle Damage: ?>0.50 ng/mL Plasma 04/21/2014 9:45 PM CHAIR MAKER us Gregoria Knowles MD LAB BLOOD ORDERABLES Final Resu lt HISTORICAL RESULTS * (ABNORMAL) Plasma comprehensive metabolic panel (04/21/2014 9:45 PM CHAIR MAKER) BUN 10 8 - 24 mg/dl HISTORICAL RESULTS Glucose 137 70 - 199 mg/dl HISTORICAL RESULTS Sodium 138 135 - 145 mmol/L HISTORICAL RESULTS K, pl 4.4 3.5 - 5.1 mmol/L HISTORICAL RESULTS Chloride 102 100 - 114 mmol/L HISTORICAL RESULTS CO2 31 22 - 32 mmol/L HISTORICAL RESULTS Creatinine 0.62 0.60 - 1.30 mg/dl HISTORICAL RESULTS AST 20 7 - 40 Units/L HISTORICAL RESULTS ALT 20 1 - 45 Units/L HISTORICAL RESULTS Alk phos 77 30 - 110 Units/L HISTORICAL RESULTS Calcium 9.8 8.4 - 10.5 mg/dl HISTORICAL RESULTS Bilirubin 0.50 0.10 - 1.30 mg/dl HISTORICAL RESULTS Protein, pl 8.0 6.0 - 8.3 g/dl HISTORICAL RESULTS Alb 3.5 3.2 - 4.8 g/dl HISTORICAL RESULTS Globulin 4.5(H) 2.0 - 4.3 g/dl HISTORICAL RESULTS A. gap 9 8 - 16 mmol/L HISTORICAL RESULTS eGFR >90 90 - 200 ml/min/1.7 3 m2 HISTORICAL RESULTS Comment: If this individual is -[place], multiply result by 1.21 Repeated results of less than 60 is indicative of chronic kidney disease. MDRD formula has not been validated on individuals greater than 70 years old. Plasma 04/21/2014 9:45 PM CHAIR MAKER Gregoria Knowles MD LAB BLOOD ORDERABLES Final Resu lt Performing Organization Address [facility] Co de Phone Number HISTORICAL RESULTS * Plasma lipase (04/21/2014 9:45 PM CHAIR MAKER) Lip 29 20 - 50 Units/L HISTORICAL RESULTS Plasma 04/21/2014 9:45 PM CHAIR MAKER Gregoria Knowles MD LAB BLOOD ORDERABLES Final Resu lt Performing Organization Address [facility] de Phone Number HISTORICAL RESULTS * Plasma amylase (04/21/2014 9:45 PM CHAIR MAKER) [place], [address] 68 28 - 100 Units/L HISTORICAL RESULTS Plasma 04/21/2014 9:45 PM CHAIR MAKER Result [facility] Gregoria Knowles MD LAB BLOOD ORDERABLES Final Resu lt Performing Organization Address [facility] de Phone Number HISTORICAL RESULTS * (ABNORMAL) Urinalysis (04/21/2014 3:30 PM CHAIR MAKER) Color, ur Yellow HISTORICAL RESULTS Clarity, ur [...] 5 /hpf HISTORICA L RESULTS RBC, ur 5 - 10(A) 0 - 5 /hpf HISTORICA L RESULTS Epithelial cells, ur 2 - 5 /hpf HISTORICAL RESULTS Mucus Present HISTORICAL RESULTS Urine 04/21/2014 3:30 PM CHAIR MAKER Narrative HISTORICAL RESULTS - 04/21/2014 4:38 PM CHAIR MAKER Result negative for significant evidence of urinary tract infection. Urine Culture not indicated. ? Screening for urinary tract infection by urinalysis has an estimated false negative rate of 5%. ??This should be taken into account in patient management. ? Gregoria Knowles MD LAB BLOOD ORDERABLES Final Resu lt HISTORICAL RESULTS * ELECTROCARDIOGRAPHY (ECG) (04/21/2014) Narrative 04/21/2014 Ordered by an unspecified provider. us Historical Provider ECG ORDERABLES Final Res ult documented in this encounter Visit Diagnoses Diagnosis Acute gastritis Acute gastritis without mention of hemorrhage Esophageal reflux Shortness of breath Essential hypertension Unspecified essential hypertension Personal history of venous thrombosis and embolism documented in this encounter Care Teams Director Marketing Analytics Relationship Specialty Start Date End Date Antoinette Zhu MD [address] [address] PCP - General 08/01/13 07/26/16 documented as of this encounter
--- OUTSIDE RECORDS SUMMARY | 2024-04-26 04:34 | XMS_ITS | Encounter Summary ---
Author Organization [facility] Facility Care Team Providers Care Program Aide Name Role Phone Antoinette Zhu MD Primary Care Provider [phone] Encounter Details Date Type Department Care Team (Late st Contact Info) Description 07/21/2014 Hospital Encounter [facility] A[facility], Farzaneh Bell MD PhD [address] [place] [address] Lump or mass in breast; Malignant neoplasm of breast (female) (HCC); Fibroadenosis of breast Social History Tobacco Use Types Packs/Day Years Used Date Smoking Tobacco: Former Alcohol Use Standard Drinks/Week Comments No 0 (1 standard drink = 0.6 oz pur e alcohol) Comments Unknown Sex and Gender Information Value Date Recorded Sex Assigned at Not on file Legal Sex Female 12:24 AM [employer] Gender Identity Not on file Sexual [...] Priority Date/Time Associated Diagnosis Comments US GUIDED LOCALIZATION BREAST Routine 07/21/2014 4:07 PM CDT SONOGRAPHIC ASPIRATION Routine 07/21/2014 3:59 PM CDT US GUIDED LOCALIZATION BREAST Routine 07/21/2014 3:59 PM CDT IR FINE NEEDLE ASPIRATION W IMAGE GUIDANCE Routine 07/21/2014 3:59 PM CDT STEREOTACTIC BREAST BIOPSY Routine 07/21/2014 3:54 PM CDT CYTOLOGY 07/21/2014 SURGICAL PATHOLOGY 07/21/2014 documented in this encounter Results * US Guided Localization Breast (07/21/2014 4:07 PM CDT) Anatomical Region Laterality Modality Breast N/A Ultrasound 07/21/2014 4:07 PM CDT Narrative 07/25/2014 5:57 PM CDT VIOLET ANDERSON M.D. FINAL REPORT The radiology attending physician has personally reviewed this study, and has reviewed and/or edited this written report and agrees with it. ACC# ??Date Time ??Exam [id number] Jul 21, 2014 15:59:00 [facility] [place] [address] Breast Bx Incl Loc Sono L [id number] Jul 21, 2014 15:54:00 [facility] [place] [address] Breast Bx Incl Loc Stereo R [id number] Jul 21, 2014 16:07:00 [facility] [place] [id number] Bilat Post Op Biopsy Film ?? Technologist(s): Lety Jerez; ; [id number] Jul 21, 2014 15:59:00 [facility] [place] [address] Breast FNA BX with Img Gd L [id number] Jul 21, 2014 15:59:00 [facility] [place] [id number] SonoGd FineNdl Aspiration L ?? Technologist(s): Shanthi Hernandez; ; ACC# ??Date Time ??Exam [id number] Jul 21, 2014 15:59:00 [facility] [place] [address] Breast Bx Incl Loc Sono L [id number] Jul 21, 2014 15:54:00 [facility] [place] [address] Breast Bx Incl Loc Stereo R [id number] Jul 21, 2014 16:07:00 [facility] [place] [id number] Bilat Post Op Biopsy Film ?? Technologist(s): Lety Jerez; ; [id number] Jul 21, 2014 15:59:00 [facility] [place] [address] Breast FNA BX with Img Gd L [id number] Jul 21, 2014 15:59:00 [facility] [place] [id number] SonoGd FineNdl Aspiration L ?? Technologist(s): Shanthi Hernandez; ; EXAMINATION: 1. ULTRASOUND-GUIDED CORE BIOPSY LEFT BREAST, TISSUE MARKER CLIP PLACEMENT, AND ULTRASOUND-GUIDED FINE NEEDLE ASPIRATION BIOPSY OF LEFT AXILLARY LYMPH NODE 2. VACUUM-ASSISTED CORE BIOPSY OF THE RIGHT BREAST UTILIZING STEREOTACTIC GUIDANCE, SPECIMEN RADIOGRAPH, TISSUE MARKER CLIP PLACEMENT 3. BILATERAL DIGITAL MAMMOGRAM HISTORY: 59-year-old woman with an abnormal mammogram from another facility. Outside mammograms and a left breast sonogram from [facility] in [place], [place] dated 07/01/2014 and 07/07/2014 demonstrated a suspicious mass measuring approximately 1 cm in the lower outer quadrant of the left breast at the 4 o'clock position and a left axillary lymph node with abnormal cortical thickening. Ultrasound-guided core needle biopsy of the left breast mass and ultrasound-guided fine needle aspiration biopsy of the morphologically abnormal left axillary lymph node are requested to evaluate for malignancy. In addition, a right unilateral diagnostic mammogram performed at [facility] on 07/16/2014 demonstrated a 2 mm group of indeterminate microcalcifications in the central right breast on the craniocaudal view, and this was thought to be located in the upper central right breast. ??Stereotactic-guided core needle biopsy is requested to evaluate for malignancy. LEFT BREAST AND AXILLA PROCEDURE AND FINDINGS: The risks and potential benefits of the procedure were discussed with the patient and written informed consent was obtained. Attention was first directed to the morphologically abnormal left axillary lymph node of interest. After sterile preparation of the skin, 1% lidocaine was utilized for local anesthesia. Three separate 25-gauge needles were successively advanced into the lymph node of interest from a lateral approach utilizing sonographic guidance and cytologic specimens were aspirated. ??Hemostasis was achieved. ??The specimens were submitted for cytologic evaluation. Attention was then directed to the 1 cm hypoechoic mass with irregular margins in the lower outer quadrant of the left breast at the 4 o'clock position that was identified on the breast sonogram from [facility] dated 07/07/2014. ??After sterile preparation of the skin, 1% [...] were obtained through the lesion. An UltraClip ribbon-shaped tissue marker clip was then placed at the biopsy site. Hemostasis was achieved. A sterile bandage and an ice pack were applied. The tissue cores were submitted to surgical pathology in formalin for histologic analysis. 2. RIGHT BREAST PROCEDURE AND FINDINGS: The risks and potential benefits of the procedure were discussed with the patient and written informed consent was obtained. Today's digital images of the right breast performed on a standard mammography unit as well as on the stereotactic-guided core needle biopsy table demonstrate that the two mm group of indeterminate microcalcifications of interest is located within the lower central right breast at approximately the 6 o'clock position (rather than within the upper central right breast, as was thought at the time of diagnostic imaging evaluation dated 07/16/2014). The patient was then placed in the prone position on the stereotactic table with the breast in caudocranial compression. ??The area of interest was localized and targeted utilizing digital imaging with stereotaxis. After sterile preparation of the skin, 1% lidocaine was utilized for local anesthesia at the skin puncture site and 2% lidocaine with epinephrine was utilized for deeper local anesthesia/hemostasis about the biopsy site. A small skin incision was made with a #11 scalpel blade. ??A 9 gauge [employer] vacuum-assisted biopsy needle was then advanced through the skin incision to the level of the calcifications of interest from an inferior approach utilizing stereotactic guidance and a total of 4 tissue cores were obtained. The specimen radiograph demonstrates that the calcifications of interest are included within the tissue cores. ??A [employer] Ultra coil-shaped tissue marker clip was then placed at the biopsy site. The needle was removed and hemostasis was achieved. A sterile bandage and an ice pack were applied. The patient tolerated the procedure well and there is no evidence of significant immediate complication. The patient was given verbal as well as written post procedural instructions prior to release from the department. The two tissue core fragments with the majority of the calcifications of interest were within a small cassette within the jar of formalin for special attention by the pathologist. All of the tissue cores were submitted to surgical pathology in formalin as one specimen for histologic analysis. A two-view bilateral digital mammogram was obtained post procedure. The ribbon-shaped metallic tissue marker clip is located in the expected position within the biopsied suspicious mass in the lower outer quadrant of the left breast at the 4 o'clock position, middle depth. In addition, there is a 1.2 cm mass with irregular margins located more posteriorly within the lower outer quadrant of the left breast at the 4 o'clock position. The inclusive measurement of both of these suspicious masses is 6.4 cm on today's post-biopsy mediolateral view. The coil-shaped metallic tissue marker clip within the right breast is located 1 to 2 cm inferior to the expected position of the biopsied microcalcifications at the 6 o'clock position. The attending radiologist, Dr. Anderson, was present throughout the entire procedure. Dr. Simon (diagnostic resident inspector) also participated in this examination. ?? IMPRESSION: 1) Successful ultrasound-guided core needle biopsy of the suspicious hypoechoic mass located within the lower outer quadrant of the left breast at the 4 o'clock position, middle depth. ??Pathology pending. Of note, there is an additional suspicious mammographic mass located more posteriorly within the lower outer quadrant of the left breast with inclusive measurement 6.4 cm, as discussed above. 2) Successful ultrasound-guided fine needle aspiration biopsy of the morphologically abnormal left axillary lymph node of interest. ??Cytology pending. 3) Successful vacuum-assisted core needle biopsy of the 2 mm group of indeterminate microcalcifications of interest in the lower central right breast utilizing stereotactic guidance. ??Pathology pending. ADDENDUM #1 by Isamar Soriano RN for Dr. Violet Anderson on 07/25/2014 at 5:40 p.m.: Pathology evaluation by Dr. 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 This is a malignant finding and surgical intervention is required. ??The presence of an intraductal papilloma (large/central subtype), with associated calcifications was also noted. Cytology evaluation by Dr. Jane Will of the fine needle aspiration biopsy of the morphologically abnormal LEFT axillary lymph node demonstrated adenocarcinoma. Pathology evaluation by Dr. Ochoa Boo of the tissue cores of the microcalcifications within the lower central right breast demonstrated columnar cell hyperplasia and nodular sclerosing adenosis (with associated calcifications). ??By report, there were no atypical or malignant findings. ??These findings are benign and concordant will the imaging findings. The patient will be notified of the biopsy results and recommendations by the referring physician, Dr. Farzaneh Ramey, who will direct surgical management. Note: If left breast conservation therapy is being considered rather than mastectomy, then biopsy of the 1.2 cm suspicious mammographic mass located more posteriorly within the lower outer quadrant of the left breast at the 4 o'clock position is recommended to evaluate the extent of malignancy. ?? Requested By: Dictated By: ?? SUNNY SIMON, ?? on Jul 21 2014 ??4:20P This document has been electronically signed by: VIOLET ANDERSON M.D. on Jul 21 2014 ??4:50P on Jul ??2014 ??5:41P This Addendum has been electronically signed by: VIOLET ANDERSON M.D. on Jul ??2014 ??5:57P [id number] Procedure Note Provider, MD Tyler - 08/12/2016 VIOLET JUSTIN, M.D. FINAL REPORT The radiology attending physician has personally reviewed this study, and has reviewed and/or edited this written report and agrees with it. ACC# Date Time Exam [id number] Jul 21, 2014 15:59:00 [facility] [place] [address] Breast Bx Incl Loc Sono L [id number] Jul 21, 2014 15:54:00 [facility] [place] [address] Breast Bx Incl Loc Stereo R [id number] Jul 21, 2014 16:07:00 [facility] [place] [id number] Bilat Post Op Biopsy Film Technologist(s): Lety Jerez; ; [id number] Jul 21, 2014 15:59:00 [facility] [place] [address] Breast FNA BX with Img Gd L [id number] Jul 21, 2014 15:59:00 [facility] [place] 86242X SonoGd FineNdl Aspiration L Technologist(s): Shanthi Hernandez; ; ACC# Date Time Exam [id number] Jul 21, 2014 15:59:00 [facility] [place] [address] Breast Bx Incl Loc Sono L [id number] Jul 21, 2014 15:54:00 [facility] [place] [address] Breast Bx Incl Loc Stereo R [id number] Jul 21, 2014 16:07:00 [facility] [place] 91419X Bilat Post Op Biopsy Film Technologist(s): Lety Jerez; ; [id number] Jul 21, 2014 15:59:00 [facility] [place] [address] Breast FNA BX with Img Gd L [id number] Jul 21, 2014 15:59:00 [facility] [place] 29882P SonoGd FineNdl Aspiration L Technologist(s): Shanthi Hernandez; ; EXAMINATION: 1. ULTRASOUND-GUIDED CORE BIOPSY LEFT BREAST, TISSUE MARKER CLIP PLACEMENT, AND ULTRASOUND-GUIDED FINE NEEDLE ASPIRATION BIOPSY OF LEFT AXILLARY LYMPH NODE 2. VACUUM-ASSISTED CORE BIOPSY OF THE RIGHT BREAST UTILIZING STEREOTACTIC GUIDANCE, SPECIMEN RADIOGRAPH, TISSUE MARKER CLIP PLACEMENT 3. BILATERAL DIGITAL MAMMOGRAM HISTORY: 59-year-old woman with an abnormal mammogram from another facility. Outside mammograms and a left breast sonogram from [facility] in [place], [place] dated 07/01/2014 and 07/07/2014 demonstrated a suspicious mass measuring approximately 1 cm in the lower outer quadrant of the left breast at the 4 o'clock position and a left axillary lymph node with abnormal cortical thickening. Ultrasound-guided core needle biopsy of the left breast mass and ultrasound-guided fine needle aspiration biopsy of the morphologically abnormal left axillary lymph node are requested to evaluate for malignancy. In addition, a right unilateral diagnostic mammogram performed at [facility] on 07/16/2014 demonstrated a 2 mm group of indeterminate microcalcifications in the central right breast on the craniocaudal view, and this was thought to be located in the upper central right breast. Stereotactic-guided core needle biopsy is requested to evaluate for malignancy. LEFT BREAST AND AXILLA PROCEDURE AND FINDINGS: The risks and potential benefits of the procedure were discussed with the patient and written informed consent was obtained. Attention was first directed to the morphologically abnormal left axillary lymph node of interest. After sterile preparation of the skin, 1% lidocaine was utilized for local anesthesia. Three separate 25-gauge needles were successively advanced into the lymph node of interest from a lateral approach utilizing sonographic guidance and cytologic specimens were aspirated. Hemostasis was achieved. The specimens were submitted for cytologic evaluation. Attention was then directed to the 1 cm hypoechoic mass with irregular margins in the lower outer quadrant of the left breast at the 4 o'clock position that was identified on the breast sonogram from [facility] dated 07/07/2014. After sterile preparation of the skin, 1% [...] were obtained through the lesion. An UltraClip ribbon-shaped tissue marker clip was then placed at the biopsy site. Hemostasis was achieved. A sterile bandage and an ice pack were applied. The tissue cores were submitted to surgical pathology in formalin for histologic analysis. 2. RIGHT BREAST PROCEDURE AND FINDINGS: The risks and potential benefits of the procedure were discussed with the patient and written informed consent was obtained. Today's digital images of the right breast performed on a standard mammography unit as well as on the stereotactic-guided core needle biopsy table demonstrate that the two mm group of indeterminate microcalcifications of interest is located within the lower central right breast at approximately the 6 o'clock position (rather than within the upper central right breast, as was thought at the time of diagnostic imaging evaluation dated 07/16/2014). The patient was then placed in the prone position on the stereotactic table with the breast in caudocranial compression. The area of interest was localized and targeted utilizing digital imaging with stereotaxis. After sterile preparation of the skin, 1% lidocaine was utilized for local anesthesia at the skin puncture site and 2% lidocaine with epinephrine was utilized for deeper local anesthesia/hemostasis about the biopsy site. A small skin incision was made with a #11 scalpel blade. A 9 gauge [employer] vacuum-assisted biopsy needle was then advanced through the skin incision to the level of the calcifications of interest from an inferior approach utilizing stereotactic guidance and a total of 4 tissue cores were obtained. The specimen radiograph demonstrates that the calcifications of interest are included within the tissue cores. A [employer] Ultra coil-shaped tissue marker clip was then placed at the biopsy site. The needle was removed and hemostasis was achieved. A sterile bandage and an ice pack were applied. The patient tolerated the procedure well and there is no evidence of significant immediate complication. The patient was given verbal as well as written post procedural instructions prior to release from the department. The two tissue core fragments with the majority of the calcifications of interest were within a small cassette within the jar of formalin for special attention by the pathologist. All of the tissue cores were submitted to surgical pathology in formalin as one specimen for histologic analysis. A two-view bilateral digital mammogram was obtained post procedure. The ribbon-shaped metallic tissue marker clip is located in the expected position within the biopsied suspicious mass in the lower outer quadrant of the left breast at the 4 o'clock position, middle depth. In addition, there is a 1.2 cm mass with irregular margins located more posteriorly within the lower outer quadrant of the left breast at the 4 o'clock position. The inclusive measurement of both of these suspicious masses is 6.4 cm on today's post-biopsy mediolateral view. The coil-shaped metallic tissue marker clip within the right breast is located 1 to 2 cm inferior to the expected position of the biopsied microcalcifications at the 6 o'clock position. The attending radiologist, Dr. Anderson, was present throughout the entire procedure. Dr. Simon (diagnostic resident inspector) also participated in this examination. IMPRESSION: 1) Successful ultrasound-guided core needle biopsy of the suspicious hypoechoic mass located within the lower outer quadrant of the left breast at the 4 o'clock position, middle depth. Pathology pending. Of note, there is an additional suspicious mammographic mass located more posteriorly within the lower outer quadrant of the left breast with inclusive measurement 6.4 cm, as discussed above. 2) Successful ultrasound-guided fine needle aspiration biopsy of the morphologically abnormal left axillary lymph node of interest. Cytology pending. 3) Successful vacuum-assisted core needle biopsy of the 2 mm group of indeterminate microcalcifications of interest in the lower central right breast utilizing stereotactic guidance. Pathology pending. ADDENDUM #1 by Isamar Soriano RN for Dr. Violet Anderson on 07/25/2014 at 5:40 p.m.: Pathology evaluation by Dr. 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 This is a malignant finding and surgical intervention is required. The presence of an intraductal papilloma (large/central subtype), with associated calcifications was also noted. Cytology evaluation by Dr. Jane Will of the fine needle aspiration biopsy of the morphologically abnormal LEFT axillary lymph node demonstrated adenocarcinoma. Pathology evaluation by Dr. Ochoa Boo of the tissue cores of the microcalcifications within the lower central right breast demonstrated columnar cell hyperplasia and nodular sclerosing adenosis (with associated calcifications). By report, there were no atypical or malignant findings. These findings are benign and concordant will the imaging findings. The patient will be notified of the biopsy results and recommendations by the referring physician, Dr. Farzaneh Ramey, who will direct surgical management. Note: If left breast conservation therapy is being considered rather than mastectomy, then biopsy of the 1.2 cm suspicious mammographic mass located more posteriorly within the lower outer quadrant of the left breast at the 4 o'clock position is recommended to evaluate the extent of malignancy. Requested By: Dictated By: SUNNY SIMON on Jul 21 2014 4:20P This document has been electronically signed by: VIOLET ANDERSON M.D. on Jul 21 2014 4:50P on Jul 25 2014 5:41P This Addendum has been electronically signed by: VIOLET ANDERSON M.D. on Jul 25 2014 5:57P [id number] us Historical Provider MD GARCIA US PROCEDURES Final R esult * SONOGRAPHIC ASPIRATION (07/21/2014 3:59 PM CDT) Anatomical Region Laterality Modality N/A Ultrasound 07/21/2014 3:59 PM CDT Narrative 07/25/2014 5:57 PM CDT VIOLET ANDERSON M.D. FINAL REPORT The radiology attending physician has personally reviewed this study, and has reviewed and/or edited this written report and agrees with it. ACC# ??Date Time ??Exam [id number] Jul 21, 2014 15:59:00 [facility] [place] [address] Breast Bx Incl Loc Sono L [id number] Jul 21, 2014 15:54:00 [facility] [place] [address] Breast Bx Incl Loc Stereo R [id number] Jul 21, 2014 16:07:00 [facility] [place] 59192V Bilat Post Op Biopsy Film ?? Technologist(s): Lety Jreez; ; [id number] Jul 21, 2014 15:59:00 [facility] [place] [address] Breast FNA BX with Img Gd L [id number] Jul 21, 2014 15:59:00 [facility] [place] 99940N SonoGd FineNdl Aspiration L ?? Technologist(s): Shanthi Hernandez; ; ACC# ??Date Time ??Exam [id number] Jul 21, 2014 15:59:00 [facility] [place] [address] Breast Bx Incl Loc Sono L [id number] Jul 21, 2014 15:54:00 [facility] [place] [address] Breast Bx Incl Loc Stereo R [id number] Jul 21, 2014 16:07:00 [facility] [place] 08572I Bilat Post Op Biopsy Film ?? Technologist(s): Lety Jerez; ; [id number] Jul 21, 2014 15:59:00 [facility] [place] [address] Breast FNA BX with Img Gd L [id number] Jul 21, 2014 15:59:00 [facility] [place] 46948H SonoGd FineNdl Aspiration L ?? Technologist(s): Shnathi Hernandez; ; EXAMINATION: 1. ULTRASOUND-GUIDED CORE BIOPSY LEFT BREAST, TISSUE MARKER CLIP PLACEMENT, AND ULTRASOUND-GUIDED FINE NEEDLE ASPIRATION BIOPSY OF LEFT AXILLARY LYMPH NODE 2. VACUUM-ASSISTED CORE BIOPSY OF THE RIGHT BREAST UTILIZING STEREOTACTIC GUIDANCE, SPECIMEN RADIOGRAPH, TISSUE MARKER CLIP PLACEMENT 3. BILATERAL DIGITAL MAMMOGRAM HISTORY: 59-year-old woman with an abnormal mammogram from another facility. Outside mammograms and a left breast sonogram from [facility] in [place], [place] dated 07/01/2014 and 07/07/2014 demonstrated a suspicious mass measuring approximately 1 cm in the lower outer quadrant of the left breast at the 4 o'clock position and a left axillary lymph node with abnormal cortical thickening. Ultrasound-guided core needle biopsy of the left breast mass and ultrasound-guided fine needle aspiration biopsy of the morphologically abnormal left axillary lymph node are requested to evaluate for malignancy. In addition, a right unilateral diagnostic mammogram performed at [facility] on 07/16/2014 demonstrated a 2 mm group of indeterminate microcalcifications in the central right breast on the craniocaudal view, and this was thought to be located in the upper central right breast. ??Stereotactic-guided core needle biopsy is requested to evaluate for malignancy. LEFT BREAST AND AXILLA PROCEDURE AND FINDINGS: The risks and potential benefits of the procedure were discussed with the patient and written informed consent was obtained. Attention was first directed to the morphologically abnormal left axillary lymph node of interest. After sterile preparation of the skin, 1% lidocaine was utilized for local anesthesia. Three separate 25-gauge needles were successively advanced into the lymph node of interest from a lateral approach utilizing sonographic guidance and cytologic specimens were aspirated. ??Hemostasis was achieved. ??The specimens were submitted for cytologic evaluation. Attention was then directed to the 1 cm hypoechoic mass with irregular margins in the lower outer quadrant of the left breast at the 4 o'clock position that was identified on the breast sonogram from [facility] dated 07/07/2014. ??After sterile preparation of the skin, 1% [...] were obtained through the lesion. An UltraClip ribbon-shaped tissue marker clip was then placed at the biopsy site. Hemostasis was achieved. A sterile bandage and an ice pack were applied. The tissue cores were submitted to surgical pathology in formalin for histologic analysis. 2. RIGHT BREAST PROCEDURE AND FINDINGS: The risks and potential benefits of the procedure were discussed with the patient and written informed consent was obtained. Today's digital images of the right breast performed on a standard mammography unit as well as on the stereotactic-guided core needle biopsy table demonstrate that the two mm group of indeterminate microcalcifications of interest is located within the lower central right breast at approximately the 6 o'clock position (rather than within the upper central right breast, as was thought at the time of diagnostic imaging evaluation dated 07/16/2014). The patient was then placed in the prone position on the stereotactic table with the breast in caudocranial compression. ??The area of interest was localized and targeted utilizing digital imaging with stereotaxis. After sterile preparation of the skin, 1% lidocaine was utilized for local anesthesia at the skin puncture site and 2% lidocaine with epinephrine was utilized for deeper local anesthesia/hemostasis about the biopsy site. A small skin incision was made with a #11 scalpel blade. ??A 9 gauge [employer] vacuum-assisted biopsy needle was then advanced through the skin incision to the level of the calcifications of interest from an inferior approach utilizing stereotactic guidance and a total of 4 tissue cores were obtained. The specimen radiograph demonstrates that the calcifications of interest are included within the tissue cores. ??A [employer] Ultra coil-shaped tissue marker clip was then placed at the biopsy site. The needle was removed and hemostasis was achieved. A sterile bandage and an ice pack were applied. The patient tolerated the procedure well and there is no evidence of significant immediate complication. The patient was given verbal as well as written post procedural instructions prior to release from the department. The two tissue core fragments with the majority of the calcifications of interest were within a small cassette within the jar of formalin for special attention by the pathologist. All of the tissue cores were submitted to surgical pathology in formalin as one specimen for histologic analysis. A two-view bilateral digital mammogram was obtained post procedure. The ribbon-shaped metallic tissue marker clip is located in the expected position within the biopsied suspicious mass in the lower outer quadrant of the left breast at the 4 o'clock position, middle depth. In addition, there is a 1.2 cm mass with irregular margins located more posteriorly within the lower outer quadrant of the left breast at the 4 o'clock position. The inclusive measurement of both of these suspicious masses is 6.4 cm on today's post-biopsy mediolateral view. The coil-shaped metallic tissue marker clip within the right breast is located 1 to 2 cm inferior to the expected position of the biopsied microcalcifications at the 6 o'clock position. The attending radiologist, Dr. Anderson, was present throughout the entire procedure. Dr. Simon (diagnostic resident inspector) also participated in this examination. ?? IMPRESSION: 1) Successful ultrasound-guided core needle biopsy of the suspicious hypoechoic mass located within the lower outer quadrant of the left breast at the 4 o'clock position, middle depth. ??Pathology pending. Of note, there is an additional suspicious mammographic mass located more posteriorly within the lower outer quadrant of the left breast with inclusive measurement 6.4 cm, as discussed above. 2) Successful ultrasound-guided fine needle aspiration biopsy of the morphologically abnormal left axillary lymph node of interest. ??Cytology pending. 3) Successful vacuum-assisted core needle biopsy of the 2 mm group of indeterminate microcalcifications of interest in the lower central right breast utilizing stereotactic guidance. ??Pathology pending. ADDENDUM #1 by Isamar Soriano RN for Dr. Violet Anderson on 07/25/2014 at 5:40 p.m.: Pathology evaluation by Dr. 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 This is a malignant finding and surgical intervention is required. ??The presence of an intraductal papilloma (large/central subtype), with associated calcifications was also noted. Cytology evaluation by Dr. Jane Will of the fine needle aspiration biopsy of the morphologically abnormal LEFT axillary lymph node demonstrated adenocarcinoma. Pathology evaluation by Dr. Ochoa Boo of the tissue cores of the microcalcifications within the lower central right breast demonstrated columnar cell hyperplasia and nodular sclerosing adenosis (with associated calcifications). ??By report, there were no atypical or malignant findings. ??These findings are benign and concordant will the imaging findings. The patient will be notified of the biopsy results and recommendations by the referring physician, Dr. Farzaneh Ramey, who will direct surgical management. Note: If left breast conservation therapy is being considered rather than mastectomy, then biopsy of the 1.2 cm suspicious mammographic mass located more posteriorly within the lower outer quadrant of the left breast at the 4 o'clock position is recommended to evaluate the extent of malignancy. ?? Requested By: Dictated By: ?? SUNNY SIMON, ?? on Jul 21 2014 ??4:20P This document has been electronically signed by: VIOLET ANDERSON M.D. on Jul 21 2014 ??4:50P on Jul ??3 2014 ??5:41P This Addendum has been electronically signed by: VIOLET ANDERSON M.D. on Jul ??3 2014 ??5:57P Procedure Note Provider, MD Tyler - 08/12/2016 VIOLET ANDERSON M.D. FINAL REPORT The radiology attending physician has personally reviewed this study, and has reviewed and/or edited this written report and agrees with it. ACC# Date Time Exam [id number] Jul 21, 2014 15:59:00 [facility] [place] [address] Breast Bx Incl Loc Sono L [id number] Jul 21, 2014 15:54:00 [facility] [place] [address] Breast Bx Incl Loc Stereo R [id number] Jul 21, 2014 16:07:00 [facility] [place] [id number] Bilat Post Op Biopsy Film Technologist(s): Lety Jerez; ; [id number] Jul 21, 2014 15:59:00 [facility] [place] [address] Breast FNA BX with Img Gd L [id number] Jul 21, 2014 15:59:00 [facility] [place] [id number] SonoGd FineNdl Aspiration L Technologist(s): Shanthi Hernandez; ; ACC# Date Time Exam [id number] Jul 21, 2014 15:59:00 [facility] [place] [address] Breast Bx Incl Loc Sono L [id number] Jul 21, 2014 15:54:00 [facility] [place] [address] Breast Bx Incl Loc Stereo R [id number] Jul 21, 2014 16:07:00 [facility] [place] [id number] Bilat Post Op Biopsy Film Technologist(s): Lety Jerez; ; [id number] Jul 21, 2014 15:59:00 [facility] [place] [address] Breast FNA BX with Img Gd L [id number] Jul 21, 2014 15:59:00 [facility] [place] [id number] SonoGd FineNdl Aspiration L Technologist(s): Shanthi Hernandez; ; EXAMINATION: 1. ULTRASOUND-GUIDED CORE BIOPSY LEFT BREAST, TISSUE MARKER CLIP PLACEMENT, AND ULTRASOUND-GUIDED FINE NEEDLE ASPIRATION BIOPSY OF LEFT AXILLARY LYMPH NODE 2. VACUUM-ASSISTED CORE BIOPSY OF THE RIGHT BREAST UTILIZING STEREOTACTIC GUIDANCE, SPECIMEN RADIOGRAPH, TISSUE MARKER CLIP PLACEMENT 3. BILATERAL DIGITAL MAMMOGRAM HISTORY: 59-year-old woman with an abnormal mammogram from another facility. Outside mammograms and a left breast sonogram from [facility] in [place], [place] dated 07/01/2014 and 07/07/2014 demonstrated a suspicious mass measuring approximately 1 cm in the lower outer quadrant of the left breast at the 4 o'clock position and a left axillary lymph node with abnormal cortical thickening. Ultrasound-guided core needle biopsy of the left breast mass and ultrasound-guided fine needle aspiration biopsy of the morphologically abnormal left axillary lymph node are requested to evaluate for malignancy. In addition, a right unilateral diagnostic mammogram performed at [facility] on 07/16/2014 demonstrated a 2 mm group of indeterminate microcalcifications in the central right breast on the craniocaudal view, and this was thought to be located in the upper central right breast. Stereotactic-guided core needle biopsy is requested to evaluate for malignancy. LEFT BREAST AND AXILLA PROCEDURE AND FINDINGS: The risks and potential benefits of the procedure were discussed with the patient and written informed consent was obtained. Attention was first directed to the morphologically abnormal left axillary lymph node of interest. After sterile preparation of the skin, 1% lidocaine was utilized for local anesthesia. Three separate 25-gauge needles were successively advanced into the lymph node of interest from a lateral approach utilizing sonographic guidance and cytologic specimens were aspirated. Hemostasis was achieved. The specimens were submitted for cytologic evaluation. Attention was then directed to the 1 cm hypoechoic mass with irregular margins in the lower outer quadrant of the left breast at the 4 o'clock position that was identified on the breast sonogram from [facility] dated 07/07/2014. After sterile preparation of the skin, 1% [...] were obtained through the lesion. An UltraClip ribbon-shaped tissue marker clip was then placed at the biopsy site. Hemostasis was achieved. A sterile bandage and an ice pack were applied. The tissue cores were submitted to surgical pathology in formalin for histologic analysis. 2. RIGHT BREAST PROCEDURE AND FINDINGS: The risks and potential benefits of the procedure were discussed with the patient and written informed consent was obtained. Today's digital images of the right breast performed on a standard mammography unit as well as on the stereotactic-guided core needle biopsy table demonstrate that the two mm group of indeterminate microcalcifications of interest is located within the lower central right breast at approximately the 6 o'clock position (rather than within the upper central right breast, as was thought at the time of diagnostic imaging evaluation dated 07/16/2014). The patient was then placed in the prone position on the stereotactic table with the breast in caudocranial compression. The area of interest was localized and targeted utilizing digital imaging with stereotaxis. After sterile preparation of the skin, 1% lidocaine was utilized for local anesthesia at the skin puncture site and 2% lidocaine with epinephrine was utilized for deeper local anesthesia/hemostasis about the biopsy site. A small skin incision was made with a #11 scalpel blade. A 9 gauge [employer] vacuum-assisted biopsy needle was then advanced through the skin incision to the level of the calcifications of interest from an inferior approach utilizing stereotactic guidance and a total of 4 tissue cores were obtained. The specimen radiograph demonstrates that the calcifications of interest are included within the tissue cores. A [employer] Ultra coil-shaped tissue marker clip was then placed at the biopsy site. The needle was removed and hemostasis was achieved. A sterile bandage and an ice pack were applied. The patient tolerated the procedure well and there is no evidence of significant immediate complication. The patient was given verbal as well as written post procedural instructions prior to release from the department. The two tissue core fragments with the majority of the calcifications of interest were within a small cassette within the jar of formalin for special attention by the pathologist. All of the tissue cores were submitted to surgical pathology in formalin as one specimen for histologic analysis. A two-view bilateral digital mammogram was obtained post procedure. The ribbon-shaped metallic tissue marker clip is located in the expected position within the biopsied suspicious mass in the lower outer quadrant of the left breast at the 4 o'clock position, middle depth. In addition, there is a 1.2 cm mass with irregular margins located more posteriorly within the lower outer quadrant of the left breast at the 4 o'clock position. The inclusive measurement of both of these suspicious masses is 6.4 cm on today's post-biopsy mediolateral view. The coil-shaped metallic tissue marker clip within the right breast is located 1 to 2 cm inferior to the expected position of the biopsied microcalcifications at the 6 o'clock position. The attending radiologist, Dr. Anderson, was present throughout the entire procedure. Dr. Simon (diagnostic resident inspector) also participated in this examination. IMPRESSION: 1) Successful ultrasound-guided core needle biopsy of the suspicious hypoechoic mass located within the lower outer quadrant of the left breast at the 4 o'clock position, middle depth. Pathology pending. Of note, there is an additional suspicious mammographic mass located more posteriorly within the lower outer quadrant of the left breast with inclusive measurement 6.4 cm, as discussed above. 2) Successful ultrasound-guided fine needle aspiration biopsy of the morphologically abnormal left axillary lymph node of interest. Cytology pending. 3) Successful vacuum-assisted core needle biopsy of the 2 mm group of indeterminate microcalcifications of interest in the lower central right breast utilizing stereotactic guidance. Pathology pending. ADDENDUM #1 by Isamar Soriano RN for Dr. Violet Anderson on 07/25/2014 at 5:40 p.m.: Pathology evaluation by Dr. 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 This is a malignant finding and surgical intervention is required. The presence of an intraductal papilloma (large/central subtype), with associated calcifications was also noted. Cytology evaluation by Dr. aJne Will of the fine needle aspiration biopsy of the morphologically abnormal LEFT axillary lymph node demonstrated adenocarcinoma. Pathology evaluation by Dr. Ochoa Boo of the tissue cores of the microcalcifications within the lower central right breast demonstrated columnar cell hyperplasia and nodular sclerosing adenosis (with associated calcifications). By report, there were no atypical or malignant findings. These findings are benign and concordant will the imaging findings. The patient will be notified of the biopsy results and recommendations by the referring physician, Dr. Farzaneh Ramey, who will direct surgical management. Note: If left breast conservation therapy is being considered rather than mastectomy, then biopsy of the 1.2 cm suspicious mammographic mass located more posteriorly within the lower outer quadrant of the left breast at the 4 o'clock position is recommended to evaluate the extent of malignancy. Requested By: Dictated By: SUNNY SIMON, on Jul 21 2014 4:20P This document has been electronically signed by: VIOLET ANDERSON M.D. on Jul 21 2014 4:50P on Jul 25 2014 5:41P This Addendum has been electronically signed by: IVOLET ANDERSON M.D. on Jul 25 2014 5:57P us Historical Provider MD GARCIA US PROCEDURES Final R esult * Fine Needle Aspiration W Image Guidance (07/21/2014 3:59 PM CDT) Anatomical Region Laterality Modality Body N/A X-Ray Angiograph y 07/21/2014 3:59 PM CDT Narrative 07/25/2014 5:57 PM CDT VIOLET ANDERSON M.D. FINAL REPORT The radiology attending physician has personally reviewed this study, and has reviewed and/or edited this written report and agrees with it. ACC# ??Date Time ??Exam [id number] Jul 21, 2014 15:59:00 [facility] [place] [address] Breast Bx Incl Loc Sono L [id number] Jul 21, 2014 15:54:00 [facility] [place] [address] Breast Bx Incl Loc Stereo R [id number] Jul 21, 2014 16:07:00 [facility] [place] [id number] Bilat Post Op Biopsy Film ?? Technologist(s): Lety Jerez; ; [id number] Jul 21, 2014 15:59:00 [facility] [place] [address] Breast FNA BX with Img Gd L [id number] Jul 21, 2014 15:59:00 [facility] [place] [id number] SonoGd FineNdl Aspiration L ?? Technologist(s): Shanthi Hernandez; ; ACC# ??Date Time ??Exam [id number] Jul 21, 2014 15:59:00 [facility] [place] [address] Breast Bx Incl Loc Sono L [id number] Jul 21, 2014 15:54:00 [facility] [place] [address] Breast Bx Incl Loc Stereo R [id number] Jul 21, 2014 16:07:00 [facility] [place] [id number] Bilat Post Op Biopsy Film ?? Technologist(s): Lety Jerez; ; [id number] Jul 21, 2014 15:59:00 [facility] [place] [address] Breast FNA BX with Img Gd L [id number] Jul 21, 2014 15:59:00 [facility] [place] 32520D SonoGd FineNdl Aspiration L ?? Technologist(s): Shanthi Hernandez; ; EXAMINATION: 1. ULTRASOUND-GUIDED CORE BIOPSY LEFT BREAST, TISSUE MARKER CLIP PLACEMENT, AND ULTRASOUND-GUIDED FINE NEEDLE ASPIRATION BIOPSY OF LEFT AXILLARY LYMPH NODE 2. VACUUM-ASSISTED CORE BIOPSY OF THE RIGHT BREAST UTILIZING STEREOTACTIC GUIDANCE, SPECIMEN RADIOGRAPH, TISSUE MARKER CLIP PLACEMENT 3. BILATERAL DIGITAL MAMMOGRAM HISTORY: 59-year-old woman with an abnormal mammogram from another facility. Outside mammograms and a left breast sonogram from [facility] in [place], [place] dated 07/01/2014 and 07/07/2014 demonstrated a suspicious mass measuring approximately 1 cm in the lower outer quadrant of the left breast at the 4 o'clock position and a left axillary lymph node with abnormal cortical thickening. Ultrasound-guided core needle biopsy of the left breast mass and ultrasound-guided fine needle aspiration biopsy of the morphologically abnormal left axillary lymph node are requested to evaluate for malignancy. In addition, a right unilateral diagnostic mammogram performed at [facility] on 07/16/2014 demonstrated a 2 mm group of indeterminate microcalcifications in the central right breast on the craniocaudal view, and this was thought to be located in the upper central right breast. ??Stereotactic-guided core needle biopsy is requested to evaluate for malignancy. LEFT BREAST AND AXILLA PROCEDURE AND FINDINGS: The risks and potential benefits of the procedure were discussed with the patient and written informed consent was obtained. Attention was first directed to the morphologically abnormal left axillary lymph node of interest. After sterile preparation of the skin, 1% lidocaine was utilized for local anesthesia. Three separate 25-gauge needles were successively advanced into the lymph node of interest from a lateral approach utilizing sonographic guidance and cytologic specimens were aspirated. ??Hemostasis was achieved. ??The specimens were submitted for cytologic evaluation. Attention was then directed to the 1 cm hypoechoic mass with irregular margins in the lower outer quadrant of the left breast at the 4 o'clock position that was identified on the breast sonogram from [facility] dated 07/07/2014. ??After sterile preparation of the skin, 1% [...] were obtained through the lesion. An UltraClip ribbon-shaped tissue marker clip was then placed at the biopsy site. Hemostasis was achieved. A sterile bandage and an ice pack were applied. The tissue cores were submitted to surgical pathology in formalin for histologic analysis. 2. RIGHT BREAST PROCEDURE AND FINDINGS: The risks and potential benefits of the procedure were discussed with the patient and written informed consent was obtained. Today's digital images of the right breast performed on a standard mammography unit as well as on the stereotactic-guided core needle biopsy table demonstrate that the two mm group of indeterminate microcalcifications of interest is located within the lower central right breast at approximately the 6 o'clock position (rather than within the upper central right breast, as was thought at the time of diagnostic imaging evaluation dated 07/16/2014). The patient was then placed in the prone position on the stereotactic table with the breast in caudocranial compression. ??The area of interest was localized and targeted utilizing digital imaging with stereotaxis. After sterile preparation of the skin, 1% lidocaine was utilized for local anesthesia at the skin puncture site and 2% lidocaine with epinephrine was utilized for deeper local anesthesia/hemostasis about the biopsy site. A small skin incision was made with a #11 scalpel blade. ??A 9 gauge [employer] vacuum-assisted biopsy needle was then advanced through the skin incision to the level of the calcifications of interest from an inferior approach utilizing stereotactic guidance and a total of 4 tissue cores were obtained. The specimen radiograph demonstrates that the calcifications of interest are included within the tissue cores. ??A [employer] Ultra coil-shaped tissue marker clip was then placed at the biopsy site. The needle was removed and hemostasis was achieved. A sterile bandage and an ice pack were applied. The patient tolerated the procedure well and there is no evidence of significant immediate complication. The patient was given verbal as well as written post procedural instructions prior to release from the department. The two tissue core fragments with the majority of the calcifications of interest were within a small cassette within the jar of formalin for special attention by the pathologist. All of the tissue cores were submitted to surgical pathology in formalin as one specimen for histologic analysis. A two-view bilateral digital mammogram was obtained post procedure. The ribbon-shaped metallic tissue marker clip is located in the expected position within the biopsied suspicious mass in the lower outer quadrant of the left breast at the 4 o'clock position, middle depth. In addition, there is a 1.2 cm mass with irregular margins located more posteriorly within the lower outer quadrant of the left breast at the 4 o'clock position. The inclusive measurement of both of these suspicious masses is 6.4 cm on today's post-biopsy mediolateral view. The coil-shaped metallic tissue marker clip within the right breast is located 1 to 2 cm inferior to the expected position of the biopsied microcalcifications at the 6 o'clock position. The attending radiologist, Dr. Anderson, was present throughout the entire procedure. Dr. Simon (diagnostic resident inspector) also participated in this examination. ?? IMPRESSION: 1) Successful ultrasound-guided core needle biopsy of the suspicious hypoechoic mass located within the lower outer quadrant of the left breast at the 4 o'clock position, middle depth. ??Pathology pending. Of note, there is an additional suspicious mammographic mass located more posteriorly within the lower outer quadrant of the left breast with inclusive measurement 6.4 cm, as discussed above. 2) Successful ultrasound-guided fine needle aspiration biopsy of the morphologically abnormal left axillary lymph node of interest. ??Cytology pending. 3) Successful vacuum-assisted core needle biopsy of the 2 mm group of indeterminate microcalcifications of interest in the lower central right breast utilizing stereotactic guidance. ??Pathology pending. ADDENDUM #1 by Isamar Soriano RN for Dr. Violet Anderson on 07/25/2014 at 5:40 p.m.: Pathology evaluation by Dr. 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 This is a malignant finding and surgical intervention is required. ??The presence of an intraductal papilloma (large/central subtype), with associated calcifications was also noted. Cytology evaluation by Dr. Jane Will of the fine needle aspiration biopsy of the morphologically abnormal LEFT axillary lymph node demonstrated adenocarcinoma. Pathology evaluation by Dr. Ochoa Boo of the tissue cores of the microcalcifications within the lower central right breast demonstrated columnar cell hyperplasia and nodular sclerosing adenosis (with associated calcifications). ??By report, there were no atypical or malignant findings. ??These findings are benign and concordant will the imaging findings. The patient will be notified of the biopsy results and recommendations by the referring physician, Dr. Farzaneh Ramey, who will direct surgical management. Note: If left breast conservation therapy is being considered rather than mastectomy, then biopsy of the 1.2 cm suspicious mammographic mass located more posteriorly within the lower outer quadrant of the left breast at the 4 o'clock position is recommended to evaluate the extent of malignancy. ?? Requested By: Dictated By: ?? ZACHLEANA CLYDE, ?? on Jul 21 2014 ??4:20P This document has been electronically signed by: VIOLET ADNERSON M.D. on Jul 21 2014 ??4:50P on Jul ??2014 ??5:41P This Addendum has been electronically signed by: VIOLET ANDERSON M.D. on Jul ??2014 ??5:57P [id number] Procedure Note Provider, MD Tyler - 08/12/2016 VIOLET ANDERSON M.D. FINAL REPORT The radiology attending physician has personally reviewed this study, and has reviewed and/or edited this written report and agrees with it. ACC# Date Time Exam [id number] Jul 21, 2014 15:59:00 [facility] [place] [address] Breast Bx Incl Loc Sono L [id number] Jul 21, 2014 15:54:00 [facility] [place] [address] Breast Bx Incl Loc Stereo R [id number] Jul 21, 2014 16:07:00 [facility] [place] [id number] Bilat Post Op Biopsy Film Technologist(s): Lety Jerez; ; [id number] Jul 21, 2014 15:59:00 [facility] [place] [address] Breast FNA BX with Img Gd L [id number] Jul 21, 2014 15:59:00 [facility] [place] [id number] SonoGd FineNdl Aspiration L Technologist(s): Shanthi Hernandez; ; ACC# Date Time Exam [id number] Jul 21, 2014 15:59:00 [facility] [place] [address] Breast Bx Incl Loc Sono L [id number] Jul 21, 2014 15:54:00 [facility] [place] [address] Breast Bx Incl Loc Stereo R [id number] Jul 21, 2014 16:07:00 [facility] [place] [id number] Bilat Post Op Biopsy Film Technologist(s): Lety Jerez; ; [id number] Jul 21, 2014 15:59:00 [facility] [place] [address] Breast FNA BX with Img Gd L [id number] Jul 21, 2014 15:59:00 [facility] [place] [id number] SonoGd FineNdl Aspiration L Technologist(s): Shanthi Hernandez; ; EXAMINATION: 1. ULTRASOUND-GUIDED CORE BIOPSY LEFT BREAST, TISSUE MARKER CLIP PLACEMENT, AND ULTRASOUND-GUIDED FINE NEEDLE ASPIRATION BIOPSY OF LEFT AXILLARY LYMPH NODE 2. VACUUM-ASSISTED CORE BIOPSY OF THE RIGHT BREAST UTILIZING STEREOTACTIC GUIDANCE, SPECIMEN RADIOGRAPH, TISSUE MARKER CLIP PLACEMENT 3. BILATERAL DIGITAL MAMMOGRAM HISTORY: 59-year-old woman with an abnormal mammogram from another facility. Outside mammograms and a left breast sonogram from [facility] in [place], [place] dated 07/01/2014 and 07/07/2014 demonstrated a suspicious mass measuring approximately 1 cm in the lower outer quadrant of the left breast at the 4 o'clock position and a left axillary lymph node with abnormal cortical thickening. Ultrasound-guided core needle biopsy of the left breast mass and ultrasound-guided fine needle aspiration biopsy of the morphologically abnormal left axillary lymph node are requested to evaluate for malignancy. In addition, a right unilateral diagnostic mammogram performed at [facility] on 07/16/2014 demonstrated a 2 mm group of indeterminate microcalcifications in the central right breast on the craniocaudal view, and this was thought to be located in the upper central right breast. Stereotactic-guided core needle biopsy is requested to evaluate for malignancy. LEFT BREAST AND AXILLA PROCEDURE AND FINDINGS: The risks and potential benefits of the procedure were discussed with the patient and written informed consent was obtained. Attention was first directed to the morphologically abnormal left axillary lymph node of interest. After sterile preparation of the skin, 1% lidocaine was utilized for local anesthesia. Three separate 25-gauge needles were successively advanced into the lymph node of interest from a lateral approach utilizing sonographic guidance and cytologic specimens were aspirated. Hemostasis was achieved. The specimens were submitted for cytologic evaluation. Attention was then directed to the 1 cm hypoechoic mass with irregular margins in the lower outer quadrant of the left breast at the 4 o'clock position that was identified on the breast sonogram from [facility] dated 07/07/2014. After sterile preparation of the skin, 1% [...] were obtained through the lesion. An UltraClip ribbon-shaped tissue marker clip was then placed at the biopsy site. Hemostasis was achieved. A sterile bandage and an ice pack were applied. The tissue cores were submitted to surgical pathology in formalin for histologic analysis. 2. RIGHT BREAST PROCEDURE AND FINDINGS: The risks and potential benefits of the procedure were discussed with the patient and written informed consent was obtained. Today's digital images of the right breast performed on a standard mammography unit as well as on the stereotactic-guided core needle biopsy table demonstrate that the two mm group of indeterminate microcalcifications of interest is located within the lower central right breast at approximately the 6 o'clock position (rather than within the upper central right breast, as was thought at the time of diagnostic imaging evaluation dated 07/16/2014). The patient was then placed in the prone position on the stereotactic table with the breast in caudocranial compression. The area of interest was localized and targeted utilizing digital imaging with stereotaxis. After sterile preparation of the skin, 1% lidocaine was utilized for local anesthesia at the skin puncture site and 2% lidocaine with epinephrine was utilized for deeper local anesthesia/hemostasis about the biopsy site. A small skin incision was made with a #11 scalpel blade. A 9 gauge Suros vacuum-assisted biopsy needle was then advanced through the skin incision to the level of the calcifications of interest from an inferior approach utilizing stereotactic guidance and a total of 4 tissue cores were obtained. The specimen radiograph demonstrates that the calcifications of interest are included within the tissue cores. A SenoMark Ultra coil-shaped tissue marker clip was then placed at the biopsy site. The needle was removed and hemostasis was achieved. A sterile bandage and an ice pack were applied. The patient tolerated the procedure well and there is no evidence of significant immediate complication. The patient was given verbal as well as written post procedural instructions prior to release from the department. The two tissue core fragments with the majority of the calcifications of interest were within a small cassette within the jar of formalin for special attention by the pathologist. All of the tissue cores were submitted to surgical pathology in formalin as one specimen for histologic analysis. A two-view bilateral digital mammogram was obtained post procedure. The ribbon-shaped metallic tissue marker clip is located in the expected position within the biopsied suspicious mass in the lower outer quadrant of the left breast at the 4 o'clock position, middle depth. In addition, there is a 1.2 cm mass with irregular margins located more posteriorly within the lower outer quadrant of the left breast at the 4 o'clock position. The inclusive measurement of both of these suspicious masses is 6.4 cm on today's post-biopsy mediolateral view. The coil-shaped metallic tissue marker clip within the right breast is located 1 to 2 cm inferior to the expected position of the biopsied microcalcifications at the 6 o'clock position. The attending radiologist, Dr. Anderson, was present throughout the entire procedure. Dr. Simon (diagnostic resident inspector) also participated in this examination. IMPRESSION: 1) Successful ultrasound-guided core needle biopsy of the suspicious hypoechoic mass located within the lower outer quadrant of the left breast at the 4 o'clock position, middle depth. Pathology pending. Of note, there is an additional suspicious mammographic mass located more posteriorly within the lower outer quadrant of the left breast with inclusive measurement 6.4 cm, as discussed above. 2) Successful ultrasound-guided fine needle aspiration biopsy of the morphologically abnormal left axillary lymph node of interest. Cytology pending. 3) Successful vacuum-assisted core needle biopsy of the 2 mm group of indeterminate microcalcifications of interest in the lower central right breast utilizing stereotactic guidance. Pathology pending. ADDENDUM #1 by Isamar Soriano RN for Dr. Violet Anderson on 07/25/2014 at 5:40 p.m.: Pathology evaluation by Dr. 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 This is a malignant finding and surgical intervention is required. The presence of an intraductal papilloma (large/central subtype), with associated calcifications was also noted. Cytology evaluation by Dr. Jane iWll of the fine needle aspiration biopsy of the morphologically abnormal LEFT axillary lymph node demonstrated adenocarcinoma. Pathology evaluation by Dr. Ochoa Boo of the tissue cores of the microcalcifications within the lower central right breast demonstrated columnar cell hyperplasia and nodular sclerosing adenosis (with associated calcifications). By report, there were no atypical or malignant findings. These findings are benign and concordant will the imaging findings. The patient will be notified of the biopsy results and recommendations by the referring physician, Dr. Farzaneh Ramey, who will direct surgical management. Note: If left breast conservation therapy is being considered rather than mastectomy, then biopsy of the 1.2 cm suspicious mammographic mass located more posteriorly within the lower outer quadrant of the left breast at the 4 o'clock position is recommended to evaluate the extent of malignancy. Requested By: Dictated By: SUNNY SIMON on Jul 21 2014 4:20P This document has been electronically signed by: VIOLET ANDERSON M.D. on Jul 21 2014 4:50P on Jul 25 2014 5:41P This Addendum has been electronically signed by: VIOLET ANDERSON M.D. on Jul 25 2014 5:57P [id number] us Historical Provider MD GARCIA IR PROCEDURES Final R esult * US Guided Localization Breast (07/21/2014 3:59 PM CDT) Anatomical Region Laterality Modality Breast N/A Ultrasound 07/21/2014 3:59 PM CDT Narrative 07/25/2014 5:57 PM CDT VIOLET ANDERSON M.D. FINAL REPORT The radiology attending physician has personally reviewed this study, and has reviewed and/or edited this written report and agrees with it. ACC# ??Date Time ??Exam [id number] Jul 21, 2014 15:59:00 [facility] [place] [address] Breast Bx Incl Loc Sono L [id number] Jul 21, 2014 15:54:00 [facility] [place] [address] Breast Bx Incl Loc Stereo R [id number] Jul 21, 2014 16:07:00 [facility] [place] [id number] Bilat Post Op Biopsy Film ?? Technologist(s): Lety Jerez; ; [id number] Jul 21, 2014 15:59:00 [facility] [place] [address] Breast FNA BX with Img Gd L [id number] Jul 21, 2014 15:59:00 [facility] [place] 17288P SonoGd FineNdl Aspiration L ?? Technologist(s): Shanthi Hernandez; ; ACC# ??Date Time ??Exam [id number] Jul 21, 2014 15:59:00 [facility] [place] [address] Breast Bx Incl Loc Sono L [id number] Jul 21, 2014 15:54:00 [facility] [place] [address] Breast Bx Incl Loc Stereo R [id number] Jul 21, 2014 16:07:00 [facility] [place] [id number] Bilat Post Op Biopsy Film ?? Technologist(s): Lety Jerez; ; [id number] Jul 21, 2014 15:59:00 [facility] [place] [address] Breast FNA BX with Img Gd L [id number] Jul 21, 2014 15:59:00 [facility] [place] 61854M SonoGd FineNdl Aspiration L ?? Technologist(s): Shanthi Hernandez; ; EXAMINATION: 1. ULTRASOUND-GUIDED CORE BIOPSY LEFT BREAST, TISSUE MARKER CLIP PLACEMENT, AND ULTRASOUND-GUIDED FINE NEEDLE ASPIRATION BIOPSY OF LEFT AXILLARY LYMPH NODE 2. VACUUM-ASSISTED CORE BIOPSY OF THE RIGHT BREAST UTILIZING STEREOTACTIC GUIDANCE, SPECIMEN RADIOGRAPH, TISSUE MARKER CLIP PLACEMENT 3. BILATERAL DIGITAL MAMMOGRAM HISTORY: 59-year-old woman with an abnormal mammogram from another facility. Outside mammograms and a left breast sonogram from [facility] in [place], [place] dated 07/01/2014 and 07/07/2014 demonstrated a suspicious mass measuring approximately 1 cm in the lower outer quadrant of the left breast at the 4 o'clock position and a left axillary lymph node with abnormal cortical thickening. Ultrasound-guided core needle biopsy of the left breast mass and ultrasound-guided fine needle aspiration biopsy of the morphologically abnormal left axillary lymph node are requested to evaluate for malignancy. In addition, a right unilateral diagnostic mammogram performed at [facility] on 07/16/2014 demonstrated a 2 mm group of indeterminate microcalcifications in the central right breast on the craniocaudal view, and this was thought to be located in the upper central right breast. ??Stereotactic-guided core needle biopsy is requested to evaluate for malignancy. LEFT BREAST AND AXILLA PROCEDURE AND FINDINGS: The risks and potential benefits of the procedure were discussed with the patient and written informed consent was obtained. Attention was first directed to the morphologically abnormal left axillary lymph node of interest. After sterile preparation of the skin, 1% lidocaine was utilized for local anesthesia. Three separate 25-gauge needles were successively advanced into the lymph node of interest from a lateral approach utilizing sonographic guidance and cytologic specimens were aspirated. ??Hemostasis was achieved. ??The specimens were submitted for cytologic evaluation. Attention was then directed to the 1 cm hypoechoic mass with irregular margins in the lower outer quadrant of the left breast at the 4 o'clock position that was identified on the breast sonogram from [facility] dated 07/07/2014. ??After sterile preparation of the skin, 1% [...] were obtained through the lesion. An UltraClip ribbon-shaped tissue marker clip was then placed at the biopsy site. Hemostasis was achieved. A sterile bandage and an ice pack were applied. The tissue cores were submitted to surgical pathology in formalin for histologic analysis. 2. RIGHT BREAST PROCEDURE AND FINDINGS: The risks and potential benefits of the procedure were discussed with the patient and written informed consent was obtained. Today's digital images of the right breast performed on a standard mammography unit as well as on the stereotactic-guided core needle biopsy table demonstrate that the two mm group of indeterminate microcalcifications of interest is located within the lower central right breast at approximately the 6 o'clock position (rather than within the upper central right breast, as was thought at the time of diagnostic imaging evaluation dated 07/16/2014). The patient was then placed in the prone position on the stereotactic table with the breast in caudocranial compression. ??The area of interest was localized and targeted utilizing digital imaging with stereotaxis. After sterile preparation of the skin, 1% lidocaine was utilized for local anesthesia at the skin puncture site and 2% lidocaine with epinephrine was utilized for deeper local anesthesia/hemostasis about the biopsy site. A small skin incision was made with a #11 scalpel blade. ??A 9 gauge [employer] vacuum-assisted biopsy needle was then advanced through the skin incision to the level of the calcifications of interest from an inferior approach utilizing stereotactic guidance and a total of 4 tissue cores were obtained. The specimen radiograph demonstrates that the calcifications of interest are included within the tissue cores. ??A SenoMark Ultra coil-shaped tissue marker clip was then placed at the biopsy site. The needle was removed and hemostasis was achieved. A sterile bandage and an ice pack were applied. The patient tolerated the procedure well and there is no evidence of significant immediate complication. The patient was given verbal as well as written post procedural instructions prior to release from the department. The two tissue core fragments with the majority of the calcifications of interest were within a small cassette within the jar of formalin for special attention by the pathologist. All of the tissue cores were submitted to surgical pathology in formalin as one specimen for histologic analysis. A two-view bilateral digital mammogram was obtained post procedure. The ribbon-shaped metallic tissue marker clip is located in the expected position within the biopsied suspicious mass in the lower outer quadrant of the left breast at the 4 o'clock position, middle depth. In addition, there is a 1.2 cm mass with irregular margins located more posteriorly within the lower outer quadrant of the left breast at the 4 o'clock position. The inclusive measurement of both of these suspicious masses is 6.4 cm on today's post-biopsy mediolateral view. The coil-shaped metallic tissue marker clip within the right breast is located 1 to 2 cm inferior to the expected position of the biopsied microcalcifications at the 6 o'clock position. The attending radiologist, Dr. Anderson, was present throughout the entire procedure. Dr. Simon (diagnostic resident inspector) also participated in this examination. ?? IMPRESSION: 1) Successful ultrasound-guided core needle biopsy of the suspicious hypoechoic mass located within the lower outer quadrant of the left breast at the 4 o'clock position, middle depth. ??Pathology pending. Of note, there is an additional suspicious mammographic mass located more posteriorly within the lower outer quadrant of the left breast with inclusive measurement 6.4 cm, as discussed above. 2) Successful ultrasound-guided fine needle aspiration biopsy of the morphologically abnormal left axillary lymph node of interest. ??Cytology pending. 3) Successful vacuum-assisted core needle biopsy of the 2 mm group of indeterminate microcalcifications of interest in the lower central right breast utilizing stereotactic guidance. ??Pathology pending. ADDENDUM #1 by Isamar Soriano RN for Dr. Violet Anderson on 07/25/2014 at 5:40 p.m.: Pathology evaluation by Dr. 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 This is a malignant finding and surgical intervention is required. ??The presence of an intraductal papilloma (large/central subtype), with associated calcifications was also noted. Cytology evaluation by Dr. Jane Will of the fine needle aspiration biopsy of the morphologically abnormal LEFT axillary lymph node demonstrated adenocarcinoma. Pathology evaluation by Dr. Ochoa Boo of the tissue cores of the microcalcifications within the lower central right breast demonstrated columnar cell hyperplasia and nodular sclerosing adenosis (with associated calcifications). ??By report, there were no atypical or malignant findings. ??These findings are benign and concordant will the imaging findings. The patient will be notified of the biopsy results and recommendations by the referring physician, Dr. Farzaneh Ramey, who will direct surgical management. Note: If left breast conservation therapy is being considered rather than mastectomy, then biopsy of the 1.2 cm suspicious mammographic mass located more posteriorly within the lower outer quadrant of the left breast at the 4 o'clock position is recommended to evaluate the extent of malignancy. ?? Requested By: Dictated By: ?? SUNNY SIMON, ?? on Jul 21 2014 ??4:20P This document has been electronically signed by: VIOLET ANDERSON M.D. on Jul 21 2014 ??4:50P on Jul ??2014 ??5:41P This Addendum has been electronically signed by: VIOLET ANDERSON M.D. on Jul ??2014 ??5:57P Procedure Note Provider, MD Tyler - 08/12/2016 VIOLET ANDERSON M.D. FINAL REPORT The radiology attending physician has personally reviewed this study, and has reviewed and/or edited this written report and agrees with it. ACC# Date Time Exam [id number] Jul 21, 2014 15:59:00 [facility] [place] [address] Breast Bx Incl Loc Sono L [id number] Jul 21, 2014 15:54:00 [facility] [place] [address] Breast Bx Incl Loc Stereo R [id number] Jul 21, 2014 16:07:00 [facility] [place] [id number] Bilat Post Op Biopsy Film Technologist(s): Lety Jerez; ; [id number] Jul 21, 2014 15:59:00 [facility] [place] [address] Breast FNA BX with Img Gd L [id number] Jul 21, 2014 15:59:00 [facility] [place] [id number] SonoGd FineNdl Aspiration L Technologist(s): Shanthi Hernandez; ; ACC# Date Time Exam [id number] Jul 21, 2014 15:59:00 [facility] [place] [address] Breast Bx Incl Loc Sono L [id number] Jul 21, 2014 15:54:00 [facility] [place] [address]78 Breast Bx Incl Loc Stereo R [id number] Jul 21, 2014 16:07:00 [facility] [place] 97524X Bilat Post Op Biopsy Film Technologist(s): Lety Jerez; ; [id number] Jul 21, 2014 15:59:00 [facility] [place] [address] Breast FNA BX with Img Gd L [id number] Jul 21, 2014 15:59:00 [facility] [place] 65747R SonoGd FineNdl Aspiration L Technologist(s): Shanthi Hernandez; ; EXAMINATION: 1. ULTRASOUND-GUIDED CORE BIOPSY LEFT BREAST, TISSUE MARKER CLIP PLACEMENT, AND ULTRASOUND-GUIDED FINE NEEDLE ASPIRATION BIOPSY OF LEFT AXILLARY LYMPH NODE 2. VACUUM-ASSISTED CORE BIOPSY OF THE RIGHT BREAST UTILIZING STEREOTACTIC GUIDANCE, SPECIMEN RADIOGRAPH, TISSUE MARKER CLIP PLACEMENT 3. BILATERAL DIGITAL MAMMOGRAM HISTORY: 59-year-old woman with an abnormal mammogram from another facility. Outside mammograms and a left breast sonogram from [facility] in [place], [place] dated 07/01/2014 and 07/07/2014 demonstrated a suspicious mass measuring approximately 1 cm in the lower outer quadrant of the left breast at the 4 o'clock position and a left axillary lymph node with abnormal cortical thickening. Ultrasound-guided core needle biopsy of the left breast mass and ultrasound-guided fine needle aspiration biopsy of the morphologically abnormal left axillary lymph node are requested to evaluate for malignancy. In addition, a right unilateral diagnostic mammogram performed at [facility] on 07/16/2014 demonstrated a 2 mm group of indeterminate microcalcifications in the central right breast on the craniocaudal view, and this was thought to be located in the upper central right breast. Stereotactic-guided core needle biopsy is requested to evaluate for malignancy. LEFT BREAST AND AXILLA PROCEDURE AND FINDINGS: The risks and potential benefits of the procedure were discussed with the patient and written informed consent was obtained. Attention was first directed to the morphologically abnormal left axillary lymph node of interest. After sterile preparation of the skin, 1% lidocaine was utilized for local anesthesia. Three separate 25-gauge needles were successively advanced into the lymph node of interest from a lateral approach utilizing sonographic guidance and cytologic specimens were aspirated. Hemostasis was achieved. The specimens were submitted for cytologic evaluation. Attention was then directed to the 1 cm hypoechoic mass with irregular margins in the lower outer quadrant of the left breast at the 4 o'clock position that was identified [facility] the [facility] [facility] After sterile preparation of the skin, 1% [...] were obtained through the lesion. An UltraClip ribbon-shaped tissue marker clip was then placed at the biopsy site. Hemostasis was achieved. A sterile bandage and an ice pack were applied. The tissue cores were submitted to surgical pathology in formalin for histologic analysis. 2. RIGHT BREAST PROCEDURE AND FINDINGS: The risks and potential benefits of the procedure were discussed with the patient and written informed consent was obtained. Today's digital images of the right breast performed on a standard mammography unit as well as on the stereotactic-guided core needle biopsy table demonstrate that the two mm group of indeterminate microcalcifications of interest is located within the lower central right breast at approximately the 6 o'clock position (rather than within the upper central right breast, as was thought at the time of diagnostic imaging evaluation dated 07/16/2014). The patient was then placed in the prone position on the stereotactic table with the breast in caudocranial compression. The area of interest was localized and targeted utilizing digital imaging with stereotaxis. After sterile preparation of the skin, 1% lidocaine was utilized for local anesthesia at the skin puncture site and 2% lidocaine with epinephrine was utilized for deeper local anesthesia/hemostasis about the biopsy site. A small skin incision was made with a #11 scalpel blade. A 9 gauge [employer] vacuum-assisted biopsy needle was then advanced through the skin incision to the level of the calcifications of interest from an inferior approach utilizing stereotactic guidance and a total of 4 tissue cores were obtained. The specimen radiograph demonstrates that the calcifications of interest are included within the tissue cores. A [employer] Ultra coil-shaped tissue marker clip was then placed at the biopsy site. The needle was removed and hemostasis was achieved. A sterile bandage and an ice pack were applied. The patient tolerated the procedure well and there is no evidence of significant immediate complication. The patient was given verbal as well as written post procedural instructions prior to release from the department. The two tissue core fragments with the majority of the calcifications of interest were within a small cassette within the jar of formalin for special attention by the pathologist. All of the tissue cores were submitted to surgical pathology in formalin as one specimen for histologic analysis. A two-view bilateral digital mammogram was obtained post procedure. The ribbon-shaped metallic tissue marker clip is located in the expected position within the biopsied suspicious mass in the lower outer quadrant of the left breast at the 4 o'clock position, middle depth. In addition, there is a 1.2 cm mass with irregular margins located more posteriorly within the lower outer quadrant of the left breast at the 4 o'clock position. The inclusive measurement of both of these suspicious masses is 6.4 cm on today's post-biopsy mediolateral view. The coil-shaped metallic tissue marker clip within the right breast is located 1 to 2 cm inferior to the expected position of the biopsied microcalcifications at the 6 o'clock position. The attending radiologist, Dr. Anderson, was present throughout the entire procedure. Dr. Simon (diagnostic resident inspector) also participated in this examination. IMPRESSION: 1) Successful ultrasound-guided core needle biopsy of the suspicious hypoechoic mass located within the lower outer quadrant of the left breast at the 4 o'clock position, middle depth. Pathology pending. Of note, there is an additional suspicious mammographic mass located more posteriorly within the lower outer quadrant of the left breast with inclusive measurement 6.4 cm, as discussed above. 2) Successful ultrasound-guided fine needle aspiration biopsy of the morphologically abnormal left axillary lymph node of interest. Cytology pending. 3) Successful vacuum-assisted core needle biopsy of the 2 mm group of indeterminate microcalcifications of interest in the lower central right breast utilizing stereotactic guidance. Pathology pending. ADDENDUM #1 by Isamar Soriano RN for Dr. Violet Anderson on 07/25/2014 at 5:40 p.m.: Pathology evaluation by Dr. 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 This is a malignant finding and surgical intervention is required. The presence of an intraductal papilloma (large/central subtype), with associated calcifications was also noted. Cytology evaluation by Dr. Jane Will of the fine needle aspiration biopsy of the morphologically abnormal LEFT axillary lymph node demonstrated adenocarcinoma. Pathology evaluation by Dr. Ochoa Boo of the tissue cores of the microcalcifications within the lower central right breast demonstrated columnar cell hyperplasia and nodular sclerosing adenosis (with associated calcifications). By report, there were no atypical or malignant findings. These findings are benign and concordant will the imaging findings. The patient will be notified of the biopsy results and recommendations by the referring physician, Dr. Farzaneh Ramey, who will direct surgical management. Note: If left breast conservation therapy is being considered rather than mastectomy, then biopsy of the 1.2 cm suspicious mammographic mass located more posteriorly within the lower outer quadrant of the left breast at the 4 o'clock position is recommended to evaluate the extent of malignancy. Requested By: Dictated By: SUNNY SIMON on Jul 21 2014 4:20P This document has been electronically signed by: VIOLET ANDERSON M.D. on Jul 21 2014 4:50P on Jul 25 2014 5:41P This Addendum has been electronically signed by: VIOLET ANDERSON M.D. on Jul 25 2014 5:57P us Historical Provider MD GARCIA US PROCEDURES Final R esult * Steriotactic Breast Biopsy (07/21/2014 3:54 PM CDT) Anatomical Region Laterality Modality Breast N/A Mammography 07/21/2014 3:54 PM CDT Narrative 07/25/2014 5:57 PM CDT VIOLET ANDERSON M.D. FINAL REPORT The radiology attending physician has personally reviewed this study, and has reviewed and/or edited this written report and agrees with it. ACC# ??Date Time ??Exam [id number] Jul 21, 2014 15:59:00 [facility] [place] [address] Breast Bx Incl Loc Sono L [id number] Jul 21, 2014 15:54:00 [facility] [place] [address] Breast Bx Incl Loc Stereo R [id number] Jul 21, 2014 16:07:00 [facility] [place] [id number] Bilat Post Op Biopsy Film ?? Technologist(s): Lety Jerez; ; [id number] Jul 21, 2014 15:59:00 [facility] [place] [address] Breast FNA BX with Img Gd L [id number] Jul 21, 2014 15:59:00 [facility] [place] [id number] SonoGd FineNdl Aspiration L ?? Technologist(s): Shanthi Hernandez; ; ACC# ??Date Time ??Exam [id number] Jul 21, 2014 15:59:00 [facility] [place] [address] Breast Bx Incl Loc Sono L [id number] Jul 21, 2014 15:54:00 [facility] [place] [address] Breast Bx Incl Loc Stereo R [id number] Jul 21, 2014 16:07:00 [facility] [place] [id number] Bilat Post Op Biopsy Film ?? Technologist(s): Lety Jerez; ; [id number] Jul 21, 2014 15:59:00 [facility] [place] [address] Breast FNA BX with Img Gd L [id number] Jul 21, 2014 15:59:00 [facility] [place] [id number] SonoGd FineNdl Aspiration L ?? Technologist(s): Shanthi Hernandez; ; EXAMINATION: 1. ULTRASOUND-GUIDED CORE BIOPSY LEFT BREAST, TISSUE MARKER CLIP PLACEMENT, AND ULTRASOUND-GUIDED FINE NEEDLE ASPIRATION BIOPSY OF LEFT AXILLARY LYMPH NODE 2. VACUUM-ASSISTED CORE BIOPSY OF THE RIGHT BREAST UTILIZING STEREOTACTIC GUIDANCE, SPECIMEN RADIOGRAPH, TISSUE MARKER CLIP PLACEMENT 3. BILATERAL DIGITAL MAMMOGRAM HISTORY: 59-year-old woman with an abnormal mammogram from another facility. Outside mammograms and a left breast sonogram from [facility] in [place], [place] dated 07/01/2014 and 07/07/2014 demonstrated a suspicious mass measuring approximately 1 cm in the lower outer quadrant of the left breast at the 4 o'clock position and a left axillary lymph node with abnormal cortical thickening. Ultrasound-guided core needle biopsy of the left breast mass and ultrasound-guided fine needle aspiration biopsy of the morphologically abnormal left axillary lymph node are requested to evaluate for malignancy. In addition, a right unilateral diagnostic mammogram performed at [facility] on 07/16/2014 demonstrated a 2 mm group of indeterminate microcalcifications in the central right breast on the craniocaudal view, and this was thought to be located in the upper central right breast. ??Stereotactic-guided core needle biopsy is requested to evaluate for malignancy. LEFT BREAST AND AXILLA PROCEDURE AND FINDINGS: The risks and potential benefits of the procedure were discussed with the patient and written informed consent was obtained. Attention was first directed to the morphologically abnormal left axillary lymph node of interest. After sterile preparation of the skin, 1% lidocaine was utilized for local anesthesia. Three separate 25-gauge needles were successively advanced into the lymph node of interest from a lateral approach utilizing sonographic guidance and cytologic specimens were aspirated. ??Hemostasis was achieved. ??The specimens were submitted for cytologic evaluation. Attention was then directed to the 1 cm hypoechoic mass with irregular margins in the lower outer quadrant of the left breast at the 4 o'clock position that was identified on the breast sonogram from [facility] dated 07/07/2014. ??After sterile preparation of the skin, 1% [...] were obtained through the lesion. An UltraClip ribbon-shaped tissue marker clip was then placed at the biopsy site. Hemostasis was achieved. A sterile bandage and an ice pack were applied. The tissue cores were submitted to surgical pathology in formalin for histologic analysis. 2. RIGHT BREAST PROCEDURE AND FINDINGS: The risks and potential benefits of the procedure were discussed with the patient and written informed consent was obtained. Today's digital images of the right breast performed on a standard mammography unit as well as on the stereotactic-guided core needle biopsy table demonstrate that the two mm group of indeterminate microcalcifications of interest is located within the lower central right breast at approximately the 6 o'clock position (rather than within the upper central right breast, as was thought at the time of diagnostic imaging evaluation dated 07/16/2014). The patient was then placed in the prone position on the stereotactic table with the breast in caudocranial compression. ??The area of interest was localized and targeted utilizing digital imaging with stereotaxis. After sterile preparation of the skin, 1% lidocaine was utilized for local anesthesia at the skin puncture site and 2% lidocaine with epinephrine was utilized for deeper local anesthesia/hemostasis about the biopsy site. A small skin incision was made with a #11 scalpel blade. ??A 9 gauge [employer] vacuum-assisted biopsy needle was then advanced through the skin incision to the level of the calcifications of interest from an inferior approach utilizing stereotactic guidance and a total of 4 tissue cores were obtained. The specimen radiograph demonstrates that the calcifications of interest are included within the tissue cores. ??A [employer] Ultra coil-shaped tissue marker clip was then placed at the biopsy site. The needle was removed and hemostasis was achieved. A sterile bandage and an ice pack were applied. The patient tolerated the procedure well and there is no evidence of significant immediate complication. The patient was given verbal as well as written post procedural instructions prior to release from the department. The two tissue core fragments with the majority of the calcifications of interest were within a small cassette within the jar of formalin for special attention by the pathologist. All of the tissue cores were submitted to surgical pathology in formalin as one specimen for histologic analysis. A two-view bilateral digital mammogram was obtained post procedure. The ribbon-shaped metallic tissue marker clip is located in the expected position within the biopsied suspicious mass in the lower outer quadrant of the left breast at the 4 o'clock position, middle depth. In addition, there is a 1.2 cm mass with irregular margins located more posteriorly within the lower outer quadrant of the left breast at the 4 o'clock position. The inclusive measurement of both of these suspicious masses is 6.4 cm on today's post-biopsy mediolateral view. The coil-shaped metallic tissue marker clip within the right breast is located 1 to 2 cm inferior to the expected position of the biopsied microcalcifications at the 6 o'clock position. The attending radiologist, Dr. Anderson, was present throughout the entire procedure. Dr. Simon (diagnostic resident inspector) also participated in this examination. ?? IMPRESSION: 1) Successful ultrasound-guided core needle biopsy of the suspicious hypoechoic mass located within the lower outer quadrant of the left breast at the 4 o'clock position, middle depth. ??Pathology pending. Of note, there is an additional suspicious mammographic mass located more posteriorly within the lower outer quadrant of the left breast with inclusive measurement 6.4 cm, as discussed above. 2) Successful ultrasound-guided fine needle aspiration biopsy of the morphologically abnormal left axillary lymph node of interest. ??Cytology pending. 3) Successful vacuum-assisted core needle biopsy of the 2 mm group of indeterminate microcalcifications of interest in the lower central right breast utilizing stereotactic guidance. ??Pathology pending. ADDENDUM #1 by Isamar Soriano RN for Dr. Violet Anderson on 07/25/2014 at 5:40 p.m.: Pathology evaluation by Dr. 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 This is a malignant finding and surgical intervention is required. ??The presence of an intraductal papilloma (large/central subtype), with associated calcifications was also noted. Cytology evaluation by Dr. Jane Will of the fine needle aspiration biopsy of the morphologically abnormal LEFT axillary lymph node demonstrated adenocarcinoma. Pathology evaluation by Dr. Ochoa Boo of the tissue cores of the microcalcifications within the lower central right breast demonstrated columnar cell hyperplasia and nodular sclerosing adenosis (with associated calcifications). ??By report, there were no atypical or malignant findings. ??These findings are benign and concordant will the imaging findings. The patient will be notified of the biopsy results and recommendations by the referring physician, Dr. Farzaneh Ramey, who will direct surgical management. Note: If left breast conservation therapy is being considered rather than mastectomy, then biopsy of the 1.2 cm suspicious mammographic mass located more posteriorly within the lower outer quadrant of the left breast at the 4 o'clock position is recommended to evaluate the extent of malignancy. ?? Requested By: Dictated By: ?? SUNNY SIMON, ?? on Jul 21 2014 ??4:20P This document has been electronically signed by: VIOLET ANDERSON M.D. on Jul 21 2014 ??4:50P on Jul ??3 2014 ??5:41P This Addendum has been electronically signed by: VIOLET ANDERSON M.D. on Jul ??2014 ??5:57P [id number] Procedure Note Provider, MD Tyler - 08/12/2016 VIOLET ANDERSON M.D. FINAL REPORT The radiology attending physician has personally reviewed this study, and has reviewed and/or edited this written report and agrees with it. ACC# Date Time Exam [id number] Jul 21, 2014 15:59:00 [facility] [place] [address] Breast Bx Incl Loc Sono L [id number] Jul 21, 2014 15:54:00 [facility] [place] [address] Breast Bx Incl Loc Stereo R [id number] Jul 21, 2014 16:07:00 [facility] [place] [id number] Bilat Post Op Biopsy Film Technologist(s): Lety Jerez; ; [id number] Jul 21, 2014 15:59:00 [facility] [place] [address] Breast FNA BX with Img Gd L [id number] Jul 21, 2014 15:59:00 [facility] [place] [id number] SonoGd FineNdl Aspiration L Technologist(s): Shanthi Hernandez; ; ACC# Date Time Exam [id number] Jul 21, 2014 15:59:00 [facility] [place] [address] Breast Bx Incl Loc Sono L [id number] Jul 21, 2014 15:54:00 [facility] [place] [address] Breast Bx Incl Loc Stereo R [id number] Jul 21, 2014 16:07:00 [facility] [place] [id number] Bilat Post Op Biopsy Film Technologist(s): Lety Jerez; ; [id number] Jul 21, 2014 15:59:00 [facility] [place] [address] Breast FNA BX with Img Gd L [id number] Jul 21, 2014 15:59:00 [facility] [place] [id number] SonoGd FineNdl Aspiration L Technologist(s): Shanthi Hernandez; ; EXAMINATION: 1. ULTRASOUND-GUIDED CORE BIOPSY LEFT BREAST, TISSUE MARKER CLIP PLACEMENT, AND ULTRASOUND-GUIDED FINE NEEDLE ASPIRATION BIOPSY OF LEFT AXILLARY LYMPH NODE 2. VACUUM-ASSISTED CORE BIOPSY OF THE RIGHT BREAST UTILIZING STEREOTACTIC GUIDANCE, SPECIMEN RADIOGRAPH, TISSUE MARKER CLIP PLACEMENT 3. BILATERAL DIGITAL MAMMOGRAM HISTORY: 59-year-old woman with an abnormal mammogram from another facility. Outside mammograms and a left breast sonogram from [facility] in [place], [place] dated 07/01/2014 and 07/07/2014 demonstrated a suspicious mass measuring approximately 1 cm in the lower outer quadrant of the left breast at the 4 o'clock position and a left axillary lymph node with abnormal cortical thickening. Ultrasound-guided core needle biopsy of the left breast mass and ultrasound-guided fine needle aspiration biopsy of the morphologically abnormal left axillary lymph node are requested to evaluate for malignancy. In addition, a right unilateral diagnostic mammogram performed at [facility] on 07/16/2014 demonstrated a 2 mm group of indeterminate microcalcifications in the central right breast on the craniocaudal view, and this was thought to be located in the upper central right breast. Stereotactic-guided core needle biopsy is requested to evaluate for malignancy. LEFT BREAST AND AXILLA PROCEDURE AND FINDINGS: The risks and potential benefits of the procedure were discussed with the patient and written informed consent was obtained. Attention was first directed to the morphologically abnormal left axillary lymph node of interest. After sterile preparation of the skin, 1% lidocaine was utilized for local anesthesia. Three separate 25-gauge needles were successively advanced into the lymph node of interest from a lateral approach utilizing sonographic guidance and cytologic specimens were aspirated. Hemostasis was achieved. The specimens were submitted for cytologic evaluation. Attention was then directed to the 1 cm hypoechoic mass with irregular margins in the lower outer quadrant of the left breast at the 4 o'clock position that was identified on the breast sonogram from [facility] dated 07/07/2014. After sterile preparation of the skin, 1% [...] were obtained through the lesion. An UltraClip ribbon-shaped tissue marker clip was then placed at the biopsy site. Hemostasis was achieved. A sterile bandage and an ice pack were applied. The tissue cores were submitted to surgical pathology in formalin for histologic analysis. 2. RIGHT BREAST PROCEDURE AND FINDINGS: The risks and potential benefits of the procedure were discussed with the patient and written informed consent was obtained. Today's digital images of the right breast performed on a standard mammography unit as well as on the stereotactic-guided core needle biopsy table demonstrate that the two mm group of indeterminate microcalcifications of interest is located within the lower central right breast at approximately the 6 o'clock position (rather than within the upper central right breast, as was thought at the time of diagnostic imaging evaluation dated 07/16/2014). The patient was then placed in the prone position on the stereotactic table with the breast in caudocranial compression. The area of interest was localized and targeted utilizing digital imaging with stereotaxis. After sterile preparation of the skin, 1% lidocaine was utilized for local anesthesia at the skin puncture site and 2% lidocaine with epinephrine was utilized for deeper local anesthesia/hemostasis about the biopsy site. A small skin incision was made with a #11 scalpel blade. A 9 gauge [employer] vacuum-assisted biopsy needle was then advanced through the skin incision to the level of the calcifications of interest from an inferior approach utilizing stereotactic guidance and a total of 4 tissue cores were obtained. The specimen radiograph demonstrates that the calcifications of interest are included within the tissue cores. A [employer] Ultra coil-shaped tissue marker clip was then placed at the biopsy site. The needle was removed and hemostasis was achieved. A sterile bandage and an ice pack were applied. The patient tolerated the procedure well and there is no evidence of significant immediate complication. The patient was given verbal as well as written post procedural instructions prior to release from the department. The two tissue core fragments with the majority of the calcifications of interest were within a small cassette within the jar of formalin for special attention by the pathologist. All of the tissue cores were submitted to surgical pathology in formalin as one specimen for histologic analysis. A two-view bilateral digital mammogram was obtained post procedure. The ribbon-shaped metallic tissue marker clip is located in the expected position within the biopsied suspicious mass in the lower outer quadrant of the left breast at the 4 o'clock position, middle depth. In addition, there is a 1.2 cm mass with irregular margins located more posteriorly within the lower outer quadrant of the left breast at the 4 o'clock position. The inclusive measurement of both of these suspicious masses is 6.4 cm on today's post-biopsy mediolateral view. The coil-shaped metallic tissue marker clip within the right breast is located 1 to 2 cm inferior to the expected position of the biopsied microcalcifications at the 6 o'clock position. The attending radiologist, Dr. Anderson, was present throughout the entire procedure. Dr. Simon (diagnostic resident inspector) also participated in this examination. IMPRESSION: 1) Successful ultrasound-guided core needle biopsy of the suspicious hypoechoic mass located within the lower outer quadrant of the left breast at the 4 o'clock position, middle depth. Pathology pending. Of note, there is an additional suspicious mammographic mass located more posteriorly within the lower outer quadrant of the left breast with inclusive measurement 6.4 cm, as discussed above. 2) Successful ultrasound-guided fine needle aspiration biopsy of the morphologically abnormal left axillary lymph node of interest. Cytology pending. 3) Successful vacuum-assisted core needle biopsy of the 2 mm group of indeterminate microcalcifications of interest in the lower central right breast utilizing stereotactic guidance. Pathology pending. ADDENDUM #1 by Isamar Soriano RN for Dr. Violet Anderson on 07/25/2014 at 5:40 p.m.: Pathology evaluation by Dr. 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 This is a malignant finding and surgical intervention is required. The presence of an intraductal papilloma (large/central subtype), with associated calcifications was also noted. Cytology evaluation by Dr. Jane Will of the fine needle aspiration biopsy of the morphologically abnormal LEFT axillary lymph node demonstrated adenocarcinoma. Pathology evaluation by Dr. Ochoa Boo of the tissue cores of the microcalcifications within the lower central right breast demonstrated columnar cell hyperplasia and nodular sclerosing adenosis (with associated calcifications). By report, there were no atypical or malignant findings. These findings are benign and concordant will the imaging findings. The patient will be notified of the biopsy results and recommendations by the referring physician, Dr. Farzaneh Ramey, who will direct surgical management. Note: If left breast conservation therapy is being considered rather than mastectomy, then biopsy of the 1.2 cm suspicious mammographic mass located more posteriorly within the lower outer quadrant of the left breast at the 4 o'clock position is recommended to evaluate the extent of malignancy. Requested By: Dictated By: SUNNY SIMON on Jul 21 2014 4:20P This document has been electronically signed by: VIOLET ANDERSON M.D. on Jul 21 2014 4:50P on Jul 25 2014 5:41P This Addendum has been electronically signed by: VIOLET ANDERSON M.D. on Jul 25 2014 5:57P [id number] Historical Provider IMG MAMMO PROCEDURES Deann l Result * Surgical pathology (07/21/2014) Narrative 07/21/2014 Ordered by an unspecified provider. Historical Provider LAB PATHOLOGY ORDERABLES Final Result * Cytology (07/21/2014) Narrative 07/21/2014 Ordered by an unspecified provider. Historical Provider LAB CYTOLOGY ORDERABLES F inal Result documented in this encounter Visit Diagnoses Diagnosis Lump or mass in breast Malignant neoplasm of breast (female) (HCC) Malignant neoplasm of breast (female), unspecified site Fibroadenosis of breast documented in this encounter Care Teams Program Aide Relationship Specialty Start Date End Date Antoinette Zhu MD [address] [address] PCP - General 08/01/13 07/26/16 documented as of this encounter
--- OUTSIDE RECORDS SUMMARY | 2024-04-26 04:34 | XMS_ITS | Encounter Summary ---
Author Organization [facility] Healthcare Address [address] [place] [address] Care Team Providers Care Bilingual Legal Assistant Name Role Phone Antoinette Zhu MD Primary Care Provider [phone] Encounter Details Date Type Department Care Team (Late st Contact Info) Description 11/10/2013 10:36 PM CDT - 11/11/2013 3:18 AM CDT [place] [id number] [id number] Urinary tract infection; Essential hypertension Social History Tobacco Use Types Packs/Day Years Used Date Smoking Tobacco: Former Alcohol Use Standard Drinks/Week Comments No 0 (1 standard drink = 0.6 oz pur e alcohol) Comments Unknown Sex and Gender Information Value Date Recorded Sex Assigned at Not on file Legal Sex Female 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 [employer] Gender Identity Not on file Sexual Orientation [...] Name Priority Date/Time Associated Diagnosis Comments URINALYSIS Routine 11/11/2013 1:57 AM CDT XR CHEST 1 VIEW Routine 11/11/2013 12:54 AM CDT PLASMA TROPONIN I Routine 11/11/2013 12: 35 AM CDT PLASMA THYROXINE (T4) Routine 11/11/2013 12:35 AM CDT PLASMA THYROID-STIMULATING HORMONE (TSH) Routine 11/11/2013 12:35 AM CDT PLASMA PROTHROMBIN TIME (PT) Routine 11/11/2013 12:35 AM CDT PLASMA COMPREHENSIVE METABOLIC PANEL Routine 11/11/2013 12:35 AM CDT BLOOD CELL COUNT (CBC), MORPHOLOGIC EXAM Routine 11/11/2013 12:35 AM CDT BLOOD B-TYPE NATRIURETIC PEPTIDE (BNP) Routine 11/11/2013 12:35 AM CDT URINE MICROBIOLOGY Routine 11/11/2013 12 :00 AM CDT DISCHARGE LABORATORY CUMULATIVE REPORT 11/11/2013 ELECTROCARDIOGRAPHY (ECG) 11/10/2013 documented in this encounter Results * (ABNORMAL) Urinalysis (11/11/2013 1:57 AM CDT) Color, ur Yellow HISTORICAL RESULTS Clarity, ur Hazy(A) Clear HISTORIC AL RESULTS pH, ur 6.0 5 - 7 HISTORICAL RESULTS Specific gravity, ur 1.023 1.001 - 1.033 HISTORICAL RESULTS Protein, ur Negative Negative HISTORIC AL RESULTS Glucose, ur Negative Negative HISTORIC AL RESULTS Ketones, ur Negative Negative HISTORIC AL RESULTS Bilirubin, ur Negative Negative HISTOR ICAL RESULTS U Blood Moderate(A) Negative HISTORIC AL RESULTS Urobilinogen, quant, ur Normal 0.2 - 1.0 mg/dl HISTORICAL RESULTS Nitrites, ur Negative Negative HISTORI JOY RESULTS Leukocyte esterase, ur Trace(A) Negative HISTORICAL RESULTS WBC, ur 5 - 10(A) 0 - 5 /hpf HISTORICA L RESULTS RBC, ur 5 - 10(A) 0 - 5 /hpf HISTORICA L RESULTS Epithelial cells, ur 10 - 20 /hpf HISTORICAL RESULTS Bacteria, ur Trace HISTORI JOY RESULTS Mucus Present HISTORICAL RESULTS Urine 11/11/2013 1:57 AM CDT us Enmanuel Benedict MD LAB BLOOD ORDERABLES Final Result HISTORICAL RESULTS * XR Chest 1 View (11/11/2013 12:54 AM CDT) Anatomical Region Laterality Modality Body, Chest N/A Radiographic Lizeth ging 11/11/2013 12:5 4 AM CDT Narrative 11/12/2013 4:13 PM CDT DATE OF EXAM: ??Nov 11 2013 12:54AM Acc#: ??[id number] ??EDX 0031 - XR Chest Portable ?? DIAGNOSIS: ??WEAKNESS, HEART PALPATING CLINICAL HISTORY: ?? [id number] RESULT: \ PORTABLE AP SUPINE CHEST, ONE VIEW FINDINGS: ??An AP portable supine view of the chest shows the heart, lungs, pulmonary vascularity, mediastinum and bony thorax to be within normal limits. ??There is no evidence of pleural fluid. IMPRESSION: NORMAL AP PORTABLE SUPINE CHEST. HIGH SCHOOL PROFESSIONAL: ??PW2 TRANSCRIBE DATE/TIME: ??Nov 12 2013 ??2:46P RADIOLOGIST: ??SILVIA RUIBO M.D. ??READ ON: ??Nov 11 2013 ??8:30A ORDERING DR: ENMANUEL EBNEDICT M.D. THIS DOCUMENT HAS BEEN ELECTRONICALLY SIGNED BY: ??SILVIA RUBIO M.D. ??ON: ??Nov 12 2013 ??4:12P Requesting Fax: ??[phone] Procedure Note Provider, Tyler, - 08/12/2016 DATE OF EXAM: Nov 11 2013 12:54AM Acc#: [id number] EDX 0031 - XR Chest Portable DIAGNOSIS: WEAKNESS, HEART PALPATING CLINICAL HISTORY: [id number] RESULT: \ PORTABLE AP SUPINE CHEST, ONE VIEW FINDINGS: An AP portable supine view of the chest shows the heart, lungs, pulmonary vascularity, mediastinum and bony thorax to be within normal limits. There is no evidence of pleural fluid. IMPRESSION: NORMAL AP PORTABLE SUPINE CHEST. HIGH SCHOOL PROFESSIONAL: PW2 TRANSCRIBE DATE/TIME: Nov 12 2013 2:46P RADIOLOGIST: SILVIA RUBIO M.D. READ ON: Nov 11 2013 8:30A ORDERING DR: ENMANUEL BENEDICT M.D. THIS DOCUMENT HAS BEEN ELECTRONICALLY SIGNED BY: SILVIA RUBIO M.D. ON: Nov 12 2013 4:12P Requesting us Historical Provider IMG XR PROCEDURES Final R esult * Plasma prothrombin time (PT) (11/11/2013 12:35 AM CDT) Prothrombin time (PT) 15.2 11.5 - 15.5 seconds HISTORICAL RESULTS INR 1.16 0.81 - 1.21 HISTORIC AL RESULTS Plasma 11/11/2013 12:3 5 AM CDT us Enmanuel Benedict MD LAB BLOOD ORDERABLES Final Result HISTORICAL RESULTS * (ABNORMAL) Blood cell count (CBC), morphologic exam (11/11/2013 12:35 AM CDT) WBC 11.1(H) 5.0 - 10.0 K/cumm HISTORICAL RESULTS RBC 4.62 4.20 - 5.20 M/cumm HISTORICAL RESULTS Hgb 13.0 12.0 - 15.0 g/dl HISTORICAL RESULTS Hct 40.2 37.0 - 47.0 % HISTORICAL RESULTS MCV 87.0 82.0 - 96.0 fl HISTORICAL RESULTS MCH 28.1 27.0 - 32.0 pg HISTORICAL RESULTS MCHC 32.3 29.0 - 35.0 g/dl HISTORICAL RESULTS Platelets 298 150 - 450 K/cumm HISTORICAL RESULTS RDW 44.6 36.4 - 46.3 fl HISTORICAL RESULTS Rdw 14.2 11.5 - 14.5 % HISTORICAL RESULTS MPV 9.7 8.6 - 12.6 fl HISTORICAL RESULTS Neutrophils 60.9 42.0 - 85.0 % HISTORICAL RESULTS Neutrophils, abs 6.8 2.1 - 8.5 K/cumm HISTORICAL RESULTS Lymphocytes 28.5 16.0 - 52.0 % HISTORICAL RESULTS Lymphocytes, abs 3.2 0.8 - 5.2 K/cumm HISTORICAL RESULTS Monos 7.7 1.0 - 13.0 % HISTORICAL RESULTS Monocytes, absolute 0.9 0.0 - 1.3 K/cumm HISTORICAL RESULTS Eosinophils [...] 0.01 K/cumm HISTORICAL RESULTS Blood specimen (specimen) 11/11/2013 12:35 AM CDT Enmanuel Benedict MD LAB BLOOD ORDERABLES Final Result HISTORICAL RESULTS * Plasma thyroxine (T4) (11/11/2013 12:35 AM CDT) T4 7.6 6.1 - 12.2 mcg/dl HISTORICAL RESULTS Plasma 11/11/2013 12:3 5 AM CDT us Enmanuel Benedict MD LAB BLOOD ORDERABLES Final Result Performing Organization Address [facility] de Phone Number HISTORICAL RESULTS * (ABNORMAL) Blood B-type natriuretic peptide (BNP) (11/11/2013 12:35 AM CDT) [facility] BNP 165(H) 0 - 100 pg/ml HISTORICAL RESULTS Blood specimen (specimen) 11/11/2013 12:35 AM CDT us Enmanuel Benedict MD LAB BLOOD ORDERABLES Final Result Performing Organization Address [facility] de Phone Number HISTORICAL RESULTS * Plasma troponin I (11/11/2013 12:35 AM CDT) [facility] Troponin I <0.03 0.00 - 0.14 ng/ml HISTORICAL RESULTS Comment: Troponin Reference Ranges: Normal: ?0.00 - 0.14 ng/mL Indeterminate: ?0.15 - 0.50 ng/mL ID / Cardiac Muscle Damage: ?>0.50 ng/mL Plasma 11/11/2013 12:3 5 AM CDT us Enmanuel Benedict MD LAB BLOOD ORDERABLES Final Result Performing Organization Address [facility] de Phone Number HISTORICAL RESULTS * (ABNORMAL) Plasma comprehensive metabolic panel (11/11/2013 12:35 AM CDT) [facility] BUN 14 8 - 24 mg/dl HISTORICAL RESULTS Glucose 135 70 - 199 mg/dl HISTORICAL RESULTS Sodium 135 135 - 145 mmol/L HISTORICAL RESULTS K, pl 4.2 3.5 - 5.1 mmol/L HISTORICAL RESULTS Chloride 103 100 - 114 mmol/L HISTORICAL RESULTS CO2 29 22 - 32 mmol/L HISTORICAL RESULTS Creatinine 0.80 0.60 - 1.30 mg/dl HISTORICAL RESULTS AST 17 7 - 40 Units/L HISTORICAL RESULTS ALT 19 1 - 45 Units/L HISTORICAL RESULTS Alk phos 83 30 - 110 Units/L HISTORICAL RESULTS Calcium 9.2 8.4 - 10.5 mg/dl HISTORICAL RESULTS Bilirubin 0.50 0.10 - 1.30 mg/dl HISTORICAL RESULTS Protein, pl 7.8 6.0 - 8.3 g/dl HISTORICAL RESULTS Alb 3.3 3.2 - 4.8 g/dl HISTORICAL RESULTS Globulin 4.5(H) 2.0 - 4.3 g/dl HISTORICAL RESULTS A. gap 7(L) 8 - 16 mmol/L HISTORICAL RESULTS eGFR 74 90 - 200 ml/min/1.7 3 m2 HISTORICAL RESULTS Comment: If this individual is -Pakistani, multiply result by 1.21 Repeated results of less than 60 is indicative of chronic kidney disease. MDRD formula has not been validated on individuals greater than 70 years old. Plasma 11/11/2013 12:3 5 AM CDT Enmanuel Benedict MD LAB BLOOD ORDERABLES Final Result HISTORICAL RESULTS * (ABNORMAL) Plasma thyroid-stimulating hormone (TSH) (11/11/2013 12:35 AM CDT) TSH 0.07(L) 0.34 - 5.60 mcIUnits/ml HISTORICAL RESULTS Plasma 11/11/2013 12:3 5 AM CDT Enmanuel Benedict MD LAB BLOOD ORDERABLES Final Result HISTORICAL RESULTS * DISCHARGE LABORATORY CUMULATIVE REPORT (11/11/2013) Narrative 11/11/2013 Ordered by an unspecified provider. Historical Provider LAB BLOOD ORDERABLES Deann l Result * Urine Microbiology (11/11/2013 12:00 AM CDT) 11/11/2013 Narrative HISTORICAL RESULTS - 11/13/2013 9:51 AM CDT [facility] ?Patient Name: ?MOHSEN SALAZAR ?Med. Rec#: ?? [id number] ?Pt. Acct.#: ??[id number] ?Birthdate: ?? 1955 ?Age / Sex: ?? 58Y / F ?Location: ?[facility] (Emergen[facility] ?Admit Date: ??11/10/2013 ?Discharge Date: ? 11/11/2013 ?Doctor: ?Enmanuel Benedict ?Patient Type: ?[facility] 2 Culture, Urine ? Collected: 11/11/2013 01:57 Specimen: Urine ?? Specimen Source: Clean Voided Specimen Status: Final ??Last Update: 11/13/2013 09:09 Organism ?? Less than 10,000 cfu/ml of ?? multiple Gram positive organisms Comment ? This culture result is consistent with contamination ?? by normal genital-perineal evelio. Historical Provider LAB MICROBIOLOGY - GENERA L ORDERABLES Final Result HISTORICAL RESULTS * ELECTROCARDIOGRAPHY (ECG) (11/10/2013) Narrative 11/10/2013 Ordered by an unspecified provider. Historical Provider ECG ORDERABLES Final Res ult documented in this encounter Visit Diagnoses Diagnosis Urinary tract infection Urinary tract infection, site not specified Essential hypertension Unspecified essential hypertension documented in this encounter Care Teams Bilingual Legal Assistant Relationship Specialty Start Date End Date Antoinette Zhu MD [address] [address] PCP - General 08/01/13 07/26/16 documented as of this encounter
--- OUTSIDE RECORDS SUMMARY | 2024-04-26 04:55 | XMS_ITS | Encounter Summary ---
Author Organization [facility] Address [address] [place] [address] Care Team Providers Care President And Chief Executive Officer Name Role Phone Unavailable Primary Care Provider Unavailabl e Reason for Visit * Reason Onset Date Comments Wants Appointment 07/07/2017 Encounter Details Date Type Department Care Team (Late st Contact Info) Description 07/07/2017 Telephone [facility] Neurology [place] [facility] [id number] [place] [address] Odalys Loyola MD [address] [place] [address] Wants Appointment Social History Tobacco Use Types Packs/Day Years Used Date Smoking Tobacco: Never Assessed Sex and Gender Information Value Date Recorded Sex Assigned at Not on file Gender Identity Not on file Sexual Orientation Not on file documented as of this encounter Miscellaneous Notes * Telephone Encounter - Rosalba Brownlee - 07/07/2017 9:08 AM CDT Received referral from [facility] to schedule a POCKET OPERATOR appointment with Dr. Loyola for neuropathy. Called and left message for patient to call back to schedule. Referral scanned in. documented in this encounter Plan of Treatment Not on file documented as of this encounter Visit Diagnoses Not on filedocumented in this encounter
--- OUTSIDE RECORDS SUMMARY | 2024-04-26 04:55 | XMS_ITS | Encounter Summary ---
Author Organization [facility] Address [address] [place] [address] Care Team Providers Care Rectification Printer Name Role Phone Justen Gale MD Primary Care Provider [phone] Reason for Visit * Reason Comments Shortness of Breath 62F ambulatory for c /o SOB and generalized body pain that started today. denies fever, +diarrhea, no urinary complaints. speaking in short sentences. * Auth/Cert Specialty Diagnoses / Procedures Referred By Elyssa benavides Referred To Contact Emergency Medicine [facility] Emergency Dept [address] [place] [address] Referral ID Status Reason Start Date Expiration Date Visits Re quested Visits Authorized [id number] 1 1 Encounter Details Date Type Department Care Team (Late st Contact Info) Description 09/14/2017 9:31 PM CDT - 09/14/2017 11:49 PM CDT Emergency [facility] Emergency Department [address] [place] [address] Lester Boss MD [address] [place] [address] Neuropathy (Primary Dx) Discharge Disposition: Home or Self Care Social [...] Sign Reading Time Taken Comments Blood Pressure 109/76 09/14/2017 11:48 PM CDT Pulse - - Temperature 36.7 ??C (98 ??F) 09/14/2017 9:23 PM CDT Respiratory Rate 16 09/14/2017 11:48 PM CDT Oxygen Saturation 100% 09/14/2017 11:48 PM CDT Inhaled Oxygen Concentration - - Weight 120.2 kg (265 lb) 09/14/2017 9:23 PM CDT Height 154.9 cm (5' 1 ) 09/14/2017 9:23 PM CDT Body Mass Index 50.07 09/14/2017 9:23 PM CDT documented in this encounter Discharge Instructions * Attachments The following attachments cannot be sent through Care Everywhere. * Neuropathic Pain (Frisian) documented in this encounter Medications at Time of Discharge Medication Sig Dispensed Refills Start Date End Date lisinopril (PRINIVIL) 20 mg tablet Take 20 mg by mouth daily. 05/11/2012 oxybutynin chloride (DITROPAN) 5 mg tablet Take 5 mg by mouth daily. 12/12/2013 polyethylene glycol 3350 (MIRALAX) 17 gram/dose Powder Mix 1 scoop (17 g) in 8 oz of water and drink daily. 08/15/2017 rOPINIRole (REQUIP) 5 mg Tablet Take 5 mg by mouth daily at bedtime. 05/11/2012 HYDROcodone-acetaminoph en (NORCO) 5-325 mg tablet Take 1 Tablet by mouth every 4 hours as needed for Pain, Break-Through. Max Daily Amount: 6 Tablets 12 Tablet 09/14/2017 pregabalin (LYRICA) 75 mg Capsule Take 1 Capsule (75 mg) by mouth every 12 hours for 14 days. 28 Capsule 09/14/2017 09/28/2017 documented as of this encounter ED Notes * Tamika Shankar RN - 09/14/2017 11:47 PM CDT Patient/family has been informed about benefits and any potential clinically significant side effects or other concerns regarding the administration of the drug they have just been given. * Elizabeth Mccallum RN - 09/14/2017 11:01 PM CDT CLARK Abel to bedside with assessment. * Elizabeth Mccallum RN - 09/14/2017 10:42 PM CDT This RN agrees with triage note, 62F ambulatory for c/o SOB and generalized body pain that started today. denies fever, +diarrhea, no urinary complaints. speaking in short sentences. Pt to ED with c/o diffuse pain that is an 8/10. Pt denies fevers. +diarrhea, denies blood in stool.PT denies emesis, with + intermittent nausea. Pt Denies chest pain and sob. Pt denies abd pain. Abdsoft and non tender. PT placed on CM, pulse ox, and bP monitors. VSS. Skin PWD. RR even and unlabored. Pt IV inserted and blood work obtained. PT given morphine and zofran per JUN. Patient/family hasbeen informed about benefits and any potential clinically significant side effects or other concerns regarding the administration of the drug they have just been given. Aware of plan of care. Call light in reach. * Lester Boss MD - 09/14/2017 9:17 PM CDT HISTORY OF PRESENT ILLNESS Mohsen Marques, a 62 y.o. female presents to the ED with a Chief Complaint of Shortness of Breath Subjective 9:45 PM: Mohsen Marques is a 62 y.o. female with a history of DM, breast cancer, and blood clots, who presents to the Emergency Department with complaints of burning pain to the arms and legs. States that she has underlying history of diabetes and will have intermittent pain to the lower extremities. States over the past few days she developed pain to the upper extremities. Pain is describes as pins and needles, burning sensation. She states that the pain causes her to feel short of breath. States that the pain causes her to catch her breath. Denies outright exertional shortness of breath or chest pressure or pain. States has not taken anything for pain thus far. She denies any recent fevers or chills. Denies coughing or cold symptoms. Denies abdominal pain. Has reported a few loose,watery stools. No bloody or black stools. Denies nausea vomiting. Patient states that she does havehistory of blood clots. Currently taking xeralto. Denies any increased calf pain at this time. Physician(s): No primary care provider on file. History provided by: The patient Arrived by: Private vehicle Arrived from: Home REVIEW OF SYSTEMS Review of Systems Constitutional: Negative for chills and fever. HENT: Negative for congestion and rhinorrhea. Eyes: Negative for discharge and redness. Respiratory: Positive for shortness of breath. Negative for cough. Cardiovascular: Negative for chest pain and leg swelling. Gastrointestinal: Negative for abdominal pain, blood in stool, constipation, diarrhea, nausea and vomiting. Genitourinary: Negative for dysuria and hematuria. Musculoskeletal: Positive for myalgias (generalized). Negative for back pain and neck pain. Skin: Negative for rash and wound. Neurological: Negative for dizziness and headaches. Hematological: Does not bruise/bleed easily. PAST MEDICAL HISTORY REVIEWED MEDICAL: Patient has a past medical history of Breast cancer; Diabetes mellitus; HTN (hypertension); Hyperthyroidism; Pulmonary embolus; and RLS (restless legs syndrome). She also has no past medical history of Patient denies relevant medical history. SURGICAL: Patient has a past surgical history that includes hx mastectomy; hx knee replacement; hx cholecystectomy; and hx hernia repair. FAMILY: Patient's family history is not on file. SOCIAL: reports that she has never smoked. She has never used smokeless tobacco. She reports that she does not drink alcohol or use drugs. No history on file. Social History Other Topics Concern ??? Not on file PROBLEM LIST: Patient does not have a problem list on file. ALLERGIES Oxycodone; Reglan [metoclopramide hcl]; and Rocephin [ceftriaxone] HOME MEDICATIONS Patient's Home Medications Current Home Medications Medications Modified during this Encounter Medications Discontinued during this Encounter Objective PHYSICAL EXAM INITIAL VS BP: 114/84 (09/14/172122), Heart Rate: 91 bpm (09/14/172122), Resp: 24 (09/14/172122), Temp: 98 ??F (36.7 ??C) (05/24/18 2123), Temp src: (not recorded), SpO2: 97 % (09/14/172122), Height: 5' 1 (154.9 cm) (09/14/172122), Weight: 120.2 kg (265 lb) (09/14/172122), BMI (Calculated): 50.1 (09/14/172122) No LMP recorded. Patient is postmenopausal. Physical Exam Constitutional: She is oriented to person, place, and time. Morbidly obese HENT: Head: Normocephalic and atraumatic. Mouth/Throat: Oropharynx is clear and moist. Eyes: Conjunctivae and EOM are normal. Pupils are equal, round, and reactive to light. Neck: Neck supple. No JVD present. No tracheal deviation present. No thyromegaly present. Cardiovascular: Normal rate and regular rhythm. Exam reveals no gallop and no friction rub. No murmur heard. Pulses: Radial pulses are 2+ on the right side, and 2+ on the left side. Dorsalis pedis pulses are 2+ on the right side, and 2+ on the left side. Pulmonary/Chest: Effort normal and breath sounds normal. No respiratory distress. She has no wheezes. She has no rales. Abdominal: Soft. She exhibits no distension. There is no tenderness. There is no rebound and no guarding. Musculoskeletal: She exhibits edema (trace). Cervical back: She exhibits decreased range of motion. Thoracic back: She exhibits tenderness. Lumbar back: She exhibits tenderness. 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 Neurological: She is alert and oriented to person, place, and time. Skin: No rash noted. No erythema. Nursing note and vitals reviewed. DIAGNOSTICS LAB: CBC WITH DIFFERENTIAL - Abnormal Result Value WBC 10.9 (*) RBC 4.09 HEMOGLOBIN 11.2 (*) HEMATOCRIT 35.7 MCV 87.3 MCH 27.4 MCHC 31.4 (*) RDW 15.0 (*) RDW-STDEV 47.8 PLATELETS 315 MPV 9.5 NEUTROPHILS 65 LYMPHOCYTES 22 MONOCYTES 9 EOSINOPHILS 3 BASOPHILS 0 IMMATURE GRANULOCYTES 1 NEUTROPHIL ABSOLUTE 7.09 (*) LYMPHOCYTE ABSOLUTE 2.42 MONOCYTE ABSOLUTE 0.93 EOSINOPHIL ABSOLUTE 0.32 BASOPHILS ABSOLUTE 0.04 IMMATURE GRANULOCYTES ABSOLUTE 0.06 (*) COMPREHENSIVE METABOLIC PANEL - Abnormal SODIUM 139 POTASSIUM 4.4 CHLORIDE 101 CO2 28 CALCIUM 9.6 BUN 16 CREATININE 0.80 GLUCOSE 151 (*) TOTAL PROTEIN 7.9 ALBUMIN 3.6 BILIRUBIN TOTAL 0.3 ALKALINE PHOSPHATASE 78 AST 18 ALT 15 GFR >60 GFR, >60 ANION GAP 10 D-DIMER - Normal D-DIMER QUANT <0.27 RADIOLOGY: XR CHEST PA AND LATERAL 2 VW XR CHEST PA AND LATERAL 2 VW Radiologist Impression IMPRESSION: Prominence of interstitial lung markings, otherwise negative exam. Dictation location 1 [facility] EKG: Sinus rhythm, rate 83, normal axis, normal intervals, normal QRS, normal QT, no significant ST segment changes. PROCEDURES Procedures MEDICAL DECISION MAKING AND PLAN OF CARE 10:57 PM: Patient will be discharged home with Rx for Lyrica. Recommended follow up with PCP. RTER with worsening sx. Pt understands and agrees with the plan. All questions and concerns addressed. The patient is stable for discharge. ED provider and ED nurse verbally discussed patient plan of care at this time. MDM Summary Statement: 62 year old female who presents with diffuse body burning sensation . Has underlying history of diabetes. Symptoms could be due to neuropathic pain. No obvious bony abnormality appreciated. No midline back tenderness. Do not think cord compression or injury at this time. She described shortness ofbreath, however, she states secondary to pain. EKG without dynamic ST changes. Do not think ACS. Already on Xaralto for PE. States that I am not on any pain medication , however I have reviewed careeverywhere and patient has been prescribed 90 tablets of norco 6 weeks ago and has had several ER visits in the past month at different facilities for pain related issues. I think some symptoms couldbe an exacerbation of her chronic pain. Will start Lyrica for potential neuropathic pain. Will giveshort of norco until follow up with pcp. I have reviewed previous: notes I have reviewed current: labs and imaging I have reviewed nursing notes related to past medical history, social history, and review of systems and agree, unless otherwise noted. Medications Administered During the ED Stay from 09/14/20172116 to 09/14/20172346 Date/Time Order Dose Route Action 09/14/20172219 morphine injection 10 mg 10 mg IV Given 09/14/20172219 ondansetron (ZOFRAN ODT) tablet 4 mg 4 mg Oral Given 09/14/20172346 HYDROcodone-acetaminophen (NORCO) 5-325 mg per tablet 2 Tablet 2 Tablet Oral Given . New Prescriptions for this Encounter HYDROCODONE-ACETAMINOPHEN (NORCO) 5-325 MG TABLET Take 1 Tablet by mouth every 4 hours as needed for Pain, Break-Through. Max Daily Amount: 6 Tablets PREGABALIN (LYRICA) 75 MG CAPSULE Take 1 Capsule (75 mg) by mouth every 12 hours for 14 days. LAST VS BP: 114/84 (09/14/172122), Heart Rate: 91 bpm (09/14/172122), Resp: 24 (09/14/172122), Temp: 98 ??F (36.7 ??C) (09/14/172122), Temp src: (not recorded), SpO2: 97 % (09/14/172122) CLINICAL IMPRESSION Final diagnoses: [G62.9] Neuropathy (Primary) DISPOSITION, EDUCATION AND MEDICATION RECONCILIATION Medications reconciled. See after visit summary for patient education on discharged patients. Follow up: Justen Gale MD [address] [facility] [address] [facility] [address] Schedule an appointment as soon as possible for a visit in 1 day re-evaluation and further treatment DISCHARGED HOME IN STABLE CONDITION. ED Disposition ED Disposition Condition User Date/Time Comment Discharge Stable Lester Boss MD [facility] September 14, 2017 11:39 PM ATTESTATION STATEMENTS This note has been prepared by Bladimir Rosales acting as a scribe for Dr. Lester Boss on 09/14/2017 at 11:00 PM. The scribe's documentation has been prepared under my direction and personally reviewed by me, Lester Boss MD , in its entirety on 09/14/17 at 11:47 PM. I confirm that the note above accurately reflects all work, treatment, procedures, and medical decision making performed by me. documented in this encounter Plan of Treatment Not on file documented as of this encounter Procedures Procedure Name Priority Date/Time Associated Diagnosis Comments EKG 12-LEAD Stat 09/14/2017 10:57 PM CDT CBC WITH DIFFERENTIAL Stat 09/14/2017 10:20 PM CDT D-DIMER Stat 09/14/2017 10:20 PM CDT COMPREHENSIVE METABOLIC PANEL Stat 09/14/2017 10:20 PM CDT XR CHEST PA AND LATERAL 2 VW Stat 09/14/2017 10:15 PM CDT documented in this encounter Results * EKG 12-LEAD (09/14/2017 10:57 PM CDT) 09/14/2017 10:5 7 PM CDT Narrative INTERFACE SYSTEM - 09/15/2017 10:47 PM CDT ? Stationary ECG Study ? [facility] ? Test Date: ?09/14/2017 10:57 PM Pat Name: ? MOHSEN MARQUES ?Department: ?? 40 ?Room: ? Gender: ? F ?[employer]: ?? spiek2 : ?1955 ? Requested By: ?? Order Number: [id number] ?Reading MD: ?? Justen Hampton ? Measurements Intervals ?[place] ? Rate: ? 83 ? P: ?33 HI: ? 127 ?QRS: ?5 QRSD: ? 96 ? T: ?52 QT: ? 373 ? QTc: ?439 ? Interpretive Statements ? Sinus rhythm Abnormal R-wave progression, early transition Nonspecific T wave abnormality Electronically Signed On 09-15-2017 22:47:20 CDT by Justen Hampton Procedure Note Provider, Historical - 06/30/2021 Stationary ECG Study [facility] Test Date: 09/14/2017 10:57 PM Pat Name: MOHSEN MARQUES Department: 40 Room: Gender: F [employer]: smita : 1955 Requested By: Order Number: [id number] Reading MD: Justen Hampton Measurements Intervals [place] Rate: 83 P: 33 HI: 127 QRS: 5 QRSD: 96 T: 52 QT: 373 QTc: 439 Interpretive Statements Sinus rhythm Abnormal R-wave progression, early transition Nonspecific T wave abnormality Electronically Signed On 09-15-2017 22:47:20 CDT by Justen Hampton Lester Boss MD ECG ORDERABLES INTERFACE SYSTEM Refer to clinic/hospital department * (ABNORMAL) COMPREHENSIVE METABOLIC PANEL (09/14/2017 10:20 PM CDT) SODIUM 139 136 - 145 mmol/L 09/14/2017 11:10 PM CDT [facility] POTASSIUM 4.4 3.5 - 5.0 mmol/L 09/14/2017 11:10 PM CDT [facility] CHLORIDE 101 98 - 107 mmol/L 09/14/2017 11:10 PM CDT [facility] CO2 28 22 - 29 mmol/L 09/14/2017 11:10 PM CDT [facility] CALCIUM 9.6 8.6 - 10.2 mg/dL 09/14/2017 11:10 PM CDT [facility] BUN 16 8 - 23 mg/dL 09/14/2017 11:10 PM CDT [facility] CREATININE 0.80 0.51 - 0.95 mg/dL 09/14/2017 11:10 PM CDT [facility] GLUCOSE 151(H) 74 - 99 mg/dL 09/14/2017 11:10 PM CDT [facility] TOTAL PROTEIN 7.9 6.7 - 8.6 g/dL 09/14/2017 11:10 PM CDT [facility] ALBUMIN 3.6 3.5 - 5.2 g/dL 09/14/2017 11:10 PM CDT [facility] BILIRUBIN TOTAL 0.3 0.2 - 1.1 mg/dL 09/14/2017 11:10 PM CDT [facility] ALKALINE PHOSPHATASE 78 35 - 104 U/L 09/14/2017 11:10 PM [facility] AST 18 <33 U/L 09/14/2017 11:10 PM T [facility] ALT 15 <34 U/L 09/14/2017 11:10 PM [facility] GFR >60 >=60 mL/min/1.7 3 sq meter 09/14/2017 11:10 PM T [facility] Comment: eGFR has not been validated for use in the elderly (> 70 years of age), women, patients with serious co-morbid conditions, or persons with extremes of body size or muscle mass and should also be interpreted with caution in patients with acute kidney failure, dialysis dependent patients, patients reporting exceptional dietary intake (e.g. vegetarian diet, high protein diets, creatine supplementation), and patients with severe liver disease. Based on National Kidney Disease Education Program If patient is , please refer to the GFR result. GFR, >60 >=60 mL/min/1.7 3 sq meter 09/14/2017 11:10 PM CDT [facility] ANION GAP 10 8 - 16 mmol/L 09/14/2017 11:10 PM [facility] Blood Venipuncture / Unknown 09/14/2017 10:20 PM CDT 09/14/2017 10:38 PM CDT Narrative [facility] - 09/14/2017 11:10 PM CDT Samples containing indocyanine green cause interferences on Total and/or Direct Bilirubin and must not be measured. Lester Boss MD CHEMISTRY ORDERABLES [facility]# [id number] [address] [address] * D-DIMER (09/14/2017 10:20 PM CDT) D-DIMER QUANT <0.27 <0.42 ug/mL FEU 09/14/2017 11:34 PM CDT [facility] Comment: The DIC reference range is not clearly established in uncomplicated pregnancies. ??Values above the upper limit of the reference range are common from the 31st to 40th week of . ??High negative predictive values for DVT have been reported with the current methodology, as part of a comprehensive medical examination, including risk stratification. Various clinical studies utilizing this method have shown that a result of <0.5 mcg/ml FEU excludes deep vein thrombosis and pulmonary embolism with high sensitivity when used in conjunction with a non-high clinical pre-test probability assessment. Blood Venipuncture / Unknown 09/14/2017 10:20 PM CDT 09/14/2017 10:38 PM CDT Lester Boss MD HEMATOLOGY ORDERABLE S [facility] CLIA# [id number] [address] [place] [address] * (ABNORMAL) CBC WITH DIFFERENTIAL (09/14/2017 10:20 PM CDT) WBC 10.9(H) 4.0 - 9.8 K/uL 09/14/2017 10:46 PM CDT [facility] RBC 4.09 3.90 - 4.90 M/uL 09/14/2017 10:46 PM CDT [facility] HEMOGLOBIN 11.2(L) 11.8 - 14.8 g/dL 09/14/2017 10:46 PM CDT [facility] HEMATOCRIT 35.7 35.5 - 44.0 % 09/14/2017 10:46 PM CDT [facility] MCV 87.3 82.0 - 99.0 fL 09/14/2017 10:46 PM CDT [facility] MCH 27.4 27.2 - 32.6 pg 09/14/2017 10:46 PM CDT [facility] MCHC 31.4(L) 31.5 - 35.5 g/dL 09/14/2017 10:46 PM CDT [facility] RDW 15.0(H) 11.5 - 14.5 % 09/14/2017 10:46 PM T [facility] RDW-STDEV 47.8 37.1 - 48.7 fL 09/14/2017 10:46 PM [facility] [employer] [facility] PLATELETS 315 140 - 350 K/uL 09/14/2017 10:46 PM [employer] [facility] MPV 9.5 9.3 - 12.4 fL 09/14/2017 10:46 PM T [facility] NEUTROPHILS 65 % 09/14/2017 10:46 PM T [facility] LYMPHOCYTES 22 % 09/14/2017 10:46 PM [employer] [facility] MONOCYTES 9 % 09/14/2017 10:46 PM [employer] [facility] EOSINOPHILS 3 % 09/14/2017 10:46 PM [employer] [facility] BASOPHILS 0 % 09/14/2017 10:46 PM [employer] [facility] IMMATURE GRANULOCYTES 1 % 09/14/2017 10:46 PM [employer] [facility] Comment:IG (Immature Granulo cyte) count includes Metamyelocytes, Myelocytes, and Promyelocytes NEUTROPHIL ABSOLUTE 7.09(H) 1.90 - 7.00 K/uL 09/14/2017 10:46 PM [employer] [facility] LYMPHOCYTE ABSOLUTE 2.42 0.70 - 4.50 K/uL 09/14/2017 10:46 PM [employer] [facility] MONOCYTE ABSOLUTE 0.93 0.10 - 1.30 K/uL 09/14/2017 10:46 PM [employer] [facility] EOSINOPHIL ABSOLUTE 0.32 0.00 - 0.70 K/uL 09/14/2017 10:46 PM [employer] [facility] BASOPHILS ABSOLUTE 0.04 0.00 - 0.20 K/uL 09/14/2017 10:46 PM [employer] [facility] IMMATURE GRANULOCYTES ABSOLUTE 0.06(H) 0.00 - 0.03 K/uL 09/14/2017 10:46 PM T [facility] Blood Venipuncture / Unknown 09/14/2017 10:20 PM CDT 09/14/2017 10:38 PM CDT Lester Boss MD HEMATOLOGY ORDERABLE S [facility] CLIA# [id number] [address] [place] [address] * XR CHEST PA AND LATERAL 2 VW (09/14/2017 10:15 PM CDT) Anatomical Region Laterality Modality Chest Computed Radiogr aphy 09/14/2017 10:1 5 PM CDT Impressions 09/14/2017 11:15 PM CDT IMPRESSION: Prominence of interstitial lung markings, otherwise negative exam. Dictation location 1 [facility] Narrative 09/14/2017 11:15 PM CDT CHEST 2 VIEWS, 09/14/2017 HISTORY: ??Shortness of breath with generalized body pain today. FINDINGS: Examination shows reticular lung markings are prominent. No areas of consolidation are seen. Heart size is normal. Pulmonary vascularity is normal. No pneumothorax is visible. No pleural effusion is evident. Degenerative spurring is seen along the thoracic spine. Procedure Note Dillon Mondragon MD - 09/14/2017 CHEST 2 VIEWS, 09/14/2017 HISTORY: Shortness of breath with generalized body pain today. FINDINGS: Examination shows reticular lung markings are prominent. No areas of consolidation are seen. Heart size is normal. Pulmonary vascularity is normal. No pneumothorax is visible. No pleural effusion is evident. Degenerative spurring is seen along the thoracic spine. IMPRESSION: Prominence of interstitial lung markings, otherwise negative exam. Dictation location 1 [facility] Lester Boss MD DIAGNOSTIC IMAGING O RDERABLES documented in this encounter Visit Diagnoses Diagnosis Neuropathy- Primary Mononeuritis of unspecified site documented in this encounter Administered Medications Inactive Administered Medications - up to 3 most recent administrations Medication Order MAR Action Action Date Dose Rate Site HYDROcodone-acetaminophen (NORCO) 5-325 mg per tablet 2 Tablet 2 Tablet, Oral, ONE TIME ONLY, 1 dose, On Valeri 09/14/17 at 2345, Routine Given 09/14/2017 11:47 PM CDT 2 Tablets morphine injection 10 mg 10 mg, IV, ONE TIME ONLY, 1 dose, On Valeri 09/14/17 at 2200, Routine Given 09/14/2017 10:20 PM CDT 10 mg ondansetron (ZOFRAN ODT) tablet 4 mg 4 mg, Oral, ONE TIME ONLY, 1 dose, On [place]eri 09/14/17 at 2200, Routine Given 09/14/2017 10:20 PM CDT 4 mg documented in this encounter Active and Recently Administered Medications Times are shown in CDT. Scheduled Medication Order 09/12/2017 09/13/2017 09/14/2017 HYDROcodone-acetaminophen (NORCO) 5-325 mg per tablet 2 Tablet (COMPLETED) 2 Tablet, Oral, ONE TIME ONLY, 1 dose, On [place]eri 09/14/17 at 2345, Routine 2347 (Given - Provid er: Tamika Shankar RN) morphine injection 10 mg (COMPLETED) 10 mg, IV, ONE TIME ONLY, 1 dose, On [place]eri 09/14/17 at 2200, Routine 2220 (Given - Provid er: Elizabeth Mccallum RN) ondansetron (ZOFRAN ODT) tablet 4 mg (COMPLETED) 4 mg, Oral, ONE TIME ONLY, 1 dose, On Valeri 09/14/17 at 2200, Routine 2220 (Given - Provid er: Elizabeth Mccallum RN) documented in this encounter Care Teams Rectification Printer Relationship Specialty Start Date End Date Justen Gale MD [address] [facility] [address] [place] [id number] PCP - General Cardiovascular Disease 09/14/17 documented as of this encounter
--- OUTSIDE RECORDS SUMMARY | 2024-04-26 04:55 | XMS_ITS | Clinical Summary ---
Author Organization [facility] Address [address] [place] [address] Phone Care Team Providers Care Annealer Name Role Phone Justen Gale MD Primary Care Provider [phone] Allergies Active Allergy Reactions Criticality Noted Date Comments Ceftriaxone Anaphylaxis High 09/14/2017 Metoclopramide Hcl Unknown 09/14/2017 Oxycodone Nausea and Vomiting Low 09/14/2017 Medications Medication Sig Dispensed Refills Start Date End Date Status HYDROcodone-acetamin ophen (NORCO) 5-325 mg tablet Take 1 Tablet by mouth every 4 hours as needed for Pain, Break-Through. Max Daily Amount: 6 Tablets 12 Tablet 09/14/2017 Active exemestane (AROMASIN) 25 mg Tablet Take 25 mg by mouth daily. Active lisinopril (PRINIVIL) 20 mg tablet Take 20 mg by mouth daily. 05/11/2012 Active oxybutynin chloride (DITROPAN) 5 mg tablet Take 5 mg by mouth daily. 12/12/2013 Active polyethylene glycol 3350 (MIRALAX) 17 gram/dose Powder Mix 1 scoop (17 g) in 8 oz of water and drink daily. 08/15/2017 Active rivaroxaban (XARELTO) 10 mg Tablet Take 10 mg by mouth daily. Active rOPINIRole (REQUIP) 5 mg Tablet Take 5 mg by mouth daily at bedtime. 05/11/2012 Active sitaGLIPtin-metFORMI N (JANUMET) 50-1,000 mg tablet Take 1 Tablet by mouth two times daily, before breakfast and bedtime. Active Active Problems Problem Noted Date Diagnosed Date Syncope 09/29/2017 Social History Tobacco Use Types Packs/Day Years [...] Reading Time Taken Comments Blood Pressure 128/82 09/30/2017 1:31 PM CDT Pulse 73 09/29/2017 8:19 PM CDT Temperature 36.7 ??C (98 ??F) 09/30/2017 1:31 PM CDT Respiratory Rate 14 09/30/2017 1:31 PM CDT Oxygen Saturation 99% 09/30/2017 1:31 PM CDT Inhaled Oxygen Concentration - - Weight 122.5 kg (270 lb) 09/29/2017 1:41 AM CDT Height 154.9 cm (5' 1 ) 09/29/2017 1:41 AM CDT Body Mass Index 51.02 09/29/2017 1:41 AM CDT Plan of Treatment Health Maintenance Due Date Last Done Comments PNEUMOCOCCAL VACCINE 65+ YEA RS (1 of 2 - PCV) 1962 DIABETES ANNUAL FOOT EXAM 1974 DIABETES ANNUAL RETINAL EXAM 1974 DIABETES MICROALBUMIN ANNUAL SCREEN 1974 BREAST CANCER SCREENING 1996 COLORECTAL SCREENING 2001 Colorectal Cancer Screening 2001 FIT-DNA Q 3 years 2001 FIT/FOBT Q 1 year 2001 Flex Sig/CT Colonography Q 5 years 2001 ZOSTER VACCINE (1 of 2) 2006 RSV VACCINE (60+ or ) (1 - Risk 60-74 years 1-dose series) 2016 LDL CHOLESTEROL ANNUAL 09/28/2018 09/28/2017 OSTEOPOROSIS SCREENING 2021 DIABETES HBA1C Q 6 MONTHS 06/25/20232022, 10/31/2021, 09/28/2017 INFLUENZA VACCINE (#1) 2023 3, 01/03/2022, 05/04/2021, Additional history exists DTAP/TDAP/TD VACCINES (2 - T d or Tdap) 02/22/2026 02/23/2016 Procedures Procedure Name Priority Date/Time Associated Diagnosis Comments LIPID PANEL Routine 09/28/2017 8:41 PM CDT HEMOGLOBIN A1C Routine 09/28/2017 8:41 PM CDT from Last 3 Months or Most Recently Relevant to Health Maintenance Results * (ABNORMAL) HEMOGLOBIN A1C (09/28/2017 8:41 PM CDT) HEMOGLOBIN A1C 8.1(H) 4.0 - 6.0 % 09/29/2017 10:28 AM CDT [facility] EST. AVG GLUCOSE, A1C 186 mg/dL 09/29/2017 10:28 AM CDT [facility] [employer] [facility] Blood Venipuncture / Unknown 09/28/2017 8:41 PM CDT 09/28/2017 8:46 PM CDT Narrative [facility] - 09/29/2017 10:28 AM CDT HGB A1C INTERPRETATION NORMAL: ? <5.7% PRE-DIABETES: 5.7 - 6.4% DIABETES: ? 6.5% OR GREATER Francisco Castaneda MD CHEMISTRY ORDERABLES [facility] [employer] [facility]# [id number] [address] [facility] [place] [address] * (ABNORMAL) LIPID PANEL (09/28/2017 8:41 PM CDT) CHOLESTEROL 174 <200 mg/dL 09/30/2017 2:45 AM CDT [facility] [employer] [facility] TRIGLYCERIDE 109 <150 mg/dL 09/30/2017 2:45 AM CDT [facility] HDL 45 40 - 59 mg/dL 09/30/2017 2:45 AM CDT [facility] LDL CALCULATED 107(H) <100 mg/dL 09/30/2017 2:45 AM CDT [facility] [employer] [facility] NON-HDL CHOLESTEROL 129 <130 mg/dL 09/30/2017 2:45 AM CDT [facility] [employer] Blood Venipuncture / Unknown 09/28/2017 8:41 PM CDT 09/28/2017 8:46 PM CDT Narrative [facility] [employer] [facility] - 09/30/2017 2:45 AM CDT TOTAL CHOLESTEROL ??mg/dL ??Desirable <200 ??Borderline high 200-239 ??High >=240 TRIGLYCERIDES ??mg/dL ??Normal <150 ??Borderline high 150-199 ??High 200-499 ??Very high >=500 HDL CHOLESTEROL ??mg/dL ??Low <40 ??Normal 40-59 ??Desirable >=60 NON HDL CHOLESTEROL mg/dL ??Optimal <130 ??Near Optimal 130-159 ??Borderline High 160-189 ??Very High >=190 Calculated LDL mg/dL ??Optimal <100 ??Near Optimal 100-129 ??Borderline High 130-159 ??High 160-189 ??Very High >=190 ATPIII Guidelines Reference Ranges for Lipid Panels (NCEP/AMA) Francisco Castaneda MD CHEMISTRY ORDERABLES [facility] [employer] [facility]# [id number] [address] [place] [id number] from Last 3 Months or Most Recently Relevant to Health Maintenance Advance Directives For more information, please contact: [phone] * Full Code (Latest Code Status on File) Date Activated Date Inactivated Comments 09/29/2017 7:45 AM 09/30/2017 9:14 PM * Full Code Date Activated Date Inactivated Comments 09/29/2017 1:25 AM 09/29/2017 7:45 AM Care Teams Annealer Relationship Specialty Start Date End Date Justen Gale MD [address] [facility] [address] [place] [address] PCP - General Cardiovascular Disease 09/14/17
--- OUTSIDE RECORDS SUMMARY | 2024-04-26 04:55 | XMS_ITS | Encounter Summary ---
Author Organization [facility] Address [address] [place] [address] Care Team Providers Care Crna Name Role Phone Justen Gale MD Primary Care Provider [phone] Reason for Visit * Reason Comments Loss of Consciousness pt has not felt g ood' all day. Pt felt herself get dizzy, her knees buckled and had fall+ LOC. continues to feel like she is going to pass out. Pt has twinges of pain in her chest. +SOB. Pt cannot get comfortable. Pt a/o x 4, room air, vss * Auth/Cert Specialty Diagnoses / Procedures Referred By Elyssa benavides Referred To Contact [facility] [address] [place] [address] Referral ID Status Reason Start Date Expiration Date Visits Re quested Visits Authorized [id number] 09/29/2017 10/30/2018 1 Encounter Details Date Type Department Care Team (Late st Contact Info) Description 09/28/2017 9:22 PM CDT - 09/30/2017 5:26 PM CDT Emergency [facility] Neurology [address] [place] [address] Vitaliy Boykin MD [address] [place] [address] Veena Ferraro MD [address] [address] Francisco Castaneda MD [address] [place] [id number] De Monterroso MD [address] [place] [id number] Syncope Discharge Disposition: Home or Self Care Social [...] Mass Index 51.02 09/29/2017 1:41 AM CDT documented in this encounter Discharge Summaries * De Monterroso MD - 09/30/2017 12:57 PM CDT Images from the original note were not included. [facility] Adult Hospitalist Discharge Summary Mohsen aMrques 62 y.o. female 1955 CSN: [id number] Date of Admission: 09/28/2017 Date of Discharge: 09/30/2017 Discharging Physician: De Monterroso MD LOS: 0 days PCP: Justen Gale MD Activity: activity as tolerated. Dispo: home Diet: Regular diet Code Status at Discharge: FULL Wound Care: None needed >30 Minutes spent in the d/c process today. Admitting Dx and Chief Complaint Chief Complaint Patient presents with ??? Loss of Consciousness pt has not felt good' all day. Pt felt herself get dizzy, her knees buckled and had fall+ LOC. continues to feel like she is going to pass out. Pt has twinges of pain in her chest. +SOB. Pt cannotget comfortable. Pt a/o x 4, room air, vss Syncope Discharge Diagnoses and Relevant Hospital Course: Principal Problem: Syncope Mohsen Marques is a 62 y.o. female Presented with feeling dizzy , chest pain felt like passing out/ falling And knees buckling. She was admitted and monitored on telemetry. Her tropes were negative??2 EKG without any acute changes. Chest x-ray with some suggestion of early fluid overload. Her proBNP was 50 no other signs of overt volume overload. She could not complete stress echo due to back pain. Underwent nuclear medicine stress test that does not reveal any ischemia. Her blood pressure was labile but no signs of orthostasis. Remained on room air. EF on echo NL . less likely CHF with low normal BNP And no e/o overt volume overload will not initiate any diuretics.her BP labile but now trending on high normal side. Will resume lisinopril .No arrhythmia noted. Will need cont out pat fup . Syncope : ? Vasovagal.BP low normal on admissionbut improvign. Resume home lisinopril. Echo with -D dimer WNL, no concern for PE on xarelto. She remained on RA ?? chest pressure : atypical, will with risk factors (HTN, DM) as above s/p Nm stress test ?? 3, DM : A1C 8.1. Diet and life style modification advised. Cont out pat fup . ?? 4 h/p PE onn xarelto 5, h/o breast cancer on Aromasin 6, chronic low back pain Discharge medications and new prescriptions: Medication List CONTINUE taking these medications exemestane 25 mg Tablet Commonly known as: AROMASIN Take 25 mg by mouth daily. Refills: 0 HYDROcodone-acetaminophen 5-325 mg tablet Commonly known as: NORCO Take 1 Tablet by mouth every 4 hours as needed for Pain, Break-Through. Max Daily Amount: 6 Tablets Signed by: Lester Boss MD Quantity: 12 Tablet Refills: 0 lisinopril 20 mg tablet Commonly known as: PRINIVIL Take 20 mg by mouth daily. Refills: 0 oxybutynin chloride 5 mg tablet Commonly known as: DITROPAN Take 5 mg by mouth daily. Refills: 0 polyethylene glycol 3350 17 gram/dose Powder Commonly known as: MIRALAX Mix 1 scoop (17 g) in 8 oz of water and drink daily. Refills: 0 REQUIP 5 mg Tablet Take 5 mg by mouth daily at bedtime. Refills: 0 Generic drug: rOPINIRole rivaroxaban 10 mg Tablet Commonly known as: XARELTO Take 10 mg by mouth daily. Refills: 0 sitaGLIPtin-metFORMIN 50-1,000 mg tablet Commonly known as: JANUMET Take 1 Tablet by mouth two times daily, before breakfast and bedtime. Refills: 0 ASK your doctor about these medications pregabalin 75 mg Capsule Commonly known as: LYRICA Take 1 Capsule (75 mg) by mouth every 12 hours for 14 days. Signed by: Lester Boss MD Quantity: 28 Capsule Refills: 0 Ask about: Should I take this medication? Consultants: None Brief Synopsis of Diagnostic Studies This Admission (Please see full report for details): Results for orders placed during the hospital encounter of 09/28/17 XR CHEST PA AND LATERAL 2 VW Impression IMPRESSION: Findings suggesting early fluid overload. DICTATION LOCATION: Location 1 - [facility] Echo : Left ventricle: The cavity size was normal. Wall thickness was normal. Global systolic function was normal by the biplane method of disks. LVEF 53%. Left ventricular diastolic function parameters were normal. - Left atrium: The atrium was normal in size. - Right ventricle: The cavity size was normal. Systolic function was normal. ?? - Pulmonary arteries: PA peak pressure: 24mm Hg (S). NM stress test: . No ischemic ST segment depression with Lexiscan infusion. 2. Normal myocardial perfusion imaging. No ischemia or infarction. 3. Normal gated SPECT, normal left ventricular wall motion, calculated EF 62%. 4. No prior study available for comparison. Labs and Studies from this Hospitalization Needing Follow Up: Discharge Lab Data (Please note date of lab as some may have preceeded admission) Lab Results Component Value Date/Time WBC 10.5 (H) 09/28/2017 08:41 PM HEMOGLOBIN 11.1 (L) 09/28/2017 08:41 PM HEMATOCRIT 36.1 09/28/2017 08:41 PM PLATELETS 346 09/28/2017 08:41 PM SODIUM 139 09/28/2017 08:41 PM CHLORIDE 101 09/28/2017 08:41 PM POTASSIUM 4.4 09/28/2017 08:41 PM CO2 26 09/28/2017 08:41 PM BUN 15 09/28/2017 08:41 PM CREATININE 0.69 09/28/2017 08:41 PM GLUCOSE 330 (H) 09/28/2017 08:41 PM INR 1.2 (H) 09/28/2017 08:41 PM AST 17 09/28/2017 08:41 PM ALT 17 09/28/2017 08:41 PM Discharge Exam: BP (!) 146/99 (BP Location: Right arm, Patient Position (BP): Standing) Comment: RN aware Pulse 73 Temp 98.2 ??F (36.8 ??C) (Oral) Resp 18 Ht 5' 1 (1.549 m) Wt 122.5 kg (270 lb) SpO2 96% BMI 51.02 kg/m?? Last documented weight: Weight: 122.5 kg (270 lb) (09/29/17 0141) Physical Exam: General Alert,obese, cooperative, no distress, appears stated age Lungs clear to auscultation bilaterally Heart regular rate and rhythm, S1, S2 normal, no murmur, click, rub or gallop Abdomen soft, non-tender, without masses or organomegaly Extremities Normal, no edema Skin Skin color, texture, turgor normal. No rashes or lesions Discharge Condition: stable. Follow-up: You must follow up with Justen Gale MD in NO MORE THAN 7 DAYS Signed: De Monterroso MD 09/30/2017, 12:57 PM documented in this encounter Discharge Instructions * Discharge Instructions* De Monterroso MD - 09/30/2017 5:30 PM CDT Your discharging physician is De Monterroso MD and may be reached at [phone] for any questions or concerns until you see your doctor. FOLLOW-UP Follow up with Justen Gale MD in 1 week(s). Keep a log of your BP and take it with you when you fu with Dr. Gale Prescriptions given? No SIGNS AND SYMPTOMS TO REPORT Contact your health care provider if you experience any of the following symptoms: shortness of breath or difficulty breathing or temperature greater than 101.5 F or any other concerning symptoms. Heart Patients: Weigh yourself everyday at the same time, with the same amount of clothing and after you have emptied your bladder. Keep a log of your daily weights and bring them with you to your physician appointments. Call your physician (*) if you have a weight gain of 3 pounds in one day (or 5pounds in 2+ days) or (*) if you have increased shortness of breath or (*) if you have swelling in your feet, belly or legs. <<<Call 911 or go to the nearest emergency room if you have increased shortness of breath or chest pain or discomfort that is not relieved by nitroglycerin. Smoking Exposure: [facility] encourages all patients to decrease risks associated with smoking and second hand smoke exposure. If you smoke you are advised to quit. Ask your health care provider for advice if you need assistance to stop smoking. Avoid second-hand smoke exposure and do not let people smoke in your home. Please call [phone], our pulmonary rehabilitation department, to learn more about options to reduce your risks. ACTIVITY Your activity level is: increase activity as tolerated and no smoking. DIET Your diet is: heart healthy WOUND CARE For your wound/incision: na. documented in this encounter Medications at Time of Discharge Medication Sig Dispensed Refills Start Date End Date exemestane (AROMASIN) 25 mg Tablet Take 25 mg by mouth daily. lisinopril (PRINIVIL) 20 mg tablet Take 20 mg by mouth daily. 05/11/2012 oxybutynin chloride (DITROPAN) 5 mg tablet Take 5 mg by mouth daily. 12/12/2013 polyethylene glycol 3350 (MIRALAX) 17 gram/dose Powder Mix 1 scoop (17 g) in 8 oz of water and drink daily. 08/15/2017 rivaroxaban (XARELTO) 10 mg Tablet Take 10 mg by mouth daily. rOPINIRole (REQUIP) 5 mg Tablet Take 5 mg by mouth daily at bedtime. 05/11/2012 sitaGLIPtin-metFORMIN (JANUMET) 50-1,000 mg tablet Take 1 Tablet by mouth two times daily, before breakfast and bedtime. HYDROcodone-acetaminoph en (NORCO) 5-325 mg tablet Take 1 Tablet by mouth every 4 hours as needed for Pain, Break-Through. Max Daily Amount: 6 Tablets 12 Tablet 09/14/2017 documented as of this encounter Progress Notes * Ishan Quiros RN - 09/30/2017 7:08 PM CDT Mohsen Marques will be discharged via wheelchair to home. Mohsen Marques is accompanied by spouseand will be transported via private vehicle. * Ishan Quiros RN - 09/30/2017 6:29 PM CDT Telemetry 3-17 discontinued by Ishan Quiros RN at 6:29 PM. Verified patient's name & room number with [employer] tech. * Marce Hawkins NP - 09/29/2017 8:20 PM CDT [facility] Called for: Received eticket requesting CPAP for LUL. Last Recorded Vitals: BP 121/72 (BP Location: Right arm, Patient Position (BP): Sitting) Pulse 73 Temp 98.1 ??F (36.7 ??C) (Oral) Resp 18 Ht 5' 1 (1.549 m) Wt 122.5 kg (270 lb) SpO2 98% BMI 51.02 kg/m?? Documentation/Intervention/Outcome: - CPAP ordered. Marce Hawkins NP Try our new night ticket system for eHospitalist calls. Submit an eTicket * Summer Pascual RN - 09/29/2017 2:58 PM CDT Non-Invasive Cardiology Lexiscan Test Protocol [facility] ORDERS ARE ENTERED ???PER PROTOCOL?? Enter the protocol in the patient???s electronic health record using smart[employer]: .lexiscanprotocol Nursing Communication Orders: Prior to testing and During test: o If not already initiated, insert 24-18 gauge peripheral IV to Saline lock with an extension set. o Prep patient???s chest using skin prep and place electrodes on patient. Patients with excessive chest hair may require shaving. o Continuous cardiac monitoring with BP and 12-Lead EKG every minute during the test. Recovery Period o Continuous EKG monitoring, BP and 12-Lead EKG every two (2) minutes post Lexiscan. Following this, observe without EKG monitoring until any symptoms resolve. o If during recovery the patient experiences severe headache, nausea/vomiting, severe abdominal pain, notify the physician to obtain an order for Aminophylline. Once administered, observe patient until complaint of symptoms resolve. Medication Orders: o Sodium chloride 0.9% (normal saline) flush 5 mLs PRN for saline lock or medication administration. o Lexiscan Test - Administer the following in the order listed: 1. Lexiscan (regadenosine) 0.4 mg IV over approximately ten (10) seconds, one time. 2. Flush with 5 mLs of Sodium Chloride 0.9% immediately after the injection of Lexiscan 3. Administer the radionuclide myocardial perfusion imaging agent 10-20 seconds after the saline flush. o Aminophylline 100mg IV PRN one time only, for side effects of Lexiscan administration: nausea, vomiting, chest pain, shortness of breath, blood pressure with systolic <90, headache, blurred vision, abdominal cramping, tachycardia, dizziness, or numbness to extremities. Initiating Department(s): 11/2008 Non-Invasive Cardiology Reviewed: 07/2012; 10/2013; 08/2013; 08/2014; 01/2016; 11/2016 Revised: 07/2012; 01/2016; 11/2016 Approved by: Medical Executive Committee, Nursing and Pharmacy and Therapeutics Date: 11/2016 * Jayro Castillo MD - 09/29/2017 2:47 AM CDT Called by RN. Pt admitted but unseen. Chest pain. Takes norco at home. AOx3. [place] ordered. documented in this encounter H&P Notes * Francisco Castaneda MD - 09/29/2017 7:48 AM CDT [facility] Adult Hospitalist Admission H & P Patient Name: Mohsen Marques Primary Care Doctor: Justen Gale MD Date of Admission: 09/28/2017 Date of Service: 09/29/2017 Chief Complaint: Syncope and fatigue HPI: Patient is a 62 y.o. female with a history of Diabetes, Breast cancer, HTN, Hypothyroidism, and PE on xarelto, remote h/o CHF , who presents to the Emergency Department who presents after a syncopalepisode. Her prior care was at [facility] where she was treated for breast cancer. She started to have some fatigue and lightheadedness since early yesterday. She felt that she might get dehydrated as she did quite a lot yard work and weather is hot. She got up from chair and she lost consciousness. She recovered within mins. However, she continues to have chest discomfort that is heavy/tight and SOB. She is admitted for further evaluation. She has no recent stress test. She has multiple PE on Xarelto. Her d dimer and trop X2 were negative. She cannot complete her stress test today due to back pain and will finish her NM stress test am. She reported a remote h/o CHF but detail is not clear.EKG non ischemic, but CXR suggestive of early fluid overload . Past Medical History: Past Medical History: Diagnosis Date ??? Breast cancer ??? Diabetes mellitus ??? HTN (hypertension) ??? Hyperthyroidism ??? LUL (obstructive sleep apnea) ??? Pulmonary embolus ??? RLS (restless legs syndrome) Past Surgical History: Past Surgical History: Procedure Laterality Date ??? HX CHOLECYSTECTOMY ??? HX HERNIA REPAIR ??? HX KNEE REPLACEMENT ??? HX MASTECTOMY Current Medications: Prior to Admission Medications Prescriptions Last Dose Informant Patient Reported? Taking? HYDROcodone-acetaminophen (NORCO) 5-325 mg tablet Unknown at Unknown time No No Sig: Take 1 Tablet by mouth every 4 hours as needed for Pain, Break-Through. Max Daily Amount: 6 Tablets exemestane (AROMASIN) 25 mg Tablet 09/27/2017 Yes No Sig: Take 25 mg by mouth daily. lisinopril (PRINIVIL) 20 mg tablet 09/27/2017 Yes Yes Sig: Take 20 mg by mouth daily. oxybutynin chloride (DITROPAN) 5 mg tablet 09/27/2017 Yes Yes Sig: Take 5 mg by mouth daily. polyethylene glycol 3350 (MIRALAX) 17 gram/dose Powder 09/27/2017 Yes Yes Sig: Mix 1 scoop (17 g) in 8 oz of water and drink daily. pregabalin (LYRICA) 75 mg Capsule No No Sig: Take 1 Capsule (75 mg) by mouth every 12 hours for 14 days. rOPINIRole (REQUIP) 5 mg Tablet 09/28/2017 Yes Yes Sig: Take 5 mg by mouth daily at bedtime. rivaroxaban (XARELTO) 10 mg Tablet 09/27/2017 Yes No Sig: Take 10 mg by mouth daily. sitaGLIPtin-metFORMIN (JANUMET) 50-1,000 mg tablet 09/28/2017 Yes No Sig: Take 1 Tablet by mouth two times daily, before breakfast and bedtime. Facility-Administered Medications: None Medication Allergies: Allergies Allergen Reactions ??? Oxycodone Nausea and Vomiting ??? Reglan [Metoclopramide Hcl] Unknown ??? Rocephin [Ceftriaxone] Anaphylaxis Family History: No family history on file. Social History: Social History Substance Use Topics ??? Smoking status: Never Smoker ??? Smokeless tobacco: Never Used ??? Alcohol use No Review of Systems: Gen: No fever or chills Eyes: No visual changes Ears: No change in hearing Endocrine: No heat or cold intolerance Pulm: No cough or SOB Cardiac: No chest pain or orthopnea GI: No nausea, vomiting, constipation or diarrhea : No hematuria, urgency or frequency Musculoskeletal: No pain or weakness Neuro: No numbness or tingling Psych: No anxiety or depression Skin: No rashes or eruptions All other ROS reviewed and are negative Physical Exam: Patient Vitals for the past 8 hrs: BP Temp Temp src Pulse Resp SpO2 Height Weight 09/29/17 0402 118/72 98.2 ??F (36.8 ??C) Oral 82 22 98 % - - 09/29/17 0141 - - - - - - 5' 1 (1.549 m) 122.5 kg (270 lb) 09/29/17 0112 116/70 97.8 ??F (36.6 ??C) Oral 80 22 99 % 5' 1 (1.549 m) 127 kg (280 lb) 09/29/17 0000 113/69 - - 82 18 93 % - - General: Alert, no distress. Heart: Regular rate and rhythm, S1, S2 normal, no murmur, click, rub or gallop. Lungs: Clear to auscultation bilaterally Abdomen: Soft, non-tender. Bowel sounds times four. No masses, No organomegaly. Extremities: No clubbing, cyanosis or edema Skin: Skin color, texture, turgor normal. No rashes or lesions. Warm and dry. Head: Normocephalic, atraumatic Neck: Supple, symmetrical, trachea midline, no adenopathy. Neuro: CNII-XII intact. Normal strength, sensation and reflexes throughout. Data Base: Lab: Results for orders placed or performed during the hospital encounter of 09/28/17 (from the past 24 hour(s)) CBC WITH DIFFERENTIAL Result Value Ref Range WBC 10.5 (H) 4.0 - 9.8 K/uL RBC 4.15 3.90 - 4.90 M/uL HEMOGLOBIN 11.1 (L) 11.8 - 14.8 g/dL HEMATOCRIT 36.1 35.5 - 44.0 % MCV 87.0 82.0 - 99.0 fL MCH 26.7 (L) 27.2 - 32.6 pg MCHC 30.7 (L) 31.5 - 35.5 g/dL RDW 15.1 (H) 11.5 - 14.5 % RDW-STDEV 48.3 37.1 - 48.7 fL PLATELETS 346 140 - 350 K/uL MPV 9.6 9.3 - 12.4 fL NEUTROPHILS 67 % LYMPHOCYTES 22 % MONOCYTES 8 % EOSINOPHILS 3 % BASOPHILS 0 % IMMATURE GRANULOCYTES 0 % NEUTROPHIL ABSOLUTE 7.02 (H) 1.90 - 7.00 K/uL LYMPHOCYTE ABSOLUTE 2.25 0.70 - 4.50 K/uL MONOCYTE ABSOLUTE 0.83 0.10 - 1.30 K/uL EOSINOPHIL ABSOLUTE 0.28 0.00 - 0.70 K/uL BASOPHILS ABSOLUTE 0.03 0.00 - 0.20 K/uL IMMATURE GRANULOCYTES ABSOLUTE 0.04 (H) 0.00 - 0.03 K/uL COMPREHENSIVE METABOLIC PANEL Result Value Ref Range SODIUM 139 136 - 145 mmol/L POTASSIUM 4.4 3.5 - 5.0 mmol/L CHLORIDE 101 98 - 107 mmol/L CO2 26 22 - 29 mmol/L CALCIUM 9.2 8.6 - 10.2 mg/dL BUN 15 8 - 23 mg/dL CREATININE 0.69 0.51 - 0.95 mg/dL GLUCOSE 330 (H) 74 - 99 mg/dL TOTAL PROTEIN 7.9 6.7 - 8.6 g/dL ALBUMIN 3.5 3.5 - 5.2 g/dL BILIRUBIN TOTAL 0.3 0.2 - 1.1 mg/dL ALKALINE PHOSPHATASE 76 35 - 104 U/L AST 17 <33 U/L ALT 17 <34 U/L GFR >60 >=60 mL/min/1.73 sq meter GFR, >60 >=60 mL/min/1.73 sq meter ANION GAP 12 8 - 16 mmol/L TSH Result Value Ref Range TSH 1.80 0.27 - 4.20 uIU/mL PROTIME-INR Result Value Ref Range PROTIME 14.8 12.7 - 15.1 Seconds INR 1.2 (H) 0.9 - 1.1 PTT Result Value Ref Range PTT 29.0 24.4 - 36.4 seconds TROPONIN Result Value Ref Range TROPONIN T <0.01 <0.04 ng/mL BRAIN NATRIURETIC PEPTIDE, BNP OR PROBNP Result Value Ref Range PROBNP, N TERMINAL <50 <124 pg/mL POC GLUCOSE Result Value Ref Range POC GLUCOSE 339 (H) 74 - 99 mg/dL COMMENT, GLU POC Notified RN/MD TRANSPORT SPECIALIST NAME JOAQUÍN EDWARD URINALYSIS WITH REFLEX MICROSCOPIC Result Value Ref Range COLOR UA Yellow Pale to Dark Yellow CLARITY UA Clear Clear SPECIFIC GRAVITY UA 1.017 1.003 - 1.035 PH UA 5.0 5.0 - 8.0 LEUKOCYTE ESTERASE UA Trace (A) Negative NITRITE UA Negative Negative PROTEIN UA Negative Negative GLUCOSE UA 3+ (A) Negative KETONES UA Negative Negative UROBILINOGEN UA Normal <2.0 mg/dL BILIRUBIN UA Negative Negative BLOOD UA 1+ (A) Negative WBC UA 3-5 (A) 0 - 2 /hpf RBC UA 0-2 0 - 2 /hpf BACTERIA UA Negative Negative /hpf EPITHELIAL CELLS, URINE 0-5 0 - 5 /hpf ECG personally reviewed: SR non specific T wave Chest X ray personally reviewed: FINDINGS: AP upright and lateral views of the chest demonstrate the heart to be at the upper limits of normal in size. Mild prominence of the central pulmonary vasculature is noted with bibasilar interstitial prominence. The conglomerate of findings suggests early fluid overload. No focal infiltrate or consolidation is seen. No pneumothorax is evident. ? IMPRESSION: Findings suggesting early fluid overload. ?? Assessment and Plan: 1. Principal Problem: 2. Syncope 3. 1, syncope -suspect this is from orthostatic or vasovagal -hold her [employer] lisinopril as her BP okay -check orthostatic -syncope pathway -will need echo (no recent one) to r/o structure heart dz -D dimer WNL, no concern for PE 2, chest pressure -atypical, will with risk factors (HTN, DM) will need stress test -did not finish today, will attempt am 3, DM -hold oral DM meds, SSI here -A1C 8.1! -will need better BG control after discharge 4 h/p PE onn xarelto 5, h/o breast cancer on Aromasin 6, low back pain, supportive, pain meds as needed 4. DVT Prophylaxis Xarelto 5. GI Prophylaxis: None 6. Code status Full Code 7. Disposition: tbd 8. Francisco Castaneda MD documented in this encounter Procedure Notes * ALEJA BARRIOS - 09/30/2017 11:41 AM CDT Non-Invasive Cardiology Lexiscan Test Protocol [facility] ORDERS ARE ENTERED ???PER PROTOCOL?? Enter the protocol in the patient???s electronic health record using smartphrase: .lexiscanprotocol Nursing Communication Orders: Prior to testing and During test: o If not already initiated, insert 24-18 gauge peripheral IV to Saline lock with an extension set. o Prep patient???s chest using skin prep and place electrodes on patient. Patients with excessive chest hair may require shaving. o Continuous cardiac monitoring with BP and 12-Lead EKG every minute during the test. Recovery Period o Continuous EKG monitoring, BP and 12-Lead EKG every two (2) minutes post Lexiscan. Following this, observe without EKG monitoring until any symptoms resolve. o If during recovery the patient experiences severe headache, nausea/vomiting, severe abdominal pain, notify the physician to obtain an order for Aminophylline. Once administered, observe patient until complaint of symptoms resolve. Medication Orders: o Sodium chloride 0.9% (normal saline) flush 5 mLs PRN for saline lock or medication administration. o Lexiscan Test - Administer the following in the order listed: 1. Lexiscan (regadenosine) 0.4 mg IV over approximately ten (10) seconds, one time. 2. Flush with 5 mLs of Sodium Chloride 0.9% immediately after the injection of Lexiscan 3. Administer the radionuclide myocardial perfusion imaging agent 10-20 seconds after the saline flush. o Aminophylline 100mg IV PRN one time only, for side effects of Lexiscan administration: nausea, vomiting, chest pain, shortness of breath, blood pressure with systolic <90, headache, blurred vision, abdominal cramping, tachycardia, dizziness, or numbness to extremities. Initiating Department(s): 11/2008 Non-Invasive Cardiology Reviewed: 07/2012; 10/2013; 08/2013; 08/2014; 01/2016; 11/2016 Revised: 07/2012; 01/2016; 11/2016 Approved by: Medical Executive Committee, Nursing and Pharmacy and Therapeutics Date: 11/2016 * Peggy Morris RDCS - 09/30/2017 11:37 AM CDT Echocardiographic Image Enhancing Agent Definity (Perflutren Lipid Microsphere) Protocol [facility] ORDERS ARE ENTERED ???PER PROTOCOL?? Enter the protocol in the patient???s electronic health record using [employer]: .definityprotocol Diagnostic Test Orders: 1. Verify patient does not meet any of these exclusion criteria ??? Allergy or hypersensitivity to Definity or octafluoropropane ??? Is or nursing 2. If patient states yes to any exclusion criteria, STOP THE PROCEDURE AND CONTACT Credentialed Provider 3. Patient meets at least one of these inclusion criteria ??? Credentialed provider request ??? Patient is technically difficult to image ([place] [employer] of Echocardi[employer] guidelines of 2or more segments within the apical views not discernable) ??? The question of left ventricular function has been raised 4. Educate patient or responsible green party on Definity indications and side effects. 5. Have emergency equipment available 6. Definity may be ordered by a credentialed provider, RN or food and beverage outlets manager 7. Enter Definity medication order per protocol and document using smartphrase .definityprotocol 8. Change procedure order to include contrast 9. Verify peripheral or central line IV access. If IV access not available a trained food and beverage outlets manager RupaliN may place peripheral IV access as appropriate for medication administration and follow Adult Flush Protocol. NOTE: Do NOT access dialysis catheter or arterial line catheter. 10. Activate Definity using the VialMix machine: o Vial of Definity should be vented prior to withdrawing medication o Dilute the Definity in a syringe with 8.7 ml Normal Saline to make 10 ml o Administer Definity in small increments as needed to enhance visualization up to a total of 10 mlof the diluted Definity 11. RN or trained food and beverage outlets manager may discontinue peripheral IV access when IV no longer required for treatment Medication Orders: ??? Perflutren Lipid microspheres (DEFINITY) 1.1 mg/mL injection, 2mL given IV intra-procedure, onetime only. Initiating Department(s): Pharmacy, Nursing, Noninvasive Cardiology Reviewed: 12/2010; 06/2011; 08/21/2011; 08/2014, 10/2015, 06/2016;05/2017 Revised: 12/2010; 06/2011; 08/21/2011; 08/2014, 10/2015; 06/2016 Approved by: [facility], Nursing, P&T, and Noninvasive Cardiology Date:05/2017 documented in this encounter ED Notes * Patricia Mcgrath RN - 09/28/2017 10:36 PM CDT Pt to Xray at this time * Patricia Mcgrath RN - 09/28/2017 10:00 PM CDT Pt to Xray at this time * Patricia Mcgrath RN - 09/28/2017 9:53 PM CDT Pt reports feeling SOB. aware. * Patricia Mcgrath RN - 09/28/2017 9:40 PM CDT 62 yr old pt arrives to the ED via triage with complaints of loss of consciousness. Pt reports I was feeling off all day, it was unusual. I did what I usually did, got up, went to water my garden. Ithink I passed out because it was hot outside. S/S started today. Pt reports feeling SOB with talking and activity. Pt also reports feeling dizzy and needing to hold onto the wall and furniture right before passing out. Pt speaks in 2-3 word sentences. Airway intact, even and unlabored. Skin is pwd. * Radha Martines RN - 09/28/2017 8:25 PM CDT Emergency Department Adult Syncope Protocol [facility] ORDERS ARE ENTERED ???PER PROTOCOL?? Nursing Orders: o Insert peripheral IV o Keep NPO Laboratory Orders: o CBC with diff ([id number]) o CMP (LAB17) o TSH Reflexive ([id number]) o Urinalysis with Reflex Microscopy ([id number]) o If female of childbearing age: POC Urine HCG (POC7) or HCG Qualitative urine (SQV962) if sending to lab o POC Glucose (POC10) o PT/INR ([id number]) if on Coumadin Diagnostic Test Orders: o EKG (EKG1) - be sure to include indication Medication Orders: o Sodium chloride 0.9% (normal saline) flush 5 mLs every 8 hours o Sodium chloride 0.9% (normal saline) flush 5 mLs PRN for saline lock or medication administration Other Treatments: o O2 to keep oxygen saturation above 90% Initiating Department(s): Adult Emergency Department Reviewed: 02/03, 04/06; 07/2014, 08/2015, 08/2016, 03/2017 Revised: 04/06; 07/2014, 08/2015, 08/2016, 03/2017 Revised by: Brigitte Atkinson RN, BSN, DAVID Nurse Rn Pacu Approved by: Medical Executive Committee, Nursing, Pharmacy & Therapeutics Date: 03/2017 * Vitaliy Boykin MD - 09/28/2017 6:51 PM CDT HISTORY OF PRESENT ILLNESS Mohsen Marques, a 62 y.o. female presents to the ED with a Chief Complaint of Loss of Consciousness Subjective 9:31 PM: Mohsen Marques is a 62 y.o. female with a history of Diabetes, Breast cancer, HTN, Hypothyroidism, and PE, who presents to the Emergency Department who presents after a syncopal episode. Ptc/o increasing fatigue since this morning. She states that when she was attempting to stand her legs buckled and she fell . +LOC. Pt reports having light headedness/dizziness before the fall. Pt still reports chest discomfort that is heavy/tight and SOB. No n/v/d, leg swelling, or urinary problems. Pt is on Xarelto for hx of PE. Physician(s): Justen Gale MD History provided by: The patient Arrived by: Private vehicle Loss of Consciousness Presenting symptoms: no confusion Severity: Moderate Most recent episode: Today Episode history: Single Timing: Rare Progression: Unable to specify Chronicity: New Associated symptoms: light-headedness Associated symptoms: no abdominal pain, no fever, no headaches, no nausea, no rash, no vomiting andno weakness REVIEW OF SYSTEMS Review of Systems Constitutional: Negative for chills, fatigue and fever. HENT: Negative for congestion and sore throat. Eyes: Negative for pain. Respiratory: Negative for cough, shortness of breath and stridor. Cardiovascular: Positive for chest pain ( heavy/tightness ). Negative for leg swelling. Gastrointestinal: Negative for abdominal pain, diarrhea, nausea and vomiting. Genitourinary: Negative for dysuria. Musculoskeletal: Negative for back pain, joint swelling and neck pain. Skin: Negative for rash and wound. Neurological: Positive for dizziness, loss of consciousness, syncope and light- headedness. Negativefor weakness and headaches. Psychiatric/Behavioral: Negative for behavioral problems, confusion and suicidal ideas. PAST MEDICAL HISTORY REVIEWED MEDICAL: Patient has [...] MEDICATIONS Patient's Home Medications Current Home Medications EXEMESTANE (AROMASIN) 25 MG TABLET HYDROCODONE-ACETAMINOPHEN (NORCO) 5-325 MG TABLET LISINOPRIL (PRINIVIL) 20 MG TABLET OXYBUTYNIN CHLORIDE (DITROPAN) 5 MG TABLET POLYETHYLENE GLYCOL 3350 (MIRALAX) 17 GRAM/DOSE POWDER PREGABALIN (LYRICA) 75 MG CAPSULE RIVAROXABAN (XARELTO) 10 MG TABLET ROPINIROLE (REQUIP) 5 MG TABLET SITAGLIPTIN-METFORMIN (JANUMET) 50-1,000 MG TABLET Medications Modified during this Encounter Medications Discontinued during this Encounter Objective PHYSICAL EXAM INITIAL VS BP: 139/69 (09/28/171904), Heart Rate: 87 bpm (09/28/171904), Resp: 18 (09/28/171904), Temp: 98.3 ??F (36.8 ??C) (09/28/171904), Temp src: Oral (06/07/18 1905), SpO2: 100 % (09/28/171904), Height: 5' 1 (154.9 cm) (09/28/171904), Weight: 120.2 kg (265 lb) (09/28/171904), BMI (Calculated): 50.1 (09/28/171904) No LMP recorded. Patient is postmenopausal. Physical Exam Constitutional: She is oriented to person, place, and time. HENT: Head: Normocephalic and atraumatic. Eyes: Conjunctivae [...] No cranial nerve deficit or sensory deficit. GCS eye subscore is 4. GCS verbal subscore is 5. GCS motor subscore is 6. Skin: Skin is warm and dry. No erythema. Psychiatric: She has a normal mood and affect. Her behavior is normal. Nursing note and vitals reviewed. DIAGNOSTICS LAB: CBC WITH DIFFERENTIAL - Abnormal Result Value WBC 10.5 (*) RBC 4.15 HEMOGLOBIN 11.1 (*) HEMATOCRIT 36.1 MCV 87.0 MCH 26.7 (*) MCHC 30.7 (*) RDW 15.1 (*) RDW-STDEV 48.3 PLATELETS 346 MPV 9.6 NEUTROPHILS 67 LYMPHOCYTES 22 MONOCYTES 8 EOSINOPHILS 3 BASOPHILS 0 IMMATURE GRANULOCYTES 0 NEUTROPHIL ABSOLUTE 7.02 (*) LYMPHOCYTE ABSOLUTE 2.25 MONOCYTE ABSOLUTE 0.83 EOSINOPHIL ABSOLUTE 0.28 BASOPHILS ABSOLUTE 0.03 IMMATURE GRANULOCYTES ABSOLUTE 0.04 (*) COMPREHENSIVE METABOLIC PANEL - Abnormal SODIUM 139 POTASSIUM 4.4 CHLORIDE 101 CO2 26 CALCIUM 9.2 BUN 15 CREATININE 0.69 GLUCOSE 330 (*) TOTAL PROTEIN 7.9 ALBUMIN 3.5 BILIRUBIN TOTAL 0.3 ALKALINE PHOSPHATASE 76 AST 17 ALT 17 GFR >60 GFR, >60 ANION GAP 12 PROTIME-INR - Abnormal PROTIME 14.8 INR 1.2 (*) POC GLUCOSE - Abnormal POC GLUCOSE 339 (*) COMMENT, GLU POC Notified RN/MD TRANSPORT SPECIALIST NAME JOAQUÍN EDWARD TSH - Normal TSH 1.80 PTT - Normal PTT 29.0 TROPONIN - Normal TROPONIN T <0.01 BRAIN NATRIURETIC PEPTIDE, BNP OR PROBNP - Normal PROBNP, N TERMINAL <50 URINALYSIS WITH REFLEX MICROSCOPIC POC GLUCOSE RADIOLOGY: XR CHEST PA AND LATERAL 2 VW XR CHEST PA AND LATERAL 2 VW Radiologist Impression IMPRESSION: Findings suggesting early fluid overload. DICTATION LOCATION: Location 1 - [facility] EKG: NSR rate 94, No acute changes noted. PROCEDURES Procedures MEDICAL DECISION MAKING AND PLAN OF CARE On initial exam, discussed plan review lab, chest XR and EKG results. 9:20 PM: Discussed with CURTIS Sheppard, for Dr. Ferraro ([facility] Hospitalist[facility] 10:53 PM Updated patient on results, diagnosis, and plan for admission. Patient agrees with the plan. The opportunity for questions was given and questions were answered to the patient's satisfaction. All questions and concerns have been addressed. ED provider and ED nurse verbally discussed patient plan of care at this time. MDM Summary Statement: 62 year old female who presents with multiple complaints including fatigue, syncope, shortness of breath, and chest pain. Patient's labs are unremarkable. EKG is normal. Patient will be admitted to Telemetry for further workup. Diagnostic Considerations: Consideration of cause of patient's symptoms includes: CHF, pulmonary edema, arrythmia, pneumonia, asthma/COPD exacerbation, ACS, PE, GI, allergic reaction, anxiety, pericardial disease, other pulmonary causes but some are unlikely due to patients description and exam. I have reviewed previous: notes and labs I have reviewed current: labs, ECG and imaging I have reviewed nursing notes related to past medical history, social history, and review of systems and agree, unless otherwise noted. Consults: hospitalist . New Prescriptions for this Encounter LAST VS BP: 110/64 (09/28/172219), Heart Rate: 88 bpm (09/28/172219), Resp: 18 (09/28/172219), Temp: 98.3 ??F (36.8 ??C) (09/28/171904), Temp src: Oral (09/28/171904), SpO2: 95 % (09/28/172219) CLINICAL IMPRESSION Final diagnoses: [R55] Syncope, unspecified syncope type (Primary) [R07.9] Chest pain, unspecified type [R53.81, R53.83] Malaise and fatigue [R06.02] SOB (shortness of breath) DISPOSITION, EDUCATION AND MEDICATION RECONCILIATION Medications reconciled. See after visit summary for patient education on discharged patients. ED Disposition ED Disposition Condition User Date/Time Comment Admit Stable Vitaliy Boykin MD [facility] Sep 28, 2017 10:49 PM Disposition: Patient admitted to the telemetry floor in stable condition. ATTESTATION STATEMENTS This note has been prepared by Semaj Price acting as a scribe for Dr. Vitaliy Boykin on 09/28/2017 at 9:58 PM. The scribe's documentation has been prepared under my direction and personally reviewed by me, Dr. Vitaliy Boykin, in its entirety on 09/28/17 at 10:53 PM. I confirm that the note above accurately reflects all work, treatment, procedures, and medical decision making performed by me. documented in this encounter Miscellaneous Notes * Therapy Evaluation - Mohini Michaels, Occupational Therapist - 09/30/2017 4:00 PM CDT Occupational Therapy order received, chart reviewed, and evaluation completed. Please see full evaluation below for details. Daily OT notes will be located in Care Plan notes. Thank You. OT INITIAL EVALUATION Diagnosis: Syncope and fatigue MD: Loc Activity Order: Up with assist Weight Bearing Status: No restrictions Precautions: Fall PMH: ??RLS, Diabetes, Breast cancer, HTN, Hypothyroidism, and PE on xarelto ?? S: Patient reports 0/10 pain. 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 Pt does not drive. Pt will shop but uses a scooter to shop in store. Pt was ADL (I) and mobility (I) without device Home Equipment: wwr ? O: Appearance: Pt sitting on EOB Cognition/Perception: Alert and oriented X 3 UE ROM: WFL Muscle Tone: WFL UE Strength: WFL Coordination:WFL Feeding: (I) Grooming: (I) UE Dressing: (I) LE Dressing: (I)-socks lifting foot to edge of bed Toilet Transfer: (I) without device Functional Mobility: Pt able to ambulate to the bathroom without device-(I), no loss of balance noted, no c/o dizziness or lightheadedness Positioning after tx: Pt is sitting on bed with alarm on, all lines intact, and call light and needs in reach Patient/Family Education: Role of OT Equipment needed at d/c: none Equipment Loaned this date: none A: Pt is functioning at his prior level of care in ADL's and functional mobility. No further need for skilled OT indicated Recommend: Home with supervision P:D/C OT Zone #: [id number] * Therapy Evaluation - Miracle Souza Physical Therapist - 09/30/2017 3:08 PM CDT Physical Therapy order received, chart reviewed, and evaluation completed. Please see full evaluation below for details. Daily PT notes will be located in Care Plan notes. Thank You. PT INITIAL EVALUATION Diagnosis: Syncope/faTIGUE MD: Loc Activity Order: Up with assist Weight Bearing Status: No restrictions Precautions: Fall, PMH: Diabetes, Breast cancer, HTN, Hypothyroidism, and PE on xarelto, remote h/o CHF S: Patient reports 0/10 pain. 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: Lives with dtr in 1 level home does not need to go to basement for laundry uses wwr PRN, otherwise independent Home Equipment: wwr O: Appearance: Pt on EOB with telemtry Cognition/Perception: A and o x4 ROM: Bilateral Lower Extremity WFL Muscle Tone: WFL Strength: Bilateral Lower Extremity WFL Sensation: Occasional numbness/tingling in feet but not as present MOBILITY ASSESSMENT: Bed Mobility: All indepednet Transfers: All independent Gait: ambulated 150ft x 1 no device SBA --Gait Deviations: Slow andra but safe Balance: All good Stairs/Curb: 2 steps with 1 rail and 1 steps at a time all SBA Patient/Family Education: PT Plan of care pt understood Other: Pt SBA to independent and safe for DC home Positioning after tx: Pt back to EOB with call light in reach A: Disabilities: none Assessment: Pt safe for DC home with dtr Clinical Presentation: Stable and/or uncomplicated EVALUATION COMPLEXITY: Low Complexity -These findings are based on patient's self reporting, therapist's objective findings and professional determinations. Recommend: Home with supervision Recommendations were made on today's assessment. Additional recommendations will be based on patient's progress in therapy. P: PT eval done and pt is SBA/independent with all mobility . DC PT Recommendations: For: Patient, Nursing --OOB to chair with chair alarm, ambulate in room or hallway, with assist Equipment to be issued at DC: none --Patient involved in goal setting: yes Patient goals will be found in the Care Plan section of the medical chart. Zone #: [id number] * Care Plan - Marya Monsivais RCP - 09/30/2017 5:29 AM CDT Problem: NPPV/CPAP (Adult) Intervention: NPPV/CPAP Maintenance Events of the Shift: uneventful Pt using:home unit without oxygen 0. Pt :does need assistance with use. Pt understands to call RT for any CPAP/BiPAP needs. * Care Plan - Yeni Walter RN - 09/29/2017 6:55 PM CDT Assumed care at 1500. Patient in bed, dangling at bedside, asking if she can go home after she ate,stating she was hungry and didn't get to eat all day and will not have a ride home tomorrow if she is d/c. This RN spoke with patient and assured her that we will figure it all out for her and convinced her to stay for her test tomorrow. Patient stated she feels reassured and she will stay. C/o back pain and was unaware there was prn pain meds available; patient agreed to a Hamilton. Plan isfor her to repeat stress test tomorrow. Will continue to monitor. * Care Plan - Aislinn Villarreal RN - 09/29/2017 2:43 PM CDT Pt has been resting quietly all shift, had c/o chest pain Hamilton given x1 with stated relief. Pt hasbeen NPO for stress test this afternoon and is currently off the floor having it done. Might be able to change diet when she returns. * Care Plan - Maira Burgess RN - 09/29/2017 9:45 AM CDT [facility]: Adult and Obstetrics Day 1 ??? Patient, family, or healthcare designee is participating in individual care plan process Met Discharge Planning ??? Identify discharge needs upon admission and through discharge Progressing Initial Discharge Planning Assessment completed. Introductory Care Management letter given. Care Management visited with patient @ bedside, discussed Care Management role and discharge planning. Patient was admitted through the ED with syncopal episode, fatigue, chest pain, dizziness. Prior to admission, patient's functional level requiring assistance. Patient is not employed--disabled. She does not drive, ambulates with a WWR when feeling particularly weaker from the fibromyalgiastandpoint. Prior to admission, patient resided at home with her daughter Yunior Marques. Patient & are currently but he does assist as needed. Home is single story with a basement, 2 steps to enter. Patient does not access the basement. Prior to admission, patient received assistance with bathing, dressing, meal preparation, medications, order make up clerk, laundry, shopping, transportation from daughter, . Daughter Yunior is patient's paid caregiver under her IPA. Patient receives approximately 19 hrs/week for caregiver services under IPA. Durable medical equipment at home includes a WWR, CPAP, blood glucose machine. Patient reports thatshe usually checks her blood sugars daily. Patient has not had a stay at an acute care hospital in the last 30 days. Readmission Risk (patient becomes high risk with a score of 8 or greater) 0 Total Score Primary Emergency Contact: Yunior Marques(daughter) @ [phone]. PCP verified as Justen Gale MD. Patient's insurance verified as Payor: [employer] / Plan: [facility] MEDICARE COMPLETE PPO / Product Type: Medicare Managed Care & [place] [facility]/Medicaid. The patient's preferred pharmacy is [facility] in [place], [place]. Discussed discharge goals and possible discharge needs including home. Per patient, she plans to return home with her daughter @ DC. Family will be able to transport home @ DC. Care Management contact information provided. Observation letter completed @ this time with patient& copy to patient, copy to paper lite chart. Work up in progress--pending ECHO, stress test. Care Management will continue to follow and assist as needed. Italia Burgess RN [phone] * Care Tiffany - Yris Feliz RN - 09/29/2017 5:55 AM CDT Pt aol x4. Pt vss. Pt co off chest pain, norco relieved pain. * Tyrese Allen - Yris Feliz RN - 09/29/2017 1:51 AM CDT Tele was iniated on pt. Placed on tele 3-17, nsr * Care Plan - Yris Feliz RN - 09/29/2017 1:42 AM CDT Undress and Assess performed by:Yris Feliz Admission or upon transfer to:[id number] ~~~~~~~~~~~~~~~~~~~~~~~~~~~~ Is the patient a paraplegic/quadriplegic?no Does the patient have new purple/rah/dark red over bony prominences? no Does the patient have an ostomy?no Is the length of stay >2 weeks?no ~If ANY answer 'yes'- please consult~ Patient does not have skin breakdown. Wound care consult was not initiated. Location/ Description of breakdown: Apply Protective Dressings to Sacrum and Heels (Mepilex) as per Pathway Patient arrived to this room with the following belongings/valuables:(ie:dentures, hearing aids, glasses):wallet, given to security Patient arrived to this room with the following medical equipment/devices (ie: insulin pump, home CPAP, walker): All Jewelry removed from patient none Disposition of belongings/valuables: documented in this encounter Plan of Treatment Not on file documented as of this encounter Procedures Procedure Name Priority Date/Time Associated Diagnosis Comments TELEMETRY REPORT 10/03/2017 4:37 PM CDT TELEMETRY REPORT 10/01/2017 5:32 PM CDT POC GLUCOSE Routine 09/30/2017 5:39 PM CDT POC GLUCOSE Routine 09/30/2017 4:59 PM CDT OT EVAL AND TREAT Routine 09/30/2017 2:1 5 PM CDT PT EVAL AND TREAT Routine 09/30/2017 2:1 5 PM CDT POC GLUCOSE Routine 09/30/2017 2:08 PM CDT NM MYOCARD PERF IMAG SPECT MULT Routine 09/30/2017 1:12 PM CDT NM PHARMACOLOGICAL STRESS TEST Routine 09/30/2017 12:10 PM CDT ECHOCARDIOGRAM W/ CONTRAST AGENT Routine 09/30/2017 11:37 AM CDT POC GLUCOSE Routine 09/30/2017 8:07 AM CDT POC GLUCOSE Routine 09/30/2017 4:12 AM CDT POC GLUCOSE Routine 09/29/2017 11:59 PM CDT POC GLUCOSE Routine 09/29/2017 8:58 PM CDT POC GLUCOSE Routine 09/29/2017 4:47 PM CDT POC GLUCOSE Routine 09/29/2017 10:33 AM CDT D-DIMER Routine 09/29/2017 7:49 AM CDT TROPONIN Stat 09/29/2017 7:49 AM CDT URINALYSIS W/REFLEX MICROSCOPIC Stat 09/28/2017 10:57 PM CDT XR CHEST PA AND LATERAL 2 VW Stat 09/28/2017 10:07 PM CDT PULSE OXIMETRY, CONTINUOUS Stat 09/28/2017 9:39 PM CDT POC GLUCOSE Stat 09/28/2017 8:47 PM CDT CBC WITH DIFFERENTIAL Stat 09/28/2017 8:41 PM CDT PTT Stat 09/28/2017 8:41 PM CDT PROTIME-INR Stat 09/28/2017 8:41 PM CDT TROPONIN Stat 09/28/2017 8:41 PM CDT TSH Stat 09/28/2017 8:41 PM CDT BRAIN NATRIURETIC PEPTIDE, BNP OR PROBNP Stat 09/28/2017 8:41 PM CDT HEMOGLOBIN A1C Routine 09/28/2017 8:41 PM CDT LIPID PANEL Routine 09/28/2017 8:41 PM CDT COMPREHENSIVE METABOLIC PANEL Stat 09/28/2017 8:41 PM CDT EKG 12-LEAD Stat 09/28/2017 6:59 PM CDT documented in this encounter Results * TELEMETRY REPORT (10/03/2017 4:37 PM CDT) Provider Scanning ECG ORDERABLES * TELEMETRY REPORT (10/01/2017 5:32 PM CDT) Provider Scanning ECG ORDERABLES * (ABNORMAL) POC GLUCOSE (09/30/2017 5:39 PM CDT) GLUCOSE POC 171(H) 74 - 99 mg/dL 09/30/2017 5:52 PM CDT [facility] TRANSPORT SPECIALIST NAME POC ISHAN QUIROS (LJ) 09/30/2017 5:52 PM CDT [facility] Whole blood specimen (specimen) 09/30/2017 5:39 PM CDT 09/30/2017 5:52 PM CDT De Monterroso MD POINT OF CARE TESTELIZABETH Rodriguez Performing Organization Address City/[facility]/ZIP Co de Phone Number [facility] [employer] [facility] CLIA# [id number] [address] [place] [address] * (ABNORMAL) POC GLUCOSE (09/30/2017 4:59 PM CDT) GLUCOSE POC 187(H) 74 - 99 mg/dL 09/30/2017 5:11 PM CDT [facility] TRANSPORT SPECIALIST NAME POC MARCE VAUGHAN 09/30/2017 5:11 PM CDT [facility] Whole blood specimen (specimen) 09/30/2017 4:59 PM CDT 09/30/2017 5:11 PM CDT De Monterroso MD POINT OF CARE TESTELIZABETH Rodriguez [facility] [employer] [facility] CLIA# [id number] [address] [address] [address] * (ABNORMAL) POC GLUCOSE (09/30/2017 2:08 PM CDT) GLUCOSE POC 142(H) 74 - 99 mg/dL 09/30/2017 2:20 PM CDT [facility] TRANSPORT SPECIALIST NAME POC ISHAN QUIROS (LJ) 09/30/2017 2:20 PM CDT [facility] Whole blood specimen (specimen) 09/30/2017 2:08 PM CDT 09/30/2017 2:20 PM CDT De Monterroso MD POINT OF CARE TESTIN G [facility] [id number] [address] [place] [address] * NM MYOCARD PERF IMAG SPECT MULT (09/30/2017 1:12 PM CDT) 09/30/2017 1:13 PM CDT Impressions INTERFACE SYSTEM - 09/30/2017 1:44 PM CDT IMPRESSION: 1. No ischemic ST segment depression with Lexiscan infusion. 2. Normal myocardial perfusion imaging. No ischemia or infarction. 3. Normal gated SPECT, normal left ventricular wall motion, calculated EF 62%. 4. No prior study available for comparison. ? Narrative INTERFACE SYSTEM - 09/30/2017 1:44 PM CDT MYOCARDIAL PERFUSION IMAGING: ??TWO DAY PHARMACOLOGIC REST/STRESS LEXISCAN DATE OF PROCEDURE: 09/30/2017 1:12 PM HISTORY/INDICATION: ?? 62-year-old female with hypertension, diabetes mellitus, history of syncope presents for evaluation of chest pain and dyspnea. PROCEDURE: Intravenous access was established and 7.9 mCi of Tc-99m Myoview was injected. 30 minutes later, tomographic (SPECT) images were obtained. Following this, 0.4 mg of Lexiscan was injected intravenously over 10 seconds, with continuous electrocardiographic monitoring. ??The resting heart rate was 73 beats per minute. ??The resting blood pressure was 117/83 mm Hg. The resting electrocardiogram demonstrated sinus rhythm, early R/S transition considerably placement. ??The patient experienced chest tightness/dyspnea. ??The blood pressure response to Lexiscan 116/82 mm Hg. ??The electrocardiographic response to Lexiscan was negative for ischemic ST segment depression. No arrhythmias. Immediately following completion of Lexiscan infusion 23.8 mCi of Tc-99m Myoview was injected intravenously. 45 minutes later, gated tomographic (SPECT) images were obtained. 100 mg of Aminophylline was injected intravenously. ?? Findings: ??The overall quality of the study is good. ??Left ventricular cavity size is noted to be normal. ??SPECT images demonstrate normal myocardial perfusion imaging post stress and at rest. No reversible perfusion defects to suggest ischemia. Gated SPECT images demonstrate normal left ventricular wall motion. The left ventricular ejection fraction is calculated to be 62 %. ?? Procedure Note Steve Jensen MD - 09/30/2017 MYOCARDIAL PERFUSION IMAGING: TWO DAY PHARMACOLOGIC REST/STRESS LEXISCAN DATE OF PROCEDURE: 09/30/2017 1:12 PM HISTORY/INDICATION: 62-year-old female with hypertension, diabetes mellitus, history of syncope presents for evaluation of chest pain and dyspnea. PROCEDURE: Intravenous access was established and 7.9 mCi of Tc-99m Myoview was injected. 30 minutes later, tomographic (SPECT) images were obtained. Following this, 0.4 mg of Lexiscan was injected intravenously over 10 seconds, with continuous electrocardiographic monitoring. The resting heart rate was 73 beats per minute. The resting blood pressure was 117/83 mm Hg. The resting electrocardiogram demonstrated sinus rhythm, early R/S transition considerably placement. The patient experienced chest tightness/dyspnea. The blood pressure response to Lexiscan 116/82 mm Hg. The electrocardiographic response to Lexiscan was negative for ischemic ST segment depression. No arrhythmias. Immediately following completion of Lexiscan infusion 23.8 mCi of Tc-99m Myoview was injected intravenously. 45 minutes later, gated tomographic (SPECT) images were obtained. 100 mg of Aminophylline was injected intravenously. Findings: The overall quality of the study is good. Left ventricular cavity size is noted to be normal. SPECT images demonstrate normal myocardial perfusion imaging post stress and at rest. No reversible perfusion defects to suggest ischemia. Gated SPECT images demonstrate normal left ventricular wall motion. The left ventricular ejection fraction is calculated to be 62 %. IMPRESSION: 1. No ischemic ST segment depression with Lexiscan infusion. 2. Normal myocardial perfusion imaging. No ischemia or infarction. 3. Normal gated SPECT, normal left ventricular wall motion, calculated EF 62%. 4. No prior study available for comparison. Francisco Castaneda MD NM ORDERABLES INTERFACE SYSTEM Refer to clinic/hospital department * NM PHARMACOLOGICAL STRESS TEST (09/30/2017 12:10 PM CDT) Narrative 09/30/2017 12:10 PM CDT Order information only. ??Exam was auto-finalized. ?? Francisco Castaneda MD NM ORDERABLES * ECHOCARDIOGRAM W/ CONTRAST AGENT (09/30/2017 11:37 AM CDT) EJECTION FRACTION INTERFACE SYSTEM 09/30/2017 11:1 7 AM CDT Narrative INTERFACE SYSTEM - 09/30/2017 3:19 PM CDT [address] [address] [email or web address] Transthoracic Echocardiography Patient: ?Mohsen Marques MRN: ?[id number] Study ID: ? [id number] Gender: ? F : ?1955 Age: ?62 Race: ? CAU Height ?154.9cm Study Date: ? 09/30/2017 Weight: ? 122.5kg Access. #: ?[id number] Account #: ?[id number] BP: *Referring Physician:* Francisco Castaneda *Ordering Physician:* ??Francisco Castaneda [employer]eter: Indications: Chronic hypertension. ??Syncope / Near syncope. STUDY CONCLUSIONS: SUMMARY: - Left ventricle: The cavity size was normal. Wall thickness ??was normal. Global systolic function was normal by the ??biplane method of disks. LVEF 53%. Left ventricular ??diastolic function parameters were normal. - Left atrium: The atrium was normal in size. - Right ventricle: The cavity size was normal. Systolic ??function was normal. - Pulmonary arteries: PA peak pressure: 24mm Hg (S). Cardiac Anatomy: LEFT VENTRICLE: ??The cavity size was normal. Wall thickness was normal. Global systolic function was normal by the biplane method of disks. LVEF 53%. Wall motion was normal; there were no regional wall motion abnormalities. Left ventricular diastolic function parameters were normal. AORTIC VALVE: ?? Trileaflet; mildly thickened leaflets. Doppler: ?? No significant regurgitation. ?VTI ratio of LVOT to aortic valve: 0.67. Valve area (VTI): 1.34cm^2. Indexed valve area (VTI): 0.62cm^2/m^2. Peak velocity ratio of LVOT to aortic valve: 0.85. Valve area (Vmax): 1.71cm^2. Indexed valve area (Vmax): 0.79cm^2/m^2. ?Mean gradient (S): 4mm Hg. Peak gradient (S): 9mm Hg. AORTA: ??Aortic root: The aortic root was normal in size. MITRAL VALVE: ?? Mildly to moderately calcified annulus. Doppler: ?? No significant regurgitation. ?Peak gradient (D): 2mm Hg. LEFT ATRIUM: ??The atrium was normal in size. RIGHT VENTRICLE: ??The cavity size was normal. Systolic function was normal. PULMONIC VALVE: ?? Structurally normal valve. ?Doppler: No significant regurgitation. TRICUSPID VALVE: ?? Structurally normal valve. ?Doppler: Mild regurgitation. RIGHT ATRIUM: ??The atrium was normal in size. PERICARDIUM: ??There was no pericardial effusion. SYSTEMIC VEINS: Inferior vena cava: The vessel was normal in size. Measurements Left ventricle ? Value ?Reference LV ID, ED, PLAX chordal ??(L) ? 4.9 ?? cm ? 43.0 - 52.0 LV ID, ES, PLAX chordal ??(L) ? 3.6 ?? cm ? 23.0 - 38.0 LV fx shortening, PLAX ?? (L) ? 28 ?% ?>=29 chordal LV PW thickness, ED ?1.0 ?? cm ? IVS/LV PW ratio, ED ?(N) ? 0.78 ? <=1.3 LV end-diastolic volume, ? 120 ?? ml ? 2-p LV end-systolic volume, ?60 ?ml ? 2-p LV ejection fraction, ?50 ?% ? 2-p LV end-diastolic ? 56 ?ml/m^2 ?? volume/bsa, 2-p LV end-systolic ?28 ?ml/m^2 ?? volume/bsa, 2-p LV e', lateral ? 0.095 m/sec ? LV E/e', lateral ? 8 ? LV e', medial ?0.074 m/sec ? LV E/e', medial ?10 ? LV e', average ? 0.084 m/sec ? LV E/e', average ? 9 ? Ventricular septum ? Value ?Reference IVS thickness, ED ?0.8 ?? cm ? LVOT ? Value ?Reference LVOT ID, S ? 1.6 ?? cm ? LVOT area ?2 ? cm^2 ? LVOT peak velocity, S ?0.92 ??m/sec ? LVOT VTI, S ?10.8 ??cm ? Aortic valve ? Value ?Reference Aortic valve peak ?1.1 ?? m/sec ? velocity, S Aortic valve VTI, S ?16.2 ??cm ? Aortic mean gradient, S ?4 ? mm Hg ? Aortic peak gradient, S ?9 ? mm Hg ? VTI ratio, LVOT/AV ? 0.67 ? Aortic valve area, VTI ? 1.34 ??cm^2 ? Aortic valve area/bsa, ? 0.62 ??cm^2/m^2 VTI Velocity ratio, peak, ?0.85 ? LVOT/AV Aortic valve area, peak ?1.71 ??cm^2 ? velocity Aortic valve area/bsa, ? 0.79 ??cm^2/m^2 peak velocity Aorta ?Value ?Reference Aortic root ID ? 2.3 ?? cm ? Left atrium ?Value ?Reference LA ID, A-P, ES ? 3.9 ?? cm ? LA ID/bsa, A-P ? (N) ? 1.8 ?? cm/m^2 ?? <=2.2 LA volume, ES, 2-p ? 51 ?ml ? LA volume/bsa, ES, 2-p ? 24 ?ml/m^2 ?? Mitral valve ? Value ?Reference Mitral E-wave peak ? 0.75 ??m/sec ? velocity Mitral A-wave peak ? 0.82 ??m/sec ? velocity Mitral deceleration time (N) ? 218 ?? ms ? 150 - 230 Mitral peak gradient, D ?2 ? mm Hg ? Mitral E/A ratio, peak ? 0.92 ? Pulmonary arteries ? Value ?Reference PA pressure, S, DP ? (N) ? 24 ?mm Hg ?<=30 Tricuspid valve ?Value ?Reference Tricuspid regurg peak ?2.3 ?? m/sec ? velocity Tricuspid peak RV-RA ? 21 ?mm Hg ? gradient Systemic veins ? Value ?Reference Estimated CVP ?3 ? mm Hg ? Right ventricle ?Value ?Reference RV pressure, S, DP ? (N) ? 24 ?mm Hg ?<=30 Pulmonic valve ? Value ?Reference Pulmonic valve peak ?1.03 ??m/sec ? velocity, S Legend: (L) ??and ??(H) ??gustavo values outside specified reference range. (N) ??sanchez values inside specified reference range. Procedure data: Procedure information: ??Transthoracic echocardiography. Image quality was fair. The study was technically limited. Scanning was performed from the parasternal, apical, and subcostal acoustic windows. Intravenous contrast (Definity) was administered. ??Study completion: ??There were no complications. ?Transthoracic echocardiography. Complete 2D, complete spectral Doppler, and color Doppler. Birthdate: ??Patient birthdate: 1955. ??Age: ??Patient is 62yr old. ??Sex: ??Gender: female. ??Height: ??Height: 154.9cm. Height: 61in. ??Weight: ??Weight: 122.5kg. Weight: 269.4lb. Body mass index: ??BMI: 51kg/m^2. ??Body surface area: ?BSA: 2.15m^2. ??Study date: ??Study date: 09/30/2017. Study time: 11:17 AM. ?Prepared and Electronically Authenticated Justen Hampton [id number] Procedure Note Justen Hampton MD - 09/30/[address] [address] [email or web address] Transthoracic Echocardiography Patient: Mohsen Marques Study ID: [id number] Gender: F : 1955 Age: 62 Race: [facility] Height 154.9cm Study Date: 09/30/2017 Weight: 122.5kg Access. #: [id number] BP: *Referring Physician:* Francisco Castandea *Ordering Physician:* Francisco Castaneda [employer] Riveter: Indications: Chronic hypertension. Syncope / Near syncope. STUDY CONCLUSIONS: SUMMARY: - Left ventricle: The cavity size was normal. Wall thickness was normal. Global systolic function was normal by the biplane method of disks. LVEF 53%. Left ventricular diastolic function parameters were normal. - Left atrium: The atrium was normal in size. - Right ventricle: The cavity size was normal. Systolic function was normal. - Pulmonary arteries: PA peak pressure: 24mm Hg (S). Cardiac Anatomy: LEFT VENTRICLE: The cavity size was normal. Wall thickness was normal. Global systolic function was normal by the biplane method of disks. LVEF 53%. Wall motion was normal; there were no regional wall motion abnormalities. Left ventricular diastolic function parameters were normal. AORTIC VALVE: Trileaflet; mildly thickened leaflets. Doppler: No significant regurgitation. VTI ratio of LVOT to aortic valve: 0.67. Valve area (VTI): 1.34cm^2. Indexed valve area (VTI): 0.62cm^2/m^2. Peak velocity ratio of LVOT to aortic valve: 0.85. Valve area (Vmax): 1.71cm^2. Indexed valve area (Vmax): 0.79cm^2/m^2. Mean gradient (S): 4mm Hg. Peak gradient (S): 9mm Hg. AORTA: Aortic root: The aortic root was normal in size. MITRAL VALVE: Mildly to moderately calcified annulus. Doppler: No significant regurgitation. Peak gradient (D): 2mm Hg. LEFT ATRIUM: The atrium was normal in size. RIGHT VENTRICLE: The cavity size was normal. Systolic function was normal. PULMONIC VALVE: Structurally normal valve. Doppler: No significant regurgitation. TRICUSPID VALVE: Structurally normal valve. Doppler: Mild regurgitation. RIGHT ATRIUM: The atrium was normal in size. PERICARDIUM: There was no pericardial effusion. SYSTEMIC VEINS: Inferior vena cava: The vessel was normal in size. Measurements Left ventricle Value Reference LV ID, ED, PLAX chordal (L) 4.9 cm 43.0 - 52.0 LV ID, ES, PLAX chordal (L) 3.6 cm 23.0 - 38.0 LV fx shortening, PLAX (L) 28 % >=29 chordal LV PW thickness, ED 1.0 cm IVS/LV PW ratio, ED (N) 0.78 <=1.3 LV end-diastolic volume, 120 ml 2-p LV end-systolic volume, 60 ml 2-p LV ejection fraction, 50 % 2-p LV end-diastolic 56 ml/m^2 volume/bsa, 2-p LV end-systolic 28 ml/m^2 volume/bsa, 2-p LV e', lateral 0.095 m/sec LV E/e', lateral 8 LV e', medial 0.074 m/sec LV E/e', medial 10 LV e', average 0.084 m/sec LV E/e', average 9 Ventricular septum Value Reference IVS thickness, ED 0.8 cm LVOT Value Reference LVOT ID, S 1.6 cm LVOT area 2 cm^2 LVOT peak velocity, S 0.92 m/sec LVOT VTI, S 10.8 cm Aortic valve Value Reference Aortic valve peak 1.1 m/sec velocity, S Aortic valve VTI, S 16.2 cm Aortic mean gradient, S 4 mm Hg Aortic peak gradient, S 9 mm Hg VTI ratio, LVOT/AV 0.67 Aortic valve area, VTI 1.34 cm^2 Aortic valve area/bsa, 0.62 cm^2/m^2 VTI Velocity ratio, peak, 0.85 LVOT/AV Aortic valve area, peak 1.71 cm^2 velocity Aortic valve area/bsa, 0.79 cm^2/m^2 peak velocity Aorta Value Reference Aortic root ID 2.3 cm Left atrium Value Reference LA ID, A-P, ES 3.9 cm LA ID/bsa, A-P (N) 1.8 cm/m^2 <=2.2 LA volume, ES, 2-p 51 ml LA volume/bsa, ES, 2-p 24 ml/m^2 Mitral valve Value Reference Mitral E-wave peak 0.75 m/sec velocity Mitral A-wave peak 0.82 m/sec velocity Mitral deceleration time (N) 218 ms 150 - 230 Mitral peak gradient, D 2 mm Hg Mitral E/A ratio, peak 0.92 Pulmonary arteries Value Reference PA pressure, S, DP (N) 24 mm Hg <=30 Tricuspid valve Value Reference Tricuspid regurg peak 2.3 m/sec velocity Tricuspid peak RV-RA 21 mm Hg gradient Systemic veins Value Reference Estimated CVP 3 mm Hg Right ventricle Value Reference RV pressure, S, DP (N) 24 mm Hg <=30 Pulmonic valve Value Reference Pulmonic valve peak 1.03 m/sec velocity, S Legend: (L) and (H) gustavo values outside specified reference range. (N) sanchez values inside specified reference range. Procedure data: Procedure information: Transthoracic echocardiography. Image quality was fair. The study was technically limited. Scanning was performed from the parasternal, apical, and subcostal acoustic windows. Intravenous contrast (Definity) was administered. Study completion: There were no complications. Transthoracic echocardiography. Complete 2D, complete spectral Doppler, and color Doppler. Birthdate: Patient birthdate: 1955. Age: Patient is 62yr old. Sex: Gender: female. Height: Height: 154.9cm. Height: 61in. Weight: Weight: 122.5kg. Weight: 269.4lb. Body mass index: BMI: 51kg/m^2. Body surface area: BSA: 2.15m^2. Study date: Study date: 09/30/2017. Study time: 11:17 AM. Prepared and Electronically Authenticated Justen Hampton [id number] Francisco Castaneda MD US ORDERABLES INTERFACE SYSTEM Refer to clinic/hospital department * (ABNORMAL) POC GLUCOSE (09/30/2017 8:07 AM CDT) GLUCOSE POC 178(H) 74 - 99 mg/dL 09/30/2017 8:19 AM CDT [facility] LABOR[facility]ORY [facility] TRANSPORT SPECIALIST NAME MARCE PRATER 09/30/2017 8:19 AM CDT [facility] [employer] [facility] Whole blood specimen (specimen) 09/30/2017 8:07 AM CDT 09/30/2017 8:19 AM CDT De Monterroso MD POINT OF CARE TESTIN G Performing Organization Address City/[facility]/ZIP Co de Phone Number [facility] [employer] [facility] CLIA# [id number] [facility] [place] [address] [place] [address] * (ABNORMAL) POC GLUCOSE (09/30/2017 4:12 AM CDT) GLUCOSE POC 177(H) 74 - 99 mg/dL 09/30/2017 4:30 AM CDT [facility] LABORATORY SERVICES [facility] COMMENT, GLU POC Notified RN/MD 09/30/2017 4:30 AM CDT [facility] LABORATORY SERVICES - [facility] TRANSPORT SPECIALIST NAME POC SARBJIT RAMSAYIMOL 09/30/2017 4:30 AM CDT [facility] LABORATORY SERVICES [facility] Whole blood specimen (specimen) 09/30/2017 4:12 AM CDT 09/30/2017 4:30 AM CDT Francisco Castaneda MD POINT OF CARE TESTIN Michael Performing Organization Address [facility] Co de Phone Number [facility]OR[facility]ORY [facility] CLIA# [id number] [address] [place] [address] * (ABNORMAL) POC GLUCOSE (09/29/2017 11:59 PM CDT) GLUCOSE POC 156(H) 74 - 99 mg/dL 09/30/2017 4:07 AM CDT [facility] LABORATORY SERVICES [facility] COMMENT, GLU POC Notified RN/ 09/30/2017 4:07 AM CDT [facility] LABORATORY SERVICES [facility] TRANSPORT SPECIALIST NAME POC SARBJIT RAMSAYIMOL 09/30/2017 4:07 AM CDT [facility] LABORATORY SERVICES [facility] Whole blood specimen (specimen) 09/29/2017 11:59 PM CDT 09/30/2017 4:07 AM CDT Francisco Castaneda MD POINT OF CARE TESTIN G Performing Organization Address City/[facility]/ZIP Co de Phone Number [facility] LABORATORY [facility] CLIA# [id number] [address] [place] [address] * (ABNORMAL) POC GLUCOSE (09/29/2017 8:58 PM CDT) GLUCOSE POC 221(H) 74 - 99 mg/dL 09/29/2017 9:16 PM CDT [facility] TRANSPORT SPECIALIST NAME POC NYDIA PELLETIER 09/29/2017 9:16 PM CDT [facility] LABOR[facility] Whole blood specimen (specimen) 09/29/2017 8:58 PM CDT 09/29/2017 9:16 PM CDT Francisco Castaneda MD POINT OF CARE TESTIN G [facility]# [id number] [address] [place] [address] * (ABNORMAL) POC GLUCOSE (09/29/2017 4:47 PM CDT) GLUCOSE POC 104(H) 74 - 99 mg/dL 09/29/2017 5:01 PM CDT [facility] LABOR[facility]ORY [facility] TRANSPORT SPECIALIST NAME POC CHET SANDRITA 09/29/2017 5:01 PM CDT [facility] LABORATORY SERVICES [facility] Whole blood specimen (specimen) 09/29/2017 4:47 PM CDT 09/29/2017 5:01 PM CDT Francisco Castaneda MD POINT OF CARE TESTIN G [facility]# [id number] [address] [place] [address] * (ABNORMAL) POC GLUCOSE (09/29/2017 10:33 AM CDT) GLUCOSE POC 154(H) 74 - 99 mg/dL 09/29/2017 10:46 AM CDT [facility] LABOR[facility]ORY [facility] TRANSPORT SPECIALIST NAME POC SANDRITA ROSENBERG 09/29/2017 10:46 AM CDT [facility] LABOR[facility]ORY [facility] Whole blood specimen (specimen) 09/29/2017 10:33 AM CDT 09/29/2017 10:46 AM CDT Francisco Castaneda MD POINT OF CARE TESTIN G Performing Organization Address [facility] Co de Phone Number [facility] CLIA# [id number] [address] [place] [address] * D-DIMER (09/29/2017 7:49 AM CDT) D-DIMER QUANT <0.27 <0.42 ug/mL FEU 09/29/2017 8:41 AM CDT [facility] Comment: The DIC reference range is not [...] pre-test probability assessment. Blood Venipuncture / Unknown 09/29/2017 7:49 AM CDT 09/29/2017 7:58 AM CDT Francisco Castaneda MD HEMATOLOGY ORDERABLE S Performing Organization Address [facility] Co de Phone Number [facility] CLIA# [id number] [address] [place] [address] * TROPONIN (09/29/2017 7:49 AM CDT) TROPONIN T <0.01 <0.04 ng/mL 09/29/2017 8:36 AM CDT [facility] Blood Venipuncture / Unknown 09/29/2017 7:49 AM CDT 09/29/2017 7:58 AM CDT Francisco Castaneda MD CHEMISTRY ORDERABLES Performing Organization Address [facility]/ZIP Co de Phone Number [facility] CLIA# [id number] [address] [place] [address] * (ABNORMAL) URINALYSIS WITH REFLEX MICROSCOPIC (09/28/2017 10:57 PM CDT) COLOR UA Yellow Pale to Dark Yellow 09/28/2017 11:[address] [facility] [employer] LABORATORY SERVICES - [facility] CLARITY UA Clear Clear 09/28/2017 11:[address] [facility] [employer] LABORATORY SERVICES - [facility] SPECIFIC GRAVITY UA 1.017 1.003 - 1.035 09/28/2017 11:[address] [facility] [employer] LABORATORY SERVICES - [facility] PH UA 5.0 5.0 - 8.0 09/28/2017 11:[address] [facility] [employer] LABORATORY SERVICES - [facility] LEUKOCYTE ESTERASE UA Trace(A) Negative 09/28/2017 11:[address] [facility] [employer] SERVICES - [facility] NITRITE UA Negative Negative 09/28/2017 11:11 PM [employer] LABORATORY SERVICES - [facility] PROTEIN UA Negative Negative 09/28/2017 11:[address] [facility] [employer] LABORATORY SERVICES - [facility] GLUCOSE UA 3+(A) Negative 09/28/2017 11:11 PM [email or web address] SERVICES - [facility] KETONES UA Negative Negative 09/28/2017 11:11 PM [employer] LABORATORY SERVICES - [facility] UROBILINOGEN UA Normal <2.0 mg/dL 8 11:11 PM [employer] LABORATORY SERVICES - [facility] BILIRUBIN UA Negative Negative 09/28/2017 11:11 PM [employer] LABORATORY SERVICES - [facility] BLOOD UA 1+(A) Negative 09/28/2017 11:11 PM [employer] LABORATORY SERVICES - [facility] WBC UA 3-5(A) 0 - 2 /hpf 09/28/2017 11:11 PM [employer] LABORATORY SERVICES - . [facility] RBC UA 0-2 0 - 2 /hpf 09/28/2017 11:11 PM [employer] LABORATORY SERVICES - [facility] BACTERIA UA Negative Negative /hpf 09/28/2017 11:11 PM [employer] LABORATORY SERVICES - [facility] EPITHELIAL CELLS, URINE 0-5 0 - 5 /hpf 09/28/2017 11:11 PM [employer] LABORATORY SERVICES - [facility] Urine URINE SPECIMEN OBTAINED BY CLEAN CATCH PROCEDURE / Unknown Collection / Unknown 09/28/2017 10:57 PM CDT 09/28/2017 10:59 PM CDT Vitaliy Boykin MD URINE ORDERABLES [facility] LABORATORY SERVICES [facility]# [id number] [address] [place] [address] * XR CHEST PA AND LATERAL 2 VW (09/28/2017 10:07 PM CDT) Anatomical Region Laterality Modality Chest Computed Radiogr aphy 09/28/2017 10:0 8 PM CDT Impressions 09/28/2017 10:52 PM CDT IMPRESSION: Findings suggesting early fluid overload. DICTATION LOCATION: Location [address] [place] [address] Narrative 09/28/2017 10:52 PM CDT CHEST PA AND LATERAL DATE: 09/28/2017 10:07 PM HISTORY: Difficulty breathing. COMPARISON: 09/14/2017 FINDINGS: AP upright and lateral views of the chest demonstrate the heart to be at the upper limits of normal in size. Mild prominence of the central pulmonary vasculature is noted with bibasilar interstitial prominence. The conglomerate of findings suggests early fluid overload. No focal infiltrate or consolidation is seen. No pneumothorax is evident. Procedure Note Lashell Grace MD - 09/28/2017 CHEST PA AND LATERAL DATE: 09/28/2017 10:07 PM HISTORY: Difficulty breathing. COMPARISON: 09/14/2017 FINDINGS: AP upright and lateral views of the chest demonstrate the heart to be at the upper limits of normal in size. Mild prominence of the central pulmonary vasculature is noted with bibasilar interstitial prominence. The conglomerate of findings suggests early fluid overload. No focal infiltrate or consolidation is seen. No pneumothorax is evident. IMPRESSION: Findings suggesting early fluid overload. DICTATION LOCATION: Location [address] [place] [address] Vitaliy Boykin MD DIAGNOSTIC IMAGING O RDERABLES * (ABNORMAL) POC GLUCOSE (09/28/2017 8:47 PM CDT) GLUCOSE POC 339(H) 74 - 99 mg/dL 09/28/2017 8:59 PM CDT [employer] LABORATORY SERVICES - [facility] COMMENT, GLU POC Notified RN/MD 09/28/2017 8:59 PM CDT [employer] LABORATORY SERVICES - [facility] TRANSPORT SPECIALIST NAME POC JOAQUÍN EDWARD 09/28/2017 8:59 PM CDT [employer] LABORATORY SERVICES - [facility] Whole blood specimen (specimen) 09/28/2017 8:47 PM CDT 09/28/2017 8:59 PM CDT Interface Provider Poct POINT OF CARE TE STING [facility] [employer] [facility] [id number] [address] [facility] [place] [address] * (ABNORMAL) LIPID PANEL (09/28/2017 8:41 PM CDT) CHOLESTEROL 174 <200 mg/dL 09/30/2017 2:45 AM CDT [employer] SERVICES - [facility] TRIGLYCERIDE 109 <150 mg/dL 09/30/2017 2:45 AM CDT [employer] SERVICES - [facility] HDL 45 40 - 59 mg/dL 09/30/2017 2:45 AM CDT [employer] SERVICES - [facility] LDL CALCULATED 107(H) <100 mg/dL 09/30/2017 2:45 AM CDT [employer] [employer] SERVICES - [facility] NON-HDL CHOLESTEROL 129 <130 mg/dL 09/30/2017 2:45 AM CDT [employer] [employer] SERVICES - [facility] Blood Venipuncture / Unknown 09/28/2017 8:41 PM CDT 09/28/2017 8:46 PM CDT Narrative [facility] LABORATORY SERVICES - [facility] - 09/30/2017 2:45 AM CDT TOTAL [...] Panels (NCEP/AMA) Francisco Castaneda MD CHEMISTRY ORDERABLES Performing Organization Address [facility] Number [facility] [employer] [facility]# [id number] [address] [place] [address] * (ABNORMAL) HEMOGLOBIN A1C (09/28/2017 8:41 PM CDT) Pathologist [facility] HEMOGLOBIN A1C 8.1(H) 4.0 - 6.0 % 09/29/2017 10:28 AM CDT [facility] EST. AVG GLUCOSE, A1C 186 mg/dL 09/29/2017 10:28 AM CDT [facility] Blood Venipuncture / Unknown 09/28/2017 8:41 PM CDT 09/28/2017 8:46 PM CDT [facility] [employer] [facility] - 09/29/2017 10:28 AM CDT HGB A1C INTERPRETATION NORMAL: ? <5.7% PRE-DIABETES: 5.7 - 6.4% DIABETES: ? 6.5% OR GREATER Francisco Castaneda MD CHEMISTRY ORDERABLES Performing Organization Address [facility] Phone Number [facility] [employer] [facility]# [id number] [address] [facility] [place] [address] * BRAIN NATRIURETIC PEPTIDE, BNP OR PROBNP (09/28/2017 8:41 PM CDT) Pathologist [facility] PROBNP, N TERMINAL <50 <124 pg/mL 2017 10:16 PM CDT [facility] Comment: Reference values for screening purposes based on rn visiting's recommendation: Patients less than 75 years: <125 pg/mL Patients 75 years and older: <450 pg/mL Reference values for determination of acute congestive heart failure in dyspneic patients based on PRIDE study (Am J Cardiol 2005;95:948): Patients less than 50 years: <450 pg/mL (Negative predictive value= 99%) Patients 50 years and older: <900 pg/mL (Negative predictive value= 92%) Rule out cutpoint, all ages: <300 pg/mL (Negative predictive value= 99%) Blood Venipuncture / Unknown 09/28/2017 8:41 PM CDT 09/28/2017 8:46 PM CDT Vitaliy Boykin MD CHEMISTRY ORDERABLES Performing Organization Address [facility] Co de Phone Number [facility]# [id number] [address] [place] [address] * TROPONIN (09/28/2017 8:41 PM CDT) TROPONIN T <0.01 <0.04 ng/mL 09/28/2017 10:16 PM CDT [facility] [employer] [facility] Blood Venipuncture / Unknown 09/28/2017 8:41 PM CDT 09/28/2017 8:46 PM CDT Vitaliy Boykin MD CHEMISTRY ORDERABLES Performing Organization Address [facility] de Phone Number [facility]# [id number] [address] [place] [address] * PTT (09/28/2017 8:41 PM CDT) PTT 29.0 24.4 - 36.4 seconds 09/28/2017 9:17 PM CDT [facility] [employer] [facility] Comment: PTT Therapeutic Range: Heparin Level ? PTT (seconds) <0.10 units/mL ? <53 0.10 - 0.30 units/mL ? 53 - 67 0.30 - 0.70 units/mL* ?67 - 95* 0.70 - 1.00 units/mL ? 95 - 116 *corresponds to therapeutic range for unfractionated heparin Blood Venipuncture / Unknown 09/28/2017 8:41 PM CDT 09/28/2017 8:46 PM CDT Vitaliy Boykin MD HEMATOLOGY ORDERABLE S [facility] LABORATORY [facility]# [id number] [address] [place] [address] * (ABNORMAL) PROTIME-INR (09/28/2017 8:41 PM CDT) PROTIME 14.8 12.7 - 15.1 Seconds 09/28/2017 9:17 PM CDT [facility] LABORATORY [facility] INR 1.2(H) 0.9 - 1.1 09/28/2017 9:17 PM CDT [facility] LABORATORY [facility] Blood Venipuncture / Unknown 09/28/2017 8:41 PM CDT 09/28/2017 8:46 PM CDT Narrative [facility] LABORATORY [facility] - 09/28/2017 9:17 PM CDT INR Therapeutic Range: Adult: ?? 2.0 - 3.0 for pulmonary embolism or prophylaxis against venous ?thrombosis or systemic embolization. 2.0 - 3.0 for patients with tissue heart valves. 2.5 - 3.5 for patients with mechanical heart valves or post IL. Pediatric ??(12 years and under): 1.5 - 3.0 Although the target range in children is not well established, ?INR values of 1.5 - 3.0 are recommended for most patients. ?Higher values have been used in children with prosthetic ?cardiac valves and hereditary clotting disorders. (<3 days) therapeutic ranges have not been established. Vitaliy Boykin MD HEMATOLOGY ORDERABLE S Performing Organization Address [facility]/ZIP Co de Phone Number [facility] LABORATORY [facility]# [id number] [address] [place] [address] * TSH (09/28/2017 8:41 PM CDT) TSH 1.80 0.27 - 4.20 uIU/mL 09/28/2017 10:13 PM CDT [facility] LABORATORY SERVICES [facility] Blood Venipuncture / Unknown 09/28/2017 8:41 PM CDT 09/28/2017 8:46 PM CDT Vitaliy Boykin MD CHEMISTRY ORDERABLES Performing Organization Address [facility]/ZIP Co de Phone Number [facility] LABORATORY SERVICES [facility]# [id number] [address] [place] [address] * (ABNORMAL) COMPREHENSIVE METABOLIC PANEL (09/28/2017 8:41 PM CDT) SODIUM 139 136 - 145 mmol/L 09/28/2017 9:35 PM CDT [employer] LABORATORY SERVICES - [facility] POTASSIUM 4.4 3.5 - 5.0 mmol/L 09/28/2017 9:35 PM CDT [facility] LABORATORY SERVICES - [facility] CHLORIDE 101 98 - 107 mmol/L 09/28/2017 9:35 PM CDT [facility] LABORATORY SERVICES - [facility] CO2 26 22 - 29 mmol/L 09/28/2017 9:35 PM CDT [facility] LABORATORY SERVICES - [facility] CALCIUM 9.2 8.6 - 10.2 mg/dL 09/28/2017 9:35 PM CDT [employer] LABORATORY SERVICES - . [facility] BUN 15 8 - 23 mg/dL 09/28/2017 9:35 PM CDT [facility] LABORATORY SERVICES - [facility] CREATININE 0.69 0.51 - 0.95 mg/dL 09/28/2017 9:35 PM T [facility] LABORATORY SERVICES - [facility] GLUCOSE 330(H) 74 - 99 mg/dL 09/28/2017 9:[address] [facility] [employer] LABORATORY SERVICES - [facility] TOTAL PROTEIN 7.9 6.7 - 8.6 g/dL 09/28/2017 9:[address] [facility] [employer] LABORATORY SERVICES - [facility] ALBUMIN 3.5 3.5 - 5.2 g/dL 09/28/2017 9:35 PM T [facility] LABORATORY SERVICES - [facility] BILIRUBIN TOTAL 0.3 0.2 - 1.1 mg/dL 09/28/2017 9:[address] [facility] LABORATORY SERVICES [facility] ALKALINE PHOSPHATASE 76 35 - 104 U/L 09/28/2017 9:[address] [facility] [employer] LABORATORY SERVICES [facility] AST 17 <33 U/L 09/28/2017 9:[address] [facility] [employer] LABORATORY SERVICES - [facility] ALT 17 <34 U/L 09/28/2017 9:[address] [facility] [employer] LABORATORY SERVICES [facility] GFR >60 >=60 mL/min/1.7 3 sq meter 09/28/2017 9:[address] [facility]ORATORY SERVICES [facility] Comment: eGFR has not been validated for [...] GFR, >60 >=60 mL/min/1.7 3 sq meter 09/28/2017 9:[address] [facility] LABORATORY SERVICES [facility] ANION GAP 12 8 - 16 mmol/L 09/28/2017 9:[address] [facility] [employer] LABORATORY [facility] Blood Venipuncture / Unknown 09/28/2017 8:41 PM CDT 09/28/2017 8:46 PM CDT [facility] [employer] LABORATORY SERVICES - [facility] - 09/28/2017 9:35 PM CDT Samples containing indocyanine green cause interferences on Total and/or Direct Bilirubin and must not be measured. Vitaliy Boykin MD CHEMISTRY ORDERABLES [facility] LABORATORY SERVICES - [facility]# [id number] [address] [place] [address] * (ABNORMAL) CBC WITH DIFFERENTIAL (09/28/2017 8:41 PM CDT) WBC 10.5(H) 4.0 - 9.8 K/uL 09/28/2017 9:06 PM CDT [facility] LABORATORY SERVICES - [facility] RBC 4.15 3.90 - 4.90 M/uL 09/28/2017 9:06 PM CDT [facility] LABORATORY SERVICES - [facility] HEMOGLOBIN 11.1(L) 11.8 - 14.8 g/dL 09/28/2017 9:06 PM CDT [facility] LABORATORY SERVICES - [facility] HEMATOCRIT 36.1 35.5 - 44.0 % 09/28/2017 9:06 PM CDT [facility] LABORATORY SERVICES - [facility] MCV 87.0 82.0 - 99.0 fL 09/28/2017 9:06 PM CDT [facility] LABORATORY SERVICES - [facility] MCH 26.7(L) 27.2 - 32.6 pg 09/28/2017 9:06 PM CDT [facility] LABORATORY SERVICES - [facility] MCHC 30.7(L) 31.5 - 35.5 g/dL 09/28/2017 9:06 PM CDT [facility] LABORATORY SERVICES - [facility] RDW 15.1(H) 11.5 - 14.5 % 09/28/2017 9:06 PM CDT [facility] LABORATORY SERVICES - [facility] RDW-STDEV 48.3 37.1 - 48.7 fL 09/28/2017 9:06 PM CDT [facility] LABORATORY SERVICES - [facility] PLATELETS 346 140 - 350 K/uL 09/28/2017 9:06 PM CDT [facility] LABORATORY SERVICES - [facility] MPV 9.6 9.3 - 12.4 fL 09/28/2017 9:06 PM CDT [facility] LABORATORY SERVICES - . [facility] NEUTROPHILS 67 % 09/28/2017 9:06 PM CDT [facility] - [facility] LYMPHOCYTES 22 % 09/28/2017 9:06 PM CDT [facility] MONOCYTES 8 % 09/28/2017 9:06 PM CDT [facility] EOSINOPHILS 3 % 09/28/2017 9:06 PM CDT [facility] LABORATORY SERVICES - [facility] BASOPHILS 0 % 09/28/2017 9:06 PM CDT [facility] LABORATORY SERVICES - . [facility] IMMATURE GRANULOCYTES 0 % 09/28/2017 9:06 PM CDT [facility] LABORATORY SERVICES - . [facility] NEUTROPHIL ABSOLUTE 7.02(H) 1.90 - 7.00 K/uL 09/28/2017 9:06 PM CDT [facility] LABORATORY SERVICES - . [facility] LYMPHOCYTE ABSOLUTE 2.25 0.70 - 4.50 K/uL 09/28/2017 9:06 PM CDT [facility] LABORATORY SERVICES - . [facility] MONOCYTE ABSOLUTE 0.83 0.10 - 1.30 K/uL 09/28/2017 9:06 PM CDT [facility] LABORATORY SERVICES - . [facility] EOSINOPHIL ABSOLUTE 0.28 0.00 - 0.70 K/uL 09/28/2017 9:06 PM CDT [facility] BASOPHILS ABSOLUTE 0.03 0.00 - 0.20 K/uL 09/28/2017 9:06 PM CDT [facility] LABORATORY SERVICES - . [facility] IMMATURE GRANULOCYTES ABSOLUTE 0.04(H) 0.00 - 0.03 K/uL 09/28/2017 9:06 PM CDT [facility] LABORATORY SERVICES - [facility] Blood Venipuncture / Unknown 09/28/2017 8:41 PM CDT 09/28/2017 8:46 PM CDT Vitaliy Boykin MD HEMATOLOGY ORDERABLE S [facility] LABORATORY SERVICES [facility]# [id number] [address] [address] * EKG 12-LEAD (09/28/2017 6:59 PM CDT) 09/28/2017 6:59 PM CDT Narrative INTERFACE SYSTEM - 09/28/2017 11:48 PM CDT ? Stationary ECG Study ? [facility] ? Test Date: ?09/28/2017 6:59 PM Pat Name: ? MOHSEN MARQUES ?Department: ?? 37 ?Room: ? Gender: ? 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 moortg : ?1955 ? Requested By: ?? Order Number: [id number] ?Reading MD: ?? Justen Hampton ? Measurements Intervals ?[place] ? Rate: ? 94 ? P: ?56 VA: ? 125 ?QRS: ?1 QRSD: ? 93 ? T: ?56 QT: ? 352 ? QTc: ?441 ? Interpretive Statements ? Sinus rhythm Nonspecific T abnormality. Electronically Signed On 09-28-2017 23:48:57 CDT by Justen Hampton Procedure Note Provider, Historical - 06/30/2021 Stationary ECG Study [facility] Test Date: 09/28/2017 6:59 PM Pat Name: MOHSEN MARQUES Department: 37 Room: Gender: F Relief Worker: coleen : 1955 Requested By: Order Number: [id number] Felipe MD: Justen Hampton Measurements Intervals Bison Rate: 94 P: 56 VA: 125 QRS: 1 QRSD: 93 T: 56 QT: 352 QTc: 441 Interpretive Statements Sinus rhythm Nonspecific T abnormality. Electronically Signed On 09-28-2017 23:48:57 CDT by Justen Hampton Vitaliy Boykin MD ECG ORDERABLES INTERFACE SYSTEM Refer to clinic/hospital department documented in this encounter Visit Diagnoses Diagnosis Syncope- Primary Syncope and collapse Syncope, unspecified syncope type Chest pain, unspecified type Malaise and fatigue Other malaise and fatigue SOB (shortness of breath) Shortness of breath documented in this encounter Administered Medications Inactive Administered Medications - up to 3 most recent administrations Medication Order MAR Action Action Date Dose Rate Site aminophylline 250 mg/10 mL injection 100 mg 100 mg, IV, ONE TIME ONLY, 1 dose, On 09/30/17 at 1300, Routine Given 09/30/2017 12:05 PM CDT 100 mg dextrose 5% infusion IV, at 40 mL/hr, SEE ADMIN INSTRUCTIONS, Starting on Mon09/29/17 at 0746, Until 09/30/17 at 2109, Routine dextrose 50% (D50) syringe 12.5 Gram 12.5 Gram, IV, SEE ADMIN INSTRUCTIONS, Starting on Mon09/29/17 at 0746, Until 09/30/17 at 2109, Routine dextrose 50% (D50) syringe 25 Gram 25 Gram, IV, SEE ADMIN INSTRUCTIONS, Starting on Mon09/29/17 at 0746, Until 09/30/17 at 2109, Routine exemestane (AROMASIN) tablet 25 mg 25 mg, Oral, DAILY, First dose on Mon09/29/17 at 0900, Until Discontinued, Routine Given 09/30/2017 8:03 AM CDT 25 mg Given 09/29/2017 9:54 AM CDT 25 mg fentaNYL PF (SUBLIMAZE) 50 mcg/mL injection 25 mcg 25 mcg, IV, ONE TIME ONLY, 1 dose, On Mon09/29/17 at 0000, Routine Given 09/28/2017 11:52 PM CDT 25 mcg glucagon HCl 1 mg injection 1 mg 1 mg, IM, SEE ADMIN INSTRUCTIONS, Starting on Mon09/29/17 at 0746, Until 09/30/17 at 2109, Routine HYDROcodone-acetaminophen (NORCO) 5-325 mg per tablet 1 Tablet 1 Tablet, Oral, EVERY 6 HOURS PRN, Starting on Mon09/29/17 at 0247, Until 09/30/17 at 2109, Pain (See admin instructions), Routine Given 09/30/2017 4:38 PM CDT 1 Tablet Given 09/30/2017 7:36 AM CDT 1 Tablet Given 09/29/2017 5:32 PM CDT 1 Tablet insulin lispro (HumaLOG) variable dose injection subCUT, THREE TIMES DAILY WITH MEALS, First dose on Mon09/29/17 at 0800, Until Discontinued, Routine Given 09/30/2017 5:42 PM CDT 1 Units Abdomen, Left Lower Quadrant Given 09/30/2017 2:11 PM CDT 1 Units Ab domen, Left Lower Quadrant Given 09/30/2017 8:10 AM CDT 1 Units Ab domen, Left Lower Quadrant insulin lispro (HumaLOG) variable dose injection subCUT, DAILY AT BEDTIME, First dose on Mon09/29/17 at 2100, Until Discontinued, Routine Given 09/29/2017 8:58 PM CDT 2 Units Arm, Right Upper Lidocaine 4 % topical patch 1 Patch 1 Patch, Topical, DAILY, 3 doses, First dose on 09/30/17 at 0900, Last dose on Mon10/02/17 at 0900, Routine Applied 09/30/2017 8:06 AM CDT 1 Patch Back, Right oxybutynin chloride (DITROPAN) tablet 5 mg 5 mg, Oral, DAILY, First dose on Mon09/29/17 at 0900, Until Discontinued, Routine Given 09/30/2017 8:08 AM CDT 5 mg Given 09/29/2017 9:54 AM CDT 5 mg perflutren lipid microspheres (DEFINITY) 1.1 mg/mL injection 2 mL 2 mL, IV, INTRA-PROCEDURE ONCE, 1 dose, Starting on 09/30/17 at 1136, Until 09/30/17 at 1137, Routine Contrast Given 09/30/2017 11:37 AM CDT 2 mL regadenoson (LEXISCAN) 0.4 mg/5 mL injection 0.4 mg, IV, INTRA-PROCEDURE ONCE, 1 dose, Starting on 09/30/17 at 1140, Until 09/30/17 at 1148, Routine Given 09/30/2017 11:48 AM CDT 0.4 mg rivaroxaban (XARELTO) tablet 10 mg 10 mg, Oral, DAILY, First dose on Mon09/29/17 at 1000, Until Discontinued, Routine Given 09/30/2017 8:09 AM CDT 10 mg Given 09/29/2017 12:09 PM CDT 10 mg rOPINIRole (REQUIP) tablet 5 mg 5 mg, Oral, DAILY AT BEDTIME, First dose on Mon09/29/17 at 2100, Until Discontinued, Routine Given 09/29/2017 8:46 PM CDT 5 mg traMADol (ULTRAM) tablet 50 mg 50 mg, Oral, EVERY 6 HOURS PRN, Starting on Mon09/29/17 at 1544, Until 09/30/17 at 2109, Pain (See admin instructions), Routine Given 09/29/2017 8:55 PM CDT 50 mg documented in this encounter Active and Recently Administered Medications Times are shown in CDT. Scheduled Medication Order 09/28/2017 09/29/2017 09/30/2017 aminophylline 250 mg/10 mL injection 100 mg (COMPLETED) 100 mg, IV, ONE TIME ONLY, 1 dose, On 09/30/17 at 1300, Routine 1205 (Given - Provid er: ALEJA BARRIOS)1300 (Canceled Entry - Provider: Ishan Quiros, NURIS) dextrose 5% infusion IV, at 40 mL/hr, SEE ADMIN INSTRUCTIONS, Starting on Mon09/29/17 at 0746, Until 09/30/17 at 210, Routine dextrose 50% (D50) syringe 12.5 Gram 12.5 Gram, IV, SEE ADMIN INSTRUCTIONS, Starting on Mon09/29/17 at 0746, Until 09/30/17 at 210, Routine dextrose 50% (D50) syringe 25 Gram 25 Gram, IV, SEE ADMIN INSTRUCTIONS, Starting on Mon09/29/17 at 0746, Until 09/30/17 at 210, Routine exemestane (AROMASIN) tablet 25 mg 25 mg, Oral, DAILY, First dose on Mon09/29/17 at 0900, Until Discontinued, Routine 0954 (Given - Provider: Aislinn Villarreal, NURIS) 0803 (Given - Provider: Ishan Quiros, NURIS) fentaNYL PF (SUBLIMAZE) 50 mcg/mL injection 25 mcg (COMPLETED) 25 mcg, IV, ONE TIME ONLY, 1 dose, On Mon09/29/17 at 0000, Routine 2352 (Given - Provider: Patricia Mcgrath RN) glucagon HCl 1 mg injection 1 mg 1 mg, IM, SEE ADMIN INSTRUCTIONS, Starting on Mon09/29/17 at 0746, Until 09/30/17 at 2109, Routine insulin lispro (HumaLOG) variable dose injection subCUT, THREE TIMES DAILY WITH MEALS, First dose on Mon09/29/17 at 0800, Until Discontinued, Routine 1042 (Given - Provider: Aislinn Villarreal RN - Comment: B)1200 (Not Given - Provider: Aislinn Villarreal RN - Reason: Patient off unit - Comment: off floor for stress test)1647 (Not Given - Provider: Yeni Walter RN - Reason: Lab results - Comment: BS [phone]) 0810 (Given - Provider: Ishan Quiros RN - Comment: [id number])1411 (Given - Provider: Ishan Quiros RN - Comment: ay=[id number])1742 (Given - Provider: Ishan Quiros RN - Comment: [id number]) insulin lispro (HumaLOG) variable dose injection subCUT, DAILY AT BEDTIME, First dose on Mon09/29/17 at 2100, Until Discontinued, Routine 2057 (Given - Provider: Nydia Pelletier RN) Lidocaine 4 % topical patch 1 Patch 1 Patch, Topical, DAILY, 3 doses, First dose on 09/30/17 at 0900, Last dose on Mon10/02/17 at 0900, Routine 0806 (Applied - Provider: Ishan Quiros RN)1909 (Due: Removed - Provider: PROVIDER, DISCHARGE PATIENT - Comment: Time automatically adjusted from order being discontinued) oxybutynin chloride (DITROPAN) tablet 5 mg 5 mg, Oral, DAILY, First dose on Mon09/29/17 at 0900, Until Discontinued, Routine 0954 (Given - Provider: Aislinn Villarreal RN) 0808 (Given - Provider: Ishan Quiros RN) perflutren lipid microspheres (DEFINITY) 1.1 mg/mL injection 2 mL (COMPLETED) 2 mL, IV, INTRA-PROCEDURE ONCE, 1 dose, Starting on 09/30/17 at 1136, Until 09/30/17 at 1137, Routine 1137 (Contrast Given - Provider: Peggy Morris [facility] - Comment: Diluted bolus. Well tolerated.) regadenoson (LEXISCAN) 0.4 mg/5 mL injection (COMPLETED) 0.4 mg, IV, INTRA-PROCEDURE ONCE, 1 dose, Starting on 09/30/17 at 1140, Until 09/30/17 at 1148, Routine 1148 (Given - Provid er: ALEJA BARRIOS) rivaroxaban (XARELTO) tablet 10 mg 10 mg, Oral, DAILY, First dose on Mon09/29/17 at 1000, Until Discontinued, Routine 1209 (Given - Provider: Aislinn Villarreal RN) 0809 (Given - Provider: Ishan Quiros RN) rOPINIRole (REQUIP) tablet 5 mg 5 mg, Oral, DAILY AT BEDTIME, First dose on Mon09/29/17 at 2100, Until Discontinued, Routine 204 (Given - Provider: Nydia Pelletier, RN) PRN Medication Order 09/28/2017 09/29/2017 09/30/2017 acetaminophen (TYLENOL) tablet 650 mg 650 mg, Oral, EVERY 4 HOURS PRN, Starting on Mon09/29/17 at 0744, Until 09/30/17 at 2109, Pain, Mild / Temperature, fever, pain, Routine HYDROcodone-acetaminophen (NORCO) 5-325 mg per tablet 1 Tablet 1 Tablet, Oral, EVERY 6 HOURS PRN, Starting on Mon09/29/17 at 0247, Until 09/30/17 at 2109, Pain (See admin instructions), Routine 0305 (Given - Provider: Yris Feliz RN)1010 (Given - Provider: Aislinn Villarreal RN)1732 (Given - Provider: Yeni Walter RN) 0736 (Given - Provider: Ishan Quiros, NURIS)1638 (Given - Provider: Ishan Quiros RN) ondansetron (ZOFRAN ODT) tablet 4 mg 4 mg, Oral, EVERY 8 HOURS PRN, Starting on Mon09/29/17 at 0745, Until 09/30/17 at 2109, Nausea/Emesis, Routine polyethylene glycol (MIRALAX) packet 17 Gram 17 Gram, Oral, DAILY PRN, Starting on Mon09/29/17 at 0742, Until 09/30/17 at 2109, Constipation, Routine traMADol (ULTRAM) tablet 50 mg 50 mg, Oral, EVERY 6 HOURS PRN, Starting on Mon09/29/17 at 1544, Until 09/30/17 at 2109, Pain (See admin instructions), Routine 205 (Given - Provider: Nydia Pelletier, RN) documented in this encounter Care Teams Crna Relationship Specialty Start Date End Date Justen Gale MD [address] [facility] [place] [address] PCP - General Cardiovascular Disease 09/14/17 documented as of this encounter
--- OUTSIDE RECORDS SUMMARY | 2024-04-26 06:51 | XMS_ITS | CONTINUITY OF CARE DOCUMENT ---
Author Name ayesha, ayesha Address Unknown Organization [facility] Address [address] [place] [address] Phone [phone] Care Team Providers Care Accounting Associate Name Role Phone Yamilet DURÁN, Maico Unavailable ALANIS DURÁN, BRIDGETT Unavailable ALLISON DURÁN, CLARISSE Unavailable [phone] PROBLEMS Condition Status Date Provider Notes Shortness of breath active Ivory Rodriguez Palpitations active Radha Seals INSURANCE PROVIDERS Payer name Policy type / Coverage type Sheldahl red alliance party ID UHC MEDICARE COMPLETE HMO Other [id number] [facility] Medicaid 2 [id number] HISTORY OF PROCEDURES Procedure Date Procedure Name Provider Procedure Notes S tatus Stress EKG Carmine Silverio MD complet ed Regadenoson, 4 units Sergey Saldana MD completed Cardiolite, 2 units Sergey Saldana MD completed SPECT Images Carmine Silverio MD compl eted Holter, 24 or 48 Maico Woodard MD co mpleted
--- OUTSIDE RECORDS SUMMARY | 2024-04-26 06:51 | XMS_ITS | Clinical Summary ---
Author Organization [facility] Address [address] [place] [address] Care Team Providers Care Immigration Guard Name Role Phone Justen Gale MD Primary Care Provider [phone] Source Comments [facility],non-[facility] Affiliates and Associated Physician Practices is amultiple site organization consisting of ambulatory clinics and hospital sitesin [place], [place], [place] and [place]. This disclosure is being madepursuant to the Care Everywhere program and may not contain all information available regarding this patient. Last updated 18.[facility] [employer] Allergies Active Allergy Reactions Criticality Noted Date [...] Gluc Sensor (FreeStyle Eileen 2 Sensor Systm) [facility] APPLY 1 SENSOR AND [...] Only [facility] [address] [place] [address] Caroline Sultana, NURIS 02/07/2024 Orders Only [facility] Orth[facility] [address] [place] [address], [place] [id number] Patrick Flynn APRN-BIRD KEEPER 02/05/2024 Travel 01/26/2024 Telephone [facility] [address] [place] [address], [place] [address] Malodnado Christianson MD Appointment (Referral ) from Last [...] medical care, and heating? Somewhat hard 05/16/2023 [facility] - Occupational Stress [...] this topic Medical Devices Implanted Type Area Equal Opportunity Assistant Device Identifier Shelf Expiration Date Model / Serial / Lot Lead Nrstm 60cm Penta 3mm Pdl 16 Chnl Implanted:Qt y: 1 on 09/16/2021 by Maxi Gregg MD at [facility] Right: Spine Thoracic [employer] [id number] / / Description:CAMILO Slnt Dura Duraseal Pg Trilysine Amine 5 Implanted:Qt y: 1 on 09/16/2021 by Maxi Gregg MD at [facility] Right: Spine Thoracic [employer] David / / Description:CAMILO Proclaim Plus 5 Implanted:Qt y: 1 on 02/16/2023 by Maxi Gregg MD at [facility] Left: Back Cardenas Spine [id number] 11/07/2024 3670 / [id number] / Explanted Type Area Equal Opportunity Assistant Device Identifier Shelf Expiration Date Model / Serial / Lot Gntr Nrstm [id number] Proclaim Elt Implanted:Qty: 1 on 09/16/2021 by Maxi Gregg MD at [facility] Explanted:Qty: 1 on 10/30/2021 by Maxi Gregg MD at [facility] Right: Spine Thoracic [facility] [...] 07/30/2023 1:28 AM CDT 07/30/2023 2:04 AM [facility] Brian Bravo MD LAB - CHEMISTRY ANGEL Herrera Organization Address City/State/ZIP Co de Phone Number [facility] [address] [place] [address] [phone] * HEPATITIS C AB SCREEN RFLX NAAT QUANT (02/21/2023 6:30 PM CDT) Pathologist [facility] Hepatitis C Antibody Non-react hugh Non-reac tive 02/21/2023 7:32 PM CDT [facility] Comment:Hepatitis C Antibody screen indicates [...] Solitario MD LAB - CHEMISTRY ANGEL SPEARS [facility] Organization Address City/State/ZIP Co de Phone Number [facility] [address] [place] [id number] [phone] * (ABNORMAL) HEMOGLOBIN A1C (12/25/2022 3:56 AM CDT) Pathologist [facility] Hemoglobin A1c 8.6(H) <=5.6 % 12/25/2022 2:47 PM CDT [facility] Estimated Average Glucose 200 mg/dL 12/25/2022 2:47 PM CDT [facility] Comment: HbA1c Interpretation: Normal : < 5.7% Pre-diabetes: 5.7-6.4% Diabetes: Equal to or greater than 6.5% Test results diagnostic of diabetes should be repeated for confirmation. Treatment target values recommended by ADA and other clinical organizations should be used to evaluate metabolic control in patients. Reference: [place] [employer], Standards of Care in Diabetes [...] Rodriguez MD LAB - CHEMISTR Y ORDERABLES [place] [address] [place] [address], [facility] [phone] from Last 3 Months or Most Recently [...] 3:37 AM 03/23/2023 7:14 PM Care Teams Immigration Guard Relationship Specialty Start Date End Date Justen Gale MD PCP - General 07/05/21
--- OUTSIDE RECORDS SUMMARY | 2024-04-26 06:52 | XMS_ITS | Patient Health Summary ---
Author Organization [facility] Address [address] [place] [address] Care Team Providers Care Machine Filler Name Role Phone Justen Gale MD Primary Care Provider [phone] Note from [facility],non-owned Affiliates and Associated Physician Practices is amultiple site organization consisting of ambulatory clinics and hospital sitesin [place], [place], [place] and [place]. This disclosure is being madepursuant to the Care Everywhere program and may not contain all information available regarding this patient. Last updated 18.[facility] Allergies * Adhesive Sensitivity(Rash) -Medium Criticality * [...] Gluc Sensor (FreeStyle Eileen 2 Sensor Systm) [facility](Started 07/11/2023) APPLY 1 SENSOR AND WEAR FOR [...] medical care, and heating? Somewhat hard 05/16/2023 [facility] - Occupational Stress [...] PM CDT Medical Devices Implanted Type Area Coloring Room Worker Device Identifier Shelf Expiration Date Model / Serial / Lot Lead Nrstm 60cm Penta 3mm Pdl 16 Chnl Implanted:Qt y: 1 on 09/16/2021 by Maxi Gregg MD at [facility] Right: Spine Thoracic Advanced [employer] [id number] / / Description:CAMILO Slnt Dura Duraseal Pg Trilysine Amine 5 Implanted:Qt y: 1 on 09/16/2021 by Maxi Gregg MD at [facility] Right: Spine Thoracic [employer] Davdi [id number] / / Description:CAMILO Proclaim Plus 5 Implanted:Qt y: 1 on 02/16/2023 by Maxi Gregg MD at [facility] Left: Back Cardenas Spine [id number] 11/07/2024 3670 / [id number] / Explanted Type Area Coloring Room Worker Device Identifier Shelf Expiration Date Model / Serial / Lot Gntr Nrstm 1.95inx2.19in Proclaim Elt Implanted:Qty: 1 on 09/16/2021 by Maxi Gregg MD at [facility] Explanted:Qty: 1 on 10/30/2021 by Maxi Gregg MD at [facility] Right: Spine Thoracic St [...] 02/16/2023) * ENDOTRACHEAL TUBE NOTE(Performed 02/16/2023) * AK INS/RPLCMT SPI NPGR POCKET(Performed 02/16/2023) Performed for [...] 12/24/2022) * COMPREHENSIVE METABOLIC PANEL(Performed 12/24/2022) * AK CYSTOURETHROSCOPY(Performed 06/08/2022) Performed for Microhematuria * URINALYSIS AUTO - POINT OF CARE (AMB) SLU(Performed 06/08/2022) Performed for Urinary tract infection with hematuria, site unspecified * AK MSR PVR U&/BLADD CAPCTY US NON(Performed 04/27/2022) [...] Escherichia coli(A) TERRANCE 08/03/2023 12:49 AM CDT [facility] MICROBIOLOGY Urine URINE SPECIMEN OBTAINED BY CLEAN [...] - MICROBIOLOGY O RDERABLES Performing Organization Address City/[facility]/ZIP Co de Phone Number [facility] MICRO[facility] [address] [place] [address], [facility] [phone] * (ABNORMAL) GLUCOSE - POINT OF CARE (08/01/2023 11:36 AM CDT) Only the most recent of153 resultswithin the time period is included. Pathologist [facility] Glucose WB/POC 164(H) 70 - 115 mg/dL 08/01/2023 11:40 AM CDT [facility] Specimen Type Cap Fingerstick 2023 11:40 AM CDT [facility] Blood BLOOD SPECIMEN / Unknown 08/01/2023 11:36 AM CDT 08/01/2023 11:40 AM CDT Watson Bearden MD LAB - POINT OF CARE ORDERABLES [facility] [address] [place] [address], [place] [phone] * (ABNORMAL) URINALYSIS REFLEX TO MICROSCOPIC NO CULTURE (08/01/2023 9:31 AM CDT) Only the most recent of5 resultswithin the time period is included. Color UA Yellow Straw, Yellow 08/01/2023 10:03 AM [facility] Clarity UA Slt Cloudy(A) Clear 08/01/2023 10:03 AM [facility] Specific [place] UA 1.015 1.005 - 1.030 08/01/2023 10:03 AM [facility] pH UA 5.0 5.0 - 8.0 pH 08/01/2023 10:03 AM [facility] Protein UA Negative Negative 08/01/2023 10:03 AM [facility] Glucose UA Negative Negative 08/01/2023 10:03 AM [facility] Ketone UA Negative Negative 08/01/2023 10:03 AM [facility] Bilirubin UA Negative Negative 08/01/2023 10:03 AM [facility] Blood UA 1+(A) Negative 08/01/2023 10:03 AM [facility] Nitrite UA Positive(A) Negative 08/01/2023 10:03 AM [facility] Leukocyte Esterase 3+(A) Negative 08/01/2023 10:03 AM [facility] Urobilinogen UA Negative Negative mg/dL 08/01/2023 10:03 AM [facility] RBC UA 11-20(A) None Seen, 0-2, 3-5 /HPF 08/01/2023 10:03 AM [facility] WBC UA 51-100(A) None Seen, 0-5 /HPF 08/01/2023 10:03 AM [facility] WBC Clumps Occasional( A) None /HPF 08/01/2023 10:03 AM [facility] Bacteria UA 3+(A) None /HPF 08/01/2023 10:03 AM [facility] Squamous Epithelial Cells UA 0-2 None Seen, 0-2, 3-5 /HPF 08/01/2023 10:03 AM [facility] Mucus UA 1+ /LPF 08/01/2023 10:03 AM [facility] Urine URINE SPECIMEN OBTAINED BY CLEAN CATCH PROCEDURE / Unknown Collection / Unknown 08/01/2023 9:31 AM T 08/01/2023 9:51 AM [facility] - 08/01/2023 10:03 AM CDT Watson Bearden MD LAB - URINALYSIS ORD ERABLES [facility] [address] [place] [address] [phone] * (ABNORMAL) CBC W/O DIFFERENTIAL (07/30/2023 1:28 AM CDT) Only the most recent of9 resultswithin the time period is included. WBC 11.6(H) 4.0 - 10.7 x10E9/L 07/30/2023 2:10 AM [facility] RBC Count 4.20 3.90 - 5.20 x10E12/L 07/30/2023 2:10 AM [facility] Hemoglobin 12.0 11.9 - 15.8 g/dL 07/30/2023 2:10 AM [facility] Hematocrit 37.1 34.8 - 46.1 % 07/30/2023 2:10 AM [facility] MCV 88.3 80.0 - 98.0 fL 07/30/2023 2:10 AM [facility] MCH 28.6 26.7 - 33.6 pg 07/30/2023 2:10 AM [facility] MCHC 32.3 31.7 - 36.3 g/dL 07/30/2023 2:10 AM [facility] RDW-CV 13.4 11.3 - 14.8 % 07/30/2023 2:10 AM [facility] Platelet Count 265 150 - 420 x10E9/L 07/30/2023 2:10 AM [facility] MPV 10.2 7.8 - 11.4 fL 07/30/2023 2:10 AM [facility] Blood BLOOD SPECIMEN / Unknown Lab Venipuncture / Unknown 07/30/2023 1:28 AM CDT 07/30/2023 2:04 AM CDT Brian Bravo MD LAB - HEMATOLOGY ORD ERABLES [facility] [address] [place] [address], [facility] [phone] * (ABNORMAL) RENAL FUNCTION PANEL (07/30/2023 1:28 AM [facility]) Only the most recent of3 resultswithin the time period is included. BUN 20 7 - 26 mg/dL 07/30/2023 2:31 AM [facility] Creatinine 0.67 0.56 - 0.96 mg/dL 07/30/2023 2:31 AM [facility] Sodium 136 136 - 145 mmol/L 07/30/2023 2:31 AM [facility] Potassium 4.4 3.5 - 4.5 mmol/L 07/30/2023 2:31 AM [facility] Chloride 101 98 - 107 mmol/L 07/30/2023 2:31 AM [facility] CO2 27 22 - 29 mmol/L 07/30/2023 2:31 AM [facility] Glucose 238(H) 70 - 115 mg/dL 07/30/2023 2:31 AM [facility] Albumin 2.9(L) 3.4 - 5.0 g/dL 07/30/2023 2:31 AM [facility] Calcium 9.4 8.4 - 10.2 mg/dL 07/30/2023 2:31 AM [facility] Phosphorus 3.0 2.9 - 5.1 mg/dL 07/30/2023 2:31 AM [facility] Anion Gap 8 6 - 16 07/30/2023 2:31 AM [facility] BUN/Creatinine Ratio 30(H) 7 - 23 07/30/2023 2:31 AM [facility] Osmolality Calculated 292 275 - 295 mOsm/kg 07/30/2023 2:31 AM [facility] eGFR by CKD-EPI >90 >=90 mL/min/1.7 3 m2 07/30/2023 2:31 AM [facility] Blood BLOOD SPECIMEN / Unknown Lab Venipuncture / Unknown 07/30/2023 1:28 AM CDT 07/30/2023 2:04 AM CDT Brian Bravo MD LAB - CHEMISTRY ANGEL SPEARS Performing Organization Address City/[facility]/ZIP Co de Phone Number [facility] [address] [place] [phone], [facility] [phone] * MAGNESIUM BLOOD (07/30/2023 1:28 AM CDT) Only the most recent of7 resultswithin the time period is included. Magnesium 1.8 1.6 - 2.6 mg/dL 07/30/2023 2:31 AM CDT [facility] Blood BLOOD SPECIMEN / Unknown Lab Venipuncture / Unknown 07/30/2023 1:28 AM CDT 07/30/2023 2:04 AM CDT Brian Bravo MD LAB - CHEMISTRY ANGEL SPEARS Performing Organization Address [facility]/ZIP Co de Phone Number [facility] [address] [place] [phone], [facility] [phone] * VAS LEFT VENOUS DUPLEX LE (07/27/2023 [...] Culture to follow 07/27/2023 6:58 AM CDT [facility] RBC UA 0-2 None Seen, 0-2, 3-5 /HPF 07/27/2023 6:58 AM CDT [facility] WBC UA 21-50(A) None Seen, 0-5 /HPF 07/27/2023 6:58 AM [facility] Bacteria UA Trace(A) None /HPF 07/27/2023 6:58 AM [facility] Squamous Epithelial Cells UA None Seen None Seen, 0-2, 3-5 /HPF 07/27/2023 6:58 AM [facility] Mucus UA 1+ /LPF 07/27/2023 6:58 AM [facility] Urine URINE SPECIMEN OBTAINED BY CLEAN CATCH PROCEDURE / Unknown Collection / Unknown 07/27/2023 6:19 AM CDT 07/27/2023 6:29 AM T [facility] - 07/27/2023 6:58 AM CDT Choco Martin MD LAB - URINALYSIS ORD ERABLES [facility] [address] [place] [address], [facility] [phone] * (ABNORMAL) URINALYSIS REFLEX MICROSCOPIC REFLEX CULTURE (07/27/2023 6:19 AM CDT) Only the most recent of6 resultswithin the time period is included. Color UA Yellow Straw, Yellow 07/27/2023 6:46 AM [facility] Clarity UA Slt Cloudy(A) Clear 07/27/2023 6:46 AM [facility] Specific [place] UA 1.012 1.005 - 1.030 07/27/2023 6:46 AM [facility] pH UA 5.0 5.0 - 8.0 pH 07/27/2023 6:46 AM [facility] Protein UA Negative Negative 07/27/2023 6:46 AM [facility] Glucose UA Negative Negative 07/27/2023 6:46 AM [facility] Ketone UA Negative Negative 07/27/2023 6:46 AM [facility] Bilirubin UA Negative Negative 07/27/2023 6:46 AM [facility] Blood UA 1+(A) Negative 07/27/2023 6:46 AM [facility] Nitrite UA Positive(A) Negative 07/27/2023 6:46 AM [facility] Leukocyte Esterase Trace(A) Negative 07/27/2023 6:46 AM CDT [facility] Urobilinogen UA Negative Negative mg/dL 07/27/2023 6:46 AM CDT [facility] Urine URINE SPECIMEN OBTAINED BY CLEAN CATCH PROCEDURE / Unknown Collection / Unknown 07/27/2023 6:19 AM CDT 07/27/2023 6:29 AM CDT Narrative [facility] - 07/27/2023 6:46 AM CDT Choco Martin MD LAB - URINALYSIS ORD ERABLES Performing Organization Address [facility]/ZIP Co de Phone Number [address] [phone], [facility] [phone] * PT-INR [facility] (07/26/2023 10:26 PM CDT) Only the most recent of9 resultswithin the time period is included. PT 14.2 12.1 - 14.8 Seconds 07/26/2023 10:56 PM CDT [facility] INR 1.1 See Comment 07/26/2023 10:56 PM CDT [facility] Comment:The suggested therap eutic range for standard coumadin (warfarin) therapy is an INR of 2.0-3.0. For high-risk patients (Mechanical Mitral Valve Prosthesis, etc.), the suggested prophylactic therapeutic range is an INR of 2.5-3.5. Blood BLOOD SPECIMEN / Unknown Venipuncture / Unknown 07/26/2023 10:26 PM CDT 07/26/2023 10:34 PM CDT Choco Martin MD LAB - COAGULATION OR DERABLES Performing Organization Address [facility]/ZIP Co de Phone Number [address] [phone], [facility] [phone] * TYPE + SCREEN PANEL (07/26/2023 10:26 PM CDT) Only the most recent of2 resultswithin the time period is included. Antibody Screen NEG 11:23 PM CDT [facility] BLOOD BANK LAB ABO Rh O POS 07/26/2023 11:23 PM T [facility] BLOOD BANK LAB Blood Bank BLOOD SPECIMEN / Unknown Venipuncture / Unknown 07/26/2023 10:26 PM CDT 07/26/2023 10:31 PM CDT Choco Martin MD LAB - BLOOD BANK ORD ERABLES [facility] BLOOD B[facility] LAB [address] [place] [address], [facility] [phone] * (ABNORMAL) CBC W AUTO DIFFERENTIAL (07/26/2023 10:26 PM CDT) Only the most recent of22 resultswithin the time period is included. WBC 10.0 4.0 - 10.7 x10E9/L 07/26/2023 10:42 PM [facility] RBC Count 4.04 3.90 - 5.20 x10E12/L 07/26/2023 10:42 PM [facility] Hemoglobin 11.7(L) 11.9 - 15.8 g/dL 07/26/2023 10:42 PM [facility] Hematocrit 36.1 34.8 - 46.1 % 07/26/2023 10:42 PM [facility] MCV 89.4 80.0 - 98.0 fL 07/26/2023 10:42 PM [facility] MCH 29.0 26.7 - 33.6 pg 07/26/2023 10:42 PM [facility] MCHC 32.4 31.7 - 36.3 g/dL 07/26/2023 10:42 PM [facility] RDW-CV 13.5 11.3 - 14.8 % 07/26/2023 10:42 PM [facility] Platelet Count 268 150 - 420 x10E9/L 07/26/2023 10:42 PM [facility] MPV 9.9 7.8 - 11.4 fL 07/26/2023 10:42 PM [facility] Neutrophil % 60.2 41.0 - 74.0 % 07/26/2023 10:42 PM CDT [facility] Lymphocyte % 28.9 17.0 - 47.0 % 07/26/2023 10:42 PM [facility] Monocyte % 7.6 3.0 - 11.0 % 07/26/2023 10:42 PM [facility] Eosinophil % 2.7 0.0 - 7.0 % 07/26/2023 10:42 PM T [facility] Basophil % 0.3 0.0 - 1.6 % 07/26/2023 10:42 PM [facility] Immature Granulocytes % 0.3 0.0 - 1.0 % 07/26/2023 10:42 PM [facility] Neutrophil Absolute 5.98 1.60 - 7.50 x10E9/L 07/26/2023 10:42 PM [facility] Lymphocyte Absolute 2.88 1.00 - 4.40 x10E9/L 07/26/2023 10:42 PM T [facility] Monocyte Absolute 0.76 0.15 - 1.00 x10E9/L 07/26/2023 10:42 PM [facility] Eosinophil Absolute 0.27 0.00 - 0.60 x10E9/L 07/26/2023 10:42 PM [facility] Basophil Absolute 0.03 0.00 - 0.13 x10E9/L 07/26/2023 10:42 PM [facility] Blood BLOOD SPECIMEN / Unknown Venipuncture / Unknown 07/26/2023 10:26 PM CDT 07/26/2023 10:34 PM CDT Choco Martin MD LAB - HEMATOLOGY ORD ERABLES [facility] [address] [place] [address], [facility] [phone] * (ABNORMAL) COMPREHENSIVE METABOLIC PANEL (07/26/2023 10:26 PM CDT) Only the most recent of22 resultswithin the time period is included. [facility] BUN 13 7 - 26 mg/dL 07/26/2023 11:00 PM [facility] Creatinine 0.63 0.56 - 0.96 mg/dL 07/26/2023 11:00 PM [facility] Sodium 141 136 - 145 mmol/L 07/26/2023 11:00 PM [facility] Potassium 3.9 3.5 - 4.5 mmol/L 07/26/2023 11:00 PM [facility] Chloride 104 98 - 107 mmol/L 07/26/2023 11:00 PM [facility] CO2 28 22 - 29 mmol/L 07/26/2023 11:00 PM [facility] Glucose 131(H) 70 - 115 mg/dL 07/26/2023 11:00 PM [facility] Calcium 9.5 8.4 - 10.2 mg/dL 07/26/2023 11:00 PM [facility] Protein Total 7.5 6.0 - 8.3 g/dL 07/26/2023 11:00 PM [facility] Albumin 3.1(L) 3.4 - 5.0 g/dL 07/26/2023 11:00 PM [facility] Bilirubin Total 0.5 0.2 - 1.2 mg/dL 07/26/2023 11:00 PM [facility] Alkaline Phosphatase 74 40 - 150 U/L 07/26/2023 11:00 PM [facility] ALT 19 5 - 55 U/L 07/26/2023 11:00 PM [facility] AST 17 5 - 34 U/L 07/26/2023 11:00 PM [facility] Anion Gap 9 6 - 16 07/26/2023 11:00 PM [facility] BUN/Creatinine Ratio 21 7 - 23 07/26/2023 11:00 PM [facility] Osmolality Calculated 294 275 - 295 mOsm/kg 07/26/2023 11:00 PM [facility] Albumin/Globulin Ratio 0.7(L) 1.1 - 2.3 07/26/2023 11:00 PM [facility] eGFR by CKD-EPI >90 >=90 mL/min/1.7 3 m2 07/26/2023 11:00 PM CDT [facility] Blood BLOOD SPECIMEN / Unknown Venipuncture / Unknown 07/26/2023 10:26 PM CDT 07/26/2023 10:34 PM CDT Choco Martin MD LAB - CHEMISTRY ANGEL SPEARS Performing Organization Address City/[facility]/ZIP Co de Phone Number [facility] [address] [place] [address], [place] [phone] * CARDIAC EKG ORDER (06/19/2023 1:38 PM [employer] P[employer] SUPERVIS[employer]) Only the most recent of6 resultswithin the time period is included. Narrative 06/19/2023 1:38 PM [employer]PER[employer] Ordered by an unspecified provider. Scanned Document CARDIAC SERVICES ORD ERABLES * TROPONIN-I HIGH SENSITIVE REFLEX 1HOUR (06/16/2023 4:44 PM [employer] SUPER[employer]) Only the most recent of5 resultswithin the time period is included. Troponin I High Sensitive <3 <=14 ng/L 06/16/2023 5:28 PM [employer]PER[employer] [facility] Delta Troponin I HS 06/16/2023 5:28 PM [employer] SUPERVIS[employer] [facility] Comment:Result exceeds linea rity range. A delta value is unable to be calculated. Blood BLOOD SPECIMEN / Unknown Venipuncture / Unknown 06/16/2023 4:44 PM [employer] SUPER[employer] 06/16/2023 4:50 PM [employer] SUPER[employer] Roger Snowden MD LAB - CHEMISTRY ANGEL SPEARS [facility] [address] [place] [phone], [place] [phone] * TROPONIN-I HIGH SENSITIVE BASELINE + 1HR (06/16/2023 3:28 PM [employer] SUPER[employer]) Only the most recent of5 resultswithin the time period is included. Troponin I High Sensitive <3 <=14 ng/L 06/16/2023 4:09 PM [employer] SUPER[employer] [facility] Blood BLOOD SPECIMEN / Unknown Venipuncture / Unknown 06/16/2023 3:28 PM [employer] SUPER[employer]OR 06/16/2023 3:37 PM [employer] SUPER[employer] Roger Snowden MD LAB - CHEMISTRY ANGEL SPEARS [facility] [address] [place] [address], [facility] [phone] * B-TYPE NATRIURETIC PEPTIDE (06/16/2023 3:28 PM [employer] SUPERVISOR) Only the most recent of2 resultswithin the time period is included. [facility] BNP 15 <100 pg/mL 06/16/2023 4:08 PM [employer] SUPERVIS[employer] [facility] Comment: A decision threshold of 100 [...] Unknown Venipuncture / Unknown 06/16/2023 3:28 PM [employer] SUPERVISOR 06/16/2023 3:37 PM [employer] SUPER[employer] Roger Snowden MD LAB - CHEMISTRY ANGEL SPEARS [address] [address], [facility] [phone] * XR CHEST 1VW PORTABLE (06/16/2023 3:17 PM [employer] SUPERVISOR) Only the most recent of5 resultswithin the time period is included. Anatomical Region Laterality Modality Chest Radiographic Lizeth ging 06/16/2023 3:17 PM [employer] SUPERVISOR Narrative 06/16/2023 4:20 PM [employer] SUPERVISOR PROCEDURE: ??XR CHEST 1VW PORTABLE, DATE/TIME OF EXAM: ??06/16/2023 3:18 PM, LOCATION ??[facility] INDICATION: R06.02: Shortness of breath [...] intact. Report dictated by Ulises Sanford MD, (Loan [employer]). I, Raquel Cedillo MD have personally reviewed and interpreted this examination/study. > Interpreting Provider: Raquel Cedillo MD on 06/16/2023 4:20 PM Procedure Note Raquel Cedillo MD - 06/16/2023 PROCEDURE: XR CHEST 1VW PORTABLE, DATE/TIME OF EXAM: 06/16/2023 3:18PM, LOCATION [facility] INDICATION: R06.02: Shortness of breath [...] intact. Report dictated by Ulises Sanford MD, ([employer]an [employer]). I, Raquel Cedillo MD have personally reviewed and interpreted this examination/study. > Interpreting Provider: Raquel Cedillo MD on 06/16/2023 4:20 PM Roger Snowden MD DIAGNOSTIC IMAGING O RDERABLES * EKG 12-LEAD (06/16/2023 8:33 AM [employer] SUPER[employer]OR) Only the most recent of9 resultswithin the time period is included. Ventricular Rate 94 BPM [facility] MUSE Atrial Rate 94 BPM H MUSE P-R Interval 144 ms H MUSE QRS Duration ms 80 ms H MUSE Q-T Interval ms 364 ms [facility] MUSE QTC Calculation (Bezet) 455 ms [facility] MUSE Calculated P [place] 15 degrees [facility] MUSE Calculated R [place] 2 degrees [facility] MUSE Calculated T [place] 50 degrees [facility] MUSE Interpretation EKG NORMAL SINUS RHYTHM NONSPECIFIC T WAVE ABNORMALITY ABNORMAL ECG WHEN COMPARED WITH ECG OF 28-MAY-2023 16:24, NO SIGNIFICANT CHANGE WAS FOUND Confirmed by JAGUAR ??DWAIN DURÁN ([id number]) on 06/24/2023 5:38:25 PM [facility] MUSE 06/16/2023 8:33 AM [employer] SUPERVISOR 06/24/2023 5:38 PM [employer] SUPER[employer]OR Roger Snowden MD ECG ORDERABLES [facility] MUSE * EMG WITH NERVE CONDUCTION STUDY (05/31/2023 11:59 PM [employer] SUPERVISOR) Narrative Stanford Saldana MD - 05/31/2023 11:59 PM [employer] SUPERVISOR Stanford Saldana MD ? 06/05/2023 ??5:21 PM [facility] [address], [address] [place], [place] [phone] Patient: Karly Marques V #: ??Physician: Stanford Saldana MD Sex: Female ID#: [id number] Ref Phys: Melly Banks [employer] LOCATION MANAGER-[employer] : [id number] Date: 05/31/2023 Indian Nanny: Christin Panchal Patient Complaints: The patient is [...] 0 Nml ND Waveforms: ? Melly Banks [employer] LOC[employer] MANAGER[employer] NEUROLOGY ORDERA BLES * CT LUMBAR SPINE W CONTRAST (05/29/2023 12:29 AM [employer] PIPE SUPERVISOR) Only the most recent of4 resultswithin the time period is included. Anatomical Region Laterality Modality Spine Computed Tomogra phy 05/29/2023 9:24 AM [employer] P[employer] SUPERVISOR Impressions 05/29/2023 9:34 AM [employer] PIPE SUPERVISOR IMPRESSION: 1. ??Lumbar degenerative change with neural foraminal stenosis on the right at L4-L5. 2. Chronic findings of sacroiliitis. > Interpreting Provider: Fabiola Alegre MD on 05/29/2023 9:34 AM Narrative 05/29/2023 9:34 AM [employer] PIPE SUPERVISOR PROCEDURE: ??CT LUMBAR SPINE W CONTRAST DATE/TIME [...] 2 OR 3 VW (05/28/2023 6:44 PM [employer] P[employer] SUPERVISOR) Only the most recent of2 resultswithin the time period is included. Anatomical Region Laterality Modality Spine Radiographic Lizeth ging 05/29/2023 10:2 6 AM [employer] P[employer] SUPERVISOR Impressions 05/29/2023 10:27 AM [employer] P[employer] SUPERVISOR IMPRESSION: Lumbar degenerative change with no radiographic evidence of acute osseous abnormality of the lumbar spine. > Interpreting Provider: Fabiola Alegre MD on 05/29/2023 10:27 AM Narrative 05/29/2023 10:27 AM [employer] P[employer] SUPERVISOR PROCEDURE: ??XR LUMBAR SPINE 2 OR 3VW [...] SPINE TRAUMA 2 VW (05/28/2023 6:44 PM [employer] PIPE SUPERVISOR) Anatomical Region Laterality Modality Spine Radiographic Lizeth ging 05/29/2023 10:2 5 AM [employer] P[employer] SUPERVISOR Impressions 05/29/2023 10:26 AM [employer] PIPE SUPERVISOR IMPRESSION: Degenerative changes with no radiographic evidence of acute osseous abnormality of the thoracic spine. > Interpreting Provider: Fabiola Alegre MD on 05/29/2023 10:26 AM Narrative 05/29/2023 10:26 AM ASBESTOS PIPE SUPERVISOR PROCEDURE: ??XR THORACIC SPINE 2VW DATE/TIME OF [...] METABOLIC PANEL (CALCIUM TOTAL) (05/16/2023 2:35 AM ASBESTOS PIPE SUPERVISOR) Only the most recent of5 resultswithin the time period is included. Glucose 174(H) 70 - 105 mg/dL 05/16/2023 2:52 AM ASBESTOS PIPE SUPERVISOR [facility] Sodium 140 136 - 145 mmol/L 05/16/2023 2:52 AM [facility] Potassium 4.1 3.5 - 5.1 mmol/L 05/16/2023 2:52 AM [facility] Chloride 107 98 - 107 mmol/L 05/16/2023 2:52 AM [facility] CO2 25 22 - 29 mmol/L 05/16/2023 2:52 AM [facility] Calcium 9.0 8.4 - 10.4 mg/dL 05/16/2023 2:52 AM [facility] Anion Gap 8 6 - 16 mmol/L 05/16/2023 2:52 AM [facility] BUN 13 7 - 26 mg/dL 05/16/2023 2:52 AM [facility] Creatinine 0.67 0.57 - 1.11 mg/dL 05/16/2023 2:52 AM [facility] eGFR by CKD-EPI >90 >=90 mL/min/1.7 3 m2 05/16/2023 2:52 AM [facility] Blood BLOOD SPECIMEN / Unknown Venipuncture / Unknown 05/16/2023 2:35 AM [employer]BESTOS PIPE SUPERVISOR 05/16/2023 2:35 AM ASBESTOS PIPE SUPERVISOR Mary Velasquez MD LAB - CHEMISTRY ANGEL SPEARS [place] Organization Address City/State/ZIP Co de Phone Number [facility] [address] [place] [address] * (ABNORMAL) C-REACTIVE PROTEIN (04/17/2023 8:59 PM ASBESTOS PIPE SUPERVISOR) Only the most recent of9 resultswithin the time period is included. Pathologist [facility] C-Reactive Protein 2.98(H) <=0.50 mg/dL 04/17/2023 9:15 PM ASBESTOS PIPE SUPERVISOR [facility] Blood BLOOD SPECIMEN / Unknown Venipuncture / Unknown 04/17/2023 8:59 PM ASBESTOS PIPE SUPERVISOR 04/17/2023 8:59 PM ASBESTOS PIPE SUPERVISOR Yasmin Matthew DO LAB - CHEMISTRY ANGEL SPEARS Performing Organization Address City/[facility]/ZIP Co de Phone Number [facility] [address] [place] [phone] * (ABNORMAL) ERYTHROCYTE SEDIMENTATION RATE (04/17/2023 8:59 PM ASBESTOS PIPE SUPERVISOR) Only the most recent of9 resultswithin the time period is included. Pathologist [facility] Erythrocyte Sedimentation Rate Automated 82(H) 0 - 30 MM/HR 04/17/2023 9:23 PM ASBESTOS PIPE SUPERVISOR [facility] Blood BLOOD SPECIMEN / Unknown Venipuncture / Unknown 04/17/2023 8:59 PM ASBESTOS PIPE SUPERVISOR 04/17/2023 8:59 PM ASBESTOS PIPE SUPERVISOR Yasmin Matthew DO LAB - HEMATOLOGY ORD NEGRITA Performing Organization Address [facility]/ZIP Co de Phone Number [facility] [address] [place] [phone] * PHOSPHORUS BLOOD (03/20/2023 3:55 AM ASBESTOS PIPE SUPERVISOR) Only the most recent of4 resultswithin the time period is included. Phosphorus 2.9 2.9 - 5.1 mg/dL 03/20/2023 4:41 AM ASBESTOS PIPE SUPERVISOR [facility] Blood BLOOD SPECIMEN / Unknown Venipuncture / Unknown 03/20/2023 3:55 AM ASBESTOS PIPE SUPERVISOR 03/20/2023 4:11 AM ASBESTOS PIPE SUPERVISOR Coco Harris MD LAB - CHEMISTRY ANGEL SPEARS [address] [address], [place] [phone] * SARS-COV-2 (COVID-19) RAPID (03/19/2023 1:50 PM ASBESTOS PIPE SUPERVISOR) COVID-19 PCR Not detected Not detected 03/19/20 23 2:29 PM ASBESTOS PIPE SUPERVISOR [facility] Microbiology SPECIMEN FROM NASOPHARYNGEAL STRUCTURE / Unknown Collection / Unknown 03/19/2023 1:50 PM ASBESTOS PIPE SUPERVISOR 03/19/2023 1:55 PM ASBESTOS PIPE SUPERVISOR Narrative [facility] - 03/19/2023 2:29 PM ASBESTOS PIPE SUPERVISOR The [employer] Xpert Xpress SARS-COV-2 has been authorized by [...] Sisi Ricks PA-C LAB - MICROBIOLOGY ORDERABLES [address] [address], [facility] [phone] * VANCOMYCIN LEVEL TROUGH (02/22/2023 7:59 AM CDT) Only the most recent of2 resultswithin the time period is included. Vancomycin Trough 14.6 10.0 - 20.0 ug/mL 02/22/2023 10:46 AM CDT [facility] Blood BLOOD SPECIMEN / Unknown Lab Venipuncture / Unknown 02/22/2023 7:59 AM CDT 02/22/2023 9:51 AM CDT Narrative [facility] - 02/22/2023 10:46 AM CDT See institution protocol. Berenice Hawkins MD LAB - CHEMISTRY NILESNicholas VOGELSIMRAN Performing Organization Address [facility]/ZIP Co de Phone Number [address] [address], [facility] [phone] * VANCOMYCIN LEVEL PEAK (02/22/2023 2:46 AM CDT) Vancomycin Peak 25.3 25.0 - 40.0 ug/mL 02/22/2023 3:13 AM CDT [facility] Blood BLOOD SPECIMEN / Unknown Venipuncture / Unknown 02/22/2023 2:46 AM CDT 02/22/2023 2:53 AM CDT Narrative [facility] - 02/22/2023 3:13 AM CDT See institution protocol. Data does not support the use of vancomycin peak concentration for efficacy. Berenice Hawkins MD LAB - CHEMISTRY ANGEL SPEARS Performing Organization Address [facility] de Phone Number [address] [address], [facility] [phone] * CT ABDOMEN PELVIS W CONTRAST (02/22/2023 [...] or pelvis. Report drafted by Edgar Andersresident) SELVIN Perez MD have personally reviewed and interpreted [...] resultswithin the time period is included. Pathologist [facility] Culture No growth day 5 TERRANCE 02/26/2023 10:02 PM ASBESTOS PIPE SUPERVISOR [facility] Blood PERIPHERAL BLOOD / Unknown Venipuncture / Unknown 02/21/2023 8:35 PM CDT 02/21/2023 8:38 PM CDT Bereince Hawkins MD LAB - MICROBIOLOGY O RDERABLES [facility] [address] [place] [address], [facility] [phone] * LACTIC ACID BLOOD REFLEX TO REPEAT (02/21/2023 6:30 PM CDT) Pathologist [facility] Lactic Acid-Stat 1.8 <=2.0 mmol/L 02/21/2023 6:56 PM CDT [facility] Blood BLOOD SPECIMEN / Unknown Venipuncture / Unknown 02/21/2023 6:30 PM CDT 02/21/2023 6:35 PM CDT Berenice Hawkins MD LAB - CHEMISTRY ANGEL SPEARS [facility] [address] [place] [address], [place] [phone] * HEPATITIS C AB SCREEN RFLX NAAT QUANT (02/21/2023 6:30 PM CDT) Hepatitis C Antibody Non-react hugh Non-reac tive 02/21/2023 7:32 PM CDT [facility] Comment:Hepatitis C Antibody screen indicates [...] Solitario MD LAB - CHEMISTRY ANGEL SPEARS [facility] [address] [place] [address], [facility] [phone] * CARDIAC RHYTHM STRIP ORDER (02/20/2023 5:39 [...] > Dictated by Alvarez Sanderson MD (residential interior designer). I, Vi Bell MD have personally reviewed and interpreted this examination/study. > Interpreting Provider: Vi Bell MD on 02/18/2023 8:48 AM Narrative 02/18/2023 8:48 AM CDT PROCEDURE: ??CT CHEST PE W ABD PELVIS W CONT, DATE/TIME OF EXAM: ??02/18/2023 4:04 AM, LOCATION ??[facility] INDICATION: G89.18: Post-op pain R07.9: [...] CONT, DATE/TIME OF EXAM:02/18/2023 4:04 AM, LOCATION [facility] INDICATION: G89.18: Post-op pain R07.9: [...] > Dictated by Alvarez Sanderson MD (residential interior designer). I, Vi Bell MD have personally reviewed [...] Event Date/Time: ??02/16/2023 1:21 PM Procedure: intubation (80344). Procedure Section: ?? Sedation: under general anesthesia. [...] - 14.8 sec 02/16/2023 1:14 PM CDT [facility] INR 1.2(H) 0.9 - 1.1 02/16/2023 1:14 PM CDT [facility] Blood BLOOD SPECIMEN / Unknown Venipuncture / Unknown 02/16/2023 12:20 PM CDT 02/16/2023 12:30 PM CDT Narrative [facility] - 02/16/2023 1:14 PM CDT Conventional Warfarin Anticoagulant Therapy: INR Reference Range: ??2.0-3.0 Intensive Warfarin Anticoagulant Therapy: INR Reference Range: ? 2.5-3.5 Melly JEAN BAPTISTE LAB - COAGULATIO N ORDERABLES Performing Organization Address [facility] Co de Phone Number [facility] [address] [place] [phone] * PTT (02/06/2023 1:30 PM CDT) [facility] PTT 35.4 23.0 - 38.4 sec 02/06/2023 1:50 PM CDT [facility] Blood BLOOD SPECIMEN / Unknown Lab Venipuncture / Unknown 02/06/2023 1:30 PM CDT 02/06/2023 1:33 PM CDT Narrative [facility] - 02/06/2023 1:50 PM CDT Heparin Therapeutic Range for PTT: ??69.0 - 110.0 seconds. Maxi Gregg MD LAB - COAGULATIO N ORDERABLES Performing Organization Address [facility] Co de Phone Number [facility] [address] [place] [phone] * CT ANGIO BRAIN AND NECK (12/26/2022 [...] DATE/TIME OF EXAM: ??12/26/2022 9:43 AM, LOCATION ??[facility] INDICATION: R51.9: Acute intractable headache, [...] NECK, DATE/TIME OF EXAM: 12/26/2022 9:43AM, LOCATION [facility] INDICATION: R51.9: Acute intractable headache, [...] Bonifacio Carrillo MD on 12/26/2022 11:59 PM Jerord Rodriguez MD CT ORDERABLES * (ABNORMAL) HEMOGLOBIN A1C (12/25/2022 3:56 AM CDT) Only the most recent of2 resultswithin the time period is included. Hemoglobin A1c 8.6(H) <=5.6 % 12/25/2022 2:47 PM CDT [facility] Estimated Average Glucose 200 mg/dL 12/25/2022 2:47 PM CDT [facility] Comment: HbA1c Interpretation: Normal : < 5.7% Pre-diabetes: 5.7-6.4% Diabetes: Equal to or greater than 6.5% Test results diagnostic of diabetes should be repeated for confirmation. Treatment target values recommended by ADA and other clinical organizations should be used to evaluate metabolic control in patients. Reference: [place] [employer], Standards of Care in Diabetes [...] Rodriguez MD LAB - CHEMISTR Y ORDERABLES [facility] [address] [address], [facility] [phone] * AK CYSTOURETHROSCOPY (06/08/2022 2:18 PM ASBESTOS PIPE SUPERVISOR) Narrative Opal Orellana APRN-CNP - 06/08/2022 2:18 PM ASBESTOS PIPE SUPERVISOR Opal Orellana APRN-CNP ? 06/09/2022 ??9:33 AM [...] POCT - Ketones UA POCT - Specific [place] UA 1.030 Blood Urine POCT 1+ pH UA 5.5 Protein UA +- Urobilinogen UA - Nitrite UA - WBC UA - Urine URINE / Unknown 06/08/2022 Opal [employer] M[employer] PLUGGER LAB - POINT O F CARE ORDERABLES * AK MSR PVR U&/BLADD CAPCTY US NON (04/27/2022 1:24 PM ASBESTOS PIPE SUPERVISOR) Narrative Brigitte Gee MA - 04/27/2022 1:24 PM ASBESTOS PIPE SUPERVISOR Brigitte Gee MA ? 04/27/2022 ??1:24 PM Bladder scan completed. 38ml post void residual. Opal JEAN BAPTISTE PROCEDURE/MIN OR SURGICAL ORDERABLES * PROC ENDOSCOPY-LARYNX (12/14/2021 8:58 AM CDT) Narrative David Cuevas MD - 12/14/2021 8:58 AM CDT David Cuevas MD ? 12/14/2021 ??9:28 AM Procedure Note Anesthesia: Lidocaine 2% and Nadir-Synephrine 1/2% Endoscopy Type: ??Flexible Ckiys-Pqgwlhhlaespop-Gblxveevmdhq Procedure Details: Informed consent was obtained. ??The [...] Yellow Straw, Yellow 12/06/2021 3:05 PM CDT [facility] Clarity UA Clear Clear 12/06/2021 3:05 PM CDT [facility] Specific [place] UA 1.016 1.005 - 1.030 12/06/2021 3:05 PM T [facility] pH UA 5.0 5.0 - 8.0 pH 12/06/2021 3:05 PM T [facility] Protein UA Negative Negative 12/06/2021 3:05 PM [facility] Glucose UA 1+(A) Negative 12/06/2021 3:05 PM [facility] Ketone UA Negative Negative 12/06/2021 3:05 PM [facility] Bilirubin UA Negative Negative 12/06/2021 3:05 PM [facility] Blood UA 1+(A) Negative 12/06/2021 3:05 PM [facility] Nitrite UA Negative Negative 12/06/2021 3:05 PM [facility] Leukocyte Esterase Negative Negative 12/06/2021 3:05 PM [facility] Urobilinogen UA Negative Negative mg/dL 12/06/2021 3:05 PM [facility] RBC UA 0-2 None Seen, 0-2, 3-5 /HPF 12/06/2021 3:05 PM [facility] WBC UA 0-5 None Seen, 0-5 /HPF 12/06/2021 3:05 PM [facility] Squamous Epithelial Cells UA None Seen None Seen, 0-2, 3-5 /HPF 12/06/2021 3:05 PM [facility] Mucus UA 1+ /LPF 12/06/2021 3:05 PM [facility] Urine URINE SPECIMEN OBTAINED BY CLEAN CATCH PROCEDURE / Unknown Collection / Unknown 12/06/2021 1:29 PM CDT 12/06/2021 2:47 PM CDT Narrative [facility] - 12/06/2021 3:05 PM CDT Culture Not Indicated Jazmyne Torres MD LAB - URI NALYSIS ORDERABLES [facility] [address] [place] [address], [facility] [phone] * XR HUMERUS RIGHT 2VW OR MORE (12/02/2021 3:30 PM CDT) Anatomical Region Laterality Modality Upper Extremity Radiographic Lizeth ging 12/02/2021 3:30 PM CDT Narrative 12/02/2021 3:46 PM CDT PROCEDURE: ??XR HUMERUS RIGHT 2VW, DATE/TIME OF EXAM: ??12/02/2021 3:31 PM, LOCATION ??[facility] INDICATION: T82.9XXA: Central line complication, [...] Report dictated by Miracle Moody MD (residential interior designer). Raquel Perez MD have personally reviewed and interpreted this examination/study. > Interpreting Provider: Raquel Cedillo MD on 12/02/2021 3:46 PM Procedure Note Raquel Cedillo MD - 12/02/2021 PROCEDURE: XR HUMERUS RIGHT 2VW, DATE/TIME OF EXAM: 12/02/2021 3:31 PM, LOCATION [facility] INDICATION: T82.9XXA: Central line complication, [...] Report dictated by Miracle Moody MD (residential interior designer). Raquel Perez MD have personally reviewed and interpreted this examination/study. > Interpreting Provider: Raquel Cedillo MD on 12/02/2021 3:46 PM Hannah Martínez PA-C DIAGNOSTIC IMAGING O RDERABLES * LIPASE BLOOD (12/02/2021 12:31 PM CDT) Only the most recent of2 resultswithin the time period is included. Lipase 19 8 - 78 U/L 12/02/2021 1:25 PM CDT [facility] Blood BLOOD SPECIMEN / Unknown Venipuncture / Unknown 12/02/2021 12:31 PM CDT 12/02/2021 12:59 PM CDT Aaron Matias PA-C LAB - CHEMISTRY ANGEL SPEARS Performing Organization Address [facility]/ZIP Co de Phone Number [address] [phone], [facility] [phone] * (ABNORMAL) PTT [facility] (11/13/2021 1:07 AM CDT) Only the most recent of7 resultswithin the time period is included. APTT 77.2(H) 23.0 - 38.4 Seconds 11/13/2021 1:33 AM CDT [facility] Comment:Suggested therapeuti c range for full dose I.V. unfractionated heparin therapy for venous thromboembolism is 71 to 109 seconds. Blood BLOOD SPECIMEN / Unknown Venipuncture / Unknown 11/13/2021 1:07 AM CDT 11/13/2021 1:11 AM CDT Tima Cardenas MD LAB - COAGULATI ON ORDERABLES Performing Organization Address [facility]/ZIP Co de Phone Number [address] [phone], [facility] [phone] * ECHO COMPLETE (11/12/2021 4:10 PM CDT) Anatomical Region Laterality Modality Chest Echo 11/12/2021 3:25 PM CDT Narrative Procedure Note Tamika Cowan MD - 11/12/2021 Aly Perkins III, MD ECHOCARDIOGRAPHY RADIANT * (ABNORMAL) PROCALCITONIN LEVEL (11/12/2021 12:33 PM CDT) PROCALCITONIN 0.20(H) <=0.10 ng/mL 11/12/2021 3:30 PM CDT [facility] Blood BLOOD SPECIMEN / Unknown Venipuncture / Unknown 11/12/2021 12:33 PM CDT 11/12/2021 12:42 PM CDT Narrative [facility] - 11/12/2021 3:30 PM CDT The [...] Change in Procalcitonin Calculator is available at [email or web address] ?? If clinical picture has not improved and PCT remains high, reevaluate and consider treatment failure or other causes. Aly Perkins III, MD LAB - CHEMISTRY O RDERABLES [facility] [address] [place] [address], [facility] [phone] * VAS RIGHT VENOUS DUPLEX UE (11/12/2021 [...] <0.010 <0.032 ng/mL 11/11/2021 11:06 PM CDT [facility] Blood BLOOD SPECIMEN / Unknown Venipuncture / Unknown 11/11/2021 10:38 PM CDT 11/11/2021 10:43 PM CDT Sisi Ricks PA-C LAB - CHEMISTRY OR DERABLES Performing Organization Address City/State/[facility] Co de Phone Number [address] [address], [facility] [phone] * XR CHEST 2VW (11/11/2021 5:26 PM [...] dictated by David Charlton MD, PhD (residential interior designer). I, Dr. VI BELL have personally reviewed [...] dictated by David Charlton MD, PhD (residential interior designer). I, Dr. VI BELL have personally reviewed [...] Impression: Successful placement of 39 cm 5 Spanish dual-lumen power PICC via the right basilic vein with the tip at the cavo-atrial junction. Note: The catheter can be used now. Dr. Fitzgerald was present and performed/supervised the entire procedure. Dictated by Jovi Goode MD (residential interior designer) This report was approved ??by Jovi Goode ?? on 11/05/2021 3:06 PM . I, Dr. BAUDILIO FITZGERALD have personally reviewed and interpreted this examination/study. This report was electronically signed by BAUDILIO FITZGERALD ??on 11/12/2021 12:02 PM . Narrative 11/12/2021 12:02 PM CDT History: 66 year old female with postoperative infection requiring terminal supervisor antibiotics. Operators: 1.Dr. Baudilio Fitzgerald, Attending Physician [...] year old female with postoperative infection requiring terminal supervisor antibiotics. Operators: 1.Dr. Baudilio Fitzgerald, Attending Physician [...] Impression: Successful placement of 39 cm 5 Spanish dual-lumen power PICC via the right basilic vein with the tip at the cavo-atrial junction. Note: The catheter can be used now. Dr. Fitzgerald was present and performed/supervised the entireprocedure. Dictated by Jovi Goode MD (residential interior designer) This report was approved by Jovi Goode on 11/05/2021 3:06 PM . I, Dr. BAUDILIO FITZGERALD have personally reviewed and interpreted this examination/study. This report was electronically signed by BAUDILIO FITZGERALD on11/12/2021 12:02 PM . Maxi Gregg MD IR ORDERABLES * (ABNORMAL) D-DIMER (11/05/2021 1:50 PM CDT) [facility] D-Dimer Quantitative 1.28(H) <=0.50 mcg/mL FEU 11/05/2021 2:26 PM CDT [facility] Comment: In the absence of [...] Gregg MD LAB - COAGULATIO N ORDERABLES [facility] [address] [address], [facility] [phone] * CULTURE FUNGUS OTHER+FUNGUS SMEAR (10/30/2021 4:51 PM CDT) Culture No fungus isolated TERRANCE 11/29/2021 12:06 PM CDT [facility] Fungus Stain No yeast or hyphae seen 11/29/2021 12:06 PM CDT [facility] Microbiology SPECIMEN FROM WOUND / Unknown Collection / Unknown 10/30/2021 4:51 PM CDT 10/30/2021 5:24 PM CDT Maxi Gregg MD LAB - MICROBIOLO GY ORDERABLES [facility] [address] [place] [address], [facility] [phone] * (ABNORMAL) CULTURE FLUID+GRAM STAIN (10/30/2021 4:51 PM CDT) Culture Heavy Escherichia coli(AA) TERRANCE 11/03/2021 12:18 AM CDT [facility] Comment:Strain 1 Culture Heavy Escherichia coli(AA) TERRANCE 11/03/2021 12:18 AM CDT [facility] Comment:Strain 2 Gram Stain Heavy Polymorphonuclear cells(AA) 11/03/2021 12:18 AM CDT [facility] Gram Stain Light Gram-negative bacilli(AA) 11/03/2021 12:18 AM CDT [facility] Fluid BODY FLUID SPECIMEN / Unknown [...] TERRANCE <=0.25 ug/mL: Susceptible Escherichia coli Piperacillin-tazobactam TERRACNE <=4 ug/mL: Susceptible Escherichia coli Tobramycin TERRANCE [...] Gregg MD LAB - MICROBIOLO GY ORDERABLES [facility] [address] [place] [address] [phone] * CULTURE ANAEROBE (10/30/2021 4:51 PM CDT) Culture No anaerobic organisms isolated TERRANCE 11/04/2021 11:12 AM CDT [facility] Microbiology SPECIMEN FROM WOUND / Unknown Collection / Unknown 10/30/2021 4:51 PM CDT 10/30/2021 5:24 PM CDT Maxi Gregg MD LAB - MICROBIOLO GY ORDERABLES [facility] [address] [place] [address], [facility] [phone] * ETT LINE PERFORMABLE (10/30/2021 4:22 PM CDT) Narrative Lyubov Umanzor MD - 10/30/2021 4:22 PM CDT Lyubov Umanzor MD ? 10/30/2021 ??4:22 PM Endotracheal Tube Placement: ? Patient Location: OR. Intubation Event Date/Time: ??10/30/2021 3:59 PM Procedure: intubation ([id number]). Procedure Section: ?? Sedation: IV sedation. Indications [...] O POS 10/30/2021 2:2 7 PM CDT [facility] Blood Bank BLOOD SPECIMEN / Unknown 10/30/2021 11:31 AM CDT 10/30/2021 1:58 PM CDT Della Sagastume MD LAB - BLOOD BANK ORD ERABLES [facility] [address] [place] [address], [facility] [phone] * [place] GIANFRANCO SURGERY (09/16/2021 9:30 AM CDT) Narrative [facility] - 09/16/2021 2:19 PM CDT For details of this study, please see the providers note. Maxi Gregg MD FLUOROSCOPY ANGEL SPEARS Performing Organization Address City/[facility]/ZIP Co de Phone Number [facility] [address] [place] [address] * ETT LINE PERFORMABLE (09/16/2021 8:19 AM CDT) Narrative Mary Rinaldi APRN-CRNA - 09/16/2021 8:19 AM CDT Mary Rinaldi APRN-CRNA ? 09/16/2021 ??8:20 AM Endotracheal Tube Placement: ? Patient Location: OR. Intubation Event Date/Time: ??09/16/2021 7:45 AM Procedure: intubation ([id number]). Procedure Section: ?? Sedation: under general anesthesia. [...] URINALYSIS W/MICROSCOPIC NO CULTURE (04/20/2017 1:25 AM ASBESTOS PIPE SUPERVISOR) Only the most recent of2 resultswithin the time period is included. Color UA Yellow Straw, Yellow, Colorless, Light Yellow [facility] Clarity UA Clear Clear [facility] Specific [place] UA 1.020 1.001 - 1.030 [facility] [...] HOSPITAL Urine specimen (specimen) 04/20/2017 1:25 AM [employer]BESTOS PIPE SUPERVISOR 04/20/2017 1:30 AM ASBESTOS PIPE SUPERVISOR Epi Solitario MD LAB - URINALYSIS ORD ERABLES [address] [phone] * LAMBDA LIGHT CHAINS FREE (01/27/2012 11:57 AM CDT) Immunoglobulin Lambda Free Light Chain 16.0 5.7 - 26.3 mg/L [facility] 01/27/2012 11:5 7 AM CDT 01/27/2012 12:42 PM CDT Noe Griffiths MD LAB - CHEMISTRY ANGEL SPEARS [address] [phone] * PROTEIN ELECTROPHORESIS WO INTERP BLOOD (01/27/2012 11:57 AM CDT) Interpretation Serum Protein SEE NOTE [facility] Comment: Serum protein electrophoresis shows characteristic [...] by calling the Special Chemistry Laboratory at [phone]. ?Marce Jerez, Ph.D. Protein Total 7.4 6.0 - 8.3 g/dL [facility] Albumin 3.8 3.3 - 5.6 G/DL [facility] Alpha-1 Globulins 0.2 0.1 - 0.3 G/DL [facility] Alpha-2 Globulins 0.8 0.5 - 1.0 G/DL [facility] Beta Globulins 1.1 0.6 - 1.1 G/DL [facility] Gamma Globulins 1.5 0.6 - 1.6 G/DL [facility] 01/27/2012 11:5 7 AM CDT 01/27/2012 12:42 PM CDT Noe Griffiths MD LAB - CHEMISTRY [facility] Performing Organization Address City/[facility]/ZIP Co de Phone Number [address] [phone] * [place] BLOOD SCREEN (01/27/2012 11:57 AM CDT) HONEY NONE DETECTED NONE DETECT [facility] 01/27/2012 11:5 7 AM CDT 01/27/2012 12:42 PM CDT Noe Griffiths MD LAB - CHEMISTRY ANGEL SPEARS Performing Organization Address [facility] Co de Phone Number [address] [phone] * IMMUNOFIXATION (01/27/2012 11:57 AM CDT) Immunofixation Result SEE NOTE [facility] Comment: 1. Serum immunofixation electrophoresis shows [...] - CHEMISTRY ANGEL SPEARS Performing Organization Address [facility] Co de Phone Number [address] [phone] * TRANSFERRIN (01/27/2012 11:57 AM CDT) [facility] Transferrin 266 174 - 382 mg/dL [facility] Transferrin Saturation % 24 16 - 50 % [facility] 01/27/2012 11:5 7 AM CDT 01/27/2012 12:42 PM CDT Noe Griffiths MD LAB - CHEMISTRY ANGEL SPEARS Performing Organization Address [facility] Co de Phone Number [address] [phone] * (ABNORMAL) T3 FREE (01/27/2012 11:57 AM CDT) Pathologist [facility] T3 Free 4.0(H) 1.7 - 3.7 pg/mL [facility] 01/27/2012 11:5 7 AM CDT 01/27/2012 12:42 PM CDT Noe Griffiths MD LAB - CHEMISTRY ANGEL SPEARS Performing Organization Address [facility] Co de Phone Number [address] [phone] * [place]/LAMBDA LITE CHAIN FREE PANEL (01/27/2012 11:57 AM CDT) Free [place] Quantitative 15.8 3.3 - 19.4 mg/L [facility] Free [place]/Lambda Ratio 0.99 0.26 - 1.65 [facility] Interpretation Free Lite SEE NOTE [facility] Comment: INTERPRETATION: These results do not [...] - CHEMISTRY ANGEL SPEARS Performing Organization Address [facility] Co de Phone Number [address] [phone] * RETIC COUNT (01/27/2012 11:57 AM CDT) Reticulocyte % 1.7 0.3 - 2.0 % [facility] Reticulocyte Absolute 0.08 0.02 - 0.10 # [facility] 01/27/2012 11:5 7 AM CDT 01/27/2012 12:42 PM CDT Noe Griffiths MD LAB - HEMATOLOGY NILES REES [address] [phone] * LDH BLOOD (01/27/2012 11:57 AM CDT) LDH Total 201 125 - 243 Units/L [facility] 01/27/2012 11:5 7 AM CDT 01/27/2012 12:42 PM CDT Noe Griffiths MD LAB - CHEMISTRY ANGEL SPEARS Performing Organization Address City/[facility]/ZIP Co de Phone Number [address] [phone] * IRON BLOOD (01/27/2012 11:57 AM CDT) Pathologist [facility] Iron 81 40 - 150 mcg/dL [facility] 01/27/2012 11:5 7 AM CDT 01/27/2012 12:42 PM CDT Noe Griffiths MD LAB - CHEMISTRY ANGEL SPEARS Performing Organization Address City/[facility]/ZIP Co de Phone Number [address] [phone] * CK BLOOD (01/27/2012 11:57 AM CDT) Pathologist [facility] CK Total 85 30 - 200 Units/L [facility] 01/27/2012 11:5 7 AM CDT 01/27/2012 12:42 PM CDT Noe Griffiths MD LAB - CHEMISTRY ANGEL SPEARS [address] [phone] * (ABNORMAL) TSH (01/27/2012 11:57 AM CDT) Pathologist [facility] TSH 0.103(L) 0.350 - 4.940 uIU/mL [facility] 01/27/2012 11:5 7 AM CDT 01/27/2012 12:42 PM CDT Noe Griffiths MD LAB - CHEMISTRY ANGEL SPEARS Performing Organization Address City/[facility] Co de Phone Number [address] [phone] * T4 FREE (01/27/2012 11:57 AM CDT) T4 Free 1.0 0.7 - 1.5 ng/dL [facility] 01/27/2012 11:5 7 AM CDT 01/27/2012 12:42 PM CDT Noe Griffiths MD LAB - CHEMISTRY ANGEL SPEARS Performing Organization Address [facility] Co de Phone Number [address] [phone] * (ABNORMAL) T3 TOTAL (01/27/2012 11:57 AM CDT) T3 Total 167(H) 58 - 159 ng/dL [facility] 01/27/2012 11:5 7 AM CDT 01/27/2012 12:42 PM CDT Noe Grifftihs MD LAB - CHEMISTRY ANGEL SPEARS Performing Organization Address City/[facility] Co de Phone Number [address] [phone] * FERRITIN (01/27/2012 11:57 AM CDT) Ferritin 105 13 - 204 ng/mL [facility] 01/27/2012 11:5 7 AM CDT 01/27/2012 12:42 PM CDT Noe Griffiths MD LAB - CHEMISTRY ANGEL SPEARS [address] [phone] * MRI LUMBAR SPINE WO CONTRAST (12/16/2011 [...] the time period is included. 12/08/2011 Narrative [facility] - 12/08/2011 3:03 PM CDT Historical Provider LAB - CHEMISTRY O RDERABLES Performing Organization Address City/State/[facility] Co de Phone Number [facility] [address] Care Teams Machine Filler Relationship Specialty Start Date End Date Justen Gale MD PCP - General 07/05/21
--- OUTSIDE RECORDS SUMMARY | 2024-04-26 06:52 | XMS_ITS | Encounter Summary ---
Author Organization [facility] Address [address] [place] [address] Care Team Providers Care Palliative Care Specialist Name Role Phone Justen Gale MD Primary Care Provider [phone] Reason for Visit * Reason Onset Date Comments Transitions Of Care 08/22/2023 Encounter Details Date Type Department Care Team (Late st Contact Info) Description 08/22/2023 Telephone [facility] CARE COORDINATION [address] [place] [address] [phone] Opal Burch, RN Transitions Of Care Social [...] medical care, and heating? Somewhat hard 05/16/2023 [facility] [place] of Occupat ional Health - Occupational Stress [...] RN - 08/22/2023 12:11 PM CDT Transition Power Shovel Operator (TCC) Kary burch RN post discharge follow-up contact by telephone: Patient with recent IP discharge from [facility] on 07/31 and had Readmission risk assessment (score of 25). As such, Patient receiving 1-2 week follow-up call. This TCC contacted pt by telephone ([phone]) to complete pt post-discharge follow-up contact. 1) How are you feeling? I'm doing better, I just got out of the hospital last week 2) How is your mobility? walker 3) New concerns or problems? No current issues 4) Have you had to go the ER for any reason? x1 admitted to [facility] system dc 1 week ago 5) Any [...] Pt stated, she was recently dced from [facility] last week. pt indicated she was able [...] time. TCC encouraged pt to call this movie writer with questions, concerns, barriers to care, and/or additional resources if needed. pt verbalized understanding and agreement with plan. TCC will co ntinue to provide post-discharge monitoring for 30 days post-discharge with target end date of program and intervention(s) set for 08/29. no follow-up needs identified or indicated at this time. Call Duration: 20 min Opal Burch RN, MSN Transition Power Shovel Operator Office: [phone] 08/22/2023 documented in this encounter Plan of Treatment Not on file documented as of this encounter Visit Diagnoses Not on filedocumented in this encounter Care Teams Palliative Care Specialist Relationship Specialty Start Date End Date Justen Gale MD PCP - General 07/05/21 documented as of this encounter
--- OUTSIDE RECORDS SUMMARY | 2024-04-26 06:52 | XMS_ITS | Encounter Summary ---
Author Organization [facility] Address [address] [place] [address] Care Team Providers Care Parts Fabricator Name Role Phone Justen Gale MD Primary Care Provider [phone] Reason for Visit * Reason Onset Date Comments Transitions Of Care 08/02/2023 Encounter Details Date Type Department Care Team (Late st Contact Info) Description 08/02/2023 Telephone [facility] CARE COORDINATION [address] [place] [phone] Opal Burch, RN Transitions Of Care Social [...] medical care, and heating? Somewhat hard 05/16/2023 [facility] [place] of Occupat ional Health - Occupational Stress [...] slept in a fdc (including now)? No 05/16/2023 Sex and Gender [...] RN - 08/02/2023 12:47 PM CDT Transition Library Supervisor (TCC) Kary burch RN post discharge follow-up contact by telephone: Patient with recent IP discharge from [facility] on 07/31 and had Readmission Risk Assessment (score of 25). As such, Patient receiving 1-2 week follow-up call. This TCC contacted pt by telephone ([phone]) to complete pt post-discharge follow-up contact. 1) How are you feeling? Tired bu tok 2) How is your mobility? walker 3) New concerns or problems? no 4) Have you had to go the ER for any reason? no 5) Any questions about your discharge diagnosis and instructions? Yes, pt concerned regarding UA abx treatment. Message sent to urology office [facility] 6) Do you have a follow up [...] time. TCC encouraged pt to call this film writer with questions, concerns, barriers to care, and/or additional resources if needed. pt verbalized understanding and agreement with plan. TCC will continue to provide post-discharge monitoring for 30 days post-discharge with target end date of program and intervention(s) set for 08/29. no follow-up needs identified or indicated at this time. Call Duration: 15 min Opal uBrch RN, MSN Transition Library Supervisor Office: [phone] 08/02/2023 documented in this encounter Plan of Treatment Not on file documented as of this encounter Visit Diagnoses Not on filedocumented in this encounter Care Teams Parts Fabricator Relationship Specialty Start Date End Date Justen Gale MD PCP - General 07/05/21 documented as of this encounter
--- OUTSIDE RECORDS SUMMARY | 2024-04-26 06:52 | XMS_ITS | Encounter Summary ---
Author Organization [facility] Address [address] [place] [address] Care Team Providers Care Electric Track Switch Maintainer Name Role Phone Justen Gale MD Primary Care Provider [phone] Encounter Details Date Type Department Care Team [...] medical care, and heating? Somewhat hard 05/16/2023 [facility] [place] of Occupat ional Health - Occupational Stress [...] filedocumented in this encounter Care Teams Electric Track Switch Maintainer Relationship Specialty Start Date End Date Justen Gale MD PCP - General 07/05/21 documented as of this encounter
--- OUTSIDE RECORDS SUMMARY | 2024-04-26 06:52 | XMS_ITS | Encounter Summary ---
Author Organization [facility] Address [address] [place] [address] Care Team Providers Care Die Set Up Worker Name Role Phone Justen Gale MD Primary Care Provider [phone] Encounter Details Date Type Department Care Team (Late st Contact Info) Description 02/07/2024 Orders Only [facility] - Orthopedics [address] [facility] [facility] [place] [address] Patrick Flynn, RADIOLOGY SPECIAL PROCEDURE TECH-CHIEF CONTRACT OFFICER [address] [id number] Social History Tobacco Use Types Packs/Day Years [...] heating? Somewhat hard 05/16/2023 [facility] [place] of Occupat ional Health - Occupational Stress [...] slept in a longterm (including now)? No 05/16/2023 Sex and Gender [...] on filedocumented in this encounter Care Teams Die Set Up Worker Relationship Specialty Start Date End Date Justen Gale MD PCP - General 07/05/21 documented as of this encounter
--- OUTSIDE RECORDS SUMMARY | 2024-04-26 06:52 | XMS_ITS | Encounter Summary ---
Author Organization [facility] Address [address] [place] [place] [address] Care Team Providers Care Dog Hair Clipper Name Role Phone Justen Gale MD Primary Care Provider [phone] Reason for Visit * Reason Comments MALAISE Generalized pain and b/l arm weakness x1 week, recently admitted for same , tomorrow has a nerve conduction test Encounter Details Date Type Department Care Team (Late st Contact Info) Description 05/28/2023 10:29 PM RECREATIONAL AIDE - 05/29/2023 4:35 AM RECREATIONAL AIDE Emergency ER at [place] [id number] Gatito Verdugo MD [address] [place] [address] Dizziness; Lumbar radiculopathy; Weakness; Acute left-sided low [...] medical care, and heating? Somewhat hard 05/16/2023 [facility] of Occupat ional Health - Occupational Stress [...] Comments Blood Pressure 139/82 05/29/2023 3:31 AM RECREATIONAL AIDE Pulse 85 05/28/2023 10:41 PM RECREATIONAL AIDE Temperature 37 ??C (98.6 ??F) 05/28/2023 7:41 PM RECREATIONAL AIDE Respiratory Rate 20 05/28/2023 10:41 PM RECREATIONAL AIDE Oxygen Saturation 95% 05/29/2023 3:50 AM RECREATIONAL AIDE Inhaled Oxygen Concentration - - Weight 119.7 kg (264 lb) 05/28/2023 10:40 PM RECREATIONAL AIDE Height 154.9 cm (5' 1 ) 05/28/2023 10:40 PM RECREATIONAL AIDE Body Mass Index 49.88 05/28/2023 10:40 PM RECREATIONAL AIDE documented in this encounter Functional Status Functional [...] Gatito Verdugo MD - 05/29/2023 3:23 AM RECREATIONAL AIDE Please follow-up with your spine surgeon EATIONAL AIDE documented in this encounter Medications at Time [...] Reasons: for restless legs 06/05/2023 HYDROcodone-acetaminoph en ([place]) 10-325 MG tabletIndications:Chron ic left-sided low back [...] exited the department safely and without incident. EATIONAL AIDE * Aislinn Saldaña RN - 05/29/2023 3:09 AM CST 67 year old female presents with complaint of back pain. She states that the pain has worsened overthe last 12 weeks and feels like its coming from her stimulator. PMH of breast cancer, LUL, PE, DM. EATIONAL AIDE * Leo Bourne RN - 05/29/2023 3:02 AM CST Bed: 28 Expected date: Expected time: Means of arrival: Comments: 43 EATIONAL AIDE * Gatito Verdugo MD - 05/28/2023 11:34 [...] or bladder control, numbness or tingling. Taking [place] without relief. Reports recently being admitted for [...] ??? Type 2 diabetes mellitus without complications ([facility]) Past Surgical History: Procedure Laterality Date ??? [...] 3 times daily before meals ??? HYDROcodone-acetaminophen ([place]) 10-325 MG tablet Take 1 (one) tablet [...] Palmer note: Discussed with neuro surgery, Dr. Samaniego. Recommended T-spine and L-spine radiographs to reassure [...] Normal sinus rhythm ventricular rate (bpm) 79 Babbitt: normal ST segments: No acute ST elevation [...] compression deformity. No malalignment. To TALK to Information Technology Manager Radiologist: Patient Name:MOHSEN MARQUES MR NO:[id number] Accession No: Samad Bowen M.D. Electronically Signed [...] REFLEX 1HOUR ??? EKG 12-LEAD ??? HYDROcodone-acetaminophen ([place]) 5-325 MG tablet 1 tablet ??? HYDROcodone-acetaminophen ([place]) 5-325 MG tablet 1 tablet ??? morphine [...] created with voice recognition software. Occasional wrong-wordor '[id number]' substitutions may have occurred due to the inherent limitations of voice recognition software Gatito Verdugo MD 05/28/2023 11:34 PM EATIONAL AIDE * Estela Jaimes PA-C - 05/28/2023 4:00 [...] No Stress: No Stress Concern Present (05/16/2023) [facility] of Occupational Health - Occupational Stress Questionnaire [...] left-sided low back pain with bilateral sciatica EATIONAL AIDE Associated attestation - Gena Barcenas DO - 05/28/2023 8:37 PM RECREATIONAL AIDE 05/28/2023 20:37 I did not see the [...] SPINE W CONTRAST STAT 05/29/2023 12:29 AM RECREATIONAL AIDE Lumbar radiculopathy Weakness TROPONIN-I HIGH SENSITIVE REFLEX 1HOUR Timed 05/28/2023 10:40 PM RECREATIONAL AIDE XR LUMBAR SPINE 2 OR 3VW STAT 05/28/2023 6:44 PM RECREATIONAL AIDE Acute left-sided low back pain with bilateral sciatica XR THORACIC SPINE 2VW STAT 05/28/2023 6:44 PM RECREATIONAL AIDE Acute left-sided low back pain with bilateral sciatica XR CHEST 1VW PORTABLE STAT 05/28/2023 6:44 PM RECREATIONAL AIDE Dizziness EKG 12-LEAD STAT 05/28/2023 4:24 PM RECREATIONAL AIDE Dizziness TROPONIN-I HIGH SENSITIVE BASELINE + 1HR STAT 05/28/2023 4:21 PM RECREATIONAL AIDE CBC W AUTO DIFFERENTIAL STAT 05/28/2023 4:21 PM RECREATIONAL AIDE COMPREHENSIVE METABOLIC PANEL STAT 05/28/2023 4:21 PM RECREATIONAL AIDE documented in this encounter Results * CT LUMBAR SPINE W CONTRAST (05/29/2023 12:29 AM RECREATIONAL AIDE) Anatomical Region Laterality Modality Spine Computed Tomogra phy 05/29/2023 9:24 AM RECREATIONAL AIDE Impressions 05/29/2023 9:34 AM RECREATIONAL AIDE IMPRESSION: 1. ??Lumbar degenerative change with neural foraminal stenosis on the right at L4-L5. 2. Chronic findings of sacroiliitis. > Interpreting Provider: Fabiola Alegre MD on 05/29/2023 9:34 AM Narrative 05/29/2023 9:34 AM RECREATIONAL AIDE PROCEDURE: ??CT LUMBAR SPINE W CONTRAST DATE/TIME [...] HIGH SENSITIVE REFLEX 1HOUR (05/28/2023 10:40 PM RECREATIONAL AIDE) Pathologist [facility] Troponin I High Sensitive <3 <=14 ng/L 05/28/2023 11:06 PM RECREATIONAL AIDE [facility] Delta Troponin I HS 05/28/2023 11:06 PM RECREATIONAL AIDE [facility] Comment:Delta value intentio yissel not calculated. Baseline to 1 hour specimen collection interval exceeded. Blood BLOOD SPECIMEN / Unknown Venipuncture / Unknown 05/28/2023 10:40 PM RECREATIONAL AIDE 05/28/2023 10:45 PM RECREATIONAL AIDE Estela Jaimes PA-C LAB - MOLD LOFT WORKER RY ORDERABLES [facility] [address] [place] [address] * XR LUMBAR SPINE TRAUMA 2 OR 3 VW (05/28/2023 6:44 PM RECREATIONAL AIDE) Anatomical Region Laterality Modality Spine Radiographic Lizeth ging 05/29/2023 10:2 6 AM RECREATIONAL AIDE Impressions 05/29/2023 10:27 AM RECREATIONAL AIDE IMPRESSION: Lumbar degenerative change with no radiographic evidence of acute osseous abnormality of the lumbar spine. > Interpreting Provider: Fabiola Alegre MD on 05/29/2023 10:27 AM Narrative 05/29/2023 10:27 AM RECREATIONAL AIDE PROCEDURE: ??XR LUMBAR SPINE 2 OR 3VW [...] SPINE TRAUMA 2 VW (05/28/2023 6:44 PM RECREATIONAL AIDE) Anatomical Region Laterality Modality Spine Radiographic Lizeth ging 05/29/2023 10:2 5 AM RECREATIONAL AIDE Impressions 05/29/2023 10:26 AM RECREATIONAL AIDE IMPRESSION: Degenerative changes with no radiographic evidence of acute osseous abnormality of the thoracic spine. > Interpreting Provider: Fabiola Alegre MD on 05/29/2023 10:26 AM Narrative 05/29/2023 10:26 AM RECREATIONAL AIDE PROCEDURE: ??XR THORACIC SPINE 2VW DATE/TIME OF [...] XR CHEST 1VW PORTABLE (05/28/2023 6:44 PM RECREATIONAL AIDE) Anatomical Region Laterality Modality Chest Radiographic Lizeth ging 05/29/2023 7:03 AM RECREATIONAL AIDE Impressions 05/29/2023 7:04 AM RECREATIONAL AIDE IMPRESSION: No evidence of acute pulmonary disease. > Interpreting Provider: Justen Lynch MD on 05/29/2023 7:04 AM Narrative 05/29/2023 7:04 AM RECREATIONAL AIDE PROCEDURE: ??XR CHEST 1VW PORTABLE DATE/TIME OF [...] ORDERABLES * EKG 12-LEAD (05/28/2023 4:24 PM RECREATIONAL AIDE) Ventricular Rate 79 BPM [facility]USE Atrial Rate 79 BPM [facility] P-R Interval 148 ms [facility] QRS Duration ms 84 ms [facility] Q-T Interval ms 380 ms [facility] QTC Calculation (Bezet) 435 ms [facility] Calculated P Babbitt 15 degrees [facility] Calculated R Babbitt 7 degrees [facility] Calculated T Babbitt 48 degrees [facility] Interpretation EKG NORMAL SINUS RHYTHM NORMAL ECG Confirmed by MD Jojo, Genaro ([id number]) on 05/29/2023 7:46:55 AM [facility] MUSE 05/28/2023 4:24 PM RECREATIONAL AIDE 05/29/2023 7:46 AM RECREATIONAL AIDE Estela Jaimes PA-C ECG ORDERABLE S [facility] * TROPONIN-I HIGH SENSITIVE BASELINE + 1HR (05/28/2023 4:21 PM RECREATIONAL AIDE) [facility] Troponin I High Sensitive <3 <=14 ng/L 05/28/2023 4:46 PM [facility] Blood BLOOD SPECIMEN / Unknown Venipuncture / Unknown 05/28/2023 4:21 PM RECREATIONAL AIDE 05/28/2023 4:25 PM RECREATIONAL AIDE Estela Jaimes PA-C LAB - MOLD LOFT WORKER RY ORDERABLES Performing Organization Address City/State/[facility] Co de Phone Number [facility] [address] [place] [address] * (ABNORMAL) COMPREHENSIVE METABOLIC PANEL (05/28/2023 4:21 PM RECREATIONAL AIDE) [facility] Glucose 189(H) 70 - 105 mg/dL 05/28/2023 4:43 PM [facility] Sodium 139 136 - 145 mmol/L 05/28/2023 4:43 PM [facility] Potassium 3.9 3.5 - 5.1 mmol/L 05/28/2023 4:43 PM [facility] Chloride 104 98 - 107 mmol/L 05/28/2023 4:43 PM [facility] CO2 25 22 - 29 mmol/L 05/28/2023 4:43 PM [facility] Calcium 9.8 8.4 - 10.4 mg/dL 05/28/2023 4:43 PM [facility] Anion Gap 10 6 - 16 mmol/L 05/28/2023 4:43 PM [facility] BUN 12 7 - 26 mg/dL 05/28/2023 4:43 PM [facility] Creatinine 0.77 0.57 - 1.11 mg/dL 05/28/2023 4:43 PM [facility] Alkaline Phosphatase 82 40 - 150 U/L 05/28/2023 4:43 PM [facility] ALT 18 0 - 55 U/L 05/28/2023 4:43 PM [facility] AST 17 5 - 34 U/L 05/28/2023 4:43 PM [facility] Protein Total 8.8(H) 6.4 - 8.3 gm/dL 05/28/2023 4:43 PM [facility] Albumin 3.5 3.4 - 5.0 gm/dL 05/28/2023 4:43 PM [facility] Bilirubin Total 0.6 0.2 - 1.2 mg/dL 05/28/2023 4:43 PM [facility] eGFR by CKD-EPI 85(L) >=90 mL/min/1.7 3 m2 05/28/2023 4:43 PM [facility] Blood BLOOD SPECIMEN / Unknown Venipuncture / Unknown 05/28/2023 4:21 PM RECREATIONAL AIDE 05/28/2023 4:25 PM RECREATIONAL AIDE Esetla Jaimes PA-C LAB - MOLD LOFT WORKER RY ORDERABLES Performing Organization Address City/State/[facility] Co de Phone Number [facility] [address] [place], [place] [phone] * (ABNORMAL) CBC W AUTO DIFFERENTIAL (05/28/2023 4:21 PM RECREATIONAL AIDE) WBC 10.0 4.0 - 10.7 x10E9/L 05/28/2023 4:28 PM [facility] RBC Count 4.64 3.90 - 5.20 x10E12/L 05/28/2023 4:28 PM [facility] Hemoglobin 13.3 11.9 - 15.8 g/dL 05/28/2023 4:28 PM [facility] Hematocrit 42.2 34.8 - 46.1 % 05/28/2023 4:28 PM [facility] MCV 90.9 80.0 - 98.0 fL 05/28/2023 4:28 PM [facility] MCH 28.7 26.7 - 33.6 pg 05/28/2023 4:28 PM [facility] MCHC 31.5(L) 31.7 - 36.3 g/dL 05/28/2023 4:28 PM [facility] RDW-CV 13.2 11.3 - 14.8 % 05/28/2023 4:28 PM [facility] Platelet Count 281 150 - 420 x10E9/L 05/28/2023 4:28 PM [facility] MPV 9.6 7.8 - 11.4 fL 05/28/2023 4:28 PM [facility] Neutrophil % 61.5 41.0 - 74.0 % 05/28/2023 4:28 PM RECREATIONAL AIDE [facility] Lymphocyte % 28.0 17.0 - 47.0 % 05/28/2023 4:28 PM [facility] Monocyte % 7.4 3.0 - 11.0 % 05/28/2023 4:28 PM [facility] Eosinophil % 2.3 0.0 - 7.0 % 05/28/2023 4:28 PM [facility] Basophil % 0.4 0.0 - 1.6 % 05/28/2023 4:28 PM [facility] Immature Granulocytes % 0.4 0.0 - 1.0 % 05/28/2023 4:28 PM [facility] Neutrophil Absolute 6.16 1.60 - 7.50 x10E9/L 05/28/2023 4:28 PM [facility] Lymphocyte Absolute 2.81 1.00 - 4.40 x10E9/L 05/28/2023 4:28 PM [facility] Monocyte Absolute 0.74 0.15 - 1.00 x10E9/L 05/28/2023 4:28 PM [facility] Eosinophil Absolute 0.23 0.00 - 0.60 x10E9/L 05/28/2023 4:28 PM [facility] Basophil Absolute 0.04 0.00 - 0.13 x10E9/L 05/28/2023 4:28 PM [facility] Blood BLOOD SPECIMEN / Unknown Venipuncture / Unknown 05/28/2023 4:21 PM RECREATIONAL AIDE 05/28/2023 4:25 PM RECREATIONAL AIDE Estela Jaimes PA-C LAB - HEMATOL OGY ORDERABLES Performing Organization Address City/State/[facility] Co de Phone Number [facility] [address] [place] [address] documented in this encounter Visit Diagnoses Diagnosis Dizziness Dizziness and giddiness Lumbar radiculopathy Thoracic or lumbosacral neuritis or radiculitis, unspecified Weakness Other malaise and fatigue Acute left-sided low back pain with bilateral sciatica documented in this encounter Administered Medications Inactive Administered Medications - up to 3 most recent administrations Medication Order [facility] Action Action Date Dose Rate Site 0.9% NaCl injection 0-10 mL 0-10 mL, Intracatheter, ONCE PRN, Other, Contrast flush, 1 dose, Starting on Mon05/29/23 at 0009, Until Mon05/29/23 at 0009, For administration with contrast. $ Given 05/29/2023 12:09 AM RECREATIONAL AIDE 10 mL 0.9% NaCl IV flush bag 0-250 mL, Intracatheter, ONCE PRN, Contrast flush, 1 dose, Starting on Mon05/29/23 at 0009, Until Mon05/29/23 at 0009, For administration with contrast $ Given 05/29/2023 12:09 AM RECREATIONAL AIDE 100 mL amitriptyline (Elavil) tablet 25 mg 25 mg, Oral, Once, 1 dose, On Mon05/29/23 at 0100 $ Given 05/29/2023 2:11 AM RECREATIONAL AIDE 25 mg diazePAM (Valium) injection 2.5 mg 2.5 mg, Intravenous, NOW, 1 dose, On Mon05/28/23 at 2345 $ Given 05/28/2023 11:52 PM RECREATIONAL AIDE 2.5 mg HYDROcodone-acetaminophen ([place]) 5-325 MG tablet 1 tablet 1 tablet, [...] the MAR. $ Given 05/28/2023 5:54 PM RECREATIONAL AIDE 1 tablet HYDROmorphone (Dilaudid) tablet 2 mg [...] the MAR. $ Given 05/29/2023 4:22 AM RECREATIONAL AIDE 2 mg iopamidol (Isovue 370) 76 % contrast Intravenous, CONTRAST ONCE, Starting on Mon05/29/23 at 0009, Until Mon05/29/23 at 0535 $ Given - Contrast 05/29/2023 12:10 AM RECREATIONAL AIDE 100 mL ketamine (Ketalar) injection 15 mg 15 mg, Intravenous, ONCE, 1 dose, On Mon05/29/23 at 0115, . $ Given 05/29/2023 2:12 AM RECREATIONAL AIDE 15 mg morphine injection 4 mg 4 [...] the MAR. $ Given 05/28/2023 11:52 PM RECREATIONAL AIDE 4 mg rOPINIRole (Requip) tablet 5 mg 5 mg, Oral, Once, 1 dose, On Mon05/29/23 at 0330 $ Given 05/29/2023 4:18 AM RECREATIONAL AIDE 5 mg documented in this encounter Active and Recently Administered Medications Times are shown in RECREATIONAL AIDE. Scheduled Medication Order 05/27/2023 05/28/2023 05/29/2023 amitriptyline (Elavil) tablet 25 mg (COMPLETED) 25 mg, Oral, Once, 1 dose, On Mon05/29/23 at 0100 0211 ($ Given - Provider: Aislinn Saldaña RN) diazePAM (Valium) injection 2.5 mg (COMPLETED) 2.5 mg, Intravenous, NOW, 1 dose, On 05/28/23 at 2345 2352 ($ Given - Provider: Aislinn Saldaña RN) HYDROcodone-acetaminophen ([place]) 5-325 MG tablet 1 tablet (COMPLETED) 1 [...] RT(R)CT) documented in this encounter Care Teams Dog Hair Clipper Relationship Specialty Start Date End Date Justen Gale MD PCP - General 07/05/21 documented as of this encounter
--- OUTSIDE RECORDS SUMMARY | 2024-04-26 06:52 | XMS_ITS | Encounter Summary ---
Author Organization [facility] Address [address] [place] [address] Care Team Providers Care Lokie Engineer Name Role Phone Justen Gale MD Primary Care Provider [phone] Reason for Visit * Neurology (Emergency) - Closed Specialty Diagnoses / Procedures Referred By Elyssa benavides Referred To Contact Electrophysiology Diagnoses Left leg weakness Procedures EMG WITH NERVE CONDUCTION STUDY Melly Banks APRN-CNP [id number] [address] Referral ID Status Reason Start Date Expiration Date Visits Re quested Visits Authorized [id number] Closed 05/22/2023 05/21/2024 1 1 Encounter Details Date Type Department Care Team (Latest Contact Info) Description 05/31/2023 1:41 PM SCREEN PRINTER HELPER - 05/31/2023 11:59 PM [facility] Hospital Encounter [facility] Neurosciences [facility], [address] [place] [address] Melly Banks APRN-PHARMACY CASHIER [address] [address] Discharge Disposition: Home or Self [...] medical care, and heating? Somewhat hard 05/16/2023 [facility] [place] of Occupat ional Health - Occupational Stress [...] in a senior care (including now)? No 05/16/2023 Sex and Gender [...] 4 times daily 300 Each 11/16/2021 Lancets (CloudamizeTOUCH DELICA PLUS 33G EXTRA FINE LANCET) USE [...] Take 1 tablet by mouth once daily CloudamizeTOUCH ULTRA test strip 4 times daily 02/01/2021 [...] Reasons: for restless legs 06/05/2023 HYDROcodone-acetaminoph en ([place]) 10-325 MG tabletIndications:Chron ic left-sided low back [...] from the original note were not included. [facility] [address] [place] [address] Patient: Karly Marques V #: Physician: Stanford Saldana MD Sex: Female ID#: [id number] Ref Phys: ITA Patel : [id number] Date: 05/31/2023 Silk Spreader: Christin Panchal Patient Complaints: The patient is [...] 0 Nml Nml 0 Nml ND Waveforms: EN PRINTER HELPER documented in this encounter Plan of Treatment Not on file documented as of this encounter Procedures Procedure Name Priority Date/Time Associated Diagnosis Comments EMG WITH NERVE CONDUCTION STUDY STAT 05/31/2023 11:59 PM SCREEN PRINTER HELPER Left leg weakness documented in this encounter Results * EMG WITH NERVE CONDUCTION STUDY (05/31/2023 11:59 PM SCREEN PRINTER HELPER) Narrative Stanford Saldana MD - 05/31/2023 11:59 PM SCREEN PRINTER HELPER Stanford Saldana MD ? 06/05/2023 ??5:21 PM [facility]iences [address] [place] [address], [address] [phone] Patient: Karly Marques V #: ??Physician: Stanford Saldana MD Sex: Female ID#: [id number] Ref Phys: Melly Banks APRN-NETTA : [id number] Date: 05/31/2023 Silk Spreader: Christin Panchal Patient Complaints: The patient is [...] 0 Nml ND Waveforms: ? Melly Banks APRN-PHARMACY CASHIER NEUROLOGY ORDERA BLES documented in this encounter Visit Diagnoses Diagnosis Left leg weakness Other musculoskeletal symptoms referable to limbs documented in this encounter Care Teams Lokie Engineer Relationship Specialty Start Date End Date Justen Gale MD PCP - General 07/05/21 documented as of this encounter
--- OUTSIDE RECORDS SUMMARY | 2024-04-26 06:52 | XMS_ITS ---
Author Organization [facility] Address [address] [facility] [place] [address] Care Team Providers Care Diaper Machine Tender Name Role Phone Justen Gale MD Primary Care Provider [phone] Active Problems Problem Noted Date Diagnosed Date [...] treatments are documented for this patient in [facility]. Treatments may have been administered in another system. Lifetime Dose Tracking * Chemical Lifetime Dose Automatic Entry Manual Entr y Dose Length Product 1,838 mGy-cm 1,838 mGy-cm 0 mGy-cm Resolved Problems Problem Noted Date Diagnosed Date Resolved Date Rash 03/21/2023 04/18/2023
--- OUTSIDE RECORDS SUMMARY | 2024-04-26 06:52 | XMS_ITS | Encounter Summary ---
Author Organization [facility] Address [address] [place] [address] Care Team Providers Care Remedial Teacher Name Role Phone Justen Gale MD Primary Care Provider [phone] Encounter Details Date Type Department Care Team (Late st Contact Info) Description 08/01/2023 [facility] [address] [address] [place] [address] Watson Bearden MD [facility] [address] [place] [address] Low back pain, unspecified Social [...] medical care, and heating? Somewhat hard 05/16/2023 [facility] [place] of Occupat ional Health - Occupational Stress [...] unspecified documented in this encounter Care Teams Remedial Teacher Relationship Specialty Start Date End Date Justen Gale MD PCP - General 07/05/21 documented as of this encounter
--- OUTSIDE RECORDS SUMMARY | 2024-04-26 06:52 | XMS_ITS | Referral Summary ---
Author Organization [facility] Address [address] [place] [address] Care Team Providers Care Preservationist Name Role Phone Justen Gale MD Primary Care Provider [phone] Source Comments [facility],non[facility] Affiliates and Associated Physician Practices is amultiple site organization consisting of ambulatory clinics and hospital sitesin [place], [place] and [place]. This disclosure is being madepursuant to the Care Everywhere program and may not contain all information available regarding this patient. Last updated 18.[facility] Encounters Date Type Department Care Team Description 03/08/2024 Orders Only [facility] - [facility]rology [address] [place] [id number] Caroline Sultana RN 02/07/2024 Orders Only [facility] - Orthopedics [address] [place] [phone] Patrick Flynn APRN-NETTA 02/05/2024 Travel 01/26/2024 Telephone [facility] [address] [place] [phone] Maldonado Christianson MD Appointment (Referral ) [...] heating? Somewhat hard 05/16/2023 [facility] [place] [facility] - Occupational Stress [...] slept in a long-term (including now)? No 05/16/2023 Sex and Gender [...] on file Medical Devices Implanted Type Area Criminal Lawyer Device Identifier Shelf Expiration Date Model / Serial / Lot Lead Nrstm 60cm Penta 3mm Pdl 16 Chnl Implanted:Qt y: 1 on 09/16/2021 by Maxi Gregg MD at [facility] Right: Spine Thoracic [employer] [id number] / / Description:CAMILO Slnt Dura Duraseal Pg Trilysine Amine 5 Implanted:Qt y: 1 on 09/16/2021 by Maxi Gregg MD at [facility] Right: Spine Thoracic [employer] David [id number] / / Description:CAMILO Proclaim Plus 5 Implanted:Qt y: 1 on 02/16/2023 by Maxi Gregg MD at [facility] Left: Back [employer] Spine [id number] 11/07/2024 [id number] / [id number] / Explanted Type Area Criminal Lawyer Device Identifier Shelf Expiration Date Model / Serial / Lot Gntr Nrstm 1.95inx2.19in Proclaim Elt Implanted:Qty: 1 on 09/16/2021 by Maxi Gregg MD at [facility] Explanted:Qty: 1 on 10/30/2021 by Maxi Gregg MD at [facility] Right: Spine Thoracic [employer] [...] 7 - 26 mg/dL 07/30/2023 2:31 AM [facility] Creatinine 0.67 0.56 - 0.96 mg/dL 07/30/2023 2:31 AM [facility] Sodium 136 136 - 145 mmol/L 07/30/2023 2:31 AM [facility] Potassium 4.4 3.5 - 4.5 mmol/L 07/30/2023 2:31 AM [facility] Chloride 101 98 - 107 mmol/L 07/30/2023 2:31 AM [facility] CO2 27 22 - 29 mmol/L 07/30/2023 2:31 AM [facility] Glucose 238(H) 70 - 115 mg/dL 07/30/2023 2:31 AM [facility] Albumin 2.9(L) 3.4 - 5.0 g/dL 07/30/2023 2:31 AM [facility] Calcium 9.4 8.4 - 10.2 mg/dL 07/30/2023 2:31 AM [facility] Phosphorus 3.0 2.9 - 5.1 mg/dL 07/30/2023 2:31 AM [facility] Anion Gap 8 6 - 16 07/30/2023 2:31 AM [facility] BUN/Creatinine Ratio 30(H) 7 - 23 07/30/2023 2:31 AM [facility] Osmolality Calculated 292 275 - 295 mOsm/kg 07/30/2023 2:31 AM [facility] eGFR by CKD-EPI >90 >=90 mL/min/1.7 3 m2 07/30/2023 2:31 AM [facility] Blood BLOOD SPECIMEN / Unknown Lab Venipuncture / Unknown 07/30/2023 1:28 AM CDT 07/30/2023 2:04 AM CDT Brian Bravo MD LAB - CHEMISTRY ANGEL SPEARS Performing Organization Address [facility]/ZIP Co de Phone Number [address] [address], [facility] [phone] * HEPATITIS C AB SCREEN RFLX NAAT QUANT (02/21/2023 6:30 PM CDT) [facility] Hepatitis C Antibody Non-react hugh Non-reac tive 02/21/2023 7:32 PM CDT [facility] Comment:Hepatitis C Antibody screen indicates no [...] - CHEMISTRY ANGEL SPEARS Performing Organization Address [facility]/ZIP Co de Phone Number [address] [phone], [facility] [phone] * (ABNORMAL) HEMOGLOBIN A1C (12/25/2022 3:56 AM CDT) Pathologist [facility] Hemoglobin A1c 8.6(H) <=5.6 % 12/25/2022 2:47 PM CDT [facility] Estimated Average Glucose 200 mg/dL 12/25/2022 2:47 PM CDT [facility] Comment: HbA1c Interpretation: Normal : < 5.7% Pre-diabetes: 5.7-6.4% Diabetes: Equal to or greater than 6.5% Test results diagnostic of diabetes should be repeated for confirmation. Treatment target values recommended by ADA and other clinical organizations should be used to evaluate metabolic control in patients. Reference: [place] [employer], Standards of Care in Diabetes [...] - CHEMISTR Y ORDERABLES [facility] [address] [place] [address], [facility] [phone] from Last 3 Months or Most Recently [...] 3:37 AM 03/23/2023 7:14 PM Care Teams Preservationist Relationship Specialty Start Date End Date Justen Gale MD PCP - General 07/05/21
--- OUTSIDE RECORDS SUMMARY | 2024-04-26 06:52 | XMS_ITS | Encounter Summary ---
Author Organization [facility] Address [address] [place] [address] Care Team Providers Care Field Hockey And Lacrosse Coach Name Role Phone Justen Gale MD Primary Care Provider [phone] Reason for Referral * Evaluate & Treat (Routine) - Closed Specialty Diagnoses / Procedures Referred By Elyssa benavides Referred To Contact Allergy and Immunology Diagnoses Urinary incontinence, unspecified type Kip Rocha MD [address] [place] [address] [facility] [address] [facility], [place] [address] Referral ID Status Reason Start Date Expiration Date V isits Requested Visits Authorized [id number] Closed Discharge Follow-up 07/28/2023 07/27/2024 1 1 [...] Expiration Date Visits Re quested Visits Authorized [id number] 1 1 Encounter Details Date Type Department Care Team (Late st Contact Info) Description 07/26/2023 8:52 PM CDT - 08/01/2023 4:56 PM CDT Emergency [place] [address] [facility] [place] [address] Choco Martin MD [address] [facility] [place] [address] Cal Alicea MD [address] [facility] DIV OF EMERGENCY MEDICINE [place], [place] Marvin Davey MD [facility] [address] [address] Kip Rocha MD [address] [place], [place] [phone] Brian Bravo MD [address] [facility] 2L [place] [address] Watson Bearden MD [facility] [address] [place] [address] Internal Medicine Discharge Disposition: Home [...] and heating? Somewhat hard 05/16/2023 [facility] of Occupat ional Health - Occupational Stress [...] Bearden MD - 08/01/2023 1:55 PM CDT [facility] INTERNAL MEDICINE DISCHARGE SUMMARY PATIENT: Karly Marques 68 year old female : 1955 ADMISSION INFORMATION ADMISSION DISCHARGE Date: 07/26/2023 Date: 08/01/2023 Admitting Physician Marvin Davey MD Discharge Physician: Watson Bearden MD Present on Admission: ??? Breast [...] HYDROcodone-acetaminophen 10-325 MG tablet Commonly known as: Hartsdale ASK your doctor about these medications cyclobenzaprine 5 MG tablet Commonly known as: Flexeril Take 1 (one) tablet by mouth 3 times daily as needed (Muscle spasms) Where to Get Your Medications These medications were sent to [facility] [address] [facility] [address] [address] [facility] [address] ?? amoxicillin-clavulanate 875-125 MG tablet ?? oxyCODONE [...] sure to ask the pharmacy when you seed cone picker your prescription. You may also call [...] the nearest emergency room or call EMS (331). Regards, Internal Medicine Department [address] [phone] Signed: Watson Bearden MD [facility] 08/01/2023 1:57 PM documented in this encounter [...] sure to ask the pharmacy when you seed cone picker your prescription. You may also call [...] the nearest emergency room or call EMS (421). Regards, Internal Medicine Department [address] [phone] documented in this encounter Medications at Time of Discharge Medication Sig Dispensed Refills Start Date End Date acetaminophen (Tylenol) 500 MG tablet Take 2 (two) tablets by mouth 3 times daily Maximum allowable Acetaminophen amount = 4 Grams (4000 mg) / 24 hours. 08/01/2023 Continuous Blood Gluc Sensor (FreeStyle Eileen 2 Sensor Systm) [facility] APPLY 1 SENSOR AND WEAR FOR 14 [...] questions, please contact the outpatient pharmacy at [phone]. Jeff Carolina CPhT [facility] at [address], First Floor [place], [place] [address] Hours of Operation Monday - Monday: 8:00am to 6:00pm Monday: 9:00am to 1:00pm Epic: [facility] *Ensure the patient and clinic's nearby ZIP codes box is unchecked* * Angelita Short, OT - 08/01/2023 1:08 PM CDT [facility] Occupational Therapy Progress Note Patient: Karly Marques Med Record Number: [id number] Date of : 1955 Age: [age] year [...] standing at sink) Lower Body Dressing: Complete Carson (doff slip-on shoes) Toileting: Stand By Assist [...] will perform bathing tasks with stand-by assist Ranger Aide Goal(s): Patient to be independent/baseline with functional [...] Information Primary Emergency Contact: Jimmie Marques Address: [address] [place] [address] [place] [address] Relation: Spouse Secondary Emergency Contact: Yunior Velez [...] Feel free to text page me through Anadys, login slThe Luxury Clubm Current Meds ??? 0.9% NaCl 3 mL [...] Feel free to text page me through Anadys, login sluim Current Meds ??? 0.9% NaCl [...] Feel free to text page me through Anadys, login iAgree Current Meds ??? 0.9% NaCl 3 mL [...] Salamanca OT - 07/28/2023 2:01 PM CDT [facility] Occupational Therapy Progress Note Patient: Karly Marques Med Record Number: [id number] Date of : 1955 Age: [age] year [...] Fair Activities of Daily Living: Feeding: Complete Carson Toileting: Stand By Assist (pericare and clothing [...] will transfer to standard toilet independently ?? Ranger Aide Goal(s): Patient to be independent with functional [...] Rivera PT - 07/28/2023 10:01 AM CDT [facility] Department of Physical Medicine & Rehabilitation Progress Note Patient: Karly Marques Med Record Number: [id number] Date of : 1955 Age: [age] year old 07/28/23 1001 Missed Visit Missed Visit Refused (due to talking with family; will continue to follow) * Didi Galvan MD - 07/28/2023 9:50 AM CDT 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 Met with patient Family Support (name and phone): Extended Emergency Contact Information Primary Emergency Contact: Jimmie Marques Address: [address] [place] [address] [place] [address] Mckenna Relation: Spouse Secondary Emergency Contact: Yunior Velez Tellybean Relation: Daughter Patient or architectural representative requests care coordination reach out to family or caregiver listed above regarding discharge planning and at time of discharge? Yes Patient/Family provided with list of resources? No Preferred Provider / High Quality Network List given?: No Reason for provider choice: Pt. choice - Physician driven Equipment at Home: Cane-Straight;CPAP;Walker-2 Wheeled;Wheelchair-Standard;Chair-Shower;Commode-Bedside;Grab Bars Clinical Support Manager Referral: No Will continue to follow. For any questions or needs please contact: Application Support Developer Name/Phone number: Magda De La Rosa RN * Juve He, PT - 07/27/2023 10:45 AM CDT [facility] Physical Therapy Initial Evaluation Note Patient: Karly Marques [facility] Record Number: [id number] Date of : 1955 Age: [age] year [...] depression Chronic anticoagulation CVA (cerebral vascular accident) ([facility]) Essential hypertension Neuropathy LUL (obstructive sleep apnea) Type 2 diabetes mellitus without complication ([facility]) S/P insertion of spinal cord stimulator Preoperative examination Acute post-operative pain Tachycardia Multiple subsegmental pulmonary emboli without acute cor pulmonale (CMS/HCC) Wound infection complicating hardware ([facility]) Acute intractable headache, unspecified headache type Intractable chronic post-traumatic headache Right hand weakness Cellulitis, wound, post-operative Weakness Chronic left-sided low back pain, unspecified whether sciatica present S/P placement of nerve stimulator Acute cystitis without hematuria Breast cancer ([facility]) Restless legs syndrome (RLS) Morbid obesity ([facility]) Chronic midline low back pain without sciatica Chronic left-sided low back pain with left-sided sciatica Lumbar back pain Past Medical History: Diagnosis Date ??? Breast cancer ([facility]) ??? Chest pain ??? DVT (deep venous thrombosis) ([facility]) ??? GERD (gastroesophageal reflux disease) ??? LUL (obstructive sleep apnea) w cpap ??? Other pulmonary embolism without acute cor pulmonale ([facility]) ??? rls ??? Type 2 diabetes mellitus without complications ([facility]) SUBJECTIVE: Subjective: Agreeable to therapy evaluation, [...] often is assistance provided?: daughter is her restuarant crew worker and assists with dressing, bathing,and IADLs, [...] transfer training, gait training and balance activities [facility] 6 Clicks Mobility Raw Score:: 17 [...] ascend/descent 2 steps with stand by assist Ranger Aide Goal(s): Patient to be baseline with functional [...] Salamanca, OT - 07/27/2023 10:23 AM CDT [facility] Occupational Therapy Initial Evaluation Note Patient: Karly Marques Med Record Number: [id number] Date of : 1955 Age: [age] year [...] depression Chronic anticoagulation CVA (cerebral vascular accident) ([facility]) Essential hypertension Neuropathy LUL (obstructive sleep apnea) Type 2 diabetes mellitus without complication ([facility]) S/P insertion of spinal cord stimulator Preoperative examination Acute post-operative pain Tachycardia Multiple subsegmental pulmonary emboli without acute cor pulmonale (CMS/HCC) Wound infection complicating hardware ([facility]) Acute intractable headache, unspecified headache type Intractable chronic post-traumatic headache Right hand weakness Cellulitis, wound, post-operative Weakness Chronic left-sided low back pain, unspecified whether sciatica present S/P placement of nerve stimulator Acute cystitis without hematuria Breast cancer ([facility]) Restless legs syndrome (RLS) Morbid obesity ([facility]) Chronic midline low back pain without sciatica Chronic left-sided low back pain with left-sided sciatica Lumbar back pain Past Medical History: Diagnosis Date ??? Breast cancer ([facility]) ??? Chest pain ??? DVT (deep venous thrombosis) ([facility]) ??? GERD (gastroesophageal reflux disease) ??? LUL (obstructive sleep apnea) w cpap ??? Other pulmonary embolism without acute cor pulmonale ([facility]) ??? rls ??? Type 2 diabetes mellitus without complications ([facility]) SUBJECTIVE: Subjective: I'm doing much better [...] often is assistance provided?: daughter is her restuarant crew worker and assists with dressing, bathing,and IADLs [...] AROM WFL Strength: RUE: WNL except fair returned goods repairer strength LUE: WNL UE Tone RUE: no [...] Body Dressing: Moderate Assistance (with use of furniture rental consultant for donning underwear EOB, educated on use of furniture rental consultant) ACTIVITY TOLERANCE: Patient's activity tolerance: fair- limited [...] Patient will transfer to standard toilet independently Longterm Goal(s): Patient to be independent with functional [...] He PT - 07/27/2023 9:45 AM CDT [facility] Department of Physical Medicine & Rehabilitation Patient: Karly Marques Med Record Number: [id number] Date of : 1955 Age: [age] year [...] Matias DO - 07/26/2023 11:43 PM CDT [facility] INTERNAL MEDICINE HISTORY & PHYSICAL NOTE Date [...] controlled inpatient and she was discharged on [place], cyclobenzaprine, heat packs, lidocaine patches, and NSGY [...] No Stress: No Stress Concern Present (05/16/2023) [facility] of Occupational Health - Occupational Stress Questionnaire [...] Gluc Sensor (FreeStyle Eileen 2 Sensor Systm) [facility] APPLY 1 SENSOR AND WEAR FOR 14 [...] 3 times daily before meals ??? HYDROcodone-acetaminophen (Hart[place]) 10-325 MG tablet Take 1 (one) tablet [...] , PCO2 , PO2 in the last 61116 hours. Invalid input(s): BICAR3 Amylase/Lipase: Invalid input(s): AMYL , LIPA Thyroid Studies: No results for input(s): TSH , T4 in the last 65710 hours. Cardiac Enzymes: Recent Labs Component Name 11/11/21223711/05/21 1350 TROPONINI <0.010 <0.010 Lipid Panel: No results for input(s): LDLCALC , HDL in the last 41867 hours. 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 Pt presents to [facility] ED with c/o lower back pain after reported fall. Neurosurgery was consulted to evaluate. [facility] NEURO SPINAL SURGERY HIGH RISK VARIABLES None [...] Gluc Sensor (FreeStyle Eileen 2 Sensor Systm) [facility] APPLY 1 SENSOR AND WEAR FOR 14 [...] Units 3 times daily before meals HYDROcodone-acetaminophen ([place]) 10-325 MG tablet Take 1 (one) tablet [...] HumaLOG KwikPen 100 UNIT/ML pen ??? HYDROcodone-acetaminophen ([place]) 10-325 MG tablet ??? hydrOXYzine HCl (Atarax) [...] removal of the device. Pt presents to [facility] ED with c/o lower back pain after [...] with Dr. Gregg at 21:17. Corby Ritchie APRN-BANDMILL OPERATOR 07/26/2023 9:00 PM documented in this encounter [...] - 07/26/2023 9:44 PM CDT [facility] Emergency Department Resident Physician Note HPI: Karly Marques is a 68 year old female with mhx of chronic lower back pain s/p T9-8 laminectomy for dorsal root column stimulator placement??with Must See [place] system??on 09/16/21 c/b infection requiring removal of [...] 5. Edema, unspecified type Choco Martin MD Straight Line [facility]ger - Emergency Medicine & Critical Care Medicine Division of Emergency Medicine Division of Pulmonary, Critical Care, and Sleep Medicine [facility] 07/26/2023 9:44 PM * Angeline Gross RN - 07/26/2023 8:52 PM CDT Bed: 15 Expected date: Expected time: Means of arrival: Comments: Med 8 ETA 10 min Aisha Marques in expected from [facility] documented in this encounter Plan of [...] URINE (08/01/2023 11:42 AM CDT) Pathologist [facility] Culture Urine >100,000 CFU/mL Escherichia coli(A) [place] 08/03/2023 12:49 AM CDT [facility] MICROBIOLOGY Urine URINE SPECIMEN OBTAINED BY [...] [facility]/ZIP Co de Phone Number [facility]CRO[facility] [address] [place] [address], [facility] [phone] * (ABNORMAL) GLUCOSE - POINT OF CARE (08/01/2023 11:36 AM CDT) Glucose WB/POC 164(H) 70 - 115 mg/dL 08/01/2023 11:40 AM CDT [facility] Specimen Type Cap Fingerstick 2023 11:40 AM T [facility] Blood BLOOD SPECIMEN / Unknown 08/01/2023 11:36 AM CDT 08/01/2023 11:40 AM CDT Watson Bearden MD LAB - POINT OF CARE ORDERABLES Performing Organization Address City/[facility]/ZIP Co de Phone Number [facility] [address] [place] [address], [place] [phone] * (ABNORMAL) URINALYSIS REFLEX TO MICROSCOPIC NO CULTURE (08/01/2023 9:31 AM CDT) Color UA Yellow Straw, Yellow 08/01/2023 10:03 AM CDT [facility] Clarity UA Slt Cloudy(A) Clear 08/01/2023 10:03 AM CDT [facility] Specific [place] UA 1.015 1.005 - 1.030 08/01/2023 10:03 AM [facility] pH UA 5.0 5.0 - 8.0 pH 08/01/2023 10:03 AM T [facility] Protein UA Negative Negative 08/01/2023 10:03 AM T [facility] Glucose UA Negative Negative 08/01/2023 10:03 AM [facility] Ketone UA Negative Negative 08/01/2023 10:03 AM [facility] Bilirubin UA Negative Negative 08/01/2023 10:03 AM [facility] Blood UA 1+(A) Negative 08/01/2023 10:03 AM [facility] Nitrite UA Positive(A) Negative 08/01/2023 10:03 AM [facility] Leukocyte Esterase 3+(A) Negative 08/01/2023 10:03 AM [facility] Urobilinogen UA Negative Negative mg/dL 08/01/2023 10:03 AM [facility] RBC UA 11-20(A) None Seen, 0-2, 3-5 /HPF 08/01/2023 10:03 AM [facility] WBC UA 51-100(A) None Seen, 0-5 /HPF 08/01/2023 10:03 AM [facility] WBC Clumps Occasional( A) None /HPF 08/01/2023 10:03 AM [facility] Bacteria UA 3+(A) None /HPF 08/01/2023 10:03 AM [facility] Squamous Epithelial Cells UA 0-2 None Seen, 0-2, 3-5 /HPF 08/01/2023 10:03 AM [facility] Mucus UA 1+ /LPF 08/01/2023 10:03 AM [facility] Urine URINE SPECIMEN OBTAINED BY CLEAN CATCH PROCEDURE / Unknown Collection / Unknown 08/01/2023 9:31 AM CDT 08/01/2023 9:51 AM [facility] - 08/01/2023 10:03 AM CDT Watson Bearden MD LAB - URINALYSIS ORD ERABLES [address] [address], [place] [phone] * (ABNORMAL) GLUCOSE - POINT OF CARE (08/01/2023 7:35 AM CDT) Glucose WB/POC 138(H) 70 - 115 mg/dL 08/01/2023 7:36 AM CDT [facility] Specimen Type Cap Fingerstick 2023 7:36 AM CDT [facility] Blood BLOOD SPECIMEN / Unknown 08/01/2023 7:35 AM CDT 08/01/2023 7:36 AM CDT Brian Bravo MD LAB - POINT OF CARE ORDERABLES Performing Organization Address City/[facility]/ZIP Co de Phone Number [address] [address], [place] [phone] * (ABNORMAL) GLUCOSE - POINT OF CARE (07/31/2023 8:10 PM CDT) Glucose WB/POC 287(H) 70 - 115 mg/dL 07/31/2023 8:15 PM CDT [facility] Specimen Type Cap Fingerstick 2023 8:15 PM CDT [facility] Blood BLOOD SPECIMEN / Unknown 07/31/2023 8:10 PM CDT 07/31/2023 8:14 PM CDT Brian Bravo MD LAB - POINT OF CARE ORDERABLES Performing Organization Address [facility] Co de Phone Number [address] [address], [place] [phone] * (ABNORMAL) GLUCOSE - POINT OF CARE (07/31/2023 3:11 PM CDT) Glucose WB/POC 161(H) 70 - 115 mg/dL 07/31/2023 3:15 PM CDT [facility] Specimen Type Cap Fingerstick 2023 3:15 PM CDT [facility] Blood BLOOD SPECIMEN / Unknown 07/31/2023 3:11 PM CDT 07/31/2023 3:15 PM CDT Brian Bravo MD LAB - POINT OF CARE ORDERABLES Performing Organization Address City/[facility]/ZIP Co de Phone Number [address] [place] [address], [place] [phone] * (ABNORMAL) GLUCOSE - POINT OF CARE (07/31/2023 11:51 AM CDT) Glucose WB/POC 147(H) 70 - 115 mg/dL 07/31/2023 4:36 PM CDT [facility] Specimen Type Cap Fingerstick 2023 4:36 PM CDT [facility] Blood BLOOD SPECIMEN / Unknown 07/31/2023 11:51 AM CDT 07/31/2023 4:36 PM CDT Brian Bravo MD LAB - POINT OF CARE ORDERABLES [facility] [address] [place] [address], [place] [phone] * (ABNORMAL) GLUCOSE - POINT OF CARE (07/31/2023 7:41 AM CDT) Glucose WB/POC 140(H) 70 - 115 mg/dL 07/31/2023 4:36 PM CDT [facility] Specimen Type Cap Fingerstick 2023 4:36 PM CDT [facility] Blood BLOOD SPECIMEN / Unknown 07/31/2023 7:41 AM CDT 07/31/2023 4:36 PM CDT Brian Bravo MD LAB - POINT OF CARE ORDERABLES [facility] [address] [place] [address], [place] [phone] * (ABNORMAL) GLUCOSE - POINT OF CARE (07/30/2023 9:32 PM CDT) Glucose WB/POC 178(H) 70 - 115 mg/dL 07/30/2023 9:35 PM CDT [facility] Specimen Type Cap Fingerstick 2023 9:35 PM CDT [facility] Blood BLOOD SPECIMEN / Unknown 07/30/2023 9:32 PM CDT 07/30/2023 9:35 PM CDT Brian Bravo MD LAB - POINT OF CARE ORDERABLES [address] [address], [place] [phone] * (ABNORMAL) GLUCOSE - POINT OF CARE (07/30/2023 3:03 PM CDT) Glucose WB/POC 230(H) 70 - 115 mg/dL 07/30/2023 3:13 PM CDT [facility] Specimen Type Cap Fingerstick 2023 3:13 PM CDT [facility] Blood BLOOD SPECIMEN / Unknown 07/30/2023 3:03 PM CDT 07/30/2023 3:13 PM CDT Brian Bravo MD LAB - POINT OF CARE ORDERABLES Performing Organization Address City/[facility]/ZIP Co de Phone Number [address] [address], [place] [phone] * (ABNORMAL) GLUCOSE - POINT OF CARE (07/30/2023 12:01 PM CDT) Glucose WB/POC 150(H) 70 - 115 mg/dL 07/30/2023 12:06 PM CDT [facility] Specimen Type Cap Fingerstick 2023 12:06 PM CDT [facility] Blood BLOOD SPECIMEN / Unknown 07/30/2023 12:01 PM CDT 07/30/2023 12:06 PM CDT Brian Bravo MD LAB - POINT OF CARE ORDERABLES [address] [address], [place] [phone] * (ABNORMAL) GLUCOSE - POINT OF CARE (07/30/2023 7:15 AM CDT) Glucose WB/POC 133(H) 70 - 115 mg/dL 07/30/2023 7:25 AM [facility] Specimen Type Cap Fingerstick 2023 7:25 AM [facility] Blood BLOOD SPECIMEN / Unknown 07/30/2023 7:15 AM CDT 07/30/2023 7:25 AM CDT Brian Bravo MD LAB - POINT OF CARE ORDERABLES Performing Organization Address City/State/[facility] Co de Phone Number [facility] [address] [place] [address], [facility] [phone] * (ABNORMAL) RENAL FUNCTION PANEL (07/30/2023 1:28 AM CDT) BUN 20 7 - 26 mg/dL 07/30/2023 2:31 AM [facility] Creatinine 0.67 0.56 - 0.96 mg/dL 07/30/2023 2:31 AM [facility] Sodium 136 136 - 145 mmol/L 07/30/2023 2:31 AM [facility] Potassium 4.4 3.5 - 4.5 mmol/L 07/30/2023 2:31 AM [facility] Chloride 101 98 - 107 mmol/L 07/30/2023 2:31 AM [facility] CO2 27 22 - 29 mmol/L 07/30/2023 2:31 AM [facility] Glucose 238(H) 70 - 115 mg/dL 07/30/2023 2:31 AM [facility] Albumin 2.9(L) 3.4 - 5.0 g/dL 07/30/2023 2:31 AM [facility] Calcium 9.4 8.4 - 10.2 mg/dL 07/30/2023 2:31 AM [facility] Phosphorus 3.0 2.9 - 5.1 mg/dL 07/30/2023 2:31 AM [facility] Anion Gap 8 6 - 16 07/30/2023 2:31 AM [facility] BUN/Creatinine Ratio 30(H) 7 - 23 07/30/2023 2:31 AM [facility] Osmolality Calculated 292 275 - 295 mOsm/kg 07/30/2023 2:31 AM [facility] eGFR by CKD-EPI >90 >=90 mL/min/1.7 3 m2 07/30/2023 2:31 AM [facility] Blood BLOOD SPECIMEN / Unknown Lab Venipuncture / Unknown 07/30/2023 1:28 AM CDT 07/30/2023 2:04 AM CDT Brian Bravo MD LAB - CHEMISTRY ANGEL SPEARS Performing Organization Address City/[facility]/ZIP Co de Phone Number [facility] [address] [place] [address], [place] [phone] * MAGNESIUM BLOOD (07/30/2023 1:28 AM CDT) Pathologist [facility] Magnesium 1.8 1.6 - 2.6 mg/dL 07/30/2023 2:31 AM [facility] Blood BLOOD SPECIMEN / Unknown Lab Venipuncture / Unknown 07/30/2023 1:28 AM CDT 07/30/2023 2:04 AM CDT Brian Bravo MD LAB - CHEMISTRY ANGEL SPEARS Performing Organization Address [facility]/ZIP Co de Phone Number [address] [address], [place] [phone] * (ABNORMAL) CBC W/O DIFFERENTIAL (07/30/2023 1:28 AM CDT) WBC 11.6(H) 4.0 - 10.7 x10E9/L 07/30/2023 2:10 AM [facility] RBC Count 4.20 3.90 - 5.20 x10E12/L 07/30/2023 2:10 AM [facility] Hemoglobin 12.0 11.9 - 15.8 g/dL 07/30/2023 2:10 AM [facility] Hematocrit 37.1 34.8 - 46.1 % 07/30/2023 2:10 AM [facility] MCV 88.3 80.0 - 98.0 fL 07/30/2023 2:10 AM CDT [facility] MCH 28.6 26.7 - 33.6 pg 07/30/2023 2:10 AM T [facility] MCHC 32.3 31.7 - 36.3 g/dL 07/30/2023 2:10 AM CDT [facility] RDW-CV 13.4 11.3 - 14.8 % 07/30/2023 2:10 AM T [facility] Platelet Count 265 150 - 420 x10E9/L 07/30/2023 2:10 AM T [facility] MPV 10.2 7.8 - 11.4 fL 07/30/2023 2:10 AM T [facility] Blood BLOOD SPECIMEN / Unknown Lab Venipuncture / Unknown 07/30/2023 1:28 AM CDT 07/30/2023 2:04 AM CDT Brian Bravo MD LAB - HEMATOLOGY ORD ERABLES [address] [address], [place] [phone] * (ABNORMAL) GLUCOSE - POINT OF CARE (07/29/2023 9:47 PM CDT) Glucose WB/POC 200(H) 70 - 115 mg/dL 07/29/2023 9:51 PM CDT [facility] Specimen Type Cap Fingerstick 2023 9:51 PM CDT [facility] Blood BLOOD SPECIMEN / Unknown 07/29/2023 9:47 PM CDT 07/29/2023 9:51 PM CDT Brian Bravo MD LAB - POINT OF CARE ORDERABLES [facility] [address] [place] [address], [place] [phone] * (ABNORMAL) GLUCOSE - POINT OF CARE (07/29/2023 4:24 PM CDT) Glucose WB/POC 262(H) 70 - 115 mg/dL 07/29/2023 4:25 PM CDT [facility] Specimen Type Cap Fingerstick 2023 4:25 PM CDT [facility] Blood BLOOD SPECIMEN / Unknown 07/29/2023 4:24 PM CDT 07/29/2023 4:25 PM CDT Brian Bravo MD LAB - POINT OF CARE ORDERABLES Performing Organization Address City/[facility] Co de Phone Number [address] [address], [place] [phone] * (ABNORMAL) GLUCOSE - POINT OF CARE (07/29/2023 11:26 AM CDT) Glucose WB/POC 171(H) 70 - 115 mg/dL 07/29/2023 11:28 AM CDT [facility] Specimen Type Cap Fingerstick 2023 11:28 AM CDT [facility] Blood BLOOD SPECIMEN / Unknown 07/29/2023 11:26 AM CDT 07/29/2023 11:28 AM CDT Brian Bravo MD LAB - POINT OF CARE ORDERABLES Performing Organization Address [facility] Co de Phone Number [address] [address], [place] [phone] * (ABNORMAL) GLUCOSE - POINT OF CARE (07/29/2023 7:36 AM CDT) Glucose WB/POC 226(H) 70 - 115 mg/dL 07/29/2023 7:37 AM CDT [facility] Specimen Type Cap Fingerstick 2023 7:37 AM CDT [facility] Blood BLOOD SPECIMEN / Unknown 07/29/2023 7:36 AM CDT 07/29/2023 7:37 AM CDT Brian Bravo MD LAB - POINT OF CARE ORDERABLES Performing Organization Address City/[facility]/ZIP Co de Phone Number [address] [place] [address], [place] [phone] * (ABNORMAL) GLUCOSE - POINT OF CARE (07/28/2023 9:17 PM CDT) Glucose WB/POC 274(H) 70 - 115 mg/dL 07/28/2023 9:22 PM CDT [facility] Specimen Type Cap Fingerstick 2023 9:22 PM CDT [facility] Blood BLOOD SPECIMEN / Unknown 07/28/2023 9:17 PM CDT 07/28/2023 9:22 PM CDT Kip Rocha MD LAB - POINT OF CARE ORDERABLES [facility] [address] [place] [address], [place] [phone] * (ABNORMAL) GLUCOSE - POINT OF CARE (07/28/2023 4:44 PM CDT) Glucose WB/POC 254(H) 70 - 115 mg/dL 07/28/2023 4:46 PM CDT [facility] Specimen Type Arterial 07/28/2023 4:46 PM CDT [facility] Blood BLOOD SPECIMEN / Unknown 07/28/2023 4:44 PM CDT 07/28/2023 4:46 PM CDT Kip Rocha MD LAB - POINT OF CARE ORDERABLES [facility] [address] [place] [address], [place] [phone] * (ABNORMAL) GLUCOSE - POINT OF CARE (07/28/2023 11:33 AM CDT) Glucose WB/POC 190(H) 70 - 115 mg/dL 07/28/2023 11:38 AM CDT [facility] Specimen Type Arterial 07/28/2023 11:38 AM CDT [facility] Blood BLOOD SPECIMEN / Unknown 07/28/2023 11:33 AM CDT 07/28/2023 11:38 AM CDT Kip Rocha MD LAB - POINT OF CARE ORDERABLES [address] [address], [place] [phone] * (ABNORMAL) GLUCOSE - POINT OF CARE (07/28/2023 7:47 AM CDT) Glucose WB/POC 144(H) 70 - 115 mg/dL 07/28/2023 7:49 AM CDT [facility] Specimen Type Arterial 07/28/2023 7:49 AM CDT [facility] Blood BLOOD SPECIMEN / Unknown 07/28/2023 7:47 AM CDT 07/28/2023 7:49 AM CDT Kip Rocha MD LAB - POINT OF CARE ORDERABLES Performing Organization Address City/[facility]/ZIP Co de Phone Number [address] [address], [place] [phone] * (ABNORMAL) GLUCOSE - POINT OF CARE (07/27/2023 7:52 PM CDT) Glucose WB/POC 258(H) 70 - 115 mg/dL 07/27/2023 8:04 PM CDT [facility] Specimen Type Cap Fingerstick 2023 8:04 PM CDT [facility] Blood BLOOD SPECIMEN / Unknown 07/27/2023 7:52 PM CDT 07/27/2023 8:04 PM CDT Kip Rocha MD LAB - POINT OF CARE ORDERABLES [address] [address], [place] [phone] * (ABNORMAL) GLUCOSE - POINT OF CARE (07/27/2023 6:19 PM CDT) Glucose WB/POC 219(H) 70 - 115 mg/dL 07/27/2023 6:28 PM CDT [facility] Specimen Type Cap Fingerstick 2023 6:28 PM CDT [facility] Blood BLOOD SPECIMEN / Unknown 07/27/2023 6:19 PM CDT 07/27/2023 6:28 PM CDT Kip Rocha MD LAB - POINT OF CARE ORDERABLES Performing Organization Address [facility]/ZIP Co de Phone Number [address] [address], [facility] [phone] * (ABNORMAL) GLUCOSE - POINT OF CARE (07/27/2023 1:14 PM CDT) Glucose WB/POC 117(H) 70 - 115 mg/dL 07/27/2023 1:22 PM CDT [facility] Specimen Type Cap Fingerstick 2023 1:22 PM CDT [facility] Blood BLOOD SPECIMEN / Unknown 07/27/2023 1:14 PM CDT 07/27/2023 1:22 PM CDT Kip Rocha MD LAB - POINT OF CARE ORDERABLES Performing Organization Address [facility] Co de Phone Number [address] [address], [facility] [phone] * VAS LEFT VENOUS DUPLEX LE (07/27/2023 [...] Type Cap Fingerstick 2023 8:21 AM CDT [facility] Blood BLOOD SPECIMEN / Unknown 07/27/2023 8:17 AM CDT 07/27/2023 8:21 AM CDT Kip Rocha MD LAB - POINT OF CARE ORDERABLES [facility] [address] [place] [address], [facility] [phone] * (ABNORMAL) CULTURE URINE (07/27/2023 6:19 AM CDT) Culture Urine >100,000 CFU/mL Escherichia coli(A) TERRANCE 07/29/2023 7:46 AM CDT [facility] Urine URINE SPECIMEN OBTAINED BY [...] Martin MD LAB - MICROBIOLOGY O RDERABLES [facility] [address] [place] [address], [facility] [phone] * (ABNORMAL) URINE MICROSCOPIC ONLY REFLEX TO CULTURE (07/27/2023 6:19 AM CDT) Reflex Status Culture to follow 07/27/2023 6:58 AM CDT [facility] RBC UA 0-2 None Seen, 0-2, 3-5 /HPF 07/27/2023 6:58 AM CDT [facility] WBC UA 21-50(A) None Seen, 0-5 /HPF 07/27/2023 6:58 AM CDT [facility] Bacteria UA Trace(A) None /HPF 07/27/2023 6:58 AM CDT [facility] Squamous Epithelial Cells UA None Seen None Seen, 0-2, 3-5 /HPF 07/27/2023 6:58 AM T [facility] Mucus UA 1+ /LPF 07/27/2023 6:58 AM CDT [facility] Urine URINE SPECIMEN OBTAINED BY CLEAN CATCH PROCEDURE / Unknown Collection / Unknown 07/27/2023 6:19 AM CDT 07/27/2023 6:29 AM CDT [facility] - 07/27/2023 6:58 AM CDT Choco Martin MD LAB - URINALYSIS ORD ERABLES Performing Organization Address City/[facility]/ZIP Co de Phone Number [facility] [address] [place] [address], [place] [phone] * (ABNORMAL) URINALYSIS REFLEX MICROSCOPIC REFLEX CULTURE (07/27/2023 6:19 AM CDT) Color UA Yellow Straw, Yellow 07/27/2023 6:46 AM [facility] Clarity UA Slt Cloudy(A) Clear 07/27/2023 6:46 AM [facility] Specific [place] UA 1.012 1.005 - 1.030 07/27/2023 6:46 AM [facility] pH UA 5.0 5.0 - 8.0 pH 07/27/2023 6:46 AM [facility] Protein UA Negative Negative 07/27/2023 6:46 AM [facility] Glucose UA Negative Negative 07/27/2023 6:46 AM [facility] Ketone UA Negative Negative 07/27/2023 6:46 AM [facility] Bilirubin UA Negative Negative 07/27/2023 6:46 AM [facility] Blood UA 1+(A) Negative 07/27/2023 6:46 AM [facility] Nitrite UA Positive(A) Negative 07/27/2023 6:46 AM [facility] Leukocyte Esterase Trace(A) Negative 07/27/2023 6:46 AM [facility] Urobilinogen UA Negative Negative mg/dL 07/27/2023 6:46 AM [facility] Urine URINE SPECIMEN OBTAINED BY CLEAN CATCH PROCEDURE / Unknown Collection / Unknown 07/27/2023 6:19 AM CDT 07/27/2023 6:29 AM CDT Narrative [facility] - 07/27/2023 6:46 AM CDT Choco Martin MD LAB - URINALYSIS ORD ERABLES [facility] [address] [place] [address], [facility] [phone] * TYPE + SCREEN PANEL (07/26/2023 10:26 PM CDT) Antibody Screen NEG 11:23 PM CDT [facility] ABO Rh O POS 07/26/2023 11:23 PM CDT [facility] Blood Bank BLOOD SPECIMEN / Unknown Venipuncture / Unknown 07/26/2023 10:26 PM CDT 07/26/2023 10:31 PM CDT Choco Martin MD LAB - BLOOD BANK ORD ERABLES Performing Organization Address [facility]/ZIP Co de Phone Number [facility] [address] [place] [address], [facility] [phone] * PT-INR [facility] (07/26/2023 10:26 PM CDT) PT 14.2 12.1 - 14.8 Seconds 07/26/2023 10:56 PM CDT [facility] INR 1.1 See Comment 07/26/2023 10:56 PM T [facility] Comment:The suggested therap eutic range for standard coumadin (warfarin) therapy is an INR of 2.0-3.0. For high-risk patients (Mechanical Mitral Valve Prosthesis, etc.), the suggested prophylactic therapeutic range is an INR of 2.5-3.5. Blood BLOOD SPECIMEN / Unknown Venipuncture / Unknown 07/26/2023 10:26 PM CDT 07/26/2023 10:34 PM CDT Choco Martin MD LAB - COAGULATION OR DERABLES Performing Organization Address City/[facility]/ZIP Co de Phone Number [facility] [address] [place] [address], [facility] [phone] * MAGNESIUM BLOOD (07/26/2023 10:26 PM CDT) Magnesium 1.6 1.6 - 2.6 mg/dL 07/26/2023 11:00 PM CDT [facility] Blood BLOOD SPECIMEN / Unknown Venipuncture / Unknown 07/26/2023 10:26 PM CDT 07/26/2023 10:34 PM CDT Choco Martin MD LAB - CHEMISTRY ANGEL Herrera Organization Address City/State/ZIP Co de Phone Number [facility] [address] [place] [address], [facility] [phone] * (ABNORMAL) COMPREHENSIVE METABOLIC PANEL (07/26/2023 10:26 PM CDT) BUN 13 7 - 26 mg/dL 07/26/2023 11:00 PM [facility] Creatinine 0.63 0.56 - 0.96 mg/dL 07/26/2023 11:00 PM [facility] Sodium 141 136 - 145 mmol/L 07/26/2023 11:00 PM [facility] Potassium 3.9 3.5 - 4.5 mmol/L 07/26/2023 11:00 PM [facility] Chloride 104 98 - 107 mmol/L 07/26/2023 11:00 PM [facility] CO2 28 22 - 29 mmol/L 07/26/2023 11:00 PM [facility] Glucose 131(H) 70 - 115 mg/dL 07/26/2023 11:00 PM [facility] Calcium 9.5 8.4 - 10.2 mg/dL 07/26/2023 11:00 PM [facility] Protein Total 7.5 6.0 - 8.3 g/dL 07/26/2023 11:00 PM [facility] Albumin 3.1(L) 3.4 - 5.0 g/dL 07/26/2023 11:00 PM [facility] Bilirubin Total 0.5 0.2 - 1.2 mg/dL 07/26/2023 11:00 PM [facility] Alkaline Phosphatase 74 40 - 150 U/L 07/26/2023 11:00 PM [facility] ALT 19 5 - 55 U/L 07/26/2023 11:00 PM [facility] AST 17 5 - 34 U/L 07/26/2023 11:00 PM [facility] Anion Gap 9 6 - 16 07/26/2023 11:00 PM CDT [facility] BUN/Creatinine Ratio 21 7 - 23 07/26/2023 11:00 PM [facility] Osmolality Calculated 294 275 - 295 mOsm/kg 07/26/2023 11:00 PM [facility] Albumin/Globulin Ratio 0.7(L) 1.1 - 2.3 07/26/2023 11:00 PM [facility] eGFR by CKD-EPI >90 >=90 mL/min/1.7 3 m2 07/26/2023 11:00 PM [facility] Blood BLOOD SPECIMEN / Unknown Venipuncture / Unknown 07/26/2023 10:26 PM CDT 07/26/2023 10:34 PM T Choco Martin MD LAB - CHEMISTRY ANGEL SPEARS [facility] Organization Address City/State/ZIP Co de Phone Number [facility] [address] [place] [address], [facility] [phone] * (ABNORMAL) CBC W AUTO DIFFERENTIAL (07/26/2023 10:26 PM CDT) WBC 10.0 4.0 - 10.7 x10E9/L 07/26/2023 10:42 PM [facility] RBC Count 4.04 3.90 - 5.20 x10E12/L 07/26/2023 10:42 PM [facility] Hemoglobin 11.7(L) 11.9 - 15.8 g/dL 07/26/2023 10:42 PM [facility] Hematocrit 36.1 34.8 - 46.1 % 07/26/2023 10:42 PM [facility] MCV 89.4 80.0 - 98.0 fL 07/26/2023 10:42 PM [facility] MCH 29.0 26.7 - 33.6 pg 07/26/2023 10:42 PM [facility] MCHC 32.4 31.7 - 36.3 g/dL 07/26/2023 10:42 PM [facility] RDW-CV 13.5 11.3 - 14.8 % 07/26/2023 10:42 PM [facility] Platelet Count 268 150 - 420 x10E9/L 07/26/2023 10:42 PM [facility] MPV 9.9 7.8 - 11.4 fL 07/26/2023 10:42 PM [facility] Neutrophil % 60.2 41.0 - 74.0 % 07/26/2023 10:42 PM [facility] Lymphocyte % 28.9 17.0 - 47.0 % 07/26/2023 10:42 PM [facility] Monocyte % 7.6 3.0 - 11.0 % 07/26/2023 10:42 PM [facility] Eosinophil % 2.7 0.0 - 7.0 % 07/26/2023 10:42 PM [facility] Basophil % 0.3 0.0 - 1.6 % 07/26/2023 10:42 PM [facility] Immature Granulocytes % 0.3 0.0 - 1.0 % 07/26/2023 10:42 PM [facility] Neutrophil Absolute 5.98 1.60 - 7.50 x10E9/L 07/26/2023 10:42 PM [facility] Lymphocyte Absolute 2.88 1.00 - 4.40 x10E9/L 07/26/2023 10:42 PM [facility] Monocyte Absolute 0.76 0.15 - 1.00 x10E9/L 07/26/2023 10:42 PM [facility] Eosinophil Absolute 0.27 0.00 - 0.60 x10E9/L 07/26/2023 10:42 PM [facility] Basophil Absolute 0.03 0.00 - 0.13 x10E9/L 07/26/2023 10:42 PM [facility] Blood BLOOD SPECIMEN / Unknown Venipuncture / Unknown 07/26/2023 10:26 PM CDT 07/26/2023 10:34 PM [facility] Choco Martin MD LAB - HEMATOLOGY ORD ERABLES [facility] [address] [place] [address] [phone] documented in this encounter Visit Diagnoses Diagnosis [...] with food 0837 ($ Given - Provider: Kahnh Ray RN) 0831 ($ Given - Provider: [...] Ray, NURIS) 0830 ($ Given - Provider: Chantel Britton, NUIRS) 0812 ($ Given - Provider: Khanh Ray, [...] NURIS) 0830 (See Alternative - Provider: Chantel Birtton, NURIS)1327 (See Alternative - Provider: Chantel Britton, [...] intake documented in this encounter Care Teams Field Hockey And Lacrosse Coach Relationship Specialty Start Date End Date Justen Gale MD PCP - General 07/05/21 documented as of this encounter
--- OUTSIDE RECORDS SUMMARY | 2024-04-26 06:52 | XMS_ITS | Encounter Summary ---
Author Organization [facility] Address [address] [place] [address] Care Team Providers Care Commercial Door Installer Name Role Phone Justen Gale MD Primary Care Provider [phone] Encounter Details Date Type Department Care Team [...] medical care, and heating? Somewhat hard 05/16/2023 [facility] of Occupat ional Health - Occupational Stress [...] slept in a assisted (including now)? No 05/16/2023 Sex and Gender [...] filedocumented in this encounter Care Teams Commercial Door Installer Relationship Specialty Start Date End Date Justen Gale MD PCP - General 07/05/21 documented as of this encounter
--- OUTSIDE RECORDS SUMMARY | 2024-04-26 06:52 | XMS_ITS | Encounter Summary ---
Author Organization [facility] Address [address] [place] [address] Care Team Providers Care Band Manager Name Role Phone Justen Gale MD Primary Care Provider [phone] Reason for Visit * Reason Comments Follow-up * Consult, Test & Treat (Routine) - Pending Review Specialty Diagnoses / Procedures Referred By Elyssa t Referred To Contact Neurological Surgery Diagnoses Left leg weakness Justen Gale MD [address] [place] [address] Maxi Gregg MD [address] [place] [address] Referral ID Status Reason Start Date Expiration Date V isits Requested Visits Authorized [id number] Pending Review 06/05/2023 2024 12 12 Encounter Details Date Type Department Care Team (Late st Contact Info) Description 06/05/2023 1:15 PM ELECTRICAL AND RADIO MOCK UP MECHANIC Office Visit [facility] - Neurosurgery [address] [place] [address] Rd [address] [place] [address] Maxi Gregg MD [address] [place] [address] S/P insertion of spinal cord [...] medical care, and heating? Somewhat hard 05/16/2023 [facility] of Occupat ional Health - Occupational Stress [...] Comments Blood Pressure 172/85 06/05/2023 1:34 PM ELECTRICAL AND RADIO MOCK UP MECHANIC Pulse 82 06/05/2023 1:34 PM ELECTRICAL AND RADIO MOCK UP MECHANIC Temperature 36.6 ??C (97.8 ??F) 06/05/2023 1:34 PM CS T Respiratory Rate - - Oxygen Saturation 97% 06/05/2023 1:34 PM ELECTRICAL AND RADIO MOCK UP MECHANIC Inhaled Oxygen Concentration - - Weight 123.8 kg (273 lb) 06/05/2023 1:34 PM ELECTRICAL AND RADIO MOCK UP MECHANIC Height 154.9 cm (5' 1 ) 06/05/2023 1:34 PM ELECTRICAL AND RADIO MOCK UP MECHANIC Body Mass Index 51.58 06/05/2023 1:34 PM ELECTRICAL AND RADIO MOCK UP MECHANIC documented in this encounter Functional Status Functional [...] Melly Banks APRN-CNP - 06/05/2023 1:52 PM ELECTRICAL AND RADIO MOCK UP MECHANIC Follow up with Dr. Gregg as needed For any questions please call Angeline (Dr. Gregg's nurse) at [phone] To schedule an appointment, please call [phone] If needed, the fax number is [phone] TRICAL AND RADIO MOCK UP MECHANIC documented in this encounter Progress Notes * [...] No Stress: No Stress Concern Present (05/16/2023) [facility] - Occupational Stress Questionnaire Feeling of Stress : Not at all Housing Stability: Low Risk (05/16/2023) Housing Stability Vital Sign Unable to Pay for Housing in the Last Year: No Number of Places Lived in the Last Year: 1 Unstable Housing in the Last Year: No Past Medical History: Diagnosis Date Breast cancer ([facility]) Chest pain DVT (deep venous thrombosis) ([facility]) GERD (gastroesophageal reflux disease) LUL (obstructive sleep apnea) w cpap Other pulmonary embolism without acute cor pulmonale ([facility]) rls Type 2 diabetes mellitus without complications ([facility]) Past Surgical History: Procedure Laterality Date Arthroplasty [...] Units 3 times daily before meals HYDROcodone-acetaminophen ([place]) 10-325 MG tablet Take 1 (one) tablet [...] for her to meet with the [employer] commercial sales representative in order to adjust her stimulation parameters. At this point I don't believe that any additional neurosurgical intervention is indicated for her. Thank you for allowing us to participate in the care of the patient. MD AMITA Varghese/macarena .[id number] .[id number] Doc ID: [id number] Voice Job ID: [id number] TRICAL AND RADIO MOCK UP MECHANIC documented in this encounter Plan of Treatment Not on file documented as of this encounter Visit Diagnoses Diagnosis S/P insertion of spinal cord stimulator- Primary documented in this encounter Care Teams Band Manager Relationship Specialty Start Date End Date Justen Gale MD PCP - General 07/05/21 documented as of this encounter
--- OUTSIDE RECORDS SUMMARY | 2024-04-26 06:52 | XMS_ITS | Encounter Summary ---
Author Organization [facility] Address [address] [place] [address] Care Team Providers Care Career Services Assistant Name Role Phone Justen Gale MD Primary Care Provider [phone] Encounter Details Date Type Department Care Team [...] medical care, and heating? Somewhat hard 05/16/2023 [facility] [place] of Occupat ional Health [...] filedocumented in this encounter Care Teams Career Services Assistant Relationship Specialty Start Date End Date Justen Gale MD PCP - General 07/05/21 documented as of this encounter
--- OUTSIDE RECORDS SUMMARY | 2024-04-26 06:52 | XMS_ITS | Encounter Summary ---
Author Organization [facility] Address [address] [place] [address] Care Team Providers Care Breeding Manager Name Role Phone Justen Gale MD Primary Care Provider [phone] Encounter Details Date Type Department Care Team [...] medical care, and heating? Somewhat hard 05/16/2023 [facility] [place] of Occupat ional Health - Occupational Stress [...] on filedocumented in this encounter Care Teams Breeding Manager Relationship Specialty Start Date End Date Justen Gale MD PCP - General 07/05/21 documented as of this encounter
--- OUTSIDE RECORDS SUMMARY | 2024-04-26 06:52 | XMS_ITS | Encounter Summary ---
Author Organization [facility] Address [address] [place] [address] Care Team Providers Care Phytochemistry Professor Name Role Phone Justen Gale MD Primary Care Provider [phone] Reason for Visit * Reason Comments Establish Care * Consult, Test & Treat (Routine) - Closed Specialty Diagnoses / Procedures Referred By Elyssa t Referred To Contact Neurological Surgery Diagnoses Follow-up exam Justen Gale MD [address] [place] [address] Maxi Gregg MD [address] [place] [address] [address] [place] [address] Referral ID Status Reason Start Date Expiration Date Visits Re quested Visits Authorized [id number] Closed 07/17/2023 07/16/2024 1 1 Encounter Details Date Type Department Care Team (Late st Contact Info) Description 07/17/2023 2:45 PM CDT Office Visit [facility] - Neurosurgery [address] [place] [address], [place] [address] Maxi Gregg MD [address] [place] [address] [address] [address] S/P insertion of spinal cord [...] medical care, and heating? Somewhat hard 05/16/2023 [facility] [place] of Occupat ional Health - Occupational Stress [...] slept in a half-way (including now)? No 05/16/2023 Sex and Gender [...] please call Angeline (Dr. Gregg's nurse) at [phone] To schedule an appointment, please call [phone] If needed, the fax number is [phone] documented in this encounter Progress Notes * [...] presents to clinic today accompanied by the 9+ rep. Since she was last seen, she [...] Chest pain ??? DVT (deep venous thrombosis) ([facility]) ??? GERD (gastroesophageal reflux disease) ??? LUL (obstructive sleep apnea) w cpap ??? Other pulmonary embolism without acute cor pulmonale (HCC) ??? rls ??? Type 2 diabetes mellitus without complications ([facility]) PSH: Past Surgical History: Procedure Laterality [...] HumaLOG KwikPen 100 UNIT/ML pen ??? HYDROcodone-acetaminophen ([place]) 10-325 MG tablet ??? hydrOXYzine HCl (Atarax) [...] with Dr. Gregg as needed. Melly Banks, ZAMZAM-CIGAR WRAPPER 07/17/2023 2:48 PM CC: Justen Gale MD (PCP) documented in this encounter Plan of Treatment Not on file documented as of this encounter Visit Diagnoses Diagnosis S/P insertion of spinal cord stimulator- Primary Chronic bilateral low back pain without sciatica documented in this encounter Care Teams Phytochemistry Professor Relationship Specialty Start Date End Date Justen Gale MD PCP - General 07/05/21 documented as of this encounter
--- OUTSIDE RECORDS SUMMARY | 2024-04-26 06:52 | XMS_ITS | Encounter Summary ---
Author Organization [facility] Address [address] [facility] [place] [address] Care Team Providers Care Fitting Room Operator Name Role Phone Justen Gale MD Primary Care Provider [phone] Reason for Visit * Reason Comments Shortness of Breath * Auth/Cert (Routine) Specialty Diagnoses / Procedures Referred By Contac t Referred To Contact Referral ID Status Reason Start Date Expiration Date Visits Re quested Visits Authorized [id number] 1 1 Encounter Details Date Type Department Care Team (Late st Contact Info) Description 06/16/2023 2:28 PM BOBCAT OPERATOR - 06/17/2023 1:00 PM BOBCAT OPERATOR Emergency SL SHORT STAY UNIT [facility] [place] [phone] Roger Snowden MD [address] [facility] DIV [place] [address] Spencer Friend III, MD [address] DIV OF [facility] [place] [phone] Luis Armando Saravia MD [address] [facility] DIV OF [facility] [place] [address] Hospitalist Discharge Disposition: Home or [...] medical care, and heating? Somewhat hard 05/16/2023 [place] [facility] - Occupational Stress [...] slept in a snf (including now)? No 05/16/2023 Sex and Gender Information Value Date Recorded Sex Assigned at Not on file Gender Identity Not on file Sexual Orientation Not on file documented as of this encounter Last Filed Vital Signs Vital Sign Reading Time Taken Comments Blood Pressure 93/56 06/17/2023 8:03 AM BOBCAT OPERATOR Pulse 70 06/17/2023 8:03 AM BOBCAT OPERATOR Temperature 36.9 ??C (98.4 ??F) 06/17/2023 8:03 AM CS T Respiratory Rate 18 06/17/2023 8:03 AM BOBCAT OPERATOR Oxygen Saturation 95% 06/17/2023 8:03 AM BOBCAT OPERATOR Inhaled Oxygen Concentration 21% 06/17/2023 1 2:30 AM BOBCAT OPERATOR Weight 122.5 kg (270 lb) 06/17/2023 12:00 AM BOBCAT OPERATOR Height 154.9 cm (5' 0.98 ) 06/17/2023 12:[address] Body Mass Index 51.04 06/17/2023 12:00 AM BOBCAT OPERATOR documented in this encounter Functional Status Functional [...] Physician Discharge Summary Patient ID: Karly Marques [id number] 68 year old 1955 Admit date: 06/16/2023 [...] HYDROcodone-acetaminophen 10-325 MG tablet Commonly known as: [place] Quantity Dispensed: 12 tablet Take 1 (one) [...] Luis Armando Saravia MD 06/17/2023 11:32 AM AT OPERATOR documented in this encounter Discharge Instructions * Discharge Instructions* Luis Armando Saravia MD - 06/17/2023 11:34 AM BOBCAT OPERATOR Dear Ms Marques, Please continue your pain medication as needed including the flexeril Please continue the rest of your medications Please follow-up with Dr Figueroa as outpatient AT OPERATOR documented in this encounter Medications at [...] FOR 10 DAYS 06/02/2023 08/01/2023 HYDROcodone-acetaminoph en ([place]) 10-325 MG tabletIndications:Chron ic left-sided low back [...] Cota - 06/17/2023 1:00 PM CST Discharge Evs Attendant received request from to arrange follow-up appointment for Patientwith Neurosurgery. This law writer called [phone] and spoke with Avila. Evs Attendant was able to obtain follow-up appointment for Patient with on 07/03/23 at 10:30am. No further follow-up needs from soccer commentator indicated at this time. Cinda Cota, Discharge Evs Attendant 06/20/2023 AT OPERATOR * Fabiola Roberts RN - 06/17/2023 9:47 [...] Achieves restful, refreshing sleep pattern. Outcome: Progressing AT OPERATOR * Albert Carrasco RN - 06/17/2023 12:18 AM CST Problem: Pain/Discomfort Goal: Patient exhibits reduced pain/discomfort as evidenced by pain scores Outcome: Progressing Goal: Patient uses pharmacological and non-pharmacological pain management strategies. Outcome: Progressing Goal: Patient verbalizes acceptable level of pain relief and ability to engage in desired activity. Outcome: Progressing AT OPERATOR documented in this encounter H&P Notes * Leo Tolentino DO - 06/17/2023 7:02 AM CST [facility] INTERNAL MEDICINE HISTORY & PHYSICAL [...] 06/05/23 and recommended to meet with [facility] apprenticeship representative for device adjustment with no surgical [...] Diagnosis Date ??? Breast cancer ([facility]) ??? Chest pain ??? DVT (deep venous thrombosis) ([facility]) ??? GERD (gastroesophageal reflux disease) ??? LUL (obstructive sleep apnea) w cpap ??? Other pulmonary embolism without acute cor pulmonale ([facility]) ??? rls ??? Type 2 diabetes mellitus without complications ([facility]) Past Surgical History: Past Surgical History: Procedure [...] No Stress: No Stress Concern Present (05/16/2023) [place] [facility] - Occupational Stress Questionnaire [...] 3 times daily before meals ??? HYDROcodone-acetaminophen ([place]) 10-325 MG tablet Take 1 (one) tablet [...] , PCO2 , PO2 in the last 84103 hours. Invalid input(s): BICAR3 Amylase/Lipase: Invalid input(s): AMYL , LIPA Thyroid Studies: No results for input(s): TSH , T4 in the last 26930 hours. Cardiac Enzymes: Recent Labs Component Name 11/11/21223711/05/21 1350 TROPONINI <0.010 <0.010 Lipid Panel: No results for input(s): LDLCALC , HDL in the last 54078 hours. ASSESSMENT & PLAN Chronic midline low [...] seen NSGY outpatient who recommended meeting with apprenticeship representative to adjust device settings however patient [...] Tolentino DO Internal Medicine Resident M - [facility] 06/16/2023 7:47 PM AT OPERATOR Associated attestation - Luis rAmando Saravia MD - 06/17/2023 11:47 AM BOBCAT OPERATOR I have personally and independently examined the patient and reviewed the chart and all pertinent data including imaging and labs. I agree with the General Purchasing Agent with the note and treatment plan for [...] GERD, DM and LUL, who presented to [facility] ED on 06/16 with acute on chronic back pain x 1 DAY days. Pain radiates into her right hiop. She denies trauma. She reportedly turned the stimulator on yesterday but turned it off again when it worsened the pain. Of note, patient recently admitted to [place] [place] ED on 04/17/23 and again on 05/16/23 w/ similar complaints. She was admitted for pain control. Past Medical History: Diagnosis Date ??? Breast cancer ([facility]) ??? Chest pain ??? DVT (deep venous thrombosis) ([facility]) ??? GERD (gastroesophageal reflux disease) ??? LUL (obstructive sleep apnea) w cpap ??? Other pulmonary embolism without acute cor pulmonale ([facility]) ??? rls ??? Type 2 diabetes mellitus without complications ([facility]) Past Surgical History: Procedure Laterality [...] (one) capsule by mouth once daily HYDROcodone-acetaminophen ([place]) 10-325 MG tablet Take 1 (one) tablet [...] HumaLOG KwikPen 100 UNIT/ML pen ??? HYDROcodone-acetaminophen ([place]) 10-325 MG tablet ??? hydrOXYzine HCl (Atarax) [...] Cobb MD 06/16/2023 5:33 PM Ascom Pager AT OPERATOR documented in this encounter ED Notes * Lila Lal RN - 06/16/2023 11:38 PM CST Report given to NURIS Driscoll AT OPERATOR * Lila Castillo MD - 06/16/2023 6:29 [...] sciatica Lila Castillo MD 06/16/2023 6:29 PM AT OPERATOR * Roger Snowden MD - 06/16/2023 2:58 [...] Diagnosis Date ??? Breast cancer ([facility]) ??? Chest pain ??? DVT (deep venous thrombosis) ([facility]) ??? GERD (gastroesophageal reflux disease) ??? LUL (obstructive sleep apnea) w cpap ??? Other pulmonary embolism without acute cor pulmonale ([facility]) ??? rls ??? Type 2 diabetes mellitus without complications ([facility]) Past Surgical History: Procedure Laterality [...] No Stress: No Stress Concern Present (05/16/2023) [place] [facility] [employer] - Occupational Stress Questionnaire [...] DATE/TIME OF EXAM: 06/16/2023 3:18 PM, LOCATION [facility] INDICATION: R06.02: Shortness of breath ADDITIONAL [...] intact. Report dictated by Ulises Sanford MD, (Box Blank Machine Feeder). I, Raquel Cedillo MD have personally reviewed [...] personal performance and is accurate and complete. AT OPERATOR * John Paul Dickinson MD - 06/16/2023 2:28 PM CST Bed: AC03 Expected date: Expected time: Means of arrival: Comments: [place] when clean AT OPERATOR * Ca Givens - 06/16/2023 10:31 AM CST HELPED TO BATHROOM AT OPERATOR * Hannah Mecrer - 06/16/2023 9:52 AM CST Patient complaining of 9 out of 10 back pain at this time. AT OPERATOR * Antonia Arzola RN - 06/16/2023 8:03 AM CST Patient arrives to the ED with complaints of SOB that started yesterday. Patient also reports lowerback pain that is chronic. Patient stated she had a stimulator placed on her back and that made that pain worse. Patient deniesany chest pain. AT OPERATOR documented in this encounter Plan of Treatment Scheduled Orders Name Type Priority Associated Diagnoses Order Schedule REASSESSMENT PARAMETERS Respiratory Care Routine ONCE for 1 Occurrences starting 06/16/2023 until 06/16/2023 documented as of this encounter Procedures Procedure Name Priority Date/Time Associated Diagnosis Comments CARDIAC EKG ORDER 06/19/2023 1:3 8 PM BOBCAT OPERATOR GLUCOSE - POINT OF CARE Routine 06/17/2023 12:08 PM BOBCAT OPERATOR GLUCOSE - POINT OF CARE Routine 06/17/2023 8:00 AM BOBCAT OPERATOR GLUCOSE - POINT OF CARE Routine 06/16/2023 10:49 PM BOBCAT OPERATOR GLUCOSE - POINT OF CARE Routine 06/16/2023 8:45 PM BOBCAT OPERATOR TROPONIN-I HIGH SENSITIVE REFLEX 1HOUR Timed 06/16/2023 4:44 PM BOBCAT OPERATOR TROPONIN-I HIGH SENSITIVE BASELINE + 1HR STAT 06/16/2023 3:28 PM BOBCAT OPERATOR B-TYPE NATRIURETIC PEPTIDE STAT 06/16/2023 3:28 PM BOBCAT OPERATOR XR CHEST 1VW PORTABLE STAT 06/16/2023 3:17 PM BOBCAT OPERATOR Shortness of breath CBC W AUTO DIFFERENTIAL STAT 06/16/2023 8:48 AM BOBCAT OPERATOR COMPREHENSIVE METABOLIC PANEL STAT 06/16/2023 8:48 AM BOBCAT OPERATOR EKG 12-LEAD STAT 06/16/2023 8:33 AM BOBCAT OPERATOR Shortness of breath documented in this encounter Results * CARDIAC EKG ORDER (06/19/2023 1:38 PM BOBCAT OPERATOR) Narrative 06/19/2023 1:38 PM BOBCAT OPERATOR Ordered by an unspecified provider. Scanned Document CARDIAC SERVICES ORD ERABLES * (ABNORMAL) GLUCOSE - POINT OF CARE (06/17/2023 12:08 PM BOBCAT OPERATOR) [facility] Glucose WB/POC 187(H) 70 - 115 mg/dL 06/17/2023 12:13 PM BOBCAT OPERATOR [facility] Specimen Type Cap Fingerstick 2023 12:13 PM BOBCAT OPERATOR [facility] Blood BLOOD SPECIMEN / Unknown 06/17/2023 12:08 PM BOBCAT OPERATOR 06/17/2023 12:13 PM BOBCAT OPERATOR Luis Armando Saravia MD LAB - POINT OF CARE ORDERABLES [facility] [address] [place] [phone], [facility] [phone] * (ABNORMAL) GLUCOSE - POINT OF CARE (06/17/2023 8:00 AM BOBCAT OPERATOR) Glucose WB/POC 164(H) 70 - 115 mg/dL 06/17/2023 8:01 AM BOBCAT OPERATOR [facility] Specimen Type Cap Fingerstick 2023 8:01 AM BOBCAT OPERATOR [facility] Blood BLOOD SPECIMEN / Unknown 06/17/2023 8:00 AM BOBCAT OPERATOR 06/17/2023 8:01 AM BOBCAT OPERATOR Luis Armando Saravia MD LAB - POINT OF CARE ORDERABLES [address] [address], [place] [phone] * (ABNORMAL) GLUCOSE - POINT OF CARE (06/16/2023 10:49 PM BOBCAT OPERATOR) Glucose WB/POC 235(H) 70 - 115 mg/dL 06/16/2023 10:49 PM BOBCAT OPERATOR [facility] Specimen Type Cap Fingerstick 2023 10:49 PM BOBCAT OPERATOR [facility] Blood BLOOD SPECIMEN / Unknown 06/16/2023 10:49 PM BOBCAT OPERATOR 06/16/2023 10:49 PM BOBCAT OPERATOR Provider Unknown LAB - POINT OF CARE ORDERABLES Performing Organization Address City/[facility]/ZIP Co de Phone Number [address] [address], [place] [phone] * (ABNORMAL) GLUCOSE - POINT OF CARE (06/16/2023 8:45 PM BOBCAT OPERATOR) Glucose WB/POC 277(H) 70 - 115 mg/dL 06/16/2023 8:46 PM BOBCAT OPERATOR [facility] Specimen Type Cap Fingerstick 2023 8:46 PM BOBCAT OPERATOR [facility] Blood BLOOD SPECIMEN / Unknown 06/16/2023 8:45 PM BOBCAT OPERATOR 06/16/2023 8:46 PM BOBCAT OPERATOR Provider Unknown LAB - POINT OF CARE ORDERABLES [address] [address], [facility] [phone] * TROPONIN-I HIGH SENSITIVE REFLEX 1HOUR (06/16/2023 4:44 PM BOBCAT OPERATOR) [facility] Troponin I High Sensitive <3 <=14 ng/L 06/16/2023 5:28 PM BOBCAT OPERATOR [facility] Delta Troponin I HS 06/16/2023 5:28 PM BOBCAT OPERATOR [facility] Comment:Result exceeds linea rity range. A delta value is unable to be calculated. Blood BLOOD SPECIMEN / Unknown Venipuncture / Unknown 06/16/2023 4:44 PM BOBCAT OPERATOR 06/16/2023 4:50 PM BOBCAT OPERATOR Roger Snowden MD LAB - CHEMISTRY ANGEL SPEARS [facility] [address] [place] [address], [facility] [phone] * B-TYPE NATRIURETIC PEPTIDE (06/16/2023 3:28 PM BOBCAT OPERATOR) [facility] BNP 15 <100 pg/mL 06/16/2023 4:08 PM BOBCAT OPERATOR [facility] Comment: A decision [...] Unknown Venipuncture / Unknown 06/16/2023 3:28 PM BOBCAT OPERATOR 06/16/2023 3:37 PM BOBCAT OPERATOR Roger Snowden MD LAB - CHEMISTRY ANGEL SPEARS Performing Organization Address [facility] de Phone Number [address] [address], [place] [phone] * TROPONIN-I HIGH SENSITIVE BASELINE + 1HR (06/16/2023 3:28 PM BOBCAT OPERATOR) Troponin I High Sensitive <3 <=14 ng/L 06/16/2023 4:09 PM BOBCAT OPERATOR [facility] Blood BLOOD SPECIMEN / Unknown Venipuncture / Unknown 06/16/2023 3:28 PM BOBCAT OPERATOR 06/16/2023 3:37 PM BOBCAT OPERATOR Roger Snowden MD LAB - CHEMISTRY ANGEL SPEARS Performing Organization Address [facility] Co de Phone Number [address] [address], [place] [phone] * XR CHEST 1VW PORTABLE (06/16/2023 3:17 PM BOBCAT OPERATOR) Anatomical Region Laterality Modality Chest Radiographic Lizeth ging 06/16/2023 3:17 PM BOBCAT OPERATOR Narrative 06/16/2023 4:20 PM BOBCAT OPERATOR PROCEDURE: ??XR CHEST 1VW PORTABLE, DATE/TIME OF EXAM: ??06/16/2023 3:18 PM, LOCATION ??[facility] INDICATION: R06.02: Shortness of breath ADDITIONAL [...] thorax is intact. Report dictated by Ulises Snaford MD, (Box Blank Machine Feeder). Raquel Perez MD have personally reviewed and interpreted this examination/study. > Interpreting Provider: Raquel Cedillo MD on 06/16/2023 4:20 PM Procedure Note Raquel Cedillo MD - 06/16/2023 PROCEDURE: XR CHEST 1VW PORTABLE, DATE/TIME OF EXAM: 06/16/2023 3:18PM, LOCATION [facility] INDICATION: R06.02: Shortness of breath ADDITIONAL [...] intact. Report dictated by Ulises Sanford MD, (Box Blank Machine Feeder). Raquel Perez MD have personally reviewed and interpreted this examination/study. > Interpreting Provider: Raquel Cedillo MD on 06/16/2023 4:20 PM Roger Snowden MD DIAGNOSTIC IMAGING O RDERABLES * (ABNORMAL) COMPREHENSIVE METABOLIC PANEL (06/16/2023 8:48 AM BOBCAT OPERATOR) [facility] BUN 14 7 - 26 mg/dL 06/16/2023 9:24 AM BOBCAT OPERATOR [facility] Creatinine 0.63 0.56 - 0.96 mg/dL 06/16/2023 9:[address] [facility] Sodium 135(L) 136 - 145 mmol/L 06/16/2023 9:24 AM [facility] Potassium 3.7 3.5 - 4.5 mmol/L 06/16/2023 9:24 AM [facility] Chloride 103 98 - 107 mmol/L 06/16/2023 9:24 AM [facility] CO2 24 22 - 29 mmol/L 06/16/2023 9:24 AM [facility] Glucose 250(H) 70 - 115 mg/dL 06/16/2023 9:24 AM [facility] Calcium 9.9 8.4 - 10.2 mg/dL 06/16/2023 9:24 AM [facility] Protein Total 8.9(H) 6.0 - 8.3 g/dL 06/16/2023 9:24 AM [facility] Albumin 3.5 3.4 - 5.0 g/dL 06/16/2023 9:24 AM [facility] Bilirubin Total 0.6 0.2 - 1.2 mg/dL 06/16/2023 9:24 AM [facility] Alkaline Phosphatase 82 40 - 150 U/L 06/16/2023 9:24 AM [facility] ALT 18 5 - 55 U/L 06/16/2023 9:24 AM [facility] AST 17 5 - 34 U/L 06/16/2023 9:24 AM [facility] Anion Gap 8 6 - 16 06/16/2023 9:24 AM [facility] BUN/Creatinine Ratio 22 7 - 23 06/16/2023 9:24 AM [facility] Osmolality Calculated 289 275 - 295 mOsm/kg 06/16/2023 9:24 AM [facility] Albumin/Globulin Ratio 0.6(L) 1.1 - 2.3 06/16/2023 9:24 AM [facility] eGFR by CKD-EPI >90 >=90 mL/min/1.7 3 m2 06/16/2023 9:24 AM [facility] Blood BLOOD SPECIMEN / Unknown Venipuncture / Unknown 06/16/2023 8:48 AM BOBCAT OPERATOR 06/16/2023 8:53 AM BOBCAT OPERATOR Roger Snowden MD LAB - CHEMISTRY ANGEL SPEARS [facility] [address] [place] [address], [facility] [phone] * CBC W AUTO DIFFERENTIAL (06/16/2023 8:48 AM [facility]) WBC 8.4 4.0 - 10.7 x10E9/L 06/16/2023 9:04 AM [facility] RBC Count 4.88 3.90 - 5.20 x10E12/L 06/16/2023 9:04 AM [facility] Hemoglobin 14.1 11.9 - 15.8 g/dL 06/16/2023 9:04 AM [facility] Hematocrit 43.6 34.8 - 46.1 % 06/16/2023 9:04 AM [facility] MCV 89.3 80.0 - 98.0 fL 06/16/2023 9:04 AM [facility] MCH 28.9 26.7 - 33.6 pg 06/16/2023 9:04 AM [facility] MCHC 32.3 31.7 - 36.3 g/dL 06/16/2023 9:04 AM [facility] RDW-CV 13.5 11.3 - 14.8 % 06/16/2023 9:04 AM [facility] Platelet Count 292 150 - 420 x10E9/L 06/16/2023 9:04 AM [facility] MPV 9.6 7.8 - 11.4 fL 06/16/2023 9:04 AM [facility] Neutrophil % 64.9 41.0 - 74.0 % 06/16/2023 9:04 AM [facility] Lymphocyte % 25.7 17.0 - 47.0 % 06/16/2023 9:04 AM [facility] Monocyte % 5.7 3.0 - 11.0 % 06/16/2023 9:04 AM [facility] Eosinophil % 3.0 0.0 - 7.0 % 06/16/2023 9:04 AM [facility] Basophil % 0.5 0.0 - 1.6 % 06/16/2023 9:04 AM [facility] Immature Granulocytes % 0.2 0.0 - 1.0 % 06/16/2023 9:04 AM [facility] Neutrophil Absolute 5.47 1.60 - 7.50 x10E9/L 06/16/2023 9:04 AM [facility] Lymphocyte Absolute 2.16 1.00 - 4.40 x10E9/L 06/16/2023 9:04 AM [facility] Monocyte Absolute 0.48 0.15 - 1.00 x10E9/L 06/16/2023 9:04 AM [facility] Eosinophil Absolute 0.25 0.00 - 0.60 x10E9/L 06/16/2023 9:04 AM [facility] Basophil Absolute 0.04 0.00 - 0.13 x10E9/L 06/16/2023 9:04 AM [facility] Blood BLOOD SPECIMEN / Unknown Venipuncture / Unknown 06/16/2023 8:48 AM BOBCAT OPERATOR 06/16/2023 8:53 AM [facility] Roger Snowden MD LAB - HEMATOLOGY ORD ERABLES Performing Organization Address [facility]/State/ZIP Co de Phone Number [facility] [address] [place] [phone], [facility] [phone] * EKG 12-LEAD (06/16/2023 8:33 AM [facility]) Ventricular Rate 94 BPM SL MUSE Atrial Rate 94 BPM [facility] MUSE P-R Interval 144 ms [facility] MUSE QRS Duration ms 80 ms [facility] MUSE Q-T Interval ms 364 ms [facility] MUSE QTC Calculation (Bezet) 455 ms [facility] MUSE Calculated P Winfred 15 degrees [facility] MUSE Calculated R Winfred 2 degrees [facility] MUSE Calculated T Winfred 50 degrees [facility] MUSE Interpretation EKG NORMAL SINUS RHYTHM NONSPECIFIC T WAVE ABNORMALITY ABNORMAL ECG WHEN COMPARED WITH ECG OF 28-MAY-2023 16:24, NO SIGNIFICANT CHANGE WAS FOUND Confirmed by MAR ??DWAIN DURÁN ([id number]) on 06/24/2023 5:38:25 PM [facility] MUSE 06/16/2023 8:33 AM BOBCAT OPERATOR 06/24/2023 5:38 PM BOBCAT OPERATOR Roger Snowden MD ECG ORDERABLES Jeri SEQUEIRA [...] 8 hours. $ Given 06/17/2023 4:53 AM BOBCAT OPERATOR 3 mL $ Given 06/16/2023 10:09 PM BOBCAT OPERATOR 3 mL $ Given 06/16/2023 3:25 PM BOBCAT OPERATOR 3 mL acetaminophen (Tylenol) tablet 500 mg [...] the MAR. $ Given 06/17/2023 11:39 AM BOBCAT OPERATOR 500 mg $ Given 06/17/2023 5:49 AM BOBCAT OPERATOR 500 mg $ Given 06/17/2023 12:27 AM BOBCAT OPERATOR 500 mg bisacodyl (Dulcolax) suppository 10 mg 10 mg, Rectal, DAILY PRN, Constipation, Starting on Mon06/16/23 at 2159, Until 06/17/23 at 1406 cyclobenzaprine (Flexeril) tablet 10 mg 10 mg, Oral, NOW, 1 dose, On Mon06/16/23 at 1515 $ Given 06/16/2023 3:16 PM BOBCAT OPERATOR 10 mg dextrose 10 % IV bolus [...] Until Discontinued $ Given 06/17/2023 8:33 AM BOBCAT OPERATOR 25 mg glucagon (Glucagen) injection 1 mg [...] choices) NOTIFY PROVIDER OF HYPOGLYCEMIC EVENT. HYDROcodone-acetaminophen ([place]) 10-325 MG tablet 1 tablet 1 tablet, [...] the MAR. $ Given 06/17/2023 7:48 AM BOBCAT OPERATOR 1 tablet HYDROmorphone (Dilaudid) injection 0.5 mg [...] the MAR. $ Given 06/16/2023 6:30 PM BOBCAT OPERATOR 0.5 m g HYDROmorphone (Dilaudid) injection 0.6 [...] the MAR. $ Given 06/17/2023 4:52 AM BOBCAT OPERATOR 0.6 mg $ Given 06/17/2023 1:10 AM BOBCAT OPERATOR 0.6 mg $ Given 06/16/2023 9:56 PM BOBCAT OPERATOR 0.6 mg HYDROmorphone (Dilaudid) injection 0.6 mg [...] the MAR. $ Given 06/17/2023 11:39 AM BOBCAT OPERATOR 0.6 mg HYDROmorphone (Dilaudid) injection 1 mg [...] the MAR. $ Given 06/16/2023 3:25 PM BOBCAT OPERATOR 1 mg insulin aspart (NovoLOG) pen 0-12 [...] same time. $ Given 06/17/2023 12:14 PM BOBCAT OPERATOR 4 Units Abd Right Upper Quadrant $ Given 06/17/2023 8:33 AM BOBCAT OPERATOR 2 Units Le ft Arm insulin aspart [...] same time. $ Given 06/16/2023 10:50 PM BOBCAT OPERATOR 2 Units Right Arm insulin aspart (NovoLOG) pen 15 Units 15 Units, Subcutaneous, 3 TIMES DAILY WITH MEALS, First dose on 06/17/23 at 0800, Until Discontinued, Hold MEALTIME insulin if patient is NPO or eating less than 50% of meals. -OR- if carb intake for the meal is less than 30 grams. $ Given 06/17/2023 8:34 AM BOBCAT OPERATOR 15 Units Left Arm insulin glargine (Lantus) pen 25 Units 25 Units, Subcutaneous, EVERY MORNING, First dose (after last modification) on Mon06/17/23 at 0700, Until Discontinued, DO NOT HOLD even if patient is NPO Consider calling physician for dose reduction if patient is made NPO. . WASTE DISPOSAL INSTRUCTIONS: Black Bin Disposal required. $ Given 06/17/2023 7:37 AM BOBCAT OPERATOR 25 Units Abd Left Lower Quadrant lidocaine (Lidoderm) 5 % patch 1 patch 1 patch, Administer over 12 Hours, EVERY 24 HOURS, First dose on Mon06/16/23 at 2200, Until Discontinued, Apply to back pain and remove patch after a max of 12 hours of application within a 24 hour period. $ Applied 06/16/2023 10:09 PM BOBCAT OPERATOR 1 patch Back naloxone (Narcan) injection 0.4 [...] 5 mg/min $ Given 06/16/2023 5:39 PM BOBCAT OPERATOR 5 mg rivaroxaban (Xarelto) tablet 20 mg 20 mg, Oral, DAILY WITH FOOD, First dose on 06/17/23 at 0900, Until Discontinued, For tube administration, please refer to the MAR References links: Administration Dose of 15 mg or greater should be taken with food $ Given 06/17/2023 8:34 AM BOBCAT OPERATOR 20 mg rOPINIRole (Requip) tablet 5 mg 5 mg, Oral, AT BEDTIME, First dose on Mon06/16/23 at 2115, Until Discontinued $ Given 06/16/2023 9:06 PM BOBCAT OPERATOR 5 mg senna-docusate (Senokot-S) tablet 1 tablet 1 tablet, Oral, DAILY PRN, Constipation, Starting on Mon06/16/23 at 2159, Until 06/17/23 at 1406 tolterodine ER 24hr (Detrol LA) capsule 4 mg 4 mg, Oral, DAILY, First dose on 06/17/23 at 0900, Until Discontinued, Do not crush or chew. $ Given 06/17/2023 8:32 AM BOBCAT OPERATOR 4 mg documented in this encounter Active and Recently Administered Medications Times are shown in BOBCAT OPERATOR. Scheduled Medication Order 06/15/2023 06/16/2023 06/17/2023 0.9% [...] 0027 ($ Given - Provider: Albert Carrasco RN)0522 ($ Given - Provider: Albert Carrasco RN)1139 [...] choices) NOTIFY PROVIDER OF HYPOGLYCEMIC EVENT. HYDROcodone-acetaminophen ([place]) 10-325 MG tablet 1 tablet 1 tablet, [...] portion documented in this encounter Care Teams Fitting Room Operator Relationship Specialty Start Date End Date Justen Gale MD PCP - General 07/05/21 documented as of this encounter
--- OUTSIDE RECORDS SUMMARY | 2024-04-26 06:52 | XMS_ITS | Encounter Summary ---
Author Organization [facility] Address [address] [facility] [place] [address] Care Team Providers Care Manager Trust Name Role Phone Justen Gale MD Primary Care Provider [phone] Encounter Details Date Type Department Care Team (Late st Contact Info) Description 07/12/2023 Orders Only [facility] [address] [place] [address] Caroline Sultana RN Social History [...] medical care, and heating? Somewhat hard 05/16/2023 [facility] [place] of Occupat ional Health - Occupational Stress [...] in a senior living (including now)? No 05/16/2023 Sex and Gender [...] filedocumented in this encounter Care Teams Manager Trust Relationship Specialty Start Date End Date Justen Gale MD PCP - General 07/05/21 documented as of this encounter
--- OUTSIDE RECORDS SUMMARY | 2024-04-26 06:52 | XMS_ITS | Encounter Summary ---
Author Organization [facility] Address [address] [facility] [place] [address] Care Team Providers Care Business Taxes Specialist Name Role Phone Justen Gale MD Primary Care Provider [phone] Reason for Visit * Reason Comments Refill Request Encounter Details Date Type Department Care Team (Late st Contact Info) Description 07/12/2023 Refill [facility] [address] [place] [address] [address] [place] [phone] Opal Orellana, NEUROBIOLOGIST-NETSUITE DEVELOPER [address] [place] [phone] Refill Request Social History Tobacco Use Types [...] care, and heating? Somewhat hard 05/16/2023 [facility] [place] of Occupat ional Health - Occupational Stress [...] filedocumented in this encounter Care Teams Business Taxes Specialist Relationship Specialty Start Date End Date Justen Gale MD PCP - General 07/05/21 documented as of this encounter
--- OUTSIDE RECORDS SUMMARY | 2024-04-26 06:52 | XMS_ITS | Encounter Summary ---
Author Organization [facility] Address [address] [facility] [place] [address] Care Team Providers Care Institute Director Name Role Phone Justen Gale MD Primary Care Provider [phone] Reason for Visit * Reason Onset Date Comments Appointment 01/26/2024 Referral Encounter Details Date Type Department Care Team (Late st Contact Info) Description 01/26/2024 Telephone [facility] Orthoped[facility] [address] [place] [address], [place] [address] Maldonado Christianson MD [address] [place] [phone] Appointment (Referral ) Social History Tobacco [...] heating? Somewhat hard 05/16/2023 [facility] [place] of Occupat ional Health - Occupational Stress [...] on filedocumented in this encounter Care Teams Institute Director Relationship Specialty Start Date End Date Justen Gale MD PCP - General 07/05/21 documented as of this encounter
--- OUTSIDE RECORDS SUMMARY | 2024-04-26 06:52 | XMS_ITS | Encounter Summary ---
Author Organization [facility] Address [address] [facility] [place] [address] Care Team Providers Care Call Center Agent Name Role Phone Justen Gale MD [...] medical care, and heating? Somewhat hard 05/16/2023 [facility] [place] of Occupat ional Health - Occupational Stress [...] slept in a detention (including now)? No 05/16/2023 Sex and Gender [...] on filedocumented in this encounter Care Teams Call Center Agent Relationship Specialty Start Date End Date Justen Gale MD PCP - General 07/05/21 documented as of this encounter
--- OUTSIDE RECORDS SUMMARY | 2024-04-26 06:52 | XMS_ITS | Encounter Summary ---
Author Organization [facility] Address [address] [facility] [place] [address] Care Team Providers Care Pharmacy Intern Name Role Phone Justen Gale MD Primary Care Provider [phone] Encounter Details Date Type Department Care Team (Late st Contact Info) Description 03/08/2024 Orders Only [facility] [address] [place] [address] Caroline Sultana RN Social History [...] medical care, and heating? Somewhat hard 05/16/2023 [facility] [place] of Occupat ional Health - Occupational [...] on filedocumented in this encounter Care Teams Pharmacy Intern Relationship Specialty Start Date End Date Justen Gale MD PCP - General 07/05/21 documented as of this encounter
--- OUTSIDE RECORDS SUMMARY | 2024-04-26 06:53 | XMS_ITS | Encounter Summary ---
Author Organization [facility] Address [address] [facility] [place] [address] Care Team Providers Care Veterinary Physiologist Name Role Phone Justen Gale MD Primary Care Provider [phone] Encounter Details Date Type Department Care Team [...] and heating? Not hard at all 02/22/2023 [facility] [place] of Occupat ional Health - Occupational Stress [...] slept in a [facility] (including now)? No 02/22/2023 Sex and Gender [...] on filedocumented in this encounter Care Teams Veterinary Physiologist Relationship Specialty Start Date End Date Justen Gale MD PCP - General 07/05/21 documented as of this encounter
--- OUTSIDE RECORDS SUMMARY | 2024-04-26 06:53 | XMS_ITS | Encounter Summary ---
Author Organization [facility] Address [address] [facility] [place] [address] Care Team Providers Care Melt Down Furnace Operator Name Role Phone Justen Gale MD Primary Care Provider [phone] Reason for Visit * Reason Onset Date Comments Appointment 03/23/2023 Encounter Details Date Type Department Care Team (Late st Contact Info) Description 03/23/2023 Telephone [facility] Neuro[facility] [address] [place] [address], [place] [address] Angeline Avila, RN Appointment Social [...] and heating? Not hard at all 02/22/2023 [facility] [place] of Occupat ional Health - Occupational Stress [...] Angeline Avila RN - 03/23/2023 10:00 AM RIVER RAFTING GUIDE Left message on patient voicemail advising to f/u with Dr Gregg on 03/27 @1000 for a wound check. R RAFTING GUIDE documented in this encounter Plan of Treatment Not on file documented as of this encounter Visit Diagnoses Not on filedocumented in this encounter Care Teams Melt Down Furnace Operator Relationship Specialty Start Date End Date Justen Gale MD PCP - General 07/05/21 documented as of this encounter
--- OUTSIDE RECORDS SUMMARY | 2024-04-26 06:53 | XMS_ITS | Encounter Summary ---
Author Organization [facility] Address [address] [facility] [place] [address] Care Team Providers Care Protein Scientist Name Role Phone Justen Gale MD Primary Care Provider [phone] Encounter Details Date Type Department Care Team [...] heating? Not hard at all 02/22/2023 [facility] [place] of Occupat ional Health - Occupational Stress [...] on filedocumented in this encounter Care Teams Protein Scientist Relationship Specialty Start Date End Date Justen Gale MD PCP - General 07/05/21 documented as of this encounter
--- OUTSIDE RECORDS SUMMARY | 2024-04-26 06:53 | XMS_ITS | Encounter Summary ---
Author Organization [facility] Address [address] [facility] [place] [address] Care Team Providers Care Hat Finishing Materials Preparer Name Role Phone Justen Gale MD Primary Care Provider Reason for Visit * Reason Onset Date Comments DRAINAGE FROM INCISION 02/21/2023 Encounter Details Date Type Department Care Team (Late st Contact Info) Description 02/21/2023 Telephone [facility] [address] [place] [address], [place] [address] Angeline Avila, RN DRAINAGE FROM [...] and heating? Not hard at all 02/22/2023 [facility] [place] of Occupat ional Health - Occupational [...] in a senior care (including now)? No 02/22/2023 Sex and Gender [...] on filedocumented in this encounter Care Teams Hat Finishing Materials Preparer Relationship Specialty Start Date End Date Justen Gale MD PCP - General 07/05/21 documented as of this encounter
--- OUTSIDE RECORDS SUMMARY | 2024-04-26 06:53 | XMS_ITS | Encounter Summary ---
Author Organization [facility] Address [address] [facility] [address] Care Team Providers Care Supervisor Vacuum Metalizing Name Role Phone Justen Gale MD Primary Care Provider [phone] Encounter Details Date Type Department Care Team (Late st Contact Info) Description 03/06/2023 1:00 PM AVIATION WARFARE SYSTEMS OPERATOR Office Visit [facility] Neurosurgery [address] [place] [address] [address] [place] [phone] Maxi Gregg MD [address] [place] [address] Infection of spinal cord stimulator, [...] and heating? Not hard at all 02/22/2023 [facility] of Occupat ional Health - Occupational [...] slept in a fci (including now)? No 02/22/2023 Sex and Gender Information Value Date Recorded Sex Assigned at Not on file Gender Identity Not on file Sexual Orientation Not on file documented as of this encounter Last Filed Vital Signs Vital Sign Reading Time Taken Comments Blood Pressure 174/86 03/06/2023 12:52 PM AVIATION WARFARE SYSTEMS OPERATOR Pulse 99 03/06/2023 12:52 PM AVIATION WARFARE SYSTEMS OPERATOR Temperature 36.9 ??C (98.5 ??F) 03/06/2023 12:[address] Respiratory Rate - - Oxygen Saturation 99% 03/06/2023 12:52 PM AVIATION WARFARE SYSTEMS OPERATOR Inhaled Oxygen Concentration - - Weight [...] Angeline Avila RN - 03/06/2023 1:07 PM AVIATION WARFARE SYSTEMS OPERATOR Follow up with Dr. Gregg in 4-6 weeks Obtain labs prior to appointment For any questions please contact Angeline at [phone] For appointments call Centralized Scheduling at [phone] TION WARFARE SYSTEMS OPERATOR documented in this encounter Progress Notes * [...] No Stress: No Stress Concern Present (02/22/2023) [facility] [place] of Occupational Health - Occupational Stress Questionnaire [...] (one) capsule by mouth once daily HYDROcodone-acetaminophen ([place]) 7.5-325 MG tablet Take 1 (one) tablet by mouth every 6 hours as needed for Pain hydrOXYzine HCl ([place]arax) 10 MG tablet Take 1 (one) tablet by mouth every 6 hours as needed (anxiety) insulin pen needle (B-D ULTRAFINE III SHORT PEN) 31G X 8 MM needle 4 times daily Lancets (WindowfarmsTOUCH DELICA PLUS 33G EXTRA FINE LANCET) USE [...] care of this patient. MD AMITA Varghese/macarena .[id number] .[id number] Doc ID: [id number] Voice Job ID: [id number] TION WARFARE SYSTEMS OPERATOR documented in this encounter Plan of [...] Primary documented in this encounter Care Teams Supervisor Vacuum Metalizing Relationship Specialty Start Date End Date Justen Gale MD PCP - General 07/05/21 documented as of this encounter
--- OUTSIDE RECORDS SUMMARY | 2024-04-26 06:53 | XMS_ITS | Encounter Summary ---
Author Organization [facility] Address [address] [facility] [place] [address] Care Team Providers Care Dye Reel Operator Helper Name Role Phone Justen Gale MD Primary Care Provider [phone] Reason for Visit * Reason Comments Transitional Care Encounter Details Date Type Department Care Team (Late st Contact Info) Description 03/24/2023 Transitional Care Transitional Care at [address] [address] Jane Salvador, collections analyst Social History Tobacco Use Types Packs/Day Years [...] and heating? Not hard at all 02/22/2023 [facility] [place] of Occupat ional Health - Occupational Stress [...] telephone: Patient with recent IP discharge from [facility] on 03/23/23. This RN contacted Karly Marques by telephone ([phone]) to complete 48 hour post-discharge follow-up contact [...] time. Patient was encouraged to call this advertising writer with questions, concerns, barriers to care, and/or additional resources if needed. Patient verbalized understanding and agreement with plan. This RN will continueto provide post-discharge monitoring until patient completes [facility] follow up. Call Duration: 5 min Jane Salvador RN, BSN Lumber Tallier, [facility] Office: [phone] 03/24/2023 CHASER documented in this encounter Plan of Treatment Not on file documented as of this encounter Visit Diagnoses Not on filedocumented in this encounter Care Teams Dye Reel Operator Helper Relationship Specialty Start Date End Date Justen Gale MD PCP - General 07/05/21 documented as of this encounter
--- OUTSIDE RECORDS SUMMARY | 2024-04-26 06:53 | XMS_ITS | Encounter Summary ---
Author Organization [facility] Address [address] [place] [address] Care Team Providers Care Optimization Manager Name Role Phone Justen Gale MD Primary Care Provider [phone] Reason for Visit * Reason Comments Pain [...] Expiration Date Visits Re quested Visits Authorized [id number] 1 1 Encounter Details Date Type Department Care Team (Latest Contact Info) Description 04/18/2023 1:06 AM HARNESS CLEANER - 04/20/2023 2:30 PM [facility] Hospital Encounter HC 2 ORTHO/NEW VIS [address] [place] [address] Lalit Matthew DO [address] [facility] [address] [place] [address] Ajay Barrera MD [address] [place] [id number] Mary Velasquez MD [address] [address] [place] B[place] [address] [facility] [facility] [address] [place] [address] [place] [address] [facility] [address] [place] [address] Emergency Medicine Discharge Disposition: Home or [...] and heating? Not hard at all 02/22/2023 [facility] [place] [facility] - Occupational Stress [...] in a senior living (including now)? No 02/22/2023 Sex and Gender Information Value Date Recorded Sex Assigned at Not on file Gender Identity Not on file Sexual Orientation Not on file documented as of this encounter Last Filed Vital Signs Vital Sign Reading Time Taken Comments Blood Pressure 144/84 04/20/2023 11:43 AM HARNESS CLEANER Pulse 70 04/20/2023 11:43 AM HARNESS CLEANER Temperature 36.8 ??C (98.2 ??F) 04/20/2023 1 1:43 AM HARNESS CLEANER Respiratory Rate 18 04/20/2023 11:4 3 AM HARNESS CLEANER Oxygen Saturation 92% 04/20/2023 11: 43 AM HARNESS CLEANER Inhaled Oxygen Concentration - - Weight 126.4 kg (278 lb 10.6 oz) 04/19/2023 3:56 AM HARNESS CLEANER Height 154.9 cm (5' 0.98 ) 04/18/2023 1 0:00 AM HARNESS CLEANER Body Mass Index 52.68 04/18/2023 10:00 AM HARNESS CLEANER documented in this encounter Functional Status Functional [...] GERD, DM and LUL, who presented to [facility] ED on 04/17/23 w/ c/o acute on [...] 4 Grams (4000mg) / 24 hours. Mary Velasuqez MD lidocaine 5 % patch Commonly known [...] HYDROcodone-acetaminophen 10-325 MG tablet Commonly known as: Provo Take 1 (one) tablet by mouth every [...] hospitalized Your discharge diagnosis is: Back pain [441294] Follow up with Primary Care Provider (PCP) [...] patient and or POA/family. Mary Velasquez MD ESS CLEANER documented in this encounter Medications at Time [...] mouth once daily 07/17/2022 05/19/2023 HYDROcodone-acetamin ophen (Provo) 10-325 MG tablet Take 1 (one) tablet [...] - continue pain regimen with home dose Provo 10 q.6 p.r.n. for severe pain, p.r.n. [...] a true interpretation of the dictation given. ESS CLEANER * Neha Castillo, PT - 04/19/2023 9:25 [...] Limits Bed Mobility: Supine to Sit: Complete [place] Transfers: Sit to Stand: Complete [place] Stand to Sit: Complete [place] Mobility: Distance Ambulated: 120 FEET Ambulation: Assistive Device: Walker-2 Wheeled Ambulation: Level of Assistance: Modified [place] ASSESSMENT: Patient seen for PT and OT [...] as the discharge summary. Neha, PT x [phone] ESS CLEANER * Dat Ames, OT - 04/19/2023 9:25 [...] - Right Upper Extremity: Within Functional Limits Bulk Plant Agent Strength: Bulk Plant Agent Strength - Right Upper Extremity: WFL LUE Assessment: AROM - Left Upper Extremity: Within Functional Limits Strength - Left Upper Extremity: Within Functional Limits Bulk Plant Agent Strength: Bulk Plant Agent Strength - Left Upper Extremity: WFL: Basic ADL's: Based on observation and clinical judgement Feeding: Complete [place] Oral Facial Hygiene: Modified [place] Bathing: Minimal Assistance Upper Body Dressing: Modified [place] Lower Body Dressing: Modified [place] (slip on shoes) Toileting: Modified [place] Functional Mobility: Bed Mobility: Supine to Sit: Complete [place] Sit to Supine: Activity Does Not Occur (Pt sitting EOB at end of session) Transfers: Sit to Stand: Modified [place] Stand to Sit: Modified [place] Mobility: Distance Ambulated: (Functional mobility in room and chavez to simulate distances required to access bedroom, bathroom, and kitchen in home) Ambulation: Assistive Device: Walker-2 Wheeled Ambulation: Level of Assistance: Modified [place] Oxygen Therapy: $ O2 DEVICE: Room Air [...] the discharge summary. LE Daugherty, OTR/L [phone] ESS CLEANER * Candy Orta RCP - 04/19/2023 2:11 [...] pt. Candy Orta RCP 04/19/2023 2:16 AM ESS CLEANER * Candy Orta RCP - 04/19/2023 1:53 AM CST @0147--RT placed call to ascom #[phone] (internal med) for non-invasive cpap - modification [...] very very well. RT is awaiting MD @#[phone] to call back when she is avail & RT has made RN & CSN aware of this as well. Order requires modification per policy/procedure. RT will continue to monitor pt. Candy Orta RCP 04/19/2023 1:56 AM ESS CLEANER * Iman Lee, CHEVY/LD - 04/18/2023 1:36 [...] order for MNT (Medical Nutrition Therapy) (Ambulatory [id number] in [facility]). MNT is a covered Medicare benefit for diabetes and renal disease. Other insurance coverage varies, patients should check with their insurance providers to verify coverage. Isha Spicer RD/SARA 04/18/2023 1:36 PM Ascom [phone] ESS CLEANER * Al Pedro RN - 04/18/2023 10:20 AM CST Problem: Pain/Discomfort Goal: Patient exhibits reduced pain/discomfort as evidenced by pain scores Outcome: Progressing Problem: Pain/Discomfort Goal: Patient uses pharmacological and non-pharmacological pain management strategies. Outcome: Progressing Problem: Pain/Discomfort Goal: Patient verbalizes acceptable level of pain relief and ability to engage in desired activity. Outcome: Progressing ESS CLEANER * Mariely Arellano RN - 04/18/2023 7:29 [...] steps to enter, resides with daughter, receives sort line worker services through [facility] and spouse hx/o [...] Requires Assistance With: Mobility;Housekeeping;Shopping;Meal Preparation;Hygiene Preferred Pharmacy: [id number] - [address] [place] [address] [address] [place] [address] READMISSION RISK SCORE is N/A at 4:33 PM 04/18/2023. Met with patient Family Support (name and phone): Extended Emergency Contact Information Primary Emergency Contact: Jimmie Marques [address]: [address] [place] [address] [place] [address] Relation: Spouse Secondary Emergency Contact: Yunior Velez [place] Relation: Daughter Patient or in home sales representative requests care coordination reach out [...] pt. requires but does not have.: None Candy Dipper Hand Referral: No Will continue to follow. For any questions or needs please contact: Marine Pilot Name/Phone number: Mariely Arellano RN, BSN. MSN, CM /[phone] ESS CLEANER documented in this encounter H&P Notes * [...] Medical History: Diagnosis Date ??? Breast cancer ([facility]) ??? Chest pain ??? DVT (deep venous thrombosis) ([facility]) ??? GERD (gastroesophageal reflux disease) ??? LUL (obstructive sleep apnea) w cpap ??? Other pulmonary embolism without acute cor pulmonale ([facility]) ??? rls ??? Type 2 diabetes mellitus without complications ([facility]) Past Surgical History: Procedure Laterality Date ??? [...] capsule by mouth once daily ??? HYDROcodone-acetaminophen (Provo) 10-325 MG tablet Take 1 (one) tablet [...] - continue pain regimen with home dose Provo 10 q.6 p.r.n. for severe pain, p.r.n. [...] attending. Darvin Parekh MD PGY-2 Internal Medicine [facility] ESS CLEANER Associated attestation - Mary Velasquez MD - 04/18/2023 7:21 PM HARNESS CLEANER I have discussed the case with the [...] GERD, DM and LUL, who presented to [facility] ED on 04/17/23 w/ c/o acute on [...] with PT. She reports the stimulator rep (Penana) made adjustments to her device today. Past Medical History: Diagnosis Date ??? Breast cancer ([facility]) ??? Chest pain ??? DVT (deep venous thrombosis) ([facility]) ??? GERD (gastroesophageal reflux disease) ??? LUL (obstructive sleep apnea) w cpap ??? Other pulmonary embolism without acute cor pulmonale ([facility]) ??? rls ??? Type 2 diabetes mellitus without complications ([facility]) Past Surgical History: Procedure Laterality Date ??? [...] (one) capsule by mouth once daily HYDROcodone-acetaminophen (Provo) 10-325 MG tablet Take 1 (one) tablet [...] hydroCHLOROthiazide (Hydrodiuril) tablet 12.5 mg ??? HYDROcodone-acetaminophen (Provo) 10-325 MG tablet 1 tablet ??? hydrOXYzine [...] Dr. Gregg in 02/13) who presented to [facility] ED on 04/17/23 w/ c/o acute on [...] without evidence of infection. The stimulator rep (Penana) made adjustments to her device today. Given [...] be discussed with attending, Dr. Marysol Banks, MANAGER COMMUNITY OUTREACH-FURNITURE LUMBER PRODUCTION WORKER 04/19/2023 1:57 PM Ascom Pager ESS CLEANER documented in this encounter ED Notes * Jabari Vega RN - 04/18/2023 8:28 AM CST Report given to NURIS Melendez . ESS CLEANER * Bubba Brice RN - 04/18/2023 3:30 AM CST This patient came in to the ED, after talking to her neurologist, for pain control. She recently had a nerve stimulator inserted, but her pain has been uncontrollable over the past few days. ESS CLEANER * Leo Bourne RN - 04/18/2023 2:00 AM CST Bed: 37 Expected date: Expected time: Means of arrival: Comments: Shelli ESS CLEANER * Lalit Matthew DO - 04/18/2023 12:42 AM CST ED Events Date/Time Event User Comments 04/17/232026 First Provider Evaluation LALIT MATTHEW -- Karly Montero Shelli [id number] [facility] EMERGENCY DEPARTMENT History Chief Complaint Patient [...] Medical History: Diagnosis Date ??? Breast cancer ([facility]) ??? Chest pain ??? DVT (deep venous thrombosis) ([facility]) ??? GERD (gastroesophageal reflux disease) ??? LUL (obstructive sleep apnea) w cpap ??? Other pulmonary embolism without acute cor pulmonale ([facility]) ??? rls ??? Type 2 diabetes mellitus without complications ([facility]) Past Surgical History: Procedure Laterality Date ??? [...] No Stress: No Stress Concern Present (02/22/2023) [place] [facility] - Occupational Stress Questionnaire [...] capsule by mouth once daily ??? HYDROcodone-acetaminophen (Provo) 7.5-325 MG tablet Take 1 (one) tablet [...] low back pain without sciatica Morbid obesity ([facility]) MDM MDM: Patient presents to the emergency [...] with voice recognition software. Occasional wrong-word or 'pidko-g-[id number]' substitutions may have occurred due to the inherent limitations of voice recognition software. Orders Placed This Encounter ??? CBC W AUTO DIFFERENTIAL ??? COMPREHENSIVE METABOLIC PANEL ??? C-REACTIVE PROTEIN ??? ERYTHROCYTE SEDIMENTATION RATE ??? AND Linked Order Group ??? 0.9% NaCl injection 3 mL ??? 0.9% NaCl injection 1-10 mL ??? morphine injection 4 mg ??? ondansetron (Zofran) injection 4 mg ESS CLEANER * Patricia Scott RN - 04/17/2023 8:20 [...] 8 weeks with a 20lb weight loss. ESS CLEANER documented in this encounter Plan of Treatment Scheduled Orders Name Type Priority Associated Diagnoses Order Schedule REASSESSMENT PARAMETERS Respiratory Care Routine ONCE for 1 Occurrences starting 04/18/2023 until 04/18/2023 documented as of this encounter Procedures Procedure Name Priority Date/Time Associated Diagnosis Comments GLUCOSE - POINT OF CARE Routine 04/20/2023 11:47 AM HARNESS CLEANER GLUCOSE - POINT OF CARE Routine 04/20/2023 7:47 AM HARNESS CLEANER GLUCOSE - POINT OF CARE Routine 04/19/2023 8:26 PM HARNESS CLEANER GLUCOSE - POINT OF CARE Routine 04/19/2023 3:53 PM HARNESS CLEANER URINE MICROSCOPIC ONLY REFLEX TO CULTURE Routine 04/19/2023 3:13 PM HARNESS CLEANER URINALYSIS REFLEX MICROSCOPIC REFLEX CULTURE Routine 04/19/2023 3:13 PM HARNESS CLEANER CULTURE URINE Routine 04/19/2023 3:13 PM HARNESS CLEANER GLUCOSE - POINT OF CARE Routine 04/19/2023 11:35 AM HARNESS CLEANER GLUCOSE - POINT OF CARE Routine 04/19/2023 7:57 AM HARNESS CLEANER CBC W/O DIFFERENTIAL Routine 04/19/2023 2:52 AM HARNESS CLEANER Chronic bilateral low back pain, unspecified whether sciatica present COMPREHENSIVE METABOLIC PANEL Routine 04/19/2023 2:52 AM HARNESS CLEANER Chronic bilateral low back pain, unspecified whether sciatica present GLUCOSE - POINT OF CARE Routine 04/18/2023 9:21 PM HARNESS CLEANER GLUCOSE - POINT OF CARE Routine 04/18/2023 3:54 PM HARNESS CLEANER GLUCOSE - POINT OF CARE Routine 04/18/2023 11:52 AM HARNESS CLEANER OT EVAL AND TREAT Routine 04/18/2023 11: 12 AM HARNESS CLEANER PT EVAL AND TREAT Routine 04/18/2023 11: 12 AM HARNESS CLEANER C-REACTIVE PROTEIN STAT 04/17/2023 8: 59 PM HARNESS CLEANER ERYTHROCYTE SEDIMENTATION RATE STAT 04/17/2023 8:59 PM HARNESS CLEANER CBC W AUTO DIFFERENTIAL STAT 04/17/2023 8:59 PM HARNESS CLEANER COMPREHENSIVE METABOLIC PANEL STAT 04/17/2023 8:59 PM HARNESS CLEANER documented in this encounter Results * (ABNORMAL) GLUCOSE - POINT OF CARE (04/20/2023 11:47 AM HARNESS CLEANER) Glucose WB/POC 269(H) 70 - 106 mg/dL 04/20/2023 11:52 AM HARNESS CLEANER [facility] Specimen Type Cap Fingerstick 2022 11:52 AM HARNESS CLEANER [facility] Blood BLOOD SPECIMEN / Unknown 04/20/2023 11:47 AM HARNESS CLEANER 04/20/2023 11:52 AM HARNESS CLEANER Mary Velasquez MD LAB - POINT OF CARE ORDERABLES [facility] [address] [place] [id number] * (ABNORMAL) GLUCOSE - POINT OF CARE (04/20/2023 7:47 AM HARNESS CLEANER) Glucose WB/POC 162(H) 70 - 106 mg/dL 04/20/2023 7:53 AM HARNESS CLEANER [facility] Specimen Type Cap Fingerstick 2022 7:53 AM HARNESS CLEANER [facility] Blood BLOOD SPECIMEN / Unknown 04/20/2023 7:47 AM HARNESS CLEANER 04/20/2023 7:53 AM HARNESS CLEANER Mary Velasquez MD LAB - POINT OF CARE ORDERABLES [facility] [address] [place] [phone] * (ABNORMAL) GLUCOSE - POINT OF CARE (04/19/2023 8:26 PM HARNESS CLEANER) Glucose WB/POC 161(H) 70 - 106 mg/dL 04/19/2023 8:35 PM HARNESS CLEANER [facility] Specimen Type Cap Fingerstick 2022 8:35 PM HARNESS CLEANER [facility] Blood BLOOD SPECIMEN / Unknown 04/19/2023 8:26 PM HARNESS CLEANER 04/19/2023 8:35 PM HARNESS CLEANER Mary Velasquez MD LAB - POINT OF CARE ORDERABLES [facility] [address] [place] [phone] * (ABNORMAL) GLUCOSE - POINT OF CARE (04/19/2023 3:53 PM HARNESS CLEANER) Glucose WB/POC 313(H) 70 - 106 mg/dL 04/19/2023 4:03 PM HARNESS CLEANER [facility] Specimen Type Cap Fingerstick 2022 4:03 PM HARNESS CLEANER [facility] Blood BLOOD SPECIMEN / Unknown 04/19/2023 3:53 PM HARNESS CLEANER 04/19/2023 4:03 PM HARNESS CLEANER Mary Velasquez MD LAB - POINT OF CARE ORDERABLES Performing Organization Address City/[facility]/ZIP Co de Phone Number [facility] [address] [place] [phone] * (ABNORMAL) CULTURE URINE (04/19/2023 3:13 PM HARNESS CLEANER) Culture Urine 50,000-100,000 CFU/mL Escherichia coli(A) TERRANCE 04/21/2023 4:59 AM HARNESS CLEANER [facility] Culture Urine 10,000-50,000 CFU/mL urogenital evelio TERRANCE 04/21/2023 4:59 AM HARNESS CLEANER [facility] Urine URINE SPECIMEN OBTAINED BY CLEAN CATCH PROCEDURE / Unknown Collection / Unknown 04/19/2023 3:13 PM HARNESS CLEANER 04/19/2023 3:26 PM HARNESS CLEANER Narrative [facility] - 04/21/2023 4:59 AM HARNESS CLEANER Organism Antibiotic Method Susceptibility Escherichia coli Amikacin [...] Velasquez MD LAB - MICROBIOLOGY O RDERABLES [facility] [address] [place] [address], [facility] [phone] * (ABNORMAL) URINE MICROSCOPIC ONLY REFLEX TO CULTURE (04/19/2023 3:13 PM HARNESS CLEANER) Reflex Status Culture to follow 04/19/2023 3:33 PM HARNESS CLEANER [facility] RBC UA 0-2 0 - 5 # /hpf 04/19/2023 3:33 PM HARNESS CLEANER [facility] WBC UA 6-10(A) 0 - 5 # /hpf 04/19/2023 3:33 PM HARNESS CLEANER [facility] Bacteria UA Trace(A) None Seen 04/19/2023 3:33 PM HARNESS CLEANER [facility] Squamous Epithelial Cells 0-2 0 - 5 /hpf 04/19/2023 3:33 PM HARNESS CLEANER [facility] Mucus UA 1+ /LPF 04/19/2023 3:33 PM HARNESS CLEANER [facility] Hyaline Casts 0-2 0 - 2 /LPF 04/19/2023 3:33 PM HARNESS CLEANER [facility] Urine URINE SPECIMEN OBTAINED BY CLEAN CATCH PROCEDURE / Unknown Collection / Unknown 04/19/2023 3:13 PM HARNESS CLEANER 04/19/2023 3:26 PM HARNESS CLEANER [facility] - 04/19/2023 3:33 PM HARNESS CLEANER Mary Velasquez MD LAB - URINALYSIS ORD ERABLES [facility] [address] [place] [address] * (ABNORMAL) URINALYSIS REFLEX MICROSCOPIC REFLEX CULTURE (04/19/2023 3:13 PM HARNESS CLEANER) Color UA Straw Straw, Yellow 04/19/2023 3:32 PM HARNESS CLEANER [facility] Clarity UA Clear Clear 04/19/2023 3:32 PM HARNESS CLEANER [facility] Glucose UA 1+(A) Negative 04/19/2023 3:32 PM HARNESS CLEANER [facility] Bilirubin UA Negative Negative 04/19/2023 3:32 PM HARNESS CLEANER [facility] Ketone UA Negative Negative 04/19/2023 3:32 PM HARNESS CLEANER [facility] Specific [place] UA 1.012 1.005 - 1.030 04/19/2023 3:32 PM HARNESS CLEANER [facility] Blood UA 1+(A) Negative 04/19/2023 3:32 PM HARNESS CLEANER [facility] pH UA 5.0 5.0 - 8.0 pH 04/19/2023 3:32 PM HARNESS CLEANER [facility] Protein UA Negative Negative 04/19/2023 3:32 PM HARNESS CLEANER [facility] Urobilinogen UA Negative Negative mg/dL 04/19/2023 3:32 PM HARNESS CLEANER [facility] Nitrite UA Negative Negative 04/19/2023 3:32 PM HARNESS CLEANER [facility] Leukocyte UA Trace(A) Negative 04/19/2023 3:32 PM HARNESS CLEANER [facility] Urine Microscopy Urine microscopy to follow 04/19/2023 3:32 PM HARNESS CLEANER [facility] Reflex Status Culture to follow 04/19/2023 3:32 PM HARNESS CLEANER [facility] Urine URINE SPECIMEN OBTAINED BY CLEAN CATCH PROCEDURE / Unknown Collection / Unknown 04/19/2023 3:13 PM HARNESS CLEANER 04/19/2023 3:26 PM HARNESS CLEANER Narrative [facility] - 04/19/2023 3:32 PM HARNESS CLEANER aMry Velasquez MD LAB - URINALYSIS ORD ERABLES Performing Organization Address City/[facility] Co de Phone Number [facility] [address] [place] [phone] * (ABNORMAL) GLUCOSE - POINT OF CARE (04/19/2023 11:35 AM HARNESS CLEANER) Glucose WB/POC 248(H) 70 - 106 mg/dL 04/19/2023 11:45 AM HARNESS CLEANER [facility] Specimen Type Cap Fingerstick 2022 11:45 AM HARNESS CLEANER [facility] Blood BLOOD SPECIMEN / Unknown 04/19/2023 11:35 AM HARNESS CLEANER 04/19/2023 11:45 AM HARNESS CLEANER Mary Velasquez MD LAB - POINT OF CARE ORDERABLES Performing Organization Address City/[facility]/ZIP Co de Phone Number [facility] [address] [place] [address] [phone] * (ABNORMAL) GLUCOSE - POINT OF CARE (04/19/2023 7:57 AM HARNESS CLEANER) Glucose WB/POC 201(H) 70 - 106 mg/dL 04/19/2023 8:07 AM HARNESS CLEANER [facility] Specimen Type Cap Fingerstick 2022 8:07 AM HARNESS CLEANER [facility] Blood BLOOD SPECIMEN / Unknown 04/19/2023 7:57 AM HARNESS CLEANER 04/19/2023 8:07 AM HARNESS CLEANER Mary Velasquez MD LAB - POINT OF CARE ORDERABLES [facility] [address] [place], [place] [phone] * (ABNORMAL) CBC W/O DIFFERENTIAL (04/19/2023 2:52 AM HARNESS CLEANER) WBC 13.5(H) 4.0 - 10.7 x10E9/L 04/19/2023 4:03 AM [facility] RBC Count 4.01 3.90 - 5.20 x10E12/L 04/19/2023 4:03 AM [facility] Hemoglobin 11.5(L) 11.9 - 15.8 g/dL 04/19/2023 4:03 AM [facility] Hematocrit 36.7 34.8 - 46.1 % 04/19/2023 4:03 AM [facility] MCV 91.5 80.0 - 98.0 fL 04/19/2023 4:03 AM [facility] MCH 28.7 26.7 - 33.6 pg 04/19/2023 4:03 AM [facility] MCHC 31.3(L) 31.7 - 36.3 g/dL 04/19/2023 4:03 AM [facility] RDW-CV 13.4 11.3 - 14.8 % 04/19/2023 4:03 AM [facility] Platelet Count 300 150 - 420 x10E9/L 04/19/2023 4:03 AM [facility] MPV 10.4 7.8 - 11.4 fL 04/19/2023 4:03 AM [facility] Blood BLOOD SPECIMEN / Unknown Lab Venipuncture / Unknown 04/19/2023 2:52 AM HARNESS CLEANER 04/19/2023 3:39 AM HARNESS CLEANER Mary Velasquez MD LAB - HEMATOLOGY ORD ERABLES [facility] [address] [place], [place] [phone] * (ABNORMAL) COMPREHENSIVE METABOLIC PANEL (04/19/2023 2:52 AM [facility]) Glucose 231(H) 70 - 105 mg/dL 04/19/2023 4:21 AM [facility] Sodium 136 136 - 145 mmol/L 04/19/2023 4:21 AM [facility] Potassium 4.2 3.5 - 5.1 mmol/L 04/19/2023 4:21 AM [facility] Chloride 100 98 - 107 mmol/L 04/19/2023 4:21 AM [facility] CO2 26 22 - 29 mmol/L 04/19/2023 4:21 AM [facility] Calcium 9.2 8.4 - 10.4 mg/dL 04/19/2023 4:21 AM [facility] Anion Gap 10 6 - 16 mmol/L 04/19/2023 4:21 AM [facility] BUN 25 7 - 26 mg/dL 04/19/2023 4:21 AM [facility] Creatinine 0.86 0.57 - 1.11 mg/dL 04/19/2023 4:21 AM [facility] Alkaline Phosphatase 63 40 - 150 U/L 04/19/2023 4:21 AM [facility] ALT 13 0 - 55 U/L 04/19/2023 4:21 AM [facility] AST 12 5 - 34 U/L 04/19/2023 4:21 AM [facility] Protein Total 7.5 6.4 - 8.3 gm/dL 04/19/2023 4:21 AM [facility] Albumin 3.0(L) 3.4 - 5.0 gm/dL 04/19/2023 4:21 AM [facility] Bilirubin Total 0.6 0.2 - 1.2 mg/dL 04/19/2023 4:21 AM [facility] eGFR by CKD-EPI 74(L) >=90 mL/min/1.7 3 m2 04/19/2023 4:21 AM [facility] Blood BLOOD SPECIMEN / Unknown Lab Venipuncture / Unknown 04/19/2023 2:52 AM [facility] 04/19/2023 3:39 AM [facility] Mary Velasquez MD LAB - CHEMISTRY [facility]olas [facility] [facility] [address] [place] [address] * (ABNORMAL) GLUCOSE - POINT OF CARE (04/18/2023 9:21 PM HARNESS CLEANER) Glucose WB/POC 276(H) 70 - 106 mg/dL 04/18/2023 9:33 PM HARNESS CLEANER [facility] Specimen Type Cap Fingerstick 2022 9:33 PM HARNESS CLEANER [facility] Blood BLOOD SPECIMEN / Unknown 04/18/2023 9:21 PM HARNESS CLEANER 04/18/2023 9:33 PM HARNESS CLEANER Mary Velasquez MD LAB - POINT OF CARE ORDERABLES Performing Organization Address [facility] Co de Phone Number [facility] [address] [place] [address] [phone] * (ABNORMAL) GLUCOSE - POINT OF CARE (04/18/2023 3:54 PM HARNESS CLEANER) Glucose WB/POC 299(H) 70 - 106 mg/dL 04/18/2023 4:00 PM HARNESS CLEANER [facility] Specimen Type Cap Fingerstick 2022 4:00 PM HARNESS CLEANER [facility] Blood BLOOD SPECIMEN / Unknown 04/18/2023 3:54 PM HARNESS CLEANER 04/18/2023 4:00 PM HARNESS CLEANER Mary Velasquez MD LAB - POINT OF CARE ORDERABLES Performing Organization Address [facility]/ZIP Co de Phone Number [facility] [address] [place] [phone] * (ABNORMAL) GLUCOSE - POINT OF CARE (04/18/2023 11:52 AM HARNESS CLEANER) Glucose WB/POC 371(H) 70 - 106 mg/dL 04/18/2023 12:00 PM HARNESS CLEANER [facility] Specimen Type Arterial 04/18/2023 12:00 PM HARNESS CLEANER [facility] Blood BLOOD SPECIMEN / Unknown 04/18/2023 11:52 AM HARNESS CLEANER 04/18/2023 12:00 PM HARNESS CLEANER Mary Velasquez MD LAB - POINT OF CARE ORDERABLES Performing Organization Address [facility]/ZIP Co de Phone Number [facility] [address] [place] [phone] * (ABNORMAL) ERYTHROCYTE SEDIMENTATION RATE (04/17/2023 8:59 PM HARNESS CLEANER) Erythrocyte Sedimentation Rate Automated 82(H) 0 - 30 MM/HR 04/17/2023 9:23 PM HARNESS CLEANER [facility] Blood BLOOD SPECIMEN / Unknown Venipuncture / Unknown 04/17/2023 8:59 PM HARNESS CLEANER 04/17/2023 8:59 PM HARNESS CLEANER Lalit Matthew DO LAB - HEMATOLOGY ORD ERABLES Performing Organization Address [facility] Co de Phone Number [facility] [address] [place] [phone] * (ABNORMAL) C-REACTIVE PROTEIN (04/17/2023 8:59 PM HARNESS CLEANER) C-Reactive Protein 2.98(H) <=0.50 mg/dL 04/17/2023 9:15 PM HARNESS CLEANER [facility] Blood BLOOD SPECIMEN / Unknown Venipuncture / Unknown 04/17/2023 8:59 PM HARNESS CLEANER 04/17/2023 8:59 PM HARNESS CLEANER Lalit Matthew DO LAB - CHEMISTRY ORDE RABLES Performing Organization Address [facility]/ZIP Co de Phone Number [facility] [address] [place] [phone] * (ABNORMAL) COMPREHENSIVE METABOLIC PANEL (04/17/2023 8:59 PM HARNESS CLEANER) Glucose 268(H) 70 - 105 mg/dL 04/17/2023 9:15 PM HARNESS CLEANER [facility] Sodium 139 136 - 145 mmol/L 04/17/2023 9:15 PM HARNESS CLEANER [facility] Potassium 4.5 3.5 - 5.1 mmol/L 04/17/2023 9:15 PM HARNESS CLEANER [facility] Chloride 103 98 - 107 mmol/L 04/17/2023 9:15 PM [facility] CO2 24 22 - 29 mmol/L 04/17/2023 9:15 PM [facility] Calcium 9.6 8.4 - 10.4 mg/dL 04/17/2023 9:15 PM [facility] Anion Gap 12 6 - 16 mmol/L 04/17/2023 9:15 PM [facility] BUN 18 7 - 26 mg/dL 04/17/2023 9:15 PM [facility] Creatinine 1.07 0.57 - 1.11 mg/dL 04/17/2023 9:15 PM [facility] Alkaline Phosphatase 72 40 - 150 U/L 04/17/2023 9:15 PM [facility] ALT 16 0 - 55 U/L 04/17/2023 9:15 PM [facility] AST 18 5 - 34 U/L 04/17/2023 9:15 PM [facility] Protein Total 8.4(H) 6.4 - 8.3 gm/dL 04/17/2023 9:15 PM [facility] Albumin 3.3(L) 3.4 - 5.0 gm/dL 04/17/2023 9:15 PM [facility] Bilirubin Total 0.4 0.2 - 1.2 mg/dL 04/17/2023 9:15 PM [facility] eGFR by CKD-EPI 57(L) >=90 mL/min/1.7 3 m2 04/17/2023 9:15 PM [facility] Blood BLOOD SPECIMEN / Unknown Venipuncture / Unknown 04/17/2023 8:59 PM HARNESS CLEANER 04/17/2023 8:59 PM [facility] Lalit Matthew DO LAB - CHEMISTRY ANGEL SPEARS [facility] [address] [place] [address] * (ABNORMAL) CBC W AUTO DIFFERENTIAL (04/17/2023 8:59 PM HARNESS CLEANER) [facility] Signature WBC 10.0 4.0 - 10.7 x10E9/L 04/17/2023 9:03 PM [facility] RBC Count 4.27 3.90 - 5.20 x10E12/L 04/17/2023 9:03 PM [facility] Hemoglobin 12.3 11.9 - 15.8 g/dL 04/17/2023 9:03 PM [facility] Hematocrit 39.2 34.8 - 46.1 % 04/17/2023 9:03 PM [facility] MCV 91.8 80.0 - 98.0 fL 04/17/2023 9:03 PM [facility] MCH 28.8 26.7 - 33.6 pg 04/17/2023 9:03 PM [facility] MCHC 31.4(L) 31.7 - 36.3 g/dL 04/17/2023 9:03 PM [facility] RDW-CV 13.6 11.3 - 14.8 % 04/17/2023 9:03 PM [facility] Platelet Count 288 150 - 420 x10E9/L 04/17/2023 9:03 PM [facility] MPV 9.7 7.8 - 11.4 fL 04/17/2023 9:03 PM [facility] Neutrophil % 56.0 41.0 - 74.0 % 04/17/2023 9:03 PM [facility] Lymphocyte % 31.1 17.0 - 47.0 % 04/17/2023 9:03 PM [facility] Monocyte % 8.8 3.0 - 11.0 % 04/17/2023 9:03 PM [facility] Eosinophil % 3.2 0.0 - 7.0 % 04/17/2023 9:03 PM [facility] Basophil % 0.4 0.0 - 1.6 % 04/17/2023 9:03 PM [facility] Immature Granulocytes % 0.5 0.0 - 1.0 % 04/17/2023 9:03 PM [facility] Neutrophil Absolute 5.59 1.60 - 7.50 x10E9/L 04/17/2023 9:03 PM [facility] Lymphocyte Absolute 3.10 1.00 - 4.40 x10E9/L 04/17/2023 9:03 PM [facility] Monocyte Absolute 0.88 0.15 - 1.00 x10E9/L 04/17/2023 9:03 PM HARNESS CLEANER [facility] Eosinophil Absolute 0.32 0.00 - 0.60 x10E9/L 04/17/2023 9:03 PM HARNESS CLEANER [facility] Basophil Absolute 0.04 0.00 - 0.13 x10E9/L 04/17/2023 9:03 PM HARNESS CLEANER [facility] Blood BLOOD SPECIMEN / Unknown Venipuncture / Unknown 04/17/2023 8:59 PM HARNESS CLEANER 04/17/2023 8:59 PM HARNESS CLEANER Lalit Matthew DO LAB - HEMATOLOGY ORD ERABLES [facility] [address] [place] [address] documented in this encounter Visit [...] 8 hours. $ Given 04/20/2023 6:12 AM HARNESS CLEANER 3 mL $ Given 04/19/2023 8:38 PM HARNESS CLEANER 3 mL $ Given 04/19/2023 1:16 PM HARNESS CLEANER 3 mL acetaminophen (Tylenol) tablet 1,000 mg [...] the MAR. $ Given 04/20/2023 1:47 PM HARNESS CLEANER 1,000 mg $ Given 04/20/2023 6:12 AM HARNESS CLEANER 1,000 mg $ Given 04/19/2023 3:05 PM HARNESS CLEANER 1,000 mg amitriptyline (Elavil) tablet 25 mg 25 mg, Oral, AT BEDTIME, First dose on Mon04/18/23 at 2100, Until Discontinued $ Given 04/19/2023 8:39 PM HARNESS CLEANER 25 mg $ Given 04/18/2023 9:46 PM HARNESS CLEANER 25 mg dextrose 10 % IV bolus [...] lock box $ Given 04/19/2023 8:41 PM HARNESS CLEANER 25 mg $ Given 04/18/2023 9:48 PM HARNESS CLEANER 25 mg fosfomycin (Monurol) packet 3 g 3 g, Oral, ONCE, 1 dose, On Mon04/20/23 at 1200, Pour contents into 3-4 oz of water and stir., Indication for restricted anti-infective (Tier 2) therapy: Unable to use any other agent for cystitis, Site of anti-infective therapy: Urine/Genitourinary $ Given 04/20/2023 12:16 PM HARNESS CLEANER 3 g glucagon (Glucagen) injection 1 mg [...] Until Discontinued $ Given 04/20/2023 8:22 AM HARNESS CLEANER 12.5 mg $ Given 04/19/2023 8:40 AM HARNESS CLEANER 12.5 mg $ Given 04/18/2023 1:39 PM HARNESS CLEANER 12.5 mg HYDROcodone-acetaminophen (Provo) 10-325 MG tablet 1 tablet 1 tablet, [...] the MAR. $ Given 04/19/2023 10:58 AM HARNESS CLEANER 1 tablet $ Given 04/19/2023 4:25 AM HARNESS CLEANER 1 tablet $ Given 04/18/2023 10:40 PM HARNESS CLEANER 1 tablet insulin aspart (NovoLOG) pen 0-12 [...] same time. $ Given 04/20/2023 12:15 PM HARNESS CLEANER 8 Units Abdominal Tissue $ Given 04/20/2023 8:21 AM HARNESS CLEANER 2 Units Ab dominal Tissue $ Given 04/19/2023 5:45 PM HARNESS CLEANER 10 Units Ab dominal Tissue insulin aspart [...] same time. $ Given 04/18/2023 9:51 PM HARNESS CLEANER 3 Units Abdominal Tissue insulin aspart (NovoLOG) pen 15 Units 15 Units, Subcutaneous, 3 TIMES DAILY WITH MEALS, First dose on Mon04/18/23 at 1200, Until Discontinued, Hold MEALTIME insulin if patient is NPO or eating less than 50% of meals. -OR- if carb intake for the meal is less than 30 grams. $ Given 04/20/2023 12:14 PM HARNESS CLEANER 15 Units Abdominal Tissue $ Given 04/20/2023 8:20 AM HARNESS CLEANER 15 Units Ab dominal Tissue $ Given 04/19/2023 5:45 PM HARNESS CLEANER 15 Units Ab dominal Tissue insulin glargine (Lantus) pen 45 Units 45 Units, Subcutaneous, EVERY MORNING, First dose on Mon04/18/23 at 1200, Until Discontinued, DO NOT HOLD even if patient is NPO Consider calling physician for dose reduction if patient is made NPO. . WASTE DISPOSAL INSTRUCTIONS: Black Bin Disposal required. $ Given 04/19/2023 8:42 AM HARNESS CLEANER 45 Units Abdominal Tissue $ Given 04/18/2023 1:45 PM HARNESS CLEANER 45 Units Ab dominal Tissue insulin glargine (Lantus) pen 50 Units 50 Units, Subcutaneous, EVERY MORNING, First dose (after last modification) on Mon04/20/23 at 0700, Until Discontinued, DO NOT HOLD even if patient is NPO Consider calling physician for dose reduction if patient is made NPO. . WASTE DISPOSAL INSTRUCTIONS: Black Bin Disposal required. $ Given 04/20/2023 8:20 AM HARNESS CLEANER 50 Units Abdominal Tissue lidocaine (Lidoderm) 5 % patch 1 patch 1 patch, Administer over 12 Hours, EVERY 24 HOURS, First dose on Mon04/18/23 at 1500, Until Discontinued, Apply to low back and remove patch after a max of 12 hours of application within a 24 hour period. $ Applied 04/18/2023 2:58 PM HARNESS CLEANER 1 patch Back lidocaine (Lidoderm) 5 % [...] healing incisions. $ Applied 04/19/2023 3:03 PM HARNESS CLEANER 1 patch Back methocarbamol (Robaxin) tablet 500 mg 500 mg, Oral, EVERY 8 HOURS, First dose on Mon04/19/23 at 1515, Until Discontinued $ Given 04/20/2023 1:47 PM HARNESS CLEANER 500 mg $ Given 04/20/2023 6:12 AM HARNESS CLEANER 500 mg $ Given 04/19/2023 11:16 PM HARNESS CLEANER 500 mg methylPREDNISolone (Medrol) tablet 4 mg 4 mg, Oral, EVERY 6 HOURS, 8 doses, First dose on Mon04/18/23 at 1800, Last dose on Mon04/20/23 at 1200 $ Given 04/20/2023 12:16 PM HARNESS CLEANER 4 mg $ Given 04/20/2023 6:13 AM HARNESS CLEANER 4 mg $ Given 04/19/2023 11:16 PM HARNESS CLEANER 4 mg methylPREDNISolone sod succ (SOLU-Medrol) injection 125 mg 125 mg, Intravenous, ONCE, 1 dose, On Mon04/18/23 at 0145 $ Given 04/18/2023 2:47 AM HARNESS CLEANER 125 mg morphine injection 1 mg 1 [...] the MAR. $ Given 04/18/2023 2:55 PM HARNESS CLEANER 1 mg morphine injection 2 mg 2 [...] the MAR. $ Given 04/19/2023 3:05 PM HARNESS CLEANER 2 mg $ Given 04/19/2023 6:32 AM HARNESS CLEANER 2 mg $ Given 04/18/2023 9:44 PM HARNESS CLEANER 2 mg morphine injection 4 mg 4 [...] the MAR. $ Given 04/17/2023 9:01 PM HARNESS CLEANER 4 mg morphine injection 4 mg 4 [...] the MAR. $ Given 04/18/2023 2:47 AM HARNESS CLEANER 4 mg ondansetron (disintegrating) (Zofran ODT) tablet 4 mg 4 mg, Oral, EVERY 6 HOURS PRN, Nausea/Vomiting, Starting on Mon04/18/23 at 1108, Until Mon04/20/23 at 1653, Dissolved orally on tongue ondansetron (Zofran) injection 4 mg 4 mg, Intravenous, NOW, 1 dose, On Mon04/17/23 at 2045, Administer over 2 to 5 minutes. $ Given 04/17/2023 9:00 PM HARNESS CLEANER 4 mg ondansetron (Zofran) injection 4 mg [...] the MAR. $ Given 04/20/2023 8:26 AM HARNESS CLEANER 10 mg $ Given 04/20/2023 2:49 AM HARNESS CLEANER 10 mg oxyCODONE (immediate release) (Roxicodone) tablet [...] the MAR. $ Given 04/19/2023 8:40 PM HARNESS CLEANER 5 mg rivaroxaban (Xarelto) tablet 20 mg 20 mg, Oral, DAILY WITH FOOD, First dose on Mon04/18/23 at 1200, Until Discontinued, For tube administration, please refer to the MAR References links: Administration Dose of 15 mg or greater should be taken with food $ Given 04/20/2023 8:22 AM CS T 20 mg $ Given 04/19/2023 8:40 AM HARNESS CLEANER 20 mg $ Given 04/18/2023 2:50 PM HARNESS CLEANER 20 mg rOPINIRole (Requip) tablet 5 mg 5 mg, Oral, AT BEDTIME, First dose on Mon04/18/23 at 2100, Until Discontinued $ Given 04/19/2023 8:39 PM HARNESS CLEANER 5 mg $ Given 04/18/2023 9:46 PM HARNESS CLEANER 5 mg senna (Senokot) tablet 8.6 mg 8.6 mg, Oral, DAILY, First dose on Mon04/18/23 at 1145, Until Discontinued $ Given 04/20/2023 8:22 AM HARNESS CLEANER 8.6 mg tolterodine ER 24hr (Detrol LA) capsule 4 mg 4 mg, Oral, DAILY, First dose on Mon04/18/23 at 1145, Until Discontinued, Do not crush or chew. $ Given 04/20/2023 8:22 AM HARNESS CLEANER 4 mg $ Given 04/19/2023 8:40 AM HARNESS CLEANER 4 mg $ Given 04/18/2023 2:50 PM HARNESS CLEANER 4 mg documented in this encounter Active and Recently Administered Medications Times are shown in HARNESS CLEANER. Scheduled Medication Order 04/18/2023 04/19/2023 04/20/2023 0.9% NaCl injection 3 mL(Linked Group 1) 3 mL, Intracatheter, EVERY 8 HOURS, First dose on Mon04/17/23 at 2200, Until Discontinued, Flush peripheral IV catheter with 3 mL of normal saline every 8 hours. 9139 (Not Administered - Provider: Al Pedro RN - Reason: See Comments - Comment: pt off unit)1341 ($ Given - Provider: Al Pedro RN)2144 ($ Given - Provider: Jossy Valero RN) 0426 ($ Given - Provider: Jsosy Valero RN)0632 ($ Given - Provider: Jossy [...] required. 0820 ($ Given - Provider: Serena Sr RN) lidocaine (Lidoderm) 5 % patch 1 [...] NOTIFY PROVIDER OF HYPOGLYCEMIC EVENT. HYDROcodone-acetaminophe n (Provo) 10-325 MG tablet 1 tablet (CANCELED) 1 [...] ($ Given - Provider: Jossy Valero, RN) 0240 (See Alternative - Provider: Jossy Valero RN)0852 (See Alternative - Provider: Serena Sr, NURIS) [...] MAR. documented in this encounter Care Teams Optimization Manager Relationship Specialty Start Date End Date Justen Gale MD PCP - General 07/05/21 documented as of this encounter
--- OUTSIDE RECORDS SUMMARY | 2024-04-26 06:53 | XMS_ITS | Encounter Summary ---
Author Organization [facility] Address [address] [place] [address] Care Team Providers Care Lace Roller Operator Name Role Phone Justen Gale MD Primary Care Provider [phone] Reason for Visit * Reason Onset Date Comments Reminder Call 03/29/2023 Encounter Details Date Type Department Care Team (Late st Contact Info) Description 03/29/2023 Telephone Transitional Care at [address] [address] Aislinn Rosario, MONIKA Reminder Call [...] and heating? Not hard at all 02/22/2023 [facility] [place] of Occupat ional Health - Occupational Stress [...] Aislinn Rosario MA - 03/29/2023 9:11 AM CERAMIC TILE MECHANIC Attempted to contact patient to confirm [facility] appointment on 03/30/23 at 9:00. No answer, left message to return our call to confirm appointment. MIC TILE MECHANIC documented in this encounter Plan of Treatment Not on file documented as of this encounter Visit Diagnoses Not on filedocumented in this encounter Care Teams Lace Roller Operator Relationship Specialty Start Date End Date Justen Gale MD PCP - General 07/05/21 documented as of this encounter
--- OUTSIDE RECORDS SUMMARY | 2024-04-26 06:53 | XMS_ITS | Encounter Summary ---
Author Organization [facility] Address [address] [facility] [place] [address] Care Team Providers Care Helpdesk Administrator Name Role Phone Justen Gale MD Primary Care Provider [phone] Reason for Referral * Neurology (Emergency) - Closed Specialty Diagnoses / Procedures Referred By Elyssa benavides Referred To Contact Electrophysiology Diagnoses Left leg weakness Procedures EMG WITH NERVE CONDUCTION STUDY Melly Banks APRN-CNP [address] [address] Referral ID Status Reason Start Date Expiration Date Visits Re quested Visits Authorized [id number] Closed 05/22/2023 05/21/2024 1 1 PROCESSING OPERATOR Encounter Details Date Type Department Care Team (Late st Contact Info) Description 05/22/2023 Orders Only [facility] - Neurosurgery [address] [place] [address] [address] [place] [id number] Melly Banks APRN-CNP [address] [place] [address] Left leg weakness Social History [...] medical care, and heating? Somewhat hard 05/16/2023 [facility] of Occupat ional Health - Occupational Stress [...] WITH NERVE CONDUCTION STUDY (05/31/2023 11:59 PM WORD PROCESSING OPERATOR) Narrative Stanford Saldana MD - 05/31/2023 11:59 PM WORD PROCESSING OPERATOR Stanford Saldana MD ? 06/05/2023 ??5:21 PM [facility] [address] [place] [address], [address] [phone] Patient: Karly Marques V #: ??Physician: Stanford Saldana MD Sex: Female ID#: [id number] Ref Phys: ITA Patel : [id number] Date: 05/31/2023 Burr Bench Operator: Christin Panchal Patient Complaints: The patient is [...] 0 Nml ND Waveforms: ? Melly Banks FRUIT AND VEGETABLE INSPECTOR-SPECIALTY [facility] ORDERA BLES documented in this encounter Visit Diagnoses Diagnosis Left leg weakness- Primary Other musculoskeletal symptoms referable to limbs Left leg weakness Other musculoskeletal symptoms referable to limbs documented in this encounter Care Teams Helpdesk Administrator Relationship Specialty Start Date End Date Justen Gale MD PCP - General 07/05/21 documented as of this encounter
--- OUTSIDE RECORDS SUMMARY | 2024-04-26 06:53 | XMS_ITS | Encounter Summary ---
Author Organization [facility] Address [address] [facility] [place] [address] Care Team Providers Care Jewelry Estimator Name Role Phone Justen Gale MD Primary Care Provider [phone] Encounter Details Date Type Department Care Team [...] and heating? Not hard at all 02/22/2023 [facility] [place] of Occupat ional Health - Occupational Stress [...] on filedocumented in this encounter Care Teams Jewelry Estimator Relationship Specialty Start Date End Date Justen Gale MD PCP - General 07/05/21 documented as of this encounter
--- OUTSIDE RECORDS SUMMARY | 2024-04-26 06:53 | XMS_ITS | Encounter Summary ---
Author Organization [facility] Address [address] [facility] [place] [address] Care Team Providers Care Incident Commander Name Role Phone Justen Gale MD Primary Care Provider [phone] Reason for Visit * Reason Onset Date Comments Appointment 05/17/2023 Encounter Details Date Type Department Care Team (Late st Contact Info) Description 05/17/2023 Telephone [facility] - Neurosurgery [address] [facility], [place] [address] Angeline Avila, RN Appointment Social [...] medical care, and heating? Somewhat hard 05/16/2023 [facility] [place] of Occupat ional Health - Occupational Stress [...] Angeline Avila RN - 05/17/2023 8:41 AM FACILITIES MANAGER Returned call to patient per voicemail requesting to Reschedule appt. Unable to contact, left voicemail to call Centralized Scheduling for appointments. LITIES MANAGER documented in this encounter Plan of Treatment Not on file documented as of this encounter Visit Diagnoses Not on filedocumented in this encounter Care Teams Incident Commander Relationship Specialty Start Date End Date Justen Gale MD PCP - General 07/05/21 documented as of this encounter
--- OUTSIDE RECORDS SUMMARY | 2024-04-26 06:53 | XMS_ITS | Encounter Summary ---
Author Organization [facility] Address [address] [place] [address] Care Team Providers Care Anesthesiology Crna Name Role Phone Justen Gale MD Primary Care Provider [phone] Reason for Visit * Reason Comments Post-Op Post op/wound check Encounter Details Date Type Department Care Team (Late st Contact Info) Description 03/27/2023 10:00 AM SENIOR SALES DIRECTOR Office Visit [facility] - Neurosurgery [address] [place] [address] [address] [place] [phone] Maxi Gregg MD [address] [place] [phone] S/P insertion of spinal cord stimulator (Primary [...] and heating? Not hard at all 02/22/2023 [facility] [place] of Occupat ional Health - Occupational Stress [...] [place] No 02/22/2023 Sex and Gender Information Value Date Recorded Sex Assigned at Not on file Gender Identity Not on file Sexual Orientation Not on file documented as of this encounter Last Filed Vital Signs Vital Sign Reading Time Taken Comments Blood Pressure 148/81 03/27/2023 9:55 AM SENIOR SALES DIRECTOR Pulse 93 03/27/2023 9:55 AM SENIOR SALES DIRECTOR Temperature 36.5 ??C (97.7 ??F) 03/27/2023 9:55 AM CS T Respiratory Rate 18 03/27/2023 9:55 AM SENIOR SALES DIRECTOR Oxygen Saturation 97% 03/27/2023 9:55 AM SENIOR SALES DIRECTOR Inhaled Oxygen Concentration - - Weight 123.8 kg (273 lb) 03/27/2023 9:55 AM SENIOR SALES DIRECTOR Height 154.9 cm (5' 1 ) 03/27/2023 9:55 AM SENIOR SALES DIRECTOR Body Mass Index 51.58 03/27/2023 9:55 AM SENIOR SALES DIRECTOR documented in this encounter Functional Status Functional [...] Angeline Avila RN - 03/27/2023 10:26 AM SENIOR SALES DIRECTOR Follow up with Dr. Gregg 3-4 weeks for a wound check OK to resume Anticoagulation medications Continue to monitor for signs of infections:fever,chills,drainage from site,redness and swelling okto go the [facility] For any questions please contact Angeline at [phone] For appointments call Centralized Scheduling at [phone] OR SALES DIRECTOR documented in this encounter Progress Notes [...] of a spinal stimulation system placed by ia in 2021. The patient later presented with [...] No Stress: No Stress Concern Present (02/22/2023) [facility] [place] of Occupational Health - Occupational Stress Questionnaire [...] (one) capsule by mouth once daily HYDROcodone-acetaminophen ([place]) 7.5-325 MG tablet Take 1 (one) tablet [...] care of your patient. Maxi Gregg MD [facility]/[place] .[id number] Doc ID: [id number] Voice Job ID: [id number] OR SALES DIRECTOR documented in this encounter Plan of Treatment Not on file documented as of this encounter Visit Diagnoses Diagnosis S/P insertion of spinal cord stimulator- Primary documented in this encounter Care Teams Anesthesiology Crna Relationship Specialty Start Date End Date Justen Gale MD PCP - General 07/05/21 documented as of this encounter
--- OUTSIDE RECORDS SUMMARY | 2024-04-26 06:53 | XMS_ITS | Encounter Summary ---
Author Organization [facility] Address [address] [place] [address] Care Team Providers Care Billiard Table Mechanic Name Role Phone Justen Gale MD Primary Care Provider [phone] Reason for Visit * Reason Comments Wound/Incision [...] Expiration Date Visits Re quested Visits Authorized [id number] 1 1 Encounter Details Date Type Department Care Team (Latest Contact Info) Description 02/21/2023 7:01 PM CDT - 02/26/2023 3:28 PM NEUROSURGERY SPINE PHYSICIAN Hospital Encounter SL 5N ACUTE [address] [place] [address] Berenice Hawkins MD [address] [place] [address] Maxi Gregg MD [address] [facility] 2L [place] [address] Neurosurgery Discharge Disposition: Home or [...] and heating? Not hard at all 02/22/2023 [facility] of Occupat ional Health - Occupational [...] Comments Blood Pressure 126/63 02/26/2023 11:50 AM NEUROSURGERY SPINE PHYSICIAN Pulse 87 02/26/2023 11:50 AM NEUROSURGERY SPINE PHYSICIAN Temperature 36.4 ??C (97.5 ??F) 02/26/2023 8:51 AM CS T Respiratory Rate 18 02/26/2023 8:51 AM NEUROSURGERY SPINE PHYSICIAN Oxygen Saturation 100% 02/26/2023 11:50 AM NEUROSURGERY SPINE PHYSICIAN Inhaled Oxygen Concentration 35% 02/26/2023 4 :38 AM NEUROSURGERY SPINE PHYSICIAN Weight 124.7 kg (275 lb) 02/21/2023 5:20 [...] Physician Discharge Summary Patient ID: Karly Marques [id number] 67 year old 1955 Admit date: 02/21/2023 [...] (one) capsule by mouth once daily HYDROcodone-acetaminophen ([place]) 7.5-325 MG tablet Take 1 (one) tablet [...] follow-up Maxi Gregg MD Specialty: Neurological Surgery [address] [place] [address] OF NEUROSURGERY [facility] [address] Next Steps: Follow up Tyler Nguyen MD, 02/26/2023 at 7:15 AM OSURGERY SPINE PHYSICIAN * Justen Mckeon MD - 02/25/2023 11:40 AM CDT Physician Discharge Summary Patient ID: Karly Marques [id number] 67 year old 1955 Admit date: 02/21/2023 [...] (one) capsule by mouth once daily HYDROcodone-acetaminophen ([place]) 7.5-325 MG tablet Take 1 (one) tablet [...] Gregg MD Specialty: Neurological Surgery [address] OF NEUROSURGERY [facility] [address] Next Steps: Follow up Justen Mckeon MD, 02/25/2023 at 11:40 AM OSURGERY SPINE PHYSICIAN documented in this encounter Medications at Time [...] [employer] pen 40 (forty) Units once 02/25/2022 [employer]TOUCH ULTRA test strip 4 times daily 02/01/2021 [...] mouth once daily 07/17/2022 05/19/2023 HYDROcodone-acetaminoph en ([place]) 10-325 MG tablet Take 1 (one) tablet [...] found in the flowsheet documentation) Outcome: Progressing OSURGERY SPINE PHYSICIAN * Yeni Sloan RN - 02/26/2023 6:18 AM CST Problem: Pain/Discomfort Goal: Patient exhibits reduced pain/discomfort as evidenced by pain scores Outcome: Progressing Goal: Patient uses pharmacological and non-pharmacological pain management strategies. Outcome: Progressing Goal: Patient verbalizes acceptable level of pain relief and ability to engage in desired activity. Outcome: Progressing OSURGERY SPINE PHYSICIAN * Caesar Wang RN - 02/25/2023 5:41 [...] He PT - 02/25/2023 2:10 PM CDT [facility] Department of Physical Medicine & Rehabilitation Patient: Karly Marques [facility] Record Number: [id number] Date of : 1955 Age: [age] year [...] Edwards OT - 02/25/2023 2:02 PM CDT [facility] Department of Physical Medicine & Rehabilitation Progress Note Patient: Karly Marques [facility] Record Number: [id number] Date of : 1955 Age: [age] year [...] chew tablet 4 tablet, Oral, PRN HYDROcodone-acetaminophen ([place]) 10-325 MG tablet 1 tablet, Oral, q4h PRN HYDROcodone-acetaminophen ([place]) 5-325 MG tablet 1 tablet, Oral, q4h [...] From 5pm to 7am please refer to [employer]) to reach the resident release of information specialist (changes daily) Secure chat can be used for non-urgent issues only, please expect a reasonable amount of time for responses OSURGERY SPINE PHYSICIAN * Caesar Wang RN - 02/24/2023 6:57 [...] Huitron MD - 02/24/2023 12:12 PM CDT [facility] Infectious Diseases Consultation Patient Name: Karly Marques 1955 Room: [facility] Date of Admission: 02/21/2023 Date of Service: [...] peripheral neuropathy, and PE. Patient presented to [facility] on 02/21/2023 with discharge from her incision [...] once daily 07/17/22 Tyler Smith MD HYDROcodone-acetaminophen ([place]) 7.5-325 MG tablet Take 1 (one) tablet [...] Procedure Component Value - Date/Time CULTURE URINE [[id number]] Collected: 02/22/23 024 Lab Status: Final result Specimen: Urine Clean Catch Updated: 02/23/23 1217 Culture Urine <10,000 CFU/mL urogenital charla CULTURE BLOOD [[id number]] (Normal) Collected: 02/21/232034 Lab Status: Preliminary result Specimen: Blood Peripheral Updated: 02/23/232300 Culture No growth CULTURE BLOOD [[id number]] (Normal) Collected: 02/21/232019 Lab Status: Preliminary result [...] attending physician, Dr. Guevara. Benjamin Huitron MD [employer] Associated attestation - Kavon [...] Mei, PT - 02/24/2023 10:16 AM CDT [facility] Department of Physical Medicine & Rehabilitation Patient: Karly Marques Med Record Number: [id number] Date of : 1955 Age: [age] year old 02/24/23 1000 Missed Visit Missed Visit No Activity Order * Rachel Campbell, ZAMZAM-FABRIC SEPARATOR OPERATOR - 02/24/2023 9:27 AM CDT Neurosurgery Progress [...] tablet 4 tablet, Oral, PRN ?? HYDROcodone-acetaminophen ([place]) 10-325 MG tablet 1 tablet, Oral, q4h PRN ?? HYDROcodone-acetaminophen ([place]) 5-325 MG tablet 1 tablet, Oral, q4h [...] movement today, continue bowel regimen Rachel Campbell APRN-FABRIC SEPARATOR OPERATOR 9:27 AM 02/24/23 To reach Neurosurgery for questions: From 7am to 5pm please call the [facility] for Neurosurgery From 5pm to 7am please refer to [employer]) to reach the resident release of information specialist (changes daily) Secure chat can be used for non-urgent issues only, please expect a reasonable amount of time for responses OSURGERY SPINE PHYSICIAN * Theresa Aranda RN - 02/24/2023 8:34 [...] Information Primary Emergency Contact: Jimmie Marques Address: [address] [place] [address] [place] [address] Relation: Spouse Secondary Emergency Contact: Yunior Velez Mobile Relation: Daughter Transportation at Discharge: : daughter READMISSION RISK SCORE is 15 at 8:34 AM 02/24/2023.: Name: Theresa Aranda RN [phone] * Aixa Pride RN - 02/23/2023 10:00 AM CDT Problem: Pain/Discomfort Goal: Patient exhibits reduced pain/discomfort as evidenced by pain scores 02/23/2023 1000 by Aixa Pride RN Outcome: [...] 6:27 AM CDT Neurosurgery Progress Note Karly [place] Marques 02/23/23 Hospital Day: 2 Subjective: Patient [...] tablet 4 tablet, Oral, PRN ?? HYDROcodone-acetaminophen ([place]) 10-325 MG tablet 1 tablet, Oral, q4h PRN ?? HYDROcodone-acetaminophen ([place]) 5-325 MG tablet 1 tablet, Oral, q4h [...] Assistance With: Mobility;Housekeeping;Meal Preparation;Medication Administration;Shopping;Dressing Preferred Pharmacy: [id number] - [address] [place] [address] [address] [place] [address] READMISSION RISK SCORE is 13 at 12:25 PM 02/22/2023. Met with patient Family Support (name and phone): Extended Emergency Contact Information Primary Emergency Contact: Jimmie Marques Address: [address] [place] [address] [place] [address] [place] Relation: Spouse Secondary Emergency Contact: Yunior Velez Mobile Relation: Daughter Patient or cordage sales representative requests care coordination reach out to family or caregiver listed above regarding discharge planning and at time of discharge? Yes Patient/Family provided with list of resources? Unknown Preferred Provider / High Quality Network List given?: Unknown Reason for provider choice: Unknown Tent Assembler Referral: No Will continue to follow. For any questions or needs please contact: Electrical Supervisor Name/Phone number: Theresa Aranda RN [phone] * [...] Christin Salcedo, PharmD 02/22/2023 11:[address] [facility] Vancomycin Guideline SUBJECTIVE/OBJECTIVE Karly Marques is a [...] 13 12 WBC 11.6* 14.9* 8.9 10.8* @[id number]@ Dialysis Orders (72h ago, onward) None Radiocontrast [...] Heather Toribio PharmD 02/21/2023 8:[address] [facility] Vancomycin Guideline SUBJECTIVE/OBJECTIVE Karly Marques is a [...] (one) capsule by mouth once daily HYDROcodone-acetaminophen ([place]) 7.5-325 MG tablet Take 1 (one) tablet [...] CDTAssociated Order(s): IP CONSULT TO INFECTIOUS DISEASES [facility] Infectious Diseases Consultation Patient Name: Karly Marques 1955 Room: [facility] Date of Admission: 02/21/2023 Date of Service: [...] peripheral neuropathy, and PE. Patient presented to [facility] on 02/21/2023 with discharge from her incision [...] once daily 07/17/22 Tyler Smith MD HYDROcodone-acetaminophen ([place]) 7.5-325 MG tablet Take 1 (one) tablet [...] Procedure Component Value - Date/Time CULTURE URINE [[id number]] Collected: 02/22/23 024 Lab Status: Final result Specimen: Urine Clean Catch Updated: 02/23/23 1217 Culture Urine <10,000 CFU/mL urogenital charla CULTURE BLOOD [[id number]] (Normal) Collected: 02/21/232034 Lab Status: Preliminary result Specimen: Blood Peripheral Updated: 02/22/232300 Culture No growth 24 hours CULTURE BLOOD [[id number]] (Normal) Collected: 02/21/232019 Lab Status: Preliminary result [...] attending physician, Dr. Guevara. Benjamin Huitron MD [facility] Associated attestation - Kavon Guevara MD - [...] RN - 02/21/2023 7:35 PM CDT Bed: [facility] Expected date: Expected time: Means of [...] discharge. Patient notes she has been taking [place] and tylenol for pain management. Patient denies [...] No Stress: No Stress Concern Present (12/23/2022) [facility] of Occupational Health - Occupational Stress Questionnaire [...] direction and in the presence of Dr. Hawkins. Signed: Kehinde Kimble. The scribe's documentation has [...] POINT OF CARE Routine 02/26/2023 11:50 AM NEUROSURGERY SPINE PHYSICIAN GLUCOSE - POINT OF CARE Routine 02/26/2023 9:31 AM NEUROSURGERY SPINE PHYSICIAN GLUCOSE - POINT OF CARE Routine 02/25/2023 [...] PM CDT History of wound infection PT-INR [facility] STAT 02/21/2023 6:30 PM CDT LACTIC ACID [...] - POINT OF CARE (02/26/2023 11:50 AM NEUROSURGERY SPINE PHYSICIAN) [facility] Glucose WB/POC 247(H) 70 - 115 mg/dL 02/26/2023 12:00 PM NEUROSURGERY SPINE PHYSICIAN [facility] Specimen Type Cap Fingerstick 2022 12:00 PM NEUROSURGERY SPINE PHYSICIAN [facility] Blood BLOOD SPECIMEN / Unknown 02/26/2023 11:50 AM NEUROSURGERY SPINE PHYSICIAN 02/26/2023 12:00 PM NEUROSURGERY SPINE PHYSICIAN Maxi Gregg MD LAB - POINT OF ARE ORDERABLES [facility] [address] [place] [address], [place] [phone] * (ABNORMAL) GLUCOSE - POINT OF CARE (02/26/2023 9:31 AM NEUROSURGERY SPINE PHYSICIAN) Glucose WB/POC 175(H) 70 - 115 mg/dL 02/26/2023 9:39 AM NEUROSURGERY SPINE PHYSICIAN [facility] Specimen Type Arterial 02/26/2023 9:39 AM NEUROSURGERY SPINE PHYSICIAN [facility] Blood BLOOD SPECIMEN / Unknown 02/26/2023 9:31 AM NEUROSURGERY SPINE PHYSICIAN 02/26/2023 9:39 AM NEUROSURGERY SPINE PHYSICIAN Maxi Gregg MD LAB - POINT OF ARE ORDERABLES [address] [address], [place] [phone] * (ABNORMAL) GLUCOSE - POINT OF CARE (02/25/2023 7:24 PM CDT) Glucose WB/POC 308(H) 70 - 115 mg/dL 02/25/2023 7:39 PM CDT [facility] Specimen Type Cap Fingerstick 2022 7:39 PM CDT [facility] Blood BLOOD SPECIMEN / Unknown 02/25/2023 7:24 PM CDT 02/25/2023 7:39 PM CDT Maxi Gregg MD LAB - POINT [facility] ARE ORDERABLES [address] [address], [place] [phone] * (ABNORMAL) GLUCOSE - POINT OF CARE (02/25/2023 5:17 PM CDT) Glucose WB/POC 280(H) 70 - 115 mg/dL 02/25/2023 5:22 PM CDT [facility] Specimen Type Cap Fingerstick 2022 5:22 PM CDT [facility] Blood BLOOD SPECIMEN / Unknown 02/25/2023 5:17 PM CDT 02/25/2023 5:22 PM CDT Maxi Gregg MD LAB - POINT OF ARE ORDERABLES [address] [address], [place] [phone] * (ABNORMAL) GLUCOSE - POINT OF CARE (02/25/2023 11:35 AM CDT) Glucose WB/POC 279(H) 70 - 115 mg/dL 02/25/2023 11:49 AM CDT [facility] Specimen Type Arterial 02/25/2023 11:49 AM CDT [facility] Blood BLOOD SPECIMEN / Unknown 02/25/2023 11:35 AM CDT 02/25/2023 11:49 AM CDT Maxi Gregg MD LAB - POINT OF ARE ORDERABLES [address] [address], [place] [phone] * (ABNORMAL) GLUCOSE - POINT OF CARE (02/25/2023 9:27 AM CDT) Glucose WB/POC 188(H) 70 - 115 mg/dL 02/25/2023 9:33 AM CDT [facility] Specimen Type Cap Fingerstick 2022 9:33 AM CDT [facility] Blood BLOOD SPECIMEN / Unknown 02/25/2023 9:27 AM CDT 02/25/2023 9:33 AM CDT Mxai Gregg MD LAB - POINT [facility] ARE ORDERABLES [address] [address], [place] [phone] * (ABNORMAL) GLUCOSE - POINT OF CARE (02/24/2023 8:55 PM CDT) Glucose WB/POC 293(H) 70 - 115 mg/dL 02/24/2023 9:00 PM CDT [facility] Specimen Type Cap Fingerstick 2022 9:00 PM CDT [facility] Blood BLOOD SPECIMEN / Unknown 02/24/2023 8:55 PM CDT 02/24/2023 9:00 PM CDT Maxi Gregg MD LAB - POINT [facility] ARE ORDERABLES Performing Organization Address City/[facility]/ZIP Co de Phone Number [address] [address], [place] [phone] * (ABNORMAL) GLUCOSE - POINT OF CARE (02/24/2023 4:43 PM CDT) Glucose WB/POC 241(H) 70 - 115 mg/dL 02/24/2023 4:47 PM CDT [facility] Specimen Type Arterial 02/24/2023 4:47 PM CDT [facility] Blood BLOOD SPECIMEN / Unknown 02/24/2023 4:43 PM CDT 02/24/2023 4:47 PM CDT Maxi Gregg MD LAB - POINT [facility] ARE ORDERABLES [address] [address], [place] [phone] * (ABNORMAL) GLUCOSE - POINT OF CARE (02/24/2023 11:57 AM CDT) Glucose WB/POC 222(H) 70 - 115 mg/dL 02/24/2023 12:02 PM CDT [facility] Specimen Type Arterial 02/24/2023 12:02 PM CDT [facility] Blood BLOOD SPECIMEN / Unknown 02/24/2023 11:57 AM CDT 02/24/2023 12:02 PM CDT Maxi Gregg MD LAB - POINT OF ARE ORDERABLES [address] [address], [facility] [phone] * (ABNORMAL) GLUCOSE - POINT OF CARE (02/24/2023 7:38 AM CDT) Glucose WB/POC 193(H) 70 - 115 mg/dL 02/24/2023 7:55 AM T [facility] Specimen Type Arterial 02/24/2023 7:55 AM CDT [facility] Blood BLOOD SPECIMEN / Unknown 02/24/2023 7:38 AM CDT 02/24/2023 7:55 AM CDT Maxi Gregg MD LAB - POINT OF C ARE ORDERABLES [address] [address], [facility] [phone] * (ABNORMAL) RENAL FUNCTION PANEL (02/24/2023 2:33 AM CDT) BUN 11 7 - 26 mg/dL 02/24/2023 4:05 AM [facility] Creatinine 0.63 0.56 - 0.96 mg/dL 02/24/2023 4:05 AM [facility] Sodium 138 136 - 145 mmol/L 02/24/2023 4:05 AM [facility] Potassium 4.0 3.5 - 4.5 mmol/L 02/24/2023 4:05 AM [facility] Chloride 106 98 - 107 mmol/L 02/24/2023 4:05 AM [facility] CO2 26 22 - 29 mmol/L 02/24/2023 4:05 AM [facility] Glucose 213(H) 70 - 115 mg/dL 02/24/2023 4:05 AM [facility] Albumin 2.8(L) 3.4 - 5.0 g/dL 02/24/2023 4:05 AM [facility] Calcium 8.7 8.4 - 10.2 mg/dL 02/24/2023 4:05 AM [facility] Phosphorus 2.5(L) 2.9 - 5.1 mg/dL 02/24/2023 4:05 AM [facility] Anion Gap 6 6 - 16 02/24/2023 4:05 AM [facility] BUN/Creatinine Ratio 17 7 - 23 02/24/2023 4:05 AM [facility] Osmolality Calculated 292 275 - 295 mOsm/kg 02/24/2023 4:05 AM [facility] eGFR by CKD-EPI >90 >=90 mL/min/1.7 3 m2 02/24/2023 4:05 AM [facility] Blood BLOOD SPECIMEN / Unknown Lab Venipuncture / Unknown 02/24/2023 2:33 AM CDT 02/24/2023 3:34 AM T Rachel Campbell APRN-FABRIC SEPARATOR OPERATOR LAB - CHEMISTRY ORDE REGAN [facility] Organization Address City/State/ZIP Co de Phone Number [facility] [address] [place] [address], [facility] [phone] * (ABNORMAL) CBC W/O DIFFERENTIAL (02/24/2023 2:33 AM CDT) WBC 8.8 3.5 - 10.5 10? 3 /uL 02/24/2023 3:53 AM [facility] RBC 3.96 3.80 - 5.20 10? 6 /uL 02/24/2023 3:53 AM [facility] Hemoglobin 11.4(L) 12.0 - 15.6 g/dL 02/24/2023 3:53 AM [facility] Hematocrit 36.5 35.0 - 45.0 % 02/24/2023 3:53 AM [facility] MCV 92.2 80.7 - 98.3 fL 02/24/2023 3:53 AM [facility] MCH 28.8 26.7 - 34.0 pg 02/24/2023 3:53 AM [facility] MCHC 31.2 30.8 - 35.9 g/dL 02/24/2023 3:53 AM [facility] RDW-SD 45.6 36.0 - 50.0 fL 02/24/2023 3:53 AM [facility] RDW-CV 13.3 11.2 - 14.8 % 02/24/2023 3:53 AM [facility] Platelet Count 187 150 - 400 10? 3 /uL 02/24/2023 3:53 AM [facility] MPV 11.2 9.4 - 12.9 fL 02/24/2023 3:53 AM [facility] nRBC Absolute 0.00 0 10? 3 /uL 02/24/2023 3:53 AM [facility] nRBC Auto 0.0 0 /100 WBC 02/24/2023 3:53 AM [facility] Blood BLOOD SPECIMEN / Unknown Lab Venipuncture / Unknown 02/24/2023 2:33 AM CDT 02/24/2023 3:33 AM CDT Maxi Gregg MD LAB - HEMATOLOGY ORDERABLES Performing Organization Address City/State/[facility] Co de Phone Number [facility] [address] [place] [address], [facility] [phone] * (ABNORMAL) GLUCOSE - POINT OF CARE (02/23/2023 7:34 PM CDT) Glucose WB/POC 260(H) 70 - 115 mg/dL 02/25/2023 9:13 AM [facility] Specimen Type Cap Fingerstick 2022 9:13 AM [facility] Blood BLOOD SPECIMEN / Unknown 02/23/2023 7:34 PM CDT 02/25/2023 9:13 AM CDT Maxi Gregg MD LAB - POINT [facility] ARE ORDERABLES [address] [address], [place] [phone] * (ABNORMAL) GLUCOSE - POINT OF CARE (02/23/2023 4:05 PM CDT) Glucose WB/POC 216(H) 70 - 115 mg/dL 02/23/2023 4:16 PM CDT [facility] Specimen Type Arterial 02/23/2023 4:16 PM CDT [facility] Blood BLOOD SPECIMEN / Unknown 02/23/2023 4:05 PM CDT 02/23/2023 4:16 PM CDT Maxi Gregg MD LAB - POINT [facility] ARE ORDERABLES Performing Organization Address City/[facility]/ZIP Co de Phone Number [address] [address], [place] [phone] * CARDIAC EKG ORDER (02/23/2023 2:13 PM CDT) Narrative 02/23/2023 2:13 PM CDT Ordered by an unspecified provider. Scanned Document CARDIAC SERVICES ORD ERABLES * (ABNORMAL) GLUCOSE - POINT OF CARE (02/23/2023 11:59 AM CDT) Glucose WB/POC 256(H) 70 - 115 mg/dL 02/23/2023 12:04 PM CDT [facility] Specimen Type Arterial 02/23/2023 12:04 PM CDT [facility] Blood BLOOD SPECIMEN / Unknown 02/23/2023 11:59 AM CDT 02/23/2023 12:04 PM CDT Maxi Gregg MD LAB - POINT [facility] ARE ORDERABLES [address] [address], [place] [phone] * (ABNORMAL) GLUCOSE - POINT OF CARE (02/23/2023 8:08 AM CDT) Glucose WB/POC 227(H) 70 - 115 mg/dL 02/23/2023 8:20 AM CDT [facility] Specimen Type Arterial 02/23/2023 8:20 AM CDT [facility] Blood BLOOD SPECIMEN / Unknown 02/23/2023 8:08 AM CDT 02/23/2023 8:20 AM CDT Maxi Gregg MD LAB - POINT [facility] ARE ORDERABLES [address] [address], [place] [phone] * (ABNORMAL) GLUCOSE - POINT OF CARE (02/23/2023 6:08 AM CDT) Glucose WB/POC 221(H) 70 - 115 mg/dL 02/23/2023 6:09 AM CDT [facility] Specimen Type Cap Fingerstick 2022 6:09 AM CDT [facility] Blood BLOOD SPECIMEN / Unknown 02/23/2023 6:08 AM CDT 02/23/2023 6:09 AM CDT Maxi Gregg MD LAB - POINT OF ARE ORDERABLES [address] [address], [place] [phone] * (ABNORMAL) GLUCOSE - POINT OF CARE (02/22/2023 7:24 PM CDT) Glucose WB/POC 246(H) 70 - 115 mg/dL 02/22/2023 7:25 PM CDT [facility] Specimen Type Cap Fingerstick 2022 7:25 PM CDT [facility] Blood BLOOD SPECIMEN / Unknown 02/22/2023 7:24 PM CDT 02/22/2023 7:25 PM CDT Maxi Gregg MD LAB - POINT OF ARE ORDERABLES Performing Organization Address City/[facility]/ZIP Co de Phone Number [address] [address], [place] [phone] * (ABNORMAL) GLUCOSE - POINT OF CARE (02/22/2023 4:46 PM CDT) Glucose WB/POC 287(H) 70 - 115 mg/dL 02/22/2023 4:50 PM CDT [facility] Specimen Type Cap Fingerstick 2022 4:50 PM CDT [facility] Blood BLOOD SPECIMEN / Unknown 02/22/2023 4:46 PM CDT 02/22/2023 4:50 PM CDT Maxi Gregg MD LAB - POINT OF ARE ORDERABLES Performing Organization Address City/[facility]/ZIP Co de Phone Number [address] [address], [place] [phone] * (ABNORMAL) C-REACTIVE PROTEIN (02/22/2023 3:11 PM CDT) [facility] C-Reactive Protein 4.9(H) <=0.5 mg/dL 02/22/2023 4:33 PM CDT [facility] Blood BLOOD SPECIMEN / Unknown Lab Venipuncture / Unknown 02/22/2023 3:11 PM CDT 02/22/2023 3:34 PM CDT Maxi Gregg MD LAB - CHEMISTRY ORDERABLES Performing Organization Address City/[facility]/ZIP Co de Phone Number [address] [address], [place] [phone] * (ABNORMAL) ERYTHROCYTE SEDIMENTATION RATE (02/22/2023 3:11 PM CDT) Erythrocyte Sedimentation Rate Westergren 87(H) 0 - 30 MM/HR 02/22/2023 4:18 PM CDT [facility] Blood BLOOD SPECIMEN / Unknown Lab Venipuncture / Unknown 02/22/2023 3:11 PM CDT 02/22/2023 3:41 PM CDT Maxi Gregg MD LAB - HEMATOLOGY ORDERABLES [address] [address], [place] [phone] * (ABNORMAL) GLUCOSE - POINT OF CARE (02/22/2023 11:59 AM CDT) Glucose WB/POC 177(H) 70 - 115 mg/dL 02/22/2023 12:03 PM CDT [facility] Specimen Type Cap Fingerstick 2022 12:03 PM CDT [facility] Blood BLOOD SPECIMEN / Unknown 02/22/2023 11:59 AM CDT 02/22/2023 12:03 PM CDT Maxi Gregg MD LAB - POINT OF C ARE ORDERABLES Performing Organization Address City/[facility]/ZIP Co de Phone Number [address] [address], [place] [phone] * CT LUMBAR SPINE W CONTRAST (02/22/2023 [...] Hawkins MD LAB - CHEMISTRY ANGEL SPEARS [address] [address], [facility] [phone] * VANCOMYCIN LEVEL PEAK (02/22/2023 2:46 AM [...] Hawkins MD LAB - CHEMISTRY ORDE RABSIMRAN [facility] [address] [place] [address], [facility] [phone] * CULTURE URINE (02/22/2023 2:41 AM CDT) Culture Urine <10,000 CFU/mL urogenital charla TERRANCE 02/23/2023 12:17 PM CDT [facility] Urine URINE SPECIMEN OBTAINED BY CLEAN CATCH PROCEDURE / Unknown Collection / Unknown 02/22/2023 2:41 AM CDT 02/22/2023 3:19 AM CDT Berenice Hawkins MD LAB - MICROBIOLOGY O RDERABLES Performing Organization Address City/[facility]/ZIP Co de Phone Number [facility] [address] [place] [address], [facility] [phone] * (ABNORMAL) URINE MICROSCOPIC ONLY REFLEX TO CULTURE (02/22/2023 2:41 AM CDT) Reflex Status Culture to follow 02/22/2023 3:19 AM CDT [facility] RBC UA 3-5 None Seen, 0-2, 3-5 /HPF 02/22/2023 3:19 AM CDT [facility] WBC UA 21-50(A) None Seen, 0-5 /HPF 02/22/2023 3:19 AM CDT [facility] Bacteria UA 3+(A) None /HPF 02/22/2023 3:19 AM CDT [facility] Squamous Epithelial Cells UA 0-2 None Seen, 0-2, 3-5 /HPF 02/22/2023 3:19 AM [facility] Mucus UA 1+ /LPF 02/22/2023 3:19 AM [facility] Urine URINE SPECIMEN OBTAINED BY CLEAN CATCH PROCEDURE / Unknown Collection / Unknown 02/22/2023 2:41 AM CDT 02/22/2023 2:53 AM CDT Narrative [facility] - 02/22/2023 3:19 AM CDT Berenice Hawkins MD LAB - URINALYSIS ORD ERABLES [facility] [address] [place] [address], [facility] [phone] * (ABNORMAL) URINALYSIS REFLEX MICROSCOPIC REFLEX CULTURE (02/22/2023 2:41 AM CDT) Color UA Yellow Straw, Yellow 02/22/2023 3:06 AM [facility] Clarity UA t Cloudy(A) Clear 02/22/2023 3:06 AM [facility] Specific [place] UA 1.026 1.005 - 1.030 02/22/2023 3:06 AM [facility] pH UA 5.0 5.0 - 8.0 pH 02/22/2023 3:06 AM [facility] Protein UA Negative Negative 02/22/2023 3:06 AM [facility] Glucose UA 3+(A) Negative 02/22/2023 3:06 AM [facility] Ketone UA Negative Negative 02/22/2023 3:06 AM [facility] Bilirubin UA Negative Negative 02/22/2023 3:06 AM [facility] Blood UA 2+(A) Negative 02/22/2023 3:06 AM [facility] Nitrite UA Positive(A) Negative 02/22/2023 3:06 AM [facility] Leukocyte Esterase 1+(A) Negative 02/22/2023 3:06 AM [facility] Urobilinogen UA Negative Negative mg/dL 02/22/2023 3:06 AM [facility] Urine URINE SPECIMEN OBTAINED BY CLEAN CATCH PROCEDURE / Unknown Collection / Unknown 02/22/2023 2:41 AM CDT 02/22/2023 2:53 AM CDT Narrative [facility] - 02/22/2023 3:06 AM CDT Berenice Hawkins MD LAB - URINALYSIS ORD ERABLES [facility] [address] [place] [address], [facility] [phone] * CT ABDOMEN PELVIS W CONTRAST (02/22/2023 [...] growth day 5 TERRANCE 02/26/2023 10:02 PM [facility] Blood PERIPHERAL BLOOD / Unknown Venipuncture / Unknown 02/21/2023 8:35 PM CDT 02/21/2023 8:38 PM CDT Berenice Hawkins MD LAB - MICROBIOLOGY O [place] Performing Organization Address City/[facility]/ZIP Co de Phone Number [facility] [address] [place] [address], [facility] [phone] * CULTURE BLOOD (02/21/2023 8:20 PM CDT) Culture No growth day 5 TERRANCE 02/26/2023 10:02 PM [facility] Blood PERIPHERAL BLOOD / Unknown Venipuncture / Unknown 02/21/2023 8:20 PM CDT 02/21/2023 8:38 PM CDT Berenice Hawkins MD LAB - MICROBIOLOGY O CAT[place] Performing Organization Address City/[facility]/ZIP Co de Phone Number [facility] [address] [place] [address], [facility] [phone] * TROPONIN-I HIGH SENSITIVE REFLEX 1HOUR (02/21/2023 7:55 PM CDT) Troponin I High Sensitive 3 <=14 ng/L 02/21/2023 8:45 PM CDT [facility] Delta Troponin I HS <0 <6 ng/L 02/21/2023 8:45 PM CDT [facility] Blood BLOOD SPECIMEN / Unknown Venipuncture / Unknown 02/21/2023 7:55 PM CDT 02/21/2023 8:18 PM CDT Berenice Hawkins MD LAB - CHEMISTRY ANGEL SPEARS [facility] [address] [place] [address], [place] [phone] * EKG 12-LEAD (02/21/2023 6:42 PM CDT) [facility] Ventricular Rate 100 BPM [facility] Atrial Rate 100 BPM [facility] P-R Interval 124 ms [facility] QRS Duration ms 76 ms [facility] Q-T Interval ms 340 ms [facility] QTC Calculation (Bezet) 438 ms [facility] Calculated P Gleason -7 degrees [facility] Calculated R Gleason -4 degrees [facility] Calculated T Gleason 30 degrees [facility] Interpretation EKG NORMAL SINUS RHYTHM NONSPECIFIC T WAVE ABNORMALITY ABNORMAL ECG WHEN COMPARED WITH ECG OF 21-FEB-2023 18:36, MANUAL COMPARISON REQUIRED, DATA IS UNCONFIRMED Confirmed by JUAN DE LA PAZ MD ([id number]) on 02/23/2023 6:29:21 PM [facility] 02/21/2023 6:42 PM CDT 02/23/2023 6:29 PM CDT Berenice Hawkins MD ECG ORDERABLES Performing Organization Address City/[facility]/ZIP Co de Phone Number [facility] * TROPONIN-I HIGH SENSITIVE BASELINE + 1HR (02/21/2023 6:30 PM CDT) [facility] Troponin I High Sensitive 4 <=14 ng/L 02/21/2023 7:06 PM CDT [facility] Blood BLOOD SPECIMEN / Unknown Venipuncture / Unknown 02/21/2023 6:30 PM CDT 02/21/2023 6:35 PM CDT Berenice Hawkins MD LAB - CHEMISTRY ANGEL SPEARS [facility] [address] [place] [address], [facility] [phone] * PT-INR [facility] (02/21/2023 6:30 PM CDT) [facility] PT 13.2 12.1 - 14.8 Seconds 02/21/2023 7:10 PM CDT [facility] INR 1.0 See Comment 02/21/2023 7:10 PM CDT [facility] [...] - COAGULATION OR DERABLES Performing Organization Address City/[facility]/ZIP Co de Phone Number [address] [address], [facility] [phone] * LACTIC ACID BLOOD REFLEX TO REPEAT (02/21/2023 6:30 PM CDT) [facility] Lactic Acid-Stat 1.8 <=2.0 mmol/L 02/21/2023 6:56 PM CDT [facility] Blood BLOOD SPECIMEN / Unknown Venipuncture / Unknown 02/21/2023 6:30 PM CDT 02/21/2023 6:35 PM CDT Berenice Hawkins MD LAB - CHEMISTRY ORDE RABLES Performing Organization Address [facility] Co de Phone Number [address] [address], [facility] [phone] * (ABNORMAL) COMPREHENSIVE METABOLIC PANEL (02/21/2023 6:30 PM CDT) [facility] BUN 16 7 - 26 mg/dL 02/21/2023 7:00 PM CDT [facility] Creatinine 0.70 0.56 - 0.96 mg/dL 02/21/2023 7:00 PM CDT [facility] Sodium 137 136 - 145 mmol/L 02/21/2023 7:00 PM T [facility] Potassium 3.9 3.5 - 4.5 mmol/L 02/21/2023 7:00 PM CDT [facility] Chloride 101 98 - 107 mmol/L 02/21/2023 7:00 PM T [facility] CO2 28 22 - 29 mmol/L 02/21/2023 7:00 PM [facility] Glucose 301(H) 70 - 115 mg/dL 02/21/2023 7:00 PM [facility] Calcium 10.4(H) 8.4 - 10.2 mg/dL 02/21/2023 7:00 PM [facility] Protein Total 8.8(H) 6.0 - 8.3 g/dL 02/21/2023 7:00 PM [facility] Albumin 3.6 3.4 - 5.0 g/dL 02/21/2023 7:00 PM [facility] Bilirubin Total 0.7 0.2 - 1.2 mg/dL 02/21/2023 7:00 PM [facility] Alkaline Phosphatase 84 40 - 150 U/L 02/21/2023 7:00 PM [facility] ALT 19 5 - 55 U/L 02/21/2023 7:00 PM [facility] AST 18 5 - 34 U/L 02/21/2023 7:00 PM [facility] Anion Gap 8 6 - 16 02/21/2023 7:00 PM [facility] BUN/Creatinine Ratio 23 7 - 23 02/21/2023 7:00 PM [facility] Osmolality Calculated 296(H) 275 - 295 mOsm/kg 02/21/2023 7:00 PM [facility] Albumin/Globulin Ratio 0.7(L) 1.1 - 2.3 02/21/2023 7:00 PM [facility] eGFR by CKD-EPI >90 >=90 mL/min/1.7 3 m2 02/21/2023 7:00 PM [facility] Blood BLOOD SPECIMEN / Unknown Venipuncture / Unknown 02/21/2023 6:30 PM CDT 02/21/2023 6:35 PM CDT Berenice Hawkins MD LAB - CHEMISTRY ANGEL SPEARS [facility] Organization Address City/State/ZIP Co de Phone Number [facility] [address] [place] [address], [facility] [phone] * (ABNORMAL) CBC W AUTO DIFFERENTIAL (02/21/2023 6:30 PM CDT) WBC 11.6(H) 3.5 - 10.5 10? 3 /uL 02/21/2023 6:57 PM [facility] RBC 4.78 3.80 - 5.20 10? 6 /uL 02/21/2023 6:57 PM [facility] Hemoglobin 13.9 12.0 - 15.6 g/dL 02/21/2023 6:57 PM [facility] Hematocrit 42.8 35.0 - 45.0 % 02/21/2023 6:57 PM [facility] MCV 89.5 80.7 - 98.3 fL 02/21/2023 6:57 PM [facility] MCH 29.1 26.7 - 34.0 pg 02/21/2023 6:57 PM [facility] MCHC 32.5 30.8 - 35.9 g/dL 02/21/2023 6:57 PM [facility] RDW-SD 43.9 36.0 - 50.0 fL 02/21/2023 6:57 PM [facility] RDW-CV 13.3 11.2 - 14.8 % 02/21/2023 6:57 PM [facility] Platelet Count 329 150 - 400 10? 3 /uL 02/21/2023 6:57 PM [facility] MPV 10.0 9.4 - 12.9 fL 02/21/2023 6:57 PM [facility] nRBC Absolute 0.00 0 10? 3 /uL 02/21/2023 6:57 PM [facility] nRBC Auto 0.0 0 /100 WBC 02/21/2023 6:57 PM [facility] Neutrophils % 65.4 35.0 - 70.0 % 02/21/2023 6:57 PM [facility] Lymphocytes % 23.3 20.0 - 43.0 % 02/21/2023 6:57 PM [facility] Monocytes % 6.3 5.0 - 13.0 % 02/21/2023 6:57 PM [facility] Eosinophils % 4.3 0.0 - 6.0 % 02/21/2023 6:57 PM CDT [facility] Basophil % 0.3 0.0 - 2.0 % 02/21/2023 6:57 PM CDT [facility] Neutrophils Absolute 7.60(H) 1.60 - 7.00 10? 3 /uL 02/21/2023 6:57 PM CDT [facility] Lymphocyte Absolute 2.71 1.10 - 3.90 10? 3 /uL 02/21/2023 6:57 PM CDT [facility] Monocytes Absolute 0.73 0.26 - 1.07 10? 3 /uL 02/21/2023 6:57 PM CDT [facility] Eosinophils Absolute 0.50(H) 0.00 - 0.47 10? 3 /uL 02/21/2023 6:57 PM CDT [facility] Basophils Absolute 0.04 0.00 - 0.08 10? 3 /uL 02/21/2023 6:57 PM CDT [facility] Immature Granulocytes % 0.4 0.0 - 1.0 % 02/21/2023 6:57 PM CDT [facility] Immature Granulocytes Absolute 0.05 02/21/2023 6:57 PM CDT [facility] Blood BLOOD SPECIMEN / Unknown Venipuncture / Unknown 02/21/2023 6:30 PM CDT 02/21/2023 6:35 PM CDT Berenice Hawkins MD LAB - HEMATOLOGY ORD ERABLES [facility] [address] [place] [address], [facility] [phone] * HEPATITIS C AB SCREEN RFLX NAAT QUANT (02/21/2023 6:30 PM CDT) Hepatitis C Antibody Non-react hugh Non-reac tive 02/21/2023 7:32 PM CDT [facility] Comment:Hepatitis C Antibody screen indicates no [...] Solitario MD LAB - CHEMISTRY ANGEL SPEARS [facility] [address] [place] [address], [facility] [phone] documented in this encounter Visit Diagnoses Diagnosis [...] 8 hours. $ Given 02/26/2023 2:32 PM [facility]UROSURG[facility] SPINE PHYSICIAN 3 mL $ Given 02/25/2023 1:44 PM [...] Until Discontinued $ Given 02/26/2023 1:14 PM NEUROSURGERY SPINE PHYSICIAN 7,500 Units Abdominal Tissue $ Given 02/25/2023 8:12 PM CDT 7,500 Units A bdominal Tissue $ Given 02/25/2023 1:46 PM CDT 7,500 Units A bd Left Lower Quadrant HYDROcodone-acetaminophen ([place]) 10-325 MG tablet 1 tablet 1 tablet, [...] the MAR. $ Given 02/26/2023 1:11 PM NEUROSURGERY SPINE PHYSICIAN 1 tablet $ Given 02/25/2023 9:43 PM CDT 1 tablet $ Given 02/25/2023 4:12 PM CDT 1 tablet HYDROcodone-acetaminophen ([place]) 5-325 MG tablet 1 tablet 1 tablet, [...] the incision $ Given 02/26/2023 9:44 AM NEUROSURGERY SPINE PHYSICIAN $ Given 02/25/2023 8:14 PM CDT $ [...] the MAR. $ Given 02/26/2023 6:43 AM NEUROSURGERY SPINE PHYSICIAN 0.5 m g $ Given 02/26/2023 2:12 AM NEUROSURGERY SPINE PHYSICIAN 0.5 mg $ Given 02/25/2023 11:13 PM [...] same time. $ Given 02/26/2023 12:51 PM NEUROSURGERY SPINE PHYSICIAN 9 Units Righ t Arm $ Given 02/26/2023 9:44 AM NEUROSURGERY SPINE PHYSICIAN 3 Units Ab dominal Tissue $ Given [...] Until Discontinued $ Given 02/26/2023 8:55 AM NEUROSURGERY SPINE PHYSICIAN 50 mg $ Given 02/25/2023 9:21 AM [...] incision sites $ Given 02/26/2023 9:44 AM NEUROSURGERY SPINE PHYSICIAN $ Given 02/25/2023 8:14 PM CDT $ Given 02/25/2023 9:23 AM CDT nystatin (Mycostatin) powder Topical, 3 TIMES DAILY, First dose on Mon02/24/23 at 0900, Until Discontinued, Apply to intertrigenous areas of abdominal skin folds $ Given 02/26/2023 1:12 PM NEUROSURGERY SPINE PHYSICIAN $ Given 02/26/2023 9:46 AM NEUROSURGERY SPINE PHYSICIAN $ Given 02/25/2023 1:45 PM CDT rOPINIRole [...] Until Discontinued $ Given 02/26/2023 8:55 AM NEUROSURGERY SPINE PHYSICIAN 2 mg $ Given 02/25/2023 8:13 PM [...] may contain times in both CDT and NEUROSURGERY SPINE PHYSICIAN. Scheduled Medication Order 02/24/2023 02/25/2023 02/26/2023 0.9% [...] 2012 ($ Given - Provider: Yeni Sloan, NURIS) tolterodine (Detrol) tablet 2 mg 2 mg, [...] Access, Starting on Mon02/22/23 at 0853, Until Watkins 02/26/23 at 1633, If NOT able to [...] Itching, Starting on Mon02/22/23 at 1934, Until Watkins 02/26/23 at 1633, Second line for itching glucagon (Glucagen) injection 1 mg(Linked Group 2) 1 mg, Subcutaneous, PRN, Bedside Glucose less than 70 mg/dL - If NOT able to eat and/or NPO and withOUT IV Access, Starting on Mon02/22/23 at 0853, Until Watkins 02/26/23 at 1633, If NOT able to [...] choices). NOTIFY PROVIDER OF HYPOGLYCEMIC EVENT. HYDROcodone-acetaminophen ([place]) 10-325 MG tablet 1 tablet 1 tablet, [...] Given - Provider: Chino Vera RN) HYDROcodone-acetaminophen ([place]) 5-325 MG tablet 1 tablet 1 tablet, [...] Wang RN) 2012 ($ Given - Provider: Yein Sloan RN) methocarbamol (Robaxin) tablet 500 mg [...] Access, Starting on Mon02/22/23 at 0853, Until Watkins 02/26/23 at 1633, If NOT able to [...] Access, Starting on Mon02/22/23 at 0853, Until Watkins 02/26/23 at 1633, If NOT able to [...] EVENT. documented in this encounter Care Teams Billiard Table Mechanic Relationship Specialty Start Date End Date Justen Gale MD PCP - General 07/05/21 documented as of this encounter
--- OUTSIDE RECORDS SUMMARY | 2024-04-26 06:53 | XMS_ITS | Encounter Summary ---
Author Organization [facility] Address [address] [facility] [place] [address] Care Team Providers Care Advertisement Distributor Name Role Phone Justen Gale MD Primary Care Provider [phone] Reason for Visit * Reason Comments Chest [...] CDT - 02/18/2023 8:14 AM CDT Emergency [facility] EMERGENCY DEPARTMENT [address] [place] [phone] Cal Alicea MD [address] [place] [address] DIV OF EMERGENCY MEDICINE [place], [place] Roger Snowden MD [address] [place] [address] [place] [address] Chest pain, unspecified type (Primary Dx); Post-op [...] and heating? Not hard at all 12/23/2022 [facility] - Occupational Stress [...] slept in a correction (including now)? No 12/23/2022 Sex and Gender [...] mouth once daily 07/17/2022 05/19/2023 HYDROcodone-acetaminoph en (Kilmichael) 10-325 MG tablet Take 1 (one) tablet [...] and back pain since undergoing surgery at [facility] yesterday. States that she underwent spinal stimulator [...] No Stress: No Stress Concern Present (12/23/2022) [facility] - Occupational Stress Questionnaire [...] nursing note reviewed. Exam conducted with a enamel finisher present. Constitutional: General: She is not in [...] mL Intravenous $ Given - Contrast 02/18/23 1146) HYDROmorphone (Dilaudid) injection 0.5 mg (0.5 mg Intravenous $ Given 02/18/23 3112) HYDROmorphone (Dilaudid) injection 0.5 mg (0.5 mg Intravenous $ Given 02/18/23 4911) Procedures ED COURSE Patient seen and evaluated, [...] No Stress: No Stress Concern Present (12/23/2022) [facility] - Occupational Stress Questionnaire [...] RN - 02/18/2023 1:09 AM CDT Bed: [facility] Expected date: Expected time: Means of arrival: Comments: Agustin * Larissa De Dios RN - 02/17/2023 5:06 PM CDT Patient [...] from the original note were not included. [id number] Managing Post-Op Pain at Home: Medicines Pain [...] with your healthcare provider before taking any janl-cxm-aktlyvn (OTC) pain reliever in addition to or [...] pain medicine Last Reviewed Date: 2021 ?? [id number] [employer]. All rights reserved. This information is not [...] malacia. > Dictated by Alvarez Sanderson MD (physician vice president). I, Gume Bell MD have personally reviewed and interpreted this examination/study. > Interpreting Provider: Gume Bell MD on 02/18/2023 8:48 AM Narrative 02/18/2023 8:48 AM CDT PROCEDURE: ??CT CHEST PE W ABD PELVIS W CONT, DATE/TIME OF EXAM: ??02/18/2023 4:04 AM, LOCATION ??[facility] INDICATION: G89.18: Post-op pain R07.9: Chest [...] CONT, DATE/TIME OF EXAM:02/18/2023 4:04 AM, LOCATION [facility] INDICATION: G89.18: Post-op pain R07.9: Chest [...] malacia. > Dictated by Alvarez Sanderson MD (physician vice president). I, Gume Bell MD have personally reviewed and interpreted this examination/study. > Interpreting Provider: Gume Bell MD on 02/18/2023 8:48 AM Cal [address]a MD CT ORDERABLES * TROPONIN-I HIGH SENSITIVE REFLEX 1HOUR (02/17/2023 8:03 PM CDT) Troponin I High Sensitive 4 <=14 ng/L 02/17/2023 9:17 PM CDT [facility] Delta Troponin I HS 1 <6 ng/L 02/17/2023 9:17 PM CDT [facility] Blood BLOOD SPECIMEN / Unknown Venipuncture / Unknown 02/17/2023 8:03 PM CDT 02/17/2023 8:12 PM CDT Cal Alicea MD LAB - CHEMISTRY ANGEL SPEARS [facility] [address] [place] [address], [facility] [phone] * XR CHEST 1VW PORTABLE (02/17/2023 7:58 PM CDT) Anatomical Region Laterality Modality Chest Radiographic Lizeth ging 02/17/2023 8:07 PM CDT Narrative 02/20/2023 10:54 AM CDT PROCEDURE: ??XR CHEST 1VW PORTABLE, DATE/TIME OF EXAM: ??02/17/2023 7:59 PM, LOCATION ??[facility] INDICATION: G89.18: Post-op pain ADDITIONAL CLINICAL INFORMATION: Ordering Provider Reason For Exam: ??chest pain COMPARISON: Chest x-ray dated 11/11/2021. FINDINGS/IMPRESSION: There are interstitial opacities compatible with pulmonary edema or possibly interstitial pneumonia. No pleural effusion or pneumothorax. Report dictated by Alvarez Sanderson MD (physician vice president). Kirit Perez MD have personally reviewed and interpreted this examination/study. > Interpreting Provider: Kirit Phillips MD on 02/20/2023 10:54 AM Procedure Note Kirit Phillips MD - 02/20/2023 PROCEDURE: XR CHEST 1VW PORTABLE, DATE/TIME OF EXAM: 02/17/2023 7:59PM, LOCATION [facility] INDICATION: G89.18: Post-op pain ADDITIONAL CLINICAL INFORMATION: Ordering Provider Reason For Exam: chest pain COMPARISON: Chest x-ray dated 11/11/2021. FINDINGS/IMPRESSION: There are interstitial opacities compatible with pulmonary edema or possibly interstitial pneumonia. No pleural effusion or pneumothorax. Report dictated by Alvarez Sanderson MD (physician vice president). Kirit Perez MD have personally reviewed and interpreted this examination/study. > Interpreting Provider: Kirit Phillips MD on 02/20/2023 10:54 AM Cal Alicea MD DIAGNOSTIC IMAGING O RDERABLES * PT-INR [facility] (02/17/2023 6:38 PM CDT) PT 12.7 12.1 - 14.8 Seconds 02/17/2023 7:29 PM CDT [facility] INR 1.0 See Comment 02/17/2023 7:29 PM CDT [facility] [...] - COAGULATION OR DERABLES Performing Organization Address City/State/[facility] Co de Phone Number [facility] [address] [place] [phone], [facility] [phone] * (ABNORMAL) COMPREHENSIVE METABOLIC PANEL (02/17/2023 6:38 PM CDT) Pathologist [facility] BUN 21 7 - 26 mg/dL 02/17/2023 7:14 PM T [facility] Creatinine 0.77 0.56 - 0.96 mg/dL 02/17/2023 7:14 PM [facility] Sodium 137 136 - 145 mmol/L 02/17/2023 7:14 PM T [facility] Potassium 3.7 3.5 - 4.5 mmol/L 02/17/2023 7:14 PM [facility] Chloride 100 98 - 107 mmol/L 02/17/2023 7:14 PM [facility] CO2 24 22 - 29 mmol/L 02/17/2023 7:14 PM [facility] Glucose 290(H) 70 - 115 mg/dL 02/17/2023 7:14 PM T [facility] Calcium 9.7 8.4 - 10.2 mg/dL 02/17/2023 7:14 PM [facility] Protein Total 8.9(H) 6.0 - 8.3 g/dL 02/17/2023 7:14 PM [facility] Albumin 3.6 3.4 - 5.0 g/dL 02/17/2023 7:14 PM [facility] Bilirubin Total 0.4 0.2 - 1.2 mg/dL 02/17/2023 7:14 PM [facility] Alkaline Phosphatase 76 40 - 150 U/L 02/17/2023 7:14 PM [facility] ALT 18 5 - 55 U/L 02/17/2023 7:14 PM [facility] AST 19 5 - 34 U/L 02/17/2023 7:14 PM [facility] Anion Gap 13 6 - 16 02/17/2023 7:14 PM [facility] BUN/Creatinine Ratio 27(H) 7 - 23 02/17/2023 7:14 PM [facility] Osmolality Calculated 298(H) 275 - 295 mOsm/kg 02/17/2023 7:14 PM [facility] Albumin/Globulin Ratio 0.7(L) 1.1 - 2.3 02/17/2023 7:14 PM [facility] eGFR by CKD-EPI 85(L) >=90 mL/min/1.7 3 m2 02/17/2023 7:14 PM [facility] Blood BLOOD SPECIMEN / Unknown Venipuncture / Unknown 02/17/2023 6:38 PM CDT 02/17/2023 6:46 PM CDT Cal Alicea MD LAB - CHEMISTRY ANGEL SPEARS [facility] Organization Address City/State/ZIP Co de Phone Number [facility] [address] [place] [phone], [facility] [phone] * (ABNORMAL) CBC W AUTO DIFFERENTIAL (02/17/2023 6:38 PM CDT) WBC 14.9(H) 3.5 - 10.5 10? 3 /uL 02/17/2023 6:56 PM [facility] RBC 4.74 3.80 - 5.20 10? 6 /uL 02/17/2023 6:56 PM [facility] Hemoglobin 13.5 12.0 - 15.6 g/dL 02/17/2023 6:56 PM [facility] Hematocrit 42.8 35.0 - 45.0 % 02/17/2023 6:56 PM [facility] MCV 90.3 80.7 - 98.3 fL 02/17/2023 6:56 PM [facility] MCH 28.5 26.7 - 34.0 pg 02/17/2023 6:56 PM [facility] MCHC 31.5 30.8 - 35.9 g/dL 02/17/2023 6:56 PM [facility] RDW-SD 44.9 36.0 - 50.0 fL 02/17/2023 6:56 PM [facility] RDW-CV 13.5 11.2 - 14.8 % 02/17/2023 6:56 PM [facility] Platelet Count 311 150 - 400 10? 3 /uL 02/17/2023 6:56 PM [facility] MPV 9.9 9.4 - 12.9 fL 02/17/2023 6:56 PM [facility] nRBC Absolute 0.00 0 10? 3 /uL 02/17/2023 6:56 PM [facility] nRBC Auto 0.0 0 /100 WBC 02/17/2023 6:56 PM [facility] Neutrophils % 68.9 35.0 - 70.0 % 02/17/2023 6:56 PM [facility] Lymphocytes % 22.1 20.0 - 43.0 % 02/17/2023 6:56 PM [facility] Monocytes % 7.9 5.0 - 13.0 % 02/17/2023 6:56 PM [facility] Eosinophils % 0.3 0.0 - 6.0 % 02/17/2023 6:56 PM [facility] Basophil % 0.3 0.0 - 2.0 % 02/17/2023 6:56 PM CDT [facility] Neutrophils Absolute 10.27(H) 1.60 - 7.00 10? 3 /uL 02/17/2023 6:56 PM CDT [facility] Lymphocyte Absolute 3.30 1.10 - 3.90 10? 3 /uL 02/17/2023 6:56 PM CDT [facility] Monocytes Absolute 1.18(H) 0.26 - 1.07 10? 3 /uL 02/17/2023 6:56 PM CDT [facility] Eosinophils Absolute 0.04 0.00 - 0.47 10? 3 /uL 02/17/2023 6:56 PM CDT [facility] Basophils Absolute 0.05 0.00 - 0.08 10? 3 /uL 02/17/2023 6:56 PM CDT [facility] Immature Granulocytes % 0.5 0.0 - 1.0 % 02/17/2023 6:56 PM CDT [facility] Immature Granulocytes Absolute 0.07 02/17/2023 6:56 PM CDT [facility] Blood BLOOD SPECIMEN / Unknown Venipuncture / Unknown 02/17/2023 6:38 PM CDT 02/17/2023 6:41 PM CDT Cal Alicea MD LAB - HEMATOLOGY ORD [place]GR[place] [address] [address], [place] [phone] * TROPONIN-I HIGH SENSITIVE BASELINE + 1HR (02/17/2023 6:38 PM CDT) Troponin I High Sensitive <3 <=14 ng/L 02/17/2023 7:19 PM CDT [facility] Blood BLOOD SPECIMEN / Unknown Venipuncture / Unknown 02/17/2023 6:38 PM CDT 02/17/2023 6:46 PM CDT Cal Alicea MD LAB - CHEMISTRY ORDNicholas SPEARS [address] [address], [place] [phone] * EKG 12-LEAD (02/17/2023 6:25 PM CDT) Ventricular Rate 94 BPM [facility] MUSE Atrial Rate 94 BPM [facility] M[facility] P-R Interval 126 ms [facility] QRS Duration ms 88 ms [facility] Q-T Interval ms 380 ms [facility] QTC Calculation (Bezet) 475 ms [facility]USE Calculated P [place] 13 degrees [facility]USE Calculated R [place] 6 degrees [facility] MUSE Calculated T [place] 50 degrees [facility] Interpretation EKG UNDETERMINED RHYTHM NONSPECIFIC T WAVE ABNORMALITY PROLONGED QT ABNORMAL ECG WHEN COMPARED WITH ECG OF 11-NOV-2021 17:24, T WAVE INVERSION NOW EVIDENT IN ANTERIOR LEADS QT HAS LENGTHENED Confirmed by JUAN DE LA PAZ MD ([id number]) on 02/23/2023 6:25:04 PM [facility] MUSE 02/17/2023 6:25 PM CDT 02/23/2023 6:25 PM CDT Cal Alicea MD ECG ORDERABLES [facility] documented in this encounter Visit Diagnoses Diagnosis [...] patency. documented in this encounter Care Teams Advertisement Distributor Relationship Specialty Start Date End Date Justen Gale MD PCP - General 07/05/21 documented as of this encounter
--- OUTSIDE RECORDS SUMMARY | 2024-04-26 06:53 | XMS_ITS | Encounter Summary ---
Author Organization [facility] Address [address] [facility] [place] [address] Care Team Providers Care Assistant Scientist Name Role Phone Justen Gale MD Primary Care Provider [phone] Reason for Visit * Reason Comments Low [...] Expiration Date Visits Re quested Visits Authorized [id number] 1 1 Encounter Details Date Type Department Care Team (Latest Contact Info) Description 05/15/2023 8:48 PM SALES SERVICE SUPERVISOR - 05/20/2023 6:16 PM SALES SERVICE SUPERVISOR Hospital Encounter [facility] [address] [place] [address] [place] [address] [place] [address] [place] [address] [place] [address] Mary Velasquez MD [address] [address] Anne Marie Poole MD [address] [facility] [address] [place] [phone] Internal Medicine Discharge Disposition: Home or Self [...] medical care, and heating? Somewhat hard 05/16/2023 [facility] - Occupational [...] Comments Blood Pressure 116/77 05/20/2023 3:04 PM SALES SERVICE SUPERVISOR Pulse 80 05/20/2023 3:04 PM SALES SERVICE SUPERVISOR Temperature 36.5 ??C (97.7 ??F) 05/20/2023 3:04 PM CS T Respiratory Rate 18 05/20/2023 3:04 PM SALES SERVICE SUPERVISOR Oxygen Saturation 98% 05/20/2023 3:04 PM SALES SERVICE SUPERVISOR Inhaled Oxygen Concentration 21% 10:14 PM SALES SERVICE SUPERVISOR Weight 120.1 kg (264 lb 12.8 oz) 05/16/2023 5:08 PM SALES SERVICE SUPERVISOR Height 154.9 cm (5' 1 ) 05/16/2023 5:08 PM SALES SERVICE SUPERVISOR Body Mass Index 50.03 05/16/2023 5:08 PM SALES SERVICE SUPERVISOR documented in this encounter Functional Status Functional [...] HYDROcodone-acetaminophen 10-325 MG tablet Commonly known as: Mansfield Quantity Dispensed: 12 tablet Take 1 (one) [...] TABLET BY MOUTH TWICE DAILY Opal Orellana, NURSING PROJECT COORDINATOR-SWAGE TENDER Multivitamin Womens 50+ Adv Tabs Take 1 tablet by mouth once daily ONETOUCH DELICA PLUS 33G EXTRA FINE LANCET USE FOUR TIMES DAILY OneTouch Ultra test strip Generic drug: blood glucose 4 times daily oxyBUTYnin CR 24hr 15 MG tablet Commonly known as: Ditropan XL Quantity Dispensed: 90 tablet Take 1 (one) tablet by mouth once daily Opal Montero Esteban, NURSING PROJECT COORDINATOR-SWAGE TENDER rivaroxaban 20 MG tablet Commonly known as: [...] and or POA/family. Anne Marie Poole MD S SERVICE SUPERVISOR documented in this encounter Discharge Instructions * Discharge Instructions* Melly Banks APRN-CNP - 05/19/2023 10:56 AM SALES SERVICE SUPERVISOR Neurosurgery Spine Follow Up: You will need to obtain a nerve conduction study test prior to an appointment with Dr. Gregg. An order for this test has been placed and you should be contacted to schedule this test. However, you may call [phone] to schedule the test yourself. Once the test has been scheduled, please call [phone] to schedule an appointment with Dr. Gregg S SERVICE SUPERVISOR documented in this encounter Medications at Time [...] Reasons: for restless legs 06/05/2023 HYDROcodone-acetaminoph en (Mansfield) 10-325 MG tabletIndications:Chron ic left-sided low back [...] I for transfers with [facility] Outcome: Progressing S SERVICE SUPERVISOR * Loree Reina, Graduate Nurse - 05/19/2023 [...] found in the flowsheet documentation) Outcome: Progressing S SERVICE SUPERVISOR * Anne Marie Poole MD - 05/19/2023 [...] Anne Marie Poole MD 05/19/2023 2:00 PM S SERVICE SUPERVISOR * Indigo Holguin [facility] - 05/19/2023 1:49 PM CST [facility] Pharmacy Services Admission Medication Review Karly Marques is a 67 year old female I have reviewed patient's home medication list with Lila Brizuela PharmD. Information obtained from [facility] fill history and confirmed with patient at [...] prescriptions at discharge to be sent to [facility] pharmacy in [place]. Prior to Admission medications Taking? Last Dose [...] daily before meals 05/15/2023 at AM HYDROcodone-acetaminophen (Mansfield) 10-325 MG tablet Take 1 (one) tablet [...] part of Karly Marques's care. Indigo Holguin, commercial horticulture instructor S SERVICE SUPERVISOR Associated attestation - Lila Brizuela PharmD - 05/19/2023 1:54 PM SALES SERVICE SUPERVISOR I was present during the patient interview [...] often is assistance provided?: daughter is her roll scale worker and assists with dressing, bathing,and IADLs [...] on observation and clinical judgement): Feeding: Complete [place] Oral Facial Hygiene: Set-up (seated) Upper Body [...] serves as the discharge summary Ascom [phone] S SERVICE SUPERVISOR * Kathryn Valencia, PT - 05/19/2023 1:27 [...] often is assistance provided?: daughter is her roll scale worker and assists with dressing, bathing,and IADLs [...] the discharge summary. IQRA Peralta x [phone] S SERVICE SUPERVISOR * Melly Banks APRN-SWAGE TENDER - 05/19/2023 9:44 AM CST Neurosurgery Progress [...] GERD, DM and LUL, who presented to [place] ED on 05/16/23 w/ c/o acute on [...] Dr. Gregg in 02/13) who presented to [place] ED on 05/15/23 w/ c/o acute on chronic low back pain??which radiates down her left leg??for 3 days. Associated with weakness and heaviness to left leg as well. Neurologically, she has minor weakness to her left hip flexor which may be related to pain. Her incisions are completely healed without evidence of infection. The??stimulator rep (Vapotherm) has been contacted to make adjustments to [...] this. Discussed with attending, Dr. Marysol Banks, NURSING PROJECT COORDINATOR-SWAGE TENDER 9:44 AM 05/19/23 Ascom Pager S SERVICE SUPERVISOR * Haydee Valadez RN - 05/19/2023 6:05 AM CST Problem: Pain/Discomfort Goal: Patient exhibits reduced pain/discomfort as evidenced by pain scores Outcome: Progressing Goal: Patient uses pharmacological and non-pharmacological pain management strategies. Outcome: Progressing Goal: Patient verbalizes acceptable level of pain relief and ability to engage in desired activity. Outcome: Progressing S SERVICE SUPERVISOR * Rosa Fuentes RN - 05/18/2023 6:20 [...] found in the flowsheet documentation) Outcome: Progressing S SERVICE SUPERVISOR * Tamika Funez RN - 05/18/2023 5:48 PM CST This RN was present for all medication administration and assessments performed by Rosa, the orienting RN, today. S SERVICE SUPERVISOR * Jamie Lake MD - 05/18/2023 11:01 [...] stimulator -??continue pain regimen with home dose Mansfield 10 q.6 p.r.n. for severe pain, p.r.n. [...] by me on 05/18 at around 0940 S SERVICE SUPERVISOR * Melly Banks, ZAMZAM-SWAGE TENDER - 05/18/2023 7:17 AM CST Neurosurgery Progress [...] GERD, DM and LUL, who presented to [place] ED on 05/16/23 w/ c/o acute on [...] (Diabetic Use) oral gel, Oral, PRN HYDROcodone-acetaminophen (Mansfield) 10-325 MG tablet 1 tablet, Oral, q6h [...] Dr. Gregg in 02/13) who presented to [place] ED on 05/15/23 w/ c/o acute on chronic low back pain??which radiates down her left leg??for 3 days. Associated with weakness and heaviness to left leg as well. Neurologically, she has minor weakness to her left hip flexor which may be related to pain. Her incisions are completely healed without evidence of infection. The??stimulator rep (Vapotherm) has been contacted to make adjustments to [...] team?? Discussed with attending, Dr. Marysol Banks, ZAMZAM-SWAGE TENDER 7:17 AM 05/18/23 Ascom Pager S SERVICE SUPERVISOR * Gabbie Abebe RN - 05/18/2023 6:42 AM CST Problem: Fall Risk Goal: Fall risk and fall related injury risk are minimized (interventions related to the fall risk can be found in the flowsheet documentation) Outcome: Progressing S SERVICE SUPERVISOR * Stephenie Alvarez RN - 05/17/2023 1:12 [...] Information Primary Emergency Contact: Jimmie Marques Address: [address] [place] [address] [place] [address] Relation: Spouse Secondary Emergency Contact: Yunior Velez Mobile Relation: Daughter Transportation at Discharge: Family (daughter): READMISSION RISK SCORE is 27 at 1:12 PM 05/17/2023.: Name: Stephenie Alvarez RN S SERVICE SUPERVISOR * Jamie Lake MD - 05/17/2023 9:50 [...] stimulator -??continue pain regimen with home dose Mansfield 10 q.6 p.r.n. for severe pain, p.r.n. [...] by me on 05/17 at around 1020 S SERVICE SUPERVISOR * Melly Banks, ZAMZAM-SWAGE TENDER - 05/17/2023 9:31 AM CST Neurosurgery Progress [...] GERD, DM and LUL, who presented to [place] ED on 05/16/23 w/ c/o acute on [...] Use) oral gel, Oral, PRN ?? HYDROcodone-acetaminophen (Mansfield) 10-325 MG tablet 1 tablet, Oral, q6h [...] Dr. Gregg in 02/13) who presented to [place] ED on 05/15/23 w/ c/o acute on chronic low back pain??which radiates down her left leg??for 3 days. Associated with weakness and heaviness to left leg as well. Neurologically, she has minor weakness to her left hip flexor which may be related to pain. Her incisions are completely healed without evidence of infection. The??stimulator rep (Vapotherm) has been contacted to make adjustments to [...] team?? Discussed with attending, Dr. Marysol Banks, ZAMZAM-SWAGE TENDER 9:31 AM 05/17/23 Ascom Pager S SERVICE SUPERVISOR * Gil Pacheco RD/SARA - 05/17/2023 9:03 [...] order for MNT (Medical Nutrition Therapy) (Ambulatory [id number] in Epic). MNT is a covered Medicare benefit for diabetes and renal disease. Other insurance coverage varies, patients should check with their insurance providers to verify coverage. Gil De Los Santos MS, RD/LD Ascom [phone] S SERVICE SUPERVISOR * Jayson Nguyen RN - 05/17/2023 12:52 AM CST Problem: Pain/Discomfort Goal: Patient exhibits reduced pain/discomfort as evidenced by pain scores Outcome: Progressing Goal: Patient uses pharmacological and non-pharmacological pain management strategies. Outcome: Progressing Goal: Patient verbalizes acceptable level of pain relief and ability to engage in desired activity. Outcome: Progressing S SERVICE SUPERVISOR * Loree Reina Graduate Nurse - 05/16/2023 [...] found in the flowsheet documentation) Outcome: Progressing S SERVICE SUPERVISOR * Loree Reina Graduate Nurse - 05/16/2023 6:31 PM CST Images from the original note were not included. Patient transported to [facility] [place]. Admission assessment completed by [...] Requires Assistance With: Mobility;Housekeeping;Shopping;Meal Preparation;Hygiene Preferred Pharmacy: [facility] #[id number] - [address] [place] [address] [address] [place] [address] READMISSION RISK SCORE is N/A at 3:31 PM 05/16/2023. Family Support (name and phone): Extended Emergency Contact Information Primary Emergency Contact: Jimmie Marques Address: [address] [place] [address] [place] [address] [place] Relation: Spouse Secondary Emergency Contact: Yunior Velez Mobile Relation: Daughter Patient or field representative/health education requests care coordination reach out to family or caregiver listed above regarding discharge planning and at time of discharge? No Patient/Family provided with list of resources? Unknown Preferred Provider / High Quality Network List given?: Unknown Reason for provider choice: Unknown Equipment at Home: CPAP;Cane-Straight;Chair-Shower;Commode-Bedside;Hand Held Shower;Grab Bars;BloodPressure Cuff;Blood Glucose Monitor;Walker-2 Wheeled List DME pt. requires but does not have.: None Club Room Attendant Referral: No Will continue to follow. For any questions or needs please contact: Irrigation District Manager Name/Phone number: Zoey Watters RN [phone] S SERVICE SUPERVISOR * Jamie Lake MD - 05/16/2023 10:10 AM CST Non billable rounding Please refer to H&P for details Communicated with Melly MRI ordered Lives with daughter Able to ambulate without assistance at baseline Patient was seen by me on 05/16 at around 1355 S SERVICE SUPERVISOR documented in this encounter H&P Notes * Mary Velasquez MD - 05/16/2023 12:01 AM CST [facility] Hospitalist History & Physical [facility] Please be advised that voice recognition [...] results for input(s): LACTICACID in the last [id number] hours. Recent Labs Component Name 02/21/23 1830 [...] - continue pain regimen with home dose Mansfield 10 q.6 p.r.n. for severe pain, p.r.n. [...] - nandini Velasquez MD 05/16/2023 12:12 AM S SERVICE SUPERVISOR documented in this encounter Consult Notes * Melly Banks APRN-SWAGE TENDER - 05/16/2023 9:42 AM CSTAssociated Order(s): IP [...] 02/13), DVT/PE (on Xarelto), GERD, DM and LLU, who presented to [place] ED on 05/16/23 w/ c/o acute on [...] Medical History: Diagnosis Date ??? Breast cancer ([facility]) ??? Chest pain ??? DVT (deep venous thrombosis) ([facility]) ??? GERD (gastroesophageal reflux disease) ??? LUL (obstructive sleep apnea) w cpap ??? Other pulmonary embolism without acute cor pulmonale ([facility]) ??? rls ??? Type 2 diabetes mellitus without complications ([facility]) Past Surgical History: Procedure Laterality [...] (one) capsule by mouth once daily HYDROcodone-acetaminophen (Mansfield) 10-325 MG tablet Take 1 (one) tablet [...] hydroCHLOROthiazide (Hydrodiuril) tablet 25 mg ??? HYDROcodone-acetaminophen (Mansfield) 10-325 MG tablet 1 tablet ??? insulin [...] hydroCHLOROthiazide (Microzide) 12.5 MG capsule ??? HYDROcodone-acetaminophen (Mansfield) 10-325 MG tablet ??? hydrOXYzine HCl (Atarax) [...] Dr. Gregg in 02/13) who presented to [place] ED on 05/15/23 w/ c/o acute on chronic low back pain which radiates down her left leg for 3 days. Associated with weakness and heaviness to left leg as well. Neurologically, she has minor weakness to her left hip flexor which may be related to pain. Her incisions are completely healed without evidence of infection. The stimulator rep (Vapotherm) has been contacted to make adjustments to [...] be discussed with attending, Dr. Marysol Banks, NURSING PROJECT COORDINATOR-SWAGE TENDER 05/16/2023 9:42 AM Ascom Pager S SERVICE SUPERVISOR documented in this encounter ED Notes * Isa Morales RN - 05/16/2023 4:29 AM CST Pt stated she has trouble sleeping due to her sleep apnea and sleeping with out her CPAP. 2L of O2 applied for comfort for pt. Oxygen saturation 97%. S SERVICE SUPERVISOR * Giovanni Oliveros RN - 05/15/2023 10:44 PM CST Pt states pain down to 5/10. Pt able to move L leg more than before pain control, but L leg continues to be weaker as compared to R leg. Dr. Hartley notified via telephone. S SERVICE SUPERVISOR * Giovanni Oliveros RN - 05/15/2023 10:20 PM CST Pt placed on purewick for collection of urine. S SERVICE SUPERVISOR * Emily Felix MD - 05/15/2023 9:48 PM CST ED Events Date/Time Event User Comments 05/15/23 7263 First Provider Evaluation HELLEN LOGAN -- Karly Marques [id number] [facility] EMERGENCY DEPARTMENT History Chief Complaint Patient presents [...] Medical History: Diagnosis Date ??? Breast cancer ([facility]) ??? Chest pain ??? DVT (deep venous thrombosis) ([facility]) ??? GERD (gastroesophageal reflux disease) ??? LUL (obstructive sleep apnea) w cpap ??? Other pulmonary embolism without acute cor pulmonale ([facility]) ??? rls ??? Type 2 diabetes mellitus without complications ([facility]) Past Surgical History: Procedure Laterality [...] No Stress: No Stress Concern Present (02/22/2023) [facility] - Occupational Stress Questionnaire [...] capsule by mouth once daily ??? HYDROcodone-acetaminophen (Mansfield) 10-325 MG tablet Take 1 (one) tablet [...] mg ??? ondansetron (Zofran) injection 4 mg S SERVICE SUPERVISOR * Isa Morales RN - 05/15/2023 8:54 PM CST Pt presents to the ED with left lower back pain. Rates pain 10/10 that is stabbing and aching. Pt states she had a back pain stimulator placed at the end of January. Pt states the pain started yesterday. S SERVICE SUPERVISOR documented in this encounter Miscellaneous Notes [...] A PERMANENT PART OF THE MEDICAL RECORD. S SERVICE SUPERVISOR documented in this encounter Plan [...] POINT OF CARE Routine 05/20/2023 11:32 AM SALES SERVICE SUPERVISOR GLUCOSE - POINT OF CARE Routine 05/20/2023 8:16 AM SALES SERVICE SUPERVISOR GLUCOSE - POINT OF CARE Routine 05/19/2023 4:44 PM SALES SERVICE SUPERVISOR GLUCOSE - POINT OF CARE Routine 05/19/2023 11:29 AM SALES SERVICE SUPERVISOR GLUCOSE - POINT OF CARE Routine 05/19/2023 7:48 AM SALES SERVICE SUPERVISOR GLUCOSE - POINT OF CARE Routine 05/18/2023 8:21 PM SALES SERVICE SUPERVISOR GLUCOSE - POINT OF CARE Routine 05/18/2023 4:36 PM SALES SERVICE SUPERVISOR GLUCOSE - POINT OF CARE Routine 05/18/2023 11:24 AM SALES SERVICE SUPERVISOR GLUCOSE - POINT OF CARE Routine 05/18/2023 7:36 AM SALES SERVICE SUPERVISOR GLUCOSE - POINT OF CARE Routine 05/17/2023 8:38 PM SALES SERVICE SUPERVISOR GLUCOSE - POINT OF CARE Routine 05/17/2023 4:51 PM SALES SERVICE SUPERVISOR GLUCOSE - POINT OF CARE Routine 05/17/2023 11:34 AM SALES SERVICE SUPERVISOR GLUCOSE - POINT OF CARE Routine 05/17/2023 8:09 AM SALES SERVICE SUPERVISOR GLUCOSE - POINT OF CARE Routine 05/16/2023 6:44 PM SALES SERVICE SUPERVISOR GLUCOSE - POINT OF CARE Routine 05/16/2023 4:56 PM SALES SERVICE SUPERVISOR GLUCOSE - POINT OF CARE Routine 05/16/2023 9:45 AM SALES SERVICE SUPERVISOR BASIC METABOLIC PANEL (CALCIUM TOTAL) STAT 05/16/2023 2:35 AM SALES SERVICE SUPERVISOR Chronic left-sided low back pain with left-sided sciatica CBC W AUTO DIFFERENTIAL STAT 05/15/2023 10:01 PM SALES SERVICE SUPERVISOR COMPREHENSIVE METABOLIC PANEL STAT 05/15/2023 10:01 PM SALES SERVICE SUPERVISOR documented in this encounter Results * (ABNORMAL) GLUCOSE - POINT OF CARE (05/20/2023 11:32 AM SALES SERVICE SUPERVISOR) Glucose WB/POC 247(H) 70 - 106 mg/dL 05/20/2023 11:41 AM SALES SERVICE SUPERVISOR [facility] Specimen Type Cap Fingerstick 2023 11:41 AM SALES SERVICE SUPERVISOR [facility] Blood BLOOD SPECIMEN / Unknown 05/20/2023 11:32 AM SALES SERVICE SUPERVISOR 05/20/2023 11:41 AM SALES SERVICE SUPERVISOR Anne Marie Poole MD LAB - POINT OF CARE ORDERABLES Performing Organization Address [facility] Co de Phone Number [facility] [address] [place] [phone] * (ABNORMAL) GLUCOSE - POINT OF CARE (05/20/2023 8:16 AM SALES SERVICE SUPERVISOR) Glucose WB/POC 188(H) 70 - 106 mg/dL 05/20/2023 8:26 AM SALES SERVICE SUPERVISOR [facility] Specimen Type Cap Fingerstick 2023 8:26 AM SALES SERVICE SUPERVISOR [facility] Blood BLOOD SPECIMEN / Unknown 05/20/2023 8:16 AM SALES SERVICE SUPERVISOR 05/20/2023 8:26 AM SALES SERVICE SUPERVISOR Anne Marie Poole MD LAB - POINT OF CARE ORDERABLES Performing Organization Address [facility] de Phone Number [facility] [address] [place] [address] [phone] * (ABNORMAL) GLUCOSE - POINT OF CARE (05/19/2023 4:44 PM SALES SERVICE SUPERVISOR) Glucose WB/POC 185(H) 70 - 106 mg/dL 05/19/2023 4:56 PM SALES SERVICE SUPERVISOR [facility] Specimen Type Cap Fingerstick 2023 4:56 PM SALES SERVICE SUPERVISOR [facility] Blood BLOOD SPECIMEN / Unknown 05/19/2023 4:44 PM SALES SERVICE SUPERVISOR 05/19/2023 4:56 PM SALES SERVICE SUPERVISOR Anne Marie Poole MD LAB - POINT OF CARE ORDERABLES [facility] [address] [place] [address] * (ABNORMAL) GLUCOSE - POINT OF CARE (05/19/2023 11:29 AM SALES SERVICE SUPERVISOR) Glucose WB/POC 266(H) 70 - 106 mg/dL 05/19/2023 1:15 PM SALES SERVICE SUPERVISOR [facility] Specimen Type Cap Fingerstick 2023 1:15 PM SALES SERVICE SUPERVISOR [facility] Blood BLOOD SPECIMEN / Unknown 05/19/2023 11:29 AM SALES SERVICE SUPERVISOR 05/19/2023 1:15 PM SALES SERVICE SUPERVISOR Anne Marie Poole MD LAB - POINT OF CARE ORDERABLES [facility] [address] [place] [address] [phone] * (ABNORMAL) GLUCOSE - POINT OF CARE (05/19/2023 7:48 AM SALES SERVICE SUPERVISOR) Glucose WB/POC 199(H) 70 - 106 mg/dL 05/19/2023 8:05 AM SALES SERVICE SUPERVISOR [facility] Specimen Type Cap Fingerstick 2023 8:05 AM SALES SERVICE SUPERVISOR [facility] Blood BLOOD SPECIMEN / Unknown 05/19/2023 7:48 AM SALES SERVICE SUPERVISOR 05/19/2023 8:05 AM SALES SERVICE SUPERVISOR Anne Marie Poole MD LAB - POINT OF CARE ORDERABLES [facility] [address] [place] [phone] * (ABNORMAL) GLUCOSE - POINT OF CARE (05/18/2023 8:21 PM SALES SERVICE SUPERVISOR) Glucose WB/POC 210(H) 70 - 106 mg/dL 05/18/2023 8:38 PM SALES SERVICE SUPERVISOR [facility] Specimen Type Cap Fingerstick 2023 8:38 PM SALES SERVICE SUPERVISOR [facility] Blood BLOOD SPECIMEN / Unknown 05/18/2023 8:21 PM SALES SERVICE SUPERVISOR 05/18/2023 8:38 PM SALES SERVICE SUPERVISOR Jamie Lake MD LAB - POINT OF CARE ORDERABLES Performing Organization Address [facility]/ZIP Co de Phone Number [facility] [address] [place] [phone] * (ABNORMAL) GLUCOSE - POINT OF CARE (05/18/2023 4:36 PM SALES SERVICE SUPERVISOR) Glucose WB/POC 198(H) 70 - 106 mg/dL 05/18/2023 4:46 PM SALES SERVICE SUPERVISOR [facility] Specimen Type Cap Fingerstick 2023 4:46 PM SALES SERVICE SUPERVISOR [facility] Blood BLOOD SPECIMEN / Unknown 05/18/2023 4:36 PM SALES SERVICE SUPERVISOR 05/18/2023 4:46 PM SALES SERVICE SUPERVISOR Jamie Lake MD LAB - POINT OF CARE ORDERABLES Performing Organization Address [facility] de Phone Number [facility] [address] [place] [phone] * (ABNORMAL) GLUCOSE - POINT OF CARE (05/18/2023 11:24 AM SALES SERVICE SUPERVISOR) Glucose WB/POC 200(H) 70 - 106 mg/dL 05/18/2023 12:44 PM SALES SERVICE SUPERVISOR [facility] Specimen Type Cap Fingerstick 2023 12:44 PM SALES SERVICE SUPERVISOR [facility] Blood BLOOD SPECIMEN / Unknown 05/18/2023 11:24 AM SALES SERVICE SUPERVISOR 05/18/2023 12:44 PM SALES SERVICE SUPERVISOR Jamie Lake MD LAB - POINT OF CARE ORDERABLES Performing Organization Address [facility] Co de Phone Number [facility] [address] [place] [phone] * (ABNORMAL) GLUCOSE - POINT OF CARE (05/18/2023 7:36 AM SALES SERVICE SUPERVISOR) Glucose WB/POC 189(H) 70 - 106 mg/dL 05/19/2023 6:33 AM SALES SERVICE SUPERVISOR [facility] Specimen Type Cap Fingerstick 2023 6:33 AM SALES SERVICE SUPERVISOR [facility] Blood BLOOD SPECIMEN / Unknown 05/18/2023 7:36 AM SALES SERVICE SUPERVISOR 05/19/2023 6:33 AM SALES SERVICE SUPERVISOR Jamie Lake MD LAB - POINT OF CARE ORDERABLES Performing Organization Address [facility]/ZIP Co de Phone Number [facility] [address] [place] [address] [phone] * (ABNORMAL) GLUCOSE - POINT OF CARE (05/17/2023 8:38 PM SALES SERVICE SUPERVISOR) Glucose WB/POC 166(H) 70 - 106 mg/dL 05/17/2023 9:17 PM SALES SERVICE SUPERVISOR [facility] Specimen Type Cap Fingerstick 2023 9:17 PM SALES SERVICE SUPERVISOR [facility] Blood BLOOD SPECIMEN / Unknown 05/17/2023 8:38 PM SALES SERVICE SUPERVISOR 05/17/2023 9:17 PM SALES SERVICE SUPERVISOR Jamie Lake MD LAB - POINT OF CARE ORDERABLES Performing Organization Address [facility] [facility] Co de Phone Number [facility] [address] [place] [address] [phone] * (ABNORMAL) GLUCOSE - POINT OF CARE (05/17/2023 4:51 PM SALES SERVICE SUPERVISOR) Glucose WB/POC 187(H) 70 - 106 mg/dL 05/17/2023 5:19 PM SALES SERVICE SUPERVISOR [facility] Specimen Type Cap Fingerstick 2023 5:19 PM SALES SERVICE SUPERVISOR [facility] Blood BLOOD SPECIMEN / Unknown 05/17/2023 4:51 PM SALES SERVICE SUPERVISOR 05/17/2023 5:19 PM SALES SERVICE SUPERVISOR Jamie Lake MD LAB - POINT OF CARE ORDERABLES Performing Organization Address [facility] Co de Phone Number [facility] [address] [place] [address] [phone] * (ABNORMAL) GLUCOSE - POINT OF CARE (05/17/2023 11:34 AM SALES SERVICE SUPERVISOR) Glucose WB/POC 144(H) 70 - 106 mg/dL 05/17/2023 11:48 AM SALES SERVICE SUPERVISOR [facility] Specimen Type Cap Fingerstick 2023 11:48 AM SALES SERVICE SUPERVISOR [facility] Blood BLOOD SPECIMEN / Unknown 05/17/2023 11:34 AM SALES SERVICE SUPERVISOR 05/17/2023 11:48 AM SALES SERVICE SUPERVISOR Jamie Lake MD LAB - POINT OF CARE ORDERABLES Performing Organization Address City/[facility]/ZIP Co de Phone Number [facility] [address] [place] [phone] * (ABNORMAL) GLUCOSE - POINT OF CARE (05/17/2023 8:09 AM SALES SERVICE SUPERVISOR) Glucose WB/POC 185(H) 70 - 106 mg/dL 05/17/2023 8:21 AM SALES SERVICE SUPERVISOR [facility] Specimen Type Cap Fingerstick 2023 8:21 AM SALES SERVICE SUPERVISOR [facility] Blood BLOOD SPECIMEN / Unknown 05/17/2023 8:09 AM SALES SERVICE SUPERVISOR 05/17/2023 8:21 AM SALES SERVICE SUPERVISOR Jamie Lake MD LAB - POINT OF CARE ORDERABLES Performing Organization Address [facility] Co de Phone Number [facility] [address] [place] [phone] * (ABNORMAL) GLUCOSE - POINT OF CARE (05/16/2023 6:44 PM SALES SERVICE SUPERVISOR) Glucose WB/POC 229(H) 70 - 106 mg/dL 05/16/2023 6:50 PM SALES SERVICE SUPERVISOR [facility] Specimen Type Cap Fingerstick 2023 6:50 PM SALES SERVICE SUPERVISOR [facility] Blood BLOOD SPECIMEN / Unknown 05/16/2023 6:44 PM SALES SERVICE SUPERVISOR 05/16/2023 6:50 PM SALES SERVICE SUPERVISOR Jamie Lake MD LAB - POINT OF CARE ORDERABLES Performing Organization Address City/[facility]/ZIP Co de Phone Number [facility] [address] [place] [address] [phone] * (ABNORMAL) GLUCOSE - POINT OF CARE (05/16/2023 4:56 PM SALES SERVICE SUPERVISOR) Glucose WB/POC 190(H) 70 - 106 mg/dL 05/16/2023 5:06 PM SALES SERVICE SUPERVISOR [facility] Specimen Type Cap Fingerstick 2023 5:06 PM SALES SERVICE SUPERVISOR [facility] Blood BLOOD SPECIMEN / Unknown 05/16/2023 4:56 PM SALES SERVICE SUPERVISOR 05/16/2023 5:06 PM SALES SERVICE SUPERVISOR Jamie Lake MD LAB - POINT OF CARE ORDERABLES Performing Organization Address City/[facility]/ZIP Co de Phone Number [facility] [address] [place] [phone] * (ABNORMAL) GLUCOSE - POINT OF CARE (05/16/2023 9:45 AM SALES SERVICE SUPERVISOR) Glucose WB/POC 184(H) 70 - 106 mg/dL 05/16/2023 9:55 AM SALES SERVICE SUPERVISOR [facility] Specimen Type Cap Fingerstick 2023 9:55 AM SALES SERVICE SUPERVISOR [facility] Blood BLOOD SPECIMEN / Unknown 05/16/2023 9:45 AM SALES SERVICE SUPERVISOR 05/16/2023 9:55 AM SALES SERVICE SUPERVISOR Jamie Lake MD LAB - POINT OF CARE ORDERABLES Performing Organization Address [facility] de Phone Number [facility] [address] [place] [phone] * (ABNORMAL) BASIC METABOLIC PANEL (CALCIUM TOTAL) (05/16/2023 2:35 AM SALES SERVICE SUPERVISOR) Glucose 174(H) 70 - 105 mg/dL 05/16/2023 2:52 AM SALES SERVICE SUPERVISOR [facility] Sodium 140 136 - 145 mmol/L 05/16/2023 2:52 AM SALES SERVICE SUPERVISOR [facility] Potassium 4.1 3.5 - 5.1 mmol/L 05/16/2023 2:52 AM [facility] Chloride 107 98 - 107 mmol/L 05/16/2023 2:52 AM [facility] CO2 25 22 - 29 mmol/L 05/16/2023 2:52 AM SALES SERVICE SUPERVISOR [facility] Calcium 9.0 8.4 - 10.4 mg/dL 05/16/2023 2:52 AM [facility] Anion Gap 8 6 - 16 mmol/L 05/16/2023 2:52 AM [facility] BUN 13 7 - 26 mg/dL 05/16/2023 2:52 AM [facility] Creatinine 0.67 0.57 - 1.11 mg/dL 05/16/2023 2:52 AM [facility] eGFR by CKD-EPI >90 >=90 mL/min/1.7 3 m2 05/16/2023 2:52 AM [facility] Blood BLOOD SPECIMEN / Unknown Venipuncture / Unknown 05/16/2023 2:35 AM SALES SERVICE SUPERVISOR 05/16/2023 2:35 AM SALES SERVICE SUPERVISOR Mary Velasquez MD LAB - CHEMISTRY [facility] Organization Address City/State/ZIP Co de Phone Number [facility] [address] [place], [place] [phone] * (ABNORMAL) CBC W AUTO DIFFERENTIAL (05/15/2023 10:01 PM [facility]) WBC 10.8(H) 4.0 - 10.7 x10E9/L 05/15/2023 10:11 PM [facility] RBC Count 4.38 3.90 - 5.20 x10E12/L 05/15/2023 10:11 PM [facility] Hemoglobin 12.8 11.9 - 15.8 g/dL 05/15/2023 10:11 PM [facility] Hematocrit 40.4 34.8 - 46.1 % 05/15/2023 10:11 PM [facility] MCV 92.2 80.0 - 98.0 fL 05/15/2023 10:11 PM [facility] MCH 29.2 26.7 - 33.6 pg 05/15/2023 10:11 PM [facility] MCHC 31.7 31.7 - 36.3 g/dL 05/15/2023 10:11 PM [facility] RDW-CV 13.6 11.3 - 14.8 % 05/15/2023 10:11 PM [facility] Platelet Count 275 150 - 420 x10E9/L 05/15/2023 10:11 PM [facility] MPV 10.2 7.8 - 11.4 fL 05/15/2023 10:11 PM [facility] Neutrophil % 60.3 41.0 - 74.0 % 05/15/2023 10:11 PM [facility] Lymphocyte % 28.7 17.0 - 47.0 % 05/15/2023 10:11 PM [facility] Monocyte % 7.7 3.0 - 11.0 % 05/15/2023 10:11 PM [facility] Eosinophil % 2.6 0.0 - 7.0 % 05/15/2023 10:11 PM [facility] Basophil % 0.4 0.0 - 1.6 % 05/15/2023 10:11 PM [facility] Immature Granulocytes % 0.3 0.0 - 1.0 % 05/15/2023 10:11 PM [facility] Neutrophil Absolute 6.53 1.60 - 7.50 x10E9/L 05/15/2023 10:11 PM [facility] Lymphocyte Absolute 3.11 1.00 - 4.40 x10E9/L 05/15/2023 10:11 PM [facility] Monocyte Absolute 0.83 0.15 - 1.00 x10E9/L 05/15/2023 10:11 PM [facility] Eosinophil Absolute 0.28 0.00 - 0.60 x10E9/L 05/15/2023 10:11 PM [facility] Basophil Absolute 0.04 0.00 - 0.13 x10E9/L 05/15/2023 10:11 PM [facility] Blood BLOOD SPECIMEN / Unknown Venipuncture / Unknown 05/15/2023 10:01 PM SALES SERVICE SUPERVISOR 05/15/2023 10:08 PM [facility] Emily Felix MD LAB - HEMATOLOGY ORDERABLES [facility] [address] [place] [phone] * (ABNORMAL) COMPREHENSIVE METABOLIC PANEL (05/15/2023 10:01 PM [facility]) [facility] Glucose 197(H) 70 - 105 mg/dL 05/15/2023 10:26 PM [facility] Sodium 139 136 - 145 mmol/L 05/15/2023 10:26 PM [facility] Potassium 4.7 3.5 - 5.1 mmol/L 05/15/2023 10:26 PM [facility] Comment:Specimen is Moderate ly Hemolyzed. This potassium result may be falsely elevated. Chloride 107 98 - 107 mmol/L 05/15/2023 10:26 PM [facility] CO2 21(L) 22 - 29 mmol/L 05/15/2023 10:26 PM [facility] Calcium 9.6 8.4 - 10.4 mg/dL 05/15/2023 10:26 PM [facility] Anion Gap 11 6 - 16 mmol/L 05/15/2023 10:26 PM [facility] BUN 15 7 - 26 mg/dL 05/15/2023 10:26 PM [facility] Creatinine 0.76 0.57 - 1.11 mg/dL 05/15/2023 10:26 PM [facility] Alkaline Phosphatase 74 40 - 150 U/L 05/15/2023 10:26 PM [facility] ALT 22 0 - 55 U/L 05/15/2023 10:26 PM [facility] AST 24 5 - 34 U/L 05/15/2023 10:26 PM [facility] Comment:Specimen is Moderate ly Hemolyzed. This AST result may be falsely elevated. Protein Total 8.4(H) 6.4 - 8.3 gm/dL 05/15/2023 10:26 PM [facility] Comment:Specimen is Moderate ly Hemolyzed. This total protein result may be falsely elevated. Albumin 3.3(L) 3.4 - 5.0 gm/dL 05/15/2023 10:26 PM [facility] Bilirubin Total 0.4 0.2 - 1.2 mg/dL 05/15/2023 10:26 PM [facility] eGFR by CKD-EPI 86(L) >=90 mL/min/1.7 3 m2 05/15/2023 10:26 PM [facility] Blood BLOOD SPECIMEN / Unknown Venipuncture / Unknown 05/15/2023 10:01 PM [facility] 05/15/2023 10:08 PM SALES SERVICE SUPERVISOR Emily Felix MD LAB - CHEMISTRY ORDERABLES [facility] [address] [place], [place] [phone] documented in this encounter Visit Diagnoses Diagnosis [...] verify patency. $ Given 05/18/2023 2:49 PM SALES SERVICE SUPERVISOR 3 mL $ Given 05/18/2023 6:47 AM SALES SERVICE SUPERVISOR 3 mL 0.9% NaCl injection 3 mL 3 mL, Intracatheter, EVERY 8 HOURS, First dose on Mon05/16/23 at 0015, Until Discontinued, Flush peripheral IV catheter with 3 mL of normal saline every 8 hours. $ Given 05/20/2023 3:10 PM SALES SERVICE SUPERVISOR 3 mL $ Given 05/19/2023 6:28 AM SALES SERVICE SUPERVISOR 3 mL $ Given 05/18/2023 8:34 PM SALES SERVICE SUPERVISOR 3 mL acetaminophen (Tylenol) tablet 1,000 mg [...] the MAR. $ Given 05/20/2023 3:10 PM SALES SERVICE SUPERVISOR 1,000 mg $ Given 05/20/2023 8:28 AM SALES SERVICE SUPERVISOR 1,000 mg $ Given 05/19/2023 10:08 PM SALES SERVICE SUPERVISOR 1,000 mg acetaminophen (Tylenol) tablet 650 mg [...] the MAR. $ Given 05/18/2023 8:32 AM SALES SERVICE SUPERVISOR 650 m g $ Given 05/17/2023 8:47 PM SALES SERVICE SUPERVISOR 650 mg $ Given 05/17/2023 1:33 PM SALES SERVICE SUPERVISOR 650 mg amitriptyline (Elavil) tablet 25 mg 25 mg, Oral, AT BEDTIME, First dose (after last reorder) on Mon05/17/23 at 2115, Until Discontinued $ Given 05/19/2023 10:08 PM SALES SERVICE SUPERVISOR 25 mg $ Given 05/18/2023 8:34 PM SALES SERVICE SUPERVISOR 25 mg $ Given 05/17/2023 8:47 PM SALES SERVICE SUPERVISOR 25 mg dextrose 10 % IV bolus [...] at 1916 $ Given 05/19/2023 7:52 PM SALES SERVICE SUPERVISOR 25 mg $ Given 05/19/2023 12:49 PM SALES SERVICE SUPERVISOR 25 mg $ Given 05/17/2023 10:23 AM SALES SERVICE SUPERVISOR 25 mg exemestane (Aromasin) tablet 25 mg 25 mg, Oral, AT BEDTIME, First dose on Mon05/19/23 at 2100, Until Discontinued $ Given 05/19/2023 10:10 PM SALES SERVICE SUPERVISOR 25 mg glucagon (Glucagen) injection 1 mg [...] Until Discontinued $ Given 05/20/2023 8:28 AM SALES SERVICE SUPERVISOR 25 mg $ Given 05/19/2023 9:21 AM SALES SERVICE SUPERVISOR 25 mg $ Given 05/18/2023 8:32 AM SALES SERVICE SUPERVISOR 25 mg HYDROcodone-acetaminophen ([place]) 10-325 MG tablet 1 tablet 1 tablet, [...] the MAR. $ Given 05/16/2023 9:42 AM SALES SERVICE SUPERVISOR 1 tablet $ Given 05/16/2023 12:57 AM SALES SERVICE SUPERVISOR 1 tablet hydrOXYzine HCl (Atarax) tablet 25 mg 25 mg, Oral, 3 TIMES DAILY PRN, Itching, Starting on Mon05/16/23 at 2001, Until Mon05/20/23 at 1916 $ Given 05/20/2023 10:38 AM SALES SERVICE SUPERVISOR 25 mg $ Given 05/20/2023 1:35 AM SALES SERVICE SUPERVISOR 25 mg $ Given 05/18/2023 8:32 AM SALES SERVICE SUPERVISOR 25 mg insulin aspart (NovoLOG) pen 0-6 [...] same time. $ Given 05/20/2023 11:41 AM SALES SERVICE SUPERVISOR 3 Units Righ t Arm $ Given 05/20/2023 8:19 AM SALES SERVICE SUPERVISOR 2 Units Ri ght Arm $ Given 05/19/2023 6:50 PM SALES SERVICE SUPERVISOR 2 Units Ab dominal Tissue insulin aspart (NovoLOG) pen 10 Units 10 Units, Subcutaneous, 3 TIMES DAILY WITH MEALS, First dose on Mon05/19/23 at 1200, Until Discontinued, Obtain current Blood Glucose if necessary. May be given immediately before meal, during meal, or immediately after meal is eaten. Meal must be present before administration. $ Given 05/20/2023 11:41 AM SALES SERVICE SUPERVISOR 10 Units R ight Arm $ Given 05/20/2023 8:20 AM SALES SERVICE SUPERVISOR 10 Units Ri ght Arm $ Given 05/19/2023 6:49 PM SALES SERVICE SUPERVISOR 10 Units Ab dominal Tissue insulin aspart (NovoLOG) pen 15 Units 15 Units, Subcutaneous, 3 TIMES DAILY WITH MEALS, First dose on Mon05/16/23 at 0800, Until Discontinued, Hold MEALTIME insulin if patient is NPO or eating less than 50% of meals. -OR- if carb intake for the meal is less than 30 grams. $ Given 05/16/2023 5:53 PM SALES SERVICE SUPERVISOR 15 Units Abdominal Tissue insulin glargine (Lantus) pen 45 Units 45 Units, Subcutaneous, EVERY MORNING, First dose on Mon05/16/23 at 0700, Until Discontinued, DO NOT HOLD even if patient is NPO Consider calling physician for dose reduction if patient is made NPO. . WASTE DISPOSAL INSTRUCTIONS: Black Bin Disposal required. $ Given 05/20/2023 8:21 AM SALES SERVICE SUPERVISOR 45 Units Right Arm $ Given 05/19/2023 8:22 AM SALES SERVICE SUPERVISOR 45 Units Ab dominal Tissue $ Given 05/18/2023 8:36 AM SALES SERVICE SUPERVISOR 45 Units Ab dominal Tissue lidocaine (Lidoderm) 5 % patch 1 patch 1 patch, Administer over 12 Hours, EVERY 24 HOURS, First dose on Mon05/18/23 at 1000, Until Discontinued, Apply near areas of pain and remove patch after a max of 12 hours of application within a 24 hour period. $ Applied 05/19/2023 9:21 AM SALES SERVICE SUPERVISOR 1 patch Back $ Applied 05/18/2023 10:17 AM SALES SERVICE SUPERVISOR 1 patch B ack methocarbamol (Robaxin) tablet 500 mg 500 mg, Oral, EVERY 6 HOURS PRN, Muscle Spasms, Starting on Mon05/16/23 at 0010, Until Mon05/16/23 at 0159 $ Given 05/16/2023 12:57 AM SALES SERVICE SUPERVISOR 500 mg methocarbamol (Robaxin) tablet 750 mg 750 mg, Oral, EVERY 6 HOURS PRN, Muscle Spasms, Starting on Mon05/16/23 at 1232, Until Mon05/20/23 at 1916 $ Given 05/19/2023 10:07 PM SALES SERVICE SUPERVISOR 750 mg $ Given 05/19/2023 9:21 AM SALES SERVICE SUPERVISOR 750 mg $ Given 05/18/2023 11:33 PM SALES SERVICE SUPERVISOR 750 mg morphine injection 4 mg 4 [...] the MAR. $ Given 05/15/2023 10:09 PM SALES SERVICE SUPERVISOR 4 mg morphine injection 4 mg 4 [...] the MAR. $ Given 05/15/2023 11:56 PM SALES SERVICE SUPERVISOR 4 mg morphine injection 4 mg 4 [...] the MAR. $ Given 05/19/2023 10:18 AM SALES SERVICE SUPERVISOR 4 mg $ Given 05/19/2023 4:53 AM SALES SERVICE SUPERVISOR 4 mg $ Given 05/19/2023 12:31 AM SALES SERVICE SUPERVISOR 4 mg ondansetron (disintegrating) (Zofran ODT) tablet 4 mg 4 mg, Oral, ONCE, 1 dose, On Valeri 05/18/23 at 0115, Dissolved orally on tongue $ Given 05/18/2023 1:24 AM SALES SERVICE SUPERVISOR 4 mg ondansetron (Zofran) injection 4 mg 4 mg, Intravenous, ONCE, 1 dose, On Mon05/15/23 at 2215, Administer over 2 to 5 minutes. $ Given 05/15/2023 10:09 PM SALES SERVICE SUPERVISOR 4 mg oxyCODONE (immediate release) (Roxicodone) tablet [...] the MAR. $ Given 05/20/2023 5:07 AM SALES SERVICE SUPERVISOR 10 mg $ Given 05/19/2023 7:52 PM SALES SERVICE SUPERVISOR 10 mg $ Given 05/19/2023 2:30 PM SALES SERVICE SUPERVISOR 10 mg oxyCODONE (immediate release) (Roxicodone) tablet [...] the MAR. $ Given 05/20/2023 12:21 PM SALES SERVICE SUPERVISOR 5 mg $ Given 05/18/2023 3:49 PM SALES SERVICE SUPERVISOR 5 mg rivaroxaban (Xarelto) tablet 20 mg 20 mg, Oral, DAILY WITH DINNER, First dose on Mon05/16/23 at 0200, Until Discontinued, For tube administration, please refer to the MAR References links: Administration Dose of 15 mg or greater should be taken with food $ Given 05/19/2023 6:49 PM CS T 20 mg $ Given 05/18/2023 5:49 PM SALES SERVICE SUPERVISOR 20 mg $ Given 05/17/2023 5:33 PM SALES SERVICE SUPERVISOR 20 mg tolterodine ER 24hr (Detrol LA) capsule 2 mg 2 mg, Oral, DAILY, First dose (after last modification) on Mon05/16/23 at 0900, Until Discontinued, Do not crush or chew. $ Given 05/20/2023 8:28 AM SALES SERVICE SUPERVISOR 2 mg $ Given 05/19/2023 9:21 AM SALES SERVICE SUPERVISOR 2 mg $ Given 05/18/2023 8:32 AM SALES SERVICE SUPERVISOR 2 mg documented in this encounter Active and Recently Administered Medications Times are shown in SALES SERVICE SUPERVISOR. Scheduled Medication Order 05/18/2023 05/19/2023 05/20/2023 0.9% [...] MAR. documented in this encounter Care Teams Assistant Scientist Relationship Specialty Start Date End Date Justen Gale MD PCP - General 07/05/21 documented as of this encounter
--- OUTSIDE RECORDS SUMMARY | 2024-04-26 06:53 | XMS_ITS | Encounter Summary ---
Author Organization [facility] Address [address] [place] [address] Care Team Providers Care Skein Winding Operator Name Role Phone Justen Gale MD Primary Care Provider Reason for Referral * Consultation (Urgent) - Closed Specialty Diagnoses / Procedures Referred By Elyssa benavides Referred To Contact Transitional Care Diagnoses Estrella Prescott MD [address] [place] [address] [facility] [address] [place] [id number] Referral ID Status Reason Start Date Expiration Date V isits Requested Visits Authorized [id number] Closed Specialty Services Required 03/22/2023 03/21/2024 1 1 REMOVER Reason for Visit * Reason Comments Pain [...] Expiration Date Visits Re quested Visits Authorized [id number] 1 1 Encounter Details Date Type Department Care Team (Late st Contact Info) Description 03/19/2023 9:38 PM SNOW REMOVER - 03/23/2023 6:14 PM SNOW REMOVER Hospital Encounter [facility] SHORT STAY UNIT [address] [place] [address] Coco Harris MD [facility] [phone] Estrella Dunbar MD [address] [place] [address] Rosa Torres MD [address] [place] [address] Emergency Medicine Discharge Disposition: Home or [...] and heating? Not hard at all 02/22/2023 [facility] of Occupat ional Health - Occupational Stress [...] Comments Blood Pressure 141/86 03/23/2023 3:57 PM SNOW REMOVER Pulse 85 03/23/2023 3:57 PM SNOW REMOVER Temperature 36.4 ??C (97.6 ??F) 03/23/2023 3:57 PM CS T Respiratory Rate 18 03/23/2023 3:57 PM SNOW REMOVER Oxygen Saturation 93% 03/23/2023 3:57 PM SNOW REMOVER Inhaled Oxygen Concentration 21% 03/22/2023 5 :26 AM SNOW REMOVER Weight 123.8 kg (273 lb) 03/21/2023 12:04 AM SNOW REMOVER Height 154.9 cm (5' 1 ) 03/21/2023 12:04 AM SNOW REMOVER Body Mass Index 51.58 03/21/2023 12:04 AM SNOW REMOVER documented in this encounter Functional Status Functional [...] Physician Discharge Summary Patient ID: Karly Marques [id number] 67 year old 1955 Admit date: 03/19/2023 [...] HYDROcodone-acetaminophen 7.5-325 MG tablet Commonly known as: Aulander Lantus SoloStar pen Generic drug: insulin glargine [...] Your Medications These medications were sent to [facility] - [address] [place] [address] [place] [id number] ?? hydrOXYzine HCl 25 MG tablet ?? nitrofurantoin monohyd macro crystals 100 MG capsule Follow-up Information Maxi Gregg MD . Specialty: Neurological Surgery Contact information: [address] [place] [address] OF NEUROSURGERY [facility] [address] Discharge Instructions DISCHARGE INSTRUCTIONS? A MESSAGE [...] hours as needed in addition to the Aulander you take every 6 hours; please make [...] medications, please ask the pharmacy when you pick pack worker your prescription. You may also call your primary provider if you still have questions.? ? 2. FOLLOW-UP:? A) Below are your scheduled appointments? Future Appointments Monday March 27, 2023 10:00 AM (Arrive by 9:45 AM) Appointment with Maxi Gregg at [facility] ([phone]) [address] [facility] March 9:00 AM Appointment with [facility] at Transitional Care at [facility] ([phone]) [address] [facility] [address] Monday April 03, 2023 1:15 PM (Arrive by 1:00 PM) Appointment with Maxi Gregg at [facility] ([phone]) [address] [facility] [address] [facility] As directed Outpatient Referral: Ref to [facility] Transitional Care ? -If you are not going home but to Rehab or [facility], ask the providers there about going to [...] Internal Medicine Team? [facility] [address] [place] [address]? You are being referred to the [facility] for follow up after your hospital stay. Location: The clinic is located on the second floor of [facility] at [facility]. The entrance can be found off [facility] and parking is available across the street in the parking garage. See the map below. Address: The [facility] at [address], Second Floor, [address] [place] [address] Hours: Monday to Monday 8:00 [...] you in 1-2 business days, please call [phone] and the staff will assist you. Where do I park? Free parking is available in the [employer] Garage located across the street from [facility]. When you arrive at the garage, you will get a ticket which you will have validated at the front end ui developer on theFirst Floor of [facility]. What if I do not have insurance? What is the cost? There is no copay required for a [facility] appointment. If you do not have insurance, our clinic Brand Marketing Intern, may be able to refer you to [...] reschedule or cancel my appointment? Please call [phone] and the staff will assist you. If you need to cancel, we ask that you call24 hours before your appointment. What if I need transportation assistance? When our team schedules your appointment, they will ask if you need transportation assistance and can help you coordinate that. Thank you! We look forward to seeing you at the [facility]. REMOVER documented in this encounter Discharge Instructions * Discharge Instructions* Estrella Dunbar MD - 03/22/2023 12:31 PM SNOW REMOVER Images from the original note were not [...] hours as needed in addition to the Aulander you take every 6 hours; please make [...] medications, please ask the pharmacy when you pick pack worker your prescription. You may also call your primary provider if you still have questions.? ? 2. FOLLOW-UP:? A) Below are your scheduled appointments? Future Appointments Monday March 27, 2023 10:00 AM (Arrive by 9:45 AM) Appointment with Maxi Gregg at [facility] ([phone]) [address] [facility] [address] [facility] March 9:00 AM Appointment with [facility] at Transitional Care at [facility] ([phone]) [address] [facility] [address] Monday April 03, 2023 1:15 PM (Arrive by 1:00 PM) Appointment with Maxi Gregg at [facility] ([phone]) [address] [facility] [address] [facility] As directed Outpatient Referral: Ref to [facility] Transitional Care ? -If you are not going home but to Rehab or [facility], ask the providers there about going to [...] Team? [facility] [address]? [place] [address]? You are being referred to the [facility] for follow up after your hospital stay. Location: The clinic is located on the second floor of [facility] at [facility]. The entrance can be found off [facility] and parking is available across the street in the parking garage. See the map below. Address: [facility] at [address], Second Floor, [address] [place] [address] Hours: Monday to Monday 8:00 [...] you in 1-2 business days, please call [phone] and the staff will assist you. Where do I park? Free parking is available in the [employer] [facility] located across the street from [facility]. When you arrive at the garage, you will get a ticket which you will have validated at the front end ui developer on theFirst Floor of [facility]. What if I do not have insurance? What is the cost? There is no copay required for a [facility] appointment. If you do not have insurance, our clinic Brand Marketing Intern, may be able to refer you to [...] reschedule or cancel my appointment? Please call [phone] and the staff will assist you. If you need to cancel, we ask that you call24 hours before your appointment. What if I need transportation assistance? When our team schedules your appointment, they will ask if you need transportation assistance and can help you coordinate that. Thank you! We look forward to seeing you at the [facility]. REMOVER documented in this encounter Medications at Time [...] SoloStar pen 40 (forty) Units once 02/25/2022 Crispy Driven PixelsTOUCH ULTRA test strip 4 times daily 02/01/2021 [...] mouth once daily 07/17/2022 05/19/2023 HYDROcodone-acetaminop hen (Aulander) 10-325 MG tablet Take 1 (one) tablet [...] Solo - 03/23/2023 12:31 PM CST Discharge Production Sampler received request from to arrange follow-up appointment for Patientwith Neurosurgery. This law writer called [phone] and spoke with Edmond. Production Sampler was able to obtain follow-up appointment for Patient with on 04/03/2023 at 1:00 pm. No further follow-up needs from operations scheduler indicated at this time. Jennifer Solo, Discharge Production Sampler 03/23/2023 REMOVER * Sammy Cobb MD - 03/23/2023 10:54 [...] up. Sammy Cobb MD 03/23/2023 10:54 AM REMOVER * Jos Duran RN - 03/23/2023 10:21 AM CST Problem: Pain/Discomfort Goal: Patient exhibits reduced pain/discomfort as evidenced by pain scores Outcome: Progressing Problem: Pain/Discomfort Goal: Patient uses pharmacological and non-pharmacological pain management strategies. Outcome: Progressing Problem: Pain/Discomfort Goal: Patient verbalizes acceptable level of pain relief and ability to engage in desired activity. Outcome: Progressing REMOVER * Corby Ritchie APRN-NETTA - 03/23/2023 4:17 [...] anticoagulation/antiplatelet medications at this time Corby Ritchie APRN-PANTOGRAPHER 4:17 AM 03/23/23 To reach Neurosurgery for questions: From 7am to 5pm please call the [facility] for Neurosurgery From 5pm to 7am please refer to ALVARO ([employer]) to reach the resident special education assistant (changes daily) Secure chat can be used for non-urgent issues only, please expect a reasonable amount of time for responses REMOVER * Harry Spears RN - 03/22/2023 7:45 PM CST Problem: Pain/Discomfort Goal: Patient exhibits reduced pain/discomfort as evidenced by pain scores Outcome: Progressing Goal: Patient uses pharmacological and non-pharmacological pain management strategies. Outcome: Progressing Goal: Patient verbalizes acceptable level of pain relief and ability to engage in desired activity. Outcome: Progressing REMOVER * Estrella Dunbar MD - 03/22/2023 5:58 [...] through Secure Chat. Estrella Dunbar MD 03/22/2023 REMOVER * Rojelio Hidalgo CPhT - 03/22/2023 2:58 [...] outpatient pharmacy at [phone]. Rojelio Hidalgo CPhT [facility] at [address], First Floor [place], [place] [address] Hours of Operation Monday - Monday: 8:00am to 6:00pm Monday: 9:00am to 1:00pm Epic: [facility] *Ensure the patient and clinic's nearby ZIP codes box is unchecked* * Yesi Villanueva RN - 03/22/2023 1:21 PM CST [facility] received a referral from Estrella Dunbar MD to schedule an appointment following hospital discharge. The patient is scheduled to be seen on March at 0900. Yesi Mariee RN Nurse Liaison Planner, [facility] 03/22/2023 Clinic: [phone] Office: [phone] REMOVER * Isamar Green OT - 03/22/2023 8:45 AM CST [facility] Physical Medicine and Rehabilitation Occupational Therapy Initial Evaluation & Discharge Note Patient: Karly Marques Med Record Number: [id number] Date of : 1955 Age: [age] year [...] depression Chronic anticoagulation CVA (cerebral vascular accident) ([facility]) Essential hypertension Neuropathy LUL (obstructive sleep apnea) Type 2 diabetes mellitus without complication ([facility]) S/P insertion of spinal cord stimulator Preoperative examination Acute post-operative pain Tachycardia Multiple subsegmental pulmonary emboli without acute cor pulmonale ([facility]) Wound infection complicating hardware ([facility]) Acute intractable headache, unspecified headache type Intractable chronic post-traumatic headache Right hand weakness Cellulitis, wound, post-operative Weakness Chronic left-sided low back pain, unspecified whether sciatica present S/P placement of nerve stimulator Acute cystitis without hematuria Breast cancer ([facility]) Restless legs syndrome (RLS) Rash Past Medical [...] home now Who assists you at home?: Seam Taper Machine Oxygen at Home: No Activity at Home: [...] aid ; educated/demo'd on use of LHSH, elevator installer apprentice, and sock aid to increase independence in [...] Therapy indicated at this time. Equipment Issued: elevator installer apprentice, sock aide, long handled shoehorn, long handled [...] on , with call light within reach. REMOVER * Isamar Polk, PT - 03/22/2023 8:45 AM CST [facility] Physical Medicine and Rehabilitation Physical Therapy Initial Evaluation Note Patient: Karly Marques Med Record Number: [id number] Date of : 1955 Age: [age] year [...] depression Chronic anticoagulation CVA (cerebral vascular accident) ([facility]) Essential hypertension Neuropathy LUL (obstructive sleep apnea) Type 2 diabetes mellitus without complication ([facility]) S/P insertion of spinal cord stimulator Preoperative examination Acute post-operative pain Tachycardia Multiple subsegmental pulmonary emboli without acute cor pulmonale ([facility]) Wound infection complicating hardware ([facility]) Acute intractable headache, unspecified headache type Intractable [...] home now Who assists you at home?: Seam Taper Machine Oxygen at Home: No Activity at Home: [...] Assistance: Stand By Assist Ambulation: Gait Deviations: Anrda - Decreased;Increased Trunk Flexion;Push Off - Decreased;Step [...] ascend/descent 2 steps with stand by assist Otc Clerk Goal(s): Patient to be independent with functional [...] with call light within reach, with Mirlande LAWLER aware, all lines intact. REMOVER * Justen Mckeon MD - 03/22/2023 6:33 AM CST Neurosurgery Plan of Care No further neurosurgical inpatient care required at this time. Patient should keep currently scheduled follow up appointment with Dr. Gregg. Patient is AAT and MODESTO from NSGY perspective. OK for DVT PPX. REMOVER * Harry Spears RN - 03/21/2023 8:00 [...] found in the flowsheet documentation) Outcome: Progressing REMOVER * Estrella Dunbar MD - 03/21/2023 12:22 [...] through Secure Chat. Estrella Dunbar MD 03/21/2023 REMOVER * Rosaura Mora RN - 03/21/2023 10:20 [...] by oskar Mojica as caregiver. Preferred Pharmacy: [id number] - [address] [place] [address] [address] [place] [address] READMISSION RISK SCORE is N/A at 10:21 AM 03/21/2023. Met with patient at bedside. Family Support (name and phone): Extended Emergency Contact Information Primary Emergency Contact: Jimmie Marques Address: [place] [address] Relation: Spouse Secondary Emergency Contact: Yunior Velez Mobile Relation: Daughter Patient or patient portal representative requests care coordination reach out to family or caregiver listed above regarding discharge planning and at time of discharge? No Patient/Family provided with list of resources? Unknown Preferred Provider / High Quality Network List given?: Unknown Reason for provider choice: Unknown Equipment at Home: Walker-2 Wheeled;CPAP;Cane-Straight List DME pt. requires but does not have.: None Personal Vehicle Advisor Referral: No Will continue to follow. For any questions or needs please contact: Brand Marketing Intern Name/Phone number: Rosaura Mora RN [phone] REMOVER * Shankar Ray RN - 03/21/2023 2:24 AM CST Problem: Pain/Discomfort Goal: Patient exhibits reduced pain/discomfort as evidenced by pain scores Outcome: Progressing Goal: Patient uses pharmacological and non-pharmacological pain management strategies. Outcome: Progressing Goal: Patient verbalizes acceptable level of pain relief and ability to engage in desired activity. Outcome: Progressing REMOVER * Shankar Ray RN - 03/20/2023 11:39 PM CST Pt refused lantus; poor appetite and has not been eating well per pt. Dr. Garcia notified of admission and refusal of lantus. No pressure sore noted on skin assessment. Rash present on L lower back around the incision. REMOVER documented in this encounter H&P Notes * Gil Goodwin MD - 03/20/2023 2:51 AM CST [facility] INTERNAL MEDICINE HISTORY & PHYSICAL NOTE Date [...] No Stress: No Stress Concern Present (02/22/2023) [facility] of Occupational Health - Occupational Stress Questionnaire [...] capsule by mouth once daily ??? HYDROcodone-acetaminophen (Aulander) 7.5-325 MG tablet Take 1 (one) tablet [...] , PCO2 , PO2 in the last [address] hours. Invalid input(s): BICAR3 Amylase/Lipase: Invalid input(s): AMYL , LIPA Thyroid Studies: No results for input(s): TSH , T4 in the last 580[address] hours. Cardiac Enzymes: Recent Labs Component Name 11/11/218 11/05/21 1350 TROPONINI <0.010 <0.010 Lipid Panel: No results for input(s): LDLCALC , HDL in the last 312[address] hours. UA: Trace leuk esterase Negative nitrite 11-20 WBC Microbiology: Microbiology Results (Displays last 21 days for this encounter ONLY) Procedure Component Value - Date/Time SARS-COV-2 (COVID-19) RAPID [[id number]] (Normal) Collected: 03/19/23 1350 Lab Status: Final result Specimen: Microbiology from Nasopharyngeal Updated: 03/19/23 1429 COVID-19 PCR Not detected Narrative: The [employer] Xpert Xpress SARS-COV-2 has been authorized by [...] assay are available upon request. CULTURE URINE [[id number]] Collected: 03/19/23 135 Lab Status: In process Specimen: Urine Clean Catch Updated: 03/19/23 1538 Imaging & Studies: ASSESSMENT & PLAN Weakness (POA: Unknown) Chronic left-sided low back pain, unspecified whether sciatica present (POA: Unknown) S/P placement of nerve stimulator (POA: Unknown) #Intractable Back Pain #S/P Placement of Nerve stimulator -stimulator replaced 02/16 -has been on home Aulander 7.5-325 -follows outpatient pain management PLAN: -neurosurgery [...] [facility] 03/20/2023 2:51 AM REMOVER Associated attestation - Estrella Dunbar MD - 03/20/2023 5:47 PM SNOW REMOVER I have verified the documentation of the [...] this encounter Consult Notes * Corby Ritchie, ANALYTIC PROGRAMMER-PANTOGRAPHER - 03/22/2023 8:56 PM CST Neurosurgery Consult [...] improved compared to photos from last admission. [facility] HIGH RISK VARIABLES None [...] (one) capsule by mouth once daily HYDROcodone-acetaminophen (Aulander) 7.5-325 MG tablet Take 1 (one) tablet [...] with Dr. Gregg at 20:51. Corby Ritchie APRN-PANTOGRAPHER 03/22/2023 8:56 PM REMOVER * Sammy Cobb MD - 03/19/2023 11:38 [...] 03/07 and noted to be doing well. [facility]INAL SURGERY HIGH RISK VARIABLES None [...] hydroCHLOROthiazide (Microzide) 12.5 MG capsule ??? HYDROcodone-acetaminophen (Aulander) 7.5-325 MG tablet ??? hydrOXYzine HCl (Atarax) [...] 0100. Sammy Cobb MD 03/19/2023 11:38 PM REMOVER documented in this encounter ED Notes * Teetee Chaudhari RN - 03/20/2023 10:47 PM CST Called and gave report to [facility] - patient to be transported to [facility] (or 116 per floor charge nurse) Shortly. REMOVER * Andreea Moody RN - 03/20/2023 2:32 AM CST Patient assist into inpatient hospital bed by Semaj RODAS. REMOVER * Coco Harris MD - 03/20/2023 2:10 AM CST For this patient encounter, I reviewed the Resident documentation, procedures (if done), treatment plan, and medical decision making; and I had [id number] time with this patient. I have conducted [...] for an observation admission. Coco Harris MD REMOVER * Andreea Moody RN - 03/20/2023 1:55 AM CST Patient able to ambulate to bathroom independently. REMOVER * Ryan Yung MD - 03/19/2023 9:58 [...] of nerve stimulator Disposition: Admitted to medicine REMOVER * Sophie Moss RN - 03/19/2023 9:38 PM CST Bed: AC26 Expected date: Expected time: Means of arrival: Comments: TRIAGE REMOVER * Paige Braun - 03/19/2023 7:19 PM CST Pt in waiting room, NAD noted. Patient complaining of back pain 10/31, would like pain meds. Will relay to RN. REMOVER * Yoli Rivera - 03/19/2023 5:31 PM CST Patient complaining of pain and wondering about wait times. REMOVER * Maira Elizondo - 03/19/2023 2:28 PM CST Pt in waiting room, NAD noted, no request at this time. REMOVER * Maira Elizondo - 03/19/2023 1:56 PM CST Pt having EKG done, labs collected, c/o pain (10/01) PA notified. REMOVER * Sisi Ricks PA-C - 03/19/2023 1:34 [...] capsule by mouth once daily ??? HYDROcodone-acetaminophen (Aulander) 7.5-325 MG tablet Take 1 (one) tablet [...] transferred to ER provider. Sisi Ricks PA-C REMOVER documented in this encounter Plan of Treatment Scheduled Referrals Name Type Priority Associated Diagnoses Order Schedule Ref to [facility] Transitional Care Outpatient Referral Routine Rash 1 Occurrences starting 03/22/2023 until 03/22/2024 documented as of this encounter Procedures Procedure Name Priority Date/Time Associated Diagnosis Comments GLUCOSE - POINT OF CARE Routine 03/23/2023 4:26 PM SNOW REMOVER GLUCOSE - POINT OF CARE Routine 03/23/2023 11:[address] LUMBAR SPINE W CONTRAST Routine 03/23/2023 8:37 AM SNOW REMOVER S/P insertion of spinal cord stimulator GLUCOSE - POINT OF CARE Routine 03/23/2023 7:25 AM SNOW REMOVER GLUCOSE - POINT OF CARE Routine 03/22/2023 7:30 PM SNOW REMOVER GLUCOSE - POINT OF CARE Routine 03/22/2023 4:55 PM SNOW REMOVER GLUCOSE - POINT OF CARE Routine 03/22/2023 11:54 AM SNOW REMOVER RENAL FUNCTION PANEL Routine 03/22/2023 10:28 AM SNOW REMOVER Acute cystitis without hematuria MAGNESIUM BLOOD Routine 03/22/2023 10:28 AM SNOW REMOVER Acute cystitis without hematuria CBC W AUTO DIFFERENTIAL Routine 03/22/2023 10:27 AM SNOW REMOVER Acute cystitis without hematuria GLUCOSE - POINT OF CARE Routine 03/22/2023 8:46 AM SNOW REMOVER GLUCOSE - POINT OF CARE Routine 03/21/2023 8:25 PM SNOW REMOVER GLUCOSE - POINT OF CARE Routine 03/21/2023 5:17 PM SNOW REMOVER CARDIAC EKG ORDER 03/21/2023 12: 44 PM SNOW REMOVER OT EVAL AND TREAT Routine 03/21/2023 12: 20 PM SNOW REMOVER GLUCOSE - POINT OF CARE Routine 03/21/2023 12:05 PM SNOW REMOVER GLUCOSE - POINT OF CARE Routine 03/21/2023 8:03 AM SNOW REMOVER GLUCOSE - POINT OF CARE Routine 03/20/2023 11:26 PM SNOW REMOVER GLUCOSE - POINT OF CARE Routine 03/20/2023 6:28 PM SNOW REMOVER GLUCOSE - POINT OF CARE Routine 03/20/2023 11:33 AM SNOW REMOVER GLUCOSE - POINT OF CARE Routine 03/20/2023 9:22 AM SNOW REMOVER CBC W/O DIFFERENTIAL STAT 03/20/2023 3:55 AM SNOW REMOVER Chronic left-sided low back pain, unspecified whether sciatica present COMPREHENSIVE METABOLIC PANEL STAT 03/20/2023 3:55 AM SNOW REMOVER Chronic left-sided low back pain, unspecified whether sciatica present PHOSPHORUS BLOOD STAT 03/20/2023 3:55 AM SNOW REMOVER Chronic left-sided low back pain, unspecified whether sciatica present MAGNESIUM BLOOD STAT 03/20/2023 3:55 AM SNOW REMOVER Chronic left-sided low back pain, unspecified whether sciatica present TROPONIN-I HIGH SENSITIVE REFLEX 1HOUR Timed 03/19/2023 7:36 PM SNOW REMOVER EKG 12-LEAD Routine 03/19/2023 1:57 PM SNOW REMOVER Weakness SARS-COV-2 (COVID-19) RAPID STAT 03/19/2023 1:50 PM SNOW REMOVER URINE MICROSCOPIC ONLY REFLEX TO CULTURE STAT 03/19/2023 1:50 PM SNOW REMOVER TROPONIN-I HIGH SENSITIVE BASELINE + 1HR STAT 03/19/2023 1:50 PM [facility] URINALYSIS REFLEX MICROSCOPIC REFLEX CULTURE STAT 03/19/2023 1:50 PM SN[facility]OVER C-REACTIVE PROTEIN MALDONADO 03/19/2023 1: 50 PM [facility]OVER CULTURE URINE STAT 03/19/2023 1:50 PM [facility]OVER ERYTHROCYTE SEDIMENTATION RATE STAT 03/19/2023 1:50 PM SNOW [facility]OVER CBC W AUTO DIFFERENTIAL STAT 03/19/2023 1:50 PM [facility] COMPREHENSIVE METABOLIC PANEL STAT 03/19/2023 1:50 PM [facility]OVER documented in this encounter Results * (ABNORMAL) GLUCOSE - POINT OF CARE (03/23/2023 4:26 PM SNOW REMOVER) Glucose WB/POC 166(H) 70 - 115 mg/dL 03/23/2023 4:27 PM [facility]OVER [facility] Specimen Type Cap Fingerstick 2022 4:27 PM [facility]OVER [facility] Blood BLOOD SPECIMEN / Unknown 03/23/2023 4:26 PM [facility] 03/23/2023 4:27 PM [facility]OVER Estrella Dunbar MD LAB - POINT OF CARE ORDERABLES [address] [address], [place] [phone] * (ABNORMAL) GLUCOSE - POINT OF CARE (03/23/2023 11:16 AM SNOW REMOVER) Glucose WB/POC 280(H) 70 - 115 mg/dL 03/23/2023 11:21 AM [facility] Specimen Type Cap Fingerstick 2022 11:21 AM [facility] Blood BLOOD SPECIMEN / Unknown 03/23/2023 11:16 AM [facility] 03/23/2023 11:21 AM [facility] Estrella Dunbar MD LAB - POINT OF CARE ORDERABLES [address] [address], [place] [phone] * CT LUMBAR SPINE W CONTRAST (03/23/2023 8:37 AM SNOW REMOVER) Anatomical Region Laterality Modality Spine Computed Tomogra phy 03/23/2023 10:5 0 AM SN[facility]OVER Impressions 03/23/2023 12:15 PM SNOW REMOVER IMPRESSION: 1.Spinal stimulator device is seen with [...] report is dictated by Mark Laboy MD (advanced manufacturing vice president) I, Bonifacio Carrillo MD have personally reviewed and interpreted this examination/study. > Interpreting Provider: Bonifacio Carrillo MD on 03/23/2023 12:15 PM Narrative 03/23/2023 12:15 PM [facility]OVER PROCEDURE: ??CT LUMBAR SPINE W CONTRAST, DATE/TIME OF EXAM: ??03/23/2023 8:38 AM, LOCATION ??[facility] INDICATION: Z96.89: S/P insertion of spinal [...] CONTRAST, DATE/TIME OF EXAM: 38:38 AM, LOCATION [facility] INDICATION: Z96.89: S/P insertion of spinal [...] AP, and CC dimensions respectively (series 5 [id number]; series 8 image 106), mildly increased compared [...] report is dictated by Mark Laboy MD (advanced manufacturing vice president) I, Bonifacio Carrillo MD have personally reviewed and interpreted this examination/study. > Interpreting Provider: Bonifacio Carrillo MD on 03/23/2023 12:15 PM Estrella Dunbar MD CT ORDERABLES * (ABNORMAL) GLUCOSE - POINT OF CARE (03/23/2023 7:25 AM SNOW REMOVER) Glucose WB/POC 156(H) 70 - 115 mg/dL 03/23/2023 8:06 AM [facility]OVER [facility] Specimen Type Cap Fingerstick 2022 8:06 AM [facility] Blood BLOOD SPECIMEN / Unknown 03/23/2023 7:25 AM [facility]OVER 03/23/2023 8:06 AM SN[facility]OVER Estrella Dunbar MD LAB - POINT OF CARE ORDERABLES Performing Organization Address [facility]/State/ZIP Co de Phone Number [facility] [address] [place] [address], [place] [phone] * (ABNORMAL) GLUCOSE - POINT OF CARE (03/22/2023 7:30 PM SNOW REMOVER) Glucose WB/POC 166(H) 70 - 115 mg/dL 03/22/2023 7:35 PM [facility] REMOVER [facility] Specimen Type Arterial 03/22/2023 7:35 PM [facility]OVER [facility] Blood BLOOD SPECIMEN / Unknown 03/22/2023 7:30 PM SN[facility] REMOVER 03/22/2023 7:35 PM SNOW REMOVER Estrella Dunbar MD LAB - POINT OF CARE ORDERABLES Performing Organization Address [facility]/ZIP Co de Phone Number [address] [address], [place] [phone] * (ABNORMAL) GLUCOSE - POINT OF CARE (03/22/2023 4:55 PM SNOW REMOVER) Glucose WB/POC 199(H) 70 - 115 mg/dL 03/22/2023 7:22 PM [facility] REMOVER [facility] Specimen Type Cap Fingerstick 2022 7:22 PM [facility]OVER [facility] Blood BLOOD SPECIMEN / Unknown 03/22/2023 4:55 PM SN[facility] REMOVER 03/22/2023 7:22 PM SN[facility] REMOVER Estrella Dunbar MD LAB - POINT OF CARE ORDERABLES Performing Organization Address [facility] Co de Phone Number [address] [address], [place] [phone] * (ABNORMAL) GLUCOSE - POINT OF CARE (03/22/2023 11:54 AM SNOW REMOVER) Glucose WB/POC 240(H) 70 - 115 mg/dL 03/22/2023 7:22 PM [facility]OVER [facility] Specimen Type Cap Fingerstick 2022 7:22 PM [facility]OVER [facility] Blood BLOOD SPECIMEN / Unknown 03/22/2023 11:54 AM [facility]OVER 03/22/2023 7:22 PM [facility] REMOVER Estrella Dunbar MD LAB - POINT OF CARE ORDERABLES Performing Organization Address City/[facility]/ZIP Co de Phone Number [address] [address], [place] [phone] * MAGNESIUM BLOOD (03/22/2023 10:28 AM SNOW REMOVER) Magnesium 1.6 1.6 - 2.6 mg/dL 03/22/2023 11:04 AM [facility]OVER [facility] Blood BLOOD SPECIMEN / Unknown Lab Venipuncture / Unknown 03/22/2023 10:28 AM [facility]OVER 03/22/2023 10:35 AM [place] Estrella Dunbar MD LAB - CHEMISTRY ANGEL Herrera Organization Address City/State/ZIP Co de Phone Number [facility] [address] [place] [address], [place] [phone] * (ABNORMAL) RENAL FUNCTION PANEL (03/22/2023 10:28 AM [place]) BUN 14 7 - 26 mg/dL 03/22/2023 11:04 AM [facility] Creatinine 0.89 0.56 - 0.96 mg/dL 03/22/2023 11:04 AM [facility] Sodium 137 136 - 145 mmol/L 03/22/2023 11:04 AM [facility] Potassium 4.2 3.5 - 4.5 mmol/L 03/22/2023 11:04 AM [facility] Chloride 100 98 - 107 mmol/L 03/22/2023 11:04 AM [facility] CO2 27 22 - 29 mmol/L 03/22/2023 11:04 AM [facility] Glucose 244(H) 70 - 115 mg/dL 03/22/2023 11:04 AM [facility] Albumin 3.4 3.4 - 5.0 g/dL 03/22/2023 11:04 AM [facility] Calcium 9.8 8.4 - 10.2 mg/dL 03/22/2023 11:04 AM [facility] Phosphorus 3.3 2.9 - 5.1 mg/dL 03/22/2023 11:04 AM [facility] Anion Gap 10 6 - 16 03/22/2023 11:04 AM [facility] BUN/Creatinine Ratio 16 7 - 23 03/22/2023 11:04 AM [facility] Osmolality Calculated 293 275 - 295 mOsm/kg 03/22/2023 11:04 AM [facility] eGFR by CKD-EPI 71(L) >=90 mL/min/1.7 3 m2 03/22/2023 11:04 AM [facility] Blood BLOOD SPECIMEN / Unknown Lab Venipuncture / Unknown 03/22/2023 10:28 AM [facility] 03/22/2023 10:35 AM [facility] Estrella Dunbar MD LAB - CHEMISTRY ANGEL SPEARS [facility] [address] [place] [address], [place] [phone] * (ABNORMAL) CBC W AUTO DIFFERENTIAL (03/22/2023 10:27 AM SNOW REMOVER) WBC 9.1 3.5 - 10.5 10? 3 /uL 03/22/2023 10:50 AM [facility] RBC 4.51 3.80 - 5.20 10? 6 /uL 03/22/2023 10:50 AM [facility] Hemoglobin 13.2 12.0 - 15.6 g/dL 03/22/2023 10:50 AM [facility] Hematocrit 41.5 35.0 - 45.0 % 03/22/2023 10:50 AM [facility] MCV 92.0 80.7 - 98.3 fL 03/22/2023 10:50 AM [facility] MCH 29.3 26.7 - 34.0 pg 03/22/2023 10:50 AM [facility] MCHC 31.8 30.8 - 35.9 g/dL 03/22/2023 10:50 AM [facility] RDW-SD 45.5 36.0 - 50.0 fL 03/22/2023 10:50 AM [facility] RDW-CV 13.4 11.2 - 14.8 % 03/22/2023 10:50 AM [facility] Platelet Count 290 150 - 400 10? 3 /uL 03/22/2023 10:50 AM [facility] MPV 10.0 9.4 - 12.9 fL 03/22/2023 10:50 AM [facility] nRBC Absolute 0.00 0 10? 3 /uL 03/22/2023 10:50 AM [facility] nRBC Auto 0.0 0 /100 WBC 03/22/2023 10:50 AM [facility] Neutrophils % 56.2 35.0 - 70.0 % 03/22/2023 10:50 AM [facility] Lymphocytes % 30.2 20.0 - 43.0 % 03/22/2023 10:50 AM [facility] Monocytes % 7.5 5.0 - 13.0 % 03/22/2023 10:50 AM [facility] Eosinophils % 5.3 0.0 - 6.0 % 03/22/2023 10:50 AM [facility] Basophil % 0.4 0.0 - 2.0 % 03/22/2023 10:50 AM [facility] Neutrophils Absolute 5.11 1.60 - 7.00 10? 3 /uL 03/22/2023 10:50 AM [facility] Lymphocyte Absolute 2.75 1.10 - 3.90 10? 3 /uL 03/22/2023 10:50 AM [facility] Monocytes Absolute 0.68 0.26 - 1.07 10? 3 /uL 03/22/2023 10:50 AM [facility] Eosinophils Absolute 0.48(H) 0.00 - 0.47 10? 3 /uL 03/22/2023 10:50 AM [facility] Basophils Absolute 0.04 0.00 - 0.08 10? 3 /uL 03/22/2023 10:50 AM [facility] Immature Granulocytes % 0.4 0.0 - 1.0 % 03/22/2023 10:50 AM [facility] Immature Granulocytes Absolute 0.04 03/22/2023 10:50 AM [facility] Blood BLOOD SPECIMEN / Unknown Lab Venipuncture / Unknown 03/22/2023 10:27 AM [facility] 03/22/2023 10:35 AM [place] Estrella Dunbar MD LAB - HEMATOLOGY ORD ERABLES [facility] [address] [place] [address], [place] [phone] * (ABNORMAL) GLUCOSE - POINT OF CARE (03/22/2023 8:46 AM [place]) Pathologist [facility] Glucose WB/POC 162(H) 70 - 115 mg/dL 03/22/2023 7:22 PM [facility] Specimen Type Cap Fingerstick 2022 7:22 PM [facility]OVER [facility] Blood BLOOD SPECIMEN / Unknown 03/22/2023 8:46 AM [facility]OVER 03/22/2023 7:22 PM [facility]OVER Estrella Dunbar MD LAB - POINT OF CARE ORDERABLES Performing Organization Address City/[facility]/ZIP Co de Phone Number [facility] [address] [place] [address], [place] [phone] * (ABNORMAL) GLUCOSE - POINT OF CARE (03/21/2023 8:25 PM SNOW REMOVER) Glucose WB/POC 220(H) 70 - 115 mg/dL 03/21/2023 8:30 PM [facility]OVER [facility] Specimen Type Cap Fingerstick 2022 8:30 PM [facility] Blood BLOOD SPECIMEN / Unknown 03/21/2023 8:25 PM [facility]OVER 03/21/2023 8:30 PM [facility]OVER Estrella Dunbar MD LAB - POINT OF CARE ORDERABLES Performing Organization Address City/[facility]/ZIP Co de Phone Number [facility] [address] [place] [address], [place] [phone] * (ABNORMAL) GLUCOSE - POINT OF CARE (03/21/2023 5:17 PM SNOW REMOVER) Glucose WB/POC 136(H) 70 - 115 mg/dL 03/21/2023 5:18 PM SN[facility]OVER [facility] Specimen Type Cap Fingerstick 2022 5:18 PM [facility] Blood BLOOD SPECIMEN / Unknown 03/21/2023 5:17 PM [facility]OVER 03/21/2023 5:18 PM SN[facility]OVER Estrella Dunbar MD LAB - POINT OF CARE ORDERABLES [facility] [address] [place] [address], [place] [phone] * CARDIAC EKG ORDER (03/21/2023 12:44 PM SNOW REMOVER) Narrative 03/21/2023 12:44 PM [facility]OVER Ordered by an unspecified provider. Scanned Document CARDIAC SERVICES ORD ERABLES * (ABNORMAL) GLUCOSE - POINT OF CARE (03/21/2023 12:05 PM SNOW REMOVER) Glucose WB/POC 152(H) 70 - 115 mg/dL 03/21/2023 12:06 PM [facility]OVER [facility] Specimen Type Cap Fingerstick 2022 12:06 PM [facility] Blood BLOOD SPECIMEN / Unknown 03/21/2023 12:05 PM [facility] 03/21/2023 12:06 PM [facility]OVER Estrella Dunbar MD LAB - POINT OF CARE ORDERABLES [address] [address], [place] [phone] * (ABNORMAL) GLUCOSE - POINT OF CARE (03/21/2023 8:03 AM SNOW REMOVER) Glucose WB/POC 169(H) 70 - 115 mg/dL 03/21/2023 12:06 PM SN[facility]OVER [facility] Specimen Type Cap Fingerstick 2022 12:06 PM [facility] Blood BLOOD SPECIMEN / Unknown 03/21/2023 8:03 AM [facility]OVER 03/21/2023 12:06 PM [facility]OVER Estrella Dunbar MD LAB - POINT OF CARE ORDERABLES [address] [address], [place] [phone] * (ABNORMAL) GLUCOSE - POINT OF CARE (03/20/2023 11:26 PM SNOW REMOVER) Glucose WB/POC 162(H) 70 - 115 mg/dL 03/20/2023 11:31 PM [facility] Specimen Type Cap Fingerstick 2022 11:31 PM [facility] Blood BLOOD SPECIMEN / Unknown 03/20/2023 11:26 PM [facility]OVER 03/20/2023 11:31 PM [facility]OVER Rosa Torres MD LAB - POINT OF CARE ORDERABLES [address] [address], [place] [phone] * (ABNORMAL) GLUCOSE - POINT OF CARE (03/20/2023 6:28 PM SNOW REMOVER) Glucose WB/POC 187(H) 70 - 115 mg/dL 03/20/2023 6:31 PM SN[facility]OVER [facility] Specimen Type Cap Fingerstick 2022 6:31 PM [facility] Blood BLOOD SPECIMEN / Unknown 03/20/2023 6:28 PM SN[facility] REMOVER 03/20/2023 6:31 PM [facility]OVER Estrella Dunbar MD LAB - POINT OF CARE ORDERABLES Performing Organization Address City/[facility]/ZIP Co de Phone Number [address] [address], [place] [phone] * (ABNORMAL) GLUCOSE - POINT OF CARE (03/20/2023 11:33 AM SNOW REMOVER) Glucose WB/POC 171(H) 70 - 115 mg/dL 03/20/2023 1:51 PM SN[facility]OVER [facility] Specimen Type Cap Fingerstick 2022 1:51 PM [facility] Blood BLOOD SPECIMEN / Unknown 03/20/2023 11:33 AM [facility]OVER 03/20/2023 1:51 PM SN[facility]OVER Estrella Dunbar MD LAB - POINT OF CARE ORDERABLES [address] [address], [place] [phone] * (ABNORMAL) GLUCOSE - POINT OF CARE (03/20/2023 9:22 AM SNOW REMOVER) Glucose WB/POC 147(H) 70 - 115 mg/dL 03/20/2023 9:23 AM [facility] Specimen Type Cap Fingerstick 2022 9:23 AM [facility] Blood BLOOD SPECIMEN / Unknown 03/20/2023 9:22 AM [facility] 03/20/2023 9:23 AM SN[facility]OVER Estrella Dunbar MD LAB - POINT OF CARE ORDERABLES [facility] [address] [place] [address], [place] [phone] * (ABNORMAL) CBC W/O DIFFERENTIAL (03/20/2023 3:55 AM SNOW REMOVER) WBC 10.2 3.5 - 10.5 10? 3 /uL 03/20/2023 4:26 AM [facility] RBC 3.98 3.80 - 5.20 10? 6 /uL 03/20/2023 4:26 AM [facility] Hemoglobin 11.3(L) 12.0 - 15.6 g/dL 03/20/2023 4:26 AM [facility] Hematocrit 36.3 35.0 - 45.0 % 03/20/2023 4:26 AM [facility] MCV 91.2 80.7 - 98.3 fL 03/20/2023 4:26 AM [facility] MCH 28.4 26.7 - 34.0 pg 03/20/2023 4:26 AM [facility] MCHC 31.1 30.8 - 35.9 g/dL 03/20/2023 4:26 AM [facility] RDW-SD 44.9 36.0 - 50.0 fL 03/20/2023 4:26 AM [facility] RDW-CV 13.3 11.2 - 14.8 % 03/20/2023 4:26 AM [facility] Platelet Count 243 150 - 400 10? 3 /uL 03/20/2023 4:26 AM [facility] MPV 9.9 9.4 - 12.9 fL 03/20/2023 4:26 AM [facility] nRBC Absolute 0.00 0 10? 3 /uL 03/20/2023 4:26 AM [facility] nRBC Auto 0.0 0 /100 WBC 03/20/2023 4:26 AM [facility] Blood BLOOD SPECIMEN / Unknown Venipuncture / Unknown 03/20/2023 3:55 AM [facility] 03/20/2023 4:11 AM [facility] Coco Harris MD LAB - HEMATOLOGY ORD NEGRITA Performing Organization Address City/[facility]/ZIP Co de Phone Number [address] [address], [place] [phone] * PHOSPHORUS BLOOD (03/20/2023 3:55 AM SNOW REMOVER) Phosphorus 2.9 2.9 - 5.1 mg/dL 03/20/2023 4:41 AM SN[facility]OVER [facility] Blood BLOOD SPECIMEN / Unknown Venipuncture / Unknown 03/20/2023 3:55 AM [facility]OVER 03/20/2023 4:11 AM [facility] Coco Harris MD LAB - CHEMISTRY ORDNicholas SPEARS Performing Organization Address City/[facility]/ZIP Co de Phone Number [address] [address], [place] [phone] * MAGNESIUM BLOOD (03/20/2023 3:55 AM SNOW REMOVER) Magnesium 1.7 1.6 - 2.6 mg/dL 03/20/2023 4:41 AM SN[facility]OVER [facility] Blood BLOOD SPECIMEN / Unknown Venipuncture / Unknown 03/20/2023 3:55 AM [facility] 03/20/2023 4:11 AM [facility] Coco Harris MD LAB - CHEMISTRY ORDNicholas SPEARS [address] [address], [place] [phone] * (ABNORMAL) COMPREHENSIVE METABOLIC PANEL (03/20/2023 3:55 AM SNOW REMOVER) BUN 9 7 - 26 mg/dL 03/20/2023 4:41 AM [facility] Creatinine 0.71 0.56 - 0.96 mg/dL 03/20/2023 4:41 AM [facility] Sodium 138 136 - 145 mmol/L 03/20/2023 4:41 AM [facility] Potassium 4.0 3.5 - 4.5 mmol/L 03/20/2023 4:41 AM [facility] Chloride 104 98 - 107 mmol/L 03/20/2023 4:41 AM [facility] CO2 24 22 - 29 mmol/L 03/20/2023 4:41 AM [facility] Glucose 212(H) 70 - 115 mg/dL 03/20/2023 4:41 AM [facility] Calcium 8.8 8.4 - 10.2 mg/dL 03/20/2023 4:41 AM [facility] Protein Total 7.1 6.0 - 8.3 g/dL 03/20/2023 4:41 AM [facility] Albumin 2.9(L) 3.4 - 5.0 g/dL 03/20/2023 4:41 AM [facility] Bilirubin Total 0.5 0.2 - 1.2 mg/dL 03/20/2023 4:41 AM [facility] Alkaline Phosphatase 65 40 - 150 U/L 03/20/2023 4:41 AM [facility] ALT 14 5 - 55 U/L 03/20/2023 4:41 AM [facility] AST 14 5 - 34 U/L 03/20/2023 4:41 AM [facility] Anion Gap 10 6 - 16 03/20/2023 4:41 AM [facility] BUN/Creatinine Ratio 13 7 - 23 03/20/2023 4:41 AM [facility] Osmolality Calculated 291 275 - 295 mOsm/kg 03/20/2023 4:41 AM [facility] Albumin/Globulin Ratio 0.7(L) 1.1 - 2.3 03/20/2023 4:41 AM [facility] eGFR by CKD-EPI >90 >=90 mL/min/1.7 3 m2 03/20/2023 4:41 AM [facility] Blood BLOOD SPECIMEN / Unknown Venipuncture / Unknown 03/20/2023 3:55 AM [facility] 03/20/2023 4:11 AM [facility] Ccoo Harris MD LAB - CHEMISTRY ANGEL SPEARS [facility] [address] [place] [address], [place] [phone] * TROPONIN-I HIGH SENSITIVE REFLEX 1HOUR (03/19/2023 7:36 PM SNOW REMOVER) [facility] Troponin I High Sensitive <3 <=14 ng/L 03/19/2023 8:19 PM SNOW REMOVER [facility] Delta Troponin I HS 03/19/2023 8:19 PM SN[facility] REMOVER [facility] Comment:Delta value intentio yissel not calculated. Baseline to 1 hour specimen collection interval exceeded. Blood BLOOD SPECIMEN / Unknown Venipuncture / Unknown 03/19/2023 7:36 PM [facility] 03/19/2023 7:44 PM SN[facility]OVER Sisi Ricks PA-C LAB - CHEMISTRY OR DERABLES Performing Organization Address City/[facility]/ZIP Co de Phone Number [address] [address], [place] [phone] * EKG 12-LEAD (03/19/2023 1:57 PM SNOW REMOVER) [facility] Ventricular Rate 79 BPM [facility]USE Atrial Rate 79 BPM [facility] MUSE P-R Interval 132 ms [facility] MUSE QRS Duration ms 82 ms [facility] MUSE Q-T Interval ms 378 ms [facility] MUSE QTC Calculation (Bezet) 433 ms [facility] MUSE Calculated P [place] 13 degrees [facility] MUSE Calculated R [place] 12 degrees [facility] MUSE Calculated T [place] 45 degrees SL MUSE Interpretation EKG NORMAL SINUS RHYTHM NORMAL ECG WHEN COMPARED WITH ECG OF 21-FEB-2023 18:42, NONSPECIFIC T WAVE ABNORMALITY NO LONGER EVIDENT IN ANTERIOR LEADS Confirmed by FELIPE ??, BENJI ([id number]) on 03/19/2023 9:14:45 PM [facility] MUSE 03/19/2023 1:57 PM [facility] 03/19/2023 9:14 PM [facility]OVER Sisi Ricks PA-C ECG ORDERABLES [facility] * (ABNORMAL) CULTURE URINE (03/19/2023 1:50 PM SNOW REMOVER) Culture Urine >100,000 CFU/mL Escherichia coli(A) TERRANCE 03/21/2023 7:16 AM SNOW REMOVER [facility] Urine URINE SPECIMEN OBTAINED BY CLEAN CATCH PROCEDURE / Unknown Collection / Unknown 03/19/2023 1:50 PM [facility]OVER 03/19/2023 3:38 PM [facility] Narrative Organism Antibiotic Method Susceptibility Escherichia coli [...] Sisi Ricks PA-C LAB - MICROBIOLOGY ORDERABLES [facility] [address] [place] [address], [place] [phone] * (ABNORMAL) URINE MICROSCOPIC ONLY REFLEX TO CULTURE (03/19/2023 1:50 PM SNOW REMOVER) Reflex Status Culture to follow 03/19/2023 3:38 PM SNOW REMOVER [facility] RBC UA 3-5 None Seen, 0-2, 3-5 /HPF 03/19/2023 3:38 PM SNOW REMOVER [facility] WBC UA 11-20(A) None Seen, 0-5 /HPF 03/19/2023 3:38 PM SN[facility] REMOVER [facility] Bacteria UA Trace(A) None /HPF 03/19/2023 3:38 PM SNOW REMOVER [facility] Squamous Epithelial Cells UA 0-2 None Seen, 0-2, 3-5 /HPF 03/19/2023 3:38 PM [facility] [employer] Mucus UA 1+ /LPF 03/19/2023 3:38 PM [facility] Urine URINE SPECIMEN OBTAINED BY CLEAN CATCH PROCEDURE / Unknown Collection / Unknown 03/19/2023 1:50 PM [facility] 03/19/2023 1:55 PM [facility] - 03/19/2023 3:38 PM [facility] Sisi Ricks PA-C LAB - URINALYSIS O RDERABLES [facility] [address] [place] [address], [place] [phone] * SARS-COV-2 (COVID-19) RAPID (03/19/2023 1:50 PM [facility]) COVID-19 PCR Not detected Not detected 03/19/20 2:29 PM [employer] [employer] Microbiology SPECIMEN FROM NASOPHARYNGEAL STRUCTURE / Unknown Collection / Unknown 03/19/2023 1:50 PM [facility] 03/19/2023 1:55 PM [facility] Narrative [facility] - 03/19/2023 2:29 PM [facility] [employer] The [employer]ep[employer] Xpert Xpress SARS-COV-2 has been [...] Sisi Ricks PA-C LAB - MICROBIOLOGY ORDERABLES [address] [address], [place] [phone] * TROPONIN-I HIGH SENSITIVE BASELINE + 1HR (03/19/2023 1:50 PM [facility]) Troponin I High Sensitive <3 <=14 ng/L 03/19/2023 2:32 PM [facility] Blood BLOOD SPECIMEN / Unknown Venipuncture / Unknown 03/19/2023 1:50 PM [facility] 03/19/2023 1:59 PM [facility] [employer] Sisi Ricks PA-C LAB - CHEMISTRY OR DERABLES [address] [address], [place] [phone] * (ABNORMAL) URINALYSIS REFLEX MICROSCOPIC REFLEX CULTURE (03/19/2023 1:50 PM [facility]) Color UA Yellow Straw, Yellow 03/19/2023 2:09 PM [facility] Clarity UA Clear Clear 03/19/2023 2:09 PM [facility] Specific [place] UA 1.014 1.005 - 1.030 03/19/2023 2:09 PM [facility] pH UA 6.0 5.0 - 8.0 pH 03/19/2023 2:09 PM [facility] Protein UA Negative Negative 03/19/2023 2:09 PM [facility] Glucose UA 3+(A) Negative 03/19/2023 2:09 PM [facility] Ketone UA Negative Negative 03/19/2023 2:09 PM [facility] Bilirubin UA Negative Negative 03/19/2023 2:09 PM [facility] Blood UA 1+(A) Negative 03/19/2023 2:09 PM [facility] Nitrite UA Negative Negative 03/19/2023 2:09 PM [facility] Leukocyte Esterase Trace(A) Negative 03/19/2023 2:09 PM [facility] Urobilinogen UA Negative Negative mg/dL 03/19/2023 2:09 PM [facility] Urine URINE SPECIMEN OBTAINED BY CLEAN CATCH PROCEDURE / Unknown Collection / Unknown 03/19/2023 1:50 PM [facility] 03/19/2023 1:55 PM [facility] - 03/19/2023 2:09 PM [facility] Sisi Ricks PA-C LAB - URINALYSIS O RDERABLES Performing Organization Address City/State/[facility] Co de Phone Number [facility] [address] [place] [phone], [place] [phone] * (ABNORMAL) C-REACTIVE PROTEIN (03/19/2023 1:50 PM SNOW [facility]OVER) C-Reactive Protein 3.0(H) <=0.5 mg/dL 03/19/2023 2:45 PM [facility] Blood BLOOD SPECIMEN / Unknown Venipuncture / Unknown 03/19/2023 1:50 PM [facility] 03/19/2023 1:55 PM [facility] Sisi Ricks PA-C LAB - CHEMISTRY OR DERABLES Performing Organization Address City/[facility]/ZIP Co de Phone Number [address] [address], [place] [phone] * (ABNORMAL) ERYTHROCYTE SEDIMENTATION RATE (03/19/2023 1:50 PM SN[facility]OVER) Erythrocyte Sedimentation Rate Westergren 101(H) 0 - 30 MM/HR 03/19/2023 2:08 PM [facility] Blood BLOOD SPECIMEN / Unknown Venipuncture / Unknown 03/19/2023 1:50 PM [facility] 03/19/2023 1:59 PM [facility] Sisi Ricks PA-C LAB - HEMATOLOGY O RDERABLES Performing Organization Address [facility]/ZIP Co de Phone Number [address] [address], [place] [phone] * (ABNORMAL) COMPREHENSIVE METABOLIC PANEL (03/19/2023 1:50 PM SN[facility]OVER) BUN 10 7 - 26 mg/dL 03/19/2023 2:26 PM [facility] Creatinine 0.75 0.56 - 0.96 mg/dL 03/19/2023 2:26 PM [facility] Sodium 138 136 - 145 mmol/L 03/19/2023 2:26 PM [facility] Potassium 3.8 3.5 - 4.5 mmol/L 03/19/2023 2:26 PM [facility] Chloride 103 98 - 107 mmol/L 03/19/2023 2:26 PM [facility] CO2 26 22 - 29 mmol/L 03/19/2023 2:26 PM [facility] Glucose 227(H) 70 - 115 mg/dL 03/19/2023 2:26 PM [facility] Calcium 9.6 8.4 - 10.2 mg/dL 03/19/2023 2:26 PM [facility] Protein Total 8.4(H) 6.0 - 8.3 g/dL 03/19/2023 2:26 PM [facility] Albumin 3.4 3.4 - 5.0 g/dL 03/19/2023 2:26 PM [facility] Bilirubin Total 0.6 0.2 - 1.2 mg/dL 03/19/2023 2:26 PM [facility] Alkaline Phosphatase 75 40 - 150 U/L 03/19/2023 2:26 PM [facility] ALT 17 5 - 55 U/L 03/19/2023 2:26 PM [facility] AST 16 5 - 34 U/L 03/19/2023 2:26 PM [facility] Anion Gap 9 6 - 16 03/19/2023 2:26 PM [facility] BUN/Creatinine Ratio 13 7 - 23 03/19/2023 2:26 PM [facility] Osmolality Calculated 292 275 - 295 mOsm/kg 03/19/2023 2:26 PM [facility] Albumin/Globulin Ratio 0.7(L) 1.1 - 2.3 03/19/2023 2:26 PM [facility] eGFR by CKD-EPI 88(L) >=90 mL/min/1.7 3 m2 03/19/2023 2:26 PM [facility] Blood BLOOD SPECIMEN / Unknown Venipuncture / Unknown 03/19/2023 1:50 PM [facility] 03/19/2023 1:59 PM [place] Sisi Ricks PA-C LAB - CHEMISTRY OR DERABLES Performing Organization Address [facility] Co de Phone Number [facility] [address] [place] [phone] [phone] * CBC W AUTO DIFFERENTIAL (03/19/2023 1:50 PM SN[facility]OVER) WBC 9.2 3.5 - 10.5 10? 3 /uL 03/19/2023 2:02 PM [facility] RBC 4.34 3.80 - 5.20 10? 6 /uL 03/19/2023 2:02 PM [facility] Hemoglobin 12.8 12.0 - 15.6 g/dL 03/19/2023 2:02 PM [facility] Hematocrit 39.9 35.0 - 45.0 % 03/19/2023 2:02 PM [facility] MCV 91.9 80.7 - 98.3 fL 03/19/2023 2:02 PM [facility] MCH 29.5 26.7 - 34.0 pg 03/19/2023 2:02 PM [facility] MCHC 32.1 30.8 - 35.9 g/dL 03/19/2023 2:02 PM [facility] RDW-SD 45.5 36.0 - 50.0 fL 03/19/2023 2:02 PM [facility] RDW-CV 13.3 11.2 - 14.8 % 03/19/2023 2:02 PM [facility] Platelet Count 249 150 - 400 10? 3 /uL 03/19/2023 2:02 PM [facility] MPV 9.9 9.4 - 12.9 fL 03/19/2023 2:02 PM [facility] nRBC Absolute 0.00 0 10? 3 /uL 03/19/2023 2:02 PM [facility] nRBC Auto 0.0 0 /100 WBC 03/19/2023 2:02 PM [facility] Neutrophils % 61.4 35.0 - 70.0 % 03/19/2023 2:02 PM [facility] Lymphocytes % 27.5 20.0 - 43.0 % 03/19/2023 2:02 PM [facility] Monocytes % 7.5 5.0 - 13.0 % 03/19/2023 2:02 PM [facility] Eosinophils % 2.6 0.0 - 6.0 % 03/19/2023 2:02 PM [facility] Basophil % 0.3 0.0 - 2.0 % 03/19/2023 2:02 PM [facility] Neutrophils Absolute 5.65 1.60 - 7.00 10? 3 /uL 03/19/2023 2:02 PM [facility] Lymphocyte Absolute 2.53 1.10 - 3.90 10? 3 /uL 03/19/2023 2:02 PM [facility] Monocytes Absolute 0.69 0.26 - 1.07 10? 3 /uL 03/19/2023 2:02 PM [facility] Eosinophils Absolute 0.24 0.00 - 0.47 10? 3 /uL 03/19/2023 2:02 PM [facility] Basophils Absolute 0.03 0.00 - 0.08 10? 3 /uL 03/19/2023 2:02 PM [facility] Immature Granulocytes % 0.7 0.0 - 1.0 % 03/19/2023 2:02 PM [facility] Immature Granulocytes Absolute 0.06 03/19/2023 2:02 PM [facility] Blood BLOOD SPECIMEN / Unknown Venipuncture / Unknown 03/19/2023 1:50 PM [facility] 03/19/2023 1:59 PM [place] Sisi Ricks PA-C LAB - HEMATOLOGY O RDERABLES Performing Organization Address City/State/[facility] Co de Phone Number [facility] [address] [place] [address], [place] [phone] documented in this encounter Visit Diagnoses Diagnosis [...] 8 hours. $ Given 03/23/2023 1:08 PM [facility] 3 mL $ Given 03/22/2023 9:11 PM [facility] 3 mL $ Given 03/21/2023 9:27 PM [facility] 3 mL acetaminophen (Tylenol) tablet 1,000 mg [...] the MAR. $ Given 03/22/2023 3:45 PM [facility] 1,000 mg $ Given 03/22/2023 8:44 AM [facility] 1,000 mg $ Given 03/21/2023 8:13 PM [facility] 1,000 mg amitriptyline (Elavil) tablet 25 mg 25 mg, Oral, AT BEDTIME, First dose on Mon03/20/23 at 2100, Until Discontinued $ Given 03/22/2023 8:10 PM [facility] 25 mg $ Given 03/21/2023 8:13 PM [facility] 25 mg $ Given 03/20/2023 9:41 PM [facility] 25 mg cyclobenzaprine (Flexeril) tablet 10 mg 10 mg, Oral, NOW, 1 dose, On Mon03/20/23 at 0215 $ Given 03/20/2023 2:20 AM [facility] 10 mg dextrose 10 % IV bolus [...] at 1145 $ Given 03/22/2023 3:45 PM [facility] 50 mg $ Given 03/22/2023 7:01 AM [facility] 50 mg $ Given 03/21/2023 1:11 PM [facility] 50 mg diphenhydrAMINE (Benadryl) capsule 50 mg 50 mg, Oral, EVERY 6 HOURS PRN, Itching, Starting on Mon03/23/23 at 1145, Until Mon03/23/23 at 1914 $ Given 03/23/2023 12:16 PM [facility] 50 mg exemestane (Aromasin) tablet 25 mg 25 mg, Oral, DAILY, First dose on Mon03/20/23 at 0900, Until Discontinued $ Given 03/23/2023 9:25 AM SN[facility]OVER 25 mg $ Given 03/22/2023 10:20 AM [facility] 25 mg $ Given 03/21/2023 9:16 AM [facility] 25 mg glucagon (Glucagen) injection 1 mg [...] Until Discontinued $ Given 03/23/2023 9:25 AM [facility] 12.5 mg $ Given 03/22/2023 8:44 AM [facility] 12.5 mg $ Given 03/21/2023 9:11 AM SN[facility]OVER 12.5 mg HYDROcodone-acetaminophen (Aulander) 5-325 MG tablet 1 tablet 1 tablet, [...] the MAR. $ Given 03/19/2023 11:18 PM [facility] 1 tablet hydrocortisone (Hytone) 1 % cream Topical, 2 TIMES DAILY, First dose on Mon03/21/23 at 1300, Until Discontinued, Apply to area around left buttock $ Given 03/23/2023 9:28 AM [facility]OVER $ Given 03/22/2023 8:10 PM [facility] $ Given 03/22/2023 10:20 AM [facility] HYDROmorphone (Dilaudid) injection 0.4 mg 0.4 mg, [...] the MAR. $ Given 03/20/2023 2:54 AM [facility] 0.4 m g HYDROmorphone (Dilaudid) injection 0.4 [...] the MAR. $ Given 03/20/2023 1:48 PM [facility] 0.4 mg $ Given 03/20/2023 8:28 AM [facility]OVER 0.4 mg HYDROmorphone (Dilaudid) injection 0.4 mg [...] the MAR. $ Given 03/22/2023 10:36 PM [facility] 0.4 mg $ Given 03/21/2023 5:36 PM [facility] 0.4 mg $ Given 03/21/2023 7:22 AM [facility] 0.4 mg hydrOXYzine HCl (Atarax) tablet 25 mg 25 mg, Oral, 3 TIMES DAILY PRN, Itching, Starting on Mon03/20/23 at 0958, Until Valeri 03/23/23 at 1914 $ Given 03/23/2023 5:08 PM [facility] 25 mg $ Given 03/23/2023 9:24 AM [facility] 25 mg $ Given 03/22/2023 10:42 PM [facility] 25 mg hydrOXYzine HCl (Atarax) tablet 25 mg 25 mg, Oral, Once, 1 dose, On Mon03/22/23 at 1645 $ Given 03/22/2023 4:42 PM [facility] 25 mg hydrOXYzine HCl (Atarax) tablet 50 mg 50 mg, Oral, NOW, 1 dose, On 11/27/23 at 0015 $ Given 03/20/2023 12:47 AM [facility] 50 mg insulin aspart (NovoLOG) pen 0-12 [...] same time. $ Given 03/23/2023 5:21 PM [facility] 2 Units Right Arm $ Given 03/23/2023 12:17 PM [facility] 8 Units R ight Arm $ Given 03/23/2023 9:27 AM [facility]OVER 10 Units Ri ght Arm insulin aspart (NovoLOG) pen 12 Units 12 Units, Subcutaneous, 3 TIMES DAILY WITH MEALS, First dose on Mon03/20/23 at 0800, Until Discontinued, MEALTIME INSULIN Hold MEALTIME insulin if patient is NPO or eating less than 50% of meals. -OR- if carb intake for the meal is less than 30 grams. $ Given 03/21/2023 12:21 PM [facility] 12 Units Abd Right Upper Quadrant $ Given 03/21/2023 9:58 AM [facility]OVER 12 Units Le ft Arm $ Given 03/20/2023 11:33 AM [facility]OVER 12 Units A bdominal Tissue insulin aspart (NovoLOG) pen 8 Units 8 Units, Subcutaneous, 3 TIMES DAILY WITH MEALS, First dose (after last modification) on Mon03/21/23 at 1800, Until Discontinued, MEALTIME INSULIN Hold MEALTIME insulin if patient is NPO or eating less than 50% of meals. -OR- if carb intake for the meal is less than 30 grams. $ Given 03/23/2023 5:21 PM [facility]OVER 8 Units Right Arm $ Given 03/23/2023 12:17 PM [facility]OVER 8 Units R ight Arm $ Given 03/23/2023 9:27 AM [facility]OVER 8 Units Ri ght Arm insulin glargine (Lantus) pen 5 Units 5 Units, Subcutaneous, AT BEDTIME, First dose on Mon03/21/23 at 2100, Until Discontinued, ............. DO NOT HOLD even if patient is NPO Consider calling physician for dose reduction if patient is made NPO. Body mass index is 51.58 kg/m??. . WASTE DISPOSAL INSTRUCTIONS: Black Bin Disposal required. $ Given 03/22/2023 8:57 PM [facility]OVER 5 Units Right Arm $ Given 03/21/2023 9:27 PM [facility]OVER 5 Units Ri ght Arm iopamidol (Isovue 370) 76 % contrast Intravenous, CONTRAST ONCE, Starting on Mon03/23/23 at 0822, Until Mon03/23/23 at 191 $ Given - Contrast 03/23/2023 8:22 AM SN[facility]OVER 100 mL methocarbamol (Robaxin) tablet 500 mg 500 mg, Oral, EVERY 6 HOURS PRN, Muscle Spasms, Starting on Mon03/20/23 at 1737, Until Mon03/23/23 at 1914 $ Given 03/22/2023 7:04 PM [facility] 500 mg $ Given 03/21/2023 8:13 PM [facility] 500 mg $ Given 03/21/2023 1:11 PM [facility] 500 mg nitrofurantoin monohyd macro crystals (Macrobid) capsule 100 mg 100 mg, Oral, 2 TIMES DAILY, First dose on Mon03/20/23 at 1115, Until Discontinued, Indication for anti-infective therapy: Suspected infection, Site of anti-infective therapy: Urine/Genitourinary $ Given 03/23/2023 9:25 AM [facility]OVER 100 mg $ Given 03/22/2023 8:10 PM [facility] 100 mg $ Given 03/22/2023 10:20 AM [facility]OVER 100 mg ondansetron (disintegrating) (Zofran ODT) tablet 4 mg 4 mg, Oral, EVERY 6 HOURS PRN, Nausea/Vomiting, Starting on Mon03/20/23 at 0337, Until Mon03/23/23 at 1914, Dissolved orally on tongue $ Given 03/21/2023 12:26 PM [facility] 4 mg $ Given 03/20/2023 1:48 PM [facility]OVER 4 mg ondansetron (Zofran) injection 4 mg 4 mg, Intravenous, EVERY 6 HOURS PRN, Nausea/Vomiting, Starting on Mon03/20/23 at 0337, Until Valeri 03/23/23 at 1914, Administer IV if patient is NPO, actively vomiting, or unable to swallow. $ Given 03/22/2023 12:48 PM [facility] 4 mg oxyCODONE (immediate release) (Roxicodone) tablet [...] the MAR. $ Given 03/23/2023 5:08 PM [facility] 10 mg $ Given 03/23/2023 1:08 PM [facility] 10 mg $ Given 03/23/2023 9:24 AM [facility] 10 mg oxyCODONE (immediate release) (Roxicodone) tablet [...] the MAR. $ Given 03/22/2023 6:12 AM [facility] 5 mg polyethylene glycol 3350 (Miralax) packet 17 g 17 g, Oral, DAILY, 3 doses, First dose (after last modification) on Mon03/20/23 at 0900, Last dose on Mon03/22/23 at 0900, Mix in 8 ounces of water, juice, soda, coffee or tea prior to administration $ Given 03/22/2023 8:44 AM [facility]OVER 17 g $ Given 03/21/2023 9:04 AM [facility]OVER 17 g rivaroxaban (Xarelto) tablet 20 mg 20 mg, Oral, DAILY WITH FOOD, First dose on Mon03/20/23 at 0900, Until Discontinued, For tube administration, please refer to the MAR References links: Administration Dose of 15 mg or greater should be taken with food $ Given 03/22/2023 8:44 AM CS T 20 mg $ Given 03/21/2023 9:06 AM [facility]OVER 20 mg $ Given 03/20/2023 8:28 AM SN[facility]OVER 20 mg rOPINIRole (Requip) tablet 5 mg 5 mg, Oral, AT BEDTIME, First dose on Mon03/20/23 at 2100, Until Discontinued $ Given 03/22/2023 8:10 PM [facility]OVER 5 mg $ Given 03/21/2023 8:13 PM [facility] 5 mg $ Given 03/20/2023 9:41 PM [facility]OVER 5 mg rOPINIRole (Requip) tablet 5 mg 5 mg, Oral, Once, 1 dose, On Mon03/20/23 at 0415 $ Given 03/20/2023 4:16 AM [facility]OVER 5 mg documented in this encounter Active and Recently Administered Medications Times are shown in [facility]. Scheduled Medication Order 03/21/2023 03/22/2023 03/23/2023 0.9% [...] Discontinued 2012 ($ Given - Provider: Harry Spaers, NURIS) 2009 ($ Given - Provider: Harry [...] RN) 0701 ($ Given - Provider: Gunnar Johnston RN)1545 ($ Given - Provider: Mirlande Ahuja, [...] Duran RN)1708 (See Alternative - Provider: Jos Duran RN) Linked Groups Order Group 1: SALINE [...] MAR. documented in this encounter Care Teams Skein Winding Operator Relationship Specialty Start Date End Date Justen Gale MD PCP - General 07/05/21 documented as of this encounter
--- OUTSIDE RECORDS SUMMARY | 2024-04-26 06:53 | XMS_ITS | Encounter Summary ---
Author Organization [facility] Address [address] [place] [address] Care Team Providers Care Steward/Stewardess Third Name Role Phone Justen Gale MD Primary Care Provider [phone] Reason for Visit * Reason Comments POST-OP [...] (Late Contact Info) Description 03/25/2023 12:58 PM CLINICAL OPERATIONS CONSULTANT - 03/25/2023 1:[address] [facility] Emergency [facility] EMERGENCY DEPARTMENT [address] [place] [phone] SOB (shortness of breath) Discharge Disposition: Left [...] and heating? Not hard at all 02/22/2023 [facility] - Occupational Stress Questionnaire Answer Date Recorded [...] in a care home (including now)? No 02/22/2023 Sex and Gender Information Value Date Recorded Sex Assigned at Not on file Gender Identity Not on file Sexual Orientation Not on file documented as of this encounter Last Filed Vital Signs Vital Sign Reading Time Taken Comments Blood Pressure 145/87 03/25/2023 11:11 AM CLINICAL OPERATIONS CONSULTANT Pulse 102 03/25/2023 11:11 AM CLINICAL OPERATIONS CONSULTANT Temperature 36.4 ??C (97.6 ??F) 03/25/2023 7:39 AM CS T Respiratory Rate 22 03/25/2023 11:11 AM CLINICAL OPERATIONS CONSULTANT Oxygen Saturation 97% 03/25/2023 11:11 AM CLINICAL OPERATIONS CONSULTANT Inhaled Oxygen Concentration - - Weight 123.8 kg (273 lb) 03/24/2023 10:51 PM CLINICAL OPERATIONS CONSULTANT Height 154.9 cm (5' 1 ) 03/24/2023 10:51 PM CLINICAL OPERATIONS CONSULTANT Body Mass Index 51.58 03/24/2023 10:51 PM CLINICAL OPERATIONS CONSULTANT documented in this encounter Functional Status [...] mouth once daily 07/17/2022 05/19/2023 HYDROcodone-acetaminop hen ([place]) 10-325 MG tablet Take 1 (one) tablet [...] - 03/25/2023 12:57 PM CST AMA uploaded ICAL OPERATIONS CONSULTANT * Yeni Ramirez RN - 03/25/2023 12:42 [...] was calling her ride to go home. ICAL OPERATIONS CONSULTANT * Brady Gutierrez PA-Ana Laura - 03/25/2023 [...] Epi Solitario MD 4 mg at 03/24/23 7724 Current Outpatient Medications Medication Sig Dispense Refill ??? amitriptyline (ELAVIL) 25 MG tablet at bedtime ??? exemestane (AROMASIN) 25 MG tablet Take 1 (one) tablet by mouth DAILY ??? HumaLOG KwikPen 100 UNIT/ML pen 22 (twenty two) Units 3 times daily before meals ??? hydroCHLOROthiazide (Microzide) 12.5 MG capsule Take 1 (one) capsule by mouth once daily ??? HYDROcodone-acetaminophen ([place]) 7.5-325 MG tablet Take 1 (one) tablet [...] sign the AMA form. Brady Gutierrez PA-C ICAL OPERATIONS CONSULTANT * Maira Elizondo - 03/25/2023 11:11 AM CST Provided w/ specimen cup ICAL OPERATIONS CONSULTANT * Maira Elizondo - 03/25/2023 10:36 AM CST Pt in waiting room, NAD noted, no request at this time. ICAL OPERATIONS CONSULTANT Maira Osei - 03/25/2023 9:28 AM CST Pt in waiting room, c/o pain from sitting and waiting, NAD noted. PA notified. ICAL OPERATIONS CONSULTANT * Maira Elizondo - 03/25/2023 7:41 AM CST Pt in waiting room, NAD noted, educated on waiting room process ICAL OPERATIONS CONSULTANT * Brittaney Nova RN - 03/24/2023 11:07 [...] THE BATTERY IN THE LOWER LUMBAR REGION ICAL OPERATIONS CONSULTANT documented in this encounter Plan of Treatment Not on file documented as of this encounter Procedures Procedure Name Priority Date/Time Associated Diagnosis Comments CARDIAC EKG ORDER 03/27/2023 2:3 0 PM CLINICAL OPERATIONS CONSULTANT URINE MICROSCOPIC ONLY REFLEX TO CULTURE STAT 03/25/2023 11:23 AM CLINICAL OPERATIONS CONSULTANT URINALYSIS REFLEX MICROSCOPIC REFLEX CULTURE STAT 03/25/2023 11:23 AM CLINICAL OPERATIONS CONSULTANT GLUCOSE - POINT OF CARE Routine 03/25/2023 9:27 AM CLINICAL OPERATIONS CONSULTANT CBC W AUTO DIFFERENTIAL STAT 03/24/2023 11:38 PM CLINICAL OPERATIONS CONSULTANT COMPREHENSIVE METABOLIC PANEL STAT 03/24/2023 11:38 PM CLINICAL OPERATIONS CONSULTANT EKG 12-LEAD STAT 03/24/2023 11:30 PM CLINICAL OPERATIONS CONSULTANT SOB (shortness of breath) XR CHEST 1VW PORTABLE STAT 03/24/2023 11:25 PM CLINICAL OPERATIONS CONSULTANT SOB (shortness of breath) documented in this encounter Results * CARDIAC EKG ORDER (03/27/2023 2:30 PM CLINICAL OPERATIONS CONSULTANT) Narrative 03/27/2023 2:30 PM CLINICAL OPERATIONS CONSULTANT Ordered by an unspecified provider. Scanned Document CARDIAC SERVICES ORD ERABLES * URINE MICROSCOPIC ONLY REFLEX TO CULTURE (03/25/2023 11:23 AM CLINICAL OPERATIONS CONSULTANT) Reflex Status Culture not indicated 03/25/2023 11:49 AM CLINICAL OPERATIONS CONSULTANT [facility] WBC UA 0-5 None Seen, 0-5 /HPF 03/25/2023 11:49 AM CLINICAL OPERATIONS CONSULTANT [facility] Squamous Epithelial Cells UA 3-5 None Seen, 0-2, 3-5 /HPF 03/25/2023 11:49 AM CLINICAL OPERATIONS CONSULTANT [facility] Mucus UA 1+ /LPF 03/25/2023 11:49 AM CLINICAL OPERATIONS CONSULTANT [facility] Urine URINE SPECIMEN OBTAINED BY CLEAN CATCH PROCEDURE / Unknown Collection / Unknown 03/25/2023 11:23 AM CLINICAL OPERATIONS CONSULTANT 03/25/2023 11:27 AM [facility] - 03/25/2023 11:49 AM CLINICAL OPERATIONS CONSULTANT Brady Gutierrez PA-C LAB - URIN ALYSIS ORDERABLES [facility] [address] [place] [address], [facility] [phone] * (ABNORMAL) URINALYSIS REFLEX MICROSCOPIC REFLEX CULTURE (03/25/2023 11:23 AM CLINICAL OPERATIONS CONSULTANT) Color UA Yellow Straw, Yellow 03/25/2023 11:35 AM [facility] Clarity UA Slt Cloudy(A) Clear 03/25/2023 11:35 AM [facility] Specific [place] UA 1.025 1.005 - 1.030 03/25/2023 11:35 AM [facility] pH UA 5.0 5.0 - 8.0 pH 03/25/2023 11:35 AM [facility] Protein UA 1+(A) Negative 03/25/2023 11:35 AM [facility] Glucose UA 2+(A) Negative 03/25/2023 11:35 AM [facility] Ketone UA Negative Negative 03/25/2023 11:35 AM [facility] Bilirubin UA Negative Negative 03/25/2023 11:35 AM [facility] Blood UA Negative Negative 03/25/2023 11:35 AM [facility] Nitrite UA Negative Negative 03/25/2023 11:35 AM [facility] Leukocyte Esterase Negative Negative 03/25/2023 11:35 AM [facility] Urobilinogen UA Negative Negative mg/dL 03/25/2023 11:35 AM [facility] Urine URINE SPECIMEN OBTAINED BY CLEAN CATCH PROCEDURE / Unknown Collection / Unknown 03/25/2023 11:23 AM CLINICAL OPERATIONS CONSULTANT 03/25/2023 11:27 AM [facility] - 03/25/2023 11:35 AM CLINICAL OPERATIONS CONSULTANT Brady Gutierrez PA-C LAB - URIN ALYSIS ORDERABLES [facility] [address] [place] [address], [facility] [phone] * (ABNORMAL) GLUCOSE - POINT OF CARE (03/25/2023 9:27 AM CLINICAL OPERATIONS CONSULTANT) Glucose WB/POC 313(H) 70 - 115 mg/dL 03/25/2023 9:29 AM [facility] Specimen Type Cap Fingerstick 2022 9:29 AM [facility] Blood BLOOD SPECIMEN / Unknown 03/25/2023 9:27 AM CLINICAL OPERATIONS CONSULTANT 03/25/2023 9:29 AM CLINICAL OPERATIONS CONSULTANT Provider Unknown LAB - POINT OF CARE ORDERABLES Performing Organization Address City/[facility]/ZIP Co de Phone Number [address] [address], [facility] [phone] * (ABNORMAL) COMPREHENSIVE METABOLIC PANEL (03/24/2023 11:38 PM CLINICAL OPERATIONS CONSULTANT) BUN 17 7 - 26 mg/dL 03/25/2023 12:16 AM [facility] Creatinine 0.99(H) 0.56 - 0.96 mg/dL 03/25/2023 12:16 AM [facility] Sodium 135(L) 136 - 145 mmol/L 03/25/2023 12:16 AM [facility] Potassium 4.2 3.5 - 4.5 mmol/L 03/25/2023 12:16 AM [facility] Chloride 98 98 - 107 mmol/L 03/25/2023 12:16 AM [facility] CO2 26 22 - 29 mmol/L 03/25/2023 12:16 AM [facility] Glucose 352(H) 70 - 115 mg/dL 03/25/2023 12:16 AM [facility] Calcium 9.4 8.4 - 10.2 mg/dL 03/25/2023 12:16 AM [facility] Protein Total 8.5(H) 6.0 - 8.3 g/dL 03/25/2023 12:16 AM [facility] Albumin 3.3(L) 3.4 - 5.0 g/dL 03/25/2023 12:16 AM [facility] Bilirubin Total 0.4 0.2 - 1.2 mg/dL 03/25/2023 12:16 AM [facility] Alkaline Phosphatase 77 40 - 150 U/L 03/25/2023 12:16 AM [facility] ALT 17 5 - 55 U/L 03/25/2023 12:16 AM [facility] AST 23 5 - 34 U/L 03/25/2023 12:16 AM [facility] Anion Gap 11 6 - 16 03/25/2023 12:16 AM [facility] BUN/Creatinine Ratio 17 7 - 23 03/25/2023 12:16 AM [facility] Osmolality Calculated 296(H) 275 - 295 mOsm/kg 03/25/2023 12:16 AM [facility] Albumin/Globulin Ratio 0.6(L) 1.1 - 2.3 03/25/2023 12:16 AM [facility] eGFR by CKD-EPI 63(L) >=90 mL/min/1.7 3 m2 03/25/2023 12:16 AM [facility] Blood BLOOD SPECIMEN / Unknown Venipuncture / Unknown 03/24/2023 11:38 PM CLINICAL OPERATIONS CONSULTANT 03/24/2023 11:[address] [facility] Epi Solitario MD LAB - CHEMISTRY ANGEL SPEARS [facility] Organization Address City/State/[facility] Co de Phone Number [address] [address] [phone] * CBC W AUTO DIFFERENTIAL (03/24/2023 11:[address] [facility]) WBC 10.3 3.5 - 10.5 10? 3 /uL 03/24/2023 11:54 PM [facility] RBC 4.66 3.80 - 5.20 10? 6 /uL 03/24/2023 11:54 PM [facility] Hemoglobin 13.6 12.0 - 15.6 g/dL 03/24/2023 11:54 PM [facility] Hematocrit 42.4 35.0 - 45.0 % 03/24/2023 11:54 PM [facility] MCV 91.0 80.7 - 98.3 fL 03/24/2023 11:54 PM [facility] MCH 29.2 26.7 - 34.0 pg 03/24/2023 11:54 PM [facility] MCHC 32.1 30.8 - 35.9 g/dL 03/24/2023 11:54 PM [facility] RDW-SD 44.3 36.0 - 50.0 fL 03/24/2023 11:54 PM [facility] RDW-CV 13.2 11.2 - 14.8 % 03/24/2023 11:54 PM [facility] Platelet Count 279 150 - 400 10? 3 /uL 03/24/2023 11:54 PM [facility] MPV 9.9 9.4 - 12.9 fL 03/24/2023 11:54 PM [facility] nRBC Absolute 0.00 0 10? 3 /uL 03/24/2023 11:54 PM [facility] nRBC Auto 0.0 0 /100 WBC 03/24/2023 11:54 PM [facility] Neutrophils % 63.9 35.0 - 70.0 % 03/24/2023 11:54 PM [facility] Lymphocytes % 24.2 20.0 - 43.0 % 03/24/2023 11:54 PM [facility] Monocytes % 8.1 5.0 - 13.0 % 03/24/2023 11:54 PM [facility] Eosinophils % 3.0 0.0 - 6.0 % 03/24/2023 11:54 PM [facility] Basophil % 0.4 0.0 - 2.0 % 03/24/2023 11:54 PM [facility] Neutrophils Absolute 6.59 1.60 - 7.00 10? 3 /uL 03/24/2023 11:54 PM [facility] Lymphocyte Absolute 2.50 1.10 - 3.90 10? 3 /uL 03/24/2023 11:54 PM [facility] Monocytes Absolute 0.83 0.26 - 1.07 10? 3 /uL 03/24/2023 11:54 PM CLINICAL OPERATIONS CONSULTANT [facility] Eosinophils Absolute 0.31 0.00 - 0.47 10? 3 /uL 03/24/2023 11:54 PM CLINICAL OPERATIONS CONSULTANT [facility] Basophils Absolute 0.04 0.00 - 0.08 10? 3 /uL 03/24/2023 11:54 PM CLINICAL OPERATIONS CONSULTANT [facility] Immature Granulocytes % 0.4 0.0 - 1.0 % 03/24/2023 11:54 PM CLINICAL OPERATIONS CONSULTANT [facility] Immature Granulocytes Absolute 0.04 03/24/2023 11:54 PM CLINICAL OPERATIONS CONSULTANT [facility] Blood BLOOD SPECIMEN / Unknown Venipuncture / Unknown 03/24/2023 11:38 PM CLINICAL OPERATIONS CONSULTANT 03/24/2023 11:49 PM CLINICAL OPERATIONS CONSULTANT Epi Solitario MD LAB - HEMATOLOGY ORD ERABLES [facility] [address] [place] [address], [facility] [phone] * EKG 12-LEAD (03/24/2023 11:30 PM CLINICAL OPERATIONS CONSULTANT) Ventricular Rate 101 BPM [facility] MUSE Atrial Rate 101 BPM [facility] MUSE P-R Interval 140 ms [facility] MUSE QRS Duration ms 82 ms [facility] MUSE Q-T Interval ms 344 ms [facility] MUSE QTC Calculation (Bezet) 446 ms [facility] MUSE Calculated P [place] 14 degrees [facility] MUSE Calculated R [place] -4 degrees [facility] MUSE Calculated T [place] 59 degrees [facility] MUSE Interpretation EKG SINUS TACHYCARDIA WITH PREMATURE ATRIAL COMPLEXES OTHERWISE NORMAL ECG WHEN COMPARED WITH ECG OF 19-MAR-2023 13:57, PREMATURE ATRIAL COMPLEXES ARE NOW PRESENT NONSPECIFIC T WAVE ABNORMALITY NOW EVIDENT IN LATERAL LEADS Confirmed by WILMA ??KAYLYNN DURÁN ([id number]) on 04/02/2023 2:27:03 PM [facility] MUSE 03/24/2023 11:3 0 PM CLINICAL OPERATIONS CONSULTANT 04/02/2023 2:27 PM CLINICAL OPERATIONS CONSULTANT Epi Solitario MD ECG ORDERABLES [facility] MUSE * XR CHEST 1VW PORTABLE (03/24/2023 11:25 PM CLINICAL OPERATIONS CONSULTANT) Anatomical Region Laterality Modality Chest Radiographic Lizeth ging 03/24/2023 11:2 8 PM CLINICAL OPERATIONS CONSULTANT Impressions 03/24/2023 11:58 PM CLINICAL OPERATIONS CONSULTANT IMPRESSION: No acute pulmonary process. Report dictated by David Charlton MD, PhD (residential collections). Gume Perez MD have personally reviewed and interpreted this examination/study. > Interpreting Provider: Gume Bell MD on 03/24/2023 11:58 PM Narrative 03/24/2023 11:58 PM CLINICAL OPERATIONS CONSULTANT PROCEDURE: ??XR CHEST 1VW PORTABLE, DATE/TIME OF EXAM: ??03/24/2023 11:25 PM, LOCATION ??[facility] INDICATION: R06.02: SOB (shortness of breath) ADDITIONAL [...] PORTABLE, DATE/TIME OF EXAM: 03/24/2023 11:25PM, LOCATION [facility] INDICATION: R06.02: SOB (shortness of breath) ADDITIONAL [...] dictated by David Charlton MD, PhD (residential collections). Gume Perez MD have personally reviewed and [...] the MAR. $ Given 03/25/2023 10:28 AM CLINICAL OPERATIONS CONSULTANT 1,000 mg ondansetron (disintegrating) (Zofran ODT) tablet 4 mg 4 mg, Oral, EVERY 30 MIN PRN, Nausea/Vomiting, 2 doses, Starting on Mon03/24/23 at 2311, Until 03/25/23 at 1448, Dissolved orally on tongue $ Given 03/24/2023 11:13 PM CLINICAL OPERATIONS CONSULTANT 4 mg documented in this encounter Active and Recently Administered Medications Times are shown in CLINICAL OPERATIONS CONSULTANT. Scheduled Medication Order 03/23/2023 03/24/2023 03/25/2023 0.9% [...] patency. documented in this encounter Care Teams Steward/Stewardess Third Relationship Specialty Start Date End Date Justen aGle MD PCP - General 07/05/21 documented as of this encounter
--- OUTSIDE RECORDS SUMMARY | 2024-04-26 06:53 | XMS_ITS | Encounter Summary ---
Author Organization [facility] Address [address] [facility] [place] [address] Care Team Providers Care Directory Operator Name Role Phone Justen Gale MD Primary Care Provider [phone] Encounter Details Date Type Department Care Team [...] medical care, and heating? Somewhat hard 05/16/2023 [facility] Occupat ional Health - Occupational Stress [...] on filedocumented in this encounter Care Teams Directory Operator Relationship Specialty Start Date End Date Justen Gale MD PCP - General 07/05/21 documented as of this encounter
--- OUTSIDE RECORDS SUMMARY | 2024-04-26 06:53 | XMS_ITS | Encounter Summary ---
Author Organization [facility] Address [address] [facility] [place] [address] Care Team Providers Care Cruise Director Name Role Phone Justen Gale MD Primary Care Provider [phone] Encounter Details Date Type Department Care Team [...] and heating? Not hard at all 02/22/2023 [facility] [place] of Occupat ional Health - Occupational Stress [...] on filedocumented in this encounter Care Teams Cruise Director Relationship Specialty Start Date End Date Justen Gale MD PCP - General 07/05/21 documented as of this encounter
--- OUTSIDE RECORDS SUMMARY | 2024-04-26 06:53 | XMS_ITS | Encounter Summary ---
Author Organization [facility] Address [address] [facility] [place] [address] Care Team Providers Care Woven Blind Loom Tender Name Role Phone Justen Gale MD Primary Care Provider [phone] Encounter Details Date Type Department Care Team [...] and heating? Not hard at all 02/22/2023 [facility] [place] of Occupat ional Health - Occupational [...] on filedocumented in this encounter Care Teams Woven Blind Loom Tender Relationship Specialty Start Date End Date Justen Gale MD PCP - General 07/05/21 documented as of this encounter
--- OUTSIDE RECORDS SUMMARY | 2024-04-26 06:54 | XMS_ITS | Encounter Summary ---
Author Organization [facility] Address [address] [place] [address] Care Team Providers Care Skilled Nursing Case Manager Name Role Phone Justen Gale MD Primary Care Provider [phone] Reason for Visit * Auth/Cert (Routine) Specialty Diagnoses / Procedures Referred By Contac t Referred To Contact Diagnoses Diagnosis unknown Diagnosis unknown [R69] Procedures LA INSRT/REPL SPINAL NEUROSTIM PULSE GEN/RECV INSERTION/REPLACEMENT SPINAL CORD STIMULATOR Referral ID Status Reason Start Date Expiration Date Visits Re quested Visits Authorized [id number] 1 1 Encounter Details Date Type Department Care Team (Latest Contact Info) Description 02/16/2023 10:43 AM CDT - 02/16/2023 5:55 PM CDT Hospital Encounter [facility] [address] [place] [address] Maxi Gregg MD [facility] [place] [address] Surgery General Discharge Disposition: Home or Self [...] and heating? Not hard at all 12/23/2022 [facility] Occupat ional [facility] - Occupational Stress Questionnaire Answer Date [...] slept in a retirement (including now)? No 12/23/2022 Sex and Gender [...] Discharge Instructions * Discharge Instructions* Melly Banks, ZAMZAM-HAMMER SMITH - 02/16/2023 1:56 PM CDT Spine Surgery Patient Discharge Instructions Patient Discharge Instructions Summary: - FOLLOW UP: Please plan to follow-up with Dr. Gregg's Nurse Practitioner (Melly Banks, PRINTER REPAIR TECHNICIAN) in 2-3 weeks. You will be contacted with a future appointment date or you may call [phone] to schedule an appointment yourself. The appointment will be located at the [facility], which is the building directly east of [facility], at [address] [place] [address] [address]. Please arrive about 15 minutes early for your appointment in order to expedite the registration process. - QUESTIONS/ISSUES: please call Angeline (Dr. Gregg's nurse) at [phone] - ACTIVITY: Activity as tolerated --Avoid heavy [...] an emergency you should be evaluated in [facility]'s Emergency Room - HOME MEDICATION: --Resume your [...] mouth once daily 07/17/2022 05/19/2023 HYDROcodone-acetaminoph en ([place]) 10-325 MG tablet Take 1 (one) tablet [...] recurrent UTIs are now managed by urology. [facility] NEURO SPINAL SURGERY HIGH RISK VARIABLES [...] DAILY HumaLOG KwikPen 100 UNIT/ML pen HYDROcodone-acetaminophen ([place]) 7.5-325 MG tablet Take 1 (one) tablet [...] HumaLOG KwikPen 100 UNIT/ML pen ??? HYDROcodone-acetaminophen ([place]) 7.5-325 MG tablet ??? hydrOXYzine HCl (Atarax) [...] OR when ready - Dispo: home Melly BanksZAMZAM-HAMMER SMITH 02/16/2023 11:23 AM Ascom Pager documented in [...] Implant Name Type Inv. Item Serial No. Janitor Supervisor Lot No. LRB No. Used [employer] Plus 5 [id number] Savage Spine Left 1 Implanted Tyler Nguyen MD * Operative - Maxi Gregg MD - 02/16/2023 1:40 PM CDT ??Operative Report ?? PATIENT NAME:??MOHSEN SALAZAR ? DATE OF :?02/16/2023? CSN: [id number] ?? DATE OF ADMISSION: ??02/16/2023?INTRAOP DATE OF OPERATION: ??02/16/2023? PREOPERATIVE DIAGNOSIS: S/p removal of battery of spinal stimulation ?? POSTOPERATIVE DIAGNOSIS: S/p removal of battery of spinal stimulation ?? PROCEDURE PERFORMED: Placement of new battery of spinal stimulation in the left lumbar region and connection with the wires previously coiled in the right lumbar region. ?? SURGEON: Maxi Gregg M.D. ?? PROFESSOR IN FAMILY STUDIES: Tyler Nguyen MD ?ANESTHESIA: General anesthesia. ?? [...] OF CARE Routine 02/16/2023 2:43 PM CDT LA INS/RPLCMT SPI NPGR POCKET 02/16/2023 12:41 PM CDT Diagnosis unknown Special Needs NEEDS C-ARM, SAVAGE REP (RODRÍGUEZ [phone]) NOTIFIED PER OFFICE(ANGELINE) 02/01 TM / SURGEON [...] - 106 mg/dL 02/16/2023 2:50 PM CDT [facility] Specimen Type Cap Fingerstick 2022 2:50 PM CDT [facility] Blood BLOOD SPECIMEN / Unknown 02/16/2023 2:43 PM CDT 02/16/2023 2:50 PM CDT Maxi Gregg MD LAB - POINT OF C ARE ORDERABLES [facility] [address] [place] [address] * (ABNORMAL) PT-INR (02/16/2023 12:20 PM CDT) PT 15.0(H) 12.1 - 14.8 sec 02/16/2023 1:14 PM CDT [facility] INR 1.2(H) 0.9 - 1.1 02/16/2023 1:14 PM CDT [facility] Blood BLOOD SPECIMEN / Unknown Venipuncture / Unknown 02/16/2023 12:20 PM CDT 02/16/2023 12:30 PM CDT Narrative [facility] - 02/16/2023 1:14 PM CDT Conventional Warfarin Anticoagulant Therapy: INR Reference Range: ??2.0-3.0 Intensive Warfarin Anticoagulant Therapy: INR Reference Range: ? 2.5-3.5 Melly Banks PASTRYCOOK'S ASSISTANT-HAMMER SMITH LAB - COAGULATIO N ORDERABLES [facility] [address] [place] [address] * (ABNORMAL) GLUCOSE - POINT OF CARE (02/16/2023 12:13 PM CDT) Glucose WB/POC 175(H) 70 - 106 mg/dL 02/16/2023 12:21 PM CDT [facility] Specimen Type Cap Fingerstick 2022 12:21 PM CDT [facility] Blood BLOOD SPECIMEN / Unknown 02/16/2023 12:13 PM CDT 02/16/2023 12:21 PM CDT Maxi Gregg MD LAB - POINT OF C ARE ORDERABLES Performing Organization Address City/[facility]/ZIP Co de Phone Number [facility] [address] [place] [address] documented in this encounter Visit Diagnoses Diagnosis [...] be documented in the MAR., PACU HYDROcodone-acetaminophen ([place]) 7.5-325 MG tablet 1 tablet 1 tablet, [...] every 8 hours., Pre-op 1400 (Due) HYDROcodone-acetaminophen ([place]) 7.5-325 MG tablet 1 tablet (COMPLETED) 1 [...] Brenda Hou RN)1329 (Due: Stopped - Provider: rBenda Hou RN) Continuous Medication Order 02/14/2023 02/15/2023 02/16/2023 lactated ringers infusion at 20 mL/hr, Intravenous, PRE-OP CONTINUOUS, Starting on Valeri 02/16/23 at 1145, Until Valeri 02/16/23 at 1858, Pre-op 1155 ($ New Bag/Syri nge - Provider: Brenda Hou RN)1431 (Anesthesia Volume Adjustment - Provider: Cordelia Barrientos APRN-SENIOR BUDGET ANALYST) lactated ringers infusion at 125 mL/hr, Intravenous, [...] Pre-op documented in this encounter Care Teams Skilled Nursing Case Manager Relationship Specialty Start Date End Date Justen Gale MD PCP - General 07/05/21 documented as of this encounter
--- OUTSIDE RECORDS SUMMARY | 2024-04-26 06:54 | XMS_ITS | Encounter Summary ---
Author Organization [facility] Address [address] [place] [address] Care Team Providers Care Oracle Database Analyst Name Role Phone Justen Gale MD Primary Care Provider [phone] Encounter Details Date Type Department Care Team (Late st Contact Info) Description 08/15/2022 Orders Only [facility] [address] [address] Opal Orellana, H[employer] ROLLER-PANTS BUSHELER [address] [place] [address] Recurrent UTI ; OAB (overactive bladder) Social [...] bladder documented in this encounter Care Teams Oracle Database Analyst Relationship Specialty Start Date End Date Justen Gale MD PCP - General 07/05/21 documented as of this encounter
--- OUTSIDE RECORDS SUMMARY | 2024-04-26 06:54 | XMS_ITS | Encounter Summary ---
Author Organization [facility] Address [address] [place] [address] Care Team Providers Care Batch And Furnace Manager Name Role Phone Justen Gale MD Primary Care Provider [phone] Reason for Visit * Reason Onset Date Comments Surgery Scheduling 12/06/2022 Encounter Details Date Type Department Care Team (Late st Contact Info) Description 12/06/2022 Telephone [facility] - Neurosurgery [address] [place] [address], [place] [address] Angeline Avila, business relations manager Scheduling Social History Tobacco Use Types Packs/Day [...] on filedocumented in this encounter Care Teams Batch And Furnace Manager Relationship Specialty Start Date End Date Justen Gale MD PCP - General 07/05/21 documented as of this encounter
--- OUTSIDE RECORDS SUMMARY | 2024-04-26 06:54 | XMS_ITS | Encounter Summary ---
Author Organization [facility] Address [address] [place] [address] Care Team Providers Care Industrial/Organizational Psychologist Name Role Phone Justen Gale MD Primary Care Provider [phone] Encounter Details Date Type Department Care Team [...] on filedocumented in this encounter Care Teams Industrial/Organizational Psychologist Relationship Specialty Start Date End Date Justen Gale MD PCP - General 07/05/21 documented as of this encounter
--- OUTSIDE RECORDS SUMMARY | 2024-04-26 06:54 | XMS_ITS | Encounter Summary ---
Author Organization [facility] Address [address] [place] [address] Care Team Providers Care Fur Vault Attendant Name Role Phone Justen Gale MD Primary Care Provider [phone] Reason for Visit * Auth/Cert (Routine) Specialty Diagnoses / Procedures Referred By Elyssa t Referred To Contact Diagnoses Acute Headache Referral ID Status Reason Start Date Expiration Date Visits Re quested Visits Authorized [id number] 1 1 Encounter Details Date Type Department Care Team (Latest Contact Info) Description 12/23/2022 9:21 PM CDT - 12/26/2022 6:00 PM CDT Hospital Encounter [facility] 5N ACUTE [address] [place] [address] Jerrod Pennington MD [address] [place] [id number] Hospitalist Discharge Disposition: Home or Self Care [...] and heating? Not hard at all 12/23/2022 [facility] - Occupational Stress [...] slept in a assisted (including now)? No 12/23/2022 Sex and Gender [...] Chest pain ??? DVT (deep venous thrombosis) ([facility]) ??? GERD (gastroesophageal reflux disease) ??? LUL (obstructive sleep apnea) w cpap ??? Other pulmonary embolism without acute cor pulmonale (CMS/HCC) ??? rls ??? Type 2 diabetes mellitus without complications ([facility]) Discharge Diagnoses Postconvulsive syndrome Diagnostic Studies CTA head and neck- prelim [facility] Course Karly Marques is a 67 year old female with past medical hx significant for DM2, Breast CA, Chronic back pain on spinal pain stimulator, LUL, depression, peripheral neuropathy, PE on Xarelto admitted for persistent CAZARES and neck pain after a fall on GL backwards hitting her head to a brick. She was transferred from [facility], workup with CT head [...] by mouth 2 times daily Opal Orellana APRN-PHOTOGRAPHIC HAND DEVELOPER B-D ULTRAFINE III SHORT PEN 31G X 8 MM needle Generic drug: insulin pen needle Quantity Dispensed: 300 Each 4 times daily Mckenzie Johnston MD exemestane 25 MG tablet Commonly known as: Aromasin Take 1 (one) tablet by mouth DAILY HumaLOG KwikPen 100 UNIT/ML pen Generic drug: insulin lispro HYDROcodone-acetaminophen 7.5-325 MG tablet Commonly known as: Richards Take 1 (one) tablet by mouth every [...] difficulty finding appropriate words + right hand hydroponics worker weakness + right leg weakness + blurred [...] for details Signed Electronically Jerrod Rodriguez MD [employer] Helper of Neurology, documented in this encounter Medications [...] mouth once daily 07/17/2022 05/19/2023 HYDROcodone-acetaminoph en (Richards) 10-325 MG tablet Take 1 (one) tablet [...] at this time. Transportation: family Leah/NURIS MOSHER/BSN/CM [phone] * Cipriano Martin RN - 12/26/2022 2:19 [...] pain: s/p spinal pain stimulation, continue home Richards (lower dose of 5mg-325mg due to formulary) [...] neuropathy, PE on Xarelto admitted for persistent CAZAERS and neck pain. Patient reports falling backwards [...] pain: s/p spinal pain stimulation, continue home Richards (lower dose of 5mg-325mg due to formulary) [...] for details Signed Electronically Jerrod Rodriguez MD [employer] Neurology 12/25/22 * Caesar Wang RN [...] Requires Assistance With: Mobility;Housekeeping;Meal Preparation;Shopping Preferred Pharmacy: [facility] #[id number] - [address] [place] [address] [address] [facility] [place] [address] Advance Directive: Yes, has Advance Directive Type [...] Information Primary Emergency Contact: Jimmie Marques Address: [address] [place] [address] [place] [address] Relation: Spouse Secondary Emergency Contact: Yunior Velez Mobile Relation: Daughter Patient or union contract representative requests care coordination reach out to family or caregiver listed above regarding discharge planning and at time of discharge? Yes Patient/Family provided with list of resources? Unknown Preferred Provider / High Quality Network List given?: Unknown Reason for provider choice: Unknown Cat Breeder Referral: No Will continue to follow. For any questions or needs please contact: Application Systems Engineer Name/Phone number: Theresa Aranda RN [phone] * Carley Garcia RN - 12/25/2022 6:00 [...] pain: s/p spinal pain stimulation, continue home Richards (lower dose of 5mg-325mg due to formulary) [...] difficulty finding appropriate words + right hand hydroponics worker weakness + right leg weakness + blurred [...] for details Signed Electronically Jerrod Rodriguez MD [employer] [facility] Neurology, * Sara Ahumada RN - [...] No Stress: No Stress Concern Present (12/23/2022) [facility] - Occupational Stress Questionnaire [...] MD Neurology Resident. Associated attestation - Jerrod Pennington MD - 12/24/2022 4:03 PM CDT Reviewed [...] difficulty finding appropriate words + right hand hydroponics worker weakness + right leg weakness + blurred [...] for details Signed Electronically Jerrod Rodriguez MD [employer] Hel[employer] of Neurology, documented in this encounter Miscellaneous Notes * Coding Query - Jerrod Pennington MD - 12/26/2022 6:00 PM CDT DOCUMENTATION CLARIFICATION REQUEST TO: Dr. Herndon FROM: Opal Malhotra RN, CDS EMAIL: [email or web address] Patient Name: Karly Marques Please review the [...] POINT OF CARE (12/26/2022 5:36 PM CDT) [facility] Glucose WB/POC 322(H) 70 - 115 mg/dL 12/26/2022 5:40 PM CDT [facility] Specimen Type Cap Fingerstick 2022 5:40 PM CDT [facility] Blood BLOOD SPECIMEN / Unknown 12/26/2022 5:36 PM CDT 12/26/2022 5:40 PM CDT Jerrod Rodriguez MD LAB - POINT OF CARE ORDERABLES Performing Organization Address City/[facility]/ZIP Co de Phone Number [address] [address], [facility] [phone] * (ABNORMAL) GLUCOSE - POINT OF CARE (12/26/2022 11:38 AM CDT) Glucose WB/POC 284(H) 70 - 115 mg/dL 12/26/2022 11:48 AM CDT [facility] Specimen Type Cap Fingerstick 2022 11:48 AM CDT [facility] Blood BLOOD SPECIMEN / Unknown 12/26/2022 11:38 AM CDT 12/26/2022 11:48 AM CDT Jerrod Rodriguez MD LAB - POINT OF CARE ORDERABLES Performing Organization Address [facility]/ZIP Co de Phone Number [address] [address], [facility] [phone] * CT ANGIO BRAIN AND NECK (12/26/2022 [...] DATE/TIME OF EXAM: ??12/26/2022 9:43 AM, LOCATION ??[facility] INDICATION: R51.9: Acute intractable headache, unspecified headache [...] NECK, DATE/TIME OF EXAM: 12/26/2022 9:43AM, LOCATION [facility] INDICATION: R51.9: Acute intractable headache, unspecified headache [...] - 115 mg/dL 12/26/2022 8:28 AM CDT [facility] Specimen Type Cap Fingerstick 2022 8:28 AM CDT [facility] Blood BLOOD SPECIMEN / Unknown 12/26/2022 8:13 AM CDT 12/26/2022 8:28 AM CDT Jerrod Rodriguez MD LAB - POINT OF CARE ORDERABLES [address] [address], [facility] [phone] * (ABNORMAL) PHOSPHORUS BLOOD (12/26/2022 1:32 AM CDT) Phosphorus 2.7(L) 2.9 - 5.1 mg/dL 12/26/2022 3:11 AM CDT [facility] Blood BLOOD SPECIMEN / Unknown Lab Venipuncture / Unknown 12/26/2022 1:32 AM CDT 12/26/2022 2:44 AM CDT Jerrod Rodriguez MD LAB - CHEMISTR Y ORDERABLES [address] [address], [place] [phone] * (ABNORMAL) MAGNESIUM BLOOD (12/26/2022 1:32 AM CDT) Magnesium 1.5(L) 1.6 - 2.6 mg/dL 12/26/2022 3:11 AM CDT [facility] Blood BLOOD SPECIMEN / Unknown Lab Venipuncture / Unknown 12/26/2022 1:32 AM CDT 12/26/2022 2:44 AM CDT Jerrod Rodriguez MD LAB - CHEMISTR Y ORDERABLES [facility] [address] [place] [address], [facility] [phone] * (ABNORMAL) CBC W/O DIFFERENTIAL (12/26/2022 1:32 AM CDT) WBC 10.8(H) 3.5 - 10.5 10? 3 /uL 12/26/2022 2:55 AM T [facility] RBC 4.40 3.80 - 5.20 10? 6 /uL 12/26/2022 2:55 AM [facility] Hemoglobin 12.7 12.0 - 15.6 g/dL 12/26/2022 2:55 AM [facility] Hematocrit 39.6 35.0 - 45.0 % 12/26/2022 2:55 AM [facility] MCV 90.0 80.7 - 98.3 fL 12/26/2022 2:55 AM [facility] MCH 28.9 26.7 - 34.0 pg 12/26/2022 2:55 AM [facility] MCHC 32.1 30.8 - 35.9 g/dL 12/26/2022 2:55 AM [facility] RDW-SD 45.7 36.0 - 50.0 fL 12/26/2022 2:55 AM [facility] RDW-CV 13.9 11.2 - 14.8 % 12/26/2022 2:55 AM [facility] Platelet Count 265 150 - 400 10? 3 /uL 12/26/2022 2:55 AM [facility] MPV 9.7 9.4 - 12.9 fL 12/26/2022 2:55 AM [facility] nRBC Absolute 0.00 0 10? 3 /uL 12/26/2022 2:55 AM [facility] nRBC Auto 0.0 0 /100 WBC 12/26/2022 2:55 AM [facility] Blood BLOOD SPECIMEN / Unknown Lab Venipuncture / Unknown 12/26/2022 1:32 AM CDT 12/26/2022 2:44 AM CDT Jerrod Rodriguez MD LAB - HEMATOLO GY ORDERABLES [facility] [address] [place] [address], [facility] [phone] * (ABNORMAL) BASIC METABOLIC PANEL (CALCIUM TOTAL) (12/26/2022 1:32 AM CDT) BUN 12 7 - 26 mg/dL 12/26/2022 3:11 AM [facility] Creatinine 0.62 0.56 - 0.96 mg/dL 12/26/2022 3:11 AM [facility] Sodium 136 136 - 145 mmol/L 12/26/2022 3:11 AM [facility] Potassium 3.9 3.5 - 4.5 mmol/L 12/26/2022 3:11 AM [facility] Chloride 104 98 - 107 mmol/L 12/26/2022 3:11 AM [facility] CO2 26 22 - 29 mmol/L 12/26/2022 3:11 AM [facility] Glucose 181(H) 70 - 115 mg/dL 12/26/2022 3:11 AM [facility] Calcium 8.9 8.4 - 10.2 mg/dL 12/26/2022 3:11 AM [facility] Anion Gap 10 8 - 18 12/26/2022 3:11 AM [facility] BUN/Creatinine Ratio 19 7 - 23 12/26/2022 3:11 AM [facility] Osmolality Calculated 286 270 - 300 mOsm/kg 12/26/2022 3:11 AM [facility] eGFR by CKD-EPI >90 >=90 mL/min/1.7 3 m2 12/26/2022 3:11 AM [facility] Blood BLOOD SPECIMEN / Unknown Lab Venipuncture / Unknown 12/26/2022 1:32 AM CDT 12/26/2022 2:44 AM CDT Jerrod Rodriguez MD LAB - CHEMISTR Y ORDERABLES [facility] [address] [place] [address], [place] [phone] * (ABNORMAL) GLUCOSE - POINT OF CARE (12/25/2022 9:38 PM CDT) Glucose WB/POC 272(H) 70 - 115 mg/dL 12/25/2022 9:43 PM CDT [facility] Specimen Type Cap Fingerstick 2022 9:43 PM CDT [facility] Blood BLOOD SPECIMEN / Unknown 12/25/2022 9:38 PM CDT 12/25/2022 9:43 PM CDT Jerrod Rodriguez MD LAB - POINT OF CARE ORDERABLES [facility] [address] [place] [address], [place] [phone] * (ABNORMAL) GLUCOSE - POINT OF CARE (12/25/2022 4:11 PM CDT) Glucose WB/POC 241(H) 70 - 115 mg/dL 12/25/2022 4:12 PM CDT [facility] Specimen Type Cap Fingerstick 2022 4:12 PM CDT [facility] Blood BLOOD SPECIMEN / Unknown 12/25/2022 4:11 PM CDT 12/25/2022 4:12 PM CDT Jerrod Rodriguez MD LAB - POINT OF CARE ORDERABLES [facility] [address] [place] [address], [place] [phone] * (ABNORMAL) GLUCOSE - POINT OF CARE (12/25/2022 12:21 PM CDT) Glucose WB/POC 301(H) 70 - 115 mg/dL 12/25/2022 12:21 PM CDT [facility] Specimen Type Cap Fingerstick 2022 12:21 PM CDT [facility] Blood BLOOD SPECIMEN / Unknown 12/25/2022 12:21 PM CDT 12/25/2022 12:21 PM CDT Jerrod Rodriguez MD LAB - POINT OF CARE ORDERABLES [address] [address], [place] [phone] * (ABNORMAL) GLUCOSE - POINT OF CARE (12/25/2022 7:26 AM CDT) Glucose WB/POC 175(H) 70 - 115 mg/dL 12/25/2022 7:27 AM CDT [facility] Specimen Type Cap Fingerstick 2022 7:27 AM CDT [facility] Blood BLOOD SPECIMEN / Unknown 12/25/2022 7:26 AM CDT 12/25/2022 7:26 AM CDT Jerrod Rodriguez MD LAB - POINT OF CARE ORDERABLES Performing Organization Address [facility]/ZIP Co de Phone Number [address] [address], [place] [phone] * (ABNORMAL) PHOSPHORUS BLOOD (12/25/2022 3:56 AM CDT) Phosphorus 2.2(L) 2.9 - 5.1 mg/dL 12/25/2022 4:59 AM CDT [facility] Blood BLOOD SPECIMEN / Unknown Lab Venipuncture / Unknown 12/25/2022 3:56 AM CDT 12/25/2022 4:30 AM CDT Jerrod Rodriguez MD LAB - CHEMISTR Y ORDERABLES [address] [address], [place] [phone] * MAGNESIUM BLOOD (12/25/2022 3:56 AM CDT) Magnesium 1.7 1.6 - 2.6 mg/dL 12/25/2022 4:59 AM [facility] Blood BLOOD SPECIMEN / Unknown Lab Venipuncture / Unknown 12/25/2022 3:56 AM CDT 12/25/2022 4:30 AM CDT Jerrod Rodriguez MD LAB - CHEMISTR Y ORDERABLES Performing Organization Address City/State/[facility] Co de Phone Number [facility] [address] [place] [address], [facility] [phone] * (ABNORMAL) CBC W/O DIFFERENTIAL (12/25/2022 3:56 AM CDT) WBC 10.1 3.5 - 10.5 10? 3 /uL 12/25/2022 4:43 AM [facility] RBC 4.30 3.80 - 5.20 10? 6 /uL 12/25/2022 4:43 AM [facility] Hemoglobin 12.2 12.0 - 15.6 g/dL 12/25/2022 4:43 AM [facility] Hematocrit 39.9 35.0 - 45.0 % 12/25/2022 4:43 AM [facility] MCV 92.8 80.7 - 98.3 fL 12/25/2022 4:43 AM [facility] MCH 28.4 26.7 - 34.0 pg 12/25/2022 4:43 AM [facility] MCHC 30.6(L) 30.8 - 35.9 g/dL 12/25/2022 4:43 AM [facility] RDW-SD 47.8 36.0 - 50.0 fL 12/25/2022 4:43 AM [facility] RDW-CV 14.0 11.2 - 14.8 % 12/25/2022 4:43 AM [facility] Platelet Count 235 150 - 400 10? 3 /uL 12/25/2022 4:43 AM [facility] MPV 9.5 9.4 - 12.9 fL 12/25/2022 4:43 AM [facility] nRBC Absolute 0.00 0 10? 3 /uL 12/25/2022 4:43 AM [facility] nRBC Auto 0.0 0 /100 WBC 12/25/2022 4:43 AM [facility] Blood BLOOD SPECIMEN / Unknown Lab Venipuncture / Unknown 12/25/2022 3:56 AM CDT 12/25/2022 4:31 AM CDT Jerrod Rodriguez MD LAB - HEMATOLO GY ORDERABLES [facility] [address] [place] [address], [facility] [phone] * (ABNORMAL) BASIC METABOLIC PANEL (CALCIUM TOTAL) (12/25/2022 3:56 AM CDT) BUN 13 7 - 26 mg/dL 12/25/2022 4:59 AM [facility] Creatinine 0.64 0.56 - 0.96 mg/dL 12/25/2022 4:59 AM [facility] Sodium 138 136 - 145 mmol/L 12/25/2022 4:59 AM [facility] Potassium 4.2 3.5 - 4.5 mmol/L 12/25/2022 4:59 AM [facility] Chloride 104 98 - 107 mmol/L 12/25/2022 4:59 AM [facility] CO2 27 22 - 29 mmol/L 12/25/2022 4:59 AM [facility] Glucose 185(H) 70 - 115 mg/dL 12/25/2022 4:59 AM [facility] Calcium 8.7 8.4 - 10.2 mg/dL 12/25/2022 4:59 AM [facility] Anion Gap 11 8 - 18 12/25/2022 4:59 AM [facility] BUN/Creatinine Ratio 20 7 - 23 12/25/2022 4:59 AM [facility] Osmolality Calculated 291 270 - 300 mOsm/kg 12/25/2022 4:59 AM [facility] eGFR by CKD-EPI >90 >=90 mL/min/1.7 3 m2 12/25/2022 4:59 AM CDT [facility] Blood BLOOD SPECIMEN / Unknown Lab Venipuncture / Unknown 12/25/2022 3:56 AM CDT 12/25/2022 4:30 AM CDT Jerrod Rodriguez MD LAB - CHEMISTR Y ORDERABLES Performing Organization Address City/[facility]/ZIP Co de Phone Number [address] [address], [facility] [phone] * (ABNORMAL) HEMOGLOBIN A1C (12/25/2022 3:56 AM CDT) Hemoglobin A1c 8.6(H) <=5.6 % 12/25/2022 2:47 PM CDT [facility] Estimated Average Glucose 200 mg/dL 12/25/2022 2:47 PM CDT [facility] Comment: HbA1c Interpretation: Normal : < 5.7% Pre-diabetes: 5.7-6.4% Diabetes: Equal to or greater than 6.5% Test results diagnostic of diabetes should be repeated for confirmation. Treatment target values recommended by ADA and other clinical organizations should be used to evaluate metabolic control in patients. Reference: [place] [employer], Standards of Care in Diabetes [...] - CHEMISTR Y ORDERABLES Performing Organization Address City/[facility]/ZIP Co de Phone Number [address] [address], [facility] [phone] * (ABNORMAL) GLUCOSE - POINT OF CARE (12/24/2022 9:05 PM CDT) Glucose WB/POC 231(H) 70 - 115 mg/dL 12/24/2022 9:10 PM CDT [facility] Specimen Type Cap Fingerstick 2022 9:10 PM CDT [facility] Blood BLOOD SPECIMEN / Unknown 12/24/2022 9:05 PM CDT 12/24/2022 9:10 PM CDT Jerrod Rodriguez MD LAB - POINT OF CARE ORDERABLES [address] [address], [place] [phone] * (ABNORMAL) GLUCOSE - POINT OF CARE (12/24/2022 5:39 PM CDT) Glucose WB/POC 171(H) 70 - 115 mg/dL 12/24/2022 5:40 PM CDT [facility] Specimen Type Cap Fingerstick 2022 5:40 PM CDT [facility] Blood BLOOD SPECIMEN / Unknown 12/24/2022 5:39 PM CDT 12/24/2022 5:40 PM CDT Jerrod Rodriguez MD LAB - POINT OF CARE ORDERABLES Performing Organization Address City/[facility]/ZIP Co de Phone Number [address] [address], [place] [phone] * (ABNORMAL) GLUCOSE - POINT OF CARE (12/24/2022 11:53 AM CDT) Glucose WB/POC 224(H) 70 - 115 mg/dL 12/24/2022 11:55 AM CDT [facility] Specimen Type Cap Fingerstick 2022 11:55 AM CDT [facility] Blood BLOOD SPECIMEN / Unknown 12/24/2022 11:53 AM CDT 12/24/2022 11:55 AM CDT Jerrod Rodriguez MD LAB - POINT OF CARE ORDERABLES [address] [place] [address], [facility] [phone] * (ABNORMAL) GLUCOSE - POINT OF CARE (12/24/2022 8:42 AM CDT) Glucose WB/POC 151(H) 70 - 115 mg/dL 12/24/2022 8:53 AM CDT [facility] Specimen Type Cap Fingerstick 2022 8:53 AM CDT [facility] Blood BLOOD SPECIMEN / Unknown 12/24/2022 8:42 AM CDT 12/24/2022 8:53 AM CDT Jerrod Rodriguez MD LAB - POINT OF CARE ORDERABLES [address] [address], [facility] [phone] * (ABNORMAL) PHOSPHORUS BLOOD (12/24/2022 1:35 AM CDT) Phosphorus 2.7(L) 2.9 - 5.1 mg/dL 12/24/2022 2:23 AM CDT [facility] Blood BLOOD SPECIMEN / Unknown Lab Venipuncture / Unknown 12/24/2022 1:35 AM CDT 12/24/2022 1:52 AM CDT Jerrod Rodriguez MD LAB - CHEMISTR Y ORDERABLES [address] [address], [facility] [phone] * MAGNESIUM BLOOD (12/24/2022 1:35 AM CDT) Magnesium 1.6 1.6 - 2.6 mg/dL 12/24/2022 2:23 AM CDT [facility] Blood BLOOD SPECIMEN / Unknown Lab Venipuncture / Unknown 12/24/2022 1:35 AM CDT 12/24/2022 1:52 AM CDT Jerrod Rodriguez MD LAB - CHEMISTR Y ORDERABLES [facility] [address] [place] [address], [facility] [phone] * (ABNORMAL) CBC W/O DIFFERENTIAL (12/24/2022 1:35 AM CDT) WBC 9.5 3.5 - 10.5 10? 3 /uL 12/24/2022 2:03 AM [facility] RBC 4.24 3.80 - 5.20 10? 6 /uL 12/24/2022 2:03 AM [facility] Hemoglobin 12.3 12.0 - 15.6 g/dL 12/24/2022 2:03 AM [facility] Hematocrit 39.5 35.0 - 45.0 % 12/24/2022 2:03 AM [facility] MCV 93.2 80.7 - 98.3 fL 12/24/2022 2:03 AM [facility] MCH 29.0 26.7 - 34.0 pg 12/24/2022 2:03 AM [facility] MCHC 31.1 30.8 - 35.9 g/dL 12/24/2022 2:03 AM [facility] RDW-SD 47.8 36.0 - 50.0 fL 12/24/2022 2:03 AM [facility] RDW-CV 14.1 11.2 - 14.8 % 12/24/2022 2:03 AM [facility] Platelet Count 253 150 - 400 10? 3 /uL 12/24/2022 2:03 AM [facility] MPV 9.2(L) 9.4 - 12.9 fL 12/24/2022 2:03 AM [facility] nRBC Absolute 0.00 0 10? 3 /uL 12/24/2022 2:03 AM [facility] nRBC Auto 0.0 0 /100 WBC 12/24/2022 2:03 AM [facility] Blood BLOOD SPECIMEN / Unknown Lab Venipuncture / Unknown 12/24/2022 1:35 AM CDT 12/24/2022 1:52 AM CDT Jerrod Rodriguez MD LAB - HEMATOLO GY ORDERABLES [facility] [address] [place] [address], [facility] [phone] * (ABNORMAL) COMPREHENSIVE METABOLIC PANEL (12/24/2022 1:35 AM CDT) BUN 14 7 - 26 mg/dL 12/24/2022 2:23 AM [facility] Creatinine 0.68 0.56 - 0.96 mg/dL 12/24/2022 2:23 AM [facility] Sodium 137 136 - 145 mmol/L 12/24/2022 2:23 AM [facility] Potassium 4.1 3.5 - 4.5 mmol/L 12/24/2022 2:23 AM [facility] Chloride 103 98 - 107 mmol/L 12/24/2022 2:23 AM [facility] CO2 26 22 - 29 mmol/L 12/24/2022 2:23 AM [facility] Glucose 163(H) 70 - 115 mg/dL 12/24/2022 2:23 AM [facility] Calcium 8.8 8.4 - 10.2 mg/dL 12/24/2022 2:23 AM [facility] Protein Total 7.1 6.0 - 8.3 g/dL 12/24/2022 2:23 AM [facility] Albumin 2.9(L) 3.4 - 5.0 g/dL 12/24/2022 2:23 AM [facility] Bilirubin Total 0.5 0.2 - 1.2 mg/dL 12/24/2022 2:23 AM [facility] Alkaline Phosphatase 69 40 - 150 U/L 12/24/2022 2:23 AM [facility] ALT 17 5 - 55 U/L 12/24/2022 2:23 AM [facility] AST 13 5 - 34 U/L 12/24/2022 2:23 AM [facility] Anion Gap 12 8 - 18 12/24/2022 2:23 AM CDT [facility] BUN/Creatinine Ratio 21 7 - 23 12/24/2022 2:23 AM CDT [facility] Osmolality Calculated 288 270 - 300 mOsm/kg 12/24/2022 2:23 AM T [facility] Albumin/Globulin Ratio 0.7(L) 1.1 - 2.3 12/24/2022 2:23 AM T [facility] eGFR by CKD-EPI >90 >=90 mL/min/1.7 3 m2 12/24/2022 2:23 AM T [facility] Blood BLOOD SPECIMEN / Unknown Lab Venipuncture / Unknown 12/24/2022 1:35 AM CDT 12/24/2022 1:52 AM CDT Jerrod Rodriguez MD LAB - CHEMISTR Y ORDERABLES Performing Organization Address City/State/[facility] Co de Phone Number [facility] [address] [place] [id number], [facility] [phone] documented in this encounter Visit Diagnoses Diagnosis [...] 12/24/2022 8:45 AM CDT 5 mg HYDROcodone-acetaminophen ([place]) 5-325 MG tablet 1 tablet 1 tablet, [...] 2:37 AM CDT 1 tab let HYDROcodone-acetaminophen ([place]) 5-325 MG tablet 1 tablet 1 tablet, [...] - Provider: Cipriano Martin RN) HYDROcodone-acetaminop hen ([place]) 5-325 MG tablet 1 tablet (COMPLETED) 1 [...] Wang RN)[id number] ($ Given - Provider: Carley Garica RN) [id number] (Not Administered - Provider: Cipriano [...] PRN Medication Order 12/24/2022 12/25/2022 12/26/2022 HYDROcodone-acetaminophen ([place]) 5-325 MG tablet 1 tablet 1 tablet, [...] RN) documented in this encounter Care Teams Fur Vault Attendant Relationship Specialty Start Date End Date Justen Gale MD PCP - General 07/05/21 documented as of this encounter
--- OUTSIDE RECORDS SUMMARY | 2024-04-26 06:54 | XMS_ITS | Encounter Summary ---
Author Organization [facility] Address [address] [facility] [place] [address] Care Team Providers Care Circuit Court Magistrate Name Role Phone Justen Gale MD Primary Care Provider [phone] Reason for Visit * Reason Onset Date Comments Surgery Scheduling 12/15/2022 Encounter Details Date Type Department Care Team (Late st Contact Info) Description 12/15/2022 Telephone [facility] - Neurosurgery [address] [place] [address], [place] [address] Angeline Avila, director drug Scheduling Social History Tobacco Use Types Packs/Day [...] on filedocumented in this encounter Care Teams Circuit Court Magistrate Relationship Specialty Start Date End Date Justen Gale MD PCP - General 07/05/21 documented as of this encounter
--- OUTSIDE RECORDS SUMMARY | 2024-04-26 06:54 | XMS_ITS | Encounter Summary ---
Author Organization [facility] Address [address] [facility] [place] [address] Care Team Providers Care Craft Coordinator Name Role Phone Justen Gale MD Primary Care Provider [phone] Encounter Details Date Type Department Care Team (Late st Contact Info) Description 12/15/2022 Orders Only [facility] - Neurosurgery [address] [place] [address], [place] [address] Maxi Gregg MD [address] [place] [address] [place] [address] Pre-op testing ; Low back [...] present documented in this encounter Care Teams Craft Coordinator Relationship Specialty Start Date End Date Justen Gale MD PCP - General 07/05/21 documented as of this encounter
--- OUTSIDE RECORDS SUMMARY | 2024-04-26 06:54 | XMS_ITS | Encounter Summary ---
Author Organization [facility] Address [address] [facility] [place] [address] Care Team Providers Care Speedboat Driver Name Role Phone Justen Gale MD Primary Care Provider [phone] Reason for Visit * Reason Onset Date Comments Medication Reaction 06/28/2022 Encounter Details Date Type Department Care Team (Late st Contact Info) Description 06/28/2022 Telephone [facility] [address] [place] [address] Caroline Sultana RN Medication Reaction Social History [...] medication. To Esteban ACEVEDO for treatment recommendations. [employer] COMBINATION TEACHER documented in this encounter Plan of Treatment Not on file documented as of this encounter Visit Diagnoses Not on filedocumented in this encounter Care Teams Speedboat Driver Relationship Specialty Start Date End Date Justen Gale MD PCP - General 07/05/21 documented as of this encounter
--- OUTSIDE RECORDS SUMMARY | 2024-04-26 06:54 | XMS_ITS | Encounter Summary ---
Author Organization [facility] Address [address] [facility] [place] [address] Care Team Providers Care Mortgage Loan Reviewer Name Role Phone Justen Gale MD Primary Care Provider [phone] Reason for Visit * Radiology Services (Routine) - Closed Specialty Diagnoses / Procedures Referred By Contac t Referred To Contact CT Scan Diagnoses Acute hematogenous osteomyelitis, unspecified site (HCC) Procedures CT LUMBAR SPINE W CONTRAST Jazmyne Torres MD [address] [place] [address] [facility] [address] [place] [address] Referral ID Status Reason Start Date Expiration Date Visits Re quested Visits Authorized [id number] Closed 12/06/2021 12/06/2022 1 1 Encounter Details Date Type Department Care Team (Latest Contact Info) Description 12/16/2021 12:00 PM CDT - 12/16/2021 11:59 PM CDT Hospital Encounter [facility] CAT SCAN [address] [place] [address] Jazmyne Griffith MD [address] [place] [address] Discharge Disposition: Home or Self [...] Reasons: for restless legs 06/05/2023 HYDROcodone-acetamino phen ([place]) 7.5-325 MG tablet Take 1 tablet by mouth every 6 hours as needed for Pain 04/04/2022 naloxone HCl (NARCAN) 4 MG/0.1ML nasal spray as needed 05/13/2021 04/20/2023 nystatin (Mycostatin) 816280 UNIT/ML suspension Swish and spit 5 mL as directed 12/07/2021 04/04/2022 NYSTOP 898067 UNIT/GM powder APPLY TO THE AFFECTED AREA [...] DATE/TIME OF EXAM: ??12/16/2021 12:24 PM, LOCATION ??[facility] INDICATION: M86.00: Acute hematogenous osteomyelitis, unspecified site [...] CONTRAST, DATE/TIME OF EXAM: :24 PM, LOCATION [facility] INDICATION: M86.00: Acute hematogenous osteomyelitis, unspecified site [...] mL documented in this encounter Care Teams Mortgage Loan Reviewer Relationship Specialty Start Date End Date Justen Gale MD PCP - General 07/05/21 documented as of this encounter
--- OUTSIDE RECORDS SUMMARY | 2024-04-26 06:54 | XMS_ITS | Encounter Summary ---
Author Organization [facility] Address [address] [facility] [place] [address] Care Team Providers Care Beaver Trapper Name Role Phone Justen Gale MD Primary Care Provider [phone] Reason for Visit * Auth/Cert (Routine) Specialty Diagnoses / Procedures Referred By Contkristina t Referred To Contact Diagnoses Diagnosis unknown Diagnosis unknown [R69] Procedures TX INSRT/REPL SPINAL NEUROSTIM PULSE GEN/RECV INSERTION/REPLACEMENT SPINAL CORD STIMULATOR Referral ID Status Reason Start Date Expiration Date Visits Re quested Visits Authorized [id number] 1 1 Encounter Details Date Type Department Care Team (Late st Contact Info) Description 02/16/2023 1:13 PM CDT Anesthesia Event [facility] [address] [place] [address] Dillon Zamora, DO [address] [facility] [place] [address] Cordelia Barrientos, REFRIGERATOR CRATER-DIAMOND SELECTOR [address] [facility] [place] [address] Anesthesia Record Procedure Summary Procedure Name Responsible [...] and heating? Not hard at all 12/23/2022 [facility] of Occupat ional Health - Occupational Stress [...] in a senior care (including now)? No 12/23/2022 Sex and Gender [...] No notable events documented. * Darshan Guerrero APRN-DIAMOND SELECTOR - 02/16/2023 12:33 PM CDT ANESTHESIA PREOPERATIVE [...] procedural Anesthetic Plan was discussed with the DIAMOND SELECTOR. BMI, Height, Weight Tobacco History Estimated body [...] headache type (+) CVA (cerebral vascular accident) ([facility]/HCC) (+) Intractable chronic post-traumatic headache Pulmonary (+) LUL (obstructive sleep apnea) Endocrine (+) Type 2 diabetes mellitus without complication ([facility]) Problem List: Patient Active Problem List Diagnosis Date Noted ??? Chronic back pain 08/16/2021 Priority: High ??? CVA (cerebral vascular accident) ([facility]/HCC) 01/24/2018 Priority: High ??? Anxiety and depression 11/12/2017 Priority: High ??? Chronic anticoagulation 11/09/2017 Priority: High ??? Essential hypertension 10/23/2017 Priority: High Last Assessment & Plan: On lisinopril ??? Type 2 diabetes mellitus without complication ([facility]/HCC) 08/22/2017 Priority: High Last Assessment & Plan: [...] subsegmental pulmonary emboli without acute cor pulmonale ([facility]/HCC) 11/12/2021 Priority: Not Prioritized ??? Wound infection complicating hardware ([facility]) 11/12/2021 Priority: Not Prioritized ??? Preoperative examination 10/30/2021 Priority: Not Prioritized ??? Acute post-operative pain 10/30/2021 Priority: Not Prioritized ??? S/P insertion of spinal cord stimulator 09/16/2021 Priority: Not Prioritized Medical History: Past Medical History: Diagnosis Date ??? Breast cancer ([facility]) ??? Chest pain ??? DVT (deep venous thrombosis) ([facility]) ??? GERD (gastroesophageal reflux disease) ??? LUL (obstructive sleep apnea) w cpap ??? Other pulmonary embolism without acute cor pulmonale ([facility]/HCC) ??? rls ??? Type 2 diabetes mellitus without complications ([facility]) Surgical History: Past Surgical History: [...] THE BATTERY IN THE LOWER LUMBAR REGION INDUSTRIAL RELATIONS COUNSELOR Status: No LMP recorded. Patient is postmenopausal. Postmenopausal OB History No obstetric history on file. Covid Vaccine: Lab Results: Recent Labs Base Name 02/16/23 1213 [id number] 175* SPECIMENTYPE Cap Fingerstick Recent Labs Component [...] procedural Anesthetic Plan was discussed with the DIAMOND SELECTOR and anesthesiologist. BMI, Height, Weight Tobacco History [...] vancomycin 1,500 mg 1,500 mg at 02/16/23 8729 Allergies: Allergies Allergen Reactions ??? Latex Rash [...] headache type (+) CVA (cerebral vascular accident) ([facility]) (+) Intractable chronic post-traumatic headache Pulmonary (+) LUL (obstructive sleep apnea) Endocrine (+) Type 2 diabetes mellitus without complication ([facility]) Problem List: Patient Active Problem List Diagnosis Date Noted ??? Chronic back pain 08/16/2021 Priority: High ??? CVA (cerebral vascular accident) ([facility]) 01/24/2018 Priority: High ??? Anxiety and depression 11/12/2017 Priority: High ??? Chronic anticoagulation 11/09/2017 Priority: High ??? Essential hypertension 10/23/2017 Priority: High Last Assessment & Plan: On lisinopril ??? Type 2 diabetes mellitus without complication ([facility]) 08/22/2017 Priority: High Last Assessment [...] THE BATTERY IN THE LOWER LUMBAR REGION INDUSTRIAL RELATIONS COUNSELOR Status: No LMP recorded. Patient is postmenopausal. Postmenopausal OB History No obstetric history on file. Covid Vaccine: Lab Results: Recent Labs Base Name 02/16/23 1213 [id number] 175* SPECIMENTYPE Cap Fingerstick Recent Labs Component [...] this encounter Procedure Notes * Cordelia Barrientos APRN-DIAMOND SELECTOR - 02/16/2023 1:32 PM CDTAssociated Order(s): ETT Placement Endotracheal Tube Placement: Patient Location: OR. Intubation Event Date/Time: 02/16/2023 1:21 PM Procedure: intubation (91045). Procedure Section: Sedation: under general anesthesia. Indications [...] PADDLE AND WIRE SYSTEM Surgeon(s): Primary: Maxi Gregg MD Preop Diagnosis: [...] Event Date/Time: ??02/16/2023 1:21 PM Procedure: intubation (51212). Procedure Section: ?? Sedation: under general anesthesia. [...] mg documented in this encounter Care Teams Beaver Trapper Relationship Specialty Start Date End Date Justen Gale MD PCP - General 07/05/21 documented as of this encounter
--- OUTSIDE RECORDS SUMMARY | 2024-04-26 06:54 | XMS_ITS | Encounter Summary ---
Author Organization [facility] Address [address] [facility] [place] [address] Care Team Providers Care Thermal Cutting Tracer Machine Operator Name Role Phone Justen Gale MD Primary Care Provider Reason for Visit * Reason Onset Date Comments Follow-up 12/07/2021 Encounter Details Date Type Department Care Team (Late st Contact Info) Description 12/07/2021 Telephone [facility] [address] [facility], [facility] [place] [address] Jazmyne Torres MD [address] [place] [address] Follow-up Social History Tobacco Use Types Packs/Day [...] on filedocumented in this encounter Care Teams Thermal Cutting Tracer Machine Operator Relationship Specialty Start Date End Date Justen Gale MD PCP - General 07/05/21 documented as of this encounter
--- OUTSIDE RECORDS SUMMARY | 2024-04-26 06:54 | XMS_ITS | Encounter Summary ---
Author Organization [facility] Address [address] [facility] [place] [address] Care Team Providers Care Apple Packing Header Name Role Phone Justen Gale MD Primary Care Provider [phone] Reason for Visit * Reason Comments Cystoscopy Uti w hematuria Encounter Details Date Type Department Care Team (Late st Contact Info) Description 06/08/2022 1:00 PM EMBLEM FUSER TENDER Procedure visit [facility] Urology [address] [place] [address] Opal Orellana, LABORER-AGRICULTURAL EXTENSION SPECIALIST [address] [place] [id number] Urinary tract infection with hematuria, site unspecified [...] Comments Blood Pressure 179/98 06/08/2022 12:49 PM EMBLEM FUSER TENDER Pulse 80 06/08/2022 12:49 PM EMBLEM FUSER TENDER Temperature - - Respiratory Rate - - Oxygen Saturation 97% 06/08/2022 12:49 PM EMBLEM FUSER TENDER Inhaled Oxygen Concentration - - Weight - [...] Opal Orellana APRN-CNP - 06/08/2022 1:25 PM EMBLEM FUSER TENDER -To schedule an appointment please call [phone]. -To reach the [place]'s office please call [phone]. -For any nursing or surgery questions please call [phone]. -FAX: EM FUSER TENDER documented in this encounter Progress Notes * Opal Orellana APRN-CNP - 06/08/2022 1:16 PM CST [facility] Division of Urologic Surgery ITA Jones Date of Visit: 06/08/2022 Patient Name: Karly Marques : 1955 Medical Record: [id number] Contact (home) Age: [age] year old Sex: female Referring Physician: Justen Gale MD [address] [place], [place] [id number] Chief Complaint: Recurrent uti History of Present [...] HumaLOG KwikPen 100 UNIT/ML pen ??? HYDROcodone-acetaminophen ([place]) 7.5-325 MG tablet Take 1 (one) tablet by mouth every 6 hours as needed for Pain ??? insulin pen needle (B-D ULTRAFINE III SHORT PEN) 31G X 8 MM needle 4 times daily 300 Each PRN ??? Lancets (DudaTOUCH DELICA PLUS 33G EXTRA FINE LANCET) USE [...] the ACR Incidental Findings Committee. J Am Wagn Radiol. 2018 May;15(2):264-273. Management of Incidental Adrenal Masses: A White Paper of the ACR Incidental Findings Committee. J Am Wang Radiol. 2017 Nov;14(8):4531-3561. Laboratory Studies: Procedure visit on 06/08/22 URINALYSIS AUTO - POINT OF CARE (AMB) [facility] Result Value Ref Range Glucose UA 2+ Bilirubin UA POCT - Ketones UA POCT - Specific [place] UA 1.030 Blood Urine POCT 1+ pH UA 5.5 Protein UA +- Urobilinogen UA - Nitrite UA - WBC UA - Specimen: Urine Component Ref Range & Units 1 d ago Comments Color, ur Yellow Yellow Testing performed by: [address] [address] Clarity, ur Clear Clear Testing performed by: [address] [address] Specific gravity, ur 1.003 - 1.030 1.020 Testing performed by: [address] [address] pH, urine 6.0 Testing performed by: [address] [address] Protein, ur ql Negative Negative Testing performed by: [address] [address] Glucose, ur ql Negative Negative Testing performed by: [address] [address] Ketones, ur Negative Negative Testing performed by: [address] [address] Bilirubin, ur Negative Negative Testing performed by: [address] [address] Blood, ur Negative Trace??Abnormal?? Testing performed by: [address] [address] Urobilinogen, ur <2.0 mg/dL 0.2 Testing performed by: [address] [address] Nitrite, ur Negative Negative Testing performed by: [address] [address] Leukocyte esterase, ur Negative Negative Testing performed by: [address], [place]., [address] UA reflex comment Reflex to microscopic UA [...] taking it. ITA Jones 06/08/2022 1:16 PM EM FUSER TENDER documented in this encounter Procedure Notes * Opal Orellana APRN-CNP - 06/08/2022 2:18 PM CSTAssociated Order(s): PROC CYSTOURETHROSCOPY Procedure(s): OH CYSTOURETHROSCOPY Pre-Procedure Diagnose(s): Microhematuria Cystoscopy procedure note [...] Will review the IC diet. ITA Jones EM FUSER TENDER documented in this encounter Plan of Treatment Not on file documented as of this encounter Procedures Procedure Name Priority Date/Time Associated Diagnosis Comments OH CYSTOURETHROSCOPY Routine 06/08/2022 2:18 PM EMBLEM FUSER TENDER Microhematuria URINALYSIS AUTO - POINT OF CARE (AMB) [facility] Routine 06/08/2022 Urinary tract infection with hematuria, site unspecified documented in this encounter Results * OH CYSTOURETHROSCOPY (06/08/2022 2:18 PM EMBLEM FUSER TENDER) Narrative Opal Orellana APRN-CNP - 06/08/2022 2:18 PM EMBLEM FUSER TENDER Opal Orellana APRN-CNP ? 06/09/2022 ??9:33 AM [...] POCT - Ketones UA POCT - Specific [place] UA 1.030 Blood Urine POCT 1+ pH UA 5.5 Protein UA +- Urobilinogen UA - Nitrite UA - WBC UA - Urine URINE / Unknown 06/08/2022 Opal Orellana LABORER-AGRICULTURAL EXTENSION SPECIALIST LAB - POINT O F CARE ORDERABLES documented in this encounter Visit Diagnoses Diagnosis Urinary tract infection with hematuria, site unspecified- Primary Chronic bladder pain Microhematuria Microscopic hematuria documented in this encounter Care Teams Apple Packing Header Relationship Specialty Start Date End Date Justen Gale MD PCP - General 07/05/21 documented as of this encounter
--- OUTSIDE RECORDS SUMMARY | 2024-04-26 06:54 | XMS_ITS | Encounter Summary ---
Author Organization [facility] Address [address] [facility] [place] [address] Care Team Providers Care Zmt Operator Name Role Phone Justen Gale MD Primary Care Provider [phone] Reason for Visit * Reason Onset Date Comments Follow-up 01/06/2023 Encounter Details Date Type Department Care Team (Late st Contact Info) Description 01/06/2023 Telephone [facility] [address] [place] [address], [facility] [place] [address] Angeline Avila, RN Follow-up Social [...] and heating? Not hard at all 12/23/2022 [facility] of Occupat ional Health - Occupational Stress [...] on filedocumented in this encounter Care Teams Zmt Operator Relationship Specialty Start Date End Date Justen Gale MD PCP - General 07/05/21 documented as of this encounter
--- OUTSIDE RECORDS SUMMARY | 2024-04-26 06:54 | XMS_ITS | Encounter Summary ---
Author Organization [facility] Address [address] [place] [address] Care Team Providers Care Sisal Operator Name Role Phone Justen Gale MD Primary Care Provider [phone] Encounter Details Date Type Department Care Team (Latest Contact Info) Description 02/06/2023 12:24 PM CDT - 02/06/2023 11:59 PM CDT Hospital Encounter [facility] [address] [place] [address] Maxi Gregg MD [address] [place] [address] Discharge Disposition: Home or Self [...] and heating? Not hard at all 12/23/2022 [facility] [place] of Occupat ional Health - Occupational Stress [...] slept in a mcfp (including now)? No 12/23/2022 Sex and Gender [...] mouth once daily 07/17/2022 05/19/2023 HYDROcodone-acetaminoph en (Omega) 10-325 MG tablet Take 1 (one) tablet [...] UA 2+ /LPF 02/06/2023 1:46 PM CDT [facility] Hyaline Casts 3-5(A) 0 - 2 /LPF 02/06/2023 1:46 PM CDT [facility] Urine URINE SPECIMEN OBTAINED BY CLEAN CATCH PROCEDURE / Unknown Collection / Unknown 02/06/2023 1:31 PM CDT 02/06/2023 1:33 PM CDT Narrative [facility] - 02/06/2023 1:46 PM CDT Maxi Gregg MD LAB - URINALYSIS ORDERABLES [facility] [address] [place] [address] * (ABNORMAL) URINALYSIS REFLEX MICROSCOPIC REFLEX CULTURE (02/06/2023 1:31 PM CDT) Color UA Yellow Straw, Yellow 02/06/2023 1:43 PM CDT [facility] Clarity UA Clear Clear 02/06/2023 1:43 PM CDT [facility] Glucose UA 3+(A) Negative 02/06/2023 1:43 PM CDT [facility] Bilirubin UA Negative Negative 02/06/2023 1:43 PM CDT [facility] Ketone UA Negative Negative 02/06/2023 1:43 PM CDT [facility] Specific [place] UA 1.020 1.005 - 1.030 02/06/2023 1:43 PM CDT [facility] Blood UA 1+(A) Negative 02/06/2023 1:43 PM CDT [facility] pH UA 5.0 5.0 - 8.0 pH 02/06/2023 1:43 PM CDT [facility] Protein UA Negative Negative 02/06/2023 1:43 PM CDT [facility] Urobilinogen UA Negative Negative mg/dL 02/06/2023 1:43 PM CDT [facility] Nitrite UA Negative Negative 02/06/2023 1:43 PM CDT [facility] Leukocyte UA Negative Negative 02/06/2023 1:43 PM CDT [facility] Urine Microscopy Urine microscopy to follow 02/06/2023 1:43 PM CDT [facility] Reflex Status Culture not indicated 02/06/2023 1:43 PM CDT [facility] Urine URINE SPECIMEN OBTAINED BY CLEAN CATCH PROCEDURE / Unknown Collection / Unknown 02/06/2023 1:31 PM CDT 02/06/2023 1:33 PM CDT [facility] - 02/06/2023 1:43 PM CDT Maxi Gregg MD LAB - URINALYSIS ORDERABLES [facility] [address] [place] [address] * CBC WITH DIFFERENTIAL (02/06/2023 1:31 PM CDT) WBC 8.9 4.4 - 10.7 x10E9/L 02/06/2023 1:41 PM CDT [facility] WBC Corrected 02/06/2023 1:41 PM CDT [facility] RBC 5.05 3.80 - 5.20 x10E12/L 02/06/2023 1:41 PM CDT [facility] Hemoglobin 14.6 12.0 - 15.6 gm/dL 02/06/2023 1:41 PM CDT [facility] Hematocrit 45.5 35.9 - 45.5 % 02/06/2023 1:41 PM CDT [facility] MCV 90.1 80.7 - 98.3 fl 02/06/2023 1:41 PM CDT [facility] MCH 28.9 26.7 - 34.0 pg 02/06/2023 1:41 PM CDT [facility] MCHC 32.1 30.8 - 35.9 gm/dL 02/06/2023 1:41 PM CDT [facility] Platelet Count 264 153 - 416 x10E9/L 02/06/2023 1:41 PM CDT [facility] RDW-CV 13.8 12.1 - 14.9 % 02/06/2023 1:41 PM CDT [facility] MPV 10.0 9.4 - 12.9 fl 02/06/2023 1:41 PM CDT [facility] Neutrophils % 63.1 44.0 - 73.0 % 02/06/2023 1:41 PM CDT [facility] Lymphocytes % 27.2 20.0 - 43.0 % 02/06/2023 1:41 PM CDT [facility] Monocytes % 6.3 5.0 - 13.0 % 02/06/2023 1:41 PM CDT [facility] Eosinophils % 2.8 0.0 - 6.0 % 02/06/2023 1:41 PM CDT [facility] Basophils % 0.4 0.0 - 2.0 % 02/06/2023 1:41 PM CDT [facility] Immature Granulocytes 0.2 0 - 1 % 02/06/2023 1:41 PM CDT [facility] Neutrophil Absolute 5.60 2.01 - 7.14 x10E9/L 02/06/2023 1:41 PM CDT [facility] Lymphocytes Absolute 2.42 1.07 - 3.94 x10E9/L 02/06/2023 1:41 PM CDT [facility] Monocytes Absolute 0.56 0.26 - 1.07 x10E9/L 02/06/2023 1:41 PM CDT [facility] Eosinophils Absolute 0.25 0 - 0.47 x10E9/L 02/06/2023 1:41 PM CDT [facility] Basophils Absolute 0.04 0 - 0.08 x10E9/L 02/06/2023 1:41 PM CDT [facility] Immature Granulocytes Absolute 0.02 0.00 - 0.06 x10E9/L 02/06/2023 1:41 PM CDT [facility] nRBC Auto 0 /100 WBC 02/06/2023 1:41 PM CDT [facility] Blood BLOOD SPECIMEN / Unknown Lab Venipuncture / Unknown 02/06/2023 1:31 PM CDT 02/06/2023 1:33 PM CDT Maxi Gregg MD LAB - HEMATOLOGY ORDERABLES [facility] [address] [place] [address] * (ABNORMAL) BASIC METABOLIC PANEL (CALCIUM TOTAL) (02/06/2023 1:31 PM CDT) [facility] Glucose 258(H) 70 - 105 mg/dL 02/06/2023 2:00 PM CDT [facility] Sodium 136 136 - 145 mmol/L 02/06/2023 2:00 PM CDT [facility] Potassium 3.7 3.5 - 5.1 mmol/L 02/06/2023 2:00 PM CDT [facility] Chloride 103 98 - 107 mmol/L 02/06/2023 2:00 PM CDT [facility] CO2 25 22 - 29 mmol/L 02/06/2023 2:00 PM CDT [facility] Calcium 9.5 8.4 - 10.4 mg/dL 02/06/2023 2:00 PM CDT [facility] Anion Gap 8 6 - 16 mmol/L 02/06/2023 2:00 PM CDT [facility] BUN 13 7 - 26 mg/dL 02/06/2023 2:00 PM CDT [facility] Creatinine 0.93 0.57 - 1.11 mg/dL 02/06/2023 2:00 PM CDT [facility] eGFR by CKD-EPI 68(L) >=90 mL/min/1.7 3 m2 02/06/2023 2:00 PM CDT [facility] Blood BLOOD SPECIMEN / Unknown Lab Venipuncture / Unknown 02/06/2023 1:31 PM CDT 02/06/2023 1:33 PM CDT Maxi Gregg MD LAB - CHEMISTRY ORDERABLES [facility] [address] [place], [place] [id number] * PTT (02/06/2023 1:30 PM CDT) PTT 35.4 23.0 - 38.4 sec 02/06/2023 1:50 PM CDT [facility] Blood BLOOD SPECIMEN / Unknown Lab Venipuncture / Unknown 02/06/2023 1:30 PM CDT 02/06/2023 1:33 PM CDT Narrative [facility] - 02/06/2023 1:50 PM CDT Heparin Therapeutic Range for PTT: ??69.0 - 110.0 seconds. Maxi Gregg MD LAB - COAGULATIO N ORDERABLES Performing Organization Address City/[facility] Co de Phone Number [facility] [address] [place], [place] [id number] * (ABNORMAL) PT-INR (02/06/2023 1:30 PM CDT) PT 25.7(H) 12.1 - 14.8 sec 02/06/2023 1:50 PM CDT [facility] INR 2.5(H) 0.9 - 1.1 02/06/2023 1:50 PM CDT [facility] Blood BLOOD SPECIMEN / Unknown Lab Venipuncture / Unknown 02/06/2023 1:30 PM CDT 02/06/2023 1:33 PM CDT Narrative [facility] - 02/06/2023 1:50 PM CDT Conventional Warfarin Anticoagulant Therapy: INR Reference Range: ??2.0-3.0 Intensive Warfarin Anticoagulant Therapy: INR Reference Range: ? 2.5-3.5 Maxi Gregg MD LAB - COAGULATIO N ORDERABLES Performing Organization Address City/[facility] Co de Phone Number [facility] [address] [place] [phone] documented in this encounter Visit Diagnoses Diagnosis Pre-op testing- Primary Preoperative examination, unspecified documented in this encounter Care Teams Sisal Operator Relationship Specialty Start Date End Date Justen aGle MD PCP - General 07/05/21 documented as of this encounter
--- OUTSIDE RECORDS SUMMARY | 2024-04-26 06:54 | XMS_ITS | Encounter Summary ---
Author Organization [facility] Address [address] [facility] [place] [address] Care Team Providers Care Button Tufter Name Role Phone Justen Gale MD Primary Care Provider [phone] Reason for Referral * Radiology Services (Routine) - Closed Specialty Diagnoses / Procedures Referred By Contac t Referred To Contact CT Scan Diagnoses Acute hematogenous osteomyelitis, unspecified site (HCC) Procedures CT LUMBAR SPINE W CONTRAST Jazmyne Torres MD [address] [place] [address] [facility] [address] [place] [address] Referral ID Status Reason Start Date Expiration Date Visits Re quested Visits Authorized [id number] Closed 12/06/2021 12/06/2022 1 1 Reason for Visit * Reason Onset Date Comments Follow-up 12/06/2021 Encounter Details Date Type Department Care Team (Late st Contact Info) Description 12/06/2021 Telephone [facility] [address] [facility], [facility] [place] [address] Jazmyne Torres MD [address] [place] [address] Follow-up Social History Tobacco Use [...] DATE/TIME OF EXAM: ??12/16/2021 12:24 PM, LOCATION ??[facility] INDICATION: M86.00: Acute hematogenous osteomyelitis, unspecified site [...] CONTRAST, DATE/TIME OF EXAM: :24 PM, LOCATION [facility] INDICATION: M86.00: Acute hematogenous osteomyelitis, unspecified site [...] (HCC) documented in this encounter Care Teams Button Tufter Relationship Specialty Start Date End Date Justen Gale MD PCP - General 07/05/21 documented as of this encounter
--- OUTSIDE RECORDS SUMMARY | 2024-04-26 06:54 | XMS_ITS | Encounter Summary ---
Author Organization [facility] Address [address] [facility] [place] [address] Care Team Providers Care Compliance Clerk Name Role Phone Justen Gale MD Primary Care Provider [phone] Reason for Visit * Auth/Cert (Routine) Specialty Diagnoses / Procedures Referred By Elyssa t Referred To Contact Diagnoses Diagnosis unknown Diagnosis unknown [R69] Procedures OR INSRT/REPL SPINAL NEUROSTIM PULSE GEN/RECV INSERTION/REPLACEMENT SPINAL CORD STIMULATOR Referral ID Status Reason Start Date Expiration Date Visits Re quested Visits Authorized [id number] 1 1 Encounter Details Date Type Department Care Team (Late st Contact Info) Description 02/16/2023 1:10 PM CDT - 02/16/2023 2:45 PM CDT Surgery [facility] [address] [place] [address] Maxi Gregg MD [facility] [phone] PLACEMENT OF NEW BATTERY IN THE LEFT LUMBAR REGION WELL CONNECTION WITH HER PADDLE AND WIRE SYSTEM Surgery Details Date/Time Status Location OR Service Patient Class Case Class Case Type Trauma Case? 02/16/2023 1:10 PM Posted [facility] MAIN OR OR 07 Neurosurgery [...] Special Needs NEEDS C-ARM, SAVAGE REP (RODRÍGUEZ [phone]) NOTIFIED PER OFFICE(ANGELINE) 02/01 TM / SURGEON [...] and heating? Not hard at all 12/23/2022 [facility] [place] of Occupat ional Health - Occupational Stress [...] slept in a alf (including now)? No 12/23/2022 Sex and Gender [...] future appointment date or you may call [phone] to schedule an appointment yourself. The appointment will be located at the [facility], which is the building directly east of [facility], at [address] [facility] [facility] [address]. Please arrive about 15 minutes early for your appointment in order to expedite the registration process. - QUESTIONS/ISSUES: please call Angeline (Dr. Gregg's nurse) at [phone] - ACTIVITY: Activity as tolerated --Avoid heavy [...] an emergency you should be evaluated in [facility]'s Emergency Room - HOME MEDICATION: --Resume [...] mouth once daily 07/17/2022 05/19/2023 HYDROcodone-acetaminoph en (Welch) 10-325 MG tablet Take 1 (one) tablet [...] this encounter H&P Notes * Melly Banks, CERTIFIED FIRST ASSISTANT-Z OS MAINFRAME SYSTEMS PROGRAMMER - 02/16/2023 11:23 AM CDT Neurosurgery Preoperative [...] recurrent UTIs are now managed by urology. [facility] NEURO SPINAL SURGERY HIGH RISK VARIABLES - [...] DAILY HumaLOG KwikPen 100 UNIT/ML pen HYDROcodone-acetaminophen (Welch) 7.5-325 MG tablet Take 1 (one) tablet [...] HumaLOG KwikPen 100 UNIT/ML pen ??? HYDROcodone-acetaminophen (Welch) 7.5-325 MG tablet ??? hydrOXYzine HCl (Atarax) [...] when ready - Dispo: home Melly Banks APRN-Z OS MAINFRAME SYSTEMS PROGRAMMER 02/16/2023 11:23 AM Ascom Pager documented in [...] Implant Name Type Inv. Item Serial No. Retail Shift Manager Lot No. LRB No. Used [employer] 5 [id number] Savage Spine Left 1 Implanted Tyler Nguyen MD * Operative - Maxi Gregg MD - 02/16/2023 1:40 PM CDT ??Operative Report ?? PATIENT NAME:??MOHSEN SALAZAR ? DATE OF :?02/16/2023? CSN: [id number] ?? DATE OF ADMISSION: ??02/16/2023?INTRAOP DATE OF OPERATION: ??02/16/2023? PREOPERATIVE DIAGNOSIS: S/p removal of battery of spinal stimulation ?? POSTOPERATIVE DIAGNOSIS: S/p removal of battery of spinal stimulation ?? PROCEDURE PERFORMED: Placement of new battery of spinal stimulation in the left lumbar region and connection with the wires previously coiled in the right lumbar region. ?? SURGEON: Maxi Gregg M.D. ?? WINDROWER OPERATOR: Tyler Nguyen MD ?ANESTHESIA: General anesthesia. ?? [...] OF CARE Routine 02/16/2023 2:43 PM CDT OR INS/RPLCMT SPI NPGR POCKET 02/16/2023 12:41 PM CDT Diagnosis unknown Special Needs NEEDS C-ARM, SAVAGE REP (RODRÍGUEZ [phone]) NOTIFIED PER OFFICE(ANGELINE) 02/01 TM / SURGEON [...] - 106 mg/dL 02/16/2023 2:50 PM CDT [facility] Specimen Type Cap Fingerstick 2022 2:50 PM CDT [facility] Blood BLOOD SPECIMEN / Unknown 02/16/2023 2:43 PM CDT 02/16/2023 2:50 PM CDT Maxi Gregg MD LAB - POINT OF C ARE ORDERABLES [facility] [address] [place] [address] * (ABNORMAL) PT-INR (02/16/2023 12:20 PM CDT) PT 15.0(H) 12.1 - 14.8 sec 02/16/2023 1:14 PM CDT [facility] INR 1.2(H) 0.9 - 1.1 02/16/2023 1:14 PM CDT [facility] Blood BLOOD SPECIMEN / Unknown Venipuncture / Unknown 02/16/2023 12:20 PM CDT 02/16/2023 12:30 PM CDT Narrative [facility] - 02/16/2023 1:14 PM CDT Conventional Warfarin Anticoagulant Therapy: INR Reference Range: ??2.0-3.0 Intensive Warfarin Anticoagulant Therapy: INR Reference Range: ? 2.5-3.5 Melly Banks APRN-NETTA LAB - COAGULATIO N ORDERABLES Performing Organization Address City/[facility] Co de Phone Number [facility] [address] [place] [address] * (ABNORMAL) GLUCOSE - POINT OF CARE (02/16/2023 12:13 PM CDT) Glucose WB/POC 175(H) 70 - 106 mg/dL 02/16/2023 12:21 PM CDT [facility] Specimen Type Cap Fingerstick 2022 12:21 PM CDT [facility] Blood BLOOD SPECIMEN / Unknown 02/16/2023 12:13 PM CDT 02/16/2023 12:21 PM CDT Maxi Gregg MD LAB - POINT OF C ARE ORDERABLES Performing Organization Address City/State/[facility] Co de Phone Number [facility] [address] [place] [address] documented in this encounter Visit [...] be documented in the MAR., PACU HYDROcodone-acetaminophen (Welch) 7.5-325 MG tablet 1 tablet 1 tablet, [...] every 8 hours., Pre-op 1400 (Due) HYDROcodone-acetaminophen (Welch) 7.5-325 MG tablet 1 tablet (COMPLETED) 1 [...] (Anesthesia Volume Adjustment - Provider: Cordelia Barrientos APRN-MANAGER CLINIC) lactated ringers infusion at 125 mL/hr, Intravenous, [...] Pre-op documented in this encounter Care Teams Compliance Clerk Relationship Specialty Start Date End Date Justen Gale MD PCP - General 07/05/21 documented as of this encounter
--- OUTSIDE RECORDS SUMMARY | 2024-04-26 06:54 | XMS_ITS | Encounter Summary ---
Author Organization [facility] Address [address] [facility] [place] [address] Care Team Providers Care Rigging Helper Name Role Phone Justen Gale MD Primary Care Provider Reason for Visit * Reason Comments Follow-up Surgical discussion Encounter Details Date Type Department Care Team (Late st Contact Info) Description 04/04/2022 3:30 PM FISH BAIT PICKER Office Visit [facility] Neurosurgery [address] [place] [address], [address] [place] [address] Maxi Gregg MD [facility] [place] [address] Infection of spinal cord stimulator, [...] Comments Blood Pressure 143/75 04/04/2022 3:27 PM FISH BAIT PICKER Pulse 90 04/04/2022 3:27 PM FISH BAIT PICKER Temperature - - Respiratory Rate - - Oxygen Saturation 98% 04/04/2022 3:27 PM FISH BAIT PICKER Inhaled Oxygen Concentration - - Weight - [...] Shaun Larkin RN - 04/04/2022 3:40 PM FISH BAIT PICKER Follow up with urology Call and get appointment with us once cleared by urology- get labs done when you come for appt withWvttei Please call Shaun at [phone] with any questions Alternatively you can send us a My Chart message If needed, our fax number is [phone] For any scheduling needs please call [phone] BAIT PICKER documented in this encounter Progress Notes * Melly Banks APRN-NETTA - 04/04/2022 3:48 PM CST Neurosurgery Clinic Progress Note Chief Complaint (CC): SCS consult HISTORY OF PRESENT ILLNESS (HPI): Patient is a 66 year old female with a PMH of breast cancer s/p mastectomy, recurrent PE/DVT, DM 2,RLS, and chronic axial low back pain s/p??T9-8 laminectomy for dorsal root column stimulator placement with [employer] system on 09/16/21, who presents to clinic today to discuss replacement of the battery of her dorsal column spinal stimulator. Patient presented to [facility] as a transfer on 10/30/21 with pain [...] HumaLOG KwikPen 100 UNIT/ML pen ??? HYDROcodone-acetaminophen (Datil) 7.5-325 MG tablet ??? insulin pen needle [...] for dorsal root column stimulator placement with [employer] system on 09/16/21??by Dr. Gregg, c/b [...] 3:48 PM CC: Justen Gale MD (PCP) BAIT PICKER documented in this encounter Plan of Treatment [...] POCT - Ketones UA POCT - Specific [place] UA 1.020 Blood Urine POCT 3+ pH UA 6.5 Protein UA 2+ Urobilinogen UA - Nitrite UA + WBC UA 3+ Urine URINE / Unknown 04/04/2022 Maxi Gregg MD LAB - POINT OF C ARE ORDERABLES documented in this encounter Visit Diagnoses Diagnosis Infection of spinal cord stimulator, sequela- Primary Urinary tract infection with hematuria, site unspecified documented in this encounter Care Teams Rigging Helper Relationship Specialty Start Date End Date Justne Gale MD PCP - General 07/05/21 documented as of this encounter
--- OUTSIDE RECORDS SUMMARY | 2024-04-26 06:54 | XMS_ITS | Encounter Summary ---
Author Organization [facility] Address [address] [facility] [place] [address] Care Team Providers Care Boner Meat Name Role Phone Justen Gale MD Primary Care Provider [phone] Reason for Visit * Reason Comments Establish Care Throat Problem * Evaluate (Routine) - Closed Specialty Diagnoses / Procedures Referred By Elyssa benavides Referred To Contact ENT-Otolaryngology Diagnoses Throat pain Jazmyne Torres MD [address] [place] [address] [facility] [address] [place] [phone] Referral ID Status Reason Start Date Expiration Date V isits Requested Visits Authorized [id number] Closed Specialty Services Required 12/06/2021 12/06/2022 1 1 Encounter Details Date Type Department Care Team (Late st Contact Info) Description 12/14/2021 8:30 AM CDT Office Visit [facility] [address] [place] [address] Jazmyne Torres MD [address] [place] [address] David Cuevas MD [address] [place] [address] [place] [address] Right ear impacted cerumen (Primary Dx); Throat [...] 8:24 AM CDT Thank you for visiting [facility] Otolaryngology - Head & Neck Surgery. We [...] an appointment, please call our office at [phone] Monday through Monday from 8:00 am to4:30 pm. You can also request a routine appointment through your [employer] account. Prescription Refills Contact your pharmacy to [...] the medical exchange at and ask the loading unit operator seating to page the ENT physician assistant store manager operations. *Caller ID blocking service will need to be turned off for your call to be returned. We also specialize in Hearing Aids, Allergy testing, swallowing disorders, voice problems, cancer diagnosis, and so much more. Visit our website at [email or web address] for information about our practice and an [...] some contribution from 4) R>L BPPV, positive Lyford Halpike to R on 12/14/21 5) R [...] 30 days 3.6 mL 0 ??? HYDROcodone-acetaminophen ([place]ellen) 7.5-325 MG tablet Take 1 tablet by mouth every 6 hours as needed for Pain ??? insulin pen needle (B-D ULTRAFINE III SHORT PEN) 31G X 8 MM needle 4 times daily 300 Each PRN ??? Lancets (BeatSwitchTOUCH DELICA PLUS 33G EXTRA FINE LANCET) USE FOUR TIMES DAILY ??? LANTUS SOLOSTAR pen Inject 10 (ten) Units subcutaneously once daily for 30 days 3 mL 0 ??? naloxone HCl (NARCAN) 4 MG/0.1ML nasal spray as needed ??? nystatin (Mycostatin) 822111 UNIT/ML suspension Swish and spit 5 mL as directed ??? NYSTOP 668108 UNIT/GM powder APPLY TO THE AFFECTED AREA [...] uses cane Neuro:cranial nerves III-XII grossly intact, Lyford Halpike positive to R CV/Pulm: Normal respirations [...] 2% and Nadir-Synephrine 1/2% Endoscopy Type: Flexible Fnqrc-Iuvlpxtzcbotsh-Hsyqyhlmhiqg Procedure Details: Informed consent was obtained. The [...] some contribution from 4) R>L BPPV, positive Lyford Halpike to R on 12/14/21 5) R [...] 2% and Nadir-Synephrine 1/2% Endoscopy Type: Flexible Jjkzp-Gekqcndzoudzxo-Klwyoicbfurv Procedure Details: Informed consent was obtained. The [...] ENDOSCOPY-LARYNX (12/14/2021 8:58 AM CDT) Narrative David Cuevsa MD - 12/14/2021 8:58 AM CDT David Cuevas MD ? 12/14/2021 ??9:28 AM Procedure Note Anesthesia: Lidocaine 2% and Nadir-Synephrine 1/2% Endoscopy Type: ??Flexible Bqbdm-Fqshsfxwfxhfzl-Qnkvqwsqjkpx Procedure Details: Informed consent was obtained. ??The [...] ear documented in this encounter Care Teams Boner Meat Relationship Specialty Start Date End Date Justen Gale MD PCP - General 07/05/21 documented as of this encounter
--- OUTSIDE RECORDS SUMMARY | 2024-04-26 06:54 | XMS_ITS | Encounter Summary ---
Author Organization [facility] Address [address] [facility] [place] [address] Care Team Providers Care Transmission Technician Name Role Phone Justen Gale MD Primary Care Provider [phone] Reason for Visit * Reason Onset Date Comments UTI 06/07/2022 Encounter Details Date Type Department Care Team (Late st Contact Info) Description 06/07/2022 Telephone [facility] [address] [place] [address] Caroline Sultana RN UTI Social History Tobacco [...] hypertension. Could discuss alternate anticholinergic with Lizzy ACEVEDO at her appointment tomorrow. She will keep the appointment. TERY WORKER * Telephone Encounter - Caroline Sultana RN [...] me later today after she is seen. TERY WORKER documented in this encounter Plan of Treatment Not on file documented as of this encounter Visit Diagnoses Not on filedocumented in this encounter Care Teams Transmission Technician Relationship Specialty Start Date End Date Justen Gale MD PCP - General 07/05/21 documented as of this encounter
--- OUTSIDE RECORDS SUMMARY | 2024-04-26 06:54 | XMS_ITS | Encounter Summary ---
Author Organization [facility] Address [address] [facility] [place] [address] Care Team Providers Care Music Professionals Name Role Phone Justen Gale MD Primary Care Provider [phone] Reason for Visit * Reason Onset Date Comments Surgery Scheduling 01/25/2023 Encounter Details Date Type Department Care Team (Late st Contact Info) Description 01/25/2023 Telephone [facility] [address] [place] [address], [place] [address] Angeline Avila, cull grader Scheduling Social History Tobacco Use Types Packs/Day [...] and heating? Not hard at all 12/23/2022 [facility] [place] of Occupat ional Health - Occupational Stress [...] slept in a jail (including now)? No 12/23/2022 Sex and Gender [...] filedocumented in this encounter Care Teams Music Professionals Relationship Specialty Start Date End Date Justen Gale MD PCP - General 07/05/21 documented as of this encounter
--- OUTSIDE RECORDS SUMMARY | 2024-04-26 06:54 | XMS_ITS | Encounter Summary ---
Author Organization [facility] Address [address] [facility] [place] [address] Care Team Providers Care Hand Tier Name Role Phone Justen Gale MD Primary Care Provider [phone] Encounter Details Date Type Department Care Team (Latest Contact Info) Description 02/06/2023 12:20 PM CDT - 02/06/2023 12:23 PM CDT Hospital Encounter [facility] Services - Radiology [address] [place] [address] Maxi Gregg MD [facility] [place] [address] Discharge Disposition: Home or Self [...] and heating? Not hard at all 12/23/2022 [facility] [place] of Occupat ional Health - Occupational Stress [...] SoloStar pen 40 (forty) Units once 02/25/2022 ComparisimTOUCH ULTRA test strip 4 times daily 02/01/2021 [...] mouth once daily 07/17/2022 05/19/2023 HYDROcodone-acetaminoph en ([place]) 10-325 MG tablet Take 1 (one) tablet [...] stimulator documented in this encounter Care Teams Hand Tier Relationship Specialty Start Date End Date Justen Gale MD PCP - General 07/05/21 documented as of this encounter
--- OUTSIDE RECORDS SUMMARY | 2024-04-26 06:54 | XMS_ITS | Encounter Summary ---
Author Organization [facility] Address [address] [facility] [place] [address] Care Team Providers Care Microbiology Teacher Name Role Phone Justen Gale MD Primary Care Provider [phone] Reason for Visit * Reason Onset Date Comments Results 05/02/2022 Encounter Details Date Type Department Care Team (Late st Contact Info) Description 05/02/2022 Telephone [facility] [address] [place] [address] Opal Orellana M, OPEN CLAIMS REPRESENTATIVE-OIM CONSULTANT [address] [place] [phone] Results Social History Tobacco Use Types Packs/Day [...] Opal Orellana APRN-CNP - 05/02/2022 12:30 PM CLUB CAR ATTENDANT Patient allergic to all other options of oral antibiotics for reported infection. ITA Jones 05/02/2022 12:39 PM CAR ATTENDANT documented in this encounter Plan of Treatment Not on file documented as of this encounter Visit Diagnoses Not on filedocumented in this encounter Care Teams Microbiology Teacher Relationship Specialty Start Date End Date Justen Gale MD PCP - General 07/05/21 documented as of this encounter
--- OUTSIDE RECORDS SUMMARY | 2024-04-26 06:54 | XMS_ITS | Encounter Summary ---
Author Organization [facility] Address [address] [facility] [place] [address] Care Team Providers Care Plastic Process Technician Name Role Phone Justen Gale MD Primary Care Provider [phone] Reason for Visit * Reason Onset Date Comments Surgery Scheduling 12/15/2022 Encounter Details Date Type Department Care Team (Late st Contact Info) Description 12/15/2022 Telephone [facility] Neuro[facility] [address] [place] [address], [place] [address] Angeline Avila, district fire management officer Scheduling Social History Tobacco Use Types Packs/Day [...] will need to arrive at 0900 to [facility] 1st floor [facility] Surgery:placement of new battery in the left [...] to surgery -no Motrin, Advil, Naproxen, Aleve, Dimple-Randolph, Meloxicam, Ibuprofen, Fish Oil , Celebrex For any questions please call Angeline [phone] documented in this encounter Plan of Treatment Not on file documented as of this encounter Visit Diagnoses Not on filedocumented in this encounter Care Teams Plastic Process Technician Relationship Specialty Start Date End Date Justen Gale MD PCP - General 07/05/21 documented as of this encounter
--- OUTSIDE RECORDS SUMMARY | 2024-04-26 06:54 | XMS_ITS | Encounter Summary ---
Author Organization [facility] Address [address] [facility] [place] [address] Care Team Providers Care Remote Medical Coder Name Role Phone Justen Gale MD Primary Care Provider [phone] Reason for Visit * Reason Comments Refill Request Encounter Details Date Type Department Care Team (Late st Contact Info) Description 12/13/2022 Refill [facility] - Urology [address] [place] [address] [address] [place] [phone] Opal Orellana, OCEANOGRAPHER GEOLOGICAL-WEB UI DESIGNER [address] [place] [phone] Refill Request Social History Tobacco Use Types [...] on filedocumented in this encounter Care Teams Remote Medical Coder Relationship Specialty Start Date End Date Justen Gale MD PCP - General 07/05/21 documented as of this encounter
--- OUTSIDE RECORDS SUMMARY | 2024-04-26 06:54 | XMS_ITS | Encounter Summary ---
Author Organization [facility] Address [address] [place] [address] Care Team Providers Care Devops Developer Name Role Phone Justen Gale MD Primary Care Provider [phone] Encounter Details Date Type Department Care Team (Late st Contact Info) Description 05/04/2022 Orders Only [facility] [address] [place] [address] Opal Orellana, CREW LEADER-SYSTEM ARCHITECT [address] [place] [address] Urinary tract infection with hematuria, [...] medication- ref # [id number] Ref # [id number] decision w/in 24-48 hours will notify pharmacy. ITA Jones 05/04/2022 2:45 PM PREAD CUTTER documented in this encounter Plan of Treatment Not on file documented as of this encounter Visit Diagnoses Diagnosis Urinary tract infection with hematuria, site unspecified- Primary Allergy to drug Other drug allergy documented in this encounter Care Teams Devops Developer Relationship Specialty Start Date End Date Justen Gale MD PCP - General 07/05/21 documented as of this encounter
--- OUTSIDE RECORDS SUMMARY | 2024-04-26 06:54 | XMS_ITS | Encounter Summary ---
Author Organization [facility] Address [address] [facility] [place] [address] Care Team Providers Care Oriental Rug Repairer Name Role Phone Justen Gale MD Primary Care Provider Reason for Visit * Reason Onset Date Comments Surgery Scheduling 01/18/2023 Encounter Details Date Type Department Care Team (Late st Contact Info) Description 01/18/2023 Telephone [facility] Neuro[facility] [address] [place] [address], [place] [address] Angeline Avila, clinical biochemical geneticist Scheduling Social History Tobacco Use Types Packs/Day [...] and heating? Not hard at all 12/23/2022 [facility] [place] of Occupat ional Health - Occupational Stress [...] on filedocumented in this encounter Care Teams Oriental Rug Repairer Relationship Specialty Start Date End Date Justen Gale MD PCP - General 07/05/21 documented as of this encounter
--- OUTSIDE RECORDS SUMMARY | 2024-04-26 06:54 | XMS_ITS | Encounter Summary ---
Author Organization [facility] Address [address] [facility] [place] [address] Care Team Providers Care Borough Coordinator Name Role Phone Justen Gale MD Primary Care Provider [phone] Encounter Details Date Type Department Care Team (Late st Contact Info) Description 01/27/2023 Orders Only [facility] - Neurosurgery [address] [place] [address], [place] [address] Maxi Gregg MD [address] [place] [address] [place] [address] Pre-op testing ; Low back [...] and heating? Not hard at all 12/23/2022 [facility] [place] of Occupat ional Health - Occupational Stress [...] slept in a fci (including now)? No 12/23/2022 Sex and Gender [...] present documented in this encounter Care Teams Borough Coordinator Relationship Specialty Start Date End Date Justen Gale MD PCP - General 07/05/21 documented as of this encounter
--- OUTSIDE RECORDS SUMMARY | 2024-04-26 06:54 | XMS_ITS | Encounter Summary ---
Author Organization [facility] Address [address] [facility] [place] [address] Care Team Providers Care Tire And Tube Repairer Name Role Phone Justen Gale MD Primary Care Provider [phone] Encounter Details Date Type Department Care Team [...] on filedocumented in this encounter Care Teams Tire And Tube Repairer Relationship Specialty Start Date End Date Justen Gale MD PCP - General 07/05/21 documented as of this encounter
--- OUTSIDE RECORDS SUMMARY | 2024-04-26 06:54 | XMS_ITS | Encounter Summary ---
Author Organization [facility] Address [address] [place] [address] Care Team Providers Care Chain Carrier Name Role Phone Justen Gale MD Primary Care Provider [phone] Reason for Visit * Reason Onset Date Comments Results 06/28/2022 Encounter Details Date Type Department Care Team (Late st Contact Info) Description 06/28/2022 Telephone [facility] [address] [facility], [place] [address] Opal Orellana, DAIRY FARM MANAGER-EXECUTIVE CHEF [address] [place] [address] [place] [phone] Results Social History Tobacco Use Types Packs/Day [...] Opal Orellana APRN-CNP - 06/28/2022 1:37 PM CHAIR INSPECTOR Patient will stop trospium and start oxybutynin 10 mg XL due to sensitivity to the mediation. ITA Jones 06/28/2022 1:42 PM R INSPECTOR documented in this encounter Plan of Treatment Not on file documented as of this encounter Visit Diagnoses Diagnosis OAB (overactive bladder)- Primary Hypertonicity of bladder documented in this encounter Care Teams Chain Carrier Relationship Specialty Start Date End Date Justen Gale MD PCP - General 07/05/21 documented as of this encounter
--- OUTSIDE RECORDS SUMMARY | 2024-04-26 06:54 | XMS_ITS | Encounter Summary ---
Author Organization [facility] Address [address] [facility] [place] [address] Care Team Providers Care Presentation Specialist Name Role Phone Justen Gale MD Primary Care Provider [phone] Reason for Visit * Reason Comments Establish Care SCS BATTERY PLACEMEN T Encounter Details Date Type Department Care Team (Late st Contact Info) Description 08/15/2022 1:15 PM CDT Office Visit [facility] Neurosurgery [address] [place] [address], [address] [place] [address] Maxi Gregg MD [facility] [phone] S/P insertion of spinal cord stimulator (Primary [...] a surgery date -Surgery will be at [facility] -arrive at [place] 1st floor Surgery department You will need [...] please call Sonali (Dr. Gregg's nurse) at [phone] To schedule an appointment, please call [phone] If needed, the fax number is [phone] documented in this encounter Progress Notes * [...] DAILY HumaLOG KwikPen 100 UNIT/ML pen HYDROcodone-acetaminophen ([place]) 7.5-325 MG tablet Take 1 (one) tablet [...] of your patient. Maxi Gregg MD LEVI/kerri .[id number] .[id number] Doc ID: [id number] Voice Job ID: [id number] documented in this encounter Plan of Treatment [...] stimulator documented in this encounter Care Teams Presentation Specialist Relationship Specialty Start Date End Date Justen Gale MD PCP - General 07/05/21 documented as of this encounter
--- OUTSIDE RECORDS SUMMARY | 2024-04-26 06:54 | XMS_ITS | Encounter Summary ---
Author Organization [facility] Address [address] [facility] [place] [address] Care Team Providers Care Proposal Editor Name Role Phone Justen Gale MD Primary Care Provider [phone] Reason for Visit * Reason Onset Date Comments Appointment 01/04/2022 Encounter Details Date Type Department Care Team (Late st Contact Info) Description 01/04/2022 Telephone [facility] [address] [place] [address] Leyda Crane Appointment Social History Tobacco Use [...] appointment change 01/10 at 10:30 am questions [phone] documented in this encounter Plan of Treatment Not on file documented as of this encounter Visit Diagnoses Not on filedocumented in this encounter Care Teams Proposal Editor Relationship Specialty Start Date End Date Justen Gale MD PCP - General 07/05/21 documented as of this encounter
--- OUTSIDE RECORDS SUMMARY | 2024-04-26 06:54 | XMS_ITS | Encounter Summary ---
Author Organization [facility] Address [address] [facility] [place] [address] Care Team Providers Care Stone Trimmer Name Role Phone Justen Gale MD Primary Care Provider [phone] Encounter Details Date Type Department Care Team (Latest Contact Info) Description 12/06/2021 12:51 PM CDT - 12/06/2021 11:59 PM CDT Hospital Encounter [facility] OP DRAW STATION [address] [place] [phone] Discharge Disposition: Home or Self Care Social [...] FINE LANCET) USE FOUR TIMES DAILY 03/10/2021 Knowledge Delivery SystemsTOUCH ULTRA test strip 4 times daily 02/01/2021 [...] days 3.6 mL 11/16/2021 12/16/2021 HYDROcodone-acetamin ophen ([place]) 7.5-325 MG tablet Take 1 tablet by mouth every 6 hours as needed for Pain 04/04/2022 LANTUS SOLOSTAR pen Inject 10 (ten) Units subcutaneously once daily for 30 days 3 mL 11/16/2021 12/16/2021 naloxone HCl (NARCAN) 4 MG/0.1ML nasal spray as needed 05/13/2021 04/20/2023 NYSTOP 816864 UNIT/GM powder APPLY TO THE AFFECTED AREA [...] on filedocumented in this encounter Care Teams Stone Trimmer Relationship Specialty Start Date End Date Justen Gale MD PCP - General 07/05/21 documented as of this encounter
--- OUTSIDE RECORDS SUMMARY | 2024-04-26 06:54 | XMS_ITS | Encounter Summary ---
Author Organization [facility] Address [address] [place] [address] Care Team Providers Care Barrel Raiser Name Role Phone Justen Gale MD Primary Care Provider [phone] Reason for Visit * Reason Onset Date Comments General 01/05/2023 Encounter Details Date Type Department Care Team (Late st Contact Info) Description 01/05/2023 Telephone [facility] [address] [facility], [place] [address] Angeline Avila, RN General Social [...] hard at all 12/23/2022 [facility] [place] of Occupat ional Health - Occupational [...] slept in a penitentiary (including now)? No 12/23/2022 Sex and Gender [...] on filedocumented in this encounter Care Teams Barrel Raiser Relationship Specialty Start Date End Date Justen Gale MD PCP - General 07/05/21 documented as of this encounter
--- OUTSIDE RECORDS SUMMARY | 2024-04-26 06:54 | XMS_ITS | Encounter Summary ---
Author Organization [facility] Address [address] [facility] [place] [address] Care Team Providers Care Telephone Directory Distributor Driver Name Role Phone Justen Gale MD Primary Care Provider [phone] Reason for Visit * Reason Onset Date Comments General 01/11/2023 Encounter Details Date Type Department Care Team (Late st Contact Info) Description 01/11/2023 Telephone [facility] [address] [facility], [place] [address] nAgeline Avila, RN General Social History Tobacco Use [...] and heating? Not hard at all 12/23/2022 [facility] [place] of Occupat ional Health - Occupational Stress [...] on filedocumented in this encounter Care Teams Telephone Directory Distributor Driver Relationship Specialty Start Date End Date Justen Gale MD PCP - General 07/05/21 documented as of this encounter
--- OUTSIDE RECORDS SUMMARY | 2024-04-26 06:54 | XMS_ITS | Encounter Summary ---
Author Organization [facility] Address [address] [facility] [place] [address] Care Team Providers Care Compliance Auditor Name Role Phone Justen Gale MD Primary Care Provider [phone] Reason for Visit * Reason Comments Establish Care UTI WITH HEMATURIA Encounter Details Date Type Department Care Team (Late st Contact Info) Description 04/27/2022 1:00 PM READING INTERVENTIONIST Office Visit [facility] [address] [place] [address] Opal Orellana, MECHANIC HELPER-GAS GOLF CART REPAIRER [address] [place] [phone] Urinary tract infection with hematuria, site unspecified [...] Comments Blood Pressure 167/95 04/27/2022 12:57 PM READING INTERVENTIONIST Pulse 82 04/27/2022 12:57 PM READING INTERVENTIONIST Temperature 36.3 ??C (97.3 ??F) 04/27/2022 12:[address] Respiratory Rate 18 04/27/2022 12:57 PM READING INTERVENTIONIST Oxygen Saturation 100% 04/27/2022 12:57 PM READING INTERVENTIONIST Inhaled Oxygen Concentration - - Weight 130.2 kg (287 lb) 04/27/2022 12:57 PM READING INTERVENTIONIST Height - - Body Mass Index 54.23 [...] Patient Instructions * Patient Instructions* Opal Orellana, MECHANIC HELPER-GAS GOLF CART REPAIRER - 04/27/2022 2:01 PM READING INTERVENTIONIST -To schedule an appointment please call [phone]. -To reach the [place]'s office please call [phone]. -For any nursing or surgery questions please call [phone]. -FAX: We discussed UTI prevention today that [...] 3 year, or 2 in 6 months Jacobus seem to be the cause of UTI in 30% of all sexually active women Start prevention Start mybetriq 50 mg ING INTERVENTIONIST documented in this encounter Progress Notes * Opal Orellana APRN-CNP - 05/01/2022 11:59 AM CST [facility] Division of Urologic Surgery ITA Jones Date of Visit: 04/27/2022 Patient Name: Karly Marques : 1955 Medical Record: [id number] Contact (home) Age: [age] year old Sex: female Referring Physician: Maxi Gregg MD [address] [place] [address] Chief Complaint: Recurrent uti History of Present [...] HumaLOG KwikPen 100 UNIT/ML pen ??? HYDROcodone-acetaminophen ([place]) 7.5-325 MG tablet Take 1 (one) tablet [...] Findings Committee. J Am Wang Radiol. 2017 Nov;14(8):8096-9641. Laboratory Studies: Office Visit on 04/27/22 URINALYSIS AUTO - POINT OF CARE (AMB) [facility] Result Value Ref Range Glucose UA 1+ Bilirubin UA POCT - Ketones UA POCT - Specific [place] UA 1.025 Blood Urine POCT 1+ pH [...] not cease. ITA Jones 05/01/2022 12:00 PM ING INTERVENTIONIST documented in this encounter Procedure Notes * Brigitte Gee MA - 04/27/2022 1:24 PM CSTAssociated Order(s): PROC BLADDER SCAN Procedure(s): MD MSR PVR U&/BLADD CAPCTY US NON Pre-Procedure Diagnose(s): Urinary tract infection with hematuria, site unspecified Bladder scan completed. 38ml post void residual. ING INTERVENTIONIST documented in this encounter Plan of Treatment Not on file documented as of this encounter Procedures Procedure Name Priority Date/Time Associated Diagnosis Comments MD MSR PVR U&/BLADD CAPCTY US NON Routine 04/27/2022 1:24 PM READING INTERVENTIONIST Urinary tract infection with hematuria, site unspecified URINALYSIS AUTO - POINT OF CARE (AMB) [facility] Routine 04/27/2022 1:12 PM READING INTERVENTIONIST Urinary tract infection with hematuria, site unspecified documented in this encounter Results * MD MSR PVR U&/BLADD CAPCTY US NON (04/27/2022 1:24 PM READING INTERVENTIONIST) Narrative Brigitte Gee MA - 04/27/2022 1:24 PM READING INTERVENTIONIST Brigitte Gee MA ? 04/27/2022 ??1:24 PM Bladder scan completed. 38ml post void residual. Opal JEAN BAPTISTE PROCEDURE/MIN OR SURGICAL ORDERABLES * URINALYSIS AUTO - POINT OF CARE (AMB) [facility] (04/27/2022 1:12 PM READING INTERVENTIONIST) Glucose UA 1+ Bilirubin UA POCT - Ketones UA POCT - Specific [place] UA 1.025 Blood Urine POCT 1+ pH UA 6.0 Protein UA + Urobilinogen UA - Nitrite UA - WBC UA - Urine URINE / Unknown 04/27/2022 1 :12 PM READING INTERVENTIONIST Opal Orellana APRN-GAS GOLF CART REPAIRER LAB - POINT O F CARE ORDERABLES documented in this encounter Visit Diagnoses Diagnosis Urinary tract infection with hematuria, site unspecified- Primary Acute cystitis with hematuria Acute cystitis documented in this encounter Care Teams Compliance Auditor Relationship Specialty Start Date End Date Justen Gale MD PCP - General 07/05/21 documented as of this encounter
--- OUTSIDE RECORDS SUMMARY | 2024-04-26 06:55 | XMS_ITS | Encounter Summary ---
Author Organization [facility] Address [address] [place] [address] Care Team Providers Care Tannery Worker Name Role Phone Justen Gale MD Primary Care Provider [phone] Reason for Referral * Evaluate (Routine) - Closed Specialty Diagnoses / Procedures Referred By Elyssa benavides Referred To Contact ENT-Otolaryngology Diagnoses Throat pain Jazmyne Morel MD [address] [place] [address] [facility] [address] [place] [address] Referral ID Status Reason Start Date Expiration Date V isits Requested Visits Authorized [id number] Closed Specialty Services Required 12/06/2021 12/06/2022 1 1 Reason for Visit * Reason Comments Hospital Follow-up Encounter Details Date Type Department Care Team (Late st Contact Info) Description 12/06/2021 12:30 PM CDT Office Visit [address] [phone] Jazmyne Morel MD [address] [place] [address] Acute hematogenous osteomyelitis, unspecified site [...] MD - 12/06/2021 12:38 PM CDT [facility] Infectious Diseases Progress Note Reason for IDf/u: Infected??battery site of spinal stimulation system Brief History and Hospital Course: Karly Marques??is a??66 year old?female??with??PMH of??T2DM,??HTN, CHF, 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 She presented to [facility] ED??again??on 10/06,??note purulent drainage from incision ,??labs [...] and??aztreonam??were given. She was then transferred to [facility] for??neurosurgery evaluation and management. ?? Upon arrival to [facility], Tmax 99.1, VSS, leukocytosis WBC [...] from yesterday Current Abx:ertapenem Prior Abx at [facility] PRN Medications OBJECTIVE: Vital Signs: BP 143/74 [...] Schedule Ref to ENT Otolaryngology - [facility] Outpatient Referral Routine Throat pain 1 Occurrences [...] ERYTHROCYTE SEDIMENTATION RATE (12/06/2021 1:44 PM CDT) [facility] Erythrocyte Sedimentation Rate Adolfo 59(H) 0 - 30 MM/HR 12/06/2021 6:57 PM CDT [facility] Blood BLOOD SPECIMEN / Unknown Lab Venipuncture / Unknown 12/06/2021 1:44 PM CDT 12/06/2021 6:57 PM CDT Nongnokirsten Morel MD LAB - HEM ATOLOGY ORDERABLES Performing Organization Address City/State/[facility] Co de Phone Number [address] [address], [facility] [phone] * (ABNORMAL) URINALYSIS W/MICROSCOPIC REFLEX TO CULTURE (12/06/2021 1:29 PM CDT) Color UA Yellow Straw, Yellow 12/06/2021 3:05 PM CDT [facility] Clarity UA Clear Clear 12/06/2021 3:05 PM CDT [facility] Specific [place] UA 1.016 1.005 - 1.030 12/06/2021 3:05 PM CDT [facility] pH UA 5.0 5.0 - 8.0 pH 12/06/2021 3:05 PM CDT [facility] Protein UA Negative Negative 12/06/2021 3:05 PM CDT [facility] Glucose UA 1+(A) Negative 12/06/2021 3:05 PM [facility] Ketone UA Negative Negative 12/06/2021 3:05 PM [facility] Bilirubin UA Negative Negative 12/06/2021 3:05 PM [facility] Blood UA 1+(A) Negative 12/06/2021 3:05 PM [facility] Nitrite UA Negative Negative 12/06/2021 3:05 PM [facility] Leukocyte Esterase Negative Negative 12/06/2021 3:05 PM [facility] Urobilinogen UA Negative Negative mg/dL 12/06/2021 3:05 PM [facility] RBC UA 0-2 None Seen, 0-2, 3-5 /HPF 12/06/2021 3:05 PM [facility] WBC UA 0-5 None Seen, 0-5 /HPF 12/06/2021 3:05 PM [facility] Squamous Epithelial Cells UA None Seen None Seen, 0-2, 3-5 /HPF 12/06/2021 3:05 PM [facility] Mucus UA 1+ /LPF 12/06/2021 3:05 PM [facility] Urine URINE SPECIMEN OBTAINED BY CLEAN CATCH PROCEDURE / Unknown Collection / Unknown 12/06/2021 1:29 PM CDT 12/06/2021 2:47 PM CDT Narrative [facility] - 12/06/2021 3:[address] [facility] Culture Not Indicated [place] Melissa DURÁN LAB - URI NALYSIS ORDERABLES Performing Organization Address [facility]/State/[facility] de Phone Number [facility] [address] [place] [address], [facility] [phone] documented in this encounter Visit Diagnoses Diagnosis Acute hematogenous osteomyelitis, unspecified site (HCC)- Primary Throat pain documented in this encounter Care Teams Tannery Worker Relationship Specialty Start Date End Date Justen Gale MD PCP - General 07/05/21 documented as of this encounter
--- OUTSIDE RECORDS SUMMARY | 2024-04-26 06:55 | XMS_ITS | Encounter Summary ---
Author Organization [facility] Address [address] [facility] [place] [address] Care Team Providers Care Digital Sales Assistant Name Role Phone Justen Gale MD Primary Care Provider [phone] Reason for Visit * Reason Onset Date Comments Transitions Of Care 11/22/2021 Encounter Details Date Type Department Care Team (Late st Contact Info) Description 11/22/2021 Telephone [facility] CARE COORDINATION [address] [place] [phone] Bianca Daugherty, RN Transitions Of Care Social [...] RN - 11/22/2021 4:01 PM CDT Transition V Belt Coverer (TCC) post discharge follow-up contact by telephone. [...] Duration: 3 minutes Bianca Daugherty RN Transition V Belt Coverer Office: [phone] 11/22/2021 documented in this encounter Plan of Treatment Not on file documented as of this encounter Visit Diagnoses Not on filedocumented in this encounter Care Teams Digital Sales Assistant Relationship Specialty Start Date End Date Justen Gale MD PCP - General 07/05/21 documented as of this encounter
--- OUTSIDE RECORDS SUMMARY | 2024-04-26 06:55 | XMS_ITS | Encounter Summary ---
Author Organization [facility] Address [address] [place] [address] Care Team Providers Care Medical Billing Associate Name Role Phone Justen Gale MD Primary Care Provider [phone] Reason for Visit * Reason Comments POST-OP PROBLEM BIBself with c/o pos t op problem. Pt states tenderness on R lower back incision and difficulty walking starting yesterday. Encounter Details Date Type Department Care Team (Late st Contact Info) Description 11/22/2021 11:52 PM CDT - 11/22/2021 11:53 PM CDT Emergency [facility] [address] [place] [phone] Procedure and treatment not carried out because [...] nasal spray as needed 05/13/2021 04/20/2023 NYSTOP [id number] UNIT/GM powder APPLY TO THE AFFECTED AREA [...] reasons documented in this encounter Care Teams Medical Billing Associate Relationship Specialty Start Date End Date Justen Gale MD PCP - General 07/05/21 documented as of this encounter
--- OUTSIDE RECORDS SUMMARY | 2024-04-26 06:55 | XMS_ITS | Encounter Summary ---
Author Organization [facility] Address [address] [place] [address] Care Team Providers Care Development Disability Specialist Name Role Phone Justen Gale MD Primary Care Provider [phone] Reason for Visit * Auth/Cert Specialty Diagnoses / Procedures Referred By Elyssa t Referred To Contact Referral ID Status Reason Start Date Expiration Date Visits Re quested Visits Authorized [id number] 1 1 Encounter Details Date Type Department Care Team (Late st Contact Info) Description 10/30/2021 3:53 PM CDT Anesthesia Event [facility] [address] [place] [phone] Andi Choi MD [address] [place] [phone] Melvin Johnston Anes Asst [address] [facility] [place] [address] Anesthesia Record Procedure Summary Procedure Name Responsible [...] Tolerance: Well 10/30/21 0839 by Osito Giles, COMPARATIVE SOCIOLOGY PROFESSOR-ACCOUNTS PAYABLE ADMINISTRATOR 11/05/21 195 by Marimar English RN ETT [...] Bulb; 7MM; BARD; HUBLESS SILICONE FLAT DRAIN; [id number]; [id number]; Right, Lower; Back; Injectable; General Anesthesia; 11/14/21; [...] procedural Anesthetic Plan was discussed with the INVOICE CLERK. BMI, Height, Weight Tobacco History Estimated body [...] THE BATTERY IN THE LOWER LUMBAR REGION TUMBLER PLATER Status: No LMP recorded. Patient is postmenopausal. Postmenopausal OB History No obstetric history on file. Covid Vaccine: Lab Results: Recent Labs Base Name 10/30/21 1448 [id number] 170* SPECIMENTYPE Cap Fingerstick Recent Labs Component [...] procedural Anesthetic Plan was discussed with the INVOICE CLERK. Overall additional findings/comments: C-mac for intubation Modified RSI I have reviewed the chart I have interviewed and examined the patient I agree with the documentation and have discussed the anesthesia plan w/ the Resident, INVOICE CLERK or AA [facility]#[id number]: Documentation of Current Medications in the Medical Record Patient has been marked Ready for Procedure I attest to documenting, updating or reviewing a patient's current medications using all immediate resources available on the date of the encounter. This list must include ALL known prescriptions, [id number], herbals, and vitamin/mineral/dietary (nutritional) supplements AND must contain the medications' name, dosages, frequency and route of administration I discussed risks of anesthesia including, chipped or missing tooth, sore throat, VA, CVA, prolonged mechanical ventilation and . Pt [...] THE BATTERY IN THE LOWER LUMBAR REGION TUMBLER PLATER Status: No LMP recorded. Patient is postmenopausal. Postmenopausal OB History No obstetric history on file. Covid Vaccine: Lab Results: Recent Labs Base Name 10/30/21 1448 [id number] 170* SPECIMENTYPE Cap Fingerstick Recent Labs Component [...] Event Date/Time: 10/30/2021 3:59 PM Procedure: intubation (05978). Procedure Section: Sedation: IV sedation. Indications for [...] 8 HOURS 10/30/21 1701 10/30/21 1128 HYDROcodone-acetaminophen (Lynd) 5-325 MG tablet 1 tablet -- Verified [...] Bulb; 7MM; BARD; HUBLESS SILICONE FLAT DRAIN; [id number]; [id number]; Right, Lower; Back; Injectable; General Anesthesia 10/30/21 [...] Event Date/Time: ??10/30/2021 3:59 PM Procedure: intubation (86012). Procedure Section: ?? Sedation: IV sedation. Indications for Airway Management: ??airway protection Procedure pretreatments used? ??No Induction: rapid sequence and cricoid pressure Patient Position: ??supine Mask Ventilation: not attempted. Blade Type: Video ([facility]) Blade Size: 4 Laryngoscopy View: grade [...] mg documented in this encounter Care Teams Development Disability Specialist Relationship Specialty Start Date End Date Justen Gale MD PCP - General 07/05/21 documented as of this encounter
--- OUTSIDE RECORDS SUMMARY | 2024-04-26 06:55 | XMS_ITS | Encounter Summary ---
Author Organization [facility] Address [address] [facility] [place] [address] Care Team Providers Care Validation Engineer Name Role Phone Justen Gale MD Primary Care Provider [phone] Reason for Visit * Reason Onset Date Comments Transitions Of Care 11/08/2021 Encounter Details Date Type Department Care Team (Late st Contact Info) Description 11/08/2021 Telephone [facility] CARE COORDINATION [address] [place] [phone] Bianca Daugherty, RN Transitions Of Care Social [...] RN - 11/08/2021 1:51 PM CDT Transition Cut Pressman(TCC) 1-2 week post discharge follow-up contact by telephone: Patient with recent IP discharge from [facility] on 11/06/21. TCC attempted to reach Karly Marques today by telephone ([phone]) to complete 1-2 week post discharge follow-up contact. TCC was unable to reach Karly Marques at this time and TCC left voicemessage. TCC encouraged Karlyqueenie Marques in the voice message to call this blurb writer back when available to provide update since last follow-up contact. TCC will await call back from Karly Marques. TCCwill continue to follow Patient for 30 days post-discharge with target end date of transition care program and intervention(s) set for 12/06/21. No immediate follow-up needs are identified pending contact from Karly Marques. Call Duration: 1 minute Bianca Daugherty RN, BSN Transition Cut Pressman Office: [phone] 11/08/2021 documented in this encounter Plan of Treatment Not on file documented as of this encounter Visit Diagnoses Not on filedocumented in this encounter Care Teams Validation Engineer Relationship Specialty Start Date End Date Justen Gale MD PCP - General 07/05/21 documented as of this encounter
--- OUTSIDE RECORDS SUMMARY | 2024-04-26 06:55 | XMS_ITS | Encounter Summary ---
Author Organization [facility] Address [address] [place] [address] Care Team Providers Care Amusement Park Worker Name Role Phone Justen Gale MD Primary Care Provider [phone] Reason for Visit * Reason Comments Shortness of Breath 4 days post discharg e, PICC is painful, new SOB. Was hospitalized for UTI/sepsis. Pain stimulator was colonized and battery pack was surgically removed while inpatient. Picc Specimen Boss painful * Auth/Cert Specialty Diagnoses / Procedures Referred By Contac t Referred To Contact Referral ID Status Reason Start Date Expiration Date Visits Re quested Visits Authorized [id number] 1 1 Encounter Details Date Type Department Care Team (Late st Contact Info) Description 11/11/2021 9:48 PM CDT - 11/16/2021 6:47 PM CDT Hospital Encounter SL 8S ACUTE [address] [place] [address] Roger Snowden MD [address] [facility] DIV [place] [address] Tima Cardenas MD [address] [facility] DIV [place] [address] Aly Perkins III, MD [address] [place] [address] Brian Bravo MD [address] [facility] [address] DIV OF [facility] [place] [address] Mckenzie Johnston MD [address] [place] [address] Internal Medicine Discharge Disposition: Home [...] original note were not included. Karly Marques [id number] 66 year old 1955 Admit date: 11/11/2021 [...] dictated by David Charlton MD, PhD (radiology aide). I, Dr. VI BELL have personally reviewed [...] electronically signed by VI BELL on 11/12/2021 8:59 AM . Discharge Exam: [...] and when to takeeach. * TechLite Pen Landrum 32G X 4 MM Misc Generic drug: [...] HYDROcodone-acetaminophen 7.5-325 MG tablet Commonly known as: [place] oxybutynin 5 MG tablet Commonly known as: Ditropan oxyCODONE (immediate release) 10 MG tablet Commonly known as: Roxicodone Where to Get Your Medications These medications were sent to [facility] - [address] [facility] [address] [address] [facility] [address] ?? B-D ULTRAFINE III SHORT PEN 31G X 8 MM needle ?? HumaLOG KwikPen 100 UNIT/ML pen ?? Lantus SoloStar pen ?? oxyCODONE-acetaminophen 10-325 MG tablet ?? TechLite Pen Landrum 32G X 4 MM Misc You can get these medications from any pharmacy You don't need a prescription for these medications ?? acetaminophen 500 MG tablet Contact information for after-discharge [facility] . Service: Home Health Services Contact information: [place] [address] [facility] . Service: Home Health Services Contact information: [address] [facility] [address] Discharge Instructions During your [...] nasal spray as needed 05/13/2021 04/20/2023 NYSTOP [id number] UNIT/GM powder APPLY TO THE AFFECTED AREA [...] questions, please contact the outpatient pharmacy at [phone]. Jaziel Navarro CPhT [facility] at [address], First Floor [place], [place] [address] Hours of Operation Monday - Monday: 8:00am to 6:00pm Monday: 9:00am to 1:00pm Epic: [facility] *Ensure the patient and clinic's nearby ZIP codes box is unchecked* * Dannielle Rivera RN - 11/16/2021 2:59 PM CDT Case management continues to follow for needs at discharge. Patient to have mid line placed and discharge to home. Family will pick patient up at discharge. [facility] notified of patient discharge.[facility] notified of discharge for stat of care on Monday. Per patient she has supplies and antibiotics at home. Patient aware of [facility] and [facility] Contact numbers. No further CM needs at this time. Dannielle Rivera RN 11/16/2021 3:03 PM [phone] * Dannielle Villafuerte PT - 11/16/2021 11:10 AM CDT [facility] PhysicalTherapy Progress Note Patient: Karly Marques Med Record Number: [id number] Date of : 1955 Age: [age] year [...] stand by assist and appropriate AD ?? Parking Lot Attendant And Cashier Goal(s): Patient to be independent with functional [...] Johnston MD - 11/15/2021 4:10 PM CDT [facility] Medicine Progress Note Karly Marques is [...] Disposition:Inpatient for ongoing care Mckenzie Johnston MD [facility] Medicine 11/15/2021 * Jo Andres, PT - 11/15/2021 3:11 PM CDT [facility] Department of Physical Medicine & Rehabilitation Progress Note Patient: Karly Marques Med Record Number: [id number] Date of : 1955 Age: [age] year [...] is currently active with [facility] and [facility]. Updates sent to [facility] and [facility]. Patient has structural steel worker services in placeat this time. Prior Level of Functioning: Patient lives with her daughter in a single family home. Patient is able to care for herself with the assistance of her daughter who is her structural steel worker. Patient uses a walker and wheelchair at baseline. Lives with: Daughter Basic Needs Assessment (BNA) Score: 14 Readmission: No Met with patient Discharge Goals and Plans: Verify Family Support (name and phone): Extended Emergency Contact Information Primary Emergency Contact: Jimmie Marques Address: [address] [place] [address] [place] [address] Relation: Spouse Secondary Emergency Contact: Yunior Velez Mobile Relation: Daughter Patient or delivery representative requests care coordination reach out to [...] Food Bank Resources Provided: Yes - recieved Cannon Pinion Adjuster Referral: No If patient requires HHC at discharge, he/she requests: Patient is active with [facility]. Updates sentto [facility]. Patient is active with [facility] and updates sent. Will continue to follow. For any questions or needs please contact: Pharmaceutical Plant Operator Name/Phone number: Dannielle Rivera RN [phone] * Lexi Santa COTA - 11/15/2021 11:00 AM CDT [facility] Occupational Therapy Progress Note Patient: Karly Marques Med Record Number: [id number] Date of : 1955 Age: [age] year [...] with fair+ endurance and with minimal pain Nursing Home Goal:Patient to be independent/baseline with functional mobility [...] III, MD - 11/14/2021 9:36 AM CDT [facility] General Medicine Team Daily Progress Note 11/14/2021 9:37 AM Name: Karly Marques (66 year old female) : 1955 Room: [facility] Day: 2 66 year old female with pmh breast cancer s/p mastectomy, recurrent PE/DVT, DM 2, RLS with chronic back pain s/p T8-9 laminectomy with spinal stimulator placement in August and now s/p recent hospitalization for 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, who presented to [facility] on 11/12/2021 with right arm pain and [...] allow for safe mobility Outcome: Progressing * Krery Anaya RN - 11/13/2021 6:21 PM CDT [...] Andres, PT - 11/13/2021 3:52 PM CDT [facility] Physical Therapy Initial Evaluation Note Patient: Karly Marques Med Record Number: [id number] Date of : 1955 Age: [age] year [...] home now Who assists you at home?: Transportation Manager;Friends/Family How often is assistance provided?: 14/11 Level [...] with stand by assist and appropriate AD Parking Lot Attendant And Cashier Goal(s): Patient to be independent with functional [...] Womack OT - 11/13/2021 11:08 AM CDT [facility] Occupational Therapy Initial Evaluation Note Patient: Karly Marques Med Record Number: [id number] Date of : 1955 Age: [age] year [...] home now Who assists you at home?: Transportation Manager;Friends/Family How often is assistance provided?: 14/11 Level [...] with fair+ endurance and with minimal pain Parking Lot Attendant And Cashier Goal(s): Patient to be independent with functional [...] III, MD - 11/13/2021 8:53 AM CDT [facility] General Medicine Team Daily Progress Note 11/13/2021 8:53 AM Name: Karly Marques (66 year old female) : 1955 Room: [facility] Day: 1 66 year old female with pmh breast cancer s/p mastectomy, recurrent PE/DVT, DM 2, RLS with chronic back pain s/p T8-9 laminectomy with spinal stimulator placement in August and now s/p recent hospitalization for 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, who presented to [facility] on 11/12/2021 with right arm pain and [...] Ervin, PT - 11/12/2021 3:10 PM CDT [facility] Department of Physical Medicine & Rehabilitation Progress Note Patient: Karly Marques Med Record Number: [id number] Date of : 1955 Age: [age] year [...] (1,000 mL Intravenous $ New Bag 11/11/21 4630) ondansetron (Zofran) injection 4 mg (4 mg [...] @ 2239 Rate: 102 bmp Rhythm: sinus Gallaway: upright Intervals: SC, QRS, QTc not prolonged ST: No ST [...] dictated by David Charlton MD, PhD (radiology aide). I, Dr. VI BELL have personally reviewed [...] (1,800 Units/hr Intravenous $ New Bag 11/12/21 6919) heparin 100 units/mL bolus from bag (has [...] and medical decision making; and I had [id number] time with this patient. * Hannah Franklin RN - 11/11/2021 9:48 PM CDT Bed: AC30 Expected date: Expected time: Means of arrival: Comments: Shelli * Deirdre Duran - 11/11/2021 6:29 PM CDT Unsuccessful blood draw * Bianca Ba - 11/11/2021 6:15 PM CDT Pt waiting, watching tv. * Rosie Hutner - 11/11/2021 4:03 PM CDT Pt in wheelchair for triage Avila hair, black tank top, black&white patterned pants documented in this encounter Miscellaneous Notes * Coding Query - Mckenzie Johnston MD - 11/16/2021 6:47 PM CDT DOCUMENTATION CLARIFICATION REQUEST TO: Dr. Johnston FROM: Janelle ALVA, RN, CDS Email: [email or web address] Please clarify and document if the patient [...] Johnston FROM: Janelle ALVA, RN, CDS Email: [email or web address] Due to the documentation of acute pulmonary [...] - 115 mg/dL 11/16/2021 4:37 PM CDT [facility] Specimen Type Cap Fingerstick 2021 4:37 PM CDT [facility] Blood BLOOD SPECIMEN / Unknown 11/16/2021 4:35 PM CDT 11/16/2021 4:36 PM CDT Mckenzie Johnston MD LAB - POINT OF CAR E ORDERABLES [facility] [address] [place] [address] [phone] * (ABNORMAL) URINALYSIS REFLEX TO MICROSCOPIC NO CULTURE (11/16/2021 2:38 PM CDT) Color UA Yellow Straw, Yellow 11/16/2021 2:52 PM [facility] Clarity UA Clear Clear 11/16/2021 2:52 PM T [facility] Specific Dickinson UA 1.011 1.005 - 1.030 11/16/2021 2:52 PM [facility] pH UA 6.0 5.0 - 8.0 pH 11/16/2021 2:52 PM [facility] Protein UA Negative Negative 11/16/2021 2:52 PM [facility] Glucose UA Negative Negative 11/16/2021 2:52 PM [facility] Ketone UA Negative Negative 11/16/2021 2:52 PM [facility] Bilirubin UA Negative Negative 11/16/2021 2:52 PM [facility] Blood UA 1+(A) Negative 11/16/2021 2:52 PM [facility] Nitrite UA Negative Negative 11/16/2021 2:52 PM [facility] Leukocyte Esterase Negative Negative 11/16/2021 2:52 PM [facility] Urobilinogen UA Negative Negative mg/dL 11/16/2021 2:52 PM [facility] RBC UA 3-5 None Seen, 0-2, 3-5 /HPF 11/16/2021 2:52 PM [facility] WBC UA 0-5 None Seen, 0-5 /HPF 11/16/2021 2:52 PM [facility] Squamous Epithelial Cells UA None Seen None Seen, 0-2, 3-5 /HPF 11/16/2021 2:52 PM [facility] Urine URINE SPECIMEN OBTAINED BY CLEAN CATCH PROCEDURE / Unknown Collection / Unknown 11/16/2021 2:38 PM CDT 11/16/2021 2:42 PM CDT [facility] - 11/16/2021 2:52 PM CDT Mckenzie Johnston MD LAB - URINALYSIS O RDERABLES Performing Organization Address City/[facility]/ZIP Co de Phone Number [facility] [address] [place] [address], [facility] [phone] * (ABNORMAL) GLUCOSE - POINT OF CARE (11/16/2021 11:57 AM CDT) Pathologist [facility] Glucose WB/POC 159(H) 70 - 115 mg/dL 11/16/2021 11:59 AM CDT [facility] Specimen Type Cap Fingerstick 2021 11:59 AM CDT [facility] Blood BLOOD SPECIMEN / Unknown 11/16/2021 11:57 AM CDT 11/16/2021 11:59 AM CDT Mckenzie Johnston MD LAB - POINT OF CAR E ORDERABLES Performing Organization Address [facility]/ZIP Co de Phone Number [address] [address], [facility] [phone] * (ABNORMAL) CBC W/O DIFFERENTIAL (11/16/2021 11:26 AM CDT) [facility] WBC 8.1 3.5 - 10.5 10? 3 /uL 11/16/2021 12:50 PM [facility] RBC 4.09 3.80 - 5.20 10? 6 /uL 11/16/2021 12:50 PM [facility] Hemoglobin 11.8(L) 12.0 - 15.6 g/dL 11/16/2021 12:50 PM [facility] Hematocrit 37.7 35.0 - 45.0 % 11/16/2021 12:50 PM [facility] MCV 92.2 80.7 - 98.3 fL 11/16/2021 12:50 PM T [facility] MCH 28.9 26.7 - 34.0 pg 11/16/2021 12:50 PM [facility] MCHC 31.3 30.8 - 35.9 g/dL 11/16/2021 12:50 PM [facility] Platelet Count 316 150 - 400 10? 3 /uL 11/16/2021 12:50 PM [facility] RDW-SD 44.5 36.0 - 50.0 fL 11/16/2021 12:50 PM [facility] RDW-CV 13.2 11.2 - 14.8 % 11/16/2021 12:50 PM [facility] MPV 9.8 9.4 - 12.9 fL 11/16/2021 12:50 PM [facility] nRBC Absolute 0.00 0 10? 3 /uL 11/16/2021 12:50 PM [facility] nRBC Auto 0.0 0 /100 WBC 11/16/2021 12:50 PM [facility] Blood BLOOD SPECIMEN / Unknown Lab Venipuncture / Unknown 11/16/2021 11:26 AM CDT 11/16/2021 12:42 PM CDT Mckenzie Johnston MD LAB - HEMATOLOGY O RDERABLES Performing Organization Address [facility] Co de Phone Number [address] [address] [phone] * (ABNORMAL) COMPREHENSIVE METABOLIC PANEL (11/16/2021 11:26 AM CDT) BUN 13 7 - 26 mg/dL 11/16/2021 1:12 PM [facility] Creatinine 0.70 0.56 - 0.96 mg/dL 11/16/2021 1:12 PM [facility] Sodium 136 136 - 145 mmol/L 11/16/2021 1:12 PM [facility] Potassium 4.1 3.5 - 4.5 mmol/L 11/16/2021 1:12 PM [facility] Chloride 100 98 - 107 mmol/L 11/16/2021 1:12 PM [facility] CO2 24 22 - 29 mmol/L 11/16/2021 1:12 PM [facility] Glucose 182(H) 70 - 115 mg/dL 11/16/2021 1:12 PM [facility] Calcium 9.9 8.4 - 10.2 mg/dL 11/16/2021 1:12 PM [facility] Protein Total 7.9 6.0 - 8.3 g/dL 11/16/2021 1:12 PM [facility] Albumin 3.0(L) 3.4 - 5.0 g/dL 11/16/2021 1:12 PM [facility] Bilirubin Total 0.4 0.2 - 1.2 mg/dL 11/16/2021 1:12 PM [facility] Alkaline Phosphatase 77 40 - 150 U/L 11/16/2021 1:12 PM [facility] ALT 15 5 - 55 U/L 11/16/2021 1:12 PM [facility] AST 16 5 - 34 U/L 11/16/2021 1:12 PM [facility] Anion Gap 16 8 - 18 11/16/2021 1:12 PM [facility] BUN/Creatinine Ratio 19 7 - 23 11/16/2021 1:12 PM [facility] Osmolality Calculated 287 270 - 300 mOsm/kg 11/16/2021 1:12 PM [facility] Albumin/Globulin Ratio 0.6(L) 1.1 - 2.3 11/16/2021 1:12 PM [facility] eGFR by CKD-EPI >90 >=90 mL/min/1.7 3 m2 11/16/2021 1:12 PM [facility] Blood BLOOD SPECIMEN / Unknown Lab Venipuncture / Unknown 11/16/2021 11:26 AM CDT 11/16/2021 12:42 PM T Mckenzie Johnston MD LAB - CHEMISTRY OR DERABLES [facility] [address] [place] [address], [facility] [phone] * (ABNORMAL) C-REACTIVE PROTEIN (11/16/2021 11:26 AM CDT) C-Reactive Protein 1.8(H) <=0.5 mg/dL 11/16/2021 1:01 PM [facility] Blood BLOOD SPECIMEN / Unknown Lab Venipuncture / Unknown 11/16/2021 11:26 AM CDT 11/16/2021 12:41 PM CDT Mckenzie Johnston MD LAB - CHEMISTRY OR DERABLES Performing Organization Address City/[facility]/ZIP Co de Phone Number [address] [address], [place] [phone] * (ABNORMAL) ERYTHROCYTE SEDIMENTATION RATE (11/16/2021 11:26 AM CDT) Erythrocyte Sedimentation Rate Westergren 97(H) 0 - 30 MM/HR 11/16/2021 12:58 PM CDT [facility] Blood BLOOD SPECIMEN / Unknown Lab Venipuncture / Unknown 11/16/2021 11:26 AM CDT 11/16/2021 12:42 PM CDT Mckenzie Johnston MD LAB - HEMATOLOGY O RDERABLES Performing Organization Address [facility]/ZIP Co de Phone Number [address] [address], [place] [phone] * (ABNORMAL) GLUCOSE - POINT OF CARE (11/16/2021 8:00 AM CDT) Glucose WB/POC 170(H) 70 - 115 mg/dL 11/16/2021 8:02 AM CDT [facility] Specimen Type Cap Fingerstick 2021 8:02 AM CDT [facility] Blood BLOOD SPECIMEN / Unknown 11/16/2021 8:00 AM CDT 11/16/2021 8:02 AM CDT Mckenzie Johnston MD LAB - POINT OF CAR E ORDERABLES Performing Organization Address [facility]/ZIP Co de Phone Number [address] [address], [place] [phone] * (ABNORMAL) GLUCOSE - POINT OF CARE (11/15/2021 9:46 PM CDT) Glucose WB/POC 197(H) 70 - 115 mg/dL 11/15/2021 9:51 PM CDT [facility] Specimen Type Cap Fingerstick 2021 9:51 PM CDT [facility] Blood BLOOD SPECIMEN / Unknown 11/15/2021 9:46 PM CDT 11/15/2021 9:51 PM CDT Mckenzie Johnston MD LAB - POINT OF CAR E ORDERABLES Performing Organization Address City/[facility]/ZIP Co de Phone Number [address] [address], [place] [phone] * (ABNORMAL) GLUCOSE - POINT OF CARE (11/15/2021 4:34 PM CDT) Glucose WB/POC 165(H) 70 - 115 mg/dL 11/15/2021 4:39 PM CDT [facility] Specimen Type Cap Fingerstick 2021 4:39 PM CDT [facility] Blood BLOOD SPECIMEN / Unknown 11/15/2021 4:34 PM CDT 11/15/2021 4:38 PM CDT Mckenzie Johnston MD LAB - POINT OF CAR E ORDERABLES Performing Organization Address [facility] Co de Phone Number [address] [address], [place] [phone] * (ABNORMAL) GLUCOSE - POINT OF CARE (11/15/2021 12:11 PM CDT) Glucose WB/POC 172(H) 70 - 115 mg/dL 11/15/2021 12:16 PM CDT [facility] Specimen Type Cap Fingerstick 2021 12:16 PM CDT [facility] Blood BLOOD SPECIMEN / Unknown 11/15/2021 12:11 PM CDT 11/15/2021 12:16 PM CDT Mckenzie Johnston MD LAB - POINT OF CAR E ORDERABLES [facility] [address] [place] [address], [place] [phone] * (ABNORMAL) GLUCOSE - POINT OF CARE (11/15/2021 8:27 AM CDT) Glucose WB/POC 172(H) 70 - 115 mg/dL 11/15/2021 8:31 AM CDT [facility] Specimen Type Cap Fingerstick 2021 8:31 AM CDT [facility] Blood BLOOD SPECIMEN / Unknown 11/15/2021 8:27 AM CDT 11/15/2021 8:31 AM CDT Mckenzie Johnston MD LAB - POINT OF CAR E ORDERABLES [address] [address], [place] [phone] * (ABNORMAL) GLUCOSE - POINT OF CARE (11/14/2021 8:15 PM CDT) Glucose WB/POC 138(H) 70 - 115 mg/dL 11/14/2021 8:22 PM CDT [facility] Specimen Type Cap Fingerstick 2021 8:22 PM CDT [facility] Blood BLOOD SPECIMEN / Unknown 11/14/2021 8:15 PM CDT 11/14/2021 8:22 PM CDT Aly Perkins III, MD LAB - POINT OF CA RE ORDERABLES [facility] [address] [place] [address], [place] [phone] * (ABNORMAL) GLUCOSE - POINT OF CARE (11/14/2021 6:17 PM CDT) Glucose WB/POC 164(H) 70 - 115 mg/dL 11/14/2021 6:21 PM CDT [facility] Specimen Type Cap Fingerstick 2021 6:21 PM CDT [facility] Blood BLOOD SPECIMEN / Unknown 11/14/2021 6:17 PM CDT 11/14/2021 6:21 PM CDT Aly Perkins III, MD LAB - POINT OF [place] RE ORDERABLES [facility] [address] [place] [address], [place] [phone] * (ABNORMAL) GLUCOSE - POINT OF CARE (11/14/2021 11:54 AM CDT) Glucose WB/POC 183(H) 70 - 115 mg/dL 11/14/2021 11:58 AM CDT [facility] Specimen Type Cap Fingerstick 2021 11:58 AM CDT [facility] Blood BLOOD SPECIMEN / Unknown 11/14/2021 11:54 AM CDT 11/14/2021 11:58 AM CDT Aly Perkins III, MD LAB - POINT OF [place] RE ORDERABLES Performing Organization Address City/[facility]/ZIP Co de Phone Number [address] [address], [place] [phone] * (ABNORMAL) GLUCOSE - POINT OF CARE (11/14/2021 8:34 AM CDT) Glucose WB/POC 162(H) 70 - 115 mg/dL 11/14/2021 8:39 AM CDT [facility] Specimen Type Cap Fingerstick 2021 8:39 AM CDT [facility] Blood BLOOD SPECIMEN / Unknown 11/14/2021 8:34 AM CDT 11/14/2021 8:39 AM CDT Aly Perkins III, MD LAB - POINT OF [place] RE ORDERABLES [address] [address], [place] [phone] * (ABNORMAL) GLUCOSE - POINT OF CARE (11/14/2021 1:55 AM CDT) Glucose WB/POC 194(H) 70 - 115 mg/dL 11/14/2021 2:00 AM CDT [facility] Specimen Type Cap Fingerstick 2021 2:00 AM CDT [facility] Blood BLOOD SPECIMEN / Unknown 11/14/2021 1:55 AM CDT 11/14/2021 2:00 AM CDT Aly Perkins III, MD LAB - POINT [facility] RE ORDERABLES Performing Organization Address City/[facility]/ZIP Co de Phone Number [address] [address], [place] [phone] * (ABNORMAL) GLUCOSE - POINT OF CARE (11/13/2021 8:15 PM CDT) Glucose WB/POC 231(H) 70 - 115 mg/dL 11/13/2021 8:20 PM CDT [facility] Specimen Type Cap Fingerstick 2021 8:20 PM CDT [facility] Blood BLOOD SPECIMEN / Unknown 11/13/2021 8:15 PM CDT 11/13/2021 8:20 PM CDT Aly Perkins III, MD LAB - POINT OF [place] RE ORDERABLES Performing Organization Address [facility]/ZIP Co de Phone Number [address] [address], [place] [phone] * (ABNORMAL) GLUCOSE - POINT OF CARE (11/13/2021 5:17 PM CDT) Glucose WB/POC 209(H) 70 - 115 mg/dL 11/13/2021 5:19 PM CDT [facility] Specimen Type Cap Fingerstick 2021 5:19 PM CDT [facility] Blood BLOOD SPECIMEN / Unknown 11/13/2021 5:17 PM CDT 11/13/2021 5:19 PM CDT Aly Perkins III, MD LAB - POINT OF [place] RE ORDERABLES [address] [address], [place] [phone] * (ABNORMAL) GLUCOSE - POINT OF CARE (11/13/2021 12:15 PM CDT) Glucose WB/POC 178(H) 70 - 115 mg/dL 11/13/2021 12:19 PM CDT [facility] Specimen Type Cap Fingerstick 2021 12:19 PM CDT [facility] Blood BLOOD SPECIMEN / Unknown 11/13/2021 12:15 PM CDT 11/13/2021 12:19 PM CDT Aly Perkins III, MD LAB - POINT OF [place] RE ORDERABLES Performing Organization Address City/[facility]/ZIP Co de Phone Number [address] [address], [facility] [phone] * (ABNORMAL) GLUCOSE - POINT OF CARE (11/13/2021 8:49 AM CDT) Glucose WB/POC 168(H) 70 - 115 mg/dL 11/13/2021 8:53 AM CDT [facility] Specimen Type Cap Fingerstick 2021 8:53 AM CDT [facility] Blood BLOOD SPECIMEN / Unknown 11/13/2021 8:49 AM CDT 11/13/2021 8:53 AM CDT Aly Perkins III, MD LAB - POINT OF [place] RE ORDERABLES [address] [address], [place] [phone] * (ABNORMAL) BASIC METABOLIC PANEL (CALCIUM TOTAL) (11/13/2021 6:58 AM CDT) BUN 13 7 - 26 mg/dL 11/13/2021 7:29 AM CDT [facility] Creatinine 0.66 0.56 - 0.96 mg/dL 11/13/2021 7:29 AM [facility] Sodium 138 136 - 145 mmol/L 11/13/2021 7:29 AM [facility] Potassium 4.1 3.5 - 4.5 mmol/L 11/13/2021 7:29 AM [facility] Chloride 102 98 - 107 mmol/L 11/13/2021 7:29 AM [facility] CO2 28 22 - 29 mmol/L 11/13/2021 7:29 AM [facility] Glucose 155(H) 70 - 115 mg/dL 11/13/2021 7:29 AM [facility] Calcium 9.1 8.4 - 10.2 mg/dL 11/13/2021 7:29 AM [facility] Anion Gap 12 8 - 18 11/13/2021 7:29 AM [facility] BUN/Creatinine Ratio 20 7 - 23 11/13/2021 7:29 AM [facility] Osmolality Calculated 289 270 - 300 mOsm/kg 11/13/2021 7:29 AM [facility] eGFR by CKD-EPI >90 >=90 mL/min/1.7 3 m2 11/13/2021 7:29 AM [facility] Blood BLOOD SPECIMEN / Unknown Lab Venipuncture / Unknown 11/13/2021 6:58 AM CDT 11/13/2021 6:58 AM T Aly Perkins III, MD LAB - CHEMISTRY O RDERABLES Performing Organization Address [facility]/State/[facility] Co de Phone Number [facility] [address] [place] [address], [facility] [phone] * (ABNORMAL) PTT [facility] (11/13/2021 1:07 AM CDT) APTT 77.2(H) 23.0 - 38.4 Seconds 11/13/2021 1:33 AM [facility] Comment:Suggested therapeuti c range for full dose I.V. unfractionated heparin therapy for venous thromboembolism is 71 to 109 seconds. Blood BLOOD SPECIMEN / Unknown Venipuncture / Unknown 11/13/2021 1:07 AM CDT 11/13/2021 1:11 AM CDT Tima Cardenas MD LAB - COAGULATI ON ORDERABLES Performing Organization Address City/[facility]/ZIP Co de Phone Number [facility] [address] [place] [address], [facility] [phone] * (ABNORMAL) PT-INR [facility] (11/13/2021 1:07 AM CDT) PT 15.2(H) 12.1 - 14.8 Seconds 11/13/2021 1:31 AM CDT [facility] INR 1.2 See Comment 11/13/2021 1:31 AM T [facility] Comment:The suggested therap eutic range for standard coumadin (warfarin) therapy is an INR of 2.0-3.0. For high-risk patients (Mechanical Mitral Valve Prosthesis, etc.), the suggested prophylactic therapeutic range is an INR of 2.5-3.5. Blood BLOOD SPECIMEN / Unknown Venipuncture / Unknown 11/13/2021 1:07 AM CDT 11/13/2021 1:11 AM CDT Tima Cardenas MD LAB - COAGULATI ON ORDERABLES Performing Organization Address City/[facility]/ZIP Co de Phone Number [facility] [address] [place] [address], [facility] [phone] * (ABNORMAL) CBC W AUTO DIFFERENTIAL (11/13/2021 1:07 AM CDT) WBC 9.0 3.5 - 10.5 10? 3 /uL 11/13/2021 1:25 AM CDT [facility] RBC 3.87 3.80 - 5.20 10? 6 /uL 11/13/2021 1:25 AM CDT [facility] Hemoglobin 11.3(L) 12.0 - 15.6 g/dL 11/13/2021 1:25 AM T [facility] Hematocrit 35.4 35.0 - 45.0 % 11/13/2021 1:25 AM [facility] MCV 91.5 80.7 - 98.3 fL 11/13/2021 1:25 AM [facility] MCH 29.2 26.7 - 34.0 pg 11/13/2021 1:25 AM [facility] MCHC 31.9 30.8 - 35.9 g/dL 11/13/2021 1:25 AM [facility] Platelet Count 289 150 - 400 10? 3 /uL 11/13/2021 1:25 AM [facility] RDW-SD 46.1 36.0 - 50.0 fL 11/13/2021 1:25 AM [facility] RDW-CV 13.5 11.2 - 14.8 % 11/13/2021 1:25 AM [facility] MPV 10.0 9.4 - 12.9 fL 11/13/2021 1:25 AM [facility] nRBC Absolute 0.00 0 10? 3 /uL 11/13/2021 1:25 AM [facility] nRBC Auto 0.0 0 /100 WBC 11/13/2021 1:25 AM [facility] Neutrophils % 51.0 35.0 - 70.0 % 11/13/2021 1:25 AM [facility] Lymphocytes % 33.3 20.0 - 43.0 % 11/13/2021 1:25 AM [facility] Monocytes % 8.5 5.0 - 13.0 % 11/13/2021 1:25 AM [facility] Eosinophils % 6.1(H) 0.0 - 6.0 % 11/13/2021 1:25 AM [facility] Basophil % 0.7 0.0 - 2.0 % 11/13/2021 1:25 AM [facility] Neutrophils Absolute 4.59 1.60 - 7.00 10? 3 /uL 11/13/2021 1:25 AM [facility] Lymphocyte Absolute 3.00 1.10 - 3.90 10? 3 /uL 11/13/2021 1:25 AM [facility] Monocytes Absolute 0.77 0.26 - 1.07 10? 3 /uL 11/13/2021 1:25 AM CDT [facility] Eosinophils Absolute 0.55(H) 0.00 - 0.47 10? 3 /uL 11/13/2021 1:25 AM CDT [facility] Basophils Absolute 0.06 0.00 - 0.08 10? 3 /uL 11/13/2021 1:25 AM CDT [facility] Immature Granulocytes % 0.4 0.0 - 1.0 % 11/13/2021 1:25 AM CDT [facility] Immature Granulocytes Absolute 0.04 11/13/2021 1:25 AM CDT [facility] Blood BLOOD SPECIMEN / Unknown Venipuncture / Unknown 11/13/2021 1:07 AM CDT 11/13/2021 1:11 AM CDT Tima Cardenas MD LAB - HEMATOLOG Y ORDERABLES Performing Organization Address City/[facility]/ZIP Co de Phone Number [address] [address], [facility] [phone] * (ABNORMAL) PTT [facility] (11/12/2021 6:23 PM CDT) APTT 70.9(H) 23.0 - 38.4 Seconds 11/12/2021 6:55 PM CDT [facility] Comment:Suggested therapeuti c range for full dose I.V. unfractionated heparin therapy for venous thromboembolism is 71 to 109 seconds. Blood BLOOD SPECIMEN / Unknown Lab Venipuncture / Unknown 11/12/2021 6:23 PM CDT 11/12/2021 6:31 PM CDT Aly Perkins III, MD LAB - COAGULATION ORDERABLES Performing Organization Address City/[facility]/ZIP Co de Phone Number [address] [address], [place] [phone] * (ABNORMAL) GLUCOSE - POINT OF CARE (11/12/2021 6:10 PM CDT) Glucose WB/POC 168(H) 70 - 115 mg/dL 11/12/2021 6:11 PM CDT [facility] Specimen Type Cap Fingerstick 2021 6:11 PM CDT [facility] Blood BLOOD SPECIMEN / Unknown 11/12/2021 6:10 PM CDT 11/12/2021 6:11 PM CDT Provider Unknown LAB - POINT OF CARE ORDERABLES Performing Organization Address City/[facility]/ZIP Co de Phone Number [facility] [address] [place] [address], [place] [phone] * ECHO COMPLETE (11/12/2021 4:10 PM CDT) Anatomical Region Laterality Modality Chest Echo 11/12/2021 3:25 PM CDT Narrative Procedure Note Tamika Cowan MD - 11/12/2021 Aly Perkins III, MD ECHOCARDIOGRAPHY RADIANT * (ABNORMAL) GLUCOSE - POINT OF CARE (11/12/2021 1:24 PM CDT) Glucose WB/POC 162(H) 70 - 115 mg/dL 11/12/2021 1:28 PM CDT [facility] Specimen Type Cap Fingerstick 2021 1:28 PM CDT [facility] Blood BLOOD SPECIMEN / Unknown 11/12/2021 1:24 PM CDT 11/12/2021 1:28 PM CDT Aly Perkins III, MD LAB - POINT OF CA RE ORDERABLES [facility] [address] [place] [address], [place] [phone] * (ABNORMAL) PTT [facility] (11/12/2021 12:33 PM CDT) APTT 118.9(HH) 23.0 - 38.4 Seconds 11/12/2021 1:05 PM CDT [facility] Comment:Suggested therapeuti c range for full dose I.V. unfractionated heparin therapy for venous thromboembolism is 71 to 109 seconds. Blood BLOOD SPECIMEN / Unknown Venipuncture / Unknown 11/12/2021 12:33 PM CDT 11/12/2021 12:41 PM CDT Epi Solitario MD LAB - COAGULATION OR DERABLES Performing Organization Address [facility] Co de Phone Number [facility] [address] [place] [address], [facility] [phone] * (ABNORMAL) PROCALCITONIN LEVEL (11/12/2021 12:33 PM CDT) PROCALCITONIN 0.20(H) <=0.10 ng/mL 11/12/2021 3:30 PM CDT [facility] Blood BLOOD SPECIMEN / Unknown Venipuncture / Unknown 11/12/2021 12:33 PM CDT 11/12/2021 12:42 PM CDT Narrative [facility] - 11/12/2021 3:30 PM CDT The [...] Change in Procalcitonin Calculator is available at [email or web address] ?? If clinical picture has not improved and PCT remains high, reevaluate and consider treatment failure or other causes. Aly Perkins III, MD LAB - CHEMISTRY O RDERABLES Performing Organization Address [facility] Co de Phone Number [facility] [address] [place] [address], [place] [phone] * VAS RIGHT VENOUS DUPLEX UE (11/12/2021 10:11 AM CDT) Anatomical Region Laterality Modality Upper Extremity Intravascular Ul trasound 11/12/2021 9:37 AM CDT Narrative Procedure Note Justen Ba MD - 11/13/2021 Roger Snowden MD VASCULAR LAB ORDERAB LES * (ABNORMAL) GLUCOSE - POINT OF CARE (11/12/2021 8:23 AM CDT) Glucose WB/POC 132(H) 70 - 115 mg/dL 11/12/2021 8:25 AM CDT [facility] Specimen Type Cap Fingerstick 2021 8:25 AM CDT [facility] Blood BLOOD SPECIMEN / Unknown 11/12/2021 8:23 AM CDT 11/12/2021 8:25 AM CDT Aly Perkins III, MD LAB - POINT OF CA RE ORDERABLES Performing Organization Address [facility]/ZIP Co de Phone Number [facility] [address] [place] [address], [place] [phone] * (ABNORMAL) PT-INR [facility] (11/12/2021 3:36 AM CDT) PT 18.4(H) 12.1 - 14.8 Seconds 11/12/2021 4:02 AM CDT [facility] INR 1.6 See Comment 11/12/2021 4:02 AM CDT [facility] Comment:The suggested therap eutic range for standard coumadin (warfarin) therapy is an INR of 2.0-3.0. For high-risk patients (Mechanical Mitral Valve Prosthesis, etc.), the suggested prophylactic therapeutic range is an INR of 2.5-3.5. Blood BLOOD SPECIMEN / Unknown Venipuncture / Unknown 11/12/2021 3:36 AM CDT 11/12/2021 3:42 AM CDT Tima Cardenas MD LAB - COAGULATI ON ORDERABLES Performing Organization Address [facility]/ZIP Co de Phone Number [address] [address], [facility] [phone] * PTT [facility] (11/12/2021 3:36 AM CDT) APTT 32.0 23.0 - 38.4 Seconds 11/12/2021 4:02 AM T [facility] Comment:Suggested therapeuti c range for full dose I.V. unfractionated heparin therapy for venous thromboembolism is 71 to 109 seconds. Blood BLOOD SPECIMEN / Unknown Venipuncture / Unknown 11/12/2021 3:36 AM CDT 11/12/2021 3:42 AM CDT Tima Cardenas MD LAB - COAGULATI ON ORDERABLES Performing Organization Address City/[facility]/ZIP Co de Phone Number [facility] [address] [place] [address], [facility] [phone] * (ABNORMAL) CBC W AUTO DIFFERENTIAL (11/12/2021 3:36 AM CDT) WBC 11.1(H) 3.5 - 10.5 10? 3 /uL 11/12/2021 4:04 AM CDT [facility] RBC 4.08 3.80 - 5.20 10? 6 /uL 11/12/2021 4:04 AM CDT [facility] Hemoglobin 11.8(L) 12.0 - 15.6 g/dL 11/12/2021 4:04 AM [facility] Hematocrit 37.4 35.0 - 45.0 % 11/12/2021 4:04 AM [facility] MCV 91.7 80.7 - 98.3 fL 11/12/2021 4:04 AM [facility] MCH 28.9 26.7 - 34.0 pg 11/12/2021 4:04 AM [facility] MCHC 31.6 30.8 - 35.9 g/dL 11/12/2021 4:04 AM [facility] Platelet Count 296 150 - 400 10? 3 /uL 11/12/2021 4:04 AM [facility] RDW-SD 45.8 36.0 - 50.0 fL 11/12/2021 4:04 AM [facility] RDW-CV 13.5 11.2 - 14.8 % 11/12/2021 4:04 AM [facility] MPV 9.5 9.4 - 12.9 fL 11/12/2021 4:04 AM [facility] nRBC Absolute 0.00 0 10? 3 /uL 11/12/2021 4:04 AM [facility] nRBC Auto 0.0 0 /100 WBC 11/12/2021 4:04 AM [facility] Neutrophils % 61.8 35.0 - 70.0 % 11/12/2021 4:04 AM [facility] Lymphocytes % 26.4 20.0 - 43.0 % 11/12/2021 4:04 AM [facility] Monocytes % 7.7 5.0 - 13.0 % 11/12/2021 4:04 AM [facility] Eosinophils % 3.3 0.0 - 6.0 % 11/12/2021 4:04 AM [facility] Basophil % 0.4 0.0 - 2.0 % 11/12/2021 4:04 AM [facility] Neutrophils Absolute 6.85 1.60 - 7.00 10? 3 /uL 11/12/2021 4:04 AM [facility] Lymphocyte Absolute 2.92 1.10 - 3.90 10? 3 /uL 11/12/2021 4:04 AM CDT [facility] Monocytes Absolute 0.85 0.26 - 1.07 10? 3 /uL 11/12/2021 4:04 AM CDT [facility] Eosinophils Absolute 0.37 0.00 - 0.47 10? 3 /uL 11/12/2021 4:04 AM CDT [facility] Basophils Absolute 0.04 0.00 - 0.08 10? 3 /uL 11/12/2021 4:04 AM CDT [facility] Immature Granulocytes % 0.4 0.0 - 1.0 % 11/12/2021 4:04 AM CDT [facility] Immature Granulocytes Absolute 0.04 11/12/2021 4:04 AM CDT [facility] Blood BLOOD SPECIMEN / Unknown Venipuncture / Unknown 11/12/2021 3:36 AM CDT 11/12/2021 3:56 AM CDT Tima Cardenas MD LAB - HEMATOLOG Y ORDERABLES [facility] [address] [place] [address], [facility] [phone] * CT ANGIO CHEST PULM EMBOLISM (11/12/2021 [...] day 5 TERRANCE 11/17/2021 3:02 AM CDT [facility] MICROBIOLOGY Blood PERIPHERAL BLOOD / Unknown Venipuncture / Unknown 11/11/2021 10:43 PM CDT 11/11/2021 10:47 PM CDT Sisi Ricks PA-C LAB - MICROBIOLOGY ORDERABLES [facility] MICROBIOLOGY [address] [place] [address], [facility] [phone] * CULTURE BLOOD (11/11/2021 10:38 PM CDT) Culture No growth day 5 TERRANCE 11/17/2021 3:02 AM CDT [facility] MICROBIOLOGY Blood PERIPHERAL BLOOD / Unknown Venipuncture / Unknown 11/11/2021 10:38 PM CDT 11/11/2021 10:42 PM CDT Sisi Ricks PA-C LAB - MICROBIOLOGY ORDERABLES [facility] MICROBIOLOGY [address] [place] [address], [facility] [phone] * B-TYPE NATRIURETIC PEPTIDE (11/11/2021 10:38 PM CDT) [facility] BNP <10 <100 pg/mL 11/11/2021 11:27 PM CDT [facility] Comment: A decision threshold of 100 [...] - CHEMISTRY OR DERABLES Performing Organization Address City/[facility] Co de Phone Number [facility] [address] [place] [address], [place] [phone] * TROPONIN I (11/11/2021 10:38 PM CDT) [facility] Troponin I <0.010 <0.032 ng/mL 11/11/2021 11:06 PM CDT [facility] Blood BLOOD SPECIMEN / Unknown Venipuncture / Unknown 11/11/2021 10:38 PM CDT 11/11/2021 10:43 PM CDT Sisi Ricks PA-C LAB - CHEMISTRY OR DERABLES Performing Organization Address City/[facility] Co de Phone Number [facility] [address] [place] [address], [place] [phone] * (ABNORMAL) COMPREHENSIVE METABOLIC PANEL (11/11/2021 10:38 PM CDT) [facility] BUN 15 7 - 26 mg/dL 11/11/2021 11:13 PM CDT [facility] Creatinine 0.79 0.56 - 0.96 mg/dL 11/11/2021 11:13 PM CDT [facility] Sodium 138 136 - 145 mmol/L 11/11/2021 11:13 PM CDT [facility] Potassium 4.0 3.5 - 4.5 mmol/L 11/11/2021 11:13 PM [facility] Chloride 102 98 - 107 mmol/L 11/11/2021 11:13 PM [facility] CO2 23 22 - 29 mmol/L 11/11/2021 11:13 PM [facility] Glucose 213(H) 70 - 115 mg/dL 11/11/2021 11:13 PM [facility] Calcium 9.7 8.4 - 10.2 mg/dL 11/11/2021 11:13 PM [facility] Protein Total 8.8(H) 6.0 - 8.3 g/dL 11/11/2021 11:13 PM [facility] Albumin 3.1(L) 3.4 - 5.0 g/dL 11/11/2021 11:13 PM [facility] Bilirubin Total 0.4 0.2 - 1.2 mg/dL 11/11/2021 11:13 PM [facility] Alkaline Phosphatase 91 40 - 150 U/L 11/11/2021 11:13 PM [facility] ALT 17 5 - 55 U/L 11/11/2021 11:13 PM [facility] AST 13 5 - 34 U/L 11/11/2021 11:13 PM [facility] Anion Gap 17 8 - 18 11/11/2021 11:13 PM [facility] BUN/Creatinine Ratio 19 7 - 23 11/11/2021 11:13 PM [facility] Osmolality Calculated 293 270 - 300 mOsm/kg 11/11/2021 11:13 PM [facility] Albumin/Globulin Ratio 0.5(L) 1.1 - 2.3 11/11/2021 11:13 PM [facility] eGFR by CKD-EPI 83(L) >=90 mL/min/1.7 3 m2 11/11/2021 11:13 PM [facility] Blood BLOOD SPECIMEN / Unknown Venipuncture / Unknown 11/11/2021 10:38 PM CDT 11/11/2021 10:43 PM T Sisi Ricks PA-C LAB - CHEMISTRY OR DERABLES [facility] [address] [place] [address], [facility] [phone] * (ABNORMAL) CBC W AUTO DIFFERENTIAL (11/11/2021 10:38 PM CDT) WBC 13.1(H) 3.5 - 10.5 10? 3 /uL 11/11/2021 10:48 PM CDT [facility] RBC 4.58 3.80 - 5.20 10? 6 /uL 11/11/2021 10:48 PM T [facility] Hemoglobin 13.2 12.0 - 15.6 g/dL 11/11/2021 10:48 PM [facility] Hematocrit 41.6 35.0 - 45.0 % 11/11/2021 10:48 PM [facility] MCV 90.8 80.7 - 98.3 fL 11/11/2021 10:48 PM T [facility] MCH 28.8 26.7 - 34.0 pg 11/11/2021 10:48 PM CDT [facility] MCHC 31.7 30.8 - 35.9 g/dL 11/11/2021 10:48 PM T [facility] Platelet Count 305 150 - 400 10? 3 /uL 11/11/2021 10:48 PM [facility] RDW-SD 45.1 36.0 - 50.0 fL 11/11/2021 10:48 PM T [facility] RDW-CV 13.4 11.2 - 14.8 % 11/11/2021 10:48 PM T [facility] MPV 9.6 9.4 - 12.9 fL 11/11/2021 10:48 PM T [facility] nRBC Absolute 0.00 0 10? 3 /uL 11/11/2021 10:48 PM [facility] nRBC Auto 0.0 0 /100 WBC 11/11/2021 10:48 PM [facility] Neutrophils % 63.3 35.0 - 70.0 % 11/11/2021 10:48 PM T [facility] Lymphocytes % 25.8 20.0 - 43.0 % 11/11/2021 10:48 PM CDT [facility] Monocytes % 6.7 5.0 - 13.0 % 11/11/2021 10:48 PM CDT [facility] Eosinophils % 3.3 0.0 - 6.0 % 11/11/2021 10:48 PM CDT [facility] Basophil % 0.4 0.0 - 2.0 % 11/11/2021 10:48 PM CDT [facility] Neutrophils Absolute 8.26(H) 1.60 - 7.00 10? 3 /uL 11/11/2021 10:48 PM CDT [facility] Lymphocyte Absolute 3.37 1.10 - 3.90 10? 3 /uL 11/11/2021 10:48 PM CDT [facility] Monocytes Absolute 0.88 0.26 - 1.07 10? 3 /uL 11/11/2021 10:48 PM CDT [facility] Eosinophils Absolute 0.43 0.00 - 0.47 10? 3 /uL 11/11/2021 10:48 PM CDT [facility] Basophils Absolute 0.05 0.00 - 0.08 10? 3 /uL 11/11/2021 10:48 PM CDT [facility] Immature Granulocytes % 0.5 0.0 - 1.0 % 11/11/2021 10:48 PM CDT [facility] Immature Granulocytes Absolute 0.06 11/11/2021 10:48 PM CDT [facility] Blood BLOOD SPECIMEN / Unknown Venipuncture / Unknown 11/11/2021 10:38 PM CDT 11/11/2021 10:43 PM CDT Sisi Ricks PA-C LAB - HEMATOLOGY O RDERABLES [facility] [address] [place] [address], [facility] [phone] * XR CHEST 2VW (11/11/2021 5:26 PM [...] dictated by David Charlton MD, PhD (radiology aide). I, Dr. VI BELL have personally reviewed [...] dictated by David Charlton MD, PhD (radiology aide). Dr. VI Perez have personally reviewed and [...] SL MUSE Q-T Interval ms 326 ms [facility] MUSE QTC Calculation (Bezet) 418 ms SL MUSE Calculated P Gallaway 39 degrees [facility] MUSE Calculated R [place] 6 degrees SL MUSE Calculated T [place] 50 degrees SL MUSE Interpretation EKG NORMAL SINUS RHYTHM NORMAL ECG WHEN COMPARED WITH ECG OF 05-NOV-2021 13:25, NO SIGNIFICANT CHANGE WAS FOUND Confirmed by MD. Tirso , Lizzy ([id number]) on 11/12/2021 9:54:46 PM [facility] MUSE 11/11/2021 5:24 PM CDT 11/12/2021 9:54 PM CDT Sisi Ricks PA-C ECG ORDERABLES [facility] MUSE documented in this encounter Visit Diagnoses [...] the MAR. 0911 ($ Given - Provider: Kerry Anaya RN)1326 ($ Given - Provider: Kerry [...] EVENT. documented in this encounter Care Teams Amusement Park Worker Relationship Specialty Start Date End Date Justen Gale MD PCP - General 07/05/21 documented as of this encounter
--- OUTSIDE RECORDS SUMMARY | 2024-04-26 06:55 | XMS_ITS | Encounter Summary ---
Author Organization [facility] Address [address] [place] [address] Care Team Providers Care Radiographer Name Role Phone Justen Gale MD Primary Care Provider [phone] Reason for Visit * Reason Comments Post-Op Wound check Encounter Details Date Type Department Care Team (Late st Contact Info) Description 11/24/2021 11:00 AM CDT Office Visit [facility] [address] [place] [address], [address] [place] [address] Dasia Mendoza, SINGEING TORCH OPERATOR-INTERNET SOURCER [address] [address] Infection of spinal cord stimulator, sequela (Primary [...] replacement For any questions call Tendo at [phone] documented in this encounter Progress Notes * [...] for dorsal root column stimulator placement with Markr system on 09/16/[address] Gregg, who presented to [facility] as a transfer on 10/30/2021 with pain [...] 31G X 8 MM needle ??? Lancets (Precursor EnergeticsTOUCH DELICA PLUS 33G EXTRA FINE LANCET) ??? LANTUS SOLOSTAR pen ??? naloxone HCl (NARCAN) 4 MG/0.1ML nasal spray ??? NYSTOP [id number] UNIT/GM powder ??? ONETOUCH ULTRA test strip [...] and tone are normal. Deltoid Bicep Tricep Sixth Grade Teacher Wrist Ext Finger ext Hip Flexor Quad [...] for dorsal root column stimulator placement with Markr system on 09/16/21 by anthony Traylor/bstimulator batter [...] Primary documented in this encounter Care Teams Radiographer Relationship Specialty Start Date End Date Justen Gale MD PCP - General 07/05/21 documented as of this encounter
--- OUTSIDE RECORDS SUMMARY | 2024-04-26 06:55 | XMS_ITS | Encounter Summary ---
Author Organization [facility] Address [address] [place] [address] Care Team Providers Care Grocery Store Courtesy Clerk Name Role Phone Justen Gale MD Primary Care Provider [phone] Reason for Visit * Reason Onset Date Comments Allergy Symptoms 12/01/2021 Encounter Details Date Type Department Care Team (Late st Contact Info) Description 12/01/2021 Telephone [facility] [address] [facility] [place] [id number] Aravind Ndiaye, DO [address] [facility] [place]ious [place] [address] Allergy Symptoms Social History Tobacco [...] Ndiaye DO - 12/01/2021 8:27 PM CDT scallop dredger fellow was paged as patient is currently [...] her that if she comes to the [facility] ED, someone from ID would potentially be able to evaluate her depending on whether the ED providers believe she is having an allergic reaction and needs to be admitted. She stated thatshe will plan to come to the ED in the morning. Will inform the primary ID provider. Aravind Ndiaye DO, MS Infectious Diseases Fellow scallop dredger [facility] [address] [place] [address] Clinic phone [phone] Clinic fax [phone] documented in this encounter Plan of Treatment Not on file documented as of this encounter Visit Diagnoses Not on filedocumented in this encounter Care Teams Grocery Store Courtesy Clerk Relationship Specialty Start Date End Date Justen Gale MD PCP - General 07/05/21 documented as of this encounter
--- OUTSIDE RECORDS SUMMARY | 2024-04-26 06:55 | XMS_ITS | Encounter Summary ---
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 POINT OF CARE (11/04/2021 9:11 PM CDT) Glucose WB/POC 180(H) 70 - 115 mg/dL 11/04/2021 9:12 PM CDT [facility] Specimen Type Cap Fingerstick 2021 9:12 PM CDT [facility] Blood BLOOD SPECIMEN / Unknown 11/04/2021 9:11 PM CDT 11/04/2021 9:12 PM CDT Maxi Gregg MD LAB - POINT OF ARE ORDERABLES [address] [address], [place] [phone] * (ABNORMAL) GLUCOSE - POINT OF CARE (11/04/2021 5:02 PM CDT) Glucose WB/POC 132(H) 70 - 115 mg/dL 11/04/2021 5:06 PM CDT [facility] Specimen Type Arterial 11/04/2021 5:06 PM CDT [facility] Blood BLOOD SPECIMEN / Unknown 11/04/2021 5:02 PM CDT 11/04/2021 5:06 PM CDT Maxi Gregg MD LAB - POINT OF ARE ORDERABLES [address] [address], [place] [phone] * (ABNORMAL) GLUCOSE - POINT OF CARE (11/04/2021 11:29 AM CDT) Glucose WB/POC 192(H) 70 - 115 mg/dL 11/04/2021 11:34 AM CDT [facility] Specimen Type Cap Fingerstick 2021 11:34 AM CDT [facility] Blood BLOOD SPECIMEN / Unknown 11/04/2021 11:29 AM CDT 11/04/2021 11:34 AM CDT Maxi Gregg MD LAB - POINT OF ARE ORDERABLES [address] [address], [place] [phone] * (ABNORMAL) GLUCOSE - POINT OF CARE (11/04/2021 7:56 AM CDT) Glucose WB/POC 178(H) 70 - 115 mg/dL 11/04/2021 8:01 AM CDT [facility] Specimen Type Arterial 11/04/2021 8:01 AM CDT [facility] Blood BLOOD SPECIMEN / Unknown 11/04/2021 7:56 AM CDT 11/04/2021 8:01 AM CDT Maxi Gregg MD LAB - POINT OF C ARE ORDERABLES [address] [address], [place] [phone] * (ABNORMAL) GLUCOSE - POINT OF CARE (11/04/2021 3:24 AM CDT) Glucose WB/POC 182(H) 70 - 115 mg/dL 11/04/2021 3:25 AM CDT [facility] Specimen Type Arterial 11/04/2021 3:25 AM CDT [facility] Blood BLOOD SPECIMEN / Unknown 11/04/2021 3:24 AM CDT 11/04/2021 3:25 AM CDT Maxi Gregg MD LAB - POINT OF ARE ORDERABLES Performing Organization Address City/[facility]/ZIP Co de Phone Number [address] [address], [place] [phone] * (ABNORMAL) GLUCOSE - POINT OF CARE (11/03/2021 8:30 PM CDT) Glucose WB/POC 209(H) 70 - 115 mg/dL 11/03/2021 8:31 PM CDT [facility] Specimen Type Arterial 11/03/2021 8:31 PM CDT [facility] Blood BLOOD SPECIMEN / Unknown 11/03/2021 8:30 PM CDT 11/03/2021 8:30 PM CDT Maxi Gregg MD LAB - POINT OF ARE ORDERABLES [address] [address], [place] [phone] * (ABNORMAL) GLUCOSE - POINT OF CARE (11/03/2021 6:09 PM CDT) Glucose WB/POC 153(H) 70 - 115 mg/dL 11/03/2021 6:14 PM CDT [facility] Specimen Type Cap Fingerstick 2021 6:14 PM CDT [facility] Blood BLOOD SPECIMEN / Unknown 11/03/2021 6:09 PM CDT 11/03/2021 6:14 PM CDT Maxi Gregg MD LAB - POINT OF ARE ORDERABLES [address] [address], [place] [phone] * (ABNORMAL) GLUCOSE - POINT OF CARE (11/03/2021 12:13 PM CDT) Glucose WB/POC 185(H) 70 - 115 mg/dL 11/03/2021 12:19 PM CDT [facility] Specimen Type Cap Fingerstick 2021 12:19 PM CDT [facility] Blood BLOOD SPECIMEN / Unknown 11/03/2021 12:13 PM CDT 11/03/2021 12:18 PM CDT Maxi Gregg MD LAB - POINT OF C ARE ORDERABLES [address] [address], [place] [phone] * (ABNORMAL) GLUCOSE - POINT OF CARE (11/03/2021 8:17 AM CDT) Glucose WB/POC 154(H) 70 - 115 mg/dL 11/03/2021 8:21 AM CDT [facility] Specimen Type Cap Fingerstick 2021 8:21 AM CDT [facility] Blood BLOOD SPECIMEN / Unknown 11/03/2021 8:17 AM CDT 11/03/2021 8:21 AM CDT Maxi Gregg MD LAB - POINT OF C ARE ORDERABLES [address] [place] [address], [place] [phone] * (ABNORMAL) GLUCOSE - POINT OF CARE (11/03/2021 2:07 AM CDT) Glucose WB/POC 198(H) 70 - 115 mg/dL 11/03/2021 6:20 AM CDT [facility] Specimen Type Cap Fingerstick 2021 6:20 AM CDT [facility] Blood BLOOD SPECIMEN / Unknown 11/03/2021 2:07 AM CDT 11/03/2021 6:20 AM CDT Maxi Gregg MD LAB - POINT OF ARE ORDERABLES [address] [address], [place] [phone] * (ABNORMAL) GLUCOSE - POINT OF CARE (11/02/2021 7:45 PM CDT) Glucose WB/POC 189(H) 70 - 115 mg/dL 11/02/2021 7:49 PM CDT [facility] Specimen Type Cap Fingerstick 2021 7:49 PM CDT [facility] Blood BLOOD SPECIMEN / Unknown 11/02/2021 7:45 PM CDT 11/02/2021 7:49 PM CDT Maxi Gregg MD LAB - POINT OF ARE ORDERABLES [address] [address], [place] [phone] * (ABNORMAL) GLUCOSE - POINT OF CARE (11/02/2021 5:01 PM CDT) Glucose WB/POC 170(H) 70 - 115 mg/dL 11/02/2021 5:06 PM CDT [facility] Specimen Type Cap Fingerstick 2021 5:06 PM CDT [facility] Blood BLOOD SPECIMEN / Unknown 11/02/2021 5:01 PM CDT 11/02/2021 5:06 PM CDT Maxi Gregg MD LAB - POINT OF ARE ORDERABLES [address] [address], [place] [phone] * (ABNORMAL) GLUCOSE - POINT OF CARE (11/02/2021 12:03 PM CDT) Glucose WB/POC 187(H) 70 - 115 mg/dL 11/02/2021 5:06 PM CDT [facility] Specimen Type Cap Fingerstick 2021 5:06 PM CDT [facility] Blood BLOOD SPECIMEN / Unknown 11/02/2021 12:03 PM CDT 11/02/2021 5:06 PM CDT Maxi Gregg MD LAB - POINT OF ARE ORDERABLES Performing Organization Address City/[facility]/ZIP Co de Phone Number [address] [address], [place] [phone] * (ABNORMAL) GLUCOSE - POINT OF CARE (11/02/2021 7:55 AM CDT) Glucose WB/POC 179(H) 70 - 115 mg/dL 11/02/2021 8:00 AM CDT [facility] Specimen Type Arterial 11/02/2021 8:00 AM CDT [facility] Blood BLOOD SPECIMEN / Unknown 11/02/2021 7:55 AM CDT 11/02/2021 8:00 AM CDT Maxi Gregg MD LAB - POINT OF ARE ORDERABLES [address] [address], [place] [phone] * (ABNORMAL) GLUCOSE - POINT OF CARE (11/02/2021 2:02 AM CDT) Glucose WB/POC 199(H) 70 - 115 mg/dL 11/02/2021 2:07 AM CDT [facility] Specimen Type Cap Fingerstick 2021 2:07 AM CDT [facility] Blood BLOOD SPECIMEN / Unknown 11/02/2021 2:02 AM CDT 11/02/2021 2:07 AM CDT Maxi Gregg MD LAB - POINT [facility] ARE ORDERABLES [facility] [address] [place] [address], [place] [phone] * (ABNORMAL) GLUCOSE - POINT OF CARE (11/01/2021 8:35 PM CDT) Glucose WB/POC 259(H) 70 - 115 mg/dL 11/01/2021 8:40 PM CDT [facility] Specimen Type Cap Fingerstick 2021 8:40 PM CDT [facility] Blood BLOOD SPECIMEN / Unknown 11/01/2021 8:35 PM CDT 11/01/2021 8:40 PM CDT Maxi Gregg MD LAB - POINT OF ARE ORDERABLES [address] [address], [place] [phone] * (ABNORMAL) GLUCOSE - POINT OF CARE (11/01/2021 5:49 PM CDT) Glucose WB/POC 199(H) 70 - 115 mg/dL 11/01/2021 5:54 PM CDT [facility] Specimen Type Cap Fingerstick 2021 5:54 PM CDT [facility] Blood BLOOD SPECIMEN / Unknown 11/01/2021 5:49 PM CDT 11/01/2021 5:54 PM CDT Maxi Gregg MD LAB - POINT OF C ARE ORDERABLES [address] [address], [place] [phone] * CARDIAC EKG ORDER (11/01/2021 2:28 PM CDT) Narrative 11/01/2021 2:28 PM CDT Ordered by an unspecified provider. Scanned Document CARDIAC SERVICES ORD ERABLES * (ABNORMAL) GLUCOSE - POINT OF CARE (11/01/2021 12:34 PM CDT) Glucose WB/POC 207(H) 70 - 115 mg/dL 11/01/2021 12:39 PM CDT [facility] Specimen Type Arterial 11/01/2021 12:39 PM CDT [facility] Blood BLOOD SPECIMEN / Unknown 11/01/2021 12:34 PM CDT 11/01/2021 12:39 PM CDT Maxi Gregg MD LAB - POINT OF C ARE ORDERABLES [address] [address], [place] [phone] * (ABNORMAL) GLUCOSE - POINT OF CARE (11/01/2021 7:38 AM CDT) Glucose WB/POC 193(H) 70 - 115 mg/dL 11/01/2021 7:44 AM CDT [facility] Specimen Type Arterial 11/01/2021 7:44 AM CDT [facility] Blood BLOOD SPECIMEN / Unknown 11/01/2021 7:38 AM CDT 11/01/2021 7:44 AM CDT Maxi Gregg MD LAB - POINT OF C ARE ORDERABLES [address] [address], [place] [phone] * (ABNORMAL) GLUCOSE - POINT OF CARE (11/01/2021 2:06 AM CDT) Glucose WB/POC 247(H) 70 - 115 mg/dL 11/01/2021 2:11 AM CDT [facility] Specimen Type Cap Fingerstick 2021 2:11 AM CDT [facility] Blood BLOOD SPECIMEN / Unknown 11/01/2021 2:06 AM CDT 11/01/2021 2:11 AM CDT Maxi Gregg MD LAB - POINT OF C ARE ORDERABLES [address] [address], [place] [phone] * (ABNORMAL) C-REACTIVE PROTEIN (11/01/2021 1:22 AM CDT) C-Reactive Protein 14.3(H) <=0.5 mg/dL 11/01/2021 2:27 AM CDT [facility] Blood BLOOD SPECIMEN / Unknown Lab Venipuncture / Unknown 11/01/2021 1:22 AM CDT 11/01/2021 1:41 AM CDT Maxi Gregg MD LAB - CHEMISTRY ORDERABLES [address] [address], [place] [phone] * (ABNORMAL) ERYTHROCYTE SEDIMENTATION RATE (11/01/2021 1:21 AM CDT) Erythrocyte Sedimentation Rate Westergren 94(H) 0 - 30 MM/HR 11/01/2021 2:24 AM CDT [facility] Blood BLOOD SPECIMEN / Unknown Lab Venipuncture / Unknown 11/01/2021 1:21 AM CDT 11/01/2021 1:47 AM CDT Maxi Gregg MD LAB - HEMATOLOGY ORDERABLES [facility] [address] [place] [address], [place] [phone] * VANCOMYCIN LEVEL TROUGH (10/31/2021 9:53 PM CDT) Vancomycin Trough 13.6 10.0 - 20.0 ug/mL 10/31/2021 10:20 PM CDT [facility] Blood BLOOD SPECIMEN / Unknown Venipuncture / Unknown 10/31/2021 9:53 PM CDT 10/31/2021 9:56 PM CDT Narrative [facility] - 10/31/2021 10:20 PM CDT See institution protocol. Gil Hill MD LAB - CHEMISTR Y ORDERABLES [facility] [address] [place] [address], [place] [phone] * (ABNORMAL) GLUCOSE - POINT OF CARE (10/31/2021 7:46 PM CDT) Glucose WB/POC 301(H) 70 - 115 mg/dL 10/31/2021 7:47 PM CDT [facility] Specimen Type Arterial 10/31/2021 7:47 PM CDT [facility] Blood BLOOD SPECIMEN / Unknown 10/31/2021 7:46 PM CDT 10/31/2021 7:47 PM CDT Maxi Gregg MD LAB - POINT OF C ARE ORDERABLES [facility] [address] [place] [address], [place] [phone] * (ABNORMAL) GLUCOSE - POINT OF CARE (10/31/2021 5:04 PM CDT) Glucose WB/POC 243(H) 70 - 115 mg/dL 10/31/2021 5:09 PM CDT [facility] Specimen Type Cap Fingerstick 2021 5:09 PM CDT [facility] Blood BLOOD SPECIMEN / Unknown 10/31/2021 5:04 PM CDT 10/31/2021 5:09 PM CDT Maxi Gregg MD LAB - POINT OF ARE ORDERABLES [facility] [address] [place] [address], [place] [phone] * (ABNORMAL) GLUCOSE - POINT OF CARE (10/31/2021 12:59 PM CDT) Glucose WB/POC 282(H) 70 - 115 mg/dL 10/31/2021 1:04 PM CDT [facility] Specimen Type Cap Fingerstick 2021 1:04 PM CDT [facility] Blood BLOOD SPECIMEN / Unknown 10/31/2021 12:59 PM CDT 10/31/2021 1:04 PM CDT Maxi Gregg MD LAB - POINT OF ARE ORDERABLES Performing Organization Address City/[facility]/ZIP Co de Phone Number [facility] [address] [place] [address], [place] [phone] * PTT [facility] (10/31/2021 11:55 AM CDT) APTT 34.1 23.0 - 38.4 Seconds 10/31/2021 1:41 PM CDT [facility] Comment:Suggested therapeuti c range for full dose I.V. unfractionated heparin therapy for venous thromboembolism is 71 to 109 seconds. Blood BLOOD SPECIMEN / Unknown Lab Venipuncture / Unknown 10/31/2021 11:55 AM CDT 10/31/2021 1:09 PM CDT Gil Hill MD LAB - COAGULAT ION ORDERABLES Performing Organization Address City/[facility]/ZIP Co de Phone Number [facility] [address] [place] [address], [place] [phone] * (ABNORMAL) PT-INR [facility] (10/31/2021 11:55 AM CDT) PT 15.7(H) 12.1 - 14.8 Seconds 10/31/2021 1:40 PM CDT [facility] INR 1.3 See Comment 10/31/2021 1:40 PM [facility] Comment:The suggested therap eutic range for standard coumadin (warfarin) therapy is an INR of 2.0-3.0. For high-risk patients (Mechanical Mitral Valve Prosthesis, etc.), the suggested prophylactic therapeutic range is an INR of 2.5-3.5. Blood BLOOD SPECIMEN / Unknown Lab Venipuncture / Unknown 10/31/2021 11:55 AM CDT 10/31/2021 1:09 PM CDT Gil Hill MD LAB - COAGULAT ION ORDERABLES [facility] [address] [place] [address], [facility] [phone] * (ABNORMAL) COMPREHENSIVE METABOLIC PANEL (10/31/2021 11:55 AM CDT) Pathologist [facility] BUN 15 7 - 26 mg/dL 10/31/2021 1:35 PM [facility] Creatinine 0.66 0.56 - 0.96 mg/dL 10/31/2021 1:35 PM [facility] Sodium 137 136 - 145 mmol/L 10/31/2021 1:35 PM [facility] Potassium 4.1 3.5 - 4.5 mmol/L 10/31/2021 1:35 PM [facility] Chloride 103 98 - 107 mmol/L 10/31/2021 1:35 PM [facility] CO2 28 22 - 29 mmol/L 10/31/2021 1:35 PM [facility] Glucose 291(H) 70 - 115 mg/dL 10/31/2021 1:35 PM [facility] Calcium 9.1 8.4 - 10.2 mg/dL 10/31/2021 1:35 PM [facility] Protein Total 7.4 6.0 - 8.3 g/dL 10/31/2021 1:35 PM [facility] Albumin 2.6(L) 3.4 - 5.0 g/dL 10/31/2021 1:35 PM [facility] Bilirubin Total 0.5 0.2 - 1.2 mg/dL 10/31/2021 1:35 PM [facility] Alkaline Phosphatase 90 40 - 150 U/L 10/31/2021 1:35 PM [facility] ALT 14 5 - 55 U/L 10/31/2021 1:35 PM [facility] AST 8 5 - 34 U/L 10/31/2021 1:35 PM [facility] Anion Gap 10 8 - 18 10/31/2021 1:35 PM [facility] BUN/Creatinine Ratio 23 7 - 23 10/31/2021 1:35 PM [facility] Osmolality Calculated 296 270 - 300 mOsm/kg 10/31/2021 1:35 PM [facility] Albumin/Globulin Ratio 0.5(L) 1.1 - 2.3 10/31/2021 1:35 PM [facility] eGFR by CKD-EPI >90 >=90 mL/min/1.7 3 m2 10/31/2021 1:35 PM [facility] Blood BLOOD SPECIMEN / Unknown Lab Venipuncture / Unknown 10/31/2021 11:55 AM CDT 10/31/2021 1:07 PM [facility] Gil Hill MD LAB - CHEMISTR Y ORDERABLES [facility] [address] [place] [address], [facility] [phone] * (ABNORMAL) CBC W/O DIFFERENTIAL (10/31/2021 11:55 AM T) WBC 18.5(H) 3.5 - 10.5 10? 3 /uL 10/31/2021 1:14 PM [facility] RBC 4.19 3.80 - 5.20 10? 6 /uL 10/31/2021 1:14 PM [facility] Hemoglobin 12.2 12.0 - 15.6 g/dL 10/31/2021 1:14 PM [facility] Hematocrit 38.2 35.0 - 45.0 % 10/31/2021 1:14 PM [facility] MCV 91.2 80.7 - 98.3 fL 10/31/2021 1:14 PM [facility] MCH 29.1 26.7 - 34.0 pg 10/31/2021 1:14 PM [facility] MCHC 31.9 30.8 - 35.9 g/dL 10/31/2021 1:14 PM [facility] Platelet Count 283 150 - 400 10? 3 /uL 10/31/2021 1:14 PM [facility] RDW-SD 46.6 36.0 - 50.0 fL 10/31/2021 1:14 PM [facility] RDW-CV 13.8 11.2 - 14.8 % 10/31/2021 1:14 PM [facility] MPV 10.2 9.4 - 12.9 fL 10/31/2021 1:14 PM [facility] nRBC Absolute 0.00 0 10? 3 /uL 10/31/2021 1:14 PM [facility] nRBC Auto 0.0 0 /100 WBC 10/31/2021 1:14 PM [facility] Blood BLOOD SPECIMEN / Unknown Lab Venipuncture / Unknown 10/31/2021 11:55 AM CDT 10/31/2021 1:06 PM T Gil Hill MD LAB - HEMATOLO GY ORDERABLES [facility] [address] [place] [address], [facility] [phone] * (ABNORMAL) HEMOGLOBIN A1C (10/31/2021 11:55 AM CDT) Hemoglobin A1c 7.8(H) <=5.6 % 11/01/2021 11:06 AM [facility] Estimated Average Glucose 177 mg/dL 11/01/2021 11:06 AM CDT [facility] Comment: HbA1c Interpretation: Normal : < 5.7% Pre-diabetes: 5.7-6.4% Diabetes: Equal to or greater than 6.5% Test results diagnostic of diabetes should be repeated for confirmation. Treatment target values recommended by ADA and other clinical organizations should be used to evaluate metabolic control in patients. Reference: [place] [employer], Standards of Care in Diabetes [...] - CHEMISTR Y ORDERABLES Performing Organization Address City/[facility]/ZIP Co de Phone Number [address] [address], [place] [phone] * (ABNORMAL) GLUCOSE - POINT OF CARE (10/31/2021 8:09 AM CDT) [facility] Glucose WB/POC 222(H) 70 - 115 mg/dL 10/31/2021 8:13 AM CDT [facility] Specimen Type Arterial 10/31/2021 8:13 AM CDT [facility] Blood BLOOD SPECIMEN / Unknown 10/31/2021 8:09 AM CDT 10/31/2021 8:13 AM CDT Maxi Gregg MD LAB - POINT OF C ARE ORDERABLES [address] [address], [place] [phone] * (ABNORMAL) COMPREHENSIVE METABOLIC PANEL (10/30/2021 9:00 PM CDT) Pathologist [facility] [place] BUN 13 7 - 26 mg/dL 10/30/2021 9:51 PM [facility] Creatinine 0.68 0.56 - 0.96 mg/dL 10/30/2021 9:51 PM [facility] Sodium 137 136 - 145 mmol/L 10/30/2021 9:51 PM [facility] Potassium 4.6(H) 3.5 - 4.5 mmol/L 10/30/2021 9:51 PM [facility] Chloride 102 98 - 107 mmol/L 10/30/2021 9:51 PM [facility] CO2 25 22 - 29 mmol/L 10/30/2021 9:51 PM [facility] Glucose 294(H) 70 - 115 mg/dL 10/30/2021 9:51 PM [facility] Calcium 9.0 8.4 - 10.2 mg/dL 10/30/2021 9:51 PM [facility] Protein Total 7.2 6.0 - 8.3 g/dL 10/30/2021 9:51 PM [facility] Albumin 2.7(L) 3.4 - 5.0 g/dL 10/30/2021 9:51 PM [facility] Bilirubin Total 1.1 0.2 - 1.2 mg/dL 10/30/2021 9:51 PM [facility] Alkaline Phosphatase 74 40 - 150 U/L 10/30/2021 9:51 PM [facility] ALT 14 5 - 55 U/L 10/30/2021 9:51 PM [facility] AST 9 5 - 34 U/L 10/30/2021 9:51 PM [facility] Anion Gap 15 8 - 18 10/30/2021 9:51 PM [facility] BUN/Creatinine Ratio 19 7 - 23 10/30/2021 9:51 PM [facility] Osmolality Calculated 295 270 - 300 mOsm/kg 10/30/2021 9:51 PM [facility] Albumin/Globulin Ratio 0.6(L) 1.1 - 2.3 10/30/2021 9:51 PM [facility] eGFR by CKD-EPI >90 >=90 mL/min/1.7 3 m2 10/30/2021 9:51 PM [facility] Blood BLOOD SPECIMEN / Unknown Lab Venipuncture / Unknown 10/30/2021 9:00 PM CDT 10/30/2021 9:22 PM CDT Gil Hill MD LAB - CHEMISTR Y ORDERABLES Performing Organization Address [facility]/State/ZIP Co de Phone Number [facility] [address] [place] [id number], [facility] [phone] * (ABNORMAL) CBC W AUTO DIFFERENTIAL (10/30/2021 9:00 PM CDT) WBC 20.5(H) 3.5 - 10.5 10? 3 /uL 10/30/2021 9:28 PM [facility] RBC 4.07 3.80 - 5.20 10? 6 /uL 10/30/2021 9:28 PM [facility] Hemoglobin 12.0 12.0 - 15.6 g/dL 10/30/2021 9:28 PM [facility] Hematocrit 37.2 35.0 - 45.0 % 10/30/2021 9:28 PM [facility] MCV 91.4 80.7 - 98.3 fL 10/30/2021 9:28 PM [facility] MCH 29.5 26.7 - 34.0 pg 10/30/2021 9:28 PM [facility] MCHC 32.3 30.8 - 35.9 g/dL 10/30/2021 9:28 PM [facility] Platelet Count 255 150 - 400 10? 3 /uL 10/30/2021 9:28 PM [facility] RDW-SD 47.0 36.0 - 50.0 fL 10/30/2021 9:28 PM [facility] RDW-CV 13.9 11.2 - 14.8 % 10/30/2021 9:28 PM [facility] MPV 9.6 9.4 - 12.9 fL 10/30/2021 9:28 PM [facility] nRBC Absolute 0.00 0 10? 3 /uL 10/30/2021 9:28 PM [facility] nRBC Auto 0.0 0 /100 WBC 10/30/2021 9:28 PM [facility] Neutrophils % 93.0(H) 35.0 - 70.0 % 10/30/2021 9:28 PM [facility] Lymphocytes % 3.8(L) 20.0 - 43.0 % 10/30/2021 9:28 PM [facility] Monocytes % 2.5(L) 5.0 - 13.0 % 10/30/2021 9:28 PM [facility] Eosinophils % 0.0 0.0 - 6.0 % 10/30/2021 9:28 PM [facility] Basophil % 0.2 0.0 - 2.0 % 10/30/2021 9:28 PM [facility] Neutrophils Absolute 19.09(H) 1.60 - 7.00 10? 3 /uL 10/30/2021 9:28 PM [facility] Lymphocyte Absolute 0.77(L) 1.10 - 3.90 10? 3 /uL 10/30/2021 9:28 PM [facility] Monocytes Absolute 0.52 0.26 - 1.07 10? 3 /uL 10/30/2021 9:28 PM [facility] Eosinophils Absolute 0.01 0.00 - 0.47 10? 3 /uL 10/30/2021 9:28 PM [facility] Basophils Absolute 0.04 0.00 - 0.08 10? 3 /uL 10/30/2021 9:28 PM [facility] Immature Granulocytes % 0.5 0.0 - 1.0 % 10/30/2021 9:28 PM [facility] Immature Granulocytes Absolute 0.10 10/30/2021 9:28 PM [facility] Blood BLOOD SPECIMEN / Unknown Lab Venipuncture / Unknown 10/30/2021 9:00 PM CDT 10/30/2021 9:22 PM [facility] Gil Hill MD LAB - HEMATOLO GY ORDERABLES Performing Organization Address City/State/[facility] Co de Phone Number [facility] [address] [id number], [facility] [phone] * (ABNORMAL) PT-INR [facility] (10/30/2021 9:00 PM CDT) PT 15.8(H) 12.1 - 14.8 Seconds 10/30/2021 9:47 PM CDT [facility] INR 1.3 See Comment 10/30/2021 9:47 PM CDT [facility] [...] Hill MD LAB - COAGULAT ION ORDERABLES [facility] [address] [place] [address], [facility] [phone] * PTT [facility] (10/30/2021 9:00 PM CDT) Pathologist [facility] APTT 30.8 23.0 - 38.4 Seconds 10/30/2021 9:47 PM CDT [facility] Comment:Suggested therapeuti c range for full dose I.V. unfractionated heparin therapy for venous thromboembolism is 71 to 109 seconds. Blood BLOOD SPECIMEN / Unknown Lab Venipuncture / Unknown 10/30/2021 9:00 PM CDT 10/30/2021 9:22 PM CDT Gil Hill MD LAB - COAGULAT ION ORDERABLES [facility] [address] [place] [address], [facility] [phone] * XR CHEST 1VW PORTABLE (10/30/2021 6:34 [...] intact. Report dictated by Alex Bradley MD (vice president regulatory). I, Dr. TYLOR PENNINGTON have personally reviewed [...] intact. Report dictated by Alex Bradley MD (vice president regulatory). Dr. TYLOR Perez have personally reviewed and interpreted this examination/study. This report was electronically signed by TYLOR PENNINGTON on 10/31/2021 11:18 AM . Gil Hill MD DIAGNOSTIC PATRICK GING ORDERABLES * (ABNORMAL) GLUCOSE - POINT OF CARE (10/30/2021 5:30 PM CDT) Glucose WB/POC 173(H) 70 - 115 mg/dL 10/30/2021 5:35 PM CDT [facility] Specimen Type Cap Fingerstick 2021 5:35 PM CDT [facility] Blood BLOOD SPECIMEN / Unknown 10/30/2021 5:30 PM CDT 10/30/2021 5:35 PM CDT Gil Hill MD LAB - POINT OF CARE ORDERABLES [facility] [address] [place] [address], [place] [phone] * CULTURE FUNGUS OTHER+FUNGUS SMEAR (10/30/2021 4:51 PM CDT) Pathologist [facility] Culture No fungus isolated TERRANCE 11/29/2021 12:06 PM CDT [facility] Fungus Stain No yeast or hyphae seen 11/29/2021 12:06 PM CDT [facility]CRO[facility] Microbiology SPECIMEN FROM WOUND / Unknown Collection / Unknown 10/30/2021 4:51 PM CDT 10/30/2021 5:24 PM CDT Maxi Gregg MD LAB - MICROBIOLO GY ORDERABLES Performing Organization Address City/[facility]/ZIP Co de Phone Number [facility] [address] [place] [address], [facility] [phone] * CULTURE ANAEROBE (10/30/2021 4:51 PM CDT) Culture No anaerobic organisms isolated TERRANCE 11/04/2021 11:12 AM CDT [facility]CRO[facility] Microbiology SPECIMEN FROM WOUND / Unknown Collection / Unknown 10/30/2021 4:51 PM CDT 10/30/2021 5:24 PM CDT Maxi Gregg MD LAB - MICROBIOLO GY ORDERABLES [facility]CROBIOLOGY [address] [place] [address], [facility] [phone] * (ABNORMAL) CULTURE FLUID+GRAM STAIN (10/30/2021 4:51 PM CDT) Culture Heavy Escherichia coli(AA) TERRANCE 11/03/2021 12:18 AM CDT [facility] Comment:Strain 1 Culture Heavy Escherichia coli(AA) TERRANCE 11/03/2021 12:18 AM CDT [facility] Comment:Strain 2 Gram Stain Heavy Polymorphonuclear cells(AA) 11/03/2021 12:18 AM CDT [facility]CRO[facility] Gram Stain Light Gram-negative bacilli(AA) 11/03/2021 12:18 AM CDT [facility] Fluid BODY FLUID SPECIMEN / Unknown [...] Gregg MD LAB - MICROBIOLO GY ORDERABLES [facility] MICRO[facility] [address] [place] [address], [facility] [phone] * (ABNORMAL) GLUCOSE - POINT OF CARE (10/30/2021 2:48 PM CDT) Pathologist [facility] Glucose WB/POC 170(H) 70 - 115 mg/dL 10/30/2021 2:53 PM CDT [facility] Specimen Type Cap Fingerstick 2021 2:53 PM CDT [facility] Blood BLOOD SPECIMEN / Unknown 10/30/2021 2:48 PM CDT 10/30/2021 2:53 PM CDT Gil Hill MD LAB - POINT OF CARE ORDERABLES [facility] [address] [place] [address], [place] [phone] * (ABNORMAL) PT-INR [facility] (10/30/2021 1:46 PM CDT) Pathologist [facility] PT 15.8(H) 12.1 - 14.8 Seconds 10/30/2021 2:21 PM CDT [facility] INR 1.3 See Comment 10/30/2021 2:21 PM CDT [facility] Comment:The suggested therap eutic range for standard coumadin (warfarin) therapy is an INR of 2.0-3.0. For high-risk patients (Mechanical Mitral Valve Prosthesis, etc.), the suggested prophylactic therapeutic range is an INR of 2.5-3.5. Blood BLOOD SPECIMEN / Unknown Venipuncture / Unknown 10/30/2021 1:46 PM CDT 10/30/2021 1:56 PM CDT Gil Hill MD LAB - COAGULAT ION ORDERABLES Performing Organization Address [facility]/ZIP Co de Phone Number [facility] [address] [place] [address], [facility] [phone] * PTT [facility] (10/30/2021 1:46 PM CDT) APTT 30.7 23.0 - 38.4 Seconds 10/30/2021 2:22 PM CDT [facility] Comment:Suggested therapeuti c range for full dose I.V. unfractionated heparin therapy for venous thromboembolism is 71 to 109 seconds. Blood BLOOD SPECIMEN / Unknown Venipuncture / Unknown 10/30/2021 1:46 PM CDT 10/30/2021 1:56 PM CDT Gil Hill MD LAB - COAGULAT ION ORDERABLES Performing Organization Address [facility] Co de Phone Number [address] [address], [facility] [phone] * (ABNORMAL) URINALYSIS REFLEX TO MICROSCOPIC NO CULTURE (10/30/2021 1:46 PM CDT) Color UA Yellow Straw, Yellow 10/30/2021 2:04 PM CDT [facility] Clarity UA Clear Clear 10/30/2021 2:04 PM CDT [facility] Specific Harvey UA 1.027 1.005 - 1.030 10/30/2021 2:04 PM CDT [facility] pH UA 5.0 5.0 - 8.0 pH 10/30/2021 2:04 PM CDT [facility] Protein UA Negative Negative 10/30/2021 2:04 PM CDT [facility] Glucose UA 1+(A) Negative 10/30/2021 2:04 PM T [facility] Ketone UA Negative Negative 10/30/2021 2:04 PM T [facility] Bilirubin UA Negative Negative 10/30/2021 2:04 PM T [facility] Blood UA 1+(A) Negative 10/30/2021 2:04 PM CDT [facility] Nitrite UA Negative Negative 10/30/2021 2:04 PM T [facility] Leukocyte Esterase Negative Negative 10/30/2021 2:04 PM T [facility] Urobilinogen UA Negative Negative mg/dL 10/30/2021 2:04 PM T [facility] RBC UA 6-10(A) None Seen, 0-2, 3-5 /HPF 10/30/2021 2:04 PM T [facility] WBC UA 6-10(A) None Seen, 0-5 /HPF 10/30/2021 2:04 PM T [facility] Squamous Epithelial Cells UA None Seen None Seen, 0-2, 3-5 /HPF 10/30/2021 2:04 PM [facility] Mucus UA 2+ /LPF 10/30/2021 2:04 PM T [facility] Urine URINE SPECIMEN OBTAINED BY CLEAN CATCH PROCEDURE / Unknown Collection / Unknown 10/30/2021 1:46 PM CDT 10/30/2021 1:55 PM CDT Narrative [facility] - 10/30/2021 2:04 PM CDT Gil Hill MD LAB - URINALYS IS ORDERABLES [facility] [address] [place] [address], [facility] [phone] * TYPE + SCREEN PANEL (10/30/2021 1:46 PM CDT) Antibody Screen NEG 2:40 PM CDT [facility] ABO Rh O POS 10/30/2021 2:40 PM CDT [facility] Blood Bank BLOOD SPECIMEN / Unknown Venipuncture / Unknown 10/30/2021 1:46 PM CDT 10/30/2021 1:56 PM CDT Gil Hill MD LAB - BLOOD BA NK ORDERABLES Performing Organization Address [facility] Co de Phone Number [facility] [address] [place] [address], [place] [phone] * EKG 12-LEAD (10/30/2021 12:00 PM CDT) Ventricular Rate 82 BPM [facility] Atrial Rate 82 BPM [facility] P-R Interval 124 ms [facility] QRS Duration ms 88 ms [facility] Q-T Interval ms 372 ms [facility] QTC Calculation (Bezet) 434 ms [facility] Calculated P Ewell 60 degrees SL MUSE Calculated R Ewell 11 degrees SL MUSE Calculated T Ewell 38 degrees [facility] Interpretation EKG NORMAL SINUS RHYTHM WITH SINUS ARRHYTHMIA NONSPECIFIC T WAVE ABNORMALITY ABNORMAL ECG NO PREVIOUS ECGS AVAILABLE Confirmed by MD Tirso. , Lizzy ([id number]) on 10/31/2021 6:58:26 PM [facility] 10/30/2021 12:0 0 PM CDT 10/31/2021 6:58 PM CDT Gil Hill MD ECG ORDERABLES Performing Organization Address [facility] de Phone Number [facility] * BLOOD TYPE VERIFICATION (10/30/2021 11:31 AM CDT) ABO Rh O POS 10/30/2021 2:2 7 PM CDT [facility] Blood Bank BLOOD SPECIMEN / Unknown 10/30/2021 11:31 AM CDT 10/30/2021 1:58 PM CDT Della Sagastmue MD LAB - BLOOD BANK ORD ERABLES Performing Organization Address [facility] Co de Phone Number [facility] [address] [place] [address], [place] [phone] * CULTURE URINE (10/30/2021 8:03 AM CDT) Culture Urine <10,000 CFU/mL urogenital evelio TERRANCE 10/31/2021 11:39 AM CDT [facility] Urine URINE SPECIMEN OBTAINED BY CLEAN CATCH PROCEDURE / Unknown Collection / Unknown 10/30/2021 8:03 AM CDT 10/30/2021 8:10 AM CDT Lila Castillo MD LAB - MICROBIOLOGY O RDERABLES [facility] [address] [place] [address], [facility] [phone] * (ABNORMAL) URINALYSIS REFLEX TO MICROSCOPIC NO CULTURE (10/30/2021 8:03 AM CDT) Color UA Yellow Straw, Yellow 10/30/2021 8:20 AM [facility] Clarity UA Clear Clear 10/30/2021 8:20 AM [facility] Specific Harvey UA 1.027 1.005 - 1.030 10/30/2021 8:20 AM [facility] pH UA 5.0 5.0 - 8.0 pH 10/30/2021 8:20 AM [facility] Protein UA Negative Negative 10/30/2021 8:20 AM [facility] Glucose UA 1+(A) Negative 10/30/2021 8:20 AM [facility] Ketone UA Negative Negative 10/30/2021 8:20 AM [facility] Bilirubin UA Negative Negative 10/30/2021 8:20 AM [facility] Blood UA 1+(A) Negative 10/30/2021 8:20 AM [facility] Nitrite UA Negative Negative 10/30/2021 8:20 AM [facility] Leukocyte Esterase Negative Negative 10/30/2021 8:20 AM [facility] Urobilinogen UA Negative Negative mg/dL 10/30/2021 8:20 AM [facility] RBC UA 6-10(A) None Seen, 0-2, 3-5 /HPF 10/30/2021 8:20 AM [facility] WBC UA 0-5 None Seen, 0-5 /HPF 10/30/2021 8:20 AM CDT [facility] Squamous Epithelial Cells UA None Seen None Seen, 0-2, 3-5 /HPF 10/30/2021 8:20 AM CDT [facility] Urine URINE SPECIMEN OBTAINED BY CLEAN CATCH PROCEDURE / Unknown Collection / Unknown 10/30/2021 8:03 AM CDT 10/30/2021 8:10 AM CDT Narrative [facility] - 10/30/2021 8:20 AM CDT Lila Castillo MD LAB - URINALYSIS ORD ERABLES Performing Organization Address City/[facility]/ZIP Co de Phone Number [facility] [address] [place] [address], [facility] [phone] * CULTURE BLOOD (10/30/2021 6:41 AM CDT) Culture No growth day 5 [place]ERRANCE 11/04/2021 10:32 AM CDT [facility] Blood PERIPHERAL BLOOD / Unknown Venipuncture / Unknown 10/30/2021 6:41 AM CDT 10/30/2021 7:01 AM CDT Lila Castillo MD LAB - MICROBIOLOGY O RDERABLES Performing Organization Address City/[facility]/ZIP Co de Phone Number [facility] [address] [place] [address], [facility] [phone] * CULTURE BLOOD (10/30/2021 6:40 AM CDT) Culture No growth day 5 TERRANCE 11/04/2021 10:32 AM CDT [facility] Blood PERIPHERAL BLOOD / Unknown Venipuncture / Unknown 10/30/2021 6:40 AM CDT 10/30/2021 7:01 AM CDT Lila Castillo MD LAB - MICROBIOLOGY O RDERABLES Performing Organization Address City/[facility]/ZIP Co de Phone Number [facility] [address] [place] [address] [phone] * (ABNORMAL) C-REACTIVE PROTEIN (10/30/2021 5:33 AM CDT) Pathologist [facility] C-Reactive Protein 14.2(H) <=0.5 mg/dL 10/30/2021 6:13 AM CDT [facility] Blood BLOOD SPECIMEN / Unknown Venipuncture / Unknown 10/30/2021 5:33 AM CDT 10/30/2021 5:43 AM CDT Lila Castillo MD LAB - CHEMISTRY ORDE RABSIMRAN [address] [address], [facility] [phone] * (ABNORMAL) ERYTHROCYTE SEDIMENTATION RATE (10/30/2021 5:33 AM CDT) [facility] Erythrocyte Sedimentation Rate Westergren 107(H) 0 - 30 MM/HR 10/30/2021 6:13 AM CDT [facility] Blood BLOOD SPECIMEN / Unknown Venipuncture / Unknown 10/30/2021 5:33 AM CDT 10/30/2021 5:44 AM CDT Lila Castillo MD LAB - HEMATOLOGY ORD ERABLES [address] [address], [place] [phone] * (ABNORMAL) COMPREHENSIVE METABOLIC PANEL (10/30/2021 5:33 AM CDT) Pathologist [facility] BUN 14 7 - 26 mg/dL 10/30/2021 6:10 AM CDT [facility] Creatinine 0.63 0.56 - 0.96 mg/dL 10/30/2021 6:10 AM CDT [facility] Sodium 135(L) 136 - 145 mmol/L 10/30/2021 6:10 AM CDT [facility] Potassium 4.1 3.5 - 4.5 mmol/L 10/30/2021 6:10 AM CDT [facility] Chloride 99 98 - 107 mmol/L 10/30/2021 6:10 AM [facility] CO2 27 22 - 29 mmol/L 10/30/2021 6:10 AM [facility] Glucose 217(H) 70 - 115 mg/dL 10/30/2021 6:10 AM [facility] Calcium 9.2 8.4 - 10.2 mg/dL 10/30/2021 6:10 AM [facility] Protein Total 7.2 6.0 - 8.3 g/dL 10/30/2021 6:10 AM [facility] Albumin 2.8(L) 3.4 - 5.0 g/dL 10/30/2021 6:10 AM [facility] Bilirubin Total 1.3(H) 0.2 - 1.2 mg/dL 10/30/2021 6:10 AM [facility] Alkaline Phosphatase 77 40 - 150 U/L 10/30/2021 6:10 AM [facility] ALT 14 5 - 55 U/L 10/30/2021 6:10 AM [facility] AST 11 5 - 34 U/L 10/30/2021 6:10 AM [facility] Anion Gap 13 8 - 18 10/30/2021 6:10 AM [facility] BUN/Creatinine Ratio 22 7 - 23 10/30/2021 6:10 AM [facility] Osmolality Calculated 287 270 - 300 mOsm/kg 10/30/2021 6:10 AM [facility] Albumin/Globulin Ratio 0.6(L) 1.1 - 2.3 10/30/2021 6:10 AM [facility] eGFR by CKD-EPI >90 >=90 mL/min/1.7 3 m2 10/30/2021 6:10 AM [facility] Blood BLOOD SPECIMEN / Unknown Venipuncture / Unknown 10/30/2021 5:33 AM CDT 10/30/2021 5:44 AM [facility] Lila Castillo MD LAB - CHEMISTRY ANGEL SPEARS [facility] Organization Address City/State/ZIP Co de Phone Number [facility] [address] [address], [facility] [phone] * (ABNORMAL) CBC W AUTO DIFFERENTIAL (10/30/2021 5:33 AM CDT) WBC 20.5(H) 3.5 - 10.5 10? 3 /uL 10/30/2021 5:56 AM [facility] RBC 4.28 3.80 - 5.20 10? 6 /uL 10/30/2021 5:56 AM [facility] Hemoglobin 12.5 12.0 - 15.6 g/dL 10/30/2021 5:56 AM [facility] Hematocrit 39.8 35.0 - 45.0 % 10/30/2021 5:56 AM [facility] MCV 93.0 80.7 - 98.3 fL 10/30/2021 5:56 AM [facility] MCH 29.2 26.7 - 34.0 pg 10/30/2021 5:56 AM [facility] MCHC 31.4 30.8 - 35.9 g/dL 10/30/2021 5:56 AM [facility] Platelet Count 298 150 - 400 10? 3 /uL 10/30/2021 5:56 AM [facility] RDW-SD 47.6 36.0 - 50.0 fL 10/30/2021 5:56 AM [facility] RDW-CV 14.1 11.2 - 14.8 % 10/30/2021 5:56 AM [facility] MPV 10.4 9.4 - 12.9 fL 10/30/2021 5:56 AM [facility] nRBC Absolute 0.00 0 10? 3 /uL 10/30/2021 5:56 AM [facility] nRBC Auto 0.0 0 /100 WBC 10/30/2021 5:56 AM [facility] Neutrophils % 82.3(H) 35.0 - 70.0 % 10/30/2021 5:56 AM [facility] Lymphocytes % 8.8(L) 20.0 - 43.0 % 10/30/2021 5:56 AM [facility] Monocytes % 7.4 5.0 - 13.0 % 10/30/2021 5:56 AM [facility] Eosinophils % 0.8 0.0 - 6.0 % 10/30/2021 5:56 AM [facility] Basophil % 0.2 0.0 - 2.0 % 10/30/2021 5:56 AM [facility] Neutrophils Absolute 16.83(H) 1.60 - 7.00 10? 3 /uL 10/30/2021 5:56 AM [facility] Lymphocyte Absolute 1.80 1.10 - 3.90 10? 3 /uL 10/30/2021 5:56 AM [facility] Monocytes Absolute 1.52(H) 0.26 - 1.07 10? 3 /uL 10/30/2021 5:56 AM [facility] Eosinophils Absolute 0.17 0.00 - 0.47 10? 3 /uL 10/30/2021 5:56 AM [facility] Basophils Absolute 0.04 0.00 - 0.08 10? 3 /uL 10/30/2021 5:56 AM [facility] Immature Granulocytes % 0.5 0.0 - 1.0 % 10/30/2021 5:56 AM [facility] Immature Granulocytes Absolute 0.11 10/30/2021 5:56 AM [facility] Blood BLOOD SPECIMEN / Unknown Venipuncture / Unknown 10/30/2021 5:33 AM CDT 10/30/2021 5:44 AM [facility] Lila Castillo MD LAB - HEMATOLOGY ORD ERABLES [facility] [address] [place] [address], [facility] [phone] documented in this encounter Visit Diagnoses Diagnosis S/P insertion of spinal cord stimulator- Primary Preoperative examination Preoperative examination, unspecified S/P insertion of spinal cord stimulator Acute post-operative pain Chronic anticoagulation Encounter for long-term (current) use of anticoagulants Other acute postprocedural pain FPC (current) use of anticoagulants Long-term (current) use [...] (pediatric) Type 2 diabetes mellitus without complication ([facility]) Preoperative examination Preoperative examination, unspecified Acute post-operative [...] 11/05/2021 2:30 PM CDT 500 mL HYDROcodone-acetaminophen (Leroy) 5-325 MG tablet 1 tablet 1 tablet, [...] 10/30/2021 2:52 PM CDT 1 tablet HYDROcodone-acetaminophen (Leroy) 5-325 MG tablet 1 tablet 1 tablet, [...] 10/30/2021 8:34 PM CDT 1 tablet HYDROcodone-acetaminophen (Leroy) 5-325 MG tablet 2 tablet 2 tablet, [...] EVENT. documented in this encounter Care Teams Attending Anesthesiologist Relationship Specialty Start Date End Date Justen Gale MD PCP - General 07/05/21 documented as of this encounter
--- OUTSIDE RECORDS SUMMARY | 2024-04-26 06:55 | XMS_ITS | Encounter Summary ---
Author Organization [facility] Address [address] [place] [address] Care Team Providers Care On Call Name Role Phone Justen Gale MD Primary Care Provider Reason for Visit * Reason Onset Date Comments Med Question 11/29/2021 Encounter Details Date Type Department Care Team (Late st Contact Info) Description 11/29/2021 Telephone [facility] [address] [place] [id number] Chantel Bentley Med Question Social History Tobacco [...] on filedocumented in this encounter Care Teams On Call Relationship Specialty Start Date End Date Justen Gale MD PCP - General 07/05/21 documented as of this encounter
--- OUTSIDE RECORDS SUMMARY | 2024-04-26 06:55 | XMS_ITS | Encounter Summary ---
Author Organization [facility] Address [address] [facility] [place] [address] Care Team Providers Care Epoxy Fabrication Supervisor Name Role Phone Justen Gale MD Primary Care Provider [phone] Reason for Visit * Reason Onset Date Comments Transitions Of Care 11/11/2021 Encounter Details Date Type Department Care Team (Late st Contact Info) Description 11/11/2021 Telephone [facility] [address] [place] [phone] Bianca Daugherty, RN Transitions Of Care Social [...] RN - 11/11/2021 10:24 AM CDT [employer] ([facility]) post discharge follow-up contact by telephone: Patient with recent IP discharge from [facility] on 11/06/21. This patient contacted [facility] by telephone ([phone]) in regards to a voicemail she received, [...] 3 minutes Bianca Daugherty RN, BSN [employer] Office: [phone] 11/11/2021 documented in this encounter Plan of Treatment Not on file documented as of this encounter Visit Diagnoses Not on filedocumented in this encounter Care Teams Ep[employer]ric[employer] Supervisor Relationship Specialty Start Date End Date Justen Gale MD PCP - General 07/05/21 documented as of this encounter
--- OUTSIDE RECORDS SUMMARY | 2024-04-26 06:55 | XMS_ITS | Encounter Summary ---
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 and surgery on [...] CDT - 12/02/2021 4:42 PM CDT Emergency [facility] EMERGENCY [facility]PART[facility] [address] [place] [address] Epi Solitario MD [address] [place] [phone] Encounter for assessment of peripherally inserted [...] Continue your antibiotics and follow up with [facility] Infectious Disease at your scheduled appointment [...] days 3.6 mL 11/16/2021 12/16/2021 HYDROcodone-acetamin ophen (Fincastle) 7.5-325 MG tablet Take 1 tablet by mouth every 6 hours as needed for Pain 04/04/2022 LANTUS SOLOSTAR pen Inject 10 (ten) Units subcutaneously once daily for 30 days 3 mL 11/16/2021 12/16/2021 naloxone HCl (NARCAN) 4 MG/0.1ML nasal spray as needed 05/13/2021 04/20/2023 NYSTOP 960903 UNIT/GM powder APPLY TO THE AFFECTED AREA THREE TIMES DAILY FOR 14 DAYS 11/09/2021 04/04/2022 pantoprazole EC (PROTONIX) 40 MG tablet Take 40 mg by mouth once daily 11/09/2021 04/04/2022 tiZANidine (ZANAFLEX) 4 MG tablet 09/16/2021 04/04/2022 XARELTO 20 MG tablet 11/08/2021 023 documented as of this encounter Progress Notes * Shanthi Ross - 12/02/2021 4:42 PM CDT Discharge Pet Counselor received request from Dr. Cobb to arrange follow-up appointment for Patient with Neurosurgery. This film writer sent this request through the work que. Pet Counselor was able to obtain follow-up appointment for Patient with Dr. Germain on 01-03-22 at 4:00 pm. The patient is scheduled for a CT scan on 12-16-21. No further follow-up needs from radiology scheduler indicated at this time. Shanthi Ross, Discharge Pet Counselor 12/09/2021 documented in this encounter ED Notes [...] DATE/TIME OF EXAM: 12/02/2021 3:31 PM, LOCATION [facility] INDICATION: T82.9XXA: Central line complication, [...] Report dictated by Miracle Moody MD (residential property tax appraiser). I, Raquel Cedillo MD have personally reviewed [...] Sutton PA-C - 12/02/2021 4:26 PM CDT [id number] Contact Dermatitis Contact dermatitis is a skin [...] dyes and rinses, soaps, solvents, waxes, fingernail albanian, and deodorants ?? Jewelry or watchbands made [...] open blisters Last Reviewed Date: 2021 ?? [id number] [employer]. All rights reserved. This information is not intended as a substitute for professional medical care. Always follow your healthcare professional's instructions. * Clinical References AVS - Hannah uStton PA-C - 12/02/2021 4:26 PM CDT [id number] Contact Dermatitis Contact dermatitis is a skin [...] dyes and rinses, soaps, solvents, waxes, fingernail albanian, and deodorants ?? Jewelry or watchbands made [...] open blisters Last Reviewed Date: 2021 ?? [id number] [employer]. All rights reserved. This information is not [...] day 5 TERRANCE 12/07/2021 8:02 PM CDT [facility] Blood PERIPHERAL BLOOD / Unknown Venipuncture / Unknown 12/02/2021 3:59 PM CDT 12/02/2021 4:05 PM CDT Hannah Martínez PA-C LAB - MICROBIOLOGY O [place] Performing Organization Address [facility]/ZIP Co de Phone Number [facility] [address] [place] [address], [facility] [phone] * CULTURE BLOOD (12/02/2021 3:30 PM CDT) Culture No growth day 5 TERRANCE 12/07/2021 8:02 PM CDT [facility] Blood PERIPHERAL BLOOD / Unknown Venipuncture / Unknown 12/02/2021 3:30 PM CDT 12/02/2021 4:05 PM CDT Hannah Martínez PA-C LAB - MICROBIOLOGY O [place] Performing Organization Address [facility]/ZIP Co de Phone Number [facility] [address] [place] [address], [facility] [phone] * XR HUMERUS RIGHT 2VW OR MORE (12/02/2021 3:30 PM CDT) Anatomical Region Laterality Modality Upper Extremity Radiographic Lizeth ging 12/02/2021 3:30 PM CDT Narrative 12/02/2021 3:46 PM CDT PROCEDURE: ??XR HUMERUS RIGHT 2VW, DATE/TIME OF EXAM: ??12/02/2021 3:31 PM, LOCATION ??[facility] INDICATION: T82.9XXA: Central line complication, [...] Report dictated by Miracle Moody MD (residential property tax appraiser). Raquel Perez MD have personally reviewed and interpreted this examination/study. > Interpreting Provider: Raquel Cedillo MD on 12/02/2021 3:46 PM Procedure Note Raquel Cedillo MD - 12/02/2021 PROCEDURE: XR HUMERUS RIGHT 2VW, DATE/TIME OF EXAM: 12/02/2021 3:31 PM, LOCATION [facility] INDICATION: T82.9XXA: Central line complication, [...] Report dictated by Miracle Moody MD (residential property tax appraiser). Raquel Perez MD have personally reviewed and interpreted this examination/study. > Interpreting Provider: Raquel Cedillo MD on 12/02/2021 3:46 PM Hannah Martínez PA-C DIAGNOSTIC IMAGING O RDERABLES * (ABNORMAL) C-REACTIVE PROTEIN (12/02/2021 2:05 PM CDT) C-Reactive Protein 2.8(H) <=0.5 mg/dL 12/02/2021 2:49 PM CDT [facility] Blood BLOOD SPECIMEN / Unknown Venipuncture / Unknown 12/02/2021 2:05 PM CDT 12/02/2021 2:10 PM CDT Hannah Martínez PA-C LAB - CHEMISTRY ANGEL SPEARS [facility] [address] [place] [address], [facility] [phone] * LIPASE BLOOD (12/02/2021 12:31 PM CDT) Pathologist [facility] Lipase 19 8 - 78 U/L 12/02/2021 1:25 PM [facility] Blood BLOOD SPECIMEN / Unknown Venipuncture / Unknown 12/02/2021 12:31 PM CDT 12/02/2021 12:59 PM CDT Aaron Matias PA-C LAB - CHEMISTRY ANGEL SPEARS [facility] [address] [place] [address], [facility] [phone] * (ABNORMAL) COMPREHENSIVE METABOLIC PANEL (12/02/2021 12:31 PM CDT) [facility] BUN 16 7 - 26 mg/dL 12/02/2021 1:25 PM [facility] Creatinine 0.64 0.56 - 0.96 mg/dL 12/02/2021 1:25 PM [facility] Sodium 138 136 - 145 mmol/L 12/02/2021 1:25 PM [facility] Potassium 4.1 3.5 - 4.5 mmol/L 12/02/2021 1:25 PM [facility] Chloride 103 98 - 107 mmol/L 12/02/2021 1:25 PM [facility] CO2 25 22 - 29 mmol/L 12/02/2021 1:25 PM [facility] Glucose 264(H) 70 - 115 mg/dL 12/02/2021 1:25 PM [facility] Calcium 9.7 8.4 - 10.2 mg/dL 12/02/2021 1:25 PM [facility] Protein Total 8.3 6.0 - 8.3 g/dL 12/02/2021 1:25 PM [facility] Albumin 3.1(L) 3.4 - 5.0 g/dL 12/02/2021 1:25 PM [facility] Bilirubin Total 0.6 0.2 - 1.2 mg/dL 12/02/2021 1:25 PM [facility] Alkaline Phosphatase 84 40 - 150 U/L 12/02/2021 1:25 PM [facility] ALT 15 5 - 55 U/L 12/02/2021 1:25 PM [facility] AST 17 5 - 34 U/L 12/02/2021 1:25 PM [facility] Anion Gap 14 8 - 18 12/02/2021 1:25 PM [facility] BUN/Creatinine Ratio 25(H) 7 - 23 12/02/2021 1:25 PM [facility] Osmolality Calculated 296 270 - 300 mOsm/kg 12/02/2021 1:25 PM [facility] Albumin/Globulin Ratio 0.6(L) 1.1 - 2.3 12/02/2021 1:25 PM [facility] eGFR by CKD-EPI >90 >=90 mL/min/1.7 3 m2 12/02/2021 1:25 PM [facility] Blood BLOOD SPECIMEN / Unknown Venipuncture / Unknown 12/02/2021 12:31 PM CDT 12/02/2021 12:59 PM CDT Aaron Matias PA-C LAB - CHEMISTRY ANGEL SPEARS [facility] Organization Address City/State/ZIP Co de Phone Number [facility] [address] [place] [address], [facility] [phone] * CBC W AUTO DIFFERENTIAL (12/02/2021 12:31 PM CDT) WBC 9.7 3.5 - 10.5 10? 3 /uL 12/02/2021 1:04 PM [facility] RBC 4.42 3.80 - 5.20 10? 6 /uL 12/02/2021 1:04 PM [facility] Hemoglobin 12.7 12.0 - 15.6 g/dL 12/02/2021 1:04 PM [facility] Hematocrit 39.6 35.0 - 45.0 % 12/02/2021 1:04 PM [facility] MCV 89.6 80.7 - 98.3 fL 12/02/2021 1:04 PM [facility] MCH 28.7 26.7 - 34.0 pg 12/02/2021 1:04 PM [facility] MCHC 32.1 30.8 - 35.9 g/dL 12/02/2021 1:04 PM [facility] Platelet Count 301 150 - 400 10? 3 /uL 12/02/2021 1:04 PM [facility] RDW-SD 43.9 36.0 - 50.0 fL 12/02/2021 1:04 [facility] RDW-CV 13.2 11.2 - 14.8 % 12/02/2021 1:04 PM [facility] MPV 10.0 9.4 - 12.9 fL 12/02/2021 1:04 [facility] nRBC Absolute 0.00 0 10? 3 /uL 12/02/2021 1:04 [facility] nRBC Auto 0.0 0 /100 WBC 12/02/2021 1:04 PM [facility] Neutrophils % 61.4 35.0 - 70.0 % 12/02/2021 1:04 [facility] Lymphocytes % 27.9 20.0 - 43.0 % 12/02/2021 1:04 [facility] Monocytes % 6.8 5.0 - 13.0 % 12/02/2021 1:04 PM [facility] Eosinophils % 3.2 0.0 - 6.0 % 12/02/2021 1:04 PM [facility] Basophil % 0.3 0.0 - 2.0 % 12/02/2021 1:04 [facility] Neutrophils Absolute 5.94 1.60 - 7.00 10? 3 /uL 12/02/2021 1:04 PM [facility] Lymphocyte Absolute 2.70 1.10 - 3.90 10? 3 /uL 12/02/2021 1:04 PM [facility] Monocytes Absolute 0.66 0.26 - 1.07 10? 3 /uL 12/02/2021 1:04 PM T [facility] Eosinophils Absolute 0.31 0.00 - 0.47 10? 3 /uL 12/02/2021 1:04 PM T [facility] Basophils Absolute 0.03 0.00 - 0.08 10? 3 /uL 12/02/2021 1:04 PM T [facility] Immature Granulocytes % 0.4 0.0 - 1.0 % 12/02/2021 1:04 PM T [facility] Immature Granulocytes Absolute 0.04 12/02/2021 1:04 PM T [facility] Blood BLOOD SPECIMEN / Unknown Venipuncture / Unknown 12/02/2021 12:31 PM CDT 12/02/2021 12:58 PM CDT Aaron Matias PA-C LAB - HEMATOLOGY ORD ERABLES [address] [address], [facility] [phone] * (ABNORMAL) URINALYSIS REFLEX TO MICROSCOPIC NO CULTURE (12/02/2021 12:24 PM CDT) Color UA Yellow Straw, Yellow 12/02/2021 1:08 PM [facility] Clarity UA t Cloudy(A) Clear 12/02/2021 1:08 PM [facility] Specific [place] UA 1.023 1.005 - 1.030 12/02/2021 1:08 PM [facility] pH UA 5.0 5.0 - 8.0 pH 12/02/2021 1:08 PM [facility] Protein UA Negative Negative 12/02/2021 1:08 PM [facility] Glucose UA Negative Negative 12/02/2021 1:08 PM [facility] Ketone UA Negative Negative 12/02/2021 1:08 PM [facility] Bilirubin UA Negative Negative 12/02/2021 1:08 PM [facility] Blood UA 1+(A) Negative 12/02/2021 1:08 PM [facility] Nitrite UA Negative Negative 12/02/2021 1:08 PM CDT [facility] Leukocyte Esterase 1+(A) Negative 12/02/2021 1:08 PM CDT [facility] Urobilinogen UA Negative Negative mg/dL 12/02/2021 1:08 PM CDT [facility] RBC UA 11-20(A) None Seen, 0-2, 3-5 /HPF 12/02/2021 1:08 PM CDT [facility] WBC UA 0-5 None Seen, 0-5 /HPF 12/02/2021 1:08 PM T [facility] Bacteria UA Trace(A) None /HPF 12/02/2021 1:08 PM CDT [facility] Squamous Epithelial Cells UA 0-2 None Seen, 0-2, 3-5 /HPF 12/02/2021 1:08 PM CDT [facility] Mucus UA 1+ /LPF 12/02/2021 1:08 PM CDT [facility] Urine URINE SPECIMEN OBTAINED BY CLEAN CATCH PROCEDURE / Unknown Collection / Unknown 12/02/2021 12:24 PM CDT 12/02/2021 12:50 PM CDT Narrative [facility] - 12/02/2021 1:08 PM CDT Aaron Matias PA-C LAB - URINALYSIS ORD ERABLES [facility] [address] [place] [address], [facility] [phone] documented in this encounter Visit Diagnoses Diagnosis [...] RN) documented in this encounter Care Teams Tempering Oven Operator Relationship Specialty Start Date End Date Justen Gale MD PCP - General 07/05/21 documented as of this encounter
--- OUTSIDE RECORDS SUMMARY | 2024-04-26 06:55 | XMS_ITS | Encounter Summary ---
Author Organization [facility] Address [address] [facility] [place] [address] Care Team Providers Care Farm Butcher Name Role Phone Justen Gale MD Primary Care Provider [phone] Reason for Visit * Reason Onset Date Comments Transitions Of Care 11/08/2021 Encounter Details Date Type Department Care Team (Late st Contact Info) Description 11/08/2021 Telephone [facility]ORD[facility]ATION [address] [place] [phone] Bianca Daugherty, RN Transitions Of Care Social [...] RN - 11/08/2021 2:58 PM CDT Transition Web Operations Lead (TCC) 1-2 week post discharge follow-up contact by telephone: Patient with recent IP discharge from [facility] on 11/06/21 and had Basic Needs Assessment (BNA) score < 16 (score of 13). As such, Patient receiving 1-2 week follow-up call. This TCC contacted Karly Marques by telephone ([phone]) to complete 1-2 week post-discharge follow-up contact. 1) How are you feeling? Karly Maruqes said that she is not feeling too [...] have any questionsor concerns at this time. Karly Marques verbalized that she is not feeling [...] TCC encouraged Karly Marques to call this mortgage loan underwriter with questions, concerns, barriers to care, and/or additional resources ifneeded. Karly Marques verbalized understanding and agreement with plan. TCC will continue to provide post-discharge monitoring for 30 days post-discharge with target end date of program and intervention(s) set for 12/06/21. No follow-up needs identified or indicated at this time. Call Duration: 6 minutes Bianca Daugherty RN, BSN Transition Web Operations Lead Office: [phone] 11/08/2021 documented in this encounter Plan of Treatment Not on file documented as of this encounter Visit Diagnoses Not on filedocumented in this encounter Care Teams Farm Butcher Relationship Specialty Start Date End Date Justen Gale MD PCP - General 07/05/21 documented as of this encounter
--- OUTSIDE RECORDS SUMMARY | 2024-04-26 06:56 | XMS_ITS | Encounter Summary ---
Author Organization [facility] Address [address] [facility] [place] [address] Care Team Providers Care Sample Dye Mixer Name Role Phone Justen Gale MD Primary Care Provider [phone] Reason for Visit * Reason Onset Date Comments Follow-up 09/10/2021 Encounter Details Date Type Department Care Team (Late st Contact Info) Description 09/10/2021 Telephone [facility] [address] [facility] [place] [id number] Sonali Day Follow-up Social History Tobacco Use [...] filedocumented in this encounter Care Teams Sample Dye Mixer Relationship Specialty Start Date End Date Justen Gale MD PCP - General 07/05/21 documented as of this encounter
--- OUTSIDE RECORDS SUMMARY | 2024-04-26 06:56 | XMS_ITS | Encounter Summary ---
Author Organization [facility] Address [address] [facility] [place] [address] Care Team Providers Care Ending Machine Operator Name Role Phone Antoinette Zhu MD Primary Care Provider Encounter Details Date Type Department Care Team (Late st Contact Info) Description 01/27/2012 Hospital Outpatient Visit Historic [facility] [address] [place] [address] [phone] Noe Griffiths MD [address] [place] [address] OF HEMATOLOGY & MEDICAL ONCOLOGY [place], [place] [id number] Discharge Disposition: Home or Self Care Social [...] AM CDT) HONEY NONE DETECTED NONE DETECT [facility] 01/27/2012 11:5 7 AM CDT 01/27/2012 12:42 PM CDT Noe Griffiths MD LAB - CHEMISTRY ANGEL SPEARS Performing Organization Address [facility] Co de Phone Number [address] [phone] * IMMUNOFIXATION (01/27/2012 11:57 AM CDT) Immunofixation Result SEE NOTE [facility] Comment: 1. Serum immunofixation electrophoresis shows polyclonal IgG, IgA and IgM immunoglobulins. 2. No monoclonal immunoglobulins detected. ??Non-secretory myeloma (NSM) cannot be excluded on the basis of this result. ??Measurements of serum free kappa and lambda immunoglobulin light chains can identify up to 70% of patients with NSM. ?aMrce Jerez, Ph.D. 01/27/2012 11:5 7 AM CDT 01/27/2012 12:42 PM CDT Noe Griffiths MD LAB - CHEMISTRY ANGEL SPEARS Performing Organization Address [facility] Co de Phone Number [address] [phone] * LAMBDA LIGHT CHAINS FREE (01/27/2012 11:57 AM CDT) Immunoglobulin Lambda Free Light Chain 16.0 5.7 - 26.3 mg/L [facility] 01/27/2012 11:5 7 AM CDT 01/27/2012 12:42 PM CDT Noe Griffiths MD LAB - CHEMISTRY ANGEL SPEARS Performing Organization Address [facility] Co de Phone Number [address] [phone] * KAPPA/LAMBDA LITE CHAIN FREE PANEL (01/27/2012 11:57 AM CDT) Free [place] Quantitative 15.8 3.3 - 19.4 mg/L [facility] Free [place]/Lambda Ratio 0.99 0.26 - 1.65 [facility] Interpretation Free Lite SEE NOTE [facility] Comment: INTERPRETATION: These results do not exclude [...] - CHEMISTRY ANGEL SPEARS Performing Organization Address [facility]/ZIP Co de Phone Number [address] [phone] * RETIC COUNT (01/27/2012 11:57 AM CDT) Pathologist [facility] Reticulocyte % 1.7 0.3 - 2.0 % [facility] Reticulocyte Absolute 0.08 0.02 - 0.10 # [facility] 01/27/2012 11:5 7 AM CDT 01/27/2012 12:42 PM CDT Noe Griffiths MD LAB - HEMATOLOGY ORD NEGRITA Performing Organization Address City/[facility]/ZIP Co de Phone Number [address] [phone] * (ABNORMAL) CBC W AUTO DIFFERENTIAL (01/27/2012 11:57 AM CDT) WBC 8.8 3.5 - 10.5 10^3/uL [facility] RBC 4.71 3.90 - 5.00 10^6/uL [facility] Hemoglobin 13.2 12.0 - 15.5 g/dL [facility] Hematocrit 41.6 35.0 - 45.0 % [facility] MCV 88.3 81.0 - 97.0 FL [facility] MCH 28.0 28.0 - 34.0 PG [facility] MCHC 31.7(L) 32.0 - 36.0 G/DL [facility] Platelet 330 150 - 400 10^3/uL [facility] RDW 13.5 11.2 - 14.8 % [facility] RDW-SD 43.5 36 - 50 FL [facility] MPV 9.9 9.3 - 12.8 FL [facility] Neutrophils % 59.8 35.0 - 70.0 % [facility] Lymphocytes % 32.4 19.7 - 55.1 % [facility] Monocytes % 5.1 3 - 15 % [facility] Eosinophils % 2.5 0.0 - 6.0 % [facility] Basophils % 0.2 0.0 - 1.5 % [facility] Neutrophils Absolute 5.3 1.7 - 7.0 10^3/uL [facility] Lymphocyte Absolute 2.9 0.8 - 2.9 10^3/uL [facility] Monocytes Absolute 0.5 0.14 - 0.66 10^3/uL [facility] Eosinophils Absolute 0.22 0.00 - 0.22 10^3/uL [facility] Basophils Absolute 0.02 0.02 - 0.06 10^3/uL [facility] Differential Type AUTO DIFFERENTIAL [facility] 01/27/2012 11:5 7 AM CDT 01/27/2012 12:42 PM CDT Noe Griffiths MD LAB - HEMATOLOGY ORD NEGRITA [facility] Organization Address City/State/ZIP Co de Phone Number [facility] [address] [place] [address] * FERRITIN (01/27/2012 11:57 AM CDT) Ferritin 105 13 - 204 ng/mL [facility] 01/27/2012 11:5 7 AM CDT 01/27/2012 12:42 PM CDT Noe Griffiths MD LAB - CHEMISTRY ANGEL SPEARS [facility] [address] [place] [address], [facility] [phone] * TRANSFERRIN (01/27/2012 11:57 AM CDT) Transferrin 266 174 - 382 mg/dL [facility] Transferrin Saturation % 24 16 - 50 % [facility] 01/27/2012 11:5 7 AM CDT 01/27/2012 12:42 PM CDT Noe Griffiths MD LAB - CHEMISTRY ANGEL SPEARS Performing Organization Address [facility]/ZIP Co de Phone Number [facility] [address] [phone] * PROTEIN ELECTROPHORESIS WO INTERP BLOOD (01/27/2012 11:57 AM CDT) Interpretation Serum Protein SEE NOTE [facility] Comment: Serum protein electrophoresis shows characteristic bands [...] by calling the Special Chemistry Laboratory at [phone]. ?Marce Jerez, Ph.D. Protein Total 7.4 6.0 - 8.3 g/dL [facility] Albumin 3.8 3.3 - 5.6 G/DL [facility] Alpha-1 Globulins 0.2 0.1 - 0.3 G/DL [facility] Alpha-2 Globulins 0.8 0.5 - 1.0 G/DL [facility] Beta Globulins 1.1 0.6 - 1.1 G/DL [facility] Gamma Globulins 1.5 0.6 - 1.6 G/DL [facility] 01/27/2012 11:5 7 AM CDT 01/27/2012 12:42 PM CDT Noe Griffiths MD LAB - CHEMISTRY ANGEL SPEARS [address] [phone] * IRON BLOOD (01/27/2012 11:57 AM CDT) Iron 81 40 - 150 mcg/dL [facility] 01/27/2012 11:5 7 AM CDT 01/27/2012 12:42 PM CDT Noe Griffiths MD LAB - CHEMISTRY ANGEL SPEARS Performing Organization Address [facility] Co de Phone Number [address] [phone] * (ABNORMAL) C-REACTIVE PROTEIN (01/27/2012 11:57 AM CDT) C-Reactive Protein 1.9(H) <or= 0.5 mg/dL [facility] 01/27/2012 11:5 7 AM CDT 01/27/2012 12:42 PM CDT Noe Griffiths MD LAB - CHEMISTRY ANGEL SPEARS Performing Organization Address [facility] Co de Phone Number [address] [phone] * (ABNORMAL) ERYTHROCYTE SEDIMENTATION RATE (01/27/2012 11:57 AM CDT) Erythrocyte Sedimentation Rate [place]estergren 26(H) 0 - 20 MM/HR [facility] 01/27/2012 11:5 7 AM CDT 01/27/2012 12:42 PM CDT Noe Griffiths MD LAB - HEMATOLOGY NILES REES [address] [phone] * (ABNORMAL) URINALYSIS W/MICROSCOPIC NO CULTURE (01/27/2012 11:57 AM CDT) Color UA YELLOW STRW,YELLOW [facility] Clarity UA CLOUDY(A) CLEAR [facility] Specific [place] Urine 1.020 1.001 - 1.030 [facility] pH UA <= 5.0 5.0 - 8.0 [facility] Protein UA TRACE <20 mg/dL [facility] Glucose UA NEGATIVE NEGATIVE mg/dL [facility] Ketones NEGATIVE NEGATIVE mg/dL [facility] Bilirubin UA NEGATIVE NEGATIVE mg/dL [facility] Blood UA TRACE(A) NEGATIVE [facility] Nitrite UA NEGATIVE NEGATIVE [facility] Leukocyte Esterase TRACE(A) NEGATIVE [facility] Urobilinogen UA < 2.0 <2.0 mg/dL [facility] WBC Urine 7(H) 0 - 2 /HPF [facility] Bacteria Urine MANY(A) <OCCASIONAL /HPF [facility] Squamous Epithelial Cells UA 1 0 - 1 /HPF [facility] 01/27/2012 11:5 7 AM CDT 01/27/2012 12:42 PM CDT Noe Griffiths MD LAB - URINALYSIS ORD ERABLES [address] [phone] * LDH BLOOD (01/27/2012 11:57 AM CDT) Pathologist [facility] LDH Total 201 125 - 243 Units/L [facility] 01/27/2012 11:5 7 AM CDT 01/27/2012 12:42 PM CDT Noe Griffiths MD LAB - CHEMISTRY ORDE RABLES [address] [phone] * (ABNORMAL) COMPREHENSIVE METABOLIC PANEL (01/27/2012 11:57 AM CDT) Pathologist [facility] BUN 17 7 - 26 mg/dL [facility] Creatinine 0.6 0.6 - 1.2 mg/dL [facility] eGFR by MDRD > 60 ML/MIN [facility] Comment: Chronic kidney disease: ??<60 ml/min Kidney failure: ?<15 ml/min Based on BSA of 1.73m2. Sodium 139 136 - 145 mmol/L [facility] Potassium 3.7 3.5 - 4.5 mmol/L [facility] Chloride 106 98 - 107 mmol/L [facility] CO2 24 22 - 29 mmol/L [facility] Glucose 143(H) 70 - 115 mg/dL [facility] Calcium 9.4 8.4 - 10.2 mg/dL [facility] Protein Total 7.8 6.0 - 8.3 g/dL [facility] Albumin 3.2(L) 3.4 - 5.0 g/dL [facility] Bilirubin Total 0.6 0.2 - 1.2 mg/dL [facility] Alkaline Phosphatase 90 40 - 150 Units/L [facility] ALT 14 0 - 55 Units/L [facility] AST 13 5 - 34 Units/L [facility] Anion Gap 13 8 - 18 [facility] BUN/Creatinine Ratio 28(H) 7 - 23 [facility] Osmolality Calculation 277 270 - 300 mOsm/kg [facility] Albumin/Globulin Ratio 0.7(L) 1.1 - 2.3 [facility] 01/27/2012 11:5 7 AM CDT 01/27/2012 12:42 PM CDT Noe Griffiths MD LAB - CHEMISTRY ORDE [facility] Organization Address City/State/ZIP Co de Phone Number [address] [phone] * CK BLOOD (01/27/2012 11:57 AM CDT) CK Total 85 30 - 200 Units/L [facility] 01/27/2012 11:5 7 AM CDT 01/27/2012 12:42 PM CDT Noe Griffiths MD LAB - CHEMISTRY ANGEL SPEARS [address] [phone] * (ABNORMAL) TSH (01/27/2012 11:57 AM CDT) TSH 0.103(L) 0.350 - 4.940 uIU/mL [facility] 01/27/2012 11:5 7 AM CDT 01/27/2012 12:42 PM CDT Noe Griffiths MD LAB - CHEMISTRY ANGEL SPEARS Performing Organization Address [facility]/ZIP Co de Phone Number [address] [phone] * T4 FREE (01/27/2012 11:57 AM CDT) T4 Free 1.0 0.7 - 1.5 ng/dL [facility] 01/27/2012 11:5 7 AM CDT 01/27/2012 12:42 PM CDT Noe Griffiths MD LAB - CHEMISTRY ANGEL SPEARS Performing Organization Address City/[facility]/ZIP Co de Phone Number [address] [phone] * (ABNORMAL) T3 TOTAL (01/27/2012 11:57 AM CDT) T3 Total 167(H) 58 - 159 ng/dL [facility] 01/27/2012 11:5 7 AM CDT 01/27/2012 12:42 PM CDT Noe Griffiths MD LAB - CHEMISTRY ANGEL SPEARS [address] [phone] * (ABNORMAL) T3 FREE (01/27/2012 11:57 AM CDT) T3 Free 4.0(H) 1.7 - 3.7 pg/mL [facility] 01/27/2012 11:5 7 AM CDT 01/27/2012 12:42 PM CDT Noe Griffiths MD LAB - CHEMISTRY ANGEL SPEARS [facility] [address] [place] [address] documented in this encounter Visit Diagnoses Not on filedocumented in this encounter Care Teams Ending Machine Operator Relationship Specialty Start Date End Date Antoinette Zhu MD [address] [place] [phone] PCP - General 10/21/11 07/04/21 documented as of this encounter
--- OUTSIDE RECORDS SUMMARY | 2024-04-26 06:56 | XMS_ITS | Encounter Summary ---
Author Organization [facility] Address [address] [facility] [place] [address] Care Team Providers Care Auto Body Service Mechanic Name Role Phone Justen Gale MD Primary Care Provider [phone] Reason for Visit * Auth/Cert Specialty Diagnoses / Procedures Referred By Elyssa benavides Referred To Contact Diagnoses Diagnosis unknown Diagnosis unknown [R69] Procedures LAMINECTOMY THORACIC Referral ID Status Reason Start Date Expiration Date Visits Re quested Visits Authorized [id number] 1 1 Encounter Details Date Type Department Care Team (Late st Contact Info) Description 09/16/2021 7:36 AM CDT Anesthesia Event [facility] PERIOPERATIVE [address] [place] [address] Mariusz Drew MD [address] [facility] [place], [place] [id number] Dillon Zamora DO [address] [place] [address] Anesthesia Record Procedure Summary Procedure [...] Time : 744; Placed By: Mary Rinaldi APRN-DENTAL FINANCIAL COORDINATOR; Vent: mask not attempted; Induction: Modified Rapid [...] procedural Anesthetic Plan was discussed with the DENTAL FINANCIAL COORDINATOR. BMI, Height, Weight Tobacco History Estimated body [...] Repair ??? Knee Arthroscopy bilateral ??? Mastectomy FINISH MACHINE TENDER Status: No LMP recorded. unknown OB History [...] Event Date/Time: 09/16/2021 7:45 AM Procedure: intubation (47583). Procedure Section: Sedation: under general anesthesia. Indications [...] Anesthesia Transfer of Care - Mary Rinaldi, MARINE SURVEYOR-DENTAL FINANCIAL COORDINATOR - 09/16/2021 10:03 AM CDT ANESTHESIA TRANSFER [...] 09/16/21; Time: 744; Placed By: Mary Rinaldi APRN-DENTAL FINANCIAL COORDINATOR; Vent: mask not attempted; Induction: Modified Rapid [...] Event Date/Time: ??09/16/2021 7:45 AM Procedure: intubation ([id number]). Procedure Section: ?? Sedation: under general anesthesia. [...] Staff Section ? Anesthesia Provider: Mary Rinaldi APRN-DENTAL FINANCIAL COORDINATOR, Performed the procedure Additional Comments: Dentition and [...] Starting on Valeri 09/16/21 at 0744, Until Valrei 09/16/21 at 1003, Anesthesia Intra-op $ Given [...] mg documented in this encounter Care Teams Auto Body Service Mechanic Relationship Specialty Start Date End Date Justen Gale MD PCP - General 07/05/21 documented as of this encounter
--- OUTSIDE RECORDS SUMMARY | 2024-04-26 06:56 | XMS_ITS | Encounter Summary ---
Author Organization [facility] Address [address] [facility] [place] [address] Care Team Providers Care Shank Tapper Name Role Phone Antoinette Zhu MD Primary Care Provider Encounter Details Date Type Department Care Team (Latest Contact Info) Description 12/16/2011 Hospital Outpatient Visit Historic [facility] MRI OP [address] [place] [id number] Discharge Disposition: Home or Self Care Social [...] Lumbago documented in this encounter Care Teams Shank Tapper Relationship Specialty Start Date End Date Antoinette Zhu MD [address] [place] [phone] PCP - General 10/21/11 07/04/21 documented as of this encounter
--- OUTSIDE RECORDS SUMMARY | 2024-04-26 06:56 | XMS_ITS | Encounter Summary ---
Author Organization [facility] [employer] Address [address] [place] [address] Care Team Providers Care Shredding Machine Tender Name Role Phone Justen Gale MD Primary Care Provider Reason for Visit * Reason Comments WOUND INFECTION Patient a transfer f [facility] for neurosurgical stimulator complications and wound infection to right buttocks stage 1. POST-OP PROBLEM * Auth/Cert Specialty Diagnoses / Procedures Referred By Eylssa benavides Referred To Contact Referral ID Status Reason Start Date Expiration Date Visits Re quested Visits Authorized [id number] 1 1 Encounter Details Date Type Department Care Team (Late st Contact Info) Description 10/30/2021 3:15 PM CDT - 10/30/2021 6:50 PM CDT Surgery [facility] [address] [place] [address] Maxi Gregg MD [address] [facility] [address] [facility] [address] REMOVAL OF INFECTED SPINAL CORD STIMULATOR BATTERY AND PADDLE LEAD-LEVEL 4 @ 1114 Surgery Details Date/Time Status Location OR Service Patient Class Case Class Case Type Trauma Case? 10/30/2021 3:15 PM Posted [facility] OR OR 15 Neurosurgery Inpatient Level 4 [...] of this encounter Discharge Summaries * Ramon aJcobs MD - 11/06/2021 10:34 AM CDT Physician Discharge Summary Patient ID: Mohsen Marques [id number] 66 year old 1955 Admit date: 10/30/2021 [...] you were sent home on please call [phone], and ask for the Neurosurgery resident christmas tree contractor. Do not sign important papers or make [...] clinic appointment information call Shaun Larkin at [phone]. - Also, you can call Outpatient Reamer Hand at [phone]. 2) Please see Dr. Rodriguez (infectious disease) on 12/06 for follow-up of your infection. Your appointmenthas already been scheduled. - Please make time to come to the [facility] outpatient laboratory once every week to have [...] any questions about these instructions please call: [phone], ask for the Neurosurgery resident christmas tree contractor. This list of medications is preliminary and [...] Specialty: Family Medicine Relationship: PCP - General [facility] [address] Next Steps: Follow up Instructions: After discharge Maxi Gregg MD Specialty: Neurological Surgery [address] OF [facility] [address] Next Steps: Follow up Instructions: Please follow-up with Dr. Gregg in 1-2 weeks for suture removal. You will be contacted about your appointment Jazmyne Torres MD Specialty: Infectious Disease [address] [place] [address] Next Steps: Follow up Instructions: Please follow-up with Dr. Rodriguez in infectious disease on 12/06/21. Your appointment has already been scheduled. Contact information for after-discharge half-way Medical Care [facility] Service: Home Health Services [address] [place] [address] [facility] HOME CARE INTAKE Service: Home Health Services [address] [facility] [address] Ramon Jacobs MD 11/06/2021 10:49 AM documented [...] you were sent home on please call [phone], and ask for the Neurosurgery resident christmas tree contractor. Do not sign important papers or make [...] clinic appointment information call Normashannan Mccraryclaudia at [phone]. - Also, you can call Outpatient Reamer Hand at [phone]. 2) Please see Dr. Rodriguez (infectious disease) on 12/06 for follow-up of your infection. Your appointmenthas already been scheduled. - Please make time to come to the [facility] outpatient laboratory once every week to have [...] any questions about these instructions please call: [phone], ask for the Neurosurgery resident christmas tree contractor. documented in this encounter Medications at Time [...] Ross - 11/06/2021 2:13 PM CDT Discharge Reamer Hand received request from Dr. Soraida Jacobs to reschedule follow up appointment for Patient with Neurosurgery. This signwriter called [phone] and spoke with Abiola. Reamer Hand was able to obtain follow-up appointment for Patient with PERSONAL CARE AIDE Dasia Mendoza on Monday November 15, 2021 at 4:00 pm. No further follow-up needs from offset lithographic press setter indicated at this time. Shanthi Ross, Discharge Reamer Hand 11/08/2021 * Ashleigh Ontiveros RN - 11/06/2021 [...] questions, please contact the outpatient pharmacy at [phone]. Camila Varela PharmD [facility] at [address], First Floor [place], [place] [address] Hours of Operation Monday - Monday: 8:00am to 6:00pm Monday: 9:00am to 1:00pm Epic: [facility] *Ensure the patient and clinic's nearby ZIP codes box is unchecked* * Ashleigh Ontiveros RN - 11/06/2021 12:09 PM CDT Pt up in chair * Yeni Rivera RN - 11/06/2021 12:00 PM CDT Discharge Date: 11/06/21 Transportation at time of Discharge: Family Family Member who will transport: Yunior Velez Daughter ? [phone] Ambulance Arranged: n/a Home Health Care Accepting Agency: [facility]. Call to confirm [facility]. Agreed. Phone Number for Home Health Care Agency: [facility] Iv atb: [facility]: [phone] Date Services to begin: 11/10/21 Comments: Yeni Rivera Rn BSN [facility] Piggery WorkerPre Sales Architect: [phone] 11/06/2021 * Ramno Jacobs MD - 11/06/2021 11:51 AM CDT [...] root column stimulator placement on 09/16/21??presenting to [facility] on??10/30/2021??with worseningpain around right lumbar battery [...] recent surgery. Patient is on VTE prophylaxis. OK and PE very unlikely Plan: #postoperative wound [...] at week 2 (11/16). Please fax results [phone] (ID clinic: Dr. Augusto Torres). 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 Please fax results [phone] (ID clinic: Dr. Augusto Torres). - Will [...] Polk, PT - 11/05/2021 9:54 AM CDT [facility] Physical Medicine and Rehabilitation Physical Therapy Progress Note Patient: Mohsen Marques Med Record Number: [id number] Date of : 1955 Age: [age] year [...] Sit to Stand: Stand By Assist to LA. Gait: Weight Bearing Status: (WBAT) Distance Ambulated: [...] ascend/descent 2 steps with stand by assist An/Sqq 89(V)15 Sonar System Journeyman Goal(s): Patient to be independent with functional [...] and teaching has been completed with pt. [facility] is Monday,11/06/21. Pending PICC placement. Ok to discharge after PICC and dose of Ertapenam today if medically ready. Team notified. Theresa Aranda RN [phone] Care Coordination Nurse Piggery Worker * Marimar English RN - 11/04/2021 10:33 PM CDT Problem: Pain/Discomfort Goal: Patient exhibits reduced pain/discomfort as evidenced by pain scores Outcome: Progressing Goal: Patient uses pharmacological and non-pharmacological pain management strategies. Outcome: Progressing Goal: Patient verbalizes acceptable level of pain relief and ability to engage in desired activity. Outcome: Progressing * Lisa Neil PT - 11/04/2021 2:02 PM CDT [facility] Physical Medicine and Rehabilitation Physical Therapy Progress Note Patient: Mohsen Marques Med Record Number: [id number] Date of : 1955 Age: [age] year [...] will ascend/descent??2??steps with stand by assist ?? An/Sqq 89(V)15 Sonar System Journeyman Goal(s): Patient to be independent with functional [...] Jacobs MD - 11/04/2021 6:44 AM CDT [facility] Neurosurgery Daily Progress Note Mohsen Marques, 66 year old, female : 1955 CSN: [id number] Primary Care Physician: Justen Gale MD - [...] column stimulator placement on 09/16/21 presenting to [facility] on 10/30/2021 with worsening pain around [...] week 2 (11/16). Please fax results to [phone] (ID clinic: Dr. Augusto Torres). - Will [...] of Ertapenam tomorrow, 11/04/21. Theresa Aranda RN [phone] Care Coordination Nurse Piggery Worker * Wilian Navarro RN - 11/03/2021 11:08 [...] Polk, PT - 11/03/2021 10:50 AM CDT [facility] Department of Physical Medicine & Rehabilitation Progress Note Patient: Mohsen Marques Med Record Number: [id number] Date of : 1955 Age: [age] year old 11/03/21 1050 Missed Visit Missed Visit Procedure Off Floor Patient off the floor (PICC line) Pt off floor for PICC line. Will attempt back as schedule allows. * Ramon Jacobs MD - 11/03/2021 9:22 AM CDT [facility] Neurosurgery Daily Progress Note Mohsen Marques, 66 year old, female : 1955 CSN: [id number] Primary Care Physician: Justen Gale MD - [...] column stimulator placement on 09/16/21 presenting to [facility] on 10/30/2021 with worsening pain around [...] week 2 (11/16). Please fax results to [phone] (ID clinic: Dr. Augusto Torres). - Will [...] Polk, PT - 11/02/2021 10:50 AM CDT [facility] Physical Medicine and Rehabilitation Physical Therapy Progress Note Patient: Mohsen Marques Med Record Number: [id number] Date of : 1955 Age: [age] year [...] Sit to Stand: Stand By Assist to LA. Gait: Weight Bearing Status: (WBAT) Distance Ambulated: [...] ascend/descent 2 steps with stand by assist Senior Living Goal(s): Patient to be independent with functional [...] Jacobs MD - 11/02/2021 9:29 AM CDT [facility] Neurosurgery Daily Progress Note Mohsen Marques, 66 year old, female : 1955 CSN: [id number] Primary Care Physician: Justen Gale MD - [...] Strength is full bilaterally. Deltoid Bicep Tricep Purchasing Buyer Wrist Ext Finger ext Hip Flexor Quad [...] column stimulator placement on 09/16/21 presenting to [facility] on 10/30/2021 with worsening pain around [...] diff, and CMP. Please fax results to [phone] (ID clinic: Dr. Augusto Torres). - Will [...] restrepo MD - 11/02/2021 9:00 AM CDT [facility] Infectious Diseases Progress Note Admitted on: 10/30/2021 [...] in the??right??lower lumbar region (09/16/2021), who??presented to [facility] on??10/30/2021??as transfer from OSH ([facility]) for further management of infected battery [...] with increase in pain. She presented to [facility] ED again on 10/06, note purulent [...] aztreonamwere given. She was then transferred to [facility] for neurosurgery evaluation and management. ?? Upon arrival to [facility], Tmax 99.1, VSS, leukocytosis WBC of [...] and hypoplastic L5/S1 disc. 3. ??Advanced sacroiliitis. Aehf-qy-eackmbky pubic osteitis.??Mild spondylosis in the lumbar and [...] root column stimulator placement on 09/16/21??presenting to [facility] on??10/30/2021??with worseningpain and was found to [...] for suppression plan. If no need for AIRCRAFT GENERAL REPAIR MECHANIC penetration, can switch meropenem to ertapenem which [...] Arriaza OT - 11/01/2021 11:54 AM CDT [facility] Department of Physical Medicine & Rehabilitation Progress Note Patient: Mohesn Marques Med Record Number: [id number] Date of : 1955 Age: [age] year old New OT orders received & chart reviewed. Per OT evaluation & discharge on 10/31, was independent without skilled OT needs. Discussed with PT and RN and patient continues to be SBA/independent without OT needs. Plan: DC from OT caseload. * Isamar Polk, PT - 11/01/2021 9:34 AM CDT [facility] Physical Medicine and Rehabilitation Physical Therapy Progress Note Patient: Mohsen Marques Med Record Number: [id number] Date of : 1955 Age: [age] year [...] ascend/descent 2 steps with stand by assist Senior Living Goal(s): Patient to be independent with functional [...] Information Primary Emergency Contact: Jimmie Marques Address: [address] [place] [address] [place] [address] Relation: Spouse Secondary Emergency Contact: Yunior Velez Mobile Relation: Daughter Patient or field representative requests care coordination reach out to [...] Resources Provided: Not offered to the patient Piece Maker Referral: No If patient requires HHC at discharge, he/she requests: Will continue to follow. For any questions or needs please contact: Piggery Worker Name/Phone number: Theresa Aranda RN [phone] * Ramon Jacobs MD - 11/01/2021 8:27 AM CDT [facility] Neurosurgery Daily Progress Note Mohsen Marques, 66 year old, female : 1955 CSN: [id number] Primary Care Physician: Justen Gale MD - [...] Strength is full bilaterally. Deltoid Bicep Tricep Purchasing Buyer Wrist Ext Finger ext Hip Flexor Quad [...] column stimulator placement on 09/16/21 presenting to [facility] on 10/30/2021 with worsening pain around [...] well approximated Outcome: Progressing * Rosalinda Zaidi, [facility] - 10/31/2021 11:04 PM CDT Vancomycin Per [...] monitor patient's renal function. Please contact the [facility] pharmacy department ([phone]) with any questions. Rosalinda Zaidi RPH 10/31/2021 11:02 PM Resources: Vancomycin Protocol * Riri Daugherty RN - 10/31/2021 3:41 PM CDT NURIS MOSHER attempted TREE DRILLER unsuccessful. * Judi Alcantara OT - 10/31/2021 10:43 AM CDT [facility] Physical Medicine and Rehabilitation Occupational Therapy Initial Evaluation/Discharge Note Patient: Mohsen Marques Med Record Number: [id number] Date of : 1955 Age: [age] year [...] home now Who assists you at home?: Friends/Family;Water Treatment Plant Mechanic (Daughter is caregiver/choreworker) How often is assistance [...] Fair Activities of Daily Living Feeding: Complete Anderson (to drink water from cup; hand to mouth intact in BUE) Oral Facial Hygiene: Activity Does Not Occur Bathing: Stand By Assist (to complete hand hygiene at sink) Upper Body Dressing: Stand By Assist (to manage gown during toileting) Lower Body Dressing: Maximal Assistance (pt requires assist for LB dressing at baseline) Toileting: Stand By Assist;Complete Anderson (SBA for toilet transfer with bilateral grab [...] IP Occupational Therapy indicated at this time. An/Sqq 89(V)15 Sonar System Journeyman Goal(s): Patient to be independent with functional [...] Aranda PT - 10/31/2021 10:33 AM CDT [facility] Physical Medicine and Rehabilitation Physical Therapy Initial Evaluation Note Patient: Mohsen Marques Med Record Number: [id number] Date of : 1955 Age: [age] year [...] home now Who assists you at home?: Water Treatment Plant Mechanic;Friends/Family Oxygen at Home: CPAP at night Vision: [...] balance activities and monitoring of vitals Modified Erhard: EDUCATION: While performing PT, Patient was instructed [...] ascend/descent 2 steps with stand by assist Senior Living Goal(s): Patient to be independent with functional [...] Cobb MD - 10/31/2021 8:51 AM CDT [facility] Neurosurgery Daily Progress Note Mohsen Marques, 66 year old, female : 1955 CSN: [id number] Primary Care Physician: Justen Gale MD - [...] Strength is full bilaterally. Deltoid Bicep Tricep Purchasing Buyer Wrist Ext Finger ext Hip Flexor Quad [...] column stimulator placement on 09/16/21 presenting to [facility] on 10/30/2021 with worsening pain around [...] Cobb MD - 10/30/2021 9:15 PM CDT [facility] Neurosurgery Daily Progress Note Mohsen Marques, 66 year old, female : 1955 [facility]: [id number] Primary Care Physician: Justen Gale MD - [...] Strength is full bilaterally. Deltoid Bicep Tricep Purchasing Buyer Wrist Ext Finger ext Hip Flexor Quad [...] column stimulator placement on 09/16/21 presenting to [facility] on 10/30/2021 with worsening pain around [...] column stimulator placement on 09/16/21 presenting to [facility] on 10/30/2021 with worsening painaround right [...] column stimulator placement on 09/16/21 presenting to [facility] on 10/30/2021 with worsening pain around [...] FOR TOMORROW. JULIO NUNES RN REFERRAL LIAISON [facility] * Tete Nunes RN - 11/01/2021 5:11 PM CDT HOME CARE REFERRAL RECEIVED FOR PATIENT & IS PROCESSING. [facility] HAS APPROVED PATIENT FOR A START OF CARE. THANK YOU FOR THIS REFERRAL. JULIO NUNES RN REFERRAL LIAISON [facility] AT HOME * Aminah Oneill MD - 10/31/2021 10:45 AM CDTAssociated Order(s): IP CONSULT TO INFECTIOUS DISEASES [facility] Infectious Diseases Consultation Patient Name: Mohsen Marques 1955 Room: [facility] Date of Admission: 10/30/2021 Date of Service: [...] the??right??lower lumbar region (09/16/2021), who presented to [facility] on 10/30/2021 as transfer from OSH ([facility]) for further management of infected battery [...] with increase in pain. She presented to [facility] ED again on 10/06, note purulent [...] aztreonamwere given. She was then transferred to [facility] for neurosurgery evaluation and management. Upon arrival to [facility], Tmax 99.1, VSS, leukocytosis WBC of [...] IV q8h (10/30 ) Prior Abx at [facility] N/A Prior Abx at OSH IV [...] and hypoplastic L5/S1 disc. 3. ??Advanced sacroiliitis. Adql-wi-jlbozcul pubic osteitis.??Mild spondylosis in the lumbar and [...] team) Aminah Oneill M.D., PhD. Infectious Diseases (call manager) Pager [phone] documented in this encounter OR Notes * Brief Op Note - Eron Hill - 11/05/2021 3:02 PM CDT Vascular & Interventional Radiology Brief Post-Procedure Note Patient: Mohsen Marques Attending: Baudilio Hendrix MD Battery Recharger: Jovi Goode MD, [place] MS4 Diagnosis: Long-term access required for post-operation wound infection requiring long-term antibiotics Indication: Long-term IV antibiotics Procedure: Right upper extremity PICC placement Findings: Successful placement of a double lumen 5 Iraqi x 39 cm power PICC via the [...] generator pocket Surgeon(s) and Role: * Marysol, Seldovia Alecio, MD - Primary * Genaro Candelario [...] CDT ?Operative Report ?? PATIENT NAME:??MOHSEN MARQUES ?MR#:?[id number] DATE OF :?10/30/2021? CSN:??[id number] ?? DATE OF ADMISSION: ??10/30/2021?INTRAOP DATE OF OPERATION: ??10/30/2021? PREOPERATIVE DIAGNOSIS: Infection in the battery site of spinal stimulation system ?? 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 PROCEDURE PERFORMED: Removal of battery in the right??lower lumbar region and irrigation of the wound. ?? SURGEON: Maxi Gregg M.D. ?? JAVA SDET: Ronnie Mina MD ?ANESTHESIA: General anesthesia. ?? INTRAOPERATIVE BLOOD LOSS: 30??mL. ?? COMPLICATIONS: No intraoperative complications. ?? HARDWARE: [employer] - Fastly DR ?? PROCEDURE: The patient under anesthesia [...] lab specimens being discontinued by physician. Per installer technician, they will be discarded. * Yesi [...] per minute. No axis deviation is noted. MS interval within normal limits at 124 ms. [...] at the site of the laminectomies at t7/s1lmaal is a 5.9 by 2.5 by 3.9 [...] Report dictated by Alex Bradley MD (resident director). I, Dr. TYLOR PENNINGTON have personally [...] 3:09 AM CDT Patient a transfer from [facility] for neurosurgical stimulator complications and wound infection to right buttocks stage 1. * El Jefferson RN - 10/30/2021 3:06 AM CDT Bed: [facility] Expected date: Expected time: Means of arrival: Comments: [id number] [facility] tx 66 F/Infected spinal stimulator/VSS documented in [...] until 10/30/2021 GLUCOSE SCREEN - POCT (IP) [facility] Point of Care Testing STAT ONCE for [...] - 115 mg/dL 11/06/2021 11:39 AM CDT [facility] Specimen Type Arterial 11/06/2021 11:39 AM CDT [facility] Blood BLOOD SPECIMEN / Unknown 11/06/2021 11:34 AM CDT 11/06/2021 11:38 AM CDT Maxi Gregg MD LAB - POINT OF C ARE ORDERABLES [address] [address], [facility] [phone] * (ABNORMAL) GLUCOSE - POINT OF CARE (11/06/2021 7:40 AM CDT) Glucose WB/POC 152(H) 70 - 115 mg/dL 11/06/2021 7:45 AM CDT [facility] Specimen Type Cap Fingerstick 2021 7:45 AM CDT [facility] Blood BLOOD SPECIMEN / Unknown 11/06/2021 7:40 AM CDT 11/06/2021 7:45 AM CDT Maxi Gregg MD LAB - POINT OF C ARE ORDERABLES [address] [address], [place] [phone] * (ABNORMAL) GLUCOSE - POINT OF CARE (11/06/2021 3:09 AM CDT) Glucose WB/POC 172(H) 70 - 115 mg/dL 11/06/2021 3:13 AM CDT [facility] Specimen Type Cap Fingerstick 2021 3:13 AM CDT [facility] Blood BLOOD SPECIMEN / Unknown 11/06/2021 3:09 AM CDT 11/06/2021 3:13 AM CDT Maxi Gregg MD LAB - POINT OF ARE ORDERABLES [facility] [address] [place] [address], [place] [phone] * (ABNORMAL) GLUCOSE - POINT OF CARE (11/05/2021 8:10 PM CDT) Glucose WB/POC 171(H) 70 - 115 mg/dL 11/05/2021 8:15 PM CDT [facility] Specimen Type Cap Fingerstick 2021 8:15 PM CDT [facility] Blood BLOOD SPECIMEN / Unknown 11/05/2021 8:10 PM CDT 11/05/2021 8:14 PM CDT Maxi Gregg MD LAB - POINT OF ARE ORDERABLES [facility] [address] [place] [address], [place] [phone] * (ABNORMAL) GLUCOSE - POINT OF CARE (11/05/2021 5:00 PM CDT) Glucose WB/POC 180(H) 70 - 115 mg/dL 11/05/2021 5:05 PM CDT [facility] Specimen Type Cap Fingerstick 2021 5:05 PM CDT [facility] Blood BLOOD SPECIMEN / Unknown 11/05/2021 5:00 PM CDT 11/05/2021 5:05 PM CDT Maxi Gregg MD LAB - POINT OF C ARE ORDERABLES [facility] [address] [place] [address], [facility] [phone] * VAS BILATERAL VENOUS DUPLEX LE (11/05/2021 [...] Impression: Successful placement of 39 cm 5 Iraqi dual-lumen power PICC via the right basilic vein with the tip at the cavo-atrial junction. Note: The catheter can be used now. Dr. Hendrix was present and performed/supervised the entire procedure. Dictated by Jovi Goode MD (resident director) This report was approved ??by Jovi [...] Impression: Successful placement of 39 cm 5 Iraqi dual-lumen power PICC via the right basilic vein with the tip at the cavo-atrial junction. Note: The catheter can be used now. Dr. Hendrix was present and performed/supervised the entireprocedure. Dictated by Jovi Goode MD (resident director) This report was approved by Jovi Goode on 11/05/2021 3:06 PM . I, Dr. BAUDILIO HENDRIX have personally reviewed and interpreted this examination/study. This report was electronically signed by BAUDILIO HENDRIX on11/12/2021 12:02 PM . Maxi Gregg MD IR ORDERABLES * TROPONIN I (11/05/2021 1:50 PM CDT) Troponin I <0.010 <0.032 ng/mL 11/05/2021 2:34 PM CDT [facility] Blood BLOOD SPECIMEN / Unknown Lab Venipuncture / Unknown 11/05/2021 1:50 PM CDT 11/05/2021 1:59 PM CDT Maxi Gregg MD LAB - CHEMISTRY ORDERABLES [address] [address], [facility] [phone] * (ABNORMAL) D-DIMER (11/05/2021 1:50 PM CDT) [facility] D-Dimer Quantitative 1.28(H) <=0.50 mcg/mL FEU 11/05/2021 2:26 PM CDT [facility] Comment: In the absence of [...] COAGULATIO N ORDERABLES [facility]ORY [facility] [address] [place] [address], [facility] [phone] * EKG 12-LEAD (11/05/2021 1:25 PM CDT) Ventricular Rate 87 BPM [facility] MUSE Atrial Rate 87 BPM [facility] MUSE P-R Interval 142 ms [facility] MUSE QRS Duration ms 80 ms [facility] MUSE Q-T Interval ms 362 ms [facility] MUSE QTC Calculation (Bezet) 435 ms [facility] MUSE Calculated P Leary 7 degrees SL MUSE Calculated R Leary 1 degrees [facility] MUSE Calculated T Leary 59 degrees [facility] MUSE Interpretation EKG NORMAL SINUS RHYTHM NORMAL ECG WHEN COMPARED WITH ECG OF 30-oct-2021 NO SIGNIFICANT CHANGE WAS FOUND Confirmed by MD RAIN, ALLY ([id number]) on 11/05/2021 4:06:44 PM [facility] MUSE 11/05/2021 1:25 PM CDT 11/05/2021 4:06 PM CDT Maxi Gregg MD ECG ORDERABLES Performing Organization Address City/[facility]/ZIP Co de Phone Number [facility] MUSE * (ABNORMAL) GLUCOSE - POINT OF CARE (11/05/2021 12:08 PM CDT) Glucose WB/POC 171(H) 70 - 115 mg/dL 11/05/2021 11:05 PM CDT [facility] Specimen Type Cap Fingerstick 2021 11:05 PM CDT [facility] Blood BLOOD SPECIMEN / Unknown 11/05/2021 12:08 PM CDT 11/05/2021 11:05 PM CDT Maxi Gregg MD LAB - POINT OF C ARE ORDERABLES [facility] LABORATORY [facility] [address] [place] [address], [facility] [phone] * (ABNORMAL) GLUCOSE - POINT OF CARE (11/05/2021 8:10 AM CDT) Glucose WB/POC 154(H) 70 - 115 mg/dL 11/05/2021 8:11 AM CDT [facility] Specimen Type Cap Fingerstick 2021 8:11 AM CDT [facility] Blood BLOOD SPECIMEN / Unknown 11/05/2021 8:10 AM CDT 11/05/2021 8:10 AM CDT Maxi Gregg MD LAB - POINT OF ARE ORDERABLES [facility] [address] [place] [address], [place] [phone] * (ABNORMAL) GLUCOSE - POINT OF CARE (11/05/2021 1:40 AM CDT) Glucose WB/POC 146(H) 70 - 115 mg/dL 11/05/2021 1:41 AM CDT [facility] Specimen Type Cap Fingerstick 2021 1:41 AM CDT [facility] Blood BLOOD SPECIMEN / Unknown 11/05/2021 1:40 AM CDT 11/05/2021 1:41 AM CDT Maxi Gregg MD LAB - POINT OF ARE ORDERABLES Performing Organization Address City/[facility]/ZIP Co de Phone Number [address] [address], [place] [phone] * (ABNORMAL) GLUCOSE - POINT OF CARE (11/04/2021 9:11 PM CDT) Glucose WB/POC 180(H) 70 - 115 mg/dL 11/04/2021 9:12 PM CDT [facility] Specimen Type Cap Fingerstick 2021 9:12 PM CDT [facility] Blood BLOOD SPECIMEN / Unknown 11/04/2021 9:11 PM CDT 11/04/2021 9:12 PM CDT Maxi Gregg MD LAB - POINT OF ARE ORDERABLES [address] [address], [place] [phone] * (ABNORMAL) GLUCOSE - POINT OF CARE (11/04/2021 5:02 PM CDT) Glucose WB/POC 132(H) 70 - 115 mg/dL 11/04/2021 5:06 PM CDT [facility] Specimen Type Arterial 11/04/2021 5:06 PM CDT [facility] Blood BLOOD SPECIMEN / Unknown 11/04/2021 5:02 PM CDT 11/04/2021 5:06 PM CDT Maxi Gregg MD LAB - [facility] ARE ORDERABLES [facility] [address] [place] [address], [place] [phone] * (ABNORMAL) GLUCOSE - POINT OF CARE (11/04/2021 11:29 AM CDT) Glucose WB/POC 192(H) 70 - 115 mg/dL 11/04/2021 11:34 AM CDT [facility] Specimen Type Cap Fingerstick 2021 11:34 AM CDT [facility] Blood BLOOD SPECIMEN / Unknown 11/04/2021 11:29 AM CDT 11/04/2021 11:34 AM CDT Maxi Gregg MD LAB - [facility] ARE ORDERABLES [address] [address], [place] [phone] * (ABNORMAL) GLUCOSE - POINT OF CARE (11/04/2021 7:56 AM CDT) Glucose WB/POC 178(H) 70 - 115 mg/dL 11/04/2021 8:01 AM CDT [facility] Specimen Type Arterial 11/04/2021 8:01 AM CDT [facility] Blood BLOOD SPECIMEN / Unknown 11/04/2021 7:56 AM CDT 11/04/2021 8:01 AM CDT Maxi Gregg MD LAB - POINT OF ARE ORDERABLES [facility] [address] [place] [address], [place] [phone] * (ABNORMAL) GLUCOSE - POINT OF CARE (11/04/2021 3:24 AM CDT) Glucose WB/POC 182(H) 70 - 115 mg/dL 11/04/2021 3:25 AM CDT [facility] Specimen Type Arterial 11/04/2021 3:25 AM CDT [facility] Blood BLOOD SPECIMEN / Unknown 11/04/2021 3:24 AM CDT 11/04/2021 3:25 AM CDT Maxi Gregg MD LAB - [facility] ARE ORDERABLES Performing Organization Address City/[facility]/ZIP Co de Phone Number [address] [address], [place] [phone] * (ABNORMAL) GLUCOSE - POINT OF CARE (11/03/2021 8:30 PM CDT) Glucose WB/POC 209(H) 70 - 115 mg/dL 11/03/2021 8:31 PM CDT [facility] Specimen Type Arterial 11/03/2021 8:31 PM CDT [facility] Blood BLOOD SPECIMEN / Unknown 11/03/2021 8:30 PM CDT 11/03/2021 8:30 PM CDT Maxi Gregg MD LAB - [facility] ARE ORDERABLES [facility] [address] [place] [address], [place] [phone] * (ABNORMAL) GLUCOSE - POINT OF CARE (11/03/2021 6:09 PM CDT) Glucose WB/POC 153(H) 70 - 115 mg/dL 11/03/2021 6:14 PM CDT [facility] Specimen Type Cap Fingerstick 2021 6:14 PM CDT [facility] Blood BLOOD SPECIMEN / Unknown 11/03/2021 6:09 PM CDT 11/03/2021 6:14 PM CDT Maxi Gregg MD LAB - POINT OF ARE ORDERABLES [facility] [address] [place] [address], [place] [phone] * (ABNORMAL) GLUCOSE - POINT OF CARE (11/03/2021 12:13 PM CDT) Glucose WB/POC 185(H) 70 - 115 mg/dL 11/03/2021 12:19 PM CDT [facility] Specimen Type Cap Fingerstick 2021 12:19 PM CDT [facility] Blood BLOOD SPECIMEN / Unknown 11/03/2021 12:13 PM CDT 11/03/2021 12:18 PM CDT Maxi Gregg MD LAB - POINT OF ARE ORDERABLES [address] [address], [place] [phone] * (ABNORMAL) GLUCOSE - POINT OF CARE (11/03/2021 8:17 AM CDT) Glucose WB/POC 154(H) 70 - 115 mg/dL 11/03/2021 8:21 AM CDT [facility] Specimen Type Cap Fingerstick 2021 8:21 AM CDT [facility] Blood BLOOD SPECIMEN / Unknown 11/03/2021 8:17 AM CDT 11/03/2021 8:21 AM CDT Maxi Gregg MD LAB - POINT OF ARE ORDERABLES [address] [address], [place] [phone] * (ABNORMAL) GLUCOSE - POINT OF CARE (11/03/2021 2:07 AM CDT) Glucose WB/POC 198(H) 70 - 115 mg/dL 11/03/2021 6:20 AM CDT [facility] Specimen Type Cap Fingerstick 2021 6:20 AM CDT [facility] Blood BLOOD SPECIMEN / Unknown 11/03/2021 2:07 AM CDT 11/03/2021 6:20 AM CDT Maxi Gregg MD LAB - POINT OF ARE ORDERABLES [address] [address], [place] [phone] * (ABNORMAL) GLUCOSE - POINT OF CARE (11/02/2021 7:45 PM CDT) Glucose WB/POC 189(H) 70 - 115 mg/dL 11/02/2021 7:49 PM CDT [facility] Specimen Type Cap Fingerstick 2021 7:49 PM CDT [facility] Blood BLOOD SPECIMEN / Unknown 11/02/2021 7:45 PM CDT 11/02/2021 7:49 PM CDT Maxi Gregg MD LAB - POINT OF ARE ORDERABLES [address] [address], [place] [phone] * (ABNORMAL) GLUCOSE - POINT OF CARE (11/02/2021 5:01 PM CDT) Glucose WB/POC 170(H) 70 - 115 mg/dL 11/02/2021 5:06 PM CDT [facility] Specimen Type Cap Fingerstick 2021 5:06 PM CDT [facility] Blood BLOOD SPECIMEN / Unknown 11/02/2021 5:01 PM CDT 11/02/2021 5:06 PM CDT Maxi Gregg MD LAB - POINT OF ARE ORDERABLES [address] [address], [place] [phone] * (ABNORMAL) GLUCOSE - POINT OF CARE (11/02/2021 12:03 PM CDT) Glucose WB/POC 187(H) 70 - 115 mg/dL 11/02/2021 5:06 PM CDT [facility] Specimen Type Cap Fingerstick 2021 5:06 PM CDT [facility] Blood BLOOD SPECIMEN / Unknown 11/02/2021 12:03 PM CDT 11/02/2021 5:06 PM CDT Maxi Gregg MD LAB - POINT OF ARE ORDERABLES Performing Organization Address City/[facility]/ZIP Co de Phone Number [address] [address], [place] [phone] * (ABNORMAL) GLUCOSE - POINT OF CARE (11/02/2021 7:55 AM CDT) Glucose WB/POC 179(H) 70 - 115 mg/dL 11/02/2021 8:00 AM CDT [facility] Specimen Type Arterial 11/02/2021 8:00 AM CDT [facility] Blood BLOOD SPECIMEN / Unknown 11/02/2021 7:55 AM CDT 11/02/2021 8:00 AM CDT Maxi Gregg MD LAB - POINT OF ARE ORDERABLES [address] [address], [place] [phone] * (ABNORMAL) GLUCOSE - POINT OF CARE (11/02/2021 2:02 AM CDT) Glucose WB/POC 199(H) 70 - 115 mg/dL 11/02/2021 2:07 AM CDT [facility] Specimen Type Cap Fingerstick 2021 2:07 AM CDT [facility] Blood BLOOD SPECIMEN / Unknown 11/02/2021 2:02 AM CDT 11/02/2021 2:07 AM CDT Maxi Gregg MD LAB - POINT OF ARE ORDERABLES [facility] [address] [place] [address], [place] [phone] * (ABNORMAL) GLUCOSE - POINT OF CARE (11/01/2021 8:35 PM CDT) Glucose WB/POC 259(H) 70 - 115 mg/dL 11/01/2021 8:40 PM CDT [facility] Specimen Type Cap Fingerstick 2021 8:40 PM CDT [facility] Blood BLOOD SPECIMEN / Unknown 11/01/2021 8:35 PM CDT 11/01/2021 8:40 PM CDT Maxi Gregg MD LAB - POINT OF ARE ORDERABLES Performing Organization Address City/[facility]/ZIP Co de Phone Number [address] [address], [place] [phone] * (ABNORMAL) GLUCOSE - POINT OF CARE (11/01/2021 5:49 PM CDT) Glucose WB/POC 199(H) 70 - 115 mg/dL 11/01/2021 5:54 PM CDT [facility] Specimen Type Cap Fingerstick 2021 5:54 PM CDT [facility] Blood BLOOD SPECIMEN / Unknown 11/01/2021 5:49 PM CDT 11/01/2021 5:54 PM CDT Maxi Gregg MD LAB - POINT OF ARE ORDERABLES [facility] [address] [place] [address], [place] [phone] * CARDIAC EKG ORDER (11/01/2021 2:28 PM CDT) Narrative 11/01/2021 2:28 PM CDT Ordered by an unspecified provider. Scanned Document CARDIAC SERVICES ORD ERABLES * (ABNORMAL) GLUCOSE - POINT OF CARE (11/01/2021 12:34 PM CDT) Glucose WB/POC 207(H) 70 - 115 mg/dL 11/01/2021 12:39 PM CDT [facility] Specimen Type Arterial 11/01/2021 12:39 PM CDT [facility] Blood BLOOD SPECIMEN / Unknown 11/01/2021 12:34 PM CDT 11/01/2021 12:39 PM CDT Maxi Gregg MD LAB - POINT OF C ARE ORDERABLES [facility] [address] [place] [address], [place] [phone] * (ABNORMAL) GLUCOSE - POINT OF CARE (11/01/2021 7:38 AM CDT) Glucose WB/POC 193(H) 70 - 115 mg/dL 11/01/2021 7:44 AM CDT [facility] Specimen Type Arterial 11/01/2021 7:44 AM CDT [facility] Blood BLOOD SPECIMEN / Unknown 11/01/2021 7:38 AM CDT 11/01/2021 7:44 AM CDT Maxi Gregg MD LAB - POINT OF C ARE ORDERABLES [facility] [address] [place] [address], [place] [phone] * (ABNORMAL) GLUCOSE - POINT OF CARE (11/01/2021 2:06 AM CDT) Glucose WB/POC 247(H) 70 - 115 mg/dL 11/01/2021 2:11 AM CDT [facility] Specimen Type Cap Fingerstick 2021 2:11 AM CDT [facility] Blood BLOOD SPECIMEN / Unknown 11/01/2021 2:06 AM CDT 11/01/2021 2:11 AM CDT Maxi Gregg MD LAB - POINT OF C ARE ORDERABLES [address] [address], [place] [phone] * (ABNORMAL) C-REACTIVE PROTEIN (11/01/2021 1:22 AM CDT) Pathologist [facility] C-Reactive Protein 14.3(H) <=0.5 mg/dL 11/01/2021 2:27 AM CDT [facility] Blood BLOOD SPECIMEN / Unknown Lab Venipuncture / Unknown 11/01/2021 1:22 AM CDT 11/01/2021 1:41 AM CDT Maxi Gregg MD LAB - CHEMISTRY ORDERABLES [address] [address], [place] [phone] * (ABNORMAL) ERYTHROCYTE SEDIMENTATION RATE (11/01/2021 1:21 AM CDT) Pathologist [facility] Erythrocyte Sedimentation Rate Westergren 94(H) 0 - 30 MM/HR 11/01/2021 2:24 AM CDT [facility] Blood BLOOD SPECIMEN / Unknown Lab Venipuncture / Unknown 11/01/2021 1:21 AM CDT 11/01/2021 1:47 AM CDT Maxi Gregg MD LAB - HEMATOLOGY ORDERABLES [address] [address], [place] [phone] * VANCOMYCIN LEVEL TROUGH (10/31/2021 9:53 PM CDT) Vancomycin Trough 13.6 10.0 - 20.0 ug/mL 10/31/2021 10:20 PM CDT [facility] Blood BLOOD SPECIMEN / Unknown Venipuncture / Unknown 10/31/2021 9:53 PM CDT 10/31/2021 9:56 PM CDT Narrative [facility] - 10/31/2021 10:20 PM CDT See institution protocol. Gil Hill MD LAB - CHEMISTR Y ORDERABLES [address] [address], [facility] [phone] * (ABNORMAL) GLUCOSE - POINT OF CARE (10/31/2021 7:46 PM CDT) Glucose WB/POC 301(H) 70 - 115 mg/dL 10/31/2021 7:47 PM CDT [facility] Specimen Type Arterial 10/31/2021 7:47 PM CDT [facility] Blood BLOOD SPECIMEN / Unknown 10/31/2021 7:46 PM CDT 10/31/2021 7:47 PM CDT Maxi Gregg MD LAB - POINT OF C ARE ORDERABLES [address] [address], [place] [phone] * (ABNORMAL) GLUCOSE - POINT OF CARE (10/31/2021 5:04 PM CDT) Glucose WB/POC 243(H) 70 - 115 mg/dL 10/31/2021 5:09 PM CDT [facility] Specimen Type Cap Fingerstick 2021 5:09 PM CDT [facility] Blood BLOOD SPECIMEN / Unknown 10/31/2021 5:04 PM CDT 10/31/2021 5:09 PM CDT Maxi Gregg MD LAB - POINT OF ARE ORDERABLES Performing Organization Address City/[facility]/ZIP Co de Phone Number [address] [address], [place] [phone] * (ABNORMAL) GLUCOSE - POINT OF CARE (10/31/2021 12:59 PM CDT) [facility] Glucose WB/POC 282(H) 70 - 115 mg/dL 10/31/2021 1:04 PM CDT [facility] Specimen Type Cap Fingerstick 2021 1:04 PM CDT [facility] Blood BLOOD SPECIMEN / Unknown 10/31/2021 12:59 PM CDT 10/31/2021 1:04 PM CDT Maxi Gregg MD LAB - POINT OF ARE ORDERABLES Performing Organization Address [facility]/ZIP Co de Phone Number [address] [address], [place] [phone] * PTT [facility] (10/31/2021 11:55 AM CDT) [facility] APTT 34.1 23.0 - 38.4 Seconds 10/31/2021 1:41 PM CDT [facility] Comment:Suggested therapeuti c range for full dose I.V. unfractionated heparin therapy for venous thromboembolism is 71 to 109 seconds. Blood BLOOD SPECIMEN / Unknown Lab Venipuncture / Unknown 10/31/2021 11:55 AM CDT 10/31/2021 1:09 PM CDT Gil Hill MD LAB - COAGULAT ION ORDERABLES Performing Organization Address [facility]/ZIP Co de Phone Number [address] [address], [place] [phone] * (ABNORMAL) PT-INR [facility] (10/31/2021 11:55 AM CDT) [facility] PT 15.7(H) 12.1 - 14.8 Seconds 10/31/2021 1:40 PM [facility] INR 1.3 See Comment 10/31/2021 1:40 PM [facility] Comment:The suggested therap eutic range for standard coumadin (warfarin) therapy is an INR of 2.0-3.0. For high-risk patients (Mechanical Mitral Valve Prosthesis, etc.), the suggested prophylactic therapeutic range is an INR of 2.5-3.5. Blood BLOOD SPECIMEN / Unknown Lab Venipuncture / Unknown 10/31/2021 11:55 AM CDT 10/31/2021 1:09 PM CDT Gil Hill MD LAB - COAGULAT ION ORDERABLES [facility] [address] [place] [address], [facility] [phone] * (ABNORMAL) COMPREHENSIVE METABOLIC PANEL (10/31/2021 11:55 AM CDT) BUN 15 7 - 26 mg/dL 10/31/2021 1:35 PM [facility] Creatinine 0.66 0.56 - 0.96 mg/dL 10/31/2021 1:35 PM [facility] Sodium 137 136 - 145 mmol/L 10/31/2021 1:35 PM [facility] Potassium 4.1 3.5 - 4.5 mmol/L 10/31/2021 1:35 PM [facility] Chloride 103 98 - 107 mmol/L 10/31/2021 1:35 PM [facility] CO2 28 22 - 29 mmol/L 10/31/2021 1:35 PM [facility] Glucose 291(H) 70 - 115 mg/dL 10/31/2021 1:35 PM [facility] Calcium 9.1 8.4 - 10.2 mg/dL 10/31/2021 1:35 PM [facility] Protein Total 7.4 6.0 - 8.3 g/dL 10/31/2021 1:35 PM [facility] Albumin 2.6(L) 3.4 - 5.0 g/dL 10/31/2021 1:35 PM [facility] Bilirubin Total 0.5 0.2 - 1.2 mg/dL 10/31/2021 1:35 PM [facility] Alkaline Phosphatase 90 40 - 150 U/L 10/31/2021 1:35 PM [facility] ALT 14 5 - 55 U/L 10/31/2021 1:35 PM [facility] AST 8 5 - 34 U/L 10/31/2021 1:35 PM [facility] Anion Gap 10 8 - 18 10/31/2021 1:35 PM [facility] BUN/Creatinine Ratio 23 7 - 23 10/31/2021 1:35 PM [facility] Osmolality Calculated 296 270 - 300 mOsm/kg 10/31/2021 1:35 PM [facility] Albumin/Globulin Ratio 0.5(L) 1.1 - 2.3 10/31/2021 1:35 PM [facility] eGFR by CKD-EPI >90 >=90 mL/min/1.7 3 m2 10/31/2021 1:35 PM [facility] Blood BLOOD SPECIMEN / Unknown Lab Venipuncture / Unknown 10/31/2021 11:55 AM CDT 10/31/2021 1:07 PM T Gil Hill MD LAB - CHEMISTR Y ORDERABLES Performing Organization Address [facility] Co de Phone Number [facility] [address] [place] [address], [facility] [phone] * (ABNORMAL) CBC W/O DIFFERENTIAL (10/31/2021 11:55 AM CDT) WBC 18.5(H) 3.5 - 10.5 10? 3 /uL 10/31/2021 1:14 PM [facility] RBC 4.19 3.80 - 5.20 10? 6 /uL 10/31/2021 1:14 PM [facility] Hemoglobin 12.2 12.0 - 15.6 g/dL 10/31/2021 1:14 PM [facility] Hematocrit 38.2 35.0 - 45.0 % 10/31/2021 1:14 PM [facility] MCV 91.2 80.7 - 98.3 fL 10/31/2021 1:14 PM [facility] MCH 29.1 26.7 - 34.0 pg 10/31/2021 1:14 PM [facility] MCHC 31.9 30.8 - 35.9 g/dL 10/31/2021 1:14 PM [facility] Platelet Count 283 150 - 400 10? 3 /uL 10/31/2021 1:14 PM [facility] RDW-SD 46.6 36.0 - 50.0 fL 10/31/2021 1:14 PM [facility] RDW-CV 13.8 11.2 - 14.8 % 10/31/2021 1:14 PM [facility] MPV 10.2 9.4 - 12.9 fL 10/31/2021 1:14 PM [facility] nRBC Absolute 0.00 0 10? 3 /uL 10/31/2021 1:14 PM [facility] nRBC Auto 0.0 0 /100 WBC 10/31/2021 1:14 PM [facility] Blood BLOOD SPECIMEN / Unknown Lab Venipuncture / Unknown 10/31/2021 11:55 AM CDT 10/31/2021 1:06 PM T Gil Hill MD LAB - HEMATOLO GY ORDERABLES [facility] [address] [place] [address], [facility] [phone] * (ABNORMAL) HEMOGLOBIN A1C (10/31/2021 11:55 AM CDT) Hemoglobin A1c 7.8(H) <=5.6 % 11/01/2021 11:06 AM [facility] Estimated Average Glucose 177 mg/dL 11/01/2021 11:06 AM [facility] Comment: HbA1c Interpretation: Normal : < 5.7% Pre-diabetes: 5.7-6.4% Diabetes: Equal to or greater than 6.5% Test results diagnostic of diabetes should be repeated for confirmation. Treatment target values recommended by ADA and other clinical organizations should be used to evaluate metabolic control in patients. Reference: [place] [employer], Standards of Care in Diabetes [...] Hill MD LAB - CHEMISTR Y ORDERABLES [address] [address], [place] [phone] * (ABNORMAL) GLUCOSE - POINT OF CARE (10/31/2021 8:09 AM CDT) Glucose WB/POC 222(H) 70 - 115 mg/dL 10/31/2021 8:13 AM CDT [facility] Specimen Type Arterial 10/31/2021 8:13 AM CDT [facility] Blood BLOOD SPECIMEN / Unknown 10/31/2021 8:09 AM CDT 10/31/2021 8:13 AM CDT Maxi Gregg MD LAB - POINT OF C ARE ORDERABLES [address] [address], [place] [phone] * (ABNORMAL) COMPREHENSIVE METABOLIC PANEL (10/30/2021 9:00 PM CDT) BUN 13 7 - 26 mg/dL 10/30/2021 9:51 PM CDT [facility] Creatinine 0.68 0.56 - 0.96 mg/dL 10/30/2021 9:51 PM [facility] Sodium 137 136 - 145 mmol/L 10/30/2021 9:51 PM [facility] Potassium 4.6(H) 3.5 - 4.5 mmol/L 10/30/2021 9:51 PM [facility] Chloride 102 98 - 107 mmol/L 10/30/2021 9:51 PM [facility] CO2 25 22 - 29 mmol/L 10/30/2021 9:51 PM [facility] Glucose 294(H) 70 - 115 mg/dL 10/30/2021 9:51 PM [facility] Calcium 9.0 8.4 - 10.2 mg/dL 10/30/2021 9:51 PM [facility] Protein Total 7.2 6.0 - 8.3 g/dL 10/30/2021 9:51 PM [facility] Albumin 2.7(L) 3.4 - 5.0 g/dL 10/30/2021 9:51 PM [facility] Bilirubin Total 1.1 0.2 - 1.2 mg/dL 10/30/2021 9:51 PM [facility] Alkaline Phosphatase 74 40 - 150 U/L 10/30/2021 9:51 PM [facility] ALT 14 5 - 55 U/L 10/30/2021 9:51 PM [facility] AST 9 5 - 34 U/L 10/30/2021 9:51 PM [facility] Anion Gap 15 8 - 18 10/30/2021 9:51 PM [facility] BUN/Creatinine Ratio 19 7 - 23 10/30/2021 9:51 PM [facility] Osmolality Calculated 295 270 - 300 mOsm/kg 10/30/2021 9:51 PM [facility] Albumin/Globulin Ratio 0.6(L) 1.1 - 2.3 10/30/2021 9:51 PM [facility] eGFR by CKD-EPI >90 >=90 mL/min/1.7 3 m2 10/30/2021 9:51 PM [facility] Blood BLOOD SPECIMEN / Unknown Lab Venipuncture / Unknown 10/30/2021 9:00 PM CDT 10/30/2021 9:22 PM CDT Gil Hill MD LAB - CHEMISTR Y ORDERABLES [facility] [address] [place] [address], [facility] [phone] * (ABNORMAL) CBC W AUTO DIFFERENTIAL (10/30/2021 9:00 PM CDT) WBC 20.5(H) 3.5 - 10.5 10? 3 /uL 10/30/2021 9:28 PM CDT [facility] RBC 4.07 3.80 - 5.20 10? 6 /uL 10/30/2021 9:28 PM [facility] Hemoglobin 12.0 12.0 - 15.6 g/dL 10/30/2021 9:28 PM [facility] Hematocrit 37.2 35.0 - 45.0 % 10/30/2021 9:28 PM [facility] MCV 91.4 80.7 - 98.3 fL 10/30/2021 9:28 PM [facility] MCH 29.5 26.7 - 34.0 pg 10/30/2021 9:28 PM [facility] MCHC 32.3 30.8 - 35.9 g/dL 10/30/2021 9:28 PM [facility] Platelet Count 255 150 - 400 10? 3 /uL 10/30/2021 9:28 PM [facility] RDW-SD 47.0 36.0 - 50.0 fL 10/30/2021 9:28 PM [facility] RDW-CV 13.9 11.2 - 14.8 % 10/30/2021 9:28 PM [facility] MPV 9.6 9.4 - 12.9 fL 10/30/2021 9:28 PM [facility] nRBC Absolute 0.00 0 10? 3 /uL 10/30/2021 9:28 PM [facility] nRBC Auto 0.0 0 /100 WBC 10/30/2021 9:28 PM [facility] Neutrophils % 93.0(H) 35.0 - 70.0 % 10/30/2021 9:28 PM [facility] Lymphocytes % 3.8(L) 20.0 - 43.0 % 10/30/2021 9:28 PM [facility] Monocytes % 2.5(L) 5.0 - 13.0 % 10/30/2021 9:28 PM [facility] Eosinophils % 0.0 0.0 - 6.0 % 10/30/2021 9:28 PM [facility] Basophil % 0.2 0.0 - 2.0 % 10/30/2021 9:28 PM [facility] Neutrophils Absolute 19.09(H) 1.60 - 7.00 10? 3 /uL 10/30/2021 9:28 PM [facility] Lymphocyte Absolute 0.77(L) 1.10 - 3.90 10? 3 /uL 10/30/2021 9:28 PM [facility] Monocytes Absolute 0.52 0.26 - 1.07 10? 3 /uL 10/30/2021 9:28 PM [facility] Eosinophils Absolute 0.01 0.00 - 0.47 10? 3 /uL 10/30/2021 9:28 PM [facility] Basophils Absolute 0.04 0.00 - 0.08 10? 3 /uL 10/30/2021 9:28 PM [facility] Immature Granulocytes % 0.5 0.0 - 1.0 % 10/30/2021 9:28 PM [facility] Immature Granulocytes Absolute 0.10 10/30/2021 9:28 PM [facility] Blood BLOOD SPECIMEN / Unknown Lab Venipuncture / Unknown 10/30/2021 9:00 PM CDT 10/30/2021 9:22 PM [facility] Gil Hill MD LAB - HEMATOLO GY ORDERABLES [facility] [address] [place] [address], [facility] [phone] * (ABNORMAL) PT-INR [facility] (10/30/2021 9:00 PM CDT) PT 15.8(H) 12.1 - 14.8 Seconds 10/30/2021 9:47 PM CDT [facility] INR 1.3 See Comment 10/30/2021 9:47 PM CDT [facility] Comment:The suggested therap eutic range for standard coumadin (warfarin) therapy is an INR of 2.0-3.0. For high-risk patients (Mechanical Mitral Valve Prosthesis, etc.), the suggested prophylactic therapeutic range is an INR of 2.5-3.5. Blood BLOOD SPECIMEN / Unknown Lab Venipuncture / Unknown 10/30/2021 9:00 PM CDT 10/30/2021 9:22 PM CDT Gil Hill MD LAB - COAGULAT ION ORDERABLES [facility] [address] [place] [address], [facility] [phone] * PTT [facility] (10/30/2021 9:00 PM CDT) APTT 30.8 23.0 - 38.4 Seconds 10/30/2021 9:47 PM CDT [facility] Comment:Suggested therapeuti c range for full dose I.V. unfractionated heparin therapy for venous thromboembolism is 71 to 109 seconds. Blood BLOOD SPECIMEN / Unknown Lab Venipuncture / Unknown 10/30/2021 9:00 PM CDT 10/30/2021 9:22 PM CDT Gil Hill MD LAB - COAGULAT ION ORDERABLES [facility] [address] [place] [address], [place] [phone] * XR CHEST 1VW PORTABLE (10/30/2021 6:34 [...] Report dictated by Alex Bradley MD (resident director). Dr. TYLOR Perez have personally reviewed [...] Report dictated by Alex Bradley MD (resident director). Dr. TYLOR Perez have personally reviewed and interpreted this examination/study. This report was electronically signed by TYLOR PENNINGTON on 10/31/2021 11:18 AM . Gil Hill MD DIAGNOSTIC PATRICK GING ORDERABLES * (ABNORMAL) GLUCOSE - POINT OF CARE (10/30/2021 5:30 PM CDT) Glucose WB/POC 173(H) 70 - 115 mg/dL 10/30/2021 5:35 PM CDT [facility] Specimen Type Cap Fingerstick 2021 5:35 PM CDT [facility] Blood BLOOD SPECIMEN / Unknown 10/30/2021 5:30 PM CDT 10/30/2021 5:35 PM CDT Gil Hill MD LAB - POINT OF CARE ORDERABLES [facility] [address] [place] [address], [facility] [phone] * CULTURE FUNGUS OTHER+FUNGUS SMEAR (10/30/2021 4:51 PM CDT) Culture No fungus isolated [place] 11/29/2021 12:06 PM CDT [facility] MICROBIOLOGY Fungus Stain No yeast or hyphae seen 11/29/2021 12:06 PM CDT [facility]CROBI[facility] Microbiology SPECIMEN FROM WOUND / Unknown Collection / Unknown 10/30/2021 4:51 PM CDT 10/30/2021 5:24 PM CDT Maxi Gregg MD LAB - MICROBIOLO GY ORDERABLES Performing Organization Address City/[facility]/ZIP Co de Phone Number [facility] MICROBIOLOGY [address] [place] [address], [facility] [phone] * CULTURE ANAEROBE (10/30/2021 4:51 PM CDT) Culture No anaerobic organisms isolated [place] 11/04/2021 11:12 AM CDT [facility] MICROBIOLOGY Microbiology SPECIMEN FROM WOUND / Unknown Collection / Unknown 10/30/2021 4:51 PM CDT 10/30/2021 5:24 PM CDT Maxi Gregg MD LAB - MICROBIOLO GY ORDERABLES Performing Organization Address City/[facility]/ZIP Co de Phone Number [facility] MICROBIOLOG[facility] [address] [place] [address], [facility] [phone] * (ABNORMAL) CULTURE FLUID+GRAM STAIN (10/30/2021 4:51 PM CDT) Culture Heavy Escherichia coli(AA) [place] 11/03/2021 12:18 AM CDT [facility] Comment:Strain 1 Culture Heavy Escherichia coli(AA) [place] 11/03/2021 12:18 AM [facility] MICROBIOLOGY Comment:Strain 2 Gram Stain Heavy Polymorphonuclear cells(AA) 11/03/2021 12:18 AM [facility] MICROBIOLOGY Gram Stain Light Gram-negative bacilli(AA) 11/03/2021 12:18 AM [facility] [...] ug/mL: Susceptible Escherichia coli Trimethoprim-sulfame thoxa zole TERRACNE >=320 ug/mL: Resistant Comment:*Cefazolin TERRANCE of </ [...] Gregg MD LAB - MICROBIOLO GY ORDERABLES [facility] MICRO[facility] [address] [place] [address], [facility] [phone] * (ABNORMAL) GLUCOSE - POINT OF CARE (10/30/2021 2:48 PM CDT) Glucose WB/POC 170(H) 70 - 115 mg/dL 10/30/2021 2:53 PM CDT [facility] Specimen Type Cap Fingerstick 2021 2:53 PM CDT [facility] Blood BLOOD SPECIMEN / Unknown 10/30/2021 2:48 PM CDT 10/30/2021 2:53 PM CDT Gil Hill MD LAB - POINT OF CARE ORDERABLES [facility] [address] [place] [address], [facility] [phone] * (ABNORMAL) PT-INR [facility] (10/30/2021 1:46 PM CDT) PT 15.8(H) 12.1 - 14.8 Seconds 10/30/2021 2:21 PM CDT [facility] INR 1.3 See Comment 10/30/2021 2:21 PM CDT [facility] Comment:The suggested therap eutic range for standard coumadin (warfarin) therapy is an INR of 2.0-3.0. For high-risk patients (Mechanical Mitral Valve Prosthesis, etc.), the suggested prophylactic therapeutic range is an INR of 2.5-3.5. Blood BLOOD SPECIMEN / Unknown Venipuncture / Unknown 10/30/2021 1:46 PM CDT 10/30/2021 1:56 PM CDT Gil Hill MD LAB - COAGULAT ION ORDERABLES Performing Organization Address [facility]/ZIP Co de Phone Number [address] [address], [facility] [phone] * PTT [facility] (10/30/2021 1:46 PM CDT) APTT 30.7 23.0 - 38.4 Seconds 10/30/2021 2:22 PM CDT [facility] Comment:Suggested therapeuti c range for full dose I.V. unfractionated heparin therapy for venous thromboembolism is 71 to 109 seconds. Blood BLOOD SPECIMEN / Unknown Venipuncture / Unknown 10/30/2021 1:46 PM CDT 10/30/2021 1:56 PM CDT Gil Hill MD LAB - COAGULAT ION ORDERABLES Performing Organization Address [facility] Co de Phone Number [address] [address], [facility] [phone] * (ABNORMAL) URINALYSIS REFLEX TO MICROSCOPIC NO CULTURE (10/30/2021 1:46 PM CDT) Color UA Yellow Straw, Yellow 10/30/2021 2:04 PM CDT [facility] Clarity UA Clear Clear 10/30/2021 2:04 PM CDT [facility] Specific [place]lock UA 1.027 1.005 - 1.030 10/30/2021 2:04 PM CDT [facility] pH UA 5.0 5.0 - 8.0 pH 10/30/2021 2:04 PM CDT [facility] Protein UA Negative Negative 10/30/2021 2:04 PM CDT [facility] Glucose UA 1+(A) Negative 10/30/2021 2:04 PM CDT [facility] Ketone UA Negative Negative 10/30/2021 2:04 PM CDT [facility] Bilirubin UA Negative Negative 10/30/2021 2:04 PM CDT [facility] Blood UA 1+(A) Negative 10/30/2021 2:04 PM CDT [facility] Nitrite UA Negative Negative 10/30/2021 2:04 PM CDT [facility] Leukocyte Esterase Negative Negative 10/30/2021 2:04 PM CDT [facility] Urobilinogen UA Negative Negative mg/dL 10/30/2021 2:04 PM CDT [facility] RBC UA 6-10(A) None Seen, 0-2, 3-5 /HPF 10/30/2021 2:04 PM CDT [facility] WBC UA 6-10(A) None Seen, 0-5 /HPF 10/30/2021 2:04 PM CDT [facility] Squamous Epithelial Cells UA None Seen None Seen, 0-2, 3-5 /HPF 10/30/2021 2:04 PM CDT [facility] Mucus UA 2+ /LPF 10/30/2021 2:04 PM CDT [facility] Urine URINE SPECIMEN OBTAINED BY CLEAN CATCH PROCEDURE / Unknown Collection / Unknown 10/30/2021 1:46 PM CDT 10/30/2021 1:55 PM CDT Narrative [facility] - 10/30/2021 2:04 PM CDT Gil Hill MD LAB - URINALYS IS ORDERABLES [address] [address], [facility] [phone] * TYPE + SCREEN PANEL (10/30/2021 1:46 PM CDT) Antibody Screen NEG 2:40 PM CDT [facility] BLOOD BANK LAB ABO Rh O POS 10/30/2021 2:40 PM CDT [facility] B[facility]OD [facility] LAB Blood Bank BLOOD SPECIMEN / Unknown Venipuncture / Unknown 10/30/2021 1:46 PM CDT 10/30/2021 1:56 PM CDT Gil Hill MD LAB - BLOOD BA NK ORDERABLES Performing Organization Address [facility] Co de Phone Number [facility] BLOOD BANK LAB [address] [place] [address], [facility] [phone] * EKG 12-LEAD (10/30/2021 12:00 PM CDT) Ventricular Rate 82 BPM [facility] MUSE Atrial Rate 82 BPM [facility] MUSE P-R Interval 124 ms [facility] MUSE QRS Duration ms 88 ms [facility] MUSE Q-T Interval ms 372 ms [facility] MUSE QTC Calculation (Bezet) 434 ms [facility] MUSE Calculated P Leary 60 degrees SL MUSE Calculated R Leary 11 degrees SL MUSE Calculated T Leary 38 degrees [facility] MUSE Interpretation EKG NORMAL SINUS RHYTHM WITH SINUS ARRHYTHMIA NONSPECIFIC T WAVE ABNORMALITY ABNORMAL ECG NO PREVIOUS ECGS AVAILABLE Confirmed by MD Tirso. , Lizzy ([id number]) on 10/31/2021 6:58:26 PM [facility] MUSE 10/30/2021 12:0 0 PM CDT 10/31/2021 6:58 PM CDT Gil Hill MD ECG ORDERABLES Performing Organization Address [facility] de Phone Number [facility] MUSE * BLOOD TYPE VERIFICATION (10/30/2021 11:31 AM CDT) ABO Rh O POS 10/30/2021 2:2 7 PM CDT [facility] BLOOD BANK LAB Blood Bank BLOOD SPECIMEN / Unknown 10/30/2021 11:31 AM CDT 10/30/2021 1:58 PM CDT Della Sagastume MD LAB - BLOOD BANK ORD ERABLES Performing Organization Address [facility] Co de Phone Number [facility] BLOOD BANK LAB [address] [place] [address], [place] [phone] * CULTURE URINE (10/30/2021 8:03 AM CDT) Culture Urine <10,000 CFU/mL urogenital evelio TERRANCE 10/31/2021 11:39 AM CDT [facility] MICROBIOLOGY Urine URINE SPECIMEN OBTAINED BY CLEAN CATCH PROCEDURE / Unknown Collection / Unknown 10/30/2021 8:03 AM CDT 10/30/2021 8:10 AM CDT Lila Castillo MD LAB - MICROBIOLOGY O RDERABLES [facility] MICROBIOLOGY [address] [place] [address], [facility] [phone] * (ABNORMAL) URINALYSIS REFLEX TO MICROSCOPIC NO CULTURE (10/30/2021 8:03 AM CDT) Color UA Yellow Straw, Yellow 10/30/2021 8:20 AM [facility] Clarity UA Clear Clear 10/30/2021 8:20 AM [facility] Specific [place]lock UA 1.027 1.005 - 1.030 10/30/2021 8:20 AM [facility] pH UA 5.0 5.0 - 8.0 pH 10/30/2021 8:20 AM [facility] Protein UA Negative Negative 10/30/2021 8:20 AM [facility] Glucose UA 1+(A) Negative 10/30/2021 8:20 AM [facility] Ketone UA Negative Negative 10/30/2021 8:20 AM [facility] Bilirubin UA Negative Negative 10/30/2021 8:20 AM [facility] Blood UA 1+(A) Negative 10/30/2021 8:20 AM [facility] Nitrite UA Negative Negative 10/30/2021 8:20 AM [facility] Leukocyte Esterase Negative Negative 10/30/2021 8:20 AM [facility] Urobilinogen UA Negative Negative mg/dL 10/30/2021 8:20 AM [facility] RBC UA 6-10(A) None Seen, 0-2, 3-5 /HPF 10/30/2021 8:20 AM [facility] WBC UA 0-5 None Seen, 0-5 /HPF 10/30/2021 8:20 AM CDT [facility] LABORATORY [facility] Squamous Epithelial Cells UA None Seen None Seen, 0-2, 3-5 /HPF 10/30/2021 8:20 AM CDT [facility] Urine URINE SPECIMEN OBTAINED BY CLEAN CATCH PROCEDURE / Unknown Collection / Unknown 10/30/2021 8:03 AM CDT 10/30/2021 8:10 AM CDT Narrative [facility] - 10/30/2021 8:20 AM CDT Lila Castillo MD LAB - URINALYSIS ORD ERABLES [facility] [address] [place] [address], [facility] [phone] * CULTURE BLOOD (10/30/2021 6:41 AM CDT) Culture No growth day 5 [place] 11/04/2021 10:32 AM CDT [facility] MICROBIOLOGY Blood PERIPHERAL BLOOD / Unknown Venipuncture / Unknown 10/30/2021 6:41 AM CDT 10/30/2021 7:01 AM CDT Lila Castillo MD LAB - MICROBIOLOGY O RDANNEBLES Performing Organization Address City/[facility]/ZIP Co de Phone Number [facility] MICROBIOLOGY [address] [place] [address], [facility] [phone] * CULTURE BLOOD (10/30/2021 6:40 AM CDT) Culture No growth day 5 [place] 11/04/2021 10:32 AM CDT [facility] MICROBIOLOG[facility] Blood PERIPHERAL BLOOD / Unknown Venipuncture / Unknown 10/30/2021 6:40 AM CDT 10/30/2021 7:01 AM CDT Lila Castillo MD LAB - MICROBIOLOGY O RDERABLES Performing Organization Address City/[facility]/ZIP Co de Phone Number [facility] MICROBIOLOGY [address] [place] [address], [facility] [phone] * (ABNORMAL) C-REACTIVE PROTEIN (10/30/2021 5:33 AM CDT) [facility] C-Reactive Protein 14.2(H) <=0.5 mg/dL 10/30/2021 6:13 AM CDT [facility] Blood BLOOD SPECIMEN / Unknown Venipuncture / Unknown 10/30/2021 5:33 AM CDT 10/30/2021 5:43 AM CDT Lila Castillo MD LAB - CHEMISTRY ORDNicholas SPEARS Performing Organization Address City/[facility]/ZIP Co de Phone Number [address] [address], [facility] [phone] * (ABNORMAL) ERYTHROCYTE SEDIMENTATION RATE (10/30/2021 5:33 AM CDT) [facility] Erythrocyte Sedimentation Rate Westergren 107(H) 0 - 30 MM/HR 10/30/2021 6:13 AM CDT [facility] Blood BLOOD SPECIMEN / Unknown Venipuncture / Unknown 10/30/2021 5:33 AM CDT 10/30/2021 5:44 AM CDT Lila Castillo MD LAB - HEMATOLOGY ORD NEGRITA Performing Organization Address [facility]/ZIP Co de Phone Number [address] [address], [place] [phone] * (ABNORMAL) COMPREHENSIVE METABOLIC PANEL (10/30/2021 5:33 AM CDT) [facility] BUN 14 7 - 26 mg/dL 10/30/2021 6:10 AM CDT [facility] Creatinine 0.63 0.56 - 0.96 mg/dL 10/30/2021 6:10 AM CDT [facility] Sodium 135(L) 136 - 145 mmol/L 10/30/2021 6:10 AM T [facility] Potassium 4.1 3.5 - 4.5 mmol/L 10/30/2021 6:10 AM T [facility] Chloride 99 98 - 107 mmol/L 10/30/2021 6:10 AM T [facility] LABORATORY [facility] CO2 27 22 - 29 mmol/L 10/30/2021 6:10 AM [facility] Glucose 217(H) 70 - 115 mg/dL 10/30/2021 6:10 AM [facility] Calcium 9.2 8.4 - 10.2 mg/dL 10/30/2021 6:10 AM [facility] Protein Total 7.2 6.0 - 8.3 g/dL 10/30/2021 6:10 AM [facility] Albumin 2.8(L) 3.4 - 5.0 g/dL 10/30/2021 6:10 AM [facility] Bilirubin Total 1.3(H) 0.2 - 1.2 mg/dL 10/30/2021 6:10 AM [facility] Alkaline Phosphatase 77 40 - 150 U/L 10/30/2021 6:10 AM [facility] ALT 14 5 - 55 U/L 10/30/2021 6:10 AM [facility] AST 11 5 - 34 U/L 10/30/2021 6:10 AM [facility] Anion Gap 13 8 - 18 10/30/2021 6:10 AM [facility] BUN/Creatinine Ratio 22 7 - 23 10/30/2021 6:10 AM [facility] Osmolality Calculated 287 270 - 300 mOsm/kg 10/30/2021 6:10 AM [facility] Albumin/Globulin Ratio 0.6(L) 1.1 - 2.3 10/30/2021 6:10 AM [facility] eGFR by CKD-EPI >90 >=90 mL/min/1.7 3 m2 10/30/2021 6:10 AM [facility] Blood BLOOD SPECIMEN / Unknown Venipuncture / Unknown 10/30/2021 5:33 AM CDT 10/30/2021 5:44 AM [facility] Lila Castillo MD LAB - CHEMISTRY ANGEL SPEARS [facility] Organization Address City/State/ZIP Co de Phone Number [facility] [address] [place] [address], [facility] [phone] * (ABNORMAL) CBC W AUTO DIFFERENTIAL (10/30/2021 5:33 AM T) WBC 20.5(H) 3.5 - 10.5 10? 3 /uL 10/30/2021 5:56 AM [facility] RBC 4.28 3.80 - 5.20 10? 6 /uL 10/30/2021 5:56 AM [facility] Hemoglobin 12.5 12.0 - 15.6 g/dL 10/30/2021 5:56 AM [facility] Hematocrit 39.8 35.0 - 45.0 % 10/30/2021 5:56 AM [facility] MCV 93.0 80.7 - 98.3 fL 10/30/2021 5:56 AM [facility] MCH 29.2 26.7 - 34.0 pg 10/30/2021 5:56 AM [facility] MCHC 31.4 30.8 - 35.9 g/dL 10/30/2021 5:56 AM [facility] Platelet Count 298 150 - 400 10? 3 /uL 10/30/2021 5:56 AM [facility] RDW-SD 47.6 36.0 - 50.0 fL 10/30/2021 5:56 AM [facility] RDW-CV 14.1 11.2 - 14.8 % 10/30/2021 5:56 AM [facility] MPV 10.4 9.4 - 12.9 fL 10/30/2021 5:56 AM [facility] nRBC Absolute 0.00 0 10? 3 /uL 10/30/2021 5:56 AM [facility] nRBC Auto 0.0 0 /100 WBC 10/30/2021 5:56 AM [facility] Neutrophils % 82.3(H) 35.0 - 70.0 % 10/30/2021 5:56 AM [facility] Lymphocytes % 8.8(L) 20.0 - 43.0 % 10/30/2021 5:56 AM [facility] Monocytes % 7.4 5.0 - 13.0 % 10/30/2021 5:56 AM [facility] Eosinophils % 0.8 0.0 - 6.0 % 10/30/2021 5:56 AM [facility] Basophil % 0.2 0.0 - 2.0 % 10/30/2021 5:56 AM [facility] Neutrophils Absolute 16.83(H) 1.60 - 7.00 10? 3 /uL 10/30/2021 5:56 AM [facility] Lymphocyte Absolute 1.80 1.10 - 3.90 10? 3 /uL 10/30/2021 5:56 AM [facility] Monocytes Absolute 1.52(H) 0.26 - 1.07 10? 3 /uL 10/30/2021 5:56 AM [facility] Eosinophils Absolute 0.17 0.00 - 0.47 10? 3 /uL 10/30/2021 5:56 AM [facility] Basophils Absolute 0.04 0.00 - 0.08 10? 3 /uL 10/30/2021 5:56 AM [facility] Immature Granulocytes % 0.5 0.0 - 1.0 % 10/30/2021 5:56 AM [facility] Immature Granulocytes Absolute 0.11 10/30/2021 5:56 AM [facility] Blood BLOOD SPECIMEN / Unknown Venipuncture / Unknown 10/30/2021 5:33 AM CDT 10/30/2021 5:44 AM CDT Lila Castillo MD LAB - HEMATOLOGY ORD ERABLES Performing Organization Address City/State/[facility] Co de Phone Number [facility] [address] [place] [address], [facility] [phone] documented in this encounter Visit Diagnoses Diagnosis S/P insertion of spinal cord stimulator- Primary Preoperative examination Preoperative examination, unspecified S/P insertion of spinal cord stimulator Acute post-operative pain Chronic anticoagulation Encounter for long-term (current) use of anticoagulants Other acute postprocedural pain alf (current) use of anticoagulants Long-term (current) use [...] (pediatric) Type 2 diabetes mellitus without complication ([facility]) Preoperative examination Preoperative examination, unspecified Acute post-operative [...] Patient sleeping) [phone] ($ Given - Provider: Mariamr English RN)[phone] ($ Given - Provider: Kaylie [...] EVENT. documented in this encounter Care Teams Shredding Machine Tender Relationship Specialty Start Date End Date Justen Gale MD PCP - General 07/05/21 documented as of this encounter
--- OUTSIDE RECORDS SUMMARY | 2024-04-26 06:56 | XMS_ITS | Encounter Summary ---
Author Organization [facility] Address [address] [place] [address] Care Team Providers Care Signals Intelligence Superintendent Name Role Phone Justen Gale MD Primary Care Provider [phone] Reason for Visit * Reason Comments Rash [...] CDT - 10/06/2021 4:57 PM CDT Emergency [facility] EMERGENCY DEPARTMENT [address] [place] [phone] Epi Solitario MD [address] [place] [address] Eddie Khalil MD [address] [place] [address] History of laminectomy; Problem involving [...] Everywhere. * Post Op Wound Check, Infection (Icelandic) documented in this encounter Medications at Time [...] Ross - 10/06/2021 4:57 PM CDT Discharge Chemical Dependency Therapist received request from Rachel Campbell APRN to arrange follow-up appointment for Patient with Neurosurgery. This adjusto writer operator called [phone] and spoke with Abiola. Chemical Dependency Therapist was able to obtain follow-up appointment for Patient with EMERGENCY COMMUNICATIONS DISPATCHER Dasia Mendoza on Wednesday October 20, 2021 at 10:45 am. Nofurther follow-up needs from labeling strategist indicated at this time. Shanthi Ross, Discharge Chemical Dependency Therapist 10/07/2021 documented in this encounter Consult Notes * Rachel Campbell APRN-[facility] - 10/06/2021 11:47 AM CDTAssociated Order(s): [...] results for input(s): INR in the last 22459 hours. TEG: RADIOLOGY CT: Assessment: 66 year [...] results Case discussed with Dr Augusta Campbell, REVIEW COORDINATOR-ELECTRONIC GAME DEVELOPER 10/06/2021 11:53 AM documented in this encounter [...] stimulation system and placement of the battery ([employer]) in theright lower lumbar region on 09/16/2021 [...] day 5 TERRANCE 10/11/2021 7:02 PM CDT [facility] MICROBIOLOGY Blood PERIPHERAL BLOOD / Unknown Venipuncture / Unknown 10/06/2021 4:48 PM CDT 10/06/2021 4:50 PM CDT Epi Solitario MD LAB - MICROBIOLOGY O RDERABLES [facility] MICROBIOLOGY [address] [place] [address], [facility] [phone] * CULTURE BLOOD (10/06/2021 2:48 PM CDT) Pathologist [facility] Culture No growth day 5 TERRANCE 10/11/2021 7:[address] [facility] MICROBIOLOGY Blood PERIPHERAL BLOOD / Unknown Venipuncture / Unknown 10/06/2021 2:48 PM CDT 10/06/2021 3:00 PM CDT Epi Solitario MD LAB - MICROBIOLOGY O [place] Performing Organization Address [facility] Co de Phone Number [facility] MICROBIOLOGY [address] [place] [address], [facility] [phone] * (ABNORMAL) PT-INR [facility] (10/06/2021 2:48 PM CDT) [facility] PT 17.4(H) 12.1 - 14.8 Seconds 10/06/2021 3:26 PM CDT [facility] HOSPITAL INR 1.4 See Comment 10/06/2021 3:26 PM CDT [facility] Comment:The suggested therap eutic range for standard coumadin (warfarin) therapy is an INR of 2.0-3.0. For high-risk patients (Mechanical Mitral Valve Prosthesis, etc.), the suggested prophylactic therapeutic range is an INR of 2.5-3.5. Blood BLOOD SPECIMEN / Unknown Venipuncture / Unknown 10/06/2021 2:48 PM CDT 10/06/2021 3:05 PM CDT Epi Solitario MD LAB - COAGULATION OR DERABLES Performing Organization Address City/[facility]/ZIP Co de Phone Number [facility] [address] [place] [address], [place] [phone] * (ABNORMAL) COMPREHENSIVE METABOLIC PANEL (10/06/2021 2:48 PM CDT) Pathologist [facility] BUN 19 7 - 26 mg/dL 10/06/2021 3:30 PM [facility] Creatinine 0.69 0.56 - 0.96 mg/dL 10/06/2021 3:30 PM [facility] Sodium 138 136 - 145 mmol/L 10/06/2021 3:30 PM [facility] Potassium 4.2 3.5 - 4.5 mmol/L 10/06/2021 3:30 PM [facility] Chloride 101 98 - 107 mmol/L 10/06/2021 3:30 PM [facility] CO2 27 22 - 29 mmol/L 10/06/2021 3:30 PM [facility] Glucose 171(H) 70 - 115 mg/dL 10/06/2021 3:30 PM [facility] Calcium 10.3(H) 8.4 - 10.2 mg/dL 10/06/2021 3:30 PM [facility] Protein Total 9.0(H) 6.0 - 8.3 g/dL 10/06/2021 3:30 PM [facility] Albumin 3.8 3.4 - 5.0 g/dL 10/06/2021 3:30 PM [facility] Bilirubin Total 0.5 0.2 - 1.2 mg/dL 10/06/2021 3:30 PM [facility] Alkaline Phosphatase 86 40 - 150 U/L 10/06/2021 3:30 PM [facility] ALT 19 5 - 55 U/L 10/06/2021 3:30 PM [facility] AST 17 5 - 34 U/L 10/06/2021 3:30 PM [facility] Anion Gap 14 8 - 18 10/06/2021 3:30 PM [facility] BUN/Creatinine Ratio 28(H) 7 - 23 10/06/2021 3:30 PM [facility] Osmolality Calculated 292 270 - 300 mOsm/kg 10/06/2021 3:30 PM [facility] Albumin/Globulin Ratio 0.7(L) 1.1 - 2.3 10/06/2021 3:30 PM [facility] eGFR by CKD-EPI >90 >=90 mL/min/1.7 3 m2 10/06/2021 3:30 PM [facility] Blood BLOOD SPECIMEN / Unknown Venipuncture / Unknown 10/06/2021 2:48 PM CDT 10/06/2021 3:05 PM CDT Epi Solitario MD LAB - CHEMISTRY ANGEL Herrera Organization Address City/State/ZIP Co de Phone Number [facility] [address] [place] [address], [facility] [phone] * (ABNORMAL) CBC W AUTO DIFFERENTIAL (10/06/2021 2:48 PM CDT) WBC 11.5(H) 3.5 - 10.5 10? 3 /uL 10/06/2021 3:11 PM [facility] RBC 4.69 3.80 - 5.20 10? 6 /uL 10/06/2021 3:11 PM [facility] Hemoglobin 14.1 12.0 - 15.6 g/dL 10/06/2021 3:11 PM [facility] Hematocrit 43.5 35.0 - 45.0 % 10/06/2021 3:11 PM [facility] MCV 92.8 80.7 - 98.3 fL 10/06/2021 3:11 PM [facility] MCH 30.1 26.7 - 34.0 pg 10/06/2021 3:11 PM [facility] MCHC 32.4 30.8 - 35.9 g/dL 10/06/2021 3:11 PM [facility] Platelet Count 334 150 - 400 10? 3 /uL 10/06/2021 3:11 PM [facility] RDW-SD 46.9 36.0 - 50.0 fL 10/06/2021 3:11 PM [facility] RDW-CV 14.0 11.2 - 14.8 % 10/06/2021 3:11 PM [facility] MPV 9.5 9.4 - 12.9 fL 10/06/2021 3:11 PM [facility] nRBC Absolute 0.00 0 10? 3 /uL 10/06/2021 3:11 PM [facility] nRBC Auto 0.0 0 /100 WBC 10/06/2021 3:11 PM [facility] Neutrophils % 71.9(H) 35.0 - 70.0 % 10/06/2021 3:11 PM [facility] Lymphocytes % 17.4(L) 20.0 - 43.0 % 10/06/2021 3:11 PM [facility] Monocytes % 6.4 5.0 - 13.0 % 10/06/2021 3:11 PM [facility] Eosinophils % 3.7 0.0 - 6.0 % 10/06/2021 3:11 PM [facility] Basophil % 0.3 0.0 - 2.0 % 10/06/2021 3:11 PM [facility] Neutrophils Absolute 8.25(H) 1.60 - 7.00 10? 3 /uL 10/06/2021 3:11 PM [facility] Lymphocyte Absolute 2.00 1.10 - 3.90 10? 3 /uL 10/06/2021 3:11 PM [facility] Monocytes Absolute 0.73 0.26 - 1.07 10? 3 /uL 10/06/2021 3:11 PM [facility] Eosinophils Absolute 0.42 0.00 - 0.47 10? 3 /uL 10/06/2021 3:11 PM [facility] Basophils Absolute 0.03 0.00 - 0.08 10? 3 /uL 10/06/2021 3:11 PM [facility] Immature Granulocytes % 0.3 0.0 - 1.0 % 10/06/2021 3:11 PM [facility] Immature Granulocytes Absolute 0.04 10/06/2021 3:11 PM [facility] Blood BLOOD SPECIMEN / Unknown Venipuncture / Unknown 10/06/2021 2:48 PM CDT 10/06/2021 3:04 PM T Epi Solitario MD LAB - HEMATOLOGY ORD ERABLES [facility] [address] [place] [address], [facility] [phone] documented in this encounter Visit Diagnoses Diagnosis History of laminectomy Other postprocedural status Problem involving surgical incision Other postprocedural complications and disorders of nervous system Other specified postprocedural states Infection following a procedure, other surgical site, initial encounter documented in this encounter Care Teams Signals Intelligence Superintendent Relationship Specialty Start Date End Date Justen Gale MD PCP - General 07/05/21 documented as of this encounter
--- OUTSIDE RECORDS SUMMARY | 2024-04-26 06:56 | XMS_ITS | Encounter Summary ---
Author Organization [facility] Address [address] [place] [address] Care Team Providers Care Measurement Superintendent Name Role Phone Antoinette Zhu MD Primary Care Provider Encounter Details Date Type Department Care Team (Latest Contact Info) Description 12/16/2011 Hospital Outpatient Visit Historic [facility] [address] [place] [address] Nixon Moreno MD [address] [place] [address] Discharge Disposition: Home or Self Care Social [...] on filedocumented in this encounter Care Teams Measurement Superintendent Relationship Specialty Start Date End Date Antoinette Zhu MD [address] [place] [address] [address] [place] [phone] PCP - General 10/21/11 07/04/21 documented as of this encounter
--- OUTSIDE RECORDS SUMMARY | 2024-04-26 06:56 | XMS_ITS | Encounter Summary ---
Author Organization [facility] Address [address] [facility] [place] [address] Care Team Providers Care Marketing Support Manager Name Role Phone Justen Gale MD Primary Care Provider [phone] Reason for Visit * Auth/Cert Specialty Diagnoses / Procedures Referred By Elyssa t Referred To Contact Diagnoses Diagnosis unknown Diagnosis unknown [R69] Procedures LAMINECTOMY THORACIC Referral ID Status Reason Start Date Expiration Date Visits Re quested Visits Authorized [id number] 1 1 Encounter Details Date Type Department Care Team (Latest Contact Info) Description 09/16/2021 5:38 AM CDT - 09/16/2021 3:21 PM CDT Hospital Encounter [facility] INTRAOP [address] [place] [address] Maxi Gregg MD [address] [phone] Surgery General Discharge Disposition: Home or Self [...] (one) tablet by mouth DAILY 04/20/2017 Lancets (Vital TherapiesTOUCH DELICA PLUS 33G EXTRA FINE LANCET) USE FOUR TIMES DAILY 03/10/2021 V[employer] ULTRA test strip 4 times daily 02/01/2021 [...] - 09/16/2021 8:17 AM CDT [facility] ?Operative Report ?? PATIENT NAME: MOHSEN SALAZAR ?MR#:??[id number] DATE OF :?1955?CSN:?[id number] ?? DATE OF ADMISSION: ??09/16/2021?ROOM#: ??HC ?INTRAOP [...] ?? COMPLICATIONS: No intraoperative complications. ?? HARDWARE: [email or web address] DR ?? PROCEDURE: The patient under anesthesia [...] Needs ## LATEX ALLERGY## NEEDS C-ARM, SPECIALTY PHYSICIAN ASSISTANT NOTIFIED PER OFFICE(JEY) WITH A CONFIRMATION # [id number]- 08/16 , SAVAGE REP (RODRÍGUEZ [phone]) NOTIFIED PER OFFICE(JEY) 08/16 TM / SURGEON WANTS PATIENT IN PRONE POSITION FOR PROCEDURECase confi rmed with Rodríguez [id number] documented in this encounter Results * CARDIAC RHYTHM STRIP ORDER (09/22/2021 11:41 PM CDT) Narrative 09/22/2021 11:41 PM CDT Ordered by an unspecified provider. Scanned Document CARDIAC SERVICES ORD ERABLES * (ABNORMAL) GLUCOSE - POINT OF CARE (09/16/2021 10:03 AM CDT) Glucose WB/POC 152(H) 70 - 106 mg/dL 09/16/2021 1:04 PM CDT [facility] Specimen Type Cap Fingerstick 2021 1:04 PM CDT [facility] Blood BLOOD SPECIMEN / Unknown 09/16/2021 10:03 AM CDT 09/16/2021 1:04 PM CDT Maxi Gregg MD LAB - POINT OF ARE ORDERABLES Performing Organization Address [facility] Co de Phone Number [facility] [address] [place] [phone] * [place] GIANFRANCO SURGERY (09/16/2021 9:30 AM CDT) Narrative [facility] RADIOLOG[facility] - 09/16/2021 2:19 PM CDT For details of this study, please see the providers note. Maxi SPEARS Performing Organization Address [facility] Co de Phone Number [facility] RADIOLOG[facility] [address] [place] [phone] * (ABNORMAL) GLUCOSE - POINT OF CARE (09/16/2021 7:12 AM CDT) Pathologist [facility] Glucose WB/POC 165(H) 70 - 106 mg/dL 09/17/2021 5:24 AM CDT [facility] Specimen Type Venous 09/17/2021 5:24 AM CDT [facility] Blood BLOOD SPECIMEN / Unknown 09/16/2021 7:12 AM CDT 09/17/2021 5:24 AM CDT Maxi Gregg MD LAB - POINT OF ARE ORDERABLES Performing Organization Address [facility] Co de Phone Number [facility] [address] [place] [phone] documented in this encounter Visit Diagnoses Diagnosis [...] 09/16/2021 10:05 AM CDT 50 mcg HYDROcodone-acetaminophen (Davidson) 7.5-325 MG tablet 1 tablet 1 tablet, [...] ($ New Bag/Syringe - Provider: Mary Rinaldi, ZAMZAM-ROTARY SAW OPERATOR) lactated ringers infusion at 125 mL/hr, Intravenous, CONTINUOUS, Starting on Valeri 09/16/21 at 1000, Until Valeri 09/16/21 at 1622, PACU 1000 (Due) PRN Medication Order 09/14/2021 09/15/2021 09/16/2021 0.9% NaCl irrigation (SO) solution (CANCELED) PRN, Starting on Valeri 09/16/21 at 0933, Until Valeri 09/16/21 at 0955, Intra-op 0933 ($ Given - Prov ider: Maxi Gregg MD - Comment: irrisept)0934 ($ Given - Provider: Maix Gregg MD) bupivacaine liposome (Exparel) 1.3 % [...] Given - Provider: Brian Mcintosh RN) HYDROcodone-acetaminophen (Davidson) 7.5-325 MG tablet 1 tablet 1 tablet, [...] EPINEPHrine 1:100,000 injection (CANCELED) PRN, Starting on Vlaeri 09/16/21 at 0932, Until Valeri 09/16/21 at [...] site) documented in this encounter Care Teams Marketing Support Manager Relationship Specialty Start Date End Date Justen Gale MD PCP - General 07/05/21 documented as of this encounter
--- OUTSIDE RECORDS SUMMARY | 2024-04-26 06:56 | XMS_ITS | Encounter Summary ---
Author Organization [facility] Address [address] [place] [address] Care Team Providers Care Health Promotion Manager Name Role Phone Antoinette Zhu MD Primary Care Provider Encounter Details Date Type Department Care Team (Latest Contact Info) Description 04/20/2017 Emergency Department Historic [facility] EMERGENCY DEPARTMENT [address] [place] [address] Eddie Khalil MD [address] [place] [address] Discharge Disposition: Home or Self [...] Comments Blood Pressure 108/50 04/20/2017 6:35 AM BEE BREEDER Pulse 87 04/20/2017 6:36 AM BEE BREEDER Temperature 36.4 ??C (97.5 ??F) 04/20/2017 1:01 AM CS T Respiratory Rate 18 04/20/2017 1:01 AM BEE BREEDER Oxygen Saturation 100% 04/20/2017 6:36 AM BEE BREEDER Inhaled Oxygen Concentration - - Weight 127 kg (280 lb) 04/20/2017 1:01 AM BEE BREEDER Height 154.9 cm (5' 1 ) 04/20/2017 1:01 AM BEE BREEDER Body Mass Index 52.91 04/20/2017 1:01 AM BEE BREEDER documented in this encounter ED Notes * Eddie Khalil MD - 04/20/2017 4:21 AM CST ED Provider Notes Signed by Eddie Rizvi MD on 04/20/2017 7:03 AM Author: Eddie Rizvi MD Service: Emergency Author Type: Physician Date of Service: 04/20/2017 4:21 AM Filed: 04/20/2017 7:03 AM Note Type: ED Provider Notes Status: Signed Head Bander And Liner Operator: Eddie Rizvi MD (Physician) Cosign Notation: I [...] placed 2 weeks ago by urology in [place]. Has a pain physician appointment in May [...] Procedure Abnormality Status --------- ------ CBC WITH DIFFERENTIAL[[id number]] Abnormal Final result Please view results for these tests on the individual orders. I was present for the pinzon portion(s) of the following procedures: N/A Time spent providing critical care services to the patient (excluding time spent by the resident and time spent performing separately billable procedures): NONE minutes. Eddie Rizvi MD 04/20/17 0703 BREEDER * Kelli Almendarez MD - 04/20/2017 4:14 AM CST ED Provider Notes Signed by Kelli Almendarez MD on 04/20/2017 6:31 AM Author: Kelli Almendarez MD Service: Emergency Author Type: Resident Date of Service: 04/20/2017 4:14 AM Filed: 04/20/2017 6:31 AM Note Type: ED Provider Notes Status: Signed Head Bander And Liner Operator: Kelli Almendarez MD (Resident) Cosigner: Eddie Rizvi MD at 04/20/2017 7:03 AM History Chief Complaint Patient presents with ??? Abdominal Pain Renal stone scoped and stented earlier this month, continuing abd pain since, nausea and vomiting, diffuse lower abd pain, 10lb weight loss in 2 weeks. Hx breast ca cleared in 2015 HPI History obtained from: pt Varitype Operator used: no 61 y.o. female with hx [...] KNEE ARTHROSCOPY bilateral ??? HX MASTECTOMY ??? FL DELIVERY ONLY ??? FL LAP,CHOLECYSTECTOMY Family History Problem Relation Age of [...] Procedure Abnormality Status --------- ------ CBC WITH DIFFERENTIAL[[id number]] Abnormal Final result Please view results for these tests on the individual orders. CT Abdomen And Pelvis W IV Contrast (Results Pending) Medications Given: Medications ondansetron (ZOFRAN) injection 4 mg (not administered) NaCl bolus 0.9 % bolus 1,000 mL (0 mLs Intravenous Stopped 04/20/17 0910) morphine (PF) injection 4 mg (4 mg Intravenous Given 04/20/17 0435) ondansetron (ZOFRAN) injection 4 mg (4 mg Intravenous Given 04/20/17 0435) iohexol (OMNIPAQUE) 350 MG/ML injection 150 mL (150 mLs Intravenous Given 04/20/17 8915) MDM Problem List: abdominal pain DDx: chronic [...] days. Specialty: Family Medicine Contact information: [address] [address] Schedule an appointment as soon as possible for a visit with [facility] Department of General Surgery. Specialty: General Surgery Why: As needed, If symptoms worsen Contact information: [address] [address] Disposition Discharged Kelli Almendarez MD Resident 04/20/17 0632 BREEDER documented in this encounter Plan of Treatment Not on file documented as of this encounter Procedures Procedure Name Priority Date/Time Associated Diagnosis Comments CT ABDOMEN PELVIS W CONTRAST STAT 04/20/2017 5:10 AM BEE BREEDER CBC W AUTO DIFFERENTIAL STAT 04/20/2017 4:04 AM BEE BREEDER COMPREHENSIVE METABOLIC PANEL STAT 04/20/2017 4:04 AM BEE BREEDER LIPASE BLOOD STAT 04/20/2017 4:04 AM BEE BREEDER CBC W AUTO DIFFERENTIAL STAT 04/20/2017 4:04 AM BEE BREEDER URINALYSIS W/MICROSCOPIC NO CULTURE STAT 04/20/2017 1:25 AM BEE BREEDER documented in this encounter Results * CT ABDOMEN PELVIS W CONTRAST (04/20/2017 5:10 AM BEE BREEDER) Anatomical Region Laterality Modality Abdomen, Pelvis Other Impressions 04/20/2017 11:00 AM BEE BREEDER IMPRESSION: 1. No acute process identified in the abdomen or pelvis. Dictated by Felicitas Hickey MD (vice president marketing & development). Dr. Boaz Perez M.D. have personally reviewed and interpreted this examination/study. This report was electronically signed by Boaz DIZA M.D. ??on 04/20/2017 11:00 AM . Narrative 04/20/2017 11:00 AM BEE BREEDER EXAMINATION: Computed tomography (CT) of the abdomen [...] or pelvis. Dictated by Felicitas Hickey MD (vice president marketing & development). I, Dr. Boaz DIAZ M.D. have personally reviewed and interpreted thisexamination/study. This report was electronically signed by Boaz DIAZ M.D. on04/20/2017 11:00 AM . Eddie Khalil MD CT ORDERABLES * (ABNORMAL) CBC W AUTO DIFFERENTIAL (04/20/2017 4:04 AM BEE BREEDER) WBC 9.9 3.5 - 10.5 10? 3 /uL [facility] RBC 4.61 3.90 - 5.00 10? 6 /uL [facility] Hemoglobin 13.1 12.0 - 15.5 g/dL [facility] Hematocrit 40.4 35.0 - 45.0 % [facility] MCV 87.6 81.0 - 97.0 fL [facility] MCH 28.4 28.0 - 34.0 pg [facility] MCHC 32.4 32.0 - 36.0 g/dL [facility] Platelet Count 313 150 - 400 10? 3 /uL [facility] RDW-SD 45.9 36.0 - 50.0 fL [facility] RDW-CV 14.3 11.2 - 14.8 % [facility] MPV 9.8 9.3 - 12.8 fL [facility] nRBC Absolute 0.00 0 10? 3 /uL [facility] nRBC Auto 0.0 0 /100 WBC [facility] Neutrophils % 64.1 35.0 - 70.0 % [facility] Lymphocytes % 25.6 19.7 - 55.1 % [facility] Monocytes % 6.2 3.0 - 15.0 % [facility] Eosinophils % 3.9 0.0 - 6.0 % [facility] Basophil % 0.2 0.0 - 1.5 % [facility] Neutrophils Absolute 6.4 1.6 - 7.0 10? 3 /uL [facility] Lymphocyte Absolute 2.5 0.8 - 2.9 10? 3 /uL [facility] Monocytes Absolute 0.62 0.14 - 0.66 10? 3 /uL [facility] Eosinophils Absolute 0.39(H) 0.00 - 0.22 10? 3 /uL [facility] Basophils Absolute 0.02 0.00 - 0.06 10? 3 /uL [facility] Immature Granulocytes % 0.2 0.0 - 1.0 % [facility] Blood specimen (specimen) BLOOD SPECIMEN / Unknown 04/20/2017 4:04 AM BEE BREEDER 04/20/2017 4:08 AM BEE BREEDER Epi Solitario MD LAB - HEMATOLOGY ORD ERABLES [address] [phone] * (ABNORMAL) COMPREHENSIVE METABOLIC PANEL (04/20/2017 4:04 AM BEE BREEDER) BUN 16 7 - 26 mg/dL [facility] Creatinine 0.7 0.6 - 1.2 mg/dL [facility] Sodium 138 136 - 145 mmol/L [facility] Potassium 4.1 3.5 - 4.5 mmol/L [facility] Chloride 102 98 - 107 mmol/L [facility] CO2 27 22 - 29 mmol/L [facility] Glucose 152(H) 70 - 115 mg/dL [facility] Calcium 10.3(H) 8.4 - 10.2 mg/dL [facility] Protein Total 9.3(H) 6.0 - 8.3 g/dL [facility] Albumin 3.8 3.4 - 5.0 g/dL [facility] Bilirubin Total 0.4 0.2 - 1.2 mg/dL [facility] Alkaline Phosphatase 77 40 - 150 Units/L [facility] ALT 17 0 - 55 Units/L [facility] AST 17 5 - 34 Units/L [facility] Anion Gap 13 8 - 18 [facility] BUN/Creatinine Ratio 23 7 - 23 [facility] Osmolality Calculated 290 270 - 300 mOsm/kg [facility] Albumin/Globulin Ratio 0.7(L) 1.1 - 2.3 [facility] eGFR >60 >60 mL/min/1.7 3 m2 [facility] Blood specimen (specimen) BLOOD SPECIMEN / Unknown 04/20/2017 4:04 AM BEE BREEDER 04/20/2017 4:08 AM BEE BREEDER Epi Solitario MD LAB - CHEMISTRY ANGEL SPEARS [address] [phone] * LIPASE BLOOD (04/20/2017 4:04 AM BEE BREEDER) Lipase 34 8 - 78 Units/L [facility] Blood specimen (specimen) BLOOD SPECIMEN / Unknown 04/20/2017 4:04 AM BEE BREEDER 04/20/2017 4:08 AM BEE BREEDER Epi Solitario MD LAB - CHEMISTRY ANGEL SPEARS Performing Organization Address City/[facility]/ZIP Co de Phone Number [address] [phone] * CBC W AUTO DIFFERENTIAL (04/20/2017 4:04 AM BEE BREEDER) Blood specimen (specimen) BLOOD SPECIMEN / Unknown 04/20/2017 4:04 AM BEE BREEDER Narrative [facility] - 04/20/2017 4:13 AM BEE BREEDER The following orders were created for panel order CBC w Differential. Procedure ? Abnormality ? Status ? --------- ? ------ ? CBC WITH DIFFERENTIAL[[id number]] ? Abnormal ?Final result ? Please view results for these tests on the individual orders. Epi Solitario MD LAB - HEMATOLOGY ORD ERABLES [facility] [address] [place] [address], [facility] * (ABNORMAL) URINALYSIS W/MICROSCOPIC NO CULTURE (04/20/2017 1:25 AM BEE BREEDER) Color UA Yellow Straw, Yellow, Colorless, Light Yellow [facility] Clarity UA Clear Clear [facility] Specific [place] UA 1.020 1.001 - 1.030 [facility] pH UA 5.5 5.0 - 8.0 [facility] Protein UA Negative <=20 mg/dL [facility] Glucose UA Negative Negative mg/dL [facility] Ketone UA Negative Negative mg/dL [facility] Bilirubin UA Negative Negative mg/dL [facility] Blood UA Small(A) Negative [facility] Nitrite UA Negative Negative [facility] Leukocyte Esterase Moderate(A) Negative [facility] Urobilinogen UA <2.0 <2.0 mg/dL [facility] RBC UA 4 0 - 8 /HPF [facility] WBC UA 13(H) 0 - 2 /HPF [facility] Bacteria UA Rare Rare, Occasional, None /HPF [facility] Squamous Epithelial Cells UA 1 0 - 1 /HPF [facility] Mucus UA Moderate(A) None /LPF [facility] Urine specimen (specimen) 04/20/2017 1:25 AM BEE BREEDER 04/20/2017 1:30 AM BEE BREEDER Epi Solitario MD LAB - URINALYSIS ORD ERABLES Performing Organization Address City/State/[facility] Co de Phone Number [facility] [address] [place] [address] documented in this encounter Visit Diagnoses Diagnosis Generalized abdominal pain Abdominal pain, generalized Nausea with vomiting documented in this encounter Care Teams Health Promotion Manager Relationship Specialty Start Date End Date Antoinette Zhu MD [address] [place] [address] [phone] PCP - General 10/21/11 07/04/21 documented as of this encounter
--- OUTSIDE RECORDS SUMMARY | 2024-04-26 06:56 | XMS_ITS | Encounter Summary ---
Author Organization [facility] Address [address] [facility] [place] [address] Care Team Providers Care Chemist Food Name Role Phone Justen Gale MD Primary Care Provider [phone] Reason for Visit * Reason Comments Post-Op SCS Encounter Details Date Type Department Care Team (Late st Contact Info) Description 10/04/2021 2:00 PM CDT Office Visit [facility] Neurosurgery [address] [place] [address], [place] [phone] Dasia Mendoza, AUDIO VISUAL COLLECTIONS COORDINATOR-INSTRUCTOR [employer] [address] [place] [address] [place] [address] S/P insertion of spinal cord stimulator (Primary [...] check For any questions call Sonali at [phone] documented in this encounter Progress Notes * Dasia Mendoza APRN-CNP - 10/04/2021 2:11 PM CDT Neurosurgery Clinic Progress Note Chief Complaint (CC): Follow up spinal stimulation HISTORY OF PRESENT ILLNESS (HPI): Patient is a 66 year old female with a history of chronic axial low back pain and leg pain who underwent a successful trial with dorsal column stimulation with the [employer] system, s/p T8-T9 laminectomy for placement of [...] (1.549 m) Wt 285 lb (129.3 kg) OiP101% BMI 53.85 kg/m2 General: No acute distress. [...] and tone are normal. Deltoid Bicep Tricep Home School Coordinator Wrist Ext Finger ext Hip Flexor Quad [...] of drainage or infection on palpation. Cardenas claims customer service representative available today to assist with stimulation parameters. We willplan to have the patient follow up with Dr. Gregg in 6 weeks. ITA Cabello 10/04/2021 2:36 PM documented in this encounter Plan of Treatment Not on file documented as of this encounter Visit Diagnoses Diagnosis S/P insertion of spinal cord stimulator- Primary documented in this encounter Care Teams Chemist Food Relationship Specialty Start Date End Date Justen Gale MD PCP - General 07/05/21 documented as of this encounter
--- OUTSIDE RECORDS SUMMARY | 2024-04-26 06:56 | XMS_ITS | Encounter Summary ---
Author Organization [facility] Address [address] [facility] [place] [address] Care Team Providers Care Certified Nuclear Medicine Technologist Name Role Phone Justen Gale MD Primary Care Provider [phone] Encounter Details Date Type Department Care Team (Late st Contact Info) Description 08/16/2021 Orders Only [facility] Neurosurgery [facility] [facility], [place] [phone] Maxi Gregg MD [address] [place] [address] [address]L [place] [phone] Chronic bilateral low back pain without sciatica [...] unspecified documented in this encounter Care Teams Certified Nuclear Medicine Technologist Relationship Specialty Start Date End Date Justen Gale MD PCP - General 07/05/21 documented as of this encounter
--- OUTSIDE RECORDS SUMMARY | 2024-04-26 06:56 | XMS_ITS | Encounter Summary ---
Author Organization [facility] Address [address] [facility] [place] [address] Care Team Providers Care Steam Meter Reader Name Role Phone Justen Gale MD Primary Care Provider [phone] Reason for Visit * Reason Comments Establish Care SCS CONSULT * Consult, Test & Treat (Routine) - Closed Specialty Diagnoses / Procedures Referred By Elyssa t Referred To Contact Neurological Surgery Diagnoses Radiculopathy, lumbar region SCS Implantation lubar Cardenas successful Joan Sanchez, WASTE RECLAIMER-SEWING MACHINE OPERATOR FLOORPERSON [address] [place] [address] Maxi Gregg MD [address] [facility] 2L [place] [address] Referral ID Status Reason Start Date Expiration Date Visits Re quested Visits Authorized [id number] Closed 06/07/2021 06/07/2022 1 1 Encounter Details Date Type Department Care Team (Late st Contact Info) Description 07/05/2021 1:00 PM CDT Office Visit [facility] Neurosurgery [facility], [address] [place] [address] Maxi Gregg MD [address] [facility] 2L [place] [address] Chronic bilateral low back pain, [...] CDT To schedule an appointment please call [phone]. To reach the [place]'s office please call [phone]. For any nursing or surgery questions please call NURIS Lyon at [phone]. documented in this encounter Progress Notes * [...] Lancets 33G MISC Use 4 times daily [facility] ULTRA test strip 4 times daily oxybutynin [...] care of your patient. LEVI/[email or web address].[email or web address] Doc ID: [id number] Voice Job ID: [id number] cc: documented in this encounter Plan of Treatment Not on file documented as of this encounter Visit Diagnoses Diagnosis Chronic bilateral low back pain, unspecified whether sciatica present- Primary documented in this encounter Care Teams Steam Meter Reader Relationship Specialty Start Date End Date Justen Gale MD PCP - General 07/05/21 documented as of this encounter
--- OUTSIDE RECORDS SUMMARY | 2024-04-26 06:56 | XMS_ITS | Encounter Summary ---
Author Organization [facility] Address [address] [facility] [place] [address] Care Team Providers Care Auto Damage Appraiser Name Role Phone Justen Gale MD Primary Care Provider [phone] Reason for Visit * Reason Comments Rash [...] CDT - 09/24/2021 2:01 AM CDT Emergency [facility] EMERGENCY DEPARTMENT [address] [place] [phone] Post-op pain; Rash and other nonspecific skin [...] sent through Care Everywhere. * Contact Dermatitis (Cuban) documented in this encounter Medications at Time [...] results for input(s): INR in the last 18862 hours. RADIOLOGY No new radiology Assessment/Plan: 66 [...] clinic. Recommend pain control and antihistamine. Please christian counselor patient to return to ER with [...] Dr. Reyes. Signed: Kehinde [place]. I, Dr. Reyes, personally performed the services described in this documentation. All medical recordentries made by the scribe were at my direction and in my presence. I have reviewed the chart and agree that the record reflects my personal performance and is accurate and complete. * Sisi Ricks PA-C - 09/23/2021 8:59 PM CDT [...] - CHEMISTRY ORDE REGAN Performing Organization Address [facility]/ZIP Co de Phone Number [address] [address], [facility] [phone] * (ABNORMAL) ERYTHROCYTE SEDIMENTATION RATE (09/23/2021 8:45 PM CDT) Erythrocyte Sedimentation Rate Westergren 115(H) 0 - 30 MM/HR 09/23/2021 9:10 PM T [facility] Blood BLOOD SPECIMEN / Unknown Venipuncture / Unknown 09/23/2021 8:45 PM CDT 09/23/2021 8:51 PM CDT Epi Solitario MD LAB - HEMATOLOGY ORD NEGRITA Performing Organization Address City/[facility]/ZIP Co de Phone Number [address] [address], [facility] [phone] * (ABNORMAL) COMPREHENSIVE METABOLIC PANEL (09/23/2021 8:45 PM CDT) Pathologist [facility] BUN 17 7 - 26 mg/dL 09/23/2021 9:21 PM [facility] Creatinine 0.92 0.56 - 0.96 mg/dL 09/23/2021 9:21 PM [facility] Sodium 140 136 - 145 mmol/L 09/23/2021 9:21 PM [facility] Potassium 4.4 3.5 - 4.5 mmol/L 09/23/2021 9:21 PM [facility] Chloride 100 98 - 107 mmol/L 09/23/2021 9:21 PM [facility] CO2 27 22 - 29 mmol/L 09/23/2021 9:21 PM [facility] Glucose 133(H) 70 - 115 mg/dL 09/23/2021 9:21 PM [facility] Calcium 9.9 8.4 - 10.2 mg/dL 09/23/2021 9:21 PM [facility] Protein Total 7.7 6.0 - 8.3 g/dL 09/23/2021 9:21 PM [facility] Albumin 3.0(L) 3.4 - 5.0 g/dL 09/23/2021 9:21 PM [facility] Bilirubin Total 0.3 0.2 - 1.2 mg/dL 09/23/2021 9:21 PM [facility] Alkaline Phosphatase 78 40 - 150 U/L 09/23/2021 9:21 PM [facility] ALT 21 5 - 55 U/L 09/23/2021 9:21 PM [facility] AST 15 5 - 34 U/L 09/23/2021 9:21 PM [facility] Anion Gap 17 8 - 18 09/23/2021 9:21 PM [facility] BUN/Creatinine Ratio 18 7 - 23 09/23/2021 9:21 PM [facility] Osmolality Calculated 293 270 - 300 mOsm/kg 09/23/2021 9:21 PM [facility] Albumin/Globulin Ratio 0.6(L) 1.1 - 2.3 09/23/2021 9:21 PM [facility] eGFR by CKD-EPI 69(L) >=90 mL/min/1.7 3 m2 09/23/2021 9:21 PM [facility] Blood BLOOD SPECIMEN / Unknown Venipuncture / Unknown 09/23/2021 8:45 PM CDT 09/23/2021 8:50 PM CDT Epi Solitario MD LAB - CHEMISTRY ANGEL SPEARS [facility] Organization Address City/State/ZIP Co de Phone Number [facility] [address] [place] [phone], [facility] [phone] * (ABNORMAL) CBC W AUTO DIFFERENTIAL (09/23/2021 8:45 PM CDT) WBC 13.0(H) 3.5 - 10.5 10? 3 /uL 09/23/2021 8:54 PM [facility] RBC 4.17 3.80 - 5.20 10? 6 /uL 09/23/2021 8:54 PM [facility] Hemoglobin 12.3 12.0 - 15.6 g/dL 09/23/2021 8:54 PM [facility] Hematocrit 38.5 35.0 - 45.0 % 09/23/2021 8:54 PM [facility] MCV 92.3 80.7 - 98.3 fL 09/23/2021 8:54 PM [facility] MCH 29.5 26.7 - 34.0 pg 09/23/2021 8:54 PM [facility] MCHC 31.9 30.8 - 35.9 g/dL 09/23/2021 8:54 PM [facility] Platelet Count 319 150 - 400 10? 3 /uL 09/23/2021 8:54 PM [facility] RDW-SD 46.0 36.0 - 50.0 fL 09/23/2021 8:54 PM [facility] RDW-CV 13.5 11.2 - 14.8 % 09/23/2021 8:54 PM [facility] MPV 9.2(L) 9.4 - 12.9 fL 09/23/2021 8:54 PM [facility] nRBC Absolute 0.00 0 10? 3 /uL 09/23/2021 8:54 PM [facility] nRBC Auto 0.0 0 /100 WBC 09/23/2021 8:54 PM [facility] Neutrophils % 69.1 35.0 - 70.0 % 09/23/2021 8:54 PM [facility] Lymphocytes % 19.0(L) 20.0 - 43.0 % 09/23/2021 8:54 PM [facility] Monocytes % 6.3 5.0 - 13.0 % 09/23/2021 8:54 PM [facility] Eosinophils % 4.8 0.0 - 6.0 % 09/23/2021 8:54 PM [facility] Basophil % 0.3 0.0 - 2.0 % 09/23/2021 8:54 PM CDT [facility] Neutrophils Absolute 9.0(H) 1.6 - 7.0 10? 3 /uL 09/23/2021 8:54 PM CDT [facility] Lymphocyte Absolute 2.5 1.1 - 3.9 10? 3 /uL 09/23/2021 8:54 PM T [facility] Monocytes Absolute 0.81 0.26 - 1.07 10? 3 /uL 09/23/2021 8:54 PM T [facility] Eosinophils Absolute 0.62(H) 0.00 - 0.47 10? 3 /uL 09/23/2021 8:54 PM CDT [facility] Basophils Absolute 0.04 0.00 - 0.08 10? 3 /uL 09/23/2021 8:54 PM T [facility] Immature Granulocytes % 0.5 0.0 - 1.0 % 09/23/2021 8:54 PM T [facility] Immature Granulocytes Absolute 0.07 09/23/2021 8:54 PM [facility] Blood BLOOD SPECIMEN / Unknown Venipuncture / Unknown 09/23/2021 8:45 PM CDT 09/23/2021 8:51 PM CDT Epi Solitario MD LAB - HEMATOLOGY ORD ERABLES Performing Organization Address City/State/[facility] Co de Phone Number [facility] [address] [place] [address], [facility] [phone] documented in this encounter Visit Diagnoses Diagnosis [...] RN) documented in this encounter Care Teams Auto Damage Appraiser Relationship Specialty Start Date End Date Justen Gale MD PCP - General 07/05/21 documented as of this encounter
--- OUTSIDE RECORDS SUMMARY | 2024-04-26 06:56 | XMS_ITS | Encounter Summary ---
Author Organization [facility] Address [address] [facility] [place] [address] Care Team Providers Care Engraver Letter Name Role Phone Justen Gale MD Primary Care Provider [phone] Reason for Visit * Auth/Cert Specialty Diagnoses / Procedures Referred By Elyssa t Referred To Contact Diagnoses Diagnosis unknown Diagnosis unknown [R69] Procedures LAMINECTOMY THORACIC Referral ID Status Reason Start Date Expiration Date Visits Re quested Visits Authorized [id number] 1 1 Encounter Details Date Type Department Care Team (Late st Contact Info) Description 09/16/2021 7:30 AM CDT - 09/16/2021 10:17 AM CDT Surgery [facility] [address] [place] [address] Maxi Gregg MD [address] [place] [address] [place] [id number] THORACIC EIGHT- THORACIC NINE LAMINECTOMY FOR PLACEMENT OF A DORSAL COLUMN STIMULATION SYSTAM AND PLACEMENT OF THE BATTERY IN THE LOWER LUMBAR REGION Surgery Details Date/Time Status Location OR Service Patient Class Case Class Case Type Trauma Case? 09/16/2021 7:30 AM Posted [facility] OR OR 07 Neurosurgery Surgery [...] Needs ## LATEX ALLERGY## NEEDS C-ARM, SPECIALTY QUALITY CONSULTANT NOTIFIED PER OFFICE(JEY) WITH A CONFIRMATION # [id number]- 08/16 TM, SAVAGE REP (RODRÍGUEZ [phone]) NOTIFIED PER OFFICE(JEY) 08/16 TM / SURGEON [...] MD - 09/16/2021 8:17 AM CDT [facility] ?Operative Report ?? PATIENT NAME: MOHSEN SALAZAR ?MR#:??[id number] DATE OF :?1955?CSN:?[id number] ?? DATE OF ADMISSION: ??09/16/2021?ROOM#: ??[facility] ?INTRAOP DATE OF OPERATION: ??09/16/2021? PREOPERATIVE [...] Needs ## LATEX ALLERGY## NEEDS C-ARM, SPECIALTY QUALITY CONSULTANT NOTIFIED PER OFFICE(JEY) WITH A CONFIRMATION # [id number]- 08/16 TM, SAVAGE REP (RODRÍGUEZ [phone]) NOTIFIED PER OFFICE(JEY) 08/16 TM / SURGEON [...] 106 mg/dL 09/16/2021 1:04 PM CDT [facility] Specimen Type Cap Fingerstick 2021 1:04 PM CDT [facility] Blood BLOOD SPECIMEN / Unknown 09/16/2021 10:03 AM CDT 09/16/2021 1:04 PM CDT Maxi Gregg MD LAB - POINT OF C ARE ORDERABLES Performing Organization Address City/[facility]/ZIP Co de Phone Number [facility] [address] [place] [address] * [place] GIANFRANCO SURGERY (09/16/2021 9:30 AM CDT) Narrative [facility] - 09/16/2021 2:19 PM CDT For details of this study, please see the providers note. Maxi Gregg MD FLUOROSCOPY ORDE RABLES [facility] [address] [place] [address] * (ABNORMAL) GLUCOSE - POINT OF CARE (09/16/2021 7:12 AM CDT) Glucose WB/POC 165(H) 70 - 106 mg/dL 09/17/2021 5:24 AM CDT [facility] Specimen Type Venous 09/17/2021 5:24 AM CDT [facility] Blood BLOOD SPECIMEN / Unknown 09/16/2021 7:12 AM CDT 09/17/2021 5:24 AM CDT Maxi Gregg MD LAB - POINT OF C ARE ORDERABLES [facility] [address] [place] [id number] documented in this encounter Visit Diagnoses Diagnosis [...] 09/16/2021 10:05 AM CDT 50 mcg HYDROcodone-acetaminophen ([place]) 7.5-325 MG tablet 1 tablet 1 tablet, [...] New Bag/Syringe - Provider: Mary J Gentry, [employer] DEALER-FISH INSPECTOR) lactated ringers infusion at 125 mL/hr, Intravenous, [...] Given - Provider: Brian Mcintosh RN) HYDROcodone-acetaminophen ([place]) 7.5-325 MG tablet 1 tablet 1 tablet, Oral, EVERY 4 HOURS PRN, Moderate Pain, Starting on Valeri 09/16/21 at 1111, Until Vaelri 09/16/21 at 1622, Patient preference for lesser [...] site) documented in this encounter Care Teams Engraver Letter Relationship Specialty Start Date End Date Justen Gale MD PCP - General 07/05/21 documented as of this encounter
--- OUTSIDE RECORDS SUMMARY | 2024-04-26 06:56 | XMS_ITS | Encounter Summary ---
Author Organization [facility] Address [address] [facility] [place] [address] Care Team Providers Care Artificial Cherry Maker Name Role Phone Justen Gale MD Primary Care Provider [phone] Reason for Visit * Reason Onset Date Comments Surgery Scheduling 08/11/2021 Encounter Details Date Type Department Care Team (Late st Contact Info) Description 08/11/2021 Telephone [facility] [address] [facility] [place] [phone] [facility] Scheduling Social History Tobacco [...] 09/16/2021 will need to arrive at 0530am [facility] same day surgery NPO (nothing to eat or drink) after midnight Hold Asprin and NSAIDs 7 days prior to surgery Blood work needs to be complete before surgery date Hold Xarltro 5 days prior to surgery For any questions please call Sonali at [phone] Patient verbalize understanding with no further questions. documented in this encounter Plan of Treatment Not on file documented as of this encounter Visit Diagnoses Not on filedocumented in this encounter Care Teams Artificial Cherry Maker Relationship Specialty Start Date End Date Justen Gale MD PCP - General 07/05/21 documented as of this encounter
--- OUTSIDE RECORDS SUMMARY | 2024-04-26 07:00 | XMS_ITS | Clinical Summary ---
Author Organization [facility] Address [address] [place] [address]. [place] [address] [place] [address] Care Team Providers Care Curriculum Assistant Principal Name Role Phone Meena Bansal MD Unavailable [phone] Justen Gale MD Primary Care Provider [phone] Allergies Active Allergy Reactions Criticality Noted Date [...] reflux disease 09/05/2020 Malignant tumor of breast ([facility]/HCC [facility]) 08/22 Knee pain 09/05/2020 Other chronic pain 09/05/2020 Plantar fasciitis of left foot 08/09/2019 Postoperative visit 06/10/2019 Injury of muscle or tendon o f peroneal muscle group at lower leg level 03/30/2019 Peroneal tendinitis 03/30/2019 Sprain of left ankle 03/07/2019 Class 3 severe obesity due t o excess calories with serious comorbidity and body mass index (BMI) of 50.0 to 59.9 in adult ([facility]) 11/15/2018 Abdominal pain 09/09/2018 Diverticulosis 08/30/2018 Pain [...] left inferior nodule. ACS (acute coronary syndrome) ([facility]) 03/18/2018 Assessment & Plan (03/18/2018 2:55 AM STEAM ROOM ATTENDANT): Acute, patient reported as epigastric pain however may be atypical presentation. Troponins negative x2. Also in differential is GERD, PUD - Admit to observation -Follow-up troponins -Monitor vitals -N.p.o. at midnight - Stress echo in a.m. - Consider cardiology consult based on results of stress test -Begin Protonix Epigastric pain 03/18/2018 Assessment & Plan (03/18/2018 5:39 AM STEAM ROOM ATTENDANT): Acute, non radiating, worsens with lying down, [...] Speech impairment 01/30/2018 CVA (cerebral vascular accident) ([facility]/ C) 01/24/2018 Neck pain on right side 12/01/2017 Anxiety and depression 11/12/2017 Chronic anticoagulation 11/09/2017 Constipation 11/09/2017 Uncontrolled type 2 diabetes mellitus with hyperglycemia, with long-term current use of insulin ([facility]) 11/06/2017 [facility] (current) use 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 inhibitors 10/23/2017 Lumbosacral [...] upper- 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 ([facility]) 10/17/2017 Assessment & Plan (08/31/2018 12:24 AM CDT): S/p masectomy. -continue exemestane Acute deep vein thrombosis ( DVT) of proximal vein of right lower extremity ([facility]) 10/17/2017 Dysuria 10/17/2017 Hyperthyroidism 10/17/2017 Cancer of overlapping sites of left female breast ([facility]) 10/13/2017 Syncope 09/29/2017 High blood pressure 08/22/2017 Overview (09/05/2020): Last Assessment & Plan: On lisinopril Last Assessment & Plan: On lisinopril Assessment & Plan (08/30/2018 9:57 PM CDT): Chronic. Controlled. -continue home medications Assessment & Plan (03/18/2018 2:51 AM STEAM ROOM ATTENDANT): Chronic, BPs currently 127/78 - To new home meds Morbid obesity with BMI of 5 0.0-59.9, adult ([facility]) 08/22/2017 Sepsis ([facility]) 08/22/2017 Type 2 diabetes mellitus ([facility]) 08/22 Overview (09/05/2020): Last Assessment & Plan: Hold janument. Start on SSI and accucheks Assessment & Plan (08/30/2018 10:01 PM CDT): Chronic. Controlled. -continue home insulin regimen of lantus 50 units q am -lispro 20 units with breakfast and lunch. 22 units with dinner. Assessment & Plan (03/18/2018 2:53 AM STEAM ROOM ATTENDANT): Chronic, patient reports medical compliance with 50 units of Lantus daily and 15 units of Humalog before meals. No recent HbA1c - Monitor POC glucose -Gause home regimen - Consider sliding scale insulin -Follow-up HbA1c Bronchitis 08/20/2017 LUL (obstructive sleep apnea) 08/01/2017 Assessment & Plan (03/18/2018 2:54 AM STEAM ROOM ATTENDANT): Chronic, on CPAP at home - Continue home CPAP History of DVT (deep vein thrombosis) 08/01/2017 Assessment & Plan (03/18/2018 2:54 AM STEAM ROOM ATTENDANT): Chronic - Continue home Xarelto Chest pressure 08/01/2017 Diet-controlled diabetes mellitus ([facility]) 08/01/2017 History of pulmonary embolism 08/01/2017 Hyponatremia 08/01/2017 Positive blood culture 08/01/2017 Acute pharyngitis 07/27/2017 Generalized weakness 07/27/2017 Nausea and vomiting 07/26/2017 Overview (09/05/2020): Overview: Overview: Added automatically from request for surgery [id number] Overview: Added automatically from request for surgery [id number] Added automatically from request for surgery [id number] Neuropathy 07/05/2017 History of breast cancer 02/06/2017 Pulmonary embolism ([facility]) 08/09/2016 Overview (09/05/2020): Last Assessment & [...] syndrome Assessment & Plan (03/18/2018 2:54 AM STEAM ROOM ATTENDANT): Chronic -Continue home ropinirole Pain of lower [...] drink = 0.6 oz pur e alcohol) [facility] Utilities Answer Date Recorded In the past 12 months has e electric, gas, oil, or water [employer] threatened to shut off services in your [...] any time in the past 12 m [facility], were you homeless or living in a halfway (including now)? No 10/13/2023 Comments No Sex and Gender Information Value Date Recorded Sex Assigned at Female 09/06/2020 12:50 AM CDT Legal Sex Female 10:47 AM CDT Gender Identity Female 09/06/2020 12:50 AM CDT Sexual Orientation Straight 03/18/2018 3: 01 AM STEAM ROOM ATTENDANT Last Filed Vital Signs Vital Sign Reading [...] 8.0(H) <5.7 % 10/14/2023 5:50 AM CDT [facility] Comment: ADA GUIDELINES 2010 5.7 TO 6.4% INCREASED RISK OF DIABETES > OR = 6.5% CONSISTENT WITH DIABETES ESTIMATED AVG GLUCOSE 183 mg/dL 10/14/2023 5:50 AM CDT [facility] 10/14/2023 3:40 AM CDT us Peggy Bland MD LABORATORY Final Result [facility] [address] [place] [address], * LIPID PANEL (10/14/2023 3:40 AM CDT) CHOLESTEROL 164 <200 MG/DL 10/14/2023 4:31 AM CDT [facility] TRIGLYCERIDES 114 <150 MG/DL 10/14/2023 4:31 AM CDT [facility] HDL 46 >40.0 MG/DL 10/14/2023 4:31 AM CDT [facility] LDL (CALCULATED) 95 <100 MG/DL 10/14/19 4:31 AM CDT [facility] NON HDL CHOLESTEROL 118 <130 MG/DL 10/13 4:31 AM T [facility] CHOL/HDL RATIO 3.6 0.0 - 4.5 10/14/2023 4:31 AM CDT [facility] VLDL CALCULATION 23 5 - 55 MG/DL 10/14/2023 4:31 AM CDT [facility] LIPID INTERPRETATION 10/14/2023 4:31 AM CDT [facility] Comment: NIH CONCENSUS REPORT RECOMMENDATIONS: ?ADULT [...] us Peggy Bland MD LABORATORY Final Result [facility] [address] [place] [address], from Last 3 Months or Most Recently Relevant to Health Maintenance Insurance MEDICAID Member Subscriber Plan / Payer (Ef fective 2017-Present) Name:Mohsen Salazar Relation to Subscriber:Self Name:Mohsen Salazar Payer ID:Not on file Group ID:Not on file Type:Not on file Address: [address] Advance Directives * Full Code (Latest [...] 2:42 AM 03/18/2018 4:50 PM Care Teams Curriculum Assistant Principal Relationship Specialty Start Date End Date Justen Gale MD [address] [facility] [address] [place] [address] PCP - General FAMILY PRACTICE 08/20/17 Meena Bansal MD [address] [place] [address] Leonard Language Translator CARDIOVASCULAR DISEASE 04/24/16
--- OUTSIDE RECORDS SUMMARY | 2024-04-26 07:00 | XMS_ITS | Encounter Summary ---
Author Organization [facility] Address [address] [place] [address]. [place] [address] [place] [address] Care Team Providers Care Surg Physician Asst Name Role Phone Meena Bansal MD Unavailable [phone] Justen Gale MD Primary Care Provider [phone] Encounter Details Date Type Department Care Team (Latest Contact Info) Description 10/13/2023 Travel Social History Tobacco Use Types Packs/Day Years Used Date Smoking Tobacco: Former Cigarettes 0.3 2 1 05/23/1974 - 03/23/1977 Smokeless Tobacco: Never Alcohol Use Standard Drinks/Week Comments No 0 (1 standard drink = 0.6 oz pur e alcohol) [facility] Utilities Answer Date Recorded In the past 12 months has e electric, gas, oil, or water [employer] threatened to shut off services in your [...] any time in the past 12 [facility], were you homeless or living in a alf (including now)? No 10/13/2023 Comments No Sex and Gender Information Value Date Recorded Sex Assigned at Female 09/06/2020 12:50 AM CDT Legal Sex Female 10:47 AM CDT Gender Identity Female 09/06/2020 12:50 AM CDT Sexual Orientation Straight 03/18/2018 3: [address] MESSENGER documented as of this encounter Functional Status [...] documented as of this encounter Care Teams Surg Physician Asst Relationship Specialty Start Date End Date Justen aGle MD [facility]. [address] [place] [address] PCP - General FAMILY PRACTICE 08/20/17 Meena Bansal MD [facility]. [address] [place] [address] José Luis [employer]arette [employer] Chief Inspector CARDIOVASCULAR DISEASE 04/24/16 documented as of this encounter
--- OUTSIDE RECORDS SUMMARY | 2024-04-26 07:00 | XMS_ITS | Encounter Summary ---
Author Organization [facility] Address [address] [place] [address]. [place] [address] [place] [address] Care Team Providers Care Linux Unix Administrator Name Role Phone Meena Bansal MD Unavailable [phone] Gerardo Hoffman MD Primary Care Provider [phone] Reason for Referral * (Routine) - Canceled Specialty Diagnoses / Procedures Referred By Elyssa benavides Referred To Contact Procedures PT eval and treat Nanda Pineda MD 1 [place] [address] Phone: tel: fax: Referral ID Status Reason Start Date Expiration Date V isits Requested Visits Authorized [id number] Canceled 10/14/2023 10/13/2024 1 1 Reason for Visit * Reason Comments Medical Problem * Auth/Cert (Routine) Specialty Diagnoses / Procedures Referred By Elyssa benavides Referred To Contact Diagnoses Pneumonia CAP (community acquired pneumonia) Procedures NONE Nanda Pineda MD 1 [place] [address] Phone: tel: fax: Referral ID Status Reason Start Date Expiration Date Visits Re quested Visits Authorized [id number] 1 1 Encounter Details Date Type Department Care Team (Latest Contact Info) Description 10/13/2023 6:02 PM CDT - 10/14/2023 12:40 PM CDT Hospital Encounter [facility] [place] [address] Peter Schwartz MD 1 [place] [address] Nanda Pineda MD 1 [facility] [place] [address] Janeth Valdez MD 1 [place] [address] Medical Problem Discharge Disposition: Home or Self Care (Routine Discharge) Social History Tobacco Use Types Packs/Day Years Used Date Smoking Tobacco: Former Cigarettes 0.3 2 1 05/23/1974 - 03/23/1977 Smokeless Tobacco: Never Alcohol Use Standard Drinks/Week Comments No 0 (1 standard drink = 0.6 oz pur e alcohol) [facility] Utilities Answer Date Recorded In the past 12 months has [facility], gas, oil, or water [employer] threatened to shut off services in your [...] any time in the past 12 m [facility], were you homeless or living in a nursing home (including now)? 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 She was seen in [facility] [place], diagnosed with PNA, prescibed Xentela(lefamulin), but [...] will continue Augmentin alone Follow up with ship fitter as scheduled DM type II Lantus , [...] : ECG 12 lead Result Date: 10/13/[address] [place] Test Date: 2023-10-13 Pat Name: MOHSEN MARQUES Department: 41 Room: Gender: Female Claim Representative: [id number] : 1955 Requested By: NESSA SINGLETON Order Number: [id number] Reading MD: Measurements Intervals [place] Rate:65 P: 22 OK: 143 QRS: -4 QRSD: 92 T: 24 [...] Care Everywhere. * Community-acquired pneumonia in adults ([place]) documented in this encounter Medications at Time [...] Outcome: Adequate for Discharge 10/14/2023 09 by Jdaa Bach RN Outcome: Progressing Goal: Collaborate with [...] chronic pain syndrome (on high dose of [place]) who presents for evaluation of cough generalized weakness and fever at home. She was seen in [facility] yesterday, diagnosed with PNA, prescibed Xentela(lefamulin), but [...] pain Blood clot in vein Breast cancer ([facility]) Cancer ([facility]) Diabetes mellitus ([facility] H[facility]/HCC) Disease of thyroid gland DVT (deep venous thrombosis) ([facility] H[facility]/HCC) Hypertension Kidney stones Neuropathy PE (pulmonary thromboembolism) ([facility] HHS/HCC) Restless leg syndrome Spinal headache Has [...] Patient Unable To Answer (08/15/2023) Received from [facility] Overall Financial Resource Strain (CARDIA) Difficulty of Paying Living Expenses: Patient unable to answer Food Insecurity: Patient Unable To Answer (08/15/2023) Received from [facility] Hunger Vital Sign Worried About Running Out of Food in the Last Year: Patient unable to answer Ran Out of Food in the Last Year: Patient unable to answer Transportation Needs: Patient Unable To Answer (08/15/2023) Received from [facility] PRAPARE - Transportation Lack of Transportation (Medical): Patient unable to answer Lack of Transportation (Non-Medical): Patient unable to answer Stress: No Stress Concern Present (05/16/2023) Received from [facility] [place] [facility] - Occupational Stress Questionnaire Feeling of Stress : Not at all Social Connections: Patient Unable To Answer (08/15/2023) Received from [facility] Social Connection and Isolation Panel [NHANES] Frequency of Communication with Friends and Family: Patient unable to answer Frequency of Social Gatherings with Friends and Family: Patient unable to answer Attends Alevism Services: Patient unable to answer Active Member [...] input(s): PH , PCO2 , PO2 , [id number] , BICARBWB , BASEDEFICIT , BASEEXCESS in the last 168 hours. Imagining & Other Studies Imaging ECG 12 lead Result Date: 10/13/[address] [place] Test Date: 2023-10-13 Pat Name: MOHSEN MARQUES Department: 41 Room: Gender: Female Claim Representative: [id number] : 1955 Requested By: NESSA SINGLETON Order Number: [id number] Reading MD: Measurements Intervals [place] Rate: 65 P: 22 OK: 143 QRS: -4 QRSD: 92 T: 24 [...] chronic pain syndrome (on high dose of [place]) . CAP presents with cough generalized weakness [...] Schwartz MD - 10/13/2023 6:16 PM CDT [place], [place] EMERGENCY DEPARTMENT ENCOUNTER Chief Complaint Chief Complaint Patient presents with Medical Problem History of Present Illness Provider at Bedside None Mohsen Marques is a 74-ebdg-mao-year-old female with a PMH of arthritis, back [...] pain Blood clot in vein Breast cancer ([facility] HHS/HCC) Cancer ([facility] H[facility]/HCC) Diabetes mellitus ([facility] H[facility]/HCC) Disease of thyroid gland DVT (deep venous thrombosis) ([facility] H[facility]/HCC) Hypertension Kidney stones Neuropathy PE (pulmonary thromboembolism) ([facility] H[facility]/HCC) Restless leg syndrome Spinal headache Has [...] 10/14/2023, Until 10/18/2023, Eprescribe Class: Eprescribe Pharmacy: [id number] - [place], [place] - [address] (Ph #: [phone]) Disposition: Admit Follow-Up: GERARDO HOFFMAN MD I, [...] - 99 mg/dL 10/14/2023 11:09 AM CDT [facility] 10/14/2023 11:0 8 AM CDT us Janeth Valdez MD POCT ORDERABLES - DEVICE F inal Result Performing Organization Address [facility]/ZIP Co de Phone Number [facility] [address] [place] [address], [place] [phone] * (ABNORMAL) POCT glucose (10/14/2023 6:31 AM CDT) GLUCOSE POC 143(H) 70 - 99 mg/dL 10/14/2023 6:33 AM CDT [facility] 10/14/2023 6:31 AM CDT us Janeth Valdez MD POCT ORDERABLES - DEVICE F inal Result Performing Organization Address City/[facility]/ZIP Co de Phone Number [facility] [address] [place] [address], [place] [phone] * LIPID PANEL (10/14/2023 3:40 AM CDT) CHOLESTEROL 164 <200 MG/DL 10/14/2023 4:31 AM CDT [facility] TRIGLYCERIDES 114 <150 MG/DL 10/14/2023 4:31 AM [facility] HDL 46 >40.0 MG/DL 10/14/2023 4:31 AM [facility] LDL (CALCULATED) 95 <100 MG/DL 10/14/19 4:31 AM [facility] NON HDL CHOLESTEROL 118 <130 MG/DL 10/13 4:31 AM [facility] CHOL/HDL RATIO 3.6 0.0 - 4.5 10/14/2023 4:31 AM [facility] VLDL CALCULATION 23 5 - 55 MG/DL 10/14/2023 4:31 AM [facility] LIPID INTERPRETATION 10/14/2023 4:31 AM [facility] Comment: [facility] REPORT RECOMMENDATIONS: ?ADULT ?CHILD ??LOW [...] MD LABORATORY Final Result Performing Organization Address [facility] de Phone Number [facility] [address] [place] [address], * (ABNORMAL) HEMOGLOBIN, GLYCOSYLATED (10/14/2023 3:40 AM CDT) [facility] HGB A1C 8.0(H) <5.7 % 10/14/2023 5:50 AM CDT [facility] Comment: ADA GUIDELINES 2010 5.7 TO 6.4% INCREASED RISK OF DIABETES > OR = 6.5% CONSISTENT WITH DIABETES ESTIMATED AVG GLUCOSE 183 mg/dL 10/14/2023 5:50 AM CDT [facility] 10/14/2023 3:40 AM CDT us Nanda Pineda MD LABORATORY Final Result Performing Organization Address [facility] de Phone Number [facility] [address] [place] [address], * THYROID STIM HORMONE, TSH (10/14/2023 3:40 AM CDT) TSH 1.900 0.358 - 3.74 uIU/ML 10/14/2023 4:35 AM CDT [facility] Comment: HIGH DOSES OF BIOTIN MAY INTERFERE WITH THIS TEST RESULT. CORRELATION TO CLINICAL HISTORY AND PRESENTATION RECOMMENDED. 10/14/2023 3:40 AM CDT Nanda Pineda MD LABORATORY Final Result [facility] [address] [place] [address], [place] [phone] * (ABNORMAL) BASIC METABOLIC PANEL (10/14/2023 3:40 AM CDT) GLUCOSE 149(H) 70 - 99 MG/DL 10/14/2023 4:35 AM CDT [facility] BUN 16 7 - 18 MG/DL 10/14/2023 4:35 AM CDT [facility] CREATININE S/P/B 0.78 0.55 - 1.02 MG/DL 10/14/2023 4:35 AM CDT [facility] SODIUM S/P/B 139 136 - 145 MMOL/L 10/14/2023 4:35 AM CDT [facility] POTASSIUM S/P/B 4.4 3.5 - 5.1 MMOL/L 10/14/2023 4:35 AM CDT [facility] CHLORIDE S/P/B 108 100 - 108 MMOL/L 10/14/2023 4:35 AM CDT [facility] CO2 27.7 21 - 32 MMOL/L 10/14/2023 4:35 AM CDT [facility] CALCIUM S/P/B 9.3 8.5 - 10.1 MG/DL 10/14/2023 4:35 AM CDT [facility] ANION GAP 3.3(L) 5 - 15 MMOL/L 10/14/2023 4:35 AM CDT [facility] BUN CREATININE RATIO 20.5 6 - 26 10/14/2023 4:35 AM CDT [facility] GFR ESTIMATE 83(L) >90 ML/MIN/1.7 3 M2 10/14/2023 4:35 AM CDT [facility] Comment: NOTE: eGFR is not calculated for patients <18 years of age. This is an estimated GFR calculation using the new CKD EPI creatinine equation without race and so does not require a correction factor for race. This estimated GFR should not be used for calculating drug doses. 10/14/2023 3:40 AM CDT us Nanda Pineda MD LABORATORY Final Result [facility] [address] [place] [address], [place] [phone] * (ABNORMAL) CBC W/DIFF AUTOMATED (10/14/2023 3:40 AM CDT) WBC 10.10 4.5 - 11.0 x10'3/uL 10/14/2023 3:59 AM CDT [facility] RBC 4.08(L) 4.20 - 5.40 x10'6/uL 10/14/2023 3:59 AM CDT [facility] HGB 11.6(L) 12.0 - 16.0 G/DL 10/14/2023 3:59 AM CDT [facility] HCT 37.5(L) 38.0 - 48.0 % 10/14/2023 3:59 AM CDT [facility] MCV 91.9 81.0 - 99.0 FL 10/14/2023 3:59 AM CDT [facility] MCH 28.4 27.0 - 31.0 PG 10/14/2023 3:59 AM CDT [facility] MCHC 30.9(L) 32.0 - 36.0 G/DL 10/14/2023 3:59 AM CDT [facility] RDW 13.9 11.5 - 14.5 % 10/14/2023 3:59 AM CDT [facility] PLT 246 130 - 400 x10'3/uL 10/14/2023 3:59 AM CDT [facility] MPV 10.0 9.3 - 12.2 FL 10/14/2023 3:59 AM CDT [facility] DIFFERENTIAL TYPE AUTOMATED DIFFERENTIAL 10/14/2023 3:59 AM CDT [facility] NEUTROPHILS % 59.2 % 10/14/2023 3:59 AM CDT [facility] LYMPHOCYTES % 28.9 % 10/14/2023 3:59 AM CDT [facility] MONOCYTES % 7.7 % 10/14/2023 3:59 AM CDT [facility] EOSINOPHILS 3.4 % 10/14/2023 3:59 AM CDT [facility] BASOPHILS 0.4 % 10/14/2023 3:59 AM CDT [facility] IMMATURE GRANS % 0.4 % 10/14/19 3:59 AM CDT [facility] ABS. NEUTROPHILS 5.98 1.80 - 7.70 x10'3/uL 10/14/2023 3:59 AM CDT [facility] ABS. LYMPHOCYTES 2.92 1.00 - 4.80 x10'3/uL 10/14/2023 3:59 AM CDT [facility] ABS. MONOCYTES 0.78 0.24 - 0.86 x10'3/uL 10/14/2023 3:59 AM CDT [facility] ABS. EOSINOPHILS 0.34 0.04 - 0.36 x10'3/uL 10/14/2023 3:59 AM CDT [facility] ABS. BASOPHILS 0.04 0.01 - 0.08 x10'3/uL 10/14/2023 3:59 AM CDT [facility] ABS. IMMATURE GRANULOCYTES 0.04 0.00 - 0.49 x10'3/uL 10/14/2023 3:59 AM CDT [facility] 10/14/2023 3:40 AM CDT us Nanda Pineda MD LABORATORY Final Result [facility] [address] [place] [address], * (ABNORMAL) COMPREHENSIVE METABOLIC PANEL (10/13/2023 8:05 PM CDT) GLUCOSE 134(H) 70 - 99 MG/DL 10/13/2023 8:43 PM CDT [facility] BUN 15 7 - 18 MG/DL 10/13/2023 8:43 PM CDT [facility] CREATININE S/P/B 0.86 0.55 - 1.02 MG/DL 10/13/2023 8:43 PM CDT [facility] SODIUM S/P/B 138 136 - 145 MMOL/L 10/13/2023 8:43 PM CDT [facility] POTASSIUM S/P/B 4.0 3.5 - 5.1 MMOL/L 10/13/2023 8:43 PM CDT [facility] CHLORIDE S/P/B 106 100 - 108 MMOL/L 10/13/2023 8:43 PM CDT [facility] CO2 26.5 21 - 32 MMOL/L 10/13/2023 8:43 PM CDT [facility] CALCIUM S/P/B 10.1 8.5 - 10.1 MG/DL 10/13/2023 8:43 PM CDT [facility] BILIRUBIN TOTAL S/P/B 0.5 0.2 - 1.2 MG/DL 10/13/2023 8:43 PM CDT [facility] Comment: THIS ASSAY IS NOT RECOMMENDED FOR PATIENTS UNDERGOING TREATMENT WITH ELTROMBOPAG DUE TO THE POTENTIAL FOR FALSELY ELEVATED RESULTS. TOTAL PROTEIN S/P/B 8.3(H) 6.4 - 8.2 G/DL 10/13/2023 8:43 PM CDT [facility] ALBUMIN S/P/B 3.2(L) 3.4 - 5.0 G/DL 10/13/2023 8:43 PM CDT [facility] AST 14(L) 15 - 37 U/L 10/13/2023 8:43 PM T [facility] ALT 19 14 - 55 U/L 10/13/2023 8:43 PM T [facility] ALKALINE PHOSPHATASE S/P/B 82 50 - 136 U/L 10/13/2023 8:43 PM T [facility] ANION GAP 5.5 5 - 15 MMOL/L 10/13/2023 8:43 PM CDT [facility] BUN CREATININE RATIO 17.4 6 - 26 10/13/2023 8:43 PM T [facility] A/G RATIO 0.6(L) 1.0 - 2.0 RATIO 10/13/2023 8:43 PM T [facility] GFR ESTIMATE 74(L) >90 ML/MIN/1.7 3 M2 10/13/2023 8:43 PM CDT [facility] Comment: NOTE: eGFR is not calculated for patients <18 years of age. This is an estimated GFR calculation using the new CKD EPI creatinine equation without race and so does not require a correction factor for race. This estimated GFR should not be used for calculating drug doses. 10/13/2023 8:05 PM CDT Peter Schwartz MD LABORATORY Final Result [facility] [address] [place] [address], [place] [phone] * (ABNORMAL) CBC W/DIFF AUTOMATED (10/13/2023 8:05 PM CDT) WBC 11.65(H) 4.5 - 11.0 x10'3/uL 10/13/2023 8:25 PM CDT [facility] RBC 4.56 4.20 - 5.40 x10'6/uL 10/13/2023 8:25 PM CDT [facility] HGB 12.8 12.0 - 16.0 G/DL 10/13/2023 8:25 PM CDT [facility] HCT 40.9 38.0 - 48.0 % 10/13/2023 8:25 PM CDT [facility] MCV 89.7 81.0 - 99.0 FL 10/13/2023 8:25 PM CDT [facility] MCH 28.1 27.0 - 31.0 PG 10/13/2023 8:25 PM CDT [facility] MCHC 31.3(L) 32.0 - 36.0 G/DL 10/13/2023 8:25 PM CDT [facility] RDW 13.8 11.5 - 14.5 % 10/13/2023 8:25 PM CDT [facility] PLT 280 130 - 400 x10'3/uL 10/13/2023 8:25 PM CDT [facility] MPV 10.0 9.3 - 12.2 FL 10/13/2023 8:25 PM CDT [facility] DIFFERENTIAL TYPE AUTOMATED DIFFERENTIAL 10/13/2023 8:25 PM CDT [facility] NEUTROPHILS % 62.4 % 10/13/2023 8:25 PM CDT [facility] LYMPHOCYTES % 27.1 % 10/13/2023 8:25 PM CDT [facility] MONOCYTES % 7.5 % 10/13/2023 8:25 PM CDT [facility] EOSINOPHILS 2.3 % 10/13/2023 8:25 PM CDT [facility] BASOPHILS 0.3 % 10/13/2023 8:25 PM CDT [facility] IMMATURE GRANS % 0.4 % 10/13/19 8:25 PM CDT [facility] ABS. NEUTROPHILS 7.26 1.80 - 7.70 x10'3/uL 10/13/2023 8:25 PM CDT [facility] ABS. LYMPHOCYTES 3.16 1.00 - 4.80 x10'3/uL 10/13/2023 8:25 PM CDT [facility] ABS. MONOCYTES 0.87(H) 0.24 - 0.86 x10'3/uL 10/13/2023 8:25 PM CDT [facility] ABS. EOSINOPHILS 0.27 0.04 - 0.36 x10'3/uL 10/13/2023 8:25 PM CDT [facility] ABS. BASOPHILS 0.04 0.01 - 0.08 x10'3/uL 10/13/2023 8:25 PM CDT [facility] ABS. IMMATURE GRANULOCYTES 0.05 0.00 - 0.49 x10'3/uL 10/13/2023 8:25 PM CDT [facility] 10/13/2023 8:05 PM CDT Peter Schwartz MD LABORATORY Final Result [facility] [address] [place] [address], [place] [phone] documented in this encounter Visit Diagnoses Diagnosis [...] Physician] documented in this encounter Care Teams Linux Unix Administrator Relationship Specialty Start Date End Date Gerardo Hoffman MD [address] [facility] [address] [place] [address] PCP - General FAMILY PRACTICE 08/20/17 Meena Bansal MD [address] [facility] [address] [place] [address] [place] Heel Reducer CARDIOVASCULAR DISEASE 04/24/16 documented as of this encounter
--- OUTSIDE RECORDS SUMMARY | 2024-04-26 07:00 | XMS_ITS | Encounter Summary ---
Author Organization [facility] Address [address] [place] [address]. [place] [address] [place] [address] Care Team Providers Care Glost Kiln Operator Name Role Phone Meena Bansal MD Unavailable [phone] Justen Gale MD Primary Care Provider [phone] Reason for Visit * Reason Onset Date Comments Follow Up Call 10/18/2023 SHELBY 10/12-10/13 Encounter Details Date Type Department Care Team (Latest Contact Info) Description 10/18/2023 Hospital Follow-up Call [facility] [place] [address] Lyubov Alcazar Follow Up Call (SHELBY 10/12-10/13) Social History Tobacco Use Types Packs/Day Years Used Date Smoking Tobacco: Former Cigarettes 0.3 2 1 05/23/1974 - 03/23/1977 Smokeless Tobacco: Never Alcohol Use Standard Drinks/Week Comments No 0 (1 standard drink = 0.6 oz pur e alcohol) [facility] Utilities Answer Date Recorded In the past 12 months has e electric, gas, oil, or water [employer] threatened to shut off services in your [...] any time in the past 12 m [facility], were you homeless or living in a [place] health care facility (including now)? 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. [facility] [address] [place] [address] PCP - General FAMILY PRACTICE 08/20/[address] [facility]. [facility] [address] [place] [address] José Luis Senior Research Fellow CARDIOVASCULAR DISEASE 04/24/16 documented as of this encounter
--- OUTSIDE RECORDS SUMMARY | 2024-04-26 07:00 | XMS_ITS | Encounter Summary ---
Author Organization [facility] Address [address] [place] [address]. [place] [address] [place] [address] Care Team Providers Care Mail Superintendent Name Role Phone Meena Bansal MD Unavailable [phone] Justen Gale MD Primary Care Provider [phone] Reason for Visit * Reason Comments Shortness Of Breath * Auth/Cert (Routine) Specialty Diagnoses / Procedures Referred By Elyssa benavides Referred To Contact Diagnoses Pneumonia CAP (community acquired pneumonia) Procedures NONE Peggy Bland MD [address] [facility] [place] [address] Phone: tel: fax: Referral ID Status Reason Start Date Expiration Date Visits Re quested Visits Authorized [id number] 1 1 Encounter Details Date Type Department Care Team (Late st Contact Info) Description 10/13/2023 12:38 AM CDT - 10/13/2023 5:16 AM CDT Emergency [facility] [place] [address] Adriel Shepherd MD,PHD [address] [place] [address] [id number] Shortness Of Breath Discharge Disposition: Home or Self Care (Routine Discharge) Social History Tobacco Use Types Packs/Day Years Used Date Smoking Tobacco: Former Cigarettes 0.3 2 1 05/23/1974 - 03/23/1977 Smokeless Tobacco: Never Alcohol Use Standard Drinks/Week Comments No 0 (1 standard drink = 0.6 oz pur e alcohol) [facility] Utilities Answer Date Recorded In the [...] any time in the past 12 m [facility], were you homeless or living in a care home (including now)? 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 * Community-acquired pneumonia in adults (German) documented in this encounter Medications at Time [...] XR CHEST PORTABLE Final Result by User, [id number] (10/12 010) EXAMINATION: XR CHEST PORTABLE, 10/13/2023 [...] is not hypoxic I interpreted the patient's monitor worker as showing a sinus rhythm and hemodynamic stability Medication management: Lefamulin is prescribed for treatment of community-acquired pneumonia, selected due to the patient's numerous antibiotic allergies Pulmonary embolism was considered extremely unlikely in this patient that is anticoagulated. Additionally a diagnosis of a pulmonary embolism would be unlikely to property management specialist given that the patient is anticoagulated, not hypoxic, and hemodynamically stable. A CTA of the chest was considered but deemed to be unlikely to property management specialist and thus not ordered. Acute coronary syndrome [...] 20 tablet, Refills: 0 Class: Eprescribe [id number] &PEAK ( #: [phone]) Disposition: Discharge home Patient provided with printed [...] RNA NEGATIVE NEGATIVE 10/13/2023 4:24 AM CDT [facility] Comment: NEGATIVE RESULTS DO NOT RULE [...] SPECIMEN TYPE NASAL 10/13/2023 3:41 AM CDT [facility] NASAL STRUCTURE / Unknown 10/13/2023 3:41 AM CDT Adriel Shepherd MD,PHD MICROBIOLOGY - GENERAL ORD ERABLES Final Result [facility] [address] [place] [address], [place] [phone] * TROPONIN, QUANT (10/13/2023 3:40 AM CDT) TROPONIN I HIGH SENSITIVITY 7 <54 ng/L 10/13/2023 4:35 AM CDT [facility] Comment: HIGH DOSES OF BIOTIN, TROPONIN-SPECIFIC AUTOANTIBODIES, AND ANTIBODY THERAPY CONTAINING HAMA MAY INTERFERE WITH THIS TEST RESULT. CORRELATION TO CLINICAL HISTORY AND PRESENTATION RECOMMENDED. 10/13/2023 3:40 AM CDT Adriel Shepherd MD,PHD LABORATORY Final Resu lt Performing Organization Address City/[facility]/ZIP Co de Phone Number [facility] [address] [place] [address], [place] [phone] * INFLUENZA A & B, RAPID (10/13/2023 3:40 AM CDT) SPECIMEN TYPE NASAL 10/13/2023 3:58 AM CDT [facility] INFLUENZA A NEGATIVE NEGATIVE 10/13/2023 4:24 AM CDT [facility] INFLUENZA B NEGATIVE NEGATIVE 10/13/2023 4:24 AM CDT [facility] Comment: Interpretation: Negative for [...] ORD ERABLES Final Result Performing Organization Address [facility] Co de Phone Number [facility] [address] [place] [address], [place] [phone] * PRO-BRAIN NATRIURETIC PEPTIDE (10/13/2023 3:40 AM CDT) PRO-B TYPE NATRIURETIC PEPTIDE 65 <125 PG/ML 10/13/2023 4:35 AM CDT [facility] Comment: CUT POINTS ESTABLISHED BY [...] LABORATORY Final Resu lt Performing Organization Address City/[facility] Co de Phone Number [facility] [address] [place] [address], [place] [phone] * XR CHEST PORTABLE (10/13/2023 1:05 AM [...] AM CDT) 10/13/2023 1:02 AM CDT Narrative [facility] - 10/14/2023 11:40 AM CDT ?[facility] ? [address] ? Test Date: ?2023-10-13 Pat Name: ? MOHSEN MARQUES ?Department: ?? 41 ? Room: ? Gender: ? Female ? Flight Superintendent: ?? [id number] : ?1955 ? Requested By: ANGLE MC Order Number: [id number] ? Reading MD: ?? Karlos Amor ? Measurements Intervals ?[place] ? Rate: ? 65 ? P: ?22 [place]: ? 143 ?QRS: ?-4 QRSD: ? 92 [...] Note Karlos Amor MD - 10/14/2023 [facility] Test Date: 2023-10-13 Pat Name: MOHSEN MARQUES Department: 41 Room: Gender: Female Flight Superintendent: [id number] : 1955 Requested By: ANGLE MC Order Number: [id number] Felipe MD: Karlos Amor Measurements Intervals [place] Rate: 65 P: 22 [place]: 143 QRS: -4 QRSD: 92 T: 24 [...] present [facility] ECG ORDERABLES Final Result [facility] * TROPONIN, QUANT (10/13/2023 12:55 AM CDT) [facility] TROPONIN I HIGH SENSITIVITY 8 <54 ng/L 10/13/2023 1:43 AM CDT [facility] Comment: HIGH DOSES OF BIOTIN, TROPONIN-SPECIFIC AUTOANTIBODIES, AND ANTIBODY THERAPY CONTAINING HAMA MAY INTERFERE WITH THIS TEST RESULT. CORRELATION TO CLINICAL HISTORY AND PRESENTATION RECOMMENDED. 10/13/2023 12:5 5 AM CDT [facility] LABORATORY Final Result Performing Organization Address [facility]/ZIP Co de Phone Number [facility] [address] [place] [address], [place] [phone] * (ABNORMAL) COMPREHENSIVE METABOLIC PANEL (10/13/2023 12:55 AM CDT) Pathologist [facility] GLUCOSE 160(H) 70 - 99 MG/DL 10/13/2023 1:43 AM CDT [facility] BUN 16 7 - 18 MG/DL 10/13/2023 1:43 AM CDT [facility] CREATININE S/P/B 0.85 0.55 - 1.02 MG/DL 10/13/2023 1:43 AM CDT [facility] SODIUM S/P/B 138 136 - 145 MMOL/L 10/13/2023 1:43 AM CDT [facility] POTASSIUM S/P/B 3.9 3.5 - 5.1 MMOL/L 10/13/2023 1:43 AM T [facility] CHLORIDE S/P/B 104 100 - 108 MMOL/L 10/13/2023 1:43 AM CDT [facility] CO2 29.9 21 - 32 MMOL/L 10/13/2023 1:43 AM T [facility] CALCIUM S/P/B 9.4 8.5 - 10.1 MG/DL 10/13/2023 1:43 AM T [facility] BILIRUBIN TOTAL S/P/B 0.4 0.2 - 1.2 MG/DL 10/13/2023 1:43 AM T [facility] Comment: THIS ASSAY IS NOT RECOMMENDED FOR PATIENTS UNDERGOING TREATMENT WITH ELTROMBOPAG DUE TO THE POTENTIAL FOR FALSELY ELEVATED RESULTS. TOTAL PROTEIN S/P/B 8.2 6.4 - 8.2 G/DL 10/13/2023 1:43 AM T [facility] ALBUMIN S/P/B 3.1(L) 3.4 - 5.0 G/DL 10/13/2023 1:43 AM T [facility] AST 16 15 - 37 U/L 10/13/2023 1:43 AM T [facility] ALT 22 14 - 55 U/L 10/13/2023 1:43 AM T [facility] ALKALINE PHOSPHATASE S/P/B 83 50 - 136 U/L 10/13/2023 1:43 AM T [facility] ANION GAP 4.1(L) 5 - 15 MMOL/L 10/13/2023 1:43 AM T [facility] BUN CREATININE RATIO 18.8 6 - 26 10/13/2023 1:43 AM CDT [facility] A/G RATIO 0.6(L) 1.0 - 2.0 RATIO 10/13/2023 1:43 AM CDT [facility] GFR ESTIMATE 75(L) >90 ML/MIN/1.7 3 M2 10/13/2023 1:43 AM CDT [facility] Comment: NOTE: eGFR is not calculated for patients <18 years of age. This is an estimated GFR calculation using the new CKD EPI creatinine equation without race and so does not require a correction factor for race. This estimated GFR should not be used for calculating drug doses. 10/13/2023 12:5 5 AM CDT [facility] Final Result [facility] [address] [place] [address], [place] [phone] * (ABNORMAL) CBC W/DIFF AUTOMATED (10/13/2023 12:55 AM CDT) WBC 10.53 4.5 - 11.0 x10'3/uL 10/13/2023 1:17 AM CDT [facility] RBC 4.61 4.20 - 5.40 x10'6/uL 10/13/2023 1:17 AM CDT [facility] HGB 12.9 12.0 - 16.0 G/DL 10/13/2023 1:17 AM CDT [facility] HCT 41.9 38.0 - 48.0 % 10/13/2023 1:17 AM CDT [facility] MCV 90.9 81.0 - 99.0 FL 10/13/2023 1:17 AM CDT [facility] MCH 28.0 27.0 - 31.0 PG 10/13/2023 1:17 AM CDT [facility] MCHC 30.8(L) 32.0 - 36.0 G/DL 10/13/2023 1:17 AM CDT [facility] RDW 13.9 11.5 - 14.5 % 10/13/2023 1:17 AM CDT [facility] PLT 282 130 - 400 x10'3/uL 10/13/2023 1:17 AM CDT [facility] MPV 9.9 9.3 - 12.2 FL 10/13/2023 1:17 AM CDT [facility] DIFFERENTIAL TYPE AUTOMATED DIFFERENTIAL 10/13/2023 1:17 AM T [facility] NEUTROPHILS % 59.8 % 10/13/2023 1:17 AM CDT [facility] LYMPHOCYTES % 29.8 % 10/13/2023 1:17 AM CDT [facility] MONOCYTES % 6.8 % 10/13/2023 1:17 AM CDT [facility] EOSINOPHILS 2.7 % 10/13/2023 1:17 AM CDT [facility] BASOPHILS 0.5 % 10/13/2023 1:17 AM CDT [facility] IMMATURE GRANS % 0.4 % 10/13/19 1:17 AM CDT [facility] ABS. NEUTROPHILS 6.30 1.80 - 7.70 x10'3/uL 10/13/2023 1:17 AM CDT [facility] ABS. LYMPHOCYTES 3.14 1.00 - 4.80 x10'3/uL 10/13/2023 1:17 AM CDT [facility] ABS. MONOCYTES 0.72 0.24 - 0.86 x10'3/uL 10/13/2023 1:17 AM CDT [facility] ABS. EOSINOPHILS 0.28 0.04 - 0.36 x10'3/uL 10/13/2023 1:17 AM CDT [facility] ABS. BASOPHILS 0.05 0.01 - 0.08 x10'3/uL 10/13/2023 1:17 AM CDT [facility] ABS. IMMATURE GRANULOCYTES 0.04 0.00 - 0.49 x10'3/uL 10/13/2023 1:17 AM CDT [facility] 10/13/2023 12:5 5 AM CDT [facility] Final Result [facility] [address] [place] [address], documented in this encounter Visit Diagnoses Diagnosis [...] documented as of this encounter Care Teams Mail Superintendent Relationship Specialty Start Date End Date Justen Gale MD [facility]. [address] [address] PCP - General FAMILY PRACTICE 08/20/17 Meena Bansal MD [facility]. [address] [address] José Luis Dye Maker CARDIOVASCULAR DISEASE 04/24/16 documented as of this encounter
--- OUTSIDE RECORDS SUMMARY | 2024-04-26 07:01 | XMS_ITS | Encounter Summary ---
Author Organization [facility] Address [address] [place] [address]. 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 Yes 04/19/2021 8:07 PM PROFESSIONAL HOUSING CONSULTANT documented as of this encounter Functional Status [...] Rule Out 04/19/2021 04/19/2021 04/19/2021 10:15 PM PROFESSIONAL HOUSING CONSULTANT COVID-19 Confirmed 04/19/2021 04/19/2021 12:32 AM PROFESSIONAL HOUSING CONSULTANT documented as of this encounter Care Teams Hand Crocheter Relationship Specialty Start Date End Date Justen Gale MD [facility]. [address] [place] [address] PCP - General FAMILY PRACTICE 08/20/17 Meena Bansal MD [facility]. [address] [place] [address] José Luis Freight Elevator Erector CARDIOVASCULAR DISEASE 04/24/16 documented as of this encounter
--- OUTSIDE RECORDS SUMMARY | 2024-04-26 07:01 | XMS_ITS | Encounter Summary ---
Author Organization [facility] Address [address] [place] [address]. [place] [address] [place] [address] Care Team Providers Care Joy Loading Machine Operator Name Role Phone Meena Bansal MD Unavailable [phone] Justen Gale MD Primary Care Provider [phone] Reason for Referral * Imaging (Emergency) - Closed Specialty Diagnoses / Procedures Referred By Contac t Referred To Contact RADIOLOGY Procedures CT SOFT TISSUE NECK W CON Emelyn Mari MD [address] [place] [address] Phone: tel: fax: Referral ID Status Reason Start Date Expiration Date Visits Re quested Visits Authorized [id number] Closed 10/26/2021 11/26/2022 1 1 * Imaging (Emergency) - Closed Specialty Diagnoses / Procedures Referred By Contac t Referred To Contact RADIOLOGY Procedures CT ABD+PEL WO CON Emelyn Mari MD [address] [place] [address] Phone: tel: fax: Referral ID Status Reason Start Date Expiration Date Visits Re quested Visits Authorized [id number] Closed 10/26/2021 11/26/2022 1 1 Reason for Visit * Reason Comments Urinary Symptoms Sore Throat Encounter Details Date Type Department Care Team (Late st Contact Info) Description 10/26/2021 6:33 PM CDT - 10/27/2021 2:06 AM CDT Emergency [facility] [place] [address] Emelyn Mari MD [address] [place] [address] [phone] Urinary Symptoms; Sore Throat Discharge Disposition: Home [...] Sexual Orientation Straight 03/18/2018 3: 01 AM 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 * Dysphagia (Emirati) * High Blood Sugar, Adult (Emirati) documented in this encounter Medications at Time [...] back surgery over 1 month ago in [place]. She states after her surgery she developed a UTI. She has been on antibiotics intermi ttently for 1 month. She states she has multiple antibiotic allergies so her UTI has been difficultto treat. She has been evaluated at [facility] twice over the past month. She states she was diagnosed with strep and UTI initially. She has been taking antibiotics. She was seen at [facility]. She called her PCP today and [...] History provided by: Patient and medical records lang interpreter used: No Urinary Symptoms This is a [...] Left Ear: External ear normal. Mouth/Throat: Lips: [place]. Mouth: Mucous membranes are moist. 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 Mild colonic diverticulosis without diverticulitis. Ouoc-fd-tafindis stool in the colon. Appendix is normal. [...] and hypoplastic L5/S1 disc. 3. Advanced sacroiliitis. Dlyh-si-xixperzq pubic osteitis. 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 PT states that she is SOB and not being able to eat. She also believes that she has a UTI. * Serenity Martinez APRN - 10/26/2021 6:17 PM CDT [place], [place] EMERGENCY DEPARTMENT ENCOUNTER Medical Screening Examination [...] states that she has been seen at [facility]. She recently had a surgery on her [...] - 99 mg/dL 10/26/2021 10:59 PM CDT [facility] 10/26/2021 10:5 7 PM CDT us Emelyn Mari MD POCT ORDERABLES - DEVICE Deann l Result [facility] [address] [place] [address], [place] [phone] * CT SOFT TISSUE NECK W CON [...] and hypoplastic L5/S1 disc. 3. ??Advanced sacroiliitis. ??Qqpv-yp-gqyauwpf pubic osteitis. ??Mild spondylosis in the lumbar [...] the stomach. ??Mild colonic diverticulosis without diverticulitis. ??Axxo-ia-pcaejpnx stool in the colon. ??Appendix is normal. [...] in the stomach. Mild colonic diverticulosis withoutdiverticulitis. Lbbq-do-luextovg stool in the colon. Appendix is normal.No [...] and hypoplastic L5/S1 disc. 3. Advanced sacroiliitis. Nrei-ob-yogyjhyy pubic osteitis. Mildspondylosis in the lumbar and [...] 10/26/2021 7:24 PM us Serenity Storey Juan HOT KNIFE CUTTER GENERAL IMAGING Final Result * ECG 12 lead (10/26/2021 7:11 PM CDT) 10/26/2021 7:[address] [facility] MIGUELANGEL YOU ([place]) RAD - 10/26/2021 8:00 PM CDT ?[facility] el[facility] José Luis ? [address] [place] ? Test Date: ?2021-10-26 Pat Name: ? MOHSEN MARQUES ?Department: ?? 41 ? Room: ? INPR Gender: ? Female ? Engineer Of System Development: ?? : ?1955 ? Requested By: SERENITY MARTINEZ Order Number: [id number] ? Reading MD: ?? Noe Cowan ? Measurements Intervals ?[place] ? Rate: ? 86 ? P: ?43 MT: ? 128 ?QRS: ?13 QRSD: ? 91 ? T: ?64 QT: ? 341 ? QTc: ?409 ? 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1955 Requested By: SERENITY MARTINEZ Order Number: [id number] Reading MD: Noe Cowan Measurements Intervals [place] Rate: 86 P: 43 MT: 128 QRS: 13 QRSD: 91 T: 64 QT: 341 QTc: 409 Interpretive Statements SINUS RHYTHM NONSPECIFIC T-WAVE ABNORMALITY Compared to ECG 07/19/2021 13:55:41 T-wave abnormality now present Other ischemic changes, not STEMI Jimmie Ceron, PA-C CRITICAL ALERT ISSUED ON 10-26-2021 19:13:15 us Serenity Yatesr HOT KNIFE CUTTER ECG ORDERABLES Final Result Performing Organization Address City/[facility]/ZIP Co de Phone Number [facility] * CULTURE THROAT ALL ORG (10/26/2021 6:54 PM CDT) SPEC DESCRIPTION THROAT 10/26/2021 6:54 PM CDT [facility] SPECIAL REQUESTS NO SPECIAL REQUEST 10/26/2021 6:54 PM CDT [facility] CULTURE RESULT LIGHT GROWTH OF NORMAL YESENIA PRESENT 10/28/2021 7:00 AM CDT [facility] THROAT SWAB / Unknown 10/26/2021 6:54 PM CDT 10/26/2021 7:06 PM CDT us Serenity Martinez HOT KNIFE CUTTER MICROBIOLOGY - GENERAL ORDERA BLES Final Result [facility] [address] [place] [address], [place] [phone] * CULTURE URINE (10/26/2021 6:52 PM CDT) SPEC DESCRIPTION URINE CLEAN CATCH 10/26/2021 7:32 PM CDT [facility] SPECIAL REQUESTS NO SPECIAL REQUEST 10/26/2021 7:32 PM CDT [facility] CULTURE RESULT NO GROWTH 2 DAYS 10/28/2021 8:27 AM CDT [facility] URINE SPECIMEN OBTAINED BY CLEAN CATCH PROCEDURE / Unknown 10/26/2021 6:52 PM CDT 10/26/2021 7:30 PM CDT us Serenity Yatesr HOT KNIFE CUTTER MICROBIOLOGY - GENERAL ORDERA BLES Final Result [facility] [address] [place] [id number], [place] [phone] * LACTIC ACID (10/26/2021 6:52 PM CDT) LACTIC ACID VENOUS 1.7 0.4 - 2.0 MMOL/L 10/26/2021 8:00 PM CDT [facility] 10/26/2021 6:52 PM CDT us Serenity Yatesr HOT KNIFE CUTTER LABORATORY Final Result Performing Organization Address [facility] Co de Phone Number [facility] [address] [place] [address], [place] [phone] * CULTURE, BACTERIA, BLOOD (10/26/2021 6:52 PM CDT) SPEC DESCRIPTION BLOOD 10/26/2021 6:23 PM CDT [facility] SPECIAL REQUESTS NO SPECIAL REQUEST 10/26/2021 6:23 PM CDT [facility] CULTURE RESULT NO GROWTH 5 DAYS 10/31/2021 12:54 PM CDT [facility] BLOOD SPECIMEN OBTAINED FOR BLOOD CULTURE / Unknown 10/26/2021 6:52 PM CDT 10/26/2021 7:05 PM CDT us Serenity Yatesr HOT KNIFE CUTTER MICROBIOLOGY - GENERAL ORDERA BLES Final Result [facility] [address] [place] [phone], * CULTURE, BACTERIA, BLOOD (10/26/2021 6:52 PM CDT) SPEC DESCRIPTION BLOOD 10/26/2021 6:23 PM CDT [facility] SPECIAL REQUESTS NO SPECIAL REQUEST 10/26/2021 6:23 PM CDT [facility] CULTURE RESULT NO GROWTH 5 DAYS 10/31/2021 12:54 PM CDT [facility] BLOOD SPECIMEN OBTAINED FOR BLOOD CULTURE / Unknown 10/26/2021 6:52 PM CDT 10/26/2021 7:05 PM CDT Serenity Martinez HOT KNIFE CUTTER MICROBIOLOGY - GENERAL ORDERA BLES Final Result Performing Organization Address [facility]/ZIP Co de Phone Number [facility] [address] [place] [address], [place] [phone] * TROPONIN, QUANT (10/26/2021 6:52 PM CDT) TROPONIN I HIGH SENSITIVITY 11 <54 ng/L 10/26/2021 7:39 PM CDT [facility] Comment: HIGH DOSES OF BIOTIN, TROPONIN-SPECIFIC AUTOANTIBODIES, AND ANTIBODY THERAPY CONTAINING HAMA MAY INTERFERE WITH THIS TEST RESULT. CORRELATION TO CLINICAL HISTORY AND PRESENTATION RECOMMENDED. 10/26/2021 6:52 PM CDT us Serenity Yatesr HOT KNIFE CUTTER LABORATORY Final Result Performing Organization Address City/[facility]/ZIP Co de Phone Number [facility] [address] [place] [address], [place] [phone] * (ABNORMAL) URINALYSIS WI REFLEX TO CULTURE (10/26/2021 6:52 PM CDT) SPECIMEN TYPE URINE CLEAN CATCH 10/26/2021 6:51 PM CDT [facility] COLOR (U) LIGHT YELLOW 10/26/2021 7:29 PM T [facility] TRANSPARENCY CLEAR 10/26/2021 7:29 PM T [facility] SPECIFIC GRAVITY (U) 1.028 1.001 - 1.030 10/26/2021 7:29 PM T [facility] U PH 5.0 5.0 - 9.0 10/26/2021 7:29 PM T [facility] LEUKOCYTES (U) 25(A) NEGATIVE 10/26/2021 7:29 PM CDT [facility] NITRITES NEGATIVE NEGATIVE 10/26/2021 7:29 PM T [facility] PROTEIN (U) NEGATIVE <30 MG/DL 10/26/2021 7:29 PM T [facility] URINE GLUCOSE >1000(A) NORMAL MG/DL 10/26/2021 7:29 PM T [facility] KETONES MG/DL (U) NEGATIVE NEGATIVE MG/DL 10/26/2021 7:29 PM T [facility] UROBILINOGEN NORMAL NORMAL MG/DL 10/26/2021 7:29 PM T [facility] BILIRUBIN (U) NEGATIVE NEGATIVE MG/DL 10/26/2021 7:29 PM T [facility] BLOOD (U) 1+(A) NEGATIVE 10/26/2021 7:29 PM T [facility] CULTURE & SENSITIVITY INDICATED? SPECIMEN SETUP FOR CULTURE 10/26/2021 7:[address] [facility] MUCUS RARE /LPF 10/26/2021 7:[address] [facility] WBC/HPF 22(H) <6 /HPF 10/26/2021 7:29 PM T [facility] RBC/HPF 3 <6 /HPF 10/26/2021 7:29 PM CDT [facility] URINE SPECIMEN OBTAINED BY CLEAN CATCH PROCEDURE / Unknown 10/26/2021 6:52 PM CDT Serenity Martinez HOT KNIFE CUTTER URINE ORDERABLES Final Result [facility] [address] [place] [address], [place] [phone] * (ABNORMAL) COMPREHENSIVE METABOLIC PANEL (10/26/2021 6:52 PM CDT) GLUCOSE 364(H) 70 - 99 MG/DL 10/26/2021 7:39 PM CDT [facility] BUN 22(H) 7 - 18 MG/DL 10/26/2021 7:39 PM CDT [facility] CREATININE S/P/B 1.11(H) 0.55 - 1.02 MG/DL 10/26/2021 7:39 PM CDT [facility] SODIUM S/P/B 136 136 - 145 MMOL/L 10/26/2021 7:39 PM CDT [facility] POTASSIUM S/P/B 4.2 3.5 - 5.1 MMOL/L 10/26/2021 7:39 PM CDT [facility] CHLORIDE S/P/B 104 100 - 108 MMOL/L 10/26/2021 7:39 PM CDT [facility] CO2 22.1 21 - 32 MMOL/L 10/26/2021 7:39 PM CDT [facility] CALCIUM S/P/B 9.3 8.5 - 10.1 MG/DL 10/26/2021 7:39 PM CDT [facility] BILIRUBIN TOTAL S/P/B 0.5 0.2 - 1.2 MG/DL 10/26/2021 7:39 PM T [facility] Comment: THIS ASSAY IS NOT RECOMMENDED FOR PATIENTS UNDERGOING TREATMENT WITH ELTROMBOPAG DUE TO THE POTENTIAL FOR FALSELY ELEVATED RESULTS. TOTAL PROTEIN S/P/B 8.9(H) 6.4 - 8.2 G/DL 10/26/2021 7:39 PM CDT [facility] ALBUMIN S/P/B 3.3(L) 3.4 - 5.0 G/DL 10/26/2021 7:39 PM CDT [facility] AST 12(L) 15 - 37 U/L 10/26/2021 7:39 PM T [facility] ALT 26 14 - 55 U/L 10/26/2021 7:39 PM T [facility] ALKALINE PHOSPHATASE S/P/B 83 50 - 136 U/L 10/26/2021 7:39 PM T [facility] ANION GAP 9.9 5 - 15 MMOL/L 10/26/2021 7:39 PM T [facility] BUN CREATININE RATIO 19.8 6 - 26 10/26/2021 7:39 PM T [facility] A/G RATIO 0.6(L) 1.0 - 2.0 RATIO 10/26/2021 7:39 PM T [facility] GFR ESTIMATE 55(L) >90 ML/MIN/1.7 3 M2 10/26/2021 7:39 PM T [facility] Comment: NOTE: eGFR is not calculated for patients <18 years of age. This is an estimated GFR calculation using the new CKD EPI creatinine equation without race and so does not require a correction factor for race. This estimated GFR should not be used for calculating drug doses. 10/26/2021 6:52 PM CDT Serenity Martinez H[employer] KNIFE C[employer]TER LABORATORY Final Result [facility] [address] [place] [address], * (ABNORMAL) CBC W/DIFF AUTOMATED (10/26/2021 6:52 PM CDT) WBC 16.2(H) 4.5 - 11.0 x10'3/uL 10/26/2021 7:16 PM CDT [facility] RBC 4.58 4.20 - 5.40 x10'6/uL 10/26/2021 7:16 PM CDT [facility] HGB 13.4 12.0 - 16.0 G/DL 10/26/2021 7:16 PM CDT [facility] HCT 42.8 38.0 - 48.0 % 10/26/2021 7:16 PM CDT [facility] MCV 93.4 81.0 - 99.0 FL 10/26/2021 7:16 PM CDT [facility] MCH 29.3 27.0 - 31.0 PG 10/26/2021 7:16 PM CDT [facility] MCHC 31.3(L) 32.0 - 36.0 G/DL 10/26/2021 7:16 PM CDT [facility] RDW 14.0 11.5 - 14.5 % 10/26/2021 7:16 PM CDT [facility] PLT 345 130 - 400 x10'3/uL 10/26/2021 7:16 PM CDT [facility] MPV 9.9 9.3 - 12.2 FL 10/26/2021 7:16 PM CDT [facility] DIFFERENTIAL TYPE AUTOMATED DIFFERENTIAL 10/26/2021 7:16 PM CDT [facility] NEUTROPHILS % 75.5 % 10/26/2021 7:16 PM CDT [facility] LYMPHOCYTES % 15.7 % 10/26/2021 7:16 PM CDT [facility] MONOCYTES % 7.9 % 10/26/2021 7:16 PM CDT [facility] EOSINOPHILS 0.1 % 10/26/2021 7:16 PM CDT [facility] BASOPHILS 0.2 % 10/26/2021 7:16 PM CDT [facility] IMMATURE GRANS % 0.6 % 10/27/19 7:16 PM CDT [facility] ABS. NEUTROPHILS TOTAL 12.20(H) 1.80 - 7.70 x10'3/uL 10/26/2021 7:16 PM CDT [facility] ABS. LYMPHOCYTES 2.54 1.00 - 4.80 x10'3/uL 10/26/2021 7:16 PM CDT [facility] ABS. MONOCYTES 1.28(H) 0.24 - 0.86 x10'3/uL 10/26/2021 7:16 PM CDT [facility] ABS. EOSINOPHILS 0.01(L) 0.04 - 0.36 x10'3/uL 10/26/2021 7:16 PM CDT [facility] ABS. BASOPHILS 0.03 0.01 - 0.08 x10'3/uL 10/26/2021 7:16 PM CDT [facility] ABS. IMMATURE GRANULOCYTES 0.10 0.00 - 0.49 x10'3/uL 10/26/2021 7:16 PM CDT [facility] 10/26/2021 6:52 PM CDT us Serenity Martinez [facility] Final Result [facility] [address] [place] [address], [place] [phone] documented in this encounter Visit Diagnoses Diagnosis Odynophagia- Primary Dysphagia, unspecified Hyperglycemia due to diabetes mellitus ([facility]) 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) Urinary tract infection, [...] RTR) documented in this encounter Care Teams Joy Loading Machine Operator Relationship Specialty Start Date End Date Justen Gale MD [address] [place] [id number] [place] [address] PCP - General FAMILY PRACTICE 08/20/17 Meena Bansal MD [facility]. [facility] [address] [place] [address] [place] Test Fixture Designer CARDIOVASCULAR DISEASE 04/24/16 documented as of this encounter
--- OUTSIDE RECORDS SUMMARY | 2024-04-26 07:01 | XMS_ITS | Encounter Summary ---
Author Organization [facility] Address [address] [place] [address]. [place] [address] [place] [address] Care Team Providers Care Document Controller Name Role Phone Meena Bansal MD Unavailable [phone] Justen Gale MD Primary Care Provider [phone] Reason for Visit * Reason Comments Chest Pain Encounter Details Date Type Department Care Team (Late st Contact Info) Description 03/03/2021 1:02 AM FREIGHT CONDUCTOR - 03/03/2021 5:33 AM FREIGHT CONDUCTOR Emergency [facility] Emergency [place] [address] [place], [place] [id number] Jaswinder Gaytan MD [address] [place] [address] Chest Pain Discharge Disposition: Home or Self [...] Sexual Orientation Straight 03/18/2018 3: 01 AM FREIGHT CONDUCTOR COVID-19 Exposure Response Date Recorded In the last month, have you been in contact with someone who was confirmed or suspected to have Coronavirus / COVID-19? No / Unsure 03/03/2021 2:01 AM FREIGHT CONDUCTOR documented as of this encounter Last Filed Vital Signs Vital Sign Reading Time Taken Comments Blood Pressure 123/69 03/03/2021 5:00 AM FREIGHT CONDUCTOR Pulse 75 03/03/2021 5:10 AM FREIGHT CONDUCTOR Temperature 36.7 ??C (98 ??F) 03/03/2021 1:11 AM FREIGHT CONDUCTOR Respiratory Rate 18 03/03/2021 5:10 AM FREIGHT CONDUCTOR Oxygen Saturation 96% 03/03/2021 5:10 AM FREIGHT CONDUCTOR Inhaled Oxygen Concentration - - Weight 131.5 kg (289 lb 14.5 oz) 03/03/2021 1:11 AM FREIGHT CONDUCTOR Height 154.9 cm (5' 1 ) 03/03/2021 1:11 AM FREIGHT CONDUCTOR Body Mass Index 54.78 03/03/2021 1:11 AM FREIGHT CONDUCTOR documented in this encounter Functional Status * [...] Jaswinder Gaytan MD - 03/03/2021 5:03 AM FREIGHT CONDUCTOR Emergency Departments (ED) provide medical screening exams [...] by your primary care physician or business system consultant. Your medication list was reviewed prior [...] such as many narcotic drug combinations and yngo-tso-rvisjhp cold medicines. Your feedback is important to us. Please fill out the survey you will get in the mail. We need yourinput to give you the best care possible! With your feedback we??ll know where we need to focus ourefforts to provide very good service to our patients! GHT CONDUCTOR * Attachments The following attachments cannot be sent through Care Everywhere. * Chest Pain Discharge Instructions (Barbadian) * High Blood Pressure Discharge Instructions (Barbadian) documented in this encounter Medications at Time [...] encounter of 03/03/21 ECG 12 lead Narrative [facility] [address] [place] [address] Test Date: 2021-03-03 Pat Name: MOHSEN MARQUES Department: Room: Gender: Female Manager Package: ILYA : 1955 Requested By: JASWINDER GAYTAN Order Number: [id number] Reading MD: Ramon Byrd Measurements Intervals [place] Rate: 100 P: 21 SD: 140 QRS: 14 QRSD: 94 T: 52 QT: 342 QTc: 441 Interpretive Statements SINUS TACHYCARDIA ABNORMAL RHYTHM ECG Compared to ECG 01/06/2021 18:53:02 Sinus rhythm no longer present GHT CONDUCTOR ECG 12 lead Narrative [facility] [address] [place] [address] Test Date: 2021-03-03 Pat Name: MOHSEN MARQUES Department: Room: Gender: Female Manager Package: ALIX : 1955 Requested By: JASWINDER GAYTAN Order Number: [id number] Reading : Ramon Byrd Measurements Intervals [place] Rate: 81 P: 36 SD: 135 QRS: 1 QRSD: 90 T: 31 QT: 382 QTc: 444 Interpretive Statements SINUS RHYTHM Compared to ECG 03/03/2021 00:59:40 Sinus tachycardia no longer present GHT CONDUCTOR LABORATORY STUDIES: Results for orders placed or [...] XR CHEST PORTABLE Final Result by User, [id number] (03/03 014) Examination: Chest radiograph Exam time: [...] breathing, or fever) that necessitate immediate return. [place] Heart Risk Score Documentation Heart Risk Score: [...] I dictated portions of this note using [employer] speech recognition software. Occasional wrong word or sound-alike substitutions may have occurred due to the inherent limitations of voice recognition software. Please read the chart carefully and recognize, using context, where the substitutions may have occurred. If there are any questions, please contact me via [employer] or other HIPAA compliant communication medium for clarification. Jaswinder Gaytan MD 03/04/21701 GHT CONDUCTOR * Heaven Romero RN - 03/03/2021 12:59 AM CST Pt to the ed reporting rt arm pain radiating to her chest since yesterday. Pt informed her providedand was told to come in for evaluation. Pt denies any SOB but reports some nausea.HEAVEN ROMERO RN GHT CONDUCTOR documented in this encounter Plan of Treatment Not on file documented as of this encounter Procedures Procedure Name Priority Date/Time Associated Diagnosis Comments ECG 12-LEAD STAT 03/03/2021 3:24 AM FREIGHT CONDUCTOR TROPONIN, QUANT STAT 03/03/2021 3:02 AM FREIGHT CONDUCTOR LIPASE STAT 03/03/2021 3:02 AM FREIGHT CONDUCTOR XR CHEST PORTABLE STAT 03/03/2021 1:4 0 AM FREIGHT CONDUCTOR COMPREHENSIVE METABOLIC PANEL STAT 03/03/2021 1:20 AM FREIGHT CONDUCTOR CBC W/DIFF AUTOMATED STAT 03/03/2021 1:20 AM FREIGHT CONDUCTOR TROPONIN, QUANT STAT 03/03/2021 1:20 AM FREIGHT CONDUCTOR ECG 12-LEAD STAT 03/03/2021 12:59 AM FREIGHT CONDUCTOR documented in this encounter Results * ECG 12 lead (03/03/2021 3:24 AM FREIGHT CONDUCTOR) 03/03/2021 3:24 AM FREIGHT CONDUCTOR Narrative [facility] ([facility] - 03/03/2021 9:11 PM FREIGHT CONDUCTOR ?[facility] ? [address] [place] ? Test Date: ?2021-03-03 Pat Name: ? MOHSEN MARQUES ?Department: ? Room: ? Gender: ? Female ? Manager Package: ?? EM : ?1955 ? Requested By: JASWINDER Zimmerman Number: [id number] ? Reading : ?? Ramon Byrd ? Measurements Intervals ?[place] ? Rate: ? 81 ? P: ?36 SD: ? 135 ?QRS: ?1 QRSD: ? 90 ? T: ?31 QT: ? 382 ? QTc: ?444 ? Interpretive Statements SINUS RHYTHM Compared to ECG 03/03/2021 00:59:40 Sinus tachycardia no longer present GHT CONDUCTOR Procedure Note Ramon Byrd MD - 03/03/2021 [facility] [address] [place] Test Date: 2021-03-03 Pat Name: MOHSEN MARQUES Department: Room: Gender: Female Manager Package: ALIX : 1955 Requested By: JASWINDER GAYTAN Order Number: [id number] Reading MD: Ramon Byrd Measurements Intervals [place] Rate: 81 P: 36 SD: 135 QRS: 1 QRSD: 90 T: 31 QT: 382 QTc: 444 Interpretive Statements SINUS RHYTHM Compared to ECG 03/03/2021 00:59:40 Sinus tachycardia no longer present GHT CONDUCTOR Jaswinder Gaytan MD ECG ORDERABLES Final Result Performing Organization Address City/[facility]/ZIP Co de Phone Number [facility] ([facility] * LIPASE (03/03/2021 3:02 AM FREIGHT CONDUCTOR) Pathologist [facility] LIPASE 89 73 - 393 UNITS/L 03/03/2021 4:[address] [facility] 03/03/2021 3:02 AM FREIGHT CONDUCTOR Jaswinder Gaytan MD LABORATORY Final Result Performing Organization Address [facility] Co de Phone Number [facility] [address] [place] [address], [place] [phone] * TROPONIN, QUANT (03/03/2021 3:02 AM FREIGHT CONDUCTOR) Pathologist [facility] TROPONIN I HIGH SENSITIVITY 8 <54 ng/L 03/03/2021 3:[address] [facility] Comment: HIGH DOSES OF BIOTIN, TROPONIN-SPECIFIC AUTOANTIBODIES, AND ANTIBODY THERAPY CONTAINING HAMA MAY INTERFERE WITH THIS TEST RESULT. CORRELATION TO CLINICAL HISTORY AND PRESENTATION RECOMMENDED. 03/03/2021 3:02 AM FREIGHT CONDUCTOR us Jaswinder Gaytan MD LABORATORY Final Result Performing Organization Address [facility] Co de Phone Number [facility] [address] [place] [address], [place] [phone] * XR CHEST PORTABLE (03/03/2021 1:40 AM FREIGHT CONDUCTOR) Anatomical Region Laterality Modality Chest Radiographic Lizeth ging 03/03/2021 1:43 AM FREIGHT CONDUCTOR Impressions 03/03/2021 1:45 AM FREIGHT CONDUCTOR IMPRESSION: Prominent cardiac silhouette most likely secondary to mildly prominent epicardial fat pads as seen on CTA chest 01/06/2021. No radiographic evidence of acute disease. Referred By: JASWINDER GAYTAN Interpreted By: Luís Gómez MD, 03/03/2021 1:43 AM Narrative 03/03/2021 1:45 AM FREIGHT CONDUCTOR Examination: Chest radiograph Exam time: 03/03/2021 1:31 [...] Result * TROPONIN, QUANT (03/03/2021 1:20 AM FREIGHT CONDUCTOR) TROPONIN I HIGH SENSITIVITY 9 <54 ng/L 03/03/2021 2:02 AM [facility] Comment: HIGH DOSES OF BIOTIN, TROPONIN-SPECIFIC AUTOANTIBODIES, AND ANTIBODY THERAPY CONTAINING HAMA MAY INTERFERE WITH THIS TEST RESULT. CORRELATION TO CLINICAL HISTORY AND PRESENTATION RECOMMENDED. 03/03/2021 1:20 AM FREIGHT CONDUCTOR Jaswinder Gaytan MD LABORATORY Final Result [facility] [address] [place] [address], [place] [phone] * (ABNORMAL) COMPREHENSIVE METABOLIC PANEL (03/03/2021 1:20 AM FREIGHT CONDUCTOR) GLUCOSE 139(H) 70 - 99 MG/DL 03/03/2021 2:02 AM [facility] BUN 25(H) 7 - 18 MG/DL 03/03/2021 2:02 AM [facility] CREATININE S/P/B 0.82 0.55 - 1.02 MG/DL 03/03/2021 2:02 AM [facility] SODIUM S/P/B 137 136 - 145 MMOL/L 03/03/2021 2:02 AM [facility] POTASSIUM S/P/B 4.0 3.5 - 5.1 MMOL/L 03/03/2021 2:02 AM [facility] CHLORIDE S/P/B 105 100 - 108 MMOL/L 03/03/2021 2:02 AM [facility] CO2 28.2 21 - 32 MMOL/L 03/03/2021 2:02 AM [facility] CALCIUM S/P/B 9.0 8.5 - 10.1 MG/DL 03/03/2021 2:02 AM [facility] BILIRUBIN TOTAL S/P/B 0.4 0.2 - 1.2 MG/DL 03/03/2021 2:02 AM [facility] Comment: THIS ASSAY IS NOT RECOMMENDED FOR PATIENTS UNDERGOING TREATMENT WITH ELTROMBOPAG DUE TO THE POTENTIAL FOR FALSELY ELEVATED RESULTS. TOTAL PROTEIN S/P/B 8.7(H) 6.4 - 8.2 G/DL 03/03/2021 2:02 AM [facility] ALBUMIN S/P/B 3.1(L) 3.4 - 5.0 G/DL 03/03/2021 2:02 AM [facility] AST 19 15 - 37 U/L 03/03/2021 2:02 AM [facility] ALT 25 14 - 55 U/L 03/03/2021 2:02 AM [facility] ALKALINE PHOSPHATASE S/P/B 73 50 - 136 U/L 03/03/2021 2:02 AM [facility] ANION GAP 3.8(L) 5 - 15 MMOL/L 03/03/2021 2:02 AM [facility] BUN CREATININE RATIO 30.6(H) 6 - 26 03/03/2021 2:02 AM [facility] A/G RATIO 0.6(L) 1.0 - 2.0 RATIO 03/03/2021 2:02 AM [facility] EGFR NON-AFR. AMER. 76(L) >90 ML/MIN/1.7 3 M2 03/03/2021 2:02 AM [facility] EGFR AFR. AMER. 88(L) >90 ML/MIN/1.7 3 M2 03/03/2021 2:02 AM [facility] Comment: NOTE: eGFR is not calculated for patients <18 years of age. This is an estimated GFR (CKD EPI) and should not be used for calculating drug doses. 03/03/2021 1:20 AM FREIGHT CONDUCTOR Jaswinder Gaytan MD LABORATORY Final Result [facility] [address] [place] [address], [place] [phone] * (ABNORMAL) CBC W/DIFF AUTOMATED (03/03/2021 1:20 AM FREIGHT CONDUCTOR) Pathologist [facility] WBC 10.1 4.5 - 11.0 x10'3/uL 03/03/2021 1:[address] [facility] RBC 4.66 4.20 - 5.40 x10'6/uL 03/03/2021 1:[address] [facility] HGB 13.6 12.0 - 16.0 G/DL 03/03/2021 1:[address] [facility] HCT 43.5 38.0 - 48.0 % 03/03/2021 1:[address] [facility] MCV 93.3 81.0 - 99.0 FL 03/03/2021 1:[address] [facility] MCH 29.2 27.0 - 31.0 PG 03/03/2021 1:40 AM [facility] MCHC 31.3(L) 32.0 - 36.0 G/DL 03/03/2021 1:[address] [facility] RDW 13.7 11.5 - 14.5 % 03/03/2021 1:[address] [facility] PLT 325 130 - 400 x10'3/uL 03/03/2021 1:[address] [facility] MPV 9.9 9.3 - 12.2 FL 03/03/2021 1:40 AM [facility] DIFFERENTIAL TYPE AUTOMATED DIFFERENTIAL 03/03/2021 1:[address] [facility] NEUTROPHILS % 53.0 % 03/03/2021 1:[address] [facility] LYMPHOCYTES % 33.1 % 03/03/2021 1:[address] [facility] MONOCYTES % 9.8 % 03/03/2021 1:[address] [facility] EOSINOPHILS 3.4 % 03/03/2021 1:[address] [facility] BASOPHILS 0.4 % 03/03/2021 1:[address] [facility] IMMATURE GRANS % 0.3 % 03/03/20 1:[address] [facility] ABS. NEUTROPHILS TOTAL 5.38 1.80 - 7.70 x10'3/uL 03/03/2021 1:[address] [facility] ABS. LYMPHOCYTES 3.35 1.00 - 4.80 x10'3/uL 03/03/2021 1:[address] [facility] ABS. MONOCYTES 0.99(H) 0.24 - 0.86 x10'3/uL 03/03/2021 1:[address] [facility] ABS. EOSINOPHILS 0.34 0.04 - 0.36 x10'3/uL 03/03/2021 1:[address] [facility] ABS. BASOPHILS 0.04 0.01 - 0.08 x10'3/uL 03/03/2021 1:[address] [facility] ABS. IMMATURE GRANULOCYTES 0.03 0.00 - 0.49 x10'3/uL 03/03/2021 1:40 AM [facility] 03/03/2021 1:20 AM FREIGHT CONDUCTOR Jaswinder Gaytan MD LABORATORY Final Result [facility] [address] [place] [address], * ECG 12 lead (03/03/2021 12:59 AM FREIGHT CONDUCTOR) 03/03/2021 12:5 9 AM FREIGHT CONDUCTOR Narrative [facility] ([facility] - 03/03/2021 9:10 PM FREIGHT CONDUCTOR ?[facility] ? [address] [place] ? Test Date: ?2021-03-03 Pat Name: ? MOHSEN MARQUES ?Department: ? Room: ? Gender: ? Female ? Manager Package: ?? CB : ?1955 ? Requested By: JASWINDER Zimmerman Number: [id number] ? Reading MD: ?? Ramon Byrd ? Measurements Intervals ?[place] ? Rate: ? 100 ?P: ?21 SD: ? 140 ?QRS: ?14 QRSD: ? 94 ? T: ?52 QT: ? 342 ? QTc: ?441 ? Interpretive Statements SINUS TACHYCARDIA ABNORMAL RHYTHM ECG Compared to ECG 01/06/2021 18:53:02 Sinus rhythm no longer present GHT CONDUCTOR Procedure Note Ramon Byrd MD - 03/03/[address] [facility] Test Date: 2021-03-03 Pat Name: MOHSEN MARQUES Department: Room: Gender: Female Manager Package: : 1955 Requested By: JASWINDER GAYTAN Order Number: [id number] Reading : Ramon Byrd Measurements Intervals [place] Rate: 100 P: 21 SD: 140 QRS: 14 QRSD: 94 T: 52 QT: 342 QTc: 441 Interpretive Statements SINUS TACHYCARDIA ABNORMAL RHYTHM ECG Compared to ECG 01/06/2021 18:53:02 Sinus rhythm no longer present GHT CONDUCTOR us Jaswinder Gaytan MD ECG ORDERABLES Final [...] prior to arrival Given 03/03/2021 1:19 AM FREIGHT CONDUCTOR 324 mg famotidine (PEPCID) tablet 20 mg 20 mg, Oral, Once, 1 dose, On Mon03/03/21 at 0415 Given 03/03/2021 4:24 AM FREIGHT CONDUCTOR 20 mg fentaNYL (SUBLIMAZE) injection 50 mcg 50 mcg, Intravenous, Once, 1 dose, On Mon03/03/21 at 0330, If intravenous (IV) route has been ordered, give over 1-2 minutes. Given 03/03/2021 3:32 AM FREIGHT CONDUCTOR 50 mcg sucralfate (CARAFATE) 1 GM/10ML suspension 1 g 1 g, Oral, Once, 1 dose, On Mon03/03/21 at 0415, Shake Well. Administer on empty stomach. Do not administer antacids within 30 minutes of sucralfate; separate administration of other medications and sucralfate by at least two hours. Given 03/03/2021 4:24 AM FREIGHT CONDUCTOR 1 g documented in this encounter Active and Recently Administered Medications Times are shown in FREIGHT CONDUCTOR. Scheduled Medication Order 03/01/2021 03/02/2021 03/03/2021 aspirin [...] hours. 0424 (Given - Provid er: Agustín Gievns, NURIS) documented in this encounter Care Teams Document Controller Relationship Specialty Start Date End Date Justen Gale MD [facility]. [address] [phone] PCP - General FAMILY PRACTICE 08/20/17 Meena Bansal MD [facility]. [address] [address] [place] Knot Tying Operator CARDIOVASCULAR DISEASE 04/24/16 documented as of this encounter
--- OUTSIDE RECORDS SUMMARY | 2024-04-26 07:01 | XMS_ITS | Encounter Summary ---
Author Organization [facility] Address [address] [place] [address]. [place] [address] [place] [address] Care Team Providers Care Coke Inspector Name Role Phone Meena Bansal MD Unavailable [phone] Justen Gale MD Primary Care Provider [phone] Reason for Referral * Imaging (Emergency) - Closed Specialty Diagnoses / Procedures Referred By Elyssa t Referred To Contact RADIOLOGY Procedures CT ABD+PEL W CON Jaswinder Gaytan MD [address] [place] [address] Phone: tel: fax: Referral ID Status Reason Start Date Expiration Date Visits Re quested Visits Authorized [id number] Closed 09/20/2020 10/21/2021 1 1 Reason for Visit * Reason Comments Urinary Symptoms Abdominal Pain Encounter Details Date Type Department Care Team (Late st Contact Info) Description 09/20/2020 10:39 PM CDT - 09/21/2020 2:46 AM CDT Emergency [facility] Emergency Room [address] [place], [place] [id number] Jaswinder Gaytan MD [address] [place], [place] [address] Urinary Symptoms; Abdominal Pain Discharge Disposition: Home [...] Sexual Orientation Straight 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 Your medication list was reviewed prior [...] such as many narcotic drug combinations and dvsr-xgk-cewomnh cold medicines. Dr. Gaytan's Specific Instructions: After [...] * Severe Abdominal Pain Discharge Instructions, Adult (Peruvian) * Dysuria Discharge Instructions, Adult (Peruvian) * Clear Liquid Diet (Peruvian) documented in this encounter Medications at Time [...] hours as needed (Abdominal cramping/diarrhea). 09/21/20 Yes Jaswnider Gaytan MD diclofenac EC 75 MG tablet [...] ECG [address] [facility] [address] Test Date: 2020-09-20 Pat Name: MOHSEN MARQUES Department: Room: [id number] Gender: Female Senior Manager Asset Protection: ISABELLA : [id number] Requested By: JASWINDER GAYTAN Order Number: [id number] Reading MD: Measurements Intervals [place] Rate: 86 P: 38 OK: 128 QRS: 0 QRSD: 98 T: 31 [...] COLOR (U) LIGHT YELLOW TRANSPARENCY CLEAR Specific [place] (U) 1.028 1.001 - 1.030 U PH [...] ABD+PEL W CON Final Result by User, [email or web address] (09/21 0200) EXAMINATION: CT Abdomen and Pelvis [...] I dictated portions of this note using Promodity speech recognition software. Occasional wrong word or sound-alike substitutions may have occurred due to the inherent limitations of voice recognition software. Please read the chart carefully and recognize, using context, where the substitutions may have occurred. If there are any questions, please contact me via [employer] or other HIPAA compliant communication medium for [...] URINE CLEAN CATCH 09/21/2020 1:16 AM CDT [facility] SPECIAL REQUESTS NO SPECIAL REQUEST 09/21/2020 1:16 AM CDT [facility] CULTURE RESULT POLYMICROBIAL GROWTH CONSISTENT WITH NORMAL GENITAL YESENIA. ?? SUSCEPTIBILITIES NOT ROUTINELY PERFORMED. 09/22/2020 11:03 AM CDT [facility] URINE SPECIMEN OBTAINED BY CLEAN CATCH PROCEDURE / Unknown 09/21/2020 12:47 AM CDT 09/21/2020 1:16 AM CDT Jaswinder Gaytan MD MICROBIOLOGY - GENERAL ORDERABL ES Final Result [facility] [address] [place] [address], * (ABNORMAL) URINALYSIS (09/21/2020 12:45 AM CDT) SPECIMEN TYPE URINE CLEAN CATCH 09/21/2020 12:46 AM CDT [facility] COLOR (U) LIGHT YELLOW 09/21/2020 1:15 AM CDT [facility] TRANSPARENCY CLEAR 09/21/2020 1:15 AM CDT [facility] SPECIFIC GRAVITY (U) 1.028 1.001 - 1.030 09/21/2020 1:15 AM CDT [facility] U PH 5.5 5.0 - 9.0 09/21/2020 1:15 AM CDT [facility] LEUKOCYTES (U) 75(A) NEGATIVE 09/21/2020 1:15 AM CDT [facility] NITRITES NEGATIVE NEGATIVE 09/21/2020 1:15 AM CDT [facility] PROTEIN (U) NEGATIVE <30 MG/DL 09/21/2020 1:15 AM CDT [facility] URINE GLUCOSE NORMAL NORMAL MG/DL 09/21/2020 1:15 AM CDT [facility] KETONES MG/DL (U) NEGATIVE NEGATIVE MG/DL 09/21/2020 1:15 AM CDT [facility] UROBILINOGEN NORMAL NORMAL MG/DL 09/21/2020 1:15 AM CDT [facility] BILIRUBIN (U) NEGATIVE NEGATIVE MG/DL 09/21/2020 1:15 AM CDT [facility] BLOOD (U) 1+(A) NEGATIVE 09/21/2020 1:15 AM CDT [facility] CULTURE & SENSITIVITY INDICATED? SPECIMEN SETUP FOR CULTURE 09/21/2020 1:15 AM CDT [facility] MUCUS FEW /LPF 09/21/2020 1:15 AM CDT [facility] WBC/HPF 16(H) <6 /HPF 09/21/2020 1:15 AM CDT [facility] RBC/HPF 22(H) <6 /HPF 09/21/2020 1:15 AM CDT [facility] SQUAMOUS EPITHELIALS RARE /HPF 09/21/2020 1:15 AM CDT [facility] URINE SPECIMEN OBTAINED BY CLEAN CATCH PROCEDURE / Unknown 09/21/2020 12:45 AM CDT us Jaswinder Gaytan MD URINE ORDERABLES Final Result [facility] [address] [place] [address], [place] [phone] * CULTURE, BACTERIA, BLOOD (09/20/2020 11:52 PM CDT) SPEC DESCRIPTION BLOOD 09/20/2020 11:35 PM CDT [facility] SPECIAL REQUESTS NO SPECIAL REQUEST 09/20/2020 11:35 PM CDT [facility] CULTURE RESULT NO GROWTH 5 DAYS 09/26/2020 12:04 PM CDT [facility] BLOOD SPECIMEN OBTAINED FOR BLOOD CULTURE / Unknown 09/20/2020 11:52 PM CDT 09/21/2020 12:02 AM CDT Jaswinder Gaytan MD MICROBIOLOGY - GENERAL ORDERABL ES Final Result [facility] [address] [place] [address], [place] [phone] * CULTURE, BACTERIA, BLOOD (09/20/2020 11:52 PM CDT) SPEC DESCRIPTION BLOOD 09/20/2020 11:35 PM CDT [facility] SPECIAL REQUESTS NO SPECIAL REQUEST 09/20/2020 11:35 PM CDT [facility] CULTURE RESULT NO GROWTH 5 DAYS 09/26/2020 12:04 PM CDT [facility] BLOOD SPECIMEN OBTAINED FOR BLOOD CULTURE / Unknown 09/20/2020 11:52 PM CDT 09/21/2020 12:03 AM CDT Jaswinder Gaytan MD MICROBIOLOGY - GENERAL ORDERABL ES Final Result [facility] [address] [place] [address], [place] [phone] * TROPONIN, QUANT (09/20/2020 11:52 PM CDT) TROPONIN I <0.015 <0.045 ng/mL. 09/21/2020 12:36 AM CDT [facility] Comment: HIGH DOSES OF BIOTIN MAY INTERFERE WITH THIS TEST RESULT. CORRELATION TO CLINICAL HISTORY AND PRESENTATION RECOMMENDED. 09/20/2020 11:5 2 PM CDT us Jaswinder Gaytan MD LABORATORY Final Result Performing Organization Address City/[facility]/ZIP Co de Phone Number [facility] [address] [place] [address], * MAGNESIUM (09/20/2020 11:52 PM CDT) MAGNESIUM 2.0 1.8 - 2.4 MG/DL 09/21/2020 12:36 AM CDT [facility] 09/20/2020 11:5 2 PM CDT us Jaswinder Gaytan MD LABORATORY Final Result Performing Organization Address [facility] Co de Phone Number [facility] [address] [place] [address], * LIPASE (09/20/2020 11:52 PM CDT) LIPASE 132 73 - 393 UNITS/L 09/21/2020 12:36 AM CDT [facility] 09/20/2020 11:5 2 PM CDT us Jaswinder Gaytan MD LABORATORY Final Result Performing Organization Address City/[facility]/ZIP Co de Phone Number [facility] [address] [place] [address], * LACTIC ACID (09/20/2020 11:52 PM CDT) LACTIC ACID VENOUS 1.5 0.4 - 2.0 MMOL/L 09/21/2020 12:34 AM CDT [facility] 09/20/2020 11:5 2 PM CDT Jaswinder Gaytan MD LABORATORY Final Result [facility] [address] [place] [address], [place] [phone] * (ABNORMAL) COMPREHENSIVE METABOLIC PANEL (09/20/2020 11:52 PM CDT) GLUCOSE 123(H) 70 - 99 MG/DL 09/21/2020 12:36 AM CDT [facility] BUN 19(H) 7 - 18 MG/DL 09/21/2020 12:36 AM CDT [facility] CREATININE S/P/B 1.14(H) 0.55 - 1.02 MG/DL 09/21/2020 12:36 AM CDT [facility] SODIUM S/P/B 135(L) 136 - 145 MMOL/L 09/21/2020 12:36 AM CDT [facility] POTASSIUM S/P/B 4.0 3.5 - 5.1 MMOL/L 09/21/2020 12:36 AM CDT [facility] CHLORIDE S/P/B 103 100 - 108 MMOL/L 09/21/2020 12:36 AM CDT [facility] CO2 29.7 21 - 32 MMOL/L 09/21/2020 12:36 AM CDT [facility] CALCIUM S/P/B 10.1 8.5 - 10.1 MG/DL 09/21/2020 12:36 AM CDT [facility] BILIRUBIN TOTAL S/P/B 0.4 0.2 - 1.2 MG/DL 09/21/2020 12:36 AM [facility] Comment: THIS ASSAY IS NOT RECOMMENDED FOR PATIENTS UNDERGOING TREATMENT WITH ELTROMBOPAG DUE TO THE POTENTIAL FOR FALSELY ELEVATED RESULTS. TOTAL PROTEIN S/P/B 9.3(H) 6.4 - 8.2 G/DL 09/21/2020 12:36 AM [facility] ALBUMIN S/P/B 3.7 3.4 - 5.0 G/DL 09/21/2020 12:36 AM [facility] AST 26 15 - 37 U/L 09/21/2020 12:36 AM [facility] ALT 30 14 - 55 U/L 09/21/2020 12:36 AM [facility] ALKALINE PHOSPHATASE S/P/B 97 50 - 136 U/L 09/21/2020 12:36 AM [facility] ANION GAP 2.3(L) 5 - 15 MMOL/L 09/21/2020 12:36 AM [facility] BUN CREATININE RATIO 16.7 6 - 26 09/21/2020 12:36 AM [facility] A/G RATIO 0.7(L) 1.0 - 2.0 RATIO 09/21/2020 12:36 AM [facility] EGFR NON-AFR. AMER. 51(L) >90 ML/MIN/1.7 3 M2 09/21/2020 12:36 AM [facility] EGFR AFR. AMER. 59(L) >90 ML/MIN/1.7 3 M2 09/21/2020 12:36 AM [facility] Comment: NOTE: eGFR is not calculated for patients <18 years of age. This is an estimated GFR (CKD EPI) and should not be used for calculating drug doses. 09/20/2020 11:5 2 PM CDT Jaswinder Gaytan MD LABORATORY Final Result [facility] [address] [place] [address], * (ABNORMAL) CBC W/DIFF AUTOMATED (09/20/2020 11:52 PM CDT) WBC 13.2(H) 4.5 - 11.0 x10'3/uL 09/21/2020 12:11 AM CDT [facility] RBC 4.88 4.20 - 5.40 x10'6/uL 09/21/2020 12:11 AM CDT [facility] HGB 14.2 12.0 - 16.0 G/DL 09/21/2020 12:11 AM CDT [facility] HCT 45.5 38.0 - 48.0 % 09/21/2020 12:11 AM CDT [facility] MCV 93.2 80.0 - 94.0 FL 09/21/2020 12:11 AM CDT [facility] MCH 29.1 27.0 - 31.0 PG 09/21/2020 12:11 AM CDT [facility] MCHC 31.2(L) 32.0 - 36.0 G/DL 09/21/2020 12:11 AM CDT [facility] RDW 13.8 11.5 - 14.5 % 09/21/2020 12:11 AM CDT [facility] PLT 340 130 - 400 x10'3/uL 09/21/2020 12:11 AM CDT [facility] MPV 10.7 9.3 - 12.2 FL 09/21/2020 12:11 AM CDT [facility] DIFFERENTIAL TYPE AUTOMATED DIFFERENTIAL 09/21/2020 12:11 AM CDT [facility] NEUTROPHILS % 64.3 % 09/21/2020 12:11 AM CDT [facility] LYMPHOCYTES % 25.2 % 09/21/2020 12:11 AM CDT [facility] MONOCYTES % 7.8 % 09/21/2020 12:11 AM CDT [facility] EOSINOPHILS 2.0 % 09/21/2020 12:11 AM CDT [facility] BASOPHILS 0.3 % 09/21/2020 12:11 AM CDT [facility] IMMATURE GRANS % 0.4 % 09/22/19 12:11 AM CDT [facility] ABS. NEUTROPHILS TOTAL 8.46(H) 1.80 - 7.70 x10'3/uL 09/21/2020 12:11 AM CDT [facility] ABS. LYMPHOCYTES 3.32 1.00 - 4.80 x10'3/uL 09/21/2020 12:11 AM CDT [facility] ABS. MONOCYTES 1.03(H) 0.24 - 0.86 x10'3/uL 09/21/2020 12:11 AM CDT [facility] ABS. EOSINOPHILS 0.26 0.04 - 0.36 x10'3/uL 09/21/2020 12:11 AM CDT [facility] ABS. BASOPHILS 0.04 0.01 - 0.08 x10'3/uL 09/21/2020 12:11 AM CDT [facility] ABS. IMMATURE GRANULOCYTES 0.05 0.00 - 0.49 x10'3/uL 09/21/2020 12:11 AM CDT [facility] 09/20/2020 11:5 2 PM CDT Jaswinder Gaytan MD LABORATORY Final Result Performing Organization Address [facility]/State/ZIP Co de Phone Number [facility] [address] [place] [address], * ECG 12 lead (09/20/2020 11:47 PM CDT) 09/20/2020 11:4 7 PM CDT Narrative [facility] YINKALuz Elena YOU (SHELBY) RAD - 09/21/2020 10:17 PM CDT [facility] ? [address] [facility] [place] ? Test Date: ?2020-09-20 Pat Name: ? MOHSEN MARQUES ?Department: ? Room: ? [id number] Gender: ? Female ? Senior Manager Asset Protection: ?? GDD : ?1955 ? Requested By: JASWINDER Zimmerman Number: [id number] ? Reading : ?? Vikash Rollins ? Measurements Intervals ?[place] ? Rate: ? 86 ? P: ?38 OK: ? 128 ?QRS: ?0 QRSD: ? 98 ? T: ?31 QT: ? 355 ? QTc: ?426 ? Interpretive Statements SINUS RHYTHM Non-specific ST-T wave abnormalities Procedure Note Vikash Rollins MD,PHD - 09/21/[address] 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 2353 (Given - Provider: David Coe RN) ketorolac (TORADOL) injection 15 mg (COMPLETED) [...] RT) documented in this encounter Care Teams Coke Inspector Relationship Specialty Start Date End Date Justen Gale MD [facility]. [place] [address] [place] [address] PCP - General FAMILY PRACTICE 08/20/17 Meena Bansal MD [facility]. [facility] [address] [place] [address] [employer] Spotter CARDIOVASCULAR DISEASE 04/24/16 documented as of this encounter
--- OUTSIDE RECORDS SUMMARY | 2024-04-26 07:01 | XMS_ITS | Encounter Summary ---
Author Organization [facility] - [facility] Address [address] [place] [address]. 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 Yes 04/19/2021 8:07 PM PROJECT OFFICER documented as of this encounter Functional Status [...] Rule Out 04/19/2021 04/19/2021 04/19/2021 10:15 PM PROJECT OFFICER COVID-19 Confirmed 04/19/2021 04/19/2021 12:32 AM PROJECT OFFICER documented as of this encounter Care Teams Claims Sorter Relationship Specialty Start Date End Date Justen Gale MD [address] [place] [address] PCP - General FAMILY PRACTICE 08/20/17 Meena Bansal MD [address] [place] [address] [place] [address] [place] Lasting Machine Operator CARDIOVASCULAR DISEASE 04/24/16 documented as of this encounter
--- OUTSIDE RECORDS SUMMARY | 2024-04-26 07:01 | XMS_ITS | Encounter Summary ---
Author Organization [facility] - [facility] Address [address] [place] [address]. 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 Yes 04/19/2021 8:07 PM DOCUMENTATION BILLING CLERK documented as of this encounter Functional [...] Rule Out 04/19/2021 04/19/2021 04/19/2021 10:15 PM DOCUMENTATION BILLING CLERK COVID-19 Confirmed 04/19/2021 04/19/2021 12:32 AM DOCUMENTATION BILLING CLERK documented as of this encounter Care Teams Exchange Consultant Relationship Specialty Start Date End Date Justen Gale MD [address] [place] [address] PCP - General FAMILY PRACTICE 08/20/17 Meena Bansal MD [address] [place] [address] [place] [address] [place] [employer] Production Manager CARDIOVASCULAR DISEASE 04/24/16 documented as of this encounter
--- OUTSIDE RECORDS SUMMARY | 2024-04-26 07:01 | XMS_ITS | Encounter Summary ---
Author Organization [facility] Address [address] [place] [address]. [place] [address] [place] [address] Care Team Providers Care General Scrap Worker Name Role Phone Meena Bansal MD Unavailable [phone] Gerardo Gale MD Primary Care Provider [phone] Reason for Visit * Reason Comments Abdominal Pain Vomiting Fatigue Encounter Details Date Type Department Care Team (Late st Contact Info) Description 07/19/2021 1:52 PM CDT - 07/19/2021 5:[address] [facility] Emergency Room [place], [place] [id number] Bonnie Martinez, LODGING FACILITIES ATTENDANT [address], [place] [address] Abdominal Pain; Vomiting; Fatigue Discharge Disposition: Home [...] Sexual Orientation Straight 03/18/2018 3: 01 AM HISTOLOGY ASSISTANT COVID-19 Exposure Response Date Recorded In the [...] Everywhere. * Viral Gastroenteritis Discharge Instructions, Adult (Afghan) * Viral Syndrome Discharge Instructions (Afghan) * High Blood Pressure and (Afghan) documented in this encounter Medications at Time [...] 07/19/2021 4:53 PM CDTAssociated Order(s): EKG Reading [facility] EMERGENCY DEPARTMENT NOTE Chief Complaint Chief Complaint [...] encounter of 07/19/21 ECG 12 lead Narrative [place] Test Date: 2021-07-19 Pat Name: MOHSEN MARQUES Department: Room: Gender: Female Ground Intelligence Officer: : 1955 Requested By: GERARDO YOON Order Number: [id number] Reading MD: Measurements Intervals Randall Rate: 72 P: 30 MS: 139 QRS: 6 QRSD: 87 T: 33 [...] COLOR (U) LIGHT YELLOW TRANSPARENCY CLEAR Specific [place] (U) 1.018 1.001 - 1.030 U PH [...] XR CHEST PA+LAT Final Result by User, [id number] (07/19 1404) Examination: Chest 2 View History: Shortness of [...] 5:33 PM Follow-up: Gerardo Gale MD [address] [address] Schedule an appointment as soon as possible for a visit Bonnie Martinez APRN 07/19/2021 Bonnie Martinez APRN, dictated portions of this note using [employer] speech recognition software. Occasional wrong word or sound-alike substitutions may have occurred due to the inherent limitations of voice recognition software. Please read the chart carefully and recognize, using context, where the parrish bstitutions may have occurred. Bonnie Martinez APRN 07/19/21 1925 Cosigned by Marlyn Stuart MD at 07/19/2021 9:48 PM CDT * LINDA Cui - 07/19/2021 12:54 PM CDT [place], [place] EMERGENCY DEPARTMENT ENCOUNTER Medical Screening Examination [...] SPECIMEN TYPE NASAL 07/19/2021 2:29 PM CDT [facility] INFLUENZA A NEGATIVE NEGATIVE 07/19/2021 3:12 PM CDT [facility] INFLUENZA B NEGATIVE NEGATIVE 07/19/2021 3:12 PM CDT [facility] Comment: Interpretation: Negative for Influenza [...] MICROBIOLOGY - GENERAL ANGEL SPEARS Final Result [facility] [address] [place] [address], [place] [phone] * (ABNORMAL) URINALYSIS (07/19/2021 2:15 PM CDT) SPECIMEN TYPE URINE CLEAN CATCH 07/19/2021 2:15 PM CDT [facility] COLOR (U) LIGHT YELLOW 07/19/2021 2:36 PM CDT [facility] TRANSPARENCY CLEAR 07/19/2021 2:36 PM CDT [facility] SPECIFIC GRAVITY (U) 1.018 1.001 - 1.030 07/19/2021 2:36 PM CDT [facility] U PH 6.5 5.0 - 9.0 07/19/2021 2:36 PM CDT [facility] LEUKOCYTES (U) NEGATIVE NEGATIVE 07/19/2021 2:36 PM CDT [facility] NITRITES NEGATIVE NEGATIVE 07/19/2021 2:36 PM CDT [facility] PROTEIN (U) NEGATIVE <30 MG/DL 07/19/2021 2:36 PM CDT [facility] URINE GLUCOSE NORMAL NORMAL MG/DL 07/19/2021 2:36 PM CDT [facility] KETONES MG/DL (U) NEGATIVE NEGATIVE MG/DL 07/19/2021 2:36 PM CDT [facility] UROBILINOGEN NORMAL NORMAL MG/DL 07/19/2021 2:36 PM CDT [facility] BILIRUBIN (U) NEGATIVE NEGATIVE MG/DL 07/19/2021 2:36 PM CDT [facility] BLOOD (U) 1+(A) NEGATIVE 07/19/2021 2:36 PM CDT [facility] CULTURE & SENSITIVITY INDICATED? CULTURE IS NOT INDICATED 07/19/2021 2:36 PM CDT [facility] MUCUS RARE /LPF 07/19/2021 2:36 PM CDT [facility] WBC/HPF <1 <6 /HPF 07/19/2021 2:36 PM CDT [facility] RBC/HPF 16(H) <6 /HPF 07/19/2021 2:36 PM CDT [facility] BACTERIA (U) RARE(A) NONE /HPF 07/19/2021 2:36 PM CDT [facility] URINE SPECIMEN OBTAINED BY CLEAN CATCH PROCEDURE / Unknown 07/19/2021 2:15 PM CDT us Greardo MCKEON URINE ORDERABLES Final Resu lt Performing Organization Address City/[facility]/ZIP Co de Phone Number [facility] [address] [place] [address], [place] [phone] * (ABNORMAL) LIPASE (07/19/2021 2:14 PM CDT) Pathologist [facility] LIPASE 66(L) 73 - 393 UNITS/L 07/19/2021 3:10 PM CDT [facility] 07/19/2021 2:14 PM CDT us Gerardo MCKEON LABORATORY Final Resul t [facility] [address] [place] [address], [place] [phone] * TROPONIN, QUANT (07/19/2021 2:14 PM CDT) Pathologist [facility] TROPONIN I HIGH SENSITIVITY 7 <54 ng/L 07/19/2021 3:10 PM CDT [facility] Comment: HIGH DOSES OF BIOTIN, TROPONIN-SPECIFIC AUTOANTIBODIES, AND ANTIBODY THERAPY CONTAINING HAMA MAY INTERFERE WITH THIS TEST RESULT. CORRELATION TO CLINICAL HISTORY AND PRESENTATION RECOMMENDED. 07/19/2021 2:14 PM CDT us Gerardo MCKEON LABORATORY Final Resul t [facility] [address] [place] [address], [place] [phone] * (ABNORMAL) COMPREHENSIVE METABOLIC PANEL (07/19/2021 2:14 PM CDT) GLUCOSE 153(H) 70 - 99 MG/DL 07/19/2021 3:10 PM CDT [facility] BUN 14 7 - 18 MG/DL 07/19/2021 3:10 PM CDT [facility] CREATININE S/P/B 0.77 0.55 - 1.02 MG/DL 07/19/2021 3:10 PM CDT [facility] SODIUM S/P/B 138 136 - 145 MMOL/L 07/19/2021 3:10 PM CDT [facility] POTASSIUM S/P/B 3.9 3.5 - 5.1 MMOL/L 07/19/2021 3:10 PM CDT [facility] CHLORIDE S/P/B 106 100 - 108 MMOL/L 07/19/2021 3:10 PM CDT [facility] CO2 29.0 21 - 32 MMOL/L 07/19/2021 3:10 PM CDT [facility] CALCIUM S/P/B 9.1 8.5 - 10.1 MG/DL 07/19/2021 3:10 PM CDT [facility] BILIRUBIN TOTAL S/P/B 0.5 0.2 - 1.2 MG/DL 07/19/2021 3:10 PM T [facility] Comment: THIS ASSAY IS NOT RECOMMENDED FOR PATIENTS UNDERGOING TREATMENT WITH ELTROMBOPAG DUE TO THE POTENTIAL FOR FALSELY ELEVATED RESULTS. TOTAL PROTEIN S/P/B 8.4(H) 6.4 - 8.2 G/DL 07/19/2021 3:10 PM T [facility] ALBUMIN S/P/B 3.2(L) 3.4 - 5.0 G/DL 07/19/2021 3:10 PM T [facility] AST 20 15 - 37 U/L 07/19/2021 3:10 PM T [facility] ALT 27 14 - 55 U/L 07/19/2021 3:10 PM [facility] ALKALINE PHOSPHATASE S/P/B 80 50 - 136 U/L 07/19/2021 3:10 PM [facility] ANION GAP 3.0(L) 5 - 15 MMOL/L 07/19/2021 3:10 PM [facility] BUN CREATININE RATIO 18.2 6 - 26 07/19/2021 3:10 PM [facility] A/G RATIO 0.6(L) 1.0 - 2.0 RATIO 07/19/2021 3:10 PM [facility] EGFR NON-AFR. AMER. 81(L) >90 ML/MIN/1.7 3 M2 07/19/2021 3:10 PM T [facility] EGFR AFR. AMER. >90 >90 ML/MIN/1.7 3 M2 07/19/2021 3:10 PM [facility] Comment: NOTE: eGFR is not calculated for patients <18 years of age. This is an estimated GFR (CKD EPI) and should not be used for calculating drug doses. 07/19/2021 2:14 PM CDT Gerardo MCKEON LABORATORY Final Resul t [facility] [address] [place] [address], [place] [phone] * (ABNORMAL) CBC W/DIFF AUTOMATED (07/19/2021 2:14 PM CDT) WBC 10.3 4.5 - 11.0 x10'3/uL 07/19/2021 2:42 PM CDT [facility] RBC 4.58 4.20 - 5.40 x10'6/uL 07/19/2021 2:42 PM CDT [facility] HGB 13.2 12.0 - 16.0 G/DL 07/19/2021 2:42 PM CDT [facility] HCT 42.7 38.0 - 48.0 % 07/19/2021 2:42 PM CDT [facility] MCV 93.2 81.0 - 99.0 FL 07/19/2021 2:42 PM CDT [facility] MCH 28.8 27.0 - 31.0 PG 07/19/2021 2:42 PM CDT [facility] MCHC 30.9(L) 32.0 - 36.0 G/DL 07/19/2021 2:42 PM CDT [facility] RDW 14.4 11.5 - 14.5 % 07/19/2021 2:42 PM CDT [facility] PLT 292 130 - 400 x10'3/uL 07/19/2021 2:42 PM CDT [facility] MPV 9.7 9.3 - 12.2 FL 07/19/2021 2:42 PM CDT [facility] DIFFERENTIAL TYPE AUTOMATED DIFFERENTIAL 07/19/2021 2:42 PM CDT [facility] NEUTROPHILS % 67.8 % 07/19/2021 2:42 PM CDT [facility] LYMPHOCYTES % 22.8 % 07/19/2021 2:42 PM CDT [facility] MONOCYTES % 6.1 % 07/19/2021 2:42 PM CDT [facility] EOSINOPHILS 2.3 % 07/19/2021 2:42 PM CDT [facility] BASOPHILS 0.3 % 07/19/2021 2:42 PM CDT [facility] IMMATURE GRANS % 0.7 % 07/20/19 2:42 PM CDT [facility] ABS. NEUTROPHILS TOTAL 6.97 1.80 - 7.70 x10'3/uL 07/19/2021 2:42 PM CDT [facility] ABS. LYMPHOCYTES 2.35 1.00 - 4.80 x10'3/uL 07/19/2021 2:42 PM CDT [facility] ABS. MONOCYTES 0.63 0.24 - 0.86 x10'3/uL 07/19/2021 2:42 PM CDT [facility] ABS. EOSINOPHILS 0.24 0.04 - 0.36 x10'3/uL 07/19/2021 2:42 PM CDT [facility] ABS. BASOPHILS 0.03 0.01 - 0.08 x10'3/uL 07/19/2021 2:42 PM CDT [facility] ABS. IMMATURE GRANULOCYTES 0.07 0.00 - 0.49 x10'3/uL 07/19/2021 2:42 PM CDT [facility] 07/19/2021 2:14 PM CDT Gerardo MCKEON LABORATORY Final Resul t [facility] [address] [facility] [place] [address], * ECG 12 lead (07/19/2021 1:55 PM CDT) 07/19/2021 1:55 PM CDT Narrative [facility] - 07/19/2021 8:12 PM CDT ?[facility] ? [address] [place] ? Test Date: ?2021-07-19 Pat Name: ? MOHSEN MARQUES ?Department: ? Room: ? EXAM22 Gender: ? Female ? Ground Intelligence Officer: ?? RH : ?1955 ? Requested By: GERARDO YOON Order Number: [id number] ? Reading : ?? Karlos Amor ? Measurements Intervals ?Randall ? Rate: ? 72 ? P: ?30 MS: ? 139 ?QRS: ?6 QRSD: ? 87 ? T: ?33 QT: ? 375 ? QTc: ?413 ? Interpretive Statements SINUS RHYTHM Compared to ECG 05/22/2021 18:44:34 No significant changes Preliminary EKG interpretation by ED Physician No ischemic changes Gerardo Yoon PA-C CRITICAL ALERT ISSUED ON 07-19-2021 13:58:55 Procedure Note Karlos Amor MD - 07/19/[address] [place] [place] Test Date: 2021-07-19 Pat Name: MOHSEN MARQUES Department: Room: [facility] Gender: Female Ground Intelligence Officer: : 1955 Requested By: GERARDO YOON Order Number: [id number] Reading MD: Karlos Amor Measurements Intervals Randall Rate: 72 P: 30 MS: 139 QRS: 6 QRSD: 87 T: 33 QT: 375 QTc: 413 Interpretive Statements SINUS RHYTHM Compared to ECG 05/22/2021 18:44:34 No significant changes Preliminary EKG interpretation by ED Physician No ischemic changes Gerardo Yoon PA-C CRITICAL ALERT ISSUED ON 07-19-2021 13:58:55 us Gerardo MCKEON ECG ORDERABLES Final Resul t [facility] RAD * EKG Reading (07/19/2021 1:52 PM CDT) Narrative Marlyn Stuart MD - 07/19/2021 1:52 PM CDT Bonnie Martinez APRN ? 07/19/2021 ??7:25 PM EKG Reading Date/Time: 07/19/2021 1:52 PM Performed by: Bonnie Martinez APRN Authorized by: Bonnie Martinez APRN Rhythm: sinus rhythm Rate: normal BPM: 72 Comments: NO STEMI NO ECTOPY NO TACHYCARDIA us Bonnie Martinez APRN [place] CARDIOVASCULAR SYSTEM SERV ICES Final Result * [...] RN) documented in this encounter Care Teams General Scrap Worker Relationship Specialty Start Date End Date Gerardo Gale MD [address] [place] [id number] [place] [address] PCP - General FAMILY PRACTICE 08/20/17 Meena Bansal MD [address] [facility] [address] [place] [address] José Luis Exhibition Designer CARDIOVASCULAR DISEASE 04/24/16 documented as of this encounter
--- OUTSIDE RECORDS SUMMARY | 2024-04-26 07:01 | XMS_ITS | Encounter Summary ---
Author Organization [facility] Address [address] [place] [address]. [place] [address] [place] [address] Care Team Providers Care Technician Helper Instrument Name Role Phone Meena Bansal MD Unavailable [phone] Justen Gale MD Primary Care Provider [phone] Reason for Referral * Imaging (Routine) - Closed Specialty Diagnoses / Procedures Referred By Contac t Referred To Contact RADIOLOGY Diagnoses Pain in both lower extremities Procedures USV DIAZ DUPLEX LOW EXT YANNICK Leah Mackay NP Phone: tel: fax: Referral ID Status Reason Start Date Expiration Date Visits Re quested Visits Authorized [id number] Closed 05/31/2021 07/01/2022 1 1 DIRECTOR Reason for Visit * Imaging (Routine) - Closed Specialty Diagnoses / Procedures Referred By Contac makayla Referred To Contact RADIOLOGY Diagnoses Pain in both lower extremities Procedures USV DIAZ DUPLEX LOW EXT YANNICK Leah Mackay NP Phone: tel: fax: Referral ID Status Reason Start Date Expiration Date Visits Re quested Visits Authorized [id number] Closed 05/31/2021 07/01/2022 1 1 Encounter Details Date Type Department Care Team (Late st Contact Info) Description 06/01/2021 6:35 AM ART DIRECTOR - 06/01/2021 11:59 PM ART DIRECTOR Hospital Encounter [facility] [place] [address] [place] [address] Leah Mackay NP [address] [address] Discharge Disposition: Home or Self Care (Routine [...] Sexual Orientation Straight 03/18/2018 3: 01 AM ART DIRECTOR COVID-19 Exposure Response Date Recorded In the last 10 days, have yo u been in contact with someone who was confirmed or suspected to have Coronavirus/COVID-19? No / Unsure 05/31/2021 6:26 PM ART DIRECTOR documented as of this encounter Functional Status [...] LOW EXT YANNICK Routine 06/01/2021 7:37 AM ART DIRECTOR Pain in both lower extremities documented in this encounter Results * USV DIAZ DUPLEX LOW EXT YANNICK (06/01/2021 7:37 AM ART DIRECTOR) Anatomical Region Laterality Modality Extremity Vascular Ultraso und 06/01/2021 7:21 AM ART DIRECTOR Narrative 2021 5:29 PM ART DIRECTOR ?VENOUS DUPLEX IMAGING ?BILATERAL LOWER EXTREMITY ? VASCULAR LAB Pat.Name: ??MOHSEN SALAZAR ?Pat.ID: ?[id number] ? St.Date: ?? 06/01/2021 ?Refer.: ??Justen Gale [...] EXTREMITY VASCULAR LAB Pat.Name: MOHSEN SALAZAR Pat.ID: [id number] .Date: 06/01/2021 Refer.MD: Justen Gale Exam Time: [...] PM Jeremías Danielson M.D. us Leah Mackay SYSTEMS AUDITOR VASC Final Result documented in this encounter Visit Diagnoses Diagnosis Pain in both lower extremities documented in this encounter Care Teams Technician Helper Instrument Relationship Specialty Start Date End Date Justen Gale [facility] [address] [place], [place] [id number] PCP - General FAMILY PRACTICE 08/20/17 Meena Bansal MD [address] [place] [address] [place], [place] [address] [employer] Crossing Guard Supervisor CARDIOVASCULAR DISEASE 04/24/16 documented as of this encounter
--- OUTSIDE RECORDS SUMMARY | 2024-04-26 07:01 | XMS_ITS | Encounter Summary ---
Author Organization [facility] Address [address] [place] [address]. [place] [address] [place] [address] Care Team Providers Care Compressor Station Engineer Chief Name Role Phone Meena Bansal MD Unavailable [phone] Gerardo Hoffman MD Primary Care Provider [phone] Reason for Referral * Consultation (Routine) - Closed Specialty Diagnoses / Procedures Referred By Contac t Referred To Contact UROLOGY Diagnoses Urinary incontinence, unspecified type Chun Dolan PA-C Phone: tel: fax: Referral ID Status Reason Start Date Expiration Date V isits Requested Visits Authorized [id number] Closed Specialty Services 09/07/2020 10/08/2021 1 1 * Imaging (Emergency) - Closed Specialty Diagnoses / Procedures Referred By Contac t Referred To Contact RADIOLOGY Procedures CT ABD+PEL W Thomas Cordova MD [address] [place] [address] Phone: tel: fax: Referral ID Status Reason Start Date Expiration Date Visits Re quested Visits Authorized [id number] Closed 09/05/2020 10/06/2021 1 1 * Imaging (Emergency) - Closed Specialty Diagnoses / Procedures Referred By Contac t Referred To Contact RADIOLOGY Procedures CT ABD+PEL WO CON Leah Mackay NP Phone: tel: fax: Referral ID Status Reason Start Date Expiration Date Visits Re quested Visits Authorized [id number] Closed 09/05/2020 10/06/2021 1 1 Reason for Visit * Reason Comments Abdominal Pain Nausea Urinary Symptoms * Auth/Cert Specialty Diagnoses / Procedures Referred By Elyssa t Referred To Contact Diagnoses Abdominal pain Abdominal pain Referral ID Status Reason Start Date Expiration Date Visits Re quested Visits Authorized [id number] 1 1 Encounter Details Date Type Department Care Team (Late st Contact Info) Description 09/05/2020 8:21 PM CDT - 09/07/2020 12:30 PM CDT [facility] 3rd [place] [address] Thomas Perry MD [address] [facility] [address] [place] [address] Antonella Mcconnell MD [address] [facility] [place] [address] [phone] (Work) Chun Dolan PA-[place] [address] [place] [address] Abdominal Pain; Nausea; Urinary Symptoms Discharge Disposition: [...] Sexual Orientation Straight 03/18/2018 3: 01 AM ACTIVITY THERAPIST documented as of this encounter Last Filed [...] infection. Pain control with IV morphine and [place] during admission. Home oxybutynin increased and discharged [...] patient had an EGD and colonoscopy at [facility] in December 2019 Home oxybutynin dose increased, [...] 10:44 PM ?? CT ABD+PEL WO CON [[id number]] Collected: 09/05/202036 Updated: 09/05/202055 Narrative: ?? EXAMINATION: [...] Your Medications These medications were sent to [id number] - [place], [place] - [address] AT [address], [place] [address] ?? mirabegron ER 25 MG 24 hr [...] (no O2)) Behavior Oriented;Cooperative Communication Talks;Understands speaking;Understands Swedish Anticipated DC Plan Living Arrangements Children Support [...] [place] PCP: Gerardo Hoffman Insurance Plan: [facility], Medicaid Financial: Denies any concerns. Discharge [...] No results for input(s): PH, PCO2, PO2, S2EIRQRURIRJ, BICARBWB, BASEDEFICIT, BASEEXCESS in the [id number] hours. X-Ray No results found. Assessment/Plan: Intractable [...] everywherepatient had an EGD and colonoscopy at [facility] in December 2019 Home oxybutynin dose increased, [...] Gatherings with Friends and Family: ??? Attends Orthodox Services: ??? Active Member of Clubs or [...] No results for input(s): PH, PCO2, PO2, [id number], BICARBWB, BASEDEFICIT, BASEEXCESS in the [id number] hours. Imagining & Other Studies CT ABD+PEL [...] everywherepatient had an EGD and colonoscopy at [facility] in December 2019 History of breast cancer: [...] COLOR (U) LIGHT YELLOW TRANSPARENCY CLEAR Specific [place] (U) 1.024 1.001 - 1.030 U PH [...] ABD+PEL W CON Final Result by User, [id number] (09/05 0947) Examination: CT abdomen and pelvis with IV [...] ABD+PEL WO CON Final Result by User, [id number] (09/06 2055) EXAMINATION: CT ABDOMEN AND PELVIS [...] - 99 MG/DL 09/07/2020 9:23 AM CDT [facility] BUN 11 7 - 18 MG/DL 09/07/2020 9:23 AM CDT [facility] CREATININE S/P/B 0.76 0.55 - 1.02 MG/DL 09/07/2020 9:23 AM CDT [facility] SODIUM S/P/B 136 136 - 145 MMOL/L 09/07/2020 9:23 AM CDT [facility] POTASSIUM S/P/B 4.2 3.5 - 5.1 MMOL/L 09/07/2020 9:23 AM CDT [facility] CHLORIDE S/P/B 104 100 - 108 MMOL/L 09/07/2020 9:23 AM CDT [facility] CO2 30.9 21 - 32 MMOL/L 09/07/2020 9:23 AM CDT [facility] CALCIUM S/P/B 9.1 8.5 - 10.1 MG/DL 09/07/2020 9:23 AM CDT [facility] ANION GAP 1.1(L) 5 - 15 MMOL/L 09/07/2020 9:23 AM CDT [facility] BUN CREATININE RATIO 14.5 6 - 26 09/07/2020 9:23 AM CDT [facility] EGFR NON-AFR. AMER. 83(L) >90 ML/MIN/1.7 3 M2 09/07/2020 9:23 AM CDT [facility] EGFR AFR. AMER. >90 >90 ML/MIN/1.7 3 M2 09/07/2020 9:23 AM CDT [facility] Comment: NOTE: eGFR is not calculated for patients <18 years of age. This is an estimated GFR (CKD EPI) and should not be used for calculating drug doses. 09/07/2020 8:35 AM CDT Chun Dolan PA-C LABORATORY Final Result [facility] [address] [place] [address], * (ABNORMAL) CBC W/DIFF AUTOMATED (09/07/2020 8:35 AM CDT) WBC 8.3 4.5 - 11.0 x10'3/uL 09/07/2020 8:53 AM CDT [facility] RBC 4.11(L) 4.20 - 5.40 x10'6/uL 09/07/2020 8:53 AM CDT [facility] HGB 11.9(L) 12.0 - 16.0 G/DL 09/07/2020 8:53 AM CDT [facility] HCT 38.7 38.0 - 48.0 % 09/07/2020 8:53 AM CDT [facility] MCV 94.2(H) 80.0 - 94.0 FL 09/07/2020 8:53 AM CDT [facility] MCH 29.0 27.0 - 31.0 PG 09/07/2020 8:53 AM CDT [facility] MCHC 30.7(L) 32.0 - 36.0 G/DL 09/07/2020 8:53 AM CDT [facility] RDW 13.8 11.5 - 14.5 % 09/07/2020 8:53 AM CDT [facility] PLT 263 130 - 400 x10'3/uL 09/07/2020 8:53 AM CDT [facility] MPV 9.8 9.3 - 12.2 FL 09/07/2020 8:53 AM CDT [facility] DIFFERENTIAL TYPE AUTOMATED DIFFERENTIAL 09/07/2020 8:53 AM CDT [facility] NEUTROPHILS % 65.4 % 09/07/2020 8:53 AM CDT [facility] LYMPHOCYTES % 23.0 % 09/07/2020 8:53 AM CDT [facility] MONOCYTES % 8.0 % 09/07/2020 8:53 AM CDT [facility] EOSINOPHILS 2.7 % 09/07/2020 8:53 AM CDT [facility] BASOPHILS 0.4 % 09/07/2020 8:53 AM CDT [facility] IMMATURE GRANS % 0.5 % 09/08/19 8:53 AM CDT [facility] ABS. NEUTROPHILS TOTAL 5.44 1.80 - 7.70 x10'3/uL 09/07/2020 8:53 AM CDT [facility] ABS. LYMPHOCYTES 1.91 1.00 - 4.80 x10'3/uL 09/07/2020 8:53 AM CDT [facility] ABS. MONOCYTES 0.66 0.24 - 0.86 x10'3/uL 09/07/2020 8:53 AM CDT [facility] ABS. EOSINOPHILS 0.22 0.04 - 0.36 x10'3/uL 09/07/2020 8:53 AM CDT [facility] ABS. BASOPHILS 0.03 0.01 - 0.08 x10'3/uL 09/07/2020 8:53 AM CDT [facility] ABS. IMMATURE GRANULOCYTES 0.04 0.00 - 0.49 x10'3/uL 09/07/2020 8:53 AM CDT [facility] 09/07/2020 8:35 AM CDT Chun Redzic PA-C LABORATORY Final Result Performing Organization Address City/[facility]/ZIP Co de Phone Number [facility] [address] [place] [address], [place] [phone] * POCT glucose (09/07/2020 6:35 AM CDT) GLUCOSE POC 93 70 - 99 mg/dL 09/07/2020 6:39 AM CDT [facility] 09/07/2020 6:35 AM CDT Chun Redzic PA-C POCT ORDERABLES - DEVICE Final Result Performing Organization Address City/[facility] Co de Phone Number [facility] [address] [place] [address], [place] [phone] * POCT glucose (09/06/2020 9:15 PM CDT) GLUCOSE POC 86 70 - 99 mg/dL 09/06/2020 9:59 PM CDT [facility] 09/06/2020 9:15 PM CDT Chun Redzic PA-C POCT ORDERABLES - DEVICE Final Result Performing Organization Address City/[facility]/ZIP Co de Phone Number [facility] [address] [place] [address], [place] [phone] * (ABNORMAL) POCT glucose (09/06/2020 4:38 PM CDT) GLUCOSE POC 113(H) 70 - 99 mg/dL 09/06/2020 6:24 PM CDT [facility] 09/06/2020 4:38 PM CDT Chun Redzic PA-C POCT ORDERABLES - DEVICE Final Result Performing Organization Address [facility]/ZIP Co de Phone Number [facility] [address] [place] [address], [place] [phone] * POCT glucose (09/06/2020 12:12 PM CDT) GLUCOSE POC 98 70 - 99 mg/dL 09/06/2020 12:14 PM CDT [facility] 09/06/2020 12:1 2 PM CDT us Chun Redzic PA-C POCT ORDERABLES - DEVICE Final Result Performing Organization Address City/[facility]/ZIP Co de Phone Number [facility] [address] [place] [address], [place] [phone] * (ABNORMAL) POCT glucose (09/06/2020 6:10 AM CDT) GLUCOSE POC 134(H) 70 - 99 mg/dL 09/06/2020 6:18 AM CDT [facility] 09/06/2020 6:10 AM CDT Antonella Mcconnell MD POCT ORDERABLES - DEVICE Fi nal Result [facility] [address] [place] [address], * (ABNORMAL) BASIC METABOLIC PANEL (09/06/2020 4:27 AM CDT) GLUCOSE 122(H) 70 - 99 MG/DL 09/06/2020 5:11 AM CDT [facility] BUN 16 7 - 18 MG/DL 09/06/2020 5:11 AM CDT [facility] CREATININE S/P/B 0.66 0.55 - 1.02 MG/DL 09/06/2020 5:11 AM CDT [facility] SODIUM S/P/B 139 136 - 145 MMOL/L 09/06/2020 5:11 AM CDT [facility] POTASSIUM S/P/B 3.7 3.5 - 5.1 MMOL/L 09/06/2020 5:11 AM CDT [facility] CHLORIDE S/P/B 109(H) 100 - 108 MMOL/L 09/06/2020 5:11 AM CDT [facility] CO2 26.2 21 - 32 MMOL/L 09/06/2020 5:11 AM CDT [facility] CALCIUM S/P/B 8.5 8.5 - 10.1 MG/DL 09/06/2020 5:11 AM CDT [facility] ANION GAP 3.8(L) 5 - 15 MMOL/L 09/06/2020 5:11 AM CDT [facility] BUN CREATININE RATIO 24.2 6 - 26 09/06/2020 5:11 AM CDT [facility] EGFR NON-AFR. AMER. >90 >90 ML/MIN/1.7 3 M2 09/06/2020 5:11 AM CDT [facility] EGFR AFR. AMER. >90 >90 ML/MIN/1.7 3 M2 09/06/2020 5:11 AM CDT [facility] Comment: NOTE: eGFR is not calculated for patients <18 years of age. This is an estimated GFR (CKD EPI) and should not be used for calculating drug doses. 09/06/2020 4:27 AM CDT Antonella Mcconnell MD LABORATORY Final Resul t Performing Organization Address City/[facility] Co de Phone Number [facility] [address] [place] [address], [place] [phone] * THYROID STIM HORMONE, TSH (09/06/2020 4:27 AM CDT) TSH 2.920 0.358 - 3.74 uIU/ML 09/06/2020 5:11 AM CDT [facility] Comment: HIGH DOSES OF BIOTIN MAY INTERFERE WITH THIS TEST RESULT. CORRELATION TO CLINICAL HISTORY AND PRESENTATION RECOMMENDED. 09/06/2020 4:27 AM CDT Antonella Mcconnell MD LABORATORY Final Resul t Performing Organization Address City/[facility]/ZIP Co de Phone Number [facility] [address] [place] [address], [place] [phone] * (ABNORMAL) HEMOGLOBIN, GLYCATED (09/06/2020 4:27 AM CDT) HGB A1C 7.8(H) <5.7 % 09/06/2020 5:28 AM CDT [facility] Comment: ADA GUIDELINES 2010 5.7 TO 6.4% INCREASED RISK OF DIABETES > OR = 6.5% CONSISTENT WITH DIABETES ESTIMATED AVG GLUCOSE 177 mg/dL 09/06/2020 5:28 AM CDT [facility] 09/06/2020 4:27 AM CDT us Antonella Mcconnell MD LABORATORY Final Resul t Performing Organization Address [facility] de Phone Number [facility] [address] [place] [address], [place] [phone] * (ABNORMAL) MAGNESIUM (09/06/2020 4:27 AM CDT) MAGNESIUM 1.6(L) 1.8 - 2.4 MG/DL 09/06/2020 5:11 AM CDT [facility] 09/06/2020 4:27 AM CDT us Antonella Mcconnell MD LABORATORY Final Resul t Performing Organization Address [facility] de Phone Number [facility] [address] [place] [address], [place] [phone] * (ABNORMAL) PROTHROMBIN TIME, VENOUS (09/06/2020 4:27 AM CDT) PROTIME 15.4(H) 10.2 - 12.9 SEC 09/06/2020 4:55 AM CDT [facility] INR 1.3 09/06/2020 4:55 AM CDT [facility] Comment: Recommended INR Therapeutic Goals: ??2.0-3.0 Routine Therapy ??2.5-3.5 Mechanical Prosthetic Valves (High Risk) 09/06/2020 4:27 AM CDT us Antonella Mcconnell MD LABORATORY Final Resul t Performing Organization Address City/[facility] Co de Phone Number [facility] [address] [place] [address], [place] [phone] * (ABNORMAL) CBC W/DIFF AUTOMATED (09/06/2020 4:27 AM CDT) [facility] WBC 10.1 4.5 - 11.0 x10'3/uL 09/06/2020 4:41 AM CDT [facility] RBC 4.17(L) 4.20 - 5.40 x10'6/uL 09/06/2020 4:41 AM CDT [facility] HGB 12.1 12.0 - 16.0 G/DL 09/06/2020 4:41 AM CDT [facility] HCT 39.5 38.0 - 48.0 % 09/06/2020 4:41 AM CDT [facility] MCV 94.7 81.0 - 99.0 FL 09/06/2020 4:41 AM CDT [facility] MCH 29.0 27.0 - 31.0 PG 09/06/2020 4:41 AM CDT [facility] MCHC 30.6(L) 32.0 - 36.0 G/DL 09/06/2020 4:41 AM CDT [facility] RDW 13.9 11.5 - 14.5 % 09/06/2020 4:41 AM CDT [facility] PLT 269 130 - 400 x10'3/uL 09/06/2020 4:41 AM CDT [facility] MPV 9.7 9.3 - 12.2 FL 09/06/2020 4:41 AM CDT [facility] DIFFERENTIAL TYPE AUTOMATED DIFFERENTIAL 09/06/2020 4:41 AM CDT [facility] NEUTROPHILS % 59.4 % 09/06/2020 4:41 AM CDT [facility] LYMPHOCYTES % 30.4 % 09/06/2020 4:41 AM CDT [facility] MONOCYTES % 7.0 % 09/06/2020 4:41 AM CDT [facility] EOSINOPHILS 2.2 % 09/06/2020 4:41 AM CDT [facility] BASOPHILS 0.4 % 09/06/2020 4:41 AM CDT [facility] IMMATURE GRANS % 0.6 % 09/07/19 4:41 AM CDT [facility] ABS. NEUTROPHILS TOTAL 6.00 1.80 - 7.70 x10'3/uL 09/06/2020 4:41 AM CDT [facility] ABS. LYMPHOCYTES 3.07 1.00 - 4.80 x10'3/uL 09/06/2020 4:41 AM CDT [facility] ABS. MONOCYTES 0.71 0.24 - 0.86 x10'3/uL 09/06/2020 4:41 AM CDT [facility] ABS. EOSINOPHILS 0.22 0.04 - 0.36 x10'3/uL 09/06/2020 4:41 AM CDT [facility] ABS. BASOPHILS 0.04 0.01 - 0.08 x10'3/uL 09/06/2020 4:41 AM CDT [facility] ABS. IMMATURE GRANULOCYTES 0.06 0.00 - 0.49 x10'3/uL 09/06/2020 4:41 AM CDT [facility] 09/06/2020 4:27 AM CDT us Antonella Mcconnell MD LABORATORY Final Resul t [facility] [address] [place] [address], [place] [phone] * (ABNORMAL) POCT glucose (09/06/2020 1:03 AM CDT) GLUCOSE POC 123(H) 70 - 99 mg/dL 09/06/2020 1:19 AM CDT [facility] 09/06/2020 1:03 AM CDT Antonella Mcconnell MD POCT ORDERABLES - DEVICE Fi nal Result [facility] [address] [place] [address], [place] [phone] * CT ABD+PEL W CON (09/05/2020 10:20 [...] - 2.0 MMOL/L 09/05/2020 9:30 PM CDT [facility] 09/05/2020 9:03 PM CDT Thomas Perry MD LABORATORY Final Re sult [facility] [address] [place] [address], [place] [phone] * CULTURE, BACTERIA, BLOOD (09/05/2020 9:03 PM CDT) SPEC DESCRIPTION BLOOD 09/05/2020 8:31 PM CDT [facility] SPECIAL REQUESTS NO SPECIAL REQUEST 09/05/2020 8:31 PM CDT [facility] CULTURE RESULT NO GROWTH 5 DAYS 09/10/2020 1:43 PM CDT [facility] BLOOD SPECIMEN OBTAINED FOR BLOOD CULTURE / Unknown 09/05/2020 9:03 PM CDT 09/05/2020 9:10 PM CDT Thomas Perry MD MICROBIOLOGY - GENERAL O RDERABLES Final Result [facility] [address] [place] [address], * CULTURE, BACTERIA, BLOOD (09/05/2020 9:03 PM CDT) SPEC DESCRIPTION BLOOD 09/05/2020 8:31 PM CDT [facility] SPECIAL REQUESTS NO SPECIAL REQUEST 09/05/2020 8:31 PM CDT [facility] CULTURE RESULT NO GROWTH 5 DAYS 09/10/2020 1:43 PM CDT [facility] BLOOD SPECIMEN OBTAINED FOR BLOOD CULTURE / Unknown 09/05/2020 9:03 PM CDT 09/05/2020 9:10 PM CDT Thomas Perry MD MICROBIOLOGY - GENERAL O RDERABLES Final Result Performing Organization Address City/[facility]/ZIP Co de Phone Number [facility] [address] [place] [address], [place] [phone] * LIPASE (09/05/2020 9:03 PM CDT) LIPASE 203 73 - 393 UNITS/L 09/05/2020 9:25 PM CDT [facility] 09/05/2020 9:03 PM CDT us Thomas Perry MD LABORATORY Final Re sult [facility] [address] [place] [address], [place] [phone] * (ABNORMAL) URINALYSIS (09/05/2020 9:03 PM CDT) SPECIMEN TYPE URINE CLEAN CATCH 09/05/2020 9:02 PM CDT [facility] COLOR (U) LIGHT YELLOW 09/05/2020 9:24 PM CDT [facility] TRANSPARENCY CLEAR 09/05/2020 9:24 PM CDT [facility] SPECIFIC GRAVITY (U) 1.024 1.001 - 1.030 09/05/2020 9:24 PM CDT [facility] U PH 5.0 5.0 - 9.0 09/05/2020 9:24 PM CDT [facility] LEUKOCYTES (U) NEGATIVE NEGATIVE 09/05/2020 9:24 PM CDT [facility] NITRITES NEGATIVE NEGATIVE 09/05/2020 9:24 PM CDT [facility] PROTEIN (U) NEGATIVE <30 MG/DL 09/05/2020 9:24 PM CDT [facility] URINE GLUCOSE 70(A) NORMAL MG/DL 09/05/2020 9:24 PM CDT [facility] KETONES MG/DL (U) NEGATIVE NEGATIVE MG/DL 09/05/2020 9:24 PM T [facility] UROBILINOGEN NORMAL NORMAL MG/DL 09/05/2020 9:24 PM CDT [facility] BILIRUBIN (U) NEGATIVE NEGATIVE MG/DL 09/05/2020 9:24 PM CDT [facility] BLOOD (U) TRACE(A) NEGATIVE 09/05/2020 9:24 PM CDT [facility] CULTURE & SENSITIVITY INDICATED? CULTURE IS NOT INDICATED 09/05/2020 9:24 PM T [facility] MUCUS RARE /LPF 09/05/2020 9:24 PM CDT [facility] HYALINE CASTS FEW /LPF 09/05/2020 9:24 PM CDT [facility] RBC/HPF <1 <6 /HPF 09/05/2020 9:24 PM CDT [facility] SQUAMOUS EPITHELIALS RARE /HPF 09/05/2020 9:24 PM CDT [facility] URINE SPECIMEN OBTAINED BY CLEAN CATCH PROCEDURE / Unknown 09/05/2020 9:03 PM CDT us Leah Mackay NIGHT STOCKER URINE ORDERABLES Final Result [facility] [address] [place] [address], * (ABNORMAL) COMPREHENSIVE METABOLIC PANEL (09/05/2020 9:03 PM CDT) GLUCOSE 235(H) 70 - 99 MG/DL 09/05/2020 10:04 PM CDT [facility] BUN 22(H) 7 - 18 MG/DL 09/05/2020 10:04 PM CDT [facility] CREATININE S/P/B 1.00 0.55 - 1.02 MG/DL 09/05/2020 10:04 PM CDT [facility] SODIUM S/P/B 137 136 - 145 MMOL/L 09/05/2020 10:04 PM CDT [facility] POTASSIUM S/P/B 3.8 3.5 - 5.1 MMOL/L 09/05/2020 10:04 PM CDT [facility] CHLORIDE S/P/B 104 100 - 108 MMOL/L 09/05/2020 10:04 PM CDT [facility] CO2 26.6 21 - 32 MMOL/L 09/05/2020 10:04 PM [facility] CALCIUM S/P/B 10.0 8.5 - 10.1 MG/DL 09/05/2020 10:04 PM [facility] BILIRUBIN TOTAL S/P/B 0.4 0.2 - 1.2 MG/DL 09/05/2020 10:04 PM [facility] Comment: THIS ASSAY IS NOT RECOMMENDED FOR PATIENTS UNDERGOING TREATMENT WITH ELTROMBOPAG DUE TO THE POTENTIAL FOR FALSELY ELEVATED RESULTS. TOTAL PROTEIN S/P/B 8.5(H) 6.4 - 8.2 G/DL 09/05/2020 10:04 PM [facility] ALBUMIN S/P/B 3.4 3.4 - 5.0 G/DL 09/05/2020 10:04 PM [facility] AST 22 15 - 37 U/L 09/05/2020 10:04 PM [facility] ALT 29 14 - 55 U/L 09/05/2020 10:04 PM [facility] ALKALINE PHOSPHATASE S/P/B 100 50 - 136 U/L 09/05/2020 10:04 PM [facility] ANION GAP 6.4 5 - 15 MMOL/L 09/05/2020 10:04 PM [facility] BUN CREATININE RATIO 22.1 6 - 26 09/05/2020 10:04 PM [facility] A/G RATIO 0.7(L) 1.0 - 2.0 RATIO 09/05/2020 10:04 PM [facility] EGFR NON-AFR. AMER. 59(L) >90 ML/MIN/1.7 3 M2 09/05/2020 10:04 PM T [facility] EGFR AFR. AMER. 69(L) >90 ML/MIN/1.7 3 M2 09/05/2020 10:04 PM CDT [facility] Comment: NOTE: eGFR is not calculated for patients <18 years of age. This is an estimated GFR (CKD EPI) and should not be used for calculating drug doses. 09/05/2020 9:03 PM CDT Leah Mackay NP LABORATORY Final Result [facility] [address] [place] [address], * (ABNORMAL) CBC W/DIFF AUTOMATED (09/05/2020 9:03 PM CDT) WBC 11.7(H) 4.5 - 11.0 x10'3/uL 09/05/2020 9:18 PM CDT [facility] RBC 4.51 4.20 - 5.40 x10'6/uL 09/05/2020 9:18 PM CDT [facility] HGB 12.9 12.0 - 16.0 G/DL 09/05/2020 9:18 PM CDT [facility] HCT 41.8 38.0 - 48.0 % 09/05/2020 9:18 PM CDT [facility] MCV 92.7 80.0 - 94.0 FL 09/05/2020 9:18 PM CDT [facility] MCH 28.6 27.0 - 31.0 PG 09/05/2020 9:18 PM CDT [facility] MCHC 30.9(L) 32.0 - 36.0 G/DL 09/05/2020 9:18 PM CDT [facility] RDW 13.7 11.5 - 14.5 % 09/05/2020 9:18 PM CDT [facility] PLT 312 130 - 400 x10'3/uL 09/05/2020 9:18 PM CDT [facility] MPV 9.9 9.3 - 12.2 FL 09/05/2020 9:18 PM CDT [facility] DIFFERENTIAL TYPE AUTOMATED DIFFERENTIAL 09/05/2020 9:18 PM CDT [facility] NEUTROPHILS % 68.6 % 09/05/2020 9:18 PM CDT [facility] LYMPHOCYTES % 23.3 % 09/05/2020 9:18 PM CDT [facility] MONOCYTES % 5.5 % 09/05/2020 9:18 PM CDT [facility] EOSINOPHILS 1.7 % 09/05/2020 9:18 PM CDT [facility] BASOPHILS 0.3 % 09/05/2020 9:18 PM CDT [facility] IMMATURE GRANS % 0.6 % 09/06/19 9:18 PM CDT [facility] ABS. NEUTROPHILS TOTAL 8.01(H) 1.80 - 7.70 x10'3/uL 09/05/2020 9:18 PM CDT [facility] ABS. LYMPHOCYTES 2.72 1.00 - 4.80 x10'3/uL 09/05/2020 9:18 PM CDT [facility] ABS. MONOCYTES 0.64 0.24 - 0.86 x10'3/uL 09/05/2020 9:18 PM CDT [facility] ABS. EOSINOPHILS 0.20 0.04 - 0.36 x10'3/uL 09/05/2020 9:18 PM CDT [facility] ABS. BASOPHILS 0.03 0.01 - 0.08 x10'3/uL 09/05/2020 9:18 PM CDT [facility] ABS. IMMATURE GRANULOCYTES 0.07 0.00 - 0.49 x10'3/uL 09/05/2020 9:18 PM CDT [facility] 09/05/2020 9:03 PM CDT Leah Mackay NP LABORATORY Final Result [facility] [address] [place] [address], * CT ABD+PEL WO CON (09/05/2020 8:22 [...] parameters not met)[id number] (Not Given - Provider: Flavia Khan RN [...] Physician] documented in this encounter Care Teams Compressor Station Engineer Chief Relationship Specialty Start Date End Date Ger[facility] Hoffman [facility] [address] [place] [address] PCP - General FAMILY PRACTICE 08/20/17 Meena Bansal [facility] [address] [place], [place] [address] [place] Bike Technician CARDIOVASCULAR DISEASE 04/24/16 documented as of this encounter
--- OUTSIDE RECORDS SUMMARY | 2024-04-26 07:01 | XMS_ITS | Encounter Summary ---
Author Organization [facility] Address [address] [place] [address]. 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 No / Unsure 05/22/2021 5:44 PM CALENDER LET OFF OPERATOR documented as of this encounter Functional [...] Rule Out 05/22/2021 05/22/2021 05/22/2021 10:12 PM CALENDER LET OFF OPERATOR documented as of this encounter Care Teams Senior Operations Analyst Relationship Specialty Start Date End Date Justen Gale MD [facility]. [address] [address] PCP - General FAMILY PRACTICE 08/20/17 Meena Bansal MD [facility]. [facility] [address] [place] [address] José Luis Slimer CARDIOVASCULAR DISEASE 04/24/16 documented as of this encounter
--- OUTSIDE RECORDS SUMMARY | 2024-04-26 07:01 | XMS_ITS | Encounter Summary ---
Author Organization [facility] Address [address] [place] [address]. [place] [address] [place] [address] Care Team Providers Care Chemical Cell Changer Name Role Phone Meena Bansal MD Unavailable [phone] Justen Gale MD Primary Care Provider [phone] Reason for Visit * Reason Comments Chest Pain Suspected Coronavirus (Covid-19) Encounter Details Date Type Department Care Team (Late st Contact Info) Description 04/19/2021 8:17 PM MULTIPLE DRUM SANDER - 04/19/2021 11:30 PM MULTIPLE DRUM SANDER Emergency [facility] Emergency Room [address] [place], [place] [id number] Jaswinder Gaytan MD [address] [place] [address] Chest Pain; Suspected Coronavirus (Covid-19) Discharge Disposition: [...] Sexual Orientation Straight 03/18/2018 3: 01 AM MULTIPLE DRUM SANDER COVID-19 Exposure Response Date Recorded In the last month, have you been in contact with someone who was confirmed or suspected to have Coronavirus / COVID-19? Yes 04/19/2021 8:07 PM MULTIPLE DRUM SANDER documented as of this encounter Last Filed Vital Signs Vital Sign Reading Time Taken Comments Blood Pressure 163/77 04/19/2021 8:12 PM MULTIPLE DRUM SANDER Pulse 90 04/19/2021 8:12 PM MULTIPLE DRUM SANDER Temperature 36.6 ??C (97.8 ??F) 04/19/2021 8:12 PM CS T Respiratory Rate 24 04/19/2021 8:12 PM MULTIPLE DRUM SANDER Oxygen Saturation 99% 04/19/2021 8:12 PM MULTIPLE DRUM SANDER Inhaled Oxygen Concentration - - Weight 125.2 kg (276 lb) 04/19/2021 8:12 PM MULTIPLE DRUM SANDER Height 154.9 cm (5' 1 ) 04/19/2021 8:12 PM MULTIPLE DRUM SANDER Body Mass Index 52.15 04/19/2021 8:12 PM MULTIPLE DRUM SANDER documented in this encounter Functional Status * [...] Jaswinder Gaytan MD - 04/19/2021 10:58 PM MULTIPLE DRUM SANDER Your symptoms indicate that you may have [...] care by your primary care physician or publicity consultant. Your medication list was reviewed prior [...] such as many narcotic drug combinations and zdsh-hle-lmabspn cold medicines. Your feedback is important to us. Please fill out the survey you will get in the mail. We need yourinput to give you the best care possible! With your feedback we??ll know where we need to focus ourefforts to provide very good service to our patients! IPLE DRUM SANDER * Attachments The following attachments cannot be sent through Care Everywhere. * COVID-19 Discharge Instructions (Singaporean) * Viral Syndrome Discharge Instructions (Singaporean) documented in this encounter Medications at Time [...] a person having tested positive for a COVID-19/[id number] infection on 16 April. Of further note, [...] encounter of 04/19/21 ECG 12 lead Narrative [address] Test Date: 2021-04-19 Pat Name: MOHSEN MARQUES Department: Room: [facility] Gender: Female Tailercpa: ISABELLA : 1955 Requested By: JOANN CASILLAS Order Number: [id number] Reading MD: Jacek Navarro Measurements Intervals [place] Rate: 96 P: 41 NH: 133 QRS: -1 QRSD: 87 T: 29 QT: 328 QTc: 415 Interpretive Statements SINUS RHYTHM Compared to ECG 03/03/2021 03:24:22 No significant changes Jaswinder Gaytan M.D. Other ischemic changes, not STEMI CRITICAL ALERT ISSUED ON 04-19-2021 20:27:48 IPLE DRUM SANDER LABORATORY STUDIES: Results for orders placed or [...] ONSET [id number] HOSPITALIZATION STATUS UNKNOWN RESIDENT OF [facility] NO IMAGING STUDIES: XR CHEST PORTABLE Final Result by User, [email or web address] (04/19 2109) Examination: XR CHEST PORTABLE Exam [...] VIRAL SYNDROME most likely related to a COVID-19/[id number] INFECTION. They have been ambulated in the [...] I dictated portions of this note using Avancert speech recognition software. Occasional wrong word or sound-alike substitutions may have occurred due to the inherent limitations of voice recognition software. Please read the chart carefully and recognize, using context, where the substitutions may have occurred. If there are any questions, please contact me via Pipe[employer] Halo or other HIPAA compliant communication medium for clarification. Jaswinder Gaytan MD 05/20/21 0709 IPLE DRUM SANDER * DICK Woods - 04/19/2021 10:51 PM CST Bed: 24 Expected date: Expected time: Means of arrival: Comments: IPLE DRUM SANDER * HUMAIRA Holder - 04/19/2021 8:16 PM CST [place] EMERGENCY DEPARTMENT ENCOUNTER Medical Screening Examination [...] Jhon Carrizales MD at 04/19/2021 11:24 PM MULTIPLE DRUM SANDER IPLE DRUM SANDER IPLE DRUM SANDER * Heaven Romero RN - 04/19/2021 8:10 PM CST Pt arriving via EMS from home c/o mid sternal chest pain starting this afternoon. Pt reports headache, chills, fever since this morning. Pt was exposed to COVID on the . Pt is COVID vaccinated.HEAVEN ROMERO RN IPLE DRUM SANDER documented in this encounter Plan of Treatment Not on file documented as of this encounter Procedures Procedure Name Priority Date/Time Associated Diagnosis Comments XR CHEST PORTABLE STAT 04/19/2021 8:5 5 PM MULTIPLE DRUM SANDER CORONAVIRUS (COVID-19) INFLUENZA A & B ANTIGEN IA PANEL STAT 04/19/2021 8:40 PM MULTIPLE DRUM SANDER COMPREHENSIVE METABOLIC PANEL STAT 04/19/2021 8:38 PM MULTIPLE DRUM SANDER CBC W/DIFF AUTOMATED STAT 04/19/2021 8:38 PM MULTIPLE DRUM SANDER TROPONIN, QUANT STAT 04/19/2021 8:38 PM MULTIPLE DRUM SANDER ECG 12-LEAD STAT 04/19/2021 8:23 PM MULTIPLE DRUM SANDER documented in this encounter Results * XR CHEST PORTABLE (04/19/2021 8:55 PM MULTIPLE DRUM SANDER) Anatomical Region Laterality Modality Chest Radiographic Lizeth ging 04/19/2021 9:07 PM MULTIPLE DRUM SANDER Impressions 04/19/2021 9:08 PM MULTIPLE DRUM SANDER IMPRESSION: No radiographic evidence of active chest disease. Ordered By: JOANN CASILLAS Interpreted By: Bubba Bray MD, 04/19/2021 9:07 PM Narrative 04/19/2021 9:08 PM MULTIPLE DRUM SANDER Examination: XR CHEST PORTABLE Exam time: 04/19/2021 [...] Bray MD, 04/19/2021 9:07 PM Joann Casillas CVOR NURSE GENERAL IMAGING Final Resul t * (ABNORMAL) CORONAVIRUS (COVID-19) INFLUENZA A & B ANTIGEN IA PANEL (04/19/2021 8:40 PM MULTIPLE DRUM SANDER) CORONAVIRUS ANTIGEN IA POSITIVE(AA ) NEGATIVE 04/19/2021 10:14 PM MULTIPLE DRUM SANDER [facility] Comment: THIS TEST HAS BEEN AUTHORIZED BY THE FDA UNDER AN EMERGENCY USE AUTHORIZATION (EUA) FOR USE BY AUTHORIZED LABORATORIES. Successful Call: [id number] called 04/19/2021 10:16 PM to EMERGENCY ROOM ([id number]/JOSE LOPEZ) by [id number]. Read Back: Yes INFLUENZA A NEGATIVE NEGATIVE 04/19/2021 10:14 PM MULTIPLE DRUM SANDER [facility] INFLUENZA B NEGATIVE NEGATIVE 04/19/2021 10:14 PM MULTIPLE DRUM SANDER [facility] Comment: Interpretation: Negative for [...] order. SPECIMEN TYPE NASAL 04/19/2021 8:40 PM MULTIPLE DRUM SANDER [facility] FIRST TEST NO 04/19/2021 8:40 PM MULTIPLE DRUM SANDER [facility] EMPLOYED IN HEALTHCARE NO 04/19/2021 8:40 PM MULTIPLE DRUM SANDER [facility] SYMPTOMATIC DEFINED BY CDC YES 04/19/2021 8:40 PM MULTIPLE DRUM SANDER [facility] DATE OF SYMPTOM ONSET [id number]/19/2021 8:40 PM MULTIPLE DRUM SANDER [facility] HOSPITALIZATION STATUS UNKNOWN 04/19/2021 8:40 PM MULTIPLE DRUM SANDER [facility] RESIDENT OF [facility] NO 04/19/2021 8:40 PM MULTIPLE DRUM SANDER [facility] NASAL STRUCTURE / Unknown 04/19/2021 8:40 PM MULTIPLE DRUM SANDER Joann Casillas CVOR NURSE MICROBIOLOGY - GENERAL ORDNicholas SPEARS Final Result [facility] [address] [place] [address], * TROPONIN, QUANT (04/19/2021 8:38 PM MULTIPLE DRUM SANDER) TROPONIN I HIGH SENSITIVITY 10 <54 ng/L 04/19/2021 9:22 PM MULTIPLE DRUM SANDER [facility] Comment: HIGH DOSES OF BIOTIN, TROPONIN-SPECIFIC AUTOANTIBODIES, AND ANTIBODY THERAPY CONTAINING HAMA MAY INTERFERE WITH THIS TEST RESULT. CORRELATION TO CLINICAL HISTORY AND PRESENTATION RECOMMENDED. 04/19/2021 8:38 PM MULTIPLE DRUM SANDER Joann Casillas [facility] Final Resul t [facility] [address] [place] [address], [place] [phone] * (ABNORMAL) COMPREHENSIVE METABOLIC PANEL (04/19/2021 8:38 PM MULTIPLE DRUM SANDER) [facility] GLUCOSE 94 70 - 99 MG/DL 04/19/2021 9:22 PM MULTIPLE DRUM SANDER [facility] BUN 14 7 - 18 MG/DL 04/19/2021 9:22 PM MULTIPLE DRUM SANDER [facility] CREATININE S/P/B 0.78 0.55 - 1.02 MG/DL 04/19/2021 9:22 PM MULTIPLE DRUM SANDER [facility] SODIUM S/P/B 140 136 - 145 MMOL/L 04/19/2021 9:22 PM MULTIPLE DRUM SANDER [facility] POTASSIUM S/P/B 4.2 3.5 - 5.1 MMOL/L 04/19/2021 9:22 PM [facility] Comment:SLIGHT HEMOLYSIS, RE SULT MAY BE AFFECTED. CHLORIDE S/P/B 107 100 - 108 MMOL/L 04/19/2021 9:22 PM MULTIPLE DRUM SANDER [facility] CO2 27.2 21 - 32 MMOL/L 04/19/2021 9:22 PM MULTIPLE DRUM SANDER [facility] CALCIUM S/P/B 9.2 8.5 - 10.1 MG/DL 04/19/2021 9:22 PM MULTIPLE DRUM SANDER [facility] BILIRUBIN TOTAL S/P/B 0.4 0.2 - 1.2 MG/DL 04/19/2021 9:22 PM MULTIPLE DRUM SANDER [facility] Comment: THIS ASSAY IS NOT RECOMMENDED FOR PATIENTS UNDERGOING TREATMENT WITH ELTROMBOPAG DUE TO THE POTENTIAL FOR FALSELY ELEVATED RESULTS. TOTAL PROTEIN S/P/B 8.2 6.4 - 8.2 G/DL 04/19/2021 9:22 PM [facility] ALBUMIN S/P/B 3.1(L) 3.4 - 5.0 G/DL 04/19/2021 9:22 PM [facility] AST 41(H) 15 - 37 U/L 04/19/2021 9:22 PM [facility] Comment:SLIGHT HEMOLYSIS, RE SULT MAY BE AFFECTED. ALT 38 14 - 55 U/L 04/19/2021 9:22 PM [facility] ALKALINE PHOSPHATASE S/P/B 65 50 - 136 U/L 04/19/2021 9:22 PM [facility] ANION GAP 5.8 5 - 15 MMOL/L 04/19/2021 9:22 PM [facility] BUN CREATININE RATIO 18.1 6 - 26 04/19/2021 9:22 PM [facility] A/G RATIO 0.6(L) 1.0 - 2.0 RATIO 04/19/2021 9:22 PM [facility] EGFR NON-AFR. AMER. 80(L) >90 ML/MIN/1.7 3 M2 04/19/2021 9:22 PM [facility] EGFR AFR. AMER. >90 >90 ML/MIN/1.7 3 M2 04/19/2021 9:22 PM [facility] Comment: NOTE: eGFR is not calculated for patients <18 years of age. This is an estimated GFR (CKD EPI) and should not be used for calculating drug doses. 04/19/2021 8:38 PM MULTIPLE DRUM SANDER Joann OLGUINP LABORATORY Final Resul t [facility] [address] [place] [address], * (ABNORMAL) CBC W/DIFF AUTOMATED (04/19/2021 8:38 PM MULTIPLE DRUM SANDER) [facility] WBC 7.8 4.5 - 11.0 x10'3/uL 04/19/2021 8:58 PM MULTIPLE DRUM SANDER [facility] RBC 4.30 4.20 - 5.40 x10'6/uL 04/19/2021 8:58 PM MULTIPLE DRUM SANDER [facility] HGB 12.4 12.0 - 16.0 G/DL 04/19/2021 8:58 PM MULTIPLE DRUM SANDER [facility] HCT 39.4 38.0 - 48.0 % 04/19/2021 8:58 PM MULTIPLE DRUM SANDER [facility] MCV 91.6 81.0 - 99.0 FL 04/19/2021 8:58 PM MULTIPLE DRUM SANDER [facility] MCH 28.8 27.0 - 31.0 PG 04/19/2021 8:58 PM MULTIPLE DRUM SANDER [facility] MCHC 31.5(L) 32.0 - 36.0 G/DL 04/19/2021 8:58 PM MULTIPLE DRUM SANDER [facility] RDW 13.6 11.5 - 14.5 % 04/19/2021 8:58 PM MULTIPLE DRUM SANDER [facility] PLT 251 130 - 400 x10'3/uL 04/19/2021 8:58 PM MULTIPLE DRUM SANDER [facility] MPV 10.0 9.3 - 12.2 FL 04/19/2021 8:58 PM [facility] DIFFERENTIAL TYPE AUTOMATED DIFFERENTIAL 04/19/2021 8:58 PM MULTIPLE DRUM SANDER [facility] NEUTROPHILS % 76.3 % 04/19/2021 8:58 PM MULTIPLE DRUM SANDER [facility] LYMPHOCYTES % 10.0 % 04/19/2021 8:58 PM MULTIPLE DRUM SANDER [facility] MONOCYTES % 11.1 % 04/19/2021 8:58 PM MULTIPLE DRUM SANDER [facility] EOSINOPHILS 1.5 % 04/19/2021 8:58 PM MULTIPLE DRUM SANDER [facility] BASOPHILS 0.3 % 04/19/2021 8:58 PM MULTIPLE DRUM SANDER [facility] IMMATURE GRANS % 0.8 % 04/19/20 8:58 PM MULTIPLE DRUM SANDER [facility] ABS. NEUTROPHILS TOTAL 5.98 1.80 - 7.70 x10'3/uL 04/19/2021 8:58 PM MULTIPLE DRUM SANDER [facility] ABS. LYMPHOCYTES 0.78(L) 1.00 - 4.80 x10'3/uL 04/19/2021 8:58 PM MULTIPLE DRUM SANDER [facility] ABS. MONOCYTES 0.87(H) 0.24 - 0.86 x10'3/uL 04/19/2021 8:58 PM MULTIPLE DRUM SANDER [facility] ABS. EOSINOPHILS 0.12 0.04 - 0.36 x10'3/uL 04/19/2021 8:58 PM MULTIPLE DRUM SANDER [facility] ABS. BASOPHILS 0.02 0.01 - 0.08 x10'3/uL 04/19/2021 8:58 PM MULTIPLE DRUM SANDER [facility] ABS. IMMATURE GRANULOCYTES 0.06 0.00 - 0.49 x10'3/uL 04/19/2021 8:58 PM MULTIPLE DRUM SANDER [facility] 04/19/2021 8:38 PM MULTIPLE DRUM SANDER us Joann Casillas CVOR NURSE LABORATORY Final Resul t [facility] [address] [place] [address], * ECG 12 lead (04/19/2021 8:23 PM MULTIPLE DRUM SANDER) 04/19/2021 8:23 PM MULTIPLE DRUM SANDER Narrative [facility] - 04/20/2021 9:58 PM MULTIPLE DRUM SANDER ?[facility] ? [address] ? Test Date: ?2021-04-19 Pat Name: ? MOHSEN MARQUES ?Department: ? Room: ? EXAM24 Gender: ? Female ? Tailercpa: ?? GDD : ?1955 ? Requested By: JOANN CASILLAS Order Number: [id number] ? Reading MD: ?? Jacek Navarro ? Measurements Intervals ?[place] ? Rate: ? 96 ? P: ?41 NH: ? 133 ?QRS: ?-1 QRSD: ? 87 ? T: ?29 QT: ? 328 ? QTc: ?415 ? Interpretive Statements SINUS RHYTHM Compared to ECG 03/03/2021 03:24:22 No significant changes Jaswinder Gaytan M.D. Other ischemic changes, not STEMI CRITICAL ALERT ISSUED ON 04-19-2021 20:27:48 IPLE DRUM SANDER Procedure Note Jacek Navarro MD - 04/20/[address] Test Date: 2021-04-19 Pat Name: MOHSEN MARQUES Department: Room: [facility] Gender: Female Tailercpa: ISABELLA : 1955 Requested By: JOANN CASILLAS Order Number: [id number] Reading MD: Jacek Navarro Measurements Intervals [place] Rate: 96 P: 41 NH: 133 QRS: -1 QRSD: 87 T: 29 QT: 328 QTc: 415 Interpretive Statements SINUS RHYTHM Compared to ECG 03/03/2021 03:24:22 No significant changes Jaswinder Gaytan M.D. Other ischemic changes, not STEMI CRITICAL ALERT ISSUED ON 04-19-2021 20:27:48 IPLE DRUM SANDER us Joann Casillas CVOR NURSE ECG ORDERABLES Final Resul t [facility] [...] in 24 hours. Given 04/19/2021 8:49 PM MULTIPLE DRUM SANDER 1,000 mg documented in this encounter Active and Recently Administered Medications Times are shown in MULTIPLE DRUM SANDER. Scheduled Medication Order 04/17/2021 04/18/2021 04/19/2021 acetaminophen [...] Rule Out 04/19/2021 04/19/2021 04/19/2021 10:15 PM MULTIPLE DRUM SANDER COVID-19 Confirmed 04/19/2021 04/19/2021 12:32 AM MULTIPLE DRUM SANDER documented as of this encounter Care Teams Chemical Cell Changer Relationship Specialty Start Date End Date Justen Gale MD [address] [address] PCP - General FAMILY PRACTICE 08/20/17 Meena Bansal MD [facility]. [id number] [place] [address] José Luis Material Handler CARDIOVASCULAR DISEASE 04/24/16 documented as of this encounter
--- OUTSIDE RECORDS SUMMARY | 2024-04-26 07:01 | XMS_ITS | Encounter Summary ---
Author Organization [facility] Address [address] [place] [address]. [place] [address] [place] [address] Care Team Providers Care Felled Seam Operator Name Role Phone Meena Bansal MD Unavailable [phone] Justen Gale MD Primary Care Provider [phone] Encounter Details Date Type Department Care Team [...] Sexual Orientation Straight 03/18/2018 3: 01 AM INVENTORY CONTROL ASSOCIATE COVID-19 Exposure Response Date Recorded In the [...] on filedocumented in this encounter Care Teams Felled Seam Operator Relationship Specialty Start Date End Date Justen Gale MD [facility]. [address] [address] PCP - General FAMILY PRACTICE 08/20/17 Meena Bansal MD [facility]. [facility] [address] [place] [address] [place] Real Estate Development Manager CARDIOVASCULAR DISEASE 04/24/16 documented as of this encounter
--- OUTSIDE RECORDS SUMMARY | 2024-04-26 07:01 | XMS_ITS | Encounter Summary ---
Author Organization [facility] Address [address] [place] [address]. [place] [address] [place] [address] Care Team Providers Care Cuff Stitcher Name Role Phone Meena Bansal MD Unavailable [phone] Justen Gale MD Primary Care Provider [phone] Encounter Details Date Type Department Care Team [...] Sexual Orientation Straight 03/18/2018 3: 01 AM SAFE TECHNICIAN COVID-19 Exposure Response Date Recorded In the last 10 days, have jenny u been in contact with someone who was confirmed or suspected to have Coronavirus/COVID-19? No / Unsure 05/31/2021 6:26 PM SAFE TECHNICIAN documented as of this encounter Functional Status [...] on filedocumented in this encounter Care Teams Cuff Stitcher Relationship Specialty Start Date End Date Justen Gale MD [address] [address] PCP - General FAMILY PRACTICE 08/20/17 Meena Bansal MD [facility]. [facility] [address] [place] [address] [place] Loss Prevention Investigator CARDIOVASCULAR DISEASE 04/24/16 documented as of this encounter
--- OUTSIDE RECORDS SUMMARY | 2024-04-26 07:01 | XMS_ITS | Encounter Summary ---
Author Organization [facility] Address [address] [place] [address]. [place] [address] [place] [address] Care Team Providers Care Filter Changer Name Role Phone Meena Bansal MD Unavailable [phone] Justen Gale MD Primary Care Provider [phone] Encounter Details Date Type Department Care Team [...] Sexual Orientation Straight 03/18/2018 3: 01 AM [employer] COVID-19 Exposure Response Date Recorded In the [...] on filedocumented in this encounter Care Teams Filter Changer Relationship Specialty Start Date End Date Justen Gale MD [facility]. [address] [address] PCP - General FAMILY PRACTICE 08/20/17 Meena Bansal MD [facility]. [facility] [address] [place] [address] [place] Diesel Power Shovel Operator CARDIOVASCULAR DISEASE 04/24/16 documented as of this encounter
--- OUTSIDE RECORDS SUMMARY | 2024-04-26 07:01 | XMS_ITS | Encounter Summary ---
Author Organization [facility] Address [address] [place] [address]. [place] [address] [place] [address] Care Team Providers Care Supervisor Records Change Name Role Phone Meena Bansal MD Unavailable [phone] Gerardo Hoffman MD Primary Care Provider [phone] Reason for Visit * Reason Comments Weakness Encounter Details Date Type Department Care Team (Late st Contact Info) Description 05/22/2021 6:10 PM MOISTURE METER OPERATOR - 05/22/2021 10:35 PM MOISTURE METER OPERATOR Emergency [facility] Emergency Room [address] [place], [place] [address] Jhon Carrizales MD [address], [place] [id number] Weakness Discharge Disposition: Home or Self Care [...] Sexual Orientation Straight 03/18/2018 3: 01 AM MOISTURE METER OPERATOR COVID-19 Exposure Response Date Recorded In the last month, have you been in contact with someone who was confirmed or suspected to have Coronavirus / COVID-19? No / Unsure 05/22/2021 5:44 PM MOISTURE METER OPERATOR documented as of this encounter Last Filed Vital Signs Vital Sign Reading Time Taken Comments Blood Pressure 131/88 05/22/2021 10:15 PM MOISTURE METER OPERATOR Pulse 78 05/22/2021 10:15 PM MOISTURE METER OPERATOR Temperature 36.2 ??C (97.2 ??F) 05/22/2021 5:54 PM CS T Respiratory Rate 18 05/22/2021 10:15 PM MOISTURE METER OPERATOR Oxygen Saturation 99% 05/22/2021 10:15 PM MOISTURE METER OPERATOR Inhaled Oxygen Concentration - - Weight 128.8 kg (284 lb) 05/22/2021 5:54 PM MOISTURE METER OPERATOR Height 154.9 cm (5' 1 ) 05/22/2021 5:54 PM MOISTURE METER OPERATOR Body Mass Index 53.66 05/22/2021 5:54 PM MOISTURE METER OPERATOR documented in this encounter Functional Status * [...] sent through Care Everywhere. * Generalized Weakness (Citizen Of [place]) documented in this encounter [...] Carrizales MD - 05/22/2021 6:36 PM CST [place], [place] EMERGENCY DEPARTMENT ENCOUNTER Chief Complaint Chief Complaint Patient presents with ??? Weakness History of Present Illness Provider at Bedside Date/Time Event User Comments 05/22/21 9801 Provider at Bedside Assessing Patient TYLOR GUIDO History provided by: Patient body and frame technician used: No 65-year-old female with a pmh [...] ECG [address] [facility] [address] [place] [address] Test Date: 2021-05-22 Pat Name: MOHSEN MARQUES Department: Room: Gender: Female Recycle Driver: JODY : 1955 Requested By: TYLOR GUIDO Order Number: [id number] Reading MD: Measurements Intervals [place] Rate: 93 P: 35 TX: 130 QRS: -6 QRSD: 93 T: 41 [...] COLOR (U) LIGHT YELLOW TRANSPARENCY CLEAR Specific [place] (U) 1.023 1.001 - 1.030 U PH [...] ONSET [id number] HOSPITALIZATION STATUS UNKNOWN RESIDENT OF [facility] NO IMAGING STUDIES XR CHEST PORTABLE Final Result by User, [id number] (05/22 1909) EXAMINATION: CHEST X-RAY ONE VIEW [...] the notes in the presence of Jhon Carrizales MD. Take no action on this note until reviewed and authenticated by the physician. Jhon Carrizales MD 05/22/215 TURE METER OPERATOR * LINDA Keen - 05/22/2021 5:57 PM CST [place], [place] EMERGENCY DEPARTMENT ENCOUNTER Medical Screening Examination [...] Marlyn Stuart MD at 05/22/2021 6:05 PM MOISTURE METER OPERATOR TURE METER OPERATOR TURE METER OPERATOR TURE METER OPERATOR * Lachelle Green RN - 05/22/2021 5:54 PM CST To triage via wheelchair c/o bodyaches, weakness x 2 days. Also reports intermittent numbness to both hands. Denies cough, runny nose, sorethroat. Pt also states memory has been foggy . TURE METER OPERATOR documented in this encounter Plan of Treatment Not on file documented as of this encounter Procedures Procedure Name Priority Date/Time Associated Diagnosis Comments URINALYSIS WI REFLEX TO CULTURE STAT 05/22/2021 8:25 PM MOISTURE METER OPERATOR TROPONIN, QUANT STAT 05/22/2021 8:00 PM MOISTURE METER OPERATOR ECG 12-LEAD STAT 05/22/2021 6:44 PM MOISTURE METER OPERATOR XR CHEST PORTABLE STAT 05/22/2021 6:4 1 PM MOISTURE METER OPERATOR CORONAVIRUS (COVID-19) ANTIGEN STAT 05/22/2021 6:23 PM MOISTURE METER OPERATOR COMPREHENSIVE METABOLIC PANEL STAT 05/22/2021 6:23 PM MOISTURE METER OPERATOR CBC W/DIFF AUTOMATED STAT 05/22/2021 6:23 PM MOISTURE METER OPERATOR TROPONIN, QUANT STAT 05/22/2021 6:23 PM MOISTURE METER OPERATOR documented in this encounter Results * (ABNORMAL) URINALYSIS WI REFLEX TO CULTURE (05/22/2021 8:25 PM MOISTURE METER OPERATOR) SPECIMEN TYPE URINE CLEAN CATCH 05/22/2021 8:23 PM MOISTURE METER OPERATOR [facility] COLOR (U) LIGHT YELLOW 05/22/2021 9:02 PM [facility] TRANSPARENCY CLEAR 05/22/2021 9:02 PM [facility] SPECIFIC GRAVITY (U) 1.023 1.001 - 1.030 05/22/2021 9:02 PM [facility] U PH 6.0 5.0 - 9.0 05/22/2021 9:02 PM [facility] LEUKOCYTES (U) NEGATIVE NEGATIVE 05/22/2021 9:02 PM [facility] NITRITES NEGATIVE NEGATIVE 05/22/2021 9:02 PM [facility] PROTEIN (U) NEGATIVE <30 MG/DL 05/22/2021 9:02 PM [facility] URINE GLUCOSE NORMAL NORMAL MG/DL 05/22/2021 9:02 PM [facility] KETONES MG/DL (U) NEGATIVE NEGATIVE MG/DL 05/22/2021 9:02 PM [facility] UROBILINOGEN NORMAL NORMAL MG/DL 05/22/2021 9:02 PM [facility] BILIRUBIN (U) NEGATIVE NEGATIVE MG/DL 05/22/2021 9:02 PM [facility] BLOOD (U) TRACE(A) NEGATIVE 05/22/2021 9:02 PM [facility] CULTURE & SENSITIVITY INDICATED? CULTURE IS NOT INDICATED 05/22/2021 9:02 PM [facility] MUCUS RARE /LPF 05/22/2021 9:02 PM [facility] WBC/HPF 2 <6 /HPF 05/22/2021 9:02 PM [facility] RBC/HPF 6(H) <6 /HPF 05/22/2021 9:02 PM [facility] SQUAMOUS EPITHELIALS RARE /HPF 05/22/2021 9:02 PM MOISTURE METER OPERATOR [facility] URINE SPECIMEN OBTAINED BY CLEAN CATCH PROCEDURE / Unknown 05/22/2021 8:25 PM MOISTURE METER OPERATOR Tylor MCKEON URINE ORDERABLES Final Res ult Performing Organization Address [facility] de Phone Number [address] [address], * TROPONIN, QUANT (05/22/2021 8:00 PM MOISTURE METER OPERATOR) TROPONIN I HIGH SENSITIVITY 10 <54 ng/L 05/22/2021 8:39 PM MOISTURE METER OPERATOR [facility] Comment: HIGH DOSES OF BIOTIN, TROPONIN-SPECIFIC AUTOANTIBODIES, AND ANTIBODY THERAPY CONTAINING HAMA MAY INTERFERE WITH THIS TEST RESULT. CORRELATION TO CLINICAL HISTORY AND PRESENTATION RECOMMENDED. 05/22/2021 8:00 PM MOISTURE METER OPERATOR Tylor MCKEON LABORATORY Final Resu lt Performing Organization Address [facility] de Phone Number [facility] [address] [place] [address], * ECG 12 lead (05/22/2021 6:44 PM MOISTURE METER OPERATOR) 05/22/2021 6:44 PM MOISTURE METER OPERATOR Narrative [facility] - 05/23/2021 7:44 AM MOISTURE METER OPERATOR ?[place] ? [address] [facility] ? Test Date: ?2021-05-22 Pat Name: ? MOHSEN MARQUES ?Department: ? Room: ? EXAM15 Gender: ? Female ? Recycle Driver: ?? SET : ?1955 ? Requested By: TYLOR GUIDO Order Number: [id number] ? Reading MD: ?? Santos Bowen ? Measurements Intervals ?[place] ? Rate: ? 93 ? P: ?35 TX: ? 130 ?QRS: ?-6 QRSD: ? 93 ? T: ?41 QT: ? 358 ? QTc: ?446 ? Interpretive Statements SINUS RHYTHM Compared to ECG 05/15/2021 14:52:08 No significant changes TURE METER OPERATOR Procedure Note Santos Bowen MD - 05/23/2021 [facility] [address] Test Date: 2021-05-22 Pat Name: MOHSEN MARQUES Department: Room: EXAM15 Gender: Female Recycle Driver: SET : 1955 Requested By: TYLOR GUIDO Order Number: [id number] Reading MD: Santos Bowen Measurements Intervals [place] Rate: 93 P: 35 TX: 130 QRS: -6 QRSD: 93 T: 41 QT: 358 QTc: 446 Interpretive Statements SINUS RHYTHM Compared to ECG 05/15/2021 14:52:08 No significant changes TURE METER OPERATOR us Tylor MCKEON ECG ORDERABLES Final Resu lt [facility] RAD * XR CHEST PORTABLE (05/22/2021 6:41 PM MOISTURE METER OPERATOR) Anatomical Region Laterality Modality Chest Radiographic Lizeth ging 05/22/2021 7:08 PM MOISTURE METER OPERATOR Impressions 05/22/2021 7:09 PM MOISTURE METER OPERATOR IMPRESSION: No acute cardiopulmonary process. Referred By: ?? Interpreted By: Tina Ariza MD, 05/22/2021 7:08 PM Narrative 05/22/2021 7:09 PM MOISTURE METER OPERATOR EXAMINATION: CHEST X-RAY ONE VIEW EXAM TIME: [...] (COVID-19) ANTIGEN [IN-HOUSE ROBERTO] (05/22/2021 6:23 PM MOISTURE METER OPERATOR) CORONAVIRUS ANTIGEN IA NEGATIVE NEGATIVE 05/22/2021 10:11 PM MOISTURE METER OPERATOR [facility] Comment: NEGATIVE RESULTS SHOULD BE TREATED [...] LABORATORIES. SPECIMEN TYPE NASAL 05/22/2021 6:23 PM MOISTURE METER OPERATOR [facility] FIRST TEST NO 05/22/2021 6:23 PM MOISTURE METER OPERATOR [facility] EMPLOYED IN HEALTHCARE NO 05/22/2021 6:23 PM MOISTURE METER OPERATOR [facility] SYMPTOMATIC DEFINED BY CDC YES 05/22/2021 6:23 PM MOISTURE METER OPERATOR [facility] DATE OF SYMPTOM ONSET 2021052005/22/2021 6:23 PM MOISTURE METER OPERATOR [facility] HOSPITALIZATION STATUS UNKNOWN 05/22/2021 6:23 PM MOISTURE METER OPERATOR [facility] RESIDENT OF [facility] NO 05/22/2021 6:23 PM MOISTURE METER OPERATOR [facility] Specimen from nose (specimen) NASAL STRUCTURE / Unknown 05/22/2021 6:23 PM MOISTURE METER OPERATOR Tylor MCKEON MICROBIOLOGY - GENERAL ORD ERABLES Final Result Performing Organization Address [facility]/ZIP Co de Phone Number [facility] [address] [place] [address], [place] [phone] * TROPONIN, QUANT (05/22/2021 6:23 PM MOISTURE METER OPERATOR) TROPONIN I HIGH SENSITIVITY 9 <54 ng/L 05/22/2021 7:12 PM MOISTURE METER OPERATOR [facility] Comment: HIGH DOSES OF BIOTIN, TROPONIN-SPECIFIC AUTOANTIBODIES, AND ANTIBODY THERAPY CONTAINING HAMA MAY INTERFERE WITH THIS TEST RESULT. CORRELATION TO CLINICAL HISTORY AND PRESENTATION RECOMMENDED. 05/22/2021 6:23 PM MOISTURE METER OPERATOR Tylor MCKEON LABORATORY Final Resu lt Performing Organization Address City/[facility]/ZIP Co de Phone Number [facility] [address] [place] [address], [place] [phone] * (ABNORMAL) COMPREHENSIVE METABOLIC PANEL (05/22/2021 6:23 PM MOISTURE METER OPERATOR) GLUCOSE 137(H) 70 - 99 MG/DL 05/22/2021 7:12 PM MOISTURE METER OPERATOR [facility] BUN 20(H) 7 - 18 MG/DL 05/22/2021 7:12 PM [facility] CREATININE S/P/B 0.94 0.55 - 1.02 MG/DL 05/22/2021 7:12 PM [facility] SODIUM S/P/B 138 136 - 145 MMOL/L 05/22/2021 7:12 PM [facility] POTASSIUM S/P/B 4.4 3.5 - 5.1 MMOL/L 05/22/2021 7:12 PM [facility] Comment:SLIGHT HEMOLYSIS, RE SULT MAY BE AFFECTED. CHLORIDE S/P/B 103 100 - 108 MMOL/L 05/22/2021 7:12 PM [facility] CO2 31.4 21 - 32 MMOL/L 05/22/2021 7:12 PM [facility] CALCIUM S/P/B 9.8 8.5 - 10.1 MG/DL 05/22/2021 7:12 PM [facility] BILIRUBIN TOTAL S/P/B 0.4 0.2 - 1.2 MG/DL 05/22/2021 7:12 PM [facility] Comment: THIS ASSAY IS NOT RECOMMENDED FOR PATIENTS UNDERGOING TREATMENT WITH ELTROMBOPAG DUE TO THE POTENTIAL FOR FALSELY ELEVATED RESULTS. TOTAL PROTEIN S/P/B 8.6(H) 6.4 - 8.2 G/DL 05/22/2021 7:12 PM [facility] ALBUMIN S/P/B 3.3(L) 3.4 - 5.0 G/DL 05/22/2021 7:12 PM [facility] AST 30 15 - 37 U/L 05/22/2021 7:12 PM [facility] Comment:SLIGHT HEMOLYSIS, RE SULT MAY BE AFFECTED. ALT 25 14 - 55 U/L 05/22/2021 7:12 PM MOISTURE METER OPERATOR [facility] ALKALINE PHOSPHATASE S/P/B 78 50 - 136 U/L 05/22/2021 7:12 PM MOISTURE METER OPERATOR [facility] ANION GAP 3.6(L) 5 - 15 MMOL/L 05/22/2021 7:12 PM MOISTURE METER OPERATOR [facility] BUN CREATININE RATIO 21.2 6 - 26 05/22/2021 7:12 PM [facility] A/G RATIO 0.6(L) 1.0 - 2.0 RATIO 05/22/2021 7:12 PM [facility] EGFR NON-AFR. AMER. 64(L) >90 ML/MIN/1.7 3 M2 05/22/2021 7:12 PM [facility] EGFR AFR. AMER. 74(L) >90 ML/MIN/1.7 3 M2 05/22/2021 7:12 PM [facility] Comment: NOTE: eGFR is not calculated for patients <18 years of age. This is an estimated GFR (CKD EPI) and should not be used for calculating drug doses. 05/22/2021 6:23 PM MOISTURE METER OPERATOR us Tylor MCKEON LABORATORY Final Resu lt [facility] [address] [place] [address], [place] [phone] * (ABNORMAL) CBC W/DIFF AUTOMATED (05/22/2021 6:23 PM MOISTURE METER OPERATOR) WBC 11.1(H) 4.5 - 11.0 x10'3/uL 05/22/2021 6:36 PM MOISTURE METER OPERATOR [facility] RBC 4.78 4.20 - 5.40 x10'6/uL 05/22/2021 6:36 PM [facility] HGB 13.7 12.0 - 16.0 G/DL 05/22/2021 6:36 PM [facility] HCT 44.0 38.0 - 48.0 % 05/22/2021 6:36 PM [facility] MCV 92.1 81.0 - 99.0 FL 05/22/2021 6:36 PM [facility] MCH 28.7 27.0 - 31.0 PG 05/22/2021 6:36 PM [facility] MCHC 31.1(L) 32.0 - 36.0 G/DL 05/22/2021 6:36 PM [facility] RDW 14.0 11.5 - 14.5 % 05/22/2021 6:36 PM [facility] PLT 317 130 - 400 x10'3/uL 05/22/2021 6:36 PM [facility] MPV 9.7 9.3 - 12.2 FL 05/22/2021 6:36 PM [facility] DIFFERENTIAL TYPE AUTOMATED DIFFERENTIAL 05/22/2021 6:36 PM [facility] NEUTROPHILS % 56.5 % 05/22/2021 6:36 PM [facility] LYMPHOCYTES % 29.8 % 05/22/2021 6:36 PM [facility] MONOCYTES % 9.6 % 05/22/2021 6:36 PM [facility] EOSINOPHILS 3.2 % 05/22/2021 6:36 PM [facility] BASOPHILS 0.5 % 05/22/2021 6:36 PM [facility] IMMATURE GRANS % 0.4 % 05/22/19 6:36 PM [facility] ABS. NEUTROPHILS TOTAL 6.26 1.80 - 7.70 x10'3/uL 05/22/2021 6:36 PM MOISTURE METER OPERATOR [facility] ABS. LYMPHOCYTES 3.30 1.00 - 4.80 x10'3/uL 05/22/2021 6:36 PM MOISTURE METER OPERATOR [facility] ABS. MONOCYTES 1.06(H) 0.24 - 0.86 x10'3/uL 05/22/2021 6:36 PM MOISTURE METER OPERATOR [facility] ABS. EOSINOPHILS 0.35 0.04 - 0.36 x10'3/uL 05/22/2021 6:36 PM MOISTURE METER OPERATOR [facility] ABS. BASOPHILS 0.05 0.01 - 0.08 x10'3/uL 05/22/2021 6:36 PM MOISTURE METER OPERATOR [facility] ABS. IMMATURE GRANULOCYTES 0.04 0.00 - 0.49 x10'3/uL 05/22/2021 6:36 PM MOISTURE METER OPERATOR [facility] 05/22/2021 6:23 PM MOISTURE METER OPERATOR us Tylor MCKEON LABORATORY Final Resu lt [facility] [address] [place] [address], documented in this encounter Visit Diagnoses Diagnosis [...] in 24 hours. Given 05/22/2021 7:55 PM MOISTURE METER OPERATOR 650 mg sodium chloride 0.9% bolus infusion SOLN 500 mL 500 mL, Intravenous, Administer over 15 Minutes, Bolus (Once), 1 dose, On 05/22/21 at 1800 New Bag 05/22/2021 6:41 PM MOISTURE METER OPERATOR 500 mLs sodium chloride 0.9% bolus infusion SOLN 500 mL 500 mL, Intravenous, Administer over 15 Minutes, Bolus (Once), 1 dose, On 05/22/21 at 2130 New Bag 05/22/2021 9:45 PM MOISTURE METER OPERATOR 500 mLs documented in this encounter Active and Recently Administered Medications Times are shown in MOISTURE METER OPERATOR. Scheduled Medication Order 05/20/2021 05/21/2021 05/22/2021 acetaminophen [...] Rule Out 05/22/2021 05/22/2021 05/22/2021 10:12 PM MOISTURE METER OPERATOR documented as of this encounter Care Teams Supervisor Records Change Relationship Specialty Start Date End Date Gerardo Hoffman [facility] [address] [place] [address] PCP - General FAMILY PRACTICE 08/20/17 Meena Bansal MD [facility] [address] [place] [address] [place] Supervisor CARDIOVASCULAR DISEASE 04/24/16 documented as of this encounter
--- OUTSIDE RECORDS SUMMARY | 2024-04-26 07:01 | XMS_ITS | Encounter Summary ---
Author Organization [facility] Address [address] [place] [address]. [place] [address] [place] [address] Care Team Providers Care Pmp Certified Project Manager Name Role Phone Meena Bansal MD Unavailable [phone] Justen Gale MD Primary Care Provider Reason for Referral * Imaging (Routine) - Closed Specialty Diagnoses / Procedures Referred By Elyssa benavides Referred To Contact RADIOLOGY Diagnoses Pain in both lower extremities Procedures USV DIAZ DUPLEX LOW EXT YANNICK Leah Mackay NP Phone: tel: fax: Referral ID Status Reason Start Date Expiration Date Visits Re quested Visits Authorized [id number] Closed 05/31/2021 07/01/2022 1 1 ER STACKER Reason for Visit * Reason Comments Leg Pain Encounter Details Date Type Department Care Team (Late st Contact Info) Description 05/31/2021 7:47 PM LUMBER STACKER - 05/31/2021 8:27 PM LUMBER STACKER Emergency [facility] [place] [address] Leah Mackay NP [address] [address] Leg Pain Discharge Disposition: Home or Self [...] Sexual Orientation Straight 03/18/2018 3: 01 AM LUMBER STACKER COVID-19 Exposure Response Date Recorded In the last 10 days, have jenny u been in contact with someone who was confirmed or suspected to have Coronavirus/COVID-19? No / Unsure 05/31/2021 6:26 PM LUMBER STACKER documented as of this encounter Last Filed Vital Signs Vital Sign Reading Time Taken Comments Blood Pressure 152/102 05/31/2021 7:11 PM LUMBER STACKER Pulse 90 05/31/2021 7:11 PM LUMBER STACKER Temperature 36.4 ??C (97.5 ??F) 05/31/2021 7:11 PM CS T Respiratory Rate 18 05/31/2021 7:11 PM LUMBER STACKER Oxygen Saturation 98% 05/31/2021 7:11 PM LUMBER STACKER Inhaled Oxygen Concentration - - Weight 128.8 kg (283 lb 15.2 oz) 05/31/2021 7:11 PM LUMBER STACKER Height 154.9 cm (5' 1 ) 05/31/2021 7:11 PM LUMBER STACKER Body Mass Index 53.65 05/31/2021 7:11 PM LUMBER STACKER documented in this encounter Functional Status * [...] Leah Mackay NP - 05/31/2021 8:15 PM LUMBER STACKER Continue xarelto Return at 645 am tomorrow, 2.8 for lower extremity dopplers. Return IF YOU DEVELOP any chest pain or sob through the night ER STACKER documented in this encounter Medications at Time [...] needed (Cough and/or sore throat). 04/19/21 Jaswinder Gayatn MD diclofenac EC 75 MG tablet Take [...] Disposition: Discharge Follow-Up: Justen Gale MD [address] [place] [address] As needed LEAH MACKAY NP 05/31/2021 Note: This H+P / note was created with the aid of dictation software, thus there may be some word substitutions or errors. Leah Mackay NP 05/31/21 2233 Cosigned by Jayro Cervantes MD at 05/31/2021 11:16 PM LUMBER STACKER ER STACKER ER STACKER * Hugh Tobias RN - 05/31/2021 7:13 [...] thinner. Pt is AOx4 HUGH TOBIAS RN ER STACKER documented in this encounter Plan of Treatment Not on file documented as of this encounter Results * USV DIAZ DUPLEX LOW EXT YANNICK (06/01/2021 7:37 AM LUMBER STACKER) Anatomical Region Laterality Modality Extremity Vascular Ultraso und 06/01/2021 7:21 AM LUMBER STACKER Narrative 2021 5:29 PM LUMBER STACKER ?VENOUS DUPLEX IMAGING ?BILATERAL LOWER EXTREMITY ? VASCULAR LAB Pat.Name: ??MOHSEN MARQUES ?Pat.ID: ?[id number] ? St.Date: ?? 06/01/2021 ?Refer.: ??Justen Gale [...] VASCULAR LAB Pat.Name: LEONAMBER MOHSEN M Pat.ID: [id number] .Date: 06/01/2021 : Justen Gale Exam Time: [...] PM Jeremías Danielson M.D. us Leah Mackay ASSISTANT MANAGER AIRSIDE OPERATIONS US VASC Final Result documented in this encounter Visit Diagnoses Diagnosis Pain in both lower extremities- Primary Pain in both lower extremities documented in this encounter Care Teams Pmp Certified Project Manager Relationship Specialty Start Date End Date Justen Gale MD [address] [place] [address] PCP - General FAMILY PRACTICE 08/20/17 Meena Bansal MD [address] [facility] [address] [place] [address] [place] Security Compliance Specialist CARDIOVASCULAR DISEASE 04/24/16 documented as of this encounter
--- OUTSIDE RECORDS SUMMARY | 2024-04-26 07:01 | XMS_ITS | Encounter Summary ---
Author Organization [facility] Address [address] [place] [address]. [place] [address] [place] [address] Care Team Providers Care Antique Dealer Name Role Phone Meena Bansal MD Unavailable [phone] Justen Gale MD Primary Care Provider [phone] Encounter Details Date Type Department Care Team [...] Sexual Orientation Straight 03/18/2018 3: 01 AM TELECOMMUNICATIONS ENGINEER COVID-19 Exposure Response Date Recorded In the last month, have you been in contact with someone who was confirmed or suspected to have Coronavirus / COVID-19? Yes 05/15/2021 2:21 PM TELECOMMUNICATIONS ENGINEER documented as of this encounter Functional [...] on filedocumented in this encounter Care Teams Antique Dealer Relationship Specialty Start Date End Date Justen Gale MD [facility]. [address] [address] PCP - General FAMILY PRACTICE 08/20/17 Meena Bansal MD [facility]. [address] [address] [place] Knotting Machine Operator CARDIOVASCULAR DISEASE 04/24/16 documented as of this encounter
--- OUTSIDE RECORDS SUMMARY | 2024-04-26 07:01 | XMS_ITS | Encounter Summary ---
Author Organization [facility] Address [address] [place] [address]. [place] [address] [place] [address] Care Team Providers Care Crankshaft Straightener Name Role Phone Meena Bansal MD Unavailable [phone] Justen Gale MD Primary Care Provider [phone] Encounter Details Date Type Department Care Team [...] Sexual Orientation Straight 03/18/2018 3: 01 AM REGISTERED NURSE COVID-19 Exposure Response Date Recorded In the [...] Start Date End Date Justen Gale MD [id number] [place] [address] PCP - General FAMILY PRACTICE 08/20/17 Meena Bansal MD [facility]. [facility] [address] [place] [address] [place] Service Agent CARDIOVASCULAR DISEASE 04/24/16 documented as of this encounter
--- OUTSIDE RECORDS SUMMARY | 2024-04-26 07:01 | XMS_ITS | Encounter Summary ---
Author Organization [facility] Address [address] [place] [address]. [place] [address] [place] [address] Care Team Providers Care Real Estate Rental Agent Name Role Phone Meena Bansal MD Unavailable [phone] Justen Gale MD Primary Care Provider [phone] Reason for Referral * Imaging (Urgent) - Closed Specialty Diagnoses / Procedures Referred By Elyssa t Referred To Contact RADIOLOGY Procedures CTA CHEST Cris De Dios PA [address] [place] [id number] Phone: tel: fax: Referral ID Status Reason Start Date Expiration Date Visits Re quested Visits Authorized [id number] Closed 01/06/2021 02/05/2022 1 1 Reason for Visit * Reason Comments Shortness Of Breath Tremors Encounter Details Date Type Department Care Team (Late st Contact Info) Description 01/06/2021 5:34 PM CDT - 01/06/2021 9:10 PM CDT Emergency [facility] [place] [address] Shorty Alvarado MD [address] [address] Shortness Of Breath ; Tremors Discharge Disposition: [...] Sexual Orientation Straight 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 HISTORY: Evaluate [...] XR CHEST PORTABLE Final Result by User, [id number] (01/06 170) Examination: Chest x-ray 1 view [...] that these symptoms are not uncommon side effects. Hence, I suspect that she is correct in her assumption. We will plan for discharge home with symptomatic treatment. Clinical Impression Qak-delw-pgnlbuk adverse reaction to medication, initial encounter (Primary) [...] LINDA Barbour - 01/06/2021 3:53 PM CDT [place], [place] EMERGENCY DEPARTMENT ENCOUNTER Medical Screening Examination [...] 11 <54 ng/L 01/06/2021 7:45 PM CDT [facility] Comment: HIGH DOSES OF BIOTIN, TROPONIN-SPECIFIC AUTOANTIBODIES, AND ANTIBODY THERAPY CONTAINING HAMA MAY INTERFERE WITH THIS TEST RESULT. CORRELATION TO CLINICAL HISTORY AND PRESENTATION RECOMMENDED. 01/06/2021 6:57 PM CDT [facility] Final Result [facility] [address] [place] [address], [place] [phone] * ECG 12 lead (01/06/2021 6:53 PM CDT) 01/06/2021 6:53 PM CDT Narrative [facility] - 01/06/2021 8:05 PM CDT [facility] ? [address], [place] ? Test Date: ?2021-01-06 Pat Name: ? MOHSEN MARQUES ?Department: ? Room: ? 3 Gender: ? Female ? 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 AW : ?1955 ? Requested By: CRIS YOUNG Order Number: [id number] ? Reading MD: ?? Noe Scally ? Measurements Intervals ?[place] ? Rate: ? 93 ? P: ?50 SC: ? 126 ?QRS: ?0 QRSD: ? 92 ? T: ?29 QT: ? 340 ? QTc: ?424 ? Interpretive Statements SINUS RHYTHM Compared to ECG 01/06/2021 18:05:44 No significant changes Preliminary EKG interpretation by ED Physician No ischemic changes Sen Alvarado M.D. CRITICAL ALERT ISSUED ON 01-06-2021 19:03:32 Procedure Note Noe Cowan MD - 01/06/[address] [facility] 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 CRITICAL ALERT ISSUED ON 01-06-2021 19:03:32 us Cris [facility] ECG ORDERABLES Final Result [facility] * CULTURE URINE (01/06/2021 6:29 PM CDT) SPEC DESCRIPTION URINE CLEAN CATCH 01/06/2021 6:25 PM CDT [facility] SPECIAL REQUESTS NO SPECIAL REQUEST 01/06/2021 6:25 PM CDT [facility] CULTURE RESULT NO GROWTH 2 DAYS 01/09/2021 10:36 AM CDT [facility] URINE SPECIMEN OBTAINED BY CLEAN CATCH PROCEDURE / Unknown 01/06/2021 6:29 PM CDT 01/06/2021 6:35 PM CDT us Cris [facility] MICROBIOLOGY - GENERAL ORDER [place] Final Result [facility] [address] [place] [address], [place] [phone] * (ABNORMAL) URINALYSIS (01/06/2021 6:29 PM CDT) SPECIMEN TYPE URINE CLEAN CATCH 01/06/2021 6:25 PM CDT [facility] COLOR (U) LIGHT YELLOW 01/06/2021 6:45 PM CDT [facility] TRANSPARENCY CLEAR 01/06/2021 6:45 PM CDT [facility] SPECIFIC GRAVITY (U) 1.021 1.001 - 1.030 01/06/2021 6:45 PM CDT [facility] U PH 5.5 5.0 - 9.0 01/06/2021 6:45 PM CDT [facility] LEUKOCYTES (U) NEGATIVE NEGATIVE 01/06/2021 6:45 PM CDT [facility] NITRITES NEGATIVE NEGATIVE 01/06/2021 6:45 PM CDT [facility] PROTEIN (U) NEGATIVE <30 MG/DL 01/06/2021 6:45 PM CDT [facility] URINE GLUCOSE NORMAL NORMAL MG/DL 01/06/2021 6:45 PM CDT [facility] KETONES MG/DL (U) NEGATIVE NEGATIVE MG/DL 01/06/2021 6:45 PM CDT [facility] UROBILINOGEN NORMAL NORMAL MG/DL 01/06/2021 6:45 PM CDT [facility] BILIRUBIN (U) NEGATIVE NEGATIVE MG/DL 01/06/2021 6:45 PM CDT [facility] BLOOD (U) 1+(A) NEGATIVE 01/06/2021 6:45 PM CDT [facility] CULTURE & SENSITIVITY INDICATED? CULTURE IS NOT INDICATED 01/06/2021 6:45 PM CDT [facility] TRANSITIONAL EPI RARE /HPF 01/07/20 6:45 PM CDT [facility] MUCUS RARE /LPF 01/06/2021 6:45 PM CDT [facility] WBC/HPF 3 <6 /HPF 01/06/2021 6:45 PM CDT [facility] RBC/HPF 6(H) <6 /HPF 01/06/2021 6:45 PM CDT [facility] SQUAMOUS EPITHELIALS RARE /HPF 01/06/2021 6:45 PM CDT [facility] URINE SPECIMEN OBTAINED BY CLEAN CATCH PROCEDURE / Unknown 01/06/2021 6:29 PM CDT us Cris [facility] URINE ORDERABLES Final Resul t [facility] [address] [place] [address], [place] [phone] * ECG 12-Lead (01/06/2021 6:05 PM CDT) 01/06/2021 6:05 PM CDT Narrative [facility] - 01/06/2021 8:07 PM CDT ?[facility] ? [address] [place] ? Test Date: ?2021-01-06 Pat Name: ? MOHSEN MARQUES ?Department: ? Room: ? 3 Gender: ? Female ? 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 RH : ?1955 ? Requested By: CRIS DE DIOS Order Number: [id number] ? Reading MD: ?? Noe Cowan ? Measurements Intervals ?[place] ? Rate: ? 97 ? P: ?42 SC: ? 126 ?QRS: ?-2 QRSD: ? 92 ? T: ?28 QT: ? 330 ? QTc: ?421 ? Interpretive Statements SINUS RHYTHM Compared to ECG 09/20/2020 23:47:35 ST (T wave) deviation no longer present No ischemic changes Preliminary EKG interpretation by ED Physician Justen Yoon PA-C CRITICAL ALERT ISSUED ON 01-06-2021 18:09:28 Procedure Note Noe Cowan MD - 01/06/[address] 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: : 1955 Requested By: CRIS DE DIOS Order Number: [id number] Felipe MD: Noe Cowan Measurements Intervals [place] Rate: 97 P: 42 SC: 126 QRS: -2 QRSD: 92 T: 28 QT: 330 QTc: 421 Interpretive Statements SINUS RHYTHM Compared to ECG 09/20/2020 23:47:35 ST (T wave) deviation no longer present No ischemic changes Preliminary EKG interpretation by ED Physician Justen Yoon PA-C CRITICAL ALERT ISSUED ON 01-06-2021 18:09:28 us Cris [facility] ECG ORDERABLES Final Result [facility] * LACTIC ACID (01/06/2021 5:52 PM CDT) LACTIC ACID VENOUS 0.7 0.4 - 2.0 MMOL/L 01/06/2021 6:42 PM CDT [facility] 01/06/2021 5:52 PM CDT us [facility] Final Result [facility] [address] [place] [address], * XR CHEST PORTABLE (01/06/2021 4:39 PM [...] 64 <125 PG/ML 01/06/2021 6:58 PM CDT [facility] Comment: CUT POINTS ESTABLISHED BY [...] PM CDT [facility] Final Result [facility] [address] [place] [address], * TROPONIN, QUANT (01/06/2021 4:01 PM CDT) TROPONIN I HIGH SENSITIVITY 10 <54 ng/L 01/06/2021 6:58 PM CDT [facility] Comment: HIGH DOSES OF BIOTIN, TROPONIN-SPECIFIC AUTOANTIBODIES, AND ANTIBODY THERAPY CONTAINING HAMA MAY INTERFERE WITH THIS TEST RESULT. CORRELATION TO CLINICAL HISTORY AND PRESENTATION RECOMMENDED. 01/06/2021 4:01 PM CDT [facility] Final Result Performing Organization Address City/[facility]/ZIP Co de Phone Number [facility] [address] [place] [address], * MAGNESIUM (01/06/2021 4:01 PM CDT) MAGNESIUM 1.9 1.8 - 2.4 MG/DL 01/06/2021 6:58 PM CDT [facility] Comment:SLIGHT HEMOLYSIS, RE SULT MAY BE AFFECTED. 01/06/2021 4:01 PM CDT [facility]i [facility] Final Result [facility] [address] [place] [address], * PARTIAL THROMBOPLASTIN TIME,PTT (01/06/2021 4:01 PM CDT) PTT 33.8 25.1 - 36.5 SEC 01/06/2021 6:51 PM CDT [facility] 01/06/2021 4:01 PM CDT [facility] Final Result [facility] [address] [place] [address], [place] [phone] * (ABNORMAL) PROTIME/INR, VENOUS (01/06/2021 4:01 PM CDT) PROTIME 20.1(H) 10.2 - 12.9 SEC 01/06/2021 6:51 PM CDT [facility] INR 1.7 01/06/2021 6:51 PM CDT [facility] Comment: Recommended INR Therapeutic Goals: ??2.0-3.0 Routine Therapy ??2.5-3.5 Mechanical Prosthetic Valves (High Risk) 01/06/2021 4:01 PM CDT [facility] Final Result Performing Organization Address City/[facility]/ZIP Co de Phone Number [facility] [address] [place] [address], * CULTURE, BACTERIA, BLOOD (01/06/2021 4:01 PM CDT) SPEC DESCRIPTION BLOOD 01/06/2021 4:01 PM CDT [facility] SPECIAL REQUESTS NO SPECIAL REQUEST 01/06/2021 4:01 PM CDT [facility] CULTURE RESULT NO GROWTH 5 DAYS 01/11/2021 10:51 AM CDT [facility] BLOOD SPECIMEN OBTAINED FOR BLOOD CULTURE / Unknown 01/06/2021 4:01 PM CDT 01/06/2021 6:24 PM CDT Cris [facility] MICROBIOLOGY - GENERAL ORDER [place]O Final Result Performing Organization Address City/[facility]/ZIP Co de Phone Number [facility] [address] [place] [address], * CULTURE, BACTERIA, BLOOD (01/06/2021 4:01 PM CDT) SPEC DESCRIPTION BLOOD 01/06/2021 4:01 PM CDT [facility] SPECIAL REQUESTS NO SPECIAL REQUEST 01/06/2021 4:01 PM CDT [facility] CULTURE RESULT NO GROWTH 5 DAYS 01/11/2021 10:51 AM CDT [facility] BLOOD SPECIMEN OBTAINED FOR BLOOD CULTURE / Unknown 01/06/2021 4:01 PM CDT 01/06/2021 6:24 PM CDT Cris [facility] MICROBIOLOGY - GENERAL ORDER [place]O Final Result Performing Organization Address City/[facility] Co de Phone Number [facility] [address] [place] [address], * (ABNORMAL) COMPREHENSIVE METABOLIC PANEL (01/06/2021 4:01 PM CDT) GLUCOSE 111(H) 70 - 99 MG/DL 01/06/2021 6:58 PM CDT [facility] BUN 14 7 - 18 MG/DL 01/06/2021 6:58 PM CDT [facility] CREATININE S/P/B 0.86 0.55 - 1.02 MG/DL 01/06/2021 6:58 PM CDT [facility] SODIUM S/P/B 136 136 - 145 MMOL/L 01/06/2021 6:58 PM CDT [facility] POTASSIUM S/P/B 4.7 3.5 - 5.1 MMOL/L 01/06/2021 6:58 PM CDT [facility] Comment:SLIGHT HEMOLYSIS, RE SULT MAY BE AFFECTED. CHLORIDE S/P/B 103 100 - 108 MMOL/L 01/06/2021 6:58 PM CDT [facility] CO2 27.3 21 - 32 MMOL/L 01/06/2021 6:58 PM CDT [facility] CALCIUM S/P/B 9.7 8.5 - 10.1 MG/DL 01/06/2021 6:58 PM CDT [facility] BILIRUBIN TOTAL S/P/B 0.6 0.2 - 1.2 MG/DL 01/06/2021 6:58 PM CDT [facility] Comment: THIS ASSAY IS NOT RECOMMENDED FOR PATIENTS UNDERGOING TREATMENT WITH ELTROMBOPAG DUE TO THE POTENTIAL FOR FALSELY ELEVATED RESULTS. TOTAL PROTEIN S/P/B 8.7(H) 6.4 - 8.2 G/DL 01/06/2021 6:58 PM T [facility] ALBUMIN S/P/B 3.2(L) 3.4 - 5.0 G/DL 01/06/2021 6:58 PM CDT [facility] AST 21 15 - 37 U/L 01/06/2021 6:58 PM T [facility] Comment:SLIGHT HEMOLYSIS, RE SULT MAY BE AFFECTED. ALT 28 14 - 55 U/L 01/06/2021 6:58 PM CDT [facility] ALKALINE PHOSPHATASE S/P/B 97 50 - 136 U/L 01/06/2021 6:58 PM CDT [facility] ANION GAP 5.7 5 - 15 MMOL/L 01/06/2021 6:58 PM T [facility] BUN CREATININE RATIO 16.3 6 - 26 01/06/2021 6:58 PM CDT [facility] A/G RATIO 0.6(L) 1.0 - 2.0 RATIO 01/06/2021 6:58 PM CDT [facility] EGFR NON-AFR. AMER. 71(L) >90 ML/MIN/1.7 3 M2 01/06/2021 6:58 PM CDT [facility] EGFR AFR. AMER. 83(L) >90 ML/MIN/1.7 3 M2 01/06/2021 6:58 PM CDT [facility] Comment: NOTE: eGFR is not calculated for patients <18 years of age. This is an estimated GFR (CKD EPI) and should not be used for calculating drug doses. 01/06/2021 4:01 PM CDT us [facility] Final Result [facility] [address] [place] [id number], * (ABNORMAL) CBC W/DIFF AUTOMATED (01/06/2021 4:01 PM CDT) WBC 11.6(H) 4.5 - 11.0 x10'3/uL 01/06/2021 6:31 PM CDT [facility] RBC 4.88 4.20 - 5.40 x10'6/uL 01/06/2021 6:31 PM CDT [facility] HGB 14.1 12.0 - 16.0 G/DL 01/06/2021 6:31 PM CDT [facility] HCT 45.1 38.0 - 48.0 % 01/06/2021 6:31 PM CDT [facility] MCV 92.4 81.0 - 99.0 FL 01/06/2021 6:31 PM CDT [facility] MCH 28.9 27.0 - 31.0 PG 01/06/2021 6:31 PM CDT [facility] MCHC 31.3(L) 32.0 - 36.0 G/DL 01/06/2021 6:31 PM CDT [facility] RDW 14.0 11.5 - 14.5 % 01/06/2021 6:31 PM CDT [facility] PLT 301 130 - 400 x10'3/uL 01/06/2021 6:31 PM CDT [facility] MPV 9.8 9.3 - 12.2 FL 01/06/2021 6:31 PM CDT [facility] DIFFERENTIAL TYPE AUTOMATED DIFFERENTIAL 01/06/2021 6:31 PM CDT [facility] NEUTROPHILS % 81.4 % 01/06/2021 6:31 PM CDT [facility] LYMPHOCYTES % 11.5 % 01/06/2021 6:31 PM CDT [facility] MONOCYTES % 5.3 % 01/06/2021 6:31 PM CDT [facility] EOSINOPHILS 1.2 % 01/06/2021 6:31 PM CDT [facility] BASOPHILS 0.3 % 01/06/2021 6:31 PM CDT [facility] IMMATURE GRANS % 0.3 % 01/07/20 6:31 PM CDT [facility] ABS. NEUTROPHILS TOTAL 9.44(H) 1.80 - 7.70 x10'3/uL 01/06/2021 6:31 PM CDT [facility] ABS. LYMPHOCYTES 1.33 1.00 - 4.80 x10'3/uL 01/06/2021 6:31 PM CDT [facility] ABS. MONOCYTES 0.61 0.24 - 0.86 x10'3/uL 01/06/2021 6:31 PM CDT [facility] ABS. EOSINOPHILS 0.14 0.04 - 0.36 x10'3/uL 01/06/2021 6:31 PM CDT [facility] ABS. BASOPHILS 0.03 0.01 - 0.08 x10'3/uL 01/06/2021 6:31 PM CDT [facility] ABS. IMMATURE GRANULOCYTES 0.04 0.00 - 0.49 x10'3/uL 01/06/2021 6:31 PM CDT [facility] 01/06/2021 4:01 PM CDT [facility] Final Result [facility] [address] [place] [address], documented in this encounter Visit Diagnoses Diagnosis Hig-lflu-ypyjbfc adverse reaction to medication, initial encounter- Primary [...] RTR) documented in this encounter Care Teams Real Estate Rental Agent Relationship Specialty Start Date End Date Justen Gale MD [id number] [place] [address] PCP - General FAMILY PRACTICE 08/20/17 Meena Bansal MD [address] [facility] [address] [facility] [address] [place] [address] José Luis Title Officer CARDIOVASCULAR DISEASE 04/24/16 documented as of this encounter
--- OUTSIDE RECORDS SUMMARY | 2024-04-26 07:01 | XMS_ITS | Encounter Summary ---
Author Organization [facility] Address [address] [place] [address]. 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 [address] [place] [address] [place] [employer] CARDIOVASCULAR DISEASE 04/24/16 documented as of this encounter
--- OUTSIDE RECORDS SUMMARY | 2024-04-26 07:01 | XMS_ITS | Encounter Summary ---
Author Organization [facility] Address [address] [place] [address]. [place] [address] [place] [address] Care Team Providers Care Rigging Slinger Name Role Phone Meena Bansal MD Unavailable [phone] Justen Gale MD Primary Care Provider [phone] Reason for Visit * Reason Comments Shortness Of Breath Encounter Details Date Type Department Care Team ([facility] st Contact Info) Description 05/15/2021 2:39 PM OPERATING SYSTEMS SPECIALIST - 05/15/2021 6:44 PM OPERATING SYSTEMS SPECIALIST [facility] Emergency Room [place], [place] [address] Shorty Alvarado MD [address] [place] [address] [id number] Shortness Of Breath Discharge Disposition: Home or [...] Sexual Orientation Straight 03/18/2018 3: 01 AM OPERATING SYSTEMS SPECIALIST COVID-19 Exposure Response Date Recorded In the last month, have you been in contact with someone who was confirmed or suspected to have Coronavirus / COVID-19? Yes 05/15/2021 2:21 PM OPERATING SYSTEMS SPECIALIST documented as of this encounter Last Filed Vital Signs Vital Sign Reading Time Taken Comments Blood Pressure 142/78 05/15/2021 5:00 PM OPERATING SYSTEMS SPECIALIST Pulse 92 05/15/2021 5:00 PM OPERATING SYSTEMS SPECIALIST Temperature 36.3 ??C (97.4 ??F) 05/15/2021 2:26 PM CS T Respiratory Rate 27 05/15/2021 5:00 PM OPERATING SYSTEMS SPECIALIST Oxygen Saturation 99% 05/15/2021 5:00 PM OPERATING SYSTEMS SPECIALIST Inhaled Oxygen Concentration - - Weight 128.8 kg (284 lb) 05/15/2021 2:26 PM OPERATING SYSTEMS SPECIALIST Height 154.9 cm (5' 1 ) 05/15/2021 2:26 PM OPERATING SYSTEMS SPECIALIST Body Mass Index 53.66 05/15/2021 2:26 PM OPERATING SYSTEMS SPECIALIST documented in this encounter Functional Status * [...] Author Status No 09/06/2020 12:55 AM BRENDANT Della Tejada RN Active * Because of [...] * Shortness of Breath (Dyspnea) Discharge Instructions (Barbadian) * Dehydration Discharge Instructions, Adult (Barbadian) documented in this encounter Medications at [...] Patient verbalized understanding of the discharge instructions. ATING SYSTEMS SPECIALIST * Shorty Alvarado MD - 05/15/2021 3:32 [...] Narrative [facility] Test Date: 2021-05-15 Pat Name: MOHSEN MARQUES Department: Room: [facility] Gender: Female Director Of Grants: ANKIT : 1955 Requested By: JOANN CASILLAS Order Number: [id number] Reading MD: Ramon Byrd Measurements Intervals [place] Rate: 93 P: 2 [place]: 154 QRS: -11 QRSD: 94 T: 49 QT: 347 QTc: 432 Interpretive Statements SINUS RHYTHM Compared to ECG 04/19/2021 20:23:34 No significant changes ATING SYSTEMS SPECIALIST LABORATORY STUDIES: Results for orders placed or [...] XR CHEST PORTABLE Final Result by User, [id number] (05/15 1511) Examination: Chest 1 view portable [...] Alvarado MD 05/16/21828 Shorty Alvarado MD 05/16/21828 ATING SYSTEMS SPECIALIST ATING SYSTEMS SPECIALIST * HUMAIRA Holder - 05/15/2021 2:35 PM CST [place], [place] EMERGENCY DEPARTMENT ENCOUNTER Medical Screening Examination [...] Shorty Alvarado MD at 05/15/2021 3:08 PM OPERATING SYSTEMS SPECIALIST ATING SYSTEMS SPECIALIST ATING SYSTEMS SPECIALIST * Opal Cantrell RN - 05/15/2021 2:30 PM CST Pt reports worsening SOB since having COVID on 04/19, received her booster on 05/03. Now having painunder right ribs, on Xarelto for hx of DVT/PE. ATING SYSTEMS SPECIALIST documented in this encounter Plan of Treatment Not on file documented as of this encounter Procedures Procedure Name Priority Date/Time Associated Diagnosis Comments XR CHEST PORTABLE STAT 05/15/2021 3:1 0 PM OPERATING SYSTEMS SPECIALIST PRO-BRAIN NATRIURETIC PEPTIDE STAT 05/15/2021 3:06 PM OPERATING SYSTEMS SPECIALIST COMPREHENSIVE METABOLIC PANEL STAT 05/15/2021 3:06 PM OPERATING SYSTEMS SPECIALIST CBC W/DIFF AUTOMATED STAT 05/15/2021 3:06 PM OPERATING SYSTEMS SPECIALIST TROPONIN, QUANT STAT 05/15/2021 3:06 PM OPERATING SYSTEMS SPECIALIST ECG 12-LEAD Routine 05/15/2021 2:52 PM OPERATING SYSTEMS SPECIALIST documented in this encounter Results * XR CHEST PORTABLE (05/15/2021 3:10 PM OPERATING SYSTEMS SPECIALIST) Anatomical Region Laterality Modality Chest Radiographic Lizeth ging 05/15/2021 3:10 PM OPERATING SYSTEMS SPECIALIST Impressions 05/15/2021 3:11 PM OPERATING SYSTEMS SPECIALIST Impression: No acute infiltrate. ??Pulmonary vasculature upper limits of normal. Referred By: ?? Interpreted By: Osiel Vergara MD, 05/15/2021 3:10 PM Narrative 05/15/2021 3:11 PM OPERATING SYSTEMS SPECIALIST Examination: Chest 1 view portable History: Shortness [...] Vergara MD, 05/15/2021 3:10 PM Joann Casillas [facility] Final Resul t * PRO-BRAIN NATRIURETIC PEPTIDE (05/15/2021 3:06 PM OPERATING SYSTEMS SPECIALIST) PRO-B TYPE NATRIURETIC PEPTIDE 39 <125 PG/ML 05/15/2021 3:42 [address]S [address] [facility] Comment: CUT POINTS ESTABLISHED BY INTERNATIONAL [...] 72% FOR ACUTE CHF. 05/15/2021 3:06 PM OPERATING SYSTEMS SPECIALIST Joann Casillas [facility] Final Resul t [facility] [address] [place] [address], [place] [phone] * TROPONIN, QUANT (05/15/2021 3:06 PM OPERATING SYSTEMS SPECIALIST) Pathologist [facility] TROPONIN I HIGH SENSITIVITY 7 <54 ng/L 05/15/2021 3:[address] OPER[address]S SPECIAL[address] [facility] Comment: HIGH DOSES OF BIOTIN, TROPONIN-SPECIFIC AUTOANTIBODIES, AND ANTIBODY THERAPY CONTAINING HAMA MAY INTERFERE WITH THIS TEST RESULT. CORRELATION TO CLINICAL HISTORY AND PRESENTATION RECOMMENDED. 05/15/2021 3:06 PM OPERATING SYSTEMS SPECIALIST Joann Casillas [facility] Final Resul t [facility] [address] [place] [id number], * (ABNORMAL) COMPREHENSIVE METABOLIC PANEL (05/15/2021 3:06 PM OPERATING SYSTEMS SPECIALIST) [facility] GLUCOSE 171(H) 70 - 99 MG/DL 05/15/2021 3:[address]PER[address]S [address] [facility] BUN 18 7 - 18 MG/DL 05/15/2021 3:42 PM [facility] CREATININE S/P/B 0.78 0.55 - 1.02 MG/DL 05/15/2021 3:[address]PER[address]S [address] [facility] SODIUM S/P/B 136 136 - 145 MMOL/L 05/15/2021 3:42 [address] OPERATING SYSTEMS SPECIAL[address] [facility] POTASSIUM S/P/B 4.0 3.5 - 5.1 MMOL/L 05/15/2021 3:42 PM [facility] CHLORIDE S/P/B 104 100 - 108 MMOL/L 05/15/2021 3:42 [address] OPERATING SYSTEMS SPECIALIST [facility] CO2 29.8 21 - 32 MMOL/L 05/15/2021 3:42 PM [facility] CALCIUM S/P/B 9.7 8.5 - 10.1 MG/DL 05/15/2021 3:42 PM [facility] BILIRUBIN TOTAL S/P/B 0.4 0.2 - 1.2 MG/DL 05/15/2021 3:42 PM [facility] Comment: THIS ASSAY IS NOT RECOMMENDED FOR PATIENTS UNDERGOING TREATMENT WITH ELTROMBOPAG DUE TO THE POTENTIAL FOR FALSELY ELEVATED RESULTS. TOTAL PROTEIN S/P/B 8.8(H) 6.4 - 8.2 G/DL 05/15/2021 3:42 PM [facility] ALBUMIN S/P/B 3.3(L) 3.4 - 5.0 G/DL 05/15/2021 3:42 PM [facility] AST 20 15 - 37 U/L 05/15/2021 3:42 PM [facility] ALT 25 14 - 55 U/L 05/15/2021 3:42 PM [facility] ALKALINE PHOSPHATASE S/P/B 78 50 - 136 U/L 05/15/2021 3:42 PM [facility] ANION GAP 2.2(L) 5 - 15 MMOL/L 05/15/2021 3:42 PM [facility] BUN CREATININE RATIO 23.1 6 - 26 05/15/2021 3:42 PM [facility] A/G RATIO 0.6(L) 1.0 - 2.0 RATIO 05/15/2021 3:42 PM [facility] EGFR NON-AFR. AMER. 80(L) >90 ML/MIN/1.7 3 M2 05/15/2021 3:42 PM [facility] EGFR AFR. AMER. >90 >90 ML/MIN/1.7 3 M2 05/15/2021 3:42 PM OPERATING SYSTEMS SPECIALIST [facility] Comment: NOTE: eGFR is not calculated for patients <18 years of age. This is an estimated GFR (CKD EPI) and should not be used for calculating drug doses. 05/15/2021 3:06 PM OPERATING SYSTEMS SPECIALIST Joann Casillas [facility] Final Resul t [facility] [address] [place] [address], [place] [phone] * (ABNORMAL) CBC W/DIFF AUTOMATED (05/15/2021 3:06 PM OPERATING SYSTEMS SPECIALIST) WBC 10.5 4.5 - 11.0 x10'3/uL 05/15/2021 3:[address] OPER[address]S [address] [facility] RBC 4.91 4.20 - 5.40 x10'6/uL 05/15/2021 3:20 [address] OPERATING SYSTEMS [address] [facility] HGB 14.0 12.0 - 16.0 G/DL 05/15/2021 3:20 PM [facility] HCT 44.6 38.0 - 48.0 % 05/15/2021 3:20 PM [facility] MCV 90.8 81.0 - 99.0 FL 05/15/2021 3:[address]PER[address]S [address] [facility] MCH 28.5 27.0 - 31.0 PG 05/15/2021 3:[address] OPERATING SYSTEMS [address] [facility] MCHC 31.4(L) 32.0 - 36.0 G/DL 05/15/2021 3:20 PM [facility] RDW 13.8 11.5 - 14.5 % 05/15/2021 3:20 PM [facility] PLT 299 130 - 400 x10'3/uL 05/15/2021 3:20 PM [facility] MPV 9.8 9.3 - 12.2 FL 05/15/2021 3:20 PM [facility] DIFFERENTIAL TYPE AUTOMATED DIFFERENTIAL 05/15/2021 3:20 PM [facility] NEUTROPHILS % 64.5 % 05/15/2021 3:20 PM [facility] LYMPHOCYTES % 24.8 % 05/15/2021 3:20 PM [facility] MONOCYTES % 7.2 % 05/15/2021 3:20 PM [facility] EOSINOPHILS 2.7 % 05/15/2021 3:20 PM [facility] BASOPHILS 0.4 % 05/15/2021 3:20 PM [facility] IMMATURE GRANS % 0.4 % 05/15/19 3:20 PM [facility] ABS. NEUTROPHILS TOTAL 6.76 1.80 - 7.70 x10'3/uL 05/15/2021 3:20 PM [facility] ABS. LYMPHOCYTES 2.60 1.00 - 4.80 x10'3/uL 05/15/2021 3:20 PM [facility] ABS. MONOCYTES 0.75 0.24 - 0.86 x10'3/uL 05/15/2021 3:20 PM [facility] ABS. EOSINOPHILS 0.28 0.04 - 0.36 x10'3/uL 05/15/2021 3:20 PM [facility] ABS. BASOPHILS 0.04 0.01 - 0.08 x10'3/uL 05/15/2021 3:20 PM [facility] ABS. IMMATURE GRANULOCYTES 0.04 0.00 - 0.49 x10'3/uL 05/15/2021 3:20 [address] OPER[address]S SPECIALIST [facility] 05/15/2021 3:06 PM OPERATING SYSTEMS SPECIALIST us Joann Casillas [facility] Final Resul t [facility] [address] [place] [address], * ECG 12 lead (05/15/2021 2:52 PM OPERATING SYSTEMS SPECIALIST) 05/15/2021 2:52 PM OPERATING SYSTEMS SPECIALIST Narrative [facility] - 05/15/2021 4:15 PM OPERATING SYSTEMS SPECIALIST ?[facility] [place] ? [address] [facility], [facility] ? Test Date: ?2021-05-15 Pat Name: ? MOHSEN MARQUES ?Department: ? Room: ? EXAM10 Gender: ? Female ? Director Of Grants: ?? : ?1955 ? Requested By: JOANN CASILLAS Order Number: [id number] ? Reading : ?? Ramon Byrd ? Measurements Intervals ?[place] ? Rate: ? 93 ? P: ?2 [place]: ? 154 ?QRS: ?-11 QRSD: ? 94 ? T: ?49 QT: ? 347 ? QTc: ?432 ? Interpretive Statements SINUS RHYTHM Compared to ECG 04/19/2021 20:23:34 No significant changes ATING SYSTEMS SPECIALIST Procedure Note Ramon Byrd MD - 05/15/2021 [facility] [place] [address] [facility] Juan Ramon [place] Test Date: 2021-05-15 Pat Name: MOHSEN MARQUES Department: Room: [facility] Gender: Female Director Of Grants: : 1955 Requested By: JOANN CASILLAS Order Number: [id number] Reading MD: Ramon Byrd Measurements Intervals [place] Rate: 93 P: 2 [place]: 154 QRS: -11 QRSD: 94 T: 49 QT: 347 QTc: 432 Interpretive Statements SINUS RHYTHM Compared to ECG 04/19/2021 20:23:34 No significant changes ATING SYSTEMS SPECIALIST Joann Casillas SWITCH MAKER ECG ORDERABLES Final Resul t [facility] documented in this encounter Visit [...] at 1615 New Bag 05/15/2021 4:11 PM OPERATING SYSTEMS SPECIALIST 1,000 mLs documented in this encounter Active and Recently Administered Medications Times are shown in OPERATING SYSTEMS SPECIALIST. Scheduled Medication Order 05/13/2021 05/14/2021 05/15/2021 sodium chloride 0.9% bolus infusion SOLN 1,000 mL (COMPLETED) 1,000 mL, Intravenous, Administer over 15 Minutes, Once, 1 dose, On 05/15/21 at 1615 1611 (New Bag - Prov ider: Ricarda Doshi RN)1815 (Infusion Stop Time - Provider: Ricarda Doshi RN) documented in this encounter Care Teams Rigging Slinger Relationship Specialty Start Date End Date Justen Gale MD [address] [place] [place] [address] PCP - General FAMILY PRACTICE 08/20/17 Meena Bansal MD [address] [place] [address] [place] [address] José Luis Cupola Man CARDIOVASCULAR DISEASE 04/24/16 documented as of this encounter
--- OUTSIDE RECORDS SUMMARY | 2024-04-26 07:01 | XMS_ITS | Encounter Summary ---
Author Organization [facility] Address [address] [place] [address]. [place] [address] [place] [address] Care Team Providers Care Artificial Flowers Supervisor Name Role Phone Meena Bansal MD Unavailable [phone] Justen Gale MD Primary Care Provider [phone] Encounter Details Date Type Department Care Team [...] Sexual Orientation Straight 03/18/2018 3: 01 AM MS SQL DEVELOPER COVID-19 Exposure Response Date Recorded In the last month, have you been in contact with someone who was confirmed or suspected to have Coronavirus / COVID-19? No / Unsure 03/03/2021 2:01 AM MS SQL DEVELOPER documented as of this encounter Functional Status [...] filedocumented in this encounter Care Teams Artificial Flowers Supervisor Relationship Specialty Start Date End Date Justen Gale MD [id number] [place] [address] PCP - General FAMILY PRACTICE 08/20/17 Meena Bansal MD [facility] [address] [place] [address] José Luis [address]man CARDIOVASCULAR DISEASE 04/24/16 documented as of this encounter
--- OUTSIDE RECORDS SUMMARY | 2024-04-26 07:01 | XMS_ITS | Encounter Summary ---
Author Organization [facility] Address [address] [place] [address]. [place] [address] [place] [address] Care Team Providers Care Spanish Teacher Name Role Phone Meena Bansal MD Unavailable [phone] Justen Gale MD Primary Care Provider [phone] Encounter Details Date Type Department Care Team [...] Sexual Orientation Straight 03/18/2018 3: 01 AM POSTDOCTORAL RESEARCH ASSOCIATE COVID-19 Exposure Response Date Recorded In [...] on filedocumented in this encounter Care Teams Spanish Teacher Relationship Specialty Start Date End Date Justen Gale MD [facility]. [address] [address] PCP - General FAMILY PRACTICE 08/20/17 Meena Bansal MD [facility]. [facility] [address] [place] [address] [place] Reflow Operator CARDIOVASCULAR DISEASE 04/24/16 documented as of this encounter
--- OUTSIDE RECORDS SUMMARY | 2024-04-26 07:01 | XMS_ITS | Encounter Summary ---
Author Organization [facility] Address [address] [place] [address]. [place] [address] [place] [address] Care Team Providers Care Testing Projects Administrator Name Role Phone Meena Bansal MD Unavailable [phone] Justen Gale MD Primary Care Provider [phone] Reason for Referral * Imaging (Routine) - Closed Specialty Diagnoses / Procedures Referred By Contac t Referred To Contact RADIOLOGY Diagnoses Lumbar radiculopathy Procedures MRI THOR SPINE WO Joan Proctor NP [address] [facility], [address] [address] Phone: tel: fax: [place] [address] Phone: tel: Referral ID Status Reason Start Date Expiration Date Visits Re quested Visits Authorized [id number] Closed 11/10/2020 12/10/2021 1 1 Reason for Visit * Imaging (Routine) - Closed Specialty Diagnoses / Procedures Referred By Contac t Referred To Contact RADIOLOGY Diagnoses Lumbar radiculopathy Procedures MRI THOR SPINE WO Joan Proctor NP [address] [facility], [address] [address] Phone: tel: fax: [facility] [place] [address] Phone: tel: Referral ID Status Reason Start Date Expiration Date Visits Re quested Visits Authorized [id number] Closed 11/10/2020 12/10/2021 1 1 Encounter Details Date Type Department Care Team (Latest Contact Info) Description 12/01/2020 9:37 AM CDT - 12/01/2020 11:59 PM CDT Hospital Encounter [facility] [address] [place] [address] Joan Colon, CURTIS [address] [facility] [address] [place] [address] Discharge Disposition: Home or Self Care (Routine [...] Sexual Orientation Straight 03/18/2018 3: 01 AM LIEUTENANT FIREFIGHTER COVID-19 Exposure Response Date Recorded In the [...] soft tissue swelling. The conus medullaris terminates [id number], normal. There is a normal morphology conus [...] Gallegos MD, 12/01/2020 7:45 PM Joan Colon TRACK WELDER MRI Final Result documented in this encounter Visit Diagnoses Diagnosis Lumbar radiculopathy Thoracic or lumbosacral neuritis or radiculitis, unspecified documented in this encounter Care Teams Testing Projects Administrator Relationship Specialty Start Date End Date Justen Gale MD [facility]. [facility] [address] [place] [address] PCP - General FAMILY PRACTICE 08/20/17 Meena Bansal MD [facility]. [address] [place] [address] José Luis Research Project Coordinator CARDIOVASCULAR DISEASE 04/24/16 documented as of this encounter
--- OUTSIDE RECORDS SUMMARY | 2024-04-26 07:02 | XMS_ITS | Encounter Summary ---
Author Organization [facility] Address [address] [place] [address]. [place] [address] [place] [address] Care Team Providers Care Ironworker Wire Fence Erector Name Role Phone Meena Bansal MD Unavailable [phone] Justen Gale MD Primary Care Provider [phone] Reason for Visit * Auth/Cert Specialty Diagnoses / Procedures Referred By Contac t Referred To Contact Diagnoses Abdominal pain Abdominal pain Referral ID Status Reason Start Date Expiration Date Visits Re quested Visits Authorized [id number] 1 1 Encounter Details Date Type Department Care Team (Late st Contact Info) Description 09/10/2018 6:08 PM CDT Anesthesia Event [facility] [address] [facility] [place] [address] Nehemias Brown MD [address] [id number] Adriana Arias CRNA [address] [facility] [address] [address] Anesthesia Record Procedure Summary Procedure Name Responsible Anesthesiologist Anesthesia Start Time Anesthesia Stop Time EGD Nehemias Brown MD 09/10/18 1808 09/10/18 18 34 Events Date Time Event Comment 09/10/2018 1808 AN BILLING CONTROL CLERK Prepped 1808 An Start Patient ID and [...] Sexual Orientation Straight 03/18/2018 3: 01 AM BLANKBOOK STITCHING MACHINE OPERATOR documented as of this encounter [...] clot in vein No date: Breast cancer ([facility]/HCC) No date: Cancer ([facility]) No date: Diabetes mellitus ([facility]) No date: Disease of thyroid [...] pos. 02/201808/31/2018 08/31/2018 07/02/19 21 2:54 AM BLANKBOOK STITCHING MACHINE OPERATOR documented as of this encounter Care Teams Ironworker Wire Fence Erector Relationship Specialty Start Date End Date Justen Gale MD [facility]. [address] [place] [address] PCP - General FAMILY PRACTICE 08/20/17 Meena Bansal MD [facility]. [address] [place] [address] [place] Deckhand Sponge Boat CARDIOVASCULAR DISEASE 04/24/16 documented as of this encounter
--- OUTSIDE RECORDS SUMMARY | 2024-04-26 07:02 | XMS_ITS | Encounter Summary ---
Author Organization [facility] Address [address] [place] [address]. [place] [address] [place] [address] Care Team Providers Care Factory Representative Name Role Phone Meena Bansal MD Unavailable [phone] Justen Gale MD Primary Care Provider [phone] Reason for Referral * Imaging (Emergency) - Closed Specialty Diagnoses / Procedures Referred By Elyssa benavides Referred To Contact RADIOLOGY Procedures CT ABD+PEL W IV CON ONLY Josep Jaimes PA-C [address] [facility] [address] [place] [address] Phone: tel: fax: Referral ID Status Reason Start Date Expiration Date Visits Re quested Visits Authorized [id number] Closed 09/05/2019 10/05/2020 1 1 Reason for Visit * Reason Comments Suspected Coronavirus (Covid-19) Encounter Details Date Type Department Care Team (Late st Contact Info) Description 09/05/2019 5:59 PM CDT - 09/05/2019 10:[address] [facility] [place] [address] Josep Jaimes PA-C [address] [facility] [address] [place] [address] Suspected Coronavirus (Covid-19) Discharge Disposition: [...] Sexual Orientation Straight 03/18/2018 3: 01 AM NURSE CLINICIAN COVID-19 Exposure Response Date Recorded In the [...] you can. COVID-19 Symptoms, Spread and Prevention: https://www.dhs.[place].gov/publications/y09807.pdf Self-Isolation for Individuals Being Evaluated for COVID-19: https://www.dhs.[place].gov/publications/a24981.pdf * Attachments The following attachments cannot be sent through Care Everywhere. * Viral Syndrome Discharge Instructions (Jamaican) * Nausea and Vomiting Discharge Instructions, Adult (Jamaican) documented in this encounter Medications at Time [...] of 09/05/19 [address] [facility] Test Date: 2019-09-05 Pat Name: MOHSEN MARQUES Department: Room: [place] [address] Gender: Female Drum Printer: ISABELLA : 1955 Requested By: JOSEP JAIMES Order Number: [id number] Reading MD: Measurements Intervals [place] Rate: 83 P: 42 TX: 126 QRS: 4 QRSD: 81 T: 37 [...] CATCH COLOR (U) YELLOW TRANSPARENCY CLEAR Specific [place] (U) 1.042 (H) 1.001 - 1.030 U [...] IV CON ONLY Final Result by User, [id number] (09/04 2014) EXAMINATION: CT Abdomen and Pelvis [...] Atherosclerosis. CHEST PORTABLE Final Result by User, [id number] (09/04 1928) Examination: Chest 1 view portable [...] scheduled to get COVID testing tomorrow in [place], but was sent here by urgent care [...] DESCRIPTION NASOPHARYNGEAL SWAB 09/05/2019 10:13 PM CDT [facility] CORONAVIRUS SARS COV 2 PCR (RESP) NEGATIVE NEGATIVE 09/06/2019 9:28 AM CDT [facility] Comment: NEGATIVE RESULTS DO NOT PRECLUDE SARS-CoV-2 INFECTION AND SHOULD NOT BE USED THE SOLE BASIS FOR PATIENT MANAGEMENT DECISIONS. NEGATIVE RESULTS MUST BE COMBINED WITH CLINICAL OBSERVATIONS, PATIENT HISTORY, AND EPIDEMIOLOGICAL INFORMATION. 09/05/2019 8:57 PM CDT Josep Jaimes PA-C MICROBIOLOGY - GENERAL ORDERABLES Final Result [facility] [address] [place] [address], [place] [phone] [facility] [address] [place] [address], [place] [phone] * CULTURE URINE (09/05/2019 8:52 PM CDT) SPEC DESCRIPTION URINE CLEAN CATCH 09/05/2019 10:33 PM CDT [facility] SPECIAL REQUESTS NO SPECIAL REQUEST 09/05/2019 10:33 PM CDT [facility] CULTURE RESULT NO GROWTH 2 DAYS 09/08/2019 8:09 AM CDT [facility] URINE SPECIMEN OBTAINED BY CLEAN CATCH PROCEDURE / Unknown 09/05/2019 8:52 PM CDT 09/05/2019 10:33 PM CDT us Josep Jaimes PA-C MICROBIOLOGY - GENERAL ORDERABLES Final Result [facility] [address] [place] [address], [place] [phone] * (ABNORMAL) URINALYSIS (09/05/2019 8:52 PM CDT) SPECIMEN TYPE URINE CLEAN CATCH 09/05/2019 8:47 PM CDT [facility] COLOR (U) YELLOW 09/05/2019 9:22 PM CDT [facility] TRANSPARENCY CLEAR 09/05/2019 9:22 PM CDT [facility] SPECIFIC GRAVITY (U) 1.042(H) 1.001 - 1.030 09/05/2019 9:22 PM CDT [facility] U PH 5.0 5.0 - 9.0 09/05/2019 9:22 PM CDT [facility] LEUKOCYTES (U) TRACE(A) NEGATIVE 09/05/2019 9:22 PM CDT [facility] NITRITES NEGATIVE NEGATIVE 09/05/2019 9:22 PM CDT [facility] PROTEIN (U) NEGATIVE <30 MG/DL 09/05/2019 9:22 PM CDT [facility] URINE GLUCOSE NEGATIVE NEGATIVE MG/DL 09/05/2019 9:22 PM CDT [facility] KETONES MG/DL (U) NEGATIVE NEGATIVE MG/DL 09/05/2019 9:22 PM CDT [facility] UROBILINOGEN NEGATIVE NEGATIVE MG/DL 09/05/2019 9:22 PM CDT [facility] BILIRUBIN (U) NEGATIVE NEGATIVE MG/DL 09/05/2019 9:22 PM CDT [facility] BLOOD (U) SMALL(A) NEGATIVE 09/05/2019 9:22 PM CDT [facility] CULTURE & SENSITIVITY INDICATED? SPECIMEN SETUP FOR CULTURE 09/05/2019 9:22 PM CDT [facility] SQUAMOUS EPITHELIALS RARE /LPF 09/05/2019 9:22 PM CDT [facility] MUCUS RARE /LPF 09/05/2019 9:22 PM CDT [facility] HYALINE CASTS RARE /LPF 09/05/2019 9:22 PM CDT [facility] WBC/HPF 2 <6 /HPF 09/05/2019 9:22 PM CDT [facility] RBC/HPF <1 <6 /HPF 09/05/2019 9:22 PM CDT [facility] URINE SPECIMEN OBTAINED BY CLEAN CATCH PROCEDURE / Unknown 09/05/2019 8:52 PM CDT Josep Jaimes PA-C URINE ORDERABLES Final Result [facility] [address] [place] [address], [place] [phone] * CT ABD+PEL W IV CON ONLY [...] PM CDT) 09/05/2019 7:13 PM CDT Narrative [facility] - 09/05/2019 10:07 PM CDT [facility] [address] [facility] [place] ? Test Date: ?2019-09-05 Pat Name: ? MOHSEN MARIE ?Department: ? Room: ? [id number] Gender: ? Female ? Drum Printer: ?? GDD : ?1955 ? Requested By: JOSEP JAIMES Order Number: [id number] ? Reading : ?? Meena Bansal ? Measurements Intervals ?[place] ? Rate: ? 83 ? P: ?42 TX: ? 126 ?QRS: ?4 QRSD: ? 81 ? T: ?37 QT: ? 345 ? QTc: ?406 ? Interpretive Statements SINUS RHYTHM Compared to ECG 03/14/2019 19:17:02 No significant changes Procedure Note Meena Bansal MD - 09/05/2019 [facility] [place] [address] [facility] Test Date: 2019-09-05 Pat Name: MOHSEN MARQUES Department: Room: [id number] Gender: Female Drum Printer: ISABELLA : 1955 Requested By: JOSEP JAIMES Order Number: [id number] Reading MD: Meena Bansal Measurements Intervals [place] Rate: 83 P: 42 TX: 126 QRS: 4 QRSD: 81 T: 37 QT: 345 QTc: 406 Interpretive Statements SINUS RHYTHM Compared to ECG 03/14/2019 19:17:02 No significant changes Josep Jaimes PA-C ECG ORDERABLES Final R esult Performing Organization Address City/[facility]/ZIP Co de Phone Number [facility] * TROPONIN, QUANT (09/05/2019 6:46 PM CDT) [facility] TROPONIN I <0.015 <0.045 ng/mL. 09/05/2019 7:38 PM CDT [facility] Comment: HIGH DOSES OF BIOTIN MAY INTERFERE WITH THIS TEST RESULT. CORRELATION TO CLINICAL HISTORY AND PRESENTATION RECOMMENDED. 09/05/2019 6:46 PM CDT Josep Jaimes PA-C LABORATORY Final R esult Performing Organization Address [facility] Co de Phone Number [facility] [address] [place] [address], [place] [phone] * BNP (09/05/2019 6:46 PM CDT) [facility] B TYPE NATRIURETIC PEPTIDE 8 <100 PG/ML 09/05/2019 8:04 PM CDT [facility] 09/05/2019 6:46 PM CDT Josep Jaimes PA-C LABORATORY Final R esult Performing Organization Address City/[facility]/ZIP Co de Phone Number [facility] [address] [place] [address], [place] [phone] * LIPASE (09/05/2019 6:04 PM CDT) [facility] LIPASE 125 73 - 393 UNITS/L 09/05/2019 7:19 PM CDT [facility] 09/05/2019 6:04 PM CDT Josep Jaimes PA-C LABORATORY Final R esult [facility] [address] [place] [address], * (ABNORMAL) COMPREHENSIVE METABOLIC PANEL (09/05/2019 6:04 PM CDT) Pathologist [facility] GLUCOSE 157(H) 70 - 99 MG/DL 09/05/2019 7:19 PM CDT [facility] BUN 21(H) 7 - 18 MG/DL 09/05/2019 7:19 PM CDT [facility] CREATININE S/P/B 0.97 0.55 - 1.02 MG/DL 09/05/2019 7:19 PM CDT [facility] SODIUM S/P/B 136 136 - 145 MMOL/L 09/05/2019 7:19 PM CDT [facility] POTASSIUM S/P/B 4.0 3.5 - 5.1 MMOL/L 09/05/2019 7:19 PM CDT [facility] CHLORIDE S/P/B 100 100 - 108 MMOL/L 09/05/2019 7:19 PM CDT [facility] CO2 30.1 21 - 32 MMOL/L 09/05/2019 7:19 PM CDT [facility] CALCIUM S/P/B 10.3(H) 8.5 - 10.1 MG/DL 09/05/2019 7:19 PM CDT [facility] BILIRUBIN TOTAL S/P/B 0.4 0.2 - 1.2 MG/DL 09/05/2019 7:19 PM CDT [facility] Comment: THIS ASSAY IS NOT RECOMMENDED FOR PATIENTS UNDERGOING TREATMENT WITH ELTROMBOPAG DUE TO THE POTENTIAL FOR FALSELY ELEVATED RESULTS. TOTAL PROTEIN S/P/B 9.1(H) 6.4 - 8.2 G/DL 09/05/2019 7:19 PM CDT [facility] ALBUMIN S/P/B 3.5 3.4 - 5.0 G/DL 09/05/2019 7:19 PM CDT [facility] AST 22 15 - 37 U/L 09/05/2019 7:19 PM CDT [facility] ALT 26 14 - 55 U/L 09/05/2019 7:19 PM CDT [facility] ALKALINE PHOSPHATASE S/P/B 102 50 - 136 U/L 09/05/2019 7:19 PM CDT [facility] ANION GAP 5.9 5 - 15 MMOL/L 09/05/2019 7:19 PM CDT [facility] BUN CREATININE RATIO 21.6 6 - 26 09/05/2019 7:19 PM CDT [facility] A/G RATIO 0.6(L) 1.0 - 2.0 RATIO 09/05/2019 7:19 PM T [facility] EGFR NON-AFR. AMER. 62(L) >90 ML/MIN/1.7 3 M2 09/05/2019 7:19 PM T [facility] EGFR AFR. AMER. 72(L) >90 ML/MIN/1.7 3 M2 09/05/2019 7:19 PM CDT [facility] Comment: NOTE: eGFR is not calculated for patients <18 years of age. This is an estimated GFR (CKD EPI) and should not be used for calculating drug doses. 09/05/2019 6:04 PM CDT us Josep Jaimes PA-C LABORATORY Final R esult [facility] [address] [place] [address], [place] [phone] * (ABNORMAL) CBC W/DIFF AUTOMATED (09/05/2019 6:04 PM CDT) [facility] Signature WBC 14.1(H) 4.5 - 11.0 x10'3/uL 09/05/2019 6:57 PM CDT [facility] RBC 4.61 4.20 - 5.40 x10'6/uL 09/05/2019 6:57 PM CDT [facility] HGB 13.3 12.0 - 16.0 G/DL 09/05/2019 6:57 PM CDT [facility] HCT 42.1 38.0 - 48.0 % 09/05/2019 6:57 PM CDT [facility] MCV 91.3 81.0 - 99.0 FL 09/05/2019 6:57 PM CDT [facility] MCH 28.9 27.0 - 31.0 PG 09/05/2019 6:57 PM CDT [facility] MCHC 31.6(L) 32.0 - 36.0 G/DL 09/05/2019 6:57 PM CDT [facility] RDW 14.1 11.5 - 14.5 % 09/05/2019 6:57 PM CDT [facility] PLT 334 130 - 400 x10'3/uL 09/05/2019 6:57 PM CDT [facility] MPV 10.0 9.3 - 12.2 FL 09/05/2019 6:57 PM CDT [facility] DIFFERENTIAL TYPE AUTOMATED DIFFERENTIAL 09/05/2019 6:57 PM CDT [facility] NEUTROPHILS % 67.5 % 09/05/2019 6:57 PM CDT [facility] LYMPHOCYTES % 22.8 % 09/05/2019 6:57 PM CDT [facility] MONOCYTES % 7.3 % 09/05/2019 6:57 PM CDT [facility] EOSINOPHILS 1.7 % 09/05/2019 6:57 PM CDT [facility] BASOPHILS 0.3 % 09/05/2019 6:57 PM CDT [facility] IMMATURE GRANS % 0.4 % 09/05/19 20 6:57 PM CDT [facility] ABS. NEUTROPHILS TOTAL 9.49(H) 1.80 - 7.70 x10'3/uL 09/05/2019 6:57 PM CDT [facility] ABS. LYMPHOCYTES 3.21 1.00 - 4.80 x10'3/uL 09/05/2019 6:57 PM CDT [facility] ABS. MONOCYTES 1.03(H) 0.24 - 0.86 x10'3/uL 09/05/2019 6:57 PM CDT [facility] ABS. EOSINOPHILS 0.24 0.04 - 0.36 x10'3/uL 09/05/2019 6:57 PM CDT [facility] ABS. BASOPHILS 0.04 0.01 - 0.08 x10'3/uL 09/05/2019 6:57 PM CDT [facility] ABS. IMMATURE GRANULOCYTES 0.05 0.00 - 0.49 x10'3/uL 09/05/2019 6:57 PM CDT [facility] 09/05/2019 6:04 PM CDT us Josep Jaimes PA-C LABORATORY Final R esult [facility] [address] [place] [address], documented in this encounter Visit Diagnoses Diagnosis [...] pos. 02/201808/31/2018 08/31/2018 07/02/19 21 2:54 AM NURSE CLINICIAN documented as of this encounter Care Teams Factory Representative Relationship Specialty Start Date End Date Justen Gale MD [address] [address] PCP - General FAMILY PRACTICE 08/20/17 Meena Bansal MD [address] [place] [address] [place] [address] [place] Merchandise Planning Manager CARDIOVASCULAR DISEASE 04/24/16 documented as of this encounter
--- OUTSIDE RECORDS SUMMARY | 2024-04-26 07:02 | XMS_ITS | Encounter Summary ---
Author Organization [facility] Address [address] [place] [address]. [place] [address] [place] [address] Care Team Providers Care Plumber Assistant Name Role Phone Meena Bansal MD Unavailable [phone] Justen Gale MD Primary Care Provider [phone] Reason for Visit * Reason Comments Wound left fot insicion Encounter Details Date Type Department Care Team (Late st Contact Info) Description 07/01/2019 7:07 PM CDT - 07/01/2019 9:53 PM CDT Emergency [facility] Emergency Room [place], [place] [id number] Nayeli White, STEPH [address] [address] Wound (left fot insicion) Discharge Disposition: Home [...] Sexual Orientation Straight 03/18/2018 3: 01 AM DUCT LAYER HELPER documented as of this encounter Last Filed [...] CDT Continue your doxycycline as directed by assistant store manager sales. Take pain and nausea medications as prescribed, [...] No purulent drainage reported. Has follow-up with assistant store manager sales late this week. Denies fever, numbness distally, [...] ANKLE LT 2V Final Result by User, [id number] (06/30 1933) Examination: Left ankle 2 views [...] 15 tablet, Refills: 0 Class: Print Pharmacy: [id number] - [place], [place] - [address] (Ph #: [phone]) Disposition: Discharge Follow-Up: Justen Gale MD [address] [address] In 3 days NAYELI WHITE PA-C 07/01/2019 Nayeli White PA-C 07/01/19 6034 Cosigned by Gonsalo Harrison MD at 07/01/2019 11:04 PM CDT * Nayeli White PA-C - 07/01/2019 7:17 PM CDT [place], [place] EMERGENCY DEPARTMENT ENCOUNTER Medical Screening Examination [...] - 2.0 MMOL/L 07/01/2019 8:31 PM CDT [facility] 07/01/2019 7:41 PM CDT Nayeli White PA-C LABORATORY Final Resul t [facility] [address] [place] [address], * (ABNORMAL) COMPREHENSIVE METABOLIC PANEL (07/01/2019 7:41 PM CDT) GLUCOSE 110(H) 70 - 99 MG/DL 07/01/2019 8:30 PM CDT [facility] BUN 17 7 - 18 MG/DL 07/01/2019 8:30 PM CDT [facility] CREATININE S/P/B 0.88 0.55 - 1.02 MG/DL 07/01/2019 8:30 PM CDT [facility] SODIUM S/P/B 137 136 - 145 MMOL/L 07/01/2019 8:30 PM CDT [facility] POTASSIUM S/P/B 3.8 3.5 - 5.1 MMOL/L 07/01/2019 8:30 PM CDT [facility] CHLORIDE S/P/B 106 100 - 108 MMOL/L 07/01/2019 8:30 PM CDT [facility] CO2 27.0 21 - 32 MMOL/L 07/01/2019 8:30 PM CDT [facility] CALCIUM S/P/B 9.8 8.5 - 10.1 MG/DL 07/01/2019 8:30 PM CDT [facility] BILIRUBIN TOTAL S/P/B 0.5 0.2 - 1.2 MG/DL 07/01/2019 8:30 PM CDT [facility] Comment: THIS ASSAY IS NOT RECOMMENDED FOR PATIENTS UNDERGOING TREATMENT WITH ELTROMBOPAG DUE TO THE POTENTIAL FOR FALSELY ELEVATED RESULTS. TOTAL PROTEIN S/P/B 9.7(H) 6.4 - 8.2 G/DL 07/01/2019 8:30 PM CDT [facility] ALBUMIN S/P/B 3.6 3.4 - 5.0 G/DL 07/01/2019 8:30 PM CDT [facility] AST 17 15 - 37 U/L 07/01/2019 8:30 PM CDT [facility] ALT 31 14 - 55 U/L 07/01/2019 8:30 PM CDT [facility] ALKALINE PHOSPHATASE S/P/B 120 50 - 136 U/L 07/01/2019 8:30 PM CDT [facility] ANION GAP 4.0(L) 5 - 15 MMOL/L 07/01/2019 8:30 PM CDT [facility] BUN CREATININE RATIO 19.4 6 - 26 07/01/2019 8:30 PM CDT [facility] A/G RATIO 0.6(L) 1.0 - 2.0 RATIO 07/01/2019 8:30 PM CDT [facility] EGFR NON-AFR. AMER. 70(L) >90 ML/MIN/1.7 3 M2 07/01/2019 8:30 PM T [facility] EGFR AFR. AMER. 81(L) >90 ML/MIN/1.7 3 M2 07/01/2019 8:30 PM T [facility] Comment: NOTE: eGFR is not calculated for patients <18 years of age. This is an estimated GFR (CKD EPI) and should not be used for calculating drug doses. 07/01/2019 7:41 PM CDT Nayeli White PA-C LABORATORY Final Resul t [facility] [address] [place] [address], * (ABNORMAL) CBC W/DIFF AUTOMATED (07/01/2019 7:41 PM CDT) WBC 11.2(H) 4.5 - 11.0 x10'3/uL 07/01/2019 7:52 PM CDT [facility] RBC 5.15 4.20 - 5.40 x10'6/uL 07/01/2019 7:52 PM CDT [facility] HGB 14.5 12.0 - 16.0 G/DL 07/01/2019 7:52 PM CDT [facility] HCT 47.3 38.0 - 48.0 % 07/01/2019 7:52 PM CDT [facility] MCV 91.8 80.0 - 94.0 FL 07/01/2019 7:52 PM CDT [facility] MCH 28.2 27.0 - 31.0 PG 07/01/2019 7:52 PM CDT [facility] MCHC 30.7(L) 32.0 - 36.0 G/DL 07/01/2019 7:52 PM CDT [facility] RDW 14.5 11.5 - 14.5 % 07/01/2019 7:52 PM CDT [facility] PLT 319 130 - 400 x10'3/uL 07/01/2019 7:52 PM CDT [facility] MPV 9.7 9.3 - 12.2 FL 07/01/2019 7:52 PM CDT [facility] DIFFERENTIAL TYPE AUTOMATED DIFFERENTIAL 07/01/2019 7:52 PM CDT [facility] NEUTROPHILS % 67.6 % 07/01/2019 7:52 PM CDT [facility] LYMPHOCYTES % 23.4 % 07/01/2019 7:52 PM CDT [facility] MONOCYTES % 6.1 % 07/01/2019 7:52 PM CDT [facility] EOSINOPHILS 2.1 % 07/01/2019 7:52 PM CDT [facility] BASOPHILS 0.4 % 07/01/2019 7:52 PM CDT [facility] IMMATURE GRANS % 0.4 % 07/01/19 20 7:52 PM CDT [facility] ABS. NEUTROPHILS TOTAL 7.57 1.80 - 7.70 x10'3/uL 07/01/2019 7:52 PM CDT [facility] ABS. LYMPHOCYTES 2.62 1.00 - 4.80 x10'3/uL 07/01/2019 7:52 PM CDT [facility] ABS. MONOCYTES 0.68 0.24 - 0.86 x10'3/uL 07/01/2019 7:52 PM CDT [facility] ABS. EOSINOPHILS 0.23 0.04 - 0.36 x10'3/uL 07/01/2019 7:52 PM CDT [facility] ABS. BASOPHILS 0.04 0.01 - 0.08 x10'3/uL 07/01/2019 7:52 PM CDT [facility] ABS. IMMATURE GRANULOCYTES 0.04 0.00 - 0.49 x10'3/uL 07/01/2019 7:52 PM CDT [facility] 07/01/2019 7:41 PM CDT us Nayeli White PA-C LABORATORY Final Resul t [facility] [address] [place] [address], * XR ANKLE LT 2V (07/01/2019 7:30 [...] this section may contain times in both DUCT LAYER HELPER and CDT. Scheduled Medication Order 06/29/2019 06/30/2019 [...] pos. 02/201808/31/2018 08/31/2018 07/02/19 21 2:54 AM DUCT LAYER HELPER documented as of this encounter Care Teams Plumber Assistant Relationship Specialty Start Date End Date Justen Gale MD [address] [address] PCP - General FAMILY PRACTICE 08/20/17 Meena Bansal MD [address] [place] [address] [place] [address] [place]ons[place] Culturist CARDIOVASCULAR DISEASE 04/24/16 documented as of this encounter
--- OUTSIDE RECORDS SUMMARY | 2024-04-26 07:02 | XMS_ITS | Encounter Summary ---
Author Organization [facility] Address [address] [place] [address]. 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 COVID-19 Exposure Response Date Recorded In the [...] * Shortness of Breath (Dyspnea) Discharge Instructions (Telugu) documented in this encounter Medications at Time [...] encounter of 11/10/19 ECG 12 lead Narrative [address] Test Date: 2019-11-10 Pat Name: MOHSEN MARQUES Department: Room: [place] [address] Gender: Female 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: MIRIAM : 1955 Requested By: LEAH MACKAY Order Number: [id number] Reading MD: Measurements Intervals [place] Rate: 94 P: 36 MS: 133 QRS: 1 QRSD: 88 T: 51 [...] XR CHEST PORTABLE Final Result by User, [id number] (11/09 0657) Exam: Chest x-ray Comparison 09/05/2019 INDICATION: Shortness [...] sign changes Reviewed and scribed by , MANAGER TRAFFIC [LM] ED Course User Index [LM] Leah [...] Disposition: Discharge Follow-Up: Justen Gale MD [facility] [address] [place] [address] Schedule an appointment as soon as possible for a visit Jacek Navarro MD [facility]. [address] [place] [address] Schedule an appointment as soon as possible for a visit for further evaluation / cardiac LEAH MACKAY NP 11/10/2019 Leah Mackay NP 11/10/19 5206 Cosigned by Gonsalo Harrison MD at 11/11/2019 [...] ([facility]) RAD - 11/10/2019 9:21 PM CDT ?[facility] ? [address] [place] ? Test Date: ?2019-11-10 Pat Name: ? MOHSEN MARQUES ?Department: ? Room: ? [id number] Gender: ? Female ? 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: ?? KP : ?1955 ? Requested By: LEAH MACKAY Order Number: [id number] ? Reading MD: ?? Jacek Navarro ? Measurements Intervals ?[place] ? Rate: ? 94 ? P: ?36 MS: ? 133 ?QRS: ?1 QRSD: ? 88 ? T: ?51 QT: ? 349 ? QTc: ?438 ? Interpretive Statements Amira Carolina M.D. 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 SINUS RHYTHM Compared to ECG 09/05/2019 19:13:10 No significant changes No ischemic changes Amor Rdz CRITICAL ALERT ISSUED ON 11-10-2019 16:37:52 us Leah Mackay MANAGER TRAFFIC ECG ORDERABLES Final Result [facility] ([facility] * TROPONIN, QUANT (11/10/2019 4:02 PM CDT) TROPONIN I <0.015 <0.045 ng/mL. 11/10/2019 4:38 PM CDT [facility] Comment: HIGH DOSES OF BIOTIN MAY INTERFERE WITH THIS TEST RESULT. CORRELATION TO CLINICAL HISTORY AND PRESENTATION RECOMMENDED. 11/10/2019 4:02 PM CDT Leah Mackay NP LABORATORY Final Result Performing Organization Address [facility]/ZIP Co de Phone Number [facility] [address] [place] [address], [place] [phone] * (ABNORMAL) COMPREHENSIVE METABOLIC PANEL (11/10/2019 4:02 PM CDT) GLUCOSE 134(H) 70 - 99 MG/DL 11/10/2019 4:38 PM CDT [facility] BUN 20(H) 7 - 18 MG/DL 11/10/2019 4:38 PM CDT [facility] CREATININE S/P/B 0.90 0.55 - 1.02 MG/DL 11/10/2019 4:38 PM CDT [facility] SODIUM S/P/B 137 136 - 145 MMOL/L 11/10/2019 4:38 PM CDT [facility] POTASSIUM S/P/B 4.2 3.5 - 5.1 MMOL/L 11/10/2019 4:38 PM CDT [facility] CHLORIDE S/P/B 105 100 - 108 MMOL/L 11/10/2019 4:38 PM CDT [facility] CO2 26.9 21 - 32 MMOL/L 11/10/2019 4:38 PM CDT [facility] CALCIUM S/P/B 8.9 8.5 - 10.1 MG/DL 11/10/2019 4:38 PM T [facility] BILIRUBIN TOTAL S/P/B 0.3 0.2 - 1.2 MG/DL 11/10/2019 4:38 PM T [facility] Comment: THIS ASSAY IS NOT RECOMMENDED FOR PATIENTS UNDERGOING TREATMENT WITH ELTROMBOPAG DUE TO THE POTENTIAL FOR FALSELY ELEVATED RESULTS. TOTAL PROTEIN S/P/B 8.3(H) 6.4 - 8.2 G/DL 11/10/2019 4:38 PM T [facility] ALBUMIN S/P/B 3.0(L) 3.4 - 5.0 G/DL 11/10/2019 4:38 PM T [facility] AST 17 15 - 37 U/L 11/10/2019 4:38 PM T [facility] ALT 26 14 - 55 U/L 11/10/2019 4:38 PM T [facility] ALKALINE PHOSPHATASE S/P/B 100 50 - 136 U/L 11/10/2019 4:38 PM [facility] ANION GAP 5.1 5 - 15 MMOL/L 11/10/2019 4:38 PM T [facility] BUN CREATININE RATIO 22.3 6 - 26 11/10/2019 4:38 PM T [facility] A/G RATIO 0.6(L) 1.0 - 2.0 RATIO 11/10/2019 4:38 PM T [facility] EGFR NON-AFR. AMER. 68(L) >90 ML/MIN/1.7 3 M2 11/10/2019 4:38 PM T [facility] EGFR AFR. AMER. 79(L) >90 ML/MIN/1.7 3 M2 11/10/2019 4:38 PM CDT [facility] Comment: NOTE: eGFR is not calculated for patients <18 years of age. This is an estimated GFR (CKD EPI) and should not be used for calculating drug doses. 11/10/2019 4:02 PM CDT us Leah Mackay NP LABORATORY Final Result [facility] [address] [place] [address], [place] [phone] * (ABNORMAL) CBC W/DIFF AUTOMATED (11/10/2019 4:02 PM CDT) WBC 13.5(H) 4.5 - 11.0 x10'3/uL 11/10/2019 4:17 PM CDT [facility] RBC 4.48 4.20 - 5.40 x10'6/uL 11/10/2019 4:17 PM CDT [facility] HGB 12.9 12.0 - 16.0 G/DL 11/10/2019 4:17 PM CDT [facility] HCT 40.6 38.0 - 48.0 % 11/10/2019 4:17 PM CDT [facility] MCV 90.6 80.0 - 94.0 FL 11/10/2019 4:17 PM CDT [facility] MCH 28.8 27.0 - 31.0 PG 11/10/2019 4:17 PM CDT [facility] MCHC 31.8(L) 32.0 - 36.0 G/DL 11/10/2019 4:17 PM CDT [facility] RDW 14.4 11.5 - 14.5 % 11/10/2019 4:17 PM CDT [facility] PLT 328 130 - 400 x10'3/uL 11/10/2019 4:17 PM CDT [facility] MPV 9.6 9.3 - 12.2 FL 11/10/2019 4:17 PM CDT [facility] DIFFERENTIAL TYPE AUTOMATED DIFFERENTIAL 11/10/2019 4:17 PM CDT [facility] NEUTROPHILS % 72.2 % 11/10/2019 4:17 PM CDT [facility] LYMPHOCYTES % 18.9 % 11/10/2019 4:17 PM CDT [facility] MONOCYTES % 6.8 % 11/10/2019 4:17 PM CDT [facility] EOSINOPHILS 1.5 % 11/10/2019 4:17 PM CDT [facility] BASOPHILS 0.3 % 11/10/2019 4:17 PM CDT [facility] IMMATURE GRANS % 0.3 % 11/10/19 20 4:17 PM CDT [facility] ABS. NEUTROPHILS TOTAL 9.71(H) 1.80 - 7.70 x10'3/uL 11/10/2019 4:17 PM CDT [facility] ABS. LYMPHOCYTES 2.55 1.00 - 4.80 x10'3/uL 11/10/2019 4:17 PM CDT [facility] ABS. MONOCYTES 0.92(H) 0.24 - 0.86 x10'3/uL 11/10/2019 4:17 PM CDT [facility] ABS. EOSINOPHILS 0.20 0.04 - 0.36 x10'3/uL 11/10/2019 4:17 PM CDT [facility] ABS. BASOPHILS 0.04 0.01 - 0.08 x10'3/uL 11/10/2019 4:17 PM CDT [facility] ABS. IMMATURE GRANULOCYTES 0.04 0.00 - 0.49 x10'3/uL 11/10/2019 4:17 PM CDT [facility] 11/10/2019 4:02 PM CDT Leah Mackay NP LABORATORY Final Result [facility] [address] [place] [address], [place] [phone] * XR CHEST PORTABLE (11/10/2019 3:51 PM [...] pos. 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 [address] [place] [address] PCP - General FAMILY PRACTICE 08/20/17 Meena Bansal MD [facility]. [address] [place] [address] [place] Dish Carrier CARDIOVASCULAR DISEASE 04/24/16 documented as of this encounter
--- OUTSIDE RECORDS SUMMARY | 2024-04-26 07:02 | XMS_ITS | Encounter Summary ---
Author Organization [facility] Address [address] [place] [address]. [place] [address] [place] [address] Care Team Providers Care Senior Care Assistant Name Role Phone Meena Bansal MD Unavailable [phone] Justen Gale MD Primary Care Provider [phone] Encounter Details Date Type Department Care Team [...] Sexual Orientation Straight 03/18/2018 3: 01 AM CURATOR HERBARIUM COVID-19 Exposure Response Date Recorded In the last month, have you been in contact with someone who was confirmed or suspected to have Coronavirus / COVID-19? No / Unsure 06/25/2020 3:18 PM CURATOR HERBARIUM documented as of this encounter Functional Status [...] pos. 02/201808/31/2018 08/31/2018 07/02/19 21 2:54 AM CURATOR HERBARIUM documented as of this encounter Care Teams Senior Care Assistant Relationship Specialty Start Date End Date Justen Gale MD [address] [facility] [address] [place] [address] PCP - General FAMILY PRACTICE 08/20/17 Meena Bansal MD [address] [facility] [address] [place] [address] [employer] Lining Folder CARDIOVASCULAR DISEASE 04/24/16 documented as of this encounter
--- OUTSIDE RECORDS SUMMARY | 2024-04-26 07:02 | XMS_ITS | Encounter Summary ---
Author Organization [facility] Address [address] [place] [address]. [place] [address] [place] [address] Care Team Providers Care Cleaner Laboratory Equipment Name Role Phone Meena Bansal MD Unavailable [phone] Justen Gale MD Primary Care Provider [phone] Encounter Details Date Type Department Care Team [...] Sexual Orientation Straight 03/18/2018 3: 01 AM DEPUTY JAILER COVID-19 Exposure Response Date Recorded In the [...] on filedocumented in this encounter Care Teams Cleaner Laboratory Equipment Relationship Specialty Start Date End Date Justen Gale MD [facility]. [address] [address] PCP - General FAMILY PRACTICE 08/20/17 Meena Bansal MD [facility]. [address] [address] [place] [employer] Electrical Engineer CARDIOVASCULAR DISEASE 04/24/16 documented as of this encounter
--- OUTSIDE RECORDS SUMMARY | 2024-04-26 07:02 | XMS_ITS | Encounter Summary ---
Author Organization [facility] Address [address] [place] [address]. 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 [facility] [address] [place] [address] PCP - General FAMILY PRACTICE 08/20/17 Meena Bansal MD [address] [facility] [address] [place] [address] Hood Credit Review Officer CARDIOVASCULAR DISEASE 04/24/16 documented as of this encounter
--- OUTSIDE RECORDS SUMMARY | 2024-04-26 07:02 | XMS_ITS | Encounter Summary ---
Author Organization [facility] Address [address] [place] [address]. [place] [address] [place] [address] Care Team Providers Care Steward/Stewardess Tourist Class Name Role Phone Meena Bansal MD Unavailable [phone] Gerardo Hoffman MD Primary Care Provider [phone] Reason for Visit * Reason Comments Abdominal Pain Vomiting * Auth/Cert Specialty Diagnoses / Procedures Referred By Contkristina t Referred To Contact Diagnoses Abdominal pain Abdominal pain Referral ID Status Reason Start Date Expiration Date Visits Re quested Visits Authorized [id number] 1 1 Encounter Details Date Type Department Care Team (Late st Contact Info) Description 09/10/2018 2:50 PM CDT - 09/10/2018 3:30 PM CDT Surgery [facility] [place] [address] Crissy Sheppard MD [address] [phone] EGD Surgery Details Date/Time Status Location OR [...] Sexual Orientation Straight 03/18/2018 3: 01 AM 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 Cultures: Blood: No results found for [...] Component Value Units Date/Time OCCULT BLOOD, FECES [[id number]] Order Status: No result Lab Status: No result Specimen: STOOL CULTURE URINE [[id number]] Collected: 09/09/18 0051 Order Status: Completed Lab Status: In process Updated: 09/09/18 0108 CULTURE URINE [[id number]] Collected: 09/04/18 1918 Order Status: Completed Lab Status: Final result Updated: 09/07/18 0933 Specimen: URINE, CLEAN CATCH Spec. Description URINE CLEAN CATCH Special Requests: NO SPECIAL REQUEST Culture Result: -- POLYMICROBIAL GROWTH CONSISTENT WITH NORMAL GENITAL YESENIA. SUSCEPTIBILITIES NOT ROUTINELY PERFORMED. CULTURE STOOL [[id number]] Collected: 08/31/18905 Order Status: Completed Lab Status: Final result Updated: 09/03/18 0839 Specimen: STOOL Spec. Description STOOL Special Requests: NO SPECIAL REQUEST Culture Result: NEGATIVE FOR SHIGA TOXIN 1 AND 2 Culture Result: NO ENTERIC PATHOGENS ISOLATED Culture Result: -- NOTE: STOOL CULTURES ARE ROUTINELY SCREENED FOR SALMONELLA,SHIGELLA,YERSINIA,AEROMONAS,PLESIOMONAS,CAMPYLOBA CTER,E.COLI 0157,OVERGROWTHS OF S.AUREUS,YEAST AND P. AERUGINOSA CRYPTO/GIARDIA AG, EIA STOOL [[id number]] Collected: 08/31/18905 Order Status: Completed Lab Status: Final result Updated: 08/31/18 1443 Specimen: STOOL GIARDIA ANTIGEN: NEGATIVE CRYPTOSPOR. ANTIGEN: NEGATIVE CLOSTRIDIUM DIFFICILE [[id number]] (Abnormal) Collected: 08/31/18905 Order Status: Completed Lab Status: Final result Updated: 08/31/18 1434 Specimen: STOOL MOLECULAR ASSAY -- UNACCEPTABLE SPECIMEN RECEIVED FOR TESTING. ONLY LIQUID STOOLS ARE ACCEPTABLE UNLESS ILEUS IS PRESENT. Comment: Successful Call: CHON called 08/31/2018 02:34 PM to ROOM [id number] ([facility]/[place]) by [id number]. Read Back: Yes CULTURE, BACTERIA, BLOOD [[id number]] Collected: 08/30/182215 Order Status: Completed Lab Status: Final result Updated: 09/05/18 0830 Specimen: BLOOD Spec. Description BLOOD Special Requests: NO SPECIAL REQUEST Culture Result: NO GROWTH 6 DAYS CULTURE, BACTERIA, BLOOD [[id number]] Collected: 08/30/182215 Order Status: Completed Lab Status: Final result Updated: 09/05/18 0830 Specimen: BLOOD Spec. Description BLOOD Special Requests: NO SPECIAL REQUEST Culture Result: NO GROWTH 6 DAYS OCCULT BLOOD, FECES [[id number]] Collected: 08/30/18 2135 Order Status: Completed Lab Status: Final result Updated: 08/30/18 2306 Specimen: STOOL OCCULT BLOOD, FECAL NEGATIVE CULTURE URINE [[id number]] Collected: 08/30/18 1502 Order Status: Completed Lab [...] for nausea -NS at 150 cc/hr -Home [place] -Bowel regimen ordered ?? PE and DVT [...] well controlled tonight with initial dose of Lakeside tablets. Pt able to sleep at intervals. [...] 9:59 AM CDT Associated attestation - Kirit Staffrod MD - 09/12/2018 9:59 AM CDT Teaching [...] Concerns: None PCP: Gerardo Hoffman Insurance Plan: [facility] Notes: Pt's dtr is paid through [...] No results for input(s): PH, PCO2, PO2, [id number], BICARBWB, BASEDEFICIT, BASEEXCESS in the [id number] hours. Cultures: Blood: No results found for this visit on 09/09/18 (from the past 168 hour(s)). Urine: No results found for this visit on 09/09/18 (from the past 168 hour(s)). Microbiology Results (last 14 days) Procedure Component Value Units Date/Time OCCULT BLOOD, FECES [[id number]] Order Status: No result Lab Status: No result Specimen: STOOL CULTURE URINE [[id number]] Collected: 09/09/18 0051 Order Status: Completed Lab Status: In process Updated: 09/09/18 0108 CULTURE URINE [[id number]] Collected: 09/04/18 191 Order Status: Completed Lab Status: Final result Updated: 09/07/18 0933 Specimen: URINE, CLEAN CATCH Spec. Description URINE CLEAN CATCH Special Requests: NO SPECIAL REQUEST Culture Result: -- POLYMICROBIAL GROWTH CONSISTENT WITH NORMAL GENITAL YESENIA. SUSCEPTIBILITIES NOT ROUTINELY PERFORMED. CULTURE STOOL [[id number]] Collected: 08/31/18905 Order Status: Completed Lab Status: Final result Updated: 09/03/18 0839 Specimen: STOOL Spec. Description STOOL Special Requests: NO SPECIAL REQUEST Culture Result: NEGATIVE FOR SHIGA TOXIN 1 AND 2 Culture Result: NO ENTERIC PATHOGENS ISOLATED Culture Result: -- NOTE: STOOL CULTURES ARE ROUTINELY SCREENED FOR SALMONELLA,SHIGELLA,YERSINIA,AEROMONAS,PLESIOMONAS,CAMPYLOBA CTER,E.COLI 0157,OVERGROWTHS OF S.AUREUS,YEAST AND P. AERUGINOSA CRYPTO/GIARDIA AG, EIA STOOL [[id number]] Collected: 08/31/18905 Order Status: Completed Lab Status: Final result Updated: 08/31/18 1443 Specimen: STOOL GIARDIA ANTIGEN: NEGATIVE CRYPTOSPOR. ANTIGEN: NEGATIVE CLOSTRIDIUM DIFFICILE [[id number]] (Abnormal) Collected: 08/31/18905 Order Status: Completed Lab Status: Final result Updated: 08/31/18 1434 Specimen: STOOL MOLECULAR ASSAY -- UNACCEPTABLE SPECIMEN RECEIVED FOR TESTING. ONLY LIQUID STOOLS ARE ACCEPTABLE UNLESS ILEUS IS PRESENT. Comment: Successful Call: CHON called 08/31/2018 02:34 PM to ROOM [id number] ([address]/[place]) by [id number]. Read Back: Yes CULTURE, BACTERIA, BLOOD [[id number]] Collected: 08/30/182215 Order Status: Completed Lab Status: Final result Updated: 09/05/18 0830 Specimen: BLOOD Spec. Description BLOOD Special Requests: NO SPECIAL REQUEST Culture Result: NO GROWTH 6 DAYS CULTURE, BACTERIA, BLOOD [[id number]] Collected: 08/30/182215 Order Status: Completed Lab Status: Final result Updated: 09/05/18 0830 Specimen: BLOOD Spec. Description BLOOD Special Requests: NO SPECIAL REQUEST Culture Result: NO GROWTH 6 DAYS OCCULT BLOOD, FECES [[id number]] Collected: 08/30/18 2135 Order Status: Completed Lab Status: Final result Updated: 08/30/18 2306 Specimen: STOOL OCCULT BLOOD, FECAL NEGATIVE CULTURE URINE [[id number]] Collected: 08/30/18 1502 Order Status: Completed Lab [...] for nausea -NS at 150 cc/hr -Home [place] and Morphine for breakthrough -Bowel regimen ordered [...] 09/09/18 1100 Therapy Visit Ordering Provider CM [facility] [id number]: RECEIVED P.T. EVAL ORDER [...] were discussed with the patient and/or family/personal self pay representative. Questions were answered and the patient/family/personal self pay representative verbalized understanding and desires to proceed. * Jonel Pabon DO - 09/09/2018 4:40 AM CDT History and Physical DATE: 09/09/2018 ID: [id number] Karly Marques CC: Abdominal pain HPI: Karly [...] file Gets together: Not on file Attends hindu service: Not on file Active member of [...] ??? TRANSPARENCY 09/09/2018 CLEAR Final ??? Specific [place] (U) 09/09/2018 1.023 1.001 - 1.030 Final [...] for nausea -NS at 150 cc/hr -Home [place] and Morphine for breakthrough -Bowel regimine ordered [...] to several hospitals now. She went to [facility] and a CT scan of the abdomen [...] file Gets together: Not on file Attends hindu service: Not on file Active member of [...] Sheppard MD - 09/10/2018 6:27 PM CDT [facility] OpNote EGD , COLONOSCOPY Procedure Note Karly Montero Shelli 09/09/2018 - 09/10/2018 1450 Procedure(s) (LRB): EGD (N/A) COLONOSCOPY (N/A) Surgeon(s): Crissy Sheppard MD Staff: GI Nurse: Abiola Nur RN sample tester: Sarah Cobos Anesthesia: General Anesthesiologist: Nehemias Brown MD COLD STORAGE SUPERINTENDENT: Adriana Arais CRNA Pre-Op Diagnosis: abdominal pain Post-Op Diagnosis: [...] CLEAN CATCH COLOR YELLOW TRANSPARENCY CLEAR Specific [place] (U) 1.023 1.001 - 1.030 U PH [...] - 99 mg/dL 09/11/2018 4:39 PM CDT [facility] LAB ORDERS INTERFACE 09/11/2018 4:31 PM CDT us Kirit Stafford MD POCT ORDERABLES - DEVICE Deann bowman Result [facility] LAB ORDERS INTERFACE US * (ABNORMAL) POCT glucose (09/11/2018 11:35 AM CDT) GLUCOSE POC 137(H) 70 - 99 mg/dL 09/11/2018 11:38 AM CDT [facility] LAB ORDERS INTERFACE 09/11/2018 11:3 5 AM CDT us Kirit Stafford MD POCT ORDERABLES - DEVICE Deann l Result [facility] LAB ORDERS INTERFACE US * XR [...] history: Abdominal pain. Comparison: CT 09/04/2018. Technique: Biometrician images of the abdomen were obtained. The [...] history: Abdominal pain. Comparison: CT 09/04/2018. Technique: Biometrician images of the abdomen were obtained. The [...] POCT glucose (09/11/2018 6:52 AM CDT) Pathologist [facility] GLUCOSE POC 188(H) 70 - 99 mg/dL 09/11/2018 8:01 AM CDT [facility] LAB ORDERS INTERFACE 09/11/2018 6:52 AM CDT Kirit Stafford MD POCT ORDERABLES - DEVICE Deann l Result [facility] LAB ORDERS INTERFACE US * (ABNORMAL) CBC W/DIFF AUTOMATED (09/11/2018 5:19 AM CDT) Pathologist [facility] WBC 9.5 4.5 - 11.0 x10'3/uL 09/11/2018 6:09 AM CDT [facility] RBC 3.75(L) 4.20 - 5.40 x10'6/uL 09/11/2018 6:09 AM CDT [facility] HGB 10.5(L) 12.0 - 16.0 G/DL 09/11/2018 6:09 AM CDT [facility] HCT 33.9(L) 38.0 - 48.0 % 09/11/2018 6:09 AM CDT [facility] MCV 90.4 80.0 - 94.0 FL 09/11/2018 6:09 AM CDT [facility] MCH 28.0 27.0 - 31.0 PG 09/11/2018 6:09 AM CDT [facility] MCHC 31.0(L) 32.0 - 36.0 G/DL 09/11/2018 6:09 AM T [facility] RDW 14.1 11.5 - 14.5 % 09/11/2018 6:09 AM T [facility] PLT 272 130 - 400 x10'3/uL 09/11/2018 6:09 AM T [facility] MPV 10.1 9.3 - 12.2 FL 09/11/2018 6:09 AM T [facility] DIFFERENTIAL TYPE AUTOMATED DIFFERENTIAL 09/11/2018 6:09 AM T [facility] NEUTROPHILS % 62.0 % 09/11/2018 6:09 AM T [facility] LYMPHOCYTES % 25.3 % 09/11/2018 6:09 AM T [facility] MONOCYTES % 8.6 % 09/11/2018 6:09 AM CDT [facility] EOSINOPHILS 3.4 % 09/11/2018 6:09 AM CDT [facility] BASOPHILS 0.4 % 09/11/2018 6:09 AM T [facility] IMMATURE GRANS % 0.3 % 09/12/19 6:09 AM T [facility] ABS. NEUTROPHILS TOTAL 5.92 1.80 - 7.70 x10'3/uL 09/11/2018 6:09 AM CDT [facility] ABS. LYMPHOCYTES 2.41 1.00 - 4.80 x10'3/uL 09/11/2018 6:09 AM CDT [facility] ABS. MONOCYTES 0.82 0.24 - 0.86 x10'3/uL 09/11/2018 6:09 AM CDT [facility] ABS. EOSINOPHILS 0.32 0.04 - 0.36 x10'3/uL 09/11/2018 6:09 AM CDT [facility] ABS. BASOPHILS 0.04 0.01 - 0.08 x10'3/uL 09/11/2018 6:09 AM CDT [facility] ABS. IMMATURE GRANULOCYTES 0.03 0.00 - 0.49 x10'3/uL 09/11/2018 6:09 AM CDT [facility] 09/11/2018 5:19 AM CDT us Gil Dawson MD LABORATORY Final Result [facility] [address] [place] [address], [place] [phone] * (ABNORMAL) COMPREHENSIVE METABOLIC PANEL (09/11/2018 5:19 AM CDT) [facility] GLUCOSE 190(H) 70 - 99 MG/DL 09/11/2018 6:56 AM CDT [facility] BUN 17 7 - 18 MG/DL 09/11/2018 6:56 AM CDT [facility] CREATININE S/P/B 0.85 0.55 - 1.02 MG/DL 09/11/2018 6:56 AM CDT [facility] SODIUM S/P/B 141 136 - 145 MMOL/L 09/11/2018 6:56 AM CDT [facility] POTASSIUM S/P/B 4.2 3.5 - 5.1 MMOL/L 09/11/2018 6:56 AM T [facility] CHLORIDE S/P/B 109(H) 100 - 108 MMOL/L 09/11/2018 6:56 AM T [facility] CO2 26.6 21 - 32 MMOL/L 09/11/2018 6:56 AM T [facility] CALCIUM S/P/B 8.7 8.5 - 10.1 MG/DL 09/11/2018 6:56 AM T [facility] BILIRUBIN TOTAL S/P/B 0.4 0.2 - 1.2 MG/DL 09/11/2018 6:56 AM T [facility] TOTAL PROTEIN S/P/B 7.0 6.4 - 8.2 G/DL 09/11/2018 6:56 AM T [facility] ALBUMIN S/P/B 2.8(L) 3.4 - 5.0 G/DL 09/11/2018 6:56 AM T [facility] AST 14(L) 15 - 37 U/L 09/11/2018 6:56 AM T [facility] ALT 22 14 - 55 U/L 09/11/2018 6:56 AM T [facility] ALKALINE PHOSPHATASE S/P/B 85 50 - 136 U/L 09/11/2018 6:56 AM T [facility] ANION GAP 9.6 8 - 20 MMOL/L 09/11/2018 6:56 AM T [facility] BUN CREATININE RATIO 20.1 6 - 26 09/11/2018 6:56 AM T [facility] A/G RATIO 0.7(L) 1.0 - 2.0 RATIO 09/11/2018 6:56 AM CDT [facility] EGFR NON-AFR. AMER. 73(L) >90 ML/MIN/1.7 3 M2 09/11/2018 6:56 AM CDT [facility] EGFR AFR. AMER. 85(L) >90 ML/MIN/1.7 3 M2 09/11/2018 6:56 AM CDT [facility] Comment: NOTE: eGFR is not calculated for patients <18 years of age. This is an estimated GFR (CKD EPI) and should not be used for calculating drug doses. 09/11/2018 5:19 AM CDT Gil Dawson MD LABORATORY Final Result Performing Organization Address [facility] Co de Phone Number [facility] [address] [place] [address], * (ABNORMAL) POCT glucose (09/11/2018 12:13 AM CDT) GLUCOSE POC 221(H) 70 - 99 mg/dL 09/11/2018 12:16 AM CDT [facility] LAB ORDERS INTERFACE 09/11/2018 12:1 3 AM CDT Kirit Stafford MD POCT ORDERABLES - DEVICE Deann l Result Performing Organization Address City/[facility] Co de Phone Number [facility] LAB ORDERS INTERFACE US * (ABNORMAL) POCT glucose (09/10/2018 8:29 PM CDT) GLUCOSE POC 181(H) 70 - 99 mg/dL 09/10/2018 11:04 PM CDT [facility] LAB ORDERS INTERFACE 09/10/2018 8:29 PM CDT Kirit Stafford MD POCT ORDERABLES - DEVICE Deann l Result Performing Organization Address City/[facility]/ZIP Co de Phone Number [facility] LAB ORDERS INTERFACE US * (ABNORMAL) POCT glucose (09/10/2018 4:19 PM CDT) GLUCOSE POC 114(H) 70 - 99 mg/dL 09/10/2018 4:22 PM CDT [facility] LAB ORDERS INTERFACE 09/10/2018 4:19 PM CDT Kirit Stafford MD POCT ORDERABLES - DEVICE Deann l Result Performing Organization Address [facility] Co de Phone Number [facility] LAB ORDERS INTERFACE US * (ABNORMAL) POCT glucose (09/10/2018 12:24 PM CDT) GLUCOSE POC 135(H) 70 - 99 mg/dL 09/10/2018 12:27 PM CDT [facility] LAB ORDERS INTERFACE 09/10/2018 12:2 4 PM CDT Kirit Stafford MD POCT ORDERABLES - DEVICE Deann l Result Performing Organization Address [facility] de Phone Number [facility] LAB ORDERS INTERFACE US * (ABNORMAL) HEMOGLOBIN, GLYCOSYLATED (09/10/2018 5:57 AM CDT) HGB A1C 7.8(H) 4.2 - 6.3 % 09/10/2018 3:26 PM CDT [facility] Comment: ADA GUIDELINES 2010 5.7 TO 6.4% INCREASED RISK OF DIABETES > OR = 6.5% CONSISTENT WITH DIABETES ESTIMATED AVG GLUCOSE 177 mg/dL 09/10/2018 3:26 PM CDT [facility] 09/10/2018 5:57 AM CDT Shanthi Mendez MD LABORATORY Final Result Performing Organization Address [facility] Co de Phone Number [facility] [address] [place] [address], [place] [phone] * (ABNORMAL) CBC W/DIFF AUTOMATED (09/10/2018 5:57 AM CDT) WBC 7.6 4.5 - 11.0 x10'3/uL 09/10/2018 7:01 AM CDT [facility] RBC 3.93(L) 4.20 - 5.40 x10'6/uL 09/10/2018 7:01 AM CDT [facility] HGB 10.9(L) 12.0 - 16.0 G/DL 09/10/2018 7:01 AM CDT [facility] HCT 35.8(L) 38.0 - 48.0 % 09/10/2018 7:01 AM CDT [facility] MCV 91.1 81.0 - 99.0 FL 09/10/2018 7:01 AM CDT [facility] MCH 27.7 27.0 - 31.0 PG 09/10/2018 7:01 AM CDT [facility] MCHC 30.4(L) 32.0 - 36.0 G/DL 09/10/2018 7:01 AM CDT [facility] RDW 13.9 11.5 - 14.5 % 09/10/2018 7:01 AM T [facility] PLT 268 130 - 400 x10'3/uL 09/10/2018 7:01 AM CDT [facility] MPV 9.8 9.3 - 12.2 FL 09/10/2018 7:01 AM CDT [facility] DIFFERENTIAL TYPE AUTOMATED DIFFERENTIAL 09/10/2018 7:01 AM CDT [facility] NEUTROPHILS % 56.8 % 09/10/2018 7:01 AM CDT [facility] LYMPHOCYTES % 28.9 % 09/10/2018 7:01 AM CDT [facility] MONOCYTES % 8.0 % 09/10/2018 7:01 AM CDT [facility] EOSINOPHILS 5.5 % 09/10/2018 7:01 AM CDT [facility] BASOPHILS 0.4 % 09/10/2018 7:01 AM CDT [facility] IMMATURE GRANS % 0.4 % 09/11/19 7:01 AM CDT [facility] ABS. NEUTROPHILS TOTAL 4.30 1.80 - 7.70 x10'3/uL 09/10/2018 7:01 AM CDT [facility] ABS. LYMPHOCYTES 2.19 1.00 - 4.80 x10'3/uL 09/10/2018 7:01 AM CDT [facility] ABS. MONOCYTES 0.61 0.24 - 0.86 x10'3/uL 09/10/2018 7:01 AM CDT [facility] ABS. EOSINOPHILS 0.42(H) 0.04 - 0.36 x10'3/uL 09/10/2018 7:01 AM CDT [facility] ABS. BASOPHILS 0.03 0.01 - 0.08 x10'3/uL 09/10/2018 7:01 AM CDT [facility] ABS. IMMATURE GRANULOCYTES 0.03 0.00 - 0.49 x10'3/uL 09/10/2018 7:01 AM CDT [facility] 09/10/2018 5:57 AM CDT us Gil Dawson MD LABORATORY Final Result [facility] [address] [place] [address], [place] [phone] * (ABNORMAL) COMPREHENSIVE METABOLIC PANEL (09/10/2018 5:57 AM CDT) [facility] GLUCOSE 121(H) 70 - 99 MG/DL 09/10/2018 7:43 AM CDT [facility] BUN 13 7 - 18 MG/DL 09/10/2018 7:43 AM T [facility] CREATININE S/P/B 0.64 0.55 - 1.02 MG/DL 09/10/2018 7:43 AM T [facility] SODIUM S/P/B 136 136 - 145 MMOL/L 09/10/2018 7:43 AM T [facility] POTASSIUM S/P/B 4.3 3.5 - 5.1 MMOL/L 09/10/2018 7:43 AM T [facility] CHLORIDE S/P/B 106 100 - 108 MMOL/L 09/10/2018 7:43 AM T [facility] CO2 22.6 21 - 32 MMOL/L 09/10/2018 7:43 AM T [facility] CALCIUM S/P/B 8.5 8.5 - 10.1 MG/DL 09/10/2018 7:43 AM T [facility] BILIRUBIN TOTAL S/P/B 0.7 0.2 - 1.2 MG/DL 09/10/2018 7:43 AM T [facility] TOTAL PROTEIN S/P/B 6.8 6.4 - 8.2 G/DL 09/10/2018 7:43 AM T [facility] ALBUMIN S/P/B 2.7(L) 3.4 - 5.0 G/DL 09/10/2018 7:43 AM CDT [facility] AST 18 15 - 37 U/L 09/10/2018 7:43 AM T [facility] ALT 22 14 - 55 U/L 09/10/2018 7:43 AM T [facility] ALKALINE PHOSPHATASE S/P/B 78 50 - 136 U/L 09/10/2018 7:43 AM CDT [facility] ANION GAP 11.7 8 - 20 MMOL/L 09/10/2018 7:43 AM CDT [facility] BUN CREATININE RATIO 20.3 6 - 26 09/10/2018 7:43 AM CDT [facility] A/G RATIO 0.7(L) 1.0 - 2.0 RATIO 09/10/2018 7:43 AM T [facility] EGFR NON-AFR. AMER. >90 >90 ML/MIN/1.7 3 M2 09/10/2018 7:43 AM CDT [facility] EGFR AFR. AMER. >90 >90 ML/MIN/1.7 3 M2 09/10/2018 7:43 AM CDT [facility] Comment: NOTE: eGFR is not calculated for patients <18 years of age. This is an estimated GFR (CKD EPI) and should not be used for calculating drug doses. 09/10/2018 5:57 AM CDT us Jonel Pabon DO LABORATORY Final Result Performing Organization Address City/[facility]/ZIP Co de Phone Number [facility] [address] [place] [address], [place] [phone] * (ABNORMAL) POCT glucose (09/10/2018 5:37 AM CDT) GLUCOSE POC 143(H) 70 - 99 mg/dL 09/10/2018 7:20 AM CDT [facility] LAB ORDERS INTERFACE 09/10/2018 5:37 AM CDT us Kirit Stafford MD POCT ORDERABLES - DEVICE Deann l Result [facility] LAB ORDERS INTERFACE US * (ABNORMAL) POCT glucose (09/09/2018 9:55 PM CDT) GLUCOSE POC 127(H) 70 - 99 mg/dL 09/09/2018 10:00 PM CDT [facility] LAB ORDERS INTERFACE 09/09/2018 9:55 PM CDT Kirit Stafford MD POCT ORDERABLES - DEVICE Deann l Result Performing Organization Address [facility] Co de Phone Number [facility] LAB ORDERS INTERFACE US * (ABNORMAL) POCT glucose (09/09/2018 5:18 PM CDT) GLUCOSE POC 122(H) 70 - 99 mg/dL 09/09/2018 5:21 PM CDT [facility] LAB ORDERS INTERFACE 09/09/2018 5:18 PM CDT Kirit Stafofrd MD POCT ORDERABLES - DEVICE Deann l Result Performing Organization Address [facility] de Phone Number [facility] LAB ORDERS INTERFACE US * (ABNORMAL) POCT glucose (09/09/2018 12:02 PM CDT) GLUCOSE POC 146(H) 70 - 99 mg/dL 09/09/2018 3:59 PM CDT [facility] LAB ORDERS INTERFACE 09/09/2018 12:0 2 PM CDT Kirit Stafford MD POCT ORDERABLES - DEVICE Deann l Result Performing Organization Address [facility] Co de Phone Number [facility] LAB ORDERS INTERFACE US * (ABNORMAL) POCT glucose (09/09/2018 6:28 AM CDT) GLUCOSE POC 154(H) 70 - 99 mg/dL 09/09/2018 6:31 AM CDT [facility] LAB ORDERS INTERFACE 09/09/2018 6:28 AM CDT Kirit Stafford MD POCT ORDERABLES - DEVICE Deann l Result Performing Organization Address City/[facility] Co de Phone Number [facility] LAB ORDERS INTERFACE US * CULTURE URINE (09/09/2018 12:51 AM CDT) SPEC DESCRIPTION URINE CLEAN CATCH 09/09/2018 1:08 AM CDT [facility] SPECIAL REQUESTS NO SPECIAL REQUEST 09/09/2018 1:08 AM CDT [facility] CULTURE RESULT POLYMICROBIAL GROWTH CONSISTENT WITH NORMAL GENITAL YESENIA. ?? SUSCEPTIBILITIES NOT ROUTINELY PERFORMED. 09/11/2018 6:58 AM CDT [facility] URINE SPECIMEN OBTAINED BY CLEAN CATCH PROCEDURE / Unknown 09/09/2018 12:51 AM CDT 09/09/2018 1:07 AM CDT us Colten Reilly MD MICROBIOLOGY - GENERAL ORDERABLE S Final Result [facility] [address] [place] [address], * (ABNORMAL) URINALYSIS (09/09/2018 12:50 AM CDT) SPECIMEN TYPE URINE CLEAN CATCH 09/09/2018 12:51 AM CDT [facility] COLOR (U) YELLOW 09/09/2018 1:07 AM CDT [facility] TRANSPARENCY CLEAR 09/09/2018 1:07 AM CDT [facility] SPECIFIC GRAVITY (U) 1.023 1.001 - 1.030 09/09/2018 1:07 AM CDT [facility] U PH 5.0 5.0 - 9.0 09/09/2018 1:07 AM CDT [facility] LEUKOCYTES (U) MODERATE(A) NEGATIVE 9 1:07 AM CDT [facility] NITRITES NEGATIVE NEGATIVE 09/09/2018 1:07 AM CDT [facility] PROTEIN (U) NEGATIVE <30 MG/DL 09/09/2018 1:07 AM CDT [facility] URINE GLUCOSE NEGATIVE NEGATIVE MG/DL 09/09/2018 1:07 AM CDT [facility] KETONES MG/DL (U) NEGATIVE NEGATIVE MG/DL 09/09/2018 1:07 AM CDT [facility] UROBILINOGEN NEGATIVE NEGATIVE MG/DL 09/09/2018 1:07 AM T [facility] BILIRUBIN (U) NEGATIVE NEGATIVE MG/DL 09/09/2018 1:07 AM T [facility] BLOOD (U) MODERATE(A) NEGATIVE 09/09/2018 1:07 AM [facility] CULTURE & SENSITIVITY INDICATED? SPECIMEN SETUP FOR CULTURE 09/09/2018 1:07 AM T [facility] SQUAMOUS EPITHELIALS FEW /LPF 09/09/2018 1:07 AM T [facility] MUCUS RARE /LPF 09/09/2018 1:07 AM T [facility] WBC/HPF 22(H) <6 /HPF 09/09/2018 1:07 AM T [facility] RBC/HPF 28(H) <6 /HPF 09/09/2018 1:07 AM T [facility] URINE SPECIMEN OBTAINED BY CLEAN CATCH PROCEDURE / Unknown 09/09/2018 12:50 AM CDT us Colten Reilly MD URINE ORDERABLES Final Result [facility] [address] [place] [address], * LIPASE (09/09/2018 12:50 AM CDT) LIPASE 156 73 - 393 UNITS/L 09/09/2018 1:30 AM CDT [facility] 09/09/2018 12:5 0 AM CDT us Colten Reilly MD LABORATORY Final Result [facility] [address] [place] [address], * (ABNORMAL) COMPREHENSIVE METABOLIC PANEL (09/09/2018 12:50 AM CDT) Pathologist [facility] GLUCOSE 191(H) 70 - 99 MG/DL 09/09/2018 1:30 AM CDT [facility] BUN 20(H) 7 - 18 MG/DL 09/09/2018 1:30 AM CDT [facility] CREATININE S/P/B 0.93 0.55 - 1.02 MG/DL 09/09/2018 1:30 AM CDT [facility] SODIUM S/P/B 135(L) 136 - 145 MMOL/L 09/09/2018 1:30 AM CDT [facility] POTASSIUM S/P/B 4.2 3.5 - 5.1 MMOL/L 09/09/2018 1:30 AM CDT [facility] CHLORIDE S/P/B 102 100 - 108 MMOL/L 09/09/2018 1:30 AM CDT [facility] CO2 28.7 21 - 32 MMOL/L 09/09/2018 1:30 AM CDT [facility] CALCIUM S/P/B 9.4 8.5 - 10.1 MG/DL 09/09/2018 1:30 AM CDT [facility] BILIRUBIN TOTAL S/P/B 0.4 0.2 - 1.2 MG/DL 09/09/2018 1:30 AM CDT [facility] TOTAL PROTEIN S/P/B 9.0(H) 6.4 - 8.2 G/DL 09/09/2018 1:30 AM T [facility] ALBUMIN S/P/B 3.6 3.4 - 5.0 G/DL 09/09/2018 1:30 AM T [facility] AST 20 15 - 37 U/L 09/09/2018 1:30 AM T [facility] ALT 26 14 - 55 U/L 09/09/2018 1:30 AM T [facility] ALKALINE PHOSPHATASE S/P/B 102 50 - 136 U/L 09/09/2018 1:30 AM T [facility] ANION GAP 8.5 8 - 20 MMOL/L 09/09/2018 1:30 AM T [facility] BUN CREATININE RATIO 21.6 6 - 26 09/09/2018 1:30 AM [facility] A/G RATIO 0.7(L) 1.0 - 2.0 RATIO 09/09/2018 1:30 AM T [facility] EGFR NON-AFR. AMER. 66(L) >90 ML/MIN/1.7 3 M2 09/09/2018 1:30 AM [facility] EGFR AFR. AMER. 76(L) >90 ML/MIN/1.7 3 M2 09/09/2018 1:30 AM [facility] Comment: NOTE: eGFR is not calculated for patients <18 years of age. This is an estimated GFR (CKD EPI) and should not be used for calculating drug doses. 09/09/2018 12:5 0 AM CDT us Colten Reilly MD LABORATORY Final Result [facility] [address] [place] [address], [place] [phone] * (ABNORMAL) CBC W/DIFF AUTOMATED (09/09/2018 12:50 AM CDT) WBC 12.5(H) 4.5 - 11.0 x10'3/uL 09/09/2018 1:16 AM CDT [facility] RBC 4.84 4.20 - 5.40 x10'6/uL 09/09/2018 1:16 AM CDT [facility] HGB 13.5 12.0 - 16.0 G/DL 09/09/2018 1:16 AM CDT [facility] HCT 42.7 38.0 - 48.0 % 09/09/2018 1:16 AM CDT [facility] MCV 88.2 80.0 - 94.0 FL 09/09/2018 1:16 AM CDT [facility] MCH 27.9 27.0 - 31.0 PG 09/09/2018 1:16 AM CDT [facility] MCHC 31.6(L) 32.0 - 36.0 G/DL 09/09/2018 1:16 AM CDT [facility] RDW 13.8 11.5 - 14.5 % 09/09/2018 1:16 AM CDT [facility] PLT 383 130 - 400 x10'3/uL 09/09/2018 1:16 AM CDT [facility] MPV 9.7 9.3 - 12.2 FL 09/09/2018 1:16 AM CDT [facility] DIFFERENTIAL TYPE MANUAL DIFFERENTIAL 09/09/2018 1:54 AM CDT [facility] SEG NEUTROPHILS 60 % 9 1:54 AM CDT [facility] LYMPHOCYTES 23 % 09/09/2018 1:54 AM CDT [facility] MONOCYTES 13 % 09/09/2018 1:54 AM CDT [facility] EOSINOPHILS 3 % 09/09/2018 1:54 AM CDT [facility] MYELOCYTES 1 % 09/09/2018 1:54 AM CDT [facility] ABS. NEUTROPHILS CALCULATED 7.50 1.80 - 7.70 x10'3/uL 09/09/2018 1:54 AM CDT [facility] ABS.LYMPHOCYTES CALCULATED 2.88 1.00 - 4.80 x10'3/uL 09/09/2018 1:54 AM CDT [facility] ABS. MONOCYTES CALCULATED 1.63(H) 0.24 - 0.86 x10'3/uL 09/09/2018 1:54 AM CDT [facility] ABS. EOSINOPHIL CALCULATED 0.38(H) 0.04 - 0.36 x10'3/uL 09/09/2018 1:54 AM CDT [facility] ABS. MYELOCYTES 0.13(H) 0.00 x10'3/uL 09/09/2018 1:54 AM CDT [facility] RBC MORPHOLOGY RBC MORPHOLOGY APPEARS NORMAL. SLIDE REVIEWED. 09/09/2018 1:54 AM CDT [facility] PLT EST. ADEQUATE 09/09/2018 1:54 AM CDT [facility] 09/09/2018 12:5 0 AM CDT us Colten Reilly MD LABORATORY Final Result [facility] [address] [place] [address], [place] [phone] documented in this encounter Visit Diagnoses Not [...] Moss RN)[id number] (Not Given - Provider: Albert Gaxiloa RN - Reason: Other - Comment: [phone]) [...] morning, Pre-Procedure 2010 (Given - Provider: Mary Slaon LPN) Linked Groups Order Group 1: insulin [...] pos. 02/201808/31/2018 08/31/2018 07/02/19 21 2:54 AM TOPSTITCHER LOCKSTITCH documented as of this encounter Care Teams Steward/Stewardess Tourist Class Relationship Specialty Start Date End Date Gerardo Hoffman MD [address] [facility] [address] [place] [address] PCP - General FAMILY PRACTICE 08/20/17 Meena Bansal MD [address] [facility] [address] [place] [address] [employer] CARDIOVASCULAR DISEASE 04/24/16 documented as of this encounter
--- OUTSIDE RECORDS SUMMARY | 2024-04-26 07:02 | XMS_ITS | Encounter Summary ---
Author Organization [facility] Address [address] [place] [address]. [place] [address] [place] [address] Care Team Providers Care Toy Packer Name Role Phone Meena Bansal MD Unavailable Justen Gale MD Primary Care Provider [phone] Reason for Referral * Imaging (Emergency) - Closed Specialty Diagnoses / Procedures Referred By Elyssa t Referred To Contact RADIOLOGY Procedures CT ABD+PEL W IV CON ONLY Jaswinder Gaytan MD [address] [place] [address] Phone: tel: fax: Referral ID Status Reason Start Date Expiration Date Visits Re quested Visits Authorized [id number] Closed 06/25/2020 07/26/2021 1 1 OR SALES REPRESENTATIVE Reason for Visit * Reason Comments Shortness Of Breath Encounter Details Date Type Department Care Team (Late st Contact Info) Description 06/25/2020 3:31 PM JUNIOR SALES REPRESENTATIVE - 06/25/2020 11:20 PM JUNIOR SALES REPRESENTATIVE Emergency [facility] Emergency Room [address] [place], [place] [id number] Jaswinder Gaytan MD [address] [place], [place] [address] Shortness Of Breath Discharge Disposition: Home or [...] Sexual Orientation Straight 03/18/2018 3: 01 AM JUNIOR SALES REPRESENTATIVE COVID-19 Exposure Response Date Recorded In the last month, have you been in contact with someone who was confirmed or suspected to have Coronavirus / COVID-19? No / Unsure 06/25/2020 3:18 PM JUNIOR SALES REPRESENTATIVE documented as of this encounter Last Filed Vital Signs Vital Sign Reading Time Taken Comments Blood Pressure 137/82 06/25/2020 9:30 PM JUNIOR SALES REPRESENTATIVE Pulse 84 06/25/2020 9:45 PM JUNIOR SALES REPRESENTATIVE Temperature 36.9 ??C (98.4 ??F) 06/25/2020 3:25 PM CS T Respiratory Rate 23 06/25/2020 9:45 PM JUNIOR SALES REPRESENTATIVE Oxygen Saturation 96% 06/25/2020 9:45 PM JUNIOR SALES REPRESENTATIVE Inhaled Oxygen Concentration - - Weight 136.3 kg (300 lb 7.8 oz) 06/25/2020 3:25 PM JUNIOR SALES REPRESENTATIVE Height 154.9 cm (5' 1 ) 06/25/2020 3:25 PM JUNIOR SALES REPRESENTATIVE Body Mass Index 56.78 06/25/2020 3:25 PM JUNIOR SALES REPRESENTATIVE documented in this encounter Functional Status * [...] Jaswinder Gaytan MD - 06/25/2020 11:12 PM JUNIOR SALES REPRESENTATIVE Emergency Departments (ED) provide medical screening exams [...] care by your primary care physician or data processing systems consultant. Your medication list was reviewed prior [...] such as many narcotic drug combinations and [id number] cold medicines. Your feedback is important to us. Please fill out the survey you will get in the mail. We need yourinput to give you the best care possible! With your feedback we??ll know where we need to focus ourefforts to provide very good service to our patients! OR SALES REPRESENTATIVE * Attachments The following attachments cannot be sent through Care Everywhere. * Gas and Bloating (Icelandic) * Shortness of Breath (Dyspnea) Discharge Instructions (Icelandic) documented in this encounter Medications at [...] encounter of 06/25/20 ECG 12 lead Narrative [address] Test Date: 2020-06-25 Pat Name: MOHSEN MARQUES Department: Room: [facility] Gender: Female Telesales Specialist: : [id number] Requested By: RONEL WALKER Order Number: [id number] Reading MD: Measurements Intervals [place] Rate: 85 P: 28 [place]: 127 QRS: -1 QRSD: 91 T: 41 [...] COLOR (U) LIGHT YELLOW TRANSPARENCY CLEAR Specific [place] (U) 1.022 1.001 - 1.030 U PH [...] IV CON ONLY Final Result by User, [id number] (06/25 2117) Examination: CT ABD+PEL W CON [...] XR CHEST PORTABLE Final Result by User, [id number] (06/25 1700) Examination: Chest 1 view portable [...] diagnosis and risks, and we agree with discharginghome to follow-up with their primary doctor. We [...] I dictated portions of this note using [employer] speech recognition software. Occasional wrong word or sound-alike substitutions may have occurred due to the inherent limitations of voice recognition software. Please read the chart carefully and recognize, using context, where the substitutions may have occurred. If there are any questions, please contact me via [employer] or other HIPAA compliant communication medium for clarification. Jaswinder Gaytan MD 06/25/20 7006 OR SALES REPRESENTATIVE * Jane Perez RN - 06/25/2020 9:40 PM CST Pt Bryan given update by phone. All questions answered. OR SALES REPRESENTATIVE * Jane Perez RN - 06/25/2020 8:45 PM CST Pt up to B[facility]. OR SALES REPRESENTATIVE * Jane Perez RN - 06/25/2020 8:30 PM CST Pt in CT. OR SALES REPRESENTATIVE * Jnae Perez RN - 06/25/2020 8:21 PM CST Lab called and tsh added on. OR SALES REPRESENTATIVE * Jane Perez RN - 06/25/2020 8:04 PM CST Pt given warm blankets. Call light within reach. OR SALES REPRESENTATIVE * HUMAIRA Sandoval - 06/25/2020 3:34 PM CST [place] EMERGENCY DEPARTMENT ENCOUNTER Medical Screening Examination [...] Shorty Alvarado MD at 06/27/2020 11:58 AM JUNIOR SALES REPRESENTATIVE OR SALES REPRESENTATIVE OR SALES REPRESENTATIVE * Delio Bender RN - 06/25/2020 3:28 PM CST Patient ambulatory to triage for c/o shortness of breath, n/v, mild abd pain, onset a week ago. Mystomach is kind of swollen, it's weird. Denies CP. OR SALES REPRESENTATIVE documented in this encounter Plan of Treatment Not on file documented as of this encounter Procedures Procedure Name Priority Date/Time Associated Diagnosis Comments CT ABD+PEL W CON STAT 06/25/2020 8:34 PM JUNIOR SALES REPRESENTATIVE TROPONIN, QUANT STAT 06/25/2020 8:03 PM JUNIOR SALES REPRESENTATIVE XR CHEST PORTABLE STAT 06/25/2020 4:5 4 PM JUNIOR SALES REPRESENTATIVE URINALYSIS WI REFLEX TO CULTURE STAT 06/25/2020 4:24 PM JUNIOR SALES REPRESENTATIVE ECG 12-LEAD STAT 06/25/2020 4:11 PM JUNIOR SALES REPRESENTATIVE BNP STAT 06/25/2020 4:00 PM JUNIOR SALES REPRESENTATIVE COMPREHENSIVE METABOLIC PANEL STAT 06/25/2020 4:00 PM JUNIOR SALES REPRESENTATIVE CBC W/DIFF AUTOMATED STAT 06/25/2020 4:00 PM JUNIOR SALES REPRESENTATIVE TROPONIN, QUANT STAT 06/25/2020 4:00 PM JUNIOR SALES REPRESENTATIVE THYROID STIM HORMONE TSH STAT 06/25/2020 4:00 PM JUNIOR SALES REPRESENTATIVE LIPASE STAT 06/25/2020 4:00 PM JUNIOR SALES REPRESENTATIVE documented in this encounter Results * CT ABD+PEL W IV CON ONLY (06/25/2020 8:34 PM JUNIOR SALES REPRESENTATIVE) Anatomical Region Laterality Modality Abdomen Computed Tomogra phy 06/25/2020 9:12 PM JUNIOR SALES REPRESENTATIVE Impressions 06/25/2020 9:17 PM JUNIOR SALES REPRESENTATIVE IMPRESSION: 1. ??No acute abnormality identified to explain the patient's acute symptoms. 2. ??Colonic diverticulosis without diverticulitis. Interpreted By: Osiel Vergara MD, 06/25/2020 9:12 PM Narrative 06/25/2020 9:17 PM JUNIOR SALES REPRESENTATIVE Examination: CT ABD+PEL W CON Clinical history: [...] Result * TROPONIN, QUANT (06/25/2020 8:03 PM JUNIOR SALES REPRESENTATIVE) TROPONIN I <0.015 <0.045 ng/mL. 06/25/2020 8:41 PM JUNIOR SALES REPRESENTATIVE [facility] Comment: HIGH DOSES OF BIOTIN MAY INTERFERE WITH THIS TEST RESULT. CORRELATION TO CLINICAL HISTORY AND PRESENTATION RECOMMENDED. 06/25/2020 8:03 PM JUNIOR SALES REPRESENTATIVE Ronel Walker CHANNEL PROCESS SUPERVISOR LABORATORY Final Re sult [facility] [address] [place] [address], [place] [phone] * XR CHEST PORTABLE (06/25/2020 4:54 PM JUNIOR SALES REPRESENTATIVE) Anatomical Region Laterality Modality Chest Radiographic Lizeth ging 06/25/2020 5:00 PM JUNIOR SALES REPRESENTATIVE Impressions 06/25/2020 5:00 PM JUNIOR SALES REPRESENTATIVE Impression: Borderline vascular congestion. ??No acute infiltrates. Interpreted By: Osiel Vergara MD, 06/25/2020 5:00 PM Narrative 06/25/2020 5:00 PM JUNIOR SALES REPRESENTATIVE Examination: Chest 1 view portable History: Shortness [...] Vergara MD, 06/25/2020 5:00 PM Ronel Walker CHANNEL PROCESS SUPERVISOR GENERAL IMAGING Final Re sult * (ABNORMAL) URINALYSIS WI REFLEX TO CULTURE (06/25/2020 4:24 PM JUNIOR SALES REPRESENTATIVE) SPECIMEN TYPE URINE CLEAN CATCH 06/25/2020 4:22 PM JUNIOR SALES REPRESENTATIVE [facility] COLOR (U) LIGHT YELLOW 06/25/2020 5:22 PM JUNIOR SALES REPRESENTATIVE [facility] TRANSPARENCY CLEAR 06/25/2020 5:22 PM JUNIOR SALES REPRESENTATIVE [facility] SPECIFIC GRAVITY (U) 1.022 1.001 - 1.030 06/25/2020 5:22 PM [facility] U PH 5.5 5.0 - 9.0 06/25/2020 5:22 PM [facility] LEUKOCYTES (U) NEGATIVE NEGATIVE 06/25/2020 5:22 PM [facility] NITRITES NEGATIVE NEGATIVE 06/25/2020 5:22 PM [facility] PROTEIN (U) NEGATIVE <30 MG/DL 06/25/2020 5:22 PM [facility] URINE GLUCOSE 100(A) NORMAL MG/DL 06/25/2020 5:22 PM [facility] KETONES MG/DL (U) NEGATIVE NEGATIVE MG/DL 06/25/2020 5:22 PM [facility] UROBILINOGEN NORMAL NORMAL MG/DL 06/25/2020 5:22 PM [facility] BILIRUBIN (U) NEGATIVE NEGATIVE MG/DL 06/25/2020 5:22 PM [facility] BLOOD (U) TRACE(A) NEGATIVE 06/25/2020 5:22 PM [facility] CULTURE & SENSITIVITY INDICATED? CULTURE IS NOT INDICATED 06/25/2020 5:22 PM [facility] MUCUS RARE /LPF 06/25/2020 5:22 PM [facility] HYALINE CASTS RARE /LPF 06/25/2020 5:22 PM [facility] WBC/HPF 1 <6 /HPF 06/25/2020 5:22 PM [facility] RBC/HPF 1 <6 /HPF 06/25/2020 5:22 PM [facility] SQUAMOUS EPITHELIALS RARE /HPF 06/25/2020 5:22 PM [facility] URINE SPECIMEN OBTAINED BY CLEAN CATCH PROCEDURE / Unknown 06/25/2020 4:24 PM JUNIOR SALES REPRESENTATIVE us Ronel Walker CHANNEL PROCESS SUPERVISOR URINE ORDERABLES Final R esult Performing Organization Address [facility]/State/ZIP Co de Phone Number [facility] [address] [place] [address], * ECG 12 lead (06/25/2020 4:11 PM JUNIOR SALES REPRESENTATIVE) 06/25/2020 4:11 PM JUNIOR SALES REPRESENTATIVE Narrative [facility] - 06/26/2020 6:00 AM JUNIOR SALES REPRESENTATIVE ?Portalluz elena Ordonez ? [address] [facility] [place] ? Test Date: ?2020-06-25 Pat Name: ? MOHSEN MARQUES ?Department: ? Room: ? EXAM08 Gender: ? Female ? Telesales Specialist: ?? : ?[id number] ? Requested By: RONEL WALKER Order Number: [id number] ? Reading MD: ?? Noe Cowan ? Measurements Intervals ?[place] ? Rate: ? 85 ? P: ?28 [place]: ? 127 ?QRS: ?-1 QRSD: ? 91 ? T: ?41 QT: ? 354 ? QTc: ?421 ? Interpretive Statements SINUS RHYTHM Compared to ECG 11/10/2019 16:31:46 No significant changes OR SALES REPRESENTATIVE Procedure Note Noe Cowan MD - 06/26/2020 [facility] [place] [address] [facility] Test Date: 2020-06-25 Pat Name: MOHSEN MARQUES Department: Room: [facility]08 Gender: Female Telesales Specialist: : 1955 Requested By: RONEL WALKER Order Number: [id number] Reading DAKOTA Cowan Measurements Intervals [place] Rate: 85 P: 28 [place]: 127 QRS: -1 QRSD: 91 T: 41 QT: 354 QTc: 421 Interpretive Statements SINUS RHYTHM Compared to ECG 11/10/2019 16:31:46 No significant changes OR SALES REPRESENTATIVE Ronel Walker [facility] ECG ORDERABLES Final Re sult Performing Organization Address City/[facility]/ZIP Co de Phone Number [facility] * THYROID STIM HORMONE, TSH (06/25/2020 4:00 PM JUNIOR SALES REPRESENTATIVE) [facility] TSH 1.600 0.358 - 3.74 uIU/ML 06/25/2020 9:03 PM JUNIOR SALES REPRESENTATIVE [facility] Comment: HIGH DOSES OF BIOTIN MAY INTERFERE WITH THIS TEST RESULT. CORRELATION TO CLINICAL HISTORY AND PRESENTATION RECOMMENDED. 06/25/2020 4:00 PM JUNIOR SALES REPRESENTATIVE Jaswinder Gyatan MD LABORATORY Final Result Performing Organization Address [facility]/ZIP Co de Phone Number [facility] [address] [place] [id number], * TROPONIN, QUANT (06/25/2020 4:00 PM JUNIOR SALES REPRESENTATIVE) [facility] TROPONIN I <0.015 <0.045 ng/mL. 06/25/2020 4:42 PM JUNIOR SALES REPRESENTATIVE [facility] Comment: HIGH DOSES OF BIOTIN MAY INTERFERE WITH THIS TEST RESULT. CORRELATION TO CLINICAL HISTORY AND PRESENTATION RECOMMENDED. 06/25/2020 4:00 PM JUNIOR SALES REPRESENTATIVE Ronel OLGUINP LABORATORY Final Re sult Performing Organization Address City/[facility]/ZIP Co de Phone Number [facility] [address] [place] [address], [place] [phone] * BNP (06/25/2020 4:00 PM JUNIOR SALES REPRESENTATIVE) [facility] B TYPE NATRIURETIC PEPTIDE 9 <100 PG/ML 06/25/2020 4:47 PM JUNIOR SALES REPRESENTATIVE [facility] 06/25/2020 4:00 PM JUNIOR SALES REPRESENTATIVE Ronel Walker [facility] LABORATORY Final Re sult [facility] [address] [place] [address], * LIPASE (06/25/2020 4:00 PM JUNIOR SALES REPRESENTATIVE) Pathologist [facility] LIPASE 127 73 - 393 UNITS/L 06/25/2020 4:42 PM JUNIOR SALES REPRESENTATIVE [facility] 06/25/2020 4:00 PM JUNIOR SALES REPRESENTATIVE Ronel Marlys [facility] LAB[facility] Final Re sult [facility] [address] [place] [address], [place] [phone] * (ABNORMAL) COMPREHENSIVE METABOLIC PANEL (06/25/2020 4:00 PM JUNIOR SALES REPRESENTATIVE) Pathologist [facility] GLUCOSE 210(H) 70 - 99 MG/DL 06/25/2020 4:42 PM JUNIOR SALES REPRESENTATIVE [facility] BUN 18 7 - 18 MG/DL 06/25/2020 4:42 PM [facility] CREATININE S/P/B 0.85 0.55 - 1.02 MG/DL 06/25/2020 4:42 PM JUNIOR SALES REPRESENTATIVE [facility] SODIUM S/P/B 136 136 - 145 MMOL/L 06/25/2020 4:42 PM [facility] POTASSIUM S/P/B 4.4 3.5 - 5.1 MMOL/L 06/25/2020 4:42 PM [facility] CHLORIDE S/P/B 103 100 - 108 MMOL/L 06/25/2020 4:42 PM [facility] CO2 28.6 21 - 32 MMOL/L 06/25/2020 4:42 PM [facility] CALCIUM S/P/B 10.0 8.5 - 10.1 MG/DL 06/25/2020 4:42 PM [facility] BILIRUBIN TOTAL S/P/B 0.5 0.2 - 1.2 MG/DL 06/25/2020 4:42 PM [facility] Comment: THIS ASSAY IS NOT RECOMMENDED FOR PATIENTS UNDERGOING TREATMENT WITH ELTROMBOPAG DUE TO THE POTENTIAL FOR FALSELY ELEVATED RESULTS. TOTAL PROTEIN S/P/B 8.7(H) 6.4 - 8.2 G/DL 06/25/2020 4:42 PM [facility] ALBUMIN S/P/B 3.2(L) 3.4 - 5.0 G/DL 06/25/2020 4:42 PM [facility] AST 17 15 - 37 U/L 06/25/2020 4:42 PM [facility] ALT 27 14 - 55 U/L 06/25/2020 4:42 PM [facility] ALKALINE PHOSPHATASE S/P/B 93 50 - 136 U/L 06/25/2020 4:42 PM [facility] ANION GAP 4.4(L) 5 - 15 MMOL/L 06/25/2020 4:42 PM [facility] BUN CREATININE RATIO 21.1 6 - 26 06/25/2020 4:42 PM [facility] A/G RATIO 0.6(L) 1.0 - 2.0 RATIO 06/25/2020 4:42 PM [facility] EGFR NON-AFR. AMER. 72(L) >90 ML/MIN/1.7 3 M2 06/25/2020 4:42 PM JUNIOR SALES REPRESENTATIVE [facility] EGFR AFR. AMER. 84(L) >90 ML/MIN/1.7 3 M2 06/25/2020 4:42 PM JUNIOR SALES REPRESENTATIVE [facility] Comment: NOTE: eGFR is not calculated for patients <18 years of age. This is an estimated GFR (CKD EPI) and should not be used for calculating drug doses. 06/25/2020 4:00 PM JUNIOR SALES REPRESENTATIVE us Ronel Walker [facility] LABORATORY Final Re sult [facility] [address] [place] [id number], * (ABNORMAL) CBC W/DIFF AUTOMATED (06/25/2020 4:00 PM JUNIOR SALES REPRESENTATIVE) WBC 11.1(H) 4.5 - 11.0 x10'3/uL 06/25/2020 4:20 PM JUNIOR SALES REPRESENTATIVE [facility] RBC 4.74 4.20 - 5.40 x10'6/uL 06/25/2020 4:20 PM [facility] HGB 13.6 12.0 - 16.0 G/DL 06/25/2020 4:20 PM JUNIOR SALES REPRESENTATIVE [facility] HCT 43.8 38.0 - 48.0 % 06/25/2020 4:20 PM JUNIOR SALES REPRESENTATIVE [facility] MCV 92.4 80.0 - 94.0 FL 06/25/2020 4:20 PM [facility] MCH 28.7 27.0 - 31.0 PG 06/25/2020 4:20 PM [facility] MCHC 31.1(L) 32.0 - 36.0 G/DL 06/25/2020 4:20 PM [facility] RDW 14.2 11.5 - 14.5 % 06/25/2020 4:20 PM [facility] PLT 329 130 - 400 x10'3/uL 06/25/2020 4:20 PM [facility] MPV 9.8 9.3 - 12.2 FL 06/25/2020 4:20 PM [facility] DIFFERENTIAL TYPE AUTOMATED DIFFERENTIAL 06/25/2020 4:20 PM [facility] NEUTROPHILS % 69.9 % 06/25/2020 4:20 PM [facility] LYMPHOCYTES % 21.0 % 06/25/2020 4:20 PM [facility] MONOCYTES % 6.4 % 06/25/2020 4:20 PM [facility] EOSINOPHILS 1.9 % 06/25/2020 4:20 PM [facility] BASOPHILS 0.3 % 06/25/2020 4:20 PM [facility] IMMATURE GRANS % 0.5 % 06/26/19 4:20 PM [facility] ABS. NEUTROPHILS TOTAL 7.73(H) 1.80 - 7.70 x10'3/uL 06/25/2020 4:20 PM [facility] ABS. LYMPHOCYTES 2.32 1.00 - 4.80 x10'3/uL 06/25/2020 4:20 PM [facility] ABS. MONOCYTES 0.71 0.24 - 0.86 x10'3/uL 06/25/2020 4:20 PM [facility] ABS. EOSINOPHILS 0.21 0.04 - 0.36 x10'3/uL 06/25/2020 4:20 PM [facility] ABS. BASOPHILS 0.03 0.01 - 0.08 x10'3/uL 06/25/2020 4:20 PM JUNIOR SALES REPRESENTATIVE [facility]. IMMATURE GRANULOCYTES 0.06 0.00 - 0.49 x10'3/uL 06/25/2020 4:20 PM JUNIOR SALES REPRESENTATIVE [facility] 06/25/2020 4:00 PM JUNIOR SALES REPRESENTATIVE Ronel Walker [employer]PER[employer] Final Re sult [facility] [address] [place] [address], documented in this encounter Visit Diagnoses Diagnosis [...] 06/25/20 at 2034 Given 06/25/2020 8:35 PM JUNIOR SALES REPRESENTATIVE 100 mLs Right Arm ondansetron (ZOFRAN) 4 MG/2ML injection 1 dose, Starting on Valeri 06/25/20 at 1949, Until Valeri 06/25/20 at 1951, Created by cabinet override ondansetron (ZOFRAN) injection 4 mg 4 mg, Intravenous, Once, 1 dose, On Valeri 06/25/20 at 1999, IV push over 2-5 minutes. Given 06/25/2020 7:52 PM JUNIOR SALES REPRESENTATIVE 4 mg documented in this encounter Active and Recently Administered Medications Times are shown in JUNIOR SALES REPRESENTATIVE. Scheduled Medication Order 06/23/2020 06/24/2020 06/25/2020 ondansetron [...] nares pos. 02/201808/31/2018 08/31/2018 07/02/19 2:54 AM JUNIOR SALES REPRESENTATIVE documented as of this encounter Care Teams Toy Packer Relationship Specialty Start Date End Date Justen Gale MD [address] [place] [address] PCP - General FAMILY PRACTICE 08/20/17 Meena Bansal MD [address] [place], [place] [id number] [facility] [employer] CARDIOVASCULAR DISEASE 04/24/16 documented as of this encounter
--- OUTSIDE RECORDS SUMMARY | 2024-04-26 07:02 | XMS_ITS | Encounter Summary ---
Author Organization [facility] Address [address] [place] [address]. [place] [address] [place] [address] Care Team Providers Care Freight Agent Name Role Phone Meena Bansal MD Unavailable [phone] Justen Gale MD Primary Care Provider [phone] Reason for Referral * Imaging (Emergency) - Closed Specialty Diagnoses / Procedures Referred By Elyssa benavides Referred To Contact RADIOLOGY Procedures MRI LUMB SPINE WWO CON Thomas Alvarado MD [address] [address] Phone: tel: fax: Referral ID Status Reason Start Date Expiration Date Visits Re quested Visits Authorized [id number] Closed 07/09/2020 08/09/2021 1 1 Reason for Visit * Reason Comments Back Pain Generalized Body Aches Encounter Details Date Type Department Care Team (Late st Contact Info) Description 07/09/2020 10:09 PM CDT - 07/10/2020 1:01 PM CDT Emergency [facility] Emergency Room [address] [place], [place] [id number] Thomas Alvarado MD [address] [id number] Peter Schwartz MD [address] [place] [address] Back Pain; Generalized Body Aches Discharge Disposition: [...] Sexual Orientation Straight 03/18/2018 3: 01 AM MANAGER BUSINESS MANAGEMENT COVID-19 Exposure Response Date Recorded In [...] through Care Everywhere. * Sacroiliac Joint Pain (Divehi) documented in this encounter Medications at Time [...] patient is followed by pain management in [place]. She was recently recommended to undergo MRI of her lumbar spine. Medical History ALLERGIES: Allergies Allergen [...] CATCH COLOR (U) YELLOW TRANSPARENCY CLEAR Specific Harbert (U) 1.028 1.001 - 1.030 U PH [...] SPINE WWO CON Final Result by User, [id number] (07/10 112) DATE: 07/10/2020 9:36 AM INDICATION: [...] patient is followed by pain management in [place]. 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 States [...] along the L1-L2 endplates. There is low T1/E2tquzkq seen along the SI joints, with corresponding [...] URINE CLEAN CATCH 07/09/2020 11:27 PM CDT [facility] COLOR (U) YELLOW 07/09/2020 11:48 PM CDT [facility] TRANSPARENCY CLEAR 07/09/2020 11:48 PM CDT [facility] SPECIFIC GRAVITY (U) 1.028 1.001 - 1.030 07/09/2020 11:48 PM CDT [facility] U PH 5.0 5.0 - 9.0 07/09/2020 11:48 PM CDT [facility] LEUKOCYTES (U) NEGATIVE NEGATIVE 07/09/2020 11:48 PM CDT [facility] NITRITES NEGATIVE NEGATIVE 07/09/2020 11:48 PM CDT [facility] PROTEIN (U) NEGATIVE <30 MG/DL 07/09/2020 11:48 PM CDT [facility] URINE GLUCOSE 50(A) NORMAL MG/DL 07/09/2020 11:48 PM CDT [facility] KETONES MG/DL (U) NEGATIVE NEGATIVE MG/DL 07/09/2020 11:48 PM CDT [facility] UROBILINOGEN NORMAL NORMAL MG/DL 07/09/2020 11:48 PM CDT [facility] BILIRUBIN (U) NEGATIVE NEGATIVE MG/DL 07/09/2020 11:48 PM CDT [facility] BLOOD (U) TRACE(A) NEGATIVE 07/09/2020 11:48 PM CDT [facility] CULTURE & SENSITIVITY INDICATED? CULTURE IS NOT INDICATED 07/09/2020 11:48 PM CDT [facility] MUCUS RARE /LPF 07/09/2020 11:48 PM CDT [facility] WBC/HPF 3 <6 /HPF 07/09/2020 11:48 PM CDT [facility] RBC/HPF <1 <6 /HPF 07/09/2020 11:48 PM CDT [facility] SQUAMOUS EPITHELIALS RARE /HPF 07/09/2020 11:48 PM CDT [facility] URINE SPECIMEN OBTAINED BY CLEAN CATCH PROCEDURE / Unknown 07/09/2020 11:27 PM CDT Thomas Alvarado MD URINE ORDERABLES Final R esult Performing Organization Address City/[facility]/ZIP Co de Phone Number [facility] [address] [place] [address], [place] [phone] * (ABNORMAL) SED RATE, ERYTHROCYTE (ESR) (07/09/2020 10:24 PM CDT) ESR 112(H) <30 MM/HR 07/10/2020 2:09 AM CDT [facility] Comment:Testing performed on [employer] iSED. 07/09/2020 10:2 4 PM CDT Thomas Alvarado MD LABORATORY Final Re sult [facility] [address] [place] [address], [place] [phone] * CK (CPK) (07/09/2020 10:24 PM CDT) CPK 157 21 - 215 U/L 07/09/2020 11:13 PM CDT [facility] 07/09/2020 10:2 4 PM CDT Thomas Alvarado MD LABORATORY Final Re sult [facility] [address] [place] [address], [place] [phone] * (ABNORMAL) C-REACTIVE PROTEIN (07/09/2020 10:24 PM CDT) C-REACTIVE PROTEIN 1.97(H) <0.29 mg/dL 07/09/2020 11:13 PM CDT [facility] 07/09/2020 10:2 4 PM CDT Thomas Alvarado MD LABORATORY Final Re sult Performing Organization Address City/[facility]/ZIP Co de Phone Number [facility] [address] [place] [address], [place] [phone] * MAGNESIUM (07/09/2020 10:24 PM CDT) MAGNESIUM 1.9 1.8 - 2.4 MG/DL 07/09/2020 11:13 PM CDT [facility] 07/09/2020 10:2 4 PM CDT Thomas Alvarado MD LABORATORY Final Re sult [facility] [address] [place] [address], [place] [phone] * (ABNORMAL) COMPREHENSIVE METABOLIC PANEL (07/09/2020 10:24 PM CDT) GLUCOSE 230(H) 70 - 99 MG/DL 07/09/2020 11:13 PM CDT [facility] BUN 23(H) 7 - 18 MG/DL 07/09/2020 11:13 PM CDT [facility] CREATININE S/P/B 1.01 0.55 - 1.02 MG/DL 07/09/2020 11:13 PM CDT [facility] SODIUM S/P/B 134(L) 136 - 145 MMOL/L 07/09/2020 11:13 PM CDT [facility] POTASSIUM S/P/B 4.6 3.5 - 5.1 MMOL/L 07/09/2020 11:13 PM CDT [facility] CHLORIDE S/P/B 103 100 - 108 MMOL/L 07/09/2020 11:13 PM CDT [facility] CO2 28.1 21 - 32 MMOL/L 07/09/2020 11:13 PM CDT [facility] CALCIUM S/P/B 9.7 8.5 - 10.1 MG/DL 07/09/2020 11:13 PM CDT [facility] BILIRUBIN TOTAL S/P/B 0.3 0.2 - 1.2 MG/DL 07/09/2020 11:13 PM CDT [facility] Comment: THIS ASSAY IS NOT RECOMMENDED FOR PATIENTS UNDERGOING TREATMENT WITH ELTROMBOPAG DUE TO THE POTENTIAL FOR FALSELY ELEVATED RESULTS. TOTAL PROTEIN S/P/B 8.8(H) 6.4 - 8.2 G/DL 07/09/2020 11:13 PM CDT [facility] ALBUMIN S/P/B 3.5 3.4 - 5.0 G/DL 07/09/2020 11:13 PM CDT [facility] AST 22 15 - 37 U/L 07/09/2020 11:13 PM CDT [facility] ALT 32 14 - 55 U/L 07/09/2020 11:13 PM CDT [facility] ALKALINE PHOSPHATASE S/P/B 96 50 - 136 U/L 07/09/2020 11:13 PM CDT [facility] ANION GAP 2.9(L) 5 - 15 MMOL/L 07/09/2020 11:13 PM CDT [facility] BUN CREATININE RATIO 22.8 6 - 26 07/09/2020 11:13 PM CDT [facility] A/G RATIO 0.7(L) 1.0 - 2.0 RATIO 07/09/2020 11:13 PM CDT [facility] EGFR NON-AFR. AMER. 59(L) >90 ML/MIN/1.7 3 M2 07/09/2020 11:13 PM CDT [facility] EGFR AFR. AMER. 68(L) >90 ML/MIN/1.7 3 M2 07/09/2020 11:13 PM CDT [facility] Comment: NOTE: eGFR is not calculated for patients <18 years of age. This is an estimated GFR (CKD EPI) and should not be used for calculating drug doses. 07/09/2020 10:2 4 PM CDT Thomas Alvarado MD LABORATORY Final Re sult [facility] [address] [place] [address], * (ABNORMAL) CBC W/DIFF AUTOMATED (07/09/2020 10:24 PM CDT) WBC 13.1(H) 4.5 - 11.0 x10'3/uL 07/09/2020 10:42 PM CDT [facility] RBC 4.86 4.20 - 5.40 x10'6/uL 07/09/2020 10:42 PM CDT [facility] HGB 13.9 12.0 - 16.0 G/DL 07/09/2020 10:42 PM CDT [facility] HCT 44.4 38.0 - 48.0 % 07/09/2020 10:42 PM CDT [facility] MCV 91.4 80.0 - 94.0 FL 07/09/2020 10:42 PM CDT [facility] MCH 28.6 27.0 - 31.0 PG 07/09/2020 10:42 PM CDT [facility] MCHC 31.3(L) 32.0 - 36.0 G/DL 07/09/2020 10:42 PM CDT [facility] RDW 14.2 11.5 - 14.5 % 07/09/2020 10:42 PM CDT [facility] PLT 346 130 - 400 x10'3/uL 07/09/2020 10:42 PM CDT [facility] MPV 9.7 9.3 - 12.2 FL 07/09/2020 10:42 PM CDT [facility] DIFFERENTIAL TYPE AUTOMATED DIFFERENTIAL 07/09/2020 10:42 PM CDT [facility] NEUTROPHILS % 64.9 % 07/09/2020 10:42 PM CDT [facility] LYMPHOCYTES % 25.2 % 07/09/2020 10:42 PM CDT [facility] MONOCYTES % 6.2 % 07/09/2020 10:42 PM CDT [facility] EOSINOPHILS 2.7 % 07/09/2020 10:42 PM CDT [facility] BASOPHILS 0.5 % 07/09/2020 10:42 PM CDT [facility] IMMATURE GRANS % 0.5 % 07/10/19 10:42 PM CDT [facility] ABS. NEUTROPHILS TOTAL 8.52(H) 1.80 - 7.70 x10'3/uL 07/09/2020 10:42 PM CDT [facility] ABS. LYMPHOCYTES 3.31 1.00 - 4.80 x10'3/uL 07/09/2020 10:42 PM CDT [facility] ABS. MONOCYTES 0.82 0.24 - 0.86 x10'3/uL 07/09/2020 10:42 PM CDT [facility] ABS. EOSINOPHILS 0.35 0.04 - 0.36 x10'3/uL 07/09/2020 10:42 PM CDT [facility] ABS. BASOPHILS 0.06 0.01 - 0.08 x10'3/uL 07/09/2020 10:42 PM CDT [facility] ABS. IMMATURE GRANULOCYTES 0.07 0.00 - 0.49 x10'3/uL 07/09/2020 10:42 PM CDT [facility] 07/09/2020 10:2 4 PM CDT Thomas Alvarado MD LABORATORY Final Re sult [facility] [address] [place] [address], documented in this encounter Visit Diagnoses Diagnosis [...] RTR) documented in this encounter Care Teams Freight Agent Relationship Specialty Start Date End Date Justen Gale MD [address] [place] [address] PCP - General FAMILY PRACTICE 08/20/17 Meena Bansal MD [facility]. [address] [id number] José Luis Event Organizer CARDIOVASCULAR DISEASE 04/24/16 documented as of this encounter
--- OUTSIDE RECORDS SUMMARY | 2024-04-26 07:02 | XMS_ITS | Encounter Summary ---
Author Organization [facility] Address [address] [place] [address]. [place] [address] [place] [address] Care Team Providers Care Furniture Finisher Helper Name Role Phone Meena Bansal MD Unavailable [phone] Justen Gale MD Primary Care Provider [phone] Reason for Visit * Reason Comments Back Pain Encounter Details Date Type Department Care Team (Late st Contact Info) Description 12/16/2018 9:59 AM CDT - 12/16/2018 2:32 PM CDT Emergency [facility] Emergency Room [place], [place] [id number] Jayro Cervantes MD [address] [place] [address] Back Pain Discharge Disposition: Home or [...] Sexual Orientation Straight 03/18/2018 3: 01 AM EPIC TRAINER documented as of this encounter Last Filed [...] Status No 09/09/2018 5:09 AM BRENDANT Farzaneh Mogran RN Active documented as of this encounter Mental Status * Because of a physical, mental, or emotional condition, do you have serious difficulty concentrating, remembering, or making decisions? Answer Entry Date Author Status No 09/09/2018 5:09 AM BRENDANT Farzaenh Morgan RN Active documented in this encounter [...] through Care Everywhere. * Radiculopathy Discharge Instructions (Cymraes) documented in this encounter Medications at [...] Cervantes MD - 12/16/2018 10:34 AM CDT [facility] Emergency Department Note Chief Complaint Chief [...] provider is Dr. Gale in [facility]. Patient is allergies to cephalosporins oxycodoneAtivan. Medications are filled at [facility] in [place] include insulin lisinopril. [facility] lude hernia [...] hours as needed for Pain. 12/16/18 Yes aJyro Cervantes MD amitriptyline 25 MG tablet Take [...] CLEAN CATCH COLOR YELLOW TRANSPARENCY CLEAR Specific Coleman (U) 1.016 1.001 - 1.030 U PH [...] LUMB SPINE 3V Final Result by User, [id number] (12/16 120) Examination: Lumbar Spine 3 views [...] XR CHEST PA+LAT Final Result by User, [id number] (12/16 6165) Examination: Chest x-ray 2 view Exam Date/Time: [...] 15 tablet, Refills: 0 Class: Print Pharmacy: [id number] [place], [place] - [address] [facility] [address] [facility] (Ph #: [phone]) Disposition: Discharge Follow-Up: Justen Gale MD [address] [address] In 3 days Jayro Cervantes MD 12/16/2018 Jayro Cervantes MD 12/16/18 1306 * Sumaya Betts RN - 12/16/2018 9:43 [...] - 2.0 MMOL/L 12/16/2018 1:22 PM CDT [facility] 12/16/2018 12:4 2 PM CDT Jayro Cervantes MD LABORATORY Final Result [facility] [address] [place] [address], [place] [phone] * XR LUMB SPINE 3V (12/16/2018 11:56 [...] - 2.0 MMOL/L 12/16/2018 11:50 AM CDT [facility] 12/16/2018 11:1 5 AM CDT Jayro Cervantes MD LABORATORY Final Result [facility] [address] [place] [address], [place] [phone] * CULTURE, BACTERIA, BLOOD (12/16/2018 11:15 AM CDT) SPEC DESCRIPTION BLOOD 12/16/2018 10:34 AM CDT [facility] SPECIAL REQUESTS NO SPECIAL REQUEST 12/16/2018 10:34 AM CDT [facility] CULTURE RESULT NO GROWTH 5 DAYS 12/21/2018 8:34 AM CDT [facility] BLOOD SPECIMEN OBTAINED FOR BLOOD CULTURE / Unknown 12/16/2018 11:15 AM CDT 12/16/2018 11:39 AM CDT Jayro Cervantes MD MICROBIOLOGY - GENERAL ORDERAB LES Final Result Performing Organization Address [facility] Co de Phone Number [facility] [address] [place] [address], * CULTURE, BACTERIA, BLOOD (12/16/2018 11:15 AM CDT) SPEC DESCRIPTION BLOOD 12/16/2018 10:34 AM CDT [facility] SPECIAL REQUESTS NO SPECIAL REQUEST 12/16/2018 10:34 AM CDT [facility] CULTURE RESULT NO GROWTH 5 DAYS 12/21/2018 8:34 AM CDT [facility] BLOOD SPECIMEN OBTAINED FOR BLOOD CULTURE / Unknown 12/16/2018 11:15 AM CDT 12/16/2018 11:38 AM CDT Jayro Cervantes MD MICROBIOLOGY - GENERAL ORDERAB LES Final Result Performing Organization Address [facility] Co de Phone Number [facility] [address] [place] [address], * (ABNORMAL) COMPREHENSIVE METABOLIC PANEL (12/16/2018 11:15 AM CDT) GLUCOSE 162(H) 70 - 99 MG/DL 12/16/2018 11:56 AM CDT [facility] BUN 16 7 - 18 MG/DL 12/16/2018 11:56 AM CDT [facility] CREATININE S/P/B 0.87 0.55 - 1.02 MG/DL 12/16/2018 11:56 AM CDT [facility] SODIUM S/P/B 137 136 - 145 MMOL/L 12/16/2018 11:56 AM CDT [facility] POTASSIUM S/P/B 4.4 3.5 - 5.1 MMOL/L 12/16/2018 11:56 AM [facility] CHLORIDE S/P/B 103 100 - 108 MMOL/L 12/16/2018 11:56 AM T [facility] CO2 27.6 21 - 32 MMOL/L 12/16/2018 11:56 AM [facility] CALCIUM S/P/B 9.4 8.5 - 10.1 MG/DL 12/16/2018 11:56 AM T [facility] BILIRUBIN TOTAL S/P/B 0.7 0.2 - 1.2 MG/DL 12/16/2018 11:56 AM [facility] TOTAL PROTEIN S/P/B 8.6(H) 6.4 - 8.2 G/DL 12/16/2018 11:56 AM [facility] ALBUMIN S/P/B 3.5 3.4 - 5.0 G/DL 12/16/2018 11:56 AM [facility] AST 20 15 - 37 U/L 12/16/2018 11:56 AM [facility] ALT 24 14 - 55 U/L 12/16/2018 11:56 AM [facility] ALKALINE PHOSPHATASE S/P/B 112 50 - 136 U/L 12/16/2018 11:56 AM [facility] ANION GAP 6.4 5 - 15 MMOL/L 12/16/2018 11:56 AM T [facility] BUN CREATININE RATIO 18.3 6 - 26 12/16/2018 11:56 AM [facility] A/G RATIO 0.7(L) 1.0 - 2.0 RATIO 12/16/2018 11:56 AM [facility] EGFR NON-AFR. AMER. 71(L) >90 ML/MIN/1.7 3 M2 12/16/2018 11:56 AM T [facility] EGFR AFR. AMER. 83(L) >90 ML/MIN/1.7 3 M2 12/16/2018 11:56 AM CDT [facility] Comment: NOTE: eGFR is not calculated for patients <18 years of age. This is an estimated GFR (CKD EPI) and should not be used for calculating drug doses. 12/16/2018 11:1 5 AM CDT Jayro Cervantes MD LABORATORY Final Result [facility] [address] [place] [address], [place] [phone] * (ABNORMAL) CBC W/DIFF AUTOMATED (12/16/2018 11:15 AM CDT) WBC 9.2 4.5 - 11.0 x10'3/uL 12/16/2018 11:29 AM CDT [facility] RBC 4.64 4.20 - 5.40 x10'6/uL 12/16/2018 11:29 AM CDT [facility] HGB 13.1 12.0 - 16.0 G/DL 12/16/2018 11:29 AM CDT [facility] HCT 41.4 38.0 - 48.0 % 12/16/2018 11:29 AM CDT [facility] MCV 89.2 80.0 - 94.0 FL 12/16/2018 11:29 AM CDT [facility] MCH 28.2 27.0 - 31.0 PG 12/16/2018 11:29 AM CDT [facility] MCHC 31.6(L) 32.0 - 36.0 G/DL 12/16/2018 11:29 AM CDT [facility] RDW 15.3(H) 11.5 - 14.5 % 12/16/2018 11:29 AM CDT [facility] PLT 346 130 - 400 x10'3/uL 12/16/2018 11:29 AM T [facility] MPV 10.1 9.3 - 12.2 FL 12/16/2018 11:29 AM T [facility] DIFFERENTIAL TYPE AUTOMATED DIFFERENTIAL 12/16/2018 11:29 AM CDT [facility] NEUTROPHILS % 69.1 % 12/16/2018 11:29 AM CDT [facility] LYMPHOCYTES % 21.0 % 12/16/2018 11:29 AM T [facility] MONOCYTES % 7.0 % 12/16/2018 11:29 AM T [facility] EOSINOPHILS 2.3 % 12/16/2018 11:29 AM T [facility] BASOPHILS 0.2 % 12/16/2018 11:29 AM T [facility] IMMATURE GRANS % 0.4 % 12/17/19 19 11:29 AM T [facility] ABS. NEUTROPHILS TOTAL 6.36 1.80 - 7.70 x10'3/uL 12/16/2018 11:29 AM T [facility] ABS. LYMPHOCYTES 1.94 1.00 - 4.80 x10'3/uL 12/16/2018 11:29 AM CDT [facility] ABS. MONOCYTES 0.65 0.24 - 0.86 x10'3/uL 12/16/2018 11:29 AM T [facility] ABS. EOSINOPHILS 0.21 0.04 - 0.36 x10'3/uL 12/16/2018 11:29 AM T [facility] ABS. BASOPHILS 0.02 0.01 - 0.08 x10'3/uL 12/16/2018 11:29 AM CDT [facility] ABS. IMMATURE GRANULOCYTES 0.04 0.00 - 0.49 x10'3/uL 12/16/2018 11:29 AM CDT [facility] 12/16/2018 11:1 5 AM CDT Jayro Cervantes MD LABORATORY Final Result [facility] [address] [place] [address], [place] [phone] * (ABNORMAL) URINALYSIS (12/16/2018 11:04 AM CDT) SPECIMEN TYPE URINE CLEAN CATCH 12/16/2018 11:04 AM CDT [facility] COLOR (U) YELLOW 12/16/2018 11:53 AM CDT [facility] TRANSPARENCY CLEAR 12/16/2018 11:53 AM CDT [facility] SPECIFIC GRAVITY (U) 1.016 1.001 - 1.030 12/16/2018 11:53 AM CDT [facility] U PH 5.0 5.0 - 9.0 12/16/2018 11:53 AM CDT [facility] LEUKOCYTES (U) NEGATIVE NEGATIVE 12/16/2018 11:53 AM CDT [facility] NITRITES NEGATIVE NEGATIVE 12/16/2018 11:53 AM CDT [facility] PROTEIN (U) NEGATIVE <30 MG/DL 12/16/2018 11:53 AM CDT [facility] URINE GLUCOSE NEGATIVE NEGATIVE MG/DL 12/16/2018 11:53 AM CDT [facility] KETONES MG/DL (U) NEGATIVE NEGATIVE MG/DL 12/16/2018 11:53 AM CDT [facility] UROBILINOGEN NEGATIVE NEGATIVE MG/DL 12/16/2018 11:53 AM CDT [facility] BILIRUBIN (U) NEGATIVE NEGATIVE MG/DL 12/16/2018 11:53 AM CDT [facility] BLOOD (U) MODERATE(A) NEGATIVE 12/16/2018 11:53 AM CDT [facility] CULTURE & SENSITIVITY INDICATED? CULTURE IS NOT INDICATED 12/16/2018 11:53 AM CDT [facility] SQUAMOUS EPITHELIALS MODERATE /LPF 12/16/2018 11:53 AM CDT [facility] MUCUS RARE /LPF 12/16/2018 11:53 AM CDT [facility] WBC/HPF <1 <6 /HPF 12/16/2018 11:53 AM CDT [facility] RBC/HPF <1 <6 /HPF 12/16/2018 11:53 AM CDT [facility] URINE SPECIMEN OBTAINED BY CLEAN CATCH PROCEDURE / Unknown 12/16/2018 11:04 AM CDT Jayro Cervantes MD URINE ORDERABLES Final Result [facility] [address] [place] [address], [place] [phone] documented in this encounter Visit Diagnoses Diagnosis [...] pos. 02/201808/31/2018 08/31/2018 07/02/19 21 2:54 AM EPIC TRAINER documented as of this encounter Care Teams Furniture Finisher Helper Relationship Specialty Start Date End Date Justen Gale MD [address] [place], [place] [address] PCP - General FAMILY PRACTICE 08/20/17 Meena Bansal MD [address] [place] [address] [place] Adjunct Philosophy Faculty CARDIOVASCULAR DISEASE 04/24/16 documented as of this encounter
--- OUTSIDE RECORDS SUMMARY | 2024-04-26 07:02 | XMS_ITS | Encounter Summary ---
Author Organization [facility] Address [address] [place] [address]. [place] [address] [place] [address] Care Team Providers Care Engineer Operations And Maintenance Name Role Phone Meena Bansal MD Unavailable Justen Gale MD Primary Care Provider [phone] Reason for Referral * Imaging (Emergency) - Closed Specialty Diagnoses / Procedures Referred By Elyssa benavides Referred To Contact RADIOLOGY Procedures CT LUMB SPINE WO CON Damian Funez PA-C Referral ID Status Reason Start Date Expiration Date Visits Re quested Visits Authorized [id number] Closed 12/09/2018 01/10/2020 1 1 Reason for Visit * Reason Comments Back Pain Encounter Details Date Type Department Care Team (Late st Contact Info) Description 12/09/2018 9:07 PM CDT - 12/10/2018 1:40 AM CDT Emergency [facility] [place] [address] Corby Toledo MD [address] [place] [address] Back Pain Discharge Disposition: Home or Self [...] Sexual Orientation Straight 03/18/2018 3: 01 AM 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 * Low Back Pain Discharge Instructions ([place] Ver[place]an) documented in this encounter Medications at Time [...] Toledo MD - 12/09/2018 10:49 PM CDT [place] EMERGENCY DEPARTMENT ENCOUNTER Chief Complaint Chief Complaint Patient presents with ??? Back Pain History of Present Illness History provided by: Patient liaison inspection laboratory assistant used: No Karly Marques is a 63-year-old female hx arthritis, [...] SPINE WO CON Final Result by User, [id number] (12/09 2230) EXAM: CT LUMBAR SPINE CLINICAL [...] 1 mg (1 mg Intramuscular Given 12/09/18 6623) HYDROmorphone (DILAUDID) injection 0.5 mg (0.5 mg Intramuscular Given 12/10/18 7163) Clinical Impression Back pain (Primary) Discharge Medication List as of 12/10/2018 1:02 AM START taking these medications Details cyclobenzaprine 10 MG tablet Take 1 tablet (10 mg total) by mouth 3 (three) times daily as needed for Muscle Spasms., Starting Mon12/10/2018, Until Mon12/20/2018, Print Class: Print Pharmacy: [facility] #[id number] - [place], [place] - [address] (Ph #: [phone]) lidocaine 5 % Place 1 patch onto the skin daily for 30 days. Remove & Discard patch within 12 hours or as directed by MD, Starting Mon12/10/2018, Until Mon01/09/2019, Print Class: Print Pharmacy: [facility] #[id number] - [place], [place] - [address] (Ph #: [phone]) predniSONE 20 MG tablet Take 2 tablets (40 mg total) by mouth daily for 4 days., Starting Mon12/10/2018, Until Mon12/14/2018, Print Class: Print Pharmacy: [facility] #[id number] - [place], [place] - [address] (Ph #: [phone]) Disposition: Discharge Follow-Up: No follow-up provider specified. I, Martha Gentile, acting as a scribe, am personally taking down the notes in the presence of Dr. Corby Toledo MD. Take no action on this note until reviewed and authenticated by the physician. Corby Toledo MD 12/10/18 1512 * Heaven Smith RN - 12/09/2018 10:30 PM CDT Pt reports they gave me the [place] in the waiting room, I have that at home, it doesn't work, that's why I am here. .HEAVEN SMITH RN * Damian Funez PA-C - 12/09/2018 9:02 PM CDT [place] EMERGENCY DEPARTMENT ENCOUNTER Medical Screening Examination [...] - 99 MG/DL 12/09/2018 9:53 PM CDT [facility] BUN 22(H) 7 - 18 MG/DL 12/09/2018 9:53 PM CDT [facility] CREATININE S/P/B 1.16(H) 0.55 - 1.02 MG/DL 12/09/2018 9:53 PM CDT [facility] SODIUM S/P/B 135(L) 136 - 145 MMOL/L 12/09/2018 9:53 PM CDT [facility] POTASSIUM S/P/B 4.4 3.5 - 5.1 MMOL/L 12/09/2018 9:53 PM T [facility] CHLORIDE S/P/B 102 100 - 108 MMOL/L 12/09/2018 9:53 PM CDT [facility] CO2 28.4 21 - 32 MMOL/L 12/09/2018 9:53 PM CDT [facility] CALCIUM S/P/B 9.6 8.5 - 10.1 MG/DL 12/09/2018 9:53 PM T [facility] BILIRUBIN TOTAL S/P/B 0.4 0.2 - 1.2 MG/DL 12/09/2018 9:53 PM T [facility] TOTAL PROTEIN S/P/B 8.2 6.4 - 8.2 G/DL 12/09/2018 9:53 PM T [facility] ALBUMIN S/P/B 3.3(L) 3.4 - 5.0 G/DL 12/09/2018 9:53 PM T [facility] AST 18 15 - 37 U/L 12/09/2018 9:53 PM T [facility] ALT 25 14 - 55 U/L 12/09/2018 9:53 PM T [facility] ALKALINE PHOSPHATASE S/P/B 108 50 - 136 U/L 12/09/2018 9:53 PM T [facility] ANION GAP 4.6(L) 5 - 15 MMOL/L 12/09/2018 9:53 PM T [facility] BUN CREATININE RATIO 19.0 6 - 26 12/09/2018 9:53 PM T [facility] A/G RATIO 0.7(L) 1.0 - 2.0 RATIO 12/09/2018 9:53 PM CDT [facility] EGFR NON-AFR. AMER. 50(L) >90 ML/MIN/1.7 3 M2 12/09/2018 9:53 PM CDT [facility] EGFR AFR. AMER. 58(L) >90 ML/MIN/1.7 3 M2 12/09/2018 9:53 PM CDT [facility] Comment: NOTE: eGFR is not calculated for patients <18 years of age. This is an estimated GFR (CKD EPI) and should not be used for calculating drug doses. 12/09/2018 9:19 PM CDT us Damian Funez PA-C LABORATORY Final Resul t [facility] [address] [place] [address], * (ABNORMAL) CBC W/DIFF AUTOMATED (12/09/2018 9:19 PM CDT) WBC 8.4 4.5 - 11.0 x10'3/uL 12/09/2018 9:36 PM CDT [facility] RBC 4.56 4.20 - 5.40 x10'6/uL 12/09/2018 9:36 PM CDT [facility] HGB 12.6 12.0 - 16.0 G/DL 12/09/2018 9:36 PM CDT [facility] HCT 40.6 38.0 - 48.0 % 12/09/2018 9:36 PM CDT [facility] MCV 89.0 80.0 - 94.0 FL 12/09/2018 9:36 PM CDT [facility] MCH 27.6 27.0 - 31.0 PG 12/09/2018 9:36 PM CDT [facility] MCHC 31.0(L) 32.0 - 36.0 G/DL 12/09/2018 9:36 PM CDT [facility] RDW 15.1(H) 11.5 - 14.5 % 12/09/2018 9:36 PM CDT [facility] PLT 353 130 - 400 x10'3/uL 12/09/2018 9:36 PM CDT [facility] MPV 9.7 9.3 - 12.2 FL 12/09/2018 9:36 PM CDT [facility] DIFFERENTIAL TYPE AUTOMATED DIFFERENTIAL 12/09/2018 9:36 PM CDT [facility] NEUTROPHILS % 55.4 % 12/09/2018 9:36 PM CDT [facility] LYMPHOCYTES % 31.3 % 12/09/2018 9:36 PM CDT [facility] MONOCYTES % 9.9 % 12/09/2018 9:36 PM CDT [facility] EOSINOPHILS 3.0 % 12/09/2018 9:36 PM CDT [facility] BASOPHILS 0.2 % 12/09/2018 9:36 PM CDT [facility] IMMATURE GRANS % 0.2 % 12/10/19 9:36 PM CDT [facility] ABS. NEUTROPHILS TOTAL 4.62 1.80 - 7.70 x10'3/uL 12/09/2018 9:36 PM CDT [facility] ABS. LYMPHOCYTES 2.61 1.00 - 4.80 x10'3/uL 12/09/2018 9:36 PM CDT [facility] ABS. MONOCYTES 0.83 0.24 - 0.86 x10'3/uL 12/09/2018 9:36 PM CDT [facility] ABS. EOSINOPHILS 0.25 0.04 - 0.36 x10'3/uL 12/09/2018 9:36 PM CDT [facility] ABS. BASOPHILS 0.02 0.01 - 0.08 x10'3/uL 12/09/2018 9:36 PM CDT [facility] ABS. IMMATURE GRANULOCYTES 0.02 0.00 - 0.49 x10'3/uL 12/09/2018 9:36 PM CDT [facility] 12/09/2018 9:19 PM CDT us Damian Funez PA-C LABORATORY Final Resul t [facility] [address] [place] [address], [place] [phone] documented in this encounter Visit Diagnoses Diagnosis [...] pos. 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 [place] [address] [place] [address] PCP - General FAMILY PRACTICE 08/20/17 Meena Bansal MD [address] [place] [address] [place] Motion Picture Film Examiner CARDIOVASCULAR DISEASE 04/24/16 documented as of this encounter
--- OUTSIDE RECORDS SUMMARY | 2024-04-26 07:02 | XMS_ITS | Encounter Summary ---
Author Organization [facility] Address [address] [place] [address]. 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 [address] [address] PCP - General FAMILY PRACTICE 08/20/17 Meena Bansal MD [facility]. [address] [address] [place] Medical Sales Associate CARDIOVASCULAR DISEASE 04/24/16 documented as of this encounter
--- OUTSIDE RECORDS SUMMARY | 2024-04-26 07:02 | XMS_ITS | Encounter Summary ---
Author Organization [facility] Address [address] [place] [address]. 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 02/201808/31/2018 08/31/2018 07/02/19 21 2:54 AM LOG CARRIER OPERATOR COVID-19 Rule Out 09/05/2019 09/05/2019 09/06/2019 9:29 AM CDT documented as of this encounter Care Teams Forestry Fire Aid Relationship Specialty Start Date End Date Justen Gale MD [facility]. [address] [place] [address] PCP - General FAMILY PRACTICE 08/20/17 Meena Bansal MD [facility]. [facility] [address] [place] [address] [place] Fiber Product Cutting Machine Operator CARDIOVASCULAR DISEASE 04/24/16 documented as of this encounter
--- OUTSIDE RECORDS SUMMARY | 2024-04-26 07:02 | XMS_ITS | Encounter Summary ---
Author Organization [facility] Address [address] [place] [address]. [place] [address] [place] [address] Care Team Providers Care Crematory Attendant Name Role Phone Meena Bansal MD Unavailable [phone] Justen Gale MD Primary Care Provider [phone] Reason for Referral * Imaging (Emergency) - Closed Specialty Diagnoses / Procedures Referred By Elyssa t Referred To Contact RADIOLOGY Procedures CTA CHEST Jaswinder Gaytan MD [address] [place] [address] Phone: tel: fax: Referral ID Status Reason Start Date Expiration Date Visits Re quested Visits Authorized [id number] Closed 07/22/2020 08/21/2021 1 1 Reason for Visit * Reason Comments Shortness Of Breath Encounter Details Date Type Department Care Team (Late st Contact Info) Description 07/22/2020 10:32 PM CDT - 07/23/2020 4:31 AM CDT Emergency [facility] Emergency Room [place], [place] [id number] Jaswinder Gaytan MD [address] [place], [place] [address] Shortness Of Breath Discharge Disposition: Home or [...] Sexual Orientation Straight 03/18/2018 3: 01 AM [facility] COVID-19 Exposure Response Date Recorded In the [...] an outpatient is reasonable. Emergency care does not substitute for complete, ongoing, or follow-up care by your primary care physician or economic consultant. Your medication list was reviewed prior [...] such as many narcotic drug combinations and [id number] cold medicines. Your feedback is important to [...] Everywhere. * Sacroiliac Joint Pain Discharge Instructions (Lux[place]bourgish) * Shortness of Breath (Dyspnea) Discharge Instructions ([place]ux[place]bourgish) documented in this encounter Medications at Time [...] encounter of 07/22/20 ECG 12 lead Narrative [address] Test Date: 2020-07-22 Pat Name: MOHSEN MARQUES Department: Room: Gender: Female Clinician Oncology: JOHN : 1955 Requested By: MAXI BENITES Order Number: [id number] Reading MD: Measurements Intervals Kendall Rate: 100 P: 4 GA: 143 QRS: 0 QRSD: 88 T: 48 [...] STUDIES CTA CHEST Final Result by User, [id number] (07/23 0130) Date: 07/23/2020 12:34 AM Exam: CTA CHEST [...] XR CHEST PORTABLE Final Result by User, [email or web address] (07/22 2248) Date: 07/22/2020 10:26 PM Exam: XR [...] I dictated portions of this note using [employer] speech recognition software. Occasional wrong word or sound-alike substitutions may have occurred due to the inherent limitations of voice recognition software. Please read the chart carefully and recognize, using context, where the substitutions may have occurred. If there are any questions, please contact me via [employer] or other HIPAA compliant communication medium for [...] <0.015 <0.045 ng/mL. 07/23/2020 3:17 AM CDT [facility] Comment: HIGH DOSES OF BIOTIN MAY INTERFERE WITH THIS TEST RESULT. CORRELATION TO CLINICAL HISTORY AND PRESENTATION RECOMMENDED. 07/23/2020 2:30 AM CDT us Jaswinder Gaytan MD LABORATORY Final Result [facility] [address] [place] [address], * CTA CHEST (07/23/2020 1:12 AM CDT) [...] SPECIMEN TYPE NASAL 07/23/2020 12:08 AM CDT [facility] INFLUENZA A NEGATIVE NEGATIVE 07/23/2020 12:29 AM CDT [facility] INFLUENZA B NEGATIVE NEGATIVE 07/23/2020 12:29 AM CDT [facility] Comment: Interpretation: Negative [...] ORDERABL ES Final Result Performing Organization Address City/[facility]/ZIP Co de Phone Number [facility] [address] [place] [address], [place] [phone] * LACTIC ACID (07/22/2020 11:38 PM CDT) LACTIC ACID VENOUS 1.3 0.4 - 2.0 MMOL/L 07/23/2020 12:48 AM CDT [facility] 07/22/2020 11:3 8 PM CDT us Jaswinder Gaytan MD LABORATORY Final Result Performing Organization Address City/[facility]/ZIP Co de Phone Number [facility] [address] [place] [address], [place] [phone] * PROCALCITONIN (PCT) (07/22/2020 11:38 PM CDT) Procalcitonin <0.05 <0.5 NG/ML 07/23/2020 12:51 AM CDT [facility] 07/22/2020 11:3 8 PM CDT us Jaswinder Gaytan MD LABORATORY Final Result Performing Organization Address City/[facility]/ZIP Co de Phone Number [facility] [address] [place] [address], [place] [phone] * (ABNORMAL) Blood gas, arterial (07/22/2020 11:35 PM CDT) TIME TEST WAS PERFORMED: 140 07/23/2020 1:44 AM [facility] SAMPLE TYPE ARTERIAL 07/23/2020 1:44 AM [facility] DRAW SITE RT RADIAL 07/23/2020 1:44 AM [facility] ROSALINDA TEST ROSALINDA TEST PERFORMED 07/23/2020 1:44 AM [facility] SMOKING PIPES CLEANER CODE 537,226 07/23/2020 1:44 AM [facility] FIO2 21.0 % 07/23/2020 3:21 AM [facility] PH ARTERIAL 7.39 7.35 - 7.45 07/23/2020 3:21 AM [facility] PCO2 47.1(H) 35 - 45 MM HG 07/23/2020 3:21 AM [facility] PO2 79.8(L) 80 - 100 MM HG 07/23/2020 3:21 AM T [facility] BICARB ARTERIAL 28.3(H) 21 - 28 MEQ/L 07/23/2020 3:21 AM [facility] TCO2 29.7 MEQ/L 07/23/2020 3:21 AM [facility] BE/BASE EXCESS 2.6(H) 0 - 2 MEQ/L 07/23/2020 3:21 AM [facility] HEMOGLOBIN BLOOD GAS 12.4 12.0 - 16.0 G/DL 07/23/2020 3:21 AM [facility] % O2 HEMOGLOBIN ARTERIAL 94.9(L) 95 - 100 % 07/23/2020 3:21 AM [facility] CARBON MONOXIDE 0.8 <3.0 % 3:21 AM [facility] METHEMOGLOBIN 0.6 0.4 - 1.5 % 07/23/2020 3:21 AM CDT [facility] O2 CONTENT 16.6 15 - 22 VOL% 07/23/2020 3:21 AM CDT [facility] AADO2 16.1 07/23/2020 3:21 AM CDT [facility] P/F RATIO (TIDAL VOL CALC) 380 07/23/2020 3:21 AM CDT [facility] 07/22/2020 11:3 5 PM CDT us Jaswinder Gaytan MD LABORATORY Final Result [facility] [address] [place] [address], [place] [phone] * TROPONIN, QUANT (07/22/2020 11:34 PM CDT) Pathologist [facility] TROPONIN I <0.015 <0.045 ng/mL. 07/23/2020 12:25 AM CDT [facility] Comment: HIGH DOSES OF BIOTIN MAY INTERFERE WITH THIS TEST RESULT. CORRELATION TO CLINICAL HISTORY AND PRESENTATION RECOMMENDED. 07/22/2020 11:3 4 PM CDT us Jaswinder Gaytan MD LABORATORY Final Result [facility] [address] [place] [address], [place] [phone] * CULTURE, BACTERIA, BLOOD (07/22/2020 11:34 PM CDT) Pathologist [facility] SPEC DESCRIPTION BLOOD 07/22/2020 11:35 PM CDT [facility] SPECIAL REQUESTS NO SPECIAL REQUEST 07/22/2020 11:35 PM CDT [facility] CULTURE RESULT NO GROWTH 5 DAYS 07/28/2020 9:07 AM CDT [facility] BLOOD SPECIMEN OBTAINED FOR BLOOD CULTURE / Unknown 07/22/2020 11:34 PM CDT 07/23/2020 12:02 AM CDT Jaswinder Gaytan MD MICROBIOLOGY - GENERAL ORDERABL ES Final Result Performing Organization Address City/[facility]/ZIP Co de Phone Number [facility] [address] [place] [address], * CULTURE, BACTERIA, BLOOD (07/22/2020 11:34 PM CDT) SPEC DESCRIPTION BLOOD 07/22/2020 11:35 PM CDT [facility] SPECIAL REQUESTS NO SPECIAL REQUEST 07/22/2020 11:35 PM CDT [facility] CULTURE RESULT NO GROWTH 5 DAYS 07/28/2020 9:07 AM CDT [facility] BLOOD SPECIMEN OBTAINED FOR BLOOD CULTURE / Unknown 07/22/2020 11:34 PM CDT 07/23/2020 12:01 AM CDT Jaswinder Gaytan MD MICROBIOLOGY - GENERAL ORDERABL ES Final Result Performing Organization Address City/[facility]/ZIP Co de Phone Number [facility] [address] [place] [address], * ECG 12 lead (07/22/2020 10:46 PM CDT) 07/22/2020 10:4 6 PM CDT Narrative [facility] - 07/23/2020 8:43 PM CDT ?[facility] ? [address], [place] ? Test Date: ?2020-07-22 Pat Name: ? MOHSEN MARQUES ?Department: ? Room: ? Gender: ? Female ? Clinician Oncology: ?? MJ : ?1955 ? Requested By: MAXI BENITES Order Number: [id number] ? Reading MD: ?? Ramon Byrd ? Measurements Intervals ?Kendall ? Rate: ? 100 ?P: ?4 GA: ? 143 ?QRS: ?0 QRSD: ? 88 ? T: ?48 QT: ? 330 ? QTc: ?427 ? Interpretive Statements SINUS TACHYCARDIA ABNORMAL RHYTHM ECG Compared to ECG 06/25/2020 16:11:39 Sinus rhythm no longer present Procedure Note Ramon Byrd MD - 07/23/[address] [facility] [address] Test Date: 2020-07-22 Pat Name: MOHSEN MARQUES Department: Room: Gender: Female Clinician Oncology: JOHN : 1955 Requested By: MAXI BENITES Order Number: [id number] Reading MD: Ramon Byrd Measurements Intervals Kendall Rate: 100 P: 4 GA: 143 QRS: 0 QRSD: 88 T: 48 QT: 330 QTc: 427 Interpretive Statements SINUS TACHYCARDIA ABNORMAL RHYTHM ECG Compared to ECG 06/25/2020 16:11:39 Sinus rhythm no longer present us Maxi MCKEON ECG ORDERABLES Final Resul t [facility] * XR CHEST PORTABLE (07/22/2020 10:41 [...] 11 <100 PG/ML 07/23/2020 12:55 AM CDT [facility] 07/22/2020 10:2 3 PM CDT us Maxi MCKEON LABORATORY Final Resul t [facility] [address] [place] [address], [place] [phone] * (ABNORMAL) COMPREHENSIVE METABOLIC PANEL (07/22/2020 10:23 PM CDT) [facility] GLUCOSE 201(H) 70 - 99 MG/DL 07/22/2020 11:31 PM CDT [facility] BUN 15 7 - 18 MG/DL 07/22/2020 11:31 PM CDT [facility] CREATININE S/P/B 0.86 0.55 - 1.02 MG/DL 07/22/2020 11:31 PM CDT [facility] SODIUM S/P/B 137 136 - 145 MMOL/L 07/22/2020 11:31 PM CDT [facility] POTASSIUM S/P/B 4.4 3.5 - 5.1 MMOL/L 07/22/2020 11:31 PM CDT [facility] CHLORIDE S/P/B 104 100 - 108 MMOL/L 07/22/2020 11:31 PM CDT [facility] CO2 30.6 21 - 32 MMOL/L 07/22/2020 11:31 PM CDT [facility] CALCIUM S/P/B 9.3 8.5 - 10.1 MG/DL 07/22/2020 11:31 PM CDT [facility] BILIRUBIN TOTAL S/P/B 0.3 0.2 - 1.2 MG/DL 07/22/2020 11:31 PM CDT [facility] Comment: THIS ASSAY IS NOT RECOMMENDED FOR PATIENTS UNDERGOING TREATMENT WITH ELTROMBOPAG DUE TO THE POTENTIAL FOR FALSELY ELEVATED RESULTS. TOTAL PROTEIN S/P/B 8.1 6.4 - 8.2 G/DL 07/22/2020 11:31 PM CDT [facility] ALBUMIN S/P/B 3.2(L) 3.4 - 5.0 G/DL 07/22/2020 11:31 PM CDT [facility] AST 17 15 - 37 U/L 07/22/2020 11:31 PM CDT [facility] ALT 25 14 - 55 U/L 07/22/2020 11:31 PM CDT [facility] ALKALINE PHOSPHATASE S/P/B 93 50 - 136 U/L 07/22/2020 11:31 PM CDT [facility] ANION GAP 2.4(L) 5 - 15 MMOL/L 07/22/2020 11:31 PM CDT [facility] BUN CREATININE RATIO 17.5 6 - 26 07/22/2020 11:31 PM CDT [facility] A/G RATIO 0.7(L) 1.0 - 2.0 RATIO 07/22/2020 11:31 PM CDT [facility] EGFR NON-AFR. AMER. 71(L) >90 ML/MIN/1.7 3 M2 07/22/2020 11:31 PM T [facility] EGFR AFR. AMER. 83(L) >90 ML/MIN/1.7 3 M2 07/22/2020 11:31 PM CDT [facility] Comment: NOTE: eGFR is not calculated for patients <18 years of age. This is an estimated GFR (CKD EPI) and should not be used for calculating drug doses. 07/22/2020 10:2 3 PM CDT us Maxi MCKEON LABORATORY Final Resul t [facility] [address] [place] [address], [place] [phone] * (ABNORMAL) CBC W/DIFF AUTOMATED (07/22/2020 10:23 PM CDT) [facility] Signature WBC 12.2(H) 4.5 - 11.0 x10'3/uL 07/22/2020 11:09 PM CDT [facility] RBC 4.35 4.20 - 5.40 x10'6/uL 07/22/2020 11:09 PM CDT [facility] HGB 12.8 12.0 - 16.0 G/DL 07/22/2020 11:09 PM CDT [facility] HCT 40.3 38.0 - 48.0 % 07/22/2020 11:09 PM CDT [facility] MCV 92.6 81.0 - 99.0 FL 07/22/2020 11:09 PM CDT [facility] MCH 29.4 27.0 - 31.0 PG 07/22/2020 11:09 PM CDT [facility] MCHC 31.8(L) 32.0 - 36.0 G/DL 07/22/2020 11:09 PM CDT [facility] RDW 14.5 11.5 - 14.5 % 07/22/2020 11:09 PM CDT [facility] PLT 287 130 - 400 x10'3/uL 07/22/2020 11:09 PM CDT [facility] MPV 10.1 9.3 - 12.2 FL 07/22/2020 11:09 PM CDT [facility] DIFFERENTIAL TYPE AUTOMATED DIFFERENTIAL 07/22/2020 11:09 PM CDT [facility] NEUTROPHILS % 60.9 % 07/22/2020 11:09 PM CDT [facility] LYMPHOCYTES % 27.5 % 07/22/2020 11:09 PM CDT [facility] MONOCYTES % 7.5 % 07/22/2020 11:09 PM CDT [facility] EOSINOPHILS 3.3 % 07/22/2020 11:09 PM CDT [facility] BASOPHILS 0.5 % 07/22/2020 11:09 PM CDT [facility] IMMATURE GRANS % 0.3 % 07/23/19 11:09 PM CDT [facility] ABS. NEUTROPHILS TOTAL 7.41 1.80 - 7.70 x10'3/uL 07/22/2020 11:09 PM CDT [facility] ABS. LYMPHOCYTES 3.35 1.00 - 4.80 x10'3/uL 07/22/2020 11:09 PM CDT [facility] ABS. MONOCYTES 0.91(H) 0.24 - 0.86 x10'3/uL 07/22/2020 11:09 PM CDT [facility] ABS. EOSINOPHILS 0.40(H) 0.04 - 0.36 x10'3/uL 07/22/2020 11:09 PM CDT [facility] ABS. BASOPHILS 0.06 0.01 - 0.08 x10'3/uL 07/22/2020 11:09 PM CDT [facility] ABS. IMMATURE GRANULOCYTES 0.04 0.00 - 0.49 x10'3/uL 07/22/2020 11:09 PM CDT [facility] 07/22/2020 10:2 3 PM CDT us Maxi MCKEON LABORATORY Final Resul t [facility] [address] [place] [address], [place] [phone] documented in this encounter Visit Diagnoses Diagnosis [...] 1-2 minutes. 2356 (Given - Provider: Radha M Deprow, RN) HYDROcodone-acetaminophen (NORCO) 5-325 MG tablet 1 [...] RTR) documented in this encounter Care Teams Crematory Attendant Relationship Specialty Start Date End Date Justen Gale MD [facility]. [facility] [address] [place] [address] PCP - General FAMILY PRACTICE 08/20/17 Meena Bansal MD [facility]. [facility] [address] [place], [place] [id number] José Luis Security Guard Dispatcher CARDIOVASCULAR DISEASE 04/24/16 documented as of this encounter
--- OUTSIDE RECORDS SUMMARY | 2024-04-26 07:02 | XMS_ITS | Encounter Summary ---
Author Organization [facility] Address [address] [place] [address]. [place] [address] [place] [address] Care Team Providers Care Owner Consulting Engineer Name Role Phone Meena Bansal MD Unavailable [phone] Justen Gale MD Primary Care Provider [phone] Reason for Referral * Imaging (Emergency) - Closed Specialty Diagnoses / Procedures Referred By Elyssa benavides Referred To Contact RADIOLOGY Procedures CTA CHEST Bria Belcher FNP- Referral ID Status Reason Start Date Expiration Date Visits Re quested Visits Authorized [id number] Closed 03/14/2019 04/13/2020 1 1 AND DIE REPAIR Reason for Visit * Reason Comments Foot Pain Encounter Details Date Type Department Care Team (Late st Contact Info) Description 03/14/2019 6:46 PM TOOL AND DIE REPAIR - 03/14/2019 10:30 PM TOOL AND DIE REPAIR Emergency [facility] [place] [address] Nayeli White PA-C [address] [id number] Foot Pain Discharge Disposition: Home or Self [...] Sexual Orientation Straight 03/18/2018 3: 01 AM TOOL AND DIE REPAIR documented as of this encounter Last Filed Vital Signs Vital Sign Reading Time Taken Comments Blood Pressure 117/59 03/14/2019 10:25 PM TOOL AND DIE REPAIR Pulse 76 03/14/2019 10:25 PM TOOL AND DIE REPAIR Temperature 36.7 ??C (98 ??F) 03/14/2019 6:13 PM TOOL AND DIE REPAIR Respiratory Rate 20 03/14/2019 10:25 PM TOOL AND DIE REPAIR Oxygen Saturation 95% 03/14/2019 10:25 PM TOOL AND DIE REPAIR Inhaled Oxygen Concentration - - Weight 132.5 kg (292 lb) 03/14/2019 6:13 PM TOOL AND DIE REPAIR Height 154.9 cm (5' 1 ) 03/14/2019 6:13 PM TOOL AND DIE REPAIR Body Mass Index 55.17 03/14/2019 6:13 PM TOOL AND DIE REPAIR documented in this encounter Functional Status * [...] Nayeli White PA-C - 03/14/2019 10:18 PM TOOL AND DIE REPAIR Continue all chronic home medications. Follow-up with your electronic equipment maint tech for your MRI tomorrow. Follow-up with your primary care provider. AND DIE REPAIR * Attachments The following attachments cannot be sent through Care Everywhere. * Muscle and Bone Pain Discharge Instructions (Ukrainian) documented in this encounter Medications at Time [...] Provider at bedside updating pt and family AND DIE REPAIR * Kimberly Pineda RN - 03/14/2019 9:01 PM CST Pt requesting more pain medication, LINDA White made aware AND DIE REPAIR * Kimberly Pineda RN - 03/14/2019 8:29 PM CST Pt to CT AND DIE REPAIR * Nayeli White PA-C - 03/14/2019 7:47 [...] has continued. She was referred to a electronic equipment maint tech who has seen her as well, and [...] (Pain. Please take with food.). 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 Patient has been given Hiram for pain in the emergency room. Will [...] Disposition: Discharge Follow-Up: Justen Gale MD [address] [address] In 3 days NAYELI WHITE PA-C 03/14/2019 Nayeli White PA-C 03/14/192218 Nayeli White PA-C 05/10/19 0121 Cosigned by Jaswinder Gaytan MD at 05/10/2019 1:36 AM TOOL AND DIE REPAIR AND DIE REPAIR AND DIE REPAIR AND DIE REPAIR AND DIE REPAIR * HUMAIRA Ordaz - 03/14/2019 6:53 PM CST [place], [place] EMERGENCY DEPARTMENT ENCOUNTER Medical Screening Examination 03/14/19 6:53 PM Chief Complaint : Foot Pain HPI : Mohsen Marques is a [...] errors as this chart was documented using [employer], a dictation software. HUMAIRA Ordaz 03/14/19 190 Cosigned by Giuseppe Ramirez MD at 03/15/2019 7:02 AM TOOL AND DIE REPAIR AND DIE REPAIR AND DIE REPAIR * Delio Bender RN - 03/14/2019 6:18 PM CST Patient reports increased pain to left foot, ongoing. Reports pain as sharp and shoot, radiates up to thigh. Is scheduled to have MRI tomorrow of left foot. Has walking boot on. AND DIE REPAIR documented in this encounter Plan of Treatment Not on file documented as of this encounter Procedures Procedure Name Priority Date/Time Associated Diagnosis Comments TROPONIN, QUANT STAT 03/14/2019 9:18 PM TOOL AND DIE REPAIR CTA CHEST STAT 03/14/2019 8:34 PM TOOL AND DIE REPAIR PARTIAL THROMBOPLASTIN TIME,PTT STAT 03/14/2019 7:21 PM TOOL AND DIE REPAIR PROTHROMBIN TIME, VENOUS STAT 03/14/2019 7:21 PM TOOL AND DIE REPAIR COMPREHENSIVE METABOLIC PANEL STAT 03/14/2019 7:21 PM TOOL AND DIE REPAIR D-DIMER, QUANTITATIVE STAT 03/14/2019 7:21 PM TOOL AND DIE REPAIR CBC W/DIFF AUTOMATED STAT 03/14/2019 7:21 PM TOOL AND DIE REPAIR TROPONIN, QUANT STAT 03/14/2019 7:21 PM TOOL AND DIE REPAIR ECG 12-LEAD Routine 03/14/2019 7:17 PM TOOL AND DIE REPAIR documented in this encounter Results * TROPONIN, QUANT (03/14/2019 9:18 PM TOOL AND DIE REPAIR) TROPONIN I <0.015 <0.045 ng/mL. 03/14/2019 9:55 PM TOOL AND DIE REPAIR [facility] Comment: HIGH DOSES OF BIOTIN MAY INTERFERE WITH THIS TEST RESULT. CORRELATION TO CLINICAL HISTORY AND PRESENTATION RECOMMENDED. 03/14/2019 9:18 PM TOOL AND DIE REPAIR us Nayeli White PA-C LABORATORY Final Resul t [facility] [address] [place] [address], [place] [phone] * CTA CHEST (03/14/2019 8:34 PM TOOL AND DIE REPAIR) Anatomical Region Laterality Modality Chest Computed Tomogra phy 03/14/2019 8:50 PM TOOL AND DIE REPAIR Impressions 03/14/2019 8:55 PM TOOL AND DIE REPAIR IMPRESSION: 1. ??No CT evidence of pulmonary embolism. 2. ??Sub-3 mm pulmonary nodule left lower lobe. Interpreted By: Lisa Menon MD, 03/14/2019 8:50 PM Narrative 03/14/2019 8:55 PM TOOL AND DIE REPAIR CTA CHEST: 03/14/2019 8:24 PM CLINICAL INDICATION:: [...] of any osseous destructive lesions. Procedure Note Lias Menon MD - 03/14/2019 CTA CHEST: 03/14/2019 8:24 PM CLINICAL INDICATION:: Chest pain, acute, PE suspected, high pretest probacute chest pain. COMPARISON: 08/20/2017. TECHNIQUE: Computed tomography of the chest, after the administration [id number] contrast according to pulmonary embolism protocol [...] Menon MD, 03/14/2019 8:50 PM Bria Belcher COMMERCIAL FOOD INSTRUCTOR-BC CT Final Res ult * (ABNORMAL) PROTIME/INR, VENOUS (03/14/2019 7:21 PM TOOL AND DIE REPAIR) PROTIME 16.6(H) 9.6 - 12.2 SEC 03/14/2019 8:21 PM TOOL AND DIE REPAIR [facility] INR 1.5 03/14/2019 8:21 PM TOOL AND DIE REPAIR [facility] Comment: Recommended INR Therapeutic Goals: ??2.0-3.0 Routine Therapy ??2.5-3.5 Mechanical Prosthetic Valves (High Risk) ??3.0-4.0 Acute OR (to prevent Systemic Embolism) The INR is used only for patients on stable oral anticoagulant therapy. It makes no significant contribution to the diagnosis or treatment of patients whose Protime is prolonged for other reasons. 03/14/2019 7:21 PM TOOL AND DIE REPAIR [facility] LABORATORY Final Res ult Performing Organization Address City/[facility]/ZIP Co de Phone Number [facility] [address] [place] [address], [place] [phone] * (ABNORMAL) PARTIAL THROMBOPLASTIN TIME,PTT (03/14/2019 7:21 PM TOOL AND DIE REPAIR) PTT 40.2(H) 25.5 - 37.6 SEC 03/14/2019 8:21 PM TOOL AND DIE REPAIR [facility] 03/14/2019 7:21 PM TOOL AND DIE REPAIR [facility]ORY Final Res ult Performing Organization Address [facility] Co de Phone Number [facility] [address] [place] [address], [place] [phone] * D-DIMER, QUANTITATIVE (03/14/2019 7:21 PM TOOL AND DIE REPAIR) D-DIMER <150 0 - 230 D DU ng/mL 03/14/2019 8:21 PM TOOL AND DIE REPAIR [facility] Comment: TESTING PERFORMED ON DE ACL TOP 300 ANALYZER. NOTE: RESULTS OF [...] LIVER CIRRHOSIS OR . 03/14/2019 7:21 PM TOOL AND DIE REPAIR [facility] LAB[facility] Final Res ult [facility] [address] [place] [address], [place] [phone] * TROPONIN, QUANT (03/14/2019 7:21 PM TOOL AND DIE REPAIR) TROPONIN I <0.015 <0.045 ng/mL. 03/14/2019 8:06 PM TOOL AND DIE REPAIR [facility] Comment: HIGH DOSES OF BIOTIN MAY INTERFERE WITH THIS TEST RESULT. CORRELATION TO CLINICAL HISTORY AND PRESENTATION RECOMMENDED. 03/14/2019 7:21 PM TOOL AND DIE REPAIR [facility] LABORATORY Final Res ult Performing Organization Address City/[facility]/ZIP Co de Phone Number [facility] [address] [place] [address], [place] [phone] * (ABNORMAL) COMPREHENSIVE METABOLIC PANEL (03/14/2019 7:21 PM TOOL AND DIE REPAIR) GLUCOSE 216(H) 70 - 99 MG/DL 03/14/2019 8:06 PM [facility] BUN 17 7 - 18 MG/DL 03/14/2019 8:06 PM [facility] CREATININE S/P/B 1.11(H) 0.55 - 1.02 MG/DL 03/14/2019 8:06 PM [facility] SODIUM S/P/B 139 136 - 145 MMOL/L 03/14/2019 8:06 PM [facility] POTASSIUM S/P/B 5.6(H) 3.5 - 5.1 MMOL/L 03/14/2019 8:06 PM [facility] CHLORIDE S/P/B 105 100 - 108 MMOL/L 03/14/2019 8:06 PM [facility] CO2 30.1 21 - 32 MMOL/L 03/14/2019 8:06 PM [facility] CALCIUM S/P/B 9.7 8.5 - 10.1 MG/DL 03/14/2019 8:06 PM [facility] BILIRUBIN TOTAL S/P/B 0.5 0.2 - 1.2 MG/DL 03/14/2019 8:06 PM [facility] TOTAL PROTEIN S/P/B 8.7(H) 6.4 - 8.2 G/DL 03/14/2019 8:06 PM [facility] ALBUMIN S/P/B 3.5 3.4 - 5.0 G/DL 03/14/2019 8:06 PM [facility] AST 23 15 - 37 U/L 03/14/2019 8:06 PM [facility] ALT 26 14 - 55 U/L 03/14/2019 8:06 PM [facility] ALKALINE PHOSPHATASE S/P/B 103 50 - 136 U/L 03/14/2019 8:06 PM [facility] ANION GAP 3.9(L) 5 - 15 MMOL/L 03/14/2019 8:06 PM [facility] BUN CREATININE RATIO 15.3 6 - 26 03/14/2019 8:06 PM [facility] A/G RATIO 0.7(L) 1.0 - 2.0 RATIO 03/14/2019 8:06 PM [facility] EGFR NON-AFR. AMER. 53(L) >90 ML/MIN/1.7 3 M2 03/14/2019 8:06 PM [facility] EGFR AFR. AMER. 62(L) >90 ML/MIN/1.7 3 M2 03/14/2019 8:06 PM [facility] Comment: NOTE: eGFR is not calculated for patients <18 years of age. This is an estimated GFR (CKD EPI) and should not be used for calculating drug doses. 03/14/2019 7:21 PM TOOL AND DIE REPAIR Bria Belcher COMMERCIAL FOOD INSTRUCTOR-BC LABORATORY Final Res ult [facility] [address] [place] [address], [place] [phone] * (ABNORMAL) CBC W/DIFF AUTOMATED (03/14/2019 7:21 PM TOOL AND DIE REPAIR) WBC 11.2(H) 4.5 - 11.0 x10'3/uL 03/14/2019 7:45 PM [facility] RBC 4.64 4.20 - 5.40 x10'6/uL 03/14/2019 7:45 PM [facility] HGB 13.2 12.0 - 16.0 G/DL 03/14/2019 7:45 PM [facility] HCT 42.9 38.0 - 48.0 % 03/14/2019 7:45 PM [facility] MCV 92.5 81.0 - 99.0 FL 03/14/2019 7:45 PM [facility] MCH 28.4 27.0 - 31.0 PG 03/14/2019 7:45 PM [facility] MCHC 30.8(L) 32.0 - 36.0 G/DL 03/14/2019 7:45 PM [facility] RDW 14.0 11.5 - 14.5 % 03/14/2019 7:45 PM [facility] PLT 330 130 - 400 x10'3/uL 03/14/2019 7:45 PM [facility] MPV 10.0 9.3 - 12.2 FL 03/14/2019 7:45 PM [facility] DIFFERENTIAL TYPE AUTOMATED DIFFERENTIAL 03/14/2019 7:45 PM [facility] NEUTROPHILS % 63.4 % 03/14/2019 7:45 PM [facility] LYMPHOCYTES % 25.6 % 03/14/2019 7:45 PM [facility] MONOCYTES % 7.6 % 03/14/2019 7:45 PM [facility] EOSINOPHILS 2.7 % 03/14/2019 7:45 PM [facility] BASOPHILS 0.3 % 03/14/2019 7:45 PM [facility] IMMATURE GRANS % 0.4 % 03/14/20 19 7:45 PM [facility] ABS. NEUTROPHILS TOTAL 7.11 1.80 - 7.70 x10'3/uL 03/14/2019 7:45 PM [facility] ABS. LYMPHOCYTES 2.87 1.00 - 4.80 x10'3/uL 03/14/2019 7:45 PM [facility] ABS. MONOCYTES 0.85 0.24 - 0.86 x10'3/uL 03/14/2019 7:45 PM [facility] ABS. EOSINOPHILS 0.30 0.04 - 0.36 x10'3/uL 03/14/2019 7:45 PM [facility] ABS. BASOPHILS 0.03 0.01 - 0.08 x10'3/uL 03/14/2019 7:45 PM [facility] ABS. IMMATURE GRANULOCYTES 0.04 0.00 - 0.49 x10'3/uL 03/14/2019 7:45 PM [facility] 03/14/2019 7:21 PM TOOL AND DIE REPAIR us Bria Belcher COMMERCIAL FOOD INSTRUCTOR-BC LABORATORY Final Res ult [facility] [address] [place] [facility] [place] [address], * ECG 12 lead (03/14/2019 7:17 PM TOOL AND DIE REPAIR) 03/14/2019 7:17 PM TOOL AND DIE REPAIR Narrative [facility] - 03/14/2019 9:28 PM TOOL AND DIE REPAIR [facility] ? [address] [place] ? Test Date: ?2019-03-14 Pat Name: ? MOHSEN MARQUES ?Department: ? Room: ? EXAM01 Gender: ? Female ? 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 SK : ?1955 ? Requested By: BRIA BELCHER Order Number: [id number] ? Reading : ?? Justen Chaudhari ? Measurements Intervals ?[place] ? Rate: ? 83 ? P: ?49 OH: ? 130 ?QRS: ?20 QRSD: ? 82 ? T: ?52 QT: ? 361 ? QTc: ?425 ? Interpretive Statements SINUS RHYTHM Compared to ECG 08/31/2018 00:25:51 No significant changes AND DIE REPAIR Procedure Note Justen Chaudhari MD - 03/14/[address] 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 Given 03/14/2019 9:37 PM TOOL AND DIE REPAIR 1 tablet hydrocodone-acetaminophen (NORCO) 5-325 MG tablet 2 tablet 2 tablet, Oral, Once, 1 dose, On Valeri 03/14/19 at 1915, Maximum dose of acetaminophen is 4000 mg from all sources in 24 hours. Given 03/14/2019 7:20 PM TOOL AND DIE REPAIR 2 tablets iopamidol (ISOVUE-370) 76 % injection 100 mL 100 mL, Intravenous, IMG once as needed, Contrast, 1 dose, Starting on Valeri 03/14/19 at 203, Until Valeri 03/14/19 at 2033 Given 03/14/2019 8:34 PM TOOL AND DIE REPAIR 100 mLs Right Arm documented in this encounter Active and Recently Administered Medications Times are shown in TOOL AND DIE REPAIR. Scheduled Medication Order 03/12/2019 03/13/2019 03/14/2019 hydrocodone-acetaminophen [...] nares pos. 02/201808/31/2018 08/31/2018 07/02/19 2:54 AM TOOL AND DIE REPAIR documented as of this encounter Care Teams Owner Consulting Engineer Relationship Specialty Start Date End Date Justen Gale MD [address] [address] PCP - General FAMILY PRACTICE 08/20/17 Meena Bansal MD [address] [address] José Luis Pan Cleaner CARDIOVASCULAR DISEASE 04/24/16 documented as of this encounter
--- OUTSIDE RECORDS SUMMARY | 2024-04-26 07:02 | XMS_ITS | Encounter Summary ---
Author Organization [facility] Address [address] [place] [address]. [place] [address] [place] [address] Care Team Providers Care Joint Finisher Name Role Phone Meena Bansal MD Unavailable [phone] Justen Gale MD Primary Care Provider [phone] Encounter Details Date Type Department Care Team [...] Orientation Straight 03/18/2018 3: 01 AM SENIOR APPLICATIONS ANALYST documented as of this encounter Functional Status [...] 02/201808/31/2018 08/31/2018 07/02/19 21 2:54 AM SENIOR APPLICATIONS ANALYST documented as of this encounter Care Teams Joint Finisher Relationship Specialty Start Date End Date [facility] [address] [address] PCP - General FAMILY PRACTICE 08/20/17 Meena Bansal MD [facility] [address] [address] José Luis Mobile Disc Jockey CARDIOVASCULAR DISEASE 04/24/16 documented as of this encounter
--- OUTSIDE RECORDS SUMMARY | 2024-04-26 07:02 | XMS_ITS | Encounter Summary ---
Author Organization [facility] Address [address] [place] [address]. [place] [address] [place] [address] Care Team Providers Care Patient Care Provider Name Role Phone Meena Bansal MD Unavailable [phone] Justen Gale MD Primary Care Provider [phone] Reason for Visit * Reason Comments Leg Pain left Encounter Details Date Type Department Care Team (Late st Contact Info) Description 01/17/2019 12:56 AM CDT - 01/17/2019 3:54 AM CDT Emergency [facility] [place] [address] Jaswinder Gaytan MD [address] [place] [address] Leg Pain (left) Discharge Disposition: Home or [...] Sexual Orientation Straight 03/18/2018 3: 01 AM 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 Your medication list was reviewed prior [...] such as many narcotic drug combinations and [id number]-[id number]-[id number] cold medicines. * Attachments The following attachments cannot be sent through Care Everywhere. * Muscle and Bone Pain Discharge Instructions (Mohawk) documented in this encounter Medications at Time [...] TIBIA+FIBULA LT 2V Final Result by User, [id number] (01/17 222) CLINICAL INDICATION: 63-year-old with diffuse [...] - 99 MG/DL 01/17/2019 2:50 AM CDT [facility] BUN 21(H) 7 - 18 MG/DL 01/17/2019 2:50 AM CDT [facility] CREATININE S/P/B 0.87 0.55 - 1.02 MG/DL 01/17/2019 2:50 AM CDT [facility] SODIUM S/P/B 138 136 - 145 MMOL/L 01/17/2019 2:50 AM CDT [facility] POTASSIUM S/P/B 4.2 3.5 - 5.1 MMOL/L 01/17/2019 2:50 AM CDT [facility] CHLORIDE S/P/B 102 100 - 108 MMOL/L 01/17/2019 2:50 AM CDT [facility] CO2 30.2 21 - 32 MMOL/L 01/17/2019 2:50 AM CDT [facility] CALCIUM S/P/B 9.6 8.5 - 10.1 MG/DL 01/17/2019 2:50 AM T [facility] BILIRUBIN TOTAL S/P/B 0.4 0.2 - 1.2 MG/DL 01/17/2019 2:50 AM T [facility] TOTAL PROTEIN S/P/B 8.2 6.4 - 8.2 G/DL 01/17/2019 2:50 AM T [facility] ALBUMIN S/P/B 3.3(L) 3.4 - 5.0 G/DL 01/17/2019 2:50 AM T [facility] AST 14(L) 15 - 37 U/L 01/17/2019 2:50 AM T [facility] ALT 25 14 - 55 U/L 01/17/2019 2:50 AM T [facility] ALKALINE PHOSPHATASE S/P/B 102 50 - 136 U/L 01/17/2019 2:50 AM T [facility] ANION GAP 5.8 5 - 15 MMOL/L 01/17/2019 2:50 AM T [facility] BUN CREATININE RATIO 24.1 6 - 26 01/17/2019 2:50 AM T [facility] A/G RATIO 0.7(L) 1.0 - 2.0 RATIO 01/17/2019 2:50 AM T [facility] EGFR NON-AFR. AMER. 71(L) >90 ML/MIN/1.7 3 M2 01/17/2019 2:50 AM T [facility] EGFR AFR. AMER. 83(L) >90 ML/MIN/1.7 3 M2 01/17/2019 2:50 AM T [facility] Comment: NOTE: eGFR is not calculated for patients <18 years of age. This is an estimated GFR (CKD EPI) and should not be used for calculating drug doses. 01/17/2019 2:14 AM CDT us Jaswinder Gaytan MD LABORATORY Final Result Performing Organization Address City/[facility] Co de Phone Number [facility] [address] [place] [address], * (ABNORMAL) PARTIAL THROMBOPLASTIN TIME,PTT (01/17/2019 2:14 AM CDT) PTT 41.5(H) 25.5 - 37.6 SEC 01/17/2019 2:36 AM CDT [facility] 01/17/2019 2:14 AM CDT Jaswinder Gaytan MD LABORATORY Final Result Performing Organization Address [facility] Co de Phone Number [facility] [address] [place] [address], * (ABNORMAL) PROTIME/INR, VENOUS (01/17/2019 2:14 AM CDT) PROTIME 23.3(H) 9.6 - 12.2 SEC 01/17/2019 2:36 AM CDT [facility] INR 2.1 01/17/2019 2:36 AM CDT [facility] Comment: Recommended INR Therapeutic Goals: ??2.0-3.0 Routine Therapy ??2.5-3.5 Mechanical Prosthetic Valves (High Risk) ??3.0-4.0 Acute MT (to prevent Systemic Embolism) The INR is used only for patients on stable oral anticoagulant therapy. It makes no significant contribution to the diagnosis or treatment of patients whose Protime is prolonged for other reasons. 01/17/2019 2:14 AM CDT Jaswinder Gaytan MD LABORATORY Final Result [facility] [address] [place] [address], * (ABNORMAL) CBC W/DIFF AUTOMATED (01/17/2019 2:14 AM CDT) WBC 10.9 4.5 - 11.0 x10'3/uL 01/17/2019 2:30 AM CDT [facility] RBC 4.39 4.20 - 5.40 x10'6/uL 01/17/2019 2:30 AM CDT [facility] HGB 12.4 12.0 - 16.0 G/DL 01/17/2019 2:30 AM CDT [facility] HCT 39.7 38.0 - 48.0 % 01/17/2019 2:30 AM CDT [facility] MCV 90.4 81.0 - 99.0 FL 01/17/2019 2:30 AM CDT [facility] MCH 28.2 27.0 - 31.0 PG 01/17/2019 2:30 AM CDT [facility] MCHC 31.2(L) 32.0 - 36.0 G/DL 01/17/2019 2:30 AM CDT [facility] RDW 14.5 11.5 - 14.5 % 01/17/2019 2:30 AM CDT [facility] PLT 343 130 - 400 x10'3/uL 01/17/2019 2:30 AM CDT [facility] MPV 9.6 9.3 - 12.2 FL 01/17/2019 2:30 AM CDT [facility] DIFFERENTIAL TYPE AUTOMATED DIFFERENTIAL 01/17/2019 2:30 AM CDT [facility] NEUTROPHILS % 65.1 % 01/17/2019 2:30 AM CDT [facility] LYMPHOCYTES % 23.4 % 01/17/2019 2:30 AM CDT [facility] MONOCYTES % 8.1 % 01/17/2019 2:30 AM CDT [facility] EOSINOPHILS 2.7 % 01/17/2019 2:30 AM CDT [facility] BASOPHILS 0.3 % 01/17/2019 2:30 AM CDT [facility] IMMATURE GRANS % 0.4 % 01/18/20 19 2:30 AM CDT [facility] ABS. NEUTROPHILS TOTAL 7.08 1.80 - 7.70 x10'3/uL 01/17/2019 2:30 AM CDT [facility] ABS. LYMPHOCYTES 2.54 1.00 - 4.80 x10'3/uL 01/17/2019 2:30 AM CDT [facility] ABS. MONOCYTES 0.88(H) 0.24 - 0.86 x10'3/uL 01/17/2019 2:30 AM CDT [facility] ABS. EOSINOPHILS 0.29 0.04 - 0.36 x10'3/uL 01/17/2019 2:30 AM CDT [facility] ABS. BASOPHILS 0.03 0.01 - 0.08 x10'3/uL 01/17/2019 2:30 AM CDT [facility] ABS. IMMATURE GRANULOCYTES 0.04 0.00 - 0.49 x10'3/uL 01/17/2019 2:30 AM CDT [facility] 01/17/2019 2:14 AM CDT us Jaswinder Gaytan MD LABORATORY Final Result [facility] [address] [place] [address], * XR TIBIA+FIBULA LT 2V (01/17/2019 1:37 [...] pos. 02/201808/31/2018 08/31/2018 07/02/19 21 2:54 AM EVAPORATOR OPERATOR [employer] documented as of this encounter Care Teams Patient Care Provider Relationship Specialty Start Date End Date Justen Gale MD [address] [facility] [address] [place] [address] PCP - General FAMILY PRACTICE 08/20/17 Meena Bansal MD [address] [facility] [address] [place] [address] [employer] CARDIOVASCULAR DISEASE 04/24/16 documented as of this encounter
--- OUTSIDE RECORDS SUMMARY | 2024-04-26 07:02 | XMS_ITS | Encounter Summary ---
Author Organization [facility] Address [address] [place] [address]. [place] [address] [place] [address] Care Team Providers Care Chemical Blender Name Role Phone Meena Bansal MD Unavailable [phone] Gerardo Hoffman MD Primary Care Provider [phone] Reason for Referral * Consultation (Routine) - Closed Specialty Diagnoses / Procedures Referred By Contac t Referred To Contact GASTROENTEROLOGY Diagnoses Abdominal pain Shanthi Mendez MD 3 [facility] [address] [place] [address] Phone: tel: fax: Referral ID Status Reason Start Date Expiration Date Visits Re quested Visits Authorized [id number] Closed 09/11/2018 10/13/2019 1 1 * Surgical (Routine) - Closed Specialty Diagnoses / Procedures Referred By Contac t Referred To Contact Procedures Case request operating room: EGD, COLONOSCOPY Crissy Sheppard MD 3 [facility] Ethan [address] [place] [address] Phone: tel: fax: Referral ID Status Reason Start Date Expiration Date Visits Re quested Visits Authorized [id number] Closed 09/09/2018 10/11/2019 1 1 * (Routine) - Closed Specialty Diagnoses / Procedures Referred By Contac t Referred To Contact Procedures OT eval and treat Jonel Pabon DO 3 [facility] ETHAN [address] [place] [phone] Phone: tel: fax: Referral ID Status Reason Start Date Expiration Date Visits Re quested Visits Authorized [id number] Closed 09/09/2018 10/11/2019 1 1 * (Routine) - Closed Specialty Diagnoses / Procedures Referred By Contac t Referred To Contact Procedures PT eval and treat Jonel Pabon DO [address] [address] Phone: tel: fax: Referral ID Status Reason Start Date Expiration Date Visits Re quested Visits Authorized [id number] Closed 09/09/2018 10/11/2019 1 1 Reason for Visit * Reason Comments Abdominal Pain Vomiting * Auth/Cert Specialty Diagnoses / Procedures Referred By Contac t Referred To Contact Diagnoses Abdominal pain Abdominal pain Referral ID Status Reason Start Date Expiration Date Visits Re quested Visits Authorized [id number] 1 1 Encounter Details Date Type Department Care Team (Late st Contact Info) Description 09/09/2018 12:37 AM CDT - 09/11/2018 5:13 PM CDT Emergency [facility] Med/Surg [address] [place] [address] Colten Reilly MD Cagle, Stephen D, MD 3 [facility] [address] [place] [id number] Abdominal Pain; Vomiting Discharge Disposition: Home or [...] Sexual Orientation Straight 03/18/2018 3: 01 AM GRAVEL WEIGHER documented as of this encounter Last Filed [...] No results for input(s): PH, PCO2, PO2, [id number], BICARBWB, BASEDEFICIT, BASEEXCESS in the [id number] hours. Cultures: Blood: No results found for [...] Component Value Units Date/Time OCCULT BLOOD, FECES [[id number]] Order Status: No result Lab Status: No result Specimen: STOOL CULTURE URINE [[id number]] Collected: 09/09/18 0051 Order Status: Completed Lab Status: In process Updated: 09/09/18 0108 CULTURE URINE [[id number]] Collected: 09/04/18 191 Order Status: Completed Lab Status: Final result Updated: 09/07/18 0933 Specimen: URINE, CLEAN CATCH Spec. Description URINE CLEAN CATCH Special Requests: NO SPECIAL REQUEST Culture Result: -- POLYMICROBIAL GROWTH CONSISTENT WITH NORMAL GENITAL YESENIA. SUSCEPTIBILITIES NOT ROUTINELY PERFORMED. CULTURE STOOL [[id number]] Collected: 08/31/18905 Order Status: Completed Lab Status: Final result Updated: 09/03/18 0839 Specimen: STOOL Spec. Description STOOL Special Requests: NO SPECIAL REQUEST Culture Result: NEGATIVE FOR SHIGA TOXIN 1 AND 2 Culture Result: NO ENTERIC PATHOGENS ISOLATED Culture Result: -- NOTE: STOOL CULTURES ARE ROUTINELY SCREENED FOR SALMONELLA,SHIGELLA,YERSINIA,AEROMONAS,PLESIOMONAS,CAMPYLOBA CTER,E.COLI 0157,OVERGROWTHS OF S.AUREUS,YEAST AND P. AERUGINOSA CRYPTO/GIARDIA AG, EIA STOOL [[id number]] Collected: 08/31/18905 Order Status: Completed Lab Status: Final result Updated: 08/31/18 1443 Specimen: STOOL GIARDIA ANTIGEN: NEGATIVE CRYPTOSPOR. ANTIGEN: NEGATIVE CLOSTRIDIUM DIFFICILE [[id number]] (Abnormal) Collected: 08/31/18905 Order Status: Completed Lab Status: Final result Updated: 08/31/18 1434 Specimen: STOOL MOLECULAR ASSAY -- UNACCEPTABLE SPECIMEN RECEIVED FOR TESTING. ONLY LIQUID STOOLS ARE ACCEPTABLE UNLESS ILEUS IS PRESENT. Comment: Successful Call: CHON called 08/31/2018 02:34 PM to ROOM [id number] ([facility]/[place]) by [id number]. Read Back: Yes CULTURE, BACTERIA, BLOOD [[id number]] Collected: 08/30/18 2216 Order Status: Completed Lab Status: Final result Updated: 09/05/1830 Specimen: BLOOD Spec. Description BLOOD Special Requests: NO SPECIAL REQUEST Culture Result: NO GROWTH 6 DAYS CULTURE, BACTERIA, BLOOD [[id number]] Collected: 08/30/18 2216 Order Status: Completed Lab Status: Final result Updated: 09/05/1830 Specimen: BLOOD Spec. Description BLOOD Special Requests: NO SPECIAL REQUEST Culture Result: NO GROWTH 6 DAYS OCCULT BLOOD, FECES [[id number]] Collected: 08/30/18 2135 Order Status: Completed Lab Status: Final result Updated: 08/30/18 2306 Specimen: STOOL OCCULT BLOOD, FECAL NEGATIVE CULTURE URINE [[id number]] Collected: 08/30/18 1502 Order Status: Completed Lab [...] for nausea -NS at 150 cc/hr -Home Mes[place] -Bowel regimen ordered ?? PE and DVT [...] well controlled tonight with initial dose of Mesquite tablets. Pt able to sleep at intervals. [...] Concerns: None PCP: Gerardo Hoffman Insurance Plan: [facility] Notes: Pt's dtr is paid through [...] No results for input(s): PH, PCO2, PO2, [id number], BICARBWB, BASEDEFICIT, BASEEXCESS in the [id number] hours. Cultures: Blood: No results found for this visit on 09/09/18 (from the past 168 hour(s)). Urine: No results found for this visit on 09/09/18 (from the past 168 hour(s)). Microbiology Results (last 14 days) Procedure Component Value Units Date/Time OCCULT BLOOD, FECES [[id number]] Order Status: No result Lab Status: No result Specimen: STOOL CULTURE URINE [[id number]] Collected: 09/09/18 0051 Order Status: Completed Lab Status: In process Updated: 09/09/18 0108 CULTURE URINE [[id number]] Collected: 09/04/18 1918 Order Status: Completed Lab Status: Final result Updated: 09/07/18 0933 Specimen: URINE, CLEAN CATCH Spec. Description URINE CLEAN CATCH Special Requests: NO SPECIAL REQUEST Culture Result: -- POLYMICROBIAL GROWTH CONSISTENT WITH NORMAL GENITAL YESENIA. SUSCEPTIBILITIES NOT ROUTINELY PERFORMED. CULTURE STOOL [[id number]] Collected: 08/31/18905 Order Status: Completed Lab Status: Final result Updated: 09/03/18 0839 Specimen: STOOL Spec. Description STOOL Special Requests: NO SPECIAL REQUEST Culture Result: NEGATIVE FOR SHIGA TOXIN 1 AND 2 Culture Result: NO ENTERIC PATHOGENS ISOLATED Culture Result: -- NOTE: STOOL CULTURES ARE ROUTINELY SCREENED FOR SALMONELLA,SHIGELLA,YERSINIA,AEROMONAS,PLESIOMONAS,CAMPYLOBA CTER,E.COLI 0157,OVERGROWTHS OF S.AUREUS,YEAST AND P. AERUGINOSA CRYPTO/GIARDIA AG, EIA STOOL [[id number]] Collected: 08/31/18905 Order Status: Completed Lab Status: Final result Updated: 08/31/18 1443 Specimen: STOOL GIARDIA ANTIGEN: NEGATIVE CRYPTOSPOR. ANTIGEN: NEGATIVE CLOSTRIDIUM DIFFICILE [[id number]] (Abnormal) Collected: 08/31/18905 Order Status: Completed Lab Status: Final result Updated: 08/31/18 1434 Specimen: STOOL MOLECULAR ASSAY -- UNACCEPTABLE SPECIMEN RECEIVED FOR TESTING. ONLY LIQUID STOOLS ARE ACCEPTABLE UNLESS ILEUS IS PRESENT. Comment: Successful Call: [id number] called 08/31/2018 02:34 PM to ROOM [id number] ([facility]/[place]) by [id number]. Read Back: Yes CULTURE, BACTERIA, BLOOD [[id number]] Collected: 05/09/19 2216 Order Status: Completed Lab Status: Final result Updated: 09/05/18 0830 Specimen: BLOOD Spec. Description BLOOD Special Requests: NO SPECIAL REQUEST Culture Result: NO GROWTH 6 DAYS CULTURE, BACTERIA, BLOOD [[id number]] Collected: 08/30/18 221 Order Status: Completed Lab Status: Final result Updated: 09/05/18 0830 Specimen: BLOOD Spec. Description BLOOD Special Requests: NO SPECIAL REQUEST Culture Result: NO GROWTH 6 DAYS OCCULT BLOOD, FECES [[id number]] Collected: 08/30/18 2135 Order Status: Completed Lab Status: Final result Updated: 08/30/18 2306 Specimen: STOOL OCCULT BLOOD, FECAL NEGATIVE CULTURE URINE [[id number]] Collected: 08/30/18 1502 Order Status: Completed Lab [...] for nausea -NS at 150 cc/hr -Home Mes[place] and Morphine for breakthrough -Bowel regimen ordered [...] CDT 09/09/18 1100 [facility]CEIVED P.T. EVAL ORDER AND REVIEWED [...] were discussed with the patient and/or family/personal financial service representative. Questions were answered and the patient/family/personal financial service representative verbalized understanding and desires to proceed. * Jonel Pabon DO - 09/09/2018 4:40 AM CDT History and Physical DATE: 09/09/2018 ID: [id number] Karly Marques CC: Abdominal pain HPI: Karly [...] 2018. She also has been seen at [facility], and again evaluated in our ED. [...] file Gets together: Not on file Attends synagogue service: Not on file Active member of [...] ??? TRANSPARENCY 09/09/2018 CLEAR Final ??? Specific [place] (U) 09/09/2018 1.023 1.001 - 1.030 Final [...] for nausea -NS at 150 cc/hr -Home [place] and Morphine for breakthrough -Bowel regimine ordered [...] to several hospitals now. She went to [facility] and a CT scan of the abdomen [...] file Gets together: Not on file Attends synagogue service: Not on file Active member of [...] Sheppard MD - 09/10/2018 6:27 PM CDT [facility] OpNote EGD , COLONOSCOPY Procedure Note Karly Marques 09/09/2018 - 09/10/2018 1450 Procedure(s) (LRB): EGD (N/A) COLONOSCOPY (N/A) Surgeon(s): Crissy Sheppard MD Staff: GI Nurse: Abiola Nur RN porcelain enameling supervisor: Sarah Cobos Anesthesia: General Anesthesiologist: Nehemias Brown MD MAINTENANCE TECHNICIAN 2ND SHIFT: Adriana Arias CRNA Pre-Op Diagnosis: abdominal pain [...] No orders in the log * CRISSY SEHPPARD MD Date: 09/10/2018 Time: 6:28 PM documented [...] CLEAN CATCH COLOR YELLOW TRANSPARENCY CLEAR Specific [place] (U) 1.023 1.001 - 1.030 U PH [...] - 99 mg/dL 09/11/2018 4:39 PM CDT [facility] LAB ORDERS INTERFACE 09/11/2018 4:31 PM CDT us Kirit Stafford MD POCT ORDERABLES - DEVICE Deann l Result [facility] LAB ORDERS INTERFACE US * (ABNORMAL) POCT glucose (09/11/2018 11:35 AM CDT) GLUCOSE POC 137(H) 70 - 99 mg/dL 09/11/2018 11:38 AM CDT [facility] LAB ORDERS INTERFACE 09/11/2018 11:3 5 AM CDT us Kirit Stafford MD POCT ORDERABLES - DEVICE Deann bowman Result [facility] LAB ORDERS INTERFACE US * XR [...] history: Abdominal pain. Comparison: CT 09/04/2018. Technique: Geospatial Applications Developer images of the abdomen were obtained. The [...] history: Abdominal pain. Comparison: CT 09/04/2018. Technique: Geospatial Applications Developer images of the abdomen were obtained. The [...] POCT glucose (09/11/2018 6:52 AM CDT) Pathologist [facility] GLUCOSE POC 188(H) 70 - 99 mg/dL 09/11/2018 8:01 AM CDT [facility] LAB ORDERS INTERFACE 09/11/2018 6:52 AM CDT Kirit Stafford MD POCT ORDERABLES - DEVICE Deann l Result [facility] LAB ORDERS INTERFACE US * (ABNORMAL) CBC W/DIFF AUTOMATED (09/11/2018 5:19 AM CDT) WBC 9.5 4.5 - 11.0 x10'3/uL 09/11/2018 6:09 AM CDT [facility] RBC 3.75(L) 4.20 - 5.40 x10'6/uL 09/11/2018 6:09 AM CDT [facility] HGB 10.5(L) 12.0 - 16.0 G/DL 09/11/2018 6:09 AM CDT [facility] HCT 33.9(L) 38.0 - 48.0 % 09/11/2018 6:09 AM CDT [facility] MCV 90.4 80.0 - 94.0 FL 09/11/2018 6:09 AM CDT [facility] MCH 28.0 27.0 - 31.0 PG 09/11/2018 6:09 AM CDT [facility] MCHC 31.0(L) 32.0 - 36.0 G/DL 09/11/2018 6:09 AM CDT [facility] RDW 14.1 11.5 - 14.5 % 09/11/2018 6:09 AM CDT [facility] PLT 272 130 - 400 x10'3/uL 09/11/2018 6:09 AM CDT [facility] MPV 10.1 9.3 - 12.2 FL 09/11/2018 6:09 AM CDT [facility] DIFFERENTIAL TYPE AUTOMATED DIFFERENTIAL 09/11/2018 6:09 AM CDT [facility] NEUTROPHILS % 62.0 % 09/11/2018 6:09 AM T [facility] LYMPHOCYTES % 25.3 % 09/11/2018 6:09 AM CDT [facility] MONOCYTES % 8.6 % 09/11/2018 6:09 AM CDT [facility] EOSINOPHILS 3.4 % 09/11/2018 6:09 AM CDT [facility] BASOPHILS 0.4 % 09/11/2018 6:09 AM T [facility] IMMATURE GRANS % 0.3 % 09/12/19 6:09 AM CDT [facility] ABS. NEUTROPHILS TOTAL 5.92 1.80 - 7.70 x10'3/uL 09/11/2018 6:09 AM CDT [facility] ABS. LYMPHOCYTES 2.41 1.00 - 4.80 x10'3/uL 09/11/2018 6:09 AM CDT [facility] ABS. MONOCYTES 0.82 0.24 - 0.86 x10'3/uL 09/11/2018 6:09 AM CDT [facility] ABS. EOSINOPHILS 0.32 0.04 - 0.36 x10'3/uL 09/11/2018 6:09 AM CDT [facility] ABS. BASOPHILS 0.04 0.01 - 0.08 x10'3/uL 09/11/2018 6:09 AM CDT [facility] ABS. IMMATURE GRANULOCYTES 0.03 0.00 - 0.49 x10'3/uL 09/11/2018 6:09 AM CDT [facility] 09/11/2018 5:19 AM CDT us Gil Dawson MD LABORATORY Final Result [facility] [address] [place] [address], [place] [phone] * (ABNORMAL) COMPREHENSIVE METABOLIC PANEL (09/11/2018 5:19 AM CDT) [facility] Signature GLUCOSE 190(H) 70 - 99 MG/DL 09/11/2018 6:56 AM CDT [facility] BUN 17 7 - 18 MG/DL 09/11/2018 6:56 AM CDT [facility] CREATININE S/P/B 0.85 0.55 - 1.02 MG/DL 09/11/2018 6:56 AM CDT [facility] SODIUM S/P/B 141 136 - 145 MMOL/L 09/11/2018 6:56 AM CDT [facility] POTASSIUM S/P/B 4.2 3.5 - 5.1 MMOL/L 09/11/2018 6:56 AM T [facility] CHLORIDE S/P/B 109(H) 100 - 108 MMOL/L 09/11/2018 6:56 AM T [facility] CO2 26.6 21 - 32 MMOL/L 09/11/2018 6:56 AM T [facility] CALCIUM S/P/B 8.7 8.5 - 10.1 MG/DL 09/11/2018 6:56 AM T [facility] BILIRUBIN TOTAL S/P/B 0.4 0.2 - 1.2 MG/DL 09/11/2018 6:56 AM T [facility] TOTAL PROTEIN S/P/B 7.0 6.4 - 8.2 G/DL 09/11/2018 6:56 AM T [facility] ALBUMIN S/P/B 2.8(L) 3.4 - 5.0 G/DL 09/11/2018 6:56 AM T [facility] AST 14(L) 15 - 37 U/L 09/11/2018 6:56 AM T [facility] ALT 22 14 - 55 U/L 09/11/2018 6:56 AM T [facility] ALKALINE PHOSPHATASE S/P/B 85 50 - 136 U/L 09/11/2018 6:56 AM T [facility] ANION GAP 9.6 8 - 20 MMOL/L 09/11/2018 6:56 AM T [facility] BUN CREATININE RATIO 20.1 6 - 26 09/11/2018 6:56 AM [facility] A/G RATIO 0.7(L) 1.0 - 2.0 RATIO 09/11/2018 6:56 AM T [facility] EGFR NON-AFR. AMER. 73(L) >90 ML/MIN/1.7 3 M2 09/11/2018 6:56 AM CDT [facility] EGFR AFR. AMER. 85(L) >90 ML/MIN/1.7 3 M2 09/11/2018 6:56 AM CDT [facility] Comment: NOTE: eGFR is not calculated for patients <18 years of age. This is an estimated GFR (CKD EPI) and should not be used for calculating drug doses. 09/11/2018 5:19 AM CDT Gil Dawson MD LABORATORY Final Result Performing Organization Address [facility] Co de Phone Number [facility] [address] [place] [address], [place] [phone] * (ABNORMAL) POCT glucose (09/11/2018 12:13 AM CDT) GLUCOSE POC 221(H) 70 - 99 mg/dL 09/11/2018 12:16 AM CDT [facility] LAB ORDERS INTERFACE 09/11/2018 12:1 3 AM CDT Kirit Stafford MD POCT ORDERABLES - DEVICE Deann l Result Performing Organization Address City/[facility] Co de Phone Number [facility] LAB ORDERS INTERFACE US * (ABNORMAL) POCT glucose (09/10/2018 8:29 PM CDT) GLUCOSE POC 181(H) 70 - 99 mg/dL 09/10/2018 11:04 PM CDT [facility] LAB ORDERS INTERFACE 09/10/2018 8:29 PM CDT Kirit Stafford MD POCT ORDERABLES - DEVICE Deann l Result Performing Organization Address [facility]/ZIP Co de Phone Number [facility] LAB ORDERS INTERFACE US * (ABNORMAL) POCT glucose (09/10/2018 4:19 PM CDT) GLUCOSE POC 114(H) 70 - 99 mg/dL 09/10/2018 4:22 PM CDT [facility] LAB ORDERS INTERFACE 09/10/2018 4:19 PM CDT Kirit Stafford MD POCT ORDERABLES - DEVICE Deann l Result Performing Organization Address City/[facility]/ZIP Co de Phone Number [facility] LAB ORDERS INTERFACE US * (ABNORMAL) POCT glucose (09/10/2018 12:24 PM CDT) GLUCOSE POC 135(H) 70 - 99 mg/dL 09/10/2018 12:27 PM CDT [facility] LAB ORDERS INTERFACE 09/10/2018 12:2 4 PM CDT Kirit Stafford MD POCT ORDERABLES - DEVICE Deann l Result Performing Organization Address [facility] Co de Phone Number [facility] LAB ORDERS INTERFACE US * (ABNORMAL) HEMOGLOBIN, GLYCOSYLATED (09/10/2018 5:57 AM CDT) HGB A1C 7.8(H) 4.2 - 6.3 % 09/10/2018 3:26 PM CDT [facility] Comment: ADA GUIDELINES 2010 5.7 TO 6.4% INCREASED RISK OF DIABETES > OR = 6.5% CONSISTENT WITH DIABETES ESTIMATED AVG GLUCOSE 177 mg/dL 09/10/2018 3:26 PM CDT [facility] 09/10/2018 5:57 AM CDT Shanthi Mendez MD LABORATORY Final Result Performing Organization Address City/[facility] Co de Phone Number [facility] [address] [place] [address], [place] [phone] * (ABNORMAL) CBC W/DIFF AUTOMATED (09/10/2018 5:57 AM CDT) [facility] Signature WBC 7.6 4.5 - 11.0 x10'3/uL 09/10/2018 7:01 AM CDT [facility] RBC 3.93(L) 4.20 - 5.40 x10'6/uL 09/10/2018 7:01 AM T [facility] HGB 10.9(L) 12.0 - 16.0 G/DL 09/10/2018 7:01 AM T [facility] HCT 35.8(L) 38.0 - 48.0 % 09/10/2018 7:01 AM T [facility] MCV 91.1 81.0 - 99.0 FL 09/10/2018 7:01 AM [facility] MCH 27.7 27.0 - 31.0 PG 09/10/2018 7:01 AM T [facility] MCHC 30.4(L) 32.0 - 36.0 G/DL 09/10/2018 7:01 AM T [facility] RDW 13.9 11.5 - 14.5 % 09/10/2018 7:01 AM [facility] PLT 268 130 - 400 x10'3/uL 09/10/2018 7:01 AM [facility] MPV 9.8 9.3 - 12.2 FL 09/10/2018 7:01 AM T [facility] DIFFERENTIAL TYPE AUTOMATED DIFFERENTIAL 09/10/2018 7:01 AM T [facility] NEUTROPHILS % 56.8 % 09/10/2018 7:01 AM [facility] LYMPHOCYTES % 28.9 % 09/10/2018 7:01 AM [facility] MONOCYTES % 8.0 % 09/10/2018 7:01 AM T [facility] EOSINOPHILS 5.5 % 09/10/2018 7:01 AM CDT [facility] BASOPHILS 0.4 % 09/10/2018 7:01 AM CDT [facility] IMMATURE GRANS % 0.4 % 09/11/19 7:01 AM CDT [facility] ABS. NEUTROPHILS TOTAL 4.30 1.80 - 7.70 x10'3/uL 09/10/2018 7:01 AM CDT [facility] ABS. LYMPHOCYTES 2.19 1.00 - 4.80 x10'3/uL 09/10/2018 7:01 AM CDT [facility] ABS. MONOCYTES 0.61 0.24 - 0.86 x10'3/uL 09/10/2018 7:01 AM CDT [facility] ABS. EOSINOPHILS 0.42(H) 0.04 - 0.36 x10'3/uL 09/10/2018 7:01 AM CDT [facility] ABS. BASOPHILS 0.03 0.01 - 0.08 x10'3/uL 09/10/2018 7:01 AM CDT [facility] ABS. IMMATURE GRANULOCYTES 0.03 0.00 - 0.49 x10'3/uL 09/10/2018 7:01 AM T [facility] 09/10/2018 5:57 AM CDT us Gil Dawson MD LABORATORY Final Result [facility] [address] [place] [address], [place] [phone] * (ABNORMAL) COMPREHENSIVE METABOLIC PANEL (09/10/2018 5:57 AM CDT) [facility] Signature GLUCOSE 121(H) 70 - 99 MG/DL 09/10/2018 7:43 AM CDT [facility] BUN 13 7 - 18 MG/DL 09/10/2018 7:43 AM [facility] CREATININE S/P/B 0.64 0.55 - 1.02 MG/DL 09/10/2018 7:43 AM T [facility] SODIUM S/P/B 136 136 - 145 MMOL/L 09/10/2018 7:43 AM T [facility] POTASSIUM S/P/B 4.3 3.5 - 5.1 MMOL/L 09/10/2018 7:43 AM T [facility] CHLORIDE S/P/B 106 100 - 108 MMOL/L 09/10/2018 7:43 AM T [facility] CO2 22.6 21 - 32 MMOL/L 09/10/2018 7:43 AM [facility] CALCIUM S/P/B 8.5 8.5 - 10.1 MG/DL 09/10/2018 7:43 AM T [facility] BILIRUBIN TOTAL S/P/B 0.7 0.2 - 1.2 MG/DL 09/10/2018 7:43 AM T [facility] TOTAL PROTEIN S/P/B 6.8 6.4 - 8.2 G/DL 09/10/2018 7:43 AM T [facility] ALBUMIN S/P/B 2.7(L) 3.4 - 5.0 G/DL 09/10/2018 7:43 AM T [facility] AST 18 15 - 37 U/L 09/10/2018 7:43 AM T [facility] ALT 22 14 - 55 U/L 09/10/2018 7:43 AM T [facility] ALKALINE PHOSPHATASE S/P/B 78 50 - 136 U/L 09/10/2018 7:43 AM T [facility] ANION GAP 11.7 8 - 20 MMOL/L 09/10/2018 7:43 AM CDT [facility] BUN CREATININE RATIO 20.3 6 - 26 09/10/2018 7:43 AM T [facility] A/G RATIO 0.7(L) 1.0 - 2.0 RATIO 09/10/2018 7:43 AM T [facility] EGFR NON-AFR. AMER. >90 >90 ML/MIN/1.7 3 M2 09/10/2018 7:43 AM CDT [facility] EGFR AFR. AMER. >90 >90 ML/MIN/1.7 3 M2 09/10/2018 7:43 AM T [facility] Comment: NOTE: eGFR is not calculated for patients <18 years of age. This is an estimated GFR (CKD EPI) and should not be used for calculating drug doses. 09/10/2018 5:57 AM CDT Jonel Pabon DO LABORATORY Final Result Performing Organization Address City/[facility]/ZIP Co de Phone Number [facility] [address] [place] [address], [place] [phone] * (ABNORMAL) POCT glucose (09/10/2018 5:37 AM CDT) GLUCOSE POC 143(H) 70 - 99 mg/dL 09/10/2018 7:20 AM CDT [facility] [facility]FACE 09/10/2018 5:37 AM CDT Kirit Stafford MD POCT ORDERABLES - DEVICE Deann l Result [facility] ORDERS INTERFACE US * (ABNORMAL) POCT glucose (09/09/2018 9:55 PM CDT) GLUCOSE POC 127(H) 70 - 99 mg/dL 09/09/2018 10:00 PM CDT [facility] ORDERS INTERFACE 09/09/2018 9:55 PM CDT Kirit Stafford MD POCT ORDERABLES - DEVICE Deann l Result Performing Organization Address [facility] Co de Phone Number [facility] ORDERS INTERFACE US * (ABNORMAL) POCT glucose (09/09/2018 5:18 PM CDT) GLUCOSE POC 122(H) 70 - 99 mg/dL 09/09/2018 5:21 PM CDT [facility] ORDERS INTERFACE 09/09/2018 5:18 PM CDT Kirit Stafford MD POCT ORDERABLES - DEVICE Deann l Result Performing Organization Address [facility] Co de Phone Number [facility] ORDERS INTERFACE US * (ABNORMAL) POCT glucose (09/09/2018 12:02 PM CDT) GLUCOSE POC 146(H) 70 - 99 mg/dL 09/09/2018 3:59 PM CDT [facility] ORDERS INTERFACE 09/09/2018 12:0 2 PM CDT Kirit Stafford MD POCT ORDERABLES - DEVICE Deann l Result Performing Organization Address [facility] Co de Phone Number [facility] ORDERS INTERFACE US * (ABNORMAL) POCT glucose (09/09/2018 6:28 AM CDT) GLUCOSE POC 154(H) 70 - 99 mg/dL 09/09/2018 6:31 AM CDT [facility] ORDERS INTERFACE 09/09/2018 6:28 AM CDT Kirit Stafford MD POCT ORDERABLES - DEVICE Deann l Result Performing Organization Address [facility]/ZIP Co de Phone Number [facility] ORDERS INTERFACE US * CULTURE URINE (09/09/2018 12:51 AM CDT) SPEC DESCRIPTION URINE CLEAN CATCH 09/09/2018 1:08 AM CDT [facility] SPECIAL REQUESTS NO SPECIAL REQUEST 09/09/2018 1:08 AM CDT [facility] CULTURE RESULT POLYMICROBIAL GROWTH CONSISTENT WITH NORMAL GENITAL YESENIA. ?? SUSCEPTIBILITIES NOT ROUTINELY PERFORMED. 09/11/2018 6:58 AM CDT [facility] URINE SPECIMEN OBTAINED BY CLEAN CATCH PROCEDURE / Unknown 09/09/2018 12:51 AM CDT 09/09/2018 1:07 AM CDT us Colten Reilly MD MICROBIOLOGY - GENERAL ORDERABLE S Final Result [facility] [address] [place] [address], * (ABNORMAL) URINALYSIS (09/09/2018 12:50 AM CDT) SPECIMEN TYPE URINE CLEAN CATCH 09/09/2018 12:51 AM CDT [facility] COLOR (U) YELLOW 09/09/2018 1:07 AM CDT [facility] TRANSPARENCY CLEAR 09/09/2018 1:07 AM CDT [facility] SPECIFIC GRAVITY (U) 1.023 1.001 - 1.030 09/09/2018 1:07 AM CDT [facility] U PH 5.0 5.0 - 9.0 09/09/2018 1:07 AM CDT [facility] LEUKOCYTES (U) MODERATE(A) NEGATIVE 9 1:07 AM CDT [facility] NITRITES NEGATIVE NEGATIVE 09/09/2018 1:07 AM CDT [facility] PROTEIN (U) NEGATIVE <30 MG/DL 09/09/2018 1:07 AM CDT [facility] URINE GLUCOSE NEGATIVE NEGATIVE MG/DL 09/09/2018 1:07 AM CDT [facility] KETONES MG/DL (U) NEGATIVE NEGATIVE MG/DL 09/09/2018 1:07 AM CDT [facility] UROBILINOGEN NEGATIVE NEGATIVE MG/DL 09/09/2018 1:07 AM CDT [facility] BILIRUBIN (U) NEGATIVE NEGATIVE MG/DL 09/09/2018 1:07 AM CDT [facility] BLOOD (U) MODERATE(A) NEGATIVE 09/09/2018 1:07 AM T [facility] CULTURE & SENSITIVITY INDICATED? SPECIMEN SETUP FOR CULTURE 09/09/2018 1:07 AM T [facility] SQUAMOUS EPITHELIALS FEW /LPF 09/09/2018 1:07 AM CDT [facility] MUCUS RARE /LPF 09/09/2018 1:07 AM T [facility] WBC/HPF 22(H) <6 /HPF 09/09/2018 1:07 AM CDT [facility] RBC/HPF 28(H) <6 /HPF 09/09/2018 1:07 AM T [facility] URINE SPECIMEN OBTAINED BY CLEAN CATCH PROCEDURE / Unknown 09/09/2018 12:50 AM CDT us Colten Reilly MD URINE ORDERABLES Final Result [facility] [address] [place] [address], [place] [phone] * LIPASE (09/09/2018 12:50 AM CDT) LIPASE 156 73 - 393 UNITS/L 09/09/2018 1:30 AM CDT [facility] 09/09/2018 12:5 0 AM CDT us Colten Reilly MD LABORATORY Final Result [facility] [address] [place] [address], [place] [phone] * (ABNORMAL) COMPREHENSIVE METABOLIC PANEL (09/09/2018 12:50 AM CDT) Pathologist [facility] GLUCOSE 191(H) 70 - 99 MG/DL 09/09/2018 1:30 AM CDT [facility] BUN 20(H) 7 - 18 MG/DL 09/09/2018 1:30 AM CDT [facility] CREATININE S/P/B 0.93 0.55 - 1.02 MG/DL 09/09/2018 1:30 AM CDT [facility] SODIUM S/P/B 135(L) 136 - 145 MMOL/L 09/09/2018 1:30 AM CDT [facility] POTASSIUM S/P/B 4.2 3.5 - 5.1 MMOL/L 09/09/2018 1:30 AM CDT [facility] CHLORIDE S/P/B 102 100 - 108 MMOL/L 09/09/2018 1:30 AM CDT [facility] CO2 28.7 21 - 32 MMOL/L 09/09/2018 1:30 AM CDT [facility] CALCIUM S/P/B 9.4 8.5 - 10.1 MG/DL 09/09/2018 1:30 AM CDT [facility] BILIRUBIN TOTAL S/P/B 0.4 0.2 - 1.2 MG/DL 09/09/2018 1:30 AM CDT [facility] TOTAL PROTEIN S/P/B 9.0(H) 6.4 - 8.2 G/DL 09/09/2018 1:30 AM T [facility] ALBUMIN S/P/B 3.6 3.4 - 5.0 G/DL 09/09/2018 1:30 AM T [facility] AST 20 15 - 37 U/L 09/09/2018 1:30 AM T [facility] ALT 26 14 - 55 U/L 09/09/2018 1:30 AM T [facility] ALKALINE PHOSPHATASE S/P/B 102 50 - 136 U/L 09/09/2018 1:30 AM T [facility] ANION GAP 8.5 8 - 20 MMOL/L 09/09/2018 1:30 AM T [facility] BUN CREATININE RATIO 21.6 6 - 26 09/09/2018 1:30 AM [facility] A/G RATIO 0.7(L) 1.0 - 2.0 RATIO 09/09/2018 1:30 AM [facility] EGFR NON-AFR. AMER. 66(L) >90 ML/MIN/1.7 3 M2 09/09/2018 1:30 AM [facility] EGFR AFR. AMER. 76(L) >90 ML/MIN/1.7 3 M2 09/09/2018 1:30 AM [facility] Comment: NOTE: eGFR is not calculated for patients <18 years of age. This is an estimated GFR (CKD EPI) and should not be used for calculating drug doses. 09/09/2018 12:5 0 AM CDT us Colten Reilly MD LABORATORY Final Result [facility] [address] [place] [address], [place] [phone] * (ABNORMAL) CBC W/DIFF AUTOMATED (09/09/2018 12:50 AM CDT) WBC 12.5(H) 4.5 - 11.0 x10'3/uL 09/09/2018 1:16 AM CDT [facility] RBC 4.84 4.20 - 5.40 x10'6/uL 09/09/2018 1:16 AM CDT [facility] HGB 13.5 12.0 - 16.0 G/DL 09/09/2018 1:16 AM CDT [facility] HCT 42.7 38.0 - 48.0 % 09/09/2018 1:16 AM CDT [facility] MCV 88.2 80.0 - 94.0 FL 09/09/2018 1:16 AM CDT [facility] MCH 27.9 27.0 - 31.0 PG 09/09/2018 1:16 AM CDT [facility] MCHC 31.6(L) 32.0 - 36.0 G/DL 09/09/2018 1:16 AM CDT [facility] RDW 13.8 11.5 - 14.5 % 09/09/2018 1:16 AM CDT [facility] PLT 383 130 - 400 x10'3/uL 09/09/2018 1:16 AM CDT [facility] MPV 9.7 9.3 - 12.2 FL 09/09/2018 1:16 AM CDT [facility] DIFFERENTIAL TYPE MANUAL DIFFERENTIAL 09/09/2018 1:54 AM CDT [facility] SEG NEUTROPHILS 60 % 9 1:54 AM CDT [facility] LYMPHOCYTES 23 % 09/09/2018 1:54 AM CDT [facility] MONOCYTES 13 % 09/09/2018 1:54 AM CDT [facility] EOSINOPHILS 3 % 09/09/2018 1:54 AM CDT [facility] MYELOCYTES 1 % 09/09/2018 1:54 AM CDT [facility] ABS. NEUTROPHILS CALCULATED 7.50 1.80 - 7.70 x10'3/uL 09/09/2018 1:54 AM CDT [facility] ABS.LYMPHOCYTES CALCULATED 2.88 1.00 - 4.80 x10'3/uL 09/09/2018 1:54 AM CDT [facility] ABS. MONOCYTES CALCULATED 1.63(H) 0.24 - 0.86 x10'3/uL 09/09/2018 1:54 AM CDT [facility] ABS. EOSINOPHIL CALCULATED 0.38(H) 0.04 - 0.36 x10'3/uL 09/09/2018 1:54 AM CDT [facility] ABS. MYELOCYTES 0.13(H) 0.00 x10'3/uL 09/09/2018 1:54 AM T [facility] RBC MORPHOLOGY RBC MORPHOLOGY APPEARS NORMAL. SLIDE REVIEWED. 09/09/2018 1:54 AM CDT [facility] PLT EST. ADEQUATE 09/09/2018 1:54 AM T [facility] 09/09/2018 12:5 0 AM CDT us Colten Reilly MD LABORATORY Final Result [facility] [address] [place] [address], [place] [phone] documented in this encounter Visit Diagnoses Diagnosis [...] food HAZARDOUS MEDICATION, MED STORED in Med1 Any+Timesxis-Patient Specific Bin , Patient's Own Exemastane (aromasin) [...] Call Physician] 1151 (Not Given - Provider: lAbert Gaxiola RN - Reason: Order parameters not [...] pos. 02/201808/31/2018 08/31/2018 07/02/19 21 2:54 AM GRAVEL WEIGHER documented as of this encounter Care Teams Chemical Blender Relationship Specialty Start Date End Date Gerardo Hoffman MD [address] [id number] PCP - General FAMILY PRACTICE 08/20/17 Meena Bansal MD [address] [facility] [address] [place] [address] [place] Quality Liaison CARDIOVASCULAR DISEASE 04/24/16 documented as of this encounter
--- OUTSIDE RECORDS SUMMARY | 2024-04-26 07:03 | XMS_ITS | Encounter Summary ---
Author Organization [facility] Address [address] [place] [address]. [place] [address] [place] [address] Care Team Providers Care Orthopedic Specialist Name Role Phone Meena Bansal MD Unavailable [phone] Justen Gale MD Primary Care Provider [phone] Reason for Visit * Reason Comments Knee Pain Encounter Details Date Type Department Care Team (Late st Contact Info) Description 08/28/2017 9:15 PM CDT - 08/28/2017 11:09 PM CDT Emergency [facility] Emergency Room [place], [place] [id number] Jimmie Navarro, [address] [facility] [address] [address] Knee Pain Discharge Disposition: Home or Self [...] Sexual Orientation Straight 03/18/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 If you are overweight, ask a aircraft parts assembler for a weight loss plan. Weight loss [...] very bad. Where can I learn more? [place] [employer] http://orthoinfo.aaos.org/topic.cfm?bbbvi=h91714 Arthritis Foundation http://www.arthritis.org/conditions-treatments/disease-center/osteoarthritis/ National [place] of Arthritis and Musculoskeletal and Skin Diseases http://www.niams.nih.gov/Health_Info/Osteoarthritis/osteoarthritis_ff.pdf National [place] of [facility] ? Senior Health http://nihseniorhealth.gov/osteoarthritis/whatisosteoarthritis/01.html Last Reviewed Date [...] for you. Copyright Copyright ?? 2018 [employer] and its affiliates [...] feel worse. Associated symptoms: No fever. 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 Patient's been to pain clinic [...] Occurrence Comments ?? Mastectomy (SHX3) ?? section (FOF3291) ?? Total knee arthroplasty (NYM664) ?? Hernia repair (SHX51) ?? Cholecystectomy (SHX55) [...] seconds. 2200 (Given - Provid er: Fernando Lnid RN) documented in this encounter Additional Health Concerns Infection Onset Date Last Indicated Resolved Time MRSA Comment:mrsa nares pos. 02/201802/03/2017 02/03/2017 09/01/19 19 8:40 AM CDT documented as of this encounter Care Teams Orthopedic Specialist Relationship Specialty Start Date End Date Justen Gale MD [address] [address] PCP - General FAMILY PRACTICE 08/20/17 Meena Bansal MD [facility]. [address] [address] [place] Welder Apprentice Combination CARDIOVASCULAR DISEASE 04/24/16 documented as of this encounter
--- OUTSIDE RECORDS SUMMARY | 2024-04-26 07:03 | XMS_ITS | Encounter Summary ---
Author Organization [facility] Address [address] [place] [address]. [place] [address] [place] [address] Care Team Providers Care Water Vessel Captain Name Role Phone Lavonne Ram MD Primary Care Provider [phone] Meena Bansal MD Unavailable [phone] , Generic Conversion Primary Care Provider Unavailable Encounter Details Date Type Department Care Team (Late st Contact Info) Description 08/17/2011 Abstract [place] [address] Hannah Yi MD [address] [place] [id number] Social History Tobacco Use Types Packs/Day Years Used Date Smoking Tobacco: Never Assessed Comments Unknown Sex and Gender Information Value Date Recorded Sex Assigned at Female 09/06/2020 12:50 AM CDT Legal Sex Female 10:47 AM CDT Gender Identity Female 09/06/2020 12:50 AM CDT Sexual Orientation Straight 03/18/2018 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/HCC) Major depressive disorder, single episode, moderate documented in this encounter Care Teams Water Vessel Captain Relationship Specialty Start Date End Date Lavonen Ram MD [address] [address] PCP - General FAMILY PRACTICE 04/24/16 08/19/17 Johnathon Ku MD PCP - General 08/17/11 04/23/16 Meena Bansal MD [address] [address] [place] Upkeep Mechanic CARDIOVASCULAR DISEASE 04/24/16 documented as of this encounter
--- OUTSIDE RECORDS SUMMARY | 2024-04-26 07:03 | XMS_ITS | Encounter Summary ---
Author Organization [facility] Address [address] [place] [address]. [place] [address] [place] [address] Care Team Providers Care Section Laborer Name Role Phone Lavonne Ram MD Primary Care Provider [phone] Meena Bansal MD Unavailable [phone] Encounter Details Date Type Department Care Team ([facility] Contact Info) Description 02/25/2017 [place] [address] , Generic Conversion, Social History Tobacco Use Types Packs/Day Years Used Date Smoking Tobacco: Never Assessed Comments Unknown Sex and Gender Information Value Date Recorded Sex Assigned at Female 09/06/2020 12:50 AM CDT Legal Sex Female 10:47 AM CDT Gender Identity Female 09/06/2020 12:50 AM CDT Sexual Orientation Straight 03/18/2018 3: 01 AM 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 02/201802/03/2017 02/03/2017 09/01/19 19 8:40 AM CDT documented as of this encounter Care Teams Section Laborer Relationship Specialty Start Date End Date Lavonne Ram MD [address] [address] PCP - General FAMILY PRACTICE 04/24/16 08/19/17 Meena Bansal MD [facility]. [address] [address] [place] Finish Sander CARDIOVASCULAR DISEASE 04/24/16 documented as of this encounter
--- OUTSIDE RECORDS SUMMARY | 2024-04-26 07:03 | XMS_ITS | Encounter Summary ---
Author Organization [facility] Address [address] [place] [address]. [place] [address] [place] [address] Care Team Providers Care Fire Prevention Captain Name Role Phone Meena Bansal MD Unavailable [phone] Gerardo Hoffman MD Primary Care Provider [phone] Reason for Referral * Imaging (Emergency) - Closed Specialty Diagnoses / Procedures Referred By Elyssa benavides Referred To Contact RADIOLOGY Procedures CT ABD+PEL W IV CON ONLY Leah Mackay NP Phone: tel: fax: Referral ID Status Reason Start Date Expiration Date Visits Re quested Visits Authorized [id number] Closed 08/30/2018 10/01/2019 1 1 Reason for Visit * Reason Comments Abdominal Pain * Auth/Cert Specialty Diagnoses / Procedures Referred By Elyssa benavides Referred To Contact Diagnoses Periumbilical abdominal pain Nausea vomiting and diarrhea Abdominal pain Referral ID Status Reason Start Date Expiration Date Visits Re quested Visits Authorized [id number] 1 1 Encounter Details Date Type Department Care Team (Late st Contact Info) Description 08/30/2018 2:32 PM CDT - 08/31/2018 4:12 PM CDT Emergency [facility] Med/Surg 3rd [place] [address] Leah Mackay, PUBLIC WORKS LABORER [facility] [address] [place] [address] Eduardo Abel, [address] [place] [address] Abdominal Pain Discharge Disposition: Home or Self [...] Sexual Orientation Straight 03/18/2018 3: 01 AM POWDER COATER documented as of this encounter Last Filed [...] 08/31/2018 1:22 PM CDT HOSPITAL DISCHARGE SUMMARY [facility] 08/31/18 Patient ID Mohsen Marques, [...] of neoplasm so this value maynot be customer sales representative. She was encouraged to seek outpatient colonoscopy. PCP Follow-Up Needed For: Further Work-up of Possible rectal mass Pending/Outpatient Studies Stool culture Follow-up Appts PUBLIC WORKS LABORER Pili Elkins on 09/07/18 at 1pm Discharge [...] CLEAN CATCH COLOR YELLOW TRANSPARENCY CLEAR Specific [place] (U) 1.023 1.001 - 1.030 U PH [...] [address] Test Date: 2018-08-31 Pat Name: MOHSEN MARQUES Department: Room: [facility] Gender: Female Endoscopy Support Specialist: MIKE : 1955 Requested By: EDUARDO ABEL Order Number: [id number] Reading MD: Noe Cowan Measurements Intervals [place] Rate: 71 P: 42 NC: 126 QRS: 4 QRSD: 84 T: 45 [...] sent through Care Everywhere. * Ondansetron, ADULT (Pakistani) * Acute Abdomen (Belly Pain) Discharge Instructions, Adult (Pakistani) documented in this encounter Medications at Time [...] Concerns: None PCP: Gerardo Hoffman Insurance Plan: [facility] Notes: Pt's dtr is paid [...] PM CDTAssociated Problem(s): Type 2 diabetes mellitus ([facility] HHS/HCC) Chronic. Controlled. -continue home insulin regimen of lantus 50 units q am -lispro 20 units with breakfast and lunch. 22 units with dinner. * Nate Dawson MD - 08/30/2018 9:57 PM CDTAssociated Problem(s): High blood pressure Chronic. Controlled. -continue home medications * Nate Dawson MD - 08/30/2018 9:55 PM CDTAssociated Problem(s): Malignant neoplasm of upper-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 ([facility] HHS/HCC) S/p masectomy. -continue exemestane * Nate Dawson MD - 08/30/2018 9:55 PM CDTAssociated Problem(s): Pulmonary embolism ([facility]) History of PE and DVT. [...] file Gets together: Not on file Attends pentecostal service: Not on file Active member of [...] No results for input(s): PH, PCO2, PO2, [id number], BICARBWB, BASEDEFICIT, BASEEXCESS in the alea652 hours. Cultures: Blood: No results found for this visit on 08/30/18 (from the past 168 hour(s)). Urine: No results found for this visit on 08/30/18 (from the past 168 hour(s)). Cardiac: No results found for this visit on 08/30/18. Radiology studies: CT ABD+PEL W IV CON ONLY Final Result by User, [id number] (08/30 7619) EXAMINATION: CT abdomen/pelvis with contrast HISTORY: Nausea, [...] identified. CHEST PORTABLE Final Result by User, [id number] (08/30 4428) Date: 08/30/2018 4:13 PM Exam: XR CHEST [...] on rectal exam Respiratory PE (pulmonary thromboembolism) ([facility]/HCC) Assessment & Plan History of PE and DVT. -continue xarelto Circulatory Hypertension Assessment & Plan Chronic. Controlled. -continue home medications Endocrine Type 2 diabetes mellitus ([facility]) Assessment & Plan Chronic. Controlled. -continue home insulin regimen of lantus 50 units q am -lispro 20 units with breakfast and lunch. 22 units with dinner. Other Bilateral malignant neoplasm of breast in female ([facility]) Assessment & Plan S/p masectomy. [...] CLEAN CATCH COLOR YELLOW TRANSPARENCY CLEAR Specific [place] (U) 1.023 1.001 - 1.030 U PH [...] IV CON ONLY Final Result by User, [id number] (08/30 1711) EXAMINATION: CT abdomen/pelvis with contrast HISTORY: Nausea, [...] identified. CHEST PORTABLE Final Result by User, [id number] (08/30 163) Date: 08/30/2018 4:13 PM Exam: [...] HUMAIRA Holder - 08/30/2018 2:14 PM CDT [place], [place] EMERGENCY DEPARTMENT ENCOUNTER Medical Screening Examination [...] days ago. Reports V/D. Was seen at [facility] yesterday for same c/o, had labs and [...] - 99 mg/dL 08/31/2018 12:29 PM CDT [facility] ORDERS INTERFACE 08/31/2018 12:2 6 PM CDT us Eduardo Abel DO POCT ORDERABLES - DEVICE Fin al Result [facility] ORDERS INTERFACE US * (ABNORMAL) CLOSTRIDIUM DIFFICILE (08/31/2018 9:06 AM CDT) MOLECULAR ASSAY UNACCEPTABLE SPECIMEN RECEIVED FOR TESTING. ??ONLY LIQUID STOOLS ARE ACCEPTABLE UNLESS ILEUS IS PRESENT. (A) NEGATIVE 08/31/2018 2:32 PM CDT [facility] Comment: Successful Call: [id number] called 08/31/2018 02:34 PM to ROOM [id number] ([facility]/[place]) by [id number]. Read Back: Yes STOOL SPECIMEN / Unknown 08/31/2018 9:06 AM CDT Naet Dawson MD BODY FLUIDS AND STOOLS ORDERAB LES Final Result Performing Organization Address City/[facility]/ZIP Co de Phone Number [facility] [address] [place] [address], [place] [phone] * CRYPTO/GIARDIA AG, EIA STOOL (08/31/2018 9:06 AM CDT) Pathologist [facility] GIARDIA ANTIGEN (STOOL) NEGATIVE NEGATIVE 08/31/2018 2:43 PM CDT [facility] CRYPTOSPOR AG (STOOL) NEGATIVE NEGATIVE 08/31/2018 2:43 PM CDT [facility] STOOL SPECIMEN / Unknown 08/31/2018 9:06 AM CDT Nate Dawson MD BODY FLUIDS AND STOOLS ORDERAB LES Final Result [facility] [address] [place] [address], [place] [phone] * CULTURE STOOL (08/31/2018 9:06 AM CDT) SPEC DESCRIPTION STOOL 08/31/2018 9:07 AM CDT [facility] SPECIAL REQUESTS NO SPECIAL REQUEST 08/31/2018 9:07 AM CDT [facility] CULTURE RESULT NEGATIVE FOR SHIGA TOXIN 1 AND 2 09/03/2018 8:39 AM CDT [facility] CULTURE RESULT NO ENTERIC PATHOGENS ISOLATED 09/03/2018 8:39 AM CDT [facility] CULTURE RESULT NOTE: STOOL CULTURES ARE ROUTINELY SCREENED FOR SALMONELLA,SH IGELLA,YERSIN IA,AEROMONAS, PLESIOMONAS,C AMPYLOBA CTER,E.COLI 0157,OVERGROW THS OF S.AUREUS,YEAS T AND P. AERUGINOSA 09/03/2018 8:39 AM CDT [facility] Stool specimen (specimen) STOOL SPECIMEN / Unknown 08/31/2018 9:06 AM CDT 08/31/2018 9:24 AM CDT Nate Dawson MD MICROBIOLOGY - GENERAL ORDERAB LES Final Result [facility] [address] [place] [address], * (ABNORMAL) POCT glucose (08/31/2018 6:43 AM CDT) GLUCOSE POC 143(H) 70 - 99 mg/dL 08/31/2018 7:04 AM CDT [facility] ORDERS INTERFACE 08/31/2018 6:43 AM CDT us Eduardo Abel DO POCT ORDERABLES - DEVICE Fin al Result [facility] ORDERS INTERFACE US * (ABNORMAL) BASIC METABOLIC PANEL (08/31/2018 5:00 AM CDT) GLUCOSE 121(H) 70 - 99 MG/DL 08/31/2018 6:05 AM CDT [facility] BUN 16 7 - 18 MG/DL 08/31/2018 6:05 AM CDT [facility] CREATININE S/P/B 0.83 0.55 - 1.02 MG/DL 08/31/2018 6:05 AM T [facility] SODIUM S/P/B 139 136 - 145 MMOL/L 08/31/2018 6:05 AM T [facility] POTASSIUM S/P/B 4.3 3.5 - 5.1 MMOL/L 08/31/2018 6:05 AM T [facility] CHLORIDE S/P/B 104 100 - 108 MMOL/L 08/31/2018 6:05 AM T [facility] CO2 30.0 21 - 32 MMOL/L 08/31/2018 6:05 AM [facility] CALCIUM S/P/B 9.0 8.5 - 10.1 MG/DL 08/31/2018 6:05 AM T [facility] ANION GAP 9.3 8 - 20 MMOL/L 08/31/2018 6:05 AM [facility] BUN CREATININE RATIO 19.2 6 - 26 08/31/2018 6:05 AM [facility] EGFR NON-AFR. AMER. 76(L) >90 ML/MIN/1.7 3 M2 08/31/2018 6:05 AM [facility] EGFR AFR. AMER. 88(L) >90 ML/MIN/1.7 3 M2 08/31/2018 6:05 AM [facility] Comment: NOTE: eGFR is not calculated for patients <18 years of age. This is an estimated GFR (CKD EPI) and should not be used for calculating drug doses. 08/31/2018 5:00 AM CDT us Nate Dawson MD LABORATORY Final Result [facility] [address] [place] [address], [place] [phone] * (ABNORMAL) CBC W/DIFF AUTOMATED (08/31/2018 5:00 AM CDT) [facility] WBC 9.7 4.5 - 11.0 x10'3/uL 08/31/2018 5:50 AM CDT [facility] RBC 4.06(L) 4.20 - 5.40 x10'6/uL 08/31/2018 5:50 AM CDT [facility] HGB 11.3(L) 12.0 - 16.0 G/DL 08/31/2018 5:50 AM CDT [facility] HCT 36.8(L) 38.0 - 48.0 % 08/31/2018 5:50 AM CDT [facility] MCV 90.6 81.0 - 99.0 FL 08/31/2018 5:50 AM CDT [facility] MCH 27.8 27.0 - 31.0 PG 08/31/2018 5:50 AM CDT [facility] MCHC 30.7(L) 32.0 - 36.0 G/DL 08/31/2018 5:50 AM CDT [facility] RDW 13.9 11.5 - 14.5 % 08/31/2018 5:50 AM CDT [facility] PLT 283 130 - 400 x10'3/uL 08/31/2018 5:50 AM CDT [facility] MPV 9.5 9.3 - 12.2 FL 08/31/2018 5:50 AM CDT [facility] DIFFERENTIAL TYPE AUTOMATED DIFFERENTIAL 08/31/2018 5:50 AM CDT [facility] NEUTROPHILS % 63.3 % 08/31/2018 5:50 AM CDT [facility] LYMPHOCYTES % 24.0 % 08/31/2018 5:50 AM CDT [facility] MONOCYTES % 8.3 % 08/31/2018 5:50 AM CDT [facility] EOSINOPHILS 3.5 % 08/31/2018 5:50 AM CDT [facility] BASOPHILS 0.4 % 08/31/2018 5:50 AM CDT [facility] IMMATURE GRANS % 0.5 % 09/01/19 19 5:50 AM CDT [facility] ABS. NEUTROPHILS TOTAL 6.15 1.80 - 7.70 x10'3/uL 08/31/2018 5:50 AM CDT [facility] ABS. LYMPHOCYTES 2.34 1.00 - 4.80 x10'3/uL 08/31/2018 5:50 AM CDT [facility] ABS. MONOCYTES 0.81 0.24 - 0.86 x10'3/uL 08/31/2018 5:50 AM CDT [facility] ABS. EOSINOPHILS 0.34 0.04 - 0.36 x10'3/uL 08/31/2018 5:50 AM CDT [facility] ABS. BASOPHILS 0.04 0.01 - 0.08 x10'3/uL 08/31/2018 5:50 AM CDT [facility] ABS. IMMATURE GRANULOCYTES 0.05 0.00 - 0.49 x10'3/uL 08/31/2018 5:50 AM CDT [facility] 08/31/2018 5:00 AM CDT us Nate Dawson MD LABORATORY Final Result [facility] [address] [place] [address], * ECG 12 lead (08/31/2018 12:25 AM CDT) 08/31/2018 12:2 5 AM CDT Narrative [facility] - 08/31/2018 7:58 AM CDT ?[facility] ? [address] [place] ? Test Date: ?2018-08-31 Pat Name: ? MOHSEN MARQUES ?Department: ? Room: ? [id number] Gender: ? Female ? Endoscopy Support Specialist: ?? SL : ?1955 ? Requested By: EDUARDO WALKER Order Number: [id number] ? Reading MD: ?? Noe Cowan ? Measurements Intervals ?[place] ? Rate: ? 71 ? P: ?42 NC: ? 126 ?QRS: ?4 QRSD: ? 84 ? T: ?45 QT: ? 392 ? QTc: ?426 ? Interpretive Statements SINUS RHYTHM Compared to ECG 03/17/2018 22:02:31 T-wave abnormality no longer present Procedure Note Noe Cowan MD - 08/31/2018 [facility] [place] Test Date: 2018-08-31 Pat Name: MOHSEN MARQUES Department: Room: [facility] Gender: Female Endoscopy Support Specialist: : 1955 Requested By: EDUARDO ABEL Order Number: [id number] Felipe MD: Noe Cowan Measurements Intervals [place] Rate: 71 P: 42 NC: 126 QRS: 4 QRSD: 84 T: 45 QT: 392 QTc: 426 Interpretive Statements SINUS RHYTHM Compared to ECG 03/17/2018 22:02:31 T-wave abnormality no longer present us Nate Dawson MD ECG ORDERABLES Final Result [facility] * TROPONIN, QUANT (08/31/2018 12:17 AM CDT) TROPONIN I <0.015 <0.045 ng/mL. 08/31/2018 12:52 AM CDT [facility] Comment: HIGH DOSES OF BIOTIN MAY INTERFERE WITH THIS TEST RESULT. CORRELATION TO CLINICAL HISTORY AND PRESENTATION RECOMMENDED. 08/31/2018 12:1 7 AM CDT Nate Dawson MD LABORATORY Final Result Performing Organization Address [facility] Co de Phone Number [facility] [address] [place] [address], [place] [phone] * (ABNORMAL) POCT glucose (08/30/2018 10:45 PM CDT) GLUCOSE POC 133(H) 70 - 99 mg/dL 08/30/2018 11:13 PM CDT [facility] ORDERS INTERFACE 08/30/2018 10:4 5 PM CDT Eduardo Abel DO POCT ORDERABLES - DEVICE Fin al Result Performing Organization Address [facility] Co de Phone Number [facility] ORDERS INTERFACE US * CULTURE, BACTERIA, BLOOD (08/30/2018 10:16 PM CDT) SPEC DESCRIPTION BLOOD 08/30/2018 9:02 PM CDT [facility] SPECIAL REQUESTS NO SPECIAL REQUEST 08/30/2018 9:02 PM CDT [facility] CULTURE RESULT NO GROWTH 6 DAYS 09/05/2018 8:29 AM CDT [facility] BLOOD SPECIMEN OBTAINED FOR BLOOD CULTURE / Unknown 08/30/2018 10:16 PM CDT 08/30/2018 10:18 PM CDT Nate Dawson MD MICROBIOLOGY - GENERAL ORDERAB LES Final Result Performing Organization Address City/[facility]/ZIP Co de Phone Number [facility] [address] [place] [address], * CULTURE, BACTERIA, BLOOD (08/30/2018 10:16 PM CDT) [facility] SPEC DESCRIPTION BLOOD 08/30/2018 9:02 PM CDT [facility] SPECIAL REQUESTS NO SPECIAL REQUEST 08/30/2018 9:02 PM CDT [facility] CULTURE RESULT NO GROWTH 6 DAYS 09/05/2018 8:29 AM CDT [facility] BLOOD SPECIMEN OBTAINED FOR BLOOD CULTURE / Unknown 08/30/2018 10:16 PM CDT 08/30/2018 10:18 PM CDT Nate Dawson MD MICROBIOLOGY - GENERAL ORDERAB LES Final Result [facility] [address] [place] [address], * OCCULT BLOOD, FECES (08/30/2018 9:35 PM CDT) [facility] OCCULT BLOOD FECAL NEGATIVE 08/30/2018 11:06 PM CDT [facility] STOOL SPECIMEN / Unknown 08/30/2018 9:35 PM CDT Leah Mackay NP BODY FLUIDS AND STOOLS ORDERA BLES Final Result [address] [address], [place] [phone] * (ABNORMAL) POCT glucose (08/30/2018 8:33 PM CDT) [facility] GLUCOSE POC 120(H) 70 - 99 mg/dL 08/30/2018 8:38 PM CDT [facility] ORDERS INTERFACE 08/30/2018 8:33 PM CDT Leah Mackay PUBLIC WORKS LABORER POCT ORDERABLES - DEVICE Deann l Result [facility] ORDERS INTERFACE US * (ABNORMAL) POCT glucose (08/30/2018 8:33 PM CDT) GLUCOSE WHOLE BLOOD 120(A) 70 - 100 mg/dL [facility] Leah Mackay PUBLIC WORKS LABORER POCT ORDERABLES - DEVICE Deann l Result Performing Organization Address City/[facility]/ZIP Co de Phone Number [facility] [address] [place] [address], [place] [phone] * CT ABD+PEL W IV CON ONLY [...] cardiopulmonary disease process. us Leah K Codie PUBLIC WORKS LABORER GENERAL IMAGING Final Result * LACTIC ACID (08/30/2018 4:24 PM CDT) LACTIC ACID VENOUS 0.9 0.4 - 2.0 MMOL/L 08/30/2018 5:03 PM CDT [facility] 08/30/2018 4:24 PM CDT Leah Mackay PUBLIC WORKS LABORER LABORATORY Final Result [facility] [address] [place] [address], [place] [phone] * CULTURE URINE (08/30/2018 3:02 PM CDT) SPEC DESCRIPTION URINE CLEAN CATCH 08/30/2018 6:05 PM CDT [facility] SPECIAL REQUESTS NO SPECIAL REQUEST 08/30/2018 6:05 PM CDT [facility] CULTURE RESULT POLYMICROBIAL GROWTH CONSISTENT WITH NORMAL GENITAL YESENIA. ?? SUSCEPTIBILITIES NOT ROUTINELY PERFORMED. 08/31/2018 2:29 PM CDT [facility] URINE SPECIMEN OBTAINED BY CLEAN CATCH PROCEDURE / Unknown 08/30/2018 3:02 PM CDT 08/30/2018 6:05 PM CDT Joann OLGUINP MICROBIOLOGY - GENERAL ORDE RABLES Final Result [facility] [address] [place] [address], [place] [phone] * (ABNORMAL) URINALYSIS (08/30/2018 3:02 PM CDT) SPECIMEN TYPE URINE CLEAN CATCH 08/30/2018 3:02 PM CDT [facility] COLOR (U) YELLOW 08/30/2018 3:47 PM CDT [facility] TRANSPARENCY CLEAR 08/30/2018 3:47 PM [facility] SPECIFIC GRAVITY (U) 1.023 1.001 - 1.030 08/30/2018 3:47 PM T [facility] U PH 5.0 5.0 - 9.0 08/30/2018 3:47 PM T [facility] LEUKOCYTES (U) TRACE(A) NEGATIVE 08/30/2018 3:47 PM T [facility] NITRITES NEGATIVE NEGATIVE 08/30/2018 3:47 PM T [facility] PROTEIN (U) NEGATIVE <30 MG/DL 08/30/2018 3:47 PM [facility] URINE GLUCOSE NEGATIVE NEGATIVE MG/DL 08/30/2018 3:47 PM T [facility] KETONES MG/DL (U) NEGATIVE NEGATIVE MG/DL 08/30/2018 3:47 PM T [facility] UROBILINOGEN NEGATIVE NEGATIVE MG/DL 08/30/2018 3:47 PM [facility] BILIRUBIN (U) NEGATIVE NEGATIVE MG/DL 08/30/2018 3:47 PM T [facility] BLOOD (U) SMALL(A) NEGATIVE 08/30/2018 3:47 PM [facility] CULTURE & SENSITIVITY INDICATED? SPECIMEN SETUP FOR CULTURE 08/30/2018 3:47 PM T [facility] MUCUS RARE /LPF 08/30/2018 3:47 PM [facility] WBC/HPF 7(H) <6 /HPF 08/30/2018 3:47 PM [facility] RBC/HPF 4 <6 /HPF 08/30/2018 3:47 PM [facility] URINE SPECIMEN OBTAINED BY CLEAN CATCH PROCEDURE / Unknown 08/30/2018 3:02 PM CDT Joannluz elena Casillas MARKETING SENIOR RECRUITER URINE ORDERABLES Final Resu lt Performing Organization Address [facility] Co de Phone Number [facility] [address] [place] [address], * (ABNORMAL) D-DIMER, QUANTITATIVE (08/30/2018 2:48 PM CDT) D-DIMER 860(HH) 0 - 230 D DU ng/mL 08/30/2018 11:15 PM CDT [facility] Comment: TESTING PERFORMED ON [employer] ACL TOP 300 ANALYZER. NOTE: RESULTS OF [...] INFECTIONS, LIVER CIRRHOSIS OR . Successful Call: [facility] called 08/30/2018 11:16 PM to [facility] (1/HANS CARLOS) by [id number]. Read Back: Yes 08/30/2018 2:48 PM CDT Nate Dawson MD LABORATORY Final Result Performing Organization Address City/[facility]/ZIP Co de Phone Number [facility] [address] [place] [address], * LIPASE (08/30/2018 2:48 PM CDT) LIPASE 117 73 - 393 UNITS/L 08/30/2018 3:27 PM CDT [facility] 08/30/2018 2:48 PM CDT Joann Casillas [facility] Final Resul t [facility] [address] [place] [address], [place] [phone] * (ABNORMAL) COMPREHENSIVE METABOLIC PANEL (08/30/2018 2:48 PM CDT) [facility] GLUCOSE 135(H) 70 - 99 MG/DL 08/30/2018 3:27 PM CDT [facility] BUN 16 7 - 18 MG/DL 08/30/2018 3:27 PM CDT [facility] CREATININE S/P/B 0.76 0.55 - 1.02 MG/DL 08/30/2018 3:27 PM CDT [facility] SODIUM S/P/B 137 136 - 145 MMOL/L 08/30/2018 3:27 PM CDT [facility] POTASSIUM S/P/B 4.0 3.5 - 5.1 MMOL/L 08/30/2018 3:27 PM CDT [facility] CHLORIDE S/P/B 104 100 - 108 MMOL/L 08/30/2018 3:27 PM CDT [facility] CO2 29.6 21 - 32 MMOL/L 08/30/2018 3:27 PM CDT [facility] CALCIUM S/P/B 10.2(H) 8.5 - 10.1 MG/DL 08/30/2018 3:27 PM CDT [facility] BILIRUBIN TOTAL S/P/B 0.6 0.2 - 1.2 MG/DL 08/30/2018 3:27 PM CDT [facility] TOTAL PROTEIN S/P/B 8.6(H) 6.4 - 8.2 G/DL 08/30/2018 3:27 PM CDT [facility] ALBUMIN S/P/B 3.4 3.4 - 5.0 G/DL 08/30/2018 3:27 PM CDT [facility] AST 18 15 - 37 U/L 08/30/2018 3:27 PM CDT [facility] ALT 27 14 - 55 U/L 08/30/2018 3:27 PM CDT [facility] ALKALINE PHOSPHATASE S/P/B 102 50 - 136 U/L 08/30/2018 3:27 PM CDT [facility] ANION GAP 7.4(L) 8 - 20 MMOL/L 08/30/2018 3:27 PM T [facility] BUN CREATININE RATIO 20.9 6 - 26 08/30/2018 3:27 PM T [facility] A/G RATIO 0.7(L) 1.0 - 2.0 RATIO 08/30/2018 3:27 PM T [facility] EGFR NON-AFR. AMER. 84(L) >90 ML/MIN/1.7 3 M2 08/30/2018 3:27 PM T [facility] EGFR AFR. AMER. >90 >90 ML/MIN/1.7 3 M2 08/30/2018 3:27 PM T [facility] Comment: NOTE: eGFR is not calculated for patients <18 years of age. This is an estimated GFR (CKD EPI) and should not be used for calculating drug doses. 08/30/2018 2:48 PM CDT us Joann Casillas MARKETING SENIOR RECRUITER LABORATORY Final Resul t [facility] [address] [place] [address], [place] [phone] * (ABNORMAL) CBC W/DIFF AUTOMATED (08/30/2018 2:48 PM CDT) [facility] WBC 12.7(H) 4.5 - 11.0 x10'3/uL 08/30/2018 3:05 PM CDT [facility] RBC 4.75 4.20 - 5.40 x10'6/uL 08/30/2018 3:05 PM CDT [facility] HGB 13.3 12.0 - 16.0 G/DL 08/30/2018 3:05 PM CDT [facility] HCT 42.4 38.0 - 48.0 % 08/30/2018 3:05 PM CDT [facility] MCV 89.3 81.0 - 99.0 FL 08/30/2018 3:05 PM CDT [facility] MCH 28.0 27.0 - 31.0 PG 08/30/2018 3:05 PM CDT [facility] MCHC 31.4(L) 32.0 - 36.0 G/DL 08/30/2018 3:05 PM CDT [facility] RDW 13.7 11.5 - 14.5 % 08/30/2018 3:05 PM CDT [facility] PLT 349 130 - 400 x10'3/uL 08/30/2018 3:05 PM CDT [facility] MPV 9.2(L) 9.3 - 12.2 FL 08/30/2018 3:05 PM CDT [facility] DIFFERENTIAL TYPE AUTOMATED DIFFERENTIAL 08/30/2018 3:05 PM CDT [facility] NEUTROPHILS % 70.4 % 08/30/2018 3:05 PM CDT [facility] LYMPHOCYTES % 19.1 % 08/30/2018 3:05 PM CDT [facility] MONOCYTES % 7.6 % 08/30/2018 3:05 PM CDT [facility] EOSINOPHILS 2.2 % 08/30/2018 3:05 PM CDT [facility] BASOPHILS 0.2 % 08/30/2018 3:05 PM CDT [facility] IMMATURE GRANS % 0.5 % 08/31/19 19 3:05 PM CDT [facility] ABS. NEUTROPHILS TOTAL 8.91(H) 1.80 - 7.70 x10'3/uL 08/30/2018 3:05 PM CDT [facility] ABS. LYMPHOCYTES 2.42 1.00 - 4.80 x10'3/uL 08/30/2018 3:05 PM CDT [facility] ABS. MONOCYTES 0.96(H) 0.24 - 0.86 x10'3/uL 08/30/2018 3:05 PM CDT [facility] ABS. EOSINOPHILS 0.28 0.04 - 0.36 x10'3/uL 08/30/2018 3:05 PM CDT [facility] ABS. BASOPHILS 0.03 0.01 - 0.08 x10'3/uL 08/30/2018 3:05 PM CDT [facility] ABS. IMMATURE GRANULOCYTES 0.06 0.00 - 0.49 x10'3/uL 08/30/2018 3:05 PM CDT [facility] 08/30/2018 2:48 PM CDT [facility] Final Resul t [facility] [address] [place] [address], [place] [phone] documented in this encounter Visit Diagnoses Diagnosis Pain in the abdomen- Primary Abdominal pain, unspecified site Periumbilical abdominal pain Abdominal pain, periumbilic Nausea vomiting and diarrhea Nausea with vomiting PE (pulmonary thromboembolism) ([facility]) Chronic pulmonary embolism Bilateral malignant neoplasm of breast in female ([facility]) Diverticulosis Diverticulosis of colon (without mention of hemorrhage) Hypertension Unspecified essential hypertension Type 2 diabetes mellitus ([facility]) Type II or unspecified type [...] Starting on Valeri 08/30/18 at 2000, Until [facility] 08/30/18 at 2155 New Bag 08/30/2018 8:34 [...] minutes. 1620 (Given - Provider: Maira Bocanegra, NURIS) ondansetron (ZOFRAN) injection 4 mg (COMPLETED) [...] pos. 02/201808/31/2018 08/31/2018 07/02/19 21 2:54 AM POWDER COATER documented as of this encounter Care Teams Fire Prevention Captain Relationship Specialty Start Date End Date [facility] [address] PCP - General FAMILY PRACTICE 08/20/17 Meena Bansal MD [address] [id number] José Luis Dental Claims Processor CARDIOVASCULAR DISEASE 04/24/16 documented as of this encounter
--- OUTSIDE RECORDS SUMMARY | 2024-04-26 07:03 | XMS_ITS | Encounter Summary ---
Author Organization [facility] Address [address] [place] [address]. [place] [address] [place] [address] Care Team Providers Care Fire Truck Driver Name Role Phone Meena Bansal MD Unavailable [phone] Justen Gale MD Primary Care Provider [phone] Reason for Referral * Imaging (Emergency) - Closed Specialty Diagnoses / Procedures Referred By Elyssa t Referred To Contact Procedures CT LUMB SPINE WO CON Kiesha Hall NP Referral ID Status Reason Start Date Expiration Date Visits Re quested Visits Authorized [id number] Closed 07/16/2018 08/17/2019 1 1 Reason for Visit * Reason Comments Back Pain Leg Pain Encounter Details Date Type Department Care Team (Late st Contact Info) Description 07/16/2018 9:28 PM CDT - 07/17/2018 1:05 AM CDT Emergency [facility] [place] [address] Melvin Patterson MD [address] [place] [id number] Back Pain; Leg Pain Discharge Disposition: [...] Sexual Orientation Straight 03/18/2018 3: 01 AM 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 Pt reports hx of chronic back pain. States pain became worse last night into today. Reports legs become weak when walking. States she was diagnosed with a UTI a month ago. * Kiesha Hall NP - 07/16/2018 9:09 PM CDT [place], [place] EMERGENCY DEPARTMENT ENCOUNTER Medical Screening Examination [...] URINE CLEAN CATCH 07/17/2018 1:29 AM CDT [facility] SPECIAL REQUESTS NO SPECIAL REQUEST 07/17/2018 1:29 AM CDT [facility] CULTURE RESULT POLYMICROBIAL GROWTH CONSISTENT WITH NORMAL GENITAL YESENIA. ?? SUSCEPTIBILITIES NOT ROUTINELY PERFORMED. 07/19/2018 8:18 AM CDT [facility] URINE SPECIMEN OBTAINED BY CLEAN CATCH PROCEDURE / Unknown 07/16/2018 9:56 PM CDT 07/17/2018 1:28 AM CDT Kiesha Hall NP MICROBIOLOGY - GENERAL ORD ERABLES Final Result [facility] [address] [place] [address], * (ABNORMAL) URINALYSIS (07/16/2018 9:56 PM CDT) SPECIMEN TYPE URINE CLEAN CATCH 07/16/2018 9:55 PM CDT [facility] COLOR (U) YELLOW 07/16/2018 11:00 PM CDT [facility] TRANSPARENCY CLEAR 07/16/2018 11:00 PM CDT [facility] SPECIFIC GRAVITY (U) 1.019 1.001 - 1.030 07/16/2018 11:00 PM CDT [facility] U PH 5.0 5.0 - 9.0 07/16/2018 11:00 PM CDT [facility] LEUKOCYTES (U) MODERATE(A) NEGATIVE 9 11:00 PM CDT [facility] NITRITES NEGATIVE NEGATIVE 07/16/2018 11:00 PM CDT [facility] PROTEIN (U) NEGATIVE <30 MG/DL 07/16/2018 11:00 PM CDT [facility] URINE GLUCOSE NEGATIVE NEGATIVE MG/DL 07/16/2018 11:00 PM CDT [facility] KETONES MG/DL (U) NEGATIVE NEGATIVE MG/DL 07/16/2018 11:00 PM CDT [facility] UROBILINOGEN NEGATIVE NEGATIVE MG/DL 07/16/2018 11:00 PM CDT [facility] BILIRUBIN (U) NEGATIVE NEGATIVE MG/DL 07/16/2018 11:00 PM CDT [facility] BLOOD (U) MODERATE(A) NEGATIVE 07/16/2018 11:00 PM CDT [facility] CULTURE & SENSITIVITY INDICATED? SPECIMEN SETUP FOR CULTURE 07/16/2018 11:00 PM T [facility] SQUAMOUS EPITHELIALS MODERATE /LPF 07/16/2018 11:00 PM CDT [facility] MUCUS RARE /LPF 07/16/2018 11:00 PM T [facility] HYALINE CASTS RARE /LPF 07/16/2018 11:00 PM CDT [facility] WBC/HPF 14(H) <6 /HPF 07/16/2018 11:00 PM CDT [facility] RBC/HPF 1 <6 /HPF 07/16/2018 11:00 PM T [facility] URINE SPECIMEN OBTAINED BY CLEAN CATCH PROCEDURE / Unknown 07/16/2018 9:56 PM CDT us Kiesha Hall CUSTOMER SUPPORT TECHNICIAN URINE ORDERABLES Final Res ult Performing Organization Address City/State/[facility] Co de Phone Number [facility] [address] [place] [address], * (ABNORMAL) COMPREHENSIVE METABOLIC PANEL (07/16/2018 9:31 PM CDT) [facility] Signature GLUCOSE 132(H) 70 - 99 MG/DL 07/16/2018 10:11 PM CDT [facility] BUN 24(H) 7 - 18 MG/DL 07/16/2018 10:11 PM CDT [facility] CREATININE S/P/B 0.94 0.55 - 1.02 MG/DL 07/16/2018 10:11 PM CDT [facility] SODIUM S/P/B 138 136 - 145 MMOL/L 07/16/2018 10:11 PM CDT [facility] POTASSIUM S/P/B 4.6 3.5 - 5.1 MMOL/L 07/16/2018 10:11 PM CDT [facility] CHLORIDE S/P/B 105 100 - 108 MMOL/L 07/16/2018 10:11 PM CDT [facility] CO2 28.7 21 - 32 MMOL/L 07/16/2018 10:11 PM CDT [facility] CALCIUM S/P/B 9.9 8.5 - 10.1 MG/DL 07/16/2018 10:11 PM CDT [facility] BILIRUBIN TOTAL S/P/B 0.4 0.2 - 1.2 MG/DL 07/16/2018 10:11 PM CDT [facility] TOTAL PROTEIN S/P/B 8.8(H) 6.4 - 8.2 G/DL 07/16/2018 10:11 PM CDT [facility] ALBUMIN S/P/B 3.4 3.4 - 5.0 G/DL 07/16/2018 10:11 PM CDT [facility] AST 18 15 - 37 U/L 07/16/2018 10:11 PM CDT [facility] ALT 27 14 - 55 U/L 07/16/2018 10:11 PM CDT [facility] ALKALINE PHOSPHATASE S/P/B 95 50 - 136 U/L 07/16/2018 10:11 PM CDT [facility] ANION GAP 8.9 8 - 20 MMOL/L 07/16/2018 10:11 PM CDT [facility] BUN CREATININE RATIO 25.7 6 - 26 07/16/2018 10:11 PM CDT [facility] A/G RATIO 0.6(L) 1.0 - 2.0 RATIO 07/16/2018 10:11 PM T [facility] EGFR NON-AFR. AMER. 65(L) >90 ML/MIN/1.7 3 M2 07/16/2018 10:11 PM CDT [facility] EGFR AFR. AMER. 75(L) >90 ML/MIN/1.7 3 M2 07/16/2018 10:11 PM CDT [facility] Comment: NOTE: eGFR is not calculated for patients <18 years of age. This is an estimated GFR (CKD EPI) and should not be used for calculating drug doses. 07/16/2018 9:31 PM CDT us Kiesha Hall NP LABORATORY Final Resu lt [facility] [address] [place] [address], [place] [phone] * (ABNORMAL) CBC W/DIFF AUTOMATED (07/16/2018 9:31 PM CDT) WBC 10.6 4.5 - 11.0 x10'3/uL 07/16/2018 9:51 PM CDT [facility] RBC 4.64 4.20 - 5.40 x10'6/uL 07/16/2018 9:51 PM CDT [facility] HGB 12.7 12.0 - 16.0 G/DL 07/16/2018 9:51 PM CDT [facility] HCT 41.5 38.0 - 48.0 % 07/16/2018 9:51 PM CDT [facility] MCV 89.4 80.0 - 94.0 FL 07/16/2018 9:51 PM CDT [facility] MCH 27.4 27.0 - 31.0 PG 07/16/2018 9:51 PM CDT [facility] MCHC 30.6(L) 32.0 - 36.0 G/DL 07/16/2018 9:51 PM CDT [facility] RDW 14.6(H) 11.5 - 14.5 % 07/16/2018 9:51 PM CDT [facility] PLT 317 130 - 400 x10'3/uL 07/16/2018 9:51 PM CDT [facility] MPV 9.5 9.3 - 12.2 FL 07/16/2018 9:51 PM CDT [facility] DIFFERENTIAL TYPE AUTOMATED DIFFERENTIAL 07/16/2018 9:51 PM CDT [facility] NEUTROPHILS % 62.2 % 07/16/2018 9:51 PM CDT [facility] LYMPHOCYTES % 26.1 % 07/16/2018 9:51 PM CDT [facility] MONOCYTES % 8.1 % 07/16/2018 9:51 PM CDT [facility] EOSINOPHILS 3.0 % 07/16/2018 9:51 PM CDT [facility] BASOPHILS 0.3 % 07/16/2018 9:51 PM CDT [facility] IMMATURE GRANS % 0.3(H) 0 % 07/17/19 19 9:51 PM CDT [facility] ABS. NEUTROPHILS TOTAL 6.60 1.80 - 7.70 x10'3/uL 07/16/2018 9:51 PM CDT [facility] ABS. LYMPHOCYTES 2.77 1.00 - 4.80 x10'3/uL 07/16/2018 9:51 PM CDT [facility] ABS. MONOCYTES 0.86 0.24 - 0.86 x10'3/uL 07/16/2018 9:51 PM CDT [facility] ABS. EOSINOPHILS 0.32 0.04 - 0.36 x10'3/uL 07/16/2018 9:51 PM CDT [facility] ABS. BASOPHILS 0.03 0.01 - 0.08 x10'3/uL 07/16/2018 9:51 PM CDT [facility] ABS. IMMATURE GRANULOCYTES 0.03 0.00 - 0.03 x10'3/uL 07/16/2018 9:51 PM CDT [facility] 07/16/2018 9:31 PM CDT Kiesha Hall NP LABORATORY Final Resu lt [facility] [address] [place] [address], [place] [phone] * CT LUMB SPINE WO CON (07/16/2018 [...] MD, 07/16/2018 9:33 PM Kiesha Leonard Isabel CUSTOMER SUPPORT TECHNICIAN CT Final Resu lt documented in this [...] as of this encounter Care Teams Fire Truck Driver Relationship Specialty Start Date End Date Justen Gale MD [facility] [address] [place] [address] PCP - General FAMILY PRACTICE 08/20/17 Meena Bansal MD [facility]. [facility] [address] [place] [address] José Luis Inside Plant Supervisor CARDIOVASCULAR DISEASE 04/24/16 documented as of this encounter
--- OUTSIDE RECORDS SUMMARY | 2024-04-26 07:03 | XMS_ITS | Encounter Summary ---
Author Organization [facility] Address [address] [place] [address]. [place] [address] [place] [address] Care Team Providers Care Civil Engineering Drafter Name Role Phone Lavonne Ram MD Primary Care Provider [phone] Meena Bansal MD Unavailable [phone] Encounter Details Date Type Department Care Team (Late st Contact Info) Description 12/07/2016 Abstract [facility] [place] [address] Lila Morrison MD 3 [facility] [address] [place], [place] [id number] Social History Tobacco Use Types Packs/Day Years Used Date Smoking Tobacco: Never Assessed Comments Unknown Sex and Gender Information Value Date Recorded Sex Assigned at Female 09/06/2020 12:50 AM CDT Legal Sex Female 10:47 AM CDT Gender Identity Female 09/06/2020 12:50 AM CDT Sexual Orientation Straight 03/18/2018 3: 01 AM [employer] CL[employer] documented as of this encounter Plan of [...] - 10.8 x10'3/uL 12/07/2016 7:00 AM CDT [facility] RBC 3.48(L) 4.20 - 5.40 x10'6/uL 12/07/2016 7:00 AM CDT [facility] HGB 9.8(L) 12.0 - 16.0 G/DL 12/07/2016 7:00 AM CDT [facility] HCT 31.5(L) 38.0 - 48.0 % 12/07/2016 7:00 AM CDT [facility] MCV 90.5 81.0 - 99.0 FL 12/07/2016 7:00 AM CDT [facility] MCH 28.2 27.0 - 31.0 PG 12/07/2016 7:00 AM CDT [facility] MCHC 31.1(L) 32.0 - 36.0 G/DL 12/07/2016 7:00 AM CDT [facility] RDW 14.6(H) 11.5 - 14.5 % 12/07/2016 7:00 AM CDT [facility] PLT 193 130 - 400 x10'3/uL 12/07/2016 7:00 AM CDT [facility] MPV 9.9 9.3 - 12.2 FL 12/07/2016 7:00 AM CDT [facility] IMMATURE GRANS % 0.2 0.0 - 1.0 % 12/07/2016 7:00 AM CDT [facility] NEUTROPHILS % 56.9 43.0 - 65.0 % 12/07/2016 7:00 AM CDT [facility] LYMPHOCYTES % 29.8 20.0 - 46.0 % 12/07/2016 7:00 AM CDT [facility] MONOCYTES % 12.1(H) 5.0 - 12.0 % 12/07/2016 7:00 AM CDT [facility] EOSINOPHILS 0.7(L) 1.0 - 3.0 % 12/07/2016 7:00 AM CDT [facility] BASOPHILS 0.3 0.0 - 1.0 % 12/07/2016 7:00 AM CDT [facility] WHOLE BLOOD SPECIMEN / Unknown 12/07/2016 6:15 AM CDT 12/07/2016 6:18 AM CDT us Generic Conversion Md [facility] Final R esult [facility] [address] [place] [address], [place] [phone] * (ABNORMAL) BASIC METABOLIC PANEL (12/07/2016 6:15 AM CDT) GLUCOSE 149(H) 70 - 99 mg/dL 12/07/2016 7:28 AM CDT [facility] BUN 10 8 - 23 mg/dL 12/07/2016 7:28 AM CDT [facility] CREATININE S/P/B 0.53(L) 0.60 - 1.10 mg/dL 12/07/2016 7:28 AM CDT [facility] SODIUM S/P/B 137 136 - 145 mmol/L 12/07/2016 7:28 AM CDT [facility] POTASSIUM S/P/B 4.1 3.5 - 5.1 mmol/L 12/07/2016 7:28 AM CDT [facility] CHLORIDE S/P/B 104 98 - 107 mmol/L 12/07/2016 7:28 AM CDT [facility] CO2 21(L) 22 - 29 mmol/L 12/07/2016 7:28 AM CDT [facility] CALCIUM S/P/B 8.1(L) 8.6 - 10.2 mg/dL 12/07/2016 7:28 AM CDT [facility] ANION GAP 16 8 - 20 12/07/2016 7:28 AM CDT [facility] EGFR NON-AFR. AMER. >60 >60 mL/min/1.7 3m'2 12/07/2016 7:28 AM CDT [facility] EGFR AFR. AMER. >60 >60 mL/min/1.7 '2 12/07/2016 7:28 AM CDT [facility] Comment: NOTE: eGFR is not calculated for patients <18 years of age. This is an estimated GFR (CKD EPI) and should not be used for calculating drug doses. 12/07/2016 6:15 AM CDT 12/07/2016 6:18 AM CDT us Generic Conversion Md [facility] Final R esult Performing Organization Address City/[facility]/ZIP Co de Phone Number [facility] [address] [place] [address], [place] [phone] * (ABNORMAL) POCT glucose (12/07/2016 5:40 AM CDT) [facility] GLUCOSE POC 147(H) 70 - 99 mg/dL 12/07/2016 6:[address] [facility] ORDERS INTERFACE 12/07/2016 5:40 AM CDT 12/07/2016 6:54 AM CDT us Generic Conversion Md [facility] POCT ORDERABLES - DEVIC E Final Result [facility] ORDERS INTERFACE US * (ABNORMAL) POCT glucose (12/06/2016 10:17 PM CDT) GLUCOSE POC 194(H) 70 - 99 mg/dL 12/06/2016 10:[address] [facility] ORDERS INTERFACE 12/06/2016 10:1 7 PM CDT 12/06/2016 10:49 PM CDT us Generic Conversion Md [facility] POCT ORDERABLES - DEVIC E Final Result Performing Organization Address City/[facility]/ZIP Co de Phone Number [facility] ORDERS INTERFACE US * (ABNORMAL) POCT glucose (12/06/2016 3:45 PM CDT) GLUCOSE POC 164(H) 70 - 99 mg/dL 12/06/2016 4:[address] [facility] ORDERS INTERFACE 12/06/2016 3:45 PM CDT 12/06/2016 4:14 PM CDT us Generic Conversion Md [facility] POCT ORDERABLES - DEVIC E Final Result Performing Organization Address [facility] de Phone Number [facility] ORDERS INTERFACE US * (ABNORMAL) POCT glucose (12/06/2016 11:45 AM CDT) GLUCOSE POC 116(H) 70 - 99 mg/dL 12/06/2016 11:[address] [facility] ORDERS INTERFACE 12/06/2016 11:4 5 AM CDT 12/06/2016 11:50 AM CDT us Generic Conversion Md [facility] POCT ORDERABLES - DEVIC E Final Result Performing Organization Address City/[facility] Co de Phone Number [facility] ORDERS INTERFACE US * INFLUENZA A & B (12/06/2016 10:13 AM CDT) SPECIMEN TYPE NASOPHARYNGEAL SWAB 12/06/2016 9:46 AM CDT [facility] INFLUENZA A NEGATIVE NEGATIVE 12/06/2016 10:48 AM CDT [facility] INFLUENZA B NEGATIVE NEGATIVE 12/06/2016 10:48 AM CDT [facility] Comment: Interpretation: Negative for Influenza [...] [facility] - GENERAL ORDERABLES Final Result [facility] [address] [place] [address], * (ABNORMAL) BASIC METABOLIC PANEL (12/06/2016 7:20 AM CDT) GLUCOSE 168(H) 70 - 99 mg/dL 12/06/2016 9:56 AM CDT [facility] BUN 14 8 - 23 mg/dL 12/06/2016 9:56 AM CDT [facility] CREATININE S/P/B 0.74 0.60 - 1.10 mg/dL 12/06/2016 9:56 AM CDT [facility] SODIUM S/P/B 135(L) 136 - 145 mmol/L 12/06/2016 9:56 AM CDT [facility] POTASSIUM S/P/B 4.3 3.5 - 5.1 mmol/L 12/06/2016 9:56 AM CDT [facility] CHLORIDE S/P/B 102 98 - 107 mmol/L 12/06/2016 9:56 AM CDT [facility] CO2 20(L) 22 - 29 mmol/L 12/06/2016 9:56 AM CDT [facility] CALCIUM S/P/B 8.3(L) 8.6 - 10.2 mg/dL 12/06/2016 9:56 AM CDT [facility] ANION GAP 17 8 - 20 12/06/2016 9:56 AM CDT [facility] EGFR NON-AFR. AMER. >60 >60 mL/min/1.7 '2 12/06/2016 9:56 AM CDT [facility] EGFR AFR. AMER. >60 >60 mL/min/1.7 '2 12/06/2016 9:56 AM CDT [facility] Comment: NOTE: eGFR is not calculated for patients <18 years of age. This is an estimated GFR (CKD EPI) and should not be used for calculating drug doses. 12/06/2016 7:20 AM CDT 12/06/2016 9:35 AM CDT us Generic Conversion Md [facility] Final R esult [facility] [address] [place] [address], [place] [phone] * (ABNORMAL) CBC W/DIFF AUTOMATED (12/06/2016 7:20 AM CDT) WBC 7.6 4.8 - 10.8 x10'3/uL 12/06/2016 7:39 AM CDT [facility] RBC 3.92(L) 4.20 - 5.40 x10'6/uL 12/06/2016 7:39 AM CDT [facility] HGB 11.3(L) 12.0 - 16.0 G/DL 12/06/2016 7:39 AM CDT [facility] HCT 35.1(L) 38.0 - 48.0 % 12/06/2016 7:39 AM CDT [facility] MCV 89.5 81.0 - 99.0 FL 12/06/2016 7:39 AM CDT [facility] MCH 28.8 27.0 - 31.0 PG 12/06/2016 7:39 AM CDT [facility] MCHC 32.2 32.0 - 36.0 G/DL 12/06/2016 7:39 AM CDT [facility] RDW 14.3 11.5 - 14.5 % 12/06/2016 7:39 AM CDT [facility] PLT 223 130 - 400 x10'3/uL 12/06/2016 7:39 AM CDT [facility] MPV 9.7 9.3 - 12.2 FL 12/06/2016 7:39 AM CDT [facility] IMMATURE GRANS % 0.4 0.0 - 1.0 % 12/06/2016 7:39 AM CDT [facility] NEUTROPHILS % 74.6(H) 43.0 - 65.0 % 12/06/2016 7:39 AM CDT [facility] LYMPHOCYTES % 14.0(L) 20.0 - 46.0 % 12/06/2016 7:39 AM CDT [facility] MONOCYTES % 10.5 5.0 - 12.0 % 12/06/2016 7:39 AM CDT [facility] EOSINOPHILS 0.4(L) 1.0 - 3.0 % 12/06/2016 7:39 AM CDT [facility] BASOPHILS 0.1 0.0 - 1.0 % 12/06/2016 7:39 AM CDT [facility] WHOLE BLOOD SPECIMEN / Unknown 12/06/2016 7:20 AM CDT 12/06/2016 7:21 AM CDT us Generic Conversion Md [facility] Final R esult [facility] [address] [place] [address], [place] [phone] * (ABNORMAL) POCT glucose (12/06/2016 5:55 AM CDT) GLUCOSE POC 155(H) 70 - 99 mg/dL 12/06/2016 6:[address] [facility] ORDERS INTERFACE 12/06/2016 5:55 AM CDT 12/06/2016 6:44 AM CDT us Generic Conversion Md [facility] POCT ORDERABLES - DEVIC E Final Result [facility] ORDERS INTERFACE US * MRSA SCREENING (12/06/2016 2:30 AM CDT) SPEC DESCRIPTION NASAL 12/06/2016 2:30 AM CDT [facility] SPECIAL REQUESTS NO SPECIAL REQUEST 12/06/2016 2:30 AM CDT [facility] CULTURE RESULT METHICILLIN RESISTANT STAPH AUREUS PRESENT FOLLOW ISOLATION PROTOCOL. 12/07/2016 7:41 AM CDT [facility] CULTURE RESULT POSITIVE RESULTS NEED PHONED TO PHYSICIAN, BY NURSING STAFF, MALDONADO, FOR POSSIBLE DECOLONIZATION PROTOCOL ORDERS. 12/07/2016 7:41 AM CDT [facility] SPECIMEN FROM INTERNAL NOSE / Unknown 12/06/2016 2:30 AM CDT 12/06/2016 2:35 AM CDT us Generic Conversion Md [facility] - GENERAL ORDERABLES Final Result [facility] [address] [place] [address], [place] [phone] * (ABNORMAL) HEPATIC FUNCTION PANEL (12/05/2016 10:37 PM CDT) BILIRUBIN TOTAL S/P/B 0.6 0.2 - 1.2 mg/dL 12/05/2016 11:49 PM CDT [facility] ALKALINE PHOSPHATASE S/P/B 52 35 - 104 U/L 12/05/2016 11:49 PM CDT [facility] AST 30 0 - 32 U/L 12/05/2016 11:49 PM CDT [facility] TOTAL PROTEIN S/P/B 7.2 6.4 - 8.3 g/dL 12/05/2016 11:49 PM CDT [facility] ALBUMIN S/P/B 3.4(L) 3.5 - 5.2 g/dL 12/05/2016 11:49 PM CDT [facility] ALT 24 0 - 33 U/L 12/05/2016 11:49 PM CDT [facility] BILIRUBIN DIRECT S/P/B <0.20 0.0 - 0.3 mg/dL 12/05/2016 11:49 PM CDT [facility] BILIRUBIN INDIRECT S/P/B NOT CALCULATED 0.0 - 0.9 mg/dL 12/05/2016 11:49 PM CDT [facility] GLOBULIN 3.8(H) 2.3 - 3.6 g/dL 12/05/2016 11:49 PM CDT [facility] A/G RATIO 0.9(L) 1.0 - 2.0 12/05/2016 11:49 PM CDT [facility] 12/05/2016 10:3 7 PM CDT 12/05/2016 10:54 PM CDT us Generic Conversion Md [facility] Final R esult [facility] [address] [place] [address], * CULTURE, BACTERIA, BLOOD (12/05/2016 10:37 PM CDT) SPEC DESCRIPTION BLOOD 12/05/2016 10:07 PM CDT [facility] SPECIAL REQUESTS NO SPECIAL REQUEST 12/05/2016 10:07 PM CDT [facility] CULTURE RESULT NO GROWTH 5 DAYS 12/10/2016 12:41 PM CDT [facility] BLOOD SPECIMEN OBTAINED FOR BLOOD CULTURE / Unknown 12/05/2016 10:37 PM CDT 12/05/2016 10:54 PM CDT us Generic Conversion Md [facility] - GENERAL ORDERABLES Final Result Performing Organization Address [facility]/ZIP Co de Phone Number [facility] [address] [place] [address], * CULTURE, BACTERIA, BLOOD (12/05/2016 10:37 PM CDT) SPEC DESCRIPTION BLOOD 12/05/2016 10:07 PM CDT [facility] SPECIAL REQUESTS NO SPECIAL REQUEST 12/05/2016 10:07 PM CDT [facility] CULTURE RESULT NO GROWTH 5 DAYS 12/10/2016 12:41 PM CDT [facility] BLOOD SPECIMEN OBTAINED FOR BLOOD CULTURE / Unknown 12/05/2016 10:37 PM CDT 12/05/2016 10:54 PM CDT us Generic Conversion Md [facility] - GENERAL ORDERABLES Final Result [facility] [address] [place] [address], [place] [phone] * LIPASE (12/05/2016 10:37 PM CDT) LIPASE 20 13 - 60 U/L 12/05/2016 11:49 PM CDT [facility] SERUM OR PLASMA SPECIMEN / Unknown 12/05/2016 10:37 PM CDT 12/05/2016 10:54 PM CDT us Generic Conversion [facility] Final R esult Performing Organization Address [facility]/ZIP Co de Phone Number [facility] [address] [place] [address], [place] [phone] * CK (CPK) (12/05/2016 10:37 PM CDT) CPK 51 26 - 192 U/L 12/05/2016 11:49 PM CDT [facility] SERUM OR PLASMA SPECIMEN / Unknown 12/05/2016 10:37 PM CDT 12/05/2016 10:54 PM CDT us Generic Conversion [facility] Final R esult Performing Organization Address [facility] Co de Phone Number [facility] [address] [place] [address], [place] [phone] * (ABNORMAL) URINALYSIS WI REFLEX TO CULTURE (12/05/2016 6:12 PM CDT) SOURCE (FLUID) URINE CLEAN CATCH 12/05/2016 5:07 PM CDT [facility] COLOR (U) YELLOW 12/05/2016 6:33 PM CDT [facility] TRANSPARENCY CLEAR 12/05/2016 6:33 PM CDT [facility] SPECIFIC GRAVITY (U) 1.017 1.001 - 1.030 12/05/2016 6:33 PM CDT [facility] U PH 8.0 5.0 - 9.0 12/05/2016 6:33 PM CDT [facility] LEUKOCYTES (U) NEGATIVE NEGATIVE 12/05/2016 6:33 PM CDT [facility] NITRITES NEGATIVE NEGATIVE 12/05/2016 6:33 PM CDT [facility] PROTEIN (U) NEGATIVE <30 MG/DL 12/05/2016 6:33 PM CDT [facility] URINE GLUCOSE NEGATIVE NEGATIVE MG/DL 12/05/2016 6:33 PM CDT [facility] KETONES MG/DL (U) NEGATIVE NEGATIVE MG/DL 12/05/2016 6:33 PM CDT [facility] UROBILINOGEN NEGATIVE NEGATIVE MG/DL 12/05/2016 6:33 PM CDT [facility] BILIRUBIN (U) NEGATIVE NEGATIVE MG/DL 12/05/2016 6:33 PM CDT [facility] BLOOD (U) SMALL(A) NEGATIVE 12/05/2016 6:33 PM CDT [facility] CULTURE & SENSITIVITY INDICATED? CULTURE IS NOT INDICATED 12/05/2016 6:33 PM CDT [facility] SQUAMOUS EPITHELIALS MANY /LPF 12/05/2016 6:33 PM CDT [facility] MUCUS RARE /LPF 12/05/2016 6:33 PM CDT [facility] WBC/HPF 2 <6 /HPF 12/05/2016 6:33 PM CDT [facility] RBC/HPF 5 <6 /HPF 12/05/2016 6:33 PM CDT [facility] 12/05/2016 6:12 PM CDT 12/05/2016 6:16 PM CDT us Generic Conversion Md [facility] URINE ORDERABLES Final Result [facility] [address] [place] [address], * LACTIC ACID (12/05/2016 5:22 PM CDT) LACTIC ACID VENOUS 1.35 0.5 - 2.2 mmol/L 12/05/2016 5:44 PM CDT [facility] Comment: NOTE: Acetaminophen, N Acetyl [...] Conversion [facility] Final R esult [facility] [address] [place] [address], * (ABNORMAL) CBC W/DIFF AUTOMATED (12/05/2016 5:22 PM CDT) WBC 9.1 4.8 - 10.8 x10'3/uL 12/05/2016 5:28 PM CDT [facility] RBC 4.37 4.20 - 5.40 x10'6/uL 12/05/2016 5:28 PM CDT [facility] HGB 12.5 12.0 - 16.0 G/DL 12/05/2016 5:28 PM CDT [facility] HCT 38.7 38.0 - 48.0 % 12/05/2016 5:28 PM CDT [facility] MCV 88.6 81.0 - 99.0 FL 12/05/2016 5:28 PM CDT [facility] MCH 28.6 27.0 - 31.0 PG 12/05/2016 5:28 PM CDT [facility] MCHC 32.3 32.0 - 36.0 G/DL 12/05/2016 5:28 PM CDT [facility] RDW 13.8 11.5 - 14.5 % 12/05/2016 5:28 PM CDT [facility] PLT 265 130 - 400 x10'3/uL 12/05/2016 5:28 PM CDT [facility] MPV 9.4 9.3 - 12.2 FL 12/05/2016 5:28 PM CDT [facility] IMMATURE GRANS % 0.4 0.0 - 1.0 % 12/05/2016 5:28 PM CDT [facility] NEUTROPHILS % 84.1(H) 43.0 - 65.0 % 12/05/2016 5:28 PM CDT [facility] LYMPHOCYTES % 6.9(L) 20.0 - 46.0 % 12/05/2016 5:28 PM CDT [facility] MONOCYTES % 6.1 5.0 - 12.0 % 12/05/2016 5:28 PM CDT [facility] EOSINOPHILS 2.4 1.0 - 3.0 % 12/05/2016 5:28 PM CDT [facility] BASOPHILS 0.1 0.0 - 1.0 % 12/05/2016 5:28 PM CDT [facility] WHOLE BLOOD SPECIMEN / Unknown 12/05/2016 5:22 PM CDT 12/05/2016 5:25 PM CDT us Generic Conversion Md [facility] Final R esult [facility] [address] [place] [address], * (ABNORMAL) BASIC METABOLIC PANEL (12/05/2016 5:22 PM CDT) GLUCOSE 146(H) 70 - 99 mg/dL 12/05/2016 5:41 PM CDT [facility] BUN 9 8 - 23 mg/dL 12/05/2016 5:41 PM CDT [facility] CREATININE S/P/B 0.66 0.60 - 1.10 mg/dL 12/05/2016 5:41 PM CDT [facility] SODIUM S/P/B 137 136 - 145 mmol/L 12/05/2016 5:41 PM CDT [facility] POTASSIUM S/P/B 4.5 3.5 - 5.1 mmol/L 12/05/2016 5:41 PM CDT [facility] CHLORIDE S/P/B 100 98 - 107 mmol/L 12/05/2016 5:41 PM CDT [facility] CO2 26 22 - 29 mmol/L 12/05/2016 5:41 PM CDT [facility] CALCIUM S/P/B 9.4 8.6 - 10.2 mg/dL 12/05/2016 5:41 PM CDT [facility] ANION GAP 16 8 - 20 12/05/2016 5:41 PM CDT [facility] EGFR NON-AFR. AMER. >60 >60 mL/min/1.7 3m'2 12/05/2016 5:41 PM CDT [facility] EGFR AFR. AMER. >60 >60 mL/min/1.7 '2 12/05/2016 5:41 PM CDT [facility] Comment: NOTE: eGFR is not calculated for patients <18 years of age. This is an estimated GFR (CKD EPI) and should not be used for calculating drug doses. 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
--- OUTSIDE RECORDS SUMMARY | 2024-04-26 07:03 | XMS_ITS | Encounter Summary ---
Author Organization [facility] Address [address] [place] [address]. [place] [address] [place] [address] Care Team Providers Care Assistant Production Manager Name Role Phone Meena Bansal MD Unavailable [phone] Gerardo Hoffman MD Primary Care Provider [phone] Reason for Referral * Imaging (Urgent) - Closed Specialty Diagnoses / Procedures Referred By Contac t Referred To Contact Procedures NM PHARM NUC STRESS TEST 1DAY Mone Carrillo MD [address] [place] [address] Phone: tel: fax: Referral ID Status Reason Start Date Expiration Date Visits Re quested Visits Authorized [id number] Closed 03/18/2018 04/17/2019 1 1 RIPSAW OPERATOR * (Routine) - Canceled Specialty Diagnoses / Procedures Referred By Contac t Referred To Contact Procedures PT eval and treat Noemi Sunshine MD [address] [place] [address] Phone: tel: fax: Referral ID Status Reason Start Date Expiration Date V isits Requested Visits Authorized [id number] Canceled 03/18/2018 04/17/2019 1 1 RIPSAW OPERATOR * (Routine) - Closed Specialty Diagnoses / Procedures Referred By Contac t Referred To Contact Procedures Stress Test (Walking) Noemi Sunshine MD [address] [facility] [address] [place] [address] Phone: tel: fax: Referral ID Status Reason Start Date Expiration Date Visits Re quested Visits Authorized [id number] Closed 03/18/2018 04/17/2019 1 1 RIPSAW OPERATOR Reason for Visit * Reason Comments Breathing Problem * Auth/Cert Specialty Diagnoses / Procedures Referred By Contac t Referred To Contact Diagnoses Shortness of breath ACS (acute coronary syndrome) (HCC) Referral ID Status Reason Start Date Expiration Date Visits Re quested Visits Authorized [id number] 1 1 Encounter Details Date Type Department Care Team (Late st Contact Info) Description 03/17/2018 9:47 PM BAND RIPSAW OPERATOR - 03/18/2018 2:40 PM BAND RIPSAW OPERATOR Emergency [facility] Telemetry Unit [address] [place], [place] [address] Joann Casillas, [facility] [address] [facility] [address] [place] [address] Rebecca Moyer MD 3 [facility] [address] [place], [place] [address] Breathing Problem Discharge Disposition: Home or Self [...] Sexual Orientation Straight 03/18/2018 3: 01 AM BAND RIPSAW OPERATOR documented as of this encounter Last Filed Vital Signs Vital Sign Reading Time Taken Comments Blood Pressure 118/73 03/18/2018 11:27 AM BAND RIPSAW OPERATOR Pulse 76 03/18/2018 11:27 AM BAND RIPSAW OPERATOR Temperature 36.6 ??C (97.8 ??F) 03/18/2018 4:03 AM CS T Respiratory Rate 18 03/18/2018 11:27 AM BAND RIPSAW OPERATOR Oxygen Saturation 98% 03/18/2018 11:27 AM BAND RIPSAW OPERATOR Inhaled Oxygen Concentration - - Weight 130 kg (286 lb 9.6 oz) 03/18/2018 4:03 AM BAND RIPSAW OPERATOR Height 154.9 cm (5' 1 ) 03/17/2018 9:37 PM BAND RIPSAW OPERATOR Body Mass Index 54.15 03/17/2018 9:37 PM BAND RIPSAW OPERATOR documented in this encounter Discharge Summaries * Mone Carrillo MD - 03/18/2018 2:40 PM CST Physician Discharge Summary Patient ID: Mohsen Marques [id number] 62-year-old 1955 Admit date: 03/17/2018 Expected Discharge [...] to follow. Treatments: IV hydration and analgesia: [place] Discharge Exam: Constitutional: She is oriented to [...] Rebecca Moyer MD at 03/19/2018 2:59 PM BAND RIPSAW OPERATOR RIPSAW OPERATOR RIPSAW OPERATOR Associated attestation - Rebecca Moyer MD - 03/19/2018 2:59 PM BAND RIPSAW OPERATOR I saw this patient and agree with the written findings. Rebecca Moyer MD documented in this encounter Discharge Instructions * Discharge Instructions* Tamika Sage RN - 03/18/2018 1:27 PM BAND RIPSAW OPERATOR Images from the original note were not included. Patient Education Shortness of Breath (Dyspnea) The Basics Written by the doctors and editors at [facility] What is shortness of breath???--??People who have [...] process is complete. This topic retrieved from [employer] on: Apr 27, 2017. Topic 07773 Version 6.0 Release: 25.6.2-122 - C26.3 ?2018??[employer] and/or its affiliates.??All rights reserved. Consumer Information [...] that is right for you.The use of [employer] content is governed by the [employer] Terms of Use. ??2018 [employer]. All rights reserved. Copyright ?2018??[employer] and/or its affiliates.??All rights reserved. Patient Education [...] or swelling. Where can I learn more? [place] [employer] http://www.thoracic.org/patients/patient-resources/resources/breathlessness.pdf [place] [employer] http://www.thoracic.org/patients/patient-resources/resources/sudden-breathlessne ss.pdf FamilyDoctor.org http://familydoctor.org/familydoctor/en/diseases-conditions/ejugfxnwh-jp-nhczix. html [facility] http://www.cc.nih.gov/[facility]/patient_education/pepubs/dyspnea.pdf Last Reviewed Date 2015-02-13 Consumer Information Use [...] right for you. Copyright Copyright ?? 2018 [employer]. and its affiliates and/or licensors. All rights reserved. RIPSAW OPERATOR documented in this encounter Medications at [...] for high risk VTE Thank you, Pharmacy RIPSAW OPERATOR * Dannielle Hernández RN - 03/18/2018 12:48 PM CST Problem: Activity Intolerance Goal: Improved activity tolerance Outcome: Progressing Patient has improved activity tolerance this shift RIPSAW OPERATOR * Duarte Garcia PharmD - 03/18/2018 12:31 PM CST VTE risk score: 5+ based on age and history of VTE VTE risk stratification: none VTE ppx: rivaroxaban (home med) Will stratify as high risk and add SCDs RIPSAW OPERATOR * Mone Carrillo MD - 03/18/2018 11:08 [...] Rebecca Moyer MD at 03/18/2018 11:25 AM BAND RIPSAW OPERATOR RIPSAW OPERATOR RIPSAW OPERATOR RIPSAW OPERATOR Associated attestation - Rebecca Moyer MD - 03/18/2018 11:25 AM BAND RIPSAW OPERATOR I saw this patient and agree with [...] DM, may result in impaired gastric motility RIPSAW OPERATOR * Noemi Sunshine MD - 03/18/2018 2:54 AM CSTAssociated Problem(s): History of DVT (deep vein thrombosis) Chronic - Continue home Xarelto RIPSAW OPERATOR * Noemi Sunshine MD - 03/18/2018 2:54 AM CSTAssociated Problem(s): Restless legs syndrome Chronic -Continue home ropinirole RIPSAW OPERATOR * Noemi Sunshine MD - 03/18/2018 2:53 AM CSTAssociated Problem(s): LUL (obstructive sleep apnea) Chronic, on CPAP at home - Continue home CPAP RIPSAW OPERATOR * Noemi Sunshine MD - 03/18/2018 2:51 AM CSTAssociated Problem(s): Type 2 diabetes mellitus ([facility]/HCC HHS/HCC) Chronic, patient reports medical compliance with 50 units of Lantus daily and 15 units of Humalog before meals. No recent HbA1c - Monitor POC glucose -[place] home regimen - Consider sliding scale insulin -Follow-up HbA1c RIPSAW OPERATOR * Noemi Sunshine MD - 03/18/2018 2:50 AM CSTAssociated Problem(s): High blood pressure Chronic, BPs currently 127/78 - To new home meds RIPSAW OPERATOR * Noemi Sunshine MD - 03/18/2018 2:45 AM CSTAssociated Problem(s): ACS (acute coronary syndrome) ([facility]) Acute, patient reported as epigastric pain however may be atypical presentation. Troponins negativex2. Also in differential is GERD, PUD - Admit to observation -Follow-up troponins -Monitor vitals -N.p.o. at midnight - Stress echo in a.m. - Consider cardiology consult based on results of stress test -Begin Protonix RIPSAW OPERATOR RIPSAW OPERATOR documented in this encounter H&P Notes [...] No results for input(s): PH, PCO2, PO2, D0UZESIEYEWS, BICARBWB, BASEDEFICIT, BASEEXCESS in the [id number] hours. Cultures: Blood: No results found for this visit on 03/17/18 (from the past 168 hour(s)). Urine: No results found for this visit on 03/17/18 (from the past 168 hour(s)). Cardiac: Results for orders placed or performed during the hospital encounter of 03/17/18 ECG [address] [facility] [address] [place] [address] Test Date: 2018-03-17 Pat Name: MOHSEN MARQUES Department: 41 Room: [facility] Gender: Female Bar Roller: [facility] : 1955 Requested By: RIMA THACKER Order Number: [id number] Reading MD: Lazaro Givens Measurements Intervals [place] Rate: 72 P: 33 IA: 128 QRS: 17 QRSD: 93 T: 53 QT: 365 QTc: 400 Interpretive Statements SINUS RHYTHM NONSPECIFIC T-WAVE ABNORMALITY Compared to ECG 08/20/2017 13:15:35 No significant changes Preliminary EKG interpretation by ED Physician Jeremías Jiménez M.D. No ischemic changes CRITICAL ALERT ISSUED ON 03-17-2018 22:09:09 RIPSAW OPERATOR Radiology studies: XR CHEST PA+LAT Final Result by User, [id number] (03/175) EXAMINATION: CHEST X-RAY TWO VIEWS EXAM TIME: [...] No recent HbA1c - Monitor POC glucose -[place] home regimen - Consider sliding scale insulin -Follow-up HbA1c Other History of DVT (deep vein thrombosis) Assessment & Plan Chronic - Continue home Xarelto Fluids: NS 100 cc/hour Diet: N.p.o. VTE Prophylaxis: On Xarelto DISPOSITION: Pending stress echo in a.m. Plan discussed with attending physician. NOEMI SUNSHINE MD Family Medicine, PGY-1 Cosigned by Rebecca Moyer MD at 03/18/2018 11:28 AM BAND RIPSAW OPERATOR RIPSAW OPERATOR RIPSAW OPERATOR RIPSAW OPERATOR Associated attestation - Rebecca Moyer MD - 03/18/2018 11:28 AM BAND RIPSAW OPERATOR I saw this patient and agree with the written findings. Rebecca Moyer MD documented in this encounter ED Notes * Marin Brownlee RN - 03/17/2018 11:46 PM CST Bed weight on pt is 128.9 kg. RIPSAW OPERATOR * Joann Montero Vinny, SALES AGENT [employer] - 03/17/2018 11:42 PM CST Chief Complaint [...] encounter of 03/17/18 ECG 12 lead Narrative [place] Test Date: 2018-03-17 Pat Name: MOHSEN MARQUES Department: 41 Room: [facility] Gender: Female Bar Roller: [facility] : 1955 Requested By: RIMA THACKER Order Number: [id number] Reading MD: Measurements Intervals [place] Rate: 72 P: 33 IA: 128 QRS: 17 QRSD: 93 T: 53 [...] XR CHEST PA+LAT Final Result by User, [email or web address] (03/17 1703) EXAMINATION: CHEST X-RAY TWO VIEWS EXAM TIME: [...] Jeremías Jiménez MD at 03/18/2018 6:10 AM BAND RIPSAW OPERATOR RIPSAW OPERATOR RIPSAW OPERATOR * HUMAIRA Velazquez - 03/17/2018 9:49 PM CST [place], [place] EMERGENCY DEPARTMENT ENCOUNTER Medical Screening Examination [...] Plan: labs, ekg, xray HUMAIRA Velazquez 03/17/182151 RIPSAW OPERATOR * Jennifer Dennison RN - 03/17/2018 9:35 PM CST 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 Pt reports being sick since thanksgiving. Reports trouble breathing when she lays down and with exertion. Pt reports some nausea and vomiting along with malaise. No diarrhea, no fevers. Denies respiratory conditions but has pulmonary hypertension. No respiratorydistress at this time JENNIFER DENNISON RN RIPSAW OPERATOR RIPSAW OPERATOR documented in this encounter Plan of Treatment Not on file documented as of this encounter Procedures Procedure Name Priority Date/Time Associated Diagnosis Comments NM PHARM NUC STRESS TEST 1DAY Today 03/18/2018 11:49 AM BAND RIPSAW OPERATOR POCT GLUCOSE - SAVAGE DOCKED DEVICE Routine 03/18/2018 11:25 AM BAND RIPSAW OPERATOR POCT GLUCOSE - SAVAGE DOCKED DEVICE Routine 03/18/2018 6:45 AM BAND RIPSAW OPERATOR TROPONIN, QUANT STAT 03/18/2018 5:15 AM BAND RIPSAW OPERATOR MRSA SCREENING Routine 03/18/2018 4:46 AM BAND RIPSAW OPERATOR TROPONIN, QUANT STAT 03/18/2018 1:35 AM BAND RIPSAW OPERATOR STRESS TEST ONLY, EXERCISE STAT 03/18/2018 12:43 AM BAND RIPSAW OPERATOR XR CHEST PA+LAT STAT 03/17/2018 11:13 PM BAND RIPSAW OPERATOR HEMOGLOBIN, GLYCOSYLATED Routine 03/17/2018 10:08 PM BAND RIPSAW OPERATOR INFLUENZA A & B STAT 03/17/2018 10:08 PM BAND RIPSAW OPERATOR BNP STAT 03/17/2018 10:08 PM BAND RIPSAW OPERATOR COMPREHENSIVE METABOLIC PANEL STAT 03/17/2018 10:08 PM BAND RIPSAW OPERATOR CBC W/DIFF AUTOMATED STAT 03/17/2018 10:08 PM BAND RIPSAW OPERATOR TROPONIN, QUANT STAT 03/17/2018 10:08 PM BAND RIPSAW OPERATOR ECG 12-LEAD STAT 03/17/2018 10:02 PM BAND RIPSAW OPERATOR documented in this encounter Results * NM PHARM NUC STRESS TEST 1DAY (03/18/2018 11:49 AM BAND RIPSAW OPERATOR) Anatomical Region Laterality Modality Cardiac Nuclear Medicine 03/18/2018 10:2 1 AM BAND RIPSAW OPERATOR Narrative 03/18/2018 11:45 AM BAND RIPSAW OPERATOR ? Myocardial Perfusion Imaging ? Pat.Name: ??MARIE MOHSEN M ?Pat.ID: ?[id number] ? St.Date: ?? 03/18/2018 ?Refer.MD: ??Mone Carrillo ? Exam Time: 10:21:00 AM ? Study Type:EUGENIO NC HT MUSCLE IMAGE SPECT MULTI Height: ?61in ?Weight: ?276lb ? BSA: ? 2.17 m2 ?Age: ??1955,62Y ? Sex: ? FEMALE ?Sonogrphr: Dom Noyola, SENIOR DRUPAL DEVELOPER ? Pat. Stat.:Inpatient ? Room: ?B454 ? [...] ?O2 Sat ? 97 % Max RPP ?15671 ? Symptoms and Complications: Terminated Protocol completed Symptoms ?? Headache, Nausea Complications None Stress ECG Interp No ST segment changes diagnostic of ischemia, Non-specific T wave flattening Signed 03/18/2018 11:45 AM Lazaro Givens M.D. Procedure Note Lazaro Givens MD - 03/18/2018 Myocardial Perfusion Imaging Pat.Name: MOHSEN MARQUES Pat.ID: [id number] St.Date: 03/18/2018 Refer.MD: Mone Carrillo Exam Time: 10:21:00 AM Study Type:EUGENIO NM HT MUSCLE IMAGE SPECT MULTI Height: 61in [...] 123/61 O2 Sat 97 % Max RPP [id number] Symptoms and Complications: Terminated Protocol completed Symptoms Headache, Nausea Complications None Stress ECG Interp No ST segment changes diagnostic of ischemia, Non-specific T wave flattening Signed 03/18/2018 11:45 AM Lazaro Givens M.D. Mone Carrillo MD [facility] Final Result * (ABNORMAL) POCT glucose (03/18/2018 11:25 AM BAND RIPSAW OPERATOR) GLUCOSE POC 178(H) 70 - 99 mg/dL 03/18/2018 11:49 AM BAND RIPSAW OPERATOR [facility] ORDERS INTERFACE 03/18/2018 11:2 5 AM BAND RIPSAW OPERATOR us Rebecca Moyer MD POCT ORDERABLES - DEVICE F inal Result Performing Organization Address [facility] de Phone Number [facility] ORDERS INTERFACE US * (ABNORMAL) POCT glucose (03/18/2018 6:45 AM BAND RIPSAW OPERATOR) GLUCOSE POC 195(H) 70 - 99 mg/dL 03/18/2018 6:57 AM BAND RIPSAW OPERATOR [facility] ORDERS INTERFACE 03/18/2018 6:45 AM BAND RIPSAW OPERATOR Rebecca Moyer MD POCT ORDERABLES - DEVICE F inal Result Performing Organization Address [facility] de Phone Number [facility] ORDERS INTERFACE US * TROPONIN, QUANT (03/18/2018 5:15 AM BAND RIPSAW OPERATOR) TROPONIN I <0.015 <0.045 ng/mL. 03/18/2018 5:45 AM BAND RIPSAW OPERATOR [facility] Comment: HIGH DOSES OF BIOTIN MAY INTERFERE WITH THIS TEST RESULT. CORRELATION TO CLINICAL HISTORY AND PRESENTATION RECOMMENDED. 03/18/2018 5:15 AM BAND RIPSAW OPERATOR us Radhika Adamson MD LABORATORY Final Result Performing Organization Address [facility]/State/ZIP Co de Phone Number [facility] [address] [place] [address], * MRSA SCREENING (03/18/2018 4:46 AM BAND RIPSAW OPERATOR) SPEC DESCRIPTION NASAL 03/18/2018 4:46 AM BAND RIPSAW OPERATOR [facility] SPECIAL REQUESTS NO SPECIAL REQUEST Successful Call: CULT,RPT,SDES,SRE Q called 03/19/2018 08:02 AM to [facility] [employer] [facility] ([id number]/NO,CALL) by [id number]. 03/18/2018 4:46 AM BAND RIPSAW OPERATOR [facility] CULTURE RESULT METHICILLIN RESISTANT STAPH AUREUS PRESENT FOLLOW ISOLATION PROTOCOL. 03/19/2018 8:02 AM BAND RIPSAW OPERATOR [facility] CULTURE RESULT POSITIVE RESULTS NEED PHONED TO PHYSICIAN, BY NURSING STAFF, MALDONADO, FOR POSSIBLE DECOLONIZATION PROTOCOL ORDERS. Successful Call: CULT,RPT,SDES,SRE Q called 03/19/2018 08:02 AM to [facility] [employer] [facility] ([id number]/NO,CALL) by [id number]. 03/19/2018 8:02 AM BAND RIPSAW OPERATOR [facility] SPECIMEN FROM INTERNAL NOSE / Unknown 03/18/2018 4:46 AM BAND RIPSAW OPERATOR 03/18/2018 5:04 AM BAND RIPSAW OPERATOR Rebecca Moyer MD MICROBIOLOGY - GENERAL ORD ERABLES Final Result [facility] [address] [place] [address], * TROPONIN, QUANT (03/18/2018 1:35 AM BAND RIPSAW OPERATOR) TROPONIN I <0.015 <0.045 ng/mL. 03/18/2018 1:57 AM BAND RIPSAW OPERATOR [facility] Comment: HIGH DOSES OF BIOTIN MAY INTERFERE WITH THIS TEST RESULT. CORRELATION TO CLINICAL HISTORY AND PRESENTATION RECOMMENDED. 03/18/2018 1:35 AM BAND RIPSAW OPERATOR us Radhika Adamson MD LABORATORY Final Result [facility] [address] [facility] [place] [address], [place] [phone] * XR CHEST PA+LAT (03/17/2018 11:13 PM BAND RIPSAW OPERATOR) Anatomical Region Laterality Modality Chest Radiographic Lizeth ging 03/17/2018 11:1 5 PM BAND RIPSAW OPERATOR Narrative 03/17/2018 11:15 PM BAND RIPSAW OPERATOR EXAMINATION: CHEST X-RAY TWO VIEWS EXAM TIME: [...] Ariza MD, 03/17/2018 11:15 PM Rima Thacker SALES AGENT [employer] GENERAL IMAGING Final Res ult * (ABNORMAL) HEMOGLOBIN, GLYCOSYLATED (03/17/2018 10:08 PM BAND RIPSAW OPERATOR) HGB A1C 7.7(H) <5.7 % 03/18/2018 11:38 AM BAND RIPSAW OPERATOR [facility] Comment: No variants detected ADA GUIDELINES 5.7-6.4% INCREASED RISK FOR FUTURE DIABETES > OR = 6.5% ??DIABETES DIABETIC GOAL ??<7.0% ADDITIONAL ACTION SUGGESTED ??>8.0% National Glycohemoglobin Standardization Program (NGSP) TESTING PERFORMED AT [address] ??[id number] 03/17/2018 10:0 8 PM BAND RIPSAW OPERATOR Joann Casillas SALES AGENT [employer] LABORATORY Final Resul t [facility] [address] [place] [address], [place] [phone] * INFLUENZA A & B (03/17/2018 10:08 PM BAND RIPSAW OPERATOR) SPECIMEN TYPE NASOPHARYNGEAL SWAB 03/17/2018 10:13 PM BAND RIPSAW OPERATOR [facility] INFLUENZA A NEGATIVE NEGATIVE 03/17/2018 10:41 PM BAND RIPSAW OPERATOR [facility] INFLUENZA B NEGATIVE NEGATIVE 03/17/2018 10:41 PM BAND RIPSAW OPERATOR [facility] Comment: Interpretation: Negative for [...] NASOPHARYNGEAL SWAB / Unknown 03/17/2018 10:08 PM BAND RIPSAW OPERATOR Rima Thacker SALES AGENT [employer] MICROBIOLOGY - GENERAL OR DERABLES Final Result Performing Organization Address City/[facility]/ZIP Co de Phone Number [facility] [address] [place] [address], * TROPONIN, QUANT (03/17/2018 10:08 PM BAND RIPSAW OPERATOR) TROPONIN I <0.015 <0.045 ng/mL. 03/17/2018 10:41 PM BAND RIPSAW OPERATOR [facility] Comment: HIGH DOSES OF BIOTIN MAY INTERFERE WITH THIS TEST RESULT. CORRELATION TO CLINICAL HISTORY AND PRESENTATION RECOMMENDED. 03/17/2018 10:0 8 PM BAND RIPSAW OPERATOR Rima Thacker [facility] Final Res ult Performing Organization Address City/[facility]/ZIP Co de Phone Number [facility] [address] [place] [address], [place] [phone] * B-TYPE NATRIURETIC PEPTIDE (03/17/2018 10:08 PM BAND RIPSAW OPERATOR) B TYPE NATRIURETIC PEPTIDE 9 <100 PG/ML 03/17/2018 10:57 PM BAND RIPSAW OPERATOR [facility] 03/17/2018 10:0 8 PM BAND RIPSAW OPERATOR Rima Thacker [facility] Final Res ult [facility] [address] [place] [address], [place] [phone] * (ABNORMAL) COMPREHENSIVE METABOLIC PANEL (03/17/2018 10:08 PM BAND RIPSAW OPERATOR) GLUCOSE 238(H) 70 - 99 MG/DL 03/17/2018 10:41 PM BAND RIPSAW OPERATOR [facility] BUN 18 7 - 18 MG/DL 03/17/2018 10:41 PM BAND RIPSAW OPERATOR [facility] CREATININE S/P/B 0.91 0.55 - 1.02 MG/DL 03/17/2018 10:41 PM [facility] SODIUM S/P/B 139 136 - 145 MMOL/L 03/17/2018 10:41 PM [facility] POTASSIUM S/P/B 4.3 3.5 - 5.1 MMOL/L 03/17/2018 10:41 PM [facility] CHLORIDE S/P/B 106 100 - 108 MMOL/L 03/17/2018 10:41 PM [facility] CO2 28.4 21 - 32 MMOL/L 03/17/2018 10:41 PM [facility] CALCIUM S/P/B 9.0 8.5 - 10.1 MG/DL 03/17/2018 10:41 PM [facility] BILIRUBIN TOTAL S/P/B 0.4 0.2 - 1.2 MG/DL 03/17/2018 10:41 PM [facility] TOTAL PROTEIN S/P/B 8.1 6.4 - 8.2 G/DL 03/17/2018 10:41 PM [facility] ALBUMIN S/P/B 3.2(L) 3.4 - 5.0 G/DL 03/17/2018 10:41 PM [facility] AST 14(L) 15 - 37 U/L 03/17/2018 10:41 PM [facility] ALT 24 14 - 55 U/L 03/17/2018 10:41 PM [facility] ALKALINE PHOSPHATASE S/P/B 102 50 - 136 U/L 03/17/2018 10:41 PM [facility] ANION GAP 8.9 8 - 20 MMOL/L 03/17/2018 10:41 PM [facility] BUN CREATININE RATIO 19.7 6 - 26 03/17/2018 10:41 PM [facility] A/G RATIO 0.7(L) 1.0 - 2.0 RATIO 03/17/2018 10:41 PM [facility] EGFR NON-AFR. AMER. 68(L) >90 ML/MIN/1.7 3 M2 03/17/2018 10:41 PM [facility] EGFR AFR. AMER. 79(L) >90 ML/MIN/1.7 3 M2 03/17/2018 10:41 PM [facility] Comment: NOTE: eGFR is not calculated for patients <18 years of age. This is an estimated GFR (CKD EPI) and should not be used for calculating drug doses. 03/17/2018 10:0 8 PM BAND RIPSAW OPERATOR Rima Thacker [facility] Final Res ult [facility] [address] [place] [address], [place] [phone] * (ABNORMAL) CBC W/DIFF AUTOMATED (03/17/2018 10:08 PM BAND RIPSAW OPERATOR) WBC 10.2 4.5 - 11.0 x10'3/uL 03/17/2018 10:24 PM [facility] RBC 4.49 4.20 - 5.40 x10'6/uL 03/17/2018 10:24 PM [facility] HGB 12.2 12.0 - 16.0 G/DL 03/17/2018 10:24 PM [facility] HCT 39.8 38.0 - 48.0 % 03/17/2018 10:24 PM [facility] MCV 88.6 80.0 - 94.0 FL 03/17/2018 10:24 PM [facility] MCH 27.2 27.0 - 31.0 PG 03/17/2018 10:24 PM [facility] MCHC 30.7(L) 32.0 - 36.0 G/DL 03/17/2018 10:24 PM [facility] RDW 14.6(H) 11.5 - 14.5 % 03/17/2018 10:24 PM [facility] PLT 317 130 - 400 x10'3/uL 03/17/2018 10:24 PM [facility] MPV 9.8 9.3 - 12.2 FL 03/17/2018 10:24 PM [facility] DIFFERENTIAL TYPE AUTOMATED DIFFERENTIAL 03/17/2018 10:24 PM [facility] NEUTROPHILS % 64.5 % 03/17/2018 10:24 PM [facility] LYMPHOCYTES % 23.6 % 03/17/2018 10:24 PM [facility] MONOCYTES % 7.6 % 03/17/2018 10:24 PM [facility] EOSINOPHILS 3.7 % 03/17/2018 10:24 PM [facility] BASOPHILS 0.4 % 03/17/2018 10:24 PM [facility] IMMATURE GRANS % 0.2(H) 0 % 03/17/20 18 10:24 PM [facility] ABS. NEUTROPHILS TOTAL 6.59 1.80 - 7.70 x10'3/uL 03/17/2018 10:24 PM [facility] ABS. LYMPHOCYTES 2.41 1.00 - 4.80 x10'3/uL 03/17/2018 10:24 PM [facility] ABS. MONOCYTES 0.78 0.24 - 0.86 x10'3/uL 03/17/2018 10:24 PM BAND RIPSAW OPERATOR [facility] ABS. EOSINOPHILS 0.38(H) 0.04 - 0.36 x10'3/uL 03/17/2018 10:24 PM BAND RIPSAW OPERATOR [facility] ABS. BASOPHILS 0.04 0.01 - 0.08 x10'3/uL 03/17/2018 10:24 PM BAND RIPSAW OPERATOR [facility] ABS. IMMATURE GRANULOCYTES 0.02 0.00 - 0.03 x10'3/uL 03/17/2018 10:24 PM BAND RIPSAW OPERATOR [facility] 03/17/2018 10:0 8 PM BAND RIPSAW OPERATOR us Rima Thacker SALES AGENT [employer] LABORATORY Final Res ult [facility] [address] [place] [address], * ECG 12 lead (03/17/2018 10:02 PM BAND RIPSAW OPERATOR) 03/17/2018 10:0 2 PM BAND RIPSAW OPERATOR Narrative [facility] - 03/18/2018 4:49 AM BAND RIPSAW OPERATOR ?[facility] ? [address] [facility] ? Test Date: ?2018-03-17 Pat Name: ? MOHSEN MARQUES ?Department: ?? 41 ? Room: ? B454 Gender: ? Female ? Bar Roller: ?? pch : ?1955 ? Requested By: RIMA THACKER Order Number: [id number] ? Reading MD: ?? Lazaro Givens ? Measurements Intervals ?[place] ? Rate: ? 72 ? P: ?33 IA: ? 128 ?QRS: ?17 QRSD: ? 93 ? T: ?53 QT: ? 365 ? QTc: ?400 ? Interpretive Statements SINUS RHYTHM NONSPECIFIC T-WAVE ABNORMALITY Compared to ECG 08/20/2017 13:15:35 No significant changes Preliminary EKG interpretation by ED Physician Jeremías Jiménez M.D. No ischemic changes CRITICAL ALERT ISSUED ON 03-17-2018 22:09:09 RIPSAW OPERATOR Procedure Note Lazaro Givens MD - 03/18/[address] Test Date: 2018-03-17 Pat Name: MOHSEN MARQUES Department: 41 Room: [facility] Gender: Female Bar Roller: [facility] : 1955 Requested By: RIMA THACKER Order Number: [id number] Reading MD: Lazaro Givens Measurements Intervals [place] Rate: 72 P: 33 IA: 128 QRS: 17 QRSD: 93 T: 53 QT: 365 QTc: 400 Interpretive Statements SINUS RHYTHM NONSPECIFIC T-WAVE ABNORMALITY Compared to ECG 08/20/2017 13:15:35 No significant changes Preliminary EKG interpretation by ED Physician Jeremías Jiménez M.D. No ischemic changes CRITICAL ALERT ISSUED ON 03-17-2018 22:09:09 RIPSAW OPERATOR Rima Thacker SALES AGENT [employer] CONTR[employer]ICE ECG ORDERABLES Final Res ult [facility] [address] [place] [id number], documented in this encounter Visit Diagnoses Diagnosis ACS (acute coronary syndrome) ([facility])- Primary Intermediate coronary syndrome Shortness of breath Hypertension Unspecified essential hypertension Type 2 diabetes mellitus ([facility]) Type II or unspecified type diabetes mellitus [...] meal, , Patient's own medication identified by [facility] ED: JESUS AMATO, YordyD Identified #[id number], Date: 03/18/18 4:49 AM, , STORED IN PATIENT SPECIFIC BIN IN [employer], , * Remember to send medication home with patient at discharge* Given 03/18/2018 5:36 AM BAND RIPSAW OPERATOR 25 mg Generic Radiopharmaceutical 33 millicurie 33 millicurie, Intravenous, IMG once as needed, 33 mCi Myoview Stress, 1 dose, Starting on 03/18/18 at 1149, Until 03/18/18 at 0930 Given 03/18/2018 9:30 AM BAND RIPSAW OPERATOR 33 millicuries hydrocodone-acetaminophen (NORCO) 5-325 MG tablet 1 tablet 1 tablet, Oral, 3 times daily PRN, Moderate pain (Scale 4 - 7), Starting on 03/18/18 at 0600, Until 03/18/18 at 1640, Maximum dose of acetaminophen is 4000 mg from all sources in 24 hours. Given 03/18/2018 1:13 PM BAND RIPSAW OPERATOR 1 tablet insulin glargine (LANTUS) injection 50 Units 50 Units, Subcutaneous, Every morning, First dose on 03/18/18 at 0700, Until Discontinued insulin lispro (HUMALOG) injection 15 Units 15 Units, Subcutaneous, 3 times daily before meals, First dose on 03/18/18 at 0700, Until Discontinued, For sliding scale, activate Sliding Scale Insulin order setPatient also uses sliding scale. Given 03/18/2018 1:14 PM BAND RIPSAW OPERATOR 15 Units oxybutynin (DITROPAN) tablet 5 mg 5 mg, Oral, 2 times daily, First dose on 03/18/18 at 0900, Until Discontinued Given 03/18/2018 11:22 AM BAND RIPSAW OPERATOR 5 mg pantoprazole (PROTONIX) 40 MG injection [...] least 2 minutes. Given 03/18/2018 1:34 AM BAND RIPSAW OPERATOR 40 mg polyethylene glycol (GLYCOLAX) packet 17 g 17 g, Oral, DAILY PRN, CONSTIPATION, Starting on 03/18/18 at 0349, Until 03/18/18 at 1640, Dissolve powder in 240 mL water regadenoson (LEXISCAN) injection 0.4 mg 0.4 mg, Intravenous, Once, 1 dose, On 03/18/18 at 0930, Administer over 10 seconds Given 03/18/2018 9:22 AM BAND RIPSAW OPERATOR 0.4 mg rivaroxaban (XARELTO) tablet 20 mg 20 mg, Oral, Every evening, First dose on 03/18/18 at 0300, Until Discontinued Given 03/18/2018 3:40 AM BAND RIPSAW OPERATOR 20 mg sodium chloride 0.9% infusion at 100 mL/hr, Intravenous, Continuous, Starting on 03/18/18 at 0300, Until 03/18/18 at 1640 New Bag 03/18/2018 3:40 AM BAND RIPSAW OPERATOR 100 mL/hr documented in this encounter Active and Recently Administered Medications Times are shown in BAND RIPSAW OPERATOR. Scheduled Medication Order 03/16/2018 03/17/2018 03/18/2018 exemestane (AROMASIN) tablet 25 mg 25 mg, Oral, Daily, First dose on 03/18/18 at 0900, Until Discontinued, Give after a meal, , Patient's own medication identified by [facility] ED: JESUS AMATO, YordyD Identified #[id number], Date: 03/18/18 4:49 AM, , STORED IN PATIENT SPECIFIC BIN IN [employer], , * Remember to send medication home [...] 0300, Until 03/18/18 at 1640 0340 ([facility] ider: Sharan Wong RN) PRN Medication Order [...] as of this encounter Care Teams Assistant Production Manager Relationship Specialty Start Date End Date Gerardo Hoffman MD [address] [facility] [address] [place] [address] PCP - General FAMILY PRACTICE 08/20/17 Meena Bansal MD [address] [facility] [address] [place] [address] Daggett Agent Spa Desk CARDIOVASCULAR DISEASE 04/24/16 documented as of this encounter
--- OUTSIDE RECORDS SUMMARY | 2024-04-26 07:03 | XMS_ITS | Encounter Summary ---
Author Organization [facility] Address [address] [place] [address]. [place] [address] [place] [address] Care Team Providers Care Diet Tech Name Role Phone Meena Bansal MD Unavailable [phone] Justen Gale MD Primary Care Provider [phone] Reason for Referral * Imaging (Emergency) - Closed Specialty Diagnoses / Procedures Referred By Elyssa benavides Referred To Contact RADIOLOGY Procedures CT ABD+PEL W IV CON ONLY Sher Perry MD [address] [address] Phone: tel: fax: Referral ID Status Reason Start Date Expiration Date Visits Re quested Visits Authorized [id number] Closed 09/04/2018 10/06/2019 1 1 Reason for Visit * Reason Comments Abdominal Pain Encounter Details Date Type Department Care Team (Late st Contact Info) Description 09/04/2018 6:42 PM CDT - 09/05/2018 12:22 AM CDT Emergency [facility] [place] [address] Sher Perry MD [address] [address] Corby Toledo MD [address] [address] Abdominal Pain Discharge Disposition: Home [...] Sexual Orientation Straight 03/18/2018 3: 01 AM 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 * Acute Abdomen (Belly Pain) (French) documented in this encounter Medications at Time [...] HUMAIRA Ordaz - 09/04/2018 6:27 PM CDT [place], [place] EMERGENCY DEPARTMENT ENCOUNTER Medical Screening [...] * LIPASE (09/04/2018 8:29 PM CDT) Pathologist [facility] LIPASE 114 73 - 393 UNITS/L 09/04/2018 9:31 PM CDT [facility] 09/04/2018 8:29 PM CDT us Sher Perry MD LABORATORY Final Resul t [facility] [address] [place] [address], [place] [phone] * (ABNORMAL) COMPREHENSIVE METABOLIC PANEL (09/04/2018 8:29 PM CDT) GLUCOSE 171(H) 70 - 99 MG/DL 09/04/2018 9:31 PM [facility] BUN 14 7 - 18 MG/DL 09/04/2018 9:31 PM [facility] CREATININE S/P/B 0.94 0.55 - 1.02 MG/DL 09/04/2018 9:31 PM [facility] SODIUM S/P/B 140 136 - 145 MMOL/L 09/04/2018 9:31 PM [facility] POTASSIUM S/P/B 4.8 3.5 - 5.1 MMOL/L 09/04/2018 9:31 PM [facility] Comment:SLIGHT HEMOLYSIS, RE SULT MAY BE AFFECTED. CHLORIDE S/P/B 105 100 - 108 MMOL/L 09/04/2018 9:31 PM [facility] CO2 29.3 21 - 32 MMOL/L 09/04/2018 9:31 PM [facility] CALCIUM S/P/B 9.6 8.5 - 10.1 MG/DL 09/04/2018 9:31 PM [facility] BILIRUBIN TOTAL S/P/B 0.5 0.2 - 1.2 MG/DL 09/04/2018 9:31 PM [facility] TOTAL PROTEIN S/P/B 8.3(H) 6.4 - 8.2 G/DL 09/04/2018 9:31 PM [facility] ALBUMIN S/P/B 3.1(L) 3.4 - 5.0 G/DL 09/04/2018 9:31 PM [facility] AST 41(H) 15 - 37 U/L 09/04/2018 9:31 PM [facility] Comment:SLIGHT HEMOLYSIS, RE SULT MAY BE AFFECTED. ALT 29 14 - 55 U/L 09/04/2018 9:31 PM T [facility] ALKALINE PHOSPHATASE S/P/B 91 50 - 136 U/L 09/04/2018 9:31 PM CDT [facility] ANION GAP 10.5 8 - 20 MMOL/L 09/04/2018 9:31 PM CDT [facility] BUN CREATININE RATIO 14.8 6 - 26 09/04/2018 9:31 PM CDT [facility] A/G RATIO 0.6(L) 1.0 - 2.0 RATIO 09/04/2018 9:31 PM CDT [facility] EGFR NON-AFR. AMER. 65(L) >90 ML/MIN/1.7 3 M2 09/04/2018 9:31 PM CDT [facility] EGFR AFR. AMER. 75(L) >90 ML/MIN/1.7 3 M2 09/04/2018 9:31 PM CDT [facility] Comment: NOTE: eGFR is not calculated for patients <18 years of age. This is an estimated GFR (CKD EPI) and should not be used for calculating drug doses. 09/04/2018 8:29 PM CDT Sher Perry MD LABORATORY Final Resul t [facility] [address] [place] [address], * CULTURE URINE (09/04/2018 7:18 PM CDT) SPEC DESCRIPTION URINE CLEAN CATCH 09/04/2018 10:20 PM CDT [facility] SPECIAL REQUESTS NO SPECIAL REQUEST 09/04/2018 10:20 PM CDT [facility] CULTURE RESULT POLYMICROBIAL GROWTH CONSISTENT WITH NORMAL GENITAL YESENIA. ?? SUSCEPTIBILITIES NOT ROUTINELY PERFORMED. 09/07/2018 9:33 AM CDT [facility] URINE SPECIMEN OBTAINED BY CLEAN CATCH PROCEDURE / Unknown 09/04/2018 7:18 PM CDT 09/04/2018 10:18 PM CDT [facility]- MICROBIOLOGY - GENERAL OR DERABLES Final Result [facility] [address] [place] [address], * (ABNORMAL) URINALYSIS WI REFLEX TO CULTURE (09/04/2018 7:18 PM CDT) SPECIMEN TYPE URINE CLEAN CATCH 09/04/2018 7:18 PM CDT [facility] COLOR (U) YELLOW 09/04/2018 8:29 PM CDT [facility] TRANSPARENCY CLEAR 09/04/2018 8:29 PM CDT [facility] SPECIFIC GRAVITY (U) 1.019 1.001 - 1.030 09/04/2018 8:29 PM CDT [facility] U PH 5.0 5.0 - 9.0 09/04/2018 8:29 PM CDT [facility] LEUKOCYTES (U) TRACE(A) NEGATIVE 09/04/2018 8:29 PM CDT [facility] NITRITES NEGATIVE NEGATIVE 09/04/2018 8:29 PM CDT [facility] PROTEIN (U) NEGATIVE <30 MG/DL 09/04/2018 8:29 PM CDT [facility] URINE GLUCOSE NEGATIVE NEGATIVE MG/DL 09/04/2018 8:29 PM CDT [facility] KETONES MG/DL (U) NEGATIVE NEGATIVE MG/DL 09/04/2018 8:29 PM CDT [facility] UROBILINOGEN NEGATIVE NEGATIVE MG/DL 09/04/2018 8:29 PM CDT [facility] BILIRUBIN (U) NEGATIVE NEGATIVE MG/DL 09/04/2018 8:29 PM CDT [facility] BLOOD (U) MODERATE(A) NEGATIVE 09/04/2018 8:29 PM CDT [facility] CULTURE & SENSITIVITY INDICATED? SPECIMEN SETUP FOR CULTURE 09/04/2018 8:29 PM CDT [facility] SQUAMOUS EPITHELIALS RARE /LPF 09/04/2018 8:30 PM CDT [facility] MUCUS RARE /LPF 09/04/2018 8:30 PM CDT [facility] WBC/HPF 6(H) <6 /HPF 09/04/2018 8:30 PM CDT [facility] RBC/HPF 5 <6 /HPF 09/04/2018 8:30 PM CDT [facility] URINE SPECIMEN OBTAINED BY CLEAN CATCH PROCEDURE / Unknown 09/04/2018 7:18 PM CDT us [facility] UNITIZER-BC URINE ORDERABLES Final Re sult [facility] [address] [place] [address], [place] [phone] * (ABNORMAL) CBC W/DIFF AUTOMATED (09/04/2018 7:11 PM CDT) WBC 11.4(H) 4.5 - 11.0 x10'3/uL 09/04/2018 7:50 PM CDT [facility] RBC 4.51 4.20 - 5.40 x10'6/uL 09/04/2018 7:50 PM CDT [facility] HGB 12.7 12.0 - 16.0 G/DL 09/04/2018 7:50 PM CDT [facility] HCT 40.7 38.0 - 48.0 % 09/04/2018 7:50 PM CDT [facility] MCV 90.2 81.0 - 99.0 FL 09/04/2018 7:50 PM CDT [facility] MCH 28.2 27.0 - 31.0 PG 09/04/2018 7:50 PM CDT [facility] MCHC 31.2(L) 32.0 - 36.0 G/DL 09/04/2018 7:50 PM CDT [facility] RDW 14.0 11.5 - 14.5 % 09/04/2018 7:50 PM CDT [facility] PLT 356 130 - 400 x10'3/uL 09/04/2018 7:50 PM CDT [facility] MPV 10.2 9.3 - 12.2 FL 09/04/2018 7:50 PM CDT [facility] DIFFERENTIAL TYPE AUTOMATED DIFFERENTIAL 09/04/2018 7:50 PM CDT [facility] NEUTROPHILS % 67.0 % 09/04/2018 7:50 PM CDT [facility] LYMPHOCYTES % 23.3 % 09/04/2018 7:50 PM CDT [facility] MONOCYTES % 6.3 % 09/04/2018 7:50 PM CDT [facility] EOSINOPHILS 2.6 % 09/04/2018 7:50 PM CDT [facility] BASOPHILS 0.4 % 09/04/2018 7:50 PM CDT [facility] IMMATURE GRANS % 0.4 % 09/05/19 19 7:50 PM CDT [facility] ABS. NEUTROPHILS TOTAL 7.65 1.80 - 7.70 x10'3/uL 09/04/2018 7:50 PM CDT [facility] ABS. LYMPHOCYTES 2.66 1.00 - 4.80 x10'3/uL 09/04/2018 7:50 PM CDT [facility] ABS. MONOCYTES 0.72 0.24 - 0.86 x10'3/uL 09/04/2018 7:50 PM CDT [facility] ABS. EOSINOPHILS 0.30 0.04 - 0.36 x10'3/uL 09/04/2018 7:50 PM CDT [facility] ABS. BASOPHILS 0.04 0.01 - 0.08 x10'3/uL 09/04/2018 7:50 PM CDT [facility] ABS. IMMATURE GRANULOCYTES 0.05 0.00 - 0.49 x10'3/uL 09/04/2018 7:50 PM CDT [facility] 09/04/2018 7:11 PM CDT [facility] Final Res ult [facility] [address] [place] [address], documented in this encounter Visit Diagnoses Diagnosis [...] pos. 02/201808/31/2018 08/31/2018 07/02/19 21 2:54 AM EIGHT SECTION BLOWER documented as of this encounter Care Teams Diet Tech Relationship Specialty Start Date End Date Justen Gale MD [facility]. [id number] [place] [address] PCP - General FAMILY PRACTICE 08/20/17 Meena Bansal MD [facility]. [facility] [address] [place] [address] José Luis Cleaner Housekeeping CARDIOVASCULAR DISEASE 04/24/16 documented as of this encounter
--- OUTSIDE RECORDS SUMMARY | 2024-04-26 07:03 | XMS_ITS | Encounter Summary ---
Author Organization [facility] Address [address] [place] [address]. [place] [address] [place] [address] Care Team Providers Care Sink Cutter Name Role Phone Lavonne Ram MD Primary Care Provider [phone] Meena Bansal MD Unavailable [phone] Encounter Details Date Type Department Care Team (Late st Contact Info) Description 11/02/2016 Abstract [facility] [place] [address] Kirit Sevilla MD 3 [facility] [address] [place] [address] Social History Tobacco Use Types Packs/Day Years Used Date Smoking Tobacco: Never Assessed Comments Unknown Sex and Gender Information Value Date Recorded Sex Assigned at Female 09/06/2020 12:50 AM CDT Legal Sex Female 10:47 AM CDT Gender Identity Female 09/06/2020 12:50 AM CDT Sexual Orientation Straight 03/18/2018 3: 01 AM [employer]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 documented as of this encounter Plan of [...] - 192 U/L 11/02/2016 11:35 AM CDT [facility] SERUM OR PLASMA SPECIMEN / Unknown 11/02/2016 10:55 AM CDT 11/02/2016 11:11 AM CDT us Generic Conversion Md DUR[facility]N LABORATORY Final R esult Performing Organization Address City/[facility]/ZIP Co de Phone Number [facility] [address] [place] [address], [place] [phone] * TROPONIN, QUANT (11/02/2016 10:55 AM CDT) TROPONIN I <0.30 <0.30 ng/mL 11/02/2016 11:34 AM CDT [facility] SERUM OR PLASMA SPECIMEN / Unknown 11/02/2016 10:55 AM CDT 11/02/2016 11:11 AM CDT us Generic Conversion Md [facility] Final R esult [facility] [address] [place] [address], * CKMB(MB FRACTION ONLY) (11/02/2016 10:55 AM CDT) CK-MB 2.31 <4.30 ng/mL 11/02/2016 11:34 AM CDT [facility] SERUM OR PLASMA SPECIMEN / Unknown 11/02/2016 10:55 AM CDT 11/02/2016 11:11 AM CDT Generic Conversion Md [facility] Final R esvincent Performing Organization Address [facility]/ZIP Co de Phone Number [facility] [address] [place] [address], * CK (CPK) (11/02/2016 8:30 AM CDT) CPK 68 26 - 192 U/L 11/02/2016 9:16 AM CDT [facility] SERUM OR PLASMA SPECIMEN / Unknown 11/02/2016 8:30 AM CDT 11/02/2016 8:51 AM CDT Generic Conversion Md [facility]OR[facility] Final R jaja Performing Organization Address [facility]/ZIP Co de Phone Number [facility] [address] [place] [address], [place] [phone] * TROPONIN, QUANT (11/02/2016 8:30 AM CDT) TROPONIN I <0.30 <0.30 ng/mL 11/02/2016 9:14 AM CDT [facility] SERUM OR PLASMA SPECIMEN / Unknown 11/02/2016 8:30 AM CDT 11/02/2016 8:51 AM CDT Generic Conversion Md [facility]OR[facility] Final R esvincent Performing Organization Address [facility]/ZIP Co de Phone Number [facility] [address] [place] [address], * CKMB(MB FRACTION ONLY) (11/02/2016 8:30 AM CDT) CK-MB 2.51 <4.30 ng/mL 11/02/2016 9:14 AM CDT [facility] SERUM OR PLASMA SPECIMEN / Unknown 11/02/2016 8:30 AM CDT 11/02/2016 8:51 AM CDT us Generic Conversion Md [facility] Final R esult [facility] [address] [place] [id number], * (ABNORMAL) POCT glucose (11/02/2016 7:21 AM CDT) GLUCOSE POC 184(H) 70 - 99 mg/dL 11/02/2016 8:13 AM CDT [facility] ORDERS INTERFACE 11/02/2016 7:21 AM CDT 11/02/2016 8:13 AM CDT Generic Conversion Md DURÁN POCT ORDERABLES - DEVIC E Final Result [facility] ORDERS INTERFACE US * (ABNORMAL) LIPID PANEL (11/02/2016 6:00 AM CDT) CHOLESTEROL 165 <200 MG/DL 11/02/2016 10:12 AM CDT [facility] Comment: NOTE: Acetaminophen, N Acetyl p benzoquinone imine (NAPQI), N acetylcysteine (NAC), Metamizole, 4 Aminoantipyrine (4 AAP) and 4 Methylamino antipyrine (4 MAP) at high concentrations can cause falsely low results on Lactate, Uric Acid, Cholesterol, Triglyceride, HDL, and Direct LDL. TRIGLYCERIDES 111 <150 MG/DL 11/02/2016 10:12 AM CDT [facility] HDL 41(L) >59 MG/DL 11/02/2016 10:12 AM CDT [facility] LDL (CALCULATED) 102(H) <100 MG/DL 11/02/2016 [facility] HDL CHOLESTEROL 124 <130 MG/DL 11/02/2016 10:12 AM [facility] Comment: NOTE: WHEN THE TRIGLYCERIDES ARE >200 mg/dL, NON HDL C IS A SECONDARY TARGET OF THERAPY, WITH A GOAL 30 mg/dL HIGHER THAN THE IDENTIFIED LDL C GOAL. CHOL/HDL RATIO 4.0 0.0 - 4.5 11/02/2016 10:12 AM [facility] VLDL CALCULATION 22 5 - 55 MG/DL 11/02/2016 10:12 AM [facility] LIPID INTERPRETATION 11/02/2016 10:12 AM [facility] Comment: [facility] REPORT RECOMMENDATIONS: [...] LABORATORY Final R esvincent Performing Organization Address [facility] de Phone Number [facility] [address] [place] [address], * (ABNORMAL) HEMOGLOBIN, GLYCOSYLATED (11/02/2016 6:00 AM CDT) HGB A1C 8.2(H) 4.8 - 5.6 % 11/02/2016 10:13 AM CDT [facility] Comment: ADA GUIDELINES 2010 5.7 TO 6.4% INCREASED RISK OF DIABETES > OR = 6.5% CONSISTENT WITH DIABETES ESTIMATED AVG GLUCOSE 189 mg/dL 11/02/2016 10:13 AM CDT [facility] 11/02/2016 6:00 AM CDT 11/02/2016 9:58 AM CDT Generic Conversion Md [facility] LABORAT[facility] Final R esvincent Performing Organization Address [facility] de Phone Number [facility] [address] [place] [address], * MRSA SCREENING (11/02/2016 5:51 AM CDT) SPEC DESCRIPTION NASAL 11/02/2016 5:51 AM CDT [facility] SPECIAL REQUESTS NO SPECIAL REQUEST 11/02/2016 5:51 AM CDT [facility] CULTURE RESULT METHICILLIN RESISTANT STAPH AUREUS PRESENT FOLLOW ISOLATION PROTOCOL. 11/03/2016 7:40 AM CDT [facility] CULTURE RESULT POSITIVE RESULTS NEED PHONED TO PHYSICIAN, BY NURSING STAFF, MALDONADO, FOR POSSIBLE DECOLONIZATION PROTOCOL ORDERS. 11/03/2016 7:40 AM CDT [facility] SPECIMEN FROM INTERNAL NOSE / Unknown 11/02/2016 5:51 AM CDT 11/02/2016 5:53 AM CDT Generic Conversion Md DURÁN MICROBIOLOGY - GENERAL ORDERABLES Final Result Performing Organization Address [facility]/ZIP Co de Phone Number [facility] [address] [place] [address], * PROCALCITONIN (PCT) (11/02/2016 12:46 AM CDT) Procalcitonin <0.05 <0.5 NG/ML 11/02/2016 2:58 AM CDT [facility] SERUM OR PLASMA SPECIMEN / Unknown 11/02/2016 12:46 AM CDT 11/02/2016 12:52 AM CDT Generic Ashok Durán MD LABORATORY Final R esult Performing Organization Address [facility]/ZIP Co de Phone Number [facility] [address] [place] [address], * CK (CPK) (11/02/2016 12:46 AM CDT) CPK 70 26 - 192 U/L 11/02/2016 1:13 AM CDT [facility] SERUM OR PLASMA SPECIMEN / Unknown 11/02/2016 12:46 AM CDT 11/02/2016 12:52 AM CDT us Generic Conversion Md [facility]OR[facility] Final R jaja Performing Organization Address [facility]/ZIP Co de Phone Number [facility] [address] [place] [address], * BNP (11/02/2016 12:46 AM CDT) B TYPE NATRIURETIC PEPTIDE <5.0 <100.0 pg/mL 11/02/2016 1:16 AM CDT [facility] WHOLE BLOOD SPECIMEN / Unknown 11/02/2016 12:46 AM CDT 11/02/2016 12:52 AM CDT Generic Conversion Md [facility] LABORAT[facility] Final R jaja Performing Organization Address [facility]/ZIP Co de Phone Number [facility] [address] [place] [address], * TROPONIN, QUANT (11/02/2016 12:46 AM CDT) TROPONIN I <0.30 <0.30 ng/mL 11/02/2016 1:12 AM CDT [facility] SERUM OR PLASMA SPECIMEN / Unknown 11/02/2016 12:46 AM CDT 11/02/2016 12:53 AM CDT us Generic Conversion Md [facility] Deborah R jaja Performing Organization Address [facility]/ZIP Co de Phone Number [facility] [address] [place] [address], [place] [phone] * CKMB(MB FRACTION ONLY) (11/02/2016 12:46 AM CDT) CK-MB 2.54 <4.30 ng/mL 11/02/2016 1:12 AM CDT [facility] SERUM OR PLASMA SPECIMEN / Unknown 11/02/2016 12:46 AM CDT 11/02/2016 12:53 AM CDT Generic Conversion Md [facility] Final R jaja Performing Organization Address [facility]/ZIP Co de Phone Number [facility] [address] [place] [address], * TROPONIN, QUANT (11/01/2016 11:07 PM CDT) TROPONIN I <0.30 <0.30 ng/mL 11/01/2016 11:32 PM CDT [facility] SERUM OR PLASMA SPECIMEN / Unknown 11/01/2016 11:07 PM CDT 11/01/2016 11:13 PM CDT us Generic Conversion Md [facility] LABORATORY Final R esvincent Performing Organization Address [facility]/ZIP Co de Phone Number [facility] [address] [place] [address], * CKMB(MB FRACTION ONLY) (11/01/2016 11:07 PM CDT) CK-MB 3.02 <4.30 ng/mL 11/01/2016 11:32 PM CDT [facility] SERUM OR PLASMA SPECIMEN / Unknown 11/01/2016 11:07 PM CDT 11/01/2016 11:13 PM CDT us Generic Conversion Md [facility] LABORAT[facility] Final R esvincent Performing Organization Address [facility]/ZIP Co de Phone Number [facility] [address] [place] [address], * PARTIAL THROMBOPLASTIN TIME,PTT (11/01/2016 11:07 PM CDT) PTT 32.5 25.5 - 37.6 SEC 11/01/2016 11:38 PM CDT [facility] PLASMA SPECIMEN / Unknown 11/01/2016 11:07 PM CDT 11/01/2016 11:12 PM CDT Generic Conversion Md [facility] LABORATORY Final R jaja Performing Organization Address [facility] Co de Phone Number [facility] [address] [place] [address], [place] [phone] * (ABNORMAL) PROTIME/INR, VENOUS (11/01/2016 11:07 PM CDT) PROTIME 12.5(H) 9.6 - 12.2 SEC 11/01/2016 11:38 PM CDT [facility] INR 1.1 11/01/2016 11:38 PM CDT [facility] Comment: Recommended INR Therapeutic Goals: ??2.0-3.0 Routine Therapy ??2.5-3.5 Mechanical Prosthetic Valves (High Risk) ??3.0-4.0 Acute IA (to prevent Systemic Embolism) The INR is used only for patients on stable oral anticoagulant therapy. It makes no significant contribution to the diagnosis or treatment of patients whose Protime is prolonged for other reasons. 11/01/2016 11:0 7 PM CDT 11/01/2016 11:12 PM CDT us Generic Conversion Md [facility] LABOR[facility] Deborah wilkinson Performing Organization Address [facility]/ZIP Co de Phone Number [facility] [address] [place] [address], [place] [phone] * D-DIMER, QUANTITATIVE (11/01/2016 11:07 PM CDT) D-DIMER <150 0 - 230 D DU ng/mL 11/01/2016 11:45 PM CDT [facility] Comment: TESTING PERFORMED ON [employer] TOP 300 ANALYZER. NOTE: RESULTS OF THIS [...] Generic Conversion Md [facility] Performing Organization Address [facility]/ZIP Co de Phone Number [facility] [address] [place] [address], [place] [phone] * CK (CPK) (11/01/2016 11:07 PM CDT) CPK 84 26 - 192 U/L 11/01/2016 11:34 PM CDT [facility] SERUM OR PLASMA SPECIMEN / Unknown 11/01/2016 11:07 PM CDT 11/01/2016 11:12 PM CDT us Generic Conversion Md [facility]N LABORATORY Final R [facility] Performing Organization Address [facility] Co de Phone Number [facility] [address] [place] [address], [place] [phone] * (ABNORMAL) COMPREHENSIVE METABOLIC PANEL (11/01/2016 11:07 PM CDT) GLUCOSE 228(H) 70 - 99 mg/dL 11/01/2016 11:34 PM CDT [facility] BUN 18 8 - 23 mg/dL 11/01/2016 11:34 PM CDT [facility] CREATININE S/P/B 0.64 0.60 - 1.10 mg/dL 11/01/2016 11:34 PM CDT [facility] SODIUM S/P/B 136 136 - 145 mmol/L 11/01/2016 11:34 PM CDT [facility] POTASSIUM S/P/B 4.3 3.5 - 5.1 mmol/L 11/01/2016 11:34 PM T [facility] CHLORIDE S/P/B 96(L) 98 - 107 mmol/L 11/01/2016 11:34 PM CDT [facility] CO2 27 22 - 29 mmol/L 11/01/2016 11:34 PM CDT [facility] BILIRUBIN TOTAL S/P/B 0.4 0.2 - 1.2 mg/dL 11/01/2016 11:34 PM T [facility] CALCIUM S/P/B 9.8 8.6 - 10.2 mg/dL 11/01/2016 11:34 PM T [facility] ALKALINE PHOSPHATASE S/P/B 66 35 - 104 U/L 11/01/2016 11:34 PM T [facility] AST 19 0 - 32 U/L 11/01/2016 11:34 PM T [facility] TOTAL PROTEIN S/P/B 8.4(H) 6.4 - 8.3 g/dL 11/01/2016 11:34 PM T [facility] ALBUMIN S/P/B 3.9 3.5 - 5.2 g/dL 11/01/2016 11:34 PM CDT [facility] ALT 22 0 - 33 U/L 11/01/2016 11:34 PM T [facility] GLOBULIN 4.5(H) 2.3 - 3.6 g/dL 11/01/2016 11:34 PM T [facility] A/G RATIO 0.9(L) 1.0 - 2.0 11/01/2016 11:34 PM T [facility] ANION GAP 17 8 - 20 11/01/2016 11:34 PM CDT [facility] EGFR NON-AFR. AMER. >60 >60 mL/min/1.7 3m'2 11/01/2016 11:34 PM CDT [facility] EGFR AFR. AMER. >60 >60 mL/min/1.7 3m'2 11/01/2016 11:34 PM CDT [facility] Comment: NOTE: eGFR is not calculated for patients <18 years of age. This is an estimated GFR (CKD EPI) and should not be used for calculating drug doses. 11/01/2016 11:0 7 PM CDT 11/01/2016 11:12 PM CDT us Generic Conversion Md D[facility]N LABORAT[facility] Final R esult [facility] [address] [place] [address], * (ABNORMAL) CBC W/DIFF AUTOMATED (11/01/2016 11:07 PM CDT) WBC 10.2 4.8 - 10.8 x10'3/uL 11/01/2016 11:15 PM CDT [facility] RBC 4.55 4.20 - 5.40 x10'6/uL 11/01/2016 11:15 PM CDT [facility] HGB 13.0 12.0 - 16.0 G/DL 11/01/2016 11:15 PM CDT [facility] HCT 40.8 38.0 - 48.0 % 11/01/2016 11:15 PM CDT [facility] MCV 89.7 81.0 - 99.0 FL 11/01/2016 11:15 PM CDT [facility] MCH 28.6 27.0 - 31.0 PG 11/01/2016 11:15 PM CDT [facility] MCHC 31.9(L) 32.0 - 36.0 G/DL 11/01/2016 11:15 PM CDT [facility] RDW 14.1 11.5 - 14.5 % 11/01/2016 11:15 PM CDT [facility] PLT 327 130 - 400 x10'3/uL 11/01/2016 11:15 PM CDT [facility] MPV 9.8 9.3 - 12.2 FL 11/01/2016 11:15 PM CDT [facility] IMMATURE GRANS % 0.5 0.0 - 1.0 % 11/01/2016 11:15 PM CDT [facility] NEUTROPHILS % 59.9 43.0 - 65.0 % 11/01/2016 11:15 PM CDT [facility] LYMPHOCYTES % 27.4 20.0 - 46.0 % 11/01/2016 11:15 PM CDT [facility] MONOCYTES % 8.5 5.0 - 12.0 % 11/01/2016 11:15 PM CDT [facility] EOSINOPHILS 3.2(H) 1.0 - 3.0 % 11/01/2016 11:15 PM CDT [facility] BASOPHILS 0.5 0.0 - 1.0 % 11/01/2016 11:15 PM CDT [facility] WHOLE BLOOD SPECIMEN / Unknown 11/01/2016 11:07 PM CDT 11/01/2016 11:12 PM CDT us Generic Conversion Md [facility]N LAB[facility] Final R esult [facility] [address] [place] [address], [place] [phone] documented in this encounter Visit Diagnoses Diagnosis Other chest pain documented in this encounter Care Teams Sink Cutter Relationship Specialty Start Date End Date Lavonne Ram MD [address] [place] [address] PCP - General FAMILY PRACTICE 04/24/16 08/19/17 Meena Bansal MD [address] [address] [place] Large Animal Husbandry Technician CARDIOVASCULAR DISEASE 04/24/16 documented as of this encounter
--- OUTSIDE RECORDS SUMMARY | 2024-04-26 07:03 | XMS_ITS | Encounter Summary ---
Author Organization [facility] Address [address] [place] [address]. [place] [address] [place] [address] Care Team Providers Care Motor Vehicle Representative Name Role Phone Lavonne Ram MD Primary Care Provider [phone] Meena Bansal MD Unavailable [phone] Reason for Referral * (Emergency) - Closed Specialty Diagnoses / Procedures Referred By Contac t Referred To Contact Procedures CT ABD+PEL W CON Ishmael Lane MD Referral ID Status Reason Start Date Expiration Date Visits Re quested Visits Authorized [id number] Closed 03/23/2017 04/22/2018 1 1 STANT ASSOCIATE PROFESSOR Reason for Visit * Reason Comments Kidney Problem pt c/o blood in urin e for the past few days. pt c/o bilateral flank pain and has hx of uti and kidney stones. Encounter Details Date Type Department Care Team (Late st Contact Info) Description 03/23/2017 12:55 AM ASSISTANT ASSOCIATE PROFESSOR - 03/23/2017 6:19 AM ASSISTANT ASSOCIATE PROFESSOR Emergency [facility] [place] [address] MD Kidney Problem (pt c/o [...] Sexual Orientation Straight 03/18/2018 3: 01 AM ASSISTANT ASSOCIATE PROFESSOR documented as of this encounter Last Filed Vital Signs Vital Sign Reading Time Taken Comments Blood Pressure 111/77 03/23/2017 2:52 AM ASSISTANT ASSOCIATE PROFESSOR Pulse 79 03/23/2017 2:52 AM ASSISTANT ASSOCIATE PROFESSOR Temperature 36.9 ??C (98.4 ??F) 03/22/2017 1 1:48 PM ASSISTANT ASSOCIATE PROFESSOR Respiratory Rate 18 03/23/2017 2:52 AM ASSISTANT ASSOCIATE PROFESSOR Oxygen Saturation 99% 03/22/2017 11: 48 PM ASSISTANT ASSOCIATE PROFESSOR Inhaled Oxygen Concentration - - Weight 131.1 kg (289 lb 0.4 oz) 017 11:48 PM ASSISTANT ASSOCIATE PROFESSOR Height 154.9 cm (5' 1 ) 03/22/2017 11:4 8 PM ASSISTANT ASSOCIATE PROFESSOR Body Mass Index 54.61 03/22/2017 11:48 PM ASSISTANT ASSOCIATE PROFESSOR documented in this encounter Discharge Instructions * Discharge Instructions* Ishmael Lane MD - 03/23/2017 4:52 AM ASSISTANT ASSOCIATE PROFESSOR Images from the original note were not [...] or side. Where can I learn more? [employer] http://www.urologyhealth.org/urologic-conditions/kidney-stones National Kidney and [...] for you. Copyright Copyright ?? 2017 [employer] and its affiliates and/or licensors. All rights reserved. STANT ASSOCIATE PROFESSOR documented in this encounter Medications at [...] discharge instructions with both patient and spouse. 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 Tonight when I went pee it was like pure blood. Pt states pain also has moved to the front of her stomach. Pt reports bright red blood. Denies N/V/D. 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: pt : [phone] Requested By: ISHMAEL LANE Order Number: [id number] Reading MD: Measurements Intervals [place] Rate: 82 P: 4 MI: 121 QRS: -3 QRSD: 84 T: 56 QT: 373 QTc: 437 Interpretive Statements SINUS RHYTHM Compared to ECG 11/01/2016 22:55:19 Ventricular premature complex(es) no longer present LABORATORY STUDIES: Results for orders placed or performed during the hospital encounter of 03/23/17 URINALYSIS WI REFLEX TO CULTURE Result Value Ref Range Specimen Type URINE CLEAN CATCH COLOR YELLOW TRANSPARENCY CLOUDY Specific [place] (U) 1.019 1.001 - 1.030 U PH [...] Clinical Impression Kidney stone (Primary) Disposition: Discharge Ihsmael Lane MD 03/23/17 0452 STANT ASSOCIATE PROFESSOR * Heaven Romero RN - 03/23/2017 1:00 AM CST PT REPORTING INCREASE IN BLOOD OUTPUT. PT STATING SHE IS NOW UNSURE IF IT IS IN HER URINE OR IF IT IS A VAGINAL BLEED. STANT ASSOCIATE PROFESSOR documented in this encounter Plan of Treatment Pending Results Name Type Priority Associated Diagnoses Date /Time ECG 12 lead EKG-NonRad STAT 03/23/2017 2: 32 AM ASSISTANT ASSOCIATE PROFESSOR documented as of this encounter Procedures Procedure Name Priority Date/Time Associated Diagnosis Comments CT ABD+PEL W CON STAT 03/23/2017 3:40 AM ASSISTANT ASSOCIATE PROFESSOR TROPONIN, QUANT STAT 03/23/2017 2:55 AM ASSISTANT ASSOCIATE PROFESSOR AMYLASE STAT 03/23/2017 2:55 AM ASSISTANT ASSOCIATE PROFESSOR LIPASE STAT 03/23/2017 2:55 AM ASSISTANT ASSOCIATE PROFESSOR ECG 12-LEAD STAT 03/23/2017 2:32 AM ASSISTANT ASSOCIATE PROFESSOR Procedure Note - 03/23/2017 2:32 AM CSTThis note is in progress. 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: pt : [phone] Requested By: ISHMAEL LANE Order Number: [id number] Reading MD: Measurements Intervals [place] Rate: 82 P: 4 MI: 121 QRS: -3 QRSD: 84 T: 56 QT: 373 QTc: 437 Interpretive Statements SINUS RHYTHM Compared to ECG 11/01/2016 22:55:19 Ventricular premature complex(es) no longer present URINALYSIS WI REFLEX TO CULTURE STAT 03/23/2017 1:18 AM ASSISTANT ASSOCIATE PROFESSOR PARTIAL THROMBOPLASTIN TIME,PTT STAT 03/23/2017 1:18 AM ASSISTANT ASSOCIATE PROFESSOR PROTHROMBIN TIME, VENOUS STAT 03/23/2017 1:18 AM ASSISTANT ASSOCIATE PROFESSOR COMPREHENSIVE METABOLIC PANEL STAT 03/23/2017 1:18 AM ASSISTANT ASSOCIATE PROFESSOR CBC W/DIFF AUTOMATED STAT 03/23/2017 1:18 AM ASSISTANT ASSOCIATE PROFESSOR CK (CPK) STAT 03/23/2017 1:18 AM ASSISTANT ASSOCIATE PROFESSOR documented in this encounter Results * CT ABD+PEL W CON (03/23/2017 3:40 AM ASSISTANT ASSOCIATE PROFESSOR) Anatomical Region Laterality Modality Abdomen Computed Tomogra phy 03/23/2017 7:00 AM ASSISTANT ASSOCIATE PROFESSOR Impressions 03/23/2017 7:03 AM ASSISTANT ASSOCIATE PROFESSOR ===== IMPRESSION: ===== 1. ??No acute abdominal or pelvic abnormalities. 2. ??No hydronephrosis or obstructive uropathy. Multiple nonobstructing bilateral renal pelvic calcifications. 3. ??Postsurgical changes of anterior hernia mesh repair and cholecystectomy 4. ??Symmetric sacroiliitis similar to prior exam 5. ??Diverticular disease with no evidence of diverticulitis Narrative 03/23/2017 7:03 AM ASSISTANT ASSOCIATE PROFESSOR EXAMINATION: CT Abdomen and Pelvis with contrast [...] Resu lt * LIPASE (03/23/2017 2:55 AM ASSISTANT ASSOCIATE PROFESSOR) LIPASE 192 73 - 393 UNITS/L 03/23/2017 3:27 AM ASSISTANT ASSOCIATE PROFESSOR [facility] 03/23/2017 2:55 AM ASSISTANT ASSOCIATE PROFESSOR us Ishmael Lane MD LABORATORY Final Resu lt [facility] [address] [place] [address], * AMYLASE (03/23/2017 2:55 AM ASSISTANT ASSOCIATE PROFESSOR) AMYLASE S/P/B 47 25 - 115 UNITS/L 03/23/2017 3:27 AM ASSISTANT ASSOCIATE PROFESSOR [facility] 03/23/2017 2:55 AM ASSISTANT ASSOCIATE PROFESSOR Ishmael Lane MD LABORATORY Final Resu lt Performing Organization Address City/[facility]/ZIP Co de Phone Number [facility] [address] [place] [address], * TROPONIN, QUANT (03/23/2017 2:55 AM ASSISTANT ASSOCIATE PROFESSOR) TROPONIN I <0.015 <0.045 ng/mL. 03/23/2017 3:27 AM ASSISTANT ASSOCIATE PROFESSOR [facility] Comment: HIGH DOSES OF BIOTIN MAY INTERFERE WITH THIS TEST RESULT. CORRELATION TO CLINICAL HISTORY AND PRESENTATION RECOMMENDED. 03/23/2017 2:55 AM ASSISTANT ASSOCIATE PROFESSOR Ishmael Lane MD LABORATORY Final Resu lt Performing Organization Address City/[facility]/ZIP Co de Phone Number [facility] [address] [place] [address], * (ABNORMAL) PARTIAL THROMBOPLASTIN TIME,PTT (03/23/2017 1:18 AM ASSISTANT ASSOCIATE PROFESSOR) PTT 38.4(H) 25.5 - 37.6 SEC 03/23/2017 2:07 AM ASSISTANT ASSOCIATE PROFESSOR [facility] 03/23/2017 1:18 AM ASSISTANT ASSOCIATE PROFESSOR Melvin Ray MD LABORATORY Final Resu lt Performing Organization Address City/[facility]/ZIP Co de Phone Number [facility] [address] [place] [address], [place] [phone] * CK (CPK) (03/23/2017 1:18 AM ASSISTANT ASSOCIATE PROFESSOR) CPK 108 21 - 215 U/L 03/23/2017 2:16 AM ASSISTANT ASSOCIATE PROFESSOR [facility] 03/23/2017 1:18 AM ASSISTANT ASSOCIATE PROFESSOR Melvin Ray MD LABORATORY Final Resu lt Performing Organization Address [facility] Co de Phone Number [facility] [address] [place] [address], [place] [phone] * (ABNORMAL) PROTIME/INR, VENOUS (03/23/2017 1:18 AM ASSISTANT ASSOCIATE PROFESSOR) PROTIME 15.7(H) 9.6 - 12.2 SEC 03/23/2017 2:07 AM ASSISTANT ASSOCIATE PROFESSOR [facility] INR 1.4 03/23/2017 2:07 AM ASSISTANT ASSOCIATE PROFESSOR [facility] Comment: Recommended INR Therapeutic Goals: ??2.0-3.0 Routine Therapy ??2.5-3.5 Mechanical Prosthetic Valves (High Risk) ??3.0-4.0 Acute WI (to prevent Systemic Embolism) The INR is used only for patients on stable oral anticoagulant therapy. It makes no significant contribution to the diagnosis or treatment of patients whose Protime is prolonged for other reasons. 03/23/2017 1:18 AM ASSISTANT ASSOCIATE PROFESSOR Melvin Ray MD LABORATORY Final Resu lt Performing Organization Address City/[facility]/ZIP Co de Phone Number [facility] [address] [place] [address], [place] [phone] * (ABNORMAL) COMPREHENSIVE METABOLIC PANEL (03/23/2017 1:18 AM [facility]) [facility] GLUCOSE 178(H) 70 - 99 MG/DL 03/23/2017 2:16 AM [facility] BUN 17 7 - 18 MG/DL 03/23/2017 2:16 AM [facility] CREATININE S/P/B 0.85 0.55 - 1.02 MG/DL 03/23/2017 2:16 AM [facility] SODIUM S/P/B 137 136 - 145 MMOL/L 03/23/2017 2:16 AM [facility] POTASSIUM S/P/B 4.3 3.5 - 5.1 MMOL/L 03/23/2017 2:16 AM [facility] CHLORIDE S/P/B 104 100 - 108 MMOL/L 03/23/2017 2:16 AM [facility] CO2 28.3 21 - 32 MMOL/L 03/23/2017 2:16 AM [facility] CALCIUM S/P/B 9.9 8.5 - 10.1 MG/DL 03/23/2017 2:16 AM [facility] BILIRUBIN TOTAL S/P/B 0.4 0.2 - 1.2 MG/DL 03/23/2017 2:16 AM [facility] TOTAL PROTEIN S/P/B 9.1(H) 6.4 - 8.2 G/DL 03/23/2017 2:16 AM [facility] ALBUMIN S/P/B 3.5 3.4 - 5.0 G/DL 03/23/2017 2:16 AM [facility] AST 16 15 - 37 U/L 03/23/2017 2:16 AM [facility] ALT 23 14 - 55 U/L 03/23/2017 2:16 AM [facility] ALKALINE PHOSPHATASE S/P/B 76 50 - 136 U/L 03/23/2017 2:16 AM [facility] ANION GAP 9.0 8 - 20 MMOL/L 03/23/2017 2:16 AM [facility] BUN CREATININE RATIO 20.0 6 - 26 03/23/2017 2:16 AM [facility] A/G RATIO 0.6(L) 1.0 - 2.0 RATIO 03/23/2017 2:16 AM [facility] EGFR NON-AFR. AMER. >60 >60 ML/MIN/1.7 3 M2 03/23/2017 2:16 AM [facility] EGFR AFR. AMER. >60 >60 ML/MIN/1.7 3 M2 03/23/2017 2:16 AM [facility] Comment: NOTE: eGFR is not calculated for patients <18 years of age. This is an estimated GFR (CKD EPI) and should not be used for calculating drug doses. 03/23/2017 1:18 AM ASSISTANT ASSOCIATE PROFESSOR us Melvin Ray MD LABORATORY Final Resu lt [facility] [address] [place] [address], * (ABNORMAL) CBC W/DIFF AUTOMATED (03/23/2017 1:18 AM ASSISTANT ASSOCIATE PROFESSOR) WBC 10.5 4.8 - 10.8 x10'3/uL 03/23/2017 1:52 AM [facility] RBC 4.66 4.20 - 5.40 x10'6/uL 03/23/2017 1:52 AM [facility] HGB 13.3 12.0 - 16.0 G/DL 03/23/2017 1:52 AM [facility] HCT 42.1 38.0 - 48.0 % 03/23/2017 1:52 AM [facility] MCV 90.3 81.0 - 99.0 FL 03/23/2017 1:52 AM [facility] MCH 28.5 27.0 - 31.0 PG 03/23/2017 1:52 AM [facility] MCHC 31.6(L) 32.0 - 36.0 G/DL 03/23/2017 1:52 AM [facility] RDW 14.6(H) 11.5 - 14.5 % 03/23/2017 1:52 AM [facility] PLT 345 130 - 400 x10'3/uL 03/23/2017 1:52 AM [facility] MPV 9.8 9.3 - 12.2 FL 03/23/2017 1:52 AM [facility] NEUTROPHILS % 65.6(H) 43.0 - 65.0 % 03/23/2017 1:52 AM [facility] LYMPHOCYTES % 22.5 20.0 - 46.0 % 03/23/2017 1:52 AM [facility] MONOCYTES % 7.7 5.0 - 12.0 % 03/23/2017 1:52 AM [facility] EOSINOPHILS 3.5(H) 1.0 - 3.0 % 03/23/2017 1:52 AM [facility] BASOPHILS 0.4 0.0 - 1.0 % 03/23/2017 1:52 AM [facility] IMMATURE GRANS % 0.3 0.0 - 1.0 % 03/23/2017 1:52 AM [facility] 03/23/2017 1:18 AM ASSISTANT ASSOCIATE PROFESSOR us Melvin Ray MD LABORATORY Final Resu lt [facility] [address] [place] [address], [place] [phone] * (ABNORMAL) URINALYSIS WI REFLEX TO CULTURE (03/23/2017 1:18 AM ASSISTANT ASSOCIATE PROFESSOR) SPECIMEN TYPE URINE CLEAN CATCH 03/23/2017 1:05 AM [facility] COLOR (U) YELLOW 03/23/2017 2:03 AM [facility] TRANSPARENCY CLOUDY 03/23/2017 2:03 AM [facility] SPECIFIC GRAVITY (U) 1.019 1.001 - 1.030 03/23/2017 2:03 AM [facility] U PH 6.0 5.0 - 9.0 03/23/2017 2:03 AM [facility] LEUKOCYTES (U) NEGATIVE NEGATIVE 03/23/2017 2:03 AM [facility] NITRITES NEGATIVE NEGATIVE 03/23/2017 2:03 AM [facility] PROTEIN (U) 30(H) <30 MG/DL 03/23/2017 2:03 AM [facility] URINE GLUCOSE NEGATIVE NEGATIVE MG/DL 03/23/2017 2:03 AM [facility] KETONES MG/DL (U) NEGATIVE NEGATIVE MG/DL 03/23/2017 2:03 AM [facility] UROBILINOGEN NEGATIVE NEGATIVE MG/DL 03/23/2017 2:03 AM [facility] BILIRUBIN (U) NEGATIVE NEGATIVE MG/DL 03/23/2017 2:03 AM [facility] BLOOD (U) LARGE(A) NEGATIVE 03/23/2017 2:03 AM ASSISTANT ASSOCIATE PROFESSOR [facility] CULTURE & SENSITIVITY INDICATED? CULTURE IS NOT INDICATED 03/23/2017 2:03 AM ASSISTANT ASSOCIATE PROFESSOR [facility] WBC/HPF <1 <6 /HPF 03/23/2017 2:03 AM ASSISTANT ASSOCIATE PROFESSOR [facility] RBC/HPF >100(H) <6 /HPF 03/23/2017 2:03 AM ASSISTANT ASSOCIATE PROFESSOR [facility] URINE SPECIMEN OBTAINED BY CLEAN CATCH PROCEDURE / Unknown 03/23/2017 1:18 AM ASSISTANT ASSOCIATE PROFESSOR us Melvin Ray MD URINE ORDERABLES Final Res ult [facility] [address] [place] [address], [place] [phone] documented in this encounter Visit Diagnoses Diagnosis Kidney stone- Primary Calculus of kidney documented in this encounter Administered Medications Inactive Administered Medications - up to 3 most recent administrations Medication Order MAR Action Action Date Dose Rate Site HYDROmorphone (DILAUDID) injection 1 mg 1 mg, Intravenous, Once, 1 dose, On Valeri 03/23/17 at 0245 Given 03/23/2017 2:38 AM ASSISTANT ASSOCIATE PROFESSOR 1 mg HYDROmorphone (DILAUDID) injection 1 mg 1 mg, Intravenous, Once, 1 dose, On [place]eri 03/23/17 at 0445 Given 03/23/2017 4:28 AM ASSISTANT ASSOCIATE PROFESSOR 1 mg iopamidol (ISOVUE-300) 61 % injection 100 mL 100 mL, Intravenous, IMG once as needed, Contrast, 1 dose, Starting on Valeri 03/23/17 at 0339, Until [place] 03/23/17 at 0332 Given 03/23/2017 3:32 AM ASSISTANT ASSOCIATE PROFESSOR 100 mLs R ight Arm ondansetron (ZOFRAN) injection 4 mg 4 mg, Intravenous, Once, 1 dose, On [place]eri 03/23/17 at 0245, IV push over 2-5 minutes. Given 03/23/2017 2:38 AM ASSISTANT ASSOCIATE PROFESSOR 4 mg sodium chloride 0.9% bolus infusion 1,000 mL 1,000 mL, Intravenous, Administer over 15 Minutes, Bolus (Once), 1 dose, On Valeri 03/23/17 at 0245 New Bag 03/23/2017 2:38 AM ASSISTANT ASSOCIATE PROFESSOR 1,000 mLs documented in this encounter Active and Recently Administered Medications Times are shown in ASSISTANT ASSOCIATE PROFESSOR. Scheduled Medication Order 03/21/2017 03/22/2017 03/23/2017 HYDROmorphone [...] documented as of this encounter Care Teams Motor Vehicle Representative Relationship Specialty Start Date End Date Lavonne Ram MD [address] [address] PCP - General FAMILY PRACTICE 04/24/16 08/19/17 Meena Bansal MD [address] [address] [employer] [place] [employer] CARDIOVASCULAR DISEASE 04/24/16 documented as of this encounter
--- OUTSIDE RECORDS SUMMARY | 2024-04-26 07:03 | XMS_ITS | Encounter Summary ---
Author Organization [facility] Address [address] [place] [address]. [place] [address] [place] [address] Care Team Providers Care Vascular Manager Name Role Phone Lavonne Ram MD Primary Care Provider [phone] Meena Bansal MD Unavailable [phone] Encounter Details Date Type Department Care Team (Late st Contact Info) Description 12/02/[address] [facility] Emergency Room [address] [place], [place] [id number] Jimmie Navarro, DO [address] [facility] [address] [place], [place] [id number] Social History Tobacco Use Types Packs/Day Years Used Date Smoking Tobacco: Never Assessed Comments Unknown Sex and Gender Information Value Date Recorded Sex Assigned at Female 09/06/2020 12:50 AM CDT Legal Sex Female 10:47 AM CDT Gender Identity Female 09/06/2020 12:50 AM CDT Sexual Orientation Straight 03/18/2018 3: 01 AM HUMIDIFIER OPERATOR documented as of this encounter Plan [...] URINE CLEAN CATCH 12/02/2016 10:36 PM CDT [facility] COLOR (U) YELLOW 12/03/2016 12:05 AM CDT [facility] TRANSPARENCY CLEAR 12/03/2016 12:05 AM CDT [facility] SPECIFIC GRAVITY (U) 1.019 1.001 - 1.030 12/03/2016 12:05 AM CDT [facility] U PH 5.0 5.0 - 9.0 12/03/2016 12:05 AM T [facility] LEUKOCYTES (U) TRACE(A) NEGATIVE 12/03/2016 12:05 AM CDT [facility] NITRITES NEGATIVE NEGATIVE 12/03/2016 12:05 AM CDT [facility] PROTEIN (U) NEGATIVE <30 MG/DL 12/03/2016 12:05 AM CDT [facility] URINE GLUCOSE NEGATIVE NEGATIVE MG/DL 12/03/2016 12:05 AM CDT [facility] KETONES MG/DL (U) NEGATIVE NEGATIVE MG/DL 12/03/2016 12:05 AM T [facility] UROBILINOGEN NEGATIVE NEGATIVE MG/DL 12/03/2016 12:05 AM CDT [facility] BILIRUBIN (U) NEGATIVE NEGATIVE MG/DL 12/03/2016 12:05 AM CDT [facility] BLOOD (U) SMALL(A) NEGATIVE 12/03/2016 12:05 AM CDT [facility] CULTURE & SENSITIVITY INDICATED? SPECIMEN SETUP FOR CULTURE 12/03/2016 12:05 AM CDT [facility] SQUAMOUS EPITHELIALS FEW /LPF 12/03/2016 12:05 AM CDT [facility] MUCUS RARE /LPF 12/03/2016 12:05 AM CDT [facility] WBC/HPF 9(H) <6 /HPF 12/03/2016 12:05 AM CDT [facility] RBC/HPF 1 <6 /HPF 12/03/2016 12:05 AM T [facility] 12/02/2016 11:4 8 PM CDT 12/02/2016 11:53 PM CDT us Generic Conversion Md DURÁN URINE ORDERABLES Final Result [facility] [address] [place] [address], [place] [phone] * (ABNORMAL) COMPREHENSIVE METABOLIC PANEL (12/02/2016 11:47 PM CDT) GLUCOSE 157(H) 70 - 99 mg/dL 12/03/2016 12:15 AM CDT [facility] BUN 19 8 - 23 mg/dL 12/03/2016 12:15 AM CDT [facility] CREATININE S/P/B 0.70 0.60 - 1.10 mg/dL 12/03/2016 12:15 AM CDT [facility] SODIUM S/P/B 135(L) 136 - 145 mmol/L 12/03/2016 12:15 AM CDT [facility] POTASSIUM S/P/B 4.1 3.5 - 5.1 mmol/L 12/03/2016 12:15 AM T [facility] CHLORIDE S/P/B 98 98 - 107 mmol/L 12/03/2016 12:15 AM CDT [facility] CO2 27 22 - 29 mmol/L 12/03/2016 12:15 AM CDT [facility] BILIRUBIN TOTAL S/P/B 0.3 0.2 - 1.2 mg/dL 12/03/2016 12:15 AM T [facility] CALCIUM S/P/B 9.8 8.6 - 10.2 mg/dL 12/03/2016 12:15 AM T [facility] ALKALINE PHOSPHATASE S/P/B 59 35 - 104 U/L 12/03/2016 12:15 AM CDT [facility] AST 19 0 - 32 U/L 12/03/2016 12:15 AM T [facility] TOTAL PROTEIN S/P/B 7.4 6.4 - 8.3 g/dL 12/03/2016 12:15 AM T [facility] ALBUMIN S/P/B 3.5 3.5 - 5.2 g/dL 12/03/2016 12:15 AM CDT [facility] ALT 22 0 - 33 U/L 12/03/2016 12:15 AM CDT [facility] GLOBULIN 3.9(H) 2.3 - 3.6 g/dL 12/03/2016 12:15 AM T [facility] A/G RATIO 0.9(L) 1.0 - 2.0 12/03/2016 12:15 AM T [facility] ANION GAP 14 8 - 20 12/03/2016 12:15 AM CDT [facility] EGFR NON-AFR. AMER. >60 >60 mL/min/1.7 3m'2 12/03/2016 12:15 AM CDT [facility] EGFR AFR. AMER. >60 >60 mL/min/1.7 3m'2 12/03/2016 12:15 AM CDT [facility] Comment: NOTE: eGFR is not calculated for patients <18 years of age. This is an estimated GFR (CKD EPI) and should not be used for calculating drug doses. 12/02/2016 11:4 7 PM CDT 12/02/2016 11:53 PM CDT us Generic Conversion Md DURÁN LABORATORY Final R esult [facility] [address] [place] [address], * CULTURE URINE (12/02/2016 11:47 PM CDT) SPEC DESCRIPTION URINE CLEAN CATCH 12/03/2016 12:10 AM CDT [facility] SPECIAL REQUESTS NO SPECIAL REQUEST 12/03/2016 12:10 AM CDT [facility] CULTURE RESULT 10,000-49,000 COL/ML PSEUDOMONAS FLUORESCENS NONSTANDARDIZED SUSCEPTIBILITY TEST, RESULTS MUST BE INTERPRETED WITH CAUTION. 12/07/2016 8:42 AM CDT [facility] URINE SPECIMEN OBTAINED BY [...] DURÁN MICROBIOLOGY - GENERAL ORDERABLES Final Result [facility] [address] [place] [address], [place] [phone] * LACTIC ACID (12/02/2016 11:47 PM CDT) LACTIC ACID VENOUS 1.33 0.5 - 2.2 mmol/L 12/03/2016 12:13 AM CDT [facility] Comment: NOTE: Acetaminophen, N Acetyl p [...] LABORATORY Final R esult Performing Organization Address [facility]/ZIP Co de Phone Number [facility] [address] [place] [address], [place] [phone] * LIPASE (12/02/2016 11:47 PM CDT) Pathologist [facility] LIPASE 26 13 - 60 U/L 12/03/2016 12:15 AM CDT [facility] SERUM OR PLASMA SPECIMEN / Unknown 12/02/2016 11:47 PM CDT 12/02/2016 11:53 PM CDT us Generic Conversion Md DURÁN LABORATORY Final R esult [facility] [address] [place] [address], * D-DIMER, QUANTITATIVE (12/02/2016 11:47 PM CDT) [facility] D-DIMER <150 0 - 230 D DU ng/mL 12/03/2016 12:14 AM CDT [facility] Comment: TESTING PERFORMED ON [place] [employer] ANA[employer]ER. NOTE: RESULTS OF THIS [...] Conversion Md DURÁN LABORATORY Final R esult [facility] [address] [place] [address], * (ABNORMAL) CBC W/DIFF AUTOMATED (12/02/2016 11:47 PM CDT) [facility] WBC 10.5 4.8 - 10.8 x10'3/uL 12/03/2016 12:00 AM CDT [facility] RBC 4.00(L) 4.20 - 5.40 x10'6/uL 12/03/2016 12:00 AM CDT [facility] HGB 11.4(L) 12.0 - 16.0 G/DL 12/03/2016 12:00 AM CDT [facility] HCT 35.6(L) 38.0 - 48.0 % 12/03/2016 12:00 AM CDT [facility] MCV 89.0 81.0 - 99.0 FL 12/03/2016 12:00 AM CDT [facility] MCH 28.5 27.0 - 31.0 PG 12/03/2016 12:00 AM CDT [facility] MCHC 32.0 32.0 - 36.0 G/DL 12/03/2016 12:00 AM CDT [facility] RDW 14.0 11.5 - 14.5 % 12/03/2016 12:00 AM CDT [facility] PLT 273 130 - 400 x10'3/uL 12/03/2016 12:00 AM CDT [facility] MPV 9.8 9.3 - 12.2 FL 12/03/2016 12:00 AM CDT [facility] IMMATURE GRANS % 0.3 0.0 - 1.0 % 12/03/2016 12:00 AM CDT [facility] NEUTROPHILS % 63.2 43.0 - 65.0 % 12/03/2016 12:00 AM CDT [facility] LYMPHOCYTES % 25.2 20.0 - 46.0 % 12/03/2016 12:00 AM CDT [facility] MONOCYTES % 7.9 5.0 - 12.0 % 12/03/2016 12:00 AM T [facility] EOSINOPHILS 3.1(H) 1.0 - 3.0 % 12/03/2016 12:00 AM CDT [facility] BASOPHILS 0.3 0.0 - 1.0 % 12/03/2016 12:00 AM T [facility] WHOLE BLOOD SPECIMEN / Unknown 12/02/2016 11:47 PM CDT 12/02/2016 11:53 PM CDT us Generic Conversion Md DURÁN LABORATORY Final R esult [facility] [address] [place] [address], * AMYLASE (12/02/2016 11:47 PM CDT) AMYLASE S/P/B 45 28 - 100 U/L 12/03/2016 12:15 AM CDT [facility] SERUM OR PLASMA SPECIMEN / Unknown 12/02/2016 11:47 PM CDT 12/02/2016 11:53 PM CDT us Generic Conversion Md DURÁN LABORATORY Final R esult Performing Organization Address [facility]/ZIP Co de Phone Number [facility] [address] [place] [address], documented in this encounter Visit Diagnoses Diagnosis Right upper quadrant pain Abdominal pain, right upper quadrant documented in this encounter Additional Health Concerns Infection Onset Date Last Indicated Resolved Time MRSA Comment:mrsa nares pos. 02/201802/03/2017 02/03/2017 09/01/19 19 8:40 AM CDT documented as of this encounter Care Teams Vascular Manager Relationship Specialty Start Date End Date Lavonne Ram MD [address] [address] PCP - General FAMILY PRACTICE 04/24/16 08/19/17 Meena Bansal MD [address] [facility] [place] [address] [employer] CARDIOVASCULAR DISEASE 04/24/16 documented as of this encounter
--- OUTSIDE RECORDS SUMMARY | 2024-04-26 07:03 | XMS_ITS | Encounter Summary ---
Author Organization [facility] Address [address] [place] [address]. [place] [address] [place] [address] Care Team Providers Care Front Office Secretary Name Role Phone Meena Bansal MD Unavailable [phone] Gerardo Hoffman MD Primary Care Provider [phone] Reason for Referral * (Routine) - Closed Specialty Diagnoses / Procedures Referred By Contac t Referred To Contact Procedures OT eval and treat Sarah Beth Reyes MD Phone: tel: [phone] fax: Referral ID Status Reason Start Date Expiration Date Visits Re quested Visits Authorized [id number] Closed 08/20/2017 09/19/2018 1 1 * Imaging (Emergency) - Closed Specialty Diagnoses / Procedures Referred By Contac t Referred To Contact Procedures CTA CHEST Tylor Brewer MD Phone: tel: fax: Referral ID Status Reason Start Date Expiration Date Visits Re quested Visits Authorized [id number] Closed 08/20/2017 09/19/2018 1 1 * Imaging (Emergency) - Closed Specialty Diagnoses / Procedures Referred By Contac t Referred To Contact Procedures CT HEAD WO CON Tylor Brewer MD Phone: tel: fax: Referral ID Status Reason Start Date Expiration Date Visits Re quested Visits Authorized [id number] Closed 08/20/2017 09/19/2018 1 1 Reason for [...] Expiration Date Visits Re quested Visits Authorized [id number] 1 1 Encounter Details Date Type Department Care Team (Late st Contact Info) Description 08/20/2017 1:06 PM CDT - 08/22/2017 3:08 PM CDT Emergency [facility] Med/Surg 3[address] [place] [address] Tylor Brewer MD [address] [place] [address] [place] [address] [phone] (Work) Sarah Beth Reyes MD [address] [place] [address] [phone] (Work) Lila Mathis, INDUSTRIAL SERVICER [address] [facility] [address] [place], [place] [id number] Respiratory Symptoms (cough, sob, occasional low grade [...] Sexual Orientation Straight 03/18/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 Now resolved. Patient received Wolford x 2 doses for severe headache on [...] No results for input(s): PH, PCO2, PO2, [id number], BICARBWB, BASEDEFICIT, BASEEXCESS in the [id number] hours. No results found for this or [...] Care Everywhere. * SINUSITIS DISCHARGE INSTRUCTIONS, ADULT (NORWEGIAN) * LEVOFLOXACIN (SYSTEMIC), ADULT (NORWEGIAN) * PREDNISONE, ADULT (NORWEGIAN) * GUAIFENESIN, ADULT (NORWEGIAN) documented in this encounter Medications at Time [...] by/date Fr. Cordoba 08/22/17 * Nat Gordon, DRAFTSPERSON - 08/22/2017 9:52 AM CDT 08/22/17 0900 [...] legs feel weak) Prior Function Level of [place] Independent with functional transfers;Needs assistance with ADLs;Independent [...] that she lives with her daughter Marin ([phone]) in a ranch home with 2 entry [...] or hearing is identified. *Pharmacy used is [facility] in [place], [place]. PCP and insurance plan is verified [...] with her oncologist every 3 months in [place]. Educated patient about HPV screening and informed [...] 2 Wheeled walker Prior Function Level of [place] Independent with functional transfers;Independent with ambulation;Needs assistance [...] WITH [employer]. EDU ON LHAE (SOCK AID/SYSTEMS DEVELOPMENT CONSULTANT) FOR INCREASED IND IN THE HOME. PT [...] summary Yes Objective Objective BASED ON EVAL [id number] PT IS VERY PLEASANT 62 YO WOMAN ADMITTED 2/2 BRONCHITIS. PT WAS ABLE TO COMPLETE MOST BADLS IND WITH OCCASIONAL FAMILY ASSIST DRAFTSPERSON. PT APPEARS AT BASELINE AT EVAL. PT COMPELTE EDU REGARDING LHAE IN ORDER TO INCREASE IND WITH SELF CARE IN THE HOME, V/U. WILL D/C FROM OCC THERAPY. PT IN AGREEMENT WITHPLAN. JENIFFER BUCK OTR/L * Lila Cordelia Carlos, INDUSTRIAL SERVICER - 08/21/2017 9:57 AM CDT Mohsen Marques [...] denies any visual complaints. She is requesting Wolford for her headache as she states this [...] Reyes MD - 08/20/2017 7:55 PM [facility]T [facility] Mohsen Marques Age: 62-year-old [...] Brewer MD - 08/20/2017 5:12 PM CDT [place], [place] EMERGENCY DEPARTMENT ENCOUNTER HISTORICAL INFORMATION Primary [...] observation and further management. Tylor Brewer M.D., [facility] Emergency Medicine Physician Addendum: The CT scan [...] - 99 mg/dL 08/22/2017 11:43 AM CDT [facility] ORDERS INTERFACE 08/22/2017 11:3 9 AM CDT us Yesi Vora MD POCT ORDERABLES - DEVICE Final Result Performing Organization Address [facility] de Phone Number [facility] ORDERS INTERFACE US * (ABNORMAL) POCT glucose (08/22/2017 6:00 AM CDT) GLUCOSE POC 255(H) 70 - 99 mg/dL 08/22/2017 6:04 AM CDT [facility] ORDERS INTERFACE 08/22/2017 6:00 AM CDT us Yesi Vora MD POCT ORDERABLES - DEVICE Final Result Performing Organization Address [facility] Co de Phone Number [facility] ORDERS INTERFACE US * (ABNORMAL) BASIC METABOLIC PANEL (08/22/2017 3:28 AM CDT) GLUCOSE 243(H) 70 - 99 MG/DL 08/22/2017 4:55 AM [facility] BUN 21(H) 7 - 18 MG/DL 08/22/2017 4:55 AM [facility] CREATININE S/P/B 0.80 0.55 - 1.02 MG/DL 08/22/2017 4:55 AM [facility] SODIUM S/P/B 137 136 - 145 MMOL/L 08/22/2017 4:55 AM [facility] POTASSIUM S/P/B 4.2 3.5 - 5.1 MMOL/L 08/22/2017 4:55 AM [facility] CHLORIDE S/P/B 104 100 - 108 MMOL/L 08/22/2017 4:55 AM [facility] CO2 25.1 21 - 32 MMOL/L 08/22/2017 4:55 AM [facility] CALCIUM S/P/B 9.2 8.5 - 10.1 MG/DL 08/22/2017 4:55 AM [facility] ANION GAP 12.1 8 - 20 MMOL/L 08/22/2017 4:55 AM [facility] BUN CREATININE RATIO 26.2(H) 6 - 26 08/22/2017 4:55 AM [facility] EGFR NON-AFR. AMER. 80(L) >90 ML/MIN/1.7 3 M2 08/22/2017 4:55 AM [facility] EGFR AFR. AMER. >90 >90 ML/MIN/1.7 3 M2 08/22/2017 4:55 AM [facility] Comment: NOTE: eGFR is not calculated for patients <18 years of age. This is an estimated GFR (CKD EPI) and should not be used for calculating drug doses. 08/22/2017 3:28 AM CDT us Lila Mathis APRN LABORATORY Final Result [facility] [address] [place] [address], [place] [phone] * (ABNORMAL) CBC W/DIFF AUTOMATED (08/22/2017 3:28 AM CDT) WBC 17.1(H) 4.8 - 10.8 x10'3/uL 08/22/2017 4:16 AM CDT [facility] RBC 3.89(L) 4.20 - 5.40 x10'6/uL 08/22/2017 4:16 AM CDT [facility] HGB 10.5(L) 12.0 - 16.0 G/DL 08/22/2017 4:16 AM CDT [facility] HCT 34.2(L) 38.0 - 48.0 % 08/22/2017 4:16 AM CDT [facility] MCV 87.9 81.0 - 99.0 FL 08/22/2017 4:16 AM CDT [facility] MCH 27.0 27.0 - 31.0 PG 08/22/2017 4:16 AM CDT [facility] MCHC 30.7(L) 32.0 - 36.0 G/DL 08/22/2017 4:16 AM CDT [facility] RDW 15.1(H) 11.5 - 14.5 % 08/22/2017 4:16 AM CDT [facility] PLT 320 130 - 400 x10'3/uL 08/22/2017 4:16 AM CDT [facility] MPV 9.7 9.3 - 12.2 FL 08/22/2017 4:16 AM CDT [facility] NEUTROPHILS % 71.7(H) 43.0 - 65.0 % 08/22/2017 4:16 AM CDT [facility] LYMPHOCYTES % 17.0(L) 20.0 - 46.0 % 08/22/2017 4:16 AM CDT [facility] MONOCYTES % 9.6 5.0 - 12.0 % 08/22/2017 4:16 AM CDT [facility] EOSINOPHILS 0.7(L) 1.0 - 3.0 % 08/22/2017 4:16 AM CDT [facility] BASOPHILS 0.2 0.0 - 1.0 % 08/22/2017 4:16 AM CDT [facility] IMMATURE GRANS % 0.8 0.0 - 1.0 % 08/22/2017 4:16 AM CDT [facility] 08/22/2017 3:28 AM CDT us Lila Mathis APRN LABORATORY Final Result [facility] [address] [place] [address], [place] [phone] * (ABNORMAL) POCT glucose (08/21/2017 10:11 PM CDT) [facility] GLUCOSE POC 334(H) 70 - 99 mg/dL 08/21/2017 10:19 PM CDT [facility] ORDERS INTERFACE 08/21/2017 10:1 1 PM CDT us Yesi Vora MD POCT ORDERABLES - DEVICE Final Result [facility] ORDERS INTERFACE US * (ABNORMAL) POCT glucose (08/21/2017 4:39 PM CDT) GLUCOSE POC 260(H) 70 - 99 mg/dL 08/21/2017 4:42 PM CDT [facility] ORDERS INTERFACE 08/21/2017 4:39 PM CDT Yesi Vora MD POCT ORDERABLES - DEVICE Final Result [facility] ORDERS INTERFACE US * (ABNORMAL) POCT glucose (08/21/2017 11:22 AM CDT) GLUCOSE POC 195(H) 70 - 99 mg/dL 08/21/2017 11:24 AM CDT [facility] ORDERS INTERFACE 08/21/2017 11:2 2 AM CDT Yesi Vora MD POCT ORDERABLES - DEVICE Final Result Performing Organization Address [facility]/ZIP Co de Phone Number [facility] ORDERS INTERFACE US * MRSA SCREENING (08/21/2017 5:50 AM CDT) SPEC DESCRIPTION NASAL 08/21/2017 5:54 AM CDT [facility] SPECIAL REQUESTS NO SPECIAL REQUEST Successful Call: CRISTIAN GALAVIZ called 08/22/2017 07:15 AM to ROOM [id number] (*[id number]/DAVID NASCIMENTO) by [id number]. Read Back: Yes Successful Call: PEPE SALAZAR SDESSRE Q called 08/22/2017 07:20 AM to ROOM [id number] (*[id number]/DAVID NASCIMENTO) by [id number]. Read Back: Yes 08/21/2017 5:54 AM CDT [facility] CULTURE RESULT METHICILLIN RESISTANT STAPH AUREUS PRESENT FOLLOW ISOLATION PROTOCOL. 08/22/2017 7:19 AM CDT [facility] CULTURE RESULT POSITIVE RESULTS NEED PHONED TO PHYSICIAN, BY NURSING STAFF, MALDONADO, FOR POSSIBLE DECOLONIZATION PROTOCOL ORDERS. Successful Call: PEPE SALAZAR SDES,SRE Q called 08/22/2017 07:20 AM to ROOM [id number] (*[id number]/DAVID NASCIMENTO) by [id number]. Read Back: Yes 08/22/2017 7:19 AM CDT [facility] SPECIMEN FROM INTERNAL NOSE / Unknown 08/21/2017 5:50 AM CDT 08/21/2017 6:29 AM CDT Yesi Vora MD MICROBIOLOGY - GENERAL O RDERABLES Final Result [facility] [address] [place] [address], [place] [phone] * (ABNORMAL) POCT glucose (08/21/2017 5:35 AM CDT) GLUCOSE POC 146(H) 70 - 99 mg/dL 08/21/2017 5:40 AM CDT [facility] ORDERS INTERFACE 08/21/2017 5:35 AM CDT Yesi Vora MD POCT ORDERABLES - DEVICE Final Result Performing Organization Address City/[facility]/ZIP Co de Phone Number [facility] ORDERS INTERFACE US * (ABNORMAL) HEMOGLOBIN, GLYCOSYLATED (08/21/2017 3:41 AM CDT) HGB A1C 8.3(H) 4.2 - 6.3 % 08/21/2017 4:22 AM CDT [facility] Comment: ADA GUIDELINES 2010 5.7 TO 6.4% INCREASED RISK OF DIABETES > OR = 6.5% CONSISTENT WITH DIABETES ESTIMATED AVG GLUCOSE 192 mg/dL 08/21/2017 4:22 AM CDT [facility] 08/21/2017 3:41 AM CDT Sarah Beth Reyes MD LABORATORY Final Result [facility] [address] [place] [address], * (ABNORMAL) BASIC METABOLIC PANEL (08/21/2017 3:41 AM CDT) [facility] GLUCOSE 188(H) 70 - 99 MG/DL 08/21/2017 6:32 AM CDT [facility] BUN 12 7 - 18 MG/DL 08/21/2017 6:32 AM CDT [facility] CREATININE S/P/B 0.70 0.55 - 1.02 MG/DL 08/21/2017 6:32 AM CDT [facility] SODIUM S/P/B 138 136 - 145 MMOL/L 08/21/2017 6:32 AM T [facility] POTASSIUM S/P/B 4.2 3.5 - 5.1 MMOL/L 08/21/2017 6:32 AM T [facility] CHLORIDE S/P/B 106 100 - 108 MMOL/L 08/21/2017 6:32 AM T [facility] CO2 23.9 21 - 32 MMOL/L 08/21/2017 6:32 AM T [facility] CALCIUM S/P/B 9.1 8.5 - 10.1 MG/DL 08/21/2017 6:32 AM T [facility] ANION GAP 12.3 8 - 20 MMOL/L 08/21/2017 6:32 AM T [facility] BUN CREATININE RATIO 17.1 6 - 26 08/21/2017 6:32 AM CDT [facility] EGFR NON-AFR. AMER. >90 >90 ML/MIN/1.7 3 M2 08/21/2017 6:32 AM CDT [facility] EGFR AFR. AMER. >90 >90 ML/MIN/1.7 3 M2 08/21/2017 6:32 AM T [facility] Comment: NOTE: eGFR is not calculated for patients <18 years of age. This is an estimated GFR (CKD EPI) and should not be used for calculating drug doses. 08/21/2017 3:41 AM CDT us Sarah Beth Reyes MD LABORATORY Final Result [facility] [address] [place] [address], [place] [phone] * (ABNORMAL) CBC W/DIFF AUTOMATED (08/21/2017 3:41 AM CDT) WBC 12.4(H) 4.8 - 10.8 x10'3/uL 08/21/2017 4:05 AM CDT [facility] RBC 3.90(L) 4.20 - 5.40 x10'6/uL 08/21/2017 4:05 AM CDT [facility] HGB 10.2(L) 12.0 - 16.0 G/DL 08/21/2017 4:05 AM CDT [facility] HCT 33.6(L) 38.0 - 48.0 % 08/21/2017 4:05 AM CDT [facility] MCV 86.2 81.0 - 99.0 FL 08/21/2017 4:05 AM CDT [facility] MCH 26.2(L) 27.0 - 31.0 PG 08/21/2017 4:05 AM CDT [facility] MCHC 30.4(L) 32.0 - 36.0 G/DL 08/21/2017 4:05 AM CDT [facility] RDW 15.3(H) 11.5 - 14.5 % 08/21/2017 4:05 AM CDT [facility] PLT 299 130 - 400 x10'3/uL 08/21/2017 4:05 AM CDT [facility] MPV 9.7 9.3 - 12.2 FL 08/21/2017 4:05 AM CDT [facility] NEUTROPHILS % 68.5(H) 43.0 - 65.0 % 08/21/2017 4:05 AM CDT [facility] LYMPHOCYTES % 19.7(L) 20.0 - 46.0 % 08/21/2017 4:05 AM CDT [facility] MONOCYTES % 8.5 5.0 - 12.0 % 08/21/2017 4:05 AM CDT [facility] EOSINOPHILS 2.5 1.0 - 3.0 % 08/21/2017 4:05 AM CDT [facility] BASOPHILS 0.3 0.0 - 1.0 % 08/21/2017 4:05 AM CDT [facility] IMMATURE GRANS % 0.5 0.0 - 1.0 % 08/21/2017 4:05 AM CDT [facility] 08/21/2017 3:41 AM CDT us Sarah Beth Reyes MD LABORATORY Final Result Performing Organization Address City/[facility]/ZIP Co de Phone Number [facility] [address] [place] [address], [place] [phone] * (ABNORMAL) POCT glucose (08/20/2017 8:59 PM CDT) GLUCOSE POC 161(H) 70 - 99 mg/dL 08/20/2017 9:04 PM CDT [facility] ORDERS INTERFACE 08/20/2017 8:59 PM CDT us Yesi Vora MD POCT ORDERABLES - DEVICE Final Result [facility] ORDERS INTERFACE US * THYROID STIM HORMONE, TSH (08/20/2017 8:32 PM CDT) TSH 0.612 0.358 - 3.74 uIU/ML 08/20/2017 9:40 PM CDT [facility] Comment: HIGH DOSES OF BIOTIN MAY INTERFERE WITH THIS TEST RESULT. CORRELATION TO CLINICAL HISTORY AND PRESENTATION RECOMMENDED. 08/20/2017 8:32 PM CDT Sarah Beth Reyes MD LABORATORY Final Result Performing Organization Address City/[facility]/ZIP Co de Phone Number [facility] [address] [place] [address], [place] [phone] * TROPONIN, QUANT (08/20/2017 7:49 PM CDT) TROPONIN I <0.015 <0.045 ng/mL. 08/20/2017 8:35 PM CDT [facility] Comment: HIGH DOSES OF BIOTIN MAY INTERFERE WITH THIS TEST RESULT. CORRELATION TO CLINICAL HISTORY AND PRESENTATION RECOMMENDED. 08/20/2017 7:49 PM CDT Tylor Brewer MD LABORATORY Final Resu lt [facility] [address] [place] [address], [place] [phone] * INFLUENZA A & B (08/20/2017 5:24 PM CDT) SPECIMEN TYPE NASAL 08/20/2017 5:35 PM CDT [facility] INFLUENZA A NEGATIVE NEGATIVE 08/20/2017 6:01 PM CDT [facility] INFLUENZA B NEGATIVE NEGATIVE 08/20/2017 6:01 PM CDT [facility] Comment: Interpretation: Negative for [...] MICROBIOLOGY - GENERAL ORD ERABLES Final Result [facility] [address] [place] [address], * CTA CHEST (08/20/2017 4:59 PM CDT) [...] PM CDT) 08/20/2017 2:44 PM CDT Narrative [facility] - 08/20/2017 2:44 PM CDT ?[facility] ? [address], [place] ? Test Date: ?2017-08-20 Pat Name: ? MOHSEN MARQUES ?Department: ?? 41 ? Room: ? INPRINPR Gender: ? Female ? Landfill Attendant: ?? RG : ?[id number] ? Requested By: BRIA SIMI Order Number: [id number] ? Reading MD: ?? Bubba Moralesruluz elena ? Measurements Intervals ?[place] ? Rate: ? 84 ? P: ?32 SC: ? 132 ?QRS: ?6 QRSD: ? 79 ? T: ?31 QT: ? 339 ? QTc: ?402 ? Interpretive Statements SINUS RHYTHM NONSPECIFIC T-WAVE ABNORMALITY Compared to ECG 03/23/2017 02:31:10 No significant change No ischemic changes CRITICAL ALERT ISSUED ON 08-20-2017 13:19:37 Procedure Note Bubba Dumont MD - 08/20/[address] Test Date: 2017-08-20 Pat Name: MOHSEN MARQUES Department: 41 Room: [facility] Gender: Female Landfill Attendant: JENNIFER : [id number] Requested By: BRIA BELCHER Order Number: [id number] Reading MD: Bubba Dumont Measurements Intervals [place] Rate: 84 P: 32 SC: 132 QRS: 6 QRSD: 79 T: 31 QT: 339 QTc: 402 Interpretive Statements SINUS RHYTHM NONSPECIFIC T-WAVE ABNORMALITY Compared to ECG 03/23/2017 02:31:10 No significant change No ischemic changes CRITICAL ALERT ISSUED ON 08-20-2017 13:19:37 us Bria Belcher [facility] [place] ECG ORDERABLES Final Res ult [facility] * XR CHEST PA+LAT (08/20/2017 2:19 [...] effusion. =====IMPRESSION:===== No acute findings. Bria Belcher [facility] [place] GENERAL IMAGING Final Res ult * THYROXINE, FREE (FT4) (08/20/2017 1:32 PM CDT) Pathologist [facility] FREE T4 1.01 0.76 - 1.46 NG/DL 08/20/2017 6:05 PM CDT [facility] 08/20/2017 1:32 PM CDT us Tylor Brewer MD LABORATORY Final Resu lt [facility] [address] [place] [address], [place] [phone] * BNP (08/20/2017 1:32 PM CDT) Pathologist [facility] B TYPE NATRIURETIC PEPTIDE 13 <100 PG/ML 08/20/2017 6:00 PM CDT [facility] 08/20/2017 1:32 PM CDT Tylor Brewer MD LABORATORY Final Resu lt Performing Organization Address [facility] Co de Phone Number [facility] [address] [place] [address], [place] [phone] * D-DIMER, QUANTITATIVE (08/20/2017 1:32 PM CDT) D-DIMER <150 0 - 230 D DU ng/mL 08/20/2017 2:48 PM CDT [facility] Comment: TESTING PERFORMED ON VA ACL [...] . 08/20/2017 1:32 PM CDT Bria Belcher [facility] [place] LABORATORY Final Res ult Performing Organization Address [facility] Co de Phone Number [facility] [address] [place] [address], [place] [phone] * PARTIAL THROMBOPLASTIN TIME,PTT (08/20/2017 1:32 PM CDT) Pathologist [facility] PTT 34.3 25.5 - 37.6 SEC 08/20/2017 2:48 PM CDT [facility] 08/20/2017 1:32 PM CDT [facility] Kathy Belcher [facility] LABORATORY Final Res ult [facility] [address] [place] [address], * (ABNORMAL) PROTIME/INR, VENOUS (08/20/2017 1:32 PM CDT) PROTIME 13.9(H) 9.6 - 12.2 SEC 08/20/2017 2:48 PM CDT [facility] INR 1.3 08/20/2017 2:48 PM CDT [facility] Comment: Recommended INR Therapeutic Goals: ??2.0-3.0 Routine Therapy ??2.5-3.5 Mechanical Prosthetic Valves (High Risk) ??3.0-4.0 Acute VA (to prevent Systemic Embolism) The INR is used only for patients on stable oral anticoagulant therapy. It makes no significant contribution to the diagnosis or treatment of patients whose Protime is prolonged for other reasons. 08/20/2017 1:32 PM CDT [facility] Kathy Belcher [facility] LABORATORY Final Res ult Performing Organization Address [facility] Co de Phone Number [facility] [address] [place] [address], [place] [phone] * CKMB(MB FRACTION ONLY) (08/20/2017 1:32 PM CDT) CK-MB 2.7 0.5 - 3.6 NG/ML 08/20/2017 2:09 PM CDT [facility] Comment: HIGH DOSES OF BIOTIN MAY INTERFERE WITH THIS TEST RESULT. CORRELATION TO CLINICAL HISTORY AND PRESENTATION RECOMMENDED. 08/20/2017 1:32 PM CDT [facility] Final Res ult Performing Organization Address City/[facility]/ZIP Co de Phone Number [facility] [address] [place] [address], [place] [phone] * MAGNESIUM (08/20/2017 1:32 PM CDT) MAGNESIUM 2.0 1.8 - 2.4 MG/DL 08/20/2017 2:09 PM CDT [facility] 08/20/2017 1:32 PM CDT Bria Belcher [facility] LABORATORY Final Res ult Performing Organization Address [facility] Co de Phone Number [facility] [address] [place] [address], [place] [phone] * CK (CPK) (08/20/2017 1:32 PM CDT) CPK 60 21 - 215 U/L 08/20/2017 2:09 PM CDT [facility] 08/20/2017 1:32 PM CDT Bria Belcher [facility] Final Res ult Performing Organization Address City/[facility]/ZIP Co de Phone Number [facility] [address] [place] [address], [place] [phone] * TROPONIN, QUANT (08/20/2017 1:32 PM CDT) TROPONIN I <0.015 <0.045 ng/mL. 08/20/2017 2:09 PM CDT [facility] Comment: HIGH DOSES OF BIOTIN MAY INTERFERE WITH THIS TEST RESULT. CORRELATION TO CLINICAL HISTORY AND PRESENTATION RECOMMENDED. 08/20/2017 1:32 PM CDT us Bria Belcher [facility] [place] Final Res ult [facility] [address] [place] [address], [place] [phone] * (ABNORMAL) COMPREHENSIVE METABOLIC PANEL (08/20/2017 1:32 PM CDT) [facility] GLUCOSE 242(H) 70 - 99 MG/DL 08/20/2017 2:09 PM CDT [facility] BUN 17 7 - 18 MG/DL 08/20/2017 2:09 PM CDT [facility] CREATININE S/P/B 0.77 0.55 - 1.02 MG/DL 08/20/2017 2:09 PM CDT [facility] SODIUM S/P/B 140 136 - 145 MMOL/L 08/20/2017 2:09 PM CDT [facility] POTASSIUM S/P/B 3.8 3.5 - 5.1 MMOL/L 08/20/2017 2:09 PM CDT [facility] CHLORIDE S/P/B 107 100 - 108 MMOL/L 08/20/2017 2:09 PM CDT [facility] CO2 25.9 21 - 32 MMOL/L 08/20/2017 2:09 PM CDT [facility] CALCIUM S/P/B 9.3 8.5 - 10.1 MG/DL 08/20/2017 2:09 PM CDT [facility] BILIRUBIN TOTAL S/P/B 0.5 0.2 - 1.2 MG/DL 08/20/2017 2:09 PM CDT [facility] TOTAL PROTEIN S/P/B 8.3(H) 6.4 - 8.2 G/DL 08/20/2017 2:09 PM CDT [facility] ALBUMIN S/P/B 3.1(L) 3.4 - 5.0 G/DL 08/20/2017 2:09 PM CDT [facility] AST 10(L) 15 - 37 U/L 08/20/2017 2:09 PM CDT [facility] ALT 22 14 - 55 U/L 08/20/2017 2:09 PM CDT [facility] ALKALINE PHOSPHATASE S/P/B 85 50 - 136 U/L 08/20/2017 2:09 PM CDT [facility] [facility] ANION GAP 10.9 8 - 20 MMOL/L 08/20/2017 2:09 PM CDT [facility] BUN CREATININE RATIO 22.0 6 - 26 08/20/2017 2:09 PM CDT [facility] A/G RATIO 0.6(L) 1.0 - 2.0 RATIO 08/20/2017 2:09 PM CDT [facility] EGFR NON-AFR. AMER. 83(L) >90 ML/MIN/1.7 3 M2 08/20/2017 2:09 PM CDT [facility] EGFR AFR. AMER. >90 >90 ML/MIN/1.7 3 M2 08/20/2017 2:09 PM T [facility] Comment: NOTE: eGFR is not calculated for patients <18 years of age. This is an estimated GFR (CKD EPI) and should not be used for calculating drug doses. 08/20/2017 1:32 PM CDT Bria Belcher [facility] Final Res ult [facility] [address] [place] [address], [place] [phone] * (ABNORMAL) CBC W/DIFF AUTOMATED (08/20/2017 1:32 PM CDT) WBC 14.1(H) 4.8 - 10.8 x10'3/uL 08/20/2017 1:42 PM CDT [facility] RBC 4.39 4.20 - 5.40 x10'6/uL 08/20/2017 1:42 PM CDT [facility] HGB 11.8(L) 12.0 - 16.0 G/DL 08/20/2017 1:42 PM CDT [facility] HCT 37.8(L) 38.0 - 48.0 % 08/20/2017 1:42 PM CDT [facility] MCV 86.1 81.0 - 99.0 FL 08/20/2017 1:42 PM CDT [facility] MCH 26.9(L) 27.0 - 31.0 PG 08/20/2017 1:42 PM CDT [facility] MCHC 31.2(L) 32.0 - 36.0 G/DL 08/20/2017 1:42 PM CDT [facility] RDW 15.2(H) 11.5 - 14.5 % 08/20/2017 1:42 PM CDT [facility] PLT 375 130 - 400 x10'3/uL 08/20/2017 1:42 PM CDT [facility] MPV 9.4 9.3 - 12.2 FL 08/20/2017 1:42 PM CDT [facility] NEUTROPHILS % 71.9(H) 43.0 - 65.0 % 08/20/2017 1:42 PM CDT [facility] LYMPHOCYTES % 18.5(L) 20.0 - 46.0 % 08/20/2017 1:42 PM CDT [facility] MONOCYTES % 6.8 5.0 - 12.0 % 08/20/2017 1:42 PM CDT [facility] EOSINOPHILS 1.9 1.0 - 3.0 % 08/20/2017 1:42 PM CDT [facility] BASOPHILS 0.3 0.0 - 1.0 % 08/20/2017 1:42 PM CDT [facility] IMMATURE GRANS % 0.6 0.0 - 1.0 % 08/20/2017 1:42 PM CDT [facility] 08/20/2017 1:32 PM CDT Bria Belcher [facility] Final Res ult [facility] [address] [place] [address], documented in this encounter Visit Diagnoses Diagnosis Bronchitis- Primary Bronchitis, not specified as acute or chronic Chest pain, unspecified type Nonintractable headache, unspecified chronicity pattern, unspecified headache type Weakness Other malaise and fatigue Other fatigue Abnormal CT scan, sinus Nonspecific (abnormal) findings on radiological and other examination of skull and head Hypertension Unspecified essential hypertension Morbid obesity with BMI of 50.0-59.9, adult ([facility]) Morbid obesity Sepsis ([facility]) Type 2 diabetes mellitus ([facility]) Type II or unspecified type diabetes mellitus [...] RN) 0819 (Given - Provider: Maria Guadalupe Poloe RN)1152 (Given - Provider: Maria Guadalupe Poole [...] documented as of this encounter Care Teams Front Office Secretary Relationship Specialty Start Date End Date Gerardo Hoffman MD [address] [place] [address] PCP - General FAMILY PRACTICE 08/20/17 Meena Bansal MD [address] [place] [address] [employer] Software Configuration Engineer CARDIOVASCULAR DISEASE 04/24/16 documented as of this encounter
--- OUTSIDE RECORDS SUMMARY | 2024-04-26 07:03 | XMS_ITS | Encounter Summary ---
Author Organization [facility] Address [address] [place] [address]. [place] [address] [place] [address] Care Team Providers Care Pattern Storage Clerk Name Role Phone Lavonne Ram MD Primary Care Provider [phone] Meena Bansal MD Unavailable [phone] Encounter Details Date Type Department Care Team (Late st Contact Info) Description 12/01/2016 Emergency [facility] Emergency Room [place], [place] [id number] Jimmie Navarro, DO [address] [facility] [address] [place], [place] [id number] Social History Tobacco Use Types Packs/Day Years Used Date Smoking Tobacco: Never Assessed Comments Unknown Sex and Gender Information Value Date Recorded Sex Assigned at Female 09/06/2020 12:50 AM CDT Legal Sex Female 10:47 AM CDT Gender Identity Female 09/06/2020 12:50 AM CDT Sexual Orientation Straight 03/18/2018 3: 01 AM 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 documented as of this encounter Plan of [...] - 99 mg/dL 12/01/2016 3:33 PM CDT [facility] BUN 13 8 - 23 mg/dL 12/01/2016 3:33 PM CDT [facility] CREATININE S/P/B 0.70 0.60 - 1.10 mg/dL 12/01/2016 3:33 PM CDT [facility] SODIUM S/P/B 138 136 - 145 mmol/L 12/01/2016 3:33 PM CDT [facility] POTASSIUM S/P/B 4.1 3.5 - 5.1 mmol/L 12/01/2016 3:33 PM CDT [facility] CHLORIDE S/P/B 100 98 - 107 mmol/L 12/01/2016 3:33 PM CDT [facility] CO2 26 22 - 29 mmol/L 12/01/2016 3:33 PM CDT [facility] BILIRUBIN TOTAL S/P/B 0.4 0.2 - 1.2 mg/dL 12/01/2016 3:33 PM CDT [facility] CALCIUM S/P/B 10.2 8.6 - 10.2 mg/dL 12/01/2016 3:33 PM CDT [facility] ALKALINE PHOSPHATASE S/P/B 63 35 - 104 U/L 12/01/2016 3:33 PM CDT [facility] AST 19 0 - 32 U/L 12/01/2016 3:33 PM CDT [facility] TOTAL PROTEIN S/P/B 8.5(H) 6.4 - 8.3 g/dL 12/01/2016 3:33 PM CDT [facility] ALBUMIN S/P/B 4.0 3.5 - 5.2 g/dL 12/01/2016 3:33 PM CDT [facility] ALT 24 0 - 33 U/L 12/01/2016 3:33 PM CDT [facility] GLOBULIN 4.5(H) 2.3 - 3.6 g/dL 12/01/2016 3:33 PM CDT [facility] A/G RATIO 0.9(L) 1.0 - 2.0 12/01/2016 3:33 PM CDT [facility] ANION GAP 16 8 - 20 12/01/2016 3:33 PM CDT [facility] EGFR NON-AFR. AMER. >60 >60 mL/min/1.7 '2 12/01/2016 3:33 PM CDT [facility] EGFR AFR. AMER. >60 >60 mL/min/1.7 '2 12/01/2016 3:33 PM CDT [facility] Comment: NOTE: eGFR is not calculated for patients <18 years of age. This is an estimated GFR (CKD EPI) and should not be used for calculating drug doses. 12/01/2016 3:06 PM CDT 12/01/2016 3:14 PM CDT us Generic Conversion Md [facility] Final R esult [facility] [address] [place] [address], [place] [phone] * CULTURE URINE (12/01/2016 3:06 PM CDT) SPEC DESCRIPTION URINE CLEAN CATCH 12/04/2016 2:04 PM CDT [facility] SPECIAL REQUESTS URINE CLEAN CATCH 12/04/2016 2:04 PM CDT [facility] CULTURE RESULT POLYMICROBIAL GROWTH CONSISTENT WITH NORMAL GENITAL YESENIA. ?? SUSCEPTIBILITIES NOT ROUTINELY PERFORMED. 12/03/2016 11:20 AM CDT [facility] URINE SPECIMEN OBTAINED BY CLEAN CATCH PROCEDURE / Unknown 12/01/2016 3:06 PM CDT 12/01/2016 3:28 PM CDT us Generic Conversion Md [facility] MICROBIOLOGY - GENERAL ORDERABLES Final Result [facility] [address] [place] [address], * (ABNORMAL) URINALYSIS WI REFLEX TO CULTURE (12/01/2016 3:06 PM CDT) SOURCE (FLUID) URINE CLEAN CATCH 12/01/2016 2:46 PM CDT [facility] COLOR (U) YELLOW 12/01/2016 3:28 PM CDT [facility] TRANSPARENCY CLOUDY 12/01/2016 3:28 PM CDT [facility] SPECIFIC GRAVITY (U) 1.018 1.001 - 1.030 12/01/2016 3:28 PM CDT [facility] U PH 5.0 5.0 - 9.0 12/01/2016 3:28 PM CDT [facility] LEUKOCYTES (U) LARGE(A) NEGATIVE 12/01/2016 3:28 PM CDT [facility] NITRITES NEGATIVE NEGATIVE 12/01/2016 3:28 PM CDT [facility] PROTEIN (U) NEGATIVE <30 MG/DL 12/01/2016 3:28 PM CDT [facility] URINE GLUCOSE NEGATIVE NEGATIVE MG/DL 12/01/2016 3:28 PM CDT [facility] KETONES MG/DL (U) NEGATIVE NEGATIVE MG/DL 12/01/2016 3:28 PM CDT [facility] UROBILINOGEN NEGATIVE NEGATIVE MG/DL 12/01/2016 3:28 PM CDT [facility] BILIRUBIN (U) NEGATIVE NEGATIVE MG/DL 12/01/2016 3:28 PM CDT [facility] BLOOD (U) SMALL(A) NEGATIVE 12/01/2016 3:28 PM CDT [facility] CULTURE & SENSITIVITY INDICATED? SPECIMEN SETUP FOR CULTURE 12/01/2016 3:28 PM CDT [facility] SQUAMOUS EPITHELIALS MANY /LPF 12/01/2016 3:28 PM CDT [facility] MUCUS RARE /LPF 12/01/2016 3:28 PM CDT [facility] WBC/HPF 44(H) <6 /HPF 12/01/2016 3:28 PM CDT [facility] RBC/HPF 3 <6 /HPF 12/01/2016 3:28 PM CDT [facility] 12/01/2016 3:06 PM CDT 12/01/2016 3:14 PM CDT us Generic Conversion Md [facility] URINE ORDERABLES Final Result [facility] [address] [place] [address], * TSH W/REFLEX (SNS) (12/01/2016 3:06 PM CDT) TSH 0.78 0.27 - 4.20 mIU/mL 12/01/2016 3:44 PM CDT [facility] Comment:FREE T4 NOT INDICATE D SERUM OR PLASMA SPECIMEN / Unknown 12/01/2016 3:06 PM CDT 12/01/2016 3:14 PM CDT us Generic Conversion Md [facility] Final R esult Performing Organization Address City/[facility]/ZIP Co de Phone Number [facility] [address] [place] [address], * LIPASE (12/01/2016 3:06 PM CDT) LIPASE 28 13 - 60 U/L 12/01/2016 3:33 PM CDT [facility] SERUM OR PLASMA SPECIMEN / Unknown 12/01/2016 3:06 PM CDT 12/01/2016 3:14 PM CDT us Generic Conversion Md [facility] Final R esvincent Performing Organization Address [facility] Co de Phone Number [facility] [address] [place] [address], * (ABNORMAL) CBC W/DIFF AUTOMATED (12/01/2016 3:06 PM CDT) WBC 9.0 4.8 - 10.8 x10'3/uL 12/01/2016 3:17 PM CDT [facility] RBC 4.38 4.20 - 5.40 x10'6/uL 12/01/2016 3:17 PM CDT [facility] HGB 12.6 12.0 - 16.0 G/DL 12/01/2016 3:17 PM CDT [facility] HCT 39.1 38.0 - 48.0 % 12/01/2016 3:17 PM CDT [facility] MCV 89.3 81.0 - 99.0 FL 12/01/2016 3:17 PM CDT [facility] MCH 28.8 27.0 - 31.0 PG 12/01/2016 3:17 PM CDT [facility] MCHC 32.2 32.0 - 36.0 G/DL 12/01/2016 3:17 PM CDT [facility] RDW 13.9 11.5 - 14.5 % 12/01/2016 3:17 PM CDT [facility] PLT 302 130 - 400 x10'3/uL 12/01/2016 3:17 PM CDT [facility] MPV 9.5 9.3 - 12.2 FL 12/01/2016 3:17 PM CDT [facility] IMMATURE GRANS % 0.4 0.0 - 1.0 % 12/01/2016 3:17 PM CDT [facility] NEUTROPHILS % 59.6 43.0 - 65.0 % 12/01/2016 3:17 PM CDT [facility] LYMPHOCYTES % 28.2 20.0 - 46.0 % 12/01/2016 3:17 PM CDT [facility] MONOCYTES % 7.8 5.0 - 12.0 % 12/01/2016 3:17 PM CDT [facility] EOSINOPHILS 3.7(H) 1.0 - 3.0 % 12/01/2016 3:17 PM CDT [facility] BASOPHILS 0.3 0.0 - 1.0 % 12/01/2016 3:17 PM CDT [facility] WHOLE BLOOD SPECIMEN / Unknown 12/01/2016 3:06 PM CDT 12/01/2016 3:14 PM CDT us Generic Conversion Md [facility] Final R esult [facility] [address] [place] [address], [place] [phone] * AMYLASE (12/01/2016 3:06 PM CDT) AMYLASE S/P/B 48 28 - 100 U/L 12/01/2016 3:33 PM CDT [facility] SERUM OR PLASMA SPECIMEN / Unknown 12/01/2016 3:06 PM CDT 12/01/2016 3:14 PM CDT us Generic Conversion Md [facility] Final R esult [facility] [address] [place] [address], documented in this encounter Visit Diagnoses Diagnosis Calculus of kidney with calculus of ureter Calculus of kidney documented in this encounter Additional Health Concerns Infection Onset Date Last Indicated Resolved Time MRSA Comment:mrsa nares pos. 02/201802/03/2017 02/03/2017 09/01/19 19 8:40 AM CDT documented as of this encounter Care Teams Pattern Storage Clerk Relationship Specialty Start Date End Date Lavonne Ram MD [address] [place] [address] PCP - General FAMILY PRACTICE 04/24/16 08/19/17 Meena Bansal MD [facility]. [address] [address] [place] Hand Launderer CARDIOVASCULAR DISEASE 04/24/16 documented as of this encounter
--- OUTSIDE RECORDS SUMMARY | 2024-04-26 07:03 | XMS_ITS | Encounter Summary ---
Author Organization [facility] Address [address] [place] [address]. [place] [address] [place] [address] Care Team Providers Care Builder'S Labourer Name Role Phone Lavonne Ram MD Primary Care Provider [phone] Meena Bansal MD Unavailable [phone] Encounter Details Date Type Department Care Team (Late st Contact Info) Description 11/02/2016 Orders Only [facility] [address] [place] [address] Shanthi Mendez MD [address] [facility] [address] [place] [address] Social History Tobacco Use Types Packs/Day Years Used Date Smoking Tobacco: Never Assessed Comments Unknown Sex and Gender Information Value Date Recorded Sex Assigned at Female 09/06/2020 12:50 AM CDT Legal Sex Female 10:47 AM CDT Gender Identity Female 09/06/2020 12:50 AM CDT Sexual Orientation Straight 03/18/2018 3: 01 AM 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 MOHSEN SALAZAR MD: SHANTHI MENDEZ MD ?? Acct: [id number] ?? Admit/Service Date: 11/02/16 Discharge Date: 11/02/16 ?? : 1955 Pt Type: DIS IN ?? Sex: F Ord Site[facility] ? Exam ? 11/02/2016 @ 13:11 ?TECH: LB ?? Date/Time: ? Accession Number ?? [id number] ?CHART DOCUMENT ? INDICATIONS: ??CHEST PAIN, SHORTNESS [...] BANSAL M.D. ? D: ??11/02/2016 01:11 P ??#[id number] ?? T: ??11/09/2016 11:16 A/ecc ?? Document # [id number] ?? Report Type:CD ? cc: ?SHAILA STAFFORD JR., MD ?LAVONNE ROWAN M.D. ? Procedure Note Meena Bansal MD - 11/11/2016 MOHSEN SALAZAR MD: SHANTHI MENDEZ MD Acct: [id number] Admit/Service Date: 11/02/16 Discharge Date: 11/02/16 : 1955 Pt Type: DIS IN Sex: F Ord Site: [facility] Exam 11/02/2016 @ 13:11 TECH: LB Date/Time: Accession Number [id number] CHART DOCUMENT INDICATIONS: CHEST PAIN, SHORTNESS OF [...] 11/11/2016 05:01 P MEENA BANSAL M.D. P #[id number] A/ecc Document # [id number] Report Type:CD cc: SHAILA STAFFORD JR., MD LAVONNE ROWAN M.D. us Shanthi Mendez MD [facility] Edited Res ult - Final [facility] documented in this encounter Visit Diagnoses Not on filedocumented in this encounter Care Teams Builder'S Labourer Relationship Specialty Start Date End Date Lavonne Ram MD [address] [place] [address] PCP - General FAMILY PRACTICE 04/24/16 08/19/17 Meena Bansal MD [address] [address] [place] Ammunition Components Inspector CARDIOVASCULAR DISEASE 04/24/16 documented as of this encounter
--- OUTSIDE RECORDS SUMMARY | 2024-04-26 07:03 | XMS_ITS | Encounter Summary ---
Author Organization [facility] Address [address] [place] [address]. [place] [address] [place] [address] Care Team Providers Care Director Field Services Name Role Phone Lavonne Ram MD Primary Care Provider [phone] Meena Bansla MD Unavailable [phone] Encounter Details Date Type Department Care Team (Late st Contact Info) Description 11/01/2016 Orders Only [facility] [address] [place] [address] Nayeli Navarro, DO [address] [facility] [address] [place] [address] Social History Tobacco Use Types Packs/Day Years Used Date Smoking Tobacco: Never Assessed Comments Unknown Sex and Gender Information Value Date Recorded Sex Assigned at Female 09/06/2020 12:50 AM CDT Legal Sex Female 10:47 AM CDT Gender Identity Female 09/06/2020 12:50 AM CDT Sexual Orientation Straight 03/18/2018 3: 01 AM 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 MOHSEN SALAZAR Ordering MD: NAYELI NAVARRO DO ?? Acct: [id number] ?? Admit/Service Date: 11/02/16 Discharge Date: ?? : 1955 Pt Type: ADM IN ?? Sex: F Ord [facility] ?[address] [place] [address] ?Test Date: ?2016-11-01 ?? Pat Name: ? MOHSEN SALAZAR ?Department: CARD ?? 41 ? Room: ? D541 ?? Gender: ? Female ? Data Examination Clerk: ?? DANIEL ?? : ?1955 ? Requested By: NAYELI NAVARRO ?? Order Number: [id number] ?Reading MD: ?? Shiyam Satwani ?Measurements ?? Intervals ?[place] ? Rate: ? 96 ? P: ?14 ?? MS: ? 125 ?QRS: ?1 ?? QRSD: ? 91 ? T: ?54 ?? QT: ? 345 ? QTc: ?436 ?Interpretive Statements ?? SINUS RHYTHM WITH OCCASIONAL VENTRICULAR PREMATURE COMPLEXES ?? No previous ECG available for comparison ? Procedure Note Meena Bansal MD - 11/02/2016 MOHSEN SALAZAR MD: NAYELI NAVARRO DO Acct: [id number] Admit/Service Date: 11/02/16 Discharge Date: : 1955 Pt Type: ADM IN Sex: F Ord Site: [address] Test Date: 2016-11-01 Pat Name: MOHSEN SALAZAR Department: CARD 41 Room: [facility] Gender: Female Data Examination Clerk: DANIEL : 1955 [facility] Order Number: [id number] Reading MD: Meena Bansal Measurements Intervals [place] Rate: 96 P: 14 MS: 125 QRS: 1 QRSD: 91 T: 54 QT: 345 QTc: 436 Interpretive Statements SINUS RHYTHM WITH OCCASIONAL VENTRICULAR PREMATURE COMPLEXES No previous ECG available for comparison Nayeli Navarro DO [facility] Final Result [facility] documented in this encounter Visit Diagnoses Not on filedocumented in this encounter Care Teams Director Field Services Relationship Specialty Start Date End Date Lavonne Ram MD [address] [place] [address] PCP - General FAMILY PRACTICE 04/24/16 08/19/17 Meena Bansal MD [address] [address] [place] Pick Pack Worker CARDIOVASCULAR DISEASE 04/24/16 documented as of this encounter
--- OUTSIDE RECORDS SUMMARY | 2024-04-26 07:03 | XMS_ITS | Encounter Summary ---
Author Organization [facility] Address [address] [place] [address]. [place] [address] [place] [address] Care Team Providers Care Glue Maker Name Role Phone Meena Bansal MD Unavailable [phone] Justen Gale MD Primary Care Provider [phone] Reason for Referral * Imaging (Emergency) - Closed Specialty Diagnoses / Procedures Referred By Elyssa t Referred To Contact Procedures CT HIP LT WO CON David Don MD Referral ID Status Reason Start Date Expiration Date Visits Re quested Visits Authorized [id number] Closed 06/15/2018 07/14/2019 1 1 REACTOR OPERATOR HEAD Reason for Visit * Reason Comments Hip Pain Encounter Details Date Type Department Care Team (Late st Contact Info) Description 06/15/2018 7:40 PM MVA REACTOR OPERATOR HEAD - 06/15/2018 10:18 PM MVA REACTOR OPERATOR HEAD Emergency [facility] [place] [address] David Don MD Hip Pain Discharge Disposition: [...] Sexual Orientation Straight 03/18/2018 3: 01 AM MVA REACTOR OPERATOR HEAD documented as of this encounter Last Filed Vital Signs Vital Sign Reading Time Taken Comments Blood Pressure 95/62 06/15/2018 9:58 PM MVA REACTOR OPERATOR HEAD Pulse 97 06/15/2018 9:58 PM MVA REACTOR OPERATOR HEAD Temperature 36.8 ??C (98.2 ??F) 06/15/2018 7:38 PM CS T Respiratory Rate 20 06/15/2018 9:58 PM MVA REACTOR OPERATOR HEAD Oxygen Saturation 94% 06/15/2018 9:58 PM MVA REACTOR OPERATOR HEAD Inhaled Oxygen Concentration - - Weight 130.2 kg (287 lb) 06/15/2018 7:38 PM MVA REACTOR OPERATOR HEAD Height 154.9 cm (5' 1 ) 06/15/2018 7:38 PM MVA REACTOR OPERATOR HEAD Body Mass Index 54.23 06/15/2018 7:38 PM MVA REACTOR OPERATOR HEAD documented in this encounter Discharge Instructions * Attachments The following attachments cannot be sent through Care Everywhere. * Hip Pain ([place]) * Sacroiliac Joint Pain Discharge Instructions ([place]) documented in this encounter Medications [...] symptoms persisted. Patient had no further questions. REACTOR OPERATOR HEAD * David Don MD - 06/15/2018 8:43 [...] no recent injury, states difficulty walking, taking [place] at home with little relief, no other [...] LT WO CON Final Result by User, [id number] (06/15 2145) EXAMINATION: CT LEFT HIP WITHOUT [...] HIP LT 2V Final Result by User, [id number] (06/15 2025) EXAMINATION: X-RAY LEFT HIP 2 [...] Data Unavailable David Don MD 06/16/18 0118 REACTOR OPERATOR HEAD * HUMAIRA Sandoval - 06/15/2018 7:49 PM CST [place] EMERGENCY DEPARTMENT ENCOUNTER Medical Screening Examination [...] David Don MD at 06/16/2018 1:00 AM MVA REACTOR OPERATOR HEAD REACTOR OPERATOR HEAD REACTOR OPERATOR HEAD * Vamshi Avila RN - 06/15/2018 7:39 PM CST Pt Ambulatory with a limp to the ED complaining of left hip pain that has been getting worse since a fall 3 weeks ago. Was seen at [place] that day and cleared, pt states pain is much worse and is having difficulty using leg. Denies numbness tingling distally. REACTOR OPERATOR HEAD documented in this encounter Plan of Treatment Not on file documented as of this encounter Procedures Procedure Name Priority Date/Time Associated Diagnosis Comments CT HIP LT WO CON STAT 06/15/2018 9:29 PM MVA REACTOR OPERATOR HEAD XR HIP LT 2V STAT 06/15/2018 8:18 PM MVA REACTOR OPERATOR HEAD documented in this encounter Results * CT HIP LT WO CON (06/15/2018 9:29 PM MVA REACTOR OPERATOR HEAD) Anatomical Region Laterality Modality Hip Computed Tomogra phy 06/15/2018 9:42 PM MVA REACTOR OPERATOR HEAD Narrative 06/15/2018 9:46 PM MVA REACTOR OPERATOR HEAD EXAMINATION: CT LEFT HIP WITHOUT CONTRAST COMPARISON: [...] XR HIP LT 2V (06/15/2018 8:18 PM MVA REACTOR OPERATOR HEAD) Anatomical Region Laterality Modality Hip Radiographic Lizeth ging 06/15/2018 8:23 PM MVA REACTOR OPERATOR HEAD Narrative 06/15/2018 8:26 PM MVA REACTOR OPERATOR HEAD EXAMINATION: X-RAY LEFT HIP 2 VIEWS EXAM [...] Ariza MD, 06/15/2018 8:23 PM Sarah Walker YOUTH CAREER SPECIALIST GENERAL IMAGING Final Re sult documented in [...] over 15 seconds. Given 06/15/2018 8:54 PM MVA REACTOR OPERATOR HEAD 15 mg Other morphine injection 4 mg 4 mg, Intramuscular, Once, 1 dose, On Mon06/15/18 at 2044 Given 06/15/2018 8:54 PM MVA REACTOR OPERATOR HEAD 4 mg Other ondansetron (ZOFRAN-ODT) disintegrating tablet 4 mg 4 mg, Oral, Once, 1 dose, On Mon06/15/18 at 1999 Given 06/15/2018 8:04 PM MVA REACTOR OPERATOR HEAD 4 mg traMADol (ULTRAM) tablet 50 mg 50 mg, Oral, Once, 1 dose, On Mon06/15/18 at 1999 Given 06/15/2018 8:04 PM MVA REACTOR OPERATOR HEAD 50 mg documented in this encounter Active and Recently Administered Medications Times are shown in MVA REACTOR OPERATOR HEAD. Scheduled Medication Order 06/13/2018 06/14/2018 06/15/2018 ketorolac [...] as of this encounter Care Teams Glue Maker Relationship Specialty Start Date End Date Justen Gale MD [address] [place], [place] [id number] PCP - General FAMILY PRACTICE 08/20/17 Meena Bansal MD [address] [place], [place] [id number] José Luis Respiratory Coordinator CARDIOVASCULAR DISEASE 04/24/16 documented as of this encounter
--- OUTSIDE RECORDS SUMMARY | 2024-04-26 07:34 | XMS_ITS | Clinical Summary ---
Author Organization [facility] Address [address] [place] [address] Phone Care Team Providers Care General Science Teacher Name Role Phone Justen Gale MD Primary Care Provider [phone] David Roberts APRN, EKG MONITOR TECH Unavailable [phone] Annel Rod MD Unavailable Allergies Active Allergy [...] long-term current use of insulin ([facility]) Diagnosis: Diabetes Type 2 Blood testing frequency: [...] Blood Gluc Sensor (FreeStyle Eileen 2 Sensor) [facility] APPLY 1 SENSOR AND WEAR FOR 14 DAYS TO CHECK BLOOD SUGAR 6 Each 1 4 Active albuterol 108 (90 Base) MCG/ACT Aerosol Solution take 2 Puffs by inhalation. 1 Active gabapentin (NEURONTIN) 300 MG Capsule Take 300 mg by mouth. 4 Active Continuous Glucose Sensor (FreeStyle Eileen 2 Sensor) [facility] APPLY 1 SENSOR AND WEAR FOR 14 DAYS TO CHECK BLOOD SUGAR 6 Each 1 4 Active HYDROcodone-ac etaminophen (NORCO) 10-325 MG Tablet Take 1 Tablet by mouth. 4 Active insulin glargine (Lantus SoloStar) 100 UNIT/ML Solution Pen-injector 40 Units by Subcutaneous route nightly. 15 mL 4 Active Multiple Vitamins-[place] als (WOMENS MULTI PO) Take by mouth. [...] Continuous Glucose Sensor (FreeStyle Eileen 2 Sensor) [facility] 1 Each by Does not apply route every 14 days. Change sensor every 14 days. E11.42, insulin dependent 6 Each 1 5 Active Continuous Blood Gluc Sensor (FreeStyle Eileen 2 Sensor) [facility] 1 Each by Does not apply route [...] Overview: Added automatically from request for surgery [id number] Lymphedema of left upper extremity 08/09/2016 Pulmonary embolism 08/09/2016 Overview (11/09/2017): Last Assessment & Plan: On Rivaroxaban Arthralgia of ankle 01/26/2015 Cellulitis of breast 11/11/2014 Encounters Date Type Department Care Team Description 04/23/2024 MyChart RX Renewal [facility] #2 [place] [address] Annel Rod MD Medication Renewal Declined 04/23/2024 MyChart RX Renewal [facility] #2 [place] [address] Justen Gale MD Medication Renewal Request 03/26/2024 Nurse Triage [facility] [address] [place] [address] Justen Gale MD Advice Only; Referral; Wrist Pain; Lump 03/18/2024 Nurse Triage [facility] [address] [place] [phone] Justen Gale MD Palpitations 02/21/2024 Refill [facility] #2 [place] [address] Annel Rod MD Medication Refill 01/28/2024 Nurse Triage [facility] [address] [place] [address] Justen Gale MD Fall; ED Follow-up from Last 3 Months Immunizations Immunization Administration Dates Next Due Covid-19 Vaccine, Vector-nr, Rs-ad26, Pf, 0.5 Ml ([email or web address]) 06/29/2020 Influenza Vaccine greater than 3 yrs [...] st Contact Info) Description 05/17/2024 2:45 PM WEB APPLICATIONS PROGRAMMER Office Visit [facility] - Endocr[facility]ology - [place] [address] [place] [phone] Annel Rod MD #[address] [address] Health Maintenance Due Date Last [...] CT - ABDOMEN/PELVIS 04/19/2024 1 2:00 AM WEB APPLICATIONS PROGRAMMER PAIN CONSULT 03/25/2024 12:00 AM WEB APPLICATIONS PROGRAMMER CTA GENERIC 03/18/2024 12:00 AM WEB APPLICATIONS PROGRAMMER US - LOWER EXTREMITY 03/18/2024 12:00 AM WEB APPLICATIONS PROGRAMMER PAIN CONSULT 03/05/2024 12:00 AM WEB APPLICATIONS PROGRAMMER PAIN CONSULT 02/28/2024 12:00 AM WEB APPLICATIONS PROGRAMMER PAIN CONSULT 02/13/2024 12:[address] [...] screening for human papillomavirus (HPV) PATHOLOGY CYTOLOGY GORE STITCHER Routine 07/05/2022 2:24 PM CDT Encounter for gynecological examination with abnormal finding HM COLONOSCOPY Routine 01/09/2020 AMB REFERRAL TO PODIATRY Routine 08/13/2019 POCT STOOL, OCCULT BLOOD, DIAGNOSTIC Routine 09/07/2018 1:20 PM CDT Generalized abdominal pain from Last 3 Months or Most Recently Relevant to Health Maintenance Results * CT - ABDOMEN/PELVIS (04/19/2024 12:00 AM WEB APPLICATIONS PROGRAMMER) 04/19/2024 us Provider Scan IMG CT ORDERABLES Final Result SCAN * PAIN CONSULT (03/25/2024 12:00 AM WEB APPLICATIONS PROGRAMMER) Only the most recent of4 resultswithin the time period is included. 03/25/2024 Justen Gale MD GENERIC SCAN ORDERS CONSULT F inal Result Performing Organization Address City/[facility]/ZIP Co de Phone Number SCAN * US - LOWER EXTREMITY (03/18/2024 12:00 AM WEB APPLICATIONS PROGRAMMER) 03/18/2024 us Provider Scan IMG US ORDERABLES Final Result Performing Organization Address City/[facility] de Phone Number SCAN * CTA MISCELLANEOUS (03/18/2024 12:00 AM WEB APPLICATIONS PROGRAMMER) 03/18/2024 us Provider Scan IMG CT ORDERABLES Final Result Performing Organization Address City/[facility]/ZIP Co de Phone Number SCAN * CT - UPPER EXTREMITY (02/06/2024 12:00 AM CDT) 02/06/2024 us Provider Scan IMG CT ORDERABLES Final Result Performing Organization Address City/[facility]/ZIP Co de Phone Number SCAN * XR - UPPER EXTREMITY (01/28/2024 12:00 AM CDT) 01/28/2024 us Provider Scan IMG DIAGNOSTIC ORDERABLES Final Result SCAN * CT - SPINE (01/28/2024 12:00 AM CDT) 01/28/2024 us Provider Scan IMG CT ORDERABLES Final Result Performing Organization Address City/[facility]/ZIP Co de Phone Number SCAN * CMP (COMPREHENSIVE METABOLIC PANEL) (12/04/2023 12:00 AM CDT) 12/04/2023 us Provider Scan CHEMISTRY ORDERABLES Final Resul t Performing Organization Address City/[facility]/ZIP Co de Phone Number SCAN * HEMOGLOBIN, A1C (10/02/2023 12:00 AM CDT) HGB-A1C 7.8 SCAN 10/02/2023 us Provider Scan CHEMISTRY ORDERABLES Final Resul t Performing Organization Address [facility] Co de Phone Number SCAN * PATHOLOGY CYTOLOGY GORE STITCHER (07/05/2022 2:24 PM CDT) SPECIMEN ADEQUACY A scant cellular component is noted. Scant cellularity is likely due to presence of lubricant. 07/08/2022 8:38 AM CDT [facility] DESCRIPTIVE DIAGNOSIS NEGATIVE FOR INTRAEPITHELIAL LESIONS OR MALIGNANCY. 07/08/2022 8:38 AM CDT [facility] R FINDINGS Atrophic hormonal pattern. 07/08/2022 8:38 AM CDT [facility] Automated Examination This sample was not evaluated by the automated imaging and review system (Thinprep Imaging System, [employer], [place], [place] due to technical and / or biologic factor(s). The case was screened, reviewed, and finalized by a briquetter operator and / or pathologist. 07/08/2022 8:38 AM CDT [facility] Disclaimer The PAP smear is a [...] unless clinically indicated. 07/08/2022 8:38 AM CDT [facility] Other (Cervix/Endocerv ix) Non-Phlebotomy Collection / Unknown 07/05/2022 2:24 PM CDT 07/05/2022 2:24 PM CDT us Pili Elkins CHEMICAL ANALYTICAL SAMPLER, EKG MONITOR TECH PATHOLOGY/CYTOLOGY O RDERABLES Final Result [facility] [address] [place] [address], * HUMAN PAPILLOMA VIRUS (HPV) (07/05/2022 2:24 PM CDT) HPV OTHER HIGH RISK TYPES, PCR NEGATIVE NEGATIVE 07/06/2022 2:37 PM CDT [facility] Comment: The following Other High Risk [...] 16 NEGATIVE NEGATIVE 07/06/2022 2:37 PM CDT [facility] Comment: A negative high-risk HPV result [...] 18 NEGATIVE NEGATIVE 07/06/2022 2:37 PM CDT [facility] Comment: A negative high-risk HPV result [...] OR DIAGNOSTIC SCREENING 07/06/2022 2:37 PM CDT [facility] Other Non-Phlebotomy Collection / Unknown 07/05/2022 2:24 PM CDT 07/05/2022 2:24 PM CDT Narrative [facility] - 07/06/2022 2:37 PM CDT Performed by Real-Time Polymerase Chain Reaction (PCR) on the Ronnie Vinay 4800. This assay has been validated for use with post-aliquot samples from the [employer] T5000 processor. Pili Elkins APRN, CNP LAB SEND OUTS Deann l Result [facility] [address] [place] [address], [facility] [address] [place] [address] * HM COLONOSCOPY (01/09/2020) Genaro Jensen DO PROCEDURE/MINOR SURGICAL ORDERA BLES Final Result * AMB REFERRAL TO PODIATRY (08/13/2019) Alvarez Mensah MD OUTPATIENT REFERRALS Final Res ult * POCT STOOL, OCCULT BLOOD, DIAGNOSTIC (09/07/2018 1:20 PM CDT) OCCULT BLOOD, STOOL Negative Negative, Other POC HEMOCULT CONTROL Vp Of Digital Marketing Pass 09/07/2018 1:20 PM CDT Pili Elkins APRN, CNP POINT OF CARE TESTIN G (MANUAL) Final Result from Last 3 Months or Most Recently Relevant to Health Maintenance Insurance MEDICARE C [facility] Care Teams General Science Teacher Relationship Specialty Start Date End Date Justen Gale MD #2 [facility] [address] [place] [address] PCP - General Family Medicine 10/17/17 David Roberts APRN, EKG MONITOR TECH #2 [place] [address] Nurse Practitioner Advanced Practice Nurse 01/31/22 Annel Rod MD #2 [facility] [address] [place] [address] Consulting Physician Endocrinology 07/01/22
--- OUTSIDE RECORDS SUMMARY | 2024-04-26 07:35 | XMS_ITS | Encounter Summary ---
Author Organization [facility] Address [address] [place] [address] Phone Care Team Providers Care Chemical Preparer Name Role Phone Justen Gale MD Primary Care Provider [phone] David Roberts APRN, HABITAT CONSERVATION PLANNER Unavailable [phone] Annel Rod MD Unavailable Reason for Visit * Reason Comments Medication Refill Encounter Details Date Type Department Care Team (Late st Contact Info) Description 02/21/2024 Refill [facility] [place] #2 [place] [address] Annel Rod MD #[address] [address] Medication Refill Social History Tobacco [...] st Contact Info) Description 05/17/2024 2:45 PM INVESTOR RELATIONS MANAGER Office Visit [facility] #2 [place] [address] Annel Rod MD #2 [facility] [address] [place] [address] documented as of this encounter Visit Diagnoses Not on filedocumented in this encounter Additional Health Concerns Assessment Noted Time PHQ-9 Depression Total Score: 8 01/18/20 23 2:24 PM CDT documented as of this encounter Care Teams Chemical Preparer Relationship Specialty Start Date End Date Justen Gale MD #2 [facility] [address] [place] [address] PCP - General Family Medicine 10/17/17 David Roberts, CONTACT WORKER LITHOGRAPHY, HABITAT CONSERVATION PLANNER #[address] [place] [address] Nurse Practitioner Advanced Practice Nurse 01/31/22 Annel Rod MD [address] [address] Consulting Physician Endocrinology 07/01/22 documented as of this encounter
--- OUTSIDE RECORDS SUMMARY | 2024-04-26 07:35 | XMS_ITS | Encounter Summary ---
Author Organization [facility] Address [address] [place] [address] Phone Care Team Providers Care Shear Grinder Operator Name Role Phone Justen Gale MD Primary Care Provider [phone] David Roberts APRN, CERTIFIED WELDER Unavailable [phone] Annel Rod MD Unavailable Reason for Referral * Consult, Test & Initiate Treatment (Routine) - Closed Specialty Diagnoses / Procedures Referred By Elyssa benavides Referred To Contact Diagnoses Right hand pain Justen Gale MD #[address] [address] Phone: tel: fax: [facility] [address] [place] [address] Phone: tel: fax: Referral ID Status Reason Start Date Expiration Date Visits Re quested Visits Authorized [id number] Closed 03/26/2024 1 1 Scheduling Instructions Karly is being referred to [facility] in [facility] ph# [phone] , fax # [phone] or other specialist in patient's insurance network [...] to 59.9 in adult (HCC) Thyroid nodule TER IN Reason for Visit * Reason Onset Date Comments Advice Only 03/26/2024 Referral 03/26/2024 Wrist Pain 03/26/2024 Lump 03/26/2024 Encounter Details Date Type Department Care Team (Late st Contact Info) Description 03/26/2024 Nurse Triage [facility] [address] [place] [address] Justen Gale MD #[address] [address] Advice Only; Referral; Wrist Pain; Lump Social [...] on: 03/26/2024 04:55 PM Modules accepted: Orders TER IN * Addendum Note - Ruth Neville RN - 03/26/2024 4:55 PM CSTAddended by: RUTH NEVILLE on: 03/26/2024 04:55 PM Modules accepted: Orders TER IN * Telephone Encounter - Ruth Neville RN - 03/26/2024 4:50 PM CST Situation: Patient is requesting a new referral to (speciality) ortho Background: Referral requested for right wrist/arm pain and cyst. (See note below for triage) Action: Name and location of patient's preferred specialty provider: [facility] in [facility] ph: [phone] fax: [phone] Patient been seen by this speciality in the past? No Recommendation: Referral request routed to provider for review. Patient requests alternate ortho provider due to being able get an earlier appointment. Discussed utilizing [email or web address] to: discuss if they would prefer a [email or web address] message or phone call response Patient requests both. Caller has been given the referral center information (M-F 8am-4:30pm [phone] option 7) to call to check status of referral once the order has been signed. Reason for Disposition ??? Weakness (i.e., loss of strength) of new-onset in hand or fingers ??? Swelling is painful to touch and no fever Protocols used: Wrist Pain-A-OH, Skin Lump or Localized Sjpkddqr-A-JM TER IN * Telephone Encounter - Ruth Neville RN [...] used: Wrist Pain-A-OH, Skin Lump or Localized Mhxfizmf-Y-SB TER IN * Telephone Encounter - Sonali Edmonds - 03/26/2024 4:08 PM CST Symptom: Hand or Wrist Pain - Not From Injury Outcome: Transfer to joiners supervisor queue Reason: Can't use the hand normally The caller accepted this outcome. Patient is calling because she was referred to [facility] but can't get her in until April and she is in so much pain she can't wait that long. She called around and found out she could get into [facility] in [facility] [phone] ph#, fax # [phone] end of this week or next but needs new referral Needing advice on what to do for pain until then and needing new referral placed. TER IN documented in this encounter Plan of Treatment Upcoming Encounters Date Type Department Care Team (Late st Contact Info) Description 05/17/2024 2:45 PM TWISTER IN Office Visit [facility] - [place] #[address] [place] [address] Annel Rod MD #[address] [address] Scheduled Referrals Name Type Priority Associated Diagnoses Order Schedule EXTERNAL ORTHOPEDIC REFERRAL Outpatient Referral Routine Right hand pain Expected: 03/26/2024, Expires: 03/26/2025 documented as of this encounter Visit Diagnoses Diagnosis Right hand pain- Primary Pain in limb documented in this encounter Additional Health Concerns Assessment Noted Time PHQ-9 Depression Total Score: 8 01/18/20 2:24 PM CDT documented as of this encounter Care Teams Shear Grinder Operator Relationship Specialty Start Date End Date Justen Gale MD #[address] [address] PCP - General Family Medicine 10/17/17 David Roberts APRN, CERTIFIED WELDER #[address] [place] [address] Nurse Practitioner Advanced Practice Nurse 01/31/22 Annel Rod MD #[address] [address] Consulting Physician Endocrinology 07/01/22 documented as of this encounter
--- OUTSIDE RECORDS SUMMARY | 2024-04-26 07:35 | XMS_ITS | Encounter Summary ---
Author Organization [facility] Address [address] [place] [address] Phone Care Team Providers Care Communications Engineer Name Role Phone Justen Gale MD Primary Care Provider [phone] David Roberts APRN, FOREX TRADER Unavailable [phone] Annel Rod MD Unavailable Reason for Visit * Reason Onset Date Comments Palpitations 03/18/2024 Encounter Details Date Type Department Care Team (Late st Contact Info) Description 03/18/2024 [facility] [address] [place] [address] Justen Gale MD #[address] [address] Palpitations Social History Tobacco Use Types Packs/Day [...] - Chantel MccloudNURIS - 03/18/2024 10:47 AM FIELD EDUCATION COORDINATOR SITUATION: Patient concerned for heart rate BACKGROUND: Caller contacting PCP office. [place] funny sensation in jugular vein yesterday Per [...] to drive patient to Emergency Department in [facility]. Care advice provided per triage guideline. Caller [...] lungs Protocols used: Heart Rate and Heartbeat Pkoojenae-A-EZ, Breathing Gephkxiuql-T-UO D EDUCATION COORDINATOR documented in this encounter Plan of Treatment Upcoming Encounters Date Type Department Care Team (Late st Contact Info) Description 05/17/2024 2:45 PM FIELD EDUCATION COORDINATOR Office Visit [facility] - [place] #[address] [place] [address] Annel Rod MD #[address] [address] documented as of this encounter Visit Diagnoses Not on filedocumented in this encounter Additional Health Concerns Assessment Noted Time PHQ-9 Depression Total Score: 8 01/18/20 23 2:24 PM CDT documented as of this encounter Care Teams Communications Engineer Relationship Specialty Start Date End Date Justen Gale MD #[address] [address] PCP - General Family Medicine 10/17/17 David Roberts APRN, FOREX TRADER #2 [place] [address] Nurse Practitioner Advanced Practice Nurse 01/31/22 Annel Rod MD #[address] [address] Consulting Physician Endocrinology 07/01/22 documented as of this encounter
--- OUTSIDE RECORDS SUMMARY | 2024-04-26 07:36 | XMS_ITS | Encounter Summary ---
Author Organization [facility] Address [address] [place] [address] Phone Care Team Providers Care Manager Of Revenue Name Role Phone Justen Gale MD Primary Care Provider [phone] David Roberts APRN, PRESSING MACHINE OPERATOR Unavailable [phone] Annel Rod MD Unavailable Reason for Visit * Reason Onset Date Comments Results 11/10/2023 Encounter Details Date Type Department Care Team (Late st Contact Info) Description 11/10/2023 Telephone [facility] - [place] #2 [place] [address] Annel Rod MD #[address] [address] Results Social History Tobacco Use [...] st Contact Info) Description 05/17/2024 2:45 PM FACILITIES FLIGHT CHECK PILOT Office Visit [facility] #2 [place] [address] Annel Rod MD #[address] [address] documented as of this encounter Visit Diagnoses Not on filedocumented in this encounter Additional Health Concerns Assessment Noted Time PHQ-9 Depression Total Score: 8 01/18/20 23 2:24 PM CDT documented as of this encounter Care Teams Manager Of Revenue Relationship Specialty Start Date End Date Justen Gale MD #[address] [address] PCP - General Family Medicine 10/17/17 David Roberts, TELEPHONE SALES REPRESENTATIVE, PRESSING MACHINE OPERATOR #[address] [place] [address] Nurse Practitioner Advanced Practice Nurse 01/31/22 Annel Rod MD #[address] [address] Consulting Physician Endocrinology 07/01/22 documented as of this encounter
--- OUTSIDE RECORDS SUMMARY | 2024-04-26 07:36 | XMS_ITS | Encounter Summary ---
Author Organization [facility] Address [address] [place] [address] Phone Care Team Providers Care Telegraph Editor Name Role Phone Justen Gale MD Primary Care Provider [phone] David Roberts APRN, BALER Unavailable [phone] Annel Rod MD Unavailable Encounter Details Date Type Department Care Team (Late st Contact Info) Description 11/27/2023 Telephone [facility] #2 [place] [address] Fabiola Sotomayor APRN, BALER #[address] [place] [address] Social History Tobacco Use Types [...] Info) Description 05/17/2024 2:45 PM VICE PRESIDENT TAX Office Visit [facility] End[facility] #2 [place] [address] Annel Rod MD #2 [facility] [address] [place] [address] documented as of this encounter Visit Diagnoses Not on filedocumented in this encounter Additional Health Concerns Assessment Noted Time PHQ-9 Depression Total Score: 8 01/18/20 23 2:24 PM CDT documented as of this encounter Care Teams Telegraph Editor Relationship Specialty Start Date End Date Justen Gale MD #2 [facility] [address] [place] [address] PCP - General Family Medicine 10/17/17 David Roberts APRN, NETTA #2 [place] [address] Nurse Practitioner Advanced Practice Nurse 01/31/22 Annel Rod MD #[address] [phone] Consulting Physician Endocrinology 07/01/22 documented as of this encounter
--- OUTSIDE RECORDS SUMMARY | 2024-04-26 07:36 | XMS_ITS | Encounter Summary ---
Author Organization [facility] Address [address] [place] [address] Phone Care Team Providers Care Flasher Adjuster Name Role Phone Justen Gale MD Primary Care Provider [phone] David Roberts APRN, DIGITAL ACCOUNT SUPERVISOR Unavailable [phone] Annel Rod MD Unavailable Reason for Visit * Reason Onset Date Comments Advice Only 11/21/2023 Encounter Details Date Type Department Care Team (Late st Contact Info) Description 11/21/2023 Telephone [facility] [address] [place] [address] Justen Gale MD #[address] [address] Advice Only Social History Tobacco Use Types [...] 11/21/2023 3:17 PM CDT RFC: Alejandra from [facility] is calling to state that patient is listed as being a diabteic but is not on a statin. Please call Alejandra (relationship to patient n/a) back regarding above referenced patient. Patient's Provider is Justen Gale MD . documented in this encounter Plan of Treatment Upcoming Encounters Date Type Department Care Team (Late st Contact Info) Description 05/17/2024 2:45 PM CORE MANAGER Office Visit [facility] - [place] #2 [place] [address] Annel Rod MD #[address] [address] documented as of this encounter Visit Diagnoses Not on filedocumented in this encounter Additional Health Concerns Assessment Noted Time PHQ-9 Depression Total Score: 8 01/18/20 23 2:24 PM CDT documented as of this encounter Care Teams Flasher Adjuster Relationship Specialty Start Date End Date Justen Gale MD #2 [facility] [address] [place] [address] PCP - General Family Medicine 10/17/17 David Roberts APRN, DIGITAL ACCOUNT SUPERVISOR #2 [facility] [place] [address] Nurse Practitioner Advanced Practice Nurse 01/31/22 Annel Rod MD #[address] [place] [address] Consulting Physician Endocrinology 07/01/22 documented as of this encounter
--- OUTSIDE RECORDS SUMMARY | 2024-04-26 07:36 | XMS_ITS | Encounter Summary ---
Author Organization [facility] Address [address] [place] [address] Phone Care Team Providers Care Filling And Stapling Machine Operator Name Role Phone Justen Gale MD Primary Care Provider [phone] David Roberts APRN, PATIENT ACCOUNT REPRESENTATIVE Unavailable [phone] Annel Rod MD Unavailable Reason for Visit * Reason Onset Date Comments Leg Swelling 12/19/2023 Encounter Details Date Type Department Care Team (Late st Contact Info) Description 12/19/2023 [facility] [address] [place] [address] Justen Gale MD #[address] [address] Leg Swelling Social History Tobacco Use Types [...] is below the knees and starts approximately custodial down the calves and ankle swelling that [...] st Contact Info) Description 05/17/2024 2:45 PM TIP PRINTER [facility] - [place] #2 [place] [address] Annel Rod MD #[address] [address] documented as of this encounter Visit Diagnoses Not on filedocumented in this encounter Additional Health Concerns Assessment Noted Time PHQ-9 Depression Total Score: 8 01/18/20 23 2:24 PM CDT documented as of this encounter Care Teams Filling And Stapling Machine Operator Relationship Specialty Start Date End Date Justen Gale MD #2 [facility] [address] [place] [address] PCP - General Family Medicine 10/17/17 David Roberts APRN, PATIENT ACCOUNT REPRESENTATIVE #2 [place] [address] Nurse Practitioner Advanced Practice Nurse 01/31/22 Annel Rod MD #2 [facility] [address] [place] [address] Consulting Physician Endocrinology 07/01/22 documented as of this encounter
--- OUTSIDE RECORDS SUMMARY | 2024-04-26 07:36 | XMS_ITS | Encounter Summary ---
Author Organization [facility] Address [address] [place] [address] Phone Care Team Providers Care Etl Manager Name Role Phone Justen Gale MD Primary Care Provider [phone] David Roberts APRN, SAMPLE ROOM SUPERVISOR Unavailable [phone] Annel Rod MD Unavailable Reason for Visit * Reason Comments Wrist Pain Right pain Encounter Details Date Type Department Care Team (Late st Contact Info) Description 01/17/2024 2:00 PM CDT Office Visit [facility] Family [facility] #[address] [place] [address] Justen Gale MD [address] [address] Right wrist pain (Primary Dx) Discharge Disposition: [...] taking: Reported on 01/15/2024 Tyler Smith MD [facility]. Devices [facility] Supply and instructions: 09/09/20 Yes Justen Gale MD naloxone HCl (Narcan) 4 MG/0.1ML Liquid as needed 05/13/21 Yes Tyler Smith MD nystatin [id number] UNIT/GM Powder 11/09/21 Tyler Smith MD ondansetron (Zofran) 4 MG Tablet Take 1 Tablet by mouth every 8 hours as needed for Nausea - 1st line. 11/08/23 Yes Justen Gale MD OneTouch Delica Lancets 33G [facility] 1 Lancet by Does not apply route [...] History: Procedure Laterality Date BACK SURGERY 02/16/2023 [facility]; Spinal Stmulator BREAST SURGERY CHOLECYSTECTOMY LAP,INGUINAL [...] Continuous Glucose Sensor (FreeStyle Eileen 2 Sensor) [facility] APPLY 1 SENSOR AND WEAR FOR 14 [...] 1 g by mouth 2 times daily. [facility]. Devices [facility] Supply and instructions: 1 Each 0 naloxone HCl (Narcan) 4 MG/0.1ML Liquid as needed ondansetron (Zofran) 4 MG Tablet Take 1 Tablet by mouth every 8 hours as needed for Nausea - 1st line. 15 Tablet 0 OneTouch Delica Lancets 33G [facility] 1 Lancet by Does not apply route [...] Reactions Ceftriaxone Anaphylaxis Cephalosporins Anaphylaxis Dermatological Products, [facility]. Hives and Itching SURGICAL TAPE Lorazepam Other [...] st Contact Info) Description 05/17/2024 2:45 PM PARISH WORKER Office Visit [facility] - [place] #[address] [place] [address] Annel Rod MD #2 [address] [facility] [address] [place] [address] documented as of this encounter Visit Diagnoses Diagnosis Right wrist pain- Primary Pain in joint, forearm documented in this encounter Additional Health Concerns Assessment Noted Time PHQ-9 Depression Total Score: 8 01/18/20 23 2:24 PM CDT documented as of this encounter Care Teams Etl Manager Relationship Specialty Start Date End Date Justen Gale MD #2 [place] [facility] [address] [place] [address] PCP - General Family Medicine 10/17/17 David Roberts, VIBRATOR OPERATOR, SAMPLE ROOM SUPERVISOR #2 [place] [address] Nurse Practitioner Advanced Practice Nurse 01/31/22 Annel Rod MD [facility]2 [facility] [address] [address] Consulting Physician Endocrinology 07/01/22 documented as of this encounter
--- OUTSIDE RECORDS SUMMARY | 2024-04-26 07:36 | XMS_ITS | Encounter Summary ---
Author Organization [facility] Address [address] [place] [address] Phone Care Team Providers Care Software Product Specialist Name Role Phone Justen Gale MD Primary Care Provider [phone] David Roberts APRN, ONCOLOGY SPECIALIST Unavailable [phone] Annel Rod MD Unavailable Reason for Visit * Reason Onset Date Comments Hand Pain 11/23/2023 Encounter Details Date Type Department Care Team (Late st Contact Info) Description 11/23/[address] [facility] [facility] [address] [place] [address] Justen Gale MD #[address] [address] Hand Pain Social History Tobacco Use Types [...] Dept Phone 11/23/2023 3:20 PM Lu Marte [facility] Family [facility] [phone] * Telephone Encounter - Antoni Ba - 11/23/2023 1:15 PM CDT Symptom: Bruises - From Injury Outcome: Transfer to roving tester laboratory queue Reason: Severe pain now The caller accepted this outcome documented in this encounter Plan of Treatment Upcoming Encounters Date Type Department Care Team (Late st Contact Info) Description 05/17/2024 2:45 PM CUFF MAKER Office Visit [facility] End[facility]ology [facility] #2 [place] [address] Annel Rod MD #[address] [address] documented as of this encounter Visit Diagnoses Not on filedocumented in this encounter Additional Health Concerns Assessment Noted Time PHQ-9 Depression Total Score: 8 01/18/20 23 2:24 PM CDT documented as of this encounter Care Teams Software Product Specialist Relationship Specialty Start Date End Date Justen Gale MD #[address] [address] PCP - General Family Medicine 10/17/17 David Roberts APRN, ONCOLOGY SPECIALIST #2 [place] [address] Nurse Practitioner Advanced Practice Nurse 01/31/22 Annel Rod MD #[address] [address] Consulting Physician Endocrinology 07/01/22 documented as of this encounter
--- OUTSIDE RECORDS SUMMARY | 2024-04-26 07:36 | XMS_ITS | Encounter Summary ---
Author Organization [facility] Address [address] [place] [address] Phone Care Team Providers Care Rat Trapper Name Role Phone Justen Gale MD Primary Care Provider [phone] David Roberts APRN, SVP CHIEF MARKETING OFFICER Unavailable [phone] Annel Rod MD Unavailable Reason for Visit * Radiology Services (Today) - Closed Specialty Diagnoses / Procedures Referred By Elyssa benavides Referred To Contact Radiology Diagnoses Right wrist pain Procedures XR WRIST 3 OR MORE VIEWS RIGHT XR HAND 3 OR MORE VIEWS RIGHT Justen Gale MD #[address] [address] Phone: tel: fax: Referral ID Status Reason Start Date Expiration Date Visits Re quested Visits Authorized [id number] Closed 01/17/2024 1 1 Encounter Details Date Type Department Care Team (Latest Contact Info) Description 01/17/2024 2:26 PM CDT - 01/17/2024 11:59 PM CDT Hospital Encounter [facility] Diagnostic Radiology [address] [place] [address] Justen Gale MD #[address] [address] Discharge Disposition: Discharged to home or Selfcare [...] complication, without long-term current use of insulin ([facility]) Diagnosis: Diabetes Type 2 Blood testing frequency: [...] st Contact Info) Description 05/17/2024 2:45 PM CLOTHING PRESSER Office Visit [facility] - Endocrinology - [place] #2 [place] [address] Annel Rod MD #[address] [address] documented as of this encounter Procedures Procedure Name Priority Date/Time Associated Diagnosis Comments XR WRIST 3 OR MORE VIEWS RIGHT Today 01/17/2024 2:47 PM CDT Right wrist pain documented in this encounter Results * XR WRIST 3 OR MORE VIEWS RIGHT (01/17/2024 2:47 PM CDT) Anatomical Region Laterality Modality UPPER EXTREMITY, wrist Right Digital R adiography 01/18/2024 1:34 PM CDT Impressions 01/18/2024 1:36 PM CDT [...] PM T: ??01/18/2024 1:34 PM Report ID: [id number] Reading Location: [id number] Procedure Note Olinda Wells MD - 01/18/2024 [...] 01/18/2024 1:34 PM - Electronically signed by Oilnda Bernal M.D. FT: FT Report ID: [id number] Reading Location: [id number] IMPRESSION: Mild osteoarthritis of the right wrist [...] documented as of this encounter Care Teams Rat Trapper Relationship Specialty Start Date End Date Justen Gale MD #[address] [address] PCP - General Family Medicine 10/17/17 David Roberts APRN, SVP CHIEF MARKETING OFFICER #2 [place] [address] Nurse Practitioner Advanced Practice Nurse 01/31/22 Annel Rod MD #[address] [address] Consulting Physician Endocrinology 07/01/22 documented as of this encounter
--- OUTSIDE RECORDS SUMMARY | 2024-04-26 07:36 | XMS_ITS | Encounter Summary ---
Author Organization [facility] Address [address] [place] [address] Phone Care Team Providers Care Staffing Analyst Name Role Phone Justen Gale MD Primary Care Provider [phone] David Roberts APRN, TOP CUTTER Unavailable [phone] Annel Rod MD Unavailable Reason for Visit * Reason Onset Date Comments Medication Management 12/16/2023 Advice Only 12/16/2023 Encounter Details Date Type Department Care Team (Late st Contact Info) Description 12/16/2023 Telephone [facility] Central Call Center [address] [place] [address] Justen Gale MD #[address] [address] Medication Management; Advice Only Social History Tobacco [...] for her. Per patient Phone number is [phone]. This RN called phone number provided and the recording gaveanother number ([phone]) for after hour urgent needs. Patient was [...] Contact Info) Description 05/17/2024 2:45 PM SENIOR RESIDENT CARE DIRECTOR Office Visit [facility] - Endocrinology [facility] #2 [place] [address] Annel Rod MD #2 [facility] [address] [place] [address] documented as of this encounter Visit Diagnoses Not on filedocumented in this encounter Additional Health Concerns Assessment Noted Time PHQ-9 Depression Total Score: 8 01/18/20 23 2:24 PM CDT documented as of this encounter Care Teams Staffing Analyst Relationship Specialty Start Date End Date Justen Gale MD #2 [facility] [address] [place] [address] PCP - General Family Medicine 10/17/17 David Roberts APRN, TOP CUTTER #2 [place] [address] Nurse Practitioner Advanced Practice Nurse 01/31/22 Annel Rod MD #[address] [phone] Consulting Physician Endocrinology 07/01/22 documented as of this encounter
--- OUTSIDE RECORDS SUMMARY | 2024-04-26 07:36 | XMS_ITS | Encounter Summary ---
Author Organization [facility] Address [address] [place] [address] Phone Care Team Providers Care Highway Safety Engineer Name Role Phone Justen Gale MD Primary Care Provider [phone] David Roberts APRN, BUILDING SERVICEMAN Unavailable [phone] Annel Rod MD Unavailable Reason for Referral * Consult, Test & Initiate Treatment (Less Than 4 Weeks) - Canceled Specialty Diagnoses / Procedures Referred By Contkristina t Referred To Contact Diagnoses Right wrist pain Justen Gale MD #[address] [address] Phone: tel: fax: Referral ID Status Reason Start Date Expiration Date V isits Requested Visits Authorized [id number] Canceled 01/19/2024 1 1 Scheduling Instructions Karly [...] 01/19/2024 Telephone [facility] - Family [facility] #2 [place] [address] Justen Gale MD #[address] [address] Social History Tobacco Use Types Packs/Day Years [...] st Contact Info) Description 05/17/2024 2:45 PM EMPLOYEE HEALTH NURSE Office Visit [facility] Endocr[facility]ology - [place] #2 [place] [address] Annel Rod MD #[address] [address] Scheduled Referrals Name Type Priority Associated Diagnoses [...] documented as of this encounter Care Teams Highway Safety Engineer Relationship Specialty Start Date End Date Justen Gale MD #[address] [address] PCP - General Family Medicine 10/17/17 David Roberts, 911 TELECOMMUNICATOR, BUILDING SERVICEMAN #2 [place] [address] Nurse Practitioner Advanced Practice Nurse 01/31/22 Annel Rod MD #[address] [address] Consulting Physician Endocrinology 07/01/22 documented as of this encounter
--- OUTSIDE RECORDS SUMMARY | 2024-04-26 07:36 | XMS_ITS | Encounter Summary ---
Author Organization [facility] Address [address] [place] [address] Phone Care Team Providers Care Risk Investigator Name Role Phone Justen Gale MD Primary Care Provider [phone] David Roberts APRN, RADIOLOGIC TECHNOLOGIST Unavailable [phone] Annel Rod MD Unavailable Encounter Details Date Type Department Care Team (Late st Contact Info) Description 11/13/2023 Telephone [facility] Family Medicine [facility] #2 [place] [address] Justen Gale MD #[address] [address] Social History Tobacco Use Types Packs/Day Years [...] st Contact Info) Description 05/17/2024 2:45 PM PHOTO PRINTER Office Visit [facility] - Endocr[facility]ology - [place] #2 [place] [address] Annel Rod MD #[address] [address] documented as of this encounter Visit Diagnoses Not on filedocumented in this encounter Additional Health Concerns Assessment Noted Time PHQ-9 Depression Total Score: 8 01/18/20 23 2:24 PM CDT documented as of this encounter Care Teams Risk Investigator Relationship Specialty Start Date End Date Justen Gale MD #[address] [address] PCP - General Family Medicine 10/17/17 David Roberts APRN, RADIOLOGIC TECHNOLOGIST #2 [place] [address] Nurse Practitioner Advanced Practice Nurse 01/31/22 Annel Rod MD #[address] [address] Consulting Physician Endocrinology 07/01/22 documented as of this encounter
--- OUTSIDE RECORDS SUMMARY | 2024-04-26 07:36 | XMS_ITS | Encounter Summary ---
Author Organization [facility] Address [address] [place] [address] Phone Care Team Providers Care [employer] Assistant Manager Name Role Phone Justen Gale MD Primary Care Provider [phone] David Roberts APRN, AUDIO/VIDEO TECHNICIAN Unavailable [phone] Annel Rod MD Unavailable Reason for Visit * Reason Onset Date Comments Hand Swelling 11/17/2023 Encounter Details Date Type Department Care Team (Late st Contact Info) Description 11/17/2023 [facility] [address] [place] [address] Justen Gale MD #[address] [address] Hand Swelling Social History Tobacco Use Types [...] and fingers; pitting edema) Protocols used: Hand Tqopgmur-X-OH documented in this encounter Plan of Treatment Upcoming Encounters Date Type Department Care Team (Late st Contact Info) Description 05/17/2024 2:45 PM COMMUNITY PHARMACIST Office Visit [facility] - [facility]ocr[facility]ology - [place] #[address] [place] [address] Annel Rod MD #[address] [phone] documented as of this encounter Visit Diagnoses Not on filedocumented in this encounter Additional Health Concerns Assessment Noted Time PHQ-9 Depression Total Score: 8 01/18/20 23 2:24 PM CDT documented as of this encounter Care Teams [employer] Assistant Manager Relationship Specialty Start Date End Date Justen Gale MD #2 [facility] [address] [place] [address] PCP - General Family Medicine 10/17/17 David Roberts APRN, AUDIO/VIDEO TECHNICIAN #2 [place] [address] Nurse Practitioner Advanced Practice Nurse 01/31/22 Annel Rod MD #2 [facility] [address] [place] [address] Consulting Physician Endocrinology 07/01/22 documented as of this encounter
--- OUTSIDE RECORDS SUMMARY | 2024-04-26 07:36 | XMS_ITS | Encounter Summary ---
Author Organization [facility] Address [address] [place] [address] Phone Care Team Providers Care Phthalic Acid Purifier Name Role Phone Gerardo Gale MD Primary Care Provider [phone] David Roberts APRN, STORE RECEIVING SPECIALIST Unavailable [phone] Annel Rod MD Unavailable Reason for Referral * Consult, Test & Initiate Treatment (Less Than 2 Weeks) - Authorized Specialty Diagnoses / Procedures Referred By Contkristina t Referred To Contact Orthopaedic Surgery Diagnoses Right hand pain Gerardo Gale MD #[address] [address] Phone: tel: fax: [facility] [address] [place] [address] Phone: tel: fax: Referral ID Status Reason Start Date Expiration Date V isits Requested Visits Authorized [id number] Authorized 01/24/2024 4 4 Scheduling Instructions Karly [...] times daily., Disp: , Rfl: Misc. Devices [facility], Supply and instructions:, [...] Triage [facility] Central Call Center [address] [place] [address] Gerardo Gale MD #[address] [address] information Social History Tobacco Use Types Packs/Day [...] st Contact Info) Description 05/17/2024 2:45 PM JEWEL SUPERVISOR Office Visit [facility] - Endocrinology [facility] #2 [place] [address] Annel Rod MD #[address] [address] Scheduled Referrals Name Type Priority Associated Diagnoses [...] documented as of this encounter Care Teams Phthalic Acid Purifier Relationship Specialty Start Date End Date Gerardo Gale MD #2 [facility] [address] [place] [address] PCP - General Family Medicine 10/17/17 David Roberts APRN, NETTA #2 [place] [address] Nurse Practitioner Advanced Practice Nurse 01/31/22 Annel Rod MD #[address] [address] Consulting Physician Endocrinology 07/01/22 documented as of this encounter
--- OUTSIDE RECORDS SUMMARY | 2024-04-26 07:36 | XMS_ITS | Encounter Summary ---
Author Organization [facility] [employer] Care Team Providers Care Aviation Project Manager Name Role Phone Justen Gale MD Primary Care Provider [phone] David Roberts APRN, [facility] Unavailable [phone] Annel Rod MD Unavailable Encounter Details Date [...] st Contact Info) Description 05/17/2024 2:45 PM LIBRARY PAGE Office Visit [facility] Group - Endocrinology [facility] #2 [place] [address] Annel Rod MD #[address] [address] documented as of this encounter Visit Diagnoses Not on filedocumented in this encounter Additional Health Concerns Assessment Noted Time PHQ-9 Depression Total Score: 8 01/18/20 23 2:24 PM CDT documented as of this encounter Care Teams Aviation Project Manager Relationship Specialty Start Date End Date Justen Gale MD #[address] [address] PCP - General Family Medicine 10/17/17 David Roberts APRN, NETTA #2 [place] [address] Nurse Practitioner Advanced Practice Nurse 01/31/22 Annel Rod MD #[address] [address] Consulting Physician Endocrinology 07/01/22 documented as of this encounter
--- OUTSIDE RECORDS SUMMARY | 2024-04-26 07:36 | XMS_ITS | Encounter Summary ---
Author Organization [facility] Address [address] [place] [address] Phone Care Team Providers Care Commercial Loan Analyst Name Role Phone Justen Gale MD Primary Care Provider David Roberts APRN, INSPECTOR PURCHASED PARTS Unavailable [phone] Annel Rod MD Unavailable Reason for Visit * Reason Onset Date Comments Wrist Pain 01/15/2024 Encounter Details Date Type Department Care Team (Late st Contact Info) Description 01/15/2024 [facility] [address] [place] [address] Justen Gale MD #[address] [address] Wrist Pain Social History Tobacco Use Types [...] just wait to see orthopedics? May send Darwin Labhart in response. Thank you! Care advice provided per triage guideline. Caller verbalized understanding. Discussed utilizing Receptos to: discuss if they would prefer a Receptos message or phone call response - See [...] Wrist Pain-A-[place] * Telephone Encounter - Hannah Ferrell - 01/15/2024 10:47 AM CDT Symptoms: Hand or Wrist Pain - Not From Injury, Arm Pain - Not From Injury Outcome: Transfer to patient account analyst queue Reason: Can't use the hand normally The caller accepted this outcome. documented in this encounter Plan of Treatment Upcoming Encounters Date Type Department Care Team (Late st Contact Info) Description 05/17/2024 2:45 PM HEAVY EQUIPMENT SERVICE MANAGER Office Visit [facility] - Endocrinology - [place] #[address] [place] [address] Annel Rod MD #[address] [address] documented as of this encounter Visit Diagnoses Not on filedocumented in this encounter Additional Health Concerns Assessment Noted Time PHQ-9 Depression Total Score: 8 01/18/20 23 2:24 PM CDT documented as of this encounter Care Teams Commercial Loan Analyst Relationship Specialty Start Date End Date Justen Gale MD #[address] [address] PCP - General Family Medicine 10/17/17 David Roberts, LIQUOR STORE MANAGER, INSPECTOR PURCHASED PARTS #2 [place] [address] Nurse Practitioner Advanced Practice Nurse 01/31/22 Annel Rod MD #[address] [address] Consulting Physician Endocrinology 07/01/22 documented as of this encounter
--- OUTSIDE RECORDS SUMMARY | 2024-04-26 07:36 | XMS_ITS | Encounter Summary ---
Author Organization [facility] Address [address] [place] [address] Phone Care Team Providers Care Commercial Installer Name Role Phone Justen Gale MD Primary Care Provider [phone] David Roberts APRN, WHEEL ADJUSTER Unavailable [phone] Annel Rod MD Unavailable Reason for Visit * Reason Onset Date Comments Advice Only 12/04/2023 Breathing Problem 12/04/2023 Encounter Details Date Type Department Care Team (Late st Contact Info) Description 12/04/2023 Nurse Triage [facility] Call Center [address] [place] [address] Justen Gale MD #[address] [address] Advice Only; Breathing Problem Social History Tobacco [...] or worse than normal Protocols used: Breathing Ytytvtrvga-K-HT * Telephone Encounter - Sarina Adams - 12/04/2023 1:19 PM CDT Symptoms: COVID-19 Suspected, Urination Pain, High Blood Sugar - Caller Reports Outcome: Warm transfer to an emergent RN NOW! Reason: Known blood sugar above 300 The caller accepted this outcome documented in this encounter Plan of Treatment Upcoming Encounters Date Type Department Care Team (Late st Contact Info) Description 05/17/2024 2:45 PM SLIDE FASTENER CHAIN ASSEMBLER Office Visit [facility] - Endocr[facility] #2 [place] [address] Annel Rod MD #[address] [address] documented as of this encounter Visit Diagnoses Not on filedocumented in this encounter Additional Health Concerns Assessment Noted Time PHQ-9 Depression Total Score: 8 01/18/20 23 2:24 PM CDT documented as of this encounter Care Teams Commercial Installer Relationship Specialty Start Date End Date Justen Gale MD #[address] [address] PCP - General Family Medicine 10/17/17 David Roberts APRN, WHEEL ADJUSTER #2 [place] [address] Nurse Practitioner Advanced Practice Nurse 01/31/22 Annel Rod MD #[address] [address] Consulting Physician Endocrinology 07/01/22 documented as of this encounter
--- OUTSIDE RECORDS SUMMARY | 2024-04-26 07:36 | XMS_ITS | Encounter Summary ---
Author Organization [facility] Address [address] [place] [address] Phone Care Team Providers Care Technical Healthcare Consultant Name Role Phone Justen Gale MD Primary Care Provider David Roberts APRN, CARDIAC REHAB NURSE Unavailable [phone] Annel Rod MD Unavailable Reason for Visit * Reason Onset Date Comments High Blood Sugar 12/05/2023 Encounter Details Date Type Department Care Team (Late st Contact Info) Description 12/05/2023 [facility] [address] [place] [address] Justen Gale MD #[address] [address] High Blood Sugar Social History Tobacco Use [...] understanding. Patient stated she will go to [facility]. Advised patient to call back with any [...] st Contact Info) Description 05/17/2024 2:45 PM ORIENTATION AND MOBILITY SPECIALIST Office Visit [facility] - [facility] #[address] [place] [address] Annel Rod MD #[address] [facility] [facility] [address] [place] [address] documented as of this encounter Visit Diagnoses Not on filedocumented in this encounter Additional Health Concerns Assessment Noted Time PHQ-9 Depression Total Score: 8 01/18/20 23 2:24 PM CDT documented as of this encounter Care Teams Technical Healthcare Consultant Relationship Specialty Start Date End Date Justen Gale MD #[address] [facility] [facility] [address] [place] [address] PCP - General Family Medicine 10/17/17 David Roberts APRN, CARDIAC REHAB NURSE #[address] [place] [address] Nurse Practitioner Advanced Practice Nurse 01/31/22 Annel Rod MD #[address] [address] Consulting Physician Endocrinology 07/01/22 documented as of this encounter
--- OUTSIDE RECORDS SUMMARY | 2024-04-26 07:36 | XMS_ITS | Encounter Summary ---
Author Organization [facility] Address [address] [place] [address] Phone Care Team Providers Care Spanish Translator Name Role Phone Justen Gale MD Primary Care Provider [phone] David Roberts APRN, LAMINATING MACHINE OPERATOR HELPER Unavailable [phone] Annel Rod MD Unavailable Reason for Visit * Reason Onset Date Comments Appointment 01/15/2024 Encounter Details Date Type Department Care Team (Late st Contact Info) Description 01/15/2024 Telephone [facility] #2 [place] [address] Justen Gale MD #[address] [address] Appointment Social History Tobacco Use Types Packs/Day [...] Dept Phone 01/17/2024 2:00 PM Justen Gale [facility] - Family Medicine [facility] [phone] * Telephone Encounter - Justen Gale MD - 01/15/2024 11:33 AM CDT Okay to use 1400. Do not take my Monday block however or block documented in this encounter Plan of Treatment Upcoming Encounters Date Type Department Care Team (Late st Contact Info) Description 05/17/2024 2:45 PM FILTER PRESS PUMPER Office Visit [facility] - Endocrinology [facility] #2 [place] [address] Annel Rod MD #2 [facility] [address] [place] [address] documented as of this encounter Visit Diagnoses Not on filedocumented in this encounter Additional Health Concerns Assessment Noted Time PHQ-9 Depression Total Score: 8 01/18/20 2:24 PM CDT documented as of this encounter Care Teams Spanish Translator Relationship Specialty Start Date End Date Justen Gale MD #2 [facility] [address] [place] [address] PCP - General Family Medicine 10/17/17 David Roberts APRN, LAMINATING MACHINE OPERATOR HELPER #[address] [place] [address] Nurse Practitioner Advanced Practice Nurse 01/31/22 Annel Rod MD #[address] [address] Consulting Physician Endocrinology 07/01/22 documented as of this encounter
--- OUTSIDE RECORDS SUMMARY | 2024-04-26 07:36 | XMS_ITS | Encounter Summary ---
Author Organization [facility] Address [address] [place] [address] Phone Care Team Providers Care Material Assistant Name Role Phone Justen Gale MD Primary Care Provider [phone] David Roberts APRN, LENS POLISHER HAND Unavailable [phone] Annel Rod MD Unavailable Reason for Visit * Reason Onset Date Comments Fall 01/28/2024 ED Follow-up 01/28/2024 Encounter Details Date Type Department Care Team (Late st Contact Info) Description 01/28/2024 Nurse Triage [facility] [address] [place] [address] Justen Gale MD #[address] [address] Fall; ED Follow-up Social History Tobacco Use [...] Visit for Injury Follow-up Call-A-AH, Falls and Cvnyiao-M-KE * Telephone Encounter - Leah Garcia RN - 01/30/2024 9:47 PM CDT SITUATION: Emergency Department follow up BACKGROUND: Caller contacting PCP office. Patient states she did go to Emergency Department at [facility] and after waiting approximately 7 hours she [...] 10/01-10/31 Fever: Denies fever. Treatment / Response: Babbitt 10-325 milligram last dose taken on 01/30/24 approximately 0 and patient takes this regularly for her chronic back pain with some relief. Medication, allergies, and pharmacy reviewed. RECOMMENDATION: Care advice given and patient agrees to be seen in Emergency Department for evaluation at this time. Discussed utilizing [employer] to: schedule appointments - See care advice [...] Visit for Injury Follow-up Call-A-AH, Falls and Rkwdpbu-Q-FG * Telephone Encounter - Jennifer Husain RN [...] st Contact Info) Description 05/17/2024 2:45 PM AIRCRAFT SKIN BURNISHER Office Visit [facility] - Endocrinology [facility] #2 [place] [address] Annel Rod MD #[address] [address] documented as of this encounter Visit Diagnoses Not on filedocumented in this encounter Additional Health Concerns Assessment Noted Time PHQ-9 Depression Total Score: 8 01/18/20 23 2:24 PM CDT documented as of this encounter Care Teams Material Assistant Relationship Specialty Start Date End Date Justen Gale MD #2 [facility] [address] [place] [address] PCP - General Family Medicine 10/17/17 David Roberts APRN, NETTA #2 [facility] [address] Nurse Practitioner Advanced Practice Nurse 01/31/22 Annel Rod MD #[address] [address] Consulting Physician Endocrinology 07/01/22 documented as of this encounter
--- OUTSIDE RECORDS SUMMARY | 2024-04-26 07:36 | XMS_ITS | Encounter Summary ---
Author Organization [facility] Address [address] [place] [address] Phone Care Team Providers Care Sanding Machine Buffer Name Role Phone Justen Gale MD Primary Care Provider [phone] David Roberts APRN, DIRECTOR FUNDRAISING Unavailable [phone] Annel Rod MD Unavailable Reason for Visit * Reason Onset Date Comments Results 11/13/2023 Encounter Details Date Type Department Care Team (Late st Contact Info) Description 11/13/2023 Telephone [facility] #2 [facility] [place] [address] Justen Gale MD #[address] [address] Results Social History Tobacco Use Types Packs/Day [...] st Contact Info) Description 05/17/2024 2:45 PM CORK PRESSING MACHINE OPERATOR Office Visit [facility] - Endocrinology [facility] #2 [place] [address] Annel Rod MD #[address] [address] documented as of this encounter Visit Diagnoses Not on filedocumented in this encounter Additional Health Concerns Assessment Noted Time PHQ-9 Depression Total Score: 8 01/18/20 23 2:24 PM CDT documented as of this encounter Care Teams Sanding Machine Buffer Relationship Specialty Start Date End Date Justen Gale MD #2 [facility] [address] [place] [address] PCP - General Family Medicine 10/17/17 David Roberts APRN, DIRECTOR FUNDRAISING #2 [place] [address] Nurse Practitioner Advanced Practice Nurse 01/31/22 Annel Rod MD #[address] [address] Consulting Physician Endocrinology 07/01/22 documented as of this encounter
--- OUTSIDE RECORDS SUMMARY | 2024-04-26 07:36 | XMS_ITS | Encounter Summary ---
Author Organization [facility] Address [address] [place] [address] Phone Care Team Providers Care Animal Ride Manager Name Role Phone Justen Gale MD Primary Care Provider [phone] David Roberts APRN, DYNAMICS AX CONSULTANT Unavailable [phone] Annel Rod MD Unavailable Reason for Visit * Reason Onset Date Comments Results 01/17/2024 Encounter Details Date Type Department Care Team (Late st Contact Info) Description 01/17/2024 Telephone [facility] [address] [place] [address] Justen Gale MD #[address] [address] Results Social History Tobacco Use Types Packs/Day [...] Contact Info) Description 05/17/2024 2:45 PM HEEL SHAVER Office Visit [facility] - Endocrinology [facility] #2 [place] [address] Annel Rod MD #2 [facility] [address] [place] [address] documented as of this encounter Visit Diagnoses Not on filedocumented in this encounter Additional Health Concerns Assessment Noted Time PHQ-9 Depression Total Score: 8 01/18/20 23 2:24 PM CDT documented as of this encounter Care Teams Animal Ride Manager Relationship Specialty Start Date End Date Justen Gale MD #2 [facility] [address] [place] [address] PCP - General Family Medicine 10/17/17 David Roberts, STOPPER MAKER HELPER, DYNAMICS AX CONSULTANT #2 [place] [address] Nurse Practitioner Advanced Practice Nurse 01/31/22 Annel Rod MD [address] [address] Consulting Physician Endocrinology 07/01/22 documented as of this encounter
--- OUTSIDE RECORDS SUMMARY | 2024-04-26 07:36 | XMS_ITS | Encounter Summary ---
Author Organization [facility] Address [address] [place] [address] Phone Care Team Providers Care Agency Sales Director Name Role Phone Justen Gale MD Primary Care Provider [phone] David Roberts APRN, VARNISH MAKER Unavailable [phone] Annel Rod MD Unavailable Reason for Referral * Consult, Test & Initiate Treatment (Routine) - Canceled Specialty Diagnoses / Procedures Referred By Elyssa t Referred To Contact Diagnoses Nausea and vomiting, unspecified vomiting type Justen Gale MD #[address] [address] Phone: tel: fax: [facility] - Gastroenterology [facility] #2 [place] [address] Phone: tel: fax: Referral ID Status Reason Start Date Expiration Date V isits Requested Visits Authorized [id number] Canceled 11/16/2023 1 1 Scheduling Instructions Karly is being referred for n/v Please contact patient for scheduling questions or concerns. Encounter Details Date Type Department Care Team ([facility] Contact Info) Description 11/16/2023 Telephone [facility] - Family Medicine - [place] #[address] [place] [address] Justen Gale MD #[address] [address] Social History Tobacco Use Types Packs/Day Years [...] (Late Contact Info) Description 05/17/2024 2:45 PM CURRICULUM DEVELOPER Office Visit [facility] - Endocrinology - [place] #[address] [place] [address] Annle Rod MD #[address] [address] Scheduled Referrals Name Type Priority Associated Diagnoses [...] documented as of this encounter Care Teams Agency Sales Director Relationship Specialty Start Date End Date Justen Gale MD #2 [facility] [address] [place] [address] PCP - General Family Medicine 10/17/17 David Roberts APRN, NETTA #2 [place] [address] Nurse Practitioner Advanced Practice Nurse 01/31/22 Annel Rod MD #2 [facility] [address] [place] [address] Consulting Physician Endocrinology 07/01/22 documented as of this encounter
--- OUTSIDE RECORDS SUMMARY | 2024-04-26 07:37 | XMS_ITS | Encounter Summary ---
Author Organization [facility] Address [address] [place] [address] Phone Care Team Providers Care Try Out Person Name Role Phone Justen Gale MD Primary Care Provider [phone] David Roberts APRN, COUNTER HAND Unavailable [phone] Annel Rod MD Unavailable Encounter Details Date Type Department Care Team (Late st Contact Info) Description 11/08/2023 1:[address] [facility] #2 [facility] [address] [place] [address] [facility] Lab/Ancillary Nausea and vomiting, unspecified vomiting [...] draw per order of dr gale dated [id number]. Specimen collected from right antecubital without incident. [facility] documented in this encounter Plan of Treatment Upcoming Encounters Date Type Department Care Team (Late st Contact Info) Description 05/17/2024 2:45 PM VICE PRESIDENT AND PORTFOLIO MANAGER Office Visit [facility] - Endocrinology - [place] #2 [place] [address] Annel Rod MD #[address] [phone] documented as of this encounter Procedures Procedure [...] 517 mg/dL 11/08/2023 9:42 PM CDT [facility] Blood Venipuncture / Unknown 11/08/2023 1:12 PM CDT 11/08/2023 1:12 PM CDT us Justen Gale MD IMMUNOLOGY ORDERABLES Final R esult Performing Organization Address City/[facility]/ZIP Co de Phone Number [facility] [address] [place] [address], [place] * GLIADIN IGA ANTIBODY - CELIAC (11/08/2023 1:12 PM CDT) DEAMIDATED GLIADIN IGA 0.4 <15.0 U/mL 11/08/2023 10:07 PM CDT [facility] Blood Venipuncture / Unknown 11/08/2023 1:12 PM CDT 11/08/2023 1:12 PM CDT Narrative [facility] - 11/08/2023 10:07 PM CDT Antibody testing was performed by multiplex flow immunoassay on the BioPlex platform. us Justen Gale MD IMMUNOLOGY ORDERABLES Final R esult Performing Organization Address [facility]/ZIP Co de Phone Number [facility] [address] [place] [address], [place] * TISSUE TRANSGLUTAMINASE IGA - CELIAC (11/08/2023 1:12 PM CDT) TTG IGA <0.5 <15.0 U/mL 11/08/2023 10:07 PM CDT [facility] Blood Venipuncture / Unknown 11/08/2023 1:12 PM CDT 11/08/2023 1:12 PM CDT Narrative [facility] - 11/08/2023 10:07 PM CDT Antibody testing was performed by multiplex flow immunoassay on the BioPlex platform. us Justen Gale MD IMMUNOLOGY ORDERABLES Final R esult Performing Organization Address City/[facility]/ZIP Co de Phone Number [facility] [address] [place] [address], [place] documented in this encounter Visit Diagnoses Diagnosis Nausea and vomiting, unspecified vomiting type documented in this encounter Additional Health Concerns Assessment Noted Time PHQ-9 Depression Total Score: 8 01/18/20 23 2:24 PM CDT documented as of this encounter Care Teams Try Out Person Relationship Specialty Start Date End Date Justen Gale MD #2 [facility] [address] [place] [address] PCP - General Family Medicine 10/17/17 David Roberts, PLATE MOLDER, COUNTER HAND #2 [place] [address] Nurse Practitioner Advanced Practice Nurse 01/31/22 Annel Rod MD #[address] [address] Consulting Physician Endocrinology 07/01/22 documented as of this encounter
--- OUTSIDE RECORDS SUMMARY | 2024-04-26 07:37 | XMS_ITS | Encounter Summary ---
Author Organization [facility] Address [address] [place] [address] Phone Care Team Providers Care Dukey Rider Name Role Phone Justen Gale MD Primary Care Provider [phone] David Roberts APRN, PROGRESSIVE ASSEMBLER AND FITTER Unavailable [phone] Annel Rod MD Unavailable Encounter Details Date Type Department Care Team (Late st Contact Info) Description 11/08/2023 Telephone [facility] - Family Medicine [facility] #2 [place] [address] Justen Gale MD #[address] [address] Social History Tobacco Use Types Packs/Day Years [...] st Contact Info) Description 05/17/2024 2:45 PM FUEL YARD OPERATOR Office Visit [facility] - Endocrinology [facility] #2 [place] [address] Annel Rod MD #[address] [address] documented as of this encounter Visit Diagnoses Not on filedocumented in this encounter Additional Health Concerns Assessment Noted Time PHQ-9 Depression Total Score: 8 01/18/20 23 2:24 PM CDT documented as of this encounter Care Teams Dukey Rider Relationship Specialty Start Date End Date Justen Gale MD #2 [facility] [address] [place] [address] PCP - General Family Medicine 10/17/17 David Roberts APRN, PROGRESSIVE ASSEMBLER AND FITTER #2 [place] [address] Nurse Practitioner Advanced Practice Nurse 01/31/22 Annel Rod MD #[address] [address] Consulting Physician Endocrinology 07/01/22 documented as of this encounter
--- OUTSIDE RECORDS SUMMARY | 2024-04-26 07:37 | XMS_ITS | Encounter Summary ---
Author Organization [facility] [employer] Care Team Providers Care Stock Shipper Name Role Phone Justen Gale MD Primary Care Provider [phone] David Roberts APRN, [facility] Unavailable [phone] Annel Rod MD Unavailable Encounter Details Date [...] st Contact Info) Description 05/17/2024 2:45 PM CAUSTIC PLANT WORKER Office Visit [facility] - Endocrinology [facility] #2 [place] [address] Annel Rod MD #[address] [address] documented as of this encounter Visit Diagnoses Not on filedocumented in this encounter Additional Health Concerns Assessment Noted Time PHQ-9 Depression Total Score: 8 01/18/20 23 2:24 PM CDT documented as of this encounter Care Teams Stock Shipper Relationship Specialty Start Date End Date Justen Gale MD #[address] [address] PCP - General Family Medicine 10/17/17 David Roberts APRN, NETTA #2 [place] [address] Nurse Practitioner Advanced Practice Nurse 01/31/22 Annel Rod MD #[address] [address] Consulting Physician Endocrinology 07/01/22 documented as of this encounter
--- OUTSIDE RECORDS SUMMARY | 2024-04-26 07:37 | XMS_ITS | Encounter Summary ---
Author Organization [facility] Address [address] [place] [address] Phone Care Team Providers Care Contract Post Office Clerk Name Role Phone Justen Gale MD Primary Care Provider [phone] David Roberts APRN, THEATRE PROFESSOR Unavailable [phone] Annel Rod MD Unavailable Reason for Visit * Reason Onset Date Comments Results 11/09/2023 Encounter Details Date Type Department Care Team (Late st Contact Info) Description 11/09/2023 Telephone [facility] [address] [place] [address] Justen Gale MD #[address] [address] Results Social History Tobacco Use Types Packs/Day [...] this time. Recommendation: Please advise and send Fieldoohart message. * Telephone Encounter - Balbina Anderson [...] st Contact Info) Description 05/17/2024 2:45 PM WEARING APPAREL FOLDER [facility] Visit [facility] - Endocrin[facility] #2 [place] [address] Annel Rod MD #[address] [address] Scheduled Orders Name Type Priority Associated Diagnoses [...] as of this encounter Care Teams Contract Post Office Clerk Relationship Specialty Start Date End Date Justen Gale MD #[address] [address] PCP - General Family Medicine 10/17/17 David Roberts, LOADER OPERATOR, THEATRE PROFESSOR #2 [place] [address] Nurse Practitioner Advanced Practice Nurse 01/31/22 Annel Rod MD #[address] [address] Consulting Physician Endocrinology 07/01/22 documented as of this encounter
--- OUTSIDE RECORDS SUMMARY | 2024-04-26 07:38 | XMS_ITS | Encounter Summary ---
Author Organization [facility] Address [address] [place] [address] Phone Care Team Providers Care Logistics Technician Name Role Phone Justen Gale MD Primary Care Provider [phone] David Roberts APRN, PAN WASHER HAND Unavailable [phone] Annel Rod MD Unavailable Encounter Details Date Type Department Care Team (Late st Contact Info) Description 10/11/2023 Telephone [facility] Ultrasound 1 [place] [address] Annel Rod MD #[address] [address] Social History Tobacco Use Types [...] st Contact Info) Description 05/17/2024 2:45 PM WRECKING MECHANIC Office Visit [facility] - Endocrinology - [place] #2 [place] [address] Annel Rod MD #[address] [address] documented as of this encounter Visit Diagnoses Not on filedocumented in this encounter Additional Health Concerns Assessment Noted Time PHQ-9 Depression Total Score: 8 01/18/20 23 2:24 PM CDT documented as of this encounter Care Teams Logistics Technician Relationship Specialty Start Date End Date Justen Gale MD #[address] [address] PCP - General Family Medicine 10/17/17 David Roberts APRN, PAN WASHER HAND #2 [place] [address] Nurse Practitioner Advanced Practice Nurse 01/31/22 Annel Rod MD #[address] [address] Consulting Physician Endocrinology 07/01/22 documented as of this encounter
--- OUTSIDE RECORDS SUMMARY | 2024-04-26 07:38 | XMS_ITS | Encounter Summary ---
Author Organization [facility] Address [address] [place] [address] Phone Care Team Providers Care Boilermaker Central Steam Plant Name Role Phone Justen Gale MD Primary Care Provider [phone] David Roberts APRN, AIR CARGO SPECIALIST SUPERVISOR Unavailable [phone] Annel Rod MD Unavailable Reason for Visit * Reason Onset Date Comments Low Blood Sugar 10/12/2023 Shortness of Breath 10/12/2023 Encounter Details Date Type Department Care Team (Late st Contact Info) Description 10/12/2023 [facility] [address] [place] [address] Justen Gale MD #[address] [address] Low Blood Sugar; Shortness of Breath Social [...] vein thrombosis, pulmonary embolism) Protocols used: Breathing Veowdezoia-O-JD documented in this encounter Plan of Treatment Upcoming Encounters Date Type Department Care Team (Late st Contact Info) Description 05/17/2024 2:45 PM ELECTRIC MOTOR ASSEMBLER Office Visit [facility] - Endocrinology - [place] #[address] [place] [address] Annel Rod MD #[address] [phone] documented as of this encounter Visit Diagnoses Not on filedocumented in this encounter Additional Health Concerns Assessment Noted Time PHQ-9 Depression Total Score: 8 01/18/20 23 2:24 PM CDT documented as of this encounter Care Teams Boilermaker Central Steam Plant Relationship Specialty Start Date End Date Justen Gale MD #2 [facility] [address] [place] [address] PCP - General Family Medicine 10/17/17 David Roberts, HARNESS INSPECTOR, AIR CARGO SPECIALIST SUPERVISOR #2 [place] [address] Nurse Practitioner Advanced Practice Nurse 01/31/22 Annel Rod MD #2 [facility] [address] [place] [address] Consulting Physician Endocrinology 07/01/22 documented as of this encounter
--- OUTSIDE RECORDS SUMMARY | 2024-04-26 07:38 | XMS_ITS | Encounter Summary ---
Author Organization [facility] Address [address] [place] [address] Phone Care Team Providers Care Manager Environmental Health And Safety Name Role Phone Justen Gale MD Primary Care Provider [phone] David Roberts APRN, SOFTWARE TEST DEVELOPER Unavailable [phone] Annel Rod MD Unavailable Encounter Details Date Type Department Care Team (Late st Contact Info) Description 11/01/2023 Telephone [facility] [address] [place] [address] Justen Gale MD #[address] [address] Social History Tobacco Use Types Packs/Day Years [...] Phone 11/02/2023 10:00 AM [email or web address]; [email or web address] [facility] Ultrasound [phone] 11/08/2023 1:00 PM Justen Gale [facility] Family Medicine - [place] [phone] 11/22/2023 1:45 PM Annel Rod [facility] Endocrinology - [place] [phone] 12/06/2023 1:30 PM Justen Gale [facility] Family Medicine - [place] [phone] Assessment: na Recommendation: na documented in this encounter Plan of Treatment Upcoming Encounters Date Type Department Care Team (Late st Contact Info) Description 05/17/2024 2:45 PM TECHNICAL OPERATIONS SPECIALIST Office Visit [facility] - Endocrinology - [place] #2 [place] [address] Annel Rod MD #2 [facility] [address] [place] [address] documented as of this encounter Visit Diagnoses Not on filedocumented in this encounter Additional Health Concerns Assessment Noted Time PHQ-9 Depression Total Score: 8 01/18/20 23 2:24 PM CDT documented as of this encounter Care Teams Manager Environmental Health And Safety Relationship Specialty Start Date End Date Justen Gale MD #2 [facility] [address] [place] [address] PCP - General Family Medicine 10/17/17 David Roberts APRN, NETTA #2 [facility] [place] [address] Nurse Practitioner Advanced Practice Nurse 01/31/22 Annel Rod MD #[address] [address] Consulting Physician Endocrinology 07/01/22 documented as of this encounter
--- OUTSIDE RECORDS SUMMARY | 2024-04-26 07:38 | XMS_ITS | Encounter Summary ---
Author Organization [facility] Address [address] [place] [address] Phone Care Team Providers Care Waxer Name Role Phone Justen Gale MD Primary Care Provider [phone] David Roberts APRN, EVENT SPECIALIST Unavailable [phone] Annel Rod MD Unavailable Reason for Visit * Reason Onset Date Comments Head Injury 10/23/2023 Encounter Details Date Type Department Care Team (Late st Contact Info) Description 10/23/2023 Nurse [facility] Call [facility] [address] [place] [address] Justen Gale MD #[address] [address] Head Injury Social History Tobacco Use Types [...] st Contact Info) Description 05/17/2024 2:45 PM COLLATOR OPERATOR Office Visit [facility] - Endocrinology - [place] #2 [place] [address] Annel Rod MD #2 [facility] [address] [place] [address] documented as of this encounter Visit Diagnoses Not on filedocumented in this encounter Additional Health Concerns Assessment Noted Time PHQ-9 Depression Total Score: 8 01/18/20 23 2:24 PM CDT documented as of this encounter Care Teams Waxer Relationship Specialty Start Date End Date Justen Gale MD #2 [facility] [address] [place] [address] PCP - General Family Medicine 10/17/17 David Roberts APRN, NETTA #2 [place] [address] Nurse Practitioner Advanced Practice Nurse 01/31/22 Annel Rod MD #2 [facility] [address] [place] [address] Consulting Physician Endocrinology 07/01/22 documented as of this encounter
--- OUTSIDE RECORDS SUMMARY | 2024-04-26 07:38 | XMS_ITS | Encounter Summary ---
Author Organization [facility] Address [address] [place] [address] Phone Care Team Providers Care Bill Of Lading Clerk Name Role Phone Justen Gale MD Primary Care Provider [phone] David Roberts APRN, CANDY COUNTER CLERK Unavailable [phone] Annel Rod MD Unavailable Reason for Referral * Consult, Test & Initiate Treatment (Less Than 2 Weeks) - Canceled Specialty Diagnoses / Procedures Referred By Contkristina t Referred To Contact General Surgery Diagnoses Nausea and vomiting, unspecified vomiting type Justen Gale MD #2 [facility] [address] [place] [address] Phone: tel: fax: [facility] Medical Group - General Surgery [facility] #2 [facility] [address] [place] [address] Phone: tel: fax: Referral ID Status Reason Start Date Expiration Date V isits Requested Visits Authorized [id number] Canceled 11/08/2023 1 1 Scheduling Instructions Karly is being referred for persistent n/v/epigastric pain. Please contact patient for scheduling questions or concerns. Reason for Visit * Reason Comments ED Follow-up Encounter Details Date Type Department Care Team (Late st Contact Info) Description 11/08/2023 1:00 PM CDT Office Visit [facility] - Family [facility] #[address] [place] [address] Justen Gale MD #[address] [address] Nausea and vomiting, unspecified vomiting type (Primary [...] mouth every 6 hours as needed. Yes Tyelr Smith MD exemestane (AROMASIN) 25 MG Tablet [...] mg by mouth. Yes Tyler Smith MD [facility]. Devices [facility] Supply and instructions: 09/09/20 Yes Justen Gale MD naloxone HCl (Narcan) 4 MG/0.1ML Liquid as needed 05/13/21 Yes Tyler Smith MD nystatin 218248 UNIT/GM Powder 11/09/21 Yes Tyler Smith MD ondansetron (Zofran) 4 MG Tablet Take 1 Tablet by mouth every 8 hours as needed for Nausea - 1st line. 04/13/23 Yes Pili Elkins APRN, CANDY COUNTER CLERK OneTouch Delica Lancets 33G [facility] 1 Lancet by Does not apply route [...] History: Procedure Laterality Date BACK SURGERY 02/16/2023 [facility]; Spinal Stmulator BREAST SURGERY CHOLECYSTECTOMY LAP,INGUINAL HERNIA [...] Take 500 mg by mouth. Misc. Devices [facility] Supply and instructions: 1 Each 0 naloxone HCl (Narcan) 4 MG/0.1ML Liquid as needed nystatin 148675 UNIT/GM Powder ondansetron (Zofran) 4 MG Tablet Take 1 Tablet by mouth every 8 hours as needed for Nausea - 1st line. 15 Tablet 0 OneTouch Delica Lancets 33G [facility] 1 Lancet by Does not apply route [...] Reactions Ceftriaxone Anaphylaxis Cephalosporins Anaphylaxis Dermatological Products, [facility]. Hives and Itching SURGICAL TAPE Lorazepam Other [...] Contact Info) Description 05/17/2024 2:45 PM CUSTOMER SUPPLY CHAIN ANALYST Office Visit [facility] - Endocrinology - [place] #[address] [place] [address] Annel Rod MD #[address] [phone] Scheduled Referrals Name Type Priority Associated Diagnoses [...] documented as of this encounter Care Teams Bill Of Lading Clerk Relationship Specialty Start Date End Date Justen Gale MD #2 [facility] [address] [place] [address] PCP - General Family Medicine 10/17/17 David Roberts, FINANCIAL OFFICER, CANDY COUNTER CLERK #2 [place] [address] Nurse Practitioner Advanced Practice Nurse 01/31/22 Annel Rod MD #2 [facility] [address] [place] [address] Consulting Physician Endocrinology 07/01/22 documented as of this encounter
--- OUTSIDE RECORDS SUMMARY | 2024-04-26 07:38 | XMS_ITS | Encounter Summary ---
Author Organization [facility] Address [address] [place] [address] Phone Care Team Providers Care Vessel Scrapper Name Role Phone Justen Gale MD Primary Care Provider [phone] David Roberts APRN, PARTNER MANAGEMENT CONSULTANT Unavailable [phone] Annle Rod MD Unavailable Reason for Visit * Auth/Cert (Routine) Specialty Diagnoses / Procedures Referred By Elyssa benavides Referred To Contact Diagnoses THYROID NODULE Procedures PRE / POST CARE FOR PROCEDURAL AREA Referral ID Status Reason Start Date Expiration Date Visits Re quested Visits Authorized [id number] 1 1 Encounter Details Date Type Department Care Team (Late st Contact Info) Description 11/02/2023 10:00 AM CDT - 11/02/2023 10:30 AM CDT [facility] [address] [place] [phone] Provider, Not On File [place] PRE / POST CARE FOR PROCEDURAL AREA-LEFT THYROID BIOPSY Surgery Details Date/Time Status Location OR Service Patient Class Case Class Case Type Trauma Case? 11/02/2023 10:00 AM Posted [facility] INVASIVE IMAGING [facility] IR 1 [facility] Ambulatory Surgery Elective [...] as needed 05/13/2021 OneTouch Delica Lancets 33G [facility] 1 Lancet by Does [...] Take 500 mg by mouth. 4 nystatin 079016 UNIT/GM Powder 11/09/2021 4 ondansetron (Zofran) 4 [...] st Contact Info) Description 05/17/2024 2:45 PM BRIM STRETCHER Office Visit [facility] - Endocrinology [facility] #2 [place] [address] Annel Rod MD #[address] [address] documented as of this encounter Procedures Procedure Name Priority Date/Time Associated Diagnosis Comments PRE / POST CARE FOR PROCEDURAL AREA 11/02/2023 10:00 AM CDT THYROID NODULE documented in this encounter Visit Diagnoses Not on filedocumented in this encounter Additional Health Concerns Assessment Noted Time PHQ-9 Depression Total Score: 8 01/18/20 23 2:24 PM CDT documented as of this encounter Care Teams Vessel Scrapper Relationship Specialty Start Date End Date Justen Gale MD #2 [facility] [address] [place] [address] PCP - General Family Medicine 10/17/17 David Roberts, HAT BRIM CURLER, PARTNER MANAGEMENT CONSULTANT #2 [place] [address] Nurse Practitioner Advanced Practice Nurse 01/31/22 Annel Rod MD #[address] [address] Consulting Physician Endocrinology 07/01/22 documented as of this encounter
--- OUTSIDE RECORDS SUMMARY | 2024-04-26 07:38 | XMS_ITS | Encounter Summary ---
Author Organization [facility] Address [address] [place] [address] Phone Care Team Providers Care Political Cartoonist Name Role Phone Justen Gale MD Primary Care Provider [phone] David Roberts APRN, SOCK LINING STITCHER Unavailable [phone] Annel Rod MD Unavailable Reason for Visit * Reason Onset Date Comments Advice Only 10/22/2023 Encounter Details Date Type Department Care Team (Late st Contact Info) Description 10/22/2023 Telephone [facility] [address] [place] [address] Justen Gale MD #[address] [address] Advice Only Social History Tobacco Use Types [...] st Contact Info) Description 05/17/2024 2:45 PM BLOOD COLLECTOR Office Visit [facility] - Endocrinology [facility] #2 [place] [address] Annel Rod MD #2 [facility] [address] [place] [address] documented as of this encounter Visit Diagnoses Not on filedocumented in this encounter Additional Health Concerns Assessment Noted Time PHQ-9 Depression Total Score: 8 01/18/20 23 2:24 PM CDT documented as of this encounter Care Teams Political Cartoonist Relationship Specialty Start Date End Date Justen Gale MD #2 [facility] [address] [place] [address] PCP - General Family Medicine 10/17/17 RobertsDavid evans APRN, SOCK LINING STITCHER #2 [facility] [address] Nurse Practitioner Advanced Practice Nurse 01/31/22 Annel Rod MD #[address] [phone] Consulting Physician Endocrinology 07/01/22 documented as of this encounter
--- OUTSIDE RECORDS SUMMARY | 2024-04-26 07:38 | XMS_ITS | Encounter Summary ---
Author Organization [facility] Address [address] [place] [address] Phone Care Team Providers Care Tailer In Name Role Phone Justen Gale MD Primary Care Provider [phone] David Robrets APRN, SUPERVISOR PROCESS TESTING Unavailable [phone] Annel Rod MD Unavailable Reason for Visit * Auth/Cert (Routine) Specialty Diagnoses / Procedures Referred By Elyssa benavides Referred To Contact Diagnoses THYROID NODULE Procedures PRE / POST CARE FOR PROCEDURAL AREA Referral ID Status Reason Start Date Expiration Date Visits Re quested Visits Authorized [id number] 1 1 Encounter Details Date Type Department Care Team (Latest Contact Info) Description 11/02/2023 9:36 AM CDT - 11/02/2023 11:15 AM CDT Hospital Encounter [facility] Preop/Pacu II 1 [place] [address] Provider, Not On File Annel Hernandez MD #[address] [phone] Discharge Disposition: Discharged to home or Selfcare [...] Take 500 mg by mouth. 4 nystatin 300206 UNIT/GM Powder 11/09/2021 4 ondansetron (Zofran) 4 [...] st Contact Info) Description 05/17/2024 2:45 PM HARD ROCK MINER Office Visit [facility] #2 [place] [address] Annel Rod MD #2 [facility] [address] [place] [address] documented as of this encounter Procedures Procedure Name Priority Date/Time Associated Diagnosis Comments PRE / POST CARE FOR PROCEDURAL AREA 11/02/2023 10:00 AM CDT THYROID NODULE documented in this encounter Visit Diagnoses Not on filedocumented in this encounter Additional Health Concerns Assessment Noted Time PHQ-9 Depression Total Score: 8 01/18/20 23 2:24 PM CDT documented as of this encounter Care Teams Tailer In Relationship Specialty Start Date End Date Justen Gale MD #2 [facility] [address] [place] [address] PCP - General Family Medicine 10/17/17 David Roberts APRN, NETTA #2 [place] [address] Nurse Practitioner Advanced Practice Nurse 01/31/22 Annel Rod MD #[address] [address] Consulting Physician Endocrinology 07/01/22 documented as of this encounter
--- OUTSIDE RECORDS SUMMARY | 2024-04-26 07:38 | XMS_ITS | Encounter Summary ---
Author Organization [facility] Address [address] [place] [address] Phone Care Team Providers Care Bingo Clerk Name Role Phone Justen Gale MD Primary Care Provider [phone] David Roberts APRN, BLADE ALIGNER Unavailable [phone] Annel Rod MD Unavailable Reason for Referral * Consult, Test & Initiate Treatment (Routine) - Closed Specialty Diagnoses / Procedures Referred By Elyssa benavides Referred To Contact Diagnoses Screening exam for skin cancer Dannielle Berg, PAC #2 [place] [address] Phone: tel: fax: Provider, Not On File [place] Referral ID Status Reason Start Date Expiration Date Visits Re quested Visits Authorized [id number] Closed 11/01/2023 1 1 Scheduling Instructions Karly is being referred to [facility] Dermatology in [place] or other specialist in patient's insurance network [...] on 10/06/2023), Disp: , Rfl: Misc. Devices [facility] Supply and instructions:, Disp: 1 Each, Rfl: 0 naloxone HCl (Narcan) 4 MG/0.1ML Liquid, as needed, Disp: , Rfl: nystatin 617975 UNIT/GM Powder, , Disp: , Rfl: ondansetron [...] Telephone [facility] Call [facility] [address] [place] [address] Justen Gale MD #[address] [address] Referral (dermatology) Social History Tobacco Use Types [...] see? If yes include name/location Distinctive dermatology [facility]. Has the patient been seen by this speciality in the past? No Appointment Dec 27, 2023. Recommendation: Request routed to provider for review Caller has been given the referral center information ( M-F 8am-4:30pm [phone] option 7 ) to call to check status of referral once the order has been signed. documented in this encounter Plan of Treatment Upcoming Encounters Date Type Department Care Team (Late st Contact Info) Description 05/17/2024 2:45 PM REST ROOM MAID Office Visit [facility] - Endocrinology - [place] #[address] [place] [address] Annel Rod MD #[address] [phone] Scheduled Referrals Name Type Priority Associated Diagnoses [...] documented as of this encounter Care Teams Bingo Clerk Relationship Specialty Start Date End Date Justen Gale MD #2 [facility] [address] [place] [address] PCP - General Family Medicine 10/17/17 David Roberts APRN, BLADE ALIGNER #2 [place] [address] Nurse Practitioner Advanced Practice Nurse 01/31/22 Annel Rod MD #2 [facility] [address] [place] [address] Consulting Physician Endocrinology 07/01/22 documented as of this encounter
--- OUTSIDE RECORDS SUMMARY | 2024-04-26 07:38 | XMS_ITS | Encounter Summary ---
Author Organization [facility] Address [address] [place] [address] Phone Care Team Providers Care Horse Show Manager Name Role Phone Justen Gale MD Primary Care Provider [phone] David Roberts APRN, CODING ANALYST Unavailable [phone] Annel Rod MD Unavailable Reason for Referral * Radiology Services (Routine) - Closed Specialty Diagnoses / Procedures Referred By Elyssa benavides Referred To Contact Radiology Diagnoses Thyroid nodule Procedures US GUIDANCE AND THYROID BIOPSY Annel Rod MD #[address] [address] Phone: tel: fax: Referral ID Status Reason Start Date Expiration Date Visits Re quested Visits Authorized [id number] Closed 09/13/2023 1 1 Reason for Visit * Auth/Cert (Routine) Specialty Diagnoses / Procedures Referred By Elyssa benavides Referred To Contact Diagnoses THYROID NODULE Procedures PRE / POST CARE FOR PROCEDURAL AREA Referral ID Status Reason Start Date Expiration Date Visits Re quested Visits Authorized [id number] 1 1 Encounter Details Date Type Department Care Team (Latest Contact Info) Description 11/02/2023 9:41 AM CDT - 11/02/2023 11:59 PM CDT Hospital Encounter [facility] Ultrasound [address] [place] [address] Annel Rod MD #2 [address] [place] [phone] Discharge Disposition: Discharged to home or Selfcare [...] Take 500 mg by mouth. 4 nystatin 989106 UNIT/GM Powder 11/09/2021 4 ondansetron (Zofran) 4 [...] 11/02/2023 10:00 AM CDT Pt. Transported to [facility] . Procedure explained to pt. Dr. Carlton [...] st Contact Info) Description 05/17/2024 2:45 PM FURNITURE FINISHER HELPER Office Visit [facility] - Endocrinology - [place] #2 [place] [phone] Annel Rod MD #[address] [phone] documented as of this encounter Procedures Procedure Name Priority Date/Time Associated Diagnosis Comments US GUIDANCE AND THYROID BIOPSY Routine 11/02/2023 10:56 AM CDT Thyroid nodule PATHOLOGY CYTOLOGY NON-DESIZING MACHINE OPERATOR Routine 11/02/2023 10:37 AM CDT Thyroid nodule [...] AM T: ??11/02/2023 11:48 AM Report ID: [id number] Reading Location: ??[id number] THIS IS AN ELECTRONICALLY VERIFIED FINAL REPORT 11/06/2023 3:32 PM ??Addendum Electronically signed by David Carlton M.D., JR: D: ??11/06/2023 3:32 PM T: ??11/06/2023 3:32 PM Report ID: [id number] Reading Location: ??[id number] Impressions 11/02/2023 11:50 AM CDT IMPRESSION: Successful [...] AM T: ??11/02/2023 11:48 AM Report ID: [id number] Reading Location: ??[id number] Procedure Note David Carlton MD - 11/02/2023 [...] by David Carlton M.D. JR: Report ID: [id number] Reading Location: [id number] IMPRESSION: Successful ultrasound guided fine-needle aspiration of a left thyroid nodule. us Annel Rod MD [facility] [place] ORDERABLES Edited Result - Final * Pathology Cytology Non-DESIZING MACHINE OPERATOR (11/02/2023 10:37 AM CDT) Case Report Medical Cytology Report ? Case: [id number] ? Authorizing Provider: ??Annel Rod MD ? Collected: ? 11/02/2023 10:37 AM ? Ordering Location: ? [facility] ? Received: ?11/02/2023 11:03 AM ? [facility] ? Ultrasound ? Pathologist: ? Sandrine Snowden MD PhD ? Specimen: ?Thyroid, Ultrasound Guided Left Fine Needle Aspiration ? 11/03/2023 11:21 AM CDT [facility] FINAL DIAGNOSIS Thyroid, left inferior 1.6 x 1.6 x 1.2 cm, ultrasound guided fine needle aspiration: - Adequate for evaluation - Benign - Favor benign follicular nodule (see comment) 11/03/2023 11:21 AM CDT [facility] Intraoperative Consultation A. Ultrasound Guided Left Fine Needle Aspiration PATHOLOGY IMMEDIATE INTERPRETATION : Thyroid, left inferior 1.6 x 1.6 x 1.2 cm, ultrasound guided fine needle aspiration: Episode #1, Passes 1-5 - Adequate. Conveyed to Dr. Carlton by Dr. Snowden on November 02, 2023. 11/03/2023 11:21 AM CDT [facility] Comment Abundant colloid, scant bland follicular cells, no macrophages, and abundant debris. 11/03/2023 11:21 AM CDT [facility] Gross Description A. Ultrasound Guided Left [...] hours, 46 minutes. 11/03/2023 11:21 AM CDT [facility] Microscopic Description Microscopic examination was performed which supports the final diagnosis. All control tissues stained appropriately. 11/03/2023 11:21 AM CDT [facility] Tissue THYROID STRUCTURE / Unknown 11/02/2023 10:37 AM CDT 11/02/2023 11:03 AM CDT us Annel Rod MD PATHOLOGY/CYTOLOGY ORDERABLES Fi nal Result [facility] #1 [place] [address] documented in this encounter Visit Diagnoses Diagnosis [...] documented as of this encounter Care Teams Horse Show Manager Relationship Specialty Start Date End Date Justen Gale MD #2 [facility] [address] [place] [address] PCP - General Family Medicine 10/17/17 David Roberts APRN, CODING ANALYST #2 [place] [address] Nurse Practitioner Advanced Practice Nurse 01/31/22 Annel Rod MD #2 [facility] [address] [place] [address] Consulting Physician Endocrinology 07/01/22 documented as of this encounter
--- OUTSIDE RECORDS SUMMARY | 2024-04-26 07:38 | XMS_ITS | Encounter Summary ---
Author Organization [facility] [employer] Care Team Providers Care Polysomnography Technician Name Role Phone Justen Gale MD Primary Care Provider [phone] David Roberts APRN, [facility] Unavailable [phone] Annel Rod MD Unavailable Encounter Details Date [...] Contact Info) Description 05/17/2024 2:45 PM HAND II BLOCKER Office Visit [facility] Medical Group - Endocrinology [facility] #2 [place] [phone] Annel Rod MD #[address] [address] documented as of this encounter Visit Diagnoses Not on filedocumented in this encounter Additional Health Concerns Assessment Noted Time PHQ-9 Depression Total Score: 8 01/18/20 23 2:24 PM CDT documented as of this encounter Care Teams Polysomnography Technician Relationship Specialty Start Date End Date Justen Gale MD #[address] [address] PCP - General Family Medicine 10/17/17 David Roberts APRN, NETTA #2 [place] [address] Nurse Practitioner Advanced Practice Nurse 01/31/22 Annel Rod MD #[address] [address] Consulting Physician Endocrinology 07/01/22 documented as of this encounter
--- OUTSIDE RECORDS SUMMARY | 2024-04-26 07:39 | XMS_ITS | Encounter Summary ---
Author Organization [facility] Address [address] [place] [address] Phone Care Team Providers Care Cash Management Coordinator Name Role Phone Justen Gale MD Primary Care Provider [phone] David Roberts APRN, KENO WRITER Unavailable [phone] Annel Rod MD Unavailable Reason for Visit * Reason Comments Medication Refill Encounter Details Date Type Department Care Team (Late st Contact Info) Description 08/07/2023 Refill [facility] - [place] #2 [place] [address] Annel Rod MD #[address] [address] Medication Refill Social History Tobacco [...] st Contact Info) Description 05/17/2024 2:45 PM WASHER OPERATOR Office Visit [facility] - Endocrinology [facility] #2 [place] [address] Annel Rod MD #[address] [address] documented as of this encounter Visit Diagnoses Not on filedocumented in this encounter Additional Health Concerns Assessment Noted Time PHQ-9 Depression Total Score: 8 01/18/20 23 2:24 PM CDT documented as of this encounter Care Teams Cash Management Coordinator Relationship Specialty Start Date End Date Justen Gale MD #[address] [address] PCP - General Family Medicine 10/17/17 David Roberts APRN, KENO WRITER #2 [place] [address] Nurse Practitioner Advanced Practice Nurse 01/31/22 Annel Rod MD #[address] [address] Consulting Physician Endocrinology 07/01/22 documented as of this encounter
--- OUTSIDE RECORDS SUMMARY | 2024-04-26 07:39 | XMS_ITS | Encounter Summary ---
Author Organization [facility] Address [address] [place] [address] Phone Care Team Providers Care Traffic Operations Manager Name Role Phone Justen Gale MD Primary Care Provider [phone] David Roberts APRN, [facility] Unavailable [phone] Annel Rod MD Unavailable Reason for Referral * Radiology Services (Routine) - Closed Specialty Diagnoses / Procedures Referred By Elyssa benavides Referred To Contact Radiology Diagnoses Thyroid nodule Procedures US THYROID Annel Rod MD #[address] [address] Phone: tel: fax: Referral ID Status Reason Start Date Expiration Date Visits Re quested Visits Authorized [id number] Closed 05/30/2023 1 1 Reason for Visit * Radiology Services (Routine) - Closed Specialty Diagnoses / Procedures Referred By Elyssa benavides Referred To Contact Radiology Diagnoses Thyroid nodule Procedures US THYROID Annel Rod MD #[address] [address] Phone: tel: fax: Referral ID Status Reason Start Date Expiration Date Visits Re quested Visits Authorized [id number] Closed 05/30/2023 1 1 Encounter Details Date Type Department Care Team (Latest Contact Info) Description 09/08/2023 1:32 PM CDT - 09/08/2023 11:59 PM CDT Hospital Encounter [facility] Ultrasound [address] [place] [address] Annel Rod MD #[address] [phone] Discharge Disposition: Discharged to home or Selfcare [...] mg by mouth daily. 04/27/2022 4 nystatin [id number] UNIT/GM Powder 11/09/2021 4 ondansetron (Zofran) 4 [...] st Contact Info) Description 05/17/2024 2:45 PM COUNTER STITCHER Office Visit [facility] - Endocrinology [facility] #2 [place] [address] Annel Rod MD #[address] [phone] documented as of this encounter Procedures Procedure [...] PM T: ??09/11/2023 12:52 PM Report ID: [id number] Reading Location: ??[id number] Procedure Note Maykel Montano MD - 09/11/2023 [...] Maykel Montano M.D. AM: AM Report ID: [id number] Reading Location: [id number] IMPRESSION: 1. 1.1 cm TI-RADS 4 nodule [...] documented as of this encounter Care Teams Traffic Operations Manager Relationship Specialty Start Date End Date Justen Gale MD #[address] [address] PCP - General Family Medicine 10/17/17 David Roberts APRN, NETTA #2 [place], [place] [id number] Nurse Practitioner Advanced Practice Nurse 01/31/22 Annel Rod MD #[address] [address] Consulting Physician Endocrinology 07/01/22 documented as of this encounter
--- OUTSIDE RECORDS SUMMARY | 2024-04-26 07:39 | XMS_ITS | Encounter Summary ---
Author Organization [facility] Address [address] [place] [address] Phone Care Team Providers Care Traveling Construction Superintendent Name Role Phone Justen Gale MD Primary Care Provider [phone] David Roberts APRN, RISK ADVISOR Unavailable [phone] Annel Rod MD Unavailable Reason for Visit * Reason Onset Date Comments Follow-up 08/03/2023 Encounter Details Date Type Department Care Team (Late st Contact Info) Description 08/03/2023 Telephone [facility] #[address] [place] [address] Justen Gale MD [address] [address] Follow-up Social History Tobacco Use Types Packs/Day [...] st Contact Info) Description 05/17/2024 2:45 PM FITTINGS FINISHER Office Visit [facility] - Endocrinology [facility] #2 [place] [address] Annel Rod MD #2 [facility] [address] [place] [address] documented as of this encounter Visit Diagnoses Not on filedocumented in this encounter Additional Health Concerns Assessment Noted Time PHQ-9 Depression Total Score: 8 01/18/20 23 2:24 PM CDT documented as of this encounter Care Teams Traveling Construction Superintendent Relationship Specialty Start Date End Date Justen Gale MD #2 [facility] [address] [place] [address] PCP - General Family Medicine 10/17/17 David Roberts APRN, NETTA #[address] [place] [address] Nurse Practitioner Advanced Practice Nurse 01/31/22 Annel Rod MD #[address] [address] Consulting Physician Endocrinology 07/01/22 documented as of this encounter
--- OUTSIDE RECORDS SUMMARY | 2024-04-26 07:39 | XMS_ITS | Encounter Summary ---
Author Organization [facility] Address [address] [place] [address] Phone Care Team Providers Care Line Up Machine Operator Name Role Phone Justen Gale MD Primary Care Provider [phone] David Roberts APRN, STRUCTURAL WORKER Unavailable [phone] Annel Rod MD Unavailable Reason for Visit * Reason Onset Date Comments Referral 08/07/2023 Encounter Details Date Type Department Care Team (Late st Contact Info) Description 08/07/2023 Telephone [facility] [address] [place] [address] Justen Gale MD #[address] [address] Referral Social History Tobacco Use Types Packs/Day [...] External Hematology/Oncology Referral Background: Patient calling [facility] and was transferred to this feather mixer. Assessment: Patient states she had a referral [...] Contact Info) Description 05/17/2024 2:45 PM BATCH RECORDS CLERK Office Visit [facility] - Endocrinology [facility] #2 [place] [address] Annel Rod MD #2 [facility] [address] [place] [address] documented as of this encounter Visit Diagnoses Not on filedocumented in this encounter Additional Health Concerns Assessment Noted Time PHQ-9 Depression Total Score: 8 01/18/20 23 2:24 PM CDT documented as of this encounter Care Teams Line Up Machine Operator Relationship Specialty Start Date End Date Justen Gale MD #2 [facility] [address] [place] [address] PCP - General Family Medicine 10/17/17 David Roberts, IMAGING SCHEDULER, STRUCTURAL WORKER #2 [place] [address] Nurse Practitioner Advanced Practice Nurse 01/31/22 Annel Rod MD #[address] [address] Consulting Physician Endocrinology 07/01/22 documented as of this encounter
--- OUTSIDE RECORDS SUMMARY | 2024-04-26 07:39 | XMS_ITS | Encounter Summary ---
Author Organization [facility] Address [address] [place] [address] Phone Care Team Providers Care Fast Food Assistant Restaurant Manager Name Role Phone Justen Gale MD Primary Care Provider [phone] David Roberts APRN, WAX POT TENDER Unavailable [phone] Annel Rod MD Unavailable Reason for Visit * Reason Onset Date Comments Medication Refill 08/11/2023 Encounter Details Date Type Department Care Team (Late st Contact Info) Description 08/11/2023 Refill [facility] - [place] #[address] [place] [address] Annel Rod MD #[address] [address] Medication Refill Social History Tobacco [...] st Contact Info) Description 05/17/2024 2:45 PM PROBATION AGENT Office Visit [facility] - Endocrinology [facility] #2 [place] [address] Annel Rod MD #[address] [address] documented as of this encounter Visit Diagnoses Not on filedocumented in this encounter Additional Health Concerns Assessment Noted Time PHQ-9 Depression Total Score: 8 01/18/20 23 2:24 PM CDT documented as of this encounter Care Teams Fast Food Assistant Restaurant Manager Relationship Specialty Start Date End Date Justen Gale MD #[address] [address] PCP - General Family Medicine 10/17/17 David Roberts APRN, WAX POT TENDER #2 [place] [address] Nurse Practitioner Advanced Practice Nurse 01/31/22 Annel Rod MD #[address] [address] Consulting Physician Endocrinology 07/01/22 documented as of this encounter
--- OUTSIDE RECORDS SUMMARY | 2024-04-26 07:39 | XMS_ITS | Encounter Summary ---
Author Organization [facility] Address [address] [place] [address] Phone Care Team Providers Care Certified Substance Abuse Counselor Name Role Phone Justen Gale MD Primary Care Provider [phone] David Roberts APRN, MEDIA CLERK Unavailable [phone] Annel Rod MD Unavailable Reason for Visit * Reason Onset Date Comments Fatigue 09/24/2023 Encounter Details Date Type Department Care Team (Late st Contact Info) Description 09/24/2023 [facility] [address] [place] [address] Justen Gale MD #[address] [address] Fatigue Social History Tobacco Use Types Packs/Day [...] Difficulty breathing Protocols used: Weakness (Generalized) and Dqplfwq-B-OA documented in this encounter Plan of Treatment Upcoming Encounters Date Type Department Care Team (Late st Contact Info) Description 05/17/2024 2:45 PM POLITICAL SCIENCE CHAIR Office Visit [facility] End[facility]in[facility] #2 [place] [address] Annel Rod MD #2 [facility] [address] [place] [address] documented as of this encounter Visit Diagnoses Not on filedocumented in this encounter Additional Health Concerns Assessment Noted Time PHQ-9 Depression Total Score: 8 01/18/20 23 2:24 PM CDT documented as of this encounter Care Teams Certified Substance Abuse Counselor Relationship Specialty Start Date End Date Justen Gale MD #2 [facility] [address] [place] [address] PCP - General Family Medicine 10/17/17 David Roberts APRN, NETTA #2 [place] [address] Nurse Practitioner Advanced Practice Nurse 01/31/22 Annel Rod MD #[address] [address] Consulting Physician Endocrinology 07/01/22 documented as of this encounter
--- OUTSIDE RECORDS SUMMARY | 2024-04-26 07:39 | XMS_ITS | Encounter Summary ---
Author Organization [facility] Address [address] [place] [address] Phone Care Team Providers Care Community Support Specialist Name Role Phone Justen Gale MD Primary Care Provider [phone] David Roberts APRN, LINE TECHNICIAN Unavailable [phone] Annel Rod MD Unavailable Reason for Visit * Reason Onset Date Comments Dizziness 08/24/2023 Encounter Details Date Type Department Care Team (Late st Contact Info) Description 08/24/2023 [facility] [address] [place] [address] Justen Gale MD #[address] [address] Dizziness Social History Tobacco Use Types Packs/Day [...] now Per chart review, Recently admitted to [facility] 08/14/23 - 08/18/23 Diagnosis acute cystitis [...] Dept Phone 09/08/2023 2:00 PM [email or web address]; [id number] [facility] Ultrasound [phone] 09/08/2023 3:30 PM LucilaMillie balderramae [facility] Medical Group - Family Medicine - [place] [phone] 10/12/2023 3:15 PM Annel Rod [facility] Endocrinology - [place] [phone] See care advice and disposition provided, per [...] very dry mouth, very lightheaded) Protocols used: Rgnycybcn-F-ZW * Telephone Encounter - Dulce Celestin - [...] st Contact Info) Description 05/17/2024 2:45 PM INTERNATIONAL ACCOUNTING MANAGER Office Visit [facility] Medical [facility] - Endocrinology - [place] #[address] [place] [address] Annel Rod MD #[address] [address] documented as of this encounter Visit Diagnoses Not on filedocumented in this encounter Additional Health Concerns Assessment Noted Time PHQ-9 Depression Total Score: 8 01/18/20 23 2:24 PM CDT documented as of this encounter Care Teams Community Support Specialist Relationship Specialty Start Date End Date Justen Gale MD #[address] [facility] [address] [place] [address] PCP - General Family Medicine 10/17/17 David Roberts, TRUCK DRIVER HELPER, LINE TECHNICIAN #2 [place] [address] Nurse Practitioner Advanced Practice Nurse 01/31/22 Annel Rod MD #[address] [facility] [address] [place] [address] Consulting Physician Endocrinology 07/01/22 documented as of this encounter
--- OUTSIDE RECORDS SUMMARY | 2024-04-26 07:39 | XMS_ITS | Encounter Summary ---
Author Organization [facility] Address [address] [place] [address] Phone Care Team Providers Care Communications Editor Name Role Phone Justen Gale MD Primary Care Provider [phone] David Roberts APRN, LIFE SKILLS TRAINER Unavailable [phone] Annel Rod MD Unavailable Reason for Visit * Reason Comments Medication Refill Encounter Details Date Type Department Care Team (Late st Contact Info) Description 09/30/2023 Refill [facility] - [place] #2 [place] [address] Annel Rod MD #[address] [address] Medication Refill Social History Tobacco [...] Contact Info) Description 05/17/2024 2:45 PM CUSTOMER CONTACT SALES ASSOCIATE Office Visit [facility] Medical Group - Endocrinology [facility] #2 [place] [address] Annel Rod MD #[address] [address] documented as of this encounter Visit Diagnoses Not on filedocumented in this encounter Additional Health Concerns Assessment Noted Time PHQ-9 Depression Total Score: 8 01/18/20 23 2:24 PM CDT documented as of this encounter Care Teams Communications Editor Relationship Specialty Start Date End Date Justen Gale MD #[address] [address] PCP - General Family Medicine 10/17/17 David Roberts APRN, LIFE SKILLS TRAINER #2 [place] [address] Nurse Practitioner Advanced Practice Nurse 01/31/22 Annel Rod MD #[address] [address] Consulting Physician Endocrinology 07/01/22 documented as of this encounter
--- OUTSIDE RECORDS SUMMARY | 2024-04-26 07:39 | XMS_ITS | Encounter Summary ---
Author Organization [facility] Address [address] [address] Phone Care Team Providers Care Sterilization Tech Name Role Phone Justen Gale MD Primary Care Provider [phone] David Roberts APRN, MACHINERY RIGGER Unavailable [phone] Annel Rod MD Unavailable Reason for Visit * Reason Onset Date Comments Leg Injury 09/28/2023 Encounter Details Date Type Department Care Team (Late st Contact Info) Description 09/28/2023 [facility] [address] [place] [address] Justen Gale MD #[address] [address] Leg Injury Social History Tobacco Use Types [...] bruise at heparin injection site.) Protocols used: Mhxlmfy-R-SS Verbalized understanding of all care advice given [...] st Contact Info) Description 05/17/2024 2:45 PM DIMMER BOARD OPERATOR Office Visit [facility] - Endocrin[facility] #2 [place] [address] Annel Rod MD #[address] [address] documented as of this encounter Visit Diagnoses Not on filedocumented in this encounter Additional Health Concerns Assessment Noted Time PHQ-9 Depression Total Score: 8 01/18/20 23 2:24 PM CDT documented as of this encounter Care Teams Sterilization Tech Relationship Specialty Start Date End Date Justen Gale MD #[address] [address] PCP - General Family Medicine 10/17/17 David Roberts APRN, MACHINERY RIGGER #2 [place] [address] Nurse Practitioner Advanced Practice Nurse 01/31/22 Annel Rod MD #[address] [address] Consulting Physician Endocrinology 07/01/22 documented as of this encounter
--- OUTSIDE RECORDS SUMMARY | 2024-04-26 07:39 | XMS_ITS | Encounter Summary ---
Author Organization [facility] Address [address] [place] [address] Phone Care Team Providers Care Correction Worker Name Role Phone Justen Gale MD Primary Care Provider [phone] David Roberts APRN, HR ADMINISTRATOR Unavailable [phone] Annel Rod MD Unavailable Reason for Visit * Reason Onset Date Comments Drug Overdose 10/06/2023 Encounter Details Date Type Department Care Team (Late st Contact Info) Description 10/06/2023 [facility] [address] [place] [address] Justen Gale MD #[address] [address] Drug Overdose Social History Tobacco Use Types [...] A double dose of antibiotics.) Protocols used: Fyyidqrww-I-RZ documented in this encounter Plan of Treatment Upcoming Encounters Date Type Department Care Team (Late st Contact Info) Description 05/17/2024 2:45 PM SHORTHAND TEACHER Office Visit [facility] - Endocrinology - [place] #2 [place] [address] Annel Rod MD #[address] [address] documented as of this encounter Visit Diagnoses Not on filedocumented in this encounter Additional Health Concerns Assessment Noted Time PHQ-9 Depression Total Score: 8 01/18/20 23 2:24 PM CDT documented as of this encounter Care Teams Correction Worker Relationship Specialty Start Date End Date Justen Gale MD #[address] [address] PCP - General Family Medicine 10/17/17 David Roberts APRN, HR ADMINISTRATOR #2 [place] [address] Nurse Practitioner Advanced Practice Nurse 01/31/22 Annel Rod MD #[address] [address] Consulting Physician Endocrinology 07/01/22 documented as of this encounter
--- OUTSIDE RECORDS SUMMARY | 2024-04-26 07:39 | XMS_ITS | Encounter Summary ---
Author Organization [facility] Address [address] [place] [address] Phone Care Team Providers Care Food And Nutrition Teacher Name Role Phone Justen Gale MD Primary Care Provider [phone] David Roberts APRN, CONSERVATION WORKER Unavailable [phone] Annel Rod MD Unavailable Reason for Visit * Reason Onset Date Comments Care Management 10/10/2023 Encounter Details Date Type Department Care Team (Late st Contact Info) Description 10/10/2023 Telephone [facility] Ultrasound 1 [place] [address] Annel Rod MD #[address] [address] Care Management Social History Tobacco [...] her next visit. * Telephone Encounter - Annel Rod MD [...] Contact Info) Description 05/17/2024 2:45 PM HORTICULTURAL FARMER Office Visit [facility] - Endocrinology [facility] #[address] [place] [address] Annel Rod MD #[address] [address] documented as of this encounter Visit Diagnoses Not on filedocumented in this encounter Additional Health Concerns Assessment Noted Time PHQ-9 Depression Total Score: 8 01/18/20 23 2:24 PM CDT documented as of this encounter Care Teams Food And Nutrition Teacher Relationship Specialty Start Date End Date Justen Gale MD #2 [facility] [address] [place] [address] PCP - General Family Medicine 10/17/17 David Roberts APRN, NETTA #2 [place] [address] Nurse Practitioner Advanced Practice Nurse 01/31/22 Annel Rod MD #2 [facility] [address] [place] [address] Consulting Physician Endocrinology 07/01/22 documented as of this encounter
--- OUTSIDE RECORDS SUMMARY | 2024-04-26 07:39 | XMS_ITS | Encounter Summary ---
Author Organization [facility] Care Team Providers Care Biofuels Manager Name Role Phone Justen Gale MD Primary Care Provider [phone] David Roberts APRN, CASHIER COURTESY BOOTH Unavailable [phone] Annel Rod MD Unavailable Encounter Details Date [...] st Contact Info) Description 05/17/2024 2:45 PM LONG WALL SHEAR OPERATOR Office Visit [facility] - Endocrinology [facility] #2 [place] [address] Annel Rod MD #[address] [place] [address] documented as of this encounter Visit Diagnoses Not on filedocumented in this encounter Additional Health Concerns Assessment Noted Time PHQ-9 Depression Total Score: 8 01/18/20 23 2:24 PM CDT documented as of this encounter Care Teams Biofuels Manager Relationship Specialty Start Date End Date Justen Gale MD #[address] [address] PCP - General Family Medicine 10/17/17 David Roberts APRN, CASHIER COURTESY BOOTH #2 [place] [address] Nurse Practitioner Advanced Practice Nurse 01/31/22 Annel Rod MD #[address] [place] [address] Consulting Physician Endocrinology 07/01/22 documented as of this encounter
--- OUTSIDE RECORDS SUMMARY | 2024-04-26 07:40 | XMS_ITS | Encounter Summary ---
Author Organization [facility] Address [address] [place] [address] Phone Care Team Providers Care Pick And Shovel Worker Name Role Phone Justen Gale MD Primary Care Provider [phone] David Roberts APRN, ANTISQUEAK APPLIER Unavailable [phone] Annel Rod MD Unavailable Reason for Visit * Reason Comments Medication Refill Encounter Details Date Type Department Care Team (Late st Contact Info) Description 07/06/2023 Refill [facility] #2 [place] [address] Justen Gale MD #[address] [address] Medication Refill Social History Tobacco Use Types [...] AM CDT Medication(s) refilled and signed per [facility] Chronic Medication Refill Standing Order for Pediatricand [...] Dept 06/27/23 Office Visit Justen Gale MD [facility] [place] 01/17/23 Office Visit Catrina Quiñonez MD [facility] Showing recent visits within past 270 days [...] st Contact Info) Description 05/17/2024 2:45 PM BUILD ENGINEER Office Visit [facility] Medical Group - Endocrinology - [place] #[address] [place] [address] Annel Rod MD #[address] [place] [address] documented as of this encounter Visit Diagnoses Not on filedocumented in this encounter Additional Health Concerns Assessment Noted Time PHQ-9 Depression Total Score: 8 01/18/20 23 2:24 PM CDT documented as of this encounter Care Teams Pick And Shovel Worker Relationship Specialty Start Date End Date Justen Gale MD #2 [facility] [address] [place] [address] PCP - General Family Medicine 10/17/17 David Roberts APRN, ANTISQUEAK APPLIER #2 [place] [address] Nurse Practitioner Advanced Practice Nurse 01/31/22 Annel Rod MD #2 [facility] [address] [place] [address] Consulting Physician Endocrinology 07/01/22 documented as of this encounter
--- OUTSIDE RECORDS SUMMARY | 2024-04-26 07:40 | XMS_ITS | Encounter Summary ---
Author Organization [facility] Address [address] [place] [address] Phone Care Team Providers Care Laminating Machine Operator Name Role Phone Justen Gale MD Primary Care Provider [phone] David Roberts APRN, SLUDGE FILTRATION OPERATOR Unavailable [phone] Annel Rod MD Unavailable Reason for Visit * Reason Onset Date Comments Medication Management 07/07/2023 Encounter Details Date Type Department Care Team (Late st Contact Info) Description 07/07/2023 Telephone [facility] #2 [place] [address] Justen Gale MD #[address] [address] Medication Management Social History Tobacco Use Types [...] st Contact Info) Description 05/17/2024 2:45 PM INSTRUMENT ROOM TECHNICIAN Office Visit [facility] - Endocrinology [facility] #2 [place] [address] Annel Rod MD #2 [facility] [address] [place] [address] documented as of this encounter Visit Diagnoses Not on filedocumented in this encounter Additional Health Concerns Assessment Noted Time PHQ-9 Depression Total Score: 8 01/18/20 23 2:24 PM CDT documented as of this encounter Care Teams Laminating Machine Operator Relationship Specialty Start Date End Date Justen Gale MD #2 [facility] [address] [place] [address] PCP - General Family Medicine 10/17/17 David Roberts, DRAWING BOX TENDER, SLUDGE FILTRATION OPERATOR #2 [place] [address] Nurse Practitioner Advanced Practice Nurse 01/31/22 Annel Rod MD #2 [place] [phone] Consulting Physician Endocrinology 07/01/22 documented as of this encounter
--- OUTSIDE RECORDS SUMMARY | 2024-04-26 07:40 | XMS_ITS | Encounter Summary ---
Author Organization [facility] Address [address] [place] [address] Phone Care Team Providers Care Senior Accountant Name Role Phone Justen Gale MD Primary Care Provider [phone] David Roberts APRN, DIRECTOR ORACLE RETAIL Unavailable [phone] Annel Rod MD Unavailable Reason for Visit * Reason Onset Date Comments Erroneous Encounter - Disregard 08/03/2023 Encounter Details Date Type Department Care Team (Late st Contact Info) Description 08/03/2023 Telephone [facility] [address] [place] [address] Justen Gale MD #[address] [address] Erroneous Encounter - Disregard Social History Tobacco [...] st Contact Info) Description 05/17/2024 2:45 PM CERTIFIED COMPOSITES TECHNICIAN Office Visit [facility] - Endocrinology - [place] [facility] [place] [address] Annel Rod MD #[address] [address] documented as of this encounter Visit Diagnoses Not on filedocumented in this encounter Additional Health Concerns Assessment Noted Time PHQ-9 Depression Total Score: 8 01/18/20 23 2:24 PM CDT documented as of this encounter Care Teams Senior Accountant Relationship Specialty Start Date End Date Justen Gale MD #[address] [place] [address] PCP - General Family Medicine 10/17/17 David Roberts, EQUITY ANALYST, DIRECTOR ORACLE RETAIL #2 [place] [address] Nurse Practitioner Advanced Practice Nurse 01/31/22 Annel Rod MD #[address] [place] [address] Consulting Physician Endocrinology 07/01/22 documented as of this encounter
--- OUTSIDE RECORDS SUMMARY | 2024-04-26 07:40 | XMS_ITS | Encounter Summary ---
Author Organization [facility] Address [address] [place] [address] Phone Care Team Providers Care Territory Service Representative Name Role Phone Justen Gale MD Primary Care Provider [phone] David Roberts APRN, SERVICE CORRESPONDENT Unavailable [phone] Annel Rod MD Unavailable Reason for Visit * Reason Onset Date Comments Medication Management 08/01/2023 Follow-up 08/01/2023 Results 08/01/2023 Encounter Details Date Type Department Care Team (Late st Contact Info) Description 08/01/2023 Telephone [facility] [address] [place] [address] Justen Gale MD #[address] [address] Medication Management; Follow-up; Results Social History Tobacco [...] culture results today from recent stay at [facility] (please see Care Everywhere for culture results) [...] and she declined. [facility]. documented in this encounter Plan of Treatment Upcoming Encounters Date Type Department Care Team (Late st Contact Info) Description 05/17/2024 2:45 PM RENOVATOR MACHINE OPERATOR Office Visit [facility] - [facility] #2 [place] [address] Annel Rod MD #[address] [address] documented as of this encounter Visit Diagnoses Not on filedocumented in this encounter Additional Health Concerns Assessment Noted Time PHQ-9 Depression Total Score: 8 01/18/20 23 2:24 PM CDT documented as of this encounter Care Teams Territory Service Representative Relationship Specialty Start Date End Date Justen Gale MD #[address] [address] PCP - General Family Medicine 10/17/17 David Roberts, TOWEL STRETCHER, SERVICE CORRESPONDENT #2 [place] [address] Nurse Practitioner Advanced Practice Nurse 01/31/22 Annel Rod MD #[address] [address] Consulting Physician Endocrinology 07/01/22 documented as of this encounter
--- OUTSIDE RECORDS SUMMARY | 2024-04-26 07:40 | XMS_ITS | Encounter Summary ---
Author Organization [facility] Address [address] [place] [address] Phone Care Team Providers Care Superintendent Transmission Name Role Phone Justen Gale MD Primary Care Provider [phone] David Roberts APRN, SYSTEMS SOFTWARE SPECIALIST Unavailable [phone] Annel Rod MD Unavailable Reason for Visit * Reason Onset Date Comments Advice Only 07/12/2023 Encounter Details Date Type Department Care Team (Late st Contact Info) Description 07/12/2023 Telephone [facility] [address] [place] [address] Justen Gale MD #[address] [address] Advice Only Social History Tobacco Use Types [...] Moss - 07/12/2023 10:07 AM CDT RFC: [facility] - Pharmacist with [facility], calling today requesting confirmation or denial if the patient is currently taking a Statin medication for diabetes, and if not, stating they would liketo submit a recommendation for this. Verified office fax number with her. Please call [facility] - [phone] (relationship to patient other) back regarding above referenced patient. Patient's Provider is Justen Gale MD . documented in this encounter Plan of Treatment Upcoming Encounters Date Type Department Care Team (Late st Contact Info) Description 05/17/2024 2:45 PM PIPE CLEANER Office Visit [facility] - Endocrinology [facility] #2 [place] [address] Annel Rod MD #[address] [address] documented as of this encounter Visit Diagnoses Not on filedocumented in this encounter Additional Health Concerns Assessment Noted Time PHQ-9 Depression Total Score: 8 01/18/20 23 2:24 PM CDT documented as of this encounter Care Teams Superintendent Transmission Relationship Specialty Start Date End Date Justen Gale MD #[address] [address] PCP - General Family Medicine 10/17/17 David Roberts, TOUR ESCORT, SYSTEMS SOFTWARE SPECIALIST #2 [place] [address] Nurse Practitioner Advanced Practice Nurse 01/31/22 Annel Rod MD [address] [address] Consulting Physician Endocrinology 07/01/22 documented as of this encounter
--- OUTSIDE RECORDS SUMMARY | 2024-04-26 07:40 | XMS_ITS | Encounter Summary ---
Author Organization [facility] Address [address] [place] [address] Phone Care Team Providers Care Twisting Frame Operator Name Role Phone Justen Gale MD Primary Care Provider [phone] David Roberts APRN, STRIKER OUT Unavailable [phone] Annel Rod MD Unavailable Reason for Visit * Reason Onset Date Comments Advice Only 07/07/2023 Tongue Pain 07/07/2023 Vaginal Itching 07/07/2023 Thrush 07/07/2023 Encounter Details Date Type Department Care Team (Late st Contact Info) Description 07/07/2023 Nurse Triage [facility] [address] [place] [address] Justen Gale MD #[address] [address] Advice Only; Tongue Pain; Vaginal Itching; Thrush [...] other encounter 07-07-23 * Telephone Encounter - Fernanda Radford RN - 07/07/2023 11:45 AM CDT [...] school, work, or sleep) Protocols used: Vaginal Rrgnthop-N-VT * Telephone Encounter - Gogo Guillaume - [...] st Contact Info) Description 05/17/2024 2:45 PM BLANKBOOK FORWARDER Office Visit [facility] - Endocrinology - [place] #2 [place] [address] Annel Rod MD #[address] [address] documented as of this encounter Visit Diagnoses Not on filedocumented in this encounter Additional Health Concerns Assessment Noted Time PHQ-9 Depression Total Score: 8 01/18/20 23 2:24 PM CDT documented as of this encounter Care Teams Twisting Frame Operator Relationship Specialty Start Date End Date Justen Gale MD #[address] [address] PCP - General Family Medicine 10/17/17 David Roberts, CONVENTIONAL MORTGAGE UNDERWRITER, STRIKER OUT #2 [place] [address] Nurse Practitioner Advanced Practice Nurse 01/31/22 Annel Rod MD #[address] [place] [address] Consulting Physician Endocrinology 07/01/22 documented as of this encounter
--- OUTSIDE RECORDS SUMMARY | 2024-04-26 07:40 | XMS_ITS | Encounter Summary ---
Author Organization [facility] Address [address] [place] [address] Phone Care Team Providers Care Ict Systems Test Engineer Name Role Phone Justen Gale MD Primary Care Provider [phone] David Roberts APRN, TRANSPORTATION SUPERVISOR Unavailable [phone] Annel Rod MD Unavailable Reason for Visit * Reason Onset Date Comments Low Blood Sugar 07/19/2023 Encounter Details Date Type Department Care Team (Late st Contact Info) Description 07/19/2023 Telephone [facility] - [facility]ocr[facility]ology - [place] #2 [place] [address] Annel Rod MD #[address] [address] Low Blood Sugar Social History [...] Contact Info) Description 05/17/2024 2:45 PM COMPUTER EQUIPMENT INSTALLER Office Visit [facility] - Endocrinology - [place] #2 [place] [address] Annel Rod MD #[address] [phone] documented as of this encounter Visit Diagnoses Not on filedocumented in this encounter Additional Health Concerns Assessment Noted Time PHQ-9 Depression Total Score: 8 01/18/20 23 2:24 PM CDT documented as of this encounter Care Teams Ict Systems Test Engineer Relationship Specialty Start Date End Date Justen Gale MD #2 [facility] [address] [place] [address] PCP - General Family Medicine 10/17/17 David Roberts APRN, TRANSPORTATION SUPERVISOR #2 [place] [address] Nurse Practitioner Advanced Practice Nurse 01/31/22 Annel Rod MD #2 [facility] [address] [place] [address] Consulting Physician Endocrinology 07/01/22 documented as of this encounter
--- OUTSIDE RECORDS SUMMARY | 2024-04-26 07:40 | XMS_ITS | Encounter Summary ---
Author Organization [facility] Address [address] [place] [address] Phone Care Team Providers Care Sprayer Machine Name Role Phone Justen Gale MD Primary Care Provider [phone] David Roberts APRN, REAL ESTATE VALUER Unavailable [phone] Annel Rod MD Unavailable Reason for Visit * Reason Onset Date Comments Back Pain 07/26/2023 Encounter Details Date Type Department Care Team (Late st Contact Info) Description 07/26/2023 [facility] [address] [place] [address] Justen Gale MD #[address] [address] Back Pain Social History Tobacco Use Types [...] Worsening symptoms since although chronic pain Takes [place] although only helps for 2-3 hours. 4 months ago back stimulator was attempted although has been shut off since there was no provided relief. Patient denied any nurse behavioral health care or exercise Assessment: See Assessment Questions Below... [...] st Contact Info) Description 05/17/2024 2:45 PM PLUCK SEPARATOR Office Visit [facility] - Endocrinology [facility] #2 [place] [address] Annel Rod MD #[address] [address] documented as of this encounter Visit Diagnoses Not on filedocumented in this encounter Additional Health Concerns Assessment Noted Time PHQ-9 Depression Total Score: 8 01/18/20 23 2:24 PM CDT documented as of this encounter Care Teams Sprayer Machine Relationship Specialty Start Date End Date Justen Gale MD #2 [facility] [address] [place] [address] PCP - General Family Medicine 10/17/17 David Roberts APRN, REAL ESTATE VALUER #2 [place] [address] Nurse Practitioner Advanced Practice Nurse 01/31/22 Annel Rod MD #[address] [address] Consulting Physician Endocrinology 07/01/22 documented as of this encounter
--- OUTSIDE RECORDS SUMMARY | 2024-04-26 07:40 | XMS_ITS | Encounter Summary ---
Author Organization [facility] Address [address] [place] [address] Phone Care Team Providers Care Body Maker Name Role Phone Justen Gale MD Primary Care Provider [phone] David Roberts APRN, MINING ENGINEER Unavailable [phone] Annel Rod MD Unavailable Reason for Visit * Reason Onset Date Comments Medication Management 07/22/2023 Encounter Details Date Type Department Care Team (Late st Contact Info) Description 07/22/2023 Telephone [facility] [address] [place] [address] Annel Rod MD #[address] [address] Medication Management Social History Tobacco [...] days. Provider is non-contracted. Patient transferred to [facility] for Dr. Rod found in OneNote: [phone]. documented in this encounter Plan of Treatment Upcoming Encounters Date Type Department Care Team (Late st Contact Info) Description 05/17/2024 2:45 PM NATURALIST Office Visit [facility] - [facility] #2 [place] [address] Annel Rod MD #[address] [address] documented as of this encounter Visit Diagnoses Not on filedocumented in this encounter Additional Health Concerns Assessment Noted Time PHQ-9 Depression Total Score: 8 01/18/20 23 2:24 PM CDT documented as of this encounter Care Teams Body Maker Relationship Specialty Start Date End Date Justen Gale MD #2 [facility] [address] [place] [address] PCP - General Family Medicine 10/17/17 David Roberts, WAREHOUSE MATERIAL HANDLER, MINING ENGINEER #2 [place] [address] Nurse Practitioner Advanced Practice Nurse 01/31/22 Annel Rod MD #[address] [address] Consulting Physician Endocrinology 07/01/22 documented as of this encounter
--- OUTSIDE RECORDS SUMMARY | 2024-04-26 07:41 | XMS_ITS | Encounter Summary ---
Author Organization [facility] Address [address] [place] [address] Phone Care Team Providers Care Master Steam Yacht Name Role Phone Justen Gale MD Primary Care Provider [phone] David Roberts APRN, MOLD SHOP SUPERVISOR Unavailable [phone] Annel Rod MD Unavailable Reason for Visit * Reason Onset Date Comments Shortness of Breath 06/28/2023 Encounter Details Date Type Department Care Team (Late st Contact Info) Description 06/28/2023 [facility] [address] [place] [address] Justen Gale MD #[address] [address] Shortness of Breath Social History Tobacco Use [...] words, pulse > 120) Protocols used: Breathing Crdspyrbbz-U-DC ER HELPER documented in this encounter Plan of Treatment Upcoming Encounters Date Type Department Care Team (Late st Contact Info) Description 05/17/2024 2:45 PM CASTER HELPER Office Visit [facility] - Endocrinology - [place] #[address] [place] [address] Annle Rod MD #[address] [address] documented as of this encounter Visit Diagnoses Not on filedocumented in this encounter Additional Health Concerns Assessment Noted Time PHQ-9 Depression Total Score: 8 01/18/20 23 2:24 PM CDT documented as of this encounter Care Teams Master Steam Yacht Relationship Specialty Start Date End Date Justen Gale MD #2 [facility] [address] [place] [address] PCP - General Family Medicine 10/17/17 David Roberts GROUND CREW SUPERVISOR, MOLD SHOP SUPERVISOR #2 [place] [address] Nurse Practitioner Advanced Practice Nurse 01/31/22 Annel Rod MD #2 [facility] [address] [place] [address] Consulting Physician Endocrinology 07/01/22 documented as of this encounter
--- OUTSIDE RECORDS SUMMARY | 2024-04-26 07:41 | XMS_ITS | Encounter Summary ---
Author Organization [facility] Address [address] [place] [address] Phone Care Team Providers Care Executive Personal Assistant Name Role Phone Justen Gale MD Primary Care Provider [phone] David Roberts APRN, PEOPLE GREETER Unavailable [phone] Annel Rod MD Unavailable Reason for Visit * Reason Onset Date Comments Shortness of Breath 07/02/2023 Encounter Details Date Type Department Care Team (Late st Contact Info) Description 07/02/2023 [facility] [address] [place] [address] Justen Gale MD #[address] [address] Shortness of Breath Social History Tobacco Use [...] or WORSE than normal Protocols used: Breathing Vqnfcjkcwr-S-WS Pt verbalizes understanding of need to go to ER and be seen by a provider. documented in this encounter Plan of Treatment Upcoming Encounters Date Type Department Care Team (Late st Contact Info) Description 05/17/2024 2:45 PM ADULT BASIC EDUCATION TEACHER Office Visit [facility] - Endocrinology - [place] #2 [place] [address] Annel Rod MD #2 [facility] [address] [place] [address] documented as of this encounter Visit Diagnoses Not on filedocumented in this encounter Additional Health Concerns Assessment Noted Time PHQ-9 Depression Total Score: 8 01/18/20 23 2:24 PM CDT documented as of this encounter Care Teams Executive Personal Assistant Relationship Specialty Start Date End Date Justen Gale MD #2 [facility] [address] [place] [address] PCP - General Family Medicine 10/17/17 David Roberts APRN, CNP #2 [place] [address] Nurse Practitioner Advanced Practice Nurse 01/31/22 Annel Rod MD #2 [facility] [address] [place] [address] Consulting Physician Endocrinology 07/01/22 documented as of this encounter
--- OUTSIDE RECORDS SUMMARY | 2024-04-26 07:41 | XMS_ITS | Encounter Summary ---
Author Organization [facility] Address [address] [place] [address] Phone Care Team Providers Care Nickel Operator Name Role Phone Justen Gale MD Primary Care Provider [phone] David Roberts APRN, FORWARDER OPERATOR Unavailable [phone] Annel Rod MD Unavailable Reason for Visit * Reason Onset Date Comments Medication Refill 04/14/2023 Encounter Details Date Type Department Care Team (Late st Contact Info) Description 04/14/2023 MyChart RX Renewal [facility] - Endocr[facility]ology [facility] #2 [place] [address] Annel Rod MD #[address] [address] Medication Renewal Request Social History [...] st Contact Info) Description 05/17/2024 2:45 PM SUPERINTENDENT MEASUREMENT Office Visit [facility] - Endocrinology [facility] #2 [place] [address] Annel Rod MD #[address] [address] documented as of this encounter Visit Diagnoses Not on filedocumented in this encounter Additional Health Concerns Assessment Noted Time PHQ-9 Depression Total Score: 8 01/18/20 23 2:24 PM CDT documented as of this encounter Care Teams Nickel Operator Relationship Specialty Start Date End Date Justen Gale MD #[address] [address] PCP - General Family Medicine 10/17/17 David Roberts APRN, FORWARDER OPERATOR #2 [place] [address] Nurse Practitioner Advanced Practice Nurse 01/31/22 Annel Rod MD #[address] [address] Consulting Physician Endocrinology 07/01/22 documented as of this encounter
--- OUTSIDE RECORDS SUMMARY | 2024-04-26 07:41 | XMS_ITS | Encounter Summary ---
Author Organization [facility] Address [address] [place] [address] Phone Care Team Providers Care Hand Suture Winder Name Role Phone Justen Gale MD Primary Care Provider [phone] David Roberts APRN, WINE MAKER Unavailable [phone] Annel Rod MD Unavailable Reason for Visit * Reason Comments ED Follow-up Back pain Encounter Details Date Type Department Care Team (Late st Contact Info) Description 06/27/2023 1:00 PM PLATER PRODUCTION [facility] [place] [id number] Justen Gale MD #[address] [address] Pharyngitis due to group B beta hemolytic [...] Comments Blood Pressure 142/92 06/27/2023 12:59 PM PLATER PRODUCTION Pulse 85 06/27/2023 12:59 PM PLATER PRODUCTION Temperature 36.4 ??C (97.5 ??F) 06/27/2023 12:[address] Respiratory Rate 20 06/27/2023 12:59 PM PLATER PRODUCTION Oxygen Saturation 97% 06/27/2023 12:59 PM PLATER PRODUCTION Inhaled Oxygen Concentration - - Weight 126.8 kg (279 lb 8 oz) 06/27/2023 12:59 P M PLATER PRODUCTION Height 154.9 cm (5' 1 ) 06/27/2023 12:59 PM PLATER PRODUCTION Body Mass Index 52.81 06/27/2023 12:59 PM PLATER PRODUCTION documented in this encounter Progress Notes * Alvina Lockwood RMA - 06/27/2023 1:00 PM CST Karly Marques is a 68 y.o. female with current BMI: Body mass index is 52.81 kg/m??. Interventions discussed including: encourage daily physical activity and well- balanced diet. ER PRODUCTION * Alvina Lockwood RMA - 06/27/2023 1:00 [...] every 6 hours as needed. Yes Tyler Smtih MD exemestane (AROMASIN) 25 MG Tablet Take [...] g by mouth 2 times daily. Yes yTler Smith MD metoprolol tartrate (LOPRESSOR) 25 MG Tablet Take 1 Tablet by mouth 2 times daily. 07/05/22 Yes Pili Elkins APRN, NETTA [facility]. Devices [facility] Supply and instructions: 09/09/20 Yes Justen Gale MD Myrbetriq 50 MG TABLET SR 24 HR Take 50 mg by mouth daily. 04/27/22 Yes Tyler Smith MD naloxone HCl (Narcan) 4 MG/0.1ML Liquid as needed 05/13/21 Yes Tyler Smith MD nystatin [id number] UNIT/GM Powder 11/09/21 Yes Tyler Smith MD ondansetron (Zofran) 4 MG Tablet Take 1 Tablet by mouth every 8 hours as needed for Nausea - 1st line. 04/13/23 Yes Pili Elkins APRN, WINE MAKER OneTouch Delica Lancets 33G [facility] 1 Lancet by Does not [...] been addressed with the patient today: BMI ER PRODUCTION * Justen Gale MD - 06/27/2023 1:00 [...] History: Procedure Laterality Date BACK SURGERY 02/16/2023 [facility]; Spinal Stmulator BREAST SURGERY CHOLECYSTECTOMY LAP,INGUINAL [...] pain nose and ears too Went to [facility] 06/16/2023 Went to [place] Had [...] (Narcan) 4 MG/0.1ML Liquid as needed nystatin [id number] UNIT/GM Powder ondansetron (Zofran) 4 MG Tablet [...] to pain doctor. Sees him soon in [place]. Sees dr moore pain doctor. Strep pharyngitis: on z pack already has only been two days. Lets give it more time to work. Vitalsfine. 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 Streptococcal sore throat Bilateral low back pain with sciatica, sciatica laterality unspecified, unspecified chronicity documented in this encounter Additional Health Concerns Assessment Noted Time PHQ-9 Depression Total Score: 8 01/18/20 2:24 PM CDT documented as of this encounter Care Teams Hand Suture Winder Relationship Specialty Start Date End Date Justen Gale MD #[address] [address] PCP - General Family Medicine 10/17/17 David Roberts, SIZE ROLLER OPERATOR, WINE MAKER #2 [place] [address] Nurse Practitioner Advanced Practice Nurse 01/31/22 Annel Rod MD #[address] [address] Consulting Physician Endocrinology 07/01/22 documented as of this encounter
--- OUTSIDE RECORDS SUMMARY | 2024-04-26 07:41 | XMS_ITS | Encounter Summary ---
Author Organization [facility] [employer] Care Team Providers Care Vision Therapist Name Role Phone Justen Gale MD Primary Care Provider [phone] David Roebrts APRN, [facility] Unavailable [phone] Annel Rod MD Unavailable Encounter Details Date [...] Contact Info) Description 05/17/2024 2:45 PM HOSPITAL PHARMACY TECHNICIAN Office Visit [facility] Medical Group - Endocrinology [facility] #2 [place] [address] Annel Rod MD #[address] [address] documented as of this encounter Visit Diagnoses Not on filedocumented in this encounter Additional Health Concerns Assessment Noted Time PHQ-9 Depression Total Score: 8 01/18/20 23 2:24 PM CDT documented as of this encounter Care Teams Vision Therapist Relationship Specialty Start Date End Date Justen Gale MD #[address] [address] PCP - General Family Medicine 10/17/17 David Roberts APRN, NETTA #2 [place] [address] Nurse Practitioner Advanced Practice Nurse 01/31/22 Annel Rod MD #[address] [address] Consulting Physician Endocrinology 07/01/22 documented as of this encounter
--- OUTSIDE RECORDS SUMMARY | 2024-04-26 07:41 | XMS_ITS | Encounter Summary ---
Author Organization [facility] [employer] Care Team Providers Care Harvest Field Ticketer Name Role Phone Justen Gale MD Primary Care Provider [phone] David Roberts APRN, [facility] Unavailable [phone] Annel Rod MD Unavailable Encounter Details Date [...] Contact Info) Description 05/17/2024 2:45 PM MANAGER ACUTE Office Visit [facility] Medical Group - Endocrinology [facility] #2 [place] [address] Annel Rod MD #[address] [address] documented as of this encounter Visit Diagnoses Not on filedocumented in this encounter Additional Health Concerns Assessment Noted Time PHQ-9 Depression Total Score: 8 01/18/20 23 2:24 PM CDT documented as of this encounter Care Teams Harvest Field Ticketer Relationship Specialty Start Date End Date Justen Gale MD #[address] [address] PCP - General Family Medicine 10/17/17 David Roberts APRN, NETTA #2 [place] [address] Nurse Practitioner Advanced Practice Nurse 01/31/22 Annel Rod MD #[address] [address] Consulting Physician Endocrinology 07/01/22 documented as of this encounter
--- OUTSIDE RECORDS SUMMARY | 2024-04-26 07:41 | XMS_ITS | Encounter Summary ---
Author Organization [facility] Address [address] [place] [address] Phone Care Team Providers Care Lead Retail Sales Associate Name Role Phone Justen Gale MD Primary Care Provider [phone] David Roberts APRN, VEHICLE DELIVERY WORKER Unavailable [phone] Annel Rod MD Unavailable Reason for Referral * Radiology Services (Routine) - Closed Specialty Diagnoses / Procedures Referred By Elyssa benavides Referred To Contact Radiology Diagnoses Thyroid nodule Procedures US THYROID Annel Rod MD #[address] [address] Phone: tel: fax: Referral ID Status Reason Start Date Expiration Date Visits Re quested Visits Authorized [id number] Closed 05/30/2023 1 1 ILE PIN WORKER Reason for Visit * Reason Comments Follow-up Diabetes Mellitus Encounter Details Date Type Department Care Team (Late st Contact Info) Description 05/30/2023 2:30 PM TEXTILE PIN WORKER [facility] Visit [facility] - [place] #2 [place] [address] Annel Rod MD #[address] [address] Type 2 diabetes mellitus with [...] Comments Blood Pressure 128/78 05/30/2023 2:36 PM TEXTILE PIN WORKER Pulse 88 05/30/2023 2:36 PM TEXTILE PIN WORKER Temperature 37.1 ??C (98.7 ??F) 05/30/2023 2:36 PM CS T Respiratory Rate 20 05/30/2023 2:36 PM TEXTILE PIN WORKER Oxygen Saturation 96% 05/30/2023 2:36 PM TEXTILE PIN WORKER Inhaled Oxygen Concentration - - Weight 123.9 kg (273 lb 3.2 oz) 05/30/2023 2:36 PM TEXTILE PIN WORKER Height - - Body Mass Index 51.62 01/17/2023 2:25 PM CDT documented in this encounter Patient Instructions * Patient Instructions* Annel Rod MD - 05/30/2023 2:30 PM TEXTILE PIN WORKER Please start Mournjaro 2.5 mg SC weekly [...] 300 +11 UNITS ABOVE 300 +12 UNITS ILE PIN WORKER documented in this encounter Progress Notes * [...] or severe hypoglycemia requiring third libertarian intervention. Review of her CGM report for [...] particular,hemoglobin A1c is well above the patient's [employer] treatment target of less than [...] including pre-visit review of separately obtained history, nzoe-zf-[id number] interaction performing medically appropriate physical exam, patientcounseling/education, interpretation of diagnostic results, care coordination and documentation was33 minute Annel Rod MD 05/30/2023 ILE PIN WORKER documented in this encounter Plan of Treatment Upcoming Encounters Date Type Department Care Team (Late st Contact Info) Description 05/17/2024 2:45 PM TEXTILE PIN WORKER Office Visit [facility] - [place] #2 [place] [address] Annel Rod MD #[address] [address] documented as of this encounter Results * [...] PM T: ??09/11/2023 12:52 PM Report ID: [id number] Reading Location: ??[id number] Procedure Note Maykel Montano MD - 09/11/2023 [...] Maykel Montano M.D. AM: AM Report ID: [id number] Reading Location: [place] [address] IMPRESSION: 1. 1.1 cm TI-RADS 4 nodule [...] documented as of this encounter Care Teams Lead Retail Sales Associate Relationship Specialty Start Date End Date Justen Gale MD #[address] [address] PCP - General Family Medicine 10/17/17 David Roberts APRN, VEHICLE DELIVERY WORKER #2 [place] [address] Nurse Practitioner Advanced Practice Nurse 01/31/22 Annel Rod MD #[address] [address] Consulting Physician Endocrinology 07/01/22 documented as of this encounter
--- OUTSIDE RECORDS SUMMARY | 2024-04-26 07:41 | XMS_ITS | Encounter Summary ---
Author Organization [facility] Address [address] [place] [address] Phone Care Team Providers Care Computer Aided Drafter Name Role Phone Justen Gale MD Primary Care Provider [phone] David Roberts APRN, MANAGER FIELD Unavailable [phone] Annel Rod MD Unavailable Reason for Visit * Reason Onset Date Comments Sore Throat 04/28/2023 Encounter Details Date Type Department Care Team (Late st Contact Info) Description 04/28/2023 [facility] [address] [place] [address] Justen Gale MD #[address] [address] Sore Throat Social History Tobacco Use Types [...] STREP THROAT INFECTION ON ANTIBIOTIC FOLLOW-UP CALL-A- GE LEVERMAN documented in this encounter Plan of Treatment Upcoming Encounters Date Type Department Care Team (Late st Contact Info) Description 05/17/2024 2:45 PM BRIDGE LEVERMAN Office Visit [facility] Medical Group - Endocrinology [facility] #2 [place] [address] Annel Rod MD #2 [facility] [address] [place] [address] documented as of this encounter Visit Diagnoses Not on filedocumented in this encounter Additional Health Concerns Assessment Noted Time PHQ-9 Depression Total Score: 8 01/18/20 23 2:24 PM CDT documented as of this encounter Care Teams Computer Aided Drafter Relationship Specialty Start Date End Date Justen Gale MD #2 [facility] [address] [place] [address] PCP - General Family Medicine 10/17/17 David Roberts APRN, MANAGER FIELD #2 [place] [address] Nurse Practitioner Advanced Practice Nurse 01/31/22 Annel Rod MD #[address] [place] [address] [address] Consulting Physician Endocrinology 07/01/22 documented as of this encounter
--- OUTSIDE RECORDS SUMMARY | 2024-04-26 07:41 | XMS_ITS | Encounter Summary ---
Author Organization [facility] Address [address] [place] [address] Phone Care Team Providers Care Contract Technician Name Role Phone Justen Gale MD Primary Care Provider [phone] David Roberts APRN, MANAGER OF REGULATORY AFFAIRS Unavailable [phone] Annel Rod MD Unavailable Reason for Visit * Reason Onset Date Comments Results 05/01/2023 Encounter Details Date Type Department Care Team (Late st Contact Info) Description 05/01/2023 Telephone [facility] #2 [place] [address] Justen Gale MD #[address] [address] Results Social History Tobacco Use Types Packs/Day [...] medical attention. She stated that she understood SHOP KEEPER * Telephone Encounter - Stacy Huang RN [...] you want to give her something else? SHOP KEEPER * Telephone Encounter - Stacy Huang RN - 05/02/2023 9:21 AM CST LVM for patient to call back. SHOP KEEPER * Telephone Encounter - Justen Gale MD - 05/01/2023 9:20 AM CST Please call. Blood cultures at [facility] show bacteria in your blood How are you feeling? Fevers?chills? Cough? SHOP KEEPER documented in this encounter Plan of Treatment Upcoming Encounters Date Type Department Care Team (Late st Contact Info) Description 05/17/2024 2:45 PM PAWN SHOP KEEPER Office Visit [facility] Medical Group - Endocrinology - [place] #2 [place] [address] Annel Rod MD #[address] [address] documented as of this encounter Visit Diagnoses Not on filedocumented in this encounter Additional Health Concerns Assessment Noted Time PHQ-9 Depression Total Score: 8 01/18/20 23 2:24 PM CDT documented as of this encounter Care Teams Contract Technician Relationship Specialty Start Date End Date Justen Gale MD #[address] [address] PCP - General Family Medicine 10/17/17 David Roberts APRN, NETTA #2 [place] [address] Nurse Practitioner Advanced Practice Nurse 01/31/22 Annel Rod MD #[address] [address] Consulting Physician Endocrinology 07/01/22 documented as of this encounter
--- OUTSIDE RECORDS SUMMARY | 2024-04-26 07:41 | XMS_ITS | Encounter Summary ---
Author Organization [facility] Address [address] [place] [address] Phone Care Team Providers Care Special Education Teachers Name Role Phone Justen Gale MD Primary Care Provider [phone] David Roberts APRN, ACID PURIFIER Unavailable [phone] Annel Rod MD Unavailable Reason for Visit * Reason Onset Date Comments Advice Only 05/05/2023 Generalized Weakness 05/05/2023 Shortness of Breath 05/05/2023 Encounter Details Date Type Department Care Team (Late st Contact Info) Description 05/05/2023 [facility] [address] [place] [address] Justen Gale MD #[address] [address] Advice Only; Generalized Weakness; Shortness of Breath [...] or worse than normal Protocols used: BREATHING [id number] L POST INSTALLER * Telephone Encounter - Astrid Parrish - 05/05/2023 11:54 AM STEEL POST INSTALLER Symptoms: Breathing Trouble, Lethargic (Tired), Weakness Outcome: Warm transfer to an emergent RN NOW! Reason: Trouble walking The caller accepted this outcome L POST INSTALLER documented in this encounter Plan of Treatment Upcoming Encounters Date Type Department Care Team (Late st Contact Info) Description 05/17/2024 2:45 PM STEEL POST INSTALLER Office Visit [facility] - [place] #2 [place] [address] Annel Rod MD #2 [facility] [address] [place] [address] documented as of this encounter Visit Diagnoses Not on filedocumented in this encounter Additional Health Concerns Assessment Noted Time PHQ-9 Depression Total Score: 8 01/18/20 23 2:24 PM CDT documented as of this encounter Care Teams Special Education Teachers Relationship Specialty Start Date End Date Justen Gale MD #[address] [address] PCP - General Family Medicine 10/17/17 David Roberts APRN, ACID PURIFIER #2 [place] [address] Nurse Practitioner Advanced Practice Nurse 01/31/22 Annel Rod MD #[address] [address] Consulting Physician Endocrinology 07/01/22 documented as of this encounter
--- OUTSIDE RECORDS SUMMARY | 2024-04-26 07:41 | XMS_ITS | Encounter Summary ---
Author Organization [facility] Address [address] [place] [address] Phone Care Team Providers Care Frozen Foods Manager Name Role Phone Justen Gale MD Primary Care Provider [phone] David Roberts APRN, AGENCY SALES DEVELOPMENT ASSOCIATE Unavailable [phone] Annel Rod MD Unavailable Reason for Visit * Reason Onset Date Comments Back Pain 05/28/2023 Extremity Weakness 05/28/2023 Encounter Details Date Type Department Care Team (Late st Contact Info) Description 05/28/2023 Nurse Triage [facility] [address] [place] [address] Justen Gale MD #[address] [address] Back Pain; Extremity Weakness Social History Tobacco [...] (0-10): severe Temp: unsure Treatment / Response: Saffell helps but she only gets to three [...] [2] new-onset or worsening Protocols used: NEUROLOGIC [id number] CONTROLLER documented in this encounter Plan of Treatment Upcoming Encounters Date Type Department Care Team (Late st Contact Info) Description 05/17/2024 2:45 PM CFO CONTROLLER Office Visit [facility] #2 [place] [address] Annel Rod MD #[address] [address] documented as of this encounter Visit Diagnoses Not on filedocumented in this encounter Additional Health Concerns Assessment Noted Time PHQ-9 Depression Total Score: 8 01/18/20 23 2:24 PM CDT documented as of this encounter Care Teams Frozen Foods Manager Relationship Specialty Start Date End Date Justen Gale MD #[address] [address] PCP - General Family Medicine 10/17/17 David Roberts APRN, AGENCY SALES DEVELOPMENT ASSOCIATE #2 [place] [address] Nurse Practitioner Advanced Practice Nurse 01/31/22 Annel Rod MD #[address] [address] Consulting Physician Endocrinology 07/01/22 documented as of this encounter
--- OUTSIDE RECORDS SUMMARY | 2024-04-26 07:41 | XMS_ITS | Encounter Summary ---
Author Organization [facility] Address [address] [place] [address] Phone Care Team Providers Care Log Cooker Name Role Phone Justen Gale MD Primary Care Provider [phone] David Roberts APRN, LABORATORY DEVELOPMENT TECHNICIAN Unavailable [phone] Eliel Bliss MD Unavailable Encounter Details Date Type Department Care Team (Late st Contact Info) Description 06/27/2023 Telephone [facility] - [place] #2 [place] [address] Eliel Bliss MD #[address] [address] Social History Tobacco Use Types [...] on: 06/27/2023 11:34 PM Modules accepted: Orders DE SALES ACCOUNT MANAGER * Telephone Encounter - Eliel Bliss MD - 06/27/2023 11:34 PM CST Rx sent DE SALES ACCOUNT MANAGER * Telephone Encounter - Jenny Patel RMA - 06/27/2023 3:33 PM CST Patient was seen on 05-28-23 and insulin dosing was changed and patient is running low. Pharmacy needs new scripts sent to them so they can refill it with the new instructions DE SALES ACCOUNT MANAGER documented in this encounter Plan of Treatment Upcoming Encounters Date Type Department Care Team (Late st Contact Info) Description 05/17/2024 2:45 PM INSIDE SALES ACCOUNT MANAGER Office Visit [facility] - Endocrinology [facility] #[address] [place] [address] Eliel Bliss MD #2 [facility] [address] [place] [address] documented as of this encounter Visit Diagnoses Not on filedocumented in this encounter Additional Health Concerns Assessment Noted Time PHQ-9 Depression Total Score: 8 01/18/20 23 2:24 PM CDT documented as of this encounter Care Teams Log Cooker Relationship Specialty Start Date End Date Justen Gale MD #2 [facility] [address] [place] [address] PCP - General Family Medicine 6/26/18 David Roberts APRN, CNP #2 [place] [address] Nurse Practitioner Advanced Practice Nurse 01/31/22 Eliel Bliss MD [facility] [address] Consulting Physician Endocrinology 07/01/22 documented as of this encounter
--- OUTSIDE RECORDS SUMMARY | 2024-04-26 07:41 | XMS_ITS | Encounter Summary ---
Author Organization [facility] Address [address] [place] [address] Phone Care Team Providers Care Washhouse Worker Name Role Phone Justen Gale MD Primary Care Provider [phone] David Roberts APRN, EQUIPMENT TECHNICIAN Unavailable [phone] Annel Rod MD Unavailable Reason for Referral * Consult, Test & Initiate Treatment (Routine) - Closed Specialty Diagnoses / Procedures Referred By Elyssa t Referred To Contact Diagnoses Recurrent streptococcal pharyngitis Justen Gale MD #2 [facility] [address] [place] [address] Phone: tel: fax: Marce Yates, DO [address] [facility] [address] Elijah Whiting [facility] [address] [place] [address] Phone: tel: fax: Referral ID Status Reason Start Date Expiration Date Visits Re quested Visits Authorized [id number] Closed 07/01/2023 1 1 Scheduling Instructions Karly [...] Liquid, as needed, Disp: , Rfl: nystatin [id number] UNIT/GM Powder, , Disp: , Rfl: ondansetron [...] to 59.9 in adult (HCC) Thyroid nodule GER FREELANCE Encounter Details Date Type Department Care Team (Late st Contact Info) Description 07/01/2023 Telephone [facility] - Family Medicine [facility] #[address] [place] [address] Justen Gale MD #2 [facility] [address] [place] [address] Social History Tobacco Use Types Packs/Day Years [...] MD - 07/01/2023 9:41 AM CST done GER FREELANCE documented in this encounter Plan of Treatment Upcoming Encounters Date Type Department Care Team (Late Contact Info) Description 05/17/2024 2:45 PM MANAGER FREELANCE Office Visit [facility] - Endocrinology - [place] #2 [place] [address] Annel Rod MD #[address] [address] Scheduled Referrals Name Type Priority Associated Diagnoses Orde r Schedule EXTERNAL ENT REFERRAL Outpatient Referral Routine Recurrent streptococcal pharyngitis Expected: 07/01/2023, Expires: 06/30/2024 documented as of this encounter Visit Diagnoses Diagnosis Recurrent streptococcal pharyngitis- Primary documented in this encounter Additional Health Concerns Assessment Noted Time PHQ-9 Depression Total Score: 8 01/18/20 23 2:24 PM CDT documented as of this encounter Care Teams Washhouse Worker Relationship Specialty Start Date End Date Justen Gale MD #2 [facility] [address] [place] [address] PCP - General Family Medicine 10/17/17 David Roberts, REROLLING MACHINE OPERATOR, EQUIPMENT TECHNICIAN #2 [place] [address] Nurse Practitioner Advanced Practice Nurse 01/31/22 Annel Rod MD #[address] [address] Consulting Physician Endocrinology 07/01/22 documented as of this encounter
--- OUTSIDE RECORDS SUMMARY | 2024-04-26 07:42 | XMS_ITS | Encounter Summary ---
Author Organization [facility] Address [address] [place] [address] Phone Care Team Providers Care Rn Renal Name Role Phone Justen Gale MD Primary Care Provider [phone] David Roberts APRN, BINGO CHECKER Unavailable [phone] Annel Rod MD Unavailable Reason for Visit * Reason Comments Medication Refill Encounter Details Date Type Department Care Team (Late st Contact Info) Description 02/07/2023 Refill [facility] #2 [place] [address] Catrina Quiñonez MD #2 [place] [address] Medication Refill Social History Tobacco Use Types [...] Dept 01/17/23 Office Visit Catrina Quiñonez MD [facility] [place] 09/16/22 Office Visit Pili Elkins APRN, CNP [place] 07/05/22 Office Visit Pili Elkins APRN, CNP [place] 05/02/22 Office Visit Justen Gale MD [facility] [place] 03/03/22 Office Visit Pili Elkisn APRN, NETTA [facility] [place] Showing recent visits within past 365 days and meeting all other requirements Future Appointments No visits were found meeting these conditions. Showing future appointments within next 90 days and meeting all other requirements documented in this encounter Plan of Treatment Upcoming Encounters Date Type Department Care Team (Late st Contact Info) Description 05/17/2024 2:45 PM PLUG CUTTING MACHINE OPERATOR Office Visit [facility] - Endocrinology - [place] [address] [place] [address] Annel Rod MD #2 [address] [facility] [address] [place] [address] documented as of this encounter Visit Diagnoses Not on filedocumented in this encounter Additional Health Concerns Assessment Noted Time PHQ-9 Depression Total Score: 8 01/18/20 23 2:24 PM CDT documented as of this encounter Care Teams Rn Renal Relationship Specialty Start Date End Date Justen Gale MD #2 [place] [facility] [address] [place] [address] PCP - General Family Medicine 10/17/17 David Roberts APRN, NETTA #2 [place] [address] Nurse Practitioner Advanced Practice Nurse 01/31/22 Annel Rod MD #2 [place] [facility] [address] [place] [address] Consulting Physician Endocrinology 07/01/22 documented as of this encounter
--- OUTSIDE RECORDS SUMMARY | 2024-04-26 07:42 | XMS_ITS | Encounter Summary ---
Author Organization [facility] Address [address] [place] [address] Phone Care Team Providers Care Steel Rigger Name Role Phone Justen Gale MD Primary Care Provider [phone] David Roberts APRN, DROP HAMMER OPERATOR HELPER Unavailable [phone] Annel Rod MD Unavailable Reason for Visit * Reason Comments Medication Refill Encounter Details Date Type Department Care Team (Late st Contact Info) Description 04/13/2023 Refill [facility]ocr[facility]ology - [place] #2 [place] [address] Annel Rod MD #[address] [address] Medication Refill Social History Tobacco [...] Jennifer Wang, RN - 04/14/2023 10:00 AM DIRECTOR BIOLOGICS Requested Prescriptions Pending Prescriptions Disp Refills ??? Continuous Blood Gluc Sensor (FreeStyle Eileen 2 Sensor) Misc [Pharmacy Med Name: FREESTYLE EILEEN 2 SENSOR] 6 Each 1 Sig: APPLY 1 SENSOR AND WEAR FOR 14 DAYS TO CHECK BLOOD SUGAR Next appt: 05/30/2023 CTOR BIOLOGICS documented in this encounter Plan of Treatment Upcoming Encounters Date Type Department Care Team (Late st Contact Info) Description 05/17/2024 2:45 PM DIRECTOR BIOLOGICS Office Visit [facility] - Endocrinology [facility] #2 [place] [address] Annel Rod MD #2 [facility] [address] [place] [address] documented as of this encounter Visit Diagnoses Not on filedocumented in this encounter Additional Health Concerns Assessment Noted Time PHQ-9 Depression Total Score: 8 01/18/20 23 2:24 PM CDT documented as of this encounter Care Teams Steel Rigger Relationship Specialty Start Date End Date Justen Gale MD #2 [facility] [address] [place] [address] PCP - General Family Medicine 10/17/17 David Roberts APRN, DROP HAMMER OPERATOR HELPER #2 [place] [address] Nurse Practitioner Advanced Practice Nurse 01/31/22 Annel Rod MD #[address] [address] Consulting Physician Endocrinology 07/01/22 documented as of this encounter
--- OUTSIDE RECORDS SUMMARY | 2024-04-26 07:42 | XMS_ITS | Encounter Summary ---
Author Organization [facility] Address [address] [place] [address] Phone Care Team Providers Care Dispatcher Service Name Role Phone Justen Gale MD Primary Care Provider [phone] David Roberts APRN, BRANCH OFFICE ADMINISTRATOR Unavailable [phone] Annel Rod MD Unavailable Reason for Visit * Reason Onset Date Comments Appointment 02/03/2023 Abdominal Pain 02/03/2023 Encounter Details Date Type Department Care Team (Late st Contact Info) Description 02/03/2023 Nurse Triage [facility] [address] [place] [address] Justen Gale MD #[address] [address] Appointment; Abdominal Pain Social History Tobacco Use [...] st Contact Info) Description 05/17/2024 2:45 PM MINE MOTOR OPERATOR Office Visit [facility] - Endocrinology - [place] #[address] [place] [address] Annel Rod MD #2 [place] [facility] [address] [place] [address] documented as of this encounter Visit Diagnoses Not on filedocumented in this encounter Additional Health Concerns Assessment Noted Time PHQ-9 Depression Total Score: 8 01/18/20 23 2:24 PM CDT documented as of this encounter Care Teams Dispatcher Service Relationship Specialty Start Date End Date Justen Gale MD [facility] [address] [place] [address] PCP - General Family Medicine 10/17/17 David Roberts APRN, NETTA #2 [place] [address] Nurse Practitioner Advanced Practice Nurse 01/31/22 Annel Rod MD #2 [facility] [address] [place] [address] Consulting Physician Endocrinology 07/01/22 documented as of this encounter
--- OUTSIDE RECORDS SUMMARY | 2024-04-26 07:42 | XMS_ITS | Encounter Summary ---
Author Organization [facility] Address [address] [place] [address] Phone Care Team Providers Care Disposal Man Name Role Phone Justen Gale MD Primary Care Provider [phone] David Roberts APRN, FORECLOSURE FIELD INSPECTOR Unavailable [phone] Annel Rod MD Unavailable Encounter Details Date Type Department Care Team (Late st Contact Info) Description 01/16/2023 Telephone [facility] [address] [place] [address] Justen Gale MD #[address] [address] Social History Tobacco Use Types [...] Fall, Head Injury, Depression Outcome: Transfer to medical staff director queue Reason: Getting worse The caller accepted this outcome Caller denied: * Was knocked out (was unconscious) * Acting confused * Neck pain * Trouble walking * Attempted suicide today (injured self or took pills) * Making threats of suicide today documented in this encounter Plan of Treatment Upcoming Encounters Date Type Department Care Team (Late st Contact Info) Description 05/17/2024 2:45 PM CRAFT DEMONSTRATOR Office Visit [facility] - Endocrinology [facility] #2 [place] [address] Annel Rod MD #[address] [address] documented as of this encounter Visit Diagnoses Not on filedocumented in this encounter Additional Health Concerns Assessment Noted Time PHQ-9 Depression Total Score: 0 09/17/19 23 11:00 AM CDT documented as of this encounter Care Teams Disposal Man Relationship Specialty Start Date End Date Justen Gale MD #[address] [address] PCP - General Family Medicine 10/17/17 David Roberts APRN, FORECLOSURE FIELD INSPECTOR #2 [place] [address] Nurse Practitioner Advanced Practice Nurse 01/31/22 Annel Rod MD #[address] [address] Consulting Physician Endocrinology 07/01/22 documented as of this encounter
--- OUTSIDE RECORDS SUMMARY | 2024-04-26 07:42 | XMS_ITS | Encounter Summary ---
Author Organization [facility] Address [address] [place] [address] Phone Care Team Providers Care Metallurgical Lab Technician Name Role Phone Justen Gale MD Primary Care Provider [phone] David Roberts APRN, PROPERTY DEVELOPER Unavailable [phone] Annel Rod MD Unavailable Reason for Visit * Reason Onset Date Comments Dizziness 01/25/2023 Seizure 01/25/2023 Encounter Details Date Type Department Care Team (Late st Contact Info) Description 01/25/2023 Nurse Triage [facility] [address] [place] [address] Justen Gale MD #[address] [address] Dizziness; Seizure Social History Tobacco Use Types [...] 1 day ASSESSMENT: Symptom Description / Location: [place] lips a lot Back of head hurts [...] Protocols used: MUSCLE JERKS - TICS - [id number] documented in this encounter Plan of Treatment Upcoming Encounters Date Type Department Care Team (Late st Contact Info) Description 05/17/2024 2:45 PM FILM PROCESSING SUPERVISOR Office Visit [facility] - Endocrinology - [place] #[address] [place] [address] Annel Rod MD #[address] [address] documented as of this encounter Visit Diagnoses Not on filedocumented in this encounter Additional Health Concerns Assessment Noted Time PHQ-9 Depression Total Score: 8 01/18/20 23 2:24 PM CDT documented as of this encounter Care Teams Metallurgical Lab Technician Relationship Specialty Start Date End Date Justen Gale MD #[address] [address] PCP - General Family Medicine 10/17/17 David Roberts, NEON INSTALLER, PROPERTY DEVELOPER #2 [place] [address] Nurse Practitioner Advanced Practice Nurse 01/31/22 Annel Rod MD #[address] [address] Consulting Physician Endocrinology 07/01/22 documented as of this encounter
--- OUTSIDE RECORDS SUMMARY | 2024-04-26 07:42 | XMS_ITS | Encounter Summary ---
Author Organization [facility] Address [address] [place] [address] Phone Care Team Providers Care Market Risk Analyst Name Role Phone Justen Gale MD Primary Care Provider [phone] David Roberts APRN, MEAT PASSER Unavailable [phone] Annel Rod MD Unavailable Reason for Visit * Reason Onset Date Comments Care Management 11/28/2022 Encounter Details Date Type Department Care Team (Late st Contact Info) Description 11/28/2022 Telephone [facility]ology - [place] #2 [place] [address] Annel Rod MD #[address] [address] Care Management Social History Tobacco [...] st Contact Info) Description 05/17/2024 2:45 PM PRINTER SLOTTER HELPER Office Visit [facility] - Endocrinology - [place] #2 [place] [address] Annel Rod MD #[address] [address] documented as of this encounter Visit Diagnoses Not on filedocumented in this encounter Additional Health Concerns Assessment Noted Time PHQ-9 Depression Total Score: 0 09/17/19 11:00 AM CDT documented as of this encounter Care Teams Market Risk Analyst Relationship Specialty Start Date End Date Justen Gale MD #[address] [address] PCP - General Family Medicine 10/17/17 David Roberts APRN, MEAT PASSER #2 [place] [address] Nurse Practitioner Advanced Practice Nurse 01/31/22 Annel Rod MD #[address] [address] Consulting Physician Endocrinology 07/01/22 documented as of this encounter
--- OUTSIDE RECORDS SUMMARY | 2024-04-26 07:42 | XMS_ITS | Encounter Summary ---
Author Organization [facility] Address [address] [place] [address] Phone Care Team Providers Care Security Operations Engineer Name Role Phone Justen Gale MD Primary Care Provider [phone] David Roberts APRN, INSPECTOR BULLET SLUGS Unavailable [phone] Annel Rod MD Unavailable Reason for Visit * Reason Comments Medication Refill Encounter Details Date Type Department Care Team (Late st Contact Info) Description 03/05/2023 Refill [facility] Family [facility] #2 [place] [address] Pili Elkins APRN, INSPECTOR BULLET SLUGS #[address] [address] Medication Refill Social History Tobacco [...] discontinued on 10/19/2022 by Justen Gale MD KING MACHINE SET UP OPERATOR TOOL documented in this encounter Plan of Treatment Upcoming Encounters Date Type Department Care Team (Late st Contact Info) Description 05/17/2024 2:45 PM CHUCKING MACHINE SET UP OPERATOR TOOL Office Visit [facility] - Endocrinology [facility] #2 [place] [address] Annel Rod MD #[address] [address] documented as of this encounter Visit Diagnoses Diagnosis Essential hypertension Unspecified essential hypertension documented in this encounter Additional Health Concerns Assessment Noted Time PHQ-9 Depression Total Score: 8 01/18/20 23 2:24 PM CDT documented as of this encounter Care Teams Security Operations Engineer Relationship Specialty Start Date End Date Justen Gale MD #[address] [address] PCP - General Family Medicine 10/17/17 David Roberts APRN, NETTA #2 [place] [address] Nurse Practitioner Advanced Practice Nurse 01/31/22 Annel Rod MD #[address] [address] Consulting Physician Endocrinology 07/01/22 documented as of this encounter
--- OUTSIDE RECORDS SUMMARY | 2024-04-26 07:42 | XMS_ITS | Encounter Summary ---
Author Organization [facility] Address [address] [place] [address] Phone Care Team Providers Care Pot Runner Name Role Phone Justen Gale MD Primary Care Provider [phone] David Roberts APRN, MANAGER ERP Unavailable [phone] Annel Rod MD Unavailable Reason for Referral * Consult, Test & Initiate Treatment (Routine) - Closed Specialty Diagnoses / Procedures Referred By Contkristina t Referred To Contact Neurology Diagnoses Concussion without loss of consciousness, subsequent encounter Catrina Quiñonez MD #2 [place] [address] Phone: tel: fax: [facility] Neurology [facility] #2 [place] [address] Phone: tel: fax: Referral ID Status Reason Start Date Expiration Date Visits Re quested Visits Authorized [id number] Closed 01/17/2023 1 1 Scheduling Instructions Karly is being referred for concussion. Please contact patient for scheduling questions or concerns. Reason for Visit * Reason Comments Follow-up Er f/u post concussi on Encounter Details Date Type Department Care Team (Late st Contact Info) Description 01/17/2023 2:20 PM CDT Office Visit [facility] [place] [facility] [place] [address] Catrina Quiñonez MD #2 [place] [address] Concussion without loss of consciousness, subsequent encounter [...] Reported on 01/15/2023 07/05/22 Pili Elkins APRN, MANAGER ERP [facility] and instructions: 09/09/20 Yes Justen Gale MD Myrbetriq 50 MG TABLET SR 24 HR Take 50 mg by mouth daily. Patient not taking: Reported on 05/14/2022 04/27/22 Tyler Smith MD naloxone HCl (Narcan) 4 MG/0.1ML Liquid as needed 05/13/21 Yes Tyler Smith MD nystatin [id number] UNIT/GM Powder 11/09/21 Yes Tyler Smith MD ondansetron (Zofran) 4 MG Tablet Take 1 Tablet by mouth every 8 hours as needed for Nausea - 1st line. 06/21/22 Yes Justen Gale MD OneTouch Delica Lancets 33G [facility] 1 Lancet by Does not apply route [...] really well. Cannot handle light or noise (phlebotomy specialist). Past Medical History Positives Diagnosis Date ??? [...] normal, no murmur, click, rub or gallop Purler strength normal ASSESSMENT/PLAN Diagnoses and all orders [...] st Contact Info) Description 05/17/2024 2:45 PM B2B MANAGED SERVICE SALES EXEC Office Visit [facility] - Endocrinology - [place] #2 [place] [address] Annel Rod MD #[address] [address] Scheduled Referrals Name Type Priority Associated Diagnoses [...] documented as of this encounter Care Teams Pot Runner Relationship Specialty Start Date End Date Justen Gale MD #[address] [address] PCP - General Family Medicine 10/17/17 David Roberts, PAINT FORMULATOR, MANAGER ERP #2 [place] [address] Nurse Practitioner Advanced Practice Nurse 01/31/22 Annel Rod MD #[address] [address] Consulting Physician Endocrinology 07/01/22 documented as of this encounter
--- OUTSIDE RECORDS SUMMARY | 2024-04-26 07:42 | XMS_ITS | Encounter Summary ---
Author Organization [facility] Address [address] [place] [address] Phone Care Team Providers Care Gameroom Technician Name Role Phone Justen Gale MD Primary Care Provider [phone] David Roberts APRN, PART TIME FLEXIBLE CLERK Unavailable [phone] Annel Rod MD Unavailable Reason for Visit * Reason Onset Date Comments Appointment 01/16/2023 Altered Mental Status 01/16/2023 Encounter Details Date Type Department Care Team (Late st Contact Info) Description 01/16/2023 Nurse Triage [facility] - [facility] [place] #2 [place] [address] Justen Gale MD [address] [address] Appointment; Altered Mental Status Social History Tobacco [...] Dept Phone 01/17/2023 2:20 PM Olamide, Catrina [facility] Family [facility] [phone] No assistive services needed. * Telephone Encounter - Jerrica Diggs - 01/16/2023 10:55 AM CDT Symptoms: Vomiting, Headache, Altered Mental Status, Head Injury Outcome: Warm transfer to an emergent RN NOW! Reason: Caused by head injury The caller accepted this outcome documented in this encounter Plan of Treatment Upcoming Encounters Date Type Department Care Team (Late st Contact Info) Description 05/17/2024 2:45 PM ICE BAG ASSEMBLER Office Visit [facility] Endocrinology [facility] #2 [place] [address] Annel Rod MD #[address] [address] documented as of this encounter Visit Diagnoses Not on filedocumented in this encounter Additional Health Concerns Assessment Noted Time PHQ-9 Depression Total Score: 0 09/17/19 23 11:00 AM CDT documented as of this encounter Care Teams Gameroom Technician Relationship Specialty Start Date End Date Justen Gale MD #2 [facility] [address] [place] [address] PCP - General Family Medicine 10/17/17 David Roberts APRN, PART TIME FLEXIBLE CLERK #2 [place] [address] Nurse Practitioner Advanced Practice Nurse 01/31/22 Annel Rod MD #[address] [address] Consulting Physician Endocrinology 07/01/22 documented as of this encounter
--- OUTSIDE RECORDS SUMMARY | 2024-04-26 07:42 | XMS_ITS | Encounter Summary ---
Author Organization [employer] Care Team Providers Care Lining Inserter Name Role Phone Justen Gale MD Primary Care Provider [phone] David Roberts APRN, CNP Unavailable [phone] Annel Rod MD Unavailable Encounter Details Date [...] st Contact Info) Description 05/17/2024 2:45 PM COUNSELING CASE MANAGER Office Visit [facility] - Endocrinology [facility] #2 [place] [address] Annel Rod MD #[address] [address] documented as of this encounter Visit Diagnoses Not on filedocumented in this encounter Additional Health Concerns Assessment Noted Time PHQ-9 Depression Total Score: 8 01/18/20 23 2:24 PM CDT documented as of this encounter Care Teams Lining Inserter Relationship Specialty Start Date End Date Justen Gale MD #2 [facility] [address] [place] [address] PCP - General Family Medicine 10/17/17 David Roberts, SPECIAL DAY CLASS TEACHER, MECHANIC INSULATOR #2 [place] [address] Nurse Practitioner Advanced Practice Nurse 01/31/22 Annel Rod MD #[address] [address] Consulting Physician Endocrinology 07/01/22 documented as of this encounter
--- OUTSIDE RECORDS SUMMARY | 2024-04-26 07:42 | XMS_ITS | Encounter Summary ---
Author Organization [facility] Address [address] [place] [address] Phone Care Team Providers Care Appliance Counselor Name Role Phone Justen Gale MD Primary Care Provider [phone] David Roberts APRN, TECHNICAL SPECIALIST CYTOLOGY Unavailable [phone] Annel Rod MD Unavailable Reason for Visit * Reason Onset Date Comments Fall 12/17/2022 Headache 12/17/2022 Nausea 12/17/2022 Encounter Details Date Type Department Care Team (Late st Contact Info) Description 12/17/2022 Nurse Triage [facility] [address] [place] [address] Justen Gale MD #[address] [address] Fall; Headache; Nausea Social History Tobacco Use [...] ??? Vomiting once or more Protocols used: [id number], HEAD INJURY-A-AH documented in this encounter Plan of Treatment Upcoming Encounters Date Type Department Care Team (Late st Contact Info) Description 05/17/2024 2:45 PM SOCIAL WORK ASSOCIATE Office Visit [facility] - Endocrinology - [place] [address] [place] [address] Annel Rod MD #[address] [phone] documented as of this encounter Visit Diagnoses Not on filedocumented in this encounter Additional Health Concerns Assessment Noted Time PHQ-9 Depression Total Score: 0 09/17/19 11:00 AM CDT documented as of this encounter Care Teams Appliance Counselor Relationship Specialty Start Date End Date Justen Gale MD #2 [facility] [address] [place] [address] PCP - General Family Medicine 10/17/17 David Roberts APRN, TECHNICAL SPECIALIST CYTOLOGY #2 [place] [address] Nurse Practitioner Advanced Practice Nurse 01/31/22 Annel Rod MD #[address] [address] Consulting Physician Endocrinology 07/01/22 documented as of this encounter
--- OUTSIDE RECORDS SUMMARY | 2024-04-26 07:42 | XMS_ITS | Encounter Summary ---
Author Organization [facility] Address [address] [place] [address] Phone Care Team Providers Care Broadband Technician Name Role Phone Justen Gale MD Primary Care Provider [phone] David Roberts APRN, DIETETIC TECHNICIAN REGISTERED Unavailable [phone] Annel Rod MD Unavailable Reason for Visit * Reason Onset Date Comments Shortness of Breath 01/15/2023 Anxiety 01/15/2023 Pain 01/15/2023 Encounter Details Date Type Department Care Team (Late st Contact Info) Description 01/15/2023 [facility] [address] [place] [address] Justen Gale MD #[address] [address] Shortness of Breath; Anxiety; Pain Social History [...] or WORSE than normal Protocols used: BREATHING [id number] documented in this encounter Plan of Treatment Upcoming Encounters Date Type Department Care Team (Late st Contact Info) Description 05/17/2024 2:45 PM PRODUCTION HARDENER Office Visit [facility] - Endocrinology - [place] #[address] [place] [address] Annel Rod MD #2 [place] [facility] [address] [place] [address] documented as of this encounter Visit Diagnoses Not on filedocumented in this encounter Additional Health Concerns Assessment Noted Time PHQ-9 Depression Total Score: 0 09/17/19 23 11:00 AM CDT documented as of this encounter Care Teams Broadband Technician Relationship Specialty Start Date End Date Justen Gale MD #2 [place] [facility] [address] [place] [address] PCP - General Family Medicine 10/17/17 David Roberts APRN, NETTA #[address] [place] [address] Nurse Practitioner Advanced Practice Nurse 01/31/22 Annel Rod MD #[address] [address] Consulting Physician Endocrinology 07/01/22 documented as of this encounter
--- OUTSIDE RECORDS SUMMARY | 2024-04-26 07:42 | XMS_ITS | Encounter Summary ---
Author Organization [facility] Address [address] [place] [address] Phone Care Team Providers Care Mail Carriers Supervisor Name Role Phone Justen Gale MD Primary Care Provider [phone] David Roberts APRN, GOODYEAR WELTER Unavailable [phone] Annel Rod MD Unavailable Reason for Visit * Reason Comments Medication Refill Encounter Details Date Type Department Care Team (Late st Contact Info) Description 03/05/2023 Refill [facility] - [place] #2 [place] [address] Annel Rod MD #[address] [address] Medication Refill Social History Tobacco [...] - 03/07/2023 12:42 AM CST Rx sent L FINANCIAL SPECIALIST * Telephone Encounter - Jennifer Wang, RN - 03/06/2023 9:15 AM LEGAL FINANCIAL SPECIALIST Requested Prescriptions Pending Prescriptions Disp Refills ??? HumaLOG KwikPen 100 UNIT/ML Solution Pen-injector [Pharmacy Med Name: HUMALOG 100 U/ML KWIK PENINJ 3ML] 30 mL 1 Sig: INJECT 22 UNITS UNDER SKIN BEFORE EACH MEAL.; ISF OF 1:15 OF IF>150MG/DL; MAX DAILY DOSE OF100 UNITS Next appt: 04/11/2023 L FINANCIAL SPECIALIST documented in this encounter Plan of Treatment Upcoming Encounters Date Type Department Care Team (Late st Contact Info) Description 05/17/2024 2:45 PM LEGAL FINANCIAL SPECIALIST Office Visit [facility] #2 [place] [address] Annel Rod MD #[address] [address] documented as of this encounter Visit Diagnoses Not on filedocumented in this encounter Additional Health Concerns Assessment Noted Time PHQ-9 Depression Total Score: 8 01/18/20 23 2:24 PM CDT documented as of this encounter Care Teams Mail Carriers Supervisor Relationship Specialty Start Date End Date Justen Gale MD #2 [facility] [address] [place] [address] PCP - General Family Medicine 10/17/17 David Roberts APRN, NETTA #2 [facility] [place] [address] Nurse Practitioner Advanced Practice Nurse 01/31/22 Annel Rod MD #[address] [address] Consulting Physician Endocrinology 07/01/22 documented as of this encounter
--- OUTSIDE RECORDS SUMMARY | 2024-04-26 07:42 | XMS_ITS | Encounter Summary ---
Author Organization [facility] Address [address] [place] [address] Phone Care Team Providers Care Recreation Attendant Supervisor Name Role Phone Justen Gale MD Primary Care Provider [phone] Davdi Roberts APRN, DISTRIBUTED ENERGY SYSTEMS CONSULTANT Unavailable [phone] Annel Rod MD Unavailable Reason for Visit * Reason Comments Medication Refill Encounter Details Date Type Department Care Team (Late st Contact Info) Description 03/02/2023 Refill [facility] Family Medicine [facility] #2 [place] [phone] Justen Gale MD #[address] [address] Medication Refill Social History Tobacco Use Types [...] Tamika Villarreal RN - 03/02/2023 8:51 AM GROCERY MANAGER Medication failed the protocol, provider to review [...] Dept 01/17/23 Office Visit Catrina Quiñonez MD [facility] 09/16/22 Office Visit Pili Elkins APRN, NETTA [facility] [place] 07/05/22 Office Visit Pili Elkins APRN, NETTA [facility] [place] 05/02/22 Office Visit Justen Gale MD [facility] 03/03/22 Office Visit Pili Elkins APRN, NETTA [facility] Showing recent visits within past 365 days and meeting all other requirements Future Appointments No visits were found meeting these conditions. Showing future appointments within next 90 days and meeting all other requirements ERY MANAGER documented in this encounter Plan of Treatment Upcoming Encounters Date Type Department Care Team (Late st Contact Info) Description 05/17/2024 2:45 PM GROCERY MANAGER Office Visit [facility] - [place] [address] [place] [address] Annel Rod MD #[address] [phone] documented as of this encounter Visit Diagnoses Not on filedocumented in this encounter Additional Health Concerns Assessment Noted Time PHQ-9 Depression Total Score: 8 01/18/20 23 2:24 PM CDT documented as of this encounter Care Teams Recreation Attendant Supervisor Relationship Specialty Start Date End Date Justen Gale MD #2 [facility] [address] [place] [address] PCP - General Family Medicine 10/17/17 David Roberts, BARN OPERATOR, DISTRIBUTED ENERGY SYSTEMS CONSULTANT #2 [place] [address] Nurse Practitioner Advanced Practice Nurse 01/31/22 Annel Rod MD #2 [facility] [address] [place] [address] Consulting Physician Endocrinology 07/01/22 documented as of this encounter
--- OUTSIDE RECORDS SUMMARY | 2024-04-26 07:42 | XMS_ITS | Encounter Summary ---
Author Organization [facility] Address [address] [place] [address] Phone Care Team Providers Care Ceo And Founder Name Role Phone Justen Gale MD Primary Care Provider [phone] David Roberts APRN, BEAM PRESS OPERATOR Unavailable [phone] Annel Rod MD Unavailable Encounter Details Date Type Department Care Team (Late st Contact Info) Description 11/08/2022 Telephone [facility] - [place] #2 [place] [address] Annel Rod MD #[address] [address] Social History Tobacco Use Types [...] st Contact Info) Description 05/17/2024 2:45 PM INJECTOR ASSEMBLER Office Visit [facility] - [place] #2 [place] [address] Annel Rod MD #[address] [place] [address] documented as of this encounter Visit Diagnoses Not on filedocumented in this encounter Additional Health Concerns Assessment Noted Time PHQ-9 Depression Total Score: 0 09/17/19 23 11:00 AM CDT documented as of this encounter Care Teams Ceo And Founder Relationship Specialty Start Date End Date Justen Gale MD #2 [facility] [address] [place] [address] PCP - General Family Medicine 10/17/17 David Roberts, CARTOGRAPHIC AIDE, BEAM PRESS OPERATOR #2 [place] [address] Nurse Practitioner Advanced Practice Nurse 01/31/22 Annel Rod MD #2 [facility] [address] [place] [address] Consulting Physician Endocrinology 07/01/22 documented as of this encounter
--- OUTSIDE RECORDS SUMMARY | 2024-04-26 07:42 | XMS_ITS | Encounter Summary ---
Author Organization [facility] Address [address] [place] [address] Phone Care Team Providers Care Gas Turbine Powerplant Mechanic Helper Name Role Phone Justen Gale MD Primary Care Provider [phone] David Roberts APRN, TRADEMARK ATTORNEY Unavailable [phone] Annel Rod MD Unavailable Reason for Visit * Reason Onset Date Comments Nausea 03/05/2023 Fatigue 03/05/2023 Generalized Weakness 03/05/2023 Encounter Details Date Type Department Care Team (Late st Contact Info) Description 03/05/2023 Nurse Triage [facility] [address] [place] [address] Justen Gale MD #[address] [address] Nausea; Fatigue; Generalized Weakness Social History Tobacco [...] Johanna Almonte RN - 03/05/2023 11:12 PM DIRECT CUSTOMER SERVICE REPRESENTATIVE SITUATION: Weakness/Fatigue/Nausea BACKGROUND: Patient calling after hours, [...] not worse.) Protocols used: WEAKNESS (GENERALIZED) AND [id number] CT CUSTOMER SERVICE REPRESENTATIVE documented in this encounter Plan of Treatment Upcoming Encounters Date Type Department Care Team (Late st Contact Info) Description 05/17/2024 2:45 PM DIRECT CUSTOMER SERVICE REPRESENTATIVE Office Visit [facility] End[facility] #2 [place] [address] Annel Rod MD #[address] [address] documented as of this encounter Visit Diagnoses Not on filedocumented in this encounter Additional Health Concerns Assessment Noted Time PHQ-9 Depression Total Score: 8 01/18/20 23 2:24 PM CDT documented as of this encounter Care Teams Gas Turbine Powerplant Mechanic Helper Relationship Specialty Start Date End Date Justen Gale MD #[address] [address] PCP - General Family Medicine 10/17/17 David Roberts, APPAREL DESIGNER, TRADEMARK ATTORNEY #2 [place] [address] Nurse Practitioner Advanced Practice Nurse 01/31/22 Annel Rod MD #[address] [address] Consulting Physician Endocrinology 07/01/22 documented as of this encounter
--- OUTSIDE RECORDS SUMMARY | 2024-04-26 07:42 | XMS_ITS | Encounter Summary ---
Author Organization [facility] Address [address] [place] [address] Phone Care Team Providers Care Line Maintenance Name Role Phone Justen Gale MD Primary Care Provider [phone] David Roberts APRN, DOCTOR OF DENTAL MEDICINE Unavailable [phone] Annel Rod MD Unavailable Reason for Visit * Reason Comments Medication Refill Encounter Details Date Type Department Care Team (Late st Contact Info) Description 02/07/2023 Refill [facility] - Family Medicine [facility] #2 [place] [address] Pili Elkins APRN, DOCTOR OF DENTAL MEDICINE #[address] [address] Medication Refill Social History Tobacco [...] st Contact Info) Description 05/17/2024 2:45 PM FOOD SAFETY FIELD SPECIALIST Office Visit [facility] - Endocrinology [facility] #2 [place] [address] Annel Rod MD #2 [facility] [address] [place] [address] documented as of this encounter Visit Diagnoses Diagnosis Essential hypertension Unspecified essential hypertension documented in this encounter Additional Health Concerns Assessment Noted Time PHQ-9 Depression Total Score: 8 01/18/20 23 2:24 PM CDT documented as of this encounter Care Teams Line Maintenance Relationship Specialty Start Date End Date Justen Gale MD #2 [facility] [address] [place] [address] PCP - General Family Medicine 10/17/17 David Roberts APRN, DOCTOR OF DENTAL MEDICINE #2 [place] [address] Nurse Practitioner Advanced Practice Nurse 01/31/22 Annel Rod MD #[address] [address] Consulting Physician Endocrinology 07/01/22 documented as of this encounter
--- OUTSIDE RECORDS SUMMARY | 2024-04-26 07:42 | XMS_ITS | Encounter Summary ---
Author Organization [facility] Address [address] [place] [address] Phone Care Team Providers Care Sewer Tapper Name Role Phone Justen Gale MD Primary Care Provider [phone] David Roberts APRN, CHEMICAL PROCESS EQUIPMENT OPERATOR Unavailable [phone] Annel Rod MD Unavailable Reason for Visit * Reason Onset Date Comments Medication Refill 03/06/2023 Encounter Details Date Type Department Care Team (Late st Contact Info) Description 03/06/2023 MyChart RX Renewal [facility] #2 [place] [address] Annel Rod MD #[address] [address] Medication Renewal Reviewed Social History [...] - 03/07/2023 10:28 PM CST Rx sent MANAGER documented in this encounter Plan of Treatment Upcoming Encounters Date Type Department Care Team (Late st Contact Info) Description 05/17/2024 2:45 PM LOAN MANAGER Office Visit [facility] - Endocrinology - [place] #2 [place] [address] Annel Rod MD #[address] [place] [address] documented as of this encounter Visit Diagnoses Not on filedocumented in this encounter Additional Health Concerns Assessment Noted Time PHQ-9 Depression Total Score: 8 01/18/20 23 2:24 PM CDT documented as of this encounter Care Teams Sewer Tapper Relationship Specialty Start Date End Date Justen Gale MD #2 [facility] [address] [place] [address] PCP - General Family Medicine 10/17/17 David Roberts APRN, CHEMICAL PROCESS EQUIPMENT OPERATOR #2 [place] [address] Nurse Practitioner Advanced Practice Nurse 01/31/22 Annel Rod MD #[address] [place] [address] Consulting Physician Endocrinology 07/01/22 documented as of this encounter
--- OUTSIDE RECORDS SUMMARY | 2024-04-26 07:42 | XMS_ITS | Encounter Summary ---
Author Organization [facility] Address [address] [facility] [place] [address] Phone Care Team Providers Care Agency Owner Name Role Phone Justen Gale MD Primary Care Provider [phone] David Roberts APRN, CONSULTING SERVICES PROJECT MANAGER Unavailable [phone] Annel Rod MD Unavailable Reason for Visit * Reason Onset Date Comments High Blood Sugar 11/28/2022 Encounter Details Date Type Department Care Team (Late st Contact Info) Description 11/28/2022 [facility] [address] [place] [address] Annel Rod MD #[address] [address] High Blood Sugar Social History [...] Department or that she could call her Candy Maker Dr Rod's office for after hours assistance [...] st Contact Info) Description 05/17/2024 2:45 PM DIAGNOSTIC CARDIAC SONOGRAPHER Office Visit [facility] - Endocrinology - [place] #2 [place] [address] Annel Rod MD #2 [facility] [address] [place] [address] documented as of this encounter Visit Diagnoses Not on filedocumented in this encounter Additional Health Concerns Assessment Noted Time PHQ-9 Depression Total Score: 0 09/17/19 23 11:00 AM CDT documented as of this encounter Care Teams Agency Owner Relationship Specialty Start Date End Date Justen Gale MD #[address] [address] PCP - General Family Medicine 10/17/17 David Roberts, FOOD AND BEVERAGE SERVER, CONSULTING SERVICES PROJECT MANAGER #2 [place] [address] Nurse Practitioner Advanced Practice Nurse 01/31/22 Annel Rod MD #[address] [address] Consulting Physician Endocrinology 07/01/22 documented as of this encounter
--- OUTSIDE RECORDS SUMMARY | 2024-04-26 07:42 | XMS_ITS | Encounter Summary ---
Author Organization [facility] Address [address] [place] [address] Phone Care Team Providers Care Branch Manager Name Role Phone Justen Gale MD Primary Care Provider [phone] David Roberts APRN, OUTSOLES CHANNEL OPENER Unavailable [phone] Annel Rod MD Unavailable Reason for Visit * Reason Comments Medication Refill Encounter Details Date Type Department Care Team (Late st Contact Info) Description 11/21/2022 Refill [facility] End[facility]ology - [place] #2 [place] [address] Annel Rod MD #[address] [address] Medication Refill Social History Tobacco [...] st Contact Info) Description 05/17/2024 2:45 PM DEAF AND HARD OF HEARING TEACHER Office Visit [facility] - Endocrinology [facility] #2 [place] [address] Annel Rod MD #[address] [address] documented as of this encounter Visit Diagnoses Not on filedocumented in this encounter Additional Health Concerns Assessment Noted Time PHQ-9 Depression Total Score: 0 09/17/19 23 11:00 AM CDT documented as of this encounter Care Teams Branch Manager Relationship Specialty Start Date End Date Justen Gale MD #[address] [facility] [address] [place] [address] PCP - General Family Medicine 10/17/17 David Roberts APRN, NETTA #2 [place] [address] Nurse Practitioner Advanced Practice Nurse 01/31/22 Annel Rod MD #[address] [address] Consulting Physician Endocrinology 07/01/22 documented as of this encounter
--- OUTSIDE RECORDS SUMMARY | 2024-04-26 07:42 | XMS_ITS | Encounter Summary ---
Author Organization [facility] Address [address] [place] [address] Phone Care Team Providers Care Mobile Patrol Officer Name Role Phone Justen Gale MD Primary Care Provider [phone] David Roberts APRN, SEED PACKER Unavailable [phone] Annel Rod MD Unavailable Reason for Visit * Reason Onset Date Comments Advice Only 01/28/2023 Encounter Details Date Type Department Care Team (Late st Contact Info) Description 01/28/2023 Telephone [facility] [address] [place] [address] Justen Gale MD #[address] [address] Advice Only Social History Tobacco Use Types [...] Telephone Encounter - Nayla Blanco RN - 01/28/2023 10:39 AM CDT [...] st Contact Info) Description 05/17/2024 2:45 PM PLUMBING MANAGER Office Visit [facility] Endocrinology - [place] #2 [place] [address] Annel Rod MD #[address] [facility] [address] [place] [address] documented as of this encounter Visit Diagnoses Not on filedocumented in this encounter Additional Health Concerns Assessment Noted Time PHQ-9 Depression Total Score: 8 01/18/20 23 2:24 PM CDT documented as of this encounter Care Teams Mobile Patrol Officer Relationship Specialty Start Date End Date Justen Gale MD #[address] [facility] [address] [place] [address] PCP - General Family Medicine 10/17/17 David Roberts APRN, SEED PACKER #[address] [place] [address] Nurse Practitioner Advanced Practice Nurse 01/31/22 Annel Rod MD #[address] [address] Consulting Physician Endocrinology 07/01/22 documented as of this encounter
--- OUTSIDE RECORDS SUMMARY | 2024-04-26 07:43 | XMS_ITS | Encounter Summary ---
Author Organization [facility] Address [address] [place] [address] Phone Care Team Providers Care Pets Salesperson Name Role Phone Justen Gale MD Primary Care Provider [phone] David Roberts APRN, COMMUNITY HEALTH OUTREACH WORKER Unavailable [phone] Annel Rod MD Unavailable Reason for Visit * Reason Comments Medication Refill Encounter Details Date Type Department Care Team (Late st Contact Info) Description 10/24/2022 Refill [facility] - Family Medicine [facility] #2 [place] [address] Pili Elkins APRN, COMMUNITY HEALTH OUTREACH WORKER #[address] [address] Medication Refill Social History Tobacco [...] st Contact Info) Description 05/17/2024 2:45 PM MILIEU THERAPIST Office Visit [facility] - Endocrinology [facility] #2 [place] [address] Annel Rod MD #[address] [address] documented as of this encounter Visit Diagnoses Diagnosis Essential hypertension Unspecified essential hypertension documented in this encounter Additional Health Concerns Assessment Noted Time PHQ-9 Depression Total Score: 0 09/17/19 23 11:00 AM CDT documented as of this encounter Care Teams Pets Salesperson Relationship Specialty Start Date End Date Justen Gale MD #[address] [address] PCP - General Family Medicine 10/17/17 Davdi Roberts APRN, NETTA #2 [place] [address] Nurse Practitioner Advanced Practice Nurse 01/31/22 Annel Rod MD #[address] [address] Consulting Physician Endocrinology 07/01/22 documented as of this encounter
--- OUTSIDE RECORDS SUMMARY | 2024-04-26 07:43 | XMS_ITS | Encounter Summary ---
Author Organization [facility] Address [address] [place] [address] Phone Care Team Providers Care Toe Puller Name Role Phone Justen Gale MD Primary Care Provider [phone] David Roberts APRN, LOG DECK TENDER Unavailable [phone] Annel Rod MD Unavailable Reason for Visit * Reason Comments Medication Refill Encounter Details Date Type Department Care Team (Late st Contact Info) Description 07/12/2022 Refill [facility] - Family Medicine [facility] #2 [place] [address] Justen Gale MD #[address] [address] Medication Refill Social History Tobacco Use Types [...] 07/05/22 Office Visit Pili Elkins APRN, NETTA [facility] [place] 05/02/22 Office Visit Justen Gale MD [facility] [place] 03/03/22 Office Visit Pili Elkins APRN, LOG DECK TENDER [facility] [place] 01/03/22 Office Visit Dannielle Berg PAC [facility] [place] 12/07/21 Office Visit Pili Elkins APRN, LOG DECK TENDER [facility] [place] 11/09/21 Office Visit Pili Elkins APRN, NETTA [facility] [place] 10/08/21 Office Visit Angelito Alegria APRN, NETTA [facility] [place] 08/30/21 Office [facility] Show[facility] recent visits within past 365 days and meeting all other requirements Future Appointments No visits were found meeting these conditions. Showing future appointments within next 90 days and meeting all other requirements documented in this encounter Plan of Treatment Upcoming Encounters Date Type Department Care Team (Late st Contact Info) Description 05/17/2024 2:45 PM HOSPITALIST Office Visit [facility] - Endocrinology - [place] #2 [place] [address] Annel Rod MD #2 [facility] [address] [place] [address] documented as of this encounter Visit Diagnoses Not on filedocumented in this encounter Additional Health Concerns Assessment Noted Time PHQ-9 Depression Total Score: 0 07/21/19 21 3:00 PM CDT documented as of this encounter Care Teams Toe Puller Relationship Specialty Start Date End Date Justen Gale MD #2 [facility] [address] [place] [address] PCP - General Family Medicine 10/17/17 David Roberts, CANDLE MOLDER HAND, LOG DECK TENDER #2 [facility] [place] [address] Nurse Practitioner Advanced Practice Nurse 01/31/22 Annel Rod MD #2 [facility] [address] [place] [address] Consulting Physician Endocrinology 07/01/22 documented as of this encounter
--- OUTSIDE RECORDS SUMMARY | 2024-04-26 07:43 | XMS_ITS | Encounter Summary ---
Author Organization [facility] Care Team Providers Care Complaint Evaluation Officer Name Role Phone Justen Gale MD Primary Care Provider [phone] David Roberts APRN, MANAGER SOCIAL WORK Unavailable [phone] Annel Rod MD Unavailable Encounter Details Date [...] st Contact Info) Description 05/17/2024 2:45 PM CRA Office Visit [facility] - Endocrinology [facility] #2 [place] [address] Annel Rod MD #[address] [address] documented as of this encounter Visit Diagnoses Not on filedocumented in this encounter Additional Health Concerns Assessment Noted Time PHQ-9 Depression Total Score: 0 09/17/19 11:00 AM CDT documented as of this encounter Care Teams Complaint Evaluation Officer Relationship Specialty Start Date End Date Justen Gale MD #2 [facility] [address] [place] [address] PCP - General Family Medicine 10/17/17 David Roberts, TRANSFER AGENT, MANAGER SOCIAL WORK #2 [place] [address] Nurse Practitioner Advanced Practice Nurse 01/31/22 Annel Rod MD #[address] [address] Consulting Physician Endocrinology 07/01/22 documented as of this encounter
--- OUTSIDE RECORDS SUMMARY | 2024-04-26 07:43 | XMS_ITS | Encounter Summary ---
Author Organization [facility] Address [address] [place] [address] Phone Care Team Providers Care Die Reamer Name Role Phone Justen Gale MD Primary Care Provider [phone] David Roberts APRN, HOPS FARMWORKER Unavailable [phone] Annel Rod MD Unavailable Reason for Visit * Reason Onset Date Comments Itching 09/14/2022 Encounter Details Date Type Department Care Team (Late st Contact Info) Description 09/14/2022 [facility] [address] [place] [address] Justen Gale MD #[address] [address] Itching Social History Tobacco Use Types Packs/Day [...] itching Care Advice Protocols used: ITCHING - [id number] documented in this encounter Plan of Treatment Upcoming Encounters Date Type Department Care Team (Late st Contact Info) Description 05/17/2024 2:45 PM PATIENT SCHEDULING COORDINATOR Office Visit [facility] - Endocrinology [facility]3] #2 [place] [address] Annel Rod MD #[address] [address] documented as of this encounter Visit Diagnoses Not on filedocumented in this encounter Additional Health Concerns Assessment Noted Time PHQ-9 Depression Total Score: 0 07/21/19 21 3:00 PM CDT documented as of this encounter Care Teams Die Reamer Relationship Specialty Start Date End Date Justen Gale MD #[address] [address] PCP - General Family Medicine 10/17/17 David Roberts APRN, HOPS FARMWORKER #2 [place] [address] Nurse Practitioner Advanced Practice Nurse 01/31/22 Annel Rod MD #[address] [address] Consulting Physician Endocrinology 07/01/22 documented as of this encounter
--- OUTSIDE RECORDS SUMMARY | 2024-04-26 07:43 | XMS_ITS | Encounter Summary ---
Author Organization [facility] Address [address] [place] [address] Phone Care Team Providers Care Logistician Name Role Phone Justen Gale MD Primary Care Provider [phone] David Roberts APRN, TATTOOER Unavailable [phone] Annel Rod MD Unavailable Reason for Visit * Reason Comments Preventive Care Patient is here for a pap. She said she thinks she may also be getting a UTI, she has a lot of pressure and going to the bathroom every 15 minutes. Encounter Details Date Type Department Care Team (Late st Contact Info) Description 07/05/2022 1:15 PM CDT Office Visit [facility] - Family Medicine [facility] #2 [place] [address] Pili Elkins APRN, TATTOOER #[address] [address] Increased urinary frequency (Primary Dx); [...] Reported on 05/14/2022 Tyler Smith MD nystatin [id number] UNIT/GM Powder APPLY TO THE AFFECTED AREA [...] from the original note were not included. [facility] [address]2 [facility] [address] Dept: [phone] Dept Loc: [phone] Loc Patient: Karly Marques : 1955 Sex: [...] not taking: Reported on 05/14/2022) ??? nystatin [id number] UNIT/GM Powder APPLY TO THE AFFECTED AREA [...] Tablet 0 ??? OneTouch Delica Lancets 33G [facility] Lancet by Does not apply route [...] Type Start Date End Date Comment Verified Fly Raiser Lockstitch Ceftriaxone Allergy 14-Sep-2017 Severity: High Reactions: Anaphylaxis Kerry Selby, COMPLIANCE NURSE Cephalosporins Allergy 22-Mar-2017 Severity: High Reactions: Anaphylaxis Yolande Davis, COMPLIANCE NURSE Dermatological Products, [facility] Allergy 12-Oct-2021 Severity: High Reactions: Hives, Itching [...] Unknown 16-Feb-2022 Severity: Medium Reactions: Rash Selwyn Delraosa, RMA Metoclopramide Hcl Allergy 17-Oct-2017 Reactions: Unknown Suchyta, Yolande C, COMPLIANCE NURSE Nitrofurantoin Allergy 12-Oct-2021 Severity: Medium Reactions: Itching Jennifer Ray RN Oxycodone Allergy 17-Oct-2017 Reactions: Unknown Suchyta, Yolande C, COMPLIANCE NURSE Pregabalin Allergy 29-Oct-2020 Severity: Low Reactions: Other [...] nursing note reviewed. Exam conducted with a library media assistant present (onel BERMUDEZ). Constitutional: General: She is [...] examination with abnormal finding - PATHOLOGY CYTOLOGY UNDER CUTTER - BREAST & PELVIC EXAM - PAP [...] Contact Info) Description 05/17/2024 2:45 PM SLEEVE TURNER Office Visit [facility] - Endocrinology - [place] #2 [place] [phone] Annel Rod MD #[address] [phone] documented as of this encounter Procedures Procedure Name Priority Date/Time Associated Diagnosis Comments POCT UA AUTOMATED W/O MICRO Routine 07/05/2022 2:25 PM CDT Increased urinary frequency VAGINITIS SCREEN, MOLECULAR Routine 07/05/2022 2:24 PM CDT Vaginal irritation PATHOLOGY CYTOLOGY UNDER CUTTER Routine 07/05/2022 2:24 PM CDT Encounter for [...] 07/05/2022 2:25 PM CDT us Pili Elkins SPECIAL EDUCATION INCLUSION TEACHER, TATTOOER POINT OF CARE TESTIN G (MANUAL) Final Result * HUMAN PAPILLOMA VIRUS (HPV) (07/05/2022 2:24 PM CDT) HPV OTHER HIGH RISK TYPES, PCR NEGATIVE NEGATIVE 07/06/2022 2:37 PM CDT [facility] Comment: The following Other High Risk types [...] 16 NEGATIVE NEGATIVE 07/06/2022 2:37 PM CDT [facility] Comment: A negative high-risk HPV result does [...] 18 NEGATIVE NEGATIVE 07/06/2022 2:37 PM CDT [facility] Comment: A negative high-risk HPV result does [...] OR DIAGNOSTIC SCREENING 07/06/2022 2:37 PM CDT [facility] Other Non-Phlebotomy Collection / Unknown 07/05/2022 2:24 PM CDT 07/05/2022 2:24 PM CDT Narrative [facility] - 07/06/2022 2:37 PM CDT Performed by Real-Time Polymerase Chain Reaction (PCR) on the Ronnie Vinay 4800. This assay has been validated for use with post-aliquot samples from the [employer] T5000 processor. Pili Elkins APRN, CNP LAB SEND OUTS Deann bowman Result [facility] [address] [place] [address], [facility] [address] [place] [address] * PATHOLOGY CYTOLOGY UNDER CUTTER (07/05/2022 2:24 PM CDT) SPECIMEN ADEQUACY A scant cellular component is noted. Scant cellularity is likely due to presence of lubricant. 07/08/2022 8:38 AM CDT [facility] DESCRIPTIVE DIAGNOSIS NEGATIVE FOR INTRAEPITHELIAL LESIONS OR MALIGNANCY. 07/08/2022 8:38 AM CDT [facility] R FINDINGS Atrophic hormonal pattern. 07/08/2022 8:38 AM CDT [facility] Automated Examination This sample was not evaluated by the automated imaging and review system ([employer]meetingprep Imaging System, [employer], [place], [place] due to technical and / or biologic factor(s). The case was screened, reviewed, and finalized by a analytical strategist and / or pathologist. 07/08/2022 8:38 AM CDT [facility] Disclaimer The PAP smear is a screening [...] unless clinically indicated. 07/08/2022 8:38 AM CDT [facility] Other (Cervix/Endocerv ix) Non-Phlebotomy Collection / Unknown 07/05/2022 2:24 PM CDT 07/05/2022 2:24 PM CDT Pili Elkins APRN, CNP PATHOLOGY/CYTOLOGY O RDERABLES Final Result [facility] [address] [place] [address], [place] * VAGINITIS SCREEN, MOLECULAR (07/05/2022 2:24 PM CDT) TRICHOMONAS Negative Negative 07/05/2022 10:54 PM CDT [facility] BACTERIAL VAGINOSIS Negative Negative 07/05/2022 10:54 PM CDT [facility] PABLITO Negative Negative 07/05/2022 10:54 PM CDT [facility] Other VAGINAL STRUCTURE / Unknown Non-Phlebotomy Collection / Unknown 07/05/2022 2:24 PM CDT 07/05/2022 2:24 PM CDT Pili Elkins APRN, CNP LAB SEND OUT GENETIC Final Result [facility] [address] [place] [address], [place] * CULTURE, URINE (07/05/2022 2:24 PM CDT) CULTURE RESULTS ESCHERICHIA COLI 07/07/2022 3:34 PM CDT [facility] CULTURE RESULTS ALSO MIXED GROWTH OF DISTAL URETHRA CONTAMINANTS. 07/07/2022 3:34 PM CDT [facility] Culture URINE SPECIMEN COLLECTION, CLEAN CATCH / [...] I >=320 mcg/ml: Resistant us Pili Elkins SPECIAL EDUCATION INCLUSION TEACHER, TATTOOER MICROBIOLOGY - GENER AL ORDERABLES Final Result [facility] [address] [place] [address], [place] documented in this encounter Visit Diagnoses [...] documented as of this encounter Care Teams Logistician Relationship Specialty Start Date End Date Justen Gale MD #2 [facility] [address] [place] [address] PCP - General Family Medicine 10/17/17 David Roberts, SPECIAL EDUCATION INCLUSION TEACHER, TATTOOER [address]2 [place] [address] Nurse Practitioner Advanced Practice Nurse 01/31/22 Annel Rod MD #2 [facility] [address] [place] [address] Consulting Physician Endocrinology 07/01/22 documented as of this encounter
--- OUTSIDE RECORDS SUMMARY | 2024-04-26 07:43 | XMS_ITS | Encounter Summary ---
Author Organization [facility] Care Team Providers Care Mail Delivery Supervisor Name Role Phone Justen Gale MD Primary Care Provider [phone] David Roberts APRN, PROTOHISTORIAN Unavailable [phone] Annel Rod MD Unavailable Encounter Details Date [...] ( Contact Info) Description 05/17/2024 2:45 PM WATER CARTER Office Visit [facility] - Endocrinology - [place] [address] [place] [address] Annel Rod MD [address] [address] documented as of this encounter Visit Diagnoses Not on filedocumented in this encounter Additional Health Concerns Assessment Noted Time PHQ-9 Depression Total Score: 0 07/21/19 21 3:00 PM CDT documented as of this encounter Care Teams Mail Delivery Supervisor Relationship Specialty Start Date End Date Justen Gale MD [address] [address] PCP - General Family Medicine 10/17/17 David Roberts, ROLL FORMER, PROTOHISTORIAN [address] [place] [address] Nurse Practitioner Advanced Practice Nurse 01/31/22 Annel Rod MD #[address] [address] Consulting Physician Endocrinology 07/01/22 documented as of this encounter
--- OUTSIDE RECORDS SUMMARY | 2024-04-26 07:43 | XMS_ITS | Encounter Summary ---
Author Organization [facility] Address [address] [place] [address] Phone Care Team Providers Care Child Abuse Worker Name Role Phone Justen Gale MD Primary Care Provider [phone] David Roberts APRN, WINDOWS SYSTEMS ADMINISTRATOR Unavailable [phone] Reason for Visit * Reason Onset Date Comments Medication Management 06/21/2022 Encounter Details Date Type Department Care Team (Late st Contact Info) Description 06/21/2022 Telephone [facility] - Family Medicine [facility] #2 [place] [address] Justen Gale MD #[address] [address] Medication Management Social History Tobacco Use Types [...] CST LVM that medication was called in. CULTURAL RESEARCH TECHNICIAN * Telephone Encounter - Justen Gale MD - 06/21/2022 2:14 PM CST Please call Called in nausea medicine CULTURAL RESEARCH TECHNICIAN documented in this encounter Plan of Treatment Upcoming Encounters Date Type Department Care Team (Late st Contact Info) Description 05/17/2024 2:45 PM AGRICULTURAL RESEARCH TECHNICIAN Office Visit [facility] - Endocrinology - [place] #2 [place] [address] Annel Rod MD #2 [facility] [address] [place] [address] documented as of this encounter Visit Diagnoses Not on filedocumented in this encounter Additional Health Concerns Assessment Noted Time PHQ-9 Depression Total Score: 0 07/21/19 21 3:00 PM CDT documented as of this encounter Care Teams Child Abuse Worker Relationship Specialty Start Date End Date Justen Gale MD #[facility] [address] [place] [address] PCP - General Family Medicine 10/17/17 David Roberts APRN, WINDOWS SYSTEMS ADMINISTRATOR #2 [place] [address] Nurse Practitioner Advanced Practice Nurse 01/31/22 documented as of this encounter
--- OUTSIDE RECORDS SUMMARY | 2024-04-26 07:43 | XMS_ITS | Encounter Summary ---
Author Organization [facility] Address [address] [place] [address] Phone Care Team Providers Care Studio Operations Manager Name Role Phone Justen Gale MD Primary Care Provider [phone] David Roberts APRN, ELECTRIC SPOT WELDER Unavailable [phone] Annel Rod MD Unavailable Reason for Visit * Reason Comments Medication Refill Encounter Details Date Type Department Care Team (Late st Contact Info) Description 07/14/2022 Refill [facility] - Family Medicine [facility] #2 [place] [address] Justen Gale MD #[address] [address] Medication Refill Social History Tobacco Use Types [...] st Contact Info) Description 05/17/2024 2:45 PM RECEIVING INSPECTOR Office Visit [facility] - Endocrinology [facility] #2 [place] [address] Annel Rod MD #2 [facility] [address] [place] [address] documented as of this encounter Visit Diagnoses Not on filedocumented in this encounter Additional Health Concerns Assessment Noted Time PHQ-9 Depression Total Score: 0 07/21/19 21 3:00 PM CDT documented as of this encounter Care Teams Studio Operations Manager Relationship Specialty Start Date End Date Justen Gale MD #2 [facility] [address] [place] [address] PCP - General Family Medicine 10/17/17 David Roberts APRN, ELECTRIC SPOT WELDER #2 [place] [address] Nurse Practitioner Advanced Practice Nurse 01/31/22 Annel Rod MD #[address] [address] Consulting Physician Endocrinology 07/01/22 documented as of this encounter
--- OUTSIDE RECORDS SUMMARY | 2024-04-26 07:43 | XMS_ITS | Encounter Summary ---
Author Organization [facility] Address [address] [place] [address] Phone Care Team Providers Care Milk Treater Name Role Phone Justen Gale MD Primary Care Provider [phone] David Roberts APRN, REHAB THERAPIST Unavailable [phone] Annel Rod MD Unavailable Reason for Visit * Reason Comments Medication Refill Encounter Details Date Type Department Care Team (Late st Contact Info) Description 07/12/2022 Refill [facility] - Endocr[facility]ology - [place] #2 [place] [address] Annel Rod MD #[address] [address] Medication Refill Social History Tobacco [...] st Contact Info) Description 05/17/2024 2:45 PM RETINA SUBSPECIALIST Office Visit [facility] - Endocrinology - [place] #[address] [place] [address] Annel Rod MD #[address] [address] documented as of this encounter Visit Diagnoses Not on filedocumented in this encounter Additional Health Concerns Assessment Noted Time PHQ-9 Depression Total Score: 0 07/21/19 21 3:00 PM CDT documented as of this encounter Care Teams Milk Treater Relationship Specialty Start Date End Date Justen Gale MD #[address] [address] PCP - General Family Medicine 10/17/17 David Roberts APRN, REHAB THERAPIST #2 [place] [address] Nurse Practitioner Advanced Practice Nurse 01/31/22 Annel Rod MD #[address] [phone] Consulting Physician Endocrinology 07/01/22 documented as of this encounter
--- OUTSIDE RECORDS SUMMARY | 2024-04-26 07:43 | XMS_ITS | Encounter Summary ---
Author Organization [facility] Care Team Providers Care Employee Wellness/Fitness Coordinator Name Role Phone Justen Gale MD Primary Care Provider [phone] David Roberts APRN, DIRECTOR OF CODING Unavailable [phone] Annel Rod MD Unavailable Encounter Details Date [...] ( Contact Info) Description 05/17/2024 2:45 PM JD EDWARDS CONSULTANT Office Visit [facility] - Endocrinology - [place] #[address] [place] [address] Annel Rod MD #[address] [address] documented as of this encounter Visit Diagnoses Not on filedocumented in this encounter Additional Health Concerns Assessment Noted Time PHQ-9 Depression Total Score: 0 07/21/19 21 3:00 PM CDT documented as of this encounter Care Teams Employee Wellness/Fitness Coordinator Relationship Specialty Start Date End Date Justen Gale MD [address] [address] PCP - General Family Medicine 10/17/17 David Roberts, ONLINE COMMUNICATIONS SPECIALIST, DIRECTOR OF CODING #[address] [place] [address] Nurse Practitioner Advanced Practice Nurse 01/31/22 Annel Rod MD #[address] [address] Consulting Physician Endocrinology 07/01/22 documented as of this encounter
--- OUTSIDE RECORDS SUMMARY | 2024-04-26 07:43 | XMS_ITS | Encounter Summary ---
Author Organization [facility] Address [address] [place] [address] Phone Care Team Providers Care Resident Caregiver Name Role Phone Justen Gale MD Primary Care Provider [phone] David Roberts APRN, EVALUATION ASSISTANT Unavailable [phone] Annel Rod MD Unavailable Reason for Visit * Reason Onset Date Comments Fever 07/11/2022 Urinary Pain 07/11/2022 Urinary Frequency 07/11/2022 Encounter Details Date Type Department Care Team (Late st Contact Info) Description 07/11/2022 Nurse Triage [facility] [address] [place] [address] Justen Gale MD #[address] [address] Fever; Urinary Pain; Urinary Frequency Social History [...] antibiotics course. ASSESSMENT: Symptom Description / Location: [place] chills this morning when woke up, comes [...] Dept Phone 07/11/2022 3:45 PM Justen Gale [facility] - Family Medicine - [place] [phone] 07/13/2022 1:30 PM Annel Rod [facility] - Endocrinology - [place] [phone] First positive answer recorded, all responses to [...] st Contact Info) Description 05/17/2024 2:45 PM MEDICAL HOSPITAL SALES Office Visit [facility] - Endocrinology [facility] #2 [place] [address] Annel Rod MD #[address] [address] documented as of this encounter Visit Diagnoses Not on filedocumented in this encounter Additional Health Concerns Assessment Noted Time PHQ-9 Depression Total Score: 0 07/21/19 3:00 PM CDT documented as of this encounter Care Teams Resident Caregiver Relationship Specialty Start Date End Date Justen Gale MD #[address] [address] PCP - General Family Medicine 10/17/17 David Roberts APRN, EVALUATION ASSISTANT #2 [place] [address] Nurse Practitioner Advanced Practice Nurse 01/31/22 Annel Rod MD #[address] [address] Consulting Physician Endocrinology 07/01/22 documented as of this encounter
--- OUTSIDE RECORDS SUMMARY | 2024-04-26 07:43 | XMS_ITS | Encounter Summary ---
Author Organization [facility] Address [address] [place] [address] Phone Care Team Providers Care Senior Search Marketing Analyst Name Role Phone Justen Gale MD Primary Care Provider [phone] David Roberst APRN, ELECTRIC GAS APPLIANCES DEMONSTRATOR Unavailable [phone] Annel Rod MD Unavailable Reason for Visit * Reason Onset Date Comments Nausea 10/24/2022 Dizziness 10/24/2022 Abdominal Pain 10/24/2022 Encounter Details Date Type Department Care Team (Late st Contact Info) Description 10/24/2022 Nurse Triage [facility] [address] [place] [address] Justen Gale MD #[address] [address] Nausea; Dizziness; Abdominal Pain Social History Tobacco [...] st Contact Info) Description 05/17/2024 2:45 PM GAMMA RAY OPERATOR Office Visit [facility] - Endocrinology - [place] #2 [facility] [place] [address] Annel Rod MD #[address] [place] [address] documented as of this encounter Visit Diagnoses Not on filedocumented in this encounter Additional Health Concerns Assessment Noted Time PHQ-9 Depression Total Score: 0 09/17/19 23 11:00 AM CDT documented as of this encounter Care Teams Senior Search Marketing Analyst Relationship Specialty Start Date End Date Justen Gale MD #[address] [place] [address] PCP - General Family Medicine 10/17/17 David Roberts, LINE PATROLLER, ELECTRIC GAS APPLIANCES DEMONSTRATOR #2 [place] [address] Nurse Practitioner Advanced Practice Nurse 01/31/22 Annel Rod MD #[address] [place] [address] Consulting Physician Endocrinology 07/01/22 documented as of this encounter
--- OUTSIDE RECORDS SUMMARY | 2024-04-26 07:43 | XMS_ITS | Encounter Summary ---
Author Organization [facility] Address [address] [place] [address] [place] [address] Phone Care Team Providers Care Telephone Service Representative Name Role Phone Justen Gale MD Primary Care Provider [phone] David Roberts APRN, GENERAL ROAD FOREMAN Unavailable [phone] Annel Rod MD Unavailable Reason for Visit * Reason Onset Date Comments Medication Refill 11/02/2022 Encounter Details Date Type Department Care Team (Late st Contact Info) Description 11/02/2022 Refill [facility]ology - [place] #[address] [place] [address] Annel Rod MD #[address] [address] Medication Refill Social History Tobacco [...] st Contact Info) Description 05/17/2024 2:45 PM DATA MANAGEMENT CONSULTANT Office Visit [facility] - Endocrinology [facility] #2 [place] [address] Annel Rod MD #2 [facility] [address] [place] [address] documented as of this encounter Visit Diagnoses Not on filedocumented in this encounter Additional Health Concerns Assessment Noted Time PHQ-9 Depression Total Score: 0 09/17/19 23 11:00 AM CDT documented as of this encounter Care Teams Telephone Service Representative Relationship Specialty Start Date End Date Justen Gale MD #2 [facility] [address] [place] [address] PCP - General Family Medicine 10/17/17 David Rboerts APRN, GENERAL ROAD FOREMAN #2 [place] [address] Nurse Practitioner Advanced Practice Nurse 01/31/22 Annel Rod MD #2 [facility] [address] [address] Consulting Physician Endocrinology 07/01/22 documented as of this encounter
--- OUTSIDE RECORDS SUMMARY | 2024-04-26 07:43 | XMS_ITS | Encounter Summary ---
Author Organization [facility] Address [address] [place] [address] Phone Care Team Providers Care Lapping Machine Operator Name Role Phone Justen Gale MD Primary Care Provider [phone] David Roberts APRN, MINE FOREMAN Unavailable [phone] Annel Rod MD Unavailable Reason for Visit * Reason Comments Medication Refill Encounter Details Date Type Department Care Team (Late st Contact Info) Description 08/30/2022 Refill [facility] #2 [place] [address] Justen Gale MD #[address] [address] Medication Refill Social History Tobacco Use Types [...] 07/05/22 Office Visit Pili Elkins APRN, CNP [facility] [place] 05/02/22 Office Visit Justen Gale MD [facility] [place] 03/03/22 Office Visit Pili Elkins APRN, NETTA [facility] [place] 01/03/22 Office Visit Daninelle Berg PAC [facility] [place] 12/07/21 Office Visit Pili Elkins APRN, NETTA [facility] [place] 11/09/21 Office Visit Pili Elkins APRN, NETTA [facility] [place] 10/08/21 Office Visit Angelito Alegria APRN, CNP [facility] [place] 08/30/21 Office Visit Justen Gale MD [facility] Showing recent visits within past 365 days and meeting all other requirements Future Appointments No visits were found meeting these conditions. Showing future appointments within next 90 days and meeting all other requirements documented in this encounter Plan of Treatment Upcoming Encounters Date Type Department Care Team (Late st Contact Info) Description 05/17/2024 2:45 PM HEAD CASHIER Office Visit [facility] - Endocrinology - [place] #2 [place] [address] Annel Rod MD #2 [facility] [address] [place] [address] documented as of this encounter Visit Diagnoses Not on filedocumented in this encounter Additional Health Concerns Assessment Noted Time PHQ-9 Depression Total Score: 0 07/21/19 21 3:00 PM CDT documented as of this encounter Care Teams Lapping Machine Operator Relationship Specialty Start Date End Date Justen Gale MD #2 [facility] [address] [place] [address] PCP - General Family Medicine 10/17/17 David Roberts APRN, NETTA #2 [place] [address] Nurse Practitioner Advanced Practice Nurse 01/31/22 Annel Rod MD #2 [place] [address] [place] [address] Consulting Physician Endocrinology 07/01/22 documented as of this encounter
--- OUTSIDE RECORDS SUMMARY | 2024-04-26 07:43 | XMS_ITS | Encounter Summary ---
Author Organization [facility] Address [address] [place] [address] Phone Care Team Providers Care Field Artillery Fire Control Man Name Role Phone Justen Gale MD Primary Care Provider [phone] David Roberts APRN, WEB MARKETING STRATEGIST Unavailable [phone] Annel Rod MD Unavailable Reason for Visit * Reason Onset Date Comments Results 09/16/2022 Encounter Details Date Type Department Care Team (Late st Contact Info) Description 09/16/2022 Telephone [facility] [address] [place] [address] Justen Gale MD #[address] [address] Results Social History Tobacco Use Types Packs/Day [...] st Contact Info) Description 05/17/2024 2:45 PM BROOM STITCHER Office Visit [facility] #2 [place] [address] Annel Rod MD [address] [address] documented as of this encounter Visit Diagnoses Not on filedocumented in this encounter Additional Health Concerns Assessment Noted Time PHQ-9 Depression Total Score: 0 09/17/19 23 11:00 AM CDT documented as of this encounter Care Teams Field Artillery Fire Control Man Relationship Specialty Start Date End Date Justen Gale MD #[address] [address] PCP - General Family Medicine 10/17/17 David Roberts, GENERAL PURCHASING AGENT, WEB MARKETING STRATEGIST #2 [place] [address] Nurse Practitioner Advanced Practice Nurse 01/31/22 Annel Rod MD #[address] [address] Consulting Physician Endocrinology 07/01/22 documented as of this encounter
--- OUTSIDE RECORDS SUMMARY | 2024-04-26 07:43 | XMS_ITS | Encounter Summary ---
Author Organization [facility] Address [address] [place] [address] Phone Care Team Providers Care Director Skills Name Role Phone Justen Gale MD Primary Care Provider [phone] David Roberts APRN, BRAZER HELPER INDUCTION Unavailable [phone] Annel Rod MD Unavailable Reason for Visit * Reason Onset Date Comments High Blood Sugar 08/11/2022 Encounter Details Date Type Department Care Team (Late st Contact Info) Description 08/11/2022 [facility] [address] [place] [address] Justen Gale MD #[address] [address] High Blood Sugar Social History Tobacco Use [...] to ED now, Patient will go to [facility] in [place]. Patient will have someone drive. Allergies, medications, [...] st Contact Info) Description 05/17/2024 2:45 PM SAND MILL OPERATOR FACING SAND Office Visit [facility] - Endocrinology - [place] #2 [place] [address] Annel Rod MD #[address] [address] documented as of this encounter Visit Diagnoses Not on filedocumented in this encounter Additional Health Concerns Assessment Noted Time PHQ-9 Depression Total Score: 0 07/21/19 21 3:00 PM CDT documented as of this encounter Care Teams Director Skills Relationship Specialty Start Date End Date Justen Gale MD #2 [facility] [address] [place] [address] PCP - General Family Medicine 10/17/17 David Roberts APRN, BRAZER HELPER INDUCTION #2 [place] [address] Nurse Practitioner Advanced Practice Nurse 01/31/22 Annel Rod MD #2 [facility] [address] [place] [address] Consulting Physician Endocrinology 07/01/22 documented as of this encounter
--- OUTSIDE RECORDS SUMMARY | 2024-04-26 07:43 | XMS_ITS | Encounter Summary ---
Author Organization [facility] Address [address] [place] [address] Phone Care Team Providers Care Packing Machine Feeder Name Role Phone Justen Gale MD Primary Care Provider [phone] David Roberts APRN, LABORER VINEYARD Unavailable [phone] Annel Rod MD Unavailable Reason for Visit * Reason Onset Date Comments Bleeding/Bruising 07/05/2022 Coagulation Disorder 07/05/2022 Gum Problem 07/05/2022 Encounter Details Date Type Department Care Team (Late st Contact Info) Description 07/05/2022 Nurse Triage [facility] [address] [place] [address] Justen Gale MD #[address] [address] Bleeding/Bruising; Coagulation Disorder; Gum Problem Social History [...] bleeding disorder (e.g., thrombocytopenia) Protocols used: MOUTH [id number] documented in this encounter Plan of Treatment Upcoming Encounters Date Type Department Care Team (Late st Contact Info) Description 05/17/2024 2:45 PM ROCK MASON [facility] Visit [facility] #2 [place] [address] Annel Rod MD #[address] [address] documented as of this encounter Visit Diagnoses Not on filedocumented in this encounter Additional Health Concerns Assessment Noted Time PHQ-9 Depression Total Score: 0 07/21/19 21 3:00 PM CDT documented as of this encounter Care Teams Packing Machine Feeder Relationship Specialty Start Date End Date Justen Gale MD #[address] [address] PCP - General Family Medicine 10/17/17 David Roberts APRN, LABORER VINEYARD #2 [place] [address] Nurse Practitioner Advanced Practice Nurse 01/31/22 Annel Rod MD #[address] [address] Consulting Physician Endocrinology 07/01/22 documented as of this encounter
--- OUTSIDE RECORDS SUMMARY | 2024-04-26 07:43 | XMS_ITS | Encounter Summary ---
Author Organization [facility] Address [address] [place] [address] Phone Care Team Providers Care Telephonic Nurse Name Role Phone Justen Gale MD Primary Care Provider [phone] David Roberts APRN, TUMBLER TENDER Unavailable [phone] Annel Rod MD Unavailable Reason for Visit * Reason Onset Date Comments Medication Reaction 10/19/2022 Encounter Details Date Type Department Care Team (Late st Contact Info) Description 10/19/2022 Telephone [facility] [address] [place] [address] Justen Gale MD #[address] [address] Medication Reaction Social History Tobacco Use Types [...] CDT Symptom: Medication Reaction Outcome: Transfer to area loss prevention manager queue Reason: Caller denied all higher acuity questions The caller accepted this outcome Caller denied: * Trouble breathing * Trouble swallowing documented in this encounter Plan of Treatment Upcoming Encounters Date Type Department Care Team (Late st Contact Info) Description 05/17/2024 2:45 PM PROPAGATOR LABORER [facility] Visit [facility] #2 [place] [address] Annel Rod MD #[address] [address] documented as of this encounter Visit Diagnoses Not on filedocumented in this encounter Additional Health Concerns Assessment Noted Time PHQ-9 Depression Total Score: 0 09/17/19 23 11:00 AM CDT documented as of this encounter Care Teams Telephonic Nurse Relationship Specialty Start Date End Date Justen Gale MD #[address] [address] PCP - General Family Medicine 10/17/17 David Roberts, PHOTONICS ENGINEER, TUMBLER TENDER #2 [place] [address] Nurse Practitioner Advanced Practice Nurse 01/31/22 Annel Rod MD #[address] [address] Consulting Physician Endocrinology 07/01/22 documented as of this encounter
--- OUTSIDE RECORDS SUMMARY | 2024-04-26 07:43 | XMS_ITS | Encounter Summary ---
Author Organization [facility] Address [address] [place] [address] Phone Care Team Providers Care Industrial Laborer Name Role Phone Justen Gale MD Primary Care Provider [phone] David Roberts APRN, AIRCRAFT SALES REPRESENTATIVE Unavailable [phone] Annel Rod MD Unavailable Reason for Visit * Reason Comments ED Follow-up Patient is here for an urgent care follow up for itching. They prescribed her a medication but she hasn't taken it because she's afraid it'll make her itch more. Encounter Details Date Type Department Care Team (Late st Contact Info) Description 09/16/2022 11:00 AM CDT Office Visit [facility] - Family Medicine [facility] #2 [place] [address] Pili Elkins APRN, AIRCRAFT SALES REPRESENTATIVE #[address] [address] Pruritus (Primary Dx) Discharge Disposition: [...] Tablet Take 25 mg by mouth. 06/08/22 Tyler Smith MD Lantus SoloStar 100 [...] times daily. 07/05/22 Yes Pili Elkins APRN, AIRCRAFT SALES REPRESENTATIVE [facility]. Devices [facility] Supply and instructions: 09/09/20 Yes Justen Gale MD Myrbetriq 50 MG TABLET SR 24 HR Take 50 mg by mouth daily. Patient not taking: Reported on 05/14/2022 04/27/22 Tyler Smith MD naloxone HCl (Narcan) 4 MG/0.1ML Liquid as needed 05/13/21 Tyler Smith MD nystatin 570433 UNIT/GM Powder APPLY TO THE AFFECTED AREA [...] Dannielle Berg, JAMAR Cedeñouch Delica Lancets 33G [facility] 1 Lancet by Does not apply route [...] Planning and HCC * Pili Elkins APRN, AIRCRAFT SALES REPRESENTATIVE - 09/16/2022 11:00 AM CDT [facility] #2 [facility] [address] Dept: [phone] Dept Loc: [phone] Loc Patient: Karly Marques : 1955 Sex: [...] daily. 180 Tablet 3 ??? Misc. Devices [facility] Supply and instructions: 1 Each 0 ??? Myrbetriq 50 MG TABLET SR 24 HR Take 50 mg by mouth daily. (Patient not taking: Reported on 05/14/2022) ??? naloxone HCl (Narcan) 4 MG/0.1ML Liquid as needed ??? nystatin 371441 UNIT/GM Powder APPLY TO THE AFFECTED AREA [...] st Contact Info) Description 05/17/2024 2:45 PM GLASS LOADING EQUIPMENT TENDER Office Visit [facility] - Endocrinology - [place] #[address] [place] [address] Annel Rod MD #[address] [place] [address] documented as of this encounter Results * (ABNORMAL) CMP (COMPREHENSIVE METABOLIC PANEL) (09/16/2022 11:50 AM CDT) Pathologist [facility] SODIUM 139 136 - 144 mmol/L 09/16/2022 1:32 PM CDT [facility] POTASSIUM 3.5 3.5 - 5.1 mmol/L 09/16/2022 1:32 PM T [facility] CHLORIDE 101 100 - 110 mmol/L 09/16/2022 1:32 PM [facility] CO2, VENOUS 28 22 - 32 mmol/L 09/16/2022 1:32 PM CDT [facility] ANION GAP 13.5 8.0 - 20.0 mmol/L 09/16/2022 1:32 PM [facility] GLUCOSE 164(H) 70 - 99 mg/dL 09/16/2022 1:32 PM T [facility] BUN 21 8 - 23 mg/dL 09/16/2022 1:32 PM [facility] CREATININE, BLOOD 0.80 0.60 - 1.10 mg/dL 09/16/2022 1:32 PM [facility] BUN/CREATININE RATIO 26(H) 12 - 20 ratio 09/16/2022 1:32 PM [facility] TOTAL PROTEIN 8.1 6.0 - 8.3 g/dL 09/16/2022 1:32 PM [facility] ALBUMIN 3.9 3.5 - 5.2 g/dL 09/16/2022 1:32 PM [facility] Comment: The colormetric methods used for the determination of Albumin may lead to falsely elevated test results in patients suffering from renal failure or insufficiency due to interference with other proteins. A/G RATIO 0.9(L) 1.0 - 2.0 09/16/2022 1:32 PM T [facility] CALCIUM 10.0 8.9 - 10.3 mg/dL 09/16/2022 1:32 PM [facility] T BILI 0.6 <=1.2 mg/dL 09/16/2022 1:32 PM [facility] SGOT (AST) 20 <=32 U/L 09/16/2022 1:32 PM CDT [facility] SGPT (ALT) 21 <=41 U/L 09/16/2022 1:32 PM CDT [facility] ALKALINE PHOSPHATASE 94 35 - 105 U/L 09/16/2022 1:32 PM CDT [facility] IS THE PATIENT REQUIRED TO BE FASTING? No 09/16/2022 1:32 PM CDT [facility] GFR, ESTIMATED >60 >=60 09/16/2022 1:32 PM CDT [facility] Comment: Creatinine Clearance is the preferred criteria for selecting drug dose adjustments in renally impaired patients. ??The GFR is provided as additional pertinent clinical information. GFR is reported in mL/min/1.73 sq m. Calculation based on the Chronic Kidney Disease Epidemiology Collaboration (CKD- EPI) equation refit without adjustment for race. GFR, EST. >60 >=60 023 1:32 PM CDT [facility] GFR, EST. NONAFRICAN >60 >=60 09/16/2022 1:32 PM CDT [facility] Blood Venipuncture / Unknown 09/16/2022 11:50 AM CDT 09/16/2022 12:29 PM CDT us Pili Elkins APRN, NETTA CHEMISTRY ORDERABLES Final Result [facility] #[address] [place] [address] documented in this encounter Visit Diagnoses Diagnosis Pruritus- Primary Unspecified pruritic disorder documented in this encounter Additional Health Concerns Assessment Noted Time PHQ-9 Depression Total Score: 0 09/17/19 23 11:00 AM CDT documented as of this encounter Care Teams Industrial Laborer Relationship Specialty Start Date End Date Justen Gale MD #[address] [address] PCP - General Family Medicine 10/17/17 David Roberts APRN, NETTA #2 [place], [place] [address] Nurse Practitioner Advanced Practice Nurse 01/31/22 Annel Rod MD [facility] [address] Consulting Physician Endocrinology 07/01/22 documented as of this encounter
--- OUTSIDE RECORDS SUMMARY | 2024-04-26 07:43 | XMS_ITS | Encounter Summary ---
Author Organization [facility] Address [address] [place] [address] Phone Care Team Providers Care Saturator Name Role Phone Justen Gale MD Primary Care Provider [phone] David Roberts APRN, CUSTOMER SERVICER Unavailable [phone] Annel Rod MD Unavailable Reason for Visit * Reason Comments Medication Refill Encounter Details Date Type Department Care Team (Late st Contact Info) Description 09/22/2022 Refill [facility] #2 [place] [address] Justen Gale MD #[address] [address] Medication Refill Social History Tobacco Use Types [...] PM CDT Medication(s) refilled and signed per [facility] Chronic Medication Refill Standing Order [...] 09/16/22 Office Visit Pili Elkins APRN, NETTA [facility] [place] 07/05/22 Office Visit [facility] Elkins APRN, NETTA [facility] [place] 05/02/22 Office Visit Justen Gale MD [facility] [place] 03/03/22 Office Visit Pili Elkins APRN, NETTA [facility] [place] 01/03/22 Office Visit Dannielle Berg PAC [facility] [place] Showing recent visits within past [...] st Contact Info) Description 05/17/2024 2:45 PM DEOILING MACHINE OPERATOR Office Visit [facility] - Endocrinology - [place] #[address] [place] [address] Annel Rod MD #[address] [facility] [address] [place] [address] documented as of this encounter Visit Diagnoses Not on filedocumented in this encounter Additional Health Concerns Assessment Noted Time PHQ-9 Depression Total Score: 0 09/17/19 23 11:00 AM CDT documented as of this encounter Care Teams Saturator Relationship Specialty Start Date End Date Justen Gale MD #[address] [address] PCP - General Family Medicine 10/17/17 David Roberts, SHANK SCOURER, CUSTOMER SERVICER #[address] [place] [address] Nurse Practitioner Advanced Practice Nurse 01/31/22 Annel Rod MD #[address] [address] Consulting Physician Endocrinology 07/01/22 documented as of this encounter
--- OUTSIDE RECORDS SUMMARY | 2024-04-26 07:43 | XMS_ITS | Encounter Summary ---
Author Organization [facility] Address [address] [place] [address] Phone Care Team Providers Care Clinical Cytogenetics Director Name Role Phone Justen Gale MD Primary Care Provider [phone] David Roberts APRN, BUFFING MACHINE TENDER Unavailable [phone] Reason for Visit * Reason Onset Date Comments Shortness of Breath 06/20/2022 Encounter Details Date Type Department Care Team (Late st Contact Info) Description 06/20/2022 Nurse Triage [facility] [address] [place] [address] Justen Gale MD #[address] [address] Shortness of Breath Social History [...] nausea to pharmacy until seen? Please advise. DING WHEEL OPERATOR * Telephone Encounter - Mahsa Blackburn RN - 06/20/2022 10:13 PM GRINDING WHEEL OPERATOR SITUATION: Breathing difficulty, fatigue, nausea BACKGROUND: States [...] or WORSE than normal Protocols used: BREATHING [id number] Meds/allergies and pharmacy verified. Verbalized understanding of all care advice given. Patient states she will go be seen at [facility] ED now. DING WHEEL OPERATOR documented in this encounter Plan of Treatment Upcoming Encounters Date Type Department Care Team (Late st Contact Info) Description 05/17/2024 2:45 PM GRINDING WHEEL OPERATOR Office Visit [facility] - [facility] #2 [place] [address] Annel Rod MD #2 [facility] [address] [place] [address] documented as of this encounter Visit Diagnoses Not on filedocumented in this encounter Additional Health Concerns Assessment Noted Time PHQ-9 Depression Total Score: 0 07/21/19 21 3:00 PM CDT documented as of this encounter Care Teams Clinical Cytogenetics Director Relationship Specialty Start Date End Date Justen Gale MD #2 [facility] [address] [place] [address] PCP - General Family Medicine 10/17/17 David Roberts APRN, BUFFING MACHINE TENDER #2 [place] [address] Nurse Practitioner Advanced Practice Nurse 01/31/22 documented as of this encounter
--- OUTSIDE RECORDS SUMMARY | 2024-04-26 07:43 | XMS_ITS | Encounter Summary ---
Author Organization [facility] Address [address] [place] [address] Phone Care Team Providers Care Teacher Vocal Name Role Phone Justen Gale MD Primary Care Provider [phone] David Roberts APRN, TECHNICAL CLERK Unavailable [phone] Annel Rod MD Unavailable Encounter Details Date Type Department Care Team (Late st Contact Info) Description 10/19/2022 Telephone [facility] #2 [place] [address] Justen Gale MD #[address] [address] Social History Tobacco Use Types Packs/Day Years [...] st Contact Info) Description 05/17/2024 2:45 PM ASSEMBLER HYDRAULIC BACKHOE Office Visit [facility] - Endocrinology - [place] #2 [place] [address] Annel Rod MD #[address] [address] documented as of this encounter Visit Diagnoses Not on filedocumented in this encounter Additional Health Concerns Assessment Noted Time PHQ-9 Depression Total Score: 0 09/17/19 23 11:00 AM CDT documented as of this encounter Care Teams Teacher Vocal Relationship Specialty Start Date End Date Justen Gale MD #[address] [address] PCP - General Family Medicine 10/17/17 David Roberts APRN, TECHNICAL CLERK #2 [place] [address] Nurse Practitioner Advanced Practice Nurse 01/31/22 Annel Rod MD #[address] [address] Consulting Physician Endocrinology 07/01/22 documented as of this encounter
--- OUTSIDE RECORDS SUMMARY | 2024-04-26 07:43 | XMS_ITS | Encounter Summary ---
Author Organization [facility] Address [address] [place] [address] Phone Care Team Providers Care Messenger Copy Name Role Phone Justen Gale MD Primary Care Provider [phone] David Roberts APRN, SOLAR TECH Unavailable [phone] Annel Rod MD Unavailable Reason for Visit * Reason Comments Follow-up Diabetes Mellitus a1c Encounter Details Date Type Department Care Team (Late st Contact Info) Description 09/14/2022 1:30 PM CDT Office Visit [facility] - Endocrinology - [place] #2 [place] [address] Annel Rod MD #[address] [address] Type 2 diabetes mellitus with [...] severe low blood sugar events requiring third democrat intervention. Unfortunately, the patient did not bring [...] (A) 09/14/2022 08/16/22 Basic metabolic panel Order: [id number] Ref Range & Units 4 wk ago [...] 8.5 - 10.3 mg/dL 10.3 Resulting Agency [facility] Specimen Collected: 08/16/22 15:10 Last Resulted: 08/16/22 [...] st Contact Info) Description 05/17/2024 2:45 PM MULTI CRAFT MAINTENANCE TECHNICIAN Office Visit [facility] - Endocrinology - [place] #2 [place] [address] Annel Rod MD #[address] [address] documented as of this encounter Procedures Procedure [...] documented as of this encounter Care Teams Messenger Copy Relationship Specialty Start Date End Date Justen Gale MD #2 [facility] [address] [place] [address] PCP - General Family Medicine 10/17/17 David Roberts APRN, SOLAR TECH #2 [place] [address] Nurse Practitioner Advanced Practice Nurse 01/31/22 Annel Rod MD #[address] [address] Consulting Physician Endocrinology 07/01/22 documented as of this encounter
--- OUTSIDE RECORDS SUMMARY | 2024-04-26 07:43 | XMS_ITS | Encounter Summary ---
Author Organization [facility] Address [address] [place] [address] Phone Care Team Providers Care Hydrotechnical Specialist Name Role Phone Justen Gale MD Primary Care Provider [phone] David Roberts APRN, WEB UI DEVELOPER Unavailable [phone] Annel Rod MD Unavailable Reason for Visit * Reason Onset Date Comments Results 07/07/2022 Medication Management 07/07/2022 Encounter Details Date Type Department Care Team (Late st Contact Info) Description 07/07/2022 Telephone [facility] #2 [place] [address] Kodak Elkins APRN, WEB UI DEVELOPER #[address] [address] Results; Medication Management Social History [...] she would try that. Please sent to [facility] in [place] * Telephone Encounter - Kodak Elkins APRN, [...] st Contact Info) Description 05/17/2024 2:45 PM WIRE MESH KNITTER Office Visit [facility] - Endocrinology - [place] #2 [place] [address] Annel Rod MD #2 [facility] [address] [place] [address] documented as of this encounter Visit Diagnoses Diagnosis Acute cystitis without hematuria- Primary Acute cystitis documented in this encounter Additional Health Concerns Assessment Noted Time PHQ-9 Depression Total Score: 0 07/21/19 21 3:00 PM CDT documented as of this encounter Care Teams Hydrotechnical Specialist Relationship Specialty Start Date End Date Justen Gale MD #[address] [address] PCP - General Family Medicine 10/17/17 David Roberts, GOLF CLUB HEAD INSPECTOR, WEB UI DEVELOPER #2 [place] [address] Nurse Practitioner Advanced Practice Nurse 01/31/22 Annel Rod MD #[address] [address] Consulting Physician Endocrinology 07/01/22 documented as of this encounter
--- OUTSIDE RECORDS SUMMARY | 2024-04-26 07:43 | XMS_ITS | Encounter Summary ---
Author Organization [facility] Address [address] [place] [address] Phone Care Team Providers Care Bean Weigher Name Role Phone Justen Gale MD Primary Care Provider [phone] David Roberts APRN, CHEMIST ENZYMES Unavailable [phone] Annel Rod MD Unavailable Reason for Visit * Reason Onset Date Comments Results 07/07/2022 Encounter Details Date Type Department Care Team (Late st Contact Info) Description 07/07/2022 Telephone [facility] #2 [facility] [address] Justen Gale MD #[address] [address] Results Social History Tobacco Use Types Packs/Day [...] st Contact Info) Description 05/17/2024 2:45 PM PRINT FINISHER Office Visit [facility] - Endocrinology - [place] #2 [place] [address] Annel Rod MD #[address] [address] documented as of this encounter Visit Diagnoses Not on filedocumented in this encounter Additional Health Concerns Assessment Noted Time PHQ-9 Depression Total Score: 0 07/21/19 21 3:00 PM CDT documented as of this encounter Care Teams Bean Weigher Relationship Specialty Start Date End Date Justen Gale MD #[address] [address] PCP - General Family Medicine 10/17/17 David Roberts APRN, CHEMIST ENZYMES #2 [place] [address] Nurse Practitioner Advanced Practice Nurse 01/31/22 Annel Rod MD #[address] [phone] Consulting Physician Endocrinology 07/01/22 documented as of this encounter
--- OUTSIDE RECORDS SUMMARY | 2024-04-26 07:44 | XMS_ITS | Encounter Summary ---
Author Organization [facility] Address [address] [place] [address] Phone Care Team Providers Care Drywall Professional Name Role Phone Justen Gale MD Primary Care Provider [phone] David Roberts APRN, PEARL DIGGER Unavailable [phone] Reason for Referral * Radiology Services (Routine) - Closed Specialty Diagnoses / Procedures Referred By Elyssa benavides Referred To Contact Radiology Diagnoses Thyroid nodule Procedures US GUIDANCE AND THYROID FINE NEEDLE ASPIRATION US GUIDANCE AND THYROID BIOPSY Justen Gale MD #[address] [address] Phone: tel: fax: Referral ID Status Reason Start Date Expiration Date Visits Re quested Visits Authorized [id number] Closed 03/29/2022 1 1 NTORY WORKER Reason for Visit * Auth/Cert (Routine) Specialty Diagnoses / Procedures Referred By Elyssa benavides Referred To Contact Diagnoses THYROID NODULE Procedures PRE / POST CARE FOR PROCEDURAL AREA Referral ID Status Reason Start Date Expiration Date Visits Re quested Visits Authorized [id number] 1 1 Encounter Details Date Type Department Care Team (Latest Contact Info) Description 04/22/2022 9:15 AM INVENTORY WORKER - 04/22/2022 11:59 PM INVENTORY WORKER [facility] [address] [place] [address] Justen Gale MD #[address] [place] [address] Discharge Disposition: Discharged to home or Selfcare [...] Coronavirus/COVID-19? No / Unsure 04/22/2022 9:06 AM INVENTORY WORKER documented as of this encounter Last Filed Vital Signs Vital Sign Reading Time Taken Comments Blood Pressure 145/67 04/22/2022 10:04 AM INVENTORY WORKER Pulse 76 04/22/2022 10:04 AM INVENTORY WORKER Temperature - - Respiratory Rate 18 04/22/2022 10:04 AM INVENTORY WORKER Oxygen Saturation 94% 04/22/2022 10:04 AM INVENTORY WORKER Inhaled Oxygen Concentration - - Weight - - Height - - Body Mass Index - - documented in this encounter Discharge Instructions * Discharge Instructions* Shanthi Grant RN - 04/22/2022 10:22 AM INVENTORY WORKER GENERAL GUIDELINES FOR MINIMIZING NAUSEA: Do not [...] not go away Fever over 100.4 F NTORY WORKER documented in this encounter Medications at Time of Discharge albuterol 108 (90 Base) MCG/ACT Aerosol Solution take 2 Puffs by inhalation. 04/19/2021 Blood Glucose Monitoring Suppl DeviceIndications :Type 2 diabetes mellitus with complication, without long-term current use of insulin ([facility]) Diagnosis: Diabetes Type 2 Blood testing frequency: 4 times a day 1 Each 11/21/2017 diphenhydrAMINE (BENADRYL) 25 MG Capsule Take 25 mg by mouth every 6 hours as needed. exemestane (AROMASIN) 25 MG Tablet Take 25 mg by mouth daily. Glucose Blood (ONE TOUCH ULTRA TEST) Strip Test four times daily. 400 Strip 3 02/11/2020 HYDROcodone-aceta minophen (NORCO) 7.5-325 MG Tablet 0 02/17/2019 [facility]. Devices MiscIndications:O SA (obstructive sleep apnea) Supply and instructions: 1 Each 09/09/2020 naloxone HCl (Narcan) 4 MG/0.1ML Liquid as needed 05/13/2021 OneTouch Delica Lancets 33G [facility] 1 Lancet by Does not apply route [...] by mouth 2 times daily. 3 nystatin 788781 UNIT/GM Powder 11/09/2021 4 ondansetron (Zofran) 4 [...] 04/22/2022 10:00 AM CST Pt. Transported to [facility] . Procedure explained to pt. to see pt. And explain procedure, understanding stated Consent formed signed. Positioned onto table on back NTORY WORKER * Interdisciplinary - Shanthi Grant RN - 04/22/2022 10:00 AM CST Procedure completed. VSS Tolerated well. Bandaid to right neck Ice pack for comfort. Discharge instructions reviewed with understanding stated. Ready for transport to daysurgery NTORY WORKER documented in this encounter Plan of Treatment Upcoming Encounters Date Type Department Care Team (Late st Contact Info) Description 05/17/2024 2:45 PM INVENTORY WORKER Office Visit [facility] - Endocr[facility]ology - [place] [address] [place] [address] Annel Rod MD #[address] [address] documented as of this encounter Procedures Procedure Name Priority Date/Time Associated Diagnosis Comments US GUIDANCE AND THYROID FINE NEEDLE ASPIRATION Routine 04/22/2022 10:25 AM INVENTORY WORKER Thyroid nodule PATHOLOGY CYTOLOGY NON-ACCOUNT UNDERWRITER Routine 04/22/2022 10:16 AM INVENTORY WORKER Thyroid nodule documented in this encounter Results * US GUIDANCE AND THYROID FINE NEEDLE ASPIRATION (04/22/2022 10:25 AM INVENTORY WORKER) Anatomical Region Laterality Modality BODY N/A Ultrasound 04/22/2022 1:01 PM INVENTORY WORKER Addenda Addendum by Giovanni Tavares MD on 04/26/2022 10:13 AM INVENTORY WORKER ADDENDUM REPORT: ADDENDUM: ??PATHOLOGY ADDENDUM: ??04/26/2022 Final [...] PM T: ??04/22/2022 1:01 PM Report ID: [id number] Reading Location: ??[id number] THIS IS AN ELECTRONICALLY VERIFIED FINAL REPORT 04/26/2022 10:10 AM ??Addendum Electronically signed by Giovanni Tavares M.D. AG: BAKARI D: ??04/26/2022 10:10 AM T: ??04/26/2022 10:10 AM Report ID: [id number] Reading Location: ??[id number] Impressions 04/22/2022 1:04 PM INVENTORY WORKER IMPRESSION: Ultrasound guided fine-needle aspiration of a ??right ?? thyroid nodule. ??Pathology is pending. Narrative 04/22/2022 1:04 PM INVENTORY WORKER EXAM DESCRIPTION: ?? US GUIDANCE AND THYROID [...] PM T: ??04/22/2022 1:01 PM Report ID: [id number] Reading Location: ??[id number] Procedure Note Giovanni Tavares MD - 04/22/2022 [...] 1:01 PM - Electronically signed by Giovanni Tavaers M.D. AG: BAKARI Report ID: [id number] Reading Location: [id number] IMPRESSION: Ultrasound guided fine-needle aspiration of a right thyroid nodule. Pathology is pending. us Justen Gale MD IMG US ORDERABLES Edited Resu lt - Final * Pathology Cytology Non-ACCOUNT UNDERWRITER (04/22/2022 10:16 AM INVENTORY WORKER) Case Report Medical Cytology Report ? Case: [id number] ? Authorizing Provider: ??Justen Gale MD ? Collected: ? 04/22/2022 10:16 AM ? Ordering Location: ? [facility] ? Received: ?04/22/2022 10:32 AM ? [facility] ? Ultrasound ? Pathologist: ? Leo Prdahan MD ? Specimen: ?Thyroid, Right Thyroid Inferior FNA 3 passes, VAN/Chaitanya, 1016, 04/22/22 ? 04/26/2022 8:57 AM [facility] FINAL DIAGNOSIS THYROID GLAND, RIGHT INFERIOR (2.8 CM), ULTRASOUND GUIDED FINE NEEDLE ASPIRATION: - ADEQUATE FOR INTERPRETATION. - BENIGN, CONSISTENT WITH A BENIGN FOLLICULAR NODULE (INCLUDES ADENOMATOID NODULE, COLLOID NODULE, ETC.). BETHESDA CLASS II. 04/26/2022 8:57 AM [facility] Intraoperative Consultation A. Right Thyroid Inferior FNA 3 passes, VAN/Chaitanya, 1016, 04/22/22 PATHOLOGY (Immediate Interpretation) : Thyroid Gland, Right Inferior (2.8 cm), Ultrasound Guided Fine Needle Aspiration: Episode #1, Passes 1-3 - Adequate for evaluation. Conveyed to Dr. Tavares by Dr. Pradhan on April 22, 2022. Time In: 10:16 am. Time Out: 10:21 am. 04/26/2022 8:57 AM [facility] Gross Description A. Right Thyroid Inferior FNA 3 passes, VAN/Chaitanya, 1016, 04/22/22 Specimen presents in a sterile syringe designated right inferior (2.8 cm) thyroid biopsy, and is comprised of less than 1 mL of bright red fluid from which three Diff-Quik and three Pap stains (fixed in 95% alcohol) are prepared for cytologic examination. TYREE/van 04/26/2022 8:57 AM [facility] Microscopic Description Microscopic examination was performed which supports the final diagnosis. All control tissues stained appropriately. 04/26/2022 8:57 AM [facility] Non-Scalp Treatment Operator Specimen Adequacy Satisfactory for evaluation. 04/26/2022 8:57 AM [facility] Non-Gyne Primary Interpretation NEGATIVE FOR MALIGNANCY. 04/26/2022 8:57 AM [facility] Non Scalp Treatment Operator Interpretation Abundant colloid and some epithelial cells - favor colloid nodule. 04/26/2022 8:57 AM [facility] NON ACCOUNT UNDERWRITER OTHER FINDINGS RECOMMENDATION If warranted, clinical correlation and follow-up studies advised. 04/26/2022 8:57 AM INVENTORY WORKER [facility] Tissue THYROID STRUCTURE / Unknown 04/22/2022 10:16 AM INVENTORY WORKER 04/22/2022 10:32 AM INVENTORY WORKER Justen Gale MD PATHOLOGY/CYTOLOGY ORDERABLES Final Result [facility] #1 [place] [address] documented in this encounter Visit Diagnoses Diagnosis Thyroid nodule Nontoxic uninodular goiter documented in this encounter Administered Medications Inactive Administered Medications - up to 3 most recent administrations Medication Order MAR Action Action Date Dose Rate Site lidocaine 1 % injection 10 mL 10 mL, Other, ONCE, 1 dose, On Mon04/22/22 at 1030 Given 04/22/2022 10:12 AM INVENTORY WORKER 10 mL documented in this encounter Additional Health Concerns Assessment Noted Time PHQ-9 Depression Total Score: 0 07/21/19 21 3:00 PM CDT documented as of this encounter Care Teams Drywall Professional Relationship Specialty Start Date End Date Justen Gale MD #[address] [address] PCP - General Family Medicine 10/17/17 David Roberts, ALARM FIELD TECHNICIAN, PEARL DIGGER #2 [place] [address] Nurse Practitioner Advanced Practice Nurse 01/31/22 documented as of this encounter
--- OUTSIDE RECORDS SUMMARY | 2024-04-26 07:44 | XMS_ITS | Encounter Summary ---
Author Organization [facility] [employer] Care Team Providers Care Occupational Therapist Rehab Manager Name Role Phone Justen Gale MD Primary Care Provider [phone] David Roberts APRN, CONTRACTS PARALEGAL Unavailable [phone] Encounter Details Date Type Department Care Team [...] Coronavirus/COVID-19? No / Unsure 04/22/2022 9:06 AM BIT AND SHANK DEPARTMENT SUPERVISOR documented as of this encounter Plan of Treatment Upcoming Encounters Date Type Department Care Team (Late st Contact Info) Description 05/17/2024 2:45 PM BIT AND SHANK DEPARTMENT SUPERVISOR Office Visit [facility] End[facility] - [place] [address] [place] [phone] Annel Rod MD #2 [facility] [address] [place] [address] documented as of this encounter Visit Diagnoses Not on filedocumented in this encounter Additional Health Concerns Assessment Noted Time PHQ-9 Depression Total Score: 0 07/21/19 21 3:00 PM CDT documented as of this encounter Care Teams Occupational Therapist Rehab Manager Relationship Specialty Start Date End Date Justen Gale MD #2 [facility] [address] [place] [address] PCP - General Family Medicine 10/17/17 David Roberts APRN, CONTRACTS PARALEGAL #2 [place] [address] Nurse Practitioner Advanced Practice Nurse 01/31/22 documented as of this encounter
--- OUTSIDE RECORDS SUMMARY | 2024-04-26 07:44 | XMS_ITS | Encounter Summary ---
Author Organization [facility] Address [address] [place] [address] Phone Care Team Providers Care Drilling Field Specialist Name Role Phone Justen Gale MD Primary Care Provider [phone] David Roberts APRN, AIR HOIST OPERATOR Unavailable [phone] Reason for Referral * Radiology Services (Routine) - Closed Specialty Diagnoses / Procedures Referred By Elyssa benavides Referred To Contact Radiology Diagnoses Thyroid nodule Procedures US THYROID Justen Gale MD #[address] [address] Phone: tel: fax: Referral ID Status Reason Start Date Expiration Date Visits Re quested Visits Authorized [id number] Closed 03/14/2022 1 1 DRAWER HAND Reason for Visit * Reason Onset Date Comments Results 03/14/2022 Encounter Details Date Type Department Care Team (Late st Contact Info) Description 03/14/2022 Telephone [facility] Family Medicine [facility] #[address] [place] [address] Justen Gale MD #2 [facility] [place] [address] Results Social History Tobacco Use Types Packs/Day [...] Coronavirus/COVID-19? No / Unsure 03/03/2022 9:24 AM COKE DRAWER HAND documented as of this encounter Miscellaneous Notes * Telephone Encounter - Stacy Huang RN - 03/14/2022 2:03 PM CST Called and let patient know, she stated that she understood. DRAWER HAND * Telephone Encounter - Justen Gale MD - 03/14/2022 12:30 PM CST Please call. Ct shows thyroid mass. I will order an ultrasound of your thyroid to get a better lookat it DRAWER HAND documented in this encounter Plan of Treatment Upcoming Encounters Date Type Department Care Team (Late st Contact Info) Description 05/17/2024 2:45 PM COKE DRAWER HAND Office Visit [facility] - Endocrinology [facility] #[address] [place] [phone] Annel Rod MD #[address] [phone] documented as of this encounter Procedures Procedure Name Priority Date/Time Associated Diagnosis Comments US THYROID Routine 03/21/2022 12:00 AM COKE DRAWER HAND Thyroid nodule documented in this encounter Results * US THYROID (03/21/2022 12:00 AM COKE DRAWER HAND) Anatomical Region Laterality Modality BODY N/A Other 03/21/2022 us Justen Gale MD [facility] ORDERABLES Final Resul t documented in this encounter Visit Diagnoses Diagnosis Thyroid nodule- Primary Nontoxic uninodular goiter documented in this encounter Additional Health Concerns Assessment Noted Time PHQ-9 Depression Total Score: 0 07/21/19 21 3:00 PM CDT documented as of this encounter Care Teams Drilling Field Specialist Relationship Specialty Start Date End Date Justen Gale MD #[address] [address] PCP - General Family Medicine 10/17/17 David Roberts, POULTRY HATCHERY LABORER, AIR HOIST OPERATOR #2 [place] [address] Nurse Practitioner Advanced Practice Nurse 01/31/22 documented as of this encounter
--- OUTSIDE RECORDS SUMMARY | 2024-04-26 07:44 | XMS_ITS | Encounter Summary ---
Author Organization [facility] Address [address] [place] [address] Phone Care Team Providers Care Return Clerk Name Role Phone Justen Gale MD Primary Care Provider [phone] David Roberts APRN, PMO LEAD Unavailable [phone] Reason for Visit * Reason Comments Mouth Lesions Joint Pain Muscle Pain Encounter Details Date Type Department Care Team (Late st Contact Info) Description 05/02/2022 3:30 PM PIPELINE WELDER Office Visit [facility] Family Medicine [facility] #2 [place] [address] Justen Gale MD #[address] [address] Essential hypertension (Primary Dx); Canker sores oral; [...] Coronavirus/COVID-19? No / Unsure 05/02/2022 3:22 PM PIPELINE WELDER documented as of this encounter Last Filed Vital Signs Vital Sign Reading Time Taken Comments Blood Pressure 162/84 05/02/2022 3:48 PM PIPELINE WELDER Pulse 111 05/02/2022 3:26 PM PIPELINE WELDER Temperature 36.7 ??C (98.1 ??F) 05/02/2022 3:26 PM CS T Respiratory Rate 20 05/02/2022 3:26 PM PIPELINE WELDER Oxygen Saturation 98% 05/02/2022 3:26 PM PIPELINE WELDER Inhaled Oxygen Concentration - - Weight 128.8 kg (284 lb) 05/02/2022 3:26 PM PIPELINE WELDER Height 154.9 cm (5' 1 ) 05/02/2022 3:26 PM PIPELINE WELDER Body Mass Index 53.66 05/02/2022 3:26 PM PIPELINE WELDER documented in this encounter Progress Notes * Alvina Lockwood RMA - 05/02/2022 3:30 PM CST Karly Marques is a 66 y.o. female with current BMI: Body mass index is 53.66 kg/m??. Interventions discussed including: encourage daily physical activity and well- balanced diet. LINE WELDER * Alvina Lockwood RMA - 05/02/2022 3:30 [...] times daily. Yes Tyler Smith MD nystatin [id number] UNIT/GM Powder APPLY TO THE AFFECTED AREA [...] been addressed with the patient today: BMI LINE WELDER * Justen Gale MD - 05/02/2022 3:30 [...] MORNING 45 mL 1 ??? Misc. Devices [facility] Supply and instructions: 1 Each 0 ??? [...] wnl. No cancer Seeing endo dr rod LINE WELDER documented in this encounter Plan of Treatment Upcoming Encounters Date Type Department Care Team (Late st Contact Info) Description 05/17/2024 2:45 PM PIPELINE WELDER Office Visit [facility] - Endocrinology - [place] #2 [place] [address] Annel Rod MD #[address] [address] Scheduled Orders Name Type Priority Associated Diagnoses [...] documented as of this encounter Care Teams Return Clerk Relationship Specialty Start Date End Date Justen Gale MD #2 [facility] [address] [address] PCP - General Family Medicine 10/17/17 David Roberts APRN, NETTA #2 [place] [address] Nurse Practitioner Advanced Practice Nurse 01/31/22 documented as of this encounter
--- OUTSIDE RECORDS SUMMARY | 2024-04-26 07:44 | XMS_ITS | Encounter Summary ---
Author Organization [facility] [employer] Care Team Providers Care Custom Garment Designer Name Role Phone Justen Gale MD Primary Care Provider [phone] David Roberts APRN, MANAGER RESEARCH AND DEVELOPMENT Unavailable [phone] Encounter Details Date Type Department Care Team [...] Coronavirus/COVID-19? No / Unsure 03/03/2022 9:24 AM HEMSTITCHER documented as of this encounter Plan of Treatment Upcoming Encounters Date Type Department Care Team (Late st Contact Info) Description 05/17/2024 2:45 PM HEMSTITCHER Office Visit [facility] - Endocr[facility]ology - [place] #[address] [place] [phone] Annel Rod MD #2 [facility] [address] [place] [address] documented as of this encounter Visit Diagnoses Not on filedocumented in this encounter Additional Health Concerns Assessment Noted Time PHQ-9 Depression Total Score: 0 07/21/19 21 3:00 PM CDT documented as of this encounter Care Teams Custom Garment Designer Relationship Specialty Start Date End Date Justen Gale MD #2 [facility] [address] [place] [address] PCP - General Family Medicine 10/17/17 David Roberts APRN, MANAGER RESEARCH AND DEVELOPMENT #2 [place] [address] Nurse Practitioner Advanced Practice Nurse 01/31/22 documented as of this encounter
--- OUTSIDE RECORDS SUMMARY | 2024-04-26 07:44 | XMS_ITS | Encounter Summary ---
Author Organization [facility] Address [address] [place] [address] Phone Care Team Providers Care Revenue Integrity Analyst Name Role Phone Justen Gale MD Primary Care Provider [phone] David Roberts APRN, GOVERNMENT PROPERTY INSPECTOR Unavailable [phone] Reason for Visit * Reason Onset Date Comments Follow-up 05/04/2022 Encounter Details Date Type Department Care Team (Late st Contact Info) Description 05/04/2022 Telephone [facility] - Family Medicine [facility] #2 [place] [address] Justen Gale MD #[address] [id number] Follow-up Social History Tobacco Use Types Packs/Day [...] Coronavirus/COVID-19? No / Unsure 05/02/2022 3:22 PM OPTICAL MODEL MAKER AND TESTER documented as of this encounter Miscellaneous Notes * Telephone Encounter - Stacy Huang RN - 05/05/2022 9:47 AM CST Sent message to patient through my chart. CAL MODEL MAKER AND TESTER * Telephone Encounter - Justen Gale MD - 05/04/2022 2:40 PM CST Please call. No referral needed. The mcat instructor wont be able to help you CAL MODEL MAKER AND TESTER documented in this encounter Plan of Treatment Upcoming Encounters Date Type Department Care Team (Late st Contact Info) Description 05/17/2024 2:45 PM OPTICAL MODEL MAKER AND TESTER Office Visit [facility] - Endocrinology [facility] #2 [place] [address] Annel Rod MD #2 [facility] [address] [place] [address] documented as of this encounter Visit Diagnoses Not on filedocumented in this encounter Additional Health Concerns Assessment Noted Time PHQ-9 Depression Total Score: 0 07/21/19 21 3:00 PM CDT documented as of this encounter Care Teams Revenue Integrity Analyst Relationship Specialty Start Date End Date Justen Gale MD #2 [facility] [address] [place] [address] PCP - General Family Medicine 10/17/17 David Roberts, SWITCHBOARD TROUBLESHOOTER, GOVERNMENT PROPERTY INSPECTOR #2 [place] [address] Nurse Practitioner Advanced Practice Nurse 01/31/22 documented as of this encounter
--- OUTSIDE RECORDS SUMMARY | 2024-04-26 07:44 | XMS_ITS | Encounter Summary ---
Author Organization [facility] Address [address] [place] [address] Phone Care Team Providers Care Mixing Tank Operator Name Role Phone Justen Gale MD Primary Care Provider [phone] David Roberts APRN, SCRAP METAL BURNER Unavailable [phone] Reason for Visit * Reason Onset Date Comments Medication Reaction 04/22/2022 Encounter Details Date Type Department Care Team (Late st Contact Info) Description 04/22/2022 Nurse Triage [facility] [address] [place] [address] Justen Gale MD #[address] [address] Medication Reaction Social History Tobacco [...] Coronavirus/COVID-19? No / Unsure 04/22/2022 9:06 AM ENGRAVER LETTER documented as of this encounter Miscellaneous Notes * Telephone Encounter - Joan Carlson RN - 04/23/2022 12:[address] Hunt via [facility] at [phone]. Dr Hunt returned call. states that patient [...] patient a message due to unidentified voicemail. AVER LETTER * Telephone Encounter - Odalis Moss RN - 04/22/2022 10:57 PM ENGRAVER LETTER SITUATION: Allergic reaction BACKGROUND: Was given a [...] answer question Protocols used: POST-OP SYMPTOMS AND [id number] AVER LETTER documented in this encounter Plan of Treatment Upcoming Encounters Date Type Department Care Team (Larry Contact Info) Description 05/17/2024 2:45 PM ENGRAVER LETTER Office Visit [facility] - [place] [address] [place] [address] Annel Rod MD #2 [facility] [address] [place] [address] documented as of this encounter Visit Diagnoses Not on filedocumented in this encounter Additional Health Concerns Assessment Noted Time PHQ-9 Depression Total Score: 0 07/21/19 21 3:00 PM CDT documented as of this encounter Care Teams Mixing Tank Operator Relationship Specialty Start Date End Date Justen Gale MD #2 [facility] [address] [place] [address] PCP - General Family Medicine 10/17/17 David Roberts APRN, SCRAP METAL BURNER #2 [place] [address] Nurse Practitioner Advanced Practice Nurse 01/31/22 documented as of this encounter
--- OUTSIDE RECORDS SUMMARY | 2024-04-26 07:44 | XMS_ITS | Encounter Summary ---
Author Organization [facility] Address [address] [place] [address] Phone Care Team Providers Care Retail Experience Specialist Name Role Phone Justen Gale MD Primary Care Provider [phone] David Roberts APRN, PROCESS ENVIRONMENTAL TECHNICIAN Unavailable [phone] Reason for Visit * Reason Comments Medication Refill Encounter Details Date Type Department Care Team (Late st Contact Info) Description 05/19/2022 Refill [facility] - [place] #2 [place] [address] Annel Rod MD #[address] [address] Medication Refill Social History Tobacco [...] Coronavirus/COVID-19? No / Unsure 05/02/2022 3:22 PM TESTING MANAGER documented as of this encounter Miscellaneous Notes * Telephone Encounter - Annel Rod MD - 05/25/2022 9:22 PM CST Rx sent ING MANAGER * Telephone Encounter - Jennifer Wang, RN - 05/25/2022 3:54 PM TESTING MANAGER Requested Prescriptions Pending Prescriptions Disp Refills ??? HumaLOG KwikPen 100 UNIT/ML Solution Pen-injector [Pharmacy Med Name: HUMALOG 100 U/ML KWIK PENINJ 3ML] 30 mL 1 Sig: ADMINISTER 22 UNITS BEFORE EACH MEAL, ISF OF 1:15 IF>150MG/DL, MAX DAILY DOSE OF 100 UNITS Next appt: Message sent to schedule follow up. ING MANAGER documented in this encounter Plan of Treatment Upcoming Encounters Date Type Department Care Team (Late st Contact Info) Description 05/17/2024 2:45 PM TESTING MANAGER Office Visit [facility] - Endocr[facility]ology [facility] #2 [place] [address] Annel Rod MD #2 [facility] [address] [place] [address] documented as of this encounter Visit Diagnoses Not on filedocumented in this encounter Additional Health Concerns Assessment Noted Time PHQ-9 Depression Total Score: 0 07/21/19 21 3:00 PM CDT documented as of this encounter Care Teams Retail Experience Specialist Relationship Specialty Start Date End Date Justen Gale MD #2 [facility] [address] [place] [address] PCP - General Family Medicine 10/17/17 David Roberts, CONSTRUCTION ELECTRICIAN, PROCESS ENVIRONMENTAL TECHNICIAN #[address] [place] [address] Nurse Practitioner Advanced Practice Nurse 01/31/22 documented as of this encounter
--- OUTSIDE RECORDS SUMMARY | 2024-04-26 07:44 | XMS_ITS | Encounter Summary ---
Author Organization [facility] Address [address] [place] [address] Phone Care Team Providers Care Eyelet Riveter Name Role Phone Justen Gale MD Primary Care Provider [phone] David Roberts APRN, RN WOMEN SERVICES Unavailable [phone] Reason for Visit * Auth/Cert (Routine) Specialty Diagnoses / Procedures Referred By Elyssa benavides Referred To Contact Diagnoses THYROID NODULE Procedures PRE / POST CARE FOR PROCEDURAL AREA Referral ID Status Reason Start Date Expiration Date Visits Re quested Visits Authorized [id number] 1 1 Encounter Details Date Type Department Care Team (Late st Contact Info) Description 04/22/2022 10:00 AM AGENCY CASHIER - 04/22/2022 10:30 AM AGENCY CASHIER [facility] [address] [place] [address] Provider, Not On File [place] PRE / POST CARE FOR PROCEDURAL AREA / THYROID BIOPSY Surgery Details Date/Time Status Location OR Service Patient Class Case Class Case Type Trauma Case? 04/22/2022 10:00 AM Posted [facility] INVASIVE IMAGING [facility] IR [facility] Ambulatory Surgery [...] Coronavirus/COVID-19? No / Unsure 04/22/2022 9:06 AM AGENCY CASHIER documented as of this encounter Last Filed Vital Signs Vital Sign Reading Time Taken Comments Blood Pressure 148/88 04/22/2022 9:22 AM AGENCY CASHIER Pulse 80 04/22/2022 9:22 AM AGENCY CASHIER Temperature 36.3 ??C (97.3 ??F) 04/22/2022 9:22 AM CS T Respiratory Rate 16 04/22/2022 9:22 AM AGENCY CASHIER Oxygen Saturation 98% 04/22/2022 9:22 AM AGENCY CASHIER Inhaled Oxygen Concentration - - Weight 127 kg (280 lb) 04/22/2022 9:22 AM AGENCY CASHIER Height 154.9 cm (5' 1 ) 04/22/2022 9:22 AM AGENCY CASHIER Body Mass Index 52.91 04/22/2022 9:22 AM AGENCY CASHIER documented in this encounter Medications at Time of Discharge albuterol 108 (90 Base) MCG/ACT Aerosol Solution take 2 Puffs by inhalation. 04/19/2021 Blood Glucose Monitoring Suppl DeviceIndications :Type 2 diabetes mellitus with complication, without long-term current use of insulin ([facility]) Diagnosis: Diabetes Type 2 Blood [...] minophen (NORCO) 7.5-325 MG Tablet 0 02/17/2019 [facility]. Devices MiscIndications:O SA (obstructive sleep apnea) Supply and instructions: 1 Each 09/09/2020 naloxone HCl (Narcan) 4 MG/0.1ML Liquid as needed 05/13/2021 OneTouch Delica Lancets 33G [facility] 1 Lancet by Does not apply route [...] III SHORT PEN) 31G X 8 MM [facility] USE 6 TIMES DAILY DIRECTED 300 Pen Needle 1 06/23/2021 3 Lantus SoloStar 100 UNIT/ML Solution Pen-injector ADMINISTER 50 UNITS UNDER THE SKIN EVERY MORNING 45 mL 1 12/07/2021 3 nitrofurantoin, macrocrystal-mono hydrate, (MACROBID) 100 MG Capsule Take 100 mg by mouth 2 times daily. 3 nystatin 255026 UNIT/GM Powder 11/09/2021 4 ondansetron (Zofran) 4 [...] for Transition of Care Outcome: Outcome Achieved CY CASHIER * Plan of Care - Lexi Bennett RN - 04/22/2022 9:39 AM CST Patient here for thyroid biopsy. Patient anxious about procedure but pleased to be getting it done.Patient ready for procedure. CY CASHIER documented in this encounter Plan of Treatment Upcoming Encounters Date Type Department Care Team (Late st Contact Info) Description 05/17/2024 2:45 PM AGENCY CASHIER Office Visit [facility] - [facility] - [place] [address] [place] [address] Annel Rod MD #[address] [address] documented as of this encounter Procedures Procedure Name Priority Date/Time Associated Diagnosis Comments PRE / POST CARE FOR PROCEDURAL AREA 04/22/2022 10:00 AM AGENCY CASHIER THYROID NODULE documented in this encounter Visit Diagnoses Not on filedocumented in this encounter Additional Health Concerns Assessment Noted Time PHQ-9 Depression Total Score: 0 07/21/19 21 3:00 PM CDT documented as of this encounter Care Teams Eyelet Riveter Relationship Specialty Start Date End Date Justen Gale MD #[address] [address] PCP - General Family Medicine 10/17/17 David Roberts APRN, NETTA #2 [place] [address] Nurse Practitioner Advanced Practice Nurse 01/31/22 documented as of this encounter
--- OUTSIDE RECORDS SUMMARY | 2024-04-26 07:44 | XMS_ITS | Encounter Summary ---
Author Organization [facility] Address [address] [place] [address] Phone Care Team Providers Care Cold Reduction Roller Name Role Phone Justen Gale MD Primary Care Provider David Roberts TRAINING AND DEVELOPMENT ASSISTANT, CHIEF OF HARBOR PATROL Unavailable Reason for Visit * Reason Onset Date Comments Allergic Reaction 03/09/2022 Encounter Details Date Type Department Care Team (Late st Contact Info) Description 03/09/2022 Telephone [facility] #2 [place] [address] David Roberts, TRAINING AND DEVELOPMENT ASSISTANT, CHIEF OF HARBOR PATROL #2 [place] [address] Allergic Reaction Social History Tobacco [...] Coronavirus/COVID-19? No / Unsure 03/03/2022 9:24 AM STONE DRESSER documented as of this encounter Miscellaneous Notes * Telephone Encounter - David Roberts APRN, CNP - 03/15/2022 8:[address] Burgess sent trimethoprim on 03/14 to [facility]. Have patient call if any issues. Will need scheduled for cystoscopy. E DRESSER * Telephone Encounter - Sylvia Burgess III, MD - 03/14/2022 4:37 PM STONE DRESSER Suppressive trimpex is 100 mg daily I will give it a whirl but I do not have an existing note to addend it to. So please check my work E DRESSER * Telephone Encounter - Sylvia Burgess III, MD - 03/12/2022 6:47 PM STONE DRESSER I am not sure what was pended to me. Please show me Monday E DRESSER * Telephone Encounter - Sonali Murrell RN - 03/11/2022 12:15 PM CST Order defaults to 100 mg BID for 30 days. I pended for review. Please sign and send if appropriate. E DRESSER * Telephone Encounter - Sylvia Burgess III, MD - 03/10/2022 4:55 PM STONE DRESSER Not sure this was directed to me [...] if she needs home health IV antibiotics E DRESSER * Telephone Encounter - Valerie Simental - [...] call back Please advise for further steps. E DRESSER documented in this encounter Plan of Treatment Upcoming Encounters Date Type Department Care Team (Late st Contact Info) Description 05/17/2024 2:45 PM STONE DRESSER Office Visit [facility] - [place] #2 [place] [address] Annel Rod MD #2 [facility] [address] [place] [address] documented as of this encounter Visit Diagnoses Diagnosis Recurrent UTI- Primary Urinary tract infection, site not specified documented in this encounter Additional Health Concerns Assessment Noted Time PHQ-9 Depression Total Score: 0 07/21/19 21 3:00 PM CDT documented as of this encounter Care Teams Cold Reduction Roller Relationship Specialty Start Date End Date Justen Gale MD #2 [facility] [address] [place] [address] PCP - General Family Medicine 10/17/17 David Roberts, TRAINING AND DEVELOPMENT ASSISTANT, CHIEF OF HARBOR PATROL #[address] [place] [address] Nurse Practitioner Advanced Practice Nurse 01/31/22 documented as of this encounter
--- OUTSIDE RECORDS SUMMARY | 2024-04-26 07:44 | XMS_ITS | Encounter Summary ---
Author Organization [facility] Address [address] [place] [address] Phone Care Team Providers Care Waterproofer Name Role Phone Justen Gale MD Primary Care Provider [phone] David Roberts APRN, GEOSPATIAL IMAGE ANALYST Unavailable [phone] Reason for Visit * Auth/Cert (Routine) Specialty Diagnoses / Procedures Referred By Elyssa benavides Referred To Contact Diagnoses THYROID NODULE Procedures PRE / POST CARE FOR PROCEDURAL AREA Referral ID Status Reason Start Date Expiration Date Visits Re quested Visits Authorized [id number] 1 1 Encounter Details Date Type Department Care Team (Latest Contact Info) Description 04/22/2022 9:09 AM APPRAISER ART - 04/22/2022 10:55 AM APPRAISER ART [facility] Preop/Pacu II 1 [place] [address] Provider, Not On File Giovanni Rodriguez MD #1 [place] [address] Discharge Disposition: Discharged to home or Selfcare [...] Coronavirus/COVID-19? No / Unsure 04/22/2022 9:06 AM APPRAISER ART documented as of this encounter Last Filed Vital Signs Vital Sign Reading Time Taken Comments Blood Pressure 166/93 04/22/2022 10:50 AM APPRAISER ART Pulse 84 04/22/2022 10:50 AM APPRAISER ART Temperature 36.8 ??C (98.2 ??F) 04/22/2022 10:[address] Respiratory Rate 16 04/22/2022 10:50 AM APPRAISER ART Oxygen Saturation 97% 04/22/2022 10:50 AM APPRAISER ART Inhaled Oxygen Concentration - - Weight 127 kg (280 lb) 04/22/2022 9:22 AM APPRAISER ART Height 154.9 cm (5' 1 ) 04/22/2022 9:22 AM APPRAISER ART Body Mass Index 52.91 04/22/2022 9:22 AM APPRAISER ART documented in this encounter Medications at Time of Discharge albuterol 108 (90 Base) MCG/ACT Aerosol Solution take 2 Puffs by inhalation. 04/19/2021 Blood Glucose Monitoring Suppl DeviceIndications :Type 2 diabetes mellitus with complication, without long-term current use of insulin ([facility]) Diagnosis: Diabetes Type 2 Blood [...] by mouth 2 times daily. 3 nystatin 526925 UNIT/GM Powder 11/09/2021 4 ondansetron (Zofran) 4 [...] for Transition of Care Outcome: Outcome Achieved AISER ART * Plan of Care - Lexi Bennett RN - 04/22/2022 9:39 AM CST Patient here for thyroid biopsy. Patient anxious about procedure but pleased to be getting it done.Patient ready for procedure. AISER ART documented in this encounter Plan of Treatment Upcoming Encounters Date Type Department Care Team (Late st Contact Info) Description 05/17/2024 2:45 PM APPRAISER ART Office Visit [facility] Endocrin[facility] #[address] [place] [address] Annel Rod MD #[address] [place] [address] documented as of this encounter Procedures Procedure Name Priority Date/Time Associated Diagnosis Comments PRE / POST CARE FOR PROCEDURAL AREA 04/22/2022 10:00 AM APPRAISER ART THYROID NODULE documented in this encounter Visit Diagnoses Not on filedocumented in this encounter Additional Health Concerns Assessment Noted Time PHQ-9 Depression Total Score: 0 07/21/19 21 3:00 PM CDT documented as of this encounter Care Teams Waterproofer Relationship Specialty Start Date End Date Justen Gale MD #[address] [address] PCP - General Family Medicine 10/17/17 David Roberts, PUBLIC AREA ATTENDANT, GEOSPATIAL IMAGE ANALYST #2 [place] [address] Nurse Practitioner Advanced Practice Nurse 01/31/22 documented as of this encounter
--- OUTSIDE RECORDS SUMMARY | 2024-04-26 07:44 | XMS_ITS | Encounter Summary ---
Author Organization [facility] Address [address] [place] [address] Phone Care Team Providers Care Editor Continuity And Script Name Role Phone Justen Gale MD Primary Care Provider [phone] David Roberts APRN, RETIREMENT BENEFITS SPECIALIST Unavailable [phone] Reason for Visit * Reason Onset Date Comments Allergic Reaction 03/08/2022 Encounter Details Date Type Department Care Team (Late st Contact Info) Description 03/08/2022 Telephone [facility] [address] [place] [address] Justen Gale MD #[address] [address] Allergic Reaction Social History Tobacco Use Types [...] Coronavirus/COVID-19? No / Unsure 03/03/2022 9:24 AM SPECIAL EFFECTS DESIGNER documented as of this encounter Miscellaneous Notes * Telephone Encounter - Alejandra Garza, RN - 03/08/2022 11:38 AM CST Patient calling States on antibiotic For uti taking benadryl with antibiotic States worsening shortness of breath States is taking her to Emergency Department Currently Did not triage any further Routed to primary care provider For follow up IAL EFFECTS DESIGNER documented in this encounter Plan of Treatment Upcoming Encounters Date Type Department Care Team (Late st Contact Info) Description 05/17/2024 2:45 PM SPECIAL EFFECTS DESIGNER Office Visit [facility] - Endocrinology [facility] #2 [place] [address] Annel Rod MD #2 [facility] [address] [place] [address] documented as of this encounter Visit Diagnoses Not on filedocumented in this encounter Additional Health Concerns Assessment Noted Time PHQ-9 Depression Total Score: 0 07/21/19 21 3:00 PM CDT documented as of this encounter Care Teams Editor Continuity And Script Relationship Specialty Start Date End Date Justen Gale MD #2 [facility] [address] [place] [address] PCP - General Family Medicine 10/17/17 David Roberts, CONTENT CREATION MANAGER, RETIREMENT BENEFITS SPECIALIST #2 [place] [address] Nurse Practitioner Advanced Practice Nurse 01/31/22 documented as of this encounter
--- OUTSIDE RECORDS SUMMARY | 2024-04-26 07:44 | XMS_ITS | Encounter Summary ---
Author Organization [facility] Address [address] [place] [address] Phone Care Team Providers Care Oliving Machine Operator Name Role Phone Justen Gale MD Primary Care Provider [phone] David Roberts APRN, PEDIATRIC DERMATOLOGIST Unavailable [phone] Encounter Details Date Type Department Care Team (Late st Contact Info) Description 06/14/2022 Telephone [facility] - [place] #2 [place] [address] Annel Rod MD #[address] [address] Social History Tobacco Use Types [...] Jennifer Wang, RN - 06/14/2022 2:58 PM ENTERPRISE SYSTEMS ARCHITECT Message received that patient would like to schedule a follow up. Appointment scheduled. RPRISE SYSTEMS ARCHITECT documented in this encounter Plan of Treatment Upcoming Encounters Date Type Department Care Team (Late st Contact Info) Description 05/17/2024 2:45 PM ENTERPRISE SYSTEMS ARCHITECT Office Visit [facility] - End[facility] #2 [place] [address] Annel Rod MD #2 [facility] [address] [place] [address] documented as of this encounter Visit Diagnoses Not on filedocumented in this encounter Additional Health Concerns Assessment Noted Time PHQ-9 Depression Total Score: 0 07/21/19 21 3:00 PM CDT documented as of this encounter Care Teams Oliving Machine Operator Relationship Specialty Start Date End Date Justen Gale MD #2 [facility] [address] [place] [address] PCP - General Family Medicine 10/17/17 David Roberts APRN, PEDIATRIC DERMATOLOGIST #2 [place] [address] Nurse Practitioner Advanced Practice Nurse 01/31/22 documented as of this encounter
--- OUTSIDE RECORDS SUMMARY | 2024-04-26 07:44 | XMS_ITS | Encounter Summary ---
Author Organization [facility] Address [address] [place] [address] Phone Care Team Providers Care Machine Operator Farmworker Name Role Phone Justen Gale MD Primary Care Provider [phone] David Roberts APRN, POWER HAMMER OPERATOR Unavailable [phone] Encounter Details Date Type Department Care Team (Latest Contact Info) Description 04/12/2022 11:06 AM COMMERCIAL CREDIT SPECIALIST - 04/12/2022 11:59 PM [facility] Hospital Encounter [facility] Resources [address] [place] [address] Provider, Not On File [place] Discharge Disposition: [...] complication, without long-term current use of insulin ([facility]) Diagnosis: Diabetes Type 2 Blood testing [...] 45 mL 1 12/07/2021 3 Misc. Devices [facility] Supply and instructions: 1 Each 02/25/2019 2 nitrofurantoin, macrocrystal-mono hydrate, (MACROBID) 100 MG Capsule Take 100 mg by mouth 2 times daily. 3 nystatin 044299 UNIT/GM Powder 11/09/2021 4 ondansetron (Zofran) 4 [...] Contact Info) Description 05/17/2024 2:45 PM COMMERCIAL CREDIT SPECIALIST Office Visit [facility] - [place] [address] [place] [address] Annel Rod MD #[address] [address] documented as of this encounter Procedures Procedure Name Priority Date/Time Associated Diagnosis Comments US REFERENCE IMAGES FOR IMAGE IMPORT Routine 04/12/2022 11:06 AM COMMERCIAL CREDIT SPECIALIST documented in this encounter Results * US REFERENCE IMAGES FOR IMAGE IMPORT (04/12/2022 11:06 AM COMMERCIAL CREDIT SPECIALIST) us Not On File Provider IMG US ORDERABLES Final Res ult documented in this encounter Visit Diagnoses Not on filedocumented in this encounter Additional Health Concerns Assessment Noted Time PHQ-9 Depression Total Score: 0 07/21/19 21 3:00 PM CDT documented as of this encounter Care Teams Machine Operator Farmworker Relationship Specialty Start Date End Date Justen Gale MD #[address] [address] PCP - General Family Medicine 10/17/17 David Roberts APRN, POWER HAMMER OPERATOR #2 [place] [address] Nurse Practitioner Advanced Practice Nurse 01/31/22 documented as of this encounter
--- OUTSIDE RECORDS SUMMARY | 2024-04-26 07:44 | XMS_ITS | Encounter Summary ---
Author Organization [facility] [employer] Care Team Providers Care Steam Trap Worker Name Role Phone Justen Gale MD Primary Care Provider [phone] David Roberts APRN, ART COORDINATOR Unavailable [phone] Encounter Details Date Type Department Care Team [...] Coronavirus/COVID-19? No / Unsure 03/01/2022 10:08 AM DRIVER LICENSE TECHNICIAN documented as of this encounter Plan of Treatment Upcoming Encounters Date Type Department Care Team (Late st Contact Info) Description 05/17/2024 2:45 PM DRIVER LICENSE TECHNICIAN [facility] - [place] [address] [place] [address] Annel Rod MD #2 [facility] [address] [place] [address] documented as of this encounter Visit Diagnoses Not on filedocumented in this encounter Additional Health Concerns Assessment Noted Time PHQ-9 Depression Total Score: 0 07/21/19 21 3:00 PM CDT documented as of this encounter Care Teams Steam Trap Worker Relationship Specialty Start Date End Date Jsuten Gale MD #2 [facility] [address] [place] [address] PCP - General Family Medicine 10/17/17 David Roberts APRN, ART COORDINATOR #2 [place] [address] Nurse Practitioner Advanced Practice Nurse 01/31/22 documented as of this encounter
--- OUTSIDE RECORDS SUMMARY | 2024-04-26 07:44 | XMS_ITS | Encounter Summary ---
Author Organization [facility] [employer] Care Team Providers Care Property Administrator Name Role Phone Justen Gale MD Primary Care Provider [phone] David Roberts APRN, KENO WRITER/RUNNER Unavailable [phone] Encounter Details Date Type Department Care Team [...] Coronavirus/COVID-19? No / Unsure 05/02/2022 3:22 PM CUT FILER documented as of this encounter Plan of Treatment Upcoming Encounters Date Type Department Care Team (Late st Contact Info) Description 05/17/2024 2:45 PM CUT FILER Office Visit [facility] #[address] [place] [address] Annel Rod MD #2 [place] [facility] [address] [place] [address] documented as of this encounter Visit Diagnoses Not on filedocumented in this encounter Additional Health Concerns Assessment Noted Time PHQ-9 Depression Total Score: 0 07/21/19 21 3:00 PM CDT documented as of this encounter Care Teams Property Administrator Relationship Specialty Start Date End Date Justen Gale MD #2 [place] [facility] [address] [place] [address] PCP - General Family Medicine 10/17/17 David Roberts APRN, KENO WRITER/RUNNER #[address] [place] [address] Nurse Practitioner Advanced Practice Nurse 01/31/22 documented as of this encounter
--- OUTSIDE RECORDS SUMMARY | 2024-04-26 07:44 | XMS_ITS | Encounter Summary ---
Author Organization [facility] Address [address] [place] [address] Phone Care Team Providers Care Lens Molder Name Role Phone Justen Gale MD Primary Care Provider [phone] David Roberts APRN, CHIEF LIFESTYLE OFFICER Unavailable [phone] Reason for Visit * Reason Onset Date Comments Thyroid Problem 03/15/2022 Shortness of Breath 03/15/2022 Sore Throat 03/15/2022 Encounter Details Date Type Department Care Team (Late st Contact Info) Description 03/15/2022 Nurse Triage [facility] [address] [place] [address] Justen Gale MD #[address] [address] Thyroid Problem; Shortness of Breath; Sore Throat [...] Coronavirus/COVID-19? No / Unsure 03/03/2022 9:24 AM REHAB AID documented as of this encounter Miscellaneous Notes * Telephone Encounter - Katty Fajardo RN - 03/15/2022 11:03 AM REHAB AID SITUATION: Sore throat/shortness of breath BACKGROUND: Patient [...] be. Spoke with Angelita at front counter clerk to ask if any appointments would be [...] caller) but not severe Protocols used: BREATHING [id number], SORE THROAT-A-OH STANDING ORDER AVAILABLE B AID documented in this encounter Plan of Treatment Upcoming Encounters Date Type Department Care Team (Late st Contact Info) Description 05/17/2024 2:45 PM REHAB AID Office Visit [facility] - [place] #[address] [place] [address] Annel Rod MD [address] [phone] documented as of this encounter Visit Diagnoses Not on filedocumented in this encounter Additional Health Concerns Assessment Noted Time PHQ-9 Depression Total Score: 0 07/21/19 21 3:00 PM CDT documented as of this encounter Care Teams Lens Molder Relationship Specialty Start Date End Date Justen Gale MD #[address] [address] PCP - General Family Medicine 10/17/17 David Roberts, RN MDS, CHIEF LIFESTYLE OFFICER #2 [place] [address] Nurse Practitioner Advanced Practice Nurse 01/31/22 documented as of this encounter
--- OUTSIDE RECORDS SUMMARY | 2024-04-26 07:44 | XMS_ITS | Encounter Summary ---
Author Organization [facility] Address [address] [place] [address] Phone Care Team Providers Care Vacuum Cleaner Repairer Name Role Phone Justen Gale MD Primary Care Provider [phone] David Roberts APRN, MULTI TOWNSHIP ASSESSOR Unavailable [phone] Reason for Visit * Reason Onset Date Comments Referral 05/04/2022 Encounter Details Date Type Department Care Team (Late st Contact Info) Description 05/04/2022 Telephone [facility] [address] [place] [address] Justen Gale MD #[address] [address] Referral Social History Tobacco Use [...] Coronavirus/COVID-19? No / Unsure 05/02/2022 3:22 PM LEVEL VIAL MARKER documented as of this encounter Miscellaneous Notes * Addendum Note - Marlys Lane RN - 05/13/2022 3:33 PM CSTAddended by: MARLYS LANE. on: 05/13/2022 03:33 PM Modules accepted: Orders L VIAL MARKER * Telephone Encounter - Marlys Lane RN - 05/13/2022 3:33 PM CST See other telephone encounter dated 05/04/22. L VIAL MARKER * Addendum Note - Marlys Lane RN - 05/04/2022 2:23 PM CSTAddended by: MARLYS LANE on: 05/04/2022 02:23 PM Modules accepted: Orders L VIAL MARKER * Telephone Encounter - Marlys Lane RN - 05/04/2022 2:11 PM CST Patient calling and stating that Dr. Ferrell is not taking new patients. States that she needs referral to be seen at the Division of All[facility] and [facility] at [facility]. States that fax number is [phone]. Called referral department to see if provider can be changed or if new referral needs placed. Howard Childs in referral department, who states that a new referral will need placed. Would provider bewilling to order new referral? New referral pended for your review. Cancelled first referral. States that she was advised to have medications that she is allergic to included in the referral. L VIAL MARKER * Telephone Encounter - Gianna Aranda RN - 05/04/2022 1:44 PM LEVEL VIAL MARKER Patient is requesting Ext allergy referral to Dr. Gil Ferrell in [place]. Dr. Ferrell tests for medication allergies and she is requesting a referral to him since she is allergic to so many antibiotics and gets frequent UTI's. Referral pended for review, please advise and notify patient. Thank you. L VIAL MARKER documented in this encounter Plan of Treatment Upcoming Encounters Date Type Department Care Team (Late st Contact Info) Description 05/17/2024 2:45 PM LEVEL VIAL MARKER Office Visit [facility] #2 [place] [address] Annel Rod MD #2 [facility] [address] [place] [address] documented as of this encounter Visit Diagnoses Diagnosis Environmental and seasonal allergies- Primary documented in this encounter Additional Health Concerns Assessment Noted Time PHQ-9 Depression Total Score: 0 07/21/19 21 3:00 PM CDT documented as of this encounter Care Teams Vacuum Cleaner Repairer Relationship Specialty Start Date End Date Justen Gale MD #2 [facility] [address] [place] [address] PCP - General Family Medicine 10/17/17 David Roberts LEARNING DESIGNER, MULTI TOWNSHIP ASSESSOR #2 [place] [address] Nurse Practitioner Advanced Practice Nurse 01/31/22 documented as of this encounter
--- OUTSIDE RECORDS SUMMARY | 2024-04-26 07:44 | XMS_ITS | Encounter Summary ---
Author Organization [facility] Address [address] [place] [address] Phone Care Team Providers Care Cash Specialist Name Role Phone Justen Gale MD Primary Care Provider [phone] David Roberts ORDER MANAGER, [employer] Unavailable [phone] Reason for Visit * Reason Comments Follow-up From the E.R Urinary Tract Infection Encounter Details Date Type Department Care Team (Late st Contact Info) Description 03/01/2022 10:00 AM SHELL WORKER Office Visit [facility] #2 [place] [phone] David Roberts, ORDER MANAGER, [employer] #2 [place] [address] Urinary tract infection without hematuria, site unspecified [...] Coronavirus/COVID-19? No / Unsure 03/03/2022 9:24 AM SHELL WORKER documented as of this encounter Last Filed Vital Signs Vital Sign Reading Time Taken Comments Blood Pressure 144/82 03/01/2022 10:21 AM SHELL WORKER Pulse 88 03/01/2022 10:21 AM SHELL WORKER Temperature 36.5 ??C (97.7 ??F) 03/01/2022 10:[address] Respiratory Rate 20 03/01/2022 10:21 AM SHELL WORKER Oxygen Saturation 98% 03/01/2022 10:21 AM SHELL WORKER Inhaled Oxygen Concentration - - Weight 132 kg (291 lb) 03/01/2022 10:21 AM SHELL WORKER Height 154.9 cm (5' 1 ) 03/01/2022 10:21 AM SHELL WORKER Body Mass Index 54.98 03/01/2022 10:21 AM SHELL WORKER documented in this encounter Progress Notes * David Roberts, ZAMZAM, [employer] - 03/01/2022 10:00 AM CST UROLOGY [facility], [address] [place] [address] PHONE: FAX: Assessment & Plan Recurrent UTI-patient [...] doctor to discuss a referral to an community pharmacist/technical assistant due to her multiple antibiotic allergies. She [...] URETHRA CONTAMINANTS. Final Susceptibility Escherichia coli - [facility] Ampicillin <=2 Susceptible mcg/ml Ampicillin/sulbactam <=2 Susceptible mcg/ml Cefazolin <=4 Susceptible mcg/ml Cefepime <=1 Susceptible mcg/ml Ceftriaxone <=1 Susceptible mcg/ml Gentamicin <=1 Susceptible mcg/ml Levofloxacin <=0.12 Susceptible mcg/ml Meropenem <=0.25 Susceptible mcg/ml Nitrofurantoin 128 Resistant mcg/ml Piperacillin/Tazobactam <=4 Susceptible mcg/ml Tobramycin <=1 Susceptible mcg/ml Trimeth/Sulfamethoxazole <=20 Susceptible mcg/ml Proteus mirabilis - [facility] Ampicillin <=2 Susceptible mcg/ml Ampicillin/sulbactam [...] encounter of 12/03/17 Urinalysis Microscopic If Indicated [id number] Result Value Ref Range Status SPECIFIC GRAVITY [...] David Roberts APRN, NETTA, 03/14/2022, 4:41 PM SHELL WORKER Primary Care Physician: Justen Gale MD L WORKER L WORKER documented in this encounter Miscellaneous Notes * Addendum Note - Sylvia Burgess III, MD - 03/01/2022 10:00 AM CSTAddended by: SYLVIA BURGESS III on: 03/14/2022 04:44 PM Modules accepted: Orders L WORKER documented in this encounter Plan of Treatment Upcoming Encounters Date Type Department Care Team (Late st Contact Info) Description 05/17/2024 2:45 PM SHELL WORKER Office Visit [facility] - [place] #[address] [place] [phone] Annel Rod MD #[address] [address] documented as of this encounter Procedures Procedure Name Priority Date/Time Associated Diagnosis Comments POCT UA AUTOMATED W/O MICRO Routine 03/01/2022 10:37 AM SHELL WORKER Urinary tract infection without hematuria, site unspecified documented in this encounter Results * (ABNORMAL) POCT UA AUTOMATED W/O MICRO (03/01/2022 10:37 AM SHELL WORKER) POC UA SPECIFIC GRAVITY 1.020 URINE PH [...] CLARITY Clear Urine 03/01/2022 10:3 7 AM SHELL WORKER David Roberts ORDER MANAGER, [employer] POINT OF CARE TESTING (MANUAL) Final Result [...] as of this encounter Care Teams Cash Specialist Relationship Specialty Start Date End Date Justen Gale MD #[address] [address] PCP - General Family Medicine 10/17/17 David Roberts APRN, [employer] #2 [place] [address] Nurse Practitioner Advanced Practice Nurse 01/31/22 documented as of this encounter
--- OUTSIDE RECORDS SUMMARY | 2024-04-26 07:44 | XMS_ITS | Encounter Summary ---
Author Organization [facility] Address [address] [place] [address] Phone Care Team Providers Care Lumber Trimmer Name Role Phone Justen Gale MD Primary Care Provider [phone] David Roberts APRN, OFFSET PRESS OPERATOR Unavailable [phone] Reason for Referral * Consult, Test & Initiate Treatment (Less Than 4 Weeks) - Closed Specialty Diagnoses / Procedures Referred By Elyssa benavides Referred To Contact Diagnoses Multiple drug allergies Pili Elkins APRN, OFFSET PRESS OPERATOR #2 [facility] [place] [facility] [address] [place] [address] Phone: tel: fax: Nader Alvaerz MD #2 [facility] [address] [place] [address] Phone: tel: fax: Referral ID Status Reason Start Date Expiration Date Visits Re quested Visits Authorized [id number] Closed 03/03/2022 1 1 Scheduling Instructions Karly [...] 2 times daily., Disp: , Rfl: nystatin 372209 UNIT/GM Powder, APPLY TO THE AFFECTED AREA [...] to 59.9 in adult (HCC) Thyroid nodule NOLOGY SPECIALIST Reason for Visit * Reason Comments Post-Hospital Follow-up Patient is here for a hospital follow up for a UTI Encounter Details Date Type Department Care Team (Late st Contact Info) Description 03/03/2022 9:30 AM IMMUNOLOGY SPECIALIST Office Visit [facility] - Family [facility] #2 [place] [address] Pili Elkins APRN, NETTA #[address] [phone] Multiple drug allergies (Primary Dx); Recurrent UTI; [...] Coronavirus/COVID-19? No / Unsure 03/03/2022 9:24 AM IMMUNOLOGY SPECIALIST documented as of this encounter Last Filed Vital Signs Vital Sign Reading Time Taken Comments Blood Pressure 138/84 03/03/2022 9:35 AM IMMUNOLOGY SPECIALIST Pulse 89 03/03/2022 9:35 AM IMMUNOLOGY SPECIALIST Temperature 36.4 ??C (97.6 ??F) 03/03/2022 9:35 AM CS T Respiratory Rate 16 03/03/2022 9:35 AM IMMUNOLOGY SPECIALIST Oxygen Saturation 98% 03/03/2022 9:35 AM IMMUNOLOGY SPECIALIST Inhaled Oxygen Concentration - - Weight 131.2 kg (289 lb 3.2 oz) 03/03/2022 9:35 AM IMMUNOLOGY SPECIALIST Height 154.9 cm (5' 1 ) 03/03/2022 9:35 AM IMMUNOLOGY SPECIALIST Body Mass Index 54.64 03/03/2022 9:35 AM IMMUNOLOGY SPECIALIST documented in this encounter Patient Instructions * Patient Instructions* Pili Elkins APRN, OFFSET PRESS OPERATOR - 03/03/2022 9:30 AM IMMUNOLOGY SPECIALIST Images from the original note were not [...] these instructions at home: Medicines ?? Take hrnz-woq-mbultuc and prescription medicines only as told by [...] monitor. You can buy one at a [employer] or online. When choosing one: ?? Choose one with an arm cuff. ?? Choose one that wraps around your upper arm. Only one finger should fit between your arm and thecuff. ?? Do not choose one that measures your blood pressure from your wrist or finger. Where to find more information [place] [employer]: www.heart.org Contact a doctor if: [...] provider. Document Revised: 02/17/2021 Document Reviewed: 04/03/2020 [employer] Patient Education ?? 2021 [employer] NOLOGY SPECIALIST documented in this encounter Progress Notes * [...] times daily. Yes Tyler Smith MD nystatin [id number] UNIT/GM Powder APPLY TO THE AFFECTED AREA THREE TIMES DAILY FOR 14 DAYS Patient not taking: Reported on 03/01/2022 11/09/21 Tyler Smith MD ondansetron (Zofran) 4 MG Tablet Take 1 Tablet by mouth every 8 hours as needed for Nausea - 1st line. Patient not taking: No sig reported 01/03/22 Dannielle Berg, JAMAR Henderson Delica Lancets 33G [facility] 1 Lancet by Does [...] No sig reported 11/09/21 Pili Elkins APRN, OFFSET PRESS OPERATOR rivaroxaban (XARELTO) 20 MG Tablet Take 20 [...] Risk, Nutrition, Advanced Care Planning and HCC NOLOGY SPECIALIST * Pili Elkins APRN, NETTA - 03/03/2022 9:30 AM CST [facility] #[address] [facility] [address] Dept: [phone] Dept Loc: [phone] Loc Patient: Karly Marques : 1955 Sex: [...] cystoscopy. She also needs a referral to data input clerk due to multiple drug allergies. Her Blood [...] by mouth 2 times daily. ??? nystatin [id number] UNIT/GM Powder APPLY TO THE AFFECTED AREA [...] admission andillness. Patient verbalized understanding. Referral for data input clerk placed. Return in about 4 months (around 07/01/2022) for pap smear. NOLOGY SPECIALIST documented in this encounter Plan of Treatment Upcoming Encounters Date Type Department Care Team (Late st Contact Info) Description 05/17/2024 2:45 PM IMMUNOLOGY SPECIALIST Office Visit [facility]ocrinology [facility] #2 [place] [address] Annel Rod MD #2 [facility] [place] [facility] [address] [place] [address] Scheduled Referrals Name Type Priority Associated Diagnoses [...] documented as of this encounter Care Teams Lumber Trimmer Relationship Specialty Start Date End Date Justen Gale MD #2 [facility] [place] [facility] [address] [place] [address] PCP - General Family Medicine 10/17/17 David Roberts APRN, NETTA #2 [place] [address] Nurse Practitioner Advanced Practice Nurse 01/31/22 documented as of this encounter
--- OUTSIDE RECORDS SUMMARY | 2024-04-26 07:44 | XMS_ITS | Encounter Summary ---
Author Organization [facility] Address [address] [place] [address] Phone Care Team Providers Care Sr. Vendor Management Associate Name Role Phone Justen Gale MD Primary Care Provider [phone] David Roberts APRN, RESOURCE RECOVERY ENGINEER Unavailable [phone] Reason for Visit * Reason Onset Date Comments Follow-up 03/21/2022 Encounter Details Date Type Department Care Team (Late st Contact Info) Description 03/21/2022 Telephone [facility] [address] [place] [address] Justen Gale MD #[address] [address] Follow-up Social History Tobacco Use [...] Coronavirus/COVID-19? No / Unsure 03/03/2022 9:24 AM DIRECTOR ADULT documented as of this encounter Miscellaneous Notes * Telephone Encounter - Nat Hernandez RN - 03/21/2022 10:09 AM DIRECTOR ADULT Informed Jimmie on prd notified of the response. CTOR ADULT * Telephone Encounter - Kristine Jacobo - 03/21/2022 8:41 AM CST Images from the original note were not included. Justen Young MD You 32 minutes ago (8:08 AM) yes CTOR ADULT * Telephone Encounter - Kristine Jacobo - 03/21/2022 8:02 AM CST SITUATION: Appointment Bryan ( + PRD) calling BACKGROUND: ASSESSMENT: Patient is at [facility] now so will not make appointment Tomorrow She is to have tests run today Should she have the thyroid US done at the [facility] ? CTOR ADULT CTOR ADULT documented in this encounter Plan of Treatment Upcoming Encounters Date Type Department Care Team (Late st Contact Info) Description 05/17/2024 2:45 PM DIRECTOR ADULT Office Visit [facility] - [place] #[address] [place] [phone] Annel Rod MD #[address] [address] documented as of this encounter Visit Diagnoses Not on filedocumented in this encounter Additional Health Concerns Assessment Noted Time PHQ-9 Depression Total Score: 0 07/21/19 21 3:00 PM CDT documented as of this encounter Care Teams Sr. Vendor Management Associate Relationship Specialty Start Date End Date Justen Gale MD #[address] [address] PCP - General Family Medicine 10/17/17 David Roberts APRN, RESOURCE RECOVERY ENGINEER #2 [facility] [place] [address] Nurse Practitioner Advanced Practice Nurse 01/31/22 documented as of this encounter
--- OUTSIDE RECORDS SUMMARY | 2024-04-26 07:44 | XMS_ITS | Encounter Summary ---
Author Organization [facility] Address [address] [place] [address] Phone Care Team Providers Care Rubber Goods Tester Name Role Phone Justen Gale MD Primary Care Provider [phone] David Roberts APRN, JINGLE WRITER Unavailable [phone] Reason for Visit * Reason Comments Medication Refill Encounter Details Date Type Department Care Team (Late st Contact Info) Description 06/15/2022 Refill [facility] #2 [place] [phone] Justen Gale MD #[address] [address] Medication Refill Social History Tobacco Use Types [...] Lety Man RN - 06/16/2022 9:58 AM ENGRAVER BLOCK Medication(s) [facility]illed and [facility] Medication Refill Standing Order for Pediatricand Adult Patients. Requested Prescriptions Pending Prescriptions Disp Refills ??? B-D ULTRAFINE III SHORT PEN 31G X 8 MM Misc [Pharmacy Med Name: B-D PEN NDL SHRT [id number](09/06) KIT] Sig: USE 6 TIMES DAILY DIRECTED Diabetic Supplies Protocol Passed - 06/15/2022 12:56 PM Passed - Visit with relevant provider in past 6 months Recent Visits Date Type Provider Dept 05/02/22 Office Visit Justen Gale MD [facility] 03/03/22 Office Visit Pili Elkins APRN, NETTA [facility] 01/03/22 Office Visit Dannielle Berg PAC [facility] Showing recent visits within past 182 days and meeting all other requirements Future Appointments Date Type Provider Dept 07/05/22 Appointment Pili Elkins APRN, NETTA [facility] Showing future appointments within next 90 days and meeting all other requirements AVER BLOCK documented in this encounter Plan of Treatment Upcoming Encounters Date Type Department Care Team (Late st Contact Info) Description 05/17/2024 2:45 PM ENGRAVER BLOCK Office Visit [facility] - Endocrinology - [place] #[address] [place] [address] Annel Rod MD #[address] [place] [address] documented as of this encounter Visit Diagnoses Not on filedocumented in this encounter Additional Health Concerns Assessment Noted Time PHQ-9 Depression Total Score: 0 07/21/19 21 3:00 PM CDT documented as of this encounter Care Teams Rubber Goods Tester Relationship Specialty Start Date End Date Justen Gale MD #[address] [address] PCP - General Family Medicine 10/17/17 David Roberts APRN, NETTA #2 [facility] [place] [address] Nurse Practitioner Advanced Practice Nurse 01/31/22 documented as of this encounter
--- OUTSIDE RECORDS SUMMARY | 2024-04-26 07:44 | XMS_ITS | Encounter Summary ---
Author Organization [facility] Address [address] [place] [address] Phone Care Team Providers Care Effervescent Salts Compounder Name Role Phone Justen Gale MD Primary Care Provider [phone] David Roberts APRN, TIRE REBUILDER Unavailable [phone] Reason for Referral * Radiology Services (Routine) - Closed Specialty Diagnoses / Procedures Referred By Elyssa benavides Referred To Contact Radiology Diagnoses Thyroid nodule Procedures US GUIDANCE AND THYROID FINE NEEDLE ASPIRATION US GUIDANCE AND THYROID BIOPSY Justen Gale MD #[address] [address] Phone: tel: fax: Referral ID Status Reason Start Date Expiration Date Visits Re quested Visits Authorized [id number] Closed 03/29/2022 1 1 O/TV TECHNICIAN Reason for Visit * Reason Onset Date Comments Results 03/29/2022 Encounter Details Date Type Department Care Team (Late st Contact Info) Description 03/29/2022 Telephone [facility] Medicine [facility] #2 [place] [address] Jsuten Gale MD #[address] [address] Results Social History Tobacco Use Types Packs/Day [...] Coronavirus/COVID-19? No / Unsure 03/03/2022 9:24 AM RADIO/TV TECHNICIAN documented as of this encounter Miscellaneous Notes * Telephone Encounter - Stacy Huang RN - 03/29/2022 1:59 PM CST Called and let patient know, she stated that she understood. O/TV TECHNICIAN * Telephone Encounter - Justen Gale MD - 03/29/2022 12:29 PM CST Please call. You have a thyroid nodule and you need a biopsy to rule out cancer I will order that O/TV TECHNICIAN documented in this encounter Plan of Treatment Upcoming Encounters Date Type Department Care Team (Late st Contact Info) Description 05/17/2024 2:45 PM RADIO/TV TECHNICIAN Office Visit [facility] - [place] #2 [place] [phone] Annel Rod MD #[address] [phone] documented as of this encounter Results * US GUIDANCE AND THYROID FINE NEEDLE ASPIRATION (04/22/2022 10:25 AM RADIO/TV TECHNICIAN) Anatomical Region Laterality Modality BODY N/A Ultrasound 04/22/2022 1:01 PM RADIO/TV TECHNICIAN Addenda Addendum by Giovanni Tavares MD on 04/26/2022 10:13 AM RADIO/TV TECHNICIAN ADDENDUM REPORT: ADDENDUM: ??PATHOLOGY ADDENDUM: ??04/26/2022 Final [...] PM T: ??04/22/2022 1:01 PM Report ID: [id number] Reading Location: ??[id number] THIS IS AN ELECTRONICALLY VERIFIED FINAL REPORT 04/26/2022 10:10 AM ??Addendum Electronically signed by Giovanni Tavares M.D. AG: BAKARI D: ??04/26/2022 10:10 AM T: ??04/26/2022 10:10 AM Report ID: [id number] Reading Location: ??[id number] Impressions 04/22/2022 1:04 PM RADIO/TV TECHNICIAN IMPRESSION: Ultrasound guided fine-needle aspiration of a ??right ?? thyroid nodule. ??Pathology is pending. Narrative 04/22/2022 1:04 PM RADIO/TV TECHNICIAN EXAM DESCRIPTION: ?? US GUIDANCE AND THYROID [...] PM T: ??04/22/2022 1:01 PM Report ID: [id number] Reading Location: ??[id number] Procedure Note Giovanni Tavares MD - 04/22/2022 [...] Giovanni Tavares M.D. AG: BAKARI Report ID: [id number] Reading Location: [place] [address] IMPRESSION: Ultrasound guided fine-needle aspiration of a right thyroid nodule. Pathology is pending. us Justen Gale MD [facility] ORDERABLES Edited Resu lt - Final documented in this encounter Visit Diagnoses Diagnosis Thyroid nodule- Primary Nontoxic uninodular goiter Thyroid nodule Nontoxic uninodular goiter documented in this encounter Additional Health Concerns Assessment Noted Time PHQ-9 Depression Total Score: 0 07/21/19 21 3:00 PM CDT documented as of this encounter Care Teams Effervescent Salts Compounder Relationship Specialty Start Date End Date Justen Gale MD #[address] [address] PCP - General Family Medicine 10/17/17 David Roberts, FARM EQUIPMENT ASSEMBLER, TIRE REBUILDER #2 [place] [address] Nurse Practitioner Advanced Practice Nurse 01/31/22 documented as of this encounter
--- OUTSIDE RECORDS SUMMARY | 2024-04-26 07:44 | XMS_ITS | Encounter Summary ---
Author Organization [facility] Address [address] [place] [address] Phone Care Team Providers Care Building Insulation Installer Name Role Phone Justen Gale MD Primary Care Provider [phone] David Roberts APRN, TRIMMER PRESS CLIPPINGS Unavailable [phone] Reason for Visit * Reason Onset Date Comments Dizziness 05/14/2022 Headache 05/14/2022 Encounter Details Date Type Department Care Team (Late st Contact Info) Description 05/14/2022 Nurse Triage [facility] [address] [place] [address] Justen Gale MD #[address] [address] Dizziness; Headache Social History Tobacco [...] Coronavirus/COVID-19? No / Unsure 05/02/2022 3:22 PM APPLICATIONS MANAGER documented as of this encounter Miscellaneous [...] drive you. Patient will be going to [facility] in [facility] If symptoms increase, change, or if new symptoms develop, patient to report to emergency room. Verified and reviewed all information with caller. Caller verbalized understanding of information given and denies further questions. Teach-back method utilized. Reason for Disposition ??? SEVERE dizziness (vertigo) (e.g., unable to walk without assistance) Protocols used: DIZZINESS - [id number] ICATIONS MANAGER documented in this encounter Plan of Treatment Upcoming Encounters Date Type Department Care Team (Late st Contact Info) Description 05/17/2024 2:45 PM APPLICATIONS MANAGER Office Visit [facility] - [place] #2 [place] [address] Annel Rod MD #[address] [facility] [address] [place] [address] documented as of this encounter Visit Diagnoses Not on filedocumented in this encounter Additional Health Concerns Assessment Noted Time PHQ-9 Depression Total Score: 0 07/21/19 21 3:00 PM CDT documented as of this encounter Care Teams Building Insulation Installer Relationship Specialty Start Date End Date Justen Gale MD #[address] [facility] [address] [place] [address] PCP - General Family Medicine 10/17/17 David Roberts, CLAM SORTER, TRIMMER PRESS CLIPPINGS #2 [place] [address] Nurse Practitioner Advanced Practice Nurse 01/31/22 documented as of this encounter
--- OUTSIDE RECORDS SUMMARY | 2024-04-26 07:44 | XMS_ITS | Encounter Summary ---
Author Organization [facility] Address [address] [place] [address] Phone Care Team Providers Care Certified Professional Ergonomist Name Role Phone Justen Gale MD Primary Care Provider [phone] David Roberts APRN, TILE ERECTOR Unavailable [phone] Reason for Visit * Reason Onset Date Comments Rash 04/24/2022 Leg Swelling 04/24/2022 Encounter Details Date Type Department Care Team (Late st Contact Info) Description 04/24/2022 [facility] [address] [place] [address] Justen Gale MD #[address] [address] Rash; Leg Swelling Social History [...] Coronavirus/COVID-19? No / Unsure 04/22/2022 9:06 AM HELMET HAT PUNCHER documented as of this encounter Miscellaneous Notes * Telephone Encounter - Johanna Almonte RN - 04/24/2022 10:58 PM HELMET HAT PUNCHER SITUATION: Leg swelling/Rash BACKGROUND: Patient calling after [...] rash to inner calf of left leg. Holland down calf, puffy/mildly swollen but not large [...] side Protocols used: LEG SWELLING AND EDEMA-A-AH ET HAT PUNCHER documented in this encounter Plan of Treatment Upcoming Encounters Date Type Department Care Team (Late st Contact Info) Description 05/17/2024 2:45 PM HELMET HAT PUNCHER Office [facility] #2 [place] [address] [facility]el Rod MD [facility] [address] [place] [address] documented as of this encounter Visit Diagnoses Not on filedocumented in this encounter Additional Health Concerns Assessment Noted Time PHQ-9 Depression Total Score: 0 07/21/19 21 3:00 PM CDT documented as of this encounter Care Teams Certified Professional Ergonomist Relationship Specialty Start Date End Date Justen Gale MD #[address] [address] PCP - General Family Medicine 10/17/17 David Roberts, BIOINFORMATICS SPECIALIST, TILE ERECTOR #2 [place] [address] Nurse Practitioner Advanced Practice Nurse 01/31/22 documented as of this encounter
--- OUTSIDE RECORDS SUMMARY | 2024-04-26 07:45 | XMS_ITS | Encounter Summary ---
Author Organization [facility] Address [address] [place] [address] Phone Care Team Providers Care Diesel Pile Driver Operator Name Role Phone Justen Gale MD Primary Care Provider Encounter Details Date Type Department Care Team (Late st Contact Info) Description 01/17/2022 Telephone [facility] #2 [place] [address] Justen Gale MD #[address] [address] Social History Tobacco Use Types Packs/Day Years [...] 11:45 AM CDT ----- Regarding: Fax Clinicals [facility]: Allie calling from [employer] is calling in to request clinicals to be faxed over to [phone] in order to process her supplies. Please call Suleman [phone] (relationship to patient provider) back regarding above referenced patient. Patient's Provider is Justen Gale MD. documented in this encounter Plan of Treatment Upcoming Encounters Date Type Department Care Team (Late st Contact Info) Description 05/17/2024 2:45 PM AIR DEFENCE OFFICER Office Visit [facility] #2 [place] [address] Annel Rod MD #2 [facility] [address] [place] [address] documented as of this encounter Visit Diagnoses Not on filedocumented in this encounter Additional Health Concerns Assessment Noted Time PHQ-9 Depression Total Score: 0 07/21/19 21 3:00 PM CDT documented as of this encounter Care Teams Diesel Pile Driver Operator Relationship Specialty Start Date End Date Justen Gale MD #2 [facility] [address] [place] [address] PCP - General Family Medicine 10/17/17 documented as of this encounter
--- OUTSIDE RECORDS SUMMARY | 2024-04-26 07:45 | XMS_ITS | Encounter Summary ---
Author Organization [facility] Address [address] [place] [address] Phone Care Team Providers Care Employee Benefits Specialist Name Role Phone Justen Gale MD Primary Care Provider Encounter Details Date Type Department Care Team (Late st Contact Info) Description 01/26/2022 Telephone [facility] #2 [place] [address] Justen Gale MD #[address] [address] Social History Tobacco Use Types Packs/Day Years [...] st Contact Info) Description 05/17/2024 2:45 PM SEAMER ELASTIC BAND Office Visit [facility] - [place] #2 [place] [address] Annel Rod MD #2 [facility] [address] [place] [address] documented as of this encounter Visit Diagnoses Not on filedocumented in this encounter Additional Health Concerns Assessment Noted Time PHQ-9 Depression Total Score: 0 07/21/19 21 3:00 PM CDT documented as of this encounter Care Teams Employee Benefits Specialist Relationship Specialty Start Date End Date Justen Gale MD #2 [facility] [address] [place] [address] PCP - General Family Medicine 10/17/17 documented as of this encounter
--- OUTSIDE RECORDS SUMMARY | 2024-04-26 07:45 | XMS_ITS | Encounter Summary ---
Author Organization [facility] Address [address] [place] [address] Phone Care Team Providers Care Field Services Manager Name Role Phone Justen Gale MD Primary Care Provider [phone] David Roberts APRN, LANGUAGE PATHOLOGIST Unavailable [phone] Reason for Referral * Consult, Test & Initiate Treatment (Routine) - Closed Specialty Diagnoses / Procedures Referred By Elyssa benavides Referred To Contact Diagnoses Malignant neoplasm of upper-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, unspecified estrogen receptor status (HCC) Justen Gale MD #[address] [address] Phone: tel: fax: Referral ID Status Reason Start Date Expiration Date Visits Re quested Visits Authorized [id number] Closed 02/21/2022 12 12 Scheduling Instructions Karly [...] Liquid, as needed, Disp: , Rfl: nystatin [id number] UNIT/GM Powder, APPLY TO THE AFFECTED AREA [...] Contact Info) Description 02/21/2022 Telephone [facility] #2 [place] [address] Justen Gale MD #[address] [address] Referral Social History Tobacco Use Types Packs/Day [...] CDT Received a call from Angelita with [facility] asking for a referral to Hematology /Oncology. Referral pended documented in this encounter Plan of Treatment Upcoming Encounters Date Type Department Care Team ([facility] Contact Info) Description 05/17/2024 2:45 PM BACK ROLLER Office Visit [facility] - [place] #[address] [place] [address] Annel Rod MD #[address] [address] Scheduled Referrals Name Type Priority Associated Diagnoses [...] as of this encounter Care Teams Field Services Manager Relationship Specialty Start Date End Date Justen Gale MD [facility] [address] [address] PCP - General Family Medicine 10/17/17 David Roberts APRN, LANGUAGE PATHOLOGIST [facility] [place] [address] Nurse Practitioner Advanced Practice Nurse 01/31/22 documented as of this encounter
--- OUTSIDE RECORDS SUMMARY | 2024-04-26 07:45 | XMS_ITS | Encounter Summary ---
Author Organization [facility] Address [address] [place] [address] Phone Care Team Providers Care Booster Pump Oiler Name Role Phone Justen Gale MD Primary Care Provider [phone] Reason for Visit * Reason Onset Date Comments Results 01/05/2022 Encounter Details Date Type Department Care Team (Late st Contact Info) Description 01/05/2022 Telephone [facility] [address] [place] [address] David Roberts, BIN OPERATOR, ICING MACHINE OPERATOR #2 [place] [address] Results Social History Tobacco Use Types Packs/Day [...] Miscellaneous Notes * Telephone Encounter - Sonali Murrell RN - 01/12/2022 2:47 PM CDT Patient [...] st Contact Info) Description 05/17/2024 2:45 PM ACID PATROLLER Office Visit [facility] - Endocrinology [facility] #2 [place] [address] Annel Rod MD #2 [facility] [address] [place] [address] documented as of this encounter Visit Diagnoses Not on filedocumented in this encounter Additional Health Concerns Assessment Noted Time PHQ-9 Depression Total Score: 0 07/21/19 3:00 PM CDT documented as of this encounter Care Teams Booster Pump Oiler Relationship Specialty Start Date End Date Justen Gale MD #2 [facility] [address] [place] [address] PCP - General Family Medicine 10/17/17 documented as of this encounter
--- OUTSIDE RECORDS SUMMARY | 2024-04-26 07:45 | XMS_ITS | Encounter Summary ---
Author Organization [facility] Address [address] [place] [address] Phone Care Team Providers Care Lithographic Press Feeder Name Role Phone Justen Gale MD Primary Care Provider [phone] Reason for Visit * Reason Comments Medication Refill Encounter Details Date Type Department Care Team (Late st Contact Info) Description 01/20/2022 Refill [facility] #2 [place] [address] Justen Gale MD #[address] [address] Medication Refill Social History Tobacco Use Types [...] PM CDT [facility]) [facility] Medication Refill Standing Order for [...] Dept 01/03/22 Office Visit Dannielle Berg PAC [facility] 12/07/21 Office Visit Pili Elkins APRN, NETTA [facility] 11/09/21 Office Visit Pili Elkins APRN, DRIER FEEDER [facility] 10/08/21 Office Visit Angelito Alegria APRN, [facility] 08/30/21 Office Visit Justen Gale MD [facility] Showing recent visits within past 365 days [...] st Contact Info) Description 05/17/2024 2:45 PM ASSISTANT FITNESS MANAGER Office Visit [facility] - Endocrinology - [place] #[address] [place] [address] Annel Rod MD #[address] [address] documented as of this encounter Visit Diagnoses Not on filedocumented in this encounter Additional Health Concerns Assessment Noted Time PHQ-9 Depression Total Score: 0 07/21/19 21 3:00 PM CDT documented as of this encounter Care Teams Lithographic Press Feeder Relationship Specialty Start Date End Date Justen Gale MD #[address] [place] [address] PCP - General Family Medicine 10/17/17 documented as of this encounter
--- OUTSIDE RECORDS SUMMARY | 2024-04-26 07:45 | XMS_ITS | Encounter Summary ---
Author Organization [facility] Address [address] [facility] [place] [address] Phone Care Team Providers Care Filling And Packing Supervisor Name Role Phone Justen Gale MD Primary Care Provider [phone] Reason for Visit * Reason Onset Date Comments Dizziness 01/28/2022 Encounter Details Date Type Department Care Team (Late st Contact Info) Description 01/28/2022 Nurse Triage [facility] [address] [place] [address] Justen Gale MD #[address] [address] Dizziness Social History Tobacco Use Types Packs/Day [...] AND no different/worse than usual) Protocols used: [id number] Advised patient to go to ED for evaluation. She voices understanding and is agreeable. Assistive services verified. Allergies, medications, and pharmacy verified. documented in this encounter Plan of Treatment Upcoming Encounters Date Type Department Care Team (Late st Contact Info) Description 05/17/2024 2:45 PM JEWEL BEARING DRILLER Office Visit [facility] - Endocrinology - [place] #2 [place] [address] Annel Rod MD #2 [facility] [address] [place] [address] documented as of this encounter Visit Diagnoses Not on filedocumented in this encounter Additional Health Concerns Assessment Noted Time PHQ-9 Depression Total Score: 0 07/21/19 21 3:00 PM CDT documented as of this encounter Care Teams Filling And Packing Supervisor Relationship Specialty Start Date End Date Justen Gale MD #2 [facility] [address] [place] [address] PCP - General Family Medicine 10/17/17 documented as of this encounter
--- OUTSIDE RECORDS SUMMARY | 2024-04-26 07:45 | XMS_ITS | Encounter Summary ---
Author Organization [facility] Address [address] [place] [address] Phone Care Team Providers Care Mutual Fund Manager Name Role Phone Justen Gale MD Primary Care Provider [phone] Encounter Details Date Type Department Care Team (Late st Contact Info) Description 01/07/2022 Telephone [facility] #2 [place] [address] Lopez Neil MD #[address] [address] Social History Tobacco Use Types [...] st Contact Info) Description 05/17/2024 2:45 PM BATH STEWARD Office Visit [facility] - [place] #2 [place] [address] Annel Rod MD #2 [facility] [address] [place] [address] documented as of this encounter Visit Diagnoses Not on filedocumented in this encounter Additional Health Concerns Assessment Noted Time PHQ-9 Depression Total Score: 0 07/21/19 21 3:00 PM CDT documented as of this encounter Care Teams Mutual Fund Manager Relationship Specialty Start Date End Date Justen Gale MD #2 [facility] [address] [place] [address] PCP - General Family Medicine 10/17/17 documented as of this encounter
--- OUTSIDE RECORDS SUMMARY | 2024-04-26 07:45 | XMS_ITS | Encounter Summary ---
Author Organization [facility] Address [address] [place] [address] Phone Care Team Providers Care Supervisory Aide Name Role Phone Justen Gale MD Primary Care Provider [phone] Reason for Visit * Reason Onset Date Comments Advice Only 01/07/2022 Encounter Details Date Type Department Care Team (Late st Contact Info) Description 01/07/2022 Telephone [facility] [address] [place] [address] Justen Gale MD #[address] [address] Advice Only Social History Tobacco Use Types [...] st Contact Info) Description 05/17/2024 2:45 PM WATCH SUPERVISOR Office Visit [facility] - [place] #2 [place] [address] Annel Rod MD #2 [facility] [address] [place] [address] documented as of this encounter Visit Diagnoses Not on filedocumented in this encounter Additional Health Concerns Assessment Noted Time PHQ-9 Depression Total Score: 0 07/21/19 21 3:00 PM CDT documented as of this encounter Care Teams Supervisory Aide Relationship Specialty Start Date End Date Justen Gale MD #2 [facility] [address] [place] [address] PCP - General Family Medicine 10/17/17 documented as of this encounter
--- OUTSIDE RECORDS SUMMARY | 2024-04-26 07:46 | XMS_ITS | Encounter Summary ---
Author Organization [employer] Care Team Providers Care Head Of Global Strategic Partnerships Name Role Phone Justen Gale MD Primary Care Provider [phone] Encounter Details Date Type Department Care Team [...] Contact Info) Description 05/17/2024 2:45 PM RANCH COOK [facility] Visit [facility] - [place] #[address] [place] [address] Annel Rod MD #[address] [address] documented as of this encounter Visit Diagnoses Not on filedocumented in this encounter Additional Health Concerns Assessment Noted Time PHQ-9 Depression Total Score: 0 07/21/19 21 3:00 PM CDT documented as of this encounter Care Teams Head Of Global Strategic Partnerships Relationship Specialty Start Date End Date Justen Gale MD #2 [place] [address] PCP - General Family Medicine 10/17/17 documented as of this encounter
--- OUTSIDE RECORDS SUMMARY | 2024-04-26 07:46 | XMS_ITS | Encounter Summary ---
Author Organization [facility] Address [address] [place] [address] Phone Care Team Providers Care Bender Machine Operator Name Role Phone Justen Gale MD Primary Care Provider [phone] Reason for Visit * Reason Comments Urinary Tract Infection Frequent Encounter Details Date Type Department Care Team (Late st Contact Info) Description 01/04/2022 9:45 AM CDT Office Visit [facility] #2 [place] [address] David Roberts, MEDICARE SPECIALIST, COMMODITY BUYER #2 [place] [address] Urinary tract infection without hematuria, site unspecified [...] encounter Progress Notes * David Roberts, ZAMZAM, COMMODITY BUYER - 01/04/2022 9:45 AM CDT UROLOGY [facility] 2 [facility], [address] [place] [address] PHONE: FAX: Assessment & Plan Recurrent UTI-we discussed UTI prevention strategies such as increasing fluid intake to 1.5 L of water per day, cranberry supplements, and Thera works wipes. Patient will scrap picker Thera works wipes. Will send urine [...] URETHRA CONTAMINANTS. Final Susceptibility Escherichia coli - [facility] IIB Ampicillin <=2 Susceptible mcg/ml Ampicillin/sulbactam <=2 Susceptible mcg/ml Cefazolin <=4 Susceptible mcg/ml Cefepime <=1 Susceptible mcg/ml Ceftriaxone <=1 Susceptible mcg/ml Gentamicin <=1 Susceptible mcg/ml Levofloxacin <=0.12 Susceptible mcg/ml Meropenem <=0.25 Susceptible mcg/ml Nitrofurantoin 128 Resistant mcg/ml Piperacillin/Tazobactam <=4 Susceptible mcg/ml Tobramycin <=1 Susceptible mcg/ml Trimeth/Sulfamethoxazole <=20 Susceptible mcg/ml Proteus mirabilis - [facility] IIB Ampicillin <=2 Susceptible mcg/ml [...] encounter of 12/03/17 Urinalysis Microscopic If Indicated [id number] Result Value Ref Range Status SPECIFIC GRAVITY [...] collected per standing order of David Roberts PIGMENT MAKING SUPERVISOR on 01/04/2022 PVR= 0 ML documented in this encounter Plan of Treatment Upcoming Encounters Date Type Department Care Team (Late st Contact Info) Description 05/17/2024 2:45 PM ENGINEERING MATHEMATICIAN Office Visit [facility] Endocrin[facility] #2 [place] [address] Annel Rod MD #[address] [address] Scheduled Orders Name Type Priority Associated Diagnoses [...] ESCHERICHIA COLI 01/07/2022 8:29 AM CDT [facility] CULTURE RESULTS PROTEUS MIRABILIS 01/07/2022 8:29 AM CDT [facility] C[facility] RES[facility] ALSO MIXED GROWTH OF DISTAL URETHRA CONTAMINANTS. 01/07/2022 8:29 AM CDT [facility] Culture URINE SPECIMEN COLLECTION, CLEAN CATCH [...] IIB <=20 mcg/ml: Susceptible us David Roberts MEDICARE SPECIALIST, COMMODITY BUYER MICROBIOLOGY - GENERAL ORDERABLES Final Result [facility] [address] [place] [address], documented in this encounter Visit Diagnoses Diagnosis Urinary tract infection without hematuria, site unspecified- Primary documented in this encounter Additional Health Concerns Assessment Noted Time PHQ-9 Depression Total Score: 0 07/21/19 21 3:00 PM CDT documented as of this encounter Care Teams Bender Machine Operator Relationship Specialty Start Date End Date Justen Gale MD #[address] [address] PCP - General Family Medicine 10/17/17 documented as of this encounter
--- OUTSIDE RECORDS SUMMARY | 2024-04-26 07:46 | XMS_ITS | Encounter Summary ---
Author Organization [employer] Care Team Providers Care Scheduling Specialist Name Role Phone Justen Gale MD Primary Care Provider [phone] Encounter Details Date Type Department Care Team [...] st Contact Info) Description 05/17/2024 2:45 PM BAG LOADER MACHINE OPERATOR [facility] - [place] #[address] [place] [address] Annel Rod MD #[address] [address] documented as of this encounter Visit Diagnoses Not on filedocumented in this encounter Additional Health Concerns Assessment Noted Time PHQ-9 Depression Total Score: 0 07/21/19 21 3:00 PM CDT documented as of this encounter Care Teams Scheduling Specialist Relationship Specialty Start Date End Date Justen Gale MD #2 [place] [address] PCP - General Family Medicine 10/17/17 documented as of this encounter
--- OUTSIDE RECORDS SUMMARY | 2024-04-26 07:46 | XMS_ITS | Encounter Summary ---
Author Organization [facility] Address [address] [place] [address] Phone Care Team Providers Care Furnace Erector Name Role Phone Justen Gale MD Primary Care Provider [phone] Reason for Referral * PT/OT/ST (Less Than 1 Week) - Closed Specialty Diagnoses / Procedures Referred By Contac t Referred To Contact Diagnoses Chronic sore throat Pili Elkins APRN, INTERNATIONAL ACCOUNT REPRESENTATIVE [address] [address] Phone: tel: fax: Nader Uriostegui MD [address] [place] [address] Phone: tel: fax: Referral ID Status Reason Start Date Expiration Date Visits Re quested Visits Authorized [id number] Closed 12/07/2021 1 1 Scheduling Instructions Karly [...] Liquid, as needed, Disp: , Rfl: nystatin [id number] UNIT/GM Powder, APPLY TO THE AFFECTED AREA [...] CDT [facility] [place] [address] Pili Elkins APRN, NETTA [address] [phone] Chronic sore throat (Primary Dx); Infection of [...] as needed 05/13/21 Tyler Smith MD nystatin [id number] UNIT/GM Powder APPLY TO THE AFFECTED AREA [...] APRN, CNP - 12/07/2021 1:45 PM CDT [facility] [place] [address] Dept: [phone] Dept Loc: [phone] Loc Patient: Karly Marques : 1955 Sex: [...] 4 MG/0.1ML Liquid as needed ??? nystatin [id number] UNIT/GM Powder APPLY TO THE AFFECTED AREA [...] Report dictated by David Charlton MD, PhD (associate vice president). I, Dr. VI JENNINGS have personally reviewed [...] by Amador Lopez (resident) I, Dr. VI JENNINGS have personally reviewed and interpreted this examination/study. This report was electronically signed by VI JENNINGS on 11/12/2021 8:59 AM . Medical Decision Making: Assessment & Plan Diagnoses and all orders for this visit: Chronic sore throat - EXTERNAL ENT REFERRAL; Future - nystatin (MYCOSTATIN) [id number] UNIT/ML Suspension; Take 5 mL by mouth 4 times daily for 10 days. Apply to inside of each cheek. Infection of deep incisional surgical site after procedure, subsequent encounter Other orders - nystatin [id number] UNIT/GM Powder; APPLY TO THE AFFECTED AREA [...] st Contact Info) Description 05/17/2024 2:45 PM POLE INCISOR OPERATOR Office Visit [facility] - [place] #2 [facility] [place] [address] Annel Rod MD #2 [facility] [address] [place] [address] documented as of this encounter Procedures Procedure Name Priority Date/Time Associated Diagnosis Comments EXTERNAL ENT REFERRAL Less Than 1 week 12/14/2021 12:00 AM CDT Chronic sore throat documented in this encounter Results * EXTERNAL ENT REFERRAL (12/14/2021 12:00 AM CDT) 12/14/2021 Pili Elkins INDUCTION HEATING EQUIPMENT SETTER, INTERNATIONAL ACCOUNT REPRESENTATIVE OUTPT REFERRALS EXT/ INT Final Result SCAN documented in this encounter Visit Diagnoses Diagnosis Chronic sore throat- Primary Chronic pharyngitis Infection of deep incisional surgical site after procedure, subsequent encounter documented in this encounter Additional Health Concerns Assessment Noted Time PHQ-9 Depression Total Score: 0 07/21/19 21 3:00 PM CDT documented as of this encounter Care Teams Furnace Erector Relationship Specialty Start Date End Date Justen Gale MD #2 [facility] [address] [place] [address] PCP - General Family Medicine 10/17/17 documented as of this encounter
--- OUTSIDE RECORDS SUMMARY | 2024-04-26 07:46 | XMS_ITS | Encounter Summary ---
Author Organization [facility] Address [address] [place] [address] Phone Care Team Providers Care Accounts Receivable Administrator Name Role Phone Justen Gale MD Primary Care Provider [phone] Reason for Visit * Reason Onset Date Comments Results 01/04/2022 Encounter Details Date Type Department Care Team (Late st Contact Info) Description 01/04/2022 Telephone [facility] #2 [place] [address] Dannielle Berg, JAMAR #2 [place] [address] Results Social History Tobacco Use [...] st Contact Info) Description 05/17/2024 2:45 PM BED SPRING MAKER Office Visit [facility] - Endocrinology - [place] #2 [place] [address] Annel Rod MD #2 [facility] [address] [place] [address] documented as of this encounter Visit Diagnoses Not on filedocumented in this encounter Additional Health Concerns Assessment Noted Time PHQ-9 Depression Total Score: 0 07/21/19 21 3:00 PM CDT documented as of this encounter Care Teams Accounts Receivable Administrator Relationship Specialty Start Date End Date Justen Gale MD #2 [facility] [address] [place] [address] PCP - General Family Medicine 10/17/17 documented as of this encounter
--- OUTSIDE RECORDS SUMMARY | 2024-04-26 07:46 | XMS_ITS | Encounter Summary ---
Author Organization [facility] Address [address] [place] [address] Phone Care Team Providers Care Geospatial Intelligence Analyst Name Role Phone Justen Gale MD Primary Care Provider [phone] Reason for Visit * Reason Comments Medication Refill Encounter Details Date Type Department Care Team (Late st Contact Info) Description 12/03/2021 Refill [facility] #2 [place] [address] Justen Gale MD #[address] [address] Medication Refill Social History Tobacco Use Types [...] AM CDT Medication[facility]) [facility] Medication Refill Standing Order [...] 11/09/21 Office Visit Pili Elkins APRN, NETTA [facility] [place] 10/08/21 Office Visit Angelito Alegria APRN, CNP [facility] [place] 08/30/21 Office Visit Justen Gale MD [facility] Showing recent visits within past 270 days and meeting all other requirements Future Appointments Date Type Provider Dept 12/07/21 Appointment Pili Elkins APRN, NETTA [facility] [place] Showing future appointments within next 90 days and meeting all other requirements Passed - Blood pressure on record in past 12 months Clinician-entered: BP Readings from Last 3 Encounters: 11/09/21 108/72 10/08/21 136/66 08/30/21 122/88 Patient-entered: No data recorded documented in this encounter Plan of Treatment Upcoming Encounters Date Type Department Care Team (Late st Contact Info) Description 05/17/2024 2:45 PM TRAILER ASSEMBLER Office Visit [facility] - [place] [address] [place] [address] Annel Rod MD #[address] [address] documented as of this encounter Visit Diagnoses Not on filedocumented in this encounter Additional Health Concerns Assessment Noted Time PHQ-9 Depression Total Score: 0 07/21/19 21 3:00 PM CDT documented as of this encounter Care Teams Geospatial Intelligence Analyst Relationship Specialty Start Date End Date Justen Gale MD #[address] [address] PCP - General Family Medicine 10/17/17 documented as of this encounter
--- OUTSIDE RECORDS SUMMARY | 2024-04-26 07:46 | XMS_ITS | Encounter Summary ---
Author Organization [facility] Address [address] [place] [address] Phone Care Team Providers Care Asphalt Tar And Gravel Roofer Name Role Phone Justen Gale MD Primary Care Provider [phone] Reason for Visit * Reason Onset Date Comments Vascular Access Problem 11/11/2021 Encounter Details Date Type Department Care Team (Late st Contact Info) Description 11/11/2021 Nurse Triage [facility] [address] [place] [address] Justen Glae MD #[address] [address] Vascular Access Problem Social History Tobacco Use [...] lower extremity) Protocols used: IV SITE (SKIN) [id number] documented in this encounter Plan of Treatment Upcoming Encounters Date Type Department Care Team (Late st Contact Info) Description 05/17/2024 2:45 PM PUBLIC HEALTH PROFESSOR Office Visit [facility] - [place] #2 [place] [address] Annel Rod MD #2 [facility] [address] [place] [address] documented as of this encounter Visit Diagnoses Not on filedocumented in this encounter Additional Health Concerns Assessment Noted Time PHQ-9 Depression Total Score: 0 07/21/19 21 3:00 PM CDT documented as of this encounter Care Teams Asphalt Tar And Gravel Roofer Relationship Specialty Start Date End Date Justen Gale MD #2 [facility] [address] [place] [address] PCP - General Family Medicine 10/17/17 documented as of this encounter
--- OUTSIDE RECORDS SUMMARY | 2024-04-26 07:46 | XMS_ITS | Encounter Summary ---
Author Organization [facility] Address [address] [place] [address] Phone Care Team Providers Care Blocker And Sewer Name Role Phone Justen Gale MD Primary Care Provider [phone] Reason for Visit * Reason Onset Date Comments Pain 12/22/2021 Encounter Details Date Type Department Care Team (Late st Contact Info) Description 12/22/2021 Nurse Triage [facility] [address] [place] [address] Justen Gale MD #[address] [address] Pain Social History Tobacco Use Types Packs/Day [...] helping that much. LMP / / : VARNISH THINNER RECOMMENDATION: See care advice and disposition for [...] st Contact Info) Description 05/17/2024 2:45 PM PLEATER HAND Office Visit [facility] - Endocrinology - [place] #2 [place] [address] Annel Rod MD #2 [facility] [address] [place] [address] documented as of this encounter Visit Diagnoses Not on filedocumented in this encounter Additional Health Concerns Assessment Noted Time PHQ-9 Depression Total Score: 0 07/21/19 21 3:00 PM CDT documented as of this encounter Care Teams Blocker And Sewer Relationship Specialty Start Date End Date Justen Gale MD #2 [facility] [address] [place] [address] PCP - General Family Medicine 10/17/17 documented as of this encounter
--- OUTSIDE RECORDS SUMMARY | 2024-04-26 07:46 | XMS_ITS | Encounter Summary ---
Author Organization [facility] Address [address] [place] [address] Phone Care Team Providers Care Sample Tester Name Role Phone Justen Gale MD Primary Care Provider [phone] Reason for Visit * Reason Comments Nausea Urinary Tract Infection Possible Uti Encounter Details Date Type Department Care Team (Late st Contact Info) Description 01/03/2022 4:00 PM CDT Office Visit [facility] [place] #2 [place] [address] Dannielle Berg, [facility] #2 [place] [address] UTI symptoms (Primary Dx); Nausea and vomiting, [...] as needed 05/13/21 Tyler Smith MD nystatin [id number] UNIT/GM Powder APPLY TO THE AFFECTED AREA [...] mouth daily. 11/09/21 Yes Pili Elkins APRN, BULL RIVETER rivaroxaban (XARELTO) 20 MG Tablet Take 20 [...] st Contact Info) Description 05/17/2024 2:45 PM COOK SPECIALTY Office Visit [facility] - [place] #[address] [place] [address] Annel Rod MD #[address] [address] documented as of this encounter Procedures Procedure Name Priority Date/Time Associated Diagnosis Comments URINALYSIS REFLEX IF INDICATED BY ABNORMAL RESULTS Routine 01/04/2022 6:47 AM CDT UTI symptoms POCT UA AUTOMATED W/O MICRO Routine 01/03/2022 4:14 PM CDT UTI symptoms documented in this encounter Results * LIPASE (01/04/2022 11:23 AM CDT) LIPASE 20.6 13 - 60 U/L 01/04/2022 12:27 PM CDT [facility] Blood Venipuncture / Unknown 01/04/2022 11:23 AM CDT 01/04/2022 11:56 AM CDT us Maritzaholden Berg PAC CHEMISTRY ORDERABLES Fin al Result Performing Organization Address City/[facility]/ZIP Co de Phone Number [facility] #1 [place] [address] * AMYLASE (01/04/2022 11:23 AM CDT) AMYLASE 42 28 - 100 U/L 01/04/2022 12:27 PM CDT [facility] Blood Venipuncture / Unknown 01/04/2022 11:23 AM CDT 01/04/2022 11:56 AM CDT us Maritza Fritcher PAC CHEMISTRY ORDERABLES Fin al Result [facility] #1 [place] [address] * (ABNORMAL) CMP (COMPREHENSIVE METABOLIC PANEL) (01/04/2022 11:23 AM CDT) SODIUM 136 136 - 144 mmol/L 01/04/2022 12:27 PM CDT [facility] POTASSIUM 4.0 3.5 - 5.1 mmol/L 01/04/2022 12:27 PM CDT [facility] CHLORIDE 100 100 - 110 mmol/L 01/04/2022 12:27 PM CDT [facility] CO2, VENOUS 28 22 - 32 mmol/L 01/04/2022 12:27 PM CDT [facility] ANION GAP 12.0 8.0 - 20.0 mmol/L 01/04/2022 12:27 PM CDT [facility] GLUCOSE 265(H) 70 - 99 mg/dL 01/04/2022 12:27 PM CDT [facility] BUN 12 8 - 23 mg/dL 01/04/2022 12:27 PM T [facility] CREATININE, BLOOD 0.62 0.60 - 1.10 mg/dL 01/04/2022 12:27 PM T [facility] BUN/CREATININE RATIO 19 12 - 20 ratio 01/04/2022 12:27 PM T [facility] TOTAL PROTEIN 8.2 6.0 - 8.3 g/dL 01/04/2022 12:27 PM T [facility] ALBUMIN 3.8 3.5 - 5.2 g/dL 01/04/2022 12:27 PM T [facility] Comment: The colormetric methods used for the determination of Albumin may lead to falsely elevated test results in patients suffering from renal failure or insufficiency due to interference with other proteins. A/G RATIO 0.9(L) 1.0 - 2.0 01/04/2022 12:27 PM CDT [facility] CALCIUM 10.1 8.9 - 10.3 mg/dL 01/04/2022 12:27 PM CDT [facility] T BILI 0.5 <=1.2 mg/dL 01/04/2022 12:27 PM CDT [facility] SGOT (AST) 21 <=32 U/L 01/04/2022 12:27 PM CDT [facility] SGPT (ALT) 16 <=41 U/L 01/04/2022 12:27 PM CDT [facility] ALKALINE PHOSPHATASE 98 35 - 105 U/L 01/04/2022 12:27 PM CDT [facility] IS THE PATIENT REQUIRED TO BE FASTING? No 01/04/2022 12:27 PM CDT [facility] GFR, ESTIMATED >60 >=60 01/04/2022 12:27 PM CDT [facility] Comment: Creatinine Clearance is the preferred criteria for selecting drug dose adjustments in renally impaired patients. ??The GFR is provided as additional pertinent clinical information. GFR is reported in mL/min/1.73 sq m. Calculation based on the Chronic Kidney Disease Epidemiology Collaboration (CKD- EPI) equation refit without adjustment for race. GFR, EST. >60 >=60 022 12:27 PM CDT [facility] GFR, EST. NONAFRICAN >60 >=60 01/04/2022 12:27 PM CDT [facility] Blood Venipuncture / Unknown 01/04/2022 11:23 AM CDT 01/04/2022 11:56 AM CDT us Dannielle Berg PAC CHEMISTRY ORDERABLES Fin al Result [facility] #1 [place] [address] * (ABNORMAL) URINALYSIS REFLEX IF INDICATED BY ABNORMAL RESULTS (01/04/2022 6:47 AM CDT) SPECIFIC GRAVITY 1.025 1.003 - 1.030 01/04/2022 12:37 PM CDT [facility] URINE PH 5.0 5.0 - 9.0 01/04/2022 12:37 PM CDT [facility] WBC ESTERASE 100 /uL(A) Negative 01/04/2022 12:37 PM CDT [facility] NITRITE Negative Negative 01/04/2022 12:37 PM CDT [facility] PROTEIN, RANDOM URINE 30 mg/dL(A) Negative 01/04/2022 12:37 PM CDT [facility] URINE GLUCOSE, QUAL 100 mg/dL(A) Negative 01/04/2022 12:37 PM CDT [facility] URINE KETONES 5 mg/dL(A) Negative 01/04/2022 12:37 PM CDT [facility] UROBILINOGEN Normal Normal mg/dL 01/04/2022 12:37 PM CDT [facility] URINE BLOOD 50 /uL(A) Negative imnor/ul 01/04/2022 12:37 PM CDT [facility] URINALYSIS COLOR Yellow 01/04/2022 12:37 PM CDT [facility] URINALYSIS CLARITY Slightly Cloudy 01/04/2022 12:37 PM CDT [facility] WBC (Urine) 0-5 Negative, 0-5 /hpf 01/04/2022 12:37 PM CDT [facility] URINE RBC'S 0-2 Negative, 0-2 /hpf 01/04/2022 12:37 PM CDT [facility] EPITHELIAL CELLS Occasional /lpf 01/04/2022 12:37 PM CDT [facility] BACTERIA, URINE Few(A) Negative /hpf 01/04/2022 12:37 PM CDT [facility] CRYSTALS Amorphous urates 01/04/2022 12:37 PM CDT [facility] Urine URINE SPECIMEN COLLECTION, CLEAN CATCH / Unknown Non-Phlebotomy Collection / Unknown 01/04/2022 6:47 AM CDT 01/04/2022 6:47 AM CDT us Dannielle Berg PAC URINE ORDERABLES Final R esult [facility] #[address] [place] [address] * (ABNORMAL) POCT UA AUTOMATED W/O MICRO [...] as of this encounter Care Teams Sample Tester Relationship Specialty Start Date End Date Justen Gale MD [address] [address] PCP - General Family Medicine 10/17/17 documented as of this encounter
--- OUTSIDE RECORDS SUMMARY | 2024-04-26 07:46 | XMS_ITS | Encounter Summary ---
Author Organization [facility] Address [address] [place] [address] Phone Care Team Providers Care Supervisor Data Processing Name Role Phone Justen Gale MD Primary Care Provider [phone] Reason for Referral * Consult, Test & Initiate Treatment (Routine) - Closed Specialty Diagnoses / Procedures Referred By Contkristina t Referred To Contact Diagnoses Radiculopathy, lumbosacral region Justen Gale MD #[address] [address] Phone: tel: fax: Referral ID Status Reason Start Date Expiration Date Visits Re quested Visits Authorized [id number] Closed 12/21/2021 12 12 Scheduling Instructions Karly is being referred to Yazmin Smith NPI # [id number] or other specialist in patient's insurance network [...] Liquid, as needed, Disp: , Rfl: nystatin [id number] UNIT/GM Powder, APPLY TO THE AFFECTED AREA [...] with long-term current use of insulin ([facility]) Acute deep vein thrombosis (DVT) of proximal [...] Contact Info) Description 12/21/2021 Telephone [facility] [place] #2 [place] [address] Justen Gale MD #[address] [address] Referral Social History Tobacco Use Types Packs/Day [...] (Late Contact Info) Description 05/17/2024 2:45 PM INSPECTOR FIREARMS Office Visit [facility] - Endocrinology - [place] [address] [place] [address] Annel Rod MD #[address] [facility] [address] [place] [address] Scheduled Referrals Name Type Priority Associated Diagnoses [...] as of this encounter Care Teams Supervisor Data Processing Relationship Specialty Start Date End Date Justen Gale MD #[address] [facility] [address] [place] [address] PCP - General Family Medicine 10/17/17 documented as of this encounter
--- OUTSIDE RECORDS SUMMARY | 2024-04-26 07:46 | XMS_ITS | Encounter Summary ---
Author Organization [facility] Address [address] [facility] [place] [address] Phone Care Team Providers Care Soft Mud Molder Name Role Phone Justen Gale MD Primary Care Provider [phone] Reason for Visit * Reason Onset Date Comments Urinary Frequency 01/03/2022 Encounter Details Date Type Department Care Team (Late st Contact Info) Description 01/03/2022 Nurse Triage [facility] [address] [place] [address] Justen Gale MD #[address] [address] Urinary Frequency Social History Tobacco Use Types [...] Dept Phone 01/03/2022 4:00 PM Dannielle Berg [facility] - Family Medicine [facility] [phone] 01/04/2022 9:45 AM [facility] [phone] Reason for Disposition ??? Urinating more frequently than usual (i.e., frequency) Protocols used: URINARY [id number] documented in this encounter Plan of Treatment Upcoming Encounters Date Type Department Care Team (Late st Contact Info) Description 05/17/2024 2:45 PM PAPER TWISTER Office Visit [facility] - [facility] #[address] [place] [address] Annel Rod MD #[address] [address] documented as of this encounter Visit Diagnoses Not on filedocumented in this encounter Additional Health Concerns Assessment Noted Time PHQ-9 Depression Total Score: 0 07/21/19 21 3:00 PM CDT documented as of this encounter Care Teams Soft Mud Molder Relationship Specialty Start Date End Date Justen Gale MD #2 [place] [address] PCP - General Family Medicine 10/17/17 documented as of this encounter
--- OUTSIDE RECORDS SUMMARY | 2024-04-26 07:46 | XMS_ITS | Encounter Summary ---
Author Organization [facility] Address [address] [facility] [place] [address] Phone Care Team Providers Care Algebra Teacher Name Role Phone Justen Gale MD Primary Care Provider [phone] Reason for Visit * Reason Onset Date Comments Incisional Pain 11/22/2021 Encounter Details Date Type Department Care Team (Late st Contact Info) Description 11/22/2021 Nurse Triage [facility] [address] [place] [address] Justen Gale MD #[address] [address] Incisional Pain Social History Tobacco Use Types [...] incision Protocols used: POST-OP INCISION SYMPTOMS AND [id number] documented in this encounter Plan of Treatment Upcoming Encounters Date Type Department Care Team (Late st Contact Info) Description 05/17/2024 2:45 PM REAL ESTATE INSTRUCTOR Office Visit [facility] - [place] [address] [place] [address] Annel Rod MD #[address] [address] documented as of this encounter Visit Diagnoses Not on filedocumented in this encounter Additional Health Concerns Assessment Noted Time PHQ-9 Depression Total Score: 0 07/21/19 21 3:00 PM CDT documented as of this encounter Care Teams Algebra Teacher Relationship Specialty Start Date End Date Justen Gale MD #[address] [address] PCP - General Family Medicine 10/17/17 documented as of this encounter
--- OUTSIDE RECORDS SUMMARY | 2024-04-26 07:46 | XMS_ITS | Encounter Summary ---
Author Organization [facility] Care Team Providers Care Social Media Analyst Name Role Phone Justen Gale MD Primary Care Provider [phone] Encounter Details Date Type Department Care Team [...] st Contact Info) Description 05/17/2024 2:45 PM STORE MANAGEMENT TRAINEE [facility] Visit [facility] - [place] #2 [place] [address] Annel Rod MD #[address] [address] documented as of this encounter Visit Diagnoses Not on filedocumented in this encounter Additional Health Concerns Assessment Noted Time PHQ-9 Depression Total Score: 0 07/21/19 21 3:00 PM CDT documented as of this encounter Care Teams Social Media Analyst Relationship Specialty Start Date End Date Justen Gale MD #2 [place] [address] PCP - General Family Medicine 10/17/17 documented as of this encounter
--- OUTSIDE RECORDS SUMMARY | 2024-04-26 07:46 | XMS_ITS | Encounter Summary ---
Author Organization [facility] Address [address] [place] [address] Phone Care Team Providers Care Mouse Breeder Name Role Phone Justen Gale MD Primary Care Provider [phone] Reason for Visit * Reason Comments Medication Refill Encounter Details Date Type Department Care Team (Late st Contact Info) Description 12/06/2021 Refill [facility] - Endocrinology - [place] #2 [place] [address] Annel Rod MD #[address] [address] Medication Refill Social History Tobacco [...] Contact Info) Description 05/17/2024 2:45 PM ENTRY ANALYST Office Visit [facility] - Endocrinology - [place] #2 [place] [address] Annel Rod MD #2 [place] [place] [address] documented as of this encounter Visit Diagnoses Not on filedocumented in this encounter Additional Health Concerns Assessment Noted Time PHQ-9 Depression Total Score: 0 07/21/19 21 3:00 PM CDT documented as of this encounter Care Teams Mouse Breeder Relationship Specialty Start Date End Date Justen Gale MD #2 [address] [place] [address] PCP - General Family Medicine 10/17/17 documented as of this encounter
--- OUTSIDE RECORDS SUMMARY | 2024-04-26 07:46 | XMS_ITS | Encounter Summary ---
Author Organization [facility] Address [address] [place] [address] Phone Care Team Providers Care Insurance Coordinator Name Role Phone Justen Gale MD Primary Care Provider [phone] Reason for Visit * Reason Comments Medication Refill Encounter Details Date Type Department Care Team (Late st Contact Info) Description 12/06/2021 Refill [facility] - Family Medicine [facility] #2 [place] [address] Justen Gale MD #[address] [address] Medication Refill Social History Tobacco Use Types [...] 11/09/21 Office Visit Pili Elkins APRN, NETTA [facility] 10/08/21 Office Visit Angelito Alegria APRN, CNP [facility] 08/30/21 Office Visit Justen Gale MD [facility] Showing recent visits within past 365 days and meeting all other requirements Today's Visits Date Type Provider Dept 12/07/21 Appointment Pili Elkins APRN, NETTA [facility] Showing today's visits and meeting all other requirements Future Appointments No visits were found meeting these conditions. Showing future appointments within next 90 days and meeting all other requirements documented in this encounter Plan of Treatment Upcoming Encounters Date Type Department Care Team (Late st Contact Info) Description 05/17/2024 2:45 PM FRONT END MANAGER Office Visit [facility] - Endocrinology - [place] #2 [place] [address] Annel Rod MD #[address] [address] documented as of this encounter Visit Diagnoses Not on filedocumented in this encounter Additional Health Concerns Assessment Noted Time PHQ-9 Depression Total Score: 0 07/21/19 21 3:00 PM CDT documented as of this encounter Care Teams Insurance Coordinator Relationship Specialty Start Date End Date Justen Gale MD #[address] [address] PCP - General Family Medicine 10/17/17 documented as of this encounter
--- OUTSIDE RECORDS SUMMARY | 2024-04-26 07:46 | XMS_ITS | Encounter Summary ---
Author Organization [facility] Address [address] [place] [address] Phone Care Team Providers Care Stake Driver Name Role Phone Justen Gale MD Primary Care Provider [phone] Reason for Referral * Consult, Test & Initiate Treatment (Routine) - Closed Specialty Diagnoses / Procedures Referred By Contac t Referred To Contact Diagnoses Radiculopathy, lumbosacral region Justen Gale MD #[address] [address] Phone: tel: fax: Taylor Smith MD Phone: tel: fax: Referral ID Status Reason Start Date Expiration Date Visits Re quested Visits Authorized [id number] Closed 12/13/2021 1 1 Scheduling Instructions Karly [...] as needed, Disp: , Rfl: nystatin (MYCOSTATIN) [id number] UNIT/ML Suspension, Take 5 mL by mouth 4 times daily for 10 days. Apply to inside of each cheek., Disp: 200 mL, Rfl: 0 nystatin [id number] UNIT/GM Powder, APPLY TO THE AFFECTED AREA [...] Description 12/13/2021 Telephone [facility] - [facility] #2 [place] [address] Justen Gale MD #[address] [address] Referral Social History Tobacco Use Types Packs/Day [...] st Contact Info) Description 05/17/2024 2:45 PM HOURLY SIGN LANGUAGE INTERPRETER Office Visit [facility] - Endocrinology - [place] #2 [place] [address] Annel Rod MD #2 [facility] [address] [place] [address] Scheduled Referrals Name Type Priority Associated Diagnoses [...] documented as of this encounter Care Teams Stake Driver Relationship Specialty Start Date End Date Justen Gale MD #2 [facility] [address] [place] [address] PCP - General Family Medicine 10/17/17 documented as of this encounter
--- OUTSIDE RECORDS SUMMARY | 2024-04-26 07:47 | XMS_ITS | Encounter Summary ---
Author Organization [facility] Address [address] [place] [address] Phone Care Team Providers Care Rehabilitation Program Coordinator Name Role Phone Justen Gale MD Primary Care Provider [phone] Reason for Visit * Reason Onset Date Comments Sore Throat 10/29/2021 Mouth Lesions 10/29/2021 Urinary Frequency 10/29/2021 Fever 10/29/2021 Encounter Details Date Type Department Care Team (Late st Contact Info) Description 10/29/2021 Nurse Triage [facility] [address] [place] [address] Justen Gale MD #[address] [address] Sore Throat; Mouth Lesions; Urinary Frequency; Fever [...] prompt care. States she will go to [facility] urgent care. Has hospital follow up appointment scheduled for Monday, advised to keep appointment. All Patient Appointments Provider Department Dept Phone 11/01/2021 8:30 AM Pili Elkins [facility] - Family Medicine - [place] [phone] 11/29/2021 3:15 PM Annel Rod [facility] - Endocrinology - [place] [phone] 12/01/2021 1:45 PM Justen Gale [facility] Medical [facility] - Family Medicine - [place] [phone] First positive answer recorded, all responses to [...] st Contact Info) Description 05/17/2024 2:45 PM TRAY DRIER Office Visit [facility] - Endocrinology - [place] #2 [place] [address] Annel Rod MD #2 [facility] [address] [place] [address] documented as of this encounter Visit Diagnoses Not on filedocumented in this encounter Additional Health Concerns Assessment Noted Time PHQ-9 Depression Total Score: 0 07/21/19 21 3:00 PM CDT documented as of this encounter Care Teams Rehabilitation Program Coordinator Relationship Specialty Start Date End Date Justen Gale MD #2 [facility] [address] [place] [address] PCP - General Family Medicine 10/17/17 documented as of this encounter
--- OUTSIDE RECORDS SUMMARY | 2024-04-26 07:47 | XMS_ITS | Encounter Summary ---
Author Organization [facility] Address [address] [place] [address] Phone Care Team Providers Care Ribbon Blocker Name Role Phone Justen Gale MD Primary Care Provider [phone] Reason for Visit * Reason Onset Date Comments Appointment 11/01/2021 Encounter Details Date Type Department Care Team (Late st Contact Info) Description 11/01/2021 Telephone [facility] [address] [place] [address] Justen Gale MD #[address] [address] Appointment Social History Tobacco Use Types Packs/Day [...] Contact Info) Description 05/17/2024 2:45 PM HAT BINDER Office Visit [facility] - Endocrinology [facility] #2 [place] [address] Annel Rod MD #2 [facility] [address] [place] [address] documented as of this encounter Visit Diagnoses Not on filedocumented in this encounter Additional Health Concerns Assessment Noted Time PHQ-9 Depression Total Score: 0 07/21/19 21 3:00 PM CDT documented as of this encounter Care Teams Ribbon Blocker Relationship Specialty Start Date End Date Justen Gale MD #2 [facility] [address] [place] [address] PCP - General Family Medicine 10/17/17 documented as of this encounter
--- OUTSIDE RECORDS SUMMARY | 2024-04-26 07:47 | XMS_ITS | Encounter Summary ---
Author Organization [email or web address] Care Team Providers Care Monitor Worker Name Role Phone Justen Gale MD Primary Care Provider [phone] Encounter Details Date Type Department Care Team [...] Contact Info) Description 05/17/2024 2:45 PM CORE BLOWER Office Visit [facility] - Endocrinology - [place] #2 [place] [address] Annel Rod MD #[address] [address] [address] documented as of this encounter Visit Diagnoses Not on filedocumented in this encounter Additional Health Concerns Assessment Noted Time PHQ-9 Depression Total Score: 0 07/21/19 21 3:00 PM CDT documented as of this encounter Care Teams Monitor Worker Relationship Specialty Start Date End Date Justen Gale MD #2 [place] [address] PCP - General Family Medicine 10/17/17 documented as of this encounter
--- OUTSIDE RECORDS SUMMARY | 2024-04-26 07:47 | XMS_ITS | Encounter Summary ---
Author Organization [facility] Address [address] [place] [address] Phone Care Team Providers Care Junior High School Principal Name Role Phone Justen Gale MD Primary Care Provider [phone] Reason for Visit * Reason Onset Date Comments Allergic Reaction 10/12/2021 Encounter Details Date Type Department Care Team (Late st Contact Info) Description 10/12/2021 Nurse Triage [facility] [address] [place] [address] Justen Gale MD #[address] [address] Allergic Reaction Social History Tobacco Use Types [...] Dept Phone 10/12/2021 1:00 PM Justen Gale [facility] - Family Medicine [facility] [phone] First positive answer recorded, all responses to prior questions were negative. If symptoms increase, change or if new symptoms develop, call your HCP or call back. Recommendations were based on caller information and is not a diagnosis. Verified and reviewed all triage information with caller. Reason for Disposition ??? Hives or itching Protocols used: RASH - WIDESPREAD ON DRUGS - DRUG [id number]-WQ documented in this encounter Plan of Treatment Upcoming Encounters Date Type Department Care Team (Late st Contact Info) Description 05/17/2024 2:45 PM DOPE DRY HOUSE OPERATOR Office Visit [facility] Medical [facility] - Endocrinology - [place] [address] [place] [address] Annel Rod MD #[address] [address] documented as of this encounter Visit Diagnoses Not on filedocumented in this encounter Additional Health Concerns Assessment Noted Time PHQ-9 Depression Total Score: 0 07/21/19 21 3:00 PM CDT documented as of this encounter Care Teams Junior High School Principal Relationship Specialty Start Date End Date Justen Gale MD #2 [place] [id number] PCP - General Family Medicine 10/17/17 documented as of this encounter
--- OUTSIDE RECORDS SUMMARY | 2024-04-26 07:47 | XMS_ITS | Encounter Summary ---
Author Organization [facility] Address [address] [place] [address] Phone Care Team Providers Care Store Lead Name Role Phone Justen Gale MD Primary Care Provider [phone] Reason for Visit * Reason Onset Date Comments Fatigue 10/20/2021 Sore Throat 10/20/2021 Aphagia 10/20/2021 tongue swelling 10/20/2021 Encounter Details Date Type Department Care Team (Late st Contact Info) Description 10/20/2021 Nurse Triage [facility] [address] [place] [address] Justen Gale MD #[address] [address] Fatigue; Sore Throat; Aphagia; tongue swelling Social [...] from poor fluid intake) Protocols used: SWALLOWING [id number]-WN, WEAKNESS (GENERALIZED) AND [id number]-E-XO documented in this encounter Plan of Treatment Upcoming Encounters Date Type Department Care Team (Late st Contact Info) Description 05/17/2024 2:45 PM HISTORIC CLOTHING AND COSTUME MAKER Office Visit [facility] - Endocrinology - [place] #[address] [place] [address] Annel Rod MD #2 [facility] [address] [place] [address] documented as of this encounter Visit Diagnoses Not on filedocumented in this encounter Additional Health Concerns Assessment Noted Time PHQ-9 Depression Total Score: 0 07/21/19 21 3:00 PM CDT documented as of this encounter Care Teams Store Lead Relationship Specialty Start Date End Date Justen Gale MD #2 [place] [facility] [address] [place] [address] PCP - General Family Medicine 10/17/17 documented as of this encounter
--- OUTSIDE RECORDS SUMMARY | 2024-04-26 07:47 | XMS_ITS | Encounter Summary ---
Author Organization [facility] Address [address] [place] [address] Phone Care Team Providers Care Medical Secretary Name Role Phone Justen Gale MD Primary Care Provider [phone] Reason for Visit * Reason Onset Date Comments Results 10/11/2021 Encounter Details Date Type Department Care Team (Late st Contact Info) Description 10/11/2021 Telephone [facility] - Family Medicine [facility] #2 [place] [address] Angelito Alegria, HEMODIALYSIS PATIENT CARE SPECIALIST, ELECTROLOGIST #[address] [address] Results Social History Tobacco Use [...] Contact Info) Description 05/17/2024 2:45 PM FIELD ADMINISTRATIVE ASSISTANT Office Visit [facility] - Endocrinology - [place] #2 [place] [address] Annel Rod MD #[address] [facility] [address] [place] [address] documented as of this encounter Visit Diagnoses Not on filedocumented in this encounter Additional Health Concerns Assessment Noted Time PHQ-9 Depression Total Score: 0 07/21/19 21 3:00 PM CDT documented as of this encounter Care Teams Medical Secretary Relationship Specialty Start Date End Date Justen Gale MD #[address] [facility] [address] [place] [address] PCP - General Family Medicine 10/17/17 documented as of this encounter
--- OUTSIDE RECORDS SUMMARY | 2024-04-26 07:47 | XMS_ITS | Encounter Summary ---
Author Organization [facility] Address [address] [place] [address] Phone Care Team Providers Care On Site Manager Name Role Phone Justen Gale MD Primary Care Provider [phone] Reason for Referral * Consult, Test & Initiate Treatment (Routine) - Canceled Specialty Diagnoses / Procedures Referred By Contac t Referred To Contact Urology Diagnoses Frequent UTI Justen Gale MD #[address] [address] Phone: tel: fax: [facility] #2 [place] [address] Phone: tel: fax: Referral ID Status Reason Start Date Expiration Date V isits Requested Visits Authorized [id number] Canceled 11/04/2021 1 11 Scheduling Instructions Karly is being referred for frequent uti's. Please contact patient for scheduling questions or concerns. Reason for Visit * Reason Onset Date Comments Referral 11/03/2021 Encounter Details Date Type Department Care Team (Late st Contact Info) Description 11/03/2021 Telephone [facility] Central Call Center [address] [place] [address] Justen Gale MD #2 [facility] [address] [place] [address] Referral Social History Tobacco Use Types Packs/Day [...] Calls stating she is currently hospitalized at [facility] for UTI and sepsis. Was advisedby [...] st Contact Info) Description 05/17/2024 2:45 PM CLOTH PRINTER Office Visit [facility] - Endocrinology - [place] #2 [place] [address] Annel Rod MD #2 [facility] [address] [place] [address] Scheduled Referrals Name Type Priority Associated Diagnoses [...] of this encounter Care Teams On Site Manager Relationship Specialty Start Date End Date Justen Gale MD #2 [place] [id number] PCP - General Family Medicine 10/17/17 documented as of this encounter
--- OUTSIDE RECORDS SUMMARY | 2024-04-26 07:47 | XMS_ITS | Encounter Summary ---
Author Organization [facility] Address [address] [place] [address] Phone Care Team Providers Care Global Consumer Sector Vice President Name Role Phone Justen Gale MD Primary Care Provider [phone] Reason for Referral * Consult, Test & Initiate Treatment (Less Than 4 Weeks) - Canceled Specialty Diagnoses / Procedures Referred By Contac t Referred To Contact Urology Diagnoses Frequent UTI Pili Elkins APRN, CNP #[address] [address] Phone: tel: fax: [facility] #2 [place] [address] Phone: tel: fax: Referral ID Status Reason Start Date Expiration Date V isits Requested Visits Authorized [id number] Canceled 11/09/2021 1 1 Scheduling Instructions Karly [...] Office Visit [facility] - Family [facility] #[address] [place] [address] Pili Elkins APRN, STILL PUMP OPERATOR #[address] [address] Sepsis due to Escherichia coli [...] APRN, NETTA - 11/09/2021 5:30 PM CDT [facility] #2 [facility] [address] Dept: [phone] Dept Loc: [phone] Loc Patient: Karly Marques : 1955 Sex: [...] an allergic reaction. She was seen at [facility] and was prescribed a different medication. She reports that the next week the UTI have worsened and she had to take more the same antibiotics. Then on October 26 she became very ill and went to [facility] and was found have another to UTI. [...] encounter Fungal rash of trunk - nystatin [id number] UNIT/GM Powder; Apply 3 times daily for [...] Contact Info) Description 05/17/2024 2:45 PM OPERATIONS MANAGEMENT PROFESSIONALS Office Visit [facility] - Endocrinology - [place] #2 [place] [address] Annel Rod MD #[address] [address] Scheduled Referrals Name Type Priority Associated Diagnoses [...] documented as of this encounter Care Teams Global Consumer Sector Vice President Relationship Specialty Start Date End Date Justen Gale MD #[address] [address] PCP - General Family Medicine 10/17/17 documented as of this encounter
--- OUTSIDE RECORDS SUMMARY | 2024-04-26 07:47 | XMS_ITS | Encounter Summary ---
Author Organization [facility] Address [address] [place] [address] [place] [address] Phone Care Team Providers Care Ion Exchange Operator Name Role Phone Justen Gale MD Primary Care Provider [phone] Reason for Visit * Reason Onset Date Comments Skin Problem 10/12/2021 Allergic Reaction 10/12/2021 Encounter Details Date Type Department Care Team (Late st Contact Info) Description 10/12/2021 [facility] [address] [place] [address] Justen Gale MD #[address] [address] Skin Problem; Allergic Reaction Social [...] and call patient back Karly Marques (Self) [phone] Patient verbalizes understanding and agreeable to plan [...] codeine/morphine/other opiates, aspirin) Protocols used: ITCHING - [id number]-NW documented in this encounter Plan of Treatment Upcoming Encounters Date Type Department Care Team (Late st Contact Info) Description 05/17/2024 2:45 PM PALEOLOGIST Office Visit [facility] - Endocrinology [facility] #2 [place] [address] Annel Rod MD #2 [facility] [address] [place] [address] documented as of this encounter Visit Diagnoses Not on filedocumented in this encounter Additional Health Concerns Assessment Noted Time PHQ-9 Depression Total Score: 0 07/21/19 21 3:00 PM CDT documented as of this encounter Care Teams Ion Exchange Operator Relationship Specialty Start Date End Date Justen Gale MD #2 [facility] [address] [place] [address] PCP - General Family Medicine 10/17/17 documented as of this encounter
--- OUTSIDE RECORDS SUMMARY | 2024-04-26 07:47 | XMS_ITS | Encounter Summary ---
Author Organization [facility] Address [address] [place] [address] Phone Care Team Providers Care Quality Nurse Name Role Phone Justen Gale MD Primary Care Provider [phone] Reason for Visit * Reason Onset Date Comments Follow-up 10/12/2021 Medication Management 10/12/2021 Encounter Details Date Type Department Care Team (Late st Contact Info) Description 10/12/2021 Telephone [facility] - Family Medicine [facility] #2 [place] [address] Justen Gale MD #[address] [address] Follow-up; Medication Management Social History Tobacco Use [...] st Contact Info) Description 05/17/2024 2:45 PM STORAGE CONSULTANT Office Visit [facility] Medical Group - Endocrinology [facility] #2 [place] [address] Annel Rod MD #2 [facility] [address] [place] [address] documented as of this encounter Visit Diagnoses Not on filedocumented in this encounter Additional Health Concerns Assessment Noted Time PHQ-9 Depression Total Score: 0 07/21/19 3:00 PM CDT documented as of this encounter Care Teams Quality Nurse Relationship Specialty Start Date End Date Justen Gale MD #2 [facility] [address] [place] [address] PCP - General Family Medicine 10/17/17 documented as of this encounter
--- OUTSIDE RECORDS SUMMARY | 2024-04-26 07:47 | XMS_ITS | Encounter Summary ---
Author Organization [facility] Address [address] [place] [address] Phone Care Team Providers Care Warehouse Inventory Clerk Name Role Phone Justen Gale MD Primary Care Provider [phone] Reason for Visit * Reason Onset Date Comments Follow-up 10/26/2021 Encounter Details Date Type Department Care Team (Late st Contact Info) Description 10/26/2021 Telephone [facility] [address] [place] [address] Justen Gale MD #[address] [address] Follow-up Social History Tobacco Use Types Packs/Day [...] and was discharged from the ED at [facility]. Patient normally states she does not usually [...] adifferent ED due to poor service at [facility]. RECOMMENDATION: See care advice and disposition for [...] st Contact Info) Description 05/17/2024 2:45 PM LADIES SUIT OPERATOR Office Visit [facility] - Endocrinology - [place] #2 [place] [address] Annel Rod MD #[address] [address] documented as of this encounter Visit Diagnoses Not on filedocumented in this encounter Additional Health Concerns Assessment Noted Time PHQ-9 Depression Total Score: 0 07/21/19 21 3:00 PM CDT documented as of this encounter Care Teams Warehouse Inventory Clerk Relationship Specialty Start Date End Date Justen Gale MD #2 [place] [id number] PCP - General Family Medicine 10/17/17 documented as of this encounter
--- OUTSIDE RECORDS SUMMARY | 2024-04-26 07:47 | XMS_ITS | Encounter Summary ---
Author Organization [facility] Address [address] [facility] [place] [address] Phone Care Team Providers Care Peripheral Edp Equipment Operator Name Role Phone Justen Gale MD Primary Care Provider [phone] Reason for Visit * Reason Onset Date Comments Nausea 10/12/2021 chills 10/12/2021 Shaking 10/12/2021 Encounter Details Date Type Department Care Team (Late st Contact Info) Description 10/12/2021 Nurse Triage [facility] [address] [place] [address] Justen Gale MD #[address] [address] Nausea; chills; Shaking Social History Tobacco Use [...] weak to the triager Protocols used: URINARY [id number]-S-PK documented in this encounter Plan of Treatment Upcoming Encounters Date Type Department Care Team (Late st Contact Info) Description 05/17/2024 2:45 PM QUICK MIXER OPERATOR Office Visit [facility] - Endocrinology [facility] #2 [place] [address] Annel Rod MD #2 [facility] [address] [place] [address] documented as of this encounter Visit Diagnoses Not on filedocumented in this encounter Additional Health Concerns Assessment Noted Time PHQ-9 Depression Total Score: 0 07/21/19 21 3:00 PM CDT documented as of this encounter Care Teams Peripheral Edp Equipment Operator Relationship Specialty Start Date End Date Justen Gale MD #2 [facility] [address] [place] [address] PCP - General Family Medicine 10/17/17 documented as of this encounter
--- OUTSIDE RECORDS SUMMARY | 2024-04-26 07:47 | XMS_ITS | Encounter Summary ---
Author Organization [facility] Address [address] [place] [address] Phone Care Team Providers Care Brine Tank Tender Name Role Phone Justen Gale MD Primary Care Provider [phone] Reason for Visit * Reason Onset Date Comments Skin Problem 11/06/2021 Encounter Details Date Type Department Care Team (Late st Contact Info) Description 11/06/2021 Nurse Triage [facility] [address] [place] [address] Justen Gale MD #[address] [address] Skin Problem Social History Tobacco Use Types [...] under larger breasts) Protocols used: ITCHING - [id number]-N-EF, RASH OR REDNESS - DLXLEPFLC-Q-UK Home care advice given and patient verbalized understanding Hospital follow up appt made for 11/09/21 and confirmed with patient Provider notification documented in this encounter Plan of Treatment Upcoming Encounters Date Type Department Care Team (Late st Contact Info) Description 05/17/2024 2:45 PM EDUCATIONAL AID Office Visit [facility] - Endocrinology - [place] [address] [place] [phone] Annel Rod MD #[address] [phone] documented as of this encounter Visit Diagnoses Not on filedocumented in this encounter Additional Health Concerns Assessment Noted Time PHQ-9 Depression Total Score: 0 07/21/19 21 3:00 PM CDT documented as of this encounter Care Teams Brine Tank Tender Relationship Specialty Start Date End Date Justen Gale MD #2 [place] [id number] PCP - General Family Medicine 10/17/17 documented as of this encounter
--- OUTSIDE RECORDS SUMMARY | 2024-04-26 07:48 | XMS_ITS | Encounter Summary ---
Author Organization [facility] Telepathy Care Team Providers Care Upholsterer Helper Name Role Phone Justen Gale MD Primary Care Provider [phone] Encounter Details Date Type Department Care Team [...] st Contact Info) Description 05/17/2024 2:45 PM BROKER ASSISTANT Office Visit [facility] - Endocrinology - [employer] #2 [place] [address] Annel Rod MD #[address] [address] documented as of this encounter Visit Diagnoses Not on filedocumented in this encounter Additional Health Concerns Assessment Noted Time PHQ-9 Depression Total Score: 0 07/21/19 21 3:00 PM CDT documented as of this encounter Care Teams Upholsterer Helper Relationship Specialty Start Date End Date Justen Gale MD #2 [place] [address] PCP - General Family Medicine 10/17/17 documented as of this encounter
--- OUTSIDE RECORDS SUMMARY | 2024-04-26 07:48 | XMS_ITS | Encounter Summary ---
Author Organization [facility] Address [address] [facility] [place] [address] Phone Care Team Providers Care Nurse Assistant Name Role Phone Justen Gale MD Primary Care Provider [phone] Reason for Visit * Reason Onset Date Comments Leg Pain 09/03/2021 Encounter Details Date Type Department Care Team (Late st Contact Info) Description 09/03/2021 Nurse Triage [facility] [address] [place] [address] Justen Gale MD #[address] [address] Leg Pain Social History Tobacco Use Types [...] st Contact Info) Description 05/17/2024 2:45 PM CLOTHES WRINGER Office Visit [facility] - Endocrinology - [place] #[address] [place] [address] Annel Rod MD #[address] [phone] documented as of this encounter Visit Diagnoses Not on filedocumented in this encounter Additional Health Concerns Assessment Noted Time PHQ-9 Depression Total Score: 0 07/21/19 21 3:00 PM CDT documented as of this encounter Care Teams Nurse Assistant Relationship Specialty Start Date End Date Justen Gale MD #2 [place] [phone] PCP - General Family Medicine 10/17/17 documented as of this encounter
--- OUTSIDE RECORDS SUMMARY | 2024-04-26 07:48 | XMS_ITS | Encounter Summary ---
Author Organization [facility] Address [address] [place] [address] Phone Care Team Providers Care Production Assembler Name Role Phone Justen Gale MD Primary Care Provider [phone] Reason for Visit * Reason Comments Medication Refill Encounter Details Date Type Department Care Team (Late st Contact Info) Description 03/15/2021 Refill [facility] - Family Medicine [facility] #2 [place] [address] Justen Gale MD #[address] [address] Medication Refill Social History Tobacco Use Types [...] COVID-19? No / Unsure 03/02/2021 5:05 PM MALT SPECIFICATIONS CONTROL ASSISTANT documented as of this encounter Miscellaneous Notes * Telephone Encounter - Justen Gale MD - 03/16/2021 9:03 AM CST approved SPECIFICATIONS CONTROL ASSISTANT * Telephone Encounter - Marlys Anderson RN [...] no refill protocol information for this order SPECIFICATIONS CONTROL ASSISTANT documented in this encounter Plan of Treatment Upcoming Encounters Date Type Department Care Team (Late st Contact Info) Description 05/17/2024 2:45 PM MALT SPECIFICATIONS CONTROL ASSISTANT Office Visit [facility] - Endocrinology [facility] #2 [place] [address] Annel Rod MD #[address] [facility] [address] [place] [address] documented as of this encounter Visit Diagnoses Not on filedocumented in this encounter Additional Health Concerns Assessment Noted Time PHQ-9 Depression Total Score: 0 07/21/19 21 3:00 PM CDT documented as of this encounter Care Teams Production Assembler Relationship Specialty Start Date End Date Justen Gale MD #[address] [facility] [address] [place] [address] PCP - General Family Medicine 10/17/17 documented as of this encounter
--- OUTSIDE RECORDS SUMMARY | 2024-04-26 07:48 | XMS_ITS | Encounter Summary ---
Author Organization [facility] Address [address] [address] Phone Care Team Providers Care Pe Manager Name Role Phone Justen Gale MD Primary Care Provider [phone] Reason for Visit * Reason Onset Date Comments Labs Only 05/19/2021 Encounter Details Date Type Department Care Team (Late st Contact Info) Description 05/19/2021 Telephone [facility] [address] [place] [address] Justen Gale MD #[address] [address] Labs Only Social History Tobacco Use Types [...] Coronavirus / COVID-19? Yes 05/06/2021 6:58 PM TOUR GUIDE documented as of this encounter Miscellaneous Notes * Telephone Encounter - Stacy Huang RN - 05/19/2021 10:56 AM TOUR GUIDE Called and spoke with Daisy at [facility] to let her know that patient has not been seen here since August. Called and talked with patient about setting up an appointment and she will call back after she hasthis surgery, if they do it. GUIDE * Telephone Encounter - Justen Gale MD - 05/19/2021 10:35 AM CST Please call I have no recent sed rate on her or crp In general her wbc counts have been fine. She needs ov with me to work up abnormal labs. I havent seen her since 09/11 GUIDE * Telephone Encounter - Miracle Luna - 05/19/2021 10:23 AM CST Daisy from Dr. Betty Smith,s office calling Patient is having spinal cord stimulator implant at [facility] [place] Monday05/21/20 Her preop blood work showed WBC slightly elevated as well as CRP and sed rate were also elevated Is it normal for her to have these levels elevated? Dr. Smith typically will not perform surgery on patient's with these levels elevated. Please advise and call Daisy back GUIDE documented in this encounter Plan of Treatment Upcoming Encounters Date Type Department Care Team (Late st Contact Info) Description 05/17/2024 2:45 PM TOUR GUIDE Office Visit [facility] - Endocrinology - [place] #[address] [place] [address] Annel Rod MD #[address] [phone] documented as of this encounter Visit Diagnoses Not on filedocumented in this encounter Additional Health Concerns Assessment Noted Time PHQ-9 Depression Total Score: 0 07/21/19 21 3:00 PM CDT documented as of this encounter Care Teams Pe Manager Relationship Specialty Start Date End Date Justen Gale MD #[address] [address] PCP - General Family Medicine 10/17/17 documented as of this encounter
--- OUTSIDE RECORDS SUMMARY | 2024-04-26 07:48 | XMS_ITS | Encounter Summary ---
Author Organization [facility] Address [address] [place] [address] Phone Care Team Providers Care Mid Level Developer Name Role Phone Justen Gale MD Primary Care Provider [phone] Reason for Referral * Consult, Test & Initiate Treatment (Routine) - Closed Specialty Diagnoses / Procedures Referred By Contac t Referred To Contact Diagnoses Chronic low back pain, unspecified back pain laterality, unspecified whether sciatica present Justen Gale MD #[address] [address] Phone: tel: fax: Referral ID Status Reason Start Date Expiration Date Visits Re quested Visits Authorized [id number] Closed 06/02/2021 24 24 Scheduling Instructions Karly [...] 59.9 in adult (HCC) Thyroid nodule ER LAUNDRY ARTICLES Reason for Visit * Reason Onset Date Comments Referral 06/02/2021 Encounter Details Date Type Department Care Team (Late st Contact Info) Description 06/02/2021 Telephone [facility] - [facility] #2 [place] [address] Justen Gale MD #[address] [address] Referral Social History Tobacco Use Types Packs/Day [...] Coronavirus / COVID-19? Yes 05/06/2021 6:58 PM SORTER LAUNDRY ARTICLES documented as of this encounter Miscellaneous Notes * Telephone Encounter - Stacy Huang RN - 06/02/2021 1:59 PM CST Received fax from Taylor Smith MD office for new referral. Referral Pended for approval ER LAUNDRY ARTICLES documented in this encounter Plan of Treatment Upcoming Encounters Date Type Department Care Team (Late st Contact Info) Description 05/17/2024 2:45 PM SORTER LAUNDRY ARTICLES Office Visit [facility] - Endocrinology [facility] #2 [place] [address] Annel Rod MD #2 [facility] [address] [place] [address] Scheduled Referrals Name Type Priority Associated Diagnoses [...] of this encounter Care Teams Mid Level Developer Relationship Specialty Start Date End Date Justen Gale MD #2 [facility] [address] [place] [address] PCP - General Family Medicine 10/17/17 documented as of this encounter
--- OUTSIDE RECORDS SUMMARY | 2024-04-26 07:48 | XMS_ITS | Encounter Summary ---
Author Organization [facility] [email or web address] Care Team Providers Care Police Captain Precinct Name Role Phone Justen Glae MD Primary Care Provider [phone] Encounter Details Date Type Department Care Team [...] COVID-19? No / Unsure 03/02/2021 5:05 PM GRANULATING BLENDER documented as of this encounter Plan of Treatment Upcoming Encounters Date Type Department Care Team (Late st Contact Info) Description 05/17/2024 2:45 PM GRANULATING BLENDER [facility] Visit [facility] - Endocr[facility]ology - [place] #[address] [place] [address] Annel Rod MD #[address] [address] documented as of this encounter Visit Diagnoses Not on filedocumented in this encounter Additional Health Concerns Assessment Noted Time PHQ-9 Depression Total Score: 0 07/21/19 21 3:00 PM CDT documented as of this encounter Care Teams Police Captain Precinct Relationship Specialty Start Date End Date Justen Gale MD #[address] [address] PCP - General Family Medicine 10/17/17 documented as of this encounter
--- OUTSIDE RECORDS SUMMARY | 2024-04-26 07:48 | XMS_ITS | Encounter Summary ---
Author Organization [facility] Address [address] [place] [address] Phone Care Team Providers Care Orthodontic Band Maker Name Role Phone Justen Gale MD Primary Care Provider [phone] Reason for Visit * Reason Comments Medication Refill Encounter Details Date Type Department Care Team (Late st Contact Info) Description 03/15/2021 Refill [facility] - Endocrinology - [place] #2 [place] [address] Annel Rod MD #[address] [address] Medication Refill Social History Tobacco [...] COVID-19? No / Unsure 03/02/2021 5:05 PM INTERACTIVE PRODUCER documented as of this encounter Miscellaneous Notes * Telephone Encounter - Annel Rod MD - 03/15/2021 1:45 PM CST Rx sent RACTIVE PRODUCER * Telephone Encounter - Jennifer Wang, RN - 03/15/2021 9:48 AM INTERACTIVE PRODUCER Requested Prescriptions Pending Prescriptions Disp Refills ??? Insulin Lispro, 1 Unit Dial, (HumaLOG KwikPen) 100 UNIT/ML Solution Pen- injector [Pharmacy Med Name: HUMALOG 100 U/ML KWIK PEN INJ 3ML] 45 mL 1 Sig: ADMINISTER 22 UNITS UNDER THE SKIN THREE TIMES DAILY BEFORE MEALS. MAX OF 120 UNITS PER DAY Next appt: 04/19/2021 RACTIVE PRODUCER documented in this encounter Plan of Treatment Upcoming Encounters Date Type Department Care Team (Late st Contact Info) Description 05/17/2024 2:45 PM INTERACTIVE PRODUCER Office Visit [facility] - Endocrinology [facility] #2 [place] [address] Annel Rod MD #2 [facility] [address] [place] [address] documented as of this encounter Visit Diagnoses Not on filedocumented in this encounter Additional Health Concerns Assessment Noted Time PHQ-9 Depression Total Score: 0 07/21/19 21 3:00 PM CDT documented as of this encounter Care Teams Orthodontic Band Maker Relationship Specialty Start Date End Date Justen Gale MD #2 [facility] [address] [place] [address] PCP - General Family Medicine 10/17/17 documented as of this encounter
--- OUTSIDE RECORDS SUMMARY | 2024-04-26 07:48 | XMS_ITS | Encounter Summary ---
Author Organization [facility] Address [address] [place] [address] Phone Care Team Providers Care Manager Of Broadcast Content Name Role Phone Justen Gale MD Primary Care Provider [phone] Reason for Visit * Reason Comments Pre-Operative Exam Pre Op Exam Encounter Details Date Type Department Care Team (Late st Contact Info) Description 08/30/2021 2:30 PM CDT Office Visit [facility] - Family [facility] #2 [place] [address] Justen Glae MD #[address] [address] Radiculopathy, lumbosacral region (Primary Dx); Chronic low [...] BY MOUTH EVERY NIGHT 03/15/21 Yes Justen Gael MD There are no discontinued medications. I [...] weeks. Will have it put in in [facility]. Had reaction to lisinopril recently Off that [...] st Contact Info) Description 05/17/2024 2:45 PM TUCK POINTER Office Visit [facility] - Endocrinology - [place] #2 [place] [address] Annel Rod MD #[address] [address] documented as of this encounter Visit Diagnoses [...] of this encounter Care Teams Manager Of Broadcast Content Relationship Specialty Start Date End Date Justen Gale MD #2 [place] [address] PCP - General Family Medicine 10/17/17 documented as of this encounter
--- OUTSIDE RECORDS SUMMARY | 2024-04-26 07:48 | XMS_ITS | Encounter Summary ---
Author Organization [facility] Address [address] [place] [address] Phone Care Team Providers Care Mining Speculator Name Role Phone Justen Gale MD Primary Care Provider Reason for Referral * Consult, Test & Initiate Treatment (Routine) - Canceled Specialty Diagnoses / Procedures Referred By Contac t Referred To Contact Gastroenterology Diagnoses Generalized abdominal pain Nausea Annel Rod MD #[address] [address] Phone: tel: fax: [facility] - Gastroenterology - [place] #2 [place] [address] Phone: tel: fax: Referral ID Status Reason Start Date Expiration Date V isits Requested Visits Authorized [id number] Canceled 07/27/2021 1 1 Scheduling Instructions Karly is being referred for abdominal pain and nausea. Please contact patient for scheduling questions or concerns. * Radiology Services (Routine) - Closed Specialty Diagnoses / Procedures Referred By Contac t Referred To Contact Radiology Diagnoses Thyroid nodule Procedures US THYROID Annel Rod MD #[address] [address] Phone: tel: fax: Referral ID Status Reason Start Date Expiration Date Visits Re quested Visits Authorized [id number] Closed 07/27/2021 1 1 Reason for Visit * Reason Comments Diabetes Mellitus Follow up Encounter Details Date Type Department Care Team (Late st Contact Info) Description 07/27/2021 1:00 PM CDT Office Visit [facility] - Endocr[facility]ology - [place] #2 [place] [address] Annel Rod MD #[address] [phone] Type 2 diabetes mellitus with diabetic polyneuropathy, [...] including pre-visit review of separately obtained history, [id number] interaction performing medically appropriate physical exam, patientcounseling/education, [...] Contact Info) Description 05/17/2024 2:45 PM DIRECTOR SEMICONDUCTOR Office Visit [facility] - Endocrinology - [place] #2 [place] [address] Annel Rod MD #2 [place] [facility] [address] [place] [address] Scheduled Orders Name Type Priority Associated Diagnoses [...] documented as of this encounter Care Teams Mining Speculator Relationship Specialty Start Date End Date Justen Gale MD #2 [address] [facility] [address] [place] [address] PCP - General Family Medicine 10/17/17 documented as of this encounter
--- OUTSIDE RECORDS SUMMARY | 2024-04-26 07:48 | XMS_ITS | Encounter Summary ---
Author Organization [facility] Address [address] [place] [address] Phone Care Team Providers Care Speech And Language Clinician Name Role Phone Justen Gale MD Primary Care Provider [phone] Reason for Visit * Reason Onset Date Comments Tongue Swelling 03/14/2021 Encounter Details Date Type Department Care Team (Late st Contact Info) Description 03/14/2021 Nurse Triage [facility] [address] [place] [address] Justen Gale MD #[address] [address] Tongue Swelling Social History Tobacco Use Types [...] COVID-19? No / Unsure 03/02/2021 5:05 PM MOTORBOAT MECHANIC HELPER documented as of this encounter Miscellaneous Notes * Telephone Encounter - Tamika Collazo RN - 03/14/2021 7:31 AM MOTORBOAT MECHANIC HELPER SITUATION: Tongue swelling x today BACKGROUND: Taking [...] after taking a drug Protocols used: FACE [id number]-S-CV RBOAT MECHANIC HELPER documented in this encounter Plan of Treatment Upcoming Encounters Date Type Department Care Team (Late st Contact Info) Description 05/17/2024 2:45 PM MOTORBOAT MECHANIC HELPER Office Visit [facility] - Endocrinology - [place] #[address] [place] [address] Annel Rod MD #[address] [address] documented as of this encounter Visit Diagnoses Not on filedocumented in this encounter Additional Health Concerns Assessment Noted Time PHQ-9 Depression Total Score: 0 07/21/19 21 3:00 PM CDT documented as of this encounter Care Teams Speech And Language Clinician Relationship Specialty Start Date End Date Justen Gale MD #[address] [address] PCP - General Family Medicine 10/17/17 documented as of this encounter
--- OUTSIDE RECORDS SUMMARY | 2024-04-26 07:48 | XMS_ITS | Encounter Summary ---
Author Organization [facility] Address [address] [facility] [place] [address] Phone Care Team Providers Care Heating And Cooling Technician Name Role Phone Justen Gale MD Primary Care Provider [phone] Reason for Visit * Reason Onset Date Comments Leg Pain 05/06/2021 Shortness of Breath 05/06/2021 Encounter Details Date Type Department Care Team ([facility] st Contact Info) Description 05/06/2021 Nurse Triage [facility] Central Call Center [address] [place] [address] Justen Gale MD #[address] [address] Leg Pain; Shortness of Breath [...] Coronavirus / COVID-19? Yes 05/06/2021 6:58 PM ARMATURE STRAIGHTENER documented as of this encounter Miscellaneous Notes [...] ??? Difficulty breathing Protocols used: LEG PAIN-A-AH TURE STRAIGHTENER documented in this encounter Plan of Treatment Upcoming Encounters Date Type Department Care Team (Late st Contact Info) Description 05/17/2024 2:45 PM ARMATURE STRAIGHTENER [facility] - Endocr[facility]ology - [place] #2 [place] [address] Annel Rod MD #[address] [address] documented as of this encounter Visit Diagnoses Not on filedocumented in this encounter Additional Health Concerns Assessment Noted Time PHQ-9 Depression Total Score: 0 07/21/19 21 3:00 PM CDT documented as of this encounter Care Teams Heating And Cooling Technician Relationship Specialty Start Date End Date Justen Gale MD [facility] [address] [place] [address] PCP - General Family Medicine 10/17/17 documented as of this encounter
--- OUTSIDE RECORDS SUMMARY | 2024-04-26 07:48 | XMS_ITS | Encounter Summary ---
Author Organization [facility] Address [address] [place] [address] Phone Care Team Providers Care Meat Products Demonstrator Name Role Phone Justen Gale MD Primary Care Provider [phone] David Roberts APRN, POWER PLANT ASSISTANT Unavailable [phone] Annel Rod MD Unavailable Reason for Visit * Reason Comments Medication Refill Encounter Details Date Type Department Care Team (Late st Contact Info) Description 03/13/2021 Refill [facility] [address] [place] [address] Justen Gale MD #[address] [address] Medication Refill Social History Tobacco Use Types [...] COVID-19? No / Unsure 03/02/2021 5:05 PM SVP CHIEF MARKETING OFFICER documented as of this encounter Plan of Treatment Upcoming Encounters Date Type Department Care Team (Late st Contact Info) Description 05/17/2024 2:45 PM SVP CHIEF MARKETING OFFICER Office Visit [facility] - Endocrinology [facility] #2 [place] [address] Annel Rod MD #[address] [address] documented as of this encounter Visit Diagnoses Not on filedocumented in this encounter Additional Health Concerns Assessment Noted Time PHQ-9 Depression Total Score: 0 07/21/19 21 3:00 PM CDT documented as of this encounter Care Teams Meat Products Demonstrator Relationship Specialty Start Date End Date Justen Gale MD #[address] [address] PCP - General Family Medicine 10/17/17 David Roberts APRN, POWER PLANT ASSISTANT #2 [place] [address] Nurse Practitioner Advanced Practice Nurse 01/31/22 Annel Rod MD #[address] [address] Consulting Physician Endocrinology 07/01/22 documented as of this encounter
--- OUTSIDE RECORDS SUMMARY | 2024-04-26 07:48 | XMS_ITS | Encounter Summary ---
Author Organization [facility] Address [address] [place] [address] Phone Care Team Providers Care Svp Digital Sales Food & Cooking Name Role Phone Justen Gale MD Primary Care Provider [phone] Reason for Visit * Reason Onset Date Comments Care Management 09/12/2021 Encounter Details Date Type Department Care Team (Late st Contact Info) Description 09/12/2021 Telephone [facility]ology - [place] #2 [place] [address] Annel Rod MD #[address] [address] Care Management Social History Tobacco [...] the patient should call central scheduling at [phone]. documented in this encounter Plan of Treatment Upcoming Encounters Date Type Department Care Team (Late st Contact Info) Description 05/17/2024 2:45 PM VIDEO GAME TESTER Office Visit [facility] - Endocrinology - [place] #2 [place] [address] Annel Rod MD #[address] [phone] documented as of this encounter Visit Diagnoses Not on filedocumented in this encounter Additional Health Concerns Assessment Noted Time PHQ-9 Depression Total Score: 0 07/21/19 21 3:00 PM CDT documented as of this encounter Care Teams Svp Digital Sales Food & Cooking Relationship Specialty Start Date End Date Justen Gale MD #[address] [address] PCP - General Family Medicine 10/17/17 documented as of this encounter
--- OUTSIDE RECORDS SUMMARY | 2024-04-26 07:48 | XMS_ITS | Encounter Summary ---
Author Organization [facility] Address [address] [place] [address] Phone Care Team Providers Care Paper Cap Machine Operator Name Role Phone Justen Gale MD Primary Care Provider [phone] David Roberts APRN, SUPERVISOR BUILDING MAINTENANCE Unavailable [phone] Annel Rod MD Unavailable Reason for Visit * Reason Comments Medication Refill Encounter Details Date Type Department Care Team (Late st Contact Info) Description 02/17/2021 Refill [facility] #2 [place] [phone] Justen Gale MD #[address] [address] Medication Refill Social History Tobacco Use Types [...] 06/05/20 Office Visit [facility] APRN, [facility] [place] Showing recent visits within past 365 days and meeting all other requirements Future Appointments Date Type Provider Dept 03/02/21 Appointment Vince Hermosillo MD [facility] Showing future appointments within next 90 days and meeting all other requirements documented in this encounter Plan of Treatment Upcoming Encounters Date Type Department Care Team (Late st Contact Info) Description 05/17/2024 2:45 PM INVESTOR RELATIONS ASSOCIATE Office Visit [facility] - Endocrinology - [place] #2 [place] [address] Annel Rod MD #[address] [place] [address] documented as of this encounter Visit Diagnoses Not on filedocumented in this encounter Additional Health Concerns Assessment Noted Time PHQ-9 Depression Total Score: 0 07/21/19 21 3:00 PM CDT documented as of this encounter Care Teams Paper Cap Machine Operator Relationship Specialty Start Date End Date Justen Gale MD #[address] [address] PCP - General Family Medicine 10/17/17 David Roberts APRN, NETTA #2 [place] [address] Nurse Practitioner Advanced Practice Nurse 01/31/22 Annel Rod MD #[address] [place] [address] Consulting Physician Endocrinology 07/01/22 documented as of this encounter
--- OUTSIDE RECORDS SUMMARY | 2024-04-26 07:48 | XMS_ITS | Encounter Summary ---
Author Organization [facility] Address [address] [facility] [place] [address] Phone Care Team Providers Care Tipple Mechanic Name Role Phone Justen Gale MD Primary Care Provider [phone] Reason for Visit * Reason Onset Date Comments COVID-19 Exposure 04/19/2021 Encounter Details Date Type Department Care Team (Late st Contact Info) Description 04/19/2021 Nurse Triage [facility] [address] [place] [address] Justen Gale MD #[address] [address] COVID-19 Exposure Social History Tobacco Use Types [...] Leah Phan RN - 04/19/2021 5:26 PM 8TH GRADE MATHEMATICS TEACHER Situation: exposed 04/16/21 to COVID Call back [...] negative. Protocols used: CORONAVIRUS (COVID-19) DIAGNOSED OR [id number] 8TH GRADE MATHEMATICS TEACHER documented in this encounter Plan of Treatment Upcoming Encounters Date Type Department Care Team (Late st Contact Info) Description 05/17/2024 2:45 PM 8TH GRADE MATHEMATICS TEACHER [facility] - [place] [address] [place] [address] Annel Rod MD #[address] [phone] documented as of this encounter Visit Diagnoses Not on filedocumented in this encounter Additional Health Concerns Assessment Noted Time PHQ-9 Depression Total Score: 0 07/21/19 21 3:00 PM CDT documented as of this encounter Care Teams Tipple Mechanic Relationship Specialty Start Date End Date Justen Gale MD #[address] [address] PCP - General Family Medicine 10/17/17 documented as of this encounter
--- OUTSIDE RECORDS SUMMARY | 2024-04-26 07:48 | XMS_ITS | Encounter Summary ---
Author Organization [facility] Address [address] [place] [address] Phone Care Team Providers Care Building Code Inspector Name Role Phone Justen Gale MD Primary Care Provider [phone] Reason for Visit * Reason Onset Date Comments Back Pain 03/02/2021 Arm Pain 03/02/2021 Encounter Details Date Type Department Care Team (Late st Contact Info) Description 03/02/2021 [facility] [address] [place] [address] Justen Gale MD #[address] [address] Back Pain; Arm Pain Social [...] COVID-19? No / Unsure 03/02/2021 5:05 PM DEMAND PLANNER documented as of this encounter Miscellaneous Notes * Telephone Encounter - Annette Pike RN - 03/02/2021 4:53 PM DEMAND PLANNER SITUATION: Back and right arm pain BACKGROUND: [...] heavy and weird Patient is able to pharmacy picking technician items with her right hand, but feels [...] to the triager Protocols used: ARM PAIN-A-AH ND PLANNER documented in this encounter Plan of Treatment Upcoming Encounters Date Type Department Care Team (Late st Contact Info) Description 05/17/2024 2:45 PM DEMAND PLANNER Office Visit [facility] - Endocrinology - [place] #2 [place] [address] Annel Rod MD #[address] [address] documented as of this encounter Visit Diagnoses Not on filedocumented in this encounter Additional Health Concerns Assessment Noted Time PHQ-9 Depression Total Score: 0 07/21/19 21 3:00 PM CDT documented as of this encounter Care Teams Building Code Inspector Relationship Specialty Start Date End Date Justen Gale MD [address] [facility] [address] [place] [address] PCP - General Family Medicine 10/17/17 documented as of this encounter
--- OUTSIDE RECORDS SUMMARY | 2024-04-26 07:48 | XMS_ITS | Encounter Summary ---
Author Organization [facility] Address [address] [facility] [place] [address] Phone Care Team Providers Care Physicians Assistant Name Role Phone Justen Gale MD Primary Care Provider [phone] Reason for Visit * Reason Onset Date Comments COVID-19 05/08/2021 Fatigue 05/08/2021 Encounter Details Date Type Department Care Team (Late st Contact Info) Description 05/08/2021 Nurse Triage [facility] [address] [place] [phone] Justen Gale MD #[address] [address] COVID-19; Fatigue Social History Tobacco [...] Coronavirus / COVID-19? Yes 05/06/2021 6:58 PM UNIT AID documented as of this encounter Miscellaneous [...] week Protocols used: CORONAVIRUS (COVID-19) DIAGNOSED OR [id number], WEAKNESS (GENERALIZED) AND [id number]-OB AID documented in this encounter Plan of Treatment Upcoming Encounters Date Type Department Care Team (Late st Contact Info) Description 05/17/2024 2:45 PM UNIT AID Office Visit [facility] - Endocrinology - [place] #2 [place] [address] Annel Rod MD #2 [facility] [address] [place] [address] documented as of this encounter Visit Diagnoses Not on filedocumented in this encounter Additional Health Concerns Assessment Noted Time PHQ-9 Depression Total Score: 0 07/21/19 21 3:00 PM CDT documented as of this encounter Care Teams Physicians Assistant Relationship Specialty Start Date End Date Justen Gale MD #2 [facility] [address] [place] [address] PCP - General Family Medicine 10/17/17 documented as of this encounter
--- OUTSIDE RECORDS SUMMARY | 2024-04-26 07:48 | XMS_ITS | Encounter Summary ---
Author Organization [facility] Address [address] [place] [address] Phone Care Team Providers Care Admission Nurse Name Role Phone Justen Gale MD Primary Care Provider [phone] Reason for Visit * Reason Comments Medication Refill Encounter Details Date Type Department Care Team (Late st Contact Info) Description 06/22/2021 Refill [facility] Family Medicine [facility] #2 [place] [address] Justen Gale MD #[address] [address] Medication Refill Social History Tobacco Use Types [...] MD - 06/23/2021 2:01 PM CST approved MENTAL METAL WORKER HELPER * Telephone Encounter - Marlys Anderson RN - 06/23/2021 1:52 PM CST Medication failed the protocol, provider to review and approve the medication order if appropriate. Requested Prescriptions Pending Prescriptions Disp Refills Insulin Pen Needle (B-D ULTRAFINE III SHORT PEN) 31G X 8 MM Misc [Pharmacy Med Name: B-D PEN NDL SHRT [id number](09/06) KIT] 300 Pen Needle 1 Sig: USE [...] 90 days and meeting all other requirements MENTAL METAL WORKER HELPER documented in this encounter Plan of Treatment Upcoming Encounters Date Type Department Care Team (Late st Contact Info) Description 05/17/2024 2:45 PM ORNAMENTAL METAL WORKER HELPER Office Visit [facility] - Endocrinology [facility] #2 [place] [address] Annel Rod MD #[address] [address] documented as of this encounter Visit Diagnoses Not on filedocumented in this encounter Additional Health Concerns Assessment Noted Time PHQ-9 Depression Total Score: 0 07/21/19 21 3:00 PM CDT documented as of this encounter Care Teams Admission Nurse Relationship Specialty Start Date End Date Justen Gale MD #2 [facility] [address] [place] [address] PCP - General Family Medicine 10/17/17 documented as of this encounter
--- OUTSIDE RECORDS SUMMARY | 2024-04-26 07:48 | XMS_ITS | Encounter Summary ---
Author Organization [facility] Address [address] [place] [address] Phone Care Team Providers Care Hydraulics Teacher Name Role Phone Justen Gale MD Primary Care Provider Encounter Details Date Type Department Care Team (Late st Contact Info) Description 02/18/2021 Telephone [facility] Family Medicine [facility] #2 [place] [address] Justen Gale MD #[address] [address] Social History Tobacco Use Types Packs/Day Years [...] st Contact Info) Description 05/17/2024 2:45 PM CABLE TESTER Office Visit [facility] - Endocrinology - [place] #2 [place] [address] Annel Rod MD #2 [facility] [address] [place] [address] documented as of this encounter Visit Diagnoses Not on filedocumented in this encounter Additional Health Concerns Assessment Noted Time PHQ-9 Depression Total Score: 0 07/21/19 21 3:00 PM CDT documented as of this encounter Care Teams Hydraulics Teacher Relationship Specialty Start Date End Date Justen Gale MD #2 [facility] [address] [place] [address] PCP - General Family Medicine 10/17/17 documented as of this encounter
--- OUTSIDE RECORDS SUMMARY | 2024-04-26 07:48 | XMS_ITS | Encounter Summary ---
Author Organization [facility] [employer] Care Team Providers Care Gas Station Attendant Name Role Phone Justen Gale MD Primary Care Provider [phone] Encounter Details Date Type Department Care Team [...] Coronavirus / COVID-19? Yes 05/06/2021 6:58 PM TRADE SHOW MANAGER documented as of this encounter Plan of Treatment Upcoming Encounters Date Type Department Care Team (Late st Contact Info) Description 05/17/2024 2:45 PM TRADE SHOW MANAGER [facility] Visit [facility] - [place] #[address] [place] [address] Annel Rod MD #[address] [address] documented as of this encounter Visit Diagnoses Not on filedocumented in this encounter Additional Health Concerns Assessment Noted Time PHQ-9 Depression Total Score: 0 07/21/19 21 3:00 PM CDT documented as of this encounter Care Teams Gas Station Attendant Relationship Specialty Start Date End Date Justen Gale MD #2 [place] [address] PCP - General Family Medicine 10/17/17 documented as of this encounter
--- OUTSIDE RECORDS SUMMARY | 2024-04-26 07:48 | XMS_ITS | Encounter Summary ---
Author Organization [facility] Address [address] [place] [address] Phone Care Team Providers Care Supply Cataloguer Name Role Phone Justen Gale MD Primary Care Provider [phone] Reason for Visit * Reason Comments Urinary Tract Infection Encounter Details Date Type Department Care Team (Late st Contact Info) Description 10/08/2021 1:30 PM CDT Office Visit [facility] - Family [facility] #2 [place] [phone] Angelito Alegria, COLLAR FELLER, INDUSTRIAL SAFETY AND HEALTH SPECIALIST #[address] [address] Acute UTI (Primary Dx); UTI symptoms; S/P [...] incisions and was started on clindamycin per [facility] ER. She has no other acute complaints this time. The history is provided by the patient and medical records. No language translator was used. Urinary Tract Infection Associated symptoms [...] given to the patient. Patient (or patient lead customer service representative) demonstrates verbal understanding of instructions given. [...] st Contact Info) Description 05/17/2024 2:45 PM SLURRY MIXER Office Visit [facility] - Endocrinology - [place] #2 [place] [address] Annel Rod MD #[address] [phone] documented as of this encounter Procedures Procedure Name Priority Date/Time Associated Diagnosis Comments CULTURE, URINE Routine 10/08/2021 2:10 PM CDT Acute UTI POCT UA AUTOMATED W/O MICRO Routine 10/08/2021 1:24 PM CDT UTI symptoms documented in this encounter Results * CULTURE, URINE (10/08/2021 2:10 PM CDT) Pathologist [facility] CULTURE RESULTS ESCHERICHIA COLI 10/10/2021 3:10 PM CDT [facility] Comment:PRESUMPTIVE IDENTIFI CATION Culture URINE SPECIMEN [...] >=320 mcg/ml: Resistant us Angelito Alegria APRN, INDUSTRIAL SAFETY AND HEALTH SPECIALIST MICROBIOLOGY - G ENERAL ORDERABLES Final Result [facility] [address] [place] [address], * (ABNORMAL) POCT UA AUTOMATED W/O MICRO (10/08/2021 1:24 PM CDT) Pathologist [facility] POC UA SPECIFIC GRAVITY 1.010 URINE PH [...] Urine 10/08/2021 1:24 PM CDT Angelito Alegria COLLAR FELLER, INDUSTRIAL SAFETY AND HEALTH SPECIALIST POINT OF CARE TE STING (MANUAL) Final Result documented in this encounter Visit Diagnoses Diagnosis Acute UTI- Primary Urinary tract infection, site not specified UTI symptoms S/P lumbar laminectomy documented in this encounter Additional Health Concerns Assessment Noted Time PHQ-9 Depression Total Score: 0 07/21/19 21 3:00 PM CDT documented as of this encounter Care Teams Supply Cataloguer Relationship Specialty Start Date End Date Justen Gale MD #2 [place] [id number] PCP - General Family Medicine 10/17/17 documented as of this encounter
--- OUTSIDE RECORDS SUMMARY | 2024-04-26 07:48 | XMS_ITS | Encounter Summary ---
Author Organization [facility] Address [address] [facility] [place] [address] Phone Care Team Providers Care Compressed Gases Tester Name Role Phone Justen Gale MD Primary Care Provider [phone] Reason for Visit * Reason Onset Date Comments Urinary Tract Infection 10/07/2021 Encounter Details Date Type Department Care Team (Late st Contact Info) Description 10/07/2021 Nurse Triage [facility] [address] [place] [address] Justen Gale MD #[address] [address] Urinary Tract Infection Social History Tobacco Use [...] Contact Info) Description 05/17/2024 2:45 PM ELECTRONIC SYSTEMS TECHNICIAN Office Visit [facility] - Endocrinology - [place] #2 [place] [address] Annel Rod MD #2 [facility] [address] [place] [address] documented as of this encounter Visit Diagnoses Not on filedocumented in this encounter Additional Health Concerns Assessment Noted Time PHQ-9 Depression Total Score: 0 07/21/19 21 3:00 PM CDT documented as of this encounter Care Teams Compressed Gases Tester Relationship Specialty Start Date End Date Justen Gale MD #2 [facility] [address] [place] [address] PCP - General Family Medicine 10/17/17 documented as of this encounter
--- OUTSIDE RECORDS SUMMARY | 2024-04-26 07:48 | XMS_ITS | Encounter Summary ---
Author Organization [facility] Address [address] [place] [address] Phone Care Team Providers Care Node Js Developer Name Role Phone Justen Gale MD Primary Care Provider [phone] Reason for Visit * Reason Onset Date Comments Medication Refill 03/09/2021 Encounter Details Date Type Department Care Team (Late st Contact Info) Description 03/09/2021 Refill [facility]ocr[facility] - [place] #2 [place] [address] Annel Rod MD #[address] [address] Medication Refill Social History Tobacco [...] COVID-19? No / Unsure 03/02/2021 5:05 PM GRIZZLYMAN documented as of this encounter Miscellaneous Notes * Telephone Encounter - Madison Mccray CMA - 03/09/2021 10:07 AM GRIZZLYMAN Patient requesting refill on Lancets, script pended. ZLYMAN documented in this encounter Plan of Treatment Upcoming Encounters Date Type Department Care Team (Late st Contact Info) Description 05/17/2024 2:45 PM GRIZZLYMAN Office Visit [facility] - Endocrinology - [place] #2 [place] [phone] Annel Rod MD #2 [facility] [address] [place] [address] documented as of this encounter Visit Diagnoses Not on filedocumented in this encounter Additional Health Concerns Assessment Noted Time PHQ-9 Depression Total Score: 0 07/21/19 21 3:00 PM CDT documented as of this encounter Care Teams Node Js Developer Relationship Specialty Start Date End Date Justen Gale MD #2 [facility] [address] [place] [address] PCP - General Family Medicine 10/17/17 documented as of this encounter
--- OUTSIDE RECORDS SUMMARY | 2024-04-26 07:48 | XMS_ITS | Encounter Summary ---
Author Organization [facility] Address [address] [place] [address] Phone Care Team Providers Care Golf Cart Maker Name Role Phone Justen Gale MD Primary Care Provider [phone] Reason for Referral * Consult, Test & Initiate Treatment (Routine) - Closed Specialty Diagnoses / Procedures Referred By Contac t Referred To Contact Diagnoses Malignant neoplasm of upper-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, unspecified estrogen receptor status (HCC) Justen Gale MD #[address] [address] Phone: tel: fax: [facility] [address] [place] [address] Phone: tel: fax: Referral ID Status Reason Start Date Expiration Date Visits Re quested Visits Authorized [id number] Closed 06/21/2021 12 12 Scheduling Instructions Karly is being referred to Dr. Sarwat Gamez NPI# [id number] or other specialist in patient's insurance network [...] to 59.9 in adult (HCC) Thyroid nodule ET MAKING MACHINE OPERATOR HELPER * Consult, Test & Initiate Treatment (Routine) - Closed Specialty Diagnoses / Procedures Referred By Elyssa benavides Referred To Contact Diagnoses Malignant neoplasm of upper-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, unspecified estrogen receptor status (HCC) Justen Gale MD #2 [place] [address] Phone: tel: fax: Khris Arthur [address] [place] [address] Phone: tel: fax: Referral ID Status Reason Start Date Expiration Date Visits Re quested Visits Authorized [id number] Closed 06/21/2021 12 12 Scheduling Instructions Karly is being referred to Dr. Khris Medrano I # [id number] or other specialist in patient's insurance network for [phone]. See below for Karly's current medications, allergies [...] to 59.9 in adult (HCC) Thyroid nodule ET MAKING MACHINE OPERATOR HELPER Reason for Visit * Reason Onset Date Comments Referral 06/21/2021 Encounter Details Date Type Department Care Team (Late st Contact Info) Description 06/21/2021 Telephone [facility] - Family [facility] #2 [place] [address] Justen Gale MD #[address] [address] Referral Social History Tobacco Use Types Packs/Day [...] Stacy Huang RN - 06/21/2021 11:35 AM TABLET MAKING MACHINE OPERATOR HELPER Received a call for [facility] stone circular sawyer stated that a Nurse called and stated patient needs 2 referrals. Referrals pended. ET MAKING MACHINE OPERATOR HELPER documented in this encounter Plan of Treatment Upcoming Encounters Date Type Department Care Team (Late st Contact Info) Description 05/17/2024 2:45 PM TABLET MAKING MACHINE OPERATOR HELPER Office Visit [facility] - Endocrinology [facility] [place] #2 [place] [address] Annel Rod MD #2 [facility] [address] [place] [address] Scheduled Referrals Name Type Priority Associated Diagnoses [...] documented as of this encounter Care Teams Golf Cart Maker Relationship Specialty Start Date End Date Justen Gale MD #2 [facility] [address] [place] [address] PCP - General Family Medicine 10/17/17 documented as of this encounter
--- OUTSIDE RECORDS SUMMARY | 2024-04-26 07:48 | XMS_ITS | Encounter Summary ---
Author Organization [facility] [employer] Care Team Providers Care Core Oven Tender Name Role Phone Justen Gale MD Primary Care Provider [phone] Encounter Details Date Type Department Care Team [...] st Contact Info) Description 05/17/2024 2:45 PM STOCK DEALER [facility] Visit [facility] - [place] #2 [place] [address] Annel Rod MD #[address] [address] documented as of this encounter Visit Diagnoses Not on filedocumented in this encounter Additional Health Concerns Assessment Noted Time PHQ-9 Depression Total Score: 0 07/21/19 21 3:00 PM CDT documented as of this encounter Care Teams Core Oven Tender Relationship Specialty Start Date End Date Justen Gale MD #2 [place] [address] PCP - General Family Medicine 10/17/17 documented as of this encounter
--- OUTSIDE RECORDS SUMMARY | 2024-04-26 07:48 | XMS_ITS | Encounter Summary ---
Author Organization [facility] Address [address] [place] [address] Phone Care Team Providers Care Blindmaker Name Role Phone Justen Gale MD Primary Care Provider [phone] Reason for Visit * Reason Onset Date Comments Leg Pain 05/31/2021 Encounter Details Date Type Department Care Team (Late st Contact Info) Description 05/31/2021 Nurse Triage [facility] [address] [place] [address] Justen Gale MD #[address] [address] Leg Pain Social History Tobacco Use Types [...] Coronavirus / COVID-19? Yes 05/06/2021 6:58 PM REAL ESTATE PROFESSOR documented as of this encounter Miscellaneous Notes [...] (0-10): 7/10 Temp: Denies Treatment / Response: Maple ShadeCami wynnenol RECOMMENDATION: See care advice and disposition [...] will be evaluated today. Routing to provider. ESTATE PROFESSOR documented in this encounter Plan of Treatment Upcoming Encounters Date Type Department Care Team (Late st Contact Info) Description 05/17/2024 2:45 PM REAL ESTATE PROFESSOR Office Visit [facility] - Endocrinology - [place] [address] [place] [address] Annel Rod MD #[address] [phone] documented as of this encounter Visit Diagnoses Not on filedocumented in this encounter Additional Health Concerns Assessment Noted Time PHQ-9 Depression Total Score: 0 07/21/19 21 3:00 PM CDT documented as of this encounter Care Teams Blindmaker Relationship Specialty Start Date End Date Justen Gale MD #[address] [address] PCP - General Family Medicine 10/17/17 documented as of this encounter
--- OUTSIDE RECORDS SUMMARY | 2024-04-26 07:48 | XMS_ITS | Encounter Summary ---
Author Organization [facility] Address [address] [place] [address] Phone Care Team Providers Care Precision Agronomist Name Role Phone Justen Gale MD Primary Care Provider [phone] Reason for Referral * Consult, Test & Initiate Treatment (Routine) - Canceled Specialty Diagnoses / Procedures Referred By Contac t Referred To Contact Endocrinology Diagnoses Type 2 diabetes mellitus with diabetic polyneuropathy, with long-term current use of insulin ([facility]) Justen Gale MD #[address] [address] Phone: tel: fax: [facility] - Endocrinology [facility] #2 [place] [address] Phone: tel: fax: Referral ID Status Reason Start Date Expiration Date V isits Requested Visits Authorized [id number] Canceled 07/27/2021 1 11 Scheduling Instructions Karly is being referred for [id number], [id number] Please contact patient for scheduling questions or concerns. Reason for Visit * Reason Onset Date Comments Referral 07/27/2021 Encounter Details Date Type Department Care Team ([facility] st Contact Info) Description 07/27/2021 Telephone [facility]ology - [place] #2 [place] [address] Annel Rod MD [address] [phone] Referral Social History Tobacco Use Types Packs/Day [...] (Late Contact Info) Description 05/17/2024 2:45 PM COUNTY AGRICULTURAL AGENT [facility] Visit [facility] - Endocr[facility]ology - [place] #2 [place] [address] Annel Rod MD #[address] [phone] Scheduled Referrals Name Type Priority Associated Diagnoses [...] documented as of this encounter Care Teams Precision Agronomist Relationship Specialty Start Date End Date Justen Gale MD #[address] [address] PCP - General Family Medicine 10/17/17 documented as of this encounter
--- OUTSIDE RECORDS SUMMARY | 2024-04-26 07:49 | XMS_ITS | Encounter Summary ---
Author Organization [facility] Address [address] [place] [address] Phone Care Team Providers Care Base Cloth Inspector Name Role Phone Justen Gale MD Primary Care Provider [phone] Encounter Details Date Type Department Care Team (Late st Contact Info) Description 09/14/2020 Telephone [facility] - Gastroenterology - [place] #2 [place] [address] Genaro Jensen, DO [address] [address] Social History Tobacco Use Types [...] Contact Info) Description 05/17/2024 2:45 PM SCHOOL OFFICE MANAGER Office Visit [facility] - [place] #2 [place] [address] Annel Rod MD #[address] [address] documented as of this encounter Visit Diagnoses Not on filedocumented in this encounter Additional Health Concerns Assessment Noted Time PHQ-9 Depression Total Score: 0 07/21/19 21 3:00 PM CDT documented as of this encounter Care Teams Base Cloth Inspector Relationship Specialty Start Date End Date Justen Gale MD #[address] [address] PCP - General Family Medicine 10/17/17 documented as of this encounter
--- OUTSIDE RECORDS SUMMARY | 2024-04-26 07:49 | XMS_ITS | Encounter Summary ---
Author Organization [employer] Care Team Providers Care Electrical Electronics Engineer Name Role Phone Justen Gale MD Primary Care Provider [phone] Encounter Details Date Type Department Care Team [...] st Contact Info) Description 05/17/2024 2:45 PM SHIPMASTER Office Visit [facility]ology - [place] [address]2 [place] [address] Annel Rod MD #[address] [address] documented as of this encounter Visit Diagnoses Not on filedocumented in this encounter Additional Health Concerns Assessment Noted Time PHQ-9 Depression Total Score: 0 07/21/19 21 3:00 PM CDT documented as of this encounter Care Teams Electrical Electronics Engineer Relationship Specialty Start Date End Date Justen Gale MD #2 [place] [id number] PCP - General Family Medicine 10/17/17 documented as of this encounter
--- OUTSIDE RECORDS SUMMARY | 2024-04-26 07:49 | XMS_ITS | Encounter Summary ---
Author Organization [facility] Address [address] [place] [address] Phone Care Team Providers Care Lining Baster Name Role Phone Justen Gale MD Primary Care Provider Reason for Visit * Reason Onset Date Comments Erroneous Encounter - Disregard 10/16/2020 Encounter Details Date Type Department Care Team (Late st Contact Info) Description 10/16/2020 Telephone [facility] [address] [place] [address] Justen Gale MD #[address] [address] Erroneous Encounter - Disregard Social History Tobacco [...] st Contact Info) Description 05/17/2024 2:45 PM AUTOMATIC STACKER Office Visit [facility] - Endocrinology - [place] #2 [place] [address] Annel Rod MD #2 [facility] [address] [place] [address] documented as of this encounter Visit Diagnoses Not on filedocumented in this encounter Additional Health Concerns Assessment Noted Time PHQ-9 Depression Total Score: 0 07/21/19 21 3:00 PM CDT documented as of this encounter Care Teams Lining Baster Relationship Specialty Start Date End Date Justen Gale MD #2 [facility] [address] [place] [address] PCP - General Family Medicine 10/17/17 documented as of this encounter
--- OUTSIDE RECORDS SUMMARY | 2024-04-26 07:49 | XMS_ITS | Encounter Summary ---
Author Organization [facility] Address [address] [place] [address] Phone Care Team Providers Care Obiee Consultant Name Role Phone Justen Gale MD Primary Care Provider [phone] Reason for Visit * Reason Onset Date Comments Abdominal Pain 10/14/2020 missed call 10/14/2020 Chest Discomfort 10/14/2020 Encounter Details Date Type Department Care Team (Late st Contact Info) Description 10/14/2020 Nurse Triage [facility] Central Call Center [address] [place] [address] Justen Gale MD #[address] [address] Abdominal Pain; missed call; Chest Discomfort Social [...] able to make an appointment with the Tree And Shrub Technician for the first week in November, and [...] me, that I need to see a grout worker. ASSESSMENT: last bowel movement 2 days ago. [...] Contact Info) Description 05/17/2024 2:45 PM DIGITAL ANALYTICS MANAGER Office Visit [facility] #2 [place] [address] Annel Rod MD #2 [facility] [address] [place] [address] documented as of this encounter Visit Diagnoses Not on filedocumented in this encounter Additional Health Concerns Assessment Noted Time PHQ-9 Depression Total Score: 0 07/21/19 21 3:00 PM CDT documented as of this encounter Care Teams Obiee Consultant Relationship Specialty Start Date End Date Justen Gale MD #2 [facility] [address] [place] [address] PCP - General Family Medicine 10/17/17 documented as of this encounter
--- OUTSIDE RECORDS SUMMARY | 2024-04-26 07:49 | XMS_ITS | Encounter Summary ---
Author Organization [facility] Address [address] [place] [address] Phone Care Team Providers Care Automobile Repossessor Name Role Phone Justen Gale MD Primary Care Provider [phone] Reason for Referral * Consult, Test & Initiate Treatment (Less Than 4 Weeks) - Closed Specialty Diagnoses / Procedures Referred By Contac t Referred To Contact Diagnoses Diabetic gastroparesis associated with type 2 diabetes mellitus (HCC) Justen Gale MD #2 [facility] [address] [place] [address] Phone: tel: fax: [facility] GASTR[facility]OLOGY [address] [facility] [address] [place] [address] Phone: tel: fax: Referral ID Status Reason Start Date Expiration Date Visits Re quested Visits Authorized [id number] Closed 10/12/2020 1 11 Scheduling Instructions Karly [...] (Late Contact Info) Description 10/12/2020 Telephone [facility] [address] [place] [address] Justen Gale MD #2 [facility] [address] [place] [address] Referral Social History Tobacco Use Types Packs/Day [...] is asking for any GI referral (including [place]) if they can get her inwithin 3 months of referral placement. Would provider be willing to sign new referral? Order pended for your review. documented in this encounter Plan of Treatment Upcoming Encounters Date Type Department Care Team (Late Contact Info) Description 05/17/2024 2:45 PM SPEECH ASSISTANT Office Visit [facility] - Endocrinology - [place] #2 [place] [address] Annel Rod MD #2 [facility] [address] [place] [address] Scheduled Referrals Name Type Priority Associated Diagnoses [...] as of this encounter Care Teams Automobile Repossessor Relationship Specialty Start Date End Date Justen Gale MD #2 [facility] [address] [place] [address] PCP - General Family Medicine 10/17/17 documented as of this encounter
--- OUTSIDE RECORDS SUMMARY | 2024-04-26 07:49 | XMS_ITS | Encounter Summary ---
Author Organization [facility] Address [address] [place] [address] Phone Care Team Providers Care Sales And Management Trainee Name Role Phone Justen Gale MD Primary Care Provider [phone] Reason for Visit * Reason Onset Date Comments Referral 11/24/2020 Encounter Details Date Type Department Care Team (Late st Contact Info) Description 11/24/2020 Telephone [facility] [address] [place] [address] Justen Gale MD #[address] [address] Referral Social History Tobacco Use Types Packs/Day [...] Contact Info) Description 05/17/2024 2:45 PM DATA REPORT ANALYST Office Visit [facility] - Endocrinology [facility] #2 [place] [address] Annel Rod MD #2 [facility] [address] [place] [address] documented as of this encounter Visit Diagnoses Not on filedocumented in this encounter Additional Health Concerns Assessment Noted Time PHQ-9 Depression Total Score: 0 07/21/19 21 3:00 PM CDT documented as of this encounter Care Teams Sales And Management Trainee Relationship Specialty Start Date End Date Justen Gale MD #2 [facility] [address] [place] [address] PCP - General Family Medicine 10/17/17 documented as of this encounter
--- OUTSIDE RECORDS SUMMARY | 2024-04-26 07:49 | XMS_ITS | Encounter Summary ---
Author Organization [facility] Address [address] [place] [address] Phone Care Team Providers Care Betting Clerk Name Role Phone Justen Gale MD Primary Care Provider [phone] Reason for Referral * Consult, Test & Initiate Treatment (Routine) - Closed Specialty Diagnoses / Procedures Referred By Contac t Referred To Contact Diagnoses Radiculopathy, lumbosacral region Justen Gale MD #[address] [address] Phone: tel: fax: Taylor Smith MD #1 [place] [address] Phone: tel: Referral ID Status Reason Start Date Expiration Date Visits Re quested Visits Authorized [id number] Closed 10/01/2020 1 1 Scheduling Instructions Karly [...] [facility] Family Medicine - [place] #2 [place] [address] Justen Gale MD #2 [facility] [address] [place] [address] Referral Social History Tobacco Use Types Packs/Day [...] (Late Contact Info) Description 05/17/2024 2:45 PM ACETYLENE CYLINDER PACKING MIXER Office Visit [facility] - Endocrinology - [place] #2 [place] [address] Annel Rod MD #2 [facility] [address] [place] [address] documented as of this encounter Procedures Procedure Name Priority Date/Time Associated Diagnosis Comments EXTERNAL PAIN REFERRAL Routine 12:00 AM ACETYLENE CYLINDER PACKING MIXER Radiculopathy, lumbosacral region documented in this encounter Results * EXTERNAL PAIN REFERRAL (05/12/2021 12:00 AM ACETYLENE CYLINDER PACKING MIXER) 05/12/2021 us Justen Gale MD OUTPT REFERRALS EXT/INT Final Result SCAN documented in this encounter Visit Diagnoses Diagnosis Radiculopathy, lumbosacral region- Primary Thoracic or lumbosacral neuritis or radiculitis, unspecified documented in this encounter Additional Health Concerns Assessment Noted Time PHQ-9 Depression Total Score: 0 07/21/19 21 3:00 PM CDT documented as of this encounter Care Teams Betting Clerk Relationship Specialty Start Date End Date Justen Gale MD #[address] [address] PCP - General Family Medicine 10/17/17 documented as of this encounter
--- OUTSIDE RECORDS SUMMARY | 2024-04-26 07:49 | XMS_ITS | Encounter Summary ---
Author Organization [facility] Address [address] [place] [address] Phone Care Team Providers Care Clinical Support Nurse Name Role Phone Justen Gale MD Primary Care Provider [phone] Reason for Visit * Reason Onset Date Comments Abdominal Pain 09/20/2020 Encounter Details Date Type Department Care Team (Late st Contact Info) Description 09/20/2020 Nurse Triage [facility] [address] [place] [address] Justen Gale MD #[address] [address] Abdominal Pain Social History Tobacco Use Types [...] Contact Info) Description 05/17/2024 2:45 PM DATA SYSTEMS MANAGER Office Visit [facility] - Endocrinology - [place] #[address] [place] [address] Annel Rod MD #2 [facility] [address] [place] [address] documented as of this encounter Visit Diagnoses Not on filedocumented in this encounter Additional Health Concerns Assessment Noted Time PHQ-9 Depression Total Score: 0 07/21/19 21 3:00 PM CDT documented as of this encounter Care Teams Clinical Support Nurse Relationship Specialty Start Date End Date Justen Gale MD #2 [facility] [address] [place] [address] PCP - General Family Medicine 10/17/17 documented as of this encounter
--- OUTSIDE RECORDS SUMMARY | 2024-04-26 07:49 | XMS_ITS | Encounter Summary ---
Author Organization [facility] Address [address] [place] [address] Phone Care Team Providers Care Airport Operations Coordinator Name Role Phone Justen Gale MD Primary Care Provider [phone] Reason for Referral * Consult, Test & Initiate Treatment (Routine) - Closed Specialty Diagnoses / Procedures Referred By Contac t Referred To Contact Diagnoses Diabetic gastroparesis associated with type 2 diabetes mellitus (HCC) Angelito Alegria, ZAMZAM, CLAY MILLER #[address] [address] Phone: tel: fax: [facility] GASTR[facility]OLOGY [address] [facility] [address] [place] [address] Phone: tel: fax: Referral ID Status Reason Start Date Expiration Date Visits Re quested Visits Authorized [id number] Closed 09/29/2020 1 1 Scheduling Instructions Karly [...] (BMI) of 50.0 to 59.9 in adult ([facility]) Thyroid nodule Reason for Visit * Reason Comments Nausea persistant nausea Encounter Details Date Type Department Care Team (Late st Contact Info) Description 09/29/2020 3:30 PM CDT [facility] [place] [address] Angelito Alegria, MEDICAID ANALYST, CLAY MILLER #[address] [address] Diabetic gastroparesis associated with type 2 diabetes [...] Reported on 06/05/2020 02/17/20 Pili Elkins APN, CLAY MILLER Glucose Blood (ONE TOUCH ULTRA TEST) Strip [...] and instructions: 09/09/20 Yes Justen Gale MD [facility]. Devices Misc Supply and instructions: 02/25/19 Yes Justen Gale MD ondansetron (ZOFRAN) 4 MG Tablet TAKE 1 TABLET BY MOUTH EVERY 8 HOURS NEEDED FOR NAUSEA 08/07/19 Yes Justen Gale MD ondansetron (ZOFRAN-ODT) 4 MG TABLET DISPERSIBLE Take 4 mg by mouth. Patient not taking: Reported on 09/29/2020 06/25/20 Tyler Smith MD ONETOUCH DELICA LANCETS 33G [facility] 1 [...] finger with no complicattion. Value 7.6%. * nAgelito Alegria APN, CLAY MILLER - 09/29/2020 3:30 PM CDT Subjective: CC: [...] history is provided by the patient. No ship rigger apprentice was used. Nausea Associated symptoms include abdominal [...] III SHORT PEN) 31G X 8 MM [facility], USE SIX TIMES DAILY DIRECTED, Disp: 100 [...] given to the patient. Patient (or patient manufacturer's representative) demonstrates verbal understanding of instructions given. [...] st Contact Info) Description 05/17/2024 2:45 PM BLOCKMASON Office Visit [facility] - Endocrinology [facility] #2 [place] [address] Annel Rod MD #[address] [address] Scheduled Referrals Name Type Priority Associated Diagnoses [...] 6 09/29/2020 4:00 PM CDT Angelito Alegria MEDICAID ANALYST, CLAY MILLER POINT OF CARE TE STING (MANUAL) Final [...] documented as of this encounter Care Teams Airport Operations Coordinator Relationship Specialty Start Date End Date Justen Gale MD #[address] [address] PCP - General Family Medicine 10/17/17 documented as of this encounter
--- OUTSIDE RECORDS SUMMARY | 2024-04-26 07:49 | XMS_ITS | Encounter Summary ---
Author Organization [facility] Address [address] [place] [address] Phone Care Team Providers Care Civil Cad Tech Name Role Phone Justen Gale MD Primary Care Provider [phone] Encounter Details Date Type Department Care Team (Late st Contact Info) Description 12/03/2020 Transcribe Orders [facility] Sleep Lab [address] [place] [address] Pili Elkins APRN, IS ARCHITECT #[address] [address] Obstructive sleep apnea (Primary Dx) [...] st Contact Info) Description 05/17/2024 2:45 PM PHYSICIAN PRACTICE ADMINISTRATOR Office Visit [facility] - Endocrinology - [place] #[address] [place] [address] Annel Rod MD #2 [facility] [address] [place] [address] Scheduled Orders Name Type Priority Associated Diagnoses [...] documented as of this encounter Care Teams Civil Cad Tech Relationship Specialty Start Date End Date Justen Gale MD #2 [facility] [address] [place] [address] PCP - General Family Medicine 10/17/17 documented as of this encounter
--- OUTSIDE RECORDS SUMMARY | 2024-04-26 07:49 | XMS_ITS | Encounter Summary ---
Author Organization [facility] Address [address] [place] [address] Phone Care Team Providers Care Direct Support Professional Caregiver Name Role Phone Justen Gale MD Primary Care Provider [phone] Reason for Visit * Reason Onset Date Comments Medication Refill 10/12/2020 Medication Refill 10/14/2020 Encounter Details Date Type Department Care Team (Late st Contact Info) Description 10/12/2020 Telephone [facility] [address] [place] [address] Justen Gale MD #[address] [address] Medication Refill; Medication Refill Social History Tobacco [...] 2 months ago CRP elevated [facility] - Family [facility] - Pili Mueller APN, NETTA 4 months ago Increased urinary frequency [facility] - Family [facility] - Pili Mueller APN, NETTA 7 months ago Urinary frequency [facility] Group - Family Medicine - [place] Pili Elkins APN, CNP Upcoming Appointments SHEET LAYER - Recent and Past Visits Recent Visits Date Type Provider Dept 09/29/20 Office Visit Angelito Alegria APN, NETTA [facility] [place] 09/09/20 Office Visit Justen Gale MD [facility] [place] 07/20/20 Office Visit Pili Elkins APN, NETTA [facility] [place] 06/05/20 Office Visit Pili Elkins APN, NETTA [facility] [place] 02/17/20 Office Visit Pili Elkins APN, NETTA [facility] [place] 12/03/19 Office Visit Pili Elkins APN, NETTA [facility] [place] 11/05/19 Telemedicine Justen Gale MD [facility] 07/25/19 Telemedicine Justen Gael MD [facility] Showing recent visits within past 460 [...] st Contact Info) Description 05/17/2024 2:45 PM CREDIT PROFESSIONAL Office Visit [facility] Group - Endocrinology - [place] #2 [place] [address] Annel Rod MD #[address] [phone] documented as of this encounter Visit Diagnoses Not on filedocumented in this encounter Additional Health Concerns Assessment Noted Time PHQ-9 Depression Total Score: 0 07/21/19 21 3:00 PM CDT documented as of this encounter Care Teams Direct Support Professional Caregiver Relationship Specialty Start Date End Date Justen Gale MD #2 [place] [id number] PCP - General Family Medicine 10/17/17 documented as of this encounter
--- OUTSIDE RECORDS SUMMARY | 2024-04-26 07:49 | XMS_ITS | Encounter Summary ---
Author Organization [facility] Address [address] [address] Phone Care Team Providers Care Channeler Runner Name Role Phone Justen Gale MD Primary Care Provider [phone] Reason for Visit * Reason Onset Date Comments Follow-up 09/28/2020 Encounter Details Date Type Department Care Team (Late st Contact Info) Description 09/28/2020 Telephone [facility] [address] [place] [address] Justen Gale MD #[address] [address] Follow-up Social History Tobacco Use Types Packs/Day [...] her tomorrow. * Telephone Encounter - Delia Moy RN - 09/28/2020 1:39 PM CDT (PRD Verified) calling with patient on speaker as well, states patient is no better than when she went to the ER. She has a follow up on: All Patient Appointments Provider Department Dept Phone 09/29/2020 3:30 PM Angelito Alegria [facility] - Family Medicine - [place] [phone] She is not sure if she wants [...] eat a bit, cade if she gets alf through a meal without bloating and stomach [...] Contact Info) Description 05/17/2024 2:45 PM FIELD TRAINING MANAGER Office Visit [facility]ocr[facility] #2 [place] [address] Annel Rod MD #2 [facility] [address] [place] [address] documented as of this encounter Visit Diagnoses Not on filedocumented in this encounter Additional Health Concerns Assessment Noted Time PHQ-9 Depression Total Score: 0 07/21/19 21 3:00 PM CDT documented as of this encounter Care Teams Channeler Runner Relationship Specialty Start Date End Date Justen Gale MD #2 [facility] [address] [place] [address] PCP - General Family Medicine 10/17/17 documented as of this encounter
--- OUTSIDE RECORDS SUMMARY | 2024-04-26 07:49 | XMS_ITS | Encounter Summary ---
Author Organization [facility] Address [address] [place] [address] Phone Care Team Providers Care Dean Of Women Name Role Phone Justen Gale MD Primary Care Provider Reason for Visit * Reason Onset Date Comments Form Completion 09/25/2020 Encounter Details Date Type Department Care Team (Late st Contact Info) Description 09/25/2020 Telephone [facility] [place] #2 [place] [address] Justen Gale MD #[address] [address] Form Completion Social History Tobacco Use Types [...] on order form for CPAP supplies from [facility]. Signed and faxed. documented in this encounter Plan of Treatment Upcoming Encounters Date Type Department Care Team (Late st Contact Info) Description 05/17/2024 2:45 PM CASINO HOST Office Visit [facility] - Endocrinology - [place] #2 [place] [address] Annel Rod MD #2 [facility] [address] [place] [address] documented as of this encounter Visit Diagnoses Not on filedocumented in this encounter Additional Health Concerns Assessment Noted Time PHQ-9 Depression Total Score: 0 07/21/19 21 3:00 PM CDT documented as of this encounter Care Teams Dean Of Women Relationship Specialty Start Date End Date Justen Gale MD #2 [facility] [address] [place] [address] PCP - General Family Medicine 10/17/17 documented as of this encounter
--- OUTSIDE RECORDS SUMMARY | 2024-04-26 07:49 | XMS_ITS | Encounter Summary ---
Author Organization [facility] Address [address] [place] [address] Phone Care Team Providers Care Crushing Mill Operator Name Role Phone Justen Gale MD Primary Care Provider [phone] Reason for Visit * Reason Onset Date Comments Referral 10/29/2020 Encounter Details Date Type Department Care Team (Late st Contact Info) Description 10/29/2020 Telephone [facility] [address] [place] [address] Justen Gale MD #[address] [address] Referral Social History Tobacco Use Types Packs/Day [...] states Dr. Gale referred her to a registration scheduling specialist/oncologist at [facility].. States she went and was told she needs to see a program paraprofessional to check for autoimmune diseases and there [...] Contact Info) Description 05/17/2024 2:45 PM SENIOR MANUFACTURING ENGINEER Office Visit [facility] - Endocrinology - [place] #2 [place] [address] Annel Rod MD #[address] [address] documented as of this encounter Visit Diagnoses Not on filedocumented in this encounter Additional Health Concerns Assessment Noted Time PHQ-9 Depression Total Score: 0 07/21/19 21 3:00 PM CDT documented as of this encounter Care Teams Crushing Mill Operator Relationship Specialty Start Date End Date Justen Gale MD #2 [place] [address] PCP - General Family Medicine 10/17/17 documented as of this encounter
--- OUTSIDE RECORDS SUMMARY | 2024-04-26 07:49 | XMS_ITS | Encounter Summary ---
Author Organization [facility] Address [address] [facility] [place] [address] Phone Care Team Providers Care Associate Professor Of Forestry Name Role Phone Justen Gale MD Primary Care Provider [phone] Reason for Visit * Reason Onset Date Comments Rash 09/11/2020 Encounter Details Date Type Department Care Team (Late st Contact Info) Description 09/11/2020 Nurse Triage [facility] [address] [place] [address] Justen Gale MD #[address] [address] Rash Social History Tobacco Use Types Packs/Day [...] PCP wants to send her to a manager quantitative/oncologist. SITUATION: Rash BACKGROUND: Onset today (09/11) Unsure [...] fever) Protocols used: RASH OR REDNESS - [id number] documented in this encounter Plan of Treatment Upcoming Encounters Date Type Department Care Team (Late st Contact Info) Description 05/17/2024 2:45 PM LEGAL ADVISER Office Visit [facility] - Endocrinology - [place] #2 [place] [address] Annel Rod MD [address] [address] documented as of this encounter Visit Diagnoses Not on filedocumented in this encounter Additional Health Concerns Assessment Noted Time PHQ-9 Depression Total Score: 0 07/21/19 21 3:00 PM CDT documented as of this encounter Care Teams Associate Professor Of Forestry Relationship Specialty Start Date End Date Justen Gale MD #[address] [address] PCP - General Family Medicine 10/17/17 documented as of this encounter
--- OUTSIDE RECORDS SUMMARY | 2024-04-26 07:49 | XMS_ITS | Encounter Summary ---
Author Organization [facility] Address [address] [place] [address] Phone Care Team Providers Care Brass Roller Name Role Phone Justen Gale MD Primary Care Provider [phone] Reason for Visit * Reason Onset Date Comments supplies 10/27/2020 diabetic testing equipment and supplies Encounter Details Date Type Department Care Team (Late st Contact Info) Description 10/27/2020 Telephone [facility] [place] #2 [place] [address] Justen Gale MD #[address] [address] supplies (diabetic testing equipment and supplies) Social [...] PCP signature and office visit notes from [facility] for this pt's diabetic testing equipment and supplies. Verified with pt's , Jimmie (on PRD) that the patient did request this. Placed on PCP desk for consideration and if appropriate, signature. documented in this encounter Plan of Treatment Upcoming Encounters Date Type Department Care Team (Late st Contact Info) Description 05/17/2024 2:45 PM BAR HOST Office Visit [facility] - Endocrinology - [place] #2 [place] [address] Annel Rod MD #2 [facility] [address] [place] [address] documented as of this encounter Visit Diagnoses Not on filedocumented in this encounter Additional Health Concerns Assessment Noted Time PHQ-9 Depression Total Score: 0 07/21/19 21 3:00 PM CDT documented as of this encounter Care Teams Brass Roller Relationship Specialty Start Date End Date Justen Gale MD #2 [facility] [address] [place] [address] PCP - General Family Medicine 10/17/17 documented as of this encounter
--- OUTSIDE RECORDS SUMMARY | 2024-04-26 07:49 | XMS_ITS | Encounter Summary ---
Author Organization [facility] Address [address] [place] [address] Phone Care Team Providers Care Assistant Professor Of Biochemistry Name Role Phone Justen Gale MD Primary Care Provider [phone] Reason for Referral * Consult, Test & Initiate Treatment (Routine) - Canceled Specialty Diagnoses / Procedures Referred By Contac t Referred To Contact Diagnoses Diabetic gastroparesis (HCC) Justen Gale MD #[address] [address] Phone: tel: fax: Referral ID Status Reason Start Date Expiration Date V isits Requested Visits Authorized [id number] Canceled 11/22/2020 1 1 Scheduling Instructions Karly is being referred to [facility]/Dr Santana or other specialist in patient's insurance [...] left female breast (HCC) Restless legs syndrome ULL (obstructive sleep apnea) Hyperthyroidism Dysuria Acute cystitis [...] Info) Description 11/20/2020 Telephone [facility] #2 [place] [address] Justen Gale MD #2 [facility] [address] [place] [address] Social History Tobacco Use Types Packs/Day Years [...] for insurance referral for this pt to [facility] for diabeticgastroparesis. Pended referral. documented in this encounter Plan of Treatment Upcoming Encounters Date Type Department Care Team (Late st Contact Info) Description 05/17/2024 2:45 PM SULFIDE HEAD OPERATOR Office Visit [facility] - Endocrinology - [place] #2 [place] [address] Annel Rod MD #2 [facility] [address] [place] [address] Scheduled Referrals Name Type Priority Associated Diagnoses [...] as of this encounter Care Teams Assistant Professor Of Biochemistry Relationship Specialty Start Date End Date Justen Gale MD #[address] [address] PCP - General Family Medicine 10/17/17 documented as of this encounter
--- OUTSIDE RECORDS SUMMARY | 2024-04-26 07:49 | XMS_ITS | Encounter Summary ---
Author Organization [facility] [employer] Care Team Providers Care Electro Tech Name Role Phone Justen Gale MD Primary Care Provider [phone] Encounter Details Date Type Department Care Team [...] st Contact Info) Description 05/17/2024 2:45 PM CATECHIST Office Visit [facility] - Endocr[facility]ology - [place] #[address] [place] [address] Annel Rod MD #[address] [facility] [address] [address] documented as of this encounter Visit Diagnoses Not on filedocumented in this encounter Additional Health Concerns Assessment Noted Time PHQ-9 Depression Total Score: 0 07/21/19 21 3:00 PM CDT documented as of this encounter Care Teams Electro Tech Relationship Specialty Start Date End Date Justen Gale MD #2 [place] [id number] PCP - General Family Medicine 10/17/17 documented as of this encounter
--- OUTSIDE RECORDS SUMMARY | 2024-04-26 07:49 | XMS_ITS | Encounter Summary ---
Author Organization [facility] Address [address] [place] [address] Phone Care Team Providers Care Analytical Engineer Name Role Phone Justen Gale MD Primary Care Provider [phone] Reason for Visit * Reason Onset Date Comments Medication Problem 01/06/2021 Encounter Details Date Type Department Care Team (Late st Contact Info) Description 01/06/2021 Telephone [facility] [address] [place] [address] Justen Gale MD #[address] [address] Medication Problem Social History Tobacco Use Types [...] st Contact Info) Description 05/17/2024 2:45 PM RESEARCH CHEMIST Office Visit [facility] - Endocrinology - [place] #2 [place] [address] Annel Rod MD #2 [facility] [address] [place] [address] documented as of this encounter Visit Diagnoses Not on filedocumented in this encounter Additional Health Concerns Assessment Noted Time PHQ-9 Depression Total Score: 0 07/21/19 21 3:00 PM CDT documented as of this encounter Care Teams Analytical Engineer Relationship Specialty Start Date End Date Justen Gale MD #2 [facility] [address] [place] [address] PCP - General Family Medicine 10/17/17 documented as of this encounter
--- OUTSIDE RECORDS SUMMARY | 2024-04-26 07:49 | XMS_ITS | Encounter Summary ---
Author Organization [facility] Address [address] [place] [address] Phone Care Team Providers Care Human Resources Officer Name Role Phone Justen Gale MD Primary Care Provider [phone] Reason for Visit * Reason Onset Date Comments supplies 09/09/2020 CPAP Encounter Details Date Type Department Care Team (Late st Contact Info) Description 09/09/2020 Telephone [facility] [place] #2 [place] [address] Justen Gale MD #[address] [address] supplies (CPAP) Social History Tobacco Use Types [...] [facility] and their fax is [phone] States they will need the orders, a demographic page, and a copy of the patient's last sleep study. Their phone number is [phone] Routing to NURIS Wills. * Telephone Encounter - Elma Sykes RN - 09/11/2020 10:18 AM CDT Contacted [employer] and found that this pt has account with [employer]. Will send new order to them atthis time. * Telephone Encounter - Elma Sykes RN - 09/09/2020 2:37 PM CDT Unable to contact pt, talked to . I was calling to see what [employer] the pt gets her CPAPsupplies from. is not sure, he will have pt return call. Please find out name of company and sent that information to Elma LAWLER with Dr. Gale. Thank you. documented in this encounter Plan of Treatment Upcoming Encounters Date Type Department Care Team (Late st Contact Info) Description 05/17/2024 2:45 PM INSIDE SALES EXECUTIVE Office Visit [facility] - Endocrinology - [place] #2 [place] [address] Annel Rod MD #2 [facility] [address] [place] [address] documented as of this encounter Visit Diagnoses Not on filedocumented in this encounter Additional Health Concerns Assessment Noted Time PHQ-9 Depression Total Score: 0 07/21/19 21 3:00 PM CDT documented as of this encounter Care Teams Human Resources Officer Relationship Specialty Start Date End Date Justen Gale MD #2 [place] [facility] [address] [place] [address] PCP - General Family Medicine 10/17/17 documented as of this encounter
--- OUTSIDE RECORDS SUMMARY | 2024-04-26 07:49 | XMS_ITS | Encounter Summary ---
Author Organization [employer] Care Team Providers Care Pond Sawyer Name Role Phone Justen Gale MD Primary Care Provider [phone] Encounter Details Date Type Department Care Team [...] st Contact Info) Description 05/17/2024 2:45 PM TECHNOLOGY DEVELOPMENT INTERN Office Visit [facility]ology - [place] #2 [place] [address] Annel Rod MD #[address] [address] documented as of this encounter Visit Diagnoses Not on filedocumented in this encounter Additional Health Concerns Assessment Noted Time PHQ-9 Depression Total Score: 0 07/21/19 21 3:00 PM CDT documented as of this encounter Care Teams Pond Sawyer Relationship Specialty Start Date End Date Justen Gale MD #2 [place] [id number] PCP - General Family Medicine 10/17/17 documented as of this encounter
--- OUTSIDE RECORDS SUMMARY | 2024-04-26 07:50 | XMS_ITS | Encounter Summary ---
Author Organization [facility] Address [address] [place] [address] Phone Care Team Providers Care Vest Front Presser Name Role Phone Justen Gale MD Primary Care Provider [phone] Reason for Visit * Reason Onset Date Comments Back Pain 07/22/2020 Generalized Weakness 07/22/2020 Breathing Problem 07/22/2020 Encounter Details Date Type Department Care Team (Late st Contact Info) Description 07/22/2020 [facility] [address] [place] [address] Justen Gale MD #[address] [address] Back Pain; Generalized Weakness; Breathing Problem Social [...] or WORSE than normal Protocols used: BREATHING [id number] documented in this encounter Plan of Treatment Upcoming Encounters Date Type Department Care Team (Late st Contact Info) Description 05/17/2024 2:45 PM POWER OPERATOR Office Visit [facility] - Endocrinology - [place] #2 [place] [address] Annel Rod MD #2 [facility] [address] [place] [address] documented as of this encounter Visit Diagnoses Not on filedocumented in this encounter Additional Health Concerns Assessment Noted Time PHQ-9 Depression Total Score: 0 07/21/19 21 3:00 PM CDT documented as of this encounter Care Teams Vest Front Presser Relationship Specialty Start Date End Date Justen Gale MD #2 [facility] [address] [place] [address] PCP - General Family Medicine 10/17/17 documented as of this encounter
--- OUTSIDE RECORDS SUMMARY | 2024-04-26 07:50 | XMS_ITS | Encounter Summary ---
Author Organization [facility] Address [address] [place] [address] Phone Care Team Providers Care Rn Psych Name Role Phone Justen Gale MD Primary Care Provider [phone] Encounter Details Date Type Department Care Team (Late st Contact Info) Description 07/21/2020 Telephone [facility] - Gastroenterology - [place] #2 [place] [address] Nessa Padgett, [facility] #2 [place] [address] Social History Tobacco Use Types Packs/Day Years [...] st Contact Info) Description 05/17/2024 2:45 PM HULL GRINDER Office Visit [facility] - Endocrinology - [place] #2 [place] [address] Annel Rod MD #2 [facility] [address] [place] [address] documented as of this encounter Visit Diagnoses Not on filedocumented in this encounter Additional Health Concerns Assessment Noted Time PHQ-9 Depression Total Score: 0 07/21/19 21 3:00 PM CDT documented as of this encounter Care Teams Rn Psych Relationship Specialty Start Date End Date Justne Gale MD #2 [facility] [address] [place] [address] PCP - General Family Medicine 10/17/17 documented as of this encounter
--- OUTSIDE RECORDS SUMMARY | 2024-04-26 07:50 | XMS_ITS | Encounter Summary ---
Author Organization [employer] Care Team Providers Care Table Games Dual Rate Supervisor Name Role Phone Justen Gale MD Primary Care Provider [phone] Encounter Details Date Type Department Care Team [...] st Contact Info) Description 05/17/2024 2:45 PM CULTURAL ANTHROPOLOGY PROFESSOR Office Visit [facility] - Endocrinology - [place] #[address] [place] [address] Annel Rod MD #[address] [address] documented as of this encounter Visit Diagnoses Not on filedocumented in this encounter Additional Health Concerns Assessment Noted Time PHQ-9 Depression Total Score: 0 07/21/19 21 3:00 PM CDT documented as of this encounter Care Teams Table Games Dual Rate Supervisor Relationship Specialty Start Date End Date Justen Gale MD #2 [place] [id number] PCP - General Family Medicine 10/17/17 documented as of this encounter
--- OUTSIDE RECORDS SUMMARY | 2024-04-26 07:50 | XMS_ITS | Encounter Summary ---
Author Organization [facility] Address [address] [place] [address] Phone Care Team Providers Care Land Mobile Radio Technician Name Role Phone Justen Gale MD Primary Care Provider [phone] Encounter Details Date Type Department Care Team (Late st Contact Info) Description 07/27/2020 Telephone [facility] [address] [place] [address] Justen Gale MD #[address] [address] Social History Tobacco Use Types Packs/Day Years [...] st Contact Info) Description 05/17/2024 2:45 PM CARDROOM SUPERVISOR Office Visit [facility] - [place] #2 [facility] [place] [address] Annel Rod MD #2 [facility] [address] [place] [address] documented as of this encounter Visit Diagnoses Not on filedocumented in this encounter Additional Health Concerns Assessment Noted Time PHQ-9 Depression Total Score: 0 07/21/19 21 3:00 PM CDT documented as of this encounter Care Teams Land Mobile Radio Technician Relationship Specialty Start Date End Date Justen Gale MD #2 [facility] [address] [place] [address] PCP - General Family Medicine 10/17/17 documented as of this encounter
--- OUTSIDE RECORDS SUMMARY | 2024-04-26 07:50 | XMS_ITS | Encounter Summary ---
Author Organization [facility] Address [address] [place] [address] Phone Care Team Providers Care Human Resources Benefits Manager Name Role Phone Justen Gale MD Primary Care Provider [phone] Reason for Referral * Consult, Test & Initiate Treatment (Routine) - Closed Specialty Diagnoses / Procedures Referred By Contac t Referred To Contact Diagnoses Malignant neoplasm of upper-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, unspecified estrogen receptor status (HCC) Justen Gale MD #[address] [address] Phone: tel: fax: [facility] [address] [place] [address] Phone: tel: fax: Referral ID Status Reason Start Date Expiration Date Visits Re quested Visits Authorized [id number] Closed 09/01/2020 1 11 Scheduling Instructions Karly is being referred to Dr. Franco Fam or other specialist in patient's insurance network for provider covered by her insurance for DX: D72.829, CPT: 15033. See below for Karly's current medications, allergies [...] receptor status (HCC) Justen Gale MD #[address] [address] Phone: tel: fax: Khris Arthur [address] [place] [address] Phone: tel: fax: Referral ID Status Reason Start Date Expiration Date Visits Re quested Visits Authorized [id number] Closed 09/01/2020 1 11 Scheduling Instructions Karly is being referred to Dr. Khris Arthur or other specialist in patient's insurance network for provider covered by her insurance for DX: D72.829, CPT: 10218. See below for Karly's current medications, allergies [...] Disp: 90 Tablet, Rfl: 1 Misc. Devices [facility], Supply and instructions:, Disp: 1 Each, Rfl: [...] status (HCC) Justen Gale MD #2 [place] [address] Phone: tel: fax: Heaven Carrillo MD Phone: tel: fax: Referral ID Status Reason Start Date Expiration Date Visits Re quested Visits Authorized [id number] Closed 09/01/2020 1 11 Scheduling Instructions Karly is being referred to Dr. Heaven Carrillo or other specialist in patient's insurance network for provider covered by her insurance for DX: D72.829, CPT: 91884. See below for Karly's current medications, allergies [...] (BMI) of 50.0 to 59.9 in adult ([facility]) Thyroid nodule Reason for Visit * Reason Onset Date Comments Referral 09/01/2020 Encounter Details Date Type Department Care Team (Late st Contact Info) Description 09/01/2020 Telephone [facility] [address] [place] [address] Justen Gale MD #[address] [address] Referral Social History Tobacco Use Types Packs/Day [...] back directly. Heaven Carrillo, oncology: September 04 [facility] Blinder: Hematology: September 04 [facility] Medicare Replacement: , Attn Dx Code: D72.829 for both of the CPT: 97586 consult, evaluation & treat. Tax ID: [id number] Address: [address] [place] [address]. [place], [place]. Dr. Khris Arthur, Oncology: September 15: All referrals have been pended for your review/approval. documented in this encounter Plan of Treatment Upcoming Encounters Date Type Department Care Team (Late st Contact Info) Description 05/17/2024 2:45 PM BRUSH MACHINE SETTER Office Visit [facility] - Endocrinology - [place] #2 [place] [address] Annel Rod MD #[address] [address] Scheduled Referrals Name Type Priority Associated Diagnoses [...] of this encounter Care Teams Human Resources Benefits Manager Relationship Specialty Start Date End Date Justen Gale MD #2 [place] [id number] PCP - General Family Medicine 10/17/17 documented as of this encounter
--- OUTSIDE RECORDS SUMMARY | 2024-04-26 07:50 | XMS_ITS | Encounter Summary ---
Author Organization [facility] [employer] Care Team Providers Care Health Service Coordinator Name Role Phone Justen Gale MD [...] st Contact Info) Description 05/17/2024 2:45 PM GIZZARD PULLER Office Visit [facility] Endocr[facility]ology - [place] #[address] [place] [address] Annel Rod MD #[address] [address] documented as of this encounter Visit Diagnoses Not on filedocumented in this encounter Additional Health Concerns Assessment Noted Time PHQ-9 Depression Total Score: 0 07/21/19 21 3:00 PM CDT documented as of this encounter Care Teams Health Service Coordinator Relationship Specialty Start Date End Date Justen Gale MD #[address] [address] PCP - General Family Medicine 10/17/17 documented as of this encounter
--- OUTSIDE RECORDS SUMMARY | 2024-04-26 07:50 | XMS_ITS | Encounter Summary ---
Author Organization [employer] Care Team Providers Care Welder Assembler Name Role Phone Justen Gale MD Primary Care Provider [phone] Encounter Details Date Type Department Care Team [...] st Contact Info) Description 05/17/2024 2:45 PM ROOFING TILE SORTER Office Visit [facility]ocr[facility]ology - [place] #[address] [place] [address] Annel Rod MD #[address] [address] documented as of this encounter Visit Diagnoses Not on filedocumented in this encounter Additional Health Concerns Assessment Noted Time PHQ-9 Depression Total Score: 0 07/21/19 21 3:00 PM CDT documented as of this encounter Care Teams Welder Assembler Relationship Specialty Start Date End Date Justen Gale MD #2 [place] [id number] PCP - General Family Medicine 10/17/17 documented as of this encounter
--- OUTSIDE RECORDS SUMMARY | 2024-04-26 07:50 | XMS_ITS | Encounter Summary ---
Author Organization [facility] Address [address] [place] [address] Phone Care Team Providers Care Flow Coordinator Name Role Phone Justen Gale MD Primary Care Provider [phone] Reason for Referral * Consult, Test & Initiate Treatment (Routine) - Closed Specialty Diagnoses / Procedures Referred By Contac t Referred To Contact Endocrinology Diagnoses Type 2 diabetes mellitus with diabetic polyneuropathy, with long-term current use of insulin ([facility]) Justen Gale MD [address] [address] Phone: tel: fax: [facility] - Endocrinology [facility] #2 [place] [address] Phone: tel: fax: Referral ID Status Reason Start Date Expiration Date Visits Re quested Visits Authorized [id number] Closed 07/27/2020 1 11 Scheduling Instructions Karly [...] 07/27/2020 Telephone [facility] #2 [place] [address] Annel Rod MD #[address] [phone] Referral Social History Tobacco Use Types Packs/Day [...] st Contact Info) Description 05/17/2024 2:45 PM CONSULTING SERVICES MANAGER Office Visit [facility]ocr[facility] - [place] #2 [place] [phone] Annel Rod MD #[address] [phone] Scheduled Referrals Name Type Priority Associated Diagnoses [...] documented as of this encounter Care Teams Flow Coordinator Relationship Specialty Start Date End Date Justen Gale MD #2 [place] [address] PCP - General Family Medicine 10/17/17 documented as of this encounter
--- OUTSIDE RECORDS SUMMARY | 2024-04-26 07:50 | XMS_ITS | Encounter Summary ---
Author Organization [facility] Address [address] [place] [address] Phone Care Team Providers Care Pebble Mill Operator Name Role Phone Justen Gale MD Primary Care Provider [phone] Reason for Referral * Consult, Test & Initiate Treatment (Routine) - Closed Specialty Diagnoses / Procedures Referred By Contac t Referred To Contact Diagnoses Malignant neoplasm of overlapping sites of left female breast, unspecified estrogen receptor status (HCC) Justen Gale MD #[address] [address] Phone: tel: fax: Referral ID Status Reason Start Date Expiration Date Visits Re quested Visits Authorized [id number] Closed 07/23/2020 1 24 Scheduling Instructions Karly is being referred to [facility] or other specialist in patient's insurance [...] Disp: 90 Tablet, Rfl: 1 Misc. Devices [facility], Supply and instructions:, Disp: 1 Each, Rfl: [...] st Contact Info) Description 07/23/2020 Telephone [facility] [address] [place] [address] Justen Gale MD #[address] [address] Referral Social History Tobacco Use Types Packs/Day [...] - 07/23/2020 8:46 AM CDT Lina from [facility] in [facility] and is Looking for an oncology referral for the patient. Referral pended - please fax to [phone] documented in this encounter Plan of Treatment Upcoming Encounters Date Type Department Care Team (Late st Contact Info) Description 05/17/2024 2:45 PM ADULT NEUROPSYCHOLOGIST Office Visit [facility] - [place] #2 [place] [address] Annel Rod MD #[address] [place] [address] documented as of this encounter Results * [...] documented as of this encounter Care Teams Pebble Mill Operator Relationship Specialty Start Date End Date Justen Gale MD #[address] [facility] [address] [place] [address] PCP - General Family Medicine 10/17/17 documented as of this encounter
--- OUTSIDE RECORDS SUMMARY | 2024-04-26 07:50 | XMS_ITS | Encounter Summary ---
Author Organization [facility] Address [address] [place] [address] Phone Care Team Providers Care Data Base Design Analyst Name Role Phone Justen Gale MD Primary Care Provider [phone] Reason for Referral * Consult, Test & Initiate Treatment (Routine) - Closed Specialty Diagnoses / Procedures Referred By Contkristina t Referred To Contact Diagnoses Lower abdominal pain Justen Gale MD #[address] [address] Phone: tel: fax: Provider, Not On File [place] Referral ID Status Reason Start Date Expiration Date Visits Re quested Visits Authorized [id number] Closed 09/09/2020 1 1 Scheduling Instructions Karly is being referred to dr. Jayro sharma or other specialist in patient's insurance [...] III SHORT PEN) 31G X 8 MM [facility], USE SIX TIMES DAILY DIRECTED, Disp: 100 Pen Needle, Rfl: 11 Lantus SoloStar 100 UNIT/ML Solution Pen-injector, INJECT 50 UNITS SUBCUTANEOUSLY EVERY MORNING, Disp: 45 mL, Rfl: 1 lisinopril (PRINIVIL, ZESTRIL) 20 MG Tablet, Take 1 Tablet by mouth daily., Disp: 90 Tablet, Rfl: 1 Mirabegron ER 25 MG TABLET SR 24 HR, Take 25 mg by mouth., Disp: , Rfl: Misc. Devices [facility], Supply and instructions:, Disp: 1 Each, Rfl: [...] incontinence, unspecified type Justen Gale MD #[address] [address] Phone: tel: fax: [facility] [address] [place] [address] 11th [place] [address] [place] [address] Phone: tel: fax: Referral ID Status Reason Start Date Expiration Date Visits Re quested Visits Authorized [id number] Closed 09/09/2020 1 1 Scheduling Instructions Karly is being referred to [facility] or other specialist in patient's insurance [...] III SHORT PEN) 31G X 8 MM [facility], USE SIX TIMES DAILY DIRECTED, Disp: 100 Pen Needle, Rfl: 11 Lantus SoloStar 100 UNIT/ML Solution Pen-injector, INJECT 50 UNITS SUBCUTANEOUSLY EVERY MORNING, Disp: 45 mL, Rfl: 1 lisinopril (PRINIVIL, ZESTRIL) 20 MG Tablet, Take 1 Tablet by mouth daily., Disp: 90 Tablet, Rfl: 1 Mirabegron ER 25 MG TABLET SR 24 HR, Take 25 mg by mouth., Disp: , Rfl: Misc. Devices [facility], Supply and instructions:, Disp: 1 Each, Rfl: [...] polyneuropathy, with long-term current use of insulin ([facility]) Acute deep vein thrombosis (DVT) of proximal [...] Office Visit [facility] #2 [place] [address] Justen Gale MD #[address] [address] Urinary incontinence, unspecified type (Primary Dx); Lower [...] Blood testing frequency: 4 times aday 11/21/17 Justne Gale MD exemestane (AROMASIN) 25 MG Tablet Take 25 mg by mouth daily. Yes Tyler Smith MD famotidine (PEPCID) 20 MG Tablet Take 1 Tab by mouth 2 times daily. Patient not taking: Reported on 06/05/2020 02/17/20 Pili Elkins APN, HAT CLEANER Glucose Blood (ONE TOUCH ULTRA TEST) Strip Test four times daily. 02/11/20 Anenl Rod MD HYDROcodone-acetaminophen (NORCO) 7.5-325 MG Tablet [...] by mouth. 09/07/20 Yes Tyler Smith MD [facility]. Devices [facility] Supply and instructions: 02/25/19 Justen Gale MD [...] and denies medication side effects. [facility]. Discharge and then went to the medical center Admitted overnight to [place]. Sent home. Riner sick still. [facility] to [facility]. 09/05/2020 Discharged 09/07/2020. Went in due [...] Contact Info) Description 05/17/2024 2:45 PM ROCK CRUSHER [facility] Visit [facility] #2 [place] [address] Annel Rod MD #[address] [address] Scheduled Referrals Name Type Priority Associated Diagnoses [...] as of this encounter Care Teams Data Base Design Analyst Relationship Specialty Start Date End Date Justen Gale MD #2 [facility] [address] [place] [address] PCP - General Family Medicine 10/17/17 documented as of this encounter
--- OUTSIDE RECORDS SUMMARY | 2024-04-26 07:50 | XMS_ITS | Encounter Summary ---
Author Organization [facility] Address [address] [place] [address] Phone Care Team Providers Care Vice President & General Manager [employer] Name Role Phone Justen Gale MD Primary Care Provider [phone] David Roberts APRN, CLINICAL FACULTY Unavailable [phone] Annel Rod MD Unavailable Reason for Visit * Reason Onset Date Comments Medication Refill 08/06/2020 Encounter Details Date Type Department Care Team (Late st Contact Info) Description 08/06/2020 Refill [facility] #2 [place] [phone] Justen Gale MD #[address] [address] Medication Refill Social History Tobacco Use Types [...] Outpatient Visits 2 weeks ago [facility] Pili Muelelr APN, CLINICAL FACULTY 2 months ago Increased urinary frequency [facility] Pili Mueller APPLIED MATHEMATICIAN, CLINICAL FACULTY 5 months ago Urinary frequency [facility] Pili Mueller APPLIED MATHEMATICIAN, CLINICAL FACULTY 8 months ago Type 2 diabetes mellitus with diabetic polyneuropathy, with long- term current use of insulin (HCC) [facility] Pili Mueller APPLIED MATHEMATICIAN, CLINICAL FACULTY 9 months ago [facility] Justen Olmedo MD Upcoming Appointments Future Appointments In 6 days Pili Elkins APN, CLINICAL FACULTY [facility] Elias Mcgee [facility] COPIER AND PRINTER FIELD TECHNICIAN - Recent and Past Visits Recent Visits Date Type Provider Dept 07/20/20 Office Visit Pili Elkins APN, CLINICAL FACULTY [facility] [place] 06/05/20 Office Visit Pili Elkins APN, CLINICAL FACULTY [facility] [place] 02/17/20 Office Visit Pili Elkins APN, NETTA [facility] [place] 12/03/19 Office Visit Pili Elkins APN, NETTA [facility] [place] 11/05/19 Telemedicine Justen Gale MD [facility] 07/25/19 Telemedicine [facility] recent visits within past 460 days with a meds authorizing provider and meeting all other requirements Future Appointments Date Type Provider Dept 08/12/20 Appointment Pili Elkins APN, NETTA [facility] Showing future appointments within next 90 days [...] st Contact Info) Description 05/17/2024 2:45 PM DYEING MACHINE TENDER [facility] Visit [facility] - [place] [address] [place] [address] Annel Rod MD [address] [address] documented as of this encounter Visit Diagnoses Not on filedocumented in this encounter Additional Health Concerns Assessment Noted Time PHQ-9 Depression Total Score: 0 07/21/19 21 3:00 PM CDT documented as of this encounter Care Teams Vice President & General Manager [employer] Relationship Specialty Start Date End Date Justen Gale MD #2 [facility] [address] [place] [address] PCP - General Family Medicine 10/17/17 David Roberts APRN, CLINICAL FACULTY #2 [place] [address] Nurse Practitioner Advanced Practice Nurse 01/31/22 Annel Rod MD #[address] [address] Consulting Physician Endocrinology 07/01/22 documented as of this encounter
--- OUTSIDE RECORDS SUMMARY | 2024-04-26 07:50 | XMS_ITS | Encounter Summary ---
Author Organization [facility] Address [address] [place] [address] Phone Care Team Providers Care Heat Treater Apprentice Name Role Phone Justen Gale MD Primary Care Provider Encounter Details Date Type Department Care Team (Late st Contact Info) Description 08/12/2020 Telephone [facility] #2 [place] [address] Justen Gale MD #[address] [address] Social History Tobacco Use Types Packs/Day Years [...] st Contact Info) Description 05/17/2024 2:45 PM SOCIOCULTURAL ANTHROPOLOGY PROFESSOR Office Visit [facility]ocr[facility]ology - [place] #2 [place] [address] Annel Rod MD #2 [facility] [address] [place] [address] documented as of this encounter Visit Diagnoses Not on filedocumented in this encounter Additional Health Concerns Assessment Noted Time PHQ-9 Depression Total Score: 0 07/21/19 21 3:00 PM CDT documented as of this encounter Care Teams Heat Treater Apprentice Relationship Specialty Start Date End Date Justen Gale MD #2 [facility] [address] [place] [address] PCP - General Family Medicine 10/17/17 documented as of this encounter
--- OUTSIDE RECORDS SUMMARY | 2024-04-26 07:51 | XMS_ITS | Encounter Summary ---
Author Organization [facility] [employer] Care Team Providers Care Tar Pot Man Name Role Phone Justen Gale MD [...] st Contact Info) Description 05/17/2024 2:45 PM SPINNING MULE OPERATOR [facility] - [place] #2 [place] [address] Annel Rod MD [address] [address] documented as of this encounter Visit Diagnoses Not on filedocumented in this encounter Additional Health Concerns Assessment Noted Time PHQ-9 Depression Total Score: 0 09/08/19 19 1:00 PM CDT documented as of this encounter Care Teams Tar Pot Man Relationship Specialty Start Date End Date Justen Gale MD #2 [place] [address] PCP - General Family Medicine 10/17/17 documented as of this encounter
--- OUTSIDE RECORDS SUMMARY | 2024-04-26 07:51 | XMS_ITS | Encounter Summary ---
Author Organization [facility] Address [address] [place] [address] Phone Care Team Providers Care Weighing Station Operator Name Role Phone Justen Gale MD Primary Care Provider [phone] David Roberts APRN, SPECIALTY DEVELOPMENT CONSULTANT Unavailable [phone] Annel Rod MD Unavailable Encounter Details Date Type Department Care Team (Late st Contact Info) Description 06/05/2020 [facility] [address] [place] [address] Pili Elkins APRN, SPECIALTY DEVELOPMENT CONSULTANT #[address] [address] Frequency of micturition Social History [...] COVID-19? No / Unsure 2020 11:37 AM CLEARANCE REP documented as of this encounter Plan of Treatment Upcoming Encounters Date Type Department Care Team (Late st Contact Info) Description 05/17/2024 2:45 PM CLEARANCE REP [facility] - [place] #[address] [place] [address] [facility]el Rod MD [facility] [address] [address] documented as of this encounter Procedures Procedure Name Priority Date/Time Associated Diagnosis Comments URINALYSIS REFLEX IF INDICATED BY ABNORMAL RESULTS Routine 06/05/2020 4:45 PM CLEARANCE REP Frequency of micturition documented in this encounter Results * (ABNORMAL) URINALYSIS REFLEX IF INDICATED BY ABNORMAL RESULTS (06/05/2020 4:45 PM CLEARANCE REP) SPECIFIC GRAVITY 1.020 1.003 - 1.030 06/05/2020 5:19 PM CLEARANCE REP [facility] URINE PH 5.0 5.0 - 9.0 06/05/2020 5:19 PM CLEARANCE REP [facility] WBC ESTERASE Negative Negative 06/05/2020 5:19 PM CLEARANCE REP [facility] NITRITE Negative Negative 06/05/2020 5:19 PM CLEARANCE REP [facility] PROTEIN, RANDOM URINE Negative Negative 06/05/2020 5:19 PM CLEARANCE REP [facility] URINE GLUCOSE, QUAL Negative Negative 06/05/2020 5:19 PM CLEARANCE REP [facility] URINE KETONES Negative Negative 06/05/2020 5:19 PM CLEARANCE REP [facility] UROBILINOGEN Normal Normal mg/dL 06/05/2020 5:19 PM CLEARANCE REP [facility] URINE BILIRUBIN Negative Negative 5:19 PM CLEARANCE REP [facility] URINE BLOOD 25 /uL(A) Negative leandro/ul 06/05/2020 5:19 PM CLEARANCE REP [facility] URINALYSIS COLOR Yellow 06/05/19 5:19 PM CLEARANCE REP [facility] URINALYSIS CLARITY Clear 06/05/2020 5:19 PM CLEARANCE REP [facility] WBC (Urine) 0-5 Negative, 0-5 /hpf 06/05/2020 5:19 PM CLEARANCE REP [facility] URINE RBC'S 3-5(A) Negative, 0-2 /hpf 06/05/2020 5:19 PM CLEARANCE REP [facility] EPITHELIAL CELLS Small amount /lpf 2020 5:19 PM CLEARANCE REP [facility] BACTERIA, URINE Few(A) Negative /hpf 06/05/2020 5:19 PM CLEARANCE REP [facility] Urine URINE SPECIMEN / Unknown Non-Phlebotomy Collection / Unknown 06/05/2020 4:45 PM CLEARANCE REP 06/05/2020 5:00 PM CLEARANCE REP us Pili Elkins YARN REWINDER, SPECIALTY DEVELOPMENT CONSULTANT URINE ORDERABLES Fin al Result [facility] #1 [place] [address] documented in this encounter Visit Diagnoses Diagnosis Frequency of micturition Urinary frequency documented in this encounter Additional Health Concerns Assessment Noted Time PHQ-9 Depression Total Score: 0 09/08/19 1:00 PM CDT documented as of this encounter Care Teams Weighing Station Operator Relationship Specialty Start Date End Date Justen Gale MD #[address] [address] PCP - General Family Medicine 10/17/17 David Roberts APRN, SPECIALTY DEVELOPMENT CONSULTANT #2 [place] [address] Nurse Practitioner Advanced Practice Nurse 01/31/22 Annel Rod MD #[address] [address] Consulting Physician Endocrinology 07/01/22 documented as of this encounter
--- OUTSIDE RECORDS SUMMARY | 2024-04-26 07:51 | XMS_ITS | Encounter Summary ---
Author Organization [facility] Address [address] [place] [address] Phone Care Team Providers Care Optical Effects Line Up Person Name Role Phone Justen Gale MD Primary Care Provider [phone] Reason for Visit * Reason Comments Medication Refill Encounter Details Date Type Department Care Team (Late st Contact Info) Description 03/08/2020 Refill [facility] [address] [place], [place] [phone] Justen Gale MD #[address] [address] Medication Refill Social History Tobacco Use Types [...] AM CST Medication(s) refilled and signed per [facility] Chronic Medication Refill Standing Order for [...] Outpatient Visits 3 weeks ago Urinary frequency [facility] APN, CNP 3 months ago Type 2 diabetes mellitus with diabetic polyneuropathy, with long- term current use of insulin ([facility]) [facility] APN, CNP 4 months ago Nausea [facility] Justen Olmedo MD 7 months ago [facility] Justen Olmedo MD 10 months ago Preop examination [facility] Justen Olmedo MD Upcoming Appointments ASSOCIATE CONSULTING ENGINEER - Recent and Past Visits Recent Visits Date Type Provider Dept 02/17/20 Office Visit Pili Elkins APN, CNP [facility] [place] 12/03/19 Office Visit Pili Elkins APN, CNP [facility] [place] 11/05/19 Telemedicine Justen Gale MD [facility] 07/25/19 Telemedicine Justen Gale MD [facility] 04/15/19 Office Visit Justen Gale MD [facility] 02/25/19 Office Visit Justen Gale MD [facility] [place] Showing recent visits within past 460 days with a meds authorizing provider and meeting all other requirements Future Appointments No visits were found meeting these conditions. Showing future appointments within next 90 days with a meds authorizing provider and meeting all other requirements Passed - Last BP in normal range BP Readings from Last 1 Encounters: 02/17/20 130/82 SIONS ENGINEER documented in this encounter Plan of Treatment Upcoming Encounters Date Type Department Care Team (Late st Contact Info) Description 05/17/2024 2:45 PM EMISSIONS ENGINEER Office Visit [facility] - [place] #[address] [place] [address] Annel Rod MD #2 [facility] [address] [place] [address] documented as of this encounter Visit Diagnoses Not on filedocumented in this encounter Additional Health Concerns Assessment Noted Time PHQ-9 Depression Total Score: 0 09/08/19 19 1:00 PM CDT documented as of this encounter Care Teams Optical Effects Line Up Person Relationship Specialty Start Date End Date Justen Gale MD #2 [facility] [address] [place] [address] PCP - General Family Medicine 10/17/17 documented as of this encounter
--- OUTSIDE RECORDS SUMMARY | 2024-04-26 07:51 | XMS_ITS | Encounter Summary ---
Author Organization [facility] Address [address] [place] [address] Phone Care Team Providers Care Hardwood Floor Installation Helper Name Role Phone Justen Gale MD Primary Care Provider [phone] Reason for Visit * Reason Onset Date Comments Medication Management 05/07/2020 Encounter Details Date Type Department Care Team (Late st Contact Info) Description 05/07/2020 Telephone [facility] [address] [place] [address] Justen Gale MD #[address] [address] Medication Management Social History Tobacco Use Types [...] hours. Patient called back and advised to flower picker her insulin tonight. See care advice [...] and denies further questions. Teach-back method utilized. TER documented in this encounter Plan of Treatment Upcoming Encounters Date Type Department Care Team (Late st Contact Info) Description 05/17/2024 2:45 PM CRESTER Office Visit [facility] - Endocrinology [facility] #2 [place] [address] Annel Rod MD #2 [facility] [address] [place] [address] documented as of this encounter Visit Diagnoses Not on filedocumented in this encounter Additional Health Concerns Assessment Noted Time PHQ-9 Depression Total Score: 0 09/08/19 19 1:00 PM CDT documented as of this encounter Care Teams Hardwood Floor Installation Helper Relationship Specialty Start Date End Date Justen Gale MD #2 [facility] [address] [place] [address] PCP - General Family Medicine 10/17/17 documented as of this encounter
--- OUTSIDE RECORDS SUMMARY | 2024-04-26 07:51 | XMS_ITS | Encounter Summary ---
Author Organization [facility] Address [address] [facility] [place] [address] Phone Care Team Providers Care Encapsulator Name Role Phone Justen Gale MD Primary Care Provider [phone] Reason for Visit * Reason Onset Date Comments High Blood Sugar 05/07/2020 Encounter Details Date Type Department Care Team (Late st Contact Info) Description 05/07/2020 Nurse Triage [facility] [address] [place] [address] Justen Gale MD #[address] [address] High Blood Sugar Social History Tobacco Use [...] Laury Marte RN - 05/07/2020 10:57 PM SHOWROOM EXECUTIVE DIRECTOR SITUATION (caller perception/concerns): High blood sugar BACKGROUND [...] Protocols used: DIABETES - HIGH BLOOD SUGAR-A- ROOM EXECUTIVE DIRECTOR documented in this encounter Plan of Treatment Upcoming Encounters Date Type Department Care Team (Late st Contact Info) Description 05/17/2024 2:45 PM SHOWROOM EXECUTIVE DIRECTOR Office [facility] - Endocrinology - [place] #2 [place] [address] Annel Rod MD #[address] [address] documented as of this encounter Visit Diagnoses Not on filedocumented in this encounter Additional Health Concerns Assessment Noted Time PHQ-9 Depression Total Score: 0 09/08/19 19 1:00 PM CDT documented as of this encounter Care Teams Encapsulator Relationship Specialty Start Date End Date Justen Gale MD #[address] [address] PCP - General Family Medicine 10/17/17 documented as of this encounter
--- OUTSIDE RECORDS SUMMARY | 2024-04-26 07:51 | XMS_ITS | Encounter Summary ---
Author Organization [facility] Address [address] [place] [address] Phone Care Team Providers Care Salad Chef Name Role Phone Justen Gale MD Primary Care Provider [phone] Reason for Visit * Reason Onset Date Comments Results 07/03/2020 Encounter Details Date Type Department Care Team (Late st Contact Info) Description 07/03/2020 Telephone [facility]ology - [place] #2 [place] [address] Nessa Padgett, [facility] #2 [place] [address] Results Social History Tobacco Use Types Packs/Day [...] COVID-19? No / Unsure 06/29/2020 8:43 AM CAN LINE OPERATOR documented as of this encounter Miscellaneous Notes * Telephone Encounter - Rosi Simons RN - 07/03/2020 10:55 AM CST LETTER SENT LINE OPERATOR * Telephone Encounter - Rosi Simons RN - 07/03/2020 10:54 AM CST ----- Message from JAMAR Elkins sent at 02/12/2020 10:56 AM CDT ----- Please advise gastric emptying study confirms and delayed gastric emptying. Recommend Reglan 5 mg twice daily. If she agrees please pend order for Reglan 5 mg 1 p.o. twice daily for gastroparesis. Follow-up in approximately 4 weeks. LINE OPERATOR documented in this encounter Plan of Treatment Upcoming Encounters Date Type Department Care Team (Late st Contact Info) Description 05/17/2024 2:45 PM CAN LINE OPERATOR Office Visit [facility] - Endocrinology - [place] #2 [place] [address] Annel Rod MD #[address] [address] documented as of this encounter Visit Diagnoses Not on filedocumented in this encounter Additional Health Concerns Assessment Noted Time PHQ-9 Depression Total Score: 0 09/08/19 19 1:00 PM CDT documented as of this encounter Care Teams Salad Chef Relationship Specialty Start Date End Date Justen Gale MD #2 [facility] [address] [place] [address] PCP - General Family Medicine 10/17/17 documented as of this encounter
--- OUTSIDE RECORDS SUMMARY | 2024-04-26 07:51 | XMS_ITS | Encounter Summary ---
Author Organization [facility] Address [address] [place] [address] Phone Care Team Providers Care Facility Manager Histology Name Role Phone Justen Gale MD Primary Care Provider [phone] Encounter Details Date Type Department Care Team (Late st Contact Info) Description 02/11/2020 Refill [facility] Endocr[facility]ology - [place] #2 [place] [address] Annel Rod MD #[address] [address] Social History Tobacco Use Types [...] Contact Info) Description 05/17/2024 2:45 PM PHYSICIAN OBSTETRICIAN Office Visit [facility] - Endocrinology - [place] #2 [place] [address] Annel Rod MD #2 [facility] [address] [place] [address] documented as of this encounter Visit Diagnoses Not on filedocumented in this encounter Additional Health Concerns Assessment Noted Time PHQ-9 Depression Total Score: 0 09/08/19 19 1:00 PM CDT documented as of this encounter Care Teams Facility Manager Histology Relationship Specialty Start Date End Date Justen Gale MD #2 [facility] [address] [place] [address] PCP - General Family Medicine 10/17/17 documented as of this encounter
--- OUTSIDE RECORDS SUMMARY | 2024-04-26 07:51 | XMS_ITS | Encounter Summary ---
Author Organization [facility] Address [address] [place] [address] Phone Care Team Providers Care [employer] Flatbed Truck Driver Name Role Phone Justen Gale MD Primary Care Provider [phone] Reason for Visit * Reason Comments Follow-up chronic UTI Post-Hospital Follow-up [place] for GI issues Encounter Details Date Type Department Care Team (Late st Contact Info) Description 02/17/2020 10:30 AM CDT Office Visit [facility] - Family Medicine [facility] #2 [place] [phone] Pili Elkins APRN, CORPORATION OFFICER #[address] [phone] Urinary frequency (Primary Dx); Gastroesophageal reflux disease [...] * Patient Instructions* Pili Elkins, ANA LUISA, CORPORATION OFFICER - 02/17/2020 10:30 AM CDT Images from [...] that are mashed or put through a cheese blender. Plus, you may need to stay away [...] your health. For more information, contact the [place] [employer],??www.diabetes.org. Long-term concerns?? With treatment, most people can manage their symptoms and keep up their usual routines. If your symptoms are moderate to severe, you may need to see your healthcare provider more often for checkups. Also, other treatments will likely be needed. [employer] last reviewed this educational content on 09/22/2018 ?? [id number] [employer]. [address] [place] [address], [place] [address]. All rights reserved. This information is not intended as a substitute for professional medical care. Always follow your healthcare professional's instructions. documented in this encounter Progress Notes * Kerry Selby, LIVE TRUCK TECHNICIAN - 02/17/2020 10:30 AM CDT Karly Montero [...] DAILY DIRECTED 02/07/20 Yes Justen Gale MD LANT[facility] SOLOSTAR [address] [...] BY MOUTH EVERY NIGHT 09/18/18 Yes Justen Glae MD There are no discontinued medications. I [...] ??? Follow-up chronic UTI ??? Post-Hospital Follow-up [place] for GI issues Subjective: Ms. Karly Marques is a 64 y.o. female here today for above. 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 FOLLOWUP: Follow-up Information Return if symptoms worsen [...] given to the patient. Patient (or patient product support sales representative) demonstrates verbal understanding of instructions [...] st Contact Info) Description 05/17/2024 2:45 PM WEBSITE OPTIMIZATION STRATEGIST Office Visit [facility] - [place] [address] [place] [phone] Annel Rod MD #[address] [phone] documented as of this encounter Procedures Procedure [...] DISTAL URETHRAL CONTAMINANTS. 02/18/2020 8:30 PM CDT [facility] Culture URINE SPECIMEN COLLECTION, CLEAN CATCH / Unknown Non-Phlebotomy Collection / Unknown 02/17/2020 11:41 AM CDT 02/17/2020 11:41 AM CDT us Pili Elkins APRN, CORPORATION OFFICER MICROBIOLOGY - GENER AL ORDERABLES Final Result [facility] [address] [place] [address], * (ABNORMAL) POCT UA AUTOMATED W/O MICRO [...] 02/17/2020 11:1 8 AM CDT Pili Elkins UNDERBASTER, CORPORATION OFFICER POINT OF CARE TESTIN G (MANUAL) Final Result documented in this encounter Visit Diagnoses Diagnosis Urinary frequency- Primary Gastroesophageal reflux disease without esophagitis Esophageal reflux Candidiasis of mouth documented in this encounter Additional Health Concerns Assessment Noted Time PHQ-9 Depression Total Score: 0 09/08/19 19 1:00 PM CDT documented as of this encounter Care Teams Regional Company Flatbed Truck Driver Relationship Specialty Start Date End Date Justen Gale MD #2 [place] [id number] PCP - General Family Medicine 10/17/17 documented as of this encounter
--- OUTSIDE RECORDS SUMMARY | 2024-04-26 07:51 | XMS_ITS | Encounter Summary ---
Author Organization [facility] Address [address] [place] [address] Phone Care Team Providers Care Staffing Analyst Name Role Phone Justen Gale MD Primary Care Provider [phone] Reason for Visit * Reason Onset Date Comments ED f/u 07/16/2020 Encounter Details Date Type Department Care Team (Late st Contact Info) Description 07/16/2020 Telephone [facility] [address] [place] [address] Justen Gale MD #[address] [address] ED f/u Social History Tobacco Use Types [...] st Contact Info) Description 05/17/2024 2:45 PM CONCRETE ENGINEER Office Visit [facility] - Endocrinology - [place] #2 [place] [address] Annel Rod MD #2 [facility] [address] [place] [address] documented as of this encounter Visit Diagnoses Not on filedocumented in this encounter Additional Health Concerns Assessment Noted Time PHQ-9 Depression Total Score: 0 09/08/19 19 1:00 PM CDT documented as of this encounter Care Teams Staffing Analyst Relationship Specialty Start Date End Date Justen Gale MD #2 [facility] [address] [place] [address] PCP - General Family Medicine 10/17/17 documented as of this encounter
--- OUTSIDE RECORDS SUMMARY | 2024-04-26 07:51 | XMS_ITS | Encounter Summary ---
Author Organization [facility] Care Team Providers Care Parts Professional Name Role Phone Justen Gale MD Primary Care Provider [phone] Encounter Details Date Type Department Care Team [...] COVID-19? No / Unsure 06/29/2020 8:43 AM REGIONAL DEDICATED TRUCK DRIVER documented as of this encounter Plan of Treatment Upcoming Encounters Date Type Department Care Team (Late st Contact Info) Description 05/17/2024 2:45 PM REGIONAL DEDICATED TRUCK DRIVER Office Visit [facility] Endocrinology - [place] [address] [place] [address] Annel Rod MD [address] [address] documented as of this encounter Visit Diagnoses Not on filedocumented in this encounter Additional Health Concerns Assessment Noted Time PHQ-9 Depression Total Score: 0 09/08/19 19 1:00 PM CDT documented as of this encounter Care Teams Parts Professional Relationship Specialty Start Date End Date Justen Gale MD #2 [place] [address] PCP - General Family Medicine 10/17/17 documented as of this encounter
--- OUTSIDE RECORDS SUMMARY | 2024-04-26 07:51 | XMS_ITS | Encounter Summary ---
Author Organization [facility] Address [address] [place] [address] Phone Care Team Providers Care Car Head Liner Installer Name Role Phone Justen Gale MD Primary Care Provider [phone] Reason for Visit * Reason Onset Date Comments Medication Refill 07/13/2020 Encounter Details Date Type Department Care Team (Late st Contact Info) Description 07/13/2020 Refill [facility] #2 [place] [address] Justen Gale MD #[address] [address] Medication Refill Social History Tobacco Use Types [...] st Contact Info) Description 05/17/2024 2:45 PM LAUNDRY AIDE Office Visit [facility] - Endocrinology - [place] [address]2 [place] [phone] Annel Rod MD #[address] [address] documented as of this encounter Visit Diagnoses Not on filedocumented in this encounter Additional Health Concerns Assessment Noted Time PHQ-9 Depression Total Score: 0 09/08/19 19 1:00 PM CDT documented as of this encounter Care Teams Car Head Liner Installer Relationship Specialty Start Date End Date Justen Gale MD #[address] [address] PCP - General Family Medicine 10/17/17 documented as of this encounter
--- OUTSIDE RECORDS SUMMARY | 2024-04-26 07:51 | XMS_ITS | Encounter Summary ---
Author Organization [facility] Address [address] [place] [address] Phone Care Team Providers Care Tank Charger Name Role Phone Justen Gale MD Primary Care Provider Reason for Visit * Reason Comments Medication Refill Encounter Details Date Type Department Care Team (Late st Contact Info) Description 05/07/2020 Refill [facility] End[facility]ology - [place] #2 [place] [address] Annel Rod MD #[address] [address] Medication Refill Social History Tobacco [...] Jennifer Wang RN - 05/11/2020 1:23 PM BEHAVIORAL HEALTH ASSOCIATE Medication(s) refused due to duplicate request. Chart reviewed to insure medication was already refilled at pharmacy that is currently requesting refill. VIORAL HEALTH ASSOCIATE documented in this encounter Plan of Treatment Upcoming Encounters Date Type Department Care Team (Late st Contact Info) Description 05/17/2024 2:45 PM BEHAVIORAL HEALTH ASSOCIATE Office Visit [facility] - Endocrinology - [place] #2 [place] [address] Annel Rod MD #[address] [facility] [address] [place] [address] documented as of this encounter Visit Diagnoses Not on filedocumented in this encounter Additional Health Concerns Assessment Noted Time PHQ-9 Depression Total Score: 0 09/08/19 19 1:00 PM CDT documented as of this encounter Care Teams Tank Charger Relationship Specialty Start Date End Date Justen Gale MD #2 [facility] [address] [place] [address] PCP - General Family Medicine 10/17/17 documented as of this encounter
--- OUTSIDE RECORDS SUMMARY | 2024-04-26 07:51 | XMS_ITS | Encounter Summary ---
Author Organization [facility] Address [address] [place] [address] Phone Care Team Providers Care Glass Cut Off Supervisor Name Role Phone Justen Gale MD Primary Care Provider [phone] Reason for Visit * Reason Onset Date Comments Results 02/12/2020 Gastric emptying study at [facility] Encounter Details Date Type Department Care Team (Late st Contact Info) Description 02/12/2020 Telephone [facility]ology - [place] #2 [place] [phone] Nessa Padgett, PAC #2 [place] [address] Results (Gastric emptying study at [facility]) Social History Tobacco Use Types Packs/Day Years [...] PM CST Left 2nd message on machine E ACCURACY SUPERVISOR * Telephone Encounter - Alicia Mccann RN [...] st Contact Info) Description 05/17/2024 2:45 PM PRICE ACCURACY SUPERVISOR Office Visit [facility] - Endocrinology [facility] #[address] [place] [address] Annel Rod MD #[address] [facility] [address] [address] documented as of this encounter Visit Diagnoses Not on filedocumented in this encounter Additional Health Concerns Assessment Noted Time PHQ-9 Depression Total Score: 0 09/08/19 19 1:00 PM CDT documented as of this encounter Care Teams Glass Cut Off Supervisor Relationship Specialty Start Date End Date Justen Gale MD [address] [address] PCP - General Family Medicine 10/17/17 documented as of this encounter
--- OUTSIDE RECORDS SUMMARY | 2024-04-26 07:51 | XMS_ITS | Encounter Summary ---
Author Organization [facility] Address [address] [place] [address] Phone Care Team Providers Care Acquisition Analyst Name Role Phone Justen Gale MD Primary Care Provider [phone] Reason for Referral * Consult, Test & Initiate Treatment (Less Than 4 Weeks) - Closed Specialty Diagnoses / Procedures Referred By Contkristina t Referred To Contact Gastroenterology Diagnoses Gastroparesis Pili Elkins APRN, ASSESSOR #[address] [address] Phone: tel: fax: [facility] - Gastroenterology [facility] #2 [place] [address] Phone: tel: fax: Referral ID Status Reason Start Date Expiration Date Visits Re quested Visits Authorized [id number] Closed 06/05/2020 1 12 Scheduling Instructions Karly [...] to 59.9 in adult (HCC) Thyroid nodule RAL MEDICAL PRACTITIONER Reason for Visit * Reason Comments Bloody Nose Pt had a nosebleed d ue to vomiting on Monday. Patient feels like her UTI is not completely cleared up after antibiotics. When patient eats she gets real nauseaous, when she has BM she gets sick Urinary Frequency Abdominal Pain Encounter Details Date Type Department Care Team (Late st Contact Info) Description 06/05/2020 3:30 PM GENERAL MEDICAL PRACTITIONER Office Visit [facility] - [facility] #2 [place] [address] Pili Elkins APRN, ASSESSOR #[address] [address] Increased urinary frequency (Primary Dx); [...] COVID-19? No / Unsure 2020 11:37 AM GENERAL MEDICAL PRACTITIONER documented as of this encounter Last Filed Vital Signs Vital Sign Reading Time Taken Comments Blood Pressure 136/88 06/05/2020 3:42 PM GENERAL MEDICAL PRACTITIONER Pulse 88 06/05/2020 3:42 PM GENERAL MEDICAL PRACTITIONER Temperature 37 ??C (98.6 ??F) 06/05/2020 3:42 PM GENERAL MEDICAL PRACTITIONER Respiratory Rate 16 06/05/2020 3:42 PM GENERAL MEDICAL PRACTITIONER Oxygen Saturation 97% 06/05/2020 3:42 PM GENERAL MEDICAL PRACTITIONER Inhaled Oxygen Concentration - - Weight 135.9 kg (299 lb 9.6 oz) 06/05/2020 3:42 PM GENERAL MEDICAL PRACTITIONER Height 154.9 cm (5' 1 ) 06/05/2020 3:42 PM GENERAL MEDICAL PRACTITIONER Body Mass Index 56.61 06/05/2020 3:42 PM GENERAL MEDICAL PRACTITIONER documented in this encounter Patient Instructions * Patient Instructions* Candy Castellanos, RMA - 06/05/2020 3:30 PM GENERAL MEDICAL PRACTITIONER Pneumonia is a serious lung infection that [...] Primary Care Physician???s office or your localpharmacy. RAL MEDICAL PRACTITIONER documented in this encounter Progress Notes * Candy Castellanos RMA - 06/05/2020 3:30 PM CST Karly Marques is a 65 y.o. female with current BMI: Body mass index is 56.61 kg/m??. Interventions discussed including: encourage daily physical activity and well- balanced diet. RAL MEDICAL PRACTITIONER * Candy Castellanos RMA - 06/05/2020 3:30 [...] today: BMI, Pneumonia, Mammogram, Pap and Depression RAL MEDICAL PRACTITIONER * Pili Elkins APN, ASSESSOR - 06/05/2020 3:30 PM CST [facility] #2 [facility] [address] Dept: [phone] Dept Loc: [phone] Loc Patient: Karly Marques : 1955 Sex: [...] nursing note reviewed. Exam conducted with a manager rental present. Constitutional: General: She is not in [...] if symptoms worsen or fail to improve. RAL MEDICAL PRACTITIONER documented in this encounter Plan of Treatment Upcoming Encounters Date Type Department Care Team (Late st Contact Info) Description 05/17/2024 2:45 PM GENERAL MEDICAL PRACTITIONER Office Visit [facility] - Endocrinology - [place] #2 [place] [address] Annel Rod MD #2 [facility] [address] [place] [address] Scheduled Orders Name Type Priority Associated Diagnoses [...] AUTOMATED W/O MICRO Routine 06/05/2020 4:40 PM GENERAL MEDICAL PRACTITIONER Increased urinary frequency documented in this encounter Results * POCT UA AUTOMATED W/O MICRO (06/05/2020 4:40 PM GENERAL MEDICAL PRACTITIONER) SPECIFIC GRAVITY 1.020 1.003 - 1.030 URINE PH 5.0 5.0 - 9.0 UR, LEUKOCYTES Negative Negative Emerson/uL UR, NITRITE Negative Negative UR, PROTEIN Negative Negative mg/dL UR, GLUCOSE Normal Normal mg/dL UR, KETONE Negative Negative mg/dL UR, UROBILINOGEN Normal Normal mg/dL UR, BILIRUBIN Negative Negative mg/dL UR. BLOOD Negative Negative URINALYSIS COLOR Darcy URINALYSIS CLARITY Clear Urine 06/05/2020 4:40 PM GENERAL MEDICAL PRACTITIONER Pili Elkins LINE SUPERVISOR, ASSESSOR POINT OF CARE TESTIN G (MANUAL) Final Result documented in this encounter Visit Diagnoses Diagnosis Increased urinary frequency- Primary Urinary frequency Gastroparesis Mild epistaxis documented in this encounter Additional Health Concerns Assessment Noted Time PHQ-9 Depression Total Score: 0 09/08/19 19 1:00 PM CDT documented as of this encounter Care Teams Acquisition Analyst Relationship Specialty Start Date End Date Justen Gale MD #2 [facility] [address] [place] [address] PCP - General Family Medicine 10/17/17 documented as of this encounter
--- OUTSIDE RECORDS SUMMARY | 2024-04-26 07:51 | XMS_ITS | Encounter Summary ---
Author Organization [facility] Address [address] [facility] [place] [address] Phone Care Team Providers Care Director Franchise Sales Name Role Phone Justen Gale MD Primary Care Provider [phone] Reason for Visit * Reason Onset Date Comments Medication Management 05/19/2020 questions about macrobid Encounter Details Date Type Department Care Team (Late st Contact Info) Description 05/19/2020 Nurse Triage [facility] [address] [place] [address] Justen Gale MD #[address] [address] Medication Management (questions about macrobid) [...] and will stop taking macrobid and will belt picker and begin the cipro. INGOT MOLDER * Telephone Encounter - Gail Lucero RN - 05/20/2020 9:08 AM CST lmom INGOT MOLDER * Addendum Note - Justen Gale MD - 05/20/2020 8:12 AM CSTAddended by: JUSTEN GALE on: 05/20/2020 08:12 AM Modules accepted: Orders INGOT MOLDER * Telephone Encounter - Justen Gale MD - 05/20/2020 8:11 AM CST Please call. Stop macrobid. I will call in a different abx. If no better in next 1-2 days , call or make ov. Call sooner if gets worse. INGOT MOLDER * Telephone Encounter - Norma Peterson RN - 05/19/2020 8:45 PM LEAD INGOT MOLDER SITUATION (caller perception/concerns): Lakesha morrows questions about [...] answers question Protocols used: MEDICATION QUESTION CALL-A-AH INGOT MOLDER documented in this encounter Plan of Treatment Upcoming Encounters Date Type Department Care Team (Late st Contact Info) Description 05/17/2024 2:45 PM LEAD INGOT MOLDER Office Visit [facility] - Endocrinology [facility] [place] #2 [place] [address] Annel Rod MD #2 [facility] [address] [place] [address] documented as of this encounter Visit Diagnoses Not on filedocumented in this encounter Additional Health Concerns Assessment Noted Time PHQ-9 Depression Total Score: 0 09/08/19 19 1:00 PM CDT documented as of this encounter Care Teams Director Franchise Sales Relationship Specialty Start Date End Date Justen Gale MD #2 [facility] [address] [place] [address] PCP - General Family Medicine 10/17/17 documented as of this encounter
--- OUTSIDE RECORDS SUMMARY | 2024-04-26 07:51 | XMS_ITS | Encounter Summary ---
Author Organization [facility] Address [address] [place] [address] Phone Care Team Providers Care Non Garment Sewing Machine Operator Name Role Phone Justen Gale MD Primary Care Provider [phone] Reason for Visit * Reason Comments Medication Refill Encounter Details Date Type Department Care Team (Late st Contact Info) Description 05/03/2020 Refill [facility] Endocr[facility]ology - [place] #2 [place] [address] Annel Rod MD #[address] [address] Medication Refill Social History Tobacco [...] - 05/05/2020 4:13 PM CST Rx sent ITY ASSURANCE AUDITOR * Telephone Encounter - Jennifer Wang, RN - 05/05/2020 2:13 PM QUALITY ASSURANCE AUDITOR Refill request received. Order pended. Requested Prescriptions Pending Prescriptions Disp Refills ??? Insulin Lispro, 1 Unit Dial, 100 UNIT/ML Solution Pen-injector [Pharmacy Med Name: INSULIN LISPRO 100U/ML KWIKPEN 3ML] 45 mL 2 Sig: INJECT 26 UNITS THREE TIMES DAILY BEFORE EACH MEAL. MAX OF 120 UNITS PER DAY Next appt: Message left to schedule follow up. ITY ASSURANCE AUDITOR documented in this encounter Plan of Treatment Upcoming Encounters Date Type Department Care Team (Late st Contact Info) Description 05/17/2024 2:45 PM QUALITY ASSURANCE AUDITOR Office Visit [facility] - Endocrinology [facility] #2 [place] [address] Annel Rod MD #2 [facility] [address] [place] [address] documented as of this encounter Visit Diagnoses Not on filedocumented in this encounter Additional Health Concerns Assessment Noted Time PHQ-9 Depression Total Score: 0 09/08/19 19 1:00 PM CDT documented as of this encounter Care Teams Non Garment Sewing Machine Operator Relationship Specialty Start Date End Date Justen Gale MD #2 [facility] [address] [place] [address] PCP - General Family Medicine 10/17/17 documented as of this encounter
--- OUTSIDE RECORDS SUMMARY | 2024-04-26 07:51 | XMS_ITS | Encounter Summary ---
Author Organization [facility] Address [address] [place] [address] Phone Care Team Providers Care Flight Mechanic Name Role Phone Justen Gale MD Primary Care Provider [phone] Encounter Details Date Type Department Care Team (Late st Contact Info) Description 07/17/2020 Telephone [facility]ology - [place] #2 [place] [address] Nessa Padgett, [facility] #2 [place] [address] Social History Tobacco Use Types Packs/Day Years [...] Contact Info) Description 05/17/2024 2:45 PM GLASS CUTTER Office Visit [facility] - Endocrinology - [place] #2 [place] [address] Annel Rod MD #2 [facility] [address] [place] [address] documented as of this encounter Visit Diagnoses Not on filedocumented in this encounter Additional Health Concerns Assessment Noted Time PHQ-9 Depression Total Score: 0 09/08/19 19 1:00 PM CDT documented as of this encounter Care Teams Flight Mechanic Relationship Specialty Start Date End Date Justen Gale MD #2 [facility] [address] [place] [address] PCP - General Family Medicine 10/17/17 documented as of this encounter
--- OUTSIDE RECORDS SUMMARY | 2024-04-26 07:51 | XMS_ITS | Encounter Summary ---
Author Organization [facility] Address [address] [place] [address] Phone Care Team Providers Care National Dedicated Truck Driver Name Role Phone Justen Gale MD Primary Care Provider [phone] Reason for Visit * Reason Onset Date Comments Back Pain 07/09/2020 Encounter Details Date Type Department Care Team (Late st Contact Info) Description 07/09/2020 Nurse Triage [facility] [address] [place] [address] Justen Gale MD #[address] [address] Back Pain Social History Tobacco Use Types [...] COVID-19? No / Unsure 06/29/2020 8:43 AM ADULT LIVE IN CAREGIVER documented as of this encounter Miscellaneous Notes [...] Contact Info) Description 05/17/2024 2:45 PM ADULT LIVE IN CAREGIVER Office Visit [facility] - Endocrinology - [place] #2 [place] [address] Annel Rod MD #2 [facility] [address] [place] [address] documented as of this encounter Visit Diagnoses Not on filedocumented in this encounter Additional Health Concerns Assessment Noted Time PHQ-9 Depression Total Score: 0 09/08/19 19 1:00 PM CDT documented as of this encounter Care Teams National Dedicated Truck Driver Relationship Specialty Start Date End Date Justen Gael MD #2 [facility] [address] [place] [address] PCP - General Family Medicine 10/17/17 documented as of this encounter
--- OUTSIDE RECORDS SUMMARY | 2024-04-26 07:51 | XMS_ITS | Encounter Summary ---
Author Organization [facility] Address [address] [place] [address] Phone Care Team Providers Care Fur Drummer Name Role Phone Justen Gale MD Primary Care Provider [phone] Reason for Referral * Consult, Test & Initiate Treatment (Routine) - Closed Specialty Diagnoses / Procedures Referred By Elyssa benavides Referred To Contact Diagnoses Radiculopathy, lumbosacral region Justen Gale MD #[address] [address] Phone: tel: fax: Referral ID Status Reason Start Date Expiration Date Visits Re quested Visits Authorized [id number] Closed 03/23/2020 1 14 Scheduling Instructions Karly [...] III SHORT PEN) 31G X 8 MM [facility], USE SIX TIMES DAILY DIRECTED, Disp: 100 Pen Needle, Rfl: 11 ? ? LANTUS SOLOSTAR 100 UNIT/ML Solution Pen-injector, INJECT 50 UNITS SUBCUTANEOUSLY EVERY MORNING, Disp: 45 mL, Rfl: 1 ? ? lisinopril (PRINIVIL, ZESTRIL) 20 MG Tablet, TAKE 1 TABLET BY MOUTH DAILY, Disp: 90 Tab, Rfl: 2 ? ? Mis. Devices [facility], Supply and instructions:, Disp: 1 Each, Rfl: [...] to 59.9 in adult (HCC) Thyroid nodule D STRATEGIST Encounter Details Date Type Department Care Team (Late st Contact Info) Description 03/23/2020 Telephone [facility] #[address] [place] [address] Justen Gale MD #[address] [address] Social History Tobacco Use Types Packs/Day Years [...] Pain Specialists for this pt. Pended referral D STRATEGIST documented in this encounter Plan of Treatment Upcoming Encounters Date Type Department Care Team (Late st Contact Info) Description 05/17/2024 2:45 PM BRAND STRATEGIST Office Visit [facility] - Endocrinology - [place] #2 [place] [address] Annel Rod MD #2 [facility] [address] [place] [address] documented as of this encounter Results * [...] as of this encounter Care Teams Fur Drummer Relationship Specialty Start Date End Date Justen Gale MD #2 [facility] [address] [place] [address] PCP - General Family Medicine 10/17/17 documented as of this encounter
--- OUTSIDE RECORDS SUMMARY | 2024-04-26 07:51 | XMS_ITS | Encounter Summary ---
Author Organization [facility] Address [address] [place] [address] Phone Care Team Providers Care Teacher Education Director Name Role Phone Justen Gale MD Primary Care Provider [phone] Reason for Visit * Reason Onset Date Comments Medication Refill 07/13/2020 Encounter Details Date Type Department Care Team (Late st Contact Info) Description 07/13/2020 Refill [facility] #2 [place] [address] Justen Gale MD #[address] [address] Medication Refill Social History Tobacco Use Types [...] COVID-19? No / Unsure 06/29/2020 8:43 AM CHEESE COOKER documented as of this encounter Miscellaneous Notes * Telephone Encounter - Monica Marlysree Leonard RN - 07/13/2020 4:55 PM CDT Medication(s) refilled and signed per [facility] Chronic Medication Refill Standing Order for Pediatricand Adult Patients. Requested Prescriptions Pending Prescriptions Disp Refills ??? lisinopril (PRINIVIL, ZESTRIL) 20 MG Tablet 90 Tablet 1 Sig: Take 1 Tablet by mouth daily. Cardiovascular: FLOYD Inhibitors Passed - 07/13/2020 3:29 PM Passed - Valid encounter within last 12 months Past Office Visits Recent Outpatient Visits 1 month ago Increased urinary frequency [facility] - Pili Mueller APN, DRILLER'S OFFSIDER 4 months ago Urinary frequency [facility] Pili Mueller APN DRILLER'S OFFSIDER 7 months ago Type 2 diabetes mellitus with diabetic polyneuropathy, with long- term current use of insulin (HCC) [facility] - Pili Mueller APN, DRILLER'S OFFSIDER 8 months ago Nausea [facility] - Justen Olmedo MD 11 months ago Nausea [facility] - Justen Olmedo MD Upcoming Appointments Future Appointments In 4 days Nessa aPdgett September, PAC [facility] 2 weeks Annel Rod MD [facility] Medical [facility] Endocrinology - [facility] PALLIATIVE CARE NURSE - Recent and Past Visits Recent Visits Date Type Provider Dept 06/05/20 Office Visit Pili Elkins APN, CNP [facility] 02/17/20 Office Visit Pili Elkins APN, CNP [facility] 12/03/19 Office Visit Pili Elkins APN, CNP [facility] 11/05/19 Telemedicine Justen Gale MD [facility] 07/25/19 Telemedicine Justen Gale MD [facility] 04/15/19 Office Visit Justen Gale MD [facility] [place] Showing recent visits within past 460 [...] review. Refill encounter routed to nurse [facility] [employer] for processing. documented in this encounter Plan of Treatment Upcoming Encounters Date Type Department Care Team (Late st Contact Info) Description 05/17/2024 2:45 PM CHEESE COOKER Office Visit [facility] - Endocrinology - [place] #2 [place] [address] Annel Rod MD #2 [facility] [address] [place] [address] documented as of this encounter Visit Diagnoses Not on filedocumented in this encounter Additional Health Concerns Assessment Noted Time PHQ-9 Depression Total Score: 0 09/08/19 19 1:00 PM CDT documented as of this encounter Care Teams Teacher Education Director Relationship Specialty Start Date End Date Justen Gale MD #2 [facility] [address] [place] [address] PCP - General Family Medicine 10/17/17 documented as of this encounter
--- OUTSIDE RECORDS SUMMARY | 2024-04-26 07:51 | XMS_ITS | Encounter Summary ---
Author Organization [facility] Address [address] [place] [address] Phone Care Team Providers Care Peanut Sorter Name Role Phone Justen Gale MD Primary Care Provider [phone] Reason for Visit * Reason Onset Date Comments Results 02/19/2020 urine Encounter Details Date Type Department Care Team (Late st Contact Info) Description 02/19/2020 Telephone [facility] [address] [place] [address] Justen Gale MD #[address] [address] Results (urine) Social History Tobacco Use Types [...] PM CST Patient notified and verbalized understanding. DITCHER * Telephone Encounter - Anastasia Rodriguez RN [...] st Contact Info) Description 05/17/2024 2:45 PM TILE DITCHER Office Visit [facility] - Endocrinology - [place] #[address] [place] [address] Annel Rod MD #[address] [facility] [address] documented as of this encounter Visit Diagnoses Not on filedocumented in this encounter Additional Health Concerns Assessment Noted Time PHQ-9 Depression Total Score: 0 09/08/19 19 1:00 PM CDT documented as of this encounter Care Teams Peanut Sorter Relationship Specialty Start Date End Date Justen Gale MD #2 [place] [id number] PCP - General Family Medicine 10/17/17 documented as of this encounter
--- OUTSIDE RECORDS SUMMARY | 2024-04-26 07:51 | XMS_ITS | Encounter Summary ---
Author Organization [facility] Address [address] [place] [address] Phone Care Team Providers Care Rn Cardiac Name Role Phone Justen Gale MD Primary Care Provider [phone] Reason for Visit * Reason Onset Date Comments Bloody Nose 2020 Encounter Details Date Type Department Care Team (Late st Contact Info) Description 2020 Nurse Triage [facility] [address] [place] [address] Justen Gale MD #[address] [address] Bloody Nose Social History Tobacco Use Types [...] COVID-19? No / Unsure 2020 11:37 AM SHELL PRESS OPERATOR documented as of this encounter Miscellaneous Notes * Telephone Encounter - Elma Sykes RN - 2020 4:13 PM CST Office visit appointment scheduled L PRESS OPERATOR * Telephone Encounter - Justen Gale MD - 2020 11:54 AM CST yes L PRESS OPERATOR * Telephone Encounter - Amanda Nielsen RN [...] known bleeding disorder (e.g., thrombocytopenia) Protocols used: [id number] L PRESS OPERATOR documented in this encounter Plan of Treatment Upcoming Encounters Date Type Department Care Team (Late st Contact Info) Description 05/17/2024 2:45 PM SHELL PRESS OPERATOR [facility] Visit [facility] #2 [place] [address] Annel Rod MD #2 [facility] [address] [place] [address] documented as of this encounter Visit Diagnoses Not on filedocumented in this encounter Additional Health Concerns Assessment Noted Time PHQ-9 Depression Total Score: 0 09/08/19 19 1:00 PM CDT documented as of this encounter Care Teams Rn Cardiac Relationship Specialty Start Date End Date Justen Gale MD #2 [facility] [address] [place] [address] PCP - General Family Medicine 10/17/17 documented as of this encounter
--- OUTSIDE RECORDS SUMMARY | 2024-04-26 07:51 | XMS_ITS | Encounter Summary ---
Author Organization [facility] [employer] Care Team Providers Care Airfreight Loading Supervisor Name Role Phone Justen Gale MD Primary Care Provider [phone] Encounter Details Date Type Department Care Team [...] Contact Info) Description 05/17/2024 2:45 PM RETAIL AIDE [facility] Visit [facility]ocr[facility] - [place] #[address] [place] [address] Annel Rod MD #[address] [address] documented as of this encounter Visit Diagnoses Not on filedocumented in this encounter Additional Health Concerns Assessment Noted Time PHQ-9 Depression Total Score: 0 09/08/19 19 1:00 PM CDT documented as of this encounter Care Teams Airfreight Loading Supervisor Relationship Specialty Start Date End Date Justen Gale MD #2 [place] [address] PCP - General Family Medicine 10/17/17 documented as of this encounter
--- OUTSIDE RECORDS SUMMARY | 2024-04-26 07:51 | XMS_ITS | Encounter Summary ---
Author Organization [facility] Address [address] [place] [address] Phone Care Team Providers Care Drop Forge Operator Name Role Phone Justen Gale MD Primary Care Provider [phone] Reason for Visit * Reason Comments ED Follow-up ED f/u Encounter Details Date Type Department Care Team (Late st Contact Info) Description 07/20/2020 3:30 PM CDT Office Visit [facility] Medical [facility] - Family Medicine [facility] #2 [place] [address] Pili Elkins, ZAMZAM, COLLECTION COORDINATOR #[address] [address] CRP elevated (Primary Dx); Essential hypertension; Back [...] this encounter Progress Notes * Kerry Selby, [employer] HCM CONSULTANT - 07/20/2020 3:30 PM CDT Karly [...] Reported on 06/05/2020 02/17/20 Pili Elkins APN, COLLECTION COORDINATOR Glucose Blood (ONE TOUCH ULTRA TEST) Strip [...] 07/13/20 Yes Justen Gale MD Misc. [facility] and [facility]: 02/25/19 Yes [...] APN, NETTA - 07/20/2020 3:30 PM CDT [facility] #2 [facility] [address] Dept: [phone] Dept Loc: [phone] Loc Patient: Karly Marques : 1955 Sex: female Subjective Subjective: HPI: Karly Marques presents for ED Follow-up (ED f/u ) Patient presents today for ER follow-up from July 09 at [facility] for back pain and generalized [...] st Contact Info) Description 05/17/2024 2:45 PM PAD HAND Office Visit [facility] - Endocrinology - [place] #2 [place] [address] Annel Rod MD #[address] [address] Scheduled Orders Name Type Priority Associated Diagnoses [...] documented as of this encounter Care Teams Drop Forge Operator Relationship Specialty Start Date End Date Justen Gale MD #[address] [address] PCP - General Family Medicine 10/17/17 documented as of this encounter
--- OUTSIDE RECORDS SUMMARY | 2024-04-26 07:51 | XMS_ITS | Encounter Summary ---
Author Organization [facility] [employer] Care Team Providers Care Cna Pct Name Role Phone Justen Gale MD Primary Care Provider [phone] Encounter Details Date Type Department Care Team [...] COVID-19? No / Unsure 2020 11:37 AM CREDIT VERIFIER documented as of this encounter Plan of Treatment Upcoming Encounters Date Type Department Care Team (Late st Contact Info) Description 05/17/2024 2:45 PM CREDIT VERIFIER [facility] Visit [facility] - [place] #2 [place] [address] Annel Rod MD #[address] [address] documented as of this encounter Visit Diagnoses Not on filedocumented in this encounter Additional Health Concerns Assessment Noted Time PHQ-9 Depression Total Score: 0 09/08/19 19 1:00 PM CDT documented as of this encounter Care Teams Cna Pct Relationship Specialty Start Date End Date Justen Gale MD #2 [place] [address] PCP - General Family Medicine 10/17/17 documented as of this encounter
--- OUTSIDE RECORDS SUMMARY | 2024-04-26 07:51 | XMS_ITS | Encounter Summary ---
Author Organization [facility] [employer] Care Team Providers Care Bed Setter Name Role Phone Justen Gale MD Primary Care Provider [phone] Encounter Details Date Type Department Care Team [...] st Contact Info) Description 05/17/2024 2:45 PM GEAR KEEPER [facility] Visit [facility] - [place] #[address] [place] [address] Annel Rod MD #[address] [address] documented as of this encounter Visit Diagnoses Not on filedocumented in this encounter Additional Health Concerns Assessment Noted Time PHQ-9 Depression Total Score: 0 09/08/19 19 1:00 PM CDT documented as of this encounter Care Teams Bed Setter Relationship Specialty Start Date End Date Justen Gale MD #2 [place] [address] PCP - General Family Medicine 10/17/17 documented as of this encounter
--- OUTSIDE RECORDS SUMMARY | 2024-04-26 07:52 | XMS_ITS | Encounter Summary ---
Author Organization [facility] [employer] Care Team Providers Care Attendance Secretary Name Role Phone Justen Gale MD Primary Care Provider [phone] Encounter Details Date Type Department Care Team [...] st Contact Info) Description 05/17/2024 2:45 PM BABY FORMULA MIXER [facility] Visit [facility] - [place] #[address] [place] [address] Annel Rod MD [address] [address] documented as of this encounter Visit Diagnoses Not on filedocumented in this encounter Additional Health Concerns Assessment Noted Time PHQ-9 Depression Total Score: 0 09/08/19 19 1:00 PM CDT documented as of this encounter Care Teams Attendance Secretary Relationship Specialty Start Date End Date Justen Gale MD #2 [place] [address] PCP - General Family Medicine 10/17/17 documented as of this encounter
--- OUTSIDE RECORDS SUMMARY | 2024-04-26 07:52 | XMS_ITS | Encounter Summary ---
Author Organization [facility] [employer] Care Team Providers Care Flame Cutting Supervisor Name Role Phone Justen Gale MD Primary Care Provider [phone] Encounter Details Date Type Department Care Team [...] st Contact Info) Description 05/17/2024 2:45 PM BUTTON SEWING MACHINE OPERATOR [facility] Visit [facility]ology - [place] #[address] [place] [address] Annel Rod MD #[address] [address] documented as of this encounter Visit Diagnoses Not on filedocumented in this encounter Additional Health Concerns Assessment Noted Time PHQ-9 Depression Total Score: 0 09/08/19 19 1:00 PM CDT documented as of this encounter Care Teams Flame Cutting Supervisor Relationship Specialty Start Date End Date Justen Gale MD #2 [place] [address] PCP - General Family Medicine 10/17/17 documented as of this encounter
--- OUTSIDE RECORDS SUMMARY | 2024-04-26 07:52 | XMS_ITS | Encounter Summary ---
Author Organization [facility] Address [address] [place] [address] Phone Care Team Providers Care Director Of Primary Care Name Role Phone Justen Gale MD Primary Care Provider [phone] David Roberts APRN, COLOR PASTE MIXER Unavailable [phone] Annel Rod MD Unavailable Reason for Visit * Reason Comments Medication Refill Encounter Details Date Type Department Care Team (Late st Contact Info) Description 02/07/2020 Refill [facility] [address] [facility] [place] [address] Justen Gale MD [address] [address] Medication Refill Social History Tobacco Use Types [...] st Contact Info) Description 05/17/2024 2:45 PM OSHA INSPECTOR Office Visit [facility] - Endocrinology - [place] #2 [place] [address] Annel Rod MD #[address] [phone] documented as of this encounter Visit Diagnoses Not on filedocumented in this encounter Additional Health Concerns Assessment Noted Time PHQ-9 Depression Total Score: 0 09/08/19 19 1:00 PM CDT documented as of this encounter Care Teams Director Of Primary Care Relationship Specialty Start Date End Date Justen Gale MD #[address] [address] PCP - General Family Medicine 10/17/17 David Roberts APRN, COLOR PASTE MIXER #2 [place] [address] Nurse Practitioner Advanced Practice Nurse 01/31/22 Annel Rod MD #[address] [place] [address] Consulting Physician Endocrinology 07/01/22 documented as of this encounter
--- OUTSIDE RECORDS SUMMARY | 2024-04-26 07:52 | XMS_ITS | Encounter Summary ---
Author Organization [facility] Address [address] [place] [address] Phone Care Team Providers Care Employee Development Specialist Name Role Phone Justen Gale MD Primary Care Provider [phone] Reason for Visit * Reason Onset Date Comments Results 12/20/2019 Encounter Details Date Type Department Care Team (Late st Contact Info) Description 12/20/2019 Telephone [facility] - [place] #2 [place] [address] Annel Rod MD #[address] [address] Results Social History Tobacco Use [...] Contact Info) Description 05/17/2024 2:45 PM CERTIFIED REHABILITATION COUNSELOR Office Visit [facility] - Endocrinology - [place] #2 [place] [address] Annel Rod MD #2 [facility] [address] [place] [address] documented as of this encounter Visit Diagnoses Not on filedocumented in this encounter Additional Health Concerns Assessment Noted Time PHQ-9 Depression Total Score: 0 09/08/19 19 1:00 PM CDT documented as of this encounter Care Teams Employee Development Specialist Relationship Specialty Start Date End Date Justen Gale MD #2 [facility] [address] [place] [address] PCP - General Family Medicine 10/17/17 documented as of this encounter
--- OUTSIDE RECORDS SUMMARY | 2024-04-26 07:52 | XMS_ITS | Encounter Summary ---
Author Organization [facility] Address [address] [place] [address] Phone Care Team Providers Care Workers Compensation Coordinator Name Role Phone Justen Gale MD Primary Care Provider [phone] Encounter Details Date Type Department Care Team (Late st Contact Info) Description 12/27/2019 Transcribe Orders [facility] [address] [place] [address] Pili Elkins APRN, POTATO PEELER #[address] [address] Obstructive sleep apnea (Primary Dx) [...] st Contact Info) Description 05/17/2024 2:45 PM MASTER GLAZIER Office Visit [facility] - Endocrinology - [place] #2 [place] [address] Annel Rod MD #2 [facility] [address] [place] [address] Scheduled Orders Name Type Priority Associated Diagnoses [...] documented as of this encounter Care Teams Workers Compensation Coordinator Relationship Specialty Start Date End Date Justen Gale MD #2 [facility] [address] [place] [address] PCP - General Family Medicine 10/17/17 documented as of this encounter
--- OUTSIDE RECORDS SUMMARY | 2024-04-26 07:52 | XMS_ITS | Encounter Summary ---
Author Organization [facility] Address [address] [place] [address] Phone Care Team Providers Care Disk Recoater Name Role Phone Justen Gale MD Primary Care Provider Encounter Details Date Type Department Care Team (Late st Contact Info) Description 12/27/2019 Telephone [facility] - [place] #2 [place] [address] Genaro Jensen, DO [address] [address] Social History Tobacco Use Types [...] st Contact Info) Description 05/17/2024 2:45 PM RELATIONS DIRECTOR Office Visit [facility] - Endocrinology - [place] #2 [place] [address] Annel Rod MD #2 [facility] [address] [place] [address] documented as of this encounter Visit Diagnoses Not on filedocumented in this encounter Additional Health Concerns Assessment Noted Time PHQ-9 Depression Total Score: 0 09/08/19 19 1:00 PM CDT documented as of this encounter Care Teams Disk Recoater Relationship Specialty Start Date End Date Justen Gale MD #2 [facility] [address] [place] [address] PCP - General Family Medicine 10/17/17 documented as of this encounter
--- OUTSIDE RECORDS SUMMARY | 2024-04-26 07:52 | XMS_ITS | Encounter Summary ---
Author Organization [facility] [employer] Care Team Providers Care Funeral Home Attendant Name Role Phone Justen Gale MD Primary Care Provider [phone] Encounter Details Date Type Department Care Team [...] st Contact Info) Description 05/17/2024 2:45 PM TWINE REELING MACHINE OPERATOR [facility] - [place] [address] [place] [address] Annel Rod MD [address] [phone] documented as of this encounter Visit Diagnoses Not on filedocumented in this encounter Additional Health Concerns Assessment Noted Time PHQ-9 Depression Total Score: 0 09/08/19 19 1:00 PM CDT documented as of this encounter Care Teams Funeral Home Attendant Relationship Specialty Start Date End Date Justen Gale MD #2 [place] [address] PCP - General Family Medicine 10/17/17 documented as of this encounter
--- OUTSIDE RECORDS SUMMARY | 2024-04-26 07:52 | XMS_ITS | Encounter Summary ---
Author Organization [facility] [employer] Care Team Providers Care Slitter And Rewinder Machine Operator Name Role Phone Justen Gale MD Primary Care Provider [phone] Encounter Details Date Type Department Care Team [...] st Contact Info) Description 05/17/2024 2:45 PM TEACHING YOUNG [facility] Visit [facility] - [place] [address] [place] [address] Annel Rod MD [address] [address] documented as of this encounter Visit Diagnoses Not on filedocumented in this encounter Additional Health Concerns Assessment Noted Time PHQ-9 Depression Total Score: 0 09/08/19 19 1:00 PM CDT documented as of this encounter Care Teams Slitter And Rewinder Machine Operator Relationship Specialty Start Date End Date Justen Gale MD #2 [place] [address] PCP - General Family Medicine 10/17/17 documented as of this encounter
--- OUTSIDE RECORDS SUMMARY | 2024-04-26 07:52 | XMS_ITS | Encounter Summary ---
Author Organization [facility] Address [address] [place] [address] Phone Care Team Providers Care Gravel Wheeler Name Role Phone Justen Gale MD Primary Care Provider [phone] Reason for Referral * Radiology Services (Routine) - Closed Specialty Diagnoses / Procedures Referred By Contkristina t Referred To Contact Radiology Diagnoses Early satiety Procedures NM GASTRIC EMPTYING STUDY Nessa Padgett PAC [address] [place] [address] Phone: tel: fax: Referral ID Status Reason Start Date Expiration Date Visits Re quested Visits Authorized [id number] Closed 12/19/2019 1 1 * Other (Routine) - Closed Specialty Diagnoses / Procedures Referred By Contkristina t Referred To Contact Diagnoses Altered bowel function Procedures GASTRO PROCEDURE Nessa Padgett PAC [address] [place] [address] Phone: tel: fax: [address] [place] [address] Phone: tel: fax: Referral ID Status Reason Start Date Expiration Date Visits Re quested Visits Authorized [id number] Closed 12/19/2019 1 10 * Other (Routine) - Closed Specialty Diagnoses / Procedures Referred By Contac t Referred To Contact Gastroenterology Diagnoses Chronic nausea Oropharyngeal dysphagia Procedures GASTRO PROCEDURE Nessa Padgett PAC [address] [place] [address] Phone: tel: fax: Referral ID Status Reason Start Date Expiration Date Visits Re quested Visits Authorized [id number] Closed 12/19/2019 1 11 Reason for Visit * Reason Comments Nausea New Patient Dysphagia Abdominal Pain * Consult, Test & Initiate Treatment (Less Than 4 Weeks) - Closed Specialty Diagnoses / Procedures Referred By Contac t Referred To Contact Gastroenterology Diagnoses Chronic nausea Pili Elkins APRN, CLINICAL CYTOPATHOLOGIST #[address] [address] Phone: tel: fax: [facility] - Gastroenterology [facility] [address]2 [place] [address] Phone: tel: fax: Referral ID Status Reason Start Date Expiration Date Visits Re quested Visits Authorized [id number] Closed 12/03/2019 1 12 Encounter Details Date Type Department Care Team (Latest Contact Info) Description 12/19/2019 3:00 PM CDT Office Visit [facility] - Gastroenterology [facility] #2 [place] [address] Nessa Padgett PAC #2 [place] [address] Oropharyngeal dysphagia (Primary Dx); Chronic nausea; Generalized [...] water. EGD- 2 years ago maybe 4-6-18 [facility].Colonoscopy- unknown; GENERAL: Denies fever/ chills/ weight [...] usual stool pattern is a 3-5 on Towner scale. At the time she is feeling ill usually will have a 5 on the Towner scale. Denies abdominal pain/ vomiting/constipation/ diarrhea/ mucus [...] DAILY 90 Tab 2 ??? Misc. Devices [facility] [employer] and instructions: 1 Each 0 ??? [...] file Gets together: Not on file Attends gnosticism service: Not on file Active member of [...] st Contact Info) Description 05/17/2024 2:45 PM LOADING MACHINE OPERATOR [facility] Visit [facility] - End[facility] #2 [place] [address] Annel Rod MD #2 [facility] [address] [place] [phone] Scheduled Orders Name Type Priority Associated Diagnoses [...] documented as of this encounter Care Teams Gravel Wheeler Relationship Specialty Start Date End Date Justen Gale MD #2 [facility] [address] [place] [address] PCP - General Family Medicine 10/17/17 documented as of this encounter
--- OUTSIDE RECORDS SUMMARY | 2024-04-26 07:52 | XMS_ITS | Encounter Summary ---
Author Organization [facility] Address [address] [place] [address] Phone Care Team Providers Care Outside Machinist Name Role Phone Justen Gale MD Primary Care Provider [phone] Reason for Visit * Reason Onset Date Comments Results 01/22/2020 Colonoscopy/EGD at [place] Encounter Details Date Type Department Care Team (Late st Contact Info) Description 01/22/2020 Telephone [facility] #2 [place] [address] Genaro Jensen, DO [address] [address] Results (Colonoscopy/EGD at [place]) Social History Tobacco Use Types Packs/Day Years [...] RN - 01/22/2020 11:18 AM CDT Facility: [place] Test: Colonoscopy/EGD Results: biopsies negative Orders: recheck colon in 5-7 years, Flagyl was given at [place] for 10 days, continue pantoprazole Test on: 01/09/20 Placed in paperwork to go to [facility] on: 01/22/20 Left message on machine. Recall placed. Health information updated. documented in this encounter Plan of Treatment Upcoming Encounters Date Type Department Care Team (Late st Contact Info) Description 05/17/2024 2:45 PM CABIN WORKER Office Visit [facility] - Endocrinology [facility] #2 [place] [address] Annel Rod MD #2 [facility] [address] [place] [address] documented as of this encounter Visit Diagnoses Not on filedocumented in this encounter Additional Health Concerns Assessment Noted Time PHQ-9 Depression Total Score: 0 09/08/19 19 1:00 PM CDT documented as of this encounter Care Teams Outside Machinist Relationship Specialty Start Date End Date Justen Gale MD #2 [facility] [address] [place] [address] PCP - General Family Medicine 10/17/17 documented as of this encounter
--- OUTSIDE RECORDS SUMMARY | 2024-04-26 07:52 | XMS_ITS | Encounter Summary ---
Author Organization [facility] Address [address] [place] [address] Phone Care Team Providers Care Bleacher [employer] Name Role Phone Justen Gale MD Primary Care Provider [phone] Reason for Visit * Reason Onset Date Comments Back Pain 12/27/2019 Chest Pain 12/27/2019 Nausea 12/27/2019 Abdominal Pain 12/27/2019 Dizziness 12/27/2019 Fatigue 12/27/2019 Bloated 12/27/2019 Shaking 12/27/2019 Shortness of Breath 12/27/2019 Painful Swallowing 12/27/2019 Encounter Details Date Type Department Care Team (Late st Contact Info) Description 12/27/2019 [facility] [address] [place] [address] Justen Gale MD #[address] [address] Back Pain; Chest Pain; Nausea; Abdominal Pain; [...] her to the nearest ED which is [facility] ED. Verbal report called to Anais LAWLER at [facility] ED per patient's approval. Caller agrees to [...] Contact Info) Description 05/17/2024 2:45 PM AIR BAG BUFFER Office Visit [facility] - [place] #[address] [place] [address] Annel Rod MD [address] [address] documented as of this encounter Visit Diagnoses Not on filedocumented in this encounter Additional Health Concerns Assessment Noted Time PHQ-9 Depression Total Score: 0 09/08/19 19 1:00 PM CDT documented as of this encounter Care Teams Bleacher [employer] Relationship Specialty Start Date End Date Justen Gale MD #[address] [address] PCP - General Family Medicine 10/17/17 documented as of this encounter
--- OUTSIDE RECORDS SUMMARY | 2024-04-26 07:52 | XMS_ITS | Encounter Summary ---
Author Organization [facility] Address [address] [place] [address] Phone Care Team Providers Care Housekeeping Manager Name Role Phone Justen Gale MD Primary Care Provider [phone] Reason for Visit * Reason Onset Date Comments Low Blood Sugar 02/06/2020 Encounter Details Date Type Department Care Team (Late st Contact Info) Description 02/06/2020 Telephone [facility] - [place] #2 [place] [address] Annel Rod MD #[address] [address] Low Blood Sugar Social History [...] Contact Info) Description 05/17/2024 2:45 PM PRODUCTION FLOATER Office Visit [facility] - Endocrinology - [place] #[address] [place] [address] Annel Rod MD #[address] [address] documented as of this encounter Visit Diagnoses Not on filedocumented in this encounter Additional Health Concerns Assessment Noted Time PHQ-9 Depression Total Score: 0 09/08/19 19 1:00 PM CDT documented as of this encounter Care Teams Housekeeping Manager Relationship Specialty Start Date End Date Justen Gale MD #2 [place] [id number] PCP - General Family Medicine 10/17/17 documented as of this encounter
--- OUTSIDE RECORDS SUMMARY | 2024-04-26 07:52 | XMS_ITS | Encounter Summary ---
Author Organization [facility] Address [address] [place] [address] Phone Care Team Providers Care Mechanical Operator Name Role Phone Justen Gale MD Primary Care Provider [phone] Reason for Visit * Reason Onset Date Comments Urinary Frequency 01/24/2020 Encounter Details Date Type Department Care Team (Late st Contact Info) Description 01/24/2020 Nurse Triage [facility] [address] [place] [address] Justen Gale MD #[address] [address] Urinary Frequency Social History Tobacco Use Types [...] we would recommend following the CDC and [facility] department of health guidelines, which include: ?? [...] back. KATIE MCCALL RN Patient Is not hcw/ergonomics consultant. Reason for Disposition ? ? > 2 UTIs in last year Protocols used: URINATION PAIN - FEMALE-A-[place] Advised to use hand oven heater, social distance and wear a face mask. [...] st Contact Info) Description 05/17/2024 2:45 PM HAUNTED HISTORY TOUR GUIDE Office Visit [facility] #2 [place] [address] Annel Rod MD #[address] [facility] [address] [place] [address] documented as of this encounter Visit Diagnoses Not on filedocumented in this encounter Additional Health Concerns Assessment Noted Time PHQ-9 Depression Total Score: 0 09/08/19 19 1:00 PM CDT documented as of this encounter Care Teams Mechanical Operator Relationship Specialty Start Date End Date Justen Gale MD #[address] [facility] [address] [place] [address] PCP - General Family Medicine 10/17/17 documented as of this encounter
--- OUTSIDE RECORDS SUMMARY | 2024-04-26 07:52 | XMS_ITS | Encounter Summary ---
Author Organization [facility] Address [address] [place] [address] Phone Care Team Providers Care Residence Counselor Name Role Phone Justen Gale MD Primary Care Provider [phone] Reason for Visit * Reason Onset Date Comments Cough 01/13/2020 Encounter Details Date Type Department Care Team (Late st Contact Info) Description 01/13/2020 Telephone [facility] #2 [place] [address] Genaro Jensen, DO [address] [address] Cough Social History Tobacco Use [...] st Contact Info) Description 05/17/2024 2:45 PM HEARING AID ASSEMBLY SUPERVISOR Office Visit [facility] - [place] [address] [place] [address] Annel Rod MD #[address] [phone] documented as of this encounter Visit Diagnoses Not on filedocumented in this encounter Additional Health Concerns Assessment Noted Time PHQ-9 Depression Total Score: 0 09/08/19 19 1:00 PM CDT documented as of this encounter Care Teams Residence Counselor Relationship Specialty Start Date End Date Justen Gale MD #2 [place] [id number] PCP - General Family Medicine 10/17/17 documented as of this encounter
--- OUTSIDE RECORDS SUMMARY | 2024-04-26 07:52 | XMS_ITS | Encounter Summary ---
Author Organization [facility] [employer] Care Team Providers Care Construction Driller Name Role Phone Justen Gale MD Primary Care Provider [phone] Encounter Details Date Type Department Care Team [...] st Contact Info) Description 05/17/2024 2:[address]ER ENGINEER Office Visit [facility] - [place] [address] [place] [address] Annel Rod MD #[address] [address] documented as of this encounter Visit Diagnoses Not on filedocumented in this encounter Additional Health Concerns Assessment Noted Time PHQ-9 Depression Total Score: 0 09/08/19 19 1:00 PM CDT documented as of this encounter Care Teams Construction Driller Relationship Specialty Start Date End Date Justen Gale MD #2 [place] [address] PCP - General Family Medicine 10/17/17 documented as of this encounter
--- OUTSIDE RECORDS SUMMARY | 2024-04-26 07:52 | XMS_ITS | Encounter Summary ---
Author Organization [facility] Address [address] [place] [address] Phone Care Team Providers Care Meat Curer Name Role Phone Justen Gale MD Primary Care Provider [phone] Reason for Visit * Reason Onset Date Comments Referral 12/09/2019 Encounter Details Date Type Department Care Team (Late st Contact Info) Description 12/09/2019 Telephone [facility] [address] [place] [address] Justen Gale MD #[address] [address] Referral Social History Tobacco Use Types Packs/Day [...] Contact Info) Description 05/17/2024 2:45 PM GLASS SELECTOR Office Visit [facility] - [place] #2 [place] [address] Annel oRd MD #2 [facility] [address] [place] [address] documented as of this encounter Visit Diagnoses Not on filedocumented in this encounter Additional Health Concerns Assessment Noted Time PHQ-9 Depression Total Score: 0 09/08/19 19 1:00 PM CDT documented as of this encounter Care Teams Meat Curer Relationship Specialty Start Date End Date Justen Gale MD #2 [facility] [address] [place] [address] PCP - General Family Medicine 10/17/17 documented as of this encounter
--- OUTSIDE RECORDS SUMMARY | 2024-04-26 07:52 | XMS_ITS | Encounter Summary ---
Author Organization [facility] Address [address] [place] [address] Phone Care Team Providers Care Bin Filler Name Role Phone Justen Gale MD Primary Care Provider [phone] Encounter Details Date Type Department Care Team (Late st Contact Info) Description 12/19/2019 Telephone [facility] - [place] #2 [place] [address] Genaro Jensen, DO [address] [address] Social History Tobacco Use Types [...] st Contact Info) Description 05/17/2024 2:45 PM LIVESTOCK YARD SUPERVISOR Office Visit [facility] - [place] #2 [place] [address] Annel Rod MD #2 [facility] [address] [place] [address] documented as of this encounter Visit Diagnoses Not on filedocumented in this encounter Additional Health Concerns Assessment Noted Time PHQ-9 Depression Total Score: 0 09/08/19 19 1:00 PM CDT documented as of this encounter Care Teams Bin Filler Relationship Specialty Start Date End Date Justen Gale MD #2 [facility] [address] [place] [address] PCP - General Family Medicine 10/17/17 documented as of this encounter
--- OUTSIDE RECORDS SUMMARY | 2024-04-26 07:52 | XMS_ITS | Encounter Summary ---
Author Organization [facility] Address [address] [place] [address] Phone Care Team Providers Care International Recruiter Name Role Phone Justen Gale MD Primary Care Provider [phone] Reason for Visit * Reason Onset Date Comments COVID-19 01/13/2020 Encounter Details Date Type Department Care Team (Late st Contact Info) Description 01/13/2020 Nurse Triage [facility] [address] [place] [address] Justen Gale MD #[address] [address] COVID-19 Social History Tobacco Use Types Packs/Day [...] 100-120) Protocols used: CORONAVIRUS (COVID-19) DIAGNOSED OR [id number] * Telephone Encounter - Larissa Lechuga RN [...] understanding. Patient stated she will go to [facility] ED. Advised patient to call back with any questions or worsening symptoms. LARISSA LECHUGA RN documented in this encounter Plan of Treatment Upcoming Encounters Date Type Department Care Team (Late st Contact Info) Description 05/17/2024 2:45 PM BOWLING BALL FINISHER Office Visit [facility] - Endocrinology - [place] #2 [place] [address] Annel Rod MD #2 [facility] [address] [place] [address] documented as of this encounter Visit Diagnoses Not on filedocumented in this encounter Additional Health Concerns Assessment Noted Time PHQ-9 Depression Total Score: 0 09/08/19 19 1:00 PM CDT documented as of this encounter Care Teams International Recruiter Relationship Specialty Start Date End Date Justen Gale MD #2 [facility] [address] [place] [address] PCP - General Family Medicine 10/17/17 documented as of this encounter
--- OUTSIDE RECORDS SUMMARY | 2024-04-26 07:52 | XMS_ITS | Encounter Summary ---
Author Organization [facility] Address [address] [place] [address] Phone Care Team Providers Care Market Development Executive Name Role Phone Justen Gale MD Primary Care Provider [phone] Encounter Details Date Type Department Care Team (Late st Contact Info) Description 12/27/2019 Telephone [facility] - [place] #2 [place] [address] Genaro Jensen, DO [address] [address] Social History Tobacco Use Types [...] st Contact Info) Description 05/17/2024 2:45 PM REFINERY PROCESS ENGINEER Office Visit [facility] - Endocrinology - [place] #2 [place] [address] Annel Rod MD #2 [facility] [address] [place] [address] documented as of this encounter Visit Diagnoses Not on filedocumented in this encounter Additional Health Concerns Assessment Noted Time PHQ-9 Depression Total Score: 0 09/08/19 19 1:00 PM CDT documented as of this encounter Care Teams Market Development Executive Relationship Specialty Start Date End Date Justen Gale MD #2 [facility] [address] [place] [address] PCP - General Family Medicine 10/17/17 documented as of this encounter
--- OUTSIDE RECORDS SUMMARY | 2024-04-26 07:53 | XMS_ITS | Encounter Summary ---
Author Organization [facility] [employer] Care Team Providers Care Area Attendant Name Role Phone Justen Gale MD Primary Care Provider [phone] Encounter Details Date Type Department Care Team [...] st Contact Info) Description 05/17/2024 2:45 PM FARM INSTRUCTOR [facility] Visit [facility] - [place] #[address] [place] [address] Annel Rod MD #[address] [address] documented as of this encounter Visit Diagnoses Not on filedocumented in this encounter Additional Health Concerns Assessment Noted Time PHQ-9 Depression Total Score: 0 09/08/19 19 1:00 PM CDT documented as of this encounter Care Teams Area Attendant Relationship Specialty Start Date End Date Justen Gale MD #[address] [place] [address] PCP - General Family Medicine 10/17/17 documented as of this encounter
--- OUTSIDE RECORDS SUMMARY | 2024-04-26 07:53 | XMS_ITS | Encounter Summary ---
Author Organization [facility] Address [address] [facility] [place] [address] Phone Care Team Providers Care Farmworker Bulbs Name Role Phone Justen Gale MD Primary Care Provider [phone] Reason for Visit * Reason Onset Date Comments COVID-19 10/16/2019 Encounter Details Date Type Department Care Team (Late st Contact Info) Description 10/16/2019 [facility] [address] [place] [address] Justen Gale MD #[address] [address] COVID-19 Social History Tobacco Use Types Packs/Day [...] Miscellaneous Notes * Telephone Encounter - Deidra Bartholoemw RN - 10/17/2019 10:45 PM CDT Opened in error documented in this encounter Plan of Treatment Upcoming Encounters Date Type Department Care Team (Late st Contact Info) Description 05/17/2024 2:45 PM ACCOUNTING SPECIALIST Office Visit [facility] - Endocrinology - [place] #2 [place] [address] Annel Rod MD #2 [facility] [address] [place] [address] documented as of this encounter Visit Diagnoses Not on filedocumented in this encounter Additional Health Concerns Assessment Noted Time PHQ-9 Depression Total Score: 0 09/08/19 19 1:00 PM CDT documented as of this encounter Care Teams Farmworker Bulbs Relationship Specialty Start Date End Date Justen Gale MD #2 [facility] [address] [place] [address] PCP - General Family Medicine 10/17/17 documented as of this encounter
--- OUTSIDE RECORDS SUMMARY | 2024-04-26 07:53 | XMS_ITS | Encounter Summary ---
Author Organization [facility] Address [address] [place] [address] Phone Care Team Providers Care Vessel Slag Worker Name Role Phone Justen Gale MD Primary Care Provider [phone] Reason for Referral * Radiology Services (Routine) - Closed Specialty Diagnoses / Procedures Referred By Elyssa benavides Referred To Contact Radiology Diagnoses Type 2 diabetes mellitus with diabetic polyneuropathy, with long-term current use of insulin (HCC) Thyroid nodule Procedures US THYROID/NECK Annel Rod MD #[address] [address] Phone: tel: fax: Referral ID Status Reason Start Date Expiration Date Visits Re quested Visits Authorized [id number] Closed 11/18/2019 1 1 Reason for Visit * Radiology Services (Routine) - Closed Specialty Diagnoses / Procedures Referred By Elyssa benavides Referred To Contact Radiology Diagnoses Type 2 diabetes mellitus with diabetic polyneuropathy, with long-term current use of insulin (HCC) Thyroid nodule Procedures US THYROID/NECK Annel Rod MD #[address] [address] Phone: tel: fax: Referral ID Status Reason Start Date Expiration Date Visits Re quested Visits Authorized [id number] Closed 11/18/2019 1 1 Encounter Details Date Type Department Care Team (Latest Contact Info) Description 12/09/2019 2:07 PM CDT - 12/09/2019 11:59 PM CDT Hospital Encounter [facility] Ultrasound [address] [place] [phone] Annel Rod MD #[address] [phone] Discharge Disposition: Discharged to home or Selfcare [...] st Contact Info) Description 05/17/2024 2:45 PM INFORMATION SYSTEMS SUPERVISOR Office Visit [facility] - Endocrinology - [place] [address] [place] [address] Annel Rod MD #[address] [address] documented as of this encounter Procedures Procedure [...] AM T: ??12/10/2019 10:10 AM Report ID: [id number] Reading Location: [id number] Procedure Note Cleo Garza MD - 12/10/2019 [...] signed by Cleo Garza BG: Report ID: [id number] Reading Location: [id number] IMPRESSION: Unchanged 2.8 cm nodule within the [...] as of this encounter Care Teams Vessel Slag Worker Relationship Specialty Start Date End Date Justen Gale MD #[address] [address] PCP - General Family Medicine 10/17/17 documented as of this encounter
--- OUTSIDE RECORDS SUMMARY | 2024-04-26 07:53 | XMS_ITS | Encounter Summary ---
Author Organization [facility] Address [address] [place] [address] Phone Care Team Providers Care Shade Classifier Name Role Phone Justen Gale MD Primary Care Provider Encounter Details Date Type Department Care Team (Late st Contact Info) Description 11/05/2019 Telephone [facility] #2 [place] [address] Justen Gale MD #[address] [address] Social History Tobacco Use Types Packs/Day Years [...] st Contact Info) Description 05/17/2024 2:45 PM ROUTING EQUIPMENT TENDER Office Visit [facility] #2 [place] [address] Annel Rod MD #2 [facility] [address] [place] [address] documented as of this encounter Visit Diagnoses Not on filedocumented in this encounter Additional Health Concerns Assessment Noted Time PHQ-9 Depression Total Score: 0 09/08/19 19 1:00 PM CDT documented as of this encounter Care Teams Shade Classifier Relationship Specialty Start Date End Date Justen Gale MD #2 [facility] [address] [place] [address] PCP - General Family Medicine 10/17/17 documented as of this encounter
--- OUTSIDE RECORDS SUMMARY | 2024-04-26 07:53 | XMS_ITS | Encounter Summary ---
Author Organization [facility] Address [address] [place] [address] Phone Care Team Providers Care Provider Scribe Name Role Phone Justen Gale MD Primary Care Provider [phone] Reason for Referral * Consult, Test & Initiate Treatment (Less Than 4 Weeks) - Closed Specialty Diagnoses / Procedures Referred By Contkristina t Referred To Contact Gastroenterology Diagnoses Chronic nausea Pili Elkins APRN, OBSTETRICS/GYNECOLOGY NURSE #[address] [address] Phone: tel: fax: [facility] - Gastroenterology [facility] #2 [place] [address] Phone: tel: fax: Referral ID Status Reason Start Date Expiration Date Visits Re quested Visits Authorized [id number] Closed 12/03/2019 1 12 Scheduling Instructions Karly [...] LUL (obstructive sleep apnea) Pili Elkins APRN, OBSTETRICS/GYNECOLOGY NURSE #[address] [address] Phone: tel: fax: [facility] [address] [place] [address] Phone: tel: fax: Referral ID Status Reason Start Date Expiration Date Visits Re quested Visits Authorized [id number] Closed 12/03/2019 1 1 Scheduling Instructions Sleep [...] Disp: 90 Tab, Rfl: 2 Misc. Devices [facility], Supply and instructions:, Disp: 1 Each, Rfl: [...] Description 12/03/2019 11:00 AM CDT Office Visit [facility] - Family [facility] #2 [place] [address] Pili Elkins APRN, NETTA #[address] [address] Type 2 diabetes mellitus with diabetic polyneuropathy, with long-term current use of insulin ([facility]) (Primary Dx); Chronic nausea; Change in skin [...] MOUTH DAILY 09/30/19 Yes Justen Gale MD [facility]. Devices [facility] Supply and instructions: 02/25/19 Justen Gale MD ondansetron (ZOFRAN) 4 MG Tablet TAKE 1 TABLET BY MOUTH EVERY 8 HOURS NEEDED FOR NAUSEA 08/07/19 Yes Justen Gale MD ondansetron (ZOFRAN) 4 MG Tablet Take 1 Tab by mouth every 8 hours as needed for Nausea - 1st line.09/04/19 Justen Gale MD ONETOUCH DELICA LANCETS 33G [facility] 1 Lancet by Does [...] or your localpharmacy. * Pili Elkins APN, OBSTETRICS/GYNECOLOGY NURSE - 12/03/2019 11:00 AM CDT Chief Complaint: [...] reports that she did talk to her surgery nurse about this and he is concerned that she may have gastroparesis due to her type 2 diabetes. Patient states that she was prescribed Zofran in the past and that did help. Patient is interested in seeing injection mold technician. Patient has a previous history of [...] given to the patient. Patient (or patient housing management representative) demonstrates verbal understanding of instructions given. [...] st Contact Info) Description 05/17/2024 2:45 PM BLENDING TECHNICIAN Office Visit [facility] - [facility]ocr[facility] #2 [place] [address] Annel Rod MD #[address] [address] Scheduled Referrals Name Type Priority Associated Diagnoses Order Schedule SLEEP STUDY REFERRAL Outpatient Referral Routine LUL (obstructive sleep apnea) Expected: 06/03/2020, Expires: 2021 GASTROENTEROLOGY REFERRAL Outpatient Referral Less Than 4 weeks Chronic nausea Expected: 12/03/2019, Expires: 03/02/2020 documented as of this encounter Visit Diagnoses Diagnosis Type 2 diabetes mellitus with diabetic polyneuropathy, with long-term current use of insulin ([facility])- Primary Chronic nausea Nausea alone Change in skin mole Benign neoplasm of skin, site unspecified LUL (obstructive sleep apnea) Obstructive sleep apnea (adult) (pediatric) documented in this encounter Additional Health Concerns Assessment Noted Time PHQ-9 Depression Total Score: 0 09/08/19 19 1:00 PM CDT documented as of this encounter Care Teams Provider Scribe Relationship Specialty Start Date End Date Justen Gale MD #2 [facility] [address] [place] [address] PCP - General Family Medicine 10/17/17 documented as of this encounter
--- OUTSIDE RECORDS SUMMARY | 2024-04-26 07:53 | XMS_ITS | Encounter Summary ---
Author Organization [facility] Address [address] [place] [address] Phone Care Team Providers Care Security Guard Dispatcher Name Role Phone Justen Gale MD Primary Care Provider [phone] Reason for Visit * Reason Onset Date Comments Low Blood Sugar 10/26/2019 Encounter Details Date Type Department Care Team (Late st Contact Info) Description 10/26/2019 Telephone [facility] [address] [place] [address] [place] [phone] Annel Rod MD #[address] [address] Low Blood Sugar Social History [...] Contact Info) Description 05/17/2024 2:45 PM HEAVY TRUCK TECHNICIAN Office Visit [facility] - Endocrinology - [place] #2 [place] [address] Annel Rod MD #2 [facility] [address] [place] [address] documented as of this encounter Visit Diagnoses Not on filedocumented in this encounter Additional Health Concerns Assessment Noted Time PHQ-9 Depression Total Score: 0 09/08/19 19 1:00 PM CDT documented as of this encounter Care Teams Security Guard Dispatcher Relationship Specialty Start Date End Date Justen Gale MD #2 [facility] [address] [place] [address] PCP - General Family Medicine 10/17/17 documented as of this encounter
--- OUTSIDE RECORDS SUMMARY | 2024-04-26 07:53 | XMS_ITS | Encounter Summary ---
Author Organization [facility] [employer] Care Team Providers Care Yard Spotter Name Role Phone Justen Gale MD Primary Care Provider [phone] Encounter Details Date Type Department Care Team [...] st Contact Info) Description 05/17/2024 2:45 PM WELDING PROCESS SPECIALIST Office Visit [facility]ology - [place] #2 [place] [address] Annel Rod MD #[address] [facility] [address] [address] documented as of this encounter Visit Diagnoses Not on filedocumented in this encounter Additional Health Concerns Assessment Noted Time PHQ-9 Depression Total Score: 0 09/08/19 19 1:00 PM CDT documented as of this encounter Care Teams Yard Spotter Relationship Specialty Start Date End Date Justen Gale MD #2 [place] [address] PCP - General Family Medicine 10/17/17 documented as of this encounter
--- OUTSIDE RECORDS SUMMARY | 2024-04-26 07:53 | XMS_ITS | Encounter Summary ---
Author Organization [facility] Address [address] [place] [address] Phone Care Team Providers Care Maritime Pilot Name Role Phone Justen Gale MD Primary Care Provider [phone] Reason for Visit * Reason Comments Nausea Encounter Details Date Type Department Care Team (Late st Contact Info) Description 11/05/2019 4:45 PM CDT Telemedicine [facility] - Family [facility] #2 [place] [address] Justen Gale MD #[address] [address] Nausea (Primary Dx) Social History Tobacco Use [...] 64 y.o. female evaluated today for nausea [id number] Feels tired. Fatigue worse at night. At [...] Contact Info) Description 05/17/2024 2:45 PM FIELD PRODUCER Office Visit [facility] - Endocrinology - [place] #2 [place] [address] Annel Rod MD #2 [facility] [address] [place] [address] documented as of this encounter Visit Diagnoses Diagnosis Nausea- Primary Nausea alone documented in this encounter Additional Health Concerns Assessment Noted Time PHQ-9 Depression Total Score: 0 09/08/19 19 1:00 PM CDT documented as of this encounter Care Teams Maritime Pilot Relationship Specialty Start Date End Date Justen Gale MD #2 [facility] [address] [place] [address] PCP - General Family Medicine 10/17/17 documented as of this encounter
--- OUTSIDE RECORDS SUMMARY | 2024-04-26 07:53 | XMS_ITS | Encounter Summary ---
Author Organization [facility] Address [address] [place] [address] Phone Care Team Providers Care Loading Unit Operator Name Role Phone Justen Gale MD Primary Care Provider [phone] Reason for Visit * Reason Onset Date Comments Low Blood Sugar 10/30/2019 Encounter Details Date Type Department Care Team (Late st Contact Info) Description 10/30/2019 Nurse Triage [facility] [address] [place], [place] [phone] Justen Gale MD #[address] [address] Low Blood Sugar Social History Tobacco Use [...] on ov. Patient does not have a [employer] account to do a video visit. Screening [...] patient is to discuss with provider and callback by nurse. Please advise. BACKGROUND: 10/23/2019 ASSESSMENT: [...] st Contact Info) Description 05/17/2024 2:45 PM INVOICE CHECKER Office Visit [facility] - Endocrinology - [place] #[address] [place] [address] Annel Rod MD #[address] [phone] documented as of this encounter Visit Diagnoses Not on filedocumented in this encounter Additional Health Concerns Assessment Noted Time PHQ-9 Depression Total Score: 0 09/08/19 19 1:00 PM CDT documented as of this encounter Care Teams Loading Unit Operator Relationship Specialty Start Date End Date Justen Gale MD #[address] [address] PCP - General Family Medicine 10/17/17 documented as of this encounter
--- OUTSIDE RECORDS SUMMARY | 2024-04-26 07:53 | XMS_ITS | Encounter Summary ---
Author Organization [facility] Address [address] [place] [address] Phone Care Team Providers Care Strike Off Machine Operator Name Role Phone Justen Gale MD Primary Care Provider [phone] Reason for Visit * Reason Onset Date Comments Erroneous Encounter - Disregard 10/30/2019 Encounter Details Date Type Department Care Team (Late st Contact Info) Description 10/30/2019 Telephone [facility] [address] [place], [place] [phone] Justen Gale MD #[address] [address] Erroneous Encounter - Disregard Social History Tobacco [...] Contact Info) Description 05/17/2024 2:45 PM METAL OR WOOD BLOCKER Office Visit [facility] - Endocrinology - [place] #2 [place] [address] Annel Rod MD #2 [facility] [address] [place] [address] documented as of this encounter Visit Diagnoses Not on filedocumented in this encounter Additional Health Concerns Assessment Noted Time PHQ-9 Depression Total Score: 0 09/08/19 19 1:00 PM CDT documented as of this encounter Care Teams Strike Off Machine Operator Relationship Specialty Start Date End Date Justen Gale MD #2 [facility] [address] [place] [address] PCP - General Family Medicine 10/17/17 documented as of this encounter
--- OUTSIDE RECORDS SUMMARY | 2024-04-26 07:53 | XMS_ITS | Encounter Summary ---
Author Organization [facility] Address [address] [place] [address] Phone Care Team Providers Care Student Assistance Counselor Name Role Phone Justen Gale MD Primary Care Provider [phone] Reason for Visit * Reason Comments Medication Refill Encounter Details Date Type Department Care Team (Late st Contact Info) Description 09/11/2019 Refill [facility] - [place] #2 [place] [address] Annel Rod MD #[address] [address] Medication Refill Social History Tobacco [...] st Contact Info) Description 05/17/2024 2:45 PM ORAL HEALTH THERAPIST Office Visit [facility] - Endocrinology [facility] #2 [place] [address] Annel Rod MD #2 [facility] [address] [place] [address] documented as of this encounter Visit Diagnoses Not on filedocumented in this encounter Additional Health Concerns Infection Onset Date Last Indicated Resolved Time COVID - 19 09/05/2019 09/06/2019 10/03/2019 12:1 7 AM CDT Assessment Noted Time PHQ-9 Depression Total Score: 0 09/08/19 19 1:00 PM CDT documented as of this encounter Care Teams Student Assistance Counselor Relationship Specialty Start Date End Date Justen Gale MD #2 [facility] [address] [place] [address] PCP - General Family Medicine 10/17/17 documented as of this encounter
--- OUTSIDE RECORDS SUMMARY | 2024-04-26 07:53 | XMS_ITS | Encounter Summary ---
Author Organization [facility] Address [address] [place] [address] Phone Care Team Providers Care Veterinary Laboratory Technician Name Role Phone Justen Gale MD Primary Care Provider [phone] Encounter Details Date Type Department Care Team (Late st Contact Info) Description 09/05/2019 [facility]phone [facility] [address] [place] [address] Yajaira Allen, BEAD MAKER, NON DESTRUCTIVE TESTING ENGINEER [address] [place] [address] Social History Tobacco Use Types Packs/Day Years [...] st Contact Info) Description 05/17/2024 2:45 PM TENNIS CENTRE MANAGER Office Visit [facility] - Endocrinology - [place] #2 [place] [address] Annel Rod MD #[address] [address] documented as of this encounter Visit Diagnoses Not on filedocumented in this encounter Additional Health Concerns Infection Onset Date Last Indicated Resolved Time COVID - 19 09/05/2019 09/06/2019 10/03/2019 12:1 7 AM CDT Assessment Noted Time PHQ-9 Depression Total Score: 0 09/08/19 1:00 PM CDT documented as of this encounter Care Teams Veterinary Laboratory Technician Relationship Specialty Start Date End Date Justen Gale MD #[address] [address] PCP - General Family Medicine 10/17/17 documented as of this encounter
--- OUTSIDE RECORDS SUMMARY | 2024-04-26 07:53 | XMS_ITS | Encounter Summary ---
Author Organization [facility] [employer] Care Team Providers Care Hydraulic Engineer Name Role Phone Justen Gale MD Primary Care Provider [phone] Encounter Details Date Type Department Care Team [...] st Contact Info) Description 05/17/2024 2:45 PM CIGARETTE MACHINE OPERATOR Office Visit [facility] Medical Group - Endocrinology - [place] #[address] [place] [address] Annel Rod MD #[address] [phone] documented as of this encounter Visit Diagnoses Not on filedocumented in this encounter Additional Health Concerns Assessment Noted Time PHQ-9 Depression Total Score: 0 09/08/19 19 1:00 PM CDT documented as of this encounter Care Teams Hydraulic Engineer Relationship Specialty Start Date End Date Justen Gale MD #2 [place] [address] PCP - General Family Medicine 10/17/17 documented as of this encounter
--- OUTSIDE RECORDS SUMMARY | 2024-04-26 07:53 | XMS_ITS | Encounter Summary ---
Author Organization [facility] Address [address] [place] [address] Phone Care Team Providers Care Phlebotomy Specialist Name Role Phone Justen Gale MD Primary Care Provider [phone] Reason for Visit * Reason Onset Date Comments Care Management 10/28/2019 Encounter Details Date Type Department Care Team (Late st Contact Info) Description 10/28/2019 Telephone [facility] - [place] #2 [place] [address] Annel Rod MD #[address] [address] Care Management Social History Tobacco [...] st Contact Info) Description 05/17/2024 2:45 PM ADMITTING CLERK Office Visit [facility] - Endocrinology - [place] #2 [place] [address] Annel Rod MD #2 [facility] [address] [place] [address] documented as of this encounter Visit Diagnoses Not on filedocumented in this encounter Additional Health Concerns Assessment Noted Time PHQ-9 Depression Total Score: 0 09/08/19 19 1:00 PM CDT documented as of this encounter Care Teams Phlebotomy Specialist Relationship Specialty Start Date End Date Justen Gale MD #2 [facility] [address] [place] [address] PCP - General Family Medicine 10/17/17 documented as of this encounter
--- OUTSIDE RECORDS SUMMARY | 2024-04-26 07:53 | XMS_ITS | Encounter Summary ---
Author Organization [facility] Address [address] 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 Khris Arthur at [facility][1] or other specialist in patient's insurance network [...] (Late st Contact Info) Description 10/16/2019 Telephone [facility] [address] [address] Justen Gale MD #2 [facility] [address] [place] [address] Referral Social History Tobacco Use Types Packs/Day [...] 12:46 PM CDT Ama, from oncology at [facility][1], calling and stating that patient needs a referral to see Dr. Khris Arthur on 10/21. Would provider be willing to sign referral? Order pended for your review. documented in this encounter Plan of Treatment Upcoming Encounters Date Type Department Care Team (Late st Contact Info) Description 05/17/2024 2:45 PM GUT DROPPER Office Visit [facility] - Endocrinology - [place] #2 [place] [address] Annel Rod MD #2 [facility] [address] [place] [address] Scheduled Referrals Name Type Priority Associated Diagnoses [...] as of this encounter Care Teams Retail Greeting Card Merchandiser Relationship Specialty Start Date End Date Justen Gale MD #2 [place] [id number] PCP - General Family Medicine 10/17/17 documented as of this encounter
--- OUTSIDE RECORDS SUMMARY | 2024-04-26 07:53 | XMS_ITS | Encounter Summary ---
Author Organization [facility] Address [address] [facility] [place] [address] Phone Care Team Providers Care Cinder Pit Crane Operator Name Role Phone Justen Gale MD Primary Care Provider [phone] Reason for Visit * Reason Onset Date Comments COVID-19 10/16/2019 daughter is posi tive for covid19/ no syptoms Encounter Details Date Type Department Care Team (Late Contact Info) Description 10/16/2019 Telephone [facility] [address] [place] [address] Justen Gale MD #[address] [address] COVID-19 (daughter is positive for covid19/ no [...] Educate patient using CDC care guidelines. Discussed [facility] testing site options and gave her the information of the mobile testing site tomorrow at [facility] Is patient is a healthcare worker or herbarium curator (Previous Answer - )? No At this time, based on our discussion the [facility] department does not recommend that you have any further testing. We would recommend following the CDC and [facility] department of health guidelines,which include: ?? practicing [...] st Contact Info) Description 05/17/2024 2:45 PM CAPITAL MARKETS SPECIALIST Office Visit [facility] - Endocrinology - [place] #[address] [place] [address] Annel Rod MD #[address] [address] [address] documented as of this encounter Visit Diagnoses Not on filedocumented in this encounter Additional Health Concerns Assessment Noted Time PHQ-9 Depression Total Score: 0 09/08/19 19 1:00 PM CDT documented as of this encounter Care Teams Cinder Pit Crane Operator Relationship Specialty Start Date End Date Justen Gale MD #[address] [address] PCP - General Family Medicine 10/17/17 documented as of this encounter
--- OUTSIDE RECORDS SUMMARY | 2024-04-26 07:53 | XMS_ITS | Encounter Summary ---
Author Organization [facility] Address [address] [place] [address] Phone Care Team Providers Care Roustabout Head Name Role Phone Justen Gale MD Primary Care Provider [phone] Reason for Visit * Reason Onset Date Comments Form Completion 12/03/2019 Encounter Details Date Type Department Care Team (Late st Contact Info) Description 12/03/2019 Telephone [facility] #2 [place] [address] Justen Gale MD #[address] [address] Form Completion Social History Tobacco Use Types [...] and signed by Pili Elkins, mailed to [facility]. documented in this encounter Plan of Treatment Upcoming Encounters Date Type Department Care Team (Late st Contact Info) Description 05/17/2024 2:45 PM SHINGLE WEAVER Office Visit [facility] - Endocrinology - [place] #2 [place] [address] Annel Rod MD #2 [facility] [address] [place] [address] documented as of this encounter Visit Diagnoses Not on filedocumented in this encounter Additional Health Concerns Assessment Noted Time PHQ-9 Depression Total Score: 0 09/08/19 19 1:00 PM CDT documented as of this encounter Care Teams Roustabout Head Relationship Specialty Start Date End Date Justen Gale MD #2 [facility] [address] [place] [address] PCP - General Family Medicine 10/17/17 documented as of this encounter
--- OUTSIDE RECORDS SUMMARY | 2024-04-26 07:53 | XMS_ITS | Encounter Summary ---
Author Organization [facility] [employer] Care Team Providers Care Thread Spooler Name Role Phone Justen Gale MD Primary Care Provider [phone] Encounter Details Date Type Department Care Team [...] st Contact Info) Description 05/17/2024 2:45 PM MOBILITY ARCHITECT MANAGER Office Visit [facility] - Endocrinology - [place] [address] [place] [phone] Annel Rod MD #[address] [facility] [address] [phone] documented as of this encounter Visit Diagnoses Not on filedocumented in this encounter Additional Health Concerns Assessment Noted Time PHQ-9 Depression Total Score: 0 09/08/19 19 1:00 PM CDT documented as of this encounter Care Teams Thread Spooler Relationship Specialty Start Date End Date Justen Gale MD #2 [place] [address] PCP - General Family Medicine 10/17/17 documented as of this encounter
--- OUTSIDE RECORDS SUMMARY | 2024-04-26 07:53 | XMS_ITS | Encounter Summary ---
Author Organization [facility] Address [address] [place] [address] Phone Care Team Providers Care Drill Sharpener Name Role Phone Justen Gale MD Primary Care Provider [phone] Reason for Referral * Consult, Test & Initiate Treatment (Less Than 1 Week) - Closed Specialty Diagnoses / Procedures Referred By Contac t Referred To Contact Diagnoses Restless leg syndrome Justen Gale MD #[address] [address] Phone: tel: fax: Kaylie Castro MD Phone: tel: fax: Referral ID Status Reason Start Date Expiration Date Visits Re quested Visits Authorized [id number] Closed 10/11/2019 1 11 Scheduling Instructions Karly is being referred to Dr. Kaylie Castro at [facility] or other specialist in patient's insurance [...] (BMI) of 50.0 to 59.9 in adult ([facility]) Thyroid nodule Reason for Visit * Reason Onset Date Comments Referral 10/11/2019 Encounter Details Date Type Department Care Team (Late st Contact Info) Description 10/11/2019 Telephone [facility] [address] [place] [address] Justen Gale MD #2 [facility] [address] [place] [address] Referral Social History Tobacco Use Types Packs/Day [...] Kaila, from Dr. Kaylie Castro's office at [facility], calling and stating that patient need a referral for her appointment on 10/21. Would provider be willing to sign referral? Order pended for your review. documented in this encounter Plan of Treatment Upcoming Encounters Date Type Department Care Team (Late st Contact Info) Description 05/17/2024 2:45 PM REPLENISHMENT ANALYST Office Visit [facility] - Endocrinology - [place] #2 [place] [address] Annel Rod MD #2 [facility] [address] [place] [address] Scheduled Referrals Name Type Priority Associated Diagnoses [...] documented as of this encounter Care Teams Drill Sharpener Relationship Specialty Start Date End Date Justen Gale MD #2 [place] [id number] PCP - General Family Medicine 10/17/17 documented as of this encounter
--- OUTSIDE RECORDS SUMMARY | 2024-04-26 07:53 | XMS_ITS | Encounter Summary ---
Author Organization [facility] Address [address] [place] [address] Phone Care Team Providers Care Gage Designer Name Role Phone Justen Gale MD Primary Care Provider [phone] Reason for Referral * Radiology Services (Routine) - Closed Specialty Diagnoses / Procedures Referred By Elyssa benavides Referred To Contact Radiology Diagnoses Type 2 diabetes mellitus with diabetic polyneuropathy, with long-term current use of insulin (HCC) Thyroid nodule Procedures US THYROID/NECK Annel Rod MD #[address] [facility] [address] [place] [address] Phone: tel: fax: Referral ID Status Reason Start Date Expiration Date Visits Re quested Visits Authorized [id number] Closed 11/18/2019 1 1 Reason for Visit * Reason Comments Diabetes Mellitus Follow up * Consult, Test & Initiate Treatment (Routine) - Canceled Specialty Diagnoses / Procedures Referred By Elyssa benavides Referred To Contact Endocrinology Diagnoses Type 2 diabetes mellitus with diabetic polyneuropathy, with long-term current use of insulin (HCC) Justen Gale MD #[address] [facility] [address] [place] [address] Phone: tel: fax: Annel Rod MD #[address] [address] Phone: tel: fax: Referral ID Status Reason Start Date Expiration Date V isits Requested Visits Authorized [id number] Canceled 07/17/2019 1 11 Encounter Details Date Type Department Care Team (Late st Contact Info) Description 11/18/2019 2:00 PM CDT [facility] Visit [facility] [place] [facility] [place] [address] Annel Rod MD #[address] [address] Type 2 diabetes mellitus with diabetic polyneuropathy, with long-term current use of insulin ([facility]) (Primary Dx); Thyroid nodule; Class 3 severe [...] severe low blood sugar events requiring third alliance party intervention. Review of her capillary blood glucose [...] Contact Info) Description 05/17/2024 2:45 PM NURSING HOME AIDE Office Visit [facility] [place] [facility] [place] [address] Annel Rod MD #[address] [address] [address] [phone] Scheduled Orders Name Type Priority Associated Diagnoses [...] AM T: ??12/10/2019 10:10 AM Report ID: [id number] Reading Location: ??[id number] Procedure Note Cleo Garza MD - 12/10/2019 [...] by Cleo Garza BG: BG Report ID: [id number] Reading Location: [place] [address] IMPRESSION: Unchanged 2.8 cm nodule within the inferior right thyroid lobe. Interval decreased size of a now 1.3 cm nodule within the inferior left thyroid lobe, previously 2.1 cm. Additional findings as above us Annel Rod MD [facility] US ORDERABLES Final [...] documented as of this encounter Care Teams Gage Designer Relationship Specialty Start Date End Date Justen Gale MD #[address] [address] PCP - General Family Medicine 10/17/17 documented as of this encounter
--- OUTSIDE RECORDS SUMMARY | 2024-04-26 07:53 | XMS_ITS | Encounter Summary ---
Author Organization [facility] Address [address] [place] [address] Phone Care Team Providers Care Sample Tester Grinder Name Role Phone Justen Gale MD Primary Care Provider Reason for Visit * Reason Comments Medication Refill Encounter Details Date Type Department Care Team (Late st Contact Info) Description 09/29/2019 Refill [facility] [address] [place], [place] [id number] Justen Gale MD #[address] [address] Medication Refill Social History Tobacco Use Types [...] st Contact Info) Description 05/17/2024 2:45 PM ANTIQUE FURNITURE RESTORER Office Visit [facility] - Endocrinology - [place] #2 [place] [address] Annel Rod MD #2 [facility] [address] [place] [address] documented as of this encounter Visit Diagnoses Not on filedocumented in this encounter Additional Health Concerns Infection Onset Date Last Indicated Resolved Time COVID - 19 09/05/2019 09/06/2019 10/03/2019 12:1 7 AM CDT Assessment Noted Time PHQ-9 Depression Total Score: 0 09/08/19 19 1:00 PM CDT documented as of this encounter Care Teams Sample Tester Grinder Relationship Specialty Start Date End Date Justen Gale MD #2 [facility] [address] [place] [address] PCP - General Family Medicine 10/17/17 documented as of this encounter
--- OUTSIDE RECORDS SUMMARY | 2024-04-26 07:54 | XMS_ITS | Encounter Summary ---
Author Organization [facility] Address [address] [place] [address] Phone Care Team Providers Care Certified Novell Engineer Name Role Phone Justen Gale MD Primary Care Provider Encounter Details Date Type Department Care Team (Late st Contact Info) Description 09/04/2019 Telephone [facility] #2 [place] [address] Justen Gale MD #[address] [address] Social History Tobacco Use Types Packs/Day Years [...] Contact Info) Description 05/17/2024 2:45 PM ACID DIPPER Office Visit [facility] - Endocrinology - [place] #2 [place] [address] Annel Rod MD #2 [facility] [address] [place] [address] documented as of this encounter Visit Diagnoses Not on filedocumented in this encounter Additional Health Concerns Assessment Noted Time PHQ-9 Depression Total Score: 0 09/08/19 19 1:00 PM CDT documented as of this encounter Care Teams Certified Novell Engineer Relationship Specialty Start Date End Date Justen Gale MD #2 [facility] [address] [place] [address] PCP - General Family Medicine 10/17/17 documented as of this encounter
--- OUTSIDE RECORDS SUMMARY | 2024-04-26 07:54 | XMS_ITS | Encounter Summary ---
Author Organization [facility] Address [address] [place] [address] Phone Care Team Providers Care Auditing Specialist Name Role Phone Justen Gale MD Primary Care Provider [phone] Reason for Visit * Reason Onset Date Comments Nausea 09/02/2019 Constipation 09/02/2019 Encounter Details Date Type Department Care Team (Late st Contact Info) Description 09/02/2019 Telephone [facility] [place] #2 [place] [address] Justen Gale MD #[address] [address] Nausea; Constipation Social History Tobacco Use Types [...] st Contact Info) Description 05/17/2024 2:45 PM ECONOMIC HISTORIAN Office Visit [facility] - Endocrinology - [place] #2 [place] [address] Annel Rod MD #2 [facility] [address] [place] [address] documented as of this encounter Visit Diagnoses Not on filedocumented in this encounter Additional Health Concerns Assessment Noted Time PHQ-9 Depression Total Score: 0 09/08/19 19 1:00 PM CDT documented as of this encounter Care Teams Auditing Specialist Relationship Specialty Start Date End Date Justen Gale MD #2 [facility] [address] [place] [address] PCP - General Family Medicine 10/17/17 documented as of this encounter
--- OUTSIDE RECORDS SUMMARY | 2024-04-26 07:54 | XMS_ITS | Encounter Summary ---
Author Organization [facility] Address [address] [place] [address] Phone Care Team Providers Care Brush Hand Name Role Phone Justen Gale MD Primary Care Provider Encounter Details Date Type Department Care Team (Late st Contact Info) Description 07/25/2019 Telephone [facility] #2 [place] [address] Justen Gale MD #[address] [address] Social History Tobacco Use Types Packs/Day Years [...] Contact Info) Description 05/17/2024 2:45 PM EMPLOYEE RELATIONS SPECIALIST Office Visit [facility] - Endocrinology [facility] #2 [place] [address] Annel Rod MD #2 [facility] [address] [place] [address] documented as of this encounter Visit Diagnoses Not on filedocumented in this encounter Additional Health Concerns Assessment Noted Time PHQ-9 Depression Total Score: 0 09/08/19 19 1:00 PM CDT documented as of this encounter Care Teams Brush Hand Relationship Specialty Start Date End Date Justen Gale MD #2 [facility] [address] [place] [address] PCP - General Family Medicine 10/17/17 documented as of this encounter
--- OUTSIDE RECORDS SUMMARY | 2024-04-26 07:54 | XMS_ITS | Encounter Summary ---
Author Organization [facility] [employer] Care Team Providers Care Manager Drive Name Role Phone Justen Gale MD Primary Care Provider [phone] Encounter Details Date Type Department Care Team [...] st Contact Info) Description 05/17/2024 2:45 PM BANQUET LINE COOK Office Visit [facility] Medical Group - Endocrinology - [place] #[address] [place] [address] Annel Rod MD #[address] [facility] [address] [address] documented as of this encounter Visit Diagnoses Not on filedocumented in this encounter Additional Health Concerns Assessment Noted Time PHQ-9 Depression Total Score: 0 09/08/19 19 1:00 PM CDT documented as of this encounter Care Teams Manager Drive Relationship Specialty Start Date End Date Justen Gale MD #2 [place] [id number] PCP - General Family Medicine 10/17/17 documented as of this encounter
--- OUTSIDE RECORDS SUMMARY | 2024-04-26 07:54 | XMS_ITS | Encounter Summary ---
Author Organization [facility] Address [address] [place] [address] Phone Care Team Providers Care Jigsawyer Name Role Phone Justen Gale MD Primary Care Provider [phone] Reason for Visit * Reason Onset Date Comments Medication Management 04/23/2019 Insulin Pe n Needle (PEN NEEDLES 31GX5/16 ) 31G X 8 MM Misc Encounter Details Date Type Department Care Team (Late st Contact Info) Description 04/23/2019 Nurse Triage [facility] [address] [place] [address] [place] [address] Justen Gale MD #[address] [address] Medication Management (Insulin Pen Needle (PEN NEEDLES [...] Norma Peterson RN - 04/23/2019 8:18 PM BUSINESS AND SERVICES INSTRUCTOR Reason for Disposition ??? Caller has URGENT medication question about med that PCP prescribed and triager unable to answer question Protocols used: MEDICATION QUESTION CALL-A-AH NESS AND SERVICES INSTRUCTOR * Telephone Encounter - Norma Peterson RN - 04/23/2019 8:02 PM BUSINESS AND SERVICES INSTRUCTOR SITUATION (caller perception/concerns): medication management BACKGROUND: Caller requests:needs refill of insulin pen needles Last office visit: 04/15/19 Ordering provider: Dr Gale Name of medication: pen needles Reason prescribed: Diabetes Last refill: 10/27/18 Amount of pills/capsules/ml remaining: zero Refills remaining: zero Allergies reviewed: yes Preferred pharmacy: [facility] ASSESSMENT: New or worsening symptoms: no RECOMMENDATION: RN reviewed EMR and found an order with 3 refills still available from 10/27/18 for use up to 6 times daily. RN phoned [facility] and spoke with Saundra [facility], who stated this order was found and she is filing the refill now: Insulin Pen Needle (PEN NEEDLES 31GX5/16 ) 31G X 8 MM Misc 300 Each 3 10/27/2018 Sig: Use 6 times ??daily E11.9 Sent to pharmacy as: Pen [place] 5/16 31G X 8 MM Class: E Prescribe Medication order read verbatim to Saundra jimenez at [facility]. TORB. Caller notified medication order has been sent to preferred pharmacy. Caller verbalized understanding of information given and denies further questions. Teach-back method utilized. The Provider extension service agent (POC) will NOT be called for chronic medication refills between the hours of 2200 and 0830 daily or during office hours. EXCEPTION: If the refill is deemed to be emergent through nursing judgment, the POC may be contacted at any time. NESS AND SERVICES INSTRUCTOR documented in this encounter Plan of Treatment Upcoming Encounters Date Type Department Care Team (Late st Contact Info) Description 05/17/2024 2:45 PM BUSINESS AND SERVICES INSTRUCTOR Office Visit [facility] - Endocrinology - [place] #[address] [place] [address] Annel Rod MD #[address] [facility] [address] [place] [address] documented as of this encounter Visit Diagnoses Not on filedocumented in this encounter Additional Health Concerns Assessment Noted Time PHQ-9 Depression Total Score: 0 09/08/19 19 1:00 PM CDT documented as of this encounter Care Teams Jigsawyer Relationship Specialty Start Date End Date Justen Gale MD #2 [facility] [address] [place] [address] PCP - General Family Medicine 10/17/17 documented as of this encounter
--- OUTSIDE RECORDS SUMMARY | 2024-04-26 07:54 | XMS_ITS | Encounter Summary ---
Author Organization [facility] [employer] Care Team Providers Care Valet Parking Attendant Name Role Phone Justen Gale MD Primary Care Provider [phone] Encounter Details Date Type Department Care Team [...] st Contact Info) Description 05/17/2024 2:45 PM ADVANCED DEVELOPER Office Visit [facility] - Endocrinology - [place] #2 [place] [address] Annel Rod MD #2 [place] [address] [address] documented as of this encounter Visit Diagnoses Not on filedocumented in this encounter Additional Health Concerns Assessment Noted Time PHQ-9 Depression Total Score: 0 09/08/19 19 1:00 PM CDT documented as of this encounter Care Teams Valet Parking Attendant Relationship Specialty Start Date End Date Justen Gale MD #2 [place] [address] PCP - General Family Medicine 10/17/17 documented as of this encounter
--- OUTSIDE RECORDS SUMMARY | 2024-04-26 07:54 | XMS_ITS | Encounter Summary ---
Author Organization [facility] Address [address] [place] [address] Phone Care Team Providers Care Flag Maker Name Role Phone Justen Gale MD Primary Care Provider [phone] Reason for Visit * Reason Comments Diabetes Mellitus Encounter Details Date Type Department Care Team (Late st Contact Info) Description 08/13/2019 2:15 PM CDT Telemedicine [facility] - Endocrinology - [place] #2 [place] [address] Annel Rod MD #[address] [address] Type 2 diabetes mellitus with diabetic polyneuropathy, [...] sugar event or severe hypoglycemia requiring third democrat intervention. Ms. Marques reported that morning blood [...] st Contact Info) Description 05/17/2024 2:45 PM COLLECTIONS DIRECTOR Office Visit [facility] - Endocrinology [facility] #2 [place] [address] Annel Rod MD #2 [facility] [address] [place] [address] documented as of this encounter Visit Diagnoses [...] documented as of this encounter Care Teams Flag Maker Relationship Specialty Start Date End Date Justen Gale MD #2 [facility] [address] [place] [address] PCP - General Family Medicine 10/17/17 documented as of this encounter
--- OUTSIDE RECORDS SUMMARY | 2024-04-26 07:54 | XMS_ITS | Encounter Summary ---
Author Organization [facility] Address [address] [place] [address] Phone Care Team Providers Care Meat Team Lead Name Role Phone Justen Gale MD Primary Care Provider [phone] Reason for Visit * Reason Comments Medication Refill Encounter Details Date Type Department Care Team (Late st Contact Info) Description 05/05/2019 Refill [facility] - Endocrinology - [place] #2 [place] [address] Annel Rod MD #[address] [address] Medication Refill Social History Tobacco [...] - 05/06/2019 8:50 AM CST Rx sent UTER EQUIPMENT INSTALLER * Telephone Encounter - Jennifer Wang, RN - 05/06/2019 8:48 AM COMPUTER EQUIPMENT INSTALLER Refill request received. Order pended. Requested Prescriptions Pending Prescriptions Disp Refills ??? LANTUS SOLOSTAR 100 UNIT/ML Solution Pen-injector [Pharmacy Med Name: LANTUS SOLOSTAR PEN INJ 3ML] 15 mL 2 Sig: INJECT 50 UNITS EVERY MORNING Last 3 appointments cancelled due to mobility issues. UTER EQUIPMENT INSTALLER documented in this encounter Plan of Treatment Upcoming Encounters Date Type Department Care Team (Late st Contact Info) Description 05/17/2024 2:45 PM COMPUTER EQUIPMENT INSTALLER Office Visit [facility] - Endocrinology [facility] #2 [place] [address] Annel Rod MD #2 [facility] [address] [place] [address] documented as of this encounter Visit Diagnoses Not on filedocumented in this encounter Additional Health Concerns Assessment Noted Time PHQ-9 Depression Total Score: 0 09/08/19 19 1:00 PM CDT documented as of this encounter Care Teams Meat Team Lead Relationship Specialty Start Date End Date Justen Gale MD #2 [facility] [address] [place] [address] PCP - General Family Medicine 10/17/17 documented as of this encounter
--- OUTSIDE RECORDS SUMMARY | 2024-04-26 07:54 | XMS_ITS | Encounter Summary ---
Author Organization [facility] Address [address] [place] [address] Phone Care Team Providers Care Bat Boy/Girl Name Role Phone Justen Gale MD Primary Care Provider [phone] Encounter Details Date Type Department Care Team (Late st Contact Info) Description 07/26/2019 11:00 AM CDT Lab [facility] #2 [facility] [address] [place] [address] Everardo Jackson Lab/Ancillary Nausea; Hyperthyroidism [...] Contact Info) Description 05/17/2024 2:45 PM ACTUARIAL ASSISTANT Office Visit [facility] - [place] #2 [place] [phone] Annel Rod MD #[address] [address] documented as of this encounter [...] 12.00 10(3)/mcL 07/26/2019 11:56 AM CDT [facility] RBC 4.34 3.80 - 5.30 10(6)/mcL 07/26/2019 11:56 AM CDT [facility] HEMOGLOBIN (HGB) 12.4 12.0 - 15.8 g/dL 07/26/2019 11:56 AM CDT [facility] HEMATOCRIT (HCT) 40.9 36.0 - 47.0 % 07/26/2019 11:56 AM CDT [facility] MCV 94.2 82.0 - 96.0 fL 07/26/2019 11:56 AM CDT [facility] MCH 28.6 26.0 - 34.0 pg 07/26/2019 11:56 AM CDT [facility] MCHC 30.3(L) 31.0 - 36.0 g/dL 07/26/2019 11:56 AM CDT [facility] PLATELET COUNT 313 140 - 440 10(3)/mcL 07/26/2019 11:56 AM CDT [facility] RDW 14.5 11.8 - 15.5 % 07/26/2019 11:56 AM CDT [facility] MPV 9.7 9.7 - 12.4 fL 07/26/2019 11:56 AM CDT [facility] NEUTROPHILS 57.9 47.0 - 73.0 % 07/26/2019 11:56 AM CDT [facility] LYMPHOCYTES 32.2 18.0 - 42.0 % 07/26/2019 11:56 AM CDT [facility] MONOCYTES 6.7 4.0 - 12.0 % 07/26/2019 11:56 AM CDT [facility] EOSINOPHILS 2.9 0.0 - 5.0 % 07/26/2019 11:56 AM CDT [facility] BASOPHILS 0.3 0.0 - 1.0 % 07/26/2019 11:56 AM CDT [facility] ABSOLUTE NEUTROPHILS 5.38 1.60 - 7.70 10(3)/mcL 07/26/2019 11:56 AM CDT [facility] ABSOLUTE LYMPHOCYTES 2.99 1.30 - 3.20 10(3)/mcL 07/26/2019 11:56 AM CDT [facility] ABSOLUTE MONOCYTES 0.62 0.20 - 1.00 10(3)/mcL 07/26/2019 11:56 AM CDT [facility] ABSOLUTE EOSINOPHIL 0.27 0.00 - 0.40 10(3)/mcL 07/26/2019 11:56 AM CDT [facility] ABSOLUTE BASOPHILS 0.03 0.00 - 0.10 10(3)/mcL 07/26/2019 11:56 AM CDT [facility] NRBC PER 100 WBC 0 07/26/19 20 11:56 AM CDT [facility] Blood specimen (specimen) Venipuncture / Unknown 07/26/2019 11:28 AM CDT 07/26/2019 11:28 AM CDT us Justen Gale MD HEMATOLOGY ORDERABLES Final R esult [facility] #1 [place] [address] * (ABNORMAL) CMP (COMPREHENSIVE METABOLIC PANEL) (07/26/2019 11:28 AM CDT) SODIUM 138 136 - 144 mmol/L 07/26/2019 12:25 PM CDT [facility] POTASSIUM 4.6 3.5 - 5.1 mmol/L 07/26/2019 12:25 PM CDT [facility] CHLORIDE 100 100 - 110 mmol/L 07/26/2019 12:25 PM CDT [facility] CO2, VENOUS 27 22 - 32 mmol/L 07/26/2019 12:25 PM CDT [facility] ANION GAP 15.6 8.0 - 20.0 mmol/L 07/26/2019 12:25 PM CDT [facility] GLUCOSE 133(H) 70 - 99 mg/dL 07/26/2019 12:25 PM CDT [facility] BUN 18 8 - 23 mg/dL 07/26/2019 12:25 PM CDT [facility] CREATININE, BLOOD 0.74 0.60 - 1.10 mg/dL 07/26/2019 12:25 PM CDT [facility] BUN/CREATININE RATIO 24(H) 12 - 20 ratio 07/26/2019 12:25 PM CDT [facility] TOTAL PROTEIN 8.2 6.0 - 8.3 g/dL 07/26/2019 12:25 PM CDT [facility] ALBUMIN 3.8 3.5 - 5.2 g/dL 07/26/2019 12:25 PM CDT [facility] Comment: The colormetric methods used for the determination of Albumin may lead to falsely elevated test results in patients suffering from renal failure or insufficiency due to interference with other proteins. A/G RATIO 0.9(L) 1.0 - 2.0 07/26/2019 12:25 PM CDT [facility] CALCIUM 9.7 8.9 - 10.3 mg/dL 07/26/2019 12:25 PM CDT [facility] T BILI 0.6 <=1.2 mg/dL 07/26/2019 12:25 PM CDT [facility] SGOT (AST) 18 <=32 U/L 07/26/2019 12:25 PM CDT [facility] SGPT (ALT) 20 <=33 U/L 07/26/2019 12:25 PM CDT [facility] ALKALINE PHOSPHATASE 88 35 - 105 U/L 07/26/2019 12:25 PM CDT [facility] GFR, EST. NONAFRICAN >60 >=60 07/26/2019 12:25 PM CDT [facility] GFR, EST. >60 >=60 020 12:25 PM CDT [facility] Comment: Creatinine Clearance is the preferred criteria for selecting drug dose adjustments in renally impaired patients. ??The GFR is provided as additional pertinent clinical information. GFR is reported in mL/min/1.73 sq m. Blood specimen (specimen) Venipuncture / Unknown 07/26/2019 11:28 AM CDT 07/26/2019 11:28 AM CDT us Justen Gale MD CHEMISTRY ORDERABLES Final Re sult [facility] #1 [place] [address] * THYROID STIMULATING HORMONE (TSH) (07/26/2019 11:28 AM CDT) TSH 3.960 0.270 - 4.200 mIU/L 07/26/2019 12:25 PM CDT [facility] Blood specimen (specimen) Venipuncture / Unknown 07/26/2019 11:28 AM CDT 07/26/2019 11:28 AM CDT us Justen Gale MD CHEMISTRY ORDERABLES Final Re sult [facility] [address] [place] [address] documented in this encounter Visit Diagnoses Diagnosis Nausea Nausea alone Hyperthyroidism Thyrotoxicosis without mention of goiter or other cause, without mention of thyrotoxic crisis or storm documented in this encounter Additional Health Concerns Assessment Noted Time PHQ-9 Depression Total Score: 0 09/08/19 19 1:00 PM CDT documented as of this encounter Care Teams Bat Boy/Girl Relationship Specialty Start Date End Date Justen Gale MD #[address] [address] PCP - General Family Medicine 10/17/17 documented as of this encounter
--- OUTSIDE RECORDS SUMMARY | 2024-04-26 07:54 | XMS_ITS | Encounter Summary ---
Author Organization [facility] Address [address] [place] [address] Phone Care Team Providers Care Cementing Bulk Material Operator Name Role Phone Justen Gale MD Primary Care Provider Reason for Visit * Reason Onset Date Comments Constipation 07/17/2019 Nausea 07/17/2019 Encounter Details Date Type Department Care Team (Late st Contact Info) Description 07/17/2019 Nurse Triage [facility] [address] [place] [address] Justen Gale MD #[address] [address] Constipation; Nausea Social History Tobacco Use Types [...] [2] > once a month Protocols used: [id number] documented in this encounter Plan of Treatment Upcoming Encounters Date Type Department Care Team (Late st Contact Info) Description 05/17/2024 2:45 PM SUPERVISOR BROODER FARM Office Visit [facility] - [place] [address] [place] [address] [facility]el Rod [facility] [address] [place] [address] documented as of this encounter Visit Diagnoses Not on filedocumented in this encounter Additional Health Concerns Assessment Noted Time PHQ-9 Depression Total Score: 0 09/08/19 19 1:00 PM CDT documented as of this encounter Care Teams Cementing Bulk Material Operator Relationship Specialty Start Date End Date Justen Gale MD #2 INOCENCIADANIAL [facility] [address] [place] [address] PCP - General Family Medicine 10/17/17 documented as of this encounter
--- OUTSIDE RECORDS SUMMARY | 2024-04-26 07:54 | XMS_ITS | Encounter Summary ---
Author Organization [facility] Care Team Providers Care Spa Receptionist Name Role Phone Justen Gale MD Primary Care Provider [phone] Encounter Details Date Type Department Care Team [...] st Contact Info) Description 05/17/2024 2:45 PM SECURITIES AND REAL ESTATE DIRECTOR Office Visit [facility] - [place] [address] [place] [address] Annel Rod MD [address] [address] documented as of this encounter Visit Diagnoses Not on filedocumented in this encounter Additional Health Concerns Infection Onset Date Last Indicated Resolved Time COVID - 19 09/05/2019 09/06/2019 10/03/2019 12:1 7 AM CDT Assessment Noted Time PHQ-9 Depression Total Score: 0 09/08/19 1:00 PM CDT documented as of this encounter Care Teams Spa Receptionist Relationship Specialty Start Date End Date Justen Gale MD #2 [place] [id number] PCP - General Family Medicine 10/17/17 documented as of this encounter
--- OUTSIDE RECORDS SUMMARY | 2024-04-26 07:54 | XMS_ITS | Encounter Summary ---
Author Organization [facility] [employer] Care Team Providers Care Chargemaster Specialist Name Role Phone Justen Gale MD Primary Care Provider [phone] Encounter Details Date Type Department Care Team [...] Info) Description 05/17/2024 2:45 PM COMMERCIAL CREDIT LEAD Office Visit [facility] - [place] #[address] [place] [address] Annel Rod MD [address] [phone] documented as of this encounter Visit Diagnoses Not on filedocumented in this encounter Additional Health Concerns Assessment Noted Time PHQ-9 Depression Total Score: 0 09/08/19 19 1:00 PM CDT documented as of this encounter Care Teams Chargemaster Specialist Relationship Specialty Start Date End Date Justen Gale MD #2 [place] [address] PCP - General Family Medicine 10/17/17 documented as of this encounter
--- OUTSIDE RECORDS SUMMARY | 2024-04-26 07:54 | XMS_ITS | Encounter Summary ---
Author Organization [facility] Address [address] [place] [address] Phone Care Team Providers Care Senior Payroll Administrator Name Role Phone Justen Gale MD Primary Care Provider [phone] Encounter Details Date Type Department Care Team (Late st Contact Info) Description 04/26/2019 Telephone [facility] #2 [place] [address] Justen Gale MD #[address] [address] Social History Tobacco Use Types Packs/Day Years [...] MD - 04/26/2019 10:58 AM CST d RETTE TIPPER documented in this encounter Plan of Treatment Upcoming Encounters Date Type Department Care Team (Late st Contact Info) Description 05/17/2024 2:45 PM CIGARETTE TIPPER Office Visit [facility] Endocr[facility] #2 [place] [address] Annel Rod MD #2 [facility] [address] [place] [address] documented as of this encounter Visit Diagnoses Not on filedocumented in this encounter Additional Health Concerns Assessment Noted Time PHQ-9 Depression Total Score: 0 09/08/19 19 1:00 PM CDT documented as of this encounter Care Teams Senior Payroll Administrator Relationship Specialty Start Date End Date Justen Gale MD [facility] [address] [place] [address] PCP - General Family Medicine 10/17/17 documented as of this encounter
--- OUTSIDE RECORDS SUMMARY | 2024-04-26 07:54 | XMS_ITS | Encounter Summary ---
Author Organization [facility] Address [address] [place] [address] Phone Care Team Providers Care Hitting Coach Name Role Phone Justen Gale MD Primary Care Provider [phone] Reason for Visit * Reason Comments Nausea Encounter Details Date Type Department Care Team (Late st Contact Info) Description 07/25/2019 3:00 PM CDT Telemedicine [facility] Family [facility] #2 [place] [phone] Justen Gale MD #[address] [address] Nausea (Primary Dx); Hyperthyroidism Social History Tobacco [...] for thisservice to be performed and billed. [phone] HPI: Karly Marques is a 64 y.o. [...] sooner if gets worse. Dm related? Meds? Real diet? documented in this encounter Plan of Treatment Upcoming Encounters Date Type Department Care Team (Late st Contact Info) Description 05/17/2024 2:45 PM MEDICAL LEADER Office Visit [facility] #2 [place] [address] Annel Rod MD #[address] [address] documented as of this encounter Results * (ABNORMAL) CMP (COMPREHENSIVE METABOLIC PANEL) (07/26/2019 11:28 AM CDT) SODIUM 138 136 - 144 mmol/L 07/26/2019 12:25 PM CDT [facility] POTASSIUM 4.6 3.5 - 5.1 mmol/L 07/26/2019 12:25 PM CDT [facility] CHLORIDE 100 100 - 110 mmol/L 07/26/2019 12:25 PM CDT [facility] CO2, VENOUS 27 22 - 32 mmol/L 07/26/2019 12:25 PM CDT [facility] ANION GAP 15.6 8.0 - 20.0 mmol/L 07/26/2019 12:25 PM CDT [facility] GLUCOSE 133(H) 70 - 99 mg/dL 07/26/2019 12:25 PM CDT [facility] BUN 18 8 - 23 mg/dL 07/26/2019 12:25 PM CDT [facility] CREATININE, BLOOD 0.74 0.60 - 1.10 mg/dL 07/26/2019 12:25 PM CDT [facility] BUN/CREATININE RATIO 24(H) 12 - 20 ratio 07/26/2019 12:25 PM CDT [facility] TOTAL PROTEIN 8.2 6.0 - 8.3 g/dL 07/26/2019 12:25 PM CDT [facility] ALBUMIN 3.8 3.5 - 5.2 g/dL 07/26/2019 12:25 PM CDT [facility] Comment: The colormetric methods used for the determination of Albumin may lead to falsely elevated test results in patients suffering from renal failure or insufficiency due to interference with other proteins. A/G RATIO 0.9(L) 1.0 - 2.0 07/26/2019 12:25 PM CDT [facility] CALCIUM 9.7 8.9 - 10.3 mg/dL 07/26/2019 12:25 PM CDT [facility] T BILI 0.6 <=1.2 mg/dL 07/26/2019 12:25 PM CDT [facility] SGOT (AST) 18 <=32 U/L 07/26/2019 12:25 PM CDT [facility] SGPT (ALT) 20 <=33 U/L 07/26/2019 12:25 PM CDT [facility] ALKALINE PHOSPHATASE 88 35 - 105 U/L 07/26/2019 12:25 PM CDT [facility] GFR, EST. NONAFRICAN >60 >=60 07/26/2019 12:25 PM CDT [facility] GFR, EST. >60 >=60 020 12:25 PM CDT [facility] Comment: Creatinine Clearance is the preferred criteria for selecting drug dose adjustments in renally impaired patients. ??The GFR is provided as additional pertinent clinical information. GFR is reported in mL/min/1.73 sq m. Blood specimen (specimen) Venipuncture / Unknown 07/26/2019 11:28 AM CDT 07/26/2019 11:28 AM CDT Justen Gale MD CHEMISTRY ORDERABLES Final Re sult Performing Organization Address [facility] Co de Phone Number [facility] #1 [place] [address] * THYROID STIMULATING HORMONE (TSH) (07/26/2019 11:28 AM CDT) TSH 3.960 0.270 - 4.200 mIU/L 07/26/2019 12:25 PM CDT [facility] Blood specimen (specimen) Venipuncture / Unknown 07/26/2019 11:28 AM CDT 07/26/2019 11:28 AM CDT Justen Gale MD CHEMISTRY ORDERABLES Final Re sult Performing Organization Address [facility] de Phone Number [facility] #[address] [place] [address] documented in this encounter Visit Diagnoses Diagnosis Nausea- Primary Nausea alone Hyperthyroidism Thyrotoxicosis without mention of goiter or other cause, without mention of thyrotoxic crisis or storm documented in this encounter Additional Health Concerns Assessment Noted Time PHQ-9 Depression Total Score: 0 09/08/19 19 1:00 PM CDT documented as of this encounter Care Teams Hitting Coach Relationship Specialty Start Date End Date Justen Gale MD #[address] [address] PCP - General Family Medicine 10/17/17 documented as of this encounter
--- OUTSIDE RECORDS SUMMARY | 2024-04-26 07:54 | XMS_ITS | Encounter Summary ---
Author Organization [facility] Address [address] [place] [address] Phone Care Team Providers Care Superintendent System Operation Name Role Phone Justen Gale MD Primary Care Provider [phone] Reason for Visit * Reason Onset Date Comments Pre-Operative Exam 04/22/2019 Encounter Details Date Type Department Care Team (Late st Contact Info) Description 04/22/2019 Telephone [facility] #2 [place] [phone] Justen Gale MD #[address] [address] Pre-Operative Exam Social History Tobacco Use Types [...] PCP. Faxed successfully to Dr. Mensah's office. CHECKER * Telephone Encounter - Christin Hay RN - 05/23/2019 10:02 AM CORE CHECKER Received request for updated clearance from Dr. Mensah's office. Patients surgery was rescheduled to 06/05/2019. Is provider willing to sign updated clearance? Please advise. Forms placed on PCP desk. CHECKER * Telephone Encounter - Jennifer Kumari RN - 04/23/2019 3:03 PM CORE CHECKER Lupe with outpatient registration calling and reporting [facility] cannot see the chest xray order. Chest xray noted to be . Order extended. Lupe could see the order. CHECKER * Telephone Encounter - Christin Hay RN [...] no answer and no voicemail picked up. CHECKER documented in this encounter Plan of Treatment Upcoming Encounters Date Type Department Care Team (Late st Contact Info) Description 05/17/2024 2:45 PM CORE CHECKER Office Visit [facility] - [place] #2 [place] [address] Annel Rod MD #[address] [address] documented as of this encounter Visit Diagnoses Not on filedocumented in this encounter Additional Health Concerns Assessment Noted Time PHQ-9 Depression Total Score: 0 09/08/19 19 1:00 PM CDT documented as of this encounter Care Teams Superintendent System Operation Relationship Specialty Start Date End Date Justen Gale MD #2 [place] [address] PCP - General Family Medicine 10/17/17 documented as of this encounter
--- OUTSIDE RECORDS SUMMARY | 2024-04-26 07:54 | XMS_ITS | Encounter Summary ---
Author Organization [facility] Address [address] [place] [address] Phone Care Team Providers Care Associate Professor Of Music Name Role Phone Justen Gale MD Primary Care Provider Reason for Visit * Reason Comments Medication Refill Encounter Details Date Type Department Care Team (Late st Contact Info) Description 06/13/[address] [facility] [address] [place], [place] [phone] Justen Gale MD #[address] [address] Medication Refill Social History Tobacco Use Types [...] Felicitas Krishna RN - 06/14/2019 8:25 AM JEWEL BEARING TURNER Medication(s) refilled and signed per [facility] Chronic Medication Refill Standing Order for Pediatric and Adult Patients. L BEARING TURNER documented in this encounter Plan of Treatment Upcoming Encounters Date Type Department Care Team (Late st Contact Info) Description 05/17/2024 2:45 PM JEWEL BEARING TURNER Office Visit [facility] - Endocrinology - [place] #2 [place] [address] Annel Rod MD #2 [facility] [address] [place] [address] documented as of this encounter Visit Diagnoses Not on filedocumented in this encounter Additional Health Concerns Assessment Noted Time PHQ-9 Depression Total Score: 0 09/08/19 19 1:00 PM CDT documented as of this encounter Care Teams Associate Professor Of Music Relationship Specialty Start Date End Date Justen Gale MD #2 [facility] [address] [place] [address] PCP - General Family Medicine 10/17/17 documented as of this encounter
--- OUTSIDE RECORDS SUMMARY | 2024-04-26 07:54 | XMS_ITS | Encounter Summary ---
Author Organization [facility] Address [address] [place] [address] Phone Care Team Providers Care Drafter Name Role Phone Justen Gale MD Primary Care Provider [phone] Reason for Referral * Radiology Services (Routine) - Closed Specialty Diagnoses / Procedures Referred By Contac t Referred To Contact Radiology Diagnoses Preop examination Procedures XR CHEST 2 VIEWS Justen Gale MD #[address] [address] Phone: tel: fax: Referral ID Status Reason Start Date Expiration Date Visits Re quested Visits Authorized [id number] Closed 04/15/2019 1 1 FACTURING APPLICATIONS ENGINEER Reason for Visit * Radiology Services (Routine) - Closed Specialty Diagnoses / Procedures Referred By Elyssa benavides Referred To Contact Radiology Diagnoses Preop examination Procedures XR CHEST 2 VIEWS Justen Gale MD #[address] [address] Phone: tel: fax: Referral ID Status Reason Start Date Expiration Date Visits Re quested Visits Authorized [id number] Closed 04/15/2019 1 1 Encounter Details Date Type Department Care Team (Latest Contact Info) Description 04/23/2019 3:30 PM MANUFACTURING APPLICATIONS ENGINEER - 04/23/2019 11:59 PM MANUFACTURING APPLICATIONS ENGINEER Hospital Encounter [facility] [address] [place] [phone] Justen Gale MD #[address] [facility] [address] [place] [address] Discharge Disposition: Discharged to home or Selfcare [...] of insulin ([facility]) Diagnosis: Diabetes Type 2 Blood testing frequency: [...] Contact Info) Description 05/17/2024 2:45 PM MANUFACTURING APPLICATIONS ENGINEER Office Visit [facility] Endocr[facility] #[address] [place] [phone] Annel Rod MD #[address] [address] documented as of this encounter Procedures Procedure Name Priority Date/Time Associated Diagnosis Comments XR CHEST 2 VIEWS Routine 04/23/2019 3:52 PM MANUFACTURING APPLICATIONS ENGINEER Preop examination documented in this encounter Results * XR CHEST 2 VIEWS (04/23/2019 3:52 PM MANUFACTURING APPLICATIONS ENGINEER) Anatomical Region Laterality Modality Chest N/A Digital Radiogra phy 04/23/2019 3:58 PM MANUFACTURING APPLICATIONS ENGINEER Impressions 04/23/2019 4:01 PM MANUFACTURING APPLICATIONS ENGINEER IMPRESSION: ??No acute findings noted. Narrative 04/23/2019 4:01 PM MANUFACTURING APPLICATIONS ENGINEER EXAM DESCRIPTION: ??XR CHEST 2 VIEWS REASON [...] PM T: ??04/23/2019 3:58 PM Report ID: [id number] Reading Location: ??[id number] Procedure Note Robert Restrepo MD - 04/23/2019 [...] Robert Restrepo M.D. RL: CHARLEEN Report ID: [id number] Reading Location: [place] [address] IMPRESSION: No acute findings noted. Justen Gale MD IMG DIAGNOSTIC ORDERABLES Fin al Result documented in this encounter Visit Diagnoses Diagnosis Preop examination Preoperative examination, unspecified documented in this encounter Additional Health Concerns Assessment Noted Time PHQ-9 Depression Total Score: 0 09/08/19 19 1:00 PM CDT documented as of this encounter Care Teams Drafter Relationship Specialty Start Date End Date Justen Gale MD #2 [place] [address] PCP - General Family Medicine 10/17/17 documented as of this encounter
--- OUTSIDE RECORDS SUMMARY | 2024-04-26 07:54 | XMS_ITS | Encounter Summary ---
Author Organization [facility] Address [address] [facility] [place] [address] Phone Care Team Providers Care Maintenance Department Technician Name Role Phone Justen Gale MD Primary Care Provider [phone] Reason for Visit * Reason Onset Date Comments COVID-19 09/05/2019 Nausea 09/05/2019 Chills 09/05/2019 Shortness of Breath 09/05/2019 Encounter Details Date Type Department Care Team ([facility] Contact Info) Description 09/05/2019 Nurse Triage [facility] Digital Contact Center [address] [place] [address] Justen Gale MD [address] [address] COVID-19; Nausea; Chills; Shortness of Breath Social [...] care for COVID. Scheduled TELEPHONE appt. with [facility] provider. For Home Care advice: Patient counseled [...] trouble breathing or other complications Protocols used: [id number], CORONAVIRUS (COVID-19) DIAGNOSED OR [id number] * Telephone Encounter - Aislinn Jeter, AUDIO VISUAL DIRECTOR-SPEECH LANGUAGE PATHOLOGIST - 09/05/2019 1:58 PM CDT [...] if they would like to speak to manager discovery. Did patient request manager discovery? yes ??? Patient counseled to remain at [...] understanding of the above information. AISLINN JETER, AUDIO VISUAL DIRECTOR-SPEECH LANGUAGE PATHOLOGIST Electronically signed by Aislinn Jeter, AUDIO VISUAL DIRECTOR-SPEECH LANGUAGE PATHOLOGIST at 09/05/2019 2:05 PM CDT documented in this encounter Plan of Treatment Upcoming Encounters Date Type Department Care Team (Late st Contact Info) Description 05/17/2024 2:45 PM ELECTRIC INSTALLER Office Visit [facility] - Endocrinology [facility] [address] [place] [address] Annel Rod MD #[address] [phone] documented as of this encounter Visit Diagnoses Not on filedocumented in this encounter Additional Health Concerns Assessment Noted Time PHQ-9 Depression Total Score: 0 09/08/19 19 1:00 PM CDT documented as of this encounter Care Teams Maintenance Department Technician Relationship Specialty Start Date End Date Justen Gale MD #2 [place] [address] PCP - General Family Medicine 10/17/17 documented as of this encounter
--- OUTSIDE RECORDS SUMMARY | 2024-04-26 07:54 | XMS_ITS | Encounter Summary ---
Author Organization [facility] Address [address] [place] [address] Phone Care Team Providers Care Metal Turner Name Role Phone Justen Gale MD Primary Care Provider [phone] Reason for Visit * Reason Onset Date Comments Chest Pain 06/13/2019 Encounter Details Date Type Department Care Team (Late st Contact Info) Description 06/13/2019 Nurse Triage [facility] [address] [place], [place] [phone] Justen Gale MD #[address] [address] Chest Pain Social History Tobacco Use Types [...] go to ED. Patient is in agreeance. STICKS REPAIRER documented in this encounter Plan of Treatment Upcoming Encounters Date Type Department Care Team (Late st Contact Info) Description 05/17/2024 2:45 PM SHOE STICKS REPAIRER Office Visit [facility] - Endocrinology [facility] #2 [place] [address] Annel Rod MD #[address] [address] documented as of this encounter Visit Diagnoses Not on filedocumented in this encounter Additional Health Concerns Assessment Noted Time PHQ-9 Depression Total Score: 0 09/08/19 19 1:00 PM CDT documented as of this encounter Care Teams Metal Turner Relationship Specialty Start Date End Date Justen Gale MD #2 [facility] [address] [place] [address] PCP - General Family Medicine 10/17/17 documented as of this encounter
--- OUTSIDE RECORDS SUMMARY | 2024-04-26 07:54 | XMS_ITS | Encounter Summary ---
Author Organization [facility] Address [address] [place] [address] Phone Care Team Providers Care Watch Assembly Instructor Name Role Phone Justen Gale MD Primary Care Provider [phone] Reason for Referral * Consult, Test & Initiate Treatment (Routine) - Closed Specialty Diagnoses / Procedures Referred By Contac t Referred To Contact Diagnoses Pain Justen Gale MD #[address] [address] Phone: tel: fax: Taylor Smith MD Phone: tel: fax: Referral ID Status Reason Start Date Expiration Date Visits Re quested Visits Authorized [id number] Closed 08/27/2019 1 12 Scheduling Instructions Karly [...] Description 08/27/2019 Telephone [facility] [address] [place] [address] Justen Gale MD [address] [address] Referral (pain management) Social History Tobacco Use [...] st Contact Info) Description 05/17/2024 2:45 PM COUTURE ALTERATIONS DRESSMAKER Office Visit [facility] - Endocrinology [facility] #[address] [place] [address] Annel Rod MD #[address] [address] Scheduled Referrals Name Type Priority Associated Diagnoses Orde r Schedule EXTERNAL PAIN REFERRAL Outpatient Referral Routine Pain Expected: 03/23/2020, Expires: 08/26/2020 documented as of this encounter Visit Diagnoses Diagnosis Pain- Primary Generalized pain documented in this encounter Additional Health Concerns Assessment Noted Time PHQ-9 Depression Total Score: 0 09/08/19 19 1:00 PM CDT documented as of this encounter Care Teams Watch Assembly Instructor Relationship Specialty Start Date End Date Justen Gale MD #2 [facility] [address] [place] [address] PCP - General Family Medicine 10/17/17 documented as of this encounter
--- OUTSIDE RECORDS SUMMARY | 2024-04-26 07:54 | XMS_ITS | Encounter Summary ---
Author Organization [facility] Address [address] [place] [address] Phone Care Team Providers Care Liquor Rectifier Name Role Phone Justen Gale MD Primary Care Provider [phone] Reason for Visit * Reason Onset Date Comments Advice Only 04/29/2019 Encounter Details Date Type Department Care Team (Late st Contact Info) Description 04/29/2019 Telephone [facility] [address] [place], [place] [phone] Justen Gale MD #[address] [address] Advice Only Social History Tobacco Use Types [...] Radha Billy RN - 04/30/2019 10:35 AM BUNG REMOVER Patient states she is willing to wait if that is want she needs to do. I have also suggested she call her steel molder and explain to them the situation and see if they have advise to help lower her sugars. REMOVER * Telephone Encounter - Justen Gale MD - 04/29/2019 2:52 PM CST Please call. It might be better just to wait anohter month to have your current surgeon do it. Are you willing to wait a month? REMOVER * Telephone Encounter - Jennifer Kumari RN - 04/29/2019 2:44 PM BUNG REMOVER Patient calling and reporting her foot surgeon [...] another month due to the elvated ha1c. REMOVER documented in this encounter Plan of Treatment Upcoming Encounters Date Type Department Care Team (Late st Contact Info) Description 05/17/2024 2:45 PM BUNG REMOVER Office Visit [facility] - Endocrinology - [place] [address] [place] [address] Annel Rod MD #[address] [address] documented as of this encounter Visit Diagnoses Not on filedocumented in this encounter Additional Health Concerns Assessment Noted Time PHQ-9 Depression Total Score: 0 09/08/19 19 1:00 PM CDT documented as of this encounter Care Teams Liquor Rectifier Relationship Specialty Start Date End Date Justen Gale MD [address] [address] PCP - General Family Medicine 10/17/17 documented as of this encounter
--- OUTSIDE RECORDS SUMMARY | 2024-04-26 07:54 | XMS_ITS | Encounter Summary ---
Author Organization [facility] Address [address] [place] [address] Phone Care Team Providers Care Discharge Door Operator Name Role Phone Justen Gale MD Primary Care Provider [phone] Reason for Visit * Reason Comments Medication Refill Encounter Details Date Type Department Care Team (Late st Contact Info) Description 07/23/2019 Refill [facility] - Endocrinology - [place] #2 [place] [address] Annel Rod MD #[address] [address] Medication Refill Social History Tobacco [...] Contact Info) Description 05/17/2024 2:45 PM DAIRY BACTERIOLOGIST Office Visit [facility] - Endocrinology [facility] #[address] [place] [address] Annel Rod MD #[address] [address] documented as of this encounter Visit Diagnoses Not on filedocumented in this encounter Additional Health Concerns Assessment Noted Time PHQ-9 Depression Total Score: 0 09/08/19 19 1:00 PM CDT documented as of this encounter Care Teams Discharge Door Operator Relationship Specialty Start Date End Date Justen Gale MD #2 [facility] [address] [place] [address] PCP - General Family Medicine 10/17/17 documented as of this encounter
--- OUTSIDE RECORDS SUMMARY | 2024-04-26 07:54 | XMS_ITS | Encounter Summary ---
Author Organization [facility] Address [address] [place] [address] Phone Care Team Providers Care Engine Repairer Production Name Role Phone Justen Gale MD Primary Care Provider [phone] Reason for Referral * Consult, Test & Initiate Treatment (Routine) - Canceled Specialty Diagnoses / Procedures Referred By Contac t Referred To Contact Endocrinology Diagnoses Type 2 diabetes mellitus with diabetic polyneuropathy, with long-term current use of insulin (HCC) Justen Gale MD #2 [facility] [address] [place] [address] Phone: tel: fax: Annel Rod MD #[address] [address] Phone: tel: fax: Referral ID Status Reason Start Date Expiration Date V isits Requested Visits Authorized [id number] Canceled 07/17/2019 1 11 Scheduling Instructions Karly [...] (Late st Contact Info) Description 07/17/[address] [address] Justen Gale MD #[address] [address] Referral Social History Tobacco Use Types Packs/Day [...] - 07/17/2019 3:13 PM CDT [facility] calling and asking for an endocrinology referral. Patient has an appt on 07/30/2019. External endocrinology referral pended, please review. documented in this encounter Plan of Treatment Upcoming Encounters Date Type Department Care Team (Late Contact Info) Description 05/17/2024 2:45 PM HOUSE REGISTRY RN Office Visit [facility] - Endocrinology - [place] #[address] [place] [address] Annel Rod MD #2 [facility] [address] [place] [address] Scheduled Referrals Name Type Priority Associated Diagnoses [...] documented as of this encounter Care Teams Engine Repairer Production Relationship Specialty Start Date End Date Justen Gale MD #2 [facility] [address] [place] [address] PCP - General Family Medicine 10/17/17 documented as of this encounter
--- OUTSIDE RECORDS SUMMARY | 2024-04-26 07:54 | XMS_ITS | Encounter Summary ---
Author Organization [facility] Address [address] [place] [address] Phone Care Team Providers Care Nutrition Partner Name Role Phone Justen Gale MD Primary Care Provider [phone] Reason for Referral * Consult, Test & Initiate Treatment (Less Than 1 Week) - Closed Specialty Diagnoses / Procedures Referred By Contac t Referred To Contact Diagnoses Left foot pain Justen Gale MD #[address] [address] Phone: tel: fax: Referral ID Status Reason Start Date Expiration Date Visits Re quested Visits Authorized [id number] Closed 05/21/2019 1 1 Scheduling Instructions Karly is being referred to devil dog or other specialist in patient's insurance network [...] 59.9 in adult (HCC) Thyroid nodule D BANK CREDIT CLERK Encounter Details Date Type Department Care Team (Late st Contact Info) Description 05/21/2019 Telephone [facility] [address] [place] [address] Justen Gale MD #[address] [address] Social History Tobacco Use Types Packs/Day Years [...] telephone encounter from 04/22/2020 regarding preop exam. D BANK CREDIT CLERK * Telephone Encounter - Jennifer Kumari RN - 05/22/2019 1:56 PM BLOOD BANK CREDIT CLERK Patient calling and reporting that her current [...] to fill out prior to patient surgery. D BANK CREDIT CLERK * Telephone Encounter - Radha Billy RN - 05/21/2019 2:13 PM BLOOD BANK CREDIT CLERK Patient calling asking for a referral to a new devil dog. States she is not happy with the currentpodiatrist. Referral pended for your approval D BANK CREDIT CLERK documented in this encounter Plan of Treatment Upcoming Encounters Date Type Department Care Team (Late st Contact Info) Description 05/17/2024 2:45 PM BLOOD BANK CREDIT CLERK Office Visit [facility] - Endocrinology - [place] #2 [place] [address] Annel Rod MD #2 [facility] [address] [place] [address] documented as of this encounter Results * EXTERNAL PODIATRY REFERRAL (06/10/2019) us Justen Gale MD OUTPT REFERRALS EXT/INT Final Result documented in this encounter Visit Diagnoses Diagnosis Left foot pain- Primary Pain in limb documented in this encounter Additional Health Concerns Assessment Noted Time PHQ-9 Depression Total Score: 0 09/08/19 19 1:00 PM CDT documented as of this encounter Care Teams Nutrition Partner Relationship Specialty Start Date End Date Justen Gale MD #2 [facility] [address] [place] [address] PCP - General Family Medicine 10/17/17 documented as of this encounter
--- OUTSIDE RECORDS SUMMARY | 2024-04-26 07:54 | XMS_ITS | Encounter Summary ---
Author Organization [facility] Address [address] [place] [address] Phone Care Team Providers Care Can Top Setter Name Role Phone Justen Gale MD Primary Care Provider [phone] Reason for Visit * Reason Onset Date Comments Need Order 04/26/2019 Encounter Details Date Type Department Care Team (Late st Contact Info) Description 04/26/2019 Telephone [facility] #2 [place] [address] Justen Gale MD #[address] [address] Need Order Social History Tobacco Use Types [...] * Telephone Encounter - Isamar Yadav APN, MACHINE QUILT STUFFER - 04/29/2019 2:31 PM HIDE AND SKIN COLERER Patient notified and verbalizes understanding. AND SKIN COLERER * Telephone Encounter - Christin Hay RN - 04/29/2019 9:07 AM CST Clearance faxed successfully to Dr. Mensah's office. AND SKIN COLERER * Telephone Encounter - Marlys Lane RN - 04/26/2019 11:30 AM HIDE AND SKIN COLERER Patient calling back and states that she will go to [facility] this afternoon to get labs done. Just FY. AND SKIN COLERER * Telephone Encounter - Christin Hay RN - 04/26/2019 11:08 AM HIDE AND SKIN COLERER Patient came to have labs drawn on 04/23/2019 but Lipid panel was the only thing drawn. Orders for CMP, CBC, and A1C extended and patient informed that she needs to come and have these labs drawn in order for Dr. Gale to clear her for surgery. Patient verbalized understanding and then placed this RN on hold and call was disconnected. AND SKIN COLERER documented in this encounter Plan of Treatment Upcoming Encounters Date Type Department Care Team (Late st Contact Info) Description 05/17/2024 2:45 PM HIDE AND SKIN COLERER Office Visit [facility] - Endocrinology - [place] [address] [place] [address] Annel Rod MD #[address] [address] documented as of this encounter Visit Diagnoses Not on filedocumented in this encounter Additional Health Concerns Assessment Noted Time PHQ-9 Depression Total Score: 0 09/08/19 19 1:00 PM CDT documented as of this encounter Care Teams Can Top Setter Relationship Specialty Start Date End Date Justen Gale MD #2 [place] [address] PCP - General Family Medicine 10/17/17 documented as of this encounter
--- OUTSIDE RECORDS SUMMARY | 2024-04-26 07:54 | XMS_ITS | Encounter Summary ---
Author Organization [facility] Address [address] [place] [address] Phone Care Team Providers Care Assigner Name Role Phone Justen Gale MD Primary Care Provider [phone] Reason for Visit * Reason Comments Medication Refill Encounter Details Date Type Department Care Team (Late st Contact Info) Description 08/07/2019 Refill [facility] [address] [place], [place] [phone] Justen Gale MD #[address] [address] Medication Refill Social History Tobacco Use Types [...] [facility] Pili Elkins APN, MOTOR SETTER 1 year ago Type 2 diabetes mellitus with complication, without long-term current use of insulin (HCC) [facility] Justen Mcwilliams MD Upcoming Appointments Future Appointments In 6 days Annel Rod MD [facility] documented in this encounter Plan of Treatment Upcoming Encounters Date Type Department Care Team (Late st Contact Info) Description 05/17/2024 2:45 PM FIRST DYER Office Visit [facility] - Endocrinology - [place] [address] [place] [address] Annel Rod MD [address] [address] documented as of this encounter Visit Diagnoses Not on filedocumented in this encounter Additional Health Concerns Assessment Noted Time PHQ-9 Depression Total Score: 0 09/08/19 19 1:00 PM CDT documented as of this encounter Care Teams Assigner Relationship Specialty Start Date End Date Justen Gale MD #[address] [address] PCP - General Family Medicine 10/17/17 documented as of this encounter
--- OUTSIDE RECORDS SUMMARY | 2024-04-26 07:54 | XMS_ITS | Encounter Summary ---
Author Organization [facility] Address [address] [facility] [place] [address] Phone Care Team Providers Care Fiber Optics Engineer Name Role Phone Justen Gale MD Primary Care Provider [phone] Reason for Visit * Reason Onset Date Comments COVID-19 09/05/2019 Encounter Details Date Type Department Care Team (Late st Contact Info) Description 09/05/2019 2:30 PM CDT Telemedicine [facility] Digital Contact Center [address] [place] [address] Fabiola Carlin APRN, NETTA Shortness of breath [...] APN, NETTA - 09/05/2019 2:30 PM CDT [facility] SUBJECTIVE Chief Complaint Patient presents with ??? [...] daily. 90 Tab 3 ??? Misc. Devices [facility] and instructions: 1 Each [...] during dialogue. Physical Exam ASSESSMENT/PLAN -Evaluation at [facility] in [facility] today (did call over and they are willing to see her). -COVID 19 testing- contacted [facility]. They will call her to arranged testing [...] sick leave, or to return to work. [facility] is not providing excuse for work notes or return to work notes at this time per CDC recommendations. Caller verbalizes understanding of the above information. Recommended disposition of further evaluation at [facility] today supported by the above documentation. Patient [...] Contact Info) Description 05/17/2024 2:45 PM QUALITY AUDITOR Office Visit [facility] - Endocrinology - [place] #2 [place] [address] Annel Rod MD #2 [facility] [address] [place] [address] documented as of this encounter Visit Diagnoses Diagnosis Shortness of breath- Primary Nausea and vomiting, intractability of vomiting not specified, unspecified vomiting type documented in this encounter Additional Health Concerns Assessment Noted Time PHQ-9 Depression Total Score: 0 09/08/19 19 1:00 PM CDT documented as of this encounter Care Teams Fiber Optics Engineer Relationship Specialty Start Date End Date Justen Gale MD #[address] [facility] [address] [place] [address] PCP - General Family Medicine 10/17/17 documented as of this encounter
--- OUTSIDE RECORDS SUMMARY | 2024-04-26 07:54 | XMS_ITS | Encounter Summary ---
Author Organization [facility] Address [address] [place] [address] Phone Care Team Providers Care Investor Relations Coordinator Name Role Phone Jsuten Gale MD Primary Care Provider [phone] Reason for Visit * Reason Onset Date Comments Follow-up 08/06/2019 Encounter Details Date Type Department Care Team (Late st Contact Info) Description 08/06/2019 Telephone [facility] [address] [place] [address] Justen Gale MD #[address] [address] Follow-up Social History Tobacco Use Types Packs/Day [...] st Contact Info) Description 05/17/2024 2:45 PM SOIL FERTILITY EXTENSION SPECIALIST Office Visit [facility] - Endocrinology - [place] [address] [place] [address] Annel Rod MD #[address] [address] documented as of this encounter Visit Diagnoses Not on filedocumented in this encounter Additional Health Concerns Assessment Noted Time PHQ-9 Depression Total Score: 0 09/08/19 19 1:00 PM CDT documented as of this encounter Care Teams Investor Relations Coordinator Relationship Specialty Start Date End Date Justen Gale MD #[address] [address] PCP - General Family Medicine 10/17/17 documented as of this encounter
--- OUTSIDE RECORDS SUMMARY | 2024-04-26 07:54 | XMS_ITS | Encounter Summary ---
Author Organization [facility] Address [address] [place] [address] Phone Care Team Providers Care Radar Tester Name Role Phone Justen Gale MD Primary Care Provider [phone] Encounter Details Date Type Department Care Team (Late st Contact Info) Description 07/29/2019 Telephone [facility] #2 [place] [address] Justen Gale MD #[address] [address] Social History Tobacco Use Types Packs/Day Years [...] st Contact Info) Description 05/17/2024 2:45 PM PARTNERSHIP MANAGER Office Visit [facility] - Endocrinology [facility] #2 [place] [address] Annel Rod MD #[address] [address] documented as of this encounter Visit Diagnoses Not on filedocumented in this encounter Additional Health Concerns Assessment Noted Time PHQ-9 Depression Total Score: 0 09/08/19 19 1:00 PM CDT documented as of this encounter Care Teams Radar Tester Relationship Specialty Start Date End Date Justen Gale MD #2 [facility] [address] [place] [address] PCP - General Family Medicine 10/17/17 documented as of this encounter
--- OUTSIDE RECORDS SUMMARY | 2024-04-26 07:54 | XMS_ITS | Encounter Summary ---
Author Organization [facility] Address [address] [place] [address] Phone Care Team Providers Care Veterinary Physiologist Name Role Phone Justen Gale MD Primary Care Provider [phone] Encounter Details Date Type Department Care Team (Late st Contact Info) Description 04/25/2019 Telephone [facility] [address] [place] [address] Justen Gale MD #[address] [address] Social History Tobacco Use Types Packs/Day Years [...] Radha Billy RN - 04/25/2019 2:03 PM SOCIAL MEDIA ASSISTANT Marlys with [facility] calling asking for EKG result to be faxed to them at [phone] successfully faxed [place] MEDIA ASSISTANT documented in this encounter Plan of Treatment Upcoming Encounters Date Type Department Care Team (Late st Contact Info) Description 05/17/2024 2:45 PM SOCIAL MEDIA ASSISTANT Office Visit [facility] - Endocrinology - [place] #2 [place] [address] Annel Rod MD #2 [facility] [address] [place] [address] documented as of this encounter Visit Diagnoses Not on filedocumented in this encounter Additional Health Concerns Assessment Noted Time PHQ-9 Depression Total Score: 0 09/08/19 19 1:00 PM CDT documented as of this encounter Care Teams Veterinary Physiologist Relationship Specialty Start Date End Date Justen Gale MD #2 [facility] [address] [place] [address] PCP - General Family Medicine 10/17/17 documented as of this encounter
--- OUTSIDE RECORDS SUMMARY | 2024-04-26 07:54 | XMS_ITS | Encounter Summary ---
Author Organization [facility] Address [address] [place] [address] Phone Care Team Providers Care Welfare Adviser Name Role Phone Justen Gale MD Primary Care Provider [phone] Encounter Details Date Type Department Care Team (Late st Contact Info) Description 07/26/2019 Telephone [facility] #2 [place] [address] Justen Gale MD #[address] [address] Social History Tobacco Use Types Packs/Day Years [...] encounter Miscellaneous Notes * Telephone Encounter - Dannilele Duong RMA - 07/29/2019 8:32 AM CDT [...] Contact Info) Description 05/17/2024 2:45 PM MANAGER SKILLED Office Visit [facility] - Endocrinology [facility] #2 [place] [address] Annel Rod MD #2 [facility] [address] [place] [address] documented as of this encounter Visit Diagnoses Not on filedocumented in this encounter Additional Health Concerns Assessment Noted Time PHQ-9 Depression Total Score: 0 09/08/19 19 1:00 PM CDT documented as of this encounter Care Teams Welfare Adviser Relationship Specialty Start Date End Date Justen Gale MD #2 [facility] [address] [place] [address] PCP - General Family Medicine 10/17/17 documented as of this encounter
--- OUTSIDE RECORDS SUMMARY | 2024-04-26 07:54 | XMS_ITS | Encounter Summary ---
Author Organization [facility] [employer] Care Team Providers Care Cutter Grinder Name Role Phone Justen Gale MD Primary Care Provider [phone] Encounter Details Date Type Department Care Team [...] st Contact Info) Description 05/17/2024 2:45 PM CARPENTER MINE Office Visit [facility] - Endocrinology - [place] #[address] [place] [address] Annel Rod MD #2 [facility] [address] [address] documented as of this encounter Visit Diagnoses Not on filedocumented in this encounter Additional Health Concerns Assessment Noted Time PHQ-9 Depression Total Score: 0 09/08/19 19 1:00 PM CDT documented as of this encounter Care Teams Cutter Grinder Relationship Specialty Start Date End Date Justen Gale MD #2 [place] [address] PCP - General Family Medicine 10/17/17 documented as of this encounter
--- OUTSIDE RECORDS SUMMARY | 2024-04-26 07:54 | XMS_ITS | Encounter Summary ---
Author Organization [facility] Address [address] [place] [address] Phone Care Team Providers Care Parts Department Manager Name Role Phone Justen Gale MD Primary Care Provider [phone] Reason for Visit * Reason Onset Date Comments Constipation 09/01/2019 Abdominal Pain 09/01/2019 High Blood Sugar 09/01/2019 insulin depende nt diabetic Encounter Details Date Type Department Care Team (Late st Contact Info) Description 09/01/2019 Nurse Triage [facility] [address] [place] [address] Justen Gale MD #[address] [address] Constipation; Abdominal Pain; High Blood Sugar (insulin [...] people with type 1 diabetes) Protocols used: [id number]-[id number]-RT, DIABETES - HIGH BLOOD SUGAR-A-AH * Telephone [...] this time, based on our discussion the [facility] does not recommend that you have any further testing. We would recommend following the CDC and [facility] of health guidelines,which include: ?? practicing [...] Contact Info) Description 05/17/2024 2:45 PM MEDICAL TECHNICIAN Office Visit [facility] - Endocrinology [facility] #2 [place] [address] Annel Rod MD #2 [facility] [address] [place] [address] documented as of this encounter Visit Diagnoses Not on filedocumented in this encounter Additional Health Concerns Assessment Noted Time PHQ-9 Depression Total Score: 0 09/08/19 19 1:00 PM CDT documented as of this encounter Care Teams Parts Department Manager Relationship Specialty Start Date End Date Justen Gale MD #2 [facility] [address] [place] [address] PCP - General Family Medicine 10/17/17 documented as of this encounter
--- OUTSIDE RECORDS SUMMARY | 2024-04-26 07:54 | XMS_ITS | Encounter Summary ---
Author Organization [facility] Address [address] [place] [address] Phone Care Team Providers Care Vice President Of Talent Acquisition Name Role Phone Justen Gale MD Primary Care Provider [phone] Reason for Visit * Reason Onset Date Comments Referral 06/12/2019 Encounter Details Date Type Department Care Team (Late st Contact Info) Description 06/12/2019 Telephone [facility] [address] [place] [address] Justen Gale MD #[address] [address] Referral Social History Tobacco Use Types Packs/Day [...] done. She states to please cancel referral. EU THERAPIST * Telephone Encounter - Lisa Dallas - 06/12/2019 8:07 AM CST [id number] - EXTERNAL PODIATRY REFERRAL ?? We have been unable to contact patient by phone or mail in regards to referral. Thank you. [facility] EU THERAPIST documented in this encounter Plan of Treatment Upcoming Encounters Date Type Department Care Team (Late st Contact Info) Description 05/17/2024 2:45 PM MILIEU THERAPIST Office Visit [facility] - Endocrinology - [place] #2 [place] [address] Annel Rod MD #2 [facility] [address] [place] [address] documented as of this encounter Visit Diagnoses Not on filedocumented in this encounter Additional Health Concerns Assessment Noted Time PHQ-9 Depression Total Score: 0 09/08/19 19 1:00 PM CDT documented as of this encounter Care Teams Vice President Of Talent Acquisition Relationship Specialty Start Date End Date Justen Gale MD #2 [facility] [address] [place] [address] PCP - General Family Medicine 10/17/17 documented as of this encounter
--- OUTSIDE RECORDS SUMMARY | 2024-04-26 07:54 | XMS_ITS | Encounter Summary ---
Author Organization [facility] Address [address] [place] [address] Phone Care Team Providers Care Administrative Accountant Name Role Phone Justen Gale MD Primary Care Provider [phone] Reason for Visit * Reason Onset Date Comments Constipation 07/25/2019 Encounter Details Date Type Department Care Team (Late st Contact Info) Description 07/25/2019 Nurse Triage [facility] [address] [place], [place] [id number] Justen Gale MD #[address] [address] Constipation Social History Tobacco Use Types Packs/Day [...] a laxative, suppository, or enema Protocols used: [id number] documented in this encounter Plan of Treatment Upcoming Encounters Date Type Department Care Team (Late st Contact Info) Description 05/17/2024 2:45 PM RRT Office Visit [facility] - Endocrinology - [place] #2 [place] [address] Annel Rod MD [address] [address] documented as of this encounter Visit Diagnoses Not on filedocumented in this encounter Additional Health Concerns Assessment Noted Time PHQ-9 Depression Total Score: 0 09/08/19 19 1:00 PM CDT documented as of this encounter Care Teams Administrative Accountant Relationship Specialty Start Date End Date Justen Gale MD #2 [place] [id number] PCP - General Family Medicine 10/17/17 documented as of this encounter
--- OUTSIDE RECORDS SUMMARY | 2024-04-26 09:12 | XMS_ITS | Clinical Summary ---
Author Organization [facility] Address [address] [place] [address] Phone Care Team Providers Care Travel Writer Name Role Phone Justen Gale MD Primary Care Provider [phone] Allergies Active Allergy Reactions Criticality Noted Date [...] - 6.0 % 09/29/2017 10:28 AM CDT [facility] EST. AVG GLUCOSE, A1C 186 mg/dL 09/29/2017 10:28 AM CDT [facility] [facility] Blood Venipuncture / Unknown 09/28/2017 8:41 PM CDT 09/28/2017 8:46 PM CDT Narrative [facility] - 09/29/2017 10:28 AM CDT HGB A1C INTERPRETATION NORMAL: ? <5.7% PRE-DIABETES: 5.7 - 6.4% DIABETES: ? 6.5% OR GREATER Francisco Castaneda MD CHEMISTRY ORDERABLES [facility] [employer] [facility]# [id number] [address] [facility] [place] [address] * (ABNORMAL) LIPID PANEL (09/28/2017 8:41 PM CDT) CHOLESTEROL 174 <200 mg/dL 09/30/2017 2:45 AM CDT [facility] TRIGLYCERIDE 109 <150 mg/dL 09/30/2017 2:45 AM CDT [facility] HDL 45 40 - 59 mg/dL 09/30/2017 2:45 AM CDT [facility] LDL CALCULATED 107(H) <100 mg/dL 09/30/2017 2:45 AM CDT [facility] NON-HDL CHOLESTEROL 129 <130 mg/dL 09/30/2017 2:45 AM CDT [facility] Blood Venipuncture / Unknown 09/28/2017 8:41 PM CDT 09/28/2017 8:46 PM CDT Narrative [facility] - 09/30/2017 2:45 AM CDT TOTAL [...] Panels (NCEP/AMA) Francisco Castaneda MD CHEMISTRY ORDERABLES [facility] [employer] [facility] VINICIO# [id number] [address] [place] [place] [address] from Last 3 Months or Most Recently Relevant to Health Maintenance Advance Directives For more information, please contact: [phone] * Full Code (Latest Code Status on File) Date Activated Date Inactivated Comments 09/29/2017 7:45 AM 09/30/2017 9:14 PM * Full Code Date Activated Date Inactivated Comments 09/29/2017 1:25 AM 09/29/2017 7:45 AM Care Teams Travel Writer Relationship Specialty Start Date End Date Justen Gale MD [address] [facility] [address] [place] [address] PCP - General Cardiovascular Disease 09/14/17
--- OUTSIDE RECORDS SUMMARY | 2024-04-26 09:13 | XMS_ITS ---
Author Organization [facility] Address [address] [place] [address] Care Team Providers Care Boat Mechanic Name Role Phone Liu Jerez MD Unavailable [phone] Albert Corbin MD Unavailable [phone] Justen Gale MD Primary Care Provider Khris Arthur MD Unavailable [phone] Ko Melendez MD Unavailable John Paul Moyer MD Unavailable Annel Rod MD Unavailable Anali MARSHALL MD, Carlos M. Unavailable Active Problems Problem Noted Date Diagnosed Date Breast cancer 08/17/2023 Abdominal pain 08/14/2023 Bone disorder 08/02/2022 Cystitis 02/09/2022 Lab test positive for detection of COVID-19 viru s 02/09/2022 Chest pain 09/12/2021 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) 2021 exterminator termite (current) use 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 inhibitors 10/17/2019 Thyroid [...] use of insulin ([facility]) 10/23/2017 Assessment & Plan (10/23/2017 2:06 AM [...] (07/28/2017): Added automatically from request for surgery [id number] Pulmonary embolism 08/09/2016 Assessment & Plan (10/23/2017 [...] left female breast, unspecified estrogen receptor status (HCC)exterminator termite (current) use 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 inhibitorsBone disorder Treatment Medications No medications scheduled. Past Plans Oncology Supportive Care Plan Name Start Date Discontinue Date Treatment Medications Discontinue Reason Plan Provider Zoledronic Acid (ZOMETA) Infusion 01/05/2021 09/07/2021 No medications scheduled. Toxicity/Complic ation Khris Arthur MD Radiation Treatments * No radiation treatments are documented for this patient in [facility]. Treatments may have been administered in another system. Lifetime Dose Tracking * Chemical Lifetime Dose Automatic Entry Manual Entr y DLP 2,647 mGycm 2,647 mGycm 0 mGycm
--- OUTSIDE RECORDS SUMMARY | 2024-04-26 09:13 | XMS_ITS | Encounter Summary ---
Author Organization [facility] Address [address] [place] [address] Care Team Providers Care Computer Aided Design Technician Name Role Phone Justen Gale MD Primary Care Provider [phone] Reason for Visit * Reason Comments Shortness of Breath 62F ambulatory for c /o SOB and generalized body pain that started today. denies fever, +diarrhea, no urinary complaints. speaking in short sentences. * Auth/Cert Specialty Diagnoses / Procedures Referred By Elyssa benavides Referred To Contact Emergency Medicine [facility] Emergency Dept [address] [place] [address] Referral ID Status Reason Start Date Expiration Date Visits Re quested Visits Authorized [id number] 1 1 Encounter Details Date Type Department Care Team (Late st Contact Info) Description 09/14/2017 9:31 PM CDT - 09/14/2017 11:49 PM CDT Emergency [facility] Emergency Department [address] [place] [address] Lester Boss MD [address] [place] [address] Neuropathy (Primary Dx) Discharge Disposition: [...] sent through Care Everywhere. * Neuropathic Pain (Thai) documented in this encounter Medications at Time of Discharge Medication Sig Dispensed Refills Start Date End Date HYDROcodone-acetaminoph en (NORCO) 5-325 mg tablet Take 1 Tablet by mouth every 4 hours as needed for Pain, Break-Through. Max Daily Amount: 6 Tablets 12 Tablet 09/14/2017 lisinopril (PRINIVIL) 20 mg tablet Take 20 mg by mouth daily. 05/11/2012 oxybutynin chloride (DITROPAN) 5 mg tablet Take 5 mg by mouth daily. 12/12/2013 polyethylene glycol 3350 (MIRALAX) 17 gram/dose Powder Mix 1 scoop (17 g) in 8 oz of water and drink daily. 08/15/2017 rOPINIRole (REQUIP) 5 mg Tablet Take 5 mg by mouth daily at bedtime. 05/11/2012 pregabalin (LYRICA) 75 mg Capsule Take 1 [...] B, T, wrist flexion and extension, hand knot borer, Q, H, TA, FHL, and EHL bilaterally [...] markings, otherwise negative exam. Dictation location 1 [facility] EKG: Sinus rhythm, rate 83, normal axis, [...] Follow up: Justen Gale MD [address] [facility] [address] [facility] [address] Schedule an appointment as soon as possible for a visit in 1 day re-evaluation and further treatment DISCHARGED HOME IN STABLE CONDITION. ED Disposition ED Disposition Condition User Date/Time Comment Discharge Stable Lester Boss MD [facility] September 14, 2017 11:39 PM ATTESTATION STATEMENTS [...] ? Stationary ECG Study ? [facility] ? Test Date: ?09/14/2017 10:57 PM Pat Name: ? MOHSEN MARQUES ?Department: ?? 40 ?Room: ? Gender: ? F ?Primary Counselor: ?? spiek2 : ?1955 ? Requested By: ?? Order Number: [id number] ?Reading MD: ?? Justen Hampton ? Measurements Intervals ?[place] ? Rate: ? 83 ? P: ?33 WV: ? 127 ?QRS: ?5 QRSD: ? 96 ? T: ?52 QT: ? 373 ? QTc: ?439 ? Interpretive Statements ? Sinus rhythm Abnormal R-wave progression, early transition Nonspecific T wave abnormality Electronically Signed On 09-15-2017 22:47:20 CDT by Justen Hampton Procedure Note Provider, Historical - 06/30/2021 Stationary ECG Study [facility] Test Date: 09/14/2017 10:57 PM Pat Name: MOHSEN MARQUES Department: 40 Room: Gender: F Primary Counselor: smita : 1955 Requested By: Order Number: [id number] Reading MD: Justen Hampton Measurements Intervals [place] Rate: 83 P: 33 WV: 127 QRS: 5 QRSD: 96 T: 52 QT: 373 QTc: 439 Interpretive Statements Sinus rhythm Abnormal R-wave progression, early transition Nonspecific T wave abnormality Electronically Signed On 09-15-2017 22:47:20 CDT by Justen Hampton Lester Boss MD ECG ORDERABLES INTERFACE SYSTEM Refer to clinic/hospital department * (ABNORMAL) COMPREHENSIVE METABOLIC PANEL (09/14/2017 10:20 PM CDT) SODIUM 139 136 - 145 mmol/L 09/14/2017 11:10 PM CDT [facility] - [facility] POTASSIUM 4.4 3.5 - 5.0 mmol/L 09/14/2017 11:10 PM CDT [facility] CHLORIDE 101 98 - 107 mmol/L 09/14/2017 11:10 PM CDT [facility] CO2 28 22 - 29 mmol/L 09/14/2017 11:10 PM CDT [facility] CALCIUM 9.6 8.6 - 10.2 mg/dL 09/14/2017 11:10 PM CDT [facility] BUN 16 8 - 23 mg/dL 09/14/2017 11:10 PM CDT [facility] CREATININE 0.80 0.51 - 0.95 mg/dL 09/14/2017 11:10 PM CDT [facility] GLUCOSE 151(H) 74 - 99 mg/dL 09/14/2017 11:10 PM CDT [facility] TOTAL PROTEIN 7.9 6.7 - 8.6 g/dL 09/14/2017 11:10 PM CDT [facility] ALBUMIN 3.6 3.5 - 5.2 g/dL 09/14/2017 11:10 PM CDT [facility] - [facility] BILIRUBIN TOTAL 0.3 0.2 - 1.1 mg/dL 09/14/2017 11:10 PM CDT [facility] ALKALINE PHOSPHATASE 78 35 - 104 U/L 09/14/2017 11:10 PM [facility] AST 18 <33 U/L 09/14/2017 11:10 PM T [facility] ALT 15 <34 U/L 09/14/2017 11:10 PM [facility] GFR >60 >=60 mL/min/1.7 3 sq meter 09/14/2017 11:10 PM T [facility] LABORATORY [facility] Comment: eGFR has not been validated [...] 3 sq meter 09/14/2017 11:10 PM CDT [facility] ANION GAP 10 8 - 16 mmol/L 09/14/2017 11:10 PM [facility] Blood Venipuncture / Unknown 09/14/2017 10:20 PM CDT 09/14/2017 10:38 PM CDT Narrative [facility] - 09/14/2017 11:10 PM CDT Samples containing indocyanine green cause interferences on Total and/or Direct Bilirubin and must not be measured. Lester Boss MD CHEMISTRY ORDERABLES [facility]# [id number] [address] [place] [address] * D-DIMER (09/14/2017 10:20 PM CDT) D-DIMER QUANT <0.27 <0.42 ug/mL FEU 09/14/2017 11:34 PM CDT [employer] [facility] SERVICES [facility] Comment: The DIC reference range is not [...] CDT Lester Boss MD HEMATOLOGY ORDERABLE S [facility] LABORATORY SERVICES [facility] CLIA# [id number] [address] [place] [address] * (ABNORMAL) CBC WITH DIFFERENTIAL (09/14/2017 10:20 PM CDT) WBC 10.9(H) 4.0 - 9.8 K/uL 09/14/2017 10:46 PM CDT [employer] [facility]ORATORY SERVICES [facility] RBC 4.09 3.90 - 4.90 M/uL 09/14/2017 10:46 PM CDT [employer] LABORATORY SERVICES [facility] HEMOGLOBIN 11.2(L) 11.8 - 14.8 g/dL 09/14/2017 10:46 PM CDT [employer] LABORATORY SERVICES [facility] HEMATOCRIT 35.7 35.5 - 44.0 % 09/14/2017 10:46 PM CDT [facility] MCV 87.3 82.0 - 99.0 fL 09/14/2017 10:46 PM CDT [employer] [facility]ORATORY SERVICES [facility] MCH 27.4 27.2 - 32.6 pg 09/14/2017 10:46 PM CDT [facility] MCHC 31.4(L) 31.5 - 35.5 g/dL 09/14/2017 10:46 PM CDT [facility] - [facility] RDW 15.0(H) 11.5 - 14.5 % 09/14/2017 10:46 PM T [facility] - . [facility] RDW-STDEV 47.8 37.1 - 48.7 fL 09/14/2017 10:46 PM [facility] - [facility] PLATELETS 315 140 - 350 K/uL 09/14/2017 10:46 PM [employer] [facility] - [facility] MPV 9.5 9.3 - 12.4 fL 09/14/2017 10:46 PM T [facility] - . [facility] NEUTROPHILS 65 % 09/14/2017 10:46 PM T [facility] - [facility] LYMPHOCYTES 22 % 09/14/2017 10:46 PM [employer] [facility] - . [facility] MONOCYTES 9 % 09/14/2017 10:46 PM [employer] [facility] - . [facility] EOSINOPHILS 3 % 09/14/2017 10:46 PM [employer] [facility] - . [facility] BASOPHILS 0 % 09/14/2017 10:46 PM [employer] [facility] - . [facility] IMMATURE GRANULOCYTES 1 % 09/14/2017 10:46 PM [employer] [facility] - [facility] Comment:IG (Immature Granulo cyte) count includes Metamyelocytes, Myelocytes, and Promyelocytes NEUTROPHIL ABSOLUTE 7.09(H) 1.90 - 7.00 K/uL 09/14/2017 10:46 PM [employer] [facility] - [facility] LYMPHOCYTE ABSOLUTE 2.42 0.70 - 4.50 K/uL 09/14/2017 10:46 PM [employer] [facility] - . [facility] MONOCYTE ABSOLUTE 0.93 0.10 - 1.30 K/uL 09/14/2017 10:46 PM [employer] [facility] - . [facility] EOSINOPHIL ABSOLUTE 0.32 0.00 - 0.70 K/uL 09/14/2017 10:46 PM [employer] [facility] - . [facility] BASOPHILS ABSOLUTE 0.04 0.00 - 0.20 K/uL 09/14/2017 10:46 PM [employer] [facility] - . [facility] IMMATURE GRANULOCYTES ABSOLUTE 0.06(H) 0.00 - 0.03 K/uL 09/14/2017 10:46 PM T [facility] SERVICES - [facility] Blood Venipuncture / Unknown 09/14/2017 10:20 PM CDT 09/14/2017 10:38 PM CDT Lester Boss MD HEMATOLOGY ORDERABLE S [facility] LABORATORY [facility] CLIA# [id number] [address] [place] [address] * XR CHEST PA AND LATERAL 2 VW (09/14/2017 10:15 PM CDT) Anatomical Region Laterality Modality Chest Computed Radiogr aphy 09/14/2017 10:1 5 PM CDT Impressions 09/14/2017 11:15 PM CDT IMPRESSION: Prominence of interstitial lung markings, otherwise negative exam. Dictation location 1 [facility] Narrative 09/14/2017 11:15 PM CDT CHEST 2 [...] markings, otherwise negative exam. Dictation location 1 [facility] Lester Boss MD DIAGNOSTIC IMAGING O RDERABLES [...] RN) documented in this encounter Care Teams Computer Aided Design Technician Relationship Specialty Start Date End Date Justen Gale MD [address] [facility] [address] [place] [id number] PCP - General Cardiovascular Disease 09/14/17 documented as of this encounter
--- OUTSIDE RECORDS SUMMARY | 2024-04-26 09:13 | XMS_ITS | Encounter Summary ---
Author Organization [facility] Healthcare Address [address] [place] [address] Care Team Providers Care Gill Net Stringer Name Role Phone Liu Jerez MD Unavailable Albert Corbin MD Unavailable [phone] Justen Gale MD Primary Care Provider [phone] Khris Arthur MD Unavailable [phone] Ko Melendez MD Unavailable [phone] John Paul Moyer MD Unavailable Annel Rod MD Unavailable Anali MARSHALL MD, Carlos M. Unavailable [phone] Reason for Visit * Reason Comments Generalized Body Aches Encounter Details Date Type Department Care Team (Late st Contact Info) Description 02/15/2024 2:22 AM CDT - 02/15/2024 5:58 AM CDT Emergency [facility] Emergency Department [address] [place] [id number] [place] [address] [place] [address] [place] [address] Myalgia (Primary Dx) Discharge Disposition: Discharge to home or self care Social History Tobacco Use Types Packs/Day Years Used Date Smoking Tobacco: Former Smokeless Tobacco: Never Comments:remote tobacco use Alcohol Use Standard Drinks/Week Comments No 0 (1 standard drink = 0.6 oz pur e alcohol) [facility] Utilities Answer Date Recorded In the past 12 months has e [employer], gas, oil, or water company threatened to [...] answer 08/15/2023 How often do you attend [facility] or confucianist services? Patient unable to answer 08/15/2023 Do you belong to any clubs o r organizations such as cheondoism groups, unions, fraternal or athletic groups, or [...] slept in a residential (including now)? No 08/15/2023 Personal Safety Answer Date Recorded Have you ever been in or are you currently in a harmful physical or emotional relationship or is someone making you feel afraid or unsafe? 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 * Musculoskeletal Pain (AfterCare(R) Instructions(ER/ED)) (Ethiopian) documented in this encounter Medications at Time of Discharge albuterol HFA (PROVENTIL HFA,VENTOLIN HFA,PROAIR HFA) 90 mcg/actuation inhaler Inhale 2 puffs every 6 (six) hours as needed for wheezing or shortness of breath 04/19/2021 BD Ultra-Fine Short Pen Needle 31 gauge x 5/16 needle USE 6 TIMES DAILY DIRECTED 06/24/2021 blood glucose diagnostic (AKTuch Ultra Test) strip 4 (four) times a [...] thyroid Thyroid disease DVT (deep venous thrombosis) (CMS/[facility]) (HCC) HX OTHER MEDICAL restless leg syndrome HX OTHER MEDICAL RLS Hypertension Hypertension Osteoarthritis osteoarthritis PE (pulmonary thromboembolism) (CMS/[facility]) ([facility]) Sleep apnea Past Surgical History: [...] 650 mg (650 mg oral Given 02/14/24 2545) morphine injection 8 mg (8 mg intravenous Given 02/15/24 1560) ondansetron (ZOFRAN) injection 4 mg (4 mg [...] - 5 /HPF Comment:Testing performed by : [address] [address] RBC, ur 3-5(A) 0 - 2 /HPF MARY JANE Comment:Testing performed by : [address] [address] Epithelial cells, squamous, ur 1-5 0 - 5 /HPF MARY JANE Comment:Testing performed by : [address], [place]., [address] Mucous, ur Present(A) MARY JANE Comment:Testing performed by : [address] [address] Hyaline casts, ur 1-5 0 - 10 /LPF MARY JANE Comment:Testing performed by : [address] [address] Culture Reflex Comment Reflex conditions for urine culture (WBC >10) not met. MARY JANE Comment:Testing performed by : [address] [address] Urine, in and out catheter 02/15/2024 1:19 AM CDT 02/15/2024 1:23 AM CDT us Jeremías Smith MD LAB URINE ORDERABLES Final Res ult MARY JANE [address] [facility] [place] [address] * (ABNORMAL) Urinalysis reflex to microscopic and culture Urine, in and out catheter (02/15/2024 1:19AM CDT) Color, ur Yellow Yellow Comment:Testing performed by : [address] [address] Clarity, ur Clear Clear MARY JANE Comment:Testing performed by : [address] [address] Specific gravity, ur 1.023 1.003 - 1.030 MARY JANE Comment:Testing performed by : [facility], [address] [place] [address], [place]., [address] pH, urine 5.5 MARY JANE Comment: Interpretive Data ? Urine pH is affected by diet, medications, systemic acid-base disturbances, and renal tubular function. ??pH may affect urinary stone formation. ??For example, urine pH below 6.0 may help reduce the tendency for calcium phosphate stones and pH greater than 6.0 may reduce the tendency for uric acid stone formation. Source: [facility] [employer] Current Interpretive Data was last revised on 2017 Testing performed by: [address], [place]., [address] Protein, ur ql Negative Negative MARY JANE Comment:Testing performed by : [address], [place]., [address] Glucose, ur ql Trace(A) Negative MARY JANE Comment:Testing performed by : [address], [place]., [address] Ketones, ur Negative Negative MARY JANE Comment:Testing performed by : [address], [place]., [address] Bilirubin, ur Negative Negative MARY JANE Comment:Testing performed by : [address], [place]., [address] Blood, ur 1+(A) Negative MARY JANE Comment:Testing performed by : [address], [place]., [address] Urobilinogen, ur <2.0 <2.0 mg/dL MARY JANE Comment:Testing performed by : [address] [address] Nitrite, ur Negative Negative MARY JANE Comment:Testing performed by : [address], [place]., [address] Leukocyte esterase, ur Negative Negative MARY JANE Comment:Testing performed by : [address] [address] UA reflex comment Reflex to microscopic UA will be performed. MARY JANE Comment:Testing performed by : [address], [place]., [address] Urine, in and out catheter 02/15/2024 1:19 AM CDT 02/15/2024 1:23 AM CDT us Jeremías Smith MD LAB MICROBIOLOGY - GENERAL ORD ERABLES Final Result Performing Organization Address [facility] Co de Phone Number MARY JANE [facility]0 [facility] [place] [address] * Creatine kinase (CK), total (02/15/2024 1:09 AM CDT) CK 137 30 - 200 Units/L Comment:Testing performed by : [facility], [address] [place] [address]., [address] Blood 02/15/2024 1:09 AM CDT 02/15/2024 4:55 AM CDT us Jeremías Smith MD LAB BLOOD ORDERABLES Final Res ult Performing Organization Address [facility] Co de Phone Number MARY JANE [facility]0 [facility] [place] [address] * eGFR (02/15/2024 1:09 AM CDT) eGFR [...] was last reviewed 2021. Testing performed by: [address] [address] Blood 02/15/2024 1:09 AM CDT 02/15/2024 1:15 AM CDT us Jeremías Smith MD LAB BLOOD ORDERABLES Final Res ult MARY JANE [address] [facility] [place] [address] * (ABNORMAL) Comprehensive metabolic panel (02/15/2024 1:09 AM CDT) Sodium 137 135 - 145 mmol/L Comment:Testing performed by : [address] [address] Potassium, pl 4.3 3.3 - 4.9 mmol/L MARY JANE Comment:Testing performed by : [address] [address] Chloride 100 97 - 110 mmol/L MARY JANE Comment:Testing performed by : [address] [address] CO2 29 22 - 32 mmol/L MARY JANE Comment:Testing performed by : [address] [address] Anion gap 8 2 - 15 mmol/L MARY JANE Comment:Testing performed by : [address] [address] BUN 22 6 - 25 mg/dL MARY JANE Comment:Testing performed by : [address] [address] Creatinine 0.60 0.60 - 1.10 mg/dL MARY JANE Comment:Testing performed by : [address] [address] Glucose 231(H) 70 - 199 mg/dL MARY [...] was last revised 2022. Testing performed by: [address] [address] Calcium 10.3 8.5 - 10.3 mg/dL MARY JANE Comment:Testing performed by : [address] [address] Bilirubin, total 0.4 0.1 - 1.2 mg/dL MARY JANE Comment:Testing performed by : [address] [address] Protein, pl 8.2 6.5 - 8.5 g/dL MARY JANE Comment:Testing performed by : [address] [address] Albumin 3.9 3.5 - 5.0 g/dL MARY JANE Comment:Testing performed by : [address] [address] Alk phos 74 40 - 130 Units/L MARY JANE Comment:Testing performed by : [address] [address] ALT 18 7 - 45 Units/L MARY JANE Comment:Testing performed by : [address] [address] AST 16 10 - 45 Units/L MARY JANE Comment:Testing performed by : [address] [address] Blood 02/15/2024 1:09 AM CDT 02/15/2024 1:15 AM CDT Jeremías Smith MD LAB BLOOD ORDERABLES Final Res ult MARY JANE [address] [facility] [place] [address] * Differential, auto (02/14/2024 11:43 PM CDT) Neutrophil abs 6.4 1.5 - 6.5 K/cumm Comment:Testing performed by : [address] [address] Imm gran abs 0.1 0.0 - 0.1 K/cumm MARY JANE Comment:Testing performed by : [address] [address] Lymphocyte abs 2.5 0.8 - 3.3 K/cumm MARY JANE Comment:Testing performed by : [address] [address] Monocyte abs 0.7 0.2 - 0.8 K/cumm MARY JANE Comment:Testing performed by : [address] [address] Eosinophil abs 0.3 0.0 - 0.5 K/cumm MARY JANE Comment:Testing performed by : [address] [address] Basophil abs 0.0 0.0 - 0.1 K/cumm MARY JANE Comment:Testing performed by : [address] [address] Neutrophil pct 63.7 % MARY JANE Comment: Interpretive Data Percent cell count reference ranges are not reported, since discordance with absolute values may lead to misinterpretation of CBC data. Current Interpretive Data was last revised on 2017. Testing performed by: [address] [address] Imm gran pct 0.5 % MARY JANE Comment: Interpretive Data Percent cell count reference ranges are not reported, since discordance with absolute values may lead to misinterpretation of CBC data. Current Interpretive Data was last revised on 2017. Testing performed by: [address] [address] Lymphocyte pct 24.7 % MARY JANE Comment: Interpretive Data Percent cell count reference ranges are not reported, since discordance with absolute values may lead to misinterpretation of CBC data. Current Interpretive Data was last revised on 2017. Testing performed by: [address] [address] Monocyte pct 7.4 % [facility] Comment: Interpretive Data Percent cell count reference ranges are not reported, since discordance with absolute values may lead to misinterpretation of CBC data. Current Interpretive Data was last revised on 2017. Testing performed by: [address] [address] Eosinophil pct 3.3 % [facility] Comment: Interpretive Data Percent cell count reference ranges are not reported, since discordance with absolute values may lead to misinterpretation of CBC data. Current Interpretive Data was last revised on 2017. Testing performed by: [address] [address] Basophil pct 0.4 % MARY JANE Comment: Interpretive Data Percent cell count reference ranges are not reported, since discordance with absolute values may lead to misinterpretation of CBC data. Current Interpretive Data was last revised on 2017. Testing performed by: [address] [address] Blood 02/14/2024 11:4 3 PM CDT 02/14/2024 11:49 PM CDT us Jeremías Smith MD LAB BLOOD ORDERABLES Final Res ult Performing Organization Address City/State/[facility] Co de Phone Number MARY JANE [address] [facility] Department of Laboratories [place], [place] [id number] * aPTT (02/14/2024 11:43 PM CDT) aPTT 31 22 - 37 sec Comment: Interpretive data aPTT test has not been evaluated for monitoring heparin therapy. The anti-Xa is the preferred test. Current interpretive data was last revised on 2019. Testing performed by: [address] [address] Blood 02/14/2024 11:4 3 PM CDT 02/14/2024 11:49 PM CDT us Jeremías Smith MD LAB BLOOD ORDERABLES Final Res ult Performing Organization Address City/[facility]/ZIP Co de Phone Number MARY JANE [facility]0 [facility] [place] [address] * (ABNORMAL) Protime-INR (02/14/2024 11:43 PM CDT) PT 16.9(H) 12.0 - 14.6 sec Comment: Ref Range High Testing performed by: [address] [address] INR 1.4(H) 0.9 - 1.2 MARY JANE Comment: Ref Range High Interpretive data Oral anticoagulant therapeutic ranges: Venous thromboembolism prophylaxis or treatment: 2.0-3.0 CARDIOLOGY Standard range: 2.0-3.0 High-intensity range: 2.5-3.5 Refer to indication-specific guidelines for appropriate target ranges for prosthetic heart valve replacement. Current interpretive data was last revised on 2019. Testing performed by: [address] [address] Blood 02/14/2024 11:4 3 PM CDT 02/14/2024 11:49 PM CDT us Jeremías Smith MD LAB BLOOD ORDERABLES Final Res ult Performing Organization Address City/[facility] Co de Phone Number MARY JANE [address] [place] [address] * Influenza A/B, RSV, and COVID-19 PCR Nasopharyngeal (02/14/2024 11:43 PM CDT) Pathologist [facility] COVID-19 RNA Negative Negative Comment:Testing performed by : [address] [address] Influenza A RNA Negative Negative MARY JANE Comment:Testing performed by : [address] [address] Influenza B RNA Negative Negative MARY JANE Comment:Testing performed by : [address] [address] RSV RNA Negative Negative MARY JANE PHAM Comment: Interpretive data: Testing performed by [facility]. This test is performed using the [employer] Custom Corn[employer] Xpert Xpress CoV-2/Flu/RSV plus assay. This is a multiplex, real-time reverse transcriptase PCR assay intended for the qualitative detection of nucleic acid from SARS-CoV-2, influenza A, influenza B, and respiratory syncytial virus. This assay has been cleared by the [place] Food and Drug administration. The performance characteristics have been verified by the [facility]. ??Results must be considered in the clinical context, and a negative result does not rule out infection. Interpretive Data last revised 2023 Testing performed by: [address] [address] Nasopharyngeal 02/14/2024 11 :43 PM CDT 02/14/2024 11:49 PM CDT Narrative MARY JANE - 02/15/2024 12:35 AM CDT Is the Patient experiencing symptoms consistent with COVID?->Yes us Jeremías Smith MD LAB MICROBIOLOGY - GENERAL ORD ERABLES Final Result MARY JANE [address] [facility] [place] [address] * (ABNORMAL) CBC with auto differential (02/14/2024 11:43 PM CDT) [facility] WBC 10.0(H) 3.8 - 9.9 K/cumm Comment:Testing performed by : [address] [address] Hgb 13.7 11.9 - 15.5 g/dL MARY JANE PHAM Comment:Testing performed by : [address] [address] Hct 42.4 35.6 - 45.5 % MARY JANE PHAM Comment:Testing performed by : [address] [address] Plt 273 150 - 400 K/cumm MARY JANE PHAM Comment:Testing performed by : [address] [address] MPV 10.3 9.1 - 12.3 fL MARY JANE PHAM Comment:Testing performed by : [address] [address] RBC 4.73 3.90 - 5.20 M/cumm MARY JANE PHAM Comment:Testing performed by : [address] [address] MCV 89.6 81.3 - 96.4 fL MARY JANE Comment:Testing performed by : [address] [address] MCH 29.0 27.1 - 33.3 pg MARY JANE Comment:Testing performed by : [address] [address] MCHC 32.3 32.3 - 35.7 g/dL MARY JANE Comment:Testing performed by : [address] [address] RDW CV 13.8 11.1 - 14.9 % MARY JANE Comment:Testing performed by : [address] [address] RDW SD 45.0 35.7 - 48.1 fL MARY JANE Comment:Testing performed by : [address] [address] NRBC abs 0.00 0.00 - 0.01 K/cumm MARY JANE PHAM Comment:Testing performed by : [address] [address] Blood 02/14/2024 11:4 3 PM CDT 02/14/2024 11:49 PM CDT us Jeremías Smith MD LAB BLOOD ORDERABLES Final Res ult MARY JANE [address] [facility] [place] [address] documented in this encounter Visit [...] RN) documented in this encounter Care Teams Gill Net Stringer Relationship Specialty Start Date End Date Justen Gale MD [address] [address] PCP - General 10/09/17 Liu Jerez MD Consulting Physician Gastroenterology 07/28/17 [place] [address] [facility] [address] [place] [address] Consulting Physician Pulmonary Disease 08/03/17 Khris Arthur MD [address] [facility] [address] [place] [address] Medical Oncologist/[place] Medical Oncology 10/23/17 [place] [address] [facility] [address] [place] [address] Surgeon Orthopedic Surgery 10/23/17 [place] [address] [facility] [address] [place] [address] Consulting Physician Pain Management 10/23/17 [place] [address] [facility] [address] [place] [address] Referring Physician General Surgery 01/26/18 [place] [address] [facility] [address] [place] [address] Consulting Physician Neurology 01/26/18 documented as of this encounter
--- OUTSIDE RECORDS SUMMARY | 2024-04-26 09:13 | XMS_ITS | Encounter Summary ---
Author Organization [facility] Address [address] [place] [address] Phone Care Team Providers Care Manufacturing Applications Engineer Name Role Phone Liu Jerez MD Unavailable Albert Corbin MD Unavailable Justen Gale MD Primary Care Provider Khris Arthur MD Unavailable [phone] Ko Melendez MD Unavailable [phone] John Paul Moyer MD Unavailable Annel Rod MD Unavailable Anali MARSHALL MD, Carlos M. Unavailable [phone] Encounter Details Date Type Department Care Team (Late st Contact Info) Description 10/24/2023 Orders Only [facility] Oncology [address] [facility] Medicine 7th [place] [address] [place] [address] Radha Mcgrath RN Social History Tobacco Use Types Packs/Day Years Used Date Smoking Tobacco: Former Smokeless Tobacco: Never Comments:remote tobacco use Alcohol Use Standard Drinks/Week Comments No 0 (1 standard drink = 0.6 oz pur e alcohol) [facility] Utilities Answer Date Recorded In the past [...] often do you attend chur ch or samaritan services? Patient unable to answer 08/15/2023 Do you belong to any clubs o r organizations such as mosque groups, unions, fraternal or athletic groups, or [...] slept in a correction (including now)? No 08/15/2023 Personal Safety Answer Date Recorded Have you ever been in or are you currently in a harmful physical or emotional relationship or is someone making you feel afraid or unsafe? 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 Gender Identity Not on file Sexual Orientation Not on file documented as of this encounter Plan of Treatment Not on file documented as of this encounter Visit Diagnoses Not on filedocumented in this encounter Care Teams Manufacturing Applications Engineer Relationship Specialty Start Date End Date Justen Gale MD 2 [facility] [address] [place] [address] PCP - General 10/09/17 Liu Jerez MD Consulting Physician Gastroenterology 07/28/17 [place] [address] [facility] [address] [place] [address] Consulting Physician Pulmonary Disease 08/03/17 [place] [address] [place] [address] [place] [address] Medical Oncologist/Hospital Intern Medical Oncology 10/23/17 [place] [address] [facility] [address] [place] [address] Surgeon Orthopedic Surgery 10/23/17 [place] [address] [address] Consulting Physician Pain Management 10/23/17 [place] [address] [address] Referring Physician General Surgery 01/26/18 [place] [address] [facility] [address] [place] [address] Consulting Physician Neurology 01/26/18 documented as of this encounter
--- OUTSIDE RECORDS SUMMARY | 2024-04-26 09:13 | XMS_ITS | Encounter Summary ---
Author Organization [facility] Address [address] [place] [address] Care Team Providers Care Drilling Machine Operator Name Role Phone Liu Jerez MD Unavailable [phone] Albert Corbin MD Unavailable Justen Gale MD Primary Care Provider Khris Arthur MD Unavailable [phone] Ko Melendez MD Unavailable [phone] John Paul Moyer MD Unavailable [phone] Annel Rod MD Unavailable Anali MARSHALL MD, Carlos M. Unavailable Reason for Visit * Reason Comments Back Pain Encounter Details Date Type Department Care Team (Late st Contact Info) Description 09/18/2023 5:48 PM CDT - 09/18/2023 7:26 PM CDT Emergency [facility] Emergency Department [address] [place] [id number] Chronic left-sided low back pain with left-sided sciatica (Primary Dx); Left hip pain Discharge Disposition: Discharge to home or self care Social History Tobacco Use Types Packs/Day Years Used Date Smoking Tobacco: Former Smokeless Tobacco: Never Comments:remote tobacco use Alcohol Use Standard Drinks/Week Comments No 0 (1 standard drink = 0.6 oz pur e alcohol) [facility] Utilities Answer Date Recorded In the [...] often do you attend chur ch or pentecostalism services? Patient unable to answer 08/15/2023 Do [...] slept in a snf (including now)? No 08/15/2023 Personal Safety Answer Date Recorded Have you ever been in or are you currently in a harmful physical or emotional relationship or is someone making you feel afraid or unsafe? 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 Gender Identity Not on file [...] TIMES DAILY DIRECTED 06/24/2021 blood glucose diagnostic (Finovera Ultra Test) strip 4 (four) times a [...] thyroid Thyroid disease DVT (deep venous thrombosis) ([facility]) ([facility]) HX OTHER MEDICAL restless leg syndrome HX OTHER MEDICAL RLS Hypertension Hypertension Osteoarthritis osteoarthritis PE (pulmonary thromboembolism) ([facility]) ([facility]) Sleep apnea PAST SURGICAL [...] patch, 1 patch, transdermal, Daily, Blaze Armenta, VISE HAND, 1 patch at 09/18/231833 Current Outpatient Medications: [...] Use: Not At Risk (06/16/2023) Received from [employer], [facility] [employer] AUDIT-C Frequency of Alcohol Consumption: Never Average [...] hernia repair. IMPRESSION: No acute abnormality identified. Ngfz-dy-nlunsniyyyeoinakap central canal and neural foraminal narrowing in the lower lumbar spine. Chronic findingsas above THIS IS AN ELECTRONICALLY VERIFIED FINAL REPORT 09/18/2023 6:36 PM - Electronically signed by Juve Gallegos M.D. AR: VALERY Report ID: [id number] Reading Location: [id number] [place] Thyroid Result Date: 09/11/2023 Narrative: EXAM [...] Maykel Montano M.D. AM: AM Report ID: [id number] Reading Location: [place] [address] Impression: IMPRESSION: 1. 1.1 cm TI-RADS 4 [...] Giovanni Tavares M.D. AG: BAKARI Report ID: [id number] Reading Location: [id number] ED COURSE/MEDICAL DECISION MAKING ED Course as [...] 2100 This examination was transcribed using the [employer] voice recognition system without human steam distribution supervisor. In an effort to expedite patient care, this report has not been adjusted for typographical, grammatical, and syntax by a trained medical secretary receptionist. Blaze Armenta NP 09/18/231933 Cosigned by Ryan [...] repair. ?? IMPRESSION: No acute abnormality identified. ??Btor-ih-riezxzaa multilevel central canal and neural foraminal narrowing in the lower lumbar spine. ?? Chronic findings as above ?? THIS IS AN ELECTRONICALLY VERIFIED FINAL REPORT 09/18/2023 6:36 PM - Electronically signed by ??Juve Gallegos M.D. AR: VALERY D: ??09/18/2023 6:36 PM T: ??09/18/2023 6:36 PM Report ID: [id number] Reading Location: ??[id number] Procedure Note Juve Gallegos MD - 09/18/2023 [...] hernia repair. IMPRESSION: No acute abnormality identified. Coaf-rj-sbwfxiil multilevel central canal and neural foraminal narrowing in the lower lumbar spine. Chronic findings as above THIS IS AN ELECTRONICALLY VERIFIED FINAL REPORT 09/18/2023 6:36 PM - Electronically signed by Juve Gallegos M.D. AR: VALERY Report ID: [id number] Reading Location: [place] [address] Blaze Armenta NP IM CT PROCEDURES Final [...] discontinued) documented in this encounter Care Teams Drilling Machine Operator Relationship Specialty Start Date End Date Justen Gale MD [address] [place] [id number] PCP - General 10/09/17 Liu Jerez MD Consulting Physician Gastroenterology 07/28/17 [place] [address] [facility] [address] [place] [address] Consulting Physician Pulmonary Disease 08/03/17 Khris Arthur MD [address] [facility] [address] [place] [address] Medical Oncologist/Crystalizer Medical Oncology 10/23/17 [place] [address] [facility] [address] [place] [address] Surgeon Orthopedic Surgery 10/23/17 [place] [address] [facility] [address] [place] [address] Consulting Physician Pain Management 10/23/17 [place] [address] [facility] [address] [place] [address] Referring Physician General Surgery 01/26/18 [place] [address] [facility] [address] [place] [address] Consulting Physician Neurology 01/26/18 documented as of this encounter
--- OUTSIDE RECORDS SUMMARY | 2024-04-26 09:13 | XMS_ITS | Encounter Summary ---
Author Organization [facility] Address [address] [place] [address] Phone Care Team Providers Care Software Development Specialist Name Role Phone Liu Jerez MD Unavailable [phone] Albert Corbin MD Unavailable Justen Gale MD Primary Care Provider Khris Arthur MD Unavailable [phone] Ko Melendez MD Unavailable [phone] John Paul Moyer MD Unavailable Annel Rod MD Unavailable Anali MARSHALL MD, Carlos M. Unavailable Reason for Visit * Reason Onset Date Comments Scheduling Appointments 10/24/2023 Encounter Details Date Type Department Care Team (Late st Contact Info) Description 10/24/[address] [facility] Oncology [address] [facility] 7th [place] [address] [place] [address] Ricarda Wilson, [facility] Scheduling Appointments Social History Tobacco Use Types Packs/Day Years Used Date Smoking Tobacco: Former Smokeless Tobacco: Never Comments:remote tobacco use Alcohol Use Standard Drinks/Week Comments No 0 (1 standard drink = 0.6 oz pur e alcohol) [facility] Utilities Answer Date Recorded In the past [...] often do you attend chur ch or mormonism services? 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 Gender Identity Not on file Sexual [...] on filedocumented in this encounter Care Teams Software Development Specialist Relationship Specialty Start Date End Date Justen Gale MD [address] [address] PCP - General 10/09/17 Liu Jerez MD Consulting Physician Gastroenterology 07/28/17 [place] [address] [facility] [address] [place] [address] Consulting Physician Pulmonary Disease 08/03/17 Khris Arthur MD [address] [facility] [address] [place] [address] Medical Oncologist/Clinical Informatics Specialist Medical Oncology 10/23/17 [place] [address] [facility] [address] [place] [address] Surgeon Orthopedic Surgery 10/23/17 [place] [address] [facility] [address] [place] [address] Consulting Physician Pain Management 10/23/17 [place] [address] [facility] [address] [place] [address] Referring Physician General Surgery 01/26/18 [place] [address] [facility] [address] [place] [address] Consulting Physician Neurology 01/26/18 documented as of this encounter
--- OUTSIDE RECORDS SUMMARY | 2024-04-26 09:13 | XMS_ITS | Encounter Summary ---
Author Organization [facility] Address [address] [place] [address] Phone Care Team Providers Care Soda Fountain Clerk Name Role Phone Liu Jerez MD Unavailable Albert Corbin MD Unavailable Justen Gale MD Primary Care Provider Khris Arthur MD Unavailable [phone] Ko Melendez MD Unavailable John Paul Moyer MD Unavailable Annel Rod MD Unavailable Anali MARSHALL MD, Carlos M. Unavailable [phone] Reason for Referral * Consultation (Routine) - Pending Review Specialty Diagnoses / Procedures Referred By Contac t Referred To Contact Genetics / Pediatric Genetics Diagnoses Malignant neoplasm of upper-inner quadrant of left breast in female, estrogen receptor positive (HCC) Darcy Goel, CURTIS [address] [place] [address] Phone: tel: fax: [facility] (All Locations) Referral ID Status Reason Start Date Expiration Date Visits Requested Visits Authorized [id number] Pending Review Specialty Services Required 11/21/2023 12/20/2024 1 1 Question Answer Please select the performing region: [facility] (All Locations) [167] # of visits: 1 [...] estrogen receptor status (HCC) Justen Gale MD [address] [place] [address] Phone: tel: fax: Khris Arthur MD Phone: tel: fax: Referral ID Status Reason Start Date Expiration Date V isits Requested Visits Authorized [id number] Closed Specialty Services Required 10/18/2019 04/23/2024 99 99 Encounter Details Date Type Department Care Team (Late st Contact Info) Description 11/21/2023 2:30 PM CDT Office Visit [facility] Oncology [address] [facility] 7th [place] [address] [place] [address] Khris Arthur MD [address] [facility] [address] [place] [address] Malignant neoplasm of upper-inner quadrant of left breast in female, estrogen receptor positive (HCC) (Primary Dx) Social History Tobacco Use Types Packs/Day Years Used Date Smoking Tobacco: Former Smokeless Tobacco: Never Comments:remote tobacco use Alcohol Use Standard Drinks/Week Comments No 0 (1 standard drink = 0.6 oz pur e alcohol) [facility] Utilities Answer Date Recorded In the past 12 months has e [employer], gas, oil, or water [employer] threatened to shut off services in your [...] any clubs o r organizations such as spiritism groups, unions, fraternal or athletic groups, or [...] on file 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 Heaven Mercedes) to see if thatis something they are eligible for or interested in: [phone]. This is the main scheduling hub.When they [...] physician for routine care. You can call [phone] for [facility] Doctors. Get an annual influenza vaccine (flu [...] group. Talk with a professional, either an Furniture Sander or mental health professional. Your oncology team [...] with a mental health professional or a [facility] Counselor. [facility] counseling [phone]. There are many online websites which offer resources for spiritual, emotional, and support networksfor breast cancer survivors: [employer].Flimmer and [employer].org are a few. [employer] for Cancer Research's iTHRIVE plan is designed to help you heal from cancer treatment, reduce risk of recurrence, and achieve optimal wellness. This is an engaging and easy to use,online platform to create personalized lifestyle-based wellness plans for cancer survivors. https:// www.aicr.org/patients-survivors/ithrive/ Sexual Health: Women should avoid for the first year after completing treatment. Discuss reliable forms of avoiding with your healthcare provider/offset printer. If you are a woman planning to [...] you to a specialist. There are several yhqx-ewd-tlbdwkl vaginal moisturizers that can be used, such [...] back. Resources you may be interested in: [facility] Center A National Cancer Gill [facility] http://www.[facility]/ Cancer Resources: www.cancer.net Welsh Disabilities Act: The U.S. Department of Justice provides information about the Americans with Disabilities Act (ADA). Toll free number http://www.ada.gov/ Managing your weight after a cancer diagnosis: http://www.cancer.net/sites/cancer.net/files/weight_after_cancer_diagnosis.pdf National Coalition for Cancer Survivorship: http://www.canceradvocacy.org/ Welsh Cancer Society Cancer Survivors Network: http://csn.cancer.org/ Springboard Beyond Cancer: https://survivorship.cancer.gov/ an online tool for cancer survivors andcaregivers created by the Welsh Cancer Society and the National Cancer Gill. It provides: Information on dealing with side effects from cancer and treatment Caregivers with support and resources Practical advice about talking to friends and family about cancer Questions to ask their health care team Help understanding their rights in the workplace CureSearch to end childhood cancer by driving targeted and innovative research with measurable results in an accelerated time frame. https://curesearch.org/Gwjv-Wixwwea-gk-Fkmbkxlzz-aey-Osqdxapzf-Cancer Please activate [employer] for online communication. If you are uncertain how to access please contactthe [facility] at: [phone] or [phone]. LIVE WELL! You can reach the office [...] in the left carcinoma were ER 8, AR 8, HER-2 negative. 3. Cytology on 07/21/2014 [...] Hypertension Osteoarthritis osteoarthritis PE (pulmonary thromboembolism) (CMS/HCC) ([facility]) Sleep apnea Past Surgical History: Procedure [...] Use: Not At Risk (06/16/2023) Received from [facility] [employer], [facility] [employer] AUDIT-C Frequency of Alcohol Consumption: Never Average [...] if interested. ROV in 1 year with [facility] chair. Encouraged to call in the interim with any questions or concerns. CLEOPATRA Blanc-C Nurse Practitioner [facility] In collaboration with Dr. Khris Arthur [...] 11/21/2023 documented in this encounter Care Teams Soda Fountain Clerk Relationship Specialty Start Date End Date Justen Gale MD 2 [facility] [address] [place] [address] PCP - General 10/09/17 Liu Jerez MD Consulting Physician Gastroenterology 07/28/17 [place] [address] [facility] [address] [place] [address] Consulting Physician Pulmonary Disease 08/03/17 Khris Arthur MD [address] [facility] [address] [place] [address] Medical Oncologist/Hot Tamale Worker Medical Oncology 10/23/17 [place] [address] [facility] [address] [place] [address] Surgeon Orthopedic Surgery 10/23/17 [place] [address] [facility] [address] [place] [address] Consulting Physician Pain Management 10/23/17 [place] [address] [facility] [address] [place] [address] Referring Physician General Surgery 01/26/18 [place] [address] [facility] [address] [place] [address] Consulting Physician Neurology 01/26/18 documented as of this encounter
--- OUTSIDE RECORDS SUMMARY | 2024-04-26 09:13 | XMS_ITS | Clinical Summary ---
Author Organization [facility] Address [address] [place] [id number] Care Team Providers Care President [employer] Name Role Phone Liu Jerez MD Unavailable Albert Corbin MD Unavailable Justen Gale MD Primary Care Provider Khris Arthur MD Unavailable [phone] Ko Melendez MD Unavailable John Paul Moyer MD Unavailable Annel Rod MD Unavailable Anali MARSHALL MD, Carlos M. Unavailable Allergies Active Allergy Reactions Criticality Noted [...] Taken at 2100 Active blood glucose diagnostic ([employer] Ultra Test) strip 4 (four) times a [...] 09/12/2021 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) 2021 skilled nursing (current) use 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 inhibitors 10/17/2019 Thyroid [...] without long-term current use of insulin ([facility]) 10/23/2017 Assessment & Plan (10/23/2017 2:06 AM [...] (07/28/2017): Added automatically from request for surgery [id number] Pulmonary embolism 08/09/2016 Assessment & Plan (10/23/2017 [...] Type Department Care Team Description 04/22/2024 Telephone [facility] Oncology [address] [facility] Floor [address] [place] [address] Radha Mcgrath RN 04/19/2024 Telephone [facility] [address] [place] [address] Lalita Braun, NURIS Scheduling Appointments 02/15/2024 2:22 AM CDT - 02/15/2024 5:58 AM CDT Emergency [facility] Emergency Department [address] [place] [id number] Jeremías Smith MD Myalgia (Primary Dx) Discharge [...] drink = 0.6 oz pur e alcohol) [facility] Utilities Answer Date Recorded In [...] often do you attend chur ch or advent services? 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 Urine pH is affected by diet, medications, systemic acid-base disturbances, and renal tubular function. ??pH may affect urinary stone formation. ??For example, urine pH below 6.0 may help reduce the tendency for calcium phosphate stones and pH greater than 6.0 may reduce the tendency for uric acid stone formation. Source: [facility] [employer] Current Interpretive Data was last revised on 2017 Testing performed by: [address] [address] Protein, ur ql Negative Negative MARY JANE Comment:Testing performed by : [address] [address] Glucose, ur ql Trace(A) Negative MARY JANE Comment:Testing performed by : [address] [address] Ketones, ur Negative Negative MARY JANE Comment:Testing performed by : [address] [address] Bilirubin, ur Negative Negative MARY JANE Comment:Testing performed by : [address] [address] Blood, ur 1+(A) Negative MARY JANE Comment:Testing performed by : [address] [address] Urobilinogen, ur <2.0 <2.0 mg/dL MARY JANE Comment:Testing performed by : [address] [address] Nitrite, ur Negative Negative MARY JANE Comment:Testing performed by : [address] [address] Leukocyte esterase, ur Negative Negative MARY JANE Comment:Testing performed by : [address] [address] UA reflex comment Reflex to microscopic UA will be performed. MARY JANE Comment:Testing performed by : [address] [address] Urine, in and out catheter 02/15/2024 1:19 AM CDT 02/15/2024 1:23 AM CDT Jeremías Smith MD LAB MICROBIOLOGY - GENERAL ORD ERABLES Final Result Performing Organization Address [facility] Co de Phone Number MARY JANE [address] [facility] Department [place] [address] * (ABNORMAL) Urinalysis, microscopic only (02/15/2024 1:19 AM CDT) WBC, ur 0-5 0 - 5 /HPF Comment:Testing performed by : [address] [address] RBC, ur 3-5(A) 0 - 2 /HPF MARY JANE Comment:Testing performed by : [address] [address] Epithelial cells, squamous, ur 1-5 0 - 5 /HPF MARY JANE Comment:Testing performed by : [address] [address] Mucous, ur Present(A) MARY JANE Comment:Testing performed by : [address] [address] Hyaline casts, ur 1-5 0 - 10 /LPF MARY JANE Comment:Testing performed by : [address] [address] Culture Reflex Comment Reflex conditions for urine culture (WBC >10) not met. MARY JANE Comment:Testing performed by : [address] [address] Urine, in and out catheter 02/15/2024 1:19 AM CDT 02/15/2024 1:23 AM CDT Jeremías Smith MD LAB URINE ORDERABLES Final Res ult MARY JANE [address] [facility] Department [place] [address] * eGFR (02/15/2024 1:09 AM CDT) eGFR [...] was last reviewed 2021. Testing performed by: [facility], [address] [place] [address]., [address] Blood 02/15/2024 1:09 AM CDT 02/15/2024 1:15 AM CDT us Jeremías Smith MD LAB BLOOD ORDERABLES Final Res ult MARY JANE [address] [facility] Department [place] [address] * Creatine kinase (CK), total (02/15/2024 1:09 AM CDT) CK 137 30 - 200 Units/L Comment:Testing performed by : [address] [address] Blood 02/15/2024 1:09 AM CDT 02/15/2024 4:55 AM CDT us Jeremías Smith MD LAB BLOOD ORDERABLES Final Res ult [facility] [address] [facility] Department [place] [address] * (ABNORMAL) Comprehensive metabolic panel (02/15/2024 1:09 AM CDT) Pathologist [facility] Sodium 137 135 - 145 mmol/L Comment:Testing performed by : [address] [address] Potassium, pl 4.3 3.3 - 4.9 mmol/L MARY JANE Comment:Testing performed by : [address] [address] Chloride 100 97 - 110 mmol/L MARY JANE Comment:Testing performed by : [address] [address] CO2 29 22 - 32 mmol/L MARY JANE Comment:Testing performed by : [address] [address] Anion gap 8 2 - 15 mmol/L MARY JANE Comment:Testing performed by : [address] [address] BUN 22 6 - 25 mg/dL MARY JANE Comment:Testing performed by : [address] [address] Creatinine 0.60 0.60 - 1.10 mg/dL MARY JANE Comment:Testing performed by : [address] [address] Glucose 231(H) 70 - 199 mg/dL MARY [...] was last revised 2022. Testing performed by: [address] [address] Calcium 10.3 8.5 - 10.3 mg/dL MARY JANE Comment:Testing performed by : [address] [address] Bilirubin, total 0.4 0.1 - 1.2 mg/dL MARY JANE Comment:Testing performed by : [address] [address] Protein, pl 8.2 6.5 - 8.5 g/dL MARY JANE Comment:Testing performed by : [address] [address] Albumin 3.9 3.5 - 5.0 g/dL MARY JANE Comment:Testing performed by : [address] [address] Alk phos 74 40 - 130 Units/L MARY JANE Comment:Testing performed by : [address] [address] ALT 18 7 - 45 Units/L MARY JANE Comment:Testing performed by : [address] [address] AST 16 10 - 45 Units/L MARY JANE Comment:Testing performed by : [address] [address] Blood 02/15/2024 1:09 AM CDT 02/15/2024 1:15 AM CDT us Jeremías Smith MD LAB BLOOD ORDERABLES Final Res ult [facility] [address] [facility] Department [place] [address] * Influenza A/B, RSV, and COVID-19 PCR Nasopharyngeal (02/14/2024 11:43 PM CDT) Pathologist [facility] COVID-19 RNA Negative Negative Comment:Testing performed by : [address] [address] Influenza A RNA Negative Negative [facility] Comment:Testing performed by : [address] [address] Influenza B RNA Negative Negative [facility] Comment:Testing performed by : [address] [address] RSV RNA Negative Negative [facility] Comment: Interpretive data: Testing performed by [facility]. This test is performed using the Nipendo[employer] Xpress CoV-2/Flu/RSV plus assay. This is a multiplex, real-time reverse transcriptase PCR assay intended for the qualitative detection of nucleic acid from SARS-CoV-2, influenza A, influenza B, and respiratory syncytial virus. This assay has been cleared by the [place] Food and Drug administration. The performance characteristics have been verified by the [facility]. ??Results must be considered in the clinical context, and a negative result does not rule out infection. Interpretive Data last revised 2023 Testing performed by: [address] [address] Nasopharyngeal 02/14/2024 11 :43 PM CDT 02/14/2024 11:49 PM CDT Narrative [facility] - 02/15/2024 12:35 AM CDT Is the Patient experiencing symptoms consistent with COVID?->Yes us Jeremías Smith MD LAB MICROBIOLOGY - GENERAL ORD ERABLES Final Result MARY JANE [address] [facility] Department [place] [address] * Differential, auto (02/14/2024 11:43 PM CDT) Pathologist [facility] Neutrophil abs 6.4 1.5 - 6.5 K/cumm Comment:Testing performed by : [address] [address] Imm gran abs 0.1 0.0 - 0.1 K/cumm [facility] Comment:Testing performed by : [address] [address] Lymphocyte abs 2.5 0.8 - 3.3 K/cumm [facility] Comment:Testing performed by : [address] [address] Monocyte abs 0.7 0.2 - 0.8 K/cumm [facility] Comment:Testing performed by : [address] [address] Eosinophil abs 0.3 0.0 - 0.5 K/cumm [facility] Comment:Testing performed by : [address] [address] Basophil abs 0.0 0.0 - 0.1 K/cumm [facility] Comment:Testing performed by : [address] [address] Neutrophil pct 63.7 % [facility] Comment: Interpretive Data Percent cell count reference ranges are not reported, since discordance with absolute values may lead to misinterpretation of CBC data. Current Interpretive Data was last revised on 2017. Testing performed by: [address] [address] Imm gran pct 0.5 % [facility] Comment: Interpretive Data Percent cell count reference ranges are not reported, since discordance with absolute values may lead to misinterpretation of CBC data. Current Interpretive Data was last revised on 2017. Testing performed by: [address] [address] Lymphocyte pct 24.7 % [facility] Comment: Interpretive Data Percent cell count reference ranges are not reported, since discordance with absolute values may lead to misinterpretation of CBC data. Current Interpretive Data was last revised on 2017. Testing performed by: [address] [address] Monocyte pct 7.4 % [facility] Comment: Interpretive Data Percent cell count reference ranges are not reported, since discordance with absolute values may lead to misinterpretation of CBC data. Current Interpretive Data was last revised on 2017. Testing performed by: [address] [address] Eosinophil pct 3.3 % MARY JANE [facility] Comment: Interpretive Data Percent cell count reference ranges are not reported, since discordance with absolute values may lead to misinterpretation of CBC data. Current Interpretive Data was last revised on 2017. Testing performed by: [address] [address] Basophil pct 0.4 % MARY JANE [facility] Comment: Interpretive Data Percent cell count reference ranges are not reported, since discordance with absolute values may lead to misinterpretation of CBC data. Current Interpretive Data was last revised on 2017. Testing performed by: [address] [address] Blood 02/14/2024 11:4 3 PM CDT 02/14/2024 11:49 PM CDT us Jeremías Smith MD LAB BLOOD ORDERABLES Final Res ult MARY JANE [facility] Department [place] [address] * (ABNORMAL) CBC with auto differential (02/14/2024 11:43 PM CDT) WBC 10.0(H) 3.8 - 9.9 K/cumm Comment:Testing performed by : [address] [address] Hgb 13.7 11.9 - 15.5 g/dL MARY JANE PHAM Comment:Testing performed by : [address] [address] Hct 42.4 35.6 - 45.5 % MARY JANE PHAM Comment:Testing performed by : [address] [address] Plt 273 150 - 400 K/cumm MARY JANE PHAM Comment:Testing performed by : [address] [address] MPV 10.3 9.1 - 12.3 fL MARY JANE PHAM Comment:Testing performed by : [address] [address] RBC 4.73 3.90 - 5.20 M/cumm MARY JANE PHAM Comment:Testing performed by : [address] [address] MCV 89.6 81.3 - 96.4 fL MARY JANE Comment:Testing performed by : [address] [address] MCH 29.0 27.1 - 33.3 pg MARY JANE Comment:Testing performed by : [address] [address] MCHC 32.3 32.3 - 35.7 g/dL MARY JANE Comment:Testing performed by : [address] [address] RDW CV 13.8 11.1 - 14.9 % MARY JANE Comment:Testing performed by : [address] [address] RDW SD 45.0 35.7 - 48.1 fL MARY JANE Comment:Testing performed by : [address] [address] NRBC abs 0.00 0.00 - 0.01 K/cumm MARY JANE Comment:Testing performed by : [address] [address] Blood 02/14/2024 11:4 3 PM CDT 02/14/2024 11:49 PM CDT us Jeremías Smith MD LAB BLOOD ORDERABLES Final Res ult MARY JANE [address] [facility] Department [place] [address] * aPTT (02/14/2024 11:43 PM CDT) [facility] aPTT 31 22 - 37 sec Comment: Interpretive data aPTT test has not been evaluated for monitoring heparin therapy. The anti-Xa is the preferred test. Current interpretive data was last revised on 2019. Testing performed by: [address] [address] Blood 02/14/2024 11:4 3 PM CDT 02/14/2024 11:49 PM CDT Jeremías Smith MD LAB BLOOD ORDERABLES Final Res ult Performing Organization Address [facility] de Phone Number MARY JANE [address] [address] * (ABNORMAL) Protime-INR (02/14/2024 11:43 PM CDT) PT 16.9(H) 12.0 - 14.6 sec Comment: Ref Range High Testing performed by: [address] [address] INR 1.4(H) 0.9 - 1.2 MARY JANE Comment: Ref Range High Interpretive data Oral anticoagulant therapeutic ranges: Venous thromboembolism prophylaxis or treatment: 2.0-3.0 CARDIOLOGY Standard range: 2.0-3.0 High-intensity range: 2.5-3.5 Refer to indication-specific guidelines for appropriate target ranges for prosthetic heart valve replacement. Current interpretive data was last revised on 2019. Testing performed by: [address] [address] Blood 02/14/2024 11:4 3 PM CDT 02/14/2024 11:49 PM CDT Jeremías Smith MD LAB BLOOD ORDERABLES Final Res ult Performing Organization Address [facility] Co de Phone Number [place] [address] [place] [address] * (ABNORMAL) Hemoglobin A1c (08/14/2023 8:47 PM CDT) Hgb A1C 8.4(H) 4.0 - 5.6 % Comment:Testing performed by : [address] [address] Estimated Average Glucose 194 mg/dL MARY JANE Comment: The ADA recommends reporting an estimated Average Glucose (eAG) with all Hemoglobin A1c results using the equation derived from a study of 507 normal and diabetic adults. ??Minority populations were underrepresented and children were not included. ?? (Diabetes Care 31:5966-8071, 2008). ??The eAG is not equivalent to a fasting glucose. Testing performed by: [facility], [address] [place] [address]., [address] Blood 08/14/2023 8:47 PM CDT 08/14/2023 8:52 PM CDT us Philippe Mcguire MD LAB BLOOD ORDERABLES Final Result MARY JANE PHAM [address] [facility] Department [place] [address] * Lipid panel (08/14/2023 8:47 [...] last revised on 2017. Testing performed by: [facility], [address] [place] [address]., [address] Triglycerides 121 <=149 mg/dL MARY JANE PHAM [...] last revised on 2017. Testing performed by: [address] [address] HDL 44 >=40 mg/dL MARY JANE PHAM [...] last revised on 2017. Testing performed by: [address] [address] LDL, calculated 108 <=129 mg/dL MARY JANE [...] last revised on 2017. Testing performed by: [address] [address] Non-HDL Cholesterol 132 mg/dL MARY JANE PHAM [...] last revised on 2017. Testing performed by: [address] [address] Chol/HDL ratio 4 MARY JANE Comment:Testing performed by : [address] [address] Blood 08/14/2023 8:47 PM CDT 08/14/2023 8:52 PM CDT us Philippe Mcguire MD LAB BLOOD ORDERABLES Final Result MARY JANE [address] [facility] Department [place] [address] * Dexa Axial Skeleton Bone Density 1 or 2 Site (08/02/2022 10:53 AM CDT) Anatomical Region Laterality Modality Body N/A Radiographic Lizeth ging Narrative 08/02/2022 3:34 PM CDT Patient Name: Karly Marques Date of : 1955 Date of scan: 08/02/2022 Bone mineral density was performed on a HoloGateway 3D Discovery Densitometer. ?? Based on machine cross-calibration [...] by the International Society of Clinical Densitometry. [id number] us Khris Arthur MD IMG DXA PROCEDURES [...] agrees with it. ACC# ??Date Time ??Exam [id number] Aug 19, 2016 14:27:00 [facility] [address] Diag Mamm, inc CAD, unilat L ?? Technologist(s): Carla Harris; ; [id number] Aug 19, 2016 15:39:00 [facility] [id number] Breast US unilateral, ltd L ACC# ??Date Time ??Exam [id number] Aug 19, 2016 14:27:00 [facility] [address]672 Diag Mamm, inc CAD, unilat L ?? Technologist(s): Carla Harris; ; [id number] Aug 19, 2016 15:39:00 [facility] [address] Breast US unilateral, ltd L EXAMINATION: ?? [...] SARABIA M.D. on Aug 19 2016 ??4:20P [id number] Procedure Note Miscellaneous, Not In File / Provider, MD Tyler - 09/17/2016 ANTHONY SARABIA M.D. JUDY RINCON M.D. FINAL REPORT The radiology attending physician has personally reviewed this study, and has reviewed and/or edited this written report and agrees with it. ACC# Date Time Exam [id number] Aug 19, 2016 14:27:00 [facility] [address]279 DiaTwonq Mamm, inc CAD, unilat L Technologist(s): Carla Harris; ; [id number] Aug 19, 2016 15:39:00 [facility] [id number] Breast US unilateral, ltd L ACC# Date Time Exam [id number] Aug 19, 2016 14:27:00 [facility] [address]647 Diag Mamm, inc CAD, unilat L Technologist(s): Carla Harris; ; [id number] Aug 19, 2016 15:39:00 [facility] [address] Breast US unilateral, ltd L EXAMINATION: LEFT [...] SARABIA M.D. on Aug 19 2016 4:20P [id number] us Not In File Miscellaneous IMG MAMMO PROCEDURES F inal Result from Last 3 Months or Most Recently Relevant to Health Maintenance Insurance [employer] MEDICARE SOLUTIONS MEDICARE SOLUTIONS [facility] MEDICARE SOLUTIONS 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 ADVANCE DIRECTIVE 12/23/2021 2:49 PM Power of Produce Department Manager-Medical ADVANCE DIRECTIVE 12/23/2021 2:49 PM Living Will [...] Agents on File Name Relationship Healthcare Agent [facility] Communication Yunior Marques Daughter Health Care Agent Jimmie Marques Spouse First Alternate Health Care Agent Care Teams President [employer] Relationship Specialty Start Date End Date Justen Gale MD [address] [address] PCP - General 10/09/17 Liu Jerez MD Consulting Physician Gastroenterology 07/28/17 [place] [address] [facility] [address] [place] [address] Consulting Physician Pulmonary Disease 08/03/17 Khris Arthur MD [address] [facility] [address] [place] [address] Medical Oncologist/Fluid Jet Cutter Operator Medical Oncology 10/23/17 [place] [address] [facility] [address] [place] [address] Surgeon Orthopedic Surgery 10/23/17 [place] [address] [facility] [address] [place] [address] Consulting Physician Pain Management 10/23/17 [place] [address] [facility] [address] [place] [address] Referring Physician General Surgery 01/26/18 [place] [address] [facility] [address] [place] [address] Consulting Physician Neurology 01/26/18
--- OUTSIDE RECORDS SUMMARY | 2024-04-26 09:13 | XMS_ITS | Encounter Summary ---
Author Organization [facility] Healthcare Address [address] [place] [address] Care Team Providers Care Engraving Supervisor Name Role Phone Liu Jerez MD Unavailable [phone] Albert Corbin MD Unavailable Justen Gale MD Primary Care Provider Khris Arthur MD Unavailable [phone] Ko Melendez MD Unavailable [phone] John Paul Moyer MD Unavailable Annel Rod MD Unavailable Anali MARSHALL MD, Carlos M. Unavailable [phone] Reason for Visit * Reason Comments Sore Throat Encounter Details Date Type Department Care Team (Late st Contact Info) Description 01/05/2024 2:39 AM CDT - 01/05/2024 3:44 AM CDT Emergency [facility] Emergency Department [facility] [place] [address] Jeremías Smith MD [address] [address] Acute cystitis without hematuria (Primary Dx); Acute pharyngitis, unspecified etiology Discharge Disposition: Discharge to home or self care Social History Tobacco Use Types Packs/Day Years Used Date Smoking Tobacco: Former Smokeless Tobacco: Never Comments:remote tobacco use Alcohol Use Standard Drinks/Week Comments No 0 (1 standard drink = 0.6 oz pur e alcohol) [facility] Utilities Answer Date Recorded In the past 12 months has e [employer], gas, oil, or water [employer] threatened to shut off services in your [...] answer 08/15/2023 How often do you attend [facility] or nondenominational services? 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 * Pharyngitis (Discharge Care) ([place]) * Urinary Tract Infection in Older Adults (AfterCare(R) Instructions(ER/ED)) ([place]) documented in this encounter Medications at Time of Discharge albuterol HFA (PROVENTIL HFA,VENTOLIN HFA,PROAIR HFA) 90 mcg/actuation inhaler Inhale 2 puffs every 6 (six) hours as needed for wheezing or shortness of breath 04/19/2021 BD Ultra-Fine Short Pen Needle 31 gauge x 5/16 needle USE 6 TIMES DAILY DIRECTED 06/24/2021 blood glucose diagnostic (Spendjiuch Ultra Test) strip 4 (four) times a [...] heart failure) (CMS/HCC) (HCC) Depression Depression Diabetes ([facility]) Disorder of thyroid Thyroid disease DVT (deep venous thrombosis) ([facility]) ([facility]) HX OTHER MEDICAL restless leg syndrome HX OTHER MEDICAL RLS Hypertension Hypertension Osteoarthritis osteoarthritis PE (pulmonary thromboembolism) ([facility]) ([facility]) Sleep apnea Exam Vitals: 01/04/24 2118 [...] satting well, doubt pneumonia. No signs of [employer]/RPA and strep negative. COVID and influenza negative. [...] Escherichia coli (.) Comment:Testing performed by : [facility], [address] [facility], [place] [address] Organism ESCHERICHIA COLI MARY JANE Urine 01/04/2024 9:34 PM CDT 01/05/2024 2:53 AM CDT Narrative MARY JANE PHAM - 01/07/2024 11:30 AM CDT Urine culture reflexed based upon urinalysis results. Testing performed by [facility] Microbiology Laboratory ([phone]) Organism Antibiotic Method Susceptibility Escherichia coli Ampicillin [...] Escherichia coli Cefdinir INTERPRETATION Susceptible Blaze [facility] LAB MICROBIOLOGY - GENERAL ORDER [place]O Final Result MARY JANE [address] [facility] Department [place] [address] * (ABNORMAL) Urinalysis, microscopic only (01/04/2024 9:34 PM CDT) WBC, ur 11-20(A) 0 - 5 /HPF Comment:Testing performed by : [address] [address] RBC, ur 3-5(A) 0 - 2 /HPF MARY JANE Comment:Testing performed by : [address] [address] Epithelial cells, squamous, ur 1-5 0 - 5 /HPF MARY JANE Comment:Testing performed by : [address] [address] Bacteria, ur Trace(A) MARY JANE Comment:Testing performed by : [address] [address] Mucous, ur Present(A) MARY JANE Comment:Testing performed by : [address] [address] Culture Reflex Comment Reflex to urine culture will be performed. MARY JANE Comment:Testing performed by : [address] [address] Urine 01/04/2024 9:34 PM CDT 01/04/2024 9:41 PM CDT us Jeremías Smith MD LAB URINE ORDERABLES Final Res ult MARY JANE [address] [facility] [place] [address] * (ABNORMAL) Urinalysis reflex to microscopic and culture Urine (01/04/2024 9:34 PM CDT) Color, ur Yellow Yellow Comment:Testing performed by : [address] [address] Clarity, ur Clear Clear MARY JANE Comment:Testing performed by : [address] [address] Specific gravity, ur 1.021 1.003 - 1.030 MARY JANE Comment:Testing performed by : [address] [address] pH, urine 6.0 MARY JANE Comment: Interpretive Data ? Urine pH is affected by diet, medications, systemic acid-base disturbances, and renal tubular function. ??pH may affect urinary stone formation. ??For example, urine pH below 6.0 may help reduce the tendency for calcium phosphate stones and pH greater than 6.0 may reduce the tendency for uric acid stone formation. Source: [facility] [employer] Current Interpretive Data was last revised on 2017 Testing performed by: [address] [address] Protein, ur ql Negative Negative MARY JANE Comment:Testing performed by : [address] [address] Glucose, ur ql 4+(A) Negative MARY JANE Comment:Testing performed by : [address] [address] Ketones, ur Negative Negative MARY JANE Comment:Testing performed by : [address], [place]., [address] Bilirubin, ur Negative Negative MARY JANE Comment:Testing performed by : [address], [place]., [address] Blood, ur Trace(A) Negative MARY JANE Comment:Testing performed by : [address], [place]., [address] Urobilinogen, ur <2.0 <2.0 mg/dL MARY JANE Comment:Testing performed by : [address], [place]., [address] Nitrite, ur Negative Negative MARY JANE Comment:Testing performed by : [address], [place]., [address] Leukocyte esterase, ur 2+(A) Negative MARY JANE Comment:Testing performed by : [address], [place]., [address] UA reflex comment Reflex to microscopic UA will be performed. MARY JANE Comment:Testing performed by : [address], [place]., [address] Urine 01/04/2024 9:34 PM CDT 01/04/2024 9:41 PM CDT Jeremías Smith MD LAB MICROBIOLOGY - GENERAL ORD ERABLES Final Result MARY JANE [address] [facility] [place] [address] * Influenza A/B, RSV, and COVID-19 PCR Nasopharyngeal (01/04/2024 9:27 PM CDT) COVID-19 RNA Negative Negative Comment:Testing performed by : [address], [place]., [address] Influenza A RNA Negative Negative MARY JANE Comment:Testing performed by : [address], [place]., [address] Influenza B RNA Negative Negative MARY JANE Comment:Testing performed by : [address], [place]., [address] RSV RNA Negative Negative MARY JANE Comment: Interpretive data: Testing performed by [facility]. This test is performed using the [employer]row Xpert Xpress CoV-2/Flu/RSV plus assay. This is a multiplex, real-time reverse transcriptase PCR assay intended for the qualitative detection of nucleic acid from SARS-CoV-2, influenza A, influenza B, and respiratory syncytial virus. This assay has been cleared by the [place] Food and Drug administration. The performance characteristics have been verified by the [facility]. ??Results must be considered in the clinical context, and a negative result does not rule out infection. Interpretive Data last revised 2023 Testing performed by: [address] [address] Nasopharyngeal 01/04/2024 9: 27 PM CDT 01/04/2024 9:41 PM CDT [facility] MARY JANE - 01/04/2024 10:29 PM CDT Is the Patient experiencing symptoms consistent with COVID?->Yes Jeremías Smith MD LAB MICROBIOLOGY - GENERAL ORD ERABLES Final Result MARY JANE [address] [facility] [place] [address] * Streptococcus Group A PCR Throat (01/04/2024 9:27 PM CDT) Pathologist [facility] Strep A DNA Not Detected Not Detected Comment: This test is performed using the [employer]Ar[employer] Xpert Group A Streptococcal Assay. This is [...] by the performing laboratory. Testing performed by: [address] [address] Throat 01/04/2024 9:27 PM CDT 01/04/2024 9:41 PM CDT us Jeremías Smith MD LAB MICROBIOLOGY - GENERAL ORD ERABLES Final Result MARY JANE [address] [facility] [place] [address] documented in this encounter Visit Diagnoses Diagnosis [...] 4 documented in this encounter Care Teams Engraving Supervisor Relationship Specialty Start Date End Date Justen Gale MD [address] [place] [address] PCP - General 10/09/17 Liu Jerez MD Consulting Physician Gastroenterology 07/28/17 [place] [address] [facility] [address] [place] [address] Consulting Physician Pulmonary Disease 08/03/17 Khris Arthur MD [address] [facility] [address] [place] [address] Medical Oncologist/Retail District Manager Medical Oncology 10/23/17 [place] [address] [facility] [address] [place] [address] Surgeon Orthopedic Surgery 10/23/17 [place] [address] [facility] [address] [place] [address] Consulting Physician Pain Management 10/23/17 [place] [address] [facility] [address] [place] [address] Referring Physician General Surgery 01/26/18 [place] [address] [address] [facility] [address] [place] [address] Consulting Physician Neurology 01/26/18 documented as of this encounter
--- OUTSIDE RECORDS SUMMARY | 2024-04-26 09:13 | XMS_ITS | Encounter Summary ---
Author Organization [facility] Address [address] [place] [address] Phone Care Team Providers Care Drywall Mechanic Name Role Phone Liu Jerez MD Unavailable [phone] Albert Corbin MD Unavailable [phone] Justen Gale MD Primary Care Provider [phone] Khris Arthur MD Unavailable [phone] Ko Melendez MD Unavailable John Paul Moyer MD Unavailable [phone] Annel Rod MD Unavailable Anali MARSHALL MD, Carlos M. Unavailable [phone] Encounter Details Date Type Department Care Team (Latest Contact Info) Description 10/02/2023 Orders Only [facility] Scanning, Provider Social History Tobacco Use Types Packs/Day Years Used Date Smoking Tobacco: Former Smokeless Tobacco: Never Comments:remote tobacco use Alcohol Use Standard Drinks/Week Comments No 0 (1 standard drink = 0.6 oz pur e alcohol) [facility] Utilities Answer Date Recorded In the past [...] often do you attend chur ch or adventism services? 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 Gender Identity Not on file Sexual [...] on filedocumented in this encounter Care Teams Drywall Mechanic Relationship Specialty Start Date End Date Justen Gale MD [address] [place] [address] PCP - General 10/09/17 Liu Jerez MD Consulting Physician Gastroenterology 07/28/17 [place] [address] [facility] [address] [place] [address] Consulting Physician Pulmonary Disease 08/03/17 Khris Arthur MD [address] [facility] [address] [place] [address] Medical Oncologist/Medical Sonographer Medical Oncology 10/23/17 [place] [address] [facility] [facility] [address] [place] [address] Surgeon Orthopedic Surgery 10/23/17 [place] [address] [facility] [address] [place] [address] Consulting Physician Pain Management 10/23/17 [place] [address] [facility] [address] [place] [address] Referring Physician General Surgery 01/26/18 [place] [address] [facility] [address] [place] [address] Consulting Physician Neurology 01/26/18 documented as of this encounter
--- OUTSIDE RECORDS SUMMARY | 2024-04-26 09:13 | XMS_ITS | Encounter Summary ---
Author Organization [facility] Healthcare Address [address] [place] [address] Care Team Providers Care Digital Manager Name Role Phone Liu Jerez MD Unavailable Albert Corbin MD Unavailable Justen Gale MD Primary Care Provider Khris Arthur MD Unavailable [phone] Ko Melendez MD Unavailable John Paul Moyer MD Unavailable Annel Rod MD Unavailable Anali MARSHALL MD, Carlos M. Unavailable Reason for Visit * Reason Comments Vomiting Encounter Details Date Type Department Care Team (Late st Contact Info) Description 11/05/2023 3:55 AM CDT - 11/05/2023 8:[address] [facility] Emergency Department [facility] [place] [address] Ilana Stevens MD [address] [place] [address] Gil Diez, [address] [facility] [place] [address] Gastroparesis (Primary Dx) Discharge Disposition: Discharge to home or self care Social History Tobacco Use Types Packs/Day Years Used Date Smoking Tobacco: Former Smokeless Tobacco: Never Comments:remote tobacco use Alcohol Use Standard Drinks/Week Comments No 0 (1 standard drink = 0.6 oz pur e alcohol) [facility] Utilities Answer Date Recorded In the past 12 months has [employer], gas, oil, or water company threatened [...] often do you attend chur ch or synagogue services? 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 * Gastroparesis (AfterCare(R) Instructions(ER/ED)) (Malawian) documented in this encounter Medications at Time of Discharge albuterol HFA (PROVENTIL HFA,VENTOLIN HFA,PROAIR HFA) 90 mcg/actuation inhaler Inhale 2 puffs every 6 (six) hours as needed for wheezing or shortness of breath 04/19/2021 BD Ultra-Fine Short Pen Needle 31 gauge x 5/16 needle USE 6 TIMES DAILY DIRECTED 06/24/2021 blood glucose diagnostic (Filter Sensing TechnologiesTouch Ultra Test) strip 4 (four) times a [...] Use: Not At Risk (06/16/2023) Received from [facility] [employer], [facility] [employer] AUDIT-C ??? Frequency of Alcohol Consumption: Never [...] Patrick Zhou M.D. KH: KH Report ID: [id number] Reading Location: [id number] XR Chest 1 Vw Portable EXAM DESCRIPTION: [...] Olinda Bernal M.D. FT: FT Report ID: [id number] Reading Location: [id number] BP 138/80 Pulse 71 Temp 36.4 ??C [...] Please see ED course. Discussion with other providers/consultants/hospitalist/journeyman pressman: yes. Risk of complications form testing and/or [...] MD This examination was transcribed using the Onaro voice recognition system without human assembler knife. In an effort to expedite patient care, this report has not been adjusted for typographical, grammatical, and syntax by a trained medical assisting instructor. Clinical Impression: No diagnosis found. Ilana Stevens [...] - 2.0 mmol/L Comment:Testing performed by : [facility], [address] [place] [address], [place]., [address] Blood 11/04/2023 8:59 PM CDT 11/04/2023 9:10 PM CDT us Ilana Stevens MD LAB BLOOD ORDERABLES F inal Result Performing Organization Address City/[facility]/ZIP Co de Phone Number MARY JANE [address] [place] [address] * Beta-hydroxybutyrate (11/04/2023 8:59 PM CDT) [facility] Beta-Hydroxybut yrate 0.0 <=0.5 mmol/L Blood 11/04/2023 8:59 PM CDT 11/04/2023 10:49 PM CDT Ilana Stevens MD LAB BLOOD ORDERABLES F inal Result Performing Organization Address [facility] de Phone Number MARY JANE [address] [place] [address] * eGFR (11/04/2023 8:58 PM CDT) [facility] eGFR >90 >=60 mL/min/1. 73 m2 Comment: [...] was last reviewed 2021. Testing performed by: [address] [address] Blood 11/04/2023 8:58 PM CDT 11/04/2023 9:10 PM CDT Ilana Stevens MD LAB BLOOD ORDERABLES F inal Result [facility] [address] [facility] [place] [address] * (ABNORMAL) Differential, auto (11/04/2023 8:58 PM CDT) Neutrophil abs 7.0(H) 1.5 - 6.5 K/cumm Comment:Testing performed by : [address] [address] Imm gran abs 0.0 0.0 - 0.1 K/cumm MARY JANE Comment:Testing performed by : [address] [address] Lymphocyte abs 3.1 0.8 - 3.3 K/cumm MARY JANE Comment:Testing performed by : [address] [address] Monocyte abs 0.7 0.2 - 0.8 K/cumm MARY JANE Comment:Testing performed by : [address] [address] Eosinophil abs 0.3 0.0 - 0.5 K/cumm MARY JANE Comment:Testing performed by : [address] [address] Basophil abs 0.0 0.0 - 0.1 K/cumm MARY JANE Comment:Testing performed by : [address] [address] Neutrophil pct 62.7 % MARY JANE Comment: Interpretive Data Percent cell count reference ranges are not reported, since discordance with absolute values may lead to misinterpretation of CBC data. Current Interpretive Data was last revised on 2017. Testing performed by: [address] [address] Imm gran pct 0.4 % [facility] Comment: Interpretive Data Percent cell count reference ranges are not reported, since discordance with absolute values may lead to misinterpretation of CBC data. Current Interpretive Data was last revised on 2017. Testing performed by: [address] [address] Lymphocyte pct 27.5 % [facility] Comment: Interpretive Data Percent cell count reference ranges are not reported, since discordance with absolute values may lead to misinterpretation of CBC data. Current Interpretive Data was last revised on 2017. Testing performed by: [address] [address] Monocyte pct 6.2 % [facility] Comment: Interpretive Data Percent cell count reference ranges are not reported, since discordance with absolute values may lead to misinterpretation of CBC data. Current Interpretive Data was last revised on 2017. Testing performed by: [address] [address] Eosinophil pct 2.8 % [facility] Comment: Interpretive Data Percent cell count reference ranges are not reported, since discordance with absolute values may lead to misinterpretation of CBC data. Current Interpretive Data was last revised on 2017. Testing performed by: [address] [address] Basophil pct 0.4 % [facility] Comment: Interpretive Data Percent cell count reference ranges are not reported, since discordance with absolute values may lead to misinterpretation of CBC data. Current Interpretive Data was last revised on 2017. Testing performed by: [address] [address] Blood 11/04/2023 8:58 PM CDT 11/04/2023 9:10 PM CDT us Ilana Stevens MD LAB BLOOD ORDERABLES F inal Result [facility] [address] Department [place] [address] * Lipase (11/04/2023 8:58 PM CDT) Pathologist [facility] Lipase 20 10 - 99 Units/L Comment:Testing performed by : [address] [address] Blood (Blood, Venous) 11/04/2023 8:58 PM CDT 11/04/2023 9:10 PM CDT us Ilana Stevens MD LAB BLOOD ORDERABLES F inal Result [facility] [address] [place] [address] * Comprehensive metabolic panel (11/04/2023 8:58 PM CDT) Pathologist [facility] Sodium 137 135 - 145 mmol/L Comment:Testing performed by : [address] [address] Potassium, pl 4.2 3.3 - 4.9 mmol/L MARY JANE Comment:Testing performed by : [address] [address] Chloride 97 97 - 110 mmol/L MARY JANE Comment:Testing performed by : [address] [address] CO2 26 22 - 32 mmol/L MARY JANE Comment:Testing performed by : [address] [address] Anion gap 14 2 - 15 mmol/L MARY JANE Comment:Testing performed by : [address] [address] BUN 16 6 - 25 mg/dL MARY JANE Comment:Testing performed by : [address] [address] Creatinine 0.70 0.60 - 1.10 mg/dL MARY JANE Comment:Testing performed by : [address] [address] Glucose 161 70 - 199 mg/dL MARY [...] was last revised 2022. Testing performed by: [address] [address] Calcium 9.4 8.5 - 10.3 mg/dL MARY JANE Comment:Testing performed by : [address] [address] Bilirubin, total 0.5 0.1 - 1.2 mg/dL MARY JANE Comment:Testing performed by : [address] [address] Protein, pl 8.4 6.5 - 8.5 g/dL MARY JANE Comment:Testing performed by : [address] [address] Albumin 3.9 3.5 - 5.0 g/dL MARY JANE Comment:Testing performed by : [address] [address] Alk phos 95 40 - 130 Units/L MARY JANE Comment:Testing performed by : [address] [address] ALT 14 7 - 45 Units/L MARY JANE Comment:Testing performed by : [address] [address] AST 20 10 - 45 Units/L MARY JANE Comment:Testing performed by : [address] [address] Blood 11/04/2023 8:58 PM CDT 11/04/2023 9:10 PM CDT us Ilana Stevens MD LAB BLOOD ORDERABLES F inal Result [facility] [address] [place] [address] * (ABNORMAL) CBC with auto differential (11/04/2023 8:58 PM CDT) [facility] WBC 11.1(H) 3.8 - 9.9 K/cumm Comment:Testing performed by : [address] [address] Hgb 13.4 11.9 - 15.5 g/dL MARY JANE Comment:Testing performed by : [address] [address] Hct 41.7 35.6 - 45.5 % MARY JANE Comment:Testing performed by : [address] [address] Plt 268 150 - 400 K/cumm MARY JANE Comment:Testing performed by : [address] [address] MPV 9.7 9.1 - 12.3 fL MARY JANE Comment:Testing performed by : [address], [address] RBC 4.71 3.90 - 5.20 M/cumm MARY JANE Comment:Testing performed by : [address] [address] MCV 88.5 81.3 - 96.4 fL MARY JANE Comment:Testing performed by : [address] [address] MCH 28.5 27.1 - 33.3 pg MARY JANE Comment:Testing performed by : [address] [address] MCHC 32.1(L) 32.3 - 35.7 g/dL MARY JANE Comment:Testing performed by : [address] [address] RDW CV 13.8 11.1 - 14.9 % MARY JANE Comment:Testing performed by : [address] [address] RDW SD 45.0 35.7 - 48.1 fL MARY JANE Comment:Testing performed by : [address] [address] NRBC abs 0.00 0.00 - 0.01 K/cumm MARY JANE Comment:Testing performed by : [address] [address] Blood (Blood, Venous) 11/04/2023 8:58 PM CDT 11/04/2023 9:10 PM CDT Ilana Stevens MD LAB BLOOD ORDERABLES F inal Result Performing Organization Address [facility] de Phone Number MARY JANE [facility] [place] [address] * POCT glucose (11/04/2023 8:57 PM CDT) [facility] Glucose, POC 152 70 - 199 mg/dL Comment:Testing performed by : [address] [address] Glucose comment 1 Use This Result MARY JANE Comment:Testing performed by : [address] [address] Blood 11/04/2023 8:57 PM CDT 11/04/2023 8:57 PM CDT us Notinfile Unknown LAB POCT ORDERABLES - DEVICE F inal Result Performing Organization Address [facility] de Phone Number [address] [address] documented in this encounter Visit Diagnoses Diagnosis [...] RN) documented in this encounter Care Teams Digital Manager Relationship Specialty Start Date End Date Justen Gale MD [address] [address] PCP - General 10/09/17 Liu Jerez MD Consulting Physician Gastroenterology 07/28/17 [place] [address] [facility] [address] [place] [address] Consulting Physician Pulmonary Disease 08/03/17 Khris Arthur MD [address] [facility] [address] [place] [address] Medical Oncologist/Director Social Service Medical Oncology 10/23/17 [place] [address] [facility] [address] [place] [address] Surgeon Orthopedic Surgery 10/23/17 [place] [address] [facility] [address] [place] [address] Consulting Physician Pain Management 10/23/17 [place] [address] [facility] [address] [place] [address] Referring Physician General Surgery 01/26/18 [place] [address] [facility] [address] [place] [address] Consulting Physician Neurology 01/26/18 documented as of this encounter
--- OUTSIDE RECORDS SUMMARY | 2024-04-26 09:13 | XMS_ITS | Encounter Summary ---
Author Organization [facility] Address [address] [place] [address] Phone Care Team Providers Care Backing In Machine Tender Name Role Phone Liu Jerez MD Unavailable Albert Corbin MD Unavailable Justen Gale MD Primary Care Provider Khris Arthur MD Unavailable [phone] Ko Melendez MD Unavailable John Paul Moyer MD Unavailable Annel Rod MD Unavailable Anali MARSHALL MD, Carlos M. Unavailable [phone] Encounter Details Date Type Department Care Team (Late st Contact Info) Description 10/27/2023 Orders Only [facility] Oncology [address] [facility] Advanced Medicine 7th [place] [address] [place] [address] Radha Mcgrath RN Malignant neoplasm of upper-inner quadrant of left breast in female, estrogen receptor positive (HCC) (Primary Dx) Social History Tobacco Use Types Packs/Day Years Used Date Smoking Tobacco: Former Smokeless Tobacco: Never Comments:remote tobacco use Alcohol Use Standard Drinks/Week Comments No 0 (1 standard drink = 0.6 oz pur e alcohol) [facility] Utilities Answer Date Recorded In [...] often do you attend chur ch or judaism services? Patient unable to answer 08/15/2023 Do you belong to any clubs o r organizations such as quaker groups, unions, fraternal or athletic groups, or [...] slept in a jail (including now)? No 08/15/2023 Personal Safety Answer Date Recorded Have you ever been in or are you currently in a harmful physical or emotional relationship or is someone making you feel afraid or unsafe? 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 Gender Identity Not on file Sexual [...] 11/21/2023 documented in this encounter Care Teams Backing In Machine Tender Relationship Specialty Start Date End Date Justen Gale MD 2 [facility] [address] [place] [address] PCP - General 10/09/17 Liu Jerez MD Consulting Physician Gastroenterology 07/28/17 [place] [address] [facility] [address] [place] [id number] Consulting Physician Pulmonary Disease 08/03/17 Khris Arthur MD [address] [facility] [address] [place] [address] Medical Oncologist/Real Estate Management Specialist Medical Oncology 10/23/17 [place] [address] [facility] [address] [place] [address] Surgeon Orthopedic Surgery 10/23/17 [place] [address] [facility] [address] [place] [address] Consulting Physician Pain Management 10/23/17 [place] [address] [facility] [address] [place] [address] Referring Physician General Surgery 01/26/18 [place] [address] [facility] [address] [place] [address] Consulting Physician Neurology 01/26/18 documented as of this encounter
--- OUTSIDE RECORDS SUMMARY | 2024-04-26 09:13 | XMS_ITS | Encounter Summary ---
Author Organization [facility] Healthcare Address [address] [place] [address] Care Team Providers Care Retail Store Clerk Name Role Phone Liu Jerez MD Unavailable Albert Corbin MD Unavailable Justen Gale MD Primary Care Provider Khris Arthur MD Unavailable [phone] Ko Melendez MD Unavailable John Paul Moyer MD Unavailable Annel Rod MD Unavailable Anali MARSHALL MD, Carlos M. Unavailable Encounter Details Date Type Department Care Team (Late st Contact Info) Description 01/04/2024 [facility] Emergency Department [address] [place] [address] [address] Treadwell, NURIS Social History Tobacco Use Types Packs/Day Years Used Date Smoking Tobacco: Former Smokeless Tobacco: Never Comments:remote tobacco use Alcohol Use Standard Drinks/Week Comments No 0 (1 standard drink = 0.6 oz pur e alcohol) [facility] Utilities Answer Date Recorded In the [...] you attend chur ch or scientologist services? 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 [address] [place] [address] Medical Oncologist/Security Police Officer Medical Oncology 10/23/17 [place] [address] [facility] [address] [place] [address] Surgeon Orthopedic Surgery 10/23/17 [place] [address] [facility] [address] [place] [address] Consulting Physician Pain Management 10/23/17 [place] [address] [facility] [address] [place] [address] Referring Physician General Surgery 01/26/18 [place] [address] [facility] [address] [place] [address] Consulting Physician Neurology 01/26/18 documented as of this encounter
--- OUTSIDE RECORDS SUMMARY | 2024-04-26 09:13 | XMS_ITS | Encounter Summary ---
Author Organization [facility] Healthcare Address [address] [place] [address] Care Team Providers Care Programmer Or Analyst Name Role Phone Liu Jerez MD Unavailable Albert Corbin MD Unavailable [phone] Justen Gale MD Primary Care Provider Khris Arthur MD Unavailable [phone] Ko Melendez MD Unavailable John Paul Moyer MD Unavailable Annel Rod MD Unavailable Anali MARSHALL MD, Carlos M. Unavailable [phone] Reason for Visit * Reason Comments Weakness - Generalized Encounter Details Date Type Department Care Team (Late st Contact Info) Description 12/28/2023 5:55 PM CDT - 12/28/2023 8:36 PM CDT Emergency [facility] Emergency Department [address] [place] [address] Kirit Everett DO [address] [id number] Acute cystitis with hematuria (Primary Dx); Generalized [...] In the past 12 months has e [employer] of [employer], gas, oil, or water [employer] threatened to shut off services in your [...] answer 08/15/2023 How often do you attend [facility] or temple services? Patient unable to answer [...] on file Legal Sex Female 12:24 AM CONCERT SINGER Gender Identity Not on file Sexual Orientation [...] Urinary Tract Infection in Women (Discharge Care) (Surinamese) documented in this encounter Medications at Time of Discharge albuterol HFA (PROVENTIL HFA,VENTOLIN HFA,PROAIR HFA) 90 mcg/actuation inhaler Inhale 2 puffs every 6 (six) hours as needed for wheezing or shortness of breath 04/19/2021 BD Ultra-Fine Short Pen Needle 31 gauge x 5/16 needle USE 6 TIMES DAILY DIRECTED 06/24/2021 blood glucose diagnostic ([employer] Ultra Test) strip 4 (four) times a [...] Use: Not At Risk (06/16/2023) Received from [employer], [facility] [employer] AUDIT-C Frequency of Alcohol Consumption: Never Average [...] 0.1 oz) SpO2 99% BMI 49.70 kg/m?? [facility] ED Course as of 12/29/23406 Time: [...] bacterial yesenia. (.) Comment:Testing performed by : [facility], [address], [place]., [address] Organism ESCHERICHIA COLI MARY JANE PHAM Organism PLUS GROWTH OF CLINICALLY INSIGNIFICANT YESENIA. MARY JANE PHAM Urine 12/28/2023 7:20 PM CDT 12/29/2023 1:25 AM CDT Narrative MARY JANE PHAM - 12/30/2023 3:23 PM CDT Urine culture reflexed based upon urinalysis results. Testing performed by [facility] Microbiology Laboratory ([phone]) Organism Antibiotic Method Susceptibility Escherichia coli Ampicillin [...] GENERAL ORD ERABLES Final Result MARY JANE [address] [facility] [place] [address] * (ABNORMAL) Urinalysis, microscopic only (12/28/2023 7:20 PM CDT) WBC, ur 21-50(A) 0 - 5 /HPF Comment:Testing performed by : [facility], [address] [place] [address]., [address] RBC, ur 3-5(A) 0 - 2 /HPF MARY JANE Comment:Testing performed by : [address] [address] Epithelial cells, squamous, ur 6-10(A) 0 - 5 /HPF MARY JANE Comment:Testing performed by : [address] [address] Bacteria, ur Trace(A) MARY JANE Comment:Testing performed by : [address] [address] Mucous, ur Present(A) MARY JANE PHAM Comment:Testing performed by : [address] [address] Culture Reflex Comment Reflex to urine culture will be performed. MARY JANE Comment:Testing performed by : [address] [address] Urine 12/28/2023 7:20 PM CDT 12/28/2023 7:25 PM CDT Kirit Everett DO LAB URINE ORDERABLES Final Res ult MARY JANE [address] [facility] Department of Laboratories [place], [place] [id number] * (ABNORMAL) Urinalysis reflex to microscopic and culture Urine (12/28/2023 7:20 PM CDT) Color, ur Yellow Yellow Comment:Testing performed by : [address] [address] Clarity, ur Clear Clear MARY JANE Comment:Testing performed by : [address] [address] Specific gravity, ur 1.021 1.003 - 1.030 MARY JANE Comment:Testing performed by : [address] [address] pH, urine 5.5 MARY JANE Comment: Interpretive Data ? Urine pH is affected by diet, medications, systemic acid-base disturbances, and renal tubular function. ??pH may affect urinary stone formation. ??For example, urine pH below 6.0 may help reduce the tendency for calcium phosphate stones and pH greater than 6.0 may reduce the tendency for uric acid stone formation. Source: [facility] [employer] Current Interpretive Data was last revised on 2017 Testing performed by: [address] [address] Protein, ur ql Negative Negative MARY JANE Comment:Testing performed by : [address] [address] Glucose, ur ql Negative Negative MARY JANE Comment:Testing performed by : [address] [address] Ketones, ur Negative Negative MARY JANE Comment:Testing performed by : [facility], [address] [place] [address], [place]., [address] Bilirubin, ur Negative Negative MARY JANE Comment:Testing performed by : [facility], [address] [place] [address], [place]., [address] Blood, ur Trace(A) Negative MARY JANE Comment:Testing performed by : [address], [place]., [address] Urobilinogen, ur <2.0 <2.0 mg/dL MARY JANE Comment:Testing performed by : [facility], [address] [place] [address], [place]., [address] Nitrite, ur Positive(A) Negative MARY JANE Comment:Testing performed by : [address], [place]., [address] Leukocyte esterase, ur 2+(A) Negative MARY JANE Comment:Testing performed by : [address], [place]., [address] UA reflex comment Reflex to microscopic UA will be performed. MARY JANE Comment:Testing performed by : [facility], [address] [place] [address], [place]., [address] Urine 12/28/2023 7:20 PM CDT 12/28/2023 7:25 PM CDT us Kirit Everett DO LAB MICROBIOLOGY - GENERAL ORD ERABLES Final Result MARY JANE [address] [facility] [place] [address] * (ABNORMAL) D-dimer, quantitative (12/28/2023 [...] last revised on 2019. Testing performed by: [address] [address] Blood 12/28/2023 6:39 PM CDT 12/28/2023 6:45 PM CDT us Kirit Everett DO LAB BLOOD ORDERABLES Final Res ult Performing Organization Address City/[facility]/ZIP Co de Phone Number [facility] [address] [facility] [place] [address] * (ABNORMAL) Troponin T high-sensitivity 6-hour (12/28/2023 6:39 PM CDT) Trop T hs 17(H) <=14 ng/L Comment: Interpretive Data For further hscTnT resources including the diagnostic algorithm and an aid in interpretation, copy and paste this link: https://nrl.testcatalog.org/show/hsTrop Current Interpretive Data last revised 2020. Testing performed by: [address] [address] Trop T hs delta -2 ng/L MARY JANE Comment:Testing performed by : [address] [address] Trop T hs interp Insignificant MARY JANE Comment:Testing performed by : [address] [address] Blood 12/28/2023 6:39 PM CDT 12/28/2023 6:45 PM CDT us Felicitas Escudero MD LAB BLOOD ORDERABLES Final Result Performing Organization Address City/[facility]/ZIP Co de Phone Number [facility] [address] [facility] [employer] [place] [address] * XR Chest 1 View (12/28/2023 6:25 [...] PM T: ??12/28/2023 6:39 PM Report ID: [id number] Reading Location: ??[id number] Procedure Note Juve Gallegos MD - 12/28/2023 [...] Juve Gallegos M.D. AR: VALERY Report ID: [id number] Reading Location: [id number] us Kirit Karlos DO IMG XR PROCEDURES Final Result * POCT glucose (12/28/2023 5:46 PM CDT) [facility] Glucose, POC 124 70 - 199 mg/dL Comment:Testing performed by : [address] [address] Blood 12/28/2023 5:46 PM CDT 12/28/2023 5:46 PM CDT Notinfile Unknown LAB POCT ORDERABLES - DEVICE F inal Result MARY JANE [address] [facility] Department [place] [address] * (ABNORMAL) Troponin T high-sensitivity 2-hour (12/28/2023 2:24 PM CDT) [facility] Trop T hs 19(H) <=14 ng/L Comment: Interpretive Data For further hscTnT resources including the diagnostic algorithm and an aid in interpretation, copy and paste this link: https://nrl.testcatalog.org/show/hsTrop Current Interpretive Data last revised 2020. Testing performed by: [address] [address] Trop T hs delta 0 ng/L MARY JANE PHAM Comment:Testing performed by : [address] [address] Trop T hs interp Insignificant MARY JANE PHAM Comment:Testing performed by : [address] [place] [address] Blood 12/28/2023 2:24 PM CDT 12/28/2023 2:32 PM CDT Felicitas Escudero MD LAB BLOOD ORDERABLES Final Result Performing Organization Address City/State/[facility] Co ne Phone Number [facility] [phone] [facility] Department [place] [address] * eGFR (12/28/2023 12:53 PM [...] was last reviewed 2021. Testing performed by: [facility], [address] [place] [address]., [address] Blood 12/28/2023 12:5 3 PM CDT 12/28/2023 12:57 PM CDT us Kirit Everett DO LAB BLOOD ORDERABLES Final Res ult MARY JANE [address] [facility] Department [place] [address] * (ABNORMAL) Differential, auto (12/28/2023 12:53 PM CDT) Neutrophil abs 9.0(H) 1.5 - 6.5 K/cumm Comment:Testing performed by : [address] [address] Imm gran abs 0.1 0.0 - 0.1 K/cumm MARY JANE Comment:Testing performed by : [address] [address] Lymphocyte abs 2.5 0.8 - 3.3 K/cumm MARY JANE Comment:Testing performed by : [address] [address] Monocyte abs 0.9(H) 0.2 - 0.8 K/cumm MARY JANE Comment:Testing performed by : [address] [address] Eosinophil abs 0.2 0.0 - 0.5 K/cumm MARY JANE Comment:Testing performed by : [address] [address] Basophil abs 0.0 0.0 - 0.1 K/cumm MARY JANE Comment:Testing performed by : [address] [address] Neutrophil pct 71.6 % MARY JANE Comment: Interpretive Data Percent cell count reference ranges are not reported, since discordance with absolute values may lead to misinterpretation of CBC data. Current Interpretive Data was last revised on 2017. Testing performed by: [address] [address] Imm gran pct 0.4 % MARY JANE Comment: Interpretive Data Percent cell count reference ranges are not reported, since discordance with absolute values may lead to misinterpretation of CBC data. Current Interpretive Data was last revised on 2017. Testing performed by: [address] [address] Lymphocyte pct 19.5 % [facility] Comment: Interpretive Data Percent cell count reference ranges are not reported, since discordance with absolute values may lead to misinterpretation of CBC data. Current Interpretive Data was last revised on 2017. Testing performed by: [address] [address] Monocyte pct 7.0 % [facility] Comment: Interpretive Data Percent cell count reference ranges are not reported, since discordance with absolute values may lead to misinterpretation of CBC data. Current Interpretive Data was last revised on 2017. Testing performed by: [address] [address] Eosinophil pct 1.2 % [facility] Comment: Interpretive Data Percent cell count reference ranges are not reported, since discordance with absolute values may lead to misinterpretation of CBC data. Current Interpretive Data was last revised on 2017. Testing performed by: [address] [address] Basophil pct 0.3 % [facility] Comment: Interpretive Data Percent cell count reference ranges are not reported, since discordance with absolute values may lead to misinterpretation of CBC data. Current Interpretive Data was last revised on 2017. Testing performed by: [address] [address] Blood 12/28/2023 12:5 3 PM CDT 12/28/2023 12:57 PM CDT us Kirit Everett DO LAB BLOOD ORDERABLES Final Res ult MARY JANE [address] [facility] [place] [address] * (ABNORMAL) Troponin T high-sensitivity series (baseline, 2hr, 4hr, 6hr) (12/28/2023 12:53 PM CDT) Trop T hs 19(H) <=14 ng/L Comment: Interpretive Data For further hscTnT resources including the diagnostic algorithm and an aid in interpretation, copy and paste this link: https://nrl.testcatalog.org/show/hsTrop Current Interpretive Data last revised 2020. Testing performed by: [facility], [address] [place] [address], [place]., [address] Blood 12/28/2023 12:5 3 PM CDT 12/28/2023 12:57 PM CDT us Kirit Everett DO LAB BLOOD ORDERABLES Final Res ult MARY JANE [address] [facility] [place] [address] * Pro B-type natriuretic peptide [...] Last Revised Date: 2017. Testing performed by: [address] [address] Blood 12/28/2023 12:5 3 PM CDT 12/28/2023 12:57 PM CDT us Kirit Everett DO LAB BLOOD ORDERABLES Final Res ult MARY JANE [address] [facility] Department of Laboratories [place], [place] [id number] * Comprehensive metabolic panel (12/28/2023 12:53 PM CDT) Sodium 138 135 - 145 mmol/L Comment:Testing performed by : [address] [address] Potassium, pl 4.3 3.3 - 4.9 mmol/L MARY JANE Comment:Testing performed by : [address] [address] Chloride 105 97 - 110 mmol/L MARY JANE Comment:Testing performed by : [address] [address] CO2 23 22 - 32 mmol/L MARY JANE PHAM Comment:Testing performed by : [address] [address] Anion gap 10 2 - 15 mmol/L MARY JANE PHAM Comment:Testing performed by : [address] [address] BUN 12 6 - 25 mg/dL MARY JANE PHAM Comment:Testing performed by : [address] [address] Creatinine 0.60 0.60 - 1.10 mg/dL MARY JANE Comment:Testing performed by : [address] [address] Glucose 178 70 - 199 mg/dL MARY [...] was last revised 2022. Testing performed by: [address] [address] Calcium 9.0 8.5 - 10.3 mg/dL MARY JANE Comment:Testing performed by : [address] [address] Bilirubin, total 0.6 0.1 - 1.2 mg/dL MARY JANE Comment:Testing performed by : [address] [address] Protein, pl 8.1 6.5 - 8.5 g/dL MARY JANE Comment:Testing performed by : [address] [address] Albumin 3.9 3.5 - 5.0 g/dL MARY JANE Comment:Testing performed by : [address] [address] Alk phos 76 40 - 130 Units/L MARY JANE Comment:Testing performed by : [address] [address] ALT 19 7 - 45 Units/L MARY JANE Comment:Testing performed by : [address], [address] AST 18 10 - 45 Units/L MARY JANE Comment:Testing performed by : [address] [address] Blood 12/28/2023 12:5 3 PM CDT 12/28/2023 12:57 PM CDT Kirit Everett DO LAB BLOOD ORDERABLES Final Res ult [facility] [address] [facility] [place] [address] * (ABNORMAL) CBC with auto differential (12/28/2023 12:53 PM CDT) WBC 12.6(H) 3.8 - 9.9 K/cumm Comment:Testing performed by : [address] [address] Hgb 13.2 11.9 - 15.5 g/dL MARY JANE Comment:Testing performed by : [address] [address] Hct 40.9 35.6 - 45.5 % MARY JANE Comment:Testing performed by : [address] [address] Plt 272 150 - 400 K/cumm MARY JANE Comment:Testing performed by : [address] [address] MPV 9.2 9.1 - 12.3 fL MARY JANE Comment:Testing performed by : [address] [address] RBC 4.59 3.90 - 5.20 M/cumm MARY JANE Comment:Testing performed by : [address] [address] MCV 89.1 81.3 - 96.4 fL MARY JANE Comment:Testing performed by : [address] [address] MCH 28.8 27.1 - 33.3 pg MARY JANE Comment:Testing performed by : [address] [address] MCHC 32.3 32.3 - 35.7 g/dL MARY JANE Comment:Testing performed by : [address] [place] [address] RDW CV 14.6 11.1 - 14.9 % MARY JANE PHAM Comment:Testing performed by : [address] [address] RDW SD 47.4 35.7 - 48.1 fL MARY JANE PHAM Comment:Testing performed by : [address] [address] NRBC abs 0.00 0.00 - 0.01 K/cumm MARY JANE PHAM Comment:Testing performed by : [address] [address] Blood 12/28/2023 12:5 3 PM CDT 12/28/2023 12:57 PM CDT Kirit Everett DO LAB BLOOD ORDERABLES Final Res ult MARY JANE [address] [facility] [place] [address] * ECG 12 lead (12/28/2023 12:49 PM CDT) Ventricular Rate EKG/Min 75 BPM [facility] Atrial Rate 75 BPM [facility] NM-Interval (MSEC) 126 ms [facility] QRS-Interval (MSEC) 86 ms [facility] QT-Interval (MSEC) 386 ms [facility] QTc 431 ms [facility] P Marcella 37 degrees [facility] R Marcella -1 degrees [facility] T Marcella 38 degrees [facility] Diagnosis Normal sinus rhythm Normal ECG When compared with ECG of 31-OCT-2023 16:17, No significant change was found Confirmed by DELILAH MCNAIR M.D. ([id number]) on 12/30/2023 9:58:48 PM [facility] 12/28/2023 12:4 9 PM CDT 12/30/2023 9:58 PM CDT [employer] Kirit Everett DO ECG ORDERABLES Final Result Performing Organization Address City/[facility]/ZIP Co de Phone Number [facility] [...] RN) documented in this encounter Care Teams Programmer Or Analyst Relationship Specialty Start Date End Date Justen Gale MD 2 [facility] [address] [place] [address] PCP - General 10/09/17 Liu Jerez MD Consulting Physician Gastroenterology 07/28/17 [place] [address] [facility] [address] [place] [address] Consulting Physician Pulmonary Disease 08/03/17 Khris Arthur MD [address] [facility] [address] [place] [address] Medical Oncologist/Receivables Specialist Medical Oncology 10/23/17 [place] [address] [facility] [address] [place] [address] Surgeon Orthopedic Surgery 10/23/17 [place] [address] [facility] [address] [place] [address] Consulting Physician Pain Management 10/23/17 [place] [address] [facility] [address] [place] [address] Referring Physician General Surgery 01/26/18 [place] [address] [facility] [address] [place] [address] Consulting Physician Neurology 01/26/18 documented as of this encounter
--- OUTSIDE RECORDS SUMMARY | 2024-04-26 09:13 | XMS_ITS | Encounter Summary ---
Author Organization [facility] Healthcare Address [address] [place] [address] Care Team Providers Care Belt Sander Name Role Phone Liu Jerez MD Unavailable Albert Corbin MD Unavailable [phone] Justen Gale MD Primary Care Provider [phone] Khris Arthur MD Unavailable [phone] Ko Melendez MD Unavailable John Paul Moyer MD Unavailable Annel Rod MD Unavailable Anali MARSHALL MD, Carlos M. Unavailable Encounter Details Date Type Department Care Team (Latest Contact Info) Description 10/03/2023 2:23 PM CDT - 10/03/2023 11:59 PM CDT Hospital Encounter [facility] [address] [place] [id number] Discharge Disposition: Discharge to home or self care Social History Tobacco Use Types Packs/Day Years Used Date Smoking Tobacco: Former Smokeless Tobacco: Never Comments:remote tobacco use Alcohol Use Standard Drinks/Week Comments No 0 (1 standard drink = 0.6 oz pur e alcohol) [facility] Utilities Answer Date Recorded In the [...] How often do you attend chur or congregation services? 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 Gender Identity Not on file Sexual [...] on filedocumented in this encounter Care Teams Belt Sander Relationship Specialty Start Date End Date Justen Gale MD 2 [facility] [address] [place] [address] PCP - General 10/09/17 Liu Jerez MD Consulting Physician Gastroenterology 07/28/17 [place] [address] [facility] [address] [place] [address] Consulting Physician Pulmonary Disease 08/03/17 Khris Arthur MD [address] [facility] [address] [place] [address] Medical Oncologist/Shipping Supervisor Medical Oncology 10/23/17 [place] [address] [facility] [address] [place] [address] Surgeon Orthopedic Surgery 10/23/17 [place] [address] [facility] [address] [place] [address] Consulting Physician Pain Management 10/23/17 [place] [address] [facility] [address] [place] [address] Referring Physician General Surgery 01/26/18 [place] [address] [facility] [address] [place] [address] Consulting Physician Neurology 01/26/18 documented as of this encounter
--- OUTSIDE RECORDS SUMMARY | 2024-04-26 09:13 | XMS_ITS | Encounter Summary ---
Author Organization [facility] Address [address] [place] [address] Care Team Providers Care Customer Counter Representative Name Role Phone Liu Jerez MD Unavailable [phone] Albert Corbni MD Unavailable [phone] Justen Gale MD Primary Care Provider Khris Arthur MD Unavailable Ko Melendez MD Unavailable [phone] John Paul Moyer MD Unavailable Annel Rod MD Unavailable Anali MARSHALL MD, Carlos M. Unavailable Reason for Visit * Episode Based Medications (Routine) - Authorized Specialty Diagnoses / Procedures Referred By Contkristina t Referred To Contact Oncology Diagnoses Malignant neoplasm of upper-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, unspecified estrogen receptor status (HCC) half-way (current) use 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 inhibitors Bone disorder Khris Arthur MD [address] [facility] [address] [place] [address] Phone: tel: fax: [facility] [address] [place] [address] [facility] 7th [place] [address] Phone: tel: Referral ID Status Reason Start Date Expiration Date V isits Requested Visits Authorized [id number] Authorized 08/02/2022 07/31/2024 1 60 Encounter Details Date Type Department Care Team (Late st Contact Info) Description 11/21/2023 3:30 PM CDT Infusion [facility] and [address] 7[address] [place] [id number] Malignant neoplasm of upper-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, unspecified estrogen receptor status (HCC) (Primary Dx); Malignant neoplasm of upper-inner quadrant of left breast in female, estrogen receptor positive (HCC); half-way (current) use 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 inhibitors; Bone disorder Social History Tobacco Use Types Packs/Day Years Used Date Smoking Tobacco: Former Smokeless Tobacco: Never Comments:remote tobacco use Alcohol Use Standard Drinks/Week Comments No 0 (1 standard drink = 0.6 oz pur e alcohol) [facility] Utilities Answer Date Recorded In the past 12 months has [employer], gas, oil, or water [facility] threatened to shut off services in your [...] you attend chur ch or methodist services? 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 Bone disorder Disorder of bone and cartilage, unspecified documented in this encounter Administered Medications Inactive Administered Medications - up to 3 most recent administrations Medication Order MAR Action Action Date Dose Rate Site zoledronic adfz-clbszjjQ-eibqw (RECLAST) 5 mg/100 mL premix 5 mg 5 mg, intravenous, at 300 mL/hr, Administer over 20 Minutes, Once, On Mon11/21/23 at 1730, For 1 doseIndications:Malignant neoplasm of upper-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, unspecified estrogen receptor status (HCC),half-way (current) use 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 inhibitors,Bone disorder New Bag 11/21/2023 5:43 PM CDT 5 mg 300 mL /hr documented in this encounter Orders Medications Ordered That Tyler ht Not Have Been Administered Count Last Ordered Date First Ordered Date zoledronic cvgj-qmdfeefT-uzh er (RECLAST) 5 mg/100 mL premix 5 mg 1 11/21/2023 Nursing Count Last Ordered Date First Orde red Date ONCBCN PROVIDER COMMUNICATION INPT LABS 1 0 11/21/2023 Appointment Requests Count Last Ordered Date Fi rst Ordered Date INFUSION APPT REQUEST 60 MIN 1 11/21/2023 documented in this encounter Care Teams Customer Counter Representative Relationship Specialty Start Date End Date Justen Gale MD [address] [place] [address] PCP - General 10/09/17 Liu Jerez MD Consulting Physician Gastroenterology 07/28/17 [place] [address] [place] [address] Consulting Physician Pulmonary Disease 08/03/17 Khris Arthur MD [address] [facility] [address] [place] [address] Medical Oncologist/Php Developer Medical Oncology 10/23/17 [place] [address] [place] [address] Surgeon Orthopedic Surgery 10/23/17 [place] [address] [place] [address] Consulting Physician Pain Management 10/23/17 [place] [address] [facility] [address] [place] [address] Referring Physician General Surgery 01/26/18 [place] [address] [address] [place] [address] Consulting Physician Neurology 01/26/18 documented as of this encounter
--- OUTSIDE RECORDS SUMMARY | 2024-04-26 09:13 | XMS_ITS | Encounter Summary ---
Author Organization [facility] Address [address] [place] [address] Care Team Providers Care Medical Assistant Cardiology Name Role Phone Justen Gale MD Primary Care Provider Reason for Visit * Reason Comments Loss [...] By Elyssa benavides Referred To Contact [facility] Neuro [address] [place] [address] Referral ID Status Reason Start Date Expiration Date Visits Re quested Visits Authorized [id number] 09/29/2017 10/30/2018 1 Encounter Details Date Type Department Care Team (Late st Contact Info) Description 09/28/2017 9:22 PM CDT - 09/30/2017 5:26 PM CDT Emergency [facility] Neurology [address] [place] [address] Vitaliy Boykin MD [address] [facility] [place] [address] Veena Ferraro MD [address] [address] Francisco Castaneda MD [address] [place] [id number] De Monterroso MD [address] [place] [id number] Syncope Discharge Disposition: Home or Self Care [...] from the original note were not included. [facility] Adult Hospitalist Discharge Summary Mohsen Marques 62 y.o. female 1955 CSN: [id number] Date of Admission: 09/28/2017 Date of Discharge: [...] fluid overload. DICTATION LOCATION: Location 1 - [facility] Echo : Left ventricle: The [...] Monterroso MD and may be reached at [phone] for any questions or concerns until you [...] is not relieved by nitroglycerin. Smoking Exposure: [facility] encourages all patients to decrease risks associated with smoking and second hand smoke exposure. If you smoke you are advised to quit. Ask your health care provider for advice if you need assistance to stop smoking. Avoid second-hand smoke exposure and do not let people smoke in your home. Please call [phone], our pulmonary rehabilitation department, to learn more [...] mg by mouth daily at bedtime. 05/11/2012 exemestane (AROMASIN) 25 mg Tablet Take 25 mg by mouth daily. rivaroxaban (XARELTO) 10 mg Tablet Take 10 mg by mouth daily. 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 * Marce Hawkins NP - 09/29/2017 8:20 PM CDT [facility] Call Called for: [...] PM CDT Non-Invasive Cardiology Lexiscan Test Protocol [facility] ORDERS ARE ENTERED ???PER PROTOCOL?? Enter the protocol in the patient???s electronic health record using smartFood Reporterrase: .lexiscanprotocol Nursing Communication Orders: Prior to testing [...] Chest pain. Takes norco at home. AOx3. [place] ordered. documented in this encounter H&P Notes * Francisco Castaneda MD - 09/29/2017 7:48 AM CDT [facility] Adult Hospitalist Admission H & [...] a syncopalepisode. Her prior care was at [place] where she was treated for breast cancer. [...] 99 mg/dL COMMENT, GLU POC Notified RN/MD CEMENT CONTRACTOR NAME JOAQUÍN EDWARD URINALYSIS WITH REFLEX MICROSCOPIC [...] is from orthostatic or vasovagal -hold her PAYROLL AND BENEFITS COORDINATOR lisinopril as her BP okay -check orthostatic [...] AM CDT Non-Invasive Cardiology Lexiscan Test Protocol [facility] ORDERS ARE ENTERED ???PER PROTOCOL?? Enter the [...] Enhancing Agent Definity (Perflutren Lipid Microsphere) Protocol [facility] ORDERS ARE ENTERED ???PER PROTOCOL?? Enter the protocol in the patient???s electronic health record using Kuailexuee: .definityprotocol Diagnostic Test Orders: 1. Verify patient [...] ??? Patient is technically difficult to image ([place] Society of Echocardiography guidelines of 2or more segments within the apical views not discernable) ??? The question of left ventricular function has been raised 4. Educate patient or responsible constitution party on Definity indications and side effects. 5. Have emergency equipment available 6. Definity may be ordered by a credentialed provider, RN or batch records clerk 7. Enter Definity medication order per protocol and document using smartphrase .definityprotocol 8. Change procedure order to include contrast 9. Verify peripheral or central line IV access. If IV access not available a trained batch records clerk RupaliN may place peripheral IV access as [...] the diluted Definity 11. RN or trained batch records clerk may discontinue peripheral IV access when IV no longer required for treatment Medication Orders: ??? Perflutren Lipid microspheres (DEFINITY) 1.1 mg/mL injection, 2mL given IV intra-procedure, onetime only. Initiating Department(s): Pharmacy, Nursing, Noninvasive Cardiology Reviewed: 12/2010; 06/2011; 08/21/2011; 08/2014, 10/2015, 06/2016;05/2017 Revised: 12/2010; 06/2011; 08/21/2011; 08/2014, 10/2015; 06/2016 Approved by: [facility], Nursing, P&T, and Noninvasive Cardiology Date:05/2017 [...] PM CDT Emergency Department Adult Syncope Protocol [facility] ORDERS ARE ENTERED ???PER PROTOCOL?? Nursing Orders: o Insert peripheral IV o Keep NPO Laboratory Orders: o CBC with diff ([id number]) o CMP (LAB17) o TSH Reflexive ([id number]) o Urinalysis with Reflex Microscopy ([id number]) o If female of childbearing age: POC Urine HCG (POC7) or HCG Qualitative urine ([id number]) if sending to lab o POC Glucose (POC10) o PT/INR ([id number]) if on Coumadin Diagnostic Test Orders: o [...] by: Brigitte Atkinson RN, BSN, DAVID Nurse Closet Organizer Approved by: Medical Executive Committee, Nursing, Pharmacy [...] 339 (*) COMMENT, GLU POC Notified RN/MD CEMENT CONTRACTOR NAME JOAQUÍN EDWARD TSH - Normal TSH [...] fluid overload. DICTATION LOCATION: Location 1 - [facility] EKG: NSR rate 94, No acute changes noted. PROCEDURES Procedures MEDICAL DECISION MAKING AND PLAN OF CARE On initial exam, discussed plan review lab, chest XR and EKG results. 9:20 PM: Discussed with CURTIS Sheppard, for Dr. Ferraro ([facility] Hospitalist) [facility] 10:53 PM Updated patient on results, diagnosis, [...] Date/Time Comment Admit Stable Vitaliy Boykin MD [facility] Sep 28, 2017 10:49 PM Disposition: Patient [...] pain intervention: Appeared content Living Situation/Functional Level PAYROLL AND BENEFITS COORDINATOR: Pt lives with dtr in 1 level [...] Home with supervision P:D/C OT Zone #: 24534 * Therapy Evaluation - Miracle Souza Physical [...] pain intervention: Appeared content Living Situation/Functional Level PAYROLL AND BENEFITS COORDINATOR: Lives with dtr in 1 level home [...] section of the medical chart. Zone #: 35024 * Care Plan - Marya Monsivais RCP [...] pain meds available; patient agreed to a [place]. Plan isfor her to repeat stress test tomorrow. Will continue to monitor. * Care Plan - Aislinn Villarreal RN - 09/29/2017 2:43 PM CDT Pt has been resting quietly all shift, had c/o chest pain [place] given x1 with stated relief. Pt hasbeen NPO for stress test this afternoon and is currently off the floor having it done. Might be able to change diet when she returns. * Care Plan - Maira Burgess RN - 09/29/2017 9:45 AM CDT [facility]: Adult and Obstetrics Day 1 ??? [...] assistance with bathing, dressing, meal preparation, medications, search advertising strategist, laundry, shopping, transportation from daughter, . Daughter [...] Score Primary Emergency Contact: Yunior Marques(daughter) @ [phone]. PCP verified as Justen Gale MD. Patient's insurance verified as Payor: [facility] / Plan: [facility] MEDICARE COMPLETE PPO / Product Type: Medicare Managed Care & [place] Public [facility]/Medicaid. The patient's preferred pharmacy is [facility] in [place], [place]. Discussed discharge goals and possible discharge [...] and assist as needed. Italia Burgess RN [phone] * Care Tiffany - Yris Feliz RN [...] - 99 mg/dL 09/30/2017 5:52 PM CDT [facility] CEMENT CONTRACTOR NAME POC ISHAN QUIROS (LJ) 09/30/2017 5:52 PM CDT [facility] Whole blood specimen (specimen) 09/30/2017 5:39 PM CDT 09/30/2017 5:52 PM CDT De Monterroso MD POINT OF CARE TESTELIZABETH Rodriguez Performing Organization Address City/[facility]/ZIP Co de Phone Number [facility] [employer] [facility] CLIA# [id number] [address] [place] [address] * (ABNORMAL) POC GLUCOSE (09/30/2017 4:59 PM CDT) GLUCOSE POC 187(H) 74 - 99 mg/dL 09/30/2017 5:11 PM CDT [facility] CEMENT CONTRACTOR NAME POC MARCE VAUGHAN 09/30/2017 5:11 PM CDT [facility] Whole blood specimen (specimen) 09/30/2017 4:59 PM CDT 09/30/2017 5:11 PM CDT De Monterroso MD POINT OF CARE TESTELIZABETH Rodriguez [facility] [employer] [facility] CLIA# [id number] [address] [place] [address] * (ABNORMAL) POC GLUCOSE (09/30/2017 2:08 PM CDT) GLUCOSE POC 142(H) 74 - 99 mg/dL 09/30/2017 2:20 PM CDT [facility] CEMENT CONTRACTOR NAME POC ISHAN QUIROS (LJ) 09/30/2017 2:20 PM CDT [facility] Whole blood specimen (specimen) 09/30/2017 2:08 PM CDT 09/30/2017 2:20 PM CDT De Monterroso MD POINT OF CARE TESTIN G [facility] [id number] [address] [place] [address] * NM MYOCARD PERF IMAG SPECT MULT [...] INTERFACE SYSTEM - 09/30/2017 3:19 PM CDT [address] [address] [email or web address] Transthoracic Echocardiography Patient: ?Mohsen Marques MRN: ?[id number] Study ID: ? [id number] Gender: ? F : ?1955 Age: ?62 Race: ? CAU Height ?154.9cm Study Date: ? 09/30/2017 Weight: ? 122.5kg Access. #: ?[id number] Account #: ?[id number] BP: *Referring Physician:* Francisco Castaneda *Ordering Physician:* ??Francisco Castaneda Medical Physics Teacher: Indications: Chronic hypertension. ??Syncope / Near syncope. [...] AM. ?Prepared and Electronically Authenticated Justen Hampton [id number] Procedure Note Justen Hampton MD - 09/30/[address] [address] [email or web address] medical [email or web address] Transthoracic Echocardiography Patient: Mohsen Marques Study ID: [id number] Gender: F : 1955 Age: 62 Race: [facility] Height 154.9cm Study Date: 09/30/2017 Weight: 122.5kg Access. #: [id number] BP: *Referring Physician:* Francisco Castaneda *Ordering Physician:* Francisco Castaneda Medical Physics Teacher: Indications: Chronic hypertension. Syncope / Near syncope. [...] AM. Prepared and Electronically Authenticated Justen Hampton [id number] Francisco Castaneda MD US ORDERABLES INTERFACE SYSTEM Refer to clinic/hospital department * (ABNORMAL) POC GLUCOSE (09/30/2017 8:07 AM CDT) GLUCOSE POC 178(H) 74 - 99 mg/dL 09/30/2017 8:19 AM CDT [facility] CEMENT CONTRACTOR NAME MARCE PRATER 09/30/2017 8:19 AM CDT [facility] [employer] [facility] Whole blood specimen (specimen) 09/30/2017 8:07 AM CDT 09/30/2017 8:19 AM CDT De Monterroso MD POINT OF CARE TESTIN G Performing Organization Address City/[facility]/ZIP Co de Phone Number [facility] [employer] [facility] CLIA# [id number] [facility] [place] [address] [address] [place] [address] * (ABNORMAL) POC GLUCOSE (09/30/2017 4:12 AM CDT) GLUCOSE POC 177(H) 74 - 99 mg/dL 09/30/2017 4:30 AM CDT [facility] SERVICES [facility] COMMENT, GLU POC Notified RN/MD 09/30/2017 4:30 AM CDT [facility] LABOR[facility]ORY SERVICES - [facility] CEMENT CONTRACTOR NAME POC SARBJIT RAMSAYIMOL 09/30/2017 4:30 AM CDT [facility] SERVICES [facility] Whole blood specimen (specimen) 09/30/2017 4:12 AM CDT 09/30/2017 4:30 AM CDT Francisco Castaneda MD POINT OF CARE TESTIN Michael Performing Organization Address [facility] Co de Phone Number [facility] CLIA# [id number] [address] [place] [address] * (ABNORMAL) POC GLUCOSE (09/29/2017 11:59 PM CDT) GLUCOSE POC 156(H) 74 - 99 mg/dL 09/30/2017 4:07 AM CDT [facility] SERVICES [facility] COMMENT, GLU POC Notified RN/ 09/30/2017 4:07 AM CDT [facility]ORY SERVICES [facility] CEMENT CONTRACTOR NAME POC SARBJIT RAMSAYIMOL 09/30/2017 4:07 AM CDT [facility] SERVICES [facility] Whole blood specimen (specimen) 09/29/2017 11:59 PM CDT 09/30/2017 4:07 AM CDT Francisco Castaneda MD POINT OF CARE TESTIN G Performing Organization Address City/[facility]/ZIP Co de Phone Number [facility] CLIA# [id number] [address] [place] [address] * (ABNORMAL) POC GLUCOSE (09/29/2017 8:58 PM CDT) GLUCOSE POC 221(H) 74 - 99 mg/dL 09/29/2017 9:16 PM CDT [facility] CEMENT CONTRACTOR NAME POC NYDIA PELLETIER 09/29/2017 9:16 PM CDT [facility] Whole blood specimen (specimen) 09/29/2017 8:58 PM CDT 09/29/2017 9:16 PM CDT Francisco Castaneda MD POINT OF CARE TESTIN G [facility]# [id number] [address] [place] [address] * (ABNORMAL) POC GLUCOSE (09/29/2017 4:47 PM CDT) GLUCOSE POC 104(H) 74 - 99 mg/dL 09/29/2017 5:01 PM CDT [facility] CEMENT CONTRACTOR NAME POC CHET SANDRITA 09/29/2017 5:01 PM CDT [facility] LAB[facility]ORY SERVICES [facility] Whole blood specimen (specimen) 09/29/2017 4:47 PM CDT 09/29/2017 5:01 PM CDT Francisco Castaneda MD POINT OF CARE TESTIN G [facility]# [id number] [address] [place] [address] * (ABNORMAL) POC GLUCOSE (09/29/2017 10:33 AM CDT) GLUCOSE POC 154(H) 74 - 99 mg/dL 09/29/2017 10:46 AM CDT [facility] CEMENT CONTRACTOR NAME POC SANDRITA ROSENBERG 09/29/2017 10:46 AM CDT [facility] Whole blood specimen (specimen) 09/29/2017 10:33 AM CDT 09/29/2017 10:46 AM CDT Francisco Castaneda MD POINT OF CARE TESTIN G Performing Organization Address [facility] Co de Phone Number [facility] CLIA# [id number] [address] [place] [address] * D-DIMER (09/29/2017 7:49 AM CDT) D-DIMER QUANT <0.27 <0.42 ug/mL FEU 09/29/2017 8:41 AM CDT [facility] Comment: The DIC reference range is not [...] MD HEMATOLOGY ORDERABLE S Performing Organization Address [facility] Co de Phone Number [facility] CLIA# [id number] [address] [place] [address] * TROPONIN (09/29/2017 7:49 AM CDT) TROPONIN T <0.01 <0.04 ng/mL 09/29/2017 8:36 AM CDT [facility] Blood Venipuncture / Unknown 09/29/2017 7:49 AM CDT 09/29/2017 7:58 AM CDT Francisco Castaneda MD CHEMISTRY ORDERABLES Performing Organization Address [facility]/ZIP Co de Phone Number [facility] CLIA# [id number] [address] [place] [address] * (ABNORMAL) URINALYSIS WITH REFLEX MICROSCOPIC (09/28/2017 10:57 PM CDT) COLOR UA Yellow Pale to Dark Yellow 09/28/2017 11:11 PM [facility] [employer] LABORATORY SERVICES - [facility] CLARITY UA Clear Clear 09/28/2017 11:11 PM [facility] [employer] LABORATORY SERVICES - [facility] SPECIFIC GRAVITY UA 1.017 1.003 - 1.035 09/28/2017 11:11 PM [facility] [employer] LAB[facility]ATORY SERVICES - [facility] PH UA 5.0 5.0 - 8.0 09/28/2017 11:11 PM [facility] [employer] LABORATORY SERVICES - [facility] LEUKOCYTE ESTERASE UA Trace(A) Negative 09/28/2017 11:11 PM [facility] [employer] SERVICES - [facility] NITRITE UA Negative Negative 09/28/2017 11:11 PM [employer] LABORATORY SERVICES - [facility] PROTEIN UA Negative Negative 09/28/2017 11:11 PM [facility] [employer] LABORATORY SERVICES - [facility] GLUCOSE UA 3+(A) Negative 09/28/2017 11:11 PM [employer] SERVICES - [facility] KETONES UA Negative Negative 09/28/2017 11:11 PM [employer] LABORATORY SERVICES - [facility] UROBILINOGEN UA Normal <2.0 mg/dL 8 11:11 PM [employer] LABORATORY SERVICES - [facility] BILIRUBIN UA Negative Negative 09/28/2017 11:11 PM [employer] LABORATORY SERVICES - [facility] BLOOD UA 1+(A) Negative 09/28/2017 11:11 PM [employer] LABORATORY SERVICES - [facility] WBC UA 3-5(A) 0 - 2 /hpf 09/28/2017 11:11 PM [employer] LABORATORY SERVICES - . [facility] RBC UA 0-2 0 - 2 /hpf 09/28/2017 11:11 PM [employer] LABORATORY SERVICES - [facility] BACTERIA UA Negative Negative /hpf 09/28/2017 11:11 PM [employer] LABORATORY SERVICES - [facility] EPITHELIAL CELLS, URINE 0-5 0 - 5 /hpf 09/28/2017 11:11 PM [employer] LABORATORY SERVICES - [facility] Urine URINE SPECIMEN OBTAINED BY CLEAN CATCH PROCEDURE / Unknown Collection / Unknown 09/28/2017 10:57 PM CDT 09/28/2017 10:59 PM CDT Vitaliy Boykin MD URINE ORDERABLES [facility] LABORATORY SERVICES [facility]# [id number] [address] [place] [address] * XR CHEST PA AND LATERAL 2 VW (09/28/2017 10:07 PM CDT) Anatomical Region Laterality Modality Chest Computed Radiogr aphy 09/28/2017 10:0 8 PM CDT Impressions 09/28/2017 10:52 PM CDT IMPRESSION: Findings suggesting early fluid overload. DICTATION LOCATION: Location [address] [place] [address] Narrative 09/28/2017 10:52 PM CDT CHEST PA [...] No pneumothorax is evident. Procedure Note Lashell Graec MD - 09/28/2017 CHEST PA AND LATERAL [...] suggesting early fluid overload. DICTATION LOCATION: Location [address] [place] [address] Vitaliy Boykin MD DIAGNOSTIC IMAGING O RDERABLES * (ABNORMAL) POC GLUCOSE (09/28/2017 8:47 PM CDT) GLUCOSE POC 339(H) 74 - 99 mg/dL 09/28/2017 8:59 PM CDT [employer] LABORATORY SERVICES - [facility] COMMENT, GLU POC Notified RN/MD 09/28/2017 8:59 PM CDT [employer] LABORATORY SERVICES - [facility] CEMENT CONTRACTOR NAME POC JOAQUÍN EDWARD 09/28/2017 8:59 PM CDT [employer] [facility]ORY [facility] - [facility] Whole blood specimen (specimen) 09/28/2017 8:47 PM CDT 09/28/2017 8:59 PM CDT Interface Provider Poct POINT OF CARE TE STING [facility] [employer] [facility] [id number] [address] [facility] [place] [address] * (ABNORMAL) LIPID PANEL (09/28/2017 8:41 PM CDT) CHOLESTEROL 174 <200 mg/dL 09/30/2017 2:45 AM CDT [employer] SERVICES - [facility] TRIGLYCERIDE 109 <150 mg/dL 09/30/2017 2:45 AM CDT [employer] SERVICES - [facility] HDL 45 40 - 59 mg/dL 09/30/2017 2:45 AM CDT [employer] SERVICES - [facility] LDL CALCULATED 107(H) <100 mg/dL 09/30/2017 2:45 AM CDT [employer] SERVICES - [facility] NON-HDL CHOLESTEROL 129 <130 mg/dL 09/30/2017 2:45 AM CDT [employer] SERVICES - [facility] Blood Venipuncture / Unknown 09/28/2017 8:41 PM CDT 09/28/2017 8:46 PM CDT Narrative [facility] LAB[facility]ATORY SERVICES - [facility] - 09/30/2017 2:45 AM CDT TOTAL [...] Castaneda MD CHEMISTRY ORDERABLES Performing Organization Address [facility] Number [facility] [employer] [facility]# [id number] [address] [place] [address] * (ABNORMAL) HEMOGLOBIN A1C (09/28/2017 8:41 PM CDT) Pathologist [facility] HEMOGLOBIN A1C 8.1(H) 4.0 - 6.0 % 09/29/2017 10:28 AM CDT [facility] EST. AVG GLUCOSE, A1C 186 mg/dL 09/29/2017 10:28 AM CDT [facility] Blood Venipuncture / Unknown 09/28/2017 8:41 PM CDT 09/28/2017 8:46 PM CDT [facility] [employer] [facility] - 09/29/2017 10:28 AM CDT HGB A1C INTERPRETATION NORMAL: ? <5.7% PRE-DIABETES: 5.7 - 6.4% DIABETES: ? 6.5% OR GREATER Francisco Castaneda MD CHEMISTRY ORDERABLES Performing Organization Address [facility] Phone Number [facility] [employer] [facility]# [id number] [address] [facility] [place] [address] * BRAIN NATRIURETIC PEPTIDE, BNP OR PROBNP (09/28/2017 8:41 PM CDT) Pathologist [facility] PROBNP, N TERMINAL <50 <124 pg/mL 2017 10:16 PM CDT [facility] Comment: Reference values for screening purposes based on lead installer's recommendation: Patients less than 75 years: <125 [...] Boykin MD CHEMISTRY ORDERABLES Performing Organization Address [facility] Co de Phone Number [facility]# [id number] [address] [place] [address] * TROPONIN (09/28/2017 8:41 PM CDT) TROPONIN T <0.01 <0.04 ng/mL 09/28/2017 10:16 PM CDT [facility] [employer] [facility] Blood Venipuncture / Unknown 09/28/2017 8:41 PM CDT 09/28/2017 8:46 PM CDT Vitaliy Boykin MD CHEMISTRY ORDERABLES Performing Organization Address [facility] de Phone Number [facility]# [id number] [address] [place] [address] * PTT (09/28/2017 8:41 PM CDT) PTT 29.0 24.4 - 36.4 seconds 09/28/2017 9:17 PM CDT [facility] [employer] [facility] Comment: PTT Therapeutic Range: Heparin Level ? PTT (seconds) <0.10 units/mL ? <53 0.10 - 0.30 units/mL ? 53 - 67 0.30 - 0.70 units/mL* ?67 - 95* 0.70 - 1.00 units/mL ? 95 - 116 *corresponds to therapeutic range for unfractionated heparin Blood Venipuncture / Unknown 09/28/2017 8:41 PM CDT 09/28/2017 8:46 PM CDT Vitaliy Boykin MD HEMATOLOGY ORDERABLE S [facility] LABORATORY [facility]# [id number] [address] [place] [place] [address] * (ABNORMAL) PROTIME-INR (09/28/2017 8:41 PM CDT) PROTIME 14.8 12.7 - 15.1 Seconds 09/28/2017 9:17 PM CDT [facility] INR 1.2(H) 0.9 - 1.1 09/28/2017 9:17 PM CDT [facility] Blood Venipuncture / Unknown 09/28/2017 8:41 PM CDT 09/28/2017 8:46 PM CDT Narrative [facility] - 09/28/2017 9:17 PM CDT INR Therapeutic Range: Adult: ?? 2.0 - 3.0 for pulmonary embolism or prophylaxis against venous ?thrombosis or systemic embolization. 2.0 - 3.0 for patients with tissue heart valves. 2.5 - 3.5 for patients with mechanical heart valves or post AR. Pediatric ??(12 years and under): 1.5 - 3.0 Although the target range in children is not well established, ?INR values of 1.5 - 3.0 are recommended for most patients. ?Higher values have been used in children with prosthetic ?cardiac valves and hereditary clotting disorders. (<3 days) therapeutic ranges have not been established. Vitaliy Boykin MD HEMATOLOGY ORDERABLE S Performing Organization Address [facility]/ZIP Co de Phone Number [facility]# [id number] [address] [place] [address] * TSH (09/28/2017 8:41 PM CDT) TSH 1.80 0.27 - 4.20 uIU/mL 09/28/2017 10:13 PM CDT [facility] Blood Venipuncture / Unknown 09/28/2017 8:41 PM CDT 09/28/2017 8:46 PM CDT Vitaliy Boykin MD CHEMISTRY ORDERABLES Performing Organization Address [facility]/ZIP Co de Phone Number [facility]# [id number] [address] [place] [address] * (ABNORMAL) COMPREHENSIVE METABOLIC PANEL (09/28/2017 8:41 PM CDT) SODIUM 139 136 - 145 mmol/L 09/28/2017 9:35 PM CDT [facility] POTASSIUM 4.4 3.5 - 5.0 mmol/L 09/28/2017 9:35 PM CDT [facility] CHLORIDE 101 98 - 107 mmol/L 09/28/2017 9:35 PM CDT [facility] CO2 26 22 - 29 mmol/L 09/28/2017 9:35 PM CDT [facility] CALCIUM 9.2 8.6 - 10.2 mg/dL 09/28/2017 9:35 PM CDT [facility] - [facility] BUN 15 8 - 23 mg/dL 09/28/2017 9:35 PM CDT [facility] CREATININE 0.69 0.51 - 0.95 mg/dL 09/28/2017 9:35 PM T [facility] GLUCOSE 330(H) 74 - 99 mg/dL 09/28/2017 9:35 PM [facility] TOTAL PROTEIN 7.9 6.7 - 8.6 g/dL 09/28/2017 9:35 PM [facility] ALBUMIN 3.5 3.5 - 5.2 g/dL 09/28/2017 9:35 PM T [facility] BILIRUBIN TOTAL 0.3 0.2 - 1.1 mg/dL 09/28/2017 9:35 PM [facility] ALKALINE PHOSPHATASE 76 35 - 104 U/L 09/28/2017 9:35 PM [facility] AST 17 <33 U/L 09/28/2017 9:35 PM [facility] ALT 17 <34 U/L 09/28/2017 9:35 PM [facility] GFR >60 >=60 mL/min/1.7 3 sq meter 09/28/2017 9:35 PM [facility] Comment: eGFR has not been validated [...] mL/min/1.7 3 sq meter 09/28/2017 9:35 PM [facility] ANION GAP 12 8 - 16 mmol/L 09/28/2017 9:35 PM [facility] Blood Venipuncture / Unknown 09/28/2017 8:41 PM CDT 09/28/2017 8:46 PM CDT [facility] - 09/28/2017 9:35 PM CDT Samples containing indocyanine green cause interferences on Total and/or Direct Bilirubin and must not be measured. Vitaliy Boykin MD CHEMISTRY ORDERABLES [facility] - [facility]# [id number] [address] [place] [address] * (ABNORMAL) CBC WITH DIFFERENTIAL (09/28/2017 8:41 PM CDT) WBC 10.5(H) 4.0 - 9.8 K/uL 09/28/2017 9:06 PM CDT [facility] - [facility] RBC 4.15 3.90 - 4.90 M/uL 09/28/2017 9:06 PM CDT [facility] - [facility] HEMOGLOBIN 11.1(L) 11.8 - 14.8 g/dL 09/28/2017 9:06 PM CDT [facility] - [facility] HEMATOCRIT 36.1 35.5 - 44.0 % 09/28/2017 9:06 PM CDT [facility] - [facility] MCV 87.0 82.0 - 99.0 fL 09/28/2017 9:06 PM CDT [facility] - [facility] MCH 26.7(L) 27.2 - 32.6 pg 09/28/2017 9:06 PM CDT [facility] - [facility] MCHC 30.7(L) 31.5 - 35.5 g/dL 09/28/2017 9:06 PM CDT [facility] - [facility] RDW 15.1(H) 11.5 - 14.5 % 09/28/2017 9:06 PM CDT [facility] - [facility] RDW-STDEV 48.3 37.1 - 48.7 fL 09/28/2017 9:06 PM CDT [facility] - [facility] PLATELETS 346 140 - 350 K/uL 09/28/2017 9:06 PM CDT [facility] - [facility] MPV 9.6 9.3 - 12.4 fL 09/28/2017 9:06 PM CDT [facility] - . [facility] NEUTROPHILS 67 % 09/28/2017 9:06 PM CDT [facility] - [facility] LYMPHOCYTES 22 % 09/28/2017 9:06 PM CDT [facility] - [facility] MONOCYTES 8 % 09/28/2017 9:06 PM CDT [facility] - [facility] EOSINOPHILS 3 % 09/28/2017 9:06 PM CDT [facility] - [facility] BASOPHILS 0 % 09/28/2017 9:06 PM CDT [facility] - . [facility] IMMATURE GRANULOCYTES 0 % 09/28/2017 9:06 PM CDT [facility] - . [facility] NEUTROPHIL ABSOLUTE 7.02(H) 1.90 - 7.00 K/uL 09/28/2017 9:06 PM CDT [facility] - . [facility] LYMPHOCYTE ABSOLUTE 2.25 0.70 - 4.50 K/uL 09/28/2017 9:06 PM CDT [facility] - . [facility] MONOCYTE ABSOLUTE 0.83 0.10 - 1.30 K/uL 09/28/2017 9:06 PM CDT [facility] - [facility] EOSINOPHIL ABSOLUTE 0.28 0.00 - 0.70 K/uL 09/28/2017 9:06 PM CDT [facility] - [facility] BASOPHILS ABSOLUTE 0.03 0.00 - 0.20 K/uL 09/28/2017 9:06 PM CDT [facility] - . [facility] IMMATURE GRANULOCYTES ABSOLUTE 0.04(H) 0.00 - 0.03 K/uL 09/28/2017 9:06 PM CDT [facility] - [facility] Blood Venipuncture / Unknown 09/28/2017 8:41 PM CDT 09/28/2017 8:46 PM CDT Vitaliy Boykin MD HEMATOLOGY ORDERABLE S [facility]# [id number] [address] [address] * EKG 12-LEAD (09/28/2017 6:59 PM CDT) 09/28/2017 6:59 PM CDT Narrative INTERFACE SYSTEM - 09/28/2017 11:48 PM CDT ? Stationary ECG Study ? [facility] ? Test Date: ?09/28/2017 6:59 PM Pat Name: ? MOHSEN MARQUES ?Department: ?? 37 ?Room: ? Gender: ? F ?Hyperbaric Technician: ?? moortg : ?[id number] ? Requested By: ?? Order Number: [id number] ?Reading MD: ?? Justen Hampton ? Measurements Intervals ?Rhodes ? Rate: ? 94 ? P: ?56 MA: ? 125 ?QRS: ?1 QRSD: ? 93 ? T: ?56 QT: ? 352 ? QTc: ?441 ? Interpretive Statements ? Sinus rhythm Nonspecific T abnormality. Electronically Signed On 09-28-2017 23:48:57 CDT by Justen Hampton Procedure Note Provider, Historical - 06/30/2021 Stationary ECG Study [facility] Test Date: 09/28/2017 6:59 PM Pat Name: MOHSEN MARQUES Department: 37 Room: Gender: F Hyperbaric Technician: coleen : [id number] Requested By: Order Number: [id number] Felipe MD: Jsuten Hampton Measurements Intervals Rhodes Rate: 94 P: 56 MA: 125 QRS: 1 QRSD: 93 T: 56 [...] - Provider: Ishan Quiros RN - Comment: [phone] (Given - Provider: Ishna Quiros RN - Comment: [phone] (Given - Provider: Ishan Quiros RN - Comment: [phone]) insulin lispro (HumaLOG) variable dose injection subCUT, [...] 1137 (Contrast Given - Provider: Peggy Morris RUST - Comment: Diluted bolus. Well tolerated.) regadenoson [...] RN) documented in this encounter Care Teams Medical Assistant Cardiology Relationship Specialty Start Date End Date Justen Gale MD [address] [facility] [address] [place] [address] PCP - General Cardiovascular Disease 09/14/17 documented as of this encounter
--- OUTSIDE RECORDS SUMMARY | 2024-04-26 09:13 | XMS_ITS | Referral Summary ---
Author Organization [facility] Address [address] [place] [address] Care Team Providers Care Plywood Layup Line Core Feeder Name Role Phone Liu Jerez MD Unavailable [phone] Albert Corbin MD Unavailable [phone] Justen Gale MD Primary Care Provider Khris Arthur MD Unavailable [phone] Ko Melendez MD Unavailable John Paul Moyer MD Unavailable [phone] Annel Rod MD Unavailable Anali MARSHALL MD, Carlos M. Unavailable Encounters Date Type Department Care Team Description 04/22/2024 Telephone [facility] Oncology [address] [facility] Floor [address] [place] [address] Radha Mcgrath RN 04/19/2024 Telephone [facility] [address] [place] [address] Lalita Braun, NURIS Scheduling Appointments 02/15/2024 2:22 AM CDT - 02/15/2024 5:58 AM CDT Emergency [facility] Emergency Department [address] [place] [address] [id number] Jeremías Smith MD Myalgia (Primary Dx) Discharge [...] Taken at 2100 Active blood glucose diagnostic ([employer] Ultra Test) strip 4 (four) times a [...] 09/12/2021 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) 2021 half-way (current) use 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 inhibitors 10/17/2019 Thyroid [...] current use of insulin ([facility] 10/23/2017 Assessment & Plan (10/23/2017 2:06 AM [...] culture 08/01/2017 Hyponatremia 08/01/2017 Diet-controlled diabetes mellitus ([facility]) 07/23 LUL (obstructive sleep apnea) 08/01/2017 History of DVT (deep vein thrombosis) 08/01/2017 History of pulmonary embolism 08/01/2017 Generalized weakness 07/27/2017 Dyspnea 07/27/2017 Unintentional weight loss 07/27/2017 Acute cystitis without hematuria 07/27/2017 Nausea and vomiting 07/26/2017 Overview (07/28/2017): Added automatically from request for surgery [id number] Pulmonary embolism 08/09/2016 Assessment & Plan (10/23/2017 [...] drink = 0.6 oz pur e alcohol) [facility] [email or web address] Answer Date Recorded In the past 12 months has [employer] [place], gas, oil, or water [employer] threatened to shut off services in your [...] answer 08/15/2023 How often do you attend [facility] or [facility] services? Patient unable to answer 08/15/2023 Do [...] slept in a fci (including now)? No 08/15/2023 Personal Safety Answer Date Recorded Have you ever been in or are you currently in a harmful physical or emotional relationship or is someone making you feel afraid or unsafe? 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 Urine pH is affected by diet, medications, systemic acid-base disturbances, and renal tubular function. ??pH may affect urinary stone formation. ??For example, urine pH below 6.0 may help reduce the tendency for calcium phosphate stones and pH greater than 6.0 may reduce the tendency for uric acid stone formation. Source: [facility] marinanow Current Interpretive Data was last revised on 2017 Testing performed by: [address] [address] Protein, ur ql Negative Negative MARY JANE Comment:Testing performed by : [address] [address] Glucose, ur ql Trace(A) Negative MARY JANE Comment:Testing performed by : [address] [address] Ketones, ur Negative Negative MARY JANE Comment:Testing performed by : [address], [place]., [address] Bilirubin, ur Negative Negative MARY JANE Comment:Testing performed by : [address] [address] Blood, ur 1+(A) Negative MARY JANE PHAM Comment:Testing performed by : [address], [place]., [address] Urobilinogen, ur <2.0 <2.0 mg/dL MARY JANE PHAM Comment:Testing performed by : [address], [place]., [address] Nitrite, ur Negative Negative MARY JANE PHAM Comment:Testing performed by : [address], [place]., [address] Leukocyte esterase, ur Negative Negative MARY JANE PHAM Comment:Testing performed by : [address], [place]., [address] UA reflex comment Reflex to microscopic UA will be performed. MARY JANE PHAM Comment:Testing performed by : [address], [place]., [address] Urine, in and out catheter 02/15/2024 1:19 AM CDT 02/15/2024 1:23 AM CDT us Jeremías Smith MD LAB MICROBIOLOGY - GENERAL ORD ERABLES Final Result MARY JANE [facility] Department [place] [address] * (ABNORMAL) Urinalysis, microscopic only (02/15/2024 1:19 AM CDT) WBC, ur 0-5 0 - 5 /HPF Comment:Testing performed by : [address] [address] RBC, ur 3-5(A) 0 - 2 /HPF MARY JANE PHAM Comment:Testing performed by : [address] [address] Epithelial cells, squamous, ur 1-5 0 - 5 /HPF MARY JANE PHAM Comment:Testing performed by : [address], [place]., [address] Mucous, ur Present(A) MARY JANE PHAM Comment:Testing performed by : [address], [place]., [address] Hyaline casts, ur 1-5 0 - 10 /LPF MARY JANE PHAM Comment:Testing performed by : [facility], [address] [place] [address]., [address] Culture Reflex Comment Reflex conditions for urine culture (WBC >10) not met. MARY JANE PHAM Comment:Testing performed by : [facility], [address] [place] [address]., [address] Urine, in and out catheter 02/15/2024 1:19 AM CDT 02/15/2024 1:23 AM CDT us Jeremías Smiht MD LAB URINE ORDERABLES Final Res ult MARY JANE PHAM [address] [facility] Department [place] [address] * eGFR (02/15/2024 1:09 AM [...] last reviewed 2021. Testing performed by: [address] [address] Blood 02/15/2024 1:09 AM CDT 02/15/2024 1:15 AM CDT us Jeremías Smith MD LAB BLOOD ORDERABLES Final Res ult Performing Organization Address [facility] Co de Phone Number [address] [place] [address] * Creatine kinase (CK), total (02/15/2024 1:09 AM CDT) CK 137 30 - 200 Units/L Comment:Testing performed by : [address] [address] Blood 02/15/2024 1:09 AM CDT 02/15/2024 4:55 AM CDT Jeremías Smith MD LAB BLOOD ORDERABLES Final Res ult Performing Organization Address [facility] de Phone Number [address] [place] [address] * (ABNORMAL) Comprehensive metabolic panel (02/15/2024 1:09 AM CDT) Sodium 137 135 - 145 mmol/L Comment:Testing performed by : [address] [address] Potassium, pl 4.3 3.3 - 4.9 mmol/L MARY JANE Comment:Testing performed by : [address] [address] Chloride 100 97 - 110 mmol/L MARY JANE Comment:Testing performed by : [address] [address] CO2 29 22 - 32 mmol/L MARY JANE Comment:Testing performed by : [address] [address] Anion gap 8 2 - 15 mmol/L MARY JANE Comment:Testing performed by : [address] [place]., [address] BUN 22 6 - 25 mg/dL MARY JANE Comment:Testing performed by : [address] [address] Creatinine 0.60 0.60 - 1.10 mg/dL MARY JANE Comment:Testing performed by : [address] [address] Glucose 231(H) 70 - 199 mg/dL MARY [...] last revised 2022. Testing performed by: [address] [address] Calcium 10.3 8.5 - 10.3 mg/dL [facility] Comment:Testing performed by : [address] [address] Bilirubin, total 0.4 0.1 - 1.2 mg/dL [facility] Comment:Testing performed by : [address] [address] Protein, pl 8.2 6.5 - 8.5 g/dL [facility] Comment:Testing performed by : [address] [address] Albumin 3.9 3.5 - 5.0 g/dL [facility] Comment:Testing performed by : [address] [address] Alk phos 74 40 - 130 Units/L MARY JANE Comment:Testing performed by : [address] [address] ALT 18 7 - 45 Units/L MARY JANE Comment:Testing performed by : [address] [address] AST 16 10 - 45 Units/L MARY JANE Comment:Testing performed by : [address] [address] Blood 02/15/2024 1:09 AM CDT 02/15/2024 1:15 AM CDT us Jeremías Smiht MD LAB BLOOD ORDERABLES Final Res ult MARY JANE [address] [facility] Department [place] [address] * Influenza A/B, RSV, and COVID-19 PCR Nasopharyngeal (02/14/2024 11:43 PM CDT) COVID-19 RNA Negative Negative Comment:Testing performed by : [address] [address] Influenza A RNA Negative Negative MARY JANE Comment:Testing performed by : [address] [address] Influenza B RNA Negative Negative MARY JANE Comment:Testing performed by : [address] [address] RSV RNA Negative Negative MARY JANE Comment: Interpretive data: Testing performed by [facility]. This test is performed using the [employer] Xpert Xpress CoV-2/Flu/RSV plus assay. This is a multiplex, real-time reverse transcriptase PCR assay intended for the qualitative detection of nucleic acid from SARS-CoV-2, influenza A, influenza B, and respiratory syncytial virus. This assay has been cleared by the [place] Food and Drug administration. The performance characteristics have been verified by the [facility]. ??Results must be considered in the clinical context, and a negative result does not rule out infection. Interpretive Data last revised 2023 Testing performed by: [address] [address] Nasopharyngeal 02/14/2024 11 :43 PM CDT 02/14/2024 11:49 PM CDT Narrative MARY JANE - 02/15/2024 12:35 AM CDT Is the Patient experiencing symptoms consistent with COVID?->Yes us Jeremías Smiht MD LAB MICROBIOLOGY - GENERAL ORD ERABLES Final Result MARY JANE [address] [facility] Department [place] [address] * Differential, auto (02/14/2024 11:43 PM CDT) Neutrophil abs 6.4 1.5 - 6.5 K/cumm Comment:Testing performed by : [address] [address] Imm gran abs 0.1 0.0 - 0.1 K/cumm MARY JANE Comment:Testing performed by : [address] [address] Lymphocyte abs 2.5 0.8 - 3.3 K/cumm MARY JANE Comment:Testing performed by : [address] [address] Monocyte abs 0.7 0.2 - 0.8 K/cumm MARY JANE Comment:Testing performed by : [address] [address] Eosinophil abs 0.3 0.0 - 0.5 K/cumm MARY JANE Comment:Testing performed by : [address] [address] Basophil abs 0.0 0.0 - 0.1 K/cumm MARY JANE Comment:Testing performed by : [address] [address] Neutrophil pct 63.7 % MARY JANE Comment: Interpretive Data Percent cell count reference ranges are not reported, since discordance with absolute values may lead to misinterpretation of CBC data. Current Interpretive Data was last revised on 2017. Testing performed by: [address] [address] Imm gran pct 0.5 % MARY JANE Comment: Interpretive Data Percent cell count reference ranges are not reported, since discordance with absolute values may lead to misinterpretation of CBC data. Current Interpretive Data was last revised on 2017. Testing performed by: [address] [address] Lymphocyte pct 24.7 % [facility] Comment: Interpretive Data Percent cell count reference ranges are not reported, since discordance with absolute values may lead to misinterpretation of CBC data. Current Interpretive Data was last revised on 2017. Testing performed by: [address] [address] Monocyte pct 7.4 % [facility] Comment: Interpretive Data Percent cell count reference ranges are not reported, since discordance with absolute values may lead to misinterpretation of CBC data. Current Interpretive Data was last revised on 2017. Testing performed by: [address] [address] Eosinophil pct 3.3 % [facility] Comment: Interpretive Data Percent cell count reference ranges are not reported, since discordance with absolute values may lead to misinterpretation of CBC data. Current Interpretive Data was last revised on 2017. Testing performed by: [address] [address] Basophil pct 0.4 % [facility] Comment: Interpretive Data Percent cell count reference ranges are not reported, since discordance with absolute values may lead to misinterpretation of CBC data. Current Interpretive Data was last revised on 2017. Testing performed by: [address] [address] Blood 02/14/2024 11:4 3 PM CDT 02/14/2024 11:49 PM CDT us Jeremías Smith MD LAB BLOOD ORDERABLES Final Res ult MARY JANE [address] [facility] Department [place] [address] * (ABNORMAL) CBC with auto differential (02/14/2024 11:43 PM CDT) WBC 10.0(H) 3.8 - 9.9 K/cumm Comment:Testing performed by : [address] [address] Hgb 13.7 11.9 - 15.5 g/dL MARY JANE Comment:Testing performed by : [address], [address] Hct 42.4 35.6 - 45.5 % MARY JANE Comment:Testing performed by : [address] [address] Plt 273 150 - 400 K/cumm MARY JANE Comment:Testing performed by : [address] [address] MPV 10.3 9.1 - 12.3 fL MARY JANE Comment:Testing performed by : [address], [address] RBC 4.73 3.90 - 5.20 M/cumm MARY JANE Comment:Testing performed by : [address] [address] MCV 89.6 81.3 - 96.4 fL MARY JANE Comment:Testing performed by : [address] [address] MCH 29.0 27.1 - 33.3 pg MARY JANE Comment:Testing performed by : [address] [address] MCHC 32.3 32.3 - 35.7 g/dL MARY JANE Comment:Testing performed by : [address], [address] RDW CV 13.8 11.1 - 14.9 % MARY JANE Comment:Testing performed by : [address] [address] RDW SD 45.0 35.7 - 48.1 fL MARY JANE Comment:Testing performed by : [address] [address] NRBC abs 0.00 0.00 - 0.01 K/cumm MARY JANE Comment:Testing performed by : [address] [address] Blood 02/14/2024 11:4 3 PM CDT 02/14/2024 11:49 PM CDT us Jeremías Smith MD LAB BLOOD ORDERABLES Final Res ult Performing Organization Address [facility] Co de Phone Number MARY JANE [address] [place] [address] * aPTT (02/14/2024 11:43 PM CDT) aPTT 31 22 - 37 sec Comment: Interpretive data aPTT test has not been evaluated for monitoring heparin therapy. The anti-Xa is the preferred test. Current interpretive data was last revised on 2019. Testing performed by: [address] [address] Blood 02/14/2024 11:4 3 PM CDT 02/14/2024 11:49 PM CDT us Jeremías Smith MD LAB BLOOD ORDERABLES Final Res ult Performing Organization Address [facility] Co de Phone Number MARY JANE [address] [facility] [place] [address] * (ABNORMAL) Protime-INR (02/14/2024 11:43 PM CDT) PT 16.9(H) 12.0 - 14.6 sec Comment: Ref Range High Testing performed by: [address] [address] INR 1.4(H) 0.9 - 1.2 MARY JANE Comment: Ref Range High Interpretive data Oral anticoagulant therapeutic ranges: Venous thromboembolism prophylaxis or treatment: 2.0-3.0 CARDIOLOGY Standard range: 2.0-3.0 High-intensity range: 2.5-3.5 Refer to indication-specific guidelines for appropriate target ranges for prosthetic heart valve replacement. Current interpretive data was last revised on 2019. Testing performed by: [address] [address] Blood 02/14/2024 11:4 3 PM CDT 02/14/2024 11:49 PM CDT us Jeremías Smith MD LAB BLOOD ORDERABLES Final Res ult Performing Organization Address [facility] de Phone Number [facility] [address] [place] [address] * (ABNORMAL) Hemoglobin A1c (08/14/2023 8:47 PM CDT) [facility] Hgb A1C 8.4(H) 4.0 - 5.6 % Comment:Testing performed by : [address] [address] Estimated Average Glucose 194 mg/dL MARY JANE Comment: The ADA recommends reporting an estimated Average Glucose (eAG) with all Hemoglobin A1c results using the equation derived from a study of 507 normal and diabetic adults. ??Minority populations were underrepresented and children were not included. ?? (Diabetes Care 31:7316-2930, 2008). ??The eAG is not equivalent to a fasting glucose. Testing performed by: [address] [address] Blood 08/14/2023 8:47 PM CDT 08/14/2023 8:52 PM CDT Philippe Mcguire MD LAB BLOOD ORDERABLES Final Result Performing Organization Address [facility] de Phone Number [place] [id number] [facility] [place] [address] * Lipid panel (08/14/2023 8:47 PM CDT) [facility] Cholesterol 176 30 - 199 mg/dL [...] revised on 2017. Testing performed by: [address] [address] Triglycerides 121 <=149 mg/dL MARY JANE Comment: [...] revised on 2017. Testing performed by: [address] [address] HDL 44 >=40 mg/dL MARY JANE Comment: [...] last revised on 2017. Testing performed by: [facility], [address] [place] [address]., [address] LDL, calculated 108 <=129 mg/dL MARY JANE [...] revised on 2017. Testing performed by: [address] [address] Non-HDL Cholesterol 132 mg/dL MARY JANE Comment: [...] revised on 2017. Testing performed by: [address] [address] Chol/HDL ratio 4 MARY JANE Comment:Testing performed by : [address] [address] Blood 08/14/2023 8:47 PM CDT 08/14/2023 8:52 PM CDT us Philippe Mcguire MD LAB BLOOD ORDERABLES Final Result MARY JANE [address] [facility] Department [place] [address] * Dexa Axial Skeleton Bone Density 1 or 2 Site (08/02/2022 10:53 AM CDT) Anatomical Region Laterality Modality Body N/A Radiographic Lizeth ging Narrative 08/02/2022 3:34 PM CDT Patient Name: Karly Marques Date of : 1955 Date of scan: 08/02/2022 Bone mineral density was performed on a [employer] Discovery Densitometer. ?? Based on machine cross-calibration [...] by the International Society of Clinical Densitometry. [id number] Khris Arthur MD IM DXA PROCEDURES F [...] agrees with it. ACC# ??Date Time ??Exam [id number] Aug 19, 2016 14:27:00 [facility] [address] Diag Mamm, inc CAD, unilat L ?? Technologist(s): Carla Harris; ; [id number] Aug 19, 2016 15:39:00 [facility] [address] Breast US unilateral, ltd L ACC# ??Date Time ??Exam [id number] Aug 19, 2016 14:27:00 [facility] [address] Diag Mamm, inc CAD, unilat L ?? Technologist(s): Carla Harris; ; [id number] Aug 19, 2016 15:39:00 [facility] [address] Breast US unilateral, ltd L EXAMINATION: ?? [...] SARABIA M.D. on Aug 19 2016 ??4:20P [id number] Procedure Note Miscellaneous, Not In File / Provider, MD Tyler - 09/17/2016 ANTHONY SARABIA M.D. JUDY RINCON M.D. FINAL REPORT The radiology attending physician has personally reviewed this study, and has reviewed and/or edited this written report and agrees with it. [facility]# Date Time Exam [id number] Aug 19, 2016 14:27:00 [facility] [address] Diag Mamm, inc CAD, unilat L Technologist(s): Carla Harris; ; [id number] Aug 19, 2016 15:39:00 [facility] [address] Breast US unilateral, ltd L ACC# Date Time Exam [id number] Aug 19, 2016 14:27:00 C 65135 Diag Mamm, inc CAD, unilat L Technologist(s): Carla Harris; ; [id number] Aug 19, 2016 15:39:00 C 60109 Breast US unilateral, ltd L EXAMINATION: LEFT [...] SARABIA M.D. on Aug 19 2016 4:20P [id number] us Not In File Miscellaneous IMG MAMMO PROCEDURES F inal Result from Last 3 Months or Most Recently Relevant to Health Maintenance Insurance [facility] MEDICARE SOLUTIONS MEDICARE SOLUTIONS [employer] MEDICARE SOLUTIONS Advance Directives For more information, please contact: [phone] Documents on File Type Date Recorded Patient Physician Expl anation ADVANCE DIRECTIVE 12/23/2021 2:49 PM Power of Auto Body Mechanic Apprentice-Medical ADVANCE DIRECTIVE 12/23/2021 2:49 PM Living Will [...] First Alternate Health Care Agent Care Teams [employer] Layup Line Core Feeder Relationship Specialty Start Date End Date Justen Gale MD [facility] [address] [place] [address] PCP - General 10/09/17 Liu Jerez MD Consulting Physician Gastroenterology 07/28/17 [place] [address] [facility] [address] [place] [address] Consulting Physician Pulmonary Disease 08/03/17 Khris Arthur MD [address] [facility] [address] [place] [address] Medical Oncologist/Germination Worker Medical Oncology 10/23/17 [place] [address] [facility] [address] [place] [address] Surgeon Orthopedic Surgery 10/23/17 [place] [address] [facility] [address] [place] [address] Consulting Physician Pain Management 10/23/17 [place] [address] [facility] [address] [place] [address] Referring Physician General Surgery 01/26/18 [place] [address] [facility] [address] [place] [address] Consulting Physician Neurology 01/26/18
--- OUTSIDE RECORDS SUMMARY | 2024-04-26 09:13 | XMS_ITS | Encounter Summary ---
Author Organization [facility] Healthcare Address [address] [place] [address] Care Team Providers Care Target Worker Name Role Phone Liu Jerez MD Unavailable Albert Corbin MD Unavailable Justen Gale MD Primary Care Provider Khris Arthur MD Unavailable [phone] Ko Melendez MD Unavailable John Paul Moyer MD Unavailable [phone] Annel Rod MD Unavailable Anali MARSHALL MD, Carlos M. Unavailable [phone] Encounter Details Date Type Department Care Team (Late st Contact Info) Description 11/21/2023 3:00 PM CDT Lab [facility] [address] [facility] Medicine 7th [place] [id number] Malignant neoplasm of upper-inner quadrant of left breast in female, estrogen receptor positive (HCC) Social History Tobacco Use Types Packs/Day Years Used Date Smoking Tobacco: Former Smokeless Tobacco: Never Comments:remote tobacco use Alcohol Use Standard Drinks/Week Comments No 0 (1 standard drink = 0.6 oz pur e alcohol) [facility] Utilities Answer Date Recorded In the past [...] answer 08/15/2023 How [facility] or [facility] services? 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 Testing performed by: [facility], [address] [place] [phone] Blood 11/21/2023 2:34 PM CDT 11/21/2023 2:39 PM CDT Khris Arthur MD LAB BLOOD ORDERABLES Final Result [facility] Department of Laboratories [place], [place] [id number] * (ABNORMAL) Basic metabolic panel (11/21/2023 2:34 PM CDT) Sodium 138 135 - 145 mmol/L Comment:Testing performed by : [facility], [address] [place] [phone] Potassium, pl 4.1 3.3 - 4.9 mmol/L MARY JANE ANGELES Comment:Testing performed by : [facility], [address] [place] [phone] Chloride 103 97 - 110 mmol/L MARY JANE ANGELES Comment:Testing performed by : [facility], [address] [place] [phone] CO2 29 22 - 32 mmol/L [facility] Comment:Testing performed by : [facility], [address] [place] [phone] Anion gap 6 2 - 15 mmol/L [facility] Comment:Testing performed by : [facility], [address] [place] [phone] BUN 15 6 - 25 mg/dL [facility] Comment:Testing performed by : [facility], [address] [place] [phone] Creatinine 0.63 0.60 - 1.10 mg/dL [facility] Comment:Testing performed by : [facility], [address] [place] [phone] Glucose 202(H) 70 - 199 mg/dL MARY [...] was last revised 2022. Testing performed by: [facility], [address] [place] [phone] Calcium 9.6 8.5 - 10.3 mg/dL [facility] Comment:Testing performed by : [facility], [address] [place] [phone] Blood 11/21/2023 2:34 PM CDT 11/21/2023 2:39 PM CDT Khris Arthur MD LAB BLOOD ORDERABLES Final Result [facility] [place] [address] documented in this encounter Visit Diagnoses Diagnosis Malignant neoplasm of upper-inner quadrant of left breast in female, estrogen receptor positive (HCC) documented in this encounter Care Teams Target Worker Relationship Specialty Start Date End Date Justen Gale MD 2 [facility] [address] [place] [address] PCP - General 10/09/17 Liu Jerez MD Consulting Physician Gastroenterology 07/28/[address] [place] [address] [facility] [address] [place] [address] Consulting Physician Pulmonary Disease 08/03/17 Khris Arthur MD [address] [facility] [address] [place] [address] Medical Oncologist/Commercial Loan Officer Medical Oncology 10/23/[address] [place] [address] [facility] [address] [place] [address] Surgeon Orthopedic Surgery 10/23/17 [place] [address] [facility] [address] [place] [address] Consulting Physician Pain Management 10/23/[address] [place] [address] [facility] [address] [place] [address] Referring Physician General Surgery 01/26/18 [place] [address] [facility] [address] [place] [address] Consulting Physician Neurology 01/26/18 documented as of this encounter
--- OUTSIDE RECORDS SUMMARY | 2024-04-26 09:13 | XMS_ITS | Encounter Summary ---
Author Organization [facility] Healthcare Address [address] [place] [address] Care Team Providers Care Brand Engineer Name Role Phone Liu Jerez MD Unavailable Albert Corbin MD Unavailable Justen Gale MD Primary Care Provider Khris Arthur MD Unavailable [phone] Ko Melendez MD Unavailable [phone] John Paul Moyer MD Unavailable Annel Rod MD Unavailable Anali MARSHALL MD, Carlos M. Unavailable Reason for Visit * Reason Comments Abdominal Pain Encounter Details Date Type Department Care Team (Late st Contact Info) Description 10/31/2023 4:02 PM CDT - 10/31/2023 7:35 PM CDT Emergency [facility] Emergency Department [facility] [place] [address] Melvin Sy MD [facility] [place] [address] [place] [address] Abdominal pain (Primary Dx); Nausea and vomiting, unspecified vomiting type Discharge Disposition: Discharge to home or self care Social History Tobacco Use Types Packs/Day Years Used Date Smoking Tobacco: Former Smokeless Tobacco: Never Comments:remote tobacco use Alcohol Use Standard Drinks/Week Comments No 0 (1 standard drink = 0.6 oz pur e alcohol) [facility] Utilities Answer Date Recorded In the past 12 months has [employer], gas, oil, or water Time Warden threatened to shut off services in your [...] 08/15/2023 How often do you attend [facility] or jewish services? 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 In an effort to expedite patient care, this report has not been adjusted for typographical, grammatical, and syntax by a trained senior medical technologist. Clinical Impression: Abdominal pain Nausea and vomiting, [...] PM T: ??10/31/2023 5:45 PM Report ID: [id number] Reading Location: ??[id number] Procedure Note Patrick Zhou MD - 10/31/2023 [...] Patrick Zhou M.D. KH: KATH Report ID: [id number] Reading Location: [place] [address] us Melvin Sy MD IMG CT PROCEDURES [...] PM T: ??10/31/2023 4:33 PM Report ID: [id number] Reading Location: ??[id number] Procedure Note Olinda Wells MD - 10/31/2023 [...] Olinda Bernal M.D. FT: FT Report ID: [id number] Reading Location: [id number] us Melvin Sy MD IMG XR PROCEDURES Deann l Result * ECG 12 lead (10/31/2023 4:17 PM CDT) Pathologist [facility] Ventricular Rate EKG/Min 79 BPM [facility] Atrial Rate 79 BPM [facility] TN-Interval (MSEC) 144 ms [facility] QRS-Interval (MSEC) 88 ms [facility] QT-Interval (MSEC) 380 ms [facility] QTc 435 ms [facility] P Mercedes 43 degrees [facility] R Mercedes -4 degrees [facility] T Mercedes 37 degrees [facility] Diagnosis Normal sinus rhythm Possible Left atrial enlargement Borderline ECG When compared with ECG of 02-SEP-2023 23:58, No significant change was found Confirmed by WILLIAMS HAMMOND M.D. ([id number]) on 10/31/2023 8:34:15 PM [facility] 10/31/2023 4:17 PM CDT 10/31/2023 8:34 PM CDT us Melvin Sy MD ECG ORDERABLES Final Result Performing Organization Address [facility] de Phone Number [facility] * (ABNORMAL) Urinalysis, microscopic only (10/31/2023 4:01 PM CDT) WBC, ur 6-10(A) 0 - 5 /HPF Comment:Testing performed by : [address] [address] RBC, ur 0-2 0 - 2 /HPF MARY JANE Comment:Testing performed by : [address] [address] Epithelial cells, squamous, ur 1-5 0 - 5 /HPF MARY JANE Comment:Testing performed by : [address] [address] Bacteria, ur 1+(A) MARY JANE Comment:Testing performed by : [address] [address] Mucous, ur Present(A) MARY JANE Comment:Testing performed by : [address] [address] Culture Reflex Comment Reflex conditions for urine culture (WBC >10) not met. MARY JANE Comment:Testing performed by : [address] [address] Urine 10/31/2023 4:01 PM CDT 10/31/2023 4:05 PM CDT us Marin MCKEON LAB URINE ORDERABLES Deann l Result Performing Organization Address City/[facility]/ZIP Co de Phone Number [facility] [address] [facility] Department [place] [address] * (ABNORMAL) Urinalysis reflex to microscopic and culture Urine (10/31/2023 4:01 PM CDT) Color, ur Yellow Yellow Comment:Testing performed by : [address] [address] Clarity, ur Clear Clear MARY JANE Comment:Testing performed by : [address] [address] Specific gravity, ur 1.020 1.003 - 1.030 MARY JANE Comment:Testing performed by : [address] [address] pH, urine 5.5 MARY JANE Comment: Interpretive Data ? Urine pH is affected by diet, medications, systemic acid-base disturbances, and renal tubular function. ??pH may affect urinary stone formation. ??For example, urine pH below 6.0 may help reduce the tendency for calcium phosphate stones and pH greater than 6.0 may reduce the tendency for uric acid stone formation. Source: [facility] [employer] [place] Current Interpretive Data was last revised on 2017 Testing performed by: [address] [address] Protein, ur ql Negative Negative MARY JANE Comment:Testing performed by : [address] [address] Glucose, ur ql 1+(A) Negative MARY JANE Comment:Testing performed by : [address] [address] Ketones, ur Negative Negative MARY JANE Comment:Testing performed by : [address] [address] Bilirubin, ur Negative Negative MARY JANE Comment:Testing performed by : [address] [address] Blood, ur 1+(A) Negative MARY JANE Comment:Testing performed by : [address] [address] Urobilinogen, ur <2.0 <2.0 mg/dL MARY JANE Comment:Testing performed by : [address] [address] Nitrite, ur Negative Negative MARY JANE Comment:Testing performed by : [address] [address] Leukocyte esterase, ur Negative Negative MARY JANE Comment:Testing performed by : [address] [address] UA reflex comment Reflex to microscopic UA will be performed. MARY JANE Comment:Testing performed by : [address] [place]., [address] Urine 10/31/2023 4:01 PM CDT 10/31/2023 4:05 PM CDT us Melvin Sy MD LAB MICROBIOLOGY - GEN ERAL ORDERABLES Final Result MARY JANE [address] [facility] Department [place] [address] * eGFR (10/31/2023 3:57 PM [...] was last reviewed 2021. Testing performed by: [facility], [address] [place] [address]., [address] Blood 10/31/2023 3:57 PM CDT 10/31/2023 4:05 PM CDT us Marin MCKEON LAB BLOOD ORDERABLES Deann bowman Result MARY JANE [address] [facility] Department [place] [address] * Differential, auto (10/31/2023 3:57 PM CDT) Neutrophil abs 6.4 1.5 - 6.5 K/cumm Comment:Testing performed by : [address] [address] Imm gran abs 0.1 0.0 - 0.1 K/cumm MARY JANE Comment:Testing performed by : [address] [address] Lymphocyte abs 2.6 0.8 - 3.3 K/cumm MARY JANE Comment:Testing performed by : [address] [address] Monocyte abs 0.7 0.2 - 0.8 K/cumm MARY JANE Comment:Testing performed by : [address] [address] Eosinophil abs 0.1 0.0 - 0.5 K/cumm MARY JANE Comment:Testing performed by : [address] [address] Basophil abs 0.0 0.0 - 0.1 K/cumm MARY JANE Comment:Testing performed by : [address] [address] Neutrophil pct 64.4 % MARY JANE Comment: Interpretive Data Percent cell count reference ranges are not reported, since discordance with absolute values may lead to misinterpretation of CBC data. Current Interpretive Data was last revised on 2017. Testing performed by: [address] [address] Imm gran pct 0.5 % MARY JANE Comment: Interpretive Data Percent cell count reference ranges are not reported, since discordance with absolute values may lead to misinterpretation of CBC data. Current Interpretive Data was last revised on 2017. Testing performed by: [address] [address] Lymphocyte pct 26.2 % [facility] Comment: Interpretive Data Percent cell count reference ranges are not reported, since discordance with absolute values may lead to misinterpretation of CBC data. Current Interpretive Data was last revised on 2017. Testing performed by: [address] [address] Monocyte pct 7.2 % [facility] Comment: Interpretive Data Percent cell count reference ranges are not reported, since discordance with absolute values may lead to misinterpretation of CBC data. Current Interpretive Data was last revised on 2017. Testing performed by: [address] [address] Eosinophil pct 1.3 % [facility] Comment: Interpretive Data Percent cell count reference ranges are not reported, since discordance with absolute values may lead to misinterpretation of CBC data. Current Interpretive Data was last revised on 2017. Testing performed by: [address] [address] Basophil pct 0.4 % [facility] Comment: Interpretive Data Percent cell count reference ranges are not reported, since discordance with absolute values may lead to misinterpretation of CBC data. Current Interpretive Data was last revised on 2017. Testing performed by: [address] [address] Blood 10/31/2023 3:57 PM CDT 10/31/2023 4:05 PM CDT Marin MCKEON LAB BLOOD ORDERABLES Deann l Result MARY JANE [address] [facility] Department [place] [address] * Lipase (10/31/2023 3:57 PM CDT) Lipase 18 10 - 99 Units/L Comment:Testing performed by : [address] [address] Blood (Blood, Venous) 10/31/2023 3:57 PM CDT 10/31/2023 4:05 PM CDT us Melvin Sy MD LAB BLOOD ORDERABLES F inal Result [facility] [address] [facility] Department [place] [address] * (ABNORMAL) Comprehensive metabolic panel (10/31/2023 3:57 PM CDT) Sodium 139 135 - 145 mmol/L Comment:Testing performed by : [address] [address] Potassium, pl 4.3 3.3 - 4.9 mmol/L MARY JANE Comment:Testing performed by : [address] [address] Chloride 104 97 - 110 mmol/L MARY JANE Comment:Testing performed by : [address] [address] CO2 24 22 - 32 mmol/L MARY JANE Comment:Testing performed by : [address] [address] Anion gap 11 2 - 15 mmol/L MARY JANE Comment:Testing performed by : [address] [address] BUN 14 6 - 25 mg/dL MARY JANE Comment:Testing performed by : [address] [address] Creatinine 0.60 0.60 - 1.10 mg/dL MARY JANE Comment:Testing performed by : [address] [address] Glucose 201(H) 70 - 199 mg/dL MARY [...] was last revised 2022. Testing performed by: [address] [address] Calcium 9.7 8.5 - 10.3 mg/dL MARY JANE Comment:Testing performed by : [address] [address] Bilirubin, total 0.5 0.1 - 1.2 mg/dL MARY JANE Comment:Testing performed by : [address] [address] Protein, pl 8.2 6.5 - 8.5 g/dL MARY JANE Comment:Testing performed by : [address], [address] Albumin 3.9 3.5 - 5.0 g/dL MARY JANE Comment:Testing performed by : [address], [address] Alk phos 89 40 - 130 Units/L MARY JANE Comment:Testing performed by : [address] [address] ALT 16 7 - 45 Units/L MARY JANE Comment:Testing performed by : [address] [address] AST 19 10 - 45 Units/L MARY JANE Comment:Testing performed by : [address] [address] Blood 10/31/2023 3:57 PM CDT 10/31/2023 4:05 PM CDT us Melvin Sy MD LAB BLOOD ORDERABLES F inal Result [facility] [address] [facility] Department of Laboratories [place], [place] [id number] * (ABNORMAL) CBC with auto differential (10/31/2023 3:57 PM CDT) [facility] WBC 10.0(H) 3.8 - 9.9 K/cumm Comment:Testing performed by : [address], [address] Hgb 13.2 11.9 - 15.5 g/dL MARY JANE Comment:Testing performed by : [address] [address] Hct 41.1 35.6 - 45.5 % MARY JANE Comment:Testing performed by : [address] [address] Plt 268 150 - 400 K/cumm MARY JANE Comment:Testing performed by : [address] [address] MPV 9.7 9.1 - 12.3 fL MARY JANE Comment:Testing performed by : [address], [address] RBC 4.59 3.90 - 5.20 M/cumm MARY JANE Comment:Testing performed by : [address] [address] MCV 89.5 81.3 - 96.4 fL MARY JANE Comment:Testing performed by : [address] [address] MCH 28.8 27.1 - 33.3 pg MARY JANE Comment:Testing performed by : [address], [address] MCHC 32.1(L) 32.3 - 35.7 g/dL MARY JANE Comment:Testing performed by : [address] [address] RDW CV 13.8 11.1 - 14.9 % MARY JANE Comment:Testing performed by : [address], [address] RDW SD 45.1 35.7 - 48.1 fL MARY JANE Comment:Testing performed by : [address] [address] NRBC abs 0.00 0.00 - 0.01 K/cumm MARY JANE Comment:Testing performed by : [address] [address] Blood (Blood, Venous) 10/31/2023 3:57 PM CDT 10/31/2023 4:05 PM CDT us Melvin Sy MD LAB BLOOD ORDERABLES F inal Result [facility] [address] [facility] Department [place] [address] documented in this encounter Visit Diagnoses Diagnosis [...] 10/31/2023 documented in this encounter Care Teams Brand Engineer Relationship Specialty Start Date End Date Justen Gale MD 2 [facility] [address] [place] [address] PCP - General 10/09/17 Liu Jerez MD Consulting Physician Gastroenterology 07/28/17 [place] [address] [address] [place] [address] Consulting Physician Pulmonary Disease 08/03/17 Khris Arthur MD [address] [facility] [address] [place] [address] Medical Oncologist/Plant Anatomy Teacher Medical Oncology 10/23/17 [place] [address] [address] [place] [address] Surgeon Orthopedic Surgery 10/23/17 [place] [address] [address] [place] [address] Consulting Physician Pain Management 10/23/17 [place] [address] [facility] [address] [place] [address] Referring Physician General Surgery 01/26/18 [place] [address] [facility] [address] [place] [address] Consulting Physician Neurology 01/26/18 documented as of this encounter
--- OUTSIDE RECORDS SUMMARY | 2024-04-26 09:13 | XMS_ITS | Encounter Summary ---
Author Organization [facility] Address [address] [place] [address] Phone Care Team Providers Care Hazmat Technician Name Role Phone Liu Jerez MD Unavailable Albert Corbin MD Unavailable Justen Gale MD Primary Care Provider Khris Arthur MD Unavailable [phone] Ko Melendez MD Unavailable John Paul Moyer MD Unavailable Annel Rod MD Unavailable Anali MARSHALL MD, Carlos M. Unavailable Encounter Details Date Type Department Care Team (Late st Contact Info) Description 11/21/2023 2:00 PM CDT Lab [facility] Oncology [address] [facility] 7th [place] [address] [place] [address] Social History Tobacco Use Types Packs/Day Years Used Date Smoking Tobacco: Former Smokeless Tobacco: Never Comments:remote tobacco use Alcohol Use Standard Drinks/Week Comments No 0 (1 standard drink = 0.6 oz pur e alcohol) [facility] Utilities Answer Date Recorded In the [...] How often do you attend chur or oriental orthodox services? 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 Gender Identity Not on file Sexual Orientation Not on file documented as of this encounter Plan of Treatment Not on file documented as of this encounter Visit Diagnoses Not on filedocumented in this encounter Care Teams Hazmat Technician Relationship Specialty Start Date End Date Justen Gale MD 2 [facility] [address] [place] [address] PCP - General 10/09/17 Liu Jerez MD Consulting Physician Gastroenterology 07/28/17 [place] [address] [facility] [address] [place] [address] Consulting Physician Pulmonary Disease 08/03/17 Khris Arthur MD [address] [place] [address] [address] [place], [place] [id number] Medical Oncologist/Negative Turner Medical Oncology 10/23/17 [place] [address] [facility] [address] [place] [address] Surgeon Orthopedic Surgery 10/23/17 [place] [address] [facility] [address] [place] [address] Consulting Physician Pain Management 10/23/17 [place] [address] [facility] [address] [place] [address] Referring Physician General Surgery 01/26/18 [place] [address] [facility] [address] [place] [address] Consulting Physician Neurology 01/26/18 documented as of this encounter
--- OUTSIDE RECORDS SUMMARY | 2024-04-26 09:13 | XMS_ITS | Encounter Summary ---
Author Organization [facility] Healthcare Address [address] [place] [address] Care Team Providers Care Facing Baster Jumpbasting Name Role Phone Liu Jerez MD Unavailable Albert Corbin MD Unavailable Justen Gale MD Primary Care Provider Khris Arthur MD Unavailable [phone] Ko Melendez MD Unavailable John Paul Moyer MD Unavailable Annel Rod MD Unavailable Anali MARSHALL MD, Carlos M. Unavailable [phone] Encounter Details Date Type Department Care Team (Late st Contact Info) Description 01/05/2024 [facility] Emergency Department [address] [place] [address] [address] Treadwell, NURIS Social History Tobacco Use Types Packs/Day Years Used Date Smoking Tobacco: Former Smokeless Tobacco: Never Comments:remote tobacco use Alcohol Use Standard Drinks/Week Comments No 0 (1 standard drink = 0.6 oz pur e alcohol) [facility] Utilities Answer Date Recorded In [...] often do you attend chur ch or holiness services? 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 Gender Identity Not on file Sexual [...] on filedocumented in this encounter Care Teams Facing Baster Jumpbasting Relationship Specialty Start Date End Date Justen Gale MD [address] [place] [address] PCP - General 10/09/17 Liu Jerez MD Consulting Physician Gastroenterology 07/28/17 [place] [address] [facility] [address] [place] [address] Consulting Physician Pulmonary Disease 08/03/17 Khris Arthur MD [address] [facility] [address] [place] [address] Medical Oncologist/Adjunct Latin Professor Medical Oncology 10/23/17 [place] [address] [facility] [address] [place] [address] Surgeon Orthopedic Surgery 10/23/17 [place] [address] [facility] [address] [place] [address] Consulting Physician Pain Management 10/23/17 [place] [address] [facility] [address] [place] [address] Referring Physician General Surgery 01/26/18 [place] [address] [facility] [address] [place] [address] Consulting Physician Neurology 01/26/18 documented as of this encounter
--- OUTSIDE RECORDS SUMMARY | 2024-04-26 09:13 | XMS_ITS | Encounter Summary ---
Author Organization [facility] Address [address] [place] [address] Care Team Providers Care Prospect Manager Name Role Phone Unavailable Primary Care Provider Unavailabl e Reason for Visit * Reason Onset Date Comments Wants Appointment 07/07/2017 Encounter Details Date Type Department Care Team (Late st Contact Info) Description 07/07/[address] [facility] Neurology [place] [address] [facility] [address] [place] [address] Odalys Loyola MD [address] [place] [address] Wants Appointment Social History Tobacco Use Types Packs/Day Years Used Date Smoking Tobacco: Never Assessed Sex and Gender Information Value Date Recorded Sex Assigned at Not on file Gender Identity Not on file Sexual Orientation Not on file documented as of this encounter Miscellaneous Notes * Telephone Encounter - Rosalba Brownlee - 07/07/2017 9:08 AM CDT Received referral from [facility] to schedule a RECRUITING ASSISTANT appointment with Dr. Loyola for neuropathy. Called and left message for patient to call back to schedule. Referral scanned in. documented in this encounter Plan of Treatment Not on file documented as of this encounter Visit Diagnoses Not on filedocumented in this encounter
--- OUTSIDE RECORDS SUMMARY | 2024-04-26 09:13 | XMS_ITS | Encounter Summary ---
Author Organization [facility] Address [address] [place] [address] Phone Care Team Providers Care Tellers Supervisor Name Role Phone Liu Jerez MD Unavailable Albert Corbin MD Unavailable Justen Gale MD Primary Care Provider Khris Arthur MD Unavailable [phone] Ko Melendez MD Unavailable John Paul Moyer MD Unavailable Annel Rod MD Unavailable Anali MARSHALL MD, Carlos M. Unavailable Encounter Details Date Type Department Care Team (Late st Contact Info) Description 12/27/2023 Orders Only [facility] Oncology [address] [place] [address] Radha Mcgrath RN Chronic anticoagulation; History of [...] drink = 0.6 oz pur e alcohol) [facility] Utilities Answer Date Recorded In the past 12 months has [employer], gas, oil, or water company threatened [...] How often do you attend chur or yarsani services? 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 Gender Identity Not on file Sexual [...] documented as of this encounter Care Teams Tellers Supervisor Relationship Specialty Start Date End Date Justen Gale MD [address] [address] PCP - General 10/09/17 Liu Jerez MD Consulting Physician Gastroenterology 07/28/17 [place] [address] [id number] [place] [address] Consulting Physician Pulmonary Disease 08/03/17 [place] [address] [place] [address] [address] [place] [address] Medical Oncologist/Table Inspector Medical Oncology 10/23/17 [place] [address] [facility] [address] [place] [address] Surgeon Orthopedic Surgery 10/23/17 [place] [address] [address] Consulting Physician Pain Management 10/23/17 [place] [address] [address] Referring Physician General Surgery 01/26/18 [place] [address] [facility] [address] [place] [address] Consulting Physician Neurology 01/26/18 documented as of this encounter
--- OUTSIDE RECORDS SUMMARY | 2024-04-26 09:14 | XMS_ITS | Encounter Summary ---
Author Organization [facility] Address [address] [place] [address] Phone Care Team Providers Care Assignment Desk Assistant Name Role Phone Liu Jerez MD Unavailable [phone] Albert Corbin MD Unavailable Justen Gale MD Primary Care Provider [phone] Khris Arthur MD Unavailable [phone] Ko Melendez MD Unavailable [phone] John Paul Moyer MD Unavailable Annel Rod MD Unavailable Anali MARSHALL MD, Carlos M. Unavailable Encounter Details Date Type Department Care Team (Late st Contact Info) Description 09/13/2023 Orders Only [facility] Oncology [address] [place] [address] Radha Mcgrath RN Malignant neoplasm of upper-inner quadrant of left breast in female, estrogen receptor positive (HCC) (Primary Dx) Social History Tobacco Use Types Packs/Day Years Used Date Smoking Tobacco: Former Smokeless Tobacco: Never Comments:remote tobacco use Alcohol Use Standard Drinks/Week Comments No 0 (1 standard drink = 0.6 oz pur e alcohol) 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 Gender Identity Not on file Sexual [...] 09/13/2023 documented in this encounter Care Teams Assignment Desk Assistant Relationship Specialty Start Date End Date Justen Gale MD 2 [facility] [address] [place] [address] PCP - General 10/09/17 Liu Jerez MD Consulting Physician Gastroenterology 07/28/17 [place] [address] [facility] [address] [place] [address] Consulting Physician Pulmonary Disease 08/03/17 Khris Arthur MD [address] [facility] [address] [place] [address] Medical Oncologist/Edger Saw Operator Medical Oncology 10/23/17 [place] [address] [facility] [address] [place] [address] Surgeon Orthopedic Surgery 10/23/17 [place] [address] [facility] [facility] [address] [place] [address] Consulting Physician Pain Management 10/23/17 [place] [address] [facility] [address] [place] [address] Referring Physician General Surgery 01/26/18 [place] [address] [facility] [address] [place] [address] Consulting Physician Neurology 01/26/18 documented as of this encounter
--- OUTSIDE RECORDS SUMMARY | 2024-04-26 09:14 | XMS_ITS | Encounter Summary ---
Author Organization [facility] Address [address] [place] [address] Care Team Providers Care Sales Porter Name Role Phone Liu Jerez MD Unavailable Albert Corbin MD Unavailable [phone] Justen Gale MD Primary Care Provider Khris Arthur MD Unavailable [phone] Ko Melendez MD Unavailable John Paul Moyer MD Unavailable Annel Rod MD Unavailable Anali MARSHALL MD, Carlos M. Unavailable Reason for Visit * Reason Comments Abdominal Pain Weakness - Generalized Encounter Details Date Type Department Care Team (Late st Contact Info) Description 08/24/2023 5:23 PM CDT - 08/24/2023 9:12 PM CDT Emergency [facility] Emergency Department [address] [place] [address] Kirit Everett DO [address] [place] [id number] Abdominal pain, generalized (Primary Dx); Irritable bowel syndrome, unspecified type Discharge Disposition: Discharge to home or self care Social History Tobacco Use Types Packs/Day Years Used Date Smoking Tobacco: Former Smokeless Tobacco: Never Comments:remote tobacco use Alcohol Use Standard Drinks/Week Comments No 0 (1 standard drink = 0.6 oz pur e alcohol) [place] Utilities Answer Date Recorded In the past 12 months has e [employer], gas, oil, or water [employer] threatened to shut off services in your [...] How often do you attend [facility] or adventist services? 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 * Irritable Bowel Syndrome (General Information) (Irish) documented in this encounter Medications at Time of Discharge albuterol HFA (PROVENTIL HFA,VENTOLIN HFA,PROAIR HFA) 90 mcg/actuation inhaler Inhale 2 puffs every 6 (six) hours as needed for wheezing or shortness of breath 04/19/2021 BD Ultra-Fine Short Pen Needle 31 gauge x 5/16 needle USE 6 TIMES DAILY DIRECTED 06/24/2021 blood glucose diagnostic (Silver Pushuch Ultra Test) strip 4 (four) times a [...] ED Notes * Kirit Everett DO - 08/24/2023 6:51 PM CDT HPI [...] Hypertension Hypertension Osteoarthritis osteoarthritis PE (pulmonary thromboembolism) ([facility] ([facility]) Sleep apnea Past Surgical History: Procedure [...] Use: Not At Risk (06/16/2023) Received from [facility] AUDIT-C Frequency of Alcohol Consumption: Never [...] Giovanni Tavares M.D. AG: BAKARI Report ID: [id number] Reading Location: [id number] BP 140/89 Pulse 77 Temp 37.2 ??C (99 ??F) (Oral) Resp 18 Ht 154.9 cm (5' 1 ) Wt 123.3 kg (271 lb 13.2 oz) SpO2 98% BMI 51.36 kg/m?? [facility] ED Course as of 08/25/23 0518 Time: [...] mg/dL Comment:Testing performed by : [facility], [address] [place] [address]., [address] Glucose comment 1 Use This Result BCPUJA ANKIT Comment:Testing performed by : [facility], [address] [place] [address]., [address] Blood 08/24/2023 7:24 PM CDT 08/24/2023 7:24 PM CDT us Kirit Everett DO LAB POCT ORDERABLES - DEVICE F inal Result BCPUJA ANKIT [address] [facility] Department [place] [address] * CT Abdomen Pelvis W [...] PM T: ??08/24/2023 7:25 PM Report ID: [id number] Reading Location: ??[id number] Procedure Note Giovanni Tavares MD - 08/24/2023 [...] Giovanni Tavares M.D. AG: BAKARI Report ID: [id number] Reading Location: [place] [address] Kirit Everett DO IMG CT PROCEDURES Final [...] was last reviewed 2021. Testing performed by: [address] [address] Blood 08/24/2023 2:26 PM CDT 08/24/2023 2:43 PM CDT upad LAB BLOOD ORDERABLES Final Res ult Performing Organization Address [facility] Co de Phone Number MARY JANE [address] [place] [address] * (ABNORMAL) Urinalysis, microscopic only (08/24/2023 2:26 PM CDT) WBC, ur 0-5 0 - 5 /HPF Comment:Testing performed by : [address] [address] RBC, ur 0-2 0 - 2 /HPF MARY JANE Comment:Testing performed by : [address] [address] Mucous, ur Present(A) MARY JANE Comment:Testing performed by : [address] [address] Culture Reflex Comment Reflex conditions for urine culture (WBC >10) not met. MARY JANE Comment:Testing performed by : [address] [address] Urine 08/24/2023 2:26 PM CDT 08/24/2023 2:43 PM CDT upad LAB URINE ORDERABLES Final Res ult Performing Organization Address [facility] de Phone Number [facility] [address] [facility] [place] [address] * Differential, auto (08/24/2023 2:26 PM CDT) Neutrophil abs 5.1 1.5 - 6.5 K/cumm Comment:Testing performed by : [address] [address] Imm gran abs 0.0 0.0 - 0.1 K/cumm MARY JANE Comment:Testing performed by : [address] [address] Lymphocyte abs 3.1 0.8 - 3.3 K/cumm MARY JANE Comment:Testing performed by : [address] [address] Monocyte abs 0.8 0.2 - 0.8 K/cumm MARY JANE Comment:Testing performed by : [address] [address] Eosinophil abs 0.2 0.0 - 0.5 K/cumm [facility] Comment:Testing performed by : [address] [address] Basophil abs 0.0 0.0 - 0.1 K/cumm [facility] Comment:Testing performed by : [address] [address] Neutrophil pct 55.3 % [facility] Comment: Interpretive Data Percent cell count reference ranges are not reported, since discordance with absolute values may lead to misinterpretation of CBC data. Current Interpretive Data was last revised on 2017. Testing performed by: [address] [address] Imm gran pct 0.3 % [facility] Comment: Interpretive Data Percent cell count reference ranges are not reported, since discordance with absolute values may lead to misinterpretation of CBC data. Current Interpretive Data was last revised on 2017. Testing performed by: [address] [address] Lymphocyte pct 33.5 % [facility] Comment: Interpretive Data Percent cell count reference ranges are not reported, since discordance with absolute values may lead to misinterpretation of CBC data. Current Interpretive Data was last revised on 2017. Testing performed by: [address] [address] Monocyte pct 8.3 % [facility] Comment: Interpretive Data Percent cell count reference ranges are not reported, since discordance with absolute values may lead to misinterpretation of CBC data. Current Interpretive Data was last revised on 2017. Testing performed by: [address] [place] [address] Eosinophil pct 2.4 % MARY JANE Comment: Interpretive Data Percent cell count reference ranges are not reported, since discordance with absolute values may lead to misinterpretation of CBC data. Current Interpretive Data was last revised on 2017. Testing performed by: [address] [address] Basophil pct 0.2 % MARY JANE Comment: Interpretive Data Percent cell count reference ranges are not reported, since discordance with absolute values may lead to misinterpretation of CBC data. Current Interpretive Data was last revised on 2017. Testing performed by: [address] [address] Blood 08/24/2023 2:26 PM CDT 08/24/2023 2:43 PM CDT us Kirit Everett DO LAB BLOOD ORDERABLES Final Res ult MARY JANE [address] [facility] Department [place] [address] * (ABNORMAL) Urinalysis reflex to microscopic and culture Urine (08/24/2023 2:26 PM CDT) Color, ur Yellow Yellow Comment:Testing performed by : [address] [address] Clarity, ur Clear Clear MARY JANE Comment:Testing performed by : [address] [address] Specific gravity, ur 1.019 1.003 - 1.030 MARY JANE Comment:Testing performed by : [address] [address] pH, urine 5.5 MARY JANE Comment: Interpretive Data ? Urine pH is affected by diet, medications, systemic acid-base disturbances, and renal tubular function. ??pH may affect urinary stone formation. ??For example, urine pH below 6.0 may help reduce the tendency for calcium phosphate stones and pH greater than 6.0 may reduce the tendency for uric acid stone formation. Source: [employer] Current Interpretive Data was last revised on 2017 Testing performed by: [facility], [address] [place] [address], [place]., [address] Protein, ur ql Negative Negative MARY JANE Comment:Testing performed by : [address], [place]., [address] Glucose, ur ql Trace(A) Negative MARY JANE PHAM Comment:Testing performed by : [address], [place]., [address] Ketones, ur Negative Negative MARY JANE Comment:Testing performed by : [address], [place]., [address] Bilirubin, ur Negative Negative MARY JANE Comment:Testing performed by : [address], [place]., [address] Blood, ur Trace(A) Negative MARY JANE Comment:Testing performed by : [address], [place]., [address] Urobilinogen, ur <2.0 <2.0 mg/dL MARY JANE Comment:Testing performed by : [address], [place]., [address] Nitrite, ur Negative Negative MARY JANE Comment:Testing performed by : [address], [place]., [address] Leukocyte esterase, ur Negative Negative MARY JANE Comment:Testing performed by : [address], [place]., [address] UA reflex comment Reflex to microscopic UA will be performed. MARY JANE Comment:Testing performed by : [address] [address] Urine 08/24/2023 2:26 PM CDT 08/24/2023 2:43 PM CDT us Kirit Everett DO LAB MICROBIOLOGY - GENERAL ORD ERABLES Final Result MARY JANE PHAM [address] [facility] Department of Laboratories [place], [place] [id number] * Lipase (08/24/2023 2:26 PM CDT) Lipase 23 10 - 99 Units/L Comment:Testing performed by : [address] [place] [address] Blood (Blood, Venous) 08/24/2023 2:26 PM CDT 08/24/2023 2:43 PM CDT Kirit Everett DO LAB BLOOD ORDERABLES Final Res ult [facility] [address] [facility] [place] [address] * (ABNORMAL) Comprehensive metabolic panel (08/24/2023 2:26 PM CDT) Sodium 136 135 - 145 mmol/L Comment:Testing performed by : [address] [address] Potassium, pl 4.2 3.3 - 4.9 mmol/L MARY JANE Comment:Testing performed by : [address] [address] Chloride 100 97 - 110 mmol/L MARY JANE Comment:Testing performed by : [address] [address] CO2 27 22 - 32 mmol/L MARY JANE Comment:Testing performed by : [address] [address] Anion gap 9 2 - 15 mmol/L MARY JANE Comment:Testing performed by : [address] [address] BUN 15 6 - 25 mg/dL MARY JANE Comment:Testing performed by : [address] [address] Creatinine 0.60 0.60 - 1.10 mg/dL MARY JANE Comment:Testing performed by : [address] [address] Glucose 203(H) 70 - 199 mg/dL MARY [...] was last revised 2022. Testing performed by: [address] [address] Calcium 10.0 8.5 - 10.3 mg/dL MARY JANE Comment:Testing performed by : [address] [address] Bilirubin, total 0.5 0.1 - 1.2 mg/dL MARY JANE Comment:Testing performed by : [address] [address] Protein, pl 8.1 6.5 - 8.5 g/dL MARY JANE Comment:Testing performed by : [address] [address] Albumin 3.8 3.5 - 5.0 g/dL MARY JANE Comment:Testing performed by : [address] [address] Alk phos 85 40 - 130 Units/L MARY JANE Comment:Testing performed by : [address] [address] ALT 19 7 - 45 Units/L MARY JANE Comment:Testing performed by : [address] [address] AST 17 10 - 45 Units/L [facility] Comment:Testing performed by : [address] [address] Blood 08/24/2023 2:26 PM CDT 08/24/2023 2:43 PM CDT us Kirit Everett DO LAB BLOOD ORDERABLES Final Res ult MARY JANE PHAM [address] [facility] [place] [address] * (ABNORMAL) CBC with auto differential (08/24/2023 2:26 PM CDT) [facility] WBC 9.2 3.8 - 9.9 K/cumm Comment:Testing performed by : [address], [address] Hgb 13.6 11.9 - 15.5 g/dL MARY JANE Comment:Testing performed by : [address] [address] Hct 42.9 35.6 - 45.5 % MARY JANE Comment:Testing performed by : [address] [address] Plt 295 150 - 400 K/cumm MARY JANE Comment:Testing performed by : [address], [address] MPV 9.9 9.1 - 12.3 fL MARY JANE Comment:Testing performed by : [address], [address] RBC 4.81 3.90 - 5.20 M/cumm MARY JANE Comment:Testing performed by : [address], [address] MCV 89.2 81.3 - 96.4 fL MARY JANE Comment:Testing performed by : [address], [address] MCH 28.3 27.1 - 33.3 pg MARY JANE Comment:Testing performed by : [address] [address] MCHC 31.7(L) 32.3 - 35.7 g/dL MARY JANE Comment:Testing performed by : [address], [address] RDW CV 13.7 11.1 - 14.9 % MARY JANE Comment:Testing performed by : [address], [address] RDW SD 44.2 35.7 - 48.1 fL MARY JANE Comment:Testing performed by : [address], [address] NRBC abs 0.00 0.00 - 0.01 K/cumm MARY JANE Comment:Testing performed by : [address], [address] Blood (Blood, Venous) 08/24/2023 2:26 PM CDT 08/24/2023 2:43 PM CDT us Kirit Everett DO LAB BLOOD ORDERABLES Final Res ult MARY JANE [address] [facility] Department [place] [address] documented in this encounter Visit Diagnoses Diagnosis [...] 08/24/2023 documented in this encounter Care Teams Sales Porter Relationship Specialty Start Date End Date Justen Gale MD 2 [facility] [address] [place] [address] PCP - General 10/09/17 Liu Jerez MD Consulting Physician Gastroenterology 07/28/[address] [place] [address] [facility] [address] [place] [address] Consulting Physician Pulmonary Disease 08/03/17 Khris Arthur MD [address] [facility] [address] [place] [address] Medical Oncologist/Sap Ppm Consultant Medical Oncology 10/23/[address] [place] [address] [facility] [address] [place] [address] Surgeon Orthopedic Surgery 10/23/17 [place] [address] [facility] [address] [place] [address] Consulting Physician Pain Management 10/23/17 [place] [address] [facility] [address] [place] [address] Referring Physician General Surgery 01/26/18 [place] [address] [facility] [address] [place] [address] Consulting Physician Neurology 01/26/18 documented as of this encounter
--- OUTSIDE RECORDS SUMMARY | 2024-04-26 09:14 | XMS_ITS | Encounter Summary ---
Author Organization [facility] Healthcare Address [address] [place] [address] Care Team Providers Care Rough Carpenter Name Role Phone Liu Jerez MD Unavailable Albert Corbin MD Unavailable Justen Gale MD Primary Care Provider Khris Arthur MD Unavailable [phone] Ko Melendez MD Unavailable John Paul Moyer MD Unavailable Annel Rod MD Unavailable Anali MARSHALL MD, Carlos M. Unavailable [phone] Reason for Visit * Reason Comments Urinary Problem Chest Pain Dental Pain Encounter Details Date Type Department Care Team (Late st Contact Info) Description 09/03/2023 1:31 AM CDT - 09/03/2023 4:02 AM CDT Emergency [facility] Emergency Department [address] [place] [address] Daisy Lau MD [address] [facility] [address] [place] [address] Chronic bilateral thoracic back pain (Primary Dx); [...] e alcohol) [facility] Utilities Answer Date Recorded In the past [...] answer 08/15/2023 How often do you attend [facility] or roman catholic services? Patient unable to answer 08/15/2023 Do [...] slept in a half-way (including now)? No 08/15/2023 Personal Safety Answer Date Recorded Have you ever been in or are you currently in a harmful physical or emotional relationship or is someone making you feel afraid or unsafe? 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 10/17/2019 Thyroid nodule 08/07/2018 Dyslipidemia History of breast cancer Intractable pain CVA (cerebral vascular accident) ([facility]) 01/24/2018 Anxiety and depression 11/12/2017 Uncontrolled type 2 diabetes mellitus with hyperglycemia, with long-term current use of insulin ([facility]) 11/06/2017 Allergy to drug 11/06/2017 Dysuria 10/26/2017 Acute left-sided low back pain with left-sided sciatica 10/23/2017 Type 2 diabetes mellitus with neurologic complication, without long-term current use of insulin ([facility]) ([facility]) 10/23/2017 Hypertension 10/23/2017 Long-term current use of opiate analgesic 10/23/2017 Lumbosacral spondylosis without myelopathy 10/23/2017 Radiculopathy, lumbosacral region 10/23/2017 Spinal stenosis of lumbar region without neurogenic claudication 10/23/2017 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 Type 2 diabetes mellitus without complication ([facility]) ([facility]) Constipation Malignant neoplasm of upper-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 ([facility]) 10/17/2017 Cancer of overlapping sites of left female breast ([facility]) 10/13/2017 Chronic anticoagulation Restless leg syndrome Chest pressure 08/01/2017 Positive blood culture 08/01/2017 Hyponatremia 08/01/2017 Diet-controlled diabetes mellitus ([facility]) ([facility]) 08/01/2017 LUL (obstructive sleep apnea) [...] Hypertension Hypertension Osteoarthritis osteoarthritis PE (pulmonary thromboembolism) ([facility]) ([facility]) Sleep apnea Past Surgical [...] ur Yellow Yellow Comment:Testing performed by : [address] [address] Clarity, ur Clear Clear MARY JANE Comment:Testing performed by : [address], [place]., [address] Specific gravity, ur 1.019 1.003 - 1.030 MARY JANE Comment:Testing performed by : [address], [place]., [address] pH, urine 6.5 MARY JANE Comment: Interpretive Data ? Urine pH is affected by diet, medications, systemic acid-base disturbances, and renal tubular function. ??pH may affect urinary stone formation. ??For example, urine pH below 6.0 may help reduce the tendency for calcium phosphate stones and pH greater than 6.0 may reduce the tendency for uric acid stone formation. Source: [facility] Standardized Safety Current Interpretive Data was last revised on 2017 Testing performed by: [address] [address] Protein, ur ql Negative Negative MARY JANE Comment:Testing performed by : [address] [address] Glucose, ur ql Negative Negative MARY JANE Comment:Testing performed by : [address] [address] Ketones, ur Negative Negative MARY JANE Comment:Testing performed by : [address] [address] Bilirubin, ur Negative Negative MARY JANE Comment:Testing performed by : [address] [address] Blood, ur Negative Negative MARY JANE Comment:Testing performed by : [address] [address] Urobilinogen, ur <2.0 <2.0 mg/dL MARY JANE Comment:Testing performed by : [address] [address] Nitrite, ur Negative Negative MARY JANE Comment:Testing performed by : [address], [place]., [address] Leukocyte esterase, ur Negative Negative MARY JANE Comment:Testing performed by : [address] [address] UA reflex comment Reflex conditions for microscopic UA and culture not met. MARY JANE PHAM Comment:Testing performed by : [address] [address] Urine 09/03/2023 2:56 AM CDT 09/03/2023 2:59 AM CDT Daisy Lau MD LAB MICROBIOLOGY - GENERA L ORDERABLES Final Result Performing Organization Address [facility] Co de Phone Number MARY JANE [address] [place] [address] * Lipase (09/03/2023 1:53 AM CDT) [facility] Lipase 31 10 - 99 Units/L Comment:Testing performed by : [address] [address] Blood 09/03/2023 1:53 AM CDT 09/03/2023 3:01 AM CDT Daisy Lau MD LAB BLOOD ORDERABLES Deann l Result Performing Organization Address [facility] Co de Phone Number [address] [address] * (ABNORMAL) Troponin T high-sensitivity 2-hour (09/03/2023 1:53 AM CDT) Pathologist [facility] Trop T hs 17(H) <=14 ng/L Comment: Ref Range High Interpretive Data For further hscTnT resources including the diagnostic algorithm and an aid in interpretation, copy and paste this link: https://nrl.testcatalog.org/show/hsTrop Current Interpretive Data last revised 2020. Testing performed by: [address] [address] Trop T hs delta -1 ng/L MARY JANE PHAM Comment:Testing performed by : [address] [address] Trop T hs interp Insignificant MARY JANE PHAM Comment:Testing performed by : [facility], [facility], [place]., [address] Blood 09/03/2023 1:53 AM CDT 09/03/2023 1:57 AM CDT us Lila MCKEON LAB BLOOD ORDERABLES Final R esult BCPUJA [address] [facility] Department [place] [address] * Pro B-type natriuretic peptide [...] Date: 2017. Testing performed by: [facility], [address] [place] [address]., [address] Blood 09/03/2023 1:50 AM CDT 09/03/2023 2:28 AM CDT us Daisy Lau MD LAB BLOOD ORDERABLES Deann l Result Performing Organization Address City/[facility]/ZIP Co de Phone Number [facility] [address] [facility] Department [place] [address] * ECG 12 lead (09/02/2023 11:58 PM CDT) Pathologist [facility] Ventricular Rate EKG/Min 78 BPM [facility] Atrial Rate 78 BPM [facility] VA-Interval (MSEC) 126 ms [facility] QRS-Interval (MSEC) 88 ms [facility] QT-Interval (MSEC) 384 ms [facility] QTc 437 ms [facility] P [place] 40 degrees [facility] R [place] -6 degrees [facility] T [place] 37 degrees [facility] Diagnosis Normal sinus rhythm Normal ECG When compared with ECG of 11-MAY-2023 11:51, No significant change was found Confirmed by CHUCK SALAS M.D. ([id number]) on 09/03/2023 5:38:21 PM [facility] 09/02/2023 11:5 8 PM CDT 09/03/2023 5:38 PM CDT us Daisy Lau MD ECG ORDERABLES Final Res ult Performing Organization Address [facility]/ZIP Co de Phone Number [facility] * POCT glucose (09/02/2023 11:54 PM CDT) Pathologist [facility] Glucose, POC 81 70 - 199 mg/dL Comment:Testing performed by : [facility], [address] [place] [address]., [address] Glucose comment 1 Use This Result MARY JANE PHAM Comment:Testing performed by : [facility], [address] [place] [address]., [address] Blood 09/02/2023 11:5 4 PM CDT 09/02/2023 11:54 PM CDT us Notinfile Unknown LAB POCT ORDERABLES - DEVICE F inal Result MARY JANE [address] [facility] Department [place] [address] * eGFR (09/02/2023 11:52 PM CDT) [facility] eGFR 81 >=60 mL/min/1. 73 m2 Comment: [...] was last reviewed 2021. Testing performed by: [address] [address] Blood 09/02/2023 11:5 2 PM CDT 09/03/2023 12:01 AM CDT us Daisy Lau MD LAB BLOOD ORDERABLES Deann bowman Result [facility] [address] [facility] Department [place] [address] * (ABNORMAL) Differential, auto (09/02/2023 11:52 PM CDT) Neutrophil abs 7.8(H) 1.5 - 6.5 K/cumm Comment:Testing performed by : [address] [address] Imm gran abs 0.0 0.0 - 0.1 K/cumm MARY JANE Comment:Testing performed by : [address] [address] Lymphocyte abs 3.8(H) 0.8 - 3.3 K/cumm MARY JANE Comment:Testing performed by : [address] [address] Monocyte abs 1.0(H) 0.2 - 0.8 K/cumm [facility] Comment:Testing performed by : [address] [address] Eosinophil abs 0.3 0.0 - 0.5 K/cumm [facility] Comment:Testing performed by : [address] [address] Basophil abs 0.0 0.0 - 0.1 K/cumm [facility] Comment:Testing performed by : [address] [address] Neutrophil pct 60.0 % MARY JANE Comment: Interpretive Data Percent cell count reference ranges are not reported, since discordance with absolute values may lead to misinterpretation of CBC data. Current Interpretive Data was last revised on 2017. Testing performed by: [address] [address] Imm gran pct 0.3 % [facility] Comment: Interpretive Data Percent cell count reference ranges are not reported, since discordance with absolute values may lead to misinterpretation of CBC data. Current Interpretive Data was last revised on 2017. Testing performed by: [address] [address] Lymphocyte pct 29.6 % [facility] Comment: Interpretive Data Percent cell count reference ranges are not reported, since discordance with absolute values may lead to misinterpretation of CBC data. Current Interpretive Data was last revised on 2017. Testing performed by: [address] [address] Monocyte pct 7.7 % [facility] Comment: Interpretive Data Percent cell count reference ranges are not reported, since discordance with absolute values may lead to misinterpretation of CBC data. Current Interpretive Data was last revised on 2017. Testing performed by: [address] [address] Eosinophil pct 2.2 % [facility] Comment: Interpretive Data Percent cell count reference ranges are not reported, since discordance with absolute values may lead to misinterpretation of CBC data. Current Interpretive Data was last revised on 2017. Testing performed by: [address] [address] Basophil pct 0.2 % [facility] Comment: Interpretive Data Percent cell count reference ranges are not reported, since discordance with absolute values may lead to misinterpretation of CBC data. Current Interpretive Data was last revised on 2017. Testing performed by: [address] [address] Blood 09/02/2023 11:5 2 PM CDT 09/03/2023 12:01 AM CDT us Daisy Lau MD LAB BLOOD ORDERABLES Deann l Result [facility] [address] [facility] Department [place] [address] * (ABNORMAL) Troponin T high-sensitivity series (baseline, 2hr, 4hr, 6hr) (09/02/2023 11:52 PM CDT) Pathologist [facility] Trop T hs 18(H) <=14 ng/L Comment: Ref Range High Interpretive Data For further hscTnT resources including the diagnostic algorithm and an aid in interpretation, copy and paste this link: https://nrl.testcatalog.org/show/hsTrop Current Interpretive Data last revised 2020. Testing performed by: [address] [address] Blood 09/02/2023 11:5 2 PM CDT 09/03/2023 12:01 AM CDT Daisy Lau MD LAB BLOOD ORDERABLES Edit ed Result - Final [facility] [address] [facility] Department [place] [address] * (ABNORMAL) Comprehensive metabolic panel (09/02/2023 11:52 PM CDT) [facility] Sodium 130(L) 135 - 145 mmol/L Comment:Testing performed by : [address] [address] Potassium, pl 3.7 3.3 - 4.9 mmol/L MARY JANE Comment:Testing performed by : [address] [address] Chloride 93(L) 97 - 110 mmol/L MARY JANE Comment:Testing performed by : [address] [address] CO2 27 22 - 32 mmol/L MARY JANE Comment:Testing performed by : [address] [address] Anion gap 10 2 - 15 mmol/L MARY JANE Comment:Testing performed by : [address] [address] BUN 16 6 - 25 mg/dL MARY JANE Comment:Testing performed by : [address] [address] Creatinine 0.80 0.60 - 1.10 mg/dL MARY JANE Comment:Testing performed by : [address] [address] Glucose 84 70 - 199 mg/dL MARY [...] was last revised 2022. Testing performed by: [address] [address] Calcium 10.4(H) 8.5 - 10.3 mg/dL MARY JANE Comment:Testing performed by : [address] [address] Bilirubin, total 0.4 0.1 - 1.2 mg/dL MARY JANE Comment:Testing performed by : [address] [address] Protein, pl 8.7(H) 6.5 - 8.5 g/dL MARY JANE Comment:Testing performed by : [address] [address] Albumin 4.1 3.5 - 5.0 g/dL MARY JANE Comment:Testing performed by : [address] [address] Alk phos 95 40 - 130 Units/L MARY JANE Comment:Testing performed by : [address] [address] ALT 16 7 - 45 Units/L MARY JANE Comment:Testing performed by : [address] [address] AST 16 10 - 45 Units/L MARY JANE Comment:Testing performed by : [address] [place] [address] Blood 09/02/2023 11:5 2 PM CDT 09/03/2023 12:01 AM CDT us Daisy Lau MD LAB BLOOD ORDERABLES Deann bowman Result [facility] [address] [facility] Department [place] [address] * (ABNORMAL) CBC with auto differential (09/02/2023 11:52 PM CDT) WBC 13.0(H) 3.8 - 9.9 K/cumm Comment:Testing performed by : [address] [address] Hgb 13.9 11.9 - 15.5 g/dL MARY JANE Comment:Testing performed by : [address] [address] Hct 42.8 35.6 - 45.5 % MARY JANE Comment:Testing performed by : [address] [address] Plt 310 150 - 400 K/cumm MARY JANE Comment:Testing performed by : [address] [address] MPV 10.0 9.1 - 12.3 fL MARY JANE Comment:Testing performed by : [address] [address] RBC 4.79 3.90 - 5.20 M/cumm MARY JANE Comment:Testing performed by : [address] [address] MCV 89.4 81.3 - 96.4 fL MARY JANE Comment:Testing performed by : [address] [address] MCH 29.0 27.1 - 33.3 pg MARY JANE PHAM Comment:Testing performed by : [address] [address] MCHC 32.5 32.3 - 35.7 g/dL MARY JANE PHAM Comment:Testing performed by : [facility], [address] [place] [address]., [address] RDW CV 13.7 11.1 - 14.9 % MARY JANE PHAM Comment:Testing performed by : [address] [address] RDW SD 44.7 35.7 - 48.1 fL MARY JANE PHAM Comment:Testing performed by : [address] [address] NRBC abs 0.00 0.00 - 0.01 K/cumm MARY JANE PHAM Comment:Testing performed by : [facility], [address] [place] [address]., [address] Blood 09/02/2023 11:5 2 PM CDT 09/03/2023 12:01 AM CDT us Daisy Lau MD LAB BLOOD ORDERABLES Deann l Result Performing Organization Address City/State/[facility] Co de Phone Number MARY JANE PHAM [address] [facility] Department [place] [address] documented in this encounter Visit Diagnoses Diagnosis [...] 09/02/2023 documented in this encounter Care Teams Rough Carpenter Relationship Specialty Start Date End Date Justen Gale MD [address] [address] PCP - General 10/09/17 Liu Jerez MD Consulting Physician Gastroenterology 07/28/17 [place] [address] [facility] [address] [place] [address] Consulting Physician Pulmonary Disease 08/03/17 Khris Arthur MD [address] [facility] [address] [place] [address] Medical Oncologist/Elevator Starter Medical Oncology 10/23/17 [place] [address] [facility] [address] [place] [address] Surgeon Orthopedic Surgery 10/23/17 [place] [address] [address] Consulting Physician Pain Management 10/23/17 [place] [address] [facility] [address] [place] [address] Referring Physician General Surgery 01/26/18 [place] [address] [facility] [address] [place] [address] Consulting Physician Neurology 01/26/18 documented as of this encounter
--- OUTSIDE RECORDS SUMMARY | 2024-04-26 09:14 | XMS_ITS | Encounter Summary ---
Author Organization [facility] Address [address] [place] [address] Phone Care Team Providers Care Other Sales Support Worker Name Role Phone Liu Jerez MD Unavailable Albert Corbin MD Unavailable Justen Gale MD Primary Care Provider Khris Arthur MD Unavailable [phone] Ko Melendez MD Unavailable John Paul Moyer MD Unavailable Annel Rod MD Unavailable Anali MARSHALL MD, Carlos M. Unavailable [phone] Encounter Details Date Type Department Care Team (Late st Contact Info) Description 05/23/2023 Orders Only [facility] Oncology [address] [facility] 7th [place] [address] [place] [address] Khris Arthur MD [address] [facility] [address] [place] [address] Chronic anticoagulation; History of pulmonary embolism; History [...] often do you attend chur ch or muslim services? Never 02/11/2022 Do you belong to [...] in a usp (including now)? No 02/11/2022 Personal Safety Answer Date Recorded Have you ever been in or are you currently in a harmful physical or emotional relationship or is someone making you feel afraid or unsafe? 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 Gender Identity Not on file Sexual Orientation [...] documented as of this encounter Care Teams Other Sales Support Worker Relationship Specialty Start Date End Date Justen Gale MD 2 [facility] [address] [place] [address] PCP - General 10/09/17 Liu Jerez MD Consulting Physician Gastroenterology 07/28/17 [place] [address] [facility] [address] [place] [address] Consulting Physician Pulmonary Disease 08/03/17 Khris Arthur MD [address] [place] [address] [address] [place] [address] Medical Oncologist/Hand Counter Medical Oncology 10/23/17 [place] [address] [facility] [address] [place] [address] Surgeon Orthopedic Surgery 10/23/17 [place] [address] [facility] [address] [place] [address] Consulting Physician Pain Management 10/23/17 [place] [address] [facility] [address] [place] [address] Referring Physician General Surgery 01/26/18 [place] [address] [facility] [address] [place] [address] Consulting Physician Neurology 01/26/18 documented as of this encounter
--- OUTSIDE RECORDS SUMMARY | 2024-04-26 09:14 | XMS_ITS | Encounter Summary ---
Author Organization [facility] Healthcare Address [address] [place] [address] Care Team Providers Care Die Polisher Name Role Phone Liu Jerez MD Unavailable [phone] Albert Corbin MD Unavailable Justen Gale MD Primary Care Provider [phone] Khris Arthur MD Unavailable [phone] Ko Melendez MD Unavailable John Paul Moyer MD Unavailable [phone] Annel Rod MD Unavailable Anali MARSHALL MD, Carlos M. Unavailable Encounter Details Date Type Department Care Team (Latest Contact Info) Description 08/15/2023 10:41 AM CDT - 08/15/2023 11:59 PM CDT Hospital Encounter [facility] [address] [place] [phone] Discharge Disposition: Discharge to home or self care Social History Tobacco Use Types Packs/Day Years Used Date Smoking Tobacco: Former Smokeless Tobacco: Never Comments:remote tobacco use Alcohol Use Standard Drinks/Week Comments No 0 (1 standard drink = 0.6 oz pur e alcohol) [facility] Utilities Answer Date Recorded In the past [...] How often do you attend chur or mormon services? Patient unable to answer [...] slept in a halfway (including now)? No 08/15/2023 Personal Safety Answer Date Recorded Have you ever been in or are you currently in a harmful physical or emotional relationship or is someone making you feel afraid or unsafe? 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 Gender Identity Not on file Sexual [...] filedocumented in this encounter Care Teams Die Polisher Relationship Specialty Start Date End Date Justen Gale MD [address] [address] PCP - General 10/09/17 Liu Jerez MD Consulting Physician Gastroenterology 07/28/17 [place] [address] [facility] [address] [place] [address] Consulting Physician Pulmonary Disease 08/03/17 Khris Arthur MD [address] [facility] [address] [place] [address] Medical Oncologist/Agriculture Consultant Medical Oncology 10/23/17 [place] [address] [facility] [address] [place] [address] Surgeon Orthopedic Surgery 10/23/17 [place] [address] [address] Consulting Physician Pain Management 10/23/17 [place] [address] [facility] [address] [place] [address] Referring Physician General Surgery 01/26/18 [place] [address] [facility] [address] [place] [address] Consulting Physician Neurology 01/26/18 documented as of this encounter
--- OUTSIDE RECORDS SUMMARY | 2024-04-26 09:14 | XMS_ITS | Encounter Summary ---
Author Organization [facility] Healthcare Address [address] [place] [address] Care Team Providers Care Powder Guard Name Role Phone Liu Jerez MD Unavailable [phone] Albert Corbin MD Unavailable [phone] Justen Gale MD Primary Care Provider Khris Arthur MD Unavailable [phone] Ko Melendez MD Unavailable John Paul Moyer MD Unavailable Annel Rod MD Unavailable Anali MARSHALL MD, Carlos M. Unavailable [phone] Reason for Referral * Consultation (Routine) - Authorized Specialty Diagnoses / Procedures Referred By Contkristina t Referred To Contact Diagnoses Allergy to drug Multiple drug allergies Teressa Wilkins MD [address] [facility] [place] [address] Phone: tel: fax: [facility] [address] [place] [address] Phone: tel: fax: Referral ID Status Reason Start Date Expiration Date Visits Requested Visits Authorized [id number] Authorized Specialty Services Required 08/18/2023 09/16/2024 99 99 Question Answer Please select the performing region: [facility] (All Locations) [167] Please select the performing department: [facility] 2300 [[id number]] # of visits: 1 * Consultation (Routine) - Authorized Specialty Diagnoses / Procedures Referred By Elyssa benavides Referred To Contact Gastroenterology Diagnoses Abdominal pain Nausea and vomiting, unspecified vomiting type Type 2 diabetes mellitus without complication, with long-term current use of insulin (CMS/HCC) (HCC) Diabetic gastroparesis (CMS/HCC) (HCC) Teressa Wilkins MD [address] [place] [address] Phone: tel: fax: [facility] (All Locations) Referral ID Status Reason Start Date Expiration Date Visits Requested Visits Authorized [id number] Authorized Specialty Services Required 08/18/2023 06/20/2025 99 99 Question Answer Process Instructions: THE AMBULATORY REFERRAL TO GASTROENTEROLOGY IS NOT AN ORDER FOR A PROCEDURE (I.E. EGD, COLONOSCOPY.) USE THE DIRECT SCHEDULING CASE REQUEST ORDER (GI50) IF THE PATIENT REQUIRES A PROCEDURE TO BE PERFORMED. Please select the performing region: [facility] (All Locations) [167] # of visits: 1 Comments Diabetic gastroparesis suspected Reason for Visit * Reason Comments Abdominal Pain Nausea Diarrhea * Auth/Cert Specialty Diagnoses / Procedures Referred By Elyssa benavides Referred To Contact Diagnoses Abdominal pain Procedures NA Referral ID Status Reason Start Date Expiration Date Visits Re quested Visits Authorized [id number] 1 1 Encounter Details Date Type Department Care Team (Latest Contact Info) Description 08/14/2023 2:32 PM CDT - 08/18/2023 1:15 PM CDT Hospital Encounter [facility] 4 Med Surg [address] [place] [address] TelemaqPhilippe montero MD [address] [place] [address] [place] [address] Teressa Wilkins MD [facility] [place] [address] Abdominal pain (Primary Dx); Nausea and vomiting, [...] drink = 0.6 oz pur e alcohol) [facility] Utilities Answer Date Recorded In the past 12 months has [employer], gas, oil, or water [employer] threatened to shut off services in your [...] you attend chur ch or buddhist services? 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 Gender Identity Not on file [...] Patient Age - 68 yrs Patient - [id number] [facility] - [id number] Document Creation Date: 08/18/2023 Admitting Provider, MD: Philippe Mcguire MD Discharge Provider, MD: Teressa Wilkins MD Primary Care Physician at Discharge: Justen Gale MD [phone] Admission Date: 08/14/2023 Discharge Date/time: Admission Location: [facility] LOS - LOS: 4 days DETAILS [...] Your Medications These medications were sent to [id number] - [place], [place] - [address] [facility] [address], [facility] [address] fosfomycin 3 gram packet methenamine 1 gram [...] Family Medicine Relationship: PCP - General [address] [address] Next Steps: Follow up in 1 week(s) [facility] (All Locations) Next Steps: Follow up Comments: Diabetic gastroparesis suspected Questions: Process Instructions: THE AMBULATORY REFERRAL TO GASTROENTEROLOGY IS NOT AN ORDER FOR A PROCEDURE (I.E. EGD, COLONOSCOPY.) USE THE DIRECT SCHEDULING CASE REQUEST ORDER (GI50) IF THE PATIENT REQUIRES A PROCEDURE TO BE PERFORMED. Please select the performing region: [facility] (All Locations) # of visits: 1 Referral Status: Pending Authorization [facility] (All Locations) Next Steps: Follow up Questions: Please select the performing region: [facility] (All Locations) Please select the performing department: [facility] 2300 # of visits: 1 Referral Status: Pending Authorization Please schedule an appointment with the following provider(s): Justen Gale MD [address] [facility] [address] [address] Follow up in 1 week(s) [facility] (All Locations) [facility] (All Locations) ANCILLARY INFORMATION Other Procedures & [...] -- 0.50* -- 0.50* -- -- 0.60 [id number]-[id number] mL/min/1.73 m2 -- -- >90 -- >90 [...] Everywhere. * Chronic Abdominal Pain (AfterCare(R) Instructions(ER/ED)) (Mauritian) documented in this encounter Medications at Time of Discharge albuterol HFA (PROVENTIL HFA,VENTOLIN HFA,PROAIR HFA) 90 mcg/actuation inhaler Inhale 2 puffs every 6 (six) hours as needed for wheezing or shortness of breath 04/19/2021 BD Ultra-Fine Short Pen Needle 31 gauge x 5/16 needle USE 6 TIMES DAILY DIRECTED 06/24/2021 blood glucose diagnostic (Ebid.co.zw Ultra Test) strip 4 (four) times a [...] verbal cues Trials/Comments 1 Pt performed good qxr-zpxhn-eet transfers. Ambulation Functional Ambulation Category 2 Ambulation [...] Ryan Partida M.D. RB: LALA Report ID: [id number] Reading Location: [id number] CT Abdomen Pelvis W Contrast Result Date: [...] M.D. JR: D: 2:29 PM Report ID: [id number] Reading Location: [id number] VAS LEFT VENOUS DUPLEX LE Result Date: [...] DVT prophylaxis: Xarelto PT/OT: Ordered Case discussed Clearance Representative Bedside nurse Medical decision making complexity low Voice recognition software MModal Fluency Direct may have been used dictate and transcribe this document. Well Flow Operator variances may occur. Despite proofreading, typographical errors [...] chair for her daughter. 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 Pt thanked mri special procedures technologist for visit. 08/17/23 1200 Time Spent Start Time 1145 Stop Time 1200 Time Calculation (min) 15 min Patient Spiritual Assessment Spirituality Assessed Yes Confucianist Affiliation Mosque Active in Catholic Yes Place of Jewish [facility] Clinical Encounter Type Visited With [...] 25 mg oral Nightly Ruben Quiros LTye, LAWN MAINTENANCE WORKER glucagon injection 1 mg 1 mg intramuscular Q30 Min PRN Mayonr, Philippe Cheney MD HYDROcodone-acetaminophen (NORCO) 5-325 mg [...] Units subcutaneous TID with meals Ruben Quiros, LAWN MAINTENANCE WORKER methocarbamoL (ROBAXIN) tablet 500 mg 500 mg [...] Use: Not At Risk (06/16/2023) Received from [facility] Health AUDIT-C Frequency of [...] Ciprofloxacin causes rash. Bactrim causes itching Genaro oCy MD [facility] [place] [facility] [phone] * Genaro Coy MD - 08/16/2023 3:49 [...] Use: Not At Risk (06/16/2023) Received from [facility] Health AUDIT-C Frequency of [...] referral to Allergy immunology Genaro Coy MD [facility] [place] [facility] [phone] * Jimmie Su PTA - 08/16/2023 3:07 [...] Ryan Partida M.D. RB: LALA Report ID: [id number] Reading Location: [id number] CT Abdomen Pelvis W Contrast Result Date: [...] M.D. JR: D: 2:29 PM Report ID: [id number] Reading Location: [id number] VAS LEFT VENOUS DUPLEX LE Result Date: [...] DVT prophylaxis: Xarelto PT/OT: Ordered Case discussed Clearance Representative Bedside nurse My total encounter time on [...] been used dictate and transcribe this document. Well Flow Operator variances may occur. Despite proofreading, typographical errors [...] and is awaiting to be seen by traffic safety administrator. OBJECTIVE Vitals: 24hr Min/Max: Temp Min: 36.5 [...] Estimated Average Glucose 194 mg/dL Thyroid Function [place] Collection Time: 08/14/23 8:47 PM Result Value [...] Ryan Partida M.D. RB: LALA Report ID: [id number] Reading Location: [place] [address] CT Abdomen Pelvis W Contrast Result Date: [...] M.D. JR: D: 2:29 PM Report ID: [id number] Reading Location: [id number] VAS LEFT VENOUS DUPLEX LE Result Date: [...] DVT prophylaxis: Xarelto PT/OT: Ordered Case discussed Clearance Representative Bedside nurse My total encounter time on 08/15/2023 was 39 minutes which was spent in the activities documented in the note. This includes the time spent prior to the visit and after the visit in direct care of the patient. This time does not include the time spent in any separately reportable services. Voice recognition software [employer] Fluency Direct may have been used dictate and transcribe this document. Well Flow Operator variances may occur. Despite proofreading, typographical errors [...] walker outside home) Prior Function Level of [place] Needs assistance with homemaking;Needs assistance with ADLs;Independent [...] this encounter H&P Notes * Ruben Quiros LAWN MAINTENANCE WORKER - 08/14/2023 6:46 PM CDT Images from the original note were not included. History and Physical Date of Service: 08/14/2023 Primary Care Physician: Justen Gale MD [phone] CHIEF COMPLAINT: Patient is a 68 y.o. [...] thyroid Thyroid disease DVT (deep venous thrombosis) ([facility]) ([facility]) HX OTHER MEDICAL restless leg syndrome HX OTHER MEDICAL RLS Hypertension Hypertension Osteoarthritis osteoarthritis PE (pulmonary thromboembolism) ([facility]) ([facility]) Sleep apnea Past Surgical History: [...] Use: Not At Risk (06/16/2023) Received from [facility] Health AUDIT-C Frequency of [...] Ryan Partida M.D. RB: LALA Report ID: [id number] Reading Location: [id number] CT Abdomen Pelvis W Contrast Result Date: [...] M.D. JR: D: 2:29 PM Report ID: [id number] Reading Location: [id number] VAS LEFT VENOUS DUPLEX LE Result Date: [...] the conversation: patient Summary of the conversation: LAWN MAINTENANCE WORKER discussed with patient life saving interventions such [...] any separately reportable services. Voice recognition software [place] Direct may have been used to dictate and transcribe this document. Well Flow Operator variances may occur. Despite proofreading, typographical errors may occur. 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 Pt independent from home with spouse, anticipate returning home at in. No social service needs identified at this [...] lower abdominal pain. Patient was [facility] and treated forurinary tract infection. Denied any [...] (pulmonary thromboembolism) ([facility]) ([facility]) Sleep apnea Past Surgical History: [...] intra-catheter PRN Philippe Mcguire MD No current [facility]-ordered outpatient medications on file. Immunosuppressive Medications: Immunosuppressive [...] Use: Not At Risk (06/16/2023) Received from [facility] Health AUDIT-C Frequency of [...] 1 mg (1 mg intravenous Given 08/14/23 0986) CURRENT HOME MEDICATIONS Current Facility-Administered Medications: ondansetron [...] Use: Not At Risk (06/16/2023) Received from [facility] Health AUDIT-C Frequency of [...] Nightly This examination was transcribed using the iCabbi voice recognition system without human molding machine operator helper. In an effort to expedite patient care, this report has not been adjusted for typographical, grammatical, and syntax by a trained biomedical engineering aide. Yesi Rivera PA 08/14/23 1757 Cosigned by [...] CHF Diagnostic Criteria CHF The commonly used Nordland Diagnostic Criteria for Heart Failure requires the [...] The epidemiology of congestive heart failure: the Nord[place] Heart Study perspective - [facility] (nih.gov) Congestive Heart Failure - StatPearls - [facility] (nih.gov) Acute Heart Failure: Definition, Classification and Epidemiology - [facility] (nih.gov) From the ICD-10-CM Coding Guidelines, use [...] inside home, walker outside home) Level of [place] Needs assistance with homemaking;Needs assistance with ADLs;Independent [...] 2007 Page: 143 Effective with discharges: January [facility]: Cancer Fatigue From the ICD-10-CM Coding [...] Interview Note Information Obtained From: Patient (08/15/23 1798) Admission Source: ED from home Impression: Presented [...] arranged?: No (08/15/23 1237) Health Insurance Coverage: [facility] Prescription Coverage: IDPA spend down Pharmacy: [id number] - [place], [place] - [address] AT [facility] [address] [facility] [address] [id number] - [place], [place] - [address] AT [facility] [address]) & [address] [facility] [address] Primary Care Provider: Justen Gale MD Prior [...] complication, with long-term current use of insulin ([facility]) (HCC) Diabetic gastroparesis ([facility]) ([facility]) Expected: 09/01/2023 (Approximate), Expires: 08/17/2024 Ambulatory referral [...] (ABNORMAL) POCT glucose (08/18/2023 11:40 AM CDT) [facility] Glucose, POC 210(H) 70 - 199 mg/dL Comment:Testing performed by : [address] [address] Blood 08/18/2023 11:4 0 AM CDT 08/18/2023 11:40 AM CDT Teressa Mendes MD LAB POCT ORDERABLES - DEVICE Final Result Performing Organization Address [facility] Co de Phone Number MARY JANE [address] [place] [address] * POCT glucose (08/18/2023 8:20 AM CDT) Glucose, POC 163 70 - 199 mg/dL Comment:Testing performed by : [address] [address] Blood 08/18/2023 8:20 AM CDT 08/18/2023 8:20 AM CDT Teressa Mendes MD LAB POCT ORDERABLES - DEVICE Final Result Performing Organization Address [facility] de Phone Number [address] [address] * POCT glucose (08/17/2023 8:50 PM CDT) Glucose, POC 151 70 - 199 mg/dL Comment:Testing performed by : [address] [address] Glucose comment 1 Use This Result MARY JANE Comment:Testing performed by : [address] [address] Blood 08/17/2023 8:50 PM CDT 08/17/2023 8:50 PM CDT Teressa Mendes MD LAB POCT ORDERABLES - DEVICE Final Result Performing Organization Address [facility]/ZIP Co de Phone Number [place] [address] [facility] of [place] [address] * POCT glucose (08/17/2023 4:53 PM CDT) Glucose, POC 181 70 - 199 mg/dL Comment:Testing performed by : [facility], [address] [place] [address]., [address] Blood 08/17/2023 4:53 PM CDT 08/17/2023 4:53 PM CDT Teressa Mendes MD LAB POCT ORDERABLES - DEVICE Final Result MARY JANE [facility] [place] [address] * US VEIN DUPLEX LOWER EXTREMITY LEFT LIMITED, UNILATERAL (08/17/2023 3:58 PM CDT) Anatomical Region Laterality Modality Vascular Left Ultrasound 08/17/2023 Narrative 08/21/2023 2:58 PM CDT [employer] Job ID: [id number] [employer] Document ID: [id number] Dictated date/time: [id number] REASON FOR STUDY Left calf pain. ?? No thrombus seen in the left common femoral, femoral, popliteal, posterior tibial, peroneal or greater saphenous veins. IMPRESSION No evidence of deep venous thrombosis in the left lower extremity. Job ID/Internal Job ID: ??[id number] us Teressa Mendes MD [facility] OCEDURES Final Result * (ABNORMAL) POCT glucose (08/17/2023 11:59 AM CDT) Glucose, POC 209(H) 70 - 199 mg/dL Comment:Testing performed by : [facility], [address] [place] [address]., [id number] Blood 08/17/2023 11:5 9 AM CDT 08/17/2023 11:59 AM CDT Teressa Mendes MD LAB POCT ORDERABLES - DEVICE Final Result Performing Organization Address [facility] de Phone Number [address] [place] [address] * POCT glucose (08/17/2023 8:39 AM CDT) [facility] Glucose, POC 141 70 - 199 mg/dL Comment:Testing performed by : [facility], [address] [place] [address]., [address] Blood 08/17/2023 8:39 AM CDT 08/17/2023 8:39 AM CDT Teressa Mendes MD LAB POCT ORDERABLES - DEVICE Final Result Performing Organization Address [facility] Phone Number [address] [place] [address] * eGFR (08/17/2023 7:24 AM CDT) [facility] eGFR >90 >=60 mL/min/1. 73 m2 [...] was last reviewed 2021. Testing performed by: [address] [address] Blood 08/17/2023 7:24 AM CDT 08/17/2023 8:23 AM CDT us Philippe Mcguire MD LAB BLOOD ORDERABLES Final Result MARY JANE [facility] Department [place] [address] * Differential, auto (08/17/2023 7:24 AM CDT) Neutrophil abs 3.9 1.5 - 6.5 K/cumm Comment:Testing performed by : [address] [address] Imm gran abs 0.0 0.0 - 0.1 K/cumm MARY JANE Comment:Testing performed by : [address] [address] Lymphocyte abs 2.3 0.8 - 3.3 K/cumm MARY JANE Comment:Testing performed by : [address] [address] Monocyte abs 0.6 0.2 - 0.8 K/cumm MARY JANE Comment:Testing performed by : [address] [address] Eosinophil abs 0.3 0.0 - 0.5 K/cumm MARY JANE Comment:Testing performed by : [address] [address] Basophil abs 0.0 0.0 - 0.1 K/cumm MARY JANE Comment:Testing performed by : [address] [address] Neutrophil pct 53.6 % CERNER Comment: Interpretive Data Percent cell count reference ranges are not reported, since discordance with absolute values may lead to misinterpretation of CBC data. Current Interpretive Data was last revised on 2017. Testing performed by: [address] [address] Imm gran pct 0.3 % [facility] Comment: Interpretive Data Percent cell count reference ranges are not reported, since discordance with absolute values may lead to misinterpretation of CBC data. Current Interpretive Data was last revised on 2017. Testing performed by: [address] [address] Lymphocyte pct 32.4 % [facility] Comment: Interpretive Data Percent cell count reference ranges are not reported, since discordance with absolute values may lead to misinterpretation of CBC data. Current Interpretive Data was last revised on 2017. Testing performed by: [address] [address] Monocyte pct 8.9 % CERNER Comment: Interpretive Data Percent cell count reference ranges are not reported, since discordance with absolute values may lead to misinterpretation of CBC data. Current Interpretive Data was last revised on 2017. Testing performed by: [address] [address] Eosinophil pct 4.5 % CERNER Comment: Interpretive Data Percent cell count reference ranges are not reported, since discordance with absolute values may lead to misinterpretation of CBC data. Current Interpretive Data was last revised on 2017. Testing performed by: [address] [address] Basophil pct 0.3 % CERNER Comment: Interpretive Data Percent cell count reference ranges are not reported, since discordance with absolute values may lead to misinterpretation of CBC data. Current Interpretive Data was last revised on 2017. Testing performed by: [address] [address] Blood 08/17/2023 7:24 AM CDT 08/17/2023 8:24 AM CDT us Philippe Mcguire MD LAB BLOOD ORDERABLES Final Result MARY JANE [address] [facility] Department of Laboratories [place], [place] [id number] * (ABNORMAL) CBC with auto differential (08/17/2023 7:24 AM CDT) [facility] Signature WBC 7.2 3.8 - 9.9 K/cumm Comment:Testing performed by : [address] [address] Hgb 12.2 11.9 - 15.5 g/dL MARY JANE Comment:Testing performed by : [address] [address] Hct 39.1 35.6 - 45.5 % MARY JANE Comment:Testing performed by : [address] [address] Plt 242 150 - 400 K/cumm MARY JANE Comment:Testing performed by : [address] [address] MPV 9.9 9.1 - 12.3 fL MARY JANE Comment:Testing performed by : [address] [address] RBC 4.29 3.90 - 5.20 M/cumm MARY JANE Comment:Testing performed by : [address] [address] MCV 91.1 81.3 - 96.4 fL MARY JANE Comment:Testing performed by : [address] [address] MCH 28.4 27.1 - 33.3 pg MARY JANE Comment:Testing performed by : [address] [address] MCHC 31.2(L) 32.3 - 35.7 g/dL MARY JANE Comment:Testing performed by : [address] [address] RDW CV 13.4 11.1 - 14.9 % MARY JANE Comment:Testing performed by : [address] [address] RDW SD 45.2 35.7 - 48.1 fL MARY JANE PHAM Comment:Testing performed by : [address] [address] NRBC abs 0.00 0.00 - 0.01 K/cumm MARY JANE PHAM Comment:Testing performed by : [address] [address] Blood 08/17/2023 7:24 AM CDT 08/17/2023 8:24 AM CDT Philippe Mcguire MD LAB BLOOD ORDERABLES Final Result MARY JANE PHAM [address] [place] [address] Department of [place] [address] * (ABNORMAL) Basic metabolic panel (08/17/2023 7:24 AM CDT) Sodium 139 135 - 145 mmol/L Comment:Testing performed by : [address] [address] Potassium, pl 3.8 3.3 - 4.9 mmol/L MARY JANE PHAM Comment:Testing performed by : [address], [address] Chloride 101 97 - 110 mmol/L MARY JANE Comment:Testing performed by : [address], [address] CO2 29 22 - 32 mmol/L MARY JANE Comment:Testing performed by : [address] [address] Anion gap 9 2 - 15 mmol/L MARY JANE Comment:Testing performed by : [address] [address] BUN 7 6 - 25 mg/dL MARY JANE Comment:Testing performed by : [address] [address] Creatinine 0.50(L) 0.60 - 1.10 mg/dL MARY JANE Comment:Testing performed by : [address] [address] Glucose 141 70 - 199 mg/dL MARY [...] was last revised 2022. Testing performed by: [address] [address] Calcium 9.2 8.5 - 10.3 mg/dL MARY JANE Comment:Testing performed by : [address] [address] Blood 08/17/2023 7:24 AM CDT 08/17/2023 8:23 AM CDT us Philippe Mcguire MD LAB BLOOD ORDERABLES Final Result [facility] [address] [facility] Department [place] [address] * POCT glucose (08/16/2023 7:53 PM CDT) [facility] Glucose, POC 168 70 - 199 mg/dL Comment:Testing performed by : [address] [address] [address] Glucose comment 1 Use This Result MARY JANE Comment:Testing performed by : [address] [address] Glucose comment 2 RN/MD Notified MARY JANE Comment:Testing performed by : [address] [address] Blood 08/16/2023 7:53 PM CDT 08/16/2023 7:53 PM CDT us Teressa Mendes MD LAB POCT ORDERABLES - DEVICE Final Result Performing Organization Address [facility] de Phone Number [address] [address] * POCT glucose (08/16/2023 4:57 PM CDT) Glucose, POC 151 70 - 199 mg/dL Comment:Testing performed by : [address] [address] Blood 08/16/2023 4:57 PM CDT 08/16/2023 4:57 PM CDT Teressa Mendes MD LAB POCT ORDERABLES - DEVICE Final Result Performing Organization Address [facility] Co de Phone Number [address] [email or web address] [address] * POCT glucose (08/16/2023 12:34 PM CDT) Glucose, POC 169 70 - 199 mg/dL Comment:Testing performed by : [address] [address] Blood 08/16/2023 12:3 4 PM CDT 08/16/2023 12:34 PM CDT us Teressa Mendes MD LAB POCT ORDERABLES - DEVICE Final Result Performing Organization Address [facility] de Phone Number [address] [address] * POCT glucose (08/16/2023 8:28 AM CDT) Glucose, POC 144 70 - 199 mg/dL Comment:Testing performed by : [address] [address] Blood 08/16/2023 8:28 AM CDT 08/16/2023 8:28 AM CDT us Teressa Mendes MD LAB POCT ORDERABLES - DEVICE Final Result Performing Organization Address [facility] Co de Phone Number MARY JANE [address] [facility] Department [place] [address] * eGFR (08/16/2023 4:48 AM CDT) eGFR [...] was last reviewed 2021. Testing performed by: [facility], [address] [place] [address]., [address] Blood 08/16/2023 4:48 AM CDT 08/16/2023 5:50 AM CDT us Philippe Mcguire MD LAB BLOOD ORDERABLES Final Result Performing Organization Address City/[facility] Co de Phone Number MARY JANE [address] [facility] Department [place] [address] * Differential, auto (08/16/2023 4:48 AM CDT) Neutrophil abs 3.7 1.5 - 6.5 K/cumm Comment:Testing performed by : [address] [address] Imm gran abs 0.0 0.0 - 0.1 K/cumm MARY JANE Comment:Testing performed by : [address] [address] Lymphocyte abs 2.4 0.8 - 3.3 K/cumm MARY JANE Comment:Testing performed by : [address] [address] Monocyte abs 0.6 0.2 - 0.8 K/cumm MARY JANE Comment:Testing performed by : [address] [address] Eosinophil abs 0.4 0.0 - 0.5 K/cumm MARY JANE Comment:Testing performed by : [address] [address] Basophil abs 0.0 0.0 - 0.1 K/cumm MARY JANE Comment:Testing performed by : [address] [address] Neutrophil pct 52.3 % MARY JANE Comment: Interpretive Data Percent cell count reference ranges are not reported, since discordance with absolute values may lead to misinterpretation of CBC data. Current Interpretive Data was last revised on 2017. Testing performed by: [address] [address] Imm gran pct 0.3 % MARY JANE Comment: Interpretive Data Percent cell count reference ranges are not reported, since discordance with absolute values may lead to misinterpretation of CBC data. Current Interpretive Data was last revised on 2017. Testing performed by: [address] [address] Lymphocyte pct 33.7 % MARY JANE Comment: Interpretive Data Percent cell count reference ranges are not reported, since discordance with absolute values may lead to misinterpretation of CBC data. Current Interpretive Data was last revised on 2017. Testing performed by: [address] [address] Monocyte pct 8.3 % MARY JANE Comment: Interpretive Data Percent cell count reference ranges are not reported, since discordance with absolute values may lead to misinterpretation of CBC data. Current Interpretive Data was last revised on 2017. Testing performed by: [address] [address] Eosinophil pct 5.1 % MARY JANE Comment: Interpretive Data Percent cell count reference ranges are not reported, since discordance with absolute values may lead to misinterpretation of CBC data. Current Interpretive Data was last revised on 2017. Testing performed by: [address] [address] Basophil pct 0.3 % MARY JANE Comment: Interpretive Data Percent cell count reference ranges are not reported, since discordance with absolute values may lead to misinterpretation of CBC data. Current Interpretive Data was last revised on 2017. Testing performed by: [address] [address] Blood 08/16/2023 4:48 AM CDT 08/16/2023 5:49 AM CDT us Philippe Mcguire MD LAB BLOOD ORDERABLES Final Result [facility] [address] [facility] Department [place] [address] * (ABNORMAL) CBC with auto differential (08/16/2023 4:48 AM CDT) WBC 7.1 3.8 - 9.9 K/cumm Comment:Testing performed by : [address] [address] Hgb 11.9 11.9 - 15.5 g/dL MARY JANE Comment:Testing performed by : [address] [address] Hct 38.1 35.6 - 45.5 % MARY JANE PHAM Comment:Testing performed by : [address] [address] Plt 236 150 - 400 K/cumm MARY JANE PHAM Comment:Testing performed by : [address] [address] MPV 9.9 9.1 - 12.3 fL MARY JANE PHAM Comment:Testing performed by : [address] [address] RBC 4.20 3.90 - 5.20 M/cumm MARY JANE Comment:Testing performed by : [address] [address] MCV 90.7 81.3 - 96.4 fL MARY JANE Comment:Testing performed by : [address] [address] MCH 28.3 27.1 - 33.3 pg MARY JANE Comment:Testing performed by : [address] [address] MCHC 31.2(L) 32.3 - 35.7 g/dL MARY JANE Comment:Testing performed by : [address] [address] RDW CV 13.4 11.1 - 14.9 % MARY JANE Comment:Testing performed by : [address] [address] RDW SD 44.4 35.7 - 48.1 fL MARY JANE Comment:Testing performed by : [address] [address] NRBC abs 0.00 0.00 - 0.01 K/cumm MARY JANE PHAM Comment:Testing performed by : [address] [address] Blood 08/16/2023 4:48 AM CDT 08/16/2023 5:49 AM CDT us Philippe Mcguire MD LAB BLOOD ORDERABLES Final Result MARY JANE [address] [facility] Department [place] [address] * (ABNORMAL) Basic metabolic panel (08/16/2023 4:48 AM CDT) Sodium 137 135 - 145 mmol/L Comment:Testing performed by : [address] [address] Potassium, pl 3.7 3.3 - 4.9 mmol/L MARY JANE Comment:Testing performed by : [address] [address] Chloride 102 97 - 110 mmol/L MARY JANE Comment:Testing performed by : [address] [address] CO2 26 22 - 32 mmol/L MARY JANE Comment:Testing performed by : [address] [address] Anion gap 9 2 - 15 mmol/L MARY JANE Comment:Testing performed by : [address] [address] BUN 8 6 - 25 mg/dL MARY JANE Comment:Testing performed by : [address] [address] Creatinine 0.50(L) 0.60 - 1.10 mg/dL MARY JANE Comment:Testing performed by : [address] [address] Glucose 137 70 - 199 mg/dL [facility] Comment: Interpretive Data Fasting glucose >/= 126 [...] was last revised 2022. Testing performed by: [address] [address] Calcium 8.6 8.5 - 10.3 mg/dL MARY JANE Comment:Testing performed by : [address] [place] [address] Blood 08/16/2023 4:48 AM CDT 08/16/2023 5:50 AM CDT Philippe Mcguire MD LAB BLOOD ORDERABLES Final Result Performing Organization Address [facility] Co de Phone Number MARY JANE [address] [email or web address] [address] * POCT glucose (08/15/2023 4:13 PM CDT) Glucose, POC 131 70 - 199 mg/dL Comment:Testing performed by : [address] [address] Blood 08/15/2023 4:13 PM CDT 08/15/2023 4:13 PM CDT Teressa Mendes MD LAB POCT ORDERABLES - DEVICE Final Result Performing Organization Address [facility] de Phone Number [address] [address] * POCT glucose (08/15/2023 11:52 AM CDT) Glucose, POC 182 70 - 199 mg/dL Comment:Testing performed by : [address] [address] Glucose comment 1 Use This Result MARY JANE Comment:Testing performed by : [address] [address] Blood 08/15/2023 11:5 2 AM CDT 08/15/2023 11:52 AM CDT Teressa Mendes MD LAB POCT ORDERABLES - DEVICE Final Result Performing Organization Address City/[facility] Co de Phone Number [address] [email or web address] [address] * POCT glucose (08/15/2023 9:12 AM CDT) [facility] Glucose, POC 179 70 - 199 mg/dL Comment:Testing performed by : [address] [address] Blood 08/15/2023 9:12 AM CDT 08/15/2023 9:12 AM CDT us Teressa Mendes MD LAB POCT ORDERABLES - DEVICE Final Result Performing Organization Address [facility] Co de Phone Number [address] [email or web address] [address] * (ABNORMAL) Magnesium (08/15/2023 5:38 AM CDT) [facility] Magnesium 1.3(L) 1.4 - 2.5 mg/dL Comment:Testing performed by : [address] [address] Blood 08/15/2023 5:38 AM CDT 08/15/2023 5:45 AM CDT us Teressa Mendes MD LAB BLOOD ORDERABLES Final Result Performing Organization Address [facility] de Phone Number [address] [email or web address] [address] * eGFR (08/15/2023 5:38 AM CDT) [facility] eGFR >90 >=60 mL/min/1. 73 m2 [...] was last reviewed 2021. Testing performed by: [address] [address] Blood 08/15/2023 5:38 AM CDT 08/15/2023 5:45 AM CDT us Philippe Mcguire MD LAB BLOOD ORDERABLES Final Result MARY JANE [address] [facility] Department [place] [address] * Differential, auto (08/15/2023 5:38 AM CDT) Neutrophil abs 4.0 1.5 - 6.5 K/cumm Comment:Testing performed by : [address] [address] Imm gran abs 0.0 0.0 - 0.1 K/cumm MARY JANE Comment:Testing performed by : [address] [address] Lymphocyte abs 2.1 0.8 - 3.3 K/cumm MARY JANE Comment:Testing performed by : [address] [address] Monocyte abs 0.5 0.2 - 0.8 K/cumm MARY JANE Comment:Testing performed by : [address] [place]., [address] Eosinophil abs 0.3 0.0 - 0.5 K/cumm [facility] Comment:Testing performed by : [address] [address] Basophil abs 0.0 0.0 - 0.1 K/cumm MARY JANE Comment:Testing performed by : [address] [address] Neutrophil pct 57.3 % [facility] Comment: Interpretive Data Percent cell count reference ranges are not reported, since discordance with absolute values may lead to misinterpretation of CBC data. Current Interpretive Data was last revised on 2017. Testing performed by: [address] [address] Imm gran pct 0.1 % [facility] Comment: Interpretive Data Percent cell count reference ranges are not reported, since discordance with absolute values may lead to misinterpretation of CBC data. Current Interpretive Data was last revised on 2017. Testing performed by: [address] [address] Lymphocyte pct 30.2 % [facility] Comment: Interpretive Data Percent cell count reference ranges are not reported, since discordance with absolute values may lead to misinterpretation of CBC data. Current Interpretive Data was last revised on 2017. Testing performed by: [address] [address] Monocyte pct 7.6 % [facility] Comment: Interpretive Data Percent cell count reference ranges are not reported, since discordance with absolute values may lead to misinterpretation of CBC data. Current Interpretive Data was last revised on 2017. Testing performed by: [address] [address] Eosinophil pct 4.4 % [facility] Comment: Interpretive Data Percent cell count reference ranges are not reported, since discordance with absolute values may lead to misinterpretation of CBC data. Current Interpretive Data was last revised on 2017. Testing performed by: [address] [address] Basophil pct 0.4 % [facility] Comment: Interpretive Data Percent cell count reference ranges are not reported, since discordance with absolute values may lead to misinterpretation of CBC data. Current Interpretive Data was last revised on 2017. Testing performed by: [address] [address] Blood 08/15/2023 5:38 AM CDT 08/15/2023 5:46 AM CDT Philippe Mcguire MD LAB BLOOD ORDERABLES Final Result MARY JANE [address] [facility] Department [place] [address] * (ABNORMAL) CBC with auto differential (08/15/2023 5:38 AM CDT) WBC 7.0 3.8 - 9.9 K/cumm Comment:Testing performed by : [address] [address] Hgb 11.7(L) 11.9 - 15.5 g/dL MARY JANE Comment:Testing performed by : [address] [address] Hct 36.9 35.6 - 45.5 % MARY JANE Comment:Testing performed by : [address] [address] Plt 215 150 - 400 K/cumm MARY JANE Comment:Testing performed by : [address] [address] MPV 9.4 9.1 - 12.3 fL MARY JANE Comment:Testing performed by : [address] [address] RBC 4.05 3.90 - 5.20 M/cumm MARY JANE PHAM Comment:Testing performed by : [address] [address] MCV 91.1 81.3 - 96.4 fL MARY JANE Comment:Testing performed by : [address] [address] MCH 28.9 27.1 - 33.3 pg MARY JANE PHAM Comment:Testing performed by : [address] [address] MCHC 31.7(L) 32.3 - 35.7 g/dL MARY JANE PHAM Comment:Testing performed by : [address] [address] RDW CV 13.5 11.1 - 14.9 % MARY JANE PHAM Comment:Testing performed by : [address] [address] RDW SD 45.1 35.7 - 48.1 fL MARY JANE PHAM Comment:Testing performed by : [address] [address] NRBC abs 0.00 0.00 - 0.01 K/cumm MARY JANE PHAM Comment:Testing performed by : [address] [address] Blood 08/15/2023 5:38 AM CDT 08/15/2023 5:46 AM CDT Philippe Mcguire MD LAB BLOOD ORDERABLES Final Result [facility] [address] [facility] Department of Laboratories [place], [place] [address] * (ABNORMAL) Basic metabolic panel (08/15/2023 5:38 AM CDT) Sodium 140 135 - 145 mmol/L Comment:Testing performed by : [address] [address] Potassium, pl 3.6 3.3 - 4.9 mmol/L MARY JANE PHAM Comment:Testing performed by : [address] [address] Chloride 105 97 - 110 mmol/L MARY JANE PHAM Comment:Testing performed by : [address] [address] CO2 26 22 - 32 mmol/L MARY JANE PHAM Comment:Testing performed by : [address] [address] Anion gap 9 2 - 15 mmol/L MARY JANE PHAM Comment:Testing performed by : [address] [place]., [address] BUN 11 6 - 25 mg/dL MARY JANE Comment:Testing performed by : [facility], [address] [place] [address]., [address] Creatinine 0.50(L) 0.60 - 1.10 mg/dL MARY JANE Comment:Testing performed by : [facility], [address] [place] [address]., [address] Glucose 157 70 - 199 mg/dL MARY [...] was last revised 2022. Testing performed by: [facility], [address] [place] [address]., [address] Calcium 8.3(L) 8.5 - 10.3 mg/dL MARY JANE Comment:Testing performed by : [address] [address] Blood 08/15/2023 5:38 AM CDT 08/15/2023 5:45 AM CDT Philippe Mcguire MD LAB BLOOD ORDERABLES Final Result MARY JANE [address] [facility] Department [place] [address] * Blood culture Blood (08/15/2023 5:38 AM CDT) Report Final Report: No growth Comment:Testing performed by : [facility], [address] [facility], [place]., [address] Blood 08/15/2023 5:38 AM CDT 08/15/2023 4:01 [...] organism identification may be performed using the [employer]sm Gram-Positive Blood Culture Assay. This assay detects microbial DNA in positive blood culture broth via hybridization of target DNA to capture oligonucleotides on a microarray. This assay has been cleared by the [place] Food and Drug Administration and its performance characteristics have been verified by the [facility] Microbiology Laboratory. 5. ?For questions about this culture, contact the Microbiology Laboratory at [phone]. Interpretive data was last revised on 2019. Philippe Mcguire MD LAB MICROBIOLOGY - [facility] ORDERABLES Final Result MARY JANE [address] [facility] Department [place] [address] * Blood culture Blood (08/14/2023 8:47 PM CDT) Report Final Report: No growth Comment:Testing performed by : [facility], [address] [facility], [place]., [address] Blood 08/14/2023 8:47 PM CDT 08/14/2023 11:35 [...] organism identification may be performed using the [employer] Gram-Positive Blood Culture Assay. This assay detects microbial DNA in positive blood culture broth via hybridization of target DNA to capture oligonucleotides on a microarray. This assay has been cleared by the [place] Food and Drug Administration and its performance characteristics have been verified by the [facility] Microbiology Laboratory. 5. ?For questions about this culture, contact the Microbiology Laboratory at [phone]. Interpretive data was last revised on 2019. Philippe Mcguire MD LAB MICROBIOLOGY - G ENERAL ORDERABLES Final Result MARY JANE [address] [facility] Department [place] [address] * Thyroid Function [place] (08/14/2023 8:47 PM CDT) [facility] TSH 2.71 0.30 - 4.20 mcIUnit/mL Comment:Testing performed by : [facility], [address] [place] [address]., [address] Blood 08/14/2023 8:47 PM CDT 08/14/2023 8:52 PM CDT Philippe Mcguire MD LAB BLOOD ORDERABLES Final Result Performing Organization Address [facility] Co de Phone Number MARY JANE [facility] [place] [address] * (ABNORMAL) Hemoglobin A1c (08/14/2023 8:47 PM CDT) [facility] Hgb A1C 8.4(H) 4.0 - 5.6 % Comment:Testing performed by : [address] [address] Estimated Average Glucose 194 mg/dL [facility] Comment: The ADA recommends reporting an estimated Average Glucose (eAG) with all Hemoglobin A1c results using the equation derived from a study of 507 normal and diabetic adults. ??Minority populations were underrepresented and children were not included. ?? (Diabetes Care 31:3058-1687, 2008). ??The eAG is not equivalent to a fasting glucose. Testing performed by: [address] [address] Blood 08/14/2023 8:47 PM CDT 08/14/2023 8:52 PM CDT Philippe Mcguire MD LAB BLOOD ORDERABLES Final Result Performing Organization Address [facility] de Phone Number MARY JANE [address] [place] [address] * aPTT (08/14/2023 8:47 PM CDT) [facility] aPTT 29 22 - 37 sec Comment: Interpretive data aPTT test has not been evaluated for monitoring heparin therapy. The anti-Xa is the preferred test. Current interpretive data was last revised on 2019. Testing performed by: [address] [address] Blood 08/14/2023 8:47 PM CDT 08/14/2023 8:53 PM CDT Philippe Mcguire MD LAB BLOOD ORDERABLES Final Result Performing Organization Address City/[facility]/ZIP Co de Phone Number MARY JANE [address] [address] * Protime-INR (08/14/2023 8:47 PM CDT) PT 14.1 12.0 - 14.6 sec Comment:Testing performed by : [address] [address] INR 1.1 0.9 - 1.2 MARY JANE Comment: Ref Range High Interpretive data Oral anticoagulant therapeutic ranges: Venous thromboembolism prophylaxis or treatment: 2.0-3.0 CARDIOLOGY Standard range: 2.0-3.0 High-intensity range: 2.5-3.5 Refer to indication-specific guidelines for appropriate target ranges for prosthetic heart valve replacement. Current interpretive data was last revised on 2019. Testing performed by: [address] [address] Blood 08/14/2023 8:47 PM CDT 08/14/2023 8:53 PM CDT Philippe Mcguire MD LAB BLOOD ORDERABLES Final Result Performing Organization Address [facility] Co de Phone Number [address] [address] * Vitamin B12 (08/14/2023 8:47 PM CDT) Pathologist [facility] Vitamin B12 393 230 - 1,250 pg/mL Comment:Testing performed by : [address] [address] Blood 08/14/2023 8:47 PM CDT 08/14/2023 8:53 PM CDT us Philippe Mcguire MD LAB BLOOD ORDERABLES Final Result Performing Organization Address City/[facility]/ZIP Co de Phone Number [address] [address] * Iron profile w/ IBC (08/14/2023 8:47 PM CDT) Iron 71 35 - 145 mcg/dL Comment:Testing performed by : [address] [address] TIBC 303 250 - 400 mcg/dL MARY JANE Comment:Testing performed by : [address] [address] Transferrin saturation 23 20 - 50 % MARY JANE Comment:Testing performed by : [address] [address] Blood 08/14/2023 8:47 PM CDT 08/14/2023 8:52 PM CDT Philippe Mcguire MD LAB BLOOD ORDERABLES Final Result Performing Organization Address [facility] de Phone Number [address] [email or web address] [address] * Ferritin (08/14/2023 8:47 PM CDT) Pathologist [facility] Ferritin 52 15 - 150 ng/mL Comment:Testing performed by : [address] [address] Blood 08/14/2023 8:47 PM CDT 08/14/2023 8:52 PM CDT Philippe Mcguire MD LAB BLOOD ORDERABLES Final Result Performing Organization Address [facility] de Phone Number [address] [email or web address] [address] * Lipid panel (08/14/2023 8:47 PM CDT) Pathologist [facility] Cholesterol 176 30 - 199 mg/dL Comment: [...] last revised on 2017. Testing performed by: [address] [address] Triglycerides 121 <=149 mg/dL MARY JANE Comment: [...] last revised on 2017. Testing performed by: [address] [address] HDL 44 >=40 mg/dL MARY JANE Comment: [...] last revised on 2017. Testing performed by: [address] [address] LDL, calculated 108 <=129 mg/dL MARY JANE [...] last revised on 2017. Testing performed by: [address] [address] Non-HDL Cholesterol 132 mg/dL MARY JANE Comment: [...] last revised on 2017. Testing performed by: [address] [address] Chol/HDL ratio 4 [facility] Comment:Testing performed by : [address] [address] Blood 08/14/2023 8:47 PM CDT 08/14/2023 8:52 PM CDT Philippe Mcguire MD LAB BLOOD ORDERABLES Final Result [address] [email or web address] [address] * (ABNORMAL) CRP (acute phase) (08/14/2023 8:47 PM CDT) Pathologist [facility] CRP 15.5(H) <=10.0 mg/L Comment:Testing performed by : [address] [address] Blood 08/14/2023 8:47 PM CDT 08/14/2023 8:52 PM CDT Philippe Mcguire MD LAB BLOOD ORDERABLES Final Result Performing Organization Address [facility] Co de Phone Number [address] [email or web address] [address] * (ABNORMAL) Erythrocyte sedimentation rate (08/14/2023 8:47 PM CDT) Pathologist [facility] Erythrocyte sedimentation rate 55(H) 1 - 30 mm/hr Comment:Testing performed by : [address] [address] Blood 08/14/2023 8:47 PM CDT 08/14/2023 8:52 PM CDT us Philippe Mcguire MD LAB BLOOD ORDERABLES Final Result [address] [email or web address] [address] * Lactate (08/14/2023 8:47 PM CDT) Pathologist [facility] Lactate 1.1 0.7 - 2.0 mmol/L Comment:Testing performed by : [address] [address] Blood 08/14/2023 8:47 PM CDT 08/14/2023 8:53 PM CDT us Philippe Mcguire MD LAB BLOOD ORDERABLES Final Result [address] [address] * Phosphorus (08/14/2023 8:47 PM CDT) [facility] Phosphorus, pl 3.0 2.3 - 4.5 mg/dL Comment:Testing performed by : [address] [address] Blood 08/14/2023 8:47 PM CDT 08/14/2023 8:52 PM CDT us Philippe Mcguire MD LAB BLOOD ORDERABLES Final Result Performing Organization Address City/[facility]/ZIP Co de Phone Number [address] [address] * (ABNORMAL) Magnesium (08/14/2023 8:47 PM CDT) [facility] Magnesium 1.3(L) 1.4 - 2.5 mg/dL Comment:Testing performed by : [address] [address] Blood 08/14/2023 8:47 PM CDT 08/14/2023 8:52 PM CDT us Philippe Mcguire MD LAB BLOOD ORDERABLES Final Result [address] [address] * POCT glucose (08/14/2023 8:28 PM CDT) Glucose, POC 143 70 - 199 mg/dL Comment:Testing performed by : [address] [address] Glucose comment 1 Use This Result MARY JANE Comment:Testing performed by : [address] [address] Glucose comment 2 RN/MD Notified MARY JANE Comment:Testing performed by : [address] [address] Blood 08/14/2023 8:28 PM CDT 08/14/2023 8:28 PM CDT us Philippe Mcguire MD LAB POCT ORDERABLES - DEVICE Final Result [address] [address] * Sepsis Lactate w/ Reflex (08/14/2023 5:49 PM CDT) [facility] Sepsis Lactate 1.2 0.7 - 2.0 mmol/L Comment:Testing performed by : [address] [address] Blood 08/14/2023 5:49 PM CDT 08/14/2023 5:59 PM CDT us Yesi MCKEON LAB BLOOD ORDERABLES Final Result [address] [address] * POCT glucose (08/14/2023 5:37 PM CDT) [facility] Glucose, POC 181 70 - 199 mg/dL Comment:Testing performed by : [address] [address] Blood 08/14/2023 5:37 PM CDT 08/14/2023 5:37 PM CDT us Notinfile Unknown LAB POCT ORDERABLES - DEVICE F inal Result MARY JANE [address] [facility] Department [place] [address] * XR Chest 1 Vw Portable (08/14/2023 [...] PM T: ??08/14/2023 4:09 PM Report ID: [id number] Reading Location: ??[id number] Procedure Note Ryan Partida MD - 08/14/2023 [...] Ryan Partida M.D. RB: LALA Report ID: [id number] Reading Location: [place] [address] Yesi MCKEON IMG XR PROCEDURES Final Re [...] PM T: ??08/14/2023 2:29 PM Report ID: [id number] Reading Location: ??[id number] Procedure Note David Carlton MD - 08/14/2023 [...] by David Carlton M.D. JR: Report ID: [id number] Reading Location: [place] [address] PROCEDURES Final Re sult * (ABNORMAL) Urine culture Urine (08/14/2023 12:30 PM CDT) Report Final Report: Greater than or equal to 100,000 colonies/mL of Escherichia coli Plus growth of clinically insignificant bacterial yesenia. (.) Comment:Testing performed by : [facility], [address] [place]., [address] Organism ESCHERICHIA COLI MARY JANE Organism PLUS GROWTH OF CLINICALLY INSIGNIFICANT YESENIA. MARY JANE Urine 08/14/2023 12:3 0 PM CDT 08/14/2023 4:01 PM CDT Narrative [facility] - 08/16/2023 10:12 AM CDT Urine culture reflexed based upon urinalysis results. Testing performed by [facility] Microbiology Laboratory ([phone]) Organism Antibiotic Method Susceptibility Escherichia coli Ampicillin [...] ORDE REGAN Final Result MARY JANE [address] [facility] Department [place] [address] * (ABNORMAL) Urinalysis, microscopic only (08/14/2023 12:30 PM CDT) WBC, ur 21-50(A) 0 - 5 /HPF Comment:Testing performed by : [address] [address] RBC, ur 0-2 0 - 2 /HPF MARY JANE Comment:Testing performed by : [address] [address] Epithelial cells, squamous, ur 11-20(A) 0 - 5 /HPF MARY JANE Comment:Testing performed by : [address] [address] Bacteria, ur Trace(A) MARY JANE Comment:Testing performed by : [address] [address] Mucous, ur Present(A) MARY JANE Comment:Testing performed by : [address] [address] Hyaline casts, ur 1-5 0 - 10 /LPF MARY JANE Comment:Testing performed by : [address] [address] Culture Reflex Comment Reflex to urine culture will be performed. MARY JANE Comment:Testing performed by : [address] [address] Urine 08/14/2023 12:3 0 PM CDT 08/14/2023 12:37 PM CDT us Philippe Mcguire MD LAB URINE ORDERABLES Final Result Performing Organization Address City/[facility]/ZIP Co de Phone Number MARY JANE [address] [facility] Department [place] [address] * (ABNORMAL) Urinalysis reflex to microscopic and culture Urine (08/14/2023 12:30 PM CDT) Color, ur Yellow Yellow Comment:Testing performed by : [address] [address] Clarity, ur Clear Clear MARY JANE Comment:Testing performed by : [address] [address] Specific gravity, ur 1.019 1.003 - 1.030 MARY JANE Comment:Testing performed by : [address] [address] pH, urine 5.5 MARY JANE Comment: Interpretive Data ? Urine pH is affected by diet, medications, systemic acid-base disturbances, and renal tubular function. ??pH may affect urinary stone formation. ??For example, urine pH below 6.0 may help reduce the tendency for calcium phosphate stones and pH greater than 6.0 may reduce the tendency for uric acid stone formation. Source: [facility] [employer] Current Interpretive Data was last revised on 2017 Testing performed by: [address] [address] Protein, ur ql Negative Negative MARY JANE Comment:Testing performed by : [address] [address] Glucose, ur ql 3+(A) Negative MARY JANE Comment:Testing performed by : [address] [address] Ketones, ur Negative Negative MARY JANE Comment:Testing performed by : [address] [address] Bilirubin, ur Negative Negative MARY JANE Comment:Testing performed by : [address] [address] Blood, ur Trace(A) Negative MARY JANE Comment:Testing performed by : [address] [address] Urobilinogen, ur <2.0 <2.0 mg/dL MARY JANE Comment:Testing performed by : [address] [address] Nitrite, ur Negative Negative MARY JANE Comment:Testing performed by : [facility], [address] [place] [address]., [address] Leukocyte esterase, ur 2+(A) Negative MARY JANE PHAM Comment:Testing performed by : [address] [address] UA reflex comment Reflex to microscopic UA will be performed. MARY JANE PHAM Comment:Testing performed by : [facility], [address] [place] [address]., [address] Urine 08/14/2023 12:3 0 PM CDT 08/14/2023 12:37 PM CDT us Philippe Mcguire MD LAB MICROBIOLOGY - G ENERAL ORDERABLES Final Result MARY JANE PHAM [address] [facility] Department [place] [address] * eGFR (08/14/2023 12:20 PM CDT) eGFR [...] was last reviewed 2021. Testing performed by: [address] [address] Blood 08/14/2023 12:2 0 PM CDT 08/14/2023 12:44 PM CDT Philippe Mcguire MD LAB BLOOD ORDERABLES Final Result MARY JANE [address] [facility] Department [place] [address] * Differential, auto (08/14/2023 12:20 PM CDT) Neutrophil abs 5.2 1.5 - 6.5 K/cumm Comment:Testing performed by : [address] [address] Imm gran abs 0.0 0.0 - 0.1 K/cumm MARY JANE Comment:Testing performed by : [address] [address] Lymphocyte abs 2.2 0.8 - 3.3 K/cumm MARY JANE Comment:Testing performed by : [address] [address] Monocyte abs 0.6 0.2 - 0.8 K/cumm MARY JANE Comment:Testing performed by : [address] [address] Eosinophil abs 0.3 0.0 - 0.5 K/cumm MARY JANE Comment:Testing performed by : [address] [address] Basophil abs 0.0 0.0 - 0.1 K/cumm MARY JANE Comment:Testing performed by : [address] [address] Neutrophil pct 62.2 % MARY JANE Comment: Interpretive Data Percent cell count reference ranges are not reported, since discordance with absolute values may lead to misinterpretation of CBC data. Current Interpretive Data was last revised on 2017. Testing performed by: [address] [address] Imm gran pct 0.5 % MARY JANE Comment: Interpretive Data Percent cell count reference ranges are not reported, since discordance with absolute values may lead to misinterpretation of CBC data. Current Interpretive Data was last revised on 2017. Testing performed by: [address] [address] Lymphocyte pct 26.4 % [facility] Comment: Interpretive Data Percent cell count reference ranges are not reported, since discordance with absolute values may lead to misinterpretation of CBC data. Current Interpretive Data was last revised on 2017. Testing performed by: [address] [address] Monocyte pct 7.0 % [facility] Comment: Interpretive Data Percent cell count reference ranges are not reported, since discordance with absolute values may lead to misinterpretation of CBC data. Current Interpretive Data was last revised on 2017. Testing performed by: [address] [address] Eosinophil pct 3.5 % MARY JANE Comment: Interpretive Data Percent cell count reference ranges are not reported, since discordance with absolute values may lead to misinterpretation of CBC data. Current Interpretive Data was last revised on 2017. Testing performed by: [address] [address] Basophil pct 0.4 % MARY JANE Comment: Interpretive Data Percent cell count reference ranges are not reported, since discordance with absolute values may lead to misinterpretation of CBC data. Current Interpretive Data was last revised on 2017. Testing performed by: [address] [address] Blood 08/14/2023 12:2 0 PM CDT 08/14/2023 12:44 PM CDT us Philippe Mcguire MD LAB BLOOD ORDERABLES Final Result MARY JANE [address] [facility] Department [place] [address] * Lipase (08/14/2023 12:20 PM CDT) Lipase 20 10 - 99 Units/L Comment:Testing performed by : [address] [address] Blood (Blood, Venous) 08/14/2023 12:20 PM CDT 08/14/2023 12:44 PM CDT Philippe Mcguire MD LAB BLOOD ORDERABLES Final Result [place] [address]00 [facility] Department [place] [address] * (ABNORMAL) Comprehensive metabolic panel (08/14/2023 12:20 PM CDT) Pathologist [facility] Sodium 137 135 - 145 mmol/L Comment:Testing performed by : [address] [address] Potassium, pl 4.2 3.3 - 4.9 mmol/L MARY JANE Comment:Testing performed by : [address] [address] Chloride 99 97 - 110 mmol/L MARY JANE Comment:Testing performed by : [address] [address] CO2 26 22 - 32 mmol/L MARY JANE Comment:Testing performed by : [address] [address] Anion gap 12 2 - 15 mmol/L MARY JANE Comment:Testing performed by : [address] [address] BUN 13 6 - 25 mg/dL MARY JANE Comment:Testing performed by : [address] [address] Creatinine 0.60 0.60 - 1.10 mg/dL MARY JANE Comment:Testing performed by : [address] [address] Glucose 290(H) 70 - 199 mg/dL MARY [...] was last revised 2022. Testing performed by: [address] [address] Calcium 10.1 8.5 - 10.3 mg/dL MARY JANE Comment:Testing performed by : [address] [address] Bilirubin, total 0.7 0.1 - 1.2 mg/dL MARY JANE Comment:Testing performed by : [address] [address] Protein, pl 8.7(H) 6.5 - 8.5 g/dL MARY JANE Comment:Testing performed by : [address] [address] Albumin 4.1 3.5 - 5.0 g/dL [facility] Comment:Testing performed by : [address] [address] Alk phos 86 40 - 130 Units/L MARY JANE Comment:Testing performed by : [address] [address] ALT 23 7 - 45 Units/L [facility] Comment:Testing performed by : [address] [address] AST 21 10 - 45 Units/L [facility] Comment: HEMOLYZED: Hemolysis interferes with the above test. Testing performed by: [address] [address] Blood 08/14/2023 12:2 0 PM CDT 08/14/2023 12:44 PM CDT us Philippe Mcguire MD LAB BLOOD ORDERABLES Final Result MARY JANE [address] [facility] Department [place] [address] * CBC with auto differential (08/14/2023 12:20 PM CDT) WBC 8.3 3.8 - 9.9 K/cumm Comment:Testing performed by : [address] [address] Hgb 14.1 11.9 - 15.5 g/dL MARY JANE Comment:Testing performed by : [address] [address] Hct 43.3 35.6 - 45.5 % MARY JANE Comment:Testing performed by : [address] [address] Plt 277 150 - 400 K/cumm MARY JANE Comment:Testing performed by : [address] [address] MPV 9.9 9.1 - 12.3 fL MARY JANE Comment:Testing performed by : [address] [address] RBC 4.94 3.90 - 5.20 M/cumm MARY JANE Comment:Testing performed by : [address] [address] MCV 87.7 81.3 - 96.4 fL MARY JANE Comment:Testing performed by : [address] [address] MCH 28.5 27.1 - 33.3 pg MARY JANE Comment:Testing performed by : [address] [address] MCHC 32.6 32.3 - 35.7 g/dL MARY JANE Comment:Testing performed by : [address] [address] RDW CV 13.4 11.1 - 14.9 % MARY JANE Comment:Testing performed by : [address] [address] RDW SD 42.9 35.7 - 48.1 fL MARY JANE Comment:Testing performed by : [address] [place] [address] NRBC abs 0.00 0.00 - 0.01 K/cumm MARY JANE PHAM Comment:Testing performed by : [facility], [address] [place] [address]., [address] Blood (Blood, Venous) 08/14/2023 12:20 PM CDT 08/14/2023 12:44 PM CDT Philippe Mcguire MD LAB BLOOD ORDERABLES Final Result MARY JANE PHAM [address] [facility] Department [place] [address] documented in this encounter Visit Diagnoses Diagnosis Abdominal pain- Primary Abdominal pain, unspecified site Abdominal pain Abdominal pain, unspecified site Nausea and vomiting, unspecified vomiting type Allergy to drug Other drug allergy Type 2 diabetes mellitus without complication, with long-term current use of insulin ([facility]) (HCC) Diabetic gastroparesis (CMS/HCC) (HCC) Type II [...] Call MD for each episode of hypoglycemia. X RAY TECH STATES GLUTOSE-15 CONTAINS GLUCOSE 40% W/W (50% [...] Call MD for each episode of hypoglycemia. X RAY TECH STATES GLUTOSE-15 CONTAINS GLUCOSE 40% W/W (50% [...] at 1800 0823 (Given - Provider: Freda Green RN)1851 (Given - Provider: Freda Green RN) [...] Call MD for each episode of hypoglycemia. X RAY TECH STATES GLUTOSE-15 CONTAINS GLUCOSE 40% W/W (50% [...] 08/18/2023 documented in this encounter Care Teams Powder Guard Relationship Specialty Start Date End Date Justen Gale MD [address] [place] [id number] PCP - General 10/09/17 Liu Jerez MD Consulting Physician Gastroenterology 07/28/17 [place] [address] [address] [facility] [address] [place] [address] Consulting Physician Pulmonary Disease 08/03/17 Khris Arthur MD [address] [facility] [address] [place] [address] Medical Oncologist/Appliance Servicer Medical Oncology 10/23/17 [place] [address] [facility] [address] [place] [address] Surgeon Orthopedic Surgery 10/23/17 [place] [address] [facility] [address] [place] [address] Consulting Physician Pain Management 10/23/17 [place] [address] [facility] [address] [place] [address] Referring Physician General Surgery 01/26/18 [place] [address] [facility] [address] [place] [address] Consulting Physician Neurology 01/26/18 documented as of this encounter
--- OUTSIDE RECORDS SUMMARY | 2024-04-26 09:14 | XMS_ITS | Encounter Summary ---
Author Organization [facility] Address [address] [place] [address] Phone Care Team Providers Care Offset Plate Maker Name Role Phone Liu Jerez MD Unavailable Albert Corbin MD Unavailable Jsuten Gale MD Primary Care Provider Khris rAthur MD Unavailable [phone] Ko Melendez MD Unavailable John Paul Moyer MD Unavailable Annel Rod MD Unavailable Anali MARSHALL MD, Carlos M. Unavailable Encounter Details Date Type Department Care Team (Late st Contact Info) Description 09/13/2023 Orders Only [facility] Oncology [address] [place] [address] Radha Mcgrath RN Social History Tobacco Use Types Packs/Day Years Used Date Smoking Tobacco: Former Smokeless Tobacco: Never Comments:remote tobacco use Alcohol Use Standard Drinks/Week Comments No 0 (1 standard drink = 0.6 oz pur e alcohol) [facility] Utilities Answer Date Recorded In the past [...] often do you attend chur ch or jainism services? 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 Gender Identity Not on file Sexual Orientation Not on file documented as of this encounter Plan of Treatment Not on file documented as of this encounter Visit Diagnoses Not on filedocumented in this encounter Care Teams Offset Plate Maker Relationship Specialty Start Date End Date Justen Gale MD 2 [facility] [address] [place] [address] PCP - General 10/09/17 Liu Jerez MD Consulting Physician Gastroenterology 07/28/17 [place] [address] [facility] [address] [place] [address] Consulting Physician Pulmonary Disease 08/03/17 [place] [address] [place] [address] [address] [place], [place] [id number] Medical Oncologist/Recessing Machine Operator Medical Oncology 10/23/17 [place] [address] [address] Surgeon Orthopedic Surgery 10/23/17 [place] [address] [address] Consulting Physician Pain Management 10/23/17 [place] [address] [address] Referring Physician General Surgery 01/26/18 [place] [address] [address] [facility] [address] [place] [address] Consulting Physician Neurology 01/26/18 documented as of this encounter
--- OUTSIDE RECORDS SUMMARY | 2024-04-26 09:15 | XMS_ITS | Encounter Summary ---
Author Organization [facility] Address [address] [place] [address] Phone Care Team Providers Care Operations Associate Name Role Phone Liu Jerez MD Unavailable Albert Corbin MD Unavailable Justen Gale MD Primary Care Provider Khris Arthur MD Unavailable [phone] Ko Melendez MD Unavailable John Paul Moyer MD Unavailable Annel Rod MD Unavailable Aanli MARSHALL MD, Carlos M. Unavailable Reason for Visit * Reason Comments Osteoporosis * Diagnostic Imaging (Routine) - Closed Specialty Diagnoses / Procedures Referred By Contac t Referred To Contact Diagnoses Malignant neoplasm of upper-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, unspecified estrogen receptor status (HCC) Procedures Dexa Axial Skeleton Bone Density 1 or 2 Site Khris Arthur MD [address] [facility] [address] [place] [address] Phone: tel: fax: [facility] (All Locations) Referral ID Status Reason Start Date Expiration Date Visits Re quested Visits Authorized [id number] Closed 09/07/2021 10/07/2022 1 1 Encounter Details Date Type Department Care Team (Latest Contact Info) Description 08/02/2022 10:30 AM CDT Clinical Support [facility] Bone Health [address] [facility] 5th [place] [address] [place] [address] Malignant neoplasm of upper-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, unspecified estrogen receptor status (HCC); Postmenopausal; Osteoporosis, unspecified osteoporosis type, unspecified pathological fracture presence; shelter (current) use 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 inhibitors; 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 Never 02/11/2022 Do you [...] slept in a custodial (including now)? 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 Female 12:24 AM ASSISTANCE SPECIALIST Gender Identity Not on file Sexual [...] Bone mineral density was performed on a Holo9DIAMOND Discovery Densitometer. ?? Based on machine cross-calibration [...] by the International Society of Clinical Densitometry. 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) use 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 inhibitors buttermaker helper (current) use of anticoagulants Long-term (current) use of anticoagulants documented in this encounter Care Teams Operations Associate Relationship Specialty Start Date End Date Justen Gale MD [address] [address] PCP - General 10/09/17 Liu Jerez MD Consulting Physician Gastroenterology 07/28/17 [place] [address] [address] [facility] [address] [place] [address] Consulting Physician Pulmonary Disease 08/03/17 Khris Arthur MD [address] [facility] [address] [place] [address] Medical Oncologist/Remote Sensing Advisor Medical Oncology 10/23/17 [place] [address] [facility] [address] [place] [address] Surgeon Orthopedic Surgery 10/23/17 [place] [address] [address] Consulting Physician Pain Management 10/23/17 [place] [address] [address] Referring Physician General Surgery 01/26/18 [place] [address] [facility] [address] [place] [address] Consulting Physician Neurology 01/26/18 documented as of this encounter
--- OUTSIDE RECORDS SUMMARY | 2024-04-26 09:15 | XMS_ITS | Encounter Summary ---
Author Organization [facility] Address [address] [place] [address] Phone Care Team Providers Care Senior Accounting Manager Name Role Phone Liu Jerez MD Unavailable Albert Corbni MD Unavailable [phone] Justen Gale MD Primary Care Provider Khris Arthur MD Unavailable [phone] Ko Melendez MD Unavailable [phone] John Paul Moyer MD Unavailable Annel Rod MD Unavailable Anali MARSHALL MD, Carlos M. Unavailable [phone] Encounter Details Date Type Department Care Team (Late st Contact Info) Description 08/08/2022 Orders Only [facility] Oncology [address] [facility] Medicine 7th [place] [address] [place] [address] Radha Mcgrath RN Social History [...] often do you attend chur ch or pentecostal services? 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 Gender Identity Not on file Sexual Orientation Not on file documented as of this encounter Plan of Treatment Not on file documented as of this encounter Visit Diagnoses Not on filedocumented in this encounter Care Teams Senior Accounting Manager Relationship Specialty Start Date End Date Justen Gale MD [address] [address] PCP - General 10/09/17 Liu Jerez MD Consulting Physician Gastroenterology 07/28/17 [place] [address] [address] [facility] [address] [place] [address] Consulting Physician Pulmonary Disease 08/03/17 Khris Arthur MD 49[address] [facility] [address] [place] [address] Medical Oncologist/Shaker Out Medical Oncology 10/23/17 [place] [address] [address] [facility] [address] [place] [address] Surgeon Orthopedic Surgery 10/23/17 [place] [address] [address] [facility] [address] [place] [address] Consulting Physician Pain Management 10/23/17 [place] [address] [facility] [address] [place] [address] Referring Physician General Surgery 01/26/18 [place] [address] [address] [facility] [address] [place] [address] Consulting Physician Neurology 01/26/18 documented as of this encounter
--- OUTSIDE RECORDS SUMMARY | 2024-04-26 09:15 | XMS_ITS | Encounter Summary ---
Author Organization [facility] Healthcare Address [address] [place] [address] Care Team Providers Care Computer Forensics Examiner Name Role Phone Liu Jerez MD Unavailable Albert Corbin MD Unavailable Justen Gale MD Primary Care Provider Khris Arthur MD Unavailable [phone] Ko Melendez MD Unavailable John Paul Moyer MD Unavailable Annel Rod MD Unavailable Anali MARSHALL MD, Carlos M. Unavailable [phone] Reason for Visit * Reason Comments Shortness of Breath Hyperglycemia Encounter Details Date Type Department Care Team (Late st Contact Info) Description 05/11/2023 12:48 PM VIDEO TECHNICIAN - 05/11/2023 2:29 PM VIDEO TECHNICIAN Emergency [facility] Emergency Department [address] [place] [id number] Discharge Disposition: Left without being seen Social [...] often do you attend chur ch or faith services? Never 02/11/2022 Do you belong to any clubs o r organizations such as jain groups, unions, fraternal or athletic groups, or [...] [place] [facility] [place] (including now)? No 02/11/2022 Personal Safety Answer Date Recorded Have you ever been in or are you currently in a harmful physical or emotional relationship or is someone making you feel afraid or unsafe? Denies 05/11/2023 Comments No Sex and Gender Information Value Date Recorded Sex Assigned at Not on file Legal Sex Female 12:24 AM VIDEO TECHNICIAN Gender Identity Not on file Sexual Orientation Not on file documented as of this encounter Last Filed Vital Signs Vital Sign Reading Time Taken Comments Blood Pressure 145/85 05/11/2023 12:57 PM VIDEO TECHNICIAN Pulse 73 05/11/2023 12:57 PM VIDEO TECHNICIAN Temperature 37 ??C (98.6 ??F) 05/11/2023 1:28 PM VIDEO TECHNICIAN Respiratory Rate 18 05/11/2023 12:57 PM VIDEO TECHNICIAN Oxygen Saturation 95% 05/11/2023 12:57 PM VIDEO TECHNICIAN Inhaled Oxygen Concentration - - Weight - [...] TIMES DAILY DIRECTED 06/24/2021 blood glucose diagnostic (Quwan.comTouch Ultra Test) strip 4 (four) times a [...] visiting and staying with her grandchild at [facility]. Today she had someone bring her the prescribed amoxicillin. Pt also states she had blood cultures drawn at that time and was called a few days after and was told her blood cultures were +. No new antibiotic as prescribed at that time. Pt states she feels SOB and fatigued. O TECHNICIAN documented in this encounter Miscellaneous Notes * ED Pre-Arrival Note - Magda Liu RN - 05/11/2023 11:45 AM VIDEO TECHNICIAN Pre-Arrival Note Transfer from [facility], pt seeing family at [facility], became light headed and SOB, initiating workup and then tx to ED. Dr. Zamora from [facility]. Accepted by Dr. Aj. Magda Liu RN O TECHNICIAN documented in this encounter Plan of Treatment Not on file documented as of this encounter Procedures Procedure Name Priority Date/Time Associated Diagnosis Comments POCT GLUCOSE DEVICE Routine 05/11/2023 1 2:53 PM VIDEO TECHNICIAN POCT KETONE, BLOOD Routine 05/11/2023 12 :53 PM VIDEO TECHNICIAN documented in this encounter Results * (ABNORMAL) POCT glucose (05/11/2023 12:53 PM VIDEO TECHNICIAN) Glucose, POC 211(H) 70 - 199 mg/dL [facility] Blood 05/11/2023 12:5 3 PM VIDEO TECHNICIAN 05/11/2023 12:53 PM VIDEO TECHNICIAN Reina De La Paz MD LAB POCT ORDERAB LES - DEVICE Final Result Performing Organization Address City/[facility]/ZIP Co de Phone Number [facility] [place] [employer] [place] [address] * POCT ketone, blood (05/11/2023 12:53 PM VIDEO TECHNICIAN) Ketones, Blood, POC 0.1 0.0 - 0.5 mmol/L [facility] Blood 05/11/2023 12:5 3 PM VIDEO TECHNICIAN 05/11/2023 12:53 PM VIDEO TECHNICIAN Reina De La Paz MD LAB POCT ORDERAB LES - DEVICE Final Result Performing Organization Address City/[facility]/ZIP Co de Phone Number [facility] [place] [employer] [place] [address] documented in this encounter Visit Diagnoses Not on filedocumented in this encounter Care Teams Computer Forensics Examiner Relationship Specialty Start Date End Date Justen Gale MD [address] [id number] PCP - General 10/09/17 Liu Jerez MD Consulting Physician Gastroenterology 07/28/17 [place] [address] [facility] [address] [place] [address] Consulting Physician Pulmonary Disease 08/03/17 Khris Arthur MD [address] [facility] [address] [place] [address] Medical Oncologist/Supervisor Water Softener Service Medical Oncology 10/23/17 [place] [address] [facility] [address] [place] [address] Surgeon Orthopedic Surgery 10/23/17 [place] [address] [facility] [address] [place] [address] Consulting Physician Pain Management 10/23/17 [place] [address] [facility] [address] [place] [address] Referring Physician General Surgery 01/26/18 [place] [address] [facility] [address] [place] [address] Consulting Physician Neurology 01/26/18 documented as of this encounter
--- OUTSIDE RECORDS SUMMARY | 2024-04-26 09:15 | XMS_ITS | Encounter Summary ---
Author Organization [facility] Address [address] [id number] Care Team Providers Care Client Relationship Consultant Name Role Phone Liu Jerez MD Unavailable Albert Corbin MD Unavailable Justen Gale MD Primary Care Provider Khris Arthur MD Unavailable [phone] Ko Melendez MD Unavailable John Paul Moyer MD Unavailable Annel Rod MD Unavailable Anali MARSHALL MD, Carlos M. Unavailable [phone] Reason for Visit * Reason Comments Rash Itching denies any c hanges in meds lotions or soaps did do some gardening recently Encounter Details Date Type Department Care Team (Late st Contact Info) Description 09/14/2022 7:00 PM CDT Office Visit [facility] Outpatient Center [address] [address] Bebe Waters [place] [address] [place] [address] Pruritus (Primary Dx) Social History Tobacco Use [...] How often do you attend chur or scientologist services? Never 02/11/2022 Do you [...] Legal Sex Female 12:24 AM DIRECTOR OF SCIENTIFIC RESEARCH Gender Identity Not on file Sexual Orientation [...] Care Everywhere. * Itchy Skin (Discharge Care) (Finnish) documented in this encounter Ordered Prescriptions Prescription [...] not ill-appearing. HENT: Head: Normocephalic. Mouth/Throat: Lips: [place]. Eyes: General: Lids are normal. Conjunctiva/sclera: Right [...] about your condition or care. ?? Copyright Jotvine[employer] 2021 Information is for End User's use only and may not be sold, redistributed or otherwise used for commercial purposes. All illustrations and images included in CareNotes?? are the copyrighted property of [employer]. or Undertone The above information is an assistant director of financial aid only. It is not intended as medical [...] disorder documented in this encounter Care Teams Client Relationship Consultant Relationship Specialty Start Date End Date Justen Gale MD [address] [address] PCP - General 10/09/17 Liu Jerez MD Consulting Physician Gastroenterology 07/28/17 [place] [address] [facility] [address] [place] [address] Consulting Physician Pulmonary Disease 08/03/17 Khris Arthur MD 49[address] [facility] [address] [place] [address] Medical Oncologist/Trimmer Meat Medical Oncology 10/23/17 [place] [address] [facility] [address] [place] [address] Surgeon Orthopedic Surgery 10/23/17 [place] [address] [facility] [address] [place] [address] Consulting Physician Pain Management 10/23/17 [place] [address] [facility] [address] [place] [address] Referring Physician General Surgery 01/26/18 [place] [address] [facility] [address] [place] [address] Consulting Physician Neurology 01/26/18 documented as of this encounter
--- OUTSIDE RECORDS SUMMARY | 2024-04-26 09:15 | XMS_ITS | Encounter Summary ---
Author Organization [facility] Address [address] [place] [address] Phone Care Team Providers Care Toolmaker Helper Name Role Phone Liu Jerez MD Unavailable Albert Corbin MD Unavailable Jsuten Gale MD Primary Care Provider Khris Arthur MD Unavailable [phone] Ko Melendez MD Unavailable [phone] John Paul Moyer MD Unavailable Annel Rod MD Unavailable Anali MARSHALL MD, Carlos M. Unavailable [phone] Encounter Details Date Type Department Care Team (Late st Contact Info) Description 12/16/2022 Orders Only [facility] Oncology [address] [place] [address] Khris Arthur MD 82[address] [facility] [address] [place] [address] Social History Tobacco Use Types Packs/Day Years [...] often do you attend chur ch or mosque services? Never 02/11/2022 Do you belong to any clubs o r organizations such as bahai groups, unions, fraternal or athletic groups, or [...] on file Legal Sex Female 12:24 AM ANESTHESIA DIRECTOR Gender Identity Not on file Sexual Orientation Not on file documented as of this encounter Plan of Treatment Not on file documented as of this encounter Visit Diagnoses Not on filedocumented in this encounter Care Teams Toolmaker Helper Relationship Specialty Start Date End Date Justen Gale MD 2 [facility] [address] [place] [address] PCP - General 10/09/17 Liu Jerez MD Consulting Physician Gastroenterology 07/28/17 [place] [address] [facility] [address] [place] [address] Consulting Physician Pulmonary Disease 08/03/17 Khris Arthur MD 4921 [facility] [address] [place], [place] [id number] Medical Oncologist/Systems Requirements Planner Medical Oncology 10/23/17 [place] [address] [facility] [address] [place] [address] Surgeon Orthopedic Surgery 10/23/17 [place] [address] [facility] [address] [place] [address] Consulting Physician Pain Management 10/23/17 [place] [address] [address] Referring Physician General Surgery 01/26/18 [place] [address] [facility] [address] [place] [address] Consulting Physician Neurology 01/26/18 documented as of this encounter
--- OUTSIDE RECORDS SUMMARY | 2024-04-26 09:15 | XMS_ITS | Encounter Summary ---
Author Organization [facility] Healthcare Address [address] [place] [address] Care Team Providers Care Cone Examiner Name Role Phone Liu Jerez MD Unavailable [phone] Albert Corbin MD Unavailable [phone] Justen Gale MD Primary Care Provider [phone] Khris Arthur MD Unavailable [phone] Ko Melendez MD Unavailable John Paul Moyer MD Unavailable Annel Rod MD Unavailable Anali MARSHALL MD, Carlos M. Unavailable Reason for Visit * Reason Comments Fall Encounter Details Date Type Department Care Team (Late st Contact Info) Description 12/11/2022 6:41 PM CDT - 12/11/2022 8:12 PM CDT Emergency [facility] Emergency Department [address] [place] [id number] Closed head injury, initial encounter (Primary [...] slept in a assisted (including now)? 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 Female 12:24 AM AUTOMOTIVE TECHNICIAN Gender Identity Not on file Sexual [...] Care Everywhere. * Fall Prevention (AfterCare(R) Instructions(ER/ED)) (Japanese) * Post Concussion Syndrome (AfterCare(R) Instructions(ER/ED)) (Japanese) documented in this encounter Medications at Time of Discharge albuterol HFA (PROVENTIL HFA,VENTOLIN HFA,PROAIR HFA) 90 mcg/actuation inhaler Inhale 2 puffs every 6 (six) hours as needed for wheezing or shortness of breath 04/19/2021 BD Ultra-Fine Short Pen Needle 31 gauge x 5/16 needle USE 6 TIMES DAILY DIRECTED 06/24/2021 blood glucose diagnostic (Quireuch Ultra Test) strip 4 (four) times a [...] INSTRUCTED TO FOLLOW UP Justen Gale MD [address] [place], [place] [id number] Call in 1 week DISCHARGE MEDICATIONS Your [...] nightly This examination was transcribed using the MongoHQ voice recognition system without human financial compliance manager. In an effort to expedite patient care, this report has not been adjusted for typographical, grammatical, and syntax by a trained medical device sales consultant. Lila Gasca PA 12/11/221955 Cosigned by Yesenia [...] PM T: ??12/11/2022 6:30 PM Report ID: [id number] Reading Location: ??[id number] Procedure Note Dulce Danielson DO - 12/11/2022 [...] Dulce Danielson D.O. AC: JUDY Report ID: [id number] Reading Location: [id number] Lila [facility]KE[facility] IMG CT PROCEDURES Final Resu [...] PM T: ??12/11/2022 6:24 PM Report ID: [id number] Reading Location: ??[id number] Procedure Note Dulce Danielson DO - 12/11/2022 [...] Dulce Danielson D.O. AC: JUDY Report ID: [id number] Reading Location: [place] [address] PROCEDURES Final Resu [...] PM T: ??12/11/2022 6:28 PM Report ID: [id number] Reading Location: ??[id number] Procedure Note Juan R Johnson MD - [...] R Johnson M.D. AT: AT Report ID: [id number] Reading Location: [id number] Rosa [facility]KE[facility] CT PROCEDURES Final Result * CT head [...] PM T: ??12/11/2022 6:28 PM Report ID: [id number] Reading Location: ??[id number] Procedure Note Juan R Johnson MD - [...] R Johnson M.D. AT: AT Report ID: [id number] Reading Location: [id number] Rosa [facility] Michael CT PROCEDURES Final Result [...] PM T: ??12/11/2022 6:20 PM Report ID: [id number] Reading Location: ??[id number] Procedure Note Dulce Danielson DO - 12/11/2022 [...] Dulce Danielson D.O. AC: JUDY Report ID: [id number] Reading Location: [id number] Rosa Nancy MCKE[facility] IMG XR PROCEDURES Final [...] 12/11/2022 documented in this encounter Care Teams Cone Examiner Relationship Specialty Start Date End Date Justen Gale MD 2 [facility] [address] PCP - General 10/09/17 Liu Jerez MD Consulting Physician Gastroenterology 07/28/17 [place] [address] [id number] [place] [address] Consulting Physician Pulmonary Disease 08/03/17 Khris Arthur MD 4921 [facility] [address] [place] [address] Medical Oncologist/Information Technology Teacher Medical Oncology 10/23/17 [place] [address] [facility] [address] [place] [address] Surgeon Orthopedic Surgery 10/23/17 [place] [address] [facility] [address] [place] [address] Consulting Physician Pain Management 10/23/17 [place] [address] [facility] [address] [place] [address] Referring Physician General Surgery 01/26/18 [place] [address] [facility] [address] [place] [address] Consulting Physician Neurology 01/26/18 documented as of this encounter
--- OUTSIDE RECORDS SUMMARY | 2024-04-26 09:15 | XMS_ITS | Encounter Summary ---
Author Organization [facility] Address [address] [place] [address] Phone Care Team Providers Care Business Objects Architect Name Role Phone Liu Jerez MD Unavailable [phone] Albert Corbin MD Unavailable Justen Gale MD Primary Care Provider [phone] Khris Arthur MD Unavailable [phone] Ko Melendez MD Unavailable John Paul Moyer MD Unavailable Annel Rod MD Unavailable Anali MARSHALL MD, Carlos M. Unavailable [phone] Encounter Details Date Type Department Care Team (Late st Contact Info) Description 03/21/2023 Orders Only [facility] Oncology [address] [facility] 7th [place] [address] [place] [address] Radha Mcgrath RN Malignant neoplasm [...] often do you attend chur ch or buddhism services? Never 02/11/2022 Do you belong to [...] health care facility (including now)? 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 Female 12:24 AM COAGULANT DIPPER Gender Identity Not on file Sexual Orientation [...] as of this encounter Care Teams Business Objects Architect Relationship Specialty Start Date End Date Justen Gale MD 2 [facility] [address] [place] [address] PCP - General 10/09/17 Liu Jerez MD Consulting Physician Gastroenterology 07/28/17 [place] [address] [facility] [address] [place] [address] Consulting Physician Pulmonary Disease 08/03/17 Khris Arthur MD 4921 [facility] [address] [place] [address] Medical Oncologist/Purchasing Associate Medical Oncology 10/23/17 [place] [address] [facility] [address] [place] [address] Surgeon Orthopedic Surgery 10/23/17 [place] [address] [facility] [address] [place] [address] Consulting Physician Pain Management 10/23/17 [place] [address] [facility] [address] [place] [address] Referring Physician General Surgery 01/26/18 [place] [address] [facility] [address] [place] [address] Consulting Physician Neurology 01/26/18 documented as of this encounter
--- OUTSIDE RECORDS SUMMARY | 2024-04-26 09:15 | XMS_ITS | Encounter Summary ---
Author Organization [facility] Address [address] [place] [address] Phone Care Team Providers Care Dynamics Ax Solution Architect Name Role Phone Liu Jerez MD Unavailable [phone] Albert Corbin MD Unavailable Justen Gale MD Primary Care Provider Khris Arthur MD Unavailable [phone] Ko Melendez MD Unavailable [phone] John Paul Moyer MD Unavailable Annel Rod MD Unavailable Anali MARSHALL MD, Carlos M. Unavailable Encounter Details Date Type Department Care Team (Late st Contact Info) Description 08/02/2022 Orders Only [facility] Oncology [address] [facility] Advanced [facility] 7th [place] [address] [place] [address] Khris Arthur MD 49[address] [facility] [address] [place] [address] Social History Tobacco Use Types Packs/Day Years [...] How often do you attend chur or advent services? Never 02/11/2022 Do you belong to [...] on file Legal Sex Female 12:24 AM CLASS A LINEMAN Gender Identity Not on file Sexual Orientation Not on file documented as of this encounter Plan of Treatment Not on file documented as of this encounter Visit Diagnoses Not on filedocumented in this encounter Care Teams Dynamics Ax Solution Architect Relationship Specialty Start Date End Date Justen Gale MD 2 [facility] [address] [place] [address] PCP - General 10/09/17 Liu Jerez MD Consulting Physician Gastroenterology 07/28/17 [place] [address] [facility] [address] [place] [address] Consulting Physician Pulmonary Disease 08/03/17 Khris Arthur MD 49[address] [facility] [address] [place] [address] Medical Oncologist/Risk Mgr Medical Oncology 10/23/17 [place] [address] [facility] [address] [place] [address] Surgeon Orthopedic Surgery 10/23/17 [place] [address] [facility] [address] [place] [address] Consulting Physician Pain Management 10/23/17 [place] [address] [facility] [address] [place] [address] Referring Physician General Surgery 01/26/18 [place] [address] [facility] [address] [place] [address] Consulting Physician Neurology 01/26/18 documented as of this encounter
--- OUTSIDE RECORDS SUMMARY | 2024-04-26 09:15 | XMS_ITS | Encounter Summary ---
Author Organization [facility] Healthcare Address [address] [place] [address] Care Team Providers Care Courtesy Van Driver Name Role Phone Liu Jerez MD Unavailable Albert Corbin MD Unavailable [phone] Justen Gale MD Primary Care Provider Khris Arthur MD Unavailable [phone] Ko Melendez MD Unavailable [phone] John Paul Moyer MD Unavailable Annel Rod MD Unavailable Anali MARSHALL MD, Carlos M. Unavailable Reason for Visit * Reason Comments Shortness of Breath Encounter Details Date Type Department Care Team (Late st Contact Info) Description 05/11/2023 11:08 AM CATTLE EXAMINER - 05/11/2023 12:40 PM [facility] Emergency [facility] [place] [address] Reina De La Paz MD [address] [place] [address] [address] [place] [address] Shortness of breath (Primary Dx) Discharge Disposition: [...] How often do you attend chur or orthodox services? Never 02/11/2022 Do you belong to any clubs o r organizations such as methodist groups, unions, fraternal or athletic groups, or [...] in a jail (including now)? No 02/11/2022 Personal Safety Answer Date Recorded Have you ever been in or are you currently in a harmful physical or emotional relationship or is someone making you feel afraid or unsafe? Denies 05/11/2023 Comments No Sex and Gender Information Value Date Recorded Sex Assigned at Not on file Legal Sex Female 12:24 AM CATTLE EXAMINER Gender Identity Not on file Sexual Orientation Not on file documented as of this encounter Last Filed Vital Signs Vital Sign Reading Time Taken Comments Blood Pressure 126/71 05/11/2023 12:34 PM CATTLE EXAMINER Pulse 75 05/11/2023 12:34 PM CATTLE EXAMINER Temperature 36.9 ??C (98.4 ??F) 05/11/2023 12:[address] Respiratory Rate 18 05/11/2023 12:34 PM CATTLE EXAMINER Oxygen Saturation 95% 05/11/2023 12:34 PM CATTLE EXAMINER Inhaled Oxygen Concentration - - Weight - [...] TIMES DAILY DIRECTED 06/24/2021 blood glucose diagnostic (Videostripuch Ultra Test) strip 4 (four) times a [...] Comment s Discharge to a critical acce [facility] documented in this encounter ED Notes * Cordelia Whittington LCSW - 05/11/2023 11:27 AM CST Karly Marques May 11, 2023 [id number] 11:27 AM [id number] Brief Encounter Karly Winston Marques, 67 y.o., , female Medical team requested consult by social work due to the need for assistance to the family with Adult C[place] . [place] [id number] to assist and provide support. Pt was [...] No SDOH risks identified Cordelia Whittington LCSW LE EXAMINER * Rebeka Reed RN - 05/11/2023 11:12 AM CST Pt states she feels short of breath. States she just started takinig an antibiotic and is allergic to most antibiotics. VSS. BS 286, hx DM2. LE EXAMINER * Felicitas Bangura EMT-P - 05/11/2023 11:08 AM CST Bed: ED1-16 Expected date: 05/11/23 Expected time: Means of arrival: Comments: Adult cert 1100 Felicitas Bangura EMT-P 05/11/23 1108 LE EXAMINER * Reina De La Paz MD - [...] 09/12/2021 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) 08/01/2021 [facility] (current) use 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 inhibitors 10/17/2019 Thyroid nodule 08/07/2018 Dyslipidemia History of breast cancer Intractable pain CVA (cerebral vascular accident) ([facility]) 01/24/2018 Anxiety and depression 11/12/2017 Uncontrolled type 2 diabetes mellitus with hyperglycemia, with long-term current use of insulin ([facility]) 11/06/2017 Allergy to drug 11/06/2017 Dysuria 10/26/2017 Acute left-sided low back pain with left-sided sciatica 10/23/2017 Type 2 diabetes mellitus with neurologic complication, without long-term current use of insulin ([facility]) ([facility]) 10/23/2017 Hypertension 10/23/2017 Long-term current use of opiate analgesic 10/23/2017 Lumbosacral spondylosis without myelopathy 10/23/2017 Radiculopathy, lumbosacral region 10/23/2017 Spinal stenosis of lumbar region without neurogenic claudication 10/23/2017 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 Type 2 diabetes mellitus without complication ([facility]) ([facility]) Constipation Malignant neoplasm of upper-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 ([facility]) 10/17/2017 Cancer of overlapping sites of left female breast ([facility]) 10/13/2017 Chronic anticoagulation Restless leg syndrome Chest pressure 08/01/2017 Positive blood culture 08/01/2017 Hyponatremia 08/01/2017 Diet-controlled diabetes mellitus ([facility]) ([facility]) 08/01/2017 LUL (obstructive sleep apnea) 08/01/2017 History [...] (CMS/HCC) (HCC) breast CHF (congestive heart failure) ([facility]) (HCC) Depression Depression Diabetes (HCC) Disorder of thyroid Thyroid disease DVT (deep venous thrombosis) ([facility]) ([facility]) HX OTHER MEDICAL restless leg syndrome HX OTHER MEDICAL RLS Hypertension Hypertension Osteoarthritis osteoarthritis PE (pulmonary thromboembolism) ([facility]) ([facility]) Sleep apnea Past Surgical History: Procedure Laterality [...] patient's request. Patient to be transferred to [facility] Emergency Department for continued workup and management for current symptoms. Patient amenable tothis plan. Amount and/or Complexity of Data Reviewed Labs: ordered. Radiology: ordered. ECG/medicine tests: ordered and independent interpretation performed. Risk OTC drugs. ED Course as of 05/11/231653 Time: 05/11 1140 Comment: Accepting physician at [facility] ED is Dr. Aj. By: Reina De La Paz MD Time: 05/11 1232 Comment: CXR neg for acute pathology. EKG reassuring with no ST changes or signs of right sided heart strain. Top pending. CBC with slightly elevated neutrophils, overall normal WBC. Pending transfer. By: Reina De La Paz MD Final diagnoses: Shortness of breath Reina De La Paz MD 05/11/231653 LE EXAMINER documented in this encounter Miscellaneous Notes * ED Procedure Note - Remi Mathew MD - 05/11/2023 12:19 PM CATTLE EXAMINER Associated Order(s): ECG 12 lead Procedure ECG [...] No STEMI. Remi Mathew MD 05/11/23 1221 LE EXAMINER documented in this encounter Plan of Treatment Not on file documented as of this encounter Procedures Procedure Name Priority Date/Time Associated Diagnosis Comments ECG 12-LEAD STAT 05/11/2023 12:19 PM CATTLE EXAMINER EGFR STAT 05/11/2023 12:10 PM CATTLE EXAMINER DIFFERENTIAL AUTO STAT 05/11/2023 12: 10 PM CATTLE EXAMINER CBC WITH AUTO DIFFERENTIAL STAT 05/11/2023 12:10 PM CATTLE EXAMINER TROPONIN I Routine 05/11/2023 12:10 PM CATTLE EXAMINER COMPREHENSIVE METABOLIC PANEL STAT 05/11/2023 12:10 PM CATTLE EXAMINER XR CHEST 1 VIEW ED 05/11/2023 11:58 AM CATTLE EXAMINER POCT GLUCOSE DEVICE Routine 05/11/2023 1 1:06 AM CATTLE EXAMINER documented in this encounter Results * ECG 12-LEAD (05/11/2023 12:19 PM CATTLE EXAMINER) Narrative MUSE ÁLVAREZ - 05/11/2023 12:19 PM CATTLE EXAMINER Remi Mathew MD ? 05/11/2023 12:21 PM [...] MD ECG ORDERABLES Final Result MUSE [facility] * eGFR (05/11/2023 12:10 PM CATTLE EXAMINER) [facility] eGFR >90 90 - 130 mL/min/1. [address] [facility] Comment: Interpretive Data Reference Interval Normal [...] reviewed 2021. Blood 05/11/2023 12:1 0 PM CATTLE EXAMINER 05/11/2023 12:16 PM CATTLE EXAMINER us Reina De La Paz MD LAB BLOOD ORDERA BLES Final Result [facility] [place] [address] * (ABNORMAL) Differential, auto (05/11/2023 12:10 PM CATTLE EXAMINER) Neutrophil abs 6.8(H) 1.5 - 6.5 K/cumm [facility] Imm gran abs 0.0 0.0 - 0.1 K/cumm [facility] Lymphocyte abs 1.8 0.8 - 3.3 K/cumm [facility] Monocyte abs 0.7 0.2 - 0.8 K/cumm [facility] Eosinophil abs 0.2 0.0 - 0.5 K/cumm [facility] Basophil abs 0.0 0.0 - 0.1 K/cumm [facility] Neutrophil pct 70.8 % [facility] Comment: Interpretive Data Percent cell count reference ranges are not reported, since discordance with absolute values may lead to misinterpretation of CBC data. Current Interpretive Data was last revised on 2017. Imm gran pct 0.4 % [facility] Comment: Interpretive Data Percent cell count reference ranges are not reported, since discordance with absolute values may lead to misinterpretation of CBC data. Current Interpretive Data was last revised on 2017. Lymphocyte pct 18.9 % [facility] Comment: Interpretive Data Percent cell count reference ranges are not reported, since discordance with absolute values may lead to misinterpretation of CBC data. Current Interpretive Data was last revised on 2017. Monocyte pct 7.2 % [facility] Comment: Interpretive Data Percent cell count reference ranges are not reported, since discordance with absolute values may lead to misinterpretation of CBC data. Current Interpretive Data was last revised on 2017. Eosinophil pct 2.4 % [facility] Comment: Interpretive Data Percent cell count reference ranges are not reported, since discordance with absolute values may lead to misinterpretation of CBC data. Current Interpretive Data was last revised on 2017. Basophil pct 0.3 % [facility] Comment: Interpretive Data Percent cell count reference ranges are not reported, since discordance with absolute values may lead to misinterpretation of CBC data. Current Interpretive Data was last revised on 2017. Blood 05/11/2023 12:1 0 PM CATTLE EXAMINER 05/11/2023 12:16 PM CATTLE EXAMINER Reina De La Paz MD LAB BLOOD ORDERA BLES Final Result [facility] Department [place] [address] * Troponin I (05/11/2023 12:10 PM CATTLE EXAMINER) Troponin I <0.03 0.00 - 0.03 ng/mL [facility] Comment: Interpretive Data: Normal plasma Troponin I [...] for Troponin assay. References: 1. Clin Chem 2013;[id number] 2. Journal of the [place] [employer] 2012;60:1581-98 Current Interpretive Data Last Revised Date: 2017. Blood 05/11/2023 12:1 0 PM CATTLE EXAMINER 05/11/2023 12:16 PM CATTLE EXAMINER us Reina De La Paz MD LAB BLOOD ORDERA BLES Final Result [facility] [place] [address] * (ABNORMAL) Comprehensive metabolic panel (05/11/2023 12:10 PM CATTLE EXAMINER) Sodium 136 135 - 145 mmol/L CERNER [...] falsely elevated. Blood 05/11/2023 12:1 0 PM CATTLE EXAMINER 05/11/2023 12:16 PM CATTLE EXAMINER Reina De La Paz MD LAB BLOOD ORDERA BLES Final Result Performing Organization Address [facility]/ZIP Co de Phone Number [facility] [place] [employer] [address] * CBC with auto differential (05/11/2023 12:10 PM CATTLE EXAMINER) [facility] WBC 9.6 3.8 - 9.9 K/cumm [facility] Hgb 12.1 11.9 - 15.5 g/dL [facility] Hct 37.4 35.6 - 45.5 % [facility] Plt 259 150 - 400 K/cumm [facility] MPV 9.8 9.1 - 12.[address] [facility] RBC 4.19 3.90 - 5.20 M/cumm [facility] MCV 89.3 81.3 - 96.[address] [facility] MCH 28.9 27.1 - 33.[address] [facility] MCHC 32.4 32.3 - 35.7 g/dL [facility] RDW CV 13.4 11.1 - 14.9 % [facility] RDW SD 43.3 35.7 - 48.[address] [facility] NRBC abs 0.00 0.00 - 0.01 K/cumm [facility] Blood 05/11/2023 12:1 0 PM CATTLE EXAMINER 05/11/2023 12:16 PM CATTLE EXAMINER Reina De La Paz MD LAB BLOOD ORDERA BLES Final Result Performing Organization Address City/[facility]/ZIP Co de Phone Number [facility] [place] [employer] [address] * XR Chest 1 Vw Portable (05/11/2023 11:58 AM CATTLE EXAMINER) Anatomical Region Laterality Modality Body, Chest N/A Computed Radiogr aphy 05/11/2023 12:0 1 PM CATTLE EXAMINER Impressions 05/11/2023 12:01 PM CATTLE EXAMINER FINDINGS/IMPRESSION: Mild bibasilar atelectasis. ??Lungs otherwise clear without focal consolidation, pneumothorax, or large pleural effusion. Cardiomediastinal silhouette normal and unchanged. Electronically signed by: Lila Mcnamara M.D. Narrative 05/11/2023 12:01 PM CATTLE EXAMINER EXAMINATION: ??XR CHEST 1 VIEW HISTORY: ??Shortness [...] * (ABNORMAL) POCT glucose (05/11/2023 11:06 AM CATTLE EXAMINER) [facility] Signature Glucose, POC 286(H) 70 - 199 mg/dL [facility] Blood 05/11/2023 11:0 6 AM CATTLE EXAMINER 05/11/2023 11:06 AM CATTLE EXAMINER Reina De La Paz MD LAB POCT ORDERAB LES - DEVICE Final Result [facility] Department [place] [address] documented in this encounter Visit Diagnoses Diagnosis Shortness of breath- Primary documented in this encounter Administered Medications Inactive Administered Medications - up to 3 most recent administrations Medication Order MAR Action Action Date Dose Rate Site diphenhydrAMINE (BENADRYL) capsule 50 mg 50 mg, oral, Once, On Valeri 05/11/23 at 1109, For 1 dose Given 05/11/2023 11:18 AM CATTLE EXAMINER 50 mg documented in this encounter Active and Recently Administered Medications Times are shown in CATTLE EXAMINER. Scheduled Medication Order 05/09/2023 05/10/2023 05/11/2023 diphenhydrAMINE [...] 05/11/2023 documented in this encounter Care Teams Courtesy Van Driver Relationship Specialty Start Date End Date Justen Gale MD [address] [facility] [address] [place] [address] PCP - General 10/09/17 Liu Jerez MD Consulting Physician Gastroenterology 07/28/17 [place] [address] [facility] [address] [place] [address] Consulting Physician Pulmonary Disease 08/03/17 [place] [address] [place] [address] [place] [address] Medical Oncologist/Mortising Machine Operator Medical Oncology 10/23/17 [place] [address] [facility] [address] [place] [address] Surgeon Orthopedic Surgery 10/23/17 [place] [id number] [address] Consulting Physician Pain Management 10/23/17 [place] [id number] [address] Referring Physician General Surgery 01/26/18 [place] [address] [facility] [address] [place] [address] Consulting Physician Neurology 01/26/18 documented as of this encounter
--- OUTSIDE RECORDS SUMMARY | 2024-04-26 09:15 | XMS_ITS | Encounter Summary ---
Author Organization [facility] Healthcare Address [address] [place] [address] Care Team Providers Care Child Welfare Manager Name Role Phone Liu Jerez MD Unavailable Albert Corbin MD Unavailable Justen Gale MD Primary Care Provider [phone] Khris Arthur MD Unavailable [phone] Ko Melendez MD Unavailable [phone] John Paul Moyer MD Unavailable Annle Rod MD Unavailable Anali MARSHALL MD, Carlos M. Unavailable Reason for Visit * Reason Comments Shortness of Breath Encounter Details Date Type Department Care Team (Late st Contact Info) Description 10/05/2022 8:57 PM CDT - 10/06/2022 1:15 AM CDT Emergency [facility] Emergency Department [address] [place] [id number] Yesenia Dunn DO [address] [place] [address] Shortness of breath (Primary Dx); Other fatigue [...] do you attend chur or voodoo services? 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 * Fatigue (AfterCare(R) Instructions(ER/ED)) (Iranian) * Dyspnea (AfterCare(R) Instructions(ER/ED)) (Iranian) * Viral Syndrome (AfterCare(R) Instructions(ER/ED)) (Iranian) documented in this encounter Medications at Time of Discharge albuterol HFA (PROVENTIL HFA,VENTOLIN HFA,PROAIR HFA) 90 mcg/actuation inhaler Inhale 2 puffs every 6 (six) hours as needed for wheezing or shortness of breath 1 BD Ultra-Fine Short Pen Needle 31 gauge x 5/16 needle USE 6 TIMES DAILY DIRECTED 2 blood glucose diagnostic (Samba TVuch Ultra Test) strip 4 (four) times a [...] (HCC) breast CHF (congestive heart failure) (CMS/HCC) ([facility]) Depression Depression Diabetes ([facility]) Disorder of thyroid Thyroid disease DVT (deep venous thrombosis) ([facility]) ([facility]) HX OTHER MEDICAL restless leg syndrome HX OTHER MEDICAL RLS Hypertension Hypertension Osteoarthritis osteoarthritis PE (pulmonary thromboembolism) ([facility]) ([facility]) Sleep apnea Past Surgical History: Procedure Laterality [...] gauge x 5/16 needle blood glucose diagnostic (Samba TVuch Ultra Test) strip exemestane (AROMASIN) 25 mg [...] for uric acid stone formation. Source: [facility] [employer].Last revised 05-04-2017 CBC WITH AUTO DIFFERENTIAL - [...] Ilana Chen M.D. SN: SN Report ID: [id number] Reading Location: [id number] XR Chest Pa Lateral 2 Vw EXAM [...] Mike Acosta M.D. WW: TEO Report ID: [id number] Reading Location: [id number] BP 146/84 Pulse 96 Temp 36.7 ??C [...] though. This examination was transcribed using the [employer] voice recognition system without human line appliance assembler. In an effort to expedite patient care, this report has not been adjusted for typographical, grammatical, and syntax by a trained medical transcription radiology. Clinical Impression: Shortness of breath Other fatigue [...] Data last revised 2020. Testing performed by: [address] [address] Trop T hs delta -4 ng/L MARY JANE Comment:Testing performed by : [address] [address] Trop T hs interp Insignificant MARY JANE Comment:Testing performed by : [address] [address] Blood 10/05/2022 10:2 5 PM CDT 10/05/2022 10:27 PM CDT [facility] BLOOD ORDERABLES Final R esult MARY JANE PHAM [address] [facility] Department [place] [address] * CT Chest PE (CTA) Abdomen Pelvis [...] PM T: ??10/05/2022 11:56 PM Report ID: [id number] Reading Location: ??[id number] Procedure Note Ilana Chen MD - 10/05/2022 [...] by Ilana Chen M.D. SN: Report ID: [id number] Reading Location: [place] [address] Yesenia Dunn DO IMG CT PROCEDURES Final Result * (ABNORMAL) Urinalysis, microscopic only (10/05/2022 9:16 PM CDT) WBC, ur 0-5 0 - 5 /HPF MARY JANE Comment:Testing performed by : [address] [address] RBC, ur 0-2 0 - 2 /HPF MARY JANE Comment:Testing performed by : [address] [address] Epithelial cells, squamous, ur 6-10(A) 0 - 5 /HPF MARY JANE Comment:Testing performed by : [address] [address] Mucous, ur Present(A) MARY JANE Comment:Testing performed by : [address] [address] Culture Reflex Comment Reflex conditions for urine culture (WBC >10) not met. MARY JANE Comment:Testing performed by : [address] [address] Urine 10/05/2022 9:16 PM CDT 10/05/2022 9:18 PM CDT [facility] URINE ORDERABLES Final R esult MARY JANE [address] [facility] [place] [address] * (ABNORMAL) Urinalysis reflex to microscopic and culture Urine (10/05/2022 9:16 PM CDT) Color, ur Yellow Yellow MARY JANE Comment:Testing performed by : [facility], [address] [place] [address], [place]., [address] Clarity, ur Clear Clear MARY JANE Comment:Testing performed by : [address], [place]., [address] Specific gravity, ur 1.020 1.003 - 1.030 MARY JANE Comment:Testing performed by : [address], [place]., [address] pH, urine 5.0 MARY JANE Comment:Testing performed by : [address], [place]., [address] Protein, ur ql Negative Negative MARY JANE Comment:Testing performed by : [address], [place]., [address] Glucose, ur ql Negative Negative MARY JANE Comment:Testing performed by : [address], [place]., [address] Ketones, ur Negative Negative MARY JANE Comment:Testing performed by : [address], [place]., [address] Bilirubin, ur Negative Negative MARY JANE Comment:Testing performed by : [address], [place]., [address] Blood, ur 1+(A) Negative MARY JANE Comment:Testing performed by : [address] [address] Urobilinogen, ur <2.0 <2.0 mg/dL MARY JANE Comment:Testing performed by : [address] [address] Nitrite, ur Negative Negative MARY JANE Comment:Testing performed by : [address] [address] Leukocyte esterase, ur 1+(A) Negative MARY JANE Comment:Testing performed by : [address], [place]., [address] UA reflex comment Reflex to microscopic UA will be performed. MARY JANE Comment:Testing performed by : [address] [address] Urine 10/05/2022 9:16 PM CDT 10/05/2022 9:18 [...] for uric acid stone formation. Source: [facility] [employer]. Last revised 05-04-2017 [facility] MICROBIOLOGY - GENERAL O RDERABLES Final Result Performing Organization Address [facility] Co de Phone Number MARY JANE [address] [facility] [place] [address] * (ABNORMAL) Troponin T high-sensitivity 2-hour (10/05/2022 8:09 PM CDT) Trop T hs 20(H) <=14 ng/L MARY JANE Comment: Ref Range High Interpretive Data For further hscTnT resources including the diagnostic algorithm and an aid in interpretation, copy and paste this link: https://nrl.testcatalog.org/show/hsTrop Current Interpretive Data last revised 2020. Testing performed by: [address] [address] Trop T hs delta -3 ng/L MARY JANE Comment:Testing performed by : [address] [address] Trop T hs interp Insignificant MARY JANE Comment:Testing performed by : [address] [address] Blood 10/05/2022 8:09 PM CDT 10/05/2022 8:14 PM CDT [facility] BLOOD ORDERABLES Final R esult Performing Organization Address City/[facility] Co de Phone Number [facility] [address] [facility] [place] [address] * XR Chest Pa Lateral 2 Vw [...] PM T: ??10/05/2022 7:40 PM Report ID: [id number] Reading Location: ??[id number] Procedure Note Mike Acosta MD PhD - [...] Mike Acosta M.D. WW: TEO Report ID: [id number] Reading Location: [id number] us [facility]G XR PROCEDURES Final Resu lt * ECG 12 lead (10/05/2022 6:38 PM CDT) Pathologist [facility] [place] Ventricular Rate EKG/Min 94 BPM [facility] Atrial Rate 94 BPM [facility] MI-Interval (MSEC) 124 ms [facility] QRS-Interval (MSEC) 86 ms [facility] QT-Interval (MSEC) 370 ms [facility] QTc 462 ms [facility] P [place] 23 degrees [facility] R [place] -7 degrees [facility] T [place] 25 degrees [facility] Diagnosis Normal sinus rhythm Possible Left atrial enlargement Borderline ECG When compared with ECG of 21-JUN-2022 00:42, No significant change was found [facility] 10/05/2022 6:38 PM CDT 10/06/2022 1:47 PM CDT us [facility] ECG ORDERABLES Final Result [facility] [place] * eGFR (10/05/2022 6:36 PM CDT) Pathologist [facility] [place] eGFR 95 [...] was last reviewed 2021. Testing performed by: [address] [address] Blood 10/05/2022 6:36 PM CDT 10/05/2022 6:58 PM CDT us [facility] BLOOD ORDERABLES Final R esult MARY JANE PHAM [address] [place] [address] [place] [address] * Differential, auto (10/05/2022 6:36 PM CDT) Neutrophil abs 6.4 1.7 - 6.5 K/cumm MARY JANE Comment:Testing performed by : [address] [address] Imm gran abs 0.0 0.0 - 0.1 K/cumm MARY JANE Comment:Testing performed by : [address] [address] Lymphocyte abs 2.9 0.8 - 3.3 K/cumm MARY JANE Comment:Testing performed by : [address] [address] Monocyte abs 0.7 0.2 - 0.8 K/cumm MARY JANE Comment:Testing performed by : [address] [address] Eosinophil abs 0.3 0.0 - 0.5 K/cumm MARY JANE Comment:Testing performed by : [address] [address] Basophil abs 0.0 0.0 - 0.1 K/cumm MARY JANE Comment:Testing performed by : [address] [address] Neutrophil pct 61.2 % [facility] Comment: Interpretive Data Percent cell count reference ranges are not reported, since discordance with absolute values may lead to misinterpretation of CBC data. Current Interpretive Data was last revised on 2017. Testing performed by: [address] [address] Imm gran pct 0.4 % [facility] Comment: Interpretive Data Percent cell count reference ranges are not reported, since discordance with absolute values may lead to misinterpretation of CBC data. Current Interpretive Data was last revised on 2017. Testing performed by: [address] [address] Lymphocyte pct 27.9 % [facility] Comment: Interpretive Data Percent cell count reference ranges are not reported, since discordance with absolute values may lead to misinterpretation of CBC data. Current Interpretive Data was last revised on 2017. Testing performed by: [address] [address] Monocyte pct 7.0 % [facility] Comment: Interpretive Data Percent cell count reference ranges are not reported, since discordance with absolute values may lead to misinterpretation of CBC data. Current Interpretive Data was last revised on 2017. Testing performed by: [address] [address] Eosinophil pct 3.1 % [facility] Comment: Interpretive Data Percent cell count reference ranges are not reported, since discordance with absolute values may lead to misinterpretation of CBC data. Current Interpretive Data was last revised on 2017. Testing performed by: [address] [address] Basophil pct 0.4 % [facility] Comment: Interpretive Data Percent cell count reference ranges are not reported, since discordance with absolute values may lead to misinterpretation of CBC data. Current Interpretive Data was last revised on 2017. Testing performed by: [address] [address] Blood 10/05/2022 6:36 PM CDT 10/05/2022 6:59 PM CDT [facility] BLOOD ORDERABLES Final R esult Performing Organization Address City/[facility]/ZIP Co de Phone Number MARY JANE [address] [facility] Department [place] [address] * Influenza A/B, RSV, and COVID-19 PCR Nasopharyngeal (10/05/2022 6:36 PM CDT) COVID-19 RNA Negative Negative [facility] Comment:Testing performed by : [address] [address] Influenza A RNA Negative Negative [facility] Comment:Testing performed by : [address] [address] Influenza B RNA Negative Negative [facility] Comment:Testing performed by : [address] [address] RSV RNA Negative Negative [facility] Comment: Interpretive data: This test is performed using the [employer] Xpress CoV-2/Flu/RSV plus assay. This is a [...] Data last revised 2021. Testing performed by: [address] [address] Nasopharyngeal 10/05/2022 6: 36 PM CDT 10/05/2022 6:59 PM CDT Narrative [facility] - 10/05/2022 7:38 PM CDT Is the Patient experiencing symptoms consistent with COVID?->Yes Date of Symptom Onset->10/05/22 Reason for testing?->Symptomatic [facility] MICROBIOLOGY - GENERAL O RDERABLES Final Result MARY JANE [address] [facility] [place] [address] * (ABNORMAL) Troponin T high-sensitivity series (baseline, 2hr, 4hr, 6hr) (10/05/2022 6:36 PM CDT) Trop T hs 23(H) <=14 ng/L MARY JANE PHAM Comment: Ref Range High Interpretive Data For further hscTnT resources including the diagnostic algorithm and an aid in interpretation, copy and paste this link: https://nrl.testcatalog.org/show/hsTrop Current Interpretive Data last revised 2020. Testing performed by: [facility], [address] [place] [address]., [address] Blood 10/05/2022 6:36 PM CDT 10/05/2022 6:58 PM CDT us [facility] BLOOD ORDERABLES Edited Result - Final MARY JANE PHAM [address] [facility] Department [place] [address] * Pro B-type natriuretic peptide [...] Last Revised Date: 2017. Testing performed by: [address] [address] Blood 10/05/2022 6:36 PM CDT 10/05/2022 6:58 PM CDT us [facility] BLOOD ORDERABLES Final R esult [facility] [address] [facility] Department [place] [address] * Comprehensive metabolic panel (10/05/2022 6:36 PM CDT) Sodium 136 135 - 145 mmol/L MARY JANE PHAM Comment:Testing performed by : [address] [address] Potassium, pl 3.9 3.3 - 4.9 mmol/L MARY JANE PHAM Comment:Testing performed by : [address] [address] Chloride 98 97 - 110 mmol/L MARY JANE PHAM Comment:Testing performed by : [address] [address] CO2 25 22 - 32 mmol/L [facility] Comment:Testing performed by : [address] [address] Anion gap 13 2 - 15 mmol/L MARY JANE Comment:Testing performed by : [address] [address] BUN 15 8 - 25 mg/dL MARY JANE Comment:Testing performed by : [address] [address] Creatinine 0.70 0.60 - 1.10 mg/dL [facility] Comment:Testing performed by : [address] [address] Glucose 186 70 - 199 mg/dL [facility] [...] was last revised 2022. Testing performed by: [address] [address] Calcium 10.1 8.5 - 10.3 mg/dL [facility] Comment:Testing performed by : [address] [address] Bilirubin, total 0.4 0.1 - 1.2 mg/dL [facility] Comment:Testing performed by : [address] [address] Protein, pl 8.5 6.5 - 8.5 g/dL MARY JANE Comment:Testing performed by : [address] [address] Albumin 4.0 3.5 - 5.0 g/dL MARY JANE Comment:Testing performed by : [address] [address] Alk phos 89 40 - 130 Units/L MARY JANE PHAM Comment:Testing performed by : [address] [address] ALT 21 7 - 45 Units/L MARY JANE PHAM Comment:Testing performed by : [address] [address] AST 21 10 - 45 Units/L MARY JANE PHAM Comment:Testing performed by : [address] [address] Blood 10/05/2022 6:36 PM CDT 10/05/2022 6:58 PM CDT us [facility] BLOOD ORDERABLES Final R esult MARY JANE [facility] [place] [address] * (ABNORMAL) CBC with auto differential (10/05/2022 6:36 PM CDT) [facility] WBC 10.5(H) 3.8 - 9.9 K/cumm MARY JANE PHAM Comment:Testing performed by : [address] [address] Hgb 13.6 11.9 - 15.5 g/dL MARY JANE PHAM Comment:Testing performed by : [address] [address] Hct 42.7 35.6 - 45.5 % MARY JANE PHAM Comment:Testing performed by : [address] [address] Plt 301 150 - 400 K/cumm MARY JANE PHAM Comment:Testing performed by : [address] [address] MPV 9.7 9.1 - 12.3 fL MARY JANE PHAM Comment:Testing performed by : [address] [address] RBC 4.77 3.90 - 5.20 M/cumm MARY JANE PHAM Comment:Testing performed by : [address] [address] MCV 89.5 81.3 - 96.4 fL MARY JANE PHAM Comment:Testing performed by : [facility], [address] [place] [address]., [address] MCH 28.5 27.1 - 33.3 pg MARY JANE PHAM Comment:Testing performed by : [address] [address] MCHC 31.9(L) 32.3 - 35.7 g/dL MARY JANE PHAM Comment:Testing performed by : [address] [address] RDW CV 13.8 11.1 - 14.9 % MARY JANE PHAM Comment:Testing performed by : [address] [address] RDW SD 45.5 35.7 - 48.1 fL MARY JANE PHAM Comment:Testing performed by : [address] [address] NRBC abs 0.00 0.00 - 0.01 K/cumm MARY JANE PHAM Comment:Testing performed by : [address] [address] Blood 10/05/2022 6:36 PM CDT 10/05/2022 6:59 PM CDT [facility] BLOOD ORDERABLES Final R esult MARY JANE [address] [facility] [place] [address] documented in this encounter Visit [...] dose, Indications: Chronic Obstructive Pulmonary Disease with BronchospasmsIndications:Procurement Consultant renetta Obstructive Pulmonary Disease with Bronchospasms Given [...] Bronchospasms 2145 (Given - Provider: Senthil Hernandez, DIETARY SUPERVISOR) PRN Medication Order 10/04/2022 10/05/2022 10/06/2022 ioversoL (OPTIRAY 350) syringe 100 mL (COMPLETED) 100 mL, intravenous, Once in imaging, contrast, Starting on Mon10/05/22 at 2146, For 1 dose 222 (Contrast Given - Provider: Corinna Villareal, RT) documented in this encounter Care Teams Child Welfare Manager Relationship Specialty Start Date End Date Justen Gale MD [address] [address] PCP - General 10/09/17 Liu Jerez MD Consulting Physician Gastroenterology 07/28/17 [place] [address] [facility] [address] [place] [address] Consulting Physician Pulmonary Disease 08/03/17 Khris Arthur MD [address] [facility] [address] [place] [address] Medical Oncologist/Inseam Trimming Machine Operator Medical Oncology 10/23/17 [place] [address] [facility] [address] [place] [address] Surgeon Orthopedic Surgery 10/23/17 [place] [address] [facility] [address] [place] [address] Consulting Physician Pain Management 10/23/17 [place] [address] [facility] [address] [place] [address] Referring Physician General Surgery 01/26/18 [place] [address] [facility] [address] [place] [address] Consulting Physician Neurology 01/26/18 documented as of this encounter
--- OUTSIDE RECORDS SUMMARY | 2024-04-26 09:15 | XMS_ITS | Encounter Summary ---
Author Organization [facility] Healthcare Address [address] [place] [address] Care Team Providers Care Floor Attendant Name Role Phone Liu Jerez MD Unavailable [phone] Albert Corbin MD Unavailable Justen Gale MD Primary Care Provider Khris Arthur MD Unavailable [phone] Ko Melendez MD Unavailable [phone] John Paul Moyer MD Unavailable Annel Rod MD Unavailable Anali MARSHALL MD, Carlos M. Unavailable Reason for Visit * Reason Comments Weakness - Generalized Encounter Details Date Type Department Care Team (Late st Contact Info) Description 01/26/2023 3:37 PM CDT - 01/26/2023 9:44 PM CDT Emergency 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 In an effort to expedite patient care, this report has not been adjusted for typographical, grammatical, and syntax by a trained medical logistics specialist. Blaze Armenta NP 01/26/232125 Cosigned by Gil [...] 7.45 MARY JANE Comment:Testing performed by : [address] [address] pCO2, art POC 47(H) 35 - 45 mmHg MARY JANE Comment:Testing performed by : [address] [address] pO2, art POC 80(L) 83 - 108 mmHg MARY JANE Comment:Testing performed by : [address] [address] HCO3, art (Calc) POC 33(H) 20 - 30 mmol/L MARY JANE Comment:Testing performed by : [address] [address] Base excess, art POC 8 mmol/L MARY JANE Comment: Interpretive Data No reference range established. Current interpretive data was last revised 2019. Testing performed by: [address] [address] O2 Sat, art (Jabier) POC 97(H) 90 - 95 % MARY JANE Comment:Testing performed by : [address] [address] Oxy Hgb, art POC 94.9 90.0 - 95.0 % MARY JANE Comment:Testing performed by : [address] [address] Met Hgb, art POC 1.2 0.0 - 1.9 % MARY JANE Comment:Testing performed by : [address] [address] Carboxy Hgb, art POC 1.3 0.0 - 2.9 % MARY JANE Comment:Testing performed by : [address] [address] Hemoglobin, art POC 13.0 11.9 - 15.5 g/dL MARY JANE Comment:Testing performed by : [address] [address] Sodium, art POC 136 135 - 145 mmol/L MARY JANE Comment:Testing performed by : [address] [address] Potassium, art POC 3.9 3.3 - 4.9 mmol/L MARY JANE Comment: Interpretive Data This method is not able to assess for hemolysis, which may falsely increase potassium concentrations. If further testing is needed to evaluate this result, consider in-laboratory plasma potassium. Current Interpretive Data was last revised on 2022. Testing performed by: [address] [address] Glucose, art POC 201(H) 70 - 199 mg/dL MARY JANE Comment:Testing performed by : [address] [address] Ionized Calcium, art POC 5.20(H) 4.50 - 5.10 mg/dL MARY JANE Comment:Testing performed by : [address] [address] Lactate, art POC 1.0 0.7 - 2.0 mmol/L MARY JANE Comment:Testing performed by : [address] [address] Blood 01/26/2023 8:31 PM CDT 01/26/2023 8:31 PM CDT us Notinfile Unknown LAB POCT ORDERABLES - DEVICE F inal Result Performing Organization Address [facility] de Phone Number [facility] [address] [facility] Department of Laboratories [place], [place] [id number] * Ammonia (01/26/2023 8:18 PM CDT) Ammonia 22 19 - 82 mcg/dL MARY JANE Comment:Testing performed by : [address] [address] Blood 01/26/2023 8:18 PM CDT 01/26/2023 8:22 PM CDT us Blaze Armenta KEEPER HELPER LAB BLOOD ORDERABLES Final Resul t Performing Organization Address [facility] Co de Phone Number MARY JANE [address] [facility] Department [place] [address] * (ABNORMAL) Troponin T high-sensitivity 4-hour (01/26/2023 7:12 PM CDT) Trop T hs 25(H) <=14 ng/L MARY JANE Comment: Interpretive Data For further hscTnT resources including the diagnostic algorithm and an aid in interpretation, copy and paste this link: https://nrl.testcatalog.org/show/hsTrop Current Interpretive Data last revised 2020. Testing performed by: [address] [address] Trop T hs delta -1 ng/L MARY JANE Comment:Testing performed by : [address] [address] Trop T hs interp Insignificant MARY JANE Comment:Testing performed by : [address] [address] Blood 01/26/2023 7:12 PM CDT 01/26/2023 7:17 PM CDT Gil Diez DO LAB BLOOD ORDERABLES Final Result Performing Organization Address [facility] Co de Phone Number MARY JANE [address] [facility] Department [place] [address] * (ABNORMAL) Urinalysis, microscopic only (01/26/2023 6:54 PM CDT) WBC, ur 0-5 0 - 5 /HPF MARY JANE Comment:Testing performed by : [address] [address] RBC, ur 0-2 0 - 2 /HPF MARY JANE Comment:Testing performed by : [address] [address] Epithelial cells, squamous, ur 1-5 0 - 5 /HPF MARY JANE Comment:Testing performed by : [address] [address] Mucous, ur Present(A) MARY JANE PHAM Comment:Testing performed by : [facility], [address] [place] [address]., [address] Hyaline casts, ur 6-10 0 - 10 /LPF MARY JANE PHAM Comment:Testing performed by : [address] [address] Culture Reflex Comment Reflex conditions for urine culture (WBC >10) not met. MARY JANE Comment:Testing performed by : [address] [address] Urine 01/26/2023 6:54 PM CDT 01/26/2023 6:56 PM CDT Gil Diez DO LAB URINE ORDERABLES Final Result Performing Organization Address City/State/[facility] Co de Phone Number MARY JANE PHAM [address] [facility] Department [place] [address] * (ABNORMAL) Urinalysis reflex to microscopic and culture Urine (01/26/2023 6:54 PM CDT) Color, ur Yellow Yellow MARY JANE PHAM Comment:Testing performed by : [address] [address] Clarity, ur Clear Clear MARY JANE PHAM Comment:Testing performed by : [address] [address] Specific gravity, ur 1.019 1.003 - 1.030 MARY JANE PHAM Comment:Testing performed by : [address] [address] pH, urine 5.0 MARY JANE PHAM Comment: Interpretive Data ? Urine pH is affected by diet, medications, systemic acid-base disturbances, and renal tubular function. ??pH may affect urinary stone formation. ??For example, urine pH below 6.0 may help reduce the tendency for calcium phosphate stones and pH greater than 6.0 may reduce the tendency for uric acid stone formation. Source: [employer] Current Interpretive Data was last revised on 2017 Testing performed by: [address] [address] Protein, ur ql Negative Negative MARY JANE PHAM Comment:Testing performed by : [address] [place] [address] Glucose, ur ql 2+(A) Negative MARY JANE PHAM Comment:Testing performed by : [address], [place]., [address] Ketones, ur Negative Negative MARY JANE Comment:Testing performed by : [address], [place]., [address] Bilirubin, ur Negative Negative MARY JANE Comment:Testing performed by : [address], [place]., [address] Blood, ur 1+(A) Negative MARY JANE PHAM Comment:Testing performed by : [address], [place]., [address] Urobilinogen, ur <2.0 <2.0 mg/dL MARY JANE PHAM Comment:Testing performed by : [address], [place]., [address] Nitrite, ur Negative Negative MARY JANE Comment:Testing performed by : [address], [place]., [address] Leukocyte esterase, ur Negative Negative MARY JANE Comment:Testing performed by : [address], [place]., [address] UA reflex comment Reflex to microscopic UA will be performed. MARY JANE Comment:Testing performed by : [address] [address] Urine 01/26/2023 6:54 PM CDT 01/26/2023 6:56 PM CDT Gil Diez DO LAB MICROBIOLOGY - GENERAL ORDERABLES Final Result MARY JANE PHAM [address] [facility] Department of Laboratories [place], [place] [id number] * Sepsis Lactate w/ Reflex (01/26/2023 6:40 PM CDT) Sepsis Lactate 1.3 0.7 - 2.0 mmol/L MARY JANE PHAM Comment:Testing performed by : [address], [place]., [address] Blood 01/26/2023 6:40 PM CDT 01/26/2023 6:48 PM CDT us Blaze Armenta NP LAB BLOOD ORDERABLES Final Resul t MARY JANE MH [address] [facility] Department [place] [address] * CT Chest W Contrast (01/26/2023 6:33 [...] PM T: ??01/26/2023 7:08 PM Report ID: [id number] Reading Location: ??[id number] Procedure Note Patrick Zhou MD - 01/26/2023 [...] signed by Patrick STOCKTON: KATH Report ID: [id number] Reading Location: [id number] Gil Diez DO IMG CT PROCEDURES Final Res ult * (ABNORMAL) Troponin T high-sensitivity 2-hour (01/26/2023 5:24 PM CDT) Trop T hs 25(H) <=14 ng/L MARY JANE PHAM Comment: Ref Range High Interpretive Data For further hscTnT resources including the diagnostic algorithm and an aid in interpretation, copy and paste this link: https://nrl.testcatalog.org/show/hsTrop Current Interpretive Data last revised 2020. Testing performed by: [address] [address] Trop T hs delta -1 ng/L MARY JANE PHAM Comment:Testing performed by : [address] [address] Trop T hs interp Insignificant MARY JANE PHAM Comment:Testing performed by : [address] [address] Blood 01/26/2023 5:24 PM CDT 01/26/2023 5:28 PM CDT Gil Diez DO LAB BLOOD ORDERABLES Final Result MARY JANE [address] [facility] Department [place] [address] * CT Head WO Contrast [...] PM T: ??01/26/2023 5:03 PM Report ID: [id number] Reading Location: ??[id number] Procedure Note Albert Thakur MD - 01/26/2023 [...] Albert Thakur M.D. MM: MM Report ID: [id number] Reading Location: [id number] Blaze Armenta NP IMG CT PROCEDURES Final [...] PM T: ??01/26/2023 5:00 PM Report ID: [id number] Reading Location: ??[id number] Procedure Note Albert Thakur MD - 01/26/2023 [...] Albert Thakur M.D. MM: MM Report ID: [id number] Reading Location: [id number] Blaze Armenta NP IMG XR PROCEDURES Final Result * ECG 12 lead (01/26/2023 3:24 PM CDT) Pathologist [facility] Ventricular Rate EKG/Min 96 BPM [facility] Atrial Rate 96 BPM [facility] [place]-Interval (MSEC) [address] [facility] QRS-Interval (MSEC) 86 ms [facility] QT-Interval (MSEC) 342 ms [facility] QTc 432 ms [facility] P [place] 38 degrees [facility] R [place] -5 degrees [facility] T [place] 49 degrees [facility] Diagnosis Normal sinus rhythm Possible Left atrial enlargement Borderline ECG When compared with ECG of 05-OCT-2022 18:38, No significant change was found Confirmed by WILLIAMS HAMMOND M.D. ([id number]) on 01/27/2023 12:11:26 AM [facility] 01/26/2023 3:24 PM CDT 01/27/2023 12:11 AM CDT us Gil Diez DO ECG ORDERABLES Final Resul t [facility] * (ABNORMAL) Sepsis Lactate w/ Reflex (01/26/2023 3:17 PM CDT) Pathologist [facility] Sepsis Lactate 2.1(C) 0.7 - 2.0 mmol/L MARY JANE PHAM Comment: Critical Result called to and read back by bonnie decker, DATE: 2023-01-26 15:59:58 BY: [email or web address] Testing performed by: [facility], [facility] [place]., [address] Blood 01/26/2023 3:17 PM CDT 01/26/2023 3:21 PM CDT us Blaze Armenta NP LAB BLOOD ORDERABLES Final Resul t MARY JANE [address] [facility] Department [place] [address] * eGFR (01/26/2023 3:14 PM [...] was last reviewed 2021. Testing performed by: [facility], [address] [place]., [address] Blood 01/26/2023 3:14 PM CDT 01/26/2023 3:22 PM CDT Gil Diez DO LAB BLOOD ORDERABLES Final Result Performing Organization Address City/[facility] Co de Phone Number [address] [address] * Creatine kinase (CK), total (01/26/2023 3:14 PM CDT) Pathologist [facility] CK 83 30 - 200 Units/L MARY JANE Comment:Testing performed by : [address] [address] Blood 01/26/2023 3:14 PM CDT 01/26/2023 3:22 PM CDT Blaze Armenta NP LAB BLOOD ORDERABLES Final Resul t Performing Organization Address [facility] de Phone Number [address] [place] [address] * Differential, auto (01/26/2023 3:14 PM CDT) Pathologist [facility] Neutrophil abs 6.0 1.7 - 6.5 K/cumm MARY JANE Comment:Testing performed by : [address] [address] Imm gran abs 0.0 0.0 - 0.1 K/cumm MARY JANE Comment:Testing performed by : [address] [address] Lymphocyte abs 2.5 0.8 - 3.3 K/cumm MARY JANE Comment:Testing performed by : [address] [address] Monocyte abs 0.6 0.2 - 0.8 K/cumm MARY JANE Comment:Testing performed by : [address] [address] Eosinophil abs 0.2 0.0 - 0.5 K/cumm MARY JANE Comment:Testing performed by : [address] [address] Basophil abs 0.0 0.0 - 0.1 K/cumm MARY JANE Comment:Testing performed by : [address] [address] Neutrophil pct 64.3 % [facility] Comment: Interpretive Data Percent cell count reference ranges are not reported, since discordance with absolute values may lead to misinterpretation of CBC data. Current Interpretive Data was last revised on 2017. Testing performed by: [address] [address] Imm gran pct 0.4 % [facility] Comment: Interpretive Data Percent cell count reference ranges are not reported, since discordance with absolute values may lead to misinterpretation of CBC data. Current Interpretive Data was last revised on 2017. Testing performed by: [address] [address] Lymphocyte pct 27.1 % [facility] Comment: Interpretive Data Percent cell count reference ranges are not reported, since discordance with absolute values may lead to misinterpretation of CBC data. Current Interpretive Data was last revised on 2017. Testing performed by: [address] [address] Monocyte pct 5.9 % [facility] Comment: Interpretive Data Percent cell count reference ranges are not reported, since discordance with absolute values may lead to misinterpretation of CBC data. Current Interpretive Data was last revised on 2017. Testing performed by: [address] [address] Eosinophil pct 2.0 % [facility] Comment: Interpretive Data Percent cell count reference ranges are not reported, since discordance with absolute values may lead to misinterpretation of CBC data. Current Interpretive Data was last revised on 2017. Testing performed by: [address] [address] Basophil pct 0.3 % [facility] Comment: Interpretive Data Percent cell count reference ranges are not reported, since discordance with absolute values may lead to misinterpretation of CBC data. Current Interpretive Data was last revised on 2017. Testing performed by: [address] [address] Blood 01/26/2023 3:14 PM CDT 01/26/2023 3:22 PM CDT Gil Diez LAB BLOOD ORDERABLES Final Result Performing Organization Address [facility] Co de Phone Number MARY JANE [facility] [place] [address] * aPTT (01/26/2023 3:14 PM CDT) aPTT 29 22 - 37 sec MARY JANE Comment: Interpretive data aPTT test has not been evaluated for monitoring heparin therapy. The anti-Xa is the preferred test. Current interpretive data was last revised on 2019. Testing performed by: [address] [address] Blood 01/26/2023 3:14 PM CDT 01/26/2023 3:22 PM CDT Gil Sheehan Neomerna LAB BLOOD ORDERABLES Final Result Performing Organization Address [facility] Co de Phone Number [address] [address] * (ABNORMAL) Protime-INR (01/26/2023 3:14 PM CDT) PT 15.1(H) 12.0 - 14.6 sec MARY JANE Comment: Ref Range High Testing performed by: [address] [address] INR 1.2 0.9 - 1.2 MARY JANE Comment: Ref Range High Interpretive data Oral anticoagulant therapeutic ranges: Venous thromboembolism prophylaxis or treatment: 2.0-3.0 CARDIOLOGY Standard range: 2.0-3.0 High-intensity range: 2.5-3.5 Refer to indication-specific guidelines for appropriate target ranges for prosthetic heart valve replacement. Current interpretive data was last revised on 2019. Testing performed by: [address] [address] Blood 01/26/2023 3:14 PM CDT 01/26/2023 3:22 PM CDT Gil Diez DO LAB BLOOD ORDERABLES Final Result MARY JANE PHAM [address] [facility] Department [place] [address] * (ABNORMAL) Troponin T high-sensitivity series (baseline, 2hr, 4hr, 6hr) (01/26/2023 3:14 PM CDT) Trop T hs 26(H) <=14 ng/L MARY JANE PHAM Comment: Ref Range High Interpretive Data For further hscTnT resources including the diagnostic algorithm and an aid in interpretation, copy and paste this link: https://nrl.testcatalog.org/show/hsTrop Current Interpretive Data last revised 2020. Testing performed by: [address] [address] Blood 01/26/2023 3:14 PM CDT 01/26/2023 3:22 PM CDT Gil Diez DO LAB BLOOD ORDERABLES Edited Result - Final Performing Organization Address [facility]/ZIP Co de Phone Number MARY JANE PHAM [facility] [facility] [place] [address] * (ABNORMAL) Comprehensive metabolic panel (01/26/2023 3:14 PM CDT) Sodium 135 135 - 145 mmol/L MARY JANE PHAM Comment:Testing performed by : [address] [address] Potassium, pl 4.0 3.3 - 4.9 mmol/L MARY JANE PHAM Comment:Testing performed by : [address] [address] Chloride 96(L) 97 - 110 mmol/L MARY JANE Comment:Testing performed by : [address] [address] CO2 28 22 - 32 mmol/L MARY JANE PHAM Comment:Testing performed by : [address] [address] Anion gap 11 2 - 15 mmol/L MARY JANE Comment:Testing performed by : [address] [address] BUN 18 6 - 25 mg/dL MARY JANE Comment:Testing performed by : [address] [address] Creatinine 0.80 0.60 - 1.10 mg/dL MARY JANE Comment:Testing performed by : [address] [address] Glucose 337(H) 70 - 199 mg/dL MARY [...] was last revised 2022. Testing performed by: [address] [address] Calcium 10.2 8.5 - 10.3 mg/dL MARY JANE Comment:Testing performed by : [address] [address] Bilirubin, total 0.5 0.1 - 1.2 mg/dL MARY JANE Comment:Testing performed by : [address] [address] Protein, pl 8.3 6.5 - 8.5 g/dL MARY JANE Comment:Testing performed by : [address] [address] Albumin 3.9 3.5 - 5.0 g/dL MARY JANE Comment:Testing performed by : [address] [address] Alk phos 86 40 - 130 Units/L MARY JANE Comment:Testing performed by : [address] [address] ALT 17 7 - 45 Units/L MARY JANE PHAM Comment:Testing performed by : [address] [address] AST 16 10 - 45 Units/L MARY JANE PHAM Comment:Testing performed by : [address] [address] Blood 01/26/2023 3:14 PM CDT 01/26/2023 3:22 PM CDT us Gil Diez DO LAB BLOOD ORDERABLES Final Result MARY JANE [address] [facility] Department [place] [address] * CBC with auto differential (01/26/2023 3:14 PM CDT) WBC 9.4 3.8 - 9.9 K/cumm MARY JANE PHAM Comment:Testing performed by : [address] [address] Hgb 14.1 11.9 - 15.5 g/dL MARY JANE PHAM Comment:Testing performed by : [address] [address] Hct 43.3 35.6 - 45.5 % MARY JANE PHAM Comment:Testing performed by : [address] [address] Plt 292 150 - 400 K/cumm MARY JANE PHAM Comment:Testing performed by : [address] [address] MPV 9.6 9.1 - 12.3 fL MARY JANE PHAM Comment:Testing performed by : [address] [address] RBC 4.86 3.90 - 5.20 M/cumm MARY JANE PHAM Comment:Testing performed by : [address] [address] MCV 89.1 81.3 - 96.4 fL MARY JANE PHAM Comment:Testing performed by : [address] [address] MCH 29.0 27.1 - 33.3 pg MARY JANE PHAM Comment:Testing performed by : [facility], [address] [place] [address]., [address] MCHC 32.6 32.3 - 35.7 g/dL MARY JANE PHAM Comment:Testing performed by : [facility], [address] [place] [address]., [address] RDW CV 13.7 11.1 - 14.9 % MARY JANE PHAM Comment:Testing performed by : [facility], [address] [place] [address]., [address] RDW SD 44.6 35.7 - 48.1 fL MARY JANE PHAM Comment:Testing performed by : [address] [address] NRBC abs 0.00 0.00 - 0.01 K/cumm MARY JANE PHAM Comment:Testing performed by : [facility], [address] [place] [address]., [address] Blood 01/26/2023 3:14 PM CDT 01/26/2023 3:22 PM CDT us Gil Diez DO LAB BLOOD ORDERABLES Final Result Performing Organization Address City/State/[facility] Co de Phone Number MARY JANE [address] [facility] Department [place] [address] documented in this encounter Visit [...] RT) documented in this encounter Care Teams Floor Attendant Relationship Specialty Start Date End Date Justen Gale MD [address] [address] PCP - General 10/09/17 Liu Jerez MD Consulting Physician Gastroenterology 07/28/17 [place] [address] [facility] [address] [place] [address] Consulting Physician Pulmonary Disease 08/03/17 Khris Arthur MD [address] [facility] [address] [place] [address] Medical Oncologist/Boil Off Worker Medical Oncology 10/23/17 [place] [address] [facility] [address] [place] [address] Surgeon Orthopedic Surgery 10/23/17 [place] [address] [facility] [address] [place] [address] Consulting Physician Pain Management 10/23/17 [place] [address] [facility] [address] [place] [address] Referring Physician General Surgery 01/26/18 [place] [address] [facility] [address] [place] [address] Consulting Physician Neurology 01/26/18 documented as of this encounter
--- OUTSIDE RECORDS SUMMARY | 2024-04-26 09:15 | XMS_ITS | Encounter Summary ---
Author Organization [facility] Address [address] [place] [address] Phone Care Team Providers Care Courtroom Deputy Or Calendar Clerk Name Role Phone Liu Jeerz MD Unavailable Albert Corbin MD Unavailable [phone] Justen Gale MD Primary Care Provider [phone] Khris Arthur MD Unavailable [phone] Ko Melendez MD Unavailable [phone] John Paul Moyer MD Unavailable Annel Rod MD Unavailable Anali MARSHALL MD, Carlos M. Unavailable [phone] Reason for Visit * Oncology (Routine) - Closed Specialty Diagnoses / Procedures Referred By Contac t Referred To Contact Oncology Diagnoses Malignant neoplasm of overlapping sites of left female breast, unspecified estrogen receptor status (HCC) Justen Gale MD [address] [place] [address] Phone: tel: fax: Khris Arthur MD Phone: tel: fax: Referral ID Status Reason Start Date Expiration Date V isits Requested Visits Authorized [id number] Closed Specialty Services Required 10/18/2019 04/23/2024 99 [phone] Encounter Details Date Type Department Care Team (Late st Contact Info) Description 08/02/2022 11:30 AM CDT Office Visit [facility] Oncology [address] [facility] 7th [place] [address] [place] [address] Khris Arthur MD [address] [facility] [address] [place] [address] Malignant neoplasm of upper-inner quadrant [...] How often do you attend [facility] or religion services? Never 02/11/2022 Do you belong to [...] slept in a alf (including now)? 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 3. Cytology on 07/21/2014 [...] 6 TIMES DAILY DIRECTED blood glucose diagnostic ([employer] Ultra Test) strip 4 (four) times a [...] - 145 mmol/L Comment:Testing performed by : [facility], [address] [place] [phone] Potassium, pl 4.1 3.3 - 4.9 mmol/L MARY JANE [facility] Comment:Testing performed by : [facility], [address] [place] [phone] Chloride 103 97 - 110 mmol/L CERPUJA [facility] Comment:Testing performed by : [facility], [address] [place] [phone] CO2 29 22 - 32 mmol/L CERPUJA BJ Comment:Testing performed by : [facility], [address] [place] [phone] Anion gap 6 2 - 15 mmol/L CERPUJA BJ Comment:Testing performed by : [facility], [address] [place] [phone] BUN 15 6 - 25 mg/dL CERPUJA BJ Comment:Testing performed by : [facility], [address] [place] [phone] Creatinine 0.63 0.60 - 1.10 mg/dL CERPUJA BJ Comment:Testing performed by : [facility], [address] [place] [phone] Glucose 202(H) 70 - 199 mg/dL MARY [...] was last revised 2022. Testing performed by: [facility], [address] [place] [phone] Calcium 9.6 8.5 - 10.3 mg/dL MARY JANE ANGELES Comment:Testing performed by : [facility], [address] [place] [phone] Blood 11/21/2023 2:34 PM CDT 11/21/2023 2:39 PM CDT us Khris Arthur MD LAB BLOOD ORDERABLES Final Result MARY JANE ANGELES [facility] Department [place] [address] * (ABNORMAL) Basic metabolic panel (08/16/2022 3:10 PM CDT) Sodium 132(L) 135 - 145 mmol/L MARY JANE ANGELES Comment:Testing performed by : [facility], [address] [place] [phone] Potassium, pl 4.1 3.3 - 4.9 mmol/L MARY JANE ANGELES Comment:Testing performed by : [facility], [address] [place] [phone] Chloride 97 97 - 110 mmol/L MARY JANE ANGELES Comment:Testing performed by : [facility], [address] [place] [phone] CO2 26 22 - 32 mmol/L MARY JANE ANGELESH Comment:Testing performed by : [facility], [address] [place] [phone] Anion gap 9 2 - 15 mmol/L MARY JANE [facility] Comment:Testing performed by : [facility], [address] [place] [phone] BUN 19 8 - 25 mg/dL MARY JANE [facility] Comment:Testing performed by : [facility], [address] [place] [phone] Creatinine 0.55(L) 0.60 - 1.10 mg/dL MARY JANE [facility] Comment:Testing performed by : [facility], [address] [place] [phone] Glucose 255(H) 70 - 199 mg/dL MARY JANE [facility] Comment: Interpretive Data Fasting glucose [...] was last revised 2022. Testing performed by: [facility], [address] [place] [phone] Calcium 10.3 8.5 - 10.3 mg/dL [facility] Comment:Testing performed by : [facility], [address] [place] [phone] Blood 08/16/2022 3:10 PM CDT 08/16/2022 3:14 PM CDT us Khris Arthur MD LAB BLOOD ORDERABLES Final Result MARY JANE [facility] Department [place] [address] documented in this encounter Visit Diagnoses Diagnosis [...] 08/16/202208/02 documented in this encounter Care Teams Courtroom Deputy Or Calendar Clerk Relationship Specialty Start Date End Date Justen Gale MD 2 [facility] [address] [place] [address] PCP - General 10/09/17 Liu Jerez MD Consulting Physician Gastroenterology 07/28/17 [place] [address] [facility] [address] [place] [address] Consulting Physician Pulmonary Disease 08/03/17 Khris Arthur MD [address] [facility] [address] [place] [address] Medical Oncologist/Assistant Professor Of Life Sciences Medical Oncology 10/23/17 [place] [address] [facility] [address] [place] [address] Surgeon Orthopedic Surgery 10/23/17 [place] [address] [address] Consulting Physician Pain Management 10/23/17 [place] [address] [address] Referring Physician General Surgery 01/26/18 [place] [address] [facility] [address] [place] [address] Consulting Physician Neurology 01/26/18 documented as of this encounter
--- OUTSIDE RECORDS SUMMARY | 2024-04-26 09:15 | XMS_ITS | Encounter Summary ---
Author Organization [facility] Healthcare Address [address] [place] [address] Care Team Providers Care Strip Feeder Name Role Phone Liu Jerez MD Unavailable Albert Corbin MD Unavailable [phone] Justen Gale MD Primary Care Provider Khris Arthur MD Unavailable [phone] Ko Melendez MD Unavailable John Paul Moyer MD Unavailable Annel Rod MD Unavailable Anali MARSHALL MD, Carlos M. Unavailable [phone] Reason for Visit * Reason Comments Pelvic Pain Encounter Details Date Type Department Care Team (Late st Contact Info) Description 02/03/2023 4:48 PM CDT - 02/03/2023 6:[address] 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 * Groin Strain (AfterCare(R) Instructions(ER/ED)) (Irish) documented in this encounter Medications at Time of Discharge albuterol HFA (PROVENTIL HFA,VENTOLIN HFA,PROAIR HFA) 90 mcg/actuation inhaler Inhale 2 puffs every 6 (six) hours as needed for wheezing or shortness of breath 04/19/2021 BD Ultra-Fine Short Pen Needle 31 gauge x 5/16 needle USE 6 TIMES DAILY DIRECTED 06/24/2021 blood glucose diagnostic (TMAT Ultra Test) strip 4 (four) times a [...] Date Adiposity obesity Breast CA (HCC) Cancer ([facility]/HCC) (HCC) breast CHF (congestive heart failure) ([facility]) (HCC) Depression Depression Diabetes (HCC) Disorder of thyroid Thyroid disease DVT (deep venous thrombosis) ([facility]) ([facility]) HX OTHER MEDICAL restless leg syndrome HX OTHER MEDICAL RLS Hypertension Hypertension Osteoarthritis osteoarthritis PE (pulmonary thromboembolism) ([facility]) ([facility]) Sleep apnea PAST SURGICAL HISTORY Past Surgical [...] Justen Shah M.D. MF: PAUL Report ID: [id number] Reading Location: [id number] EKG EKG: NSR with no acute ischemic [...] INSTRUCTED TO FOLLOW UP Justen Gale MD [address] [place] [address] In 1 week DISCHARGE MEDICATIONS Your medication [...] Nightly This examination was transcribed using the [employer] voice recognition system without human machine design engineer. In an effort to expedite patient care, this report has not been adjusted for typographical, grammatical, and syntax by a trained medical language specialist. Rosa Cruz PA 02/03/23 180 Cosigned by Samson Barrientos MD at 02/03/2023 8:35 PM CDT Associated attestation - Samson Barrientos MD - 02/03/2023 8:35 PM CDT ED Attestation I was present in the emergency department for consultation on this patient. This patient was not presented to me nor was I asked to evalute the patient before they were discharged. I reviewed the OUT AND OUT CIGAR MAKER HAND/PA note briefly. * Micaela King RN - [...] PM T: ??02/03/2023 5:34 PM Report ID: [id number] Reading Location: ??[id number] Procedure Note Justen Shah, DO - 02/03/2023 [...] signed by Justen MILLER: PAUL Report ID: [id number] Reading Location: [place] [address] Rosa [facility] PROCEDURES Final Result * (ABNORMAL) Troponin T high-sensitivity 2-hour (02/03/2023 4:35 PM CDT) Trop T hs 20(H) <=14 ng/L Comment: Ref Range High Interpretive Data For further hscTnT resources including the diagnostic algorithm and an aid in interpretation, copy and paste this link: https://nrl.testcatalog.org/show/hsTrop Current Interpretive Data last revised 2020. Testing performed by: [facility], [address] [place] [address]., [address] Trop T hs delta -2 ng/L MARY JANE Comment:Testing performed by : [address] [address] Trop T hs interp Insignificant MARY JANE Comment:Testing performed by : [address] [address] Blood 02/03/2023 4:35 PM CDT 02/03/2023 4:39 PM CDT Rosa MCKEON LAB BLOOD ORDERABLES Final Resu lt Performing Organization Address City/[facility] Co de Phone Number MARY JANE [address] [facility] Department [place] [address] * ECG 12 lead (02/03/2023 3:57 PM CDT) Ventricular Rate EKG/Min 97 BPM [facility] Atrial Rate 97 BPM [facility] ID-Interval (MSEC) 140 ms [facility] QRS-Interval (MSEC) 78 ms [facility] QT-Interval (MSEC) 346 ms [facility] QTc 439 ms [facility] P Cleaton -1 degrees [facility] R [place] -12 degrees [facility] T [place] 23 degrees [facility] Diagnosis Normal sinus rhythm Normal ECG When compared with ECG of 26-JAN-2023 15:24, No significant change was found Confirmed by FRANCY GREWAL M.D. ([id number]) on 02/09/2023 7:18:24 AM [facility] 02/03/2023 3:57 PM CDT 02/09/2023 7:18 AM CDT Rosarupert Cruz PA ECG ORDERABLES Final Result Performing Organization Address City/[facility] Co de Phone Number [facility] * (ABNORMAL) Urinalysis reflex to microscopic and culture Urine (02/03/2023 2:50 PM CDT) Color, ur Yellow Yellow Comment:Testing performed by : [address] [address] Clarity, ur Clear Clear MARY JANE Comment:Testing performed by : [address] [address] Specific gravity, ur 1.024 1.003 - 1.030 MARY JANE Comment:Testing performed by : [address], [place]., [address] pH, urine 5.0 MARY JANE Comment: Interpretive Data ? Urine pH is affected by diet, medications, systemic acid-base disturbances, and renal tubular function. ??pH may affect urinary stone formation. ??For example, urine pH below 6.0 may help reduce the tendency for calcium phosphate stones and pH greater than 6.0 may reduce the tendency for uric acid stone formation. Source: Jerez [employer] Current Interpretive Data was last revised on 2017 Testing performed by: [address] [address] Protein, ur ql Negative Negative MARY JANE Comment:Testing performed by : [address] [address] Glucose, ur ql 2+(A) Negative MARY JANE Comment:Testing performed by : [address] [address] Ketones, ur Negative Negative MARY JANE Comment:Testing performed by : [address] [address] Bilirubin, ur Negative Negative MARY JANE Comment:Testing performed by : [address] [address] Blood, ur Negative Negative MARY JANE Comment:Testing performed by : [address] [address] Urobilinogen, ur <2.0 <2.0 mg/dL MARY JANE Comment:Testing performed by : [address] [address] Nitrite, ur Negative Negative MARY JANE Comment:Testing performed by : [facility], [address] [place] [address]., [address] Leukocyte esterase, ur Negative Negative MARY JANE Comment:Testing performed by : [address] [address] UA reflex comment Reflex conditions for microscopic UA and culture not met. MARY JANE Comment:Testing performed by : [facility], [address] [place] [address]., [address] Urine 02/03/2023 2:50 PM CDT 02/03/2023 3:09 PM CDT Rosa MCKEON LAB MICROBIOLOGY - GENERAL ORDE RABLES Final Result Performing Organization Address [facility] Co de Phone Number MARY JANE [address] [place] [address] * (ABNORMAL) Troponin T high-sensitivity series (baseline, 2hr, 4hr, 6hr) (02/03/2023 2:44 PM CDT) Pathologist [facility] Trop T hs 22(H) <=14 ng/L Comment: Ref Range High Interpretive Data For further hscTnT resources including the diagnostic algorithm and an aid in interpretation, copy and paste this link: https://nrl.testcatalog.org/show/hsTrop Current Interpretive Data last revised 2020. Testing performed by: [address] [address] Blood 02/03/2023 2:44 PM CDT 02/03/2023 2:57 PM CDT Rosa MCKEON LAB BLOOD ORDERABLES Final Resu lt Performing Organization Address [facility]/ZIP Co de Phone Number MARY JANE [address] [place] [address] * eGFR (02/03/2023 2:44 PM CDT) Pathologist [facility] eGFR 71 mL/min/1. 73 m2 Comment: Interpretive [...] was last reviewed 2021. Testing performed by: [address] [address] Blood 02/03/2023 2:44 PM CDT 02/03/2023 2:57 PM CDT us Rosa MCKEON LAB BLOOD ORDERABLES Final Resu lt MARY JANE PHAM [address] [facility] Department [place] [address] * Differential, auto (02/03/2023 2:44 PM CDT) Neutrophil abs 5.5 1.7 - 6.5 K/cumm Comment:Testing performed by : [address] [address] Imm gran abs 0.0 0.0 - 0.1 K/cumm MARY JANE PHAM Comment:Testing performed by : [address] [address] Lymphocyte abs 2.7 0.8 - 3.3 K/cumm [facility] Comment:Testing performed by : [address] [address] Monocyte abs 0.6 0.2 - 0.8 K/cumm [facility] Comment:Testing performed by : [address], [place]., [address] Eosinophil abs 0.3 0.0 - 0.5 K/cumm [facility] Comment:Testing performed by : [address], [place]., [address] Basophil abs 0.1 0.0 - 0.1 K/cumm [facility] Comment:Testing performed by : [address] [address] Neutrophil pct 59.7 % [facility] Comment: Interpretive Data Percent cell count reference ranges are not reported, since discordance with absolute values may lead to misinterpretation of CBC data. Current Interpretive Data was last revised on 2017. Testing performed by: [address] [address] Imm gran pct 0.3 % [facility] Comment: Interpretive Data Percent cell count reference ranges are not reported, since discordance with absolute values may lead to misinterpretation of CBC data. Current Interpretive Data was last revised on 2017. Testing performed by: [address] [address] Lymphocyte pct 29.6 % [facility] Comment: Interpretive Data Percent cell count reference ranges are not reported, since discordance with absolute values may lead to misinterpretation of CBC data. Current Interpretive Data was last revised on 2017. Testing performed by: [address] [address] Monocyte pct 6.8 % [facility] Comment: Interpretive Data Percent cell count reference ranges are not reported, since discordance with absolute values may lead to misinterpretation of CBC data. Current Interpretive Data was last revised on 2017. Testing performed by: [address] [address] Eosinophil pct 3.1 % [facility] Comment: Interpretive Data Percent cell count reference ranges are not reported, since discordance with absolute values may lead to misinterpretation of CBC data. Current Interpretive Data was last revised on 2017. Testing performed by: [address] [address] Basophil pct 0.5 % MARY JANE PHAM Comment: Interpretive Data Percent cell count reference ranges are not reported, since discordance with absolute values may lead to misinterpretation of CBC data. Current Interpretive Data was last revised on 2017. Testing performed by: [address] [address] Blood 02/03/2023 2:44 PM CDT 02/03/2023 2:57 PM CDT Rosa Cruz [place] LAB BLOOD ORDERABLES Final Resu lt Performing Organization Address [facility] Co de Phone Number [address] [place] [address] * Lipase (02/03/2023 2:44 PM CDT) Pathologist [facility] Lipase 17 10 - 99 Units/L Comment:Testing performed by : [address] [address] Blood (Blood, Venous) 02/03/2023 2:44 PM CDT 02/03/2023 2:57 PM CDT Rosarupert Cruz [place] LAB BLOOD ORDERABLES Final Resu lt Performing Organization Address [facility] Co de Phone Number [address] [address] * (ABNORMAL) Comprehensive metabolic panel (02/03/2023 2:44 PM CDT) Pathologist [facility] Sodium 135 135 - 145 mmol/L Comment:Testing performed by : [address] [address] Potassium, pl 4.7 3.3 - 4.9 mmol/L MARY JANE PHAM Comment: HEMOLYZED: Hemolysis interferes with the above test. Testing performed by: [address] [address] Chloride 98 97 - 110 mmol/L MARY JANE Comment:Testing performed by : [address], [place]., [address] CO2 28 22 - 32 mmol/L MARY JANE Comment:Testing performed by : [address], [place]., [address] Anion gap 9 2 - 15 mmol/L MARY JANE Comment:Testing performed by : [address], [place]., [address] BUN 17 6 - 25 mg/dL [facility] Comment:Testing performed by : [address], [place]., [address] Creatinine 0.90 0.60 - 1.10 mg/dL MARY JANE Comment:Testing performed by : [address], [place]., [address] Glucose 270(H) 70 - 199 mg/dL [facility] [...] was last revised 2022. Testing performed by: [address] [address] Calcium 10.0 8.5 - 10.3 mg/dL [facility] Comment:Testing performed by : [address] [address] Bilirubin, total 0.5 0.1 - 1.2 mg/dL MARY JANE Comment:Testing performed by : [address] [address] Protein, pl 8.5 6.5 - 8.5 g/dL MARY JANE Comment:Testing performed by : [address] [address] Albumin 4.1 3.5 - 5.0 g/dL MARY JANE PHAM Comment:Testing performed by : [address] [address] Alk phos 88 40 - 130 Units/L MARY JANE Comment:Testing performed by : [address] [address] ALT 21 7 - 45 Units/L MARY JANE Comment: HEMOLYZED: Hemolysis interferes with the above test. Testing performed by: [address] [address] AST 23 10 - 45 Units/L MARY JANE Comment: HEMOLYZED: Hemolysis interferes with the above test. Testing performed by: [address] [address] Blood 02/03/2023 2:44 PM CDT 02/03/2023 2:57 PM CDT Rosa MCKEON LAB BLOOD ORDERABLES Final Resu lt MARY JANE [facility] Department [place] [address] * CBC with auto differential (02/03/2023 2:44 PM CDT) [facility] WBC 9.3 3.8 - 9.9 K/cumm Comment:Testing performed by : [address] [address] Hgb 13.9 11.9 - 15.5 g/dL MARY JANE PHAM Comment: Interpretive Data A reference range for this assay has not been established for patients with an unknown legal sex. Please refer to the laboratory test catalog for established sex-specific reference intervals. Current interpretive data was last revised on 2023. Testing performed by: [address] [address] Hct 42.8 35.6 - 45.5 % MARY JANE PHAM Comment:Testing performed by : [address] [address] Plt 290 150 - 400 K/cumm MARY JANE PHAM Comment:Testing performed by : [address] [address] MPV 9.6 9.1 - 12.3 fL MARY JANE PHAM Comment:Testing performed by : [address] [address] RBC 4.80 3.90 - 5.20 M/cumm MARY JANE PHAM Comment: Interpretive Data A reference range for this assay has not been established for patients with an unknown legal sex. Please refer to the laboratory test catalog for established sex-specific reference intervals. Current interpretive data was last revised on 2023. Testing performed by: [address] [address] MCV 89.2 81.3 - 96.4 fL MARY JNAE PHAM Comment:Testing performed by : [address] [address] MCH 29.0 27.1 - 33.3 pg MARY JANE PHAM Comment:Testing performed by : [address] [address] MCHC 32.5 32.3 - 35.7 g/dL MARY JANE PHAM Comment:Testing performed by : [address] [address] RDW CV 13.7 11.1 - 14.9 % MARY JANE PHAM Comment:Testing performed by : [address] [address] RDW SD 44.7 35.7 - 48.1 fL MARY JANE PHAM Comment:Testing performed by : [address] [address] NRBC abs 0.00 0.00 - 0.01 K/cumm MARY JANE PHAM Comment:Testing performed by : [address] [address] Blood (Blood, Venous) 02/03/2023 2:44 PM CDT 02/03/2023 2:57 PM CDT us Rosa MCKEON LAB BLOOD ORDERABLES Final Resu lt MARY JANE [address] [facility] Department [place] [address] documented in this encounter Visit Diagnoses Diagnosis [...] 02/03/2023 documented in this encounter Care Teams Strip Feeder Relationship Specialty Start Date End Date Justen Gale MD [address] [address] PCP - General 10/09/17 Liu Jerez MD Consulting Physician Gastroenterology 07/28/[address] [place] [address] [facility] [address] [place] [address] Consulting Physician Pulmonary Disease 08/03/17 Khris Arthur MD 49[address] [facility] [address] [place] [address] Medical Oncologist/Strategic Partnership Specialist Medical Oncology 10/23/17 [place] [address] [facility] [address] [place] [address] Surgeon Orthopedic Surgery 10/23/17 [place] [address] [facility] [address] [place] [address] Consulting Physician Pain Management 10/23/17 [place] [address] [facility] [address] [place] [address] Referring Physician General Surgery 01/26/18 [place] [address] [facility] [address] [place] [address] Consulting Physician Neurology 01/26/18 documented as of this encounter
--- OUTSIDE RECORDS SUMMARY | 2024-04-26 09:15 | XMS_ITS | Encounter Summary ---
Author Organization [facility] Healthcare Address [address] [place] [address] Care Team Providers Care Car Salesperson Name Role Phone Liu Jerez MD Unavailable [phone] Albert Corbin MD Unavailable [phone] Justen Gale MD Primary Care Provider [phone] Khris Arthur MD Unavailable [phone] Ko Melendez MD Unavailable John Paul Moyer MD Unavailable Annel Rod MD Unavailable Anali MARSHALL MD, Carlos M. 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 Gender Identity Not on file Sexual [...] on filedocumented in this encounter Care Teams Car Salesperson Relationship Specialty Start Date End Date Justen Gale MD 2 [facility] [address] [place] [address] PCP - General 10/09/17 Liu Jerez MD Consulting Physician Gastroenterology 07/28/17 [place] [address] [address] [facility] [address] [place] [address] Consulting Physician Pulmonary Disease 08/03/17 Khris Arthur MD 4921 [facility] [address] [place] [address] Medical Oncologist/Computer Operator Medical Oncology 10/23/17 [place] [address] [address] Surgeon Orthopedic Surgery 10/23/17 [place] [address] [address] Consulting Physician Pain Management 10/23/17 [place] [address] [address] Referring Physician General Surgery 01/26/18 [place] [address] [facility] [address] [place] [address] Consulting Physician Neurology 01/26/18 documented as of this encounter
--- OUTSIDE RECORDS SUMMARY | 2024-04-26 09:15 | XMS_ITS | Encounter Summary ---
Author Organization [facility] Address [address] [place] [address] Phone Care Team Providers Care Roadability Machine Operator Name Role Phone Liu Jerez MD Unavailable Albert Corbin MD Unavailable [phone] Justen Gale MD Primary Care Provider Khris Arhtur MD Unavailable [phone] Ko Melendez MD Unavailable [phone] John Paul Moyer MD Unavailable Annel Rod MD Unavailable Anali MARSHALL MD, Carlos M. Unavailable Encounter Details Date Type Department Care Team (Late st Contact Info) Description 07/12/2022 Orders Only [facility] Oncology 49[address] [facility] Advanced [facility] 7th [place] [address] [place] [address] Khris Arthur MD 4921 [facility] [address] [place] [address] Other pulmonary embolism without acute cor pulmonale, [...] you attend chur ch or adventism services? 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 [address] [place] [address] Consulting Physician Pulmonary Disease 08/03/17 Khris Arthur MD 4921 [facility] [address] [place] [address] Medical Oncologist/Under Seal Operator Medical Oncology 10/23/[address] [place] [address] [facility] [address] [place] [address] Surgeon Orthopedic Surgery 10/23/17 [place] [address] [address] Consulting Physician Pain Management 10/23/17 [place] [address] [address] Referring Physician General Surgery 01/26/18 [place] [address] [facility] [address] [place] [address] Consulting Physician Neurology 01/26/18 documented as of this encounter
--- OUTSIDE RECORDS SUMMARY | 2024-04-26 09:15 | XMS_ITS | Encounter Summary ---
Author Organization [facility] Address [address] [place] [address] Phone Care Team Providers Care Associate Dean Of Women Name Role Phone Liu Jerez MD Unavailable [phone] Albert Corbin MD Unavailable Justen Gale MD Primary Care Provider Khris Arthur MD Unavailable [phone] Ko Melendez MD Unavailable John Paul Moyer MD Unavailable Annel Rod MD Unavailable Anali MARSHALL MD, Carlos M. 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 Bone disorder Khris Arthur MD [address] [facility] [address] [place] [address] Phone: tel: fax: [facility] [address] [facility] 7th [place] [address] Phone: tel: Referral ID Status Reason Start Date Expiration Date V isits Requested Visits Authorized [id number] Authorized 08/02/2022 07/31/2024 1 60 Encounter Details Date Type Department Care Team (Late st Contact Info) Description 08/16/2022 3:30 PM CDT Infusion [facility] Oncology [address] [facility] 7th [place] [address] Malignant neoplasm of upper-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, unspecified estrogen receptor status (HCC) (Primary Dx); Malignant neoplasm of upper-inner quadrant of left breast in female, estrogen receptor positive (HCC); group home (current) use 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 inhibitors; Bone disorder [...] How often do you attend chur or jew services? Never 02/11/2022 Do you belong to [...] in a longterm (including now)? 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 Bone disorder Disorder of bone and cartilage, unspecified documented in this encounter Administered Medications Inactive Administered Medications - up to 3 most recent administrations Medication Order MAR Action Action Date Dose Rate Site zoledronic bkli-ksixmlsP-bbmjr (RECLAST) 5 mg/100 mL premix 5 mg 5 mg, intravenous, at 300 mL/hr, Administer over 20 Minutes, Once, On Tu08/16/22 at 1715, For 1 doseIndications:Malignant neoplasm of upper-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, unspecified estrogen receptor status (HCC),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,Bone disorder New Bag 08/16/2022 5:11 PM CDT 5 mg 300 mL /hr documented in this encounter Orders Medications Ordered That Tyler ht Not Have Been Administered Count Last Ordered Date First Ordered Date zoledronic ybvy-xapeycaR-jmn er (RECLAST) 5 mg/100 mL premix 5 mg 1 08/16/2022 Nursing Count Last Ordered Date First Orde red Date ONCBCN TREATMENT PARAMETERS 1 1 08/16/2022 VITAL SIGNS 1 08/16/2022 Appointment Requests Count Last Ordered Date Fi rst Ordered Date INFUSION APPT REQUEST 60 MIN 1 08/16/2022 documented in this encounter Care Teams Associate Dean Of Women Relationship Specialty Start Date End Date Justen Gale MD [address] [address] PCP - General 10/09/17 Liu Jerez MD Consulting Physician Gastroenterology 07/28/[address] [place] [address] [facility] [address] [place] [address] Consulting Physician Pulmonary Disease 08/03/17 Khris Arthur MD 4921 [facility] [address] [place] [address] Medical Oncologist/Preventive Medicine Officer Medical Oncology 10/23/[address] [place] [address] [facility] [address] [place] [address] Surgeon Orthopedic Surgery 10/23/17 [place] [address] [address] Consulting Physician Pain Management 10/23/[address] [place] [address] [facility] [address] [place] [address] Referring Physician General Surgery 01/26/18 [place] [address] [facility] [address] [place] [address] Consulting Physician Neurology 01/26/18 documented as of this encounter
--- OUTSIDE RECORDS SUMMARY | 2024-04-26 09:15 | XMS_ITS | Encounter Summary ---
Author Organization [facility] Address [address] [place] [address] Phone Care Team Providers Care Circus Artist Name Role Phone Liu Jerez MD Unavailable [phone] Albert Corbin MD Unavailable [phone] Justen Gale MD Primary Care Provider Khris Arthur MD Unavailable [phone] Ko Melendez MD Unavailable John Paul Moyer [...] APPT ONC LAB ONLY Khris Arthur MD 5[address] [facility] [address] [place] [address] Phone: tel: fax: Khris Arthur MD 4921 [facility] [address] [place] [address] Phone: tel: fax: Referral ID Status Reason Start Date Expiration Date V isits Requested Visits Authorized [id number] Closed Specialty Services Required 07/23/2020 04/23/2024 99 99 Encounter Details Date Type Department Care Team (Late st Contact Info) Description 08/16/2022 3:00 PM CDT Lab [facility] Oncology 49[address] [facility] Advanced [facility] 7th [place] [address] [place] [address] Malignant neoplasm of upper-inner quadrant of left [...] How often do you attend chur or mormonism services? 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 Gender Identity Not on file Sexual [...] 08/16/2022 documented in this encounter Care Teams Circus Artist Relationship Specialty Start Date End Date Justen Gale MD 2 [place] [address] PCP - General 10/09/17 Liu Jerez MD Consulting Physician Gastroenterology 07/28/17 [place] [address] [facility] [address] [place] [address] Consulting Physician Pulmonary Disease 08/03/17 Khris Arthur MD [address] [facility] [address] [place] [address] Medical Oncologist/Piling Cutter Medical Oncology 10/23/17 [place] [address] [facility] [address] [place] [address] Surgeon Orthopedic Surgery 10/23/17 [place] [address] [facility] [address] [place] [address] Consulting Physician Pain Management 10/23/17 [place] [address] [facility] [address] [place] [address] Referring Physician General Surgery 01/26/18 [place] [address] [place] [address] Consulting Physician Neurology 01/26/18 documented as of this encounter
--- OUTSIDE RECORDS SUMMARY | 2024-04-26 09:15 | XMS_ITS | Encounter Summary ---
Author Organization [facility] Healthcare Address [address] [place] [address] Care Team Providers Care Load Dropper Name Role Phone Liu Jerez MD Unavailable Albert Corbin MD Unavailable Justen Gale MD Primary Care Provider Khris Arthur MD Unavailable [phone] Ko Melendez MD Unavailable John Paul Moyer MD Unavailable Annel Rod MD Unavailable Anali MARSHALL MD, Carlos M. Unavailable [phone] Encounter Details Date Type Department Care Team (Latest Contact Info) Description 08/16/2022 2:46 PM CDT - 08/16/2022 11:59 PM CDT Hospital Encounter [facility] Advanced [facility] [place] [facility] ([facility]) [address] [place] [address] Malignant neoplasm of upper-inner quadrant of left [...] often do you attend chur ch or jew services? 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 [address] [facility] Comment: Interpretive Data Reference Interval [...] was last reviewed 2021. Testing performed by: [facility], [address] [place] [phone] Blood 08/16/2022 3:10 PM CDT 08/16/2022 3:14 PM CDT Khris Arthur MD LAB BLOOD ORDERABLES Final Result [facility] Department of Laboratories [place], [place] [id number] * (ABNORMAL) Basic metabolic panel (08/16/2022 3:10 PM CDT) Sodium 132(L) 135 - 145 mmol/L [facility] Comment:Testing performed by : [facility], [address] [place] [phone] Potassium, pl 4.1 3.3 - 4.9 mmol/L [facility] Comment:Testing performed by : [facility], [address] [place] [phone] Chloride 97 97 - 110 mmol/L [facility] Comment:Testing performed by : [facility], [address] [place] [phone] CO2 26 22 - 32 mmol/L [facility] Comment:Testing performed by : [facility], [address] [place] [phone] Anion gap 9 2 - 15 mmol/L [facility] Comment:Testing performed by : [facility], [address] [place] [phone] BUN 19 8 - 25 mg/dL [facility] Comment:Testing performed by : [facility], [address] [place] [phone] Creatinine 0.55(L) 0.60 - 1.10 mg/dL [facility] Comment:Testing performed by : [facility], [address] [place] [phone] Glucose 255(H) 70 - 199 mg/dL MARY [...] was last revised 2022. Testing performed by: [facility], [address] [place] [phone] Calcium 10.3 8.5 - 10.3 mg/dL [facility] Comment:Testing performed by : [facility], [address] [place] [phone] Blood 08/16/2022 3:10 PM CDT 08/16/2022 3:14 PM CDT us Khris Arthur MD LAB BLOOD ORDERABLES Final Result [facility] Department [place] [address] documented in this encounter Visit Diagnoses Diagnosis Malignant neoplasm of upper-inner quadrant of left breast in female, estrogen receptor positive (HCC) documented in this encounter Care Teams Load Dropper Relationship Specialty Start Date End Date Justen Gale MD 2 [facility] [address] [place] [address] PCP - General 10/09/17 Liu Jerez MD Consulting Physician Gastroenterology 07/28/17 [place] [address] [facility] [address] [place] [address] Consulting Physician Pulmonary Disease 08/03/17 Khris Arthur MD 4921 [facility] [address] [place] [address] Medical Oncologist/Dorr Operator Medical Oncology 10/23/17 [place] [address] [facility] [address] [place] [address] Surgeon Orthopedic Surgery 10/23/17 [place] [address] [facility] [address] [place] [address] Consulting Physician Pain Management 10/23/17 [place] [address] [facility] [address] [place] [address] Referring Physician General Surgery 01/26/18 [place] [address] [facility] [address] [place] [address] Consulting Physician Neurology 01/26/18 documented as of this encounter
--- OUTSIDE RECORDS SUMMARY | 2024-04-26 09:15 | XMS_ITS | Encounter Summary ---
Author Organization [facility] Address [address] [place] [address] Phone Care Team Providers Care Technology Analyst Name Role Phone Liu Jerez MD Unavailable Albert Corbin MD Unavailable [phone] Justen Gale MD Primary Care Provider Khris Arthur MD Unavailable [phone] Ko Melendez MD Unavailable John Paul Moyer MD Unavailable Annel Rod MD Unavailable Anali MARSHALL MD, Carlos M. Unavailable Encounter Details Date Type Department Care Team (Late st Contact Info) Description 11/22/2022 Orders Only [facility] Oncology 49[address] [facility] 7th [place] [address] [place] [address] Jeanine Ba, RMA Chronic anticoagulation; [...] week 02/11/2022 How often do you attend [facility] or nondenominational services? 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 Gender Identity Not on file Sexual [...] as of this encounter Care Teams Technology Analyst Relationship Specialty Start Date End Date Justen Gale MD 2 [facility] [address] [place] [address] PCP - General 10/09/17 Liu Jerez MD Consulting Physician Gastroenterology 07/28/17 [place] [address] [address] [facility] [address] [place] [address] Consulting Physician Pulmonary Disease 08/03/17 Khris Arthur MD 4921 [facility] [address] [place] [address] Medical Oncologist/Shaker Screen Operator Medical Oncology 10/23/17 [place] [address] [address] [facility] [address] [place] [address] Surgeon Orthopedic Surgery 10/23/17 [place] [address] [address] [facility] [address] [place] [address] Consulting Physician Pain Management 10/23/17 [place] [address] [facility] [address] [place] [address] Referring Physician General Surgery 01/26/18 [place] [address] [facility] [address] [place] [address] Consulting Physician Neurology 01/26/18 documented as of this encounter
--- OUTSIDE RECORDS SUMMARY | 2024-04-26 09:16 | XMS_ITS | Encounter Summary ---
Author Organization [facility] Address [address] [place] [address] Phone Care Team Providers Care Crown Wheel Assembler Name Role Phone Liu Jerez MD Unavailable Albert Corbin MD Unavailable Justen Gale MD Primary Care Provider Khris Arthur MD Unavailable [phone] Ko Melendez MD Unavailable [phone] John Paul Moyer MD Unavailable Annel Rod MD Unavailable Anali MARSHALL MD, Carlos M. Unavailable Encounter Details Date Type Department Care Team (Late st Contact Info) Description 05/27/[address] [facility] Oncology [address] [facility] Advanced Medicine 7th [place] [address] [place] [address] Radha Mcgrath RN Malignant neoplasm [...] often do you attend chur ch or latter day services? 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 Gender Identity Not on file Sexual Orientation [...] COVID: Recovered 02/10/2022 02/10/2022 06/10/2022 3:05 AM MEMBERSHIP COUNSELOR documented as of this encounter Care Teams Crown Wheel Assembler Relationship Specialty Start Date End Date Justen Gale MD 2 [facility] [address] [place] [address] PCP - General 10/09/17 Liu Jerez MD Consulting Physician Gastroenterology 07/28/17 [place] [address] [facility] [address] [place] [address] Consulting Physician Pulmonary Disease 08/03/17 Khris Arthur MD 4921 [facility] [address] [place] [address] Medical Oncologist/Food Storeroom Clerk Medical Oncology 10/23/17 [place] [address] [facility] [address] [place] [address] Surgeon Orthopedic Surgery 10/23/17 [place] [address] [facility] [address] [place] [address] Consulting Physician Pain Management 10/23/17 [place] [address] [facility] [address] [place] [address] Referring Physician General Surgery 01/26/18 [place] [address] [address] Consulting Physician Neurology 01/26/18 documented as of this encounter
--- OUTSIDE RECORDS SUMMARY | 2024-04-26 09:16 | XMS_ITS | Encounter Summary ---
Author Organization [facility] Healthcare Address [address] [place] [address] Care Team Providers Care B Operator Name Role Phone Liu Jerez MD Unavailable [phone] Albert Corbin MD Unavailable [phone] Justen Gale MD Primary Care Provider Khris Arthur MD Unavailable [phone] Ko Melendez MD Unavailable [phone] John Paul Moyer MD Unavailable Annel Rod MD Unavailable Anali MARSHALL MD, Carlos M. Unavailable Reason for Visit * Reason Comments Coagulation Disorder Encounter Details Date Type Department Care Team (Late st Contact Info) Description 07/05/2022 10:17 PM CDT - 07/06/2022 2:01 AM CDT Emergency [facility] Emergency Department [address] [place] [address] Kirit Everett DO [facility] [place] [address] Epistaxis (Primary Dx); Chronic anticoagulation Discharge Disposition: [...] How often do you attend chur or episcopalian services? Never 02/11/2022 Do you belong to any clubs o r organizations such as buddhism groups, unions, fraternal or athletic groups, or [...] in a group home (including now)? 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 * Nosebleed (AfterCare(R) Instructions(ER/ED)) (Zambian) documented in this encounter Medications at Time of Discharge albuterol HFA (PROVENTIL HFA,VENTOLIN HFA,PROAIR HFA) 90 mcg/actuation inhaler Inhale 2 puffs every 6 (six) hours as needed for wheezing or shortness of breath 1 BD Ultra-Fine Short Pen Needle 31 gauge x 5/16 needle USE 6 TIMES DAILY DIRECTED 2 blood glucose diagnostic (Peela Ultra Test) strip 4 (four) times a [...] VIA W/C AT TIME OF DEPARTURE FROM [facility] ED. documented in this encounter ED Notes [...] gauge x 5/16 needle blood glucose diagnostic (INVERMARTuch Ultra Test) strip exemestane (AROMASIN) 25 mg [...] tendency for uric acid stone formation. Source: [facility].Last revised 05-04-2017 CBC WITH AUTO DIFFERENTIAL - [...] Dulce Danielson D.O. AC: JUDY Report ID: [id number] Reading Location: [place] [address] XR Chest 1 Vw Portable EXAM DESCRIPTION: [...] Ilana Chen M.D. SN: SN Report ID: [id number] Reading Location: [id number] BP 145/93 (BP Location: Right arm, Patient [...] (.) MARY JANE Comment:Testing performed by : [facility], [address] [facility] [place]., [address] Organism ESCHERICHIA COLI MARY JANE Urine 07/05/2022 10:4 7 PM CDT 07/06/2022 5:45 AM CDT Narrative MARY JANE - 07/08/2022 12:09 PM CDT Urine culture reflexed based upon urinalysis results. Testing performed by [facility] Microbiology Laboratory ([phone]) Organism Antibiotic Method Susceptibility Escherichia coli Ampicillin [...] ORD ERABLES Final Result Performing Organization Address [facility] Co de Phone Number MARY JANE PHAM [address] [facility] [place] [address] * (ABNORMAL) Urinalysis, microscopic only (07/05/2022 10:47 PM CDT) WBC, ur 21-50(A) 0 - 5 /HPF MARY JANE Comment:Testing performed by : [address] [address] RBC, ur 3-5(A) 0 - 2 /HPF MARY JANE Comment:Testing performed by : [address] [address] Bacteria, ur 2+(A) MARY JANE Comment:Testing performed by : [address] [address] Mucous, ur Present(A) MARY JANE Comment:Testing performed by : [address] [address] Culture Reflex Comment Reflex to urine culture will be performed. MARY JANE Comment:Testing performed by : [address] [address] Urine 07/05/2022 10:4 7 PM CDT 07/05/2022 10:50 PM CDT Kirit Everett DO LAB URINE ORDERABLES Final Res ult Performing Organization Address [facility] Co de Phone Number MARY JANE [address] [facility] Department [place] [address] * (ABNORMAL) Urinalysis reflex to microscopic and culture Urine (07/05/2022 10:47 PM CDT) Color, ur Yellow Yellow MARY JANE Comment:Testing performed by : [address] [address] Clarity, ur Clear Clear MARY JANE Comment:Testing performed by : [address] [address] Specific gravity, ur 1.020 1.003 - 1.030 MARY JANE Comment:Testing performed by : [address], [place]., [address] pH, urine 7.0 MARY JANE Comment:Testing performed by : [address], [place]., [address] Protein, ur ql Negative Negative MARY JANE Comment:Testing performed by : [address], [place]., [address] Glucose, ur ql 2+(A) Negative MARY JANE Comment:Testing performed by : [address], [place]., [address] Ketones, ur Negative Negative MARY JANE Comment:Testing performed by : [address], [place]., [address] Bilirubin, ur Negative Negative MARY JANE Comment:Testing performed by : [address], [place]., [address] Blood, ur Negative Negative MARY JANE Comment:Testing performed by : [address], [place]., [address] Urobilinogen, ur <2.0 <2.0 mg/dL MARY JANE Comment:Testing performed by : [address] [address] Nitrite, ur Negative Negative MARY JANE Comment:Testing performed by : [address] [address] Leukocyte esterase, ur 2+(A) Negative MARY JANE Comment:Testing performed by : [address] [address] UA reflex comment Reflex to microscopic UA will be performed. MARY JANE Comment:Testing performed by : [address] [address] Urine 07/05/2022 10:4 7 PM CDT 07/05/2022 [...] tendency for uric acid stone formation. Source: [facility]. Last revised 05-04-2017 us Kirit Everett DO LAB MICROBIOLOGY - GENERAL ORD ERABLES Final Result MARY JANE [address] [facility] Department [place] [address] * eGFR (07/05/2022 8:23 PM CDT) [facility] eGFR 95 mL/min/1. 73 m2 MARY JANE [...] was last reviewed 2021. Testing performed by: [facility], [address] [place] [address]., [address] Blood 07/05/2022 8:23 PM CDT 07/05/2022 8:27 PM CDT us Kirit Everett DO LAB BLOOD ORDERABLES Final Res ult MARY JANE [address] [facility] Department of Laboratories [place], [place] [id number] * (ABNORMAL) Differential, auto (07/05/2022 8:23 PM CDT) Neutrophil abs 7.3(H) 1.7 - 6.5 K/cumm MARY JANE Comment:Testing performed by : [address] [address] Imm gran abs 0.1 0.0 - 0.1 K/cumm MARY JANE Comment:Testing performed by : [address] [address] Lymphocyte abs 2.5 0.8 - 3.3 K/cumm MARY JANE Comment:Testing performed by : [address] [address] Monocyte abs 0.7 0.2 - 0.8 K/cumm MARY JANE Comment:Testing performed by : [address] [address] Eosinophil abs 0.3 0.0 - 0.5 K/cumm MARY JANE Comment:Testing performed by : [address] [address] Basophil abs 0.0 0.0 - 0.1 K/cumm MARY JANE Comment:Testing performed by : [address] [address] Neutrophil pct 67.1 % MARY JANE Comment: Interpretive Data Percent cell count reference ranges are not reported, since discordance with absolute values may lead to misinterpretation of CBC data. Current Interpretive Data was last revised on 2017. Testing performed by: [address] [address] Imm gran pct 0.6 % MARY JANE Comment: Interpretive Data Percent cell count reference ranges are not reported, since discordance with absolute values may lead to misinterpretation of CBC data. Current Interpretive Data was last revised on 2017. Testing performed by: [address] [address] Lymphocyte pct 22.9 % MARY JANE Comment: Interpretive Data Percent cell count reference ranges are not reported, since discordance with absolute values may lead to misinterpretation of CBC data. Current Interpretive Data was last revised on 2017. Testing performed by: [address] [address] Monocyte pct 6.7 % MARY JANE Comment: Interpretive Data Percent cell count reference ranges are not reported, since discordance with absolute values may lead to misinterpretation of CBC data. Current Interpretive Data was last revised on 2017. Testing performed by: [address] [address] Eosinophil pct 2.4 % MARY JANE Comment: Interpretive Data Percent cell count reference ranges are not reported, since discordance with absolute values may lead to misinterpretation of CBC data. Current Interpretive Data was last revised on 2017. Testing performed by: [address] [address] Basophil pct 0.3 % MARY JANE Comment: Interpretive Data Percent cell count reference ranges are not reported, since discordance with absolute values may lead to misinterpretation of CBC data. Current Interpretive Data was last revised on 2017. Testing performed by: [address] [address] Blood 07/05/2022 8:23 PM CDT 07/05/2022 8:27 PM CDT Kirit Everett DO LAB BLOOD ORDERABLES Final Res ult MARY JANE [address] [facility] Department of Laboratories [place], [place] [id number] * aPTT (07/05/2022 8:23 PM CDT) aPTT 31 22 - 37 sec MARY JANE Comment: Interpretive data aPTT test has not been evaluated for monitoring heparin therapy. The anti-Xa is the preferred test. Current interpretive data was last revised on 2019. Testing performed by: [address] [address] Blood 07/05/2022 8:23 PM CDT 07/05/2022 8:27 PM CDT Kirit [employer] LAB BLOOD ORDERABLES Final Res ult Performing Organization Address [facility] Co de Phone Number [facility] [address] [place] [address] * (ABNORMAL) Protime-INR (07/05/2022 8:23 PM CDT) PT 17.5(H) 12.0 - 14.6 sec MARY JANE Comment: Ref Range High Testing performed by: [address] [address] INR 1.4(H) 0.9 - 1.2 MARY JANE Comment: Ref Range High Interpretive data Oral anticoagulant therapeutic ranges: Venous thromboembolism prophylaxis or treatment: 2.0-3.0 CARDIOLOGY Standard range: 2.0-3.0 High-intensity range: 2.5-3.5 Refer to indication-specific guidelines for appropriate target ranges for prosthetic heart valve replacement. Current interpretive data was last revised on 2019. Testing performed by: [address] [address] Blood 07/05/2022 8:23 PM CDT 07/05/2022 8:27 PM CDT Kirit [employer] LAB BLOOD ORDERABLES Final Res ult Performing Organization Address [facility] de Phone Number [facility] [address] [place] [address] * (ABNORMAL) Comprehensive metabolic panel (07/05/2022 8:23 PM CDT) Sodium 138 135 - 145 mmol/L MARY JANE Comment:Testing performed by : [address] [address] Potassium, pl 4.7 3.3 - 4.9 mmol/L MARY JANE Comment:Testing performed by : [address] [address] Chloride 99 97 - 110 mmol/L MARY JANE Comment:Testing performed by : [address], [place]., [address] CO2 30 22 - 32 mmol/L MARY JANE Comment:Testing performed by : [address], [place]., [address] Anion gap 9 2 - 15 mmol/L MARY JANE Comment:Testing performed by : [address], [place]., [address] BUN 12 8 - 25 mg/dL MARY JANE Comment:Testing performed by : [address], [place]., [address] Creatinine 0.70 0.60 - 1.10 mg/dL MARY JANE Comment:Testing performed by : [address], [place]., [address] Glucose 262(H) 70 - 199 mg/dL MARY [...] was last revised 2022. Testing performed by: [address] [address] Calcium 9.5 8.5 - 10.3 mg/dL MARY JANE Comment:Testing performed by : [address] [address] Bilirubin, total 0.5 0.1 - 1.2 mg/dL MARY JANE Comment:Testing performed by : [address] [address] Protein, pl 8.6(H) 6.5 - 8.5 g/dL MARY JANE Comment:Testing performed by : [address] [address] Albumin 4.0 3.5 - 5.0 g/dL MARY JANE PHAM Comment:Testing performed by : [address] [address] Alk phos 102 40 - 130 Units/L MARY JANE PHAM Comment:Testing performed by : [address] [address] ALT 23 7 - 45 Units/L MARY JANE PHAM Comment:Testing performed by : [address] [address] AST 23 10 - 45 Units/L MARY JANE Comment:Testing performed by : [address] [address] Blood 07/05/2022 8:23 PM CDT 07/05/2022 8:27 PM CDT us Kirit Everett DO LAB BLOOD ORDERABLES Final Res ult Performing Organization Address City/State/[facility] Co de Phone Number MARY JANE [address] Department [place] [address] * (ABNORMAL) CBC with auto differential (07/05/2022 8:23 PM CDT) WBC 10.8(H) 3.8 - 9.9 K/cumm MARY JANE PHAM Comment:Testing performed by : [address] [address] Hgb 13.4 11.9 - 15.5 g/dL MARY JANE PHAM Comment:Testing performed by : [address] [address] Hct 42.6 35.6 - 45.5 % MARY JANE PHAM Comment:Testing performed by : [address] [address] Plt 310 150 - 400 K/cumm MARY JANE PHAM Comment:Testing performed by : [address] [address] MPV 9.4 9.1 - 12.3 fL MARY JANE PHAM Comment:Testing performed by : [address] [address] RBC 4.71 3.90 - 5.20 M/cumm MARY JANE Comment:Testing performed by : [address] [address] MCV 90.4 81.3 - 96.4 fL MARY JANE Comment:Testing performed by : [address] [address] MCH 28.5 27.1 - 33.3 pg MARY JANE PHAM Comment:Testing performed by : [address], [address] MCHC 31.5(L) 32.3 - 35.7 g/dL MARY JANE Comment:Testing performed by : [address], [address] RDW CV 14.2 11.1 - 14.9 % MARY JANE Comment:Testing performed by : [address], [address] RDW SD 47.1 35.7 - 48.1 fL MARY JANE Comment:Testing performed by : [address] [address] NRBC abs 0.00 0.00 - 0.01 K/cumm MARY JANE Comment:Testing performed by : [address] [address] Blood 07/05/2022 8:23 PM CDT 07/05/2022 8:27 PM CDT Kirit Everett DO LAB BLOOD ORDERABLES Final Res ult MARY JANE [address] [facility] Department [place] [address] documented in this encounter Visit [...] RN) documented in this encounter Care Teams B Operator Relationship Specialty Start Date End Date Justen Gale MD [address] [address] PCP - General 10/09/17 Liu Jerez MD Consulting Physician Gastroenterology 07/28/17 [place] [address] [facility] [address] [place] [address] Consulting Physician Pulmonary Disease 08/03/17 Khris Arthur MD [address] [facility] [address] [place] [address] Medical Oncologist/[facility] On[facility] 10/23/17 [place] [address] [facility] [address] [place] [address] Surgeon Orthopedic Surgery 10/23/17 [place] [address] [address] [facility] [address] [place] [address] Consulting Physician Pain Management 10/23/17 [place] [address] [address] [facility] [address] [place] [address] Referring Physician General Surgery 01/26/18 [place] [address] [address] [facility] [address] [place] [address] Consulting Physician Neurology 01/26/18 documented as of this encounter
--- OUTSIDE RECORDS SUMMARY | 2024-04-26 09:16 | XMS_ITS | Encounter Summary ---
Author Organization [facility] Healthcare Address [address] [place] [address] Care Team Providers Care Shopper Name Role Phone Liu Jerez MD Unavailable [phone] Albert Corbin MD Unavailable [phone] Justen Gale MD Primary Care Provider Khris Arthur MD Unavailable [phone] Ko Melendez MD Unavailable John Paul Moyer MD Unavailable Annel Rod MD Unavailable Anail MARSHALL MD, Carlos M. Unavailable Reason for Visit * Reason Comments Shortness of Breath Nausea Encounter Details Date Type Department Care Team (Late st Contact Info) Description 06/21/2022 4:25 AM CORING MACHINE OPERATOR - 06/21/2022 8:03 AM [facility] Emergency [facility] Emergency Department [address] [place] [id number] Mohini Dela Cruz MD [address] [facility] [place] [address] Melvin Sy MD [address] [facility] [place] [address] Shortness of breath (Primary Dx); Nausea; Hypertension, [...] you attend [facility] or [facility] services? Never 02/11/2022 Do you [...] on file Legal Sex Female 12:24 AM CORING MACHINE OPERATOR Gender Identity Not on file Sexual Orientation Not on file documented as of this encounter Last Filed Vital Signs Vital Sign Reading Time Taken Comments Blood Pressure 147/96 06/21/2022 8:00 AM CORING MACHINE OPERATOR Pulse 86 06/21/2022 8:00 AM CORING MACHINE OPERATOR Temperature 36.8 ??C (98.2 ??F) 06/21/2022 1 2:27 AM CORING MACHINE OPERATOR Respiratory Rate 18 06/21/2022 8:00 AM CORING MACHINE OPERATOR Oxygen Saturation 96% 06/21/2022 8: 00 AM CORING MACHINE OPERATOR Inhaled Oxygen Concentration - - Weight 132.9 kg (292 lb 15.9 oz) 2022 12:27 AM CORING MACHINE OPERATOR Height - - Body Mass Index 55.36 06/07/2022 11:06 AM CORING MACHINE OPERATOR documented in this encounter Discharge Instructions * Discharge Instructions* Melvin Sy MD - 06/21/2022 7:46 AM CORING MACHINE OPERATOR Karly, continue what you are doing by [...] follow-up please return to our emergency department. NG MACHINE OPERATOR NG MACHINE OPERATOR documented in this encounter Medications at [...] gauge x 5/16 needle blood glucose diagnostic (Self Pointuch Ultra Test) strip exemestane (AROMASIN) 25 mg [...] Course as of 06/23/22 1233 Time: 06/21 4652 Comment: Differential diagnosis includes but not limited [...] MD This examination was transcribed using the Alumnize voice recognition system without human shingler. In an effort to expedite patient care, this report has not been adjusted for typographical, grammatical, and syntax by a trained biomedical field service engineer. Clinical Impression: Shortness of breath Nausea Hypertension, unspecified type Mohini Dela Cruz MD 06/21/22 0626 Mohini Dela Cruz MD 06/23/22 1233 NG MACHINE OPERATOR NG MACHINE OPERATOR * Jennifer Carbajal RN - 06/21/2022 12:25 AM CST Pt reports feeling sick the last 2-3 days with c/o fatigue and nausea. Pt reports tonight startedhaving difficulty catching her breath. Hx of PE's, currently taking xaralto. NG MACHINE OPERATOR documented in this encounter Miscellaneous Notes * ED Re-evaluation Note - Melvin Sy MD - 06/21/2022 6:21 AM CORING MACHINE OPERATOR ED Re-evaluation Assumed patient care at 0600. [...] the medicines. Melvin Sy MD 06/21/22 0749 NG MACHINE OPERATOR documented in this encounter Plan of Treatment Not on file documented as of this encounter Procedures Procedure Name Priority Date/Time Associated Diagnosis Comments CT CHEST PE W CONTRAST ED 6:25 AM CORING MACHINE OPERATOR TROPONIN T HIGH-SENSITIVITY 4-HR Timed 06/21/2022 4:49 AM CORING MACHINE OPERATOR TROPONIN T HIGH-SENSITIVITY 2-HOUR Timed 06/21/2022 2:48 AM CORING MACHINE OPERATOR XR CHEST 1 VIEW ED 06/21/2022 1:44 AM CORING MACHINE OPERATOR TROPONIN T HIGH-SENSITIVITY SERIES (BASELINE, 2HR, 4HR, 6HR) STAT 06/21/2022 12:50 AM CORING MACHINE OPERATOR INFLUENZA A/B, RSV, AND COVID-19 PCR Routine 06/21/2022 12:50 AM CORING MACHINE OPERATOR EGFR STAT 06/21/2022 12:50 AM CORING MACHINE OPERATOR DIFFERENTIAL AUTO STAT 06/21/2022 12: 50 AM CORING MACHINE OPERATOR CBC WITH AUTO DIFFERENTIAL STAT 06/21/2022 12:50 AM CORING MACHINE OPERATOR APTT STAT 06/21/2022 12:50 AM CORING MACHINE OPERATOR PROTIME-INR STAT 06/21/2022 12:50 AM CORING MACHINE OPERATOR COMPREHENSIVE METABOLIC PANEL STAT 06/21/2022 12:50 AM CORING MACHINE OPERATOR ECG 12-LEAD STAT 06/21/2022 12:42 AM CORING MACHINE OPERATOR documented in this encounter Results * CT Chest PE (CTA) W Contrast (06/21/2022 6:25 AM CORING MACHINE OPERATOR) Anatomical Region Laterality Modality Body N/A Computed Tomogra phy 06/21/2022 6:28 AM CORING MACHINE OPERATOR Narrative 06/21/2022 6:37 AM CORING MACHINE OPERATOR EXAM DESCRIPTION: ?? CT CHEST PE (CTA) [...] AM T: ??06/21/2022 6:37 AM Report ID: [id number] Reading Location: ??[id number] Procedure Note Dulce Danielson, DO - 06/21/2022 [...] Dulce Danielson D.O. AC: JUDY Report ID: [id number] Reading Location: [place] [address] Mohini Dela Cruz MD IMG CT PROCEDURES Final R esult * (ABNORMAL) Troponin T high-sensitivity 4-hour (06/21/2022 4:49 AM CORING MACHINE OPERATOR) Trop T hs 17(H) <=14 ng/L MARY JANE PHAM Comment: Interpretive Data For further hscTnT resources including the diagnostic algorithm and an aid in interpretation, copy and paste this link: https://nrl.testcatalog.org/show/hsTrop Current Interpretive Data last revised 2020. Testing performed by: [facility], [address] [place] [address]., [address] Trop T hs delta -1 ng/L MARY JANE Comment:Testing performed by : [address] [address] Trop T hs interp Insignificant MARY JANE Comment:Testing performed by : [address] [address] Blood 06/21/2022 4:49 AM CORING MACHINE OPERATOR 06/21/2022 4:55 AM CORING MACHINE OPERATOR Mohini Dela Cruz MD LAB BLOOD ORDERABLES Deann l Result MARY JANE [address] [facility] Department [place] [address] * (ABNORMAL) Troponin T high-sensitivity 2-hour (06/21/2022 2:48 AM CORING MACHINE OPERATOR) Trop T hs 17(H) <=14 ng/L MARY JANE Comment: Interpretive Data For further hscTnT resources including the diagnostic algorithm and an aid in interpretation, copy and paste this link: https://nrl.testcatalog.org/show/hsTrop Current Interpretive Data last revised 2020. Testing performed by: [facility], [address] [place] [address]., [address] Trop T hs delta -1 ng/L MARY JANE PHAM Comment:Testing performed by : [address] [address] Trop T hs interp Insignificant MARY JANE PHAM Comment:Testing performed by : [facility], [address] [place] [address]., [address] Blood 06/21/2022 2:48 AM CORING MACHINE OPERATOR 06/21/2022 2:52 AM CORING MACHINE OPERATOR us Mohini Dela Cruz MD LAB BLOOD ORDERABLES Deann bowman Result MARY JANE [address] [facility] Department [place] [address] * XR Chest 1 Vw Portable (06/21/2022 1:44 AM CORING MACHINE OPERATOR) Anatomical Region Laterality Modality Body, Chest N/A Computed Radiogr aphy 06/21/2022 2:02 AM CORING MACHINE OPERATOR Narrative 06/21/2022 2:03 AM CORING MACHINE OPERATOR EXAM DESCRIPTION: ?? XR CHEST 1 VIEW [...] AM T: ??06/21/2022 2:03 AM Report ID: [id number] Reading Location: ??[id number] Procedure Note Ilana Chen MD - 06/21/2022 [...] Ilana Chen M.D. SN: SN Report ID: [id number] Reading Location: [id number] Mohini Dela Cruz MD IMG XR PROCEDURES Final R esult * eGFR (06/21/2022 12:50 AM CORING MACHINE OPERATOR) eGFR 95 mL/min/1. 73 m2 MARY JANE [...] last reviewed 2021. Testing performed by: [address] [address] Blood 06/21/2022 12:5 0 AM CORING MACHINE OPERATOR 06/21/2022 1:15 AM CORING MACHINE OPERATOR us Mohini Dela Cruz MD LAB BLOOD ORDERABLES Deann bowman Result [facility] [address] [facility] Department of Laboratories [place], [place] [id number] * (ABNORMAL) Differential, auto (06/21/2022 12:50 AM CORING MACHINE OPERATOR) Neutrophil abs 8.2(H) 1.7 - 6.5 K/cumm MARY JANE Comment:Testing performed by : [address] [address] Imm gran abs 0.1 0.0 - 0.1 K/cumm MARY JANE Comment:Testing performed by : [address] [address] Lymphocyte abs 3.1 0.8 - 3.3 K/cumm MARY JANE Comment:Testing performed by : [address] [address] Monocyte abs 0.8 0.2 - 0.8 K/cumm MARY JANE Comment:Testing performed by : [address] [address] Eosinophil abs 0.3 0.0 - 0.5 K/cumm MARY JANE Comment:Testing performed by : [address] [address] Basophil abs 0.1 0.0 - 0.1 K/cumm MARY JANE Comment:Testing performed by : [address] [address] Neutrophil pct 65.7 % MARY JANE Comment: Interpretive Data Percent cell count reference ranges are not reported, since discordance with absolute values may lead to misinterpretation of CBC data. Current Interpretive Data was last revised on 2017. Testing performed by: [address] [address] Imm gran pct 0.5 % MARY JANE Comment: Interpretive Data Percent cell count reference ranges are not reported, since discordance with absolute values may lead to misinterpretation of CBC data. Current Interpretive Data was last revised on 2017. Testing performed by: [address] [address] Lymphocyte pct 24.6 % MARY JANE Comment: Interpretive Data Percent cell count reference ranges are not reported, since discordance with absolute values may lead to misinterpretation of CBC data. Current Interpretive Data was last revised on 2017. Testing performed by: [address] [address] Monocyte pct 6.5 % MARY JANE Comment: Interpretive Data Percent cell count reference ranges are not reported, since discordance with absolute values may lead to misinterpretation of CBC data. Current Interpretive Data was last revised on 2017. Testing performed by: [address] [address] Eosinophil pct 2.2 % MARY JANE Comment: Interpretive Data Percent cell count reference ranges are not reported, since discordance with absolute values may lead to misinterpretation of CBC data. Current Interpretive Data was last revised on 2017. Testing performed by: [address] [address] Basophil pct 0.5 % MARY JANE Comment: Interpretive Data Percent cell count reference ranges are not reported, since discordance with absolute values may lead to misinterpretation of CBC data. Current Interpretive Data was last revised on 2017. Testing performed by: [address] [address] Blood 06/21/2022 12:5 0 AM CORING MACHINE OPERATOR 06/21/2022 1:15 AM CORING MACHINE OPERATOR Mohini Dela Cruz MD LAB BLOOD ORDERABLES Deann l Result [facility] [address] [facility] Department [place] [address] * Influenza A/B, RSV, and COVID-19 PCR Nasopharyngeal (06/21/2022 12:50 AM CORING MACHINE OPERATOR) Pathologist [facility] COVID-19 RNA Negative Negative MARY JANE Comment:Testing performed by : [address] [address] Influenza A RNA Negative Negative [facility] Comment:Testing performed by : [address] [address] Influenza B RNA Negative Negative [facility] Comment:Testing performed by : [address] [address] RSV RNA Negative Negative [facility] Comment: Interpretive data: This test is performed using the [employer] Xpert Xpress CoV-2/Flu/RSV plus assay. This is [...] last revised 2021. Testing performed by: [address] [address] Nasopharyngeal 06/21/2022 12 :50 AM CORING MACHINE OPERATOR 06/21/2022 1:04 AM CORING MACHINE OPERATOR Narrative MARY JANE - 06/21/2022 2:10 AM CORING MACHINE OPERATOR Is the Patient experiencing symptoms consistent with COVID?->Yes Date of Symptom Onset->06/19/22 Reason for testing?->Symptomatic Result [facility] Mohini Dela Cruz MD LAB MICROBIOLOGY - GENERA L ORDERABLES Final Result Performing Organization Address [facility] Co de Phone Number [address] [address] * aPTT (06/21/2022 12:50 AM CORING MACHINE OPERATOR) aPTT 29 22 - 37 sec MARY JANE Comment: Interpretive data aPTT test has not been evaluated for monitoring heparin therapy. The anti-Xa is the preferred test. Current interpretive data was last revised on 2019. Testing performed by: [address] [address] Blood 06/21/2022 12:5 0 AM CORING MACHINE OPERATOR 06/21/2022 1:15 AM CORING MACHINE OPERATOR Result [facility] Mohini Dela Cruz MD LAB BLOOD ORDERABLES Deann l Result Performing Organization Address [facility] Co de Phone Number [address] [place] [address] * Protime-INR (06/21/2022 12:50 AM CORING MACHINE OPERATOR) PT 14.1 12.0 - 14.6 sec MARY JANE Comment:Testing performed by : [address] [address] INR 1.1 0.9 - 1.2 MARY JANE Comment: Ref Range High Interpretive data Oral anticoagulant therapeutic ranges: Venous thromboembolism prophylaxis or treatment: 2.0-3.0 CARDIOLOGY Standard range: 2.0-3.0 High-intensity range: 2.5-3.5 Refer to indication-specific guidelines for appropriate target ranges for prosthetic heart valve replacement. Current interpretive data was last revised on 2019. Testing performed by: [address] [address] Blood 06/21/2022 12:5 0 AM CORING MACHINE OPERATOR 06/21/2022 1:15 AM CORING MACHINE OPERATOR Result [facility] Mohini Dela Cruz MD LAB BLOOD ORDERABLES Deann l Result Performing Organization Address [facility] de Phone Number [facility] [address] [facility] [place] [address] * (ABNORMAL) Troponin T high-sensitivity series (baseline, 2hr, 4hr, 6hr) (06/21/2022 12:50 AM CORING MACHINE OPERATOR) Trop T hs 18(H) <=14 ng/L MARY JANE Comment: Interpretive Data For further hscTnT resources including the diagnostic algorithm and an aid in interpretation, copy and paste this link: https://nrl.testcatalog.org/show/hsTrop Current Interpretive Data last revised 2020. Testing performed by: [address] [address] Blood 06/21/2022 12:5 0 AM CORING MACHINE OPERATOR 06/21/2022 1:15 AM CORING MACHINE OPERATOR Mohini Dela Cruz MD LAB BLOOD ORDERABLES Deann l Result Performing Organization Address [facility] Co de Phone Number [facility] [address] [facility] [place] [address] * (ABNORMAL) Comprehensive metabolic panel (06/21/2022 12:50 AM CORING MACHINE OPERATOR) Pathologist [facility] Sodium 138 135 - 145 mmol/L MARY JANE Comment:Testing performed by : [address] [address] Potassium, pl 3.8 3.3 - 4.9 mmol/L MARY JANE Comment:Testing performed by : [address] [address] Chloride 100 97 - 110 mmol/L MAYR JANE Comment:Testing performed by : [address] [address] CO2 28 22 - 32 mmol/L MARY JANE Comment:Testing performed by : [address] [address] Anion gap 10 2 - 15 mmol/L MARY JANE Comment:Testing performed by : [address] [place]., [address] BUN 19 8 - 25 mg/dL MARY JANE Comment:Testing performed by : [address] [address] Creatinine 0.70 0.60 - 1.10 mg/dL MARY JANE Comment:Testing performed by : [address] [address] Glucose 140 70 - 199 mg/dL MARY [...] last revised 2022. Testing performed by: [address] [address] Calcium 10.1 8.5 - 10.3 mg/dL [facility] Comment:Testing performed by : [address] [address] Bilirubin, total 0.4 0.1 - 1.2 mg/dL [facility] Comment:Testing performed by : [address] [address] Protein, pl 8.7(H) 6.5 - 8.5 g/dL MARY JANE Comment:Testing performed by : [address] [address] Albumin 4.1 3.5 - 5.0 g/dL [facility] Comment:Testing performed by : [address] [address] Alk phos 107 40 - 130 Units/L MARY JANE Comment:Testing performed by : [address] [address] ALT 22 7 - 45 Units/L MARY JANE Comment:Testing performed by : [address] [address] AST 20 10 - 45 Units/L MARY JANE PHAM Comment:Testing performed by : [address] [address] Blood 06/21/2022 12:5 0 AM CORING MACHINE OPERATOR 06/21/2022 1:15 AM CORING MACHINE OPERATOR Mohini Dela Cruz MD LAB BLOOD ORDERABLES Deann colby Result MARY JANE [address] [facility] Department [place] [address] * (ABNORMAL) CBC with auto differential (06/21/2022 12:50 AM CORING MACHINE OPERATOR) WBC 12.5(H) 3.8 - 9.9 K/cumm MARY JANE PHAM Comment:Testing performed by : [address] [address] Hgb 13.5 11.9 - 15.5 g/dL MARY JANE Comment:Testing performed by : [address] [address] Hct 42.5 35.6 - 45.5 % MARY JANE PHAM Comment:Testing performed by : [address] [address] Plt 316 150 - 400 K/cumm MARY JANE Comment:Testing performed by : [address] [address] MPV 9.4 9.1 - 12.3 fL MARY JANE PHAM Comment:Testing performed by : [address] [address] RBC 4.75 3.90 - 5.20 M/cumm MARY JANE PHAM Comment:Testing performed by : [address] [address] MCV 89.5 81.3 - 96.4 fL MARY JANE PHAM Comment:Testing performed by : [address] [address] MCH 28.4 27.1 - 33.3 pg MARY JANE PHAM Comment:Testing performed by : [address] [address] MCHC 31.8(L) 32.3 - 35.7 g/dL MARY JANE PAHM Comment:Testing performed by : [address], [address] RDW CV 14.4 11.1 - 14.9 % MARY JANE Comment:Testing performed by : [address], [address] RDW SD 46.6 35.7 - 48.1 fL MARY JANE PHAM Comment:Testing performed by : [address], [address] NRBC abs 0.00 0.00 - 0.01 K/cumm MARY JANE Comment:Testing performed by : [address], [address] Blood 06/21/2022 12:5 0 AM CORING MACHINE OPERATOR 06/21/2022 1:15 AM CORING MACHINE OPERATOR us Mohini Dela Cruz MD LAB BLOOD ORDERABLES Deann l Result Performing Organization Address [facility] Co de Phone Number [facility] [address] [facility] Department [place] [address] * ECG 12 lead (06/21/2022 12:42 AM CORING MACHINE OPERATOR) Ventricular Rate EKG/Min 94 BPM [facility] Atrial Rate 94 BPM [facility] NV-Interval (MSEC) 130 ms [facility] QRS-Interval (MSEC) 86 ms [facility] QT-Interval (MSEC) 364 ms [facility] QTc 455 ms [facility] P [place] 40 degrees [facility] R [place] 10 degrees [facility] T Lef[place] 61 degrees [facility] Diagnosis Normal sinus rhythm Normal ECG When compared with ECG of 14-MAY-2022 10:12, Premature atrial complexes are no longer Present [facility] 06/21/2022 12:4 2 AM CORING MACHINE OPERATOR 06/21/2022 7:15 PM CORING MACHINE OPERATOR us Mohini Dela Cruz MD ECG ORDERABLES Final Res ult Performing Organization Address [facility]/ZIP Co de Phone Number [facility] documented in this encounter Visit Diagnoses Diagnosis [...] oesophageal reflux disease Given 06/21/2022 5:03 AM CORING MACHINE OPERATOR 40 mg HYDROcodone-acetaminophe n (NORCO) 7.5-325 mg per tablet 1 tablet 1 tablet, oral, Once, On Mon06/21/22 at 0745, For 1 dose, Indications: PainIndications:Pain Given 06/21/2022 7:54 AM CORING MACHINE OPERATOR 1 tablet ioversoL (OPTIRAY 350) syringe 100 mL 100 mL, intravenous, Once in imaging, contrast, Starting on Mon06/21/22 at 0624, For 1 dose Contrast Given 06/21/2022 6:24 AM CORING MACHINE OPERATOR 80 mL Right Antecubital ondansetron (ZOFRAN) injection 4 mg 4 mg, intravenous, Administer over 2 Minutes, Once, On Mon06/21/22 at 0457, For 1 dose Given 06/21/2022 5:02 AM CORING MACHINE OPERATOR 4 mg ondansetron (ZOFRAN) injection 4 mg 4 mg, intravenous, Administer over 2 Minutes, Once, On Mon06/21/22 at 0740, For 1 dose, Indications: Nausea, VomitingIndications:Naus ea,Vomiting Given 06/21/2022 7:54 AM CORING MACHINE OPERATOR 4 mg documented in this encounter Active and Recently Administered Medications Times are shown in CORING MACHINE OPERATOR. Scheduled Medication Order 06/19/2022 06/20/2022 06/21/2022 famotidine [...] RT) documented in this encounter Care Teams Shopper Relationship Specialty Start Date End Date Justen Gale MD [address] [facility] [address] [place] [address] PCP - General 10/09/17 Liu Jerez MD Consulting Physician Gastroenterology 07/28/17 [place] [address] [facility] [address] [place] [address] Consulting Physician Pulmonary Disease 08/03/17 Khris Arthur MD [address] [facility] [address] [place], [place] [id number] Medical Oncologist/Musical Instrument Mechanic Medical Oncology 10/23/17 [place] [address] [facility] [address] [place] [address] Surgeon Orthopedic Surgery 10/23/17 [place] [address] [facility] [address] [place] [address] Consulting Physician Pain Management 10/23/17 [place] [address] [facility] [address] [place] [address] Referring Physician General Surgery 01/26/18 [place] [address] [facility] [address] [place] [address] Consulting Physician Neurology 01/26/18 documented as of this encounter
--- OUTSIDE RECORDS SUMMARY | 2024-04-26 09:16 | XMS_ITS | Encounter Summary ---
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 Unavailable Reason for Visit * Reason Comments Urinary Problem Encounter Details Date Type Department Care Team (Late st Contact Info) Description 04/04/2022 7:34 PM WILDLIFE VETERINARIAN - 04/05/2022 2:40 AM [facility] Emergency [facility] Emergency Department [address] [place] [id number] Mohini Dela Cruz MD [facility] [place] [address] Urinary tract infection with hematuria, site unspecified [...] often do you attend chur ch or voodoo services? Never 02/11/2022 Do you [...] on file Legal Sex Female 12:24 AM WILDLIFE VETERINARIAN Gender Identity Not on file Sexual Orientation Not on file documented as of this encounter Last Filed Vital Signs Vital Sign Reading Time Taken Comments Blood Pressure 145/84 04/05/2022 2:30 AM WILDLIFE VETERINARIAN Pulse 93 04/05/2022 2:30 AM WILDLIFE VETERINARIAN Temperature 36.8 ??C (98.3 ??F) 04/05/2022 1:25 AM CS T Respiratory Rate 20 04/05/2022 1:25 AM WILDLIFE VETERINARIAN Oxygen Saturation 95% 04/05/2022 2:30 AM WILDLIFE VETERINARIAN Inhaled Oxygen Concentration - - Weight 130.2 kg (287 lb 0.6 oz) 04/04/2022 7:10 PM WILDLIFE VETERINARIAN Height - - Body Mass Index 54.24 03/08/2022 12:14 PM WILDLIFE VETERINARIAN documented in this encounter Discharge Instructions * Discharge Instructions* Mohini Dela Cruz MD - 04/05/2022 2:30 AM WILDLIFE VETERINARIAN Take additional vicodin as needed for breakthrough pain at home. Do not take more than 8 in one day - do not take if you are drowsy. Take cipro as prescribed - take benadryl for itching Return to the ED for worsening symptoms LIFE VETERINARIAN documented in this encounter Medications at Time of Discharge albuterol HFA (PROVENTIL HFA,VENTOLIN HFA,PROAIR HFA) 90 mcg/actuation inhaler Inhale 2 puffs every 6 (six) hours as needed for wheezing or shortness of breath 1 BD Ultra-Fine Short Pen Needle 31 gauge x 5/16 needle USE 6 TIMES DAILY DIRECTED 2 blood glucose diagnostic (GRR Systemsuch Ultra Test) strip 4 (four) times a [...] - 04/04/2022 7:35 PM CST Patient took [place] 7.5/325 at approximately 1500. LIFE VETERINARIAN documented in this encounter ED Notes * [...] osteoarthritis PE (pulmonary thromboembolism) (CMS/HCC) ([facility]) Sleep apnea Past Surgical History: [...] gauge x 5/16 needle blood glucose diagnostic ([place] [employer]Touch Ultra Test) strip ciprofloxacin (CIPRO) 500 mg [...] tendency for uric acid stone formation. Source: [employer].Last revised 05-04-2017 CBC WITH AUTO DIFFERENTIAL - [...] MD This examination was transcribed using the [employer] voice recognition system without human floating derrick operator. In an effort to expedite patient care, this report has not been adjusted for typographical, grammatical, and syntax by a trained medical artist. Clinical Impression: Urinary tract infection with hematuria, site unspecified Acute back pain, unspecified back location, unspecified back pain laterality Abdominal pain Mohini Dela Cruz MD 04/05/22230 LIFE VETERINARIAN * Jo De RN - 04/04/2022 7:09 PM CST Patient arrives with reports of starting to not feel good yesterday. Patient with frequent hx of complex UTIs, sepsis, and multiple allergies to meds. Patient has blood in urine (on Xarelto) and painin the abdomen and back. LIFE VETERINARIAN documented in this encounter Plan of Treatment Not on file documented as of this encounter Procedures Procedure Name Priority Date/Time Associated Diagnosis Comments CT ABDOMEN PELVIS WO CONTRAST ED 04/04/2022 8:54 PM WILDLIFE VETERINARIAN BLOOD CULTURE STAT 04/04/2022 7:38 PM WILDLIFE VETERINARIAN ECG 12-LEAD Routine 04/04/2022 7:30 PM WILDLIFE VETERINARIAN SEPSIS LACTATE WITH REFLEX Routine 04/04/2022 7:26 PM WILDLIFE VETERINARIAN EGFR STAT 04/04/2022 7:26 PM WILDLIFE VETERINARIAN DIFFERENTIAL AUTO STAT 04/04/2022 7:2 6 PM WILDLIFE VETERINARIAN URINALYSIS AND REFLEX TO MICROSCOPIC AND CULTURE STAT 04/04/2022 7:26 PM WILDLIFE VETERINARIAN CBC WITH AUTO DIFFERENTIAL STAT 04/04/2022 7:26 PM WILDLIFE VETERINARIAN BLOOD CULTURE STAT 04/04/2022 7:26 PM WILDLIFE VETERINARIAN URINALYSIS, MICROSCOPIC ONLY STAT 04/04/2022 7:26 PM WILDLIFE VETERINARIAN PROTIME-INR Routine 04/04/2022 7:26 PM WILDLIFE VETERINARIAN URINE CULTURE STAT 04/04/2022 7:26 PM WILDLIFE VETERINARIAN COMPREHENSIVE METABOLIC PANEL STAT 04/04/2022 7:26 PM WILDLIFE VETERINARIAN documented in this encounter Results * CT Abdomen Pelvis WO Contrast (04/04/2022 8:54 PM WILDLIFE VETERINARIAN) Anatomical Region Laterality Modality Body N/A Computed Tomogra phy 04/04/2022 9:34 PM WILDLIFE VETERINARIAN Narrative 04/04/2022 9:47 PM WILDLIFE VETERINARIAN EXAM DESCRIPTION: ?? CT ABDOMEN PELVIS WO [...] Findings Committee. J Am Wang Radiol. 2017 Aug;14(8):2843-1240. THIS IS AN ELECTRONICALLY VERIFIED FINAL REPORT 04/04/2022 9:47 PM - Electronically signed by ??Juan R Johnson M.D. AT: AT D: ??04/04/2022 9:47 PM T: ??04/04/2022 9:47 PM Report ID: [id number] Reading Location: ??[id number] Procedure Note Juan R Johnson MD - [...] Findings Committee. J Am Wang Radiol. 2017 Nov;14(8):6850-7135. THIS IS AN ELECTRONICALLY VERIFIED FINAL REPORT 04/04/2022 9:47 PM - Electronically signed by Juan R Johnson M.D. AT: AT Report ID: [id number] Reading Location: [id number] Mohini Dela Cruz MD IMG CT PROCEDURES Final R esult * Blood culture Blood Hand, right (04/04/2022 7:38 PM WILDLIFE VETERINARIAN) Report Final Report: No growth MARY JANE PHAM Comment:Testing performed by : [facility], [address] [facility], [place]., [address] Blood (Hand, right) 04/04/2022 7:38 PM WILDLIFE VETERINARIAN 04/05/2022 12:34 AM WILDLIFE VETERINARIAN Narrative MARY JANE PHAM - 04/09/2022 7:00 AM WILDLIFE VETERINARIAN Received only aerobic blood culture bottle 1. [...] performance characteristics have been verified by the [facility] Microbiology Laboratory. 5. ?For questions about this culture, contact the Microbiology Laboratory at [phone]. Interpretive data was last revised on 2019. Mohini Dela Cruz MD LAB MICROBIOLOGY - GENERA L ORDERABLES Final Result Performing Organization Address [facility]/ZIP Co de Phone Number MARY JANE [address] [facility] Department [place] [address] * ECG 12 lead (04/04/2022 7:30 PM WILDLIFE VETERINARIAN) Ventricular Rate EKG/Min 93 BPM [facility] Atrial Rate 93 BPM [facility] CT-Interval (MSEC) 126 ms [facility] QRS-Interval (MSEC) 80 ms [facility] QT-Interval (MSEC) 362 ms [facility] QTc 450 ms [facility] P [place] 49 degrees [facility] R [place] -2 degrees [facility] T [place] 36 degrees [facility] Diagnosis Normal sinus rhythm Possible Left atrial enlargement Borderline ECG When compared with ECG of 08-MAR-2022 12:27, No significant change was found [facility] 04/04/2022 7:30 PM WILDLIFE VETERINARIAN 04/04/2022 10:31 PM WILDLIFE VETERINARIAN Mohini Dela Cruz MD ECG ORDERABLES Final Res ult Performing Organization Address [facility]/ZIP Co de Phone Number [facility] * eGFR (04/04/2022 7:26 PM WILDLIFE VETERINARIAN) eGFR 96 mL/min/1. 73 m2 MARY JANE [...] last reviewed 2021. Testing performed by: [facility], [address] [place] [address]., [address] Blood 04/04/2022 7:26 PM WILDLIFE VETERINARIAN 04/04/2022 7:36 PM WILDLIFE VETERINARIAN us Mohini Dela Cruz MD LAB BLOOD ORDERABLES Deann bowman Result MARY JANE [address] [facility] Department [place] [address] * (ABNORMAL) Urine culture Urine (04/04/2022 7:26 PM WILDLIFE VETERINARIAN) Report Final Report: Greater than or equal to 100,000 colonies/mL of Escherichia coli (.) MARY JANE Comment:Testing performed by : [facility], [address] [facility] [place]., [address] Organism ESCHERICHIA COLI MARY JANE Urine 04/04/2022 7:26 PM WILDLIFE VETERINARIAN 04/05/2022 12:38 AM WILDLIFE VETERINARIAN Narrative MARY JANE - 04/07/2022 11:53 AM WILDLIFE VETERINARIAN Urine culture reflexed based upon urinalysis results. Testing performed by [facility] Microbiology Laboratory ([phone]) Organism Antibiotic Method Susceptibility Escherichia coli Ampicillin [...] L ORDERABLES Final Result Performing Organization Address [facility] Co de Phone Number [address] [employer] [place] [address] * (ABNORMAL) Urinalysis, microscopic only (04/04/2022 7:26 PM WILDLIFE VETERINARIAN) WBC, ur >50(A) 0 - 5 /HPF [facility] Comment:Testing performed by : [address] [address] RBC, ur >50(A) 0 - 2 /HPF [facility] Comment:Testing performed by : [address] [address] Culture Reflex Comment Reflex to urine culture will be performed. MARY JANE Comment:Testing performed by : [address] [address] Urine 04/04/2022 7:26 PM WILDLIFE VETERINARIAN 04/04/2022 7:36 PM WILDLIFE VETERINARIAN Mohini Dela Cruz MD LAB URINE ORDERABLES Deann l Result Performing Organization Address [facility] Co de Phone Number [address] of [employer] [place] [address] * (ABNORMAL) Differential, auto (04/04/2022 7:26 PM WILDLIFE VETERINARIAN) Pathologist [facility] Neutrophil abs 9.1(H) 1.7 - 6.5 K/cumm MARY JANE Comment:Testing performed by : [address] [address] Imm gran abs 0.1 0.0 - 0.1 K/cumm [facility] Comment:Testing performed by : [address], [place]., [address] Lymphocyte abs 2.6 0.8 - 3.3 K/cumm [facility] Comment:Testing performed by : [address] [address] Monocyte abs 0.8 0.2 - 0.8 K/cumm [facility] Comment:Testing performed by : [address] [address] Eosinophil abs 0.3 0.0 - 0.5 K/cumm [facility] Comment:Testing performed by : [address] [address] Basophil abs 0.0 0.0 - 0.1 K/cumm [facility] Comment:Testing performed by : [address] [address] Neutrophil pct 70.3 % [facility] Comment: Interpretive Data Percent cell count reference ranges are not reported, since discordance with absolute values may lead to misinterpretation of CBC data. Current Interpretive Data was last revised on 2017. Testing performed by: [address] [address] Imm gran pct 0.5 % [facility] Comment: Interpretive Data Percent cell count reference ranges are not reported, since discordance with absolute values may lead to misinterpretation of CBC data. Current Interpretive Data was last revised on 2017. Testing performed by: [address] [address] Lymphocyte pct 20.4 % [facility] Comment: Interpretive Data Percent cell count reference ranges are not reported, since discordance with absolute values may lead to misinterpretation of CBC data. Current Interpretive Data was last revised on 2017. Testing performed by: [address] [address] Monocyte pct 5.9 % MARY JANE Comment: Interpretive Data Percent cell count reference ranges are not reported, since discordance with absolute values may lead to misinterpretation of CBC data. Current Interpretive Data was last revised on 2017. Testing performed by: [address] [address] Eosinophil pct 2.6 % MARY JANE Comment: Interpretive Data Percent cell count reference ranges are not reported, since discordance with absolute values may lead to misinterpretation of CBC data. Current Interpretive Data was last revised on 2017. Testing performed by: [address] [address] Basophil pct 0.3 % MARY JANE Comment: Interpretive Data Percent cell count reference ranges are not reported, since discordance with absolute values may lead to misinterpretation of CBC data. Current Interpretive Data was last revised on 2017. Testing performed by: [address] [address] Blood 04/04/2022 7:26 PM WILDLIFE VETERINARIAN 04/04/2022 7:36 PM WILDLIFE VETERINARIAN us Mohini Dela Cruz MD LAB BLOOD ORDERABLES Deann bowman Result [facility] [address] [facility] Department [place] [address] * (ABNORMAL) Protime-INR (04/04/2022 7:26 PM WILDLIFE VETERINARIAN) PT 16.9(H) 12.0 - 14.6 sec MARY JANE Comment: Ref Range High Testing performed by: [address] [address] INR 1.4(H) 0.9 - 1.2 MARY JANE Comment: Ref Range High Interpretive data Oral anticoagulant therapeutic ranges: Venous thromboembolism prophylaxis or treatment: 2.0-3.0 CARDIOLOGY Standard range: 2.0-3.0 High-intensity range: 2.5-3.5 Refer to indication-specific guidelines for appropriate target ranges for prosthetic heart valve replacement. Current interpretive data was last revised on 2019. Testing performed by: [facility], [address] [place] [address]., [address] Blood 04/04/2022 7:26 PM WILDLIFE VETERINARIAN 04/04/2022 7:36 PM WILDLIFE VETERINARIAN Mohini Dela Cruz MD LAB BLOOD ORDERABLES Deann colby Result MARY JANE [address] [facility] Department [place] [address] * Blood culture Blood Antecubital, right (04/04/2022 7:26 PM WILDLIFE VETERINARIAN) Report Final Report: No growth MARY JANE Comment:Testing performed by : [facility], [address] [facility] [place]., [address] Blood (Antecubital, right) 04/04/2022 7:26 PM WILDLIFE VETERINARIAN 04/05/2022 12:33 AM WILDLIFE VETERINARIAN Narrative MARY JANE - 04/09/2022 7:00 AM WILDLIFE VETERINARIAN 1. ?Blood cultures are incubated for 4 [...] organism identification may be performed using the Triageigene Gram-Positive Blood Culture Assay. This assay detects microbial DNA in positive blood culture broth via hybridization of target DNA to capture oligonucleotides on a microarray. This assay has been cleared by the [place] Food and Drug Administration and its performance characteristics have been verified by the [facility] Microbiology Laboratory. 5. ?For questions about this culture, contact the Microbiology Laboratory at [phone]. Interpretive data was last revised on 2019. us Mohini Dela Cruz MD LAB MICROBIOLOGY - GENERA L ORDERABLES Final Result [facility] [address] [facility] Department [place] [address] * (ABNORMAL) Urinalysis reflex to microscopic and culture Urine (04/04/2022 7:26 PM WILDLIFE VETERINARIAN) Color, ur Yellow Yellow MARY JANE Comment:Testing performed by : [address] [address] Clarity, ur Turbid(A) Clear MARY JANE Comment:Testing performed by : [address] [address] Specific gravity, ur >=1.030(A) 1.003 - 1.030 MARY JANE Comment:Testing performed by : [address] [address] pH, urine 6.5 [facility] Comment:Testing performed by : [address] [address] Protein, ur ql 3+(A) Negative MARY JANE Comment:Testing performed by : [address] [address] Glucose, ur ql Negative Negative MARY JANE Comment:Testing performed by : [address] [address] Ketones, ur Trace Negative [facility] Comment:Testing performed by : [address] [address] Bilirubin, ur 1+(A) Negative MARY JANE Comment:Testing performed by : [address] [address] Blood, ur 3+(A) Negative [facility] Comment:Testing performed by : [address] [address] Urobilinogen, ur 1.0 <2.0 mg/dL MARY JANE Comment:Testing performed by : [facility], [address] [place] [address]., [address] Nitrite, ur Positive(A) Negative MARY JANE Comment:Testing performed by : [address] [address] Leukocyte esterase, ur 3+(A) Negative MARY JANE Comment:Testing performed by : [address] [address] UA reflex comment Reflex to microscopic UA will be performed. MARY JANE Comment:Testing performed by : [facility], [address] [place] [address]., [address] Urine 04/04/2022 7:26 PM WILDLIFE VETERINARIAN 04/04/2022 7:36 PM WILDLIFE VETERINARIAN Narrative MARY JANE - 04/04/2022 7:41 PM WILDLIFE VETERINARIAN If patient unable to urinate, straight cath Urine pH is affected by diet, medications, systemic acid-base disturbances, and renal tubular function. ??pH may affect urinary stone formation. ??For example, urine pH below 6.0 may help reduce the tendency for calcium phosphate stones and pH greater than 6.0 may reduce the tendency for uric acid stone formation. Source: [facility] [employer]. Last revised 05-04-2017 Mohini Dela Cruz MD LAB MICROBIOLOGY - GENERA L ORDERABLES Final Result Performing Organization Address [facility] Co de Phone Number [facility] [address] [facility] [place] [address] * Sepsis Lactate w/ Reflex (04/04/2022 7:26 PM WILDLIFE VETERINARIAN) Sepsis Lactate 1.4 0.7 - 2.0 mmol/L MARY JANE Comment:Testing performed by : [address] [address] Blood 04/04/2022 7:26 PM WILDLIFE VETERINARIAN 04/04/2022 7:36 PM WILDLIFE VETERINARIAN Mohini Dela Cruz MD LAB BLOOD ORDERABLES Deann l Result [facility] [address] [facility] [place] [address] * (ABNORMAL) Comprehensive metabolic panel (04/04/2022 7:26 PM WILDLIFE VETERINARIAN) Sodium 139 135 - 145 mmol/L MARY JANE Comment:Testing performed by : [address] [address] Potassium, pl 4.3 3.3 - 4.9 mmol/L MARY JANE Comment:Testing performed by : [address] [address] Chloride 99 97 - 110 mmol/L MARY JANE Comment:Testing performed by : [address] [address] CO2 31 22 - 32 mmol/L MARY JANE Comment:Testing performed by : [address] [address] Anion gap 9 2 - 15 mmol/L MARY JANE Comment:Testing performed by : [address] [address] BUN 13 8 - 25 mg/dL MARY JANE Comment:Testing performed by : [address] [address] Creatinine 0.70 0.60 - 1.10 mg/dL MARY JANE Comment:Testing performed by : [address] [address] Glucose 202(H) 70 - 199 mg/dL MARY [...] was last revised 2017. Testing performed by: [address] [address] Calcium 10.5(H) 8.5 - 10.3 mg/dL MARY JANE Comment:Testing performed by : [address] [address] Bilirubin, total 0.5 0.1 - 1.2 mg/dL MARY JANE PHAM Comment:Testing performed by : [address] [address] Protein, pl 9.0(H) 6.5 - 8.5 g/dL MARY JANE PHAM Comment:Testing performed by : [address] [address] Albumin 4.4 3.5 - 5.0 g/dL MARY JANE Comment:Testing performed by : [address] [address] Alk phos 110 40 - 130 Units/L MARY JANE Comment:Testing performed by : [address] [address] ALT 25 7 - 45 Units/L MARY JANE Comment:Testing performed by : [address] [address] AST 30 10 - 45 Units/L MARY JANE Comment:Testing performed by : [address] [address] Blood 04/04/2022 7:26 PM WILDLIFE VETERINARIAN 04/04/2022 7:36 PM WILDLIFE VETERINARIAN us Mohini Dela Cruz MD LAB BLOOD ORDERABLES Deann l Result [facility] [address] [facility] Department [place] [address] * (ABNORMAL) CBC with auto differential (04/04/2022 7:26 PM WILDLIFE VETERINARIAN) WBC 12.9(H) 3.8 - 9.9 K/cumm MARY JANE PHAM Comment:Testing performed by : [address] [address] Hgb 13.4 11.9 - 15.5 g/dL MARY JANE PHAM Comment:Testing performed by : [address] [address] Hct 42.6 35.6 - 45.5 % MARY JANE PHAM Comment:Testing performed by : [address] [address] Plt 348 150 - 400 K/cumm MARY JANE PHAM Comment:Testing performed by : [address] [address] MPV 9.7 9.1 - 12.3 fL MARY JANE PHAM Comment:Testing performed by : [address] [address] RBC 4.66 3.90 - 5.20 M/cumm MARY JANE PHAM Comment:Testing performed by : [address] [address] MCV 91.4 81.3 - 96.4 fL MRAY JANE PHAM Comment:Testing performed by : [address] [address] MCH 28.8 27.1 - 33.3 pg MARY JANE PHAM Comment:Testing performed by : [address] [address] MCHC 31.5(L) 32.3 - 35.7 g/dL MARY JANE Comment:Testing performed by : [address] [address] RDW CV 14.0 11.1 - 14.9 % MARY JANE Comment:Testing performed by : [address] [address] RDW SD 47.3 35.7 - 48.1 fL MARY JANE Comment:Testing performed by : [address] [address] NRBC abs 0.00 0.00 - 0.01 K/cumm MARY JANE Comment:Testing performed by : [address] [address] Blood 04/04/2022 7:26 PM WILDLIFE VETERINARIAN 04/04/2022 7:36 PM WILDLIFE VETERINARIAN us Mohini Dela Cruz MD LAB BLOOD ORDERABLES Deann bowman Result MARY JANE [address] Department of Laboratories [place], [place] [id number] documented in this encounter Visit Diagnoses Diagnosis [...] For 1 dose Given 04/05/2022 2:03 AM WILDLIFE VETERINARIAN 50 mg fosfomycin (MONUROL) packet 3 g 3 g, oral, Once, On Mon04/04/22 at 2300, For 1 dose, Pour contents of packet into 3-4 oz of cool water, stir to dissolve and administer immediately., Indications: Urinary Tract/Genitourinary InfectionIndications:Urinary Tract/Genitourinary Infection Given 04/04/2022 11:05 PM WILDLIFE VETERINARIAN 3 g HYDROcodone-acetaminophen (NORCO) 10-325 mg per tablet 1 tablet 1 tablet, oral, Once, On Mon04/05/22 at 0142, For 1 dose, Indications: PainIndications:Pain Given 04/05/2022 2:03 AM WILDLIFE VETERINARIAN 1 tablet morphine injection 4 mg 4 mg, intravenous, Administer over 4 Minutes, Once, On Mon04/04/22 at 2045, For 1 dose Given 04/04/2022 8:56 PM WILDLIFE VETERINARIAN 4 mg ondansetron (ZOFRAN) injection 4 mg 4 mg, intravenous, Administer over 2 Minutes, Once, On Mon04/04/22 at 2045, For 1 dose Given 04/04/2022 8:56 PM WILDLIFE VETERINARIAN 4 mg sodium chloride 0.9% bolus 1,000 mL 1,000 mL, intravenous, Once, On Mon04/04/22 at 2045, For 1 dose New Bag 04/04/2022 8:56 PM WILDLIFE VETERINARIAN 1,000 mL documented in this encounter Active and Recently Administered Medications Times are shown in WILDLIFE VETERINARIAN. Scheduled Medication Order 04/03/2022 04/04/2022 04/05/2022 diphenhydrAMINE [...] COVID: Recovered 02/10/2022 02/10/2022 06/10/2022 3:05 AM WILDLIFE VETERINARIAN documented as of this encounter Care Teams Hard [employer] Drill Operator Relationship Specialty Start Date End Date Justen Gale MD [address] [facility] [address] [place] [address] PCP - General 10/09/17 Liu Jerez MD Consulting Physician Gastroenterology 07/28/17 [place] [address] [facility] [address] [place] [address] Consulting Physician Pulmonary Disease 08/03/17 Khris Arthur MD [address] [facility] [address] [place] [address] Medical Oncologist/Department Store Door Greeter Medical Oncology 10/23/17 [place] [address] [facility] [address] [place] [address] Surgeon Orthopedic Surgery 10/23/17 [place] [address] [facility] [address] [place] [address] Consulting Physician Pain Management 10/23/17 [place] [address] [facility] [address] [place] [address] Referring Physician General Surgery 01/26/18 [place] [address] [facility] [address] [place] [address] Consulting Physician Neurology 01/26/18 documented as of this encounter
--- OUTSIDE RECORDS SUMMARY | 2024-04-26 09:16 | XMS_ITS | Encounter Summary ---
Author Organization [facility] Address [address] [place] [address] Care Team Providers Care Billet Checker Name Role Phone Liu Jerez MD Unavailable Albert Corbin MD Unavailable Justen Gale MD Primary Care Provider Khris Arthur MD Unavailable [phone] Ko Melendez MD Unavailable John Paul Moyer MD Unavailable Annel Rod MD Unavailable Anali MARSHALL MD, Carlos M. Unavailable Encounter Details Date Type Department Care Team (Late st Contact Info) Description 03/21/2022 Orders Only [facility] Cardiology [address] [place] [address] Melvin Barnes MD [address] [facility] [address] [place] [address] Social History Tobacco Use Types [...] you attend chur ch or taoist services? 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 PRESS OPERATOR Gender Identity Not on file [...] Barnes MD [facility] Final Result documented in this encounter Visit Diagnoses Not on filedocumented in this encounter Additional Health Concerns Infection Onset Date Last Indicated Resolved Time COVID: Recovered 02/10/2022 02/10/2022 06/10/2022 3:05 AM FLEXO PRESS OPERATOR documented as of this encounter Care Teams Billet Checker Relationship Specialty Start Date End Date Justen Gale MD [address] [facility] [address] [place] [address] PCP - General 10/09/17 Liu Jerez MD Consulting Physician Gastroenterology 07/28/[address] [place] [address] [facility] [address] [place] [address] Consulting Physician Pulmonary Disease 08/03/17 Khris Arthur MD [address] [facility] [address] [place] [address] Medical Oncologist/Disease Education Specialist Medical Oncology 10/23/17 [place] [address] [facility] [address] [place] [address] Surgeon Orthopedic Surgery 10/23/17 [place] [address] [facility] [address] [place] [address] Consulting Physician Pain Management 10/23/[address] [place] [address] [facility] [address] [place] [address] Referring Physician General Surgery 01/26/18 [place] [address] [facility] [address] [place] [address] Consulting Physician Neurology 01/26/18 documented as of this encounter
--- OUTSIDE RECORDS SUMMARY | 2024-04-26 09:16 | XMS_ITS | Encounter Summary ---
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 Unavailable [phone] Encounter Details Date Type Department Care Team (Late st Contact Info) Description 06/20/2022 Orders Only [facility] Oncology [address] [facility] [address] 7th [place] [address] [place] [address] Radha Mcgrath RN Malignant neoplasm [...] often do you attend chur ch or adventist services? Never 02/11/2022 Do you belong to [...] in a snf (including now)? 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 Gender Identity Not on file [...] of this encounter Care Teams Field Artillery Radar Operator Relationship Specialty Start Date End Date Justen Gale MD [address] [facility] [address] [place] [address] PCP - General 10/09/17 Liu Jerez MD Consulting Physician Gastroenterology 07/28/17 [place] [address] [facility] [address] [place] [address] Consulting Physician Pulmonary Disease 08/03/17 Khris Arthur MD [address] [facility] [address] [place] [address] Medical Oncologist/Branch Sales Manager Medical Oncology 10/23/17 [place] [address] [facility] [address] [place] [address] Surgeon Orthopedic Surgery 10/23/17 [place] [address] [facility] [address] [place] [address] Consulting Physician Pain Management 10/23/17 [place] [address] [facility] [address] [place] [address] Referring Physician General Surgery 01/26/18 [place] [address] [facility] [address] [place] [address] Consulting Physician Neurology 01/26/18 documented as of this encounter
--- OUTSIDE RECORDS SUMMARY | 2024-04-26 09:16 | XMS_ITS | Encounter Summary ---
Author Organization [facility] Healthcare Address [address] [place] [address] Care Team Providers Care Survey Associate Name Role Phone Liu Jerez MD Unavailable Albert Corbin MD Unavailable [phone] Justen Gale MD Primary Care Provider [phone] Khris Arthur MD Unavailable [phone] Ko Melendez MD Unavailable [phone] John Paul Moyer MD Unavailable Annel Rod MD Unavailable Anali MARSHALL MD, Carlos M. Unavailable [phone] Reason for Visit * Reason Comments Dizziness Nausea Headache visual difficulty Encounter Details Date Type Department Care Team (Late st Contact Info) Description 05/14/2022 9:31 AM SUBSTATION OPERATOR HELPER GENERATION - 05/14/2022 12:45 PM [facility] Emergency [facility] Emergency Department [address] [place] [id number] Dung Leung MD [facility] [place] [address] Dizziness (Primary Dx); Diabetes mellitus with coincident [...] week 02/11/2022 How often do you attend [facility] or judaism services? Never 02/11/2022 Do you belong to any clubs o r organizations such as restorationism groups, unions, fraternal or athletic groups, or [...] on file Legal Sex Female 12:24 AM SUBSTATION OPERATOR HELPER GENERATION Gender Identity Not on file Sexual Orientation Not on file documented as of this encounter Last Filed Vital Signs Vital Sign Reading Time Taken Comments Blood Pressure 145/89 05/14/2022 12:45 PM SUBSTATION OPERATOR HELPER GENERATION Pulse 85 05/14/2022 12:45 PM SUBSTATION OPERATOR HELPER GENERATION Temperature 36.9 ??C (98.5 ??F) 05/14/2022 12:[address] Respiratory Rate 20 05/14/2022 12:45 PM SUBSTATION OPERATOR HELPER GENERATION Oxygen Saturation 99% 05/14/2022 12:45 PM SUBSTATION OPERATOR HELPER GENERATION Inhaled Oxygen Concentration - - Weight 128.8 kg (284 lb) 05/14/2022 8:45 AM SUBSTATION OPERATOR HELPER GENERATION Height 154.9 cm (5' 1 ) 05/14/2022 8:45 AM SUBSTATION OPERATOR HELPER GENERATION Body Mass Index 53.66 05/14/2022 8:45 AM SUBSTATION OPERATOR HELPER GENERATION documented in this encounter Discharge Instructions * Discharge Instructions* Dung Leung MD - 05/14/2022 11:46 AM SUBSTATION OPERATOR HELPER GENERATION Push fluids keep hydrated keep an eye on your blood sugar blood pressure follow- up your doctor tighten up your diabetic regimen follow-up elective MRI of your brain as indicated take an aspirin dailycontinue all your medication return any problem concern TATION OPERATOR HELPER GENERATION * Attachments The following attachments cannot be sent through Care Everywhere. * Obesity (Oil Program Compliance Specialist) (Dominican) * Dehydration (AfterCare(R) Instructions(ER/ED)) (Dominican) * Vertigo (Discharge Care) (Dominican) * Apnea Monitors (AfterCare(R) Instructions(ER/ED)) (Dominican) * Safe Use of Anticoagulants (AfterCare(R) Instructions(ER/ED)) (Dominican) documented in this encounter Medications at Time of Discharge albuterol HFA (PROVENTIL HFA,VENTOLIN HFA,PROAIR HFA) 90 mcg/actuation inhaler Inhale 2 puffs every 6 (six) hours as needed for wheezing or shortness of breath 1 BD Ultra-Fine Short Pen Needle 31 gauge x 5/16 needle USE 6 TIMES DAILY DIRECTED 2 blood glucose diagnostic (HeysanTouch Ultra Test) strip 4 (four) times a [...] 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) 08/01/2021 ??? weight and balance control agent (current) use 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 inhibitors 10/17/2019 ??? Thyroid nodule 08/07/2018 ??? Dyslipidemia ??? History of breast cancer ??? Intractable pain ??? CVA (cerebral vascular accident) ([facility]) ([facility]) 01/24/2018 ??? Anxiety and depression 11/12/2017 ??? Uncontrolled type 2 diabetes mellitus with hyperglycemia, with long-term current use of insulin([facility]) 11/06/2017 ??? Allergy to drug 11/06/2017 ??? Dysuria 10/26/2017 ??? Acute left-sided low back pain with left-sided sciatica 10/23/2017 ??? Type 2 diabetes mellitus with neurologic complication, without long-term current use of insulin([facility]/H[facility]) ([facility]) 10/23/2017 ??? Hypertension 10/23/2017 ??? Long-term current use of opiate analgesic 10/23/2017 ??? Lumbosacral spondylosis without myelopathy 10/23/2017 ??? Radiculopathy, lumbosacral region 10/23/2017 ??? Spinal stenosis of lumbar region without neurogenic claudication 10/23/2017 ??? 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 ??? Type 2 diabetes mellitus without complication ([facility]/HCC) ([facility]) ??? Constipation ??? Malignant neoplasm of upper-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 ([facility]/HCC) (HCC) 10/17/2017 ??? Cancer of overlapping sites [...] MD 05/14/22 1009 Dung Leung MD 05/14/22 0707 TATION OPERATOR HELPER GENERATION TATION OPERATOR HELPER GENERATION * Tammy Ayala RN - 05/14/2022 9:55 AM CST Pt reports 4 days hx of dizziness, room spinning, visual disturbance, and nausea, CAZARES started yesterday, pt axox4, skin pwd, Tammy Ayala RN 05/14/22 0956 TATION OPERATOR HELPER GENERATION * Kathryn Santana RN - 05/14/2022 8:42 [...] of htn, dm and is on Xarelto. TATION OPERATOR HELPER GENERATION documented in this encounter Miscellaneous Notes * ED Procedure Note - Dung Leung MD - 05/14/2022 10:16 AM SUBSTATION OPERATOR HELPER GENERATION Associated Order(s): ECG 12 lead Procedure ECG 12 lead Date/Time: 05/14/2022 10:16 AM Performed by: Dung Leung MD Authorized by: Alicia Murray PA Rate: ECG rate assessment: normal Rhythm: Rhythm: sinus rhythm Ectopy: Ectopy: PAC QRS: QRS axis: Normal QRS intervals: Normal Conduction: Conduction: normal ST segments: ST segments: Normal T waves: T waves: non-specific Dung Leung MD 05/14/22 1017 TATION OPERATOR HELPER GENERATION documented in this encounter Plan of Treatment Not on file documented as of this encounter Procedures Procedure Name Priority Date/Time Associated Diagnosis Comments TROPONIN T HIGH-SENSITIVITY 2-HOUR Timed 05/14/2022 10:38 AM SUBSTATION OPERATOR HELPER GENERATION ECG 12-LEAD STAT 05/14/2022 10:12 AM SUBSTATION OPERATOR HELPER [employer] CT HEAD WO CONTRAST ED 05/14/2022 9 :57 AM SUBSTATION OPERATOR HELPER GENERATION INFLUENZA A/B, RSV, AND COVID-19 PCR Routine 05/14/2022 9:54 AM SUBSTATION OPERATOR HELPER GENERATION URINALYSIS AND REFLEX TO MICROSCOPIC AND CULTURE STAT 05/14/2022 9:06 AM SUBSTATION OPERATOR HELPER GENERATION URINALYSIS, MICROSCOPIC ONLY STAT 05/14/2022 9:06 AM SUBSTATION OPERATOR HELPER GENERATION TROPONIN T HIGH-SENSITIVITY SERIES (BASELINE, 2HR, 4HR, 6HR) STAT 05/14/2022 8:52 AM SUBSTATION OPERATOR HELPER GENERATION EGFR STAT 05/14/2022 8:52 AM SUBSTATION OPERATOR HELPER GENERATION DIFFERENTIAL AUTO STAT 05/14/2022 8:5 2 AM SUBSTATION OPERATOR HELPER GENERATION CBC WITH AUTO DIFFERENTIAL STAT 05/14/2022 8:52 AM SUBSTATION OPERATOR HELPER GENERATION APTT STAT 05/14/2022 8:52 AM SUBSTATION OPERATOR HELPER GENERATION PROTIME-INR STAT 05/14/2022 8:52 AM SUBSTATION OPERATOR HELPER GENERATION COMPREHENSIVE METABOLIC PANEL STAT 05/14/2022 8:52 AM SUBSTATION OPERATOR HELPER GENERATION POCT GLUCOSE DEVICE Routine 05/14/2022 8 :41 AM SUBSTATION OPERATOR HELPER GENERATION documented in this encounter Results * (ABNORMAL) Troponin T high-sensitivity 2-hour (05/14/2022 10:38 AM SUBSTATION OPERATOR HELPER GENERATION) Pathologist [facility] Trop T hs 20(H) <=14 ng/L MARY JANE PHAM Comment: Interpretive Data For further hscTnT resources including the diagnostic algorithm and an aid in interpretation, copy and paste this link: https://nrl.testcatalog.org/show/hsTrop Current Interpretive Data last revised 2020. Testing performed by: [facility], [address] [place] [address]., [address] Trop T hs delta -4 ng/L MARY JANE PHAM Comment:Testing performed by : [facility], [address] [place] [address]., [address] Trop T hs interp Insignificant MARY JANE Comment:Testing performed by : [address] [address] Blood 05/14/2022 10:3 8 AM SUBSTATION OPERATOR HELPER GENERATION 05/14/2022 10:48 AM SUBSTATION OPERATOR HELPER GENERATION us Dung Leung MD LAB BLOOD ORDERABLES Final Result MARY JANE [address] [facility] Department of Laboratories [place], [place] [id number] * ECG 12 lead (05/14/2022 10:12 AM SUBSTATION OPERATOR HELPER GENERATION) [facility] Ventricular Rate EKG/Min 99 BPM [facility] Atrial Rate 99 BPM [facility] AR-Interval (MSEC) 126 ms [facility] QRS-Interval (MSEC) 90 ms [facility] QT-Interval (MSEC) 358 ms [facility] QTc 459 ms [facility] P [place] 51 degrees [facility] R [place] 1 degrees [facility] T [place] 67 degrees [facility] Diagnosis Sinus rhythm with Premature atrial complexes Possible Left atrial enlargement Nonspecific T wave abnormality Abnormal ECG When compared with ECG of 04-APR-2022 19:30, Premature atrial complexes are now Present [facility] 05/14/2022 10:1 2 AM SUBSTATION OPERATOR HELPER GENERATION 05/14/2022 2:50 PM SUBSTATION OPERATOR HELPER GENERATION us Alicia MCKEON ECG ORDERABLES Final Res ult [facility] * CT Head WO Contrast (05/14/2022 9:57 AM SUBSTATION OPERATOR HELPER GENERATION) Anatomical Region Laterality Modality Head and Neck N/A Computed Tomogra phy 05/14/2022 10:3 0 AM SUBSTATION OPERATOR HELPER GENERATION Narrative 05/14/2022 10:34 AM SUBSTATION OPERATOR HELPER GENERATION EXAM DESCRIPTION: ?? CT HEAD WO CONTRAST [...] mass effect. No recent infarct. ? The carnye-white matter differentiation is normal. ??Normal size and [...] AM T: ??05/14/2022 10:34 AM Report ID: [id number] Reading Location: ??[id number] Procedure Note Juan R Johnson MD - [...] R Johnson M.D. AT: AT Report ID: [id number] Reading Location: [id number] Alicia MCKEON IMG CT PROCEDURES Final R esult * Influenza A/B, RSV, and COVID-19 PCR Nasopharyngeal (05/14/2022 9:54 AM SUBSTATION OPERATOR HELPER GENERATION) COVID-19 RNA Negative Negative MARY JANE PHAM Comment:Testing performed by : [address] [address] Influenza A RNA Negative Negative MARY JANE Comment:Testing performed by : [address] [address] Influenza B RNA Negative Negative MARY JANE PHAM Comment:Testing performed by : [address] [address] RSV RNA Negative Negative MARY JANE Comment: Interpretive data: This test is performed using the GeneTex Xpert Xpress CoV-2/Flu/RSV plus assay. This is [...] Data last revised 2021. Testing performed by: [address] [address] Nasopharyngeal 05/14/2022 9: 54 AM SUBSTATION OPERATOR HELPER GENERATION 05/14/2022 10:01 AM SUBSTATION OPERATOR HELPER GENERATION Narrative MARY JANE - 05/14/2022 10:40 AM SUBSTATION OPERATOR HELPER GENERATION Is the Patient experiencing symptoms consistent with COVID?->Yes Date of Symptom Onset->05/12/22 Reason for testing?->Symptomatic us Alicia MCKEON LAB MICROBIOLOGY - GENERA L ORDERABLES Final Result MARY JANE [address] [facility] Department [place] [address] * Urinalysis, microscopic only (05/14/2022 9:06 AM SUBSTATION OPERATOR HELPER GENERATION) WBC, ur 0-5 0 - 5 /HPF MARY JANE Comment:Testing performed by : [address] [address] RBC, ur 0-2 0 - 2 /HPF MARY JANE Comment:Testing performed by : [address] [address] Epithelial cells, squamous, ur 1-5 0 - 5 /HPF MARY JANE Comment:Testing performed by : [address] [address] Culture Reflex Comment Reflex conditions for urine culture (WBC >10) not met. MARY JANE Comment:Testing performed by : [address] [address] Urine, clean voided 05/14/2022 9:06 AM SUBSTATION OPERATOR HELPER GENERATION 05/14/2022 9:11 AM SUBSTATION OPERATOR HELPER GENERATION Dung Leung MD LAB URINE ORDERABLES Final Result MARY JANE [address] [facility] [place] [address] * (ABNORMAL) Urinalysis reflex to microscopic and culture Urine, clean voided (05/14/2022 9:06 AM SUBSTATION OPERATOR HELPER GENERATION) Color, ur Yellow Yellow MARY JANE Comment:Testing performed by : [address] [address] Clarity, ur Clear Clear MARY JANE Comment:Testing performed by : [address] [address] Specific gravity, ur 1.025 1.003 - 1.030 MARY JANE Comment:Testing performed by : [address] [address] pH, urine 5.5 MARY JANE Comment:Testing performed by : [address] [address] Protein, ur ql Negative Negative MARY JANE Comment:Testing performed by : [address] [address] Glucose, ur ql 2+(A) Negative MARY JANE Comment:Testing performed by : [address] [address] Ketones, ur Negative Negative MARY JANE Comment:Testing performed by : [address] [address] Bilirubin, ur Negative Negative MARY JANE Comment:Testing performed by : [address] [address] Blood, ur 1+(A) Negative MARY JANE Comment:Testing performed by : [address] [address] Urobilinogen, ur 0.2 <2.0 mg/dL MARY JANE Comment:Testing performed by : [facility], [address] [place] [address]., [address] Nitrite, ur Negative Negative MARY JANE Comment:Testing performed by : [address] [address] Leukocyte esterase, ur Negative Negative MARY JANE Comment:Testing performed by : [address] [address] UA reflex comment Reflex to microscopic UA will be performed. MARY JANE Comment:Testing performed by : [facility], [address] [place] [address]., [address] Urine, clean voided 05/14/2022 9:06 AM SUBSTATION OPERATOR HELPER GENERATION 05/14/2022 9:11 AM SUBSTATION OPERATOR HELPER GENERATION Narrative MARY JANE - 05/14/2022 9:48 AM SUBSTATION OPERATOR HELPER GENERATION ?? Urine pH is affected by diet, medications, systemic acid-base disturbances, and renal tubular function. ??pH may affect urinary stone formation. ??For example, urine pH below 6.0 may help reduce the tendency for calcium phosphate stones and pH greater than 6.0 may reduce the tendency for uric acid stone formation. Source: [facility] [employer]. Last revised 05-04-2017 Dung Leung MD LAB MICROBIOLOGY - NERND ORDERABLES Final Result MARY JANE [address] [facility] Department [place] [address] * eGFR (05/14/2022 8:52 AM SUBSTATION OPERATOR HELPER GENERATION) eGFR 96 mL/min/1. 73 m2 MARY JANE [...] was last reviewed 2021. Testing performed by: [address] [address] Blood 05/14/2022 8:52 AM SUBSTATION OPERATOR HELPER GENERATION 05/14/2022 8:57 AM SUBSTATION OPERATOR HELPER GENERATION Dung Leung MD LAB BLOOD ORDERABLES Final Result [facility] [address] [facility] Department [place] [address] * (ABNORMAL) Differential, auto (05/14/2022 8:52 AM SUBSTATION OPERATOR HELPER GENERATION) Neutrophil abs 10.0(H) 1.7 - 6.5 K/cumm MARY JANE Comment:Testing performed by : [address] [address] Imm gran abs 0.1 0.0 - 0.1 K/cumm MARY JANE Comment:Testing performed by : [address] [address] Lymphocyte abs 2.6 0.8 - 3.3 K/cumm MARY JANE Comment:Testing performed by : [address] [address] Monocyte abs 1.0(H) 0.2 - 0.8 K/cumm MARY JANE Comment:Testing performed by : [address] [address] Eosinophil abs 0.0 0.0 - 0.5 K/cumm [facility] Comment:Testing performed by : [address] [address] Basophil abs 0.0 0.0 - 0.1 K/cumm [facility] Comment:Testing performed by : [address] [address] Neutrophil pct 73.1 % [facility] Comment: Interpretive Data Percent cell count reference ranges are not reported, since discordance with absolute values may lead to misinterpretation of CBC data. Current Interpretive Data was last revised on 2017. Testing performed by: [address] [address] Imm gran pct 0.6 % [facility] Comment: Interpretive Data Percent cell count reference ranges are not reported, since discordance with absolute values may lead to misinterpretation of CBC data. Current Interpretive Data was last revised on 2017. Testing performed by: [address] [address] Lymphocyte pct 19.0 % [facility] Comment: Interpretive Data Percent cell count reference ranges are not reported, since discordance with absolute values may lead to misinterpretation of CBC data. Current Interpretive Data was last revised on 2017. Testing performed by: [address] [address] Monocyte pct 7.0 % [facility] Comment: Interpretive Data Percent cell count reference ranges are not reported, since discordance with absolute values may lead to misinterpretation of CBC data. Current Interpretive Data was last revised on 2017. Testing performed by: [address] [address] Eosinophil pct 0.1 % [facility] Comment: Interpretive Data Percent cell count reference ranges are not reported, since discordance with absolute values may lead to misinterpretation of CBC data. Current Interpretive Data was last revised on 2017. Testing performed by: [address] [address] Basophil pct 0.2 % [facility] Comment: Interpretive Data Percent cell count reference ranges are not reported, since discordance with absolute values may lead to misinterpretation of CBC data. Current Interpretive Data was last revised on 2017. Testing performed by: [address] [address] Blood 05/14/2022 8:52 AM SUBSTATION OPERATOR HELPER GENERATION 05/14/2022 8:57 AM SUBSTATION OPERATOR HELPER GENERATION Dung Leung MD LAB BLOOD ORDERABLES Final Result [facility] [address] [facility] Department [place] [address] * (ABNORMAL) Comprehensive metabolic panel (05/14/2022 8:52 AM SUBSTATION OPERATOR HELPER GENERATION) Sodium 133(L) 135 - 145 mmol/L MARY JANE Comment:Testing performed by : [address] [address] Potassium, pl 4.2 3.3 - 4.9 mmol/L MARY JANE Comment:Testing performed by : [address] [address] Chloride 98 97 - 110 mmol/L MARY JANE Comment:Testing performed by : [address] [address] CO2 24 22 - 32 mmol/L MARY JANE Comment:Testing performed by : [address] [address] Anion gap 11 2 - 15 mmol/L MARY JANE Comment:Testing performed by : [address] [address] BUN 27(H) 8 - 25 mg/dL MARY JANE Comment:Testing performed by : [address] [address] Creatinine 0.70 0.60 - 1.10 mg/dL MARY JANE Comment:Testing performed by : [address] [address] Glucose 353(H) 70 - 199 mg/dL MARY [...] was last revised 2022. Testing performed by: [address] [address] Calcium 9.7 8.5 - 10.3 mg/dL MARY JANE Comment:Testing performed by : [address] [address] Bilirubin, total 0.5 0.1 - 1.2 mg/dL MARY JANE Comment:Testing performed by : [address] [address] Protein, pl 8.1 6.5 - 8.5 g/dL MARY JANE Comment:Testing performed by : [address] [address] Albumin 4.1 3.5 - 5.0 g/dL MARY JANE Comment:Testing performed by : [address] [address] Alk phos 98 40 - 130 Units/L MARY JANE Comment:Testing performed by : [address] [address] ALT 21 7 - 45 Units/L MARY JANE Comment:Testing performed by : [address] [address] AST 20 10 - 45 Units/L MARY JANE Comment:Testing performed by : [address] [address] Blood 05/14/2022 8:52 AM SUBSTATION OPERATOR HELPER GENERATION 05/14/2022 8:57 AM SUBSTATION OPERATOR HELPER GENERATION us Dung Leung MD LAB BLOOD ORDERABLES Final Result MARY JANE [address] [facility] Department [place] [address] * (ABNORMAL) CBC with auto differential (05/14/2022 8:52 AM SUBSTATION OPERATOR HELPER GENERATION) [facility] WBC 13.7(H) 3.8 - 9.9 K/cumm MARY JANE Comment:Testing performed by : [address], [address] Hgb 13.9 11.9 - 15.5 g/dL MARY JANE Comment:Testing performed by : [address], [address] Hct 42.0 35.6 - 45.5 % MARY JANE Comment:Testing performed by : [address], [address] Plt 343 150 - 400 K/cumm MARY JANE Comment:Testing performed by : [address], [address] MPV 9.9 9.1 - 12.3 fL MARY JANE Comment:Testing performed by : [address], [address] RBC 4.83 3.90 - 5.20 M/cumm MARY JANE Comment:Testing performed by : [address], [address] MCV 87.0 81.3 - 96.4 fL MARY JANE Comment:Testing performed by : [address] [address] MCH 28.8 27.1 - 33.3 pg MARY JANE Comment:Testing performed by : [address], [address] MCHC 33.1 32.3 - 35.7 g/dL MARY JANE Comment:Testing performed by : [address], [address] RDW CV 13.6 11.1 - 14.9 % MARY JANE Comment:Testing performed by : [address], [address] RDW SD 43.3 35.7 - 48.1 fL MARY JANE Comment:Testing performed by : [address], [address] NRBC abs 0.00 0.00 - 0.01 K/cumm MARY JANE Comment:Testing performed by : [facility], [address] [place] [address]., [address] Blood 05/14/2022 8:52 AM SUBSTATION OPERATOR HELPER GENERATION 05/14/2022 8:57 AM SUBSTATION OPERATOR HELPER GENERATION Dung Leung MD LAB BLOOD ORDERABLES Final Result Performing Organization Address City/[facility] Co de Phone Number MARY JANE [address] [facility] Department [place] [address] * (ABNORMAL) Troponin T high-sensitivity series (baseline, 2hr, 4hr, 6hr) (05/14/2022 8:52 AM SUBSTATION OPERATOR HELPER GENERATION) Trop T hs 24(H) <=14 ng/L MARY JANE Comment: Interpretive Data For further hscTnT resources including the diagnostic algorithm and an aid in interpretation, copy and paste this link: https://nrl.testcatalog.org/show/hsTrop Current Interpretive Data last revised 2020. Testing performed by: [address] [address] Blood 05/14/2022 8:52 AM SUBSTATION OPERATOR HELPER GENERATION 05/14/2022 8:57 AM SUBSTATION OPERATOR HELPER GENERATION Dung Leung MD LAB BLOOD ORDERABLES Final Result Performing Organization Address City/[facility] Co de Phone Number MARY JANE [address] [facility] Department [place] [address] * aPTT (05/14/2022 8:52 AM SUBSTATION OPERATOR HELPER GENERATION) aPTT 35 22 - 37 sec MARY JANE Comment: Interpretive data aPTT test has not been evaluated for monitoring heparin therapy. The anti-Xa is the preferred test. Current interpretive data was last revised on 2019. Testing performed by: [address] [address] Blood 05/14/2022 8:52 AM SUBSTATION OPERATOR HELPER GENERATION 05/14/2022 8:57 AM SUBSTATION OPERATOR HELPER GENERATION us Dung Leung MD LAB BLOOD ORDERABLES Final Result Performing Organization Address City/[facility] Co de Phone Number MARY JANE [address] [place] [address] * (ABNORMAL) Protime-INR (05/14/2022 8:52 AM SUBSTATION OPERATOR HELPER GENERATION) PT 22.2(H) 12.0 - 14.6 sec MARY JANE Comment: Ref Range High Testing performed by: [address] [address] INR 2.0(H) 0.9 - 1.2 MARY JANE Comment: Ref Range High Interpretive data Oral anticoagulant therapeutic ranges: Venous thromboembolism prophylaxis or treatment: 2.0-3.0 CARDIOLOGY Standard range: 2.0-3.0 High-intensity range: 2.5-3.5 Refer to indication-specific guidelines for appropriate target ranges for prosthetic heart valve replacement. Current interpretive data was last revised on 2019. Testing performed by: [address] [address] Blood 05/14/2022 8:52 AM SUBSTATION OPERATOR HELPER GENERATION 05/14/2022 8:57 AM SUBSTATION OPERATOR HELPER GENERATION us Dung Leung MD LAB BLOOD ORDERABLES Final Result Performing Organization Address [facility] Co de Phone Number MARY JANE [address] [place] [address] * (ABNORMAL) POCT glucose (05/14/2022 8:41 AM SUBSTATION OPERATOR HELPER GENERATION) Glucose, POC 334(H) 70 - 199 mg/dL MARY JANE Comment:Testing performed by : [address] [address] Glucose comment 1 Use This Result MARY JANE Comment:Testing performed by : [address] [address] Blood 05/14/2022 8:41 AM SUBSTATION OPERATOR HELPER GENERATION 05/14/2022 8:41 AM SUBSTATION OPERATOR HELPER GENERATION us Notinfile Unknown LAB POCT ORDERABLES - DEVICE F inal Result MARY JANE MH [address] [facility] Department [place] [address] documented in this encounter Visit Diagnoses Diagnosis [...] For 1 dose Given 05/14/2022 11:53 AM SUBSTATION OPERATOR HELPER GENERATION 4 mg sodium chloride 0.9% bolus 1,000 mL 1,000 mL, intravenous, at 1,000 mL/hr, Administer over 1 Hours, Once, On 05/14/22 at 1011, For 1 dose New Bag 05/14/2022 10:23 AM SUBSTATION OPERATOR HELPER GENERATION 1,000 mL 1000 mL/hr documented in this encounter Active and Recently Administered Medications Times are shown in SUBSTATION OPERATOR HELPER GENERATION. Scheduled Medication Order 05/12/2022 05/13/2022 05/14/2022 ondansetron [...] COVID: Recovered 02/10/2022 02/10/2022 06/10/2022 3:05 AM SUBSTATION OPERATOR HELPER GENERATION COVID: Suspected 05/14/2022 05/14/2022 05/14/2022 10:41 AM SUBSTATION OPERATOR HELPER GENERATION documented as of this encounter Care Teams Survey Associate Relationship Specialty Start Date End Date Justen Gale MD [address] [address] PCP - General 10/09/17 Liu Jerez MD Consulting Physician Gastroenterology 07/28/17 [place] [address] [address] [place] [id number] [place] [address] Consulting Physician Pulmonary Disease 08/03/17 [place] [address] [place] [address] [address] [place] [address] Medical Oncologist/Natural Resource Manager Medical Oncology 10/23/17 [place] [address] [facility] [address] [place] [address] Surgeon Orthopedic Surgery 10/23/17 [place] [address] [facility] [address] [place] [address] Consulting Physician Pain Management 10/23/17 [place] [address] [facility] [address] [place] [address] Referring Physician General Surgery 01/26/18 [place] [address] [facility] [address], [place] [address] Consulting Physician Neurology 01/26/18 documented as of this encounter
--- OUTSIDE RECORDS SUMMARY | 2024-04-26 09:16 | XMS_ITS | Encounter Summary ---
Author Organization [facility] Address [address] [place] [address] Phone Care Team Providers Care Forensic Medical Examiner Name Role Phone Liu Jeerz MD Unavailable [phone] Albert Corbin MD Unavailable Justen Gale MD Primary Care Provider [phone] Khris Arthur MD Unavailable [phone] Ko Melendez MD Unavailable [phone] John Paul Moyer MD Unavailable Annel Rod MD Unavailable Anali MARSHALL MD, Carlos M. Unavailable [phone] Encounter Details Date Type Department Care Team (Late st Contact Info) Description 03/10/2022 Orders Only [facility] Oncology [address] [facility] Advanced Medicine 7th [place] [address] [place] [address] Radha Mcgrath RN Malignant neoplasm [...] often do you attend chur ch or denominational services? Never 02/11/2022 Do you belong to [...] on file Legal Sex Female 12:24 AM SCRAP WHEELER Gender Identity Not on file Sexual Orientation [...] COVID: Recovered 02/10/2022 02/10/2022 06/10/2022 3:05 AM SCRAP WHEELER documented as of this encounter Care Teams Forensic Medical Examiner Relationship Specialty Start Date End Date Justen Gale MD 2 [facility] [address] [place] [address] PCP - General 10/09/17 Liu Jerez MD Consulting Physician Gastroenterology 07/28/17 [place] [address] [facility] [address] [place] [address] Consulting Physician Pulmonary Disease 08/03/17 Khris Arthur MD [address] [facility] [address] [place] [address] Medical Oncologist/Embedded Systems Software Developer Medical Oncology 10/23/17 [place] [address] [facility] [address] [place] [address] Surgeon Orthopedic Surgery 10/23/17 [place] [address] [facility] [address] [place] [address] Consulting Physician Pain Management 10/23/17 [place] [address] [facility] [address] [place] [address] Referring Physician General Surgery 01/26/18 [place] [address] [address] Consulting Physician Neurology 01/26/18 documented as of this encounter
--- OUTSIDE RECORDS SUMMARY | 2024-04-26 09:16 | XMS_ITS | Encounter Summary ---
Author Organization [facility] Healthcare Address [address] [place] [address] Care Team Providers Care Manufacturing Quality Manager Name Role Phone Liu Jerez MD Unavailable Albert Corbin MD Unavailable Justen Gale MD Primary Care Provider Khris Arthur MD Unavailable [phone] Ko Melendez MD Unavailable John Paul Moyer MD Unavailable [phone] Annel Rod MD Unavailable Anali MARSHALL MD, Carlos M. Unavailable Reason for Visit * Reason Comments Urinary Frequency Encounter Details Date Type Department Care Team (Late st Contact Info) Description 06/07/2022 1:00 PM DISABILITY MANAGER - 06/07/2022 1:15 PM [facility] Emergency [facility] Emergency Department [address] [place] [id number] Frequent urination (Primary Dx) Discharge Disposition: [...] often do you attend chur ch or taoism services? Never 02/11/2022 Do you belong to [...] slept in a correction (including now)? 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 Female 12:24 AM DISABILITY MANAGER Gender Identity Not on file Sexual Orientation Not on file documented as of this encounter Last Filed Vital Signs Vital Sign Reading Time Taken Comments Blood Pressure 174/102 06/07/2022 1:05 PM DISABILITY MANAGER Pulse 81 06/07/2022 1:05 PM DISABILITY MANAGER Temperature 36.4 ??C (97.5 ??F) 06/07/2022 11:[address] Respiratory Rate 20 06/07/2022 11:06 AM DISABILITY MANAGER Oxygen Saturation 98% 06/07/2022 1:05 PM DISABILITY MANAGER Inhaled Oxygen Concentration - - Weight 129.7 kg (285 lb 15 oz) 06/07/2022 11:06 AM DISABILITY MANAGER Height 154.9 cm (5' 1 ) 06/07/2022 11:06 AM DISABILITY MANAGER Body Mass Index 54.03 06/07/2022 11:06 AM DISABILITY MANAGER documented in this encounter Discharge Instructions * Discharge Instructions* Marin Tate PA - 06/07/2022 1:07 PM DISABILITY MANAGER As discussed, please follow up with your [...] symptoms, worsening of symptoms, or persistent symptoms BILITY MANAGER * Attachments The following attachments cannot be sent through Care Everywhere. * Polyuria (General Information) ([place]ao Tomean) documented in this encounter Medications at Time of Discharge albuterol HFA (PROVENTIL HFA,VENTOLIN HFA,PROAIR HFA) 90 mcg/actuation inhaler Inhale 2 puffs every 6 (six) hours as needed for wheezing or shortness of breath 1 BD Ultra-Fine Short Pen Needle 31 gauge x 5/16 needle USE 6 TIMES DAILY DIRECTED 2 blood glucose diagnostic (Kyruus Ultra Test) strip 4 (four) times a [...] tendency for uric acid stone formation. Source: [facility] [employer].Last revised 05-04-2017 CBC WITH AUTO DIFFERENTIAL - [...] R Johnson M.D. AT: AT Report ID: [id number] Reading Location: [place] [address] ED COURSE/MEDICAL DECISION MAKING Differential diagnosis included [...] nightly This examination was transcribed using the [employer]ni[employer] voice recognition system without human harvest crew supervisor. In an effort to expedite patient care, this report has not been adjusted for typographical, grammatical, and syntax by a trained medical territory manager. Marin Tate PA 06/07/22 1326 Cosigned by Lior Bowen MD at 06/09/2022 12:50 AM DISABILITY MANAGER BILITY MANAGER BILITY MANAGER Associated attestation - Lior Bowen MD - 06/09/2022 12:50 AM DISABILITY MANAGER ED Attestation I did not see this [...] is under the care of a[facility]rologist at [facility]. Pt has appt with them tomorrow. Pt also feeling dizzy. Pt SOB. BILITY MANAGER BILITY MANAGER documented in this encounter Plan of Treatment Not on file documented as of this encounter Procedures Procedure Name Priority Date/Time Associated Diagnosis Comments EGFR STAT 06/07/2022 11:26 AM DISABILITY MANAGER DIFFERENTIAL AUTO STAT 06/07/2022 11: 26 AM DISABILITY MANAGER CBC WITH AUTO DIFFERENTIAL STAT 06/07/2022 11:26 AM DISABILITY MANAGER LIPASE STAT 06/07/2022 11:26 AM DISABILITY MANAGER COMPREHENSIVE METABOLIC PANEL STAT 06/07/2022 11:26 AM DISABILITY MANAGER INFLUENZA A/B, RSV, AND COVID-19 PCR Routine 06/07/2022 11:24 AM DISABILITY MANAGER URINALYSIS AND REFLEX TO MICROSCOPIC AND CULTURE STAT 06/07/2022 11:24 AM DISABILITY MANAGER URINALYSIS, MICROSCOPIC ONLY STAT 06/07/2022 11:24 AM DISABILITY MANAGER documented in this encounter Results * eGFR (06/07/2022 11:26 AM DISABILITY MANAGER) Pathologist [facility] eGFR 95 mL/min/1. 73 m2 MARY JANE [...] last reviewed 2021. Testing performed by: [address] [address] Blood 06/07/2022 11:2 6 AM DISABILITY MANAGER 06/07/2022 11:43 AM DISABILITY MANAGER us Lior Bowen MD LAB BLOOD ORDERABLES Deann bowman Result MARY JANE [facility] Department [place] [address] * (ABNORMAL) Differential, auto (06/07/2022 11:26 AM DISABILITY MANAGER) Neutrophil abs 7.0(H) 1.7 - 6.5 K/cumm MARY JANE Comment:Testing performed by : [address] [address] Imm gran abs 0.0 0.0 - 0.1 K/cumm MARY JANE Comment:Testing performed by : [address] [address] Lymphocyte abs 2.1 0.8 - 3.3 K/cumm MARY JANE Comment:Testing performed by : [address] [address] Monocyte abs 0.6 0.2 - 0.8 K/cumm MARY JANE Comment:Testing performed by : [address] [address] Eosinophil abs 0.2 0.0 - 0.5 K/cumm MARY JANE Comment:Testing performed by : [address] [address] Basophil abs 0.0 0.0 - 0.1 K/cumm MARY JANE Comment:Testing performed by : [address] [address] Neutrophil pct 70.1 % [facility] Comment: Interpretive Data Percent cell count reference ranges are not reported, since discordance with absolute values may lead to misinterpretation of CBC data. Current Interpretive Data was last revised on 2017. Testing performed by: [address] [address] Imm gran pct 0.4 % [facility] Comment: Interpretive Data Percent cell count reference ranges are not reported, since discordance with absolute values may lead to misinterpretation of CBC data. Current Interpretive Data was last revised on 2017. Testing performed by: [address] [address] Lymphocyte pct 21.2 % [facility] Comment: Interpretive Data Percent cell count reference ranges are not reported, since discordance with absolute values may lead to misinterpretation of CBC data. Current Interpretive Data was last revised on 2017. Testing performed by: [address] [address] Monocyte pct 5.9 % [facility] Comment: Interpretive Data Percent cell count reference ranges are not reported, since discordance with absolute values may lead to misinterpretation of CBC data. Current Interpretive Data was last revised on 2017. Testing performed by: [address] [address] Eosinophil pct 2.2 % [facility] Comment: Interpretive Data Percent cell count reference ranges are not reported, since discordance with absolute values may lead to misinterpretation of CBC data. Current Interpretive Data was last revised on 2017. Testing performed by: [address] [address] Basophil pct 0.2 % [facility] Comment: Interpretive Data Percent cell count reference ranges are not reported, since discordance with absolute values may lead to misinterpretation of CBC data. Current Interpretive Data was last revised on 2017. Testing performed by: [address] [address] Blood 06/07/2022 11:2 6 AM DISABILITY MANAGER 06/07/2022 11:43 AM DISABILITY MANAGER Lior Bowen MD LAB BLOOD ORDERABLES Deann l Result Performing Organization Address City/[facility] Co de Phone Number [address] [place] [employer] [place] [address] * Lipase (06/07/2022 11:26 AM DISABILITY MANAGER) Lipase 31 10 - 99 Units/L MARY JANE Comment:Testing performed by : [address] [address] Blood (Blood, Venous) 06/07/2022 11:26 AM DISABILITY MANAGER 06/07/2022 11:43 AM DISABILITY MANAGER Lior Bowen MD LAB BLOOD ORDERABLES Deann l Result Performing Organization Address [facility] de Phone Number [address] [address] * (ABNORMAL) Comprehensive metabolic panel (06/07/2022 11:26 AM DISABILITY MANAGER) Pathologist [facility] Sodium 135 135 - 145 mmol/L MARY JANE Comment:Testing performed by : [address] [address] Potassium, pl 3.9 3.3 - 4.9 mmol/L MARY JANE Comment:Testing performed by : [address] [address] Chloride 96(L) 97 - 110 mmol/L MARY JANE Comment:Testing performed by : [address] [address] CO2 28 22 - 32 mmol/L MARY JANE Comment:Testing performed by : [address] [address] Anion gap 11 2 - 15 mmol/L MARY JANE Comment:Testing performed by : [address] [address] BUN 14 8 - 25 mg/dL MARY JANE Comment:Testing performed by : [address] [address] Creatinine 0.70 0.60 - 1.10 mg/dL MARY JANE Comment:Testing performed by : [address] [address] Glucose 162 70 - 199 mg/dL MARY [...] last revised 2022. Testing performed by: [address] [address] Calcium 10.3 8.5 - 10.3 mg/dL MARY JANE Comment:Testing performed by : [address] [address] Bilirubin, total 0.7 0.1 - 1.2 mg/dL MARY JANE Comment:Testing performed by : [address] [address] Protein, pl 9.0(H) 6.5 - 8.5 g/dL MARY JANE Comment:Testing performed by : [address] [address] Albumin 4.3 3.5 - 5.0 g/dL MARY JANE Comment:Testing performed by : [address] [address] Alk phos 116 40 - 130 Units/L MARY JANE Comment:Testing performed by : [address] [address] ALT 24 7 - 45 Units/L MARY JANE Comment:Testing performed by : [address] [address] AST 21 10 - 45 Units/L MARY JANE Comment:Testing performed by : [address] [address] Blood 06/07/2022 11:2 6 AM DISABILITY MANAGER 06/07/2022 11:43 AM DISABILITY MANAGER us Lior Bowen MD LAB BLOOD ORDERABLES Deann colby Result MARY JANE [address] [facility] [place] [address] * (ABNORMAL) CBC with auto differential (06/07/2022 11:26 AM DISABILITY MANAGER) [facility] WBC 10.0(H) 3.8 - 9.9 K/cumm MARY JANE Comment:Testing performed by : [address] [address] Hgb 14.2 11.9 - 15.5 g/dL MARY JANE Comment:Testing performed by : [address] [address] Hct 44.5 35.6 - 45.5 % MARY JANE Comment:Testing performed by : [address] [address] Plt 296 150 - 400 K/cumm MARY JANE Comment:Testing performed by : [address] [address] MPV 9.4 9.1 - 12.3 fL MARY JANE Comment:Testing performed by : [address] [address] RBC 4.95 3.90 - 5.20 M/cumm MARY JANE Comment:Testing performed by : [address] [address] MCV 89.9 81.3 - 96.4 fL MARY JANE Comment:Testing performed by : [address] [address] MCH 28.7 27.1 - 33.3 pg MARY JANE PHAM Comment:Testing performed by : [address] [address] MCHC 31.9(L) 32.3 - 35.7 g/dL MARY JANE Comment:Testing performed by : [address], [address] RDW CV 14.1 11.1 - 14.9 % MARY JANE PHAM Comment:Testing performed by : [address] [address] RDW SD 46.1 35.7 - 48.1 fL MARY JANE PHAM Comment:Testing performed by : [address] [address] NRBC abs 0.00 0.00 - 0.01 K/cumm MARY JANE PHAM Comment:Testing performed by : [address] [address] Blood (Blood, Venous) 06/07/2022 11:26 AM DISABILITY MANAGER 06/07/2022 11:43 AM DISABILITY MANAGER us Lior Bowen MD LAB BLOOD ORDERABLES Deann bowman Result MARY JANE [address] [facility] [place] [address] * (ABNORMAL) Urinalysis, microscopic only (06/07/2022 11:24 AM DISABILITY MANAGER) WBC, ur 0-5 0 - 5 /HPF MARY JANE PHAM Comment:Testing performed by : [address] [address] RBC, ur 3-5(A) 0 - 2 /HPF MARY JANE PHAM Comment:Testing performed by : [address] [address] Epithelial cells, squamous, ur 1-5 0 - 5 /HPF MARY JANE Comment:Testing performed by : [address] [address] Mucous, ur Present(A) MARY JANE Comment:Testing performed by : [address] [address] Culture Reflex Comment Reflex conditions for urine culture (WBC >10) not met. MARY JANE PHAM Comment:Testing performed by : [address] [address] Urine 06/07/2022 11:2 4 AM DISABILITY MANAGER 06/07/2022 11:43 AM DISABILITY MANAGER Lior Bowne MD LAB URINE ORDERABLES Deann l Result Performing Organization Address City/[facility]/ZIP Co de Phone Number [address] [employer] [place] [employer] [place] [address] * Influenza A/B, RSV, and COVID-19 PCR Nasopharyngeal (06/07/2022 11:24 AM DISABILITY MANAGER) COVID-19 RNA Negative Negative MARY JANE Comment:Testing performed by : [address] [address] Influenza A RNA Negative Negative [facility] Comment:Testing performed by : [address] [address] Influenza B RNA Negative Negative [facility] Comment:Testing performed by : [address] [address] RSV RNA Negative Negative [facility] Comment: Interpretive data: This test is performed using the stickKert Xpress CoV-2/Flu/RSV plus assay. This is a [...] Data last revised 2021. Testing performed by: [address] [address] Nasopharyngeal 06/07/2022 11 :24 AM DISABILITY MANAGER 06/07/2022 11:43 AM DISABILITY MANAGER Narrative [facility] - 06/07/2022 12:26 PM DISABILITY MANAGER Is the Patient experiencing symptoms consistent with COVID?->Yes Date of Symptom Onset->06/06/22 Reason for testing?->Symptomatic Lior Bowen MD LAB MICROBIOLOGY - GENERA L ORDERABLES Final Result Performing Organization Address City/[facility]/ZIP Co de Phone Number [address] Department of [employer] [place], [place] [id number] * (ABNORMAL) Urinalysis reflex to microscopic and culture Urine (06/07/2022 11:24 AM DISABILITY MANAGER) Color, ur Yellow Yellow MARY JANE Comment:Testing performed by : [address] [address] Clarity, ur Clear Clear MARY JANE Comment:Testing performed by : [address] [address] Specific gravity, ur 1.020 1.003 - 1.030 MARY JANE Comment:Testing performed by : [address], [place]., [address] pH, urine 6.0 MARY JANE Comment:Testing performed by : [address] [address] Protein, ur ql Negative Negative MARY JANE Comment:Testing performed by : [address] [address] Glucose, ur ql Negative Negative MARY JANE Comment:Testing performed by : [address], [place]., [address] Ketones, ur Negative Negative MRAY JANE Comment:Testing performed by : [address] [address] Bilirubin, ur Negative Negative MARY JANE Comment:Testing performed by : [address] [address] Blood, ur Trace(A) Negative MARY JANE Comment:Testing performed by : [address] [address] Urobilinogen, ur 0.2 <2.0 mg/dL MARY JANE Comment:Testing performed by : [address] [address] Nitrite, ur Negative Negative MARY JANE Comment:Testing performed by : [address] [address] Leukocyte esterase, ur Negative Negative MARY JANE Comment:Testing performed by : [address] [address] UA reflex comment Reflex to microscopic UA will be performed. MARY JANE Comment:Testing performed by : [address] [address] Urine 06/07/2022 11:2 4 AM DISABILITY MANAGER 06/07/2022 11:43 AM DISABILITY MANAGER Narrative MARY JANE PHAM - 06/07/2022 11:55 AM DISABILITY MANAGER ?? Urine pH is affected by diet, medications, systemic acid-base disturbances, and renal tubular function. ??pH may affect urinary stone formation. ??For example, urine pH below 6.0 may help reduce the tendency for calcium phosphate stones and pH greater than 6.0 may reduce the tendency for uric acid stone formation. Source: [employer]. Last revised 05-04-2017 us Lior Bowen MD LAB MICROBIOLOGY - GENERA L ORDERABLES Final Result MARY JANE PHAM [address] [facility] [place] [address] documented in this encounter Visit Diagnoses Diagnosis Frequent urination- Primary Urinary frequency documented in this encounter Administered Medications Inactive Administered Medications - up to 3 most recent administrations Medication Order MAR Action Action Date Dose Rate Site ondansetron (ZOFRAN) injection 4 mg 4 mg, intravenous, Administer over 2 Minutes, Once, On Mon06/07/22 at 1121, For 1 dose Given 06/07/2022 11:43 AM DISABILITY MANAGER 4 mg documented in this encounter Active and Recently Administered Medications Times are shown in DISABILITY MANAGER. Scheduled Medication Order 06/05/2022 06/06/2022 06/07/2022 ondansetron [...] COVID: Recovered 02/10/2022 02/10/2022 06/10/2022 3:05 AM DISABILITY MANAGER documented as of this encounter Care Teams Manufacturing Quality Manager Relationship Specialty Start Date End Date Justen Gale MD 2 [facility] [address] [place] [address] PCP - General 10/09/17 Liu Jerez MD Consulting Physician Gastroenterology 07/28/17 [place] [address] [facility] [address] [place] [address] Consulting Physician Pulmonary Disease 08/03/17 Khris Arthur MD [address] [facility] [address] [place] [address] Medical Oncologist/Residential Mortgage Underwriter Medical Oncology 10/23/17 [place] [address] [facility] [address] [place] [address] Surgeon Orthopedic Surgery 10/23/17 [place] [address] [facility] [address] [place] [address] Consulting Physician Pain Management 10/23/17 [place] [address] [facility] [address] [place] [address] Referring Physician General Surgery 01/26/18 [place] [address] [facility] [address] [place] [address] Consulting Physician Neurology 01/26/18 documented as of this encounter
--- OUTSIDE RECORDS SUMMARY | 2024-04-26 09:16 | XMS_ITS | Encounter Summary ---
Author Organization [facility] Address [address] [place] [address] Phone Care Team Providers Care Meat Curer Name Role Phone Liu Jerez MD Unavailable [phone] Albert Corbin MD Unavailable [phone] Justen Gale MD Primary Care Provider Khris Arthur MD Unavailable [phone] Ko Melendez MD Unavailable [phone] John Paul Moyer MD Unavailable Annel Rod MD Unavailable Anali MARSHALL MD, Carlos M. Unavailable Reason for Visit * Reason Onset Date Comments Reschedule Appointments 05/03/2022 Encounter Details Date Type Department Care Team (Late st Contact Info) Description 05/03/2022 Telephone [facility] Oncology [address] [facility] 7[address] [place] [address] [place] [address] Jeanine Ba, A Reschedule Appointments [...] slept in a halfway (including now)? 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 Female 12:24 AM FILER HELPER Gender Identity Not on file Sexual Orientation Not on file documented as of this encounter Miscellaneous Notes * Telephone Encounter - Jeanine Ba RMA - 05/03/2022 11:39 AM FILER HELPER Pt LVM requesting to randall her dexa/rov she missed. Appt's randall 06/14/22 dexa 9:10am, rov 10:00am. Called to let pt know, no answer left message with info. R HELPER documented in this encounter Plan of Treatment Not on file documented as of this encounter Visit Diagnoses Not on filedocumented in this encounter Additional Health Concerns Infection Onset Date Last Indicated Resolved Time COVID: Recovered 02/10/2022 02/10/2022 06/10/2022 3:05 AM FILER HELPER documented as of this encounter Care Teams Meat Curer Relationship Specialty Start Date End Date Justen Gale MD [address] [place] [address] PCP - General 10/09/17 Liu Jerez MD Consulting Physician Gastroenterology 07/28/17 [place] [address] [address] [facility] [address] [place] [address] Consulting Physician Pulmonary Disease 08/03/17 Khris Arthur MD [address] [facility] [address] [place] [address] Medical Oncologist/Eap Specialist Medical Oncology 10/23/17 [place] [address] [address] [facility] [address] [place] [address] Surgeon Orthopedic Surgery 10/23/17 [place] [address] [address] [facility] [address] [place] [address] Consulting Physician Pain Management 10/23/17 [place] [address] [address] [facility] [address] [place] [address] Referring Physician General Surgery 01/26/18 [place] [address] [address] [place] [address] Consulting Physician Neurology 01/26/18 documented as of this encounter
--- OUTSIDE RECORDS SUMMARY | 2024-04-26 09:16 | XMS_ITS | Encounter Summary ---
Author Organization [facility] Address [address] [facility] [place] [address] Care Team Providers Care Pediatric Urologist Name Role Phone Liu Jerez MD Unavailable Albert Corbin MD Unavailable [phone] Justen Gale MD Primary Care Provider Khris Arthur MD Unavailable [phone] Ko Melendez MD Unavailable [phone] John Paul Moyer MD Unavailable Annel Rod MD Unavailable Anali MARSHALL MD, Carlos M. Unavailable Encounter Details Date Type Department Care Team (Late st Contact Info) Description 03/19/2022 Orders Only [facility] Cardiology [address] [place] [address] Melvin Barnes MD [address] [facility] [address] [facility] [address] [place] [address] Social History Tobacco Use Types [...] often do you attend chur ch or nondenominational services? Never 02/11/2022 Do you [...] slept in a penitentiary (including now)? 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 Female 12:24 AM VOCAL ARTIST Gender Identity Not on file Sexual Orientation Not on file documented as of this encounter Plan of Treatment Not on file documented as of this encounter Procedures Procedure Name Priority Date/Time Associated Diagnosis Comments CARDIOLOGY DOCUMENT SCAN Routine 03/19/2022 documented in this encounter Results * Cardiology Document Scan (03/19/2022) Anatomical Region Laterality Modality Other us Melvin Barnes MD [facility] Final Result documented in this encounter Visit Diagnoses Not on filedocumented in this encounter Additional Health Concerns Infection Onset Date Last Indicated Resolved Time COVID: Recovered 02/10/2022 02/10/2022 06/10/2022 3:05 AM VOCAL ARTIST documented as of this encounter Care Teams Pediatric Urologist Relationship Specialty Start Date End Date Justen Gale MD [address] [facility] [address] [place] [address] PCP - General 10/09/17 Liu Jerez MD Consulting Physician Gastroenterology 07/28/17 [place] [address] [facility] [address] [place] [address] Consulting Physician Pulmonary Disease 08/03/17 Khris Arthur MD [address] [facility] [address] [place] [address] Medical Oncologist/Rabbit Breeder Medical Oncology 10/23/17 [place] [address] [facility] [address] [place] [address] Surgeon Orthopedic Surgery 10/23/17 [place] [address] [facility] [address] [place] [address] Consulting Physician Pain Management 10/23/17 [place] [address] [facility] [address] [place] [address] Referring Physician General Surgery 01/26/18 [place] [address] [facility] [address] [place] [address] Consulting Physician Neurology 01/26/18 documented as of this encounter
--- OUTSIDE RECORDS SUMMARY | 2024-04-26 09:16 | XMS_ITS | Encounter Summary ---
Author Organization [facility] Address [address] [place] [address] Phone Care Team Providers Care Rotogravure Press Operator Name Role Phone Liu Jerez MD Unavailable Albert Corbin MD Unavailable Justen Gale MD Primary Care Provider Khris Arthur MD Unavailable [phone] Ko Melendez MD Unavailable John Paul Moyer MD Unavailable Annel Rod MD Unavailable Anali MARSHALL MD, Carlos M. Unavailable Reason for Visit * Reason Onset Date Comments No Show 04/12/2022 Encounter Details Date Type Department Care Team (Late st Contact Info) Description 04/12/2022 Telephone [facility] Oncology [address] [facility] 7th [place] [address] [place] [address] Jeanine Ba, A No Show [...] often do you attend chur ch or baptism services? Never 02/11/2022 Do you belong to [...] on file Legal Sex Female 12:24 AM SHOP TEACHER Gender Identity Not on file Sexual Orientation Not on file documented as of this encounter Miscellaneous Notes * Telephone Encounter - Jeanine Ba RMA - 04/12/2022 3:18 PM SHOP TEACHER Called pt due to her missing her appt today with Rabia. No answer, left message for her to call the office to randall. Dexa/ROV TEACHER documented in this encounter Plan of Treatment Not on file documented as of this encounter Visit Diagnoses Not on filedocumented in this encounter Additional Health Concerns Infection Onset Date Last Indicated Resolved Time COVID: Recovered 02/10/2022 02/10/2022 06/10/2022 3:05 AM SHOP TEACHER documented as of this encounter Care Teams Rotogravure Press Operator Relationship Specialty Start Date End Date Justen Gale MD [address] [facility] [address] [place] [address] PCP - General 10/09/17 Liu Jerez MD Consulting Physician Gastroenterology 07/28/17 [place] [address] [id number] [place] [address] Consulting Physician Pulmonary Disease 08/03/17 Khris Arthur MD [address] [facility] [address] [place] [address] Medical Oncologist/Engineering Project Manager Medical Oncology 10/23/17 [place] [address] [address] [facility] [address] [place] [address] Surgeon Orthopedic Surgery 10/23/17 [place] [address] [facility] [address] [place] [address] Consulting Physician Pain Management 10/23/[address] [place] [address] [facility] [address] [place] [address] Referring Physician General Surgery 01/26/18 [place] [address] [facility] [address] [place] [address] Consulting Physician Neurology 01/26/18 documented as of this encounter
--- OUTSIDE RECORDS SUMMARY | 2024-04-26 09:16 | XMS_ITS | Encounter Summary ---
Author Organization [facility] Healthcare Address [address] [place] [address] Care Team Providers Care Concrete Engineering Technician Name Role Phone Liu Jerez MD Unavailable Albert Corbin MD Unavailable [phone] Justen Gale MD Primary Care Provider Khris Arthur MD Unavailable [phone] Ko Melendez MD Unavailable John Paul Moyer MD Unavailable Annel Rod MD Unavailable Anali MARSHALL MD, Carlos M. Unavailable [phone] Reason for Visit * Reason Comments Allergic Reaction Encounter Details Date Type Department Care Team (Late st Contact Info) Description 03/08/2022 1:38 PM PACKAGER MACHINE - 03/08/2022 5:17 PM [facility] Emergency [facility] Emergency Department [address] [place] [id number] Allergic reaction to drug, initial encounter [...] any clubs o r organizations such as temple groups, unions, fraternal or athletic groups, or [...] on file Legal Sex Female 12:24 AM PACKAGER MACHINE Gender Identity Not on file Sexual Orientation Not on file documented as of this encounter Last Filed Vital Signs Vital Sign Reading Time Taken Comments Blood Pressure 156/97 03/08/2022 5:07 PM PACKAGER MACHINE Pulse 76 03/08/2022 5:07 PM PACKAGER MACHINE Temperature 36.7 ??C (98 ??F) 03/08/2022 5:07 PM PACKAGER MACHINE Respiratory Rate 20 03/08/2022 5:07 PM PACKAGER MACHINE Oxygen Saturation 95% 03/08/2022 5:07 PM PACKAGER MACHINE Inhaled Oxygen Concentration - - Weight 130.2 kg (287 lb) 03/08/2022 12:14 PM PACKAGER MACHINE Height 154.9 cm (5' 1 ) 03/08/2022 12:14 PM PACKAGER MACHINE Body Mass Index 54.23 03/08/2022 12:14 PM PACKAGER MACHINE documented in this encounter Discharge Instructions * Discharge Instructions* Lila Villagran PA - 03/08/2022 5:04 PM PACKAGER MACHINE Do not take Bactrim again until you [...] symptoms, worsening of symptoms, or persistent symptoms AGER MACHINE documented in this encounter Medications at Time of Discharge albuterol HFA (PROVENTIL HFA,VENTOLIN HFA,PROAIR HFA) 90 mcg/actuation inhaler Inhale 2 puffs every 6 (six) hours as needed for wheezing or shortness of breath 1 BD Ultra-Fine Short Pen Needle 31 gauge x 5/16 needle USE 6 TIMES DAILY DIRECTED 2 blood glucose diagnostic (SmartzerTouch Ultra Test) strip 4 (four) times a [...] Hypertension Osteoarthritis osteoarthritis PE (pulmonary thromboembolism) (CMS/HCC) ([facility]) Sleep apnea Past Surgical History: [...] gauge x 5/16 needle blood glucose diagnostic (SmartzerTouch Ultra Test) strip exemestane (AROMASIN) 25 mg [...] tendency for uric acid stone formation. Source: [employer].Last revised 05-04-2017 CBC WITH AUTO DIFFERENTIAL - [...] answered. This examination was transcribed using the [employer] voice recognition system without human category consultant. In an effort to expedite patient care, this report has not been adjusted for typographical, grammatical, and syntax by a trained medical malpractice paralegal. Close outpatient follow-up with a low threshold to return has been mandated , concerning symptoms have been emphasized in detail, and this patient expresses understanding Clinical Impression: Allergic reaction to drug, initial encounter Lila Villagran PA 03/13/22 193 Cosigned by Gil Diez DO at 03/15/2022 5:57 AM PACKAGER MACHINE AGER MACHINE AGER MACHINE * Leah Coon RN - 03/08/2022 3:51 PM CST C/o nausea Leah Coon RN 03/08/221551 AGER MACHINE * Nicole Simons RN - 03/08/2022 12:15 [...] States she took benadryl before coming in. AGER MACHINE AGER MACHINE documented in this encounter Plan of Treatment Not on file documented as of this encounter Procedures Procedure Name Priority Date/Time Associated Diagnosis Comments TROPONIN T HIGH-SENSITIVITY 2-HOUR Timed 03/08/2022 2:30 PM PACKAGER MACHINE XR CHEST 1 VIEW ED 03/08/2022 12:49 PM PACKAGER MACHINE URINALYSIS AND REFLEX TO MICROSCOPIC AND CULTURE STAT 03/08/2022 12:41 PM PACKAGER MACHINE URINALYSIS, MICROSCOPIC ONLY STAT 03/08/2022 12:41 PM PACKAGER MACHINE PROTIME-INR Routine 03/08/2022 12:33 PM PACKAGER MACHINE TROPONIN T HIGH-SENSITIVITY SERIES (BASELINE, 2HR, 4HR, 6HR) STAT 03/08/2022 12:32 PM PACKAGER MACHINE EGFR STAT 03/08/2022 12:32 PM PACKAGER MACHINE DIFFERENTIAL AUTO STAT 03/08/2022 12: 32 PM PACKAGER MACHINE CBC WITH AUTO DIFFERENTIAL STAT 03/08/2022 12:32 PM PACKAGER MACHINE COMPREHENSIVE METABOLIC PANEL STAT 03/08/2022 12:32 PM PACKAGER MACHINE POCT GLUCOSE DEVICE Routine 03/08/2022 1 2:30 PM PACKAGER MACHINE ECG 12-LEAD Routine 03/08/2022 12:27 PM PACKAGER MACHINE documented in this encounter Results * (ABNORMAL) Troponin T high-sensitivity 2-hour (03/08/2022 2:30 PM PACKAGER MACHINE) Trop T hs 16(H) <=14 ng/L MARY JANE PHAM Comment: Interpretive Data For further hscTnT resources including the diagnostic algorithm and an aid in interpretation, copy and paste this link: https://nrl.testcatalog.org/show/hsTrop Current Interpretive Data last revised 2020. Testing performed by: [address] [address] Trop T hs delta -5 ng/L MARY JANE Comment:Testing performed by : [address] [address] Trop T hs interp Equivocal MARY JANE Comment:Testing performed by : [address] [address] Blood 03/08/2022 2:30 PM PACKAGER MACHINE 03/08/2022 2:33 PM PACKAGER MACHINE us Lila MCKEON LAB BLOOD ORDERABLES Final R esult Performing Organization Address City/State/[facility] Co de Phone Number MARY JANE [address] [facility] Department [place] [address] * XR Chest 1 View (03/08/2022 12:49 PM PACKAGER MACHINE) Anatomical Region Laterality Modality Body, Chest N/A Computed Radiogr aphy 03/08/2022 12:5 7 PM PACKAGER MACHINE Narrative 03/08/2022 12:58 PM PACKAGER MACHINE EXAM DESCRIPTION: ?? XR CHEST 1 VIEW [...] PM T: ??03/08/2022 12:58 PM Report ID: [id number] Reading Location: ??[id number] Procedure Note Romelia Bowen, DO - 03/08/2022 [...] Romelia Bowen D.O. PS: PS Report ID: [id number] Reading Location: [id number] Lila MCKEON IMG XR PROCEDURES Final Resu lt * (ABNORMAL) Urinalysis, microscopic only (03/08/2022 12:41 PM PACKAGER MACHINE) WBC, ur 0-5 0 - 5 /HPF MARY JANE PHAM Comment:Testing performed by : [address] [address] RBC, ur 0-2 0 - 2 /HPF MARY JANE PHAM Comment:Testing performed by : [address] [address] Epithelial cells, squamous, ur 1-5 0 - 5 /HPF MARY JANE PHAM Comment:Testing performed by : [address] [address] Mucous, ur Present(A) MARY JANE PHAM Comment:Testing performed by : [address] [address] Hyaline casts, ur 1-5 0 - 10 /LPF MARY JANE Comment:Testing performed by : [address] [address] Culture Reflex Comment Reflex conditions for urine culture (WBC >10) not met. MARY JANE Comment:Testing performed by : [address] [address] Urine 03/08/2022 12:4 1 PM PACKAGER MACHINE 03/08/2022 12:54 PM PACKAGER MACHINE us Lila MCKEON LAB URINE ORDERABLES Final R esult MARY JANE PHAM [facility] Department [place] [address] * (ABNORMAL) Urinalysis reflex to microscopic and culture Urine (03/08/2022 12:41 PM PACKAGER MACHINE) Color, ur Yellow Yellow MARY JANE PHAM Comment:Testing performed by : [address] [address] Clarity, ur Clear Clear MARY JANE PHAM Comment:Testing performed by : [address] [address] Specific gravity, ur 1.015 1.003 - 1.030 MARY JANE PHAM Comment:Testing performed by : [address] [address] pH, urine 5.5 MARY JANE Comment:Testing performed by : [address] [address] Protein, ur ql Negative Negative MARY JANE Comment:Testing performed by : [facility], [address] [place] [address], [place]., [address] Glucose, ur ql Trace(A) Negative MARY JANE Comment:Testing performed by : [facility], [address] [place] [address], [place]., [address] Ketones, ur Trace Negative MARY JANE Comment:Testing performed by : [address], [place]., [address] Bilirubin, ur Negative Negative MARY JANE Comment:Testing performed by : [facility], [address] [place] [address], [place]., [address] Blood, ur Trace(A) Negative MARY JANE Comment:Testing performed by : [address], [place]., [address] Urobilinogen, ur 0.2 <2.0 mg/dL MARY JANE Comment:Testing performed by : [address], [place]., [address] Nitrite, ur Negative Negative MARY JANE Comment:Testing performed by : [facility], [address] [place] [address], [place]., [address] Leukocyte esterase, ur Negative Negative MARY JANE Comment:Testing performed by : [address], [place]., [address] UA reflex comment Reflex to microscopic UA will be performed. MARY JANE Comment:Testing performed by : [address], [place]., [address] Urine 03/08/2022 12:4 1 PM PACKAGER MACHINE 03/08/2022 12:54 PM PACKAGER MACHINE Narrative MARY JANE - 03/08/2022 1:02 PM PACKAGER MACHINE ?? Urine pH is affected by diet, medications, systemic acid-base disturbances, and renal tubular function. ??pH may affect urinary stone formation. ??For example, urine pH below 6.0 may help reduce the tendency for calcium phosphate stones and pH greater than 6.0 may reduce the tendency for uric acid stone formation. Source: [employer]. Last revised 05-04-2017 us Lila MCKEON LAB MICROBIOLOGY - GENERAL O RDERABLES Final Result [facility] [address] [facility] Department [place] [address] * (ABNORMAL) Protime-INR (03/08/2022 12:33 PM PACKAGER MACHINE) PT 19.6(H) 12.0 - 14.6 sec MARY JANE Comment: Ref Range High Testing performed by: [facility], [address] [place] [address]., [address] INR 1.6(H) 0.9 - 1.2 MARY JANE Comment: Ref Range High Interpretive data Oral anticoagulant therapeutic ranges: Venous thromboembolism prophylaxis or treatment: 2.0-3.0 CARDIOLOGY Standard range: 2.0-3.0 High-intensity range: 2.5-3.5 Refer to indication-specific guidelines for appropriate target ranges for prosthetic heart valve replacement. Current interpretive data was last revised on 2019. Testing performed by: [facility], [address] [place] [address]., [address] Blood 03/08/2022 12:3 3 PM PACKAGER MACHINE 03/08/2022 12:54 PM PACKAGER MACHINE Gil Diez DO LAB BLOOD ORDERABLES Final Result [facility] [address] [facility] [place] [address] * eGFR (03/08/2022 12:32 PM PACKAGER MACHINE) Pathologist [facility] eGFR 96 mL/min/1. 73 m2 MARY [...] was last reviewed 2021. Testing performed by: [address] [address] Blood 03/08/2022 12:3 2 PM PACKAGER MACHINE 03/08/2022 12:54 PM PACKAGER MACHINE us Lila MCKEON LAB BLOOD ORDERABLES Final R esult [facility] [address] [facility] Department [place] [address] * (ABNORMAL) Differential, auto (03/08/2022 12:32 PM PACKAGER MACHINE) Neutrophil abs 6.6(H) 1.7 - 6.5 K/cumm MARY JANE Comment:Testing performed by : [address] [address] Imm gran abs 0.1 0.0 - 0.1 K/cumm MARY JANE Comment:Testing performed by : [address] [address] Lymphocyte abs 2.3 0.8 - 3.3 K/cumm MARY JANE Comment:Testing performed by : [address] [address] Monocyte abs 0.7 0.2 - 0.8 K/cumm MARY JANE Comment:Testing performed by : [address] [address] Eosinophil abs 0.1 0.0 - 0.5 K/cumm MARY JANE Comment:Testing performed by : [address] [address] Basophil abs 0.0 0.0 - 0.1 K/cumm MARY JANE Comment:Testing performed by : [address] [address] Neutrophil pct 67.5 % MARY JANE Comment: Interpretive Data Percent cell count reference ranges are not reported, since discordance with absolute values may lead to misinterpretation of CBC data. Current Interpretive Data was last revised on 2017. Testing performed by: [address] [address] Imm gran pct 0.5 % MARY JANE Comment: Interpretive Data Percent cell count reference ranges are not reported, since discordance with absolute values may lead to misinterpretation of CBC data. Current Interpretive Data was last revised on 2017. Testing performed by: [address] [address] Lymphocyte pct 23.2 % MARY JANE Comment: Interpretive Data Percent cell count reference ranges are not reported, since discordance with absolute values may lead to misinterpretation of CBC data. Current Interpretive Data was last revised on 2017. Testing performed by: [address] [address] Monocyte pct 7.3 % MARY JANE Comment: Interpretive Data Percent cell count reference ranges are not reported, since discordance with absolute values may lead to misinterpretation of CBC data. Current Interpretive Data was last revised on 2017. Testing performed by: [address] [address] Eosinophil pct 1.2 % MARY JANE Comment: Interpretive Data Percent cell count reference ranges are not reported, since discordance with absolute values may lead to misinterpretation of CBC data. Current Interpretive Data was last revised on 2017. Testing performed by: [address] [address] Basophil pct 0.3 % MARY JANE Comment: Interpretive Data Percent cell count reference ranges are not reported, since discordance with absolute values may lead to misinterpretation of CBC data. Current Interpretive Data was last revised on 2017. Testing performed by: [address] [address] Blood 03/08/2022 12:3 2 PM PACKAGER MACHINE 03/08/2022 12:54 PM PACKAGER MACHINE Lila MCKEON LAB BLOOD ORDERABLES Final R esult Performing Organization Address [facility] Co de Phone Number MARY JANE [address] [facility] Department [place] [address] * (ABNORMAL) Troponin T high-sensitivity series (baseline, 2hr, 4hr, 6hr) (03/08/2022 12:32 PM PACKAGER MACHINE) Trop T hs 21(H) <=14 ng/L MARY JANE PHAM Comment: Interpretive Data For further hscTnT resources including the diagnostic algorithm and an aid in interpretation, copy and paste this link: https://nrl.testcatalog.org/show/hsTrop Current Interpretive Data last revised 2020. Testing performed by: [address] [address] Blood 03/08/2022 12:3 2 PM PACKAGER MACHINE 03/08/2022 12:54 PM PACKAGER MACHINE Lila MCKEON LAB BLOOD ORDERABLES Final R esult Performing Organization Address City/[facility] Co de Phone Number MARY JANE [facility] Department [place] [address] * (ABNORMAL) Comprehensive metabolic panel (03/08/2022 12:32 PM PACKAGER MACHINE) Sodium 135 135 - 145 mmol/L MARY JANE PHAM Comment:Testing performed by : [address] [address] Potassium, pl 4.1 3.3 - 4.9 mmol/L MARY JANE PHAM Comment:Testing performed by : [address] [address] Chloride 96(L) 97 - 110 mmol/L MARY JANE PHAM Comment:Testing performed by : [address] [address] CO2 29 22 - 32 mmol/L MARY JANE Comment:Testing performed by : [address] [address] Anion gap 10 2 - 15 mmol/L MARY JANE Comment:Testing performed by : [address] [address] BUN 14 8 - 25 mg/dL MARY JANE Comment:Testing performed by : [address] [address] Creatinine 0.70 0.60 - 1.10 mg/dL [facility] Comment:Testing performed by : [address] [address] Glucose 281(H) 70 - 199 mg/dL MARY [...] was last revised 2017. Testing performed by: [address] [address] Calcium 9.9 8.5 - 10.3 mg/dL MARY JANE Comment:Testing performed by : [address] [address] Bilirubin, total 0.5 0.1 - 1.2 mg/dL [facility] Comment:Testing performed by : [address] [address] Protein, pl 7.8 6.5 - 8.5 g/dL MARY JANE Comment:Testing performed by : [address] [address] Albumin 4.0 3.5 - 5.0 g/dL MARY JANE Comment:Testing performed by : [address] [address] Alk phos 112 40 - 130 Units/L MARY JANE PHAM Comment:Testing performed by : [address] [address] ALT 19 7 - 45 Units/L MARY JANE PHAM Comment:Testing performed by : [address] [address] AST 18 10 - 45 Units/L MARY JANE PHAM Comment:Testing performed by : [address] [address] Blood 03/08/2022 12:3 2 PM PACKAGER MACHINE 03/08/2022 12:54 PM PACKAGER MACHINE us Lila MCKEON LAB BLOOD ORDERABLES Final R esult MARY JANE [facility] Department [place] [address] * (ABNORMAL) CBC with auto differential (03/08/2022 12:32 PM PACKAGER MACHINE) Pathologist [facility] WBC 9.8 3.8 - 9.9 K/cumm MARY JANE PHAM Comment:Testing performed by : [address] [address] Hgb 13.1 11.9 - 15.5 g/dL MARY JANE PHAM Comment:Testing performed by : [address] [address] Hct 42.2 35.6 - 45.5 % MARY JANE PHAM Comment:Testing performed by : [address] [address] Plt 309 150 - 400 K/cumm MARY JANE PHAM Comment:Testing performed by : [address] [address] MPV 9.8 9.1 - 12.3 fL MARY JANE PHAM Comment:Testing performed by : [address] [address] RBC 4.62 3.90 - 5.20 M/cumm MARY JANE PHAM Comment:Testing performed by : [address] [address] MCV 91.3 81.3 - 96.4 fL MARY JANE PHAM Comment:Testing performed by : [address] [address] MCH 28.4 27.1 - 33.3 pg MARY JANE PHAM Comment:Testing performed by : [address] [address] MCHC 31.0(L) 32.3 - 35.7 g/dL MARY JANE PHAM Comment:Testing performed by : [address] [address] RDW CV 13.8 11.1 - 14.9 % MARY JANE Comment:Testing performed by : [address] [address] RDW SD 46.5 35.7 - 48.1 fL MARY JANE Comment:Testing performed by : [address] [address] NRBC abs 0.00 0.00 - 0.01 K/cumm MARY JANE PHAM Comment:Testing performed by : [address] [address] Blood 03/08/2022 12:3 2 PM PACKAGER MACHINE 03/08/2022 12:54 PM PACKAGER MACHINE us Lila MCKEON LAB BLOOD ORDERABLES Final R esult MARY JANE [address] [facility] Department of Laboratories [place], [place] [address] * (ABNORMAL) POCT glucose (03/08/2022 12:30 PM PACKAGER MACHINE) [facility] Glucose, POC 289(H) 70 - 199 mg/dL MARY JANE Comment:Testing performed by : [address] [address] Glucose comment 1 Use This Result MARY JANE Comment:Testing performed by : [address] [address] Blood 03/08/2022 12:3 0 PM PACKAGER MACHINE 03/08/2022 12:30 PM PACKAGER MACHINE us Notinfile Unknown LAB POCT ORDERABLES - DEVICE F inal Result Performing Organization Address City/[facility]/ZIP Co de Phone Number MARY JANE [address] Department [place] [address] * ECG 12 lead (03/08/2022 12:27 PM PACKAGER MACHINE) Pathologist [facility] Ventricular Rate EKG/Min 88 BPM [facility] Atrial Rate 88 BPM [facility] AL-Interval (MSEC) 126 ms [facility] QRS-Interval (MSEC) 82 ms [facility] QT-Interval (MSEC) 366 ms [facility] QTc 442 ms [facility] P [place] 35 degrees [facility] R [place] 1 degrees [facility] T [place] 35 degrees [facility] Diagnosis Normal sinus rhythm Possible Left atrial enlargement Borderline ECG When compared with ECG of 16-FEB-2022 09:00, No significant change was found [facility] 03/08/2022 12:2 7 PM PACKAGER MACHINE 03/09/2022 12:11 PM PACKAGER MACHINE Lila MCKEON ECG ORDERABLES Final Result Performing Organization Address [facility] Co de Phone Number [facility] documented in this encounter Visit Diagnoses [...] For 1 dose Given 03/08/2022 1:03 PM PACKAGER MACHINE 20 mg methylPREDNISolone sodium succinate (SOLU-medrol) 130 mg in sodium chloride 0.9% 50 mL IVPB 130 mg (rounded from 130.2 mg = 1 mg/kg ? 130.2 kg), intravenous, at 104.2 mL/hr, Administer over 30 Minutes, Once, On Mon03/08/22 at 1220, For 1 dose, Indications: edemaIndications:chioma a New Bag 03/08/2022 1:10 PM PACKAGER MACHINE 130 mg 104.2 mL/hr ondansetron (ZOFRAN) injection 4 mg 4 mg, intravenous, Administer over 2 Minutes, Once, On Mon03/08/22 at 1547, For 1 dose Given 03/08/2022 3:49 PM PACKAGER MACHINE 4 mg Right Antecubital documented in this encounter Discontinued Medications Medication Sig Discontinue Reason Start Date End Da te ondansetron (ZOFRAN) 4 mg tablet Take 1 tablet (4 mg total) by mouth every 4 (four) hours as needed for nausea or vomiting 10/21/2021 03/08/2022 documented as of this encounter Active and Recently Administered Medications Times are shown in PACKAGER MACHINE. Scheduled Medication Order 03/06/2022 03/07/2022 03/08/2022 famotidine [...] COVID: Recovered 02/10/2022 02/10/2022 06/10/2022 3:05 AM PACKAGER MACHINE documented as of this encounter Care Teams Concrete Engineering Technician Relationship Specialty Start Date End Date Justen Gale MD [address] [place] [id number] PCP - General 10/09/17 Liu Jerez MD Consulting Physician Gastroenterology 07/28/17 [place] [address] [address] [facility] [address] [place] [address] Consulting Physician Pulmonary Disease 08/03/17 Khris Arthur MD [address] [facility] [address] [place] [address] Medical Oncologist/Boss Miner Medical Oncology 10/23/17 [place] [address] [facility] [address] [place] [address] Surgeon Orthopedic Surgery 10/23/17 [place] [address] [facility] [address] [place] [address] Consulting Physician Pain Management 10/23/17 [place] [address] [facility] [address] [place] [address] Referring Physician General Surgery 01/26/18 [place] [address] [facility] [address] [place] [address] Consulting Physician Neurology 01/26/18 documented as of this encounter
--- OUTSIDE RECORDS SUMMARY | 2024-04-26 09:17 | XMS_ITS | Encounter Summary ---
Author Organization [facility] Address [address] [place] [address] Phone Care Team Providers Care Cocktail Server Name Role Phone Liu Jerez MD Unavailable [phone] Albert Corbin MD Unavailable [phone] Justen Gale MD Primary Care Provider Khris Arthur MD Unavailable [phone] Ko Melendez MD Unavailable [phone] John Paul Moyer MD Unavailable [phone] Annel Rod MD Unavailable Anail MARSHALL MD, Carlos M. Unavailable [phone] Encounter Details Date Type Department Care Team (Late st Contact Info) Description 03/01/2022 Orders Only [facility] Oncology [address] [facility] Advanced Medicine 7th [place] [address] [place] [address] Jeanine Ba, KHADRAA Other pulmonary [...] week 02/11/2022 How often do you attend [facility] or worship services? 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 AIR SPECIALIST Gender Identity Not on file Sexual [...] COVID: Recovered 02/10/2022 02/10/2022 06/10/2022 3:05 AM ENVIRONMENTAL AIR SPECIALIST documented as of this encounter Care Teams Cocktail Server Relationship Specialty Start Date End Date Justen Gale MD [address] [address] PCP - General 10/09/17 Liu Jerez MD Consulting Physician Gastroenterology 07/28/17 [place] [address] [facility] [address] [place] [address] Consulting Physician Pulmonary Disease 08/03/17 Khris Arthur MD [address] [facility] [address] [place] [address] Medical Oncologist/Admission Specialist Medical Oncology 10/23/17 [place] [address] [facility] [address] [place] [address] Surgeon Orthopedic Surgery 10/23/17 [place] [address] [address] Consulting Physician Pain Management 10/23/17 [place] [address] [facility] [address] [place] [address] Referring Physician General Surgery 01/26/18 [place] [address] [facility] [address] [place] [address] Consulting Physician Neurology 01/26/18 documented as of this encounter
--- OUTSIDE RECORDS SUMMARY | 2024-04-26 09:17 | XMS_ITS | Encounter Summary ---
Author Organization [facility] Healthcare Address [address] [place] [address] Care Team Providers Care Winder Fixer Name Role Phone Liu Jerez MD Unavailable Albert Corbin MD Unavailable Justen Gale MD Primary Care Provider [phone] Khris Arhtur MD Unavailable [phone] Ko Melendez MD Unavailable John Paul Moyer MD Unavailable Annel Rod MD Unavailable Anali MARSHALL MD, Carlos M. Unavailable Reason for Visit * Reason Comments Urinary Problem Encounter Details Date Type Department Care Team (Late st Contact Info) Description 02/27/2022 11:18 AM CLASSIFIED ADVERTISING CLERK - 02/27/2022 1:12 PM [facility] Emergency [facility] Emergency Department [address] [place] [address] Kirit Everett DO [facility] [place] [address] Acute cystitis with hematuria (Primary Dx); History [...] How often do you attend chur or nondenominational services? Never 02/11/2022 Do you [...] on file Legal Sex Female 12:24 AM CLASSIFIED ADVERTISING CLERK Gender Identity Not on file Sexual Orientation Not on file documented as of this encounter Last Filed Vital Signs Vital Sign Reading Time Taken Comments Blood Pressure 180/105 02/27/2022 1:10 PM CLASSIFIED ADVERTISING CLERK Pulse 82 02/27/2022 1:10 PM CLASSIFIED ADVERTISING CLERK Temperature 36.8 ??C (98.3 ??F) 02/27/2022 10:[address] Respiratory Rate 18 02/27/2022 1:10 PM CLASSIFIED ADVERTISING CLERK Oxygen Saturation 99% 02/27/2022 1:10 PM CLASSIFIED ADVERTISING CLERK Inhaled Oxygen Concentration - - Weight 130 kg (286 lb 9.6 oz) 02/27/2022 10:19 A M CLASSIFIED ADVERTISING CLERK Height 154.9 cm (5' 1 ) 02/27/2022 10:19 AM CLASSIFIED ADVERTISING CLERK Body Mass Index 54.15 02/27/2022 10:19 AM CLASSIFIED ADVERTISING CLERK documented in this encounter Discharge Instructions * Attachments The following attachments cannot be sent through Care Everywhere. * Urinary Tract Infection in Women (AfterCare(R) Instructions(ER/ED)) ([place]) documented in this encounter Medications at [...] presents with Urinary Problem 11:38 AM Karly aMrques is a 66 y.o. female w/ PMHx [...] Adiposity obesity Breast CA (CMS/HCC) (HCC) Cancer ([facility]/HCC) (HCC) breast CHF (congestive heart failure) ([facility]) ([facility]) Depression Depression Diabetes (HCC) Disorder of thyroid Thyroid disease DVT (deep venous thrombosis) ([facility]) ([facility]) HX OTHER MEDICAL restless leg syndrome HX OTHER MEDICAL RLS Hypertension Hypertension Osteoarthritis osteoarthritis PE (pulmonary thromboembolism) ([facility]) ([facility]) Sleep apnea [...] gauge x 5/16 needle blood glucose diagnostic ([employer] Ultra Test) strip lidocaine viscous (XYLOCAINE) 2 [...] tendency for uric acid stone formation. Source: [employer].Last revised 05-04-2017 URINALYSIS, MICROSCOPIC ONLY - Abnormal [...] urinalysis results. Testing performed by [facility] ([phone]) PROTIME-INR PT 13.6 INR 1.0 APTT aPTT 25 SEPSIS LACTATE WITH REFLEX Sepsis Lactate 1.0 EGFR eGFR 96 BP (!) 180/105 (BP Location: Right arm, Patient Position: HOB 30 degrees) Pulse 82 Temp 36.8 ??C (98.3 ??F) (Oral) Resp 18 Ht 154.9 cm (5' 1 ) Wt 130 kg (286 lb 9.6 oz) SpO2 99% BMI 54.15 kg/m?? [facility] ED Course as of 03/03/22 0618 Time: 02/27 1229 Comment: Pt was given: Benadryl tablet 25 mg, Macrobid capsule 100 mg. By: Kay Myers Time: 02/27 1259 Comment: Reassessed pt. Pt is tolerating the antibiotic with no reaction. Pt is stable for discharge. She was advised to follow-up with her PCP in a week. By: Kay Myers Ut home with macrobid Clinical Impression: Acute cystitis [...] words and actions. Kirit Everett DO 03/03/22617 SIFIED ADVERTISING CLERK * Christin Abdalla RN - 02/27/2022 10:12 AM CST Patient reports recurrent UTI's. Admitted to this facility for similar symptoms on 02/09 and DC 02/17- reports she has several allergic reactions to antibiotics. Patient reports urinary frequency, dysuria, urgency, and suprapubic pressure x 2 days. Denies fever. Reports nausea and decreased appetite. SIFIED ADVERTISING CLERK SIFIED ADVERTISING CLERK documented in this encounter Plan of Treatment Not on file documented as of this encounter Procedures Procedure Name Priority Date/Time Associated Diagnosis Comments SEPSIS LACTATE WITH REFLEX STAT 02/27/2022 11:24 AM CLASSIFIED ADVERTISING CLERK EGFR STAT 02/27/2022 11:24 AM CLASSIFIED ADVERTISING CLERK DIFFERENTIAL AUTO STAT 02/27/2022 11: 24 AM CLASSIFIED ADVERTISING CLERK CBC WITH AUTO DIFFERENTIAL STAT 02/27/2022 11:24 AM CLASSIFIED ADVERTISING CLERK APTT STAT 02/27/2022 11:24 AM CLASSIFIED ADVERTISING CLERK PROTIME-INR STAT 02/27/2022 11:24 AM CLASSIFIED ADVERTISING CLERK COMPREHENSIVE METABOLIC PANEL STAT 02/27/2022 11:24 AM CLASSIFIED ADVERTISING CLERK URINALYSIS AND REFLEX TO MICROSCOPIC AND CULTURE STAT 02/27/2022 9:56 AM CLASSIFIED ADVERTISING CLERK URINALYSIS, MICROSCOPIC ONLY STAT 02/27/2022 9:56 AM CLASSIFIED ADVERTISING CLERK URINE CULTURE STAT 02/27/2022 9:56 AM CLASSIFIED ADVERTISING CLERK documented in this encounter Results * eGFR (02/27/2022 11:24 AM CLASSIFIED ADVERTISING CLERK) eGFR 96 mL/min/1. 73 m2 MARY JANE [...] last reviewed 2021. Testing performed by: [address] [address] Blood 02/27/2022 11:2 4 AM CLASSIFIED ADVERTISING CLERK 02/27/2022 11:30 AM CLASSIFIED ADVERTISING CLERK Rosa [facility] LAB BLOOD ORDERABLES Final Resu lt [facility] Department [place] [address] * (ABNORMAL) Differential, auto (02/27/2022 11:24 AM CLASSIFIED ADVERTISING CLERK) Neutrophil abs 7.9(H) 1.7 - 6.5 K/cumm MARY JANE Comment:Testing performed by : [address] [address] Imm gran abs 0.1 0.0 - 0.1 K/cumm MARY JANE Comment:Testing performed by : [address] [address] Lymphocyte abs 2.4 0.8 - 3.3 K/cumm MARY JANE Comment:Testing performed by : [address] [address] Monocyte abs 0.7 0.2 - 0.8 K/cumm MARY JANE Comment:Testing performed by : [address] [address] Eosinophil abs 0.2 0.0 - 0.5 K/cumm MARY JANE Comment:Testing performed by : [address] [address] Basophil abs 0.0 0.0 - 0.1 K/cumm MARY JANE Comment:Testing performed by : [address] [address] Neutrophil pct 70.3 % MARY JANE Comment: Interpretive Data Percent cell count reference ranges are not reported, since discordance with absolute values may lead to misinterpretation of CBC data. Current Interpretive Data was last revised on 2017. Testing performed by: [address] [address] Imm gran pct 0.4 % MARY JANE Comment: Interpretive Data Percent cell count reference ranges are not reported, since discordance with absolute values may lead to misinterpretation of CBC data. Current Interpretive Data was last revised on 2017. Testing performed by: [address] [address] Lymphocyte pct 20.8 % [facility] Comment: Interpretive Data Percent cell count reference ranges are not reported, since discordance with absolute values may lead to misinterpretation of CBC data. Current Interpretive Data was last revised on 2017. Testing performed by: [address] [address] Monocyte pct 6.2 % [facility] Comment: Interpretive Data Percent cell count reference ranges are not reported, since discordance with absolute values may lead to misinterpretation of CBC data. Current Interpretive Data was last revised on 2017. Testing performed by: [address] [address] Eosinophil pct 2.0 % [facility] Comment: Interpretive Data Percent cell count reference ranges are not reported, since discordance with absolute values may lead to misinterpretation of CBC data. Current Interpretive Data was last revised on 2017. Testing performed by: [address] [address] Basophil pct 0.3 % [facility] Comment: Interpretive Data Percent cell count reference ranges are not reported, since discordance with absolute values may lead to misinterpretation of CBC data. Current Interpretive Data was last revised on 2017. Testing performed by: [address] [address] Blood 02/27/2022 11:2 4 AM CLASSIFIED ADVERTISING CLERK 02/27/2022 11:30 AM CLASSIFIED ADVERTISING CLERK us Rosa [facility] LAB BLOOD ORDERABLES Final Resu lt MARY JANE [address] [facility] [place] [address] * Sepsis Lactate w/ Reflex (02/27/2022 11:24 AM CLASSIFIED ADVERTISING CLERK) Sepsis Lactate 1.0 0.7 - 2.0 mmol/L MARY JANE Comment:Testing performed by : [address] [address] Blood 02/27/2022 11:2 4 AM CLASSIFIED ADVERTISING CLERK 02/27/2022 11:30 AM CLASSIFIED ADVERTISING CLERK [place] LAB BLOOD ORDERABLES Final Resu lt Performing Organization Address [facility] Co de Phone Number [address] [address] * aPTT (02/27/2022 11:24 AM CLASSIFIED ADVERTISING CLERK) Pathologist [facility] aPTT 25 22 - 37 sec MARY JANE Comment: Interpretive data aPTT test has not been evaluated for monitoring heparin therapy. The anti-Xa is the preferred test. Current interpretive data was last revised on 2019. Testing performed by: [address] [address] Blood 02/27/2022 11:2 4 AM CLASSIFIED ADVERTISING CLERK 02/27/2022 11:30 AM CLASSIFIED ADVERTISING CLERK [place] LAB BLOOD ORDERABLES Final Resu lt Performing Organization Address [facility] Co de Phone Number [place] [address] [place] [address] * Protime-INR (02/27/2022 11:24 AM CLASSIFIED ADVERTISING CLERK) PT 13.6 12.0 - 14.6 sec MARY JANE Comment:Testing performed by : [address] [address] INR 1.0 0.9 - 1.2 MARY JANE Comment: Ref Range High Interpretive data Oral anticoagulant therapeutic ranges: Venous thromboembolism prophylaxis or treatment: 2.0-3.0 CARDIOLOGY Standard range: 2.0-3.0 High-intensity range: 2.5-3.5 Refer to indication-specific guidelines for appropriate target ranges for prosthetic heart valve replacement. Current interpretive data was last revised on 2019. Testing performed by: [address] [address] Blood 02/27/2022 11:2 4 AM CLASSIFIED ADVERTISING CLERK 02/27/2022 11:30 AM CLASSIFIED ADVERTISING CLERK Rosa [place] LAB BLOOD ORDERABLES Final Resu lt [facility] [address] [facility] Department [place] [address] * (ABNORMAL) Comprehensive metabolic panel (02/27/2022 11:24 AM CLASSIFIED ADVERTISING CLERK) Sodium 136 135 - 145 mmol/L MARY JANE Comment:Testing performed by : [address] [address] Potassium, pl 4.3 3.3 - 4.9 mmol/L MARY JANE Comment:Testing performed by : [address] [address] Chloride 98 97 - 110 mmol/L MARY JANE Comment:Testing performed by : [address] [address] CO2 30 22 - 32 mmol/L MARY JANE Comment:Testing performed by : [address] [address] Anion gap 8 2 - 15 mmol/L MARY JANE Comment:Testing performed by : [address] [address] BUN 19 8 - 25 mg/dL MARY JANE Comment:Testing performed by : [address] [address] Creatinine 0.70 0.60 - 1.10 mg/dL MARY JANE Comment:Testing performed by : [address] [address] Glucose 300(H) 70 - 199 mg/dL MARY [...] was last revised 2017. Testing performed by: [address] [address] Calcium 10.2 8.5 - 10.3 mg/dL MARY JANE Comment:Testing performed by : [address] [address] Bilirubin, total 0.5 0.1 - 1.2 mg/dL MARY JANE Comment:Testing performed by : [address] [address] Protein, pl 8.5 6.5 - 8.5 g/dL MARY JANE Comment:Testing performed by : [address] [address] Albumin 4.0 3.5 - 5.0 g/dL MARY JANE Comment:Testing performed by : [address] [address] Alk phos 110 40 - 130 Units/L MARY JANE Comment:Testing performed by : [address] [address] ALT 20 7 - 45 Units/L MARY JANE Comment:Testing performed by : [address] [address] AST 15 10 - 45 Units/L MARY JANE Comment:Testing performed by : [address] [address] Blood 02/27/2022 11:2 4 AM CLASSIFIED ADVERTISING CLERK 02/27/2022 11:30 AM CLASSIFIED ADVERTISING CLERK us Rosa [facility] LAB BLOOD ORDERABLES Final Resu lt MARY JANE [address] Department [place] [address] * (ABNORMAL) CBC with auto differential (02/27/2022 11:24 AM CLASSIFIED ADVERTISING CLERK) [facility] WBC 11.3(H) 3.8 - 9.9 K/cumm MARY JANE PHAM Comment:Testing performed by : [address] [address] Hgb 13.3 11.9 - 15.5 g/dL MARY JANE Comment:Testing performed by : [address], [address] Hct 42.7 35.6 - 45.5 % MARY JANE Comment:Testing performed by : [address] [address] Plt 308 150 - 400 K/cumm MARY JANE Comment:Testing performed by : [address] [address] MPV 9.4 9.1 - 12.3 fL MARY JANE Comment:Testing performed by : [address], [address] RBC 4.62 3.90 - 5.20 M/cumm MARY JANE Comment:Testing performed by : [address] [address] MCV 92.4 81.3 - 96.4 fL MARY JANE Comment:Testing performed by : [address] [address] MCH 28.8 27.1 - 33.3 pg MARY JANE Comment:Testing performed by : [address] [address] MCHC 31.1(L) 32.3 - 35.7 g/dL MARY JANE Comment:Testing performed by : [address], [address] RDW CV 13.9 11.1 - 14.9 % MARY JANE Comment:Testing performed by : [address] [address] RDW SD 47.3 35.7 - 48.1 fL MARY JANE Comment:Testing performed by : [address] [address] NRBC abs 0.00 0.00 - 0.01 K/cumm MARY JANE Comment:Testing performed by : [address] [address] Blood 02/27/2022 11:2 4 AM CLASSIFIED ADVERTISING CLERK 02/27/2022 11:30 AM CLASSIFIED ADVERTISING CLERK Rosa [place] LAB BLOOD ORDERABLES Final Resu lt Performing Organization Address [facility] de Phone Number [address] [place] [address] * Urine culture Urine (02/27/2022 9:56 AM CLASSIFIED ADVERTISING CLERK) Report Final Report: Less than 100,000 colonies/mL (clinically insignificant growth based on current clinical standards) MARY JANE Comment:Testing performed by : [facility], [address] [place]., [address] Organism (CLINICALLY INSIGNIFICANT GROWTH MARY JANE Urine 02/27/2022 9:56 AM CLASSIFIED ADVERTISING CLERK 02/27/2022 2:14 PM CLASSIFIED ADVERTISING CLERK Narrative MARY JANE - 02/28/2022 3:34 PM CLASSIFIED ADVERTISING CLERK Urine culture reflexed based upon urinalysis results. Testing performed by [facility] ([phone]) Rosa [facility] LAB MICROBIOLOGY - GENERAL ORDE RABLES Final Result Performing Organization Address [facility] de Phone Number [facility] [address] [facility] [place] [address] * (ABNORMAL) Urinalysis, microscopic only (02/27/2022 9:56 AM CLASSIFIED ADVERTISING CLERK) WBC, ur >50(A) 0 - 5 /HPF MARY JANE Comment:Testing performed by : [address] [address] RBC, ur >50(A) 0 - 2 /HPF MARY JANE Comment:Testing performed by : [address] [address] Mucous, ur Present(A) MARY JANE PHAM Comment:Testing performed by : [address] [address] Hyaline casts, ur 6-10 0 - 10 /LPF MARY JANE PHAM Comment:Testing performed by : [address] [address] Culture Reflex Comment Reflex to urine culture will be performed. MARY JANE Comment:Testing performed by : [address] [address] Urine 02/27/2022 9:56 AM CLASSIFIED ADVERTISING CLERK 02/27/2022 10:00 AM CLASSIFIED ADVERTISING CLERK Rosa [facility] LAB URINE ORDERABLES Final Resu lt MARY JANE [address] [facility] Department [place] [address] * (ABNORMAL) Urinalysis reflex to microscopic and culture Urine (02/27/2022 9:56 AM CLASSIFIED ADVERTISING CLERK) Color, ur Yellow Yellow MARY JANE Comment:Testing performed by : [address] [address] Clarity, ur Cloudy(A) Clear MARY JANE Comment:Testing performed by : [address] [address] Specific gravity, ur 1.018 1.003 - 1.030 MARY JANE Comment:Testing performed by : [address] [address] pH, urine 5.0 MARY JANE Comment:Testing performed by : [address] [address] Protein, ur ql Negative Negative MARY JANE Comment:Testing performed by : [address] [address] Glucose, ur ql Negative Negative MARY JANE Comment:Testing performed by : [address] [address] Ketones, ur Negative Negative MARY JANE Comment:Testing performed by : [address] [address] Bilirubin, ur Negative Negative MARY JANE Comment:Testing performed by : [facility], [address] [place] [address], [place]., [address] Blood, ur 2+(A) Negative MARY JANE Comment:Testing performed by : [facility], [address] [place] [address], [place]., [address] Urobilinogen, ur <2.0 <2.0 mg/dL MARY JANE Comment:Testing performed by : [address] [address] Nitrite, ur Negative Negative MARY JANE Comment:Testing performed by : [address], [place]., [address] Leukocyte esterase, ur 4+(A) Negative MARY JANE Comment:Testing performed by : [address], [place]., [address] UA reflex comment Reflex to microscopic UA will be performed. MARY JANE Comment:Testing performed by : [address] [address] Urine 02/27/2022 9:56 AM CLASSIFIED ADVERTISING CLERK 02/27/2022 10:00 AM CLASSIFIED ADVERTISING CLERK Narrative MARY JANE - 02/27/2022 10:03 AM CLASSIFIED ADVERTISING CLERK ?? Urine pH is affected by diet, medications, systemic acid-base disturbances, and renal tubular function. ??pH may affect urinary stone formation. ??For example, urine pH below 6.0 may help reduce the tendency for calcium phosphate stones and pH greater than 6.0 may reduce the tendency for uric acid stone formation. Source: [facility]. Last revised 05-04-2017 us Rosa [facility] LAB MICROBIOLOGY - GENERAL ORDE REGAN Final Result MARY JANE [address] [facility] Department [place] [address] documented in this encounter Visit Diagnoses Diagnosis Acute cystitis with hematuria- Primary History of recurrent UTIs documented in this encounter Administered Medications Inactive Administered Medications - up to 3 most recent administrations Medication Order MAR Action Action Date Dose Rate Site diphenhydrAMINE (BENADRYL) tab/cap 25 mg 25 mg, oral, Once, On 02/27/22 at 1212, For 1 dose Given 02/27/2022 12:25 PM CLASSIFIED ADVERTISING CLERK 25 mg nitrofurantoin monohydrate (MACROBID) capsule 100 mg 100 mg, oral, Once, On 02/27/22 at 1212, For 1 dose, Take with food, Indications: Urinary Tract/Genitourinary InfectionIndications:Urinary Tract/Genitourinary Infection Given 02/27/2022 12:25 PM CLASSIFIED ADVERTISING CLERK 100 mg documented in this encounter Active and Recently Administered Medications Due to Daylight Saving Time, this section may contain times in both CDT and CLASSIFIED ADVERTISING CLERK. Scheduled Medication Order 02/25/2022 02/26/2022 02/27/2022 diphenhydrAMINE [...] COVID: Recovered 02/10/2022 02/10/2022 06/10/2022 3:05 AM CLASSIFIED ADVERTISING CLERK documented as of this encounter Care Teams Winder Fixer Relationship Specialty Start Date End Date Justen Gale MD [address] [address] PCP - General 10/09/17 Liu Jerez MD Consulting Physician Gastroenterology 07/28/17 [place] [address] [facility] [address] [place] [address] Consulting Physician Pulmonary Disease 08/03/17 Khris Arthur MD [address] [facility] [address] [place] [address] Medical Oncologist/Oxygen Equipment Technician Medical Oncology 10/23/17 [place] [address] [address] [facility] [address] [place] [address] Surgeon Orthopedic Surgery 10/23/17 [place] [address] [address] [facility] [address] [place] [address] Consulting Physician Pain Management 10/23/17 [place] [address] [address] [facility] [address] [place] [address] Referring Physician General Surgery 01/26/18 [place] [address] [address] [facility] [address] [place] [address] Consulting Physician Neurology 01/26/18 documented as of this encounter
--- OUTSIDE RECORDS SUMMARY | 2024-04-26 09:17 | XMS_ITS | Encounter Summary ---
Author Organization [facility] Healthcare Address [address] [place] [address] Care Team Providers Care Foundry Melt Supervisor Name Role Phone Liu Jerez MD Unavailable Albert Corbin MD Unavailable Justen Gale MD Primary Care Provider Khris Arthur MD Unavailable [phone] Ko Melendez MD Unavailable John Paul Moyer MD Unavailable Annel Rod MD Unavailable Anali MARSHALL MD, Carlos M. Unavailable [phone] Reason for Visit * Reason Comments Urinary Problem Peripheral Edema * Auth/Cert Specialty Diagnoses / Procedures Referred By Elyssa t Referred To Contact Diagnoses Cystitis Procedures Referral ID Status Reason Start Date Expiration Date Visits Re quested Visits Authorized [id number] 1 1 Encounter Details Date Type Department Care Team (Late st Contact Info) Description 02/09/2022 4:07 PM CDT - 02/17/2022 11:38 AM CDT Hospital Encounter [facility] 5 Med Surg [address] [place] [address] Mariel Florentino MD [facility]0 [facility] [address] [place], [place] [id number] Neha Solo MD [address] [place] [address] Antoinette Reed MD [address] [facility] [place] [address] Cystitis (Primary Dx) Discharge Disposition: [...] do you attend chur or yarsani services? 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 Gender Identity Not on file Sexual [...] Care Physician at Discharge: Justen Gale MD [phone] Admission Date: 02/09/2022 Discharge Date: 02/17/2022 Admission Location: [facility] Problems/Diagnoses: Principal Problem: Cystitis Active Problems: Essential hypertension History of pulmonary embolism Type 2 diabetes mellitus with neurologic complication, without long-term current use of insulin ([facility]) ([facility]) Lab test positive for detection of COVID-19 [...] Time Provider Department Center 03/08/2022 10:50 AM [facility] BONE TECH CAM BONE CAM Bone Health 03/08/2022 12:00 PM Khris Arthur MD ONC CAM7 Oncology Contact Information for Follow-ups Lester Lebron MD Specialty: Allergy and Immunology, Internal Medicine [address] [place] [id number] Next Steps: Follow up primary care provider call for appointment. Follow up within 1 week. Next Steps: Follow up Questions: Primary Care Provider Name: Justen Gale MD Instructions for follow-up (appointment date and time): call for appointment. Follow up within 1 week. Justen Gale MD Specialty: Family Medicine Relationship: PCP - General [address] [place] [address] Next Steps: Follow up documented in this encounter Discharge Instructions * Attachments The following attachments cannot be sent through Care Everywhere. * Urinary Tract Infection in Older Adults (Discharge Care) (Malagasy) documented in this encounter Medications at Time of Discharge albuterol HFA (PROVENTIL HFA,VENTOLIN HFA,PROAIR HFA) 90 mcg/actuation inhaler Inhale 2 puffs every 6 (six) hours as needed for wheezing or shortness of breath 1 BD Ultra-Fine Short Pen Needle 31 gauge x 5/16 needle USE 6 TIMES DAILY DIRECTED 2 blood glucose diagnostic ([employer]Touch Ultra Test) strip 4 (four) times a [...] flush 5-10 mL 5-10 mL intra-catheter Q8H [facility] Neha Solo MD 10 mL at 02/16/222052 [...] with BMI of 53 Genaro Coy MD [facility] Infectious Disease [place] [facility] [phone] * Antoinette Reed MD - 02/16/2022 2:55 [...] flush 5-10 mL 5-10 mL intra-catheter Q8H [facility] Neha Solo MD 10 mL at 02/15/22 [...] insulin Diet effective now Question Answer Comment (MHB/MHE/RESIDENTIAL) Diet type Restricted Diabetic: Diabetic Patient receiving [...] Nightly Blaze Armenta NP 33 Units at 02/15/222014 insulin [...] flush 5-10 mL 5-10 mL intra-catheter Q8H [facility] Neha Solo MD 10 mL at 02/15/22 [...] with BMI of 53. Genaro Coy MD [facility] Infectious Disease [place] [facility] [phone] * Mckenzie Hart MSW - 02/16/2022 9:15 [...] sugars ranging between 129-168. Genaro Coy MD [facility] Infectious Disease [place] [facility] [phone] * Antoinette Reed MD - 02/15/2022 2:22 [...] flush 5-10 mL 5-10 mL intra-catheter Q8H [facility] Neha Solo MD 10 mL at 02/15/22 [...] flush 0.5-20 mL 0.5-20 mL intra-catheter Q8H [facility] Blaze Armenta NP 10 mL at 02/14/22 [...] has rash with ciprofloxacin Genaro Coy MD [facility] Infectious Disease [place] [facility] [phone] * Neha Solo MD - 02/14/2022 4:46 [...] complication, without long-term current use of insulin ([facility]) ([facility]) Lab test positive for detection of COVID-19 [...] Code Discharge disposition: Home * Jimmie Su, GEOSPATIAL INTELLIGENCE ANALYST - 02/14/2022 10:58 AM CDT Physical Therapy [...] 02/14/2022 9:28 AM CDT Occupational Therapy 02/14/22 0922 General Session Type Treatment OT Received On [...] Thyroid disease DVT (deep venous thrombosis) (CMS/HCC) ([facility]) HX OTHER MEDICAL restless leg syndrome HX OTHER MEDICAL RLS Hypertension Hypertension Osteoarthritis osteoarthritis PE (pulmonary thromboembolism) (CMS/HCC) ([facility]) Sleep apnea Objective Vitals: 24hr Min/Max: Temp [...] flush 0.5-20 mL 0.5-20 mL intra-catheter Q8H [facility] Blaze Armenta NP 10 mL at 02/13/22 [...] 100 mL IVPB 500 mg intravenous Q6H [facility] Neha Solo MD morphine injection 2 mg [...] flush 5-10 mL 5-10 mL intra-catheter PRN eNha Solo MD Assessment/Plan Principal Problem: Cystitis Active Problems: Essential hypertension History of pulmonary embolism Type 2 diabetes mellitus with neurologic complication, without long-term current use of insulin (CMS/HCC) ([facility]) Lab test positive for detection of COVID-19 [...] 2 puff inhalation Q6H While awake (RT) Balze Armenta NP 2 puff at 02/12/22 1445 [...] 100 mL IVPB 500 mg intravenous Q8H [facility] Neha Solo MD 200 mL/hr at 02/12/22 1422 [...] complication, without long-term current use of insulin ([facility]) ([facility]) Lab test positive for detection of COVID-19 [...] Code Discharge disposition: Home * Abiola Laboy, GEOSPATIAL INTELLIGENCE ANALYST - 02/12/2022 8:44 AM CDT Physical Therapy [...] complication, without long-term current use of insulin ([facility]) ([facility]) Lab test positive for detection of COVID-19 [...] walker;Single point cane Prior Function 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 Goal Start Date Expected End Date End Date Formerly [facility] 2 02/12/22 02/19/22 -- Goal Details: 2) DEMO INDEP WITH UE HEP TO IMPROVE ENDURANCE FOR ADL/MOBILITY. Goal Start Date Expected End Date End Date Formerly [facility] 3 02/12/22 02/19/22 -- Goal Details: 3) COMPLETE DYNAMIC BALANCE ACTIVITY/ITEM RETRIEVAL (4/4 items) IN ROOM WITH GOOD BALANCE/SAFETY. Goal Start Date Expected End Date End Date Formerly [facility] 4 02/12/22 02/19/22 -- Goal Details: 4) DEMO INDEP WITH LE ADL SBA WITH USE OF AE PRN. Goal Start Date Expected End Date End Date Formerly [facility] 5 02/12/22 02/19/22 -- Goal Details: [...] negative. CTscan was unremarkable Genaro Coy MD [facility] Infectious Disease [place] [facility] [phone] * Neha Solo MD - 02/10/2022 5:22 [...] osteoarthritis PE (pulmonary thromboembolism) (CMS/HCC) ([facility]) Sleep apnea Objective Vitals: 24hr Min/Max: Temp [...] complication, without long-term current use of insulin ([facility]) ([facility]) Lab test positive for detection of COVID-19 [...] 1549 Patient Spiritual Assessment Spirituality Assessed Yes Mu-Ism Affiliation Judaism Clinical Encounter Type Visited With Patient Response Type Routine visit Routine Visit Introduction Reason for visit Support Patient stated that she wasn't feeling good enough to have a routine visit. Visit ended with encouragement and blessing. * Bonnie Granados RN - 02/10/2022 3:00 PM CDT CM Initial Assessment Interview Note Information Obtained From: Patient (02/10/22 8368) Admission Source: ED Impression: Pt presented with [...] Number of steps outside:: 2 steps (02/09/22 1246) Patient expects to be Discharged to: Private residence, (02/10/22 2200) Patient's Identified Problem/Goal Problem: Ensure acute medical [...] Collaboration with patient, MD, direct care nurse, Assembly Loader, and other members of the health care team to assure needed interventions completed. 2. Return patient to optimal level of self-care post discharge. 3. 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 [...] CHF (congestive heart failure) (CMS/HCC) ([facility]) Depression Depression Diabetes ([facility]) Disorder of thyroid Thyroid disease DVT (deep venous thrombosis) ([facility]) ([facility]) HX OTHER MEDICAL restless leg syndrome HX OTHER MEDICAL RLS Hypertension Hypertension Osteoarthritis osteoarthritis PE (pulmonary thromboembolism) ([facility]) ([facility]) Sleep apnea Past Surgical History: [...] EKG/Min 92 BPM Atrial Rate 92 BPM SC-Interval (MSEC) 134 ms QRS-Interval (MSEC) 76 ms QT-Interval (MSEC) 348 ms QTc 430 ms P Aleppo 8 degrees R Aleppo 0 degrees T Aleppo 16 degrees Diagnosis Normal sinus rhythm Nonspecific [...] KT: DEANA T: 25:39 PM Report ID: [id number] Reading Location: [id number] XR Chest 1 Vw Portable Result Date: [...] Teto English M.D. CH: CATALINA Report ID: [id number] Reading Location: [id number] CT Chest Abdomen Pelvis W Contrast Result [...] Dulce Danielson D.O. AC: JUDY Report ID: [id number] Reading Location: [place] [address] ASSESSMENT/PLAN: Principal Problem: Cystitis Active Problems: Essential hypertension History of pulmonary embolism Type 2 diabetes mellitus with neurologic complication, without long-term current use of insulin ([facility]) ([facility]) Lab test positive for detection of COVID-19 [...] complication, without long-term current use of insulin ([facility]) ([facility]): Will hold home medicine and started her on insulin regimen. Full Code ESTIMATED LENGTH OF STAY: 2 Approximate time spent for chart review, assessment, interview, and note - 50 min Medical Decision Making Complexity: 2 DVT prophylaxis: On xarelto PT/OT: Ordered Case discussed with Case Management and Assembly Loader Voice recognition software [employer] may have been used to dictate and transcribe this document. Consumer Marketing Specialist variances may occur. Despite proofreading, typographical errors [...] MDM: Brittnee Florentino MD 11:44 PM 02/09/2022 [facility] Hospitalist Group documented in this encounter Consult [...] 650 mg oral Q4H PRN Blaze Armenta, MANAGEMENT TECHNICIAN 650 mg at 02/09/22 7123 albuterol HFA (PROVENTIL HFA,VENTOLIN HFA,PROAIR HFA) 90 [...] EKG/Min 92 BPM Atrial Rate 92 BPM SC-Interval (MSEC) 134 ms QRS-Interval (MSEC) 76 ms QT-Interval (MSEC) 348 ms QTc 430 ms P Aleppo 8 degrees R Aleppo 0 degrees T Aleppo 16 degrees Diagnosis Normal sinus rhythm Nonspecific [...] gauge x 5/16 needle blood glucose diagnostic ([employer]Touch Ultra Test) strip exemestane (AROMASIN) 25 mg [...] oriented to person, place, and time. Procedures [facility] Labs Reviewed URINALYSIS AND REFLEX [...] stone formation. Source: [facility] [employer].Last revised 05-04-2017 INFLUENZA A/B, RSV, AND COVID-19 [...] Florentino, pt will be [facility] stay 2+ nights History, physical exam, labs, radiographic evaluation, medications/interventions, were discussed. Disposition: home This examination was transcribed using the [employer] voice recognition system without human sixth grade teacher. In an effort to expedite patient care, this report has not been adjusted for typographical, grammatical, and syntax by a trained bacteriologist medical. Clinical Impression: Cystitis Lila Gasca PA 02/09/221933 [...] the night. Plan of care discussed with patient/strategic partnership representative, including as it relates to Principal Problem: Cystitis Active Problems: Essential hypertension History of pulmonary embolism Type 2 diabetes mellitus with neurologic complication, without long-term current use of insulin ([facility]) ([facility]) Lab test positive for detection of COVID-19 virus Patient progressing. Education provided includes Discharge Planning, Fall Prevention, and Pain Management. Patient and/or strategic partnership representative Verbalizes understanding. Will continue to monitor. [...] * POCT glucose (02/17/2022 11:09 AM CDT) [facility] Signature Glucose, POC 120 70 - 199 mg/dL MARY JANE PHAM Comment:Testing performed by : [facility], [address] [place] [address]., [id number] Blood 02/17/2022 11:0 9 AM CDT 02/17/2022 11:09 AM CDT Antoinette Reed MD LAB POCT ORDERABLES - DEVICE Final Result MARY JANE PHAM [id number] [facility] [place] [address] * POCT glucose (02/17/2022 7:10 AM CDT) [facility] Glucose, POC 128 70 - 199 mg/dL MARY JANE Comment:Testing performed by : [facility], [address] [place] [address]., [id number] Blood 02/17/2022 7:10 AM CDT 02/17/2022 7:10 AM CDT Antoinette Reed MD LAB POCT ORDERABLES - DEVICE Final Result MARY JANE [address] [facility] [place] [address] * eGFR (02/17/2022 5:02 AM CDT) [facility] eGFR 104 mL/min/1. 73 m2 MARY JANE [...] was last reviewed 2021. Testing performed by: [facility], [address] [place] [address]., [id number] Blood 02/17/2022 5:02 AM CDT 02/17/2022 5:33 AM CDT us Reynaldoeleni HawkinsKathifatou ACEVEDO LAB BLOOD ORDERABLES Final Resul t MARY JANE [address] [facility] [place] [address] * (ABNORMAL) Differential, auto (02/17/2022 5:02 AM CDT) Neutrophil abs 6.8(H) 1.7 - 6.5 K/cumm MARY JANE Comment:Testing performed by : [address] [address] Imm gran abs 0.0 0.0 - 0.1 K/cumm MARY JANE Comment:Testing performed by : [address] [address] Lymphocyte abs 2.6 0.8 - 3.3 K/cumm MARY JANE Comment:Testing performed by : [address] [address] Monocyte abs 0.7 0.2 - 0.8 K/cumm MARY JANE Comment:Testing performed by : [address] [address] Eosinophil abs 0.2 0.0 - 0.5 K/cumm MARY JANE Comment:Testing performed by : [address] [address] Basophil abs 0.0 0.0 - 0.1 K/cumm MARY JANE Comment:Testing performed by : [address] [address] Neutrophil pct 65.4 % MARY JANE Comment: Interpretive Data Percent cell count reference ranges are not reported, since discordance with absolute values may lead to misinterpretation of CBC data. Current Interpretive Data was last revised on 2017. Testing performed by: [address] [address] Imm gran pct 0.4 % MARY JANE Comment: Interpretive Data Percent cell count reference ranges are not reported, since discordance with absolute values may lead to misinterpretation of CBC data. Current Interpretive Data was last revised on 2017. Testing performed by: [address] [address] Lymphocyte pct 25.4 % MARY JANE Comment: Interpretive Data Percent cell count reference ranges are not reported, since discordance with absolute values may lead to misinterpretation of CBC data. Current Interpretive Data was last revised on 2017. Testing performed by: [address] [address] Monocyte pct 6.7 % MARY JANE Comment: Interpretive Data Percent cell count reference ranges are not reported, since discordance with absolute values may lead to misinterpretation of CBC data. Current Interpretive Data was last revised on 2017. Testing performed by: [address] [address] Eosinophil pct 1.8 % MARY JANE Comment: Interpretive Data Percent cell count reference ranges are not reported, since discordance with absolute values may lead to misinterpretation of CBC data. Current Interpretive Data was last revised on 2017. Testing performed by: [address] [address] Basophil pct 0.3 % MARY JANE Comment: Interpretive Data Percent cell count reference ranges are not reported, since discordance with absolute values may lead to misinterpretation of CBC data. Current Interpretive Data was last revised on 2017. Testing performed by: [address] [address] Blood 02/17/2022 5:02 AM CDT 02/17/2022 5:33 AM CDT us Blaze Armenta NP LAB BLOOD ORDERABLES Final Resul t MARY JANE PHAM [address] [facility] Department [place] [address] * (ABNORMAL) CBC with auto differential (02/17/2022 5:02 AM CDT) WBC 10.4(H) 3.8 - 9.9 K/cumm MARY JANE PHAM Comment:Testing performed by : [address], [address] Hgb 12.1 11.9 - 15.5 g/dL MARY JANE Comment:Testing performed by : [address], [address] Hct 39.0 35.6 - 45.5 % MARY JANE Comment:Testing performed by : [address], [address] Plt 258 150 - 400 K/cumm MARY JANE Comment:Testing performed by : [address], [address] MPV 9.6 9.1 - 12.3 fL MARY JANE Comment:Testing performed by : [address], [address] RBC 4.23 3.90 - 5.20 M/cumm MARY JANE Comment:Testing performed by : [address], [address] MCV 92.2 81.3 - 96.4 fL MARY JANE Comment:Testing performed by : [address], [address] MCH 28.6 27.1 - 33.3 pg MARY JANE Comment:Testing performed by : [address], [address] MCHC 31.0(L) 32.3 - 35.7 g/dL MARY JANE Comment:Testing performed by : [address], [address] RDW CV 14.2 11.1 - 14.9 % MARY JANE Comment:Testing performed by : [address], [address] RDW SD 48.0 35.7 - 48.1 fL MARY JANE Comment:Testing performed by : [address], [address] NRBC abs 0.00 0.00 - 0.01 K/cumm MARY JANE Comment:Testing performed by : [address], [address] Blood 02/17/2022 5:02 AM CDT 02/17/2022 5:33 AM CDT us Blaze Armenta NP LAB BLOOD ORDERABLES Final Resul t MARY JANE [address] [facility] Department [place] [address] * (ABNORMAL) Basic metabolic panel (02/17/2022 5:02 AM CDT) Pathologist [facility] Sodium 136 135 - 145 mmol/L MARY JANE Comment:Testing performed by : [address] [address] Potassium, pl 4.3 3.3 - 4.9 mmol/L MARY JANE Comment:Testing performed by : [address] [address] Chloride 102 97 - 110 mmol/L MARY JANE Comment:Testing performed by : [address] [address] CO2 27 22 - 32 mmol/L MARY JANE Comment:Testing performed by : [address] [address] Anion gap 7 2 - 15 mmol/L MARY JANE Comment:Testing performed by : [address] [address] BUN 16 8 - 25 mg/dL MARY JANE Comment:Testing performed by : [address] [address] Creatinine 0.50(L) 0.60 - 1.10 mg/dL MARY JANE Comment:Testing performed by : [address] [address] Glucose 139 70 - 199 mg/dL MARY [...] last revised 2017. Testing performed by: [address] [address] Calcium 9.2 8.5 - 10.3 mg/dL MARY JANE Comment:Testing performed by : [address] [address] Blood 02/17/2022 5:02 AM CDT 02/17/2022 5:33 AM CDT Blaze Armenta NP LAB BLOOD ORDERABLES Final Resul t Performing Organization Address [facility] Co de Phone Number [address] [place] [address] * POCT glucose (02/16/2022 7:39 PM CDT) Glucose, POC 154 70 - 199 mg/dL MARY JANE Comment:Testing performed by : [address] [address] Glucose comment 1 Use This Result MARY JANE Comment:Testing performed by : [address] [address] Blood 02/16/2022 7:39 PM CDT 02/16/2022 7:39 PM CDT us Antoinette Reed MD LAB POCT ORDERABLES - DEVICE Final Result Performing Organization Address City/[facility] Co de Phone Number [address] [employer] [place] [address] * POCT glucose (02/16/2022 4:47 PM CDT) Glucose, POC 135 70 - 199 mg/dL MARY JANE Comment:Testing performed by : [address] [address] Blood 02/16/2022 4:47 PM CDT 02/16/2022 4:47 PM CDT Antoinette Reed MD LAB POCT ORDERABLES - DEVICE Final Result Performing Organization Address City/[facility] Co de Phone Number [facility] [address] [place] [address] * POCT glucose (02/16/2022 12:24 PM CDT) Pathologist [facility] Glucose, POC 120 70 - 199 mg/dL [facility] Comment:Testing performed by : [facility], [address] [place] [address]., [address] Blood 02/16/2022 12:2 4 PM CDT 02/16/2022 12:24 PM CDT Antoinette Reed MD LAB POCT ORDERABLES - DEVICE Final Result Performing Organization Address [facility] Co de Phone Number [place] [phone] [facility] [place] [address] * ECG 12 lead (02/16/2022 9:00 AM CDT) [facility] Signature Ventricular Rate EKG/Min 97 BPM [facility] Atrial Rate 97 BPM [facility] SC-Interval (MSEC) 136 ms [facility] QRS-Interval (MSEC) 80 ms [facility] QT-Interval (MSEC) 362 ms [facility] QTc 459 ms [facility] P Aleppo 6 degrees [facility] R Aleppo 11 degrees [facility] T Aleppo 41 degrees [facility] Diagnosis Normal sinus rhythm Normal ECG When compared with ECG of 09-FEB-2022 13:19, Nonspecific T wave abnormality no longer evident in Lateral leads [facility] 02/16/2022 9:00 AM CDT 02/17/2022 12:49 PM CDT us Genaro Coy MD ECG ORDERABLES Final Result Performing Organization Address City/[facility]/ZIP Co de Phone Number [facility] * (ABNORMAL) POCT glucose (02/16/2022 8:59 AM CDT) Glucose, POC 240(H) 70 - 199 mg/dL [facility] Comment:Testing performed by : [address] [address] Blood 02/16/2022 8:59 AM CDT 02/16/2022 8:59 AM CDT Antoinette Rede MD LAB POCT ORDERABLES - DEVICE Final Result Performing Organization Address [facility] de Phone Number [address] [employer] [place] [address] * POCT glucose (02/16/2022 8:09 AM CDT) [facility] Glucose, POC 135 70 - 199 mg/dL [facility] Comment:Testing performed by : [address] [address] Blood 02/16/2022 8:09 AM CDT 02/16/2022 8:09 AM CDT Antoinette Reed MD LAB POCT ORDERABLES - DEVICE Final Result Performing Organization Address [facility] de Phone Number [address] [address] * eGFR (02/16/2022 4:16 AM CDT) Pathologist [facility] eGFR 100 mL/min/1. 73 m2 [facility] Comment: Interpretive Data Reference Interval Normal [...] last reviewed 2021. Testing performed by: [address] [address] Blood 02/16/2022 4:16 AM CDT 02/16/2022 4:58 AM CDT us Blaze Armenta NP LAB BLOOD ORDERABLES Final Resul t [place] [id number] [facility] Department of Laboratories [place], [place] [id number] * (ABNORMAL) Differential, auto (02/16/2022 4:16 AM CDT) Neutrophil abs 8.6(H) 1.7 - 6.5 K/cumm MARY JANE Comment:Testing performed by : [address] [address] Imm gran abs 0.1 0.0 - 0.1 K/cumm MARY JANE Comment:Testing performed by : [address] [address] Lymphocyte abs 2.7 0.8 - 3.3 K/cumm MARY JANE Comment:Testing performed by : [address] [address] Monocyte abs 0.8 0.2 - 0.8 K/cumm MARY JANE Comment:Testing performed by : [address] [address] Eosinophil abs 0.2 0.0 - 0.5 K/cumm [facility] Comment:Testing performed by : [address] [address] Basophil abs 0.0 0.0 - 0.1 K/cumm [facility] Comment:Testing performed by : [address] [address] Neutrophil pct 69.2 % [facility] Comment: Interpretive Data Percent cell count reference ranges are not reported, since discordance with absolute values may lead to misinterpretation of CBC data. Current Interpretive Data was last revised on 2017. Testing performed by: [address] [address] Imm gran pct 0.5 % [facility] Comment: Interpretive Data Percent cell count reference ranges are not reported, since discordance with absolute values may lead to misinterpretation of CBC data. Current Interpretive Data was last revised on 2017. Testing performed by: [address] [address] Lymphocyte pct 21.8 % [facility] Comment: Interpretive Data Percent cell count reference ranges are not reported, since discordance with absolute values may lead to misinterpretation of CBC data. Current Interpretive Data was last revised on 2017. Testing performed by: [address] [address] Monocyte pct 6.8 % [facility] Comment: Interpretive Data Percent cell count reference ranges are not reported, since discordance with absolute values may lead to misinterpretation of CBC data. Current Interpretive Data was last revised on 2017. Testing performed by: [address] [address] Eosinophil pct 1.4 % [facility] Comment: Interpretive Data Percent cell count reference ranges are not reported, since discordance with absolute values may lead to misinterpretation of CBC data. Current Interpretive Data was last revised on 2017. Testing performed by: [address] [address] Basophil pct 0.3 % [facility] Comment: Interpretive Data Percent cell count reference ranges are not reported, since discordance with absolute values may lead to misinterpretation of CBC data. Current Interpretive Data was last revised on 2017. Testing performed by: [address] [address] Blood 02/16/2022 4:16 AM CDT 02/16/2022 5:01 AM CDT us Blaze Armenta NP LAB BLOOD ORDERABLES Final Resul t MARY JANE 1570 [facility] Department [place] [address] * (ABNORMAL) CBC with auto differential (02/16/2022 4:16 AM CDT) WBC 12.4(H) 3.8 - 9.9 K/cumm MARY JANE PHAM Comment:Testing performed by : [address] [address] Hgb 11.7(L) 11.9 - 15.5 g/dL MARY JANE Comment:Testing performed by : [address] [address] Hct 36.9 35.6 - 45.5 % MARY JANE Comment:Testing performed by : [address] [address] Plt 258 150 - 400 K/cumm MARY JANE Comment:Testing performed by : [address] [address] MPV 9.8 9.1 - 12.3 fL MARY JANE Comment:Testing performed by : [address] [address] RBC 4.03 3.90 - 5.20 M/cumm MARY JANE Comment:Testing performed by : [address] [address] MCV 91.6 81.3 - 96.4 fL MARY JANE Comment:Testing performed by : [address] [address] MCH 29.0 27.1 - 33.3 pg MARY JANE PHAM Comment:Testing performed by : [address] [address] MCHC 31.7(L) 32.3 - 35.7 g/dL MARY JANE PHAM Comment:Testing performed by : [address] [address] RDW CV 14.2 11.1 - 14.9 % MARY JANE PHAM Comment:Testing performed by : [address] [address] RDW SD 47.7 35.7 - 48.1 fL MARY JANE PHAM Comment:Testing performed by : [address] [address] NRBC abs 0.00 0.00 - 0.01 K/cumm MARY JANE PHAM Comment:Testing performed by : [address] [address] Blood 02/16/2022 4:16 AM CDT 02/16/2022 5:01 AM CDT Blaze Armenta NP LAB BLOOD ORDERABLES Final Resul t MARY JANE 4500 [facility] Department [place] [address] * Basic metabolic panel (02/16/2022 4:16 AM CDT) Sodium 139 135 - 145 mmol/L MARY JANE PHAM Comment:Testing performed by : [address] [address] Potassium, pl 4.2 3.3 - 4.9 mmol/L MARY JANE PHAM Comment:Testing performed by : [address] [address] Chloride 105 97 - 110 mmol/L MARY JANE PHAM Comment:Testing performed by : [address] [address] CO2 27 22 - 32 mmol/L MARY JANE PHAM Comment:Testing performed by : [address] [address] Anion gap 7 2 - 15 mmol/L MARY JANE PHAM Comment:Testing performed by : [address] [address] BUN 18 8 - 25 mg/dL MARY JANE PHAM Comment:Testing performed by : [address] [address] Creatinine 0.60 0.60 - 1.10 mg/dL MARY JANE Comment:Testing performed by : [address] [address] Glucose 133 70 - 199 mg/dL MARY [...] last revised 2017. Testing performed by: [address] [address] Calcium 9.2 8.5 - 10.3 mg/dL MARY JANE Comment:Testing performed by : [address] [address] Blood 02/16/2022 4:16 AM CDT 02/16/2022 4:58 AM CDT us Blaze Armenta NP LAB BLOOD ORDERABLES Final Resul t MARY JANE 2478 [facility] Department [place] [address] * POCT glucose (02/15/2022 8:19 PM CDT) Glucose, POC 134 70 - 199 mg/dL MARY JANE Comment:Testing performed by : [address] [address] Blood 02/15/2022 8:19 PM CDT 02/15/2022 8:19 PM CDT us Antoinette Reed MD LAB POCT ORDERABLES - DEVICE Final Result Performing Organization Address [facility] Co de Phone Number MARY JANE [address] [address] * POCT glucose (02/15/2022 4:34 PM CDT) Glucose, POC 157 70 - 199 mg/dL MARY JANE PHAM Comment:Testing performed by : [address] [address] Glucose comment 1 Use This Result MARY JANE Comment:Testing performed by : [address] [address] Blood 02/15/2022 4:34 PM CDT 02/15/2022 4:34 PM CDT Antoinette Reed MD LAB POCT ORDERABLES - DEVICE Final Result Performing Organization Address [facility] de Phone Number MARY JANE [address] [address] * POCT glucose (02/15/2022 10:54 AM CDT) Glucose, POC 129 70 - 199 mg/dL MARY JANE Comment:Testing performed by : [address] [address] Blood 02/15/2022 10:5 4 AM CDT 02/15/2022 10:54 AM CDT Antoinette Reed MD LAB POCT ORDERABLES - DEVICE Final Result Performing Organization Address City/[facility] Co de Phone Number MARY JANE [address] [address] * POCT glucose (02/15/2022 8:01 AM CDT) Glucose, POC 130 70 - 199 mg/dL MARY JANE Comment:Testing performed by : [address] [address] Glucose comment 1 Use This Result MARY JANE PHAM Comment:Testing performed by : [facility], [address] [place] [address]., [address] Blood 02/15/2022 8:01 AM CDT 02/15/2022 8:01 AM CDT Antoinette Reed MD LAB POCT ORDERABLES - DEVICE Final Result MARY JANE 8062 [facility] Department [place] [address] * eGFR (02/15/2022 3:08 AM [...] was last reviewed 2021. Testing performed by: [facility], [address] [place] [address]., [address] Blood 02/15/2022 3:08 AM CDT 02/15/2022 4:23 AM CDT us Reynaldoeleni Kathi ACEVEDO LAB BLOOD ORDERABLES Final Resul t MARY JANE 6466 [facility] Department [place] [address] * (ABNORMAL) Differential, auto (02/15/2022 3:08 AM CDT) Neutrophil abs 10.6(H) 1.7 - 6.5 K/cumm MARY JANE Comment:Testing performed by : [address] [address] Imm gran abs 0.1 0.0 - 0.1 K/cumm MARY JANE Comment:Testing performed by : [address] [address] Lymphocyte abs 2.8 0.8 - 3.3 K/cumm MARY JANE Comment:Testing performed by : [address] [address] Monocyte abs 0.9(H) 0.2 - 0.8 K/cumm MARY JANE Comment:Testing performed by : [address] [address] Eosinophil abs 0.2 0.0 - 0.5 K/cumm MARY JANE Comment:Testing performed by : [address] [address] Basophil abs 0.0 0.0 - 0.1 K/cumm MARY JANE Comment:Testing performed by : [address] [address] Neutrophil pct 72.8 % MARY JANE Comment: Interpretive Data Percent cell count reference ranges are not reported, since discordance with absolute values may lead to misinterpretation of CBC data. Current Interpretive Data was last revised on 2017. Testing performed by: [address] [address] Imm gran pct 0.4 % MARY JANE Comment: Interpretive Data Percent cell count reference ranges are not reported, since discordance with absolute values may lead to misinterpretation of CBC data. Current Interpretive Data was last revised on 2017. Testing performed by: [address] [address] Lymphocyte pct 19.6 % MARY JANE Comment: Interpretive Data Percent cell count reference ranges are not reported, since discordance with absolute values may lead to misinterpretation of CBC data. Current Interpretive Data was last revised on 2017. Testing performed by: [address] [address] Monocyte pct 5.9 % MARY JANE Comment: Interpretive Data Percent cell count reference ranges are not reported, since discordance with absolute values may lead to misinterpretation of CBC data. Current Interpretive Data was last revised on 2017. Testing performed by: [address] [address] Eosinophil pct 1.1 % MARY JANE Comment: Interpretive Data Percent cell count reference ranges are not reported, since discordance with absolute values may lead to misinterpretation of CBC data. Current Interpretive Data was last revised on 2017. Testing performed by: [address] [address] Basophil pct 0.2 % MARY JANE Comment: Interpretive Data Percent cell count reference ranges are not reported, since discordance with absolute values may lead to misinterpretation of CBC data. Current Interpretive Data was last revised on 2017. Testing performed by: [address] [address] Blood 02/15/2022 3:08 AM CDT 02/15/2022 4:24 AM CDT us Blaze Armenta NP LAB BLOOD ORDERABLES Final Resul t M[place] JANE 0058 [facility] Department [place] [address] * (ABNORMAL) CBC with auto differential (02/15/2022 3:08 AM CDT) WBC 14.5(H) 3.8 - 9.9 K/cumm MARY JANE Comment:Testing performed by : [address] [address] Hgb 12.3 11.9 - 15.5 g/dL MARY JANE Comment:Testing performed by : [address] [address] Hct 38.9 35.6 - 45.5 % MARY JANE Comment:Testing performed by : [address] [address] Plt 280 150 - 400 K/cumm MARY JANE Comment:Testing performed by : [address], [address] MPV 9.9 9.1 - 12.3 fL MARY JANE Comment:Testing performed by : [address], [address] RBC 4.21 3.90 - 5.20 M/cumm MARY JANE Comment:Testing performed by : [address], [address] MCV 92.4 81.3 - 96.4 fL MARY JANE Comment:Testing performed by : [address] [address] MCH 29.2 27.1 - 33.3 pg MARY JANE Comment:Testing performed by : [address] [address] MCHC 31.6(L) 32.3 - 35.7 g/dL MARY JANE Comment:Testing performed by : [address], [address] RDW CV 14.3 11.1 - 14.9 % MARY JANE Comment:Testing performed by : [address] [address] RDW SD 48.3(H) 35.7 - 48.1 fL MARY JANE Comment:Testing performed by : [address], [address] NRBC abs 0.00 0.00 - 0.01 K/cumm MARY JANE Comment:Testing performed by : [address] [address] Blood 02/15/2022 3:08 AM CDT 02/15/2022 4:24 AM CDT us Blaze Armenta NP LAB BLOOD ORDERABLES Final Resul t MARY JANE 8111 [facility] Department [place] [address] * (ABNORMAL) Basic metabolic panel (02/15/2022 3:08 AM CDT) Sodium 137 135 - 145 mmol/L MARY JANE Comment:Testing performed by : [address] [address] Potassium, pl 4.4 3.3 - 4.9 mmol/L MARY JANE Comment:Testing performed by : [address] [address] Chloride 102 97 - 110 mmol/L MARY JANE Comment:Testing performed by : [address] [address] CO2 23 22 - 32 mmol/L MARY JANE Comment:Testing performed by : [address] [address] Anion gap 12 2 - 15 mmol/L MARY JANE Comment:Testing performed by : [address] [address] BUN 17 8 - 25 mg/dL MARY JANE Comment:Testing performed by : [address] [address] Creatinine 0.50(L) 0.60 - 1.10 mg/dL MARY JANE Comment:Testing performed by : [address] [address] Glucose 142 70 - 199 mg/dL MARY [...] last revised 2017. Testing performed by: [address] [address] Calcium 9.2 8.5 - 10.3 mg/dL MARY JANE PHAM Comment:Testing performed by : [address] [address] Blood 02/15/2022 3:08 AM CDT 02/15/2022 4:23 AM CDT Blaze Armenta NP LAB BLOOD ORDERABLES Final Resul t Performing Organization Address City/[facility]/ZIP Co de Phone Number [address] [employer] [place] [address] * POCT glucose (02/14/2022 8:51 PM CDT) Glucose, POC 168 70 - 199 mg/dL MARY JANE Comment:Testing performed by : [address] [address] Blood 02/14/2022 8:51 PM CDT 02/14/2022 8:51 PM CDT Neha Solo MD LAB POCT ORDERABLES - NILESH CE Final Result Performing Organization Address [facility] Co de Phone Number [address] [address] * POCT glucose (02/14/2022 4:40 PM CDT) Glucose, POC 160 70 - 199 mg/dL MARY JANE Comment:Testing performed by : [address] [address] Glucose comment 1 Use This Result MARY JANE PHAM Comment:Testing performed by : [address] [address] Blood 02/14/2022 4:40 PM CDT 02/14/2022 4:40 PM CDT us Neha Solo MD LAB POCT ORDERABLES - NILESH CE Final Result Performing Organization Address [facility] Co de Phone Number MARY JANE 21[address] [facility] [employer] [place], [place] [id number] * eGFR (02/14/2022 12:24 PM CDT) eGFR [...] was last reviewed 2021. Testing performed by: [facility], [address] [place] [address]., [address] Blood 02/14/2022 12:2 4 PM CDT 02/14/2022 12:39 PM CDT Neha Solo MD LAB BLOOD ORDERABLES Final Result Performing Organization Address City/[facility] Co de Phone Number MARY JANE 6984 [facility] [address] * (ABNORMAL) Differential, auto (02/14/2022 12:24 PM CDT) Neutrophil abs 14.1(H) 1.7 - 6.5 K/cumm MARY JANE Comment:Testing performed by : [address] [address] Imm gran abs 0.1 0.0 - 0.1 K/cumm MARY JANE Comment:Testing performed by : [address] [address] Lymphocyte abs 2.7 0.8 - 3.3 K/cumm MARY JANE Comment:Testing performed by : [address] [address] Monocyte abs 1.2(H) 0.2 - 0.8 K/cumm MARY JANE Comment:Testing performed by : [address] [address] Eosinophil abs 0.2 0.0 - 0.5 K/cumm MARY JANE Comment:Testing performed by : [address] [address] Basophil abs 0.1 0.0 - 0.1 K/cumm MARY JANE Comment:Testing performed by : [address] [address] Neutrophil pct 77.3 % MARY JANE Comment: Interpretive Data Percent cell count reference ranges are not reported, since discordance with absolute values may lead to misinterpretation of CBC data. Current Interpretive Data was last revised on 2017. Testing performed by: [address] [address] Imm gran pct 0.5 % [facility] Comment: Interpretive Data Percent cell count reference ranges are not reported, since discordance with absolute values may lead to misinterpretation of CBC data. Current Interpretive Data was last revised on 2017. Testing performed by: [address] [address] Lymphocyte pct 14.8 % [facility] Comment: Interpretive Data Percent cell count reference ranges are not reported, since discordance with absolute values may lead to misinterpretation of CBC data. Current Interpretive Data was last revised on 2017. Testing performed by: [address] [address] Monocyte pct 6.3 % MARY JANE Comment: Interpretive Data Percent cell count reference ranges are not reported, since discordance with absolute values may lead to misinterpretation of CBC data. Current Interpretive Data was last revised on 2017. Testing performed by: [address] [address] Eosinophil pct 0.8 % MARY JANE Comment: Interpretive Data Percent cell count reference ranges are not reported, since discordance with absolute values may lead to misinterpretation of CBC data. Current Interpretive Data was last revised on 2017. Testing performed by: [address] [address] Basophil pct 0.3 % MARY JANE Comment: Interpretive Data Percent cell count reference ranges are not reported, since discordance with absolute values may lead to misinterpretation of CBC data. Current Interpretive Data was last revised on 2017. Testing performed by: [address] [address] Blood 02/14/2022 12:2 4 PM CDT 02/14/2022 12:39 PM CDT Neha Solo MD LAB BLOOD ORDERABLES Final Result [facility] 6[address] [facility] Department [place] [address] * Basic metabolic panel (02/14/2022 12:24 PM CDT) Sodium 137 135 - 145 mmol/L MARY JANE PHAM Comment:Testing performed by : [address] [address] Potassium, pl 4.2 3.3 - 4.9 mmol/L MARY JANE PHAM Comment:Testing performed by : [address] [address] Chloride 100 97 - 110 mmol/L MARY JANE Comment:Testing performed by : [address] [place] [address] CO2 27 22 - 32 mmol/L MARY JANE Comment:Testing performed by : [address] [address] Anion gap 10 2 - 15 mmol/L MARY JANE Comment:Testing performed by : [address] [address] BUN 19 8 - 25 mg/dL MARY JANE Comment:Testing performed by : [address] [address] Creatinine 0.60 0.60 - 1.10 mg/dL MARY JANE Comment:Testing performed by : [address] [address] Glucose 111 70 - 199 mg/dL MARY [...] last revised 2017. Testing performed by: [address] [address] Calcium 9.7 8.5 - 10.3 mg/dL MARY JANE Comment:Testing performed by : [address] [address] Blood 02/14/2022 12:2 4 PM CDT 02/14/2022 12:39 PM CDT Neha Solo MD LAB BLOOD ORDERABLES Final Result MARY JANE PHAM 86[address] [facility] Department of Laboratories [place], [place] [id number] * (ABNORMAL) CBC with auto differential (02/14/2022 12:24 PM CDT) Pathologist [facility] WBC 18.2(H) 3.8 - 9.9 K/cumm MARY JANE Comment:Testing performed by : [address], [address] Hgb 14.6 11.9 - 15.5 g/dL MARY JANE Comment:Testing performed by : [address], [address] Hct 46.3(H) 35.6 - 45.5 % MARY JANE Comment:Testing performed by : [address], [address] Plt 290 150 - 400 K/cumm MARY JANE Comment:Testing performed by : [address], [address] MPV 10.1 9.1 - 12.3 fL MARY JANE Comment:Testing performed by : [address], [address] RBC 5.03 3.90 - 5.20 M/cumm MARY JANE Comment:Testing performed by : [address], [address] MCV 92.0 81.3 - 96.4 fL MARY JANE Comment:Testing performed by : [address], [address] MCH 29.0 27.1 - 33.3 pg MARY JANE Comment:Testing performed by : [address], [address] MCHC 31.5(L) 32.3 - 35.7 g/dL MARY JANE Comment:Testing performed by : [address], [address] RDW CV 14.2 11.1 - 14.9 % MARY JANE Comment:Testing performed by : [address], [address] RDW SD 48.0 35.7 - 48.1 fL MARY JANE Comment:Testing performed by : [address], [address] NRBC abs 0.00 0.00 - 0.01 K/cumm MARY JANE Comment:Testing performed by : [address] [place] [address] Blood 02/14/2022 12:2 4 PM CDT 02/14/2022 12:39 PM CDT Result [facility] Neha Solo MD LAB BLOOD ORDERABLES Final Result Performing Organization Address [facility] Co de Phone Number MARY JANE [address] [place] [address] * POCT glucose (02/14/2022 11:16 AM CDT) Glucose, POC 118 70 - 199 mg/dL MARY JANE Comment:Testing performed by : [address] [address] Glucose comment 1 Use This Result MARY JANE Comment:Testing performed by : [address] [address] Blood 02/14/2022 11:1 6 AM CDT 02/14/2022 11:16 AM CDT Result [facility] Neha Solo MD LAB POCT ORDERABLES - NILESH CE Final Result Performing Organization Address [facility] de Phone Number [place] [id number] [place] [address] * POCT glucose (02/14/2022 7:56 AM CDT) Glucose, POC 133 70 - 199 mg/dL MARY JANE Comment:Testing performed by : [facility], [address] [place] [address]., [address] Glucose comment 1 Use This Result MARY JANE Comment:Testing performed by : [address] [address] Blood 02/14/2022 7:56 AM CDT 02/14/2022 7:56 AM CDT Result [facility] Neha Solo MD LAB POCT ORDERABLES - NILESH CE Final Result Performing Organization Address City/[facility] Co de Phone Number MARY JANE [address] [place] [address] * POCT glucose (02/13/2022 8:04 PM CDT) Glucose, POC 199 70 - 199 mg/dL MARY JANE Comment:Testing performed by : [address] [address] Blood 02/13/2022 8:04 PM CDT 02/13/2022 8:04 PM CDT Neha Solo MD LAB POCT ORDERABLES - NILESH CE Final Result Performing Organization Address [facility] Co de Phone Number MARY JANE [address] [place] [address] * POCT glucose (02/13/2022 5:19 PM CDT) Glucose, POC 100 70 - 199 mg/dL MARY JANE Comment:Testing performed by : [address] [address] Glucose comment 1 Use This Result MARY JANE Comment:Testing performed by : [address] [address] Blood 02/13/2022 5:19 PM CDT 02/13/2022 5:19 PM CDT Neha Solo MD LAB POCT ORDERABLES - NILESH CE Final Result Performing Organization Address City/[facility] Co de Phone Number [address] [address] * POCT glucose (02/13/2022 11:48 AM CDT) Glucose, POC 145 70 - 199 mg/dL MARY JANE Comment:Testing performed by : [address] [address] Glucose comment 1 Use This Result MARY JANE Comment:Testing performed by : [address] [address] Blood 02/13/2022 11:4 8 AM CDT 02/13/2022 11:48 AM CDT Neha Solo MD LAB POCT ORDERABLES - NILESH CE Final Result Performing Organization Address [facility] de Phone Number MARY JANE [address] [facility] [employer] [place] [address] * POCT glucose (02/13/2022 7:55 AM CDT) Pathologist [facility] Glucose, POC 135 70 - 199 mg/dL MARY JANE Comment:Testing performed by : [facility], [address] [place] [address]., [address] Glucose comment 1 Use This Result MARY JANE Comment:Testing performed by : [facility], [address] [place] [address]., [address] Blood 02/13/2022 7:55 AM CDT 02/13/2022 7:55 AM CDT Neha Solo MD LAB POCT ORDERABLES - NILESH CE Final Result Performing Organization Address [facility] de Phone Number [facility] [address] [place] [address] * eGFR (02/13/2022 7:25 AM CDT) Pathologist [facility] eGFR 100 mL/min/1. 73 m2 MARY JANE [...] last reviewed 2021. Testing performed by: [address] [address] Blood 02/13/2022 7:25 AM CDT 02/13/2022 7:33 AM CDT us Blaze Armenta NP LAB BLOOD ORDERABLES Final Resul t MARY JANE [facility] Department of Laboratories [place], [place] [id number] * (ABNORMAL) Differential, auto (02/13/2022 7:25 AM CDT) Neutrophil abs 10.6(H) 1.7 - 6.5 K/cumm MARY JANE Comment:Testing performed by : [address] [address] Imm gran abs 0.1 0.0 - 0.1 K/cumm MARY JANE Comment:Testing performed by : [address] [address] Lymphocyte abs 2.9 0.8 - 3.3 K/cumm MARY JANE Comment:Testing performed by : [address] [address] Monocyte abs 1.1(H) 0.2 - 0.8 K/cumm MARY JANE Comment:Testing performed by : [address] [address] Eosinophil abs 0.2 0.0 - 0.5 K/cumm MARY JANE Comment:Testing performed by : [address] [address] Basophil abs 0.0 0.0 - 0.1 K/cumm MARY JANE Comment:Testing performed by : [address] [address] Neutrophil pct 71.0 % MARY JANE Comment: Interpretive Data Percent cell count reference ranges are not reported, since discordance with absolute values may lead to misinterpretation of CBC data. Current Interpretive Data was last revised on 2017. Testing performed by: [address] [address] Imm gran pct 0.5 % MARY JANE Comment: Interpretive Data Percent cell count reference ranges are not reported, since discordance with absolute values may lead to misinterpretation of CBC data. Current Interpretive Data was last revised on 2017. Testing performed by: [address] [address] Lymphocyte pct 19.7 % MARY JANE Comment: Interpretive Data Percent cell count reference ranges are not reported, since discordance with absolute values may lead to misinterpretation of CBC data. Current Interpretive Data was last revised on 2017. Testing performed by: [address] [address] Monocyte pct 7.2 % MARY JANE Comment: Interpretive Data Percent cell count reference ranges are not reported, since discordance with absolute values may lead to misinterpretation of CBC data. Current Interpretive Data was last revised on 2017. Testing performed by: [address] [address] Eosinophil pct 1.3 % MARY JANE Comment: Interpretive Data Percent cell count reference ranges are not reported, since discordance with absolute values may lead to misinterpretation of CBC data. Current Interpretive Data was last revised on 2017. Testing performed by: [address] [address] Basophil pct 0.3 % MARY JANE Comment: Interpretive Data Percent cell count reference ranges are not reported, since discordance with absolute values may lead to misinterpretation of CBC data. Current Interpretive Data was last revised on 2017. Testing performed by: [address] [address] Blood 02/13/2022 7:25 AM CDT 02/13/2022 7:35 AM CDT us Blaze Armenta NP LAB BLOOD ORDERABLES Final Resul t MARY JANE [facility] Department [place] [address] * (ABNORMAL) CBC with auto differential (02/13/2022 7:25 AM CDT) WBC 14.9(H) 3.8 - 9.9 K/cumm MARY JANE PHAM Comment:Testing performed by : [address] [address] Hgb 13.5 11.9 - 15.5 g/dL MARY JANE PHAM Comment:Testing performed by : [address] [address] Hct 42.7 35.6 - 45.5 % MARY JANE PHAM Comment:Testing performed by : [address] [address] Plt 291 150 - 400 K/cumm MARY JANE Comment:Testing performed by : [address] [address] MPV 9.6 9.1 - 12.3 fL MARY JANE PHAM Comment:Testing performed by : [address] [address] RBC 4.67 3.90 - 5.20 M/cumm MARY JANE PHAM Comment:Testing performed by : [address] [address] MCV 91.4 81.3 - 96.4 fL MARY JANE PHAM Comment:Testing performed by : [address] [address] MCH 28.9 27.1 - 33.3 pg MARY JANE PHAM Comment:Testing performed by : [address] [address] MCHC 31.6(L) 32.3 - 35.7 g/dL MARY JANE PHAM Comment:Testing performed by : [address] [address] RDW CV 14.2 11.1 - 14.9 % MARY JANE PHAM Comment:Testing performed by : [address] [address] RDW SD 47.5 35.7 - 48.1 fL MARY JANE PHAM Comment:Testing performed by : [address] [address] NRBC abs 0.00 0.00 - 0.01 K/cumm MARY JANE PHAM Comment:Testing performed by : [address] [address] Blood 02/13/2022 7:25 AM CDT 02/13/2022 7:35 AM CDT us Blaze Armenta MANAGEMENT TECHNICIAN LAB BLOOD ORDERABLES Final Resul t Performing Organization Address City/State/[facility] Co de Phone Number MARY JANE PHAM [address] [place] [address] Department [place] [address] * Basic metabolic panel (02/13/2022 7:25 AM CDT) Sodium 135 135 - 145 mmol/L MARY JANE PHAM Comment:Testing performed by : [address] [address] Potassium, pl 4.5 3.3 - 4.9 mmol/L MARY JANE PHAM Comment:Testing performed by : [address] [address] Chloride 101 97 - 110 mmol/L MARY JANE PHAM Comment:Testing performed by : [address] [address] CO2 26 22 - 32 mmol/L MARY JANE PHAM Comment:Testing performed by : [address] [address] Anion gap 8 2 - 15 mmol/L MARY JANE PHAM Comment:Testing performed by : [address] [address] BUN 19 8 - 25 mg/dL MARY JANE PHAM Comment:Testing performed by : [address] [address] Creatinine 0.60 0.60 - 1.10 mg/dL MARY JANE Comment:Testing performed by : [address] [address] Glucose 162 70 - 199 mg/dL MARY [...] last revised 2017. Testing performed by: [address] [address] Calcium 9.8 8.5 - 10.3 mg/dL MARY JANE Comment:Testing performed by : [address] [address] Blood 02/13/2022 7:25 AM CDT 02/13/2022 7:33 AM CDT Blaze [place]et[place] NP LAB BLOOD ORDERABLES Final Resul t Performing Organization Address City/[facility] Co de Phone Number [facility] [address] [facility] Department of Laboratories [place], [place] [id number] * POCT glucose (02/12/2022 8:38 PM CDT) Glucose, POC 199 70 - 199 mg/dL MARY JANE Comment:Testing performed by : [address] [address] Blood 02/12/2022 8:38 PM CDT 02/12/2022 8:38 PM CDT Neha Solo MD LAB POCT ORDERABLES - NILESH CE Final Result Performing Organization Address City/State/[facility] Co de Phone Number [address] [address] * POCT glucose (02/12/2022 4:43 PM CDT) Glucose, POC 179 70 - 199 mg/dL MARY JANE Comment:Testing performed by : [address] [address] Glucose comment 1 Use This Result MARY JANE Comment:Testing performed by : [address] [address] Blood 02/12/2022 4:43 PM CDT 02/12/2022 4:43 PM CDT Neha Solo MD LAB POCT ORDERABLES - NILESH CE Final Result Performing Organization Address [facility] de Phone Number [address] [address] * POCT glucose (02/12/2022 12:21 PM CDT) Glucose, POC 125 70 - 199 mg/dL MARY JANE Comment:Testing performed by : [address] [address] Glucose comment 1 Use This Result MARY JANE Comment:Testing performed by : [address] [address] Blood 02/12/2022 12:2 1 PM CDT 02/12/2022 12:21 PM CDT Neha Solo MD LAB POCT ORDERABLES - NILESH CE Final Result Performing Organization Address City/[facility] Co de Phone Number [address] [address] * POCT glucose (02/12/2022 7:17 AM CDT) Glucose, POC 172 70 - 199 mg/dL MARY JANE Comment:Testing performed by : [address] [address] Glucose comment 1 Use This Result MARY JANE PHAM Comment:Testing performed by : [facility], [address] [place] [address]., [address] Blood 02/12/2022 7:17 AM CDT 02/12/2022 7:17 AM CDT Neha Solo MD LAB POCT ORDERABLES - NILESH CE Final Result Performing Organization Address City/State/[facility] Co de Phone Number BCPU[facility] [address] [facility] Department [place] [address] * eGFR (02/12/2022 5:24 AM CDT) eGFR [...] was last reviewed 2021. Testing performed by: [facility], [address] [place] [address]., [address] Blood 02/12/2022 5:24 AM CDT 02/12/2022 5:37 AM CDT us Blaze Armenta NP LAB BLOOD ORDERABLES Final Resul t MARY JANE [address] [facility] Department [place] [address] * (ABNORMAL) Differential, auto (02/12/2022 5:24 AM CDT) Neutrophil abs 11.1(H) 1.7 - 6.5 K/cumm MARY JANE Comment:Testing performed by : [address] [address] Imm gran abs 0.1 0.0 - 0.1 K/cumm MARY JANE Comment:Testing performed by : [address] [address] Lymphocyte abs 3.1 0.8 - 3.3 K/cumm MARY JANE Comment:Testing performed by : [address] [address] Monocyte abs 1.0(H) 0.2 - 0.8 K/cumm MARY JANE Comment:Testing performed by : [address] [address] Eosinophil abs 0.2 0.0 - 0.5 K/cumm MARY JANE Comment:Testing performed by : [address] [address] Basophil abs 0.1 0.0 - 0.1 K/cumm MARY JANE Comment:Testing performed by : [address] [address] Neutrophil pct 71.4 % MARY JANE Comment: Interpretive Data Percent cell count reference ranges are not reported, since discordance with absolute values may lead to misinterpretation of CBC data. Current Interpretive Data was last revised on 2017. Testing performed by: [address] [address] Imm gran pct 0.5 % MARY JANE Comment: Interpretive Data Percent cell count reference ranges are not reported, since discordance with absolute values may lead to misinterpretation of CBC data. Current Interpretive Data was last revised on 2017. Testing performed by: [address] [address] Lymphocyte pct 19.9 % MARY JANE Comment: Interpretive Data Percent cell count reference ranges are not reported, since discordance with absolute values may lead to misinterpretation of CBC data. Current Interpretive Data was last revised on 2017. Testing performed by: [address] [address] Monocyte pct 6.6 % MARY JANE Comment: Interpretive Data Percent cell count reference ranges are not reported, since discordance with absolute values may lead to misinterpretation of CBC data. Current Interpretive Data was last revised on 2017. Testing performed by: [address] [address] Eosinophil pct 1.3 % MARY JANE Comment: Interpretive Data Percent cell count reference ranges are not reported, since discordance with absolute values may lead to misinterpretation of CBC data. Current Interpretive Data was last revised on 2017. Testing performed by: [address] [address] Basophil pct 0.3 % MARY JANE Comment: Interpretive Data Percent cell count reference ranges are not reported, since discordance with absolute values may lead to misinterpretation of CBC data. Current Interpretive Data was last revised on 2017. Testing performed by: [address] [address] Blood 02/12/2022 5:24 AM CDT 02/12/2022 5:36 AM CDT us Blaze Armenta NP LAB BLOOD ORDERABLES Final Resul t MARY JANE PHAM [phone] [facility] Department [place] [address] * (ABNORMAL) CBC with auto differential (02/12/2022 5:24 AM CDT) WBC 15.6(H) 3.8 - 9.9 K/cumm MARY JANE PHAM Comment:Testing performed by : [address] [address] Hgb 12.4 11.9 - 15.5 g/dL MARY JANE Comment:Testing performed by : [address] [address] Hct 40.3 35.6 - 45.5 % MARY JANE Comment:Testing performed by : [address] [address] Plt 297 150 - 400 K/cumm MARY JANE Comment:Testing performed by : [address] [address] MPV 9.7 9.1 - 12.3 fL MARY JANE Comment:Testing performed by : [address] [address] RBC 4.37 3.90 - 5.20 M/cumm MARY JANE Comment:Testing performed by : [address] [address] MCV 92.2 81.3 - 96.4 fL MARY JANE Comment:Testing performed by : [address] [address] MCH 28.4 27.1 - 33.3 pg MARY JANE Comment:Testing performed by : [address] [address] MCHC 30.8(L) 32.3 - 35.7 g/dL MARY JANE Comment:Testing performed by : [address] [address] RDW CV 14.1 11.1 - 14.9 % MARY JANE Comment:Testing performed by : [address] [address] RDW SD 47.8 35.7 - 48.1 fL MARY JANE Comment:Testing performed by : [address] [address] NRBC abs 0.00 0.00 - 0.01 K/cumm MARY JANE Comment:Testing performed by : [address], [address] Blood 02/12/2022 5:24 AM CDT 02/12/2022 5:36 AM CDT us Blaze Armenta NP LAB BLOOD ORDERABLES Final Resul t MARY JANE [address] [facility] Department [place] [address] * Basic metabolic panel (02/12/2022 5:24 AM CDT) Sodium 137 135 - 145 mmol/L MARY JANE Comment:Testing performed by : [address] [address] Potassium, pl 4.4 3.3 - 4.9 mmol/L MARY JANE Comment:Testing performed by : [address] [address] Chloride 102 97 - 110 mmol/L MARY JANE Comment:Testing performed by : [address] [address] CO2 27 22 - 32 mmol/L MARY JANE Comment:Testing performed by : [address] [address] Anion gap 8 2 - 15 mmol/L MARY JANE Comment:Testing performed by : [address] [address] BUN 25 8 - 25 mg/dL MARY JANE Comment:Testing performed by : [address] [address] Creatinine 0.70 0.60 - 1.10 mg/dL MARY JANE Comment:Testing performed by : [address] [address] Glucose 166 70 - 199 mg/dL MARY [...] last revised 2017. Testing performed by: [address] [address] Calcium 9.3 8.5 - 10.3 mg/dL MARY JANE Comment:Testing performed by : [address] [address] Blood 02/12/2022 5:24 AM CDT 02/12/2022 5:37 AM CDT Blaze Armenta NP LAB BLOOD ORDERABLES Final Resul t Performing Organization Address [facility] de Phone Number [address] [place] [address] * (ABNORMAL) POCT glucose (02/11/2022 7:58 PM CDT) Glucose, POC 268(H) 70 - 199 mg/dL MARY JANE Comment:Testing performed by : [address] [address] Glucose comment 1 Use This Result MARY JANE Comment:Testing performed by : [address] [address] Blood 02/11/2022 7:58 PM CDT 02/11/2022 7:58 PM CDT us Neha Solo MD LAB POCT ORDERABLES - NILESH CE Final Result Performing Organization Address City/[facility] Co de Phone Number [address] [place] [address] * POCT glucose (02/11/2022 3:59 PM CDT) Glucose, POC 130 70 - 199 mg/dL MARY JANE Comment:Testing performed by : [address] [address] Glucose comment 1 Use This Result MARY JANE Comment:Testing performed by : [address] [address] Blood 02/11/2022 3:59 PM CDT 02/11/2022 3:59 PM CDT Neha Solo MD LAB POCT ORDERABLES - NILESH CE Final Result MARY JANE 0440 [facility] Department of Laboratories [place], [place] [id number] * COVID-19 Coronavirus RNA Nasopharyngeal (02/11/2022 12:16 PM CDT) COVID-19 RNA Negative Negative MARY JANE Comment:Testing performed by : [facility], [address] [place] [address]., [address] Nasopharyngeal 02/11/2022 12 :16 PM CDT 02/11/2022 12:23 PM CDT Narrative [facility] - 02/11/2022 12:59 PM CDT Retest Is the patient experiencing any symptoms consistent with COVID (eg. Fever, cough, shortness of breath)?->No What is the reason for testing?->Known exposure to confirmed/suspected COVID-19 case (Rapid) ??Interpretive data: Synonyms for this test include: PCR and NAAT . ??This test is performed using the [employer] Xpert Xpress plus assay. This is a [...] . ??This test is performed using the [employer] Xpert Xpress plus assay. This is a [...] data last revised September 22, 2021. Result [facility] Neha Solo MD LAB MICROBIOLOGY - GENERAL ORDERABLES Final Result Performing Organization Address City/[facility] Co de Phone Number MARY JANE [address] [address] * POCT glucose (02/11/2022 11:48 AM CDT) Glucose, POC 125 70 - 199 mg/dL MARY JANE Comment:Testing performed by : [address] [address] Glucose comment 1 Use This Result MARY JANE Comment:Testing performed by : [address] [address] Blood 02/11/2022 11:4 8 AM CDT 02/11/2022 11:48 AM CDT Result [facility] Neha Solo MD LAB POCT ORDERABLES - NILESH CE Final Result Performing Organization Address [facility] de Phone Number [address] [address] * POCT glucose (02/11/2022 7:52 AM CDT) Glucose, POC 175 70 - 199 mg/dL MARY JNAE Comment:Testing performed by : [address] [address] Glucose comment 1 Use This Result MARY JANE Comment:Testing performed by : [address] [address] Blood 02/11/2022 7:52 AM CDT 02/11/2022 7:52 AM CDT Result [facility] Neha Solo MD LAB POCT ORDERABLES - NILESH CE Final Result Performing Organization Address City/[facility] Co de Phone Number [address] [address] * eGFR (02/11/2022 2:55 AM CDT) eGFR [...] was last reviewed 2021. Testing performed by: [facility], [address] [place] [address]., [address] Blood 02/11/2022 2:55 AM CDT 02/11/2022 4:13 AM CDT us Genaro Coy MD LAB BLOOD ORDERABLES Final R esult MARY JANE PHAM [phone] [facility] Department [place] [address] * (ABNORMAL) Differential, auto (02/11/2022 2:55 AM CDT) Pathologist [facility] Neutrophil abs 11.5(H) 1.7 - 6.5 K/cumm MARY JANE PHAM Comment:Testing performed by : [address] [address] Imm gran abs 0.1 0.0 - 0.1 K/cumm MARY JANE Comment:Testing performed by : [address] [address] Lymphocyte abs 2.9 0.8 - 3.3 K/cumm MARY JANE Comment:Testing performed by : [address] [address] Monocyte abs 1.1(H) 0.2 - 0.8 K/cumm [facility] Comment:Testing performed by : [address], [place]., [address] Eosinophil abs 0.2 0.0 - 0.5 K/cumm [facility] Comment:Testing performed by : [address] [address] Basophil abs 0.0 0.0 - 0.1 K/cumm [facility] Comment:Testing performed by : [address] [address] Neutrophil pct 72.9 % [facility] Comment: Interpretive Data Percent cell count reference ranges are not reported, since discordance with absolute values may lead to misinterpretation of CBC data. Current Interpretive Data was last revised on 2017. Testing performed by: [address] [address] Imm gran pct 0.6 % CERNER Comment: Interpretive Data Percent cell count reference ranges are not reported, since discordance with absolute values may lead to misinterpretation of CBC data. Current Interpretive Data was last revised on 2017. Testing performed by: [address] [address] Lymphocyte pct 18.3 % CERNER Comment: Interpretive Data Percent cell count reference ranges are not reported, since discordance with absolute values may lead to misinterpretation of CBC data. Current Interpretive Data was last revised on 2017. Testing performed by: [address] [address] Monocyte pct 6.6 % CERNER Comment: Interpretive Data Percent cell count reference ranges are not reported, since discordance with absolute values may lead to misinterpretation of CBC data. Current Interpretive Data was last revised on 2017. Testing performed by: [address] [address] Eosinophil pct 1.3 % MARY JANE Comment: Interpretive Data Percent cell count reference ranges are not reported, since discordance with absolute values may lead to misinterpretation of CBC data. Current Interpretive Data was last revised on 2017. Testing performed by: [address] [address] Basophil pct 0.3 % MARY JANE Comment: Interpretive Data Percent cell count reference ranges are not reported, since discordance with absolute values may lead to misinterpretation of CBC data. Current Interpretive Data was last revised on 2017. Testing performed by: [address] [address] Blood 02/11/2022 2:55 AM CDT 02/11/2022 4:13 AM CDT us Blaze Armenta NP LAB BLOOD ORDERABLES Final Resul t [facility] [address] [facility] Department [place] [address] * (ABNORMAL) CBC with auto differential (02/11/2022 2:55 AM CDT) WBC 15.8(H) 3.8 - 9.9 K/cumm MARY JANE Comment:Testing performed by : [address] [address] Hgb 12.7 11.9 - 15.5 g/dL MARY JANE PHAM Comment:Testing performed by : [address] [address] Hct 40.5 35.6 - 45.5 % MARY JANE PHAM Comment:Testing performed by : [address] [address] Plt 316 150 - 400 K/cumm MARY JANE Comment:Testing performed by : [address] [address] MPV 9.9 9.1 - 12.3 fL MARY JANE PHAM Comment:Testing performed by : [address] [address] RBC 4.44 3.90 - 5.20 M/cumm MARY JANE PHAM Comment:Testing performed by : [address] [address] MCV 91.2 81.3 - 96.4 fL MARY JANE PHAM Comment:Testing performed by : [address] [address] MCH 28.6 27.1 - 33.3 pg MARY JANE PHAM Comment:Testing performed by : [address] [address] MCHC 31.4(L) 32.3 - 35.7 g/dL MARY JANE PHAM Comment:Testing performed by : [address] [address] RDW CV 14.3 11.1 - 14.9 % MARY JANE PHAM Comment:Testing performed by : [address] [address] RDW SD 48.1 35.7 - 48.1 fL MARY JANE PHAM Comment:Testing performed by : [address] [address] NRBC abs 0.00 0.00 - 0.01 K/cumm MARY JANE PHAM Comment:Testing performed by : [address] [address] Blood 02/11/2022 2:55 AM CDT 02/11/2022 4:13 AM CDT us Blaze Armenta NP LAB BLOOD ORDERABLES Final Resul t MARY JANE PHAM [phone] [facility] Department [place] [address] * (ABNORMAL) Hemoglobin A1c (02/11/2022 2:55 AM CDT) Hgb A1C 7.7(H) 4.0 - 5.6 % MARY JANE PHAM Comment:Testing performed by : [address] [address] Estimated Average Glucose 174 mg/dL MARY JANE Comment: The ADA recommends reporting an estimated Average Glucose (eAG) with all Hemoglobin A1c results using the equation derived from a study of 507 normal and diabetic adults. ??Minority populations were underrepresented and children were not included. ?? (Diabetes Care 31:4848-6824, 2008). ??The eAG is not equivalent to a fasting glucose. Testing performed by: [address] [address] Blood 02/11/2022 2:55 AM CDT 02/11/2022 4:13 AM CDT us Genaro Coy MD LAB BLOOD ORDERABLES Final R esult MARY JANE 45[address] [facility] Department [place] [address] * Comprehensive metabolic panel (02/11/2022 2:55 AM CDT) Sodium 136 135 - 145 mmol/L MARY JANE Comment:Testing performed by : [address] [address] Potassium, pl 4.4 3.3 - 4.9 mmol/L MARY JANE Comment:Testing performed by : [address] [address] Chloride 98 97 - 110 mmol/L MARY JANE Comment:Testing performed by : [address] [address] CO2 27 22 - 32 mmol/L MARY JANE Comment:Testing performed by : [address] [address] Anion gap 11 2 - 15 mmol/L MARY JANE Comment:Testing performed by : [address] [address] BUN 22 8 - 25 mg/dL MARY JANE Comment:Testing performed by : [address] [address] Creatinine 0.70 0.60 - 1.10 mg/dL MARY JANE Comment:Testing performed by : [address] [address] Glucose 140 70 - 199 mg/dL MARY [...] last revised 2017. Testing performed by: [address] [address] Calcium 9.7 8.5 - 10.3 mg/dL MARY JANE Comment:Testing performed by : [address] [address] Bilirubin, total 0.8 0.1 - 1.2 mg/dL [facility] Comment:Testing performed by : [address] [address] Protein, pl 7.9 6.5 - 8.5 g/dL [facility] Comment:Testing performed by : [address] [address] Albumin 3.7 3.5 - 5.0 g/dL [facility] Comment:Testing performed by : [address] [address] Alk phos 102 40 - 130 Units/L [facility] Comment:Testing performed by : [address] [address] ALT 19 7 - 45 Units/L [facility] Comment:Testing performed by : [address] [address] AST 15 10 - 45 Units/L MARY JANE Comment:Testing performed by : [address] [address] Blood 02/11/2022 2:55 AM CDT 02/11/2022 4:13 AM CDT Genaro Coy MD LAB BLOOD ORDERABLES Final R esult Performing Organization Address [facility] Co de Phone Number MARY JANE [address] [employer] [place] [address] * (ABNORMAL) POCT glucose (02/10/2022 7:49 PM CDT) Glucose, POC 227(H) 70 - 199 mg/dL MARY JANE Comment:Testing performed by : [facility], [address] [place] [address]., [address] Glucose comment 1 Use This Result MARY JANE Comment:Testing performed by : [address] [address] Blood 02/10/2022 7:49 PM CDT 02/10/2022 7:49 PM CDT Neha Solo MD LAB POCT ORDERABLES - NILESH CE Final Result Performing Organization Address [facility] de Phone Number [address] [address] * POCT glucose (02/10/2022 5:18 PM CDT) Glucose, POC 167 70 - 199 mg/dL MARY JANE Comment:Testing performed by : [address] [address] Glucose comment 1 Use This Result MARY JANE Comment:Testing performed by : [address] [address] Blood 02/10/2022 5:18 PM CDT 02/10/2022 5:18 PM CDT Neha Solo MD LAB POCT ORDERABLES - NILESH CE Final Result Performing Organization Address City/[facility] Co de Phone Number [address] [address] * POCT glucose (02/10/2022 11:21 AM CDT) Glucose, POC 114 70 - 199 mg/dL Comment:Testing performed by : [facility], [address] [place] [address]., [address] Glucose comment 1 Use This Result [facility] Comment:Testing performed by : [address] [address] Blood 02/10/2022 11:2 1 AM CDT 02/10/2022 11:21 AM CDT Neha Solo MD LAB POCT ORDERABLES - NILESH CE Final Result Performing Organization Address [facility] Co de Phone Number [address] [place] [address] * POCT glucose (02/10/2022 8:21 AM CDT) Pathologist [facility] Glucose, POC 131 70 - 199 mg/dL MARY JANE Comment:Testing performed by : [facility], [address] [place] [address]., [address] Glucose comment 1 Use This Result MARY JANE Comment:Testing performed by : [facility], [address] [place] [address]., [address] Blood 02/10/2022 8:21 AM CDT 02/10/2022 8:21 AM CDT Result [facility] Neha Solo MD LAB POCT ORDERABLES - NILESH CE Final Result Performing Organization Address [facility] de Phone Number [address] [place] [address] * eGFR (02/10/2022 6:12 AM CDT) eGFR [...] last reviewed 2021. Testing performed by: [address] [address] Blood 02/10/2022 6:12 AM CDT 02/10/2022 6:51 AM CDT us Blaze Armenta NP LAB BLOOD ORDERABLES Final Resul t MARY JANE [address] [facility] Department of Laboratories [place], [place] [id number] * (ABNORMAL) Differential, auto (02/10/2022 6:12 AM CDT) Neutrophil abs 10.4(H) 1.7 - 6.5 K/cumm MARY JANE PHAM Comment:Testing performed by : [address] [address] Imm gran abs 0.1 0.0 - 0.1 K/cumm MARY JANE PHAM Comment:Testing performed by : [address] [address] Lymphocyte abs 2.6 0.8 - 3.3 K/cumm MARY JANE PHAM Comment:Testing performed by : [address] [address] Monocyte abs 0.9(H) 0.2 - 0.8 K/cumm [facility] Comment:Testing performed by : [address] [address] Eosinophil abs 0.2 0.0 - 0.5 K/cumm [facility] Comment:Testing performed by : [address] [address] Basophil abs 0.0 0.0 - 0.1 K/cumm [facility] Comment:Testing performed by : [address] [address] Neutrophil pct 73.5 % [facility] Comment: Interpretive Data Percent cell count reference ranges are not reported, since discordance with absolute values may lead to misinterpretation of CBC data. Current Interpretive Data was last revised on 2017. Testing performed by: [address] [address] Imm gran pct 0.4 % [facility] Comment: Interpretive Data Percent cell count reference ranges are not reported, since discordance with absolute values may lead to misinterpretation of CBC data. Current Interpretive Data was last revised on 2017. Testing performed by: [address] [address] Lymphocyte pct 18.4 % [facility] Comment: Interpretive Data Percent cell count reference ranges are not reported, since discordance with absolute values may lead to misinterpretation of CBC data. Current Interpretive Data was last revised on 2017. Testing performed by: [address] [address] Monocyte pct 6.4 % [facility] Comment: Interpretive Data Percent cell count reference ranges are not reported, since discordance with absolute values may lead to misinterpretation of CBC data. Current Interpretive Data was last revised on 2017. Testing performed by: [address] [address] Eosinophil pct 1.1 % [facility] Comment: Interpretive Data Percent cell count reference ranges are not reported, since discordance with absolute values may lead to misinterpretation of CBC data. Current Interpretive Data was last revised on 2017. Testing performed by: [address] [address] Basophil pct 0.2 % MARY JANE PHAM Comment: Interpretive Data Percent cell count reference ranges are not reported, since discordance with absolute values may lead to misinterpretation of CBC data. Current Interpretive Data was last revised on 2017. Testing performed by: [address] [address] Blood 02/10/2022 6:12 AM CDT 02/10/2022 6:52 AM CDT us Blaze Armenta NP LAB BLOOD ORDERABLES Final Resul t MARY JANE [address] [facility] Department [place] [address] * (ABNORMAL) CBC with auto differential (02/10/2022 6:12 AM CDT) WBC 14.2(H) 3.8 - 9.9 K/cumm MARY JANE PHAM Comment:Testing performed by : [address] [address] Hgb 13.1 11.9 - 15.5 g/dL MARY JANE PHAM Comment:Testing performed by : [address] [address] Hct 41.2 35.6 - 45.5 % MARY JANE PHAM Comment:Testing performed by : [address] [address] Plt 288 150 - 400 K/cumm MARY JANE PHAM Comment:Testing performed by : [address] [address] MPV 9.8 9.1 - 12.3 fL MARY JANE PHAM Comment:Testing performed by : [address] [address] RBC 4.55 3.90 - 5.20 M/cumm MARY JANE PHAM Comment:Testing performed by : [address] [address] MCV 90.5 81.3 - 96.4 fL MARY JANE PHAM Comment:Testing performed by : [address] [address] MCH 28.8 27.1 - 33.3 pg MARY JANE PHAM Comment:Testing performed by : [address] [address] MCHC 31.8(L) 32.3 - 35.7 g/dL MARY JANE PHAM Comment:Testing performed by : [address] [address] RDW CV 14.6 11.1 - 14.9 % MARY JANE PHAM Comment:Testing performed by : [address] [address] RDW SD 48.1 35.7 - 48.1 fL MARY JANE PHAM Comment:Testing performed by : [address] [address] NRBC abs 0.00 0.00 - 0.01 K/cumm MARY JANE PHAM Comment:Testing performed by : [address] [address] Blood 02/10/2022 6:12 AM CDT 02/10/2022 6:52 AM CDT us Blaze Armenta NP LAB BLOOD ORDERABLES Final Resul t MARY JANE PHAM [facility]2 [facility] Department [place] [address] * Basic metabolic panel (02/10/2022 6:12 AM CDT) Sodium 138 135 - 145 mmol/L MARY JANE PHAM Comment:Testing performed by : [address] [address] Potassium, pl 4.4 3.3 - 4.9 mmol/L MARY JANE PHAM Comment:Testing performed by : [address] [address] Chloride 101 97 - 110 mmol/L MARY JANE PHAM Comment:Testing performed by : [address] [address] CO2 28 22 - 32 mmol/L MARY JANE PHAM Comment:Testing performed by : [address] [address] Anion gap 9 2 - 15 mmol/L MARY JANE Comment:Testing performed by : [address] [address] BUN 21 8 - 25 mg/dL MARY JANE Comment:Testing performed by : [address] [address] Creatinine 0.70 0.60 - 1.10 mg/dL MARY JANE Comment:Testing performed by : [address] [address] Glucose 139 70 - 199 mg/dL MARY [...] last revised 2017. Testing performed by: [address] [address] Calcium 10.0 8.5 - 10.3 mg/dL MARY JANE Comment:Testing performed by : [address] [address] Blood 02/10/2022 6:12 AM CDT 02/10/2022 6:51 AM CDT us Blaze Armenta NP LAB BLOOD ORDERABLES Final Resul t MARY JANE PHAM [address] [facility] Department [place] [address] * POCT glucose (02/09/2022 10:27 PM CDT) [facility] Glucose, POC 161 70 - 199 mg/dL MARY JANE Comment:Testing performed by : [address] [address] Glucose comment 1 Use This Result MARY JANE PHAM Comment:Testing performed by : [facility], [address] [place] [address], [place] [address] Blood 02/09/2022 10:2 7 PM CDT 02/09/2022 10:27 PM CDT Mariel Florentino MD LAB POCT ORDERABLE S - DEVICE Final Result MARY JANE [address] [facility] Department [place] [address] * CT Chest Abdomen Pelvis W Contrast [...] PM T: ??02/09/2022 6:21 PM Report ID: [id number] Reading Location: ??[id number] Procedure Note Jagjit July Breanna, DO - [...] Dulce Danielson D.O. AC: JUDY Report ID: [id number] Reading Location: [place] [address] [address]ON IMG CT PROCEDURES Final Resu lt * Blood culture Blood Wrist, right (02/09/2022 5:09 PM CDT) Report Final Report: No growth MARY JANE PHAM Comment:Testing performed by : [facility], [address] [facility], [place]., [address] Blood (Wrist, right) 02/09/2022 5:09 PM CDT [...] organism identification may be performed using the [employer] Gram-Positive Blood Culture Assay. This assay detects microbial DNA in positive blood culture broth via hybridization of target DNA to capture oligonucleotides on a microarray. This assay has been cleared by the [place] Food and Drug Administration and its performance characteristics have been verified by the [facility]. 5. ?For questions about this culture, contact the Microbiology Laboratory at [phone]. Interpretive data was last revised on 2019. us Lila MCKEON LAB MICROBIOLOGY - GENERAL O RDERABLES Final Result MARY JANE PHAM [address] [facility] Department [place] [address] * aPTT (02/09/2022 4:55 PM CDT) aPTT 32 22 - 37 sec MARY JANE PHAM Comment: Interpretive data aPTT test has not been evaluated for monitoring heparin therapy. The anti-Xa is the preferred test. Current interpretive data was last revised on 2019. Testing performed by: [address] [address] Blood 02/09/2022 4:55 PM CDT 02/09/2022 4:57 PM CDT Lila MCKEON LAB BLOOD ORDERABLES Final R esult Performing Organization Address [facility] Co de Phone Number MARY JANE [address] [employer] [place] [address] * (ABNORMAL) Protime-INR (02/09/2022 4:55 PM CDT) PT 18.1(H) 12.0 - 14.6 sec MARY JANE Comment: Ref Range High Testing performed by: [address] [address] INR 1.5(H) 0.9 - 1.2 MARY JANE Comment: Ref Range High Interpretive data Oral anticoagulant therapeutic ranges: Venous thromboembolism prophylaxis or treatment: 2.0-3.0 CARDIOLOGY Standard range: 2.0-3.0 High-intensity range: 2.5-3.5 Refer to indication-specific guidelines for appropriate target ranges for prosthetic heart valve replacement. Current interpretive data was last revised on 2019. Testing performed by: [address] [address] Blood 02/09/2022 4:55 PM CDT 02/09/2022 4:57 PM CDT Lila MCKEON LAB BLOOD ORDERABLES Final R esult Performing Organization Address City/[facility] Co de Phone Number MARY JANE [address] [facility] [employer] [address] * Blood culture Blood Forearm, right (02/09/2022 4:55 PM CDT) Report Final Report: No growth [facility]ER[facility] PHAM Comment:Testing performed by : [facility], [address] [facility], [place]., [address] Blood (Forearm, right) 02/09/2022 4:55 PM CDT [...] organism identification may be performed using the [employer] Gram-Positive Blood Culture Assay. This assay detects microbial DNA in positive blood culture broth via hybridization of target DNA to capture oligonucleotides on a microarray. This assay has been cleared by the [place] Food and Drug Administration and its performance characteristics have been verified by the [facility]. 5. ?For questions about this culture, contact the Microbiology Laboratory at [phone]. Interpretive data was last revised on 2019. us Lila MCKEON LAB MICROBIOLOGY - GENERAL O RDERABLES Final Result MARY JANE PHAM [address] [facility] Department [place] [address] * (ABNORMAL) Influenza A/B, RSV, and COVID-19 PCR Nasopharyngeal (02/09/2022 4:46 PM CDT) COVID-19 RNA Positive(A) Negative MARY JANE PHAM Comment:Testing performed by : [address] [address] Influenza A RNA Negative Negative MARY JANE Comment:Testing performed by : [address] [address] Influenza B RNA Negative Negative [facility] Comment:Testing performed by : [address] [address] RSV RNA Negative Negative MARY JANE Comment: Interpretive data: This test is performed using the [employer] Xpert Xpress CoV-2/Flu/RSV plus assay. This is [...] Data last revised 2021. Testing performed by: [address] [address] Nasopharyngeal 02/09/2022 4: 46 PM CDT 02/09/2022 4:51 PM CDT Narrative [facility] - 02/09/2022 5:40 PM CDT Is the Patient experiencing symptoms consistent with COVID?->Yes Date of Symptom Onset->02/09/22 Reason for testing?->Symptomatic Lila MCKEON LAB MICROBIOLOGY - GENERAL O RDERABLES Final Result MARY JANE [address] [facility] Department [place] [address] * (ABNORMAL) Troponin T high-sensitivity 2-hour (02/09/2022 3:37 PM CDT) Trop T hs 18(H) <=14 ng/L MARY JANE Comment: Ref Range High Interpretive Data For further hscTnT resources including the diagnostic algorithm and an aid in interpretation, copy and paste this link: https://nrl.testcatalog.org/show/hsTrop Current Interpretive Data last revised 2020. Testing performed by: [facility], [address] [place] [address]., [address] Trop T hs delta -1 ng/L MARY JANE PHAM Comment:Testing performed by : [facility], [address] [place] [address]., [address] Trop T hs interp Insignificant MARY JANE PHAM Comment:Testing performed by : [facility], [address] [place] [address]., [address] Blood 02/09/2022 3:37 PM CDT 02/09/2022 3:42 PM CDT us Alicia MCKEON LAB BLOOD ORDERABLES Deann bowman Result MARY JANE PHAM [address] [facility] Department [place] [address] * (ABNORMAL) Urine culture Urine (02/09/2022 1:28 PM CDT) Report Final Report: Greater than or equal to 100,000 colonies/mL of Escherichia coli (.) MARY JANE PHAM Comment:Testing performed by : [facility], [address] [facility] [place] [address] Organism ESCHERICHIA COLI MARY JANE Urine 02/09/2022 1:28 PM CDT 02/09/2022 7:24 PM CDT Narrative MARY JANE - 02/12/2022 11:23 AM CDT Urine culture reflexed based upon urinalysis results. Testing performed by [facility] ([phone]) Organism Antibiotic Method Susceptibility Escherichia coli Ampicillin [...] L ORDERABLES Final Result Performing Organization Address [facility] Co de Phone Number [address] [id number] * (ABNORMAL) Urinalysis, microscopic only (02/09/2022 1:28 PM CDT) WBC, ur >50(A) 0 - 5 /HPF MARY JANE Comment:Testing performed by : [address] [address] RBC, ur 6-10(A) 0 - 2 /HPF MARY JANE Comment:Testing performed by : [address] [address] Culture Reflex Comment Reflex to urine culture will be performed. MARY JANE Comment:Testing performed by : [address] [address] Urine 02/09/2022 1:28 PM CDT 02/09/2022 1:40 PM CDT Alicia MCKEON LAB URINE ORDERABLES Deann l Result Performing Organization Address [facility] Co de Phone Number [address] [address] * (ABNORMAL) Urinalysis reflex to microscopic and culture Urine (02/09/2022 1:28 PM CDT) Color, ur Yellow Yellow MARY JANE Comment:Testing performed by : [address] [address] Clarity, ur Cloudy(A) Clear MARY JANE Comment:Testing performed by : [address] [address] Specific gravity, ur 1.015 1.003 - 1.030 MARY JANE Comment:Testing performed by : [address] [address] pH, urine 6.0 MARY JANE Comment:Testing performed by : [address] [address] Protein, ur ql Negative Negative MARY JANE Comment:Testing performed by : [facility], [address] [place] [address], [place] [address] Glucose, ur ql Negative Negative MARY JANE Comment:Testing performed by : [facility], [address] [place] [address], [place] [address] Ketones, ur Negative Negative MARY JANE Comment:Testing performed by : [address], [place] [address] Bilirubin, ur Negative Negative MARY JANE Comment:Testing performed by : [facility], [address] [place] [address], [place] [address] Blood, ur 1+(A) Negative MARY JANE Comment:Testing performed by : [address], [place] [address] Urobilinogen, ur 0.2 <2.0 mg/dL MARY JANE Comment:Testing performed by : [address], [place] [address] Nitrite, ur Positive(A) Negative MARY JANE Comment:Testing performed by : [facility], [address] [place] [address], [place] [address] Leukocyte esterase, ur 2+(A) Negative MARY JANE Comment:Testing performed by : [address], [place] [address] UA reflex comment Reflex to microscopic UA will be performed. MARY JANE Comment:Testing performed by : [address], [place] [address] Urine 02/09/2022 1:28 PM CDT 02/09/2022 1:40 [...] tendency for uric acid stone formation. Source: Strategic Funding Source. Last revised 05-04-2017 us Alicia MCKEON LAB MICROBIOLOGY - GENERA L ORDERABLES Final Result Performing Organization Address City/State/[facility] de Phone Number [facility] [address] [facility] [place] [address] * ECG 12 lead (02/09/2022 1:19 PM CDT) Ventricular Rate EKG/Min 92 BPM [facility] Atrial Rate 92 BPM [facility] SC-Interval (MSEC) 134 ms [facility] QRS-Interval (MSEC) 76 ms [facility] QT-Interval (MSEC) 348 ms [facility] QTc 430 ms [facility] P [place] 8 degrees [facility] R [place] 0 degrees [facility] T [place] 16 degrees [facility] Diagnosis Normal sinus rhythm Nonspecific T wave abnormality Abnormal ECG When compared with ECG of 28-JAN-2022 16:59, Premature atrial complexes are no longer Present [facility] 02/09/2022 1:19 PM CDT 02/09/2022 7:31 PM CDT us Alicia MCKEON ECG ORDERABLES Final Res ult Performing Organization Address [facility] de Phone Number [facility] * eGFR (02/09/2022 1:12 PM CDT) Pathologist [facility] eGFR 63 mL/min/1. 73 m2 MARY JANE [...] last reviewed 2021. Testing performed by: [address] [address] Blood 02/09/2022 1:12 PM CDT 02/09/2022 1:20 PM CDT us Alicia MCKEON LAB BLOOD ORDERABLES Deann bowman Result MARY JANE [facility] Department [place] [address] * (ABNORMAL) Differential, auto (02/09/2022 1:12 PM CDT) Neutrophil abs 12.1(H) 1.7 - 6.5 K/cumm MARY JANE Comment:Testing performed by : [address] [address] Imm gran abs 0.1 0.0 - 0.1 K/cumm MARY JANE Comment:Testing performed by : [address] [address] Lymphocyte abs 2.5 0.8 - 3.3 K/cumm MARY JANE Comment:Testing performed by : [address] [address] Monocyte abs 1.0(H) 0.2 - 0.8 K/cumm MARY JANE Comment:Testing performed by : [address] [address] Eosinophil abs 0.1 0.0 - 0.5 K/cumm MARY JANE Comment:Testing performed by : [address] [address] Basophil abs 0.1 0.0 - 0.1 K/cumm MARY JANE Comment:Testing performed by : [address] [address] Neutrophil pct 76.6 % [facility] Comment: Interpretive Data Percent cell count reference ranges are not reported, since discordance with absolute values may lead to misinterpretation of CBC data. Current Interpretive Data was last revised on 2017. Testing performed by: [address] [address] Imm gran pct 0.5 % [facility] Comment: Interpretive Data Percent cell count reference ranges are not reported, since discordance with absolute values may lead to misinterpretation of CBC data. Current Interpretive Data was last revised on 2017. Testing performed by: [address] [address] Lymphocyte pct 15.7 % C[facility]ER Comment: Interpretive Data Percent cell count reference ranges are not reported, since discordance with absolute values may lead to misinterpretation of CBC data. Current Interpretive Data was last revised on 2017. Testing performed by: [address] [address] Monocyte pct 6.3 % [facility] Comment: Interpretive Data Percent cell count reference ranges are not reported, since discordance with absolute values may lead to misinterpretation of CBC data. Current Interpretive Data was last revised on 2017. Testing performed by: [address] [address] Eosinophil pct 0.6 % [facility] Comment: Interpretive Data Percent cell count reference ranges are not reported, since discordance with absolute values may lead to misinterpretation of CBC data. Current Interpretive Data was last revised on 2017. Testing performed by: [address] [address] Basophil pct 0.3 % [facility] Comment: Interpretive Data Percent cell count reference ranges are not reported, since discordance with absolute values may lead to misinterpretation of CBC data. Current Interpretive Data was last revised on 2017. Testing performed by: [address] [address] Blood 02/09/2022 1:12 PM CDT 02/09/2022 1:20 PM CDT Alicia MCKEON LAB BLOOD ORDERABLES Deann l Result Performing Organization Address [facility] Co de Phone Number [place] [phone] [facility] [place] [employer] [place] [address] * (ABNORMAL) Troponin T high-sensitivity series (baseline, 2hr, 4hr, 6hr) (02/09/2022 1:12 PM CDT) Pathologist [facility] Trop T hs 19(H) <=14 ng/L MARY JANE Comment: Ref Range High Interpretive Data For further hscTnT resources including the diagnostic algorithm and an aid in interpretation, copy and paste this link: https://nrl.testcatalog.org/show/hsTrop Current Interpretive Data last revised 2020. Testing performed by: [facility], [address] [place] [address]., [address] Blood 02/09/2022 1:12 PM CDT 02/09/2022 1:20 PM CDT Alicia MCKEON LAB BLOOD ORDERABLES Edit ed Result - Final Performing Organization Address [facility] Co de Phone Number [place] [address] [facility] [employer] [place] [address] * Pro B-type natriuretic peptide (02/09/2022 1:12 PM CDT) [facility] NT-proBNP 89 <=300 pg/mL MARY JANE Comment: [...] Last Revised Date: 2017. Testing performed by: [facility], [address] [place] [address]., [address] Blood 02/09/2022 1:12 PM CDT 02/09/2022 1:20 PM CDT us Alicia MCKEON LAB BLOOD ORDERABLES Deann bowman Result MARY JANE PHAM [address] [facility] Department [place] [address] * Sepsis Lactate w/ Reflex (02/09/2022 1:12 PM CDT) Pathologist [facility] Sepsis Lactate 1.8 0.7 - 2.0 mmol/L MARY JANE PHAM Comment:Testing performed by : [address] [address] Blood 02/09/2022 1:12 PM CDT 02/09/2022 1:20 PM CDT us Alicia MCKEON LAB BLOOD ORDERABLES Deann l Result [facility] [address] [facility] Department of [place] [address] * (ABNORMAL) Comprehensive metabolic panel (02/09/2022 1:12 PM CDT) Sodium 141 135 - 145 mmol/L MARY JANE Comment:Testing performed by : [address] [address] Potassium, pl 4.2 3.3 - 4.9 mmol/L MARY JANE Comment:Testing performed by : [address] [address] Chloride 102 97 - 110 mmol/L MARY JANE Comment:Testing performed by : [address] [address] CO2 26 22 - 32 mmol/L MARY JANE Comment:Testing performed by : [address] [address] Anion gap 13 2 - 15 mmol/L MARY JANE Comment:Testing performed by : [address] [address] BUN 24 8 - 25 mg/dL MARY JANE Comment:Testing performed by : [address] [address] Creatinine 1.00 0.60 - 1.10 mg/dL MARY JANE Comment:Testing performed by : [address] [address] Glucose 217(H) 70 - 199 mg/dL MARY [...] last revised 2017. Testing performed by: [address] [address] Calcium 10.2 8.5 - 10.3 mg/dL MARY JANE Comment:Testing performed by : [address] [address] Bilirubin, total 0.8 0.1 - 1.2 mg/dL [facility] Comment:Testing performed by : [address] [address] Protein, pl 8.6(H) 6.5 - 8.5 g/dL [facility] Comment:Testing performed by : [address] [address] Albumin 4.1 3.5 - 5.0 g/dL [facility] Comment:Testing performed by : [address] [address] Alk phos 108 40 - 130 Units/L [facility] Comment:Testing performed by : [address] [address] ALT 22 7 - 45 Units/L [facility] Comment:Testing performed by : [address] [address] AST 18 10 - 45 Units/L [facility] Comment:Testing performed by : [address] [address] Blood 02/09/2022 1:12 PM CDT 02/09/2022 1:20 PM CDT us Alicia MCKEON LAB BLOOD ORDERABLES Deann l Result MARY JANE PHAM [address] [facility] Department [place] [address] * (ABNORMAL) CBC with auto differential (02/09/2022 1:12 PM CDT) [facility] WBC 15.8(H) 3.8 - 9.9 K/cumm MARY JANE Comment:Testing performed by : [address] [address] Hgb 13.2 11.9 - 15.5 g/dL MARY JANE Comment:Testing performed by : [address], [address] Hct 41.9 35.6 - 45.5 % MARY JANE Comment:Testing performed by : [address], [address] Plt 309 150 - 400 K/cumm MARY JANE Comment:Testing performed by : [address], [address] MPV 9.6 9.1 - 12.3 fL MARY JANE Comment:Testing performed by : [address], [address] RBC 4.59 3.90 - 5.20 M/cumm MARY JANE Comment:Testing performed by : [address], [address] MCV 91.3 81.3 - 96.4 fL MARY JANE Comment:Testing performed by : [address], [address] MCH 28.8 27.1 - 33.3 pg MARY JANE Comment:Testing performed by : [address], [address] MCHC 31.5(L) 32.3 - 35.7 g/dL MARY JANE Comment:Testing performed by : [address], [address] RDW CV 14.4 11.1 - 14.9 % MARY JANE Comment:Testing performed by : [address], [address] RDW SD 48.2(H) 35.7 - 48.1 fL MARY JANE Comment:Testing performed by : [address], [address] NRBC abs 0.00 0.00 - 0.01 K/cumm MARY JANE Comment:Testing performed by : [facility] [address] [place] [address], [place] [address] Blood 02/09/2022 1:12 PM CDT 02/09/2022 1:20 PM CDT us Alicia MCKEON LAB BLOOD ORDERABLES Deann colby Result MARY JANE [address] [facility] Department [place] [address] documented in this encounter Visit Diagnoses Diagnosis Cystitis- Primary Unspecified cystitis Cystitis Unspecified cystitis Essential hypertension Unspecified essential hypertension Type 2 diabetes mellitus with neurologic complication, without long-term current use of insulin ([facility]/HCC) (HCC) History of pulmonary embolism Personal [...] puff, inhalation, 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), First dose on Mon02/09/22 at 2245 Given [...] puff, inhalation, 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), First dose on Mon02/09/22 at 2245 1043 (Not Given - Provider: Jo Wilkerson, FISH FROG OR OYSTER FARMER - Reason: Other - Comment: workload)1521 (Given - Provider: oJ Wilkerson, FISH FROG OR OYSTER FARMER)2027 (Given - Provider: Paula Gonsalves, PARLIAMENTARY LIBRARIAN) 0900 (Given - Provider: Grisel Solano, FISH FROG OR OYSTER FARMER - Comment: CAT CALL)1437 (Given - Provider: Bianca Engle, FISH FROG OR OYSTER FARMER)2029 (Given - Provider: Paula Gonsalves, PARLIAMENTARY LIBRARIAN) 0920 (Given - Provider: Emilia Granados, EILEEN) [...] scheduled, First dose (after last modification) on [place] 02/13/22 at 1200, For 18 doses, Mini-Bag [...] NURIS - Reason: Other)2052 (Given - Provider: Bubab Campbell, NURIS) 0604 (Not Given - Provider: [...] 0755 (See Alternative - Provider: Freda Green, NURIS) ondansetron ODT (ZOFRAN-ODT) disintegrating tablet 4 mg(Linked [...] COVID: Recovered 02/10/2022 02/10/2022 06/10/2022 3:05 AM EVENT SET UP SPECIALIST Exposure, COVID-19 Comment:Added automatically based on COVID19 lab answers indicating exposure risk 02/11/2022 02/11/2022 02/15/2022 9:06 AM C DT documented as of this encounter Care Teams Foundry Melt Supervisor Relationship Specialty Start Date End Date Justen Gale MD [address] [address] PCP - General 10/09/17 Liu Jerez MD Consulting Physician Gastroenterology 07/28/17 [place] [address] [facility] [address] [place] [address] Consulting Physician Pulmonary Disease 08/03/17 Khris Arthur MD [address] [facility] [address] [place] [address] Medical Oncologist/Certified Medical Technician Medical Oncology 10/23/17 [place] [address] [facility] [address] [place] [address] Surgeon Orthopedic Surgery 10/23/17 [place] [address] [facility] [address] [place] [address] Consulting Physician Pain Management 10/23/17 [place] [address] [facility] [address] [place] [address] Referring Physician General Surgery 01/26/18 [place] [address] [facility] [address] [place] [address] Consulting Physician Neurology 01/26/18 documented as of this encounter
--- OUTSIDE RECORDS SUMMARY | 2024-04-26 09:18 | XMS_ITS | Encounter Summary ---
Author Organization [facility] Healthcare Address [address] [place] [address] Care Team Providers Care Client Services Assistant Name Role Phone Liu Jerez MD Unavailable Albert Corbin MD Unavailable Justen Gale MD Primary Care Provider Khris Arthur MD Unavailable [phone] Ko Melendez MD Unavailable [phone] John Paul Moyer MD Unavailable Annel Rod MD Unavailable Anali MARSHALL MD, Carlos M. 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) ([facility]) 01/24/2018 Anxiety and depression 11/12/2017 Uncontrolled type 2 diabetes mellitus with hyperglycemia, with long-term current use of insulin ([facility]) 11/06/2017 Allergy to drug 11/06/2017 Dysuria 10/26/2017 Acute left-sided low back pain with left-sided sciatica 10/23/2017 Type 2 diabetes mellitus with neurologic complication, without long-term current use of insulin ([facility]) (HCC) 10/23/2017 Hypertension 10/23/2017 Long-term current use of opiate analgesic 10/23/2017 Lumbosacral spondylosis without myelopathy 10/23/2017 Radiculopathy, lumbosacral region 10/23/2017 Spinal stenosis of lumbar region without neurogenic claudication 10/23/2017 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 Type 2 diabetes mellitus without complication ([facility]) ([facility]) Constipation Malignant neoplasm of upper-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 ([facility]) ([facility]) 10/17/2017 Cancer of overlapping sites of left female breast ([facility]) ([facility]) 10/13/2017 Chronic anticoagulation Restless leg syndrome Chest pressure 08/01/2017 Positive blood culture 08/01/2017 Hyponatremia 08/01/2017 Diet-controlled diabetes mellitus ([facility]) ([facility]) 08/01/2017 LUL (obstructive sleep apnea) 08/01/2017 History of DVT (deep vein thrombosis) 08/01/2017 History of pulmonary embolism 08/01/2017 Essential hypertension Generalized weakness 07/27/2017 Dyspnea 07/27/2017 Unintentional weight loss 07/27/2017 Acute cystitis without hematuria 07/27/2017 Nausea and vomiting 07/26/2017 Pulmonary embolism ([facility]) 08/09/2016 Lymphedema of left upper extremity 08/09/2016 Pain of foot 01/26/2015 Arthralgia of ankle 01/26/2015 Rash 11/11/2014 Cellulitis of breast 11/11/2014 Restless legs syndrome 03/12/2013 Pain of lower extremity 03/12/2013 Past Medical History: Diagnosis Date Adiposity obesity Breast CA ([facility]) (HCC) Cancer ([facility]) (HCC) breast CHF (congestive heart failure) ([facility]/HCC) (HCC) Depression Depression Diabetes (HCC) Disorder of thyroid Thyroid disease DVT (deep venous thrombosis) ([facility]/HCC) (HCC) HX OTHER MEDICAL restless leg syndrome HX OTHER MEDICAL RLS Hypertension Hypertension Osteoarthritis osteoarthritis PE (pulmonary thromboembolism) ([facility]) (HCC) Sleep apnea Past Surgical History: Procedure [...] as of 01/28/222040 Time: 01/28 1823 Comment: [id number]: nsr 97 bpm, PACs, normal intervals, no [...] /HPF MARY JANE Comment:Testing performed by : [address] [address] RBC, ur 0-2 0 - 2 /HPF MARY JANE Comment:Testing performed by : [address] [address] Mucous, ur Present(A) MARY JANE Comment:Testing performed by : [address] [address] Hyaline casts, ur 1-5 0 - 10 /LPF MARY JANE Comment:Testing performed by : [address] [address] Culture Reflex Comment Reflex conditions for urine culture (WBC >10) not met. MARY JANE Comment:Testing performed by : [address] [address] Urine 01/28/2022 7:48 PM CDT 01/28/2022 7:59 PM CDT us Jeremías Sheppard MD LAB URINE ORDERABLES Final Re sult MARY JANE [address] [facility] Department [place] [address] * (ABNORMAL) Urinalysis reflex to microscopic and culture Urine (01/28/2022 7:48 PM CDT) Color, ur Yellow Yellow MARY JANE Comment:Testing performed by : [address] [address] Clarity, ur Cloudy(A) Clear MARY JANE Comment:Testing performed by : [address] [address] Specific gravity, ur 1.027 1.003 - 1.030 MARY JANE Comment:Testing performed by : [address] [address] pH, urine 5.0 MARY JANE Comment:Testing performed by : [address] [address] Protein, ur ql Negative Negative MARY JANE Comment:Testing performed by : [address] [address] Glucose, ur ql Negative Negative MARY JANE Comment:Testing performed by : [address] [address] Ketones, ur Negative Negative MARY JANE Comment:Testing performed by : [address] [address] Bilirubin, ur Negative Negative MARY JANE Comment:Testing performed by : [address] [address] Blood, ur Negative Negative MARY JANE Comment:Testing performed by : [address] [address] Urobilinogen, ur <2.0 <2.0 mg/dL MARY JANE Comment:Testing performed by : [address] [address] Nitrite, ur Negative Negative MARY JANE Comment:Testing performed by : [address] [place] [address] Leukocyte esterase, ur Negative Negative MARY JANE Comment:Testing performed by : [address] [address] UA reflex comment Reflex to microscopic UA will be performed. MARY JANE Comment:Testing performed by : [address] [address] Urine 01/28/2022 7:48 PM CDT 01/28/2022 7:59 [...] for uric acid stone formation. Source: Jerez MaulSoup. Last revised 05-04-2017 Jeremías Sheppard MD LAB MICROBIOLOGY - GENERAL OR DERABLES Final Result MARY JANE [address] [facility] [place] [address] * (ABNORMAL) Troponin T high-sensitivity 2-hour (01/28/2022 6:46 PM CDT) Trop T hs 22(H) <=14 ng/L MARY JANE Comment: Interpretive Data For further hscTnT resources including the diagnostic algorithm and an aid in interpretation, copy and paste this link: https://nrl.testcatalog.org/show/hsTrop Current Interpretive Data last revised 2020. Testing performed by: [address] [address] Trop T hs delta -1 ng/L MARY JANE Comment:Testing performed by : [address] [address] Trop T hs interp Insignificant MARY JANE Comment:Testing performed by : [address] [address] Blood 01/28/2022 6:46 PM CDT 01/28/2022 6:52 PM CDT us Blaze Armenta NP LAB BLOOD ORDERABLES Final Resul t MARY JANE MH [address] [facility] [place] [address] * CT Head WO Contrast (01/28/2022 5:11 [...] PM T: ??01/28/2022 5:39 PM Report ID: [id number] Reading Location: ??[id number] Procedure Note Patrick Navarro MD - 01/28/2022 [...] Patrick Navarro M.D. KT: DEANA Report ID: [id number] Reading Location: [id number] Blaze Armenta NP IMG CT PROCEDURES Final [...] PM T: ??01/28/2022 5:11 PM Report ID: [id number] Reading Location: ??[id number] Procedure Note Teto English Jr., MD - [...] by Teto English M.D. CH: Report ID: [id number] Reading Location: [id number] Blaze Armenta NP IMG XR PROCEDURES Final Result * ECG 12 lead (01/28/2022 4:59 PM CDT) Pathologist [facility] Ventricular Rate EKG/Min 97 BPM [facility] Atrial Rate 97 BPM [facility] CT-Interval (MSEC) 148 ms [facility] QRS-Interval (MSEC) 88 ms [facility] QT-Interval (MSEC) 372 ms [facility] QTc 472 ms [facility] P Stella 23 degrees [facility] R Stella -1 degrees [facility] T Stella 32 degrees [facility] Diagnosis Sinus rhythm with Premature atrial complexes Non-specific T wave changes noted Abnormal ECG When compared with ECG of 29-OCT-2021 19:44, Premature atrial complexes are now Present [facility] 01/28/2022 4:59 PM CDT 01/29/2022 12:33 PM CDT Blaze Armenta NP ECG ORDERABLES Final Result [facility] * eGFR (01/28/2022 4:51 PM CDT) Pathologist [facility] eGFR 96 mL/min/1. 73 m2 MARY [...] was last reviewed 2021. Testing performed by: [address] [address] Blood 01/28/2022 4:51 PM CDT 01/28/2022 4:54 PM CDT us Blaze Armenta NP LAB BLOOD ORDERABLES Final Resul t MARY JANE [facility] Department [place] [address] * Differential, auto (01/28/2022 4:51 PM CDT) Neutrophil abs 6.1 1.7 - 6.5 K/cumm MARY JANE Comment:Testing performed by : [address] [address] Imm gran abs 0.0 0.0 - 0.1 K/cumm MARY JANE Comment:Testing performed by : [address] [address] Lymphocyte abs 2.5 0.8 - 3.3 K/cumm MARY JANE Comment:Testing performed by : [address] [address] Monocyte abs 0.8 0.2 - 0.8 K/cumm MARY JANE Comment:Testing performed by : [address] [address] Eosinophil abs 0.3 0.0 - 0.5 K/cumm MARY JANE Comment:Testing performed by : [address] [address] Basophil abs 0.0 0.0 - 0.1 K/cumm MARY JANE Comment:Testing performed by : [address] [address] Neutrophil pct 62.7 % [facility] Comment: Interpretive Data Percent cell count reference ranges are not reported, since discordance with absolute values may lead to misinterpretation of CBC data. Current Interpretive Data was last revised on 2017. Testing performed by: [address] [address] Imm gran pct 0.3 % [facility] Comment: Interpretive Data Percent cell count reference ranges are not reported, since discordance with absolute values may lead to misinterpretation of CBC data. Current Interpretive Data was last revised on 2017. Testing performed by: [address] [address] Lymphocyte pct 26.0 % [facility] Comment: Interpretive Data Percent cell count reference ranges are not reported, since discordance with absolute values may lead to misinterpretation of CBC data. Current Interpretive Data was last revised on 2017. Testing performed by: [address] [address] Monocyte pct 8.0 % [facility] Comment: Interpretive Data Percent cell count reference ranges are not reported, since discordance with absolute values may lead to misinterpretation of CBC data. Current Interpretive Data was last revised on 2017. Testing performed by: [address] [address] Eosinophil pct 2.7 % [facility] Comment: Interpretive Data Percent cell count reference ranges are not reported, since discordance with absolute values may lead to misinterpretation of CBC data. Current Interpretive Data was last revised on 2017. Testing performed by: [address] [address] Basophil pct 0.3 % [facility] Comment: Interpretive Data Percent cell count reference ranges are not reported, since discordance with absolute values may lead to misinterpretation of CBC data. Current Interpretive Data was last revised on 2017. Testing performed by: [address] [address] Blood 01/28/2022 4:51 PM CDT 01/28/2022 4:54 PM CDT [facility] BLOOD ORDERABLES Final Resul t Performing Organization Address [facility] de Phone Number MARY JANE [address] [facility] [place] [address] * (ABNORMAL) Troponin T high-sensitivity series (baseline, 2hr, 4hr, 6hr) (01/28/2022 4:51 PM CDT) Pathologist [facility] Trop T hs 23(H) <=14 ng/L MARY JANE Comment: Interpretive Data For further hscTnT resources including the diagnostic algorithm and an aid in interpretation, copy and paste this link: https://nrl.testcatalog.org/show/hsTrop Current Interpretive Data last revised 2020. Testing performed by: [address] [address] Blood 01/28/2022 4:51 PM CDT 01/28/2022 4:54 PM CDT Blaze Armenta LAB BLOOD ORDERABLES Final Resul t Performing Organization Address [facility] de Phone Number MARY JANE [address] [facility] [place] [address] * Comprehensive metabolic panel (01/28/2022 4:51 PM CDT) [facility] Sodium 142 135 - 145 mmol/L MARY JANE Comment:Testing performed by : [address] [address] Potassium, pl 4.0 3.3 - 4.9 mmol/L MARY JANE Comment:Testing performed by : [address] [address] Chloride 105 97 - 110 mmol/L MARY JANE Comment:Testing performed by : [address] [address] CO2 27 22 - 32 mmol/L MARY JANE Comment:Testing performed by : [address] [address] Anion gap 10 2 - 15 mmol/L MARY JANE Comment:Testing performed by : [address] [address] BUN 17 8 - 25 mg/dL MARY JANE Comment:Testing performed by : [address] [address] Creatinine 0.70 0.60 - 1.10 mg/dL MARY JANE Comment:Testing performed by : [address] [address] Glucose 160 70 - 199 mg/dL MARY [...] was last revised 2017. Testing performed by: [address] [address] Calcium 9.8 8.5 - 10.3 mg/dL MARY JANE Comment:Testing performed by : [address] [address] Bilirubin, total 0.4 0.1 - 1.2 mg/dL MARY JANE Comment:Testing performed by : [address] [address] Protein, pl 8.2 6.5 - 8.5 g/dL MARY JANE Comment:Testing performed by : [address] [address] Albumin 4.0 3.5 - 5.0 g/dL MARY JANE Comment:Testing performed by : [address] [address] Alk phos 94 40 - 130 Units/L MARY JANE Comment:Testing performed by : [address] [address] ALT 19 7 - 45 Units/L MARY JANE Comment:Testing performed by : [address] [address] AST 23 10 - 45 Units/L MARY JANE Comment:Testing performed by : [address] [address] Blood 01/28/2022 4:51 PM CDT 01/28/2022 4:54 PM CDT Blaze Armenta NP LAB BLOOD ORDERABLES Final Resul t MARY JANE [address] [facility] [place] [address] * (ABNORMAL) CBC with auto differential (01/28/2022 4:51 PM CDT) WBC 9.7 3.8 - 9.9 K/cumm MARY JANE PHAM Comment:Testing performed by : [address] [address] Hgb 12.7 11.9 - 15.5 g/dL MARY JANE PHAM Comment:Testing performed by : [address] [address] Hct 40.8 35.6 - 45.5 % MARY JANE PHAM Comment:Testing performed by : [address] [address] Plt 293 150 - 400 K/cumm MARY JANE PHAM Comment:Testing performed by : [address] [address] MPV 9.9 9.1 - 12.3 fL MARY JANE PHAM Comment:Testing performed by : [address] [address] RBC 4.43 3.90 - 5.20 M/cumm MARY JANE PHAM Comment:Testing performed by : [address] [address] MCV 92.1 81.3 - 96.4 fL MARY JANE PHAM Comment:Testing performed by : [address] [address] MCH 28.7 27.1 - 33.3 pg MARY JANE PHAM Comment:Testing performed by : [address] [place] [address] MCHC 31.1(L) 32.3 - 35.7 g/dL MARY JANE PHAM Comment:Testing performed by : [address] [address] RDW CV 13.9 11.1 - 14.9 % MARY JANE PHAM Comment:Testing performed by : [address] [address] RDW SD 47.1 35.7 - 48.1 fL MARY JANE PHAM Comment:Testing performed by : [address] [address] NRBC abs 0.00 0.00 - 0.01 K/cumm MARY JANE PHAM Comment:Testing performed by : [address] [address] Blood (Blood, Venous) 01/28/2022 4:51 PM CDT 01/28/2022 4:54 PM CDT Blaze Armenta NP LAB BLOOD ORDERABLES Final Resul t MARY JANE [address] [facility] [place] [address] documented in this encounter Visit [...] 01/28/2022 documented in this encounter Care Teams Client Services Assistant Relationship Specialty Start Date End Date Justen Gale MD 2 [facility] [address] [place] [address] PCP - General 10/09/17 Liu Jerez MD Consulting Physician Gastroenterology 07/28/17 [place] [address] [facility] [address] [place] [address] Consulting Physician Pulmonary Disease 08/03/17 [place] [address] [place] [address] [address] [place] [address] Medical Oncologist/Turkey Egg Gatherer Medical Oncology 10/23/17 [place] [address] [facility] [address] [place] [address] Surgeon Orthopedic Surgery 10/23/17 [place] [address] [address] Consulting Physician Pain Management 10/23/17 [place] [address] [facility] [address] [place] [address] Referring Physician General Surgery 01/26/18 [place] [address] [facility] [address] [place] [address] Consulting Physician Neurology 01/26/18 documented as of this encounter
--- OUTSIDE RECORDS SUMMARY | 2024-04-26 09:18 | XMS_ITS | Encounter Summary ---
Author Organization [facility] Address [address] [place] [address] Phone Care Team Providers Care General Car Supervisor Yard Name Role Phone Liu Jerez MD Unavailable Albert Corbin MD Unavailable [phone] Justen Gale MD Primary Care Provider Khris Arthur MD Unavailable [phone] Ko Melendez MD Unavailable [phone] John Paul Moyer MD Unavailable Annel Rod MD Unavailable Anali MARSHALL MD, Carlos M. 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 [address] [place] [address] Medical Oncologist/Diesel Stationary Engineer Medical Oncology 10/23/17 [place] [address] [facility] [address] [place] [address] Surgeon Orthopedic Surgery 10/23/17 [place] [address] [facility] [address] [place] [address] Consulting Physician Pain Management 10/23/17 [place] [address] [facility] [address] [place] [address] Referring Physician General Surgery 01/26/18 [place] [address] [facility] [address] [place] [address] Consulting Physician Neurology 01/26/18 documented as of this encounter
--- OUTSIDE RECORDS SUMMARY | 2024-04-26 09:18 | XMS_ITS | Encounter Summary ---
Author Organization [facility] Healthcare Address [address] [place] [address] Care Team Providers Care Mainspring Former Arbor End Name Role Phone Liu Jerez MD Unavailable [phone] Albert Corbin MD Unavailable Justen Gale MD Primary Care Provider [phone] Khris Arthur MD Unavailable [phone] Ko Melendez MD Unavailable John Paul Moyer MD Unavailable Annel Rod MD Unavailable Anali MARSHALL MD, Carlos M. Unavailable Reason for Visit * Reason Comments Urinary Problem Encounter Details Date Type Department Care Team (Late st Contact Info) Description 01/10/2022 2:50 PM CDT - 01/10/2022 3:11 PM CDT Emergency 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 * Abdominal Pain (AfterCare(R) Instructions(ER/ED)) (Ecuadorean) documented in this encounter Medications at Time [...] this encounter Progress Notes * Langhauser, [place], COST ESTIMATING ENGINEER - 01/10/2022 1:58 PM CDT Patient discharged 12/26/21 from [facility] after being treated for UTI, was [...] osteoarthritis PE (pulmonary thromboembolism) (CMS/HCC) ([facility]) Sleep apnea Past Surgical History: [...] tendency for uric acid stone formation. Source: [employer] [place].Last revised 05-04-2017 COMPREHENSIVE METABOLIC PANEL - Abnormal [...] PA This examination was transcribed using the Yumm[employer] voice recognition system without human addictions counselor assistant. In an effort to expedite patient care, this report has not been adjusted for typographical, grammatical, and syntax by a trained biomedical manager. Close outpatient follow-up with a low threshold [...] was last reviewed 2021. Testing performed by: [address] [address] Blood 01/10/2022 1:17 PM CDT 01/10/2022 1:31 PM CDT Melvin Sy MD LAB BLOOD ORDERABLES F inal Result Performing Organization Address [facility] de Phone Number MARY JANE [address] [facility] [place] [address] * (ABNORMAL) Urinalysis, microscopic only (01/10/2022 1:17 PM CDT) WBC, ur 0-5 0 - 5 /HPF MARY JANE Comment:Testing performed by : [address] [address] RBC, ur 0-2 0 - 2 /HPF MARY JANE Comment:Testing performed by : [address] [address] Epithelial cells, squamous, ur 6-10(A) 0 - 5 /HPF MARY JANE Comment: Suggestive of contamination. Consider recollection by clean catch. Testing performed by: [address] [address] Mucous, ur Present(A) MARY JANE Comment:Testing performed by : [address] [address] Culture Reflex Comment Reflex conditions for urine culture (WBC >10) not met. MARY JANE Comment:Testing performed by : [address] [address] Urine 01/10/2022 1:17 PM CDT 01/10/2022 1:31 PM CDT Melvin Sy MD LAB URINE ORDERABLES F inal Result Performing Organization Address [facility] Co de Phone Number [facility] [address] [facility] [place] [address] * Differential, auto (01/10/2022 1:17 PM CDT) Neutrophil abs 6.0 1.7 - 6.5 K/cumm MARY JANE Comment:Testing performed by : [address] [address] Imm gran abs 0.0 0.0 - 0.1 K/cumm MARY JANE Comment:Testing performed by : [address] [address] Lymphocyte abs 2.4 0.8 - 3.3 K/cumm [facility] Comment:Testing performed by : [address] [address] Monocyte abs 0.6 0.2 - 0.8 K/cumm [facility] Comment:Testing performed by : [address] [address] Eosinophil abs 0.2 0.0 - 0.5 K/cumm [facility] Comment:Testing performed by : [address] [address] Basophil abs 0.0 0.0 - 0.1 K/cumm [facility] Comment:Testing performed by : [address] [address] Neutrophil pct 64.5 % [facility] Comment: Interpretive Data Percent cell count reference ranges are not reported, since discordance with absolute values may lead to misinterpretation of CBC data. Current Interpretive Data was last revised on 2017. Testing performed by: [address] [address] Imm gran pct 0.1 % [facility] Comment: Interpretive Data Percent cell count reference ranges are not reported, since discordance with absolute values may lead to misinterpretation of CBC data. Current Interpretive Data was last revised on 2017. Testing performed by: [address] [address] Lymphocyte pct 25.9 % [facility] Comment: Interpretive Data Percent cell count reference ranges are not reported, since discordance with absolute values may lead to misinterpretation of CBC data. Current Interpretive Data was last revised on 2017. Testing performed by: [address] [address] Monocyte pct 6.8 % MARY JANE PH[facility] Comment: Interpretive Data Percent cell count reference ranges are not reported, since discordance with absolute values may lead to misinterpretation of CBC data. Current Interpretive Data was last revised on 2017. Testing performed by: [address] [address] Eosinophil pct 2.3 % MARY JANE Comment: Interpretive Data Percent cell count reference ranges are not reported, since discordance with absolute values may lead to misinterpretation of CBC data. Current Interpretive Data was last revised on 2017. Testing performed by: [address] [address] Basophil pct 0.4 % MARY JANE Comment: Interpretive Data Percent cell count reference ranges are not reported, since discordance with absolute values may lead to misinterpretation of CBC data. Current Interpretive Data was last revised on 2017. Testing performed by: [address] [address] Blood 01/10/2022 1:17 PM CDT 01/10/2022 1:31 PM CDT us Melvin Sy MD LAB BLOOD ORDERABLES F inal Result [facility] [address] [facility] Department [place] [address] * (ABNORMAL) Comprehensive metabolic panel (01/10/2022 1:17 PM CDT) Sodium 136 135 - 145 mmol/L MARY JANE PHAM Comment:Testing performed by : [address] [address] Potassium, pl 4.7 3.3 - 4.9 mmol/L MARY JANE PHAM Comment:Testing performed by : [address] [address] Chloride 100 97 - 110 mmol/L MARY JANE PHAM Comment:Testing performed by : [address] [address] CO2 26 22 - 32 mmol/L MARY JANE PHAM Comment:Testing performed by : [address] [address] Anion gap 10 2 - 15 mmol/L MARY JANE Comment:Testing performed by : [address] [address] BUN 16 8 - 25 mg/dL MARY JANE Comment:Testing performed by : [address] [address] Creatinine 0.90 0.60 - 1.10 mg/dL MARY JANE Comment:Testing performed by : [address] [address] Glucose 236(H) 70 - 199 mg/dL [facility] Comment: Interpretive Data Fasting glucose [...] was last revised 2017. Testing performed by: [address] [address] Calcium 9.7 8.5 - 10.3 mg/dL MARY JANE Comment:Testing performed by : [address] [address] Bilirubin, total 0.6 0.1 - 1.2 mg/dL MARY JANE Comment:Testing performed by : [address] [address] Protein, pl 8.6(H) 6.5 - 8.5 g/dL MARY JANE Comment:Testing performed by : [address] [address] Albumin 4.3 3.5 - 5.0 g/dL MARY JANE Comment:Testing performed by : [address] [address] Alk phos 94 40 - 130 Units/L MARY JANE Comment:Testing performed by : [address] [address] ALT 16 7 - 45 Units/L MARY JANE PHAM Comment:Testing performed by : [address] [address] AST 24 10 - 45 Units/L MARY JANE PHAM Comment: HEMOLYZED: Hemolysis interferes with the above test. Testing performed by: [address] [address] Blood 01/10/2022 1:17 PM CDT 01/10/2022 1:31 PM CDT us Melvin Sy MD LAB BLOOD ORDERABLES F inal Result MARY JANE [address] [facility] Department [place] [address] * CBC with auto differential (01/10/2022 1:17 PM CDT) WBC 9.3 3.8 - 9.9 K/cumm MARY JANE PHAM Comment:Testing performed by : [address] [address] Hgb 13.0 11.9 - 15.5 g/dL MARY JANE PHAM Comment:Testing performed by : [address] [address] Hct 39.9 35.6 - 45.5 % MARY JANE PHAM Comment:Testing performed by : [address] [address] Plt 317 150 - 400 K/cumm MARY JANE Comment:Testing performed by : [address] [address] MPV 9.6 9.1 - 12.3 fL MARY JANE PHAM Comment:Testing performed by : [address] [address] RBC 4.54 3.90 - 5.20 M/cumm MARY JANE PHAM Comment:Testing performed by : [address] [address] MCV 87.9 81.3 - 96.4 fL MARY JANE PHAM Comment:Testing performed by : [address] [address] MCH 28.6 27.1 - 33.3 pg MARY JANE PHAM Comment:Testing performed by : [address] [address] MCHC 32.6 32.3 - 35.7 g/dL MARY JANE PHAM Comment:Testing performed by : [address] [address] RDW CV 13.7 11.1 - 14.9 % MARY JANE PHAM Comment:Testing performed by : [address] [address] RDW SD 43.9 35.7 - 48.1 fL MARY JANE PHAM Comment:Testing performed by : [address] [address] NRBC abs 0.00 0.00 - 0.01 K/cumm MARY JANE PHAM Comment:Testing performed by : [address] [address] Blood 01/10/2022 1:17 PM CDT 01/10/2022 1:31 PM CDT us Melvin Sy MD LAB BLOOD ORDERABLES F inal Result MARY JANE [facility] [facility] Department of Laboratories [place], [place] [id number] * (ABNORMAL) Urinalysis reflex to microscopic and culture Urine (01/10/2022 1:17 PM CDT) Color, ur Yellow Yellow MARY JANE PHAM Comment:Testing performed by : [address] [address] Clarity, ur Clear Clear MARY JANE PHAM Comment:Testing performed by : [address] [address] Specific gravity, ur 1.025 1.003 - 1.030 MARY JANE PHAM Comment:Testing performed by : [address] [address] pH, urine 5.5 MARY JANE PHAM Comment:Testing performed by : [address] [address] Protein, ur ql Negative Negative MARY JANE Comment:Testing performed by : [facility], [address] [place] [address], [place]., [address] Glucose, ur ql Negative Negative MARY JANE Comment:Testing performed by : [facility], [address] [place] [address], [place]., [address] Ketones, ur Negative Negative MARY JANE Comment:Testing performed by : [address], [place]., [address] Bilirubin, ur Negative Negative MARY JANE Comment:Testing performed by : [facility], [address] [place] [address], [place]., [address] Blood, ur Trace(A) Negative MARY JANE Comment:Testing performed by : [address], [place]., [address] Urobilinogen, ur 0.2 <2.0 mg/dL MARY JANE Comment:Testing performed by : [address], [place]., [address] Nitrite, ur Negative Negative MARY JANE Comment:Testing performed by : [address], [place]., [address] Leukocyte esterase, ur Negative Negative MARY JANE Comment:Testing performed by : [address], [place]., [address] UA reflex comment Reflex to microscopic UA will be performed. MARY JANE Comment:Testing performed by : [address], [place]., [address] Urine 01/10/2022 1:17 PM CDT 01/10/2022 1:31 [...] tendency for uric acid stone formation. Source: [employer] [place]. Last revised 05-04-2017 us Melvin Sy MD LAB MICROBIOLOGY - GEN ERAL ORDERABLES Final Result MARY JANE [address] [facility] [place] [address] documented in this encounter Visit Diagnoses Diagnosis Wellness examination- Primary Suprapubic pain Abdominal pain, other specified site documented in this encounter Care Teams [employer]spring Former Arbor End Relationship Specialty Start Date End Date Justen Gale MD 2 [facility] [address] [place] [address] PCP - General 10/09/17 Liu Jerez MD Consulting Physician Gastroenterology 07/28/17 [place] [address] [facility] [address] [place] [address] Consulting Physician Pulmonary Disease 08/03/17 Khris Arthur MD [address] [facility] [address] [place] [address] Medical Oncologist/Dough Machine Operator Medical Oncology 10/23/17 [place] [address] [facility] [address] [place] [address] Surgeon Orthopedic Surgery 10/23/17 [place] [address] [facility] [address] [place] [address] Consulting Physician Pain Management 10/23/17 [place] [address] [facility] [address] [place] [address] Referring Physician General Surgery 01/26/18 [place] [address] [facility] [address] [place] [address] Consulting Physician Neurology 01/26/18 documented as of this encounter
--- OUTSIDE RECORDS SUMMARY | 2024-04-26 09:18 | XMS_ITS | Encounter Summary ---
Author Organization [facility] Address [address] [place] [address] Phone Care Team Providers Care X Ray Service Engineer Name Role Phone Liu Jerez MD Unavailable Albert Corbin MD Unavailable Justen Gale MD Primary Care Provider [phone] Khris Arthur MD Unavailable [phone] Ko Melendez MD Unavailable [phone] John Paul Moyer MD Unavailable Annel Rod MD Unavailable Anali MARSHALL MD, Carlos M. 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 Gender Identity Not on file Sexual [...] documented as of this encounter Care Teams X Ray Service Engineer Relationship Specialty Start Date End Date Justen Gale MD [address] [address] PCP - General 10/09/17 Liu Jerez MD Consulting Physician Gastroenterology 07/28/17 [place] [address] [address] [facility] [address] [place] [address] Consulting Physician Pulmonary Disease 08/03/17 Khris Arthur MD [address] [facility] [address] [place] [address] Medical Oncologist/Senior Advisor Medical Oncology 10/23/17 [place] [address] [facility] [facility] [address] [place] [address] Surgeon Orthopedic Surgery 10/23/17 [place] [address] [address] [facility] [address] [place] [address] Consulting Physician Pain Management 10/23/17 [place] [address] [facility] [address] [place] [address] Referring Physician General Surgery 01/26/18 [place] [address] [address] [facility] [address] [place] [address] Consulting Physician Neurology 01/26/18 documented as of this encounter
--- OUTSIDE RECORDS SUMMARY | 2024-04-26 09:18 | XMS_ITS | Encounter Summary ---
Author Organization [facility] Healthcare Address [address] [place] [address] Care Team Providers Care Ribbon Inker Name Role Phone Liu Jerez MD Unavailable Albert Corbin MD Unavailable Gerardo Hoffman MD Primary Care Provider Khris Arthur MD Unavailable [phone] Ko Melendez MD Unavailable [phone] John Paul Moyer MD Unavailable [phone] Annel Rod MD Unavailable Anali MARSHALL MD, Carlos M. Unavailable Reason for Visit * Reason Comments Muscle Pain * Auth/Cert Specialty Diagnoses / Procedures Referred By Elyssa t Referred To Contact Diagnoses 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) Procedures Referral ID Status Reason Start Date Expiration Date Visits Re quested Visits Authorized [id number] 1 1 Encounter Details Date Type Department Care Team (Latest Contact Info) Description 12/22/2021 10:47 PM CDT - 12/26/2021 3:15 PM CDT Hospital Encounter [facility] 5 Med Surg [address] [place] [address] Drew Calero MD [address] [place] [address] Kirit Everett DO [address] [place] [address] Alfonso Kelsey MD [address] [place] [address] 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) (Primary Dx); [...] on file 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 Gender Identity Not on file Sexual [...] Patient Age - 66 yrs Patient - [id number] [facility] - [id number] Document Creation Date: 12/26/2021 Admitting Provider, MD: Drew Calero MD Discharge Provider, MD: Alfonso Kelsey MD Primary Care Physician at Discharge: Gerardo Hoffman MD [phone] Admission Date: 12/22/2021 Discharge Date/time: 12/26/2021 Admission Location: [facility] LOS - LOS: 3 days DETAILS OF HOSPITAL STAY Hospital Problems/Diagnoses Principal Problem: 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) Active Problems: Essential hypertension History of DVT (deep vein thrombosis) History of pulmonary embolism Chronic anticoagulation Type 2 diabetes mellitus with neurologic complication, without long-term current use of insulin ([facility] ([facility]) Dyslipidemia Reason for Hospitalization: Chills/Concern for UTI Hospital Course: Patient with history of chronic pain status post spinal cord stimulator complicated by hardware infection and subsequent removal admitted to [facility] with chief complaints of myalgias and malaise. [...] Family Medicine Relationship: PCP - General [address] [address] Next Steps: Follow up Instructions: 1 week Questions: Instructions for follow-up (appointment date and time): 1 week To provider: GERARDO HOFFMAN Please schedule an appointment with the following provider(s): Gerardo Hoffman MD 2 [facility] [address] [place] [address] 1 week ANCILLARY INFORMATION Other [...] Recent guidelines by the Fleischner Society (Radiology 283486,2017) divides patient into low vs. high risk [...] immunosuppression, or patients with known primary cancer. http://pubs.rsna.org/doi/pdf/10.1148/radiol.0223851837 LIVER: Normal size. No identified cystic or [...] Findings Committee. J Am Wang Radiol. 2017 Nov;14(8):1159-4045. THIS IS AN ELECTRONICALLY VERIFIED FINAL REPORT 12/23/2021 2:21 AM - Electronically signed by Pb Carvalho M.D. BB: SKIP ReportID: [id number] Reading Location: [place] [address] Recent Labs: Recent Labs Lab Units 12/26/21 [...] 0.70 -- 0.60 -- 0.60 -- 0.70 PIF-OHA-PHVODQB mL/min/1.73 m2 -- -- 96 -- 96 [...] insulin Diet effective now Question Answer Comment (MHB/MHE/JAIL) Diet type Restricted Fat / Sodium Restriction: [...] RN Patient Emergency Contact: Primary Emergency Contact: Jimime Marques, Immunization Status at Discharge Immunization History Administered Date(s) Administered Influenza, Quadrivalent, Split, Intramuscular 02/11/2015, 02/06/2017 Influenza, Quadrivalent, Split, Preservative Free, Intramuscular 02/14/2017, 01/24/2018, 02/25/2019, 01/18/2020, 05/04/2021 Influenza, Trivalent, Intramuscular 05/07/2013, 03/07/2014, 01/23/2016, 02/03/2020 Influenza, Unspecified 05/07/2013, 03/07/2014, 01/23/2016 [employer] ([employer]) SARS-CoV-2 Vaccination 06/29/2020 Tdap 02/23/2016 Alfonso Kelsey MD documented in this encounter Discharge Instructions * Attachments The following attachments cannot be sent through Care Everywhere. * Urinary Tract Infection in Women (Discharge Care) (Maltese) documented in this encounter Medications at Time of Discharge albuterol HFA (PROVENTIL HFA,VENTOLIN HFA,PROAIR HFA) 90 mcg/actuation inhaler Inhale 2 puffs every 6 (six) hours as needed for wheezing or shortness of breath 1 BD Ultra-Fine Short Pen Needle 31 gauge x 5/16 needle USE 6 TIMES DAILY DIRECTED 2 blood glucose diagnostic (PocketbookTouch Ultra Test) strip 4 (four) times a [...] this encounter Progress Notes * Bianca Simons, CARBURETOR SPECIALIST - 12/26/2021 8:15 AM CDT Physical Therapy [...] End Date End Date PT LTG - [facility] [place] [place] 1 12/24/21 01/07/22 -- Goal Details: 1) [...] on rivaroxaban, type 2 diabetes admitted to [facility] with chief complaints of myalgias and [...] 650 mg oral Q4H PRN Melly Mireles, NETWORKS COMPUTER CONSULTANT 650 mg at amitriptyline (ELAVIL) tablet 25 mg 25 mg oral Nightly Melly Mireles, NETWORKS COMPUTER CONSULTANT 25 mg at 12/24/212054 bisacodyL (DULCOLAX) suppository 10 mg 10 mg rectal Daily PRN Alfonso Kelsey MD bisacodyl EC (DULCOLAX EC) tablet 10 mg 10 mg oral Daily PRN Alfonso Kelsey MD sodium chloride 0.9% flush 0.5-20 mL 0.5-20 mL intra-catheter Q8H RODERICK Melly Mireles., NETWORKS COMPUTER CONSULTANT 10 mL at 12/25/21 1501 And sodium chloride 0.9% flush 0.5-20 mL 0.5-20 mL intra-catheter PRN Melly Mireles NP And Carrier Fluids for Secondary Infusion - 0.9% Sodium Chloride 30 mL intravenous PRN Melly Mireles, NETWORKS COMPUTER CONSULTANT dextrose gel in packet 15 g 15 [...] 5-10 mL oral Q4H PRN Melly Mireles, NETWORKS COMPUTER CONSULTANT ondansetron ODT (ZOFRAN-ODT) disintegrating tablet 4 mg 4 mg oral Q6H PRN Melly Mireles, NETWORKS COMPUTER CONSULTANT Or ondansetron (ZOFRAN) injection 4 mg 4 mg intravenous Q6H PRN Melly Mireles, NETWORKS COMPUTER CONSULTANT 4 mg at 12/25/21 0801 oxybutynin (DITROPAN) tablet 5 mg 5 mg oral BID Melly Mireles, NETWORKS COMPUTER CONSULTANT 5 mg at 12/25/[address] (PROTONIX) extended release tablet 40 mg 40 mg oral BID Melly Mireles, NETWORKS COMPUTER CONSULTANT 40 mg at 12/25/21 0805 polyethylene glycol (MIRALAX) packet 17 g 17 g oral Daily PRN Alfonso Kelsey MD ramelteon (ROZEREM) tablet 8 mg 8 mg oral Nightly PRN Alfonso Kelsey MD rivaroxaban (XARELTO) tablet 20 mg 20 mg oral Daily Mireles, Melly G., NETWORKS COMPUTER CONSULTANT 20 mg at 12/25/21804 rOPINIRole (REQUIP) tablet 5 mg 5 mg oral Nightly MirelesCaesarMelly G., NETWORKS COMPUTER CONSULTANT 5 mg at 12/24/212054 A/P: Principal Problem: 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) Active Problems: Essential hypertension History of DVT (deep vein thrombosis) History of pulmonary embolism Chronic anticoagulation Type 2 diabetes mellitus with neurologic complication, without long-term current use of insulin ([facility] ([facility]) Dyslipidemia Resolved Problems: No resolved hospital problems. [...] been used dictate and transcribe this document. Fast [employer] Shift Lead variances may occur. Despite proofreading, typographical errors may occur. Alfonso Kelsey MD 12/25/2021 6:25 PM * Bull Hurt, CARBURETOR SPECIALIST - 12/25/2021 10:10 AM CDT Physical Therapy [...] End Date End Date PT LTG - [facility] [place] [place] 1 12/24/21 01/07/22 -- Goal Details: 1) [...] walker;Single point cane Prior Function Level of [place] Independent functional transfers;Independent with ambulation;Needs assistancewith homemaking;Independent [...] (from Occupational Therapy) Active Problems Problem: OT [facility] [place] [place] Start Date: 12/24/21 Goal Start Date Expected End Date End Date OT [facility] [place] [place] 1 12/24/21 01/07/22 -- Goal Details: 1) VERBALIZE UNDERSTANDING EC/WS TECHS FOR ADL/IADL. Goal Start Date Expected End Date End Date OT [facility] [place] [place] 2 12/24/21 01/07/22 -- Goal Details: 2) DEMO INDEP WITH UE HEP TO IMPROVE ENDURANCE FOR ADL/MOBILITY. Goal Start Date Expected End Date End Date OT [facility] [place] [place] 3 12/24/21 01/07/22 -- Goal Details: 3) COMPLETE DYNAMIC BALANCE ACTIVITY/ITEM RETRIEVAL (4/4 items) IN ROOM WITH GOOD BALANCE/SAFETY. Goal Start Date Expected End Date End Date OT LTG - Mis 4 12/24/21 01/07/22 -- Goal Details: 4) DEMO INDEP WITH LE ADL SBA WITH USE OF AE PRN. Goal Start Date Expected End Date End Date OT LT - [facility] [place] [place] 5 12/24/21 01/07/22 -- Goal Details: COMPLETE [...] cane at home Prior Function Level of [place] Independent with ADLs;Independent functional transfers;Independent with ambulation [...] End Date End Date PT LTG - [facility] [place] [place] 1 12/24/21 01/07/22 -- Goal Details: 1) [...] on rivaroxaban, type 2 diabetes admitted to [facility] with chief complaints of myalgias and [...] 650 mg oral Q4H PRN Melly Mireles., NETWORKS COMPUTER CONSULTANT 650 mg at amitriptyline (ELAVIL) tablet 25 mg 25 mg oral Nightly Melly Mireles., NETWORKS COMPUTER CONSULTANT 25 mg at 12/23/212041 bisacodyL (DULCOLAX) suppository 10 mg 10 mg rectal Daily PRN Alfonso Kelsey MD bisacodyl EC (DULCOLAX EC) tablet 10 mg 10 mg oral Daily PRN Alfonso Kelsey MD sodium chloride 0.9% flush 0.5-20 mL 0.5-20 mL intra-catheter Q8H RODERICK Melly Mireles G., NETWORKS COMPUTER CONSULTANT 10 mL at 12/23/212041 And sodium chloride 0.9% flush 0.5-20 mL 0.5-20 mL intra-catheter PRN Melly Mireles, NETWORKS COMPUTER CONSULTANT And Carrier Fluids for Secondary Infusion - 0.9% Sodium Chloride 30 mL intravenous PRN Melly Mireles, NETWORKS COMPUTER CONSULTANT dextrose gel in packet 15 g 15 [...] 5-10 mL oral Q4H PRN Melly Mireles, NETWORKS COMPUTER CONSULTANT morphine injection 2 mg 2 mg intravenous Q3H PRN Melly Mireles, NETWORKS COMPUTER CONSULTANT 2 mg at 12/24/21 1851 ondansetron ODT (ZOFRAN-ODT) disintegrating tablet 4 mg 4 mg oral Q6H PRN Melly Mireles, NETWORKS COMPUTER CONSULTANT Or ondansetron (ZOFRAN) injection 4 mg 4 mg intravenous Q6H PRN Melly Mireles, NETWORKS COMPUTER CONSULTANT 4 mg at 12/24/21 1515 oxybutynin (DITROPAN) tablet 5 mg 5 mg oral BID Melly Mireles, NETWORKS COMPUTER CONSULTANT 5 mg at 12/24/[address] (PROTONIX) extended release tablet 40 mg 40 mg oral BID Melly Mireles, NETWORKS COMPUTER CONSULTANT 40 mg at 12/24/21832 polyethylene glycol (MIRALAX) packet 17 g 17 g oral Daily PRN Alfonso Kelsey MD ramelteon (ROZEREM) tablet 8 mg 8 mg oral Nightly PRN Alfonso Kelsey MD rivaroxaban (XARELTO) tablet 20 mg 20 mg oral Daily Mireles, Melly G., NETWORKS COMPUTER CONSULTANT 20 mg at 12/24/21832 rOPINIRole (REQUIP) tablet 5 mg 5 mg oral Nightly Mireles, Melly G., NETWORKS COMPUTER CONSULTANT 5 mg at 12/23/212041 sodium chloride 0.9% infusion 100 mL/hr intravenous Continuous Mireles, Melly G., NETWORKS COMPUTER CONSULTANT 100 mL/hr at 12/24/21832 100 mL/hr at 12/24/21832 A/P: Principal Problem: 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) Active Problems: Essential hypertension History of DVT (deep vein thrombosis) History of pulmonary embolism Chronic anticoagulation Type 2 diabetes mellitus with neurologic complication, without long-term current use of insulin ([facility] ([facility]) Dyslipidemia Resolved Problems: No resolved hospital problems. [...] cpap Case discussed with Case Management and Electroplater Helper Medical complexity/risk:Level 3: 36 min spent and > 50% counseling/coordination of care Voice recognition software MModal Fluency Direct may have been used dictate and transcribe this document. Fast Food Shift Lead variances may occur. Despite proofreading, typographical errors [...] Type of Healthcare Directive Durable power of research attorney for health care;Living will Interventions Interventions [...] [facility] Plan Includes: DX: complicated UTI. Merrem IV. Blood and urine cultures pending. CT ABD/Pelvis completed. VSS room air. Primary Source of Transportation: [facility] Health Insurance Coverage: [facility] Medicare Prescription Coverage: [facility] Medicare Pharmacy: [facility] Primary Care Provider: Gerardo Hoffman MD Prior to Admission: Primary Caregiver: Self Support System: Children Home Care Services: Yes Type of Home Care Services: Home infusion, Home therapies Home care service name and phone number: [facility] Home Health-completed therapy and infusion approx 10 days prior. Durable Medical Equipment: CPAP/Bi-PAP (sleep central) Living Arrangements: Children Type of Residence: Private residence (12/23/[address]) SDOH: Transportation:daughters Financial Resource: Housing: Social Connections: Food Insecurity: Alcohol Use: PHQ Screening Potential discharge needs include: Home Health: IV therapy, Physical therapy, Occupational therapy, care home (pending therapy eval) (12/23/219[address]) Met bedside with [...] Collaboration with patient, MD, direct care nurse, Electroplater Helper, and other members of the health care team to assure needed interventions completed. 2. Return patient to optimal level of self-care post discharge. 3. Oracle Identity Management Consultant will follow for Discharge Planning - interventions as needed 4. Anticipated level of care at discharge 5. Planned Discharge Disposition Coco Bernal RN documented in this encounter H&P Notes * Melly Mireles NP - 12/23/2021 9:56 AM CDT Images from the original note were not included. History and Physical Date of Service: 12/23/2021 Primary Care Physician: Gerardo Hoffman MD [phone] CHIEF COMPLAINT: Patient is a 66 y.o. [...] Hypertension Osteoarthritis osteoarthritis PE (pulmonary thromboembolism) ([facility] 6 TIMES DAILY DIRECTED blood glucose diagnostic ([employer] Ultra Test) strip 4 (four) times a [...] Recent guidelines by the Fleischner Society (Radiology 820674,2017) divides patient into low vs. high risk [...] immunosuppression, or patients with known primary cancer. http://pubs.rsna.org/doi/pdf/10.1148/radiol.5635135985 LIVER: Normal size. No identified cystic or [...] Pb Carvalho M.D. BB: SKIP Report ID: [id number] Reading Location: [place] [address] ASSESSMENT/PLAN: Principal Problem: 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) Active Problems: Essential hypertension History of DVT (deep vein thrombosis) History of pulmonary embolism Chronic anticoagulation Type 2 diabetes mellitus with neurologic complication, without long-term current use of insulin ([facility] ([facility]) Dyslipidemia Resolved Problems: No resolved hospital problems. Full Code Suspected complicated UTI Reports fatigue, malaiase, body ache Afebrile WBC 10 UCX, BCx pending Ertapenem ordered given h/o multiple allergies and based on prevous cx results Gentle IVF, NS @ 75ml/hr x 1 L only PRN [place] HTN Resume home meds H/o DVT/PE Cont [...] recent spinal cord stimulator infection presenting [facility] with malaise and body aches. [...] without long-term current use of insulin ([facility] ([facility]) Dyslipidemia Resolved Problems: No resolved hospital problems. Malaise/Body Aches/Possible UTI - blood and urine cx pending - continue ertapenem due to prior cultures growing ecoli with cephalosporin allergies - monitor white count and temp Type 2 Diabetes - basal bolus insulin with SSI - monitor accuchecks Chronic Paintyp Morbid Obesity MDM moderate Alfonso Neptali Kelsey MD 9:44 PM 12/23/2021 [facility] Hospitalist Group documented in this encounter Nursing Notes * Farzaneh Valero RN - 12/26/2021 2:51 PM CDT Iv removed and intact at discharge. Patient educated about discharge information and medications. Questions encouraged and answered. Patient verbalized understanding. Order for transport placed to take patient to discharge. * Jesica aSntiago RN - 12/23/2021 7:11 AM CDT Patient [...] Hypertension Hypertension Osteoarthritis osteoarthritis PE (pulmonary thromboembolism) ([facility] ([facility]) [...] Thought content normal. Judgment: Judgment normal. Procedures [facility] Labs Reviewed URINALYSIS AND REFLEX TO [...] tendency for uric acid stone formation. Source: [facility] [employer].Last revised 05-04-2017 CBC WITH AUTO DIFFERENTIAL - [...] Course as of 12/23/21 0017 Time: 12/22 3649 Comment: The patient has been informed that they may have pre-hypertension or Hypertension based ngoc blood pressure reading in the emergency department. I recommend that the patient call the primarycare provider listed on their discharge instructions or a physician of their choice this week to arrange follow up for further evaluation of possible pre-hypertension or Hypertension. By: Abiola Lees PA Time: 12/22 5103 Comment: The patient has been affiliated with [...] afterZofran. By: Abiola Lees PA Time: 12/22 9090 Comment: Dr. Everett will take over care [...] UTI. This note was prepared by Prince Andesren, acting as a Scribe for Kirit Everett [...] mg/dL MARY JANE Comment:Testing performed by : [address] [address] Blood 12/26/2021 12:0 9 PM CDT 12/26/2021 12:09 PM CDT Alfonso Kelsey MD LAB POCT ORDERABLES - NILESH CE Final Result Performing Organization Address [facility] Co de Phone Number [address] [place] [address] * POCT glucose (12/26/2021 8:35 AM CDT) Glucose, POC 153 70 - 199 mg/dL MARY JANE Comment:Testing performed by : [address] [address] Blood 12/26/2021 8:35 AM CDT 12/26/2021 8:35 AM CDT Alfonso Kelsey MD LAB POCT ORDERABLES - NILESH CE Final Result Performing Organization Address City/[facility]/ZIP Co de Phone Number [address] [address] * eGFR (12/26/2021 4:01 AM CDT) eGFR [...] was last reviewed 2021. Testing performed by: [address] [address] Blood 12/26/2021 4:01 AM CDT 12/26/2021 5:31 AM CDT us Alfonso Kelsey MD LAB BLOOD ORDERABLES Final Result MARY JANE PHAM [address] Department [place] [address] * (ABNORMAL) CBC without differential (12/26/2021 4:01 AM CDT) Pathologist [facility] WBC 8.4 3.8 - 9.9 K/cumm MARY JANE PHAM Comment:Testing performed by : [address] [address] Hgb 11.6(L) 11.9 - 15.5 g/dL MARY JANE Comment:Testing performed by : [address], [address] Hct 36.7 35.6 - 45.5 % MARY JANE Comment:Testing performed by : [address], [address] Plt 275 150 - 400 K/cumm MARY JANE Comment:Testing performed by : [address], [address] MPV 10.3 9.1 - 12.3 fL MARY JANE Comment:Testing performed by : [address], [address] RBC 3.99 3.90 - 5.20 M/cumm MARY JANE Comment:Testing performed by : [address], [address] MCV 92.0 81.3 - 96.4 fL MARY JANE Comment:Testing performed by : [address], [address] MCH 29.1 27.1 - 33.3 pg MARY JANE Comment:Testing performed by : [address], [address] MCHC 31.6(L) 32.3 - 35.7 g/dL MARY JANE Comment:Testing performed by : [address], [address] RDW CV 13.2 11.1 - 14.9 % MARY JANE Comment:Testing performed by : [address], [address] RDW SD 44.6 35.7 - 48.1 fL MARY JANE Comment:Testing performed by : [address], [address] NRBC abs 0.00 0.00 - 0.01 K/cumm MARY JANE Comment:Testing performed by : [address], [address] Blood 12/26/2021 4:01 AM CDT 12/26/2021 5:31 AM CDT us Alfonso Kelsey MD LAB BLOOD ORDERABLES Final Result MARY JANE PHAM [address] Department [place] [address] * Basic metabolic panel (12/26/2021 4:01 AM CDT) Sodium 137 135 - 145 mmol/L MARY JANE Comment:Testing performed by : [address] [address] Potassium, pl 4.0 3.3 - 4.9 mmol/L MARY JANE Comment:Testing performed by : [address] [address] Chloride 101 97 - 110 mmol/L MARY JANE Comment:Testing performed by : [address] [address] CO2 28 22 - 32 mmol/L MARY JANE Comment:Testing performed by : [address] [address] Anion gap 8 2 - 15 mmol/L MARY JANE Comment:Testing performed by : [address] [address] BUN 13 8 - 25 mg/dL MARY JANE Comment:Testing performed by : [address] [address] Creatinine 0.70 0.60 - 1.10 mg/dL MARY JANE Comment:Testing performed by : [address] [address] Glucose 169 70 - 199 mg/dL MARY [...] was last revised 2017. Testing performed by: [facility], [address] [place] [address]., [address] Calcium 9.3 8.5 - 10.3 mg/dL MARY JANE PHAM Comment:Testing performed by : [address] [address] Blood 12/26/2021 4:01 AM CDT 12/26/2021 5:31 AM CDT Alfonso Kelsey MD LAB BLOOD ORDERABLES Final Result Performing Organization Address [facility] de Phone Number [address] [place] [address] * POCT glucose (12/25/2021 7:02 PM CDT) Glucose, POC 179 70 - 199 mg/dL MARY JANE Comment:Testing performed by : [address] [address] Glucose comment 1 Use This Result MARY JANE PHAM Comment:Testing performed by : [address] [address] Blood 12/25/2021 7:02 PM CDT 12/25/2021 7:02 PM CDT us Alfonso Kelsey MD LAB POCT ORDERABLES - NILESH CE Final Result Performing Organization Address [facility] de Phone Number [address] [place] [address] * POCT glucose (12/25/2021 11:56 AM CDT) Glucose, POC 134 70 - 199 mg/dL MARY JANE Comment:Testing performed by : [address] [address] Blood 12/25/2021 11:5 6 AM CDT 12/25/2021 11:56 AM CDT us Alfonso Kelsey MD LAB POCT ORDERABLES - NILESH CE Final Result MARY JANE [address] Department [place] [address] * eGFR (12/25/2021 9:32 AM CDT) eGFR [...] last reviewed 2021. Testing performed by: [facility], [address] [place] [address]., [address] Blood 12/25/2021 9:32 AM CDT 12/25/2021 9:42 AM CDT us Alfonso Kelsey MD LAB BLOOD ORDERABLES Final Result MARY JANE [address] Department [place] [address] * Creatine kinase (CK), total (12/25/2021 9:32 AM CDT) CK 78 30 - 200 Units/L MARY JANE Comment:Testing performed by : [address] [address] Blood 12/25/2021 9:32 AM CDT 12/25/2021 9:42 AM CDT us Alfonso Kelsey MD LAB BLOOD ORDERABLES Final Result [facility] [address] Department of Laboratories [place], [place] [id number] * (ABNORMAL) CBC without differential (12/25/2021 9:32 AM CDT) Pathologist [facility] WBC 7.1 3.8 - 9.9 K/cumm MARY JANE Comment:Testing performed by : [address] [address] Hgb 11.2(L) 11.9 - 15.5 g/dL MARY JANE Comment:Testing performed by : [address] [address] Hct 35.5(L) 35.6 - 45.5 % MARY JANE Comment:Testing performed by : [address] [address] Plt 251 150 - 400 K/cumm MARY JANE Comment:Testing performed by : [address] [address] MPV 10.0 9.1 - 12.3 fL MARY JANE Comment:Testing performed by : [address] [address] RBC 3.85(L) 3.90 - 5.20 M/cumm MARY JANE Comment:Testing performed by : [address] [address] MCV 92.2 81.3 - 96.4 fL MARY JANE Comment:Testing performed by : [address], [address] MCH 29.1 27.1 - 33.3 pg MARY JANE PHAM Comment:Testing performed by : [address] [address] MCHC 31.5(L) 32.3 - 35.7 g/dL MARY JANE PHAM Comment:Testing performed by : [address] [address] RDW CV 13.4 11.1 - 14.9 % MARY JANE PHAM Comment:Testing performed by : [address] [address] RDW SD 46.1 35.7 - 48.1 fL MARY JANE PHAM Comment:Testing performed by : [address] [address] NRBC abs 0.00 0.00 - 0.01 K/cumm MARY JANE PHAM Comment:Testing performed by : [address] [address] Blood 12/25/2021 9:32 AM CDT 12/25/2021 9:47 AM CDT us Alfonso Kelsey MD LAB BLOOD ORDERABLES Final Result [facility] Department [place] [address] * Basic metabolic panel (12/25/2021 9:32 AM CDT) Sodium 137 135 - 145 mmol/L MARY JANE PHAM Comment:Testing performed by : [address] [address] Potassium, pl 4.0 3.3 - 4.9 mmol/L MARY JANE PHAM Comment:Testing performed by : [address] [address] Chloride 102 97 - 110 mmol/L MARY JANE PHAM Comment:Testing performed by : [address] [address] CO2 27 22 - 32 mmol/L MARY JANE PHAM Comment:Testing performed by : [address] [address] Anion gap 8 2 - 15 mmol/L MARY JANE PHAM Comment:Testing performed by : [address] [address] BUN 12 8 - 25 mg/dL MARY JANE PHAM Comment:Testing performed by : [address] [address] Creatinine 0.70 0.60 - 1.10 mg/dL MARY JANE PHAM Comment:Testing performed by : [address] [address] Glucose 158 70 - 199 mg/dL MARY [...] was last revised 2017. Testing performed by: [address] [address] Calcium 9.3 8.5 - 10.3 mg/dL MARY JANE PHAM Comment:Testing performed by : [address] [address] Blood 12/25/2021 9:32 AM CDT 12/25/2021 9:42 AM CDT us Alfonso Kelsey MD LAB BLOOD ORDERABLES Final Result MARY JANE [address] [facility] Department of Laboratories [place], [place] [id number] * POCT glucose (12/25/2021 7:08 AM CDT) [facility] Signature Glucose, POC 153 70 - 199 mg/dL MARY JANE PHAM Comment:Testing performed by : [address] [address] Blood 12/25/2021 7:08 AM CDT 12/25/2021 7:08 AM CDT Alfonso Kelsey MD LAB POCT ORDERABLES - NILESH CE Final Result Performing Organization Address [facility] Co de Phone Number [facility] [place] [address] * POCT glucose (12/24/2021 7:37 PM CDT) Glucose, POC 137 70 - 199 mg/dL MARY JANE Comment:Testing performed by : [facility], [address] [place] [address]., [address] Glucose comment 1 Use This Result MARY JANE Comment:Testing performed by : [address] [address] Blood 12/24/2021 7:37 PM CDT 12/24/2021 7:37 PM CDT Alfonso Kelsey MD LAB POCT ORDERABLES - NILESH CE Final Result Performing Organization Address [facility] de Phone Number MARY JANE [address] [address] * POCT glucose (12/24/2021 4:36 PM CDT) Glucose, POC 160 70 - 199 mg/dL MARY JANE Comment:Testing performed by : [address] [address] Glucose comment 1 Use This Result MARY JANE Comment:Testing performed by : [facility], [address] [place] [address]., [address] Blood 12/24/2021 4:36 PM CDT 12/24/2021 4:36 PM CDT Alfonso Kelsey MD LAB POCT ORDERABLES - NILESH CE Final Result Performing Organization Address City/[facility] Co de Phone Number MARY JANE [address] [place] [address] * POCT glucose (12/24/2021 12:14 PM CDT) Glucose, POC 103 70 - 199 mg/dL MARY JANE Comment:Testing performed by : [facility], [address] [place] [address]., [address] Glucose comment 1 Use This Result MARY JANE Comment:Testing performed by : [address] [address] Blood 12/24/2021 12:1 4 PM CDT 12/24/2021 12:14 PM CDT Alfonso Kelsey MD LAB POCT ORDERABLES - NILESH CE Final Result Performing Organization Address [facility] de Phone Number [address] [place] [address] * POCT glucose (12/24/2021 7:48 AM CDT) [facility] Glucose, POC 108 70 - 199 mg/dL MARY JANE Comment:Testing performed by : [facility], [address] [place] [address]., [address] Glucose comment 1 Use This Result MARY JANE Comment:Testing performed by : [address] [address] Blood 12/24/2021 7:48 AM CDT 12/24/2021 7:48 AM CDT us Alfonso Kelsey MD LAB POCT ORDERABLES - NILESH CE Final Result Performing Organization Address [facility] de Phone Number [address] [place] [address] * eGFR (12/24/2021 3:26 AM CDT) Pathologist [facility] eGFR 100 mL/min/1. 73 m2 MARY JANE [...] was last reviewed 2021. Testing performed by: [address] [address] Blood 12/24/2021 3:26 AM CDT 12/24/2021 4:04 AM CDT us Alfonso Kelsey MD LAB BLOOD ORDERABLES Final Result Performing Organization Address City/State/[facility] Co de Phone Number MARY JANE [address] Department [place] [address] * (ABNORMAL) CBC without differential (12/24/2021 3:26 AM CDT) Pathologist [facility] WBC 9.0 3.8 - 9.9 K/cumm MARY JANE PHAM Comment:Testing performed by : [address] [address] Hgb 11.5(L) 11.9 - 15.5 g/dL MARY JANE PHAM Comment:Testing performed by : [address] [address] Hct 35.8 35.6 - 45.5 % MARY JANE PHAM Comment:Testing performed by : [address] [address] Plt 265 150 - 400 K/cumm MARY JANE PHAM Comment:Testing performed by : [address] [address] MPV 9.7 9.1 - 12.3 fL MARY JANE PHAM Comment:Testing performed by : [address] [address] RBC 3.93 3.90 - 5.20 M/cumm MARY JANE PHAM Comment:Testing performed by : [address] [address] MCV 91.1 81.3 - 96.4 fL MARY JANE PHAM Comment:Testing performed by : [address] [address] MCH 29.3 27.1 - 33.3 pg MARY JANE PHAM Comment:Testing performed by : [address] [address] MCHC 32.1(L) 32.3 - 35.7 g/dL MARY JANE PHAM Comment:Testing performed by : [address] [address] RDW CV 13.4 11.1 - 14.9 % MARY JANE PHAM Comment:Testing performed by : [address] [address] RDW SD 45.0 35.7 - 48.1 fL MARY JANE PHAM Comment:Testing performed by : [address] [address] NRBC abs 0.00 0.00 - 0.01 K/cumm MARY JANE PHAM Comment:Testing performed by : [address] [address] Blood 12/24/2021 3:26 AM CDT 12/24/2021 4:04 AM CDT us Alfonso Kelsey MD LAB BLOOD ORDERABLES Final Result MARY JANE [address] Department [place] [address] * Basic metabolic panel (12/24/2021 3:26 AM CDT) [facility] Sodium 137 135 - 145 mmol/L MARY JANE Comment:Testing performed by : [address], [place]., [address] Potassium, pl 4.0 3.3 - 4.9 mmol/L MARY JANE Comment:Testing performed by : [address], [place]., [address] Chloride 104 97 - 110 mmol/L MARY JANE Comment:Testing performed by : [address], [place]., [address] CO2 26 22 - 32 mmol/L MARY JANE Comment:Testing performed by : [address], [place]., [address] Anion gap 7 2 - 15 mmol/L MARY JANE Comment:Testing performed by : [address], [place]., [address] BUN 14 8 - 25 mg/dL MARY AJNE Comment:Testing performed by : [address], [place]., [address] Creatinine 0.60 0.60 - 1.10 mg/dL MARY JANE Comment:Testing performed by : [address], [place]., [address] Glucose 145 70 - 199 mg/dL [facility] Comment: Interpretive Data Fasting glucose [...] was last revised 2017. Testing performed by: [address] [address] Calcium 9.0 8.5 - 10.3 mg/dL MARY JANE Comment:Testing performed by : [address], [place]., [address] Blood 12/24/2021 3:26 AM CDT 12/24/2021 4:04 AM CDT Alfonso Kelsey MD LAB BLOOD ORDERABLES Final Result Performing Organization Address [facility] Co de Phone Number MARY JANE [address] [place] [address] * POCT glucose (12/23/2021 7:33 PM CDT) Glucose, POC 175 70 - 199 mg/dL MARY JANE Comment:Testing performed by : [address] [address] Glucose comment 1 Use This Result MARY JANE PHAM Comment:Testing performed by : [address] [address] Blood 12/23/2021 7:33 PM CDT 12/23/2021 7:33 PM CDT Alfonso Kelsey MD LAB POCT ORDERABLES - NILESH CE Final Result Performing Organization Address [facility] de Phone Number [address] [place] [address] * POCT glucose (12/23/2021 3:58 PM CDT) Glucose, POC 127 70 - 199 mg/dL MARY JANE Comment:Testing performed by : [address] [address] Blood 12/23/2021 3:58 PM CDT 12/23/2021 3:58 PM CDT Alfonso Kelsey MD LAB POCT ORDERABLES - NILESH CE Final Result Performing Organization Address City/[facility] Co de Phone Number [address] [place] [address] * POCT glucose (12/23/2021 12:39 PM CDT) Glucose, POC 120 70 - 199 mg/dL MARY JANE PHAM Comment:Testing performed by : [address] [place]., [address] Blood 12/23/2021 12:3 9 PM CDT 12/23/2021 12:39 PM CDT us Alfonso Kelsey MD LAB POCT ORDERABLES - NILESH CE Final Result MARY JANE ANKIT [address] Department of Laboratories [place], [place] [id number] * eGFR (12/23/2021 10:44 AM CDT) eGFR [...] last reviewed 2021. Testing performed by: [facility], [address] [place] [address]., [address] Blood 12/23/2021 10:4 4 AM CDT 12/23/2021 11:10 AM CDT us Alfonso Kelsey MD LAB BLOOD ORDERABLES Final Result MARY JANE [address] Department of Laboratories [place], [place] [id number] * Differential, auto (12/23/2021 10:44 AM CDT) Neutrophil abs 5.2 1.7 - 6.5 K/cumm MARY JANE Comment:Testing performed by : [address] [address] Imm gran abs 0.0 0.0 - 0.1 K/cumm MARY JANE Comment:Testing performed by : [address] [address] Lymphocyte abs 2.0 0.8 - 3.3 K/cumm MARY JANE Comment:Testing performed by : [address] [address] Monocyte abs 0.7 0.2 - 0.8 K/cumm MARY JANE Comment:Testing performed by : [address] [address] Eosinophil abs 0.3 0.0 - 0.5 K/cumm MARY JANE Comment:Testing performed by : [address] [address] Basophil abs 0.0 0.0 - 0.1 K/cumm MARY JANE Comment:Testing performed by : [address] [address] Neutrophil pct 63.2 % MARY JANE Comment: Interpretive Data Percent cell count reference ranges are not reported, since discordance with absolute values may lead to misinterpretation of CBC data. Current Interpretive Data was last revised on 2017. Testing performed by: [address] [address] Imm gran pct 0.1 % MARY JANE Comment: Interpretive Data Percent cell count reference ranges are not reported, since discordance with absolute values may lead to misinterpretation of CBC data. Current Interpretive Data was last revised on 2017. Testing performed by: [address] [address] Lymphocyte pct 24.1 % MARY JANE Comment: Interpretive Data Percent cell count reference ranges are not reported, since discordance with absolute values may lead to misinterpretation of CBC data. Current Interpretive Data was last revised on 2017. Testing performed by: [address] [address] Monocyte pct 8.5 % MARY JANE Comment: Interpretive Data Percent cell count reference ranges are not reported, since discordance with absolute values may lead to misinterpretation of CBC data. Current Interpretive Data was last revised on 2017. Testing performed by: [address] [address] Eosinophil pct 3.7 % MARY JANE Comment: Interpretive Data Percent cell count reference ranges are not reported, since discordance with absolute values may lead to misinterpretation of CBC data. Current Interpretive Data was last revised on 2017. Testing performed by: [address] [address] Basophil pct 0.4 % MARY JANE Comment: Interpretive Data Percent cell count reference ranges are not reported, since discordance with absolute values may lead to misinterpretation of CBC data. Current Interpretive Data was last revised on 2017. Testing performed by: [address] [address] Blood 12/23/2021 10:4 4 AM CDT 12/23/2021 11:10 AM CDT Alfonso Kelsey MD LAB BLOOD ORDERABLES Final Result MARY JANE [address] Department of Laboratories [place], [place] [id number] * (ABNORMAL) CRP (acute phase) (12/23/2021 10:44 AM CDT) CRP 15.5(H) <=10.0 mg/L MARY JANE PHAM Comment:Testing performed by : [address] [address] Blood 12/23/2021 10:4 4 AM CDT 12/23/2021 11:10 AM CDT Alfonso Kelsey MD LAB BLOOD ORDERABLES Final Result Performing Organization Address [facility] Co de Phone Number [address] [place] [address] * (ABNORMAL) Erythrocyte sedimentation rate (12/23/2021 10:44 AM CDT) Pathologist [facility] Erythrocyte sedimentation rate 64(H) 1 - 30 mm/hr MARY JANE Comment:Testing performed by : [address] [address] Blood 12/23/2021 10:4 4 AM CDT 12/23/2021 11:10 AM CDT Alfonso Kelsey MD LAB BLOOD ORDERABLES Final Result Performing Organization Address [facility] de Phone Number [address] [address] * Phosphorus (12/23/2021 10:44 AM CDT) Phosphorus, pl 3.4 2.3 - 4.5 mg/dL MARY JANE Comment:Testing performed by : [address] [address] Blood 12/23/2021 10:4 4 AM CDT 12/23/2021 11:10 AM CDT Alfonso Kelsey MD LAB BLOOD ORDERABLES Final Result Performing Organization Address [facility] de Phone Number [address] [address] * Magnesium (12/23/2021 10:44 AM CDT) Magnesium 1.7 1.4 - 2.5 mg/dL MARY JANE Comment:Testing performed by : [address] [address] Blood 12/23/2021 10:4 4 AM CDT 12/23/2021 11:10 AM CDT us Alfonso Kelsey MD LAB BLOOD ORDERABLES Final Result MARY JANE [address] Department [place] [address] * Comprehensive metabolic panel (12/23/2021 10:44 AM CDT) Sodium 139 135 - 145 mmol/L MARY JANE Comment:Testing performed by : [address] [address] Potassium, pl 4.1 3.3 - 4.9 mmol/L MARY JANE Comment:Testing performed by : [address] [address] Chloride 104 97 - 110 mmol/L MARY JANE Comment:Testing performed by : [address] [address] CO2 27 22 - 32 mmol/L MARY JANE Comment:Testing performed by : [address] [address] Anion gap 8 2 - 15 mmol/L MARY JANE Comment:Testing performed by : [address] [address] BUN 14 8 - 25 mg/dL MARY JANE Comment:Testing performed by : [address] [address] Creatinine 0.60 0.60 - 1.10 mg/dL MARY JANE Comment:Testing performed by : [address] [address] Glucose 153 70 - 199 mg/dL MARY [...] was last revised 2017. Testing performed by: [address] [address] Calcium 9.3 8.5 - 10.3 mg/dL MARY JANE Comment:Testing performed by : [address] [address] Bilirubin, total 0.5 0.1 - 1.2 mg/dL MARY JANE Comment:Testing performed by : [address] [address] Protein, pl 7.6 6.5 - 8.5 g/dL MARY JANE Comment:Testing performed by : [address] [address] Albumin 3.7 3.5 - 5.0 g/dL MARY JANE Comment:Testing performed by : [address] [address] Alk phos 85 40 - 130 Units/L MARY JANE Comment:Testing performed by : [address] [address] ALT 15 7 - 45 Units/L MARY JANE Comment:Testing performed by : [address] [address] AST 19 10 - 45 Units/L MARY JANE Comment:Testing performed by : [address] [address] Blood 12/23/2021 10:4 4 AM CDT 12/23/2021 11:10 AM CDT us Alfonso Kelsey MD LAB BLOOD ORDERABLES Final Result MARY JANE [address] Department [place] [address] * (ABNORMAL) CBC with auto differential (12/23/2021 10:44 AM CDT) WBC 8.2 3.8 - 9.9 K/cumm MAYR JANE Comment:Testing performed by : [address] [place] [address] Hgb 11.8(L) 11.9 - 15.5 g/dL MARY JANE Comment:Testing performed by : [address], [address] Hct 37.0 35.6 - 45.5 % MARY JANE Comment:Testing performed by : [address], [address] Plt 291 150 - 400 K/cumm MARY JANE Comment:Testing performed by : [address], [address] MPV 10.0 9.1 - 12.3 fL MARY JANE Comment:Testing performed by : [address], [address] RBC 4.00 3.90 - 5.20 M/cumm MARY JANE Comment:Testing performed by : [address], [address] MCV 92.5 81.3 - 96.4 fL MARY JANE Comment:Testing performed by : [address], [address] MCH 29.5 27.1 - 33.3 pg MARY JANE Comment:Testing performed by : [address], [address] MCHC 31.9(L) 32.3 - 35.7 g/dL MARY JANE Comment:Testing performed by : [address], [address] RDW CV 13.7 11.1 - 14.9 % MARY JANE Comment:Testing performed by : [address], [address] RDW SD 46.5 35.7 - 48.1 fL MARY JANE Comment:Testing performed by : [address], [address] NRBC abs 0.00 0.00 - 0.01 K/cumm MARY JANE Comment:Testing performed by : [address], [address] Blood 12/23/2021 10:4 4 AM CDT 12/23/2021 11:10 AM CDT Alfonso Kelsey MD LAB BLOOD ORDERABLES Final Result Performing Organization Address City/[facility]/ZIP Co de Phone Number MARY JANE [address] [facility] [place] [address] * POCT glucose (12/23/2021 8:25 AM CDT) [facility] Signature Glucose, POC 134 70 - 199 mg/dL BCPUJA Comment:Testing performed by : [facility], [address] [place] [address]., [address] Blood 12/23/2021 8:25 AM CDT 12/23/2021 8:25 AM CDT Alfonso Kelsey MD LAB POCT ORDERABLES - NILESH CE Final Result Performing Organization Address [facility] Co de Phone Number MARY JANE [address] [facility] [place] [address] * CT Abdomen Pelvis W Contrast (12/23/2021 [...] Recent guidelines by the Fleischner Society (Radiology 070711,2017) divides patient into low vs. high risk [...] immunosuppression, or patients with known primary cancer. http://pubs.rsna.org/doi/pdf/10.1148/radiol.2767536957 LIVER: ?? Normal size. ??No identified cystic [...] Findings Committee. J Am Wang Radiol. 2017 Nov;14(8):0954-2325. THIS IS AN ELECTRONICALLY VERIFIED FINAL REPORT 12/23/2021 2:21 AM - Electronically signed by ??Pb Carvalho M.D. BB: SKIP D: ??12/23/2021 2:21 AM T: ??12/23/2021 2:21 AM Report ID: [id number] Reading Location: ??[id number] Procedure Note Pb Carvalho MD PhD - [...] Recent guidelines by the Fleischner Society (Radiology 015413,2017)divides patient into low vs. high risk (for [...] immunosuppression, or patients with known primary cancer. http://pubs.rsna.org/doi/pdf/10.1148/radiol.1624612945 LIVER: Normal size. No identified cystic or [...] Findings Committee. J Am Wang Radiol. 2017 Nov;14(8):2620-3560. THIS IS AN ELECTRONICALLY VERIFIED FINAL REPORT 12/23/2021 2:21 AM - Electronically signed by Pb Carvalho M.D. BB: SKIP Report ID: [id number] Reading Location: [place] [address] PROCEDURES Final Resul t * Blood culture Blood Peripheral (12/22/2021 11:55 PM CDT) Report Final Report: No growth MARY JANE PHAM Comment:Testing performed by : [facility], [address] [facility], [place]., [address] Blood (Peripheral) 12/22/2021 11:55 PM CDT 12/23/2021 [...] organism identification may be performed using the [employer] Gram-Positive Blood Culture Assay. This assay detects microbial DNA in positive blood culture broth via hybridization of target DNA to capture oligonucleotides on a microarray. This assay has been cleared by the [place] Food and Drug Administration and its performance characteristics have been verified by the [facility]. 5. ?For questions about this culture, contact the Microbiology Laboratory at [phone]. Interpretive data was last revised on 2019. [facility] LAB MICROBIOLOGY - GENERAL OR DERABLES Final Result MARY JANE PHAM [address] Department [place] [address] * Blood culture Blood Peripheral (12/22/2021 11:53 PM CDT) Report Final Report: No growth MARY JANE PHAM Comment:Testing performed by : [facility], [address] [facility] [place]., [address] Blood (Peripheral) 12/22/2021 11:53 PM CDT 12/23/2021 [...] organism identification may be performed using the [employer] Gram-Positive Blood Culture Assay. This assay detects microbial DNA in positive blood culture broth via hybridization of target DNA to capture oligonucleotides on a microarray. This assay has been cleared by the [place] Food and Drug Administration and its performance characteristics have been verified by the [facility]. 5. ?For questions about this culture, contact the Microbiology Laboratory at [phone]. Interpretive data was last revised on 2019. [facility] LAB MICROBIOLOGY - GENERAL OR DERABLES Final Result MARY JANE [address] Department [place] [address] * eGFR (12/22/2021 10:59 PM CDT) [facility] eGFR 96 mL/min/1. 73 m2 MRAY JANE PHAM Comment: Interpretive Data Reference Interval [...] was last reviewed 2021. Testing performed by: [address] [address] Blood 12/22/2021 10:5 9 PM CDT 12/22/2021 11:01 PM CDT us [facility] LAB BLOOD ORDERABLES Final Re sult MARY JANE [address] [place] [address] * (ABNORMAL) Comprehensive metabolic panel (12/22/2021 10:59 PM CDT) Sodium 140 135 - 145 mmol/L MARY JANE PHAM Comment:Testing performed by : [address] [address] Potassium, pl 4.3 3.3 - 4.9 mmol/L MARY JANE PHAM Comment:Testing performed by : [address] [address] Chloride 101 97 - 110 mmol/L MARY JANE PHAM Comment:Testing performed by : [address] [address] CO2 25 22 - 32 mmol/L MARY JANE Comment:Testing performed by : [address] [address] Anion gap 14 2 - 15 mmol/L MARY JANE Comment:Testing performed by : [address] [address] BUN 16 8 - 25 mg/dL [facility] Comment:Testing performed by : [address] [address] Creatinine 0.70 0.60 - 1.10 mg/dL MARY JANE Comment:Testing performed by : [address] [address] Glucose 146 70 - 199 mg/dL [facility] Comment: Interpretive Data Fasting glucose [...] was last revised 2017. Testing performed by: [address] [address] Calcium 10.6(H) 8.5 - 10.3 mg/dL [facility] Comment:Testing performed by : [address] [address] Bilirubin, total 0.4 0.1 - 1.2 mg/dL [facility] Comment:Testing performed by : [address] [address] Protein, pl 9.2(H) 6.5 - 8.5 g/dL [facility] Comment:Testing performed by : [address] [address] Albumin 4.3 3.5 - 5.0 g/dL [facility] Comment:Testing performed by : [address] [address] Alk phos 94 40 - 130 Units/L MARY JANE Comment:Testing performed by : [address] [address] ALT 17 7 - 45 Units/L MARY JANE Comment:Testing performed by : [facility], [address] [place] [address]., [address] AST 19 10 - 45 Units/L MARY JANE PHAM Comment:Testing performed by : [facility], [address] [place] [address]., [address] Blood 12/22/2021 10:5 9 PM CDT 12/22/2021 11:01 PM CDT us [facility] LAB BLOOD ORDERABLES Final Re sult MARY JANE PHAM [address] [place] [address] * (ABNORMAL) Urine culture Urine (12/22/2021 10:21 PM CDT) Report Final Report: Greater than or equal to 100,000 colonies/mL of Escherichia coli Greater than or equal to 100,000 colonies/mL of Proteus mirabilis Plus growth of clinically insignificant bacterial yesenia. (.) MARY JANE PHAM Comment:Testing performed by : [facility], [address] [place]., [address] Organism ESCHERICHIA COLI MARY JANE Organism PROTEUS MIRABILIS MARY JANE Organism PLUS GROWTH OF CLINICALLY INSIGNIFICANT YESENIA. MARY JANE PHAM Urine 12/22/2021 10:2 1 PM CDT 12/23/2021 1:46 AM CDT Narrative MARY JANE - 12/25/2021 10:37 AM CDT Urine culture reflexed based upon urinalysis results. Testing performed by [facility] ([phone]) Organism Antibiotic Method Susceptibility Escherichia coli Ampicillin [...] ORD ERABLES Final Result Performing Organization Address City/[facility]/ZIP Co de Phone Number [facility]ARY J[facility] [place] [address] * (ABNORMAL) Urinalysis, microscopic only (12/22/2021 10:21 PM CDT) WBC, ur 11-20(A) 0 - 5 /HPF MARY JANE Comment:Testing performed by : [address] [address] RBC, ur 3-5(A) 0 - 2 /HPF MARY JANE Comment:Testing performed by : [facility], [address] [place] [address]., [address] Mucous, ur Present(A) MARY JANE Comment:Testing performed by : [address] [address] Culture Reflex Comment Reflex to urine culture will be performed. MARY JANE Comment:Testing performed by : [address] [address] Urine 12/22/2021 10:2 1 PM CDT 12/22/2021 10:26 PM CDT Kirit Everett DO LAB URINE ORDERABLES Final Res ult Performing Organization Address City/[facility]/ZIP Co de Phone Number [place] [id number] [facility] [place], [place] [id number] * (ABNORMAL) Urinalysis reflex to microscopic and culture Urine (12/22/2021 10:21 PM CDT) Color, ur Yellow Yellow MARY JANE Comment:Testing performed by : [address], [place]., [address] Clarity, ur Clear Clear MARY JANE Comment:Testing performed by : [address], [place]., [address] Specific gravity, ur 1.020 1.003 - 1.030 MARY JANE Comment:Testing performed by : [address], [place]., [address] pH, urine 5.0 MARY JANE Comment:Testing performed by : [address] [address] Protein, ur ql Negative Negative MARY JANE Comment:Testing performed by : [address], [place]., [address] Glucose, ur ql Negative Negative MARY JANE Comment:Testing performed by : [address], [place]., [address] Ketones, ur Trace Negative MARY JANE Comment:Testing performed by : [address] [address] Bilirubin, ur Negative Negative MARY JANE Comment:Testing performed by : [address], [place]., [address] Blood, ur 2+(A) Negative MARY JANE Comment:Testing performed by : [address] [address] Urobilinogen, ur 0.2 <2.0 mg/dL MARY JANE Comment:Testing performed by : [address] [address] Nitrite, ur Positive(A) Negative MARY JANE Comment:Testing performed by : [address] [address] Leukocyte esterase, ur Trace(A) Negative MARY JANE Comment:Testing performed by : [address], [place]., [address] UA reflex comment Reflex to microscopic UA will be performed. MARY JANE Comment:Testing performed by : [address] [address] Urine 12/22/2021 10:2 1 PM CDT 12/22/2021 [...] for uric acid stone formation. Source: [employer]. Last revised 05-04-2017 us Kirit Everett DO LAB MICROBIOLOGY - GENERAL ORD ERABLES Final Result MARY JANE [address] [facility] [place] [address] * Differential, auto (12/22/2021 7:53 PM CDT) Neutrophil abs 6.0 1.7 - 6.5 K/cumm MARY JANE Comment:Testing performed by : [address] [address] Imm gran abs 0.0 0.0 - 0.1 K/cumm MARY JANE Comment:Testing performed by : [address] [address] Lymphocyte abs 2.9 0.8 - 3.3 K/cumm MARY JANE Comment:Testing performed by : [address] [address] Monocyte abs 0.8 0.2 - 0.8 K/cumm MARY JANE Comment:Testing performed by : [address] [address] Eosinophil abs 0.3 0.0 - 0.5 K/cumm MARY JANE Comment:Testing performed by : [address] [address] Basophil abs 0.1 0.0 - 0.1 K/cumm MARY JANE Comment:Testing performed by : [address] [address] Neutrophil pct 59.8 % CERNER Comment: Interpretive Data Percent cell count reference ranges are not reported, since discordance with absolute values may lead to misinterpretation of CBC data. Current Interpretive Data was last revised on 2017. Testing performed by: [address] [address] Imm gran pct 0.3 % [facility] Comment: Interpretive Data Percent cell count reference ranges are not reported, since discordance with absolute values may lead to misinterpretation of CBC data. Current Interpretive Data was last revised on 2017. Testing performed by: [address] [address] Lymphocyte pct 28.4 % [facility] Comment: Interpretive Data Percent cell count reference ranges are not reported, since discordance with absolute values may lead to misinterpretation of CBC data. Current Interpretive Data was last revised on 2017. Testing performed by: [address] [address] Monocyte pct 7.8 % [facility] Comment: Interpretive Data Percent cell count reference ranges are not reported, since discordance with absolute values may lead to misinterpretation of CBC data. Current Interpretive Data was last revised on 2017. Testing performed by: [address] [address] Eosinophil pct 3.2 % CERNER Comment: Interpretive Data Percent cell count reference ranges are not reported, since discordance with absolute values may lead to misinterpretation of CBC data. Current Interpretive Data was last revised on 2017. Testing performed by: [address] [address] Basophil pct 0.5 % CERNER Comment: Interpretive Data Percent cell count reference ranges are not reported, since discordance with absolute values may lead to misinterpretation of CBC data. Current Interpretive Data was last revised on 2017. Testing performed by: [address] [address] Blood 12/22/2021 7:53 PM CDT 12/22/2021 8:03 PM CDT Kirit Everett DO LAB BLOOD ORDERABLES Final Res ult [facility] [place] [address] * Influenza A/B, RSV, and COVID-19 PCR Nasopharyngeal (12/22/2021 7:53 PM CDT) COVID-19 RNA Negative Negative [facility]AM[facility] Comment:Testing performed by : [address] [address] Influenza A RNA Negative Negative [facility] Comment:Testing performed by : [address] [address] Influenza B RNA Negative Negative [facility] Comment:Testing performed by : [address] [address] RSV RNA Negative Negative [facility] Comment: Interpretive data: This test is performed using the [employer] Xpress CoV-2/Flu/RSV plus assay. This is a [...] Data last revised 2021. Testing performed by: [address] [address] Nasopharyngeal 12/22/2021 7: 53 PM CDT 12/22/2021 8:03 PM CDT Narrative MARY JANE - 12/22/2021 9:02 PM CDT Is the Patient experiencing symptoms consistent with COVID?->Yes Date of Symptom Onset->12/21/21 Reason for testing?->Symptomatic Kirit Everett DO LAB MICROBIOLOGY - GENERAL ORD ERABLES Final Result MARY JANE [address] [facility] [place] [address] * Sepsis Lactate w/ Reflex (12/22/2021 7:53 PM CDT) Pathologist [facility] Sepsis Lactate 1.5 0.7 - 2.0 mmol/L MARY JANE Comment:Testing performed by : [address] [address] Blood 12/22/2021 7:53 PM CDT 12/22/2021 8:03 PM CDT us Kirit Everett DO LAB BLOOD ORDERABLES Final Res ult MARY JANE [address] [facility] [place] [address] * (ABNORMAL) CBC with auto differential (12/22/2021 7:53 PM CDT) Pathologist [facility] WBC 10.0(H) 3.8 - 9.9 K/cumm MARY JANE Comment:Testing performed by : [address] [address] Hgb 13.6 11.9 - 15.5 g/dL MARY JANE Comment:Testing performed by : [address] [address] Hct 42.4 35.6 - 45.5 % MARY JANE Comment:Testing performed by : [address] [address] Plt 324 150 - 400 K/cumm MARY JANE Comment:Testing performed by : [address] [address] MPV 9.8 9.1 - 12.3 fL MARY JANE Comment:Testing performed by : [address] [address] RBC 4.64 3.90 - 5.20 M/cumm MARY JANE PHAM Comment:Testing performed by : [address] [address] MCV 91.4 81.3 - 96.4 fL MARY JANE Comment:Testing performed by : [address] [address] MCH 29.3 27.1 - 33.3 pg MARY JANE PHAM Comment:Testing performed by : [facility], [address] [place] [address]., [address] MCHC 32.1(L) 32.3 - 35.7 g/dL MARY JANE PHAM Comment:Testing performed by : [facility], [address] [place] [address]., [address] RDW CV 13.7 11.1 - 14.9 % MARY JANE PHAM Comment:Testing performed by : [address] [address] RDW SD 45.2 35.7 - 48.1 fL MARY JANE PHAM Comment:Testing performed by : [address] [address] NRBC abs 0.00 0.00 - 0.01 K/cumm MARY JANE PHAM Comment:Testing performed by : [facility], [address] [place] [address]., [address] Blood 12/22/2021 7:53 PM CDT 12/22/2021 8:03 PM CDT Kirit Everett DO LAB BLOOD ORDERABLES Final Res ult MARY JANE [facility] [address] [facility] [place] [address] documented in this encounter Visit [...] intra-catheter, As needed, line care, Starting on [facility] 12/23/21 at 0945, Flush volume based on [...] 12/23/2021 documented in this encounter Care Teams Ribbon Inker Relationship Specialty Start Date End Date Gerardo Hoffman MD 2 [facility] [address] [place] [address] PCP - General 10/09/17 Liu Jerez MD Consulting Physician Gastroenterology 07/28/17 [place] [address] [facility] [address] [place] [address] Consulting Physician Pulmonary Disease 08/03/17 Khris Arthur MD [address] [place] [address] [place], [place] [id number] Medical Oncologist/Computer Repair Engineer Medical Oncology 10/23/17 [place] [address] [facility] [address] [place] [address] Surgeon Orthopedic Surgery 10/23/17 [place] [address] [address] Consulting Physician Pain Management 10/23/17 [place] [address] [facility] [address] [place] [address] Referring Physician General Surgery 01/26/18 [place] [address] [facility] [address] [place] [address] Consulting Physician Neurology 01/26/18 documented as of this encounter
--- OUTSIDE RECORDS SUMMARY | 2024-04-26 09:19 | XMS_ITS | Encounter Summary ---
Author Organization [facility] [place] [facility] Address [address] [place] [address] Phone Care Team Providers Care Machine Maintenance Name Role Phone Liu Jerez MD Unavailable [phone] Albert Corbin MD Unavailable Justen Gale MD Primary Care Provider Khris Arthur MD Unavailable [phone] Ko Melendez MD Unavailable John Paul Moyer [...] 1 or 2 Site Khris Arthur MD [address] [facility] [address] [place] [address] Phone: tel: fax: [facility] (All Locations) Referral ID Status Reason Start Date Expiration Date Visits Re quested Visits Authorized [id number] Closed 09/07/2021 10/07/2022 1 1 Reason for Visit * Oncology (Routine) - Closed Specialty Diagnoses / Procedures Referred By Contac t Referred To Contact Oncology Diagnoses Malignant neoplasm of overlapping sites of left female breast, unspecified estrogen receptor status (HCC) Justen Gale MD [address] [place] [address] Phone: tel: fax: Khris Arthur MD Phone: tel: fax: Referral ID Status Reason Start Date Expiration Date V isits Requested Visits Authorized [id number] Closed Specialty Services Required 10/18/2019 04/23/2024 99 99 Encounter Details Date Type Department Care Team (Late st Contact Info) Description 09/07/2021 2:00 PM CDT Office Visit 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 3. Cytology on 07/21/2014 [...] Bone mineral density was performed on a [employer] Discovery Densitometer. ?? Based on machine cross-calibration [...] by the International Society of Clinical Densitometry. [id number] Khris Arthur MD IMG DXA PROCEDURES F inal Result documented in this encounter Visit Diagnoses Diagnosis Malignant neoplasm of upper-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, unspecified estrogen receptor status (HCC)- Primary Malignant neoplasm of upper-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, unspecified estrogen receptor status (HCC) Postmenopausal Asymptomatic postmenopausal status (age-related) (natural) Osteoporosis, unspecified osteoporosis type, unspecified pathological fracture presence FPC (current) use 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 inhibitors terminal worker (current) use of anticoagulants Long-term (current) use of anticoagulants documented in this encounter Historical Medications * This list may reflect changes made after this encounter. HYDROcodone-aceta minophen (NORCO) 10-325 mg per tablet Take 1 tablet by mouth every 6 (six) hours 08/20/2021 10/31/2023 added in this encounter Care Teams Machine Maintenance Relationship Specialty Start Date End Date Justen Gale MD [address] [address] PCP - General 10/09/17 Liu Jerez MD Consulting Physician Gastroenterology 07/28/17 [place] [address] [facility] [address] [place] [address] Consulting Physician Pulmonary Disease 08/03/17 [place] [address] [place] [address] [address] [place] [address] Medical Oncologist/Energy Specialist Medical Oncology 10/23/17 [place] [address] [facility] [address] [place] [address] Surgeon Orthopedic Surgery 10/23/17 [place] [address] [facility] [address] [place] [address] Consulting Physician Pain Management 10/23/17 [place] [address] [facility] [address] [place] [address] Referring Physician General Surgery 01/26/18 [place] [address] [facility] [address] [place] [address] Consulting Physician Neurology 01/26/18 documented as of this encounter
--- OUTSIDE RECORDS SUMMARY | 2024-04-26 09:19 | XMS_ITS | Encounter Summary ---
Author Organization [facility] Healthcare Address [address] [place] [address] Care Team Providers Care Day Care Supervisor Name Role Phone Liu Jerez MD Unavailable Albert Corbin MD Unavailable Justen Gale MD Primary Care Provider [phone] Khris Arthur MD Unavailable [phone] Ko Melendez MD Unavailable John Paul Moyer MD Unavailable Annel Rod MD Unavailable Anali MARSHALL MD, Carlos M. 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 blood glucose diagnostic ([employer] Trendsuch Ultra Test) strip ??? exemestane (AROMASIN) 25 [...] Psychiatric: Mood and Affect: Mood normal. Procedures [facility] Labs Reviewed URINALYSIS AND REFLEX TO MICROSCOPIC [...] tendency for uric acid stone formation. Source: [facility] [employer].Last revised 05-04-2017 URINALYSIS, MICROSCOPIC ONLY - Abnormal [...] last reviewed 2021. Testing performed by: [address] [address] Blood 10/25/2021 4:32 PM CDT 10/25/2021 4:36 PM CDT us Marin [facility] LAB BLOOD ORDERABLES Deann l Result Performing Organization Address City/State/[facility] Co de Phone Number MARY JANE [address] [facility] [place] [address] * (ABNORMAL) Differential, auto (10/25/2021 4:32 PM CDT) Neutrophil abs 7.8(H) 1.7 - 6.5 K/cumm MARY JANE PHAM Comment:Testing performed by : [address] [address] Imm gran abs 0.1 0.0 - 0.1 K/cumm MARY JANE PHAM Comment:Testing performed by : [address] [address] Lymphocyte abs 2.4 0.8 - 3.3 K/cumm CERNER Comment:Testing performed by : [address] [address] Monocyte abs 1.0(H) 0.2 - 0.8 K/cumm CERNER Comment:Testing performed by : [address], [place]., [address] Eosinophil abs 0.3 0.0 - 0.5 K/cumm [facility] Comment:Testing performed by : [address], [place]., [address] Basophil abs 0.0 0.0 - 0.1 K/cumm [facility] Comment:Testing performed by : [address] [address] Neutrophil pct 67.5 % [facility] Comment: Interpretive Data Percent cell count reference ranges are not reported, since discordance with absolute values may lead to misinterpretation of CBC data. Current Interpretive Data was last revised on 2017. Testing performed by: [address] [address] Imm gran pct 0.4 % CERNER Comment: Interpretive Data Percent cell count reference ranges are not reported, since discordance with absolute values may lead to misinterpretation of CBC data. Current Interpretive Data was last revised on 2017. Testing performed by: [address] [address] Lymphocyte pct 20.4 % [facility] Comment: Interpretive Data Percent cell count reference ranges are not reported, since discordance with absolute values may lead to misinterpretation of CBC data. Current Interpretive Data was last revised on 2017. Testing performed by: [address] [address] Monocyte pct 8.5 % CERNER Comment: Interpretive Data Percent cell count reference ranges are not reported, since discordance with absolute values may lead to misinterpretation of CBC data. Current Interpretive Data was last revised on 2017. Testing performed by: [address] [address] Eosinophil pct 2.9 % CERNER Comment: Interpretive Data Percent cell count reference ranges are not reported, since discordance with absolute values may lead to misinterpretation of CBC data. Current Interpretive Data was last revised on 2017. Testing performed by: [address] [address] Basophil pct 0.3 % MARY JANE PHAM Comment: Interpretive Data Percent cell count reference ranges are not reported, since discordance with absolute values may lead to misinterpretation of CBC data. Current Interpretive Data was last revised on 2017. Testing performed by: [address] [address] Blood 10/25/2021 4:32 PM CDT 10/25/2021 4:36 PM CDT us Marin [facility] LAB BLOOD ORDERABLES Deann l Result MARY JANE [facility] Department [place] [address] * Comprehensive metabolic panel (10/25/2021 4:32 PM CDT) Sodium 139 135 - 145 mmol/L MARY JANE Comment:Testing performed by : [address] [address] Potassium, pl 4.3 3.3 - 4.9 mmol/L MARY JANE Comment:Testing performed by : [address] [address] Chloride 103 97 - 110 mmol/L MARY JANE Comment:Testing performed by : [address] [address] CO2 28 22 - 32 mmol/L MARY JANE Comment:Testing performed by : [address] [address] Anion gap 8 2 - 15 mmol/L MARY JANE Comment:Testing performed by : [address] [address] BUN 18 8 - 25 mg/dL MARY JANE Comment:Testing performed by : [address] [address] Creatinine 0.80 0.60 - 1.10 mg/dL MARY JANE Comment:Testing performed by : [address] [address] Glucose 131 70 - 199 mg/dL MARY [...] last revised 2017. Testing performed by: [address] [address] Calcium 10.1 8.5 - 10.3 mg/dL [facility] Comment:Testing performed by : [address] [address] Bilirubin, total 0.4 0.1 - 1.2 mg/dL [facility] Comment:Testing performed by : [address] [address] Protein, pl 8.3 6.5 - 8.5 g/dL [facility] Comment:Testing performed by : [address] [address] Albumin 3.9 3.5 - 5.0 g/dL [facility] Comment:Testing performed by : [address] [address] Alk phos 89 40 - 130 Units/L [facility] Comment:Testing performed by : [address] [address] ALT 15 7 - 45 Units/L MARY JANE Comment:Testing performed by : [address] [address] AST 17 10 - 45 Units/L MARY JANE Comment:Testing performed by : [address] [address] Blood 10/25/2021 4:32 PM CDT 10/25/2021 4:36 PM CDT us Marin [facility] BLOOD ORDERABLES Deann colby Result MARY JANE [address] [facility] Department [place] [address] * (ABNORMAL) CBC with auto differential (10/25/2021 4:32 PM CDT) Pathologist [facility] WBC 11.6(H) 3.8 - 9.9 K/cumm MARY JANE Comment:Testing performed by : [address] [address] Hgb 12.6 11.9 - 15.5 g/dL MARY JANE Comment:Testing performed by : [address] [address] Hct 40.1 35.6 - 45.5 % MARY JANE Comment:Testing performed by : [address] [address] Plt 299 150 - 400 K/cumm MARY JANE Comment:Testing performed by : [address] [address] MPV 9.1 9.1 - 12.3 fL MARY JANE Comment:Testing performed by : [address] [address] RBC 4.38 3.90 - 5.20 M/cumm MARY JANE Comment:Testing performed by : [address] [address] MCV 91.6 81.3 - 96.4 fL MARY JANE Comment:Testing performed by : [address] [address] MCH 28.8 27.1 - 33.3 pg MARY JANE Comment:Testing performed by : [address] [address] MCHC 31.4(L) 32.3 - 35.7 g/dL MARY JANE Comment:Testing performed by : [address] [address] RDW CV 13.7 11.1 - 14.9 % MARY JANE PHAM Comment:Testing performed by : [address] [address] RDW SD 46.5 35.7 - 48.1 fL MARY JANE PHAM Comment:Testing performed by : [address] [address] NRBC abs 0.00 0.00 - 0.01 K/cumm MARY JANE PHAM Comment:Testing performed by : [address] [address] Blood 10/25/2021 4:32 PM CDT 10/25/2021 4:36 PM CDT us Marin [facility] BLOOD ORDERABLES Deann bowman Result MARY JANE [address] [facility] Department [place] [address] * (ABNORMAL) Urinalysis, microscopic only (10/25/2021 1:58 PM CDT) WBC, ur >50(A) 0 - 5 /HPF MARY JANE Comment:Testing performed by : [address] [address] RBC, ur 11-20(A) 0 - 2 /HPF MARY JANE Comment:Testing performed by : [address] [address] Epithelial cells, squamous, ur 11-20(A) 0 - 5 /HPF MARY JANE Comment: Suggestive of contamination. Consider recollection by clean catch. Testing performed by: [address] [address] Bacteria, ur Trace(A) MARY JANE Comment:Testing performed by : [address] [address] Mucous, ur Present(A) MARY JANE Comment:Testing performed by : [address] [address] Culture Reflex Comment Reflex to urine culture will be performed. MARY JANE Comment:Testing performed by : [address] [address] Urine 10/25/2021 1:58 PM CDT 10/25/2021 2:02 PM CDT Marin [facility] URINE ORDERABLES Deann l Result Performing Organization Address [facility] de Phone Number [address] [address] * Streptococcus Group A PCR (10/25/2021 1:58 PM CDT) Strep A DNA Not Detected Not Detected MARY JANE PHAM Comment: This test is performed using the [employer] Xpert Group A Streptococcal Assay. This is [...] by the performing laboratory. Testing performed by: [address] [address] Throat 10/25/2021 1:58 PM CDT 10/25/2021 2:12 PM CDT Marin [facility] LAB MICROBIOLOGY - GENERA L ORDERABLES Final Result Performing Organization Address [facility] Co de Phone Number [facility] [address] [place] [address] * (ABNORMAL) Urinalysis reflex to microscopic and culture Urine (10/25/2021 1:58 PM CDT) Color, ur Yellow Yellow MARY JANE PHAM Comment:Testing performed by : [address] [address] Clarity, ur Cloudy(A) Clear MARY JANE PHAM Comment:Testing performed by : [address] [address] Specific gravity, ur 1.017 1.003 - 1.030 MARY JANE Comment:Testing performed by : [address] [address] pH, urine 6.0 MARY JANE Comment:Testing performed by : [address], [place]., [address] Protein, ur ql Negative Negative MARY JANE Comment:Testing performed by : [address] [address] Glucose, ur ql Negative Negative MARY JANE Comment:Testing performed by : [address], [place]., [address] Ketones, ur Negative Negative MARY JANE Comment:Testing performed by : [address] [address] Bilirubin, ur Negative Negative MARY JANE Comment:Testing performed by : [address], [place]., [address] Blood, ur 2+(A) Negative MARY JANE Comment:Testing performed by : [address], [place]., [address] Urobilinogen, ur <2.0 <2.0 mg/dL MARY JANE Comment:Testing performed by : [address] [address] Nitrite, ur Negative Negative MARY JANE Comment:Testing performed by : [address] [address] Leukocyte esterase, ur 4+(A) Negative MARY JANE Comment:Testing performed by : [address] [address] UA reflex comment Reflex to microscopic UA will be performed. MARY JANE Comment:Testing performed by : [address] [address] Urine 10/25/2021 1:58 PM CDT 10/25/2021 2:02 [...] tendency for uric acid stone formation. Source: [facility] [employer]. Last revised 05-04-2017 Marin [facility] LAB MICROBIOLOGY - GENERA L ORDERABLES Final Result Performing Organization Address [facility]/ZIP Co de Phone Number MARY JANE PHAM [facility] Department [place] [address] * (ABNORMAL) Urine culture Urine, clean voided (10/25/2021 1:57 PM CDT) Report Final Report: Greater than or equal to 100,000 colonies/mL of Escherichia coli Plus growth of clinically insignificant bacterial yesenia. (.) MARY JANE PHAM Comment:Testing performed by : [facility], [address] [place] [address] Organism ESCHERICHIA COLI MARY JANE PHAM Organism PLUS GROWTH OF CLINICALLY INSIGNIFICANT YESENIA. MARY JANE PHAM Urine, clean voided 10/25/2021 1:57 PM CDT 10/25/2021 6:01 PM CDT Narrative MARY JANE PHAM - 10/28/2021 11:28 AM CDT Urine currently in lab. Testing performed by [facility] Laboratory ([phone]) Organism Antibiotic Method Susceptibility Escherichia coli Ampicillin [...] L ORDERABLES Final Result Performing Organization Address City/[facility]/ZIP Co de Phone Number MARY JANE PHAM [address] [facility] [place] [address] documented in this encounter Visit Diagnoses Diagnosis [...] 10/25/2021 documented in this encounter Care Teams Day Care Supervisor Relationship Specialty Start Date End Date Justen Gale MD 2 [facility] [address] [place] [address] PCP - General 10/09/17 Liu Jerez MD Consulting Physician Gastroenterology 07/28/17 [place] [address] [facility] [address] [place] [address] Consulting Physician Pulmonary Disease 08/03/17 Khris Arthur MD [address] [facility] [address] [place] [address] Medical Oncologist/Preschool Adviser Medical Oncology 10/23/17 [place] [address] [facility] [address] [place] [address] Surgeon Orthopedic Surgery 10/23/17 [place] [address] [facility] [address] [place] [address] Consulting Physician Pain Management 10/23/17 [place] [address] [facility] [address] [place] [address] Referring Physician General Surgery 01/26/18 [place] [address] [facility] [address] [place] [address] Consulting Physician Neurology 01/26/18 documented as of this encounter
--- OUTSIDE RECORDS SUMMARY | 2024-04-26 09:19 | XMS_ITS | Encounter Summary ---
Author Organization [facility] Healthcare Address [address] [place] [address] Care Team Providers Care Marketing Strategy Lead Name Role Phone Liu Jerez MD Unavailable [phone] Albert Corbin MD Unavailable Justen Gale MD Primary Care Provider Khris Arthur MD Unavailable [phone] Ko Melendez MD Unavailable [phone] John Paul Moyer MD Unavailable Annel Rod MD Unavailable Anali MARSHALL MD, Carlos M. 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 Gender Identity Not on file Sexual Orientation Not on file documented as of this encounter Plan of Treatment Not on file documented as of this encounter Visit Diagnoses Not on filedocumented in this encounter Care Teams Marketing Strategy Lead Relationship Specialty Start Date End Date Justen Gale MD 2 [facility] [address] [place] [address] PCP - General 10/09/17 Liu Jerez MD Consulting Physician Gastroenterology 07/28/17 [place] [address] [facility] [address] [place] [address] Consulting Physician Pulmonary Disease 08/03/17 Khris Arthur MD 49[address] [facility] [address] [place] [address] Medical Oncologist/Metal Refiner Medical Oncology 10/23/[address] [place] [address] [facility] [address] [place] [address] Surgeon Orthopedic Surgery 10/23/17 [place] [address] [facility] [address] [place] [address] Consulting Physician Pain Management 10/23/[address] [place] [address] [facility] [address] [place] [address] Referring Physician General Surgery 01/26/18 [place] [address] [facility] [address] [place] [address] Consulting Physician Neurology 01/26/18 documented as of this encounter
--- OUTSIDE RECORDS SUMMARY | 2024-04-26 09:19 | XMS_ITS | Encounter Summary ---
Author Organization [facility] Healthcare Address [address] [place] [address] Care Team Providers Care Marketing Account Manager Name Role Phone Liu Jerez MD Unavailable [phone] Albert Corbin MD Unavailable Justen Gale MD Primary Care Provider Khris Arthur MD Unavailable [phone] Ko Melendez MD Unavailable [phone] John Paul Moyer MD Unavailable Annel Rod MD Unavailable Anali MARSHALL MD, Carlos M. 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 Gender Identity Not on file Sexual Orientation Not on file documented as of this encounter Plan of Treatment Not on file documented as of this encounter Visit Diagnoses Not on filedocumented in this encounter Care Teams Marketing Account Manager Relationship Specialty Start Date End Date Justen Gale MD [address] [address] PCP - General 10/09/17 Liu Jerez MD Consulting Physician Gastroenterology 07/28/17 [place] [address] [facility] [[email or web address] [address] [place] [address] Consulting Physician Pulmonary Disease 08/03/17 Khris Arthur MD 49[address] [facility] [address] [place] [address] Medical Oncologist/Guidance Services Coordinator Medical Oncology 10/23/17 [place] [address] [facility] [[email or web address]] [address] [place] [address] Surgeon Orthopedic Surgery 10/23/17 [place] [address] [facility] [address] [place] [address] Consulting Physician Pain Management 10/23/17 [place] [address] [facility] [address] [place] [address] Referring Physician General Surgery 01/26/18 [place] [address] [facility] [address] [place] [address] Consulting Physician Neurology 01/26/18 documented as of this encounter
--- OUTSIDE RECORDS SUMMARY | 2024-04-26 09:19 | XMS_ITS | Encounter Summary ---
Author Organization [facility] Healthcare Address [address] [place] [address] Care Team Providers Care Sprayer Leather Name Role Phone Liu Jerez MD Unavailable Albert Corbin MD Unavailable Justen Gale MD Primary Care Provider Khris Arthur MD Unavailable [phone] Ko Melendez MD Unavailable John Paul Moyer MD Unavailable Annel Rod MD Unavailable Anali MARSHALL MD, Carlos M. 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 Gregg at [facility]. She notes that she has had a wound to her R butt ock where the battery pack is which has been draining pus over the last few weeks. She had been evaluated for this by neurosurgery at [facility] ED last month and was discharged with instructions to observeit for now as her wbc had been normal at that time. Over the past few days she's had increased drainage from this site. She also notes worsening pain for the past week. Patient History: Patient Active Problem List Diagnosis Date Noted ??? Chest pain 09/12/2021 ??? 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) 08/01/2021 ??? detention (current) use 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 inhibitors 10/17/2019 ??? Thyroid nodule 08/07/2018 ??? Dyslipidemia ??? History of breast cancer ??? Intractable pain ??? CVA (cerebral vascular accident) (CMS/HCC) ([facility]) 01/24/2018 ??? Anxiety and depression 11/12/2017 ??? Uncontrolled type 2 diabetes mellitus with hyperglycemia, with long-term current use of insulin([facility]) 11/06/2017 ??? Allergy to drug 11/06/2017 ??? Dysuria 10/26/2017 ??? Acute left-sided low back pain with left-sided sciatica 10/23/2017 ??? Type 2 diabetes mellitus with neurologic complication, without long-term current use of insulin(CMS/HCC) ([facility]) 10/23/2017 ??? Hypertension 10/23/2017 ??? Long-term current use of opiate analgesic 10/23/2017 ??? Lumbosacral spondylosis without myelopathy 10/23/2017 ??? Radiculopathy, lumbosacral region 10/23/2017 ??? Spinal stenosis of lumbar region without neurogenic claudication 10/23/2017 ??? 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 ??? Type 2 diabetes mellitus without complication (CMS/HCC) ([facility]) ??? Constipation ??? 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 Cancer of overlapping sites of left female breast (CMS/HCC) ([facility]) 10/13/2017 ??? Chronic anticoagulation ??? Restless leg syndrome ??? Chest pressure 08/01/2017 ??? Positive blood culture 08/01/2017 ??? Hyponatremia 08/01/2017 ??? Diet-controlled diabetes mellitus (CMS/HCC) ([facility]) 08/01/2017 ??? LUL (obstructive sleep apnea) 08/01/2017 [...] /HPF MARY JANE Comment:Testing performed by : [address] [address] RBC, ur 0-2 0 - 2 /HPF MARY JANE Comment:Testing performed by : [address] [address] Culture Reflex Comment Reflex conditions for urine culture (WBC >10) not met. MARY JANE Comment:Testing performed by : [address] [address] Urine 10/29/2021 8:40 PM CDT 10/29/2021 8:44 PM CDT us Melvin Sy MD LAB URINE ORDERABLES F inal Result MARY JANE [address] [facility] Department [place] [address] * (ABNORMAL) Urinalysis reflex to microscopic and culture Urine (10/29/2021 8:40 PM CDT) Color, ur Yellow Yellow MARY JANE Comment:Testing performed by : [address] [address] Clarity, ur Clear Clear MARY JANE Comment:Testing performed by : [address] [address] Specific gravity, ur <1.005 1.003 - 1.030 MARY JANE Comment:Testing performed by : [address] [address] pH, urine 6.0 MARY JANE Comment:Testing performed by : [address] [address] Protein, ur ql Negative Negative MARY JANE Comment:Testing performed by : [address] [address] Glucose, ur ql Negative Negative MARY JANE Comment:Testing performed by : [address] [address] Ketones, ur Negative Negative MARY JANE Comment:Testing performed by : [address] [address] Bilirubin, ur Negative Negative MARY JANE Comment:Testing performed by : [address] [address] Blood, ur Trace(A) Negative MARY JANE Comment:Testing performed by : [address] [address] Urobilinogen, ur 0.2 <2.0 mg/dL MARY JANE Comment:Testing performed by : [address] [address] Nitrite, ur Negative Negative MARY JANE Comment:Testing performed by : [address] [address] Leukocyte esterase, ur Negative Negative MARY JANE Comment:Testing performed by : [facility], [address] [place] [address]., [address] UA reflex comment Reflex to microscopic UA will be performed. MARY JANE Comment:Testing performed by : [facility], [address] [place] [address]., [address] Urine 10/29/2021 8:40 PM CDT 10/29/2021 8:44 [...] for uric acid stone formation. Source: [employer] [place]. Last revised 05-04-2017 us Melvin Sy MD LAB MICROBIOLOGY - GEN ERAL ORDERABLES Final Result MARY JANE [address] [facility] Department [place] [address] * CT Abdomen Pelvis W Contrast (10/29/2021 [...] PM T: ??10/29/2021 9:01 PM Report ID: [id number] Reading Location: ??[id number] Procedure Note Wilfrid Valdez MD - 10/29/2021 [...] Wilfrid Valdez M.D. MZ: FAUSTINA Report ID: [id number] Reading Location: [place] [address] us Jeremías Sheppard MD IMG CT PROCEDURES Final Resul t * ECG 12 lead (10/29/2021 7:44 PM CDT) Pathologist [facility] Ventricular Rate EKG/Min 95 BPM [facility] Atrial Rate 95 BPM [facility] AL-Interval (MSEC) 116 ms [facility] QRS-Interval (MSEC) 82 ms [facility] QT-Interval (MSEC) 354 ms [facility] QTc 444 ms [facility] P [place] 58 degrees [facility] R [place] -10 degrees [facility] T [place] 42 degrees [facility] Diagnosis Normal sinus rhythm Normal ECG When compared with ECG of 14-SEP-2021 09:04, Questionable change in QRS axis [facility] 10/29/2021 7:44 PM CDT 11/01/2021 1:54 PM CDT us Jeremías Sheppard MD ECG ORDERABLES Final Result [facility] * Influenza A/B, RSV, and COVID-19 PCR Nasopharyngeal (10/29/2021 7:36 PM CDT) [facility] COVID-19 RNA Negative Negative [facility] Comment:Testing performed by : [address] [address] Influenza A RNA Negative Negative [facility] Comment:Testing performed by : [address] [address] Influenza B RNA Negative Negative [facility] Comment:Testing performed by : [address] [address] RSV RNA Negative Negative [facility] Comment: Interpretive data: This test is performed using the [employer] Xpress CoV-2/Flu/RSV plus assay. This is a [...] Data last revised 2021. Testing performed by: [address] [address] Nasopharyngeal 10/29/2021 7: 36 PM CDT 10/29/2021 7:40 PM CDT Narrative MARY JANE - 10/29/2021 8:20 PM CDT Is the Patient experiencing symptoms consistent with COVID?->Yes Date of Symptom Onset->10/29/21 Reason for testing?->Symptomatic Jeremías Sheppard MD LAB MICROBIOLOGY - GENERAL OR DERABLES Final Result MARY JANE [address] [facility] Department [place] [address] * (ABNORMAL) Blood culture Blood (10/29/2021 7:00 PM CDT) Direct Specimen Exam Stain: Gram Positive Bacilli Time to culture positivity (aerobic media): 22.3 hours Notification of: Gram Positive Bacilli called to and read back by: Darcy Wahl MT ([phone]) on 10/30/2021 21:21:37 by: NBA Knight Comment:Testing performed by : [facility], [address] [place] [address]., [address] Report Final Report: Corynebacterium aurimucosum / minutissimum Single blood culture positive for this microorganism. ??Isolate is a possible contaminant. If a similar isolate is recovered from a second blood culture collected within 3 days of this culture, both will be evaluated and, if determined to be the same species, antimicrobial susceptibility testing will be performed. (.) MARY JANE Comment:Testing performed by : [facility], [address] [place] [address]., [address] Organism CORYNEBACTERIUM AURIMUCOSUM / MINUTISSIMUM MARY JANE Blood 10/29/2021 7:00 PM CDT 10/29/2021 10:19 PM CDT Narrative MARY JANE - 11/03/2021 2:38 PM CDT From a different site than #1. Called positive results of gram positive bacilli in the aerobic bottle to NURIS [place] /ED @2124 by [id number] 10/30/2021. please fax results to [facility] or phone [phone] 1. ?Blood cultures are incubated for 4 [...] organism identification may be performed using the Paytellerigene Gram-Positive Blood Culture Assay. This assay detects microbial DNA in positive blood culture broth via hybridization of target DNA to capture oligonucleotides on a microarray. This assay has been cleared by the [place] Food and Drug Administration and its performance characteristics have been verified by the [facility]. 5. ?For questions about this culture, contact the Microbiology Laboratory at [phone]. Interpretive data was last revised on 2019. Melvin Sy MD LAB MICROBIOLOGY - GEN ERAL ORDERABLES Final Result MARY JANE [address] [facility] Department [place] [address] * eGFR (10/29/2021 6:51 PM CDT) [facility] eGFR 96 mL/min/1. 73 m2 MARY JANE [...] was last reviewed 2021. Testing performed by: [address] [address] Blood 10/29/2021 6:51 PM CDT 10/29/2021 6:56 PM CDT us Melvin Sy MD LAB BLOOD ORDERABLES F inal Result MARY JANE [address] [facility] Department [place] [address] * (ABNORMAL) Differential, auto (10/29/2021 6:51 PM CDT) Neutrophil abs 18.9(H) 1.7 - 6.5 K/cumm MARY JANE Comment:Testing performed by : [address] [address] Imm gran abs 0.2(H) 0.0 - 0.1 K/cumm MARY JANE Comment:Testing performed by : [address] [address] Lymphocyte abs 1.5 0.8 - 3.3 K/cumm MARY JANE Comment:Testing performed by : [address] [address] Monocyte abs 1.2(H) 0.2 - 0.8 K/cumm [facility] Comment:Testing performed by : [address] [address] Eosinophil abs 0.1 0.0 - 0.5 K/cumm [facility] Comment:Testing performed by : [address] [address] Basophil abs 0.1 0.0 - 0.1 K/cumm [facility] Comment:Testing performed by : [address] [address] Neutrophil pct 86.2 % [facility] Comment: Interpretive Data Percent cell count reference ranges are not reported, since discordance with absolute values may lead to misinterpretation of CBC data. Current Interpretive Data was last revised on 2017. Testing performed by: [address] [address] Imm gran pct 0.8 % [facility] Comment: Interpretive Data Percent cell count reference ranges are not reported, since discordance with absolute values may lead to misinterpretation of CBC data. Current Interpretive Data was last revised on 2017. Testing performed by: [address] [address] Lymphocyte pct 6.9 % [facility] Comment: Interpretive Data Percent cell count reference ranges are not reported, since discordance with absolute values may lead to misinterpretation of CBC data. Current Interpretive Data was last revised on 2017. Testing performed by: [address] [address] Monocyte pct 5.6 % [facility] Comment: Interpretive Data Percent cell count reference ranges are not reported, since discordance with absolute values may lead to misinterpretation of CBC data. Current Interpretive Data was last revised on 2017. Testing performed by: [address] [address] Eosinophil pct 0.3 % [facility] Comment: Interpretive Data Percent cell count reference ranges are not reported, since discordance with absolute values may lead to misinterpretation of CBC data. Current Interpretive Data was last revised on 2017. Testing performed by: [facility], [address] [place] [address]., [address] Basophil pct 0.2 % MARY JANE PHAM Comment: Interpretive Data Percent cell count reference ranges are not reported, since discordance with absolute values may lead to misinterpretation of CBC data. Current Interpretive Data was last revised on 2017. Testing performed by: [facility], [address] [place] [address]., [address] Blood 10/29/2021 6:51 PM CDT 10/29/2021 6:55 PM CDT us Melvin Sy MD LAB BLOOD ORDERABLES F inal Result MARY JANE PHAM [address] [facility] Department [place] [address] * Blood culture Blood (10/29/2021 6:51 PM CDT) Report Final Report: No growth MARY JANE PHAM Comment:Testing performed by : [facility], [address] [facility], [place]., [address] Blood 10/29/2021 6:51 PM CDT 10/29/2021 10:19 [...] organism identification may be performed using the Paytellerigene Gram-Positive Blood Culture Assay. This assay detects microbial DNA in positive blood culture broth via hybridization of target DNA to capture oligonucleotides on a microarray. This assay has been cleared by the [place] Food and Drug Administration and its performance characteristics have been verified by the [facility]. 5. ?For questions about this culture, contact the Microbiology Laboratory at [phone]. Interpretive data was last revised on 2019. Melvin Sy MD LAB MICROBIOLOGY - GEN ERAL ORDERABLES Final Result Performing Organization Address City/[facility]/ZIP Co de Phone Number MARY JANE [address] [place] [address] * Sepsis Lactate w/ Reflex (10/29/2021 6:51 PM CDT) Pathologist [facility] Sepsis Lactate 1.8 0.7 - 2.0 mmol/L MARY JANE Comment:Testing performed by : [address] [address] Blood 10/29/2021 6:51 PM CDT 10/29/2021 6:56 PM CDT Melvin Sy MD LAB BLOOD ORDERABLES F inal Result Performing Organization Address [facility] Co de Phone Number MARY JANE [address] [address] * (ABNORMAL) Comprehensive metabolic panel (10/29/2021 6:51 PM CDT) Pathologist [facility] Sodium 131(L) 135 - 145 mmol/L MARY JANE Comment:Testing performed by : [address] [address] Potassium, pl 4.2 3.3 - 4.9 mmol/L MARY JANE Comment:Testing performed by : [address] [address] Chloride 96(L) 97 - 110 mmol/L MARY JANE Comment:Testing performed by : [address] [place]., [address] CO2 24 22 - 32 mmol/L [facility] Comment:Testing performed by : [address] [address] Anion gap 11 2 - 15 mmol/L MARY JANE Comment:Testing performed by : [address] [address] BUN 17 8 - 25 mg/dL MARY JANE Comment:Testing performed by : [address] [address] Creatinine 0.70 0.60 - 1.10 mg/dL [facility] Comment:Testing performed by : [address], [place]., [address] Glucose 294(H) 70 - 199 mg/dL [facility] Comment: Interpretive Data Fasting glucose >/= 126 [...] was last revised 2017. Testing performed by: [address] [address] Calcium 9.9 8.5 - 10.3 mg/dL MARY JANE Comment:Testing performed by : [address] [address] Bilirubin, total 1.0 0.1 - 1.2 mg/dL [facility] Comment:Testing performed by : [address] [address] Protein, pl 8.4 6.5 - 8.5 g/dL MARY JANE Comment:Testing performed by : [address] [address] Albumin 3.9 3.5 - 5.0 g/dL MARY JANE Comment:Testing performed by : [address] [address] Alk phos 94 40 - 130 Units/L MARY JANE PHAM Comment:Testing performed by : [address] [address] ALT 15 7 - 45 Units/L MARY JANE [facility]AM Comment:Testing performed by : [address] [address] AST 13 10 - 45 Units/L MARY JANE [facility]AM Comment:Testing performed by : [address] [address] Blood 10/29/2021 6:51 PM CDT 10/29/2021 6:56 PM CDT us Melvin Sy MD LAB BLOOD ORDERABLES F inal Result MARY JANE [facility] Department [place] [address] * (ABNORMAL) CBC with auto differential (10/29/2021 6:51 PM CDT) WBC 21.9(H) 3.8 - 9.9 K/cumm MARY JANE PHAM Comment:Testing performed by : [address] [address] Hgb 13.8 11.9 - 15.5 g/dL MARY JANE [facility]AM Comment:Testing performed by : [address] [address] Hct 43.2 35.6 - 45.5 % MARY JANE PHAM Comment:Testing performed by : [address] [address] Plt 321 150 - 400 K/cumm MARY JANE PHAM Comment:Testing performed by : [address] [address] MPV 9.6 9.1 - 12.3 fL MARY JANE PHAM Comment:Testing performed by : [address] [address] RBC 4.79 3.90 - 5.20 M/cumm MARY JANE PHAM Comment:Testing performed by : [address] [address] MCV 90.2 81.3 - 96.4 fL MARY JANE PHAM Comment:Testing performed by : [address] [address] MCH 28.8 27.1 - 33.3 pg MARY JANE PHAM Comment:Testing performed by : [address] [address] MCHC 31.9(L) 32.3 - 35.7 g/dL MARY JANE PHAM Comment:Testing performed by : [address], [address] RDW CV 13.7 11.1 - 14.9 % MARY JANE PHAM Comment:Testing performed by : [address], [address] RDW SD 45.4 35.7 - 48.1 fL MARY JANE Comment:Testing performed by : [address] [address] NRBC abs 0.00 0.00 - 0.01 K/cumm MARY JANE Comment:Testing performed by : [address], [address] Blood 10/29/2021 6:51 PM CDT 10/29/2021 6:55 PM CDT Melvin Sy MD LAB BLOOD ORDERABLES F inal Result [facility] [address] [facility] Department [place] [address] documented in this encounter Visit [...] as of this encounter Care Teams Sprayer Leather Relationship Specialty Start Date End Date Justen Gale MD 2 [facility] [address] [place] [address] PCP - General 10/09/17 Liu Jerez MD Consulting Physician Gastroenterology 07/28/17 [place] [address] [facility] [address] [place] [address] Consulting Physician Pulmonary Disease 08/03/17 [place] [address] [place] [address] [address] [place] [address] Medical Oncologist/Food Equipment Service Technician Medical Oncology 10/23/17 [place] [address] [address] Surgeon Orthopedic Surgery 10/23/17 [place] [address] [address] Consulting Physician Pain Management 10/23/17 [place] [address] [address] [facility] [address] [place] [address] Referring Physician General Surgery 01/26/18 [place] [address] [address] [facility] [address] [place] [address] Consulting Physician Neurology 01/26/18 documented as of this encounter
--- OUTSIDE RECORDS SUMMARY | 2024-04-26 09:19 | XMS_ITS | Encounter Summary ---
Author Organization [facility] Address [address] [place] [address] Phone Care Team Providers Care Studio Manager Name Role Phone Liu Jerez MD Unavailable Albert Corbin MD Unavailable Justen Gale MD Primary Care Provider Khris Arthur MD Unavailable [phone] Ko Melendez MD Unavailable John Paul Moyer MD Unavailable [phone] Annel Rod MD Unavailable Anali MARSHALL MD, Carlos M. Unavailable [phone] Reason for Visit * Oncology (Routine) - Closed Specialty Diagnoses / Procedures Referred By Contac t Referred To Contact Oncology Diagnoses Malignant neoplasm of overlapping sites of left female breast, unspecified estrogen receptor status (HCC) Procedures ONCBCN ARM DRAW APPT ONC LAB ONLY Khris Arthur MD [address] [facility] [address] [place] [address] Phone: tel: fax: Khris Arthur MD [address] [facility] [address] [place] [address] Phone: tel: fax: Referral ID Status Reason Start Date Expiration Date V isits Requested Visits Authorized [id number] Closed Specialty Services Required 07/23/2020 04/23/2024 99 [phone] Encounter Details Date Type Department Care Team (Late st Contact Info) Description 09/07/2021 1:00 PM CDT Lab [facility] [address] [facility] 7th [place] [address] [place] [id number] Social History Tobacco Use Types Packs/Day Years [...] file 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 Gender Identity Not on file Sexual Orientation Not on file documented as of this encounter Plan of Treatment Not on file documented as of this encounter Visit Diagnoses Not on filedocumented in this encounter Care Teams Studio Manager Relationship Specialty Start Date End Date Justen Gale MD [address] [place] [address] PCP - General 10/09/17 Liu Jerez MD Consulting Physician Gastroenterology 07/28/17 [place] [address] [address] [facility] [address] [place] [address] Consulting Physician Pulmonary Disease 08/03/17 Khris Arthur MD [address] [facility] [address] [place] [address] Medical Oncologist/Software Development Engineer Medical Oncology 10/23/17 [place] [address] [address] [facility] [address] [place] [address] Surgeon Orthopedic Surgery 10/23/17 [place] [address] [address] [facility] [address] [place] [address] Consulting Physician Pain Management 10/23/17 [place] [address] [facility] [address] [place] [address] Referring Physician General Surgery 01/26/18 [place] [address] [facility] [facility] [address] [place] [address] Consulting Physician Neurology 01/26/18 documented as of this encounter
--- OUTSIDE RECORDS SUMMARY | 2024-04-26 09:19 | XMS_ITS | Encounter Summary ---
Author Organization [facility] Healthcare Address [address] [place] [address] Care Team Providers Care Plant Controls Specialist Name Role Phone Liu Jerez MD Unavailable Albert Corbin MD Unavailable Justen Gale MD Primary Care Provider [phone] Khris Arthur MD Unavailable [phone] Ko Melendez MD Unavailable John Paul Moyer MD Unavailable Annel Rod MD Unavailable Anali MARSHALL MD, Carlos M. 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 Testing performed by: [facility], [address] [place] [phone] Blood 09/07/2021 1:18 PM CDT 09/07/2021 1:20 PM CDT us Khris Arthur MD LAB BLOOD ORDERABLES Final Result MARY JANE ANGELES [facility] [place] [address] * Comprehensive metabolic panel (09/07/2021 1:18 PM CDT) Sodium 135 135 - 145 mmol/L MARY JANE ANGELES Comment:Testing performed by : [facility], [address] [place] [phone] Potassium, pl 4.9 3.3 - 4.9 mmol/L MARY JANE ANGELES Comment:Testing performed by : [facility], [address] [place] [phone] Chloride 99 97 - 110 mmol/L MARY JANE ANGELES Comment:Testing performed by : [address] [address] CO2 30 22 - 32 mmol/L MARY JANE ANGELES Comment:Testing performed by : [facility], [address] [place] [phone] Anion gap 6 2 - 15 mmol/L MARY JANE ANGELES Comment:Testing performed by : [facility], [address] [place] [phone] BUN 18 8 - 25 mg/dL MARY JANE ANGELES Comment:Testing performed by : [address] [address] Creatinine 0.82 0.60 - 1.10 mg/dL MARY JANE ANGELES Comment:Testing performed by : [facility] [address] [address] Glucose 158 70 - 199 mg/dL CERNER [...] 2017. Testing performed by: [facility], [address] [place] [phone] Calcium 9.9 8.5 - 10.3 mg/dL CERNER BJ Comment:Testing performed by : [place] [address] Bilirubin, total 0.8 0.1 - 1.2 mg/dL CERNER BJ Comment:Testing performed by : [address] [address] Protein, pl 7.9 6.5 - 8.5 g/dL CERNER BJ Comment:Testing performed by : [address] [address] Albumin 4.1 3.5 - 5.0 g/dL CERNER BJ Comment:Testing performed by : [address] [address] Alk phos 87 40 - 130 Units/L CERNER BJ Comment:Testing performed by : [address] [phone] ALT 16 7 - 45 Units/L CERNER BJ Comment:Testing performed by : [address] [address] AST 15 10 - 45 Units/L CERNER BJ Comment:Testing performed by : [address] [address] Blood 09/07/2021 1:18 PM CDT 09/07/2021 1:20 PM CDT Khris Arthur MD LAB BLOOD ORDERABLES Final Result MARY JANE ANGELES [facility] [place] [address] documented in this encounter Visit Diagnoses Diagnosis Malignant neoplasm of upper-inner quadrant of left breast in female, estrogen receptor positive (HCC) documented in this encounter Care Teams Plant Controls Specialist Relationship Specialty Start Date End Date Justen Gale MD 2 [facility] [address] [place] [address] PCP - General 10/09/17 Liu Jerez MD Consulting Physician Gastroenterology 07/28/17 [place] [address] [facility] [address] [place] [address] Consulting Physician Pulmonary Disease 08/03/17 Khris Arthur MD 49[address] [facility] [address] [place] [address] Medical Oncologist/Machine Engineer Medical Oncology 10/23/17 [place] [address] [facility] [address] [place] [address] Surgeon Orthopedic Surgery 10/23/17 [place] [address] [facility] [address] [place] [address] Consulting Physician Pain Management 10/23/17 [place] [address] [facility] [address] [place] [address] Referring Physician General Surgery 01/26/18 [place] [address] [facility] [address] [place] [address] Consulting Physician Neurology 01/26/18 documented as of this encounter
--- OUTSIDE RECORDS SUMMARY | 2024-04-26 09:19 | XMS_ITS | Encounter Summary ---
Author Organization [facility] Healthcare Address [address] [place] [address] Care Team Providers Care Fill Manager Name Role Phone Liu Jerez MD Unavailable Albert Corbin MD Unavailable Justen Gale MD Primary Care Provider [phone] Khris Arthur MD Unavailable [phone] Ko Melendez MD Unavailable oJhn Paul Moyer MD Unavailable [phone] Annel Rod MD Unavailable Anali MARSHALL MD, Carlos M. 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 Source: [facility] [employer].Last revised 05-04-2017 CBC WITH AUTO DIFFERENTIAL - [...] to cephalosporins. Reanna spoke with Infectious Disease [facility] - recommends a dose of IV ertapenem [...] PA This examination was transcribed using the [employer] voice recognition system without human transportation project manager. In an effort to expedite patient [...] PM T: ??10/15/2021 4:24 PM Report ID: [id number] Reading Location: [id number] Procedure Note Cleo Garza MD - 10/15/2021 [...] Cleo Garza M.D. BG: BG Report ID: [id number] Reading Location: [id number] us Rosa MCKEON IMG CT PROCEDURES Final Result * (ABNORMAL) Streptococcus Group A PCR (10/15/2021 3:48 PM CDT) Strep A DNA Detected( A) Not Detected MARY JANE PHAM Comment: This test is performed using the [employer] Xpert Group A Streptococcal Assay. This is [...] by the performing laboratory. Testing performed by: [address] [address] Throat 10/15/2021 3:48 PM CDT 10/15/2021 3:51 PM CDT us Rosa MCKEON LAB MICROBIOLOGY - [facility]AL [facility] Final Result MARY JANE [address] [facility] Department [place] [address] * Influenza A/B, RSV, and COVID-19 PCR Nasopharyngeal (10/15/2021 3:48 PM CDT) Pathologist [facility] COVID-19 RNA Negative Negative MARY JANE Comment:Testing performed by : [address] [address] Influenza A RNA Negative Negative MARY JANE Comment:Testing performed by : [address] [address] Influenza B RNA Negative Negative MARY JANE Comment:Testing performed by : [address] [address] RSV RNA Negative Negative MARY JANE Comment: Interpretive data: This test is performed using the [employer] Xpert Xpress CoV-2/Flu/RSV plus assay. This is [...] Data last revised 2021. Testing performed by: [facility], [address] [place] [address]., [address] Nasopharyngeal 10/15/2021 3: 48 PM CDT 10/15/2021 3:51 PM CDT Narrative MARY JANE - 10/15/2021 4:32 PM CDT Is the Patient experiencing symptoms consistent with COVID?->Yes Date of Symptom Onset->10/13/21 Reason for testing?->Symptomatic Rosa MCKEON LAB MICROBIOLOGY - GENERAL ANGEL SPEARS Final Result MARY JANE [facility] Department [place] [address] * (ABNORMAL) Urine culture Urine (10/15/2021 2:19 PM CDT) Report Final Report: Greater than or equal to 100,000 colonies/mL of Escherichia coli (.) MARY JANE Comment:Testing performed by : [facility], [address] [facility] [place]., [address] Organism ESCHERICHIA COLI MARY JANE Urine 10/15/2021 2:19 PM CDT 10/15/2021 7:36 PM CDT Narrative MARY JANE - 10/17/2021 11:03 AM CDT Urine culture reflexed based upon urinalysis results. Testing performed by [facility] Microbiology Laboratory ([phone]) Organism Antibiotic Method Susceptibility Escherichia coli Ampicillin [...] ORDER CHAPARRO Final Result MARY JANE PHAM [address] [facility] Department [place] [address] * eGFR (10/15/2021 2:19 PM CDT) eGFR [...] was last reviewed 2021. Testing performed by: [facility], [address] [place] [address]., [address] Blood 10/15/2021 2:19 PM CDT 10/15/2021 2:22 PM CDT Blaze Armenta DAY CARE TEACHER LAB BLOOD ORDERABLES Final Resul t Performing Organization Address [facility] Co de Phone Number MARY JANE [address] [facility] [place] [address] * (ABNORMAL) Urinalysis, microscopic only (10/15/2021 2:19 PM CDT) WBC, ur >50(A) 0 - 5 /HPF MARY JANE Comment:Testing performed by : [address] [address] RBC, ur 11-20(A) 0 - 2 /HPF MARY JANE Comment:Testing performed by : [address] [address] Epithelial cells, squamous, ur 1-5 0 - 5 /HPF MARY JANE Comment:Testing performed by : [address] [address] Bacteria, ur 1+(A) MARY JANE Comment:Testing performed by : [address] [address] Mucous, ur Present(A) MARY JANE Comment:Testing performed by : [address] [address] Hyaline casts, ur 1-5 0 - 10 /LPF MARY JANE Comment:Testing performed by : [address] [address] Culture Reflex Comment Reflex to urine culture will be performed. MARY JANE Comment:Testing performed by : [address] [address] Urine 10/15/2021 2:19 PM CDT 10/15/2021 2:28 PM CDT Blaze Armenta DAY CARE TEACHER LAB URINE ORDERABLES Final Resul t Performing Organization Address City/[facility]/ZIP Co de Phone Number MARY JANE [address] [facility] [place] [address] * Differential, auto (10/15/2021 2:19 PM CDT) Neutrophil abs 6.5 1.7 - 6.5 K/cumm MARY JANE Comment:Testing performed by : [address] [address] Imm gran abs 0.0 0.0 - 0.1 K/cumm MARY JANE Comment:Testing performed by : [address] [address] Lymphocyte abs 2.7 0.8 - 3.3 K/cumm MARY JANE Comment:Testing performed by : [address] [address] Monocyte abs 0.8 0.2 - 0.8 K/cumm MARY JANE Comment:Testing performed by : [address] [address] Eosinophil abs 0.4 0.0 - 0.5 K/cumm MARY JANE Comment:Testing performed by : [address] [address] Basophil abs 0.1 0.0 - 0.1 K/cumm [facility]PUJA Comment:Testing performed by : [address] [address] Neutrophil pct 62.2 % [facility] Comment: Interpretive Data Percent cell count reference ranges are not reported, since discordance with absolute values may lead to misinterpretation of CBC data. Current Interpretive Data was last revised on 2017. Testing performed by: [address] [address] Imm gran pct 0.4 % [facility] Comment: Interpretive Data Percent cell count reference ranges are not reported, since discordance with absolute values may lead to misinterpretation of CBC data. Current Interpretive Data was last revised on 2017. Testing performed by: [address] [address] Lymphocyte pct 25.6 % CERNER Comment: Interpretive Data Percent cell count reference ranges are not reported, since discordance with absolute values may lead to misinterpretation of CBC data. Current Interpretive Data was last revised on 2017. Testing performed by: [address] [address] Monocyte pct 7.4 % MARY JANE Comment: Interpretive Data Percent cell count reference ranges are not reported, since discordance with absolute values may lead to misinterpretation of CBC data. Current Interpretive Data was last revised on 2017. Testing performed by: [address] [address] Eosinophil pct 3.9 % MARY JANE Comment: Interpretive Data Percent cell count reference ranges are not reported, since discordance with absolute values may lead to misinterpretation of CBC data. Current Interpretive Data was last revised on 2017. Testing performed by: [address] [address] Basophil pct 0.5 % MARY JANE Comment: Interpretive Data Percent cell count reference ranges are not reported, since discordance with absolute values may lead to misinterpretation of CBC data. Current Interpretive Data was last revised on 2017. Testing performed by: [address] [address] Blood 10/15/2021 2:19 PM CDT 10/15/2021 2:22 PM CDT us Blaze Armenta NP LAB BLOOD ORDERABLES Final Resul t [facility] [address] [facility] Department of Laboratories [place], [place] [id number] * (ABNORMAL) Urinalysis reflex to microscopic and culture Urine (10/15/2021 2:19 PM CDT) Color, ur Yellow Yellow MARY JANE Comment:Testing performed by : [address] [address] Clarity, ur Cloudy(A) Clear MARY JANE PHAM Comment:Testing performed by : [address] [address] Specific gravity, ur 1.019 1.003 - 1.030 MARY JANE PHAM Comment:Testing performed by : [address] [address] pH, urine 5.0 MARY JANE Comment:Testing performed by : [facility], [address] [place] [address], [place]., [address] Protein, ur ql Negative Negative MARY JANE Comment:Testing performed by : [facility], [address] [place] [address], [place]., [address] Glucose, ur ql Negative Negative MARY JANE Comment:Testing performed by : [address], [place]., [address] Ketones, ur Negative Negative MARY JANE Comment:Testing performed by : [address], [place]., [address] Bilirubin, ur Negative Negative MARY JANE Comment:Testing performed by : [address], [place]., [address] Blood, ur 1+(A) Negative MARY JANE Comment:Testing performed by : [address], [place]., [address] Urobilinogen, ur <2.0 <2.0 mg/dL MARY JANE Comment:Testing performed by : [address], [place]., [address] Nitrite, ur Negative Negative MARY JANE Comment:Testing performed by : [address], [place]., [address] Leukocyte esterase, ur 3+(A) Negative MARY JANE Comment:Testing performed by : [address], [place]., [address] UA reflex comment Reflex to microscopic UA will be performed. MARY JANE Comment:Testing performed by : [address] [address] Urine 10/15/2021 2:19 PM CDT 10/15/2021 2:28 [...] for uric acid stone formation. Source: [employer]. Last revised 05-04-2017 Blaze rAmenta NP LAB MICROBIOLOGY - GENERAL ORDER CHAPARRO Final Result Performing Organization Address [facility] Co de Phone Number [address] [address] * Lipase (10/15/2021 2:19 PM CDT) Lipase 20 10 - 99 Units/L MARY JANE PHAM Comment:Testing performed by : [address] [address] Blood 10/15/2021 2:19 PM CDT 10/15/2021 2:22 PM CDT Blaze Armenta LAB BLOOD ORDERABLES Final Resul t Performing Organization Address [facility] de Phone Number [address] [place] [address] * Sepsis Lactate w/ Reflex (10/15/2021 2:19 PM CDT) Pathologist [facility] Sepsis Lactate 1.9 0.7 - 2.0 mmol/L MARY JANE Comment:Testing performed by : [address] [address] Blood 10/15/2021 2:19 PM CDT 10/15/2021 2:22 PM CDT Blaze Armenta LAB BLOOD ORDERABLES Final Resul t Performing Organization Address [facility] de Phone Number [address] [address] * (ABNORMAL) Comprehensive metabolic panel (10/15/2021 2:19 PM CDT) Sodium 134(L) 135 - 145 mmol/L MARY JANE PHAM Comment:Testing performed by : [address] [address] Potassium, pl 4.6 3.3 - 4.9 mmol/L MARY JANE PHAM Comment:Testing performed by : [address] [address] Chloride 99 97 - 110 mmol/L MARY JANE Comment:Testing performed by : [address], [place]., [address] CO2 25 22 - 32 mmol/L MARY JANE Comment:Testing performed by : [address], [place]., [address] Anion gap 10 2 - 15 mmol/L MARY JANE Comment:Testing performed by : [address] [address] BUN 15 8 - 25 mg/dL [facility] Comment:Testing performed by : [address], [place]., [address] Creatinine 1.00 0.60 - 1.10 mg/dL MARY JANE Comment:Testing performed by : [address], [place]., [address] Glucose 172 70 - 199 mg/dL [facility] Comment: Interpretive Data Fasting glucose [...] was last revised 2017. Testing performed by: [address] [address] Calcium 9.9 8.5 - 10.3 mg/dL [facility] Comment:Testing performed by : [address] [address] Bilirubin, total 0.3 0.1 - 1.2 mg/dL AMRY JANE Comment:Testing performed by : [address] [address] Protein, pl 8.4 6.5 - 8.5 g/dL MARY JANE Comment:Testing performed by : [address] [address] Albumin 3.9 3.5 - 5.0 g/dL MARY JANE PHAM Comment:Testing performed by : [address] [address] Alk phos 87 40 - 130 Units/L MARY JANE PHAM Comment:Testing performed by : [address] [address] ALT 21 7 - 45 Units/L MARY JANE PHAM Comment:Testing performed by : [address] [address] AST 18 10 - 45 Units/L MARY JANE PHAM Comment:Testing performed by : [address] [address] Blood 10/15/2021 2:19 PM CDT 10/15/2021 2:22 PM CDT us Blaze Armenta NP LAB BLOOD ORDERABLES Final Resul t MARY JANE [facility] Department [place] [address] * (ABNORMAL) CBC with auto differential (10/15/2021 2:19 PM CDT) WBC 10.5(H) 3.8 - 9.9 K/cumm MARY JANE PHAM Comment:Testing performed by : [address] [address] Hgb 13.0 11.9 - 15.5 g/dL MARY JANE PHAM Comment:Testing performed by : [address] [address] Hct 41.0 35.6 - 45.5 % MARY JANE PHAM Comment:Testing performed by : [address] [address] Plt 311 150 - 400 K/cumm MARY JANE PHAM Comment:Testing performed by : [address] [address] MPV 9.4 9.1 - 12.3 fL MARY JANE PHAM Comment:Testing performed by : [address] [address] RBC 4.43 3.90 - 5.20 M/cumm CERNER MH Comment:Testing performed by : [facility], [address] [place] [address]., [address] MCV 92.6 81.3 - 96.4 fL MARY JANE Comment:Testing performed by : [address] [address] MCH 29.3 27.1 - 33.3 pg MARY JANE PHAM Comment:Testing performed by : [address] [address] MCHC 31.7(L) 32.3 - 35.7 g/dL MARY JANE Comment:Testing performed by : [address] [address] RDW CV 13.7 11.1 - 14.9 % MARY JANE Comment:Testing performed by : [address] [address] RDW SD 47.2 35.7 - 48.1 fL MARY JANE Comment:Testing performed by : [address] [address] NRBC abs 0.00 0.00 - 0.01 K/cumm MARY JANE Comment:Testing performed by : [address] [address] Blood 10/15/2021 2:19 PM CDT 10/15/2021 2:22 PM CDT us Blaze Armenta NP LAB BLOOD ORDERABLES Final Resul t MARY JANE [address] [facility] Department [place] [address] documented in this encounter Visit Diagnoses Diagnosis [...] documented as of this encounter Care Teams Fill Manager Relationship Specialty Start Date End Date Justen Gale MD [address] [address] PCP - General 10/09/17 Liu Jerez MD Consulting Physician Gastroenterology 07/28/17 [place] [address] [facility] [address] [place] [address] Consulting Physician Pulmonary Disease 08/03/17 Khris Arthur MD 49[address] [facility] [address] [place] [address] Medical Oncologist/Back Panel Padder Medical Oncology 10/23/17 [place] [address] [facility] [address] [place] [address] Surgeon Orthopedic Surgery 10/23/17 [place] [address] [address] Consulting Physician Pain Management 10/23/17 [place] [address] [facility] [address] [place] [address] Referring Physician General Surgery 01/26/18 [place] [address] [facility] [address] [place] [address] Consulting Physician Neurology 01/26/18 documented as of this encounter
--- OUTSIDE RECORDS SUMMARY | 2024-04-26 09:19 | XMS_ITS | Encounter Summary ---
Author Organization [facility] Healthcare Address [address] [place] [address] Care Team Providers Care Wader Boot Top Assembler Name Role Phone Liu Jerez MD Unavailable Albert Corbin MD Unavailable Justen Gale MD Primary Care Provider [phone] Khris Arthur MD Unavailable [phone] Ko Melendez MD Unavailable John Paul Moyer MD Unavailable Annel Rod MD Unavailable Anali MARSHALL MD, Carlos M. 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) Nausea and vomiting, unspecified vomiting type Procedures ADM Referral ID Status Reason Start Date Expiration Date Visits Re quested Visits Authorized [id number] 1 1 Encounter Details Date Type Department Care Team (Latest Contact Info) Description 09/11/2021 2:57 PM CDT - 09/14/2021 4:42 PM CDT Hospital Encounter [facility] 5 Med Surg [address] [place] [address] MargaretKirit callawayDO [address] [place] [address] Drew Calero MD [facility]1 [place] [address] Sravan Patel MD [address] [place] [address] [place] [address] Antonella Christianson MD [facility] [facility] [place] [address] Chest pain, unspecified type (Primary Dx); Nausea and vomiting, unspecified vomiting type; Type 2 diabetes mellitus without complication, unspecified 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 [id number] mitral valve annular calcification but no stenosis. [...] by Cleo Garza M.D. BG: Report ID: [id number] Reading Location: [id number] CT Abdomen Pelvis WO Contrast Result Date: [...] by Cleo Garza M.D. BG: Report ID: [id number] Reading Location: [id number] XR Knee Left 1 or 2 Views [...] Sen Sy M.D. JANIYA: JANIYA Report ID: [id number] Reading Location: [id number] XR Tibia Fibula Left 2 Views Result [...] Sen Sy M.D. JANIYA: JANIYA Report ID: [id number] Reading Location: [id number] Stress Test for Myocardial Perfusion Result Date: 09/14/2021 Narrative: [facility] Job ID: [id number] [employer] Document ID: [id number] Dictated date/time: [id number] [place] [facility] Patient was brought into stress [...] dictated by Radiology. Job ID/Internal Job ID: [id number] Transthoracic Echo Complete W Doppler/CF Result Date: 09/13/2021 Narrative: Adult Echocardiogram + + :Name: MOHSEN MARQUES Study Date: 09/13/2021 Status: [facility] : : Patient Location: [address]^[id number]^MHeight: 61 in : : Weight: 282 lbBP: [...] Perfecto Arguello M.D. LB: TAYLOR Report ID: [id number] Reading Location: [id number] CT Chest PE W Contrast Result Date: [...] fracture. No aggressive bone or endplate destruction. OTHER:No significant abnormality. IMPRESSION: No evidence of an acute pulmonary embolus. Nonspecific mildly enlarged prevascular lymph node measuring 1.7 x 1.4 cm currently. Bilateral thyroid nodules, largest on the right measuring 1.5 cm. Routine follow-up with thyroid ultrasound may be obtained. THIS IS AN ELECTRONICALLY VERIFIED FINAL REPORT 09/11/2021 5:38 PM - Electronically signed by Giovanni Sky.Dana Johnston D.O. : Report ID: [id number] ReadingLocation: [id number] Discharge Details Physical Exam at Discharge: Discharge [...] Collaboration with patient, MD, direct care nurse, Armhole Baster Jumpbasting, Nurse Coordinator and other members of the health care team to assure needed interventions completed. 2. Return patient to optimal level of self-care post discharge. 3. Construction Trades Teacher will follow for Discharge Planning - interventions [...] Intake/Output Summary (Last 24 hours) at 09/14/2021 0928 Last data filed at 09/13/2021 1346 Gross [...] Units, subcutaneous, TID AC, 12 Units at 05/23/22 1717 ??? ondansetron ODT (ZOFRAN-ODT) disintegrating tablet [...] risk factors for coronary artery disease. Recommendation: Savagemady Nathan to rule out ischemic cause of her [...] tongue midline, mucosa moist Lungs CTA Heart: [id number], no significant murmur or gallop Abd: +BS, [...] prep. Distal esophagus is unremarkable. Stomach and proxim al small bowel are unremarkable. No small bowel [...] by Cleo Garza M.D. BG: Report ID: [id number] Reading Location: [id number] CT Chest PE W Contrast ?? Result [...] fracture. No aggressive bone or endplate destruction. OTHER:No significant abnormality. IMPRESSION: No evidence of an acute pulmonary embolus. Nonspecific mildly enlarged prevascular lymph node measuring 1.7 x 1.4 cm currently. Bilateral thyroid nodules, largest on the right measuring 1.5 cm. Routine follow-up with thyroid ultrasound may be obtained. THIS IS AN ELECTRONICALLY VERIFIED FINAL REPORT 09/11/2021 5:38 PM - Electronically signed by Giovanni Johnston D.O. : Report ID: [id number] ReadingLocation: [id number] ?? Current Facility-Administered Medications Medication Dose Route Frequency Provider Last Rate Last Admin ??? albuterol HFA (PROVENTIL HFA,VENTOLIN HFA,PROAIR HFA) 90 mcg/actuation inhaler 2 puff 2 puff inhalation Q6H PRN (RT) rDew Calero MD ??? amitriptyline (ELAVIL) tablet 25 [...] Drew Calero MD 1 application at 09/12/21 6449 A/P: Principal Problem: Chest pain Resolved Problems: [...] Ordered Case discussed with Case Management and Armhole Baster Jumpbasting Medical complexity/risk: Moderate It took 26 minutes to review the chart, examined the patient, enter orders, discussed case with nurse, discussed case with Dr. Yeboah, and answer patient's questions and concerns at length I spent more than 50% of the time coordinating care and counseling Voice recognition software MModal Fluency Direct may have been used dictate and transcribe this document. Layout Technician variances may occur. Despite proofreading, typographical errors may occur. Sravan Patel MD 09/13/2021 3:51 PM * Ramon Guthrie - 09/13/2021 3:49 PM CDT 09/13/21 1500 Time Spent Start Time 022 Patient Spiritual Assessment Spirituality Assessed Yes Taoist Affiliation Pentecostal Active in Scientology Yes Clinical Encounter Type Visited With Patient Response Type Routine visit Routine Visit Introduction Reason for visit Support Sales Program Coordinator offered pastoral support to pt who was [...] 09/12/2021 Primary Care Physician: Justen Gale MD [phone] Chief Complaint: Chest pain HPI: Patient is [...] edema. Pulses palpable in upper lower extremities. MANAGER TRADING: Patient is alert orient 3. Able to [...] prep. Distal esophagus is unremarkable. Stomach and proxim al small bowel are unremarkable. No small bowel [...] by Cleo Garza M.D. BG: Report ID: [id number] Reading Location: [id number] CT Abdomen Pelvis WO Contrast Result Date: [...] by Cleo Garza M.D. BG: Report ID: [id number] Reading Location: [id number] XR Knee Left 1 or 2 Views [...] Sen Sy M.D. JANIYA: JANIYA Report ID: [id number] Reading Location: [id number] XR Tibia Fibula Left 2 Views Result [...] Sen Sy M.D. JANIYA: JANIYA Report ID: [id number] Reading Location: [id number] CT Chest PE W Contrast Result Date: [...] fracture. No aggressive bone or endplate destruction. OTHER:No significant abnormality. IMPRESSION: No evidence of an acute pulmonary embolus. Nonspecific mildly enlarged prevascular lymph node measuring 1.7 x 1.4 cm currently. Bilateral thyroid nodules, largest on the right measuring 1.5 cm. Routine follow-up with thyroid ultrasound may be obtained. THIS IS AN ELECTRONICALLY VERIFIED FINAL REPORT 09/11/2021 5:38 PM - Electronically signed by Giovanni Johnston D.O. : Report ID: [id number] ReadingLocation: [id number] ASSESSMENT/PLAN: Principal Problem: Chest pain Resolved Problems: [...] team will follow closely. Voice recognition software CropUp Direct may have been used to dictate and transcribe this document. Layout Technician variances may occur. Despite proofreading, typographical errors [...] Ultra-Fine Short Pen Needle 31 gauge x 16 needle USE 6 TIMES DAILY DIRECTED ??? blood glucose diagnostic (Playdom Ultra Test) strip 4 (four) times a [...] Duration 111 ms QRS-Interval (MSEC) 81 ms HI-Interval (MSEC) 131 ms QT Interval 354 ms QTc 385 ms QTC Interval ms P [place] 9 deg QRS [place] 6 deg T [place] 32 deg Results for orders placed during [...] time for clarification of Troponin order. Shanthi Valiente RN 09/12/21 0432 * Kirit Everett DO [...] x 5/16 needle ??? blood glucose diagnostic (Playdom Ultra Test) strip ??? clonazePAM (KlonoPIN) 1 [...] STs and Ts are normal. Borderline EKG. [facility] Labs Reviewed URINALYSIS AND [...] tendency for uric acid stone formation. Source: [place] [employer].Last revised 05-04-2017 CBC WITH AUTO DIFFERENTIAL - [...] by Cleo Garza M.D. BG: Report ID: [id number] Reading Location: [place] [address] CT Chest PE W Contrast EXAM DESCRIPTION: [...] by Giovanni Johnston D.O. : Report ID: [id number] Reading Location: [id number] BP 139/62 (BP Location: Right arm, Patient Position: Lying) Pulse 73 Temp 36.8 ??C (98.2 ??F) (Temporal) Resp 19 Ht 154.9 cm (5' 1 ) Wt 130.5 kg (287 lb 11.2 oz) SpO2 97% BMI 54.36 kg/m?? 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 Plan of care discussed with patient/payroll representative, including as it relates to Principal Problem: Chest pain Patient progressing. Education provided includes Clinical Condition/Disease Processes: Chest pain and Stress Testing, Fall Prevention, and Pain Management. Patient and/or payroll representative Verbalizes understanding. Will continue to monitor. [...] * POCT glucose (09/14/2021 2:27 PM CDT) [facility] Glucose, POC 112 70 - 199 mg/dL MARY JANE PHAM Comment:Testing performed by : [address] [address] Glucose comment 1 Use This Result MARY JANE PHAM Comment:Testing performed by : [facility], [address] [place] [address]., [address] Blood 09/14/2021 2:27 PM CDT 09/14/2021 2:27 PM CDT Antonella Christianson MD LAB POCT ORDERABLES - DEVICE F inal Result MARY JANE PHAM [address] [facility] Department [place] [address] * Stress Test for Myocardial Perfusion (09/14/2021 11:11 AM CDT) Anatomical Region Laterality Modality Nuclear Medicine 09/14/2021 Narrative 09/14/2021 9:48 AM CDT [employer] Job ID: [id number] [employer] Document ID: [id number] Dictated date/time: [id number] [place] [facility] ?? Patient was brought into [...] dictated by Radiology. Job ID/Internal Job ID: ??[id number] Andrew Rani Marx MD CV STRESS PROCEDURES [...] AM T: ??09/14/2021 11:55 AM Report ID: [id number] Reading Location: ??[id number] Procedure Note Perfecto Arguello MD - 09/14/2021 [...] Perfecto Arguello M.D. LB: LB Report ID: [id number] Reading Location: [id number] Andrew Marx MD IMG NM PROCEDURES Final Result * POCT glucose (09/14/2021 11:05 AM CDT) Glucose, POC 168 70 - 199 mg/dL MARY JANE Comment:Testing performed by : [address], [address] Glucose comment 1 Use This Result MARY JANE Comment:Testing performed by : [address], [address] Blood 09/14/2021 11:0 5 AM CDT 09/14/2021 11:05 AM CDT Antonella Christianson MD LAB POCT ORDERABLES - DEVICE F inal Result Performing Organization Address [facility] de Phone Number [place] [id number] [facility] [place] [address] * POCT glucose (09/14/2021 7:23 AM CDT) [facility] Glucose, POC 153 70 - 199 mg/dL MARY JANE Comment:Testing performed by : [address], [address] Blood 09/14/2021 7:23 AM CDT 09/14/2021 7:23 AM CDT Antonella Christianson MD LAB POCT ORDERABLES - DEVICE F inal Result Performing Organization Address [facility] de Phone Number [facility] [address] [facility] [place] [address] * eGFR (09/14/2021 3:40 AM CDT) Pathologist [facility] eGFR 96 mL/min/1. 73 m2 MARY JANE [...] was last reviewed 2021. Testing performed by: [address] [address] Blood 09/14/2021 3:40 AM CDT 09/14/2021 4:23 AM CDT us Sravan Patel MD LAB BLOOD ORDERABLES Deann bowman Result [facility] [address] [facility] Department [place] [address] * (ABNORMAL) Differential, auto (09/14/2021 3:40 AM CDT) Neutrophil abs 8.2(H) 1.7 - 6.5 K/cumm MARY JANE PHAM Comment:Testing performed by : [address] [address] Imm gran abs 0.1 0.0 - 0.1 K/cumm MARY JANE PHAM Comment:Testing performed by : [address] [address] Lymphocyte abs 2.7 0.8 - 3.3 K/cumm MARY JANE Comment:Testing performed by : [address] [address] Monocyte abs 1.0(H) 0.2 - 0.8 K/cumm MARY JANE Comment:Testing performed by : [address] [address] Eosinophil abs 0.2 0.0 - 0.5 K/cumm MARY JANE Comment:Testing performed by : [address] [address] Basophil abs 0.0 0.0 - 0.1 K/cumm [facility] Comment:Testing performed by : [address] [address] Neutrophil pct 67.7 % [facility] Comment: Interpretive Data Percent cell count reference ranges are not reported, since discordance with absolute values may lead to misinterpretation of CBC data. Current Interpretive Data was last revised on 2017. Testing performed by: [address] [address] Imm gran pct 0.5 % [facility] Comment: Interpretive Data Percent cell count reference ranges are not reported, since discordance with absolute values may lead to misinterpretation of CBC data. Current Interpretive Data was last revised on 2017. Testing performed by: [address] [address] Lymphocyte pct 21.9 % [facility] Comment: Interpretive Data Percent cell count reference ranges are not reported, since discordance with absolute values may lead to misinterpretation of CBC data. Current Interpretive Data was last revised on 2017. Testing performed by: [address] [address] Monocyte pct 7.8 % [facility] Comment: Interpretive Data Percent cell count reference ranges are not reported, since discordance with absolute values may lead to misinterpretation of CBC data. Current Interpretive Data was last revised on 2017. Testing performed by: [address] [address] Eosinophil pct 1.9 % [facility] Comment: Interpretive Data Percent cell count reference ranges are not reported, since discordance with absolute values may lead to misinterpretation of CBC data. Current Interpretive Data was last revised on 2017. Testing performed by: [address] [address] Basophil pct 0.2 % MARY JANE Comment: Interpretive Data Percent cell count reference ranges are not reported, since discordance with absolute values may lead to misinterpretation of CBC data. Current Interpretive Data was last revised on 2017. Testing performed by: [address] [address] Blood 09/14/2021 3:40 AM CDT 09/14/2021 4:23 AM CDT us Sravan Patel MD LAB BLOOD ORDERABLES Deann bowman Result MARY JANE [address] [facility] Department [place] [address] * Basic metabolic panel (09/14/2021 3:40 AM CDT) Sodium 137 135 - 145 mmol/L MARY JANE Comment:Testing performed by : [address] [address] Potassium, pl 4.4 3.3 - 4.9 mmol/L MARY JANE Comment:Testing performed by : [address] [address] Chloride 102 97 - 110 mmol/L MARY JANE Comment:Testing performed by : [address] [address] CO2 24 22 - 32 mmol/L MARY JANE Comment:Testing performed by : [address] [address] Anion gap 11 2 - 15 mmol/L MARY JANE Comment:Testing performed by : [address] [address] BUN 24 8 - 25 mg/dL MARY JANE Comment:Testing performed by : [address] [address] Creatinine 0.70 0.60 - 1.10 mg/dL MARY JANE Comment:Testing performed by : [address] [address] Glucose 182 70 - 199 mg/dL MARY [...] was last revised 2017. Testing performed by: [address] [address] Calcium 9.2 8.5 - 10.3 mg/dL MARY JANE Comment:Testing performed by : [address] [address] Blood 09/14/2021 3:40 AM CDT 09/14/2021 4:23 AM CDT us Sravan Patel MD LAB BLOOD ORDERABLES Deann l Result MARY JANE [address] [facility] Department [place] [address] * (ABNORMAL) CBC with auto differential (09/14/2021 3:40 AM CDT) WBC 12.1(H) 3.8 - 9.9 K/cumm MARY JANE PHAM Comment:Testing performed by : [address] [address] Hgb 13.5 11.9 - 15.5 g/dL MARY JANE PHAM Comment:Testing performed by : [address] [address] Hct 43.5 35.6 - 45.5 % MARY JANE PHAM Comment:Testing performed by : [address] [address] Plt 267 150 - 400 K/cumm MARY JANE PHAM Comment:Testing performed by : [address] [address] MPV 10.2 9.1 - 12.3 fL MARY JANE PHAM Comment:Testing performed by : [address] [address] RBC 4.70 3.90 - 5.20 M/cumm MARY JANE PHAM Comment:Testing performed by : [address] [address] MCV 92.6 81.3 - 96.4 fL MARY JANE Comment:Testing performed by : [address] [address] MCH 28.7 27.1 - 33.3 pg MARY JANE PHAM Comment:Testing performed by : [address] [address] MCHC 31.0(L) 32.3 - 35.7 g/dL MARY JANE Comment:Testing performed by : [address], [address] RDW CV 13.7 11.1 - 14.9 % MARY JANE Comment:Testing performed by : [address], [address] RDW SD 47.0 35.7 - 48.1 fL MARY JANE Comment:Testing performed by : [address] [address] NRBC abs 0.00 0.00 - 0.01 K/cumm MARY JANE Comment:Testing performed by : [address] [address] Blood 09/14/2021 3:40 AM CDT 09/14/2021 4:23 AM CDT us Sravan Patel MD LAB BLOOD ORDERABLES Deann bowman Result MARY JANE [address] [facility] Department [place] [address] * eGFR (09/13/2021 5:13 PM CDT) [facility] eGFR 82 mL/min/1. 73 m2 MARY JANE [...] was last reviewed 2021. Testing performed by: [facility], [address] [place] [address]., [address] Blood 09/13/2021 5:13 PM CDT 09/13/2021 5:31 PM CDT us Sravan Patel MD LAB BLOOD ORDERABLES Deann bowman Result MARY JANE [address] [facility] Department [place] [address] * (ABNORMAL) Differential, auto (09/13/2021 5:13 PM CDT) Neutrophil abs 8.4(H) 1.7 - 6.5 K/cumm MARY JANE PHAM Comment:Testing performed by : [address] [address] Imm gran abs 0.1 0.0 - 0.1 K/cumm MARY JANE PHAM Comment:Testing performed by : [address], [place]., [address] Lymphocyte abs 3.0 0.8 - 3.3 K/cumm MARY JANE Comment:Testing performed by : [address], [place]., [address] Monocyte abs 0.9(H) 0.2 - 0.8 K/cumm MARY JANE Comment:Testing performed by : [address], [place]., [address] Eosinophil abs 0.2 0.0 - 0.5 K/cumm MARY JANE Comment:Testing performed by : [address], [place]., [address] Basophil abs 0.0 0.0 - 0.1 K/cumm MARY JANE Comment:Testing performed by : [address] [address] Neutrophil pct 66.4 % [facility] Comment: Interpretive Data Percent cell count reference ranges are not reported, since discordance with absolute values may lead to misinterpretation of CBC data. Current Interpretive Data was last revised on 2017. Testing performed by: [address] [address] Imm gran pct 0.5 % [facility] Comment: Interpretive Data Percent cell count reference ranges are not reported, since discordance with absolute values may lead to misinterpretation of CBC data. Current Interpretive Data was last revised on 2017. Testing performed by: [address] [address] Lymphocyte pct 23.9 % [facility] Comment: Interpretive Data Percent cell count reference ranges are not reported, since discordance with absolute values may lead to misinterpretation of CBC data. Current Interpretive Data was last revised on 2017. Testing performed by: [address] [address] Monocyte pct 7.1 % [facility] Comment: Interpretive Data Percent cell count reference ranges are not reported, since discordance with absolute values may lead to misinterpretation of CBC data. Current Interpretive Data was last revised on 2017. Testing performed by: [address] [address] Eosinophil pct 1.8 % MARY JANE Comment: Interpretive Data Percent cell count reference ranges are not reported, since discordance with absolute values may lead to misinterpretation of CBC data. Current Interpretive Data was last revised on 2017. Testing performed by: [facility], [address] [place] [address]., [address] Basophil pct 0.3 % MARY JANE Comment: Interpretive Data Percent cell count reference ranges are not reported, since discordance with absolute values may lead to misinterpretation of CBC data. Current Interpretive Data was last revised on 2017. Testing performed by: [address] [address] Blood 09/13/2021 5:13 PM CDT 09/13/2021 5:31 PM CDT Sravan Patel MD LAB BLOOD ORDERABLES Deann l Result Performing Organization Address City/[facility]/ZIP Co de Phone Number [address] [employer] [place] [address] * POCT glucose (09/13/2021 5:13 PM CDT) Pathologist [facility] Glucose, POC 131 70 - 199 mg/dL MARY JANE Comment:Testing performed by : [address] [address] Blood 09/13/2021 5:13 PM CDT 09/13/2021 5:13 PM CDT Sravan Patel MD LAB POCT ORDERABLES - DEV ICE Final Result [address] [place] [address] * (ABNORMAL) Comprehensive metabolic panel (09/13/2021 5:13 PM CDT) Pathologist [facility] Sodium 137 135 - 145 mmol/L MARY JANE Comment:Testing performed by : [address] [address] Potassium, pl 4.7 3.3 - 4.9 mmol/L [facility] Comment:Testing performed by : [address] [address] Chloride 99 97 - 110 mmol/L [facility] Comment:Testing performed by : [address], [place]., [address] CO2 28 22 - 32 mmol/L [facility] Comment:Testing performed by : [address], [place]., [address] Anion gap 10 2 - 15 mmol/L [facility] Comment:Testing performed by : [address], [place]., [address] BUN 19 8 - 25 mg/dL [facility] Comment:Testing performed by : [address], [place]., [address] Creatinine 0.80 0.60 - 1.10 mg/dL [facility] Comment:Testing performed by : [address] [address] Glucose 143 70 - 199 mg/dL [facility] [...] was last revised 2017. Testing performed by: [address] [address] Calcium 10.5(H) 8.5 - 10.3 mg/dL [facility] Comment:Testing performed by : [address] [address] Bilirubin, total 0.6 0.1 - 1.2 mg/dL [facility] Comment:Testing performed by : [address] [address] Protein, pl 9.1(H) 6.5 - 8.5 g/dL MARY JANE PHAM Comment:Testing performed by : [address] [address] Albumin 4.2 3.5 - 5.0 g/dL MARY JANE PHAM Comment:Testing performed by : [address] [address] Alk phos 96 40 - 130 Units/L MARY JANE PHAM Comment:Testing performed by : [address] [address] ALT 20 7 - 45 Units/L MARY JANE Comment:Testing performed by : [address] [address] AST 17 10 - 45 Units/L MARY JANE Comment:Testing performed by : [address] [address] Blood 09/13/2021 5:13 PM CDT 09/13/2021 5:31 PM CDT us Sravan Patel MD LAB BLOOD ORDERABLES Deann l Result MARY JANE [facility] Department of Laboratories [place], [place] [id number] * (ABNORMAL) CBC with auto differential (09/13/2021 5:13 PM CDT) WBC 12.7(H) 3.8 - 9.9 K/cumm MARY JANE PHAM Comment:Testing performed by : [address] [address] Hgb 14.9 11.9 - 15.5 g/dL MARY JANE PHAM Comment:Testing performed by : [address] [address] Hct 47.0(H) 35.6 - 45.5 % MARY JANE PHAM Comment:Testing performed by : [address] [address] Plt 281 150 - 400 K/cumm MARY JANE PHAM Comment:Testing performed by : [address] [address] MPV 9.5 9.1 - 12.3 fL MARY JANE PHAM Comment:Testing performed by : [facility], [address] [place] [address]., [address] RBC 5.13 3.90 - 5.20 M/cumm MARY JANE PHAM Comment:Testing performed by : [address] [address] MCV 91.6 81.3 - 96.4 fL MARY JANE Comment:Testing performed by : [address] [address] MCH 29.0 27.1 - 33.3 pg MARY JANE PHAM Comment:Testing performed by : [address] [address] MCHC 31.7(L) 32.3 - 35.7 g/dL MARY JANE Comment:Testing performed by : [address] [address] RDW CV 13.6 11.1 - 14.9 % MARY JANE Comment:Testing performed by : [address], [address] RDW SD 45.5 35.7 - 48.1 fL MARY JANE Comment:Testing performed by : [address] [address] NRBC abs 0.00 0.00 - 0.01 K/cumm MARY JANE Comment:Testing performed by : [address] [address] Blood 09/13/2021 5:13 PM CDT 09/13/2021 5:31 PM CDT us Sravan Patel MD LAB BLOOD ORDERABLES Deann l Result [facility] [address] [facility] Department [place] [address] * TRANSTHORACIC ECHO (TTE) COMPLETE W DOPPLER/CF W CONTRAST (09/13/2021 3:24 PM CDT) Anatomical Region Laterality Modality Ultrasound 09/13/2021 3:24 PM CDT Narrative 09/13/2021 11:01 PM CDT ? Adult Echocardiogram + ----- + :Name: MOHSEN MARQUES ??Study Date: 09/13/2021 ?Status: MHE ?: : ?Patient Location: [address]^[id number]^eit: 61 in ?: : ?Weight: 282 lbBP: [...] 09/13/2021 Adult Echocardiogram + ----- + :Name: MOHSEN MARQUES Study Date: 09/13/2021tatus: MHE : : Patient Location: [address]^[id number]^MHeight: 61 in : : : 282 lbBP: [...] by: Luis Elizabeth MD 09/13/2021 11:01 PM us Sravan Patel MD CV ECHO PROCEDURES Final Result * POCT glucose (09/13/2021 12:30 PM CDT) Glucose, POC 107 70 - 199 mg/dL MARY JANE Comment:Testing performed by : [address], [address] Glucose comment 1 Use This Result MARY JANE Comment:Testing performed by : [address], [address] Glucose comment 2 Will Notify Nurse MARY JANE Comment:Testing performed by : [address] [address] Blood 09/13/2021 12:3 0 PM CDT 09/13/2021 12:30 PM CDT Sravan Patel MD LAB POCT ORDERABLES - DEV ICE Final Result Performing Organization Address City/[facility]/ZIP Co de Phone Number [address] [place] [address] * POCT glucose (09/13/2021 9:03 AM CDT) [facility] Glucose, POC 128 70 - 199 mg/dL MARY JANE Comment:Testing performed by : [address], [address] Blood 09/13/2021 9:03 AM CDT 09/13/2021 9:03 AM CDT Sravan Patel MD LAB POCT ORDERABLES - DEV ICE Final Result Performing Organization Address City/[facility]/ZIP Co de Phone Number [address] [place] [address] * POCT glucose (09/12/2021 9:00 PM CDT) Glucose, POC 155 70 - 199 mg/dL MARY JANE Comment:Testing performed by : [address] [address] Blood 09/12/2021 9:00 PM CDT 09/12/2021 9:00 PM CDT Sravan Patel MD LAB POCT ORDERABLES - DEV ICE Final Result Performing Organization Address City/[facility]/ZIP Co de Phone Number [address] [address] * POCT glucose (09/12/2021 5:04 PM CDT) Glucose, POC 105 70 - 199 mg/dL MARY JANE Comment:Testing performed by : [address] [address] Glucose comment 1 Use This Result MARY JANE Comment:Testing performed by : [address] [address] Blood 09/12/2021 5:04 PM CDT 09/12/2021 5:04 PM CDT Sravan Patel MD LAB POCT ORDERABLES - DEV ICE Final Result Performing Organization Address [facility] Co de Phone Number [address] [address] * POCT glucose (09/12/2021 12:51 PM CDT) Glucose, POC 187 70 - 199 mg/dL MARY JANE Comment:Testing performed by : [address] [address] Blood 09/12/2021 12:5 1 PM CDT 09/12/2021 12:51 PM CDT us Sravan Patel MD LAB POCT ORDERABLES - DEV ICE Final Result Performing Organization Address City/[facility]/ZIP Co de Phone Number [address] [place] [address] * POCT glucose (09/12/2021 9:02 AM CDT) [facility] Glucose, POC 156 70 - 199 mg/dL MARY JANE Comment:Testing performed by : [address] [address] Glucose comment 1 Use This Result MARY JANE PHAM Comment:Testing performed by : [address] [address] Blood 09/12/2021 9:02 AM CDT 09/12/2021 9:02 AM CDT us Sravan Patel MD LAB POCT ORDERABLES - DEV ICE Final Result Performing Organization Address City/[facility]/ZIP Co de Phone Number [facility] [address] [place] [address] * (ABNORMAL) Troponin T high-sensitivity (09/12/2021 5:33 AM CDT) [facility] Trop T hs 17(H) <=14 ng/L MARY JANE Comment: Interpretive Data For further hscTnT resources including the diagnostic algorithm and an aid in interpretation, copy and paste this link: https://nrl.testcatalog.org/show/hsTrop Current Interpretive Data last revised 2020. Testing performed by: [address] [address] Blood 09/12/2021 5:33 AM CDT 09/12/2021 5:37 AM CDT us Drew Calero MD LAB BLOOD ORDERABLES Final Resul t [address] [place] [address] * ECG 12 lead (09/12/2021 4:46 AM CDT) [facility] Ventricular Rate EKG/Min 74 BPM [facility] Atrial Rate 74 BPM [facility] HI-Interval (MSEC) 134 ms [facility] QRS-Interval (MSEC) 82 ms [facility] QT-Interval (MSEC) 392 ms [facility] QTc 435 ms [facility] P [place] 51 degrees [facility] R [place] 6 degrees [facility] T [place] 39 degrees [facility] Diagnosis Normal sinus rhythm Normal ECG When compared with ECG of 11-SEP-2021 14:53, No significant change was found [facility] 09/12/2021 4:46 AM CDT 09/12/2021 7:54 PM CDT us Drew Calero MD ECG ORDERABLES Final Result Performing Organization Address City/[facility]/ZIP Co de Phone Number [facility] * (ABNORMAL) Troponin T high-sensitivity 6-hour (09/11/2021 11:06 PM CDT) Trop T hs 16(H) <=14 ng/L MARY JANE PHAM Comment: Ref Range High Interpretive Data For further hscTnT resources including the diagnostic algorithm and an aid in interpretation, copy and paste this link: https://nrl.testcatalog.org/show/hsTrop Current Interpretive Data last revised 2020. Testing performed by: [address] [address] Trop T hs delta See Comment ng/L MARY JANE PHAM Comment: Inappropriate collection time to report a delta. Testing performed by: [address] [address] Trop T hs pct delta See Comment % MARY JANE PHAM Comment: Inappropriate collection time to report a delta. Testing performed by: [address] [address] Trop T hs interp See Comment MARY JANE PHAM Comment: Inappropriate collection time to report a delta. Testing performed by: [address] [address] Blood 09/11/2021 11:0 6 PM CDT 09/11/2021 11:12 PM CDT us Sonali Snell NP LAB BLOOD ORDERABLES Final Result MARY JANE PHAM [address] [facility] Department [place] [address] * CT Abdomen Pelvis WO Contrast (09/11/2021 [...] PM T: ??09/11/2021 10:39 PM Report ID: [id number] Reading Location: ??[id number] Procedure Note Cleo Garza MD - 09/11/2021 [...] by Cleo Garza M.D. BG: Report ID: [id number] Reading Location: [id number] Kirit Everett DO IMG CT PROCEDURES Final Result * US Vein Duplex Lower Extremity Bilateral Complete (09/11/2021 7:00 PM CDT) Anatomical Region Laterality Modality Vascular Bilateral Ultrasound 09/11/2021 Narrative 09/16/2021 10:37 AM CDT [employer] Job ID: [id number] [employer] Document ID: [id number] Dictated date/time: REASON FOR EXAM Leg pain. [...] bilateral lower extremities. Job ID/Internal Job ID: ??[id number] Sonali Snell FURNITURE AND BEDDING INSPECTOR IMG US PROCEDURES Final Res ult * (ABNORMAL) Troponin T high-sensitivity 4-hour (09/11/2021 6:44 PM CDT) Trop T hs 15(H) <=14 ng/L MARY JANE PHAM Comment: Interpretive Data For further hscTnT resources including the diagnostic algorithm and an aid in interpretation, copy and paste this link: https://nrl.testcatalog.org/show/hsTrop Current Interpretive Data last revised 2020. Testing performed by: [address] [address] Trop T hs delta -2 ng/L MARY JANE PHAM Comment:Testing performed by : [facility], [address] [place] [address]., [address] Trop T hs interp Insignificant MARY JANE PHAM Comment:Testing performed by : [address] [address] Blood 09/11/2021 6:44 PM CDT 09/11/2021 7:07 PM CDT us Sonali Snell FURNITURE AND BEDDING INSPECTOR LAB BLOOD ORDERABLES Final Result MARY JANE PHAM [address] [facility] Department [place] [address] * CT Chest PE W Contrast (09/11/2021 [...] PM T: ??09/11/2021 5:38 PM Report ID: [id number] Reading Location: ??[id number] Procedure Note Giovanni Johnston DO - 09/11/2021 [...] by Giovanni Johnston D.O. : Report ID: [id number] Reading Location: [place] [address] us Estela Benhoff FURNITURE AND BEDDING INSPECTOR IMG CT PROCEDURES Final Res ult * (ABNORMAL) Urinalysis, microscopic only (09/11/2021 3:09 PM CDT) WBC, ur 0-5 0 - 5 /HPF MARY JANE PHAM Comment:Testing performed by : [address] [address] RBC, ur 3-5(A) 0 - 2 /HPF MARY JANE PHAM Comment:Testing performed by : [address] [address] Epithelial cells, squamous, ur 1-5 0 - 5 /HPF MARY JANE PHAM Comment:Testing performed by : [address] [address] Culture Reflex Comment Reflex conditions for urine culture (WBC >10) not met. MARY JANE PHAM Comment:Testing performed by : [address] [address] Urine 09/11/2021 3:09 PM CDT 09/11/2021 3:14 PM CDT Sonali Snell FURNITURE AND BEDDING INSPECTOR LAB URINE ORDERABLES Final Result MARY JANE PHAM [facility] Department [place] [address] * (ABNORMAL) Urinalysis reflex to microscopic and culture Urine (09/11/2021 3:09 PM CDT) Color, ur Yellow Yellow MARY JANE PHAM Comment:Testing performed by : [address] [address] Clarity, ur Clear Clear MARY JANE PHAM Comment:Testing performed by : [address] [address] Specific gravity, ur 1.014 1.003 - 1.030 MARY JANE PHAM Comment:Testing performed by : [address] [address] pH, urine 8.0 MARY JANE PHAM Comment:Testing performed by : [address] [address] Protein, ur ql Negative Negative MARY JANE PHAM Comment:Testing performed by : [address], [place]., [address] Glucose, ur ql Negative Negative MARY JANE Comment:Testing performed by : [address], [place]., [address] Ketones, ur Negative Negative MARY JANE Comment:Testing performed by : [address], [place]., [address] Bilirubin, ur Negative Negative MARY JANE Comment:Testing performed by : [address], [place]., [address] Blood, ur 1+(A) Negative MARY JANE Comment:Testing performed by : [address], [place]., [address] Urobilinogen, ur <2.0 <2.0 mg/dL MARY JANE Comment:Testing performed by : [address], [place]., [address] Nitrite, ur Negative Negative MARY JANE Comment:Testing performed by : [address], [place]., [address] Leukocyte esterase, ur Negative Negative MARY JANE Comment:Testing performed by : [address], [place]., [address] UA reflex comment Reflex to microscopic UA will be performed. MARY JANE Comment:Testing performed by : [address], [place]., [address] Urine 09/11/2021 3:09 PM CDT 09/11/2021 3:14 [...] tendency for uric acid stone formation. Source: [employer]. Last revised 05-04-2017 us Sonali Snell NP LAB MICROBIOLOGY - GENERAL ORDERABLES Final Result MARY JANE [address] [facility] Department [place] [address] * POCT creatinine for contrast evaluation (09/11/2021 3:03 PM CDT) [facility] Creatinine POC 0.70 0.60 - 1.10 mg/dL MARY JANE Comment:Testing performed by : [facility], [address] [place] [address]., [address] Blood 09/11/2021 3:03 PM CDT 09/11/2021 3:03 PM CDT Notinfile Unknown POINT OF CARE TEST ORDERABLES Final Result Performing Organization Address City/[facility] Co de Phone Number [facility] [address] [facility] Department [place] [address] * ECG 12 lead (09/11/2021 2:53 PM CDT) [facility] Ventricular Rate EKG/Min 87 BPM [facility] Atrial Rate 87 BPM [facility] HI-Interval (MSEC) 128 ms [facility] QRS-Interval (MSEC) 82 ms [facility] QT-Interval (MSEC) 370 ms [facility] QTc 445 ms [facility] P [place] 50 degrees [facility] R [place] -2 degrees [facility] T [place] 41 degrees [facility] Diagnosis Normal sinus rhythm Possible Left atrial enlargement Borderline ECG No previous ECGs available [facility] 09/11/2021 2:53 PM CDT 09/12/2021 7:37 PM CDT Sonali Snell FURNITURE AND BEDDING INSPECTOR ECG ORDERABLES Final Resul t Performing Organization Address City/[facility]/ZIP Co de Phone Number [facility] * POCT troponin (09/11/2021 2:49 PM CDT) [facility] Troponin I Point of Care 0.00 0.00 - 0.08 ng/mL MARY JANE PHAM Comment: Interpretive Data If result is <= 0.08 ng/mL: ??Not Detected. If result is ??> 0.08 ng/mL: ??Detected. The [employer] iSTAT point of care assay (Troponin I) [...] was last revised 2020. Testing performed by: [address] [address] Blood 09/11/2021 2:49 PM CDT 09/11/2021 2:49 PM CDT Notinfile Unknown LAB POCT ORDERABLES - DEVICE F inal Result Performing Organization Address [facility] Co de Phone Number [facility] [address] [facility] [place] [address] * TSH reflex to free T4 (09/11/2021 2:46 PM CDT) Pathologist [facility] TSH 2.20 0.30 - 4.20 mcIUnit/mL [facility] Comment:Testing performed by : [address] [address] Blood 09/11/2021 2:46 PM CDT 09/11/2021 7:12 PM CDT Kirit Everett DO LAB BLOOD ORDERABLES Final Res ult Performing Organization Address [facility] Co de Phone Number [facility] [address] [facility] [place] [address] * eGFR (09/11/2021 2:46 PM CDT) Pathologist [facility] eGFR 100 mL/min/1. 73 m2 [facility] Comment: Interpretive Data Reference Interval [...] was last reviewed 2021. Testing performed by: [address] [address] Blood 09/11/2021 2:46 PM CDT 09/11/2021 2:54 PM CDT us Sonali Snell NP LAB BLOOD ORDERABLES Final Result Performing Organization Address City/State/[facility] Co de Phone Number MARY JANE [address] [facility] Department [place] [address] * (ABNORMAL) Differential, auto (09/11/2021 2:46 PM CDT) Neutrophil abs 8.8(H) 1.7 - 6.5 K/cumm MARY JANE PHAM Comment:Testing performed by : [address] [address] Imm gran abs 0.1 0.0 - 0.1 K/cumm MARY JANE PHAM Comment:Testing performed by : [address] [address] Lymphocyte abs 2.5 0.8 - 3.3 K/cumm MARY JANE PHAM Comment:Testing performed by : [address] [address] Monocyte abs 0.8 0.2 - 0.8 K/cumm MARY JANE Comment:Testing performed by : [address] [address] Eosinophil abs 0.2 0.0 - 0.5 K/cumm MARY JANE Comment:Testing performed by : [address] [address] Basophil abs 0.0 0.0 - 0.1 K/cumm MARY JANE Comment:Testing performed by : [address] [address] Neutrophil pct 71.0 % MARY JANE Comment: Interpretive Data Percent cell count reference ranges are not reported, since discordance with absolute values may lead to misinterpretation of CBC data. Current Interpretive Data was last revised on 2017. Testing performed by: [address] [address] Imm gran pct 0.6 % [facility] Comment: Interpretive Data Percent cell count reference ranges are not reported, since discordance with absolute values may lead to misinterpretation of CBC data. Current Interpretive Data was last revised on 2017. Testing performed by: [address] [address] Lymphocyte pct 20.1 % [facility] Comment: Interpretive Data Percent cell count reference ranges are not reported, since discordance with absolute values may lead to misinterpretation of CBC data. Current Interpretive Data was last revised on 2017. Testing performed by: [address] [address] Monocyte pct 6.5 % [facility] Comment: Interpretive Data Percent cell count reference ranges are not reported, since discordance with absolute values may lead to misinterpretation of CBC data. Current Interpretive Data was last revised on 2017. Testing performed by: [address] [address] Eosinophil pct 1.5 % [facility] Comment: Interpretive Data Percent cell count reference ranges are not reported, since discordance with absolute values may lead to misinterpretation of CBC data. Current Interpretive Data was last revised on 2017. Testing performed by: [address] [address] Basophil pct 0.3 % MARY JANE PHAM Comment: Interpretive Data Percent cell count reference ranges are not reported, since discordance with absolute values may lead to misinterpretation of CBC data. Current Interpretive Data was last revised on 2017. Testing performed by: [address] [address] Blood 09/11/2021 2:46 PM CDT 09/11/2021 2:54 PM CDT Sonali Snell NP LAB BLOOD ORDERABLES Final Result Performing Organization Address [facility] de Phone Number [facility] [place] [place] [address] * (ABNORMAL) Troponin T high-sensitivity series (baseline, 2hr, 4hr, 6hr) (09/11/2021 2:46 PM CDT) Trop T hs 17(H) <=14 ng/L MARY JANE PHAM Comment: Interpretive Data For further hscTnT resources including the diagnostic algorithm and an aid in interpretation, copy and paste this link: https://nrl.testcatalog.org/show/hsTrop Current Interpretive Data last revised 2020. Testing performed by: [address] [address] Blood 09/11/2021 2:46 PM CDT 09/11/2021 2:54 PM CDT Sonali Snell NP LAB BLOOD ORDERABLES Final Result Performing Organization Address [facility] Co de Phone Number [facility] [address] [facility] [place] [address] * Comprehensive metabolic panel (09/11/2021 2:46 PM CDT) Sodium 138 135 - 145 mmol/L MARY JANE PHAM Comment:Testing performed by : [address] [address] Potassium, pl 4.6 3.3 - 4.9 mmol/L [facility] Comment: HEMOLYZED: Hemolysis interferes with the above test. Testing performed by: [address] [address] Chloride 100 97 - 110 mmol/L [facility] Comment:Testing performed by : [address] [address] CO2 26 22 - 32 mmol/L [facility] Comment:Testing performed by : [address], [place]., [address] Anion gap 12 2 - 15 mmol/L [facility] Comment:Testing performed by : [address] [address] BUN 15 8 - 25 mg/dL [facility] Comment:Testing performed by : [address] [address] Creatinine 0.60 0.60 - 1.10 mg/dL [facility] Comment:Testing performed by : [address] [address] Glucose 126 70 - 199 mg/dL [facility] [...] was last revised 2017. Testing performed by: [address] [address] Calcium 9.3 8.5 - 10.3 mg/dL [facility] Comment:Testing performed by : [address] [address] Bilirubin, total 0.7 0.1 - 1.2 mg/dL [facility] Comment:Testing performed by : [address] [address] Protein, pl 8.3 6.5 - 8.5 g/dL MARY JANE PHAM Comment:Testing performed by : [address] [address] Albumin 3.9 3.5 - 5.0 g/dL MARY JANE PHAM Comment:Testing performed by : [address] [address] Alk phos 88 40 - 130 Units/L MARY JANE Comment:Testing performed by : [address] [address] ALT 22 7 - 45 Units/L MARY JANE Comment: HEMOLYZED: Hemolysis interferes with the above test. Testing performed by: [address] [address] AST 25 10 - 45 Units/L MARY JANE Comment: HEMOLYZED: Hemolysis interferes with the above test. Testing performed by: [address] [address] Blood 09/11/2021 2:46 PM CDT 09/11/2021 2:54 PM CDT us Sonali Snell FURNITURE AND BEDDING INSPECTOR LAB BLOOD ORDERABLES Final Result MARY JANE [facility] Department of Laboratories [place], [place] [id number] * (ABNORMAL) CBC with auto differential (09/11/2021 2:46 PM CDT) WBC 12.4(H) 3.8 - 9.9 K/cumm MARY JANE PHAM Comment:Testing performed by : [address] [address] Hgb 13.5 11.9 - 15.5 g/dL MARY JANE PHAM Comment:Testing performed by : [address] [address] Hct 42.9 35.6 - 45.5 % MARY JANE PHAM Comment:Testing performed by : [address] [address] Plt 282 150 - 400 K/cumm MARY JANE PHAM Comment:Testing performed by : [address] [address] MPV 9.5 9.1 - 12.3 fL MARY JANE PHAM Comment:Testing performed by : [address] [address] RBC 4.66 3.90 - 5.20 M/cumm MARY JANE PHAM Comment:Testing performed by : [address] [address] MCV 92.1 81.3 - 96.4 fL MARY JANE Comment:Testing performed by : [address] [address] MCH 29.0 27.1 - 33.3 pg MARY JANE PHAM Comment:Testing performed by : [address] [address] MCHC 31.5(L) 32.3 - 35.7 g/dL MARY JANE Comment:Testing performed by : [address], [address] RDW CV 13.8 11.1 - 14.9 % MARY JANE Comment:Testing performed by : [address] [address] RDW SD 47.0 35.7 - 48.1 fL MARY JANE Comment:Testing performed by : [address], [address] NRBC abs 0.00 0.00 - 0.01 K/cumm MARY JANE Comment:Testing performed by : [address] [address] Blood 09/11/2021 2:46 PM CDT 09/11/2021 2:54 PM CDT us Sonali Snell NP LAB BLOOD ORDERABLES Final Result MARY JANE PHAM [address] [facility] Department of Laboratories [place], [place] [id number] * Pro B-type natriuretic peptide (09/11/2021 2:46 [...] Last Revised Date: 2017. 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 Home supply verified by pharmacy Given 09/13/2021 8:34 PM CDT 25 mg rOPINIRole (REQUIP) tablet 5 mg 5 mg, oral, Nightly, First dose on 09/12/21 at 2100, Patient Specific Bin Given 09/13/2021 8:33 PM CDT 5 mg Given 09/12/2021 9:23 PM CDT 5 mg rOPINIRole (REQUIP) tablet 5 mg 5 mg, oral, Once, On 09/12/21 at 0517, For 1 dose Given 09/12/2021 [...] xaralto 1400 (Given - Provider: Trudi Cooley RN)2121 (Given - Provider: Heaven Wilkinson RN) 0909 [...] mg (COMPLETED) 40 mg, oral, Once, On 09/12/21 at 0015, For 1 dose, Do not [...] mg (COMPLETED) 0.4 mg, intravenous, Once, On Tu09/14/21 at 0930, For 1 dose, Intra-Procedure (CV), [...] since 09/12/2021 at 1221 until manually unheld 09 (Due)1221 (Held by Provider - Provider: Sravan Patel MD - Reason: Hold for Procedure - Comment: Already on hold outpatient for surgery on ) 09 (Dose Auto Held - Provider: Sravan [...] mg (COMPLETED) 5 mg, oral, Once, On Mon09/12/21 at 0517, For 1 dose 0529 (Given [...] 2 puff, inhalation, Every 6 hours PRN (respiratory therapist assistant), wheezing, Starting on Mon09/12/21 at 0826 HYDROcodone-acetaminophe n (NORCO) 5-325 mg per tablet 1 tablet 1 tablet, oral, Every 4 hours PRN, 2nd line for pain, for pain, Starting on Mon09/12/21 at 0302, Indications: Pain 0306 (Given - Provider: Shanthi Valiente RN)1215 (Given - Provider: Trudi Cooley RN)1700 (Given - Provider: Trdui Cooley RN)2207 (Not Given - Provider: Heaven Wilkinson RN - Reason: Patient/family refused)2339 (Given - Provider: Heaven Wilkinson RN) 1104 (Given - Provider: Farzaneh Valero, RN)1611 (Given - Provider: Farzaneh Valero, RN - Comment: back)2028 (Given - Provider: Bubba Campbell, NURIS) 0407 (Given - Provider: Bubba Campbell, NURIS) ondansetron (ZOFRAN) injection 4 mg(Linked Group 1) 4 mg, intravenous, Administer over 2 Minutes, Every 6 hours PRN, nausea, vomiting, if not tolerating PO, Starting on 09/12/21 at 0257, Indications: Nausea and Vomiting 2229 (Given - Provider: Bubba Campbell, NURIS) ondansetron ODT (ZOFRAN-ODT) disintegrating tablet 4 [...] 1605 (Contrast Given - Provider: Alvina Clay [facility]) tc-99m tetrofosmin (MYOVIEW) injection 10.5 millicurie (COMPLETED) 10.5 millicurie, intravenous, Once in imaging, radiopharmaceutical, Starting on Mon09/14/21 at 0846, For 1 dose, Indications: Diagnostic Radiography 0847 (Given - Provider: Lila Sandoval, RT) tc-99m tetrofosmin (MYOVIEW) injection 38.1 millicurie (COMPLETED) 38.1 millicurie, intravenous, Once in imaging, radiopharmaceutical, Starting on Mon09/14/21 at 1111, For 1 dose, Indications: Diagnostic Radiography 1111 (Given - Provider: Lila Sandoval, RT) trolamine salicylate (ASPERCREME) 10 % cream [...] 09/12/2021 documented in this encounter Care Teams Wader Boot Top Assembler Relationship Specialty Start Date End Date Jusetn Gale MD 2 [facility] [address] [place] [address] PCP - General 10/09/17 Liu Jerez MD Consulting Physician Gastroenterology 07/28/17 [place] [address] [facility] [address] [place] [address] Consulting Physician Pulmonary Disease 08/03/17 [place] [address] [place] [address] [address] [place] [address] Medical Oncologist/Ore Bridge Operator Medical Oncology 10/23/17 [place] [address] [facility] [address] [place] [address] Surgeon Orthopedic Surgery 10/23/17 [place] [address] [address] Consulting Physician Pain Management 10/23/17 [place] [address] [facility] [address] [place] [address] Referring Physician General Surgery 01/26/18 [place] [address] [facility] [address] [place] [address] Consulting Physician Neurology 01/26/18 documented as of this encounter
--- OUTSIDE RECORDS SUMMARY | 2024-04-26 09:19 | XMS_ITS | Encounter Summary ---
Author Organization [facility] Healthcare Address [address] [place] [address] Care Team Providers Care Carpenter Streetcar Name Role Phone Liu Jerez MD Unavailable Albert Corbin MD Unavailable [phone] Justen Gale MD Primary Care Provider Khris Arthur MD Unavailable [phone] Ko Melendez MD Unavailable John Paul Moyer MD Unavailable Annel Rod MD Unavailable Anali MARSHALL MD, Carlos M. Unavailable Reason for Visit * Reason Comments Back Pain Rash Encounter Details Date Type Department Care Team (Late st Contact Info) Description 09/19/2021 5:24 PM CDT - 09/19/2021 6:[address] 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 blood glucose diagnostic (PanGenXuch Ultra Test) strip ??? exemestane (AROMASIN) 25 [...] drainage, rash, or signs of infection. Procedures [facility] Labs Reviewed CBC WITH AUTO DIFFERENTIAL - [...] addressed. This examination was transcribed using the [employer] computerized voice recognition system without human school cafeteria head cook. In an effort to expedite patient care, this report has not been adjusted for typographical, grammatical, and syntax by a trained medical records analyst. Clinical Impression: Post-op pain Glenna Rudd PA [...] was last reviewed 2021. Testing performed by: [address] [address] Blood 09/19/2021 5:20 PM CDT 09/19/2021 5:25 PM CDT us Glenna MCKEON LAB BLOOD ORDERABLES Final Result Performing Organization Address City/State/[facility] Co de Phone Number MARY JANE [address] [facility] Department [place] [address] * (ABNORMAL) Differential, auto (09/19/2021 5:20 PM CDT) Neutrophil abs 8.0(H) 1.7 - 6.5 K/cumm MARY JANE PHAM Comment:Testing performed by : [address] [address] Imm gran abs 0.1 0.0 - 0.1 K/cumm MARY JANE PHAM Comment:Testing performed by : [address] [address] Lymphocyte abs 2.4 0.8 - 3.3 K/cumm MARY JANE PHAM Comment:Testing performed by : [address] [address] Monocyte abs 0.8 0.2 - 0.8 K/cumm MARY JANE Comment:Testing performed by : [address], [place]., [address] Eosinophil abs 0.3 0.0 - 0.5 K/cumm [facility] Comment:Testing performed by : [address] [address] Basophil abs 0.0 0.0 - 0.1 K/cumm MARY JANE Comment:Testing performed by : [address] [address] Neutrophil pct 69.5 % [facility] Comment: Interpretive Data Percent cell count reference ranges are not reported, since discordance with absolute values may lead to misinterpretation of CBC data. Current Interpretive Data was last revised on 2017. Testing performed by: [address] [address] Imm gran pct 0.5 % [facility] Comment: Interpretive Data Percent cell count reference ranges are not reported, since discordance with absolute values may lead to misinterpretation of CBC data. Current Interpretive Data was last revised on 2017. Testing performed by: [address] [address] Lymphocyte pct 21.0 % [facility] Comment: Interpretive Data Percent cell count reference ranges are not reported, since discordance with absolute values may lead to misinterpretation of CBC data. Current Interpretive Data was last revised on 2017. Testing performed by: [address] [address] Monocyte pct 6.5 % [facility] Comment: Interpretive Data Percent cell count reference ranges are not reported, since discordance with absolute values may lead to misinterpretation of CBC data. Current Interpretive Data was last revised on 2017. Testing performed by: [address] [address] Eosinophil pct 2.2 % [facility] Comment: Interpretive Data Percent cell count reference ranges are not reported, since discordance with absolute values may lead to misinterpretation of CBC data. Current Interpretive Data was last revised on 2017. Testing performed by: [address] [address] Basophil pct 0.3 % MARY JANE Comment: Interpretive Data Percent cell count reference ranges are not reported, since discordance with absolute values may lead to misinterpretation of CBC data. Current Interpretive Data was last revised on 2017. Testing performed by: [address] [address] Blood 09/19/2021 5:20 PM CDT 09/19/2021 5:25 PM CDT us Glenna MCKEON LAB BLOOD ORDERABLES Final Result MARY JANE [facility] Department [place] [address] * (ABNORMAL) Comprehensive metabolic panel (09/19/2021 5:20 PM CDT) Sodium 133(L) 135 - 145 mmol/L MARY JANE PHAM Comment:Testing performed by : [address] [address] Potassium, pl 4.7 3.3 - 4.9 mmol/L MARY JANE Comment:Testing performed by : [address] [address] Chloride 98 97 - 110 mmol/L MARY JANE Comment:Testing performed by : [address] [address] CO2 28 22 - 32 mmol/L MARY JANE Comment:Testing performed by : [address] [address] Anion gap 7 2 - 15 mmol/L MARY JANE Comment:Testing performed by : [address] [address] BUN 15 8 - 25 mg/dL MARY JANE Comment:Testing performed by : [address] [address] Creatinine 0.60 0.60 - 1.10 mg/dL MARY JANE Comment:Testing performed by : [address] [place]., [address] Glucose 281(H) 70 - 199 mg/dL [facility] Comment: Interpretive Data Fasting glucose >/= 126 [...] was last revised 2017. Testing performed by: [address] [address] Calcium 9.4 8.5 - 10.3 mg/dL [facility] Comment:Testing performed by : [address] [address] Bilirubin, total 0.4 0.1 - 1.2 mg/dL [facility] Comment:Testing performed by : [address] [address] Protein, pl 7.8 6.5 - 8.5 g/dL [facility] Comment:Testing performed by : [address] [address] Albumin 3.5 3.5 - 5.0 g/dL [facility] Comment:Testing performed by : [address] [address] Alk phos 82 40 - 130 Units/L [facility] Comment:Testing performed by : [address] [address] ALT 26 7 - 45 Units/L [facility] Comment:Testing performed by : [address] [address] AST 18 10 - 45 Units/L [facility] Comment:Testing performed by : [address] [address] Blood 09/19/2021 5:20 PM CDT 09/19/2021 5:25 PM CDT us Glenna MCKEON LAB BLOOD ORDERABLES Final Result MARY JANE [address] [facility] Department of Laboratories [place], [place] [id number] * (ABNORMAL) CBC with auto differential (09/19/2021 5:20 PM CDT) WBC 11.5(H) 3.8 - 9.9 K/cumm MARY JANE [facility] Comment:Testing performed by : [address] [address] Hgb 12.2 11.9 - 15.5 g/dL MARY JANE Comment:Testing performed by : [address], [address] Hct 39.2 35.6 - 45.5 % MARY JANE Comment:Testing performed by : [address] [address] Plt 235 150 - 400 K/cumm MARY JANE Comment:Testing performed by : [address], [address] MPV 9.6 9.1 - 12.3 fL MARY JANE Comment:Testing performed by : [address] [address] RBC 4.19 3.90 - 5.20 M/cumm MARY JANE [facility] Comment:Testing performed by : [address] [address] MCV 93.6 81.3 - 96.4 fL MARY JANE Comment:Testing performed by : [address] [address] MCH 29.1 27.1 - 33.3 pg MARY JANE Comment:Testing performed by : [address] [address] MCHC 31.1(L) 32.3 - 35.7 g/dL MARY JANE Comment:Testing performed by : [address], [address] RDW CV 13.6 11.1 - 14.9 % MARY JANE Comment:Testing performed by : [address] [address] RDW SD 46.4 35.7 - 48.1 fL MARY JANE PHAM Comment:Testing performed by : [facility], [address] [place] [address]., [address] NRBC abs 0.00 0.00 - 0.01 K/cumm MARY JANE PHAM Comment:Testing performed by : [facility], [address] [place] [address]., [address] Blood 09/19/2021 5:20 PM CDT 09/19/2021 5:25 PM CDT us Glenna MCKEON LAB BLOOD ORDERABLES Final Result MARY JANE PH[facility] [address] [facility] Department [place] [address] documented in this encounter Visit [...] 09/19/2021 documented in this encounter Care Teams Carpenter Streetcar Relationship Specialty Start Date End Date Justen Gale MD [address] [place] [id number] PCP - General 10/09/17 Liu Jerez MD Consulting Physician Gastroenterology 07/28/17 [place] [address] [facility] [address] [place] [address] Consulting Physician Pulmonary Disease 08/03/17 Khris Arthur MD [address] [facility] [address] [place] [address] Medical Oncologist/Bioprocess Engineer Medical Oncology 10/23/17 [place] [address] [facility] [address] [place] [address] Surgeon Orthopedic Surgery 10/23/17 [place] [address] [facility] [address] [place] [address] Consulting Physician Pain Management 10/23/17 [place] [address] [facility] [address] [place] [address] Referring Physician General Surgery 01/26/18 [place] [address] [facility] [address] [place] [address] Consulting Physician Neurology 01/26/18 documented as of this encounter
--- OUTSIDE RECORDS SUMMARY | 2024-04-26 09:19 | XMS_ITS | Encounter Summary ---
Author Organization [facility] Healthcare Address [address] [place] [address] Care Team Providers Care Business Support Assistant Name Role Phone Liu eJrez MD Unavailable Albert Corbin MD Unavailable Justen Gale MD Primary Care Provider Khris Arthur MD Unavailable [phone] Ko Melendez MD Unavailable [phone] John Paul Moyer MD Unavailable [phone] Annel Rod MD Unavailable Anali MARSHALL MD, Carlos M. 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 * Weakness (AfterCare(R) Instructions(ER/ED)) (Swedish) documented in this encounter Medications at Time of Discharge albuterol HFA (PROVENTIL HFA,VENTOLIN HFA,PROAIR HFA) 90 mcg/actuation inhaler Inhale 2 puffs every 6 (six) hours as needed for wheezing or shortness of breath 04/19/2021 BD Ultra-Fine Short Pen Needle 31 gauge x 5/16 needle USE 6 TIMES DAILY DIRECTED 06/24/2021 blood glucose diagnostic (BitMethodTouch Ultra Test) strip 4 (four) times a [...] x 5/16 needle ??? blood glucose diagnostic (BitMethodTouch Ultra Test) strip ??? exemestane (AROMASIN) 25 [...] oriented to person, place, and time. Procedures [facility] Labs Reviewed URINALYSIS AND REFLEX TO [...] tendency for uric acid stone formation. Source: [place] [employer].Last revised 05-04-2017 CBC WITH AUTO DIFFERENTIAL - [...] 9.1 oz) SpO2 97% BMI 54.90 kg/m?? [facility] ED Course as of 10/21/21 0416 [...] MARY JANE PHAM Comment:Testing performed by : [facility], [address] [place] [address]., [address] RBC, ur 0-2 0 - 2 /HPF MARY JANE PHAM Comment:Testing performed by : [address] [address] Epithelial cells, squamous, ur 6-10(A) 0 - 5 /HPF MARY JANE PHAM Comment: Suggestive of contamination. Consider recollection by clean catch. Testing performed by: [address] [address] Mucous, ur Present(A) MARY JANE PHAM Comment:Testing performed by : [address] [address] Culture Reflex Comment Reflex conditions for urine culture (WBC >10) not met. MARY JANE Comment:Testing performed by : [address] [address] Urine, clean voided 10/20/2021 10:45 PM CDT 10/20/2021 10:48 PM CDT Kirit Everett DO LAB URINE ORDERABLES Final Res ult MARY JANE [address] [facility] [place] [address] * (ABNORMAL) Urinalysis reflex to microscopic and culture Urine, clean voided (10/20/2021 10:45 PM CDT) Color, ur Yellow Yellow MARY JANE Comment:Testing performed by : [address] [address] Clarity, ur Clear Clear MARY JANE Comment:Testing performed by : [address] [address] Specific gravity, ur 1.019 1.003 - 1.030 MARY JANE Comment:Testing performed by : [address] [address] pH, urine 6.0 MARY JANE Comment:Testing performed by : [address] [address] Protein, ur ql Negative Negative MARY JANE Comment:Testing performed by : [address] [address] Glucose, ur ql Negative Negative MARY JANE Comment:Testing performed by : [address] [address] Ketones, ur Negative Negative MARY JANE Comment:Testing performed by : [facility], [address] [place] [address]., [address] Bilirubin, ur Negative Negative MARY JANE PHAM Comment:Testing performed by : [address], [place]., [address] Blood, ur 2+(A) Negative MARY JANE PHAM Comment:Testing performed by : [address], [place]., [address] Urobilinogen, ur <2.0 <2.0 mg/dL MARY JANE PHAM Comment:Testing performed by : [address], [place]., [address] Nitrite, ur Negative Negative MARY JANE Comment:Testing performed by : [address] [address] Leukocyte esterase, ur Negative Negative MARY JANE PHAM Comment:Testing performed by : [address], [place]., [address] UA reflex comment Reflex to microscopic UA will be performed. MARY JANE PHAM Comment:Testing performed by : [address] [address] Urine, clean voided 10/20/2021 10:45 PM CDT [...] tendency for uric acid stone formation. Source: [employer]. Last revised 05-04-2017 us Kirit Everett DO LAB MICROBIOLOGY - GENERAL ORD ERABLES Final Result MARY JANE PHAM [address] [facility] [place] [address] * (ABNORMAL) CRP (acute phase) (10/20/2021 10:33 PM CDT) CRP 33.1(H) <=10.0 mg/L MARY JANE PHAM Comment:Testing performed by : [facility], [address] [place] [address]., [address] Blood 10/20/2021 10:3 3 PM CDT 10/20/2021 10:36 PM CDT Kirit Everett DO LAB BLOOD ORDERABLES Final Res ult Performing Organization Address [facility] Co de Phone Number [facility] [address] [address] * (ABNORMAL) Erythrocyte sedimentation rate (10/20/2021 10:33 PM CDT) Erythrocyte sedimentation rate 69(H) 1 - 30 mm/hr MARY JANE Comment:Testing performed by : [facility], [address] [place] [address]., [address] Blood 10/20/2021 10:3 3 PM CDT 10/20/2021 10:36 PM CDT Kirit Everett DO LAB BLOOD ORDERABLES Final Res ult Performing Organization Address [facility] de Phone Number [address] [address] * eGFR (10/20/2021 10:33 PM CDT) eGFR [...] last reviewed 2021. Testing performed by: [address] [address] Blood 10/20/2021 10:3 3 PM CDT 10/20/2021 10:36 PM CDT us Kirit Everett DO LAB BLOOD ORDERABLES Final Res ult MARY JANE [address] [facility] [place] [address] * (ABNORMAL) Differential, auto (10/20/2021 10:33 PM CDT) Neutrophil abs 6.6(H) 1.7 - 6.5 K/cumm MARY JANE PHAM Comment:Testing performed by : [address] [address] Imm gran abs 0.0 0.0 - 0.1 K/cumm MARY JANE Comment:Testing performed by : [address] [address] Lymphocyte abs 2.8 0.8 - 3.3 K/cumm MARY JANE Comment:Testing performed by : [address] [address] Monocyte abs 0.7 0.2 - 0.8 K/cumm MARY JANE Comment:Testing performed by : [address] [address] Eosinophil abs 0.4 0.0 - 0.5 K/cumm MARY JANE Comment:Testing performed by : [address] [address] Basophil abs 0.0 0.0 - 0.1 K/cumm MARY JANE Comment:Testing performed by : [address] [address] Neutrophil pct 61.9 % [facility] Comment: Interpretive Data Percent cell count reference ranges are not reported, since discordance with absolute values may lead to misinterpretation of CBC data. Current Interpretive Data was last revised on 2017. Testing performed by: [address] [address] Imm gran pct 0.4 % [facility] Comment: Interpretive Data Percent cell count reference ranges are not reported, since discordance with absolute values may lead to misinterpretation of CBC data. Current Interpretive Data was last revised on 2017. Testing performed by: [address] [address] Lymphocyte pct 26.4 % [facility] Comment: Interpretive Data Percent cell count reference ranges are not reported, since discordance with absolute values may lead to misinterpretation of CBC data. Current Interpretive Data was last revised on 2017. Testing performed by: [address] [address] Monocyte pct 7.0 % [facility] Comment: Interpretive Data Percent cell count reference ranges are not reported, since discordance with absolute values may lead to misinterpretation of CBC data. Current Interpretive Data was last revised on 2017. Testing performed by: [address] [address] Eosinophil pct 3.9 % [facility] Comment: Interpretive Data Percent cell count reference ranges are not reported, since discordance with absolute values may lead to misinterpretation of CBC data. Current Interpretive Data was last revised on 2017. Testing performed by: [address] [address] Basophil pct 0.4 % [facility] Comment: Interpretive Data Percent cell count reference ranges are not reported, since discordance with absolute values may lead to misinterpretation of CBC data. Current Interpretive Data was last revised on 2017. Testing performed by: [address] [address] Blood 10/20/2021 10:3 3 PM CDT 10/20/2021 10:36 PM CDT Kirit Everett DO LAB BLOOD ORDERABLES Final Res ult MARY JANE [address] [facility] [place] [address] * (ABNORMAL) Comprehensive metabolic panel (10/20/2021 10:33 PM CDT) Sodium 141 135 - 145 mmol/L MARY JANE Comment:Testing performed by : [address] [address] Potassium, pl 4.7 3.3 - 4.9 mmol/L MARY JANE Comment:Testing performed by : [address] [address] Chloride 101 97 - 110 mmol/L MARY JANE Comment:Testing performed by : [address] [address] CO2 31 22 - 32 mmol/L MARY JANE Comment:Testing performed by : [address] [address] Anion gap 9 2 - 15 mmol/L MARY JANE Comment:Testing performed by : [address] [address] BUN 17 8 - 25 mg/dL MARY JANE Comment:Testing performed by : [address] [address] Creatinine 0.70 0.60 - 1.10 mg/dL MARY JANE Comment:Testing performed by : [address] [address] Glucose 179 70 - 199 mg/dL MARY [...] was last revised 2017. Testing performed by: [address] [address] Calcium 10.6(H) 8.5 - 10.3 mg/dL MARY JANE Comment:Testing performed by : [address] [address] Bilirubin, total 0.3 0.1 - 1.2 mg/dL MARY JANE Comment:Testing performed by : [address] [address] Protein, pl 8.6(H) 6.5 - 8.5 g/dL MARY JANE Comment:Testing performed by : [address] [address] Albumin 4.2 3.5 - 5.0 g/dL MARY JANE Comment:Testing performed by : [address] [address] Alk phos 97 40 - 130 Units/L MARY JANE Comment:Testing performed by : [address] [address] ALT 20 7 - 45 Units/L MARY JANE Comment:Testing performed by : [address] [address] AST 21 10 - 45 Units/L MARY JANE Comment:Testing performed by : [address] [address] Blood 10/20/2021 10:3 3 PM CDT 10/20/2021 10:36 PM CDT us Kirit Everett DO LAB BLOOD ORDERABLES Final Res ult MARY JANE PHAM [address] [facility] [place] [address] * (ABNORMAL) CBC with auto differential (10/20/2021 10:33 PM CDT) WBC 10.6(H) 3.8 - 9.9 K/cumm MARY JANE PHAM Comment:Testing performed by : [address] [address] Hgb 13.1 11.9 - 15.5 g/dL MARY JANE Comment:Testing performed by : [address], [address] Hct 41.9 35.6 - 45.5 % MARY JANE Comment:Testing performed by : [address] [address] Plt 326 150 - 400 K/cumm MARY JANE Comment:Testing performed by : [address] [address] MPV 9.0(L) 9.1 - 12.3 fL MARY JANE Comment:Testing performed by : [address], [address] RBC 4.57 3.90 - 5.20 M/cumm MARY JANE Comment:Testing performed by : [address], [address] MCV 91.7 81.3 - 96.4 fL MARY JANE Comment:Testing performed by : [address] [address] MCH 28.7 27.1 - 33.3 pg MARY JANE Comment:Testing performed by : [address] [address] MCHC 31.3(L) 32.3 - 35.7 g/dL MARY JANE Comment:Testing performed by : [address], [address] RDW CV 13.9 11.1 - 14.9 % MARY JANE Comment:Testing performed by : [address] [address] RDW SD 46.7 35.7 - 48.1 fL MARY JANE Comment:Testing performed by : [address] [address] NRBC abs 0.00 0.00 - 0.01 K/cumm MARY JANE Comment:Testing performed by : [address] [address] Blood 10/20/2021 10:3 3 PM CDT 10/20/2021 10:36 PM CDT Kirit Everett DO LAB BLOOD ORDERABLES Final Res ult Performing Organization Address [facility]/ZIP Co de Phone Number MARY JANE [address] [facility] [place] [address] * POCT glucose (10/20/2021 10:12 PM CDT) [facility] Glucose, POC 179 70 - 199 mg/dL MARY JANE Comment:Testing performed by : [facility], [address] [place] [address]., [address] Glucose comment 1 Use This Result MARY JANE Comment:Testing performed by : [facility], [address] [place] [address]., [address] Blood 10/20/2021 10:1 2 PM CDT 10/20/2021 10:12 PM CDT Notinfile Unknown LAB POCT ORDERABLES - DEVICE F inal Result Performing Organization Address [facility] Co de Phone Number MARY JANE [address] [place] [address] documented in this encounter Visit Diagnoses Diagnosis [...] 2021 documented in this encounter Care Teams Business Support Assistant Relationship Specialty Start Date End Date Justen Gale MD 2 [facility] [address] [place] [address] PCP - General 10/09/17 Liu Jerez MD Consulting Physician Gastroenterology 07/28/17 [place] [address] [facility] [address] [place] [address] Consulting Physician Pulmonary Disease 08/03/17 Khris Arthur MD [address] [place] [address] [address] [place] [address] Medical Oncologist/Tower Switch Operator Medical Oncology 10/23/17 [place] [address] [facility] [address] [place] [address] Surgeon Orthopedic Surgery 10/23/17 [place] [address] [address] Consulting Physician Pain Management 10/23/17 [place] [address] [facility] [address] [place] [address] Referring Physician General Surgery 01/26/18 [place] [address] [facility] [address] [place] [address] Consulting Physician Neurology 01/26/18 documented as of this encounter
--- OUTSIDE RECORDS SUMMARY | 2024-04-26 09:20 | XMS_ITS | Encounter Summary ---
Author Organization [facility] Address [address] [place] [address] Phone Care Team Providers Care Natural Resource Technician Name Role Phone Liu Jerez MD Unavailable Albert Corbin MD Unavailable Justen Gale MD Primary Care Provider Khris Arthur MD Unavailable [phone] Ko Melendez MD Unavailable John Paul Moyer MD Unavailable Annel Rod MD Unavailable Anali MARSHALL MD, Carlos M. Unavailable [phone] Reason for Visit * Reason Onset Date Comments Appointment/Schedules 08/17/2021 Encounter Details Date Type Department Care Team (Late st Contact Info) Description 08/17/2021 Telephone [facility] Oncology [address] 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 Gender Identity Not on file Sexual [...] on filedocumented in this encounter Care Teams Natural Resource Technician Relationship Specialty Start Date End Date Justen Gale MD [address] [address] PCP - General 10/09/17 Liu Jerez MD Consulting Physician Gastroenterology 07/28/17 [place] [address] [facility] [address] [place] [address] Consulting Physician Pulmonary Disease 08/03/17 Khris Arthur MD [address] [facility] [address] [place] [address] Medical Oncologist/Supervisor Sign Shop Medical Oncology 10/23/17 [place] [address] [facility] [address] [place] [address] Surgeon Orthopedic Surgery 10/23/17 [place] [address] [facility] [address] [place] [address] Consulting Physician Pain Management 10/23/17 [place] [address] [facility] [address] [place] [address] Referring Physician General Surgery 01/26/18 [place] [address] [facility] [address] [place] [address] Consulting Physician Neurology 01/26/18 documented as of this encounter
--- OUTSIDE RECORDS SUMMARY | 2024-04-26 09:20 | XMS_ITS | Encounter Summary ---
Author Organization [facility] Healthcare Address [address] [place] [address] Care Team Providers Care Threader Name Role Phone Liu Jerez MD Unavailable Albert Corbin MD Unavailable [phone] Justen Gale MD Primary Care Provider [phone] Khris Arthur MD Unavailable [phone] Ko Melendez MD Unavailable John Paul Moyer MD Unavailable Annel Rod MD Unavailable Anali MARSHALL MD, Carlos M. 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 * Deep Vein Thrombosis (Discharge Care) (Beninese) documented in this encounter Medications at Time of Discharge albuterol HFA (PROVENTIL HFA,VENTOLIN HFA,PROAIR HFA) 90 mcg/actuation inhaler Inhale 2 puffs every 6 (six) hours as needed for wheezing or shortness of breath 1 BD Ultra-Fine Short Pen Needle 31 gauge x 5/16 needle USE 6 TIMES DAILY DIRECTED 2 blood glucose diagnostic ([employer] Ultra Test) strip 4 (four) times [...] x 5/16 needle ??? blood glucose diagnostic (Character BoosterTouch Ultra Test) strip ??? clonazePAM (KlonoPIN) 1 [...] Affect: Mood normal. Behavior: Behavior normal. Procedures [facility] Labs Reviewed - No data to display [...] instructions to continue Xarelto. Patient already has [place] at home for pain.Discussed warning signs and when to return to the ED to include signs/symptoms of PE. This examination was transcribed using the [employer] voice recognition system without human mannequin mounter. In an effort to expedite patient care, this report has not been adjusted for typographical, grammatical, and syntax by a trained senior medical transcriptionist. Close outpatient follow-up with a low threshold [...] PM T: ??09/03/2021 7:58 PM Report ID: [id number] Reading Location: ??[id number] Procedure Note Dillon Sy MD - 09/03/2021 [...] Sen Sy M.D. JANIYA: JANIYA Report ID: [id number] Reading Location: [place] [address] [facility] IMG XR PROCEDURES Final Result [...] PM T: ??09/03/2021 7:59 PM Report ID: [id number] Reading Location: ??[id number] Procedure Note Dillon Sy MD - 09/03/2021 [...] signed by Sen DENSON: JANIYA Report ID: [id number] Reading Location: [id number] Rosa [facility] IMMichael XR PROCEDURES Final Result [...] 09/03/2021 documented in this encounter Care Teams Threader Relationship Specialty Start Date End Date Justen Gale MD 2 [facility] [address] [place] [address] PCP - General 10/09/17 Liu Jerez MD Consulting Physician Gastroenterology 07/28/17 [place] [address] [facility] [address] [place] [address] Consulting Physician Pulmonary Disease 08/03/17 Khris Arthur MD [address] [facility] [address] [place] [address] Medical Oncologist/Ground Support Equipment Fitter Medical Oncology 10/23/17 [place] [address] [facility] [address] [place] [address] Surgeon Orthopedic Surgery 10/23/17 [place] [address] [facility] [address] [place] [address] Consulting Physician Pain Management 10/23/17 [place] [address] [facility] [address] [place] [address] Referring Physician General Surgery 01/26/18 [place] [address] [facility] [address], [place] [address] Consulting Physician Neurology 01/26/18 documented as of this encounter
--- OUTSIDE RECORDS SUMMARY | 2024-04-26 09:20 | XMS_ITS | Encounter Summary ---
Author Organization [facility] Address [address] [place] [address] Phone Care Team Providers Care Electrochemist Name Role Phone Liu Jerez MD Unavailable [phone] Albert Corbin MD Unavailable [phone] Justen Gale MD Primary Care Provider Khris Arthur MD Unavailable [phone] Ko Melendez MD Unavailable John Paul Moyer MD Unavailable [phone] Annel Rdo MD Unavailable Anali MARSHALL MD, Carlos M. Unavailable Reason for Visit * Oncology (Routine) - Closed Specialty Diagnoses / Procedures Referred By Contac t Referred To Contact Oncology Diagnoses Malignant neoplasm of overlapping sites of left female breast, unspecified estrogen receptor status (HCC) Procedures ONCBCN ARM DRAW APPT ONC LAB ONLY Khris Arthur MD [address] [facility] [address] [place] [address] Phone: tel: fax: Khris Arthur MD [address] [facility] 8[address] [place] [address] Phone: tel: fax: Referral ID Status Reason Start Date Expiration Date V isits Requested Visits Authorized [id number] Closed Specialty Services Required 07/23/2020 04/23/2024 99 99 Encounter Details Date Type Department Care Team (Latest Contact Info) Description 01/05/2021 5:00 PM CDT Clinical Support [facility] On[facility] 7th [place] [address] [place] [address] Malignant neoplasm of upper-inner quadrant of left [...] file 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 Gender Identity Not on file Sexual Orientation [...] was last reviewed 2020 Testing performed by: [facility], [address] [place] [phone] Blood 01/05/2021 4:20 PM CDT 01/05/2021 4:25 PM CDT Khris Arthur MD LAB BLOOD ORDERABLES Final Result [facility] Department of Laboratories [place], [place] [id number] * (ABNORMAL) Comprehensive metabolic panel (01/05/2021 4:20 PM CDT) [facility] Sodium 137 135 - 145 mmol/L MARY [place]ANE ANGELES Comment:Testing performed by : [facility], [address] [place] [phone] Potassium, pl 5.1(H) 3.3 - 4.9 mmol/L MARY JANE ANGELES Comment: Hemolyzed; result may be falsely elevated. Testing performed by: [facility], [address] [place] [phone] Chloride 99 97 - 110 mmol/L CERNER BJ Comment:Testing performed by : [facility], [address] [place] [phone] CO2 29 22 - 32 mmol/L CERNER BJ Comment:Testing performed by : [address] [phone] Anion gap 9 2 - 15 mmol/L CERNER BJ Comment:Testing performed by : [facility], [address] [place], [place] [phone] BUN 13 8 - 25 mg/dL CERNER BJ Comment:Testing performed by : [facility], [address] [place] [phone] Creatinine 0.72 0.60 - 1.10 mg/dL CERNER BJ Comment:Testing performed by : [address] [phone] Glucose 165 70 - 199 mg/dL CERNER [...] was last revised 2017. Testing performed by: [facility], [address] [place] [phone] Calcium 9.5 8.5 - 10.3 mg/dL CERNER BJ Comment:Testing performed by : [facility], [address] [place] [phone] Bilirubin, total 0.4 0.1 - 1.2 mg/dL CERNER BJ Comment:Testing performed by : [address] [address] Protein, pl 8.6(H) 6.5 - 8.5 g/dL CERNER BJH Comment:Testing performed by : [facility], [address] [facility] [phone] Albumin 4.0 3.5 - 5.0 g/dL [facility] Comment:Testing performed by : [facility], [address] [place] [phone] Alk phos 100 40 - 130 Units/L [facility] Comment:Testing performed by : [facility], [address] [place] [phone] ALT 21 7 - 45 Units/L [facility] Comment:Testing performed by : [facility], [address] [place] [phone] AST 27 10 - 45 Units/L [facility] Comment: Hemolyzed; result may be falsely elevated. Testing performed by: [facility], [address] [place] [phone] Blood 01/05/2021 4:20 PM CDT 01/05/2021 4:25 PM CDT us Khris Arthur MD LAB BLOOD ORDERABLES Final Result [facility] [place] [address] documented in this encounter Visit Diagnoses Diagnosis Malignant neoplasm of upper-inner quadrant of left breast in female, estrogen receptor positive (HCC) documented in this encounter Care Teams Electrochemist Relationship Specialty Start Date End Date Justen Gale MD [address] [address] PCP - General 10/09/17 Liu Jerez MD Consulting Physician Gastroenterology 07/28/17 [place] [address] [facility] H[address] [place] [address] Consulting Physician Pulmonary Disease 08/03/17 [place] [address] [place] [address] [address] [place] [address] Medical Oncologist/Tip Puncher Medical Oncology 10/23/17 [place] [address] [address] Surgeon Orthopedic Surgery 10/23/17 [place] [address] [address] Consulting Physician Pain Management 10/23/17 [place] [address] [address] [facility] [address] [place] [address] Referring Physician General Surgery 01/26/18 [place] [address] [address] [facility] [address] [place] [address] Consulting Physician Neurology 01/26/18 documented as of this encounter
--- OUTSIDE RECORDS SUMMARY | 2024-04-26 09:20 | XMS_ITS | Encounter Summary ---
Author Organization [facility] Healthcare Address [address] [place] [address] Care Team Providers Care Shade Cutter Name Role Phone Liu Jerez MD Unavailable Albert Corbin MD Unavailable Justen Gale MD Primary Care Provider Khris Arthur MD Unavailable [phone] Ko Melendez MD Unavailable John Paul Moyer MD Unavailable Annel Rod MD Unavailable Anali MARSHALL MD, Carlos M. Unavailable [phone] Reason for Visit * Reason Comments Flank Pain Urinary Frequency Encounter Details Date Type Department Care Team (Late st Contact Info) Description 08/16/2021 10:42 AM CDT - 08/16/2021 2:19 PM CDT Emergency [facility] Emergency Department [address] [place] [id number] [place] [address] 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 * Acute Abdominal Pain (Taxation Accountant) (Belarusian) * Urinary Incontinence (AfterCare(R) Instructions(ER/ED)) (Belarusian) * Acute Nausea and Vomiting (AfterCare(R) Instructions(ER/ED)) (Belarusian) documented in this encounter Medications at [...] tendency for uric acid stone formation. Source: Mabel Appiterate.Last revised 05-04-2017 CBC WITH AUTO DIFFERENTIAL - [...] p.r.n. By: Abiola Lees PA Time: 08/16 4567 Comment: I did explain to the patient [...] discharge at this time. I have given Karly Marques instructions regarding the diagnosis, expectations, follow [...] patient to follow-up with: Justen Gale MD [address] [place] [id number] DIAGNOSIS: 1. Acute right flank pain 2. [...] Glucose, POC 215(H) 70 - 199 mg/dL MARYJ ANE PHAM Comment:Testing performed by : [facility], [address] [place] [address]., [address] Glucose comment 1 Use This Result MARY JANE PHAM Comment:Testing performed by : [facility], [address] [place] [address]., [address] Blood 08/16/2021 12:3 5 PM CDT 08/16/2021 12:35 PM CDT us Notinfile Unknown LAB POCT ORDERABLES - DEVICE F inal Result MARY JANE [address] [facility] [place] [address] * CT Abdomen Pelvis WO Contrast (08/16/2021 [...] PM T: ??08/16/2021 12:47 PM Report ID: [id number] Reading Location: ??[id number] Procedure Note Cleo Garza MD - 08/16/2021 [...] by Cleo Garza M.D. BG: Report ID: [id number] Reading Location: [place] [address] PROCEDURES Final Resul [...] was last reviewed 2021. Testing performed by: [facility], [address] [place] [address]., [address] Blood 08/16/2021 10:4 7 AM CDT 08/16/2021 10:53 AM CDT Abiola MCKEON LAB BLOOD ORDERABLES Final Re sult MARY JANE PHAM [address] [facility] [place] [address] * (ABNORMAL) Urinalysis, microscopic only (08/16/2021 10:47 AM CDT) Pathologist [facility] WBC, ur 0-5 0 - 5 /HPF MARY JANE Comment:Testing performed by : [address] [address] RBC, ur 0-2 0 - 2 /HPF MARY JANE Comment:Testing performed by : [address] [address] Epithelial cells, squamous, ur 6-10(A) 0 - 5 /HPF MARY JANE Comment: Suggestive of contamination. Consider recollection by clean catch. Testing performed by: [address] [address] Mucous, ur Present(A) MARY JANE Comment:Testing performed by : [address] [address] Hyaline casts, ur 1-5 0 - 10 /LPF MARY JANE Comment:Testing performed by : [address] [address] Culture Reflex Comment Reflex conditions for urine culture (WBC >10) not met. MARY JANE Comment:Testing performed by : [address] [address] Urine 08/16/2021 10:4 7 AM CDT 08/16/2021 10:53 AM CDT us Abiola MCKEON LAB URINE ORDERABLES Final Re sult MARY JANE [address] [facility] Department of Laboratories [place], [place] [id number] * Differential, auto (08/16/2021 10:47 AM CDT) Pathologist [facility] Neutrophil abs 6.2 1.7 - 6.5 K/cumm MARY JANE Comment:Testing performed by : [address] [address] Imm gran abs 0.1 0.0 - 0.1 K/cumm MARY JANE Comment:Testing performed by : [address] [address] Lymphocyte abs 2.5 0.8 - 3.3 K/cumm MARY JANE Comment:Testing performed by : [address] [address] Monocyte abs 0.7 0.2 - 0.8 K/cumm [facility] Comment:Testing performed by : [address] [address] Eosinophil abs 0.3 0.0 - 0.5 K/cumm [facility] Comment:Testing performed by : [address], [place]., [address] Basophil abs 0.0 0.0 - 0.1 K/cumm [facility] Comment:Testing performed by : [address] [address] Neutrophil pct 63.6 % [facility] Comment: Interpretive Data Percent cell count reference ranges are not reported, since discordance with absolute values may lead to misinterpretation of CBC data. Current Interpretive Data was last revised on 2017. Testing performed by: [address] [address] Imm gran pct 0.6 % [facility] Comment: Interpretive Data Percent cell count reference ranges are not reported, since discordance with absolute values may lead to misinterpretation of CBC data. Current Interpretive Data was last revised on 2017. Testing performed by: [address] [address] Lymphocyte pct 25.7 % [facility] Comment: Interpretive Data Percent cell count reference ranges are not reported, since discordance with absolute values may lead to misinterpretation of CBC data. Current Interpretive Data was last revised on 2017. Testing performed by: [address] [address] Monocyte pct 7.2 % [facility] Comment: Interpretive Data Percent cell count reference ranges are not reported, since discordance with absolute values may lead to misinterpretation of CBC data. Current Interpretive Data was last revised on 2017. Testing performed by: [address] [address] Eosinophil pct 2.6 % [facility] Comment: Interpretive Data Percent cell count reference ranges are not reported, since discordance with absolute values may lead to misinterpretation of CBC data. Current Interpretive Data was last revised on 2017. Testing performed by: [address] [address] Basophil pct 0.3 % MARY JANE Comment: Interpretive Data Percent cell count reference ranges are not reported, since discordance with absolute values may lead to misinterpretation of CBC data. Current Interpretive Data was last revised on 2017. Testing performed by: [address] [address] Blood 08/16/2021 10:4 7 AM CDT 08/16/2021 10:53 AM CDT us Abiola MCKEON LAB BLOOD ORDERABLES Final Re sult MARY JANE [address] [facility] [place] [address] * (ABNORMAL) Urinalysis reflex to microscopic and culture Urine (08/16/2021 10:47 AM CDT) Color, ur Yellow Yellow MARY JANE Comment:Testing performed by : [address] [address] Clarity, ur Clear Clear MARY JANE Comment:Testing performed by : [address] [address] Specific gravity, ur 1.025 1.003 - 1.030 MARY JANE Comment:Testing performed by : [address] [address] pH, urine 5.0 MARY JANE Comment:Testing performed by : [address] [address] Protein, ur ql Negative Negative MARY JANE Comment:Testing performed by : [address] [address] Glucose, ur ql 1+(A) Negative MARY JANE Comment:Testing performed by : [address] [address] Ketones, ur Negative Negative MARY JANE Comment:Testing performed by : [address] [address] Bilirubin, ur Negative Negative MARY JANE Comment:Testing performed by : [facility], [address] [place] [address]., [address] Blood, ur 2+(A) Negative MARY JANE PHAM Comment:Testing performed by : [address] [address] Urobilinogen, ur <2.0 <2.0 mg/dL MARY JANE PHAM Comment:Testing performed by : [address] [address] Nitrite, ur Negative Negative MARY JANE Comment:Testing performed by : [address], [place]., [address] Leukocyte esterase, ur Negative Negative MARY JANE Comment:Testing performed by : [address] [address] UA reflex comment Reflex to microscopic UA will be performed. MARY JANE PHAM Comment:Testing performed by : [address] [address] Urine 08/16/2021 10:4 7 AM CDT 08/16/2021 [...] for uric acid stone formation. Source: [facility] irisnote. Last revised 05-04-2017 Abiola MCKEON LAB MICROBIOLOGY - GENERAL OR DERABLES Final Result MARY JANE [address] [facility] [place] [address] * Lipase (08/16/2021 10:47 AM CDT) Lipase 25 10 - 99 Units/L MARY JANE PHAM Comment:Testing performed by : [address], [place]., [address] Blood (Blood, Venous) 08/16/2021 10:47 AM CDT 08/16/2021 10:53 AM CDT us Abiola MCKEON LAB BLOOD ORDERABLES Final Re sult MARY JANE [address] [facility] [place] [address] * (ABNORMAL) Comprehensive metabolic panel (08/16/2021 10:47 AM CDT) Sodium 137 135 - 145 mmol/L MARY JANE Comment:Testing performed by : [address] [address] Potassium, pl 4.7 3.3 - 4.9 mmol/L MARY JANE Comment:Testing performed by : [address] [address] Chloride 101 97 - 110 mmol/L MARY JANE Comment:Testing performed by : [address] [address] CO2 28 22 - 32 mmol/L MARY JANE Comment:Testing performed by : [address] [address] Anion gap 8 2 - 15 mmol/L MARY JANE Comment:Testing performed by : [address] [address] BUN 15 8 - 25 mg/dL MARY JANE Comment:Testing performed by : [address] [address] Creatinine 0.60 0.60 - 1.10 mg/dL MARY JANE Comment:Testing performed by : [address] [address] Glucose 261(H) 70 - 199 mg/dL MARY [...] was last revised 2017. Testing performed by: [address] [address] Calcium 9.7 8.5 - 10.3 mg/dL MARY JANE Comment:Testing performed by : [address] [address] Bilirubin, total 0.5 0.1 - 1.2 mg/dL MARY JANE Comment:Testing performed by : [address] [address] Protein, pl 8.2 6.5 - 8.5 g/dL MARY JANE Comment:Testing performed by : [address] [address] Albumin 3.9 3.5 - 5.0 g/dL MARY JANE Comment:Testing performed by : [address] [address] Alk phos 86 40 - 130 Units/L MARY JANE Comment:Testing performed by : [address] [address] ALT 20 7 - 45 Units/L MARY JANE Comment:Testing performed by : [address] [address] AST 17 10 - 45 Units/L MARY JANE Comment:Testing performed by : [address] [address] Blood (Blood, Venous) 08/16/2021 10:47 AM CDT 08/16/2021 10:53 AM CDT us Abiola MCKEON LAB BLOOD ORDERABLES Final Re sult MARY JANE [address] [facility] [place] [address] * (ABNORMAL) CBC with auto differential (08/16/2021 10:47 AM CDT) Pathologist [facility] WBC 9.8 3.8 - 9.9 K/cumm MARY JANE Comment:Testing performed by : [address] [address] Hgb 14.0 11.9 - 15.5 g/dL MARY JANE Comment:Testing performed by : [address], [address] Hct 44.9 35.6 - 45.5 % MARY JANE Comment:Testing performed by : [address] [address] Plt 304 150 - 400 K/cumm MARY JANE Comment:Testing performed by : [address] [address] MPV 9.7 9.1 - 12.3 fL MARY JANE Comment:Testing performed by : [address], [address] RBC 4.85 3.90 - 5.20 M/cumm MARY JANE Comment:Testing performed by : [address], [address] MCV 92.6 81.3 - 96.4 fL MARY JANE Comment:Testing performed by : [address], [address] MCH 28.9 27.1 - 33.3 pg MARY JANE Comment:Testing performed by : [address], [address] MCHC 31.2(L) 32.3 - 35.7 g/dL MARY JANE Comment:Testing performed by : [address], [address] RDW CV 14.0 11.1 - 14.9 % MARY JANE Comment:Testing performed by : [address], [address] RDW SD 47.5 35.7 - 48.1 fL MARY JANE Comment:Testing performed by : [address], [address] NRBC abs 0.00 0.00 - 0.01 K/cumm MARY JANE Comment:Testing performed by : [address] [address] Blood (Blood, Venous) 08/16/2021 10:47 AM CDT 08/16/2021 10:53 AM CDT us Abiola MCKEON LAB BLOOD ORDERABLES Final Re sult MARY JANE [address] [facility] [place] [address] documented in this encounter Visit Diagnoses Diagnosis [...] 08/16/2021 documented in this encounter Care Teams Shade Cutter Relationship Specialty Start Date End Date Justen Gale MD [address] [address] PCP - General 10/09/17 Liu Jerez MD Consulting Physician Gastroenterology 07/28/[address] [place] [address] [facility] [address] [place] [address] Consulting Physician Pulmonary Disease 08/03/17 Khris Arthur MD [address] [facility] [address] [place] [address] Medical Oncologist/Stamp Machine Servicer Medical Oncology 10/23/[address] [place] [address] [facility] [address] [place] [address] Surgeon Orthopedic Surgery 10/23/17 [place] [address] [facility] [address] [place] [address] Consulting Physician Pain Management 10/23/[address] [place] [address] [facility] [address] [place] [address] Referring Physician General Surgery 01/26/18 [place] [address] [facility] [address] [place] [address] Consulting Physician Neurology 01/26/18 documented as of this encounter
--- OUTSIDE RECORDS SUMMARY | 2024-04-26 09:20 | XMS_ITS | Encounter Summary ---
Author Organization [facility] Address [address] [place] [address] Phone Care Team Providers Care Heat Treat Worker Name Role Phone Liu Jerez MD Unavailable Albert Corbin MD Unavailable Justen Gale MD Primary Care Provider Khris Arthur MD Unavailable [phone] Ko Melendez MD Unavailable [phone] John Paul Moyer MD Unavailable Annel Rod MD Unavailable Anali MARSHALL MD, Carlos M. Unavailable Encounter Details Date Type Department Care Team (Late st Contact Info) Description 02/02/2021 Telephone [facility] Oncology [address] 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 [phone] Message forwarded to Nurse Radha documented in this encounter Plan of Treatment Not on file documented as of this encounter Visit Diagnoses Not on filedocumented in this encounter Care Teams Heat Treat Worker Relationship Specialty Start Date End Date Justen Gale MD [address] [address] PCP - General 10/09/17 Liu Jerez MD Consulting Physician Gastroenterology 07/28/17 [place] [address] [facility] [address] [place] [address] Consulting Physician Pulmonary Disease 08/03/17 Khris Arthur MD [address] [facility] [address] [place] [address] Medical Oncologist/Welder Plasma Arc Medical Oncology 10/23/17 [place] [address] [facility] [address] [place] [address] Surgeon Orthopedic Surgery 10/23/17 [place] [address] [address] Consulting Physician Pain Management 10/23/17 [place] [address] [address] Referring Physician General Surgery 01/26/18 [place] [address] [facility] [address] [place] [address] Consulting Physician Neurology 01/26/18 documented as of this encounter
--- OUTSIDE RECORDS SUMMARY | 2024-04-26 09:20 | XMS_ITS | Encounter Summary ---
Author Organization [facility] Address [address] [place] [address] Phone Care Team Providers Care Foreign Broadcast Specialist Name Role Phone Liu Jerez MD Unavailable Albert Corbin MD Unavailable Justen Gale MD Primary Care Provider Khris Arthur MD Unavailable [phone] Ko Melendez MD Unavailable John Paul Moyer MD Unavailable Annel Rod MD Unavailable Anali MARSHALL MD, Carlos M. 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 [phone] documented in this encounter Plan of Treatment Not on file documented as of this encounter Visit Diagnoses Not on filedocumented in this encounter Care Teams Foreign Broadcast Specialist Relationship Specialty Start Date End Date Justen Gale MD [address] [address] PCP - General 10/09/17 Liu Jerez MD Consulting Physician Gastroenterology 07/28/17 [place] [address] [place] [id number] [place], [place] [id number] Consulting Physician Pulmonary Disease 08/03/17 Khris Arthur MD [address] [facility] [address] [place] [address] Medical Oncologist/Galley Stripper Medical Oncology 10/23/17 [place] [address] [facility] [address] [place] [address] Surgeon Orthopedic Surgery 10/23/17 [place] [address] [facility] [address] [place] [address] Consulting Physician Pain Management 10/23/17 [place] [address] [address] [facility] [address] [place] [address] Referring Physician General Surgery 01/26/18 [place] [address] [address] [facility] [address] [place] [address] Consulting Physician Neurology 01/26/18 documented as of this encounter
--- OUTSIDE RECORDS SUMMARY | 2024-04-26 09:20 | XMS_ITS | Encounter Summary ---
Author Organization [facility] Address [address] [place] [address] Phone Care Team Providers Care Napkin Band Wrapper Name Role Phone Liu Jerez MD Unavailable Albert Corbin MD Unavailable Justen Gale MD Primary Care Provider Khris Arthur MD Unavailable [phone] Ko Melendez MD Unavailable [phone] John Paul Moyer MD Unavailable Annel Rod MD Unavailable Anali MARSHALL MD, Carlos M. 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 Gender Identity Not on file Sexual Orientation Not on file documented as of this encounter Plan of Treatment Not on file documented as of this encounter Visit Diagnoses Diagnosis Malignant neoplasm of upper-inner quadrant of left breast in female, estrogen receptor positive (HCC)- Primary documented in this encounter Care Teams Napkin Band Wrapper Relationship Specialty Start Date End Date Justen Gale MD 2 [facility] [address] [place] [address] PCP - General 10/09/17 Liu Jerez MD Consulting Physician Gastroenterology 07/28/17 [place] [address] [address] [address] [place] [address] Consulting Physician Pulmonary Disease 08/03/17 Khris Arthur MD 49[address] [facility] [address] [place] [address] Medical Oncologist/Property Economist Medical Oncology 10/23/17 [place] [address] [address] [facility] [address] [place] [address] Surgeon Orthopedic Surgery 10/23/17 [place] [address] [address] [facility] [address] [place] [address] Consulting Physician Pain Management 10/23/17 [place] [address] [facility] [address] [place] [address] Referring Physician General Surgery 01/26/18 [place] [address] [address] [facility] [address] [place] [address] Consulting Physician Neurology 01/26/18 documented as of this encounter
--- OUTSIDE RECORDS SUMMARY | 2024-04-26 09:20 | XMS_ITS | Encounter Summary ---
Author Organization [facility] Address [address] [place] [address] Phone Care Team Providers Care Commercial Loan Reviewer Name Role Phone Liu Jerez MD Unavailable Albert Corbin MD Unavailable Justen Gale MD Primary Care Provider Khris Arthur MD Unavailable [phone] Ko Melendez MD Unavailable John Paul Moyer MD Unavailable Annel Rod MD Unavailable Anali MARSHALL MD, Carlos M. 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 Gender Identity Not on file Sexual Orientation [...] filedocumented in this encounter Care Teams Commercial Loan Reviewer Relationship Specialty Start Date End Date Justen Gale MD [address] [address] PCP - General 10/09/17 Liu Jerez MD Consulting Physician Gastroenterology 07/28/17 [place] [address] [facility] [address] [place] [address] Consulting Physician Pulmonary Disease 08/03/17 Khris Arthur MD 4921 [facility] [address] [place] [address] Medical Oncologist/Evaporator Repairer Medical Oncology 10/23/17 [place] [address] [facility] [facility] [address] [place] [address] Surgeon Orthopedic Surgery 10/23/17 [place] [address] [address] Consulting Physician Pain Management 10/23/17 [place] [address] [facility] [address] [place] [address] Referring Physician General Surgery 01/26/18 [place] [address] [facility] [address] [place] [address] Consulting Physician Neurology 01/26/18 documented as of this encounter
--- OUTSIDE RECORDS SUMMARY | 2024-04-26 09:20 | XMS_ITS | Encounter Summary ---
Author Organization [facility] Address [address] [place] [address] Phone Care Team Providers Care Contact Acid Plant Operator Name Role Phone Liu Jerez MD Unavailable Albert Corbin MD Unavailable Justen Gale MD Primary Care Provider [phone] Khris Arthur MD Unavailable [phone] Ko Melendez MD Unavailable [phone] John Paul Moyer MD Unavailable [phone] Annel Rod MD Unavailable Anali MARSHALL MD, Carlos M. 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 Gender Identity Not on file Sexual [...] on filedocumented in this encounter Care Teams Contact Acid Plant Operator Relationship Specialty Start Date End Date Justen Gale MD 2 [facility] [address] [place] [address] PCP - General 10/09/17 Liu Jerez MD Consulting Physician Gastroenterology 07/28/17 [place] [address] [address] [facility] [address] [place] [address] Consulting Physician Pulmonary Disease 08/03/17 Khris Arthur MD 4921 [facility] [address] [place] [address] Medical Oncologist/Loan Examiner Medical Oncology 10/23/17 [place] [address] [address] [facility] [address] [place] [address] Surgeon Orthopedic Surgery 10/23/17 [place] [address] [address] Consulting Physician Pain Management 10/23/[place] [address] [address] Referring Physician General Surgery 01/26/18 [place] [address] [facility] [address] [place] [address] Consulting Physician Neurology 01/26/18 documented as of this encounter
--- OUTSIDE RECORDS SUMMARY | 2024-04-26 09:20 | XMS_ITS | Encounter Summary ---
Author Organization [facility] Address [address] [place] [address] Phone Care Team Providers Care Progressive Care Unit Registered Nurse Name Role Phone Liu Jerez MD Unavailable Albert Corbin MD Unavailable Justen Gale MD Primary Care Provider Khris Arthur MD Unavailable [phone] Ko Melendez MD Unavailable [phone] John Paul Moyer MD Unavailable [phone] Annel Rod MD Unavailable Anali MARSHALL MD, Carlos M. 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 Gender Identity Not on file Sexual [...] documented as of this encounter Care Teams Progressive Care Unit Registered Nurse Relationship Specialty Start Date End Date Justen Gale MD [address] [address] PCP - General 10/09/17 Liu Jerez MD Consulting Physician Gastroenterology 07/28/17 [place] [address] [address] [place] [id number] [place] [address] Consulting Physician Pulmonary Disease 08/03/17 Khris Arthur MD 49[address] [facility] [address] [place] [address] Medical Oncologist/Parakeet Raiser Medical Oncology 10/23/17 [place] [address] [address] [facility] [address] [place] [address] Surgeon Orthopedic Surgery 10/23/17 [place] [address] [address] [facility] [address] [place] [address] Consulting Physician Pain Management 10/23/17 [place] [address] [facility] [facility] [address] [place] [address] Referring Physician General Surgery 01/26/18 [place] [address] [address] [facility] [address] [place] [address] Consulting Physician Neurology 01/26/18 documented as of this encounter
--- OUTSIDE RECORDS SUMMARY | 2024-04-26 09:20 | XMS_ITS | Encounter Summary ---
Author Organization [facility] Address [address] [place] [address] Phone Care Team Providers Care Surgical Oncologist Name Role Phone Liu Jerez MD Unavailable [phone] Albert Corbin MD Unavailable Justen Gale MD Primary Care Provider Khris Arthur MD Unavailable [phone] Ko Melendez MD Unavailable [phone] John Paul Moeyr MD Unavailable [phone] Annel Rod MD Unavailable Anali MARSHALL MD, Carlos M. 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 Gender Identity Not on file [...] documented as of this encounter Care Teams Surgical Oncologist Relationship Specialty Start Date End Date Justen Gale MD [address] [address] PCP - General 10/09/17 Liu Jerez MD Consulting Physician Gastroenterology 07/28/17 [place] [address] [address] [facility] [address] [place] [address] Consulting Physician Pulmonary Disease 08/03/17 Khris Arthur MD 49[address] [facility] [address] [place] [address] Medical Oncologist/Filenet Developer Medical Oncology 10/23/17 [place] [address] [address] [address] [place] [address] Surgeon Orthopedic Surgery 10/23/17 [place] [address] [address] [facility] [address] [place] [address] Consulting Physician Pain Management 10/23/17 [place] [address] [address] [facility] [address] [place] [address] Referring Physician General Surgery 01/26/18 [place] [address] [address] [facility] [address] [place] [address] Consulting Physician Neurology 01/26/18 documented as of this encounter
--- OUTSIDE RECORDS SUMMARY | 2024-04-26 09:20 | XMS_ITS | Encounter Summary ---
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 Unavailable Reason for Visit * Reason Comments Flank Pain Abdominal Pain Urinary Frequency * Auth/Cert Specialty Diagnoses / Procedures Referred By Elyssa t Referred To Contact Diagnoses Intractable pain 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) Procedures adm Referral ID Status Reason Start Date Expiration Date Visits Re quested Visits Authorized [id number] 1 1 Encounter Details Date Type Department Care Team (Latest Contact Info) Description 08/01/2021 12:45 PM CDT - 08/04/2021 11:15 AM CDT Hospital Encounter [facility] 4 Med Surg [address] [place] [address] Jamia Rangel DO [address] [place] [address] EMERGENCY MEDICINE [place], [place] [id number] Prince Varela MD [address] [place] [address] [place] [address] Sravan Patel MD [address] [place] [address] [place] [address] Antonella Christianson MD [address] [place] [address] [place] [address] 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) [...] on file 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 JS: SHANNON Report ID: [id number] Reading Location: [id number] Discharge Details Physical Exam at Discharge: Discharge [...] Hart MSW - 08/04/2021 8:56 AM CDT CLINICAL INFORMATICS DIRECTOR met briefly with pt as she thought [...] tongue midline, mucosa moist Lungs CTA Heart: [id number], no significant murmur or gallop Abd: +BS, [...] History of breast cancer Voice recognition software Vaxart Direct may have been used dictate and transcribe this document. Lbd Teacher variances may occur. Despite proofreading, typographical errors [...] tongue midline, mucosa moist Lungs CTA Heart: [id number], no significant murmur or gallop Abd: +BS, [...] Noe Morfin M.D. JS: SHANNON Report ID: [id number] Reading Location: [place] [address] ?? Current Facility-Administered Medications Medication Dose Route Frequency Provider Last Rate Last Admin ??? acetaminophen (TYLENOL) tablet 650 mg 650 mg oral Q4H PRN Al Prinec Kinney MD ??? amitriptyline (ELAVIL) tablet 25 [...] coli sensitivity to follow Will increase her [place] from 1 tab q.4 hours p.r.n. pain [...] Ordered Case discussed with Case Management and Employee Communications Intern Medical complexity/risk: Moderate Voice recognition software MModal Fluency Direct may have been used dictate and transcribe this document. Lbd Teacher variances may occur. Despite proofreading, typographical errors [...] Collaboration with patient, MD, direct care nurse, Employee Communications Intern, Nurse Coordinator and other members of the health care team to assure needed interventions completed. 2. Return patient to optimal level of self-care post discharge. 3. Track Leader will follow for Discharge Planning - interventions as needed 4. Anticipated level of care at discharge 5. Planned Discharge Disposition Darcy Loyola, RN * Ramon Guthrie. - 08/02/2021 12:59 PM CDT 08/02/21 1200 Time Spent Start Time 1129 Patient Spiritual Assessment Spirituality Assessed Yes Yazidi Affiliation Hinduism Active in Rastafarian Yes Clinical Encounter Type Visited With Patient [...] cane (uses both) Prior Function Level of [place] Independent functional transfers;Independent with ambulation;Needs assistancewith homemaking;Needs [...] Date Expected End Date End Date OT [facility] [place] 1 08/02/21 08/09/21 -- Goal Details: 1) LE ADL SBA WITH AE PRN. Goal Start Date Expected End Date End Date OT [facility] [place] 2 08/02/21 08/09/21 -- Goal Details: 2) FUNCTIONAL MOBILITY TO/FROM BATHROOM AND ALL ASPECTS TOILETING MODIFIED INDEP WITHDME. Goal Start Date Expected End Date End Date OT [facility] [place] 3 08/02/21 08/09/21 -- Goal Details: 3) [...] walker;Single point cane Prior Function Level of [place] Needs assistance with homemaking;Independent functional transfers;Independentwith ambulation;Needs [...] 08/01/2021 Primary Care Physician: Justen Gale MD [phone] CHIEF COMPLAINT: Patient is a 66 y.o. [...] Noe Morfin M.D. JS: SHANNON Report ID: [id number] Reading Location: [place] [address] ASSESSMENT/PLAN: Principal Problem: 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 (urinary tract [...] used to dictate and transcribe this document. Lbd Teacher variances may occur. Despite proofreading, typographical errors [...] night. . Plan of care discussed with patient/quality control representative, including as it relates to Principal Problem: 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) Patient progressing. Clinical goals for the shift No fall - Antibiotics therapy. Education providedincludes Fall Prevention. Patient and/or quality control representative Verbalizes understanding. Will continue to monitor. 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 Source: [place] [employer].Last revised 05-04-2017 CBC WITH AUTO DIFFERENTIAL - [...] Noe Morfin M.D. JS: SHANNON Report ID: [id number] Reading Location: [id number] BP 168/88 Pulse 87 Temp 36.8 ??C [...] (Reviewed) By: Jamia Rangel DO Time: 08/01 2511 Comment: Rechecked pt. Pt still in pain. [...] DO This examination was transcribed using the BlenderHouse computerized voice recognition system without human java solutions architect. In an effort to expedite patient care, this report has not been adjusted for typographical, grammatical, and syntax by a trained medical record specialist. Clinical Impression: 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) [...] MARY JANE PHAM Comment:Testing performed by : [address] [address] Blood 08/04/2021 7:44 AM CDT 08/04/2021 7:44 AM CDT Antonella Christianson MD LAB POCT ORDERABLES - DEVICE F inal Result MARY JANE PHAM [address] [facility] Department [place] [address] * (ABNORMAL) POCT glucose (08/03/2021 8:28 PM CDT) Glucose, POC 313(H) 70 - 199 mg/dL MARY JANE PHAM Comment:Testing performed by : [address] [address] Glucose comment 1 Use This Result MARY JANE PHAM Comment:Testing performed by : [address] [address] Blood 08/03/2021 8:28 PM CDT 08/03/2021 8:28 PM CDT Antonella Christianson MD LAB POCT ORDERABLES - DEVICE F inal Result Performing Organization Address [facility] de Phone Number MARY JANE [address] [address] * (ABNORMAL) POCT glucose (08/03/2021 3:47 PM CDT) Glucose, POC 208(H) 70 - 199 mg/dL MARY JANE Comment:Testing performed by : [address] [address] Glucose comment 1 Use This Result MARY JANE Comment:Testing performed by : [address] [address] Blood 08/03/2021 3:47 PM CDT 08/03/2021 3:47 PM CDT Result [facility] Antonella Christianson MD LAB POCT ORDERABLES - DEVICE F inal Result Performing Organization Address [facility] de Phone Number [address] [address] * (ABNORMAL) POCT glucose (08/03/2021 11:48 AM CDT) Glucose, POC 273(H) 70 - 199 mg/dL MARY JANE Comment:Testing performed by : [address] [address] Glucose comment 1 Use This Result MARY JANE Comment:Testing performed by : [address] [address] Blood 08/03/2021 11:4 8 AM CDT 08/03/2021 11:48 AM CDT Antonella Christianson MD LAB POCT ORDERABLES - DEVICE F inal Result Performing Organization Address [facility] Co de Phone Number MARY JANE [address] [place] [address] * (ABNORMAL) POCT glucose (08/03/2021 7:50 AM CDT) Glucose, POC 245(H) 70 - 199 mg/dL MARY JANE Comment:Testing performed by : [address] [address] Glucose comment 1 Use This Result MARY JANE Comment:Testing performed by : [address] [address] Blood 08/03/2021 7:50 AM CDT 08/03/2021 7:50 AM CDT us Antonella Christianson MD LAB POCT ORDERABLES - DEVICE F inal Result Performing Organization Address [facility] Co de Phone Number [address] [address] * (ABNORMAL) POCT glucose (08/02/2021 9:51 PM CDT) Glucose, POC 236(H) 70 - 199 mg/dL MARY JANE Comment:Testing performed by : [address] [address] Blood 08/02/2021 9:51 PM CDT 08/02/2021 9:51 PM CDT us Sravan Patel MD LAB POCT ORDERABLES - DEV ICE Final Result Performing Organization Address [facility] Co de Phone Number [address] [address] * POCT glucose (08/02/2021 5:02 PM CDT) Glucose, POC 176 70 - 199 mg/dL MARY JANE Comment:Testing performed by : [address] [address] Blood 08/02/2021 5:02 PM CDT 08/02/2021 5:02 PM CDT Sravan Patel MD LAB POCT ORDERABLES - DEV ICE Final Result Performing Organization Address [facility] Co de Phone Number MARY JANE [address] [facility] [place] [address] * POCT glucose (08/02/2021 12:14 PM CDT) Glucose, POC 124 70 - 199 mg/dL MARY JANE Comment:Testing performed by : [address] [address] Glucose comment 1 Use This Result MARY JANE Comment:Testing performed by : [address] [address] Glucose comment 2 Will Notify Nurse MARY JANE Comment:Testing performed by : [address] [address] Blood 08/02/2021 12:1 4 PM CDT 08/02/2021 12:14 PM CDT Sravan Patel MD LAB POCT ORDERABLES - DEV ICE Final Result Performing Organization Address [facility] Co de Phone Number MARY JANE [facility] [place] [address] * POCT glucose (08/02/2021 8:18 AM CDT) Glucose, POC 127 70 - 199 mg/dL MARY JANE Comment:Testing performed by : [address] [address] Glucose comment 1 Use This Result MARY JANE Comment:Testing performed by : [address] [address] Glucose comment 2 Will Notify Nurse MARY JANE Comment:Testing performed by : [address] [address] Blood 08/02/2021 8:18 AM CDT 08/02/2021 8:18 AM CDT us Sravan Patel MD LAB POCT ORDERABLES - DEV ICE Final Result Performing Organization Address [facility] Co de Phone Number MARY JANE [address] [facility] Department [place] [address] * eGFR (08/02/2021 3:27 AM CDT) Pathologist [facility] eGFR 96 mL/min/1. 73 m2 MARY [...] last reviewed 2021. Testing performed by: [facility], [address] [place] [address], [place]., [address] Blood 08/02/2021 3:27 AM CDT 08/02/2021 3:50 AM CDT us Prince Varela MD LAB BLOOD ORDERABLE S Final Result Performing Organization Address [facility] Co de Phone Number MARY JANE [address] [facility] Department [place] [address] * (ABNORMAL) Differential, auto (08/02/2021 3:27 AM CDT) Neutrophil abs 9.0(H) 1.7 - 6.5 K/cumm MARY JANE Comment:Testing performed by : [address] [address] Imm gran abs 0.1 0.0 - 0.1 K/cumm MARY JANE Comment:Testing performed by : [address] [address] Lymphocyte abs 2.8 0.8 - 3.3 K/cumm MARY JANE Comment:Testing performed by : [address] [address] Monocyte abs 0.9(H) 0.2 - 0.8 K/cumm MARY JANE Comment:Testing performed by : [address] [address] Eosinophil abs 0.3 0.0 - 0.5 K/cumm MARY JANE Comment:Testing performed by : [address] [address] Basophil abs 0.0 0.0 - 0.1 K/cumm MARY JANE Comment:Testing performed by : [address] [address] Neutrophil pct 68.6 % MARY JANE Comment: Interpretive Data Percent cell count reference ranges are not reported, since discordance with absolute values may lead to misinterpretation of CBC data. Current Interpretive Data was last revised on 2017. Testing performed by: [address] [address] Imm gran pct 0.5 % MARY JANE Comment: Interpretive Data Percent cell count reference ranges are not reported, since discordance with absolute values may lead to misinterpretation of CBC data. Current Interpretive Data was last revised on 2017. Testing performed by: [address] [address] Lymphocyte pct 21.3 % MARY JANE Comment: Interpretive Data Percent cell count reference ranges are not reported, since discordance with absolute values may lead to misinterpretation of CBC data. Current Interpretive Data was last revised on 2017. Testing performed by: [address] [address] Monocyte pct 7.2 % MARY JANE Comment: Interpretive Data Percent cell count reference ranges are not reported, since discordance with absolute values may lead to misinterpretation of CBC data. Current Interpretive Data was last revised on 2017. Testing performed by: [address] [address] Eosinophil pct 2.1 % MARY JANE Comment: Interpretive Data Percent cell count reference ranges are not reported, since discordance with absolute values may lead to misinterpretation of CBC data. Current Interpretive Data was last revised on 2017. Testing performed by: [address] [address] Basophil pct 0.3 % MARY JANE Comment: Interpretive Data Percent cell count reference ranges are not reported, since discordance with absolute values may lead to misinterpretation of CBC data. Current Interpretive Data was last revised on 2017. Testing performed by: [address] [address] Blood 08/02/2021 3:27 AM CDT 08/02/2021 3:50 AM CDT Prince Varela MD LAB BLOOD ORDERABLE S Final Result MARY JANE [address] [facility] Department of Laboratories [place], [place] [id number] * Basic metabolic panel (08/02/2021 3:27 AM CDT) Sodium 135 135 - 145 mmol/L MARY JANE PHAM Comment:Testing performed by : [address] [address] Potassium, pl 4.5 3.3 - 4.9 mmol/L MARY JANE PHAM Comment:Testing performed by : [address] [address] Chloride 99 97 - 110 mmol/L MARY JANE Comment:Testing performed by : [address] [address] CO2 25 22 - 32 mmol/L MARY JANE Comment:Testing performed by : [address] [address] Anion gap 11 2 - 15 mmol/L MARY JANE Comment:Testing performed by : [address] [address] BUN 16 8 - 25 mg/dL MARY JANE Comment:Testing performed by : [address] [address] Creatinine 0.70 0.60 - 1.10 mg/dL MARY JANE Comment:Testing performed by : [address] [address] Glucose 148 70 - 199 mg/dL MARY [...] was last revised 2017. Testing performed by: [address] [address] Calcium 9.6 8.5 - 10.3 mg/dL MARY JANE Comment:Testing performed by : [address] [address] Blood 08/02/2021 3:27 AM CDT 08/02/2021 3:50 AM CDT us Prince Varela MD LAB BLOOD ORDERABLE S Final Result [id number] [address] [facility] Department of Laboratories [place], [place] [id number] * (ABNORMAL) CBC with auto differential (08/02/2021 3:27 AM CDT) [facility] Signature WBC 13.1(H) 3.8 - 9.9 K/cumm MARY JANE Comment:Testing performed by : [address], [address] Hgb 12.4 11.9 - 15.5 g/dL MARY JANE Comment:Testing performed by : [address], [address] Hct 39.4 35.6 - 45.5 % MARY JANE Comment:Testing performed by : [address], [address] Plt 298 150 - 400 K/cumm MARY JANE Comment:Testing performed by : [address], [address] MPV 9.7 9.1 - 12.3 fL MARY JANE Comment:Testing performed by : [address], [address] RBC 4.33 3.90 - 5.20 M/cumm MARY JANE Comment:Testing performed by : [address], [address] MCV 91.0 81.3 - 96.4 fL MARY JANE Comment:Testing performed by : [address], [address] MCH 28.6 27.1 - 33.3 pg MARY JANE Comment:Testing performed by : [address], [address] MCHC 31.5(L) 32.3 - 35.7 g/dL MARY JANE Comment:Testing performed by : [address], [address] RDW CV 14.0 11.1 - 14.9 % MARY JANE Comment:Testing performed by : [address], [address] RDW SD 47.2 35.7 - 48.1 fL MARY JANE Comment:Testing performed by : [address], [address] NRBC abs 0.00 0.00 - 0.01 K/cumm MARY JANE Comment:Testing performed by : [facility], [address] [place] [address]., [address] Blood 08/02/2021 3:27 AM CDT 08/02/2021 3:50 AM CDT Prince Varela MD LAB BLOOD ORDERABLE S Final Result Performing Organization Address [facility] Co de Phone Number [address] [place] [address] * POCT glucose (08/01/2021 9:56 PM CDT) Glucose, POC 138 70 - 199 mg/dL MARY JANE Comment:Testing performed by : [address] [address] Glucose comment 1 Use This Result MARY JANE Comment:Testing performed by : [address] [address] Blood 08/01/2021 9:56 PM CDT 08/01/2021 9:56 PM CDT Result [facility] Prince Varela MD LAB POCT ORDERABLES - DEVICE Final Result Performing Organization Address [facility] de Phone Number [address] [place] [address] * POCT glucose (08/01/2021 6:04 PM CDT) Glucose, POC 88 70 - 199 mg/dL MARY JANE Comment:Testing performed by : [address] [address] Blood 08/01/2021 6:04 PM CDT 08/01/2021 6:04 PM CDT Prince Varela MD LAB POCT ORDERABLES - DEVICE Final Result Performing Organization Address [facility]/ZIP Co de Phone Number [address] [place] [address] * CT Abdomen Pelvis W Contrast (08/01/2021 [...] PM T: ??08/01/2021 3:08 PM Report ID: [id number] Reading Location: ??[id number] Procedure Note ShelbieNoe, DO - 08/01/2021 EXAM [...] Noe Morfin M.D. JS: SHANNON Report ID: [id number] Reading Location: [id number] [facility] IMG CT PROCEDURES Final Result * (ABNORMAL) Urine culture Urine (08/01/2021 12:56 PM CDT) Report Final Report: Greater than or equal to 100,000 colonies/mL of Escherichia coli (.) MARY JANE PHAM Comment:Testing performed by : [facility], [address] [place]., [address] Organism ESCHERICHIA COLI MARY JANE Urine 08/01/2021 12:5 6 PM CDT 08/01/2021 3:21 PM CDT Narrative MARY JANE - 08/03/2021 12:52 PM CDT Urine culture reflexed based upon urinalysis results. Testing performed by [facility] Microbiology Laboratory ([phone]) Organism Antibiotic Method Susceptibility Escherichia coli Ampicillin [...] GENERAL ORDE RABLES Final Result MARY JANE [address] [facility] Department [place] [address] * (ABNORMAL) Urinalysis, microscopic only (08/01/2021 12:56 PM CDT) WBC, ur >50(A) 0 - 5 /HPF MARY JANE PHAM Comment:Testing performed by : [facility], [address] [place] [address]., [address] RBC, ur >50(A) 0 - 2 /HPF MARY JANE Comment:Testing performed by : [address] [address] Epithelial cells, squamous, ur 21-50(A) 0 - 5 /HPF MARY JANE Comment: Suggestive of contamination. Consider recollection by clean catch. Testing performed by: [address] [address] Bacteria, ur Trace(A) MARY JANE Comment:Testing performed by : [address] [address] Yeast, ur 3+(A) MARY JANE Comment:Testing performed by : [address] [address] Mucous, ur Present(A) MARY JANE Comment:Testing performed by : [address] [address] Culture Reflex Comment Reflex to urine culture will be performed. MARY JANE Comment:Testing performed by : [address] [address] Urine 08/01/2021 12:5 6 PM CDT 08/01/2021 12:58 PM CDT [facility] LAB URINE ORDERABLES Final Resu lt MARY JANE [address] [facility] Department of Laboratories [place], [place] [id number] * (ABNORMAL) Urinalysis reflex to microscopic and culture Urine (08/01/2021 12:56 PM CDT) Color, ur Yellow Yellow MARY JANE Comment:Testing performed by : [address] [address] Clarity, ur Cloudy(A) Clear MARY JANE Comment:Testing performed by : [address] [address] Specific gravity, ur 1.011 1.003 - 1.030 MARY JANE Comment:Testing performed by : [address] [address] pH, urine 6.0 MARY JANE Comment:Testing performed by : [place] [address], [place]., [address] Protein, ur ql 1+(A) Negative MARY JANE Comment:Testing performed by : [address], [place]., [address] Glucose, ur ql Negative Negative MARY JANE Comment:Testing performed by : [address], [place]., [address] Ketones, ur Negative Negative MARY JANE Comment:Testing performed by : [address], [place]., [address] Bilirubin, ur Negative Negative MARY JANE Comment:Testing performed by : [address], [place]., [address] Blood, ur 3+(A) Negative MARY JANE Comment:Testing performed by : [address], [place]., [address] Urobilinogen, ur <2.0 <2.0 mg/dL MARY JANE Comment:Testing performed by : [address], [place]., [address] Nitrite, ur Negative Negative MARY JANE Comment:Testing performed by : [address], [place]., [address] Leukocyte esterase, ur 4+(A) Negative MARY JANE Comment:Testing performed by : [address], [place]., [address] UA reflex comment Reflex to microscopic UA will be performed. MARY JANE Comment:Testing performed by : [address], [place]., [address] Urine 08/01/2021 12:5 6 PM CDT 08/01/2021 [...] for uric acid stone formation. Source: [place] [employer]. Last revised 05-04-2017 us [facility] LAB MICROBIOLOGY - GENERAL ORDE RABLES Final Result Performing Organization Address [facility]/ZIP Co de Phone Number MARY JANE [address] [facility] Department [place] [place] [address] * eGFR (08/01/2021 12:40 PM CDT) [facility] eGFR 96 mL/min/1. 73 m2 MARY [...] last reviewed 2021. Testing performed by: [facility], [address] [place] [address]., [address] Blood 08/01/2021 12:4 0 PM CDT 08/01/2021 12:42 PM CDT Rosa [facility] LAB BLOOD ORDERABLES Final Resu lt Performing Organization Address City[facility]/ZIP Co de Phone Number MARY JANE [address] [facility] Department [place] [address] * (ABNORMAL) Differential, auto (08/01/2021 12:40 PM CDT) Neutrophil abs 9.2(H) 1.7 - 6.5 K/cumm MARY JANE Comment:Testing performed by : [address] [address] Imm gran abs 0.0 0.0 - 0.1 K/cumm MARY JANE Comment:Testing performed by : [address] [address] Lymphocyte abs 2.7 0.8 - 3.3 K/cumm MARY JANE Comment:Testing performed by : [address] [address] Monocyte abs 1.0(H) 0.2 - 0.8 K/cumm MARY JANE Comment:Testing performed by : [address] [address] Eosinophil abs 0.3 0.0 - 0.5 K/cumm MARY JANE Comment:Testing performed by : [address] [address] Basophil abs 0.0 0.0 - 0.1 K/cumm [facility] Comment:Testing performed by : [address] [address] Neutrophil pct 69.5 % [facility] Comment: Interpretive Data Percent cell count reference ranges are not reported, since discordance with absolute values may lead to misinterpretation of CBC data. Current Interpretive Data was last revised on 2017. Testing performed by: [address] [address] Imm gran pct 0.3 % [facility] Comment: Interpretive Data Percent cell count reference ranges are not reported, since discordance with absolute values may lead to misinterpretation of CBC data. Current Interpretive Data was last revised on 2017. Testing performed by: [address] [address] Lymphocyte pct 20.0 % [facility] Comment: Interpretive Data Percent cell count reference ranges are not reported, since discordance with absolute values may lead to misinterpretation of CBC data. Current Interpretive Data was last revised on 2017. Testing performed by: [address] [address] Monocyte pct 7.8 % MARY JANE Comment: Interpretive Data Percent cell count reference ranges are not reported, since discordance with absolute values may lead to misinterpretation of CBC data. Current Interpretive Data was last revised on 2017. Testing performed by: [address] [address] Eosinophil pct 2.1 % MARY JANE Comment: Interpretive Data Percent cell count reference ranges are not reported, since discordance with absolute values may lead to misinterpretation of CBC data. Current Interpretive Data was last revised on 2017. Testing performed by: [address] [address] Basophil pct 0.3 % MARY JANE Comment: Interpretive Data Percent cell count reference ranges are not reported, since discordance with absolute values may lead to misinterpretation of CBC data. Current Interpretive Data was last revised on 2017. Testing performed by: [address] [address] Blood 08/01/2021 12:4 0 PM CDT 08/01/2021 12:42 PM CDT Rosa Cruz PA LAB BLOOD ORDERABLES Final Resu lt Performing Organization Address City/[facility]/ZIP Co de Phone Number [place] [address] [facility] [place] [address] * Lipase (08/01/2021 12:40 PM CDT) Lipase 18 10 - 99 Units/L MARY JANE Comment:Testing performed by : [address] [address] Blood 08/01/2021 12:4 0 PM CDT 08/01/2021 12:42 PM CDT Rosa Singer PA LAB BLOOD ORDERABLES Final Resu lt [place] [address] Department [place] [address] * (ABNORMAL) Comprehensive metabolic panel (08/01/2021 12:40 PM CDT) [facility] Sodium 137 135 - 145 mmol/L MARY JANE Comment:Testing performed by : [address], [place]., [address] Potassium, pl 4.8 3.3 - 4.9 mmol/L MARY JANE Comment:Testing performed by : [address], [place]., [address] Chloride 99 97 - 110 mmol/L MARY JANE Comment:Testing performed by : [address], [place]., [address] CO2 30 22 - 32 mmol/L MARY JANE Comment:Testing performed by : [address], [place]., [address] Anion gap 8 2 - 15 mmol/L MARY JANE Comment:Testing performed by : [address] [address] BUN 18 8 - 25 mg/dL MARY JANE Comment:Testing performed by : [address], [place]., [address] Creatinine 0.70 0.60 - 1.10 mg/dL MARY JANE Comment:Testing performed by : [address], [place]., [address] Glucose 224(H) 70 - 199 mg/dL MARY [...] was last revised 2017. Testing performed by: [address], [place]., [address] Calcium 10.4(H) 8.5 - 10.3 mg/dL MARY JANE PHAM Comment:Testing performed by : [address] [address] Bilirubin, total 0.6 0.1 - 1.2 mg/dL MARY JANE PHAM Comment:Testing performed by : [address] [address] Protein, pl 8.8(H) 6.5 - 8.5 g/dL MARY JANE PHAM Comment:Testing performed by : [address] [address] Albumin 4.1 3.5 - 5.0 g/dL MARY JANE PHAM Comment:Testing performed by : [address] [address] Alk phos 91 40 - 130 Units/L MARY JANE PHAM Comment:Testing performed by : [address] [address] ALT 21 7 - 45 Units/L MARY JANE Comment:Testing performed by : [address] [address] AST 24 10 - 45 Units/L MARY JANE Comment: HEMOLYZED: Hemolysis interferes with the above test. Testing performed by: [address] [address] Blood 08/01/2021 12:4 0 PM CDT 08/01/2021 12:42 PM CDT us Rosa MCKEON LAB BLOOD ORDERABLES Final Resu lt MARY JANE [address] [facility] Department [place] [address] * (ABNORMAL) CBC with auto differential (08/01/2021 12:40 PM CDT) Pathologist [facility] WBC 13.3(H) 3.8 - 9.9 K/cumm MARY JANE PHAM Comment:Testing performed by : [address] [address] Hgb 13.9 11.9 - 15.5 g/dL MARY JANE PHAM Comment:Testing performed by : [address] [address] Hct 44.3 35.6 - 45.5 % MARY JANE Comment:Testing performed by : [address], [address] Plt 297 150 - 400 K/cumm MARY JANE Comment:Testing performed by : [address] [address] MPV 9.0(L) 9.1 - 12.3 fL MARY JANE Comment:Testing performed by : [address], [address] RBC 4.82 3.90 - 5.20 M/cumm MARY JANE Comment:Testing performed by : [address], [address] MCV 91.9 81.3 - 96.4 fL MARY JANE Comment:Testing performed by : [address], [address] MCH 28.8 27.1 - 33.3 pg MARY JANE Comment:Testing performed by : [address], [address] MCHC 31.4(L) 32.3 - 35.7 g/dL MARY JANE Comment:Testing performed by : [address], [address] RDW CV 14.1 11.1 - 14.9 % MARY JANE Comment:Testing performed by : [address], [address] RDW SD 47.6 35.7 - 48.1 fL MARY JANE Comment:Testing performed by : [address], [address] NRBC abs 0.00 0.00 - 0.01 K/cumm MARY JANE Comment:Testing performed by : [address], [address] Blood 08/01/2021 12:4 0 PM CDT 08/01/2021 12:42 PM CDT us Rosa MCKEON LAB BLOOD ORDERABLES Final Resu lt MARY JANE PHAM [address] [facility] Department [place] [address] documented in this encounter Visit Diagnoses Diagnosis [...] Call MD for each episode of hypoglycemia. PIPING DESIGN SPECIALIST STATES GLUTOSE-15 CONTAINS GLUCOSE 40% W/W (50% [...] 1 dose 2328 (Given - Provider: Flower Villa, NURIS) ertapenem (INVanz) 1,000 mg in sodium [...] (Unheld by Provider - Provider: Jazmine Raymond [facility]) exemestane (AROMASIN) tablet 25 mg *REQUEST PATIENT [...] Diabetes Mellitus 1010 (Not Given - Provider: Rciarda Albert RN - Reason: Order parameters not [...] Indications: bronchitis 2327 (Given - Provider: Flower iVlla RN) nitrofurantoin monohydrate (MACROBID) capsule 100 mg [...] Flower Villa, RN) 2139 (Given - Provider: lFower Villa, RN) rOPINIRole (REQUIP) tablet 5 mg [...] Call MD for each episode of hypoglycemia. PIPING DESIGN SPECIALIST STATES GLUTOSE-15 CONTAINS GLUCOSE 40% W/W (50% [...] Pain 0049 (Given - Provider: Fritz Cohen, NURIS)1327 (Given - Provider: Ricarda Albert, NURIS) HYDROcodone-acetaminoph [...] Call MD for each episode of hypoglycemia. PIPING DESIGN SPECIALIST STATES GLUTOSE-15 CONTAINS GLUCOSE 40% W/W (50% [...] 08/01/2021 documented in this encounter Care Teams Filter Plant Supervisor Relationship Specialty Start Date End Date Justen Gale MD 2 [facility] [address] [place] [address] PCP - General 10/09/17 Liu Jerez MD Consulting Physician Gastroenterology 07/28/17 [place] [address] [facility] [address] [place] [address] Consulting Physician Pulmonary Disease 08/03/17 [place] [address] [place] [address] [address] [place] [address] Medical Oncologist/Steward/Stewardess Club Car Medical Oncology 10/23/17 [place] [address] [address] Surgeon Orthopedic Surgery 10/23/17 [place] [address] [facility] [address] [place] [address] Consulting Physician Pain Management 10/23/17 [place] [address] [address] Referring Physician General Surgery 01/26/18 [place] [address] [address] Consulting Physician Neurology 01/26/18 documented as of this encounter
--- OUTSIDE RECORDS SUMMARY | 2024-04-26 09:20 | XMS_ITS | Encounter Summary ---
Author Organization [facility] Address [address] [place] [address] Phone Care Team Providers Care Access Specialist Name Role Phone Liu Jerez MD Unavailable [phone] Albert Corbin MD Unavailable Justen Gale MD Primary Care Provider Khris Arthur MD Unavailable [phone] Ko Melendez MD Unavailable John Paul Moyer MD Unavailable Annel Rod MD Unavailable Anali MARSHALL MD, Carlos M. 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 I called the ER and spoke Denita LAWLER and let her know the patient is very SOB and it was a sudden onset. Patient is sitting out in her car d/t being too scared of all the people in the ER. I let the nurse know and she stated they would go out and get her. Jo LAWLER 1536 documented in this encounter Plan of Treatment Not on file documented as of this encounter Visit Diagnoses Not on filedocumented in this encounter Care Teams Access Specialist Relationship Specialty Start Date End Date Justen Gale MD 2 [facility] [address] [place] [address] PCP - General 10/09/17 Liu Jerez MD Consulting Physician Gastroenterology 07/28/17 [place] [address] [facility] [address] [place] [address] Consulting Physician Pulmonary Disease 08/03/17 Khris Arthur MD 4921 [facility] [address] [place] [address] Medical Oncologist/Training Associate Medical Oncology 10/23/17 [place] [address] [facility] [address] [place] [address] Surgeon Orthopedic Surgery 10/23/17 [place] [address] [address] Consulting Physician Pain Management 10/23/17 [place] [address] [facility] [address] [place] [address] Referring Physician General Surgery 01/26/18 [place] [address] [facility] [address] [place] [address] Consulting Physician Neurology 01/26/18 documented as of this encounter
--- OUTSIDE RECORDS SUMMARY | 2024-04-26 09:20 | XMS_ITS | Encounter Summary ---
Author Organization [facility] Address [address] [place] [address] Phone Care Team Providers Care Research Associate Name Role Phone Liu Jerez MD Unavailable [phone] Albert Corbin MD Unavailable Justen Gale MD Primary Care Provider Khris Arthur MD Unavailable [phone] Ko Melendez MD Unavailable John Paul Moyer MD Unavailable Annel Rod MD Unavailable Anali MARSHALL MD, Carlos M. 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 [address] [place] [address] Consulting Physician Pulmonary Disease 08/03/17 Khris Arthur MD 4921 [facility] [address] [place] [address] Medical Oncologist/Chief Creative Officer Medical Oncology 10/23/[address] [place] [address] [facility] [address] [place] [address] Surgeon Orthopedic Surgery 10/23/17 [place] [address] [address] Consulting Physician Pain Management 10/23/17 [place] [address] [address] Referring Physician General Surgery 01/26/18 [place] [address] [facility] [address] [place] [address] Consulting Physician Neurology 01/26/18 documented as of this encounter
--- OUTSIDE RECORDS SUMMARY | 2024-04-26 09:20 | XMS_ITS | Encounter Summary ---
Author Organization [facility] Address [address] [place] [address] Phone Care Team Providers Care Psychiatric Mental Health Nurse Name Role Phone Liu Jerez MD Unavailable Albert Corbin MD Unavailable Justen Gale MD Primary Care Provider Khris Arthur MD Unavailable [phone] Ko Melendez MD Unavailable John Paul Moyer MD Unavailable Annel Rod MD Unavailable Anali MARSHALL MD, Carlos M. 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 Gender Identity Not on file Sexual Orientation [...] on filedocumented in this encounter Care Teams Psychiatric Mental Health Nurse Relationship Specialty Start Date End Date Justen Gale MD [address] [address] PCP - General 10/09/17 Liu Jerez MD Consulting Physician Gastroenterology 07/28/17 [place] [address] [facility] [address] [place] [address] Consulting Physician Pulmonary Disease 08/03/17 Khris Arthur MD 4921 [facility] [address] [place] [address] Medical Oncologist/Thread Milling Machine Set Up Operator Medical Oncology 10/23/17 [place] [address] [facility] [address] [place] [address] Surgeon Orthopedic Surgery 10/23/17 [place] [address] [address] Consulting Physician Pain Management 10/23/17 [place] [address] [address] Referring Physician General Surgery 01/26/18 [place] [address] [facility] [address] [place] [address] Consulting Physician Neurology 01/26/18 documented as of this encounter
--- OUTSIDE RECORDS SUMMARY | 2024-04-26 09:20 | XMS_ITS | Encounter Summary ---
Author Organization [facility] Address [address] [place] [address] Phone Care Team Providers Care Solid Tire Finisher Name Role Phone Liu Jerez MD Unavailable Albert Corbin MD Unavailable Justen Gale MD Primary Care Provider Khris Arthur MD Unavailable [phone] Ko Melendez MD Unavailable [phone] John Paul Moyer MD Unavailable Annel Rod MD Unavailable Anali MARSHALL MD, Carlos M. 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 Gender Identity Not on file Sexual Orientation Not on file documented as of this encounter Plan of Treatment Not on file documented as of this encounter Visit Diagnoses Not on filedocumented in this encounter Care Teams Solid Tire Finisher Relationship Specialty Start Date End Date Justen Gale MD 2 [facility] [address] [place] [address] PCP - General 10/09/17 Liu Jerez MD Consulting Physician Gastroenterology 07/28/17 [place] [address] [facility] [address] [place] [address] Consulting Physician Pulmonary Disease 08/03/17 Khris Arthur MD 4921 [facility] [address] [place] [address] Medical Oncologist/Carbon Sequestration Plant Engineer Medical Oncology 10/23/17 [place] [address] [facility] [address] [place] [address] Surgeon Orthopedic Surgery 10/23/17 [place] [address] [facility] [address] [place] [address] Consulting Physician Pain Management 10/23/17 [place] [address] [facility] [address] [place] [address] Referring Physician General Surgery 01/26/18 [place] [address] [facility] [address] [place] [address] Consulting Physician Neurology 01/26/18 documented as of this encounter
--- OUTSIDE RECORDS SUMMARY | 2024-04-26 09:20 | XMS_ITS | Encounter Summary ---
Author Organization [facility] Address [address] [place] [address] Phone Care Team Providers Care Warehouse Delivery Driver Name Role Phone Liu Jerez MD Unavailable [phone] Albert Corbin MD Unavailable Justen Gale MD Primary Care Provider Khris Arthur MD Unavailable [phone] Ko Melendez MD Unavailable [phone] John Paul Moyer MD Unavailable Annel Rod MD Unavailable Anali MARSHALL MD, Carlos M. 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 ----- Message from Radha Mcgrath RN sent at 02/04/2021 12:48 PM CDT ----- Geovanna from [facility] called wanting to know how long can the pt hold her Xarelto for her tooth extraction. [phone] documented in this encounter Plan of Treatment Not on file documented as of this encounter Visit Diagnoses Not on filedocumented in this encounter Care Teams Warehouse Delivery Driver Relationship Specialty Start Date End Date Justen Gale MD [address] [address] PCP - General 10/09/17 Liu Jerez MD Consulting Physician Gastroenterology 07/28/17 [place] [address] [address] [place] [address] Consulting Physician Pulmonary Disease 08/03/17 Khris Arthur MD 4921 [facility] [address] [place] [address] Medical Oncologist/Peoplesoft Financials Consultant Medical Oncology 10/23/17 [place] [address] [facility] [address] [place] [address] Surgeon Orthopedic Surgery 10/23/17 [place] [address] [facility] [address] [place] [address] Consulting Physician Pain Management 10/23/17 [place] [address] [facility] [address] [place] [address] Referring Physician General Surgery 01/26/18 [place] [address] [facility] [address] [place] [address] Consulting Physician Neurology 01/26/18 documented as of this encounter
--- OUTSIDE RECORDS SUMMARY | 2024-04-26 09:21 | XMS_ITS | Encounter Summary ---
Author Organization [facility] Address [address] [place] [address] Phone Care Team Providers Care [facility] Name Role Phone Liu Jerez MD Unavailable [phone] Albert Corbin MD Unavailable [phone] Justen Gale MD Primary Care Provider [phone] Khris Arthur MD Unavailable [phone] oK Melendez MD Unavailable John Paul Moyer MD Unavailable [phone] Annel Rod MD Unavailable Anali MARSHALL MD, Carlos M. 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 She is agreeable to this and will get this done today at [facility]. Phone is [phone], fax is [phone] ----- Message from Khris Arthur MD sent at 11/19/2020 9:55 PM CDT ----- Can we get xrays of bilateral sacroiliac joint ----- Message ----- From: Interface, Radiology Results In Sent: 11/19/2020 4:01 PM CDT To: Khris Arthur MD documented in this encounter Plan of Treatment Not on file documented as of this encounter Visit Diagnoses Not on filedocumented in this encounter Care Teams [facility] Relationship Specialty Start Date End Date Justen Gale MD 2 [place] [address] PCP - General 10/09/17 Liu Jerez MD Consulting Physician Gastroenterology 07/28/17 [place] [address] [facility] [address] [place] [address] Consulting Physician Pulmonary Disease 08/03/17 Khris Arthur MD 4921 [facility] [address] [place] [address] Medical Oncologist/Labor Expediter Medical Oncology 10/23/17 [place] [address] [facility] [address] [place] [address] Surgeon Orthopedic Surgery 10/23/17 [place] [address] [facility] [address] [place] [address] Consulting Physician Pain Management 10/23/17 [place] [address] [facility] [address] [place] [address] Referring Physician General Surgery 01/26/18 [place] [address] [facility] [address] [place] [address] Consulting Physician Neurology 01/26/18 documented as of this encounter
--- OUTSIDE RECORDS SUMMARY | 2024-04-26 09:21 | XMS_ITS | Encounter Summary ---
Author Organization [facility] Address [address] [place] [address] Phone Care Team Providers Care Physician Asst Name Role Phone Liu Jerez MD Unavailable Albert Corbin MD Unavailable Justen Gale MD Primary Care Provider [phone] Khris Arthur MD Unavailable [phone] Ko Melendez MD Unavailable [phone] John Paul Moyer MD Unavailable [phone] Annel Rod MD Unavailable Anali MARSHALL MD, Carlos M. 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 Gender Identity Not on file Sexual [...] 01/05/2021 documented in this encounter Care Teams Physician Asst Relationship Specialty Start Date End Date Justen Gale MD 2 [facility] [address] [place] [address] PCP - General 10/09/17 Liu Jerez MD Consulting Physician Gastroenterology 07/28/17 [place] [address] [facility] [address] [place] [address] Consulting Physician Pulmonary Disease 08/03/17 Khris Arthur MD 4921 [facility] [address] [place] [address] Medical Oncologist/Apprentice Instrument Technician Medical Oncology 10/23/17 [place] [address] [facility] [address] [place] [address] Surgeon Orthopedic Surgery 10/23/17 [place] [address] [facility] [address] [place] [address] Consulting Physician Pain Management 10/23/17 [place] [address] [facility] [address] [place] [address] Referring Physician General Surgery 01/26/18 [place] [address] [facility] [address] [place] [address] Consulting Physician Neurology 01/26/18 documented as of this encounter
--- OUTSIDE RECORDS SUMMARY | 2024-04-26 09:21 | XMS_ITS | Encounter Summary ---
Author Organization [facility] Healthcare Address [address] [place] [address] Care Team Providers Care Auto Glass Worker Name Role Phone Liu Jerez MD Unavailable [phone] Albert Corbin MD Unavailable [phone] Justen Gale MD Primary Care Provider [phone] Khris Arthur MD Unavailable Ko Melendez MD [...] bone scan whole body Khris Arthur MD 39[address] [facility] [address] [place] [address] Phone: tel: fax: [address] [address] Referral ID Status Reason Start Date Expiration Date Visits Re quested Visits Authorized [id number] Closed 11/13/2020 12/28/2020 2 1 Reason for Visit * Diagnostic Imaging (Routine) - Closed Specialty Diagnoses / Procedures Referred By Elyssa t Referred To Contact Diagnoses Malignant neoplasm of upper-inner quadrant of left breast in female, estrogen receptor positive (HCC) Procedures NM bone scan whole body Khris Arthur MD [address] [address] Phone: tel: fax: [address] [address] Referral ID Status Reason Start Date Expiration Date Visits Re quested Visits Authorized [id number] Closed 11/13/2020 12/28/2020 2 1 Encounter Details Date Type Department Care Team (Latest Contact Info) Description 11/19/2020 10:09 AM CDT - 11/19/2020 11:59 PM CDT Hospital Encounter 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 [...] 11/19/2020 documented in this encounter Care Teams Auto Glass Worker Relationship Specialty Start Date End Date Justen Gale MD 2 [facility] [address] [place] [address] PCP - General 10/09/17 Liu Jerez MD Consulting Physician Gastroenterology 07/28/17 [place] [address] [facility] [address] [place] [address] Consulting Physician Pulmonary Disease 08/03/17 [place] [address] [place] [address] [address] [place] [address] Medical Oncologist/Sharepoint Web Developer Medical Oncology 10/23/17 [place] [address] [facility] [address] [place] [address] Surgeon Orthopedic Surgery 10/23/17 [place] [address] [address] Consulting Physician Pain Management 10/23/17 [place] [address] [facility] [address] [place] [address] Referring Physician General Surgery 01/26/18 [place] [address] [facility] [address] [place] [address] Consulting Physician Neurology 01/26/18 documented as of this encounter
--- OUTSIDE RECORDS SUMMARY | 2024-04-26 09:21 | XMS_ITS | Encounter Summary ---
Author Organization [facility] Address [address] [place] [address] Phone Care Team Providers Care Roll Plugger Name Role Phone Liu Jerez MD Unavailable Albert Corbin MD Unavailable Justen Gale MD Primary Care Provider Khris Arthur MD Unavailable [phone] Ko Melendez MD Unavailable John Paul Moyer MD Unavailable Annel Rod MD Unavailable Anali MARSHALL MD, Carlos M. 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 Gender Identity Not on file Sexual Orientation [...] filedocumented in this encounter Care Teams Roll Plugger Relationship Specialty Start Date End Date Justen Gale MD 2 [facility] [address] [place] [address] PCP - General 10/09/17 Liu Jerez MD Consulting Physician Gastroenterology 07/28/17 [place] [address] [facility] [address] [place] [address] Consulting Physician Pulmonary Disease 08/03/17 Khris Arthur MD 4921 [facility] [address] [place] [address] Medical Oncologist/Financial Engineer Medical Oncology 10/23/17 [place] [address] [facility] [address] [place] [address] Surgeon Orthopedic Surgery 10/23/17 [place] [address] [address] Consulting Physician Pain Management 10/23/17 [place] [address] [facility] [address] [place] [address] Referring Physician General Surgery 01/26/18 [place] [address] [facility] [address] [place] [address] Consulting Physician Neurology 01/26/18 documented as of this encounter
--- OUTSIDE RECORDS SUMMARY | 2024-04-26 09:21 | XMS_ITS | Encounter Summary ---
Author Organization [facility] Address [address] [place] [address] Phone Care Team Providers Care Test Grader Name Role Phone Liu Jerez MD Unavailable [phone] Albert Corbin MD Unavailable Justen Gale MD Primary Care Provider Khris Arthur MD Unavailable [phone] Ko Melendez MD Unavailable John Paul Moyer MD Unavailable Annel Rod MD Unavailable Anali MARSHALL MD, Carlos M. Unavailable [phone] Reason for Visit * Oncology (Routine) - Closed Specialty Diagnoses / Procedures Referred By Contac t Referred To Contact Oncology Diagnoses Malignant neoplasm of overlapping sites of left female breast, unspecified estrogen receptor status (HCC) Procedures ONCBCN ARM DRAW APPT ONC LAB ONLY Khris Arthur MD [address] [facility] [address] [place] [address] Phone: tel: fax: Khris Arthur MD 49[address] [facility] [address] [place] [address] Phone: tel: fax: Referral ID Status Reason Start Date Expiration Date V isits Requested Visits Authorized [id number] Closed Specialty Services Required 07/23/2020 04/23/2024 99 99 Encounter Details Date Type Department Care Team (Late st Contact Info) Description 11/10/2020 11:30 AM CDT Lab [facility] Oncology [address] [place] [address] [place] [address] Malignant neoplasm of upper-inner quadrant of left [...] on file 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 Gender Identity Not on file Sexual [...] MARY JANE ANGELES Comment:Testing performed by : [facility], [address] [place] [phone] Potassium, pl 4.9 3.3 - 4.9 mmol/L CERNER [facility] Comment:Testing performed by : [facility], [address] [place] [phone] Chloride 100 97 - 110 mmol/L [facility] Comment:Testing performed by : [facility], [address] [place] [phone] CO2 26 22 - 32 mmol/L [facility] Comment:Testing performed by : [facility], [address] [place] [phone] Anion gap 7 2 - 15 mmol/L [facility]J Comment:Testing performed by : [facility], [address] [place] [phone] BUN 24 8 - 25 mg/dL [facility] Comment:Testing performed by : [facility], [address] [place] [phone] Creatinine 0.69 0.60 - 1.10 mg/dL [facility] Comment:Testing performed by : [facility], [address] [place] [phone] Glucose 270(H) 70 - 199 mg/dL CERNER [...] was last revised 2017. Testing performed by: [facility], [address] [place] [phone] Calcium 10.4(H) 8.5 - 10.3 mg/dL [facility] Comment:Testing performed by : [facility], [address] [place] [phone] Bilirubin, total 0.4 0.1 - 1.2 mg/dL [facility] Comment:Testing performed by : [facility], [address] [place] [phone] Protein, pl 8.8(H) 6.5 - 8.5 g/dL [facility] Comment:Testing performed by : [facility], [address] [place] [phone] Albumin 4.1 3.5 - 5.0 g/dL [facility] Comment:Testing performed by : [facility], [address] [place] [phone] Alk phos 88 40 - 130 Units/L [facility] Comment:Testing performed by : [facility], [address] [place] [phone] ALT 15 7 - 45 Units/L [facility] Comment:Testing performed by : [facility], [address] [place] [phone] AST 12 10 - 45 Units/L [facility] Comment:Testing performed by : [facility], [address] [place] [phone] Blood specimen (specimen) 11/10/2020 11:24 AM CDT 11/10/2020 11:25 AM CDT Khris Arthur MD LAB BLOOD ORDERABLES Final Result [facility] [place] [address] * Vitamin D 25 hydroxy (11/10/2020 11:24 AM CDT) Vitamin D 25-OH 32 30 - 80 ng/mL [facility] Blood specimen (specimen) 11/10/2020 11:24 AM CDT 11/10/2020 11:51 AM CDT Khris Arthur MD LAB BLOOD ORDERABLES Final Result [facility] [place] [address] documented in this encounter Visit Diagnoses Diagnosis Malignant neoplasm of upper-inner quadrant of left breast in female, estrogen receptor positive (HCC) documented in this encounter Care Teams Test Grader Relationship Specialty Start Date End Date Justen Gale MD 2 [facility] [address] [place] [address] PCP - General 10/09/17 Liu Jerez MD Consulting Physician Gastroenterology 07/28/17 [place] [address] [facility] [address] [place] [address] Consulting Physician Pulmonary Disease 08/03/17 Khris Arthur MD 49[address] [facility] [address] [place] [address] Medical Oncologist/General Dentist/Owner Medical Oncology 10/23/17 [place] [address] [facility] [address] [place] [address] Surgeon Orthopedic Surgery 10/23/17 [place] [address] [facility] [address] [place] [address] Consulting Physician Pain Management 10/23/17 [place] [address] [facility] [address] [place] [address] Referring Physician General Surgery 01/26/18 [place] [address] [facility] [address] [place] [address] Consulting Physician Neurology 01/26/18 documented as of this encounter
--- OUTSIDE RECORDS SUMMARY | 2024-04-26 09:21 | XMS_ITS | Encounter Summary ---
Author Organization [facility] Address [address] [place] [address] Phone Care Team Providers Care Rebeamer Name Role Phone Liu Jerez MD Unavailable [phone] Albert Corbin MD Unavailable Justen Gale MD Primary Care Provider Khris Arthur MD Unavailable [phone] Ko Melendez MD Unavailable [phone] John Paul Moyer MD Unavailable Annel Rod MD Unavailable Anali MARSHALL MD, Carlos M. 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 Gender Identity Not on file Sexual [...] COVID: Recovered 02/10/2022 02/10/2022 06/10/2022 3:05 AM ABRASIVE WORKER Exposure, COVID-19 Comment:Added automatically based on COVID19 lab answers indicating exposure risk 02/11/2022 02/11/2022 02/15/2022 9:06 AM C DT COVID: Suspected 05/14/2022 05/14/2022 05/14/2022 10:41 AM ABRASIVE WORKER COVID: Suspected 06/07/2022 06/07/2022 06/07/2022 12:28 PM ABRASIVE WORKER COVID: Suspected 06/21/2022 06/21/2022 06/21/2022 2:12 AM ABRASIVE WORKER COVID: Suspected 10/05/2022 10/05/2022 10/05/2022 7:40 PM CDT COVID: Suspected 01/04/2024 01/04/2024 01/04/2024 10:30 PM CDT COVID: Suspected 02/14/2024 02/14/2024 02/15/2024 12:36 AM CDT documented as of this encounter Care Teams Rebeamer Relationship Specialty Start Date End Date Justen Gale MD 2 [facility] [address] [place] [address] PCP - General 10/09/17 Liu Jerez MD Consulting Physician Gastroenterology 07/28/[address] [place] [address] [facility] [address] [place] [address] Consulting Physician Pulmonary Disease 08/03/17 Khris Arthur MD 4921 [facility] [address] [place] [address] Medical Oncologist/Wood Buffer Medical Oncology 10/23/[address] [place] [address] [facility] [address] [place] [address] Surgeon Orthopedic Surgery 10/23/17 [place] [address] [facility] [address] [place] [address] Consulting Physician Pain Management 10/23/[address] [place] [address] [facility] [address] [place] [address] Referring Physician General Surgery 01/26/18 [place] [address] [facility] [address] [place] [address] Consulting Physician Neurology 01/26/18 documented as of this encounter
--- OUTSIDE RECORDS SUMMARY | 2024-04-26 09:21 | XMS_ITS | Encounter Summary ---
Author Organization [facility] Address [address] [place] [address] Phone Care Team Providers Care Online Marketing Manager Name Role Phone Liu Jerez MD Unavailable [phone] Albert Corbin MD Unavailable [phone] Justen Gale MD Primary Care Provider Khirs Arthur MD Unavailable [phone] Ko Melendez MD Unavailable John Paul Moyer MD Unavailable Annel Rod MD Unavailable Anali MARSHALL MD, Carlos M. 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 Gender Identity Not on file Sexual Orientation Not on file documented as of this encounter Plan of Treatment Not on file documented as of this encounter Visit Diagnoses Diagnosis Malignant neoplasm of upper-inner quadrant of left breast in female, estrogen receptor positive (HCC)- Primary Bone pain Disorder of bone and cartilage, unspecified documented in this encounter Care Teams Online Marketing Manager Relationship Specialty Start Date End Date Justen Gale MD [address] [address] PCP - General 10/09/17 Liu Jerez MD Consulting Physician Gastroenterology 07/28/17 [place] [address] [facility] [address] [place] [address] Consulting Physician Pulmonary Disease 08/03/17 Khris Arthur MD 4921 [facility] [address] [place], [place] [address] Medical Oncologist/Bit And Shank Department Supervisor Medical Oncology 10/23/17 [place] [address] [facility] [address] [place] [address] Surgeon Orthopedic Surgery 10/23/17 [place] [address] [address] Consulting Physician Pain Management 10/23/17 [place] [address] [address] Referring Physician General Surgery 01/26/18 [place] [address] [facility] [address] [place] [address] Consulting Physician Neurology 01/26/18 documented as of this encounter
--- OUTSIDE RECORDS SUMMARY | 2024-04-26 09:21 | XMS_ITS | Encounter Summary ---
Author Organization [facility] Address [address] [place] [address] Phone Care Team Providers Care Peanut Roaster Name Role Phone Liu Jerez MD Unavailable Albert Corbin MD Unavailable Justen Gale MD Primary Care Provider Khris Arthur MD Unavailable [phone] Ko Melendez MD Unavailable [phone] John Paul Moyer MD Unavailable Annel Rod MD Unavailable Anali MARSHALL MD, Carlos M. 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 Gender Identity Not on file Sexual Orientation [...] on filedocumented in this encounter Care Teams Peanut Roaster Relationship Specialty Start Date End Date Justen Gale MD [address] [address] PCP - General 10/09/17 Liu Jerez MD Consulting Physician Gastroenterology 07/28/17 [place] [address] [facility] [address] [place] [address] Consulting Physician Pulmonary Disease 08/03/17 Khris Arthur MD [address] [facility] [address] [place] [address] Medical Oncologist/Orchid Superintendent Medical Oncology 10/23/17 [place] [address] [facility] [address] [place] [address] Surgeon Orthopedic Surgery 10/23/17 [place] [address] [facility] [address] [place] [address] Consulting Physician Pain Management 10/23/17 [place] [address] [facility] [address] [place] [address] Referring Physician General Surgery 01/26/18 [place] [address] [facility] [address] [place] [address] Consulting Physician Neurology 01/26/18 documented as of this encounter
--- OUTSIDE RECORDS SUMMARY | 2024-04-26 09:21 | XMS_ITS | Encounter Summary ---
Author Organization [facility] Address [address] [place] [address] Phone Care Team Providers Care Speech Therapist Name Role Phone Liu Jerez MD Unavailable Albert Corbin MD Unavailable Justen Gale MD Primary Care Provider Khris Arthur MD Unavailable [phone] Ko Melendez MD Unavailable John Paul Moyer MD Unavailable Annel Rod MD Unavailable Anali MARSHALL MD, Carlos M. 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 No answer, left message for her to call the office. UPDATE: Called [facility] and they stated the pt has not had her x-ray and they did not receive the order. Order faxed again [phone] documented in this encounter Plan of Treatment Not on file documented as of this encounter Visit Diagnoses Not on filedocumented in this encounter Care Teams Speech Therapist Relationship Specialty Start Date End Date Justen Gale MD [address] [address] PCP - General 10/09/17 Liu Jerez MD Consulting Physician Gastroenterology 07/28/17 [place] [address] [facility] [address] [place] [address] Consulting Physician Pulmonary Disease 08/03/17 Khris Arthur MD 4921 [facility] [address] [place] [address] Medical Oncologist/Orchid Worker Medical Oncology 10/23/17 [place] [address] [facility] [address] [place] [address] Surgeon Orthopedic Surgery 10/23/17 [place] [address] [facility] [address] [place] [address] Consulting Physician Pain Management 10/23/17 [place] [address] [facility] [address] [place] [address] Referring Physician General Surgery 01/26/18 [place] [address] [facility] [address] [place] [address] Consulting Physician Neurology 01/26/18 documented as of this encounter
--- OUTSIDE RECORDS SUMMARY | 2024-04-26 09:21 | XMS_ITS | Encounter Summary ---
Author Organization [facility] Address [address] [place] [address] Phone Care Team Providers Care Master Fisher Name Role Phone Liu Jerez MD Unavailable Albert Corbin MD Unavailable [phone] Justen Gale MD Primary Care Provider Khris Arthur MD Unavailable [phone] Ko Melendez MD Unavailable John Paul Moyer MD Unavailable Annel Rod MD Unavailable Anali MARSHALL MD, Carlos M. 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 Gender Identity Not on file Sexual Orientation Not on file documented as of this encounter Plan of Treatment Not on file documented as of this encounter Visit Diagnoses Not on filedocumented in this encounter Care Teams Master Fisher Relationship Specialty Start Date End Date Justen Gale MD [address] [address] PCP - General 10/09/17 Liu Jerez MD Consulting Physician Gastroenterology 07/28/17 [place] [address] [id number] [place], [place] [id number] Consulting Physician Pulmonary Disease 08/03/17 Khris Arthur MD 4921 [facility] [address] [place] [address] Medical Oncologist/Zoo Veterinarian Medical Oncology 10/23/17 [place] [address] [facility] [address] [place] [address] Surgeon Orthopedic Surgery 10/23/17 [place] [address] [facility] [address] [place] [address] Consulting Physician Pain Management 10/23/17 [place] [address] [email or web address] [address] [place] [address] Referring Physician General Surgery 01/26/18 [place] [address] [email or web address] [address] [place] [address] Consulting Physician Neurology 01/26/18 documented as of this encounter
--- OUTSIDE RECORDS SUMMARY | 2024-04-26 09:21 | XMS_ITS | Encounter Summary ---
Author Organization [facility] Address [address] [place] [address] Phone Care Team Providers Care String Cutter Name Role Phone Liu Jerez MD Unavailable [phone] Albert Corbin MD Unavailable Justen Gale MD Primary Care Provider Khris Arthur MD Unavailable [phone] Ko Melendez MD Unavailable John Paul Moyer MD Unavailable Annel Rod MD Unavailable Anali MARSHALL MD, Carlos M. 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 Comment:Testing performed by : [facility], [address] [place] [phone] Potassium, pl 4.9 3.3 - 4.9 mmol/L [facility]ERPUJA [facility]J Comment:Testing performed by : [address] [address] Chloride 99 97 - 110 mmol/L [facility]ER[facility]JA [facility]J Comment:Testing performed by : [address] [address] CO2 30 22 - 32 mmol/L [facility]J Comment:Testing performed by : [address] [address] Anion gap 6 2 - 15 mmol/L [facility]ER[facility]JA [facility]J Comment:Testing performed by : [address] [address] BUN 18 8 - 25 mg/dL [facility]ERPUJA [facility]J Comment:Testing performed by : [address] [address] Creatinine 0.82 0.60 - 1.10 mg/dL [facility]ER[facility]J Comment:Testing performed by : [address] [address] Glucose 158 70 - 199 mg/dL CERPUJA [...] was last revised 2017. Testing performed by: [facility], [address] [place] [phone] Calcium 9.9 8.5 - 10.3 mg/dL CERNER [facility] Comment:Testing performed by : [facility], [address] [place] [phone] Bilirubin, total 0.8 0.1 - 1.2 mg/dL CERNER [facility]J Comment:Testing performed by : [facility], [address] [place] [phone] Protein, pl 7.9 6.5 - 8.5 g/dL CERNER [facility]J Comment:Testing performed by : [facility], [address] [place] [phone] Albumin 4.1 3.5 - 5.0 g/dL CERNER [facility]J Comment:Testing performed by : [address] [address] Alk phos 87 40 - 130 Units/L CERNER BJ Comment:Testing performed by : [address] [address] ALT 16 7 - 45 Units/L CERNER BJ Comment:Testing performed by : [facility], [address] [place] [phone] AST 15 10 - 45 Units/L CERNER BJ Comment:Testing performed by : [facility], [address] [place] [phone] Blood 09/07/2021 1:18 PM CDT 09/07/2021 1:20 PM CDT us Khris Arthur MD LAB BLOOD ORDERABLES Final Result [facility] [place] [address] documented in this encounter Visit Diagnoses Diagnosis Malignant neoplasm of upper-inner quadrant of left breast in female, estrogen receptor positive (HCC)- Primary documented in this encounter Care Teams String Cutter Relationship Specialty Start Date End Date Justen Gale MD 2 [facility] [address] [place] [address] PCP - General 10/09/17 Liu Jerez MD Consulting Physician Gastroenterology 07/28/17 [place] [address] [facility] [address] [place] [address] Consulting Physician Pulmonary Disease 08/03/17 Khris Arthur MD 4921 [facility] [address] [place] [address] Medical Oncologist/Ticket Collector Medical Oncology 10/23/17 [place] [address] [facility] [address] [place] [address] Surgeon Orthopedic Surgery 10/23/17 [place] [address] [facility] [address] [place] [address] Consulting Physician Pain Management 10/23/17 [place] [address] [facility] [address] [place] [address] Referring Physician General Surgery 01/26/18 [place] [address] [facility] [address] [place] [address] Consulting Physician Neurology 01/26/18 documented as of this encounter
--- OUTSIDE RECORDS SUMMARY | 2024-04-26 09:21 | XMS_ITS | Encounter Summary ---
Author Organization [facility] Address [address] [place] [address] Phone Care Team Providers Care Clerical Clerk Name Role Phone Liu Jerez MD Unavailable [phone] Albert Corbin MD Unavailable Justen Gale MD Primary Care Provider [phone] Khris Arthur MD Unavailable [phone] Ko Melendez MD Unavailable John Paul Moyer MD Unavailable Annel Rod MD Unavailable Anali MARSHALL MD, Carlos M. Unavailable [phone] Reason for Visit * Reason Comments Breast Cancer * Diagnostic Imaging (Routine) - Canceled Specialty Diagnoses / Procedures Referred By Contac t Referred To Contact Diagnoses Osteopenia, unspecified location Procedures Dexa Axial Skeleton Bone Density 1 or 2 Site Khris Arthur MD 3[address] [facility] [address] [place] [address] Phone: tel: fax: [facility] (All Locations) Referral ID Status Reason Start Date Expiration Date V isits Requested Visits Authorized [id number] Canceled 03/12/2020 04/11/2021 1 1 Encounter Details Date Type Department Care Team (Latest Contact Info) Description 11/10/2020 10:50 AM CDT Clinical Support [facility] [place] [id number] 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 ?? Based on machine cross-calibration [...] by the International Society of Clinical Densitometry. [id number] Khris Arthur MD [facility] DXA PROCEDURES F inal Result documented in this encounter Visit Diagnoses Diagnosis Osteopenia, unspecified location Postmenopausal Asymptomatic postmenopausal status (age-related) (natural) Other specified disorders of bone density and structure, left thigh penitentiary (current) use of anticoagulants Long-term (current) use of anticoagulants Use 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 inhibitors documented in this encounter Care Teams Clerical Clerk Relationship Specialty Start Date End Date Justen Gale MD [address] [address] PCP - General 10/09/17 Liu Jerez MD Consulting Physician Gastroenterology 07/28/17 [place] [address] [facility] [address] [place] [address] Consulting Physician Pulmonary Disease 08/03/17 Khris Arthur MD 4921 [facility] [address] [place] [address] Medical Oncologist/Supervisor Dry Cell Assembly Medical Oncology 10/23/17 [place] [address] [facility] [address] [place] [address] Surgeon Orthopedic Surgery 10/23/17 [place] [address] [facility] [address] [place] [address] Consulting Physician Pain Management 10/23/17 [place] [address] [facility] [address] [place] [address] Referring Physician General Surgery 01/26/18 [place] [address] [facility] [address] [place] [address] Consulting Physician Neurology 01/26/18 documented as of this encounter
--- OUTSIDE RECORDS SUMMARY | 2024-04-26 09:21 | XMS_ITS | Encounter Summary ---
Author Organization [facility] Address [address] [place] [address] Phone Care Team Providers Care Rehabilitation Specialist Name Role Phone Liu Jerez MD Unavailable Albert Corbin MD Unavailable Justen Gale MD Primary Care Provider Khris Arthur MD Unavailable [phone] Ko Melendez MD Unavailable John Paul Moyer MD Unavailable Annel Rod MD Unavailable Anali MARSHALL MD, Carlos M. 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 Patient Information Name: ??MOHSEN SALAZARTye Gender: ??F : ??1955 (Age: 65) Tissue: ??FISH Only Leukemic Blood Visit Information Hospital #: ? [id number] Facility: ? WUUT Service: ? WUPT Location: ? [facility] Patient Type: ? W[facility]AMP ? Specimen Information: Culture #: ??[id number] Date Collected: ??10/29/2020 Date Accessioned: ??11/04/2020 Date [...] and Signed Out By Mary Esquivel, PhD, [facility] Date Reported: ??11/05/2020 Director Surgical, Cytogenomics and Molecular Pathology Office Spec Professor, Division of Laboratory and Genomic Medicine Heaven Carrillo MD LAB GENETIC TESTING Final Re sult documented in this encounter Visit Diagnoses Not on filedocumented in this encounter Care Teams Rehabilitation Specialist Relationship Specialty Start Date End Date Justen Gale MD 2 [facility] [address] [place] [address] PCP - General 10/09/17 Liu Jerez MD Consulting Physician Gastroenterology 07/28/17 [place] [address] [facility] [address] [place] [address] Consulting Physician Pulmonary Disease 08/03/17 Khris Arthur MD 4921 [facility] [address] [place] [address] Medical Oncologist/Computer Engineering Technician Medical Oncology 10/23/17 [place] [address] [facility] [address] [place] [address] Surgeon Orthopedic Surgery 10/23/17 [place] [address] [facility] [address] [place] [address] Consulting Physician Pain Management 10/23/17 [place] [address] [facility] [address] [place] [address] Referring Physician General Surgery 01/26/18 [place] [address] [facility] [address] [place] [address] Consulting Physician Neurology 01/26/18 documented as of this encounter
--- OUTSIDE RECORDS SUMMARY | 2024-04-26 09:21 | XMS_ITS | Encounter Summary ---
Author Organization [facility] Address [address] [place] [address] Phone Care Team Providers Care Delivery Route Driver Name Role Phone Liu Jerez MD Unavailable [phone] Albert Corbin MD Unavailable Justen Gale MD Primary Care Provider Khris Arthur MD Unavailable [phone] Ko Melendez MD Unavailable John Paul Moyer MD Unavailable Annel Rod MD Unavailable Anali MARSHALL MD, Carlos M. Unavailable [phone] Reason for Visit * Reason Onset Date Comments Returning Call 11/17/2020 Encounter Details Date Type Department Care Team (Late st Contact Info) Description 11/17/2020 Telephone [facility] Oncology [address] 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 [address] [place] [address] Consulting Physician Pulmonary Disease 08/03/17 Khris Arthur MD 4921 [facility] [address] [place] [address] Medical Oncologist/Manager Registration Medical Oncology 10/23/17 [place] [address] [facility] [address] [place] [address] Surgeon Orthopedic Surgery 10/23/17 [place] [address] [facility] [address] [place] [address] Consulting Physician Pain Management 10/23/17 [place] [address] [facility] [address] [place] [address] Referring Physician General Surgery 01/26/18 [place] [address] [facility] [place] [address] [place] [address] Consulting Physician Neurology 01/26/18 documented as of this encounter
--- OUTSIDE RECORDS SUMMARY | 2024-04-26 09:21 | XMS_ITS | Encounter Summary ---
Author Organization [facility] Address [address] [place] [address] Phone Care Team Providers Care Computer Typesetter Keyliner Name Role Phone Liu Jerez MD Unavailable [phone] Albert Corbin MD Unavailable Justen Gale MD Primary Care Provider Khris Arthur MD Unavailable [phone] Ko Melendez MD Unavailable [phone] John Paul Moyer MD Unavailable Annel Rod MD Unavailable Anali MARSHALL MD, Carlos M. 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 Gender Identity Not on file Sexual Orientation [...] filedocumented in this encounter Care Teams Computer Typesetter Keyliner Relationship Specialty Start Date End Date Justen Gale MD [address] [address] PCP - General 10/09/17 Liu Jerez MD Consulting Physician Gastroenterology 07/28/17 [place] [address] [facility] [address] [place] [address] Consulting Physician Pulmonary Disease 08/03/17 Khris Arthur MD 4921 [facility] [address] [place] [address] Medical Oncologist/Wire Strander Medical Oncology 10/23/17 [place] [address] [facility] [address] [place] [address] Surgeon Orthopedic Surgery 10/23/17 [place] [address] [address] Consulting Physician Pain Management 10/23/17 [place] [address] [facility] [address] [place] [address] Referring Physician General Surgery 01/26/18 [place] [address] [facility] [address] [place] [address] Consulting Physician Neurology 01/26/18 documented as of this encounter
--- OUTSIDE RECORDS SUMMARY | 2024-04-26 09:21 | XMS_ITS | Encounter Summary ---
Author Organization [facility] Address [address] [place] [address] Phone Care Team Providers Care Wig Stylist Name Role Phone Liu Jerez MD Unavailable [phone] Albert Corbin MD Unavailable [phone] Justen Gale MD Primary Care Provider Khris Arthur MD Unavailable [phone] Ko Melendez MD Unavailable John Paul Moyer MD Unavailable Annel Rod MD Unavailable Anali MARSHALL MD, Carlos M. 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, [address] [place] [phone] Potassium, pl 5.1(H) 3.3 - 4.9 mmol/L CERNER [facility]J Comment: Hemolyzed; result may be falsely elevated. Testing performed by: [facility], [address] [place] [phone] Chloride 99 97 - 110 mmol/L [facility] Comment:Testing performed by : [address] [address] CO2 29 22 - 32 mmol/L C[facility]ER [facility]J Comment:Testing performed by : [facility], [address] [place] [phone] Anion gap 9 2 - 15 mmol/L C[facility]ER [facility]J Comment:Testing performed by : [facility], [address] [place] [phone] BUN 13 8 - 25 mg/dL C[facility]ER [facility]J Comment:Testing performed by : [facility], [address] [place] [address] Creatinine 0.72 0.60 - 1.10 mg/dL C[facility]ER [facility]J Comment:Testing performed by : [facility], [address] [place] [phone] Glucose 165 70 - 199 mg/dL CERNER [...] was last revised 2017. Testing performed by: [place] [id number] Calcium 9.5 8.5 - 10.3 mg/dL C[facility]ER [facility]J Comment:Testing performed by : [address] Bilirubin, total 0.4 0.1 - 1.2 mg/dL [facility]ER [facility]J Comment:Testing performed by : [facility], [address] [place], [place] [phone] Protein, pl 8.6(H) 6.5 - 8.5 g/dL [facility]ER [facility] Comment:Testing performed by : [place] [id number] Albumin 4.0 3.5 - 5.0 g/dL [facility]ER [facility]J Comment:Testing performed by : [address] [address] Alk phos 100 40 - 130 Units/L C[facility]ER BJ Comment:Testing performed by : [place] [id number] ALT 21 7 - 45 Units/L C[facility]ER BJ Comment:Testing performed by : [place] [id number] AST 27 10 - 45 Units/L C[facility]ER BJ Comment: Hemolyzed; result may be falsely elevated. Testing performed by: [address] [address] Blood 01/05/2021 4:20 PM CDT 01/05/2021 4:25 PM CDT Khris Arthur MD LAB BLOOD ORDERABLES Final Result Performing Organization Address City/State/[facility] Co de Phone Number MARY JANE BJ One [facility] Department [place] [address] documented in this encounter Visit Diagnoses Diagnosis Malignant neoplasm of upper-inner quadrant of left breast in female, estrogen receptor positive (HCC)- Primary documented in this encounter Care Teams Wig Stylist Relationship Specialty Start Date End Date Justen Gale MD 2 [facility] [address] [place] [address] PCP - General 10/09/17 Liu Jerez MD Consulting Physician Gastroenterology 07/28/17 [place] [address] [facility] [address] [place] [address] Consulting Physician Pulmonary Disease 08/03/17 Khris Arthur MD 4921 [facility] [address] [place] [address] Medical Oncologist/Business Writer Medical Oncology 10/23/17 [place] [address] [facility] [address] [place] [address] Surgeon Orthopedic Surgery 10/23/17 [place] [address] [facility] [address] [place] [address] Consulting Physician Pain Management 10/23/17 [place] [address] [facility] [address] [place] [address] Referring Physician General Surgery 01/26/18 [place] [address] [facility] [address] [place] [address] Consulting Physician Neurology 01/26/18 documented as of this encounter
--- OUTSIDE RECORDS SUMMARY | 2024-04-26 09:21 | XMS_ITS | Encounter Summary ---
Author Organization [facility] Address [address] [place] [address] Phone Care Team Providers Care Director Compliance Name Role Phone Liu Jerez MD Unavailable [phone] Alebrt Corbin MD Unavailable [phone] Justen Gale MD Primary Care Provider Khris Arthur MD Unavailable [phone] Ko Melendez MD Unavailable [phone] John Paul Moyer MD Unavailable [phone] Annel Rod MD Unavailable Anali MARSHALL MD, Carlos M. Unavailable Reason for Referral * (Routine) - Closed Specialty Diagnoses / Procedures Referred By Contac t Referred To Contact Diagnoses Malignant neoplasm of upper-inner quadrant of left breast in female, estrogen receptor positive (HCC) Procedures Miscellaneous DME [facility] 7th [place] [address] [place] [address] Phone: tel: fax: Referral ID Status Reason Start Date Expiration Date Visits Re quested Visits Authorized [id number] Closed 11/10/2020 12/10/2021 1 1 * Diagnostic Imaging (Routine) - Closed Specialty Diagnoses / Procedures Referred By Elyssa t Referred To Contact Diagnoses Malignant neoplasm of upper-inner quadrant of left breast in female, estrogen receptor positive (HCC) Procedures NM bone scan whole body Khris Arthur MD [address] [facility] [address] [place] [address] Phone: tel: fax: [address] [address] Referral ID Status Reason Start Date Expiration Date Visits Re quested Visits Authorized [id number] Closed 11/13/2020 12/28/2020 2 1 Reason for Visit * Oncology (Routine) - Closed Specialty Diagnoses / Procedures Referred By Elyssa benavides Referred To Contact Oncology Diagnoses Malignant neoplasm of overlapping sites of left female breast, unspecified estrogen receptor status (HCC) Justen Gale MD [address] [address] Phone: tel: fax: Khris Arthur MD Phone: tel: fax: Referral ID Status Reason Start Date Expiration Date V isits Requested Visits Authorized [id number] Closed Specialty Services Required 10/18/2019 04/23/2024 99 99 Encounter Details Date Type Department Care Team (Late st Contact Info) Description 11/10/2020 1:00 PM CDT Office Visit [facility] [address] 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 [...] 11/10/2020 documented in this encounter Care Teams Director Compliance Relationship Specialty Start Date End Date Justen Gale MD 2 [facility] [address] [place] [address] PCP - General 10/09/17 Liu Jerez MD Consulting Physician Gastroenterology 07/28/17 [place] [address] [facility] [address] [place] [address] Consulting Physician Pulmonary Disease 08/03/17 [place] [address] [place] [address] [address] [place] [address] Medical Oncologist/Prop Attendant Medical Oncology 10/23/17 [place] [address] [facility] [address] [place] [address] Surgeon Orthopedic Surgery 10/23/17 [place] [address] [address] Consulting Physician Pain Management 10/23/17 [place] [address] [facility] 301 [place] [address] Referring Physician General Surgery 01/26/18 [place] [address] [facility] [address] [place] [address] Consulting Physician Neurology 01/26/18 documented as of this encounter
--- OUTSIDE RECORDS SUMMARY | 2024-04-26 09:21 | XMS_ITS | Encounter Summary ---
Author Organization [facility] Address [address] [place] [address] Phone Care Team Providers Care Military Administrative Technician Name Role Phone Liu Jerez MD Unavailable Albert Corbin MD Unavailable Justen Gale MD Primary Care Provider [phone] Khris Arthur MD Unavailable [phone] Ko Melendez MD Unavailable John Paul Moyer MD Unavailable Annel Rod MD Unavailable Anali MARSHALL MD, Carlos M. Unavailable Reason for Visit * Episode Based Medications (Routine) - Closed Specialty Diagnoses / Procedures Referred By Contac t Referred To Contact Oncology Diagnoses Malignant neoplasm of upper-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, unspecified estrogen receptor status (HCC) exterminator helper termite (current) use 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 inhibitors Procedures WA ZOLEDRONIC ACID 1MG Khris Arthur MD [address] [facility] [address] [place] [address] Phone: tel: fax: [facility] Oncology [address] [place] [address] 7th [place] [address] Phone: tel: Referral ID Status Reason Start Date Expiration Date Visits Re quested Visits Authorized [id number] Closed 10/17/2019 04/23/2022 1 6 Encounter Details Date Type Department Care Team (Late st Contact Info) Description 01/05/2021 4:00 PM CDT Infusion [facility] Oncology [address] [place] [address] 7th [place] [address] Malignant neoplasm of upper-inner quadrant of left breast in female, estrogen receptor positive (CMS/HCC) (HCC) (Primary Dx); exterminator helper termite (current) use 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 inhibitors; Malignant neoplasm [...] on file 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 Gender Identity Not on file Sexual [...] 01/05/2021 4:00 PM CDT Oncology Nursing Note [facility] Karly Marques is a [...] female breast, unspecified estrogen receptor status (HCC) custodial (current) use 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 inhibitors documented in this encounter Administered Medications Inactive Administered Medications - up to 3 most recent administrations Medication Order MAR Action Action Date Dose Rate Site sodium chloride 0.9% infusion 20 mL/hr, intravenous, Continuous, Starting on Mon01/05/21 at 1730, For 8 hours, Normal Saline 250ml @ TKO during Treatment.Indications:custodial (current) use 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 inhibitors,Malignant neoplasm of [...] MD/NILSON If Ca++ < 7.0 , Notify MDIndications:custodial (current) use 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 inhibitors,Malignant neoplasm of [...] 01/05/2021 documented in this encounter Care Teams Military Administrative Technician Relationship Specialty Start Date End Date Justen Gale MD 2 [facility] [address] [place] [address] PCP - General 10/09/17 Liu Jerez MD Consulting Physician Gastroenterology 07/28/17 [place] [address] [facility] [address] [place] [address] Consulting Physician Pulmonary Disease 08/03/17 Khris Arthur MD [address] [place] [address] [address] [place], [place] [id number] Medical Oncologist/News Reporter Medical Oncology 10/23/17 [place] [address] [facility] [address] [place] [address] Surgeon Orthopedic Surgery 10/23/17 [place] [address] [address] Consulting Physician Pain Management 10/23/17 [place] [address] [address] Referring Physician General Surgery 01/26/18 [place] [address] [address] [facility] [address] [place] [address] Consulting Physician Neurology 01/26/18 documented as of this encounter
--- OUTSIDE RECORDS SUMMARY | 2024-04-26 09:21 | XMS_ITS | Encounter Summary ---
Author Organization [facility] Address [address] [place] [address] Phone Care Team Providers Care Geography Head Name Role Phone Liu Jerez MD Unavailable Albert Corbin MD Unavailable Justen Gale MD Primary Care Provider Khris Arthur MD Unavailable [phone] Ko Melendez MD Unavailable [phone] John Paul Moyer MD Unavailable Annel Rod MD Unavailable Anali MARSHALL MD, Carlos M. 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 [facility] asking for call back. documented in this encounter Plan of Treatment Not on file documented as of this encounter Visit Diagnoses Not on filedocumented in this encounter Care Teams Geography Head Relationship Specialty Start Date End Date Justen Gale MD 2 [facility] [address] [place] [address] PCP - General 10/09/17 Liu Jerez MD Consulting Physician Gastroenterology 07/28/17 [place] [address] [address] [address] [place] [address] Consulting Physician Pulmonary Disease 08/03/17 Khris Arthur MD [address] [facility] [address] [place] [address] Medical Oncologist/Consultant Electronics Medical Oncology 10/23/17 [place] [address] [facility] [address] [place] [address] Surgeon Orthopedic Surgery 10/23/17 [place] [address] [address] Consulting Physician Pain Management 10/23/17 [place] [address] [address] Referring Physician General Surgery 01/26/18 [place] [address] [facility] [address] [place] [address] Consulting Physician Neurology 01/26/18 documented as of this encounter
--- OUTSIDE RECORDS SUMMARY | 2024-04-26 09:22 | XMS_ITS | Encounter Summary ---
Author Organization [facility] Address [address] [place] [address] Phone Care Team Providers Care Standpipe Tender Name Role Phone Liu Jerez MD Unavailable [phone] Albert Corbin MD Unavailable Justen Gale MD Primary Care Provider Khris Arthur MD Unavailable [phone] Ko Melendez MD Unavailable John Paul [place]oyer MD Unavailable Annel Rod MD Unavailable Anali MARSHALL MD, Carlos M. 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 [address] [place] [address] Consulting Physician Pulmonary Disease 08/03/17 Khris Arthur MD [address] [facility] [address] [place] [address] Medical Oncologist/Java Systems Analyst Medical Oncology 10/23/[address] [place] [address] [facility] [address] [place] [address] Surgeon Orthopedic Surgery 10/23/17 [place] [address] [address] Consulting Physician Pain Management 10/23/[address] [place] [address] [facility] [address] [place] [address] Referring Physician General Surgery 01/26/18 [place] [address] [facility] [address] [place] [address] Consulting Physician Neurology 01/26/18 documented as of this encounter
--- OUTSIDE RECORDS SUMMARY | 2024-04-26 09:22 | XMS_ITS | Encounter Summary ---
Author Organization [facility] Address [address] [place] [address] Phone Care Team Providers Care Mechanical Cad Designer Name Role Phone Liu Jerez MD Unavailable Albert Corbin MD Unavailable [phone] Justen Gale MD Primary Care Provider Khris Arthur MD Unavailable [phone] Ko Melendez MD Unavailable John Paul Moyer MD Unavailable Annel Rod MD Unavailable Anali MARSHALL MD, Carlos M. Unavailable [phone] Encounter Details Date Type Department Care Team (Late st Contact Info) Description 08/06/2020 Orders Only [facility] Oncology [address] 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 Gender Identity Not on file Sexual Orientation [...] as of this encounter Care Teams Mechanical Cad Designer Relationship Specialty Start Date End Date Justen Gale MD 2 [facility] [address] [place] [address] PCP - General 10/09/17 Liu Jerez MD Consulting Physician Gastroenterology 07/28/17 [place] [address] [facility] [address] [place] [address] Consulting Physician Pulmonary Disease 08/03/17 Khris Arthur MD [address] [facility] [address] [place] [address] Medical Oncologist/Ladies Suit Operator Medical Oncology 10/23/17 [place] [address] [facility] [address] [place] [address] Surgeon Orthopedic Surgery 10/23/17 [place] [address] [facility] [address] [place] [address] Consulting Physician Pain Management 10/23/17 [place] [address] [facility] [address] [place] [address] Referring Physician General Surgery 01/26/18 [place] [address] [facility] [address] [place] [address] Consulting Physician Neurology 01/26/18 documented as of this encounter
--- OUTSIDE RECORDS SUMMARY | 2024-04-26 09:22 | XMS_ITS | Encounter Summary ---
Author Organization [facility] Address [address] [place] [address] Phone Care Team Providers Care Continuous Miner Operator Helper Name Role Phone Liu Jerez MD Unavailable Albert Corbin MD Unavailable Justen Gale MD Primary Care Provider Khris Arthur MD Unavailable [phone] Ko Melendez MD Unavailable John Paul [place] MD Unavailable Annel Rod MD Unavailable Anali MARSHALL MD, Carlos M. Unavailable [phone] Reason for Referral * Diagnostic Lab (Routine) - Closed Specialty Diagnoses / Procedures Referred By Contac t Referred To Contact Lab Diagnoses Leukocytosis, unspecified type Procedures Cytogenetics/Genomics Heaven Carrillo MD [address] [place] [address] Phone: tel: fax: Referral ID Status Reason Start Date Expiration Date Visits Re quested Visits Authorized [id number] Closed 10/26/2020 11/25/2021 1 1 Encounter Details Date Type Department Care Team (Late st Contact Info) Description 10/26/2020 Orders Only [facility] Hematology [address] [place] [address] 7th Floor [address] [place] [address] Lisa Rudd RN Leukocytosis, unspecified type (Primary [...] on file 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 Gender Identity Not on file Sexual Orientation Not on file documented as of this encounter Plan of Treatment Scheduled Orders Name Type Priority Associated Diagnoses Orde r Schedule Cytogenetics/Genomic s Lab Routine Leukocytosis, unspecified type Expected: 10/29/2020, Expires: 10/26/2021 documented as of this encounter Results * CBC with auto differential (10/29/2020 1:51 PM CDT) WBC 9.8 3.8 - 9.8 K/cumm [facility] Comment:Testing performed by : [facility], [address] [place] [phone] Hgb 12.8 12.1 - 15.1 g/dL [facility] Comment:Testing performed by : [facility], [address] [place] [phone] Hct 38.8 36.1 - 44.3 % [facility] Comment:Testing performed by : [facility], [address] [place] [phone] Plt 290 140 - 440 K/cumm [facility] Comment:Testing performed by : [facility], [address] [place] [phone] MPV 7.4 6.8 - 10.4 fL [facility] Comment:Testing performed by : [facility], [address] [place] [address] RBC 4.32 3.90 - 5.00 M/cumm [facility] Comment:Testing performed by : [facility], [address] [place], [place] [phone] MCV 89.7 80.0 - 97.6 fL [facility] Comment:Testing performed by : [facility], [address] [place] [phone] MCH 29.6 26.7 - 33.7 pg [facility] Comment:Testing performed by : [facility], [address] [place], [place] [phone] MCHC 32.9 32.7 - 35.5 g/dL [facility] Comment:Testing performed by : [facility], [address] [place], [place] [phone] RDW CV 14.2 11.8 - 14.6 % [facility] Comment:Testing performed by : [facility], [address] [place] [phone] NRBC abs 0.00 0.00 - 0.01 K/cumm [facility] Comment:Testing performed by : [facility], [address] [place] [phone] Blood specimen (specimen) 10/29/2020 1:51 PM CDT 10/29/2020 2:03 PM CDT Heaven Carrlilo MD LAB BLOOD ORDERABLES Final R esult [facility] [place] [address] documented in this encounter Visit Diagnoses Diagnosis Leukocytosis, unspecified type- Primary documented in this encounter Care Teams Continuous Miner Operator Helper Relationship Specialty Start Date End Date Justen Gale MD [address] [address] PCP - General 10/09/17 Liu Jerez MD Consulting Physician Gastroenterology 07/28/17 [place] [address] [facility][1] [address] [place] [address] Consulting Physician Pulmonary Disease 08/03/17 Khirs Arthur MD [address] [facility] [address] [place] [address] Medical Oncologist/Continuity Person Medical Oncology 10/23/17 [place] [address] [facility][1] [address] [place] [address] Surgeon Orthopedic Surgery 10/23/17 [place] [address] [facility][1] [address] [place] [address] Consulting Physician Pain Management 10/23/17 [place] [address] [facility][1] [address] [place] [address] Referring Physician General Surgery 01/26/18 [place] [address] [facility] [address] [place] [address] Consulting Physician Neurology 01/26/18 documented as of this encounter
--- OUTSIDE RECORDS SUMMARY | 2024-04-26 09:22 | XMS_ITS | Encounter Summary ---
Author Organization [facility] Address [address] [place] [address] Phone Care Team Providers Care Circus Laborer Name Role Phone Liu Jerez MD Unavailable Albert Corbin MD Unavailable Justen Gale MD Primary Care Provider Khris Arthur MD Unavailable [phone] Ko Melendez MD Unavailable [phone] John Paul [place] MD Unavailable Annel Rod MD Unavailable Anali MARSHALL MD, Carlos M. 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 Gender Identity Not on file Sexual [...] on filedocumented in this encounter Care Teams Circus Laborer Relationship Specialty Start Date End Date Justen Gale MD 2 [facility] [address] [place] [address] PCP - General 10/09/17 Liu Jerez MD Consulting Physician Gastroenterology 07/28/17 [place] [address] [facility] [address] [place] [address] Consulting Physician Pulmonary Disease 08/03/17 [place] [address] [place] [address] [address] [place] [address] Medical Oncologist/Oil Distributor Tender Medical Oncology 10/23/17 [place] [address] [facility] [address] [place] [address] Surgeon Orthopedic Surgery 10/23/17 [place] [address] [facility] [address] [place] [address] Consulting Physician Pain Management 10/23/17 [place] [address] [facility] [address] [place] [address] Referring Physician General Surgery 01/26/18 [place] [address] [facility] [address] [place] [address] Consulting Physician Neurology 01/26/18 documented as of this encounter
--- OUTSIDE RECORDS SUMMARY | 2024-04-26 09:22 | XMS_ITS | Encounter Summary ---
Author Organization [facility] Address [address] [place] [address] Phone Care Team Providers Care Nature Photographer Name Role Phone Liu Jerez MD Unavailable [phone] Albert Corbin MD Unavailable Justen Gale MD Primary Care Provider Khris Arthur MD Unavailable [phone] Ko Melendez MD Unavailable [phone] John Paul Moyer MD Unavailable [phone] Annel Rod MD Unavailable Anali MARSHALL MD, Carlos M. 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 Gender Identity Not on file Sexual [...] on filedocumented in this encounter Care Teams Nature Photographer Relationship Specialty Start Date End Date Justen Gale MD [address] [address] PCP - General 10/09/17 Liu Jerez MD Consulting Physician Gastroenterology 07/28/17 [place] [address] [facility] [address] [place] [address] Consulting Physician Pulmonary Disease 08/03/17 Khris Arthur MD 4921 [facility] [address] [place] [address] Medical Oncologist/Volleyball Coach Medical Oncology 10/23/17 [place] [address] [facility] [address] [place] [address] Surgeon Orthopedic Surgery 10/23/17 [place] [address] [address] Consulting Physician Pain Management 10/23/17 [place] [address] [address] Referring Physician General Surgery 01/26/18 [place] [address] [facility] [address] [place] [address] Consulting Physician Neurology 01/26/18 documented as of this encounter
--- OUTSIDE RECORDS SUMMARY | 2024-04-26 09:22 | XMS_ITS | Encounter Summary ---
Author Organization [facility] Address [address] [place] [address] Phone Care Team Providers Care Tumbler Plater Name Role Phone Liu Jerez MD Unavailable Albert Corbin MD Unavailable Justen Gale MD Primary Care Provider Khris Arthur MD Unavailable [phone] Ko Melendez MD Unavailable John Paul Moyer MD Unavailable Annel Rod MD Unavailable Anali MARSHALL MD, Carlos M. Unavailable [phone] Reason for Visit * Diagnostic Lab (Routine) - Closed Specialty Diagnoses / Procedures Referred By Contac t Referred To Contact Lab Diagnoses Leukocytosis, unspecified type Procedures Cytogenetics/Genomics Heaven Carrillo MD [address] [place] [address] Phone: tel: fax: Referral ID Status Reason Start Date Expiration Date Visits Re quested Visits Authorized [id number] Closed 10/26/2020 11/25/2021 1 1 Encounter Details Date Type Department Care Team (Late st Contact Info) Description 10/29/2020 2:00 PM CDT Lab [facility] Oncology [address] [facility] 7th [place] [address] [place] [address] Leukocytosis, unspecified type Social History Tobacco Use [...] on file 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 Gender Identity Not on file Sexual Orientation [...] K/cumm [facility] Comment:Testing performed by : [facility], [address] [place] [phone] Lymphocyte abs 2.3 1.2 - 3.3 K/cumm [facility] Comment:Testing performed by : [facility] [place] [facility], [address] [place] [phone] Monocyte abs 0.8 0.2 - 1.2 K/cumm [facility] Comment:Testing performed by : [facility] [place] [facility], [address] [place] [phone] Eosinophil abs 0.3 0.0 - 0.5 K/cumm [facility] Comment:Testing performed by : [facility], [address] [place] [phone] Basophil abs 0.1 0.0 - 0.2 K/cumm [facility] Comment:Testing performed by : [facility] [place] [facility], [address] [place] [phone] Neutrophil pct 64.4 % [facility] Comment: Interpretive Data Percent cell count reference ranges are not reported, since discordance with absolute values may lead to misinterpretation of CBC data. Current Interpretive Data was last revised on 2017. Testing performed by: [facility], [address] [place] [phone] Lymphocyte pct 23.8 % [facility] Comment: Interpretive Data Percent cell count reference ranges are not reported, since discordance with absolute values may lead to misinterpretation of CBC data. Current Interpretive Data was last revised on 2017. Testing performed by: [facility], [address] [place] [phone] Monocyte pct 8.1 % [facility] Comment:Testing performed by : [facility], [address] [place] [phone] Eosinophil pct 3.0 % [facility] Comment:Testing performed by : [facility], [address] [place] [phone] Basophil pct 0.7 % [facility] Comment:Testing performed by : [facility], [address] [place] [phone] Blood specimen (specimen) 10/29/2020 1:51 PM CDT 10/29/2020 2:03 PM CDT us Heaven Carrillo MD LAB BLOOD ORDERABLES Final R esult [facility] [place] [address] * CBC with auto differential (10/29/2020 1:51 PM CDT) WBC 9.8 3.8 - 9.8 K/cumm [facility] Comment:Testing performed by : [address] [address] Hgb 12.8 12.1 - 15.1 g/dL [facility] Comment:Testing performed by : [facility], [address] [place] [phone] Hct 38.8 36.1 - 44.3 % [facility] Comment:Testing performed by : [address] [address] Plt 290 140 - 440 K/cumm [facility] Comment:Testing performed by : [address] [address] MPV 7.4 6.8 - 10.4 fL [facility] Comment:Testing performed by : [address] [address] RBC 4.32 3.90 - 5.00 M/cumm [facility] Comment:Testing performed by : [address] [address] MCV 89.7 80.0 - 97.6 fL [facility] Comment:Testing performed by : [address] [address] MCH 29.6 26.7 - 33.7 pg [facility] Comment:Testing performed by : [address] [address] MCHC 32.9 32.7 - 35.5 g/dL [facility] Comment:Testing performed by : [facility], [address] [facility] [address] RDW CV 14.2 11.8 - 14.6 % [facility] Comment:Testing performed by : [facility], [address] [facility] [address] NRBC abs 0.00 0.00 - 0.01 K/cumm MARY JANE [facility] Comment:Testing performed by : [facility], [address] [facility] [address] Blood specimen (specimen) 10/29/2020 1:51 PM CDT 10/29/2020 2:03 PM CDT Heaven Carrillo MD LAB BLOOD ORDERABLES Final R esult [facility] Department [place] [address] documented in this encounter Visit Diagnoses Diagnosis Leukocytosis, unspecified type documented in this encounter Orders Lab Orders Without Results Count Last Ordered D ate First Ordered Date CYTOGENETICS AND GENOMICS 1 10/29/2020 documented in this encounter Care Teams Tumbler Plater Relationship Specialty Start Date End Date Justen Gale MD 2 [facility] [address] [place] [address] PCP - General 10/09/17 Liu Jerez MD Consulting Physician Gastroenterology 07/28/17 [place] [address] [facility] [address] [place] [address] Consulting Physician Pulmonary Disease 08/03/17 Khris Arthur MD 49[address] [facility] [address] [place] [address] Medical Oncologist/Bird Sitter Medical Oncology 10/23/17 [place] [address] [facility] [address] [place] [address] Surgeon Orthopedic Surgery 10/23/17 [place] [address] [address] Consulting Physician Pain Management 10/23/17 [place] [address] [address] Referring Physician General Surgery 01/26/18 [place] [address] [facility] [address] [place] [address] Consulting Physician Neurology 01/26/18 documented as of this encounter
--- OUTSIDE RECORDS SUMMARY | 2024-04-26 09:22 | XMS_ITS | Encounter Summary ---
Author Organization [facility] Address [address] [place] [address] Care Team Providers Care Cutting Inspector Name Role Phone Liu Jerez MD Unavailable [phone] Albert Corbin MD Unavailable [phone] Justen Gale MD Primary Care Provider [phone] Khris Arthur MD Unavailable [phone] Ko Melendez MD Unavailable John Paul Moyer MD Unavailable Annle Rod MD Unavailable Anali MARSHALL MD, Carlos M. 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 Gender Identity Not on file Sexual [...] on filedocumented in this encounter Care Teams Cutting Inspector Relationship Specialty Start Date End Date Justen Gale MD 2 [facility] [address] [place] [address] PCP - General 10/09/17 Liu Jerez MD Consulting Physician Gastroenterology 07/28/17 [place] [address] [facility] [address] [place] [address] Consulting Physician Pulmonary Disease 08/03/17 Khris Arthur MD 4921 [facility] [address] [place] [address] Medical Oncologist/Working Manager Medical Oncology 10/23/17 [place] [address] [facility] [address] [place] [address] Surgeon Orthopedic Surgery 10/23/17 [place] [address] [address] Consulting Physician Pain Management 10/23/17 [place] [address] [address] Referring Physician General Surgery 01/26/18 [place] [address] [facility] [address] [place] [address] Consulting Physician Neurology 01/26/18 documented as of this encounter
--- OUTSIDE RECORDS SUMMARY | 2024-04-26 09:22 | XMS_ITS | Encounter Summary ---
Author Organization [facility] Address [address] [place] [address] Care Team Providers Care Site Lead Name Role Phone Liu Jerez MD Unavailable Albert Corbin MD Unavailable Justen Gale MD Primary Care Provider Khris Arthur MD Unavailable [phone] Ko Melendez MD Unavailable John Paul Moyer MD Unavailable Annel Rod MD Unavailable Anali MARSHALL MD, Carlos M. 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 Gender Identity Not on file Sexual [...] on filedocumented in this encounter Care Teams Site Lead Relationship Specialty Start Date End Date Justen Gale MD 2 [facility] [address] [place] [address] PCP - General 10/09/17 Liu Jerez MD Consulting Physician Gastroenterology 07/28/17 [place] [address] [address] [facility] [address] [place] [address] Consulting Physician Pulmonary Disease 08/03/17 Khris Arthur MD 4921 [facility] [address] [place] [address] Medical Oncologist/Cabin Cleaner Medical Oncology 10/23/17 [place] [address] [address] [facility] [address] [place] [address] Surgeon Orthopedic Surgery 10/23/17 [place] [address] [facility] [address] [place] [address] Consulting Physician Pain Management 10/23/17 [place] [address] [facility] [address] [place] [address] Referring Physician General Surgery 01/26/18 [place] [address] [facility] [address] [place] [address] Consulting Physician Neurology 01/26/18 documented as of this encounter
--- OUTSIDE RECORDS SUMMARY | 2024-04-26 09:22 | XMS_ITS | Encounter Summary ---
Author Organization [facility] Address [address] [place] [address] Phone Care Team Providers Care Woolen Mill Utility Worker Name Role Phone Liu Jerez MD Unavailable [phone] Albert Corbin MD Unavailable Justen Gale MD Primary Care Provider Khris Arthur MD Unavailable [phone] Ko Melendez MD Unavailable John Paul Moyer MD Unavailable Annel Rod MD Unavailable Anali MARSHALL MD, Carlos M. 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 consult/lab appt. with Dr. Carrillo on 09-08-20 @ 10:00 AM at [facility]. documented in this encounter Plan of Treatment Not on file documented as of this encounter Visit Diagnoses Not on filedocumented in this encounter Care Teams Woolen Mill Utility Worker Relationship Specialty Start Date End Date Justen Gale MD [address] [address] PCP - General 10/09/17 Liu Jerez MD Consulting Physician Gastroenterology 07/28/17 [place] [address] [facility] [address] [place] [address] Consulting Physician Pulmonary Disease 08/03/17 Khris Arthur MD 4921 [facility] [address] [place] [address] Medical Oncologist/Beamer Hand Medical Oncology 10/23/17 [place] [address] [facility] [address] [place] [address] Surgeon Orthopedic Surgery 10/23/17 [place] [address] [address] Consulting Physician Pain Management 10/23/17 [place] [address] [address] Referring Physician General Surgery 01/26/18 [place] [address] [facility] [address] [place] [address] Consulting Physician Neurology 01/26/18 documented as of this encounter
--- OUTSIDE RECORDS SUMMARY | 2024-04-26 09:22 | XMS_ITS | Encounter Summary ---
Author Organization [facility] Address [address] [place] [address] Phone Care Team Providers Care Cryogenics Repairer Name Role Phone Liu Jerez MD Unavailable [phone] Albert Corbin MD Unavailable [phone] Justen Gale MD Primary Care Provider [phone] Khris Arthur MD Unavailable [phone] Ko Melendez MD Unavailable [phone] John Paul Moyer MD Unavailable Annel Rod MD Unavailable Anali MARSHALL MD, Carlos M. Unavailable [phone] Reason for Visit * Consultation (Routine) - Closed Specialty Diagnoses / Procedures Referred By Contac t Referred To Contact Hematology Diagnoses Leukocytosis, unspecified type Justen Gale MD [address] [address] Phone: tel: fax: Heaven Carrillo MD Phone: tel: fax: Referral ID Status Reason Start Date Expiration Date V isits Requested Visits Authorized [id number] Closed Specialty Services Required 08/11/2020 02/07/2021 25 25 Encounter Details Date Type Department Care Team (Late st Contact Info) Description 10/29/2020 1:00 PM CDT Office Visit [facility] Hematology [address] [facility] 7th [place] [address] [place] [address] Heaven Carrillo MD [address] [place] [address] Leukocytosis, unspecified type (Primary Dx) [...] on file 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 PAST MEDICAL HISTORY/PAST SURGICAL HISTORY: Past Medical [...] 21 added in this encounter Care Teams Cryogenics Repairer Relationship Specialty Start Date End Date Justen Gale MD [address] [address] PCP - General 10/09/17 Liu Jerez MD Consulting Physician Gastroenterology 07/28/17 [place] [address] [facility] [address] [place] [address] Consulting Physician Pulmonary Disease 08/03/17 Khris Arthur MD 4921 [facility] [address] [place] [address] Medical Oncologist/Sql Report Developer Medical Oncology 10/23/17 [place] [address] [facility] [address] [place] [address] Surgeon Orthopedic Surgery 10/23/17 [place] [address] [facility] [address] [place] [address] Consulting Physician Pain Management 10/23/17 [place] [address] [facility] [address] [place] [address] Referring Physician General Surgery 01/26/18 [place] [address] [facility] [address] [place] [address] Consulting Physician Neurology 01/26/18 documented as of this encounter
--- OUTSIDE RECORDS SUMMARY | 2024-04-26 09:22 | XMS_ITS | Encounter Summary ---
Author Organization [facility] Address [address] [place] [address] Phone Care Team Providers Care Rheologist Name Role Phone Liu Jerez MD Unavailable Albert Corbin MD Unavailable Justen Gale MD Primary Care Provider Khris Arthur MD Unavailable [phone] Ko Melendez MD Unavailable John Paul Moyer MD Unavailable Annel Rod MD Unavailable Anali MARSHALL MD, Carlos M. 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 [address] [place] [address] Consulting Physician Pulmonary Disease 08/03/17 Khris Arthur MD 4921 [facility] [address] [place] [address] Medical Oncologist/Cottage Parent Medical Oncology 10/23/[address] [place] [address] [facility] [address] [place] [address] Surgeon Orthopedic Surgery 10/23/17 [place] [address] [address] Consulting Physician Pain Management 10/23/[address] [place] [address] [facility] [address] [place] [address] Referring Physician General Surgery 01/26/18 [place] [address] [facility] [address] [place] [address] Consulting Physician Neurology 01/26/18 documented as of this encounter
--- OUTSIDE RECORDS SUMMARY | 2024-04-26 09:22 | XMS_ITS | Encounter Summary ---
Author Organization [facility] Address [address] [place] [address] Phone Care Team Providers Care Insurance Claim Representative Name Role Phone Liu Jerez MD Unavailable Albert Corbin MD Unavailable [phone] Justen Gale MD Primary Care Provider Khris Arthur MD Unavailable [phone] Ko Melendez MD Unavailable [phone] John Paul Moyer MD Unavailable Anenl Rod MD Unavailable Anali MARSHALL MD, Carlos M. 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 Gender Identity Not on file Sexual [...] on filedocumented in this encounter Care Teams Insurance Claim Representative Relationship Specialty Start Date End Date Justen Gale MD 2 [facility] [address] [place] [address] PCP - General 10/09/17 Liu Jerez MD Consulting Physician Gastroenterology 07/28/17 [place] [address] [facility] [address] [place] [address] Consulting Physician Pulmonary Disease 08/03/17 [place] [address] [place] [address] [address] [place] [address] Medical Oncologist/Hotel Yardperson Medical Oncology 10/23/17 [place] [address] [address] Surgeon Orthopedic Surgery 10/23/17 [place] [address] [address] Consulting Physician Pain Management 10/23/17 [place] [address] [address] Referring Physician General Surgery 01/26/18 [place] [address] [address] [facility] [address] [place] [address] Consulting Physician Neurology 01/26/18 documented as of this encounter
--- OUTSIDE RECORDS SUMMARY | 2024-04-26 09:22 | XMS_ITS | Encounter Summary ---
Author Organization [facility] Healthcare Address [address] [place] [address] Care Team Providers Care Community Midwife Name Role Phone Liu Jerez MD Unavailable Albert Corbin MD Unavailable [phone] Jutsen Gale MD Primary Care Provider Khris Arthur MD Unavailable [phone] Ko Melendez MD Unavailable John Paul Moyer MD Unavailable Annel Rod MD Unavailable Anali MARSHALL MD, Carlos M. 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/HCC) ([facility]) - HYPERTENSIVE HEART DISEASE WITH HEART FAILURE Unspecified hypertensive heart disease with heart failure Heart failure, unspecified (CMS/HCC) ([facility]) - HEART FAILURE, UNSPECIFIED Heart failure, unspecified [...] UNSPECIFIED SITE Obesity, unspecified - OBESITY, UNSPECIFIED half-way (current) use of anticoagulants - USP (CURRENT) USE OF ANTICOAGULANTS Long-term (current) use of anticoagulants technician terminal and repeater (current) use of insulin (HCC) - USP (CURRENT) USE OF INSULIN Presence of right [...] You have been seen and evaluated by [facility] ED. Your laboratory values were normal. We have attached a referral to the [facility] GI specialists here. They will call you [...] Active Problem List Diagnosis Date Noted ??? technician terminal and repeater (current) use 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 inhibitors 10/17/2019 ??? Thyroid nodule 08/07/2018 ??? Dyslipidemia ??? History of breast cancer ??? Other chronic pain ??? CVA (cerebral vascular accident) ([facility]) 01/24/2018 ??? Anxiety and depression 11/12/2017 ??? Uncontrolled type 2 diabetes mellitus with hyperglycemia, with long-term current use of insulin([facility]) 11/06/2017 ??? Allergy to drug 11/06/2017 ??? Dysuria 10/26/2017 ??? Acute left-sided low back pain with left-sided sciatica 10/23/2017 ??? Type 2 diabetes mellitus with neurologic complication, without long-term current use of insulin([facility]) 10/23/2017 ??? Essential hypertension 10/23/2017 ??? Long-term [...] vomiting type Sherry Diehl MD Resident 10/02/20 [id number] Sherry Diehl MD Resident 10/02/202256 Cosigned by [...] Glucose, POC 121 70 - 199 mg/dL [facility] Blood specimen (specimen) 10/02/2020 4:45 PM CDT 10/02/2020 4:45 PM CDT us Notinfile Unknown LAB POCT ORDERABLES - DEVICE F inal Result [facility] One [facility] Department [place] [address] * (ABNORMAL) Differential, auto (10/02/2020 4:08 PM CDT) Pathologist [facility] Neutrophil abs 7.1(H) 1.7 - 6.5 K/cumm [facility] Imm gran abs 0.1 0.0 - 0.1 K/cumm [facility] Lymphocyte abs 2.8 0.8 - 3.3 K/cumm [facility] Monocyte abs 0.9(H) 0.2 - 0.8 K/cumm [facility] Eosinophil abs 0.3 0.0 - 0.5 K/cumm [facility] Basophil abs 0.0 0.0 - 0.1 K/cumm [facility] Neutrophil pct 63.7 % [facility] Comment: Interpretive Data Percent cell count reference ranges are not reported, since discordance with absolute values may lead to misinterpretation of CBC data. Current Interpretive Data was last revised on 2017. Imm gran pct 0.4 % [facility] Comment: Interpretive Data Percent cell count reference ranges are not reported, since discordance with absolute values may lead to misinterpretation of CBC data. Current Interpretive Data was last revised on 2017. Lymphocyte pct 25.0 % [facility] Comment: Interpretive Data Percent cell count reference ranges are not reported, since discordance with absolute values may lead to misinterpretation of CBC data. Current Interpretive Data was last revised on 2017. Monocyte pct 8.2 % [facility] Comment: Interpretive Data Percent cell count reference ranges are not reported, since discordance with absolute values may lead to misinterpretation of CBC data. Current Interpretive Data was last revised on 2017. Eosinophil pct 2.3 % [facility] Comment: Interpretive Data Percent cell count reference ranges are not reported, since discordance with absolute values may lead to misinterpretation of CBC data. Current Interpretive Data was last revised on 2017. Basophil pct 0.4 % [facility] Comment: Interpretive Data Percent cell count reference ranges are not reported, since discordance with absolute values may lead to misinterpretation of CBC data. Current Interpretive Data was last revised on 2017. Blood specimen (specimen) 10/02/2020 4:08 PM CDT 10/02/2020 4:23 PM CDT us Sherry Diehl MD LAB BLOOD ORDERABLES Final Resul t Performing Organization Address City/[facility] Co de Phone Number [facility] Department [place] [address] * (ABNORMAL) Hepatic function panel (10/02/2020 4:08 PM CDT) Bilirubin, total 0.9 0.1 - 1.2 mg/dL [facility] Bilirubin, direct <0.2 0.1 - 0.3 mg/dL [facility] Protein, pl 8.8(H) 6.5 - 8.5 g/dL [facility] Albumin 4.2 3.5 - 5.0 g/dL [facility] Alk phos 86 40 - 130 Units/L [facility] ALT 24 7 - 45 Units/L [facility] AST 30 10 - 45 Units/L [facility] Blood specimen (specimen) 10/02/2020 4:08 PM CDT 10/02/2020 4:22 PM CDT us Sherry Diehl MD LAB BLOOD ORDERABLES Final Resul t Performing Organization Address [facility]/ZIP Co de Phone Number [facility] Department [place] [address] * (ABNORMAL) CBC with auto differential (10/02/2020 4:08 PM CDT) [facility] WBC 11.1(H) 3.8 - 9.9 K/cumm [facility] Hgb 13.8 11.9 - 15.5 g/dL [facility] Hct 43.6 35.6 - 45.5 % [facility] Plt 293 150 - 400 K/cumm [facility] MPV 10.6 9.1 - 12.3 fL [facility] RBC 4.75 3.90 - 5.20 M/cumm [facility] MCV 91.8 81.3 - 96.4 fL [facility] MCH 29.1 27.1 - 33.3 pg [facility] MCHC 31.7(L) 32.3 - 35.7 g/dL [facility] RDW CV 14.1 11.1 - 14.9 % [facility] RDW SD 47.8 35.7 - 48.1 fL [facility] NRBC abs 0.00 0.00 - 0.01 K/cumm [facility] Blood specimen (specimen) 10/02/2020 4:08 PM CDT 10/02/2020 4:23 PM CDT us Sherry Diehl MD LAB BLOOD ORDERABLES Final Resul t Performing Organization Address [facility] Co de Phone Number [facility] Department [place] [address] * (ABNORMAL) Basic metabolic panel (10/02/2020 4:08 PM CDT) [facility] Sodium 138 135 - 145 mmol/L [facility] Potassium, pl 4.4 3.3 - 4.9 mmol/L [facility] Chloride 101 97 - 110 mmol/L [facility] CO2 25 22 - 32 mmol/L [facility] Anion gap 12 2 - 15 mmol/L [facility] BUN 12 8 - 25 mg/dL [facility] Creatinine 0.76 0.60 - 1.10 mg/dL [facility] Glucose 135 70 - 199 mg/dL [facility] Comment: Interpretive Data Fasting glucose >/= [...] 2017. Calcium 10.4(H) 8.5 - 10.3 mg/dL [facility] Blood specimen (specimen) 10/02/2020 4:08 PM CDT 10/02/2020 4:22 PM CDT Sherry Diehl MD LAB BLOOD ORDERABLES Final Resul t Performing Organization Address City/[facility]/ZIP Co de Phone Number [facility] Department of [employer] [place] [address] * POCT glucose (10/02/2020 12:40 PM CDT) Glucose, POC 151 70 - 199 mg/dL [facility] Blood specimen (specimen) 10/02/2020 12:40 PM CDT 10/02/2020 12:40 PM CDT Notinfile Unknown LAB POCT ORDERABLES - DEVICE F inal Result Performing Organization Address City/[facility]/ZIP Co de Phone Number [facility] Department [place] [address] documented in this encounter Visit Diagnoses Diagnosis [...] 10/02/2020 documented in this encounter Care Teams Community Midwife Relationship Specialty Start Date End Date Justen Gale MD [address] [address] PCP - General 10/09/17 Liu Jerez MD Consulting Physician Gastroenterology 07/28/17 [place] [address] [address] [facility] [address] [place] [address] Consulting Physician Pulmonary Disease 08/03/17 Khris Arthur MD [address] [place] [address] Medical Oncologist/Single Wire Saw Operator Medical Oncology 10/23/17 [place] [address] [facility] [address] [place] [address] Surgeon Orthopedic Surgery 10/23/17 [place] [address] [address] Consulting Physician Pain Management 10/23/17 [place] [address] [address] Referring Physician General Surgery 01/26/18 [place] [address] [facility] [address] [place] [address] Consulting Physician Neurology 01/26/18 documented as of this encounter
--- OUTSIDE RECORDS SUMMARY | 2024-04-26 09:22 | XMS_ITS | Encounter Summary ---
Author Organization [facility] Address [address] [place] [address] Phone Care Team Providers Care Entry Level Project Coordinator Name Role Phone Liu Jerez MD Unavailable [phone] Albert Corbin MD Unavailable Justen Gale MD Primary Care Provider Khris Arthur MD Unavailable [phone] Ko Melendez MD Unavailable [phone] John Paul Moyer MD Unavailable Annel Rod MD Unavailable Anali MARSHALL MD, Carlos M. 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 No answer and not able to leave a message. Also called pt's , no answer not able to leave a message. Will send letter. ER JOINTER RETURNER documented in this encounter Plan of Treatment Not on file documented as of this encounter Visit Diagnoses Not on filedocumented in this encounter Care Teams Entry Level Project Coordinator Relationship Specialty Start Date End Date Justen Gale MD [address] [address] PCP - General 10/09/17 Liu Jerez MD Consulting Physician Gastroenterology 07/28/17 [place] [address] [facility] [address] [place] [address] Consulting Physician Pulmonary Disease 08/03/17 Khris Arthur MD [address] [facility] [address] [place] [address] Medical Oncologist/Thoracic Medicine Specialist Medical Oncology 7/2/18 [place] [address] [facility] [address] [place] [address] Surgeon Orthopedic Surgery 10/23/17 [place] [address] [address] Consulting Physician Pain Management 10/23/17 [place] [address] [facility] [address] [place] [address] Referring Physician General Surgery 01/26/18 [place] [address] [facility] [address] [place] [address] Consulting Physician Neurology 01/26/18 documented as of this encounter
--- OUTSIDE RECORDS SUMMARY | 2024-04-26 09:22 | XMS_ITS | Encounter Summary ---
Author Organization [facility] Address [address] [place] [address] Phone Care Team Providers Care Voice Pathologist Name Role Phone Liu Jerez MD Unavailable [phone] Albert Corbin MD Unavailable Justen Gale MD Primary Care Provider Khris Arthur MD Unavailable [phone] Ko Melendez MD Unavailable [phone] John Paul Moyer MD Unavailable [phone] Annel Rod MD Unavailable Anali MARSHALL MD, Carlos M. 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 Gender Identity Not on file Sexual Orientation [...] on filedocumented in this encounter Care Teams Voice Pathologist Relationship Specialty Start Date End Date Justen Gale MD 2 [facility] [address] [place] [address] PCP - General 10/09/17 Liu Jerez MD Consulting Physician Gastroenterology 07/28/17 [place] [address] [id number] [place] [address] Consulting Physician Pulmonary Disease 08/03/17 Khris Arthur MD [address] [facility] [address] [place] [address] Medical Oncologist/Sandfill Operator Medical Oncology 10/23/17 [place] [address] [address] [facility] [address] [place] [address] Surgeon Orthopedic Surgery 10/23/17 [place] [address] [address] [facility] [address] [place] [address] Consulting Physician Pain Management 10/23/17 [place] [address] [address] [facility] [address] [place] [address] Referring Physician General Surgery 01/26/18 [place] [address] [address] [facility] [address] [place] [address] Consulting Physician Neurology 01/26/18 documented as of this encounter
--- OUTSIDE RECORDS SUMMARY | 2024-04-26 09:22 | XMS_ITS | Encounter Summary ---
Author Organization [facility] Address [address] [place] [address] Phone Care Team Providers Care Film Producer Name Role Phone Liu Jerez MD Unavailable [phone] Albert Corbin MD Unavailable [phone] Justen Gale MD Primary Care Provider Khris Arthur MD Unavailable [phone] Ko Melendez MD Unavailable John Paul Moyer MD Unavailable Annel Rod MD Unavailable Anali MARSHALL MD, Carlos M. 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 Blood specimen (specimen) 11/10/2020 11:24 AM CDT 11/10/2020 11:51 AM CDT Khris Arthur MD LAB BLOOD ORDERABLES Final Result [facility] One [facility] Department [place] [address] * (ABNORMAL) Comprehensive metabolic panel (11/10/2020 11:24 AM CDT) Pathologist [facility] Sodium 133(L) 135 - 145 mmol/L [facility] Comment:Testing performed by : [facility], [address] [place] [phone] Potassium, pl 4.9 3.3 - 4.9 mmol/L [facility] Comment:Testing performed by : [facility], [address] [place] [phone] Chloride 100 97 - 110 mmol/L [facility] Comment:Testing performed by : [facility], [address] [place] [phone] CO2 26 22 - 32 mmol/L [facility] Comment:Testing performed by : [facility], [address] [place] [phone] Anion gap 7 2 - 15 mmol/L [facility] Comment:Testing performed by : [facility], [address] [place] [phone] BUN 24 8 - 25 mg/dL [facility] Comment:Testing performed by : [facility], [address] [place] [phone] Creatinine 0.69 0.60 - 1.10 mg/dL [facility] Comment:Testing performed by : [facility], [address] [place] [phone] Glucose 270(H) 70 - 199 mg/dL [facility] [...] was last revised 2017. Testing performed by: [facility], [address] [place] [phone] Calcium 10.4(H) 8.5 - 10.3 mg/dL [facility] Comment:Testing performed by : [facility], [address] [place] [phone] Bilirubin, total 0.4 0.1 - 1.2 mg/dL [facility] Comment:Testing performed by : [facility], [address] [place] [phone] Protein, pl 8.8(H) 6.5 - 8.5 g/dL [facility] Comment:Testing performed by : [address] [phone] Albumin 4.1 3.5 - 5.0 g/dL [facility] Comment:Testing performed by : [address] [phone] Alk phos 88 40 - 130 Units/L [facility] Comment:Testing performed by : [facility], [address] [place] [phone] ALT 15 7 - 45 Units/L [facility] Comment:Testing performed by : [facility], [address] [facility] [phone] AST 12 10 - 45 Units/L [facility] Comment:Testing performed by : [facility], [address] [facility] [phone] Blood specimen (specimen) 11/10/2020 11:24 AM CDT 11/10/2020 11:25 AM CDT Khris Arthur MD LAB BLOOD ORDERABLES Final Result [facility] One [facility] Department [place] [address] documented in this encounter Visit Diagnoses Diagnosis Malignant neoplasm of upper-inner quadrant of left breast in female, estrogen receptor positive (HCC)- Primary documented in this encounter Care Teams Film Producer Relationship Specialty Start Date End Date Justen Gale MD 2 [facility] [address] [place] [address] PCP - General 10/09/17 Liu Jerez MD Consulting Physician Gastroenterology 07/28/17 [place] [address] [address] [facility] [address] [place] [address] Consulting Physician Pulmonary Disease 08/03/17 Khris Arthur MD [address] [facility] [address] [place] [address] Medical Oncologist/Import/Export Analyst Medical Oncology 10/23/17 [place] [address] [address] Surgeon Orthopedic Surgery 10/23/17 [place] [address] [address] Consulting Physician Pain Management 10/23/17 [place] [address] [address] Referring Physician General Surgery 01/26/18 [place] [address] [facility] [address] [place] [address] Consulting Physician Neurology 01/26/18 documented as of this encounter
--- OUTSIDE RECORDS SUMMARY | 2024-04-26 09:22 | XMS_ITS | Encounter Summary ---
Author Organization [facility] Address [address] [place] [address] Phone Care Team Providers Care Drone Software Development Engineer Name Role Phone Liu Jerez MD Unavailable [phone] Albert Corbin MD Unavailable Justen Gale MD Primary Care Provider Khris Arthur MD Unavailable [phone] Ko Melendez MD Unavailable [phone] John Paul Moyer MD Unavailable Annel Rod MD Unavailable Anali MARSHALL MD, Carlos M. 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 consult/lab appt. with Dr. Carrillo on 10-29-20 @ 1:00 PM at [facility]. documented in this encounter Plan of Treatment Not on file documented as of this encounter Visit Diagnoses Not on filedocumented in this encounter Care Teams Drone Software Development Engineer Relationship Specialty Start Date End Date Justen Gale MD [address] [address] PCP - General 10/09/17 Liu Jerez MD Consulting Physician Gastroenterology 07/28/17 [place] [address] [facility] [address] [place] [address] Consulting Physician Pulmonary Disease 08/03/17 Khris Arthur MD [address] [facility] [address] [place] [address] Medical Oncologist/Cooker Mechanic Medical Oncology 10/23/17 [place] [address] [facility] [address] [place] [address] Surgeon Orthopedic Surgery 10/23/17 [place] [address] [address] Consulting Physician Pain Management 10/23/17 [place] [address] [address] Referring Physician General Surgery 01/26/18 [place] [address] [facility] [address] [place] [address] Consulting Physician Neurology 01/26/18 documented as of this encounter
--- OUTSIDE RECORDS SUMMARY | 2024-04-26 09:23 | XMS_ITS | Encounter Summary ---
Author Organization [facility] Address [address] [place] [address] Phone Care Team Providers Care Commercial Credit Lead Name Role Phone Liu Jerez MD Unavailable Albert Corbin MD Unavailable Justen Gale MD Primary Care Provider Khris Arthur MD Unavailable [phone] Ko Melendez MD Unavailable [phone] John Paul Moyer MD Unavailable Annel Rod MD Unavailable Anali MARSHALL MD, Carlos M. Unavailable Encounter Details Date Type Department Care Team (Late st Contact Info) Description 02/18/2020 Orders Only [facility] Oncology 49[address] [facility] Advanced [facility] 7th [place] [address] [place] [address] Khris Arthur MD 4921 [facility] [address]37 [place] [address] Social History Tobacco Use Types Packs/Day Years Used Date Smoking Tobacco: Former Smokeless Tobacco: Never Comments:remote tobacco use Alcohol Use Standard Drinks/Week Comments No 0 (1 standard drink = 0.6 oz pur e alcohol) PHQ-2 Answer Date Recorded PHQ-2 Score 1 12/15/2018 Comments No Sex and Gender Information Value Date Recorded Sex Assigned at Not on file Legal Sex Female 12:24 AM DIRECTOR CHILD DEVELOPMENT [facility]ENTER Gender Identity Not on file Sexual Orientation Not on file documented as of this encounter Plan of Treatment Not on file documented as of this encounter Visit Diagnoses Not on filedocumented in this encounter Care Teams Commercial Credit Lead Relationship Specialty Start Date End Date Justen Gale MD 2 [facility] [address] [place] [address] PCP - General 10/09/17 Liu Jerez MD Consulting Physician Gastroenterology 07/28/17 [place] [address] [address] [place] [id number] [place] [address] Consulting Physician Pulmonary Disease 08/03/17 Khris Arthur MD 4921 [facility] 8056 [place] [address] Medical Oncologist/Pecan Picker Medical Oncology 10/23/17 [place] [address] [address] Surgeon Orthopedic Surgery 10/23/17 [place] [address] [address] [facility] [address] [place] [address] Consulting Physician Pain Management 10/23/17 [place] [address] [address] [facility] [address] [place] [address] Referring Physician General Surgery 01/26/18 [place] [address] [address] [facility] [address] [place] [address] Consulting Physician Neurology 01/26/18 documented as of this encounter
--- OUTSIDE RECORDS SUMMARY | 2024-04-26 09:23 | XMS_ITS | Encounter Summary ---
Author Organization [facility] Address [address] [place] [address] Phone Care Team Providers Care Die Finisher Name Role Phone Liu Jerez MD Unavailable [phone] Albert Corbin MD Unavailable [phone] Justen Gale MD Primary Care Provider Khris Arthur MD Unavailable [phone] Ko Melendez MD Unavailable [phone] John Paul Moyer MD Unavailable Annel Rod MD Unavailable Anali MARSHALL MD, Carlos M. 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 No answer and not able to leave message. Will mail itinerary. ERTY UNDERWRITER documented in this encounter Plan of Treatment Not on file documented as of this encounter Visit Diagnoses Not on filedocumented in this encounter Care Teams Die Finisher Relationship Specialty Start Date End Date Justen Gale MD [address] [address] PCP - General 10/09/17 Liu Jerez MD Consulting Physician Gastroenterology 07/28/17 [place] [address] [facility] [address] [place] [address] Consulting Physician Pulmonary Disease 08/03/17 Khris Arthur MD 4921 [facility] 8056 [place] [address] Medical Oncologist/Board Certified Orthodontist Medical Oncology 10/23/17 [place] [address] [facility] [address] [place] [address] Surgeon Orthopedic Surgery 10/23/17 [place] [address] [facility] [address] [place] [address] Consulting Physician Pain Management 10/23/17 [place] [address] [facility] [address] [place] [address] Referring Physician General Surgery 01/26/18 [place] [address] [facility] [address] [place] [address] Consulting Physician Neurology 01/26/18 documented as of this encounter
--- OUTSIDE RECORDS SUMMARY | 2024-04-26 09:23 | XMS_ITS | Encounter Summary ---
Author Organization [facility] Address [address] [place] [address] Phone Care Team Providers Care Hone Operator Name Role Phone Liu Jerez MD Unavailable [phone] Albert Corbin MD Unavailable [phone] Justen Gale MD Primary Care Provider [phone] Khris Arthur MD Unavailable [phone] Ko Melendez MD Unavailable John Paul Moyer MD Unavailable Annel Rod MD Unavailable Anali MARSHALL MD, Carlos M. 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 I called and left a message on [employer] that she had been rescheduled with date and times. I also mailed patient itinerary for confirmation. documented in this encounter Plan of Treatment Not on file documented as of this encounter Visit Diagnoses Not on filedocumented in this encounter Care Teams Hone Operator Relationship Specialty Start Date End Date Justen Gale MD [address] [address] PCP - General 10/09/17 Liu Jerez MD Consulting Physician Gastroenterology 07/28/17 [place] [address] [address] [facility] [address] [place] [address] Consulting Physician Pulmonary Disease 08/03/17 Khris Arthur MD 4921 [facility] 8056 [place] [address] Medical Oncologist/Associate Professor Of Criminal Justice Medical Oncology 10/23/[address] [place] [address] [facility] 301 [place] [address] Surgeon Orthopedic Surgery 10/23/17 [place] [address] [address] Consulting Physician Pain Management 10/23/17 [place] [address] [address] Referring Physician General Surgery 01/26/18 [place] [address] [facility] [address] [place] [address] Consulting Physician Neurology 01/26/18 documented as of this encounter
--- OUTSIDE RECORDS SUMMARY | 2024-04-26 09:23 | XMS_ITS | Encounter Summary ---
Author Organization [facility] Address [address] [place] [address] Phone Care Team Providers Care Machine Repairer Maintenance Name Role Phone Liu Jerez MD Unavailable [phone] Albert Corbin MD Unavailable [phone] Justen Gale MD Primary Care Provider Khris Arthur MD Unavailable [phone] Ko Melendez MD Unavailable John Paul Moyer MD Unavailable Annel Rod MD Unavailable Anali MARSHALL MD, Carlos M. 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 Gender Identity Not on file Sexual [...] filedocumented in this encounter Care Teams Machine Repairer Maintenance Relationship Specialty Start Date End Date Justen Gale MD [address] [address] PCP - General 10/09/17 Liu Jerez MD Consulting Physician Gastroenterology 07/28/17 [place] [address] [facility] [address] [place] [address] Consulting Physician Pulmonary Disease 08/03/17 Khris Arthur MD 4921 [facility] 8056 [place] [address] Medical Oncologist/Merchandise Shopper Medical Oncology 7/2/18 [place] [address] [facility] [address] [place] [address] Surgeon Orthopedic Surgery 10/23/17 [place] [address] [address] Consulting Physician Pain Management 10/23/17 [place] [address] [facility] [address] [place] [address] Referring Physician General Surgery 01/26/18 [place] [address] [facility] [address] [place] [address] Consulting Physician Neurology 01/26/18 documented as of this encounter
--- OUTSIDE RECORDS SUMMARY | 2024-04-26 09:23 | XMS_ITS | Encounter Summary ---
Author Organization [facility] Address [address] [place] [address] Phone Care Team Providers Care Rn Burn Name Role Phone Liu Jerez MD Unavailable [phone] Albert Corbin MD Unavailable [phone] Justen Gale MD Primary Care Provider Khris Arthur MD Unavailable [phone] Ko Melendez MD Unavailable [phone] John Paul Moyer MD Unavailable Annel Rod MD Unavailable Anali MARSHALL MD, Carlos M. Unavailable Encounter Details Date Type Department Care Team (Late st Contact Info) Description 12/20/2019 Orders Only [facility] Oncology 49[address] [facility] 7th [place] [address] [place] [address] Khris Arthur MD 4921 [facility] [address]16 [place] [address] Social History Tobacco Use Types Packs/Day Years Used Date Smoking Tobacco: Former Smokeless Tobacco: Never Comments:remote tobacco use Alcohol Use Standard Drinks/Week Comments No 0 (1 standard drink = 0.6 oz pur e alcohol) PHQ-2 Answer Date Recorded PHQ-2 Score 1 12/15/2018 Comments No Sex and Gender Information Value Date Recorded Sex Assigned at Not on file 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 Gender Identity Not on file Sexual [...] on filedocumented in this encounter Care Teams Rn Burn Relationship Specialty Start Date End Date Justen Gale MD [address] [address] PCP - General 10/09/17 Liu Jerez MD Consulting Physician Gastroenterology 07/28/17 [place] [address] [id number] [place] [address] Consulting Physician Pulmonary Disease 08/03/17 Khris Arthur MD 4921 [facility] [address]056 [place] [address] Medical Oncologist/Content Engineer Medical Oncology 10/23/17 [place] [address] [facility] [address] [place] [address] Surgeon Orthopedic Surgery 10/23/17 [place] [address] [address] Consulting Physician Pain Management 10/23/17 [place] [address] [facility] [address] [place] [address] Referring Physician General Surgery 01/26/18 [place] [address] [facility] [address] [place] [address] Consulting Physician Neurology 01/26/18 documented as of this encounter
--- OUTSIDE RECORDS SUMMARY | 2024-04-26 09:23 | XMS_ITS | Encounter Summary ---
Author Organization [facility] Address [address] [place] [address] Phone Care Team Providers Care Piercer Operator Name Role Phone Liu Jerez MD Unavailable [phone] Albert Corbin MD Unavailable [phone] Justen Gale MD Primary Care Provider Khris Arthur MD Unavailable [phone] Ko Melendez MD Unavailable John Paul Moyer MD Unavailable Annel Rod MD Unavailable Anali MARSHALL MD, Carlos M. Unavailable Encounter Details Date Type Department Care Team (Late st Contact Info) Description 12/20/2019 Telephone [facility] Oncology [address] 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 Gender Identity Not on file Sexual Orientation [...] on filedocumented in this encounter Care Teams Piercer Operator Relationship Specialty Start Date End Date Justen Gale MD [address] [address] PCP - General 10/09/17 Liu Jerez MD Consulting Physician Gastroenterology 07/28/17 [place] [address] [address] [facility] H23[address] [place] [address] Consulting Physician Pulmonary Disease 08/03/17 Khris Arthur MD 4921 [facility] [address] [place] [address] Medical Oncologist/Compliance Engineer Medical Oncology 10/23/17 [place] [address] [address] [facility] [address] [place] [address] Surgeon Orthopedic Surgery 10/23/17 [place] [address] [address] [facility] [address] [place] [address] Consulting Physician Pain Management 10/23/17 [place] [address] [address] [facility] [address] [place] [address] Referring Physician General Surgery 01/26/18 [place] [address] [address] [facility] [address] [place] [address] Consulting Physician Neurology 01/26/18 documented as of this encounter
--- OUTSIDE RECORDS SUMMARY | 2024-04-26 09:23 | XMS_ITS | Encounter Summary ---
Author Organization [facility] Address [address] [place] [address] Phone Care Team Providers Care Hadoop Application Developer Name Role Phone Liu Jerez MD Unavailable Albert Corbin MD Unavailable [phone] Justen Gale MD Primary Care Provider Khris Arthur MD Unavailable [phone] Ko Melendez MD Unavailable John Paul Moyer MD Unavailable Annel Rod MD Unavailable Anali MARSHALL MD, Carlos M. 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 TIGRAPHY TEACHER documented in this encounter Plan of Treatment Not on file documented as of this encounter Visit Diagnoses Not on filedocumented in this encounter Care Teams Hadoop Application Developer Relationship Specialty Start Date End Date Justen Gale MD 2 [facility] [address] [place] [address] PCP - General 10/09/17 Liu Jerez MD Consulting Physician Gastroenterology 07/28/17 [place] [address] [address] [facility] [address] [place] [address] Consulting Physician Pulmonary Disease 08/03/17 Khris Arthur MD 4921 [facility] [address] [place] [address] Medical Oncologist/Guest Associate Medical Oncology 10/23/17 [place] [address] [address] [facility] [address] [place] [address] Surgeon Orthopedic Surgery 10/23/17 [place] [address] [address] [facility] [address] [place] [address] Consulting Physician Pain Management 10/23/17 [place] [address] [facility] [address] [place] [address] Referring Physician General Surgery 01/26/18 [place] [address] [facility] [address] [place] [address] Consulting Physician Neurology 01/26/18 documented as of this encounter
--- OUTSIDE RECORDS SUMMARY | 2024-04-26 09:23 | XMS_ITS | Encounter Summary ---
Author Organization [facility] Address [address] [place] [address] Phone Care Team Providers Care Technical Intern Name Role Phone Liu Jerez MD Unavailable Albert Corbin MD Unavailable [phone] Justen Gale MD Primary Care Provider [phone] Khris Arthur MD Unavailable [phone] Ko Melendez MD Unavailable [phone] John Paul Moyer MD Unavailable Annel Rod MD Unavailable Anali MARSHALL MD, Carlos M. 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 Gender Identity Not on file Sexual [...] on filedocumented in this encounter Care Teams Technical Intern Relationship Specialty Start Date End Date Justen Gale MD [address] [address] PCP - General 10/09/17 Liu Jerez MD Consulting Physician Gastroenterology 07/28/17 [place] [address] [place] [id number] [place] [address] Consulting Physician Pulmonary Disease 08/03/17 Khris Arthur MD 4921 [facility] [address] [place] [address] Medical Oncologist/Truck Technician Medical Oncology 10/23/17 [place] [address] [facility] [address] [place] [address] Surgeon Orthopedic Surgery 10/23/17 [place] [address] [address] Consulting Physician Pain Management 10/23/17 [place] [address] [address] Referring Physician General Surgery 01/26/18 [place] [address] [facility] [address] [place] [address] Consulting Physician Neurology 01/26/18 documented as of this encounter
--- OUTSIDE RECORDS SUMMARY | 2024-04-26 09:23 | XMS_ITS | Encounter Summary ---
Author Organization [facility] Address [address] [place] [address] Phone Care Team Providers Care Dispatch Officer Name Role Phone Liu Jerez MD Unavailable Albert Corbin MD Unavailable Justen Gale MD Primary Care Provider [phone] Khris Arthur MD Unavailable [phone] Ko Melendez MD Unavailable [phone] John Paul Moyer MD Unavailable Annel Rod MD Unavailable Anali MARSHALL MD, Carlos M. 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 Transportation Assistance Program. Patient was provided with an application to complete and return to Social Work or return directly to agencies for financial and transportation assistance. Patient will follow up on information provided. Cira Maxwell LCSW NC[employer] MANUFACTURING CONSULTANT documented in this encounter Plan of Treatment Not on file documented as of this encounter Visit Diagnoses Not on filedocumented in this encounter Care Teams Dispatch Officer Relationship Specialty Start Date End Date Justen Gale MD [address] [address] PCP - General 10/09/17 Liu Jerez MD Consulting Physician Gastroenterology 07/28/17 [place] [address] [facility] [address] [place] [address] Consulting Physician Pulmonary Disease 08/03/17 Khris Arthur MD 4921 [facility] [address] [place] [address] Medical Oncologist/Buckshot Swage Operator Medical Oncology 10/23/17 [place] [address] [facility] [address] [place] [address] Surgeon Orthopedic Surgery 10/23/17 [place] [address] [facility] [address] [place] [address] Consulting Physician Pain Management 10/23/17 [place] [address] [facility] [address] [place] [address] Referring Physician General Surgery 01/26/18 [place] [address] [facility] [address] [place] [address] Consulting Physician Neurology 01/26/18 documented as of this encounter
--- OUTSIDE RECORDS SUMMARY | 2024-04-26 09:23 | XMS_ITS | Encounter Summary ---
Author Organization [facility] Address [address] [place] [address] Phone Care Team Providers Care General Studies Program Chair Name Role Phone Liu Jerez MD Unavailable Albert Corbin MD Unavailable Justen Gale MD Primary Care Provider [phone] Khris Arthur MD Unavailable [phone] Ko Melendez MD Unavailable [phone] John Paul Moyer MD Unavailable Annel Rod MD Unavailable Anali MARSHALL MD, Carlos M. 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 Called her back and left voicemail to offer telehealth visit. Will await call back. ING SEPARATOR documented in this encounter Plan of Treatment Not on file documented as of this encounter Visit Diagnoses Not on filedocumented in this encounter Care Teams General Studies Program Chair Relationship Specialty Start Date End Date Justen Gale MD [address] [address] PCP - General 10/09/17 Liu Jerez MD Consulting Physician Gastroenterology 07/28/17 [place] [address] [facility] [address] [place] [address] Consulting Physician Pulmonary Disease 08/03/17 Khris Arthur MD 4921 [facility] [address]056 [place] [address] Medical Oncologist/Film Projector Operator Medical Oncology 10/23/17 [place] [address] [facility] [address] [place] [address] Surgeon Orthopedic Surgery 10/23/17 [place] [address] [address] Consulting Physician Pain Management 10/23/17 [place] [address] [address] Referring Physician General Surgery 01/26/18 [place] [address] [facility] [address] [place] [address] Consulting Physician Neurology 01/26/18 documented as of this encounter
--- OUTSIDE RECORDS SUMMARY | 2024-04-26 09:23 | XMS_ITS | Encounter Summary ---
Author Organization [facility] Address [address] [place] [address] Phone Care Team Providers Care Cottage Supervisor Name Role Phone Liu Jerez MD Unavailable Albert Corbin MD Unavailable [phone] Justen Gale MD Primary Care Provider Khris Arthur MD Unavailable [phone] Ko Melendez MD Unavailable John Paul Moyer MD Unavailable Annel Rod MD Unavailable Anali MARSHALL MD, Carlos M. 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 Returned her call, she was unavailable. [facility] offering to do telephone visit tomorrow instead of in-person since Karly has missed/rescheduled numerous appointments. Asked for call back to let us know if she is interested. Otherwise, can reschedule for a later date. documented in this encounter Plan of Treatment Not on file documented as of this encounter Visit Diagnoses Not on filedocumented in this encounter Care Teams Cottage Supervisor Relationship Specialty Start Date End Date Justen Gale MD 2 [facility] [address] [place] [address] PCP - General 10/09/17 Liu Jerez MD Consulting Physician Gastroenterology 07/28/17 [place] [address] [facility] [address] [place] [address] Consulting Physician Pulmonary Disease 08/03/17 [place] [address] [place] [address] [address] [place] [address] Medical Oncologist/Assayer Medical Oncology 10/23/17 [place] [address] [facility] [address] [place] [address] Surgeon Orthopedic Surgery 10/23/17 [place] [address] [address] Consulting Physician Pain Management 10/23/17 [place] [address] [address] Referring Physician General Surgery 01/26/18 [place] [address] [facility] [address] [place] [address] Consulting Physician Neurology 01/26/18 documented as of this encounter
--- OUTSIDE RECORDS SUMMARY | 2024-04-26 09:23 | XMS_ITS | Encounter Summary ---
Author Organization [facility] Address [address] [place] [address] Phone Care Team Providers Care Mobile Game Engineer Name Role Phone Liu Jerez MD Unavailable Albert Corbin MD Unavailable [phone] Justen Gale MD Primary Care Provider Khris Arthur MD Unavailable [phone] Ko Melendez MD Unavailable [phone] John Paul Moyer MD Unavailable Annel Rod MD Unavailable Anali MARSHALL MD, Carlos M. 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 Gender Identity Not on file Sexual Orientation [...] on filedocumented in this encounter Care Teams Mobile Game Engineer Relationship Specialty Start Date End Date Justen Gale MD 2 [facility] [address] [place] [address] PCP - General 10/09/17 Liu Jerez MD Consulting Physician Gastroenterology 07/28/17 [place] [address] [facility] [address] [place] [address] Consulting Physician Pulmonary Disease 08/03/17 [place] [address] [place] [address] [address] [place] [address] Medical Oncologist/Cotton Bag Clipper Medical Oncology 10/23/17 [place] [address] [facility] [address] [place] [address] Surgeon Orthopedic Surgery 10/23/17 [place] [address] [address] Consulting Physician Pain Management 10/23/17 [place] [address] [facility] [address] [place] [address] Referring Physician General Surgery 01/26/18 [place] [address] [facility] [address] [place] [address] Consulting Physician Neurology 01/26/18 documented as of this encounter
--- OUTSIDE RECORDS SUMMARY | 2024-04-26 09:24 | XMS_ITS | Encounter Summary ---
Author Organization [facility] Address [address] [place] [address] Phone Care Team Providers Care Staff Therapist Name Role Phone Liu Jerez MD Unavailable Albert Corbin MD Unavailable [phone] Justen Gale MD Primary Care Provider Khris Arthur MD Unavailable [phone] Ko Melendez MD Unavailable John Paul Moyer MD Unavailable Annel Rod MD Unavailable Anali MARSHALL MD, Carlos M. 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 Gender Identity Not on file Sexual Orientation Not on file documented as of this encounter Plan of Treatment Not on file documented as of this encounter Visit Diagnoses Diagnosis Malignant neoplasm of upper-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, unspecified estrogen receptor status (HCC)- Primary documented in this encounter Care Teams Staff Therapist Relationship Specialty Start Date End Date Justen Gale MD [address] [address] PCP - General 10/09/17 Liu Jerez MD Consulting Physician Gastroenterology 07/28/17 [place] [address] [facility] [address] [place] [address] Consulting Physician Pulmonary Disease 08/03/17 Khris Arthur MD 4921 [facility] [address] [place] [address] Medical Oncologist/Greenhouse Manager Medical Oncology 10/23/17 [place] [address] [facility] [address] [place] [address] Surgeon Orthopedic Surgery 10/23/17 [place] [address] [facility] [address] [place] [address] Consulting Physician Pain Management 10/23/17 [place] [address] [facility] [address] [place] [address] Referring Physician General Surgery 01/26/18 [place] [address] [facility] [address] [place] [address] Consulting Physician Neurology 01/26/18 documented as of this encounter
--- OUTSIDE RECORDS SUMMARY | 2024-04-26 09:24 | XMS_ITS | Encounter Summary ---
Author Organization [facility] Address [address] [place] [address] Care Team Providers Care Dental Nurse Name Role Phone Liu Jerez MD Unavailable [phone] Albert Corbin MD Unavailable Justen Gale MD Primary Care Provider Khris Arthur MD Unavailable [phone] Ko Melendez MD Unavailable John Paul Moyer MD Unavailable Annel Rod MD Unavailable Anali MARSHALL MD, Carlos M. Unavailable Reason for Referral * Diagnostic Imaging (Routine) - Closed Specialty Diagnoses / Procedures Referred By Elyssa t Referred To Contact Radiology Diagnoses Lumbar radiculopathy Procedures MRI Thoracic Spine WO Contrast Madelyn Donnelly, IRON SETTER Phone: tel: fax: [address] [address] Referral ID Status Reason Start Date Expiration Date Visits Re quested Visits Authorized [id number] Closed 01/15/2019 07/26/2020 1 1 Reason for Visit * Diagnostic Imaging (Routine) - Closed Specialty Diagnoses / Procedures Referred By Elyssa benavides Referred To Contact Radiology Diagnoses Lumbar radiculopathy Procedures MRI Thoracic Spine WO Contrast Madelyn Donnelly NP Phone: tel: fax: [address] [address] Referral ID Status Reason Start Date Expiration Date Visits Re quested Visits Authorized [id number] Closed 01/15/2019 07/26/2020 1 1 Encounter Details Date Type Department Care Team (Late st Contact Info) Description 01/21/2019 2:30 PM CDT - 01/21/2019 11:59 PM CDT Hospital Encounter [facility] [address] [place] [address] Taylor Smith MD [address] [place] [address] Madelyn Donnelly NP [address] [place] [address] Lumbar radiculopathy Discharge Disposition: Discharge to home [...] file 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 Madelyn Donnelly IRON SETTER IMG MRI PROCEDURES Final Resul t documented in this encounter Visit Diagnoses Diagnosis Lumbar radiculopathy Thoracic or lumbosacral neuritis or radiculitis, unspecified documented in this encounter Care Teams Dental Nurse Relationship Specialty Start Date End Date Justen Gale MD [address] [place] [id number] PCP - General 10/09/17 Liu Jerez MD Consulting Physician Gastroenterology 07/28/17 [place] [address] [facility] [address] [place] [address] Consulting Physician Pulmonary Disease 08/03/17 Khris Arthur MD 4921 [facility] [address] [place] [address] Medical Oncologist/Social Work Therapist Medical Oncology 10/23/17 [place] [address] [facility] 301 [place] [address] Surgeon Orthopedic Surgery 10/23/17 [place] [address] [facility] [address] [place] [address] Consulting Physician Pain Management 10/23/17 [place] [address] [facility] [address] [place] [address] Referring Physician General Surgery 01/26/18 [place] [address] [facility] [address] [place] [address] Consulting Physician Neurology 01/26/18 documented as of this encounter
--- OUTSIDE RECORDS SUMMARY | 2024-04-26 09:24 | XMS_ITS | Encounter Summary ---
Author Organization [facility] Address [address] [place] [address] Phone Care Team Providers Care Counter Pocket Sewer Name Role Phone Liu Jerez MD Unavailable Albert Corbin MD Unavailable Justen Gale MD Primary Care Provider [phone] Khris Arthur MD Unavailable [phone] Ko Melendez MD Unavailable John Paul Moyer MD Unavailable [phone] Annel Rod MD Unavailable Anali MARSHALL MD, Carlos M. Unavailable [phone] Encounter Details Date Type Department Care Team (Late st Contact Info) Description 08/01/2019 Orders Only [facility] Oncology [address] 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 Gender Identity Not on file Sexual [...] documented as of this encounter Care Teams Counter Pocket Sewer Relationship Specialty Start Date End Date Justen Gale MD 2 [facility] [address] [place] [address] PCP - General 10/09/17 Liu Jerez MD Consulting Physician Gastroenterology 07/28/17 [place] [address] [facility] [address] [place] [address] Consulting Physician Pulmonary Disease 08/03/17 Khris Arthur MD 4921 [facility] [address] [place] [address] Medical Oncologist/Mock Up Assembler Medical Oncology 10/23/17 [place] [address] [facility] [address] [place] [address] Surgeon Orthopedic Surgery 10/23/17 [place] [address] [facility] [address] [place] [address] Consulting Physician Pain Management 10/23/17 [place] [address] [facility] [address] [place] [address] Referring Physician General Surgery 01/26/18 [place] [address] [facility] [address] [place] [address] Consulting Physician Neurology 01/26/18 documented as of this encounter
--- OUTSIDE RECORDS SUMMARY | 2024-04-26 09:24 | XMS_ITS | Encounter Summary ---
Author Organization [facility] Address [address] [place] [address] Phone Care Team Providers Care Charge Account Clerk Name Role Phone Liu Jerez MD Unavailable Albert Corbin MD Unavailable Justen Gale MD Primary Care Provider Khris Arthur MD Unavailable [phone] Ko Melendez MD Unavailable John Paul Moyer MD Unavailable Annel Rod MD Unavailable Anali MARSHALL MD, Carlos M. 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 Arthur. Provided call back number. Will await for phone call. OLATE FINISHER OPERATOR documented in this encounter Plan of Treatment Not on file documented as of this encounter Visit Diagnoses Not on filedocumented in this encounter Care Teams Charge Account Clerk Relationship Specialty Start Date End Date Justen Gale MD [address] [address] PCP - General 10/09/17 Liu Jerez MD Consulting Physician Gastroenterology 07/28/17 [place] [address] [facility] [address] [place] [address] Consulting Physician Pulmonary Disease 08/03/17 Khris Arthur MD 4921 [facility] [address] [place] [address] Medical Oncologist/Outside Sales Representative Insurance Medical Oncology 10/23/17 [place] [address] [facility] [address] [place] [address] Surgeon Orthopedic Surgery 10/23/17 [place] [address] [address] Consulting Physician Pain Management 10/23/17 [place] [address] [address] Referring Physician General Surgery 01/26/18 [place] [address] [facility] [address] [place] [address] Consulting Physician Neurology 01/26/18 documented as of this encounter
--- OUTSIDE RECORDS SUMMARY | 2024-04-26 09:24 | XMS_ITS | Encounter Summary ---
Author Organization [facility] Address [address] [place] [address] Phone Care Team Providers Care Appointment Setter Name Role Phone Liu Jerez MD Unavailable Albert Corbin MD Unavailable [phone] Justen Gale MD Primary Care Provider Khris Arthur MD Unavailable [phone] Ko Melendez MD Unavailable John Paul Moyer MD Unavailable Annel Rod MD Unavailable Anali MARSHALL MD, Carlos M. 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 Gender Identity Not on file Sexual [...] documented as of this encounter Care Teams Appointment Setter Relationship Specialty Start Date End Date Justen Gale MD [address] [address] PCP - General 10/09/17 Liu Jerez MD Consulting Physician Gastroenterology 07/28/17 [place] [address] [facility] [address] [place] [address] Consulting Physician Pulmonary Disease 08/03/17 Khris Arthur MD 4921 [facility] [address] [place] [address] Medical Oncologist/Technology Methodology Consultant Medical Oncology 10/23/17 [place] [address] [facility] [address] [place] [address] Surgeon Orthopedic Surgery 10/23/17 [place] [address] [facility] [address] [place] [address] Consulting Physician Pain Management 10/23/17 [place] [address] [facility] [address] [place] [address] Referring Physician General Surgery 01/26/18 [place] [address] [facility] [address] [place] [address] Consulting Physician Neurology 01/26/18 documented as of this encounter
--- OUTSIDE RECORDS SUMMARY | 2024-04-26 09:24 | XMS_ITS | Encounter Summary ---
Author Organization [facility] Address [address] [place] [address] Phone Care Team Providers Care Chocolate Finisher Operator Name Role Phone Liu Jerez MD Unavailable Albert Corbin MD Unavailable Justen Gale MD Primary Care Provider Khris Arthur MD Unavailable [phone] Ko Melendez MD Unavailable John Paul Moyer MD Unavailable Annel Rod MD Unavailable Anali MARSHALL MD, Carlos M. 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 F OPERATIONS OFFICER documented in this encounter Plan of Treatment Not on file documented as of this encounter Visit Diagnoses Not on filedocumented in this encounter Care Teams Chocolate Finisher Operator Relationship Specialty Start Date End Date Justen Gale MD [address] [address] PCP - General 10/09/17 Liu Jerez MD Consulting Physician Gastroenterology 07/28/17 [place] [address] [facility] [address] [place] [address] Consulting Physician Pulmonary Disease 08/03/17 Khris Arthur MD 4921 [facility] [address] [place] [address] Medical Oncologist/Medical Facilities Section Director Medical Oncology 10/23/17 [place] [address] [facility] [address] [place] [address] Surgeon Orthopedic Surgery 10/23/17 [place] [address] [address] Consulting Physician Pain Management 10/23/17 [place] [address] [facility] [address] [place] [address] Referring Physician General Surgery 01/26/18 [place] [address] [facility] [address] [place] [address] Consulting Physician Neurology 01/26/18 documented as of this encounter
--- OUTSIDE RECORDS SUMMARY | 2024-04-26 09:24 | XMS_ITS | Encounter Summary ---
Author Organization [facility] Address [address] [place] [address] Phone Care Team Providers Care Radio Frequency Engineer Name Role Phone Liu Jerez MD Unavailable Albert Corbin MD Unavailable [phone] Justen Gale MD Primary Care Provider Khris Arthur MD Unavailable [phone] Ko Melendez MD Unavailable [phone] John Paul Moyer MD Unavailable Annel Rod MD Unavailable Anali MARSHALL MD, Carlos M. 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 [address] [place] [address] Consulting Physician Pulmonary Disease 08/03/17 [place] [address] [place] [address] 8[address] [place] [address] Medical Oncologist/Sailor Medical Oncology 10/23/[address] [place] [address] [facility] [address] [place] [address] Surgeon Orthopedic Surgery 10/23/17 [place] [address] [facility] [address] [place] [address] Consulting Physician Pain Management 10/23/[address] [place] [address] [facility] [address] [place] [address] Referring Physician General Surgery 01/26/18 [place] [address] [facility] [address] [place] [address] Consulting Physician Neurology 01/26/18 documented as of this encounter
--- OUTSIDE RECORDS SUMMARY | 2024-04-26 09:24 | XMS_ITS | Encounter Summary ---
Author Organization [facility] Address [address] [place] [address] Phone Care Team Providers Care Business Administrator Name Role Phone Liu Jerez MD Unavailable [phone] Albert Corbin MD Unavailable Justen Gale MD Primary Care Provider Khris Arthur MD Unavailable [phone] Ko Melendez MD Unavailable John Paul Moyer MD Unavailable Annel Rod MD Unavailable Anali MARSHALL MD, Carlos M. 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 I will be mailing her itinerary. DECORATOR documented in this encounter Plan of Treatment Not on file documented as of this encounter Visit Diagnoses Not on filedocumented in this encounter Care Teams Business Administrator Relationship Specialty Start Date End Date Justen Gale MD 2 [facility] [address] [place] [address] PCP - General 10/09/17 Liu Jerez MD Consulting Physician Gastroenterology 07/28/17 [place] [address] [facility] [address] [place] [address] Consulting Physician Pulmonary Disease 08/03/17 Khris Arthur MD [address] [place] [address] 8056 [place] [address] Medical Oncologist/Pulp Maker Medical Oncology 10/23/17 [place] [address] [facility] [address] [place] [address] Surgeon Orthopedic Surgery 10/23/17 [place] [address] [facility] [address] [place] [address] Consulting Physician Pain Management 10/23/17 [place] [address] [facility] [address] [place] [address] Referring Physician General Surgery 01/26/18 [place] [address] [facility] [address] [place] [address] Consulting Physician Neurology 01/26/18 documented as of this encounter
--- OUTSIDE RECORDS SUMMARY | 2024-04-26 09:24 | XMS_ITS | Encounter Summary ---
Author Organization [facility] Address [address] [place] [address] Care Team Providers Care Electrical Development Engineer Name Role Phone Liu Jeerz MD Unavailable Albert Corbin MD Unavailable Justen Gale MD Primary Care Provider Khris Arthur MD Unavailable [phone] Ko Melendez MD Unavailable [phone] John Paul Moyer MD Unavailable [phone] Annel Rod MD Unavailable Anali MARSHALL MD, Carlos M. Unavailable [phone] Encounter Details Date Type Department Care Team (Latest Contact Info) Description 10/04/2018 1:32 AM CDT - 10/04/2018 1:48 AM CDT Hospital Encounter [facility] Radiology [address] [place] [address] Justen Langford MD [address] [facility] [address] [place] [address] Discharge Disposition: Discharge to home or self care Social History Tobacco Use Types Packs/Day Years Used Date Smoking Tobacco: Former Smokeless Tobacco: Never Comments:remote tobacco use Alcohol Use Standard Drinks/Week Comments No 0 (1 standard drink = 0.6 oz pur e alcohol) Comments No Sex and Gender Information Value Date Recorded Sex Assigned at Not on file 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 Electronically signed by: Willem Kovacs M.D. [facility] MD IMG XR PROCEDURES Final Re sult documented in this encounter Visit Diagnoses Not on filedocumented in this encounter Care Teams Electrical Development Engineer Relationship Specialty Start Date End Date Justen Gale MD [address] [address] PCP - General 10/09/17 Liu Jerez MD Consulting Physician Gastroenterology 07/28/17 [place] [address] [facility] [address] [place] [address] Consulting Physician Pulmonary Disease 08/03/17 Khris Arthur MD 4921 [facility] [address] [place] [address] Medical Oncologist/Critical Care Clinical Nurse Specialist Medical Oncology 10/23/17 [place] [address] [facility] [address] [place] [address] Surgeon Orthopedic Surgery 10/23/17 [place] [address] [facility] [address] [place] [address] Consulting Physician Pain Management 10/23/17 [place] [address] [facility] [address] [place] [address] Referring Physician General Surgery 01/26/18 [place] [address] [facility] [address] [place] [address] Consulting Physician Neurology 01/26/18 documented as of this encounter
--- OUTSIDE RECORDS SUMMARY | 2024-04-26 09:24 | XMS_ITS | Encounter Summary ---
Author Organization [facility] Address [address] [place] [address] Phone Care Team Providers Care Composition Professor Name Role Phone Liu Jerez MD Unavailable [phone] Albert Corbin MD Unavailable Justen Gale MD Primary Care Provider [phone] Khris Arthur MD Unavailable [phone] Ko Melendez MD Unavailable John Paul Moyer MD Unavailable Annel Rod MD Unavailable Anali MARSHALL MD, Carlos M. 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 ESS CUTTER documented in this encounter Plan of Treatment Not on file documented as of this encounter Visit Diagnoses Not on filedocumented in this encounter Care Teams Composition Professor Relationship Specialty Start Date End Date Justen Gale MD [address] [address] PCP - General 10/09/17 Liu Jerez MD Consulting Physician Gastroenterology 07/28/17 [place] [address] [facility] [address] [place] [address] Consulting Physician Pulmonary Disease 08/03/17 Khris Arthur MD [address] [facility] [address] [place] [address] Medical Oncologist/Logger Medical Oncology 10/23/17 [place] [address] [facility] [address] [place] [address] Surgeon Orthopedic Surgery 10/23/17 [place] [address] [address] Consulting Physician Pain Management 10/23/17 [place] [address] [facility] [address] [place] [address] Referring Physician General Surgery 01/26/18 [place] [address] [facility] [address] [place] [address] Consulting Physician Neurology 01/26/18 documented as of this encounter
--- OUTSIDE RECORDS SUMMARY | 2024-04-26 09:24 | XMS_ITS | Encounter Summary ---
Author Organization [facility] Address [address] [place] [address] Phone Care Team Providers Care Makeup Artist Name Role Phone Liu Jerez MD Unavailable [phone] Albert Corbin MD Unavailable Justen Gale MD Primary Care Provider [phone] Khris Arthur MD Unavailable [phone] Ko Melendez MD Unavailable John Paul Moyer MD Unavailable Annle Rod MD Unavailable Anali MARSHALL MD, Carlos M. Unavailable Encounter Details Date Type Department Care Team (Late st Contact Info) Description 08/05/2019 Orders Only [facility] Oncology [address] [facility] 7th [place] [address] [place] [address] Khris Arthur MD 49[address] [facility] [address] [place] [address] Social History Tobacco Use Types Packs/Day Years Used Date Smoking Tobacco: Former Smokeless Tobacco: Never Comments:remote tobacco use Alcohol Use Standard Drinks/Week Comments No 0 (1 standard drink = 0.6 oz pur e alcohol) PHQ-2 Answer Date Recorded PHQ-2 Score 1 12/15/2018 Comments No Sex and Gender Information Value Date Recorded Sex Assigned at Not on file 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 Gender Identity Not on file Sexual Orientation Not on file documented as of this encounter Plan of Treatment Not on file documented as of this encounter Visit Diagnoses Not on filedocumented in this encounter Care Teams Makeup Artist Relationship Specialty Start Date End Date Justen Gale MD 2 [facility] [address] [place] [address] PCP - General 10/09/17 Liu Jerez MD Consulting Physician Gastroenterology 07/28/17 [place] [address] [address] [place] [id number] [place] [address] Consulting Physician Pulmonary Disease 08/03/17 Khris Arthur MD 49[address] [facility] [address] [place] [address] Medical Oncologist/Knitter Wire Mesh Medical Oncology 10/23/17 [place] [address] [address] Surgeon Orthopedic Surgery 10/23/17 [place] [address] [facility] [address] [place] [address] Consulting Physician Pain Management 10/23/17 [place] [address] [facility] [address] [place] [address] Referring Physician General Surgery 01/26/18 [place] [address] [facility] [address] [place] [address] Consulting Physician Neurology 01/26/18 documented as of this encounter
--- OUTSIDE RECORDS SUMMARY | 2024-04-26 09:24 | XMS_ITS | Encounter Summary ---
Author Organization [facility] Address [address] [place] [address] Phone Care Team Providers Care Automatic Fabric Cutter Name Role Phone Liu Jerez MD Unavailable Albert Corbin MD Unavailable Justen Gale MD Primary Care Provider Khris Arthur MD Unavailable [phone] Ko Melendez MD Unavailable John Paul Moyer MD Unavailable Annel Rod MD Unavailable Anali MARSHALL MD, Carlos M. 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 Camarillo [...] filedocumented in this encounter Care Teams Automatic Fabric Cutter Relationship Specialty Start Date End Date Justen Gale MD 2 [facility] [address] [place] [address] PCP - General 10/09/17 Liu Jerez MD Consulting Physician Gastroenterology 07/28/17 [place] [address] [facility] [facility] [address] [place] [address] Consulting Physician Pulmonary Disease 08/03/17 Khris Arthur MD 4921 [facility] [address] [place] [address] Medical Oncologist/Broadcast Operations Director Medical Oncology 10/23/17 [place] [address] [facility] [address] [place] [address] Surgeon Orthopedic Surgery 10/23/17 [place] [address] [address] Consulting Physician Pain Management 10/23/17 [place] [address] [facility] [address] [place] [address] Referring Physician General Surgery 01/26/18 [place] [address] [facility] [address] [place] [address] Consulting Physician Neurology 01/26/18 documented as of this encounter
--- OUTSIDE RECORDS SUMMARY | 2024-04-26 09:24 | XMS_ITS | Encounter Summary ---
Author Organization [facility] Address [address] [place] [address] Phone Care Team Providers Care Fitness And Wellness Coordinator Name Role Phone Liu Jerez MD Unavailable Albert Corbin MD Unavailable Justen Gale MD Primary Care Provider Khris Arthur MD Unavailable [phone] Ko Melendez MD Unavailable [phone] John Paul Moyer MD Unavailable Annel Rod MD Unavailable Anali MARSHALL MD, Carlos M. 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 Gender Identity Not on file Sexual Orientation Not on file documented as of this encounter Plan of Treatment Not on file documented as of this encounter Visit Diagnoses Not on filedocumented in this encounter Care Teams Fitness And Wellness Coordinator Relationship Specialty Start Date End Date Justen Gale MD [address] [address] PCP - General 10/09/17 Liu Jerez MD Consulting Physician Gastroenterology 07/28/17 [place] [address] [place] [id number] [place], [place] [id number] Consulting Physician Pulmonary Disease 08/03/17 Khris Arthur MD 4921 [facility] [address] [place] [address] Medical Oncologist/Gps Navigation Installer Medical Oncology 10/23/[address] [place] [address] [facility] [address] [place] [address] Surgeon Orthopedic Surgery 10/23/17 [place] [address] [facility] [address] [place] [address] Consulting Physician Pain Management 10/23/17 [place] [address] [facility] [facility] [address] [place] [address] Referring Physician General Surgery 01/26/18 [place] [address] [facility] [address] [place] [address] Consulting Physician Neurology 01/26/18 documented as of this encounter
--- OUTSIDE RECORDS SUMMARY | 2024-04-26 09:24 | XMS_ITS | Encounter Summary ---
Author Organization [facility] Address [address] [place] [address] Phone Care Team Providers Care Grinding Machine Operator Portable Name Role Phone Liu Jerez MD Unavailable Albert Corbin MD Unavailable Justen Gale MD Primary Care Provider Khris Arthur MD Unavailable [phone] Ko Melendez MD Unavailable John Paul Moyer MD Unavailable Annel Rod MD Unavailable Anali MARSHALL MD, Carlos M. 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 [address] [place] [address] Medical Oncologist/Cdl B Driver Medical Oncology 10/23/17 [place] [address] [facility] [address] [place] [address] Surgeon Orthopedic Surgery 10/23/17 [place] [address] [address] Consulting Physician Pain Management 10/23/17 [place] [address] [address] Referring Physician General Surgery 01/26/18 [place] [address] [facility] [address] [place] [address] Consulting Physician Neurology 01/26/18 documented as of this encounter
--- OUTSIDE RECORDS SUMMARY | 2024-04-26 09:24 | XMS_ITS | Encounter Summary ---
Author Organization [facility] Address [address] [place] [address] Phone Care Team Providers Care Forepart Laster Name Role Phone Liu Jerez MD Unavailable Albert Corbin MD Unavailable Justen Gale MD Primary Care Provider [phone] Khris Arthur MD Unavailable [phone] Ko Melendez MD Unavailable [phone] John Paul Moyer MD Unavailable Annel Rod MD Unavailable Anali MARSHALL MD, Carlos M. Unavailable [phone] Encounter Details Date Type Department Care Team (Late st Contact Info) Description 10/18/2019 Orders Only 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 Gender Identity Not on file Sexual Orientation Not on file documented as of this encounter Plan of Treatment Not on file documented as of this encounter Visit Diagnoses Diagnosis Malignant neoplasm of upper-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, unspecified estrogen receptor status (HCC)- Primary USP (current) use 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 inhibitors documented in this encounter Care Teams Forepart Laster Relationship Specialty Start Date End Date Justen Gale MD [address] [address] PCP - General 10/09/17 Liu Jerez MD Consulting Physician Gastroenterology 07/28/17 [place] [address] [facility] [address] [place] [address] Consulting Physician Pulmonary Disease 08/03/17 Khris Arthur MD 4921 [facility] [address] [place], [place] [id number] Medical Oncologist/Phonograph Needle Tip Maker Medical Oncology 10/23/17 [place] [address] [facility] [address] [place] [address] Surgeon Orthopedic Surgery 10/23/17 [place] [address] [facility] [address] [place] [address] Consulting Physician Pain Management 10/23/17 [place] [address] [facility] [address] [place] [address] Referring Physician General Surgery 01/26/18 [place] [address] [facility] [address] [place] [address] Consulting Physician Neurology 01/26/18 documented as of this encounter
--- OUTSIDE RECORDS SUMMARY | 2024-04-26 09:25 | XMS_ITS | Encounter Summary ---
Author Organization [facility] Healthcare Address [address] [place] [address] Care Team Providers Care Automotive Painter Helper Name Role Phone Liu Jerez MD Unavailable Albert Corbin MD Unavailable Justen Gale MD Primary Care Provider Khris Arthur MD Unavailable [phone] Ko Melendez MD Unavailable [phone] John Paul Moyer MD Unavailable [phone] Annel Rod MD Unavailable Anali MARSHALL MD, Carlos M. Unavailable [phone] Reason for Visit * Reason Comments Palpitations Encounter Details Date Type Department Care Team (Late st Contact Info) Description 06/27/2018 7:19 PM METAL TRIM ERECTOR - 06/28/2018 3:35 AM [facility] Emergency Department [address] [place] [address] Loren Knowles MD [address] [place] [address] [id number] [place] [address] Generalized anxiety disorder (Primary Dx); Urinary tract infection without hematuria, site unspecified; Essential hypertension; Type 2 diabetes mellitus with complication, unspecified whether assistant terminal manager insulin use ([facility]); 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 Kelli Adamson RN 06/28/18 010 L TRIM ERECTOR * Jos Whitmore RN - 06/27/2018 9:18 PM CST Bed: ED33 Expected date: Expected time: Means of arrival: Comments: Jos Whitmore RN 06/27/18 3290 L TRIM ERECTOR * Loren Knowles MD - 06/27/2018 7:51 [...] uric acid stone formation. Source: [facility].Last revised 05-04-2017 URINALYSIS, MICROSCOPIC ONLY - Abnormal [...] 2 diabetes mellitus with complication, unspecified whether assistant terminal manager insulin use ([facility]): Urinary tract infection without hematuria, site unspecified: [...] 2 diabetes mellitus with complication, unspecified whether assistant terminal manager insulin use ([facility]) 5. 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 Angioedema, initial encounter Astrid Zhu scribed for Loren Knowles MD, in the MD's presence. I electronically signed this note at 5:27 AM on 06/28/2018. Astrid Zhu 06/27/18 2228 Loren Knowles MD 06/28/18 0527 L TRIM ERECTOR * Farzaneh Salazar RN - 06/27/2018 4:16 PM CST Patient states that she has been having palpitations for a couple days L TRIM ERECTOR documented in this encounter Miscellaneous Notes * [...] waves: normal Loren Knowles MD 06/27/18 2219 L TRIM ERECTOR documented in this encounter Plan of Treatment Not on file documented as of this encounter Procedures Procedure Name Priority Date/Time Associated Diagnosis Comments URINALYSIS AND REFLEX TO MICROSCOPIC Routine 06/27/2018 8:00 PM METAL TRIM ERECTOR URINALYSIS, MICROSCOPIC ONLY Routine 06/27/2018 8:00 PM METAL TRIM ERECTOR XR CHEST PA LATERAL 2 VIEWS ED 06/27/2018 5:21 PM METAL TRIM ERECTOR EGFR STAT 06/27/2018 5:10 PM METAL TRIM ERECTOR DIFFERENTIAL AUTO STAT 06/27/2018 5:1 0 PM METAL TRIM ERECTOR PRO B-TYPE NATRIURETIC PEPTIDE STAT 06/27/2018 5:10 PM METAL TRIM ERECTOR CBC WITH AUTO DIFFERENTIAL STAT 06/27/2018 5:10 PM METAL TRIM ERECTOR TSH STAT 06/27/2018 5:10 PM METAL TRIM ERECTOR COMPREHENSIVE METABOLIC PANEL STAT 06/27/2018 5:10 PM METAL TRIM ERECTOR ECG 12-LEAD STAT 06/27/2018 4:13 PM METAL TRIM ERECTOR documented in this encounter Results * (ABNORMAL) Urinalysis, microscopic only (06/27/2018 8:00 PM METAL TRIM ERECTOR) WBC, ur 6-10(A) 0 - 5 /HPF [facility] RBC, ur 0-2 0 - 2 /HPF [facility] Epithelial cells, squamous, ur 1-5 0 - 5 /HPF [facility] Mucous, ur Present(A) [facility] Urine 06/27/2018 8:00 PM METAL TRIM ERECTOR 06/27/2018 8:12 PM METAL TRIM ERECTOR Narrative [facility] - 06/27/2018 9:32 PM METAL TRIM ERECTOR Loren Knowles MD LAB URINE ORDERABLES Final Resu lt [facility] [id number] Department [place] [address] * (ABNORMAL) Urinalysis reflex to microscopic (06/27/2018 8:00 PM METAL TRIM ERECTOR) Color, ur Yellow Yellow [facility] Clarity, [...] Negative [facility] Leukocyte esterase, ur 1+(A) Negative [facility] Urine 06/27/2018 8:00 PM METAL TRIM ERECTOR 06/27/2018 8:12 PM METAL TRIM ERECTOR Narrative MARY JANE - 06/27/2018 8:41 PM METAL TRIM ERECTOR ?? Urine pH is affected by diet, medications, systemic acid-base disturbances, and renal tubular function. ??pH may affect urinary stone formation. ??For example, urine pH below 6.0 may help reduce the tendency for calcium phosphate stones and pH greater than 6.0 may reduce the tendency for uric acid stone formation. Source: [facility] [employer]. Last revised 05-04-2017 us Loren Knowles MD LAB URINE ORDERABLES Final Resu lt [facility] [address] Department [place] [address] * XR Chest Pa Lateral 2 Vw (06/27/2018 5:21 PM METAL TRIM ERECTOR) Anatomical Region Laterality Modality Body, Chest N/A Computed Radiogr aphy 06/27/2018 5:27 PM METAL TRIM ERECTOR Impressions 06/27/2018 5:27 PM METAL TRIM ERECTOR Negative study. Electronically signed by: Fabienne Gaspar M.D. Narrative 06/27/2018 5:27 PM METAL TRIM ERECTOR RESULT: HISTORY: The patient is a 63-year-old [...] by: Fabienne Gaspar M.D. us Hermance Fortune USABILITY ARCHITECT IMG XR PROCEDURES Final Resu lt * Pro B-type natriuretic peptide (06/27/2018 5:10 PM METAL TRIM ERECTOR) NT-proBNP 23 <=300 pg/mL MARY JANE ARNOLD [...] 2017. Blood specimen (specimen) 06/27/2018 5:10 PM METAL TRIM ERECTOR 06/27/2018 7:21 PM METAL TRIM ERECTOR Narrative MARY JANE ARNOLD - 06/27/2018 7:44 PM METAL TRIM ERECTOR us Rudolph Bauman USABILITY ARCHITECT LAB BLOOD ORDERABLES Final R esult [facility] [id number] Department [place] [address] * eGFR (06/27/2018 5:10 PM METAL TRIM ERECTOR) eGFR 95 mL/min/1.7 3 m2 [facility] Comment: Interpretive Data Reference Interval Normal ?>/= 90 mL/min/1.73m2 Mildly decreased* ? 60 - 89 mL/min/1.73m2 Mildly to moderately decreased ?45 - 59 mL/min/1.73m2 Moderately to severely decreased ??30 - 44 mL/min/1.73m2 Severely decreased ?15 - 29 mL/min/1.73m2 Kidney Failure ?< 15 ??mL/min/1.73m2 *Relative to young adult level If -Ethiopian multiply value by 1.16. Estimated glomerular filtration [...] 2015. Blood specimen (specimen) 06/27/2018 5:10 PM METAL TRIM ERECTOR 06/27/2018 5:13 PM METAL TRIM ERECTOR Narrative MARY JANE ARNOLD - 06/27/2018 5:49 PM METAL TRIM ERECTOR Rudolph Bauman USABILITY ARCHITECT LAB BLOOD ORDERABLES Final R esult MARY JANE [address] Department [place] [address] * (ABNORMAL) Differential, auto (06/27/2018 5:10 PM METAL TRIM ERECTOR) Neutrophil abs 7.8(H) 1.7 - 6.5 K/cumm [facility] Imm gran abs 0.0 0.0 - 0.1 K/cumm [facility] Lymphocyte abs 2.6 0.8 - 3.3 K/cumm [facility] Monocyte abs 0.8 0.2 - 0.8 K/cumm [facility] Eosinophil abs 0.3 0.0 - 0.5 K/cumm [facility] Basophil abs 0.0 0.0 - 0.1 K/cumm [facility] Neutrophil pct 67.3 % [facility] Comment: Interpretive Data Percent cell count reference ranges are not reported, since discordance with absolute values may lead to misinterpretation of CBC data. Current Interpretive Data was last revised on 2017. Imm gran pct 0.4 % [facility] Comment: Interpretive Data Percent cell count reference ranges are not reported, since discordance with absolute values may lead to misinterpretation of CBC data. Current Interpretive Data was last revised on 2017. Lymphocyte pct 22.2 % [facility] Comment: Interpretive Data Percent cell count reference ranges are not reported, since discordance with absolute values may lead to misinterpretation of CBC data. Current Interpretive Data was last revised on 2017. Monocyte pct 7.1 % [facility] Comment: Interpretive Data Percent cell count reference ranges are not reported, since discordance with absolute values may lead to misinterpretation of CBC data. Current Interpretive Data was last revised on 2017. Eosinophil pct 2.6 % [facility] Comment: Interpretive Data Percent cell count reference ranges are not reported, since discordance with absolute values may lead to misinterpretation of CBC data. Current Interpretive Data was last revised on 2017. Basophil pct 0.4 % [facility] Comment: Interpretive Data Percent cell count reference ranges are not reported, since discordance with absolute values may lead to misinterpretation of CBC data. Current Interpretive Data was last revised on 2017. Blood specimen (specimen) 06/27/2018 5:10 PM METAL TRIM ERECTOR 06/27/2018 5:13 PM METAL TRIM ERECTOR Narrative MARY JANE ARNOLD - 06/27/2018 5:16 PM METAL TRIM ERECTOR [employer] LAB BLOOD ORDERABLES Final R esult Performing Organization Address [facility] Co de Phone Number MARY JANE ARNOLD [address] [facility] [place] [address] * TSH (06/27/2018 5:10 PM METAL TRIM ERECTOR) Pathologist [facility] Thyroid Stimulating Hormone 1.26 0.30 - 4.20 mcIUnit/mL [facility] Blood specimen (specimen) 06/27/2018 5:10 PM METAL TRIM ERECTOR 06/27/2018 5:13 PM METAL TRIM ERECTOR Narrative MARY JANE - 06/27/2018 5:49 PM METAL TRIM ERECTOR [employer] LAB BLOOD ORDERABLES Final R [facility] Performing Organization Address [facility] de Phone Number MARY JANE ARNOLD [address] [place] [address] * (ABNORMAL) Comprehensive metabolic panel (06/27/2018 5:10 PM METAL TRIM ERECTOR) Sodium 140 135 - 145 mmol/L [facility] Potassium, pl 4.4 3.3 - 4.9 mmol/L [facility] Chloride 98 97 - 110 mmol/L [facility] CO2 28 22 - 32 mmol/L [facility] Anion gap 14 2 - 15 mmol/L [facility] BUN 17 8 - 25 mg/dL [facility] Creatinine 0.66 0.60 - 1.10 mg/dL [facility] Glucose 131 70 - 199 mg/dL [facility] Comment: Interpretive Data Fasting glucose [...] CH Blood specimen (specimen) 06/27/2018 5:10 PM METAL TRIM ERECTOR 06/27/2018 5:13 PM METAL TRIM ERECTOR Narrative [facility] - 06/27/2018 5:49 PM METAL TRIM ERECTOR us Rudolph Bauman USABILITY ARCHITECT LAB BLOOD ORDERABLES Final R esult [facility] [address] Department [place] [address] * (ABNORMAL) CBC with auto differential (06/27/2018 5:10 PM METAL TRIM ERECTOR) WBC 11.6(H) 3.8 - 9.9 K/cumm C[facility]ER [...] RDW SD 51.4(H) 35.7 - 48.1 fL [facility] NRBC abs 0.00 0.00 - 0.01 K/cumm MARY JANE Blood specimen (specimen) 06/27/2018 5:10 PM METAL TRIM ERECTOR 06/27/2018 5:13 PM METAL TRIM ERECTOR Narrative MARY JANE - 06/27/2018 5:16 PM METAL TRIM ERECTOR Rudolph Bauman NP LAB BLOOD ORDERABLES Final R esult MARY JANE [address] Department [place] [address] * ECG 12 lead (06/27/2018 4:13 PM METAL TRIM ERECTOR) 06/27/2018 4:13 PM METAL TRIM ERECTOR Narrative [facility] - 06/28/2018 8:54 AM METAL TRIM ERECTOR Vent Rate: 91 bpm RR Interval: 657 msec CO Interval: 127 msec QRS Duration: 92 msec QT Interval: 333 msec QTC Interval: 382 msec P-R-T [place]: 45 - 16 - 70 degrees SINUS RHYTHM NORMAL ECG NO SIGNIFICANT CHANGE COMPARED TO PRIOR ECG Electronically Signed By: Ramon De MD, [facility] Loren Knowles MD ECG ORDERABLES Final Result Performing Organization Address [facility] Co de Phone Number [facility] documented in this encounter Visit Diagnoses Diagnosis Generalized anxiety disorder- Primary Urinary tract infection without hematuria, site unspecified Essential hypertension Unspecified essential hypertension Type 2 diabetes mellitus with complication, unspecified whether assistant terminal manager insulin use 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 Angioedema, initial encounter documented in this encounter Administered Medications Inactive Administered Medications - up to 3 most recent administrations Medication Order MAR Action Action Date Dose Rate Site dexamethasone (DECADRON) injection 10 mg 10 mg, intravenous, Administer over 2 Minutes, Once, On Mon06/27/18 at 2210, For 1 dose Given 06/27/2018 10:11 PM METAL TRIM ERECTOR 10 mg diphenhydrAMINE (BENADRYL) injection 25 mg 25 mg, intravenous, Administer over 2 Minutes, Once, On Mon06/27/18 at 2222, For 1 dose Given 06/27/2018 10:23 PM METAL TRIM ERECTOR 25 mg LORazepam (ATIVAN) tablet 1 mg 1 mg, sublingual, Once, On Mon06/27/18 at 1954, For 1 dose Given 06/27/2018 7:59 PM METAL TRIM ERECTOR 1 mg sodium chloride 0.9% bolus 1,000 mL 1,000 mL, intravenous, at 1,000 mL/hr, Administer over 1 Hours, Once, On Mon06/27/18 at 1954, For 1 dose New Bag 06/27/2018 8:00 PM METAL TRIM ERECTOR 1,000 mL 1000 mL/hr documented in this [...] Recently Administered Medications Times are shown in METAL TRIM ERECTOR. Scheduled Medication Order 06/26/2018 06/27/2018 06/28/2018 dexamethasone [...] RN) documented in this encounter Care Teams Automotive Painter Helper Relationship Specialty Start Date End Date Justen Gale MD [address] [facility] [address] [place] [address] PCP - General 10/09/17 Liu Jerez MD Consulting Physician Gastroenterology 07/28/17 [place] [address] [facility] [address] [place] [address] Consulting Physician Pulmonary Disease 08/03/17 Khris Arthur MD [address] [facility] [address] [place] [address] Medical Oncologist/Drum Plater Medical Oncology 10/23/[address] [place] [address] [facility] [address] [place] [address] Surgeon Orthopedic Surgery 10/23/17 [place] [address] [facility] [address] [place] [address] Consulting Physician Pain Management 10/23/17 [place] [address] [facility] [address] [place] [address] Referring Physician General Surgery 01/26/18 [place] [address] [facility] [address] [place] [address] Consulting Physician Neurology 01/26/18 documented as of this encounter
--- OUTSIDE RECORDS SUMMARY | 2024-04-26 09:25 | XMS_ITS | Encounter Summary ---
Author Organization [facility] Address [address] [place] [address] Phone Care Team Providers Care Machine Technician Name Role Phone Liu Jerez MD Unavailable Albert Corbin MD Unavailable Justen Gale MD Primary Care Provider Khris Arthur MD Unavailable [phone] Ko Melendez MD Unavailable John Paul Moyer MD Unavailable Annel Rod MD Unavailable Anali MARSHALL MD, Carlos M. Unavailable Encounter Details Date Type Department Care Team (Late st Contact Info) Description 08/24/[address] 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 Gender Identity Not on file Sexual [...] filedocumented in this encounter Care Teams Machine Technician Relationship Specialty Start Date End Date Justen Gale MD [address] [place] [id number] PCP - General 10/09/17 Liu Jerez MD Consulting Physician Gastroenterology 07/28/17 [place] [address] [facility] [address] [place] [address] Consulting Physician Pulmonary Disease 08/03/17 Khris Arthur MD [address] [facility] [address] [place] [address] Medical Oncologist/Consumer Educator Medical Oncology 10/23/17 [place] [address] [facility] [address] [place] [address] Surgeon Orthopedic Surgery 10/23/17 [place] [address] [facility] [address] [place] [address] Consulting Physician Pain Management 10/23/17 [place] [address] [facility] [address] [place] [address] Referring Physician General Surgery 01/26/18 [place] [address] [facility] [address] [place] [address] Consulting Physician Neurology 01/26/18 documented as of this encounter
--- OUTSIDE RECORDS SUMMARY | 2024-04-26 09:25 | XMS_ITS | Encounter Summary ---
Author Organization [facility] Address [address] [place] [address] Phone Care Team Providers Care Business Support Name Role Phone Liu Jerez MD Unavailable Albert Corbin MD Unavailable [phone] Justen Gale MD Primary Care Provider [phone] Khris Atrhur MD Unavailable [phone] Ko Melendez MD Unavailable [phone] John Paul Moyer MD Unavailable Annel Rod MD Unavailable Anali MARSHALL MD, Carlos M. Unavailable [phone] Reason for Visit * Oncology (Routine) - Closed Specialty Diagnoses / Procedures Referred By Contac t Referred To Contact Lab Diagnoses Malignant neoplasm of overlapping sites of left female breast, unspecified estrogen receptor status (HCC) LAB/ROV Procedures ONCBCN LAB APPOINTMENT Khris Longo MD Phone: tel: fax: [facility] Oncology [address] 7th [place] [address] [place] [address] Phone: tel: Referral ID Status Reason Start Date Expiration Date V isits Requested Visits Authorized [id number] Closed Specialty Services Required 07/11/2018 01/07/2019 12 12 Encounter Details Date Type Department Care Team (Late st Contact Info) Description 08/28/2018 1:00 PM CDT Lab [facility] Oncology [address] 7th [place] [address] [place] [address] Khris Arthur MD [address] [facility] [address] [place] [address] Malignant neoplasm of overlapping sites [...] on file 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 Calcium 10.0 8.5 - 10.3 mg/dL [facility] Bilirubin, total 0.4 0.1 - 1.2 mg/dL [facility] Protein, pl 8.4 6.5 - 8.5 g/dL [facility] Albumin 3.8 3.5 - 5.0 g/dL [facility] Alk phos 87 40 - 130 Units/L [facility] ALT 27 7 - 45 Units/L [facility] AST 30 10 - 45 Units/L [facility] Blood specimen (specimen) 08/28/2018 1:21 PM CDT 08/28/2018 1:35 PM CDT Narrative [facility] - 08/28/2018 2:10 PM CDT Darcy Goel NP LAB BLOOD ORDERABLES Final Result [facility] Department [place] [address] * (ABNORMAL) Differential, auto (08/28/2018 1:20 PM CDT) Neutrophil abs 7.2(H) 1.8 - 6.6 K/cumm [facility] Comment:Testing performed by : [facility], [address] [place] [phone] Lymphocyte abs 2.7 1.2 - 3.3 K/cumm [facility] Comment:Testing performed by : [facility], [address] [place] [phone] Monocyte abs 0.8 0.2 - 1.2 K/cumm [facility] Comment:Testing performed by : [facility], [address] [place] [phone] Eosinophil abs 0.3 0.0 - 0.5 K/cumm [facility] Comment:Testing performed by : [facility], [address] [place] [phone] Basophil abs 0.1 0.0 - 0.2 K/cumm [facility] Comment:Testing performed by : [facility], [address] [place] [phone] Neutrophil pct 64.8 % [facility] Comment: Interpretive Data Percent cell count reference ranges are not reported, since discordance with absolute values may lead to misinterpretation of CBC data. Current Interpretive Data was last revised on 2017. Testing performed by: [facility], [address] [place] [phone] Lymphocyte pct 24.2 % [facility] Comment: Interpretive Data Percent cell count reference ranges are not reported, since discordance with absolute values may lead to misinterpretation of CBC data. Current Interpretive Data was last revised on 2017. Testing performed by: [address] [phone] Monocyte pct 7.1 % [facility] Comment:Testing performed by : [facility], [address] [place] [phone] Eosinophil pct 2.8 % [facility] Comment:Testing performed by : [facility], [address] [place] [phone] Basophil pct 1.1 % [facility] Comment:Testing performed by : [facility], [address] [place] [phone] Blood specimen (specimen) 08/28/2018 1:20 PM CDT 08/28/2018 1:22 PM CDT Narrative [facility] - 08/28/2018 1:28 PM CDT Darcy Goel STOCK HANGER LAB BLOOD ORDERABLES Final Result [facility] [place] [address] * (ABNORMAL) CBC with auto differential (08/28/2018 1:20 PM CDT) WBC 11.1(H) 3.8 - 9.8 K/cumm [facility] Comment:Testing performed by : [facility], [address] [place] [phone] Hgb 12.4 12.1 - 15.1 g/dL [facility] Comment:Testing performed by : [address] [phone] Hct 38.8 36.1 - 44.3 % [facility] Comment:Testing performed by : [place] [phone] Plt 326 140 - 440 K/cumm [facility] Comment:Testing performed by : [facility], [address] [place] [phone] MPV 7.2 6.8 - 10.4 fL [facility] Comment:Testing performed by : [address] [phone] RBC 4.44 3.90 - 5.00 M/cumm [facility] Comment:Testing performed by : [address] [address] MCV 87.5 80.0 - 97.6 fL [facility] Comment:Testing performed by : [facility], [address] [place] [phone] MCH 27.9 26.7 - 33.7 pg [facility] Comment:Testing performed by : [facility], [address] [place] [phone] MCHC 31.9(L) 32.7 - 35.5 g/dL [facility] Comment:Testing performed by : [facility], [address] [place] [phone] RDW CV 14.5 11.8 - 14.6 % [facility] Comment:Testing performed by : [facility], [address] [place] [phone] NRBC abs 0.01 0.00 - 0.01 K/cumm [facility] Comment:Testing performed by : [facility], [address] [place] [phone] Blood specimen (specimen) 08/28/2018 1:20 PM CDT 08/28/2018 1:22 PM CDT Narrative [facility] - 08/28/2018 1:28 PM CDT Darcy Goel STOCK HANGER LAB BLOOD ORDERABLES Final Result [facility] Department of Laboratories [place], [place] [id number] documented in this encounter Visit Diagnoses Diagnosis Malignant neoplasm of overlapping sites of left female breast, unspecified estrogen receptor status (HCC) documented in this encounter Care Teams Business Support Relationship Specialty Start Date End Date Justen Gale MD [address] [address] PCP - General 10/09/17 Liu Jerez MD Consulting Physician Gastroenterology 07/28/17 [place] [address] [facility] [address] [place] [address] Consulting Physician Pulmonary Disease 08/03/17 Khris Arthur MD [address] [facility] [address] [place] [address] Medical Oncologist/Powder Press Operator Medical Oncology 10/23/17 [place] [address] [facility] [address] [place] [address] Surgeon Orthopedic Surgery 10/23/17 [place] [address] [facility] [address] [place] [address] Consulting Physician Pain Management 10/23/17 [place] [address] [facility] [address] [place] [address] Referring Physician General Surgery 01/26/18 [place] [address] [facility] [address] [place] [address] Consulting Physician Neurology 01/26/18 documented as of this encounter
--- OUTSIDE RECORDS SUMMARY | 2024-04-26 09:25 | XMS_ITS | Encounter Summary ---
Author Organization [facility] Address [address] [place] [address] Phone Care Team Providers Care Anatomy Teacher Name Role Phone Liu Jerez MD Unavailable Albert Corbin MD Unavailable [phone] Justen Gale MD Primary Care Provider Khris Arthur MD Unavailable [phone] Ko Melendez MD Unavailable John Paul Moyer MD Unavailable Annel Rod MD Unavailable Anali MARSHALL MD, Carlos M. Unavailable [phone] Encounter Details Date Type Department Care Team (Late st Contact Info) Description 06/25/[address] [facility] Oncology [address] 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 EHOLD CHORES documented in this encounter Plan of Treatment Not on file documented as of this encounter Visit Diagnoses Not on filedocumented in this encounter Care Teams Anatomy Teacher Relationship Specialty Start Date End Date Justen Gale MD [address] [address] PCP - General 10/09/17 Liu Jerez MD Consulting Physician Gastroenterology 07/28/17 [place] [address] [facility] [address] [place] [address] Consulting Physician Pulmonary Disease 08/03/17 Khris Arthur MD [address] [facility] [address] [place] [address] Medical Oncologist/Brand Marketing Coordinator Medical Oncology 10/23/17 [place] [address] [facility] [address] [place] [address] Surgeon Orthopedic Surgery 10/23/17 [place] [address] [address] Consulting Physician Pain Management 10/23/17 [place] [address] [address] Referring Physician General Surgery 01/26/18 [place] [address] [facility] [address] [place] [address] Consulting Physician Neurology 01/26/18 documented as of this encounter
--- OUTSIDE RECORDS SUMMARY | 2024-04-26 09:25 | XMS_ITS | Encounter Summary ---
Author Organization [facility] Address [address] [place] [address] Care Team Providers Care Mule Driver Name Role Phone Liu Jerez MD Unavailable Albert Corbin MD Unavailable [phone] Justen Gale MD Primary Care Provider Khris Arthur MD Unavailable [phone] Ko Melendez MD Unavailable John Paul Moyer MD Unavailable Annel Rod MD Unavailable Anali MARSHALL MD, Carlos M. Unavailable [phone] Encounter Details Date Type Department Care Team (Latest Contact Info) Description 06/27/2018 5:09 PM SQUIRT MACHINE OPERATOR - 06/27/2018 7:18 PM SQUIRT MACHINE OPERATOR Hospital Encounter [facility] Diagnostic Imaging [address] [place] [address] Discharge Disposition: Discharge to home [...] on file Legal Sex Female 12:24 AM SQUIRT MACHINE OPERATOR Gender Identity Not on file [...] LATERAL 2 VIEWS ED 06/27/2018 5:21 PM SQUIRT MACHINE OPERATOR documented in this encounter Results * XR Chest Pa Lateral 2 Vw (06/27/2018 5:21 PM SQUIRT MACHINE OPERATOR) Anatomical Region Laterality Modality Body, Chest N/A Computed Radiogr aphy 06/27/2018 5:27 PM SQUIRT MACHINE OPERATOR Impressions 06/27/2018 5:27 PM SQUIRT MACHINE OPERATOR Negative study. Electronically signed by: Fabienne Gaspar M.D. Narrative 06/27/2018 5:27 PM SQUIRT MACHINE OPERATOR RESULT: HISTORY: The patient is a 63-year-old [...] signed by: Fabienne Gaspar M.D. Rudolph Bauman INFORMATION TECHNOLOGY PROFESSOR IMG XR PROCEDURES Final Resu lt documented in this encounter Visit Diagnoses Not on filedocumented in this encounter Care Teams Mule Driver Relationship Specialty Start Date End Date Justen Glae MD 2 [facility] [address] [place] [address] PCP - General 10/09/17 Liu Jerez MD Consulting Physician Gastroenterology 07/28/[address] [place] [address] [facility] [address] [place] [address] Consulting Physician Pulmonary Disease 08/03/17 Khris Arthur MD [address] [facility] [address] [place] [address] Medical Oncologist/Server Systems Administrator Medical Oncology 10/23/[address] [place] [address] [facility] [address] [place] [address] Surgeon Orthopedic Surgery 10/23/17 [place] [address] [facility] [address] [place] [address] Consulting Physician Pain Management 10/23/[address] [place] [address] [facility] [address] [place] [address] Referring Physician General Surgery 01/26/18 [place] [address] [facility] [address] [place] [address] Consulting Physician Neurology 01/26/18 documented as of this encounter
--- OUTSIDE RECORDS SUMMARY | 2024-04-26 09:25 | XMS_ITS | Encounter Summary ---
Author Organization [facility] Address [address] [place] [address] Phone Care Team Providers Care Web Site Admin Name Role Phone Liu Jerez MD Unavailable Albert Corbin MD Unavailable Justen Gale MD Primary Care Provider [phone] Khris Arthur MD Unavailable [phone] Ko Melendez MD Unavailable [phone] John Paul Moyer MD Unavailable Annel Rod MD Unavailable Anali MARSHALL MD, Carlos M. 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 Gender Identity Not on file Sexual Orientation [...] as of this encounter Care Teams Web Site Admin Relationship Specialty Start Date End Date Justen Gale MD 2 [facility] [address] [place] [address] PCP - General 10/09/17 Liu Jerez MD Consulting Physician Gastroenterology 07/28/17 [place] [address] [facility] [address] [place] [address] Consulting Physician Pulmonary Disease 08/03/17 Khris Arthur MD [address] [facility] [address] [place] [address] Medical Oncologist/Transitional Nurse Medical Oncology 10/23/17 [place] [address] [address] Surgeon Orthopedic Surgery 10/23/17 [place] [address] [facility] [address] [place] [address] Consulting Physician Pain Management 10/23/17 [place] [address] [facility] [address] [place] [address] Referring Physician General Surgery 01/26/18 [place] [address] [facility] [address] [place] [address] Consulting Physician Neurology 01/26/18 documented as of this encounter
--- OUTSIDE RECORDS SUMMARY | 2024-04-26 09:25 | XMS_ITS | Encounter Summary ---
Author Organization [facility] Address [address] [place] [address] Phone Care Team Providers Care Bell Tier Name Role Phone Liu Jerez MD Unavailable Albert Corbin MD Unavailable Justen Gale MD Primary Care Provider Khris Arthur MD Unavailable [phone] Ko Melendez MD Unavailable John Paul Moyer MD Unavailable Annel Rod MD Unavailable Anali MARSHALL MD, Carlos M. 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 [address] [place] [address] Consulting Physician Pulmonary Disease 08/03/17 Khris Arthur MD [address] [facility] [address] [place] [address] Medical Oncologist/Pulpwood Buyer Medical Oncology 10/23/17 [place] [address] [facility] [address] [place] [address] Surgeon Orthopedic Surgery 10/23/17 [place] [address] [facility] [address] [place] [address] Consulting Physician Pain Management 10/23/[address] [place] [address] [facility] [address] [place] [address] Referring Physician General Surgery 01/26/18 [place] [address] [facility] [address] [place] [address] Consulting Physician Neurology 01/26/18 documented as of this encounter
--- OUTSIDE RECORDS SUMMARY | 2024-04-26 09:25 | XMS_ITS | Encounter Summary ---
Author Organization [facility] Address [address] [place] [address] Phone Care Team Providers Care Commercial Relationship Manager Name Role Phone Liu Jerez MD Unavailable Albert Corbin MD Unavailable [phone] Justen Gale MD Primary Care Provider Khris Arthur MD Unavailable [phone] Ko Melendez MD Unavailable John Paul Moyer MD Unavailable Annel Rod MD Unavailable Anali MARSHALL MD, Carlos M. 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 Gender Identity Not on file Sexual Orientation [...] as of this encounter Care Teams Commercial Relationship Manager Relationship Specialty Start Date End Date Justen Gale MD 2 [facility] [address] [place] [address] PCP - General 10/09/17 Liu Jerez MD Consulting Physician Gastroenterology 07/28/17 [place] [address] [facility] [address] [place] [address] Consulting Physician Pulmonary Disease 08/03/17 Khris Arthur MD 49[address] [facility] [address] [place] [address] Medical Oncologist/Mechanical Systems Control Engineer Medical Oncology 10/23/17 [place] [address] [facility] [address] [place] [address] Surgeon Orthopedic Surgery 10/23/17 [place] [address] [facility] [address] [place] [address] Consulting Physician Pain Management 10/23/17 [place] [address] [facility] [address] [place] [address] Referring Physician General Surgery 01/26/18 [place] [address] [facility] [address] [place] [address] Consulting Physician Neurology 01/26/18 documented as of this encounter
--- OUTSIDE RECORDS SUMMARY | 2024-04-26 09:25 | XMS_ITS | Encounter Summary ---
Author Organization [facility] Healthcare Address [address] [place] [address] Care Team Providers Care Ethnology Professor Name Role Phone Liu Jerez MD Unavailable Albert Corbin MD Unavailable Justen Gale MD Primary Care Provider Khris Arthur MD Unavailable [phone] Ko Melendez MD Unavailable John Paul Moyer MD Unavailable [phone] Annel Rod MD Unavailable Anali MARSHALL MD, Carlos M. 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 Gender Identity Not on file Sexual [...] failure Hypertensive heart disease with heart failure ([facility] - HYPERTENSIVE HEART DISEASE WITH HEART FAILURE Unspecified hypertensive heart disease with heart failure Type 2 diabetes mellitus with hyperglycemia ([facility]) ([facility]) - TYPE 2 DIABETES MELLITUS WITH HYPERGLYCEMIA snf current use of insulin ([facility]) ([facility]) - MACHINE PAN GREASER (CURRENT) USE OF INSULIN Restless legs syndrome [...] and shakiness which all occur concomitantly about detention through her meals. Denies hypoglycemia during these [...] ??? CVA (cerebral vascular accident) ([facility]) 01/24/2018 ??? Breast CA ([facility]) 01/24/2018 ??? Anxiety and depression 11/12/2017 ??? Uncontrolled type 2 diabetes mellitus with hyperglycemia, with long-term current use of insulin([facility]) 11/06/2017 ??? Allergy to drug 11/06/2017 ??? Dysuria 10/26/2017 ??? Acute left-sided low back pain with left-sided sciatica 10/23/2017 ??? Type 2 diabetes mellitus with neurologic complication, without long-term current use of insulin([facility]) 10/23/2017 ??? Essential hypertension 10/23/2017 ??? [...] NURIS - 10/04/2018 1:49 AM CDT Bed: [facility] Expected date: Expected time: Means of arrival: [...] in the ED Justen Langford MD 10/03/18 [id number] documented in this encounter Plan of Treatment [...] Glucose, POC 162 70 - 199 mg/dL [facility] Glucose comment 1 RN Notified [facility] Blood specimen (specimen) 10/04/2018 5:20 AM CDT 10/04/2018 5:20 AM CDT Narrative [facility] - 10/04/2018 5:22 AM CDT us Notinfile Unknown LAB POCT ORDERABLES - DEVICE F inal Result [facility] One [facility] [place] [address] * CT Abdomen Pelvis W Contrast (10/04/2018 [...] based on current clinical standards) [facility] Organism (CLINICALLY INSIGNIFICANT GROWTH [facility] Urine 10/04/2018 2:46 AM CDT 10/04/2018 6:48 AM CDT Narrative [facility] - 10/05/2018 9:04 AM CDT Urine culture reflexed based upon urinalysis results. Testing performed by [facility] Microbiology Laboratory ([phone]) us Kylee Gayle MD LAB MICROBIOLOGY - GENERAL ORDERABLES Final Result Performing Organization Address [facility] Co de Phone Number [facility] [place] [address] * (ABNORMAL) Urinalysis, microscopic only (10/04/2018 2:46 AM CDT) WBC, ur 11-20(A) 0 - 5 /HPF [facility] RBC, ur 6-10(A) 0 - 2 /HPF [facility] Epithelial cells, squamous, ur 1-5 0 - 5 /HPF [facility] Mucous, ur Present(A) [facility] Urine 10/04/2018 2:46 AM CDT 10/04/2018 2:52 AM CDT Narrative [facility] - 10/04/2018 3:11 AM CDT Kylee Gayle MD LAB URINE ORDERABLES Final Result Performing Organization Address [facility] Co de Phone Number [facility] Department [place] [address] * (ABNORMAL) Urinalysis reflex to microscopic and culture Urine (10/04/2018 2:46 AM CDT) Color, ur Yellow Yellow [facility] Clarity, ur Clear Clear [facility] Specific gravity, ur 1.021 1.010 - 1.025 [facility] pH, urine 7 [facility] Protein, ur ql Negative Negative [facility] Glucose, ur ql Negative Negative [facility] Ketones, ur Negative Negative [facility] Bilirubin, ur Negative Negative [facility] Blood, ur 1+(A) Negative [facility] Urobilinogen, ur <2.0 <2.0 mg/dL [facility] Nitrite, ur Negative Negative [facility] Leukocyte esterase, ur 1+(A) Negative [facility] Urine 10/04/2018 2:46 AM CDT 10/04/2018 2:52 AM CDT Narrative [facility] - 10/04/2018 3:00 AM CDT THE COLLECTION LOCATION IS [address] Urine pH is affected by diet, medications, systemic acid-base disturbances, and renal tubular function. ??pH may affect urinary stone formation. ??For example, urine pH below 6.0 may help reduce the tendency for calcium phosphate stones and pH greater than 6.0 may reduce the tendency for uric acid stone formation. Source: [facility]. Last revised 05-04-2017 Kylee Gayle MD LAB MICROBIOLOGY - GENERAL ORDERABLES Final Result Performing Organization Address [facility] de Phone Number [facility] [place] [address] * Lipase (10/04/2018 2:25 AM CDT) Pathologist [facility] Lipase 34 10 - 99 Units/L [facility] Blood specimen (specimen) 10/04/2018 2:25 AM CDT 10/04/2018 2:32 AM CDT Narrative [facility] - 10/04/2018 3:00 AM CDT THE COLLECTION LOCATION IS [address] Kylee Gayle MD LAB BLOOD ORDERABLES Final Result Performing Organization Address [facility] de Phone Number [facility] [place] [address] * Hepatic function panel (10/04/2018 2:25 AM CDT) Bilirubin, total 0.3 0.1 - 1.2 mg/dL [facility] Bilirubin, direct <0.2 0.1 - 0.3 mg/dL [facility] Protein, pl 8.0 6.5 - 8.5 g/dL [facility] Albumin 3.8 3.5 - 5.0 g/dL [facility] Alk phos 86 40 - 130 Units/L [facility] ALT 22 7 - 45 Units/L [facility] AST 21 10 - 45 Units/L [facility] Blood specimen (specimen) 10/04/2018 2:25 AM CDT 10/04/2018 2:32 AM CDT Narrative [facility] - 10/04/2018 3:36 AM CDT THE BJ COLLECTION LOCATION IS [facility] [id number] Kylee Gayle MD LAB BLOOD ORDERABLES Final Result [facility] One [facility] Department [place] [address] * XR Chest Pa Lateral 2 Vw [...] woman. ??Shortness of breath. Procedure Note Willem Kovasc MD - 10/04/2018 EXAMINATION: 2 view chest [...] CDT) TSH 1.61 0.30 - 4.20 mcIUnit/mL [facility] Blood specimen (specimen) 10/04/2018 12:58 AM CDT 10/04/2018 1:06 AM CDT Narrative [facility] - 10/04/2018 2:53 AM CDT us Notinfile Unknown LAB BLOOD ORDERABLES Final Res ult [facility] One [facility] Department [place] [address] * Pro B-type natriuretic peptide (10/04/2018 12:58 AM CDT) NT-proBNP <50 <=300 pg/mL [facility] Comment: Interpretive Comments: A. Dyspnea in [...] as well as advanced age. References: 1. Gigi LIANG et.al. Eur Heart J. 2006:27:330-337. 2. Tracy RW, Duyen BEE. J. AM Wang Cardiol: Cardiovasc Imag. 2009;2: 216- 225. Interpretive Data Last Revised Date: 2017. Blood specimen (specimen) 10/04/2018 12:58 AM CDT 10/04/2018 1:06 AM CDT Narrative [facility] - 10/04/2018 2:53 AM CDT us Notinfile Unknown LAB BLOOD ORDERABLES Final Res ult [facility] One [facility] Department [place] [address] * (ABNORMAL) Differential, auto (10/04/2018 12:58 AM CDT) Neutrophil abs 7.0(H) 1.7 - 6.5 K/cumm [facility] Imm gran abs 0.1 0.0 - 0.1 K/cumm [facility] Lymphocyte abs 2.7 0.8 - 3.3 K/cumm [facility] Monocyte abs 0.8 0.2 - 0.8 K/cumm [facility] Eosinophil abs 0.3 0.0 - 0.5 K/cumm [facility] Basophil abs 0.0 0.0 - 0.1 K/cumm [facility] Neutrophil pct 63.6 % [facility] Comment: Interpretive Data Percent cell count reference ranges are not reported, since discordance with absolute values may lead to misinterpretation of CBC data. Current Interpretive Data was last revised on 2017. Imm gran pct 0.7 % [facility] Comment: Interpretive Data Percent cell count reference ranges are not reported, since discordance with absolute values may lead to misinterpretation of CBC data. Current Interpretive Data was last revised on 2017. Lymphocyte pct 24.8 % [facility] Comment: Interpretive Data Percent cell count reference ranges are not reported, since discordance with absolute values may lead to misinterpretation of CBC data. Current Interpretive Data was last revised on 2017. Monocyte pct 7.7 % [facility] Comment: Interpretive Data Percent cell count reference ranges are not reported, since discordance with absolute values may lead to misinterpretation of CBC data. Current Interpretive Data was last revised on 2017. Eosinophil pct 2.9 % [facility] Comment: Interpretive Data Percent cell count reference ranges are not reported, since discordance with absolute values may lead to misinterpretation of CBC data. Current Interpretive Data was last revised on 2017. Basophil pct 0.3 % [facility] Comment: Interpretive Data Percent cell count reference ranges are not reported, since discordance with absolute values may lead to misinterpretation of CBC data. Current Interpretive Data was last revised on 2017. Blood specimen (specimen) 10/04/2018 12:58 AM CDT 10/04/2018 1:06 AM CDT Narrative [facility] - 10/04/2018 1:12 AM CDT Kylee Gayle MD LAB BLOOD ORDERABLES Final Result [facility] One [facility] Department [place] [address] * Troponin I (10/04/2018 12:58 AM CDT) Troponin I <0.03 0.00 - 0.03 ng/mL [facility] Comment: Interpretive Data: Normal plasma Troponin I [...] for Troponin assay. References: 1. Clin Chem 2013;59:4933-0060 2. Journal of the [place] College of Cardiology 2012;60:1581-98 Current Interpretive Data Last Revised Date: 2017. Blood specimen (specimen) 10/04/2018 12:58 AM CDT 10/04/2018 1:06 AM CDT Narrative [facility] - 10/04/2018 1:47 AM CDT THE COLLECTION LOCATION IS Kylee Gayle MD LAB BLOOD ORDERABLES Edite d Result - Final [facility] One [facility] Department [place] [address] * (ABNORMAL) Basic metabolic panel (10/04/2018 12:58 AM CDT) Sodium 138 135 - 145 mmol/L [facility] Potassium, pl 4.9 3.3 - 4.9 mmol/L [facility] Comment:Hemolyzed; (++); pot assium value may be falsely elevated by as much as 0.3 - 0.5 mmol/L. Suggest redraw and reanalysis. Chloride 102 97 - 110 mmol/L [facility] CO2 29 22 - 32 mmol/L [facility] Anion gap 7 2 - 15 mmol/L [facility] BUN 16 8 - 25 mg/dL [facility] Creatinine 0.64 0.60 - 1.10 mg/dL [facility] Glucose 218(H) 70 - 199 mg/dL [facility] Comment: Interpretive Data Fasting glucose >/= [...] 2017. Calcium 9.9 8.5 - 10.3 mg/dL [facility] Blood specimen (specimen) 10/04/2018 12:58 AM CDT 10/04/2018 1:06 AM CDT Narrative [facility] - 10/04/2018 1:47 AM CDT THE BJ COLLECTION LOCATION IS Kylee Gayle MD LAB BLOOD ORDERABLES Final Result [facility] One [facility] Department [place] [address] * (ABNORMAL) CBC with auto differential (10/04/2018 12:58 AM CDT) WBC 11.0(H) 3.8 - 9.9 K/cumm [facility] Hgb 12.9 11.9 - 15.5 g/dL [facility] Hct 40.3 35.6 - 45.5 % [facility] Plt 340 150 - 400 K/cumm [facility] MPV 9.7 9.1 - 12.3 fL [facility] RBC 4.54 3.90 - 5.20 M/cumm [facility] MCV 88.8 81.3 - 96.4 fL [facility] MCH 28.4 27.1 - 33.3 pg [facility] MCHC 32.0(L) 32.3 - 35.7 g/dL [facility] RDW CV 14.1 11.1 - 14.9 % [facility] RDW SD 45.7 35.7 - 48.1 fL [facility] NRBC abs 0.00 0.00 - 0.01 K/cumm [facility] Blood specimen (specimen) (Blood, Venous) 10/04/2018 12:58 AM CDT 10/04/2018 1:06 AM CDT Narrative [facility] - 10/04/2018 1:12 AM CDT THE BJ COLLECTION LOCATION IS Kylee Gayle MD LAB BLOOD ORDERABLES Final Result [facility] Department [place] [address] * ECG 12-LEAD (10/03/2018 11:46 PM CDT) Narrative [facility] - 10/03/2018 11:46 PM CDT Justen Langford [...] in the ED Justen Langford MD 10/03/18 1105 Kylee Gayle MD ECG ORDERABLES Final Resu lt [facility] * POCT glucose (10/03/2018 11:25 PM CDT) Glucose, POC 192 70 - 199 mg/dL [facility] Blood specimen (specimen) 10/03/2018 11:25 PM CDT 10/03/2018 11:25 PM CDT Narrative [facility] - 10/03/2018 11:25 PM CDT us Notinfile Unknown LAB POCT ORDERABLES - DEVICE F inal Result [facility] One [facility] [place] [address] documented in this encounter Visit Diagnoses Diagnosis [...] 10/03/2018 documented in this encounter Care Teams Ethnology Professor Relationship Specialty Start Date End Date Justen Gale MD [address] [address] PCP - General 10/09/17 Liu Jerez MD Consulting Physician Gastroenterology 07/28/17 [place] [address] [facility] [address] [place] [address] Consulting Physician Pulmonary Disease 08/03/17 Khris Arthur MD [address] [facility] [address] [place] [address] Medical Oncologist/Second Steward Medical Oncology 10/23/17 [place] [address] [facility] [address] [place] [address] Surgeon Orthopedic Surgery 10/23/17 [place] [address] [facility] [address] [place] [address] Consulting Physician Pain Management 10/23/17 [place] [address] [facility] [address] [place] [address] Referring Physician General Surgery 01/26/18 [place] [address] [facility] [address] [place] [address] Consulting Physician Neurology 01/26/18 documented as of this encounter
--- OUTSIDE RECORDS SUMMARY | 2024-04-26 09:25 | XMS_ITS | Encounter Summary ---
Author Organization [facility] Address [address] [place] [address] Phone Care Team Providers Care Carburizer Name Role Phone Liu Jerez MD Unavailable Albert Corbin MD Unavailable Justen Gale MD Primary Care Provider [phone] Khris Arthur MD Unavailable [phone] Ko Melendez MD Unavailable John Paul Moyer MD Unavailable [phone] Annel Rod MD Unavailable Anali MARSHALL MD, Carlos M. Unavailable [phone] Reason for Visit * Oncology (Routine) - Closed Specialty Diagnoses / Procedures Referred By Contac t Referred To Contact Medical Oncology / Oncology Diagnoses Malignant neoplasm of overlapping sites of left female breast, unspecified estrogen receptor status (HCC) LAB/ROV Procedures ONCBCN CLINIC APPOINTMENT REQUEST RETURN Khris Arthur MD Phone: tel: fax: Khris Arthur MD [address] [facility] [address] [place] [address] Phone: tel: fax: Referral ID Status Reason Start Date Expiration Date V isits Requested Visits Authorized [id number] Closed Specialty Services Required 07/11/2018 01/07/2019 12 12 Encounter Details Date Type Department Care Team (Late st Contact Info) Description 08/28/2018 1:30 PM CDT Office Visit [facility] Oncology [address] [facility] 7th [place] [address] [place] [id number] Khris Arthur MD [address] [facility] [address] [place] [address] Malignant neoplasm of overlapping sites [...] on file 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 3. Cytology on 07/21/2014 [...] meals., Disp: , Rfl: ??? lancets (ONETOUCH DELGroundWork LANCETS) 33 gauge misc, by Not Applicable [...] Primary documented in this encounter Care Teams Carburizer Relationship Specialty Start Date End Date Justen Gale MD [address] [address] PCP - General 10/09/17 Liu Jerez MD Consulting Physician Gastroenterology 07/28/17 [place] [address] [id number] [place] [address] Consulting Physician Pulmonary Disease 08/03/17 [place] [address] [place] [address] [address] [place] [address] Medical Oncologist/Outside Medical Sales Representative Medical Oncology 10/23/17 [place] [address] [address] Surgeon Orthopedic Surgery 10/23/17 [place] [address] [address] Consulting Physician Pain Management 10/23/17 [place] [address] [address] Referring Physician General Surgery 01/26/18 [place] [address] [address] Consulting Physician Neurology 01/26/18 documented as of this encounter
--- OUTSIDE RECORDS SUMMARY | 2024-04-26 09:25 | XMS_ITS | Encounter Summary ---
Author Organization [facility] Address [address] [place] [address] Phone Care Team Providers Care Channel Development Manager Name Role Phone Liu Jerez MD Unavailable Albert Corbin MD Unavailable Justen Gale MD Primary Care Provider [phone] Khris Arthur MD Unavailable [phone] Ko Melendez MD Unavailable [phone] John Paul Moyer MD Unavailable Annel Rod MD Unavailable Anali MARSHALL MD, Carlos M. Unavailable [phone] Reason for Referral * Diagnostic Imaging (Routine) - Closed Specialty Diagnoses / Procedures Referred By Contac t Referred To Contact Diagnoses Thyroid nodule Procedures US Guided Thyroid Fine Needle Aspiration 1st Lesion Rj Phillips MD Phone: tel: fax: [facility] [address] [facility] [place] [address] Referral ID Status Reason Start Date Expiration Date Visits Re quested Visits Authorized [id number] Closed 08/21/2018 03/01/2020 1 1 Reason for Visit * Consultation (Routine) - Closed Specialty Diagnoses / Procedures Referred By Contac t Referred To Contact Endocrinology Diagnoses Thyroid nodule Justen Gale MD Phone: tel: fax: [facility] (All Locations) Referral ID Status Reason Start Date Expiration Date V isits Requested Visits Authorized [id number] Closed Specialty Services Required 06/27/2018 01/06/2020 12 12 Encounter Details Date Type Department Care Team (Latest Contact Info) Description 08/21/2018 11:00 AM CDT Office Visit [facility] Endocrinology Metabolism and Lipid [address] [facility] 5th [place] [address] [place] [address] Thyroid nodule (Primary Dx) Social History Tobacco Use Types Packs/Day Years Used Date Smoking Tobacco: Former Smokeless Tobacco: Never Comments:remote tobacco use Alcohol Use Standard Drinks/Week Comments No 0 (1 standard drink = 0.6 oz pur e alcohol) Comments No Sex and Gender Information Value Date Recorded Sex Assigned at Not on file 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 ?? 2016 [employer] Information is for End User's use only and may not be sold, redistributed or otherwise used for commercial purposes. All illustrations and images included in CareNotes?? are the copyrighted property of [employer] or [employer]. The above information is an case work aide only. It is not intended as medical [...] The aspirates were handed to the cytopathology advanced manufacturing technician for processing. Instructions were given to the [...] goiter documented in this encounter Care Teams Channel Development Manager Relationship Specialty Start Date End Date Justen Gale MD 2 [facility] [address] [place] [address] PCP - General 10/09/17 Liu Jerez MD Consulting Physician Gastroenterology 07/28/17 [place] [address] [facility] [address] [place] [address] Consulting Physician Pulmonary Disease 08/03/17 Khris Arthur MD [address] [facility] [address] [place] [address] Medical Oncologist/Core Shaper Sides Medical Oncology 10/23/17 [place] [address] [facility] [address] [place] [address] Surgeon Orthopedic Surgery 10/23/17 [place] [address] [facility] [address] [place] [address] Consulting Physician Pain Management 10/23/17 [place] [address] [facility] [address] [place] [address] Referring Physician General Surgery 01/26/18 [place] [address] [facility] [address] [place] [address] Consulting Physician Neurology 01/26/18 documented as of this encounter
--- OUTSIDE RECORDS SUMMARY | 2024-04-26 09:25 | XMS_ITS | Encounter Summary ---
Author Organization [facility] Address [address] [place] [address] Phone Care Team Providers Care Assistant Professor Of Radiology Name Role Phone Liu Jerez MD Unavailable Albert Corbin MD Unavailable Justen Gale MD Primary Care Provider Khris Arthur MD Unavailable [phone] Ko Melendez MD Unavailable [phone] John Paul Moyer MD Unavailable Annel Rod MD Unavailable Anali MARSHALL MD, Carlos M. Unavailable Encounter Details Date Type Department Care Team (Late st Contact Info) Description 06/27/2018 Telephone [facility] Oncology [address] 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 Karly Marques 57 called regarding an abnormal us of thyroid that was ordered by pcp and he recommended to have a biopsy. She wants to know if we can refer her to a Dr here in order for her to have the biopsy done here. Tana put a note in [employer] stating they are supposed to be sending us results. But upon checking I do not have it in [employer] under media. Call back number . Letme know if you need me to call her primary to request them again and if you need me to refer her. [place] received above message. Attempted to call back patient and unable to speak to her. Called PCP. Ms Marques already called primary to ask for a referral to [facility]. Nurse I spoke to already put the referral in. EQUIPMENT OPERATOR documented in this encounter Plan of Treatment Not on file documented as of this encounter Visit Diagnoses Not on filedocumented in this encounter Care Teams Assistant Professor Of Radiology Relationship Specialty Start Date End Date Justen Gale MD [address] [address] PCP - General 10/09/17 Liu Jerez MD Consulting Physician Gastroenterology 07/28/17 [place] [address] [place] [id number] [place] [address] Consulting Physician Pulmonary Disease 08/03/17 Khris Arthur MD 4921 [facility] [address] [place] [address] Medical Oncologist/Remelter Medical Oncology 10/23/17 [place] [address] [address] [place] [address] Surgeon Orthopedic Surgery 10/23/17 [place] [address] [address] [place] [address] Consulting Physician Pain Management 10/23/17 [place] [address] [address] [place] [address] Referring Physician General Surgery 01/26/18 [place] [address] [address] [place] [address] Consulting Physician Neurology 01/26/18 documented as of this encounter
--- OUTSIDE RECORDS SUMMARY | 2024-04-26 09:25 | XMS_ITS | Encounter Summary ---
Author Organization [facility] Address [address] [place] [address] Phone Care Team Providers Care Roller Mechanic Name Role Phone Liu Jerez MD Unavailable [phone] Albert Corbin MD Unavailable Justen Gale MD Primary Care Provider Khris Arthur MD Unavailable [phone] Ko Melendez MD Unavailable [phone] John Paul Moyer MD Unavailable Annel Rod MD Unavailable Anali MARSHALL MD, Carlos M. Unavailable Encounter Details Date Type Department Care Team (Late st Contact Info) Description 08/07/2018 Orders Only [facility] Rheumatology 49[address] [facility] Medicine 5th [place] [address] [place] [address] Madison Hernandez CMA Social History Tobacco Use Types Packs/Day Years Used Date Smoking Tobacco: Former Smokeless Tobacco: Never Comments:remote tobacco use Alcohol Use Standard Drinks/Week Comments No 0 (1 standard drink = 0.6 oz pur e alcohol) Comments No Sex and Gender Information Value Date Recorded Sex Assigned at Not on file 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 Gender Identity Not on file Sexual [...] 4 added in this encounter Care Teams Roller Mechanic Relationship Specialty Start Date End Date Justen Gale MD 2 [facility] [address] [place] [address] PCP - General 10/09/17 Liu Jerez MD Consulting Physician Gastroenterology 07/28/17 [place] [address] [facility] [address] [place] [address] Consulting Physician Pulmonary Disease 08/03/17 Khris Arthur MD 4921 [facility] [address] [place], [place] [address] Medical Oncologist/Roll Up Helper Medical Oncology 10/23/17 [place] [address] [address] [facility] [address] [place] [address] Surgeon Orthopedic Surgery 10/23/17 [place] [address] [address] Consulting Physician Pain Management 10/23/17 [place] [address] [address] Referring Physician General Surgery 01/26/18 [place] [address] [address] [facility] [address] [place] [address] Consulting Physician Neurology 01/26/18 documented as of this encounter
--- OUTSIDE RECORDS SUMMARY | 2024-04-26 09:25 | XMS_ITS | Encounter Summary ---
Author Organization [facility] Address [address] [place] [address] Phone Care Team Providers Care Knife Setter Name Role Phone Liu Jerez MD Unavailable [phone] Albert Corbin MD Unavailable Justen Gale MD Primary Care Provider Khris Arthur MD Unavailable [phone] Ko Melendez MD Unavailable [phone] John Paul Moyer MD Unavailable Annel Rod MD Unavailable Anali MARSHALL MD, Carlos M. Unavailable [phone] Encounter Details Date Type Department Care Team (Late st Contact Info) Description 05/04/2018 Orders Only [facility] Oncology [address] 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 Gender Identity Not on file Sexual [...] documented as of this encounter Care Teams Knife Setter Relationship Specialty Start Date End Date Justen Gale MD 2 [facility] [address] [place] [address] PCP - General 10/09/17 Liu Jerez MD Consulting Physician Gastroenterology 07/28/17 [place] [address] [facility] [address] [place] [address] Consulting Physician Pulmonary Disease 08/03/17 Khris Arthur MD [address] [place] [address] [address] [place], [place] [id number] Medical Oncologist/Poll Watcher Medical Oncology 10/23/17 [place] [address] [facility] [address] [place] [address] Surgeon Orthopedic Surgery 10/23/17 [place] [address] [address] Consulting Physician Pain Management 10/23/17 [place] [address] [address] Referring Physician General Surgery 01/26/18 [place] [address] [address] [facility] [address] [place] [address] Consulting Physician Neurology 01/26/18 documented as of this encounter
--- OUTSIDE RECORDS SUMMARY | 2024-04-26 09:25 | XMS_ITS | Encounter Summary ---
Author Organization [facility] Address [address] [place] [address] Phone Care Team Providers Care Kiln Car Unloader Name Role Phone Liu Jerez MD Unavailable [phone] Albert Corbin MD Unavailable [phone] Justen Gale MD Primary Care Provider [phone] Khris Arthur MD Unavailable [phone] Ko Melendez MD Unavailable [phone] John Paul Moyer MD Unavailable Annel Rod MD Unavailable Anali MARSHALL MD, Carlos M. Unavailable [phone] Reason for Visit * Consultation (Routine) - Closed Specialty Diagnoses / Procedures Referred By Contac t Referred To Contact Endocrinology Diagnoses Thyroid nodule Justen Gale MD Phone: tel: fax: [facility] (All Locations) Referral ID Status Reason Start Date Expiration Date V isits Requested Visits Authorized [id number] Closed Specialty Services Required 06/27/2018 01/06/2020 12 12 Encounter Details Date Type Department Care Team (Late st Contact Info) Description 08/07/2018 1:40 PM CDT Office Visit [facility] Endocrinology Metabolism and Lipid 49[address] 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 Recently, her learning and development consultant, Dr. Deshpande noted a thyroid nodule. An [...] in 2011. Graves was managed by an learning and development consultant at [facility]. She was placed on methimazole but discontinued [...] 08/07/2018 documented in this encounter Care Teams Kiln Car Unloader Relationship Specialty Start Date End Date Justen Gale MD 2 [facility] [address] [place] [address] PCP - General 10/09/17 Liu Jerez MD Consulting Physician Gastroenterology 07/28/17 [place] [address] [facility] [address] [place] [address] Consulting Physician Pulmonary Disease 08/03/17 Khris Arthur MD 4921 [facility] [address] [place] [address] Medical Oncologist/[place] Former Brace End Medical Oncology 10/23/17 [place] [address] [facility] [address] [place] [address] Surgeon Orthopedic Surgery 10/23/17 [place] [address] [facility] [address] [place] [address] Consulting Physician Pain Management 10/23/17 [place] [address] [facility] [address] [place] [address] Referring Physician General Surgery 01/26/18 [place] [address] [facility] [address] [place] [address] Consulting Physician Neurology 01/26/18 documented as of this encounter
--- OUTSIDE RECORDS SUMMARY | 2024-04-26 09:25 | XMS_ITS | Encounter Summary ---
Author Organization [facility] Address [address] [place] [address] Phone Care Team Providers Care Landfill Attendant Name Role Phone Liu Jerez MD Unavailable [phone] Albert Corbin MD Unavailable [phone] Justen Gale MD Primary Care Provider [phone] Khris Arthur MD Unavailable [phone] Ko Melendez MD Unavailable John Paul Moyer MD Unavailable [phone] Annel Rod MD Unavailable Anali MARSHALL MD, Carlos M. 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 Gender Identity Not on file Sexual [...] documented as of this encounter Care Teams Landfill Attendant Relationship Specialty Start Date End Date Justen Gale MD 2 [facility] [address] [place] [address] PCP - General 10/09/17 Liu Jerez MD Consulting Physician Gastroenterology 07/28/17 [place] [address] [facility] [address] [place] [address] Consulting Physician Pulmonary Disease 08/03/17 Khris Arthur MD 4921 [facility] [address] [place] [address] Medical Oncologist/Police Shift Commander Medical Oncology 10/23/17 [place] [address] [facility] [address] [place] [address] Surgeon Orthopedic Surgery 10/23/17 [place] [address] [facility] [address] [place] [address] Consulting Physician Pain Management 10/23/17 [place] [address] [facility] [address] [place] [address] Referring Physician General Surgery 01/26/18 [place] [address] [facility] [address] [place] [address] Consulting Physician Neurology 01/26/18 documented as of this encounter
--- OUTSIDE RECORDS SUMMARY | 2024-04-26 09:25 | XMS_ITS | Encounter Summary ---
Author Organization [facility] Address [address] [place] [address] Care Team Providers Care Mobile Crane Operator Name Role Phone Liu Jerez MD Unavailable Albert Corbin MD Unavailable [phone] Justen Gale MD Primary Care Provider Khris Arthur MD Unavailable [phone] Ko Melendez MD Unavailable [phone] John Paul Moyer MD Unavailable Annel Rod MD Unavailable Anali MARSHALL MD, Carlos M. Unavailable Encounter Details Date Type Department Care Team (Late st Contact Info) Description 08/21/2018 Orders Only 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 MOHSEN SALAZAR Gender: ??F : ??1955 (Age: 63) Address: ??[address], [place], [place] ??[address] [facility] #: ??[id number] Taken:08/21/2018 Received:08/21/2018 Reported: 08/23/2018 Patient Type: [facility] Ancillary ?? Service: Radiology Location: [facility] Physician(s): ??Rj Phillips M.D. FINAL DIAGNOSIS A. [...] determined by the Surgical Pathology Department at [facility] as part of an ongoing research quality assurance specialist program and in compliance with federally [...] determined by the Surgical Pathology Department of [facility]. ??It has not been cleared or approved by the U. S. Food and Drug Administration. Rj Phillips MD LAB CYTOLOGY ORDERABLES Final R esult documented in this encounter Visit Diagnoses Not on filedocumented in this encounter Care Teams Mobile Crane Operator Relationship Specialty Start Date End Date Justen Gale MD 2 [facility] [address] [place] [address] PCP - General 10/09/17 Liu Jerez MD Consulting Physician Gastroenterology 07/28/17 [place] [address] [facility] [address] [place] [address] Consulting Physician Pulmonary Disease 08/03/17 Khris Arthur MD 4921 [facility] [address] [place] [address] Medical Oncologist/Surgical Services Manager Medical Oncology 10/23/17 [place] [address] [facility] [address] [place] [address] Surgeon Orthopedic Surgery 10/23/17 [place] [address] [facility] [address] [place] [address] Consulting Physician Pain Management 10/23/17 [place] [address] [facility] [address] [place] [address] Referring Physician General Surgery 01/26/18 [place] [address] [address] [place] [address] Consulting Physician Neurology 01/26/18 documented as of this encounter
--- OUTSIDE RECORDS SUMMARY | 2024-04-26 09:25 | XMS_ITS | Encounter Summary ---
Author Organization [facility] Facility Care Team Providers Care Graphics Programmer Name Role Phone Liu Jerez MD Unavailable Albert Corbin MD Unavailable Justen Gale MD Primary Care Provider [phone] Khris Arthur MD Unavailable [phone] Ko Melendez MD Unavailable [phone] John Paul Moyer MD Unavailable Annel Rod MD Unavailable Anali MARSHALL MD, Carlos M. 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 [address] [place] [address] Consulting Physician Pulmonary Disease 08/03/17 Khris Arthur MD 4921 [facility] [address] [place] [address] Medical Oncologist/Mental Telepathist Medical Oncology 10/23/[address] [place] [address] [facility] [address] [place] [address] Surgeon Orthopedic Surgery 10/23/17 [place] [address] [facility] [address] [place] [address] Consulting Physician Pain Management 10/23/[address] [place] [address] [facility] [address] [place] [address] Referring Physician General Surgery 01/26/18 [place] [address] [facility] [address] [place] [address] Consulting Physician Neurology 01/26/18 documented as of this encounter
--- OUTSIDE RECORDS SUMMARY | 2024-04-26 09:25 | XMS_ITS | Encounter Summary ---
Author Organization [facility] Facility Care Team Providers Care Time Broker Name Role Phone Liu Jerez MD Unavailable Albert Corbin MD Unavailable [phone] Justen Gale MD Primary Care Provider [phone] Khris Arthur MD Unavailable [phone] Ko Melendez MD Unavailable [phone] John Paul Moyer MD Unavailable Annel Rod MD Unavailable Anali MARSHALL MD, Carlos M. 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 Gender Identity Not on file Sexual Orientation Not on file documented as of this encounter Plan of Treatment Not on file documented as of this encounter Visit Diagnoses Not on filedocumented in this encounter Care Teams Time Broker Relationship Specialty Start Date End Date Justen Gale MD 2 [facility] [address] [place] [address] PCP - General 10/09/17 Liu Jerez MD Consulting Physician Gastroenterology 07/28/17 [place] [address] [facility] [address] [place] [address] Consulting Physician Pulmonary Disease 08/03/17 Khris Arthur MD 4921 [facility] [address] [place] [address] Medical Oncologist/Vat Packer Medical Oncology 10/23/17 [place] [address] [facility] [address] [place] [address] Surgeon Orthopedic Surgery 10/23/17 [place] [address] [facility] [address] [place] [address] Consulting Physician Pain Management 10/23/17 [place] [address] [facility] [address] [place] [address] Referring Physician General Surgery 01/26/18 [place] [address] [facility] [address] [place] [address] Consulting Physician Neurology 01/26/18 documented as of this encounter
--- OUTSIDE RECORDS SUMMARY | 2024-04-26 09:26 | XMS_ITS | Encounter Summary ---
Author Organization [facility] Address [address] [place] [address] Phone Care Team Providers Care Zinc Furnace Charger Name Role Phone Liu Jerez MD Unavailable Albert Corbin MD Unavailable Justen Gale MD Primary Care Provider Khris Arthur MD Unavailable [phone] Ko Melendez MD Unavailable [phone] John Paul Moyer MD Unavailable Annel Rod MD Unavailable Anali MARSHALL MD, Carlos M. Unavailable [phone] Encounter Details Date Type Department Care Team (Late st Contact Info) Description 04/27/[address] 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 Gender Identity Not on file Sexual Orientation Not on file documented as of this encounter Plan of Treatment Not on file documented as of this encounter Visit Diagnoses Not on filedocumented in this encounter Care Teams Zinc Furnace Charger Relationship Specialty Start Date End Date Justen Gale MD [address] [address] PCP - General 10/09/17 Liu Jerez MD Consulting Physician Gastroenterology 07/28/17 [place] [address] [id number] [place] [address] Consulting Physician Pulmonary Disease 08/03/17 Khris Arthur MD 4921 [facility] [address] [place] [address] Medical Oncologist/Ball Points Inspector Medical Oncology 10/23/17 [place] [address] [address] Surgeon Orthopedic Surgery 10/23/17 [place] [address] [address] Consulting Physician Pain Management 10/23/17 [place] [address] [address] Referring Physician General Surgery 01/26/18 [place] [address] [facility] [address] [place] [address] Consulting Physician Neurology 01/26/18 documented as of this encounter
--- OUTSIDE RECORDS SUMMARY | 2024-04-26 09:26 | XMS_ITS | Encounter Summary ---
Author Organization [facility] Address [address] [place] [address] Phone Care Team Providers Care Engraving Press Operator Name Role Phone Liu Jerez MD Unavailable Albert Corbin MD Unavailable Justen Gale MD Primary Care Provider Khris Arthur MD Unavailable [phone] Ko Melendez MD Unavailable [phone] John Paul Moyer MD Unavailable Annel Rod MD Unavailable Anali MARSHALL MD, Carlos M. Unavailable Reason for Visit * Reason Onset Date Comments Med Refill 03/23/2018 Encounter Details Date Type Department Care Team (Late st Contact Info) Description 03/23/2018 Telephone [facility] Oncology [address] [facility] 7th [place] [address] [place] [address] Nancy Dhillon [place] Med Refill Social History Tobacco Use Types Packs/Day Years Used Date Smoking Tobacco: Former Smokeless Tobacco: Never Comments:remote tobacco use Alcohol Use Standard Drinks/Week Comments No 0 (1 standard drink = 0.6 oz pur e alcohol) Comments No Sex and Gender Information Value Date Recorded Sex Assigned at Not on file 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 Medication was e-scribed andsent to them. I called the patient and left message informing her of the refill and to contact pharmacy for crop picker. Also left nurse number to call back if she had any further concerns. TO CHIP FRYER documented in this encounter Plan of Treatment Not on file documented as of this encounter Visit Diagnoses Not on filedocumented in this encounter Care Teams Engraving Press Operator Relationship Specialty Start Date End Date Justen Gale MD [address] [address] PCP - General 10/09/17 Liu Jerez MD Consulting Physician Gastroenterology 07/28/17 [place] [address] [facility] [address] [place] [address] Consulting Physician Pulmonary Disease 08/03/17 Khris Arthur MD [address] [facility] [address] [place] [address] Medical Oncologist/Ambulatory Care Medical Oncology 10/23/17 [place] [address] [facility] [address] [place] [address] Surgeon Orthopedic Surgery 10/23/17 [place] [address] [address] Consulting Physician Pain Management 10/23/17 [place] [address] [facility] [address] [place] [address] Referring Physician General Surgery 01/26/18 [place] [address] [facility] [address] [place] [address] Consulting Physician Neurology 01/26/18 documented as of this encounter
--- OUTSIDE RECORDS SUMMARY | 2024-04-26 09:26 | XMS_ITS | Encounter Summary ---
Author Organization [facility] Address [address] [place] [address] Phone Care Team Providers Care Fingernail Sculpturer Name Role Phone Liu Jerez MD Unavailable [phone] Albert Corbin MD Unavailable [phone] Justen Gale MD Primary Care Provider [phone] Khris Arthur MD Unavailable [phone] Ko Melendez MD Unavailable John Paul Moyer MD Unavailable Annel Rod MD Unavailable Anali MARSHALL MD, Carlos M. 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 [address] [place] [address] Consulting Physician Pulmonary Disease 08/03/17 [place] [address] [place] [address] [address] [place] [address] Medical Oncologist/Marine Fireman Medical Oncology 10/23/17 [place] [address] [address] Surgeon Orthopedic Surgery 10/23/17 [place] [address] [address] Consulting Physician Pain Management 10/23/[address] [place] [address] [facility] [address] [place] [address] Referring Physician General Surgery 01/26/18 [place] [address] [address] Consulting Physician Neurology 01/26/18 documented as of this encounter
--- OUTSIDE RECORDS SUMMARY | 2024-04-26 09:26 | XMS_ITS | Encounter Summary ---
Author Organization [facility] Address [address] [place] [address] Phone Care Team Providers Care Application Development Team Lead Name Role Phone Liu Jerez MD Unavailable Albert Corbin MD Unavailable [phone] Justen Gale MD Primary Care Provider Khris Arthur MD Unavailable [phone] Ko Melendez MD Unavailable [phone] John Paul Moyer MD Unavailable Annel Rod MD Unavailable Anali MARSHALL MD, Carlos M. 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 [address] [place] [address] Consulting Physician Pulmonary Disease 08/03/17 [place] [address] [place] [address] [address] [place] [address] Medical Oncologist/Heading Pinner Medical Oncology 10/23/17 [place] [address] [address] Surgeon Orthopedic Surgery 10/23/17 [place] [address] [address] Consulting Physician Pain Management 10/23/[address] [place] [address] [facility] [address] [place] [address] Referring Physician General Surgery 01/26/18 [place] [address] [address] Consulting Physician Neurology 01/26/18 documented as of this encounter
--- OUTSIDE RECORDS SUMMARY | 2024-04-26 09:27 | XMS_ITS | Encounter Summary ---
Author Organization [facility] Address [address] [place] [address] Care Team Providers Care Cake Tester Name Role Phone Liu Jerez MD Unavailable [phone] Albert Corbin MD Unavailable [phone] Justen Gale MD Primary Care Provider [phone] Khris Arthur MD Unavailable [phone] Ko Melendez MD Unavailable John Paul Moyer MD Unavailable Annel Rod MD Unavailable Anali MARSHALL MD, Carlos M. Unavailable [phone] Reason for Visit * Reason Comments Chest Pain Shortness of Breath Palpitations Hyperglycemia Encounter Details Date Type Department Care Team (Late st Contact Info) Description 02/24/2018 12:27 AM CDT - 02/24/2018 5:00 AM CDT Emergency [facility] Emergency Department [address] [place] [address] [place] [address] [facility] [address] [place] [address] Acute cystitis without hematuria (Primary Dx); Chest [...] file Legal Sex Female 12:24 AM NEON PUMPER Gender Identity Not on file Sexual Orientation [...] Everywhere. 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 She has been experiencing lightheadedness, nausea, diffuse abdominal pain, polyuria, and polydipsia. She additionally reports mildCP, SOB, and palpitations. She denies fever, chills, or cough. History provided by: Patient call center dispatcher used: No Patient History Patient Active Problem List Diagnosis Date Noted ??? Dyslipidemia ??? History of breast cancer ??? Other chronic pain ??? CVA (cerebral vascular accident) (CMS/HCC) 01/24/2018 ??? Breast CA (CMS/HCC) 01/24/2018 ??? Anxiety and depression 11/12/2017 ??? Uncontrolled type 2 diabetes mellitus with hyperglycemia, with long-term current use of insulin([facility]) 11/06/2017 ??? Allergy to drug 11/06/2017 ??? Dysuria 10/26/2017 ??? Acute left-sided low back pain with left-sided sciatica 10/23/2017 ??? Type 2 diabetes mellitus with neurologic complication, without long-term current use of insulin([facility]/HCC) 10/23/2017 ??? Essential hypertension 10/23/2017 ??? Long-term current use of opiate analgesic 10/23/2017 ??? Lumbosacral spondylosis without myelopathy 10/23/2017 ??? Radiculopathy, lumbosacral region 10/23/2017 ??? Spinal stenosis of lumbar region without neurogenic claudication 10/23/2017 ??? 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 ??? Type 2 diabetes mellitus with hyperglycemia, without long-term current use of insulin ([facility]) ??? Constipation ??? 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 Cancer of overlapping sites of left female breast (CMS/[facility]) 10/13/2017 ??? Chronic anticoagulation ??? [...] MARY JANE ARNOLD Comment:Testing performed by : [facility], [address] [facility], [place]., [address] Organism (CLINICALLY INSIGNIFICANT GROWTH MARY JANE ARNOLD Urine, clean voided 02/24/2018 3:22 AM CDT 02/24/2018 5:12 AM CDT Narrative [facility] - 02/25/2018 7:41 AM NEON PUMPER Urine culture reflexed based upon urinalysis results. Testing performed by [facility] Microbiology Laboratory ([phone]) Erick [place] MD LAB MICROBIOLOGY - GENERAL ORDERABLES Final Result Performing Organization Address [facility] de Phone Number MARY JANE [address] Department [place] [address] * (ABNORMAL) Urinalysis, microscopic only (02/24/2018 3:22 [...] Result Performing Organization Address [facility] de Phone Number MARY JANE ARNOLD [address] Department [place] [address] * (ABNORMAL) Urinalysis reflex to microscopic and [...] mg/dL [facility] Nitrite, ur Negative Negative [facility] Leukocyte esterase, ur 1+(A) Negative [facility] Urine, clean voided 02/24/2018 3:22 AM CDT 02/24/2018 3:25 AM CDT Narrative [facility] - 02/24/2018 3:37 AM CDT ?? Urine pH is affected by diet, medications, systemic acid-base disturbances, and renal tubular function. ??pH may affect urinary stone formation. ??For example, urine pH below 6.0 may help reduce the tendency for calcium phosphate stones and pH greater than 6.0 may reduce the tendency for uric acid stone formation. Source: [facility]. Last revised 05-04-2017 us Erick [place] MD LAB MICROBIOLOGY - GENERAL ORDERABLES Final Result Performing Organization Address [facility] Co de Phone Number [facility] [address] Department [place] [address] * ECG 12 lead (02/24/2018 3:20 AM CDT) Patient age 62 years [facility] Interpretation Text SINUS RHYTHM WITH SINUS ARRHYTHMIANONSPECIFIC T-WAVE ABNORMALITYBORDERLINE ECGPREVIOUS TRACIN01/23/2018 16.32 [facility] Comment:Physician Interprete r Dr. Suleiman Hdz M.D. Ventricular Rate EKG/Min 72 /min [facility] P Wave Duration 108 ms [facility] QRS-Interval (MSEC) 82 ms [facility] ME-Interval (MSEC) 137 ms [facility] QT Interval 387 ms [facility] QTc 408 ms [facility] QTC Interval ms [facility] P [place] 52 deg [facility] QRS [place] 31 deg [facility] T [place] 62 deg [facility] 02/24/2018 3:20 AM CDT us Girish Wilkins MD ECG ORDERABLES Final Result Performing Organization Address [facility] de Phone Number [facility] * Troponin I (02/24/2018 2:05 AM CDT) [...] BLOOD ORDERABLES Final Re sult MARY JANE [address] Department [place] [address] * eGFR (02/24/2018 2:05 AM CDT) eGFR 101 mL/min/1.7 3 m2 MARY JANE Comment: Interpretive Data Reference Interval Normal ?>/= 90 mL/min/1.73m2 Mildly decreased* ? 60 - 89 mL/min/1.73m2 Mildly to moderately decreased ?45 - 59 mL/min/1.73m2 Moderately to severely decreased ??30 - 44 mL/min/1.73m2 Severely decreased ?15 - 29 mL/min/1.73m2 Kidney Failure ?< 15 ??mL/min/1.73m2 *Relative to young adult level If -Martiniquais multiply value by 1.16. Estimated glomerular filtration [...] MD LAB BLOOD ORDERABLES Final Re sult [facility] [address] Department [place] [address] * (ABNORMAL) Comprehensive metabolic panel (02/24/2018 2:05 AM CDT) Sodium 135 135 - 145 mmol/L [facility] Potassium, pl 4.2 3.5 - 5.1 mmol/L [facility] Chloride 106 100 - 114 mmol/L [facility] CO2 24 22 - 32 mmol/L [facility] Anion gap 9 8 - 16 mmol/L [facility] BUN 17 8 - 24 mg/dL [facility] Creatinine 0.55(L) 0.60 - 1.30 mg/dL [facility] [...] JANE - 02/24/2018 2:34 AM CDT us Girihs Wilkins MD LAB BLOOD ORDERABLES Final Re sult MARY JANE [address] Department [place] [address] * XR Chest 1 Vw Portable (02/24/2018 [...] AM CDT 02/24/2018 1:00 AM CDT Narrative [facility] - 02/24/2018 1:02 AM CDT Erick [place] MD LAB BLOOD ORDERABLES Final Result Performing Organization Address [facility] Co de Phone Number MARY JANE ARNOLD [address] [facility] [place] [address] * (ABNORMAL) Protime-INR (02/24/2018 12:58 AM CDT) Pathologist [facility] PT 17.0(H) 9.5 - 13.0 sec [facility] INR 1.49(H) 0.90 - 1.20 [facility] Blood specimen (specimen) 02/24/2018 12:58 AM CDT 02/24/2018 1:00 AM CDT Narrative [facility] - 02/24/2018 1:08 AM CDT Erick [place] MD LAB BLOOD ORDERABLES Final Result Performing Organization Address [facility] de Phone Number BCPUJA ARNOLD [address] [facility] [place] [address] * B-type natriuretic peptide (02/24/2018 12:58 AM CDT) Pathologist [facility] B-Type Natriuretic Peptide (BNP) 47 0 - 100 pg/mL [facility] Blood specimen (specimen) 02/24/2018 12:58 AM CDT 02/24/2018 1:00 AM CDT Narrative [facility] - 02/24/2018 1:24 AM CDT Erick [place] MD LAB BLOOD ORDERABLES Final Result Performing Organization Address [facility] de Phone Number BCPUJA ARNOLD [address] Department [place] [address] * (ABNORMAL) CBC with auto differential (02/24/2018 12:58 AM CDT) WBC 12.3(H) 3.8 - 9.9 K/cumm [facility] Hgb 11.4(L) 11.9 - 15.5 g/dL [facility] Hct 37.4 35.6 - 45.5 % [facility] Plt 324 150 - 400 K/cumm [facility] MPV 10.5 9.1 - 12.3 fL [facility] RBC 4.24 3.90 - 5.20 M/cumm [facility] MCV 88.2 81.3 - 96.4 fL [facility] MCH 26.9(L) 27.1 - 33.3 pg [facility] MCHC 30.5(L) 32.3 - 35.7 g/dL [facility] RDW CV 14.7 11.1 - 14.9 % [facility] RDW SD 47.4 35.7 - 48.1 fL [facility] NRBC abs 0.00 0.00 - 0.01 K/cumm [facility] Blood specimen (specimen) 02/24/2018 12:58 AM CDT 02/24/2018 1:00 AM CDT Narrative [facility] - 02/24/2018 1:02 AM CDT us Erick [place] MD LAB BLOOD ORDERABLES Final Result Performing Organization Address City/State/[facility] Co de Phone Number [facility] [address] Department [place] [address] * ECG 12 lead (02/24/2018 12:25 AM CDT) Patient age 62 years [facility] Interpretation Text SINUS RHYTHMNORMAL ECGPREVIOUS TRACIN01/23/2018 16.32 [facility] Comment:Physician Interprete r Dr. Suleiman Hdz M.D. Ventricular Rate EKG/Min 76 /min [facility] P Wave Duration 108 ms [facility] QRS-Interval (MSEC) 82 ms [facility] ME-Interval (MSEC) 129 ms [facility] QT Interval 356 ms [facility] QTc 384 ms [facility] QTC Interval ms [facility] P [place] 28 deg [facility] QRS [place] 41 deg [facility] T [place] 65 deg [facility] 02/24/2018 12:2 5 AM CDT Erick [place] MD ECG ORDERABLES Final Resu lt [facility] * (ABNORMAL) POCT glucose (02/24/2018 12:25 AM CDT) Glucose, POC 354(H) 70 - 199 mg/dL MARY JANE Blood specimen (specimen) 02/24/2018 12:25 AM CDT 02/24/2018 12:25 AM CDT Narrative MARY JANE ARNOLD - 02/24/2018 12:26 AM CDT Notinfile Unknown LAB POCT ORDERABLES - DEVICE F inal Result Performing Organization Address City/[facility]/ZIP Co de Phone Number [facility] [address] Department [place] [address] documented in this encounter Visit [...] 02/24/2018 documented in this encounter Care Teams Cake Tester Relationship Specialty Start Date End Date Justen Gale MD [address] [address] PCP - General 10/09/17 Liu Jerez MD Consulting Physician Gastroenterology 07/28/17 [place] [address] [facility] [address] [place] [address] Consulting Physician Pulmonary Disease 08/03/17 Khris Arthur MD [address] [facility] [address] [place] [address] Medical Oncologist/Ward Secretary Medical Oncology 10/23/17 [place] [address] [facility] [address] [place] [address] Surgeon Orthopedic Surgery 10/23/17 [place] [address] [facility] [address] [place] [address] Consulting Physician Pain Management 10/23/17 [place] [address] [facility] [address] [place] [address] Referring Physician General Surgery 01/26/18 [place] [address] [facility] [address] [place] [address] Consulting Physician Neurology 01/26/18 documented as of this encounter
--- OUTSIDE RECORDS SUMMARY | 2024-04-26 09:27 | XMS_ITS | Encounter Summary ---
Author Organization [facility] Address [address] [place] [address] Phone Care Team Providers Care Interior Assemblies Installer Name Role Phone Liu Jerez MD Unavailable Albert Corbin MD Unavailable Justen Gale MD Primary Care Provider Khris Arthur MD Unavailable [phone] Ko Melendez MD Unavailable [phone] John Paul Moyer MD Unavailable Annel Rod MD Unavailable Anali MARSHALL MD, Carlos M. 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 Gender Identity Not on file Sexual [...] documented as of this encounter Care Teams Interior Assemblies Installer Relationship Specialty Start Date End Date Justen Gale MD [address] [address] PCP - General 10/09/17 Liu Jerez MD Consulting Physician Gastroenterology 07/28/17 [place] [address] [facility] [address] [place] [address] Consulting Physician Pulmonary Disease 08/03/17 Khris Arthur MD [address] [facility] [address] [place] [address] Medical Oncologist/Auto Fleet Manager Medical Oncology 10/23/17 [place] [address] [facility] [address] [place] [address] Surgeon Orthopedic Surgery 10/23/17 [place] [address] [facility] [address] [place] [address] Consulting Physician Pain Management 10/23/17 [place] [address] [facility] [address] [place] [address] Referring Physician General Surgery 01/26/18 [place] [address] [facility] [address] [place] [address] Consulting Physician Neurology 01/26/18 documented as of this encounter
--- OUTSIDE RECORDS SUMMARY | 2024-04-26 09:27 | XMS_ITS | Encounter Summary ---
Author Organization [facility] Healthcare Address [address] [place] [address] Care Team Providers Care Wildfire Prevention Specialist Name Role Phone Liu Jerez MD Unavailable Albert Corbin MD Unavailable [phone] Justen Gale MD Primary Care Provider Khris Arthur MD Unavailable [phone] Ko Melendez MD Unavailable John Paul Moyer MD Unavailable Reason for Visit * Reason Comments Hyperglycemia Encounter Details Date Type Department Care Team (Late st Contact Info) Description 01/14/2018 11:13 PM CDT - 01/15/2018 4:42 AM CDT Emergency [facility] Emergency Department [address] [place] [address] [place] [address] 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 * Diabetes, General Information (Beninese) documented in this encounter Medications at [...] with hyperglycemia, with long-term current use of insulin([facility]) 11/06/2017 ??? Allergy to drug 11/06/2017 ??? Dysuria 10/26/2017 ??? Acute left-sided low back pain with left-sided sciatica 10/23/2017 ??? Type 2 diabetes mellitus with neurologic complication, without long-term current use of insulin([facility]) 10/23/2017 ??? Essential hypertension 10/23/2017 ??? Long-term current use of opiate analgesic 10/23/2017 ??? Lumbosacral spondylosis without myelopathy 10/23/2017 ??? Radiculopathy, lumbosacral region 10/23/2017 ??? Spinal stenosis of lumbar region without neurogenic claudication 10/23/2017 ??? 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 ??? Type 2 diabetes mellitus with hyperglycemia, without long-term current use of insulin ([facility]) ??? Constipation ??? 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 Cancer of overlapping sites of left female breast (CMS/HCC) 10/13/2017 ??? Chronic anticoagulation ??? Restless leg syndrome ??? Chest pressure 08/01/2017 ??? Positive blood culture 08/01/2017 ??? Hyponatremia 08/01/2017 ??? Diet-controlled diabetes mellitus ([facility]/HCC) 08/01/2017 ??? LUL (obstructive sleep apnea) [...] is normal. Nursing note and vitals reviewed. [facility] Labs Reviewed URINALYSIS AND REFLEX TO MICROSCOPIC [...] acid stone formation. Source: [facility].Last revised 05-04-2017 CBC WITH AUTO DIFFERENTIAL - [...] complication, with long-term current use of insulin ([facility]) This note is prepared by Adriel Penny, [...] arrival: Comments: CLOSED Mariely Mcmillan RN 01/14/18 2171 * Kip Keller RN - 01/14/2018 9:15 [...] Glucose, POC 183 70 - 199 mg/dL [facility] Blood specimen (specimen) 01/15/2018 3:10 AM CDT 01/15/2018 3:10 AM CDT Narrative [facility] - 01/15/2018 3:14 AM CDT us Notinfile Unknown LAB POCT ORDERABLES - DEVICE F inal Result [facility] [address] [address] Department of Laboratories [place] [id number] * eGFR (01/15/2018 12:15 AM CDT) eGFR 98 mL/min/1.7 3 m2 [facility] Comment: Interpretive Data Reference Interval Normal [...] Final Result Performing Organization Address [facility] de Phone Number BCPUJA ARNOLD [address] Department Results [employer] [place], [place] [id number] * (ABNORMAL) Urinalysis, microscopic only (01/15/2018 12:15 AM CDT) WBC, ur 0-5 0 - 5 /HPF [facility] RBC, ur 0-5 0 - 5 /HPF [facility] Epithelial cells, squamous, ur 1-5 0 - 5 /HPF [facility] Mucous, ur Present(A) [facility] Urine, clean voided 01/15/2018 12:15 AM CDT 01/15/2018 12:24 AM CDT Narrative [facility] - 01/15/2018 12:51 AM CDT Erick aDvis MD LAB URINE ORDERABLES Final Result Performing Organization Address [facility] de Phone Number [facility] AR[place] [address] [place] [address] * Differential, auto (01/15/2018 12:15 AM CDT) Neutrophil abs 6.4 1.7 - 6.5 K/cumm [facility] Imm gran abs 0.0 0.0 - 0.1 K/cumm [facility] Lymphocyte abs 2.4 0.8 - 3.3 K/cumm [facility] Monocyte abs 0.8 0.2 - 0.8 K/cumm [facility] Eosinophil abs 0.5 0.0 - 0.5 K/cumm [facility] Basophil abs 0.0 0.0 - 0.1 K/cumm [facility] Neutrophil pct 62.9 % [facility] Comment: Interpretive Data Percent cell count reference ranges are not reported, since discordance with absolute values may lead to misinterpretation of CBC data. Current Interpretive Data was last revised on 2017. Imm gran pct 0.4 % [facility] Comment: Interpretive Data Percent cell count reference ranges are not reported, since discordance with absolute values may lead to misinterpretation of CBC data. Current Interpretive Data was last revised on 2017. Lymphocyte pct 23.7 % [facility] Comment: Interpretive Data Percent cell count reference ranges are not reported, since discordance with absolute values may lead to misinterpretation of CBC data. Current Interpretive Data was last revised on 2017. Monocyte pct 8.0 % [facility] Comment: Interpretive Data Percent cell count reference ranges are not reported, since discordance with absolute values may lead to misinterpretation of CBC data. Current Interpretive Data was last revised on 2017. Eosinophil pct 4.5 % [facility] Comment: Interpretive Data Percent cell count reference ranges are not reported, since discordance with absolute values may lead to misinterpretation of CBC data. Current Interpretive Data was last revised on 2017. Basophil pct 0.5 % [facility] Comment: Interpretive Data Percent cell count reference ranges are not reported, since discordance with absolute values may lead to misinterpretation of CBC data. Current Interpretive Data was last revised on 2017. Blood specimen (specimen) 01/15/2018 12:15 AM CDT 01/15/2018 12:23 AM CDT Narrative [facility] - 01/15/2018 12:30 AM CDT us Erick Davis MD LAB BLOOD ORDERABLES Final Result [facility] [address] [place] [address] * B-type natriuretic peptide (01/15/2018 12:15 AM CDT) B-Type Natriuretic Peptide (BNP) 23 0 - 100 pg/mL [facility] Blood specimen (specimen) 01/15/2018 12:15 AM CDT 01/15/2018 12:23 AM CDT Narrative [facility] - 01/15/2018 12:59 AM CDT Erick Davis MD LAB BLOOD ORDERABLES Final Result Performing Organization Address [facility] Phone Number MARY JANE [address] [place] [address] * Troponin I (01/15/2018 12:15 AM CDT) Pathologist [facility] Troponin I <0.03 [...] Final Result Performing Organization Address [facility] de Phone Number MARY JANE [address] [address] [place] [address] * (ABNORMAL) Urinalysis reflex to microscopic and [...] acid stone formation. Source: [facility]. Last revised 05-04-2017 Erick Davis MD LAB MICROBIOLOGY - GENERAL ORDERABLES Final Result [facility] [address] [address] [place] [address] * (ABNORMAL) Comprehensive metabolic panel (01/15/2018 12:15 [...] Davis MD LAB BLOOD ORDERABLES Final Result [facility] [address] [address] [place] [address] * (ABNORMAL) CBC with auto differential (01/15/2018 [...] NRBC abs 0.00 0.00 - 0.01 K/cumm [facility] Blood specimen (specimen) 01/15/2018 12:15 AM CDT 01/15/2018 12:23 AM CDT Narrative [facility] - 01/15/2018 12:30 AM CDT us Erick Davis MD LAB BLOOD ORDERABLES Final Result Performing Organization Address City/[facility]/ZIP Co de Phone Number [facility] [address] [address] [place] [address] * ECG 12 lead (01/14/2018 9:25 PM CDT) Pathologist [facility] Patient age 62 years [facility] Interpretation Text SINUS RHYTHMPOSSIBLE RIGHT VENTRICULAR CONDUCTION DELAYBORDERLINE ECGPREVIOUS TRACIN12/15/2017 23.13No significant change compared to prior ECG [facility] Comment:Physician Interprete r Dr. Ramon De M.D. Ventricular Rate EKG/Min 91 /min [facility] P Wave Duration 111 ms [facility] QRS-Interval (MSEC) 83 ms [facility] CO-Interval (MSEC) 132 ms [facility] QT Interval 341 ms [facility] QTc 395 ms [facility] QTC Interval ms [facility] P [place] 13 deg [facility] QRS [place] 7 deg [facility] T [place] 60 deg [facility] 01/14/2018 9:25 PM CDT us Taylor Benedict MD ECG ORDERABLES Final Resul t Performing Organization Address City/[facility] Co de Phone Number [facility] * (ABNORMAL) POCT glucose (01/14/2018 9:19 PM CDT) Pathologist [facility] Glucose, POC 393(H) 70 - 199 mg/dL [facility] Glucose comment 1 RN/MD Notified [facility] Blood specimen (specimen) 01/14/2018 9:19 PM CDT 01/14/2018 9:19 PM CDT Narrative [facility] - 01/14/2018 9:22 PM CDT us Notinfile Unknown LAB POCT ORDERABLES - DEVICE F inal Result [facility] AR[place]OLD [address] [place] [address] documented in this encounter Visit [...] 01/14/2018 documented in this encounter Care Teams Wildfire Prevention Specialist Relationship Specialty Start Date End Date Justen Gale MD [address] [facility] [address] [place] [address] PCP - General 10/09/17 Liu Jerez MD Consulting Physician Gastroenterology 07/28/17 [place] [address] [facility] [address] [place] [address] Consulting Physician Pulmonary Disease 08/03/17 [place] [address] [place] [address] [address] [place] [address] Medical Oncologist/Clinical Applications Manager Medical Oncology 10/23/17 [place] [address] [facility] [address] [place] [address] Surgeon Orthopedic Surgery 10/23/17 [place] [address] [facility] [address] [place] [address] Consulting Physician Pain Management 10/23/17 documented as of this encounter
--- OUTSIDE RECORDS SUMMARY | 2024-04-26 09:27 | XMS_ITS | Encounter Summary ---
Author Organization [facility] Healthcare Address [address] [place] [address] Care Team Providers Care Almond Blancher Operator Name Role Phone Liu Jerez MD Unavailable [phone] Albert Corbin MD Unavailable [phone] Justen Gale MD Primary Care Provider [phone] Khris Arthur MD Unavailable [phone] Ko Melendez MD Unavailable John Paul Moyer MD Unavailable Encounter Details Date Type Department Care Team (Latest Contact Info) Description 01/23/2018 4:34 PM CDT - 01/23/2018 11:59 PM CDT Hospital Encounter [facility] [address] [place] [address] Discharge Disposition: Discharge to home [...] on file 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 Gender Identity Not on file Sexual Orientation [...] on filedocumented in this encounter Care Teams Almond Blancher Operator Relationship Specialty Start Date End Date Justen Gale MD [address] [place] [address] PCP - General 10/09/17 Liu Jerez MD Consulting Physician Gastroenterology 07/28/17 [place] [address] [facility] [address] [place] [address] Consulting Physician Pulmonary Disease 08/03/17 Khris Arthur MD [address] [facility] [address] [place] [address] Medical Oncologist/Psychological Operations Specialist Medical Oncology 10/23/17 [place] [address] [facility] [address] [place] [address] Surgeon Orthopedic Surgery 10/23/17 [place] [address] [facility] [address] [place] [address] Consulting Physician Pain Management 10/23/17 documented as of this encounter
--- OUTSIDE RECORDS SUMMARY | 2024-04-26 09:27 | XMS_ITS | Encounter Summary ---
Author Organization [facility] Healthcare Address [address] [place] [address] Care Team Providers Care Kick Press Setter Name Role Phone Liu Jerez MD Unavailable [phone] Maria D Corbin MD Unavailable Justen Gale MD Primary Care Provider Khris Arthur MD Unavailable [phone] Ko Melendez MD Unavailable John Paul Moyer MD Unavailable Annel Rod MD Unavailable Anali MARSHALL MD, Carlos M. Unavailable Reason for Visit * Reason Comments Flu Symptoms Vomiting Shortness of Breath Encounter Details Date Type Department Care Team (Late st Contact Info) Description 03/17/2018 7:16 AM CHIEF NURSING OFFICER - 03/17/2018 2:55 PM [facility] Emergency [facility] Emergency Department [address] [place] [address] Maria D Meyer, [address] [place] [address] Obstructive sleep apnea (Primary Dx); SOB (shortness [...] file Legal Sex Female 12:24 AM CHIEF NURSING OFFICER Gender Identity Not on file Sexual Orientation Not on file documented as of this encounter Last Filed Vital Signs Vital Sign Reading Time Taken Comments Blood Pressure 139/82 03/17/2018 2:35 PM CHIEF NURSING OFFICER Pulse 89 03/17/2018 12:00 PM CHIEF NURSING OFFICER Temperature 37.1 ??C (98.8 ??F) 03/17/2018 6:15 AM CS T Respiratory Rate 20 03/17/2018 2:30 PM CHIEF NURSING OFFICER Oxygen Saturation 98% 03/17/2018 2:30 PM CHIEF NURSING OFFICER Inhaled Oxygen Concentration - - Weight 127 kg (279 lb 15.8 oz) 03/17/2018 3:09 A M CHIEF NURSING OFFICER Height 152.4 cm (5') 03/17/2018 3:09 AM CHIEF NURSING OFFICER Body Mass Index 54.68 03/17/2018 3:09 AM CHIEF NURSING OFFICER documented in this encounter Discharge Instructions * Attachments The following attachments cannot be sent through Care Everywhere. * Dyspnea (AfterCare(R) Instructions(ER/ED)) (Tunisian) documented in this encounter Medications at Time [...] had an ED visit on 02/24/2018 at [facility] for chest pain, SOB,and hyperglycemia and was discharged on the same day. Patient History Patient Active Problem List Diagnosis Date Noted ??? Dyslipidemia ??? History of breast cancer ??? Other chronic pain ??? CVA (cerebral vascular accident) ([facility]) 01/24/2018 ??? Breast CA ([facility]) 01/24/2018 ??? Anxiety and depression 11/12/2017 ??? Uncontrolled type 2 diabetes mellitus with hyperglycemia, with long-term current use of insulin([facility]) 11/06/2017 ??? Allergy to drug 11/06/2017 ??? Dysuria 10/26/2017 ??? Acute left-sided low back pain with left-sided sciatica 10/23/2017 ??? Type 2 diabetes mellitus with neurologic complication, without long-term current use of insulin([facility]) 10/23/2017 ??? Essential hypertension 10/23/2017 ??? [...] appears anxious. Nursing note and vitals reviewed. [facility] Vitals: 03/17/18 1330 03/17/18 1345 03/17/18 1400 [...] actions. Maria D Meyer DO 03/17/18 1424 F NURSING OFFICER * Mariely Wolf RN - 03/17/2018 3:40 AM CST Chest Xray complete and pt back in waiting room sitting in locked wheelchair. F NURSING OFFICER * Mariely Wolf RN - 03/17/2018 3:09 [...] CP. EKG has been completed in triage F NURSING OFFICER documented in this encounter Plan of Treatment Not on file documented as of this encounter Procedures Procedure Name Priority Date/Time Associated Diagnosis Comments EGFR STAT 03/17/2018 8:55 AM CHIEF NURSING OFFICER DIFFERENTIAL AUTO STAT 03/17/2018 8:5 5 AM CHIEF NURSING OFFICER CBC WITH AUTO DIFFERENTIAL STAT 03/17/2018 8:55 AM CHIEF NURSING OFFICER TROPONIN I STAT 03/17/2018 8:55 AM CHIEF NURSING OFFICER B-TYPE NATRIURETIC PEPTIDE STAT 03/17/2018 8:55 AM CHIEF NURSING OFFICER COMPREHENSIVE METABOLIC PANEL STAT 03/17/2018 8:55 AM CHIEF NURSING OFFICER XR CHEST 1 VIEW ED 03/17/2018 3:45 AM CHIEF NURSING OFFICER INFLUENZA A/B ANTIGEN STAT 03/17/2018 3:21 AM CHIEF NURSING OFFICER ECG 12-LEAD STAT 03/17/2018 3:04 AM CHIEF NURSING OFFICER documented in this encounter Results * eGFR (03/17/2018 8:55 AM CHIEF NURSING OFFICER) [facility] eGFR 95 mL/min/1.7 3 m2 MARY JANE [...] 2015. Blood specimen (specimen) 03/17/2018 8:55 AM CHIEF NURSING OFFICER 03/17/2018 9:02 AM CHIEF NURSING OFFICER Narrative [facility] - 03/17/2018 9:20 AM CHIEF NURSING OFFICER us Maria D Meyer DO LAB BLOOD ORDERABLES Final Res ult MARY JANE [address] [place] [address] * (ABNORMAL) Differential, auto (03/17/2018 8:55 AM CHIEF NURSING OFFICER) Neutrophil abs 7.6(H) 1.7 - 6.5 K/cumm [facility] Imm gran abs 0.0 0.0 - 0.1 K/cumm [facility] Lymphocyte abs 2.4 0.8 - 3.3 K/cumm [facility] Monocyte abs 0.9(H) 0.2 - 0.8 K/cumm [facility] Eosinophil abs 0.3 0.0 - 0.5 K/cumm [facility] Basophil abs 0.0 0.0 - 0.1 K/cumm [facility] Neutrophil pct 67.4 % [facility] Comment: Interpretive Data Percent cell count reference ranges are not reported, since discordance with absolute values may lead to misinterpretation of CBC data. Current Interpretive Data was last revised on 2017. Imm gran pct 0.4 % [facility] Comment: Interpretive Data Percent cell count reference ranges are not reported, since discordance with absolute values may lead to misinterpretation of CBC data. Current Interpretive Data was last revised on 2017. Lymphocyte pct 21.5 % [facility] Comment: Interpretive Data Percent cell count reference ranges are not reported, since discordance with absolute values may lead to misinterpretation of CBC data. Current Interpretive Data was last revised on 2017. Monocyte pct 7.8 % [facility] Comment: Interpretive Data Percent cell count reference ranges are not reported, since discordance with absolute values may lead to misinterpretation of CBC data. Current Interpretive Data was last revised on 2017. Eosinophil pct 2.5 % [facility] Comment: Interpretive Data Percent cell count reference ranges are not reported, since discordance with absolute values may lead to misinterpretation of CBC data. Current Interpretive Data was last revised on 2017. Basophil pct 0.4 % [facility] Comment: Interpretive Data Percent cell count reference ranges are not reported, since discordance with absolute values may lead to misinterpretation of CBC data. Current Interpretive Data was last revised on 2017. Blood specimen (specimen) 03/17/2018 8:55 AM CHIEF NURSING OFFICER 03/17/2018 9:02 AM CHIEF NURSING OFFICER Narrative [facility] - 03/17/2018 9:16 AM CHIEF NURSING OFFICER us Maria D Meyer DO LAB BLOOD ORDERABLES Final Res ult Performing Organization Address [facility] Co de Phone Number MARY JANE ARNOLD [address] [address] [facility] [employer] [place], [place] [id number] * Troponin I (03/17/2018 8:55 AM CHIEF NURSING OFFICER) Pathologist [facility] Troponin I <0.03 0.00 - 0.14 ng/mL [facility] Comment: Interpretive Data Normal: ? 0.00 - 0.14 ng/mL Indeterminate: ?0.15 - 0.50 ng/mL [place] / Cardiac Muscle Damage: ? >0.50 ng/mL Current interpretive data was last reviewed 2015 Blood specimen (specimen) 03/17/2018 8:55 AM CHIEF NURSING OFFICER 03/17/2018 9:02 AM CHIEF NURSING OFFICER Narrative [facility] - 03/17/2018 9:24 AM CHIEF NURSING OFFICER Maria D Meyer DO LAB BLOOD ORDERABLES Final Res ult Performing Organization Address [facility] Co de Phone Number MARY JANE ARNOLD [address] [address] [facility] [place] [address] * B-type natriuretic peptide (03/17/2018 8:55 AM CHIEF NURSING OFFICER) Pathologist [facility] B-Type Natriuretic Peptide (BNP) 18 0 - 100 pg/mL [facility] Blood specimen (specimen) 03/17/2018 8:55 AM CHIEF NURSING OFFICER 03/17/2018 9:02 AM CHIEF NURSING OFFICER Narrative [facility] - 03/17/2018 9:28 AM CHIEF NURSING OFFICER Maria D Meyer DO LAB BLOOD ORDERABLES Final Res ult Performing Organization Address [facility] Co de Phone Number MARY JANE ARNOLD [address] [address] [facility] [place] [address] * (ABNORMAL) Comprehensive metabolic panel (03/17/2018 8:55 AM CHIEF NURSING OFFICER) Sodium 137 135 - 145 mmol/L [facility] [...] CH Blood specimen (specimen) 03/17/2018 8:55 AM CHIEF NURSING OFFICER 03/17/2018 9:02 AM CHIEF NURSING OFFICER Narrative [facility] - 03/17/2018 9:20 AM CHIEF NURSING OFFICER us Maria D Meyer DO LAB BLOOD ORDERABLES Final Res ult MARY JANE ARNOLD [address] [address] [place] [address] * (ABNORMAL) CBC with auto differential (03/17/2018 8:55 AM CHIEF NURSING OFFICER) WBC 11.3(H) 3.8 - 9.9 K/cumm [facility] Hgb 12.1 11.9 - 15.5 g/dL [facility] Hct 39.0 35.6 - 45.5 % [facility] Plt 300 150 - 400 K/cumm [facility] MPV 9.8 9.1 - 12.3 fL [facility] RBC 4.38 3.90 - 5.20 M/cumm [facility] MCV 89.0 81.3 - 96.4 fL [facility] MCH 27.6 27.1 - 33.3 pg [facility] MCHC 31.0(L) 32.3 - 35.7 g/dL [facility] RDW CV 14.8 11.1 - 14.9 % [facility] RDW SD 48.0 35.7 - 48.1 fL [facility] NRBC abs 0.00 0.00 - 0.01 K/cumm [facility] Blood specimen (specimen) 03/17/2018 8:55 AM CHIEF NURSING OFFICER 03/17/2018 9:02 AM CHIEF NURSING OFFICER Narrative [facility] - 03/17/2018 9:16 AM CHIEF NURSING OFFICER Maria D Meyer DO LAB BLOOD ORDERABLES Final Res ult MARY JANE [address] [address] Department [place] [address] * XR Chest 1 Vw Portable (03/17/2018 3:45 AM CHIEF NURSING OFFICER) Anatomical Region Laterality Modality Body, Chest N/A Computed Radiogr aphy 03/17/2018 10:2 5 AM CHIEF NURSING OFFICER Impressions 03/17/2018 10:26 AM CHIEF NURSING OFFICER Mild vascular congestion. Electronically signed by: Avelino Alonso M.D. Narrative 03/17/2018 10:26 AM CHIEF NURSING OFFICER RESULT: EXAMINATION: AP PORTABLE CHEST RADIOGRAPH Date: [...] Electronically signed by: Avelino Alonso M.D. Result [facility] Erick Davis MD IMG XR PROCEDURES Final Re sult * Influenza A/B Antigen Nasopharyngeal (03/17/2018 3:21 AM CHIEF NURSING OFFICER) Pathologist [facility] Influenza A Ag Negative [facility] Influenza B Ag Negative [facility] Comment: The BD Veritor System [...] reviewed 2018 Nasopharyngeal 03/17/2018 3: 21 AM CHIEF NURSING OFFICER 03/17/2018 3:41 AM CHIEF NURSING OFFICER Narrative [facility] - 03/17/2018 3:55 AM CHIEF NURSING OFFICER Erick Davis MD LAB MICROBIOLOGY - GENERAL ORDERABLES Final Result [facility] [address] [address] [place] [address] * ECG 12-LEAD (03/17/2018 3:04 AM CHIEF NURSING OFFICER) Patient age 62 years [facility] Interpretation Text SINUS RHYTHMNORMAL ECGPREVIOUS TRACIN02/24/2018 03.20No significant changes noted [facility] Comment:Physician Interprete r Dr. Opal Koo M.D. Ventricular Rate EKG/Min 78 /min [facility] P Wave Duration 111 ms [facility] QRS-Interval (MSEC) 81 ms [facility] NC-Interval (MSEC) 131 ms [facility] QT Interval 354 ms [facility] QTc 385 ms [facility] QTC Interval ms [facility] P [place] 9 deg [facility] QRS [place] 6 deg [facility] T [place] 32 deg [facility] 03/17/2018 3:04 AM CHIEF NURSING OFFICER Narrative Procedure Note Maria D Meyer, DO [...] had an ED visit on 02/24/2018 at [facility] for chest pain, SOB, and hyperglycemia and was discharged onthe same day. Patient History Patient Active Problem List Diagnosis Date Noted ? ? Dyslipidemia ? ? History of breast cancer ? ? Other chronic pain ? ? CVA (cerebral vascular accident) ([facility]) 01/24/2018 ? ? Breast CA (CMS/HCC) 01/24/2018 ? ? Anxiety and depression 11/12/2017 ? ? Uncontrolled type 2 diabetes mellitus with hyperglycemia, with long-termcurrent use of insulin ([facility]) 11/06/2017 ? ? Allergy to drug 11/06/2017 [...] Spinal stenosis of lumbar region without neurogenic lfmvublqyiaw60/02/2018 ? ? Back pain of lumbar region [...] appears anxious. Nursing note and vitals reviewed. [facility] Vitals: 03/17/18 1330 03/17/18 1345 03/17/18 1400 [...] and actions. Maria D Meyer DO 03/17/18 3814 us Erick Davis MD ECG ORDERABLES Final Resu lt [facility] documented in this encounter Visit [...] For 1 dose Given 03/17/2018 2:38 PM CHIEF NURSING OFFICER 1,000 mg diazePAM (VALIUM) tablet 5 mg 5 mg, oral, Once, On 03/17/18 at 0903, For 1 dose Given 03/17/2018 9:13 AM CHIEF NURSING OFFICER 5 mg HYDROmorphone (DILAUDID) injection 0.5 mg 0.5 mg, intravenous, Administer over 2 Minutes, Once, On 03/17/18 at 0903, For 1 dose Given 03/17/2018 9:14 AM CHIEF NURSING OFFICER 0.5 mg ondansetron (ZOFRAN) injection 4 mg 4 mg, intravenous, Administer over 2 Minutes, Once, On 03/17/18 at 0903, For 1 dose Given 03/17/2018 9:14 AM CHIEF NURSING OFFICER 4 mg documented in this encounter Active and Recently Administered Medications Times are shown in CHIEF NURSING OFFICER. Scheduled Medication Order 03/15/2018 03/16/2018 03/17/2018 acetaminophen [...] 018 documented in this encounter Care Teams Kick Press Setter Relationship Specialty Start Date End Date Justen Gale MD 2 [facility] [address] [place] [address] PCP - General 10/09/17 Liu Jerez MD Consulting Physician Gastroenterology 07/28/17 [place] [address] [address] [facility] [address] [place] [address] Consulting Physician Pulmonary Disease 08/03/17 Khris Arthur MD [address] [facility] [address] [place] [address] Medical Oncologist/Coating Operator Medical Oncology 10/23/17 [place] [address] [address] Surgeon Orthopedic Surgery 10/23/17 [place] [address] [facility] [address] [place] [address] Consulting Physician Pain Management 10/23/17 [place] [address] [facility] [address] [place] [address] Referring Physician General Surgery 01/26/18 [place] [address] [facility] [address] [place] [address] Consulting Physician Neurology 01/26/18 documented as of this encounter
--- OUTSIDE RECORDS SUMMARY | 2024-04-26 09:27 | XMS_ITS | Encounter Summary ---
Author Organization [facility] Healthcare Address [address] [place] [address] Care Team Providers Care Sifter And Miller Name Role Phone Liu Jerez MD Unavailable [phone] Albert Corbin MD Unavailable Justen Gale MD Primary Care Provider Khris Arthur MD Unavailable [phone] Ko Melendez MD Unavailable John Paul Moeyr MD Unavailable Encounter Details Date Type Department Care Team (Latest Contact Info) Description 01/25/2018 10:49 AM CDT - 01/25/2018 5:06 PM CDT Hospital Encounter [facility] Imaging and Radiology [address] [place] [address] [place] [address] [facility] [address] [place] [address] Discharge Disposition: Discharge to home [...] on file Legal Sex Female 12:24 AM RESIDENCE SUPERVISOR Gender Identity Not on file Sexual [...] 01/25/2018 documented in this encounter Care Teams Sifter And Miller Relationship Specialty Start Date End Date Justen Gale MD [address] [address] PCP - General 10/09/17 Liu Jerez MD Consulting Physician Gastroenterology 07/28/[address] [place] [address] [facility] [address] [place] [address] Consulting Physician Pulmonary Disease 08/03/17 Khris Arthur MD [address] [facility] [address] [place] [address] Medical Oncologist/Air Route Controller Medical Oncology 7/2/18 [place] [address] [address] Surgeon Orthopedic Surgery 10/23/17 [place] [address] [address] Consulting Physician Pain Management 10/23/17 documented as of this encounter
--- OUTSIDE RECORDS SUMMARY | 2024-04-26 09:27 | XMS_ITS | Encounter Summary ---
Author Organization [facility] Healthcare Address [address] [place] [address] Care Team Providers Care Vegetable Inspector Name Role Phone Liu Jerez MD Unavailable [phone] Albert Corbin MD Unavailable [phone] Justen Gale MD Primary Care Provider [phone] Khris Arthur MD Unavailable [phone] Ko Melendez MD Unavailable John Paul Moyer MD Unavailable Encounter Details Date Type Department Care Team (Latest Contact Info) Description 01/25/2018 7:37 AM CDT - 01/25/2018 10:48 AM CDT Hospital Encounter [address] [address] [place] [address] [address] [place] [address] Discharge Disposition: Discharge to home or self care Social History Tobacco Use Types Packs/Day Years Used Date Smoking Tobacco: Former Smokeless Tobacco: Never Comments:remote tobacco use Alcohol Use Standard Drinks/Week Comments No 0 (1 standard drink = 0.6 oz pur e alcohol) Comments No Sex and Gender Information Value Date Recorded Sex Assigned at Not on file Legal Sex Female 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 Gender Identity Not on file Sexual [...] on filedocumented in this encounter Care Teams Vegetable Inspector Relationship Specialty Start Date End Date Justen Gale MD 2 [facility] [address] [place] [address] PCP - General 10/09/17 Liu Jerez MD Consulting Physician Gastroenterology 07/28/17 [place] [address] [address] [facility] [address] [place] [address] Consulting Physician Pulmonary Disease 08/03/17 Khris Arthur MD [address] [facility] [address] [place] [address] Medical Oncologist/Rn Manager Medical Oncology 10/23/17 [place] [address] [facility] [address] [place] [address] Surgeon Orthopedic Surgery 10/23/17 [place] [address] [facility] [address] [place] [address] Consulting Physician Pain Management 10/23/17 documented as of this encounter
--- OUTSIDE RECORDS SUMMARY | 2024-04-26 09:27 | XMS_ITS | Encounter Summary ---
Author Organization [facility] Healthcare Address [address] [place] [address] Care Team Providers Care Fruit Grader Name Role Phone Liu Jerez MD Unavailable Albert Corbin MD Unavailable Justen Gale MD Primary Care Provider Khris Arthur MD Unavailable [phone] Ko Melendez MD Unavailable John Paul Moyer MD Unavailable Annel Rod MD Unavailable Anali MARSHALL MD, Carlos M. Unavailable Encounter Details Date Type Department Care Team (Latest Contact Info) Description 03/17/2018 3:22 AM DIRECTOR OF SOCIAL SERVICES - 03/17/2018 7:15 AM DIRECTOR OF SOCIAL SERVICES Hospital Encounter [facility] Diagnostic Imaging [address] [place] [address] Discharge Disposition: Discharge to home [...] Legal Sex Female 12:24 AM DIRECTOR OF SOCIAL SERVICES Gender Identity Not on file Sexual [...] CHEST 1 VIEW ED 03/17/2018 3:45 AM DIRECTOR OF SOCIAL SERVICES documented in this encounter Results * XR Chest 1 Vw Portable (03/17/2018 3:45 AM DIRECTOR OF SOCIAL SERVICES) Anatomical Region Laterality Modality Body, Chest N/A Computed Radiogr aphy 03/17/2018 10:2 5 AM DIRECTOR OF SOCIAL SERVICES Impressions 03/17/2018 10:26 AM DIRECTOR OF SOCIAL SERVICES Mild vascular congestion. Electronically signed by: Avelino Alonso M.D. Narrative 03/17/2018 10:26 AM DIRECTOR OF SOCIAL SERVICES RESULT: EXAMINATION: AP PORTABLE CHEST RADIOGRAPH Date: [...] on filedocumented in this encounter Care Teams Fruit Grader Relationship Specialty Start Date End Date Justen Gale MD 2 [facility] [address] [place] [address] PCP - General 10/09/17 Liu Jerez MD Consulting Physician Gastroenterology 07/28/[address] [place] [address] [facility] [address] [place] [address] Consulting Physician Pulmonary Disease 08/03/17 Khris Arthur MD [address] [facility] [address] [place] [address] Medical Oncologist/Storm Sash Maker Medical Oncology 10/23/[address] [place] [address] [facility] [address] [place] [address] Surgeon Orthopedic Surgery 10/23/17 [place] [address] [facility] [address] [place] [address] Consulting Physician Pain Management 10/23/17 [place] [address] [facility] [address] [place] [address] Referring Physician General Surgery 01/26/18 [place] [address] [facility] [address] [place] [address] Consulting Physician Neurology 01/26/18 documented as of this encounter
--- OUTSIDE RECORDS SUMMARY | 2024-04-26 09:27 | XMS_ITS | Encounter Summary ---
Author Organization [facility] Address [address] [place] [address] Phone Care Team Providers Care Visual Training Aide Name Role Phone Liu Jerez MD Unavailable [phone] Albert Corbin MD Unavailable [phone] Justen Gale MD Primary Care Provider + [phone] Khris Arthur MD Unavailable + [phone] Ko Melendez MD Unavailable [phone] John Paul Moyer MD Unavailable Reason for Visit * Oncology (Routine) - Closed Specialty Diagnoses / Procedures Referred By Contkristina t Referred To Contact Lab Diagnoses #C,,, Procedures ARM DRAW Khris Arthur MD Phone: tel: fax: [facility] On[facility] [address] 7[address] [place] [address] Phone: tel: Referral ID Status Reason Start Date Expiration Date V isits Requested Visits Authorized [id number] Closed Specialty Services Required 12/14/2017 06/12/2018 12 12 Encounter Details Date Type Department Care Team (Late st Contact Info) Description 01/16/2018 2:30 PM CDT Lab [facility] Oncology [address] 7[address] [place] [address] [place] [address] Khris Arthur MD [address] [place] [address] Malignant neoplasm of overlapping sites of left [...] file Legal Sex Female 12:24 AM [employer] Gender Identity Not on file Sexual [...] Sodium 139 135 - 145 mmol/L [facility] Potassium, pl 4.2 3.3 - 4.9 mmol/L [facility] Chloride 101 97 - 110 mmol/L [facility] CO2 28 22 - 32 mmol/L [facility] Anion gap 10 2 - 15 mmol/L [facility] BUN 14 8 - 25 mg/dL [facility] Creatinine 0.72 0.60 - 1.10 mg/dL [facility] Glucose 116 70 - 199 mg/dL [facility] Comment: Interpretive Data Fasting glucose >/= [...] 2017. Calcium 10.6(H) 8.5 - 10.3 mg/dL [facility] Bilirubin, total 0.6 0.1 - 1.2 mg/dL [facility] Protein, pl 8.5 6.5 - 8.5 g/dL [facility] Albumin 4.0 3.5 - 5.0 g/dL [facility] Alk phos 92 40 - 130 Units/L [facility] ALT 19 7 - 45 Units/L [facility] AST 22 10 - 45 Units/L [facility] Blood specimen (specimen) 01/16/2018 3:10 PM CDT 01/16/2018 3:34 PM CDT Narrative [facility] - 01/16/2018 4:20 PM CDT us Khris Arthur MD LAB BLOOD ORDERABLES Final Result [facility] Department [place] [address] * (ABNORMAL) Differential, auto (01/16/2018 3:02 PM CDT) Neutrophil abs 8.8(H) 1.8 - 6.6 K/cumm [facility] Comment:Testing performed by : [facility], [address] [place] [phone] Lymphocyte abs 2.9 1.2 - 3.3 K/cumm [facility] Comment:Testing performed by : [facility], [address] [place] [phone] Monocyte abs 1.0 0.2 - 1.2 K/cumm [facility] Comment:Testing performed by : [facility], [address] [place] [phone] Eosinophil abs 0.3 0.0 - 0.5 K/cumm [facility] Comment:Testing performed by : [facility], [address] [place] [phone] Basophil abs 0.1 0.0 - 0.2 K/cumm [facility] Comment:Testing performed by : [facility], [address] [place] [phone] Neutrophil pct 67.2 % [facility] Comment: Interpretive Data Percent cell count reference ranges are not reported, since discordance with absolute values may lead to misinterpretation of CBC data. Current Interpretive Data was last revised on 2017. Testing performed by: [facility], [address] [place] [phone] Lymphocyte pct 22.3 % [facility] Comment: Interpretive Data Percent cell count reference ranges are not reported, since discordance with absolute values may lead to misinterpretation of CBC data. Current Interpretive Data was last revised on 2017. Testing performed by: [facility], [address] [place] [phone] Monocyte pct 7.4 % [facility] Comment:Testing performed by : [facility], [address] [place] [phone] Eosinophil pct 2.5 % [facility] Comment:Testing performed by : [facility], [address] [place] [phone] Basophil pct 0.6 % [facility] Comment:Testing performed by : [facility], [address] [place] [phone] Blood specimen (specimen) 01/16/2018 3:02 PM CDT 01/16/2018 3:06 PM CDT Narrative [facility] - 01/16/2018 3:09 PM CDT Khris Arthur MD LAB BLOOD ORDERABLES Final Result [facility] Department [place] [address] * (ABNORMAL) CBC with auto differential (01/16/2018 3:02 PM CDT) WBC 13.0(H) 3.8 - 9.8 K/cumm [facility] Comment:Testing performed by : [facility], [address] [place] [phone] Hgb 12.8 12.1 - 15.1 g/dL [facility] Comment:Testing performed by : [facility], [address] [place] [phone] Hct 39.3 36.1 - 44.3 % [facility] Comment:Testing performed by : [address] [phone] Plt 368 140 - 440 K/cumm [facility] Comment:Testing performed by : [address] [phone] MPV 7.4 6.8 - 10.4 fL [facility] Comment:Testing performed by : [facility], [address] [place] [phone] RBC 4.68 3.90 - 5.00 M/cumm [facility] Comment:Testing performed by : [address] [phone] MCV 83.9 80.0 - 97.6 fL [facility] Comment:Testing performed by : [address] [phone] MCH 27.3 26.7 - 33.7 pg [facility] Comment:Testing performed by : [address] [phone] MCHC 32.5(L) 32.7 - 35.5 g/dL [facility] Comment:Testing performed by : [facility], [address] [facility] [phone] RDW CV 15.0(H) 11.8 - 14.6 % [facility] Comment:Testing performed by : [facility], [address] [facility] [phone] NRBC abs 0.00 0.00 - 0.01 K/cumm [facility] Comment:Testing performed by : [facility], [address] [facility] [phone] Blood specimen (specimen) 01/16/2018 3:02 PM CDT 01/16/2018 3:06 PM CDT Narrative [facility] - 01/16/2018 3:09 PM CDT Khris Arthur MD LAB BLOOD ORDERABLES Final Result [facility] [place] [address] documented in this encounter Visit Diagnoses Diagnosis Malignant neoplasm of overlapping sites of left female breast, unspecified estrogen receptor status (HCC) documented in this encounter Care Teams Visual Training Aide Relationship Specialty Start Date End Date Justen Gale MD [address] [id number] PCP - General 10/09/17 Liu Jerez MD Consulting Physician Gastroenterology 07/28/17 [place] [address] [facility] [address] [place] [address] Consulting Physician Pulmonary Disease 08/03/17 Khris Arthur MD [address] [facility] [address] [place] [address] Medical Oncologist/Relay Shop Tester Medical Oncology 10/23/17 [place] [address] [address] Surgeon Orthopedic Surgery 10/23/17 [place] [address] [address] [address] Consulting Physician Pain Management 10/23/17 documented as of this encounter
--- OUTSIDE RECORDS SUMMARY | 2024-04-26 09:27 | XMS_ITS | Encounter Summary ---
Author Organization [facility] Healthcare Address [address] [place] [address] Care Team Providers Care Bench Assembly Inspector Name Role Phone Liu Jerez MD Unavailable Albert Corbin MD Unavailable Justen Gale MD Primary Care Provider Khris Arthur MD Unavailable [phone] Ko Melendez MD Unavailable [phone] John Paul Moyer MD Unavailable Annel Rod MD Unavailable Anali MARSHALL MD, Carlos M. Unavailable [phone] Reason for Visit * Reason Comments Headache Extremity Weakness Encounter Details Date Type Department Care Team (Latest Contact Info) Description 01/23/2018 4:08 PM CDT - 01/26/2018 6:55 PM CDT Hospital Encounter [place] [id number] [place] [address] Erick Davis MD [address] [place] [address] [address] [place] [id number] [place] [address] [facility] [address] [place] [address] [place] [address] [facility] [address] [place] [address] [place] [address] [facility] [address] [place] [address] Numbness (Primary Dx); Radiculopathy, unspecified spinal region [...] on file 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 Rod if too high or too [...] neural foramina are patent. Impression: 1. MILD RPEBM-AXQYG-DVLR ECCENTRIC DISC BULGING AT C6-C7 CAUSING MINIMAL [...] Prior examinations are not available for comparison. Linux Consultant radiograph and AP and lateral projections demonstrates [...] with the calcifications. Normal enhancement around the [place]. No abnormal intracranial enhancement is seen. [...] mg daily, with no added salt) Call [phone] if you have questions about your diet [...] Please have patient call office for scheduling [phone]. No further refills will be given. Thanks [...] ONC CAM7 ÁLVARE[place] [address] [address] Schedule an appointment as soon as possible for a visit in 2 week(s) primary care provider Justen Gale MD 2 [facility] [address] [facility] [address] Annel Rod MD 2 [facility] [address] [facility] [address] follow up with endocrinology for further evaluation of right thyroid lobe enlargement/nod[place] [address] [facility] [address] [facility] [address] follow up with neurology within a week for further evaluation of headaches Follow-up with providerfollow up with ophthalmology within a week for dilated eye exam follow up with ophthalmology within a week for dilated eye exam Follow up with Dr. Smith pain management as soon as possible Discharge Time:Greater than 30 minutes Elo Aceves MD [facility] [phone] 01/26/2018 6:03 PM documented in this encounter Discharge Instructions * Discharge Instr - Diet* Jennifer Walker RD - 01/24/2018 12:05 PM CDT Consistent Carbohydrate diet (60-75 grams of carbohydrates per meal, with 3 meals per day) Sodium Restricted diet (2,000 mg daily, with no added salt) Call [phone] if you have questions about your diet * Attachments The following attachments cannot be sent through Care Everywhere. * Basic Carbohydrate Counting (Discharge Care) (Turkmen) * Low-Sodium Diet (Discharge Care) (Turkmen) documented in this encounter Medications at Time [...] this encounter Progress Notes * Archana Watkins, [facility] - 01/26/2018 12:20 PM CDT Physical Therapy [...] PRN Britney Zavala NP 0.5 mg at [id number] ??? atorvastatin (LIPITOR) tablet 20 mg 20 mg oral Nightly Bebeto Briones MD 20 mg at 01/25/182049 ??? yuirowpfip-npefivqxknrjb-hkammqoy (FIORICET, ESGIC) 50-325-40 mg per tablet 1 [...] 5 mg 5 mg oral After dinner Britnye Zavala NP 5 mg at 01/25/18 1840 ??? rivaroxaban (XARELTO) tablet 20 mg 20 mg oral Daily with dinner Britney Zavala, FURNITURE PACKER 20 mg at 01/25/181839 ??? rOPINIRole (REQUIP) tablet 5 mg 5 mg oral Nightly Britney Zavala, FURNITURE PACKER 5 mg at 01/25/182041 Objective Vitals: 24hr [...] place, and time. She has a normal Mqwuui-Hrji-Tavxsu Test. Reflex Scores: Tricep reflexes are 1+ [...] Right achilles: 1+ Left achilles: 1+ Right cognos lead: 2+ Left cognos lead: 2+ Right plantar: normal Left plantar: normal [...] 2018 MRI Cervical Spine without contrast: Mild wvwli-otlsn-ojtd eccentric disc bulgingat C6-C7 causing minimal canal [...] / SEX: 62 y.o. 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 / female ROOM: [place] [address] : 1955 DATE: 01/25/18 TIME IN: 1450 [...] De, DO - 01/25/2018 2:47 PM CDT [facility] Hospitalist Service Progress Note Patient Name: Mohsen Marques Patient : 1955 Age/Sex: 62 y.o. female Room/Bed: [facility]/[id number] Admission Date/Time: 01/23/2018 4:08 PM Date: 01/25/2018 Time: 2:47 PM Chief Complaint: Right Sided Numbness Hospital Course: Mohsen Marques is a 62 y.o. female admitted to [facility] on 01/23/2018 with a 2 day history [...] was scheduled for 01/25/2018 at 5pm at [facility]. Subjective HPI: The patient reports that she [...] ordered. Open MRI to take place at [facility] ~5pm. Currently on Xarelto 20 and Lipitor [...] Cem De DO Internal Medicine - Hospitalist [facility] - Adult Hospitalist Service 01/25/2018 2:47 PM [...] this the discharge summary. * Chioma Giles FURNITURE PACKER - 01/25/2018 1:38 PM CDT Neurology Daily [...] 5 mg oral After dinner Britney Zavala, FURNITURE PACKER 5 mg at 01/24/18 172 ??? rivaroxaban (XARELTO) tablet 20 mg 20 mg oral Daily with dinner Britney Zavala, FURNITURE PACKER 20 mg at 01/24/18 172 ??? rOPINIRole (REQUIP) tablet 5 mg 5 mg oral Nightly Britney Zavala, FURNITURE PACKER 5 mg at 01/24/182058 Objective Vitals: 24hr [...] place, and time. She has an abnormal Dpmmts-Itvv-Folapc Test (Mild ataxia right upper extremity). Reflex [...] Right achilles: 1+ Left achilles: 1+ Right cognos lead: 1+ Left cognos lead: 1+ Right plantar: normal Left plantar: normal [...] Amor, DO - 01/24/2018 7:46 PM CDT [facility] Hospitalist Service Progress Note Patient Name: Mohsen Marques Patient : 1955 Age/Sex: 62 y.o. female Room/Bed: QD1894/[id number] Admission Date/Time: 01/23/2018 4:08 PM Date: 01/24/2018 Time: 7:46 PM Chief Complaint: Right Sided Numbness Hospital Course: Mohsen Marques is a 62 y.o. female admitted to [facility] on 01/23/2018 with a 2 day history [...] Cem De DO Internal Medicine - Hospitalist [facility] - Adult Hospitalist Service 01/24/2018 7:46 PM * Valarie Carrillo, OT - 01/24/2018 4:09 PM CDT Occupational Therapy NOTE / SESSION TYPE: EVAUATION PATIENT'S NAME: Mohsen Marques AGE / SEX: 62 y.o. / female [address]: [address] : 1955 DATE: 01/24/18 TIME IN: [...] after me and remember it. Noe Poole [address] [place] [address]. Number of trialto [id number] 3 1 3 0 3. About what [...] asked you to remember. Noe Poole [address] [facility]. [] Noe [] Virgilio []42 [][facility] [][place] 5 (b) 2 0 A weighted error score of 9 or greater indicates a need for further assessment. Total Weighted Error Score = 2 (a) Scoring 0 = No errors, 1 = 1 error, 2 = 2 or more errors, (b) An answer of either [facility] or [facility] is acceptable. UE ROM / STRENGTH / COORDINATION: (A)ROM - RIGHT: WNL THROUGHOUT STRENGTH - RIGHT: 3+/5 EXCEPT WRIST 4-/5 (A)ROM - LEFT: WNL THROUGHOUT STRENGTH - LEFT: 4+/5 EXCEPT SHOULDER 4_/5 HAND DOMINANCE: Right AERODYNAMIC CONSULTANT STRENGTH (RIGHT): GOOD AERODYNAMIC CONSULTANT STRENGTH (LEFT): GOOD RIGHT COORDINATION: MIN SPEED AND SERIAL OPPOSITION AND KEMFEP-[id number]-ZWFGPU LEFT COORDINATION: WNL SERIAL OPPOSITION AND RHWIOK-HJAE-KTWIKH BALANCE: STATIC SITTING: GOOD SUPPORTED AT EOB [...] Date: 01/24/18 Goal Start Date End Date [facility] 1 01/24/18 -- Goal Details: PATIENT WILLCOMPETE UE STRENGTHENING EX. INDEP. WITH HANDOUT X1 Goal Start Date End Date [facility] 2 01/24/18 -- Goal Details: PATIENT WILL COMPLETE OCULAR MOTOR EXERCISES INDEP. 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 Ambindep with cane or wh [...] assist: contact guard/SBA Deviations: decreased step length mrailyn, slow gait due to pain Balance/Special Tests: [...] - 01/24/18 1431 Referral Data Referral Source Technical Services Manager Referral Reason Discharge Planning Patient Information Primary [...] requested information topatient. Her daughter is her grain ii farmworker, through the [facility] . Her daughter assist with dressing, grooming, cooking, cleaning and transportation. She has a wheeled walker, cane, diabeticsupplies, and CPAP at home. Her goal is to return home at time of discharge. Discharge Planning Type of Residence: Private residence Living Arrangements: Children Support Systems: Family members, Children Assistance Needed: None at this time. Daughter is grain ii farmworker. Home Care Services: No Patient expects to [...] Assessment/Recommendation Speech Therapy Prognosis Services: No skilled MASTER CERTIFIED RV TECHNICIAN services at this time Prognosis: Good Prognosis Considerations: Previous level of function Recommendations MASTER CERTIFIED RV TECHNICIAN Recommendation (Add'l Services): Home with family MASTER CERTIFIED RV TECHNICIAN Frequency of Services: One-time visit, If this is the last documentation prior to discharge, please consider it discharge summary and patient discharged from this service Speech Evaluation Complete: Yes Goals Multi-Disciplinary Problems (from Speech Therapy) Active Problems Not on file Yeni Jamil CCC-MASTER CERTIFIED RV TECHNICIAN * Jennifer Walker RD - 01/24/2018 12:05 [...] mg daily, with no added salt) Call [phone] if you have questions about your diet Nutrition Follow-Up : 01/26/[address],LD documented in this encounter H&P Notes * Britney Zavala, FURNITURE PACKER - 01/23/2018 11:06 PM CDT History and Physical DATE OF SERVICE: 01/24/2018 4:31 AM Primary Care Physician: Justen Gale MD [phone] SUBJECTIVE: Patient is a 62 y.o. female [...] /Plan Principal Problem: CVA (cerebral vascular accident) ([facility]) Active Problems: Essential hypertension Restless leg syndrome [...] with meals 5. Chronic Back pain- Continue Duffield 5-325 V8ocpbw PRN 6. Breast Cancer- Aromasin 25 mg Qhs 7. DVT prophylaxis- anticoagulated with Xarelto 20 mg QD Full Code Estimated length of Stay: 24 hour observation Britney Zavala [facility] Hospitalists [phone] 01/24/2018 4:31 AM Cosigned by Cem De [...] CA (CMS/HCC); Cancer (CMS/HCC); CHF (congestiveheart failure) ([facility]); Depression; Diabetes ([facility]); Disorder of thyroid; DVT (deep venous thrombosis) ([facility]); OTHER MEDICAL; OTHER MEDICAL; Hypertension; Osteoarthritis; PE (pulmonary thrombo embolism) ([facility]); and Sleep apnea. PAST SURGICAL HISTORY She [...] neural foramina are patent. Impression: 1. MILD BNMPV-GFYGQ-NGOS ECCENTRIC DISC BULGING AT C6-C7 CAUSING MINIMAL [...] Prior examinations are not available for comparison. Linux Consultant radiograph and AP and lateral projections demonstrates [...] with the calcifications. Normal enhancement around the [place]. No abnormal intracranial enhancement is seen. [...] - 01/24/2018 5:01 PM CDT [facility] Neurology Mohsen Marques CONSULTATION 01/24/2018 OV: [...] place, and time. She has a normal Nriqte-Xrng-Tgxuat Test. Reflex Scores: Tricep reflexes are 1+ [...] Right achilles: 1+ Left achilles: 1+ Right cognos lead: 1+ Left cognos lead: 1+ Right plantar: normal Left plantar: normal [...] Nursing Notes * Prisca Barrett RN - 01/26/2018 10:23 AM CDT [...] She was at a pain management center [facility] for a consult about her lower back when she began experiencing these symptoms around 1530. He then recommended that she go to the ED. She states she took a Duffield at 230 this morning for her back pain. No other complaints addressed at this time. PCP: Justen Gale Patient History Patient Active Problem List Diagnosis Date Noted ??? Anxiety and depression 11/12/2017 ??? Uncontrolled type 2 diabetes mellitus with hyperglycemia, with long-term current use of insulin([facility]) 11/06/2017 ??? Allergy to drug 11/06/2017 ??? Dysuria 10/26/2017 ??? Acute left-sided low back pain with left-sided sciatica 10/23/2017 ??? Type 2 diabetes mellitus with neurologic complication, without long-term current use of insulin([facility]) 10/23/2017 ??? Essential hypertension 10/23/2017 ??? Long-term current use of opiate analgesic 10/23/2017 ??? Lumbosacral spondylosis without myelopathy 10/23/2017 ??? Radiculopathy, lumbosacral region 10/23/2017 ??? Spinal stenosis of lumbar region without neurogenic claudication 10/23/2017 ??? 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 ??? Type 2 diabetes mellitus with hyperglycemia, without long-term current use of insulin ([facility]) ??? Constipation ??? Malignant neoplasm of upper-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 ([facility]) 10/17/2017 ??? Cancer of overlapping sites of left female breast ([facility]) 10/13/2017 ??? Chronic anticoagulation ??? Restless leg syndrome ??? Chest pressure 08/01/2017 ??? Positive blood culture 08/01/2017 ??? Hyponatremia 08/01/2017 ??? Diet-controlled diabetes mellitus ([facility]) 08/01/2017 ??? ULL (obstructive sleep apnea) 08/01/2017 ??? History of [...] Nl gait. Nursing note and vitals reviewed. [facility] ED Course as of Jan 23 1745 [...] Comment: Evaluation is not consistent with a COIL MACHINE SUPERVISOR problem. By: Ester Greenwood Time: 01/24 1736 [...] compensation of right visual field deficit * Access Nurse Pre-admission Screen - Fabiola Tompkins - 01/26/2018 [...] Shift: stroke pathway, neuro checks Summary: * Access Nurse Pre-admission Screen - Aileen Craig RN - [...] Also working on management of pain. * Access Nurse Pre-admission Screen - Aileen Craig RN - [...] * POCT glucose (01/26/2018 4:34 PM CDT) [facility] Glucose, POC 122 70 - 199 mg/dL MARY JANE Blood specimen (specimen) 01/26/2018 4:34 PM CDT 01/26/2018 4:34 PM CDT Narrative MARY JANE ARNOLD - 01/26/2018 4:36 PM CDT Elo Aceves MD LAB POCT ORDERABLES - DEVICE Final Result Performing Organization Address [facility]/ZIP Co de Phone Number MARY JANE ARNOLD [address] [address] [facility] [place], [place] [id number] * POCT glucose (01/26/2018 11:40 AM CDT) Glucose, POC 114 70 - 199 mg/dL CERNER CH Blood specimen (specimen) 01/26/2018 11:40 AM CDT 01/26/2018 11:40 AM CDT Narrative CERNER CH - 01/26/2018 11:47 AM CDT Elo Aceves MD LAB POCT ORDERABLES - DEVICE Final Result Performing Organization Address [facility] Co de Phone Number MARY JANE ARNOLD [address] [address] [facility] [place] [address] * POCT glucose (01/26/2018 10:12 AM CDT) Glucose, POC 103 70 - 199 mg/dL CERNER CH Blood specimen (specimen) 01/26/2018 10:12 AM CDT 01/26/2018 10:12 AM CDT Narrative CERNER CH - 01/26/2018 10:16 AM CDT Cem De DO LAB POCT ORDERABLES - NILESH CE Final Result Performing Organization Address [facility]/ZIP Co de Phone Number MARY JANE ARNOLD [address] [address] [facility] [place] [address] * POCT glucose (01/26/2018 6:12 AM CDT) Glucose, POC 178 70 - 199 mg/dL CERNER CH Blood specimen (specimen) 01/26/2018 6:12 AM CDT 01/26/2018 6:12 AM CDT Narrative CERNER CH - 01/26/2018 6:14 AM CDT [facility] ORDERABLES - NILESH CE Final Result Performing Organization Address [facility] Co de Phone Number MARY JANE ARNOLD [address] [address] [facility] [place] [address] * POCT glucose (01/26/2018 3:45 AM CDT) Glucose, POC 132 70 - 199 mg/dL CERNER CH Blood specimen (specimen) 01/26/2018 3:45 AM CDT 01/26/2018 3:45 AM CDT Narrative CERNER CH - 01/26/2018 3:46 AM CDT [facility] POCT ORDERABLES - NILESH CE Final Result Performing Organization Address [facility] Co de Phone Number MARY JANE ARNOLD [address] [place] [address] * POCT glucose (01/25/2018 8:44 PM CDT) Glucose, POC 117 70 - 199 mg/dL CERNER CH Blood specimen (specimen) 01/25/2018 8:44 PM CDT 01/25/2018 8:44 PM CDT Narrative CERNER CH - 01/25/2018 8:46 PM CDT [facility] POCT ORDERABLES - NILESH CE Final Result Performing Organization Address [facility] Co de Phone Number MARY JANE ARNOLD [address] [place] [address] * POCT glucose (01/25/2018 6:53 PM CDT) Glucose, POC 93 70 - 199 mg/dL CERNER CH Blood specimen (specimen) 01/25/2018 6:53 PM CDT 01/25/2018 6:53 PM CDT Narrative CERNER CH - 01/25/2018 6:55 PM CDT Cem De DO LAB POCT ORDERABLES - NILESH CE Final Result Performing Organization Address [facility]/ZIP Co de Phone Number MARY JANE ARNOLD [address] [address] [place] [address] * POCT glucose (01/25/2018 6:30 PM CDT) [facility] Signature Glucose, POC 83 70 - 199 mg/dL MARY JANE Blood specimen (specimen) 01/25/2018 6:30 PM CDT 01/25/2018 6:30 PM CDT Narrative MARY JANE - 01/25/2018 6:35 PM CDT Cem De DO LAB POCT ORDERABLES - NILESH CE Final Result Performing Organization Address [facility] de Phone Number MARY JANE ARNOLD [address] [place] [address] * CTA Head Neck W WO Contrast [...] Prior examinations are not available for comparison. ??Linux Consultant radiograph and AP and lateral projections demonstrates [...] with the calcifications. Normal enhancement around the [place]. ??No abnormal intracranial enhancement is [...] Prior examinations are not available for comparison. Linux Consultant radiograph and AP and lateral projections demonstrates [...] with the calcifications. Normal enhancement around the [place]. No abnormal intracranial enhancement is [...] Impressions 01/26/2018 9:03 AM CDT 1. ??MILD NSXEX-QTGQL-EMNR ECCENTRIC DISC BULGING AT C6-C7 CAUSING MINIMAL [...] neural foramina are patent. IMPRESSION: 1. MILD XZNOD-QHAUQ-TPYA ECCENTRIC DISC BULGING AT C6-C7 CAUSING MINIMAL [...] by: Samson Fulton M.D. Cem De DO [facility] MRI PROCEDURES Final R esult * POCT glucose (01/25/2018 12:03 PM CDT) Glucose, POC 134 70 - 199 mg/dL MARY JANE ARNOLD Blood specimen (specimen) 01/25/2018 12:03 PM CDT 01/25/2018 12:03 PM CDT Narrative MARY JANE - 01/25/2018 12:07 PM CDT Cem De DO LAB POCT ORDERABLES - NILESH CE Final Result Performing Organization Address [facility] de Phone Number MARY JANE ARNOLD [address] [address] [facility] [place] [address] * POCT glucose (01/25/2018 9:24 AM CDT) Glucose, POC 170 70 - 199 mg/dL [facility] Blood specimen (specimen) 01/25/2018 9:24 AM CDT 01/25/2018 9:24 AM CDT Narrative [facility] - 01/25/2018 9:33 AM CDT Cem De DO LAB POCT ORDERABLES - NILESH CE Final Result Performing Organization Address [facility] de Phone Number MARY JANE [address] [place] [address] * POCT glucose (01/25/2018 5:56 AM CDT) Glucose, POC 137 70 - 199 mg/dL [facility] Blood specimen (specimen) 01/25/2018 5:56 AM CDT 01/25/2018 5:56 AM CDT Narrative [facility] - 01/25/2018 5:57 AM CDT Cem De DO LAB POCT ORDERABLES - NILESH CE Final Result Performing Organization Address [facility] de Phone Number MARY JANE ARNOLD [address] [place] [address] * eGFR (01/25/2018 4:16 AM CDT) eGFR 95 mL/min/1.7 3 m2 [facility] Comment: Interpretive Data Reference Interval Normal ?>/= 90 mL/min/1.73m2 Mildly decreased* ? 60 - 89 mL/min/1.73m2 Mildly to moderately decreased ?45 - 59 mL/min/1.73m2 Moderately to severely decreased ??30 - 44 mL/min/1.73m2 Severely decreased ?15 - 29 mL/min/1.73m2 Kidney Failure ?< 15 ??mL/min/1.73m2 *Relative to young adult level If -Kitt[place] multiply value by 1.16. Estimated glomerular filtration [...] AM CDT 01/25/2018 4:32 AM CDT Narrative [facility] - 01/25/2018 4:52 AM CDT Cem De DO LAB BLOOD ORDERABLES Final Result [facility] [address] Department [place] [address] * Differential, auto (01/25/2018 4:16 AM CDT) Neutrophil abs 6.0 1.7 - 6.5 K/cumm [facility] Imm gran abs 0.0 0.0 - 0.1 K/cumm [facility] Lymphocyte abs 2.3 0.8 - 3.3 K/cumm [facility] Monocyte abs 0.8 0.2 - 0.8 K/cumm [facility] Eosinophil abs 0.4 0.0 - 0.5 K/cumm [facility] Basophil abs 0.0 0.0 - 0.1 K/cumm [facility] Neutrophil pct 62.7 % [facility] Comment: Interpretive Data Percent cell count reference ranges are not reported, since discordance with absolute values may lead to misinterpretation of CBC data. Current Interpretive Data was last revised on 2017. Imm gran pct 0.5 % [facility] Comment: Interpretive Data Percent cell count reference ranges are not reported, since discordance with absolute values may lead to misinterpretation of CBC data. Current Interpretive Data was last revised on 2017. Lymphocyte pct 24.4 % [facility] Comment: Interpretive Data Percent cell count reference ranges are not reported, since discordance with absolute values may lead to misinterpretation of CBC data. Current Interpretive Data was last revised on 2017. Monocyte pct 7.9 % [facility] Comment: Interpretive Data Percent cell count reference ranges are not reported, since discordance with absolute values may lead to misinterpretation of CBC data. Current Interpretive Data was last revised on 2017. Eosinophil pct 4.1 % [facility] Comment: Interpretive Data Percent cell count reference ranges are not reported, since discordance with absolute values may lead to misinterpretation of CBC data. Current Interpretive Data was last revised on 2017. Basophil pct 0.4 % [facility] Comment: Interpretive Data Percent cell count reference ranges are not reported, since discordance with absolute values may lead to misinterpretation of CBC data. Current Interpretive Data was last revised on 2017. Blood specimen (specimen) 01/25/2018 4:16 AM CDT 01/25/2018 4:33 AM CDT Narrative MARY JANE - 01/25/2018 4:41 AM CDT Cem De DO LAB BLOOD ORDERABLES Final Result MARY JANE [address] Department [place] [address] * (ABNORMAL) CBC with auto differential (01/25/2018 4:16 AM CDT) WBC 9.5 3.8 - 9.9 K/cumm MARY JANE Hgb 11.8(L) 11.9 - 15.5 g/dL MARY JANE Hct 38.5 35.6 - 45.5 % [facility] Plt 307 150 - 400 K/cumm [facility] CH MPV 9.9 9.1 - 12.3 fL CERNER RBC 4.36 3.90 - 5.20 M/cumm C[facility] MCV 88.3 81.3 - 96.4 fL [facility] MCH 27.1 27.1 - 33.3 pg C[facility]ER MCHC 30.6(L) 32.3 - 35.7 g/dL [facility] CH RDW CV 14.4 11.1 - 14.9 % [facility] CH RDW SD 46.5 35.7 - 48.1 fL [facility] NRBC abs 0.00 0.00 - 0.01 K/cumm [facility] Blood specimen (specimen) 01/25/2018 4:16 AM CDT 01/25/2018 4:33 AM CDT Narrative [facility] - 01/25/2018 4:41 AM CDT Cem De LAB BLOOD ORDERABLES Final Result [facility] [address] Department of Laboratories [place] [id number] * Basic metabolic panel (01/25/2018 4:16 AM CDT) Sodium 136 135 - 145 mmol/L [facility] Potassium, pl 4.3 3.5 - 5.1 mmol/L [facility] Chloride 104 100 - 114 mmol/L [facility] CO2 25 22 - 32 mmol/L [facility] Anion gap 11 8 - 16 mmol/L [facility] BUN 21 8 - 24 mg/dL [facility] Creatinine 0.66 0.60 - 1.30 mg/dL [facility] Glucose 155 70 - 199 mg/dL [facility] Comment: Interpretive Data Fasting glucose >/= [...] Narrative CERNER - 01/25/2018 4:52 AM CDT [facility] BLOOD ORDERABLES Final Result Performing Organization Address City/[facility]/ZIP Co de Phone Number MARY JANE CATALINA [address] [facility] [place] [address] * POCT glucose (01/25/2018 3:25 AM CDT) Glucose, POC 136 70 - 199 mg/dL [facility] Blood specimen (specimen) 01/25/2018 3:25 AM CDT 01/25/2018 3:25 AM CDT Narrative CERNER - 01/25/2018 3:26 AM CDT [facility] POCT ORDERABLES - NILESH CE Final Result Performing Organization Address [facility] Co de Phone Number BCPUJA [address] [facility] [place] [address] * POCT glucose (01/24/2018 9:02 PM CDT) Glucose, POC 181 70 - 199 mg/dL [facility] Blood specimen (specimen) 01/24/2018 9:02 PM CDT 01/24/2018 9:02 PM CDT Narrative CERNER - 01/24/2018 9:05 PM CDT [facility] POCT ORDERABLES - NILESH CE Final Result Performing Organization Address [facility] Co de Phone Number MARY JANE ARNOLD [address] [facility] [place] [address] * POCT glucose (01/24/2018 5:13 PM CDT) Glucose, POC 123 70 - 199 mg/dL [facility] Blood specimen (specimen) 01/24/2018 5:13 PM CDT 01/24/2018 5:13 PM CDT Narrative [facility] - 01/24/2018 5:36 PM CDT [facility] POCT ORDERABLES - NILESH CE Final Result Performing Organization Address [facility] Co de Phone Number MARY JANE ARNOLD [address] [place] [address] * POCT glucose (01/24/2018 11:19 AM CDT) Glucose, POC 141 70 - 199 mg/dL C[facility] Blood specimen (specimen) 01/24/2018 11:19 AM CDT 01/24/2018 11:19 AM CDT Narrative CERNER - 01/24/2018 11:40 AM CDT [facility] Kareem Santino [facility] POCT ORDERABLES - NILESH CE Final Result Performing Organization Address [facility] de Phone Number MARY JANE ARNOLD [address] [place] [address] * (ABNORMAL) POCT glucose (01/24/2018 8:16 AM CDT) Glucose, POC 203(H) 70 - 199 mg/dL [facility] Blood specimen (specimen) 01/24/2018 8:16 AM CDT 01/24/2018 8:16 AM CDT Narrative [facility] - 01/24/2018 8:18 AM CDT [facility] Kareem Santino [facility] POCT ORDERABLES - NILESH CE Final Result MARY JANE ARNOLD [address] Department [place] [address] * eGFR (01/24/2018 6:29 AM CDT) eGFR 99 mL/min/1.7 3 m2 MARY JANE Comment: Interpretive Data Reference Interval Normal ?>/= 90 mL/min/1.73m2 Mildly decreased* ? 60 - 89 mL/min/1.73m2 Mildly to moderately decreased ?45 - 59 mL/min/1.73m2 Moderately to severely decreased ??30 - 44 mL/min/1.73m2 Severely decreased ?15 - 29 mL/min/1.73m2 Kidney Failure ?< 15 ??mL/min/1.73m2 *Relative to young adult level If -Kittitian multiply value by 1.16. Estimated glomerular filtration [...] 01/24/2018 7:10 AM CDT us Britney Zavala [employer] LAB BLOOD ORDERABLES Deann l Result Performing Organization Address [facility] Co de Phone Number MARY JANE ARNOLD [address] Department [place] [address] * (ABNORMAL) Differential, auto (01/24/2018 6:29 AM CDT) Neutrophil abs 6.7(H) 1.7 - 6.5 K/cumm [facility] Imm gran abs 0.0 0.0 - 0.1 K/cumm [facility] Lymphocyte abs 2.5 0.8 - 3.3 K/cumm [facility] Monocyte abs 0.8 0.2 - 0.8 K/cumm [facility] Eosinophil abs 0.4 0.0 - 0.5 K/cumm [facility] Basophil abs 0.0 0.0 - 0.1 K/cumm [facility] Neutrophil pct 64.1 % [facility] Comment: Interpretive Data Percent cell count reference ranges are not reported, since discordance with absolute values may lead to misinterpretation of CBC data. Current Interpretive Data was last revised on 2017. Imm gran pct 0.3 % [facility] Comment: Interpretive Data Percent cell count reference ranges are not reported, since discordance with absolute values may lead to misinterpretation of CBC data. Current Interpretive Data was last revised on 2017. Lymphocyte pct 23.7 % [facility] Comment: Interpretive Data Percent cell count reference ranges are not reported, since discordance with absolute values may lead to misinterpretation of CBC data. Current Interpretive Data was last revised on 2017. Monocyte pct 7.5 % [facility] Comment: Interpretive Data Percent cell count reference ranges are not reported, since discordance with absolute values may lead to misinterpretation of CBC data. Current Interpretive Data was last revised on 2017. Eosinophil pct 4.1 % [facility] Comment: Interpretive Data Percent cell count reference ranges are not reported, since discordance with absolute values may lead to misinterpretation of CBC data. Current Interpretive Data was last revised on 2017. Basophil pct 0.3 % [facility] Comment: Interpretive Data Percent cell count reference ranges are not reported, since discordance with absolute values may lead to misinterpretation of CBC data. Current Interpretive Data was last revised on 2017. Blood specimen (specimen) 01/24/2018 6:29 AM CDT 01/24/2018 6:43 AM CDT [facility] - 01/24/2018 6:47 AM CDT us Britney Zavala [employer] LAB BLOOD ORDERABLES Deann bowman Result CERNER [address] Department [place] [address] * (ABNORMAL) Comprehensive metabolic panel (01/24/2018 6:29 [...] - 01/24/2018 7:10 AM CDT Britney Zavala [employer] LAB BLOOD ORDERABLES Deann l Result MARY JANE ARNOLD [address] [employer] [place], [place] [id number] * (ABNORMAL) CBC with auto differential (01/24/2018 6:29 AM CDT) WBC 10.4(H) 3.8 - 9.9 K/cumm [facility] CH Hgb 11.6(L) 11.9 - 15.5 g/dL [facility] Hct 37.0 35.6 - 45.5 % [facility] Plt 315 150 - 400 K/cumm [facility] CH MPV 9.7 9.1 - 12.3 fL [facility] RBC 4.23 3.90 - 5.20 M/cumm [facility] MCV 87.5 81.3 - 96.4 fL [facility] MCH 27.4 27.1 - 33.3 pg [facility] MCHC 31.4(L) 32.3 - 35.7 g/dL [facility] RDW CV 14.5 11.1 - 14.9 % C[facility]ER RDW SD 45.7 35.7 - 48.1 fL [facility] NRBC abs 0.00 0.00 - 0.01 K/cumm [facility] Blood specimen (specimen) 01/24/2018 6:29 AM CDT 01/24/2018 6:43 AM CDT Narrative [facility] - 01/24/2018 6:47 AM CDT Britney Zavala [employer] LAB BLOOD ORDERABLES Deann l Result MARY JANE ARNOLD [address] Department [employer] [place], [place] [id number] * (ABNORMAL) Lipid panel (01/24/2018 6:29 AM CDT) Cholesterol 161 30 - 199 mg/dL [facility] Comment: Interpretive Data Ages < or = [...] 01/24/2018 7:10 AM CDT us Britney Zavala [employer] LAB BLOOD ORDERABLES Deann l Result Performing Organization Address [facility] Co de Phone Number MARY JANE ARNOLD [address] [place] [address] * POCT glucose (01/24/2018 6:19 AM CDT) Glucose, POC 123 70 - 199 mg/dL [facility] Blood specimen (specimen) 01/24/2018 6:19 AM CDT 01/24/2018 6:19 AM CDT Narrative [facility] - 01/24/2018 6:31 AM CDT us Cem De DO LAB POCT ORDERABLES - NILESH CE Final Result Performing Organization Address [facility] Co de Phone Number MARY JANE [address] [place] [address] * POCT glucose (01/24/2018 3:19 AM CDT) Glucose, POC 127 70 - 199 mg/dL [facility] Blood specimen (specimen) 01/24/2018 3:19 AM CDT 01/24/2018 3:19 AM CDT [facility]ative [facility] - 01/24/2018 3:41 AM CDT us Justen Tavarez MD LAB POCT ORDERABLES - DEVICE Fi nal Result Performing Organization Address [facility] Co de Phone Number MARY JANE ARNOLD [address] [place] [address] * POCT glucose (01/23/2018 8:58 PM CDT) Glucose, POC 82 70 - 199 mg/dL [facility] Blood specimen (specimen) 01/23/2018 8:58 PM CDT 01/23/2018 8:58 PM CDT Narrative MARY JANE ARNOLD - 01/23/2018 9:17 PM CDT Justen Tavarez MD LAB POCT ORDERABLES - DEVICE Fi nal Result MARY JANE ARNOLD [address] Department [place] [address] * XR Chest 1 Vw Portable (01/23/2018 [...] last revised on 2015 Testing performed by: [facility], [place] [address] Estimated Average Glucose 180 mg/dL MARY JANE Comment:Testing performed by : [facility], [place] [address] Blood specimen (specimen) 01/23/2018 4:39 PM CDT 01/24/2018 12:59 PM CDT Narrative MARY JANE - 01/24/2018 2:44 PM CDT Erick Davis MD LAB BLOOD ORDERABLES Final Result [facility] [address] Department [place] [address] * eGFR (01/23/2018 4:39 PM CDT) eGFR 69 mL/min/1.7 3 m2 MARY JANE Comment: Interpretive Data Reference Interval Normal ?>/= 90 mL/min/1.73m2 Mildly decreased* ? 60 - 89 mL/min/1.73m2 Mildly to moderately decreased ?45 - 59 mL/min/1.73m2 Moderately to severely decreased ??30 - 44 mL/min/1.73m2 Severely decreased ?15 - 29 mL/min/1.73m2 Kidney Failure ?< 15 ??mL/min/1.73m2 *Relative to young adult level If -Kittitian multiply value by 1.16. Estimated glomerular filtration [...] PM CDT 01/23/2018 4:44 PM CDT Narrative [facility] - 01/23/2018 5:12 PM CDT us Luci MCKEON LAB BLOOD ORDERABLES Final Re sult [facility] [address] Department [place] [address] * (ABNORMAL) Differential, auto (01/23/2018 4:39 PM CDT) Neutrophil abs 8.6(H) 1.7 - 6.5 K/cumm [facility] Imm gran abs 0.0 0.0 - 0.1 K/cumm [facility] Lymphocyte abs 2.6 0.8 - 3.3 K/cumm [facility] Monocyte abs 0.8 0.2 - 0.8 K/cumm [facility] Eosinophil abs 0.3 0.0 - 0.5 K/cumm [facility] Basophil abs 0.0 0.0 - 0.1 K/cumm [facility] Neutrophil pct 69.2 % [facility] Comment: Interpretive Data Percent cell count reference ranges are not reported, since discordance with absolute values may lead to misinterpretation of CBC data. Current Interpretive Data was last revised on 2017. Imm gran pct 0.4 % [facility] Comment: Interpretive Data Percent cell count reference ranges are not reported, since discordance with absolute values may lead to misinterpretation of CBC data. Current Interpretive Data was last revised on 2017. Lymphocyte pct 20.6 % [facility] Comment: Interpretive Data Percent cell count reference ranges are not reported, since discordance with absolute values may lead to misinterpretation of CBC data. Current Interpretive Data was last revised on 2017. Monocyte pct 6.8 % [facility] Comment: Interpretive Data Percent cell [...] - 01/23/2018 4:49 PM CDT [facility] BLOOD ORDERABLES Final Re sult Performing Organization Address [facility] de Phone Number [facility] [address] Department [place] [address] * Troponin I (01/23/2018 4:39 PM CDT) Troponin I <0.03 0.00 - 0.14 ng/mL MARY JANE Comment: Interpretive Data Normal: ? 0.00 - 0.14 ng/mL Indeterminate: ?0.15 - 0.50 ng/mL MA / Cardiac Muscle Damage: ? >0.50 ng/mL Current interpretive data was last reviewed 2015 Blood specimen (specimen) 01/23/2018 4:39 PM CDT 01/23/2018 4:44 PM CDT Johnathan HINTON - 01/23/2018 5:17 PM CDT [facility] BLOOD ORDERABLES Final Re sult MARY JANE ARNOLD [address] Department [place] [address] * (ABNORMAL) CBC with auto [...] PM CDT 01/23/2018 4:44 PM CDT Narrative [facility] - 01/23/2018 4:49 PM CDT Luci MCKEON LAB BLOOD ORDERABLES Final Re sult MARY JANE ARNOLD [address] Department of Laboratories [place], [place] [id number] * Comprehensive metabolic panel (01/23/2018 4:39 PM [...] CH Glucose 145 70 - 199 mg/dL [facility] Comment: Interpretive Data Fasting glucose >/= [...] PM CDT 01/23/2018 4:44 PM CDT Narrative [facility] - 01/23/2018 5:12 PM CDT us Luci MCKEON LAB BLOOD ORDERABLES Final Re sult [facility] [address] Department [place] [address] * ECG 12 lead (01/23/2018 4:32 PM CDT) Patient age 62 years [facility] Interpretation Text SINUS RHYTHMNORMAL ECGPREVIOUS TRACIN01/14/2018 21.25No significant change compared to prior ECG [facility] Comment:Physician Interprete r Dr. Humberto Armas M.D. Ventricular Rate EKG/Min 93 /min [facility] P Wave Duration 99 ms [facility] QRS-Interval (MSEC) 80 ms [facility] IN-Interval (MSEC) 127 ms [facility] QT Interval 339 ms [facility] QTc 396 ms [facility] QTC Interval ms [facility] P [place] 29 deg [facility] QRS [place] 24 deg [facility] T [place] 61 deg [facility] 01/23/2018 4:32 PM CDT us Luci MCKEON ECG ORDERABLES Final Result [facility] * CT Stroke Head WO Contrast (01/23/2018 [...] * POCT glucose (01/23/2018 4:17 PM CDT) [facility] Signature Glucose, POC 152 70 - 199 mg/dL MARY JANE Blood specimen (specimen) 01/23/2018 4:17 PM CDT 01/23/2018 4:17 PM CDT Narrative MARY JANE - 01/23/2018 4:38 PM CDT Notinfile Unknown LAB POCT ORDERABLES - DEVICE F inal Result MARY JANE [address] Department of Laboratories [place] [id number] documented in this encounter Visit Diagnoses Diagnosis [...] Given 01/24/2018 8:59 PM CDT 20 mg bpwptoheyi-fliqqcbchtici-kqhpimjr (FIORICET, ESGIC) 50-325-40 mg per tablet 1 [...] 4:20 AM CDT 1 tablet influenza quadrivalent [id number] (FLULAVAL,FLUARIX) 60 mcg (15 mcg x 4)/0.5 [...] - Provider: Aislinn Vargas LPN) influenza quadrivalent [id number] (FLULAVAL,FLUARIX) 60 mcg (15 mcg x 4)/0.5 [...] Jennifer Costa, NURIS) 0818 (Given - Provider: Asilinn Vargas LPN) insulin lispro (HumaLOG) injection 1-2 [...] LPN)1715 (Given - Provider: Aislinn Vargas LPN) lisinopril (PRINIVIL,ZESTRIL) tablet 20 mg 20 [...] 1716 (Given - Provider: Aislinn Vargas LPN) rivaroxaban (XARELTO) tablet 20 mg 20 [...] 01/23/2018 documented in this encounter Care Teams Bench Assembly Inspector Relationship Specialty Start Date End Date Justen Gale MD [address] [address] PCP - General 10/09/17 Liu Jerez MD Consulting Physician Gastroenterology 07/28/17 [place] [address] [place] [address] [id number] [place] [address] Consulting Physician Pulmonary Disease 08/03/17 Khris Arthur MD [address] [facility] [address] [place] [address] Medical Oncologist/Spoon Maker Medical Oncology 10/23/17 [place] [address] [facility] [address] [place] [address] Surgeon Orthopedic Surgery 10/23/17 [place] [address] [address] Consulting Physician Pain Management 10/23/17 [place] [address] [address] Referring Physician General Surgery 01/26/18 [place] [address] [facility] [address] [place] [address] Consulting Physician Neurology 01/26/18 documented as of this encounter
--- OUTSIDE RECORDS SUMMARY | 2024-04-26 09:27 | XMS_ITS | Encounter Summary ---
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 [address] [place] [address] Surgeon Orthopedic Surgery 10/23/17 [place] [address] [address] [facility] [address] [place] [address] Consulting Physician Pain Management 10/23/17 documented as of this encounter
--- OUTSIDE RECORDS SUMMARY | 2024-04-26 09:27 | XMS_ITS | Encounter Summary ---
Author Organization [facility] Healthcare Address [address] [place] [address] Care Team Providers Care Director Digital Name Role Phone Liu Jerez MD Unavailable Albert Corbin MD Unavailable [phone] Justen Gale MD Primary Care Provider Khris Arthur MD Unavailable [phone] Ko Melendez MD Unavailable [phone] John Paul Moyer MD Unavailable Encounter Details Date Type Department Care Team (Latest Contact Info) Description 01/25/2018 4:18 PM CDT - 01/25/2018 11:59 PM CDT Hospital Encounter [facility] [address] [place] [address] Discharge Disposition: Discharge to home [...] on file 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 Gender Identity Not on file Sexual [...] filedocumented in this encounter Care Teams Director Digital Relationship Specialty Start Date End Date Justen Gale MD 2 [facility] [address] [place] [address] PCP - General 10/09/17 Liu Jerez MD Consulting Physician Gastroenterology 07/28/17 [place] [address] [address] [facility] [address] [place] [address] Consulting Physician Pulmonary Disease 08/03/17 Khris Arthur MD [address] [facility] [address] [place] [address] Medical Oncologist/Medical Records Custodian Medical Oncology 10/23/17 [place] [address] [facility] [address] [place] [address] Surgeon Orthopedic Surgery 10/23/17 [place] [address] [address] [facility] [address] [place] [address] Consulting Physician Pain Management 10/23/17 documented as of this encounter
--- OUTSIDE RECORDS SUMMARY | 2024-04-26 09:27 | XMS_ITS | Encounter Summary ---
Author Organization [facility] Address [address] [place] [address] Phone Care Team Providers Care Traveling Engineer Name Role Phone Liu Jerez MD Unavailable Albert Corbin MD Unavailable Justen Gale MD Primary Care Provider [phone] Khris Arthur MD Unavailable + [phone] Ko Melendez MD Unavailable [phone] John Paul Moyer MD Unavailable Reason for Visit * Oncology (Routine) - Closed Specialty Diagnoses / Procedures Referred By Contac t Referred To Contact Medical Oncology / Oncology Diagnoses lab, sury Procedures RETURN Referral, Self Khris Arthur MD [address] [facility] [address] [place] [address] Phone: tel: fax: Referral ID Status Reason Start Date Expiration Date V isits Requested Visits Authorized [id number] Closed Specialty Services Required 12/14/2017 06/12/2018 12 12 Encounter Details Date Type Department Care Team (Late st Contact Info) Description 01/16/2018 3:00 PM CDT Office Visit [facility] Oncology [address] [facility] 7th [place] [address] [place] [address] Khris Arthur MD [address] [facility] [address] [place] [address] Malignant neoplasm of overlapping sites of left [...] on file 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 3. Cytology on 07/21/2014 [...] Monday. She is scheduled to see anew simulation engineer on Monday for her diabetes. She is [...] directed, Disp: , Rfl: ??? blood-glucose meter [facility], Diagnosis: Diabetes Type 2 Blood testing frequency: [...] Rfl: ??? ONETOUCH DELICA LANCETS 33 gauge [facility], TEST UTD, Disp: , Rfl: 0 ??? [...] Sodium 139 135 - 145 mmol/L [facility] Potassium, pl 4.3 3.3 - 4.9 mmol/L [facility] Chloride 103 97 - 110 mmol/L [facility] CO2 28 22 - 32 mmol/L [facility] Anion gap 8 2 - 15 mmol/L [facility] BUN 17 8 - 25 mg/dL [facility] Creatinine 0.74 0.60 - 1.10 mg/dL [facility] Glucose 118 70 - 199 mg/dL [facility] Comment: Interpretive Data Fasting glucose [...] 2017. Calcium 10.0 8.5 - 10.3 mg/dL [facility] Bilirubin, total 0.4 0.1 - 1.2 mg/dL [facility] Protein, pl 8.4 6.5 - 8.5 g/dL [facility] Albumin 3.8 3.5 - 5.0 g/dL [facility] Alk phos 87 40 - 130 Units/L [facility] ALT 27 7 - 45 Units/L [facility] AST 30 10 - 45 Units/L [facility] Blood specimen (specimen) 08/28/2018 1:21 PM CDT 08/28/2018 1:35 PM CDT Narrative [facility] - 08/28/2018 2:10 PM CDT Darcy Goel NP LAB BLOOD ORDERABLES Final Result [facility] Department [place] [address] * (ABNORMAL) CBC with auto differential (08/28/2018 1:20 PM CDT) WBC 11.1(H) 3.8 - 9.8 K/cumm [facility]ER BJ Comment:Testing performed by : [facility], [address] [place] [address] Hgb 12.4 12.1 - 15.1 g/dL [facility] BJ Comment:Testing performed by : [place] [id number] Hct 38.8 36.1 - 44.3 % [facility] BJ Comment:Testing performed by : [facility], [address] [place] [address] Plt 326 140 - 440 K/cumm [facility] BJ Comment:Testing performed by : [place] [id number] MPV 7.2 6.8 - 10.4 fL [facility] BJ Comment:Testing performed by : [place] [id number] RBC 4.44 3.90 - 5.00 M/cumm [facility] BJ Comment:Testing performed by : [place] [address] MCV 87.5 80.0 - 97.6 fL [facility] BJ Comment:Testing performed by : [place] [address] MCH 27.9 26.7 - 33.7 pg [facility] BJ Comment:Testing performed by : [place] [address] MCHC 31.9(L) 32.7 - 35.5 g/dL [facility] BJ Comment:Testing performed by : [place] [id number] RDW CV 14.5 11.8 - 14.6 % [facility] BJ Comment:Testing performed by : [place] [id number] NRBC abs 0.01 0.00 - 0.01 K/cumm [facility]J Comment:Testing performed by : [place] [id number] Blood specimen (specimen) 08/28/2018 1:20 PM CDT 08/28/2018 1:22 PM CDT Narrative MARY JANE ANGELES - 08/28/2018 1:28 PM CDT Darcy Goel FILM WAXER LAB BLOOD ORDERABLES Final Result [facility] Department [place] [address] documented in this encounter Visit Diagnoses Diagnosis [...] 01/23/2018 added in this encounter Care Teams Traveling Engineer Relationship Specialty Start Date End Date Justen Gale MD 2 [facility] [address] [place] [address] PCP - General 10/09/17 Liu Jerez MD Consulting Physician Gastroenterology 07/28/17 [place] [address] [facility] [address] [place] [address] Consulting Physician Pulmonary Disease 08/03/17 [place] [address] [place] [address] [address] [place] [address] Medical Oncologist/Armament Mechanic Medical Oncology 10/23/17 [place] [address] [address] Surgeon Orthopedic Surgery 10/23/17 [place] [address] [address] [address] Consulting Physician Pain Management 10/23/17 documented as of this encounter
--- OUTSIDE RECORDS SUMMARY | 2024-04-26 09:27 | XMS_ITS | Encounter Summary ---
Author Organization [facility] Healthcare Address [address] [place] [address] Care Team Providers Care Family Lawyer Name Role Phone Liu Jerez MD Unavailable [phone] Albert Corbin MD Unavailable Justen Gale MD Primary Care Provider Khris Arthur MD Unavailable [phone] Ko Melendez MD Unavailable [phone] John Paul Moyer MD Unavailable [phone] Annel Rod MD Unavailable Anali MARSHALL MD, Carlos M. 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 [address] [place] [address] Consulting Physician Pulmonary Disease 08/03/17 Khris Arthur MD [address] [facility] [address] [place] [address] Medical Oncologist/Chicken Handler Medical Oncology 10/23/[address] [place] [address] [facility] [address] [place] [address] Surgeon Orthopedic Surgery 10/23/17 [place] [address] [facility] [address] [place] [address] Consulting Physician Pain Management 10/23/[address] [place] [address] [facility] [address] [place] [address] Referring Physician General Surgery 01/26/18 [place] [address] [facility] [address] [place] [address] Consulting Physician Neurology 01/26/18 documented as of this encounter
--- OUTSIDE RECORDS SUMMARY | 2024-04-26 09:28 | XMS_ITS | Encounter Summary ---
Author Organization [facility] Address [address] [place] [address] Phone Care Team Providers Care Hydraulic Operator Name Role Phone Liu Jerez MD Unavailable Albert Corbin MD Unavailable [phone] Justen Gale MD Primary Care Provider Khris Arthur MD Unavailable [phone] Ko Melendez MD Unavailable [phone] John Paul Moyer MD Unavailable Encounter Details Date Type Department Care Team (Late st Contact Info) Description 11/20/2017 Orders Only [facility] Oncology [address] [facility] 7th [place] [address] [place] [address] Khris Arthur MD [address] 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 Gender Identity Not on file Sexual Orientation Not on file documented as of this encounter Plan of Treatment Not on file documented as of this encounter Visit Diagnoses Not on filedocumented in this encounter Care Teams Hydraulic Operator Relationship Specialty Start Date End Date Justen Gale MD [address] [address] PCP - General 10/09/17 Liu Jerez MD Consulting Physician Gastroenterology 07/28/17 [place] [address] [facility] [address] [place] [address] Consulting Physician Pulmonary Disease 08/03/17 Khris Arthur MD [address] [facility] [address] [place] [address] Medical Oncologist/Kitchen Mechanic Medical Oncology 10/23/17 [place] [address] [facility] [address] [place] [address] Surgeon Orthopedic Surgery 10/23/17 [place] [address] [facility] [address] [place] [address] Consulting Physician Pain Management 10/23/17 documented as of this encounter
--- OUTSIDE RECORDS SUMMARY | 2024-04-26 09:28 | XMS_ITS | Encounter Summary ---
Author Organization [facility] Healthcare Address [address] [place] [address] Care Team Providers Care Collections Professional Name Role Phone Liu Jerez MD Unavailable [phone] Albert Corbin MD Unavailable Justen Gale MD Primary Care Provider Khris Arthur MD Unavailable [phone] Ko Melendze MD Unavailable John Paul Moyer MD Unavailable Reason for Visit * Reason Comments Back Pain Encounter Details Date Type Department Care Team (Late st Contact Info) Description 12/31/2017 11:13 PM CDT - 01/01/2018 12:35 AM CDT Emergency [facility] Emergency Department [address] [place] [address] [place] [address] [facility] [address] [place] [address] Chronic left-sided low back pain [...] on file 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 * Chronic Pain (Macanese) documented in this encounter Medications at Time of Discharge rOPINIRole (REQUIP) 5 mg tablet Take 1 tablet (5 mg total) by mouth nightly Taken at 2100 albuterol HFA (PROVENTIL HFA) 90 mcg/actuation inhaler Inhale 2 puffs. 08/15/2017 8 blood glucose diagnostic (ADVANCED GLUC METER TEST STRIP) strip Use as directed 11/09/2017 8 blood-glucose meter [facility] Diagnosis: Diabetes Type 2 Blood testing frequency: [...] with hyperglycemia, with long-term current use of insulin([facility]) 11/06/2017 ??? Allergy to drug 11/06/2017 ??? Dysuria 10/26/2017 ??? Acute left-sided low back pain with left-sided sciatica 10/23/2017 ??? Type 2 diabetes mellitus with neurologic complication, without long-term current use of insulin([facility]) 10/23/2017 ??? Essential hypertension 10/23/2017 ??? Long-term [...] 12/31/2017 documented in this encounter Care Teams Collections Professional Relationship Specialty Start Date End Date Justen Gale MD [address] [address] PCP - General 10/09/17 Liu Jerez MD Consulting Physician Gastroenterology 07/28/17 [place] [address] [facility] [address] [place] [address] Consulting Physician Pulmonary Disease 08/03/17 Khris Arthur MD [address] [facility] [address] [place] [address] Medical Oncologist/Administrative Dietitian Medical Oncology 10/23/17 [place] [address] [address] [facility] [address] [place] [address] Surgeon Orthopedic Surgery 10/23/17 [place] [address] [address] [facility] [address] [place] [address] Consulting Physician Pain Management 10/23/17 documented as of this encounter
--- OUTSIDE RECORDS SUMMARY | 2024-04-26 09:28 | XMS_ITS | Encounter Summary ---
Author Organization [facility] Healthcare Address [address] [place] [address] Care Team Providers Care Help Desk Team Leader Name Role Phone Liu Jerez MD Unavailable [phone] Maria D Corbin MD Unavailable [phone] Justen Gale MD Primary Care Provider Khris Arthur MD Unavailable [phone] Ko Melendez MD Unavailable John Paul Moyer MD Unavailable Reason for Visit * Reason Comments Chest Pain Shortness of Breath Encounter Details Date Type Department Care Team (Late st Contact Info) Description 12/15/2017 11:28 PM CDT - 12/16/2017 3:54 AM CDT Emergency [facility] Emergency Department [address] [place] [address] Maria D Meyer, [address] [place] [address] Chest pain, unspecified type (Primary Dx); Dyspnea, [...] on file 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 * Chest Pain (AfterCare(R) Instructions(ER/ED)) (Solomon Islander) documented in this encounter Medications at [...] Use as directed 11/09/2017 8 [facility]: Diabetes Type 2 Blood testing frequency: [...] with hyperglycemia, with long-term current use of insulin([facility]) 11/06/2017 ??? Allergy to drug 11/06/2017 ??? [...] for Troponin assay. References: 1. Clin Chem 2013;59:4016-7408 2. Journal of the [place] College [employer]iology 2012;60:1581-98 Current Interpretive Data Last Revised Date: 2017. Blood specimen (specimen) 12/16/2017 2:45 AM CDT 12/16/2017 3:02 AM CDT Narrative MARY JANE ARNOLD - 12/16/2017 3:30 AM CDT Maria D Meyer DO LAB BLOOD ORDERABLES Final Res ult MARY JANE [address] [address] Department [place] [address] * eGFR (12/16/2017 12:25 AM CDT) eGFR 65 mL/min/1.7 3 m2 MAR YJANE Comment: Interpretive Data Reference Interval Normal ?>/= [...] DO LAB BLOOD ORDERABLES Final Res ult [facility] [address] [address] Department [place] [address] * (ABNORMAL) Differential, auto (12/16/2017 12:25 AM CDT) Neutrophil abs 8.2(H) 1.7 - 6.5 K/cumm [facility] Imm gran abs 0.1 0.0 - 0.1 K/cumm [facility] Lymphocyte abs 2.6 0.8 - 3.3 K/cumm [facility] Monocyte abs 0.8 0.2 - 0.8 K/cumm [facility] Eosinophil abs 0.2 0.0 - 0.5 K/cumm [facility] Basophil abs 0.0 0.0 - 0.1 K/cumm [facility] Neutrophil pct 68.6 % [facility] Comment: Interpretive Data Percent cell count reference ranges are not reported, since discordance with absolute values may lead to misinterpretation of CBC data. Current Interpretive Data was last revised on 2017. Imm gran pct 0.5 % [facility] Comment: Interpretive Data Percent cell count reference ranges are not reported, since discordance with absolute values may lead to misinterpretation of CBC data. Current Interpretive Data was last revised on 2017. Lymphocyte pct 21.9 % [facility] Comment: Interpretive Data Percent cell count reference ranges are not reported, since discordance with absolute values may lead to misinterpretation of CBC data. Current Interpretive Data was last revised on 2017. Monocyte pct 6.5 % [facility] Comment: Interpretive Data Percent cell count reference ranges are not reported, since discordance with absolute values may lead to misinterpretation of CBC data. Current Interpretive Data was last revised on 2017. Eosinophil pct 2.1 % [facility] Comment: Interpretive Data Percent cell count [...] AM CDT 12/16/2017 12:35 AM CDT N[facility]ative [facility] - 12/16/2017 12:49 AM CDT Maria D Meyer DO LAB BLOOD ORDERABLES Final Res ult Performing Organization Address [facility] Co de Phone Number MARY JANE [address] [address] [facility] [place] [address] * B-type natriuretic peptide (12/16/2017 12:25 AM CDT) B-Type Natriuretic Peptide (BNP) 15 0 - 100 pg/mL MARY JANE Blood specimen (specimen) 12/16/2017 12:25 AM CDT 12/16/2017 12:55 AM CDT Narrative [facility] - 12/16/2017 1:20 AM CDT Maria D Meyer DO LAB BLOOD ORDERABLES Final Res ult Performing Organization Address [facility] Co de Phone Number MARY JANE [phone] [address] [facility] [place] [address] * Troponin I (12/16/2017 12:25 AM CDT) [...] for Troponin assay. References: 1. Clin Chem 2013;59:7745-7648 2. Journal of the [place] College of Cardiology 2012;60:1581-98 Current Interpretive Data Last Revised Date: 2017. Blood specimen (specimen) 12/16/2017 12:25 AM CDT 12/16/2017 12:35 AM CDT Narrative CERNER CH - 12/16/2017 1:09 AM CDT us Maria D Meyer DO LAB BLOOD ORDERABLES Final Res ult MARY JANE [address] [address] Department [place] [address] * (ABNORMAL) Comprehensive metabolic panel (12/16/2017 12:25 AM CDT) Sodium 133(L) 135 - 145 mmol/L [facility] Potassium, pl 4.4 3.5 - 5.1 mmol/L [facility] Chloride 98(L) 100 - 114 mmol/L [facility]ER CO2 27 22 - 32 mmol/L [facility] Anion gap 12 8 - 16 mmol/L [facility] BUN 18 8 - 24 mg/dL [facility] Creatinine 0.95 0.60 - 1.30 mg/dL [facility] Glucose 225(H) 70 - 199 mg/dL [facility] Comment: Interpretive Data Fasting glucose [...] DO LAB BLOOD ORDERABLES Final Res ult [facility] [address] [address] Department [place] [address] * (ABNORMAL) CBC with auto differential (12/16/2017 12:25 AM CDT) WBC 11.9(H) 3.8 - 9.9 K/cumm [facility] Hgb 12.8 11.9 - 15.5 g/dL [facility] Hct 41.0 35.6 - 45.5 % [facility] Plt 339 150 - 400 K/cumm [facility] MPV 9.9 9.1 - 12.3 fL [facility] RBC 4.65 3.90 - 5.20 M/cumm [facility] MCV 88.2 81.3 - 96.4 fL [facility] MCH 27.5 27.1 - 33.3 pg [facility] MCHC 31.2(L) 32.3 - 35.7 g/dL [facility] RDW CV 15.2(H) 11.1 - 14.9 % [facility]ER CH RDW SD 48.8(H) 35.7 - 48.1 fL [facility] NRBC abs 0.00 0.00 - 0.01 K/cumm [facility] Blood specimen (specimen) 12/16/2017 12:25 AM CDT 12/16/2017 12:35 AM CDT Narrative MARY JANE - 12/16/2017 12:49 AM CDT us Maria D Meyer DO LAB BLOOD ORDERABLES Final Res ult MARY JANE [address] [facility] Department [place] [address] * XR Chest Pa Lateral [...] 11:13 PM CDT) Patient age [address] [facility] Interpretation Text SINUS RHYTHMNORMAL ECGPREVIOUS TRACIN11/27/2017 20.18No significant change compared to prior ECG [facility] Comment:Physician Interprete r Dr. Humberto Armas M.D. Ventricular Rate EKG/Min 87 /min [facility] P Wave Duration [address] [facility] QRS-Interval (MSEC) [address] [facility] DC-Interval (MSEC) [address] [facility] QT Interval [address] [facility] QTc [address] [facility] QTC Inter[facility] ms [facility] P Bogard [address] [facility] QRS [place] 11 deg [facility] T Bogard [address] [facility] 12/15/2017 11:1 3 PM CDT Narrative [...] with hyperglycemia, with long-termcurrent use of insulin ([facility]) 11/06/2017 ? ? Allergy to drug 11/06/2017 ? ? Dysuria 10/26/2017 ? ? Acute left-sided low back pain with left-sided sciatica 10/23/2017 ? ? Type 2 diabetes mellitus with neurologic complication, without long-termcurrent use of insulin ([facility]) 10/23/2017 ? ? Essential hypertension 10/23/2017 ? ? Long-term current use of opiate analgesic 10/23/2017 ? ? Lumbosacral spondylosis without myelopathy 10/23/2017 ? ? Radiculopathy, lumbosacral region 10/23/2017 ? ? Spinal stenosis of lumbar region without neurogenic xbyschnubkka78/02/2018 ? ? 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 ? ? Type 2 diabetes mellitus with hyperglycemia, without long-term currentuse of insulin ([facility]) ? ? Constipation ? ? Malignant neoplasm [...] possible Hypertension. By: Adriel Penny Time: 12/16 459 Comment: Rechecked patient. Condition is improved. Discussed [...] ECG ORDERABLES Final Resu lt [facility] documented in this encounter Visit [...] RN) documented in this encounter Care Teams Help Desk Team Leader Relationship Specialty Start Date End Date Justen Gale MD [address] [address] PCP - General 10/09/17 Liu Jerez MD Consulting Physician Gastroenterology 07/28/17 [place] [address] [facility] [address] [place] [address] Consulting Physician Pulmonary Disease 08/03/17 Khris Arthur MD [address] [place] [address] [address] [place] [address] Medical Oncologist/Poultry Farm Manager Medical Oncology 10/23/17 [place] [address] [address] Surgeon Orthopedic Surgery 10/23/17 [place] [address] [address] [address] Consulting Physician Pain Management 10/23/17 documented as of this encounter
--- OUTSIDE RECORDS SUMMARY | 2024-04-26 09:28 | XMS_ITS | Encounter Summary ---
Author Organization [facility] Address [address] [place] [address] Phone Care Team Providers Care Box Printing Machine Operator Name Role Phone Liu Jerez MD Unavailable Albert Corbin MD Unavailable Justen Gale MD Primary Care Provider Khris Arthur MD Unavailable [phone] Ko Melendez MD Unavailable John Paul Moyer MD Unavailable Encounter Details Date Type Department Care Team (Late st Contact Info) Description 12/19/2017 Orders Only [facility] Oncology [address] 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 Gender Identity Not on file Sexual Orientation Not on file documented as of this encounter Plan of Treatment Not on file documented as of this encounter Visit Diagnoses Not on filedocumented in this encounter Care Teams Box Printing Machine Operator Relationship Specialty Start Date End Date Justen Gale MD 2 [facility] [address] [place] [address] PCP - General 10/09/17 Liu Jerez MD Consulting Physician Gastroenterology 07/28/17 [place] [address] [address] [facility] [address] [place] [address] Consulting Physician Pulmonary Disease 08/03/17 Khris Arthur MD [address] [facility] [address] [place] [address] Medical Oncologist/Beam Dyer Medical Oncology 10/23/17 [place] [address] [address] [facility] [address] [place] [address] Surgeon Orthopedic Surgery 10/23/17 [place] [address] [facility] [address] [place] [address] Consulting Physician Pain Management 10/23/17 documented as of this encounter
--- OUTSIDE RECORDS SUMMARY | 2024-04-26 09:28 | XMS_ITS | Encounter Summary ---
Author Organization [facility] Healthcare Address [address] [place] [address] Care Team Providers Care Energy Technician Name Role Phone Liu Jerez MD Unavailable [phone] Albert Corbin MD Unavailable Justen Gale MD Primary Care Provider Khris Arthur MD Unavailable [phone] Ko Melendez MD Unavailable [phone] John Paul Moyer MD Unavailable Encounter Details Date Type Department Care Team (Late st Contact Info) Description 12/15/2017 Telephone [facility] [address] [place] [address] Marie Gonzalez RN Social History Tobacco Use Types Packs/Day Years Used Date Smoking Tobacco: Former Smokeless Tobacco: Never Comments:remote tobacco use Alcohol Use Standard Drinks/Week Comments No 0 (1 standard drink = 0.6 oz pur e alcohol) Comments No Sex and Gender Information Value Date Recorded Sex Assigned at Not on file 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 Arthur by fax in the [facility]. However, the patient is a current patient of Dr. Arthur. The referral was emailed to Sakshi LAM and González Marquez MA for Dr. Arthur. From: Marie Gonzalez Sent: Friday, December 15, 2017 9:18 AM To: Sakshi Barrientos ([facility]) <[email or web address]> Cc: González Marquez ([facility]) <[email or web address]> Subject: FW: re: LH Importance: High From: Marie Gonzalez Sent: Friday, December 15, 2017 9:17 AM To: 'Freda Gray ([facility])' <[email or web address]> Cc: González Marquez ([facility]) < > Subject: re: LH Importance: High re: Karly Velez 57 Hi ladies, We received a referral on the above patient (referral attached). However, the patient is already a patient of Dr. Arthur. So I am sending you the records/referral. Thank you, Marie Gonzalez RN BSN Nurse Coordinator [facility] Patient Care Coordination Center [address] [place] [address] 8th Floor [facility] [address] Toll free: [phone] Email: [email or web address] documented in this encounter Plan of Treatment Not on file documented as of this encounter Visit Diagnoses Not on filedocumented in this encounter Care Teams Energy Technician Relationship Specialty Start Date End Date Justen Gale MD 2 [place] [address] PCP - General 10/09/17 Liu Jerez MD Consulting Physician Gastroenterology 07/28/17 [place] [address] [address] [facility] [address] [place] [address] Consulting Physician Pulmonary Disease 08/03/17 Khris Arthur MD [address] [facility] [address] [place] [address] Medical Oncologist/Light Oil Operator Medical Oncology 10/23/17 [place] [address] [address] [facility] [place] [address] Surgeon Orthopedic Surgery 10/23/17 [place] [address] [address] [place] [address] Consulting Physician Pain Management 10/23/17 documented as of this encounter
--- OUTSIDE RECORDS SUMMARY | 2024-04-26 09:28 | XMS_ITS | Encounter Summary ---
Author Organization [facility] Address [address] [place] [address] Phone Care Team Providers Care Certified Registered Nurse Anesthetist Name Role Phone Liu Jerez MD Unavailable Albert Corbin MD Unavailable Justen Gale MD Primary Care Provider [phone] Khris Arthur MD Unavailable [phone] Ko Melendez MD Unavailable John Paul Moyer MD Unavailable Encounter Details Date Type Department Care Team (Late st Contact Info) Description 12/18/2017 Orders Only [facility] Oncology [address] [facility] 7th [place] [address] [place] [address] Khris Arthur MD [address] [facility] [address] [place] [address] Malignant neoplasm of overlapping sites of left [...] on file 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 Gender Identity Not on file Sexual Orientation Not on file documented as of this encounter Plan of Treatment Not on file documented as of this encounter Visit Diagnoses Diagnosis Malignant neoplasm of overlapping sites of left female breast, unspecified estrogen receptor status (HCC)- Primary documented in this encounter Care Teams Certified Registered Nurse Anesthetist Relationship Specialty Start Date End Date Justen Gale MD [address] [address] PCP - General 10/09/17 Liu Jerez MD Consulting Physician Gastroenterology 07/28/17 [place] [address] [address] [facility] [address] [place] [address] Consulting Physician Pulmonary Disease 08/03/17 [place] [address] [place] [address] [address] [place] [address] Medical Oncologist/Follow Up Specialist Medical Oncology 10/23/17 [place] [address] [address] [facility] [address] [place] [address] Surgeon Orthopedic Surgery 10/23/17 [place] [address] [address] [facility] [address] [place] [address] Consulting Physician Pain Management 10/23/17 documented as of this encounter
--- OUTSIDE RECORDS SUMMARY | 2024-04-26 09:28 | XMS_ITS | Encounter Summary ---
Author Organization 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 Gender Identity Not on file Sexual [...] Use as directed 11/09/2017 8 blood-glucose meter [facility] Diagnosis: Diabetes Type 2 Blood testing frequency: [...] documented as of this encounter Care Teams Ladle Filler Relationship Specialty Start Date End Date Justen Gale MD [address] [address] PCP - General 10/09/17 Liu Jerez MD Consulting Physician Gastroenterology 07/28/17 [place] [address] [address] [facility] [address] [place] [address] Consulting Physician Pulmonary Disease 08/03/17 Khris Arthur MD [address] [facility] [address] [place] [address] Medical Oncologist/Railcar Carpenter Medical Oncology 10/23/17 [place] [address] [address] [facility] [address] [place] [address] Surgeon Orthopedic Surgery 10/23/17 [place] [address] [address] [facility] [address] [place] [address] Consulting Physician Pain Management 10/23/17 documented as of this encounter
--- OUTSIDE RECORDS SUMMARY | 2024-04-26 09:28 | XMS_ITS | Encounter Summary ---
Author Organization [facility] Healthcare Address [address] [place] [address] Care Team Providers Care Skin Diving Teacher Name Role Phone Liu Jerez MD Unavailable Albert Corbin MD Unavailable [phone] Justen Gale MD Primary Care Provider Khris Arthur MD Unavailable [phone] Ko Melendez MD Unavailable [phone] John Paul Moyer MD Unavailable Encounter Details Date Type Department Care Team (Late st Contact Info) Description 12/18/2017 Telephone [facility] [address] [place] [address] Yesenia Newton RN Social History Tobacco Use Types Packs/Day Years Used Date Smoking Tobacco: Former Smokeless Tobacco: Never Comments:remote tobacco use Alcohol Use Standard Drinks/Week Comments No 0 (1 standard drink = 0.6 oz pur e alcohol) Comments No Sex and Gender Information Value Date Recorded Sex Assigned at Not on file 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 [place] FAXED REQUEST TOMED/ONC. PT IS CURRENT PT OF DR ARTHUR. documented in this encounter Plan of Treatment Not on file documented as of this encounter Visit Diagnoses Not on filedocumented in this encounter Care Teams Skin Diving Teacher Relationship Specialty Start Date End Date Justen Gale MD [address] [address] PCP - General 10/09/17 Liu Jerez MD Consulting Physician Gastroenterology 07/28/17 [place] [address] [address] [facility] [address] [place] [address] Consulting Physician Pulmonary Disease 08/03/17 [place] [address] [place] [address] [address] [place] [address] Medical Oncologist/Police Superintendent Medical Oncology 10/23/17 [place] [address] [address] [facility] [address] [place] [address] Surgeon Orthopedic Surgery 10/23/17 [place] [address] [address] [facility] [address] [place] [address] Consulting Physician Pain Management 10/23/17 documented as of this encounter
--- OUTSIDE RECORDS SUMMARY | 2024-04-26 09:28 | XMS_ITS | Encounter Summary ---
Author Organization [facility] Healthcare Address [address] [place] [address] Care Team Providers Care Hand Finisher Name Role Phone Liu Jerez MD Unavailable [phone] Albert Corbin MD Unavailable Justen Gale MD Primary Care Provider Khris Arthur MD Unavailable [phone] Ko Melendez MD Unavailable John Paul Moyer MD Unavailable Encounter Details Date Type Department Care Team (Latest Contact Info) Description 12/15/2017 11:33 PM CDT - 12/15/2017 11:59 PM CDT Hospital Encounter [facility] Diagnostic Imaging [address] [place] [address] [place] [address] [facility] [address] [place] [address] Discharge Disposition: Discharge to home [...] on file 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 Gender Identity Not on file Sexual Orientation [...] Use as directed 11/09/2017 8 blood-glucose meter [facility] Diagnosis: Diabetes Type 2 Blood testing frequency: [...] filedocumented in this encounter Care Teams Hand Finisher Relationship Specialty Start Date End Date Justen Gale MD [address] [address] PCP - General 10/09/17 Liu Jerez MD Consulting Physician Gastroenterology 07/28/17 [place] [address] [address] [facility] [address] [place] [address] Consulting Physician Pulmonary Disease 08/03/17 Khris Arthur MD [address] [facility] [address] [place] [address] Medical Oncologist/Responder Medical Oncology 10/23/17 [place] [address] [address] [facility] [address] [place] [address] Surgeon Orthopedic Surgery 10/23/17 [place] [address] [address] [facility] [address] [place] [address] Consulting Physician Pain Management 10/23/17 documented as of this encounter
--- OUTSIDE RECORDS SUMMARY | 2024-04-26 09:28 | XMS_ITS | Encounter Summary ---
Author Organization [facility] Healthcare Address [address] [place] [address] Care Team Providers Care Buckle Coverer Name Role Phone Liu Jerez MD Unavailable Albert Corbin MD Unavailable Justen Gale MD Primary Care Provider Khris Arthur MD Unavailable [phone] Ko Melendez MD Unavailable John Paul Moyer MD Unavailable [phone] Reason for Visit * Reason Comments Hyperglycemia Encounter Details Date Type Department Care Team (Latest Contact Info) Description 11/11/2017 8:46 PM CDT - 11/14/2017 2:50 PM CDT Hospital Encounter [facility] [address] [place] [address] [place] [address] [facility] [address] [place] [address] [place] [address] [facility] [address] [place] [address] [place] [address] [facility] [address] [place] [address] [place] [address] [address] [facility] [address] [place] [address] Diabetes mellitus due to underlying condition with hyperosmolarity without coma, unspecified whether half-way insulin use ([facility]) (Primary Dx); Leukocytosis, unspecified type Discharge Disposition: [...] file Legal Sex Female 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 Yes, Outside of home Number of steps inside: 2 steps Living Arrangements Children ( Lives with daughter Yunior Marques [phone]) Support Systems Children;Spouse/significant other (Pt & spouse are but still amicable & he provides support when needed. Jimmie Marques [phone].) Assistance Needed Needs assistance with with ADLs. 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 Patient expects to be discharged to: Private residence Does the patient need discharge transport arranged? No SALT MANAGER completed. Goal upon discharge is to return home with her dtr. Pt states is independent but herdwolf Mojica is her hired choreworker. Pt has [facility] [employer] insurance & Medicaid [place] on disability. Pt states has a Living Will but copy at home. Pt requested to bring in copy with next hospitalvisit in order to have on file. DME includes a functioning CPAP; walker, & cane that she uses oc casionally. PCP is Dr. Justen Gale. Preferred pharmacy is [place], [place]. Pt denies any home needs & is awaiting discharge paperwork. Jimmie is to transport home. * Zhen Carter MD - 11/13/2017 4:53 PM CDT General Medicine Daily Progress Subjective Chief complaint of Constitutional symptoms mostly 2/2 uncontrolled sugars Interval History: She was discharged by me about 6 days ago with detailed and clear instructions from me, tobacco prevention health educator . She was told to start [...] the hospital discharge recommendations than what his SHEARING SHED WORKER did Objective Vitals: 24hr Min/Max: Temp Min: [...] hyperglycemia, with long-term current use of insulin ([facility]) Active Problems: Restless legs syndrome Generalized weakness [...] overnight Zhen Carter MD Hospitalist Internal Medicine [phone] documented in this encounter H&P Notes * Yulisa Christensen NP - 11/12/2017 4:21 PM CDT History and Physical Date of Service: 11/12/2017 Primary Care Physician: Justen Gale MD [phone] SUBJECTIVE: Patient is a 62 y.o. female with a PMHx significant for . Presents to the ED with a chief complaintof generalized malaise. HPI: Patient presents the emergency department on November 12, 2017 from home with generalized malaise, nausea vomiting, shortness of breath. Patient was discharged from [facility] on November 06, 2017 after presenting with [...] Text SINUS RHYTHM WITH SHORT VA INTERVALBORDERLINE ECGINTERPRETATION BASED ON A DEFAULT AGE OF 41 YEARSPREVIOUS TRACIN11/02/2017 08.56 Ventricular Rate EKG/Min 94 /min P Wave Duration 109 ms QRS-Interval (MSEC) 81 ms VA-Interval (MSEC) 119 ms QT Interval 348 ms QTc 407 ms QTC Interval ms P [place] 12 deg QRS [place] 18 deg T [place] 54 deg Blood culture Blood Collection Time: [...] hyperglycemia, with long-term current use of insulin ([facility]) Active Problems: Restless legs syndrome Generalized weakness [...] embolism. 7. Chronic lumbar pain-continue home dose [place]. Her pain is currently exacerbated because her [...] and sliding scale insulin was ordered at [place]. Patient understands the value of prandial insulin [...] Per chart review, patient was admitted to [facility] from 11/01/2017-11/06/2017 after presenting with dyspnea. CT CHEST: No evidence of pulmonary embolus or aortic dissection. Chest XR: No acute cardiopulmonary process. Patient History Patient Active Problem List Diagnosis Date Noted ??? Uncontrolled type 2 diabetes mellitus with hyperglycemia, without long-term current use of insulin ([facility]) 11/06/2017 ??? Allergy to drug 11/06/2017 ??? Dysuria 10/26/2017 ??? Acute left-sided low back pain with left-sided sciatica 10/23/2017 ??? Type 2 diabetes mellitus with neurologic complication, without long-term current use of insulin([facility]) 10/23/2017 ??? Essential hypertension 10/23/2017 ??? Long-term [...] is normal. Nursing note and vitals reviewed. [facility] Labs Reviewed URINALYSIS AND REFLEX TO [...] formation. Source: [facility] [address].Last revised 05-04-2017 CBC WITH AUTO DIFFERENTIAL - [...] (278 lb) SpO2 100% BMI 52.53 kg/m?? [facility] ED Course as of Nov 12 457 Time: 11/12 304 Comment: CT Chest ABD/PEL: Chest normal. No acute intra-abdominal abnormality appreciated. By: Jovi Goel Time: 11/12 457 Comment: Discussed patient's case with Dr. Hawkins, [facility], who accepts the patient for admission. By: Jovi Goel Diabetes mellitus due to underlying condition with hyperosmolarity without coma, unspecified whether terminal superintendent insulin use ([facility]) Leukocytosis, unspecified type Jovi Goel scribed for Enmanuel Dubon MD in the doctor's presence. I electronically signed this note at 10:36 PM on 11/11/2017. I, Enmanuel Dubon MD have personally performed the services described in the documentation, as recorded by the scribe in my presence. Enmanuel Dubno MD 11/12/17 0651 * Jose E Flanagan [...] - DEVICE Final Result Performing Organization Address [facility] de Phone Number BCPUJA ARNOLD [address] [address] [facility] [place] [address] * POCT glucose (11/14/2017 7:56 AM CDT) Glucose, POC 159 70 - 199 mg/dL [facility] Blood specimen (specimen) 11/14/2017 7:56 AM CDT 11/14/2017 7:56 AM CDT [facility] - 11/14/2017 8:09 AM CDT Zhen Carter MD LAB POCT ORDERABLES - DEVICE Final Result Performing Organization Address [facility] Co de Phone Number MARY JANE ARNOLD [address] [address] [facility] [place] [address] * POCT glucose (11/14/2017 3:25 AM CDT) Glucose, POC 182 70 - 199 mg/dL [facility] Blood specimen (specimen) 11/14/2017 3:25 AM CDT 11/14/2017 3:25 AM CDT Narrative [facility] - 11/14/2017 3:40 AM CDT Zhen Carter MD LAB POCT ORDERABLES - DEVICE Final Result Performing Organization Address [facility] Co de Phone Number MARY JANE ARNOLD [address] [address] [facility] [place] [address] * (ABNORMAL) POCT glucose (11/13/2017 9:03 PM CDT) Glucose, POC 208(H) 70 - 199 mg/dL [facility] Blood specimen (specimen) 11/13/2017 9:03 PM CDT 11/13/2017 9:03 PM CDT Narrative MARY JANE - 11/13/2017 9:06 PM CDT Zhen Carter MD LAB POCT ORDERABLES - DEVICE Final Result Performing Organization Address [facility] de Phone Number BCPUJA ARNOLD [address] [address] [facility] [place] [address] * POCT glucose (11/13/2017 5:38 PM CDT) Glucose, POC 143 70 - 199 mg/dL [facility] Blood specimen (specimen) 11/13/2017 5:38 PM CDT 11/13/2017 5:38 PM CDT Narrative MARY JANE - 11/13/2017 5:39 PM CDT Zhen Carter MD LAB POCT ORDERABLES - DEVICE Final Result Performing Organization Address [facility] Co de Phone Number BCPUJA ARNOLD [address] [address] [facility] [place] [address] * POCT glucose (11/13/2017 12:38 PM CDT) Glucose, POC 129 70 - 199 mg/dL [facility] Blood specimen (specimen) 11/13/2017 12:38 PM CDT 11/13/2017 12:38 PM CDT Narrative MARY JANE - 11/13/2017 12:39 PM CDT Zhen Carter MD LAB POCT ORDERABLES - DEVICE Final Result Performing Organization Address [facility] Co de Phone Number MARY JANE [address] [address] Department [place] [address] * eGFR (11/13/2017 8:53 AM CDT) Pathologist [facility] eGFR 85 mL/min/1.7 3 m2 MARY JANE Comment: Interpretive Data Reference Interval Normal ?>/= 90 mL/min/1.73m2 Mildly decreased* ? 60 - 89 mL/min/1.73m2 Mildly to moderately decreased ?45 - 59 mL/min/1.73m2 Moderately to severely decreased ??30 - 44 mL/min/1.73m2 Severely decreased ?15 - 29 mL/min/1.73m2 Kidney Failure ?< 15 ??mL/min/1.73m2 *Relative to young adult level If -Colombian multiply value by 1.16. Estimated glomerular filtration [...] BLOOD ORDERABLES Final Res ult MARY JANE [address] Department [place] [address] * (ABNORMAL) Differential, auto (11/13/2017 8:53 AM CDT) Neutrophil abs 12.0(H) 1.7 - 6.5 K/cumm [facility] Imm gran abs 0.1 0.0 - 0.1 K/cumm [facility] Lymphocyte abs 2.3 0.8 - 3.3 K/cumm [facility] Monocyte abs 0.9(H) 0.2 - 0.8 K/cumm [facility] Eosinophil abs 0.2 0.0 - 0.5 K/cumm [facility] Basophil abs 0.0 0.0 - 0.1 K/cumm [facility] Neutrophil pct 77.4 % [facility] Comment: Interpretive Data Percent cell count reference ranges are not reported, since discordance with absolute values may lead to misinterpretation of CBC data. Current Interpretive Data was last revised on 2017. Imm gran pct 0.5 % [facility] Comment: Interpretive Data Percent cell count reference ranges are not reported, since discordance with absolute values may lead to misinterpretation of CBC data. Current Interpretive Data was last revised on 2017. Lymphocyte pct 14.6 % [facility] Comment: Interpretive Data Percent cell count reference ranges are not reported, since discordance with absolute values may lead to misinterpretation of CBC data. Current Interpretive Data was last revised on 2017. Monocyte pct 5.7 % [facility] Comment: Interpretive Data Percent cell count reference ranges are not reported, since discordance with absolute values may lead to misinterpretation of CBC data. Current Interpretive Data was last revised on 2017. Eosinophil pct 1.5 % [facility] Comment: Interpretive Data Percent cell count reference ranges are not reported, since discordance with absolute values may lead to misinterpretation of CBC data. Current Interpretive Data was last revised on 2017. Basophil pct 0.3 % [facility] Comment: Interpretive Data Percent cell count reference ranges are not reported, since discordance with absolute values may lead to misinterpretation of CBC data. Current Interpretive Data was last revised on 2017. Blood specimen (specimen) 11/13/2017 8:53 AM CDT 11/13/2017 9:17 AM CDT Narrative MARY JANE - 11/13/2017 9:25 AM CDT Yulisa Tilley SHEARING SHED WORKER LAB BLOOD ORDERABLES Final Res ult Performing Organization Address [facility] Co de Phone Number MARY JANE ARNOLD [address] [place] [address] * (ABNORMAL) CBC with auto differential (11/13/2017 8:53 AM CDT) WBC 15.6(H) 3.8 - 9.9 K/cumm [facility] Hgb 12.6 11.9 - 15.5 g/dL [facility] Hct 40.3 35.6 - 45.5 % [facility] Plt 302 150 - 400 K/cumm [facility] MPV 9.8 9.1 - 12.3 fL [facility] RBC 4.63 3.90 - 5.20 M/cumm [facility] MCV 87.0 81.3 - 96.4 fL [facility] MCH 27.2 27.1 - 33.3 pg [facility] MCHC 31.3(L) 32.3 - 35.7 g/dL [facility] RDW CV 15.1(H) 11.1 - 14.9 % [facility] RDW SD 47.8 35.7 - 48.1 fL [facility] NRBC abs 0.00 0.00 - 0.01 K/cumm [facility] Blood specimen (specimen) 11/13/2017 8:53 AM CDT 11/13/2017 9:17 AM CDT Narrative MARY JANE ARNOLD - 11/13/2017 9:25 AM CDT Yulisa Tilley SHEARING SHED WORKER LAB BLOOD ORDERABLES Final Res ult Performing Organization Address [facility]/ZIP Co de Phone Number MARY JANE ARNOLD [address] [place], [place] [id number] * (ABNORMAL) Basic metabolic panel (11/13/2017 8:53 AM CDT) Sodium 132(L) 135 - 145 mmol/L [facility] Potassium, pl 4.1 3.5 - 5.1 mmol/L [facility] Chloride 97(L) 100 - 114 mmol/L [facility] CO2 26 22 - 32 mmol/L [facility] Anion gap 13 8 - 16 mmol/L [facility] BUN 16 8 - 24 mg/dL [facility] Creatinine 0.76 0.60 - 1.30 mg/dL [facility] Glucose 331(H) 70 - 199 mg/dL [facility] Comment: Interpretive Data Fasting glucose >/= [...] 2017. Calcium 9.4 8.4 - 10.5 mg/dL [facility] Blood specimen (specimen) 11/13/2017 8:53 AM CDT 11/13/2017 9:17 AM CDT Narrative [facility] - 11/13/2017 9:34 AM CDT us Yulisa Tilley NP LAB BLOOD ORDERABLES Final Res ult [facility] [address] [address] Department [place] [address] * (ABNORMAL) Magnesium (11/13/2017 8:53 AM CDT) Magnesium 1.5(L) 1.8 - 2.6 mg/dL [facility] Blood specimen (specimen) 11/13/2017 8:53 AM CDT 11/13/2017 9:17 AM CDT Narrative [facility] - 11/13/2017 9:34 AM CDT Yulisa Tilley NP LAB BLOOD ORDERABLES Final Res ult Performing Organization Address [facility] Co de Phone Number MARY JANE ARNOLD [address] [address] [facility] [place] [address] * POCT glucose (11/13/2017 7:46 AM CDT) Glucose, POC 159 70 - 199 mg/dL [facility] Blood specimen (specimen) 11/13/2017 7:46 AM CDT 11/13/2017 7:46 AM CDT Narrative MARY JANE - 11/13/2017 7:47 AM CDT Zhen Carter MD LAB POCT ORDERABLES - DEVICE Final Result Performing Organization Address [facility] de Phone Number MARY JANE ARNOLD [address] [address] [place] [address] * POCT glucose (11/13/2017 2:26 AM CDT) Glucose, POC 169 70 - 199 mg/dL [facility] Blood specimen (specimen) 11/13/2017 2:26 AM CDT 11/13/2017 2:26 AM CDT Narrative MARY JANE - 11/13/2017 2:54 AM CDT Zhen Carter MD LAB POCT ORDERABLES - DEVICE Final Result Performing Organization Address [facility] Co de Phone Number MARY JANE ARNOLD [address] [address] [facility] [place] [address] * POCT glucose (11/12/2017 9:50 PM CDT) Glucose, POC 143 70 - 199 mg/dL [facility] Blood specimen (specimen) 11/12/2017 9:50 PM CDT 11/12/2017 9:50 PM CDT Narrative [facility] - 11/12/2017 9:58 PM CDT Zhen Carter MD LAB POCT ORDERABLES - DEVICE Final Result Performing Organization Address [facility] Co de Phone Number [facility] [address] [address] [facility] [place] [address] * POCT glucose (11/12/2017 8:10 PM CDT) Glucose, POC 105 70 - 199 mg/dL [facility] Blood specimen (specimen) 11/12/2017 8:10 PM CDT 11/12/2017 8:10 PM CDT Narrative [facility] - 11/12/2017 8:12 PM CDT William Laguerre MD LAB POCT ORDERABLES - DEVICE Final Result Performing Organization Address [facility] Co de Phone Number [facility] [address] [address] [facility] [place] [address] * eGFR (11/12/2017 6:16 PM CDT) eGFR 95 mL/min/1.7 3 m2 [facility] Comment: Interpretive Data Reference Interval Normal ?>/= 90 mL/min/1.73m2 Mildly decreased* ? 60 - 89 mL/min/1.73m2 Mildly to moderately decreased ?45 - 59 mL/min/1.73m2 Moderately to severely decreased ??30 - 44 mL/min/1.73m2 Severely decreased ?15 - 29 mL/min/1.73m2 Kidney Failure ?< 15 ??mL/min/1.73m2 *Relative to young adult level If -Colombian multiply value by 1.16. Estimated glomerular filtration [...] PM CDT 11/12/2017 6:22 PM CDT Narrative [facility] - 11/12/2017 6:42 PM CDT us Yulisa Tilley SHEARING SHED WORKER LAB BLOOD ORDERABLES Final Res ult MARY JANE [address] [address] Department [place] [address] * (ABNORMAL) Differential, auto (11/12/2017 6:16 PM CDT) Neutrophil abs 10.1(H) 1.7 - 6.5 K/cumm [facility] Imm gran abs 0.1 0.0 - 0.1 K/cumm [facility] Lymphocyte abs 2.6 0.8 - 3.3 K/cumm [facility] Monocyte abs 1.2(H) 0.2 - 0.8 K/cumm [facility] Eosinophil abs 0.3 0.0 - 0.5 K/cumm [facility] Basophil abs 0.0 0.0 - 0.1 K/cumm [facility] Neutrophil pct 70.4 % [facility] Comment: Interpretive Data Percent cell count reference ranges are not reported, since discordance with absolute values may lead to misinterpretation of CBC data. Current Interpretive Data was last revised on 2017. Imm gran pct 0.6 % [facility] Comment: Interpretive Data Percent cell count reference ranges are not reported, since discordance with absolute values may lead to misinterpretation of CBC data. Current Interpretive Data was last revised on 2017. Lymphocyte pct 18.3 % [facility] Comment: Interpretive Data Percent cell count reference ranges are not reported, since discordance with absolute values may lead to misinterpretation of CBC data. Current Interpretive Data was last revised on 2017. Monocyte pct 8.2 % [facility] Comment: Interpretive Data Percent cell count reference ranges are not reported, since discordance with absolute values may lead to misinterpretation of CBC data. Current Interpretive Data was last revised on 2017. Eosinophil pct 2.2 % [facility] Comment: Interpretive Data Percent cell count reference ranges are not reported, since discordance with absolute values may lead to misinterpretation of CBC data. Current Interpretive Data was last revised on 2017. Basophil pct 0.3 % [facility] Comment: Interpretive Data Percent cell count reference ranges are not reported, since discordance with absolute values may lead to misinterpretation of CBC data. Current Interpretive Data was last revised on 2017. Blood specimen (specimen) 11/12/2017 6:16 PM CDT 11/12/2017 6:[address] [facility] - 11/12/2017 6:29 PM CDT Yulisa Tilley SHEARING SHED WORKER LAB BLOOD ORDERABLES Final Res ult Performing Organization Address [facility] Co de Phone Number [facility] [address] [address] [place] [address] * Beta-hydroxybutyrate (11/12/2017 6:16 PM CDT) Pathologist [facility] Beta-Hydroxybut yrate 0.10 0.00 - 0.40 mmol/L [facility] Blood specimen (specimen) 11/12/2017 6:16 PM CDT 11/12/2017 6:[address] [facility] - 11/12/2017 9:26 PM CDT Yulisa Tilley SHEARING SHED WORKER LAB BLOOD ORDERABLES Final Res ult MARY JANE [address] [address] [place] [address] * (ABNORMAL) CBC with auto differential (11/12/2017 6:16 PM CDT) WBC 14.4(H) 3.8 - 9.9 K/cumm [facility] Hgb 12.4 11.9 - 15.5 g/dL [facility] Hct 39.2 35.6 - 45.5 % [facility] Plt 290 150 - 400 K/cumm [facility] MPV 9.6 9.1 - 12.3 fL [facility] RBC 4.46 3.90 - 5.20 M/cumm [facility] MCV 87.9 81.3 - 96.4 fL [facility] MCH 27.8 27.1 - 33.3 pg [facility] MCHC 31.6(L) 32.3 - 35.7 g/dL [facility] RDW CV 15.2(H) 11.1 - 14.9 % [facility] RDW SD 49.1(H) 35.7 - 48.1 fL [facility] NRBC abs 0.00 0.00 - 0.01 K/cumm [facility] Blood specimen (specimen) 11/12/2017 6:16 PM CDT 11/12/2017 6:22 PM CDT Narrative [facility] - 11/12/2017 6:29 PM CDT Yulisa Tilley SHEARING SHED WORKER LAB BLOOD ORDERABLES Final Res ult Performing Organization Address [facility] de Phone Number MARY JANE ARNOLD [address] [place] [address] * (ABNORMAL) Magnesium (11/12/2017 6:16 PM CDT) Magnesium 1.6(L) 1.8 - 2.6 mg/dL [facility] Blood specimen (specimen) 11/12/2017 6:16 PM CDT 11/12/2017 6:22 PM CDT Narrative [facility] - 11/12/2017 6:42 PM CDT Yulisa Tilley SHEARING SHED WORKER LAB BLOOD ORDERABLES Final Res ult MARY JANE ARNOLD [address] [address] [facility] [place] [address] * (ABNORMAL) Comprehensive metabolic panel [...] 11/12/2017 6:42 PM CDT us Yulisa Tilley SHEARING SHED WORKER LAB BLOOD ORDERABLES Final Res ult [facility] [address] Department [place] [address] * (ABNORMAL) POCT glucose (11/12/2017 5:23 PM CDT) Glucose, POC 226(H) 70 - 199 mg/dL [facility] Blood specimen (specimen) 11/12/2017 5:23 PM CDT 11/12/2017 5:23 PM CDT Narrative [facility] - 11/12/2017 5:40 PM CDT William Laguerer MD LAB POCT ORDERABLES - DEVICE Final Result Performing Organization Address [facility] Co de Phone Number [facility] [address] [address] [place] [address] * (ABNORMAL) POCT glucose (11/12/2017 12:28 PM CDT) Glucose, POC 211(H) 70 - 199 mg/dL [facility] Blood specimen (specimen) 11/12/2017 12:28 PM CDT 11/12/2017 12:28 PM CDT Narrative [facility] - 11/12/2017 12:34 PM CDT Leoncio Hawkins MD LAB POCT ORDERABLES - DEVICE Fi nal Result Performing Organization Address [facility] de Phone Number [facility] [address] [address] [place] [address] * (ABNORMAL) POCT glucose (11/12/2017 7:57 AM CDT) Glucose, POC 205(H) 70 - 199 mg/dL [facility] Blood specimen (specimen) 11/12/2017 7:57 AM CDT 11/12/2017 7:57 AM CDT Narrative [facility] - 11/12/2017 7:58 AM CDT Notinfile Unknown LAB POCT ORDERABLES - DEVICE F inal Result Performing Organization Address [facility] [place] [address] [address] Department [place] [address] * CT Chest PE Abdomen Pelvis W [...] WBC, ur 0-5 0 - 5 /HPF [facility] RBC, ur 0-5 0 - 5 /HPF [facility] Mucous, ur Present(A) [facility] Urine, bladder 11/11/2017 11 :15 PM CDT 11/11/2017 11:19 PM CDT Narrative MARY JANE - 11/11/2017 11:33 PM CDT us Enmanuel Dubon MD LAB URINE ORDERABLES Final Result MARY JANE [address] [address] Department [place] [address] * Blood culture Blood (11/11/2017 11:15 PM CDT) Report Final Report: No growth MARY JANE Comment:Testing performed by : [facility], [address], [place]., [address] Blood specimen (specimen) 11/11/2017 11:15 PM CDT [...] organism identification may be performed using the X-[employer]ig[employer] Nanosphere Gram Positive Blood Culture Assay. ??The Nanosphere assay detects microbial DNA in positive blood culture broth via hybridization of target DNA to capture oligonucleotides on a microarray. ??This assay has been cleared by the [place] Food and Drug Administration and its performance characteristics have been verified by the [facility]. Current Interpretive Data was last revised on 2013. us Enmanuel Dubon MD LAB MICROBIOLOGY - GENERAL ORDERABLES Final Result [facility] [address] [address] Department [place] [address] * (ABNORMAL) Urinalysis reflex to microscopic and [...] formation. Source: [facility] [address]. Last revised 05-04-2017 Enmanuel Dubon MD LAB MICROBIOLOGY - GENERAL ORDERABLES Final Result Performing Organization Address [facility] Co de Phone Number MARY JANE ARNOLD [address] [place] [address] * Blood culture Blood (11/11/2017 11:00 PM CDT) Report Final Report: No growth MARY JANE ARNOLD Comment:Testing performed by : [facility], [address] [place]., [address] Blood specimen (specimen) 11/11/2017 11:00 PM CDT [...] organism identification may be performed using the iJento Nanosphere Gram Positive Blood Culture Assay. ??The Nanosphere assay detects microbial DNA in positive blood culture broth via hybridization of target DNA to capture oligonucleotides on a microarray. ??This assay has been cleared by the [place] Food and Drug Administration and its performance characteristics have been verified by the [facility]. Current Interpretive Data was last revised on 2013. Enmanuel Dubon MD LAB MICROBIOLOGY - GENERAL ORDERABLES Final Result Performing Organization Address City/[facility]/ZIP Co de Phone Number BCPUJA ARNOLD [address] [place] [address] * ECG 12 lead (11/11/2017 9:47 PM CDT) Patient age 62 years [facility] Interpretation Text SINUS RHYTHM WITH SHORT VA INTERVALBORDERLINE ECGINTERPRETATION BASED ON A DEFAULT AGE OF 41 YEARSPREVIOUS TRACIN11/02/2017 08.56 [facility] Comment:Physician Interprete r Dr. Suleiman Hdz M.D. Ventricular Rate EKG/Min 94 /min [facility] P Wave Duration 109 ms [facility] QRS-Interval (MSEC) 81 ms [facility] VA-Interval (MSEC) 119 ms [facility] QT Interval 348 ms [facility] QTc 407 ms [facility] QTC Interval ms [facility] P [place] 12 deg [facility] QRS [place] 18 deg [facility] T [place] 54 deg [facility] 11/11/2017 9:47 PM CDT us Enmanuel Dubon MD ECG ORDERABLES Final Resul t Performing Organization Address [facility]/ZIP Co de Phone Number [facility] * Lipase (11/11/2017 9:40 PM CDT) Lipase 44 20 - 50 Units/L [facility] Blood specimen (specimen) 11/11/2017 9:40 PM CDT 11/11/2017 10:56 PM CDT Narrative [facility] - 11/11/2017 11:14 PM CDT us Enmanuel Dubon MD LAB BLOOD ORDERABLES Final Result Performing Organization Address [facility] Co de Phone Number MARY JANE ARNOLD [address] [place] [address] * Amylase (11/11/2017 9:40 PM CDT) Amylase 61 35 - 100 Units/L [facility] Blood specimen (specimen) 11/11/2017 9:40 PM CDT 11/11/2017 10:56 PM CDT Narrative [facility] - 11/11/2017 11:14 PM CDT us Enmanuel Dubon MD LAB BLOOD ORDERABLES Final Result Performing Organization Address [facility] Co de Phone Number MARY JANE ARNOLD [address] [address] Department [place] [address] * eGFR (11/11/2017 9:40 PM CDT) Pathologist [facility] eGFR 80 mL/min/1.7 3 m2 [facility] Comment: Interpretive Data Reference Interval Normal ?>/= 90 mL/min/1.73m2 Mildly decreased* ? 60 - 89 mL/min/1.73m2 Mildly to moderately decreased ?45 - 59 mL/min/1.73m2 Moderately to severely decreased ??30 - 44 mL/min/1.73m2 Severely decreased ?15 - 29 mL/min/1.73m2 Kidney Failure ?< 15 ??mL/min/1.73m2 *Relative to young adult level If -Colombian multiply value by 1.16. Estimated glomerular filtration [...] PM CDT 11/11/2017 9:54 PM CDT Narrative [facility] - 11/11/2017 10:15 PM CDT us Devonte Cruz MD LAB BLOOD ORDERABLES F inal Result [facility] [address] Department [place] [address] * (ABNORMAL) Differential, auto (11/11/2017 9:40 PM CDT) Neutrophil abs 13.8(H) 1.7 - 6.5 K/cumm [facility] Imm gran abs 0.1 0.0 - 0.1 K/cumm [facility] Lymphocyte abs 3.0 0.8 - 3.3 K/cumm [facility] Monocyte abs 1.5(H) 0.2 - 0.8 K/cumm [facility] Eosinophil abs 0.3 0.0 - 0.5 K/cumm [facility] Basophil abs 0.0 0.0 - 0.1 K/cumm [facility] Neutrophil pct 73.7 % [facility] Comment: Interpretive Data Percent cell count reference ranges are not reported, since discordance with absolute values may lead to misinterpretation of CBC data. Current Interpretive Data was last revised on 2017. Imm gran pct 0.7 % [facility] Comment: Interpretive Data Percent cell count reference ranges are not reported, since discordance with absolute values may lead to misinterpretation of CBC data. Current Interpretive Data was last revised on 2017. Lymphocyte pct 16.2 % [facility] Comment: Interpretive Data Percent cell count reference ranges are not reported, since discordance with absolute values may lead to misinterpretation of CBC data. Current Interpretive Data was last revised on 2017. Monocyte pct 7.8 % [facility] Comment: Interpretive Data Percent cell count reference ranges are not reported, since discordance with absolute values may lead to misinterpretation of CBC data. Current Interpretive Data was last revised on 2017. Eosinophil pct 1.4 % [facility] Comment: Interpretive Data Percent cell count reference ranges are not reported, since discordance with absolute values may lead to misinterpretation of CBC data. Current Interpretive Data was last revised on 2017. Basophil pct 0.2 % [facility] Comment: Interpretive Data Percent cell count reference ranges are not reported, since discordance with absolute values may lead to misinterpretation of CBC data. Current Interpretive Data was last revised on 2017. Blood specimen (specimen) 11/11/2017 9:40 PM CDT 11/11/2017 9:[address] [facility] - 11/11/2017 10:08 PM CDT Enmanuel Dubon MD LAB BLOOD ORDERABLES Final Result Performing Organization Address [facility]/ZIP Co de Phone Number [facility] [address] [facility] [place] [address] * Troponin I (11/11/2017 9:40 PM CDT) Pathologist [facility] Troponin I <0.03 0.00 - 0.14 ng/mL [facility] Comment: Interpretive Data Normal: ? 0.00 - 0.14 ng/mL Indeterminate: ?0.15 - 0.50 ng/mL NH / Cardiac Muscle Damage: ? >0.50 ng/mL Current interpretive data was last reviewed 2015 Blood specimen (specimen) 11/11/2017 9:40 PM CDT 11/11/2017 9:54 PM CDT Narrative [facility] 11/11/2017 10:21 PM CDT Enmanuel Dubon MD LAB BLOOD ORDERABLES Final Result Performing Organization Address [facility] Co de Phone Number [facility] [address] [address] [facility] [place] [address] * B-type natriuretic peptide (11/11/2017 9:40 PM CDT) [facility] B-Type Natriuretic Peptide (BNP) 22 0 - 100 pg/mL [facility] Blood specimen (specimen) 11/11/2017 9:40 PM CDT 11/11/2017 9:54 PM CDT Narrative [facility] 11/11/2017 10:57 PM CDT Enmanuel Dubon MD LAB BLOOD ORDERABLES Final Result Performing Organization Address [facility]/ZIP Co de Phone Number [facility] [address] [place], [place] [id number] * (ABNORMAL) Comprehensive metabolic panel (11/11/2017 9:40 [...] Dubon MD LAB BLOOD ORDERABLES Final Result [facility] [address] [address] Department [place] [address] * (ABNORMAL) CBC with auto differential (11/11/2017 9:40 PM CDT) WBC 18.7(H) 3.8 - 9.9 K/cumm [facility] Hgb 12.4 11.9 - 15.5 g/dL [facility] Hct 38.8 35.6 - 45.5 % [facility] Plt 316 150 - 400 K/cumm [facility] MPV 9.7 9.1 - 12.3 fL [facility] RBC 4.47 3.90 - 5.20 M/cumm [facility] MCV 86.8 81.3 - 96.4 fL [facility] MCH 27.7 27.1 - 33.3 pg [facility] MCHC 32.0(L) 32.3 - 35.7 g/dL [facility] RDW CV 15.2(H) 11.1 - 14.9 % [facility] RDW SD 48.5(H) 35.7 - 48.1 fL [facility] NRBC abs 0.00 0.00 - 0.01 K/cumm [facility] Blood specimen (specimen) 11/11/2017 9:40 PM CDT 11/11/2017 9:54 PM CDT Narrative [facility] - 11/11/2017 10:08 PM CDT us Enmanuel Dubon MD LAB BLOOD ORDERABLES Final Result [facility] [address] [facility] Department [place] [address] * (ABNORMAL) POCT glucose (11/11/2017 9:02 PM CDT) Glucose, POC 299(H) 70 - 199 mg/dL [facility] Glucose comment 1 RN/MD Notified [facility] Blood specimen (specimen) 11/11/2017 9:02 PM CDT 11/11/2017 9:02 PM CDT Narrative [facility] - 11/11/2017 9:16 PM CDT us Notinfile Unknown LAB POCT ORDERABLES - DEVICE F inal Result MARY JANE [address] [address] Department [place] [address] documented in this encounter Visit Diagnoses Diagnosis Uncontrolled type 2 diabetes mellitus with hyperglycemia, with long-term current use of insulin (HCC)- Primary Diabetes mellitus due to underlying condition with hyperosmolarity without coma, unspecified whether terminal superintendent insulin use (HCC) Leukocytosis, unspecified type Restless [...] Mellitus 2151 (Not Given - Provider: Kalen Frederick RN [...] at 2100 2153 (Given - Provider: Kalen Frederick, NURIS) 2059 (Given - Provider: Lachelle Fletcher, [...] - Provider: Rosa Nava RN)1651 ([facility] - Provider: Rosa Nava RN) ioversol (OPTIRAY [...] 11/12/2017 documented in this encounter Care Teams Buckle Coverer Relationship Specialty Start Date End Date Justen Gale MD [address] [address] PCP - General 10/09/17 Liu Jerez MD Consulting Physician Gastroenterology 07/28/17 [place] [address] [facility] [address] [place] [address] Consulting Physician Pulmonary Disease 08/03/17 Khris Arthur MD [address] [place] [address] Medical Oncologist/Director Of Events Medical Oncology 10/23/17 [place] [address] [facility] [address] [place] [address] Surgeon Orthopedic Surgery 10/23/17 [place] [address] [facility] [address] [place] [address] Consulting Physician Pain Management 10/23/17 documented as of this encounter
--- OUTSIDE RECORDS SUMMARY | 2024-04-26 09:28 | XMS_ITS | Encounter Summary ---
Author Organization [facility] Healthcare Address [address] [place] [address] Care Team Providers Care Wastewater Project Engineer Name Role Phone Liu Jerez MD Unavailable [phone] Albert Corbin MD Unavailable [phone] Justen Gale MD Primary Care Provider Khris Arthur MD Unavailable [phone] Ko Melendez MD Unavailable [phone] John Paul Moyer MD Unavailable Reason for Visit * Reason Comments Back Pain Encounter Details Date Type Department Care Team (Late st Contact Info) Description 11/19/2017 10:25 PM CDT - 11/20/2017 2:30 AM CDT Emergency [facility] Emergency Department [address] [place] [address] [place] [address] [facility] [address] [place] [address] Chronic left-sided low back pain [...] on file 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 * Sciatica (Guinean) documented in this encounter Medications at Time [...] by Dr. Melendez and was referred to industrial painter Dr. Moyer. Pt reports receiving an [...] states that she has been taking her [place] every 6 hours without any relief. Pt states that she is unable to get the rest of her back injections until she sees her felling machine operator. Patient History Patient Active Problem List Diagnosis Date Noted ??? Anxiety and depression 11/12/2017 ??? Uncontrolled type 2 diabetes mellitus with hyperglycemia, with long-term current use of insulin([facility]) 11/06/2017 ??? Allergy to drug 11/06/2017 ??? Dysuria 10/26/2017 ??? Acute left-sided low back pain with left-sided sciatica 10/23/2017 ??? Type 2 diabetes mellitus with neurologic complication, without long-term current use of insulin([facility]) 10/23/2017 ??? Essential hypertension 10/23/2017 ??? Long-term current use of opiate analgesic 10/23/2017 ??? Lumbosacral spondylosis without myelopathy 10/23/2017 ??? Radiculopathy, lumbosacral region 10/23/2017 ??? Spinal stenosis of lumbar region without neurogenic claudication 10/23/2017 ??? 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 ??? Type 2 diabetes mellitus with hyperglycemia, without long-term current use of insulin ([facility]) ??? Constipation ??? Malignant neoplasm of upper-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 ([facility]) 10/17/2017 ??? Cancer of overlapping sites of left female breast ([facility]) 10/13/2017 ??? Chronic anticoagulation ??? [...] is normal. Nursing note and vitals reviewed. [facility] Vitals: 11/19/172213 BP: 120/66 Pulse: 87 Resp: 20 Temp: 36.6 ??C (97.9 ??F) SpO2: 100% Labs Reviewed POCT GLUCOSE DEVICE POCT GLUCOSE DEVICE Result Value Glucose, POC, bld 178 Narrative: [facility] Number of Diagnoses or Management Options Chronic left-sided low back pain with sciatica, sciatica laterality unspecified: Diagnosis management comments: 1:52 AM 11/20/2017 ER nurse reports pt is feeling better at this time. Pt is stable to be discharged home to f/u with her industrial painter. This note was prepared by Bria [...] DEVICE F inal Result MARY JANE ARNOLD [address] [address] Department [place] [address] documented in this encounter Visit Diagnoses Diagnosis [...] 11/19/2017 documented in this encounter Care Teams Wastewater Project Engineer Relationship Specialty Start Date End Date Justen Gale MD 2 [facility] [address] [place] [address] PCP - General 10/09/17 Liu Jerez MD Consulting Physician Gastroenterology 07/28/17 [place] [address] [address] [facility] [address] [place] [address] Consulting Physician Pulmonary Disease 08/03/17 Khris Arthur MD [address] [facility] [address] [place] [address] Medical Oncologist/Associate Faculty Medical Oncology 10/23/17 [place] [address] [address] [facility] [address] [place] [address] Surgeon Orthopedic Surgery 10/23/17 [place] [address] [address] Consulting Physician Pain Management 10/23/17 documented as of this encounter
--- OUTSIDE RECORDS SUMMARY | 2024-04-26 09:28 | XMS_ITS | Encounter Summary ---
Author Organization [facility] Healthcare Address [address] [place] [address] Care Team Providers Care Cafe Lead Name Role Phone Liu Jerez MD Unavailable Albert Corbin MD Unavailable Justen Gale MD Primary Care Provider Khris Arthur MD Unavailable [phone] Ko Melendez MD Unavailable John Paul Moyer MD Unavailable Reason for Visit * Reason Comments Fall 1630 I found her o n the floor with her face up aganist the wall. Encounter Details Date Type Department Care Team (Late st Contact Info) Description 11/27/2017 9:20 PM CDT - 11/28/2017 1:52 AM CDT Emergency 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 Allergy to drug 11/06/2017 ??? Dysuria 10/26/2017 ??? Acute left-sided low back pain with left-sided sciatica 10/23/2017 ??? Type 2 diabetes mellitus with neurologic complication, without long-term current use of insulin([facility]/HCC) 10/23/2017 ??? Essential hypertension 10/23/2017 ??? Long-term current use of opiate analgesic 10/23/2017 ??? Lumbosacral spondylosis without myelopathy 10/23/2017 ??? Radiculopathy, lumbosacral region 10/23/2017 ??? Spinal stenosis of lumbar region without neurogenic claudication 10/23/2017 ??? 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 ??? Type 2 diabetes mellitus with hyperglycemia, without long-term current use of insulin ([facility]/HCC) ??? Constipation ??? 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 Cancer of overlapping sites of left female breast (CMS/[facility]) 10/13/2017 ??? Chronic anticoagulation ??? [...] goiter. Results transmitted to the ER by [facility] at 12:51 AM Electronically signed by: Fabienne [...] goiter. Results transmitted to the ER by [facility] at 12:51 AM Electronically signed by: Fabienne Gaspar M.D. us Jose Nguyễn MD IMG CT PROCEDURES Final Result * eGFR (11/27/2017 10:20 PM CDT) [facility] eGFR 86 mL/min/1.7 3 m2 MARY JANE ARNOLD Comment: Interpretive Data Reference Interval Normal ?>/= 90 mL/min/1.73m2 Mildly decreased* ? 60 - 89 mL/min/1.73m2 Mildly to moderately decreased ?45 - 59 mL/min/1.73m2 Moderately to severely decreased ??30 - 44 mL/min/1.73m2 Severely decreased ?15 - 29 mL/min/1.73m2 Kidney Failure ?< 15 ??mL/min/1.73m2 *Relative to young adult level If -Bruneian multiply value by 1.16. Estimated glomerular filtration [...] PM CDT 11/27/2017 11:04 PM CDT Narrative [facility] - 11/27/2017 11:31 PM CDT us Jose Nguyễn MD LAB BLOOD ORDERABLES Final Res ult MARY JANE [address] [address] Department [place] [address] * (ABNORMAL) Differential, auto (11/27/2017 10:20 PM CDT) Neutrophil abs 8.3(H) 1.7 - 6.5 K/cumm [facility] Imm gran abs 0.1 0.0 - 0.1 K/cumm [facility] Lymphocyte abs 2.6 0.8 - 3.3 K/cumm [facility] Monocyte abs 0.9(H) 0.2 - 0.8 K/cumm [facility] Eosinophil abs 0.4 0.0 - 0.5 K/cumm [facility] Basophil abs 0.0 0.0 - 0.1 K/cumm [facility] Neutrophil pct 67.4 % [facility] Comment: Interpretive Data Percent cell count reference ranges are not reported, since discordance with absolute values may lead to misinterpretation of CBC data. Current Interpretive Data was last revised on 2017. Imm gran pct 0.5 % [facility] Comment: Interpretive Data Percent cell count reference ranges are not reported, since discordance with absolute values may lead to misinterpretation of CBC data. Current Interpretive Data was last revised on 2017. Lymphocyte pct 21.4 % [facility] Comment: Interpretive Data Percent [...] PM CDT 11/27/2017 11:04 PM CDT Narrative [facility] - 11/27/2017 11:14 PM CDT us Jose Nguyễn MD LAB BLOOD ORDERABLES Final Res ult [facility] [address] [address] Department [place] [address] * Comprehensive metabolic panel (11/27/2017 10:20 PM CDT) Sodium 139 135 - 145 mmol/L [facility] Potassium, pl 4.0 3.5 - 5.1 mmol/L [facility] Chloride 102 100 - 114 mmol/L [facility] CO2 26 22 - 32 mmol/L [facility] Anion gap 15 8 - 16 mmol/L [facility] BUN 15 8 - 24 mg/dL [facility] Creatinine 0.75 0.60 - 1.30 mg/dL [facility] Glucose 103 70 - 199 mg/dL [facility] Comment: Interpretive Data Fasting [...] MD LAB BLOOD ORDERABLES Final Res ult [facility] [address] [address] Department [place] [address] * (ABNORMAL) CBC with auto [...] RDW SD 49.2(H) 35.7 - 48.1 fL [facility] NRBC abs 0.00 0.00 - 0.01 K/cumm MARY JANE Blood specimen (specimen) 11/27/2017 10:20 PM CDT 11/27/2017 11:04 PM CDT Narrative MARY JANE ARNOLD - 11/27/2017 11:14 PM CDT us Jose Nguyễn MD LAB BLOOD ORDERABLES Final Res ult MARY JANE [address] [address] Department [place] [address] * CT Head WO Contrast (11/27/2017 9:54 [...] 8:18 PM CDT) Patient age 62 years [facility] Interpretation Text SINUS RHYTHMNONSPECIFIC T-WAVE ABNORMALITYBORDERLINE ECGPREVIOUS TRACIN11/11/2017 21.47No significant changes noted [facility] Comment:Physician Interprete r Dr. Opal Koo M.D. Ventricular Rate EKG/Min 84 /min [facility] P Wave Duration 108 ms [facility] QRS-Interval (MSEC) 92 ms [facility] AK-Interval (MSEC) 129 ms [facility] QT Interval 356 ms [facility] QTc 398 ms [facility] QTC Interval ms [facility] P Mullins 7 deg [facility] QRS Mullins -1 deg [facility] T Mullins 42 deg [facility] 11/27/2017 8:18 PM CDT Jose Nguyễn MD ECG ORDERABLES Final Result [facility] documented in this encounter Visit [...] RN) documented in this encounter Care Teams Cafe Lead Relationship Specialty Start Date End Date Justen Gale MD [address] [address] PCP - General 10/09/17 Liu Jerez MD Consulting Physician Gastroenterology 07/28/17 [place] [address] [id number] [place] [address] Consulting Physician Pulmonary Disease 08/03/17 Khris Arthur MD [address] [facility] [address] [place] [address] Medical Oncologist/Grain Commodity Manager Medical Oncology 10/23/17 [place] [address] [address] [address] Surgeon Orthopedic Surgery 10/23/17 [place] [address] [address] [address] Consulting Physician Pain Management 10/23/17 documented as of this encounter
--- OUTSIDE RECORDS SUMMARY | 2024-04-26 09:29 | XMS_ITS | Encounter Summary ---
Author Organization 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 Gender Identity Not on file Sexual [...] on filedocumented in this encounter Care Teams School Photographer Relationship Specialty Start Date End Date Justen Gale MD 2 [facility] [address] [place] [address] PCP - General 10/09/17 Liu Jerez MD Consulting Physician Gastroenterology 07/28/17 [place] [address] [facility] [address] [place] [address] Consulting Physician Pulmonary Disease 08/03/17 Khris Arthur MD [address] [facility] [address] [place] [address] Medical Oncologist/Radarman Medical Oncology 10/23/17 [place] [address] [facility] [address] [place] [address] Surgeon Orthopedic Surgery 10/23/17 [place] [address] [address] Consulting Physician Pain Management 10/23/17 documented as of this encounter
--- OUTSIDE RECORDS SUMMARY | 2024-04-26 09:29 | XMS_ITS | Encounter Summary ---
Author Organization [facility] Healthcare Address [address] [place] [address] Care Team Providers Care Respiratory Care Assistant Name Role Phone Liu Jerez MD Unavailable Albert Corbin MD Unavailable [phone] Justen Gale MD Primary Care Provider Khris Arthur MD Unavailable [phone] Ko Melendez MD Unavailable John Paul Moyer MD Unavailable Encounter Details Date Type Department Care Team (Latest Contact Info) Description 10/27/2017 9:23 AM CDT - 10/27/2017 11:59 PM CDT Hospital Encounter [facility] [address] [place] [address] Discharge Disposition: Discharge to home [...] on file 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 Gender Identity Not on file Sexual [...] on filedocumented in this encounter Care Teams Respiratory Care Assistant Relationship Specialty Start Date End Date Justen Gale MD 2 [facility] [address] [place] [address] PCP - General 10/09/17 Liu Jerez MD Consulting Physician Gastroenterology 07/28/17 [place] [address] [facility] [address] [place] [address] Consulting Physician Pulmonary Disease 08/03/17 Khris Arthur MD [address] [facility] [address] [place] [address] Medical Oncologist/Real Estate Valuer Medical Oncology 10/23/17 [place] [address] [facility] [address] [place] [address] Surgeon Orthopedic Surgery 10/23/17 [place] [address] [address] Consulting Physician Pain Management 10/23/17 documented as of this encounter
--- OUTSIDE RECORDS SUMMARY | 2024-04-26 09:29 | XMS_ITS | Encounter Summary ---
Author Organization [facility] Healthcare Address [address] [place] [address] Care Team Providers Care Carbide Die Maker Name Role Phone Liu Jerez MD Unavailable [phone] Albert Corbin MD Unavailable Justen Gale MD Primary Care Provider Khris Arthur MD Unavailable [phone] oK Melendez MD Unavailable John Paul Moyer MD Unavailable Encounter Details Date Type Department Care Team (Latest Contact Info) Description 10/27/2017 10:39 AM CDT - 10/27/2017 11:59 PM CDT Hospital Encounter [facility] Radiology [address] [facility] [place] [address] [place] [address] [address] [place] [address] Discharge Disposition: Discharge to home or self care Social History Tobacco Use Types Packs/Day Years Used Date Smoking Tobacco: Former Smokeless Tobacco: Never Comments:remote tobacco use Alcohol Use Standard Drinks/Week Comments No 0 (1 standard drink = 0.6 oz pur e alcohol) Comments No Sex and Gender Information Value Date Recorded Sex Assigned at Not on file 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 Gender Identity Not on file Sexual Orientation [...] on filedocumented in this encounter Care Teams Carbide Die Maker Relationship Specialty Start Date End Date Justen Gale MD 2 [facility] [address] [place] [address] PCP - General 10/09/17 Liu Jerez MD Consulting Physician Gastroenterology 07/28/17 [place] [address] [address] [facility] [address] [place] [address] Consulting Physician Pulmonary Disease 08/03/17 Khris Arthur MD [address] [facility] [address] [place] [address] Medical Oncologist/Animal Shelter Clerk Medical Oncology 10/23/17 [place] [address] [facility] [address] [place] [address] Surgeon Orthopedic Surgery 10/23/17 [place] [address] [facility] [address] [place] [address] Consulting Physician Pain Management 10/23/17 documented as of this encounter
--- OUTSIDE RECORDS SUMMARY | 2024-04-26 09:29 | XMS_ITS | Encounter Summary ---
Author Organization [facility] Healthcare Address [address] [place] [address] Care Team Providers Care Shopper Marketing Manager Name Role Phone Liu Jerez MD Unavailable [phone] Albert Corbin MD Unavailable Justen Gale MD Primary Care Provider [phone] Khris Arthur MD Unavailable [phone] Ko Melendez MD Unavailable [phone] John Paul Moyer MD Unavailable Encounter Details Date Type Department Care Team (Latest Contact Info) Description 11/01/2017 7:27 PM CDT - 11/01/2017 11:59 PM CDT Hospital Encounter [facility] Diagnostic Imaging [address] [place] [address] Discharge Disposition: Discharge to home [...] on file 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 Gender Identity Not on file Sexual [...] on filedocumented in this encounter Care Teams Shopper Marketing Manager Relationship Specialty Start Date End Date Justen Gale MD 2 [facility] [address] [place] [address] PCP - General 10/09/17 Liu Jerez MD Consulting Physician Gastroenterology 07/28/17 [place] [address] [address] [facility] [address] [place] [address] Consulting Physician Pulmonary Disease 08/03/17 Khris Arthur MD [address] [facility] [address] [place], [place] [id number] Medical Oncologist/Experimental Physicist Medical Oncology 10/23/17 [place] [address] [address] [facility] [address] [place] [address] Surgeon Orthopedic Surgery 10/23/17 [place] [address] [address] Consulting Physician Pain Management 10/23/17 documented as of this encounter
--- OUTSIDE RECORDS SUMMARY | 2024-04-26 09:29 | XMS_ITS | Encounter Summary ---
Author Organization [facility] Address [address] [place] [address] Care Team Providers Care President & Ceo Name Role Phone Liu Jerez MD Unavailable [phone] Albert Corbin MD Unavailable [phone] Justen Gale MD Primary Care Provider Khris Arthur MD Unavailable [phone] Ko Melendez MD Unavailable [phone] John Paul Moyer MD Unavailable Reason for Visit * Reason Comments Hyperglycemia Weakness - Generalized Shortness of Breath Encounter Details Date Type Department Care Team (Latest Contact Info) Description 11/01/2017 5:48 PM CDT - 11/06/2017 4:05 PM CDT Hospital Encounter [facility] [address] [place] [address] [place] [address] [facility] [address] [place] [address] [place] [address] [facility] [address] [place] [address] [place] [address] [facility] [address] [place], [place] [id number] [place] [address] [facility] [address] [place], [place] [id number] COPD exacerbation (CMS/HCC) (Primary Dx); Chest pain, [...] on file 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 [...] Duration 111 ms QRS-Interval (MSEC) 80 ms NC-Interval (MSEC) 134 ms QT Interval 350 ms QTc 399 ms QTC Interval ms P Lincoln 59 deg QRS Lincoln 20 deg T Lincoln 52 deg CBC with auto differential Collection [...] Duration 107 ms QRS-Interval (MSEC) 86 ms NC-Interval (MSEC) 125 ms QT Interval 352 ms QTc 429 ms QTC Interval ms P Lincoln 46 deg QRS Lincoln 19 deg T Lincoln 67 deg POCT glucose Collection Time: 11/01/17 [...] years Interpretation Text SINUS RHYTHM WITH SHORT NC INTERVALBORDERLINE ECGPREVIOUS TRACIN11/01/2017 19.42Compared to prior ECG Sinus tachycardia is no longer present. Ventricular Rate EKG/Min 73 /min P Wave Duration 103 ms QRS-Interval (MSEC) 80 ms NC-Interval (MSEC) 116 ms QT Interval 367 ms QTc 389 ms QTC Interval ms P Lincoln -6 deg QRS Lincoln 21 deg T Lincoln 36 deg POCT glucose Collection Time: 11/02/17 [...] 11/02/2017 Primary Care Physician: Justen Gale MD [phone] SUBJECTIVE: Patient is a 62 y.o. female [...] %) nebulizer solution 5 mg 5 mg [id number] PRN (RT) Enmanuel Dubon MD ??? albuterol [...] g 17 g oral Daily Britney Torbert, APPLICATION DEFENSE MANAGER ??? prochlorperazine (COMPAZINE) injection 5 mg 5 [...] Duration 111 ms QRS-Interval (MSEC) 80 ms NC-Interval (MSEC) 134 ms QT Interval 350 ms QTc 399 ms QTC Interval ms P Lincoln 59 deg QRS Lincoln 20 deg T Lincoln 52 deg CBC with auto differential Collection [...] Duration 107 ms QRS-Interval (MSEC) 86 ms NC-Interval (MSEC) 125 ms QT Interval 352 ms QTc 429 ms QTC Interval ms P Lincoln 46 deg QRS Lincoln 19 deg T Lincoln 67 deg POCT glucose Collection Time: 11/01/17 [...] years Interpretation Text SINUS RHYTHM WITH SHORT NC INTERVALBORDERLINE ECGPREVIOUS TRACIN11/01/2017 19.42Compared to prior ECG Sinus tachycardia is no longer present. Ventricular Rate EKG/Min 73 /min P Wave Duration 103 ms QRS-Interval (MSEC) 80 ms NC-Interval (MSEC) 116 ms QT Interval 367 ms QTc 389 ms QTC Interval ms P Lincoln -6 deg QRS Lincoln 21 deg T Lincoln 36 deg POCT glucose Collection Time: 11/02/17 [...] - will continue to follow up - consumer educator consult 2. Morbid obesity 3. CAD [...] years Interpretation Text SINUS RHYTHM WITH SHORT NC INTERVALBORDERLINE ECGPREVIOUS TRACIN11/01/2017 19.42Compared to prior ECG Sinus tachycardia is no longer present. Ventricular Rate EKG/Min 73 /min P Wave Duration 103 ms QRS-Interval (MSEC) 80 ms NC-Interval (MSEC) 116 ms QT Interval 367 ms QTc 389 ms QTC Interval ms P Lincoln -6 deg QRS Lincoln 21 deg T Lincoln 36 deg Results for orders placed during the hospital encounter of 07/31/17 Transthoracic Echo Complete W Doppler/[place] [address] Echocardiogram Report Patient Name: MOHSEN MARQUES : 1955 Study Date: 08/03/2017 1:46:17 PM Gender: F Tech: Location: [facility] Ref.Physician: Height(Cm): 155 BSA: 2.32 Weight(Kg): 125 [...] 0.60 - 0.90 ] cm LVOT Peak Snigh 1.12 [ 0.70 - 1.10 ] m/s [...] CDT Patient wants to participate in the [employer] Education program for f/u phone text regarding home glucose testing. I will set that up. Prisca Barrett RN * Prisca Barrett RN - 11/06/2017 3:03 PM CDT Mohsen Marques [id number] Lucy Yu, DO Pre-Education Assessment Visit Type: Initial Introduction: ID verified, Alert/ oriented x 4, Patient present and able to participate Provider: Control Room Technician Treatment Prior To Admission: Oral medications Knowledge [...] will need a new script though at [place] for additional test strips) Lancets: (I provided 100 lancets) Blood Glucose Testing Regimen: 4 times per day Patient prefers insulin by pen. Prisca Barrett RN, Aircraft Mechan[employer] 11/06/2017 3:04 PM * Alex Sewell RN [...] also developed throat tightness after Trazodone and CIRCULATION LIBRARIAN called. Dr. Hensley aware and was at [...] neurologic complication, without long-term current use of insulin([facility]/HCC) 10/23/2017 ??? Essential hypertension 10/23/2017 ??? Long-term current use of opiate analgesic 10/23/2017 ??? Lumbosacral spondylosis without myelopathy 10/23/2017 ??? Radiculopathy, lumbosacral region 10/23/2017 ??? Spinal stenosis of lumbar region without neurogenic claudication 10/23/2017 ??? 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 ??? Type 2 diabetes mellitus with hyperglycemia, without long-term current use of insulin ([facility]/HCC) ??? Constipation ??? Cancer of overlapping sites [...] tendency for uric acid stone formation. Source: [facility] [employer].Last revised 05-04-2017 CBC WITH AUTO DIFFERENTIAL - [...] 11/02 125 Comment: Spoke with Dr. Yu, [facility] hospitalist, who accepts the pt. By: Molly [...] SSI with additional 10 units approved by RADIO INTERFERENCE INVESTIGATOR. Blood sugar was 390 at 0200 and received another 20 units SSI. Control Room Technician was notified and aware of elevated blood [...] polydipsia and polyuria. Yeni Crespo NP 11/01/17 0067 documented in this encounter Plan of Treatment [...] - DEVICE Final Result Performing Organization Address [facility] Co de Phone Number MARY JANE ARNOLD [address] [address] [facility] [place] [employer] [address] * POCT glucose (11/06/2017 9:37 AM CDT) Glucose, POC 190 70 - 199 mg/dL [facility] Blood specimen (specimen) 11/06/2017 9:37 AM CDT 11/06/2017 9:37 AM CDT Johnathan HINTON - 11/06/2017 9:40 AM CDT Zhen Carter MD LAB POCT ORDERABLES - DEVICE Final Result Performing Organization Address City/[facility]/ZIP Co de Phone Number MARY JANE CATALINA [address] [address] [facility] [employer] [place] [address] * POCT glucose (11/06/2017 6:25 AM CDT) Glucose, POC 161 70 - 199 mg/dL [facility] Blood specimen (specimen) 11/06/2017 6:25 AM CDT 11/06/2017 6:25 AM CDT Narrative [facility] - 11/06/2017 6:50 AM CDT Zhen Carter MD LAB POCT ORDERABLES - DEVICE Final Result Performing Organization Address [facility] de Phone Number [facility] [address] [address] Department [place] [address] * eGFR (11/06/2017 5:05 AM CDT) [facility] eGFR 98 mL/min/1.7 3 m2 [facility] Comment: Interpretive Data Reference Interval Normal ?>/= 90 mL/min/1.73m2 Mildly decreased* ? 60 - 89 mL/min/1.73m2 Mildly to moderately decreased ?45 - 59 mL/min/1.73m2 Moderately to severely decreased ??30 - 44 mL/min/1.73m2 Severely decreased ?15 - 29 mL/min/1.73m2 Kidney Failure ?< 15 ??mL/min/1.73m2 *Relative to young adult level If -Palestinian multiply value by 1.16. Estimated glomerular filtration [...] ORDERABLE S Final Result Performing Organization Address [facility] Co de Phone Number MARY JANE ARNOLD [address] [address] Department [place] [address] * (ABNORMAL) Basic metabolic panel (11/06/2017 5:05 AM CDT) Sodium 135 135 - 145 mmol/L [facility] Potassium, pl 4.1 3.5 - 5.1 mmol/L [facility] Chloride 107 100 - 114 mmol/L [facility] CO2 21(L) 22 - 32 mmol/L [facility] Anion gap 11 8 - 16 mmol/L [facility] BUN 18 8 - 24 mg/dL [facility] Creatinine 0.61 0.60 - 1.30 mg/dL [facility] Glucose 173 70 - 199 mg/dL [facility] Comment: Interpretive Data Fasting glucose [...] Calcium 9.0 8.4 - 10.5 mg/dL [facility] Blood specimen (specimen) 11/06/2017 5:05 AM CDT 11/06/2017 5:29 AM CDT Narrative [facility] - 11/06/2017 5:46 AM CDT us Tessie Morin MD LAB BLOOD ORDERABLE S Final Result MARY JANE ARNOLD [address] [address] Department [place] [address] * (ABNORMAL) CBC without differential (11/06/2017 5:05 AM CDT) WBC 18.5(H) 3.8 - 9.9 K/cumm [facility] Hgb 11.6(L) 11.9 - 15.5 g/dL [facility] Hct 36.3 35.6 - 45.5 % [facility] Plt 288 150 - 400 K/cumm [facility] MPV 10.4 9.1 - 12.3 fL [facility] RBC 4.21 3.90 - 5.20 M/cumm [facility] MCV 86.2 81.3 - 96.4 fL [facility] MCH 27.6 27.1 - 33.3 pg [facility] MCHC 32.0(L) 32.3 - 35.7 g/dL [facility] RDW CV 15.3(H) 11.1 - 14.9 % [facility] CH RDW SD 47.8 35.7 - 48.1 fL [facility] NRBC abs 0.00 0.00 - 0.01 K/cumm [facility] Blood specimen (specimen) 11/06/2017 5:05 AM CDT 11/06/2017 5:31 AM CDT Narrative [facility] - 11/06/2017 5:36 AM CDT Jose Santos MD LAB BLOOD ORDERABLES Final Resul t Performing Organization Address [facility] de Phone Number MARY JANE ARNOLD [address] [place] [address] * (ABNORMAL) POCT glucose (11/06/2017 2:19 AM CDT) [facility] Glucose, POC 222(H) 70 - 199 mg/dL [facility] Blood specimen (specimen) 11/06/2017 2:19 AM CDT 11/06/2017 2:19 AM CDT Narrative MARY JANE - 11/06/2017 2:24 AM CDT Zhen Carter MD LAB POCT ORDERABLES - DEVICE Final Result Performing Organization Address [facility] Co de Phone Number [facility] [address] [address] Department of [employer] [place], [place] [address] * (ABNORMAL) POCT glucose (11/05/2017 9:03 PM CDT) Glucose, POC 292(H) 70 - 199 mg/dL [facility] Blood specimen (specimen) 11/05/2017 9:03 PM CDT 11/05/2017 9:03 PM CDT Narrative [facility] - 11/05/2017 9:23 PM CDT Zhen Carter MD LAB POCT ORDERABLES - DEVICE Final Result Performing Organization Address [facility] Co de Phone Number MARY JANE ARNOLD [address] [address] [facility] [employer] [place], [place] [id number] * POCT glucose (11/05/2017 5:34 PM CDT) Glucose, POC 165 70 - 199 mg/dL [facility] Blood specimen (specimen) 11/05/2017 5:34 PM CDT 11/05/2017 5:34 PM CDT Narrative [facility] - 11/05/2017 5:34 PM CDT Zhen Carter MD LAB POCT ORDERABLES - DEVICE Final Result Performing Organization Address [facility] de Phone Number MARY JANE ARNOLD [address] [address] [facility] [employer] [place] [address] * POCT glucose (11/05/2017 3:42 PM CDT) Glucose, POC 90 70 - 199 mg/dL [facility] Blood specimen (specimen) 11/05/2017 3:42 PM CDT 11/05/2017 3:42 PM CDT Narrative [facility] - 11/05/2017 3:43 PM CDT Zhen Carter MD LAB POCT ORDERABLES - DEVICE Final Result Performing Organization Address City/[facility] Co de Phone Number MARY JANE ARNOLD [address] [address] [facility] [employer] [place], [place] [id number] * POCT glucose (11/05/2017 12:24 PM CDT) Glucose, POC 195 70 - 199 mg/dL [facility] Blood specimen (specimen) 11/05/2017 12:24 PM CDT 11/05/2017 12:24 PM CDT Narrative [facility] - 11/05/2017 12:25 PM CDT Zhen Carter MD LAB POCT ORDERABLES - DEVICE Final Result Performing Organization Address [facility] Co de Phone Number MARY JANE ARNOLD [address] [address] [facility] [employer] [place], [place] [id number] * (ABNORMAL) POCT glucose (11/05/2017 9:29 AM CDT) Glucose, POC 247(H) 70 - 199 mg/dL [facility] Blood specimen (specimen) 11/05/2017 9:29 AM CDT 11/05/2017 9:29 AM CDT Narrative [facility] - 11/05/2017 11:02 AM CDT Zhen Carter MD LAB POCT ORDERABLES - DEVICE Final Result Performing Organization Address [facility] Co de Phone Number MARY JANE ARNOLD [address] [address] [facility] [employer] [place] [address] * POCT glucose (11/05/2017 6:32 AM CDT) Glucose, POC 182 70 - 199 mg/dL [facility] Blood specimen (specimen) 11/05/2017 6:32 AM CDT 11/05/2017 6:32 AM CDT Narrative [facility] - 11/05/2017 11:03 AM CDT Zhen Crater MD LAB POCT ORDERABLES - DEVICE Final Result Performing Organization Address City/[facility]/ZIP Co de Phone Number BCPUJA ARNOLD [address] [address] [facility] [employer] [place], [place] [id number] * eGFR (11/05/2017 4:27 AM CDT) eGFR 82 mL/min/1.7 3 m2 MARY JANE ARNOLD Comment: Interpretive Data Reference Interval Normal ?>/= 90 mL/min/1.73m2 Mildly decreased* ? 60 - 89 mL/min/1.73m2 Mildly to moderately decreased ?45 - 59 mL/min/1.73m2 Moderately to severely decreased ??30 - 44 mL/min/1.73m2 Severely decreased ?15 - 29 mL/min/1.73m2 Kidney Failure ?< 15 ??mL/min/1.73m2 *Relative to young adult level If -Palestinian multiply value by 1.16. Estimated glomerular filtration [...] ORDERABLE S Final Result MARY JANE ARNOLD [address] [address] Department [place] [address] * (ABNORMAL) Basic metabolic panel (11/05/2017 4:27 AM CDT) Pathologist [facility] Sodium 134(L) 135 - 145 mmol/L MARY [...] Calcium 9.2 8.4 - 10.5 mg/dL [facility] Blood specimen (specimen) 11/05/2017 4:27 AM CDT 11/05/2017 5:39 AM CDT Narrative [facility] - 11/05/2017 6:03 AM CDT us Tessie Morin MD LAB BLOOD ORDERABLE S Final Result [facility] [address] [address] Department [place] [address] * (ABNORMAL) CBC without differential (11/05/2017 4:27 AM CDT) WBC 16.2(H) 3.8 - 9.9 K/cumm [facility] Hgb 11.6(L) 11.9 - 15.5 g/dL [facility] Hct 37.2 35.6 - 45.5 % [facility] Plt 287 150 - 400 K/cumm [facility] MPV 10.8 9.1 - 12.3 fL [facility] RBC 4.24 3.90 - 5.20 M/cumm [facility] MCV 87.7 81.3 - 96.4 fL [facility] MCH 27.4 27.1 - 33.3 pg [facility] MCHC 31.2(L) 32.3 - 35.7 g/dL [facility] RDW CV 15.1(H) 11.1 - 14.9 % [facility] RDW SD 48.7(H) 35.7 - 48.1 fL [facility] NRBC abs 0.00 0.00 - 0.01 K/cumm [facility] Blood specimen (specimen) 11/05/2017 4:27 AM CDT 11/05/2017 5:39 AM CDT Narrative [facility] - 11/05/2017 5:42 AM CDT Jose Santos MD LAB BLOOD ORDERABLES Final Resul t Performing Organization Address [facility] de Phone Number [facility] [address] [address] [facility] [employer] [place], [place] [phone] * (ABNORMAL) POCT glucose (11/05/2017 2:07 AM CDT) Glucose, POC 303(H) 70 - 199 mg/dL [facility] Blood specimen (specimen) 11/05/2017 2:07 AM CDT 11/05/2017 2:07 AM CDT [facility] - 11/05/2017 2:09 AM CDT Zhen Carter MD LAB POCT ORDERABLES - DEVICE Final Result Performing Organization Address [facility] de Phone Number [facility] [address] [address] [facility] [employer] [place] [address] * (ABNORMAL) POCT glucose (11/05/2017 12:07 AM CDT) Glucose, POC 348(H) 70 - 199 mg/dL [facility] Blood specimen (specimen) 11/05/2017 12:07 AM CDT 11/05/2017 12:07 AM CDT Narrative [facility] - 11/05/2017 12:16 AM CDT Zhen Carter MD LAB POCT ORDERABLES - DEVICE Final Result Performing Organization Address [facility] Co de Phone Number MARY JANE ARNOLD [address] [address] [facility] [employer] [place] [address] * (ABNORMAL) POCT glucose (11/04/2017 8:21 PM CDT) Glucose, POC 278(H) 70 - 199 mg/dL [facility] Blood specimen (specimen) 11/04/2017 8:21 PM CDT 11/04/2017 8:21 PM CDT Narrative [facility] - 11/04/2017 8:22 PM CDT Zhen Carter MD LAB POCT ORDERABLES - DEVICE Final Result Performing Organization Address [facility] de Phone Number MARY JANE ARNOLD [address] [place] [address] * (ABNORMAL) POCT glucose (11/04/2017 6:27 PM CDT) Glucose, POC 326(H) 70 - 199 mg/dL [facility] Blood specimen (specimen) 11/04/2017 6:27 PM CDT 11/04/2017 6:27 PM CDT Narrative [facility] - 11/04/2017 6:28 PM CDT Zhen Carter MD LAB POCT ORDERABLES - DEVICE Final Result Performing Organization Address [facility] de Phone Number MARY JANE ARNOLD [address] [place] [address] * (ABNORMAL) POCT glucose (11/04/2017 4:58 PM CDT) Glucose, POC 268(H) 70 - 199 mg/dL [facility] Blood specimen (specimen) 11/04/2017 4:58 PM CDT 11/04/2017 4:58 PM CDT Narrative [facility] - 11/04/2017 4:59 PM CDT Zhen Carter MD LAB POCT ORDERABLES - DEVICE Final Result Performing Organization Address [facility] Co de Phone Number MARY JANE ARNOLD [address] [address] [facility] [employer] [place] [address] * POCT glucose (11/04/2017 3:00 PM CDT) Glucose, POC 102 70 - 199 mg/dL [facility] Blood specimen (specimen) 11/04/2017 3:00 PM CDT 11/04/2017 3:00 PM CDT Narrative [facility] - 11/04/2017 3:02 PM CDT Zhen Carter MD LAB POCT ORDERABLES - DEVICE Final Result Performing Organization Address [facility] de Phone Number MARY JANE ARNOLD [address] [address] Department [employer] [place] [address] * (ABNORMAL) POCT glucose (11/04/2017 2:39 PM CDT) Glucose, POC 69(L) 70 - 199 mg/dL [facility] Blood specimen (specimen) 11/04/2017 2:39 PM CDT 11/04/2017 2:39 PM CDT Narrative [facility] - 11/04/2017 2:40 PM CDT Zhen Carter MD LAB POCT ORDERABLES - DEVICE Final Result Performing Organization Address [facility] de Phone Number MARY JANE ARNOLD [address] [address] [facility] [employer] [place] [address] * POCT glucose (11/04/2017 12:18 PM CDT) Glucose, POC 126 70 - 199 mg/dL [facility] Blood specimen (specimen) 11/04/2017 12:18 PM CDT 11/04/2017 12:18 PM CDT Narrative [facility] - 11/04/2017 12:19 PM CDT Zhen Carter MD LAB POCT ORDERABLES - DEVICE Final Result Performing Organization Address [facility] Co de Phone Number MARY JANE ARNOLD [address] [address] [facility] [employer] [place] [address] * POCT glucose (11/04/2017 10:58 AM CDT) Glucose, POC 178 70 - 199 mg/dL [facility] Blood specimen (specimen) 11/04/2017 10:58 AM CDT 11/04/2017 10:58 AM CDT Narrative [facility] - 11/04/2017 10:59 AM CDT Zhen Carter MD LAB POCT ORDERABLES - DEVICE Final Result Performing Organization Address [facility] de Phone Number MARY JANE ARNOLD [address] [address] Department [employer] [place] [address] * (ABNORMAL) POCT glucose (11/04/2017 8:36 AM CDT) Glucose, POC 305(H) 70 - 199 mg/dL [facility] Blood specimen (specimen) 11/04/2017 8:36 AM CDT 11/04/2017 8:36 AM CDT Narrative [facility] - 11/04/2017 8:37 AM CDT Bia Hensley MD LAB POCT ORDERABLES - DEVIC E Final Result Performing Organization Address [facility] Co de Phone Number MARY JANE ARNOLD [address] [address] [facility] [employer] [place] [address] * (ABNORMAL) POCT glucose (11/04/2017 6:32 AM CDT) Glucose, POC 265(H) 70 - 199 mg/dL [facility] Blood specimen (specimen) 11/04/2017 6:32 AM CDT 11/04/2017 6:32 AM CDT Narrative MARY JANE - 11/04/2017 6:54 AM CDT Bia Hensley MD LAB POCT ORDERABLES - DEVIC E Final Result Performing Organization Address City/[facility]/ZIP Co de Phone Number MARY JANE [address] Department [employer] [place] [address] * (ABNORMAL) CBC without differential (11/04/2017 4:28 AM CDT) WBC 12.7(H) 3.8 - 9.9 K/cumm [facility] Hgb 11.3(L) 11.9 - 15.5 g/dL [facility] Hct 35.9 35.6 - 45.5 % [facility] Plt 263 150 - 400 K/cumm [facility] MPV 10.8 9.1 - 12.3 fL [facility] RBC 4.14 3.90 - 5.20 M/cumm [facility] MCV 86.7 81.3 - 96.4 fL [facility] MCH 27.3 27.1 - 33.3 pg [facility] MCHC 31.5(L) 32.3 - 35.7 g/dL [facility] RDW CV 14.8 11.1 - 14.9 % [facility] RDW SD 47.3 35.7 - 48.1 fL [facility] NRBC abs 0.00 0.00 - 0.01 K/cumm [facility] Blood specimen (specimen) 11/04/2017 4:28 AM CDT 11/04/2017 5:09 AM CDT Narrative MARY JANE - 11/04/2017 5:14 AM CDT Jose Santos MD LAB BLOOD ORDERABLES Final Resul t MARY JANE ARNOLD [address] [place] [employer] [address] * (ABNORMAL) POCT glucose (11/04/2017 4:09 AM CDT) Glucose, POC 298(H) 70 - 199 mg/dL [facility] Blood specimen (specimen) 11/04/2017 4:09 AM CDT 11/04/2017 4:09 AM CDT Narrative [facility] - 11/04/2017 4:10 AM CDT Bia Hensley MD LAB POCT ORDERABLES - DEVIC E Final Result Performing Organization Address [facility] Co de Phone Number [facility] [address] [facility] [employer] [place] [address] * (ABNORMAL) POCT glucose (11/04/2017 1:29 AM CDT) Glucose, POC 356(H) 70 - 199 mg/dL [facility] Blood specimen (specimen) 11/04/2017 1:29 AM CDT 11/04/2017 1:29 AM CDT Narrative [facility] - 11/04/2017 1:30 AM CDT Bia Hensley MD LAB POCT ORDERABLES - DEVIC E Final Result Performing Organization Address [facility] Co de Phone Number [facility] [address] [facility] [employer] [place] [address] * (ABNORMAL) POCT glucose (11/03/2017 11:36 PM CDT) Glucose, POC 351(H) 70 - 199 mg/dL [facility] Blood specimen (specimen) 11/03/2017 11:36 PM CDT 11/03/2017 11:36 PM CDT Narrative [facility] - 11/03/2017 11:40 PM CDT Bia Hensley MD LAB POCT ORDERABLES - DEVIC E Final Result MARY JANE ARNOLD [address] [facility] [employer] [place] [address] * (ABNORMAL) POCT glucose (11/03/2017 8:57 PM CDT) Glucose, POC 400(H) 70 - 199 mg/dL [facility] Blood specimen (specimen) 11/03/2017 8:57 PM CDT 11/03/2017 8:57 PM CDT Narrative [facility] - 11/03/2017 8:58 PM CDT Bia Hensley MD LAB POCT ORDERABLES - DEVIC E Final Result Performing Organization Address [facility] Co de Phone Number MARY JANE ARNOLD [address] [facility] [employer] [place] [address] * (ABNORMAL) POCT glucose (11/03/2017 7:56 PM CDT) Glucose, POC 455(C) 70 - 199 mg/dL [facility] Glucose comment 1 RN/MD Notified [facility] Blood specimen (specimen) 11/03/2017 7:56 PM CDT 11/03/2017 7:56 PM CDT Narrative [facility] - 11/03/2017 8:08 PM CDT Bia Hensley MD LAB POCT ORDERABLES - DEVIC E Final Result Performing Organization Address City/[facility]/ZIP Co de Phone Number MARY JANE ARNOLD [address] [facility] [employer] [place] [address] * (ABNORMAL) POCT glucose (11/03/2017 5:01 PM CDT) Glucose, POC 417(H) 70 - 199 mg/dL [facility] Blood specimen (specimen) 11/03/2017 5:01 PM CDT 11/03/2017 5:01 PM CDT [facility]ative [facility] - 11/03/2017 5:02 PM CDT Bia Hensley MD LAB POCT ORDERABLES - DEVIC E Final Result Performing Organization Address [facility] de Phone Number MARY JANE ARNOLD [address] [facility] [employer] [place] [address] * (ABNORMAL) POCT glucose (11/03/2017 1:39 PM CDT) Glucose, POC 272(H) 70 - 199 mg/dL [facility] Blood specimen (specimen) 11/03/2017 1:39 PM CDT 11/03/2017 1:39 PM CDT Narrative [facility] - 11/03/2017 1:40 PM CDT Bia Hensley MD LAB POCT ORDERABLES - DEVIC E Final Result Performing Organization Address [facility] de Phone Number [facility] ARNOLD [address] [address] [facility] [employer] [place] [address] * POCT glucose (11/03/2017 12:09 PM CDT) Glucose, POC 167 70 - 199 mg/dL [facility] Blood specimen (specimen) 11/03/2017 12:09 PM CDT 11/03/2017 12:09 PM CDT Narrative [facility] - 11/03/2017 12:11 PM CDT Bia Hensley MD LAB POCT ORDERABLES - DEVIC E Final Result Performing Organization Address [facility] de Phone Number [facility] ARNOLD [address] [facility] [employer] [place] [address] * (ABNORMAL) POCT glucose (11/03/2017 8:14 AM CDT) Glucose, POC 290(H) 70 - 199 mg/dL [facility] Blood specimen (specimen) 11/03/2017 8:14 AM CDT 11/03/2017 8:14 AM CDT Narrative MARY JANE - 11/03/2017 8:16 AM CDT Bia Hensley MD LAB POCT ORDERABLES - DEVIC E Final Result Performing Organization Address [facility] de Phone Number MARY JANE ARNOLD [address] [place] [address] * (ABNORMAL) POCT glucose (11/03/2017 6:08 AM CDT) [facility] Glucose, POC 305(H) 70 - 199 mg/dL [facility] Blood specimen (specimen) 11/03/2017 6:08 AM CDT 11/03/2017 6:08 AM CDT Narrative MARY JANE - 11/03/2017 6:09 AM CDT Bia Hensley MD LAB POCT ORDERABLES - DEVIC E Final Result Performing Organization Address [facility] de Phone Number MARY JANE ARNOLD [address] [place] [address] * (ABNORMAL) CBC without differential (11/03/2017 4:52 AM CDT) [facility] WBC 12.2(H) 3.8 - 9.9 K/cumm [facility] Hgb 11.3(L) 11.9 - 15.5 g/dL [facility] Hct 36.9 35.6 - 45.5 % [facility] Plt 281 150 - 400 K/cumm [facility] MPV 10.3 9.1 - 12.3 fL [facility] RBC 4.21 3.90 - 5.20 M/cumm [facility] MCV 87.6 81.3 - 96.4 fL [facility] MCH 26.8(L) 27.1 - 33.3 pg [facility] MCHC 30.6(L) 32.3 - 35.7 g/dL [facility] RDW CV 14.9 11.1 - 14.9 % [facility] RDW SD 48.1 35.7 - 48.1 fL [facility] NRBC abs 0.00 0.00 - 0.01 K/cumm [facility] Blood specimen (specimen) 11/03/2017 4:52 AM CDT 11/03/2017 5:06 AM CDT Narrative [facility] - 11/03/2017 5:14 AM CDT Jose Santos MD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
--- OUTSIDE RECORDS SUMMARY | 2024-04-26 09:29 | XMS_ITS | Encounter Summary ---
Author Organization [facility] Healthcare Address [address] [place] [address] Care Team Providers Care Fourdrinier Operator Name Role Phone Liu Jerez MD Unavailable Albert Corbin MD Unavailable [phone] Justen Gale MD Primary Care Provider Khris Arthur MD Unavailable [phone] Ko Melendez MD Unavailable John Palu Moyer MD Unavailable [phone] Encounter Details Date Type Department Care Team (Latest Contact Info) Description 10/31/2017 12:16 PM CDT - 10/31/2017 11:59 PM CDT Hospital Encounter 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 Gender Identity Not on file Sexual [...] on filedocumented in this encounter Care Teams Fourdrinier Operator Relationship Specialty Start Date End Date Justen Gale MD [address] [facility] [address] [place] [address] PCP - General 10/09/17 Liu Jerez MD Consulting Physician Gastroenterology 07/28/17 [place] [address] [facility] [address] [place] [address] Consulting Physician Pulmonary Disease 08/03/17 Khris Arthur MD [address] [facility] [address] [place] [address] Medical Oncologist/Patient Access Specialist Medical Oncology 10/23/17 [place] [address] [address] Surgeon Orthopedic Surgery 10/23/17 [place] [address] [address] [address] Consulting Physician Pain Management 10/23/17 documented as of this encounter
--- OUTSIDE RECORDS SUMMARY | 2024-04-26 09:29 | XMS_ITS | Encounter Summary ---
Author Organization [facility] Address [address] [place] [address] Phone Care Team Providers Care Medical Insurance Claims Specialist Name Role Phone Liu Jerez MD Unavailable Albert Corbin MD Unavailable Justen Gale MD Primary Care Provider Khris Arthur MD Unavailable [phone] Ko Melendez MD Unavailable John Paul Moyer MD Unavailable Encounter Details Date Type Department Care Team (Late st Contact Info) Description 11/13/2017 Orders Only [facility] Oncology [address] [facility] 7th [place] [address] [place] [address] Khris Arthur MD [address] [facility] [address] [place] [address] Other pulmonary embolism without acute cor pulmonale, [...] on file 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 Gender Identity Not on file Sexual [...] as of this encounter Care Teams Medical Insurance Claims Specialist Relationship Specialty Start Date End Date Justen Gale MD [address] [address] PCP - General 10/09/17 Liu Jerez MD Consulting Physician Gastroenterology 07/28/17 [place] [address] [facility] [address] [place] [address] Consulting Physician Pulmonary Disease 08/03/17 Khris Arthur MD [address] [facility] [address] [place] [address] Medical Oncologist/Gse Mechanic Medical Oncology 10/23/17 [place] [address] [address] Surgeon Orthopedic Surgery 10/23/17 [place] [address] [address] Consulting Physician Pain Management 10/23/17 documented as of this encounter
--- OUTSIDE RECORDS SUMMARY | 2024-04-26 09:29 | XMS_ITS | Encounter Summary ---
Author Organization [facility] Healthcare Address [address] [place] [address] Care Team Providers Care Conductor Orchestra Name Role Phone Liu Jerez MD Unavailable [phone] Albert Corbin MD Unavailable [phone] Justen Gale MD Primary Care Provider Khris Arthur MD Unavailable [phone] Ko Melendez MD Unavailable [phone] John Paul Moyer MD Unavailable Reason for Visit * Reason Comments Back Pain Encounter Details Date Type Department Care Team (Latest Contact Info) Description 10/25/2017 9:20 PM CDT - 10/31/2017 3:57 PM CDT Hospital Encounter [facility] [address] [place] [address] Ryan Costa Jr., MD [address] [place] [address] [place] [address] [facility] [address] [place], [place] [id number] [place] [address] [facility] [address] [place] [address] [place] [address] [facility] [address] [place] [address] Sciatica of left side (Primary [...] file 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 Melendez, open MRI at [place] was arranged which showed mild to moderate [...] Gale if too high or too low. adult educator was consulted during [facility] stay. Test Results Pending at Discharge: [...] MD 2 [facility] [address] [facility] [address] [place] [address] [facility] [address] [facility] [address] follow up with pain management within a [place] [address] [facility] [address] [facility] [address] follow up with ortho spine as needed Khris Arthur MD [address] [facility] [address] follow up with oncology as scheduled Discharge Time:Greater than 30 minutes Elo Aceves MD Hospitalists [phone] 10/31/2017 2:19 PM documented in this encounter [...] the Pain Management [facility] i mmediately at [phone]. After hours, contact the [facility] at [phone] and she will reach your physician for [...] high dose 7-5, continue accucheks, A1C 9.2. adult educator consulted. Pt states Dr. Gale added [...] changes. 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 ?? Total Fluid Estimated Needs: 1936.5 Fluid [...] neuroforaminal narrowing at L4-L5 Electronically signed by: Mlevin Knight M.D. Us Vein Duplex Lower Extremity [...] 7-5, continue accucheks, A1C 9.2. Will consult music educator and winding lathe operator, nursing supervision of insulin administration and education. [...] / SEX: 62 y.o. / female ROOM: [place] [address] : 1955 DATE: 10/28/17 TIME IN: 1025 [...] PATIENT ORIENTED TO:x4 FOLLOWING COMMANDS: WFL COMMUNICATION: [facility] COGNITIVE SCREENING: WF UE ROM / STRENGTH / COORDINATION: AROM - RIGHT: WFL STRENGTH - RIGHT: 4+/5 throughout except shoulder flex/ext, ab/ad, elbow flex/exten 3/5 AROM - LEFT:WFL STRENGTH - LEFT:4+/5 throughout except shoulder flex/ext, abd/add, elbow flex/exten 3/5 HAND DOMINANCE:right FRONT END SOFTWARE ENGINEER STRENGTH (RIGHT): good FRONT END SOFTWARE ENGINEER STRENGTH (LEFT): good RIGHT COORDINATION: intact LEFT COORDINATION: intact BALANCE: STATIC SITTING: good unsupported DYNAMIC SITTING: good- unsupported STATIC STANDING: good unsupported DYNAMIC STANDING: good- unsupported MOBILITY / TRANSFERS: TRANSFER(S): EOB to bedside chair CGA using cane, bedside chair to bed using cane CGA, would benefit from WW vs cane LIVING SKILLS: UE DRESSING (OVERALL ASSIST LEVEL):SBA {COMPONENTS PERFORMANCE: 4/4 ITEM: heat treat puller shirt LOCATION:sitting EOB LE DRESSING (OVERALL ASSIST LEVEL):max A COMPONENTS PERFORMANCE: 2/5, don bilateral footies with max A, thread RLE in pants SBA, LLE thread with min A, heat treat puller hips CGA for steadying ITEM:footies, elastic pants LOCATION: sitting/standing EOB THERAPY PLAN: REHAB POTENTIAL (PROGNOSIS): good PROBLEM LIST: decreased endurance and strength for ADLs and IADLs OT RECOMMENDATIONS: return home with home health SUPERVISION: intermittent BARRIERS TO DISCHARGE:pain FREQUENCY OF THERAPY: 3-5 TIMES / WEEK SHORT TERM GOALS: Multi-Disciplinary Problems (from Occupational Therapy) Active Problems Problem: OT [facility] Start Date: 10/28/17 Goal Start Date End Date [facility] 1 10/28/17 -- Goal Details: Patient will complete bathing with min A 1x using AE Goal Start Date End Date [facility] 2 10/28/17 -- Goal Details: Patient will complete LE dressing with min A using AE 1x Goal Start Date End Date [facility] 3 10/28/17 -- Goal Details: Patient will complete bed/chair/toilet transfer mod I 1x Goal Start Date End Date [facility] 4 10/28/17 -- Goal Details: Patient will verbalize 2/3 energy conservation techniques for ADLs after review of information 1x Goal Start Date End Date [facility] 5 10/28/17 -- Goal Details: Patient [...] is scheduled for MRIscan lumbar spine at [facility]. I will see the patient after [...] Type of Weight Used forEstimated Protein : [place]. ?? Total Fluid Estimated Needs: 1936.5 Fluid [...] questions . Nutrition Follow-Up : 11/01/[address],LD documented in this encounter H&P Notes [...] of insulin ([facility]) History of DVT (deep vein thrombosis) History of pulmonary embolism Cancer of overlapping sites of left female breast ([facility]) 1 Low back pain with left lower [...] fit her into the MRI scan at [facility] and she reported that earlier shehad attempted to get an MRI scan at [facility] and was not successful because [...] scan performed at the open unit in [facility]. I have personally seen this MRI [...] 10/27/2017 11:11 AM CDT Karly Montero Shelli [id number] Remi Garza MD Pre-Education Assessment Visit Type: Initial (This was a short visit. EMS ambulance service arrived to take patient off the floor for testing.) Introduction: ID verified Provider: Medical/Home Aide/PCP (Patient states that she recently started seeing [...] with diabetes related questions. Nydia Maciel RN, Yarn Worker 10/27/2017 11:11 AM documented in this encounter [...] also noticed slight constipation secondaryto her taking [place] 5 mg every 6 hours. Patient denies [...] venous thrombosis. Patient was discharged home with [place] and Prednisone. Patient was admitted here from [...] palpitations. Gastrointestinal: Positive for constipation (secondary to [place] use). Negative for abdominal pain, diarrhea, nausea [...] is normal. Nursing note and vitals reviewed. [facility] MDM Labs Reviewed POCT GLUCOSE DEVICE - [...] Comment: Discussed patient's case with Dr. Garza, [facility] hospitalist, who accepts the patient for admission. [...] be going home with a script for [place]. Health Behavior: ??? Understanding of discharge needs [...] given dilaudid, said that she would try [place] next time, blood sugars still fluctuating, now [...] of insulin ([facility]) Radiculopathy, lumbosacral region Dysuria Full Code Estimated [...] * POCT glucose (10/31/2017 2:08 PM CDT) [facility] Signature Glucose, POC 151 70 - 199 mg/dL MARY JANE ARNOLD Blood specimen (specimen) 10/31/2017 2:08 PM CDT 10/31/2017 2:08 PM CDT Narrative MARY JANE ARNOLD - 10/31/2017 2:19 PM CDT us Elo Aceves MD LAB POCT ORDERABLES - DEVICE Final Result MARY JANE ARNOLD [address] Department [place] [address] * XR Spine Lumbar 2 or 3 Views (10/31/2017 12:51 PM CDT) Narrative RAD_PACS_ - 10/31/2017 12:51 PM CDT The images from this study are not interpreted by Radiology. ??Please refer to the physician's procedure / OR operative note. John Paul Moyer MD IMG XR PROCEDURES Fin al Result Performing Organization Address [facility] de Phone Number RAD_PACS_CH * POCT glucose (10/31/2017 7:38 AM CDT) Glucose, POC 176 70 - 199 mg/dL [facility] Blood specimen (specimen) 10/31/2017 7:38 AM CDT 10/31/2017 7:38 AM CDT Narrative [facility] - 10/31/2017 7:40 AM CDT Elo Aceves MD LAB POCT ORDERABLES - DEVICE Final Result Performing Organization Address [facility] de Phone Number [facility] [address] [place] [address] * POCT glucose (10/31/2017 2:57 AM CDT) Glucose, POC 194 70 - 199 mg/dL [facility] Blood specimen (specimen) 10/31/2017 2:57 AM CDT 10/31/2017 2:57 AM CDT Narrative [facility] - 10/31/2017 2:58 AM CDT Elo Aceves MD LAB POCT ORDERABLES - DEVICE Final Result Performing Organization Address [facility] de Phone Number [facility] [address] [place] [address] * (ABNORMAL) POCT glucose (10/30/2017 8:38 PM CDT) Glucose, POC 201(H) 70 - 199 mg/dL [facility] Blood specimen (specimen) 10/30/2017 8:38 PM CDT 10/30/2017 8:38 PM CDT Narrative [facility] - 10/30/2017 8:40 PM CDT Elo Aceves MD LAB POCT ORDERABLES - DEVICE Final Result Performing Organization Address [facility] Co de Phone Number MARY JANE ARNOLD [address] [facility] [place] [address] * POCT glucose (10/30/2017 5:50 PM CDT) Glucose, POC 164 70 - 199 mg/dL [facility] Blood specimen (specimen) 10/30/2017 5:50 PM CDT 10/30/2017 5:50 PM CDT Narrative [facility] - 10/30/2017 5:51 PM CDT Elo Aceves MD LAB POCT ORDERABLES - DEVICE Final Result Performing Organization Address [facility] Co de Phone Number MARY JANE ARNOLD [address] [address] [facility] [place] [address] * POCT glucose (10/30/2017 12:44 PM CDT) Glucose, POC 165 70 - 199 mg/dL [facility] Blood specimen (specimen) 10/30/2017 12:44 PM CDT 10/30/2017 12:44 PM CDT Narrative [facility] - 10/30/2017 12:45 PM CDT Elo Aceves MD LAB POCT ORDERABLES - DEVICE Final Result Performing Organization Address [facility] Co de Phone Number MARY JANE ARNOLD [address] [address] [facility] [place] [address] * POCT glucose (10/30/2017 7:37 AM CDT) Glucose, POC 178 70 - 199 mg/dL [facility] Blood specimen (specimen) 10/30/2017 7:37 AM CDT 10/30/2017 7:37 AM CDT Narrative [facility] - 10/30/2017 7:38 AM CDT Hipolito Torres Moise [facility] POCT ORDERABLES - DEVICE Final Result Performing Organization Address [facility] de Phone Number MARY JANE ARNOLD [address] [place] [address] * POCT glucose (10/30/2017 3:06 AM CDT) Glucose, POC 198 70 - 199 mg/dL [facility] Blood specimen (specimen) 10/30/2017 3:06 AM CDT 10/30/2017 3:06 AM CDT Johnathan YANCEYPUJA - 10/30/2017 3:16 AM CDT Hipolito Phipps [facility] POCT ORDERABLES - DEVICE Final Result Performing Organization Address [facility] de Phone Number MARY JANE ARNOLD [address] [place] [address] * (ABNORMAL) POCT glucose (10/29/2017 8:46 PM CDT) Glucose, POC 238(H) 70 - 199 mg/dL [facility] Blood specimen (specimen) 10/29/2017 8:46 PM CDT 10/29/2017 8:46 PM CDT Johnathan YANCEYPUJA - 10/29/2017 8:56 PM CDT [facility] POCT ORDERABLES - DEVICE Final Result Performing Organization Address [facility] de Phone Number MARY JANE ARNOLD [address] [place] [address] * POCT glucose (10/29/2017 5:53 PM CDT) Glucose, POC 149 70 - 199 mg/dL [facility] Blood specimen (specimen) 10/29/2017 5:53 PM CDT 10/29/2017 5:53 PM CDT Narrative MARY JANE ARNOLD - 10/29/2017 5:54 PM CDT Hipolito Torres Moise [facility] POCT ORDERABLES - DEVICE Final Result Performing Organization Address [facility] Co de Phone Number MARY JANE ARNOLD [address] [facility] [place] [address] * (ABNORMAL) POCT glucose (10/29/2017 12:56 PM CDT) Glucose, POC 201(H) 70 - 199 mg/dL [facility] Blood specimen (specimen) 10/29/2017 12:56 PM CDT 10/29/2017 12:56 PM CDT Narrative MARY JANE - 10/29/2017 12:58 PM CDT Hipolito Brian Moise [facility] POCT ORDERABLES - DEVICE Final Result Performing Organization Address [facility] de Phone Number MARY JANE ARNOLD [address] [facility] [place] [address] * POCT glucose (10/29/2017 7:59 AM CDT) Glucose, POC 174 70 - 199 mg/dL [facility] Blood specimen (specimen) 10/29/2017 7:59 AM CDT 10/29/2017 7:59 AM CDT Narrative MARY JANE - 10/29/2017 8:15 AM CDT Hipolito Brian Moise [facility] POCT ORDERABLES - DEVICE Final Result Performing Organization Address [facility] Co de Phone Number MARY JANE ARNOLD [address] [place] [address] * (ABNORMAL) POCT glucose (10/29/2017 2:39 AM CDT) Glucose, POC 236(H) 70 - 199 mg/dL [facility] Blood specimen (specimen) 10/29/2017 2:39 AM CDT 10/29/2017 2:39 AM CDT Narrative [facility] - 10/29/2017 2:41 AM CDT Elo Aceves MD LAB POCT ORDERABLES - DEVICE Final Result Performing Organization Address [facility] Co de Phone Number MARY JANE ARNOLD [address] [facility] [place] [address] * (ABNORMAL) POCT glucose (10/28/2017 8:15 PM CDT) Glucose, POC 208(H) 70 - 199 mg/dL [facility] Blood specimen (specimen) 10/28/2017 8:15 PM CDT 10/28/2017 8:15 PM CDT Narrative [facility] - 10/28/2017 8:18 PM CDT Elo Aceves MD LAB POCT ORDERABLES - DEVICE Final Result Performing Organization Address [facility] Co de Phone Number MARY JANE [address] [place] [address] * POCT glucose (10/28/2017 5:49 PM CDT) Glucose, POC 168 70 - 199 mg/dL [facility] Blood specimen (specimen) 10/28/2017 5:49 PM CDT 10/28/2017 5:49 PM CDT Narrative [facility] - 10/28/2017 5:51 PM CDT Elo Aceves MD LAB POCT ORDERABLES - DEVICE Final Result Performing Organization Address [facility] Co de Phone Number MARY JANE [address] [facility] [place] [address] * (ABNORMAL) POCT glucose (10/28/2017 12:43 PM CDT) Glucose, POC 277(H) 70 - 199 mg/dL [facility] Blood specimen (specimen) 10/28/2017 12:43 PM CDT 10/28/2017 12:43 PM CDT Narrative [facility] - 10/28/2017 12:44 PM CDT Elo Aceves MD LAB POCT ORDERABLES - DEVICE Final Result Performing Organization Address [facility] de Phone Number MARY JANE [address] [place] [address] * (ABNORMAL) Urinalysis, microscopic only (10/28/2017 8:18 [...] ORDERABLES F inal Result Performing Organization Address [facility] de Phone Number MARY JANE [address] [facility] [place] [address] * (ABNORMAL) Urinalysis reflex to microscopic and [...] uric acid stone formation. Source: [facility]. Last revised 05-04-2017 us Remi Garza MD LAB MICROBIOLOGY - GEN ERAL ORDERABLES Final Result Performing Organization Address [facility] Co de Phone Number MARY JANE [address] [place] [address] * POCT glucose (10/28/2017 7:46 AM CDT) Glucose, POC 155 70 - 199 mg/dL [facility] Blood specimen (specimen) 10/28/2017 7:46 AM CDT 10/28/2017 7:46 AM CDT Narrative [facility] - 10/28/2017 7:55 AM CDT Elo Aceves MD LAB POCT ORDERABLES - DEVICE Final Result Performing Organization Address City/[facility]/ZIP Co de Phone Number MARY JANE ARNOLD [address] [place] [address] * (ABNORMAL) POCT glucose (10/28/2017 3:27 AM CDT) Glucose, POC 205(H) 70 - 199 mg/dL [facility] Blood specimen (specimen) 10/28/2017 3:27 AM CDT 10/28/2017 3:27 AM CDT Narrative MARY JANE - 10/28/2017 3:29 AM CDT Elo Aceves MD LAB POCT ORDERABLES - DEVICE Final Result Performing Organization Address [facility] Co de Phone Number MARY JANE ARNOLD [address] [facility] [place] [address] * (ABNORMAL) POCT glucose (10/27/2017 8:18 PM CDT) Glucose, POC 297(H) 70 - 199 mg/dL [facility] Blood specimen (specimen) 10/27/2017 8:18 PM CDT 10/27/2017 8:18 PM CDT Johnathan MARY JANE - 10/27/2017 8:20 PM CDT Elo Aceves MD LAB POCT ORDERABLES - DEVICE Final Result Performing Organization Address [facility] Co de Phone Number MARY JANE ARNOLD [address] [address] [facility] [place] [address] * (ABNORMAL) POCT glucose (10/27/2017 5:30 PM CDT) Glucose, POC 245(H) 70 - 199 mg/dL [facility] Blood specimen (specimen) 10/27/2017 5:30 PM CDT 10/27/2017 5:30 PM CDT Johnathan [facility] - 10/27/2017 5:35 PM CDT Elo Aceves MD LAB POCT ORDERABLES - DEVICE Final Result Performing Organization Address [facility] Co de Phone Number MARY JANE ARNOLD [address] [place] [address] * POCT glucose (10/27/2017 1:08 PM CDT) Glucose, POC 190 70 - 199 mg/dL [facility] Blood specimen (specimen) 10/27/2017 1:08 PM CDT 10/27/2017 1:08 PM CDT Narrative MARY JANE ARNOLD - 10/28/2017 3:46 AM CDT Elo Aceves MD LAB POCT ORDERABLES - DEVICE Final Result MARY JANE ARNOLD [address] Department [place] [address] * MRI Lumbar Spine WO Contrast (10/27/2017 [...] Glucose, POC 317(H) 70 - 199 mg/dL [facility] Blood specimen (specimen) 10/27/2017 7:49 AM CDT 10/27/2017 7:49 AM CDT Narrative MARY JANE - 10/27/2017 8:24 AM CDT Elo Aceves MD LAB POCT ORDERABLES - DEVICE Final Result Performing Organization Address [facility] de Phone Number [facility] [address] [place] [address] * (ABNORMAL) Hemoglobin A1c (10/27/2017 6:29 AM CDT) Hgb A1C 9.2(H) 4.0 - 6.0 % MARY JANE Comment: Interpretive Data Hemoglobin A1c ADA Interpretive Guidelines ??<7% ?? Glycemia controlled ??>8% ?? Hyperglycemia, additional action recommended Lizandro Immunochemical Method Current interpretive data was last revised on 2015 Testing performed by: [facility] [place] [address] Estimated Average Glucose 217 mg/dL MARY JANE Comment:Testing performed by : [facility] [place] [address] Blood specimen (specimen) 10/27/2017 6:29 AM CDT 10/28/2017 10:34 AM CDT Narrative MARY JANE - 10/28/2017 11:43 AM CDT Please add to labs done today Elo Aceves MD LAB BLOOD ORDERABLE S Final Result Performing Organization Address [facility] de Phone Number [facility] [address] [facility] [place] [address] * eGFR (10/27/2017 6:29 AM [...] ??mL/min/1.73m2 *Relative to young adult level If -Congolese multiply value by 1.16. Estimated glomerular filtration [...] BLOOD ORDERABLES F inal Result MARY JANE [address] [place] [address] * (ABNORMAL) Differential, auto (10/27/2017 6:29 AM CDT) Neutrophil abs 6.2 1.7 - 6.5 K/cumm [facility] Imm gran abs 0.0 0.0 - 0.1 K/cumm [facility] Lymphocyte abs 3.1 0.8 - 3.3 K/cumm [facility] Monocyte abs 0.9(H) 0.2 - 0.8 K/cumm [facility] Eosinophil abs 0.1 0.0 - 0.5 K/cumm [facility] Basophil abs 0.0 0.0 - 0.1 K/cumm [facility] Neutrophil pct 60.0 % [facility] Comment: Interpretive [...] revised on 2017. Lymphocyte pct 29.5 % [facility] Comment: Interpretive Data Percent cell count reference ranges are not reported, since discordance with absolute values may lead to misinterpretation of CBC data. Current Interpretive Data was last revised on 2017. Monocyte pct 8.7 % [facility] Comment: Interpretive Data Percent cell count reference ranges are not reported, since discordance with absolute values may lead to misinterpretation of CBC data. Current Interpretive Data was last revised on 2017. Eosinophil pct 1.0 % [facility] Comment: Interpretive [...] AM CDT 10/27/2017 6:46 AM CDT Narrative [facility] - 10/27/2017 6:49 AM CDT us Remi Garza MD LAB BLOOD ORDERABLES F inal Result MARY JANE [address] [place] [address] * (ABNORMAL) Magnesium (10/27/2017 6:29 AM CDT) Magnesium 1.7(L) 1.8 - 2.6 mg/dL [facility] Blood specimen (specimen) 10/27/2017 6:29 AM CDT 10/27/2017 6:46 AM CDT Narrative [facility] - 10/27/2017 7:07 AM CDT Remi Garza MD LAB BLOOD ORDERABLES F inal Result Performing Organization Address [facility] Co hi Phone Number [facility] [address] [place] [address] * (ABNORMAL) Basic metabolic panel (10/27/2017 6:29 AM CDT) Sodium 133(L) 135 - 145 mmol/L [facility] Potassium, pl 4.3 3.5 - 5.1 mmol/L [facility] Chloride 101 100 - 114 mmol/L [facility] CO2 27 22 - 32 mmol/L [facility] Anion gap 9 8 - 16 mmol/L [facility] BUN 20 8 - 24 mg/dL [facility] Creatinine 0.82 0.60 - 1.30 mg/dL [facility] Glucose 349(H) 70 - 199 mg/dL [facility] [...] AM CDT 10/27/2017 6:46 AM CDT Narrative [facility] - 10/27/2017 7:07 AM CDT Remi Garza MD LAB BLOOD ORDERABLES F inal Result MARY JANE ARNOLD [address] [place] [address] * (ABNORMAL) CBC with auto differential (10/27/2017 6:29 AM CDT) WBC 10.4(H) 3.8 - 9.9 K/cumm [facility] RBC 3.87(L) 3.90 - 5.20 M/cumm [facility] Hgb 10.5(L) 11.9 - 15.5 g/dL [facility] Hct 34.8(L) 35.6 - 45.5 % [facility] MCV 89.9 81.3 - 96.4 fL [facility] MCH 27.1 27.1 - 33.3 pg [facility] MCHC 30.2(L) 32.3 - 35.7 g/dL [facility] RDW CV 14.9 11.1 - 14.9 % [facility] RDW SD 49.5(H) 35.7 - 48.1 fL [facility] Plt 274 150 - 400 K/cumm [facility] MPV 10.2 9.1 - 12.3 fL [facility] NRBC abs 0.00 0.00 - 0.01 K/cumm [facility] Blood specimen (specimen) 10/27/2017 6:29 AM CDT 10/27/2017 6:46 AM CDT Narrative [facility] - 10/27/2017 6:49 AM CDT Remi Garza MD LAB BLOOD ORDERABLES F inal Result MARY JANE ARNOLD [id number] Department [place] [address] * (ABNORMAL) POCT glucose (10/27/2017 4:41 AM CDT) Pathologist [facility] Glucose, POC 360(H) 70 - 199 mg/dL [facility] Blood specimen (specimen) 10/27/2017 4:41 AM CDT 10/27/2017 4:41 AM CDT Narrative [facility] - 10/27/2017 4:42 AM CDT Elo Aceves MD LAB POCT ORDERABLES - DEVICE Final Result Performing Organization Address [facility] Co de Phone Number MARY JANE ARNOLD [address] [address] [facility] [place] [address] * (ABNORMAL) POCT glucose (10/26/2017 9:09 PM CDT) Glucose, POC 408(H) 70 - 199 mg/dL [facility] Blood specimen (specimen) 10/26/2017 9:09 PM CDT 10/26/2017 9:09 PM CDT [facility] - 10/26/2017 9:10 PM CDT Elo Aceves MD LAB POCT ORDERABLES - DEVICE Final Result Performing Organization Address [facility] de Phone Number MARY JANE ARNOLD [address] [address] [facility] [place] [address] * (ABNORMAL) POCT glucose (10/26/2017 9:05 PM CDT) Glucose, POC 420(H) 70 - 199 mg/dL [facility] Blood specimen (specimen) 10/26/2017 9:05 PM CDT 10/26/2017 9:05 PM CDT [facility] - 10/26/2017 9:06 PM CDT Elo Aceves MD LAB POCT ORDERABLES - DEVICE Final Result Performing Organization Address [facility] Co de Phone Number MARY JANE ARNOLD [address] [place] [address] * (ABNORMAL) POCT glucose (10/26/2017 5:48 PM CDT) Glucose, POC 318(H) 70 - 199 mg/dL [facility] Blood specimen (specimen) 10/26/2017 5:48 PM CDT 10/26/2017 5:48 PM CDT Narrative MARY JANE - 10/26/2017 5:52 PM CDT Elo Aceves MD LAB POCT ORDERABLES - DEVICE Final Result Performing Organization Address [facility]/ZIP Co de Phone Number MARY JANE ARNOLD [address] [address] [facility] [place] [address] * (ABNORMAL) POCT glucose (10/26/2017 12:16 PM CDT) Glucose, POC 357(H) 70 - 199 mg/dL MARY JANE Blood specimen (specimen) 10/26/2017 12:16 PM CDT 10/26/2017 12:16 PM CDT Narrative MARY JANE - 10/26/2017 12:22 PM CDT Elo Aceves MD LAB POCT ORDERABLES - DEVICE Final Result Performing Organization Address [facility] Co de Phone Number BCPUJA ARNOLD [address] [address] [facility] [place] [address] * (ABNORMAL) POCT glucose (10/26/2017 8:06 AM CDT) Glucose, POC 380(H) 70 - 199 mg/dL MARY JANE Blood specimen (specimen) 10/26/2017 8:06 AM CDT 10/26/2017 8:06 AM CDT Narrative MARY JANE - 10/26/2017 8:09 AM CDT Elo Aceves MD LAB POCT ORDERABLES - DEVICE Final Result Performing Organization Address [facility]/ZIP Co de Phone Number MARY JANE ARNOLD [address] [address] [facility] [place] [address] * eGFR (10/26/2017 7:38 AM CDT) eGFR 78 mL/min/1.7 3 m2 MARY JANE Comment: Interpretive Data Reference Interval Normal ?>/= 90 mL/min/1.73m2 Mildly decreased* ? 60 - 89 mL/min/1.73m2 Mildly to moderately decreased ?45 - 59 mL/min/1.73m2 Moderately to severely decreased ??30 - 44 mL/min/1.73m2 Severely decreased ?15 - 29 mL/min/1.73m2 Kidney Failure ?< 15 ??mL/min/1.73m2 *Relative to young adult level If -Congolese multiply value by 1.16. Estimated glomerular filtration [...] LAB BLOOD ORDERABLES F inal Result [facility] [id number] [address] Department [place] [address] * (ABNORMAL) Differential, auto (10/26/2017 7:38 AM CDT) Pathologist [facility] Neutrophil abs 6.5 1.7 - 6.5 K/cumm [facility] Imm gran abs 0.0 0.0 - 0.1 K/cumm [facility] Lymphocyte abs 1.1 0.8 - 3.3 K/cumm [facility] Monocyte abs 0.0(L) 0.2 - 0.8 K/cumm [facility] Eosinophil abs 0.0 0.0 - 0.5 K/cumm [facility] Basophil abs 0.0 0.0 - 0.1 K/cumm [facility] Neutrophil pct 83.9 % [facility] Comment: Interpretive Data Percent cell count reference ranges are not reported, since discordance with absolute values may lead to misinterpretation of CBC data. Current Interpretive Data was last revised on 2017. Imm gran pct 0.6 % [facility] Comment: Interpretive Data Percent cell count reference ranges are not reported, since discordance with absolute values may lead to misinterpretation of CBC data. Current Interpretive Data was last revised on 2017. Lymphocyte pct 14.5 % [facility] Comment: Interpretive Data Percent cell count reference ranges are not reported, since discordance with absolute values may lead to misinterpretation of CBC data. Current Interpretive Data was last revised on 2017. Monocyte pct 0.6 % [facility] Comment: Interpretive Data Percent cell count reference ranges are not reported, since discordance with absolute values may lead to misinterpretation of CBC data. Current Interpretive Data was last revised on 2017. Eosinophil pct 0.1 % [facility] Comment: Interpretive Data Percent cell count reference ranges are not reported, since discordance with absolute values may lead to misinterpretation of CBC data. Current Interpretive Data was last revised on 2017. Basophil pct 0.3 % [facility] Comment: Interpretive Data Percent cell count reference ranges are not reported, since discordance with absolute values may lead to misinterpretation of CBC data. Current Interpretive Data was last revised on 2017. Blood specimen (specimen) 10/26/2017 7:38 AM CDT 10/26/2017 7:54 AM CDT Narrative [facility] - 10/26/2017 8:02 AM CDT us Remi Garza MD LAB BLOOD ORDERABLES F inal Result [facility] [address] [address] Department [place] [address] * (ABNORMAL) Magnesium (10/26/2017 7:38 AM CDT) Magnesium 1.7(L) 1.8 - 2.6 mg/dL [facility] Blood specimen (specimen) 10/26/2017 7:38 AM CDT 10/26/2017 7:54 AM CDT Narrative [facility] - 10/26/2017 8:15 AM CDT us Remi Garza MD LAB BLOOD ORDERABLES F inal Result [facility] [address] [address] Department [place] [address] * (ABNORMAL) Basic metabolic panel (10/26/2017 7:38 AM CDT) Sodium 133(L) 135 - 145 mmol/L [facility] Potassium, pl 4.6 3.5 - 5.1 mmol/L [facility] Chloride 102 100 - 114 mmol/L [facility] CO2 23 22 - 32 mmol/L [facility] Anion gap 13 8 - 16 mmol/L [facility] BUN 17 8 - 24 mg/dL [facility] Creatinine 0.81 0.60 - 1.30 mg/dL [facility] Glucose 414(H) 70 - 199 mg/dL [facility] 2017. Calcium 9.4 8.4 - 10.5 mg/dL [facility] Blood specimen (specimen) 10/26/2017 7:38 AM CDT 10/26/2017 7:54 AM CDT Narrative [facility] - 10/26/2017 8:15 AM CDT Remi Garza MD LAB BLOOD ORDERABLES F inal Result Performing Organization Address [facility] de Phone Number MARY JANE [address] [address] [place], [place] [id number] * (ABNORMAL) CBC with auto differential (10/26/2017 7:38 AM CDT) WBC 7.8 3.8 - 9.9 K/cumm [facility] RBC 4.19 3.90 - 5.20 M/cumm [facility] Hgb 11.6(L) 11.9 - 15.5 g/dL [facility] Hct 36.6 35.6 - 45.5 % [facility] MCV 87.4 81.3 - 96.4 fL [facility] MCH 27.7 27.1 - 33.3 pg [facility] MCHC 31.7(L) 32.3 - 35.7 g/dL [facility] RDW CV 14.6 11.1 - 14.9 % [facility] RDW SD 46.7 35.7 - 48.1 fL [facility] Plt 294 150 - 400 K/cumm [facility] MPV 9.8 9.1 - 12.3 fL [facility] NRBC abs 0.00 0.00 - 0.01 K/cumm [facility] Blood specimen (specimen) 10/26/2017 7:38 AM CDT 10/26/2017 7:54 AM CDT Narrative MARY JANE - 10/26/2017 8:02 AM CDT Remi Garza MD LAB BLOOD ORDERABLES F inal Result Performing Organization Address [facility] Co de Phone Number MARY JANE ARNOLD [address] [address] [facility] [place] [address] * aPTT (10/26/2017 7:38 AM CDT) aPTT 32.6 25.0 - 37.0 sec [facility] Blood specimen (specimen) 10/26/2017 7:38 AM CDT 10/26/2017 7:54 AM CDT Narrative [facility] - 10/26/2017 8:17 AM CDT Remi Garza MD LAB BLOOD ORDERABLES F inal Result Performing Organization Address [facility] Co de Phone Number MARY JANE ARNOLD [address] [address] [facility] [address] [place], [place] [id number] * Protime-INR (10/26/2017 7:38 AM CDT) PT 12.8 9.5 - 13.0 sec [facility] INR 1.13 0.90 - 1.20 [facility] Blood specimen (specimen) 10/26/2017 7:38 AM CDT 10/26/2017 7:54 AM CDT Narrative [facility] - 10/26/2017 8:14 AM CDT Remi Garza MD LAB BLOOD ORDERABLES F inal Result Performing Organization Address [facility] de Phone Number MARY JANE ARNOLD [address] [address] [place], [place] [id number] * (ABNORMAL) POCT glucose (10/26/2017 4:57 AM CDT) Glucose, POC 439(H) 70 - 199 mg/dL [facility] Blood specimen (specimen) 10/26/2017 4:57 AM CDT 10/26/2017 4:57 AM CDT Narrative [facility] - 10/26/2017 5:18 AM CDT Remi Garza MD LAB POCT ORDERABLES - DEVICE Final Result Performing Organization Address [facility]/ZIP Co de Phone Number MARY JANE ARNOLD [address] [address] [facility] [place] [address] * (ABNORMAL) POCT glucose (10/26/2017 2:09 AM CDT) Glucose, POC 315(H) 70 - 199 mg/dL [facility]ARY JANE Blood specimen (specimen) 10/26/2017 2:09 AM CDT 10/26/2017 2:09 AM CDT Narrative MARY JANE ARNOLD - 10/26/2017 2:11 AM CDT us Notinfile Unknown LAB POCT ORDERABLES - DEVICE F inal Result [id number] [address] Department of Laboratories [place] [phone] documented in this encounter Visit Diagnoses Diagnosis [...] Every 12 hours scheduled, First dose on [facility] 10/26/17 at 2100, Indications: VTE ProphylaxisIndications:VTE Prophylaxis Given 10/30/2017 9:13 AM CDT 40 mg Right Lower Abdomen Given 10/29/2017 8:42 PM CDT 40 mg Ri ght Upper Abdomen Given 10/29/2017 11:19 AM CDT 40 mg L eft Upper Abdomen exemestane (AROMASIN) tablet 25 mg 25 mg, oral, Daily, First dose on [facility] 10/26/17 at 0900 Given 10/30/2017 9:14 AM CDT 25 mg Given 10/29/2017 11:23 AM CDT 25 mg Given 10/28/2017 8:21 AM CDT 25 mg fluticasone (FLONASE) 50 mcg/actuation nasal spray 1 spray 1 spray, each nostril, 2 times daily, First dose (after last modification) on [facility] 10/26/17 at 0900 Given 10/29/2017 9:00 PM CDT 1 spray gabapentin (NEURONTIN) capsule 100 mg 100 mg, oral, 3 times daily, First dose on [facility] 10/26/17 at 0900 Given 10/31/2017 8:19 AM CDT 100 mg Given 10/30/2017 8:41 PM CDT 100 mg Given 10/30/2017 6:05 PM CDT 100 mg HYDROcodone-acetaminophen (NORCO) 5-325 mg per tablet 1 tablet 1 tablet, oral, 4 times daily PRN, 1st line for pain, Starting on [facility] 10/26/17 at 0507, Indications: PainIndications:Pain Given [...] 2 puff, inhalation, Every 4 hours PRN (manager respiratory care), wheezing, Starting on [facility] 10/26/17 at 0456, [...] 10/26/2017 documented in this encounter Care Teams Conductor Orchestra Relationship Specialty Start Date End Date Justen Gale MD [address] [place] [id number] PCP - General 10/09/17 Liu Jerez MD Consulting Physician Gastroenterology 07/28/17 [place] [address] [facility] [address] [place] [address] Consulting Physician Pulmonary Disease 08/03/17 Khris Arthur MD [address] [facility] [address] [place] [address] Medical Oncologist/Shirt Cleaner Medical Oncology 10/23/17 [place] [address] [address] [facility] [address] [place] [address] Surgeon Orthopedic Surgery 10/23/17 [place] [address] [address] [facility] [address] [place] [address] Consulting Physician Pain Management 10/23/17 documented as of this encounter
--- OUTSIDE RECORDS SUMMARY | 2024-04-26 09:29 | XMS_ITS | Encounter Summary ---
Author Organization [facility] Healthcare Address [address] [place] [address] Care Team Providers Care Security Flex Utility Officer Name Role Phone Liu Jerez MD Unavailable [phone] Albert Corbin MD Unavailable [phone] Justen Gale MD Primary Care Provider Khris rAthur MD Unavailable [phone] Ko Melendez MD Unavailable John Paul Moyer MD Unavailable Reason for Visit * Reason Comments Back Pain Encounter Details Date Type Department Care Team (Late st Contact Info) Description 10/31/2017 10:00 AM CDT - 10/31/2017 10:15 AM CDT Surgery [facility] [address] [place] [address] John Paul Moyer MD [address] [place] [address] [address] [place] [address] Injection - Epidural Steroid - [...] on file 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 Melendez, open MRI at [place] was arranged which showed mild to moderate [...] Gale if too high or too low. chemical educator was consulted during [facility] stay. Test Results Pending at Discharge: [...] primary care provider Justen Gale MD 2 [facility] [address] [facility] [address] [place] [address] [facility] [address] [place] [address] follow up with pain management within a [place] [address] [facility] [address] [address] follow up with ortho spine as needed Khris Arthur MD [address] [facility] [address] follow up with oncology as scheduled Discharge Time:Greater than 30 minutes Elo Aceves MD [facility] [phone] 10/31/2017 2:19 PM documented in this encounter [...] the Pain Management Center i mmediately at [phone]. After hours, contact the [facility] Desizing Machine Operator at [phone] and she will reach your physician for [...] high dose 7-5, continue accucheks, A1C 9.2. chemical educator consulted. Pt states Dr. Gale added [...] changes. Pt also reported having use steroids PRICING INTERN and that HgA1c likely alyce due to [...] Type of Weight Used forEstimated Protein : [place]. ?? Total Fluid Estimated Needs: 1936.5 Fluid [...] as plan for epidural steroid injection, Dr. Moyre consulted-apparently office closed till 10-30-d/w Dr. Moyer. [...] 7-5, continue accucheks, A1C 9.2. Will consult clinical educator and ergonomist, nursing supervision of insulin administration and education. [...] / SEX: 62 y.o. / [id number] 1955 DATE: 10/28/17 TIME IN: 1025 [...] PATIENT ORIENTED TO:x4 FOLLOWING COMMANDS: L COMMUNICATION: [facility] COGNITIVE SCREENING: WF UE ROM / STRENGTH / COORDINATION: AROM - RIGHT: WFL STRENGTH - RIGHT: 4+/5 throughout except shoulder flex/ext, ab/ad, elbow flex/exten 3/5 AROM - LEFT:WFL STRENGTH - LEFT:4+/5 throughout except shoulder flex/ext, abd/add, elbow flex/exten 3/5 HAND DOMINANCE:right JIG GRINDER SET UP OPERATOR STRENGTH (RIGHT): good JIG GRINDER SET UP OPERATOR STRENGTH (LEFT): good RIGHT COORDINATION: intact LEFT COORDINATION: intact BALANCE: STATIC SITTING: good unsupported DYNAMIC SITTING: good- unsupported STATIC STANDING: good unsupported DYNAMIC STANDING: good- unsupported MOBILITY / TRANSFERS: TRANSFER(S): EOB to bedside chair CGA using cane, bedside chair to bed using cane CGA, would benefit from WW vs cane LIVING SKILLS: UE DRESSING (OVERALL ASSIST LEVEL):SBA {COMPONENTS PERFORMANCE: 07/26 ITEM: picker/puller shirt LOCATION:sitting EOB LE DRESSING (OVERALL ASSIST LEVEL):max A COMPONENTS PERFORMANCE: 2/5, don bilateral footies with max A, thread RLE in pants SBA, LLE thread with min A, picker/puller hips CGA for steadying ITEM:footies, elastic pants LOCATION: sitting/standing EOB THERAPY PLAN: REHAB POTENTIAL (PROGNOSIS): good PROBLEM LIST: decreased endurance and strength for ADLs and IADLs OT RECOMMENDATIONS: return home with home health SUPERVISION: intermittent BARRIERS TO DISCHARGE:pain FREQUENCY OF THERAPY: 3-5 TIMES / WEEK SHORT TERM GOALS: Multi-Disciplinary Problems (from Occupational Therapy) Active Problems Problem: OT [facility] Start Date: 10/28/17 Goal Start Date End Date [facility] 1 10/28/17 -- Goal Details: Patient will complete bathing with min A 1x using AE Goal Start Date End Date [facility] 2 10/28/17 -- Goal Details: Patient will complete LE dressing with min A using AE 1x Goal Start Date End Date [facility] 3 10/28/17 -- Goal Details: Patient will complete bed/chair/toilet transfer mod I 1x Goal Start Date End Date [facility] 4 10/28/17 -- Goal Details: Patient will verbalize 2/3 energy conservation techniques for ADLs after review of information 1x Goal Start Date End Date [facility] 5 10/28/17 -- Goal Details: [...] JOINT OSTEOARTHRITIS Electronically signed by: Maria Elena Sihn M.D. Mri Lumbar Spine Wo Contrast Result [...] is scheduled for MRIscan lumbar spine at [facility]. I will see the patient after the [...] Type of Weight Used forEstimated Protein : Modena. ?? Total Fluid Estimated Needs: 1936.5 Fluid [...] complication, without long-term current use of insulin ([facility]) History of DVT (deep vein thrombosis) History of pulmonary embolism Cancer of overlapping sites of left female breast ([facility]) 1 Low back pain with left lower [...] fit her into the MRI scan at [facility] and she reported that earlier kena attempted to get an MRI scan at [facility] and was not successful because of [...] scan performed at the open unit in [facility]. I have personally seen this MRI scan [...] - 10/27/2017 11:11 AM CDT Karly Marques [id number] Remi Garza MD Pre-Education Assessment Visit Type: Initial (This was a short visit. EMS ambulance service arrived to take patient off the floor for testing.) Introduction: ID verified Provider: Medical/Video Presentation Operator/PCP (Patient states that she recently started seeing [...] with diabetes related questions. Nydia Maciel RN, Pit Steward 10/27/2017 11:11 AM documented in this encounter [...] also noticed slight constipation secondaryto her taking Laurel 5 mg every 6 hours. Patient denies [...] venous thrombosis. Patient was discharged home with Laurel and Prednisone. Patient was admitted here from 10/22/2017 until 10/23/2017 for similar symptoms. She was discharged after 19 hours with Flexeril and Neurontin. Patient History Patient Active Problem List Diagnosis Date Noted ??? Dysuria 10/26/2017 ??? Acute left-sided low back pain with left-sided sciatica 10/23/2017 ??? Type 2 diabetes mellitus with neurologic complication, without long-term current use of insulin([facility]) 10/23/2017 ??? Essential hypertension 10/23/2017 [...] palpitations. Gastrointestinal: Positive for constipation (secondary to Laurel use). Negative for abdominal pain, diarrhea, nausea [...] Comment: Discussed patient's case with Dr. Garza, [facility] hospitalist, who accepts the patient for admission. [...] be going home with a script for Laurel. Health Behavior: ??? Understanding of discharge needs [...] given dilaudid, said that she would try Laurel next time, blood sugars still fluctuating, now [...] * POCT glucose (10/31/2017 2:08 PM CDT) [facility] Glucose, POC 151 70 - 199 mg/dL MARY JANE Blood specimen (specimen) 10/31/2017 2:08 PM CDT 10/31/2017 2:08 PM CDT Narrative MARY JANE - 10/31/2017 2:19 PM CDT us Elo Aceves MD LAB POCT ORDERABLES - DEVICE Final Result Performing Organization Address [facility]/ZIP Co de Phone Number [facility] [address] Department [place] [address] * XR Spine Lumbar 2 or 3 Views (10/31/2017 12:51 PM CDT) Narrative RAD_PACS_ - 10/31/2017 12:51 PM CDT The images from this study are not interpreted by Radiology. ??Please refer to the physician's procedure / OR operative note. us John Paul Moyer MD IMG XR PROCEDURES Fin al Result Performing Organization Address City/[facility]/ZIP Co de Phone Number RAD_PACS_ * POCT glucose (10/31/2017 7:38 AM CDT) Glucose, POC 176 70 - 199 mg/dL CERNER Blood specimen (specimen) 10/31/2017 7:38 AM CDT 10/31/2017 7:38 AM CDT Narrative CERNER - 10/31/2017 7:40 AM CDT Elo Aceves MD LAB POCT ORDERABLES - DEVICE Final Result Performing Organization Address [facility] Co de Phone Number MARY JANE [address] [facility] [place] [address] * POCT glucose (10/31/2017 2:57 AM CDT) Glucose, POC 194 70 - 199 mg/dL [facility] Blood specimen (specimen) 10/31/2017 2:57 AM CDT 10/31/2017 2:57 AM CDT Narrative [facility] - 10/31/2017 2:58 AM CDT Elo Aceves MD LAB POCT ORDERABLES - DEVICE Final Result Performing Organization Address [facility] de Phone Number MARY JANE ARNOLD [address] [place] [address] * (ABNORMAL) POCT glucose (10/30/2017 8:38 PM CDT) Glucose, POC 201(H) 70 - 199 mg/dL [facility] Blood specimen (specimen) 10/30/2017 8:38 PM CDT 10/30/2017 8:38 PM CDT Narrative CERNER - 10/30/2017 8:40 PM CDT Elo Aceves MD LAB POCT ORDERABLES - DEVICE Final Result Performing Organization Address [facility] Co de Phone Number BCPUJA ARNOLD [address] [facility] [employer] [place] [phone] * POCT glucose (10/30/2017 5:50 PM CDT) Glucose, POC 164 70 - 199 mg/dL [facility] Blood specimen (specimen) 10/30/2017 5:50 PM CDT 10/30/2017 5:50 PM CDT Narrative [facility] - 10/30/2017 5:51 PM CDT Elo Aceves MD LAB POCT ORDERABLES - DEVICE Final Result Performing Organization Address City/[facility]/ZIP Co de Phone Number MARY JANE CATALINA [address] [place] [address] * POCT glucose (10/30/2017 12:44 PM CDT) Glucose, POC 165 70 - 199 mg/dL [facility] Blood specimen (specimen) 10/30/2017 12:44 PM CDT 10/30/2017 12:44 PM CDT Narrative [facility] - 10/30/2017 12:45 PM CDT Elo Aceves MD LAB POCT ORDERABLES - DEVICE Final Result Performing Organization Address City/[facility] Co de Phone Number MARY JANE CATALINA [address] [place] [address] * POCT glucose (10/30/2017 7:37 AM CDT) Glucose, POC 178 70 - 199 mg/dL [facility] Blood specimen (specimen) 10/30/2017 7:37 AM CDT 10/30/2017 7:37 AM CDT Narrative [facility] CH - 10/30/2017 7:38 AM CDT Hipolito Phipps DO LAB POCT ORDERABLES - DEVICE Final Result MARY JANE ARNOLD [address] [facility] [place] [address] * POCT glucose (10/30/2017 3:06 AM CDT) Glucose, POC 198 70 - 199 mg/dL [facility] Blood specimen (specimen) 10/30/2017 3:06 AM CDT 10/30/2017 3:06 AM CDT Narrative BCNER - 10/30/2017 3:16 AM CDT Hipolito Brian Moise LAB POCT ORDERABLES - DEVICE Final Result Performing Organization Address [facility] de Phone Number MARY JANE ARNOLD [address] [place] [address] * (ABNORMAL) POCT glucose (10/29/2017 8:46 PM CDT) Glucose, POC 238(H) 70 - 199 mg/dL [facility] Blood specimen (specimen) 10/29/2017 8:46 PM CDT 10/29/2017 8:46 PM CDT Narrative [facility] - 10/29/2017 8:56 PM [address] [facility] POCT ORDERABLES - DEVICE Final Result Performing Organization Address [facility] de Phone Number BCPUJA ARNOLD [address] [place] [address] * POCT glucose (10/29/2017 5:53 PM CDT) Glucose, POC 149 70 - 199 mg/dL C[facility]ER Blood specimen (specimen) 10/29/2017 5:53 PM CDT 10/29/2017 5:53 PM CDT Narrative CERNER - 10/29/2017 5:54 PM [address] [facility] POCT ORDERABLES - DEVICE Final Result MARY JANE ARNOLD [address] [facility] [place] [address] * (ABNORMAL) POCT glucose (10/29/2017 12:56 PM CDT) Glucose, POC 201(H) 70 - 199 mg/dL [facility] Blood specimen (specimen) 10/29/2017 12:56 PM CDT 10/29/2017 12:56 PM CDT Narrative [facility] - 10/29/2017 12:58 PM CDT Hipolito Phipps DO LAB POCT ORDERABLES - DEVICE Final Result Performing Organization Address [facility] Co de Phone Number MARY JANE ARNOLD [address] [facility] [place] [address] * POCT glucose (10/29/2017 7:59 AM CDT) Glucose, POC 174 70 - 199 mg/dL [facility] Blood specimen (specimen) 10/29/2017 7:59 AM CDT 10/29/2017 7:59 AM CDT Narrative [facility] - 10/29/2017 8:15 AM CDT us Hipolito Phipps DO LAB POCT ORDERABLES - DEVICE Final Result Performing Organization Address [facility] de Phone Number MARY JANE ARNOLD [address] [place] [address] * (ABNORMAL) POCT glucose (10/29/2017 2:39 AM CDT) Glucose, POC 236(H) 70 - 199 mg/dL C[facility]ER Blood specimen (specimen) 10/29/2017 2:39 AM CDT 10/29/2017 2:39 AM CDT Narrative [facility] - 10/29/2017 2:41 AM CDT Elo Aceves MD LAB POCT ORDERABLES - DEVICE Final Result Performing Organization Address [facility] de Phone Number MARY JANE ARNOLD [address] [place], [place] [id number] * (ABNORMAL) POCT glucose (10/28/2017 8:15 PM CDT) Glucose, POC 208(H) 70 - 199 mg/dL [facility] Blood specimen (specimen) 10/28/2017 8:15 PM CDT 10/28/2017 8:15 PM CDT Narrative [facility] CH - 10/28/2017 8:18 PM CDT Elo Aceves MD LAB POCT ORDERABLES - DEVICE Final Result Performing Organization Address [facility] Co de Phone Number MARY JANE ARNOLD [address] [place] [address] * POCT glucose (10/28/2017 5:49 PM CDT) Glucose, POC 168 70 - 199 mg/dL [facility] Blood specimen (specimen) 10/28/2017 5:49 PM CDT 10/28/2017 5:49 PM CDT Narrative CERNER - 10/28/2017 5:51 PM CDT Elo Aceves MD LAB POCT ORDERABLES - DEVICE Final Result Performing Organization Address [facility] de Phone Number MARY JANE [address] [place] [address] * (ABNORMAL) POCT glucose (10/28/2017 12:43 PM CDT) Glucose, POC 277(H) 70 - 199 mg/dL [facility] Blood specimen (specimen) 10/28/2017 12:43 PM CDT 10/28/2017 12:43 PM CDT Narrative [facility] CH - 10/28/2017 12:44 PM CDT Elo Aceves MD LAB POCT ORDERABLES - DEVICE Final Result Performing Organization Address [facility] Co de Phone Number MARY JANE ARNOLD [address] [facility] [place] [address] * (ABNORMAL) Urinalysis, microscopic only (10/28/2017 8:18 [...] inal Result Performing Organization Address [facility] de Phone Number MARY JANE ARNOLD [address] [facility] [place] [address] * (ABNORMAL) Urinalysis reflex to microscopic and [...] tendency for uric acid stone formation. Source: [facility]. Last revised 05-04-2017 us Remi Garza MD LAB MICROBIOLOGY - GEN ERAL ORDERABLES Final Result Performing Organization Address [facility] Co de Phone Number [facility] [address] [facility] [place] [address] * POCT glucose (10/28/2017 7:46 AM CDT) Glucose, POC 155 70 - 199 mg/dL [facility] Blood specimen (specimen) 10/28/2017 7:46 AM CDT 10/28/2017 7:46 AM CDT Narrative [facility] - 10/28/2017 7:55 AM CDT Elo Aceves MD LAB POCT ORDERABLES - DEVICE Final Result Performing Organization Address [facility] de Phone Number [facility] [address] [place] [address] * (ABNORMAL) POCT glucose (10/28/2017 3:27 AM CDT) Glucose, POC 205(H) 70 - 199 mg/dL [facility] Blood specimen (specimen) 10/28/2017 3:27 AM CDT 10/28/2017 3:27 AM CDT Narrative BCNER - 10/28/2017 3:29 AM CDT Elo Aceves MD LAB POCT ORDERABLES - DEVICE Final Result Performing Organization Address [facility]/ZIP Co de Phone Number MARY JANE ARNOLD [address] [facility] [place] [address] * (ABNORMAL) POCT glucose (10/27/2017 8:18 PM CDT) Glucose, POC 297(H) 70 - 199 mg/dL [facility] Blood specimen (specimen) 10/27/2017 8:18 PM CDT 10/27/2017 8:18 PM CDT Narrative CERNER - 10/27/2017 8:20 PM CDT Elo Aceves MD LAB POCT ORDERABLES - DEVICE Final Result Performing Organization Address [facility] Co de Phone Number MARY JANE ARNOLD [address] [place] [address] * (ABNORMAL) POCT glucose (10/27/2017 5:30 PM CDT) Glucose, POC 245(H) 70 - 199 mg/dL [facility] Blood specimen (specimen) 10/27/2017 5:30 PM CDT 10/27/2017 5:30 PM CDT Narrative [facility] - 10/27/2017 5:35 PM CDT Elo Aceves MD LAB POCT ORDERABLES - DEVICE Final Result Performing Organization Address [facility] Co de Phone Number MARY JANE ARNOLD [address] [place] [address] * POCT glucose (10/27/2017 1:08 PM CDT) Glucose, POC 190 70 - 199 mg/dL [facility] Blood specimen (specimen) 10/27/2017 1:08 PM CDT 10/27/2017 1:08 PM CDT Narrative [facility] - 10/28/2017 3:46 AM CDT us Elo Aceves MD LAB POCT ORDERABLES - DEVICE Final Result MARY JANE ARNOLD [address] Department [place] [address] * MRI Lumbar Spine WO Contrast (10/27/2017 [...] by: Melvin Knight M.D. Elo Aceves MD [facility] MRI PROCEDURES Final Result * (ABNORMAL) POCT glucose (10/27/2017 7:49 AM CDT) Glucose, POC 317(H) 70 - 199 mg/dL MARY JANE ARNOLD Blood specimen (specimen) 10/27/2017 7:49 AM CDT 10/27/2017 7:49 AM CDT Narrative MARY JANE ARNOLD - 10/27/2017 8:24 AM CDT Elo Aceves MD LAB POCT ORDERABLES - DEVICE Final Result Performing Organization Address [facility] Co de Phone Number MARY JANE [address] [facility] [place] [address] * (ABNORMAL) Hemoglobin A1c (10/27/2017 6:29 AM CDT) Hgb A1C 9.2(H) 4.0 - 6.0 % MARY JANE Comment: Interpretive Data Hemoglobin A1c ADA Interpretive Guidelines ??<7% ?? Glycemia controlled ??>8% ?? Hyperglycemia, additional action recommended Lizandro Immunochemical Method Current interpretive data was last revised on 2015 Testing performed by: [facility], [place] [address] Estimated Average Glucose 217 mg/dL MARY JANE Comment:Testing performed by : [facility], [place] [address] Blood specimen (specimen) 10/27/2017 6:29 AM CDT 10/28/2017 10:34 AM CDT Narrative MARY JANE - 10/28/2017 11:43 AM CDT Please add to labs done today Elo Aceves MD LAB BLOOD ORDERABLE S Final Result Performing Organization Address [facility] de Phone Number [facility] [address] [place] [address] * eGFR (10/27/2017 6:29 AM [...] ??mL/min/1.73m2 *Relative to young adult level If -Maltese multiply value by 1.16. Estimated glomerular filtration [...] AM CDT 10/27/2017 6:46 AM CDT Narrative [facility] - 10/27/2017 7:07 AM CDT us Remi Garza MD LAB BLOOD ORDERABLES F inal Result [facility] [address] Department [place] [address] * (ABNORMAL) Differential, auto (10/27/2017 6:29 AM CDT) Neutrophil abs 6.2 1.7 - 6.5 K/cumm [facility] Imm gran abs 0.0 0.0 - 0.1 K/cumm [facility] Lymphocyte abs 3.1 0.8 - 3.3 K/cumm [facility] Monocyte abs 0.9(H) 0.2 - 0.8 K/cumm [facility] Eosinophil abs 0.1 0.0 - 0.5 K/cumm [facility] Basophil abs 0.0 0.0 - 0.1 K/cumm [facility] Neutrophil pct 60.0 % [facility] Comment: Interpretive Data Percent cell count reference ranges are not reported, since discordance with absolute values may lead to misinterpretation of CBC data. Current Interpretive Data was last revised on 2017. Imm gran pct 0.4 % [facility] Comment: Interpretive Data Percent cell count reference ranges are not reported, since discordance with absolute values may lead to misinterpretation of CBC data. Current Interpretive Data was last revised on 2017. Lymphocyte pct 29.5 % [facility] Comment: Interpretive Data Percent cell count reference ranges are not reported, since discordance with absolute values may lead to misinterpretation of CBC data. Current Interpretive Data was last revised on 2017. Monocyte pct 8.7 % [facility] Comment: Interpretive Data Percent cell count reference ranges are not reported, since discordance with absolute values may lead to misinterpretation of CBC data. Current Interpretive Data was last revised on 2017. Eosinophil pct 1.0 % [facility] Comment: Interpretive Data Percent cell count reference ranges are not reported, since discordance with absolute values may lead to misinterpretation of CBC data. Current Interpretive Data was last revised on 2017. Basophil pct 0.4 % [facility] Comment: Interpretive Data Percent cell count reference ranges are not reported, since discordance with absolute values may lead to misinterpretation of CBC data. Current Interpretive Data was last revised on 2017. Blood specimen (specimen) 10/27/2017 6:29 AM CDT 10/27/2017 6:46 AM CDT Johnathan HINTON - 10/27/2017 6:49 AM CDT Remi Garza MD LAB BLOOD ORDERABLES F inal Result MARY JANE [address] Department [place] [address] * (ABNORMAL) Magnesium (10/27/2017 6:29 AM CDT) Magnesium 1.7(L) 1.8 - 2.6 mg/dL MARY JANE Blood specimen (specimen) 10/27/2017 6:29 AM CDT 10/27/2017 6:46 AM CDT Johnathan HINTON - 10/27/2017 7:07 AM CDT Remi Garza MD LAB BLOOD ORDERABLES F inal Result Performing Organization Address City/[facility]/ZIP Co de Phone Number MARY JANE ARNOLD [address] [employer] [place], [place] [phone] * (ABNORMAL) Basic metabolic panel (10/27/2017 6:29 AM CDT) Pathologist [facility] Sodium 133(L) 135 - 145 mmol/L [facility] Potassium, pl 4.3 3.5 - 5.1 mmol/L [facility] Chloride 101 100 - 114 mmol/L [facility] CO2 27 22 - 32 mmol/L [facility] [facility] Anion gap 9 8 - 16 mmol/L [facility] BUN 20 8 - 24 mg/dL [facility] Creatinine 0.82 0.60 - 1.30 mg/dL [facility] Glucose 349(H) 70 - 199 mg/dL [facility] Comment: Interpretive Data Fasting glucose [...] 2017. Calcium 9.0 8.4 - 10.5 mg/dL [facility] Blood specimen (specimen) 10/27/2017 6:29 AM CDT 10/27/2017 6:46 AM CDT Narrative [facility] - 10/27/2017 7:07 AM CDT Remi Garza MD LAB BLOOD ORDERABLES F inal Result Performing Organization Address City/[facility]/ZIP Co de Phone Number MARY JANE ARNOLD [address] [place] [address] * (ABNORMAL) CBC with auto differential (10/27/2017 6:29 AM CDT) WBC 10.4(H) 3.8 - 9.9 K/cumm [facility] RBC 3.87(L) 3.90 - 5.20 M/cumm [facility] Hgb 10.5(L) 11.9 - 15.5 g/dL [facility] Hct 34.8(L) 35.6 - 45.5 % [facility] MCV 89.9 81.3 - 96.4 fL [facility] MCH 27.1 27.1 - 33.3 pg [facility] MCHC 30.2(L) 32.3 - 35.7 g/dL [facility] RDW CV 14.9 11.1 - 14.9 % [facility] RDW SD 49.5(H) 35.7 - 48.1 fL [facility] Plt 274 150 - 400 K/cumm [facility] MPV 10.2 9.1 - 12.3 fL [facility] NRBC abs 0.00 0.00 - 0.01 K/cumm [facility] Blood specimen (specimen) 10/27/2017 6:29 AM CDT 10/27/2017 6:46 AM CDT Narrative [facility] - 10/27/2017 6:49 AM CDT us Remi Garza MD LAB BLOOD ORDERABLES F inal Result Performing Organization Address [facility]/ZIP Co de Phone Number [facility] [address] Department [place] [address] * (ABNORMAL) POCT glucose (10/27/2017 4:41 AM CDT) Pathologist [facility] Glucose, POC 360(H) 70 - 199 mg/dL [facility] Blood specimen (specimen) 10/27/2017 4:41 AM CDT 10/27/2017 4:41 AM CDT Narrative [facility] - 10/27/2017 4:42 AM CDT Elo Aceves MD LAB POCT ORDERABLES - DEVICE Final Result MARY JANE ARNOLD [address] [place] [address] * (ABNORMAL) POCT glucose (10/26/2017 9:09 PM CDT) Glucose, POC 408(H) 70 - 199 mg/dL [facility] Blood specimen (specimen) 10/26/2017 9:09 PM CDT 10/26/2017 9:09 PM CDT Narrative [facility] - 10/26/2017 9:10 PM CDT Elo Aceves MD LAB POCT ORDERABLES - DEVICE Final Result Performing Organization Address City/[facility]/ZIP Co de Phone Number MARY JANE ARNOLD [address] [place] [address] * (ABNORMAL) POCT glucose (10/26/2017 9:05 PM CDT) Glucose, POC 420(H) 70 - 199 mg/dL [facility] Blood specimen (specimen) 10/26/2017 9:05 PM CDT 10/26/2017 9:05 PM CDT Narrative [facility] - 10/26/2017 9:06 PM CDT Elo Aceves MD LAB POCT ORDERABLES - DEVICE Final Result Performing Organization Address City/[facility]/ZIP Co de Phone Number MARY JANE ARNOLD [address] [place] [address] * (ABNORMAL) POCT glucose (10/26/2017 5:48 PM CDT) Glucose, POC 318(H) 70 - 199 mg/dL [facility] Blood specimen (specimen) 10/26/2017 5:48 PM CDT 10/26/2017 5:48 PM CDT Narrative [facility] - 10/26/2017 5:52 PM CDT Elo Aceves MD LAB POCT ORDERABLES - DEVICE Final Result Performing Organization Address [facility] de Phone Number [facility] [address] [facility] [place] [address] * (ABNORMAL) POCT glucose (10/26/2017 12:16 PM CDT) Glucose, POC 357(H) 70 - 199 mg/dL [facility] Blood specimen (specimen) 10/26/2017 12:16 PM CDT 10/26/2017 12:16 PM CDT Narrative MARY JANE - 10/26/2017 12:22 PM CDT Elo Aceves MD LAB POCT ORDERABLES - DEVICE Final Result Performing Organization Address [facility] de Phone Number [facility] [address] [facility] [place] [address] * (ABNORMAL) POCT glucose (10/26/2017 8:06 AM CDT) Glucose, POC 380(H) 70 - 199 mg/dL [facility] Blood specimen (specimen) 10/26/2017 8:06 AM CDT 10/26/2017 8:06 AM CDT Narrative MARY JANE - 10/26/2017 8:09 AM CDT Elo Aceves MD LAB POCT ORDERABLES - DEVICE Final Result Performing Organization Address [facility] de Phone Number [facility] [address] [facility] [place] [address] * eGFR (10/26/2017 7:38 AM CDT) eGFR 78 mL/min/1.7 3 m2 [facility] Comment: Interpretive Data Reference Interval Normal ?>/= 90 mL/min/1.73m2 Mildly decreased* ? 60 - 89 mL/min/1.73m2 Mildly to moderately decreased ?45 - 59 mL/min/1.73m2 Moderately to severely decreased ??30 - 44 mL/min/1.73m2 Severely decreased ?15 - 29 mL/min/1.73m2 Kidney Failure ?< 15 ??mL/min/1.73m2 *Relative to young adult level If -Maltese multiply value by 1.16. Estimated glomerular filtration [...] BLOOD ORDERABLES F inal Result MARY JANE [address] Department [place] [address] * (ABNORMAL) Differential, auto (10/26/2017 7:38 AM CDT) Neutrophil abs 6.5 1.7 - 6.5 K/cumm [facility] Imm gran abs 0.0 0.0 - 0.1 K/cumm [facility] Lymphocyte abs 1.1 0.8 - 3.3 K/cumm [facility] Monocyte abs 0.0(L) 0.2 - 0.8 K/cumm [facility] Eosinophil abs 0.0 0.0 - 0.5 K/cumm [facility] Basophil abs 0.0 0.0 - 0.1 K/cumm [facility] Neutrophil pct 83.9 % [facility] Comment: Interpretive Data Percent cell count reference ranges are not reported, since discordance with absolute values may lead to misinterpretation of CBC data. Current Interpretive Data was last revised on 2017. Imm gran pct 0.6 % [facility] Comment: Interpretive Data Percent cell count reference ranges are not reported, since discordance with absolute values may lead to misinterpretation of CBC data. Current Interpretive Data was last revised on 2017. Lymphocyte pct 14.5 % [facility] Comment: Interpretive Data Percent cell count reference ranges are not reported, since discordance with absolute values may lead to misinterpretation of CBC data. Current Interpretive Data was last revised on 2017. Monocyte pct 0.6 % [facility] Comment: Interpretive Data Percent cell count reference ranges are not reported, since discordance with absolute values may lead to misinterpretation of CBC data. Current Interpretive Data was last revised on 2017. Eosinophil pct 0.1 % [facility] Comment: Interpretive Data Percent cell count reference ranges are not reported, since discordance with absolute values may lead to misinterpretation of CBC data. Current Interpretive Data was last revised on 2017. Basophil pct 0.3 % [facility] Comment: Interpretive Data Percent cell count reference ranges are not reported, since discordance with absolute values may lead to misinterpretation of CBC data. Current Interpretive Data was last revised on 2017. Blood specimen (specimen) 10/26/2017 7:38 AM CDT 10/26/2017 7:54 AM CDT Narrative [facility] - 10/26/2017 8:02 AM CDT us Remi Garza MD LAB BLOOD ORDERABLES F inal Result [facility] [address] Department [place] [address] * (ABNORMAL) Magnesium (10/26/2017 7:38 AM CDT) Magnesium 1.7(L) 1.8 - 2.6 mg/dL MARY JANE Blood specimen (specimen) 10/26/2017 7:38 AM CDT 10/26/2017 7:54 AM CDT Narrative [facility] - 10/26/2017 8:15 AM CDT Remi Garza MD LAB BLOOD ORDERABLES F inal Result Performing Organization Address City/[facility]/ZIP Co de Phone Number [facility] [address] Department [place] [address] * (ABNORMAL) Basic metabolic panel (10/26/2017 7:38 AM CDT) Sodium 133(L) 135 - 145 mmol/L [facility] Potassium, pl 4.6 3.5 - 5.1 mmol/L [facility] Chloride 102 100 - 114 mmol/L [facility] CO2 23 22 - 32 mmol/L [facility] Anion gap 13 8 - 16 mmol/L [facility] BUN 17 8 - 24 mg/dL [facility] Creatinine 0.81 0.60 - 1.30 mg/dL [facility] Glucose 414(H) 70 - 199 mg/dL [facility] Comment: Interpretive Data Fasting glucose [...] AM CDT 10/26/2017 7:54 AM CDT Narrative [facility] - 10/26/2017 8:15 AM CDT Remi Garza MD LAB BLOOD ORDERABLES F inal Result MARY JANE ARNOLD [address] Department of Laboratories [place], [place] [id number] * (ABNORMAL) CBC with auto differential (10/26/2017 7:38 AM CDT) WBC 7.8 3.8 - 9.9 K/cumm [facility] RBC 4.19 3.90 - 5.20 M/cumm [facility] Hgb 11.6(L) 11.9 - 15.5 g/dL [facility] Hct 36.6 35.6 - 45.5 % [facility] MCV 87.4 81.3 - 96.4 fL [facility] MCH 27.7 27.1 - 33.3 pg [facility] MCHC 31.7(L) 32.3 - 35.7 g/dL [facility] RDW CV 14.6 11.1 - 14.9 % [facility] RDW SD 46.7 35.7 - 48.1 fL [facility] Plt 294 150 - 400 K/cumm [facility] MPV 9.8 9.1 - 12.3 fL [facility] NRBC abs 0.00 0.00 - 0.01 K/cumm [facility] Blood specimen (specimen) 10/26/2017 7:38 AM CDT 10/26/2017 7:54 AM CDT Narrative [facility] - 10/26/2017 8:02 AM CDT Remi Garza MD LAB BLOOD ORDERABLES F inal Result Performing Organization Address [facility] Co de Phone Number MARY JANE ARNOLD [address] Department [place] [address] * aPTT (10/26/2017 7:38 AM CDT) aPTT 32.6 25.0 - 37.0 sec [facility] Blood specimen (specimen) 10/26/2017 7:38 AM CDT 10/26/2017 7:54 AM CDT Narrative [facility] - 10/26/2017 8:17 AM CDT Remi Garza MD LAB BLOOD ORDERABLES F inal Result Performing Organization Address [facility] de Phone Number MARY JANE ARNOLD [address] [facility] [place] [address] * Protime-INR (10/26/2017 7:38 AM CDT) PT 12.8 9.5 - 13.0 sec [facility] INR 1.13 0.90 - 1.20 [facility] Blood specimen (specimen) 10/26/2017 7:38 AM CDT 10/26/2017 7:54 AM CDT Narrative [facility] - 10/26/2017 8:14 AM CDT Remi Garza MD LAB BLOOD ORDERABLES F inal Result Performing Organization Address [facility] de Phone Number MARY JANE ARNOLD [address] [address] [facility] [place] [address] * (ABNORMAL) POCT glucose (10/26/2017 4:57 AM CDT) Glucose, POC 439(H) 70 - 199 mg/dL [facility] Blood specimen (specimen) 10/26/2017 4:57 AM CDT 10/26/2017 4:57 AM CDT Narrative [facility] - 10/26/2017 5:18 AM CDT Remi Garza MD LAB POCT ORDERABLES - DEVICE Final Result Performing Organization Address [facility] de Phone Number MARY JANE ARNOLD [address] [facility] [place] [address] * (ABNORMAL) POCT glucose (10/26/2017 2:09 AM CDT) Glucose, POC 315(H) 70 - 199 mg/dL [facility] Blood specimen (specimen) 10/26/2017 2:09 AM CDT 10/26/2017 2:09 AM CDT Narrative MARY JANE ARNOLD - 10/26/2017 2:11 AM CDT us Notinfile Unknown LAB POCT ORDERABLES - DEVICE F inal Result MARY JANE ARNOLD [address] Department [place] [address] documented in this encounter Visit Diagnoses Not [...] not taking anymore)2100 (Given - Provider: Klarissa Melchor, NURIS) 0914 (Not Given - Provider: Jo [...] 2 puff, inhalation, Every 4 hours PRN (respiratory therapist assistant), wheezing, Starting on Mon10/26/17 at 0456, Indications: [...] 10/26/2017 documented in this encounter Care Teams Security Flex Utility Officer Relationship Specialty Start Date End Date Justen Gale MD [address] [facility] [address] [place] [address] PCP - General 10/09/17 Liu Jerez MD Consulting Physician Gastroenterology 07/28/17 [place] [address] [address] [facility] [address] [place] [address] Consulting Physician Pulmonary Disease 08/03/17 Khris Arthur MD [address] [facility] [address] [place] [address] Medical Oncologist/Band Log Mill And Carriage Operator Medical Oncology 10/23/[address] [place] [address] [facility] [address] [place] [address] Surgeon Orthopedic Surgery 10/23/17 [place] [address] [facility] [address] [place] [address] Consulting Physician Pain Management 10/23/17 documented as of this encounter
--- OUTSIDE RECORDS SUMMARY | 2024-04-26 09:30 | XMS_ITS | Encounter Summary ---
Author Organization [facility] Address [address] [address] Care Team Providers Care Ophthalmic Nurse Name Role Phone Lavonne Hathaway MD Primary Care Provider [phone] Liu Jerez MD Unavailable [phone] Albert Corbin MD Unavailable [phone] Encounter Details Date Type Department Care Team (Late st Contact Info) Description 08/10/2017 Telephone [facility] [address], [place] [address] Dominique Hawkins RMA Social History Tobacco Use Types Packs/Day Years Used Date Smoking Tobacco: Former Smokeless Tobacco: Never Alcohol Use Standard Drinks/Week Comments No 0 (1 standard drink = 0.6 oz pur e alcohol) Comments No Sex and Gender Information Value Date Recorded Sex Assigned at Not on file 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
--- OUTSIDE RECORDS SUMMARY | 2024-04-26 09:30 | XMS_ITS | Encounter Summary ---
Author Organization [facility] Address [address] [place] [address] Care Team Providers Care Chartered Wealth Manager Name Role Phone Lavonne Hathaway MD Primary Care Provider [phone] Liu Jerez MD Unavailable Albert Corbin MD Unavailable Encounter Details Date Type Department Care Team (Latest Contact Info) Description 08/15/2017 12:35 AM CDT - 08/15/2017 11:59 PM CDT Hospital Encounter [facility] [address] [place] [address] [place] [address] [facility] [address] [place] [id number] Discharge Disposition: Discharge to home or self care Social History Tobacco Use Types Packs/Day Years Used Date Smoking Tobacco: Former Smokeless Tobacco: Never Alcohol Use Standard Drinks/Week Comments No 0 (1 standard drink = 0.6 oz pur e alcohol) Comments No Sex and Gender Information Value Date Recorded Sex Assigned at Not on file 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
--- OUTSIDE RECORDS SUMMARY | 2024-04-26 09:30 | XMS_ITS | Encounter Summary ---
Author Organization [facility] Healthcare Address [address] [place] [address] Care Team Providers Care Broadcast Operations Director Name Role Phone Lavonne Hathaway MD Primary Care Provider [phone] Liu Jerez MD Unavailable Albert Corbin MD Unavailable Reason for Visit * Reason Comments Cough I been sick since last week, went to my doctor they said I have RSV and having alot of abdominal pain. 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 * Acute Bronchitis (AfterCare(R) Instructions(ER/ED)) (Georgian) * Costochondritis (Gang Bore Operator) (Georgian) * Asthma (Gang Bore Operator) (Georgian) documented in this encounter Medications at [...] or COPD. The patient [facility]Dr. [facility] for [facility] treatment. Per [...] ED Course User Index [BM] Demarcus Campoverde [facility] Number of Diagnoses or Management Options [...] words and actions. Devonte Cruz MD 08/15/17 7077 documented in this encounter Miscellaneous Notes * [...] Interpretation: Interpretation: non-specific Devonte Cruz MD 08/14/17 9325 documented in this encounter Plan of Treatment [...] is made with the study of 08/03/2017. ??Campus President radiograph demonstrates no acute findings. ??Surgical changes [...] is made with the study of 08/03/2017. Campus President radiograph demonstrates no acute findings. Surgical changes [...] CALCULUS. NO ACUTE FINDINGS. RESULTS CALLED BY [employer] Electronically signed by: Manohar Quigley M.D. Devonte [...] MD LAB URINE ORDERABLES F inal Result [facility] [address] [place] [address] * (ABNORMAL) Urinalysis reflex to microscopic and [...] MICROBIOLOGY - GEN ERAL ORDERABLES Final Result [facility] [address] [place] [address] * XR Chest 1 Vw (08/15/2017 12:42 [...] MD LAB BLOOD ORDERABLES F inal Result [facility] [place] [address] [address] [place] [address] * eGFR (08/14/2017 10:06 PM CDT) [facility] eGFR 78 mL/min/1.7 3 m2 MARY [...] MD LAB BLOOD ORDERABLES F inal Result [facility] [address] [place] [address] * (ABNORMAL) Differential, auto (08/14/2017 10:06 PM CDT) Neutrophil abs 7.6(H) 1.7 - 6.5 K/cumm [facility] Imm gran abs 0.1 0.0 - 0.1 K/cumm [facility] Lymphocyte abs 3.0 0.8 - 3.3 K/cumm [facility] Monocyte abs 1.1(H) 0.2 - 0.8 K/cumm [facility] Eosinophil abs 0.5 0.0 - 0.5 K/cumm [facility] Basophil abs 0.0 0.0 - 0.1 K/cumm [facility] Neutrophil pct 62.0 % [facility] Comment: Interpretive Data Percent cell count reference ranges are not reported, since discordance with absolute values may lead to misinterpretation of CBC data. Current Interpretive Data was last revised on 2017. Imm gran pct 0.6 % [facility] Comment: Interpretive Data Percent cell count reference ranges are not reported, since discordance with absolute values may lead to misinterpretation of CBC data. Current Interpretive Data was last revised on 2017. Lymphocyte pct 24.5 % [facility] Comment: Interpretive Data Percent cell count reference ranges are not reported, since discordance with absolute values may lead to misinterpretation of CBC data. Current Interpretive Data was last revised on 2017. Monocyte pct 8.8 % [facility] Comment: Interpretive Data Percent cell count reference ranges are not reported, since discordance with absolute values may lead to misinterpretation of CBC data. Current Interpretive Data was last revised on 2017. Eosinophil pct 3.7 % [facility] Comment: Interpretive Data Percent cell count reference ranges are not reported, since discordance with absolute values may lead to misinterpretation of CBC data. Current Interpretive Data was last revised on 2017. Basophil pct 0.4 % [facility] [...] ORDERABLES F inal Result Performing Organization Address [facility] Co de Phone Number MARY JANE ARNOLD [address] [place] [address] * Troponin I (08/14/2017 10:06 PM CDT) [facility] Troponin I <0.03 0.00 - 0.14 ng/mL [facility] Comment: Interpretive Data Normal: ? 0.00 - 0.14 ng/mL Indeterminate: ?0.15 - 0.50 ng/mL [place] / Cardiac Muscle Damage: ? >0.50 ng/mL Current interpretive data was last reviewed 2015 Blood specimen (specimen) 08/14/2017 10:06 PM CDT 08/14/2017 10:30 PM CDT Narrative MARY JANE - 08/14/2017 11:06 PM CDT Devonet Cruz MD LAB BLOOD ORDERABLES F inal Result Performing Organization Address [facility] Co de Phone Number [facility] [place] [address] [address] [place] [address] * (ABNORMAL) Comprehensive metabolic panel (08/14/2017 10:06 PM CDT) Pathologist [facility] Sodium 133(L) 135 - 145 mmol/L [facility] Potassium, pl 4.2 3.5 - 5.1 mmol/L [facility] CO2 24 22 - 32 mmol/L [facility] [...] Anion gap 12 8 - 16 mmol/L [facility] [place] Blood specimen (specimen) 08/14/2017 10:06 PM CDT 08/14/2017 10:30 PM CDT Narrative [facility] - 08/14/2017 10:51 PM CDT Devonte Cruz MD LAB BLOOD ORDERABLES F inal Result [facility] [place] [address] [address] [place] [address] * (ABNORMAL) CBC with auto differential (08/14/2017 10:06 PM CDT) WBC 12.3(H) 3.8 - 9.9 K/cumm [facility] RBC 4.53 3.90 - 5.20 M/cumm [facility] Hgb 12.2 11.9 - 15.5 g/dL [facility] Hct 39.7 35.6 - 45.5 % [facility] MCV 87.6 81.3 - 96.4 fL [facility] MCH 26.9(L) 27.1 - 33.3 pg [facility] MCHC 30.7(L) 32.3 - 35.7 g/dL [facility] CH RDW CV 15.2(H) 11.1 - 14.9 % [facility] RDW SD 48.6(H) 35.7 - 48.1 fL [facility] Plt 371 150 - 400 K/cumm [facility] MPV 9.8 9.1 - 12.3 fL [facility] NRBC abs 0.00 0.00 - 0.01 K/cumm [facility] Blood specimen (specimen) 08/14/2017 10:06 PM CDT 08/14/2017 10:30 PM CDT Narrative [facility] - 08/14/2017 10:54 PM CDT us Devonte Cruz MD LAB BLOOD ORDERABLES F inal Result [facility] [address] [address] [place] [address] * XR Chest 1 Vw [...] 7:49 PM CDT) Patient age 62 years [facility] Interpretation Text SINUS RHYTHM WITH SHORT IL INTERVALBORDERLINE ECGPREVIOUS TRACIN08/01/2017 12.34No significant changes noted [facility] Comment:Physician Interprete r Dr. Opal Koo M.D. Ventricular Rate EKG/Min 97 /min [facility] P Wave Duration 96 ms [facility] QRS-Interval (MSEC) 77 ms [facility] IL-Interval (MSEC) 119 ms [facility] QT Interval 330 ms [facility] QTc 394 ms [facility] QTC Interval ms [facility] P Elma 38 deg [facility] QRS Elma 14 deg [facility] T Elma 55 deg [facility] 08/14/2017 7:49 PM CDT Devonte Cruz MD ECG ORDERABLES Final Result [facility] documented in this encounter Visit Diagnoses Diagnosis Acute bronchitis, unspecified organism- Primary Mild reactive airways disease, unspecified whether persistent Costochondritis, acute documented in this encounter Administered Medications Inactive Administered Medications - up to 3 most recent administrations Medication Order MAR Action Action Date Dose Rate Site albuterol (PROVENTIL,VENTOLIN) 2.5 mg/0.5 mL nebulizer solution 2.5 mg 2.5 mg, nebulization, Once (respiratory supervisor), On 08/14/17 at 1945, For 1 dose, [...] 3 mL, nebulization, Every 4 hours PRN (respiratory supervisor), wheezing, shortness of breath, Starting on Mon08/14/17 [...] 2.5 mg (COMPLETED) 2.5 mg, nebulization, Once (respiratory supervisor), On Mon08/14/17 at 1945, For 1 dose, Indications: COPD Exacerbation 2002 (Given - Provider: Cem Lucero, SERVICE CORRESPONDENT) azithromycin (ZITHROMAX) tablet 500 mg (COMPLETED) 500 mg, oral, Once, On Mon08/15/17 at 0115, For 1 dose, Indications: Upper Respiratory/HEENT Infection 0125 (Given - Provid er: Farzaneh Birmingham RN) HYDROcodone-acetaminophen (NORCO) 5-325 mg per [...] Bronchospasms 233 (Given - Provider: Cem Lucero, SERVICE CORRESPONDENT) methylPREDNISolone sodium succinate (SOLU-medrol) preservative free injection [...] 3 mL, nebulization, Every 4 hours PRN (respiratory supervisor), wheezing, shortness of breath, Starting on 08/14/17 at 2003, Indications: COPD Exacerbation documented in this encounter Orders Medications Ordered That Tyler ht Not Have Been Administered Count Last Ordered Date First Ordered Date ipratropium-albuterol (DUO-N EB) 0.5-2.5 mg/3 mL nebulizer solution 3 mL 1 08/14/2017 documented in this encounter Care Teams Broadcast Operations Director Relationship Specialty Start Date End Date Lavonne Hathaway MD [facility] [place] [address] PCP - General 08/16/16 08/17/17 Liu Jerez MD [facility] [place] [address] Consulting Physician Gastroenterology 07/28/17 [place] [address] [facility] [address] [place] [address] Consulting Physician Pulmonary Disease 08/03/17 documented as of this encounter
--- OUTSIDE RECORDS SUMMARY | 2024-04-26 09:30 | XMS_ITS | Encounter Summary ---
Author Organization [facility] Healthcare Address [address] [place] [address] Care Team Providers Care Fire Extinguisher Inspector Name Role Phone Lavonne Hathaway MD Primary Care Provider [phone] Liu Jerez MD Unavailable [phone] Albert Corbin MD Unavailable [phone] Encounter Details Date Type Department Care Team (Latest Contact Info) Description 08/14/2017 7:50 PM CDT - 08/14/2017 10:46 PM CDT Hospital Encounter [facility] Diagnostic Imaging [address] [place], [place] [id number] Discharge Disposition: Discharge to home or self care Social History Tobacco Use Types Packs/Day Years Used Date Smoking Tobacco: Former Smokeless Tobacco: Never Alcohol Use Standard Drinks/Week Comments No 0 (1 standard drink = 0.6 oz pur e alcohol) Comments No Sex and Gender Information Value Date Recorded Sex Assigned at Not on file 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 Gender Identity Not on file Sexual [...] on filedocumented in this encounter Care Teams Fire Extinguisher Inspector Relationship Specialty Start Date End Date Lavonne Hathaway MD [facility] [place] [address] PCP - General 08/16/16 08/17/17 Liu Jerez MD [facility] [address] Consulting Physician Gastroenterology 07/28/17 [place] [address] [facility] [address] [place] [address] Consulting Physician Pulmonary Disease 08/03/17 documented as of this encounter
--- OUTSIDE RECORDS SUMMARY | 2024-04-26 09:30 | XMS_ITS | Encounter Summary ---
Author Organization [facility] Healthcare Address [address] [place] [address] Care Team Providers Care Clinical Faculty Name Role Phone Liu Jerez MD Unavailable Albert Corbin MD Unavailable Justen Gale MD Primary Care Provider Encounter Details Date Type Department Care Team (Late st Contact Info) Description 08/18/2017 4:14 PM CDT - 08/18/2017 11:59 PM T Hospital Encounter [facility] Diagnostic Imaging [address] [place] [address] [place] [address] [facility] [place] [address] Discharge Disposition: Discharge to home or self care Social History Tobacco Use Types Packs/Day Years Used Date Smoking Tobacco: Former Smokeless Tobacco: Never Alcohol Use Standard Drinks/Week Comments No 0 (1 standard drink = 0.6 oz pur e alcohol) Comments No Sex and Gender Information Value Date Recorded Sex Assigned at Not on file 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
--- OUTSIDE RECORDS SUMMARY | 2024-04-26 09:30 | XMS_ITS | Encounter Summary ---
Author Organization [facility] Healthcare Address [address] [place] [address] Care Team Providers Care Architecture Department Chair Name Role Phone Liu Jerez MD Unavailable Albert Corbin MD Unavailable Justen Gale MD Primary Care Provider Khris Arthur MD Unavailable [phone] Ko Melendez MD Unavailable John Paul Moyer MD Unavailable Reason for Visit * Reason Comments Back Pain Has appointment upco rhoda with neurologist, but reports pain is uncontrolled. Encounter Details Date Type Department Care Team (Late st Contact Info) Description 10/22/2017 9:48 PM CDT - 10/23/2017 5:[address] 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 Gender Identity Not on file Sexual [...] Care Physician at Discharge: Justen Gale MD [phone] Date Of Service: 10/23/2017 Admission Date: 10/22/2017 Discharge Date: 10/23/2017 Discharge Diagnosis: Pulmonary embolism (CMS/HCC) Acute left-sided low back pain with left-sided sciatica Type 2 diabetes mellitus without long-term current use of insulin ([facility]) Essential hypertension Long-term current use of opiate [...] 11/14/2017 2:30 PM Khris Arthur MD [facility] Oncology primary care provider Justen Gale MD 2 [facility] [address] [facility] [address] Khris Arthur MD [address] [facility] [address] follow with oncology [place] [address] [facility] [address] [facility] [address] follow up [place] [address] [facility] [address] [facility] [address] follow up with pain management for steroid injection as scheduled Discharge Time:Greater than 30 minutes Elo Aceves MD Hospitalists [phone] 10/23/2017 4:47 PM documented in this encounter [...] Means Destination Discharge to home or self [facility] documented in this encounter H&P Notes * [...] needed to use a walker.She took 3 [place] today with mild relief. Patient denies incontinence or saddle anesthesia. She has chronic numbness and tingling in feet. Patient also states that she is mildly constipated. She was seen at [facility] ED on 10/09. CT scan showed multiple bulging discs and was prescribed [place] and Prednisone. 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 Dictated not proofread. * Ko Melendze MD - 10/23/2017 3:21 PM CDTAssociated Order(s): [...] previous attempts to get MRI scans at [facility] and also at [facility] have beenfailed. Patient also is diabetic he has sleep apnea she has had the right mastectomy for breast cancer treated at [facility]. She has had a mastectomy which was [...] [facility] scan [...] to use a walker. She took 3 [place] today with mild relief. Patient denies incontinence or saddle anesthesia, but does state that she has some numbness in the toes of her left foot. Patient also states that she is mildly constipated. She was seen at [facility] ED on 10/09. CT scan showed multiple bulging discs and was prescribed [place] and Prednisone. Patient sees a neurosurgeon Dr. [...] (5' 1 ) 121.1 kg (267 lb) [facility] ED Course as of Oct 23 125 [...] will consult. By: Damon Fletcher Time: 10/22 754 Comment: Care plan discussed with nurse By: [...] complication, without long-term current use of insulin ([facility]) (HCC) Hold janument. Start on SSI and [...] - DEVICE Final Result Performing Organization Address [facility] Co de Phone Number [facility] [address] [facility] [place] [address] * (ABNORMAL) POCT glucose (10/23/2017 7:57 AM CDT) Glucose, POC 203(H) 70 - 199 mg/dL [facility] Blood specimen (specimen) 10/23/2017 7:57 AM CDT 10/23/2017 7:57 AM CDT Narrative MARY JANE - 10/23/2017 7:59 AM CDT Elo Aceves MD LAB POCT ORDERABLES - DEVICE Final Result Performing Organization Address [facility] Co de Phone Number [facility] [address] [address] [facility] [place] [place] [address] * POCT glucose (10/23/2017 2:29 AM CDT) Glucose, POC 199 70 - 199 mg/dL [facility] Blood specimen (specimen) 10/23/2017 2:29 AM CDT 10/23/2017 2:29 AM CDT Narrative [facility] - 10/23/2017 2:30 AM CDT Sony Bullard MD LAB POCT ORDERABLES - DE VICE Final Result Performing Organization Address [facility] Co de Phone Number [facility] [address] [address] [facility] [place] [place] [address] * eGFR (10/22/2017 11:30 PM CDT) eGFR 75 mL/min/1.7 3 m2 [facility] Comment: [...] LAB BLOOD ORDERABLES Final Result MARY JANE [address] [address] Department [place] [address] * (ABNORMAL) Differential, auto (10/22/2017 11:30 PM CDT) Neutrophil abs 7.2(H) 1.7 - 6.5 K/cumm [facility] Imm gran abs 0.1 0.0 - 0.1 K/cumm [facility] Lymphocyte abs 2.5 0.8 - 3.3 K/cumm [facility] Monocyte abs 0.8 0.2 - 0.8 K/cumm [facility] Eosinophil abs 0.4 0.0 - 0.5 K/cumm [facility] Basophil abs 0.0 0.0 - 0.1 K/cumm [facility] Neutrophil pct 65.4 % [facility] Comment: Interpretive Data Percent cell count reference ranges are not reported, since discordance with absolute values may lead to misinterpretation of CBC data. Current Interpretive Data was last revised on 2017. Imm gran pct 0.6 % [facility] Comment: Interpretive Data Percent cell count reference ranges are not reported, since discordance with absolute values may lead to misinterpretation of CBC data. Current Interpretive Data was last revised on 2017. Lymphocyte pct 22.7 % [facility] Comment: Interpretive Data Percent cell count reference ranges are not reported, since discordance with absolute values may lead to misinterpretation of CBC data. Current Interpretive Data was last revised on 2017. Monocyte pct 7.6 % [facility] Comment: Interpretive Data Percent cell count reference ranges are not reported, since discordance with absolute values may lead to misinterpretation of CBC data. Current Interpretive Data was last revised on 2017. Eosinophil pct 3.3 % [facility] Comment: Interpretive Data Percent cell count reference ranges are not reported, since discordance with absolute values may lead to misinterpretation of CBC data. Current Interpretive Data was last revised on 2017. Basophil pct 0.4 % [facility] Comment: Interpretive Data Percent cell count reference ranges are not reported, since discordance with absolute values may lead to misinterpretation of CBC data. Current Interpretive Data was last revised on 2017. Blood specimen (specimen) 10/22/2017 11:30 PM CDT 10/22/2017 11:39 PM CDT Narrative [facility] - 10/22/2017 11:45 PM CDT us Erick Davis MD LAB BLOOD ORDERABLES Final Result [facility] [address] [address] Department [place] [address] * (ABNORMAL) Basic metabolic panel (10/22/2017 11:30 [...] [facility] Glucose 273(H) 70 - 199 mg/dL [facility] Comment: Interpretive Data Fasting glucose >/= 126 [...] Calcium 9.4 8.4 - 10.5 mg/dL [facility] Blood specimen (specimen) 10/22/2017 11:30 PM CDT 10/22/2017 11:43 PM CDT Narrative [facility] - 10/23/2017 12:01 AM CDT Erick Davis MD LAB BLOOD ORDERABLES Final Result [facility] [address] [address] Department [place] [address] * (ABNORMAL) CBC with auto differential (10/22/2017 11:30 PM CDT) WBC 11.0(H) 3.8 - 9.9 K/cumm [facility] RBC 4.29 3.90 - 5.20 M/cumm [facility] Hgb 11.6(L) 11.9 - 15.5 g/dL [facility] Hct 37.7 35.6 - 45.5 % [facility] MCV 87.9 81.3 - 96.4 fL [facility] MCH 27.0(L) 27.1 - 33.3 pg [facility] MCHC 30.8(L) 32.3 - 35.7 g/dL [facility] RDW CV 14.9 11.1 - 14.9 % [facility] RDW SD 47.8 35.7 - 48.1 fL [facility] Plt 334 150 - 400 K/cumm [facility] MPV 10.1 9.1 - 12.3 fL [facility] NRBC abs 0.00 0.00 - 0.01 K/cumm [facility] Blood specimen (specimen) (Blood, Venous) 10/22/2017 11:30 PM CDT 10/22/2017 11:39 PM CDT Narrative [facility] - 10/22/2017 11:45 PM CDT Erick Davis MD LAB BLOOD ORDERABLES Final Result Performing Organization Address City/State/[facility] Co de Phone Number [facility] [address] [address] [place] [address] documented in this encounter Visit Diagnoses Diagnosis [...] medication )1112 (Not Given - Provider: Codie Phillips RN - Reason: Patient/family refused) insulin lispro [...] 2 puff, inhalation, Every 4 hours PRN (animal therapist), wheezing, Starting on Mon10/23/17 at 0200, Indications: [...] 10/22/2017 documented in this encounter Care Teams Architecture Department Chair Relationship Specialty Start Date End Date Justen Gale MD 2 [facility] [address] [place] [address] PCP - General 10/09/17 Liu Jerez MD Consulting Physician Gastroenterology 07/28/17 [place] [address] [address] [facility] [address] [place] [address] Consulting Physician Pulmonary Disease 08/03/17 Khris Arthur MD [address] [facility] [address] [place] [address] Medical Oncologist/Assembly Inspector Medical Oncology 10/23/17 [place] [address] [facility] [address] [place] [address] Surgeon Orthopedic Surgery 10/23/17 [place] [address] [facility] [address] [place] [address] Consulting Physician Pain Management 10/23/17 documented as of this encounter
--- OUTSIDE RECORDS SUMMARY | 2024-04-26 09:30 | XMS_ITS | Encounter Summary ---
Author Organization [facility] Healthcare Address [address] [place] [address] Care Team Providers Care Sole Splitter Name Role Phone Liu Jerez MD Unavailable Albert Corbin MD Unavailable [phone] Justen Gale MD Primary Care Provider Reason for Visit * Reason Comments Shortness of Breath Encounter Details Date Type Department Care Team (Late st Contact Info) Description 08/18/2017 3:59 PM CDT - 08/18/2017 9:40 PM CDT Emergency [facility] Emergency Department [address] [place] [address] Devonte Lake MD [address] [place] [address] [address] [place] [address] Acute bronchitis, unspecified organism (Primary [...] on file 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 * Chest Wall Pain, Costochondritis (Jamaican) * Cold Symptoms (Electrical Calibrator) (Jamaican) * Acute Bronchitis (General Information) (Jamaican) documented in this encounter Medications at [...] ??mL/min/1.73m2 *Relative to young adult level If -Mauritanian multiply value by 1.16. Estimated glomerular filtration [...] BLOOD ORDERABLES Fi nal Result MARY JANE [address] Department [place] [address] * (ABNORMAL) Differential, auto (08/18/2017 5:27 PM CDT) Pathologist [facility] Neutrophil abs 8.1(H) 1.7 - 6.5 K/cumm [facility] Imm gran abs 0.1 0.0 - 0.1 K/cumm [facility] Lymphocyte abs 3.3 0.8 - 3.3 K/cumm [facility] Monocyte abs 0.9(H) 0.2 - 0.8 K/cumm [facility] Eosinophil abs 0.3 0.0 - 0.5 K/cumm [facility] Basophil abs 0.0 0.0 - 0.1 K/cumm [facility] Neutrophil pct 63.8 % [facility] Comment: Interpretive Data Percent cell count reference ranges are not reported, since discordance with absolute values may lead to misinterpretation of CBC data. Current Interpretive Data was last revised on 2017. Imm gran pct 0.6 % [facility] Comment: Interpretive Data Percent cell count reference ranges are not reported, since discordance with absolute values may lead to misinterpretation of CBC data. Current Interpretive Data was last revised on 2017. Lymphocyte pct 25.9 % [facility] Comment: Interpretive Data Percent cell count reference ranges are not reported, since discordance with absolute values may lead to misinterpretation of CBC data. Current Interpretive Data was last revised on 2017. Monocyte pct 6.9 % [facility] Comment: Interpretive Data Percent cell count reference ranges are not reported, since discordance with absolute values may lead to misinterpretation of CBC data. Current Interpretive Data was last revised on 2017. Eosinophil pct 2.4 % [facility] Comment: Interpretive Data Percent cell count reference ranges are not reported, since discordance with absolute values may lead to misinterpretation of CBC data. Current Interpretive Data was last revised on 2017. Basophil pct 0.4 % [facility] Comment: Interpretive Data Percent cell count reference ranges are not reported, since discordance with absolute values may lead to misinterpretation of CBC data. Current Interpretive Data was last revised on 2017. Blood specimen (specimen) 08/18/2017 5:27 PM CDT 08/18/2017 5:36 PM CDT Narrative [facility] - 08/18/2017 5:40 PM CDT us Karlos Lim MD LAB BLOOD ORDERABLES Fi nal Result [facility] [id number] Department [place] [address] * Troponin I (08/18/2017 5:27 PM CDT) [facility] Troponin I <0.03 0.00 - 0.14 ng/mL [facility] Comment: Interpretive Data Normal: ? 0.00 - 0.14 ng/mL Indeterminate: ?0.15 - 0.50 ng/mL [place] / Cardiac Muscle Damage: ? >0.50 ng/mL Current interpretive data was last reviewed 2015 Blood specimen (specimen) 08/18/2017 5:27 PM CDT 08/18/2017 5:36 PM CDT Narrative [facility] - 08/18/2017 6:01 PM CDT Karlos Lim MD LAB BLOOD ORDERABLES Ed ited Result - Final [facility] [address] Department [place] [address] * Comprehensive metabolic panel (08/18/2017 5:27 PM CDT) [facility] Sodium 135 135 - 145 mmol/L [facility] Potassium, pl 4.5 3.5 - 5.1 mmol/L [facility] CO2 27 22 - 32 mmol/L [facility] BUN 16 8 - 24 mg/dL [facility] Glucose 194 70 - 199 mg/dL [facility] Comment: Interpretive Data Fasting glucose >/= [...] LAB [place] [address] [address] Department [place] [address] * (ABNORMAL) CBC with auto differential (08/18/2017 [...] abs 0.00 0.00 - 0.01 K/cumm [facility] Blood specimen (specimen) 08/18/2017 5:27 PM CDT 08/18/2017 5:36 PM CDT Narrative [facility] - 08/18/2017 5:40 PM CDT Karlos Lim MD LAB BLOOD ORDERABLES Fi nal Result MARY JANE [address] Department [place] [address] * XR Chest Pa Lateral 2 Views [...] 3:17 PM CDT) Patient age 62 years [facility] Interpretation Text SINUS RHYTHMPOSSIBLE LEFT ATRIAL ENLARGEMENTPOSSIBLE RIGHT VENTRICULAR CONDUCTION DELAYBORDERLINE ECGPREVIOUS TRACIN08/14/2017 19.49Compared to prior ECG rSr' V1 V2 suggests right ventricular conduction delay is new. [facility] Comment:Physician Interprete r Dr. Ramon De M.D. Ventricular Rate EKG/Min 88 /min [facility] P Wave Duration 108 ms [facility] QRS-Interval (MSEC) 89 ms [facility] DC-Interval (MSEC) 130 ms [facility] QT Interval 343 ms [facility] QTc 392 ms [facility] QTC Interval ms [facility] P [place] 38 deg [facility] QRS [place] 13 deg [facility] T [place] 32 deg [facility] 08/18/2017 3:17 PM CDT Devonte Lake MD ECG ORDERABLES Final Result [facility] * DISCHARGE LABORATORY CUMULATIVE REPORT [...] solution 5 mg 5 mg, nebulization, Once (mother baby rn), On Mon08/18/17 at 1515, For 1 dose, Indications: COPD ExacerbationIndications:COPD Exacerbation Given 08/18/2017 4:06 PM CDT 2.5 mg ipratropium (ATROVENT) 0.02 % nebulizer solution - ADS Override Pull Starting on Mon08/18/17 at 1558, For 1 dose, BONNY RIOJAS: cabinet override Given 08/18/2017 4:07 PM CDT 0.5 mg ipratropium-albuterol (DUO-NEB) 0.5-2.5 mg/3 mL nebulizer solution 3 mL 3 mL, nebulization, Every 6 hours PRN (mother baby rn), wheezing, shortness of breath, Starting on Mon08/18/17 [...] albuterol HFA (PROVENTIL HFA,VENTOLIN HFA) 90 mcg/actuation inhalerIndications:[facility] Inhale 2 puffs every 4 (four) hours as needed for wheezing. 08/15/2017 08/18/2017 documented as of this encounter Active and Recently Administered Medications Times are shown in CDT. Scheduled Medication Order 08/16/2017 08/17/2017 08/18/2017 albuterol (PROVENTIL,VENTOLIN) 2.5 mg/0.5 mL nebulizer solution 5 mg (COMPLETED) 5 mg, nebulization, Once (mother baby rn), On Mon08/18/17 at 1515, For 1 dose, Indications: COPD Exacerbation 1606 (Given - Provid er: 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, STAFF TECHNOLOGIST) ipratropium-albuterol (DUO-NEB) 0.5-2.5 mg/3 mL nebulizer solution 3 mL (COMPLETED) 3 mL, nebulization, Once, On Mon08/18/17 at 1915, For 1 dose, MAY REPEAT 3 DOSES Q 10 MINUTES NEEDED FOR WHEEZING, Indications: Chronic Obstructive Pulmonary Disease with Bronchospasms 193 (Given - Provid er: Cem Lucero, STAFF TECHNOLOGIST) sodium chloride 0.9% bolus 1,000 mL (COMPLETED) 1,000 mL, intravenous, at 1,000 mL/hr, Administer over 1 Hours, Once, On Mon08/18/17 at 1915, For 1 dose 192 (New Bag - Prov ider: Mariely Mcmillan, NURIS)193 (Stopped - Provider: Pj Argueta RN) PRN Medication Order 08/16/2017 08/17/2017 08/18/2017 ipratropium-albuterol (DUO-NEB) 0.5-2.5 mg/3 mL nebulizer solution 3 mL 3 mL, nebulization, Every 6 hours PRN (mother baby rn), wheezing, shortness of breath, Starting on Mon08/18/17 at 1604, Indications: Chronic Obstructive Pulmonary Disease with Bronchospasms 1719 (Due) No Frequency Medication Order 08/16/2017 08/17/2017 08/18/2017 ipratropium (ATROVENT) 0.02 % nebulizer solution - ADS Override Pull (COMPLETED) Starting on Mon08/18/17 at 1558, For 1 dose, BONNY RIOJAS: cabinet override 1607 (Given - Provid er: 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, STAFF TECHNOLOGIST) documented in this encounter Orders Medications Ordered [...] 08/18/2017 documented in this encounter Care Teams Sole Splitter Relationship Specialty Start Date End Date Justen Gale MD [address] [address] PCP - General 08/18/17 08/22/17 Liu Jerez MD Consulting Physician Gastroenterology 07/28/17 [place] [address] [facility] [address] [place] [address] Consulting Physician Pulmonary Disease 08/03/17 documented as of this encounter
--- OUTSIDE RECORDS SUMMARY | 2024-04-26 09:30 | XMS_ITS | Encounter Summary ---
Author Organization [facility] Healthcare Address [address] [place] [address] Care Team Providers Care Home Health Clinical Liaison Name Role Phone Liu Jerez MD Unavailable Albert Corbin MD Unavailable Justen Gale MD Primary Care Provider [phone] Reason for Visit * Reason Comments Back Pain Encounter Details Date Type Department Care Team (Late st Contact Info) Description 10/09/2017 10:07 AM CDT - 10/09/2017 1:46 PM CDT Emergency [facility] Emergency Department [address] [place] [address] Karlos Lim MD [address] [place], [place] [id number] [place] [address] Sciatica of left side (Primary Dx) Discharge [...] on file 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 * Sciatica (AfterCare(R) Instructions(ER/ED)) (Surinamese) documented in this encounter Medications at [...] ??? Hyponatremia 08/01/2017 ??? Diet-controlled diabetes mellitus ([facility]/HCC) 08/01/2017 ??? LUL (obstructive sleep apnea) 08/01/2017 ??? History of DVT (deep vein thrombosis) 08/01/2017 ??? History of pulmonary embolism 08/01/2017 ??? Essential hypertension ??? Generalized weakness 07/27/2017 ??? Dyspnea 07/27/2017 ??? Unintentional weight loss 07/27/2017 ??? Acute cystitis without hematuria 07/27/2017 ??? Nausea and vomiting 07/26/2017 ??? Pulmonary embolism ([facility]) 08/09/2016 Class: Chronic ??? Lymphedema of [...] NURIS) documented in this encounter Care Teams Home Health Clinical Liaison Relationship Specialty Start Date End Date Justen Gale MD [address] [address] PCP - General 10/09/17 Liu Jerez MD Consulting Physician Gastroenterology 07/28/17 [place] [address] [facility] [address] [place] [address] Consulting Physician Pulmonary Disease 08/03/17 documented as of this encounter
--- OUTSIDE RECORDS SUMMARY | 2024-04-26 09:30 | XMS_ITS | Encounter Summary ---
Author Organization [facility] Healthcare Address [address] [place] [address] Care Team Providers Care Lead Programmer Name Role Phone Liu Jerez MD Unavailable [phone] Albert Corbin MD Unavailable [phone] Justen Gale MD Primary Care Provider [phone] Encounter Details Date Type Department Care Team (Latest Contact Info) Description 10/09/2017 11:35 AM CDT - 10/09/2017 11:59 PM CDT Hospital Encounter [facility] Vascular Lab [address] [place] [address] Discharge Disposition: Discharge to home or self care Social History Tobacco Use Types Packs/Day Years Used Date Smoking Tobacco: Former Smokeless Tobacco: Never Alcohol Use Standard Drinks/Week Comments No 0 (1 standard drink = 0.6 oz pur e alcohol) Comments No Sex and Gender Information Value Date Recorded Sex Assigned at Not on file 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 Yeni Crespo CYLINDER INSPECTOR IMG US PROCEDURES Fi nal Result documented in this encounter Visit Diagnoses Not on filedocumented in this encounter Care Teams Lead Programmer Relationship Specialty Start Date End Date Justen Gale MD [address] [address] PCP - General 10/09/17 Liu Jerez MD Consulting Physician Gastroenterology 07/28/17 [place] [address] [facility] [address] [place] [address] Consulting Physician Pulmonary Disease 08/03/17 documented as of this encounter
--- OUTSIDE RECORDS SUMMARY | 2024-04-26 09:30 | XMS_ITS | Encounter Summary ---
Author Organization [facility] Address [address] [facility] [address] [place] [address] Care Team Providers Care Bank Clerk Name Role Phone Lavonne Hathaway MD Primary Care Provider [phone] Liu Jerez MD Unavailable [phone] Albert Corbin MD Unavailable [phone] Encounter Details Date Type Department Care Team (Late st Contact Info) Description 08/08/[address] [facility] [address] [place] [address] [place] [id number] [place] [address] [address] [place] [address] Social History Tobacco Use Types Packs/Day Years Used Date Smoking Tobacco: Former Smokeless Tobacco: Never Alcohol Use Standard Drinks/Week Comments No 0 (1 standard drink = 0.6 oz pur e alcohol) Comments No Sex and Gender Information Value Date Recorded Sex Assigned at Not on file 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 Gender Identity Not on file Sexual Orientation Not on file documented as of this encounter Miscellaneous Notes * Telephone Encounter - Dominique Hawkins MA - 08/10/2017 11:01 AM CDT Pt called and I gave her the results to her test * Telephone Encounter - Christin Caets MA - 08/10/2017 10:34 AM CDT LMOM [...] on filedocumented in this encounter Care Teams Bank Clerk Relationship Specialty Start Date End Date Lavonne Hathaway MD [address] [place] [address] [place] [address] PCP - General 08/16/16 08/17/17 Liu Jerez MD [address] [place] [address] [place] [address] Consulting Physician Gastroenterology 07/28/17 [place] [address] [facility] [address] [place] [address] Consulting Physician Pulmonary Disease 08/03/17 documented as of this encounter
--- OUTSIDE RECORDS SUMMARY | 2024-04-26 09:30 | XMS_ITS | Encounter Summary ---
Author Organization [facility] Address [address] [place] [address] Phone Care Team Providers Care Mental Health Coordinator Name Role Phone Liu Jerez MD Unavailable [phone] Albert Corbin MD Unavailable Justen Gale MD Primary Care Provider [phone] Encounter Details Date Type Department Care Team (Late st Contact Info) Description 10/13/2017 Orders Only [facility] Oncology [address] [facility] Advanced Medicine 7th [place] [address] [place] [address] Khris Arthur MD [address] [facility] [address] [place] [address] Malignant neoplasm of overlapping sites [...] on file 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 Gender Identity Not on file Sexual Orientation Not on file documented as of this encounter Plan of Treatment Not on file documented as of this encounter Results * (ABNORMAL) Comprehensive metabolic panel (01/16/2018 3:10 PM CDT) Sodium 139 135 - 145 mmol/L [facility] Potassium, pl 4.2 3.3 - 4.9 mmol/L [facility] Chloride 101 97 - 110 mmol/L [facility] CO2 28 22 - 32 mmol/L [facility] Anion gap 10 2 - 15 mmol/L [facility] BUN 14 8 - 25 mg/dL [facility] Creatinine 0.72 0.60 - 1.10 mg/dL [facility] Glucose 116 70 - 199 mg/dL [facility] [...] 2017. Calcium 10.6(H) 8.5 - 10.3 mg/dL [facility] Bilirubin, total 0.6 0.1 - 1.2 mg/dL [facility] Protein, pl 8.5 6.5 - 8.5 g/dL [facility] Albumin 4.0 3.5 - 5.0 g/dL [facility] Alk phos 92 40 - 130 Units/L [facility] ALT 19 7 - 45 Units/L [facility] AST 22 10 - 45 Units/L [facility] Blood specimen (specimen) 01/16/2018 3:10 PM CDT 01/16/2018 3:34 PM CDT Narrative [facility] - 01/16/2018 4:20 PM CDT us Khris Arthur MD LAB BLOOD ORDERABLES Final Result [facility] Department [place] [address] * (ABNORMAL) CBC with auto differential (01/16/2018 3:02 PM CDT) WBC 13.0(H) 3.8 - 9.8 K/cumm [facility] Comment:Testing performed by : [facility], [address] [place] [phone] Hgb 12.8 12.1 - 15.1 g/dL [facility] Comment:Testing performed by : [address] [address] Hct 39.3 36.1 - 44.3 % [facility] Comment:Testing performed by : [address] [address] Plt 368 140 - 440 K/cumm [facility] ANGELES Comment:Testing performed by : [address] [address] MPV 7.4 6.8 - 10.4 fL [facility] Comment:Testing performed by : [address] [address] RBC 4.68 3.90 - 5.00 M/cumm [facility] JANE ANGELES Comment:Testing performed by : [address] [address] MCV 83.9 80.0 - 97.6 fL [facility] Comment:Testing performed by : [address] [address] MCH 27.3 26.7 - 33.7 pg [facility] Comment:Testing performed by : [address] [address] MCHC 32.5(L) 32.7 - 35.5 g/dL [facility] Comment:Testing performed by : [address] [address] RDW CV 15.0(H) 11.8 - 14.6 % [facility] Comment:Testing performed by : [facility], [address] [facility] [address] NRBC abs 0.00 0.00 - 0.01 K/cumm [facility] Comment:Testing performed by : [facility], [address] [facility] [address] Blood specimen (specimen) 01/16/2018 3:02 PM CDT 01/16/2018 3:06 PM CDT Narrative [facility] - 01/16/2018 3:09 PM CDT us Khris Arthur MD LAB BLOOD ORDERABLES Final Result [facility] [place] [address] documented in this encounter Visit Diagnoses Diagnosis Malignant neoplasm of overlapping sites of left female breast, unspecified estrogen receptor status (HCC)- Primary Malignant neoplasm of overlapping sites of left female breast, unspecified estrogen receptor status (HCC) documented in this encounter Care Teams Mental Health Coordinator Relationship Specialty Start Date End Date Justen Gale MD 2 [facility] [address] [place] [address] PCP - General 10/09/17 Liu Jerez MD Consulting Physician Gastroenterology 07/28/17 [place] [address] [facility] [address] [place] [address] Consulting Physician Pulmonary Disease 08/03/17 documented as of this encounter
--- OUTSIDE RECORDS SUMMARY | 2024-04-26 09:31 | XMS_ITS | Encounter Summary ---
Author Organization [facility] Healthcare Address [address] [place] [address] Care Team Providers Care Edge Cutting Machine Operator Name Role Phone Lavonne Hathaway MD Primary Care Provider [phone] Encounter Details Date Type Department Care Team (Latest Contact Info) Description 06/30/2017 8:07 AM CAMP DIRECTOR - 06/30/2017 11:59 PM [facility] Hospital Encounter [facility] OP INTERIM [phone] Javy Diehl MD PhD [address] [facility] [address] [place], [place] [id number] Discharge Disposition: Discharge to home or self care Social History Tobacco Use Types Packs/Day Years Used Date Smoking Tobacco: Former Alcohol Use Standard Drinks/Week Comments No 0 (1 standard drink = 0.6 oz pur e alcohol) Comments Unknown Sex and Gender Information Value Date Recorded Sex Assigned at Not on file 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
--- OUTSIDE RECORDS SUMMARY | 2024-04-26 09:31 | XMS_ITS | Encounter Summary ---
Author Organization [facility] Healthcare Address [address] [place] [address] Care Team Providers Care Stitchdown Thread Laster Name Role Phone Lavonne Hathaway MD Primary Care Provider [phone] Encounter Details Date Type Department Care Team (Latest Contact Info) Description 01/05/2017 5:57 PM CDT - 01/07/2017 6:14 PM CDT Hospital Encounter [place] [id number] [place] [address] [place] [id number] [address] Discharge Disposition: Discharge to home or self care Social History Tobacco Use Types Packs/Day Years Used Date Smoking Tobacco: Former Alcohol Use Standard Drinks/Week Comments No 0 (1 standard drink = 0.6 oz pur e alcohol) Comments Unknown Sex and Gender Information Value Date Recorded Sex Assigned at Not on file 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 Leukocytosis. 5. Morbid obesity. Ms. Mohsen Maruqes is a 61-year-old lady with morbid obesity [...] She went for an open MRI in [place] but could not fit into that machine also because of her body habitus. Also when she was measured she could not go to the [facility] for MRI. She however had a CT [...] Flexeril 5 mg q.8 hourly p.r.n. 9. [place] 7.5/325 one tab q.6 hours hourly p.r.n. Time spent on coordinating the discharge is 35 minutes. Patient seen and examined by me on discharge. Progress notes in the electronic health record. Electronically Authenticated by: Porfirio Riley MD On 01/10/2017 09:50 AM CDT Porfirio Riley M.D., F.H.M., F.A.C.P. [place] TD: 01/07/2017 15:16 Avery Jones M.D. Ravindra Shitut, M.D. documented in [...] HISTORY AND PHYSICAL Patient: MOHSEN MARQUES Account: [id number] Room No: 1010-02 : 1955 Patient Type: [facility] Attend.: Porfirio Riley M.D., Aleksander, F.A.C.P. Admit Date: 01/02/2017 Dict.: Porfirio Riley M.D., Aleksander, F.A.C.P. Disch. Date: CHIEF COMPLAINT Leg pain and weakness. HISTORY OF PRESENT ILLNESS Ms. Mohsen Marques is a 61-year-old lady with stage 2 breast cancer who has been disease free. She follows up in the [facility]. She was estrogen receptor positive, HER2 negative and is currently on Exemestane. She had bilateral mastectomy in September of 2014. Her last visit to [facility] was in October 11, 2016. She is [...] Patient: MOHSEN MARQUES Service Date: 01/03/2017 Account: [id number] Room No: 1009-01 : 1955 Patient Type: [facility] Attend.: Porfirio Riley M.D., F.H.M., F.A.C.P. Admit [...] Glucose, POC 238(H) 70 - 199 mg/dL [facility] Blood specimen (specimen) 01/07/2017 12:30 PM CDT 01/07/2017 12:30 PM CDT Porfirio Riley MD POINT OF CARE TEST O RDERABLES Final Result Performing Organization Address City/[facility]/ZIP Co de Phone Number MARY JANE [address] [place] [address] * Glucose POC (01/07/2017 6:28 AM CDT) Glucose, POC 152 70 - 199 mg/dL [facility] Blood specimen (specimen) 01/07/2017 6:28 AM CDT 01/07/2017 6:28 AM CDT Porfirio Riley MD POINT OF CARE TEST O RDERABLES Final Result MARY JANE [address] [place] [address] * Glucose POC (01/07/2017 4:07 AM CDT) Glucose, POC 137 70 - 199 mg/dL [facility] Blood specimen (specimen) 01/07/2017 4:07 AM CDT 01/07/2017 4:07 AM CDT Porfiriolashawn Riley MD POINT OF CARE TEST O RDERABLES Final Result Performing Organization Address [facility] Co de Phone Number MARY JANE ARNOLD [address] [place] [address] * DISCHARGE LABORATORY CUMULATIVE REPORT (01/07/2017 12:00 AM CDT) Narrative 01/07/2017 12:00 AM CDT Ordered by an unspecified provider. Historical Provider MD LAB BLOOD ORDERABLES Deann l Result * Glucose POC (01/06/2017 8:55 PM CDT) Glucose, POC 188 70 - 199 mg/dL [facility] Blood specimen (specimen) 01/06/2017 8:55 PM CDT 01/06/2017 8:55 PM CDT Porfirio Riley MD POINT OF CARE TEST O RDERABLES Final Result Performing Organization Address [facility] Co de Phone Number MARY JANE ARNOLD [address] [place] [address] * Glucose POC (01/06/2017 4:52 PM CDT) Glucose, POC 151 70 - 199 mg/dL [facility] Blood specimen (specimen) 01/06/2017 4:52 PM CDT 01/06/2017 4:52 PM CDT Porfirio Riley MD POINT OF CARE TEST O RDERABLES Final Result Performing Organization Address [facility] Co de Phone Number MARY JANE ARNOLD [address] [place] [address] * Glucose POC (01/06/2017 11:52 AM CDT) Glucose, POC 154 70 - 199 mg/dL [facility] Blood specimen (specimen) 01/06/2017 11:52 AM CDT 01/06/2017 11:52 AM CDT us Porfirio Riley MD POINT OF CARE TEST O RDERABLES Final Result Performing Organization Address [facility] de Phone Number MARY JANE [address] [facility] [place] [address] * Glucose POC (01/06/2017 6:29 AM CDT) Glucose, POC 152 70 - 199 mg/dL [facility] Blood specimen (specimen) 01/06/2017 6:29 AM CDT 01/06/2017 6:29 AM CDT us Porfirio Riley MD POINT OF CARE TEST O RDERABLES Final Result Performing Organization Address [facility] de Phone Number MARY JANE [address] [place] [address] * Glucose POC (01/06/2017 3:08 AM CDT) Glucose, POC 176 70 - 199 mg/dL [facility] Blood specimen (specimen) 01/06/2017 3:08 AM CDT 01/06/2017 3:08 AM CDT us Porfirio Riley MD POINT OF CARE TEST O RDERABLES Final Result Performing Organization Address [facility] de Phone Number MARY JANE [address] [place] [address] * (ABNORMAL) Glucose POC (01/05/2017 8:32 PM CDT) Glucose, POC 309(H) 70 - 199 mg/dL [facility] Blood specimen (specimen) 01/05/2017 8:32 PM CDT 01/05/2017 8:32 PM CDT us Porfirio Riley MD POINT OF CARE TEST O RDERABLES Final Result Performing Organization Address [facility] Co de Phone Number MARY JANE ARNOLD [address] [facility] [place] [address] * Glucose POC (01/05/2017 4:55 PM CDT) Glucose, POC 183 70 - 199 mg/dL [facility] Blood specimen (specimen) 01/05/2017 4:55 PM CDT 01/05/2017 4:55 PM CDT Porfirio Riley MD POINT OF CARE TEST O RDERABLES Final Result Performing Organization Address [facility] Co de Phone Number MARY JANE AR[place] [address] [place] [address] * Glucose POC (01/05/2017 11:48 AM CDT) Glucose, POC 180 70 - 199 mg/dL [facility] Blood specimen (specimen) 01/05/2017 11:48 AM CDT 01/05/2017 11:48 AM CDT Porfirio Riley MD POINT OF CARE TEST O RDERABLES Final Result Performing Organization Address [facility] Co de Phone Number MARY JANE ARNOLD [address] [facility] [place] [address] * Glucose POC (01/05/2017 6:42 AM CDT) Glucose, POC 154 70 - 199 mg/dL [facility] Blood specimen (specimen) 01/05/2017 6:42 AM CDT 01/05/2017 6:42 AM CDT Porfirio Riley MD POINT OF CARE TEST O RDERABLES Final Result Performing Organization Address [facility] Co de Phone Number MARY JANE ARNOLD [address] [facility] [place] [address] * (ABNORMAL) Glucose POC (01/05/2017 2:59 AM CDT) Glucose, POC 214(H) 70 - 199 mg/dL [facility] Blood specimen (specimen) 01/05/2017 2:59 AM CDT 01/05/2017 2:59 AM CDT Porfirio Riley MD POINT OF CARE TEST O RDERABLES Final Result Performing Organization Address [facility] de Phone Number [facility] [address] [facility] [place] [address] * (ABNORMAL) Glucose POC (01/04/2017 8:24 PM CDT) Glucose, POC 227(H) 70 - 199 mg/dL [facility] Blood specimen (specimen) 01/04/2017 8:24 PM CDT 01/04/2017 8:24 PM CDT Porfirio Riley MD POINT OF CARE TEST O RDERABLES Final Result Performing Organization Address [facility] de Phone Number [facility] [address] [facility] [place] [address] * THORACOLUMBAR SPINE COMPUTED TOMOGRAPHY (CT) WITHOUT CONTRAST (01/04/2017 5:55 PM CDT) Anatomical Region Laterality Modality N/A Computed Tomogra phy 01/04/2017 5:55 PM CDT Narrative 01/04/2017 5:55 PM CDT DATE OF EXAM: ??Jan 04 2017 12:55PM Acc#: ??[id number] ??ECT 0097 - CT Thoracic and Lumbar [...] Electronically signed by: Linsey Quigley M.D. ? LENS SHAPER GRINDER: ??PSC TRANSCRIBE DATE/TIME: ??Jan 05 2017 ??9:47A RADIOLOGIST: ??LINSEY QUIGLEY M.D. ??READ ON: ??Jan 05 2017 ??9:49A ORDERING DR: PORFIRIO RILEY M.D. THIS DOCUMENT HAS BEEN ELECTRONICALLY SIGNED BY: ??LIANNA Varela, LINSEY ??ON: ??Jan 05 2017 ??9:47A Attending: ??KIM, ??PORFIRIO Requesting: ??KIM, ??PORFIRIO Requesting Fax: ??[phone] Attending Fax: ??[phone] Attending ID: ??[id number] Requesting ID: ??[id number] Report To 1 ID: ?? Report To 1 Name: ??, ?? Report To 1 FAX: ??-- Report To 2 ID: ?? Report To 2 Name: ??, ?? Report To 2 FAX: ??-- NextGen Order #: ?? Procedure Note Miscellaneous, Not In File / Provider, MD Tyler - 01/05/2017 DATE OF EXAM: Jan 04 2017 12:55PM Acc#: [id number] ECT 0097 - CT Thoracic and Lumbar [...] SEEN. Electronically signed by: Linsey Quigley M.D. LENS SHAPER GRINDER: [employer] TRANSCRIBE DATE/TIME: Jan 05 2017 9:47A RADIOLOGIST: LINSEY QUIGLEY M.D. READ ON: Jan 05 2017 9:49A ORDERING DR: PORFIRIO RILEY M.D. THIS DOCUMENT HAS BEEN ELECTRONICALLY SIGNED BY: LINSEY QUIGLEY M.D. ON: Jan 05 2017 9:47A Attending: PORFIRIO RILEY Requesting: PORFIRIO RILEY Requesting Attending Attending ID: [id number] Requesting ID: [id number] Report To 1 ID: Report To 1 Name: , Report To 1 FAX: -- Report To 2 ID: Report To 2 Name: , Report To 2 FAX: -- NextGen Order #: Porfirio Riley MD IMG CT PROCEDURES Ed ited Result - Final * (ABNORMAL) Glucose POC (01/04/2017 5:17 PM CDT) Glucose, POC 230(H) 70 - 199 mg/dL [facility] Blood specimen (specimen) 01/04/2017 5:17 PM CDT 01/04/2017 5:17 PM CDT Porfirio Riley MD POINT OF CARE TEST O RDERABLES Final Result Performing Organization Address [facility] Co de Phone Number MARY JANE [address] [place] [address] * Glucose POC (01/04/2017 1:11 PM CDT) Glucose, POC 126 70 - 199 mg/dL [facility] Blood specimen (specimen) 01/04/2017 1:11 PM CDT 01/04/2017 1:11 PM CDT Porfirio Riley MD POINT OF CARE TEST O RDERABLES Final Result Performing Organization Address [facility] de Phone Number [facility] [address] [place] [address] * Glucose POC (01/04/2017 6:36 AM CDT) Glucose, POC 180 70 - 199 mg/dL [facility] Blood specimen (specimen) 01/04/2017 6:36 AM CDT 01/04/2017 6:36 AM CDT Porfirio Riley MD POINT OF CARE TEST O RDERABLES Final Result Performing Organization Address [facility] de Phone Number [facility] [address] [place] [address] * (ABNORMAL) Vitamin D 25 hydroxy (01/04/2017 4:24 AM CDT) Vitamin D 25-OH 28(L) 30 - 80 ng/mL [facility] Blood specimen (specimen) 01/04/2017 4:24 AM CDT 01/04/2017 4:54 AM CDT Porfirio Riley MD LAB BLOOD ORDERABLES Final Result Performing Organization Address [facility] de Phone Number [facility] [address] [place] [address] * PTH, intact (01/04/2017 4:24 AM CDT) PTH 44 12 - 65 pg/mL [facility] Comment: Interpretive Data In the presence of normal renal function and hypercalcemia, a PTH level of >65 pg/ml is highly suggestive of primary hyperparathyroidism. Current interpretive data was last revised 2015 Blood specimen (specimen) 01/04/2017 4:24 AM CDT 01/04/2017 4:54 AM CDT Porfirio Riley MD LAB BLOOD ORDERABLES Final Result Performing Organization Address [facility] de Phone Number [facility] [address] [place] [address] * Creatine kinase (CK), total (01/04/2017 4:24 AM CDT) CK 54 30 - 220 Units/L [facility] Blood specimen (specimen) 01/04/2017 4:24 AM CDT 01/04/2017 4:54 AM CDT Porfirio Riley MD LAB BLOOD ORDERABLES Final Result Performing Organization Address [facility] de Phone Number [facility] [address] [place] [address] * Lactate dehydrogenase (LD) (01/04/2017 4:24 AM CDT) Lactate dehydrogenase (LDH) 131 100 - 220 Units/L [facility] Blood specimen (specimen) 01/04/2017 4:24 AM CDT 01/04/2017 4:54 AM CDT Porfirio Riley MD LAB BLOOD ORDERABLES Final Result Performing Organization Address City/[facility]/ZIP Co de Phone Number MARY JANE ARNOLD [address] [facility] [place] [address] * Glucose POC (01/04/2017 4:24 AM CDT) Glucose, POC 186 70 - 199 mg/dL MARY JANE Blood specimen (specimen) 01/04/2017 4:24 AM CDT 01/04/2017 4:24 AM CDT us Porfirio Riley MD POINT OF CARE TEST O RDERABLES Final Result Performing Organization Address [facility] de Phone Number MARY JANE AR[place] [address] [facility] [place] [address] * CANCELED MRI STUDY (01/03/2017 9:49 PM CDT) Anatomical Region Laterality Modality N/A Magnetic Resonan ce 01/03/2017 9:49 PM CDT Narrative 01/03/2017 9:49 PM CDT DATE OF EXAM: ??Jan 03 2017 ??4:49PM Acc#: ??[id number] ??EMR 0000 - Cancelled MRI Study ?? [...] IMPRESSION: ?Thank you, The Radiology Department at [facility] LENS SHAPER GRINDER: ?? TRANSCRIBE DATE/TIME: ??Jan 03 2017 ??4:50P RADIOLOGIST: ?INFORMATION SYSTEM RADIOLOGY M.D. ??READ ON: ??Jan 03 2017 ?? 4:50P ORDERING DR: POFRIRIO RILEY M.D. THIS DOCUMENT HAS BEEN ELECTRONICALLY SIGNED BY: ??INFORMATION SYSTEM RADIOLOGY Avery, ?ON: ??Jan 03 2017 ??4:50P Attending: ??KIM, ??PORFIRIO Requesting: ??KIM, ??PORFIRIO Requesting Fax: ??[phone] Attending Fax: ??[phone] Attending ID: ??[id number] Requesting ID: ??[id number] Report To 1 ID: ?? Report To 1 Name: ??, ?? Report To 1 FAX: ??-- Report To 2 ID: ?? Report To 2 Name: ??, ?? Report To 2 FAX: ??-- NextGen Order #: ?? Procedure Note Miscellaneous, Not In File - 01/03/2017 DATE OF EXAM: Jan 03 2017 4:49PM Acc#: [id number] EMR 0000 - Cancelled MRI Study DIAGNOSIS: [...] IMPRESSION: Thank you, The Radiology Department at [facility] LENS SHAPER GRINDER: TRANSCRIBE DATE/TIME: Jan 03 2017 4:50P RADIOLOGIST: SYSTEM RADIOLOGY Avery READ ON: Jan 03 2017 4:50P ORDERING DR: PORFIRIO RILEY M.D. THIS DOCUMENT HAS BEEN ELECTRONICALLY SIGNED BY: INFORMATION SYSTEM RADIOLOGY Avery, ON: Jan 03 20174:50P Attending: PORFIRIO RILEY Requesting: PORFIRIO RILEY Requesting Attending Attending ID: [id number] Requesting ID: [id number] Report To 1 ID: Report To 1 [...] O RDERABLES Final Result MARY JANE ARNOLD [address] [place] [address] * XR Tibia Fibula 2 VW (01/03/2017 6:54 PM CDT) Anatomical Region Laterality Modality N/A Radiographic Lizeth ging 01/03/2017 6:54 PM CDT Narrative 01/03/2017 6:54 PM CDT DATE OF EXAM: ??Jan 03 2017 ??1:54PM Acc#: ??[id number] ??EDX 0339 - XR Tibia/Fibula 2 Views L ?? DIAGNOSIS: ??ACUTE LEG PAIN,LEFT CLINICAL HISTORY: ?? bilateral leg pain RESULT: EXAMINATION: XR Tibia/Fibula 2 Views L HISTORY: Bilateral leg pain, no injury, sudden onset FINDINGS: Degenerative changes are seen at the knee joint particularly involving the medial joint space. ??No fracture or dislocation. IMPRESSION: Degenerative disease Electronically signed by: Linsey Quigley M.D. ? LENS SHAPER GRINDER: ??PSC TRANSCRIBE DATE/TIME: ??Jan 03 2017 ??3:19P RADIOLOGIST: ??LINSEY QUIGLEY M.D. ??READ ON: ??Jan 03 2017 ??3:21P ORDERING DR: WILLIAMS CRONIN M.D. THIS DOCUMENT HAS BEEN ELECTRONICALLY SIGNED BY: ??LINSEY QUIGLEY M.D. ??ON: ??Jan 03 2017 ??3:19P Attending: ??KIM, ??PORFIRIO Requesting: ??TOMMIE, ??WILLIAMS Requesting Fax: ??[phone] Attending Fax: ??[phone] Attending ID: ??[id number] Requesting ID: ??[id number] Report To 1 ID: ?? Report To 1 Name: ??, ?? Report To 1 FAX: ??-- Report To 2 ID: ?? Report To 2 Name: ??, ?? Report To 2 FAX: ??-- NextGen Order #: ?? Procedure Note Miscellaneous, Not In File / Provider, MD Tyler - 01/03/2017 DATE OF EXAM: Jan 03 2017 1:54PM Acc#: [id number] EDX 0339 - XR Tibia/Fibula 2 Views L DIAGNOSIS: ACUTE LEG PAIN,LEFT CLINICAL HISTORY: bilateral leg pain RESULT: EXAMINATION: XR Tibia/Fibula 2 Views L HISTORY: Bilateral leg pain, no injury, sudden onset FINDINGS: Degenerative changes are seen at the knee joint particularly involving the medial joint space. No fracture or dislocation. IMPRESSION: Degenerative disease Electronically signed by: Linsey Quigley M.D. LENS SHAPER GRINDER: PSC TRANSCRIBE DATE/TIME: Jan 03 2017 3:19P RADIOLOGIST: LINSEY QUIGLEY M.D. READ ON: Jan 03 2017 3:21P ORDERING DR: WILLIAMS CRONIN M.D. THIS DOCUMENT HAS BEEN ELECTRONICALLY SIGNED BY: LINSEY QUIGLEY M.D. ON: Jan 03 2017 3:19P Attending: PORFIRIO RILEY Requesting: WILLIAMS CRONIN Requesting Attending Attending ID: [id number] Requesting ID: [id number] Report To 1 ID: Report To 1 [...] OF EXAM: ??Jan 03 2017 ??1:54PM Acc#: ??[id number] ??EDX 0338 - XR Tibia/Fibula 2 Views [...] Electronically signed by: Linsey Quigley M.D. ? LENS SHAPER GRINDER: ??PSC TRANSCRIBE DATE/TIME: ??Jan 03 2017 ??3:18P RADIOLOGIST: ??LINSEY QUIGLEY M.D. ??READ ON: ??Jan 03 2017 ??3:20P ORDERING DR: WILLIAMS CRONIN M.D. THIS DOCUMENT HAS BEEN ELECTRONICALLY SIGNED BY: ??LIANNA Varela, LINSEY ??ON: ??Jan 03 2017 ??3:18P Attending: ??KIM, ??PORFIRIO Requesting: ??TOMMIE, ??WILLIAMS Requesting Fax: ??[phone] Attending Fax: ??[phone] Attending ID: ??[id number] Requesting ID: ??[id number] Report To 1 ID: ?? Report To 1 Name: ??, ?? Report To 1 FAX: ??-- Report To 2 ID: ?? Report To 2 Name: ??, ?? Report To 2 FAX: ??-- NextGen Order #: ?? Procedure Note Miscellaneous, Not In File / Provider, MD Tyler - 01/03/2017 DATE OF EXAM: Jan 03 2017 1:54PM Acc#: [id number] EDX 0338 - XR Tibia/Fibula 2 Views [...] FINDINGS Electronically signed by: Linsey Quigley M.D. LENS SHAPER GRINDER: PSC TRANSCRIBE DATE/TIME: Jan 03 2017 3:18P RADIOLOGIST: LINSEY QUIGLEY M.D. READ ON: Jan 03 2017 3:20P ORDERING DR: WILLIAMS CRONIN M.D. THIS DOCUMENT HAS BEEN ELECTRONICALLY SIGNED BY: LINSEY QUIGLEY M.D. ON: Jan 03 2017 3:18P Attending: PORFIRIO RILEY Requesting: WILILAMS CRONIN Requesting Attending Attending ID: [id number] Requesting ID: [id number] Report To 1 ID: Report To 1 Name: , Report To 1 FAX: -- Report To 2 ID: Report To 2 Name: , Report To 2 FAX: -- NextGen Order #: us Williams Cronin Jr., MD IMG XR PROCEDURES F inal Result * Glucose POC (01/03/2017 4:54 PM CDT) Glucose, POC 144 70 - 199 mg/dL [facility] Blood specimen (specimen) 01/03/2017 4:54 PM CDT 01/03/2017 4:54 PM CDT us Porfirio Riley MD POINT OF CARE TEST O RDERABLES Final Result MARY JANE [address] [place] [address] * (ABNORMAL) Glucose POC (01/03/2017 12:05 PM CDT) Glucose, POC 210(H) 70 - 199 mg/dL [facility] Blood specimen (specimen) 01/03/2017 12:05 PM CDT 01/03/2017 12:05 PM CDT Porfirio Riley MD POINT OF CARE TEST O RDERABLES Final Result Performing Organization Address [facility] de Phone Number MARY JANE ARNOLD [address] [place] [address] * Glucose POC (01/03/2017 6:14 AM CDT) Glucose, POC 158 70 - 199 mg/dL MARY JANE Blood specimen (specimen) 01/03/2017 6:14 AM CDT 01/03/2017 6:14 AM CDT Porfirio Riley MD POINT OF CARE TEST O RDERABLES Final Result Performing Organization Address [facility] Phone Number B[facility] ARNOLD [address] [place] [address] * Glucose POC (01/03/2017 3:10 AM CDT) Glucose, POC 140 70 - 199 mg/dL MARY JANE Blood specimen (specimen) 01/03/2017 3:10 AM CDT 01/03/2017 3:10 AM CDT Porfirio Riley MD POINT OF CARE TEST O RDERABLES Final Result Performing Organization Address [facility] de Phone Number MARY JANE ARNOLD [address] [place] [address] * LOWER EXTREMITY VENOUS DOPPLER (01/02/2017 11:01 PM CDT) Anatomical Region Laterality Modality N/A Ultrasound 01/02/2017 11:0 1 PM CDT Narrative 01/02/2017 11:01 PM CDT DATE OF EXAM: ??Jan 02 2017 ??6:01PM Acc#: ??[id number] ??CHV 0053 - VL/US Venous Low Ext [...] Electronically signed by: Prince Barcenas M.D. ? LENS SHAPER GRINDER: ??PSC TRANSCRIBE DATE/TIME: ??Jan 03 2017 ??7:50A RADIOLOGIST: ??PRINCE BARCENAS M.D. ??READ ON: ??Jan 03 2017 ??7:52A ORDERING DR: WILLIAMS GODFREY M.D. THIS DOCUMENT HAS BEEN ELECTRONICALLY SIGNED BY: ??SWAPNA Varela, PRNICE ??ON: ??Jan 03 2017 ??7:50A Attending: ??KIM, ??PORFIRIO Requesting: ??GILDA, ??WILLIAMS Requesting Fax: ??-- Attending Fax: ??[phone] Attending ID: ??[id number] Requesting ID: ??[id number] Report To 1 ID: ?? Report To 1 Name: ??, ?? Report To 1 FAX: ??-- Report To 2 ID: ?? Report To 2 Name: ??, ?? Report To 2 FAX: ??-- NextGen Order #: ?? Procedure Note Miscellaneous, Not In File / Provider, MD Tyler - 01/03/2017 DATE OF EXAM: Jan 02 2017 6:01PM Acc#: [id number] [facility] 0053 - VL/US Venous Low Ext L [...] extremity. Electronically signed by: Prince Barcenas M.D. LENS SHAPER GRINDER: [employer] TRANSCRIBE DATE/TIME: Jan 03 2017 7:50A RADIOLOGIST: PRINCE BARCENAS M.D. READ ON: Jan 03 2017 7:52A ORDERING DR: WILLIAMS GODFREY M.D. THIS DOCUMENT HAS BEEN ELECTRONICALLY SIGNED BY: PRINCE BARCENAS M.D. ON: Jan 03 2017 7:50A Attending: PORFIRIO RILEY Requesting: WILLIAMS GODFREY Requesting Fax: -- Attending Attending ID: [id number] Requesting ID: [id number] Report To 1 ID: Report To 1 Name: , Report To 1 FAX: -- Report To 2 ID: Report To 2 Name: , Report To 2 FAX: -- NextGen Order #: us Williams Godfrey MD [facility] PROCEDURES Final Result * Glucose POC (01/02/2017 10:26 PM CDT) Glucose, POC 128 70 - 199 mg/dL M[facility]ANE Blood specimen (specimen) 01/02/2017 10:26 PM CDT 01/02/2017 10:26 PM CDT us Notinfile Unknown POINT OF CARE TEST ORDERABLES Final Result MARY JANE AR[place] [address] Department [place] [address] * Glucose POC (01/02/2017 9:16 PM CDT) Pathologist [facility] Glucose, POC 124 70 - 199 mg/dL [facility] Blood specimen (specimen) 01/02/2017 9:16 PM CDT 01/02/2017 9:16 PM CDT us Notinfile Unknown POINT OF CARE TEST ORDERABLES Final Result Performing Organization Address [facility] Co de Phone Number [facility] [address] [place] [address] * eGFR (01/02/2017 5:10 PM CDT) eGFR 88 mL/min/1.7 3 m2 [facility] Comment: Interpretive Data Reference Interval Normal ?>/= 90 mL/min/1.73m2 Mildly decreased* ? 60 - 89 mL/min/1.73m2 Mildly to moderately decreased ?45 - 59 mL/min/1.73m2 Moderately to severely decreased ??30 - 44 mL/min/1.73m2 Severely decreased ?15 - 29 mL/min/1.73m2 Kidney Failure ?< 15 ??mL/min/1.73m2 *Relative to young adult level If -Belgian multiply value by 1.16. Estimated glomerular filtration [...] Final Res ult Performing Organization Address [facility]/ZIP Co de Phone Number MARY JANE ARNOLD [address] Department [place] [address] * (ABNORMAL) Comprehensive metabolic panel (01/02/2017 5:10 [...] ORDERABLES Final Res ult MARY JANE [place] [address] [place] [address] * (ABNORMAL) CBC without differential (01/02/2017 5:10 PM CDT) WBC 11.96(H) 3.80 - 9.90 K/cumm [facility] CH RBC 4.37 3.90 - 5.20 M/cumm [facility] Hgb 12.6 11.9 - 15.5 g/dL [facility] Hct 39.9 35.6 - 45.5 % [facility] MCV 91.3 81.3 - 96.4 fL [facility] MCH 28.8 27.1 - 33.3 pg [facility] MCHC 31.6(L) 32.3 - 35.7 g/dL [facility] RDW CV 14.0 11.1 - 14.9 % [facility] RDW SD 47.1 35.7 - 48.1 fL [facility] NRBC 0.0 0.0 - 0.2 % [facility] NRBC abs 0.00 0.00 - 0.01 K/cumm [facility] Plt 296 150 - 400 K/cumm [facility] MPV 10.1 9.1 - 12.3 fL [facility] Blood specimen (specimen) 01/02/2017 5:10 PM CDT 01/02/2017 5:15 PM CDT us Williams Godfrey MD LAB BLOOD ORDERABLES Final Res ult [facility] [address] Department [place] [address] documented in this encounter Visit Diagnoses Not on filedocumented in this encounter Care Teams Stitchdown Thread Laster Relationship Specialty Start Date End Date Lavonne Hathaway MD [facility] [place] [address] PCP - General 08/16/16 08/17/17 documented as of this encounter
--- OUTSIDE RECORDS SUMMARY | 2024-04-26 09:31 | XMS_ITS | Encounter Summary ---
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
--- OUTSIDE RECORDS SUMMARY | 2024-04-26 09:31 | XMS_ITS | Encounter Summary ---
Author Organization [facility] Healthcare Address [address] [place] [address] Care Team Providers Care Medical Manager Name Role Phone Lavonne Hathaway MD Primary Care Provider [phone]- [phone] Liu Jerez MD Unavailable [phone] Encounter Details Date Type Department Care Team (Latest Contact Info) Description 08/01/2017 3:51 AM CDT - 08/01/2017 11:59 PM CDT Hospital Encounter [facility] Diagnostic Imaging [address] [place] [address] [place] [address] [place] [address] Discharge Disposition: Discharge to home or self care Social History Tobacco Use Types Packs/Day Years Used Date Smoking Tobacco: Former Smokeless Tobacco: Never Alcohol Use Standard Drinks/Week Comments No 0 (1 standard drink = 0.6 oz pur e alcohol) Comments No Sex and Gender Information Value Date Recorded Sex Assigned at Not on file 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
--- OUTSIDE RECORDS SUMMARY | 2024-04-26 09:31 | XMS_ITS | Encounter Summary ---
Author Organization [facility] Healthcare Address [address] [place] [address] Care Team Providers Care And Taxi Instructor Bus Trolley Name Role Phone Lavonne Hathaway MD Primary Care Provider [phone]- [phone] Encounter Details Date Type Department Care Team (Latest Contact Info) Description 05/31/2017 1:11 PM SECURITY THREAT ANALYST - 05/31/2017 11:59 PM [facility] Hospital Encounter [facility] OP INTERIM [phone] Félix Bowen MD [address] [place] [address] Discharge Disposition: Discharge to home or self care Social History Tobacco Use Types Packs/Day Years Used Date Smoking Tobacco: Former Alcohol Use Standard Drinks/Week Comments No 0 (1 standard drink = 0.6 oz pur e alcohol) Comments Unknown Sex and Gender Information Value Date Recorded Sex Assigned at Not on file Legal Sex Female 12:24 AM SECURITY THREAT ANALYST Gender Identity Not on file Sexual [...] on filedocumented in this encounter Care Teams And Taxi Instructor Bus Trolley Relationship Specialty Start Date End Date Lavonne Hathaway MD [facility] [place] [address] PCP - General 08/16/16 08/17/17 documented as of this encounter
--- OUTSIDE RECORDS SUMMARY | 2024-04-26 09:31 | XMS_ITS | Encounter Summary ---
Author Organization [facility] Address [address] [place] [address] Care Team Providers Care Emergency Preparedness Manager Name Role Phone Lavonne Hathaway MD Primary Care Provider [phone]- [phone] Liu Jerez MD Unavailable [phone] Reason for Visit * Reason Comments Shortness of Breath worsens with exertio n, also fatigue Encounter Details Date Type Department Care Team (Latest Contact Info) Description 07/26/2017 7:07 PM CDT - 07/28/2017 4:21 PM CDT Hospital Encounter 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 A preliminary report was submitted by [facility] on 07/27/2017 at 2:09 AM. Electronically [...] Follow-Up: [place] [address] [facility] [address] patietn may benefit from gastric emptying study. [...] Type of Weight Used forEstimated Protein : [place]. ?? Total Fluid Estimated Needs: 1869 Fluid [...] 07/27/2017 PRIMARY CARE PHYSICIAN: Lavonne Hathaway MD [phone] Subjective Patient is a 62 y.o. female [...] Duration 112 ms QRS-Interval (MSEC) 84 ms [place]V-Interval (MSEC) 131 ms QT Interval 337 ms QTc 394 ms QTC Interval ms P [place] 47 deg QRS [place] 23 deg T [place] 61 deg B-type natriuretic peptide Collection Time: [...] nephrolithiasis. A preliminary report was submitted by [facility] on 07/27/2017 at 2:09 AM. Electronically [...] - 07/28/2017 12:07 PM CDTAssociated Order(s): EGD [facility] Endoscopy Lab Patient Name: Mohsen Marques Procedure Date: 07/28/2017 12:07 PM Date of : 1955 Admit Type: Inpatient Age: 62 Gender: Female Note Status: Finalized Attending MD: Liu Jerez MD Procedure Date: 07/28/2017 Procedure: Upper GI endoscopy Indications: Epigastric abdominal pain Providers: Liu Jerez MD, Tete Khan RESIST COATER DEVELOPER (Anesthesia Staff), Felicitas Pryor RN Referring MD: Medicines: Monitored Anesthesia Care Complications: No immediate complications. Estimated Blood Loss: Estimated blood loss was minimal. Procedure: After obtaining informed consent, the endoscope was passed under direct vision. Throughout the procedure, the patient's blood pressure, pulse, and oxygen saturations were monitored continuously. The scope was passed under direct vision. The Endoscope GIF-Q180 [id number] was introduced through the mouth, and advanced [...] antireflux regimen. Procedure Code(s): --- Professional --- 00784, Esophagogastroduodenoscopy, flexible, transoral; with biopsy, single or multiple Diagnosis Code(s): --- Professional --- K31.9, Disease of stomach and duodenum, unspecified R10.13, Epigastric pain CPT copyright 2014 [employer]. All rights reserved. The codes documented in this report are preliminary and upon conference center manager review may be revised to meet current [...] July 03, 2017 that was performed at [facility] was reviewedand showed normal terminal ileum [...] nephrolithiasis. A preliminary report was submitted by [facility] on 07/27/2017 at 2:09 AM. Electronically [...] Foreign Body, COPD Exacerbation, Pulmonary Embolism, Asthma, [place] / Unstable Angina, SARS, Other: CHF / [...] Duration 112 ms QRS-Interval (MSEC) 84 ms WV-Interval (MSEC) 131 ms QT Interval 337 ms QTc 394 ms QTC Interval ms P [place] 47 deg QRS [place] 23 deg T [place] 61 deg B-type natriuretic peptide Collection Time: [...] PATHOLOGY CH - 07/29/2017 11:56 AM CDT [facility] Department of Pathology [address] [place], [place] [id number] Final Report ?Patient Name: MOHSEN MARQUES Address: Y[place] Service: Medical ??ROSALINA STOUT ??[facility] Location: [facility] E Taken: 07/28/2017 Gender: F Received 07/28/2017 : 1955 (Age: 62) Hospital #: [id number] Accessioned: 07/28/2017 ?? Patient Type: OBS Reported [...] determined by the Surgical Pathology Department at [facility] as part of an ongoing principal quality engineer program and in compliance with [...] characteristics determined by the Surgical Pathology Department [facility]. ??It has not been cleared or approved by the U. S. Food and Drug Administration. Liu Jerez MD LAB PATHOLOGY ORDERABLE S Final Result Performing Organization Address City/State/[facility] Co de Phone Number [place] [phone] [place] [phone] * EGD (07/28/2017 12:07 PM CDT) Anatomical Region Laterality Modality Other Narrative Procedure Note Liu Jerez MD - 07/28/2017 12:07 PM CDT [facility] Endoscopy Lab Patient Name: [...] passed under direct vision. The Endoscope GIF-Q180 [id number] was introduced through the mouth, andadvanced to [...] antireflux regimen. Procedure Code(s): --- Professional --- 99237, Esophagogastroduodenoscopy, flexible,transoral; with biopsy, single or multiple Diagnosis Code(s): --- Professional --- K31.9, Disease of stomach and duodenum,unspecified R10.13, Epigastric pain CPT copyright 2014 [employer]. All rights reserved. The codes documented in this report are preliminary and upon conference center manager reviewmay be revised to meet current compliance [...] ORDERABLES Final Resu lt Performing Organization Address [facility] Co de Phone Number MARY JANE ARNOLD [address] [address] [facility] [employer] [place] [address] * (ABNORMAL) Urinalysis reflex to microscopic (07/27/2017 [...] ORDERABLES Final Resu lt Performing Organization Address [facility] Co de Phone Number MARY JANE [address] [address] Department [place] [address] * (ABNORMAL) Blood culture Blood (07/27/2017 2:58 AM CDT) Pathologist [facility] Direct Specimen Exam Rapid Molecular Analysis: Coagulase negative Staphylococcus species detected by the Verigene Blood Culture Nucleic Acid Test. ??This test does not exclude the possibility of a mixed bacterial infection. Notification of: Coagulase negative Staphylococcus species called to and read back by: Lesia Watson RN [phone] on 07/31/2017 06:12:00 by: Jesús HINTON Comment:Testing performed by : [facility], [address] [place] [address]., [id number] Direct Specimen Exam Stain: Gram Positive Cocci in clusters * ??* ??* ??* ??* ??* ??* ??* ??* ??* ??* ??* ??* ??* ??* ??* ??* ??* ??* ??* Notification of: Gram Positive Cocci in clusters called to and read back by: Lesia Watson RN, on 07/30/2017 19:51:48 by: Noe HINTON Comment:Testing performed by : [facility], [address] [place] [address]., [id number] Report Final Report: Coagulase negative Staphylococcus species Isolate of questionable significance. ??If a similar isolate is recovered from a second blood culture collected within 3 days of this culture, both will be evaluated and, if determined to be related, antimicrobial susceptibility testing will be performed. (.) MARY JANE Comment:Testing performed by : [facility], [address] [place] [address]., [address] Organism COAGULASE NEGATIVE STAPHYLOCOCCUS SPECIES MARY JANE [...] organism identification may be performed using the [employer] Nanosphere Gram Positive Blood Culture Assay. ??The Nanosphere assay detects microbial DNA in positive blood culture broth via hybridization of target DNA to capture oligonucleotides on a microarray. ??This assay has been cleared by the [place] Food and Drug Administration and its performance characteristics have been verified by the [facility] Microbiology Laboratory. Current Interpretive Data was last revised on 2013. us Sandeep Marie MD LAB MICROBIOLOGY - GENE R[place] [address] [address] [place] [address] * CT Chest PE W Contrast (07/27/2017 1:07 AM CDT) Anatomical Region Laterality Modality Body N/A Computed Tomogra phy Impressions 07/27/2017 8:23 AM CDT No evidence of acute pulmonary emboli. Heterogeneous thyroid. ??Recommend dedicated thyroid ultrasound. Right nephrolithiasis. A preliminary report was submitted by [facility] on 07/27/2017 at 2:09 AM. Electronically [...] nephrolithiasis. A preliminary report was submitted by [facility] on 07/27/2017 at 2:09 AM. Electronically signed by: Prince House M.D. us Sandeep Marie MD IMG CT PROCEDURES Final Result [...] ??mL/min/1.73m2 *Relative to young adult level If -Syrian multiply value by 1.16. Estimated glomerular filtration [...] BLOOD ORDERABLES Fi nal Result MARY JANE [address] [place] [address] * (ABNORMAL) Comprehensive metabolic panel [...] PM CDT 07/26/2017 11:59 PM CDT Narrative [facility] - 07/27/2017 12:24 AM CDT us Sandeep Marie MD LAB BLOOD ORDERABLES Fi nal Result [facility] [address] [address] Department [place] [address] * Troponin I (07/26/2017 11:53 PM CDT) Troponin I 0.03 0.00 - 0.14 ng/mL MARY JANE ARNOLD Comment: Interpretive Data Normal: ? 0.00 - 0.14 ng/mL Indeterminate: ?0.15 - 0.50 ng/mL [place] / Cardiac Muscle Damage: ? >0.50 ng/mL Current interpretive data was last reviewed 2015 Blood specimen (specimen) 07/26/2017 11:53 PM CDT 07/27/2017 Narrative MARY JANE ARNOLD - 07/27/2017 12:24 AM CDT us Loren Bonner MD LAB BLOOD ORDERABLES Final Resu lt [facility] [address] [place] [address] * XR Chest 1 View (07/26/2017 9:05 [...] ORDERABLES Final Resu lt MARY JANE ARNOLD [address] [address] [place] [address] * (ABNORMAL) Protime-INR (07/26/2017 9:00 PM CDT) PT 14.4(H) 9.5 - 13.0 sec [facility] INR 1.27(H) 0.90 - 1.20 [facility] Blood specimen (specimen) 07/26/2017 9:00 PM CDT 07/26/2017 9:01 PM CDT Narrative [facility] - 07/26/2017 9:19 PM CDT Loren Bonner MD LAB BLOOD ORDERABLES Final Resu Performing Organization Address [facility] de Phone Number MARY JANE [address] [address] [facility] [employer] [place] [address] * Troponin I (07/26/2017 9:00 PM CDT) Pathologist [facility] Troponin I <0.03 0.00 - 0.14 ng/mL MARY JANE Comment: Interpretive Data Normal: ? 0.00 - 0.14 ng/mL Indeterminate: ?0.15 - 0.50 ng/mL [place] / Cardiac Muscle Damage: ? >0.50 ng/mL Current interpretive data was last reviewed 2015 Blood specimen (specimen) 07/26/2017 9:00 PM CDT 07/26/2017 9:01 PM CDT Narrative MARY JANE - 07/26/2017 9:23 PM CDT Loren Bonner MD LAB BLOOD ORDERABLES Final Resu Performing Organization Address [facility] de Phone Number MARY JANE [address] [address] [facility] [employer] [place] [address] * D-dimer, quantitative (07/26/2017 9:00 PM CDT) [facility] D-dimer <150 150 - 230 ng/mL D-DU [...] ORDERABLES Final Resu lt Performing Organization Address [facility] Co de Phone Number MARY JANE ARNOLD [address] [employer] [place] [address] * (ABNORMAL) CBC with auto differential (07/26/2017 9:00 PM CDT) Pathologist [facility] WBC 16.51(H) 3.80 - 9.90 K/cumm [facility] [...] ORDERABLES Final Resu lt MARY JANE ARNOLD [address] [facility] [employer] [place] [address] * B-type natriuretic peptide (07/26/2017 9:00 PM CDT) Pathologist [facility] B-Type Natriuretic Peptide (BNP) 27 0 - 100 pg/mL MARY JANE Blood specimen (specimen) 07/26/2017 9:00 PM CDT 07/26/2017 9:01 PM CDT Narrative MARY JANE ARNOLD - 07/26/2017 9:26 PM CDT Loren Bonner MD LAB BLOOD ORDERABLES Final Resu lt Performing Organization Address City/[facility] Co de Phone Number MARY JANE [address] [address] [place] [address] * ECG 12 lead (07/26/2017 7:12 PM CDT) Patient age 62 years [facility] Interpretation Text SINUS RHYTHMNORMAL ECGPREVIOUS TRACIN01/30/2017 10.25No significant change compared to prior ECG [facility] Comment:Physician Interprete r Dr. Humberto Armas M.D. Ventricular Rate EKG/Min 93 /min [facility] P Wave Duration 112 ms [facility] QRS-Interval (MSEC) 84 ms [facility] WV-Interval (MSEC) 131 ms [facility] QT Interval 337 ms [facility] QTc 394 ms [facility] QTC Interval ms [facility] P [place] 47 deg [facility] QRS [place] 23 deg [facility] T [place] 61 deg [facility] 07/26/2017 7:12 PM CDT Loren Bonner MD ECG ORDERABLES Final Result Performing Organization Address [facility] de Phone Number [facility] documented in this encounter Visit [...] solution 3 mL 3 mL, nebulization, Once (respiratory scientist), On Mon07/26/17 at 2100, For 1 dose, Indications: Chronic Obstructive Pulmonary Disease with BronchospasmsIndications:Ch ronic Obstructive Pulmonary Disease with Bronchospasms Given 07/26/2017 8:54 PM CDT 3 mL ipratropium-albuterol (DUO-NEB) 0.5-2.5 mg/3 mL nebulizer solution 3 mL 3 mL, nebulization, Every 4 hours PRN (respiratory scientist), wheezing, shortness of breath, Starting on Mon07/27/17 [...] Lila Arita RN - Reason: Patient/family refused)1114 ([facility] Hold - Provider: Automatic Transfer Provider - Reason: Patient not available)140 ([facility] Unhold - Provider: Automatic Transfer Provider)1600 (Due - Provider: Automatic Transfer Provider) ipratropium-albuterol (DUO-NEB) 0.5-2.5 mg/3 mL nebulizer solution 3 mL (COMPLETED) 3 mL, nebulization, Once (respiratory scientist), On Mon07/26/17 at 2100, For 1 dose, Indications: Chronic Obstructive Pulmonary Disease with Bronchospasms 2053 (Given - Provider: Shanthi Ac, PLASTER TENDER) levoFLOXacin (LEVAQUIN) 750 mg/150 mL premix IVPB [...] 0822 (Given - Provider: Lila Arita RN)1114 ([facility] Hold - Provider: Automatic Transfer Provider - Reason: Patient not available)1401 ([facility] Unhold - Provider: Automatic Transfer [...] Other - Comment: Per Dr Jerez's order)1114 ([facility] Hold - Provider: Automatic Transfer Provider - Reason: Patient not available)1401 ([facility] Unhold - Provider: Automatic Transfer Provider) rOPINIRole (REQUIP) tablet 5 mg (CANCELED) 5 mg, oral, Nightly, First dose on Mon07/26/17 at 2300 0002 (Given - Provider: Margaret Barcenas RN) rOPINIRole (REQUIP) tablet 5 mg 5 mg, oral, Nightly, First dose on Mon07/27/17 at 2100, Pt home med 2021 (Given - Provider: Mary De RN) 1114 ([facility] Hold - Provider: Automatic Transfer Provider - Reason: Patient not available)1401 ([facility] Unhold - Provider: Automatic Transfer [...] mL, nebulization, Every 4 hours PRN (respiratory scientist), wheezing, shortness of breath, Starting on Valeri 07/27/17 at 1357, Indications: Chronic Obstructive Pulmonary Disease with Bronchospasms 1114 ([facility] Hold - Provider: Automatic Transfer Provider - Reason: Patient not available)1401 ([facility] Unhold - Provider: Automatic Transfer [...] Starting on Valeri 07/27/17 at 0509 1114 ([facility] Hold - Provider: Automatic Transfer Provider - Reason: Patient not available)1401 ([facility] Unhold - Provider: Automatic Transfer [...] 07/27/2017 documented in this encounter Care Teams Emergency Preparedness Manager Relationship Specialty Start Date End Date Lavonne Hathaway MD [facility] [place] [address] PCP - General 08/16/16 08/17/17 Liu Jerez MD [facility] [place] [address] Consulting Physician Gastroenterology 07/28/17 documented as of this encounter
--- OUTSIDE RECORDS SUMMARY | 2024-04-26 09:31 | XMS_ITS | Encounter Summary ---
Author Organization [facility] Healthcare Address [address] [place] [address] Care Team Providers Care Equipment Operator Warehouse Name Role Phone Lavonne Hathaway MD Primary Care Provider [phone]- [phone] Encounter Details Date Type Department Care Team (Latest Contact Info) Description 01/06/2017 4:08 PM CDT - 01/06/2017 11:59 PM CDT Hospital Encounter [facility] [place] [address] [address] Discharge Disposition: Discharge to home or self care Social History Tobacco Use Types Packs/Day Years Used Date Smoking Tobacco: Former Alcohol Use Standard Drinks/Week Comments No 0 (1 standard drink = 0.6 oz pur e alcohol) Comments Unknown Sex and Gender Information Value Date Recorded Sex Assigned at Not on file 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
--- OUTSIDE RECORDS SUMMARY | 2024-04-26 09:31 | XMS_ITS | Encounter Summary ---
Author Organization [facility] Healthcare Address [address] [place] [address] Care Team Providers Care Photographic Spotter Name Role Phone Lavonne Hathaway MD Primary Care Provider [phone]- [phone] Encounter Details Date Type Department Care Team (Late st Contact Info) Description 01/30/2017 10:20 AM CDT - 01/30/2017 4:37 PM CDT Emergency [facility] Emergency Department [address] [place] [address] Karlos Cervantes MD [address] [place], [place] [id number] [place] [address] Discharge Disposition: Left Against Medical Advice Social History Tobacco Use Types Packs/Day Years Used Date Smoking Tobacco: Former Alcohol Use Standard Drinks/Week Comments No 0 (1 standard drink = 0.6 oz pur e alcohol) Comments Unknown Sex and Gender Information Value Date Recorded Sex Assigned at Not on file 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 [...] Electronically signed by: Shira Gaspar M.D. ? BREAKER TABLE WORKER: ??PSC TRANSCRIBE DATE/TIME: ??Jan ??2016 12:18P RADIOLOGIST: ??SHIRA GASPAR M.D. ??READ ON: ??Jan ??2016 12:20P ORDERING DR: KARLOS CERVANTES M.D. THIS DOCUMENT HAS BEEN ELECTRONICALLY SIGNED BY: ??SHIRA GASPAR M.D. ??ON: ??Jan ??2016 12:18P Attending: ??ALLISON, ??LAVONNE Requesting: ??BILLY, ??KARLOS Requesting Fax: ??[phone] Attending Fax: ??[phone] Attending ID: ??[id number] Requesting ID: ??[id number] Report To 1 ID: ?? Report To 1 Name: ??, ?? Report To 1 FAX: ??-- Report To 2 ID: ?? Report To 2 Name: ??, ?? Report To 2 FAX: ??-- NextGen Order #: ?? Procedure Note Miscellaneous, Not In File / Provider, MD Tyler - 01/30/2017 DATE OF EXAM: Jan 30 2017 11:26AM Acc#: [id number] EDX 0031 - XR Chest Portable DIAGNOSIS: [...] congestion. Electronically signed by: Shira Gaspar M.D. BREAKER TABLE WORKER: KOWN TRANSCRIBE DATE/TIME: Jan 30 2017 12:18P RADIOLOGIST: SHIRA GASPAR M.D. READ ON: Jan 30 2017 12:20P ORDERING DR: KARLOS CERVANTES M.D. THIS DOCUMENT HAS BEEN ELECTRONICALLY SIGNED BY: SHIRA GASPAR M.D. ON: Jan 30 2017 12:18P Attending: LAVONNE COOPER Requesting: KARLOS CERVANTES Requesting Attending Attending ID: [id number] Requesting ID: [id number] Report To 1 ID: Report To 1 [...] ORDERABLES Fi nal Result Performing Organization Address City/[facility] Co de Phone Number [facility] [address] [facility] [address] [place] [address] * TSH (01/30/2017 11:53 AM CDT) Thyroid Stimulating Hormone 2.34 0.45 - 5.33 mcIUnit/mL [facility] Blood specimen (specimen) 01/30/2017 11:53 AM CDT 01/30/2017 12:04 PM CDT Karlos Cervantes MD LAB BLOOD ORDERABLES Fi nal Result Performing Organization Address [facility] Co de Phone Number [facility] [address] [facility] [address] [place] [address] * T4, total (01/30/2017 11:53 AM CDT) T4 8.6 6.1 - 12.2 mcg/dL [facility] Blood specimen (specimen) 01/30/2017 11:53 AM CDT 01/30/2017 12:04 PM CDT Karlos Cervantes MD LAB BLOOD ORDERABLES Fi nal Result Performing Organization Address [facility] Co de Phone Number [facility] [address] [facility] [address] [place] [address] * B-type natriuretic peptide (01/30/2017 11:53 AM CDT) B-Type Natriuretic Peptide (BNP) 30 0 - 100 pg/mL [facility] Blood specimen (specimen) 01/30/2017 11:53 AM CDT 01/30/2017 12:04 PM CDT Karlos Cervantes MD LAB BLOOD ORDERABLES Fi nal Result Performing Organization Address [facility] de Phone Number [facility] [address] [place] [address] * Troponin I (01/30/2017 11:53 AM CDT) [...] ORDERABLES Fi nal Result Performing Organization Address [facility] de Phone Number [facility] [address] [place] [address] * eGFR (01/30/2017 11:53 AM CDT) Pathologist [facility] eGFR 90 mL/min/1.7 3 m2 [facility] Comment: Interpretive Data Reference Interval Normal ?>/= 90 mL/min/1.73m2 Mildly decreased* ? 60 - 89 mL/min/1.73m2 Mildly to moderately decreased ?45 - 59 mL/min/1.73m2 Moderately to severely decreased ??30 - 44 mL/min/1.73m2 Severely decreased ?15 - 29 mL/min/1.73m2 Kidney Failure ?< 15 ??mL/min/1.73m2 *Relative to young adult level If -Bahrain[place] multiply value by 1.16. Estimated glomerular filtration [...] Cervantes MD LAB BLOOD ORDERABLES nal Result [facility] [address] Department [place] [address] * Comprehensive metabolic panel (01/30/2017 [...] ORDERABLES Fi nal Result Performing Organization Address City/[facility] Co de Phone Number MARY [facility] [address] [place] [address] * (ABNORMAL) Protime-INR (01/30/2017 11:53 AM CDT) PT 17.2(H) 9.5 - 13.0 sec [facility] INR 1.51(H) 0.90 - 1.20 [facility] Blood specimen (specimen) 01/30/2017 11:53 AM CDT 01/30/2017 12:04 PM CDT Karlos Cervantes MD LAB BLOOD ORDERABLES Fi nal Result Performing Organization Address [facility] Co de Phone Number [facility] [address] [facility] [address] [place] [address] * (ABNORMAL) Differential, auto (01/30/2017 11:53 AM [...] ORDERABLES Fi nal Result Performing Organization Address City/[facility] Co de Phone Number [facility] [place]N[facility] [address] Department [place] [address] [place] [address] * (ABNORMAL) CBC with auto differential (01/30/2017 11:53 AM CDT) Pathologist [facility] WBC 10.32(H) 3.80 - 9.90 K/cumm [facility] RBC 4.39 3.90 - 5.20 M/cumm [facility] Hgb 12.6 11.9 - 15.5 g/dL [facility] Hct 39.8 35.6 - 45.5 % [facility] MCV 90.7 81.3 - 96.4 fL [facility] MCH 28.7 27.1 - 33.3 pg [facility] MCHC 31.7(L) 32.3 - 35.7 g/dL [facility] RDW CV 14.2 11.1 - 14.9 % [facility] RDW SD 47.9 35.7 - 48.1 fL [facility] Plt 298 150 - 400 K/cumm [facility] MPV 9.8 9.1 - 12.3 fL [facility] NRBC 0.0 0.0 - 0.2 % [facility] NRBC abs 0.00 0.00 - 0.01 K/cumm [facility] Blood specimen (specimen) 01/30/2017 11:53 AM CDT 01/30/2017 12:04 PM CDT Karlos Cervantes MD LAB BLOOD ORDERABLES Fi nal Result [facility] [place] [address] [place] [address] * DISCHARGE LABORATORY CUMULATIVE REPORT (01/30/2017 12:00 AM CDT) Narrative 01/30/2017 12:00 AM CDT Ordered by an unspecified provider. us Historical Provider LAB BLOOD ORDERABLES Deann l Result * ELECTROCARDIOGRAPHY (ECG) (01/30/2017) us Provider Scanning ECG ORDERABLES Final Result documented in this encounter Visit Diagnoses Not on filedocumented in this encounter Care Teams Photographic Spotter Relationship Specialty Start Date End Date Lavonne Hathaway MD [address] [place] [address] [place] [address] PCP - General 08/16/16 08/17/17 documented as of this encounter
--- OUTSIDE RECORDS SUMMARY | 2024-04-26 09:31 | XMS_ITS | Encounter Summary ---
Author Organization [facility] Address [address] [place] [address] Care Team Providers Care Informatica Developer Name Role Phone Lavonne Hathaway MD Primary Care Provider [phone]- [phone] Liu Jerez MD Unavailable [phone] Encounter Details Date Type Department Care Team (Late st Contact Info) Description 07/28/2017 11:57 AM CDT Anesthesia Event [facility] GI Lab [address] [place] [address] Keith Andrews MD [address] [place], [place] [id number] Anesthesia Record Procedure Summary Procedure Name Responsible [...] on file 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 Informed Consent: Discussed plan with METALLIC YARN SLITTING MACHINE OPERATOR. Anesthesia plan and risks discussed with [...] mg documented in this encounter Care Teams Informatica Developer Relationship Specialty Start Date End Date Lavonne Hathaway MD [address] [place] [address] [place] [address] PCP - General 08/16/16 08/17/17 Liu Jerez MD [address] [place] [address] [place] [address] Consulting Physician Gastroenterology 07/28/17 documented as of this encounter
--- OUTSIDE RECORDS SUMMARY | 2024-04-26 09:31 | XMS_ITS | Encounter Summary ---
Author Organization [facility] Healthcare Address [address] [place] [address] Care Team Providers Care Electrical Worker Name Role Phone Lavonne Hathaway MD Primary Care Provider [phone]- [phone] Encounter Details Date Type Department Care Team (Latest Contact Info) Description 05/11/2017 2:51 PM JOB COMPOSITOR - 05/16/2017 11:59 PM [facility] Hospital Encounter [facility] OP INTERIM [phone] Khris Arthur MD [address] [facility] [address] [place] [address] Discharge Disposition: Discharge to home or self care Social History Tobacco Use Types Packs/Day Years Used Date Smoking Tobacco: Former Alcohol Use Standard Drinks/Week Comments No 0 (1 standard drink = 0.6 oz pur e alcohol) Comments Unknown Sex and Gender Information Value Date Recorded Sex Assigned at Not on file Legal Sex Female 12:24 AM JOB COMPOSITOR Gender Identity Not on file Sexual Orientation [...] DIFFERENTIAL Routine Gen Lab 05/16/2017 2:19 PM JOB COMPOSITOR COMPREHENSIVE METABOLIC PANEL STAT 05/16/2017 2:19 PM JOB COMPOSITOR DISCHARGE LABORATORY CUMULATIVE REPORT 05/11/2017 12:00 AM JOB COMPOSITOR documented in this encounter Results * (ABNORMAL) CBC with auto differential (05/16/2017 2:19 PM JOB COMPOSITOR) [facility] WBC 9.2 3.8 - 9.8 K/cumm [facility] RBC 4.49 3.90 - 5.00 M/cumm [facility] Hgb 12.4 12.1 - 15.1 g/dL [facility] Hct 38.6 36.1 - 44.3 % [facility] Mean Cellular Volume - CAM 85.9 80.0 - 97.6 fL [facility] Mean Cellular Hemoglobin - CAM 27.7 26.7 - 33.7 pg [facility] Mean Cellular Hemoglobin Concentration - CAM 32.3(L) 32.7 - 35.5 g/dL [facility] Rdw 14.5 11.8 - 14.6 % [facility] Plt 358 140 - 440 K/cumm [facility] Mean Platelet Volume - CAM 7.6 6.8 - 10.4 fL [facility] Neutrophil pct 64.5 38.7 - 74.5 % [facility] Lymphocyte pct 23.8 20.0 - 54.3 % [facility] Monos 8.6 4.3 - 13.5 % [facility] Eosinophil pct 2.6 0.0 - 6.0 % [facility] Basophil pct 0.5 0.0 - 3.0 % [facility] Neutrophil abs 5.9 1.8 - 6.6 K/cumm [facility] Lymphocyte abs 2.2 1.2 - 3.3 K/cumm [facility] Monocyte abs 0.8 0.2 - 1.2 K/cumm [facility] Eosinophils, abs 0.2 0.0 - 0.5 K/cumm [facility] Basophil abs 0.1 0.0 - 0.2 K/cumm [facility] NRBC 0.1 0.0 - 0.2 % [facility] NRBC abs 0.01 0.00 - 0.01 K/cumm [facility] Blood specimen (specimen) 05/16/2017 2:19 PM JOB COMPOSITOR 05/16/2017 2:22 PM JOB COMPOSITOR Narrative [facility] - 05/16/2017 2:27 PM JOB COMPOSITOR us Khris Arthur MD LAB BLOOD ORDERABLES Final Result [facility] Department [place] [address] * (ABNORMAL) Comprehensive metabolic panel (05/16/2017 2:19 PM JOB COMPOSITOR) Sodium 137 135 - 145 mmol/L [facility] Potassium, pl 4.7 3.3 - 4.9 mmol/L [facility] CO2 27 22 - 32 mmol/L [facility] BUN 16 8 - 25 mg/dL [facility] Glucose 126 70 - 199 mg/dL [facility] Comment: [...] 2017. Creatinine 0.95 0.60 - 1.10 mg/dL [facility] Calcium 9.6 8.5 - 10.3 mg/dL [facility] Chloride 102 97 - 110 mmol/L [facility] Albumin 3.9 3.5 - 5.0 g/dL [facility] AST 25 10 - 45 Units/L [facility] ALT 20 7 - 45 Units/L [facility] Alk phos 74 40 - 130 Units/L [facility] Bilirubin, total 0.3 0.1 - 1.2 mg/dL [facility] Protein, pl 9.1(H) 6.5 - 8.5 g/dL [facility] Anion gap 8 2 - 15 mmol/L [facility] Blood specimen (specimen) 05/16/2017 2:19 PM JOB COMPOSITOR 05/16/2017 2:34 PM JOB COMPOSITOR Narrative [facility] - 05/16/2017 2:56 PM JOB COMPOSITOR us Khris Arthur MD LAB BLOOD ORDERABLES Final Result [facility] Department [place] [address] * DISCHARGE LABORATORY CUMULATIVE REPORT (05/11/2017 12:00 AM JOB COMPOSITOR) Narrative 05/11/2017 12:00 AM JOB COMPOSITOR Ordered by an unspecified provider. us Historical Provider LAB BLOOD ORDERABLES Deann l Result documented in this encounter Visit Diagnoses Not on filedocumented in this encounter Care Teams Electrical Worker Relationship Specialty Start Date End Date Lavonne Hathaway MD [address] [place] [address] [place] [address] PCP - General 08/16/16 08/17/17 documented as of this encounter
--- OUTSIDE RECORDS SUMMARY | 2024-04-26 09:31 | XMS_ITS | Encounter Summary ---
Author Organization [facility] Healthcare Address [address] [place] [address] Care Team Providers Care Financial Aid Manager Name Role Phone Lavonne Hathaway MD Primary Care Provider [phone]- [phone] Liu Jerez MD Unavailable Albert Corbin MD Unavailable Reason for Visit * Reason Comments Shortness of Breath for the past week Nausea Encounter Details Date Type Department Care Team (Late st Contact Info) Description 07/31/2017 10:06 PM CDT - 08/03/2017 5:41 PM CDT Emergency [facility] [id number] [place] [address] [place] [address] [facility] [address] [place], [place] [id number] [place] [address] [phone] [place] [address] [place] [phone] [place] [address] [address] Chest pain, unspecified type (Primary Dx) Discharge [...] Care Physician at Discharge: Lavonne Hathaway MD [phone] Date Of Service: 08/03/2017 Admission Date: 07/31/2017 [...] as an outpatient. She will follow with [facility] as scheduled. Echo showed mild pulmonary hypertension-pt [...] Complete W Doppler/cf Result Date: 08/03/2017 Narrative: [place] [address] Echocardiogram Report Patient Name: MOHSEN MARQUES : 1955 Study Date: 08/03/2017 1:46:17 PM Gender: F Tech: Location: [facility] Ref.Physician: Height(Cm): 155 BSA: 2.32 Weight(Kg): 125 [...] nephrolithiasis. A preliminary report was submitted by [facility] on 07/27/2017 at 2:09 AM. [...] primary care provider Lavonne Hathaway MD [address] [place] [address] [place] [address] [facility] [address] [place] [phone] follow [place] 2 [place] [address] [facility] H2335 [facility] [phone] follow up pulmonary for re evaluation of sleep apnea, repeat sleep study due to mild pulmonary hypertension Discharge Time:Greater than 30 minutes Elo Aceves MD Hospitalists [phone] 08/03/2017 5:00 PM documented in this encounter [...] nephrolithiasis. A preliminary report was submitted by [facility] on 07/27/2017 at 2:09 AM. Electronically signed by: Prince House M.D. Assessment/Plan 1. Chest pressure: ?? LHC in 2013 without significant CAD. ??Stress 11/02/16 with 65% of MPHR at [facility] in Care Everywhere. Ct chest negative for PE 4-5-f/u outpt for evaluation of thyroid.. Telemetry. SD has been ruled out via serial troponins. [...] nephrolithiasis. A preliminary report was submitted by [facility] on 07/27/2017 at 2:09 AM. Electronically signed by: Prince House M.D. Assessment/Plan All assessments present on admission unless otherwise specified 1. Chest pressure: She has a LIN score of 1 and and intermediate Wellen pre- test probability for PE. [facility] in 2013 without significant CAD. Stress 11/02/16 with 65% of MPHR at [facility] in Care Everywhere. PE less likely as she has been on xarelto. Telemetry. SD has been ruled out via serial troponins [...] received a CONS blood culture result in [facility]. Suspected contaminant but called patient to see [...] nephrolithiasis. A preliminary report was submitted by [facility] on 07/27/2017 at 2:09 AM. [...] intermediate Wellen pre- test probability for PE. [facility] in 2013 without significant CAD. Stress 11/02/16 with 65% of MPHR at [facility] in Care Everywhere. We don't have the full results of the 2017 stress test. We can rule her out for SD with serial troponins and get that stress [...] out acute cardiac event. [facility] [...] ago. The patient was recently admitted to [facility] for evaluation of generalized weakness. The patient states she was called by , hospitalist, alejandra about a positive blood culture. The patient decided to present to theED as she is still SOB and feeling unwell. She denies chest pain, but reports a pushing sensationto her chest, as well as awwlix-emy-[id number] episodes of nausea. The patient denies history of pneumonia, SD, and stroke. She also denies smoking and alcohol use. There are no other complaints at this time. The patient was admitted to [facility], from 07/26/17 to 07/28/17. While admitted, thepatient [...] and actions. Enmanuel Dubon MD 08/01/17 0515 Enmanuel Dubon MD 08/01/17 0535 * Margaret Barcenas [...] PM CDT Narrative 08/03/2017 4:25 [place] [address] Echocardiogram Report Patient Name: MOHSEN MARQUES : 1955 Study Date: 08/03/2017 1:46:17 PM Gender: F Tech: Location: [facility] Ref.Physician: Height(Cm): 155 BSA: 2.32 Weight(Kg): 125 [...] Procedure Note Deepa Mchugh MD - 08/03/2017 [place] [address] Echocardiogram Report Patient Name: MOHSEN MARQUESPatient ID: [id number] : [id number] Date: 08/03/2017 1:46:17 PM Gender: FAccession #: [id number] Tech: SRLocation: [id number] Ref.Physician: Height(Cm): 155 BSA: [...] - 100 ] msec MVA2.90 MV Decel [id number] [ 104 - 258 ] msec PV [...] MD 2017-08-03 16:25:18 CDT CC: CC: Result [facility] Elo Aceves MD CV ECHO PROCEDURES Final Result * Glucose POC (08/03/2017 12:17 PM CDT) Glucose, POC 160 70 - 199 mg/dL MARY JANE Blood specimen (specimen) 08/03/2017 12:17 PM CDT 08/03/2017 12:17 PM CDT Narrative MARY JANE - 08/03/2017 12:19 PM CDT Elo Aceves MD POINT OF CARE TEST ORDERABLES Final Result MARY JANE ARNOLD [address] [address] Department [place] [address] * CT Chest Abdomen W [...] JANE ARNOLD - 08/03/2017 7:52 AM CDT Elo Aceves MD POINT OF CARE TEST ORDERABLES Final Result MARY JANE ARNOLD [address] [address] Department [place] [address] * Urine culture Urine, bladder (08/03/2017 5:50 AM CDT) Report Final Report: Insignifican t growth based on current clinical standards. MARY JANE ARNOLD Comment:Testing performed by : [facility], [address] [facility], [place]., [address] Urine, bladder 08/03/2017 5: 50 AM CDT 08/03/2017 7:52 AM CDT Narrative [facility] - 08/04/2017 9:16 AM CDT Indications for Culture:->Recent positive UA Elo Aceves MD LAB MICROBIOLOGY - GENERAL ORDERABLES Final Result MARY JANE [address] Department [place] [address] * (ABNORMAL) Differential, auto (08/03/2017 5:44 AM CDT) Neutrophil abs 7.1(H) 1.7 - 6.5 K/cumm [facility] Imm gran abs 0.0 0.0 - 0.1 K/cumm [facility] Lymphocyte abs 2.5 0.8 - 3.3 K/cumm [facility] Monocyte abs 0.7 0.2 - 0.8 K/cumm [facility] Eosinophil abs 0.4 0.0 - 0.5 K/cumm [facility] Basophil abs 0.0 0.0 - 0.1 K/cumm [facility] Neutrophil pct 65.6 % [facility] Comment: Interpretive Data Percent cell count reference ranges are not reported, since discordance with absolute values may lead to misinterpretation of CBC data. Current Interpretive Data was last revised on 2017. Imm gran pct 0.4 % [facility] Comment: Interpretive Data Percent cell count reference ranges are not reported, since discordance with absolute values may lead to misinterpretation of CBC data. Current Interpretive Data was last revised on 2017. Lymphocyte pct 23.4 % [facility] Comment: Interpretive Data Percent cell count reference ranges are not reported, since discordance with absolute values may lead to misinterpretation of CBC data. Current Interpretive Data was last revised on 2017. Monocyte pct 6.8 % [facility] Comment: Interpretive Data Percent cell count reference ranges are not reported, since discordance with absolute values may lead to misinterpretation of CBC data. Current Interpretive Data was last revised on 2017. Eosinophil pct 3.4 % [facility] Comment: Interpretive Data Percent cell count reference ranges are not reported, since discordance with absolute values may lead to misinterpretation of CBC data. Current Interpretive Data was last revised on 2017. Basophil pct 0.4 % [facility] Comment: Interpretive Data Percent cell count reference ranges are not reported, since discordance with absolute values may lead to misinterpretation of CBC data. Current Interpretive Data was last revised on 2017. Blood specimen (specimen) 08/03/2017 5:44 AM CDT 08/03/2017 5:56 AM CDT Narrative [facility] - 08/03/2017 6:06 AM CDT Remi Garza MD LAB BLOOD ORDERABLES F inal Result Performing Organization Address City/[facility]/ZIP Co de Phone Number [facility] [address] [address] [place] [address] * Glucose POC (08/03/2017 5:44 AM CDT) Pathologist [facility] Glucose, POC 163 70 - 199 mg/dL [facility] Blood specimen (specimen) 08/03/2017 5:44 AM CDT 08/03/2017 5:44 AM CDT Narrative [facility] - 08/03/2017 5:47 AM CDT Elo Aceves MD POINT OF CARE TEST ORDERABLES Final Result Performing Organization Address [facility] Co de Phone Number [facility] [address] [address] Department [place] [address] * (ABNORMAL) CBC with auto differential (08/03/2017 5:44 AM CDT) WBC 10.86(H) 3.80 - 9.90 K/cumm [facility] RBC 3.95 3.90 - 5.20 M/cumm [facility] Hgb 10.8(L) 11.9 - 15.5 g/dL [facility] Hct 34.6(L) 35.6 - 45.5 % [facility] MCV 87.6 81.3 - 96.4 fL [facility] MCH 27.3 27.1 - 33.3 pg [facility] MCHC 31.2(L) 32.3 - 35.7 g/dL [facility] RDW CV 15.2(H) 11.1 - 14.9 % [facility] RDW SD 48.8(H) 35.7 - 48.1 fL [facility] Plt 297 150 - 400 K/cumm [facility] MPV 9.9 9.1 - 12.3 fL [facility] NRBC abs 0.00 0.00 - 0.01 K/cumm [facility] Blood specimen (specimen) 08/03/2017 5:44 AM CDT 08/03/2017 5:56 AM CDT Narrative [facility] - 08/03/2017 6:06 AM CDT Remi Garza MD LAB BLOOD ORDERABLES F inal Result Performing Organization Address [facility] Co de Phone Number [facility] [address] [address] Department [place] [address] * Magnesium (08/03/2017 5:44 AM CDT) Magnesium 1.9 1.8 - 2.6 mg/dL [facility] Blood specimen (specimen) 08/03/2017 5:44 AM CDT 08/03/2017 6:01 AM CDT Narrative [facility] - 08/03/2017 6:21 AM CDT Remi Garza MD LAB BLOOD ORDERABLES F inal Result Performing Organization Address [facility] Co de Phone Number [facility] [address] [address] Department [place] [address] * Glucose POC (08/03/2017 3:26 AM CDT) Glucose, POC 151 70 - 199 mg/dL [facility] Blood specimen (specimen) 08/03/2017 3:26 AM CDT 08/03/2017 3:26 AM CDT Narrative [facility] - 08/03/2017 3:27 AM CDT Elo Aceves MD POINT OF CARE TEST ORDERABLES Final Result MARY JANE ARNOLD [address] [address] Department [place] [address] * Glucose POC (08/03/2017 12:39 AM CDT) Glucose, POC 161 70 - 199 mg/dL [facility] Blood specimen (specimen) 08/03/2017 12:39 AM CDT 08/03/2017 12:39 AM CDT Narrative MARY JANE - 08/03/2017 12:40 AM CDT Elo Aceves MD POINT OF CARE TEST ORDERABLES Final Result Performing Organization Address [facility] Co de Phone Number MARY JANE ARNOLD [address] [address] Department [place] [address] * DISCHARGE LABORATORY CUMULATIVE REPORT (08/03/2017 12:00 [...] TEST ORDERABLES Final Result Performing Organization Address City/[facility]/ZIP Co de Phone Number MARY JANE ARNOLD [address] [address] Department [place] [address] * Glucose POC (08/02/2017 2:35 PM CDT) Glucose, POC 116 70 - 199 mg/dL MARY JANE CATALINA Blood specimen (specimen) 08/02/2017 2:35 PM CDT 08/02/2017 2:35 PM CDT Narrative MARY JANE ARNOLD - 08/02/2017 2:36 PM CDT Elo Aceves MD POINT OF CARE TEST ORDERABLES Final Result MARY JANE [address] [address] Department [place] [address] * NM Gastric Emptying Study (08/02/2017 2:17 [...] Glucose, POC 148 70 - 199 mg/dL [facility] Blood specimen (specimen) 08/02/2017 8:35 AM CDT 08/02/2017 8:35 AM CDT Narrative [facility] - 08/02/2017 8:37 AM CDT us Elo Aceves MD POINT OF CARE TEST ORDERABLES Final Result [facility] [address] [address] Department [place] [address] * (ABNORMAL) Differential, auto (08/02/2017 5:31 AM CDT) Neutrophil abs 6.53(H) 1.70 - 6.50 K/cumm [facility] Imm gran abs 0.0 0.0 - 0.1 K/cumm [facility] Lymphocyte abs 2.9 0.8 - 3.3 K/cumm [facility] Monocyte abs 0.9(H) 0.2 - 0.8 K/cumm [facility] Eosinophil abs 0.4 0.0 - 0.5 K/cumm [facility] Basophil abs 0.0 0.0 - 0.1 K/cumm [facility] Neutrophil pct 60.5 % MARY JANE Comment: Interpretive Data Percent cell count reference ranges are not reported, since discordance with absolute values may lead to misinterpretation of CBC data. Current Interpretive Data was last revised on 2017. Imm gran pct 0.4 % MARY JANE [...] BLOOD ORDERABLES F inal Result MARY JANE [address] [address] Department [place] [address] * (ABNORMAL) CBC with auto differential (08/02/2017 5:31 AM CDT) WBC 10.78(H) 3.80 - 9.90 K/cumm [facility] RBC 3.97 3.90 - 5.20 M/cumm [facility] Hgb 10.7(L) 11.9 - 15.5 g/dL [facility] Hct 35.4(L) 35.6 - 45.5 % [facility] MCV 89.2 81.3 - 96.4 fL [facility] MCH 27.0(L) 27.1 - 33.3 pg [facility] MCHC 30.2(L) 32.3 - 35.7 g/dL [facility] RDW CV 15.3(H) 11.1 - 14.9 % [facility] RDW SD 50.3(H) 35.7 - 48.1 fL [facility] Plt 300 150 - 400 K/cumm [facility] MPV 9.9 9.1 - 12.3 fL [facility] NRBC abs 0.00 0.00 - 0.01 K/cumm [facility] Blood specimen (specimen) 08/02/2017 5:31 AM CDT 08/02/2017 5:40 AM CDT Narrative [facility] - 08/02/2017 5:52 AM CDT Remi Garza MD LAB BLOOD ORDERABLES F inal Result Performing Organization Address [facility] Co de Phone Number MARY JANE [address] [address] [place] [address] * (ABNORMAL) Magnesium (08/02/2017 5:31 AM CDT) Magnesium 1.7(L) 1.8 - 2.6 mg/dL [facility] Blood specimen (specimen) 08/02/2017 5:31 AM CDT 08/02/2017 5:40 AM CDT Narrative [facility] - 08/02/2017 5:59 AM CDT Remi Garza MD LAB BLOOD ORDERABLES F inal Result Performing Organization Address [facility]/ZIP Co de Phone Number [facility] [address] [address] Department FP Complete [place], [place] [id number] * Glucose POC (08/02/2017 3:19 AM CDT) Glucose, POC 149 70 - 199 mg/dL [facility] Blood specimen (specimen) 08/02/2017 3:19 AM CDT 08/02/2017 3:19 AM CDT Narrative [facility] - 08/02/2017 3:20 AM CDT us Radha Liriano MD POINT OF CARE TEST ORDERA BLES Final Result Performing Organization Address City/[facility]/ZIP Co de Phone Number MARY JANE ARNOLD [address] [address] [facility] [place] [address] * (ABNORMAL) Glucose POC (08/01/2017 9:21 PM CDT) Glucose, POC 211(H) 70 - 199 mg/dL [facility] Blood specimen (specimen) 08/01/2017 9:21 PM CDT 08/01/2017 9:21 PM CDT Narrative [facility] - 08/01/2017 9:22 PM CDT us Radha Liriano MD POINT OF CARE TEST ORDERA BLES Final Result Performing Organization Address [facility] Co de Phone Number BCPU[facility] ARNOLD [address] [address] [facility] [place] [address] * Glucose POC (08/01/2017 5:51 PM CDT) Glucose, POC 113 70 - 199 mg/dL [facility] Blood specimen (specimen) 08/01/2017 5:51 PM CDT 08/01/2017 5:51 PM CDT Narrative [facility] - 08/01/2017 5:58 PM CDT us Radha Liriano MD POINT OF CARE TEST ORDERA BLES Final Result Performing Organization Address City/[facility]/ZIP Co de Phone Number BCPU[facility] ARNOLD [address] [address] Department [facility] [place], [place] [id number] * Troponin I (08/01/2017 4:02 PM CDT) [facility] Troponin I <0.03 0.00 - 0.14 ng/mL [facility] Comment: Interpretive Data Normal: ? 0.00 - 0.14 ng/mL Indeterminate: ?0.15 - 0.50 ng/mL SD / Cardiac Muscle Damage: ? >0.50 ng/mL Current interpretive data was last reviewed 2015 Blood specimen (specimen) 08/01/2017 4:02 PM CDT 08/01/2017 4:13 PM CDT Narrative [facility] - 08/01/2017 4:53 PM CDT us Remi Garza MD LAB BLOOD ORDERABLES F inal Result Performing Organization Address City/[facility]/ZIP Co de Phone Number [facility] [address] [address] Department [place] [address] * Glucose POC (08/01/2017 12:44 PM CDT) [facility] Glucose, POC 155 70 - 199 mg/dL [facility] Blood specimen (specimen) 08/01/2017 12:44 PM CDT 08/01/2017 12:44 PM CDT Narrative [facility] - 08/01/2017 12:56 PM CDT us Radha Liriano MD POINT OF CARE TEST ORDERA BLES Final Result Performing Organization Address [facility] Co de Phone Number [facility] [address] [address] [facility] [place] [address] * ECG 12 lead (08/01/2017 12:34 PM CDT) [facility] Patient age [address] [facility] Interpretation Text SINUS RHYTHMNORMAL ECGPREVIOUS TRACIN08/01/2017 05.09No significant change compared to prior ECG [facility] Comment:Physician Interprete r Dr. Humberto Armas M.D. Ventricular Rate EKG/Min 77 /min [facility] P Wave Duration 106 ms [facility] QRS-Interval (MSEC) [address] [facility] MD-Interval (MSEC) [address] [facility] QT Interval 379 ms [facility] QTc 408 ms [facility] QTC Interval ms [facility] P Brewster 17 deg [facility] QRS Brew[place] 19 deg [facility] T [place] 56 deg [facility] 08/01/2017 12:3 4 PM CDT Enmanuel Dubon MD ECG ORDERABLES Final Resul t Performing Organization Address [facility] Co de Phone Number [facility] * (ABNORMAL) D-dimer, quantitative (08/01/2017 [...] ORDERABLES F inal Result Performing Organization Address City/[facility]/ZIP Co de Phone Number [facility] [address] [address] Department [place] [address] * Troponin I (08/01/2017 11:25 AM CDT) [...] ORDERABLES F inal Result Performing Organization Address [facility] de Phone Number [facility] [address] [address] [facility] [place] [address] * Glucose POC (08/01/2017 9:21 AM CDT) Glucose, POC 142 70 - 199 mg/dL [facility] Blood specimen (specimen) 08/01/2017 9:21 AM CDT 08/01/2017 9:21 AM CDT Narrative [facility] - 08/01/2017 9:28 AM CDT Radha Liriano MD POINT OF CARE TEST ORDERA BLES Final Result Performing Organization Address [facility] de Phone Number [facility] [address] [address] Department [place] [address] * Glucose POC (08/01/2017 8:05 AM CDT) Glucose, POC 136 70 - 199 mg/dL [facility] Blood specimen (specimen) 08/01/2017 8:05 AM CDT 08/01/2017 8:05 AM CDT Narrative [facility] - 08/01/2017 8:06 AM CDT Remi Garza MD POINT OF CARE TEST ORD ERABLES Final Result Performing Organization Address [facility] Co de Phone Number [facility] [address] [address] Department [place] [address] * ECG 12 lead (08/01/2017 5:09 AM CDT) Pathologist [facility] Patient age 62 years [facility] Interpretation Text SINUS RHYTHMNONSPECIFIC T-WAVE ABNORMALITYBORDERLINE ECGPREVIOUS TRACIN07/26/2017 19.12No significant changes noted [facility] Comment:Physician Interprete r Dr. Opal Koo M.D. Ventricular Rate EKG/Min 84 /min [facility] P Wave Duration 110 ms [facility] QRS-Interval (MSEC) 81 ms [facility] MD-Interval (MSEC) [address] [facility] QT Interval [address] [facility] QTc 415 ms [facility] QTC Interval ms [facility] P Brewster 7 deg [facility] QRS [place] 12 deg [facility] T Brewster 33 deg [facility] 08/01/2017 5:09 AM CDT us Enmanuel Dubon MD ECG ORDERABLES Final Resul t [facility] [place] * eGFR (08/01/2017 4:32 AM CDT) Pathologist [facility] eGFR 81 mL/min/1.7 3 m2 [facility] Comment: Interpretive Data Reference Interval Normal ?>/= 90 mL/min/1.73m2 Mildly decreased* ? 60 - 89 mL/min/1.73m2 Mildly to moderately decreased ?45 - 59 mL/min/1.73m2 Moderately to severely decreased ??30 - 44 mL/min/1.73m2 Severely decreased ?15 - 29 mL/min/1.73m2 Kidney Failure ?< 15 ??mL/min/1.73m2 *Relative to young adult level If -[place]os[place] multiply value by 1.16. Estimated glomerular filtration [...] BLOOD ORDERABLES Final Result MARY JANE ARNOLD [address] [address] Department [place] [address] * (ABNORMAL) Differential, auto (08/01/2017 4:32 AM [...] Final Result Performing Organization Address [facility]/ZIP Co de Phone Number MARY JANE ARNOLD [address] [address] Department [place] [address] * Troponin I (08/01/2017 4:32 AM CDT) Pathologist [facility] Troponin I 0.06 0.00 - 0.14 ng/mL [facility] Comment: Interpretive Data Normal: ? 0.00 - 0.14 ng/mL Indeterminate: ?0.15 - 0.50 ng/mL SD / Cardiac Muscle Damage: ? >0.50 ng/mL Current interpretive data was last reviewed 2015 Blood specimen (specimen) 08/01/2017 4:32 AM CDT 08/01/2017 4:35 AM CDT Narrative [facility] - 08/01/2017 5:05 AM CDT Enmanuel Dubon MD LAB BLOOD ORDERABLES Edited Result - Final Performing Organization Address [facility] Co de Phone Number MARY JANE ARNOLD [address] [address] Department [place] [address] * (ABNORMAL) Comprehensive metabolic panel (08/01/2017 4:32 AM CDT) Pathologist [facility] Sodium 130(L) 135 - 145 mmol/L [facility] Potassium, pl 3.9 3.5 - 5.1 mmol/L [facility] CO2 24 22 - 32 mmol/L [facility] BUN 16 8 - 24 mg/dL [facility] Glucose 180 70 - 199 mg/dL [facility] Comment: Interpretive Data Fasting glucose [...] AM CDT 08/01/2017 4:35 AM CDT Narrative [facility] - 08/01/2017 5:05 AM CDT us Enmanuel Dubon MD LAB BLOOD ORDERABLES Final Result [facility] [address] [address] Department [place] [address] * (ABNORMAL) CBC with auto [...] LAB BLOOD ORDERABLES Final Result MARY JANE [address] [address] Department of Laboratories [place] [id number] * Blood culture Blood (08/01/2017 4:30 AM CDT) Report Final Report: No growth MARY JANE Comment:Testing performed by : [facility] [facility], [address] [place]., [address] Blood specimen (specimen) 08/01/2017 4:30 AM CDT [...] organism identification may be performed using the [employer] Nanosphere Gram Positive Blood Culture Assay. ??The Nanosphere assay detects microbial DNA in positive blood culture broth via hybridization of target DNA to capture oligonucleotides on a microarray. ??This assay has been cleared by the [place] Food and Drug Administration and its performance characteristics have been verified by the [facility]. Current Interpretive Data was last revised on 2013. Enmanuel Dubon MD LAB MICROBIOLOGY - GENERAL ORDERABLES Final Result Performing Organization Address City/[facility] Co de Phone Number MARY JANE ARNOLD [address] Department [place] [address] * Blood culture Blood (08/01/2017 4:30 AM CDT) Report Final Report: No growth MARY JANE ARNOLD Comment:Testing performed by : [facility], [address] [facility] [place], [place]., [address] Blood specimen (specimen) 08/01/2017 4:30 AM CDT [...] organism identification may be performed using the [employer] Nanosphere Gram Positive Blood Culture Assay. ??The Nanosphere assay detects microbial DNA in positive blood culture broth via hybridization of target DNA to capture oligonucleotides on a microarray. ??This assay has been cleared by the [place] Food and Drug Administration and its performance characteristics have been verified by the [facility]. Current Interpretive Data was last revised on 2013. Enmanuel Dubon MD LAB MICROBIOLOGY - GENERAL ORDERABLES Final Result Performing Organization Address [facility] Co de Phone Number MARY JANE ARNOLD [address] Department [place] [address] * XR Chest 1 View (08/01/2017 3:58 [...] Hyponatremia Hyposmolality and/or hyponatremia Diet-controlled diabetes mellitus (CMS/[facility]) ([facility]) LUL (obstructive sleep apnea) Obstructive sleep apnea [...] Mckenzie Flower RN)2122 (Given - Provider: Velma Le RN) exemestane (AROMASIN) tablet 25 mg 25 [...] not met)0041 (Not Given - Provider: Jaky Lvoe RN - Reason: Order parameters not met)0607 [...] Mckenzie Flower RN)1917 (Not Given - Provider: Mckenzie Flower RN - Reason: Contraindicated)2123 (Rate/Dose Verify [...] Velma Le, RN) 0043 (Given - Provider: Vemla Le, RN) nitroglycerin (NITROSTAT) sublingual tablet 0.4 [...] Conroy, RN)2236 (Given - Provider: Jaky Love, NUIRS)2240 (Given - Provider: Jaky Love RN) 1420 [...] 08/01/2017 documented in this encounter Care Teams Financial Aid Manager Relationship Specialty Start Date End Date Lavonne Hathaway MD [facility] [place] [address] PCP - General 08/16/16 08/17/17 Liu Jerez MD [facility] [place] [address] Consulting Physician Gastroenterology 07/28/17 [place] [address] [facility] [address] [place] [address] Consulting Physician Pulmonary Disease 08/03/17 documented as of this encounter
--- OUTSIDE RECORDS SUMMARY | 2024-04-26 09:31 | XMS_ITS | Encounter Summary ---
Author Organization [facility] Healthcare Address [address] [place] [address] Care Team Providers Care Supervisor Car Installations Name Role Phone Lavonne Hathaway MD Primary Care Provider [phone]- [phone] Encounter Details Date Type Department Care Team (Latest Contact Info) Description 07/03/2017 1:09 PM CDT - 07/03/2017 5:20 PM CDT Hospital Encounter [facility] INTERIM [phone] Javy Diehl MD PhD [address] [facility] [address] [place], [place] [id number] Discharge Disposition: Discharge to home or self care Social History Tobacco Use Types Packs/Day Years Used Date Smoking Tobacco: Former Alcohol Use Standard Drinks/Week Comments No 0 (1 standard drink = 0.6 oz pur e alcohol) Comments Unknown Sex and Gender Information Value Date Recorded Sex Assigned at Not on file 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 Department [place] [address] * Glucose POC (07/03/2017 2:38 PM CDT) [...] ORDERA BLES Final Result MARY JANE [facility] [address] [facility]. [place] [address] * DISCHARGE LABORATORY CUMULATIVE REPORT (07/03/2017 12:00 AM CDT) Narrative 07/03/2017 12:00 AM CDT Ordered by an unspecified provider. Historical Provider LAB BLOOD ORDERABLES Deann l Result * COLONOSCOPY REPORT (07/03/2017) Anatomical Region Laterality Modality Other Provider Scanning GI PROCEDURE ORDERABLES Edited Result - Final documented in this encounter Visit Diagnoses Not on filedocumented in this encounter Care Teams Supervisor Car Installations Relationship Specialty Start Date End Date Lavonne Hathaway MD [address] [place] [address] [place] [address] PCP - General 08/16/16 08/17/17 documented as of this encounter
--- OUTSIDE RECORDS SUMMARY | 2024-04-26 09:31 | XMS_ITS | Encounter Summary ---
Author Organization [facility] Healthcare Address [address] [place] [address] Care Team Providers Care Hedge Fund Principal Name Role Phone Lavonne Hathaway MD Primary Care Provider [phone]- [phone] Encounter Details Date Type Department Care Team (Latest Contact Info) Description 07/26/2017 8:40 PM CDT - 07/26/2017 11:59 PM CDT Hospital Encounter [facility] [address] [place] [address] Gregoria Knowles MD [address] [place] [address] [id number] [place] [address] Discharge Disposition: Discharge to home or self care Social History Tobacco Use Types Packs/Day Years Used Date Smoking Tobacco: Former Smokeless Tobacco: Never Alcohol Use Standard Drinks/Week Comments No 0 (1 standard drink = 0.6 oz pur e alcohol) Comments Unknown Sex and Gender Information Value Date Recorded Sex Assigned at Not on file 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
--- OUTSIDE RECORDS SUMMARY | 2024-04-26 09:31 | XMS_ITS | Encounter Summary ---
Author Organization [facility] Medical Group Address [address] [address] Care Team Providers Care Build Manager Name Role Phone Lavonne Hathaway MD Primary Care Provider [phone]- [phone] Reason for Visit * Reason Comments New Patient Pain * Orthopedic (Routine) - Closed Specialty Diagnoses / Procedures Referred By Elyssa benavides Referred To Contact Orthopedic Surgery Diagnoses Lumbago back pain clindesk Pt aware she needs referral. She says she will fax it. left message to confirm appt Procedures [place] OFFICE OUTPATIENT NEW 10 MINUTES NEW PATIENT Lavonne Hathaway MD Phone: tel: fax: Ko Melendez [place] [id number] [place] [address] Phone: tel: fax: Referral ID Status Reason Start Date Expiration Date Visits Re quested Visits Authorized [id number] Closed 02/22/2017 08/23/2017 6 6 Encounter Details Date Type Department Care Team (Late st Contact Info) Description 02/24/2017 10:45 AM CDT Office Visit [facility] [address] [place] [address] [place] [address] [facility] [place] [address] Fusion of spine of lumbar [...] on file 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 but the results of this are not [...] accommodate a patient of her size at [facility] and she already is in the side 1 neck works I would suggest she get the MRI scan at [facility] and contact me for results. Arrangements to [...] relief. Plan As above Ko Melendez MD L BILLING ANALYST documented in this encounter Plan of [...] documented as of this encounter Care Teams Build Manager Relationship Specialty Start Date End Date Lavonne Hathaway MD [facility] [address] PCP - General 08/16/16 08/17/17 documented as of this encounter
--- OUTSIDE RECORDS SUMMARY | 2024-04-26 09:31 | XMS_ITS | Encounter Summary ---
Author Organization [facility] Address [address] [place] [address] Phone Care Team Providers Care Tube Test Technician Name Role Phone Lavonne Hathaway MD Primary Care Provider + [phone] Liu Jerez MD Unavailable [phone] Albert Corbin MD Unavailable [phone] Justen Gale MD Primary Care Provider + [phone] Lavonne Hathaway MD Primary Care Provider + [phone] Justen Gale MD Primary Care Provider [phone] Khris Arthur MD Unavailable + [phone] Ko Melendez MD Unavailable [phone] John Paul Moyer MD Unavailable Annel Rod MD Unavailable Anali MARSHALL MD, Carlos M. 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 Gender Identity Not on file Sexual Orientation [...] COVID: Recovered 02/10/2022 02/10/2022 06/10/2022 3:05 AM ELECTROMATIC TYPIST Exposure, COVID-19 Comment:Added automatically based on COVID19 lab answers indicating exposure risk 02/11/2022 02/11/2022 02/15/2022 9:06 AM C DT COVID: Suspected 05/14/2022 05/14/2022 05/14/2022 10:41 AM ELECTROMATIC TYPIST COVID: Suspected 06/07/2022 06/07/2022 06/07/2022 12:28 PM ELECTROMATIC TYPIST COVID: Suspected 06/21/2022 06/21/2022 06/21/2022 2:12 AM ELECTROMATIC TYPIST COVID: Suspected 10/05/2022 10/05/2022 10/05/2022 7:40 PM CDT COVID: Suspected 01/04/2024 01/04/2024 01/04/2024 10:30 PM CDT COVID: Suspected 02/14/2024 02/14/2024 02/15/2024 12:36 AM CDT documented as of this encounter Care Teams Tube Test Technician Relationship Specialty Start Date End Date Lavonne Hathaway MD [address] [place] [address] [place] [address] PCP - General 08/16/16 08/17/17 Justen Gale MD [address] [facility] [address] [address] PCP - General 08/18/17 08/22/17 Lavonne Hathaway MD [address] [place] [address] [place] [address] PCP - General Family Medicine 08/23/17 10/08/17 Justen Gale MD [address] [facility] [address] [address] PCP - General 10/09/17 Liu Jerez MD [address] [place] [address] [place] [address] Consulting Physician Gastroenterology 07/28/17 [place] [address] [facility] [address] [place] [address] Consulting Physician Pulmonary Disease 08/03/17 Khris Arthur MD [address] [facility] [address] [place] [address] Medical Oncologist/Chief Librarian Circulation Department Medical Oncology 10/23/17 [place] [address] [facility] [address] [place] [address] Surgeon Orthopedic Surgery 10/23/17 [place] [address] [address] Consulting Physician Pain Management 10/23/17 [place] [address] [facility] [address] [place] [address] Referring Physician General Surgery 01/26/18 [place] [address] [facility] [address] [place] [address] Consulting Physician Neurology 01/26/18 documented as of this encounter
--- OUTSIDE RECORDS SUMMARY | 2024-04-26 09:31 | XMS_ITS | Encounter Summary ---
Author Organization [facility] Healthcare Address [address] [place] [address] Care Team Providers Care Stone Dresser Name Role Phone Lavonne Hathaway MD Primary Care Provider [phone]- [phone] Encounter Details Date Type Department Care Team (Late st Contact Info) Description 01/13/2017 7:01 PM CDT - 01/14/2017 4:18 AM CDT Emergency 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 [...] ??Cholecystectomy. A stat report was issued by [facility] on 01/14/2017 at 0022. Electronically signed by: Raquel Burk M.D. ? DIRECTOR OF PATIENT CARE: ??PSC TRANSCRIBE DATE/TIME: ??Jan 14 2017 ??9:28A RADIOLOGIST: ??RAQUEL BURK M.D. ??READ ON: ??Jan 14 2017 ??9:30A ORDERING DR: VINCENT GOEL M.D. THIS DOCUMENT HAS BEEN ELECTRONICALLY SIGNED BY: ??SERJIO Varela, RAQUEL ??ON: ??Jan 14 2017 ??9:28A Attending: ??JANNET, ??VICNENT Requesting: ??JANNET, ??VINCENT Requesting Fax: ??[phone] Attending Fax: ??[phone] Attending ID: ??[id number] Requesting ID: ??[id number] Report To 1 ID: ?? Report To 1 Name: ??, ?? Report To 1 FAX: ??-- Report To 2 ID: ?? Report To 2 Name: ??, ?? Report To 2 FAX: ??-- NextGen Order #: ?? Procedure Note Miscellaneous, Not In File / Provider, MD Tyler - 01/14/2017 DATE OF EXAM: Jan 14 2017 12:01AM Acc#: [id number] ECT 0073 - CT Abd/Pel WO DIAGNOSIS: [...] Cholecystectomy. A stat report was issued by [facility] on 01/14/2017 at 0022. Electronically signed by: Raquel Burk M.D. DIRECTOR OF PATIENT CARE: [facility] TRANSCRIBE DATE/TIME: Jan 14 2017 9:28A RADIOLOGIST: RAQUEL BURK M.D. READ ON: Jan 14 2017 9:30A ORDERING DR: VINCENT GOEL M.D. THIS DOCUMENT HAS BEEN ELECTRONICALLY SIGNED BY: RAQUEL BURK M.D. ON: Jan 14 2017 9:28A Attending: VINCENT GOEL Requesting: VINCENT GOEL Requesting Attending Attending ID: [id number] Requesting ID: [id number] Report To 1 ID: Report To 1 [...] standards. MARY JANE Comment:Testing performed by : [facility], [address] [place] [address] Urine 01/13/2017 11:1 5 PM CDT 01/14/2017 3:13 AM CDT Narrative MARY JANE - 01/15/2017 7:43 AM CDT Vincent Goel MD LAB MICROBIOLOGY - GENER AL ORDERABLES Final Result [facility] [address] Department [place] [address] * (ABNORMAL) Urinalysis, microscopic only (01/13/2017 11:15 PM CDT) RBC, ur 2 0 - 3 /HPF [facility] WBC, ur 50(H) 0 - 5 /HPF [facility] Bacteria, ur 0 CERNER Epithelial cells, renal, [...] ORDERABLES Fin al Result Performing Organization Address City/[facility] [place] [address] [address] Department [place] [address] * (ABNORMAL) Urinalysis reflex to microscopic and [...] AL ORDERABLES Final Result Performing Organization Address [facility] de Phone Number MARY JANE ARNOLD [address] [address] Department [place] [address] * eGFR (01/13/2017 9:30 PM CDT) eGFR 84 mL/min/1.7 3 m2 C[facility]ER [facility] Comment: Interpretive Data Reference Interval Normal ?>/= 90 mL/min/1.73m2 Mildly decreased* ? 60 - 89 mL/min/1.73m2 Mildly to moderately decreased ?45 - 59 mL/min/1.73m2 Moderately to severely decreased ??30 - 44 mL/min/1.73m2 Severely decreased ?15 - 29 mL/min/1.73m2 Kidney Failure ?< 15 ??mL/min/1.73m2 *Relative to young adult level If -[place]guill[place] multiply value by 1.16. Estimated glomerular filtration [...] Dubon MD LAB BLOOD ORDERABLES Final Result [facility] [address] [address] Department [place] [address] * Comprehensive metabolic panel (01/13/2017 9:30 PM [...] BLOOD ORDERABLES Final Result Performing Organization Address City/[facility]/ZIP Co de Phone Number BCPUJA [address] [facility] [place] [address] * Lipase (01/13/2017 9:30 PM CDT) Lipase 33 20 - 50 Units/L [facility] Blood specimen (specimen) 01/13/2017 9:30 PM CDT 01/13/2017 9:41 PM CDT Enmanuel Dubon MD LAB BLOOD ORDERABLES Final Result Performing Organization Address [facility] Co de Phone Number BCPUJA [address] [facility] [place] [address] * Amylase (01/13/2017 9:30 PM CDT) Amylase 57 35 - 100 Units/L [facility] Blood specimen (specimen) 01/13/2017 9:30 PM CDT 01/13/2017 9:41 PM CDT Enmanuel Dubon MD LAB BLOOD ORDERABLES Final Result Performing Organization Address City/[facility] Co de Phone Number MARY JANE ARNOLD [address] [address] [facility] [place] [address] * (ABNORMAL) CBC with auto differential (01/13/2017 [...] LAB BLOOD ORDERABLES Final Result MARY JANE [address] [address] Department [place] [address] * (ABNORMAL) Differential, auto (01/13/2017 [...] BLOOD ORDERABLES Final Result MARY JANE ARNOLD [address] [address] Department [place] [address] documented in this encounter Visit Diagnoses Not on filedocumented in this encounter Care Teams Stone Dresser Relationship Specialty Start Date End Date Lavonne Hathaway MD [address] [place] [address] [place] [address] PCP - General 08/16/16 08/17/17 documented as of this encounter
--- OUTSIDE RECORDS SUMMARY | 2024-04-26 09:31 | XMS_ITS | Encounter Summary ---
Author Organization [facility] Healthcare Address [address] [place] [address] Care Team Providers Care Regrinder Name Role Phone Lavonne Hathaway MD Primary Care Provider [phone]- [phone] Encounter Details Date Type Department Care Team (Late st Contact Info) Description 01/12/2017 12:58 PM CDT - 01/12/2017 8:37 PM CDT Emergency [facility] Emergency Department [address] [place] [address] Albert [place], [address] [place] [place] [address] Discharge Disposition: Discharge to home or self care Social History Tobacco Use Types Packs/Day Years Used Date Smoking Tobacco: Former Alcohol Use Standard Drinks/Week Comments No 0 (1 standard drink = 0.6 oz pur e alcohol) Comments Unknown Sex and Gender Information Value Date Recorded Sex Assigned at Not on file 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 [...] Electronically signed by: Raquel Burk M.D. ? NAILER OPERATOR: ??PSC TRANSCRIBE DATE/TIME: ??Jan 12 2017 ??4:06P RADIOLOGIST: ??RAQUEL BURK M.D. ??READ ON: ??Jan 12 2017 ??4:08P ORDERING DR: ERICK DAVIS M.D. THIS DOCUMENT HAS BEEN ELECTRONICALLY SIGNED BY: ??SERJIO Varela, RAQUEL ??ON: ??Jan 12 2017 ??4:06P Attending: ??GERDA, ??ERICK Requesting: ??GERDA, ??ERICK Requesting Fax: ??[phone] Attending Fax: ??[phone] Attending ID: ??[id number] Requesting ID: ??[id number] Report To 1 ID: ?? Report To 1 Name: ??, ?? Report To 1 FAX: ??-- Report To 2 ID: ?? Report To 2 Name: ??, ?? Report To 2 FAX: ??-- NextGen Order #: ?? Procedure Note Miscellaneous, Not In File / Provider, MD Tyler - 01/12/2017 DATE OF EXAM: Jan 12 2017 3:44PM Acc#: [id number] ECT 0074 - CT Abd/Pel W DIAGNOSIS: [...] cyst. Electronically signed by: Raquel Burk M.D. NAILER OPERATOR: PSC TRANSCRIBE DATE/TIME: Jan 12 2017 4:06P RADIOLOGIST: RAQUEL BURK M.D. READ ON: Jan 12 2017 4:08P ORDERING DR: ERICK DAVIS M.D. THIS DOCUMENT HAS BEEN ELECTRONICALLY SIGNED BY: RAQUEL BURK M.D. ON: Jan 12 2017 4:06P Attending: ERICK DAVIS Requesting: ERICK DAVIS Requesting Attending Attending ID: [id number] Requesting ID: [id number] Report To 1 ID: Report To 1 [...] CARE TEST ORDERABLES Final Result MARY JANE [address] [address] Department [place] [address] * eGFR (01/12/2017 1:35 PM CDT) eGFR 81 mL/min/1.7 3 m2 MARY JANE Comment: Interpretive Data Reference Interval Normal ?>/= 90 mL/min/1.73m2 Mildly decreased* ? 60 - 89 mL/min/1.73m2 Mildly to moderately decreased ?45 - 59 mL/min/1.73m2 Moderately to severely decreased ??30 - 44 mL/min/1.73m2 Severely decreased ?15 - 29 mL/min/1.73m2 Kidney Failure ?< 15 ??mL/min/1.73m2 *Relative to young adult level If -[place]amo[place] multiply value by 1.16. Estimated glomerular filtration [...] Co de Phone Number MARY JANE ARNOLD [address] [place] [address] * Comprehensive metabolic panel (01/12/2017 [...] ORDERABLES Final Result Performing Organization Address [facility]/ZIP Co de Phone Number MARY JANE ARNOLD [address] [place] [address] * Lipase (01/12/2017 1:35 PM CDT) Lipase 27 20 - 50 Units/L [facility] Blood specimen (specimen) 01/12/2017 1:35 PM CDT 01/12/2017 1:43 PM CDT Erick Davis MD LAB BLOOD ORDERABLES Final Result Performing Organization Address City/[facility]/ZIP Co de Phone Number MARY JANE ARNOLD [address] [place] [address] * (ABNORMAL) CBC with auto [...] Co de Phone Number MARY JANE ARNOLD [address] [place] [address] * Differential, auto (01/12/2017 1:35 [...] LAB BLOOD ORDERABLES Final Result MARY JANE [address] [place] [address] * DISCHARGE LABORATORY CUMULATIVE REPORT (01/12/2017 12:00 AM CDT) Narrative 01/12/2017 12:00 AM CDT Ordered by an unspecified provider. Historical Provider LAB BLOOD ORDERABLES Deann l Result documented in this encounter Visit Diagnoses Not on filedocumented in this encounter Care Teams Regrinder Relationship Specialty Start Date End Date Lavonne Hathaway MD [address] [place] [address] [place] [address] PCP - General 08/16/16 08/17/17 documented as of this encounter
--- OUTSIDE RECORDS SUMMARY | 2024-04-26 09:31 | XMS_ITS | Encounter Summary ---
Author Organization [facility] Healthcare Address [address] [place] [address] Care Team Providers Care Spray I Painter Name Role Phone Lavonne Hathaway MD Primary Care Provider [phone] Liu Jerez MD Unavailable [phone] Reason for Visit * Reason Comments Shortness of Breath worsens with exertio n, also fatigue Encounter Details Date Type Department Care Team (Latest Contact Info) Description 07/28/2017 12:00 PM CDT - 07/28/2017 12:30 PM CDT Surgery [facility] GI Lab [address] [place] [address] [place] [id number] [place] [address] ESOPHAGOGASTRODUODENOSCOPY BIOPSY Surgery Details Date/Time Status Location OR Service Patient Class Case Class Case Type Trauma Case? 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 A preliminary report was submitted by [facility] on 07/27/2017 at 2:09 AM. Electronically [...] Follow-Up: [place] [address] [facility] [address] patietn may benefit from gastric emptying study. [...] Type of Weight Used forEstimated Protein : [place]. ?? Total Fluid Estimated Needs: 1869 Fluid [...] (CMS/HCC) breast ??? CHF (congestive heart failure) ([facility]/HCC) ??? Depression Depression ??? Diabetes (CMS/HCC) ??? Disorder of thyroid Thyroid disease ??? DVT (deep venous thrombosis) ([facility]) ??? HX OTHER MEDICAL restless leg syndrome ??? HX OTHER MEDICAL RLS ??? Hypertension Hypertension ??? Osteoarthritis osteoarthritis ??? PE (pulmonary thromboembolism) ([facility]) Medications and Lab Review: Scheduled Meds: aspirin [...] 07/27/2017 PRIMARY CARE PHYSICIAN: Lavonne Hathaway MD [phone] Subjective Patient is a 62 y.o. female [...] Duration 112 ms QRS-Interval (MSEC) 84 ms PA-Interval (MSEC) 131 ms QT Interval 337 ms QTc 394 ms QTC Interval ms P Avinger 47 deg QRS Avinger 23 deg T Avinger 61 deg B-type natriuretic peptide Collection Time: [...] nephrolithiasis. A preliminary report was submitted by [facility] on 07/27/2017 at 2:09 AM. Electronically [...] - 07/28/2017 12:07 PM CDTAssociated Order(s): EGD [facility] Endoscopy Lab Patient Name: Mohsen Marques Procedure [...] passed under direct vision. The Endoscope GIF-Q180 [id number] was introduced through the mouth, and advanced [...] antireflux regimen. Procedure Code(s): --- Professional --- 27519, Esophagogastroduodenoscopy, flexible, transoral; with biopsy, single or multiple Diagnosis Code(s): --- Professional --- K31.9, Disease of stomach and duodenum, unspecified R10.13, Epigastric pain CPT copyright 2014 [employer]. All rights reserved. The codes documented in this report are preliminary and upon bus steward review may be revised to meet current [...] July 03, 2017 that was performed at [facility] was reviewedand showed normal terminal ileum [...] nephrolithiasis. A preliminary report was submitted by [facility] on 07/27/2017 at 2:09 AM. Electronically [...] Foreign Body, COPD Exacerbation, Pulmonary Embolism, Asthma, [place] / Unstable Angina, SARS, Other: CHF / [...] Duration 112 ms QRS-Interval (MSEC) 84 ms PA-Interval (MSEC) 131 ms QT Interval 337 ms QTc 394 ms QTC Interval ms P Avinger 47 deg QRS Avinger 23 deg T Avinger 61 deg B-type natriuretic peptide Collection Time: [...] CH - 07/29/2017 11:56 AM CDT [facility] Department of Pathology [address] [place] [address] Final Report ?Patient Name: MOHSEN MARQUES Address: [address] [place] [address] Service: Medical ??[place], [place] ??[facility] Location: [facility] E Taken: 07/28/2017 Gender: F Received 07/28/2017 : 1955 (Age: 62) Hospital #: [id number] Accessioned: 07/28/2017 ?? Patient Type: OBS Reported [...] by the Surgical Pathology Department at [facility] as part of an ongoing quality control representative program and in compliance with federally mandated [...] characteristics determined by the Surgical Pathology Department [facility]. ??It has not been cleared or approved by the U. S. Food and Drug Administration. Liu Jerez MD LAB PATHOLOGY ORDERABLE S Final Result PATHOLOGY [facility] [place] [address] * EGD (07/28/2017 12:07 PM CDT) Anatomical Region Laterality Modality Other Narrative Procedure Note Liu Jerez MD - 07/28/2017 12:07 PM CDT [facility] Endoscopy Lab Patient Name: Mohsen Marques Procedure [...] passed under direct vision. The Endoscope GIF-[id number] was introduced through the mouth, andadvanced to [...] antireflux regimen. Procedure Code(s): --- Professional --- 08590, Esophagogastroduodenoscopy, flexible,transoral; with biopsy, single or multiple Diagnosis Code(s): --- Professional --- K31.9, Disease of stomach and duodenum,unspecified R10.13, Epigastric pain CPT copyright 2014 [employer]. All rights reserved. The codes documented in this report are preliminary and upon bus steward reviewmay be revised to meet current compliance [...] AM CDT Ordered by an unspecified provider. [facility] Provider LAB BLOOD ORDERABLES Deann l [...] ORDERABLES Final Resu lt Performing Organization Address [facility] de Phone Number MARY JANE ARNOLD [address] Department of [employer] [place], [place] [id number] * (ABNORMAL) Urinalysis reflex to microscopic (07/27/2017 [...] ORDERABLES Final Resu lt Performing Organization Address [facility] de Phone Number MARY JANE ARNOLD [address] Department of [employer] [place], [place] [id number] * (ABNORMAL) Blood culture Blood (07/27/2017 2:58 AM CDT) Direct Specimen Exam Rapid Molecular Analysis: Coagulase negative Staphylococcus species detected by the Verigene Blood Culture Nucleic Acid Test. ??This test does not exclude the possibility of a mixed bacterial infection. Notification of: Coagulase negative Staphylococcus species called to and read back by: Lesia Sanzarnold LAWLER [phone] on 07/31/2017 06:12:00 by: Jesús HINTON Comment:Testing performed by : [facility], [address] [place] [address]., [id number] Direct Specimen Exam Stain: Gram Positive Cocci in clusters * ??* ??* ??* ??* ??* ??* ??* ??* ??* ??* ??* ??* ??* ??* ??* ??* ??* ??* ??* Notification of: Gram Positive Cocci in clusters called to and read back by: Lesia WatsonNURIS, on 07/30/2017 19:51:48 by: Noe HINTON Comment:Testing performed by : [facility], [address] [place] [address]., [id number] Report Final Report: Coagulase negative Staphylococcus species Isolate of questionable significance. ??If a similar isolate is recovered from a second blood culture collected within 3 days of this culture, both will be evaluated and, if determined to be related, antimicrobial susceptibility testing will be performed. (.) MARY JANE Comment:Testing performed by : [facility], [address] [place] [address]., [address] Organism COAGULASE NEGATIVE STAPHYLOCOCCUS SPECIES MARY JANE Blood specimen (specimen) (Antecubital, right) 07/27/2017 2:58 AM CDT 07/27/2017 7:53 AM CDT [facility] MARY JANE - 08/02/2017 4:31 PM CDT [...] organism identification may be performed using the [employer] Nanosphere Gram Positive Blood Culture Assay. ??The Nanosphere assay detects microbial DNA in positive blood culture broth via hybridization of target DNA to capture oligonucleotides on a microarray. ??This assay has been cleared by the [place] Food and Drug Administration and its performance characteristics have been verified by the [facility] Microbiology Laboratory. Current Interpretive Data was last revised on 2013. Sandeep Marie MD LAB MICROBIOLOGY - GENE RAL ORDERABLES Final Result MARY JANE ARNOLD [address] [place] [address] * CT Chest PE W Contrast (07/27/2017 1:07 AM CDT) Anatomical Region Laterality Modality Body N/A Computed Tomogra phy Impressions 07/27/2017 8:23 AM CDT No evidence of acute pulmonary emboli. Heterogeneous thyroid. ??Recommend dedicated thyroid ultrasound. Right nephrolithiasis. A preliminary report was submitted by [facility] on 07/27/2017 at 2:09 AM. Electronically [...] nephrolithiasis. A preliminary report was submitted by [facility] on 07/27/2017 at 2:09 AM. Electronically signed by: Prince House M.D. Sandeep Marie MD IM CT PROCEDURES Final Result * eGFR (07/26/2017 11:53 PM CDT) eGFR 80 mL/min/1.7 3 m2 [facility] Comment: Interpretive Data Reference Interval Normal ?>/= [...] PM CDT 07/27/2017 12:01 AM CDT Narrative [facility] - 07/27/2017 12:24 AM CDT us Sandeep Marie MD LAB BLOOD ORDERABLES Fi nal Result [facility] [address] [place] [address] * (ABNORMAL) Comprehensive metabolic panel (07/26/2017 11:53 PM CDT) [facility] Sodium 132(L) 135 - 145 mmol/L [facility] Potassium, pl 3.9 3.5 - 5.1 mmol/L [facility] CO2 25 22 - 32 mmol/L [facility] BUN 20 8 - 24 mg/dL [facility] Glucose 191 70 - 199 mg/dL [facility] [...] 2017. Creatinine 0.80 0.60 - 1.30 mg/dL [facility] Calcium 9.3 8.4 - 10.5 mg/dL [facility] Chloride 101 100 - 114 mmol/L [facility] Albumin 3.3 3.2 - 4.8 g/dL [facility] AST 19 7 - 40 Units/L [facility] ALT 17 1 - 45 Units/L [facility] Alk phos 68 30 - 110 Units/L [facility] Bilirubin, total 0.50 0.10 - 1.30 mg/dL [facility] Protein, pl 7.9 6.0 - 8.3 g/dL [facility] Anion gap 10 8 - 16 mmol/L [facility] Blood specimen (specimen) 07/26/2017 11:53 PM CDT 07/26/2017 11:59 PM CDT Narrative [facility] - 07/27/2017 12:24 AM CDT us Sandeep Marie MD LAB BLOOD ORDERABLES Fi nal Result [facility] [address] Department [place] [address] * Troponin I (07/26/2017 11:53 PM CDT) Troponin I 0.03 0.00 - 0.14 ng/mL [facility] Comment: Interpretive Data Normal: ? 0.00 - 0.14 ng/mL Indeterminate: ?0.15 - 0.50 ng/mL [place] / Cardiac Muscle Damage: ? >0.50 ng/mL Current interpretive data was last reviewed 2015 Blood specimen (specimen) 07/26/2017 11:53 PM CDT 07/27/2017 Narrative MARY JANE ARNOLD - 07/27/2017 12:24 AM CDT Loren Bonner MD LAB BLOOD ORDERABLES Final Resu lt MARY JANE [address] [place] [address] * XR Chest 1 View (07/26/2017 9:05 [...] ORDERABLES Final Resu lt Performing Organization Address City/[facility] Co de Phone Number MARY JNAE ARNOLD [address] [facility] [place] [address] * (ABNORMAL) Protime-INR (07/26/2017 9:00 PM CDT) PT 14.4(H) 9.5 - 13.0 sec [facility] INR 1.27(H) 0.90 - 1.20 [facility] Blood specimen (specimen) 07/26/2017 9:00 PM CDT 07/26/2017 9:01 PM CDT Narrative MARY JANE ARNOLD - 07/26/2017 9:19 PM CDT Loren Bonner MD LAB BLOOD ORDERABLES Final Resu lt Performing Organization Address City/State/[facility] Co de Phone Number MARY JANE ARNOLD [address] [place] [address] * Troponin I (07/26/2017 9:00 PM CDT) [facility] Troponin I <0.03 0.00 - 0.14 ng/mL [...] ORDERABLES Final Resu lt Performing Organization Address [facility] de Phone Number MARY JANE [address] [facility] [place] [address] * D-dimer, quantitative (07/26/2017 9:00 PM CDT) [facility] D-dimer <150 150 - 230 ng/mL D-DU [...] ORDERABLES Final Resu lt Performing Organization Address [facility] Co de Phone Number MARY JANE [address] [place] [address] * (ABNORMAL) CBC with auto differential (07/26/2017 9:00 PM CDT) Pathologist [facility] WBC 16.51(H) 3.80 - 9.90 K/cumm [facility] RBC 4.59 3.90 - 5.20 M/cumm [facility] Hgb 12.4 11.9 - 15.5 g/dL [facility] Hct 40.2 35.6 - 45.5 % [facility] MCV 87.6 81.3 - 96.4 fL [facility] CH MCH 27.0(L) 27.1 - 33.3 pg [facility] MCHC 30.8(L) 32.3 - 35.7 g/dL [facility] RDW CV 15.0(H) 11.1 - 14.9 % [facility] CH RDW SD 48.1 35.7 - 48.1 fL [facility] CH Plt 372 150 - 400 K/cumm [facility] MPV 9.6 9.1 - 12.3 fL [facility] NRBC abs 0.00 0.00 - 0.01 K/cumm [facility] Blood specimen (specimen) 07/26/2017 9:00 PM CDT 07/26/2017 9:01 PM CDT Narrative MARY JANE - 07/26/2017 9:11 PM CDT Loren Bonner MD LAB BLOOD ORDERABLES Final Resu lt [facility] [address] [place] [address] * B-type natriuretic peptide (07/26/2017 9:00 PM CDT) Pathologist [facility] B-Type Natriuretic Peptide (BNP) 27 0 - 100 pg/mL [facility] Blood specimen (specimen) 07/26/2017 9:00 PM CDT 07/26/2017 9:01 PM CDT Narrative MARY JANE - 07/26/2017 9:26 PM CDT Loren Bonner MD LAB BLOOD ORDERABLES Final Resu lt Performing Organization Address City/[facility]/ZIP Co de Phone Number MARY JANE ARNOLD [address] [place] [address] * ECG 12 lead (07/26/2017 7:12 PM CDT) Patient age 62 years [facility] Interpretation Text SINUS RHYTHMNORMAL ECGPREVIOUS TRACIN01/30/2017 10.25No significant change compared to prior ECG [facility] Comment:Physician Interprete r Dr. Humberto Armas M.D. Ventricular Rate EKG/Min 93 /min [facility] P Wave Duration 112 ms [facility] QRS-Interval (MSEC) 84 ms [facility] PA-Interval (MSEC) 131 ms [facility] QT Interval 337 ms [facility] QTc 394 ms [facility] QTC Interval ms [facility] P Avinger 47 deg [facility] QRS Avinger 23 deg [facility] T Avinger 61 deg [facility] 07/26/2017 7:12 PM CDT Loren Bonner MD ECG ORDERABLES Final Result Performing Organization Address [facility] de Phone Number [facility] documented in this encounter Visit Diagnoses Diagnosis [...] 3 mL, nebulization, Every 4 hours PRN (registered respiratory therapist), wheezing, shortness of breath, Starting on Mon07/27/17 [...] 0824 (Given - Provider: Lila Arita RN)1114 ([facility] Hold - Provider: Automatic Transfer Provider - Reason: Patient not available)1401 ([facility] Unhold - Provider: Automatic Transfer [...] Transfer Provider - Reason: Patient not available)1401 ([facility] Unhold - Provider: Automatic Transfer Provider)1600 (Due - Provider: Automatic Transfer Provider) ipratropium-albuterol (DUO-NEB) 0.5-2.5 mg/3 mL nebulizer solution 3 mL (COMPLETED) 3 mL, nebulization, Once (registered respiratory therapist), On Mon07/26/17 at 2100, For 1 dose, Indications: Chronic Obstructive Pulmonary Disease with Bronchospasms 2053 (Given - Provider: Shanthi Ac, SCRIBING MACHINE OPERATOR) levoFLOXacin (LEVAQUIN) 750 mg/150 mL premix IVPB [...] 0822 (Given - Provider: Lila Arita, NURIS)1114 ([facility] Hold - Provider: Automatic Transfer Provider - Reason: Patient not available)1401 ([facility] Unhold - Provider: Automatic Transfer [...] Other - Comment: Per Dr Jerez's order)1114 ([facility] Hold - Provider: Automatic Transfer Provider - Reason: Patient not available)1401 ([facility] Unhold - Provider: Automatic Transfer Provider) rOPINIRole (REQUIP) tablet 5 mg (CANCELED) 5 mg, oral, Nightly, First dose on Mon07/26/17 at 2300 0002 (Given - Provider: Margaret Barcenas RN) rOPINIRole (REQUIP) tablet 5 mg 5 mg, oral, Nightly, First dose on Mon07/27/17 at 2100, Pt home med 2021 (Given - Provider: Mary De RN) 1114 ([facility] Hold - Provider: Automatic Transfer Provider - Reason: Patient not available)1401 ([facility] Unhold - Provider: Automatic Transfer [...] 3 mL, nebulization, Every 4 hours PRN (registered respiratory therapist), wheezing, shortness of breath, Starting on Valeri 07/27/17 at 1357, Indications: Chronic Obstructive Pulmonary Disease with Bronchospasms 1114 (JUN Hold - Provider: Automatic Transfer Provider - Reason: Patient not available)1401 ([facility] Unhold - Provider: Automatic Transfer [...] Starting on Valeri 07/27/17 at 0509 1114 ([facility] Hold - Provider: Automatic Transfer Provider - Reason: Patient not available)1401 ([facility] Unhold - Provider: Automatic Transfer [...] 07/27/2017 documented in this encounter Care Teams Spray I Painter Relationship Specialty Start Date End Date Lavonne Hathaway MD [facility] [place] [address] PCP - General 08/16/16 08/17/17 Liu Jerez MD [address] [place] [address] [place] [address] Consulting Physician Gastroenterology 07/28/17 documented as of this encounter
--- OUTSIDE RECORDS SUMMARY | 2024-04-26 09:32 | XMS_ITS | Encounter Summary ---
Author Organization [facility] Healthcare Address [address] [place] [address] Care Team Providers Care Motor Vehicle Dispatcher Name Role Phone Lavonne Hathaway MD Primary Care Provider +1- [phone] Encounter Details Date Type Department Care Team (Latest Contact Info) Description 09/10/2016 8:49 PM CDT - 09/13/2016 6:20 PM CDT Hospital Encounter [facility] [id number] [place] [address] [place] [address] [address] Discharge Disposition: Discharge to home or self care Social History Tobacco Use Types Packs/Day Years Used Date Smoking Tobacco: Former Alcohol Use Standard Drinks/Week Comments No 0 (1 standard drink = 0.6 oz pur e alcohol) Comments Unknown Sex and Gender Information Value Date Recorded Sex Assigned at Not on file 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 Admit Date: 09/10/2016 [...] Requip 5 mg daily at bedtime. 7. [place] 5/325 mg three times daily on as [...] HISTORY AND PHYSICAL Patient: MOHSEN MARQUES Account: [id number] Room No: 822-02 : 1955 Patient Type: [facility] Attend.: Leoncio Hawkins M.D. Admit Date: 09/10/2016 Dict.: Carmella Mancilla Disch. Date: 09/13/2016 CHIEF COMPLAINT Shortness of breath. HPI This is a 61-year-old female with a past medical history of stage II ER positive ID positive HER-2 breast cancer status post bilateral [...] Carmella Mancilla/katelyn TD: 09/11/2016 12:50 CC: Lavonne Hathaawy M.D. documented in this encounter Plan of [...] OF EXAM: ??Sep 12 2016 11:00AM Acc#: ??[id number] ??CHV 0013 - VL/US Venous Low Ext [...] Electronically signed by: Shira Gaspar M.D. ? HYBRID TECHNOLOGIST: ??PSC TRANSCRIBE DATE/TIME: ??Sep 12 2016 11:26A RADIOLOGIST: ??SHIRA GASPAR M.D. ??READ ON: ??Sep 12 2016 11:31A ORDERING DR: DOMINIQUE Kenny THIS DOCUMENT HAS BEEN ELECTRONICALLY SIGNED BY: ??JAVY Varela, SHIRA ??ON: ??Sep 12 2016 11:26A Attending: ??DARLENE, ??LEONCIO Requesting: ??ANDREAS, ??DOMINIQUE Requesting Fax: ??-- Attending Fax: ??[phone] Attending ID: ??[id number] Requesting ID: ??[id number] Report To 1 ID: ?? Report To 1 Name: ??, ?? Report To 1 FAX: ??-- Report To 2 ID: ?? Report To 2 Name: ??, ?? Report To 2 FAX: ??-- NextGen Order #: ?? Procedure Note Miscellaneous, Not In File / Provider, MD Tyler - 09/18/2016 DATE OF EXAM: Sep 12 2016 11:00AM Acc#: [id number] [facility] 0013 - / Venous Low Ext [...] extremity. Electronically signed by: Shira Gaspar M.D. HYBRID TECHNOLOGIST: Echobit TRANSCRIBE DATE/TIME: Sep 12 2016 11:26A RADIOLOGIST: SHIRA GASPAR M.D. READ ON: Sep 12 2016 11:31A ORDERING DR: DOMINIQUE Kenny THIS DOCUMENT HAS BEEN ELECTRONICALLY SIGNED BY: SHIRA GASPAR M.D. ON: Sep 12 2016 11:26A Attending: LEONCIO HAWKINS Requesting: DOMINIQUE JOHNS Requesting Fax: -- Attending Attending ID: [id number] Requesting ID: [id number] Report To 1 ID: Report To 1 [...] OF EXAM: ??Sep 11 2016 12:33PM Acc#: ??[id number] ??ECT 0123 - CT Chest PE W [...] Electronically signed by: Shira Gaspar M.D. ? HYBRID TECHNOLOGIST: ??PSC TRANSCRIBE DATE/TIME: ??Sep 11 2016 12:40P RADIOLOGIST: ??SHIRA GASPAR M.D. ??READ ON: ??Sep 11 2016 12:44P ORDERING DR: DOMINIQUE Kenny THIS DOCUMENT HAS BEEN ELECTRONICALLY SIGNED BY: ??SHIRA GASPAR M.D. ??ON: ??Sep 11 2016 12:40P Attending: ??ONAGHISE, ??LEONCIO Requesting: ??ANDREAS, ??DOMINIQUE Requesting Fax: ??-- Attending Fax: ??[phone] Attending ID: ??[id number] Requesting ID: ??[id number] Report To 1 ID: ?? Report To 1 Name: ??, ?? Report To 1 FAX: ??-- Report To 2 ID: ?? Report To 2 Name: ??, ?? Report To 2 FAX: ??-- NextGen Order #: ?? Procedure Note Miscellaneous, Not In File / Provider, MD Tyler - 09/18/2016 DATE OF EXAM: Sep 11 2016 12:33PM Acc#: [id number] ECT 0123 - CT Chest PE W [...] PM Electronically signed by: Shira Gaspar M.D. HYBRID TECHNOLOGIST: Echobit TRANSCRIBE DATE/TIME: Sep 11 2016 12:40P RADIOLOGIST: SHIRA GASPAR M.D. READ ON: Sep 11 2016 12:44P ORDERING DR: DOMINIQUE Kenny THIS DOCUMENT HAS BEEN ELECTRONICALLY SIGNED BY: SHIRA GASPAR M.D. ON: Sep 11 2016 12:40P Attending: LEONCIO HAWKINS Requesting: DOMINIQUE JOHNS Requesting Fax: -- Attending Attending ID: [id number] Requesting ID: [id number] Report To 1 ID: Report To 1 [...] MOHSEN ??SHELLI IP STAT IMAGING PRELIMINARY RESULT [facility] PATIENT: ?? MOHSEN ??SHELLI MR#: ?? [id number] : 1955 AGE / SEX: ?? 61Y / F Procedure: ECT 0123 - CT Chest PE W Exam Date: ?? Sep 11 2016 12:33PM ?Loc: [id number] Acc#: ?? [id number] Pt_Class at Time of Procedure: I Current Pt Class and Location: ?? I ?ERD ? [id number] [facility] Priority: ??STAT Phone: [phone] ??Fax: [phone] Reason: ?? shortness of breath shortness of [...] MOHSEN MARQUES IP STAT IMAGING PRELIMINARY RESULT [facility] PATIENT: MOHSEN MARQUES MR#: [id number] : 1955 AGE / SEX: 61Y / F Procedure:ECT 0123 - CT Chest PE W Exam Date: Sep 11 2016 12:33PM Loc:[facility]IE20 Acc#: [id number] Pt_Class at Time of Procedure: I Current Pt Class and Location: [facility] [id number] Requesting Location: [facility] Priority: STAT Phone: [phone] Fax: [phone] Reason: shortness of breath shortness of breath [...] OF EXAM: ??Sep 10 2016 ??9:53PM Acc#: ??[id number] ??EDX 0167 - XR Chest 2 Views [...] Electronically signed by: Gerson Khan M.D. ? HYBRID TECHNOLOGIST: ??PSC TRANSCRIBE DATE/TIME: ??Sep 10 2016 10:48P RADIOLOGIST: ??GERSON KHAN M.D. ??READ ON: ??Sep 10 2016 10:52P ORDERING DR: TAYLOR BENEDICT M.D. THIS DOCUMENT HAS BEEN ELECTRONICALLY SIGNED BY: ??GERSON KHAN M.D. ??ON: ??Sep 10 2016 10:48P Attending: ??ALLISON, ??LAVONNE Requesting: ??JAK, ??TAYLOR Requesting Fax: ??[phone] Attending Fax: ??[phone] Attending ID: ??[id number] Requesting ID: ??[id number] Report To 1 ID: ?? Report To 1 Name: ??, ?? Report To 1 FAX: ??-- Report To 2 ID: ?? Report To 2 Name: ??, ?? Report To 2 FAX: ??-- NextGen Order #: ?? Procedure Note Miscellaneous, Not In File / Provider, MD Tyler - 09/18/2016 DATE OF EXAM: Sep 10 2016 9:53PM Acc#: [id number] EDX 0167 - XR Chest 2 Views [...] abnormality. Electronically signed by: Gerson Khan M.D. HYBRID TECHNOLOGIST: PSC TRANSCRIBE DATE/TIME: Sep 10 2016 10:48P RADIOLOGIST: GERSON KHAN M.D. READ ON: Sep 10 2016 10:52P ORDERING DR: TAYLOR BENEDICT M.D. THIS DOCUMENT HAS BEEN ELECTRONICALLY SIGNED BY: GERSON KHAN M.D. ON: Sep 10 2016 10:48P Attending: LAVONNE COOPER Requesting: TAYLOR BENEDICT Requesting Attending Attending ID: [id number] Requesting ID: [id number] Report To 1 ID: Report To 1 Name: , Report To 1 FAX: -- Report To 2 ID: Report To 2 Name: , Report To 2 FAX: -- NextGen Order #: us Not In File Miscellaneous IMG XR PROCEDURES Deann l Result documented in this encounter Visit Diagnoses Not on filedocumented in this encounter Care Teams Motor Vehicle Dispatcher Relationship Specialty Start Date End Date Lavonne Hathaway MD [address] [place] [address] [place] [address] PCP - General 08/16/16 08/17/17 documented as of this encounter
--- OUTSIDE RECORDS SUMMARY | 2024-04-26 09:32 | XMS_ITS | Encounter Summary ---
Author Organization [facility] Healthcare Address [address] [place] [address] Care Team Providers Care Ring Packer Name Role Phone Lavonne Hathaway MD Primary Care Provider +1- [phone] Encounter Details Date Type Department Care Team (Late st Contact Info) Description 09/12/2016 Orders Only [facility] [phone] [place] [address] [id number] Social History Tobacco Use Types Packs/Day Years Used Date Smoking Tobacco: Former Alcohol Use Standard Drinks/Week Comments No 0 (1 standard drink = 0.6 oz pur e alcohol) Comments Unknown Sex and Gender Information Value Date Recorded Sex Assigned at Not on file 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
--- OUTSIDE RECORDS SUMMARY | 2024-04-26 09:32 | XMS_ITS | Encounter Summary ---
Author Organization [facility] Healthcare Address [address] [place] [address] Care Team Providers Care Urologist Md Name Role Phone Lavonne Hathaway MD Primary Care Provider +1- [phone] Encounter Details Date Type Department Care Team (Late st Contact Info) Description 09/13/2016 Orders Only [facility] [phone] [place] [address] [id number] Social History Tobacco Use Types Packs/Day Years Used Date Smoking Tobacco: Former Alcohol Use Standard Drinks/Week Comments No 0 (1 standard drink = 0.6 oz pur e alcohol) Comments Unknown Sex and Gender Information Value Date Recorded Sex Assigned at Not on file 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
--- OUTSIDE RECORDS SUMMARY | 2024-04-26 09:32 | XMS_ITS | Encounter Summary ---
Author Organization [facility] Healthcare Address [address] [place] [address] Care Team Providers Care Community Service Coordinator Name Role Phone Lavonne Hathaway MD Primary Care Provider +1- [phone] Encounter Details Date Type Department Care Team (Late st Contact Info) Description 09/12/2016 Orders Only [facility] [phone] [place] [address] [id number] Social History Tobacco Use Types Packs/Day Years Used Date Smoking Tobacco: Former Alcohol Use Standard Drinks/Week Comments No 0 (1 standard drink = 0.6 oz pur e alcohol) Comments Unknown Sex and Gender Information Value Date Recorded Sex Assigned at Not on file 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
--- OUTSIDE RECORDS SUMMARY | 2024-04-26 09:32 | XMS_ITS | Encounter Summary ---
Author Organization [facility] Medical Group Address [address] [facility] [address] [place] [address] Care Team Providers Care Cartridge Feeder Name Role Phone Lavonne Hathaway MD Primary Care Provider +1- [phone] Encounter Details Date Type Department Care Team (Late st Contact Info) Description 09/13/2016 Orders Only [facility] Hospitalists [address] [place] [address] [place] [address] [facility] [address] [place] [address] Social History Tobacco Use Types Packs/Day Years Used Date Smoking Tobacco: Former Alcohol Use Standard Drinks/Week Comments No 0 (1 standard drink = 0.6 oz pur e alcohol) Comments Unknown Sex and Gender Information Value Date Recorded Sex Assigned at Not on file 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
--- OUTSIDE RECORDS SUMMARY | 2024-04-26 09:32 | XMS_ITS | Encounter Summary ---
Author Organization [facility] Healthcare Address [address] [place] [address] Care Team Providers Care Food Service Coordinator Name Role Phone Lavonne Hathaway MD Primary Care Provider +1- [phone] Encounter Details Date Type Department Care Team (Late st Contact Info) Description 09/12/2016 Orders Only [facility] [phone] [place] [address] [id number] Social History Tobacco Use Types Packs/Day Years Used Date Smoking Tobacco: Former Alcohol Use Standard Drinks/Week Comments No 0 (1 standard drink = 0.6 oz pur e alcohol) Comments Unknown Sex and Gender Information Value Date Recorded Sex Assigned at Not on file 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
--- OUTSIDE RECORDS SUMMARY | 2024-04-26 09:32 | XMS_ITS | Encounter Summary ---
Author Organization [facility] Medical Group Address [address] [facility] [address] [place] [address] Care Team Providers Care Tape Control Skin Or Spar Mill Operator Name Role Phone Lavonne Hathaway MD Primary Care Provider +1- [phone] Encounter Details Date Type Department Care Team (Late st Contact Info) Description 09/13/2016 Orders Only [facility] Hospitalists [address] [place] [address] [place] [address] [facility] [address] [place] [address] Social History Tobacco Use Types Packs/Day Years Used Date Smoking Tobacco: Former Alcohol Use Standard Drinks/Week Comments No 0 (1 standard drink = 0.6 oz pur e alcohol) Comments Unknown Sex and Gender Information Value Date Recorded Sex Assigned at Not on file 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 Gender Identity Not on file Sexual [...] CH Hgb 11.9 11.9 - 15.5 g/dL [facility] Hct 38.3 35.6 - 45.5 % [facility] MCV 91.8 81.3 - 96.4 fL [facility] MCH 28.5 27.1 - 33.3 pg [facility] MCHC 31.1(L) 32.3 - 35.7 g/dL [facility] RDW CV 14.2 11.1 - 14.9 % [facility] RDW SD 47.7 35.7 - 48.1 fL [facility] Plt 265 150 - 400 K/cumm [facility] MPV 10.0 9.1 - 12.3 fL [facility] NRBC 0.0 0.0 - 0.2 % [facility] NRBC abs 0.00 0.00 - 0.01 K/cumm [facility] Blood specimen (specimen) 09/13/2016 8:30 AM CDT 09/13/2016 8:37 AM CDT Bernardo Painter MD LAB BLOOD ORDERABLES Final Resul t [facility] [address] [address] Department [place] [address] documented in this encounter Visit Diagnoses Not on filedocumented in this encounter Care Teams Tape Control Skin Or Spar Mill Operator Relationship Specialty Start Date End Date Lavonne Hathaway MD [address] [place] [address] [place] [address] PCP - General 08/16/16 08/17/17 documented as of this encounter
--- OUTSIDE RECORDS SUMMARY | 2024-04-26 09:32 | XMS_ITS | Encounter Summary ---
Author Organization [facility] Medical Group Address [address] [facility] [address] [place] [address] Care Team Providers Care Medical Staff Services Manager Name Role Phone Lavonne Hathaway MD Primary Care Provider +1- [phone] Encounter Details Date Type Department Care Team (Late st Contact Info) Description 09/13/2016 Orders Only [facility] Hospitalists [address] [place] [address] [place] [address] [facility] [address] [place] [address] Social History Tobacco Use Types Packs/Day Years Used Date Smoking Tobacco: Former Alcohol Use Standard Drinks/Week Comments No 0 (1 standard drink = 0.6 oz pur e alcohol) Comments Unknown Sex and Gender Information Value Date Recorded Sex Assigned at Not on file 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
--- OUTSIDE RECORDS SUMMARY | 2024-04-26 09:32 | XMS_ITS | Encounter Summary ---
Author Organization [facility] Healthcare Address [address] [place] [address] Care Team Providers Care Insurance Territory Manager Name Role Phone Lavonne Hathaway MD Primary Care Provider +1- [phone] Encounter Details Date Type Department Care Team (Late st Contact Info) Description 09/12/2016 Orders Only [facility] [phone] [place] [address] [id number] Social History Tobacco Use Types Packs/Day Years Used Date Smoking Tobacco: Former Alcohol Use Standard Drinks/Week Comments No 0 (1 standard drink = 0.6 oz pur e alcohol) Comments Unknown Sex and Gender Information Value Date Recorded Sex Assigned at Not on file 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
--- OUTSIDE RECORDS SUMMARY | 2024-04-26 09:32 | XMS_ITS | Encounter Summary ---
Author Organization [facility] Healthcare Address [address] [place] [address] Care Team Providers Care Health Program Specialist Name Role Phone Lavonne Hathaway MD Primary Care Provider +1- [phone] Encounter Details Date Type Department Care Team (Late st Contact Info) Description 09/13/2016 Orders Only [facility] [phone] [place] [address] [id number] Social History Tobacco Use Types Packs/Day Years Used Date Smoking Tobacco: Former Alcohol Use Standard Drinks/Week Comments No 0 (1 standard drink = 0.6 oz pur e alcohol) Comments Unknown Sex and Gender Information Value Date Recorded Sex Assigned at Not on file 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
--- OUTSIDE RECORDS SUMMARY | 2024-04-26 09:32 | XMS_ITS | Encounter Summary ---
Author Organization [facility] Healthcare Address [address] [place] [address] Care Team Providers Care Deck Steward Name Role Phone Lavonne Hathaway MD Primary Care Provider +1- [phone] Encounter Details Date Type Department Care Team (Late st Contact Info) Description 09/13/2016 Orders Only [facility] [phone] [place] [address] [id number] Social History Tobacco Use Types Packs/Day Years Used Date Smoking Tobacco: Former Alcohol Use Standard Drinks/Week Comments No 0 (1 standard drink = 0.6 oz pur e alcohol) Comments Unknown Sex and Gender Information Value Date Recorded Sex Assigned at Not on file 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
--- OUTSIDE RECORDS SUMMARY | 2024-04-26 09:32 | XMS_ITS | Encounter Summary ---
Author Organization [facility] Healthcare Address [address] [place] [address] Care Team Providers Care Stock Checkerer Name Role Phone Lavonne Hathaway MD Primary Care Provider +1- [phone] Encounter Details Date Type Department Care Team (Late st Contact Info) Description 09/12/2016 Orders Only [facility] [phone] Dorene Hernandez, DROSS PULLER [address] [address] Social History Tobacco Use Types Packs/Day Years Used Date Smoking Tobacco: Former Alcohol Use Standard Drinks/Week Comments No 0 (1 standard drink = 0.6 oz pur e alcohol) Comments Unknown Sex and Gender Information Value Date Recorded Sex Assigned at Not on file 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 Gender Identity Not on file Sexual [...] last revised on 2015 Testing performed by: [facility], [place] [address] Estimated Average Glucose 183 mg/dL MARY JANE ARNOLD Comment:Testing performed by : [facility], [place] [address] Blood specimen (specimen) 09/12/2016 5:54 AM CDT 09/12/2016 12:50 PM CDT Dorene Hernandez NP LAB BLOOD ORDERABLES Deann l Result MARY JANE [address] [address] Department [place] [address] documented in this encounter Visit Diagnoses Not on filedocumented in this encounter Care Teams Stock Checkerer Relationship Specialty Start Date End Date Lavonne Hathaway MD [facility] [address] PCP - General 08/16/16 08/17/17 documented as of this encounter
--- OUTSIDE RECORDS SUMMARY | 2024-04-26 09:32 | XMS_ITS | Encounter Summary ---
Author Organization [facility] Medical Group Address [address] [facility] [address] [place] [address] Care Team Providers Care Dog Handler Name Role Phone Lavonne Hathaway MD Primary Care Provider +1- [phone] Encounter Details Date Type Department Care Team (Late st Contact Info) Description 09/13/2016 Orders Only [facility] Hospitalists [address] [place] [address] [place] [address] [facility] [address] [place] [address] Social History Tobacco Use Types Packs/Day Years Used Date Smoking Tobacco: Former Alcohol Use Standard Drinks/Week Comments No 0 (1 standard drink = 0.6 oz pur e alcohol) Comments Unknown Sex and Gender Information Value Date Recorded Sex Assigned at Not on file 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
--- OUTSIDE RECORDS SUMMARY | 2024-04-26 09:32 | XMS_ITS | Encounter Summary ---
Author Organization [facility] Healthcare Address [address] [place] [address] Care Team Providers Care Nursing Techn Name Role Phone Lavonne Hathaway MD Primary Care Provider +1- [phone] Antoinette Zhu MD Primary Care Provider +1 -[phone] Lavonne Hathaway MD Primary Care Provider +1- [phone] Encounter Details Date Type Department Care Team (Latest Contact Info) Description 08/08/2016 10:37 AM CDT - 10/11/2016 11:59 PM T Hospital Encounter [facility] OP INTERIM [phone] Wero Kern MD PhD [address] [address] Discharge Disposition: Discharge to home or self care Social History Tobacco Use Types Packs/Day Years Used Date Smoking Tobacco: Former Alcohol Use Standard Drinks/Week Comments No 0 (1 standard drink = 0.6 oz pur e alcohol) Comments Unknown Sex and Gender Information Value Date Recorded Sex Assigned at Not on file 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 Gender Identity Not on file Sexual [...] with auto differential (10/11/2016 11:55 AM CDT) [facility] WBC 7.1 3.8 - 9.8 K/cumm [facility] RBC 4.09 3.90 - 5.00 M/cumm [facility] Hgb 11.6(L) 12.1 - 15.1 g/dL [facility] Hct 35.7(L) 36.1 - 44.3 % [facility] Mean Cellular Volume - CAM 87.3 80.0 - 97.6 fL [facility] Mean Cellular Hemoglobin - CAM 28.5 26.7 - 33.7 pg [facility] Mean Cellular Hemoglobin Concentration - CAM 32.6(L) 32.7 - 35.5 g/dL [facility] Rdw 14.7(H) 11.8 - 14.6 % [facility] Plt 262 140 - 440 K/cumm [facility] Mean Platelet Volume - CAM 7.6 6.8 - 10.4 fL [facility] Neutrophil pct 61.5 38.7 - 74.5 % [facility] Lymphocyte pct 28.4 20.0 - 54.3 % [facility] Monos 6.8 4.3 - 13.5 % [facility] Eosinophil pct 2.5 0.0 - 6.0 % [facility] Basophil pct 0.8 0.0 - 3.0 % [facility] Neutrophil abs 4.4 1.8 - 6.6 K/cumm [facility] Lymphocyte abs 2.0 1.2 - 3.3 K/cumm [facility] Monocyte abs 0.5 0.2 - 1.2 K/cumm [facility] Eosinophils, abs 0.2 0.0 - 0.5 K/cumm [facility] Basophil abs 0.1 0.0 - 0.2 K/cumm [facility] NRBC 0.0 0.0 - 0.2 % [facility] NRBC abs 0.00 0.00 - 0.01 K/cumm [facility] Blood specimen (specimen) 10/11/2016 11:55 AM CDT 10/11/2016 11:59 AM CDT us Notinfile Unknown LAB BLOOD ORDERABLES Final Res ult [facility] Department [place] [address] * (ABNORMAL) Comprehensive metabolic panel (10/11/2016 11:52 AM CDT) Sodium 136 135 - 145 mmol/L [facility] Potassium, pl 4.4 3.3 - 4.9 mmol/L [facility] CO2 26 22 - 32 mmol/L [facility] BUN 14 8 - 25 mg/dL [facility] Glucose 237(H) 70 - 199 mg/dL [facility] Creatinine 0.65 0.60 - 1.10 mg/dL [facility] Calcium 9.6 8.5 - 10.3 mg/dL [facility] Chloride 103 97 - 110 mmol/L [facility] Albumin 3.5 3.5 - 5.0 g/dL [facility] AST 20 10 - 45 Units/L [facility] ALT 22 7 - 45 Units/L [facility] Alk phos 60 40 - 130 Units/L [facility] Bilirubin, total 0.4 0.1 - 1.2 mg/dL [facility] Protein, pl 7.6 6.5 - 8.5 g/dL [facility] Anion gap 7 2 - 15 mmol/L [facility] Blood specimen (specimen) 10/11/2016 11:52 AM CDT 10/11/2016 12:07 PM CDT us Notinfile Unknown LAB BLOOD ORDERABLES Final Res ult [facility] [place] [address] * DISCHARGE LABORATORY CUMULATIVE REPORT (08/08/2016) us Provider Scanning LAB BLOOD ORDERABLES Final Res ult documented in this encounter Visit Diagnoses Not on filedocumented in this encounter Care Teams Nursing Techn Relationship Specialty Start Date End Date Lavonne Hathaway MD [address] [place] [address] [place] [address] PCP - General 07/27/16 08/10/16 Antoinette Zhu MD [address] [address] PCP - General 08/11/16 08/15/16 Lavonne Hathaway MD [facility] [place] [address] PCP - General 08/16/16 08/17/17 documented as of this encounter
--- OUTSIDE RECORDS SUMMARY | 2024-04-26 09:32 | XMS_ITS | Encounter Summary ---
Author Organization [facility] Address [address] [facility] [address] [place] [address] Care Team Providers Care Java Swing Developer Name Role Phone Lavonne Hathaway MD Primary Care Provider +1- [phone] Encounter Details Date Type Department Care Team (Late st Contact Info) Description 09/13/2016 Orders Only [facility] Hospitalists [address] [place] [address] [place] [address] [facility] [address] [place] [address] Social History Tobacco Use Types Packs/Day Years Used Date Smoking Tobacco: Former Alcohol Use Standard Drinks/Week Comments No 0 (1 standard drink = 0.6 oz pur e alcohol) Comments Unknown Sex and Gender Information Value Date Recorded Sex Assigned at Not on file 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
--- OUTSIDE RECORDS SUMMARY | 2024-04-26 09:32 | XMS_ITS | Encounter Summary ---
Author Organization [facility] Address [address] [facility] [address] [place] [address] Care Team Providers Care Conveyancer Name Role Phone Lavonne Hathaway MD Primary Care Provider +1- [phone] Encounter Details Date Type Department Care Team (Late st Contact Info) Description 09/13/2016 Orders Only [facility] Hospitalists [address] [place] [address] [place] [address] [facility] [address] [place] [address] Social History Tobacco Use Types Packs/Day Years Used Date Smoking Tobacco: Former Alcohol Use Standard Drinks/Week Comments No 0 (1 standard drink = 0.6 oz pur e alcohol) Comments Unknown Sex and Gender Information Value Date Recorded Sex Assigned at Not on file 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 Estimated glomerular filtration [...] BLOOD ORDERABLES Final Resul t MARY JANE [address] [address] [place] [address] documented in this encounter Visit Diagnoses Not on filedocumented in this encounter Care Teams Conveyancer Relationship Specialty Start Date End Date Lavonne Hathaway MD [address] [place] [address] [place] [address] PCP - General 08/16/16 08/17/17 documented as of this encounter
--- OUTSIDE RECORDS SUMMARY | 2024-04-26 09:32 | XMS_ITS | Encounter Summary ---
Author Organization [facility] Healthcare Address [address] [place] [address] Care Team Providers Care Auto Inspector Name Role Phone Lavonne Hathaway MD Primary Care Provider +1- [phone] Encounter Details Date Type Department Care Team (Late st Contact Info) Description 09/13/2016 Orders Only [facility] [phone] [place] [address] [id number] Social History Tobacco Use Types Packs/Day Years Used Date Smoking Tobacco: Former Alcohol Use Standard Drinks/Week Comments No 0 (1 standard drink = 0.6 oz pur e alcohol) Comments Unknown Sex and Gender Information Value Date Recorded Sex Assigned at Not on file 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
--- OUTSIDE RECORDS SUMMARY | 2024-04-26 09:33 | XMS_ITS | Encounter Summary ---
Author Organization [facility] Healthcare Address [address] [place] [address] Care Team Providers Care Coat Repair Inspector Name Role Phone Lavonne Hathaway MD Primary Care Provider +1- [phone] Encounter Details Date Type Department Care Team (Late st Contact Info) Description 09/11/2016 Orders Only [facility] [phone] [place] [address] [facility] [address] [place] [address] Social History Tobacco Use Types Packs/Day Years Used Date Smoking Tobacco: Former Alcohol Use Standard Drinks/Week Comments No 0 (1 standard drink = 0.6 oz pur e alcohol) Comments Unknown Sex and Gender Information Value Date Recorded Sex Assigned at Not on file 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
--- OUTSIDE RECORDS SUMMARY | 2024-04-26 09:33 | XMS_ITS | Encounter Summary ---
Author Organization [facility] Healthcare Address [address] [place] [address] Care Team Providers Care Cloth Wire Weaver Name Role Phone Lavonne Hathaway MD Primary Care Provider +1- [phone] Encounter Details Date Type Department Care Team (Late st Contact Info) Description 09/10/2016 Orders Only [facility] [phone] [place] [address] [facility] [address] [place] [address] Social History Tobacco Use Types Packs/Day Years Used Date Smoking Tobacco: Former Alcohol Use Standard Drinks/Week Comments No 0 (1 standard drink = 0.6 oz pur e alcohol) Comments Unknown Sex and Gender Information Value Date Recorded Sex Assigned at Not on file 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 >0.50 ng/mL Current interpretive data was last reviewed 2015 Blood specimen (specimen) 09/10/2016 9:07 PM CDT 09/10/2016 9:10 PM CDT us Erick Davis MD LAB BLOOD ORDERABLES Edite d Result - Final MARY JANE [address] [address] Department [place] [address] documented in this encounter Visit Diagnoses Not on filedocumented in this encounter Care Teams Cloth Wire Weaver Relationship Specialty Start Date End Date Lavonne Hathaway MD [address] [place] [address] [place] [address] PCP - General 08/16/16 08/17/17 documented as of this encounter
--- OUTSIDE RECORDS SUMMARY | 2024-04-26 09:33 | XMS_ITS | Encounter Summary ---
Author Organization [facility] Healthcare Address [address] [place] [address] Care Team Providers Care Ict Sales Assistant Name Role Phone Lavonne Hathaway MD Primary Care Provider +1- [phone] Encounter Details Date Type Department Care Team (Late st Contact Info) Description 09/10/2016 Orders Only [facility] [phone] [place] [address] [facility] [address] [place] [address] Social History Tobacco Use Types Packs/Day Years Used Date Smoking Tobacco: Former Alcohol Use Standard Drinks/Week Comments No 0 (1 standard drink = 0.6 oz pur e alcohol) Comments Unknown Sex and Gender Information Value Date Recorded Sex Assigned at Not on file Legal Sex Female 12:24 AM DEVOPS SOLUTIONS ARCHITECT Gender Identity Not on file Sexual [...] BLOOD ORDERABLES Final Result M[facility]ANE ARNOLD [address] [address] Department [place] [address] documented in this encounter Visit Diagnoses Not on filedocumented in this encounter Care Teams Ict Sales Assistant Relationship Specialty Start Date End Date Lavonne Hathaway MD [facility] [place] [address] PCP - General 08/16/16 08/17/17 documented as of this encounter
--- OUTSIDE RECORDS SUMMARY | 2024-04-26 09:33 | XMS_ITS | Encounter Summary ---
Author Organization [facility] Healthcare Address [address] [place] [address] Care Team Providers Care Orchid Hand Name Role Phone Lavonne Hathaway MD Primary Care Provider +1- [phone] Encounter Details Date Type Department Care Team (Late st Contact Info) Description 09/11/2016 Orders Only [facility] [phone] [place] [address] [id number] Social History Tobacco Use Types Packs/Day Years Used Date Smoking Tobacco: Former Alcohol Use Standard Drinks/Week Comments No 0 (1 standard drink = 0.6 oz pur e alcohol) Comments Unknown Sex and Gender Information Value Date Recorded Sex Assigned at Not on file 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 [place] [address] PCP - General 08/16/16 08/17/17 documented as of this encounter
--- OUTSIDE RECORDS SUMMARY | 2024-04-26 09:33 | XMS_ITS | Encounter Summary ---
Author Organization [facility] Healthcare Address [address] [place] [address] Care Team Providers Care Email Operations Manager Name Role Phone Lavonne Hathaway MD Primary Care Provider +1- [phone] Encounter Details Date Type Department Care Team (Late st Contact Info) Description 09/11/2016 Orders Only [facility] [phone] [place] [address] [id number] Social History Tobacco Use Types Packs/Day Years Used Date Smoking Tobacco: Former Alcohol Use Standard Drinks/Week Comments No 0 (1 standard drink = 0.6 oz pur e alcohol) Comments Unknown Sex and Gender Information Value Date Recorded Sex Assigned at Not on file 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
--- OUTSIDE RECORDS SUMMARY | 2024-04-26 09:33 | XMS_ITS | Encounter Summary ---
Author Organization [facility] Healthcare Address [address] [place] [address] Care Team Providers Care Operations Research Group Manager Name Role Phone Lavonne Hathaway MD Primary Care Provider +1- [phone] Encounter Details Date Type Department Care Team (Late st Contact Info) Description 09/12/2016 Orders Only [facility] [phone] Dorene Hernandez, INSTRUCTIONAL TECHNOLOGY COORDINATOR [address] [address] Social History Tobacco Use Types Packs/Day Years Used Date Smoking Tobacco: Former Alcohol Use Standard Drinks/Week Comments No 0 (1 standard drink = 0.6 oz pur e alcohol) Comments Unknown Sex and Gender Information Value Date Recorded Sex Assigned at Not on file Legal Sex Female 12:24 AM ODD PIECE CHECKER Gender Identity Not on file Sexual [...] CDT 09/12/2016 6:37 AM CDT Dorene Hernandez INSTRUCTIONAL TECHNOLOGY COORDINATOR LAB BLOOD ORDERABLES Deann bowman Result MARY JANE [address] Department of Laboratories [place] [id number] documented in this encounter Visit Diagnoses Not on filedocumented in this encounter Care Teams Operations Research Group Manager Relationship Specialty Start Date End Date Lavonne Hathaway MD [facility] [place] [address] PCP - General 08/16/16 08/17/17 documented as of this encounter
--- OUTSIDE RECORDS SUMMARY | 2024-04-26 09:33 | XMS_ITS | Encounter Summary ---
Author Organization [facility] Healthcare Address [address] [place] [address] Care Team Providers Care Nuclear Powerplant Mechanic Helper Name Role Phone Lavonne Hathaway MD Primary Care Provider +1- [phone] Encounter Details Date Type Department Care Team (Late st Contact Info) Description 09/10/2016 Orders Only [facility] [phone] [place] [address] [facility] [address] [place], [place] [id number] Social History Tobacco Use Types Packs/Day Years Used Date Smoking Tobacco: Former Alcohol Use Standard Drinks/Week Comments No 0 (1 standard drink = 0.6 oz pur e alcohol) Comments Unknown Sex and Gender Information Value Date Recorded Sex Assigned at Not on file Legal Sex Female 12:24 AM SENIOR ARCHITECT Gender Identity Not on file Sexual [...] ??mL/min/1.73m2 *Relative to young adult level If -Turkish multiply value by 1.16. Estimated glomerular filtration [...] LAB BLOOD ORDERABLES Final Result MARY JANE [address] [address] Department [place] [address] documented in this encounter Visit Diagnoses Not on filedocumented in this encounter Care Teams Nuclear Powerplant Mechanic Helper Relationship Specialty Start Date End Date Lavonne Hathaway MD [address] [place] [address] [place] [address] PCP - General 08/16/16 08/17/17 documented as of this encounter
--- OUTSIDE RECORDS SUMMARY | 2024-04-26 09:33 | XMS_ITS | Encounter Summary ---
Author Organization [facility] Healthcare Address [address] [place] [address] Care Team Providers Care Family Manager Name Role Phone Lavonne Hathaway MD Primary Care Provider +1- [phone] Encounter Details Date Type Department Care Team (Late st Contact Info) Description 09/10/2016 Orders Only [facility] [phone] [place] [address] [facility] [address] [place] [address] Social History Tobacco Use Types Packs/Day Years Used Date Smoking Tobacco: Former Alcohol Use Standard Drinks/Week Comments No 0 (1 standard drink = 0.6 oz pur e alcohol) Comments Unknown Sex and Gender Information Value Date Recorded Sex Assigned at Not on file 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
--- OUTSIDE RECORDS SUMMARY | 2024-04-26 09:33 | XMS_ITS | Encounter Summary ---
Author Organization [facility] Healthcare Address [address] [place] [address] Care Team Providers Care Stem Crusher Name Role Phone Lavonne Hathaway MD Primary Care Provider +1- [phone] Encounter Details Date Type Department Care Team (Late st Contact Info) Description 09/11/2016 Orders Only [facility] [phone] Unknown, Notinfile Social History Tobacco Use Types Packs/Day Years Used Date Smoking Tobacco: Former Alcohol Use Standard Drinks/Week Comments No 0 (1 standard drink = 0.6 oz pur e alcohol) Comments Unknown Sex and Gender Information Value Date Recorded Sex Assigned at Not on file 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
--- OUTSIDE RECORDS SUMMARY | 2024-04-26 09:33 | XMS_ITS | Encounter Summary ---
Author Organization [facility] Healthcare Address [address] [place] [address] Care Team Providers Care Spa Associate Name Role Phone Lavonne Hathaway MD Primary Care Provider +1- [phone] Encounter Details Date Type Department Care Team (Late st Contact Info) Description 09/11/2016 Orders Only [facility] [phone] [place] [address] [facility] [address] [place] [address] Social History Tobacco Use Types Packs/Day Years Used Date Smoking Tobacco: Former Alcohol Use Standard Drinks/Week Comments No 0 (1 standard drink = 0.6 oz pur e alcohol) Comments Unknown Sex and Gender Information Value Date Recorded Sex Assigned at Not on file Legal Sex Female 12:24 AM PERSONAL INJURY LEGAL ASSISTANT Gender Identity Not on file [...] LAB BLOOD ORDERABLES Final Re sult [facility] [address] [address] Department [place] [address] documented in this encounter Visit Diagnoses Not on filedocumented in this encounter Care Teams Spa Associate Relationship Specialty Start Date End Date Lavonne Hathaway MD [facility] [place] [address] PCP - General 08/16/16 08/17/17 documented as of this encounter
--- OUTSIDE RECORDS SUMMARY | 2024-04-26 09:33 | XMS_ITS | Encounter Summary ---
Author Organization [facility] Healthcare Address [address] [place] [address] Care Team Providers Care Patient Account Specialist Name Role Phone Lavonne Hathaway MD Primary Care Provider +1- [phone] Encounter Details Date Type Department Care Team (Late st Contact Info) Description 09/11/2016 Orders Only [facility] [phone] [place] [address] [facility] [address] [place] [address] Social History Tobacco Use Types Packs/Day Years Used Date Smoking Tobacco: Former Alcohol Use Standard Drinks/Week Comments No 0 (1 standard drink = 0.6 oz pur e alcohol) Comments Unknown Sex and Gender Information Value Date Recorded Sex Assigned at Not on file Legal Sex Female 12:24 AM SECURITY COMPLIANCE SPECIALIST Gender Identity Not on file Sexual Orientation Not on file documented as of this encounter Plan of Treatment Not on file documented as of this encounter Procedures Procedure Name Priority Date/Time Associated Diagnosis Comments TROPONIN I Today 09/11/2016 1:32 PM CDT documented in this encounter Results * Troponin I (09/11/2016 1:32 PM CDT) Troponin I <0.03 0.00 - 0.14 ng/mL MARY JANE RANOLD Comment: Interpretive Data Normal: ? 0.00 - 0.14 ng/mL Indeterminate: ?0.15 - 0.50 ng/mL [place] / Cardiac Muscle Damage: ? >0.50 ng/mL Current interpretive data was last reviewed 2015 Blood specimen (specimen) 09/11/2016 1:32 PM CDT 09/11/2016 1:36 PM CDT us Rosio Horton MD LAB BLOOD ORDERABLES Final Re sult MARY JANE [address] [address] Department [place] [address] documented in this encounter Visit Diagnoses Not on filedocumented in this encounter Care Teams Patient Account Specialist Relationship Specialty Start Date End Date Lavonne Hathaway MD [facility] [place] [address] PCP - General 08/16/16 08/17/17 documented as of this encounter
--- OUTSIDE RECORDS SUMMARY | 2024-04-26 09:33 | XMS_ITS | Encounter Summary ---
Author Organization [facility] Healthcare Address [address] [place] [address] Care Team Providers Care Assistant Professor Of Radiology Name Role Phone Lavonne Hathaway MD Primary Care Provider +1- [phone] Encounter Details Date Type Department Care Team (Late st Contact Info) Description 09/12/2016 Orders Only Cerner Lab Interim [phone] Dorene Hernandez, SELF STORAGE MANAGER [address] [id number] Social History Tobacco Use Types Packs/Day Years Used Date Smoking Tobacco: Former Alcohol Use Standard Drinks/Week Comments No 0 (1 standard drink = 0.6 oz pur e alcohol) Comments Unknown Sex and Gender Information Value Date Recorded Sex Assigned at Not on file Legal Sex Female 12:24 AM MANAGER MISSION Gender Identity Not on file Sexual Orientation [...] CDT 09/12/2016 6:37 AM CDT Dorene Hernandez SELF STORAGE MANAGER LAB BLOOD ORDERABLES Deann bowman Result MARY JANE ARNOLD [address] [address] Department of Laboratories [place], [place] [id number] documented in this encounter Visit Diagnoses Not on filedocumented in this encounter Care Teams Assistant Professor Of Radiology Relationship Specialty Start Date End Date Lavonne Hathaway MD [facility] [place] [address] PCP - General 08/16/16 08/17/17 documented as of this encounter
--- OUTSIDE RECORDS SUMMARY | 2024-04-26 09:33 | XMS_ITS | Encounter Summary ---
Author Organization [facility] Healthcare Address [address] [place] [address] Care Team Providers Care Core Filer Name Role Phone Lavonne Hathaway MD Primary Care Provider +1- [phone] Encounter Details Date Type Department Care Team (Late st Contact Info) Description 09/11/2016 Orders Only Cerner Lab Interim [phone] [place] [address] [id number] Social History Tobacco Use Types Packs/Day Years Used Date Smoking Tobacco: Former Alcohol Use Standard Drinks/Week Comments No 0 (1 standard drink = 0.6 oz pur e alcohol) Comments Unknown Sex and Gender Information Value Date Recorded Sex Assigned at Not on file 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
--- OUTSIDE RECORDS SUMMARY | 2024-04-26 09:33 | XMS_ITS | Encounter Summary ---
Author Organization [facility] Healthcare Address [address] [place] [address] Care Team Providers Care Order Entry Administrator Name Role Phone Lavonne Hathaway MD Primary Care Provider +1- [phone] Encounter Details Date Type Department Care Team (Late st Contact Info) Description 09/12/2016 Orders Only Cerner Lab Interim [phone] [place] [address] [id number] Social History Tobacco Use Types Packs/Day Years Used Date Smoking Tobacco: Former Alcohol Use Standard Drinks/Week Comments No 0 (1 standard drink = 0.6 oz pur e alcohol) Comments Unknown Sex and Gender Information Value Date Recorded Sex Assigned at Not on file Legal Sex Female 12:24 AM TRIM AND BURR OPERATOR Gender Identity Not on file Sexual [...] ORDERABLES F inal Result MARY JANE ARNOLD [address] [address] Luna Department [place] [address] documented in this encounter Visit Diagnoses Not on filedocumented in this encounter Care Teams Order Entry Administrator Relationship Specialty Start Date End Date Lavonne Hathaway MD [facility] [place] [address] PCP - General 08/16/16 08/17/17 documented as of this encounter
--- OUTSIDE RECORDS SUMMARY | 2024-04-26 09:33 | XMS_ITS | Encounter Summary ---
Author Organization [facility] Healthcare Address [address] [place] [address] Care Team Providers Care Interventional Radiology Rn Name Role Phone Lavonne Hathaway MD Primary Care Provider +1- [phone] Encounter Details Date Type Department Care Team (Late st Contact Info) Description 09/12/2016 Orders Only Cerner Lab Interim [phone] [place] [address] [id number] Social History Tobacco Use Types Packs/Day Years Used Date Smoking Tobacco: Former Alcohol Use Standard Drinks/Week Comments No 0 (1 standard drink = 0.6 oz pur e alcohol) Comments Unknown Sex and Gender Information Value Date Recorded Sex Assigned at Not on file Legal Sex Female 12:24 AM HEATER PLANER OPERATOR Gender Identity Not on file Sexual [...] ORDERABLES F inal Result MARY JANE ARNOLD [address] [address] Luna Department [place] [address] documented in this encounter Visit Diagnoses Not on filedocumented in this encounter Care Teams Interventional Radiology Rn Relationship Specialty Start Date End Date Lavonne Hathaway MD [facility] [place] [address] PCP - General 08/16/16 08/17/17 documented as of this encounter
--- OUTSIDE RECORDS SUMMARY | 2024-04-26 09:33 | XMS_ITS | Encounter Summary ---
Author Organization [facility] Healthcare Address [address] [place] [address] Care Team Providers Care Lumber Carrier Operator Name Role Phone Lavonne Hathaway MD Primary Care Provider +1- [phone] Encounter Details Date Type Department Care Team (Late st Contact Info) Description 09/11/2016 Orders Only Cerner Lab Interim [phone] [place] [address] [facility] [address] [place] [address] Social History Tobacco Use Types Packs/Day Years Used Date Smoking Tobacco: Former Alcohol Use Standard Drinks/Week Comments No 0 (1 standard drink = 0.6 oz pur e alcohol) Comments Unknown Sex and Gender Information Value Date Recorded Sex Assigned at Not on file Legal Sex Female 12:24 AM LOOP CUTTER Gender Identity Not on file Sexual [...] ORDERABLES Final Re sult MARY JANE ARNOLD [address] [address] Luna Department [place] [address] documented in this encounter Visit Diagnoses Not on filedocumented in this encounter Care Teams Lumber Carrier Operator Relationship Specialty Start Date End Date Lavonne Hathaway MD [facility] [place] [address] PCP - General 08/16/16 08/17/17 documented as of this encounter
--- OUTSIDE RECORDS SUMMARY | 2024-04-26 09:33 | XMS_ITS | Encounter Summary ---
Author Organization [facility] Healthcare Address [address] [place] [address] Care Team Providers Care Brass Instrument Repair Technician Name Role Phone Lavonne Hathaway MD Primary Care Provider +1- [phone] Encounter Details Date Type Department Care Team (Late st Contact Info) Description 09/10/2016 Orders Only Cerner Lab Interim [phone] [place] [address] [facility] [address] [place] [address] Social History Tobacco Use Types Packs/Day Years Used Date Smoking Tobacco: Former Alcohol Use Standard Drinks/Week Comments No 0 (1 standard drink = 0.6 oz pur e alcohol) Comments Unknown Sex and Gender Information Value Date Recorded Sex Assigned at Not on file 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
--- OUTSIDE RECORDS SUMMARY | 2024-04-26 09:33 | XMS_ITS | Encounter Summary ---
Author Organization [facility] Healthcare Address [address] [place] [address] Care Team Providers Care Surveillance Sensor Operator Name Role Phone Lavonne Hathaway MD Primary Care Provider +1- [phone] Encounter Details Date Type Department Care Team (Late st Contact Info) Description 09/11/2016 Orders Only Cerner Lab Interim [phone] [place] [address] [facility] [address] [place] [address] Social History Tobacco Use Types Packs/Day Years Used Date Smoking Tobacco: Former Alcohol Use Standard Drinks/Week Comments No 0 (1 standard drink = 0.6 oz pur e alcohol) Comments Unknown Sex and Gender Information Value Date Recorded Sex Assigned at Not on file Legal Sex Female 12:24 AM ICICLE MACHINE OPERATOR Gender Identity Not on file [...] BLOOD ORDERABLES Final Re sult MARY JANE [address] Anders Luna Department [place] [address] documented in this encounter Visit Diagnoses Not on filedocumented in this encounter Care Teams Surveillance Sensor Operator Relationship Specialty Start Date End Date Lavonne Hathaway MD [facility] [place] [address] PCP - General 08/16/16 08/17/17 documented as of this encounter
--- OUTSIDE RECORDS SUMMARY | 2024-04-26 09:33 | XMS_ITS | Encounter Summary ---
Author Organization [facility] Healthcare Address [address] [place] [address] Care Team Providers Care Analytics Director Name Role Phone Lavonne Hathaway MD Primary Care Provider +1- [phone] Encounter Details Date Type Department Care Team (Late st Contact Info) Description 09/10/2016 Orders Only Cerner Lab Interim [phone] [place] [address] [facility] [address] [place], [place] [id number] Social History Tobacco Use Types Packs/Day Years Used Date Smoking Tobacco: Former Alcohol Use Standard Drinks/Week Comments No 0 (1 standard drink = 0.6 oz pur e alcohol) Comments Unknown Sex and Gender Information Value Date Recorded Sex Assigned at Not on file Legal Sex Female 12:24 AM OPTIONS ADVISOR Gender Identity Not on file Sexual [...] GENERAL OR DERABLES Final Result MARY JANE [address] [address] Luna Department [place] [address] documented in this encounter Visit Diagnoses Not on filedocumented in this encounter Care Teams Analytics Director Relationship Specialty Start Date End Date Lavonne Hathaway MD [facility] [place] [address] PCP - General 08/16/16 08/17/17 documented as of this encounter
--- OUTSIDE RECORDS SUMMARY | 2024-04-26 09:34 | XMS_ITS | Encounter Summary ---
Author Organization [facility] Address [address] [place] [address] Care Team Providers Care Financial Investment Adviser Name Role Phone Lavonne Hathaway MD Primary Care Provider +1- [phone] Antoinette Zhu MD Primary Care Provider +1 -[phone] Lavonne Hathaway MD Primary Care Provider +1- [phone] Encounter Details Date Type Department Care Team (Late st Contact Info) Description 08/01/2016 Orders Only Cerner Lab Interim [phone] Unknown, Notinfile Social History Tobacco Use Types Packs/Day Years Used Date Smoking Tobacco: Former Alcohol Use Standard Drinks/Week Comments No 0 (1 standard drink = 0.6 oz pur e alcohol) Comments Unknown Sex and Gender Information Value Date Recorded Sex Assigned at Not on file 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 ??J Am Wang Cardiol 2012;60:1581-98). Current interpretive data was last revised on 13. Blood specimen (specimen) 08/01/2016 12:50 AM CDT 08/01/2016 1:02 AM CDT us Notinfile Unknown LAB BLOOD ORDERABLES Edited Re sult - Final MARY JANE ANGELES [facility] Department [place] [address] documented in this encounter Visit Diagnoses Not on filedocumented in this encounter Care Teams Financial Investment Adviser Relationship Specialty Start Date End Date Lavonne Hathaway MD [address] [place] [address] [place] [address] PCP - General 07/27/16 08/10/16 Antoinette Zhu MD [address] [address] PCP - General 08/11/16 08/15/16 Lavonne Hathaway MD [address] [place] [address] [place] [address] PCP - General 08/16/16 08/17/17 documented as of this encounter
--- OUTSIDE RECORDS SUMMARY | 2024-04-26 09:34 | XMS_ITS | Encounter Summary ---
Author Organization [facility] Healthcare Address [address] [place] [address] Care Team Providers Care Mortgage Loan Computation Clerk Name Role Phone Lavonne Hathaway MD Primary Care Provider +1- [phone] Encounter Details Date Type Department Care Team (Latest Contact Info) Description 08/16/2016 7:36 AM CDT - 08/16/2016 11:59 PM CDT Hospital Encounter [facility] OP INTERIM [phone] Khris Arthur MD [address] 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 ACC# ??Date Time ??Exam [id number] Aug 16, 2016 09:18:00 [id number] MRI Lower Extrm wo and wi cont L ACC# ??Date Time ??Exam [id number] Aug 16, 2016 09:18:00 [id number] MRI Lower Extrm wo and wi cont [...] document has been electronically signed by: PAUL MOIRLLO M.D. on Aug 16 2016 ??2:36P [id number] Procedure Note Miscellaneous, Not In File / Provider, MD Tyler - 09/17/2016 PAUL MORILLO M.D. NIYAH FELICIANO M.D. FINAL REPORT The radiology attending physician has personally reviewed this study, and has reviewed and/or edited this written report and agrees with it. ACC# Date Time Exam [id number] Aug 16, 2016 09:18:00 [id number] MRI Lower Extrm wo and wi cont L ACC# Date Time Exam [id number] Aug 16, 2016 09:18:00 [id number] MRI Lower Extrm wo and wi cont [...] MORILLO M.D. on Aug 16 2016 2:36P [id number] us Not In File Miscellaneous IMG MRI PROCEDURES Fin al Result documented in this encounter Visit Diagnoses Not on filedocumented in this encounter Care Teams Mortgage Loan Computation Clerk Relationship Specialty Start Date End Date Lavonne Hathaway MD [facility] [place] [address] PCP - General 08/16/16 08/17/17 documented as of this encounter
--- OUTSIDE RECORDS SUMMARY | 2024-04-26 09:34 | XMS_ITS | Encounter Summary ---
Author Organization [facility] Healthcare Address [address] [place] [address] Care Team Providers Care Roguer Name Role Phone Lavonne Hathaway MD Primary Care Provider +1- [phone] Antoinette Zhu MD Primary Care Provider +1 -[phone] Lavonne Hathaway MD Primary Care Provider +1- [phone] Encounter Details Date Type Department Care Team (Late st Contact Info) Description 08/01/2016 Orders Only Cerner Lab Interim [phone] Unknown, Notinfile Social History Tobacco Use Types Packs/Day Years Used Date Smoking Tobacco: Former Alcohol Use Standard Drinks/Week Comments No 0 (1 standard drink = 0.6 oz pur e alcohol) Comments Unknown Sex and Gender Information Value Date Recorded Sex Assigned at Not on file 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 Gender Identity Not on file Sexual [...] Final Res ult MARY JANE ANGELES [facility] Department [place] [address] documented in this encounter Visit Diagnoses Not on filedocumented in this encounter Care Teams Roguer Relationship Specialty Start Date End Date Lavonne Hathaway MD [address] [place] [address] [place] [address] PCP - General 07/27/16 08/10/16 Antoinette Zhu MD [address] [address] PCP - General 08/11/16 08/15/16 Lavonne Hathaway MD [address] [place] [address] [place] [address] PCP - General 08/16/16 08/17/17 documented as of this encounter
--- OUTSIDE RECORDS SUMMARY | 2024-04-26 09:34 | XMS_ITS | Encounter Summary ---
Author Organization [facility] Healthcare Address [address] [place] [address] Care Team Providers Care Family Consumer Science Teacher Name Role Phone Lavonne Hathaway MD Primary Care Provider +1- [phone] Encounter Details Date Type Department Care Team (Late st Contact Info) Description 09/10/2016 Orders Only Cerner Lab Interim [phone] [place] [address] [facility] [address] [place] [address] Social History Tobacco Use Types Packs/Day Years Used Date Smoking Tobacco: Former Alcohol Use Standard Drinks/Week Comments No 0 (1 standard drink = 0.6 oz pur e alcohol) Comments Unknown Sex and Gender Information Value Date Recorded Sex Assigned at Not on file 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
--- OUTSIDE RECORDS SUMMARY | 2024-04-26 09:34 | XMS_ITS | Encounter Summary ---
Author Organization [facility] Healthcare Address [address] [place] [address] Care Team Providers Care Marine Plumber Name Role Phone Lavonne Hathaway MD Primary Care Provider +1- [phone] Antoinette Zhu MD Primary Care Provider +1 -[phone] Lavonne Hathaway MD Primary Care Provider +1- [phone] Encounter Details Date Type Department Care Team (Late st Contact Info) Description 08/01/2016 Orders Only Cerner Lab Interim [phone] Unknown, Notinfile Social History Tobacco Use Types Packs/Day Years Used Date Smoking Tobacco: Former Alcohol Use Standard Drinks/Week Comments No 0 (1 standard drink = 0.6 oz pur e alcohol) Comments Unknown Sex and Gender Information Value Date Recorded Sex Assigned at Not on file 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 Gender Identity Not on file Sexual Orientation Not on file documented as of this encounter Plan of Treatment Not on file documented as of this encounter Procedures Procedure Name Priority Date/Time Associated Diagnosis Comments BASIC METABOLIC PANEL STAT 08/01/2016 12:50 AM CDT documented in this encounter Results * Basic metabolic panel (08/01/2016 12:50 AM CDT) Sodium 138 135 - 145 mmol/L [facility] Potassium, pl 4.6 3.3 - 4.9 mmol/L [facility] Chloride 103 97 - 110 mmol/L [facility] Comment:fixed result mapping CO2 26 22 - 32 mmol/L [facility] BUN 16 8 - 25 mg/dL [facility] Glucose 177 70 - 199 mg/dL [facility] Creatinine 0.75 0.60 - 1.10 mg/dL [facility] Calcium 9.5 8.5 - 10.3 mg/dL [facility] Anion gap 9 2 - 15 mmol/L [facility] Blood specimen (specimen) 08/01/2016 12:50 AM CDT 08/01/2016 1:02 AM CDT us Notinfile Unknown LAB BLOOD ORDERABLES Final Res ult [facility] [place] [address] documented in this encounter Visit Diagnoses Not on filedocumented in this encounter Care Teams Marine Plumber Relationship Specialty Start Date End Date Lavonne Hathaway MD [address] [place] [address] [place] [address] PCP - General 07/27/16 08/10/16 Antoinette Zhu MD [address] [address] PCP - General 08/11/16 08/15/16 Lavonne Hathaway MD [address] [place] [address] [place] [address] PCP - General 08/16/16 08/17/17 documented as of this encounter
--- OUTSIDE RECORDS SUMMARY | 2024-04-26 09:34 | XMS_ITS | Encounter Summary ---
Author Organization [facility] Healthcare Address [address] [place] [address] Care Team Providers Care Sample Washer Name Role Phone Lavonne Hathaway MD Primary Care Provider +1- [phone] Antoinette Zhu MD Primary Care Provider +1 -[phone] Lavonne Hathaway MD Primary Care Provider +1- [phone] Encounter Details Date Type Department Care Team (Late st Contact Info) Description 08/01/2016 Orders Only Cerner Lab Interim [phone] Unknown, Notinfile Social History Tobacco Use Types Packs/Day Years Used Date Smoking Tobacco: Former Alcohol Use Standard Drinks/Week Comments No 0 (1 standard drink = 0.6 oz pur e alcohol) Comments Unknown Sex and Gender Information Value Date Recorded Sex Assigned at Not on file 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 Gender Identity Not on file Sexual [...] CDT) WBC 8.87 3.80 - 9.90 K/cumm [facility] RBC 4.30 3.90 - 5.20 M/cumm [facility] Hgb 12.4 11.9 - 15.5 g/dL [facility] Hct 38.5 35.6 - 45.5 % [facility] MCV 89.5 81.3 - 96.4 fL [facility] MCH 28.8 27.1 - 33.3 pg [facility] MCHC 32.2(L) 32.3 - 35.7 g/dL [facility] RDW CV 14.1 11.1 - 14.9 % [facility] RDW SD 45.5 35.7 - 48.1 fL [facility] Plt 303 150 - 400 K/cumm [facility] MPV 9.8 9.1 - 12.3 fL [facility] NRBC 0.0 0.0 - 0.2 % [facility] NRBC abs 0.00 0.00 - 0.01 K/cumm [facility] Blood specimen (specimen) 08/01/2016 12:50 AM CDT 08/01/2016 1:10 AM CDT us Notinfile Unknown LAB BLOOD ORDERABLES Final Res ult [facility] Department [place] [address] documented in this encounter Visit Diagnoses Not on filedocumented in this encounter Care Teams Sample Washer Relationship Specialty Start Date End Date Lavonne Hathaway MD [address] [place] [address] [place] [address] PCP - General 07/27/16 08/10/16 Antoinette Zhu MD [address] [address] PCP - General 08/11/16 08/15/16 Lavonne Hathaway MD [address] [place] [address] [place] [address] PCP - General 08/16/16 08/17/17 documented as of this encounter
--- OUTSIDE RECORDS SUMMARY | 2024-04-26 09:34 | XMS_ITS | Encounter Summary ---
Author Organization [facility] Healthcare Address [address] [place] [address] Care Team Providers Care Sr. Strategic Sourcing Manager Name Role Phone Lavonne Hathaway MD Primary Care Provider +1- [phone] Antoinette Zhu MD Primary Care Provider +1 -[phone] Lavonne Hathaway MD Primary Care Provider +1- [phone] Encounter Details Date Type Department Care Team (Late st Contact Info) Description 08/01/2016 Orders Only [facility] Lab Interim [phone] Unknown, Notinfile Social History Tobacco Use Types Packs/Day Years Used Date Smoking Tobacco: Former Alcohol Use Standard Drinks/Week Comments No 0 (1 standard drink = 0.6 oz pur e alcohol) Comments Unknown Sex and Gender Information Value Date Recorded Sex Assigned at Not on file 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 Gender Identity Not on file Sexual Orientation Not on file documented as of this encounter Plan of Treatment Not on file documented as of this encounter Procedures Procedure Name Priority Date/Time Associated Diagnosis Comments PROTIME-INR STAT 08/01/2016 12:50 AM CDT documented in this encounter Results * Protime-INR (08/01/2016 12:50 AM CDT) PT 13.6 9.2 - 14.0 sec [facility] 1.19 0.81 - 1.22 [facility] Comment: Interpretive Data Inpatient therapeutic ranges* Atrial fibrillation ?2.0-3.0 INR Venous thrombo-embolism ?2.0-3.0 INR Bioprosthetic heart valve ?* Mechanical heart valve, bileaflet or tilting disk,aortic position ? 2.0-3.0 INR All other,or bileaflet or tilting disk, in mitral position ? 2.5-3.5 INR *See the pharmacy resource directory (PHRED) for an updated copy of the Tool Book at [email or web address] Current Interpretive Data was last revised 2011. Blood specimen (specimen) 08/01/2016 12:50 AM CDT 08/01/2016 1:12 AM CDT us Notinfile Unknown LAB BLOOD ORDERABLES Final Res ult Performing Organization Address City/State/[facility] [[email or web address]] Co de Phone Number [facility] One [facility] Department [place] [address] documented in this encounter Visit Diagnoses Not on filedocumented in this encounter Care Teams Sr. Strategic Sourcing Manager Relationship Specialty Start Date End Date Lavonne Hathaway MD [facility] [place] [address] PCP - General 07/27/16 08/10/16 Antoinette Zhu MD [address] [address] PCP - General 08/11/16 08/15/16 Lavonne Hathaway MD [facility] [place] [address] PCP - General 08/16/16 08/17/17 documented as of this encounter
--- OUTSIDE RECORDS SUMMARY | 2024-04-26 09:34 | XMS_ITS | Encounter Summary ---
Author Organization [facility] Healthcare Address [address] [place] [address] Care Team Providers Care Openstack Cloud Consulting Architect Name Role Phone Lavonne Hathaway MD Primary Care Provider +1- [phone] Encounter Details Date Type Department Care Team (Latest Contact Info) Description 07/31/2016 10:53 PM CDT - 08/01/2016 5:15 AM CDT Hospital Encounter [facility] Emergency Department [address] [place] [address] Alexis Hyatt MD [address] [facility] [place] [place] [id number] [place] [address] Discharge Disposition: Discharge to home or self care Social History Tobacco Use Types Packs/Day Years Used Date Smoking Tobacco: Former Alcohol Use Standard Drinks/Week Comments No 0 (1 standard drink = 0.6 oz pur e alcohol) Comments Unknown Sex and Gender Information Value Date Recorded Sex Assigned at Not on file 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 Images For Reference Purposes Only IMPRESSION: ? These images are for Reference purposes only and have not been reviewed by [facility] Radiology.? ? ? There will be no report generated by a [facility] Radiologist. Requested By: FÉLIX ARTHUR ??, MPH ? Dictated By: ?? OUTSIDE IMAGES AIRCRAFT MECHANIC ARMAMENT, ?? on Aug 04 2016 ??3:32P This document has been electronically signed by: OUTSIDE IMAGES AIRCRAFT MECHANIC ARMAMENT, ??on Aug 04 2016 ??3:32P [id number] Procedure Note Miscellaneous, Notinfile / Provider, MD Tyler - 09/16/2016 OUTSIDE IMAGES AIRCRAFT MECHANIC ARMAMENT, FINAL REPORT ACC# Date Time Exam [id number] Aug 04, 2016 14:47:00 [id number] [facility] Plain Film Reference Aug 04, 2016 14:52:00 [id number] [facility] Ultrasound Reference EXAMINATION: ? Images For Reference Purposes Only IMPRESSION: ? These images are for Reference purposes only andhave not been reviewed by [facility].? ? ? There will be no report generated by a [facility] Radiologist. Requested By: FÉLIX ARTHUR MD, MPH Dictated By: OUTSIDE IMAGES AIRCRAFT MECHANIC ARMAMENT, on Aug 04 2016 3:32P This document has been electronically signed by: OUTSIDE IMAGES AIRCRAFT MECHANIC ARMAMENT, on Aug 04 2016 3:32P [id number] us Not In File Miscellaneous IMG XR PROCEDURES Deann l Result * XR Interpretation Of Outside Films (08/04/2016 7:47 PM CDT) Anatomical Region Laterality Modality N/A Radiographic Lizeth ging 08/04/2016 7:47 PM CDT Narrative 08/04/2016 7:47 PM CDT OUTSIDE IMAGES AIRCRAFT MECHANIC ARMAMENT, FINAL REPORT ACC# ??Date Time ??Exam Aug 04, 2016 14:47:00 [id number] [facility] Plain Film Reference Aug 04, 2016 14:52:00 [id number] [facility] Ultrasound Reference EXAMINATION: ? Images For Reference Purposes Only IMPRESSION: ? These images are for Reference purposes only and have not been reviewed by [facility].? ? ? There will be no report generated by a [facility] Radiologist. Requested By: FÉLIX ARTHUR ??, MPH ? Dictated By: ?? OUTSIDE IMAGES AIRCRAFT MECHANIC ARMAMENT, ?? on Aug 04 2016 ??3:32P This document has been electronically signed by: OUTSIDE IMAGES AIRCRAFT MECHANIC ARMAMENT, ??on Aug 04 2016 ??3:32P [id number] Procedure Note Miscellaneous, Notinfile / ProviderTyler MD - 09/16/2016 OUTSIDE IMAGES AIRCRAFT MECHANIC ARMAMENT, FINAL REPORT ACC# Date Time Exam Aug 04, 2016 14:47:00 [id number] [facility] Plain Film Reference Aug 04, 2016 14:52:00 [id number] [facility] Ultrasound Reference EXAMINATION: ? Images For Reference Purposes Only IMPRESSION: ? These images are for Reference purposes only andhave not been reviewed by [facility].? ? ? There will be no report generated by a [facility] Radiologist. Requested By: FÉLIX ARTHUR MD, MPH Dictated By: OUTSIDE IMAGES AIRCRAFT MECHANIC ARMAMENT, on Aug 04 2016 3:32P This document has been electronically signed by: OUTSIDE IMAGES AIRCRAFT MECHANIC ARMAMENT, on Aug 04 2016 3:32P [id number] us Not In File Miscellaneous IMG XR [...] agrees with it. ACC# ??Date Time ??Exam [id number] Aug 04, 2016 12:38:00 [id number] [facility] Body CT Consult [id number] Aug 04, 2016 12:41:00 33011I [facility] Body CT Consult EXAMINATION: ?CHANGE CONSULT ON OUTSIDE IMAGES TO REFERENCE IMAGES IMPRESSION: ?This study was initially nominated as a consult on outside images via EDA. However, a consult was not performed because a more recent examination has been performed. Accordingly, there will be no separate report of this study generated by a [facility] Radiologist. Requested By: FÉLIX ARTHUR ??, MPH ? Dictated By: ?? KATIE ABDUL M.D. ??on Aug 04 2016 ??1:03P This document has been electronically signed by: CECELIA BETH M.D. on Aug 04 2016 ??2:10P [id number] Procedure Note Miscellaneous, Notinfile / ProviderTyler MD - 09/16/2016 Avery LAM M.D. FINAL REPORT The radiology attending physician has personally reviewed this study, and has reviewed and/or edited this written report and agrees with it. ACC# Date Time Exam [id number] Aug 04, 2016 12:38:00 [id number] [facility] Body CT Consult [id number] Aug 04, 2016 12:41:00 11526V [facility] Body CT Consult EXAMINATION: CHANGE CONSULT ON OUTSIDE IMAGES TO REFERENCE IMAGES IMPRESSION: This study was initially nominated as a consult on outside images via EDA. However, a consult was not performed because a more recent examination has been performed. Accordingly, there will be no separate report of this study generated by a [facility] Radiologist. Requested By: FÉLIX ARTHUR MD, MPH Dictated By: KATIE ABDUL M.D. on Aug 04 2016 1:03P This document has been electronically signed by: CECELIA BETH M.D. on Aug 04 2016 2:10P [id number] us Not In File Miscellaneous IMG XR [...] agrees with it. ACC# ??Date Time ??Exam [id number] Aug 04, 2016 12:38:00 01403H [facility] Body CT Consult [id number] Aug 04, 2016 12:41:00 [id number] [facility] Body CT Consult EXAMINATION: ?CHANGE CONSULT ON OUTSIDE IMAGES TO REFERENCE IMAGES IMPRESSION: ?This study was initially nominated as a consult on outside images via EDA. However, a consult was not performed because a more recent examination has been performed. Accordingly, there will be no separate report of this study generated by a [facility] Radiologist. Requested By: FÉLIX ARTHUR ??, MPH ? Dictated By: ?? KATIE ABDUL M.D. ??on Aug 04 2016 ??1:03P This document has been electronically signed by: CECELIA BETH M.D. on Aug 04 2016 ??2:10P [id number] Procedure Note Miscellaneous, Notinfile / ProviderTlyer MD - 09/16/2016 CECELIA BETH M.D. KATIE ABDUL M.D. FINAL REPORT The radiology attending physician has personally reviewed this study, and has reviewed and/or edited this written report and agrees with it. ACC# Date Time Exam [id number] Aug 04, 2016 12:38:00 60288M [facility] Body CT Consult [id number] Aug 04, 2016 12:41:00 [id number] [facility] Body CT Consult EXAMINATION: CHANGE CONSULT ON OUTSIDE IMAGES TO REFERENCE IMAGES IMPRESSION: This study was initially nominated as a consult on outside images via EDA. However, a consult was not performed because a more recent examination has been performed. Accordingly, there will be no separate report of this study generated by a [facility] Radiologist. Requested By: FÉLIX ARTHUR MD, MPH Dictated By: KATIE ABDUL M.D. on Aug 04 2016 1:03P This document has been electronically signed by: CECELIA BETH M.D. on Aug 04 2016 2:10P [id number] us Not In File Miscellaneous IMG XR [...] agrees with it. ACC# ??Date Time ??Exam [id number] Aug 01, 2016 03:24:[address] Chest with contrast EXAMINATION: ?? CT [...] ARNETT M.D. on Aug 05 2016 10:56A [id number] Procedure Note Miscellaneous, Notinfile / Provider, MD Tyler - 09/16/2016 NATE ARNETT M.D. WILLIAMS LEVY M.D. FINAL REPORT The radiology attending physician has personally reviewed this study, and has reviewed and/or edited this written report and agrees with it. [facility]# Date Time Exam [id number] Aug 01, 2016 03:24:[address] Chest with contrast EXAMINATION: CT of [...] ARNETT M.D. on Aug 05 2016 10:56A [id number] us Not In File Miscellaneous IMG CT [...] agrees with it. ACC# ??Date Time ??Exam [id number] Aug 01, 2016 01:45:00 82059 Chest 2 views Frontl ??and ??Lat EXAMINATION: [...] ARNETT M.D. on Aug 01 2016 ??9:54A [id number] Procedure Note Miscellaneous, Notinfile / Provider, MD Tyler - 09/15/2016 Avery SERNA M.D. FINAL REPORT The radiology attending physician has personally reviewed this study, and has reviewed and/or edited this written report and agrees with it. ACC# Date Time Exam [id number] Aug 01, 2016 01:45:00 77241 Chest 2 views Frontl and Lat EXAMINATION: [...] ARNETT M.D. on Aug 01 2016 9:54A [id number] us Not In File Miscellaneous IMG XR PROCEDURES Deann l Result * Glucose POC (07/31/2016 11:24 PM CDT) Glucose, POC 171 70 - 199 mg/dL [facility] Blood specimen (specimen) 07/31/2016 11:24 PM CDT 07/31/2016 11:24 PM CDT us Notinfile Unknown POINT OF CARE TEST ORDERABLES Final Result [facility] Department [place] [address] documented in this encounter Visit Diagnoses Not on filedocumented in this encounter Care Teams Openstack Cloud Consulting Architect Relationship Specialty Start Date End Date Lavonne Hathaway MD [facility] [place] [address] PCP - General 07/27/16 08/10/16 documented as of this encounter
--- OUTSIDE RECORDS SUMMARY | 2024-04-26 09:34 | XMS_ITS | Encounter Summary ---
Author Organization [facility] Healthcare Address [address] [place] [address] Care Team Providers Care Shipwright Helper Name Role Phone Lavonne Hathaway MD Primary Care Provider +1- [phone] Antoinette Zhu MD Primary Care Provider +1 -[phone] Lavonne Hathaway MD Primary Care Provider +1- [phone] Encounter Details Date Type Department Care Team (Late st Contact Info) Description 08/01/2016 Orders Only [facility] Interim [phone] Unknown, Notinfile Social History Tobacco Use Types Packs/Day Years Used Date Smoking Tobacco: Former Alcohol Use Standard Drinks/Week Comments No 0 (1 standard drink = 0.6 oz pur e alcohol) Comments Unknown Sex and Gender Information Value Date Recorded Sex Assigned at Not on file 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 One [facility] [place] [address] documented in this encounter Visit Diagnoses Not on filedocumented in this encounter Care Teams Shipwright Helper Relationship Specialty Start Date End Date Lavonne Hathaway MD [facility] [place] [address] PCP - General 07/27/16 08/10/16 Antoinette Zhu MD [address] [address] PCP - General 08/11/16 08/15/16 Lavonne Hathaway MD [address] [place] [address] [place] [address] PCP - General 08/16/16 08/17/17 documented as of this encounter
--- OUTSIDE RECORDS SUMMARY | 2024-04-26 09:34 | XMS_ITS | Encounter Summary ---
Author Organization [facility] Healthcare Address [address] [place] [address] Care Team Providers Care Embossing Tool Setter Name Role Phone Lavonne Hathaway MD Primary Care Provider +1- [phone] Antoinette Zhu MD Primary Care Provider +1 -[phone] Lavonne Hathaway MD Primary Care Provider +1- [phone] Encounter Details Date Type Department Care Team (Late st Contact Info) Description 08/01/2016 Orders Only [facility] Lab Interim [phone] Unknown, Notinfile Social History Tobacco Use Types Packs/Day Years Used Date Smoking Tobacco: Former Alcohol Use Standard Drinks/Week Comments No 0 (1 standard drink = 0.6 oz pur e alcohol) Comments Unknown Sex and Gender Information Value Date Recorded Sex Assigned at Not on file 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 Gender Identity Not on file Sexual Orientation [...] CERNER [facility] Basophil pct 0.3 % CERNER [facility] Neutrophil abs 5.11 1.70 - 6.50 K/cumm [facility] Imm gran abs 0.04 0.00 - 0.10 K/cumm [facility] Lymphocyte abs 2.60 0.80 - 3.30 K/cumm [facility] Monocyte abs 0.76 0.20 - 0.80 K/cumm [facility] Eosinophil abs 0.33 0.00 - 0.50 K/cumm C[facility]ER [facility] Basophil abs 0.03 0.00 - 0.10 K/cumm CERNER [facility] Blood specimen (specimen) 08/01/2016 12:50 AM CDT 08/01/2016 1:10 AM CDT us Notinfile Unknown LAB BLOOD ORDERABLES Final Res ult [facility] One [facility] Department [place] [address] documented in this encounter Visit Diagnoses Not on filedocumented in this encounter Care Teams Embossing Tool Setter Relationship Specialty Start Date End Date Lavonne Hathaway MD [address] [place] [address] [place] [address] PCP - General 07/27/16 08/10/16 Antoinette Zhu MD [address] [address] PCP - General 08/11/16 08/15/16 Lavonne Hathaway MD [address] [place] [address] [place] [address] PCP - General 08/16/16 08/17/17 documented as of this encounter
--- OUTSIDE RECORDS SUMMARY | 2024-04-26 09:34 | XMS_ITS | Encounter Summary ---
Author Organization [facility] Healthcare Address [address] [place] [address] Care Team Providers Care Assistant Clinical Nurse Manager Name Role Phone Lavonne Hathaway MD Primary Care Provider +1- [phone] Encounter Details Date Type Department Care Team (Latest Contact Info) Description 08/19/2016 1:36 PM CDT - 08/19/2016 11:59 PM CDT Hospital Encounter [facility] OP INTERIM [phone] Khris Arthur MD [address] [facility] [address] [place] [address] Discharge Disposition: Discharge to home or self care Social History Tobacco Use Types Packs/Day Years Used Date Smoking Tobacco: Former Alcohol Use Standard Drinks/Week Comments No 0 (1 standard drink = 0.6 oz pur e alcohol) Comments Unknown Sex and Gender Information Value Date Recorded Sex Assigned at Not on file 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 ACC# ??Date Time ??Exam [id number] Aug 19, 2016 14:27:00 [facility] [address] Diag Mamm, inc CAD, unilat L ?? Technologist(s): Carla Harris; ; [id number] Aug 19, 2016 15:39:00 [facility] [address] Breast US unilateral, ltd L ACC# ??Date Time ??Exam [id number] Aug 19, 2016 14:27:00 [facility] [address] Diag Mamm, inc CAD, unilat L ?? Technologist(s): Carla Harris; ; [id number] Aug 19, 2016 15:39:00 [facility] [address] Breast US unilateral, ltd L EXAMINATION: ?? [...] SARABIA M.D. on Aug 19 2016 ??4:20P [id number] Procedure Note Miscellaneous, Not In File / Provider, MD Tyler - 09/17/2016 ANTHONY SARABIA M.D. JUDY RINCON M.D. FINAL REPORT The radiology attending physician has personally reviewed this study, and has reviewed and/or edited this written report and agrees with it. [facility]# Date Time Exam [id number] Aug 19, 2016 14:27:00 [facility] [address] Diag Mamm, inc CAD, unilat L Technologist(s): Carla Harris; ; [id number] Aug 19, 2016 15:39:00 [facility] [address] Breast US unilateral, ltd L ACC# Date Time Exam [id number] Aug 19, 2016 14:27:00 [facility] [address] Diag Mamm, inc CAD, unilat L Technologist(s): Carla Harris; ; [id number] Aug 19, 2016 15:39:00 [facility] [address] Breast US unilateral, ltd L EXAMINATION: LEFT [...] SARABIA M.D. on Aug 19 2016 4:20P [id number] us Not In File Miscellaneous IMG US [...] agrees with it. ACC# ??Date Time ??Exam [id number] Aug 19, 2016 14:27:00 [facility] [address] Diag Mamm, inc CAD, unilat L ?? Technologist(s): Carla Harris; ; [id number] Aug 19, 2016 15:39:00 [facility] [address] Breast US unilateral, ltd L ACC# ??Date Time ??Exam [id number] Aug 19, 2016 14:27:00 [facility] [address] Diag Mamm, inc CAD, unilat L ?? Technologist(s): Carla Harris; ; [id number] Aug 19, 2016 15:39:00 [facility] [address] Breast US unilateral, ltd L EXAMINATION: ?? [...] SARABIA M.D. on Aug 19 2016 ??4:20P [id number] Procedure Note Miscellaneous, Not In File / Provider, MD Tyler - 09/17/2016 ANTHONY SARABIA M.D. JUDY RINCON M.D. FINAL REPORT The radiology attending physician has personally reviewed this study, and has reviewed and/or edited this written report and agrees with it. ACC# Date Time Exam [id number] Aug 19, 2016 14:27:00 [facility] [address] Diag Mamm, inc CAD, unilat L Technologist(s): Carla Harris; ; [id number] Aug 19, 2016 15:39:00 C 13410 Breast US unilateral, ltd L ACC# Date Time Exam [id number] Aug 19, 2016 14:27:00 C 92[address] Diag Mamm, inc CAD, unilat L Technologist(s): Carla Harris; ; [id number] Aug 19, 2016 15:39:00 C 23110 Breast US unilateral, ltd L EXAMINATION: LEFT [...] SARABIA M.D. on Aug 19 2016 4:20P [id number] us Not In File Miscellaneous IMG MAMMO PROCEDURES F inal Result documented in this encounter Visit Diagnoses Not on filedocumented in this encounter Care Teams Assistant Clinical Nurse Manager Relationship Specialty Start Date End Date Lavonne Hathaway MD [facility] [place] [place] [address] PCP - General 08/16/16 08/17/17 documented as of this encounter
--- OUTSIDE RECORDS SUMMARY | 2024-04-26 09:34 | XMS_ITS | Encounter Summary ---
Author Organization [facility] Healthcare Address [address] [place] [address] Care Team Providers Care Guyline Operator Name Role Phone Lavonne Hathaway MD Primary Care Provider +1- [phone] Encounter Details Date Type Department Care Team (Late st Contact Info) Description 09/10/2016 Orders Only [facility] Interim [phone] Unknown, Notinfile Social History Tobacco Use Types Packs/Day Years Used Date Smoking Tobacco: Former Alcohol Use Standard Drinks/Week Comments No 0 (1 standard drink = 0.6 oz pur e alcohol) Comments Unknown Sex and Gender Information Value Date Recorded Sex Assigned at Not on file 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 Gender Identity Not on file Sexual [...] Peptide (BNP) 31 0 - 100 pg/mL [facility] Blood specimen (specimen) 09/10/2016 9:07 PM CDT 09/11/2016 12:54 AM CDT us Notinfile Unknown LAB BLOOD ORDERABLES Final Res ult [facility] [address] [address] Department of Laboratories [place], [place] [id number] documented in this encounter Visit Diagnoses Not on filedocumented in this encounter Care Teams Guyline Operator Relationship Specialty Start Date End Date Lavonne Hathaway MD [facility] [place], [place] [address] PCP - General 08/16/16 08/17/17 documented as of this encounter
--- OUTSIDE RECORDS SUMMARY | 2024-04-26 09:34 | XMS_ITS | Encounter Summary ---
Author Organization [facility] Healthcare Address [address] [place] [address] Care Team Providers Care Meat Blender Name Role Phone Lavonne Hathaway MD Primary Care Provider +1- [phone] Encounter Details Date Type Department Care Team (Late st Contact Info) Description 09/10/2016 Orders Only [facility] Lab Interim [phone] [place] [address] [facility] [address] [place] [address] Social History Tobacco Use Types Packs/Day Years Used Date Smoking Tobacco: Former Alcohol Use Standard Drinks/Week Comments No 0 (1 standard drink = 0.6 oz pur e alcohol) Comments Unknown Sex and Gender Information Value Date Recorded Sex Assigned at Not on file 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 Gender Identity Not on file Sexual [...] MARY JANE ARNOLD Comment:Testing performed by : [facility], [address] [place]., [address] Urine/Blood 09/10/2016 9:07 PM CDT 09/11/2016 4:43 AM CDT Narrative [facility]NOLD - 09/12/2016 8:12 AM CDT us Rosio Horton MD LAB MICROBIOLOGY - GENERAL OR DERABLES Final Result [facility] [address] [address] Department [place] [address] documented in this encounter Visit Diagnoses Not on filedocumented in this encounter Care Teams Meat Blender Relationship Specialty Start Date End Date Lavonne Hathaway MD [facility] [place] [address] PCP - General 08/16/16 08/17/17 documented as of this encounter
--- OUTSIDE RECORDS SUMMARY | 2024-04-26 09:35 | XMS_ITS | Encounter Summary ---
Author Organization [facility] Care Team Providers Care Knifer Up Name Role Phone Antoinette Zhu MD Primary Care Provider [phone] Encounter Details Date Type Department Care Team (Latest Contact Info) Description 02/14/2015 7:52 AM CDT - 02/14/2015 7:50 PM CDT Hospital Encounter [facility] Gastro-esophageal reflux disease without esophagitis; Other [...] on file Legal Sex Female 12:24 AM WATER RESOURCE CONSULTANT Gender Identity Not on file Sexual [...] AM CDT Patient: Mohsen Salazar Reg No: [id number] H #: [id number] Admit Dt.: 02/13/2015 : 1955 Room No: Attending: Hannah Youngblood M.D. Dictating: Hannah Youngblood M.D. ADMISSION HISTORY PHYSICAL Admission Diagnosis (es): ____ Chief Complaint: Shortness of breath. History of Present Illness: Ms Salazar is a 59-year-old female with past medical history of breast cancer, status post mastectomy, currently on radiation therapy as well as diabetes and hypertension, presents to [facility] for further evaluation of shortness of breath. [...] Social History: The patient currently lives in [place]. She did smoke tobacco products, but quit [...] strength in bilateral upper extremities with normal aemt bilaterally. She was able to move her [...] medication and monitor. Unreviewed Avery Whitehead Ma/verito #[id number] Editing MT: TD: 02/14/2015 07:27:18 cc: Hannah Youngblood M.D. * Provider, MD Tyler - 02/13/2015 12:00 AM CDT Patient: MOHSEN SALAZAR Reg No: [id number] [facility] #: [id number] Admit Dt.: 02/13/2015 : 1955 Room No: Attending: Hannah Youngblood M.D. Dictating: Hannah Youngblood M.D. ADMISSION HISTORY AND PHYSICAL Shortness of breath. History of Present Illness: Ms Salazar is a 59-year-old female with past medical history of breast cancer, status post mastectomy, currently on radiation therapy as well as diabetes and hypertension, who presents to [facility] for further evaluation of shortness of breath. [...] Social History: The patient currently lives in [place]. She did smoke tobacco products, but quit [...] strength in bilateral upper extremities with normal aemt bilaterally. She was able to move her [...] Hannah Taveras MD On 03/13/2015 07:35 AM WATER RESOURCE CONSULTANT Avery Whitehead:verito #[id number] Editing MT: verito TD: 02/14/2015 07:27 AM [...] BLOOD ORDERABLES Final Result Performing Organization Address [facility] Co de Phone Number HISTORICAL RESULTS [...] agrees with it. ACC# ??Date Time ??Exam [id number] Feb 14, 2015 04:50:[id number] Chest with contrast EXAMINATION: ?? CT [...] WATERS M.D. on Feb 14 2015 ??1:40P [id number] Procedure Note Provider, MD Tyler - 08/12/2016 Avery BEAUCHAMPLEWICZ, M.D. FINAL REPORT The radiology attending physician has personally reviewed this study, and has reviewed and/or edited this written report and agrees with it. [facility]# Date Time Exam [id number] Feb 14, 2015 04:50:[id number] Chest with contrast EXAMINATION: CT Chest [...] WATERS M.D. on Feb 14 2015 1:40P [id number] us Historical Provider MD GARCIA CT PROCEDURES Final R esult * Serum troponin I (02/14/2015 3:05 AM CDT) Troponin I <0.03 0.00 - 0.03 ng/ml HISTORICAL RESULTS Comment: Interpretive Data Serial determinations are recommended for the diagnosis of myocardial infarction (Third Roslyn Definition of Myocardial Infarction. ??J Am Wang Cardiol 2012;60:1581-98). Current interpretive data was last revised on 13. Serum 02/14/2015 3:05 AM CDT Result [facility] Idalia Lu MD LAB BLOOD ORDERABLES Deann l Result Performing Organization Address [facility] de Phone Number HISTORICAL RESULTS * (ABNORMAL) Serum thyroid-stimulating hormone (TSH) (02/14/2015 12:21 AM CDT) TSH 0.03(L) 0.35 - 5.50 mcIUnits/ ml HISTORICAL RESULTS Comment: Interpretive Data Hyperthyroid: ??<0.1 mcIUnit/mL Hypothyroid: ??>12.0 mcIUnit/mL Current interpretive data was last revised on 00. Serum 02/14/2015 12:2 1 AM CDT Idalia Lu MD LAB BLOOD ORDERABLES Deann l Result Performing Organization Address [facility] Phone Number HISTORICAL RESULTS * Serum thyroxine (T4), free (02/14/2015 12:21 AM CDT) Free T4 1.20 0.90 - 1.80 ng/dl HISTORICAL RESULTS Serum 02/14/2015 12:2 1 AM CDT Idalia Lu MD LAB BLOOD ORDERABLES Deann l Result Performing Organization Address [facility] Phone Number HISTORICAL RESULTS * Plasma partial [...] ORDERABLES Deann l Result Performing Organization Address [facility] de Phone Number HISTORICAL RESULTS [...] ORDERABLES Deann l Result Performing Organization Address [facility] de Phone Number HISTORICAL RESULTS * Serum troponin I (02/14/2015 12:21 AM CDT) Troponin I <0.03 0.00 - 0.03 ng/ml HISTORICAL RESULTS Comment: Interpretive Data Serial determinations are recommended for the diagnosis of myocardial infarction (Third Roslyn Definition of Myocardial Infarction. ??J Am Wang Cardiol 2012;60:1581-98). Current interpretive data was last revised on 13. Serum 02/14/2015 12:2 1 AM CDT Idalia Lu MD LAB BLOOD ORDERABLES Deann l Result Performing Organization Address [facility] Co de Phone Number HISTORICAL RESULTS [...] updated copy of the Tool Book at [email or web address] Current Interpretive Data was last revised 2011. [...] ORDERABLES Deann l Result Performing Organization Address [facility] de Phone Number HISTORICAL RESULTS * Blood B-type natriuretic peptide (BNP) (02/14/2015 12:21 AM CDT) BNP <5 0 - 100 pg/ml HISTORICAL RESULTS Blood specimen (specimen) 02/14/2015 12:21 AM CDT Idalia Lu MD LAB BLOOD ORDERABLES Deann l Result Performing Organization Address [facility] Co de Phone Number HISTORICAL RESULTS [...] agrees with it. ACC# ??Date Time ??Exam [id number] Feb 13, 2015 23:53:00 [id number] Chest 2 views Frontl & Lat EXAMINATION: [...] WATERS M.D. on Feb 14 2015 ??1:20P [id number] Procedure Note Provider, MD Tyler - 08/12/2016 KAMERON WATERS M.D. DORY ENAMORADO M.D. FINAL REPORT The radiology attending physician has personally reviewed this study, and has reviewed and/or edited this written report and agrees with it. ACC# Date Time Exam [id number] Feb 13, 2015 23:53:00 [id number] Chest 2 views Frontl & Lat EXAMINATION: [...] WATERS M.D. on Feb 14 2015 1:20P [id number] Historical Provider IMG XR PROCEDURES Final R [...] kidney documented in this encounter Care Teams Knifer Up Relationship Specialty Start Date End Date Antoinette Zhu MD [address] [address] PCP - General 08/01/13 07/26/16 documented as of this encounter
--- OUTSIDE RECORDS SUMMARY | 2024-04-26 09:35 | XMS_ITS | Encounter Summary ---
Author Organization [facility] Care Team Providers Care Service Supervisor Name Role Phone Antoinette Zhu MD Primary Care Provider [phone] Encounter Details Date Type Department Care Team (Late st Contact Info) Description 06/11/2015 - 06/11/2015 11:59 PM RETAIL CLIENT SOLUTIONS ANALYST Hospital [facility], [place] [address] [facility] [address] [place] [address] Social History Tobacco Use Types Packs/Day Years Used Date Smoking Tobacco: Former Alcohol Use Standard Drinks/Week Comments No 0 (1 standard drink = 0.6 oz pur e alcohol) Comments Unknown Sex and Gender Information Value Date Recorded Sex Assigned at Not on file Legal Sex Female 12:24 AM RETAIL CLIENT SOLUTIONS ANALYST Gender Identity Not on file Sexual [...] filedocumented in this encounter Care Teams Service Supervisor Relationship Specialty Start Date End Date Antoinette Zhu MD [address] [address] PCP - General 08/01/13 07/26/16 documented as of this encounter
--- OUTSIDE RECORDS SUMMARY | 2024-04-26 09:35 | XMS_ITS | Encounter Summary ---
Author Organization [facility] Facility Care Team Providers Care Cupola Patcher Name Role Phone Antoinette Zhu MD Primary Care Provider [phone] Encounter Details Date Type Department Care Team (Latest Contact Info) Description 04/05/2015 1:42 AM TRIM SETTER HELPER - 04/05/2015 3:05 PM [facility] Hospital Encounter [facility]INCONV Dehydration; Malignant neoplasm of female breast [...] file Legal Sex Female 12:24 AM TRIM SETTER HELPER Gender Identity Not on file Sexual Orientation Not on file documented as of this encounter Last Filed Vital Signs Vital Sign Reading Time Taken Comments Blood Pressure 113/57 04/05/2015 11:46 AM TRIM SETTER HELPER Pulse 76 04/05/2015 11:46 AM TRIM SETTER HELPER Temperature - - Respiratory Rate - - Oxygen Saturation 97% 04/05/2015 11: 46 AM TRIM SETTER HELPER Inhaled Oxygen Concentration - - Weight 129.3 kg (284 lb 15.8 oz) 04/05/2015 2:43 AM TRIM SETTER HELPER Height 154.9 cm (5' 1 ) 04/05/2015 2:43 AM TRIM SETTER HELPER Body Mass Index 53.85 04/05/2015 2:43 AM TRIM SETTER HELPER documented in this encounter Medications at Time [...] GLUCOSE, POC Routine 04/05/2015 12 :04 PM TRIM SETTER HELPER BLOOD GLUCOSE, POC Routine 04/05/2015 8: 23 AM TRIM SETTER HELPER SERUM TROPONIN I Routine 04/05/2015 2:59 AM TRIM SETTER HELPER PLASMA BASIC METABOLIC PANEL Routine 04/05/2015 2:59 AM TRIM SETTER HELPER ELECTROCARDIOGRAPHY (ECG) 04/05/2015 DISCHARGE LABORATORY CUMULATIVE REPORT 04/05/2015 BLOOD CULTURE, CDR Routine 04/04/2015 11 :06 PM TRIM SETTER HELPER BLOOD CULTURE, CDR Routine 04/04/2015 11 :06 PM TRIM SETTER HELPER URINE MICROSCOPY Routine 04/04/2015 11:0 6 PM TRIM SETTER HELPER SERUM MAGNESIUM Routine 04/04/2015 11:06 PM TRIM SETTER HELPER PLASMA PHOSPHORUS Routine 04/04/2015 11: 06 PM TRIM SETTER HELPER PLASMA HEPATIC FUNCTION PANEL Routine 04/04/2015 11:06 PM TRIM SETTER HELPER BLOOD POTASSIUM, MIXED VENOUS Routine 04/04/2015 11:06 PM TRIM SETTER HELPER URINALYSIS Routine 04/04/2015 11:06 PM TRIM SETTER HELPER CHEST RADIOGRAPHY, FRONTAL (AP), LATERAL Routine 04/04/2015 9:[address] CHEST W CONTRAST Routine 04/04/2015 9 :[address] HEAD WO CONTRAST Routine 04/04/2015 9 :48 PM TRIM SETTER HELPER SERUM TROPONIN I Routine 04/04/2015 7:34 PM TRIM SETTER HELPER SERUM THYROXINE (T4), FREE Routine 04/04 7:34 PM TRIM SETTER HELPER SERUM THYROID-STIMULATING HORMONE (TSH) Routine 04/04/2015 7:34 PM TRIM SETTER HELPER PLASMA PROTHROMBIN TIME (PT) Routine 04/04/2015 7:34 PM TRIM SETTER HELPER PLASMA PARTIAL THROMBOPLASTIN TIME (PTT) Routine 04/04/2015 7:34 PM TRIM SETTER HELPER PLASMA BASIC METABOLIC PANEL Routine 04/04/2015 7:34 PM TRIM SETTER HELPER BLOOD HEMOGLOBIN A1C Routine 04/04/2015 7:34 PM TRIM SETTER HELPER BLOOD B-TYPE NATRIURETIC PEPTIDE (BNP) Routine 04/04/2015 7:34 PM TRIM SETTER HELPER BLOOD CELL COUNT (CBC) Routine 5 7:34 PM TRIM SETTER HELPER BLOOD GLUCOSE, POC Routine 04/04/2015 6: 54 PM TRIM SETTER HELPER ALL MICROBIOLOGY REPORT SECTION Routine 04/04/2015 12:00 AM TRIM SETTER HELPER ALL MICROBIOLOGY REPORT SECTION Routine 04/04/2015 12:00 AM TRIM SETTER HELPER documented in this encounter Results * Blood glucose, POC (04/05/2015 12:04 PM TRIM SETTER HELPER) Glucose, POC, bld 116 70 - 199 mg/dl HISTORICAL RESULTS Blood specimen (specimen) 04/05/2015 12:04 PM TRIM SETTER HELPER us Kiana Pedro MD LAB BLOOD ORDERABLES Final Resul t Performing Organization Address City/[facility] Co de Phone Number HISTORICAL RESULTS * Blood glucose, POC (04/05/2015 8:23 AM TRIM SETTER HELPER) Glucose, POC, bld 128 70 - 199 mg/dl HISTORICAL RESULTS Blood specimen (specimen) 04/05/2015 8:23 AM TRIM SETTER HELPER us Kiana Pedro MD LAB BLOOD ORDERABLES Final Resul t Performing Organization Address City/State/[facility] Co de Phone Number HISTORICAL RESULTS * (ABNORMAL) Plasma basic metabolic panel (04/05/2015 2:59 AM TRIM SETTER HELPER) Sodium 139 135 - 145 mmol/L HISTORICAL [...] mg/dl HISTORICAL RESULTS Plasma 04/05/2015 2:59 AM TRIM SETTER HELPER Osiel Harrison MD LAB BLOOD ORDERABLES F inal Result Performing Organization Address [facility] de Phone Number HISTORICAL RESULTS * Serum troponin I (04/05/2015 2:59 AM TRIM SETTER HELPER) Pathologist [facility] Troponin I <0.03 0.00 - 0.03 ng/ml HISTORICAL RESULTS Comment: Interpretive Data Serial determinations are recommended for the diagnosis of myocardial infarction (Third [place] Definition of Myocardial Infarction. ??J Am Wang Cardiol 2012;60:1581-98). Current interpretive data was last revised on 13. Serum 04/05/2015 2:59 AM TRIM SETTER HELPER Result [facility] Semaj Goldstein MD LAB BLOOD ORDERABLES F inal Result Performing Organization Address [facility] Phone Number HISTORICAL RESULTS * DISCHARGE LABORATORY CUMULATIVE REPORT (04/05/2015) Narrative 04/05/2015 Ordered by an unspecified provider. Historical Provider LAB BLOOD ORDERABLES Deann l Result * ELECTROCARDIOGRAPHY (ECG) (04/05/2015) Narrative 04/05/2015 Ordered by an unspecified provider. Result [facility] Historical Provider ECG ORDERABLES Final Res ult * Blood potassium, mixed venous (04/04/2015 11:06 PM TRIM SETTER HELPER) Pathologist [facility] Potassium, bld 4.5 3.3 - 4.9 mmol/L HISTORICAL RESULTS Mixed venous blood 04/04/2015 11:06 PM TRIM SETTER HELPER Result [facility] Semaj Goldstein MD LAB BLOOD ORDERABLES F inal Result Performing Organization Address [facility] de Phone Number HISTORICAL RESULTS * (ABNORMAL) Plasma hepatic function panel (04/04/2015 11:06 PM TRIM SETTER HELPER) Pathologist [facility] Protein, pl 7.4 6.5 - 8.5 g/dl [...] HISTORICAL RESULTS Plasma 04/04/2015 11:0 6 PM TRIM SETTER HELPER Semaj Goldstein MD LAB BLOOD ORDERABLES F inal Result Performing Organization Address [facility] de Phone Number HISTORICAL RESULTS * (ABNORMAL) Plasma phosphorus (04/04/2015 11:06 PM TRIM SETTER HELPER) Phosphorus, pl 4.4(H) 2.3 - 4.3 mg/dl HISTORICAL RESULTS Plasma 04/04/2015 11:0 6 PM TRIM SETTER HELPER Semaj Goldstein MD LAB BLOOD ORDERABLES F inal Result Performing Organization Address [facility] de Phone Number HISTORICAL RESULTS * Serum magnesium (04/04/2015 11:06 PM TRIM SETTER HELPER) Magnesium 1.8 1.4 - 2.5 mg/dl HISTORICAL RESULTS Serum 04/04/2015 11:0 6 PM TRIM SETTER HELPER Semaj Goldstein MD LAB BLOOD ORDERABLES F inal Result Performing Organization Address [facility] de Phone Number HISTORICAL RESULTS * (ABNORMAL) Urinalysis (04/04/2015 11:06 PM TRIM SETTER HELPER) Color, ur Yellow Yellow HISTORICAL RESULTS Clarity, [...] HISTORICAL RESULTS Urine 04/04/2015 11:0 6 PM TRIM SETTER HELPER Semaj Goldstein MD LAB BLOOD ORDERABLES F inal Result Performing Organization Address City/[facility] Co de Phone Number HISTORICAL RESULTS * (ABNORMAL) Urine microscopy (04/04/2015 11:06 PM TRIM SETTER HELPER) RBC, ur 7(H) 0 - 3 /hpf HISTORICA L RESULTS WBC, ur 4 0 - 5 /hpf HISTORICA L RESULTS Bacteria, ur Negative Trace HISTORI JOY RESULTS Epithelial cells, renal, ur 0 0 - 0 /hpf HISTORICAL RESULTS Epithelial cells, squamous, ur 19 /lpf HISTORICAL RESULTS Mucus, ur Small /hpf HISTORICAL RESULTS Urine 04/04/2015 11:0 6 PM TRIM SETTER HELPER Semaj Goldstein MD LAB BLOOD ORDERABLES F inal Result Performing Organization Address [facility] de Phone Number HISTORICAL RESULTS * Blood culture (04/04/2015 11:06 PM TRIM SETTER HELPER) Blood specimen (specimen) (Hand, right) 04/04/2015 11:06 PM TRIM SETTER HELPER 04/04/2015 11:38 PM TRIM SETTER HELPER Impressions HISTORICAL RESULTS - 04/10/2015 5:55 AM TRIM SETTER HELPER Blood cultures are incubated for five days on a continuously monitored blood culture system. ??The first report of a negative culture is issued within 24 hours of receipt of the specimen in the laboratory. ??Positive culture results are reported as soon as they are detected. ??For blood cultures with gram-positive cocci, a rapid molecular test for organism identification may be performed using the [employer] Nanosphere Gram Positive Blood Culture Assay. ??The Nanosphere assay detects microbial DNA in positive blood culture broth via hybridization of target DNA to capture oligonucleotides on a microarray. ??This assay has been cleared by the [place] Food and Drug Administration and its performance characteristics have been verified by the [facility]. Current Interpretive Data was last revised on 2013. Narrative HISTORICAL RESULTS - 04/10/2015 5:55 AM TRIM SETTER HELPER No growth Historical Provider MD LAB MICROBIOLOGY - GENERA L ORDERABLES Final Result Performing Organization Address City/[facility] Co de Phone Number HISTORICAL RESULTS * Blood culture (04/04/2015 11:06 PM TRIM SETTER HELPER) Blood specimen (specimen) (Wrist, right) 04/04/2015 11:06 PM TRIM SETTER HELPER 04/04/2015 11:38 PM TRIM SETTER HELPER Impressions HISTORICAL RESULTS - 04/10/2015 5:55 AM TRIM SETTER HELPER Blood cultures are incubated for five days on a continuously monitored blood culture system. ??The first report of a negative culture is issued within 24 hours of receipt of the specimen in the laboratory. ??Positive culture results are reported as soon as they are detected. ??For blood cultures with gram-positive cocci, a rapid molecular test for organism identification may be performed using the [employer] Nanosphere Gram Positive Blood Culture Assay. ??The Nanosphere assay detects microbial DNA in positive blood culture broth via hybridization of target DNA to capture oligonucleotides on a microarray. ??This assay has been cleared by the [place] Food and Drug Administration and its performance characteristics have been verified by the [facility]. Current Interpretive Data was last revised on 2013. Narrative HISTORICAL RESULTS - 04/10/2015 5:55 AM TRIM SETTER HELPER No growth Historical Provider MD LAB MICROBIOLOGY - GENERA L ORDERABLES Final Result Performing Organization Address City/[facility] Co de Phone Number HISTORICAL RESULTS * CHEST RADIOGRAPHY, FRONTAL (AP), LATERAL (04/04/2015 9:53 PM TRIM SETTER HELPER) Anatomical Region Laterality Modality N/A Radiographic Lizeth ging 04/04/2015 9:53 PM TRIM SETTER HELPER Narrative 04/06/2015 7:13 AM TRIM SETTER HELPER CIELO DUVAL M.D. GODWIN LYNCH M.D. FINAL REPORT The radiology attending physician has personally reviewed this study, and has reviewed and/or edited this written report and agrees with it. ACC# ??Date Time ??Exam [id number] Apr 04, 2015 21:53:00 [id number] Chest 2 views Frontl & Lat EXAMINATION: [...] DUVAL M.D. on Apr 06 2015 ??7:11A [id number] Procedure Note Provider, Tyler, - 08/12/2016 CIELO DUVAL M.D. GODWIN LYNCH M.D. FINAL REPORT The radiology attending physician has personally reviewed this study, and has reviewed and/or edited this written report and agrees with it. ACC# Date Time Exam [id number] Apr 04, 2015 21:53:00 [id number] Chest 2 views Frontl & Lat EXAMINATION: [...] DUVAL M.D. on Apr 06 2015 7:11A [id number] us Historical Provider MD GARCIA XR PROCEDURES Final R esult * CT Head WO Contrast (04/04/2015 9:48 PM TRIM SETTER HELPER) Anatomical Region Laterality Modality Head and Neck N/A Computed Tomogra phy 04/04/2015 9:48 PM TRIM SETTER HELPER Narrative 04/05/2015 10:53 AM TRIM SETTER HELPER ARTURO MILLS M.D. CLINTON MELTON M.D. FINAL REPORT The radiology attending physician has personally reviewed this study, and has reviewed and/or edited this written report and agrees with it. ACC# ??Date Time ??Exam [id number] Apr 04, 2015 21:48:[id number] Head or Brain w/o cont EXAMINATION: [...] MILLS M.D. on Apr 05 2015 10:52A [id number] Procedure Note Provider, MD Tyler - 08/12/2016 ARTURO MILLS M.D. CLINTON MELTON M.D. FINAL REPORT The radiology attending physician has personally reviewed this study, and has reviewed and/or edited this written report and agrees with it. ACC# Date Time Exam [id number] Apr 04, 2015 21:48:[id number] Head or Brain w/o cont EXAMINATION: [...] MILLS M.D. on Apr 05 2015 10:52A [id number] Historical Provider MD GARCIA CT PROCEDURES Final R esult * CT Chest W Contrast (04/04/2015 9:48 PM TRIM SETTER HELPER) Anatomical Region Laterality Modality Body N/A Computed Tomogra phy 04/04/2015 9:48 PM TRIM SETTER HELPER Narrative 04/06/2015 7:13 AM TRIM SETTER HELPER CIELO DUVAL M.D. NATE BOLANOS M.D. FINAL REPORT The radiology attending physician has personally reviewed this study, and has reviewed and/or edited this written report and agrees with it. ACC# ??Date Time ??Exam [id number] Apr 04, 2015 21:48:[id number] Chest with contrast EXAMINATION: ?? CT [...] DUVAL M.D. on Apr 06 2015 ??7:11A [id number] Procedure Note Provider, MD Tyler - 08/12/2016 CIELO DUVAL M.D. NATE BOLANOS M.D. FINAL REPORT The radiology attending physician has personally reviewed this study, and has reviewed and/or edited this written report and agrees with it. ACC# Date Time Exam [id number] Apr 04, 2015 21:48:[id number] Chest with contrast EXAMINATION: CT of [...] DUVAL M.D. on Apr 06 2015 7:11A [id number] Historical Provider MD GARCIA CT PROCEDURES Final R esult * (ABNORMAL) Serum thyroid-stimulating hormone (TSH) (04/04/2015 7:34 PM TRIM SETTER HELPER) TSH 0.02(L) 0.35 - 5.50 mcIUnits/ ml HISTORICAL RESULTS Comment: Interpretive Data Hyperthyroid: ??<0.1 mcIUnit/mL Hypothyroid: ??>12.0 mcIUnit/mL Current interpretive data was last revised on 00. Serum 04/04/2015 7:34 PM TRIM SETTER HELPER Semaj Goldstein MD LAB BLOOD ORDERABLES F inal Result Performing Organization Address [facility] de Phone Number HISTORICAL RESULTS * Plasma partial thromboplastin time (PTT) (04/04/2015 7:34 PM TRIM SETTER HELPER) APTT 33.4 25.0 - 37.0 seconds HISTORICAL RESULTS Comment: Interpretive Data Therapeutic heparin range:60.0 - 94.0 sec based on correlation with therapeutic heparin activity range of 0.3 -0.7 Units/mL. Current interpretive data was last revised on 2011. Plasma 04/04/2015 7:34 PM TRIM SETTER HELPER Semaj Goldstein MD LAB BLOOD ORDERABLES F inal Result Performing Organization Address [facility] Co de Phone Number HISTORICAL RESULTS * (ABNORMAL) Plasma basic metabolic panel (04/04/2015 7:34 PM TRIM SETTER HELPER) Sodium 137 135 - 145 mmol/L HISTORICAL [...] mg/dl HISTORICAL RESULTS Plasma 04/04/2015 7:34 PM TRIM SETTER HELPER Semaj Goldstein MD LAB BLOOD ORDERABLES F inal Result Performing Organization Address [facility] de Phone Number HISTORICAL RESULTS * Serum troponin I (04/04/2015 7:34 PM TRIM SETTER HELPER) Troponin I <0.03 0.00 - 0.03 ng/ml HISTORICAL RESULTS Comment: Interpretive Data Serial determinations are recommended for the diagnosis of myocardial infarction (Third [place] Definition of Myocardial Infarction. ??J Am Wang Cardiol 2012;60:1581-98). Current interpretive data was last revised on 13. Serum 04/04/2015 7:34 PM TRIM SETTER HELPER Semaj Goldstein MD LAB BLOOD ORDERABLES F inal Result Performing Organization Address [facility] de Phone Number HISTORICAL RESULTS * (ABNORMAL) Plasma prothrombin time (PT) (04/04/2015 7:34 PM TRIM SETTER HELPER) Prothrombin time (PT) 14.3(H) 9.2 - 13.0 [...] of the Tool Book at [email or web address] Current Interpretive Data was last revised 2011. Plasma 04/04/2015 7:34 PM TRIM SETTER HELPER Semaj Goldstein MD LAB BLOOD ORDERABLES F inal Result Performing Organization Address City/[facility] de Phone Number HISTORICAL RESULTS * Serum thyroxine (T4), free (04/04/2015 7:34 PM TRIM SETTER HELPER) Free T4 1.21 0.90 - 1.80 ng/dl HISTORICAL RESULTS Serum 04/04/2015 7:34 PM TRIM SETTER HELPER Semaj Goldstein MD LAB BLOOD ORDERABLES F inal Result Performing Organization Address [facility] de Phone Number HISTORICAL RESULTS * (ABNORMAL) Blood cell count (CBC) (04/04/2015 7:34 PM TRIM SETTER HELPER) WBC 8.9 3.8 - 9.8 K/cumm HISTORICAL [...] RESULTS Blood specimen (specimen) 04/04/2015 7:34 PM TRIM SETTER HELPER Semaj Goldstein MD LAB BLOOD ORDERABLES F inal Result Performing Organization Address City/[facility] Co de Phone Number HISTORICAL RESULTS * (ABNORMAL) Blood hemoglobin A1C (04/04/2015 7:34 PM TRIM SETTER HELPER) Hgb A1C 6.6(H) 4.0 - 6.0 % HISTORICAL RESULTS Estimated average glucose 143 mg/dl HISTORICAL RESULTS Comment: The ADA recommends reporting an estimated Average Glucose (eAG) with all Hemoglobin A1c results using the equation derived from a study of 507 normal and diabetic adults. ??Minority populations were underrepresented and children were not included. ??(Diabetes Care 31:9846-0754, 2008). ??The eAG is not equivalent to a fasting glucose. Blood specimen (specimen) 04/04/2015 7:34 PM TRIM SETTER HELPER Semaj Goldstein MD LAB BLOOD ORDERABLES F inal Result Performing Organization Address City/[facility] Co de Phone Number HISTORICAL RESULTS * Blood B-type natriuretic peptide (BNP) (04/04/2015 7:34 PM TRIM SETTER HELPER) BNP <5 0 - 100 pg/ml HISTORICAL RESULTS Blood specimen (specimen) 04/04/2015 7:34 PM TRIM SETTER HELPER Semaj Goldstein MD LAB BLOOD ORDERABLES F inal Result HISTORICAL RESULTS * Blood glucose, POC (04/04/2015 6:54 PM TRIM SETTER HELPER) Glucose, POC, bld 147 70 - 199 mg/dl HISTORICAL RESULTS Blood specimen (specimen) 04/04/2015 6:54 PM TRIM SETTER HELPER us Historical Provider MD LAB BLOOD ORDERABLES Deann colby Result HISTORICAL RESULTS * All Microbiology Report Section (04/04/2015 12:00 AM TRIM SETTER HELPER) 04/04/2015 Narrative HISTORICAL RESULTS - 04/10/2015 6:35 AM TRIM SETTER HELPER ? [facility] ?[address] [facility] [address] ?[place], [place] [address] ? Patient Name: ??LEONAMBER MOHSEN Montero ? Med Rec Number: [id number] ? Fin Number: ?[id number] ? Date: ?1955 ? Sex/Age: ? Female 59 years ? Admit Date: ?04/05/2015 ? Discharge Date: 04/05/2015 ? Doctor: ?Medicine , ? Facility: ?[facility] ? Location: ?OTHER ?* Abnormal ??A Alert [...] identification may be ? performed using the [employer] Nanosphere Gram Positive Blood ? Culture Assay. ??The Nanosphere assay detects microbial DNA in ? positive blood culture broth via hybridization of target DNA to ? capture oligonucleotides on a microarray. ??This assay has been ? cleared by the [place] Food and Drug Administration and ? its performance characteristics have been verified by the ? [facility].Current ? Interpretive Data was last revised on 2013. ? us Historical Provider MD LAB MICROBIOLOGY - GENERA L ORDERABLES Final Result HISTORICAL RESULTS * All Microbiology Report Section (04/04/2015 12:00 AM TRIM SETTER HELPER) 04/04/2015 Narrative HISTORICAL RESULTS - 04/10/2015 6:35 AM TRIM SETTER HELPER ? [facility] ?[address] [facility] [place] ?[place], [place] [address] ? Patient Name: ??MOHSEN SALAZAR ? Med Rec Number: [id number] ? Fin Number: ?[id number] ? Date: ?1955 ? Sex/Age: ? Female 59 years ? Admit Date: ?04/05/2015 ? Discharge Date: 04/05/2015 ? Doctor: ?Medicine , ? Facility: ?[facility] ? Location: ?OTHER ?* Abnormal ??A Alert [...] identification may be ? performed using the [employer] Nanosphere Gram Positive Blood ? Culture Assay. ??The Nanosphere assay detects microbial DNA in ? positive blood culture broth via hybridization of target DNA to ? capture oligonucleotides on a microarray. ??This assay has been ? cleared by the [place] Food and Drug Administration and ? its performance characteristics have been verified by the ? [facility].Current ? Interpretive Data was last [...] embolism documented in this encounter Care Teams Cupola Patcher Relationship Specialty Start Date End Date Antoinette Zhu MD [address] [facility] [address] [place] [address] PCP - General 08/01/13 07/26/16 documented as of this encounter
--- OUTSIDE RECORDS SUMMARY | 2024-04-26 09:35 | XMS_ITS | Encounter Summary ---
Author Organization [facility] Healthcare Address [address] [place] [address] Care Team Providers Care Beam Saw Operator Name Role Phone Antoinette Zhu MD Primary Care Provider [phone] Encounter Details Date Type Department Care Team (Late st Contact Info) Description 05/22/2016 11:13 AM NETWORK FIREWALL ENGINEER - 05/22/2016 6:08 PM [facility] [place] [address] [place], [place] [id number] Other chest pain; Shortness of breath; Elevated blood pressure reading without diagnosis of hypertension Social History Tobacco Use Types Packs/Day Years Used Date Smoking Tobacco: Former Alcohol Use Standard Drinks/Week Comments No 0 (1 standard drink = 0.6 oz pur e alcohol) Comments Unknown Sex and Gender Information Value Date Recorded Sex Assigned at Not on file Legal Sex Female 12:24 AM NETWORK FIREWALL ENGINEER Gender Identity Not on file Sexual [...] SERUM TROPONIN I Routine 05/22/2016 1:50 PM NETWORK FIREWALL ENGINEER SERUM THYROID-STIMULATING HORMONE (TSH) Routine 05/22/2016 1:50 PM NETWORK FIREWALL ENGINEER SERUM ESTIMATED GLOMERULAR FILTRATION RATE Routine 05/22/2016 1:50 PM NETWORK FIREWALL ENGINEER PLASMA BASIC METABOLIC PANEL Routine 05/22/2016 1:50 PM NETWORK FIREWALL ENGINEER BLOOD B-TYPE NATRIURETIC PEPTIDE (BNP) Routine 05/22/2016 1:50 PM NETWORK FIREWALL ENGINEER BLOOD CELL COUNT (CBC) Routine 7 1:50 PM NETWORK FIREWALL ENGINEER BLOOD CELL MORPHOLOGIC EXAM Routine 05/22/2016 1:50 PM NETWORK FIREWALL ENGINEER XR CHEST PA LATERAL 2 VIEWS Routine 05/22/2016 1:19 PM NETWORK FIREWALL ENGINEER ELECTROCARDIOGRAPHY (ECG) 05/22/2016 DISCHARGE LABORATORY CUMULATIVE REPORT 05/22/2016 documented in this encounter Results * Serum thyroid-stimulating hormone (TSH) (05/22/2016 1:50 PM NETWORK FIREWALL ENGINEER) Pathologist [facility] TSH 0.73 0.34 - 5.60 mcIUnits/ml CDR HISTORICAL RESULTS Serum 05/22/2016 1:50 PM NETWORK FIREWALL ENGINEER Historical Provider LAB BLOOD ORDERABLES Deann l Result Performing Organization Address [facility] de Phone Number CDR HISTORICAL RESULTS * Serum troponin I (05/22/2016 1:50 PM NETWORK FIREWALL ENGINEER) Pathologist [facility] Troponin I <0.03 0.00 - 0.14 ng/ml CDR HISTORICAL RESULTS Comment: Interpretive Data Normal: ? 0.00 - 0.14 ng/mL Indeterminate: ?0.15 - 0.50 ng/mL [place] / Cardiac Muscle Damage: ? >0.50 ng/mL Current interpretive data was last reviewed 2015 Serum 05/22/2016 1:50 PM NETWORK FIREWALL ENGINEER Historical Provider LAB BLOOD ORDERABLES Deann l Result Performing Organization Address [facility] de Phone Number CDR HISTORICAL RESULTS * Blood B-type natriuretic peptide (BNP) (05/22/2016 1:50 PM NETWORK FIREWALL ENGINEER) Pathologist [facility] BNP 15 0 - 100 pg/ml CDR HISTORICAL RESULTS Blood specimen (specimen) 05/22/2016 1:50 PM NETWORK FIREWALL ENGINEER Historical Provider LAB BLOOD ORDERABLES Deann l Result Performing Organization Address City/[facility] de Phone Number CDR HISTORICAL RESULTS * (ABNORMAL) Plasma basic metabolic panel (05/22/2016 1:50 PM NETWORK FIREWALL ENGINEER) Pathologist [facility] Sodium 134(L) 135 - 145 mmol/L CDR [...] CDR HISTORICAL RESULTS Plasma 05/22/2016 1:50 PM NETWORK FIREWALL ENGINEER Historical Provider LAB BLOOD ORDERABLES Deann l Result Performing Organization Address City/[facility] Co de Phone Number CDR HISTORICAL RESULTS * (ABNORMAL) Blood cell count (CBC) (05/22/2016 1:50 PM NETWORK FIREWALL ENGINEER) WBC 10.4(H) 3.8 - 9.9 K/cumm CDR [...] RESULTS Blood specimen (specimen) 05/22/2016 1:50 PM NETWORK FIREWALL ENGINEER Historical Provider LAB BLOOD ORDERABLES Deann l Result Performing Organization Address City/State/[facility] Co de Phone Number CDR HISTORICAL RESULTS * (ABNORMAL) Blood cell morphologic exam (05/22/2016 1:50 PM NETWORK FIREWALL ENGINEER) Neutrophils 66.0 % CDR HIST ORICAL RESULTS [...] RESULTS Blood specimen (specimen) 05/22/2016 1:50 PM NETWORK FIREWALL ENGINEER us Historical Provider LAB BLOOD ORDERABLES Deann bowman Result CDR HISTORICAL RESULTS * Serum estimated glomerular filtration rate (05/22/2016 1:50 PM NETWORK FIREWALL ENGINEER) eGFR 93 ml/min/1.7 3 m2 CDR HISTORICAL RESULTS Comment: Interpretive Data Reference Interval Normal ?>/= 90 mL/min/1.73m2 Mildly decreased* ? 60 - 89 mL/min/1.73m2 Mildly to moderately decreased ?45 - 59 mL/min/1.73m2 Moderately to severely decreased ??30 - 44 mL/min/1.73m2 Severely decreased ?15 - 29 mL/min/1.73m2 Kidney Failure ?< 15 ??mL/min/1.73m2 *Relative to young adult level If -Bermudian multiply value by 1.16. Estimated glomerular filtration [...] last reviewed 2015. Serum 05/22/2016 1:50 PM NETWORK FIREWALL ENGINEER us Historical Provider LAB BLOOD ORDERABLES Deann l Result CDR HISTORICAL RESULTS * XR Chest Pa Lateral 2 Views (05/22/2016 1:19 PM NETWORK FIREWALL ENGINEER) Anatomical Region Laterality Modality Body, Chest N/A Radiographic Lizeth ging 05/22/2016 1:19 PM NETWORK FIREWALL ENGINEER Narrative 05/23/2016 8:43 AM NETWORK FIREWALL ENGINEER DATE OF EXAM: ??May 22 2016 ??1:19PM Acc#: ??[id number] ??EDX [id number] - XR Chest 2 Views [...] IMPRESSION: ? NO ACUTE CARDIOPULMONARY PROCESS. ? TRANSITIONAL CARE NURSE: ??LB3 TRANSCRIBE DATE/TIME: ??May 22 2016 10:29P RADIOLOGIST: ??RAQUEL BASSETT M.D. ??READ ON: ??May 22 2016 ??3:03P ORDERING DR: ROSIO BRYANT M.D. THIS DOCUMENT HAS BEEN ELECTRONICALLY SIGNED BY: ??RAQUEL BASSETT M.D. ??ON: ??May 23 2016 ??8:43A Attending: ??ANNETTE, ??ROSIO Requesting: ??ANNETTE, ??ROSIO Requesting Fax: ??-- Attending Fax: ??[phone] Attending ID: ??[id number] Requesting ID: ??[id number] Report To 1 ID: ?? Report To 1 Name: ??, ?? Report To 1 FAX: ??-- Report To 2 ID: ?? Report To 2 Name: ??, ?? Report To 2 FAX: ??-- NextGen Order #: ?? Procedure Note Provider, MD Tyler - 09/30/2016 DATE OF EXAM: May 22 2016 1:19PM Acc#: [id number] EDX [id number] - XR Chest 2 Views [...] prior cholecystectomy. IMPRESSION: NO ACUTE CARDIOPULMONARY PROCESS. TRANSITIONAL CARE NURSE: LB3 TRANSCRIBE DATE/TIME: May 22 2016 10:29P RADIOLOGIST: RAQUEL BASSETT M.D. READ ON: May 22 2016 3:03P ORDERING DR: ROSIO BRYANT M.D. THIS DOCUMENT HAS BEEN ELECTRONICALLY SIGNED BY: RAQUEL BASSETT M.D. ON: May 23 2016 8:43A Attending: ROSIO BRYANT Requesting: ROSIO BRYANT Requesting Fax: -- Attending Attending ID: [id number] Requesting ID: [id number] Report To 1 ID: Report To 1 [...] hypertension documented in this encounter Care Teams Beam Saw Operator Relationship Specialty Start Date End Date Antoinette Zhu MD [address] [address] PCP - General 08/01/13 07/26/16 documented as of this encounter
--- OUTSIDE RECORDS SUMMARY | 2024-04-26 09:35 | XMS_ITS | Encounter Summary ---
Author Organization [facility] Facility Care Team Providers Care Drafting Engineer Name Role Phone Antoinette Zhu MD Primary Care Provider [phone] Encounter Details Date Type Department Care Team (Late st Contact Info) Description 11/25/2015 12:51 AM CDT - 11/28/2015 1:35 PM T Hospital [facility] MD 1 [facility] [address] [place] [address] Disease of stomach and duodenum; Type 2 [...] (severe) obesity due to excess calories (HCC); residential current use of selective estrogen receptor modulators [...] on file Legal Sex Female 12:24 AM PEOPLESOFT FUNCTIONAL ANALYST Gender Identity Not on file Sexual [...] Woo MD LAB BLOOD ORDERABLES Final R [facility] Performing Organization Address City/[facility] Co de Phone Number CDR HISTORICAL [...] ORDERABLES Final R esult Performing Organization Address [facility] Co de Phone Number CDR HISTORICAL [...] agrees with it. ACC# ??Date Time ??Exam [id number] Nov 27, 2015 14:50:00 53423 Abdmn wi Decub &/or Erect EXAMINATION: ?Abdomen, [...] FRANCESCA JONES M.D. on Nov ??2015 ??3:46P [id number] Procedure Note Provider, MD Tyler - 08/12/2016 Avery GAYTAN M.D. FINAL REPORT The radiology attending physician has personally reviewed this study, and has reviewed and/or edited this written report and agrees with it. ACC# Date Time Exam [id number] Nov 27, 2015 14:50:00 89131 Abdmn wi Decub &/or Erect EXAMINATION: Abdomen, [...] JONES M.D. on Nov 27 2015 3:46P [id number] us Historical Provider IMG XR PROCEDURES Final [...] agrees with it. ACC# ??Date Time ??Exam [id number] Nov 27, 2015 09:10:00 99213 Transvag Sono ACC# ??Date Time ??Exam [id number] Nov 27, 2015 09:10:00 96489 Transvag Sono EXAMINATION: ?? TRANSVAGINAL SONOGRAM HISTORY: [...] CAMARA M.D. on Nov 27 2015 ??1:20P [id number] Procedure Note Provider, MD Tyler - 08/12/2016 ANTONIO CAMARA M.D. RUFINO SMILEY M.D. FINAL REPORT The radiology attending physician has personally reviewed this study, and has reviewed and/or edited this written report and agrees with it. ACC# Date Time Exam [id number] Nov 27, 2015 09:10:00 53384 Transvag Sono ACC# Date Time Exam [id number] Nov 27, 2015 09:10:00 [id number] Transvag Sono EXAMINATION: TRANSVAGINAL SONOGRAM HISTORY: 60-year-old [...] CAMARA M.D. on Nov 27 2015 1:20P [id number] us Historical Provider [facility] US PROCEDURES Final R esult * Blood [...] ORDERABLES Final Res ult Performing Organization Address [facility]/ZIP Co de Phone Number LAB MEG 88 * Serum thyroid-stimulating hormone (TSH) (11/26/2015 9:08 PM CDT) TSH 1.26 0.30 - 4.20 mcIUnits/m l LAB MEG 88 Comment: Interpretive Data Hyperthyroid: ??<0.1 mcIUnit/mL Hypothyroid: ??>12.0 mcIUnit/mL Current interpretive data was last revised on 00. Serum 11/26/2015 9:08 PM CDT us Allen De MD LAB BLOOD ORDERABLES Final Re sult Performing Organization Address [facility] Co de Phone Number LAB MEG 88 [...] ORDERABLES Final Re sult Performing Organization Address [facility] Co de Phone Number LAB MEG 88 * Serum ferritin (11/26/2015 9:08 PM CDT) Ferritin 121 15 - 150 ng/ml LAB MEG 88 Serum 11/26/2015 9:08 PM CDT us Allen De MD LAB BLOOD ORDERABLES Final Re sult Performing Organization Address [facility] Co de Phone Number LAB MEG 88 [...] ORDERABLES Final Re sult Performing Organization Address [facility] de Phone Number CDR HISTORICAL [...] ORDERABLES Final Re sult Performing Organization Address [facility] Co de Phone Number CDR HISTORICAL [...] ORDERABLES Final Re sult Performing Organization Address [facility] Phone Number CDR HISTORICAL RESULTS * Blood glucose, POC (11/26/2015 5:19 PM CDT) Glucose, POC, bld 82 70 - 199 mg/dl LAB MEG 88 Gluc, com 1, bld RN Notified LAB MEG 88 Blood specimen (specimen) 11/26/2015 5:19 PM CDT Evie Woo MD LAB BLOOD ORDERABLES Final R esult Performing Organization Address [facility] Phone Number LAB MEG 88 * Blood glucose, POC (11/26/2015 11:49 AM CDT) Glucose, POC, bld 87 70 - 199 mg/dl LAB MEG 88 Gluc, com 1, bld RN Notified LAB MEG 88 Blood specimen (specimen) 11/26/2015 11:49 AM CDT Evie Woo MD LAB BLOOD ORDERABLES Final R esult Performing Organization Address [facility] Phone Number LAB MEG 88 * Blood glucose, POC (11/26/2015 8:07 AM CDT) Glucose, POC, bld 114 70 - 199 mg/dl LAB MEG 88 Gluc, com 1, bld RN Notified LAB MEG 88 Blood specimen (specimen) 11/26/2015 8:07 AM CDT Evie Woo MD LAB BLOOD ORDERABLES Final R esult Performing Organization Address [facility] Phone Number LAB MEG 88 * Plasma [...] ORDERABLES Final Res ult Performing Organization Address [facility]/ZIP Co de Phone Number LAB MEG 88 * Blood glucose, POC (11/25/2015 9:22 PM CDT) Glucose, POC, bld 102 70 - 199 mg/dl LAB MEG 88 Blood specimen (specimen) 11/25/2015 9:22 PM CDT Evie Woo MD LAB BLOOD ORDERABLES Final R esult Performing Organization Address City/[facility]/ZIP Co de Phone Number LAB MEG 88 * Plasma lactic acid (11/25/2015 5:41 PM CDT) Lactic acid 1.6 0.7 - 2.2 mmol/L LAB MEG 88 Plasma 11/25/2015 5:41 PM CDT Allen De MD LAB BLOOD ORDERABLES Final Re sult Performing Organization Address City/[facility]/ZIP Co de Phone Number LAB MEG 88 * Blood glucose, POC (11/25/2015 5:30 PM CDT) Glucose, POC, bld 109 70 - 199 mg/dl LAB MEG 88 Blood specimen (specimen) 11/25/2015 5:30 PM CDT Evie Woo MD LAB BLOOD ORDERABLES Final R esult Performing Organization Address [facility] Phone Number LAB MEG 88 * Blood glucose, POC (11/25/2015 11:53 AM CDT) Glucose, POC, bld 107 70 - 199 mg/dl LAB MEG 88 Blood specimen (specimen) 11/25/2015 11:53 AM CDT Evie Woo MD LAB BLOOD ORDERABLES Final R esult Performing Organization Address [facility] Phone Number LAB MEG 88 * Blood glucose, POC (11/25/2015 7:55 AM CDT) Glucose, POC, bld 118 70 - 199 mg/dl LAB MEG 88 Blood specimen (specimen) 11/25/2015 7:55 AM CDT Evie Woo MD LAB BLOOD ORDERABLES Final R esult Performing Organization Address [facility] Phone Number LAB MEG 88 * Blood glucose, POC (11/25/2015 1:04 AM CDT) Glucose, POC, bld 127 70 - 199 mg/dl LAB MEG 88 Blood specimen (specimen) 11/25/2015 1:04 AM CDT Jimmie Covington MD LAB BLOOD ORDERABLES Deann l Result Performing Organization Address [facility] Co de Phone Number LAB MEG 88 [...] ORDERABLES Final Res ult Performing Organization Address [facility]/ZIP Co de Phone Number LAB MEG [...] ORDERABLES Final Res ult Performing Organization Address [facility]/ZIP Co de Phone Number LAB MEG [...] agrees with it. ACC# ??Date Time ??Exam [id number] Nov 24, 2015 18:26:[id number] Abd & Pelvis with cont EXAMINATION: [...] MARLENY SOW M.D. on Nov ??2015 12:22P [id number] Procedure Note Provider, MD Tyler - 08/12/2016 MARLENY SOW M.D. KRZYSZTOF MEDEROS M.D. FINAL REPORT The radiology attending physician has personally reviewed this study, and has reviewed and/or edited this written report and agrees with it. ACC# Date Time Exam [id number] Nov 24, 2015 18:26:[address] Abd & Pelvis with cont EXAMINATION: [...] Requested By: ALTA HARVEY M.D. Dictated By: KRZYSZTOF MEDEROS M.D. on Nov 25 2015 8:01A This document has been electronically signed by: MARLENY SOW M.D. on Nov 26 2015 12:22P [id number] us Historical Provider IMMichael CT PROCEDURES Final R esult * Plasma hepatic function panel (11/24/2015 12:28 PM CDT) Protein, pl 8.1 6.5 - 8.5 g/dl LAB MEG 88 Alb 3.9 3.5 - 5.0 g/dl [...] ORDERABLES Final Res ult Performing Organization Address [facility] de Phone Number LAB MEG 88 * Plasma basic metabolic panel (11/24/2015 [...] ORDERABLES Final Res ult Performing Organization Address [facility] de Phone Number LAB MEG 88 * Serum lipase (11/24/2015 12:28 PM CDT) Lip 49 10 - 99 Units/L LAB MEG 88 Serum 11/24/2015 12:2 8 PM CDT Demarcus Joy MD LAB BLOOD ORDERABLES Final Res ult Performing Organization Address [facility] de Phone Number LAB MEG 88 * [...] ORDERABLES Final Res ult Performing Organization Address City/[facility]/ZIP Co de Phone Number LAB MEG 88 * Blood ABO, Rh, indirect ab screen (11/24/2015 12:28 PM CDT) ABO, Rho(D) O Positive LAB MEG 88 Dilcia, indirect Negative LAB MEG 88 Blood specimen (specimen) 11/24/2015 12:28 PM CDT Demarcus Joy MD LAB BLOOD ORDERABLES Final Res ult Performing Organization Address City/[facility]/ZIP Co de Phone Number LAB MEG [...] ORDERABLES Final Res ult Performing Organization Address [facility] de Phone Number LAB MEG 88 * [...] and children were not included. ??(Diabetes Care 31:6172-3500, 2007). ??The eAG is not equivalent to a fasting glucose. Blood specimen (specimen) 11/24/2015 12:28 PM CDT Demarcus Joy MD LAB BLOOD ORDERABLES Final Res ult Performing Organization Address [facility] de Phone Number LAB MEG 88 * Blood glucose, POC (11/24/2015 12:09 PM CDT) Glucose, POC, bld 139 70 - 199 mg/dl LAB MEG 88 Blood specimen (specimen) 11/24/2015 12:09 PM CDT Result [facility] Tyler Smith MD LAB BLOOD ORDERABLES Deann l Result Performing Organization Address [facility] Co de Phone Number LAB MEG 88 [...] (severe) obesity due to excess calories (HCC) 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
--- OUTSIDE RECORDS SUMMARY | 2024-04-26 09:35 | XMS_ITS | Encounter Summary ---
Author Organization [facility] Facility Care Team Providers Care Cartographic Technician Name Role Phone Antoinette Zhu MD Primary Care Provider [phone] Encounter Details Date Type Department Care Team (Late st Contact Info) Description 02/19/2015 3:24 PM CDT - 02/19/2015 4:00 PM T Hospital Encounter [facility] [place], [place] [address] [place] [id number] Displaced fracture of fifth metatarsal bone of [...] file Legal Sex Female 12:24 AM TOOL TROUBLE SHOOTER Gender Identity Not on file Sexual Orientation [...] PHD FINAL REPORT ACC# ??Date Time ??Exam [id number] Feb 19, 2015 15:36:00 36454 Foot Complt. min 3 views L EXAMINATION: [...] MD, PHD on Feb 19 2015 ??3:44P [id number] Procedure Note Provider, MD Tyler - 08/12/2016 PILY CALZADA MD, PHD FINAL REPORT ACC# Date Time Exam [id number] Feb 19, 2015 15:36:00 77036 Foot Complt. min 3 views L EXAMINATION: [...] MD, PHD on Feb 19 2015 3:44P [id number] Historical Provider IMG XR PROCEDURES Final R esult documented in this encounter Visit Diagnoses Diagnosis Displaced fracture of fifth metatarsal bone of left foot with routine healing Exposure to other specified factors, subsequent encounter documented in this encounter Care Teams Cartographic Technician Relationship Specialty Start Date End Date Antoinette Zhu MD [address] [address] PCP - General 08/01/13 07/26/16 documented as of this encounter
--- OUTSIDE RECORDS SUMMARY | 2024-04-26 09:35 | XMS_ITS | Encounter Summary ---
Author Organization [facility] Facility Care Team Providers Care Fibrous Wallboard Inspector Name Role Phone Antoinette Zhu MD Primary Care Provider [phone] Encounter Details Date Type Department Care Team (Late st Contact Info) Description 03/12/2015 2:54 PM PROPERTY MANAGEMENT BOOKKEEPER - 03/12/2015 4:00 PM [facility] [place], [place] [address] [place] [id number] Displaced fracture of fifth metatarsal bone of left foot with routine healing Social History Tobacco Use Types Packs/Day Years Used Date Smoking Tobacco: Former Alcohol Use Standard Drinks/Week Comments No 0 (1 standard drink = 0.6 oz pur e alcohol) Comments Unknown Sex and Gender Information Value Date Recorded Sex Assigned at Not on file Legal Sex Female 12:24 AM PROPERTY MANAGEMENT BOOKKEEPER Gender Identity Not on file Sexual Orientation [...] FOOT 3+ VW Routine 03/12/2015 3:13 PM PROPERTY MANAGEMENT BOOKKEEPER documented in this encounter Results * XR Foot 3+ Vw (03/12/2015 3:13 PM PROPERTY MANAGEMENT BOOKKEEPER) Anatomical Region Laterality Modality N/A Radiographic Lizeth ging 03/12/2015 3:13 PM PROPERTY MANAGEMENT BOOKKEEPER Narrative 03/12/2015 3:33 PM PROPERTY MANAGEMENT BOOKKEEPER JEFFERSON VINCENT M.D. FINAL REPORT ACC# ??Date Time ??Exam [id number] Mar 12, 2015 15:13:00 13952 Foot Complt. min 3 views L EXAMINATION: [...] VINCENT M.D. on Mar 12 2015 ??3:33P [id number] Procedure Note Provider, MD Tyler - 08/12/2016 JEFFERSON VINCENT M.D. FINAL REPORT ACC# Date Time Exam [id number] Mar 12, 2015 15:13:00 [id number] Foot Complt. min 3 views L EXAMINATION: [...] VINCENT M.D. on Mar 12 2015 3:33P [id number] Historical Provider IMG XR PROCEDURES Final R esult documented in this encounter Visit Diagnoses Diagnosis Displaced fracture of fifth metatarsal bone of left foot with routine healing documented in this encounter Care Teams Fibrous Wallboard Inspector Relationship Specialty Start Date End Date Antoinette Zhu MD [address] [place] [id number] PCP - General 08/01/13 07/26/16 documented as of this encounter
--- OUTSIDE RECORDS SUMMARY | 2024-04-26 09:35 | XMS_ITS | Encounter Summary ---
Author Organization [facility] Healthcare Address [address] [place] [address] Care Team Providers Care Runner Man Name Role Phone Antoinette Zhu MD Primary Care Provider [phone] Encounter Details Date Type Department Care Team (Latest Contact Info) Description 04/27/2016 12:00 PM SENIOR RESEARCH EXECUTIVE - 04/27/2016 11:59 PM [facility] Hospital Encounter [facility] [phone] Khris Arthur MD [address] [place] [id number] [place] [address] Discharge Disposition: Discharge to home or self care Social History Tobacco Use Types Packs/Day Years Used Date Smoking Tobacco: Former Alcohol Use Standard Drinks/Week Comments No 0 (1 standard drink = 0.6 oz pur e alcohol) Comments Unknown Sex and Gender Information Value Date Recorded Sex Assigned at Not on file Legal Sex Female 12:24 AM SENIOR RESEARCH EXECUTIVE Gender Identity Not on file Sexual [...] on filedocumented in this encounter Care Teams Runner Man Relationship Specialty Start Date End Date Antoinette Zhu MD [address] [address] PCP - General 08/01/13 07/26/16 documented as of this encounter
--- OUTSIDE RECORDS SUMMARY | 2024-04-26 09:35 | XMS_ITS | Encounter Summary ---
Author Organization [facility] Care Team Providers Care Supervisor Graphite Name Role Phone Antoinette Zhu MD Primary Care Provider [phone] Encounter Details Date Type Department Care Team (Late st Contact Info) Description 03/30/2015 1:01 PM FOCUSED FACTORY MANAGER - 03/30/2015 9:[address] 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 Social History Tobacco Use Types Packs/Day Years Used Date Smoking Tobacco: Former Alcohol Use Standard Drinks/Week Comments No 0 (1 standard drink = 0.6 oz pur e alcohol) Comments Unknown Sex and Gender Information Value Date Recorded Sex Assigned at Not on file Legal Sex Female 12:24 AM FOCUSED FACTORY MANAGER Gender Identity Not on file Sexual Orientation Not on file documented as of this encounter Last Filed Vital Signs Vital Sign Reading Time Taken Comments Blood Pressure 130/74 03/30/2015 1:13 PM FOCUSED FACTORY MANAGER Pulse 85 03/30/2015 1:13 PM FOCUSED FACTORY MANAGER Temperature - - Respiratory Rate - - Oxygen Saturation 99% 03/30/2015 1:13 PM FOCUSED FACTORY MANAGER Inhaled Oxygen Concentration - - Weight 132.9 kg (292 lb 15.9 oz) 03/30/2015 1:15 PM FOCUSED FACTORY MANAGER Height 154.9 cm (5' 1 ) 03/30/2015 1:15 PM FOCUSED FACTORY MANAGER Body Mass Index 55.36 03/30/2015 1:15 PM FOCUSED FACTORY MANAGER documented in this encounter Medications at Time [...] PLASMA METANEPHRINE Routine 03/30/2015 5 :04 PM FOCUSED FACTORY MANAGER URINE (AEROBIC) CULTURE, [facility] Routine 03/30/2015 3:14 PM FOCUSED FACTORY MANAGER BLOOD CULTURE, [facility] Routine 03/30/2015 3: 14 PM FOCUSED FACTORY MANAGER URINE MICROSCOPY Routine 03/30/2015 3:14 PM FOCUSED FACTORY MANAGER SERUM THYROID-STIMULATING HORMONE (TSH) Routine 03/30/2015 3:14 PM FOCUSED FACTORY MANAGER SERUM MAGNESIUM Routine 03/30/2015 3:14 PM FOCUSED FACTORY MANAGER PLASMA PHOSPHORUS Routine 03/30/2015 3:1 4 PM FOCUSED FACTORY MANAGER PLASMA COMPREHENSIVE METABOLIC PANEL Routine 03/30/2015 3:14 PM FOCUSED FACTORY MANAGER URINALYSIS Routine 03/30/2015 3:14 PM FOCUSED FACTORY MANAGER BLOOD CELL COUNT (CBC) Routine 5 3:14 PM FOCUSED FACTORY MANAGER BLOOD ABO, RH, INDIRECT AB SCREEN Routine 03/30/2015 3:14 PM FOCUSED FACTORY MANAGER CHEST RADIOGRAPHY, FRONTAL (AP), LATERAL Routine 03/30/2015 2:08 PM FOCUSED FACTORY MANAGER ALL MICROBIOLOGY REPORT SECTION Routine 03/30/2015 12:00 AM FOCUSED FACTORY MANAGER ALL MICROBIOLOGY REPORT SECTION Routine 03/30/2015 12:00 AM FOCUSED FACTORY MANAGER DISCHARGE LABORATORY CUMULATIVE REPORT 03/30/2015 documented in this encounter Results * Plasma metanephrine (03/30/2015 5:04 PM FOCUSED FACTORY MANAGER) Pathologist [facility] [place] Metanephrines <0.20 <0.50 nmol/L HISTORICAL RESULTS Comment: Test Performed by: [place] [address] [employer] Sales: Albert Oliver II, M.D., Ph.D. Normetanephrines 0.39 <0.90 nmol/L HISTORICAL RESULTS Plasma 03/30/2015 5:04 PM FOCUSED FACTORY MANAGER us Historical Provider LAB BLOOD ORDERABLES Deann bowman Result HISTORICAL RESULTS * (ABNORMAL) Urinalysis (03/30/2015 3:14 PM FOCUSED FACTORY MANAGER) Color, ur Yellow Yellow HISTORICAL RESULTS Clarity, [...] Negative HISTORICAL RESULTS Urine 03/30/2015 3:14 PM FOCUSED FACTORY MANAGER Result [facility] Provider LAB BLOOD ORDERABLES Deann l Result Performing Organization Address [facility] de Phone Number HISTORICAL RESULTS * (ABNORMAL) Urine microscopy (03/30/2015 3:14 PM FOCUSED FACTORY MANAGER) RBC, ur 4(H) 0 - 3 /hpf HISTORICA L RESULTS WBC, ur 0 0 - 5 /hpf HISTORICA L RESULTS Bacteria, ur Negative Trace HISTORI JOY RESULTS Epithelial cells, renal, ur 0 0 - 0 /hpf HISTORICAL RESULTS Epithelial cells, squamous, ur 12 /lpf HISTORICAL RESULTS Mucus, ur Small /hpf HISTORICAL RESULTS Urine 03/30/2015 3:14 PM FOCUSED FACTORY MANAGER Result [facility] Provider LAB BLOOD ORDERABLES Deann l Result Performing Organization Address [facility] de Phone Number HISTORICAL RESULTS * (ABNORMAL) Serum thyroid-stimulating hormone (TSH) (03/30/2015 3:14 PM FOCUSED FACTORY MANAGER) TSH <0.02(L) 0.35 - 5.50 mcIUnits/ ml HISTORICAL RESULTS Comment: Interpretive Data Hyperthyroid: ??<0.1 mcIUnit/mL Hypothyroid: ??>12.0 mcIUnit/mL Current interpretive data was last revised on 00. Serum 03/30/2015 3:14 PM FOCUSED FACTORY MANAGER Result [facility] Historical Provider LAB BLOOD ORDERABLES Deann l Result Performing Organization Address [facility] de Phone Number HISTORICAL RESULTS * Blood ABO, Rh, indirect ab screen (03/30/2015 3:14 PM FOCUSED FACTORY MANAGER) ABO, Rho(D) O Positive HISTORI JOY RESULTS Dilcia, indirect Negative HISTORICAL RESULTS Blood specimen (specimen) 03/30/2015 3:14 PM FOCUSED FACTORY MANAGER Historical Provider LAB BLOOD ORDERABLES Deann l Result Performing Organization Address [facility] de Phone Number HISTORICAL RESULTS * Plasma comprehensive metabolic panel (03/30/2015 3:14 PM FOCUSED FACTORY MANAGER) Sodium 139 135 - 145 mmol/L HISTORICAL [...] Units/L HISTORICAL RESULTS Plasma 03/30/2015 3:14 PM FOCUSED FACTORY MANAGER Historical Provider LAB BLOOD ORDERABLES Deann l Result Performing Organization Address City/[facility] Co de Phone Number HISTORICAL RESULTS * Plasma phosphorus (03/30/2015 3:14 PM FOCUSED FACTORY MANAGER) Phosphorus, pl 3.5 2.3 - 4.3 mg/dl HISTORICAL RESULTS Plasma 03/30/2015 3:14 PM FOCUSED FACTORY MANAGER Historical Provider MD LAB BLOOD ORDERABLES Deann l Result HISTORICAL RESULTS * Serum magnesium (03/30/2015 3:14 PM FOCUSED FACTORY MANAGER) Magnesium 1.9 1.4 - 2.5 mg/dl HISTORICAL RESULTS Serum 03/30/2015 3:14 PM FOCUSED FACTORY MANAGER Historical Provider MD LAB BLOOD ORDERABLES Deann l Result Performing Organization Address [facility] Co de Phone Number HISTORICAL RESULTS * (ABNORMAL) Blood cell count (CBC) (03/30/2015 3:14 PM FOCUSED FACTORY MANAGER) WBC 7.2 3.8 - 9.8 K/cumm HISTORICAL [...] RESULTS Blood specimen (specimen) 03/30/2015 3:14 PM FOCUSED FACTORY MANAGER Historical Provider MD LAB BLOOD ORDERABLES Deann l Result Performing Organization Address [facility] de Phone Number HISTORICAL RESULTS * Blood culture (03/30/2015 3:14 PM FOCUSED FACTORY MANAGER) Blood specimen (specimen) (Antecubital, right) 03/30/2015 3:14 PM FOCUSED FACTORY MANAGER 03/30/2015 4:34 PM FOCUSED FACTORY MANAGER Impressions HISTORICAL RESULTS - 04/05/2015 2:59 AM FOCUSED FACTORY MANAGER Blood cultures are incubated for five days on a continuously monitored blood culture system. ??The first report of a negative culture is issued within 24 hours of receipt of the specimen in the laboratory. ??Positive culture results are reported as soon as they are detected. ??For blood cultures with gram-positive cocci, a rapid molecular test for organism identification may be performed using the [employer] Nanosphere Gram Positive Blood Culture Assay. ??The [...] Narrative HISTORICAL RESULTS - 04/05/2015 2:59 AM FOCUSED FACTORY MANAGER No growth Historical Provider LAB MICROBIOLOGY - GENERA L ORDERABLES Final Result Performing Organization Address [facility] de Phone Number HISTORICAL RESULTS * Urine (aerobic) culture (03/30/2015 3:14 PM FOCUSED FACTORY MANAGER) Urine, clean voided (Unknown) 03/30/2015 3:14 PM FOCUSED FACTORY MANAGER 03/30/2015 4:26 PM FOCUSED FACTORY MANAGER Narrative HISTORICAL RESULTS - 04/03/2015 3:10 PM FOCUSED FACTORY MANAGER Growth indicative of contamination with periurethral evelio. Please submit a new specimen with special attention given to the collection process and to prompt transport to the laboratory. Historical Provider LAB MICROBIOLOGY - GENERA L ORDERABLES Final Result Performing Organization Address [facility]/ZIP Co de Phone Number HISTORICAL RESULTS * CHEST RADIOGRAPHY, FRONTAL (AP), LATERAL (03/30/2015 2:08 PM FOCUSED FACTORY MANAGER) Anatomical Region Laterality Modality N/A Radiographic Lizeth ging 03/30/2015 2:08 PM FOCUSED FACTORY MANAGER Narrative 03/30/2015 5:12 PM FOCUSED FACTORY MANAGER JEFFERSON BROWN M.D. DAHLIA HIGHTOWER M.D. FINAL REPORT The radiology attending physician has personally reviewed this study, and has reviewed and/or edited this written report and agrees with it. ACC# ??Date Time ??Exam [id number] Mar 30, 2015 14:08:00 [id number] Chest 2 views Frontl & Lat EXAMINATION: [...] by: JEFFERSON BROWN M.D. on Mar ??5:12P [id number] Procedure Note Provider, Tyler, - 08/12/2016 JEFFERSON BROWN M.D. DAHLIA HIGHTOWER M.D. FINAL REPORT The radiology attending physician has personally reviewed this study, and has reviewed and/or edited this written report and agrees with it. ACC# Date Time Exam [id number] Mar 30, 2015 14:08:00 [id number] Chest 2 views Frontl & Lat EXAMINATION: [...] BROWN M.D. on Mar 30 2015 5:12P [id number] us Historical Provider MD IMG XR PROCEDURES Final R esult * DISCHARGE LABORATORY CUMULATIVE REPORT (03/30/2015) Narrative 03/30/2015 Ordered by an unspecified provider. us Historical Provider LAB BLOOD ORDERABLES Deann bowman Result * All Microbiology Report Section (03/30/2015 12:00 AM FOCUSED FACTORY MANAGER) 03/30/2015 Narrative HISTORICAL RESULTS - 04/03/2015 3:32 PM FOCUSED FACTORY MANAGER ? [facility] ?[address] [facility] [address] ?[place] [address] ? Patient Name: ??MOHSEN SALAZAR ? Med Rec Number: [id number] ? Fin Number: ?[id number] ? Date: ?1955 ? Sex/Age: ? Female 59 years ? Admit Date: ?03/30/2015 ? Discharge Date: 03/30/2015 ? Doctor: ?Khris Arthur ? Facility: ?[facility] ? Location: ?247 ?* Abnormal ??A Alert [...] All Microbiology Report Section (03/30/2015 12:00 AM FOCUSED FACTORY MANAGER) 03/30/2015 Narrative HISTORICAL RESULTS - 04/05/2015 3:28 AM FOCUSED FACTORY MANAGER ? [facility] ?[facility] [address] ?[place] [facility] [address] ? Patient Name: ??MOHSEN SALAZAR ? Med Rec Number: [id number] ? Fin Number: ?[id number] ? Date: ?1955 ? Sex/Age: ? Female 59 years ? Admit Date: ?03/30/2015 ? Discharge Date: 03/30/2015 ? Doctor: ?Ademulucerowa , [place] O ? Facility: ?[facility] ? Location: ?247C ?* Abnormal ??A Alert [...] identification may be ? performed using the [employer] Nan[employer] Gram Positive Blood ? Culture Assay. 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
--- OUTSIDE RECORDS SUMMARY | 2024-04-26 09:35 | XMS_ITS | Encounter Summary ---
Author Organization [facility] Facility Care Team Providers Care Insurance Attorney Name Role Phone Antoinette Zhu MD Primary Care Provider [phone] Encounter Details Date Type Department Care Team (Late st Contact Info) Description 10/17/2014 - 04/23/2015 11:59 PM RECOVERY MANAGER Hospital Encounter [facility] Garcia MD [address] [facility] [address] [place] [address] Malignant neoplasm of breast (female) (CMS/HCC) Social History Tobacco Use Types Packs/Day Years Used Date Smoking Tobacco: Former Alcohol Use Standard Drinks/Week Comments No 0 (1 standard drink = 0.6 oz pur e alcohol) Comments Unknown Sex and Gender Information Value Date Recorded Sex Assigned at Not on file Legal Sex Female 12:24 AM RECOVERY MANAGER Gender Identity Not on file Sexual [...] BLOOD ORDERABLES Final Result Performing Organization Address City/[facility] Co de Phone Number HISTORICAL [...] BLOOD ORDERABLES Final Result Performing Organization Address City/[facility] Co de Phone Number HISTORICAL [...] CAM (10/20/2014 2:30 PM CDT) Pathologist [facility] WBC 10.2(H) 3.8 - 9.8 K/cumm HISTORICAL [...] site documented in this encounter Care Teams Insurance Attorney Relationship Specialty Start Date End Date Antoinette Zhu MD [address] [address] PCP - General 08/01/13 07/26/16 documented as of this encounter
--- OUTSIDE RECORDS SUMMARY | 2024-04-26 09:35 | XMS_ITS | Encounter Summary ---
Author Organization [facility] Care Team Providers Care Electronic Technologist Name Role Phone Antoinette Zhu MD Primary Care Provider [phone] Encounter Details Date Type Department Care Team (Late st Contact Info) Description 03/15/2016 5:58 PM MARKET GARDEN WORKER - 03/16/2016 11:59 PM [facility] Hospital Encounter [facility] John Paul Vega MD [address] [place] [address] Procedure not carried out because of patient's decision Social History Tobacco Use Types Packs/Day Years Used Date Smoking Tobacco: Former Alcohol Use Standard Drinks/Week Comments No 0 (1 standard drink = 0.6 oz pur e alcohol) Comments Unknown Sex and Gender Information Value Date Recorded Sex Assigned at Not on file Legal Sex Female 12:24 AM MARKET GARDEN WORKER Gender Identity Not on file Sexual [...] ABDOMEN 2 VW Routine 03/15/2016 10:45 PM MARKET GARDEN WORKER XR CHEST PA LATERAL 2 VIEWS Routine 03/15/2016 10:45 PM MARKET GARDEN WORKER SERUM TROPONIN I Routine 03/15/2016 7:14 PM MARKET GARDEN WORKER SERUM THYROID-STIMULATING HORMONE (TSH) Routine 03/15/2016 7:14 PM MARKET GARDEN WORKER SERUM LIPASE Routine 03/15/2016 7:14 PM MARKET GARDEN WORKER PLASMA HEPATIC FUNCTION PANEL Routine 03/15/2016 7:14 PM MARKET GARDEN WORKER PLASMA BASIC METABOLIC PANEL Routine 03/15/2016 7:14 PM MARKET GARDEN WORKER BLOOD CELL COUNT (CBC) Routine 03/15/2016 7:14 PM MARKET GARDEN WORKER BLOOD CELL MORPHOLOGIC EXAM Routine 03/15/2016 7:14 PM MARKET GARDEN WORKER BLOOD GLUCOSE, POC Routine 03/15/2016 6: 14 PM MARKET GARDEN WORKER documented in this encounter Results * DISCHARGE LABORATORY CUMULATIVE REPORT (03/16/2016) Narrative 03/16/2016 Ordered by an unspecified provider. us Historical Provider LAB BLOOD ORDERABLES Deann l Result * XR Chest Pa Lateral 2 Views (03/15/2016 10:45 PM MARKET GARDEN WORKER) Anatomical Region Laterality Modality Body, Chest N/A Radiographic Lizeth ging 03/15/2016 10:4 5 PM MARKET GARDEN WORKER Narrative 03/16/2016 10:30 AM MARKET GARDEN WORKER Avery LAM M.D. FINAL REPORT The radiology attending physician has personally reviewed this study, and has reviewed and/or edited this written report and agrees with it. ACC# ??Date Time ??Exam [id number] Mar 15, 2016 22:45:00 [id number] Chest 2 views Frontl & Lat [id number] Mar 15, 2016 22:45:00 [id number] Abdmn wi Decub &/or Erect EXAMINATION: ?? [...] BETH M.D. on Mar 16 2016 10:30A [id number] Procedure Note Provider, MD Tyler - 09/30/2016 CECELIA IGNACIA, M.D. DAHLIA FAGE, M.D. FINAL REPORT The radiology attending physician has personally reviewed this study, and has reviewed and/or edited this written report and agrees with it. ACC# Date Time Exam [id number] Mar 15, 2016 22:45:00 [id number] Chest 2 views Frontl & Lat [id number] Mar 15, 2016 22:45:00 93431 Abdmn wi Decub &/or Erect EXAMINATION: 1. [...] BETH M.D. on Mar 16 2016 10:30A [id number] us Historical Provider MD GARCIA XR PROCEDURES Final R esult * XR Abdomen 2 VW (03/15/2016 10:45 PM MARKET GARDEN WORKER) Anatomical Region Laterality Modality Body N/A Radiographic Lizeth ging 03/15/2016 10:4 5 PM MARKET GARDEN WORKER Narrative 03/16/2016 10:30 AM MARKET GARDEN WORKER Avery LAM M.D. FINAL REPORT The radiology attending physician has personally reviewed this study, and has reviewed and/or edited this written report and agrees with it. ACC# ??Date Time ??Exam [id number] Mar 15, 2016 22:45:00 [id number] Chest 2 views Frontl & Lat [id number] Mar 15, 2016 22:45:00 [id number] Abdmn wi Decub &/or Erect EXAMINATION: ?? [...] BETH M.D. on Mar 16 2016 10:30A [id number] Procedure Note Provider, MD Tyler - 08/30/2016 Avery LAM M.D. FINAL REPORT The radiology attending physician has personally reviewed this study, and has reviewed and/or edited this written report and agrees with it. ACC# Date Time Exam [id number] Mar 15, 2016 22:45:00 [id number] Chest 2 views Frontl & Lat [id number] Mar 15, 2016 22:45:00 13685 Abdmn wi Decub &/or Erect EXAMINATION: 1. [...] BETH M.D. on Mar 16 2016 10:30A [id number] Historical Provider IMG XR PROCEDURES Final R esult * Serum thyroid-stimulating hormone (TSH) (03/15/2016 7:14 PM MARKET GARDEN WORKER) Pathologist [facility] TSH 0.88 0.30 - 4.20 mcIUnits/m l CDR HISTORICAL RESULTS Comment: Interpretive Data Hyperthyroid: ??<0.1 mcIUnit/mL Hypothyroid: ??>12.0 mcIUnit/mL Current interpretive data was last revised on 00. Serum 03/15/2016 7:14 PM MARKET GARDEN WORKER Result [facility] Cira Castro MD LAB BLOOD ORDERABL ES Final Result Performing Organization Address [facility] de Phone Number CDR HISTORICAL RESULTS * Plasma hepatic function panel (03/15/2016 7:14 PM MARKET GARDEN WORKER) [facility] Protein, pl 8.1 6.5 - 8.5 g/dl [...] CDR HISTORICAL RESULTS Plasma 03/15/2016 7:14 PM MARKET GARDEN WORKER Result [facility] Cira Castro MD LAB BLOOD ORDERABL ES Final Result Performing Organization Address [facility] Co de Phone Number CDR HISTORICAL RESULTS * Plasma basic metabolic panel (03/15/2016 7:14 PM MARKET GARDEN WORKER) Sodium 141 135 - 145 mmol/L CDR [...] CDR HISTORICAL RESULTS Plasma 03/15/2016 7:14 PM MARKET GARDEN WORKER Cira Castro MD LAB BLOOD ORDERABL ES Final Result Performing Organization Address [facility] Phone Number [facility] HISTORICAL RESULTS * Serum troponin I (03/15/2016 7:14 PM MARKET GARDEN WORKER) Troponin I <0.03 0.00 - 0.03 ng/ml CDR HISTORICAL RESULTS Comment: Interpretive Data Serial determinations are recommended for the diagnosis of myocardial infarction (Third [place] Definition of Myocardial Infarction. ??J Am Wang Cardiol 2012;60:1581-98). Current interpretive data was last revised on 13. Serum 03/15/2016 7:14 PM MARKET GARDEN WORKER Cira Castro MD LAB BLOOD ORDERABL ES Final Result Performing Organization Address [facility] de Phone Number CDR HISTORICAL RESULTS * Serum lipase (03/15/2016 7:14 PM MARKET GARDEN WORKER) Lip 37 10 - 99 Units/L CDR HISTORICAL RESULTS Serum 03/15/2016 7:14 PM MARKET GARDEN WORKER Cira Castro MD LAB BLOOD ORDERABL ES Final Result Performing Organization Address [facility] de Phone Number CDR HISTORICAL RESULTS * (ABNORMAL) Blood cell count (CBC) (03/15/2016 7:14 PM MARKET GARDEN WORKER) WBC 10.7(H) 3.8 - 9.9 K/cumm CDR [...] RESULTS Blood specimen (specimen) 03/15/2016 7:14 PM MARKET GARDEN WORKER Cira Castro MD LAB BLOOD ORDERABL ES Final Result CDR HISTORICAL RESULTS * (ABNORMAL) Blood cell morphologic exam (03/15/2016 7:14 PM MARKET GARDEN WORKER) Pathologist [facility] Neutrophils 67.6 % CDR HIST ORICAL [...] RESULTS Blood specimen (specimen) 03/15/2016 7:14 PM MARKET GARDEN WORKER Cira Castro MD LAB BLOOD ORDERABL ES Final Result Performing Organization Address City/[facility] Co de Phone Number CDR HISTORICAL RESULTS * Blood glucose, POC (03/15/2016 6:14 PM MARKET GARDEN WORKER) Pathologist [facility] Glucose, POC, bld 121 70 - 199 mg/dl CDR HISTORICAL RESULTS Blood specimen (specimen) 03/15/2016 6:14 PM MARKET GARDEN WORKER Historical Provider LAB BLOOD ORDERABLES Deann l Result Performing Organization Address [facility] Co de Phone Number CDR HISTORICAL RESULTS documented in this encounter Visit Diagnoses Diagnosis Procedure not carried out because of patient's decision Surgical or other procedure not carried out because of patient's decision documented in this encounter Care Teams Electronic Technologist Relationship Specialty Start Date End Date Antoinette Zhu MD [address] [address] PCP - General 08/01/13 07/26/16 documented as of this encounter
--- OUTSIDE RECORDS SUMMARY | 2024-04-26 09:35 | XMS_ITS | Encounter Summary ---
Author Organization [facility] Facility Care Team Providers Care Stone Hand Name Role Phone Antoinette Zhu MD Primary Care Provider [phone] Encounter Details Date Type Department Care Team (Latest Contact Info) Description 01/26/2015 2:45 PM CDT - 01/26/2015 4:00 PM T Hospital Encounter [facility] LEY[place], [place] [address] [place] [id number] Nondisplaced fracture of fifth metatarsal bone, left foot, initial encounter for closed fracture Social History Tobacco Use Types Packs/Day Years Used Date Smoking Tobacco: Former Alcohol Use Standard Drinks/Week Comments No 0 (1 standard drink = 0.6 oz pur e alcohol) Comments Unknown Sex and Gender Information Value Date Recorded Sex Assigned at Not on file Legal Sex Female 12:24 AM SERVER SYSTEMS ADMINISTRATOR Gender Identity Not on file Sexual [...] M.D. FINAL REPORT ACC# ??Date Time ??Exam [id number] Jan 26, 2015 16:16:00 [id number] Ankle Complt. min 3 views L EXAMINATION: [...] VINCENT M.D. on Jan 26 2015 ??4:48P [id number] Procedure Note Provider, Historical, - 08/12/2016 JEFFERSON VINCENT M.D. FINAL REPORT ACC# Date Time Exam [id number] Jan 26, 2015 16:16:00 [id number] Ankle Complt. min 3 views L EXAMINATION: [...] VINCENT M.D. on Jan 26 2015 4:48P [id number] us Historical Provider IMG XR PROCEDURES Final R esult * XR Foot 3+ Vw (01/26/2015 2:56 PM CDT) Anatomical Region Laterality Modality N/A Radiographic Lizeth ging 01/26/2015 2:56 PM CDT Narrative 01/26/2015 3:00 PM CDT JEFFERSON VINCENT M.D. FINAL REPORT ACC# ??Date Time ??Exam [id number] Jan 26, 2015 14:56:00 [id number] Foot Complt. min 3 views L EXAMINATION: [...] VINCENT M.D. on Jan 26 2015 ??3:00P [id number] Procedure Note Provider, MD Tyler - 08/12/2016 JEFFERSON VINCENT M.D. FINAL REPORT ACC# Date Time Exam [id number] Jan 26, 2015 14:56:00 [id number] Foot Complt. min 3 views L EXAMINATION: [...] VINCENT M.D. on Jan 26 2015 3:00P [id number] Historical Provider MD GARCIA XR PROCEDURES Final R esult documented in this encounter Visit Diagnoses Diagnosis Nondisplaced fracture of fifth metatarsal bone, left foot, initial encounter for closed fracture documented in this encounter Care Teams Stone Hand Relationship Specialty Start Date End Date Antoinette Zhu MD [address] [place] [id number] PCP - General 08/01/13 07/26/16 documented as of this encounter
--- OUTSIDE RECORDS SUMMARY | 2024-04-26 09:35 | XMS_ITS | Encounter Summary ---
Author Organization [facility] Facility Care Team Providers Care Elementary Math Tutor Name Role Phone Antoinette Zhu MD Primary Care Provider [phone] Encounter Details Date Type Department Care Team (Late st Contact Info) Description 04/27/2016 12:00 PM AUGER SUPERVISOR - 04/27/2016 11:59 PM [facility] Hospital Encounter [facility] Khris Arthur MD [address] [facility] [address] [place] [address] Malignant neoplasm of overlapping sites of left female breast (CMS/HCC) Social History Tobacco Use Types Packs/Day Years Used Date Smoking Tobacco: Former Alcohol Use Standard Drinks/Week Comments No 0 (1 standard drink = 0.6 oz pur e alcohol) Comments Unknown Sex and Gender Information Value Date Recorded Sex Assigned at Not on file Legal Sex Female 12:24 AM AUGER SUPERVISOR Gender Identity Not on file Sexual [...] COMPREHENSIVE METABOLIC PANEL Routine 04/27/2016 12:12 PM AUGER SUPERVISOR BLOOD CELL COUNT (CBC) Routine 7 12:12 PM AUGER SUPERVISOR BLOOD CELL MORPHOLOGIC EXAM Routine 04/27/2016 12:12 PM AUGER SUPERVISOR DISCHARGE LABORATORY CUMULATIVE REPORT 04/27/2016 documented in this encounter Results * Plasma comprehensive metabolic panel (04/27/2016 12:12 PM AUGER SUPERVISOR) Sodium 136 135 - 145 mmol/L CDR [...] HISTORICAL RESULTS Plasma 04/27/2016 12:1 2 PM AUGER SUPERVISOR Khris Arthur MD LAB BLOOD ORDERABLES Final Result Performing Organization Address [facility] de Phone Number CDR HISTORICAL RESULTS * (ABNORMAL) Blood cell count (CBC) (04/27/2016 12:12 PM AUGER SUPERVISOR) WBC 9.8 3.8 - 9.9 K/cumm CDR [...] RESULTS Blood specimen (specimen) 04/27/2016 12:12 PM AUGER SUPERVISOR Khris Arthur MD LAB BLOOD ORDERABLES Final Result Performing Organization Address [facility] Co de Phone Number CDR HISTORICAL RESULTS * Blood cell morphologic exam (04/27/2016 12:12 PM AUGER SUPERVISOR) Neutrophils 65.5 % CDR HIST ORICAL RESULTS [...] RESULTS Blood specimen (specimen) 04/27/2016 12:12 PM AUGER SUPERVISOR Khris Arthur MD LAB BLOOD ORDERABLES Final Result CDR HISTORICAL RESULTS * DISCHARGE LABORATORY CUMULATIVE REPORT (04/27/2016) Narrative 04/27/2016 Ordered by an unspecified provider. Historical Provider LAB BLOOD ORDERABLES Deann l Result documented in this encounter Visit Diagnoses Diagnosis Malignant neoplasm of overlapping sites of left female breast (HCC) documented in this encounter Care Teams Elementary Math Tutor Relationship Specialty Start Date End Date Antoinette Zhu MD [address] [address] PCP - General 08/01/13 07/26/16 documented as of this encounter
--- OUTSIDE RECORDS SUMMARY | 2024-04-26 09:36 | XMS_ITS | Encounter Summary ---
Author Organization [facility] Facility Care Team Providers Care Bell Tier Name Role Phone Antoinette Zhu MD Primary Care Provider [phone] Encounter Details Date Type Department Care Team (Late st Contact Info) Description 11/21/2014 - 11/21/2014 11:59 PM CDT Hospital Encounter [facility] Félix Arthur MD [address] [facility] [address] [place] [address] Malignant neoplasm of breast (female) (CMS/HCC) Social History Tobacco Use Types Packs/Day Years Used Date Smoking Tobacco: Former Alcohol Use Standard Drinks/Week Comments No 0 (1 standard drink = 0.6 oz pur e alcohol) Comments Unknown Sex and Gender Information Value Date Recorded Sex Assigned at Not on file 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 ACC# ??Date Time ??Exam [id number] Nov 21, 2014 13:20:00 80827 Chest 1 view Frontal EXAMINATION: ?? Chest [...] ADEN M.D. on Nov 21 2014 ??7:45P [id number] Procedure Note Provider, MD Tyler - 08/12/2016 LING ADEN M.D. KRISTINE COOPER M.D. FINAL REPORT The radiology attending physician has personally reviewed this study, and has reviewed and/or edited this written report and agrees with it. ACC# Date Time Exam [id number] Nov 21, 2014 13:20:00 09582 Chest 1 view Frontal EXAMINATION: Chest one [...] ADEN M.D. on Nov 21 2014 7:45P [id number] Historical Provider IMG XR PROCEDURES Final R esult documented in this encounter Visit Diagnoses Diagnosis Malignant neoplasm of breast (female) (HCC) Malignant neoplasm of breast (female), unspecified site documented in this encounter Care Teams Bell Tier Relationship Specialty Start Date End Date Antoinette Zhu MD [address] [address] PCP - General 08/01/13 07/26/16 documented as of this encounter
--- OUTSIDE RECORDS SUMMARY | 2024-04-26 09:36 | XMS_ITS | Encounter Summary ---
Author Organization [facility] Facility Care Team Providers Care Echo Vascular Technologist Name Role Phone Antoinette Zhu MD Primary Care Provider [phone] Encounter Details Date Type Department Care Team (Late st Contact Info) Description 11/16/2014 10:57 PM CDT - 11/18/2014 1:35 PM T Hospital Encounter [facility] Mohini Cruz MD [address] [address] Khris Arthur MD [facility] [address] [address] Cellulitis and abscess of trunk; Malignant neoplasm [...] on file Legal Sex Female 12:24 AM INTERVENTIONAL PHYSIATRIST Gender Identity Not on file Sexual Orientation [...] BLOOD ORDERABLES Final Result Performing Organization Address [facility] [[email or web address]] Co de Phone Number HISTORICAL RESULTS * Blood glucose, POC (11/18/2014 8:02 AM CDT) Glucose, POC, bld 131 70 - 199 mg/dl HISTORICAL RESULTS Blood specimen (specimen) 11/18/2014 8:02 AM CDT Mohini Oconnor MD LAB BLOOD ORDERABLES Final Result Performing Organization Address [facility]/ZIP Co de Phone Number HISTORICAL RESULTS [...] BLOOD ORDERABLES Final Result Performing Organization Address [facility] de Phone Number HISTORICAL RESULTS * Blood glucose, POC (11/17/2014 6:19 PM CDT) Glucose, POC, bld 145 70 - 199 mg/dl HISTORICAL RESULTS Blood specimen (specimen) 11/17/2014 6:19 PM CDT Mohini Oconnor MD LAB BLOOD ORDERABLES Final Result Performing Organization Address [facility] de Phone Number HISTORICAL RESULTS * Blood glucose, POC (11/17/2014 11:35 AM CDT) Glucose, POC, bld 103 70 - 199 mg/dl HISTORICAL RESULTS Blood specimen (specimen) 11/17/2014 11:35 AM CDT Mohini Oconnro MD LAB BLOOD ORDERABLES Final Result Performing Organization Address [facility] Phone Number HISTORICAL RESULTS * Urinalysis (11/17/2014 [...] BLOOD ORDERABLES Final Result Performing Organization Address [facility] de Phone Number HISTORICAL RESULTS * Herpes [...] requested by calling the Virology Laboratory at [phone]. ??In validation testing performed at [facility], the sensitivity of the assay [...] and it's performance characteristics determined by the [facility] Virology Laboratory. ??It has not [...] BLOOD ORDERABLES Final Result Performing Organization Address [facility] Phone Number HISTORICAL RESULTS * Plasma phosphorus (11/17/2014 4:02 AM CDT) Phosphorus, pl 3.5 2.3 - 4.3 mg/dl HISTORICAL RESULTS Plasma 11/17/2014 4:02 AM CDT Benja Boyd MD LAB BLOOD ORDERABLES Final Result Performing Organization Address [facility] Phone Number HISTORICAL RESULTS * Serum magnesium (11/17/2014 4:02 AM CDT) Magnesium 1.8 1.4 - 2.5 mg/dl HISTORICAL RESULTS Serum 11/17/2014 4:02 AM CDT Benja Boyd MD LAB BLOOD ORDERABLES Final Result Performing Organization Address [facility] Phone Number HISTORICAL RESULTS * Blood glucose, POC (11/17/2014 12:10 AM CDT) Glucose, POC, bld 106 70 - 199 mg/dl HISTORICAL RESULTS Blood specimen (specimen) 11/17/2014 12:10 AM CDT Khris Arthur MD LAB BLOOD ORDERABLES Final Result Performing Organization Address [facility] Phone Number HISTORICAL RESULTS * All Microbiology Report Section (11/17/2014 12:00 AM CDT) 11/17/2014 Narrative HISTORICAL RESULTS - 11/18/2014 3:36 PM CDT ? [facility] [address] [facility] [place] ?[place], [place] [address] ? Patient Name: ??MOHSEN SALAZAR ? Med Rec Number: [id number] ? Fin Number: ?[id number] ? Date: ?1955 ? Sex/Age: ? Female 59 years ? Admit Date: ?11/16/2014 ? Discharge Date: 11/18/2014 ? Doctor: ?Jerson , Khris O ? Facility: ?[facility] ? Location: ?[address] [address] ?* Abnormal ??A Alert ??f Footnote [...] ? ORDER COMMENTS ? (1)Testing performed by: [facility], [place] ? [place] [address] ?* * * ??Interpretive Results ??* * * ? (1)The HSV PCR assay used to test this specimen detects both HSV ? type 1 and HSV type 2. ??When necessary, the HSV type on a ? positive specimen can be requested by calling the Virology ? Laboratory at [phone]. ??In validation testing performed at ? [facility], the sensitivity of the assay [...] ? it's performance characteristics determined by the [place] ? [facility] Virology Laboratory. ??It has not been ? cleared nor approved by the U. S. Food and Drug Administration. ? Current interpretive data was last revised on 05. ? Historical Provider LAB MICROBIOLOGY - GENERA L ORDERABLES Final Result Performing Organization Address [facility] de Phone Number HISTORICAL RESULTS * Aerobic [...] L ORDERABLES Final Result Performing Organization Address [facility] [[email or web address]] Co de Phone Number HISTORICAL RESULTS * CHEST RADIOGRAPHY, FRONTAL (AP), LATERAL (11/16/2014 9:33 PM CDT) Anatomical Region Laterality Modality N/A Radiographic Lizeth ging 11/16/2014 9:33 PM CDT Narrative 11/17/2014 11:30 AM CDT Avery LAST M.D. FINAL REPORT The radiology attending physician has personally reviewed this study, and has reviewed and/or edited this written report and agrees with it. ACC# ??Date Time ??Exam [id number] Nov 16, 2014 21:33:00 79543 Chest 2 views Frontl & Lat EXAMINATION: [...] BENEDICT M.D. on Nov 17 2014 11:30A [id number] Procedure Note Provider, MD Tyler - 08/12/2016 MERVAT BENEDICT M.D. JO BRONSON M.D. FINAL REPORT The radiology attending physician has personally reviewed this study, and has reviewed and/or edited this written report and agrees with it. ACC# Date Time Exam [id number] Nov 16, 2014 21:33:00 [id number] Chest 2 views Frontl & Lat EXAMINATION: [...] BENEDICT M.D. on Nov 17 2014 11:30A [id number] us Historical Provider IMG XR PROCEDURES Final [...] organism identification may be performed using the [employer] Nanosphere Gram Positive Blood Culture Assay. ??The Nanosphere assay detects microbial DNA in positive blood culture broth via hybridization of target DNA to capture oligonucleotides on a microarray. ??This assay has been cleared by the [place] Food and Drug Administration and its performance characteristics have been verified by the [facility]. Current Interpretive Data was last [...] organism identification may be performed using the [employer] Nanosphere Gram Positive Blood Culture Assay. ??The Nanosphere assay detects microbial DNA in positive blood culture broth via hybridization of target DNA to capture oligonucleotides on a microarray. ??This assay has been cleared by the [place] Food and Drug Administration and its performance characteristics have been verified by the [facility]. Current Interpretive Data was last [...] 11/16/2014 8:07 PM CDT Felicitas DTye Counts GROUNDSKEEPING MAINTENANCE LAB BLOOD ORDERABLES Final Re sult HISTORICAL [...] (specimen) 11/16/2014 8:07 PM CDT Felicitas Waddell GROUNDSKEEPING MAINTENANCE LAB BLOOD ORDERABLES Final Re sult Performing Organization Address [facility] [[email or web address]] Co de Phone Number HISTORICAL RESULTS * Blood glucose, POC (11/16/2014 7:57 PM CDT) [facility] Glucose, POC, bld 110 70 - 199 mg/dl HISTORICAL RESULTS Blood specimen (specimen) 11/16/2014 7:57 PM CDT Historical Provider LAB BLOOD ORDERABLES Deann l Result Performing Organization Address [facility] [[email or web address]] Co de Phone Number HISTORICAL RESULTS * All Microbiology Report Section (11/16/2014 12:00 AM CDT) 11/16/2014 Narrative HISTORICAL RESULTS - 11/21/2014 10:01 AM CDT ? [facility] ?[address] [facility] [place] ?[place], [place] [address] ? Patient Name: ??HILLMER, MOHSEN M ? Med Rec Number: [id number] ? Fin Number: ?[id number] ? Date: ?1955 ? Sex/Age: ? Female 59 years ? Admit Date: ?11/16/2014 ? Discharge Date: 11/18/2014 ? Doctor: ?Ademuyiwa , Foluso O ? Facility: ?[facility] ? Location: ?[address]00 [address] ?* Abnormal ??A Alert ??f Footnote [...] RESULTS - 11/22/2014 6:28 AM CDT ? [facility] ?[address] [facility] [place] ?[place], [place] [address] ? Patient Name: ??MOHSEN SALAZAR ? Med Rec Number: [id number] ? Fin Number: ?[id number] ? Date: ?1955 ? Sex/Age: ? Female 59 years ? Admit Date: ?11/16/2014 ? Discharge Date: 11/18/2014 ? Doctor: ?Ademuyiwa , Morroo O ? Facility: ?[facility] ? Location: ?7900 [address] ?* Abnormal ??A Alert ??f Footnote [...] identification may be ? performed using the [employer] Nanosphere Gram Positive Blood ? Culture Assay. ??The Nanosphere assay detects microbial DNA in ? positive blood culture broth via hybridization of target DNA to ? capture oligonucleotides on a microarray. ??This assay has been ? cleared by the [place] Food and Drug Administration and ? its performance characteristics have been verified by the ? [facility].Current ? Interpretive Data was last revised on 2013. ? us Historical Provider MD LAB MICROBIOLOGY - GENERA L ORDERABLES Final Result HISTORICAL RESULTS * All Microbiology Report Section (11/16/2014 12:00 AM CDT) 11/16/2014 Narrative HISTORICAL RESULTS - 11/22/2014 6:28 AM CDT ? [facility] ?[address] [facility] [place] ?[place], [place] [address] ? Patient Name: ??MOHSEN SALAZAR ? Med Rec Number: [id number] ? Fin Number: ?[id number] ? Date: ?1955 ? Sex/Age: ? Female 59 years ? Admit Date: ?11/16/2014 ? Discharge Date: 11/18/2014 ? Doctor: ?Khris Arthur ? Facility: ?[facility] ? Location: ?7900 [address] ?* Abnormal ??A Alert ??f Footnote [...] identification may be ? performed using the [employer] Nanosphere Gram Positive Blood ? Culture Assay. ??The Nanosphere assay detects microbial DNA in ? positive blood culture broth via hybridization of target DNA to ? capture oligonucleotides on a microarray. ??This assay has been ? cleared by the [place] Food and Drug Administration and ? its performance characteristics have been verified by the ? [facility].Current ? Interpretive Data was last [...] nails documented in this encounter Care Teams Echo Vascular Technologist Relationship Specialty Start Date End Date Antoinette Zhu MD [address] [address] PCP - General 08/01/13 07/26/16 documented as of this encounter
--- OUTSIDE RECORDS SUMMARY | 2024-04-26 09:36 | XMS_ITS | Encounter Summary ---
Author Organization [facility] Facility Care Team Providers Care Electrical Drafter Name Role Phone Antoinette Zhu MD Primary Care Provider [phone] Encounter Details Date Type Department Care Team (Late st Contact Info) Description 12/05/2014 - 12/05/2014 11:59 PM CDT Hospital Encounter [facility] Félix Arthur MD [address] [facility] [address] [place] [address] Fitting and adjustment of vascular catheter; Malignant neoplasm of breast (female) (CMS/HCC) Social History Tobacco Use Types Packs/Day Years Used Date Smoking Tobacco: Former Alcohol Use Standard Drinks/Week Comments No 0 (1 standard drink = 0.6 oz pur e alcohol) Comments Unknown Sex and Gender Information Value Date Recorded Sex Assigned at Not on file 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 ACC# ??Date Time ??Exam [id number] Dec 05, 2014 14:02:00 55411 Exchange PICC Line [id number] Dec 05, 2014 14:02:00 01526 Fluoro Devin Accs R EXAMINATION: ?NONTUNNELED CENTRAL [...] was obtained. ??Prior to beginning the procedure, [place] Protocol was used to confirm the patient's [...] AIKEN M.D. on Dec 05 2014 ??4:23P [id number] Procedure Note Provider, MD Tyler - 08/12/2016 PAUL AIKEN M.D. MARIELA BATES M.D. FINAL REPORT The radiology attending physician has personally reviewed this study, and has reviewed and/or edited this written report and agrees with it. ACC# Date Time Exam [id number] Dec 05, 2014 14:02:00 02920 Exchange PICC Line [id number] Dec 05, 2014 14:02:00 07221 Fluoro Devin Accs R EXAMINATION: NONTUNNELED CENTRAL [...] was obtained. Prior to beginning the procedure, [place] Protocol was used to confirm the patient's [...] AIKEN M.D. on Dec 05 2014 4:23P [id number] us Historical Provider MD GARCIA IR PROCEDURES [...] agrees with it. ACC# ??Date Time ??Exam [id number] Dec 05, 2014 14:02:00 53112 Exchange PICC Line [id number] Dec 05, 2014 14:02:00 44095 Fluoro Devin Accs R EXAMINATION: ?NONTUNNELED CENTRAL [...] was obtained. ??Prior to beginning the procedure, [place] Protocol was used to confirm the patient's [...] AIKEN M.D. on Dec 05 2014 ??4:23P [id number] Procedure Note Provider, MD Tyler - 08/12/2016 PAUL AIKEN M.D. MARIELA BATES M.D. FINAL REPORT The radiology attending physician has personally reviewed this study, and has reviewed and/or edited this written report and agrees with it. ACC# Date Time Exam [id number] Dec 05, 2014 14:02:00 99486 Exchange PICC Line [id number] Dec 05, 2014 14:02:00 89111 Fluoro Devin Accs R EXAMINATION: NONTUNNELED CENTRAL [...] was obtained. Prior to beginning the procedure, [place] Protocol was used to confirm the patient's [...] AIKEN M.D. on Dec 05 2014 4:23P [id number] Historical Provider IMMichael XR PROCEDURES Final R esult documented in this encounter Visit Diagnoses Diagnosis Fitting and adjustment of vascular catheter Malignant neoplasm of breast (female) (HCC) Malignant neoplasm of breast (female), unspecified site documented in this encounter Care Teams Electrical Drafter Relationship Specialty Start Date End Date Antoinette Zhu MD [address] [address] PCP - General 08/01/13 07/26/16 documented as of this encounter
--- OUTSIDE RECORDS SUMMARY | 2024-04-26 09:36 | XMS_ITS | Encounter Summary ---
Author Organization [facility] Facility Care Team Providers Care Route Clerk Name Role Phone Antoinette Zhu MD Primary Care Provider [phone] [phone] Encounter Details Date Type Department Care Team (Latest Contact Info) Description 12/08/2014 5:31 AM CDT - 12/11/2014 2:39 PM [facility] Hospital Encounter [facility] Local infection due to central venous catheter; Cellulitis and abscess of upper arm and forearm; Malignant neoplasm of breast (female) (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 de Phone Number HISTORICAL RESULTS * Blood glucose, POC (12/09/2014 4:18 PM CDT) Glucose, POC, bld 146 70 - 199 mg/dl HISTORICAL RESULTS Blood specimen (specimen) 12/09/2014 4:18 PM CDT Roseanne Baron MD LAB BLOOD ORDERA BLES Final Result Performing Organization Address [facility] Co de Phone Number HISTORICAL RESULTS * Blood glucose, POC (12/09/2014 12:20 PM CDT) Glucose, POC, bld 139 70 - 199 mg/dl HISTORICAL RESULTS Blood specimen (specimen) 12/09/2014 12:20 PM CDT Roseanne Baron MD LAB BLOOD ORDERA BLES Final Result Performing Organization Address [facility] Co de Phone Number HISTORICAL RESULTS * Blood glucose, POC (12/09/2014 7:38 AM CDT) Glucose, POC, bld 115 70 - 199 mg/dl HISTORICAL RESULTS Blood specimen (specimen) 12/09/2014 7:38 AM CDT Roseanne Baron MD LAB BLOOD ORDERA BLES Final Result Performing Organization Address [facility] de Phone Number HISTORICAL RESULTS * Plasma [...] Final Resul t Performing Organization Address [facility] de Phone Number HISTORICAL RESULTS * Plasma [...] Final Resul t Performing Organization Address [facility] de Phone Number HISTORICAL RESULTS * Plasma [...] updated copy of the Tool Book at [email or web address]/pharmacy.nsf Current Interpretive Data was last revised 2011. Plasma 12/09/2014 12:0 3 AM CDT Jam Colbert MD LAB BLOOD ORDERABLES Final Resul t Performing Organization Address [facility] de Phone Number HISTORICAL RESULTS * (ABNORMAL) Blood erythrocyte sedimentation rate (ESR) (12/09/2014 12:03 AM CDT) Erythrocyte sedimentation rate 49.0(H) 0.0 - 35.0 mm/hr HISTORICAL RESULTS Blood specimen (specimen) 12/09/2014 12:03 AM CDT Jam Colbert MD LAB BLOOD ORDERABLES Final Resul t Performing Organization Address [facility] de Phone Number HISTORICAL RESULTS * Blood glucose, POC (12/08/2014 9:30 PM CDT) Glucose, POC, bld 110 70 - 199 mg/dl HISTORICAL RESULTS Blood specimen (specimen) 12/08/2014 9:30 PM CDT Roseanne Baron MD LAB BLOOD ORDERA BLES Final Result Performing Organization Address [facility] de Phone Number HISTORICAL RESULTS * Blood [...] agrees with it. ACC# ??Date Time ??Exam [id number] Dec 08, 2014 14:22:00 [id number] Extremity Sono Limited R ACC# ??Date Time ??Exam [id number] Dec 08, 2014 14:22:00 44447 Extremity Sono Limited R EXAMINATION: ?Right extremity [...] agrees with it. ACC# Date Time Exam [id number] Dec 08, 2014 14:22:00 39515 Extremity Sono Limited R ACC# Date Time Exam [id number] Dec 08, 2014 14:22:00 40949 Extremity Sono Limited R EXAMINATION: Right extremity [...] agrees with it. ACC# ??Date Time ??Exam [id number] Dec 07, 2014 23:20:00 00452 Chest 2 views Frontl & Lat EXAMINATION: [...] TORRES M.D. on Dec 08 2014 11:11A [id number] Procedure Note Provider, MD Tyler - 08/12/2016 YESSY TORRES M.D. MARIELA BAE M.D. FINAL REPORT The radiology attending physician has personally reviewed this study, and has reviewed and/or edited this written report and agrees with it. ACC# Date Time Exam [id number] Dec 07, 2014 23:20:00 37455 Chest 2 views Frontl & Lat EXAMINATION: [...] TORRES M.D. on Dec 08 2014 11:11A [id number] Historical Provider IMG XR PROCEDURES Final R esult * Serum creatine kinase (CK) (12/07/2014 10:51 PM CDT) Pathologist [facility] CK 100 20 - 170 Units/L HISTORICAL RESULTS Serum 12/07/2014 10:5 1 PM CDT Robert Poole MD PhD LAB BLOOD ORDERABLE S Final Result Performing Organization Address City/State/[facility] Co de Phone Number HISTORICAL RESULTS * Plasma basic metabolic panel (12/07/2014 10:51 PM CDT) Pathologist [facility] Sodium 137 135 - 145 mmol/L HISTORICAL [...] ORDERABLES Deann l Result Performing Organization Address City/[facility] Co de Phone Number HISTORICAL RESULTS [...] home documented in this encounter Care Teams Route Clerk Relationship Specialty Start Date End Date Antoinette Zhu MD [address] [address] PCP - General 08/01/13 07/26/16 documented as of this encounter
--- OUTSIDE RECORDS SUMMARY | 2024-04-26 09:36 | XMS_ITS | Encounter Summary ---
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 Gender Identity Not on file Sexual [...] Final Result Performing Organization Address [facility]/ZIP Co de Phone Number HISTORICAL RESULTS * Plasma basic metabolic panel (11/26/2014 3:17 AM CDT) [facility] Sodium 135 135 - 145 mmol/L HISTORICAL [...] ORDERABLES Fin al Result Performing Organization Address [facility] de Phone Number HISTORICAL RESULTS * (ABNORMAL) Blood cell count (CBC) (11/26/2014 3:17 AM CDT) [facility] WBC 9.7 3.8 - 9.8 K/cumm HISTORICAL [...] specimen (specimen) 11/26/2014 3:17 AM CDT Result [facility] Lester Vegas MD PhD LAB BLOOD ORDERABLES Fin al Result Performing Organization Address [facility] de Phone Number HISTORICAL RESULTS * DISCHARGE LABORATORY CUMULATIVE REPORT (11/26/2014) Narrative 11/26/2014 Ordered by an unspecified provider. [facility] Provider LAB BLOOD ORDERABLES Deann l Result [...] ORDERABLES Fin al Result Performing Organization Address [facility] de Phone Number HISTORICAL RESULTS * Blood glucose, POC (11/25/2014 7:51 PM CDT) Glucose, POC, bld 113 70 - 199 mg/dl HISTORICAL RESULTS Blood specimen (specimen) 11/25/2014 7:51 PM CDT Gil Pruitt MD PhD LAB BLOOD ORDERABLE S Final Result Performing Organization Address [facility] de Phone Number HISTORICAL RESULTS * Blood glucose, POC (11/25/2014 5:07 PM CDT) Glucose, POC, bld 95 70 - 199 mg/dl HISTORICAL RESULTS Blood specimen (specimen) 11/25/2014 5:07 PM CDT Gil Pruitt MD PhD LAB BLOOD ORDERABLE S Final Result Performing Organization Address [facility] Phone Number HISTORICAL RESULTS * Fistulogram Abscess [...] agrees with it. ACC# ??Date Time ??Exam [id number] Nov 25, 2014 14:06:00 89238 Inj Sin/Abs,S&I [id number] Nov 25, 2014 14:06:00 75813 Inj Abscess Cat [id number] Nov 25, 2014 14:06:00 75642 Inj Sin/Abs,S&I [id number] Nov 25, 2014 14:06:00 87630 Inj Abscess Cat EXAMINATION: ?DRAINAGE CATHETER EVALUATION [...] procedure. TECHNIQUE: Prior to beginning the procedure, [place] Protocol was used to confirm the patient's identity and planned procedure. Fluoroscopy time has been recorded in the electronic medical record. After obtaining a store sales manager image, the right chest wall catheter was [...] questions arise, please contact us by calling [phone]. Requested By: LESTER VEGAS M.D. Dictated By: ?? TAHIR HUIZAR M.D. ??on Nov ??4 2014 ??3:51P This document has been electronically signed by: NAYELI SEGOVIA M.D. on Nov ??5 2014 ??9:21A [id number] Procedure Note Provider, MD Tyler - 08/12/2016 NAYELI SEGOVIA M.D. TAHIR HUIZAR M.D. FINAL REPORT The radiology attending physician has personally reviewed this study, and has reviewed and/or edited this written report and agrees with it. ACC# Date Time Exam [id number] Nov 25, 2014 14:06:00 32040 Inj Sin/Abs,S&I [id number] Nov 25, 2014 14:06:00 57954 Inj Abscess Cat [id number] Nov 25, 2014 14:06:00 10279 Inj Sin/Abs,S&I [id number] Nov 25, 2014 14:06:00 96634 Inj Abscess Cat EXAMINATION: DRAINAGE CATHETER EVALUATION [...] procedure. TECHNIQUE: Prior to beginning the procedure, [place] Protocol was used to confirm the patient's identity and planned procedure. Fluoroscopy time has been recorded in the electronic medical record. After obtaining a store sales manager image, the right chest wall catheter was [...] questions arise, please contact us by calling [phone]. Requested By: LESTER VEGAS M.D. Dictated By: TAHIR HUIZAR M.D. on Nov 25 2014 3:51P This document has been electronically signed by: NAYELI SEGOVIA M.D. on Nov 26 2014 9:21A [id number] us Historical Provider MD GARCIA IR PROCEDURES [...] agrees with it. ACC# ??Date Time ??Exam [id number] Nov 25, 2014 14:06:00 44223 Inj Sin/Abs,S&I [id number] Nov 25, 2014 14:06:00 23363 Inj Abscess Cat [id number] Nov 25, 2014 14:06:00 58532 Inj Sin/Abs,S&I [id number] Nov 25, 2014 14:06:00 26716 Inj Abscess Cat EXAMINATION: ?DRAINAGE CATHETER EVALUATION [...] procedure. TECHNIQUE: Prior to beginning the procedure, [place] Protocol was used to confirm the patient's identity and planned procedure. Fluoroscopy time has been recorded in the electronic medical record. After obtaining a store sales manager image, the right chest wall catheter was [...] questions arise, please contact us by calling [phone]. Requested By: LESTER VEGAS M.D. Dictated By: [...] agrees with it. ACC# Date Time Exam [id number] Nov 25, 2014 14:06:00 67904 Inj Sin/Abs,S&I [id number] Nov 25, 2014 14:06:00 34441 Inj Abscess Cat [id number] Nov 25, 2014 14:06:00 41728 Inj Sin/Abs,S&I [id number] Nov 25, 2014 14:06:00 43113 Inj Abscess Cat EXAMINATION: DRAINAGE CATHETER EVALUATION [...] procedure. TECHNIQUE: Prior to beginning the procedure, [place] Protocol was used to confirm the patient's identity and planned procedure. Fluoroscopy time has been recorded in the electronic medical record. After obtaining a store sales manager image, the right chest wall catheter was [...] questions arise, please contact us by calling [phone]. Requested By: LESTER VEGAS M.D. Dictated By: [...] agrees with it. ACC# ??Date Time ??Exam [id number] Nov 25, 2014 14:06:00 81627 Inj Sin/Abs,S&I [id number] Nov 25, 2014 14:06:00 89326 Inj Abscess Cat [id number] Nov 25, 2014 14:06:00 79944 Inj Sin/Abs,S&I [id number] Nov 25, 2014 14:06:00 27975 Inj Abscess Cat EXAMINATION: ?DRAINAGE CATHETER EVALUATION [...] procedure. TECHNIQUE: Prior to beginning the procedure, [place] Protocol was used to confirm the patient's identity and planned procedure. Fluoroscopy time has been recorded in the electronic medical record. After obtaining a store sales manager image, the right chest wall catheter was [...] questions arise, please contact us by calling [phone]. Requested By: LESTER VEGAS M.D. Dictated By: ?? TAHIR HUIZAR M.D. ??on Nov ??2014 ??3:51P This document has been electronically signed by: NAYELI SEGOVIA M.D. on Nov ??2014 ??9:21A Procedure Note Provider, MD Tyler - 08/12/2016 Avery MACDONALD M.D. FINAL REPORT The radiology attending physician has personally reviewed this study, and has reviewed and/or edited this written report and agrees with it. [facility]# Date Time Exam [id number] Nov 25, 2014 14:06:00 23172 Inj Sin/Abs,S&I [id number] Nov 25, 2014 14:06:00 73315 Inj Abscess Cat [id number] Nov 25, 2014 14:06:00 04880 Inj Sin/Abs,S&I [id number] Nov 25, 2014 14:06:00 50566 Inj Abscess Cat EXAMINATION: DRAINAGE CATHETER EVALUATION [...] procedure. TECHNIQUE: Prior to beginning the procedure, [place] Protocol was used to confirm the patient's identity and planned procedure. Fluoroscopy time has been recorded in the electronic medical record. After obtaining a store sales manager image, the right chest wall catheter was [...] questions arise, please contact us by calling [phone]. Requested By: LESTER VEGAS M.D. Dictated By: [...] agrees with it. ACC# ??Date Time ??Exam [id number] Nov 25, 2014 14:06:00 05004 Inj Sin/Abs,S&I [id number] Nov 25, 2014 14:06:00 69467 Inj Abscess Cat [id number] Nov 25, 2014 14:06:00 00712 Inj Sin/Abs,S&I [id number] Nov 25, 2014 14:06:00 24609 Inj Abscess Cat EXAMINATION: ?DRAINAGE CATHETER EVALUATION [...] procedure. TECHNIQUE: Prior to beginning the procedure, [place] Protocol was used to confirm the patient's identity and planned procedure. Fluoroscopy time has been recorded in the electronic medical record. After obtaining a store sales manager image, the right chest wall catheter was [...] questions arise, please contact us by calling [phone]. Requested By: LESTER VEGAS M.D. Dictated By: [...] agrees with it. ACC# Date Time Exam [id number] Nov 25, 2014 14:06:00 91287 Inj Sin/Abs,S&I [id number] Nov 25, 2014 14:06:00 77003 Inj Abscess Cat [id number] Nov 25, 2014 14:06:00 77899 Inj Sin/Abs,S&I [id number] Nov 25, 2014 14:06:00 94599 Inj Abscess Cat EXAMINATION: DRAINAGE CATHETER EVALUATION [...] procedure. TECHNIQUE: Prior to beginning the procedure, [place] Protocol was used to confirm the patient's identity and planned procedure. Fluoroscopy time has been recorded in the electronic medical record. After obtaining a store sales manager image, the right chest wall catheter was [...] questions arise, please contact us by calling [phone]. Requested By: LESTER VEGAS M.D. Dictated By: [...] count (CBC) (11/25/2014 12:31 AM CDT) Pathologist [facility] WBC 8.7 3.8 - 9.8 K/cumm HISTORICAL [...] ORDERABLES Fin al Result Performing Organization Address [facility] de Phone Number HISTORICAL RESULTS * Blood glucose, POC (11/24/2014 4:59 PM CDT) Glucose, POC, bld 104 70 - 199 mg/dl HISTORICAL RESULTS Blood specimen (specimen) 11/24/2014 4:59 PM CDT Result [facility] Gil Pruitt MD PhD LAB BLOOD ORDERABLE S Final Result Performing Organization Address [facility] de Phone Number HISTORICAL RESULTS * Blood glucose, POC (11/24/2014 11:56 AM CDT) Glucose, POC, bld 85 70 - 199 mg/dl HISTORICAL RESULTS Blood specimen (specimen) 11/24/2014 11:56 AM CDT Result [facility] Gil Pruitt MD PhD LAB BLOOD ORDERABLE S Final Result Performing Organization Address [facility] de Phone Number HISTORICAL RESULTS * Blood glucose, POC (11/24/2014 7:26 AM CDT) Glucose, POC, bld 75 70 - 199 mg/dl HISTORICAL RESULTS Blood specimen (specimen) 11/24/2014 7:26 AM CDT Result [facility] Gil Pruitt MD PhD LAB BLOOD ORDERABLE S Final Result Performing Organization Address [facility] de Phone Number HISTORICAL RESULTS * Blood glucose, POC (11/24/2014 2:51 AM CDT) Pathologist [facility] Glucose, POC, bld 127 70 - 199 mg/dl HISTORICAL RESULTS Blood specimen (specimen) 11/24/2014 2:51 AM CDT Gil Pruitt MD PhD LAB BLOOD ORDERABLE S Final Result Performing Organization Address [facility] de Phone Number HISTORICAL RESULTS * [...] L ORDERABLES Final Result Performing Organization Address [facility] de Phone Number HISTORICAL RESULTS * [...] agrees with it. ACC# ??Date Time ??Exam [id number] Nov 23, 2014 21:05:00 01549 Chest 2 views Frontl & Lat EXAMINATION: [...] SOW M.D. on Nov ??3 2014 ??5:59P [id number] Procedure Note Provider, Tyler, - 08/12/2016 MARLENY SOW M.D. NAYELI WHEELER M.D. FINAL REPORT The radiology attending physician has personally reviewed this study, and has reviewed and/or edited this written report and agrees with it. ACC# Date Time Exam [id number] Nov 23, 2014 21:05:00 61962 Chest 2 views Frontl & Lat EXAMINATION: [...] SOW M.D. on Nov 24 2014 5:59P [id number] us Historical Provider MD GARCIA XR PROCEDURES Final R esult * Serum troponin I (11/23/2014 8:13 PM CDT) Troponin I <0.03 0.00 - 0.03 ng/ml HISTORICAL RESULTS Comment: Interpretive Data Serial determinations are recommended for the diagnosis of myocardial infarction (Third [place] Definition of Myocardial Infarction. ??J Am Wang Cardiol 2012;60:1581-98). Current interpretive data was last revised on 13. Serum 11/23/2014 8:13 PM CDT us Gallo El MD LAB BLOOD ORDERABLES Fin al Result Performing Organization Address City/[facility] de Phone Number HISTORICAL RESULTS * [...] ORDERABLES Fin al Result Performing Organization Address City/[facility] Co de Phone Number HISTORICAL RESULTS * [...] ORDERABLES Fin al Result Performing Organization Address [facility] de Phone Number HISTORICAL RESULTS * Plasma phosphorus (11/23/2014 8:13 PM CDT) Pathologist [facility] Phosphorus, pl 4.0 2.3 - 4.3 mg/dl HISTORICAL RESULTS Plasma 11/23/2014 8:13 PM CDT Gallo El MD LAB BLOOD ORDERABLES Fin al Result Performing Organization Address [facility] de Phone Number HISTORICAL RESULTS * Serum magnesium (11/23/2014 8:13 PM CDT) Pathologist [facility] Magnesium 1.8 1.4 - 2.5 mg/dl HISTORICAL RESULTS Serum 11/23/2014 8:13 PM CDT Gallo El MD LAB BLOOD ORDERABLES Fin al Result Performing Organization Address [facility] de Phone Number HISTORICAL RESULTS * [...] ORDERABLES Fin al Result Performing Organization Address City/State/[facility] Co de Phone Number HISTORICAL RESULTS * Blood lactic acid (11/23/2014 8:13 PM CDT) Lactic acid 0.8 0.7 - 2.1 mmol/L HISTORICAL RESULTS Blood specimen (specimen) 11/23/2014 8:13 PM CDT Gallo El MD LAB BLOOD ORDERABLES Fin al Result HISTORICAL RESULTS * All Microbiology Report Section (11/23/2014 12:00 AM CDT) 11/23/2014 Narrative HISTORICAL RESULTS - 11/27/2014 1:01 PM CDT ? [facility] ?[facility] ?[place], [place] [address] ? Patient Name: ??MOHSEN MARQUES ? Med Rec Number: [id number] ? Fin Number: ?[id number] ? Date: ?1955 ? Sex/Age: ? Female 59 years ? Admit Date: ?11/23/2014 ? Discharge Date: 11/26/2014 ? Doctor: ?Medicine , ? Facility: ?[facility] ? Location: ?49ON [id number] [id number] ?* [...] RESULTS - 11/27/2014 1:01 PM CDT ? [facility] ?[facility] ?[place], [place] [address] ? Patient Name: ??MOHSEN MARQUES ? Med Rec Number: [id number] ? Fin Number: ?[id number] ? Date: ?1955 ? Sex/Age: ? Female 59 years ? Admit Date: ?11/23/2014 ? Discharge Date: 11/26/2014 ? Doctor: ?Medicine , ? Facility: ?[facility] ? Location: ?[facility] 4906 01 ?* Abnormal ??A Alert ??f [...] complication documented in this encounter Care Teams Manager Custom Relationship Specialty Start Date End Date Antoinette Zhu MD [address] [address] PCP - General 08/01/13 07/26/16 documented as of this encounter
--- OUTSIDE RECORDS SUMMARY | 2024-04-26 09:36 | XMS_ITS | Encounter Summary ---
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 ??J Am Wang Cardiol 2012;60:1581-98). Current interpretive data was last revised on 13. Serum 01/07/2015 2:05 AM CDT us Felicitas Joe Counts HORTICULTURAL THERAPIST LAB BLOOD ORDERABLES Final Re sult HISTORICAL [...] agrees with it. ACC# ??Date Time ??Exam [id number] Jan 06, 2015 23:46:[address] Chest with contrast EXAMINATION: ?? Computed [...] BETH M.D. on Jan 07 2015 11:07A [id number] Procedure Note Provider, MD Tyler - 08/12/2016 Avery LAM M.D. FINAL REPORT The radiology attending physician has personally reviewed this study, and has reviewed and/or edited this written report and agrees with it. ACC# Date Time Exam [id number] Jan 06, 2015 23:46:[address] Chest with contrast EXAMINATION: Computed tomography [...] BETH M.D. on Jan 07 2015 11:07A [id number] us Historical Provider MD GARCIA CT PROCEDURES Final R esult * CHEST RADIOGRAPHY, FRONTAL (AP), LATERAL (01/06/2015 10:14 PM CDT) Anatomical Region Laterality Modality N/A Radiographic Lizeth ging 01/06/2015 10:1 4 PM CDT Narrative 01/07/2015 11:07 AM CDT Avery ALM M.D. FINAL REPORT The radiology attending physician has personally reviewed this study, and has reviewed and/or edited this written report and agrees with it. ACC# ??Date Time ??Exam [id number] Jan 06, 2015 22:14:00 96459 Chest 2 views Frontl & Lat EXAMINATION: [...] BETH M.D. on Jan 07 2015 11:07A [id number] Procedure Note Provider, MD Tyler - 08/12/2016 Avery LAM M.D. FINAL REPORT The radiology attending physician has personally reviewed this study, and has reviewed and/or edited this written report and agrees with it. ACC# Date Time Exam [id number] Jan 06, 2015 22:14:00 21049 Chest 2 views Frontl & Lat EXAMINATION: [...] BETH M.D. on Jan 07 2015 11:07A [id number] Historical Provider IMG XR PROCEDURES Final R [...] troponin I (01/06/2015 8:25 PM CDT) Pathologist [facility] Troponin I <0.03 0.00 - 0.03 ng/ml HISTORICAL RESULTS Comment: Interpretive Data Serial determinations are recommended for the diagnosis of myocardial infarction (Third [place] Definition of Myocardial Infarction. ??J Am Wang [...] medications documented in this encounter Care Teams Cement Despatch Operator Relationship Specialty Start Date End Date Antoinette Zhu MD [address] [address] PCP - General 08/01/13 07/26/16 documented as of this encounter
--- OUTSIDE RECORDS SUMMARY | 2024-04-26 09:36 | XMS_ITS | Encounter Summary ---
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 ACC# ??Date Time ??Exam [id number] Dec 23, 2014 16:02:00 IVRFUout [id number] Outpt FU Simple ACC# ??Date Time ??Exam [id number] Dec 23, 2014 16:02:00 IVRFUout [id number] Outpt FU Simple EXAMINATION: ?INTERVENTIONAL RADIOLOGY FOLLOW-UP [...] agrees with it. ACC# Date Time Exam [id number] Dec 23, 2014 16:02:00 IVRFUout [id number] Outpt FU Simple ACC# Date Time Exam [id number] Dec 23, 2014 16:02:00 IVRFUout [id number] Outpt FU Simple EXAMINATION: INTERVENTIONAL RADIOLOGY FOLLOW-UP [...] 27 2014 8:51A Historical Provider MD GARCIA MA PROCEDURES Final R esult documented in this encounter Visit Diagnoses Diagnosis Encounter for fitting and adjustment of non-vascular catheter NEC Malignant neoplasm of breast (female) (HCC) Malignant neoplasm of breast (female), unspecified site Acquired absence of breast and absent nipple Acquired absence of breast and nipple Seroma complicating a procedure documented in this encounter Care Teams Information Broker Relationship Specialty Start Date End Date Antoinette Zhu MD [address] [address] PCP - General 08/01/13 07/26/16 documented as of this encounter
--- OUTSIDE RECORDS SUMMARY | 2024-04-26 09:36 | XMS_ITS | Encounter Summary ---
Author Organization [facility] Facility Care Team Providers Care Internal Medicine Physician Assistant Name Role Phone Antoinette Zhu MD Primary Care Provider [phone] [phone] Encounter Details Date Type Department Care Team (Late st Contact Info) Description 12/18/2014 1:30 AM CDT - 12/18/2014 2:30 PM CDT Hospital Encounter 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 Gender Identity Not on file Sexual Orientation [...] glucose, POC (12/18/2014 11:21 AM CDT) Pathologist [facility] Glucose, POC, bld 124 70 - 199 mg/dl HISTORICAL RESULTS Blood specimen (specimen) 12/18/2014 11:21 AM CDT Result [facility] Desean Raphael MD LAB BLOOD ORDERABLES Final Resul t HISTORICAL RESULTS * Blood glucose, POC (12/18/2014 8:10 AM CDT) Glucose, POC, bld 137 70 - 199 mg/dl HISTORICAL RESULTS Blood specimen (specimen) 12/18/2014 8:10 AM CDT Desean Raphael MD LAB BLOOD ORDERABLES Final Resul t Performing Organization Address [facility]/ZIP Co de Phone Number HISTORICAL RESULTS * Blood glucose, POC (12/18/2014 2:29 AM CDT) Glucose, POC, bld 117 70 - 199 mg/dl HISTORICAL RESULTS Blood specimen (specimen) 12/18/2014 2:29 AM CDT Result [facility] Roseanne Baron MD LAB BLOOD ORDERA BLES Final Result Performing Organization Address [facility]/ZIP Co de Phone Number HISTORICAL RESULTS * DISCHARGE LABORATORY CUMULATIVE REPORT (12/18/2014) Narrative 12/18/2014 Ordered by an unspecified provider. Result [facility] Tyler Smith MD LAB BLOOD ORDERABLES Deann [...] organism identification may be performed using the [employer] Nanosphere Gram Positive Blood Culture Assay. ??The Nanosphere assay detects microbial DNA in positive blood culture broth via hybridization of target DNA to capture oligonucleotides on a microarray. ??This assay has been cleared by the [place] Food and Drug Administration and its performance characteristics have been verified by the [facility]. Current Interpretive Data was last revised on 2013. Narrative HISTORICAL RESULTS - 12/23/2014 4:09 AM CDT No growth Historical Provider MD LAB MICROBIOLOGY - GENERA L ORDERABLES Final Result Performing Organization Address [facility] de Phone Number HISTORICAL RESULTS [...] Performing Organization Address [facility] de Phone Number HISTORICAL RESULTS [...] agrees with it. ACC# ??Date Time ??Exam [id number] Dec 17, 2014 21:31:[address] Chest with contrast EXAMINATION: ?CT of [...] fluid collection. Findings discussed with Ana Guerrero SALES AND SERVICE SPECIALIST by Dr. Aiken at 10:00 p.m. on 12/17/2014. Requested By: ANA RANDOLPH Dictated By: ?? ESTRADA AIKEN M.D. ??on Dec 17 2014 10:12P This document has been electronically signed by: FATUMA LOPEZ M.D. on Dec 18 2014 ??8:14A [id number] Procedure Note Provider, MD Tyler - 08/12/2016 FATUMA LOPEZ M.D. ESTRADA AIKEN M.D. FINAL REPORT The radiology attending physician has personally reviewed this study, and has reviewed and/or edited this written report and agrees with it. ACC# Date Time Exam [id number] Dec 17, 2014 21:31:[address] Chest with contrast EXAMINATION: CT of [...] fluid collection. Findings discussed with Ana Guerrero SALES AND SERVICE SPECIALIST by Dr. Aiken at 10:00 p.m. on 12/17/2014. Requested By: ANA RANDOLPH [facility] Dictated By: ESTRADA AIKEN M.D. on Dec 17 2014 10:12P This document has been electronically signed by: FATUMA LOPEZ M.D. on Dec 18 2014 8:14A [id number] us Historical Provider IMMichael CT PROCEDURES Final [...] Urine 12/17/2014 9:30 PM CDT Carla Graf SALES AND SERVICE SPECIALIST LAB BLOOD ORDERABLES Final R esult Performing Organization Address [facility] Co de [...] Urine 12/17/2014 9:30 PM CDT Carla Graf SALES AND SERVICE SPECIALIST LAB BLOOD ORDERABLES Final R esult Performing Organization Address [facility] de Phone Number HISTORICAL RESULTS * Urine (aerobic) culture (12/17/2014 9:30 PM CDT) Urine (Unknown) 12/17/2014 9 :30 PM CDT 12/18/2014 1:52 AM CDT Narrative HISTORICAL RESULTS - 12/19/2014 12:00 PM CDT Insignificant growth based on current clinical standards. Historical Provider MD LAB MICROBIOLOGY - GENERA L ORDERABLES Final Result Performing Organization Address [facility] de Phone Number HISTORICAL RESULTS [...] agrees with it. ACC# ??Date Time ??Exam [id number] Dec 17, 2014 18:53:00 81213 Chest 2 views Frontl & Lat ACC# ??Date Time ??Exam [id number] Dec 17, 2014 18:53:00 82899 Chest 2 views Frontl & Lat EXAMINATION: [...] MCKEON M.D. on Dec 18 2014 ??8:28A [id number] Procedure Note Provider, MD Tyler - 08/12/2016 GERARDO MCKEON M.D. KRZYSZTOF PHAM M.D. FINAL REPORT The radiology attending physician has personally reviewed this study, and has reviewed and/or edited this written report and agrees with it. ACC# Date Time Exam [id number] Dec 17, 2014 18:53:00 [id number] Chest 2 views Frontl & Lat ACC# Date Time Exam [id number] Dec 17, 2014 18:53:00 [id number] Chest 2 views Frontl & Lat EXAMINATION: [...] MCKEON M.D. on Dec 18 2014 8:28A [id number] us Historical Provider MD GARCIA XR PROCEDURES [...] Plasma 12/17/2014 6:40 PM CDT Carla Graf SALES AND SERVICE SPECIALIST LAB BLOOD ORDERABLES Final R esult HISTORICAL RESULTS * Serum magnesium (12/17/2014 6:40 PM CDT) Magnesium 1.7 1.4 - 2.5 mg/dl HISTORICAL RESULTS Serum 12/17/2014 6:40 PM CDT Carla Graf SALES AND SERVICE SPECIALIST LAB BLOOD ORDERABLES Final R esult HISTORICAL [...] (specimen) 12/17/2014 6:40 PM CDT Carla Graf SALES AND SERVICE SPECIALIST LAB BLOOD ORDERABLES Final R esult HISTORICAL RESULTS * Respiratory Pathogen Multiplex PCR (12/17/2014 6:33 PM CDT) Nasopharyngeal (Unknown) 12/17/2014 6:33 PM CDT 12/17/2014 8:12 PM CDT Impressions HISTORICAL RESULTS - 12/17/2014 10:16 PM CDT The [employer] (formerly known as [employer] FilmArray Respiratory Panel (RP) assay is a [...] FilmArray RP assay is FDA cleared for SALES AND SERVICE SPECIALIST swabs. ??Additional sample types have been validated according to CLIA regulations. ??The performance characteristics of this assay have been determined by [facility]. Current interpretive data was last revised on 2013. Narrative HISTORICAL RESULTS - 12/17/2014 10:16 PM CDT Respiratory Pathogen nucleic acids DETECTED (POSITIVE) for the following: Rhinovirus/Enterovirus Historical Provider MD LAB MICROBIOLOGY - GENERA L ORDERABLES Final Result Performing Organization Address [facility] de Phone Number HISTORICAL RESULTS * Influenza virus PCR (12/17/2014 6:33 PM CDT) Nasopharyngeal (Unknown) 12/17/2014 6:33 PM CDT 12/17/2014 6:57 PM CDT Impressions HISTORICAL RESULTS - 12/17/2014 10:39 PM CDT This test has been performed using the [employer] Xpert Flu Assay. ??This is a multiplex, real-time reverse transcriptase PCR assay that detects and differentiates influenza A, 2009 H1N1 influenza A, and influenza B viral RNA. ??This assay has been cleared by the [place] Food and Drug Administration, and its performance characteristics have been verified by the [facility]. Current interpretive data was last revised on 2011. Narrative HISTORICAL RESULTS - 12/17/2014 10:39 PM CDT Flu A target RNA not detected Flu B target RNA not detected Historical Provider MD LAB MICROBIOLOGY - GENERA L ORDERABLES Final Result Performing Organization Address [facility] de Phone Number HISTORICAL RESULTS * All Microbiology Report Section (12/17/2014 12:00 AM CDT) 12/17/2014 Narrative HISTORICAL RESULTS - 12/22/2014 3:48 PM CDT ? [facility] ?[facility] [place] ?[place] [address] ? Patient Name: ??MOHSEN MARQUES ? Med Rec Number: [id number] ? Fin Number: ?[id number] ? Date: ?1955 ? Sex/Age: ? Female 59 years ? Admit Date: ?12/18/2014 ? Discharge Date: 12/18/2014 ? Doctor: ?Medicine , ? Facility: ?[facility] ? Location: ?* Abnormal ??A Alert [...] RESULTS - 12/23/2014 6:46 AM CDT ? [facility] ?[facility] ?[place], [place] [address] ? Patient Name: ??MOHSEN MARQUES ? Med Rec Number: [id number] ? Fin Number: ?[id number] ? Date: ?1955 ? Sex/Age: ? Female 59 years ? Admit Date: ?12/18/2014 ? Discharge Date: 12/18/2014 ? Doctor: ?Medicine , ? Facility: ?[facility] ? Location: ?* Abnormal ??A Alert [...] identification may be ? performed using the [employer] Nanosphere Gram Positive Blood ? Culture Assay. ??The Nanosphere assay detects microbial DNA in ? positive blood culture broth via hybridization of target DNA to ? capture oligonucleotides on a microarray. ??This assay has been ? cleared by the [place] Food and Drug Administration and ? its performance characteristics have been verified by the ? [facility].Current ? Interpretive Data was last revised on 2013. ? us Historical Provider LAB MICROBIOLOGY - GENERA L ORDERABLES Final Result HISTORICAL RESULTS * All Microbiology Report Section (12/17/2014 12:00 AM CDT) 12/17/2014 Narrative HISTORICAL RESULTS - 12/22/2014 3:48 PM CDT ? [facility] ?[facility] ?[place], [place] [address] ? Patient Name: ??MOHSEN MARQUES ? Med Rec Number: [id number] ? Fin Number: ?[id number] ? Date: ?1955 ? Sex/Age: ? Female 59 years ? Admit Date: ?12/18/2014 ? Discharge Date: 12/18/2014 ? Doctor: ?Medicine , ? Facility: ?[facility] ? Location: ?* Abnormal ??A Alert [...] RESULTS - 12/22/2014 3:48 PM CDT ? [facility] ?[facility] [place] ?[place] [address] ? Patient Name: ??MOHSEN MARQUES ? Med Rec Number: [id number] ? Fin Number: ?[id number] ? Date: ?1955 ? Sex/Age: ? Female 59 years ? Admit Date: ?12/18/2014 ? Discharge Date: 12/18/2014 ? Doctor: ?Medicine , ? Facility: ?[facility] ? Location: ?* Abnormal ??A Alert [...] ? ORDER COMMENTS ? (1)Testing performed by: [facility], [place], ? [place] [address] ??Testing performed by: [facility], ? [place] [address] ?* * * ??Interpretive Results ??* * * ? (1)The [employer] (formerly known as [employer]) ? FilmArray Respiratory Panel (RP) assay is [...] FilmArray RP assay is FDA cleared for SALES AND SERVICE SPECIALIST ? swabs. ??Additional sample types have been validated according to ? CLIA regulations. ??The performance characteristics of this assay ? have been determined by [facility] ? Lab.Current interpretive data was last revised on 2013. ? us Historical Provider MD LAB MICROBIOLOGY - GENERA L ORDERABLES Final Result HISTORICAL RESULTS * All Microbiology Report Section (12/17/2014 12:00 AM CDT) 12/17/2014 Narrative HISTORICAL RESULTS - 12/22/2014 3:48 PM CDT ? [facility] ?[facility] ?[place], [place] [address] ? Patient Name: ??MOHSEN MARQUES ? Med Rec Number: [id number] ? Fin Number: ?[id number] ? Date: ?1955 ? Sex/Age: ? Female 59 years ? Admit Date: ?12/18/2014 ? Discharge Date: 12/18/2014 ? Doctor: ?Medicine , ? Facility: ?[facility] ? Location: ?* Abnormal ??A Alert [...] (1)This test has been performed using the [employer] Flu Assay. ? This is a multiplex, real-time reverse transcriptase PCR assay ? that detects and differentiates influenza A, 2009 H1N1 influenza ? A, and influenza B viral RNA. ??This assay has been cleared by ? the [place] Food and Drug Administration, and its performance ? characteristics have been verified by the [facility] ? [facility]biology Laboratory.Current interpretive data was last ? revised on 05/24/2011. ? us Historical Provider LAB MICROBIOLOGY - GENERA L ORDERABLES Final Result HISTORICAL RESULTS documented in this encounter Visit Diagnoses Diagnosis Local infection due to central venous catheter documented in this encounter Care Teams Internal Medicine Physician Assistant Relationship Specialty Start Date End Date Antoinette Zhu MD [address] [address] PCP - General 08/01/13 07/26/16 documented as of this encounter
--- OUTSIDE RECORDS SUMMARY | 2024-04-26 09:37 | XMS_ITS | Encounter Summary ---
Author Organization [facility] Facility Care Team Providers Care Cutting Torch Operator Name Role Phone Antoinette Zhu MD Primary Care Provider [phone] Encounter Details Date Type Department Care Team (Late st Contact Info) Description 08/28/2014 - 08/28/2014 11:59 PM CDT Hospital Encounter [facility] Aft, Farzaneh Bell MD PhD [address] [place] [address] Social History Tobacco Use Types Packs/Day Years Used Date Smoking Tobacco: Former Alcohol Use Standard Drinks/Week Comments No 0 (1 standard drink = 0.6 oz pur e alcohol) Comments Unknown Sex and Gender Information Value Date Recorded Sex Assigned at Not on file 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
--- OUTSIDE RECORDS SUMMARY | 2024-04-26 09:37 | XMS_ITS | Encounter Summary ---
Author Organization [facility] Healthcare Address [address] [place] [address] Care Team Providers Care Tobacco Prizer Name Role Phone Antoinette Zhu MD Primary Care Provider [phone] [phone] Encounter Details Date Type Department Care Team (Late st Contact Info) Description 12/30/2013 8:58 AM CDT - 12/31/2013 11:59 PM CDT [place] [address] [facility] [address] [place] [address] Thyrotoxicosis Social History Tobacco Use Types Packs/Day Years Used Date Smoking Tobacco: Former Alcohol Use Standard Drinks/Week Comments No 0 (1 standard drink = 0.6 oz pur e alcohol) Comments Unknown Sex and Gender Information Value Date Recorded Sex Assigned at Not on file 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 UTILITIES AND MAINTENANCE SUPERVISOR: ??DM2 TRANSCRIBE DATE/TIME: ??Dec ??2013 ??7:02P RADIOLOGIST: ??RAQUEL BASSETT M.D. ??READ ON: ??Dec ??2013 ??2:31P ORDERING DR: EUGENIO FUENTES M.D. THIS DOCUMENT HAS BEEN ELECTRONICALLY SIGNED BY: ??RAQUEL BASSETT M.D. ??ON: ??Jan 01 2014 ??9:33A Requesting Fax: ??[phone] Procedure Note Provider, MD Tyler - 08/12/2016 DATE OF EXAM: Dec 31 2013 11:00AM Acc#: [id number] [facility] 0148 - [place] Thyroid Uptake(s) Measure [...] NOT GIVEN RADIOACTIVE IODINE UPTAKE WAS NORMAL. UTILITIES AND MAINTENANCE SUPERVISOR: SUZIE TRANSCRIBE DATE/TIME: Dec 31 2013 7:02P [...] storm documented in this encounter Care Teams Tobacco Prizer Relationship Specialty Start Date End Date Antoinette Zhu MD [address] [address] PCP - General 08/01/13 07/26/16 documented as of this encounter
--- OUTSIDE RECORDS SUMMARY | 2024-04-26 09:37 | XMS_ITS | Encounter Summary ---
Author Organization [facility] Facility Care Team Providers Care Supervisor Pile Driving Name Role Phone Antoinette Zhu MD Primary Care Provider [phone] Encounter Details Date Type Department Care Team (Late st Contact Info) Description 09/23/2014 - 09/23/2014 11:59 PM CDT Hospital Encounter [facility] Aft, Farzaneh Bell MD PhD [address] [place] [address] Social History Tobacco Use Types Packs/Day Years Used Date Smoking Tobacco: Former Alcohol Use Standard Drinks/Week Comments No 0 (1 standard drink = 0.6 oz pur e alcohol) Comments Unknown Sex and Gender Information Value Date Recorded Sex Assigned at Not on file 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
--- OUTSIDE RECORDS SUMMARY | 2024-04-26 09:37 | XMS_ITS | Encounter Summary ---
Author Organization [facility] Healthcare Address [address] [place] [address] Care Team Providers Care Epic Beacon Specialists Name Role Phone Antoinette Zhu MD Primary Care Provider [phone] Encounter Details Date Type Department Care Team (Late st Contact Info) Description 12/12/2013 1:46 PM CDT - 12/12/2013 11:59 PM CDT Hospital [place] [address] [facility] [address] [place] [address] Nontoxic multinodular goiter Social History Tobacco Use Types Packs/Day Years Used Date Smoking Tobacco: Former Alcohol Use Standard Drinks/Week Comments No 0 (1 standard drink = 0.6 oz pur e alcohol) Comments Unknown Sex and Gender Information Value Date Recorded Sex Assigned at Not on file 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
--- OUTSIDE RECORDS SUMMARY | 2024-04-26 09:37 | XMS_ITS | Encounter Summary ---
Author Organization [facility] Facility Care Team Providers Care Equipment Detailer Name Role Phone Antoinette Zhu MD Primary Care Provider [phone] Encounter Details Date Type Department Care Team (Late st Contact Info) Description 07/21/2014 Hospital Encounter [facility] Aft, Farzaneh Bell MD PhD [address] [place] [address] Lump or mass in breast; Malignant neoplasm of breast (female) (HCC); Fibroadenosis of breast Social History Tobacco Use Types Packs/Day Years Used Date Smoking Tobacco: Former Alcohol Use Standard Drinks/Week Comments No 0 (1 standard drink = 0.6 oz pur e alcohol) Comments Unknown Sex and Gender Information Value Date Recorded Sex Assigned at Not on file 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 ACC# ??Date Time ??Exam [id number] Jul 21, 2014 15:59:00 [facility] 97378 Breast Bx Incl Loc Sono L [id number] Jul 21, 2014 15:54:00 [facility] 47055 Breast Bx Incl Loc Stereo R [id number] Jul 21, 2014 16:07:00 [facility] [id number] Bilat Post Op Biopsy Film ?? Technologist(s): Lety Jerez; ; [id number] Jul 21, 2014 15:59:00 [facility] 33461 Breast FNA BX with Img Gd L [id number] Jul 21, 2014 15:59:00 [facility] 67991P SonoGd FineNdl Aspiration L ?? Technologist(s): Shanthi Hernandez; ; ACC# ??Date Time ??Exam [id number] Jul 21, 2014 15:59:00 [facility] 34882 Breast Bx Incl Loc Sono L [id number] Jul 21, 2014 15:54:00 [facility] 01311 Breast Bx Incl Loc Stereo R [id number] Jul 21, 2014 16:07:00 [facility] [id number] Bilat Post Op Biopsy Film ?? Technologist(s): Lety Jerez; ; [id number] Jul 21, 2014 15:59:00 [facility] 26108 Breast FNA BX with Img Gd L [id number] Jul 21, 2014 15:59:00 [facility] [id number] SonoGd FineNdl Aspiration L ?? Technologist(s): Shanthi [...] mammograms and a left breast sonogram from [facility] in [place], [place] dated 07/01/2014 and 07/07/2014 demonstrated a [...] a right unilateral diagnostic mammogram performed at [facility] on 07/16/2014 demonstrated a 2 mm [...] was identified on the breast sonogram from [facility] dated 07/07/2014. ??After sterile preparation of the [...] a #11 scalpel blade. ??A 9 gauge [employer]os vacuum-assisted biopsy needle was then advanced through [...] the entire procedure. Dr. Simon (diagnostic resident medical officer) also participated in this examination. ?? IMPRESSION: [...] VIOLET ANDERSON M.D. on Jul ??2014 ??5:57P [id number] Procedure Note Provider, MD Tyler - 08/12/2016 VIOLET JUSTIN, M.D. FINAL REPORT The radiology attending physician has personally reviewed this study, and has reviewed and/or edited this written report and agrees with it. ACC# Date Time Exam [id number] Jul 21, 2014 15:59:00 [facility] 55521 Breast Bx Incl Loc Sono L [id number] Jul 21, 2014 15:54:00 [facility] 38125 Breast Bx Incl Loc Stereo R [id number] Jul 21, 2014 16:07:00 [facility] 60500L Bilat Post Op Biopsy Film Technologist(s): Lety Jerez; ; [id number] Jul 21, 2014 15:59:00 [facility] 74259 Breast FNA BX with Img Gd L [id number] Jul 21, 2014 15:59:00 [facility] 70022Z SonoGd FineNdl Aspiration L Technologist(s): Shanthi Hernandez; ; ACC# Date Time Exam [id number] Jul 21, 2014 15:59:00 [facility] 29126 Breast Bx Incl Loc Sono L [id number] Jul 21, 2014 15:54:00 [facility] 00598 Breast Bx Incl Loc Stereo R [id number] Jul 21, 2014 16:07:00 [facility] 72525V Bilat Post Op Biopsy Film Technologist(s): Lety Jerez; ; [id number] Jul 21, 2014 15:59:00 [facility] 95427 Breast FNA BX with Img Gd L [id number] Jul 21, 2014 15:59:00 [facility] 18047J SonoGd FineNdl Aspiration L Technologist(s): Shanthi Hernandez; [...] mammograms and a left breast sonogram from [facility] in [place], [place] dated 07/01/2014 and 07/07/2014 demonstrated a [...] a right unilateral diagnostic mammogram performed at [facility] on 07/16/2014 demonstrated a 2 mm [...] was identified on the breast sonogram from [facility] dated 07/07/2014. After sterile preparation of the [...] a #11 scalpel blade. A 9 gauge [employer] vacuum-assisted biopsy needle was then advanced through the skin incision to the level of the calcifications of interest from an inferior approach utilizing stereotactic guidance and a total of 4 tissue cores were obtained. The specimen radiograph demonstrates that the calcifications of interest are included within the tissue cores. A [employer] Ultra coil-shaped tissue marker clip was then [...] the entire procedure. Dr. Simon (diagnostic resident medical officer) also participated in this examination. IMPRESSION: 1) [...] ANDERSON M.D. on Jul 25 2014 5:57P [id number] us Historical Provider MD GARCIA US PROCEDURES Final R esult * SONOGRAPHIC ASPIRATION (07/21/2014 3:59 PM CDT) Anatomical Region Laterality Modality N/A Ultrasound 07/21/2014 3:59 PM CDT Narrative 07/25/2014 5:57 PM CDT VIOLET ANDERSON M.D. FINAL REPORT The radiology attending physician has personally reviewed this study, and has reviewed and/or edited this written report and agrees with it. ACC# ??Date Time ??Exam [id number] Jul 21, 2014 15:59:00 [facility] 61162 Breast Bx Incl Loc Sono L [id number] Jul 21, 2014 15:54:00 [facility] 91613 Breast Bx Incl Loc Stereo R [id number] Jul 21, 2014 16:07:00 [facility] 44428B Bilat Post Op Biopsy Film ?? Technologist(s): Lety Jerez; ; [id number] Jul 21, 2014 15:59:00 [facility] 87225 Breast FNA BX with Img Gd L [id number] Jul 21, 2014 15:59:00 [facility] 10925V SonoGd FineNdl Aspiration L ?? Technologist(s): Shanthi Hernandez; ; ACC# ??Date Time ??Exam [id number] Jul 21, 2014 15:59:00 [facility] 73713 Breast Bx Incl Loc Sono L [id number] Jul 21, 2014 15:54:00 [facility] 40890 Breast Bx Incl Loc Stereo R [id number] Jul 21, 2014 16:07:00 [facility] 86452D Bilat Post Op Biopsy Film ?? Technologist(s): Lety Jerez; ; [id number] Jul 21, 2014 15:59:00 [facility] 11905 Breast FNA BX with Img Gd L [id number] Jul 21, 2014 15:59:00 [facility] 32044G SonoGd FineNdl Aspiration L ?? Technologist(s): Shanthi [...] mammograms and a left breast sonogram from [facility] in [place], [place] dated 07/01/2014 and 07/07/2014 demonstrated a [...] a right unilateral diagnostic mammogram performed at [facility] on 07/16/2014 demonstrated a 2 mm [...] was identified on the breast sonogram from [facility] dated 07/07/2014. ??After sterile preparation of the [...] a #11 scalpel blade. ??A 9 gauge Ens[employer] vacuum-assisted biopsy needle was then advanced through the skin incision to the level of the calcifications of interest from an inferior approach utilizing stereotactic guidance and a total of 4 tissue cores were obtained. The specimen radiograph demonstrates that the calcifications of interest are included within the tissue cores. ??A [employer] Ultra coil-shaped tissue marker clip was then [...] the entire procedure. Dr. Simon (diagnostic resident medical officer) also participated in this examination. ?? IMPRESSION: [...] agrees with it. ACC# Date Time Exam [id number] Jul 21, 2014 15:59:00 [facility] 41738 Breast Bx Incl Loc Sono L [id number] Jul 21, 2014 15:54:00 [facility] 33198 Breast Bx Incl Loc Stereo R [id number] Jul 21, 2014 16:07:00 [facility] 49092L Bilat Post Op Biopsy Film Technologist(s): Lety Jerez; ; [id number] Jul 21, 2014 15:59:00 [facility] 31236 Breast FNA BX with Img Gd L [id number] Jul 21, 2014 15:59:00 [facility] 21172Q SonoGd FineNdl Aspiration L Technologist(s): Shanthi Hernandez; ; ACC# Date Time Exam [id number] Jul 21, 2014 15:59:00 [facility] 45515 Breast Bx Incl Loc Sono L [id number] Jul 21, 2014 15:54:00 [facility] 91434 Breast Bx Incl Loc Stereo R [id number] Jul 21, 2014 16:07:00 [facility] 38260L Bilat Post Op Biopsy Film Technologist(s): Lety Jerez; ; [id number] Jul 21, 2014 15:59:00 [facility] 74881 Breast FNA BX with Img Gd L [id number] Jul 21, 2014 15:59:00 [facility] 25205N SonoGd FineNdl Aspiration L Technologist(s): Shanthi Hernandez; [...] mammograms and a left breast sonogram from [facility] in [place], [place] dated 07/01/2014 and 07/07/2014 demonstrated a [...] a right unilateral diagnostic mammogram performed at [facility] on 07/16/2014 demonstrated a 2 mm [...] was identified on the breast sonogram from [facility] dated 07/07/2014. After sterile preparation of the [...] a #11 scalpel blade. A 9 gauge [employer] vacuum-assisted biopsy needle was then advanced through the skin incision to the level of the calcifications of interest from an inferior approach utilizing stereotactic guidance and a total of 4 tissue cores were obtained. The specimen radiograph demonstrates that the calcifications of interest are included within the tissue cores. A [employer] Ultra coil-shaped tissue marker clip was then [...] the entire procedure. Dr. Simon (diagnostic resident medical officer) also participated in this examination. IMPRESSION: 1) [...] agrees with it. ACC# ??Date Time ??Exam [id number] Jul 21, 2014 15:59:00 [facility] 13659 Breast Bx Incl Loc Sono L [id number] Jul 21, 2014 15:54:00 [facility] 29905 Breast Bx Incl Loc Stereo R [id number] Jul 21, 2014 16:07:00 [facility] 96448W Bilat Post Op Biopsy Film ?? Technologist(s): Lety Jerez; ; [id number] Jul 21, 2014 15:59:00 [facility] 91660 Breast FNA BX with Img Gd L [id number] Jul 21, 2014 15:59:00 [facility] 49793I SonoGd FineNdl Aspiration L ?? Technologist(s): Shanthi Hernandez; ; ACC# ??Date Time ??Exam [id number] Jul 21, 2014 15:59:00 [facility] 64790 Breast Bx Incl Loc Sono L [id number] Jul 21, 2014 15:54:00 [facility] 23893 Breast Bx Incl Loc Stereo R [id number] Jul 21, 2014 16:07:00 [facility] 40518C Bilat Post Op Biopsy Film ?? Technologist(s): Lety Jerez; ; [id number] Jul 21, 2014 15:59:00 [facility] 40490 Breast FNA BX with Img Gd L [id number] Jul 21, 2014 15:59:00 [facility] 30913B SonoGd FineNdl Aspiration L ?? Technologist(s): Shanthi [...] mammograms and a left breast sonogram from [facility] in [place], [place] dated 07/01/2014 and 07/07/2014 demonstrated a [...] a right unilateral diagnostic mammogram performed at [facility] on 07/16/2014 demonstrated a 2 mm [...] was identified on the breast sonogram from [facility] dated 07/07/2014. ??After sterile preparation of the [...] the entire procedure. Dr. Simon (diagnostic resident medical officer) also participated in this examination. ?? IMPRESSION: [...] VIOLET ANDERSON M.D. on Jul ??2014 ??5:57P [id number] Procedure Note Provider, MD Tyler - 08/12/2016 VIOLET ANDERSON M.D. FINAL REPORT The radiology attending physician has personally reviewed this study, and has reviewed and/or edited this written report and agrees with it. ACC# Date Time Exam [id number] Jul 21, 2014 15:59:00 [facility] 76161 Breast Bx Incl Loc Sono L [id number] Jul 21, 2014 15:54:00 [facility] 95507 Breast Bx Incl Loc Stereo R [id number] Jul 21, 2014 16:07:00 [facility] 69359S Bilat Post Op Biopsy Film Technologist(s): Lety Jerez; ; [id number] Jul 21, 2014 15:59:00 [facility] 81079 Breast FNA BX with Img Gd L [id number] Jul 21, 2014 15:59:00 [facility] 80047X SonoGd FineNdl Aspiration L Technologist(s): Shanthi Hernandez; ; ACC# Date Time Exam [id number] Jul 21, 2014 15:59:00 [facility] 15038 Breast Bx Incl Loc Sono L [id number] Jul 21, 2014 15:54:00 [facility] 38242 Breast Bx Incl Loc Stereo R [id number] Jul 21, 2014 16:07:00 [facility] 12494X Bilat Post Op Biopsy Film Technologist(s): Lety Jerez; ; [id number] Jul 21, 2014 15:59:00 [facility] 13036 Breast FNA BX with Img Gd L [id number] Jul 21, 2014 15:59:00 [facility] 58467U SonoGd FineNdl Aspiration L Technologist(s): Shanthi Hernandez; [...] mammograms and a left breast sonogram from [facility] in [place], [place] dated 07/01/2014 and 07/07/2014 demonstrated a [...] a right unilateral diagnostic mammogram performed at [facility] on 07/16/2014 demonstrated a 2 mm [...] was identified on the breast sonogram from [facility] dated 07/07/2014. After sterile preparation of the [...] the entire procedure. Dr. Simon (diagnostic resident medical officer) also participated in this examination. IMPRESSION: 1) [...] ANDERSON M.D. on Jul 25 2014 5:57P [id number] us Historical Provider MD GARCIA IR PROCEDURES [...] agrees with it. ACC# ??Date Time ??Exam [id number] Jul 21, 2014 15:59:00 [facility] 46595 Breast Bx Incl Loc Sono L [id number] Jul 21, 2014 15:54:00 [facility] 93122 Breast Bx Incl Loc Stereo R [id number] Jul 21, 2014 16:07:00 [facility] 06351F Bilat Post Op Biopsy Film ?? Technologist(s): Lety Jerez; ; [id number] Jul 21, 2014 15:59:00 [facility] 77903 Breast FNA BX with Img Gd L [id number] Jul 21, 2014 15:59:00 [facility] 46487V SonoGd FineNdl Aspiration L ?? Technologist(s): Shanthi Hernandez; ; ACC# ??Date Time ??Exam [id number] Jul 21, 2014 15:59:00 [facility] 88264 Breast Bx Incl Loc Sono L [id number] Jul 21, 2014 15:54:00 [facility] 89166 Breast Bx Incl Loc Stereo R [id number] Jul 21, 2014 16:07:00 [facility] 10207J Bilat Post Op Biopsy Film ?? Technologist(s): Lety Jerez; ; [id number] Jul 21, 2014 15:59:00 [facility] 28252 Breast FNA BX with Img Gd L [id number] Jul 21, 2014 15:59:00 [facility] 75694N SonoGd FineNdl Aspiration L ?? Technologist(s): Shanthi [...] mammograms and a left breast sonogram from [facility] in [place], [place] dated 07/01/2014 and 07/07/2014 demonstrated a [...] a right unilateral diagnostic mammogram performed at [facility] on 07/16/2014 demonstrated a 2 mm [...] was identified on the breast sonogram from [facility] dated 07/07/2014. ??After sterile preparation of the [...] a #11 scalpel blade. ??A 9 gauge [employer] vacuum-assisted biopsy needle was then advanced through [...] the entire procedure. Dr. Simon (diagnostic resident medical officer) also participated in this examination. ?? IMPRESSION: [...] agrees with it. ACC# Date Time Exam [id number] Jul 21, 2014 15:59:00 [facility] 64635 Breast Bx Incl Loc Sono L [id number] Jul 21, 2014 15:54:00 [facility] 54728 Breast Bx Incl Loc Stereo R [id number] Jul 21, 2014 16:07:00 [facility] 76195A Bilat Post Op Biopsy Film Technologist(s): Lety Jerez; ; [id number] Jul 21, 2014 15:59:00 [facility] 24686 Breast FNA BX with Img Gd L [id number] Jul 21, 2014 15:59:00 [facility] 10506G SonoGd FineNdl Aspiration L Technologist(s): Shanthi Hernandez; ; ACC# Date Time Exam [id number] Jul 21, 2014 15:59:00 [facility] 27345 Breast Bx Incl Loc Sono L [id number] Jul 21, 2014 15:54:00 [facility] 73710 Breast Bx Incl Loc Stereo R [id number] Jul 21, 2014 16:07:00 [facility] 18079Y Bilat Post Op Biopsy Film Technologist(s): Lety Jerez; ; [id number] Jul 21, 2014 15:59:00 [facility] 96460 Breast FNA BX with Img Gd L [id number] Jul 21, 2014 15:59:00 [facility] 04178D SonoGd FineNdl Aspiration L Technologist(s): Shanthi Hernandez; [...] mammograms and a left breast sonogram from [facility] in [place], [place] dated 07/01/2014 and 07/07/2014 demonstrated a [...] a right unilateral diagnostic mammogram performed at [facility] on 07/16/2014 demonstrated a 2 mm [...] was identified on the breast sonogram from [facility] dated 07/07/2014. After sterile preparation of the [...] a #11 scalpel blade. A 9 gauge [employer] vacuum-assisted biopsy needle was then advanced through [...] the entire procedure. Dr. Simon (diagnostic resident medical officer) also participated in this examination. IMPRESSION: 1) [...] agrees with it. ACC# ??Date Time ??Exam [id number] Jul 21, 2014 15:59:00 [facility] 86778 Breast Bx Incl Loc Sono L [id number] Jul 21, 2014 15:54:00 [facility] 51794 Breast Bx Incl Loc Stereo R [id number] Jul 21, 2014 16:07:00 [facility] 36184J Bilat Post Op Biopsy Film ?? Technologist(s): Lety Jerez; ; [id number] Jul 21, 2014 15:59:00 [facility] 47091 Breast FNA BX with Img Gd L [id number] Jul 21, 2014 15:59:00 [facility] 62211K SonoGd FineNdl Aspiration L ?? Technologist(s): Shanthi Hernandez; ; ACC# ??Date Time ??Exam [id number] Jul 21, 2014 15:59:00 [facility] 75691 Breast Bx Incl Loc Sono L [id number] Jul 21, 2014 15:54:00 [facility] 59960 Breast Bx Incl Loc Stereo R [id number] Jul 21, 2014 16:07:00 [facility] 90336M Bilat Post Op Biopsy Film ?? Technologist(s): Lety Jerez; ; [id number] Jul 21, 2014 15:59:00 [facility] 78701 Breast FNA BX with Img Gd L [id number] Jul 21, 2014 15:59:00 [facility] 86316Y SonoGd FineNdl Aspiration L ?? Technologist(s): Shanthi [...] mammograms and a left breast sonogram from [facility] in [place], [place] dated 07/01/2014 and 07/07/2014 demonstrated a [...] a right unilateral diagnostic mammogram performed at [facility] on 07/16/2014 demonstrated a 2 mm [...] was identified on the breast sonogram from [facility] dated 07/07/2014. ??After sterile preparation of the [...] the entire procedure. Dr. Simon (diagnostic resident medical officer) also participated in this examination. ?? IMPRESSION: [...] VIOLET ANDERSON M.D. on Jul ??2014 ??5:57P [id number] Procedure Note Provider, MD Tyler - 08/12/2016 VIOLET ANDERSON M.D. FINAL REPORT The radiology attending physician has personally reviewed this study, and has reviewed and/or edited this written report and agrees with it. ACC# Date Time Exam [id number] Jul 21, 2014 15:59:00 [facility] 53715 Breast Bx Incl Loc Sono L [id number] Jul 21, 2014 15:54:00 [facility] 28147 Breast Bx Incl Loc Stereo R [id number] Jul 21, 2014 16:07:00 [facility] 64643R Bilat Post Op Biopsy Film Technologist(s): Lety Jerez; ; [id number] Jul 21, 2014 15:59:00 [facility] 55953 Breast FNA BX with Img Gd L [id number] Jul 21, 2014 15:59:00 [facility] 24957A SonoGd FineNdl Aspiration L Technologist(s): Shanthi Hernandez; ; ACC# Date Time Exam [id number] Jul 21, 2014 15:59:00 [facility] 20864 Breast Bx Incl Loc Sono L [id number] Jul 21, 2014 15:54:00 [facility] 54736 Breast Bx Incl Loc Stereo R [id number] Jul 21, 2014 16:07:00 [facility] 03110Z Bilat Post Op Biopsy Film Technologist(s): Lety Jerez; ; [id number] Jul 21, 2014 15:59:00 [facility] 73003 Breast FNA BX with Img Gd L [id number] Jul 21, 2014 15:59:00 [facility] 45948W SonoGd FineNdl Aspiration L Technologist(s): Shanthi Hernandez; [...] mammograms and a left breast sonogram from [facility] in [place], [place] dated 07/01/2014 and 07/07/2014 demonstrated a [...] a right unilateral diagnostic mammogram performed at [facility] on 07/16/2014 demonstrated a 2 mm [...] was identified on the breast sonogram from [facility] dated 07/07/2014. After sterile preparation of the [...] a #11 scalpel blade. A 9 gauge [employer] vacuum-assisted biopsy needle was then advanced through [...] the entire procedure. Dr. Simon (diagnostic resident medical officer) also participated in this examination. IMPRESSION: 1) [...] ANDERSON M.D. on Jul 25 2014 5:57P [id number] Historical Provider IMG MAMMO PROCEDURES Deann l [...] breast documented in this encounter Care Teams Equipment Detailer Relationship Specialty Start Date End Date Antoinette Zhu MD [address] [address] PCP - General 08/01/13 07/26/16 documented as of this encounter
--- OUTSIDE RECORDS SUMMARY | 2024-04-26 09:37 | XMS_ITS | Encounter Summary ---
Author Organization [facility] Facility Care Team Providers Care First Coat Operator Name Role Phone Antoinette Zhu MD Primary Care Provider [phone] Encounter Details Date Type Department Care Team (Late st Contact Info) Description 08/28/2014 - 08/28/2014 11:59 PM CDT Hospital Encounter [facility] Antoinette Zhu MD [address] [address] Essential hypertension; Hypothyroidism; Malignant neoplasm of breast (female) (HCC) Social History Tobacco Use Types Packs/Day Years Used Date Smoking Tobacco: Former Alcohol Use Standard Drinks/Week Comments No 0 (1 standard drink = 0.6 oz pur e alcohol) Comments Unknown Sex and Gender Information Value Date Recorded Sex Assigned at Not on file 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 de Phone Number HISTORICAL RESULTS * (ABNORMAL) Serum thyroid-stimulating hormone (TSH) (08/28/2014 12:00 PM CDT) TSH 0.05(L) 0.35 - 5.50 mcIUnits/ ml HISTORICAL RESULTS Comment: Interpretive Data Hyperthyroid: ??<0.1 mcIUnit/mL Hypothyroid: ??>12.0 mcIUnit/mL Current interpretive data was last revised on 00. Serum 08/28/2014 12:0 0 PM CDT Antoinette Zhu MD LAB BLOOD ORDERABLES Deann l Result Performing Organization Address City/State/[facility] Co de Phone Number HISTORICAL RESULTS [...] ORDERABLES Deann l Result Performing Organization Address [facility] de Phone Number HISTORICAL RESULTS * Serum triiodothyronine (T3), free (08/28/2014 12:00 PM CDT) Free T3 4.00 2.30 - 4.20 pg/ml HISTORICAL RESULTS Serum 08/28/2014 12:0 0 PM CDT Antoinette Zhu MD LAB BLOOD ORDERABLES Deann l Result Performing Organization Address [facility] de Phone Number HISTORICAL RESULTS * Serum thyroxine (T4), free (08/28/2014 12:00 PM CDT) Free T4 1.05 0.90 - 1.80 ng/dl HISTORICAL RESULTS Serum 08/28/2014 12:0 0 PM CDT Antoinette Zhu MD LAB BLOOD ORDERABLES Deann l Result Performing Organization Address [facility] de Phone Number HISTORICAL RESULTS * Discharge Laboratory Cumulative Report (08/28/2014 12:00 AM CDT) 08/28/2014 Narrative HISTORICAL RESULTS - 08/28/2014 3:29 PM CDT ?[facility] ?Department of Laboratories ? [address] [facility] ? [place] [address] Patient Name: ??MOHSEN MARQUES Med Rec Number: [id number] Fin Number: ?[id number] Date: ?1955 Sex/Age: ? Female 59 years Admit Date: ?08/28/2014 Discharge Date: 08/28/2014 Doctor: ?Antoinette Zhu Facility: ?[facility] Location: ?CPAP Chart Printed: 08/28/2014 15:29 [...] ?Test: Neut Pct Auto ??Lymph Pct Auto ??[place] Pct Auto ? Reference: [38.7-74.5] ?[20.0-54.3] ? [4.3-13.5] ? Units: % ?% ? % 08/28/2014 ?? 12:00:00 ?? 58.3 ? 31.9 ?7.1 ?Test: Eos Pct Auto ??Baso Pct Auto ??Neut Abs Auto ? Reference: [0.0-6.0] ? [0.0-3.0] ?[1.8-6.6] ? Units: % ? % ?K/cumm 08/28/2014 ?? 12:00:00 ?? 2.4 ? 0.3 ?6.0 ? AUTOMATED WHITE CELL DIFFERENTIAL ?Test: Lymph Abs Auto ??[place] Abs Auto ??Eos Abs Auto ? Reference: [...] site documented in this encounter Care Teams First Coat Operator Relationship Specialty Start Date End Date Antoinette Zhu MD [address] [address] PCP - General 08/01/13 07/26/16 documented as of this encounter
--- OUTSIDE RECORDS SUMMARY | 2024-04-26 09:37 | XMS_ITS | Encounter Summary ---
Author Organization [employer]/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 Co de Phone Number HISTORICAL RESULTS * Blood glucose, POC (11/14/2014 8:29 AM CDT) Glucose, POC, bld 121 70 - 199 mg/dl HISTORICAL RESULTS Blood specimen (specimen) 11/14/2014 8:29 AM CDT David Norton MD LAB BLOOD ORDERABLES Final Res ult Performing Organization Address [facility] de Phone Number HISTORICAL [...] ORDERABLES Fin al Result Performing Organization Address [facility] de Phone Number HISTORICAL [...] agrees with it. ACC# ??Date Time ??Exam [id number] Nov 13, 2014 16:17:00 21810 Inj Abscess Cat [id number] Nov 13, 2014 16:17:00 89005 Inj Sin/Abs,S&I EXAMINATION: ?? Association of Exams [...] agrees with it. ACC# Date Time Exam [id number] Nov 13, 2014 16:17:00 63948 Inj Abscess Cat [id number] Nov 13, 2014 16:17:00 12276 Inj Sin/Abs,S&I EXAMINATION: Association of Exams IMPRESSION: [...] agrees with it. ACC# ??Date Time ??Exam [id number] Nov 13, 2014 16:17:00 53200 Inj Abscess Cat [id number] Nov 13, 2014 16:17:00 02602 Inj Sin/Abs,S&I EXAMINATION: ?? Association of Exams [...] agrees with it. ACC# Date Time Exam [id number] Nov 13, 2014 16:17:00 36270 Inj Abscess Cat [id number] Nov 13, 2014 16:17:00 61735 Inj Sin/Abs,S&I EXAMINATION: Association of Exams IMPRESSION: [...] agrees with it. ACC# ??Date Time ??Exam [id number] Nov 13, 2014 13:37:00 24828 Fluid Drain Soft tissue EXAMINATION: ? PERCUTANEOUS DRAINAGE, RIGHT AND DRAINAGE CATHETER CHECK, LEFT HISTORY: ?59-year-old female s/p bilateral radical mastectomy with a left surgical site 12 Qatari Leakey loop and new right axillary fluid collection. [...] was obtained. ??Prior to beginning the procedure, [place] Protocol was used to confirm the patient's [...] collection before dilating the tract to 12 qatari. ??A 12 Fr Leakey loop was then advanced over the guidewire, formed in the collection, and secured in place with a stitch of 0-Prolene. The catheter was connected to gravity drainage. ??A sterile dressing was applied. A sample of the fluid was sent for culture and gram stain. Then our attention was turned to the left axillary drain. After obtaining a block press operator image, the catheter was injected with dilute [...] 2014 ??5:56P Addendum Dictated by: OUTSIDE IMAGES SQUAD LEADER, ??on Dec 11 2014 10:40A This Addendum has been electronically signed by: GURDEEP SHEPPARD M.D. on Dec 11 2014 ??2:24P [id number] Procedure Note Provider, MD Tyler - 08/12/2016 Avery JULIO M.D. FINAL REPORT The radiology attending physician has personally reviewed this study, and has reviewed and/or edited this written report and agrees with it. ACC# Date Time Exam [id number] Nov 13, 2014 13:37:00 85818 Fluid Drain Soft tissue EXAMINATION: PERCUTANEOUS DRAINAGE, RIGHT AND DRAINAGE CATHETER CHECK, LEFT HISTORY: 59-year-old female s/p bilateral radical mastectomy with a left surgical site 12 Qatari Leakey loop and new right axillary fluid collection. [...] was obtained. Prior to beginning the procedure, [place] Protocol was used to confirm the patient's [...] collection before dilating the tract to 12 qatari. A 12 Fr Leakey loop was then advanced over the guidewire, formed in the collection, and secured in place with a stitch of 0-Prolene. The catheter was connected to gravity drainage. A sterile dressing was applied. A sample of the fluid was sent for culture and gram stain. Then our attention was turned to the left axillary drain. After obtaining a block press operator image, the catheter was injected with dilute [...] 2014 5:56P Addendum Dictated by: OUTSIDE IMAGES SQUAD LEADER, on Dec 11 201410:40A This Addendum has been electronically signed by: GURDEEP SHEPPARD M.D. on Dec 11 2014 2:24P [id number] Historical Provider IMG US PROCEDURES Final R [...] morphotypes identified. ??Specimens that contain grossly mixed eveloi and/or are from body sites that are [...] agrees with it. ACC# ??Date Time ??Exam [id number] Nov 13, 2014 11:02:00 65468I MR Pelv SI Jnts wwo cont ACC# ??Date Time ??Exam [id number] Nov 13, 2014 11:02:00 13346Y MR Pelv SI Jnts wwo cont EXAMINATION: [...] SAHU M.D. on Nov 13 2014 ??4:23P [id number] Procedure Note Provider, MD Tyler - 08/12/2016 Avery PIÑA M.D. FINAL REPORT The radiology attending physician has personally reviewed this study, and has reviewed and/or edited this written report and agrees with it. ACC# Date Time Exam [id number] Nov 13, 2014 11:02:00 95465Z MR Pelv SI Jnts wwo cont ACC# Date Time Exam [id number] Nov 13, 2014 11:02:00 77247H MR Pelv SI Jnts wwo cont EXAMINATION: [...] SAHU M.D. on Nov 13 2014 4:23P [id number] Historical Provider IMG MRI PROCEDURES Final Result * Blood glucose, POC (11/13/2014 7:51 AM CDT) Pathologist [facility] Glucose, POC, bld 109 70 - 199 [...] ORDERABLES Fin eleni Result Performing Organization Address [facility] de Phone Number HISTORICAL [...] Blood specimen (specimen) 11/13/2014 2:51 AM CDT Lester Shell MD PhD LAB BLOOD ORDERABLES Fin al Result HISTORICAL RESULTS * All Microbiology Report Section (11/13/2014 12:00 AM CDT) 11/13/2014 Narrative HISTORICAL RESULTS - 11/15/2014 12:51 PM CDT ? [facility] ?[address] [facility] [address] ?[place], [place] [address] ? Patient Name: ??MARIE MOHSEN Montero ? Med Rec Number: [id number] ? Fin Number: ?[id number] ? Date: ?1955 ? Sex/Age: ? Female 59 years ? Admit Date: ?11/11/2014 ? Discharge Date: 11/14/2014 ? Doctor: ?Khris Arthur ? Facility: ?[facility] ? Location: ?7900 [address] 01 ?* Abnormal ??A Alert ??f Footnote [...] RESULTS - 11/15/2014 12:51 PM CDT ? [facility] ?[address] [facility] [address] ?[place], [place] [address] ? Patient Name: ??MOHSEN MARQUES ? Med Rec Number: [id number] ? Fin Number: ?[id number] ? Date: ?1955 ? Sex/Age: ? Female 59 years ? Admit Date: ?11/11/2014 ? Discharge Date: 11/14/2014 ? Doctor: ?Khris Arthur ? Facility: ?[facility] ? Location: ?7900 [address] 01 ?* Abnormal ??A Alert ??f Footnote [...] L ORDERABLES Final Result Performing Organization Address [facility] de Phone Number HISTORICAL RESULTS * Blood glucose, POC (11/12/2014 8:33 PM CDT) Glucose, POC, bld 104 70 - 199 mg/dl HISTORICAL RESULTS Blood specimen (specimen) 11/12/2014 8:33 PM CDT David Norton MD LAB BLOOD ORDERABLES Final Res ult Performing Organization Address [facility] Co de Phone Number HISTORICAL RESULTS * Blood glucose, POC (11/12/2014 5:50 PM CDT) Glucose, POC, bld 110 70 - 199 mg/dl HISTORICAL RESULTS Blood specimen (specimen) 11/12/2014 5:50 PM CDT David Norton MD LAB BLOOD ORDERABLES Final Res ult Performing Organization Address [facility] de Phone Number HISTORICAL RESULTS * Blood glucose, POC (11/12/2014 12:50 PM CDT) Glucose, POC, bld 120 70 - 199 mg/dl HISTORICAL RESULTS Blood specimen (specimen) 11/12/2014 12:50 PM CDT David Norton MD LAB BLOOD ORDERABLES Final Res ult Performing Organization Address [facility] Phone Number HISTORICAL RESULTS * Blood glucose, POC (11/12/2014 9:43 AM CDT) Glucose, POC, bld 95 70 - 199 mg/dl HISTORICAL RESULTS Blood specimen (specimen) 11/12/2014 9:43 AM CDT aDvid Norton MD LAB BLOOD ORDERABLES Final Res ult Performing Organization Address [facility] Phone Number HISTORICAL RESULTS * CT Chest [...] agrees with it. ACC# ??Date Time ??Exam [id number] Nov 12, 2014 08:17:[id number] Chest with contrast EXAMINATION: ?CT of [...] MCKEON M.D. on Nov 12 2014 ??9:57A [id number] Procedure Note Provider, MD Tyler - 08/12/2016 GERARDO MCKEON M.D. SIXTO GARCÍA M.D. FINAL REPORT The radiology attending physician has personally reviewed this study, and has reviewed and/or edited this written report and agrees with it. [facility]# Date Time Exam [id number] Nov 12, 2014 08:17:[address] Chest with contrast EXAMINATION: CT of [...] MCKEON M.D. on Nov 12 2014 9:57A [id number] Historical Provider IMMichael CT PROCEDURES Final R [...] cell count (CBC) (11/12/2014 2:43 AM CDT) [facility] WBC 8.1 3.8 - 9.8 K/cumm HISTORICAL [...] BLOOD ORDERABLES Final Result Performing Organization Address [facility] Phone Number HISTORICAL RESULTS * Blood erythrocyte sedimentation rate (ESR) (11/12/2014 2:43 AM CDT) [facility] Erythrocyte sedimentation rate 28.0 0.0 - 35.0 mm/hr HISTORICAL RESULTS Blood specimen (specimen) 11/12/2014 2:43 AM CDT Gerardo Hernandez MD LAB BLOOD ORDERABLES Final Result Performing Organization Address [facility] Phone Number HISTORICAL RESULTS * Serum triiodothyronine (T3), free (11/12/2014 2:43 AM CDT) [facility] Free T3 3.30 2.30 - 4.20 pg/ml HISTORICAL RESULTS Serum 11/12/2014 2:43 AM CDT Gerardo Hernandez MD LAB BLOOD ORDERABLES Final Result Performing Organization Address [facility] Phone Number HISTORICAL RESULTS * Serum thyroxine (T4), free (11/12/2014 2:43 AM CDT) Pathologist [facility] Free T4 0.95 0.90 - 1.80 ng/dl HISTORICAL RESULTS Serum 11/12/2014 2:43 AM CDT Gerardo Hernandez MD LAB BLOOD ORDERABLES Final Result Performing Organization Address [facility] Phone Number HISTORICAL RESULTS * XR Hips [...] agrees with it. ACC# ??Date Time ??Exam [id number] Nov 11, 2014 22:52:00 85477 Hips2v marilyn/Pelvis EXAMINATION: ?Hips 2 views bilateral/pelvis [...] MUSTAFA M.D. on Nov 12 2014 ??8:06A [id number] Procedure Note Provider, MD Tyler - 08/12/2016 NAYELI MUSTAFA M.D. WILLIAMS MERRILL M.D. FINAL REPORT The radiology attending physician has personally reviewed this study, and has reviewed and/or edited this written report and agrees with it. ACC# Date Time Exam [id number] Nov 11, 2014 22:52:00 61420 Hips2v marilyn/Pelvis EXAMINATION: Hips 2 views bilateral/pelvis [...] MUSTAFA M.D. on Nov 12 2014 8:06A [id number] Historical Provider IMG XR PROCEDURES Final R esult * Blood glucose, POC (11/11/2014 9:50 PM CDT) Pathologist [facility] Glucose, POC, bld 120 70 - 199 [...] Gram stain (11/11/2014 6:41 PM CDT) Organism KOXY^[id number] 6 HISTORICAL RESULTS Organism PPUT^[id number] 9 HISTORICAL RESULTS Organism SMAL^[id number] 6 HISTORICAL RESULTS Drainage (Chest catheter) 11/11/2014 [...] L ORDERABLES Final Result Performing Organization Address [facility] Co de Phone Number HISTORICAL [...] organism identification may be performed using the Damballa Nanosphere Gram Positive Blood Culture Assay. ??The [...] L ORDERABLES Final Result Performing Organization Address [facility] de Phone Number HISTORICAL RESULTS * Blood glucose, POC (11/11/2014 4:50 PM CDT) [facility] Glucose, POC, bld 116 70 - 199 mg/dl HISTORICAL RESULTS Blood specimen (specimen) 11/11/2014 4:50 PM CDT David Norton MD LAB BLOOD ORDERABLES Final Res ult Performing Organization Address [facility] Co de Phone Number HISTORICAL RESULTS * CHEST RADIOGRAPHY, FRONTAL (AP), LATERAL (11/11/2014 3:49 PM CDT) Anatomical Region Laterality Modality N/A Radiographic Lizeth ging 11/11/2014 3:49 PM CDT Narrative 11/11/2014 8:35 PM CDT LING ADEN M.D. ADAMA REYNAGA M.D. FINAL REPORT The radiology attending physician has personally reviewed this study, and has reviewed and/or edited this written report and agrees with it. ACC# ??Date Time ??Exam [id number] Nov 11, 2014 15:49:00 [id number] Chest 2 views Frontl & Lat EXAMINATION: [...] ADEN M.D. on Nov 11 2014 ??8:34P [id number] Procedure Note Provider, MD Tyler - 08/12/2016 LING ADEN M.D. ADAMA REYNAGA M.D. FINAL REPORT The radiology attending physician has personally reviewed this study, and has reviewed and/or edited this written report and agrees with it. ACC# Date Time Exam [id number] Nov 11, 2014 15:49:00 [id number] Chest 2 views Frontl & Lat EXAMINATION: [...] ADEN M.D. on Nov 11 2014 8:34P [id number] Historical Provider IMMichael XR PROCEDURES Final R esult * All Microbiology Report Section (11/11/2014 12:00 AM CDT) 11/11/2014 Narrative HISTORICAL RESULTS - 11/15/2014 12:51 PM CDT ? [facility] ?[address] [facility] [address] ?[place], [place] [address] ? Patient Name: ??LEONAMBER MOHSEN Montero ? Med Rec Number: [id number] ? Fin Number: ?[id number] ? Date: ?1955 ? Sex/Age: ? Female 59 years ? Admit Date: ?11/11/2014 ? Discharge Date: 11/14/2014 ? Doctor: ?Jerson , Khris O ? Facility: ?[facility] ? Location: ?7900 [address] 01 ?* Abnormal ??A Alert ??f Footnote [...] RESULTS - 11/17/2014 3:29 AM CDT ? [facility] ?[address] [facility] [address] ?[place] [address] ? Patient Name: ??MOHSEN MARQUES ? Med Rec Number: [id number] ? Fin Number: ?[id number] ? Date: ?1955 ? Sex/Age: ? Female 59 years ? Admit Date: ?11/11/2014 ? Discharge Date: 11/14/2014 ? Doctor: ?Jerson , Khris O ? Facility: ?[facility] ? Location: ?7900 [address] 01 ?* Abnormal ??A Alert ??f Footnote [...] identification may be ? performed using the Damballa Nanosphere Gram Positive Blood ? Culture Assay. [...] RESULTS - 11/17/2014 12:56 PM CDT ? [facility] ?[address] [facility] [address] ?[place], [place] [address] ? Patient Name: ??MOHSEN MARQUES ? Med Rec Number: [id number] ? Fin Number: ?[id number] ? Date: ?1955 ? Sex/Age: ? Female 59 years ? Admit Date: ?11/11/2014 ? Discharge Date: 11/14/2014 ? Doctor: ?Jerson , Khris [place] ? Facility: ?[facility] ? Location: ?7900 [address] 01 ?* Abnormal ??A Alert ??f Footnote [...] complication documented in this encounter Care Teams Junior Sales Representative Relationship Specialty Start Date End Date Antoinette Zhu MD [address] [address] PCP - General 08/01/13 07/26/16 documented as of this encounter
--- OUTSIDE RECORDS SUMMARY | 2024-04-26 09:37 | XMS_ITS | Encounter Summary ---
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 [...] FINDINGS: ?? No priors available for comparison. ??Rehabilitation Consultant radiograph demonstrates multiple surgical wires in the [...] ??NO OTHER SIGNIFICANT ABNORMALITIES. ??RESULTS CALLED BY [facility]. STRADDLE TRUCK OPERATOR: ??SP8 TRANSCRIBE DATE/TIME: ??Nov ??2013 ??9:19A RADIOLOGIST: ??LINSEY DSOUZA M.D. ??READ ON: ??Nov ??2013 ??8:00A ORDERING DR: VINCENT GOEL M.D. THIS DOCUMENT HAS BEEN ELECTRONICALLY SIGNED BY: ??LINSEY DSOUZA M.D. ??ON: ??Nov ??2013 ??9:27A Requesting Fax: ??[phone] Procedure Note Provider, MD Tyler - 08/12/2016 DATE OF EXAM: Nov 28 2013 12:20AM Acc#: [id number] ECT 0073 - CT Abd/Pel WO DIAGNOSIS: [...] emergently. FINDINGS: No priors available for comparison. Rehabilitation Consultant radiograph demonstrates multiple surgical wires in the [...] NO OTHER SIGNIFICANT ABNORMALITIES. RESULTS CALLED BY [facility]. STRADDLE TRUCK OPERATOR: SP8 TRANSCRIBE DATE/TIME: Nov 28 2013 9:19A [...] ORDERABLES Fin al Result Performing Organization Address [facility] de Phone Number HISTORICAL [...] HISTORICAL RESULTS Comment: If this individual is -Citizen Of [place], multiply result by 1.21 Repeated results of less than 60 is indicative of chronic kidney disease. MDRD formula has not been validated on individuals greater than 70 years old. Plasma 11/27/2013 11:4 5 PM CDT Vincent Goel MD LAB BLOOD ORDERABLES Fin al Result Performing Organization Address 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
--- OUTSIDE RECORDS SUMMARY | 2024-04-26 09:37 | XMS_ITS | Encounter Summary ---
Author Organization [facility] Facility Care Team Providers Care Box Packer Name Role Phone Antoinette Zhu MD Primary Care Provider [phone] Encounter Details Date Type Department Care Team (Late st Contact Info) Description 09/10/2014 Hospital Encounter [facility] Aft, Farzaneh Bell MD PhD [address] [place] [address] Malignant neoplasm of breast (female) (HCC) Social History Tobacco Use Types Packs/Day Years Used Date Smoking Tobacco: Former Alcohol Use Standard Drinks/Week Comments No 0 (1 standard drink = 0.6 oz pur e alcohol) Comments Unknown Sex and Gender Information Value Date Recorded Sex Assigned at Not on file 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 ACC# ??Date Time ??Exam [id number] September 10, 2014 13:43:00 [facility] 32615 Breast Bx Incl Loc Sono L [id number] September 10, 2014 13:43:00 [facility] 60203 Breast Bx Sono ea addl L [id number] September 10, 2014 13:51:00 [facility] 65354R Mamm Unilat Post Bx Films L ?? [...] throughout the entire procedure. Dr. Bonds (diagnostic vice president of communications) also participated in this examination. IMPRESSION: ?Successful [...] by: SHANTHI TOSCANO M.D. on Sep?2014 ??9:22A [id number] Procedure Note Provider, Historical, MD - 08/12/2016 SHANTHI TOSCANO M.D. FINAL REPORT The radiology attending physician has personally reviewed this study, and has reviewed and/or edited this written report and agrees with it. ACC# Date Time Exam [id number] September 10, 2014 13:43:00 [facility] 41679 Breast Bx Incl Loc Sono L [id number] September 10, 2014 13:43:00 [facility] 48572 Breast Bx Sono ea addl L [id number] September 10, 2014 13:51:00 [facility] 53759Z Mamm Unilat Post Bx Films L Technologist(s): [...] throughout the entire procedure. Dr. Bonds (diagnostic vice president of communications) also participated in this examination. IMPRESSION: Successful [...] TOSCANO M.D. on Sep 29 2014 9:22A [id number] us Historical Provider MD GARCIA MAMMO PROCEDURES [...] agrees with it. ACC# ??Date Time ??Exam [id number] September 10, 2014 13:43:00 [facility] 05809 Breast Bx Incl Loc Sono L [id number] September 10, 2014 13:43:00 [facility] 10518 Breast Bx Sono ea addl L [id number] September 10, 2014 13:51:00 [facility] 50846C Mamm Unilat Post Bx Films L ?? [...] throughout the entire procedure. Dr. Bonds (diagnostic vice president of communications) also participated in this examination. IMPRESSION: ?Successful [...] SHANTHI TOSCANO M.D. on Sep ??2014 ??9:22A [id number] Procedure Note Provider, MD Tyler - 08/12/2016 SHANTHI TOSCANO M.D. FINAL REPORT The radiology attending physician has personally reviewed this study, and has reviewed and/or edited this written report and agrees with it. ACC# Date Time Exam [id number] September 10, 2014 13:43:00 [facility] 18131 Breast Bx Incl Loc Sono L [id number] September 10, 2014 13:43:00 [facility] 69772 Breast Bx Sono ea addl L [id number] September 10, 2014 13:51:00 [facility] 84700Y Mamm Unilat Post Bx Films L Technologist(s): [...] throughout the entire procedure. Dr. Bonds (diagnostic vice president of communications) also participated in this examination. IMPRESSION: Successful [...] TOSCANO M.D. on Sep 29 2014 9:22A [id number] us Historical Provider MD GARCIA US PROCEDURES [...] agrees with it. ACC# ??Date Time ??Exam [id number] September 10, 2014 13:43:00 [facility] 78209 Breast Bx Incl Loc Sono L [id number] September 10, 2014 13:43:00 [facility] 76103 Breast Bx Sono ea addl L [id number] September 10, 2014 13:51:00 [facility] 41408Z Mamm Unilat Post Bx Films L ?? [...] throughout the entire procedure. Dr. Bonds (diagnostic vice president of communications) also participated in this examination. IMPRESSION: ?Successful [...] SHANTHI TOSCANO M.D. on Sep ??2014 ??9:22A [id number] Procedure Note Provider, MD Tyler - 08/12/2016 SHANTHI TOSCANO M.D. FINAL REPORT The radiology attending physician has personally reviewed this study, and has reviewed and/or edited this written report and agrees with it. ACC# Date Time Exam [id number] September 10, 2014 13:43:00 [facility] 94914 Breast Bx Incl Loc Sono L [id number] September 10, 2014 13:43:00 [facility] 50092 Breast Bx Sono ea addl L [id number] September 10, 2014 13:51:00 [facility] 16997I Mamm Unilat Post Bx Films L Technologist(s): [...] throughout the entire procedure. Dr. Bonds (diagnostic vice president of communications) also participated in this examination. IMPRESSION: Successful [...] TOSCANO M.D. on Sep 29 2014 9:22A [id number] us Historical Provider MD GARCIA MAMMO PROCEDURES Deann l Result * Diagnostic Mammogram Left W [place] (09/10/2014 12:12 PM CDT) Anatomical Region Laterality Modality Breast Left Mammography 09/10/2014 12:1 2 PM CDT Narrative 09/10/2014 1:15 PM CDT BEVERLEY MCWILLIAMS MD, PHD FINAL REPORT ACC# ??Date Time ??Exam [id number] September 10, 2014 12:03:00 [facility] 87871 Diag Mammogram Unilateral L ?? Technologist(s): Grisel Godwin; ; [id number] September 10, 2014 10:59:00 [facility] 69982 Breast US unilateral, ltd L [id number] September 10, 2014 12:12:00 [facility] 84180 DigBreast Ludin uni L EXAMINATION: ?? LEFT [...] MD, PHD on Sep 10 2014 ??1:15P [id number] Procedure Note Provider, MD Tyler - 08/12/2016 BEVERLEY MCWILLIAMS MD, PHD FINAL REPORT ACC# Date Time Exam [id number] September 10, 2014 12:03:00 [facility] 18949 Diag Mammogram Unilateral L Technologist(s): Grisel Godwin; ; [id number] September 10, 2014 10:59:00 [facility] 46380 Breast US unilateral, ltd L [id number] September 10, 2014 12:12:00 [facility] 59256 DigBreast [place] uni L EXAMINATION: LEFT FULL [...] MD, PHD on Sep 10 2014 1:15P [id number] us Historical Provider MD GARCIA MAMMO PROCEDURES Deann l Result * DIGITAL MAMMOGRAPHY, UNILATERAL (09/10/2014 12:03 PM CDT) Anatomical Region Laterality Modality Breast Mammography 09/10/2014 12:0 3 PM CDT Narrative 09/10/2014 1:15 PM CDT BEVERLEY MCWILLIAMS MD, PHD FINAL REPORT ACC# ??Date Time ??Exam [id number] September 10, 2014 12:03:00 [facility] 62209 Diag Mammogram Unilateral L ?? Technologist(s): Grisel Godwin; ; [id number] September 10, 2014 10:59:00 [facility] 20298 Breast US unilateral, ltd L [id number] September 10, 2014 12:12:00 [facility] 28340 DigBreast [place] uni L EXAMINATION: ?? LEFT [...] MD, PHD on Sep 10 2014 ??1:15P [id number] Procedure Note Provider, MD Tyler - 08/12/2016 BEVERLEY MCWILLIAMS MD, PHD FINAL REPORT ACC# Date Time Exam [id number] September 10, 2014 12:03:00 [facility] 43409 Diag Mammogram Unilateral L Technologist(s): Grisel Godwin; ; [id number] September 10, 2014 10:59:00 [facility] 82101 Breast US unilateral, ltd L [id number] September 10, 2014 12:12:00 [facility] 57632 DigBreast [place] uni L EXAMINATION: LEFT FULL [...] 12:30 p.m. Requested By: Dictated By: BEVERLEY MCWILLIMAS MD, PHD on Sep 10 2014 1:15P This document has been electronically signed by: BEVERLEY MCWILLIAMS MD, PHD on Sep 10 2014 1:15P [id number] us Historical Provider MD GARCIA MAMMO PROCEDURES Deann l Result * US Breast Limited (09/10/2014 10:59 AM CDT) Anatomical Region Laterality Modality Breast N/A Ultrasound 09/10/2014 10:5 9 AM CDT Narrative 09/10/2014 1:15 PM CDT BEVERLEY MCWILLIAMS MD, PHD FINAL REPORT ACC# ??Date Time ??Exam [id number] September 10, 2014 12:03:00 [facility] 38909 Diag Mammogram Unilateral L ?? Technologist(s): Grisel Godwin; ; [id number] September 10, 2014 10:59:00 [facility] 57248 Breast US unilateral, ltd L [id number] September 10, 2014 12:12:00 [facility] 27598 DigBreast [place] uni L EXAMINATION: ?? LEFT [...] MD, PHD on Sep 10 2014 ??1:15P [id number] Procedure Note Provider, MD Tyler - 08/12/2016 BEVERLEY MCWILLIAMS MD, PHD FINAL REPORT ACC# Date Time Exam [id number] September 10, 2014 12:03:00 [facility] 84489 Diag Mammogram Unilateral L Technologist(s): Grisel Godwin; ; [id number] September 10, 2014 10:59:00 [facility] 54432 Breast US unilateral, ltd L [id number] September 10, 2014 12:12:00 [facility] 42671 DigBreast [place] uni L EXAMINATION: LEFT FULL [...] MD, PHD on Sep 10 2014 1:15P [id number] Historical Provider IMMichael US PROCEDURES Final R esult * Surgical pathology (09/10/2014) Narrative 09/10/2014 Ordered by an unspecified provider. Historical Provider LAB PATHOLOGY ORDERABLES Final Result documented in this encounter Visit Diagnoses Diagnosis Malignant neoplasm of breast (female) (HCC) Malignant neoplasm of breast (female), unspecified site documented in this encounter Care Teams Box Packer Relationship Specialty Start Date End Date Antoinette Zhu MD [address] [address] PCP - General 08/01/13 07/26/16 documented as of this encounter
--- OUTSIDE RECORDS SUMMARY | 2024-04-26 09:37 | XMS_ITS | Encounter Summary ---
Author Organization [facility] Facility Care Team Providers Care Artificial Marble Worker Name Role Phone Antoinette Zhu MD Primary Care Provider [phone] Encounter Details Date Type Department Care Team (Latest Contact Info) Description 07/16/2014 - 07/16/2014 11:59 PM CDT Hospital Encounter [facility] CLIN[facility] Aft, Farzaneh Bell MD PhD [address] [place] [address] Lump or mass in breast; Mammographic microcalcification Social History Tobacco Use Types Packs/Day Years Used Date Smoking Tobacco: Former Alcohol Use Standard Drinks/Week Comments No 0 (1 standard drink = 0.6 oz pur e alcohol) Comments Unknown Sex and Gender Information Value Date Recorded Sex Assigned at Not on file 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 ACC# ??Date Time ??Exam [id number] Jul 16, 2014 15:01:00 [facility] 46343 Diag Mammogram Unilateral R ?? Technologist(s): Preeti [...] FREEDMAN M.D. on Jul 16 2014 ??5:04P [id number] Procedure Note Provider, MD Tyler - 08/12/2016 RAMESH FREEDMAN M.D. NAYELI SPEARS, FINAL REPORT The radiology attending physician has personally reviewed this study, and has reviewed and/or edited this written report and agrees with it. ACC# Date Time Exam [id number] Jul 16, 2014 15:01:00 [facility] 33962 Diag Mammogram Unilateral R Technologist(s): Preeti Garcia; [...] FREEDMAN M.D. on Jul 16 2014 5:04P [id number] us Historical Provider MD GARCIA MAMMO PROCEDURES [...] agrees with it. ACC# ??Date Time ??Exam [id number] Jul 16, 2014 11:14:00 [facility] [id number] Consult Out Films (read) EXAMINATION: ?? READING OF OUTSIDE IMAGING EXAMINATION - diagnostic left breast mammogram dated 07/07/2014 containing 6 views, and digital screening mammogram dated 07/01/2014 containing 6 views ??from [facility]. DATE OF INTERPRETATION: 07/16/2014 HISTORY: 59-year-old female [...] images may or may not represent the [place] source data set and thus may contain [...] agrees with it. ACC# Date Time Exam [id number] Jul 16, 2014 11:14:00 [facility] [id number] Consult Out Films (read) EXAMINATION: READING OF OUTSIDE IMAGING EXAMINATION - diagnostic left breast mammogram dated 07/07/2014 containing 6 views, and digital screening mammogram dated 07/01/2014 containing 6 views from [facility]. DATE OF INTERPRETATION: 07/16/2014 HISTORY: 59-year-old female [...] images may or may not represent the [place] source data set and thus may contain [...] microcalcification documented in this encounter Care Teams Artificial Marble Worker Relationship Specialty Start Date End Date Antoinette Zhu MD [address] [address] PCP - General 08/01/13 07/26/16 documented as of this encounter
--- OUTSIDE RECORDS SUMMARY | 2024-04-26 09:37 | XMS_ITS | Encounter Summary ---
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 Dictating: Heaven Mercedes M.D. Service Dt: 10/25/2014 OPERATIVE REPORT [employer] MEMBER: Adriel Doll M.D. ANESTHESIA: The patient received [...] M.D. 11/05/2014 08:10 A Heaven Mercedes M.D. [facility] #[id number] Editing MT: TD: 10/25/2014 14:56:00 cc: Farzaneh [...] specimen (specimen) 10/28/2014 12:08 AM CDT Result [facility] Historical Provider LAB BLOOD ORDERABLES Deann l Result HISTORICAL RESULTS * DISCHARGE LABORATORY CUMULATIVE REPORT (10/28/2014) Narrative 10/28/2014 Ordered by an unspecified provider. Result [facility] Historical Provider LAB BLOOD ORDERABLES Deann l Result * Blood glucose, POC (10/27/2014 9:57 PM CDT) Glucose, POC, bld 126 70 - 199 mg/dl HISTORICAL RESULTS Blood specimen (specimen) 10/27/2014 9:57 PM CDT Result [facility] Farzaneh Ramey MD PhD LAB BLOOD ORDERABLES Final Result HISTORICAL RESULTS * Blood glucose, POC (10/27/2014 5:20 PM CDT) Glucose, POC, bld 94 70 - 199 mg/dl HISTORICAL RESULTS Blood specimen (specimen) 10/27/2014 5:20 PM CDT Result [facility] Farzaneh Ramey MD PhD LAB BLOOD ORDERABLES Final Result Performing Organization Address [facility] Phone Number HISTORICAL RESULTS * Serum vancomycin, trough drug level (10/27/2014 1:10 PM CDT) Vancomycin, trough 13.7 10.0 - 20.9 mcg/ml HISTORICAL RESULTS Comment: Interpretive Data Therapeutic Range: ?? Uncomplicated skin and soft tissue infections: 10-20 mcg/mL ?? All other infections: ??15-20 mcg/mL Current interpretive data was last revised on 12. Serum 10/27/2014 1:10 PM CDT Result [facility] Mary Diehl MD LAB BLOOD ORDERABLES Final Resul t Performing Organization Address [facility] Phone Number HISTORICAL RESULTS * Blood glucose, POC (10/27/2014 12:12 PM CDT) Glucose, POC, bld 104 70 - 199 mg/dl HISTORICAL RESULTS Blood specimen (specimen) 10/27/2014 12:12 PM CDT Result [facility] Farzaneh Ramey MD PhD LAB BLOOD ORDERABLES Final Result Performing Organization Address [facility] Phone Number HISTORICAL RESULTS * Blood glucose, POC (10/27/2014 7:22 AM CDT) Glucose, POC, bld 107 70 - 199 mg/dl HISTORICAL RESULTS Blood specimen (specimen) 10/27/2014 7:22 AM CDT Result [facility] Farzaneh Ramey MD PhD LAB BLOOD ORDERABLES Final Result Performing Organization Address [facility] de Phone Number HISTORICAL RESULTS [...] ORDERABLES Final Resul t Performing Organization Address [facility] Phone Number HISTORICAL RESULTS * Blood glucose, POC (10/26/2014 9:04 PM CDT) Glucose, POC, bld 133 70 - 199 mg/dl HISTORICAL RESULTS Blood specimen (specimen) 10/26/2014 9:04 PM CDT Farzaneh Ramey MD PhD LAB BLOOD ORDERABLES Final Result Performing Organization Address [facility] Phone Number HISTORICAL RESULTS * Blood glucose, POC (10/26/2014 5:02 PM CDT) Glucose, POC, bld 133 70 - 199 mg/dl HISTORICAL RESULTS Blood specimen (specimen) 10/26/2014 5:02 PM CDT Farzaneh Ramey MD PhD LAB BLOOD ORDERABLES Final Result Performing Organization Address [facility] Phone Number HISTORICAL RESULTS * Blood glucose, POC (10/26/2014 12:30 PM CDT) Glucose, POC, bld 95 70 - 199 mg/dl HISTORICAL RESULTS Blood specimen (specimen) 10/26/2014 12:30 PM CDT Farzaneh Ramey MD PhD LAB BLOOD ORDERABLES Final Result Performing Organization Address [facility] de Phone Number HISTORICAL RESULTS * Blood glucose, POC (10/26/2014 7:55 AM CDT) Glucose, POC, bld 124 70 - 199 mg/dl HISTORICAL RESULTS Blood specimen (specimen) 10/26/2014 7:55 AM CDT Result [facility] Farzaneh Ramey MD PhD LAB BLOOD ORDERABLES Final Result Performing Organization Address [facility] de Phone Number HISTORICAL RESULTS [...] ORDERABLES Final Resul t Performing Organization Address [facility] de Phone Number HISTORICAL RESULTS [...] ORDERABLES Final Resul t Performing Organization Address [facility] de Phone Number HISTORICAL RESULTS * Blood glucose, POC (10/25/2014 9:08 PM CDT) Glucose, POC, bld 99 70 - 199 mg/dl HISTORICAL RESULTS Blood specimen (specimen) 10/25/2014 9:08 PM CDT Farzaneh Ramey MD PhD LAB BLOOD ORDERABLES Final Result Performing Organization Address [facility] de Phone Number HISTORICAL RESULTS * Blood glucose, POC (10/25/2014 5:42 PM CDT) Glucose, POC, bld 106 70 - 199 mg/dl HISTORICAL RESULTS Blood specimen (specimen) 10/25/2014 5:42 PM CDT Farzaneh Ramey MD PhD LAB BLOOD ORDERABLES Final Result Performing Organization Address [facility] de Phone Number HISTORICAL RESULTS * Aerobic/anaerobic [...] Performing Organization Address [facility] de Phone Number HISTORICAL RESULTS * Blood glucose, POC (10/25/2014 12:37 PM CDT) Glucose, POC, bld 96 70 - 199 mg/dl HISTORICAL RESULTS Blood specimen (specimen) 10/25/2014 12:37 PM CDT Farzaneh Ramey MD PhD LAB BLOOD ORDERABLES Final Result Performing Organization Address [facility] de Phone Number HISTORICAL RESULTS * Blood glucose, POC (10/25/2014 8:26 AM CDT) Glucose, POC, bld 162 70 - 199 mg/dl HISTORICAL RESULTS Blood specimen (specimen) 10/25/2014 8:26 AM CDT Farzaneh Ramey MD PhD LAB BLOOD ORDERABLES Final Result Performing Organization Address [facility] de Phone Number HISTORICAL RESULTS [...] RESULTS - 10/28/2014 12:52 PM CDT ? [facility] ?[address] [facility] [address] ?[place], [place] [address] ? Patient Name: ??MOHSEN MARQUES ? Med Rec Number: [id number] ? Fin Number: ?[id number] ? Date: ?1955 ? Sex/Age: ? Female 59 years ? Admit Date: ?10/23/2014 ? Discharge Date: 10/28/2014 ? Doctor: ?Aft , Farzaneh L ? Facility: ?[facility] ? Location: ?[address] [address] 01 ?* Abnormal ??A Alert ??f Footnote [...] L ORDERABLES Final Result Performing Organization Address [facility] de Phone Number HISTORICAL RESULTS * Blood glucose, POC (10/24/2014 7:26 PM CDT) Glucose, POC, bld 131 70 - 199 mg/dl HISTORICAL RESULTS Blood specimen (specimen) 10/24/2014 7:26 PM CDT Farzaneh Ramey MD PhD LAB BLOOD ORDERABLES Final Result Performing Organization Address [facility] de Phone Number HISTORICAL RESULTS [...] M.D. FINAL REPORT ACC# ??Date Time ??Exam [id number] Oct 24, 2014 14:53:00 [id number] Fluid Drain Soft tissue EXAMINATION: ?PERCUTANEOUS DRAINAGE [...] was obtained. ??Prior to beginning the procedure, Boston Protocol was used to confirm the patient's [...] collection before dilating the tract to 12 sinhala. ??A 12 Bangladeshi Lincoln loop was then advanced over the guidewire, [...] GERARDO MC M.D. on Oct ??2014 ??6:20P [id number] Procedure Note Provider, MD Tyler - 08/12/2016 GERARDO MC M.D. FINAL REPORT ACC# Date Time Exam [id number] Oct 24, 2014 14:53:00 [id number] Fluid Drain Soft tissue EXAMINATION: PERCUTANEOUS DRAINAGE [...] was obtained. Prior to beginning the procedure, Boston Protocol was used to confirm the patient's [...] collection before dilating the tract to 12 sinhala. A 12 Bangladeshi Lincoln loop was then advanced over the guidewire, [...] Requested By: ADRIEL MANCIA M.D. Dictated By: GREARDO MC M.D. on Oct 24 2014 6:20P This document has been electronically signed by: GERARDO MC M.D. on Oct 24 2014 6:20P [id number] us Historical Provider MD GARCIA US PROCEDURES [...] L ORDERABLES Final Result Performing Organization Address [facility] de Phone Number HISTORICAL RESULTS * Blood glucose, POC (10/24/2014 1:14 PM CDT) Glucose, POC, bld 84 70 - 199 mg/dl HISTORICAL RESULTS Blood specimen (specimen) 10/24/2014 1:14 PM CDT Farzaneh Ramey MD PhD LAB BLOOD ORDERABLES Final Result Performing Organization Address [facility] Phone Number HISTORICAL RESULTS * (ABNORMAL) Serum [...] ORDERABLES Fi nal Result Performing Organization Address [facility] de Phone Number HISTORICAL RESULTS [...] updated copy of the Tool Book at [email or web address] Current Interpretive Data was last revised 2011. Plasma 10/24/2014 11:1 1 AM CDT Historical Provider MD LAB BLOOD ORDERABLES Deann l Result Performing Organization Address [facility] Co de Phone Number HISTORICAL RESULTS * Blood glucose, POC (10/24/2014 8:51 AM CDT) Glucose, POC, bld 101 70 - 199 mg/dl HISTORICAL RESULTS Blood specimen (specimen) 10/24/2014 8:51 AM CDT Farzaneh Ramey MD PhD LAB BLOOD ORDERABLES Final Result Performing Organization Address [facility] Co de Phone Number HISTORICAL RESULTS * All Microbiology Report Section (10/24/2014 12:00 AM CDT) 10/24/2014 Narrative HISTORICAL RESULTS - 10/28/2014 12:52 PM CDT ? [facility] ?[address] [facility] [address] ?[place], [place] [address] ? Patient Name: ??MOHSEN MARQUES ? Med Rec Number: [id number] ? Fin Number: ?[id number] ? Date: ?1955 ? Sex/Age: ? Female 59 years ? Admit Date: ?10/23/2014 ? Discharge Date: 10/28/2014 ? Doctor: ?Aft , Farzaneh L ? Facility: ?[facility] ? Location: ?[address] [address] 01 ?* Abnormal ??A Alert ??f Footnote [...] L ORDERABLES Final Result Performing Organization Address [facility] Co de Phone [...] ORDERABLES Fi nal Result Performing Organization Address [facility] de Phone Number HISTORICAL RESULTS [...] ORDERABLES Fi nal Result Performing Organization Address [facility] de Phone Number HISTORICAL RESULTS * Blood glucose, POC (10/23/2014 8:57 PM CDT) Glucose, POC, bld 156 70 - 199 mg/dl HISTORICAL RESULTS Blood specimen (specimen) 10/23/2014 8:57 PM CDT Farzaneh Ramey MD PhD LAB BLOOD ORDERABLES Final Result Performing Organization Address [facility] de Phone Number HISTORICAL RESULTS * Blood glucose, POC (10/23/2014 4:19 PM CDT) Glucose, POC, bld 154 70 - 199 mg/dl HISTORICAL RESULTS Blood specimen (specimen) 10/23/2014 4:19 PM CDT Farzaneh Ramey MD PhD LAB BLOOD ORDERABLES Final Result Performing Organization Address [facility] de Phone Number HISTORICAL RESULTS [...] (specimen) 10/23/2014 9:08 AM CDT Anastasia Riley GENERAL CLAIMS AGENT LAB BLOOD ORDERABLES Fin al Result HISTORICAL [...] and children were not included. ??(Diabetes Care 31:[id number], 2008). ??The eAG is not equivalent to a fasting glucose. Blood specimen (specimen) 10/23/2014 9:08 AM CDT Anastasia Riley GENERAL CLAIMS AGENT LAB BLOOD ORDERABLES Fin al Result Performing Organization Address [facility] de Phone Number HISTORICAL RESULTS * Blood glucose, POC (10/23/2014 8:26 AM CDT) Glucose, POC, bld 102 70 - 199 mg/dl HISTORICAL RESULTS Blood specimen (specimen) 10/23/2014 8:26 AM CDT Farzaneh Ramey MD PhD LAB BLOOD ORDERABLES Final Result Performing Organization Address [facility] de Phone Number HISTORICAL RESULTS * Blood glucose, POC (10/23/2014 3:20 AM CDT) Glucose, POC, bld 111 70 - 199 mg/dl HISTORICAL RESULTS Blood specimen (specimen) 10/23/2014 3:20 AM CDT Farzaneh Ramey MD PhD LAB BLOOD ORDERABLES Final Result Performing Organization Address [facility] de Phone Number HISTORICAL RESULTS [...] performance characteristics have been verified by the [facility]. Current Interpretive Data was last revised on 2013. Narrative HISTORICAL RESULTS - 10/28/2014 7:16 AM CDT No growth Historical Provider MD DAILEY MICROBIOLOGY - GENERA L ORDERABLES Final Result Performing Organization Address [facility] de Phone Number HISTORICAL RESULTS [...] performance characteristics have been verified by the [facility]. Current Interpretive Data was last revised on 2013. Narrative HISTORICAL RESULTS - 10/28/2014 7:16 AM CDT No growth Historical Provider MD DAILEY MICROBIOLOGY - GENERA L ORDERABLES Final Result Performing Organization Address [facility] de Phone Number HISTORICAL RESULTS [...] organism identification may be performed using the [employer] Nanosphere Gram Positive Blood Culture Assay. ??The Nanosphere assay detects microbial DNA in positive blood culture broth via hybridization of target DNA to capture oligonucleotides on a microarray. ??This assay has been cleared by the [place] Food and Drug Administration and its performance characteristics have been verified by the [facility]. Current Interpretive Data was last revised on 2013. Narrative HISTORICAL RESULTS - 10/28/2014 7:16 AM CDT No growth Historical Provider LAB MICROBIOLOGY - GENERA L ORDERABLES Final Result Performing Organization Address [facility] de Phone Number HISTORICAL RESULTS * All Microbiology Report Section (10/23/2014 12:00 AM CDT) 10/23/2014 Narrative HISTORICAL RESULTS - 10/28/2014 12:52 PM CDT ? [facility] ?[address] [facility] [address] ?[place], [place] [address] ? Patient Name: ??MOHSEN MARQUES ? Med Rec Number: [id number] ? Fin Number: ?[id number] ? Date: ?1955 ? Sex/Age: ? Female 59 years ? Admit Date: ?10/23/2014 ? Discharge Date: 10/28/2014 ? Doctor: ?Aft , Farzaneh L ? Facility: ?[facility] ? Location: ?[address] [address] 01 ?* Abnormal ??A Alert ??f Footnote [...] identification may be ? performed using the [employer] Nanosphere Gram Positive Blood ? Culture Assay. ??The Nanosphere assay detects microbial DNA in ? positive blood culture broth via hybridization of target DNA to ? capture oligonucleotides on a microarray. ??This assay has been ? cleared by the [place] Food and Drug Administration and ? its performance characteristics have been verified by the ? [facility].Current ? Interpretive Data was last revised on 2013. ? us Historical Provider LAB MICROBIOLOGY - GENERA L ORDERABLES Final Result HISTORICAL RESULTS * All Microbiology Report Section (10/23/2014 12:00 AM CDT) 10/23/2014 Narrative HISTORICAL RESULTS - 10/28/2014 12:52 PM CDT ? [facility] ?[address] [facility] [address] ?[place], [facility] [address] ? Patient Name: ??MOHSEN MARQUES ? Med Rec Number: [id number] ? Fin Number: ?[id number] ? Date: ?1955 ? Sex/Age: ? Female 59 years ? Admit Date: ?10/23/2014 ? Discharge Date: 10/28/2014 ? Doctor: ?Aft , Farzaneh L ? Facility: ?[facility] ? Location: ?[address] [address] 01 ?* Abnormal ??A Alert ??f Footnote [...] identification may be ? performed using the [employer] Nanosphere Gram Positive Blood ? Culture Assay. ??The Nanosphere assay detects microbial DNA in ? positive blood culture broth via hybridization of target DNA to ? capture oligonucleotides on a microarray. ??This assay has been ? cleared by the [place] Food and Drug Administration and ? its performance characteristics have been verified by the ? [facility].Current ? Interpretive Data was last revised on 2013. ? us Historical Provider MD LAB MICROBIOLOGY - GENERA L ORDERABLES Final Result HISTORICAL RESULTS * All Microbiology Report Section (10/23/2014 12:00 AM CDT) 10/23/2014 Narrative HISTORICAL RESULTS - 10/28/2014 12:52 PM CDT ? [facility] ?[address] [facility] [address] ?[place], [place] [address] ? Patient Name: ??MOHSEN MARQUES ? Med Rec Number: [id number] ? Fin Number: ?[id number] ? Date: ?1955 ? Sex/Age: ? Female 59 years ? Admit Date: ?10/23/2014 ? Discharge Date: 10/28/2014 ? Doctor: ?Aft , Farzaneh L ? Facility: ?[facility] ? Location: ?[address] [address] 01 ?* Abnormal ??A Alert ??f Footnote [...] characteristics have been verified by the ? [facility].Current ? Interpretive Data was last revised on 2013. ? Historical Provider MD LAB MICROBIOLOGY - GENERA L ORDERABLES Final Result Performing Organization Address [facility] de Phone Number HISTORICAL RESULTS * Blood glucose, POC (10/22/2014 7:53 PM CDT) Glucose, POC, bld 128 70 - 199 mg/dl HISTORICAL RESULTS Blood specimen (specimen) 10/22/2014 7:53 PM CDT Historical Provider LAB BLOOD ORDERABLES Deann l Result Performing Organization Address [facility] de Phone Number HISTORICAL RESULTS * Urinalysis [...] BLOOD ORDERABLES Final Result Performing Organization Address [facility] de Phone Number HISTORICAL RESULTS [...] BLOOD ORDERABLES Final Result Performing Organization Address [facility] de Phone Number HISTORICAL RESULTS * Serum troponin I (10/22/2014 7:47 PM CDT) Troponin I <0.03 0.00 - 0.03 ng/ml HISTORICAL RESULTS Comment: Interpretive Data Serial determinations are recommended for the diagnosis of myocardial infarction (Third [place] Definition of Myocardial Infarction. ??J Am Wang Cardiol 2012;60:1581-98). Current interpretive data was last revised on 13. Serum 10/22/2014 7:47 PM CDT Roshni Goel MD LAB BLOOD ORDERABLES Final Result Performing Organization Address [facility] Co de Phone [...] agrees with it. ACC# ??Date Time ??Exam [id number] Oct 22, 2014 19:16:00 [id number] Chest 2 views Frontl & Lat EXAMINATION: [...] CAMARA M.D. on Oct 23 2014 ??9:05A [id number] Procedure Note Provider, MD Tyler - 08/12/2016 Avery HARRIS M.D. FINAL REPORT The radiology attending physician has personally reviewed this study, and has reviewed and/or edited this written report and agrees with it. ACC# Date Time Exam [id number] Oct 22, 2014 19:16:00 [id number] Chest 2 views Frontl & Lat EXAMINATION: [...] CAMARA M.D. on Oct 23 2014 9:05A [id number] us Historical Provider MD GARCIA XR PROCEDURES [...] complication documented in this encounter Care Teams Cartridge Loader Relationship Specialty Start Date End Date Antoinette Zhu MD [address] [address] PCP - General 08/01/13 07/26/16 documented as of this encounter
--- OUTSIDE RECORDS SUMMARY | 2024-04-26 09:37 | XMS_ITS | Encounter Summary ---
Author Organization [facility] Facility Care Team Providers Care Magento Web Developer Name Role Phone Antoinette Zhu MD Primary Care Provider [phone] Encounter Details Date Type Department Care Team (Late st Contact Info) Description 08/13/2014 - 08/13/2014 11:59 PM CDT Hospital Encounter [facility] CLINCONV Aft, Sharon Bell MD PhD [address] [place] [address] Malignant neoplasm of breast (female) (HCC) Social History Tobacco Use Types Packs/Day Years Used Date Smoking Tobacco: Former Alcohol Use Standard Drinks/Week Comments No 0 (1 standard drink = 0.6 oz pur e alcohol) Comments Unknown Sex and Gender Information Value Date Recorded Sex Assigned at Not on file 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 ACC# ??Date Time ??Exam [id number] Aug 13, 2014 12:26:00 [id number] BONE IMG/W.B. EXAMINATION: ?BONE SCINTIGRAPHY (WHOLE-BODY) DATE [...] agrees with it. ACC# Date Time Exam [id number] Aug 13, 2014 12:26:00 [id number] BONE IMG/W.B. EXAMINATION: BONE SCINTIGRAPHY (WHOLE-BODY) DATE [...] agrees with it. ACC# ??Date Time ??Exam [id number] Aug 13, 2014 08:22:[id number] Chest with contrast [id number] Aug 13, 2014 08:22:[address] Abd & Pelvis with cont ACC# ??Date Time ??Exam [id number] Aug 13, 2014 08:22:[address] Chest with contrast [id number] Aug 13, 2014 08:22:[address] Abd & Pelvis with cont EXAMINATION: [...] the upper pole right kidney which are ugf-kqxly-cr-characterize with CT. No hydronephrosis is seen. There [...] GUILLEN M.D. on Aug 13 2014 ??3:05P [id number] Procedure Note Provider, MD Tyler - 08/12/2016 GRETA GUILLEN M.D. KEILY PEREA M.D. FINAL REPORT The radiology attending physician has personally reviewed this study, and has reviewed and/or edited this written report and agrees with it. ACC# Date Time Exam [id number] Aug 13, 2014 08:22:[id number] Chest with contrast [id number] Aug 13, 2014 08:22:[address] Abd & Pelvis with cont ACC# Date Time Exam [id number] Aug 13, 2014 08:22:[address] Chest with contrast [id number] Aug 13, 2014 08:22:[address] Abd & Pelvis with cont EXAMINATION: [...] the upper pole right kidney which are efd-znfqk-fb-characterize with CT. No hydronephrosis is seen. There [...] GUILLEN M.D. on Aug 13 2014 3:05P [id number] us Historical Provider MD GARCIA CT PROCEDURES [...] agrees with it. ACC# ??Date Time ??Exam [id number] Aug 13, 2014 08:22:[address] Chest with contrast [id number] Aug 13, 2014 08:22:[address] Abd & Pelvis with cont ACC# ??Date Time ??Exam [id number] Aug 13, 2014 08:22:[id number] Chest with contrast [id number] Aug 13, 2014 08:22:[address] Abd & Pelvis with cont EXAMINATION: [...] the upper pole right kidney which are uwp-nkkhe-vp-characterize with CT. No hydronephrosis is seen. There [...] GUILLEN M.D. on Aug 13 2014 ??3:05P [id number] Procedure Note Provider, MD Tyler - 08/12/2016 GRETA GUILLEN M.D. KEILY PEREA M.D. FINAL REPORT The radiology attending physician has personally reviewed this study, and has reviewed and/or edited this written report and agrees with it. ACC# Date Time Exam [id number] Aug 13, 2014 08:22:[address] Chest with contrast [id number] Aug 13, 2014 08:22:[address] Abd & Pelvis with cont ACC# Date Time Exam [id number] Aug 13, 2014 08:22:[id number] Chest with contrast [id number] Aug 13, 2014 08:22:[address] Abd & Pelvis with cont EXAMINATION: [...] the upper pole right kidney which are grn-sfxme-gh-characterize with CT. No hydronephrosis is seen. There [...] GUILLEN M.D. on Aug 13 2014 3:05P [id number] us Historical Provider IMMichael CT PROCEDURES Final R esult documented in this encounter Visit Diagnoses Diagnosis Malignant neoplasm of breast (female) (HCC) Malignant neoplasm of breast (female), unspecified site documented in this encounter Care Teams Magento Web Developer Relationship Specialty Start Date End Date Antoinette Zhu MD [address] [id number] PCP - General 08/01/13 07/26/16 documented as of this encounter
--- OUTSIDE RECORDS SUMMARY | 2024-04-26 09:37 | XMS_ITS | Encounter Summary ---
Author Organization [facility] Facility Care Team Providers Care Oil Rag Washer Name Role Phone Antoinette Zhu MD Primary Care Provider [phone] Encounter Details Date Type Department Care Team (Late st Contact Info) Description 09/09/2014 - 09/09/2014 11:59 PM CDT Hospital Encounter [facility] Aft, Farzaneh Bell MD PhD [address] [place] [address] Social History Tobacco Use Types Packs/Day Years Used Date Smoking Tobacco: Former Alcohol Use Standard Drinks/Week Comments No 0 (1 standard drink = 0.6 oz pur e alcohol) Comments Unknown Sex and Gender Information Value Date Recorded Sex Assigned at Not on file 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
--- OUTSIDE RECORDS SUMMARY | 2024-04-26 09:37 | XMS_ITS | Encounter Summary ---
Author Organization [facility] Facility Care Team Providers Care Occupational Therapy Aides Teacher Name Role Phone Antoinette Zhu MD Primary Care Provider [phone] Encounter Details Date Type Department Care Team (Late st Contact Info) Description 10/20/2014 - 10/20/2014 11:59 PM CDT Hospital Encounter [facility] CLINCONV Khris Arthur MD [address] [facility] [address] [place] [address] Malignant neoplasm of breast (female) (CMS/HCC) Social History Tobacco Use Types Packs/Day Years Used Date Smoking Tobacco: Former Alcohol Use Standard Drinks/Week Comments No 0 (1 standard drink = 0.6 oz pur e alcohol) Comments Unknown Sex and Gender Information Value Date Recorded Sex Assigned at Not on file 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
--- OUTSIDE RECORDS SUMMARY | 2024-04-26 09:37 | XMS_ITS | Encounter Summary ---
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 Gender Identity Not on file Sexual [...] AM CDT Patient: Karly Marques Reg No: [id number] U H #: [id number] Admit Dt.: 09/23/2014 : 1955 Pt Type: 200 Room No: 48732 Attending: Farzaneh Ramey MD, PHD Surgeon: Farzaneh [...] 10:02 A Farzaneh Ramey MD, PHD RLA/cheryl #[id number] Editing MT: TD: 09/24/2014 09:53:00 cc: Farzaneh [...] ORDERABLES Fin al Result Performing Organization Address City/[facility] de Phone Number HISTORICAL RESULTS * (ABNORMAL) Blood potassium, mixed venous (09/24/2014 2:38 AM CDT) Potassium, bld 5.3(H) 3.3 - 4.9 mmol/L HISTORICAL RESULTS Mixed venous blood 09/24/2014 2:38 AM CDT Melvin Dc MD LAB BLOOD ORDERABLES Fi nal Result Performing Organization Address City/[facility] de Phone Number HISTORICAL RESULTS * [...] Performing Organization Address [facility] Phone Number HISTORICAL RESULTS * Blood check sample (09/23/2014 10:53 AM CDT) ABO, Rho(D) O Positive HISTORI JOY RESULTS Blood specimen (specimen) 09/23/2014 10:53 AM CDT Farzaneh Ramey MD PhD LAB BLOOD ORDERABLES Final Result Performing Organization Address [facility] Phone Number HISTORICAL RESULTS * Blood glucose, POC (09/23/2014 8:32 AM CDT) Glucose, POC, bld 104 70 - 199 mg/dl HISTORICAL RESULTS Blood specimen (specimen) 09/23/2014 8:32 AM CDT Farzaneh Ramey MD PhD LAB BLOOD ORDERABLES Final Result Performing Organization Address [facility] Phone Number HISTORICAL RESULTS * Blood ABO, Rh, indirect ab screen (09/23/2014 8:29 AM CDT) ABO, Rho(D) O Positive HISTORI JOY RESULTS Dilcia, indirect Negative HISTORICAL RESULTS Blood specimen (specimen) 09/23/2014 8:29 AM CDT Farzaneh Ramey MD PhD LAB BLOOD ORDERABLES Final Result Performing Organization Address [facility] de Phone Number HISTORICAL RESULTS * [...] health documented in this encounter Care Teams Chief Guard Relationship Specialty Start Date End Date Antoinette Zhu MD [address] [employer] [address] PCP - General 08/01/13 07/26/16 documented as of this encounter
--- OUTSIDE RECORDS SUMMARY | 2024-04-26 09:37 | XMS_ITS | Encounter Summary ---
Author Organization 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 FINAL REPORT ACC# ??Date Time ??Exam [id number] Oct 21, 2014 11:08:00 [id number] Chest 1 view Frontal EXAMINATION: ?SINGLE VIEW [...] BETH M.D. on Oct 21 2014 11:10A [id number] Procedure Note Provider, MD Tyler - 08/12/2016 CECELIA BETH M.D. FINAL REPORT ACC# Date Time Exam [id number] Oct 21, 2014 11:08:00 [id number] Chest 1 view Frontal EXAMINATION: SINGLE VIEW [...] BETH M.D. on Oct 21 2014 11:10A [id number] Result [facility] Historical Provider IMG XR PROCEDURES Final [...] prostate documented in this encounter Care Teams Footwear Factory Worker Relationship Specialty Start Date End Date Antoinette Zhu MD [address] [address] PCP - General 08/01/13 07/26/16 documented as of this encounter
--- OUTSIDE RECORDS SUMMARY | 2024-04-26 09:37 | XMS_ITS | Encounter Summary ---
Author Organization [facility] Healthcare Address [address] [place] [address] Care Team Providers Care Meeting Manager Name Role Phone Antoinette Zhu MD Primary Care Provider [phone] Encounter Details Date Type Department Care Team (Late st Contact Info) Description 08/01/2013 3:51 PM CDT - 08/01/2013 11:59 PM CDT [place] [address] 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
--- OUTSIDE RECORDS SUMMARY | 2024-04-26 09:37 | XMS_ITS | Encounter Summary ---
Author Organization [facility] Healthcare Address [address] [place] [address] Care Team Providers Care Splash Line Operator Name Role Phone Antoinette Zhu MD Primary Care Provider [phone] [phone] Encounter Details Date Type Department Care Team (Late st Contact Info) Description 04/21/2014 8:37 PM CONCRETE BUCKET LOADER - 04/22/2014 4:13 AM [facility] Hospital [place] [address] [place] [address] Acute gastritis; Esophageal reflux; Shortness of breath; [...] on file Legal Sex Female 12:24 AM CONCRETE BUCKET LOADER Gender Identity Not on file Sexual [...] W CONTRAST Routine 04/22/2014 2 :41 AM CONCRETE BUCKET LOADER DISCHARGE LABORATORY CUMULATIVE REPORT 04/22/2014 NASOPHARYNGEAL MUCUS INFLUENZA A, B AG Routine 04/21/2014 10:17 PM CONCRETE BUCKET LOADER XR CHEST 1 VIEW Routine 04/21/2014 10:07 PM CONCRETE BUCKET LOADER PLASMA TROPONIN I Routine 04/21/2014 9:4 5 PM CONCRETE BUCKET LOADER PLASMA LIPASE Routine 04/21/2014 9:45 PM CONCRETE BUCKET LOADER PLASMA COMPREHENSIVE METABOLIC PANEL Routine 04/21/2014 9:45 PM CONCRETE BUCKET LOADER PLASMA AMYLASE Routine 04/21/2014 9:45 PM CONCRETE BUCKET LOADER BLOOD D-DIMER Routine 04/21/2014 9:45 PM CONCRETE BUCKET LOADER BLOOD CELL COUNT (CBC), MORPHOLOGIC EXAM Routine 04/21/2014 9:45 PM CONCRETE BUCKET LOADER BLOOD B-TYPE NATRIURETIC PEPTIDE (BNP) Routine 04/21/2014 9:45 PM CONCRETE BUCKET LOADER URINALYSIS Routine 04/21/2014 3:30 PM CONCRETE BUCKET LOADER ELECTROCARDIOGRAPHY (ECG) 04/21/2014 documented in this encounter Results * CT Chest W Contrast (04/22/2014 2:41 AM CONCRETE BUCKET LOADER) Anatomical Region Laterality Modality Body N/A Computed Tomogra phy 04/22/2014 2:41 AM CONCRETE BUCKET LOADER Narrative 04/22/2014 10:16 AM CONCRETE BUCKET LOADER DATE OF EXAM: ??Apr 22 2014 ??2:41AM Acc#: ??[id number] ??ECT 0123 - CT Chest PE W [...] is made with the study of 07/08/13. Assemblies And Installations Inspector radiograph demonstrates no acute findings. ??Images reviewed [...] ACUTE EVENT IS SEEN. Results called by [facility]. ?? BRIMMING MACHINE OPERATOR: ??DD2 TRANSCRIBE DATE/TIME: ??Apr 22 2014 10:02A RADIOLOGIST: ??LINSEY DSOUZA M.D. ??READ ON: ??Apr 22 2014 ??8:31A ORDERING DR: GREGORIA KNOWLES M.D. THIS DOCUMENT HAS BEEN ELECTRONICALLY SIGNED BY: ??LINSEY DSOUZA M.D. ??ON: ??Apr 22 2014 10:16A Procedure Note Provider, MD Tyler - 08/12/2016 DATE OF EXAM: Apr 22 2014 2:41AM Acc#: [id number] ECT 0123 - CT Chest PE W [...] is made with the study of 07/08/13. Assemblies And Installations Inspector radiograph demonstrates no acute findings. Images reviewed [...] ACUTE EVENT IS SEEN. Results called by [facility]. BRIMMING MACHINE OPERATOR: DD2 TRANSCRIBE DATE/TIME: Apr 22 2014 10:02A [...] Influenza A, B ag (04/21/2014 10:17 PM CONCRETE BUCKET LOADER) Influenza A Ag Negative Negative HISTO RICAL RESULTS Comment:This test has an est imated 70% sensitivity and 90% specificity. Influ B ag Negative Negative HISTORICA L RESULTS Comment:This test has an est imated 70% sensitivity and 90% specificity. Nasopharynx swab 04/21/2014 10:17 PM CONCRETE BUCKET LOADER us Gregoria Knowles MD LAB BLOOD ORDERABLES Final Resu lt HISTORICAL RESULTS * XR Chest 1 View (04/21/2014 10:07 PM CONCRETE BUCKET LOADER) Anatomical Region Laterality Modality Body, Chest N/A Radiographic Lizeth ging 04/21/2014 10:0 7 PM CONCRETE BUCKET LOADER Narrative 04/22/2014 11:10 AM CONCRETE BUCKET LOADER DATE OF EXAM: ??Apr 21 2014 10:07PM Acc#: ??[id number] ??EDX 0031 - XR Chest Portable ?? DIAGNOSIS: ??NAUSEA, SOB, CHEST PALPITATION CLINICAL HISTORY: ?? Breathing Problems_Breathing Problems RESULT: \ PORTABLE CHEST, 04/21/14, 2158 HOURS: HISTORY: ??Chest pain, difficulty breathing. Comparison with 11/11/13. Suboptimal inflation noted. ??No infiltrate nor effusion is seen. ??Slight haziness in the lung bases may represent under penetration. ?? IMPRESSION: ?\ NO ACUTE PULMONARY DISEASE. ?? BRIMMING MACHINE OPERATOR: ??DD2 TRANSCRIBE DATE/TIME: ??Apr 22 2014 ??9:13A RADIOLOGIST: ??LILY DRIVER M.D. ??READ ON: ??Apr 22 2014 ??8:15A ORDERING DR: GREGORIA KNOWLES M.D. THIS DOCUMENT HAS BEEN ELECTRONICALLY SIGNED BY: ??LILY DRIVER M.D. ??ON: ??Apr 22 2014 11:10A Procedure Note Provider, MD Tyler - 08/12/2016 DATE OF EXAM: Apr 21 2014 10:07PM Acc#: [id number] EDX 0031 - XR Chest Portable DIAGNOSIS: NAUSEA, SOB, CHEST PALPITATION CLINICAL HISTORY: Breathing Problems_Breathing Problems RESULT: \ PORTABLE CHEST, 04/21/14, 2158 HOURS: HISTORY: Chest pain, difficulty breathing. Comparison with 11/11/13. Suboptimal inflation noted. No infiltrate nor effusion is seen. Slight haziness in the lung bases may represent under penetration. IMPRESSION: \ NO ACUTE PULMONARY DISEASE. BRIMMING MACHINE OPERATOR: DD2 TRANSCRIBE DATE/TIME: Apr 22 2014 9:13A RADIOLOGIST: LILY DRIVER M.D. READ ON: Apr 22 2014 8:15A ORDERING DR: GRGEORIA KNOWLES M.D. THIS DOCUMENT HAS BEEN ELECTRONICALLY SIGNED BY: LILY DRIVER M.D. ON: Apr 22 2014 11:10A Historical Provider IMG XR PROCEDURES Final R esult * (ABNORMAL) Blood D-dimer (04/21/2014 9:45 PM CONCRETE BUCKET LOADER) Pathologist [facility] D-dimer 2.2(H) 0.0 - 0.5 mcg/ml FEU HISTORICAL RESULTS Comment: The D-Dimer result should not be used as the sole indicator to rule in or exclude a diagnosis of Pulmonary Embolism or Deep Vein Thrombosis. Blood specimen (specimen) 04/21/2014 9:45 PM CONCRETE BUCKET LOADER Gregoria Knowles MD LAB BLOOD ORDERABLES Final Resu lt HISTORICAL RESULTS * (ABNORMAL) Blood cell count (CBC), morphologic exam (04/21/2014 9:45 PM CONCRETE BUCKET LOADER) WBC 11.8(H) 3.8 - 9.8 K/cumm HISTORICAL [...] RESULTS Blood specimen (specimen) 04/21/2014 9:45 PM CONCRETE BUCKET LOADER Gregoria Knowles MD LAB BLOOD ORDERABLES Final Resu lt HISTORICAL RESULTS * Blood B-type natriuretic peptide (BNP) (04/21/2014 9:45 PM CONCRETE BUCKET LOADER) Pathologist [facility] BNP 13 0 - 100 pg/ml HISTORICAL RESULTS Blood specimen (specimen) 04/21/2014 9:45 PM CONCRETE BUCKET LOADER Gregoria Knowles MD LAB BLOOD ORDERABLES Final Resu lt HISTORICAL RESULTS * Plasma troponin I (04/21/2014 9:45 PM CONCRETE BUCKET LOADER) Pathologist [facility] Troponin I <0.03 0.00 - 0.14 ng/ml HISTORICAL RESULTS Comment: Troponin Reference Ranges: Normal: ?0.00 - 0.14 ng/mL Indeterminate: ?0.15 - 0.50 ng/mL [place] / Cardiac Muscle Damage: ?>0.50 ng/mL Plasma 04/21/2014 9:45 PM CONCRETE BUCKET LOADER us Gregoria Knowles MD LAB BLOOD ORDERABLES Final Resu lt HISTORICAL RESULTS * (ABNORMAL) Plasma comprehensive metabolic panel (04/21/2014 9:45 PM CONCRETE BUCKET LOADER) BUN 10 8 - 24 mg/dl HISTORICAL [...] HISTORICAL RESULTS Comment: If this individual is -Guamanian, multiply result by 1.21 Repeated results of less than 60 is indicative of chronic kidney disease. MDRD formula has not been validated on individuals greater than 70 years old. Plasma 04/21/2014 9:45 PM CONCRETE BUCKET LOADER Gregoria Knowles MD LAB BLOOD ORDERABLES Final Resu lt Performing Organization Address [facility] Co de Phone Number HISTORICAL RESULTS * Plasma lipase (04/21/2014 9:45 PM CONCRETE BUCKET LOADER) Lip 29 20 - 50 Units/L HISTORICAL RESULTS Plasma 04/21/2014 9:45 PM CONCRETE BUCKET LOADER Gregoria Knowles MD LAB BLOOD ORDERABLES Final Resu lt Performing Organization Address [facility] de Phone Number HISTORICAL RESULTS * Plasma amylase (04/21/2014 9:45 PM CONCRETE BUCKET LOADER) [place], [address] 28 - 100 Units/L HISTORICAL RESULTS Plasma 04/21/2014 9:45 PM CONCRETE BUCKET LOADER Result [facility] Gregoria Knowles MD LAB BLOOD ORDERABLES Final Resu lt Performing Organization Address [facility] de Phone Number HISTORICAL RESULTS * (ABNORMAL) Urinalysis (04/21/2014 3:30 PM CONCRETE BUCKET LOADER) Color, ur Yellow HISTORICAL RESULTS Clarity, ur [...] Present HISTORICAL RESULTS Urine 04/21/2014 3:30 PM CONCRETE BUCKET LOADER Narrative HISTORICAL RESULTS - 04/21/2014 4:38 PM CONCRETE BUCKET LOADER Result negative for significant evidence of urinary [...] embolism documented in this encounter Care Teams Splash Line Operator Relationship Specialty Start Date End Date Antoinette Zhu MD [address] [address] PCP - General 08/01/13 07/26/16 documented as of this encounter
--- OUTSIDE RECORDS SUMMARY | 2024-04-26 09:37 | XMS_ITS | Encounter Summary ---
Author Organization [facility] Facility Care Team Providers Care Painter Ordnance Name Role Phone Antoinette Zhu MD Primary Care Provider [phone] Encounter Details Date Type Department Care Team (Late st Contact Info) Description 11/05/2014 - 11/05/2014 11:59 PM CDT Hospital Encounter [facility] Aft, Farzaneh Bell MD PhD [address] [place] [address] Encounter for fitting and adjustment of non-vascular catheter NEC Social History Tobacco Use Types Packs/Day Years Used Date Smoking Tobacco: Former Alcohol Use Standard Drinks/Week Comments No 0 (1 standard drink = 0.6 oz pur e alcohol) Comments Unknown Sex and Gender Information Value Date Recorded Sex Assigned at Not on file 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 ACC# ??Date Time ??Exam [id number] Nov 05, 2014 14:57:00 33532 Inj Sin/Abs,S&I [id number] Nov 05, 2014 14:57:00 18565 Inj Abscess Cat [id number] Nov 05, 2014 14:57:00 31316 Abscess TubeChg [id number] Nov 05, 2014 14:57:00 19866 Venancio Schaeffer ,S&I L [id number] Nov 05, 2014 14:57:00 32639 Sinus TR Inj TX ACC# ??Date Time ??Exam [id number] Nov 05, 2014 14:57:00 74065 Inj Sin/Abs,S&I [id number] Nov 05, 2014 14:57:00 60877 Inj Abscess Cat [id number] Nov 05, 2014 14:57:00 17343 Abscess TubeChg [id number] Nov 05, 2014 14:57:00 42515 Venancio Schaeffer ,S&I L [id number] Nov 05, 2014 14:57:00 67502 Sinus TR Inj TX EXAMINATION: ?DRAINAGE CATHETER EVALUATION AND ??EXCHANGE HISTORY: 59-year-old female with history of left radical mastectomy and large normal fluid collection under the left surgical site she had a 12 [place] loop placed the patient is gone from initially around 100 cc a day down to now between 40 and 50 per day. She does not flush the collection. ATTENDING PRESENCE: Dr. Duarte, the attending radiologist, was present from the beginning to the end of the procedure. SEDATION: The patient did not require conscious sedation for the procedure. TECHNIQUE: Prior to beginning the procedure, Purdys Protocol was used to confirm the patient's identity and planned procedure. Fluoroscopy time has been recorded in the electronic medical record. Maximum sterile barriers including cap, mask, hand hygiene, sterile gloves, sterile gown, large sterile drape and 2% chlorhexidine for cutaneous antisepsis were used. After obtaining a advance scout image the catheter was connected with dilute [...] a Melendez guidewire for a new 12 [place] loop catheter. ??Limited contrast injection confirmed appropriate [...] questions arise, please contact us by calling [phone]. ?? Requested By: Dictated By: ?? STEPH DURÁN ??on Nov 05 2014 ??3:57P This document has been electronically signed by: IBAN DUARTE M.D. on Nov 05 2014 ??5:14P [id number] Procedure Note Provider, MD Tyler - 08/12/2016 IBAN DUARTE M.D. STEPH DURÁN FINAL REPORT The radiology attending physician has personally reviewed this study, and has reviewed and/or edited this written report and agrees with it. ACC# Date Time Exam [id number] Nov 05, 2014 14:57:00 32101 Inj Sin/Abs,S&I [id number] Nov 05, 2014 14:57:00 05140 Inj Abscess Cat [id number] Nov 05, 2014 14:57:00 68062 Abscess TubeChg [id number] Nov 05, 2014 14:57:00 82691 Venancio Schaeffer Ch,S&I L [id number] Nov 05, 2014 14:57:00 98181 Sinus TR Inj TX ACC# Date Time Exam [id number] Nov 05, 2014 14:57:00 21453 Inj Sin/Abs,S&I [id number] Nov 05, 2014 14:57:00 43207 Inj Abscess Cat [id number] Nov 05, 2014 14:57:00 46433 Abscess Tubeg [id number] Nov 05, 2014 14:57:00 70425 Venancio Schaeffer ,S&I L [id number] Nov 05, 2014 14:57:00 36429 Sinus TR Inj TX EXAMINATION: DRAINAGE CATHETER EVALUATION AND EXCHANGE HISTORY: 59-year-old female with history of left radical mastectomy and large normal fluid collection under the left surgical site she had a 12 [place] loop placed the patient is gone from initially around 100 cc a day down to now between 40 and 50 per day. She does not flush the collection. ATTENDING PRESENCE: Dr. Duarte, the attending radiologist, was present from the beginning to the end of the procedure. SEDATION: The patient did not require conscious sedation for the procedure. TECHNIQUE: Prior to beginning the procedure, Purdys Protocol was used to confirm the patient's identity and planned procedure. Fluoroscopy time has been recorded in the electronic medical record. Maximum sterile barriers including cap, mask, hand hygiene, sterile gloves, sterile gown, large sterile drape and 2% chlorhexidine for cutaneous antisepsis were used. After obtaining a advance scout image the catheter was connected with dilute [...] a Melendez guidewire for a new 12 [place] loop catheter. Limited contrast injection confirmed appropriate [...] questions arise, please contact us by calling [phone]. Requested By: Dictated By: STEPH DURÁN on Nov 05 2014 3:57P This document has been electronically signed by: IBAN DUARTE M.D. on Nov 05 2014 5:14P [id number] us Historical Provider MD GARCIA IR PROCEDURES [...] agrees with it. ACC# ??Date Time ??Exam [id number] Nov 05, 2014 14:57:00 11323 Inj Sin/Abs,S&I [id number] Nov 05, 2014 14:57:00 99801 Inj Abscess Cat [id number] Nov 05, 2014 14:57:00 46738 Abscess TubeChg [id number] Nov 05, 2014 14:57:00 02194 Venancio Schaeffer Ch,S&I L [id number] Nov 05, 2014 14:57:00 92892 Sinus TR Inj TX ACC# ??Date Time ??Exam [id number] Nov 05, 2014 14:57:00 53886 Inj Sin/Abs,S&I [id number] Nov 05, 2014 14:57:00 99466 Inj Abscess Cat [id number] Nov 05, 2014 14:57:00 43968 Abscess TubeChg [id number] Nov 05, 2014 14:57:00 24394 Venancio Cath Ch,S&I L [id number] Nov 05, 2014 14:57:00 87466 Sinus TR Inj TX EXAMINATION: ?DRAINAGE CATHETER EVALUATION AND ??EXCHANGE HISTORY: 59-year-old female with history of left radical mastectomy and large normal fluid collection under the left surgical site she had a 12 [place] loop placed the patient is gone from initially around 100 cc a day down to now between 40 and 50 per day. She does not flush the collection. ATTENDING PRESENCE: Dr. Duarte, the attending radiologist, was present from the beginning to the end of the procedure. SEDATION: The patient did not require conscious sedation for the procedure. TECHNIQUE: Prior to beginning the procedure, Purdys Protocol was used to confirm the patient's identity and planned procedure. Fluoroscopy time has been recorded in the electronic medical record. Maximum sterile barriers including cap, mask, hand hygiene, sterile gloves, sterile gown, large sterile drape and 2% chlorhexidine for cutaneous antisepsis were used. After obtaining a advance scout image the catheter was connected with dilute [...] a Melendez guidewire for a new 12 [place] loop catheter. ??Limited contrast injection confirmed appropriate [...] questions arise, please contact us by calling [phone]. ?? Requested By: Dictated By: ?? STEPH DURÁN ??on Nov 05 2014 ??3:57P This document has been electronically signed by: IBAN DUARTE M.D. on Nov 05 2014 ??5:14P [id number] Procedure Note Provider, MD Tyler - 08/12/2016 IBAN DUARTE M.D. STEPH DURÁN FINAL REPORT The radiology attending physician has personally reviewed this study, and has reviewed and/or edited this written report and agrees with it. ACC# Date Time Exam [id number] Nov 05, 2014 14:57:00 81612 Inj Sin/Abs,S&I [id number] Nov 05, 2014 14:57:00 68109 Inj Abscess Cat [id number] Nov 05, 2014 14:57:00 11038 Abscess TubeChg [id number] Nov 05, 2014 14:57:00 52124 Drn Cath Ch,S&I L [id number] Nov 05, 2014 14:57:00 37971 Sinus TR Inj TX ACC# Date Time Exam [id number] Nov 05, 2014 14:57:00 80654 Inj Sin/Abs,S&I [id number] Nov 05, 2014 14:57:00 63811 Inj Abscess Cat [id number] Nov 05, 2014 14:57:00 12043 Abscess TubeChg [id number] Nov 05, 2014 14:57:00 26794 Drn Cath Ch,S&I L [id number] Nov 05, 2014 14:57:00 30489 Sinus TR Inj TX EXAMINATION: DRAINAGE CATHETER EVALUATION AND EXCHANGE HISTORY: 59-year-old female with history of left radical mastectomy and large normal fluid collection under the left surgical site she had a 12 [place] loop placed the patient is gone from initially around 100 cc a day down to now between 40 and 50 per day. She does not flush the collection. ATTENDING PRESENCE: Dr. Duarte, the attending radiologist, was present from the beginning to the end of the procedure. SEDATION: The patient did not require conscious sedation for the procedure. TECHNIQUE: Prior to beginning the procedure, Purdys Protocol was used to confirm the patient's identity and planned procedure. Fluoroscopy time has been recorded in the electronic medical record. Maximum sterile barriers including cap, mask, hand hygiene, sterile gloves, sterile gown, large sterile drape and 2% chlorhexidine for cutaneous antisepsis were used. After obtaining a advance scout image the catheter was connected with dilute [...] a Melendez guidewire for a new 12 [place] loop catheter. Limited contrast injection confirmed appropriate [...] questions arise, please contact us by calling [phone]. Requested By: Dictated By: STEPH DURÁN on Nov 05 2014 3:57P This document has been electronically signed by: IBAN DUARTE M.D. on Nov 05 2014 5:14P [id number] us Historical Provider MD GARCIA IR PROCEDURES Final R esult * Fistulogram Abscess Sinus Tract (11/05/2014 2:57 PM CDT) Anatomical Region Laterality Modality Head and Neck N/A Radiographic Lizeth ging 11/05/2014 2:57 PM CDT Narrative 11/05/2014 5:14 PM CDT vAery CHACON PA-C HO FINAL REPORT The radiology attending physician has personally reviewed this study, and has reviewed and/or edited this written report and agrees with it. ACC# ??Date Time ??Exam [id number] Nov 05, 2014 14:57:00 33998 Inj Sin/Abs,S&I [id number] Nov 05, 2014 14:57:00 75932 Inj Abscess Cat [id number] Nov 05, 2014 14:57:00 77231 Abscess TubeChg [id number] Nov 05, 2014 14:57:00 56289 Drn Cath Ch,S&I L [id number] Nov 05, 2014 14:57:00 74153 Sinus TR Inj TX ACC# ??Date Time ??Exam [id number] Nov 05, 2014 14:57:00 49330 Inj Sin/Abs,S&I [id number] Nov 05, 2014 14:57:00 48142 Inj Abscess Cat [id number] Nov 05, 2014 14:57:00 86836 Abscess TubeChg [id number] Nov 05, 2014 14:57:00 34647 Venancio Cath Ch,S&I L [id number] Nov 05, 2014 14:57:00 24786 Sinus TR Inj TX EXAMINATION: ?DRAINAGE CATHETER EVALUATION AND ??EXCHANGE HISTORY: 59-year-old female with history of left radical mastectomy and large normal fluid collection under the left surgical site she had a 12 [place] loop placed the patient is gone from initially around 100 cc a day down to now between 40 and 50 per day. She does not flush the collection. ATTENDING PRESENCE: Dr. Duarte, the attending radiologist, was present from the beginning to the end of the procedure. SEDATION: The patient did not require conscious sedation for the procedure. TECHNIQUE: Prior to beginning the procedure, Purdys Protocol was used to confirm the patient's identity and planned procedure. Fluoroscopy time has been recorded in the electronic medical record. Maximum sterile barriers including cap, mask, hand hygiene, sterile gloves, sterile gown, large sterile drape and 2% chlorhexidine for cutaneous antisepsis were used. After obtaining a advance scout image the catheter was connected with dilute [...] a Melendez guidewire for a new 12 [place] loop catheter. ??Limited contrast injection confirmed appropriate [...] questions arise, please contact us by calling [phone]. ?? Requested By: Dictated By: ?? STEPH DURÁN ??on Nov 05 2014 ??3:57P This document has been electronically signed by: IBAN DUARTE M.D. on Nov 05 2014 ??5:14P [id number] Procedure Note Provider, MD Tyler - 08/12/2016 IBAN DUARTE M.D. STEPH DURÁN FINAL REPORT The radiology attending physician has personally reviewed this study, and has reviewed and/or edited this written report and agrees with it. ACC# Date Time Exam [id number] Nov 05, 2014 14:57:00 85656 Inj Sin/Abs,S&I [id number] Nov 05, 2014 14:57:00 87851 Inj Abscess Cat [id number] Nov 05, 2014 14:57:00 18091 Abscess TubeChg [id number] Nov 05, 2014 14:57:00 67874 Venancio Cath Ch,S&I L [id number] Nov 05, 2014 14:57:00 16774 Sinus TR Inj TX ACC# Date Time Exam [id number] Nov 05, 2014 14:57:00 36516 Inj Sin/Abs,S&I [id number] Nov 05, 2014 14:57:00 94001 Inj Abscess Cat [id number] Nov 05, 2014 14:57:00 54834 Abscess TubeChg [id number] Nov 05, 2014 14:57:00 92453 Venancio Schaeffer Ch,S&I L [id number] Nov 05, 2014 14:57:00 99027 Sinus TR Inj TX EXAMINATION: DRAINAGE CATHETER EVALUATION AND EXCHANGE HISTORY: 59-year-old female with history of left radical mastectomy and large normal fluid collection under the left surgical site she had a 12 [place] loop placed the patient is gone from initially around 100 cc a day down to now between 40 and 50 per day. She does not flush the collection. ATTENDING PRESENCE: Dr. Duarte, the attending radiologist, was present from the beginning to the end of the procedure. SEDATION: The patient did not require conscious sedation for the procedure. TECHNIQUE: Prior to beginning the procedure, Purdys Protocol was used to confirm the patient's identity and planned procedure. Fluoroscopy time has been recorded in the electronic medical record. Maximum sterile barriers including cap, mask, hand hygiene, sterile gloves, sterile gown, large sterile drape and 2% chlorhexidine for cutaneous antisepsis were used. After obtaining a advance scout image the catheter was connected with dilute [...] a Melendez guidewire for a new 12 [place] loop catheter. Limited contrast injection confirmed appropriate [...] questions arise, please contact us by calling [phone]. Requested By: Dictated By: STEPH DURÁN on Nov 05 2014 3:57P This document has been electronically signed by: IBAN DUARTE M.D. on Nov 05 2014 5:14P [id number] us Historical Provider MD GARCIA IR PROCEDURES [...] agrees with it. ACC# ??Date Time ??Exam [id number] Nov 05, 2014 14:57:00 00099 Inj Sin/Abs,S&I [id number] Nov 05, 2014 14:57:00 31329 Inj Abscess Cat [id number] Nov 05, 2014 14:57:00 53247 Abscess TubeChg [id number] Nov 05, 2014 14:57:00 73606 Venancio Schaeffer Ch,S&I L [id number] Nov 05, 2014 14:57:00 24631 Sinus TR Inj TX ACC# ??Date Time ??Exam [id number] Nov 05, 2014 14:57:00 36681 Inj Sin/Abs,S&I [id number] Nov 05, 2014 14:57:00 97558 Inj Abscess Cat [id number] Nov 05, 2014 14:57:00 80098 Abscess TubeChg [id number] Nov 05, 2014 14:57:00 96587 Venancio Schaeffer Ch,S&I L [id number] Nov 05, 2014 14:57:00 57050 Sinus TR Inj TX EXAMINATION: ?DRAINAGE CATHETER EVALUATION AND ??EXCHANGE HISTORY: 59-year-old female with history of left radical mastectomy and large normal fluid collection under the left surgical site she had a 12 [place] loop placed the patient is gone from initially around 100 cc a day down to now between 40 and 50 per day. She does not flush the collection. ATTENDING PRESENCE: Dr. Duarte, the attending radiologist, was present from the beginning to the end of the procedure. SEDATION: The patient did not require conscious sedation for the procedure. TECHNIQUE: Prior to beginning the procedure, Purdys Protocol was used to confirm the patient's identity and planned procedure. Fluoroscopy time has been recorded in the electronic medical record. Maximum sterile barriers including cap, mask, hand hygiene, sterile gloves, sterile gown, large sterile drape and 2% chlorhexidine for cutaneous antisepsis were used. After obtaining a advance scout image the catheter was connected with dilute [...] a Melendez guidewire for a new 12 [place] loop catheter. ??Limited contrast injection confirmed appropriate [...] questions arise, please contact us by calling [phone]. ?? Requested By: Dictated By: ?? STEPH DURÁN ??on Nov 05 2014 ??3:57P This document has been electronically signed by: IBAN DUARTE M.D. on Nov 05 2014 ??5:14P [id number] Procedure Note Provider, MD Tyler - 08/12/2016 IBAN DUARTE M.D. STEPH DURÁN FINAL REPORT The radiology attending physician has personally reviewed this study, and has reviewed and/or edited this written report and agrees with it. ACC# Date Time Exam [id number] Nov 05, 2014 14:57:00 04085 Inj Sin/Abs,S&I [id number] Nov 05, 2014 14:57:00 54348 Inj Abscess Cat [id number] Nov 05, 2014 14:57:00 95065 Abscess TubeChg [id number] Nov 05, 2014 14:57:00 49953 Drn Cath Ch,S&I L [id number] Nov 05, 2014 14:57:00 25876 Sinus TR Inj TX ACC# Date Time Exam [id number] Nov 05, 2014 14:57:00 36678 Inj Sin/Abs,S&I [id number] Nov 05, 2014 14:57:00 79344 Inj Abscess Cat [id number] Nov 05, 2014 14:57:00 80340 Abscess TubeChg [id number] Nov 05, 2014 14:57:00 53120 Venancio Cath Ch,S&I L [id number] Nov 05, 2014 14:57:00 63207 Sinus TR Inj TX EXAMINATION: DRAINAGE CATHETER EVALUATION AND EXCHANGE HISTORY: 59-year-old female with history of left radical mastectomy and large normal fluid collection under the left surgical site she had a 12 [place] loop placed the patient is gone from initially around 100 cc a day down to now between 40 and 50 per day. She does not flush the collection. ATTENDING PRESENCE: Dr. Duarte, the attending radiologist, was present from the beginning to the end of the procedure. SEDATION: The patient did not require conscious sedation for the procedure. TECHNIQUE: Prior to beginning the procedure, Purdys Protocol was used to confirm the patient's identity and planned procedure. Fluoroscopy time has been recorded in the electronic medical record. Maximum sterile barriers including cap, mask, hand hygiene, sterile gloves, sterile gown, large sterile drape and 2% chlorhexidine for cutaneous antisepsis were used. After obtaining a advance scout image the catheter was connected with dilute [...] a Melendez guidewire for a new 12 [place] loop catheter. Limited contrast injection confirmed appropriate [...] questions arise, please contact us by calling [phone]. Requested By: Dictated By: STEPH DURÁN on Nov 05 2014 3:57P This document has been electronically signed by: IBAN DUARTE M.D. on Nov 05 2014 5:14P [id number] us Historical Provider MD GARCIA IR PROCEDURES [...] agrees with it. ACC# ??Date Time ??Exam [id number] Nov 05, 2014 14:57:00 29674 Inj Sin/Abs,S&I [id number] Nov 05, 2014 14:57:00 20020 Inj Abscess Cat [id number] Nov 05, 2014 14:57:00 19718 Abscess TubeChg [id number] Nov 05, 2014 14:57:00 61721 Venancio Cath Ch,S&I L [id number] Nov 05, 2014 14:57:00 47494 Sinus TR Inj TX ACC# ??Date Time ??Exam [id number] Nov 05, 2014 14:57:00 68878 Inj Sin/Abs,S&I [id number] Nov 05, 2014 14:57:00 02617 Inj Abscess Cat [id number] Nov 05, 2014 14:57:00 17429 Abscess TubeChg [id number] Nov 05, 2014 14:57:00 79446 Venancio Schaeffer Ch,S&I L [id number] Nov 05, 2014 14:57:00 79589 Sinus TR Inj TX EXAMINATION: ?DRAINAGE CATHETER EVALUATION AND ??EXCHANGE HISTORY: 59-year-old female with history of left radical mastectomy and large normal fluid collection under the left surgical site she had a 12 [place] loop placed the patient is gone from initially around 100 cc a day down to now between 40 and 50 per day. She does not flush the collection. ATTENDING PRESENCE: Dr. Duarte, the attending radiologist, was present from the beginning to the end of the procedure. SEDATION: The patient did not require conscious sedation for the procedure. TECHNIQUE: Prior to beginning the procedure, Purdys Protocol was used to confirm the patient's identity and planned procedure. Fluoroscopy time has been recorded in the electronic medical record. Maximum sterile barriers including cap, mask, hand hygiene, sterile gloves, sterile gown, large sterile drape and 2% chlorhexidine for cutaneous antisepsis were used. After obtaining a advance scout image the catheter was connected with dilute [...] a Melendez guidewire for a new 12 [place] loop catheter. ??Limited contrast injection confirmed appropriate [...] questions arise, please contact us by calling [phone]. ?? Requested By: Dictated By: ?? STEPH DURÁN ??on Nov 05 2014 ??3:57P This document has been electronically signed by: IBAN DUARTE M.D. on Nov 05 2014 ??5:14P [id number] Procedure Note Provider, MD Tyler - 08/12/2016 IBAN DUARTE M.D. STEPH DURÁN FINAL REPORT The radiology attending physician has personally reviewed this study, and has reviewed and/or edited this written report and agrees with it. ACC# Date Time Exam [id number] Nov 05, 2014 14:57:00 06131 Inj Sin/Abs,S&I [id number] Nov 05, 2014 14:57:00 43427 Inj Abscess Cat [id number] Nov 05, 2014 14:57:00 71238 Abscess TubeChg [id number] Nov 05, 2014 14:57:00 36287 Drn Cath Ch,S&I L [id number] Nov 05, 2014 14:57:00 21647 Sinus TR Inj TX ACC# Date Time Exam [id number] Nov 05, 2014 14:57:00 13253 Inj Sin/Abs,S&I [id number] Nov 05, 2014 14:57:00 69851 Inj Abscess Cat [id number] Nov 05, 2014 14:57:00 48033 Abscess TubeChg [id number] Nov 05, 2014 14:57:00 95752 Venancio Cath Ch,S&I L [id number] Nov 05, 2014 14:57:00 62510 Sinus TR Inj TX EXAMINATION: DRAINAGE CATHETER EVALUATION AND EXCHANGE HISTORY: 59-year-old female with history of left radical mastectomy and large normal fluid collection under the left surgical site she had a 12 [place] loop placed the patient is gone from initially around 100 cc a day down to now between 40 and 50 per day. She does not flush the collection. ATTENDING PRESENCE: Dr. Duarte, the attending radiologist, was present from the beginning to the end of the procedure. SEDATION: The patient did not require conscious sedation for the procedure. TECHNIQUE: Prior to beginning the procedure, Purdys Protocol was used to confirm the patient's identity and planned procedure. Fluoroscopy time has been recorded in the electronic medical record. Maximum sterile barriers including cap, mask, hand hygiene, sterile gloves, sterile gown, large sterile drape and 2% chlorhexidine for cutaneous antisepsis were used. After obtaining a advance scout image the catheter was connected with dilute [...] a Melendez guidewire for a new 12 [place] loop catheter. Limited contrast injection confirmed appropriate [...] questions arise, please contact us by calling [phone]. Requested By: Dictated By: STEPH DURÁN on Nov 05 2014 3:57P This document has been electronically signed by: IBAN DUARTE M.D. on Nov 05 2014 5:14P [id number] us Historical Provider MD GARCIA IR PROCEDURES Final R esult documented in this encounter Visit Diagnoses Diagnosis Encounter for fitting and adjustment of non-vascular catheter NEC documented in this encounter Care Teams Painter Ordnance Relationship Specialty Start Date End Date Antoinette Zhu MD [address] [address] PCP - General 08/01/13 07/26/16 documented as of this encounter
--- OUTSIDE RECORDS SUMMARY | 2024-04-26 09:37 | XMS_ITS | Encounter Summary ---
Author Organization [facility] Healthcare Address [address] [place] [address] Care Team Providers Care Wind Instrument Repairer Name Role Phone Antoinette Zhu MD Primary Care Provider [phone] Encounter Details Date Type Department Care Team (Late st Contact Info) Description 11/10/2013 10:36 PM CDT - 11/11/2013 3:18 AM CDT [place] [address] [id number] Urinary tract infection; Essential hypertension Social History Tobacco Use Types Packs/Day Years Used Date Smoking Tobacco: Former Alcohol Use Standard Drinks/Week Comments No 0 (1 standard drink = 0.6 oz pur e alcohol) Comments Unknown Sex and Gender Information Value Date Recorded Sex Assigned at Not on file Legal Sex Female 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 DIAGNOSIS: ??WEAKNESS, HEART PALPATING CLINICAL HISTORY: ?? [id number] RESULT: \ PORTABLE AP SUPINE CHEST, ONE VIEW FINDINGS: ??An AP portable supine view of the chest shows the heart, lungs, pulmonary vascularity, mediastinum and bony thorax to be within normal limits. ??There is no evidence of pleural fluid. IMPRESSION: NORMAL AP PORTABLE SUPINE CHEST. DEBURRING TECHNICIAN: ??PW2 TRANSCRIBE DATE/TIME: ??Nov 12 2013 ??2:46P RADIOLOGIST: ??SILVIA RUBIO M.D. ??READ ON: ??Nov 11 2013 ??8:30A ORDERING DR: ENMANUEL BENEDICT M.D. THIS DOCUMENT HAS BEEN ELECTRONICALLY SIGNED BY: ??SILVIA RUBIO M.D. ??ON: ??Nov 12 2013 ??4:12P Requesting Fax: ??[phone] Procedure Note Provider, yTler, - 08/12/2016 DATE OF EXAM: Nov 11 2013 12:54AM Acc#: [id number] EDX [id number] - XR Chest Portable DIAGNOSIS: WEAKNESS, HEART PALPATING CLINICAL HISTORY: [id number] RESULT: \ PORTABLE AP SUPINE CHEST, ONE VIEW FINDINGS: An AP portable supine view of the chest shows the heart, lungs, pulmonary vascularity, mediastinum and bony thorax to be within normal limits. There is no evidence of pleural fluid. IMPRESSION: NORMAL AP PORTABLE SUPINE CHEST. DEBURRING TECHNICIAN: PW2 TRANSCRIBE DATE/TIME: Nov 12 2013 2:46P [...] BLOOD ORDERABLES Final Result Performing Organization Address [facility] de Phone Number HISTORICAL RESULTS * (ABNORMAL) Blood B-type natriuretic peptide (BNP) (11/11/2013 12:35 AM CDT) [facility] BNP 165(H) 0 - 100 pg/ml HISTORICAL RESULTS Blood specimen (specimen) 11/11/2013 12:35 AM CDT us Enmanuel Benedict MD LAB BLOOD ORDERABLES Final Result Performing Organization Address [facility] de Phone Number HISTORICAL RESULTS * Plasma troponin I (11/11/2013 12:35 AM CDT) [facility] Troponin I <0.03 0.00 - 0.14 ng/ml HISTORICAL RESULTS Comment: Troponin Reference Ranges: Normal: ?0.00 - 0.14 ng/mL Indeterminate: ?0.15 - 0.50 ng/mL MD / Cardiac Muscle Damage: ?>0.50 ng/mL Plasma 11/11/2013 12:3 5 AM CDT us Enmanuel Benedict MD LAB BLOOD ORDERABLES Final Result Performing Organization Address [facility] de Phone Number HISTORICAL RESULTS * (ABNORMAL) Plasma comprehensive metabolic panel (11/11/2013 12:35 AM CDT) [facility] BUN 14 8 - 24 mg/dl [...] HISTORICAL RESULTS Comment: If this individual is -[place], multiply result by 1.21 Repeated results of [...] HISTORICAL RESULTS - 11/13/2013 9:51 AM CDT [facility] ?Patient Name: ?MOHSEN SALAZAR ?Med. Rec#: ?? [id number] ?Pt. Acct.#: ??[id number] ?Birthdate: ?? 1955 ?Age / Sex: ?? [...] hypertension documented in this encounter Care Teams Wind Instrument Repairer Relationship Specialty Start Date End Date Antoinette Zhu MD [address] [address] PCP - General 08/01/13 07/26/16 documented as of this encounter
--- OUTSIDE RECORDS SUMMARY | 2024-04-26 09:38 | XMS_ITS | Encounter Summary ---
Author Organization [facility] Facility Care Team Providers Care Security Support Analyst Name Role Phone Unavailable Primary Care Provider Unavailabl e Encounter Details Date Type Department Care Team (Late st Contact Info) Description 01/08/2009 - 01/08/2009 11:59 PM CDT Hospital Encounter [facility] Antoinette Ryan MD [address] [address] Other malaise and fatigue Social History Tobacco Use Types Packs/Day Years Used Date Smoking Tobacco: Never Assessed Comments Unknown Sex and Gender Information Value Date Recorded Sex Assigned at Not on file Legal Sex Female 12:24 AM MATERIAL DAMAGE APPRAISER Gender Identity Not on file Sexual Orientation Not on file documented as of this encounter Plan of Treatment Not on file documented as of this encounter Visit Diagnoses Diagnosis Other malaise and fatigue documented in this encounter
--- OUTSIDE RECORDS SUMMARY | 2024-04-26 09:38 | XMS_ITS | Encounter Summary ---
Author Organization [facility] Healthcare Address [address] [place] [address] Care Team Providers Care Measuring Machine Operator Name Role Phone Antoinette Zhu MD Primary Care Provider [phone] Encounter Details Date Type Department Care Team (Late st Contact Info) Description 08/01/2013 3:00 PM CDT - 08/01/2013 11:59 PM CDT Hospital [place] [address] [facility] [address] [place] [address] Nontoxic multinodular goiter; Toxic multinodular goiter; Dysmetabolic syndrome X Social History Tobacco Use Types Packs/Day Years Used Date Smoking Tobacco: Former Alcohol Use Standard Drinks/Week Comments No 0 (1 standard drink = 0.6 oz pur e alcohol) Comments Unknown Sex and Gender Information Value Date Recorded Sex Assigned at Not on file Legal Sex Female 12:24 AM ADVANCED CLINICAL SPECIALIST Gender Identity Not on file Sexual [...] X documented in this encounter Care Teams Measuring Machine Operator Relationship Specialty Start Date End Date Antoinette Zhu MD [address] [address] PCP - General 08/01/13 07/26/16 documented as of this encounter
--- OUTSIDE RECORDS SUMMARY | 2024-04-26 09:38 | XMS_ITS | Encounter Summary ---
Author Organization [facility] Facility Care Team Providers Care Dealmaker Name Role Phone Unavailable Primary Care Provider Unavailabl e Encounter Details Date Type Department Care Team (Late st Contact Info) Description 06/01/2007 10:51 AM RECEIVER STOCKER - 06/01/2007 4:03 PM RECEIVER STOCKER Hospital Encounter [facility] Justen Lamar MD [address] [place] [address] Headache; Cardiomegaly; Other acute sinusitis Social History Tobacco Use Types Packs/Day Years Used Date Smoking Tobacco: Never Assessed Comments Unknown Sex and Gender Information Value Date Recorded Sex Assigned at Not on file Legal Sex Female 12:24 AM RECEIVER STOCKER Gender Identity Not on file Sexual Orientation Not on file documented as of this encounter Plan of Treatment Not on file documented as of this encounter Visit Diagnoses Diagnosis Headache Cardiomegaly Other acute sinusitis documented in this encounter
--- OUTSIDE RECORDS SUMMARY | 2024-04-26 09:38 | XMS_ITS | Encounter Summary ---
Author Organization [facility] Facility Care Team Providers Care Oil Dispatcher Name Role Phone Antoinette Zhu MD Primary Care Provider [phone] Encounter Details Date Type Department Care Team (Latest Contact Info) Description 03/12/2013 10:01 AM BRIDGE REPAIR CREW PERSON - 03/12/2013 11:59 PM [facility] Hospital Encounter [facility] Sheba Gonzales MD [address] [facility] [address] [place] [address] Pain in soft tissues of limb; Restless legs syndrome Social History Tobacco Use Types Packs/Day Years Used Date Smoking Tobacco: Never Assessed Comments Unknown Sex and Gender Information Value Date Recorded Sex Assigned at Not on file Legal Sex Female 12:24 AM BRIDGE REPAIR CREW PERSON Gender Identity Not on file Sexual [...] OL (VITAMIN D) Routine 03/12/2013 10:18 AM BRIDGE REPAIR CREW PERSON PLASMA THYROID-STIMULATING HORMONE (TSH) Routine 03/12/2013 10:18 AM BRIDGE REPAIR CREW PERSON PLASMA IRON PROFILE Routine 03/12/2013 1 0:18 AM BRIDGE REPAIR CREW PERSON PLASMA CYANOCOBALAMIN (VITAMIN B12), FOLIC ACID Routine 03/12/2013 10:18 AM BRIDGE REPAIR CREW PERSON BLOOD HEMOGLOBIN A1C Routine 03/12/2013 10:18 AM BRIDGE REPAIR CREW PERSON DISCHARGE LABORATORY CUMULATIVE REPORT 03/12/2013 documented in this encounter Results * (ABNORMAL) Blood hemoglobin A1C (03/12/2013 10:18 AM BRIDGE REPAIR CREW PERSON) Glycated hemoglobin 6.2(H) 4.0 - 6.0 % HISTORICAL RESULTS Blood specimen (specimen) 03/12/2013 10:18 AM BRIDGE REPAIR CREW PERSON us Sheba Gonzales MD LAB BLOOD ORDERABLES Final Re sult HISTORICAL RESULTS * Serum 25-hydroxycholecalciferol (vitamin D) (03/12/2013 10:18 AM BRIDGE REPAIR CREW PERSON) 25-OH Vit D 39 30 - 100 ng/ml HISTORICAL RESULTS Serum 03/12/2013 10:1 8 AM BRIDGE REPAIR CREW PERSON Sheba Gonzales MD LAB BLOOD ORDERABLES Final Re sult Performing Organization Address City/[facility] Co de Phone Number HISTORICAL RESULTS * Plasma cyanocobalamin (vitamin B12), folic acid (03/12/2013 10:18 AM BRIDGE REPAIR CREW PERSON) Folic acid 9.3 5.9 - 99.0 mcg/L HISTORICAL RESULTS Comment:The World Health Org anization (WHO) Technical Consulation on folate has determined that folate concentrations less than 4 ng/mL are considered deficient. Cyanocobalamin (Vit B12) 345 180 - 999 pg/ml HISTORICAL RESULTS Plasma 03/12/2013 10:1 8 AM BRIDGE REPAIR CREW PERSON Sheba Gonzales MD LAB BLOOD ORDERABLES Final Re sult Performing Organization Address [facility] Co de Phone Number HISTORICAL RESULTS * (ABNORMAL) Plasma iron profile (03/12/2013 10:18 AM BRIDGE REPAIR CREW PERSON) Iron 45 28 - 170 mcg/dl HISTORICAL RESULTS TIBC 381 250 - 450 mcg/dl HISTORICAL RESULTS Transferrin 272 250 - 380 mg/dl HISTORICAL RESULTS Iron saturation 12(L) 20 - 55 % HIST ORICAL RESULTS Plasma 03/12/2013 10:1 8 AM BRIDGE REPAIR CREW PERSON Sheba Gonzales MD LAB BLOOD ORDERABLES Final Re sult Performing Organization Address City/[facility] Co de Phone Number HISTORICAL RESULTS * Plasma thyroid-stimulating hormone (TSH) (03/12/2013 10:18 AM BRIDGE REPAIR CREW PERSON) TSH 1.61 0.34 - 5.60 mcIUnits/m l HISTORICAL RESULTS Comment: TSH Interpretive Guide: [place]: ??TSH surges within the first 15 to 60 minutes of life reaching peak levels at about 30 minutes. ??Values then decline rapidly and after 1 week are within the Adult Normal Range . Adult: Hyperthyroid ?< ?? 0.1 ?mcIUnits/mL Euthyroid ?0.34 ??- ??5.60 ? mcIUnits/mL Hypothyroid ? > 12.0 ? mcIUnits/mL Plasma 03/12/2013 10:1 8 AM BRIDGE REPAIR CREW PERSON us Sheba Gonzales MD LAB BLOOD ORDERABLES Final Re sult HISTORICAL RESULTS * DISCHARGE LABORATORY CUMULATIVE REPORT (03/12/2013) Narrative 03/12/2013 Ordered by an unspecified provider. Historical Provider LAB BLOOD ORDERABLES Deann l Result documented in this encounter Visit Diagnoses Diagnosis Pain in soft tissues of limb Restless legs syndrome Restless legs syndrome (RLS) documented in this encounter Care Teams Oil Dispatcher Relationship Specialty Start Date End Date Antoinette Zhu MD [email or web address] [address] PCP - General 03/12/13 07/31/13 documented as of this encounter
--- OUTSIDE RECORDS SUMMARY | 2024-04-26 09:38 | XMS_ITS | Encounter Summary ---
Author Organization [facility] Healthcare Address [address] [place] [address] Care Team Providers Care Sharebroker Name Role Phone Antoinette Zhu MD Primary Care Provider [phone] Encounter Details Date Type Department Care Team (Latest Contact Info) Description 07/08/2013 2:12 PM CDT - 07/12/2013 1:37 PM CDT [place] [address] [address] Other nonspecific abnormal cardiovascular system function study; Intermediate coronary syndrome (CMS/HCC) (HCC); Family history of other cardiovascular diseases Social History Tobacco Use Types Packs/Day Years Used Date Smoking Tobacco: Never Assessed Comments Unknown Sex and Gender Information Value Date Recorded Sex Assigned at Not on file 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 Admit Date: 07/08/2013 [...] findings suggestive of stress-induced ischemia of the uiq-yc-esargl anterior wall, left ventricular ejection fraction of [...] was also found to be 6.7; hence, paraeducator consult was requested during hospital stay, and the patient will be discharged with consistent-carbohydrate/ cardiac diet. The patient was also found to have microscopic hematuria and states that she occasionally has seen blood in her urine. We will recommend urology and LEAN MANUFACTURING ENGINEER followup as an outpatient. This is a [...] within 1 week. 5. Follow up with LEAN MANUFACTURING ENGINEER, Dr. Tavares, within 1 week. Time Spent: [...] HISTORY AND PHYSICAL Patient: MOHSEN MARQUES Account: [id number] Room No: 724-02 : 1955 Patient Type: [facility] Attend.: Elo Lackey M.D. Admit Date: 07/08/2013 Dict.: Elo Lackey M.D. Disch. Date: CHIEF COMPLAINT: Shortness of breath. HISTORY OF PRESENT ILLNESS: Patient is a pleasant 58-year-old female with past medical history significant for hypertension, restless leg syndrome, recent pulmonary embolism about 2 months ago at [place], [place], sleep apnea on CPAP who states that she was admitted at [facility] 2 months ago with a pulmonary embolism, [...] pulmonary embolism diagnosed 2 months ago at [facility], [place], [place], on Xarelto. 3. Sleep apnea, on [...] illicit drug use. 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 8. Microscopic hematuria. Patient will need followup with Urology and LEAN MANUFACTURING ENGINEER as an outpatient for further workup. 9. [...] CDT CONSULTATION REPORT Patient: MOHSEN MARQUES Account: [id number] Room No: 724-02 : 1955 Patient Type: [facility] Attend.: Elo Lackey M.D. Admit Date: 07/08/2013 [...] PE about two months ago treated at [facility]. Also hypertension, sleep apnea on CPAP, restless [...] 2+ and symmetrical. There is no tremor. BRUSHER: The patient is awake, alert, oriented times [...] CDT CONSULTATION REPORT Patient: MOHSEN MARQUES Account: [id number] Room No: 724-02 : 1955 Patient Type: SDS Attend.: Elo Lackey M.D. Admit Date: 07/08/2013 Consult.: Zoey Jacobo M.D. Disch. Date: CARDIOLOGY CONSULTATION PRIMARY CARE PHYSICIAN: Dr. Abiola Zhu in [place], [place] The patient is a very pleasant 58-year-old white female who I was asked to see at the request of Dr. Lackey for my advice and opinion regarding her abnormal stress test in consultation. The patient has no history of any heart disease. She does have hypertension and a recent PE two months ago treated at [facility] in [place]. She is on Xarelto. She started having [...] PE in the right lower lobe at [facility] around May 07 and sleep apnea. She has had knee replacement and obesity, cholecystectomy and right oophorectomy. SOCIAL HISTORY: The patient smoked a bit when she was teenager. No drug use or alcohol. She is with three grown children. 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 FAMILY HISTORY: Two sisters had breast cancer. [...] troponins are all negative so this may nocturnist physician to be a false positive, but we [...] 07/10/2013 13:30 CC: Dr. Abiola Zhu [place], [place] Authenticated and Edited by Zoey Jacobo MD [...] HISTORICAL RESULTS Comment: If this individual is -Indonesian, multiply result by 1.21 Repeated results of [...] OF EXAM: ??Jul 11 2013 11:11AM Acc#: ??[id number] ??EUS 0034 - US Thyroid ?? DIAGNOSIS: [...] AND NODULES ARE PRESENT COMPATIBLE WITH GOITER. JUDICIAL ADMINISTRATIVE ASSISTANT: ??ORLANDO TRANSCRIBE DATE/TIME: ??Jul 11 2013 11:58A RADIOLOGIST: ??JOHN CARRINGTON M.D. ??READ ON: ??Jul 11 2013 11:16A ORDERING DR: EUGENIO NAILS M.D. THIS DOCUMENT HAS BEEN ELECTRONICALLY SIGNED BY: ??JOHN CARRINGTON M.D. ??ON: ??Jul 11 2013 12:27P Requesting Fax: ??[phone] Procedure Note Provider, Tyler, - 08/12/2016 DATE OF EXAM: Jul 11 2013 11:11AM Acc#: [id number] EUS 0034 - US Thyroid DIAGNOSIS: SHORTNESS [...] AND NODULES ARE PRESENT COMPATIBLE WITH GOITER. JUDICIAL ADMINISTRATIVE ASSISTANT: ORLANDO TRANSCRIBE DATE/TIME: Jul 11 2013 11:58A [...] 07/11/2013 Narrative 07/12/2013 6:51 AM CDT ?CARDIAC MERINGUER Patient: ??MOHSEN MARQUES ? : ? 1955 Account: ??[id number] ? Age: ? 58 Film No: ? [...] SITE: ??Right femoral artery. MEDICATIONS GIVEN IN MERINGUER: ?? Versed 4 mg intravenous and fentanyl 100 mcg intravenous push in divided doses. ??In addition, the patient developed SVT at the completion of the procedure, was given Lopressor 5 mg intravenous push times one. TECHNICAL SUMMARY: ??After informed consent, the patient was brought to the general production laborer and the right femoral area was prepped [...] factor reduction. Dictated by Zoey Jacobo M.D. [facility]/ia Job #: ??[id number] DD: ??07/11/2013 19:57 TD: ??07/12/2013 06:51 CC: Dr. Antoinette Zhu ? ROSALINA Lema Authenticated by Zoey Jacobo MD On 07/12/2013 03:05:02 PM Procedure Note Provider, MD Tyler - 08/23/2016 CARDIAC MERINGUER Patient: MOHSEN MARQUES : 1955 Account: [id number] Age: 58 Film No: Room No: 724-02 [...] SITE: Right femoral artery. MEDICATIONS GIVEN IN MERINGUER: Versed 4 mg intravenous and fentanyl 100mcg intravenous push in divided doses. In addition, the patient developed SVTat the completion of the procedure, was given Lopressor 5 mg intravenouspush times one. TECHNICAL SUMMARY: After informed consent, the patient was brought to [facility] lab and the right femoral area was [...] factor reduction. Dictated by Zoey Jacobo M.D. [facility]/ia TD: 07/12/2013 06:51 CC: Dr. Antoinette Lema, [place] Authenticated by Zoey Jacobo MD On 07/12/2013 03:05:02 PM Historical Provider MD FOSTER CARDIAC CATH PROCEDURE S Final Result * Cardiac Catheterization (07/11/2013 12:00 AM CDT) Anatomical Region Laterality Modality X-Ray Angiograph y 07/11/2013 Narrative 07/12/2013 6:51 AM CDT ?CARDIAC MERINGUER Patient: ??MOHSEN MARQUES ? : ? 1955 Account: ??[id number] ? Age: ? 58 Film No: ? [...] SITE: ??Right femoral artery. MEDICATIONS GIVEN IN MERINGUER: ?? Versed 4 mg intravenous and fentanyl 100 mcg intravenous push in divided doses. ??In addition, the patient developed SVT at the completion of the procedure, was given Lopressor 5 mg intravenous push times one. TECHNICAL SUMMARY: ??After informed consent, the patient was brought to the general production laborer and the right femoral area was prepped [...] factor reduction. Dictated by Zoey Jacobo M.D. [facility]/ia Job #: ??[id number] DD: ??07/11/2013 19:57 TD: ??07/12/2013 06:51 CC: Dr. Antoinette Zhu ? ROSALINA Lema Procedure Note Provider, MD Tyler - 08/23/2016 CARDIAC MERINGUER Patient: MOHSEN MARQUES : 1955 Account: [id number] Age: 58 Film No: Room No: 72- [...] SITE: Right femoral artery. MEDICATIONS GIVEN IN MERINGUER: Versed 4 mg intravenous and fentanyl 100mcg intravenous push in divided doses. In addition, the patient developed SVTat the completion of the procedure, was given Lopressor 5 mg intravenouspush times one. TECHNICAL SUMMARY: After informed consent, [facility] and the right femoral area was [...] TD: 07/12/2013 06:51 CC: Dr. Antoinette Lema, [place] Historical Provider CV CARDIAC CATH PROCEDURE S Final Result * (ABNORMAL) Plasma thyroid-stimulating hormone (TSH) (07/10/2013 7:00 PM CDT) TSH 0.09(L) 0.34 - 5.60 mcIUnits/ml HISTORICAL RESULTS Plasma 07/10/2013 7:00 PM CDT Result [facility] Eugenio Nails MD LAB BLOOD ORDERABLES Final Resul t Performing Organization Address [facility] de Phone Number HISTORICAL RESULTS * Plasma triiodothyronine (T3) (07/10/2013 7:00 PM CDT) T3 151.0 87.0 - 178.0 ng/dl HISTORICAL RESULTS Plasma 07/10/2013 7:00 PM CDT Result [facility] Eugenio Nails MD LAB BLOOD ORDERABLES Final Resul t Performing Organization Address City/[facility] Co de Phone Number HISTORICAL RESULTS * Plasma troponin I (07/10/2013 5:44 AM CDT) [facility] Troponin I <0.03 0.00 - 0.14 ng/ml HISTORICAL RESULTS Comment: Troponin Reference Ranges: Normal: ?0.00 - 0.14 ng/mL Indeterminate: ?0.15 - 0.50 ng/mL NV / Cardiac Muscle Damage: ?>0.50 ng/mL Plasma 07/10/2013 5:44 AM CDT Result [facility] lEo Lackey MD LAB BLOOD ORDERABLE S Final Result Performing Organization Address [facility] de Phone Number HISTORICAL RESULTS * Plasma lipid panel (07/10/2013 5:44 AM CDT) [facility] Cholesterol 162 100 - 200 mg/dl HISTORICAL RESULTS Triglycerides 124 10 - 150 mg/dl HISTORICAL RESULTS HDL 40 40 - 59 mg/dl HISTORICAL RESULTS LDL 97 60 - 129 mg/dl HISTORICAL RESULTS Plasma 07/10/2013 5:44 AM CDT Result [facility] Elo Lackey MD LAB BLOOD ORDERABLE S Final Result Performing Organization Address [facility] de Phone Number HISTORICAL RESULTS * Plasma thyroxine (T4), free (07/10/2013 5:44 AM CDT) [facility] Free T4 0.89 0.61 - 1.12 ng/dl HISTORICAL RESULTS Plasma 07/10/2013 5:44 AM CDT Elo Lackey MD LAB BLOOD ORDERABLE S Final Result Performing Organization Address [facility] de Phone Number HISTORICAL RESULTS * (ABNORMAL) Plasma thyroid-stimulating hormone (TSH) (07/10/2013 5:44 AM CDT) TSH 0.05(L) 0.34 - 5.60 mcIUnits/ml HISTORICAL RESULTS Plasma 07/10/2013 5:44 AM CDT Result [facility] Elo Lackey MD LAB BLOOD ORDERABLE S Final Result Performing Organization Address [facility] de Phone Number HISTORICAL RESULTS * (ABNORMAL) Blood hemoglobin A1C (07/10/2013 12:44 AM CDT) Hgb A1C 6.7(H) 4.0 - 6.0 % HISTORICAL RESULTS Comment: Hemoglobin A1c ADA Interpretive Guidelines: ?<7% ?? Glycemia controlled ?>8% ?? Hyperglycemia, additional action recommended ?Lizandro Immunochemical Method Blood specimen (specimen) 07/10/2013 12:44 AM CDT Narrative HISTORICAL RESULTS - 07/10/2013 4:08 PM CDT Test performed at [facility], [address] [place] [address], [facility] [place]. Elo Lackey MD LAB BLOOD ORDERABLE S Final Result Performing Organization Address [facility] de Phone Number HISTORICAL RESULTS * Transthoracic Echo Complete W Doppler/CF WO Contrast (07/10/2013 12:00 AM CDT) Anatomical Region Laterality Modality Ultrasound Narrative 07/10/2013 12:00 AM CDT Ordered by an unspecified provider. Procedure Note Provider, Tyler, - 06/20/2018 Ordered by an unspecified provider. Result [facility] Historical Provider CV ECHO PROCEDURES Final Result * PULMONARY FUNCTION TEST (07/10/2013) Anatomical Region Laterality Modality PFT Narrative 07/10/2013 Ordered by an unspecified provider. Historical Provider MD PFT ORDERABLES Final Res ult * Pulmonary function test (07/10/2013 12:00 AM CDT) Anatomical Region Laterality Modality PFT 07/10/2013 Narrative 07/11/2013 8:38 PM CDT ? PULMONARY FUNCTION REPORT - NE Patient: ??MOHSEN MARQUES Account: ??[id number] ? Room No: ? 724- 02 : [...] flow. Dictated by: Avery Davila/sarkis Job #: ??[id number] DD: ??07/11/2013 13:50 TD: ??07/11/2013 14:04 Authenticated by Genaro Law MD On 07/11/2013 07:36:51 PM us Historical Provider PFT ORDERABLES Final Res ult * NM MPI Spect (Rest And Stress) Multiple Studies (07/09/2013 11:26 AM CDT) Anatomical Region Laterality Modality Body N/A Nuclear Medicine 07/09/2013 11:2 6 AM CDT Narrative 07/09/2013 2:37 PM CDT DATE OF EXAM: ??Jul 09 2013 11:26AM Acc#: ??[id number] ??ENM 0067 - NM Myocard Perf Rest/Stress [...] BOCANEGRA AT 11:55 A.M. ON 07/09/2013. ? JUDICIAL ADMINISTRATIVE ASSISTANT: ??MJ4 TRANSCRIBE DATE/TIME: ??Jul 09 2013 ??1:25P RADIOLOGIST: ??GLADYS BOCANEGRA M.D. ??READ ON: ??Jul 09 2013 11:55A ORDERING DR: LOREN BONNER M.D. THIS DOCUMENT HAS BEEN ELECTRONICALLY SIGNED BY: ??DALJIT Varela, GLADYS ??ON: ??Jul 09 2013 ??2:37P Procedure Note Provider, MD Tyler - 08/12/2016 DATE OF EXAM: Jul 09 2013 11:26AM Acc#: [id number] ENM 0067 - NM Myocard Perf Rest/Stress [...] DR. BOCANEGRA AT 11:55 A.M. ON 07/09/2013. JUDICIAL ADMINISTRATIVE ASSISTANT: MJ4 TRANSCRIBE DATE/TIME: Jul 09 2013 1:25P [...] IMAGING PRELIMINARY RESULT PATIENT: MOHSEN MARQUES MR#: [id number] : [id number] SEX: ??F Procedure: ENTTH1 NM Myocard Perf Rest/Stress ?? Exam Date: Acc#: [id number] Pt_Class: I ? Priority: ??RTN Reason: R/O [...] IMAGING PRELIMINARY RESULT PATIENT: MOHSEN MARQUES MR#: [id number] : [id number] SEX: F Procedure: ENTTH1 NM Myocard Perf Rest/Stress Exam Date: Acc#: [id number] Pt_Class: I Priority: RTN Reason: R/O CAD [...] OF EXAM: ??Jul 09 2013 11:14AM Acc#: ??[id number] ??CHV 0013 - VL/US Venous Low Ext [...] LOWER EXTREMITY DUPLEX VENOUS DOPPLER EXAM. ?? JUDICIAL ADMINISTRATIVE ASSISTANT: ??PW2 TRANSCRIBE DATE/TIME: ??Jul 09 2013 12:59P RADIOLOGIST: ??SILVIA SEGOVIA M.D. ??READ ON: ??Jul 09 2013 11:27A ORDERING DR: ELO LACKEY M.D. THIS DOCUMENT HAS BEEN ELECTRONICALLY SIGNED BY: ??SILVIA SEGOVIA M.D. ??ON: ??Jul 09 2013 ??3:54P Procedure Note Provider, Tyler, - 08/12/2016 DATE OF EXAM: Jul 09 2013 11:14AM Acc#: [id number] CHV 0013 - VL/US Venous Low Ext [...] BILATERAL LOWER EXTREMITY DUPLEX VENOUS DOPPLER EXAM. JUDICIAL ADMINISTRATIVE ASSISTANT: GUS TRANSCRIBE DATE/TIME: Jul 09 2013 12:59P [...] ORDERABLES Final Resu Performing Organization Address [facility] de Phone Number HISTORICAL RESULTS * Plasma troponin I (07/09/2013 12:34 AM CDT) Pathologist [facility] Troponin I <0.03 0.00 - 0.14 ng/ml HISTORICAL RESULTS Comment: Troponin Reference Ranges: Normal: ?0.00 - 0.14 ng/mL Indeterminate: ?0.15 - 0.50 ng/mL NV / Cardiac Muscle Damage: ?>0.50 ng/mL Plasma 07/09/2013 12:3 4 AM CDT Loren Bonner MD LAB BLOOD ORDERABLES Final Resu Performing Organization Address [facility] de Phone Number HISTORICAL RESULTS * (ABNORMAL) Plasma comprehensive metabolic panel (07/09/2013 12:34 AM CDT) Pathologist [facility] BUN 11 8 - 24 mg/dl HISTORICAL [...] CDT ?CARDIOLOGY GRAPHICS Patient: ??MOHSEN MARQUES Account: ??[id number] ? : ? 1955 Room No: ??724-02 [...] by: Avery Britt F.A.C.C.S.C.A.I. RKG/af Job #: ??[id number] DD: ??07/09/2013 10:11 TD: ??07/09/2013 11:49 Procedure Note Provider, MD Tyler - 08/23/2016 CARDIOLOGY GRAPHICS Patient: MOHSEN MARQUES Account: [id number] : 1955 Room No: [facility] Age: 58 Attend.: Elo Lackey [...] B ag (07/08/2013 8:10 PM CDT) Pathologist [facility] Influ A ag, nasopharyngeal Negative Negative HISTORICAL RESULTS Comment:This test has an est imated 70% sensitivity and 90% specificity. Influ B ag, nasopharyngeal Negative Negative HISTORICAL RESULTS Comment:This test has an est imated 70% sensitivity and 90% specificity. Nasopharynx swab 07/08/2013 8:10 PM CDT Result [facility] Enmanuel Dubon MD LAB BLOOD ORDERABLES Final Result Performing Organization Address [facility] de Phone Number HISTORICAL RESULTS * Plasma troponin I (07/08/2013 8:01 PM CDT) Troponin I <0.03 0.00 - 0.14 ng/ml HISTORICAL RESULTS Comment: Troponin Reference Ranges: Normal: ?0.00 - 0.14 ng/mL Indeterminate: ?0.15 - 0.50 ng/mL NV / Cardiac Muscle Damage: ?>0.50 ng/mL Plasma 07/08/2013 8:01 PM CDT Loren Bonner MD LAB BLOOD ORDERABLES Final Resu lt HISTORICAL RESULTS * CT Chest W Contrast (07/08/2013 7:41 PM CDT) Anatomical Region Laterality Modality Body N/A Computed Tomogra phy 07/08/2013 7:41 PM CDT Narrative 07/08/2013 11:51 PM CDT DATE OF EXAM: ??Jul 08 2013 ??7:41PM Acc#: ??[id number] ??ECT 0123 - CT Chest PE W [...] NO INFILTRATE. NO PULMONARY ARTERIAL THROMBOEMBOLIC DISEASE. JUDICIAL ADMINISTRATIVE ASSISTANT: ??LB3 TRANSCRIBE DATE/TIME: ??Jul 08 2013 10:03P RADIOLOGIST: ??ROMIE CORBIN M.D. ??READ ON: ??Jul 08 2013 ??7:46P ORDERING DR: LOREN BONNER M.D. THIS DOCUMENT HAS BEEN ELECTRONICALLY SIGNED BY: ??ROMIE CORBIN M.D. ??ON: ??Jul 08 2013 11:51P Procedure Note Provider, MD Tyler - 08/12/2016 DATE OF EXAM: Jul 08 2013 7:41PM Acc#: [id number] ECT 0123 - CT Chest PE W [...] NO INFILTRATE. NO PULMONARY ARTERIAL THROMBOEMBOLIC DISEASE. JUDICIAL ADMINISTRATIVE ASSISTANT: LB3 TRANSCRIBE DATE/TIME: Jul 08 2013 10:03P [...] IMAGING PRELIMINARY RESULT PATIENT: MOHSEN MARQUES MR#: [id number] : [id number] SEX: ??F Procedure: ECTT4 CT Chest PE W ?? Exam Date: Acc#: [id number] Pt_Class: E ? Priority: ??STAT Reason: Possible [...] IMAGING PRELIMINARY RESULT PATIENT: MOHSEN MARQUES MR#: [id number] : [id number] SEX: F Procedure: ECTT4 CT Chest PE W Exam Date: Acc#: [id number] Pt_Class: E Priority: STAT Reason: Possible P [...] OF EXAM: ??Jul 08 2013 ??4:28PM Acc#: ??[id number] ??EDX 0031 - XR Chest Portable ?? [...] DISEASE. 2. THE PATIENT IS QUITE OBESE. JUDICIAL ADMINISTRATIVE ASSISTANT: ??LB3 TRANSCRIBE DATE/TIME: ??Jul 08 2013 ??6:35P RADIOLOGIST: ??SILVIA SEGOVIA M.D. ??READ ON: ??Jul 08 2013 ??4:31P ORDERING DR: LOREN BONNER M.D. THIS DOCUMENT HAS BEEN ELECTRONICALLY SIGNED BY: ??JULIETTE Varela, SILVIA ??ON: ??Jul 08 2013 10:45P Procedure Note Provider, Tyler, - 08/12/2016 DATE OF EXAM: Jul 08 2013 4:28PM Acc#: [id number] EDX 0031 - XR Chest Portable DIAGNOSIS: DIFFICULTY BREATHING CLINICAL HISTORY: Breathing Problems_Breathing Problems RESULT: \ SINGLE VIEW CHEST: HISTORY: Difficulty breathing. Examination of the chest in the AP projection shows the lungs are clear. There is no infiltrate, effusion, pneumothorax, or congestion. The heart is not enlarged. IMPRESSION: \ 1. NO ACTIVE CARDIAC OR PULMONARY DISEASE. 2. THE PATIENT IS QUITE OBESE. JUDICIAL ADMINISTRATIVE ASSISTANT: JAMISON TRANSCRIBE DATE/TIME: Jul 08 2013 6:35P [...] Organization Address City/[facility] Co de Phone Number HISTORICAL RESULTS [...] morphologic exam (07/08/2013 4:15 PM CDT) Pathologist [facility] WBC 10.6(H) 5.0 - 10.0 K/cumm HISTORICAL [...] Final Resu lt Performing Organization Address [facility] de Phone Number HISTORICAL RESULTS * Blood B-type natriuretic peptide (BNP) (07/08/2013 4:15 PM CDT) Pathologist [facility] BNP 19 0 - 100 pg/ml HISTORICAL RESULTS Blood specimen (specimen) 07/08/2013 4:15 PM CDT Loren Bonner MD LAB BLOOD ORDERABLES Final Resu lt Performing Organization Address [facility] de Phone Number HISTORICAL RESULTS * Plasma troponin I (07/08/2013 4:15 PM CDT) Troponin I <0.03 0.00 - 0.14 ng/ml HISTORICAL RESULTS Comment: Troponin Reference Ranges: Normal: ?0.00 - 0.14 ng/mL Indeterminate: ?0.15 - 0.50 ng/mL NV / Cardiac Muscle Damage: ?>0.50 ng/mL Plasma 07/08/2013 4:15 PM CDT Loren Bonner MD LAB BLOOD ORDERABLES Final Resu lt Performing Organization Address [facility] de Phone Number HISTORICAL [...] HISTORICAL RESULTS Comment: If this individual is -Indonesian, multiply result by 1.21 Repeated results of [...] taken into account in patient management. ? Lroen Bonner MD LAB BLOOD ORDERABLES Final Resu lt HISTORICAL RESULTS * ELECTROCARDIOGRAPHY (ECG) (07/08/2013) Narrative 07/08/2013 Ordered by an unspecified provider. Historical Provider ECG ORDERABLES Final Res ult documented in this encounter Visit Diagnoses Diagnosis Other nonspecific abnormal cardiovascular system function study Intermediate coronary syndrome (CMS/HCC) (HCC) Intermediate coronary syndrome Family history of other cardiovascular diseases documented in this encounter Care Teams Sharebroker Relationship Specialty Start Date End Date Antoinette Zhu MD [id number] [address] PCP - General 03/12/13 07/31/13 documented as of this encounter
--- OUTSIDE RECORDS SUMMARY | 2024-04-26 09:38 | XMS_ITS | Encounter Summary ---
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 [id number] ??Acc#: ??[id number] DATE OF EXAM: ??Sep 06 2012 CLINICAL [...] on: ??Sep 07 2012 6:26A Transcribed by: ??[facility] ??On: Sep 07 2012 ??9:54A Approved Electronically by: ??BEAU Varela, DR MORALES ??on: ??Sep 10 2012 8:23A Ordering BIANCA BARBER Attending BIANCA ZHU Procedure Note Provider, Tyler, - 08/12/2016 XR Chest Portable [id number] Acc#: [id number] DATE OF EXAM: Sep 06 2012 CLINICAL [...] time (PTT) (09/06/2012 6:40 PM CDT) Pathologist [facility] APTT 26.9 -<34. seconds HISTOR ICAL RESULTS Plasma 09/06/2012 6:40 PM CDT Buddyv K Barber LAB BLOOD ORDERABLES Final Resul t Performing Organization Address [facility] [[email or web address]] de Phone Number HISTORICAL RESULTS * Plasma prothrombin time (PT) (09/06/2012 6:40 PM CDT) Pathologist [facility] Prothrombin time (PT) 13.3 11.4 - 14.0 [...] Administration recommendations. Plasma 09/06/2012 6:40 PM CDT Expreem Barber LAB BLOOD ORDERABLES Final Resul t Performing Organization Address [email or web address]] de Phone Number HISTORICAL RESULTS * Serum creatine kinase (CK) MB confirmation (09/06/2012 6:40 PM CDT) Pathologist [facility] CK MB 1 0 - 5 ng/ml HISTORIC AL RESULTS Serum 09/06/2012 6:40 PM CDT [facility] LAB BLOOD ORDERABLES Final Resul t Performing Organization Address [email or web address] de Phone Number HISTORICAL RESULTS * (ABNORMAL) Serum thyroid-stimulating hormone (TSH) (09/06/2012 6:40 PM CDT) Pathologist [facility] TSH <0.04(A) 0.35 - 4.80 mcIUnits/ml HISTORICAL RESULTS Serum 09/06/2012 6:40 PM CDT [facility] LAB BLOOD ORDERABLES Final Resul t Performing Organization Address [facility] [[email or web address] de Phone Number HISTORICAL RESULTS * Serum magnesium (09/06/2012 6:40 PM CDT) Pathologist [facility] Magnesium 1.7 1.5 - 2.2 mg/dl HISTORICAL RESULTS Serum 09/06/2012 6:40 PM CDT [facility] LAB BLOOD ORDERABLES Final Resul t Performing Organization Address [email or web address] de Phone Number HISTORICAL RESULTS * (ABNORMAL) Blood cell count (CBC) (09/06/2012 6:40 PM CDT) Pathologist [facility] WBC 9.2 4.0 - 10.5 K/cumm HISTORICAL [...] Blood specimen (specimen) 09/06/2012 6:40 PM CDT [facility] LAB BLOOD ORDERABLES Final Resul t Performing Organization Address [email or web address] de Phone Number HISTORICAL RESULTS * (ABNORMAL) [...] Blood specimen (specimen) 09/06/2012 6:40 PM CDT [facility] LAB BLOOD ORDERABLES Final Resul t Performing Organization Address [email or web address] de Phone Number HISTORICAL RESULTS * (ABNORMAL) [...] HISTORICAL RESULTS Comment: eGFR:68 ml/min/1.73sq.m if non -Chilean. eGFR: >70 ml/min/1.73sq.m if -Chilean. AVE GFR for 50-59 yr. age group: [...] HISTORICAL RESULTS Serum 09/06/2012 6:40 PM CDT [facility] LAB BLOOD ORDERABLES Final Resul t HISTORICAL RESULTS * Blood B-type natriuretic peptide (BNP) (09/06/2012 1:40 PM CDT) BNP 8 -<100 pg/ml HISTORIC AL RESULTS Blood specimen (specimen) 09/06/2012 1:40 PM CDT Narrative HISTORICAL RESULTS - 09/06/2012 2:44 PM CDT BNP REFERENCE RANGE <100 pg/ml [facility] LAB BLOOD ORDERABLES Final Resul t HISTORICAL [...] of Pulmonary Embolism or Deep Vein Thrombosis. Crysalin Barber LAB BLOOD ORDERABLES Final Resul t Performing Organization Address City/State/[facility] Co de Phone Number HISTORICAL RESULTS * Serum troponin I (09/06/2012 1:40 PM CDT) Troponin I 0.05 0.00 - 0.10 ng/ml HISTORICAL RESULTS Serum 09/06/2012 1:40 PM CDT Narrative HISTORICAL RESULTS - 09/06/2012 2:31 PM CDT NEGATIVE: ??0.00 - 0.10 NG/ML INDETERMINATE: ??0.11 - 0.50 NG/ML POSITIVE: ??GREATER THAN 0.50 NG/ML [facility] LAB BLOOD ORDERABLES Final Resul t Performing Organization Address [email or web address] de Phone Number HISTORICAL RESULTS * Discharge Laboratory Cumulative Report (09/06/2012 12:00 AM CDT) 09/06/2012 Narrative HISTORICAL RESULTS - 09/07/2012 12:25 AM CDT Patient No: [id number] ? [facility] Patient Name: MOHSEN SALAZAR ? [facility] Healthcare Age: 57 YRS ?: 1955 ?Sex:F ?[address] )[id number] ?? Adm Dt: 09/06/2012 ?[place], [place] ??[address] Created: 09/07/2012 ??0025 ?? Pt. Type: E [...] ?? CONTINUED ?Page: ?? 1 Patient No: [id number] ? [facility] Patient Name: MOHSEN SALAZAR ? [facility] Age: 57 YRS ?: 1955 ?Sex:F ?[address] )[id number] ?? Adm Dt: 09/06/2012 ?[place] ??[id number] Created: 09/07/2012 ??0025 ?? Pt. Type: E [...] f ?09/06/12 1840 eGFR:68 ml/min/1.73sq.m if non -Chilean. eGFR: >70 ml/min/1.73sq.m if -Chilean. AVE GFR for 50-59 yr. age group: ??93 ml/min/1.73sq.m Calculated using MDRD Equation FOOTNOTE ADDED ON ?? 09/06/12 ?? AT 1918 BY 999 [1.5-2.2] ?? MG/DL ?MAGNESIUM ?1.7 Footnotes and Symbols: L = Low, H = High, f = Footnote BNP (02/01/08 -- Current) BNP REFERENCE RANGE <100 pg/ml ?? CONTINUED ?Page: ?? 2 Patient No: [id number] ? [facility] Patient Name: MOHSEN SALAZAR ? [facility] Healthcare Age: 57 YRS ?: 1955 ?Sex:F ?[address] )[phone] ?? Adm Dt: 09/06/2012 ?[place], [place] ??[address] Created: 09/07/2012 ??0025 ?? Pt. Type: E [...] ?? CONTINUED ?Page: ?? 3 Patient No: [id number] ? [facility] Patient Name: MOHSEN SALAZAR ? [facility] Age: 57 YRS ?: 1955 ?Sex:F ?[address] )[id number] ?? Adm Dt: 09/06/2012 ?[place], [place] ??[address] Created: 09/07/2012 ??0025 ?? Pt. Type: E [...] neuropathy documented in this encounter Care Teams Kiln Car Unloader Relationship Specialty Start Date End Date Ángela Zhu MD [address] [address] PCP - General 05/23/12 03/11/13 documented as of this encounter
== END 2024-04-19 04:25 | disposition left against medical advice (07) ==
PROVIDERS: Emergency Provider Emergency Medicine; PCP Internal Medicine
DX: M54.50 Low back pain, unspecified (principal); R39.198 Other difficulties with micturition
CPT/HCPCS: 81001; 87086; 99199

== ENCOUNTER 2024-04-19 05:06 | Emergency (ER) | payer MEDICARE, SELFPAY ==
--- NOTE | ~2024-04-19 | CT_ITS ---
EXAMINATION: CT abdomen pelvis wo con DATE: 04/19/2024 12:20 INDICATION: Flank pain TECHNIQUE: Computed tomography (CT) of the abdomen and pelvis was performed without intravenous contr ast. Automated exposure control and iterative reconstruction technique were employed. The dose-length product was 1421.15 mGy-cm. COMPARISON: 01/07/2024 FINDINGS: Mild atelectasis in bilateral lower lungs. Heart size is normal. No pericardial or pleural effusion. Mitral annular and aortic valve calcifications. No pericardial or pleural effusion. Cholecystectomy c lips the gallbladder fossa. Liver, spleen, pancreas and bilateral adrenal glands are normal. 1.8 cm r ight renal cyst. Postoperative change of prior infraumbilical ventral hernia repair. Mild to moderate sigmoid predominant diverticulosis without adjacent comparison to suggest diverticular colitis. Smal l bowel and appendix are normal. Bladder, uterus and left ovary are normal. Status post right oophore ctomy. No free intraperitoneal gas or fluid. No pathologically enlarged or pelvic lymphadenopathy. Mo derate thoracic spondylosis. Spinal stimulator leads project over the posterior central canal at the level of T8 laminectomy. Relatively symmetric bilateral sacroiliitis.. Osteitis pubis. IMPRESSION: 1. No acute intra-abdominal/pelvic process. 2. Diverticulosis. Reviewed, dictated and finalized at location B. EWATER ENGINEER
[2024-04-19 05:07] VITALS: BP 154/77; PULSE 81; RESP 18; TEMP 36.6; O2SAT 99
[2024-04-19 08:45] VITALS: BP 162/76; PULSE 69; RESP 20; TEMP 36.2; O2SAT 99
[2024-04-19 10:13] VITALS: BP 154/103; PULSE 74; RESP 15; O2SAT 99
--- NOTE | 2024-04-19 11:01 | ED_ITS ---
HPI - General Adult General Chief complaint: Urogenital-Female Stated complaint: UTI Time Seen by Provider: 04/19/24 09:55 History of Present Illness HPI narrative: 68-year-old female with history of UTI and kidney stones present to the emergency department for evaluation for urinary symptoms. Patient states that she started developing some pain with urination about 4 5 days ago then developed the back pain today which is why she presented to the emergency department. Patient does have significant allergies and does take Augmentin typically for her UTIs. Patient does have follow-up scheduled in April with an records officer. Related Data Home Medications ?Medication ?Instructions ?Recorded ?Confirmed ?Last Taken ?Type exemestane 25 mg tablet 25 mg PO HS 01/06/20 12/05/23 12/04/23 22:00 History insulin glargine 100 unit/mL (3 32 unit subcut QAM 01/06/20 12/05/23 12/04/23 11:00 History mL) subcutaneous pen (Lantus Solostar U-100 Insulin) ropinirole 5 mg tablet 5 mg PO HS 01/06/20 12/05/23 12/04/23 22:00 History insulin lispro 100 unit/mL 28 unit subcut TID 03/19/22 12/05/23 Unknown History subcutaneous pen (Humalog KwikPen (U-100) Insulin) oxybutynin chloride 15 mg 15 mg PO DAILY 11/06/22 12/05/23 12/04/23 11:00 History tablet,extended release 24 hr gabapentin 300 mg capsule 300 mg PO TID 06/25/23 12/05/23 12/04/23 22:00 History methenamine hippurate 1 gram tablet g 12/12/23 12/12/23 Unknown History Allergies Allergy/AdvReac Type Severity Reaction Status Date / Time ceftriaxone Allergy Severe SOB Verified 04/19/24 10:13 cephalexin Allergy Severe Difficulty Verified 04/19/24 10:13 Breathing Cephalosporins Allergy Severe Difficulty Verified 04/19/24 10:13 Breathing lorazepam Allergy Severe Swelling Verified 04/19/24 10:13 trazodone Allergy Severe Swelling Verified 04/19/24 10:13 of Lip/Tongue/Throat metoclopramide Allergy Intermediate Other Verified 04/19/24 10:13 chlorhexidine Allergy Mild BLISTERING Verified 04/19/24 10:13 levofloxacin Allergy Mild Hives / Verified 04/19/24 10:13 Red Face ketorolac Allergy Itching Verified 04/19/24 10:13 latex Allergy Rash Verified 04/19/24 10:13 meropenem Allergy Rash Verified 04/19/24 10:13 nitrofurantoin Allergy Itching Verified 04/19/24 10:13 sulfamethoxazole (From Allergy Itching Verified 04/19/24 10:13 Sulfamethoxazole-Trimethoprim) trimethoprim (From Allergy Itching Verified 04/19/24 10:13 Sulfamethoxazole-Trimethoprim) oxycodone AdvReac Mild Vomiting Verified 04/19/24 10:13 amlodipine AdvReac Swelling Verified 04/19/24 10:13 lisinopril AdvReac Swelling Verified 04/19/24 10:13 pregabalin AdvReac Swelling Verified 04/19/24 10:13 reslizumab AdvReac Unknown Verified 04/19/24 10:13 Review of Systems 2 Review of Systems: All systems reviewed & are unremarkable except as noted in HPI and below PMFSH Past Medical History Medical History Anxiety Breast cancer Chronic anticoagulation Chronic back pain Collagenous colitis Congestive heart failure COVID-19 Deep venous thrombosis Depression Irritable bowel syndrome Kidney stone Morbid obesity Multiple thyroid nodules Obstructive sleep apnea on CPAP Overactive bladder Peripheral neuropathy Pulmonary embolism positive for coagulation workup Restless leg syndrome Type 2 diabetes mellitus Surgical History Surgical History History of bilateral mastectomy History of cardiac catheterization Reportedly negative for coronary artery disease. History of cholecystectomy History of colonoscopy History of cystoscopy History of esophagogastroduodenoscopy (EGD) History of right oophorectomy History of total right knee replacement History of umbilical hernia repair History of ureter stent Status post insertion of spinal cord stimulator Family History Family History Mother Diabetes mellitus Acute myocardial infarction Cerebrovascular accident Hypertension Congestive heart failure Father Prostate carcinoma Sibling Breast cancer Acute myocardial infarction Chronic obstructive pulmonary disease Social History Social History Social History: Surrogate medical decision maker: Jimmie Marques, spouse. Code status: Full code. Smoking packs per day: 0 Smoking cigarettes per day: 0.0 Years smoked: 2 Smoking pack-years: 0.00 Smoking status: Former smoker Second hand tobacco smoke exposure: Yes Alcohol intake: never Substance use: never Substance use type: does not use Do You Feel Safe in your Home?: Yes Lack of Transportation: No Lack of Food: Never True Current Housing: I Have Housing Concerned About Future Housing: No Difficulty Paying Gas/Electric Bills: No Difficulty Paying for Meds: No Currently Unemployed: No Education: Decline to Answer Difficulty w/ Childcare or Family Care: No Living arrangements: with family Additional occupation/education comments: Disabled. Spiritual care concerns: No Exam 2 Narrative: APPEARANCE: Uncomfortable appearing HEAD: normocephalic, atraumatic. EYES: PERRLA/EOMI, conjunctivae clear. NOSE: Normal no drainage EARS:TMS clear with good light reflex. THROAT: Pharynx clear, no exudate. NECK: Supple. No adenopathy, no masses. RESPIRATORY: Airway patent, respirations nonlabored. Clear to auscultation bilaterally, no rales, rhonchi, wheezing. CARDIOVASCULAR: Regular rate and rhythm without murmurs rubs or gallops. ABDOMINAL: Soft, nontender, nondistended, normal bowel sounds MUSCULOSKELETAL: Moves all extremities. Strength/ROM intact, No edema, No calf tenderness. NEURO: Alert. Cranial nerves II through XII intact. Good gait. Good coordination SKIN: Warm, dry. Normal Color Course Vital Signs Vital signs: Vital Signs Temperature 97.8 F 04/19/24 05:07 Pulse Rate 81 04/19/24 05:07 Respiratory Rate 18 04/19/24 05:07 Blood Pressure 154/77 H 04/19/24 05:07 Pulse Oximetry 99 04/19/24 05:07 Oxygen Delivery Room Air 04/19/24 05:07 Temperature 97.6 F 04/19/24 13:13 Pulse Rate 75 04/19/24 13:13 Respiratory Rate 17 04/19/24 13:13 Blood Pressure 150/90 H 04/19/24 13:13 Pulse Oximetry 98 04/19/24 13:13 Oxygen Delivery Room Air 04/19/24 05:07 Medical Decision Making MDM Narrative Medical decision making narrative: 68-year-old female presents emergency department for evaluation for urinary symptoms and back pain. Urinary analysis did show hematuria and bacteria. With patient's history of kidney stones and discomfort in the back CT without contrast was ordered. Patient was also ordered medications for pain control and patient did request Benadryl with the Augmentin. CT scan was ordered to evaluate for obstructing kidney stone with patient's history stone, no acute abnormality was noted on the CT scan. Will be discharged home with antibiotics for UTI, Augmentin, patient also has a urinary analysis pending. Patient was encouraged of close follow-up with her primary care physician. Differential Diagnosis Differential Diagnosis: UTI, urinary retention, colitis, diverticulitis, appendicitis, infected kidney stone Vital Signs Vital Signs: Vital Signs Temperature 97.8 F 04/19/24 05:07 Pulse Rate 81 04/19/24 05:07 Respiratory Rate 18 04/19/24 05:07 Blood Pressure 154/77 H 04/19/24 05:07 Pulse Oximetry 99 04/19/24 05:07 Oxygen Delivery Room Air 04/19/24 05:07 Temperature 97.6 F 04/19/24 13:13 Pulse Rate 75 04/19/24 13:13 Respiratory Rate 17 04/19/24 13:13 Blood Pressure 150/90 H 04/19/24 13:13 Pulse Oximetry 98 04/19/24 13:13 Oxygen Delivery Room Air 04/19/24 05:07 Lab Data Lab results reviewed: Yes I reviewed the patient's lab results. 04/19/24 11:49 04/19/24 11:49 Labs: Lab Results 04/19/24 Range/Units 11:49 WBC 9.5 (4.5-10.0) K/mm3 RBC 4.40 (4.2-5.4) M/mm3 Hgb 13.1 (12.0-15.0) g/dL Hct 41.5 (37.0-47.0) % MCV 94.3 (80-100) fl MCH 29.8 (26-34) pg MCHC 31.6 L (32-36) g/dl RDW 13.5 (11.5-14.5) % Plt Count 219 (150-375) k/mm3 MPV 9.5 (7.4-10.4) fl Immature Gran % (Auto) 0.4 (0-0.5) % Neut % (Auto) 66.1 (45.5-73.1) % Lymph % (Auto) 25.1 (18.3-44.2) % [place] % (Auto) 6.4 (2.6-8.5) % Eos % (Auto) 1.7 (0-4.4) % Baso % (Auto) 0.3 (0.2-1.2) % Lymph # (Auto) 2.39 (0.9-3.2) K/mm3 [place] # (Auto) 0.6 (0.1-0.6) K/mm3 Eos # (Auto) 0.2 (0-0.3) K/mm3 Baso # (Auto) 0.0 (0.0-0.1) K/mm3 Abs Immat Gran (auto) 0.04 H (0.00-0.031) K/mm3 Absolute Neuts (auto) 6.3 (1.3-6.7) K/mm3 Absolute Nucleated RBC 0.000 (0.0-0.012) K/mm3 Nucleated RBC % 0.0 (0.0-0.2) % PT 15.4 H (11.1-14.7) Seconds INR 1.2 APTT 23.5 (22.3-36.8) Seconds Sodium 136 L (137-145) mmol/L Potassium 4.1 (3.4-5.0) mmol/L Chloride 105 (98-107) mmol/L Carbon Dioxide 30 (22-30) mmol/L Anion Gap 1 L (4-12) mmol/L BUN 16 (7-17) mg/dL Creatinine 0.60 L (0.7-1.0) mg/dL Estim Creat Clear Calc Not Reportable Estimated GFR > 60 (59 - ) Glucose 177 H (65-110) mg/dL Calcium 9.3 (8.4-10.2) mg/dL Total Bilirubin 1.2 (0.2-1.3) mg/dL AST 27 (14-36) U/L ALT 30 (6-35) U/L Alkaline Phosphatase 72 (38-126) U/L Total Protein 8.0 (6.3-8.2) g/dL Albumin 3.7 (3.5-5.1) g/dL Imaging Data Radiologist's impression: Impressions Abdomen/Pelvis CT 04/19/24 12:33 IMPRESSION: 1. No acute intra-abdominal/pelvic process. 2. Diverticulosis. Discharge Plan Discharge Clinical Impression: Acute UTI Patient Disposition: Home, Self-Care Condition: Stable Instructions: Antibiotic Form, Urinary Tract Infection in Women (ED) Additional Instructions: Antibiotic as directed until completed. Have close follow-up with your primary care physician. If you have any worsening symptoms then please call or return to the emergency department. Home medications as directed for pain control. Patient Language: Setswana Prescriptions: New amoxicillin-pot clavulanate 875-125 mg tablet 1 tablet PO Q12H 10 Days Qty: 20 0RF No Action gabapentin 300 mg capsule 300 mg PO TID methenamine hippurate 1 gram tablet exemestane 25 mg tablet 25 mg PO HS ropinirole 5 mg tablet 5 mg PO HS insulin glargine [Lantus Solostar U-100 Insulin] 100 unit/mL (3 mL) insulin pen 32 unit SUBCUT QAM insulin lispro [Humalog KwikPen Insulin] 100 unit/mL insulin pen 28 unit SUBCUT TID albuterol sulfate 90 mcg/actuation HFA aerosol inhaler 1 inh inhalation QID PRN (Reason: shortness of breath or wheezing) Qty: 6.7 0RF oxybutynin chloride 15 mg tablet extended release 24hr 15 mg PO DAILY acetaminophen 325 mg Tablet 650 mg PO Q6H PRN (Reason: Pain 1-5 or Fever) Qty: 30 0RF Xarelto 20 mg tablet 20 mg PO 1700 Qty: 30 0RF hydrocodone-acetaminophen 10-325 mg tablet 1 tablet PO Q6H PRN (Reason: pain (scale score 7-10)) Qty: 10 0RF lidocaine [Lidoderm] 5 % adhesive patch,medicated 1 patch topical DAILY PRN (Reason: pain) Qty: 15 0RF Rx Instructions: leave on most painful area for up to 12 hrs orphenadrine citrate 100 mg tablet extended release 100 mg PO Q12H PRN (Reason: spasms) 10 Days Qty: 20 0RF Follow-up/Referrals: Shahla,Justen Spicer MD [Primary Care Provider] -
[2024-04-19 11:39] VITALS: BP 161/88; PULSE 70; RESP 16; O2SAT 99
[2024-04-19] MEDS: MORPHINE SULFATE (*CRX) 4 MG/ML INJ IV PUSH (11:49)
[2024-04-19] MEDS: diphenhydrAMINE HCl CAP 25 MG CAPSULE PO (11:53)
[2024-04-19] MEDS: AMOXICILLIN/CLAVULANATE K 875-125 MG TAB 1 TABLET PO (11:53)
[2024-04-19 11:57] LABS: Basophils Percent Auto 0.3 % (0.2-1.2); Eosinophils Absolute Auto 0.2 K/mm3 (0-0.3); Eosinophils Percent Auto 1.7 % (0-4.4); Hematocrit 41.5 % (37.0-47.0); Hemoglobin 13.1 g/dL (12.0-15.0); Immature Granulocyte Absolute 0.04 K/mm3 (0.00-0.031); Immature Granulocyte Percent A 0.4 % (0-0.5); Lymphocytes Absolute Auto 2.39 K/mm3 (0.9-3.2); Lymphocytes Percent Auto 25.1 % (18.3-44.2); Mean Corpuscular HGB Conc 31.6 g/dl (32-36); Mean Corpuscular Hemoglobin 29.8 pg (26-34); Mean Corpuscular Volume 94.3 fl (80-100); Mean Platelet Volume 9.5 fl (7.4-10.4); Monocytes Absolute Auto 0.6 K/mm3 (0.1-0.6); Monocytes Percent Auto 6.4 % (2.6-8.5); Neutrophils Absolute Auto 6.3 K/mm3 (1.3-6.7); Neutrophils Percent Auto 66.1 % (45.5-73.1); Platelet Count Result 219 k/mm3 (150-375); Red Cell Distribution Width 13.5 % (11.5-14.5); White Blood Count 9.5 K/mm3 (4.5-10.0)
[2024-04-19 12:07] LABS: Alanine Aminotransferase 30 U/L (6-35); Albumin Level 3.7 g/dL (3.5-5.1); Alkaline Phosphatase 72 U/L (38-126); Anion Gap 1 mmol/L (4-12); Aspartate Amino Transferase 27 U/L (14-36); Bilirubin,Total 1.2 mg/dL (0.2-1.3); Blood Urea Nitrogen 16 mg/dL (7-17); Calcium 9.3 mg/dL (8.4-10.2); Carbon Dioxide 30 mmol/L (22-30); Chloride 105 mmol/L (98-107); Estimated Glomerular Filt Rate > 60; Glucose 177 mg/dL (65-110); Potassium 4.1 mmol/L (3.4-5.0); Sodium 136 mmol/L (137-145)
[2024-04-19 12:11] LABS: INR 1.2; Prothrombin Time 15.4 Seconds (11.1-14.7)
[2024-04-19 12:12] LABS: Partial Thromboplastin Time 23.5 Seconds (22.3-36.8)
[2024-04-19 13:13] VITALS: BP 150/90; PULSE 75; RESP 17; TEMP 36.4; O2SAT 98
== END 2024-04-19 13:21 | disposition home or self-care (01) ==
PROVIDERS: Emergency Provider Emergency Medicine; PCP Internal Medicine
DX: N39.0 Urinary tract infection, site not specified (principal); Z79.4 Long term (current) use of insulin; Z85.3 Personal history of malignant neoplasm of breast; Z86.718 Personal history of other venous thrombosis and embolism; Z79.01 Long term (current) use of anticoagulants; E66.01 Morbid (severe) obesity due to excess calories; Z86.711 Personal history of pulmonary embolism; E11.9 Type 2 diabetes mellitus without complications; I50.9 Heart failure, unspecified; G47.33 Obstructive sleep apnea (adult) (pediatric); Z99.89 Dependence on other enabling machines and devices
CPT/HCPCS: 36415; 74176; 80053; 85025; 85610; 85730; 96374; 99284; A9270; J2270

== ENCOUNTER 2024-05-14 21:46 | Emergency (ER) | payer MEDICARE, SELFPAY ==
--- NOTE | ~2024-05-14 | XR_ITS ---
Left Shoulder Technique: AP and scapular Y views were obtained. Clinical History: Pain Findings: No fracture or dislocation is seen. Osseous alignment is anatomic. The glenohumeral and acr omioclavicular joint spaces are preserved. Soft tissues are unremarkable. Impression: Unremarkable left shoulder radiographs. Reviewed, dictated and finalized at [facility]. ARATION SUPERVISOR Impression: Unremarkable left shoulder radiographs.
--- NOTE | ~2024-05-14 | XR_ITS ---
Clinical Indication: Left rib pain PA and lateral views of the chest: Comparison: 12/07/2023 Findings: The lungs are clear, without evidence of focal consolidation or pleural effusion. Cardiome diastinal silhouette is within normal limits. Bones and soft tissues are unremarkable. Stable spinal stimulator. Impression: Clear lungs. Reviewed, dictated and finalized at location . ECTING ENGINEER Impression: Clear lungs.
[2024-05-14 21:51] VITALS: BP 159/76; PULSE 87; RESP 20; TEMP 36.4; O2SAT 96
--- NOTE | 2024-05-15 00:10 | ED_ITS ---
HPI - Extremity Problem General Chief complaint: Extremity Problem,Nontraumatic Stated complaint: arm pain Time Seen by Provider: 05/14/24 23:40 Source: patient Mode of arrival: ambulatory Limitations: no limitations History of Present Illness HPI Narrative: This is a 68 year old female that presents to the ER for left shoulder pain. Ongoing intermittently over the last 2 weeks. No known injuries. Reports the pain radiates from the shoulder to the left side of her ribs. Denies fever, cough, shortness of breath, weakness, numbness. Related Data Home Medications ?Medication ?Instructions ?Recorded ?Confirmed ?Last Taken ?Type exemestane 25 mg tablet 25 mg PO HS 01/06/20 12/05/23 12/04/23 22:00 History insulin glargine 100 unit/mL (3 32 unit subcut QAM 01/06/20 12/05/23 12/04/23 11:00 History mL) subcutaneous pen (Lantus Solostar U-100 Insulin) ropinirole 5 mg tablet 5 mg PO HS 01/06/20 12/05/23 12/04/23 22:00 History insulin lispro 100 unit/mL 28 unit subcut TID 03/19/22 12/05/23 Unknown History subcutaneous pen (Humalog KwikPen (U-100) Insulin) oxybutynin chloride 15 mg 15 mg PO DAILY 11/06/22 12/05/23 12/04/23 11:00 History tablet,extended release 24 hr gabapentin 300 mg capsule 300 mg PO TID 06/25/23 12/05/23 12/04/23 22:00 History methenamine hippurate 1 gram tablet g 12/12/23 12/12/23 Unknown History Allergies Allergy/AdvReac Type Severity Reaction Status Date / Time ceftriaxone Allergy Severe SOB Verified 04/19/24 10:13 cephalexin Allergy Severe Difficulty Verified 04/19/24 10:13 Breathing Cephalosporins Allergy Severe Difficulty Verified 04/19/24 10:13 Breathing lorazepam Allergy Severe Swelling Verified 04/19/24 10:13 trazodone Allergy Severe Swelling Verified 04/19/24 10:13 of Lip/Tongue/Throat metoclopramide Allergy Intermediate Other Verified 04/19/24 10:13 chlorhexidine Allergy Mild BLISTERING Verified 04/19/24 10:13 levofloxacin Allergy Mild Hives / Verified 04/19/24 10:13 Red Face ketorolac Allergy Itching Verified 04/19/24 10:13 latex Allergy Rash Verified 04/19/24 10:13 meropenem Allergy Rash Verified 04/19/24 10:13 nitrofurantoin Allergy Itching Verified 04/19/24 10:13 sulfamethoxazole (From Allergy Itching Verified 04/19/24 10:13 Sulfamethoxazole-Trimethoprim) trimethoprim (From Allergy Itching Verified 04/19/24 10:13 Sulfamethoxazole-Trimethoprim) oxycodone AdvReac Mild Vomiting Verified 04/19/24 10:13 amlodipine AdvReac Swelling Verified 04/19/24 10:13 lisinopril AdvReac Swelling Verified 04/19/24 10:13 pregabalin AdvReac Swelling Verified 04/19/24 10:13 reslizumab AdvReac Unknown Verified 04/19/24 10:13 Review of Systems 2 Review of Systems: CONSTITUTIONAL: Denies fever RESPIRATORY: Denies dyspnea. MUSCULOSKELETAL: Reports joint pain, and myalgia. NEUROLOGIC: Denies numbness, or weakness. All systems reviewed & are unremarkable except as noted in HPI and below PMFSH Past Medical History Medical History Anxiety Breast cancer Chronic anticoagulation Chronic back pain Collagenous colitis Congestive heart failure COVID-19 Deep venous thrombosis Depression Irritable bowel syndrome Kidney stone Morbid obesity Multiple thyroid nodules Obstructive sleep apnea on CPAP Overactive bladder Peripheral neuropathy Pulmonary embolism positive for coagulation workup Restless leg syndrome Type 2 diabetes mellitus Surgical History Surgical History History of bilateral mastectomy History of cardiac catheterization Reportedly negative for coronary artery disease. History of cholecystectomy History of colonoscopy History of cystoscopy History of esophagogastroduodenoscopy (EGD) History of right oophorectomy History of total right knee replacement History of umbilical hernia repair History of ureter stent Status post insertion of spinal cord stimulator Family History Family History Mother Diabetes mellitus Acute myocardial infarction Cerebrovascular accident Hypertension Congestive heart failure Father Prostate carcinoma Sibling Breast cancer Acute myocardial infarction Chronic obstructive pulmonary disease Social History Social History Social History: Surrogate medical decision maker: Jimmie Marques, spouse. Code status: Full code. Smoking packs per day: 0 Smoking cigarettes per day: 0.0 Years smoked: 2 Smoking pack-years: 0.00 Smoking status: Former smoker Second hand tobacco smoke exposure: Yes Alcohol intake: never Substance use: never Substance use type: does not use Do You Feel Safe in your Home?: Yes Lack of Transportation: No Lack of Food: Never True Current Housing: I Have Housing Concerned About Future Housing: No Difficulty Paying Gas/Electric Bills: No Difficulty Paying for Meds: No Currently Unemployed: No Education: Decline to Answer Difficulty w/ Childcare or Family Care: No Living arrangements: with family Additional occupation/education comments: Disabled. Spiritual care concerns: No Exam 2 Narrative: GENERAL: Well-appearing, well-nourished, and in no acute distress. HEAD: Normocephalic, atraumatic. EYES: EOMI. CHEST: Clear to auscultation. No respiratory distress. No wheezes rales or rhonchi HEART: Regular rate and rhythm. No murmur heard. Normal peripheral pulses. EXTREMITIES: Normal range of motion. No edema, erythema. Normal radial pulse. Normal sensation SKIN: Warm, dry, no rash. NEURO: No focal deficits. Alert and oriented x3. PSYCH: Normal mood and affect Course Course Emergency Course: patient updated on workup and agrees with plan of care Vital Signs Vital signs: Vital Signs Temperature 97.5 F L 05/14/24 21:51 Pulse Rate 87 05/14/24 21:51 Respiratory Rate 20 05/14/24 21:51 Blood Pressure 159/76 H 05/14/24 21:51 Pulse Oximetry 96 05/14/24 21:51 Oxygen Delivery Room Air 05/14/24 21:51 Temperature 97.5 F L 05/14/24 21:51 Pulse Rate 77 05/15/24 01:55 Respiratory Rate 17 05/15/24 01:55 Blood Pressure 134/71 05/15/24 01:55 Pulse Oximetry 98 05/15/24 01:55 Oxygen Delivery Room Air 05/14/24 21:51 MDM - Extremity (Nontraumatic) MDM Narrative Medical decision making narrative: Patient presents to the emergency department for left shoulder/arm pain. Ongoing intermittently over the last couple of weeks. She is afebrile and nontoxic appearing. CBC and metabolic panel without concerning findings. EKG without concerning changes in baseline troponin is negative. Chest x-ray without acute cardiopulmonary abnormality. Left shoulder x-ray without acute findings. Patient set up for an US of the arm in the morning to rule out DVT. She will continue her blood thinner. Patient was updated on her workup and agrees with plan of care. She is to follow up with provider patient was given warnings to return the ER Differential Diagnosis Differential diagnosis: Likely cellulitis, deep venous thrombosis of upper extremity and other (muscle strain, shoulder sprain, rotator cuff pathology) Lab Data Attestation: I reviewed the patient's lab results. 05/15/24 00:36 05/15/24 00:36 Labs: Lab Results 05/15/24 Range/Units 00:36 WBC 9.8 (4.5-10.0) K/mm3 RBC 4.75 (4.2-5.4) M/mm3 Hgb 14.0 (12.0-15.0) g/dL Hct 44.6 (37.0-47.0) % MCV 93.9 (80-100) fl MCH 29.5 (26-34) pg MCHC 31.4 L (32-36) g/dl RDW 13.7 (11.5-14.5) % Plt Count 272 (150-375) k/mm3 MPV 9.3 (7.4-10.4) fl Immature Gran % (Auto) 0.3 (0-0.5) % Neut % (Auto) 61.3 (45.5-73.1) % Lymph % (Auto) 27.9 (18.3-44.2) % Kings % (Auto) 8.1 (2.6-8.5) % Eos % (Auto) 2.0 (0-4.4) % Baso % (Auto) 0.4 (0.2-1.2) % Lymph # (Auto) 2.73 (0.9-3.2) K/mm3 Kings # (Auto) 0.8 H (0.1-0.6) K/mm3 Eos # (Auto) 0.2 (0-0.3) K/mm3 Baso # (Auto) 0.0 (0.0-0.1) K/mm3 Abs Immat Gran (auto) 0.03 (0.00-0.031) K/mm3 Absolute Neuts (auto) 6.0 (1.3-6.7) K/mm3 Absolute Nucleated RBC 0.000 (0.0-0.012) K/mm3 Nucleated RBC % 0.0 (0.0-0.2) % PT 17.8 H (11.1-14.7) Seconds INR 1.4 APTT 29.2 (22.3-36.8) Seconds Sodium 139 (137-145) mmol/L Potassium 4.4 (3.4-5.0) mmol/L Chloride 101 (98-107) mmol/L Carbon Dioxide 31 H (22-30) mmol/L Anion Gap 7 (4-12) mmol/L BUN 18 H (7-17) mg/dL Creatinine 0.61 L (0.7-1.0) mg/dL Estim Creat Clear Calc 93 ml/min Estimated GFR > 60 (59 - ) Glucose 151 H (65-110) mg/dL Calcium 9.9 (8.4-10.2) mg/dL Total Bilirubin 0.5 (0.2-1.3) mg/dL AST 27 (14-36) U/L ALT 29 (6-35) U/L Alkaline Phosphatase 71 (38-126) U/L Troponin I < 0.012 (0.000-0.034) ng/mL Total Protein 8.0 (6.3-8.2) g/dL Albumin 4.0 (3.5-5.1) g/dL Imaging Data Radiologist's impression: Chest xray: No focal consolidation, pleural effusion or pneumothorax. No cardiomegaly Left shoulder x-ray: No acute fracture or dislocation. ECG Data EKG #1: ECG completion date: 05/15/24 EKG Interpretation: normal rate, sinus rhythm, no ST changes and normal QT Critical Care Time Critical Care Time Critical Care Time: No Discharge Plan Discharge Clinical Impression: Acute pain of left shoulder Patient Disposition: Home, Self-Care Condition: Stable Instructions: Shoulder Pain (ED) Additional Instructions: Return to the ER if you experience fever, weakness, numbness, redness and swelling of your arm, or any other symptoms that are concerning to you Rest, use ice/heat, take anti-inflammatories (Aleve, Ibuprofen, Naproxen, etc) or Tylenol as needed for pain You are scheduled for an US of your left arm at 7:30 in the morning. Report to [facility] Follow up with your primary care doctor Patient Language: Estonian Prescriptions: No Action gabapentin 300 mg capsule 300 mg PO TID methenamine hippurate 1 gram tablet exemestane 25 mg tablet 25 mg PO HS ropinirole 5 mg tablet 5 mg PO HS insulin glargine [Lantus Solostar U-100 Insulin] 100 unit/mL (3 mL) insulin pen 32 unit SUBCUT QAM insulin lispro [Humalog KwikPen Insulin] 100 unit/mL insulin pen 28 unit SUBCUT TID albuterol sulfate 90 mcg/actuation HFA aerosol inhaler 1 inh inhalation QID PRN (Reason: shortness of breath or wheezing) Qty: 6.7 0RF oxybutynin chloride 15 mg tablet extended release 24hr 15 mg PO DAILY acetaminophen 325 mg Tablet 650 mg PO Q6H PRN (Reason: Pain 1-5 or Fever) Qty: 30 0RF Xarelto 20 mg tablet 20 mg PO 1700 Qty: 30 0RF hydrocodone-acetaminophen 10-325 mg tablet 1 tablet PO Q6H PRN (Reason: pain (scale score 7-10)) Qty: 10 0RF lidocaine [Lidoderm] 5 % adhesive patch,medicated 1 patch topical DAILY PRN (Reason: pain) Qty: 15 0RF Rx Instructions: leave on most painful area for up to 12 hrs orphenadrine citrate 100 mg tablet extended release 100 mg PO Q12H PRN (Reason: spasms) 10 Days Qty: 20 0RF amoxicillin-pot clavulanate 875-125 mg tablet 1 tablet PO Q12H 10 Days Qty: 20 0RF Follow-up/Referrals: Shahla,Justen Spicer MD [Primary Care Provider] -
[2024-05-15] MEDS: ACETAMINOPHEN 500 MG TABLET 1000 MG PO (00:39)
[2024-05-15 00:41] LABS: Basophils Percent Auto 0.4 % (0.2-1.2); Eosinophils Absolute Auto 0.2 K/mm3 (0-0.3); Hematocrit 44.6 % (37.0-47.0); Immature Granulocyte Absolute 0.03 K/mm3 (0.00-0.031); Immature Granulocyte Percent A 0.3 % (0-0.5); Lymphocytes Absolute Auto 2.73 K/mm3 (0.9-3.2); Lymphocytes Percent Auto 27.9 % (18.3-44.2); Mean Corpuscular HGB Conc 31.4 g/dl (32-36); Mean Corpuscular Hemoglobin 29.5 pg (26-34); Mean Corpuscular Volume 93.9 fl (80-100); Mean Platelet Volume 9.3 fl (7.4-10.4); Monocytes Absolute Auto 0.8 K/mm3 (0.1-0.6); Monocytes Percent Auto 8.1 % (2.6-8.5); Neutrophils Percent Auto 61.3 % (45.5-73.1); Platelet Count Result 272 k/mm3 (150-375); Red Blood Count 4.75 M/mm3 (4.2-5.4); Red Cell Distribution Width 13.7 % (11.5-14.5); White Blood Count 9.8 K/mm3 (4.5-10.0)
[2024-05-15 00:52] LABS: Alanine Aminotransferase 29 U/L (6-35); Alkaline Phosphatase 71 U/L (38-126); Anion Gap 7 mmol/L (4-12); Aspartate Amino Transferase 27 U/L (14-36); Bilirubin,Total 0.5 mg/dL (0.2-1.3); Blood Urea Nitrogen 18 mg/dL (7-17); Calcium 9.9 mg/dL (8.4-10.2); Carbon Dioxide 31 mmol/L (22-30); Chloride 101 mmol/L (98-107); Estimated CRCL calculation 93 ml/min; Estimated Glomerular Filt Rate > 60; Glucose 151 mg/dL (65-110); Potassium 4.4 mmol/L (3.4-5.0); Sodium 139 mmol/L (137-145)
[2024-05-15 00:54] LABS: INR 1.4; Prothrombin Time 17.8 Seconds (11.1-14.7)
[2024-05-15 00:55] LABS: Partial Thromboplastin Time 29.2 Seconds (22.3-36.8)
[2024-05-15 01:03] LABS: Troponin I < 0.012 ng/mL (0.000-0.034)
[2024-05-15 01:55] VITALS: BP 134/71; PULSE 77; RESP 17; O2SAT 98
[2024-05-15 02:31] VITALS: BP 128/76; PULSE 76; RESP 16; O2SAT 98
--- OUTSIDE RECORDS SUMMARY | 2024-05-16 20:41 | XMS_ITS | Clinical Summary ---
Author Organization [facility] Address [address] [place] [address] Phone Care Team Providers Care Metrologist Name Role Phone Justen Gale MD Primary Care Provider [phone] David Roberts APRN, ANATOMY AND PHYSIOLOGY INSTRUCTOR Unavailable [phone] Annel Rod MD Unavailable Allergies Active Allergy [...] long-term current use of insulin ([facility]) Diagnosis: Diabetes Type 2 Blood testing [...] Blood Gluc Sensor (FreeStyle Eileen 2 Sensor) [employer] APPLY 1 SENSOR AND WEAR FOR 14 DAYS TO CHECK BLOOD SUGAR 6 Each 1 4 Active albuterol 108 (90 Base) MCG/ACT Aerosol Solution take 2 Puffs by inhalation. 1 Active gabapentin (NEURONTIN) 300 MG Capsule Take 300 mg by mouth. 4 Active Continuous Glucose Sensor (FreeStyle Eileen 2 Sensor) [employer] APPLY 1 SENSOR AND WEAR FOR 14 DAYS TO CHECK BLOOD SUGAR 6 Each 1 4 Active HYDROcodone-ac etaminophen (NORCO) 10-325 MG Tablet Take 1 Tablet by mouth. 4 Active insulin glargine (Lantus SoloStar) 100 UNIT/ML Solution Pen-injector 40 Units by Subcutaneous route nightly. 15 mL 4 Active Multiple Vitamins-Runnels als (WOMENS MULTI PO) Take by mouth. [...] Continuous Glucose Sensor (FreeStyle Eileen 2 Sensor) [employer] [facility] [employer] 1 Each by Does not apply route every 14 days. Change sensor every 14 days. E11.42, insulin dependent 6 Each 1 5 Active Continuous Blood Gluc Sensor (FreeStyle Eileen 2 Sensor) [employer] [facility] [employer] 1 Each by Does not apply route [...] Overview: Added automatically from request for surgery [id number] Lymphedema of left upper extremity 08/09/2016 Pulmonary embolism 08/09/2016 Overview (11/09/2017): Last Assessment & Plan: On Rivaroxaban Arthralgia of ankle 01/26/2015 Cellulitis of breast 11/11/2014 Encounters Date Type Department Care Team Description 05/14/2024 Nurse Triage [facility] [address] [place] [phone] Justen Gale MD Arm Swelling; Arm Pain 05/13/2024 Results Follow-Up [facility] [address] [place] [address] Justen Gale MD 04/23/2024 MyChart RX Renewal [facility] [address] [place] [phone] Annel Rod MD Medication Renewal Declined 04/23/2024 MyChart RX Renewal [facility] [address] [place] [address] Justen Gale MD Medication Renewal Request 03/26/2024 Nurse Triage [facility] [place] [facility] [address] [place] [phone] Justen Gale MD Advice Only; Referral; Wrist Pain; Lump 03/18/2024 Nurse Triage [facility] [address] [place] [address] Justen Gale MD Palpitations 02/21/2024 Refill [facility] [address] [place] [address] Annel Rod MD Medication Refill from Last 3 Months Immunizations Immunization Administration Dates Next Due Covid-19 Vaccine, Vector-nr, Rs-ad26, Pf, 0.5 Ml (TabSprint/J&J) 06/29/2020 Influenza Vaccine greater than 3 yrs [...] Care Team (Late st Contact Info) Description 06/25/2024 2:45 PM WINDOWS SECURITY ANALYST Office Visit [facility] - Endocrinology - [place] [address] [place] [phone] Annel Rod MD #[address] [phone] 06/28/2024 1:15 PM WINDOWS SECURITY ANALYST Office Visit [facility] Endocrinology - [place] [address] [place] [address] Annel Rod MD #[address] [phone] Health Maintenance Due Date Last Done Comments Diabetes: Eye Exam 1956 Pneumococcal Immunization (50+ years) (1 of 2 - PCV) 1975 Zoster Immunization (1 of 2) 1975 Cologuard 2006 Respiratory Syncytial Virus (RSV) Immunization (Adult) (1 - Risk 60-74 years 1-dose series) 2016 Immunochemical Fecal Occult Blood 09/08/2019 09/07/2018, 08/31/2018 Diabetes: Foot Exam 08/12/2020 08/13/2019, 08/07/2019, 06/18/2019, Additional history exists Influenza Immunization (#1) 2023 09/2 09/2022, 01/17/2023, 01/03/2022, Additional history exists SARS-COV-2 Immunization (3 - season) 2023 05/04/2021, 06/29/2020 Diabetes: Hemoglobin A1c 04/14/202410/13/2 024, 10/02/2023, 08/14/2023, Additional history exists DEXA [...] Name Priority Date/Time Associated Diagnosis Comments XR - CHEST 05/15/2024 12:00 AM WINDOWS SECURITY ANALYST EXTERNAL GASTROENTEROLOGY REFERRAL Less Than 1 week 05/07/2024 12:00 AM WINDOWS SECURITY ANALYST Nausea and vomiting, unspecified vomiting type Pain of upper abdomen CT - ABDOMEN/PELVIS 04/19/2024 12:00 AM WINDOWS SECURITY ANALYST PAIN CONSULT 03/25/2024 12:00 AM WINDOWS SECURITY ANALYST CTA GENERIC 03/18/2024 12:00 AM WINDOWS SECURITY ANALYST US - LOWER EXTREMITY 03/18/2024 12:00 AM WINDOWS SECURITY ANALYST PAIN CONSULT 03/05/2024 12:00 AM WINDOWS SECURITY ANALYST PAIN CONSULT 02/28/2024 12:00 AM WINDOWS SECURITY ANALYST CMP (COMPREHENSIVE METABOLIC PANEL) 12/04/2023 12:00 AM CDT HEMOGLOBIN, A1C 10/02/2023 12:00 AM CDT HUMAN PAPILLOMA VIRUS (HPV) Routine 07/05/2022 2:24 PM CDT Encounter for gynecological examination with abnormal finding Encounter for screening for human papillomavirus (HPV) PATHOLOGY CYTOLOGY OENOLOGIST Routine 2:24 PM CDT Encounter for gynecological examination with abnormal finding HM COLONOSCOPY Routine 01/09/2020 AMB REFERRAL TO PODIATRY Routine 08/13/2019 POCT STOOL, OCCULT BLOOD, DIAGNOSTIC Routine 09/07/2018 1:20 PM CDT Generalized abdominal pain from Last 3 Months or Most Recently Relevant to Health Maintenance Results * XR - CHEST (05/15/2024 12:00 AM WINDOWS SECURITY ANALYST) 05/15/2024 us Provider Scan IMG DIAGNOSTIC ORDERABLES Final Result Performing Organization Address [facility] de Phone Number SCAN * EXTERNAL GASTROENTEROLOGY REFERRAL (05/07/2024 12:00 AM WINDOWS SECURITY ANALYST) 05/07/2024 us Justen Gale MD OUTPT REFERRALS EXT/INT Final Result Performing Organization [facility] de Phone Number SCAN * CT - ABDOMEN/PELVIS (04/19/2024 12:00 AM WINDOWS SECURITY ANALYST) 04/19/2024 us Provider Scan IMG CT ORDERABLES Final Result Performing Organization Address [facility] de Phone Number SCAN * PAIN CONSULT (03/25/2024 12:00 AM WINDOWS SECURITY ANALYST) Only the most recent of3 resultswithin the time period is included. 03/25/2024 us Justen Gale MD GENERIC SCAN ORDERS CONSULT F inal Result Performing Organization Address [facility] de Phone Number SCAN * US - LOWER EXTREMITY (03/18/2024 12:00 AM WINDOWS SECURITY ANALYST) 03/18/2024 us Provider Scan IMG US ORDERABLES Final Result Performing Organization Address [facility] de Phone Number SCAN * CTA MISCELLANEOUS (03/18/2024 12:00 AM WINDOWS SECURITY ANALYST) 03/18/2024 us Provider Scan IMG CT ORDERABLES Final Result SCAN * CMP (COMPREHENSIVE METABOLIC PANEL) (12/04/2023 12:00 AM CDT) 12/04/2023 us Provider Scan CHEMISTRY ORDERABLES Final Resul t SCAN * HEMOGLOBIN, A1C (10/02/2023 12:00 AM CDT) HGB-A1C 7.8 SCAN 10/02/2023 us Provider Scan CHEMISTRY ORDERABLES Final Resul t Performing Organization Address [facility] Co de Phone Number SCAN * PATHOLOGY CYTOLOGY OENOLOGIST (07/05/2022 2:24 PM CDT) SPECIMEN ADEQUACY A scant cellular component is noted. Scant cellularity is likely due to presence of lubricant. 07/08/2022 8:[address] [facility] DESCRIPTIVE DIAGNOSIS NEGATIVE FOR INTRAEPITHELIAL LESIONS OR MALIGNANCY. 07/08/2022 8:[address] [facility] R FINDINGS Atrophic hormonal pattern. 07/08/2022 8:[address] [facility] Automated Examination This sample was not evaluated by the automated imaging and review system ([employer]in[employer] Imaging System, [employer], [place], [place] due to technical and / or biologic factor(s). The case was screened, reviewed, and finalized by a grinding machine tender and / or pathologist. 07/08/2022 8:[address] [facility] Disclaimer The PAP smear is [...] unless clinically indicated. 07/08/2022 8:[address] [facility] Other (Cervix/Endocerv ix) Non-Phlebotomy Collection / Unknown 07/05/2022 2:24 PM CDT 07/05/2022 2:24 PM CDT us Pili Elkins APRN, CNP PATHOLOGY/CYTOLOGY O RDERABLES Final Result [facility] [address] [place] [address], [place] * HUMAN PAPILLOMA VIRUS (HPV) (07/05/2022 2:24 PM CDT) HPV OTHER HIGH RISK TYPES, PCR NEGATIVE NEGATIVE 07/06/2022 2:[address] [facility] Comment: The following Other High [...] 16 NEGATIVE NEGATIVE 07/06/2022 2:[address] [facility] Comment: A negative high-risk HPV [...] 18 NEGATIVE NEGATIVE 07/06/2022 2:[address] [facility] Comment: A negative high-risk HPV [...] OR DIAGNOSTIC SCREENING 07/06/2022 2:37 PM CDT [facility] Other Non-Phlebotomy Collection / Unknown 07/05/2022 2:24 PM CDT 07/05/2022 2:[address] [facility] - 07/06/2022 2:37 PM CDT Performed by Real-Time Polymerase Chain Reaction (PCR) on the [employer] 4800. This assay has been validated for use with post-aliquot samples from the [employer] T5000 processor. us Pili Elkins APRN, ANATOMY AND PHYSIOLOGY INSTRUCTOR LAB SEND OUTS Deann l Result [facility] [address] [place] [address], [facility] [address] [place] [address] * HM COLONOSCOPY (01/09/2020) us Genaro Jensen DO PROCEDURE/MINOR SURGICAL ORDERA BLES Final Result * AMB REFERRAL TO PODIATRY (08/13/2019) us Alvarez Mensah MD OUTPATIENT REFERRALS Final Res ult * POCT STOOL, OCCULT BLOOD, DIAGNOSTIC (09/07/2018 1:20 PM CDT) OCCULT BLOOD, STOOL Negative Negative, Other POC HEMOCULT CONTROL Senior Genetic Counselor Pass 09/07/2018 1:20 PM CDT Pili Brittni SENIOR SOFTWARE ENGINEER, ANATOMY AND PHYSIOLOGY INSTRUCTOR POINT OF CARE TESTIN G (MANUAL) Final Result from Last 3 Months or Most Recently Relevant to Health Maintenance Insurance MEDICARE C [employer] Care Teams Metrologist Relationship Specialty Start Date End Date Justen Gale MD [address]2 [facility] [address] [place] [address] PCP - General Family Medicine 10/17/17 David Roberts APRN, NETTA [address] [place] [address] Nurse Practitioner Advanced Practice Nurse 01/31/22 Annel Rod MD #2 [facility] [address] [place] [address] Consulting Physician Endocrinology 07/01/22
--- OUTSIDE RECORDS SUMMARY | 2024-05-16 20:41 | XMS_ITS | Encounter Summary ---
Author Organization [facility] Address [address] [place] [address] Phone Care Team Providers Care Tunnel Inspector Name Role Phone Justen Gale MD Primary Care Provider [phone] David Roberts APRN, JOURNEYMAN PIPEFITTER Unavailable [phone] Annel Rod MD Unavailable Reason for Visit * Reason Comments Medication Refill Encounter Details Date Type Department Care Team (Late st Contact Info) Description 07/06/2023 Refill [facility] - Family Medicine [facility] [address] [place] [phone] Justen Gale MD #[address] [address] Medication Refill Social History Tobacco Use Types [...] AM CDT Medication(s) refilled and signed per [facility] Chronic Medication Refill Standing Order [...] Dept 06/27/23 Office Visit Justen Gale MD [facility] [place] 01/17/23 Office Visit Catrina [facility] Showing recent visits within past 270 [...] st Contact Info) Description 06/25/2024 2:45 PM WICKER WORKER Office Visit [facility] - Endocrinology - [place] [address] [place] [address] Annel Rod MD [address] [place] [address] 06/28/2024 1:15 PM WICKER WORKER Office Visit [facility] Endocrinology - [place] [address] [place] [address] Annel Rod MD [facility] [address] [place] [address] documented as of this encounter Visit Diagnoses Not on filedocumented in this encounter Additional Health Concerns Assessment Noted Time PHQ-9 Depression Total Score: 8 01/18/20 23 2:24 PM CDT documented as of this encounter Care Teams Tunnel Inspector Relationship Specialty Start Date End Date Justen Gale MD [address] [place] [facility] [address] [place] [address] PCP - General Family Medicine 10/17/17 David Roberts APRN, NETTA [address] [place] [address] Nurse Practitioner Advanced Practice Nurse 01/31/22 Annel Rod MD [facility] [address] [place] [address] Consulting Physician Endocrinology 07/01/22 documented as of this encounter
--- OUTSIDE RECORDS SUMMARY | 2024-05-16 20:41 | XMS_ITS | Encounter Summary ---
Author Organization [facility] Address [address] [place] [address] Phone Care Team Providers Care Milk And Cream Grader Name Role Phone Justen Gale MD Primary Care Provider [phone] David Roberts APRN, CLEAN ROOM ASSEMBLER Unavailable [phone] Annel Rod MD Unavailable Reason for Visit * Reason Onset Date Comments Arm Swelling 05/14/2024 Arm Pain 05/14/2024 Encounter Details Date Type Department Care Team (Late st Contact Info) Description 05/14/2024 Nurse Triage [facility] [address] [place] [address] Justen Gale MD #[address] [address] Arm Swelling; Arm Pain Social History Tobacco Use Types [...] Telephone Encounter - Domitila Kilgore RN - 05/14/2024 8:36 PM CST Situation: Patient calling requesting advisement. Background: Patient contacting PCP office. Symptoms ongoing for 3-4 weeks. She saw her oncologist today due to swelling on the left side of her body. An XRAY was performed and they are planning to perform an ultrasound as well to rule out a blood clot. For the past half hour, patient has new pain. She has a history of blood clots. Assessment: Left arm pain -- moderate pain - worse with movement Arm, leg, face swelling on left side Dizziness present - off balance - intermittent and somewhat better Intermittently short of breath Recommendation: Advised for evaluation in the ED at this time. Discussed concerns about a possible blood clot and/or ruling out cardiac causes. Kemietn verbalized understanding. She reports she will make some phone calls and try to find a ride. Encouraged her to call back with any additional needs. Reason for Disposition Difficulty breathing or unusual sweating (e.g., sweating without exertion) Protocols used: Arm Pain-A-AH NEERING TEST MECHANIC documented in this encounter Plan of Treatment Upcoming Encounters Date Type Department Care Team (Late st Contact Info) Description 06/25/2024 2:45 PM ENGINEERING TEST MECHANIC Office Visit [facility] Endocrinology - [place] #[address] [place] [phone] Annel Rod MD [address] [phone] 06/28/2024 1:15 PM ENGINEERING TEST MECHANIC Office Visit [facility] Endocrinology - [place] [address] [place] [phone] Annel Rod MD #[address] [address] documented as of this encounter Visit Diagnoses Not on filedocumented in this encounter Additional Health Concerns Assessment Noted Time PHQ-9 Depression Total Score: 8 01/18/20 23 2:24 PM CDT documented as of this encounter Care Teams Milk And Cream Grader Relationship Specialty Start Date End Date Justen Gale MD #[address] [address] PCP - General Family Medicine 10/17/17 David Roberts APRN, NETTA [address] [place] [address] Nurse Practitioner Advanced Practice Nurse 01/31/22 Annel Rod MD #[address] [address] Consulting Physician Endocrinology 07/01/22 documented as of this encounter
--- OUTSIDE RECORDS SUMMARY | 2024-05-16 20:41 | XMS_ITS | Patient Health Summary ---
Author Organization [facility] Address [address] [place] [address] Care Team Providers Care Labor Relations Specialist Name Role Phone Justen Gale MD Primary Care Provider [phone] Note from [facility],non-owned Affiliates and Associated Physician Practices is amultiple site organization consisting of ambulatory clinics and hospital sitesin [place], [place], [place] and [place]. This disclosure is being madepursuant to the Care Everywhere program and may not contain all information available regarding this patient. Last updated 18.[facility] Allergies * Adhesive Sensitivity(Rash) -Medium Criticality * [...] Gluc Sensor (FreeStyle Eileen 2 Sensor Systm) [facility](Started 07/11/2023) APPLY 1 SENSOR AND WEAR FOR [...] SPLIT IM (FLUVIRIN)(Given 01/23/2016, 03/07/2014, 05/07/2013) * INFLUENZA VACCINE(Given 01/17/2023) * INFLUENZA VACCINE, ADJUVANTED, QUADR. (FLUAD [...] heating? Somewhat hard 05/16/2023 [facility] of Occupat ional Health - Occupational [...] PM CDT Medical Devices Implanted Type Area Hoop Bending Machine Operator Device Identifier Shelf Expiration Date Model / Serial / Lot Lead Nrstm 60cm Penta 3mm Pdl 16 Chnl Implanted:Qt y: 1 on 09/16/2021 by Maxi Gregg MD at [facility] [place] Right: Spine Thoracic Advanced [employer] [id number] / / Description:CAMILO Slnt Dura Duraseal Pg Trilysine Amine 5 Implanted:Qt y: 1 on 09/16/2021 by Maxi Gregg MD at [facility] [place] Right: Spine Thoracic Integra [employer] David [id number] / / Description:CAMILO Proclaim Plus 5 Implanted:Qt y: 1 on 02/16/2023 by Maxi Gregg MD at [facility] [place] Left: Back Cardenas Spine [id number] 11/07/2024 3670 / [id number] / Explanted Type Area Hoop Bending Machine Operator Device Identifier Shelf Expiration Date Model / Serial / Lot Gntr Nrstm 1.95inx2.19in Proclaim Elt Implanted:Qty: 1 on 09/16/2021 by Maxi Gregg MD at [facility] [place] Explanted:Qty: 1 on 10/30/2021 by Maxi Gregg MD at [facility] Right: Spine Thoracic [facility] [...] Escherichia coli(A) TERRANCE 08/03/2023 12:49 AM CDT [facility] Urine URINE SPECIMEN OBTAINED BY [...] [facility]/ZIP Co de Phone Number [facility] [address] [place] [address], [facility] [phone] * (ABNORMAL) GLUCOSE - POINT OF CARE (08/01/2023 11:36 AM CDT) Only the most recent of153 resultswithin the time period is included. Pathologist [facility] [place] Glucose WB/POC 164(H) 70 - 115 mg/dL 08/01/2023 11:40 AM CDT [facility] Specimen Type Cap Fingerstick 2023 11:40 AM CDT [facility] Blood BLOOD SPECIMEN / Unknown 08/01/2023 11:36 AM CDT 08/01/2023 11:40 AM CDT Watson Bearden MD LAB - POINT OF CARE ORDERABLES [facility] [address] [place] [address], [place] [phone] * (ABNORMAL) URINALYSIS REFLEX TO MICROSCOPIC NO CULTURE (08/01/2023 9:31 AM CDT) Only the most recent of5 resultswithin the time period is included. Color UA Yellow Straw, Yellow 08/01/2023 10:03 AM [facility] Clarity UA Slt Cloudy(A) Clear 08/01/2023 10:03 AM [facility] Specific [place] UA 1.015 1.005 - 1.030 08/01/2023 10:03 AM [facility] pH UA 5.0 5.0 - 8.0 pH 08/01/2023 10:03 AM [facility] Protein UA Negative Negative 08/01/2023 10:03 AM [facility] Glucose UA Negative Negative 08/01/2023 10:03 AM [facility] Ketone UA Negative Negative 08/01/2023 10:03 AM [facility] Bilirubin UA Negative Negative 08/01/2023 10:03 AM [facility] Blood UA 1+(A) Negative 08/01/2023 10:03 AM [facility] Nitrite UA Positive(A) Negative 08/01/2023 10:03 AM [facility] Leukocyte Esterase 3+(A) Negative 08/01/2023 10:03 AM [facility] Urobilinogen UA Negative Negative mg/dL 08/01/2023 10:03 AM [facility] RBC UA 11-20(A) None Seen, 0-2, 3-5 /HPF 08/01/2023 10:03 AM [facility] WBC UA 51-100(A) None Seen, 0-5 /HPF 08/01/2023 10:03 AM [facility] WBC Clumps Occasional( A) None /HPF 08/01/2023 10:03 AM [facility] Bacteria UA 3+(A) None /HPF 08/01/2023 10:03 AM [facility] Squamous Epithelial Cells UA 0-2 None Seen, 0-2, 3-5 /HPF 08/01/2023 10:03 AM [facility] Mucus UA 1+ /LPF 08/01/2023 10:03 AM [facility] Urine URINE SPECIMEN OBTAINED BY CLEAN CATCH PROCEDURE / Unknown Collection / Unknown 08/01/2023 9:31 AM T 08/01/2023 9:51 AM [facility] - 08/01/2023 10:03 AM CDT Watson Bearden MD LAB - URINALYSIS ORD ERABLES [facility] [address] [place] [phone], [facility] [phone] * (ABNORMAL) CBC W/O DIFFERENTIAL (07/30/2023 1:28 AM CDT) Only the most recent of9 resultswithin the time period is included. WBC 11.6(H) 4.0 - 10.7 x10E9/L 07/30/2023 2:10 AM [facility] RBC Count 4.20 3.90 - 5.20 x10E12/L 07/30/2023 2:10 AM [facility] Hemoglobin 12.0 11.9 - 15.8 g/dL 07/30/2023 2:10 AM [facility] Hematocrit 37.1 34.8 - 46.1 % 07/30/2023 2:10 AM [facility] MCV 88.3 80.0 - 98.0 fL 07/30/2023 2:10 AM [facility] MCH 28.6 26.7 - 33.6 pg 07/30/2023 2:10 AM [facility] MCHC 32.3 31.7 - 36.3 g/dL 07/30/2023 2:10 AM [facility] RDW-CV 13.4 11.3 - 14.8 % 07/30/2023 2:10 AM [facility] Platelet Count 265 150 - 420 x10E9/L 07/30/2023 2:10 AM [facility] MPV 10.2 7.8 - 11.4 fL 07/30/2023 2:10 AM [facility] Blood BLOOD SPECIMEN / Unknown Lab Venipuncture / Unknown 07/30/2023 1:28 AM CDT 07/30/2023 2:04 AM CDT Brian Bravo MD LAB - HEMATOLOGY ORD ERABLES [facility] [address] [place] [address], [facility] [phone] * (ABNORMAL) RENAL FUNCTION PANEL (07/30/2023 1:28 AM [facility]) Only the most recent of3 resultswithin the time period is included. BUN 20 7 - 26 mg/dL 07/30/2023 2:31 AM [facility] Creatinine 0.67 0.56 - 0.96 mg/dL 07/30/2023 2:31 AM [facility] Sodium 136 136 - 145 mmol/L 07/30/2023 2:31 AM [facility] Potassium 4.4 3.5 - 4.5 mmol/L 07/30/2023 2:31 AM [facility] Chloride 101 98 - 107 mmol/L 07/30/2023 2:31 AM [facility] CO2 27 22 - 29 mmol/L 07/30/2023 2:31 AM [facility] Glucose 238(H) 70 - 115 mg/dL 07/30/2023 2:31 AM [facility] Albumin 2.9(L) 3.4 - 5.0 g/dL 07/30/2023 2:31 AM [facility] Calcium 9.4 8.4 - 10.2 mg/dL 07/30/2023 2:31 AM [facility] Phosphorus 3.0 2.9 - 5.1 mg/dL 07/30/2023 2:31 AM [facility] Anion Gap 8 6 - 16 07/30/2023 2:31 AM [facility] BUN/Creatinine Ratio 30(H) 7 - 23 07/30/2023 2:31 AM [facility] Osmolality Calculated 292 275 - 295 mOsm/kg 07/30/2023 2:31 AM [facility] eGFR by CKD-EPI >90 >=90 mL/min/1.7 3 m2 07/30/2023 2:31 AM [facility] Blood BLOOD SPECIMEN / Unknown Lab Venipuncture / Unknown 07/30/2023 1:28 AM CDT 07/30/2023 2:04 AM CDT Brian Bravo MD LAB - CHEMISTRY ANGEL SPEARS Performing Organization Address City/[facility]/ZIP Co de Phone Number [facility] [address] [place] [phone], [facility] [phone] * MAGNESIUM BLOOD (07/30/2023 1:28 AM CDT) Only the most recent of7 resultswithin the time period is included. Magnesium 1.8 1.6 - 2.6 mg/dL 07/30/2023 2:31 AM CDT [facility] Blood BLOOD SPECIMEN / Unknown Lab Venipuncture / Unknown 07/30/2023 1:28 AM CDT 07/30/2023 2:04 AM CDT Brian Bravo MD LAB - CHEMISTRY ANGEL SPEARS Performing Organization Address [facility]/ZIP Co de Phone Number [facility] [address] [place] [phone], [facility] [phone] * VAS LEFT VENOUS DUPLEX LE (07/27/2023 [...] Culture to follow 07/27/2023 6:58 AM CDT [facility] RBC UA 0-2 None Seen, 0-2, 3-5 /HPF 07/27/2023 6:58 AM CDT [facility] WBC UA 21-50(A) None Seen, 0-5 /HPF 07/27/2023 6:58 AM [facility] Bacteria UA Trace(A) None /HPF 07/27/2023 6:58 AM [facility] Squamous Epithelial Cells UA None Seen None Seen, 0-2, 3-5 /HPF 07/27/2023 6:58 AM [facility] Mucus UA 1+ /LPF 07/27/2023 6:58 AM [facility] Urine URINE SPECIMEN OBTAINED BY CLEAN CATCH PROCEDURE / Unknown Collection / Unknown 07/27/2023 6:19 AM CDT 07/27/2023 6:29 AM T [facility] - 07/27/2023 6:58 AM CDT Choco Martin MD LAB - URINALYSIS ORD ERABLES [facility] [address] [place] [address], [facility] [phone] * (ABNORMAL) URINALYSIS REFLEX MICROSCOPIC REFLEX CULTURE (07/27/2023 6:19 AM CDT) Only the most recent of6 resultswithin the time period is included. Color UA Yellow Straw, Yellow 07/27/2023 6:46 AM [facility] Clarity UA Slt Cloudy(A) Clear 07/27/2023 6:46 AM [facility] Specific [place] UA 1.012 1.005 - 1.030 07/27/2023 6:46 AM [facility] pH UA 5.0 5.0 - 8.0 pH 07/27/2023 6:46 AM [facility] Protein UA Negative Negative 07/27/2023 6:46 AM [facility] Glucose UA Negative Negative 07/27/2023 6:46 AM [facility] Ketone UA Negative Negative 07/27/2023 6:46 AM [facility] Bilirubin UA Negative Negative 07/27/2023 6:46 AM [facility] Blood UA 1+(A) Negative 07/27/2023 6:46 AM [facility] Nitrite UA Positive(A) Negative 07/27/2023 6:46 AM [facility] Leukocyte Esterase Trace(A) Negative 07/27/2023 6:46 AM CDT [facility] Urobilinogen UA Negative Negative mg/dL 07/27/2023 6:46 AM CDT [facility] Urine URINE SPECIMEN OBTAINED BY CLEAN CATCH PROCEDURE / Unknown Collection / Unknown 07/27/2023 6:19 AM CDT 07/27/2023 6:29 AM CDT Narrative [facility] - 07/27/2023 6:46 AM CDT Choco Martin MD LAB - URINALYSIS ORD ERABLES Performing Organization Address [facility]/ZIP Co de Phone Number [address] [address], [facility] [phone] * PT-INR [facility] (07/26/2023 10:26 PM CDT) Only the most recent of9 resultswithin the time period is included. PT 14.2 12.1 - 14.8 Seconds 07/26/2023 10:56 PM CDT [facility] INR 1.1 See Comment 07/26/2023 10:56 PM CDT [facility] Comment:The suggested therap eutic range for standard coumadin (warfarin) therapy is an INR of 2.0-3.0. For high-risk patients (Mechanical Mitral Valve Prosthesis, etc.), the suggested prophylactic therapeutic range is an INR of 2.5-3.5. Blood BLOOD SPECIMEN / Unknown Venipuncture / Unknown 07/26/2023 10:26 PM CDT 07/26/2023 10:34 PM CDT Choco Martin MD LAB - COAGULATION OR DERABLES Performing Organization Address City/[facility]/ZIP Co de Phone Number [address] [address], [facility] [phone] * TYPE + SCREEN PANEL (07/26/2023 10:26 PM CDT) Only the most recent of2 resultswithin the time period is included. Antibody Screen NEG 11:23 PM CDT [facility] ABO Rh O POS 07/26/2023 11:23 PM T [facility] Blood Bank BLOOD SPECIMEN / Unknown Venipuncture / Unknown 07/26/2023 10:26 PM CDT 07/26/2023 10:31 PM CDT Choco Martin MD LAB - BLOOD BANK ORD ERABLES [facility] [address] [place] [address], [facility] [phone] * (ABNORMAL) CBC W AUTO DIFFERENTIAL (07/26/2023 10:26 PM CDT) Only the most recent of22 resultswithin the time period is included. WBC 10.0 4.0 - 10.7 x10E9/L 07/26/2023 10:42 PM [facility] RBC Count 4.04 3.90 - 5.20 x10E12/L 07/26/2023 10:42 PM [facility] Hemoglobin 11.7(L) 11.9 - 15.8 g/dL 07/26/2023 10:42 PM [facility] Hematocrit 36.1 34.8 - 46.1 % 07/26/2023 10:42 PM [facility] MCV 89.4 80.0 - 98.0 fL 07/26/2023 10:42 PM [facility] MCH 29.0 26.7 - 33.6 pg 07/26/2023 10:42 PM [facility] MCHC 32.4 31.7 - 36.3 g/dL 07/26/2023 10:42 PM [facility] RDW-CV 13.5 11.3 - 14.8 % 07/26/2023 10:42 PM [facility] Platelet Count 268 150 - 420 x10E9/L 07/26/2023 10:42 PM [facility] MPV 9.9 7.8 - 11.4 fL 07/26/2023 10:42 PM [facility] Neutrophil % 60.2 41.0 - 74.0 % 07/26/2023 10:42 PM CDT [facility] Lymphocyte % 28.9 17.0 - 47.0 % 07/26/2023 10:42 PM [facility] Monocyte % 7.6 3.0 - 11.0 % 07/26/2023 10:42 PM [facility] Eosinophil % 2.7 0.0 - 7.0 % 07/26/2023 10:42 PM T [facility] Basophil % 0.3 0.0 - 1.6 % 07/26/2023 10:42 PM [facility] Immature Granulocytes % 0.3 0.0 - 1.0 % 07/26/2023 10:42 PM [facility] Neutrophil Absolute 5.98 1.60 - 7.50 x10E9/L 07/26/2023 10:42 PM [facility] Lymphocyte Absolute 2.88 1.00 - 4.40 x10E9/L 07/26/2023 10:42 PM T [facility] Monocyte Absolute 0.76 0.15 - 1.00 x10E9/L 07/26/2023 10:42 PM T [facility] Eosinophil Absolute 0.27 0.00 - 0.60 x10E9/L 07/26/2023 10:42 PM T [facility] Basophil Absolute 0.03 0.00 - 0.13 x10E9/L 07/26/2023 10:42 PM [facility] Blood BLOOD SPECIMEN / Unknown Venipuncture / Unknown 07/26/2023 10:26 PM CDT 07/26/2023 10:34 PM CDT Choco Martin MD LAB - HEMATOLOGY ORD ERABLES [facility] [address] [place] [address], [facility] [phone] * (ABNORMAL) COMPREHENSIVE METABOLIC PANEL (07/26/2023 10:26 PM CDT) Only the most recent of22 resultswithin the time period is included. [facility] BUN 13 7 - 26 mg/dL 07/26/2023 11:00 PM [facility] Creatinine 0.63 0.56 - 0.96 mg/dL 07/26/2023 11:00 PM [facility] Sodium 141 136 - 145 mmol/L 07/26/2023 11:00 PM [facility] Potassium 3.9 3.5 - 4.5 mmol/L 07/26/2023 11:00 PM [facility] Chloride 104 98 - 107 mmol/L 07/26/2023 11:00 PM [facility] CO2 28 22 - 29 mmol/L 07/26/2023 11:00 PM [facility] Glucose 131(H) 70 - 115 mg/dL 07/26/2023 11:00 PM [facility] Calcium 9.5 8.4 - 10.2 mg/dL 07/26/2023 11:00 PM [facility] Protein Total 7.5 6.0 - 8.3 g/dL 07/26/2023 11:00 PM [facility] Albumin 3.1(L) 3.4 - 5.0 g/dL 07/26/2023 11:00 PM [facility] Bilirubin Total 0.5 0.2 - 1.2 mg/dL 07/26/2023 11:00 PM [facility] Alkaline Phosphatase 74 40 - 150 U/L 07/26/2023 11:00 PM [facility] ALT 19 5 - 55 U/L 07/26/2023 11:00 PM [facility] AST 17 5 - 34 U/L 07/26/2023 11:00 PM [facility] Anion Gap 9 6 - 16 07/26/2023 11:00 PM [facility] BUN/Creatinine Ratio 21 7 - 23 07/26/2023 11:00 PM [facility] Osmolality Calculated 294 275 - 295 mOsm/kg 07/26/2023 11:00 PM [facility] Albumin/Globulin Ratio 0.7(L) 1.1 - 2.3 07/26/2023 11:00 PM [facility] eGFR by CKD-EPI >90 >=90 mL/min/1.7 3 m2 07/26/2023 11:00 PM CDT [facility] Blood BLOOD SPECIMEN / Unknown Venipuncture / Unknown 07/26/2023 10:26 PM CDT 07/26/2023 10:34 PM CDT Choco Martin MD LAB - CHEMISTRY ANGEL SPEARS Performing Organization Address City/[facility]/ZIP Co de Phone Number [facility] [address] [place] [address], [place] [phone] * CARDIAC EKG ORDER (06/19/2023 1:38 PM FRENCH TEACHER) Only the most recent of6 resultswithin the time period is included. Narrative 06/19/2023 1:38 PM FRENCH TEACHER Ordered by an unspecified provider. Scanned Document CARDIAC SERVICES ORD ERABLES * TROPONIN-I HIGH SENSITIVE REFLEX 1HOUR (06/16/2023 4:44 PM FRENCH TEACHER) Only the most recent of5 resultswithin the time period is included. Troponin I High Sensitive <3 <=14 ng/L 06/16/2023 5:28 PM FRENCH TEACHER [facility] Delta Troponin I HS 06/16/2023 5:28 PM FRENCH TEACHER [facility] Comment:Result exceeds linea rity range. A delta value is unable to be calculated. Blood BLOOD SPECIMEN / Unknown Venipuncture / Unknown 06/16/2023 4:44 PM FRENCH TEACHER 06/16/2023 4:50 PM FRENCH TEACHER Roger Snowden MD LAB - CHEMISTRY ANGEL SPEARS [facility] [address] [place] [address], [place] [phone] * TROPONIN-I HIGH SENSITIVE BASELINE + 1HR (06/16/2023 3:28 PM FRENCH TEACHER) Only the most recent of5 resultswithin the time period is included. Troponin I High Sensitive <3 <=14 ng/L 06/16/2023 4:09 PM FRENCH TEACHER [facility] Blood BLOOD SPECIMEN / Unknown Venipuncture / Unknown 06/16/2023 3:28 PM FRENCH TEACHER 06/16/2023 3:37 PM FRENCH TEACHER Roger Snowden MD LAB - CHEMISTRY ANGEL SPEARS [facility] [address] [place] [address], [facility] [phone] * B-TYPE NATRIURETIC PEPTIDE (06/16/2023 3:28 PM FRENCH TEACHER) Only the most recent of2 resultswithin the time period is included. BNP 15 <100 pg/mL 06/16/2023 4:08 PM FRENCH TEACHER [facility] Comment: A decision threshold of 100 [...] Unknown Venipuncture / Unknown 06/16/2023 3:28 PM FRENCH TEACHER 06/16/2023 3:37 PM FRENCH TEACHER Roger Snowden MD LAB - CHEMISTRY ANGEL SPEARS Performing Organization Address City/State/[facility] Co de Phone Number [address] [address], [facility] [phone] * XR CHEST 1VW PORTABLE (06/16/2023 3:17 PM FRENCH TEACHER) Only the most recent of5 resultswithin the time period is included. Anatomical Region Laterality Modality Chest Radiographic Lizeth ging 06/16/2023 3:17 PM FRENCH TEACHER Narrative 06/16/2023 4:20 PM FRENCH TEACHER PROCEDURE: ??XR CHEST 1VW PORTABLE, DATE/TIME OF EXAM: ??06/16/2023 3:18 PM, LOCATION ??[facility] INDICATION: R06.02: Shortness of breath ADDITIONAL CLINICAL [...] intact. Report dictated by Ulises Sanford MD, (Electronic Technologist). I, Raquel Cedillo MD have personally reviewed and interpreted this examination/study. > Interpreting Provider: Raquel Cedillo MD on 06/16/2023 4:20 PM Procedure Note Raquel Cedillo MD - 06/16/2023 PROCEDURE: XR CHEST 1VW PORTABLE, DATE/TIME OF EXAM: 06/16/2023 3:18PM, LOCATION [facility] INDICATION: R06.02: Shortness of breath ADDITIONAL CLINICAL [...] intact. Report dictated by Ulises Sanford MD, (Electronic Technologist). I, Raquel Cedillo MD have personally reviewed and interpreted this examination/study. > Interpreting Provider: Raquel Cedillo MD on 06/16/2023 4:20 PM Roger Snowden MD DIAGNOSTIC IMAGING O RDERABLES * EKG 12-LEAD (06/16/2023 8:33 AM FRENCH TEACHER) Only the most recent of9 resultswithin the time period is included. Ventricular Rate 94 BPM [facility] Atrial Rate 94 BPM [facility]USE P-R Interval 144 ms [facility] QRS Duration ms 80 ms [facility] Q-T Interval ms 364 ms H MUSE QTC Calculation (Bezet) 455 ms [facility] MUSE Calculated P [place] 15 degrees [facility] Calculated R [place] 2 degrees [facility] Calculated T [place] 50 degrees [facility] Interpretation EKG NORMAL SINUS RHYTHM NONSPECIFIC T WAVE ABNORMALITY ABNORMAL ECG WHEN COMPARED WITH ECG OF 28-MAY-2023 16:24, NO SIGNIFICANT CHANGE WAS FOUND Confirmed by MAR ??DWAIN DURÁN ([id number]) on 06/24/2023 5:38:25 PM H MUSE 06/16/2023 8:33 AM FRENCH TEACHER 06/24/2023 5:38 PM FRENCH TEACHER Roger Snowden MD ECG ORDERABLES [facility] MUSE * EMG WITH NERVE CONDUCTION STUDY (05/31/2023 11:59 PM FRENCH TEACHER) Narrative Stanford Saldana MD - 05/31/2023 11:59 PM FRENCH TEACHER Stanford Saldana MD ? 06/05/2023 ??5:21 PM [facility] [address], [address] [place], [place] [phone] Patient: Karly Marques V #: ??Physician: Stanford Saldana MD Sex: Female ID#: [id number] Ref Phys: Melly Banks [employer] B[employer]ER [employer] SUPERINTENDENT : 1955 Date: 05/31/2023 Monotype Setter: Christin Panchal Patient Complaints: The patient is [...] 0 Nml ND Waveforms: ? Melly Banks [employer] BANKER [employer] SUPERINTENDENT NEUROLOGY ORDERA BLES * CT LUMBAR SPINE W CONTRAST (05/29/2023 12:29 AM FRENCH TEACHER) Only the most recent of4 resultswithin the time period is included. Anatomical Region Laterality Modality Spine Computed Tomogra phy 05/29/2023 9:24 AM FRENCH TEACHER Impressions 05/29/2023 9:34 AM FRENCH TEACHER IMPRESSION: 1. ??Lumbar degenerative change with neural foraminal stenosis on the right at L4-L5. 2. Chronic findings of sacroiliitis. > Interpreting Provider: Fabiola Alegre MD on 05/29/2023 9:34 AM Narrative 05/29/2023 9:34 AM FRENCH TEACHER PROCEDURE: ??CT LUMBAR SPINE W CONTRAST DATE/TIME [...] 2 OR 3 VW (05/28/2023 6:44 PM FRENCH TEACHER) Only the most recent of2 resultswithin the time period is included. Anatomical Region Laterality Modality Spine Radiographic Lizeth ging 05/29/2023 10:2 6 AM FRENCH TEACHER Impressions 05/29/2023 10:27 AM FRENCH TEACHER IMPRESSION: Lumbar degenerative change with no radiographic evidence of acute osseous abnormality of the lumbar spine. > Interpreting Provider: Fabiola Alegre MD on 05/29/2023 10:27 AM Narrative 05/29/2023 10:27 AM FRENCH TEACHER PROCEDURE: ??XR LUMBAR SPINE 2 OR 3VW [...] SPINE TRAUMA 2 VW (05/28/2023 6:44 PM FRENCH TEACHER) Anatomical Region Laterality Modality Spine Radiographic Lizeth ging 05/29/2023 10:2 5 AM FRENCH TEACHER Impressions 05/29/2023 10:26 AM FRENCH TEACHER IMPRESSION: Degenerative changes with no radiographic evidence of acute osseous abnormality of the thoracic spine. > Interpreting Provider: Fabiola Alegre MD on 05/29/2023 10:26 AM Narrative 05/29/2023 10:26 AM FRENCH TEACHER PROCEDURE: ??XR THORACIC SPINE 2VW DATE/TIME OF [...] METABOLIC PANEL (CALCIUM TOTAL) (05/16/2023 2:35 AM FRENCH TEACHER) Only the most recent of5 resultswithin the time period is included. Glucose 174(H) 70 - 105 mg/dL 05/16/2023 2:52 AM FRENCH TEACHER [facility] Sodium 140 136 - 145 mmol/L 05/16/2023 2:52 AM FRENCH TEACHER [facility] Potassium 4.1 3.5 - 5.1 mmol/L [...] Unknown Venipuncture / Unknown 05/16/2023 2:35 AM FRENCH TEACHER 05/16/2023 2:35 AM FRENCH TEACHER Mary Velasquez MD LAB - CHEMISTRY ANGEL SPEARS [facility] Organization Address City/State/ZIP Co de Phone Number [facility] [address] [place] [address] * (ABNORMAL) C-REACTIVE PROTEIN (04/17/2023 8:59 PM FRENCH TEACHER) Only the most recent of9 resultswithin the time period is included. Pathologist [facility] [place] C-Reactive Protein 2.98(H) <=0.50 mg/dL 04/17/2023 9:15 PM FRENCH TEACHER [facility] Blood BLOOD SPECIMEN / Unknown Venipuncture / Unknown 04/17/2023 8:59 PM FRENCH TEACHER 04/17/2023 8:59 PM FRENCH TEACHER Yasmin Matthew DO LAB - CHEMISTRY ORDNicholas SPEARS Performing Organization Address City/[facility]/ZIP Co de Phone Number [facility] [address] [place] [phone] * (ABNORMAL) ERYTHROCYTE SEDIMENTATION RATE (04/17/2023 8:59 PM FRENCH TEACHER) Only the most recent of9 resultswithin the time period is included. Pathologist [facility] [place] Erythrocyte Sedimentation Rate Automated 82(H) 0 - 30 MM/HR 04/17/2023 9:23 PM FRENCH TEACHER [facility] Blood BLOOD SPECIMEN / Unknown Venipuncture / Unknown 04/17/2023 8:59 PM FRENCH TEACHER 04/17/2023 8:59 PM FRENCH TEACHER Yasmin Matthew DO LAB - HEMATOLOGY ORD NEGRITA Performing Organization Address [facility] Co de Phone Number [facility] [address] [place] [phone] * PHOSPHORUS BLOOD (03/20/2023 3:55 AM FRENCH TEACHER) Only the most recent of4 resultswithin the time period is included. Phosphorus 2.9 2.9 - 5.1 mg/dL 03/20/2023 4:41 AM FRENCH TEACHER [facility] Blood BLOOD SPECIMEN / Unknown Venipuncture / Unknown 03/20/2023 3:55 AM FRENCH TEACHER 03/20/2023 4:11 AM FRENCH TEACHER Coco Harris MD LAB - CHEMISTRY ANGEL SPEARS [address] [id number], [facility] [phone] * SARS-COV-2 (COVID-19) RAPID (03/19/2023 1:50 PM FRENCH TEACHER) COVID-19 PCR Not detected Not detected 03/19/20 2:29 PM FRENCH TEACHER [facility] Microbiology SPECIMEN FROM NASOPHARYNGEAL STRUCTURE / Unknown Collection / Unknown 03/19/2023 1:50 PM FRENCH TEACHER 03/19/2023 1:55 PM FRENCH TEACHER Narrative [facility] - 03/19/2023 2:29 PM FRENCH TEACHER The [employer] Ascending Xpert Xpress SARS-COV-2 has been authorized by [...] Sisi Ricks PA-C LAB - MICROBIOLOGY ORDERABLES Performing Organization Address City/State/[facility] Co de Phone Number [address] [address], [facility] [phone] * VANCOMYCIN LEVEL TROUGH (02/22/2023 7:59 AM CDT) Only the most recent of2 resultswithin the time period is included. Vancomycin Trough 14.6 10.0 - 20.0 ug/mL 02/22/2023 10:46 AM CDT [facility] Blood BLOOD SPECIMEN / Unknown Lab Venipuncture / Unknown 02/22/2023 7:59 AM CDT 02/22/2023 9:51 AM CDT Narrative [facility] - 02/22/2023 10:46 AM CDT See institution protocol. Berenice Hawkins MD LAB - CHEMISTRY NILESNicholas REGAN Performing Organization Address [facility] Co de Phone Number [address] [address], [facility] [phone] * VANCOMYCIN LEVEL PEAK (02/22/2023 2:46 AM CDT) Vancomycin Peak 25.3 25.0 - 40.0 ug/mL 02/22/2023 3:13 AM CDT [facility] Blood BLOOD SPECIMEN / Unknown Venipuncture / Unknown 02/22/2023 2:46 AM CDT 02/22/2023 2:53 AM CDT Narrative [facility] - 02/22/2023 3:13 AM CDT See institution protocol. Data does not support the use of vancomycin peak concentration for efficacy. Berenice Hawkins MD LAB - CHEMISTRY ANGEL SPEARS Performing Organization Address [facility] de Phone Number [address] [address], [facility] [phone] * CT ABDOMEN PELVIS W CONTRAST (02/22/2023 [...] pelvis. Report drafted by Edgar Gonzales (resident) SELVIN Perez MD have personally reviewed and [...] resultswithin the time period is included. Pathologist [facility] [place] Culture No growth day 5 TERRANCE 02/26/2023 10:02 PM FRENCH TEACHER [facility] Blood PERIPHERAL BLOOD / Unknown Venipuncture / Unknown 02/21/2023 8:35 PM CDT 02/21/2023 8:38 PM CDT Berenice Hawkins MD LAB - MICROBIOLOGY O RDERABLES [facility] [address] [place] [address], [facility] [phone] * LACTIC ACID BLOOD REFLEX TO REPEAT (02/21/2023 6:30 PM CDT) Pathologist [facility] [place] Lactic Acid-Stat 1.8 <=2.0 mmol/L 02/21/2023 6:[address] [facility] Blood BLOOD SPECIMEN / Unknown Venipuncture / Unknown 02/21/2023 6:30 PM CDT 02/21/2023 6:35 PM CDT Berenice Hawkins MD LAB - CHEMISTRY ANGEL SPEARS [facility] [address] [place] [address], [place] [phone] * HEPATITIS C AB SCREEN RFLX NAAT QUANT (02/21/2023 6:30 PM CDT) Hepatitis C Antibody Non-react hugh Non-reac tive 02/21/2023 7:32 PM CDT [facility] Comment:Hepatitis C Antibody screen [...] Solitario MD LAB - CHEMISTRY ANGEL SPEARS [facility] [address] [place] [address], [facility] [phone] * CARDIAC RHYTHM STRIP ORDER (02/20/2023 5:39 [...] malacia. > Dictated by Alvarez Sanderson MD (resident medical officer). I, Vi Bell MD have personally reviewed and interpreted this examination/study. > Interpreting Provider: Vi Bell MD on 02/18/2023 8:48 AM Narrative 02/18/2023 8:48 AM CDT PROCEDURE: ??CT CHEST PE W ABD PELVIS W CONT, DATE/TIME OF EXAM: ??02/18/2023 4:04 AM, LOCATION ??[facility] INDICATION: G89.18: Post-op pain R07.9: Chest pain, [...] CONT, DATE/TIME OF EXAM:02/18/2023 4:04 AM, LOCATION [facility] INDICATION: G89.18: Post-op pain R07.9: Chest pain, [...] malacia. > Dictated by Alvarez Sanderson MD (resident medical officer). I, Vi Bell MD have personally reviewed [...] Event Date/Time: ??02/16/2023 1:21 PM Procedure: intubation ([id number]). Procedure Section: ?? Sedation: under general anesthesia. [...] ? Provider #1: Cordelia Barrientos APRN-CRNA. Dillon Zaomra DO GENERAL ANESTHESIA O RDERABLES * (ABNORMAL) PT-INR (02/16/2023 12:20 PM CDT) Only the most recent of2 resultswithin the time period is included. PT 15.0(H) 12.1 - 14.8 sec 02/16/2023 1:14 PM CDT [facility] INR 1.2(H) 0.9 - 1.1 02/16/2023 1:14 PM CD[address] [facility] Blood BLOOD SPECIMEN / Unknown Venipuncture / Unknown 02/16/2023 12:20 PM CDT 02/16/2023 12:30 PM CDT Narrative [facility] - 02/16/2023 1:14 PM CDT Conventional Warfarin Anticoagulant Therapy: INR Reference Range: ??2.0-3.0 Intensive Warfarin Anticoagulant Therapy: INR Reference Range: ? 2.5-3.5 Melly JEAN BAPTISTE LAB - COAGULATIO N ORDERABLES Performing Organization Address [facility] Co de Phone Number [facility] [address] [place] [phone] * PTT (02/06/2023 1:30 PM CDT) [facility] PTT 35.4 23.0 - 38.4 sec 02/06/2023 1:50 PM CDT [facility] Blood BLOOD SPECIMEN / Unknown Lab Venipuncture / Unknown 02/06/2023 1:30 PM CDT 02/06/2023 1:33 PM CDT Narrative [facility] - 02/06/2023 1:50 PM CDT Heparin Therapeutic Range for PTT: ??69.0 - 110.0 seconds. Maxi Gregg MD LAB - COAGULATIO N ORDERABLES Performing Organization Address [facility] Co de Phone Number [facility] [address] [place] [phone] * CT ANGIO BRAIN AND NECK (12/26/2022 [...] DATE/TIME OF EXAM: ??12/26/2022 9:43 AM, LOCATION ??[facility] INDICATION: R51.9: Acute intractable headache, unspecified headache [...] NECK, DATE/TIME OF EXAM: 12/26/2022 9:43AM, LOCATION [facility] INDICATION: R51.9: Acute intractable headache, unspecified headache [...] 8.6(H) <=5.6 % 12/25/2022 2:47 PM CDT [facility] Estimated Average Glucose 200 mg/dL 12/25/2022 2:47 PM CDT [facility] Comment: HbA1c Interpretation: Normal : < 5.7% Pre-diabetes: 5.7-6.4% Diabetes: Equal to or greater than 6.5% Test results diagnostic of diabetes should be repeated for confirmation. Treatment target values recommended by ADA and other clinical organizations should be used to evaluate metabolic control in patients. Reference: [place] [employer], Standards of Care in Diabetes [...] Rodriguez MD LAB - CHEMISTR Y ORDERABLES [facility] [address] [place] [address], [facility] [phone] * WA CYSTOURETHROSCOPY (06/08/2022 2:18 PM FRENCH TEACHER) Narrative Opal Orellana APRN-CNP - 06/08/2022 2:18 PM FRENCH TEACHER Opal Orellana APRN-CNP ? 06/09/2022 ??9:33 AM [...] POCT - Ketones UA POCT - Specific [place] UA 1.030 Blood Urine POCT 1+ pH UA 5.5 Protein UA +- Urobilinogen UA - Nitrite UA - WBC UA - Urine URINE / Unknown 06/08/2022 Opal SANTIAGOPOLICE SUPERINTENDENT LAB - POINT O F CARE ORDERABLES * WA MSR PVR U&/BLADD CAPCTY US NON (04/27/2022 1:24 PM FRENCH TEACHER) Narrative Brigitte Gee MA - 04/27/2022 1:24 PM FRENCH TEACHER Brigitte Gee MA ? 04/27/2022 ??1:24 PM Bladder scan completed. 38ml post void residual. Opal JEAN BAPTISTE PROCEDURE/MIN OR SURGICAL ORDERABLES * PROC ENDOSCOPY-LARYNX (12/14/2021 8:58 AM CDT) Narrative David Cuevas MD - 12/14/2021 8:58 AM CDT David Cuevas MD ? 12/14/2021 ??9:28 AM Procedure Note Anesthesia: Lidocaine 2% and Nadir-Synephrine 1/2% Endoscopy Type: ??Flexible Walkd-Ihtqcuvxyurefz-Oyvamqxdxedg Procedure Details: Informed consent was obtained. ??The [...] Yellow Straw, Yellow 12/06/2021 3:05 PM CDT [facility] Clarity UA Clear Clear 12/06/2021 3:05 PM CDT [facility] Specific [place] UA 1.016 1.005 - 1.030 12/06/2021 3:05 PM CDT [facility] pH UA 5.0 5.0 - 8.0 pH 12/06/2021 3:05 PM CDT [facility] Protein UA Negative Negative 12/06/2021 3:05 PM CDT [facility] Glucose UA 1+(A) Negative 12/06/2021 3:05 PM [facility] Ketone UA Negative Negative 12/06/2021 3:05 PM [facility] Bilirubin UA Negative Negative 12/06/2021 3:05 PM [facility] Blood UA 1+(A) Negative 12/06/2021 3:05 PM [facility] Nitrite UA Negative Negative 12/06/2021 3:05 PM [facility] Leukocyte Esterase Negative Negative 12/06/2021 3:05 PM [facility] Urobilinogen UA Negative Negative mg/dL 12/06/2021 3:05 PM [facility] RBC UA 0-2 None Seen, 0-2, 3-5 /HPF 12/06/2021 3:05 PM [facility] WBC UA 0-5 None Seen, 0-5 /HPF 12/06/2021 3:05 PM [facility] Squamous Epithelial Cells UA None Seen None Seen, 0-2, 3-5 /HPF 12/06/2021 3:05 PM [facility] Mucus UA 1+ /LPF 12/06/2021 3:05 PM [facility] Urine URINE SPECIMEN OBTAINED BY CLEAN CATCH PROCEDURE / Unknown Collection / Unknown 12/06/2021 1:29 PM CDT 12/06/2021 2:47 PM CDT Narrative [facility] - 12/06/2021 3:05 PM CDT Culture Not Indicated Jazmyne Torres MD LAB - URI NALYSIS ORDERABLES [facility] [address] [place] [address], [facility] [phone] * XR HUMERUS RIGHT 2VW OR MORE (12/02/2021 3:30 PM CDT) Anatomical Region Laterality Modality Upper Extremity Radiographic Lizeth ging 12/02/2021 3:30 PM CDT Narrative 12/02/2021 3:46 PM CDT PROCEDURE: ??XR HUMERUS RIGHT 2VW, DATE/TIME OF EXAM: ??12/02/2021 3:31 PM, LOCATION ??[facility] INDICATION: T82.9XXA: Central line complication, initial encounter [...] dislocation. Report dictated by Miracle Moody MD (resident medical officer). Raquel Perez MD have personally reviewed and interpreted this examination/study. > Interpreting Provider: Raquel Cedillo MD on 12/02/2021 3:46 PM Procedure Note Raquel Cedillo MD - 12/02/2021 PROCEDURE: XR HUMERUS RIGHT 2VW, DATE/TIME OF EXAM: 12/02/2021 3:31 PM, LOCATION [facility] INDICATION: T82.9XXA: Central line complication, initial encounter [...] dislocation. Report dictated by Miracle Moody MD (resident medical officer). Raquel Perez MD have personally reviewed and interpreted this examination/study. > Interpreting Provider: Raquel Cedillo MD on 12/02/2021 3:46 PM Hannah Martínez PA-C DIAGNOSTIC IMAGING O RDERABLES * LIPASE BLOOD (12/02/2021 12:31 PM CDT) Only the most recent of2 resultswithin the time period is included. Lipase 19 8 - 78 U/L 12/02/2021 1:25 PM CDT [facility] Blood BLOOD SPECIMEN / Unknown Venipuncture / Unknown 12/02/2021 12:31 PM CDT 12/02/2021 12:59 PM CDT Aaron Matias PA-C LAB - CHEMISTRY ANGEL SPEARS Performing Organization Address [facility]/ZIP Co de Phone Number [address] [address], [facility] [phone] * (ABNORMAL) PTT [facility] (11/13/2021 1:07 AM CDT) Only the most recent of7 resultswithin the time period is included. APTT 77.2(H) 23.0 - 38.4 Seconds 11/13/2021 1:33 AM CDT [facility] Comment:Suggested therapeuti c range for full dose I.V. unfractionated heparin therapy for venous thromboembolism is 71 to 109 seconds. Blood BLOOD SPECIMEN / Unknown Venipuncture / Unknown 11/13/2021 1:07 AM CDT 11/13/2021 1:11 AM CDT Tima Cardenas MD LAB - COAGULATI ON ORDERABLES Performing Organization Address [facility]/ZIP Co de Phone Number [address] [address], [facility] [phone] * ECHO COMPLETE (11/12/2021 4:10 PM CDT) Anatomical Region Laterality Modality Chest Echo 11/12/2021 3:25 PM CDT Narrative Procedure Note Tamika Cowan MD - 11/12/2021 Aly Perkins III, MD ECHOCARDIOGRAPHY RADIANT * (ABNORMAL) PROCALCITONIN LEVEL (11/12/2021 12:33 PM CDT) PROCALCITONIN 0.20(H) <=0.10 ng/mL 11/12/2021 3:30 PM CDT [facility] Blood BLOOD SPECIMEN / Unknown Venipuncture / Unknown 11/12/2021 12:33 PM CDT 11/12/2021 12:42 PM CDT Narrative [facility] - 11/12/2021 3:30 PM CDT The [...] Change in Procalcitonin Calculator is available at [email or web address] ?? If clinical picture has not improved and PCT remains high, reevaluate and consider treatment failure or other causes. Aly Perkins III, MD LAB - CHEMISTRY O RDERABLES [facility] [address] [place] [address], [facility] [phone] * VAS RIGHT VENOUS DUPLEX UE (11/12/2021 [...] confirmation. Report drafted by Amador Lopez (resident) Dr. VI Perez have personally reviewed and interpreted this examination/study. This report was electronically signed by VI BELL on 11/12/2021 8:59AM . Roger Snowden MD CT ORDERABLES * TROPONIN I (11/11/2021 10:38 PM CDT) Only the most recent of2 resultswithin the time period is included. Troponin I <0.010 <0.032 ng/mL 11/11/2021 11:06 PM CDT [facility] Blood BLOOD SPECIMEN / Unknown Venipuncture / Unknown 11/11/2021 10:38 PM CDT 11/11/2021 10:43 PM CDT Sisi Ricks PA-C LAB - CHEMISTRY OR DERABLES Performing Organization Address City/State/[facility] Co de Phone Number [address] [address], [facility] [phone] * XR CHEST 2VW (11/11/2021 5:26 PM [...] Report dictated by David Charlton MD, PhD (resident medical officer). IDr. VI have personally reviewed and interpreted this examination/study. This report was electronically signed by VI BELL ??on 11/11/2021 11:57 PM . Narrative 11/11/2021 11:57 PM CDT EXAMINATION: XR CHEST 2VW, 11/11/2021 5:26 PM HISTORY: R07.9: Chest pain, unspecified type R06.02: SOB (shortness of breath) COMPARISON: Chest radiograph from 10/30/2021. Procedure Note Vi Blel MD - 11/12/2021 EXAMINATION: XR CHEST 2VW, [...] Report dictated by David Charlton MD, PhD (resident medical officer). I, Dr. VI BELL have personally reviewed [...] Impression: Successful placement of 39 cm 5 Togolese dual-lumen power PICC via the right basilic vein with the tip at the cavo-atrial junction. Note: The catheter can be used now. Dr. iFtzgerald was present and performed/supervised the entire procedure. Dictated by Jovi Goode MD (resident medical officer) This report was approved ??by Jovi Goode ?? on 11/05/2021 3:06 PM . I, Dr. BAUDILIO FITZGERALD have personally reviewed and interpreted this examination/study. This report was electronically signed by BAUDILIO FITZGERALD ??on 11/12/2021 12:02 PM . Narrative 11/12/2021 12:02 PM CDT History: 66 year old female with postoperative infection requiring terminal block assembler antibiotics. Operators: 1.Dr. Baudilio Fitzgerald, Attending Physician [...] old female with postoperative infection requiring terminal block assembler antibiotics. Operators: 1.Dr. Baudilio Fitzgerald, Attending Physician [...] Impression: Successful placement of 39 cm 5 Togolese dual-lumen power PICC via the right basilic vein with the tip at the cavo-atrial junction. Note: The catheter can be used now. Dr. Fitzgerald was present and performed/supervised the entireprocedure. Dictated by Jovi Goode MD (resident medical officer) This report was approved by Jovi Goode on 11/05/2021 3:06 PM . I, Dr. BAUDILIO FITZGERALD have personally reviewed and interpreted this examination/study. This report was electronically signed by BAUDILIO FITZGERALD on11/12/2021 12:02 PM . Maxi Gregg MD IR ORDERABLES * (ABNORMAL) D-DIMER (11/05/2021 1:50 PM CDT) D-Dimer Quantitative 1.28(H) <=0.50 mcg/mL FEU 11/05/2021 2:26 PM CDT [facility] Comment: In the absence [...] Gregg MD LAB - COAGULATIO N ORDERABLES [facility] [address] [address], [facility] [phone] * CULTURE FUNGUS OTHER+FUNGUS SMEAR (10/30/2021 4:51 PM CDT) Culture No fungus isolated TERRANCE 11/29/2021 12:06 PM CDT [facility] Fungus Stain No yeast or hyphae seen 11/29/2021 12:06 PM CDT [facility] Microbiology SPECIMEN FROM WOUND / Unknown Collection / Unknown 10/30/2021 4:51 PM CDT 10/30/2021 5:24 PM CDT Maxi Gregg MD LAB - MICROBIOLO GY ORDERABLES [facility] [address] [place] [address], [facility] [phone] * (ABNORMAL) CULTURE FLUID+GRAM STAIN (10/30/2021 4:51 PM CDT) Culture Heavy Escherichia coli(AA) TERRANCE 11/03/2021 12:18 AM CDT [facility] Comment:Strain 1 Culture Heavy Escherichia coli(AA) TERRANCE 11/03/2021 12:18 AM CDT [facility] Comment:Strain 2 Gram Stain Heavy Polymorphonuclear cells(AA) 11/03/2021 12:18 AM CDT [facility] Gram Stain Light Gram-negative bacilli(AA) 11/03/2021 12:18 AM CDT [facility] Fluid BODY FLUID SPECIMEN / [...] Gregg MD LAB - MICROBIOLO GY ORDERABLES [facility] [address] [facility] [place] [address] [phone] * CULTURE ANAEROBE (10/30/2021 4:51 PM CDT) Culture No anaerobic organisms isolated TERRANCE 11/04/2021 11:12 AM CDT [facility] Microbiology SPECIMEN FROM WOUND / Unknown Collection / Unknown 10/30/2021 4:51 PM CDT 10/30/2021 5:24 PM CDT Maxi Gregg MD LAB - MICROBIOLO GY ORDERABLES [facility] [address] [place] [address], [facility] [phone] * ETT LINE PERFORMABLE (10/30/2021 4:22 PM CDT) Narrative Lyubov Umanzor MD - 10/30/2021 4:22 PM CDT Lyubov Umanzor MD ? 10/30/2021 ??4:22 PM Endotracheal Tube Placement: ? Patient Location: OR. Intubation Event Date/Time: ??10/30/2021 3:59 PM Procedure: intubation ([id number]). Procedure Section: ?? Sedation: IV sedation. Indications [...] O POS 10/30/2021 2:2 7 PM CDT [facility] Blood Bank BLOOD SPECIMEN / Unknown 10/30/2021 11:31 AM CDT 10/30/2021 1:58 PM CDT Della Sagastume MD LAB - BLOOD BANK ORD ANNEBLES [facility] [address] [place] [address], [facility] [phone] * FL GIANFRANCO SURGERY (09/16/2021 9:30 AM CDT) Narrative [facility] - 09/16/2021 2:19 PM CDT For details of this study, please see the providers note. Maxi Gregg MD FLUOROSCOPY ANGEL SPEARS Performing Organization Address City/[facility]/ZIP Co de Phone Number [facility] [address] [place] [address] * ETT LINE PERFORMABLE (09/16/2021 8:19 AM CDT) Narrative Mary Rinaldi APRN-CRNA - 09/16/2021 8:19 AM CDT Mary Rinaldi APRN-CRNA ? 09/16/2021 ??8:20 AM Endotracheal Tube Placement: ? Patient Location: OR. Intubation Event Date/Time: ??09/16/2021 7:45 AM Procedure: intubation ([id number]). Procedure Section: ?? Sedation: under general anesthesia. [...] URINALYSIS W/MICROSCOPIC NO CULTURE (04/20/2017 1:25 AM FRENCH TEACHER) Only the most recent of2 resultswithin the time period is included. Color UA Yellow Straw, Yellow, Colorless, Light Yellow [facility] Clarity UA Clear Clear [facility] Specific [place] UA 1.020 1.001 - 1.030 [facility] pH UA 5.5 5.0 - 8.0 [facility] Protein UA Negative <=20 mg/dL [facility] Glucose UA Negative Negative mg/dL [facility] Ketone UA Negative Negative mg/dL [facility] Bilirubin UA Negative Negative mg/dL [facility] Blood UA Small(A) Negative [facility] Nitrite UA Negative Negative [facility] Leukocyte Esterase Moderate(A) Negative [facility] Urobilinogen UA <2.0 <2.0 mg/dL [facility] RBC UA 4 0 - 8 /HPF [facility] WBC UA 13(H) 0 - 2 /HPF [facility] Bacteria UA Rare Rare, Occasional, None /HPF [facility] Squamous Epithelial Cells UA 1 0 - 1 /HPF [facility] Mucus UA Moderate(A) None /LPF [facility] Urine specimen (specimen) 04/20/2017 1:25 AM FRENCH TEACHER 04/20/2017 1:30 AM FRENCH TEACHER Epi Solitario MD LAB - URINALYSIS ORD ERABLES [address] [phone] * LAMBDA LIGHT CHAINS FREE (01/27/2012 11:57 AM CDT) Immunoglobulin Lambda Free Light Chain 16.0 5.7 - 26.3 mg/L [facility] 01/27/2012 11:5 7 AM CDT 01/27/2012 12:42 PM CDT Noe Griffiths MD LAB - CHEMISTRY ANGEL SPEARS [address] [phone] * PROTEIN ELECTROPHORESIS WO INTERP BLOOD (01/27/2012 [...] by calling the Special Chemistry Laboratory at [phone]. ?Marce Jerez, Ph.D. Protein Total 7.4 6.0 [...] Griffiths MD LAB - CHEMISTRY ANGEL SPEARS [address] [phone] * HONEY BLOOD SCREEN (01/27/2012 11:57 AM CDT) HONEY NONE DETECTED NONE DETECT [facility] 01/27/2012 11:5 7 AM CDT 01/27/2012 12:42 PM CDT Noe Griffiths MD LAB - CHEMISTRY ANGEL SPEARS Performing Organization Address [facility] Co de Phone Number [address] [phone] * IMMUNOFIXATION (01/27/2012 11:57 AM CDT) Immunofixation [...] CHEMISTRY ANGEL SPEARS Performing Organization Address [facility] Co de Phone Number [address] [phone] * TRANSFERRIN (01/27/2012 11:57 AM CDT) [facility] Transferrin 266 174 - 382 mg/dL [facility] Transferrin Saturation % 24 16 - 50 % [facility] 01/27/2012 11:5 7 AM CDT 01/27/2012 12:42 PM CDT Noe Griffiths MD LAB - CHEMISTRY ANGEL SPEARS Performing Organization Address [facility] Co de Phone Number [address] [phone] * (ABNORMAL) T3 FREE (01/27/2012 11:57 AM CDT) [facility] T3 Free 4.0(H) 1.7 - 3.7 pg/mL [facility] 01/27/2012 11:5 7 AM CDT 01/27/2012 12:42 PM CDT Noe Griffiths MD LAB - CHEMISTRY ANGEL SPEARS Performing Organization Address [facility] Co de Phone Number [address] [phone] * KAPPA/LAMBDA LITE CHAIN FREE PANEL (01/27/2012 11:57 AM CDT) Free Viburnum Quantitative 15.8 3.3 - 19.4 mg/L [facility] Free Viburnum/Lambda Ratio 0.99 0.26 - 1.65 [facility] Interpretation Free Lite SEE NOTE [facility] [...] CHEMISTRY ANGEL SPEARS Performing Organization Address [facility]/ZIP Co de Phone Number [address] [phone] * RETIC COUNT (01/27/2012 11:57 AM CDT) Reticulocyte % 1.7 0.3 - 2.0 % [facility] Reticulocyte Absolute 0.08 0.02 - 0.10 # [facility] 01/27/2012 11:5 7 AM CDT 01/27/2012 12:42 PM CDT Noe Griffiths MD LAB - HEMATOLOGY NILES REES [address] [phone] * LDH BLOOD (01/27/2012 11:57 AM CDT) LDH Total 201 125 - 243 Units/L [facility] 01/27/2012 11:5 7 AM CDT 01/27/2012 12:42 PM CDT Noe Griffiths MD LAB - CHEMISTRY ANGEL SPEARS Performing Organization Address City/[facility]/ZIP Co de Phone Number [address] [phone] * IRON BLOOD (01/27/2012 11:57 AM CDT) Iron 81 40 - 150 mcg/dL [facility] 01/27/2012 11:5 7 AM CDT 01/27/2012 12:42 PM CDT Noe Griffiths MD LAB - CHEMISTRY [facility] [address] [phone] * CK BLOOD (01/27/2012 11:57 AM CDT) CK Total 85 30 - 200 Units/L [facility] 01/27/2012 11:5 7 AM CDT 01/27/2012 12:42 PM CDT Noe Griffiths MD LAB - CHEMISTRY [facility] [address] [phone] * (ABNORMAL) TSH (01/27/2012 11:57 AM CDT) TSH 0.103(L) 0.350 - 4.940 uIU/mL [facility] 01/27/2012 11:5 7 AM CDT 01/27/2012 12:42 PM CDT Noe Griffiths MD LAB - CHEMISTRY ANGEL SPEARS Performing Organization Address City/[facility] Co de Phone Number [address] [phone] * T4 FREE (01/27/2012 11:57 AM CDT) T4 Free 1.0 0.7 - 1.5 ng/dL [facility] 01/27/2012 11:5 7 AM CDT 01/27/2012 12:42 PM CDT Noe Griffiths MD LAB - CHEMISTRY ANGEL SPEARS Performing Organization Address [facility] Co de Phone Number [address] [phone] * (ABNORMAL) T3 TOTAL (01/27/2012 11:57 AM CDT) T3 Total 167(H) 58 - 159 ng/dL [facility] 01/27/2012 11:5 7 AM CDT 01/27/2012 12:42 PM CDT Noe Griffiths MD LAB - CHEMISTRY ANGEL SPEARS Performing Organization Address City/[facility] Co de Phone Number [address] [phone] * FERRITIN (01/27/2012 11:57 AM CDT) Ferritin 105 13 - 204 ng/mL [facility] 01/27/2012 11:5 7 AM CDT 01/27/2012 12:42 PM CDT Noe Griffiths MD LAB - CHEMISTRY ANGEL SPEARS Performing Organization Address City/[facility]/ZIP Co de Phone Number [facility] [address] [phone] * MRI LUMBAR SPINE WO CONTRAST (12/16/2011 [...] the time period is included. 12/08/2011 Narrative [facility] - 12/08/2011 3:03 PM CDT Historical Provider LAB - CHEMISTRY O RDERABLES Performing Organization Address City/State/[facility] Co de Phone Number [facility] [address] Care Teams Labor Relations Specialist Relationship Specialty Start Date End Date Justen Gale MD PCP - General 07/05/21
--- OUTSIDE RECORDS SUMMARY | 2024-05-16 20:41 | XMS_ITS | Encounter Summary ---
Author Organization [facility] Address [address] [place] [address] Phone Care Team Providers Care Aircraft Ordnance Systems Mechanic Name Role Phone Justen Gale MD Primary Care Provider [phone] David Roberts APRN, RAIL MAINTENANCE WORKER Unavailable [phone] Annel Rod MD Unavailable Reason for Visit * Reason Comments Medication Refill Encounter Details Date Type Department Care Team (Late st Contact Info) Description 03/02/2023 Refill [facility] - Family Medicine [facility] #2 [place] [address] Justen Gale MD #[address] [address] Medication Refill Social History Tobacco Use Types [...] Tamika Villarreal RN - 03/02/2023 8:51 AM LAP LAYER Medication failed the protocol, provider to review [...] Dept 01/17/23 Office Visit Catrina Quiñonez MD [facility] 09/16/22 Office Visit Pili Elkins APRN, NETTA [facility] 07/05/22 Office Visit Pili Elkins APRN, NETTA [facility] 05/02/22 Office Visit Justen Gale MD [facility] 03/03/22 Office Visit Pili Elkins APRN, NETTA [facility] Showing recent visits within past 365 days and meeting all other requirements Future Appointments No visits were found meeting these conditions. Showing future appointments within next 90 days and meeting all other requirements LAYER documented in this encounter Plan of Treatment Upcoming Encounters Date Type Department Care Team (Late st Contact Info) Description 06/25/2024 2:45 PM LAP LAYER Office Visit [facility] - Endocrinology - [place] [address] [place] [address] Annel Rod MD [address] [address] 06/28/2024 1:15 PM LAP LAYER Office Visit [facility] - Endocrinology - [place] [address] [place] [address] Annel Rod MD [address]2 [place] [facility] [address] [place] [address] documented as of this encounter Visit Diagnoses Not on filedocumented in this encounter Additional Health Concerns Assessment Noted Time PHQ-9 Depression Total Score: 8 01/18/20 23 2:24 PM CDT documented as of this encounter Care Teams Aircraft Ordnance Systems Mechanic Relationship Specialty Start Date End Date Justen Gale MD [address] [place] [facility] [address] [place] [address] PCP - General Family Medicine 10/17/17 David Roberts, INSULATION BOARD COATER OPERATOR, RAIL MAINTENANCE WORKER [address] [place] [address] Nurse Practitioner Advanced Practice Nurse 01/31/22 Annel Rod MD [address] [address] Consulting Physician Endocrinology 07/01/22 documented as of this encounter
--- OUTSIDE RECORDS SUMMARY | 2024-05-16 20:41 | XMS_ITS | CONTINUITY OF CARE DOCUMENT ---
Author Name ayesha, ayesha Address Unknown Organization [facility] Address [address] [place] [address] Phone [phone] Care Team Providers Care Turret Press Operator Name Role Phone Yamilet DURÁN, Maico Unavailable ALANIS DURÁN, BRIDGETT Unavailable ALLISON DURÁN, CLARISSE Unavailable PROBLEMS Condition Status Date Provider Notes Shortness of breath active Ivory Rodriguez Palpitations active Radha Seals INSURANCE PROVIDERS Payer name Policy type / Coverage type [place] red alliance party ID UHC MEDICARE COMPLETE HMO Other [id number] [facility] Medicaid 2 [id number] HISTORY OF PROCEDURES Procedure Date Procedure Name Provider Procedure Notes S tatus Stress EKG Carmine Silverio MD complet ed Regadenoson, 4 units Sergey Saldana MD completed Cardiolite, 2 units Sergey Saldana MD completed SPECT Images Carmine Silverio MD compl eted Holter, 24 or 48 Maico Woodard MD co mpleted
--- OUTSIDE RECORDS SUMMARY | 2024-05-16 20:41 | XMS_ITS | Encounter Summary ---
Author Organization [facility] Address [address] [place] [address] Phone Care Team Providers Care Office Services Clerk Name Role Phone Justen Gale MD Primary Care Provider [phone] David Roberts APRN, CREATIVE RESOURCE MANAGER Unavailable [phone] Annel Rod MD Unavailable Reason for Visit * Reason Comments Medication Refill Encounter Details Date Type Department Care Team (Late st Contact Info) Description 03/05/2023 Refill [facility] - Family Medicine [facility] #2 [place] [address] Pili Elkins APRN, CREATIVE RESOURCE MANAGER #[address] [address] Medication Refill Social History Tobacco [...] discontinued on 10/19/2022 by Justen Gale MD O TALK SHOW HOST documented in this encounter Plan of Treatment Upcoming Encounters Date Type Department Care Team (Late st Contact Info) Description 06/25/2024 2:45 PM RADIO TALK SHOW HOST Office Visit [facility] - Endocrinology - [place] #2 [place] [address] Annel Rod MD #[address] [address] 06/28/2024 1:15 PM RADIO TALK SHOW HOST Office Visit [facility] Endocrinology - [place] #2 [place] [address] Annel Rod MD #[address] [address] documented as of this encounter Visit Diagnoses Diagnosis Essential hypertension Unspecified essential hypertension documented in this encounter Additional Health Concerns Assessment Noted Time PHQ-9 Depression Total Score: 8 01/18/20 23 2:24 PM CDT documented as of this encounter Care Teams Office Services Clerk Relationship Specialty Start Date End Date Justen Gale MD #[address] [address] PCP - General Family Medicine 10/17/17 David Roberts APRN, NETTA #2 [place] [address] Nurse Practitioner Advanced Practice Nurse 01/31/22 Annel Rod MD [address] [address] Consulting Physician Endocrinology 07/01/22 documented as of this encounter
--- OUTSIDE RECORDS SUMMARY | 2024-05-16 20:41 | XMS_ITS | Clinical Summary ---
Author Organization [facility] Address [address] [place] [address]. [place] [address] [place] [address] Care Team Providers Care Test Center Administrator Name Role Phone Meena Bansal MD Unavailable [phone] Justen Gale MD Primary Care Provider [phone] Allergies Active Allergy Reactions Criticality Noted Date [...] reflux disease 09/05/2020 Malignant tumor of breast ([facility]/H[facility]) 08/22 Knee pain 09/05/2020 Other [...] (BMI) of 50.0 to 59.9 in adult ([facility]) 11/15/2018 Abdominal pain 09/09/2018 Diverticulosis [...] left inferior nodule. ACS (acute coronary syndrome) ([facility]) 03/18/2018 Assessment & Plan (03/18/2018 2:55 AM FOOD SERVICE CASHIER): Acute, patient reported as epigastric pain however may be atypical presentation. Troponins negative x2. Also in differential is GERD, PUD - Admit to observation -Follow-up troponins -Monitor vitals -N.p.o. at midnight - Stress echo in a.m. - Consider cardiology consult based on results of stress test -Begin Protonix Epigastric pain 03/18/2018 Assessment & Plan (03/18/2018 5:39 AM FOOD SERVICE CASHIER): Acute, non radiating, worsens with lying down, [...] Speech impairment 01/30/2018 CVA (cerebral vascular accident) ([facility]/ C) 01/24/2018 Neck pain on right side 12/01/2017 Anxiety and depression 11/12/2017 Chronic anticoagulation 11/09/2017 Constipation 11/09/2017 Uncontrolled type 2 diabetes mellitus with hyperglycemia, with long-term current use of insulin ([facility]) 11/06/2017 custodial (current) use 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 inhibitors 10/23/2017 Lumbosacral [...] upper- 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 ([facility]) 10/17/2017 Assessment & Plan (08/31/2018 12:24 AM CDT): S/p masectomy. -continue exemestane Acute deep vein thrombosis ( DVT) of proximal vein of right lower extremity ([facility]) 10/17/2017 Dysuria 10/17/2017 Hyperthyroidism 10/17/2017 Cancer of overlapping sites of left female breast ([facility]) 10/13/2017 Syncope 09/29/2017 High blood pressure 08/22/2017 Overview (09/05/2020): Last Assessment & Plan: On lisinopril Last Assessment & Plan: On lisinopril Assessment & Plan (08/30/2018 9:57 PM CDT): Chronic. Controlled. -continue home medications Assessment & Plan (03/18/2018 2:51 AM FOOD SERVICE CASHIER): Chronic, BPs currently 127/78 - To new home meds Morbid obesity with BMI of 5 0.0-59.9, adult ([facility]) 08/22/2017 Sepsis ([facility]) 08/22/2017 Type 2 diabetes mellitus ([facility]) 08/22 Overview (09/05/2020): Last Assessment & Plan: Hold janument. Start on SSI and accucheks Assessment & Plan (08/30/2018 10:01 PM CDT): Chronic. Controlled. -continue home insulin regimen of lantus 50 units q am -lispro 20 units with breakfast and lunch. 22 units with dinner. Assessment & Plan (03/18/2018 2:53 AM FOOD SERVICE CASHIER): Chronic, patient reports medical compliance with 50 units of Lantus daily and 15 units of Humalog before meals. No recent HbA1c - Monitor POC glucose -[place] home regimen - Consider sliding scale insulin -Follow-up HbA1c Bronchitis 08/20/2017 LUL (obstructive sleep apnea) 08/01/2017 Assessment & Plan (03/18/2018 2:54 AM FOOD SERVICE CASHIER): Chronic, on CPAP at home - Continue home CPAP History of DVT (deep vein thrombosis) 08/01/2017 Assessment & Plan (03/18/2018 2:54 AM FOOD SERVICE CASHIER): Chronic - Continue home Xarelto Chest pressure 08/01/2017 Diet-controlled diabetes mellitus ([facility] HHS/H CC) 08/01/2017 History of pulmonary embolism 08/01/2017 Hyponatremia 08/01/2017 Positive blood culture 08/01/2017 Acute pharyngitis 07/27/2017 Generalized weakness 07/27/2017 Nausea and vomiting 07/26/2017 Overview (09/05/2020): Overview: Overview: Added automatically from request for surgery [id number] Overview: Added automatically from request for surgery [id number] Added automatically from request for surgery [id number] Neuropathy 07/05/2017 History of breast cancer 02/06/2017 Pulmonary embolism ([facility] HHS/HCC) 08/09/2016 Overview (09/05/2020): Last [...] syndrome Assessment & Plan (03/18/2018 2:54 AM FOOD SERVICE CASHIER): Chronic -Continue home ropinirole Pain of lower [...] drink = 0.6 oz pur e alcohol) [facility] Utilities Answer Date Recorded In the past 12 months has e electric, gas, oil, or water [employer] threatened to shut off services in your [...] any time in the past 12 m [facility], were you homeless or living in a penitentiary (including now)? No 10/13/2023 Comments No Sex and Gender Information Value Date Recorded Sex Assigned at Female 09/06/2020 12:50 AM CDT Legal Sex Female 10:47 AM CDT Gender Identity Female 09/06/2020 12:50 AM CDT Sexual Orientation Straight 03/18/2018 3: 01 AM FOOD SERVICE CASHIER Last Filed Vital Signs Vital Sign Reading [...] 8.0(H) <5.7 % 10/14/2023 5:50 AM CDT [facility] Comment: ADA GUIDELINES 2010 5.7 TO 6.4% INCREASED RISK OF DIABETES > OR = 6.5% CONSISTENT WITH DIABETES ESTIMATED AVG GLUCOSE 183 mg/dL 10/14/2023 5:50 AM CDT [facility] 10/14/2023 3:40 AM CDT us Peggy Bland MD LABORATORY Final Result [facility] [address] [place] [address], * LIPID PANEL (10/14/2023 3:40 AM CDT) CHOLESTEROL 164 <200 MG/DL 10/14/2023 4:31 AM CDT [facility] TRIGLYCERIDES 114 <150 MG/DL 10/14/2023 4:31 AM CDT [facility] HDL 46 >40.0 MG/DL 10/14/2023 4:31 AM CDT [facility] LDL (CALCULATED) 95 <100 MG/DL 10/14/19 4:31 AM CDT [facility] NON HDL CHOLESTEROL 118 <130 MG/DL 10/13 4:31 AM T [facility] CHOL/HDL RATIO 3.6 0.0 - 4.5 10/14/2023 4:31 AM CDT [facility] VLDL CALCULATION 23 5 - 55 MG/DL 10/14/2023 4:31 AM CDT [facility] LIPID INTERPRETATION 10/14/2023 4:31 AM CDT [facility] Comment: NIH CONCENSUS REPORT RECOMMENDATIONS: ?ADULT [...] us Peggy Bland MD LABORATORY Final Result [facility] [address] [place] [address], from Last 3 Months or Most Recently Relevant to Health Maintenance Insurance MEDICAID Member Subscriber Plan / Payer (Ef fective 2017-Present) Name:Mohsen Salazar Relation to Subscriber:Self Name:Mohsen Salazar Payer ID:Not on file Group ID:Not on file Type:Not on file Address: [address] Advance Directives * Full Code (Latest [...] 2:42 AM 03/18/2018 4:50 PM Care Teams Test Center Administrator Relationship Specialty Start Date End Date Justen Gale MD [address] [facility] [address] [place] [address] PCP - General FAMILY PRACTICE 08/20/17 Meena Bansal MD [address] [facility] [address] [place] [address] Boron Cheese Blender CARDIOVASCULAR DISEASE 04/24/16
--- OUTSIDE RECORDS SUMMARY | 2024-05-16 20:41 | XMS_ITS | Referral Summary ---
Author Organization [facility] [place] Address [address] [place] [address] Care Team Providers Care Corrosion Engineer Name Role Phone Justen Gale MD Primary Care Provider [phone] Source Comments [facility] [place],[facility] Affiliates and Associated Physician Practices is amultiple site organization consisting of ambulatory clinics and hospital sitesin [place], [place], [place] and [place]. This disclosure is being madepursuant to the Care Everywhere program and may not contain all information available regarding this patient. Last updated 18.[facility] [place] Encounters Date Type Department Care Team Description 03/08/2024 Orders Only [facility] - Urology [address] [place] [address] Caroline Sultana RN from Last 3 Months Allergies Active Allergy [...] Gluc Sensor (FreeStyle Eileen 2 Sensor Systm) [facility] [place] 1 SENSOR AND WEAR FOR 14 [...] IIV3 SPLIT I M (FLUVIRIN) 01/23/2016,03/07/2014,05/07/2013 INFLUENZA VACCINE 01/17/2023 INFLUENZA VACCINE, ADJUVANTE D, QUADR. (FLUAD [...] medical care, and heating? Somewhat hard 05/16/2023 [facility] [place] [facility] - Occupational [...] on file Medical Devices Implanted Type Area Reliner Device Identifier Shelf Expiration Date Model / Serial / Lot Lead Nrstm 60cm Penta 3mm Pdl 16 Chnl Implanted:Qt y: 1 on 09/16/2021 by Maxi Gregg MD at [facility] Right: Spine Thoracic Advanced Neuromodulation Systems [id number] / / Description:JJ Slnt Dura Duraseal Pg Trilysine Amine 5 Implanted:Qt y: 1 on 09/16/2021 by Maxi Gregg MD at [facility] Right: Spine Thoracic Integra Lifesciences David / / Description:JJ Proclaim Plus 5 Implanted:Qt y: 1 on 02/16/2023 by Maxi Gregg MD at [facility] Left: Back Cardenas Spine [id number] 11/07/2024 3670 / [id number] / Explanted Type Area Reliner Device Identifier Shelf Expiration Date Model / Serial / Lot Gntr Nrstm 1.95inx2.19in Proclaim Elt Implanted:Qty: 1 on 09/16/2021 by Maxi Gregg MD at [facility] Explanted:Qty: 1 on 10/30/2021 by Maxi Gregg MD at [facility] Right: Spine Thoracic St [...] - 26 mg/dL 07/30/2023 2:31 AM [facility] Creatinine 0.67 0.56 - 0.96 mg/dL 07/30/2023 2:31 AM [facility] Sodium 136 136 - 145 mmol/L 07/30/2023 2:31 AM [facility] Potassium 4.4 3.5 - 4.5 mmol/L 07/30/2023 2:31 AM [facility] Chloride 101 98 - 107 mmol/L 07/30/2023 2:31 AM [facility] CO2 27 22 - 29 mmol/L 07/30/2023 2:31 AM [facility] Glucose 238(H) 70 - 115 mg/dL 07/30/2023 2:31 AM [facility] Albumin 2.9(L) 3.4 - 5.0 g/dL 07/30/2023 2:31 AM [facility] Calcium 9.4 8.4 - 10.2 mg/dL 07/30/2023 2:31 AM [facility] Phosphorus 3.0 2.9 - 5.1 mg/dL 07/30/2023 2:31 AM [facility] Anion Gap 8 6 - 16 07/30/2023 2:31 AM [facility] BUN/Creatinine Ratio 30(H) 7 - 23 07/30/2023 2:31 AM [facility] Osmolality Calculated 292 275 - 295 mOsm/kg 07/30/2023 2:31 AM [facility] eGFR by CKD-EPI >90 >=90 mL/min/1.7 3 m2 07/30/2023 2:31 AM [facility] Blood BLOOD SPECIMEN / Unknown Lab Venipuncture / Unknown 07/30/2023 1:28 AM CDT 07/30/2023 2:04 AM [facility] Brian Bravo MD LAB - CHEMISTRY ANGEL SPEARS [facility] Organization Address City/State/ZIP Co de Phone Number [facility] [address] [place] [address], [facility] [phone] * HEPATITIS C AB SCREEN RFLX NAAT QUANT (02/21/2023 6:30 PM CDT) Hepatitis C Antibody Non-react hugh Non-reac tive 02/21/2023 7:32 PM CDT [facility] Comment:Hepatitis C Antibody screen indicates [...] Solitario MD LAB - CHEMISTRY ANGEL SPEARS [facility] Organization Address City/State/ZIP Co de Phone Number [facility] [address] [place] [address], [facility] [phone] * (ABNORMAL) HEMOGLOBIN A1C (12/25/2022 3:56 AM CDT) Hemoglobin A1c 8.6(H) <=5.6 % 12/25/2022 2:47 PM CDT [facility] Estimated Average Glucose 200 mg/dL 12/25/2022 2:47 PM CDT [facility] Comment: HbA1c Interpretation: Normal : < 5.7% Pre-diabetes: 5.7-6.4% Diabetes: Equal to or greater than 6.5% Test results diagnostic of diabetes should be repeated for confirmation. Treatment target values recommended by ADA and other clinical organizations should be used to evaluate metabolic control in patients. Reference: [place] [employer] Association, Standards of Care in Diabetes [...] Rodriguez MD LAB - CHEMISTR Y ORDERABLES [facility] [address] [place] [address], [facility] [phone] from Last 3 Months or Most Recently [...] 3:37 AM 03/23/2023 7:14 PM Care Teams Corrosion Engineer Relationship Specialty Start Date End Date Justen Gale MD PCP - General 07/05/21
--- OUTSIDE RECORDS SUMMARY | 2024-05-16 20:41 | XMS_ITS ---
Author Organization [facility] Address [address] [place] [address] Care Team Providers Care Outpatient Admitting Clerk Name Role Phone Justen Gale MD Primary Care Provider [phone] Active Problems Problem Noted Date Diagnosed Date [...] treatments are documented for this patient in [facility]. Treatments may have been administered in another system. Lifetime Dose Tracking * Chemical Lifetime Dose Automatic Entry Manual Entr y Dose Length Product 1,838 mGy-cm 1,838 mGy-cm 0 mGy-cm Resolved Problems Problem Noted Date Diagnosed Date Resolved Date Rash 03/21/2023 04/18/2023
--- OUTSIDE RECORDS SUMMARY | 2024-05-16 20:41 | XMS_ITS | Encounter Summary ---
Author Organization [facility] Address [address] [place] [address] Phone Care Team Providers Care Vendor Analyst Name Role Phone Justen Gale MD Primary Care Provider [phone] David Roberts APRN, POTTERY STRIPER Unavailable [phone] Annel Rod MD Unavailable Encounter Details Date Type Department Care Team (Late st Contact Info) Description 05/13/2024 Results Follow-Up [facility] - Family Medicine [facility] [address] [place] [address] Justen Gale MD #[address] [address] Social History Tobacco Use Types Packs/Day Years [...] st Contact Info) Description 06/25/2024 2:45 PM ACTIVITIES SPECIALIST Office Visit [facility] Endocrinology - [place] [address] [facility] [place] [address] Annel Rod MD #[address] [place] [address] 06/28/2024 1:15 PM ACTIVITIES SPECIALIST Office Visit [facility] - [place] [address] [facility] [address] Annel Rod MD #[address] [place] [address] documented as of this encounter Visit Diagnoses Not on filedocumented in this encounter Additional Health Concerns Assessment Noted Time PHQ-9 Depression Total Score: 8 01/18/20 23 2:24 PM CDT documented as of this encounter Care Teams Vendor Analyst Relationship Specialty Start Date End Date Justen Gale MD #[address] [place] [address] PCP - General Family Medicine 10/17/17 David Roberts, FINANCIAL PROFESSIONAL, POTTERY STRIPER #2 [facility] [place] [address] Nurse Practitioner Advanced Practice Nurse 01/31/22 Annel Rod MD #[address] [place] [address] Consulting Physician Endocrinology 07/01/22 documented as of this encounter
--- OUTSIDE RECORDS SUMMARY | 2024-05-16 20:41 | XMS_ITS | Encounter Summary ---
Author Organization [facility] Address [address] [place] [address] Phone Care Team Providers Care Office Machines Teacher Name Role Phone Justen Gale MD Primary Care Provider [phone] David Roberts APRN, ASSISTANT BUSINESS MANAGER Unavailable [phone] Annel Rod MD Unavailable Reason for Visit * Reason Comments Medication Refill Encounter Details Date Type Department Care Team (Late st Contact Info) Description 09/30/2023 [facility]ill [facility]ology - [place] #2 [place] [address] Annel Rod MD #[address] [address] Medication Refill Social History Tobacco [...] AM CDT Medication(s) refilled and signed per [facility] Chronic Medication Refill Standing Order for Pediatric and Adult Patients. documented in this encounter Plan of Treatment Upcoming Encounters Date Type Department Care Team (Late st Contact Info) Description 06/25/2024 2:45 PM SQUEEGEE OPERATOR Office Visit [facility] - Endocrinology - [place] #2 [place] [address] Annel Rod MD #[address] [address] 06/28/2024 1:15 PM SQUEEGEE OPERATOR Office Visit [facility] - Endocrinology - [place] [address] [place] [address] Annel Rod MD #[address] [address] documented as of this encounter Visit Diagnoses Not on filedocumented in this encounter Additional Health Concerns Assessment Noted Time PHQ-9 Depression Total Score: 8 01/18/20 23 2:24 PM CDT documented as of this encounter Care Teams Office Machines Teacher Relationship Specialty Start Date End Date Justen Gale MD #[address] [address] PCP - General Family Medicine 10/17/17 David Roberts, CLINICAL RESEARCH SCIENTIST, ASSISTANT BUSINESS MANAGER #2 [place] [address] Nurse Practitioner Advanced Practice Nurse 01/31/22 Annel Rod MD #[address] [facility] [address] [address] Consulting Physician Endocrinology 07/01/22 documented as of this encounter
--- OUTSIDE RECORDS SUMMARY | 2024-05-16 20:41 | XMS_ITS | Encounter Summary ---
Author Organization [facility] Address [address] [place] [address] Phone Care Team Providers Care Rod Bending Machine Operator Name Role Phone Justen Gale MD Primary Care Provider [phone] David Roberts APRN, BUSINESS PERFORMANCE ANALYST Unavailable [phone] Annel Rod MD Unavailable Reason for Visit * Reason Comments Medication Refill Encounter Details Date Type Department Care Team (Late st Contact Info) Description 02/07/2023 Refill [facility] - Family [facility] #2 [place] [address] Pili Elkins APRN, BUSINESS PERFORMANCE ANALYST #[address] [address] Medication Refill Social History [...] st Contact Info) Description 06/25/2024 2:45 PM INSURANCE MANAGER Office Visit [facility] Endocrinology [facility] #2 [place] [address] Annel Rod MD #[address] [address] 06/28/2024 1:15 PM INSURANCE MANAGER Office Visit [facility] Endocrinology [facility] #2 [place] [address] Annel Rod MD #[address] [address] documented as of this encounter Visit Diagnoses Diagnosis Essential hypertension Unspecified essential hypertension documented in this encounter Additional Health Concerns Assessment Noted Time PHQ-9 Depression Total Score: 8 01/18/20 23 2:24 PM CDT documented as of this encounter Care Teams Rod Bending Machine Operator Relationship Specialty Start Date End Date Justen Gale MD #[address] [address] PCP - General Family Medicine 10/17/17 David Roberts APRN, BUSINESS PERFORMANCE ANALYST #2 [place] [address] Nurse Practitioner Advanced Practice Nurse 01/31/22 Annel Rod MD #[address] [phone] Consulting Physician Endocrinology 07/01/22 documented as of this encounter
--- OUTSIDE RECORDS SUMMARY | 2024-05-16 20:41 | XMS_ITS | Encounter Summary ---
Author Organization [facility] Address [address] [address] Phone Care Team Providers Care Campus Ambassador Name Role Phone Justen Gale MD Primary Care Provider [phone] David Roberts APRN, PREFORM MACHINE OPERATOR Unavailable [phone] Annel Rod MD Unavailable Reason for Visit * Reason Comments Medication Refill Encounter Details Date Type Department Care Team (Late st Contact Info) Description 08/07/2023 Refill [facility]ology - [place] #2 [place] [address] Annel Rod MD #[address] [address] Medication Refill Social History Tobacco [...] AM CDT Medication(s) refilled and signed per [facility] Chronic Medication Refill Standing Order for Pediatric and Adult Patients. documented in this encounter Plan of Treatment Upcoming Encounters Date Type Department Care Team (Late st Contact Info) Description 06/25/2024 2:45 PM AUTO ENGINE MECHANIC Office Visit [facility] Group - Endocrinology - [place] #2 [place] [address] Annel Rod MD #[address] [address] 06/28/2024 1:15 PM AUTO ENGINE MECHANIC Office Visit [facility] - Endocrinology - [place] #2 [place] [address] Annel Rod MD #[address] [address] documented as of this encounter Visit Diagnoses Not on filedocumented in this encounter Additional Health Concerns Assessment Noted Time PHQ-9 Depression Total Score: 8 01/18/20 23 2:24 PM CDT documented as of this encounter Care Teams Campus Ambassador Relationship Specialty Start Date End Date Justen Gale MD #[address] [address] PCP - General Family Medicine 10/17/17 David Roberts, ACADEMIC SUPPORT COORDINATOR, PREFORM MACHINE OPERATOR #2 [facility] [place] [address] Nurse Practitioner Advanced Practice Nurse 01/31/22 Annel Rod MD #[address] [address] Consulting Physician Endocrinology 07/01/22 documented as of this encounter
--- OUTSIDE RECORDS SUMMARY | 2024-05-16 20:41 | XMS_ITS | Encounter Summary ---
Author Organization [facility] Address [address] [place] [address] Phone Care Team Providers Care Screening Specialist Name Role Phone Justen Gale MD Primary Care Provider [phone] David Roberts APRN, SENIOR PRODUCT MANAGER Unavailable [phone] Annel Rod MD Unavailable Reason for Visit * Reason Comments Medication Refill Encounter Details Date Type Department Care Team (Late st Contact Info) Description 04/13/2023 Refill [facility] - End[facility]ology - [place] #2 [place] [address] Annel Rod MD #[address] [address] Medication Refill Social History [...] Jennifer Wang, RN - 04/14/2023 10:00 AM HASHER OPERATOR Requested Prescriptions Pending Prescriptions Disp Refills ??? Continuous Blood Gluc Sensor (FreeStyle Eileen 2 Sensor) Misc [Pharmacy Med Name: FREESTYLE EILEEN 2 SENSOR] 6 Each 1 Sig: APPLY 1 SENSOR AND WEAR FOR 14 DAYS TO CHECK BLOOD SUGAR Next appt: 05/30/2023 ER OPERATOR documented in this encounter Plan of Treatment Upcoming Encounters Date Type Department Care Team (Late st Contact Info) Description 06/25/2024 2:45 PM HASHER OPERATOR Office Visit [facility] - Endocrinology - [place] [address] [place] [address] Annel Rod MD #[address] [address] 06/28/2024 1:15 PM HASHER OPERATOR Office Visit [facility] - Endocrinology - [place] [address] [place] [address] Annel Rod MD #[address] [address] documented as of this encounter Visit Diagnoses Not on filedocumented in this encounter Additional Health Concerns Assessment Noted Time PHQ-9 Depression Total Score: 8 01/18/20 23 2:24 PM CDT documented as of this encounter Care Teams Screening Specialist Relationship Specialty Start Date End Date Justen Gale MD #2 [facility] [address] [place] [address] PCP - General Family Medicine 10/17/17 David Roberts APRN, NETTA #2 [place] [address] Nurse Practitioner Advanced Practice Nurse 01/31/22 Annel Rod MD #[address] [phone] Consulting Physician Endocrinology 07/01/22 documented as of this encounter
--- OUTSIDE RECORDS SUMMARY | 2024-05-16 20:41 | XMS_ITS | Encounter Summary ---
Author Organization [facility] Address [address] [place] [address] Phone Care Team Providers Care Electric Operator Name Role Phone Justen Gale MD Primary Care Provider [phone] David Roberts APRN, EPIDEMIOLOGIST Unavailable [phone] Annel Rod MD Unavailable Reason for Visit * Reason Onset Date Comments Advice Only 11/21/2023 Encounter Details Date Type Department Care Team (Late st Contact Info) Description 11/21/2023 Telephone [facility] [address] [place] [address] Justen Gale MD #[address] [address] Advice Only Social History Tobacco Use Types [...] encounter Miscellaneous Notes * Telephone Encounter - Zach Gonzalezholden Hannah - 11/21/2023 3:17 PM CDT RFC: Alejandra from [facility] is calling to state that patient is listed as being a diabteic but is not on a statin. Please call Alejandra (relationship to patient n/a) back regarding above referenced patient. Patient's Provider is Justen Gale MD . documented in this encounter Plan of Treatment Upcoming Encounters Date Type Department Care Team (Late st Contact Info) Description 06/25/2024 2:45 PM PIPE LINE GAUGER Office Visit [facility] - Endocrinology - [place] #2 [place] [address] Annel Rod MD #[address] [address] 06/28/2024 1:15 PM PIPE LINE GAUGER Office Visit [facility] - Endocrinology - [place] #2 [facility] [address] Annel Rod MD #[address] [place] [address] documented as of this encounter Visit Diagnoses Not on filedocumented in this encounter Additional Health Concerns Assessment Noted Time PHQ-9 Depression Total Score: 8 01/18/20 23 2:24 PM CDT documented as of this encounter Care Teams Electric Operator Relationship Specialty Start Date End Date Justen Gale MD #2 [facility] [address] [place] [address] PCP - General Family Medicine 10/17/17 David Roberts APRN, EPIDEMIOLOGIST #2 [place] [address] Nurse Practitioner Advanced Practice Nurse 01/31/22 Annel Rod MD #[address] [phone] Consulting Physician Endocrinology 07/01/22 documented as of this encounter
--- OUTSIDE RECORDS SUMMARY | 2024-05-16 20:41 | XMS_ITS | Encounter Summary ---
Author Organization [facility] Address [address] [place] [address] Phone Care Team Providers Care Utilization Management Manager Name Role Phone Justen Gale MD Primary Care Provider [phone] David Roberts APRN, GREASE REFINING SUPERVISOR Unavailable [phone] Annel Rod MD Unavailable Reason for Visit * Reason Comments Medication Refill Encounter Details Date Type Department Care Team (Late st Contact Info) Description 02/07/2023 Refill [facility] - Family Medicine [facility] #2 [place] [address] Catrina Quiñonez MD #2 [place] [address] Medication Refill Social History Tobacco Use Types [...] Dept 01/17/23 Office Visit Catrina Quiñonez MD [facility] [place] 09/16/22 Office Visit Pili Elkins APRN, CNP [place] 07/05/22 Office Visit Pili Elkins APRN, CNP [place] 05/02/22 Office Visit Justen Gale MD [facility] [place] 03/03/22 Office Visit Pili Elkins APRN, NETTA [facility] [place] Showing recent visits within past 365 days and meeting all other requirements Future Appointments No visits were found meeting these conditions. Showing future appointments within next 90 days and meeting all other requirements documented in this encounter Plan of Treatment Upcoming Encounters Date Type Department Care Team (Late st Contact Info) Description 06/25/2024 2:45 PM PERSONAL BANKING OFFICER Office Visit [facility] - Endocrinology - [place] [address] [place] [address] Annel Rod MD #[address] [address] 06/28/2024 1:15 PM PERSONAL BANKING OFFICER Office Visit [facility] - Endocrinology [facility] #2 [place] [address] Annel Rod MD #[address] [address] documented as of this encounter Visit Diagnoses Not on filedocumented in this encounter Additional Health Concerns Assessment Noted Time PHQ-9 Depression Total Score: 8 01/18/20 23 2:24 PM CDT documented as of this encounter Care Teams Utilization Management Manager Relationship Specialty Start Date End Date Justen Gale MD #[address] [address] PCP - General Family Medicine 10/17/17 David Roberts APRN, GREASE REFINING SUPERVISOR #2 [place] [address] Nurse Practitioner Advanced Practice Nurse 01/31/22 Annel Rod MD #[address] [address] Consulting Physician Endocrinology 07/01/22 documented as of this encounter
--- OUTSIDE RECORDS SUMMARY | 2024-05-16 20:41 | XMS_ITS | Clinical Summary ---
Author Organization [facility] Address [address] [facility] [place] [address] Care Team Providers Care Load Manager Name Role Phone Justen Gale MD Primary Care Provider [phone] Source Comments [facility],non-boone hospital center Affiliates and Associated Physician Practices is amultiple site organization consisting of ambulatory clinics and hospital sitesin [place], [place], [place] and [place]. This disclosure is being madepursuant to the Care Everywhere program and may not contain all information available regarding this patient. Last updated 18.[facility]ambit Allergies Active Allergy Reactions Criticality Noted Date [...] Gluc Sensor (FreeStyle Eileen 2 Sensor Systm) [facility] APPLY 1 SENSOR AND WEAR FOR 14 [...] Orders Only [facility] - Urology [address] [place] [address] Caroline Sultana RN from Last 3 Months Immunizations Name Administration [...] medical care, and heating? Somewhat hard 05/16/2023 [facility] - [...] - COLON CA SCREENING 1956 PNEUMOCOCCAL VACCINE 50+ (1 of 2 - PCV) 1975 DIABETES-STATIN 1996 ZOSTER VACCINE (1 of 2) 2006 Respiratory Syncytial Virus (RSV) Vaccine Pt: or over 60 yrs (1 - Risk 60-74 years 1-dose series) 2016 MAMMOGRAM 08/19/2018 08/19/2016 DIABETES RETINOPATHY SCREENING 10/04/2021 DIABETES-FOOT EXAM WITH MONOFILAMENT 10/04/2021 DIABETES-HGB A1C 08/28/2023 05/30/2023, 06/2022, 02/11/2022, Additional history exists COVID-19 VACCINE ( season) 2023 05/04/2021, 06/29/2020 INFLUENZA VACCINE (#1) 2023 , 01/17/2023, 01/03/2022, Additional history exists DEPRESSION SCREENING 04/24/2024 DIABETES - URINE PROTEIN SCREENING 04/24/2024 09/11/2021 MEDICARE AWV ? CALENDAR YEAR 2024 DIABETES-SERUM CREATININE 12/03/20242023, 07/30/2023, 07/26/2023, Additional history exists DTAP/TDAP/TD VACCINES (2 - [...] patient's age to complete this topic MENINGOCOCCAL (Group B) VACCINE Aged Out No longer eligible based on patient's age to complete this topic MENINGOCOCCAL VACCINE Aged Out No princess lencho eligible based on patient's age to complete this topic Medical Devices Implanted Type Area Classroom Paraprofessional Device Identifier Shelf Expiration Date Model / Serial / Lot Lead Nrstm 60cm Penta 3mm Pdl 16 Chnl Implanted:Qt y: 1 on 09/16/2021 by Maxi Gregg MD at [facility] Right: Spine Thoracic [employer] [id number] / / Description:JFran Slnt Dura Duraseal Pg Trilysine Amine 5 Implanted:Qt y: 1 on 09/16/2021 by Maxi Gregg MD at [facility] Right: Spine Thoracic [employer] David [id number] / / Description:JFran Proclaim Plus 5 Implanted:Qt y: 1 on 02/16/2023 by Maxi Gregg MD at [facility] Left: Back Cardenas Spine [id number] 11/07/2024 3670 / [id number] / Explanted Type Area Classroom Paraprofessional Device Identifier Shelf Expiration Date Model / Serial / Lot Gntr Nrstm [id number] Proclaim Elt Implanted:Qty: 1 on 09/16/2021 by Maxi Gregg MD at [facility] Explanted:Qty: 1 on 10/30/2021 by Maxi Gregg MD at [facility] Right: Spine Thoracic [facility] [...] 7 - 26 mg/dL 07/30/2023 2:31 AM CDT [facility] Creatinine 0.67 0.56 - 0.96 mg/dL 07/30/2023 2:31 AM CDT [facility] Sodium 136 136 - 145 mmol/L 07/30/2023 2:31 AM [facility] Potassium 4.4 3.5 - 4.5 mmol/L 07/30/2023 2:31 AM [facility] Chloride 101 98 - 107 mmol/L 07/30/2023 2:31 AM [facility] CO2 27 22 - 29 mmol/L 07/30/2023 2:31 AM [facility] Glucose 238(H) 70 - 115 mg/dL 07/30/2023 2:31 AM [facility] Albumin 2.9(L) 3.4 - 5.0 g/dL 07/30/2023 2:31 AM [facility] Calcium 9.4 8.4 - 10.2 mg/dL 07/30/2023 2:31 AM [facility] Phosphorus 3.0 2.9 - 5.1 mg/dL 07/30/2023 2:31 AM [facility] Anion Gap 8 6 - 16 07/30/2023 2:31 AM [facility] BUN/Creatinine Ratio 30(H) 7 - 23 07/30/2023 2:31 AM [facility] Osmolality Calculated 292 275 - 295 mOsm/kg 07/30/2023 2:31 AM [facility] eGFR by CKD-EPI >90 >=90 mL/min/1.7 3 m2 07/30/2023 2:31 AM [facility] Blood BLOOD SPECIMEN / Unknown Lab Venipuncture / Unknown 07/30/2023 1:28 AM CDT 07/30/2023 2:04 AM T Brian Bravo MD LAB - CHEMISTRY ANGEL SPEARS [facility] Organization Address City/State/ZIP Co de Phone Number [facility] [address] [place] [address], [facility] [phone] * HEPATITIS C AB SCREEN RFLX NAAT QUANT (02/21/2023 6:30 PM CDT) Hepatitis C Antibody Non-react hugh Non-reac tive 02/21/2023 7:32 PM [facility] Comment:Hepatitis C Antibody screen indicates no [...] - CHEMISTRY ANGEL SPEARS Performing Organization Address City/[facility]/ZIP Co de Phone Number [address] [address], [place] [phone] * (ABNORMAL) HEMOGLOBIN A1C (12/25/2022 3:56 AM CDT) Hemoglobin A1c 8.6(H) <=5.6 % 12/25/2022 2:47 PM CDT [facility] Estimated Average Glucose 200 mg/dL 12/25/2022 2:47 PM CDT [facility] Comment: HbA1c Interpretation: Normal : < 5.7% Pre-diabetes: 5.7-6.4% Diabetes: Equal to or greater than 6.5% Test results diagnostic of diabetes should be repeated for confirmation. Treatment target values recommended by ADA and other clinical organizations should be used to evaluate metabolic control in patients. Reference: [place] [employer], Standards of Care in Diabetes -2020 In patients 70 years and older consider HbA1c target range of 7.0-7.5% (Reference: Travis Storey, et al. JAMDA. 2012) The Sebia assay for the measurement of HbA1c is a National Glycohemoglobin Standardization Program (NGSP) certified method. Blood BLOOD SPECIMEN / Unknown Lab Venipuncture / Unknown 12/25/2022 3:56 AM CDT 12/25/2022 4:30 AM CDT Jerrod Rodriguez MD LAB - CHEMISTR Y ORDERABLES Performing Organization Address [facility]/ZIP Co de Phone Number [address] [address], [place] [phone] from Last 3 Months or Most Recently [...] 3:37 AM 03/23/2023 7:14 PM Care Teams Load Manager Relationship Specialty Start Date End Date Justen Gale MD PCP - General 07/05/21
--- OUTSIDE RECORDS SUMMARY | 2024-05-16 20:42 | XMS_ITS | Clinical Summary ---
Author Organization [facility] Address [address] [place] [id number] Care Team Providers Care Candy Cutter Machine Name Role Phone Liu Jerez MD Unavailable [phone] Albert Corbin MD Unavailable Justen Gale MD Primary Care Provider Khris Arthur MD Unavailable [phone] Ko Melendez MD Unavailable John Paul Moyer MD Unavailable [phone] Annel Rod MD Unavailable Anali MARSHALL MD, [...] Taken at 2100 Active blood glucose diagnostic ([employer] Ultra Test) strip 4 (four) times a [...] complication, without long-term current use of insulin ([facility]) 10/23/2017 Assessment & Plan (10/23/2017 [...] (07/28/2017): Added automatically from request for surgery [id number] Pulmonary embolism 08/09/2016 Assessment & Plan (10/23/2017 [...] Encounters Date Type Department Care Team Description 05/16/2024 Telephone [facility] [address] [place] [address] 8 [place] [address] Jeanine Ba RMA 05/16/2024 Orders Only [facility] [address] [place] [address] 8 [place] [address] Radha Mcgrath RN History of breast cancer (Primary Dx); Axillary pain, left 05/16/2024 Orders Only [facility] [address] [place] [address] 8 [place] [address] Khris Arthur MD Swelling of left upper extremity (Primary Dx); Swelling of left lower extremity 05/14/2024 4:45 PM STATION INSTALLER Lab [facility] - Lab [facility] [address] [facility] [place] [address] Malignant neoplasm of upper-inner quadrant of left breast in female, estrogen receptor positive (HCC) 05/14/2024 4:36 PM STATION INSTALLER - 05/14/2024 11:59 PM STATION INSTALLER Hospital Encounter [facility] - Diagnostic Imaging [address] [facility] [place] [address] Malignant neoplasm of upper-inner quadrant of left breast in female, estrogen receptor positive (HCC) Discharge Disposition: Discharge to home or self care 05/14/2024 3:30 PM STATION INSTALLER Office Visit [facility] [address] [place] [address] 8 [place] [phone] Khris Arthur MD Swelling of right lower extremity (Primary Dx); Malignant neoplasm of upper-inner quadrant of left breast in female, estrogen receptor positive (HCC); Swelling of right upper extremity; Swelling of left upper extremity; Swelling of left lower extremity 04/22/2024 Telephone [facility] [address] [place] [phone] Radah Mcgrath RN 04/19/[address] [phone] Lalita Braun RN Scheduling Appointments 02/15/2024 2:22 AM CDT - 02/15/2024 5:58 AM CDT Emergency [facility] Emergency Department [address] [place] [address] Jeremías Smith MD Myalgia (Primary Dx) Discharge Disposition: Discharge to home or self care from Last 3 Months Immunizations Name Administration Dates Next Due Influenza, Quadrivalent, Spl it, Intramuscular 02/06/2017,02/11/2015 Influenza, Quadrivalent, Spl it, Preservative Free, Intramuscular 01/03/2022,05/04/2021,01/18/2020,02/25,01/24/2018,02/14/2017 Influenza, Trivalent, IM (MDV) 0,01/23/2016,03/07/2014,05/07 Influenza, Unspecified 01/23/2016,03/07/2014, Tdap 02/23/2016 Surgical History Surgery Date Site/Laterality Comments INGUINAL HERNIA REPAIR OOPHORECTOMY Right CHOLECYSTECTOMY gallbladder removal SECTION section ABSCESS CATHETER INJECTION 11/26/2014 N/A ABSCESS CATHETER INJECTION 11/26/2014 N/A ABSCESS CATHETER INJECTION 11/14/2014 N/A US SOFT TISSUE ABSCESS DRAIN 12/11/2014 N/A ABSCESS TUBE EXCHANGE 11/05/2014 N/A ABSCESS CATHETER INJECTION 11/05/2014 N/A US SOFT TISSUE ABSCESS DRAIN 10/24/2014 N/A IR FINE NEEDLE ASPIRATION W IMAGE GUIDANCE 07/25/2014 N/A MASTECTOMY PORT PLACEMENT CHEST >5 YEARS 11/05/2021 N/A TOTAL KNEE ARTHROPLASTY Right ESOPHAGOGASTRODUODENOSCOPY COLONOSCOPY VENTRAL HERNIA REPAIR CARDIAC CATHETERIZATION THYROID SURGERY Biopsy benign. CYSTOSCOPY Medical History Medical History Date Comments Osteoarthritis osteoarthritis Depression Depression DVT (deep venous thrombosis) (CMS/HCC) (HCC) PE (pulmonary thromboembolism) (CMS/HCC) (HCC) CHF (congestive heart failure) (CMS/HCC) (HCC) Breast CA (HCC) RLS (restless legs syndrome) DM (diabetes mellitus) (HCC) HTN (hypertension) LUL (obstructive sleep apnea) Obesity Osteoporosis Family History Medical History Relation Name Comments [...] drink = 0.6 oz pur e alcohol) [facility] Utilities Answer Date Recorded In [...] often do you attend chur ch or yarsanism services? Patient unable to answer 08/15/2023 Do [...] in a senior living (including now)? No 08/15/2023 Personal Safety Answer Date Recorded Have you ever been in or are you currently in a harmful physical or emotional relationship or is someone making you feel afraid or unsafe? Denies 02/14/2024 Comments No Sex and Gender Information Value Date Recorded Sex Assigned at Not on file Legal Sex Female 12:24 AM STATION INSTALLER Gender Identity Not on file Sexual Orientation Not on file Obstetrics History Last Filed Vital Signs Vital Sign Reading Time Taken Comments Blood Pressure 131/78 05/14/2024 3:40 PM STATION INSTALLER Pulse 80 05/14/2024 3:40 PM STATION INSTALLER Temperature 36.8 ??C (98.3 ??F) 05/14/2024 3:40 PM CS T Respiratory Rate 18 05/14/2024 3:40 PM STATION INSTALLER Oxygen Saturation 99% 05/14/2024 3:40 PM STATION INSTALLER Inhaled Oxygen Concentration - - Weight 121.1 kg (267 lb) 05/14/2024 3:40 PM STATION INSTALLER Height 154.9 cm (5' 1 ) 05/14/2024 3:40 PM STATION INSTALLER Body Mass Index 50.45 05/14/2024 3:40 PM STATION INSTALLER Plan of Treatment Health Maintenance Due Date Last Done Comments Albumin Creatinine Ratio, Urine 1955 Hepatitis C Screening 1955 Dilated Eye Exam 1956 Foot Exam 1956 Pneumococcal vaccine 65+ (1 of 2 - PCV) 1962 Hepatitis B Screening 1974 Zoster Vaccine (1 of 2) 1975 Breast Cancer Screening-Mammogram 08/19/2017 017 Depression Screening 01/23/2019 01/23/2018, 01/24/20 18 Covid-19 Vaccine (2 - Jansse n risk [...] 07/03/2017 Colon Cancer Screening-DNA Stool Discontinued 07/04/19 Colon Cancer Screening-FIT Discontinued 07/03/2017 Colon Cancer Screening-Sigmoidoscopy Discontinued 07/03/2017 Procedures Procedure Name Priority Date/Time Associated Diagnosis Comments URINALYSIS, MICROSCOPIC ONLY Routine 05/14/2024 4:50 PM STATION INSTALLER Malignant neoplasm of upper-inner quadrant of left breast in female, estrogen receptor positive (HCC) URINALYSIS AND REFLEX TO MICROSCOPIC AND CULTURE Routine 05/14/2024 4:50 PM STATION INSTALLER Malignant neoplasm of upper-inner quadrant of left breast in female, estrogen receptor positive (HCC) XR RIBS LEFT 2 VIEWS Schedule Routine, Read Routine (OP Routine) 05/14/2024 4:44 PM STATION INSTALLER Malignant neoplasm of upper-inner quadrant of left breast in female, estrogen receptor positive (HCC) URINALYSIS, MICROSCOPIC ONLY STAT 02/15/2024 1:19 AM [...] to microscopic and culture Urine, clean voided (05/14/2024 4:50 PM STATION INSTALLER) Color, ur Straw Yellow Clarity, ur Clear Clear [facility] Specific gravity, ur 1.025 1.003 - 1.030 [facility] pH, urine 5.5 [facility] Comment: Interpretive Data ? Urine pH is affected by diet, medications, systemic acid-base disturbances, and renal tubular function. ??pH may affect urinary stone formation. ??For example, urine pH below 6.0 may help reduce the tendency for calcium phosphate stones and pH greater than 6.0 may reduce the tendency for uric acid stone formation. Source: [facility] Current Interpretive Data was last revised on 2017 Protein, ur ql Trace Negative [facility] Glucose, ur ql Negative Negative [facility] Ketones, ur Negative Negative [facility] Bilirubin, ur Negative Negative [facility] Blood, ur Trace(A) Negative [facility] Urobilinogen, ur <2.0 <2.0 mg/dL [facility] Nitrite, ur Negative Negative [facility] Leukocyte esterase, ur Negative Negative [facility] UA reflex comment Reflex to microscopic UA will be performed. [facility] Urine, clean voided 05/14/2024 4:50 PM STATION INSTALLER 05/14/2024 7:18 PM STATION INSTALLER Khris Arthur MD LAB MICROBIOLOGY - [facility] ORDERABLES Final Result [facility] Department [place] [address] * (ABNORMAL) Urinalysis, microscopic only (05/14/2024 4:50 PM STATION INSTALLER) WBC, ur 0-5 0 - 5 /HPF RBC, ur 0-2 0 - 2 /HPF [facility] Epithelial cells, squamous, ur 1-5 0 - 5 /HPF [facility] Bacteria, ur Trace(A) [facility] Mucous, ur Present(A) [facility] Culture Reflex Comment Reflex conditions for urine culture (WBC >10) not met. [facility] Urine, clean voided 05/14/2024 4:50 PM STATION INSTALLER 05/14/2024 7:18 PM STATION INSTALLER Khris Arthur MD LAB URINE ORDERABLES Final Result MARY JANE [facility] Department [place] [address] * XR Ribs Left 2 Views (05/14/2024 4:44 PM STATION INSTALLER) Anatomical Region Laterality Modality Rib, Chest Left Digital Radiogra phy 05/14/2024 4:54 PM STATION INSTALLER Impressions 05/14/2024 4:54 PM STATION INSTALLER 1. ??No displaced left rib fracture. Electronically signed by: Santiago Gan D.O. Narrative 05/14/2024 4:54 PM STATION INSTALLER EXAMINATION: XR RIBS LEFT 2 VIEWS HISTORY: pain in left axilla area FINDINGS: Comparison is made to 12/28/2023. No displaced rib fracture is apparent radiographically. No pneumothorax. No pleural effusion. No focal pulmonary consolidation. Cardiomediastinal silhouette is within normal limits. Mild aortic atherosclerosis. Thoracic spinal stimulator is seen with intact leads and electrode paddle at the level T7-T8 with pulse generator projecting over the left pelvis. Cholecystectomy clips. Procedure Note Santiago Gan, DO - 05/14/2024 EXAMINATION: XR RIBS LEFT 2 VIEWS HISTORY: pain in left axilla area FINDINGS: Comparison is made to 12/28/2023. No displaced rib fracture is apparent radiographically. No pneumothorax. No pleural effusion. No focal pulmonary consolidation. Cardiomediastinal silhouette is within normal limits. Mild aortic atherosclerosis. Thoracic spinal stimulator is seen with intact leads and electrode paddle at the level T7-T8 with pulse generator projecting over the left pelvis. Cholecystectomy clips. IMPRESSION: 1. No displaced left rib fracture. Electronically signed by: Santiago Gan D.O. us Khris Arthur MD IMG XR PROCEDURES Fi nal Result * (ABNORMAL) Urinalysis reflex to microscopic and culture Urine, in and out catheter (02/15/2024 1:19AM CDT) Color, ur Yellow Yellow Comment:Testing performed by : [address] [address] Clarity, ur Clear Clear MARY JANE Comment:Testing performed by : [address], [place]., [address] Specific gravity, ur 1.023 1.003 - 1.030 MARY JANE Comment:Testing performed by : [address] [address] pH, urine 5.5 MARY JANE Comment: Interpretive Data ? Urine pH is affected by diet, medications, systemic acid-base disturbances, and renal tubular function. ??pH may affect urinary stone formation. ??For example, urine pH below 6.0 may help reduce the tendency for calcium phosphate stones and pH greater than 6.0 may reduce the tendency for uric acid stone formation. Source: [facility] Current Interpretive Data was last revised on 2017 Testing performed by: [address] [address] Protein, ur ql Negative Negative MARY JANE Comment:Testing performed by : [address] [address] Glucose, ur ql Trace(A) Negative MARY JANE Comment:Testing performed by : [address] [address] Ketones, ur Negative Negative MARY JANE Comment:Testing performed by : [address] [address] Bilirubin, ur Negative Negative MARY JANE Comment:Testing performed by : [address] [address] Blood, ur 1+(A) Negative MARY JANE Comment:Testing performed by : [address] [address] Urobilinogen, ur <2.0 <2.0 mg/dL MARY JANE Comment:Testing performed by : [address] [address] Nitrite, ur Negative Negative MARY JANE Comment:Testing performed by : [address] [address] Leukocyte esterase, ur Negative Negative MARY JANE Comment:Testing performed by : [address] [address] UA reflex comment Reflex to microscopic UA will be performed. MARY JANE Comment:Testing performed by : [address] [address] Urine, in and out catheter 02/15/2024 1:19 AM CDT 02/15/2024 1:23 AM CDT us Jeremías Smith MD LAB MICROBIOLOGY - GENERAL ORD ERABLES Final Result MARY JANE [address] [facility] Department of Laboratories [place], [place] [id number] * (ABNORMAL) Urinalysis, microscopic only (02/15/2024 1:19 AM CDT) WBC, ur 0-5 0 - 5 /HPF Comment:Testing performed by : [address] [address] RBC, ur 3-5(A) 0 - 2 /HPF MARY JANE Comment:Testing performed by : [address] [address] Epithelial cells, squamous, ur 1-5 0 - 5 /HPF MARY JANE Comment:Testing performed by : [address] [address] Mucous, ur Present(A) MARY JANE Comment:Testing performed by : [address] [address] Hyaline casts, ur 1-5 0 - 10 /LPF MARY JANE Comment:Testing performed by : [address] [address] Culture Reflex Comment Reflex conditions for urine culture (WBC >10) not met. MARY JANE Comment:Testing performed by : [address] [address] Urine, in and out catheter 02/15/2024 1:19 AM CDT 02/15/2024 1:23 AM CDT us Jeremías Smith MD LAB URINE ORDERABLES Final Res ult Performing Organization Address City/[facility]/ZIP Co de Phone Number MARY JANE [address] [facility] [place], [place] [id number] * eGFR (02/15/2024 1:09 AM CDT) eGFR [...] reviewed 2021. Testing performed by: [facility], [address] [place] [address]., [address] Blood 02/15/2024 1:09 AM CDT 02/15/2024 1:15 AM CDT us Jeremías Smith MD LAB BLOOD ORDERABLES Final Res ult Performing Organization Address City/[facility]/ZIP Co de Phone Number MARY JANE [address] [facility] [place] [address] * Creatine kinase (CK), total (02/15/2024 1:09 AM CDT) CK 137 30 - 200 Units/L Comment:Testing performed by : [address] [address] Blood 02/15/2024 1:09 AM CDT 02/15/2024 4:55 AM CDT us Jeremías Smith MD LAB BLOOD ORDERABLES Final Res ult [facility] [address] [facility] Department [place] [address] * (ABNORMAL) Comprehensive metabolic panel (02/15/2024 1:09 AM CDT) Pathologist [facility] Sodium 137 135 - 145 mmol/L Comment:Testing performed by : [address] [address] Potassium, pl 4.3 3.3 - 4.9 mmol/L MARY JANE Comment:Testing performed by : [address] [address] Chloride 100 97 - 110 mmol/L MARY JANE Comment:Testing performed by : [address] [address] CO2 29 22 - 32 mmol/L MARY JANE Comment:Testing performed by : [address] [address] Anion gap 8 2 - 15 mmol/L MARY JANE Comment:Testing performed by : [address] [address] BUN 22 6 - 25 mg/dL MARY JANE Comment:Testing performed by : [address] [address] Creatinine 0.60 0.60 - 1.10 mg/dL MARY JANE Comment:Testing performed by : [address] [address] Glucose 231(H) 70 - 199 mg/dL MARY [...] was last revised 2022. Testing performed by: [address] [address] Calcium 10.3 8.5 - 10.3 mg/dL MARY JANE Comment:Testing performed by : [address] [address] Bilirubin, total 0.4 0.1 - 1.2 mg/dL MARY JANE Comment:Testing performed by : [address] [address] Protein, pl 8.2 6.5 - 8.5 g/dL MARY JANE Comment:Testing performed by : [address] [address] Albumin 3.9 3.5 - 5.0 g/dL MARY JANE Comment:Testing performed by : [address] [address] Alk phos 74 40 - 130 Units/L MARY JANE Comment:Testing performed by : [address] [address] ALT 18 7 - 45 Units/L MARY JANE Comment:Testing performed by : [address] [address] AST 16 10 - 45 Units/L MARY JANE Comment:Testing performed by : [address] [address] Blood 02/15/2024 1:09 AM CDT 02/15/2024 1:15 AM CDT us Jeremías Smith MD LAB BLOOD ORDERABLES Final Res ult MARY JANE [address] [facility] Department [place] [address] * Influenza A/B, RSV, and COVID-19 PCR Nasopharyngeal (02/14/2024 11:43 PM CDT) [facility] COVID-19 RNA Negative Negative Comment:Testing performed by : [address] [address] Influenza A RNA Negative Negative [facility] Comment:Testing performed by : [address] [address] Influenza B RNA Negative Negative [facility] Comment:Testing performed by : [address] [address] RSV RNA Negative Negative [facility] Comment: Interpretive data: Testing performed by [facility]. This test is performed using the [employer] Xpert Xpress CoV-2/Flu/RSV plus assay. This is [...] Data last revised 2023 Testing performed by: [address] [address] Nasopharyngeal 02/14/2024 11 :43 PM CDT 02/14/2024 11:49 PM CDT Narrative [facility] - 02/15/2024 12:35 AM CDT Is the Patient experiencing symptoms consistent with COVID?->Yes us Jeremías Smith MD LAB MICROBIOLOGY - GENERAL ORD ERABLES Final Result MARY JANE [address] [facility] Department [place] [address] * Differential, auto (02/14/2024 11:43 PM CDT) [facility] Neutrophil abs 6.4 1.5 - 6.5 K/cumm Comment:Testing performed by : [address] [address] Imm gran abs 0.1 0.0 - 0.1 K/cumm CERNER Comment:Testing performed by : [address], [place]., [address] Lymphocyte abs 2.5 0.8 - 3.3 K/cumm CERNER Comment:Testing performed by : [address] [address] Monocyte abs 0.7 0.2 - 0.8 K/cumm [facility] Comment:Testing performed by : [address], [place]., [address] Eosinophil abs 0.3 0.0 - 0.5 K/cumm [facility] Comment:Testing performed by : [address] [address] Basophil abs 0.0 0.0 - 0.1 K/cumm [facility] Comment:Testing performed by : [address] [address] Neutrophil pct 63.7 % CERNER Comment: Interpretive Data Percent cell count reference ranges are not reported, since discordance with absolute values may lead to misinterpretation of CBC data. Current Interpretive Data was last revised on 2017. Testing performed by: [address] [address] Imm gran pct 0.5 % CERNER Comment: Interpretive Data Percent cell count reference ranges are not reported, since discordance with absolute values may lead to misinterpretation of CBC data. Current Interpretive Data was last revised on 2017. Testing performed by: [address] [address] Lymphocyte pct 24.7 % CERNER Comment: Interpretive Data Percent cell count reference ranges are not reported, since discordance with absolute values may lead to misinterpretation of CBC data. Current Interpretive Data was last revised on 2017. Testing performed by: [address] [address] Monocyte pct 7.4 % CERNER Comment: Interpretive Data Percent cell count reference ranges are not reported, since discordance with absolute values may lead to misinterpretation of CBC data. Current Interpretive Data was last revised on 2017. Testing performed by: [address] [address] Eosinophil pct 3.3 % MARY JANE Comment: Interpretive Data Percent cell count reference ranges are not reported, since discordance with absolute values may lead to misinterpretation of CBC data. Current Interpretive Data was last revised on 2017. Testing performed by: [address] [address] Basophil pct 0.4 % MARY JANE Comment: Interpretive Data Percent cell count reference ranges are not reported, since discordance with absolute values may lead to misinterpretation of CBC data. Current Interpretive Data was last revised on 2017. Testing performed by: [address] [address] Blood 02/14/2024 11:4 3 PM CDT 02/14/2024 11:49 PM CDT us Jeremías Smith MD LAB BLOOD ORDERABLES Final Res ult [facility] [address] [facility] Department [place] [address] * (ABNORMAL) CBC with auto differential (02/14/2024 11:43 PM CDT) WBC 10.0(H) 3.8 - 9.9 K/cumm Comment:Testing performed by : [address] [address] Hgb 13.7 11.9 - 15.5 g/dL MARY JANE Comment:Testing performed by : [address] [address] Hct 42.4 35.6 - 45.5 % MARY JANE Comment:Testing performed by : [address] [address] Plt 273 150 - 400 K/cumm MARY JANE Comment:Testing performed by : [address] [address] MPV 10.3 9.1 - 12.3 fL MARY JANE PHAM Comment:Testing performed by : [address] [address] RBC 4.73 3.90 - 5.20 M/cumm MARY JANE PHAM Comment:Testing performed by : [address] [address] MCV 89.6 81.3 - 96.4 fL MARY JANE Comment:Testing performed by : [address] [address] MCH 29.0 27.1 - 33.3 pg MARY JANE PHAM Comment:Testing performed by : [address] [address] MCHC 32.3 32.3 - 35.7 g/dL MARY JANE Comment:Testing performed by : [address] [address] RDW CV 13.8 11.1 - 14.9 % MARY JANE Comment:Testing performed by : [address] [address] RDW SD 45.0 35.7 - 48.1 fL MARY JANE Comment:Testing performed by : [address] [address] NRBC abs 0.00 0.00 - 0.01 K/cumm MARY JANE Comment:Testing performed by : [address] [address] Blood 02/14/2024 11:4 3 PM CDT 02/14/2024 11:49 PM CDT us Jeremías Smith MD LAB BLOOD ORDERABLES Final Res ult [facility] [address] [facility] Department [place] [address] * aPTT (02/14/2024 11:43 PM CDT) aPTT 31 22 - 37 sec Comment: Interpretive data aPTT test has not been evaluated for monitoring heparin therapy. The anti-Xa is the preferred test. Current interpretive data was last revised on 2019. Testing performed by: [address] [address] Blood 02/14/2024 11:4 3 PM CDT 02/14/2024 11:49 PM CDT Jeremías Smith MD LAB BLOOD ORDERABLES Final Res ult Performing Organization Address City/[facility] Co de Phone Number MARY JANE [facility] [place] [address] * (ABNORMAL) Protime-INR (02/14/2024 11:43 PM CDT) PT 16.9(H) 12.0 - 14.6 sec Comment: Ref Range High Testing performed by: [address] [address] INR 1.4(H) 0.9 - 1.2 MARY JANE Comment: Ref Range High Interpretive data Oral anticoagulant therapeutic ranges: Venous thromboembolism prophylaxis or treatment: 2.0-3.0 CARDIOLOGY Standard range: 2.0-3.0 High-intensity range: 2.5-3.5 Refer to indication-specific guidelines for appropriate target ranges for prosthetic heart valve replacement. Current interpretive data was last revised on 2019. Testing performed by: [address] [address] Blood 02/14/2024 11:4 3 PM CDT 02/14/2024 11:49 PM CDT us Jeremías Smith MD LAB BLOOD ORDERABLES Final Res ult Performing Organization Address [facility] Co de Phone Number [facility] [address] [facility] [place] [address] * (ABNORMAL) Hemoglobin A1c (08/14/2023 8:47 PM CDT) Hgb A1C 8.4(H) 4.0 - 5.6 % Comment:Testing performed by : [address] [address] Estimated Average Glucose 194 mg/dL MARY JANE PHAM Comment: The ADA recommends reporting an estimated Average Glucose (eAG) with all Hemoglobin A1c results using the equation derived from a study of 507 normal and diabetic adults. ??Minority populations were underrepresented and children were not included. ?? (Diabetes Care 31:6975-7686, 2008). ??The eAG is not equivalent to a fasting glucose. Testing performed by: [address] [address] Blood 08/14/2023 8:47 PM CDT 08/14/2023 8:52 PM CDT us Philippe Mcguire MD LAB BLOOD ORDERABLES Final Result MARY JANE PHAM [address] [facility] Department [place] [address] * Lipid panel (08/14/2023 8:47 PM CDT) [facility] Cholesterol 176 30 - 199 mg/dL [...] last revised on 2017. Testing performed by: [address] [address] Triglycerides 121 <=149 mg/dL MARY JANE PHAM [...] last revised on 2017. Testing performed by: [address] [address] HDL 44 >=40 mg/dL MARY JANE Comment: [...] last revised on 2017. Testing performed by: [address] [address] LDL, calculated 108 <=129 mg/dL MARY JANE [...] last revised on 2017. Testing performed by: [address] [address] Non-HDL Cholesterol 132 mg/dL MARY JANE PHAM [...] last revised on 2017. Testing performed by: [address] [address] Chol/HDL ratio 4 MARY JANE Comment:Testing performed by : [address] [address] Blood 08/14/2023 8:47 PM CDT 08/14/2023 8:52 PM CDT us Philippe Mcguire MD LAB BLOOD ORDERABLES Final Result MARY JANE PHAM 1731 [facility] Department of Laboratories [place], [place] [id number] * Dexa Axial Skeleton Bone Density 1 or 2 Site (08/02/2022 10:53 AM CDT) Anatomical Region Laterality Modality Body N/A Radiographic Lizeth ging Narrative 08/02/2022 3:34 PM CDT Patient Name: Karly Marques Date of : 1955 Date of scan: 08/02/2022 Bone mineral density was performed on a 3Scan Discovery Densitometer. ?? Based on machine cross-calibration [...] assessment and scan interpretation were performed by aKylie Castro MD ??who is certified by the International Society of Clinical Densitometry. [id number] Khris Arthur MD IMG DXA PROCEDURES F [...] agrees with it. ACC# ??Date Time ??Exam [id number] Aug 19, 2016 14:27:00 [facility] [address] Diag Mamm, inc CAD, unilat L ?? Technologist(s): Carla Harris; ; [id number] Aug 19, 2016 15:39:00 [facility] [id number] Breast US unilateral, ltd L ACC# ??Date Time ??Exam [id number] Aug 19, 2016 14:27:00 C 05426 Diag Mamm, inc CAD, unilat L ?? Technologist(s): Carla Harris; ; [id number] Aug 19, 2016 15:39:00 [facility] [address] Breast US unilateral, ltd L EXAMINATION: ?? [...] SARABIA M.D. on Aug 19 2016 ??4:20P [id number] Procedure Note Miscellaneous, Not In File / Provider, MD Tyler - 09/17/2016 Avery DOYLE M.D. FINAL REPORT The radiology attending physician has personally reviewed this study, and has reviewed and/or edited this written report and agrees with it. [facility]# Date Time Exam [id number] Aug 19, 2016 14:27:00 [facility] [address]56 Diag Mamm, inc CAD, unilat L Technologist(s): Carla Harris; ; [id number] Aug 19, 2016 15:39:00 [facility] [address]58 Breast US unilateral, ltd L [facility]# Date Time Exam [id number] Aug 19, 2016 14:27:00 [facility] [address] Diag Mamm, inc CAD, unilat L Technologist(s): Carla Harris; ; [id number] Aug 19, 2016 15:39:00 [facility] [address] Breast US unilateral, ltd L EXAMINATION: LEFT [...] SARABIA M.D. on Aug 19 2016 4:20P [id number] us Not In File Miscellaneous IMG MAMMO PROCEDURES F inal Result from Last 3 Months or Most Recently Relevant to Health Maintenance Insurance [facility] MEDICARE SOLUTIONS MEDICARE SOLUTIONS [place] [id number] MEDICARE SOLUTIONS Advance Directives For more information, please contact: [phone] Documents on File Type Date Recorded Patient Oracle E Business Developer Expl anation ADVANCE DIRECTIVE 12/23/2021 2:49 PM Power of Stretcher Helper-Medical ADVANCE DIRECTIVE 12/23/2021 2:49 PM Living Will [...] First Alternate Health Care Agent Care Teams Candy Cutter Machine Relationship Specialty Start Date End Date Justen Gale MD [address] [address] PCP - General 10/09/17 Liu Jerez MD Consulting Physician Gastroenterology 07/28/17 [place] [address] [facility] H[address] [place] [address] Consulting Physician Pulmonary Disease 08/03/17 Khris Arthur MD 4921 [facility] [address]056 [place] [address] Medical Oncologist/Kiln Feeder Medical Oncology 10/23/17 [place] [address] [facility] [address] [place] [address] Surgeon Orthopedic Surgery 10/23/17 [place] [address] [facility] [address] [place] [address] Consulting Physician Pain Management 10/23/17 [place] [address] [facility] [address] [place] [address] Referring Physician General Surgery 01/26/18 [place] [address] [facility] [address] [place] [address] Consulting Physician Neurology 01/26/18
--- OUTSIDE RECORDS SUMMARY | 2024-05-16 20:42 | XMS_ITS | Encounter Summary ---
Author Organization [facility] Address [address] [place] [address] Phone Care Team Providers Care Maternity Floor Supervisor Name Role Phone Justen Gale MD Primary Care Provider [phone] David Roberts APRN, MUD PLANT OPERATOR Unavailable [phone] Annel Rod MD Unavailable Encounter Details Date Type Department Care Team (Late st Contact Info) Description 06/05/2020 [facility] [address] [place] [address] Pili Elkins APRN, MUD PLANT OPERATOR #[address] [address] Frequency of micturition Social History [...] COVID-19? No / Unsure 2020 11:37 AM MECHANICAL INTEGRITY ENGINEER documented as of this encounter Plan of Treatment Upcoming Encounters Date Type Department Care Team (Late st Contact Info) Description 06/25/2024 2:45 PM MECHANICAL INTEGRITY ENGINEER Office Visit [facility] Endocrinology - [place] #2 [place] [address] Annel Rod MD #[address] [address] 06/28/2024 1:15 PM MECHANICAL INTEGRITY ENGINEER Office Visit [facility] Endocrinology [facility] #2 [place] [address] Annel Rod MD #[address] [address] documented as of this encounter Procedures Procedure Name Priority Date/Time Associated Diagnosis Comments URINALYSIS REFLEX IF INDICATED BY ABNORMAL RESULTS Routine 06/05/2020 4:45 PM MECHANICAL INTEGRITY ENGINEER Frequency of micturition documented in this encounter Results * (ABNORMAL) URINALYSIS REFLEX IF INDICATED BY ABNORMAL RESULTS (06/05/2020 4:45 PM MECHANICAL INTEGRITY ENGINEER) SPECIFIC GRAVITY 1.020 1.003 - 1.030 06/05/2020 5:19 PM MECHANICAL INTEGRITY ENGINEER [facility] URINE PH 5.0 5.0 - 9.0 06/05/2020 5:19 PM MECHANICAL INTEGRITY ENGINEER [facility] WBC ESTERASE Negative Negative 06/05/2020 5:19 PM MECHANICAL INTEGRITY ENGINEER [facility] NITRITE Negative Negative 06/05/2020 5:19 PM MECHANICAL INTEGRITY ENGINEER [facility] PROTEIN, RANDOM URINE Negative Negative 06/05/2020 5:19 PM MECHANICAL INTEGRITY ENGINEER [facility] URINE GLUCOSE, QUAL Negative Negative 06/05/2020 5:19 PM MECHANICAL INTEGRITY ENGINEER [facility] URINE KETONES Negative Negative 06/05/2020 5:19 PM MECHANICAL INTEGRITY ENGINEER [facility] UROBILINOGEN Normal Normal mg/dL 06/05/2020 5:19 PM MECHANICAL INTEGRITY ENGINEER [facility] URINE BILIRUBIN Negative Negative 5:19 PM MECHANICAL INTEGRITY ENGINEER [facility] URINE BLOOD 25 /uL(A) Negative leandro/ul 06/05/2020 5:19 PM MECHANICAL INTEGRITY ENGINEER [facility] URINALYSIS COLOR Yellow 06/05/19 5:19 PM MECHANICAL INTEGRITY ENGINEER [facility] URINALYSIS CLARITY Clear 06/05/2020 5:19 PM MECHANICAL INTEGRITY ENGINEER [facility] WBC (Urine) 0-5 Negative, 0-5 /hpf 06/05/2020 5:19 PM MECHANICAL INTEGRITY ENGINEER [facility] URINE RBC'S 3-5(A) Negative, 0-2 /hpf 06/05/2020 5:19 PM MECHANICAL INTEGRITY ENGINEER [facility] EPITHELIAL CELLS Small amount /lpf 2020 5:19 PM MECHANICAL INTEGRITY ENGINEER [facility] BACTERIA, URINE Few(A) Negative /hpf 06/05/2020 5:19 PM MECHANICAL INTEGRITY ENGINEER [facility] Urine URINE SPECIMEN / Unknown Non-Phlebotomy Collection / Unknown 06/05/2020 4:45 PM MECHANICAL INTEGRITY ENGINEER 06/05/2020 5:00 PM MECHANICAL INTEGRITY ENGINEER us Pili Elkins DIRECTOR OF SECURITIES AND REAL ESTATE, NETTA URINE ORDERABLES Fin al Result [facility] [address] [place] [address] documented in this encounter Visit Diagnoses Diagnosis Frequency of micturition Urinary frequency documented in this encounter Additional Health Concerns Assessment Noted Time PHQ-9 Depression Total Score: 0 09/08/19 1:00 PM CDT documented as of this encounter Care Teams Maternity Floor Supervisor Relationship Specialty Start Date End Date Justen Gale MD #[address] [address] PCP - General Family Medicine 10/17/17 David Roberts APRN, MUD PLANT OPERATOR #[address] [place] [address] Nurse Practitioner Advanced Practice Nurse 01/31/22 Annel Rod MD #[address] [address] Consulting Physician Endocrinology 07/01/22 documented as of this encounter
--- OUTSIDE RECORDS SUMMARY | 2024-05-16 20:42 | XMS_ITS | Encounter Summary ---
Author Organization [facility] Address [address] [place] [address] Phone Care Team Providers Care Flight Test Shop Mechanic Name Role Phone Justen Gale MD Primary Care Provider [phone] David Roberts APRN, IS ANALYST Unavailable [phone] Annel Rod MD Unavailable Reason for Visit * Reason Comments Medication Refill Encounter Details Date Type Department Care Team (Late st Contact Info) Description 02/17/2021 Refill [facility] - [facility] #2 [place] [id number] Justen Gale MD #[address] [address] Medication Refill Social History Tobacco Use Types [...] 06/05/20 Office Visit Pili Elkins APRN, NETTA [facility] [place] [place] Showing recent visits within past 365 days and meeting all other requirements Future Appointments Date Type Provider Dept 03/02/21 Appointment Vince Hermosillo MD [facility] Showing future appointments within next 90 days and meeting all other requirements documented in this encounter Plan of Treatment Upcoming Encounters Date Type Department Care Team (Late st Contact Info) Description 06/25/2024 2:45 PM ELECTRICIAN ASSISTANT Office Visit [facility] Endocrinology - [place] #2 [place] [address] Annel Rod MD #[address] [place] [address] 06/28/2024 1:15 PM ELECTRICIAN ASSISTANT Office Visit [facility] Endocrinology - [place] #2 [place] [address] Annel Rod MD #[address] [place] [address] documented as of this encounter Visit Diagnoses Not on filedocumented in this encounter Additional Health Concerns Assessment Noted Time PHQ-9 Depression Total Score: 0 07/21/19 21 3:00 PM CDT documented as of this encounter Care Teams Flight Test Shop Mechanic Relationship Specialty Start Date End Date Justen Gale MD #[address] [place] [address] PCP - General Family Medicine 10/17/17 David Roberts, DOG HAIR CLIPPER, IS ANALYST #2 [place] [address] Nurse Practitioner Advanced Practice Nurse 01/31/22 Annel Rod MD #[address] [place] [address] Consulting Physician Endocrinology 07/01/22 documented as of this encounter
--- OUTSIDE RECORDS SUMMARY | 2024-05-16 20:42 | XMS_ITS | Encounter Summary ---
Author Organization [facility] Address [address] [place] [address] Phone Care Team Providers Care Patch Finisher Name Role Phone Justen Gale MD Primary Care Provider [phone] David Roberts APRN, SOCIAL INSURANCE ANALYST Unavailable [phone] Annel Rod MD Unavailable Reason for Visit * Reason Comments Medication Refill Encounter Details Date Type Department Care Team (Late st Contact Info) Description 07/14/2022 Refill [facility] - Family Medicine [facility] #2 [place] [address] Justen Gale MD #[address] [address] Medication Refill Social History Tobacco Use Types [...] st Contact Info) Description 06/25/2024 2:45 PM CLERGY MEMBER Office Visit [facility] Endocrinology [facility] #2 [place] [address] Annel Rod MD #[address] [address] 06/28/2024 1:15 PM CLERGY MEMBER Office Visit [facility] Endocrinology [facility] #2 [place] [address] Annel Rod MD #[address] [address] documented as of this encounter Visit Diagnoses Not on filedocumented in this encounter Additional Health Concerns Assessment Noted Time PHQ-9 Depression Total Score: 0 07/21/19 21 3:00 PM CDT documented as of this encounter Care Teams Patch Finisher Relationship Specialty Start Date End Date Justen Gale MD #2 [facility] [address] [place] [address] PCP - General Family Medicine 10/17/17 David Roberts APRN, SOCIAL INSURANCE ANALYST #2 [place] [address] Nurse Practitioner Advanced Practice Nurse 01/31/22 Annel Rod MD #[address] [id number] Consulting Physician Endocrinology 07/01/22 documented as of this encounter
--- OUTSIDE RECORDS SUMMARY | 2024-05-16 20:42 | XMS_ITS | Encounter Summary ---
Author Organization [facility] Address [address] [place] [address] Phone Care Team Providers Care Environmental Compliance Technician Name Role Phone Justen Gale MD Primary Care Provider [phone] David Roberts APRN, INDUSTRIAL ENGINEERING Unavailable [phone] Annel Rod MD Unavailable Reason for Visit * Reason Comments Medication Refill Encounter Details Date Type Department Care Team (Late st Contact Info) Description 08/30/2022 Refill [facility] Family Medicine [facility] #2 [place] [address] Justen Gale MD #[address] [address] Medication Refill Social History Tobacco Use Types [...] 07/05/22 Office Visit Pili Elkins APRN, CNP [facility] [place] 05/02/22 Office Visit Justen Gale MD [facility] [place] 03/03/22 Office Visit Pili Elkins APRN, NETTA [facility] [place] 01/03/22 Office Visit Dannielle Berg PAC [facility] [place] 12/07/21 Office Visit Pili Elkins APRN, NETTA [facility] [place] 11/09/21 Office Visit Pili Elkins APRN, NETTA [facility] [place] 10/08/21 Office Visit Angelito Alegria APRN, NETTA [facility] [place] 08/30/21 Office Visit Justen Gale MD [facility] Showing recent visits within past 365 days and meeting all other requirements Future Appointments No visits were found meeting these conditions. Showing future appointments within next 90 days and meeting all other requirements documented in this encounter Plan of Treatment Upcoming Encounters Date Type Department Care Team (Late st Contact Info) Description 06/25/2024 2:45 PM EMBEDDED SOFTWARE PROGRAMMER Office Visit [facility] - Endocrinology - [place] #2 [place] [phone] Annel Rod MD #[address] [address] 06/28/2024 1:15 PM EMBEDDED SOFTWARE PROGRAMMER Office Visit [facility] - Endocrinology [facility] #2 [place] [address] Annel Rod MD #[address] [address] documented as of this encounter Visit Diagnoses Not on filedocumented in this encounter Additional Health Concerns Assessment Noted Time PHQ-9 Depression Total Score: 0 07/21/19 21 3:00 PM CDT documented as of this encounter Care Teams Environmental Compliance Technician Relationship Specialty Start Date End Date Justen Gale MD #[address] [address] PCP - General Family Medicine 10/17/17 David Roberts APRN, INDUSTRIAL ENGINEERING #[address] [place] [address] Nurse Practitioner Advanced Practice Nurse 01/31/22 Annel Rod MD #[address] [address] Consulting Physician Endocrinology 07/01/22 documented as of this encounter
--- OUTSIDE RECORDS SUMMARY | 2024-05-16 20:42 | XMS_ITS | Encounter Summary ---
Author Organization [facility] Address [address] [place] [address] Phone Care Team Providers Care Shop Helper Name Role Phone Justen Gale MD Primary Care Provider [phone] David Roberts APRN, REAL ESTATE SALES SUPERVISOR Unavailable [phone] Annel Rod MD Unavailable Reason for Visit * Reason Onset Date Comments Sore Throat 06/29/2020 Encounter Details Date Type Department Care Team (Late st Contact Info) Description 06/29/2020 Telephone [facility] [place] #[address] [place] [address] Justen Gale MD #[address] [address] Sore Throat Social History Tobacco Use Types [...] COVID-19? No / Unsure 06/29/2020 8:43 AM EVAPORATOR documented as of this encounter Miscellaneous Notes * Telephone Encounter - Gail Lucero RN - 06/29/2020 3:53 PM CST Attempted to call mailbox is full. Pt does not need testing ORATOR * Telephone Encounter - Vince Hermosillo MD - 06/29/2020 3:13 PM CST No covid testing needed. If the er thought that it was warranted then they would have done this. ORATOR * Telephone Encounter - Marlys Sorensen RN - 06/29/2020 8:36 AM CST Patient calling. Patient is calling to schedule Hospital/ED/Prompt-Care follow up appointment. Hospital/ED/Prompt-Care Site: [facility] ED Records Requested: Yes Reason for Hospitalization/ED/Prompt-Care [...] to be helping. Pain (0-10): ST - 10 Temp: Denies Treatment / Response: Nothing LMP [...] f/up and yearly PAP appointments? Please advise. ORATOR documented in this encounter Plan of Treatment Upcoming Encounters Date Type Department Care Team (Late st Contact Info) Description 06/25/2024 2:45 PM EVAPORATOR Office Visit [facility] - Endocrinology - [place] #2 [place] [address] Annel Rod MD #[address] [place] [address] 06/28/2024 1:15 PM EVAPORATOR Office Visit [facility] Endocrinology - [place] #2 [place] [address] Annel Rod MD #2 [facility] [address] [place] [address] documented as of this encounter Visit Diagnoses Not on filedocumented in this encounter Additional Health Concerns Assessment Noted Time PHQ-9 Depression Total Score: 0 09/08/19 19 1:00 PM CDT documented as of this encounter Care Teams Shop Helper Relationship Specialty Start Date End Date Justen Gale MD #2 [facility] [address] [place] [address] PCP - General Family Medicine 10/17/17 David Roberts APRN, NETTA #2 [facility] [place] [address] Nurse Practitioner Advanced Practice Nurse 01/31/22 Annel Rod MD #[address] [address] Consulting Physician Endocrinology 07/01/22 documented as of this encounter
--- OUTSIDE RECORDS SUMMARY | 2024-05-16 20:42 | XMS_ITS | Encounter Summary ---
Author Organization [facility] Address [address] [place] [address] Phone Care Team Providers Care Geophysical Support Specialist Name Role Phone Justen Gale MD Primary Care Provider [phone] David Roberts APRN, CASE WORK AIDE Unavailable [phone] Annel Rod MD Unavailable Reason for Visit * Reason Comments Medication Refill Encounter Details Date Type Department Care Team (Late st Contact Info) Description 02/07/2020 Refill [facility] [address] [place] [address] Justen Gale MD [address] [address] Medication Refill Social History Tobacco Use Types [...] st Contact Info) Description 06/25/2024 2:45 PM CLAY SHOP SUPERVISOR Office Visit [facility] Endocrinology - [place] #2 [place] [address] Annel Rod MD #2 [facility] [address] [place] [address] 06/28/2024 1:15 PM CLAY SHOP SUPERVISOR Office Visit [facility] Endocrinology - [place] #2 [place] [address] Annel Rod MD #2 [facility] [address] [place] [address] documented as of this encounter Visit Diagnoses Not on filedocumented in this encounter Additional Health Concerns Assessment Noted Time PHQ-9 Depression Total Score: 0 09/08/19 19 1:00 PM CDT documented as of this encounter Care Teams Geophysical Support Specialist Relationship Specialty Start Date End Date Justen Gale MD #2 [facility] [address] [place] [address] PCP - General Family Medicine 10/17/17 David Roberts APRN, CASE WORK AIDE #2 [place] [address] Nurse Practitioner Advanced Practice Nurse 01/31/22 Annel Rod MD #[address] [address] Consulting Physician Endocrinology 07/01/22 documented as of this encounter
--- OUTSIDE RECORDS SUMMARY | 2024-05-16 20:42 | XMS_ITS | Encounter Summary ---
Author Organization [facility] Healthcare Address [address] [place] [address] Care Team Providers Care Ground Operations Crew Member Name Role Phone Liu Jerez MD Unavailable Albert Corbin MD Unavailable Justen Gale MD Primary Care Provider [phone] Khris Arthur MD Unavailable [phone] Ko Melendez MD Unavailable John Paul Moyer MD Unavailable Annel Rod MD Unavailable Anali MARSHALL MD, Carlos M. Unavailable [phone] Encounter Details Date Type Department Care Team (Late st Contact Info) Description 05/14/2024 4:45 PM [employer] Lab [facility] - Lab Collection [address] [facility] [address] [place] [address] Malignant neoplasm of upper-inner quadrant of left breast in female, estrogen receptor positive (HCC) Social History Tobacco Use Types Packs/Day Years Used Date Smoking Tobacco: Former Smokeless Tobacco: Never Comments:remote tobacco use Alcohol Use Standard Drinks/Week Comments No 0 (1 standard drink = 0.6 oz pur e alcohol) [facility] Utilities Answer Date Recorded In the [...] Legal Sex Female 12:24 AM [employer] Gender Identity Not on file Sexual Orientation Not on file documented as of this encounter Plan of Treatment Not on file documented as of this encounter Procedures Procedure Name Priority Date/Time Associated Diagnosis Comments URINALYSIS AND REFLEX TO MICROSCOPIC AND CULTURE Routine 05/14/2024 4:50 PM [employer] Malignant neoplasm of upper-inner quadrant of left breast in female, estrogen receptor positive (HCC) URINALYSIS, MICROSCOPIC ONLY Routine 05/14/2024 4:50 PM [employer] Malignant neoplasm of upper-inner quadrant of left breast in female, estrogen receptor positive (HCC) documented in this encounter Results * (ABNORMAL) Urinalysis, microscopic only (05/14/2024 4:50 PM [employer]) WBC, ur 0-5 0 - 5 /HPF RBC, ur 0-2 0 - 2 /HPF [facility] Epithelial cells, squamous, ur 1-5 0 - 5 /HPF [facility] Bacteria, ur Trace(A) [facility] Mucous, ur Present(A) [facility] Culture Reflex Comment Reflex conditions for urine culture (WBC >10) not met. [facility] Urine, clean voided 05/14/2024 4:50 PM [employer] 05/14/2024 7:18 PM [employer] Khris Arthur MD LAB URINE ORDERABLES Final Result Performing Organization Address City/[facility]/ZIP Co de Phone Number [facility] [place] [address] * (ABNORMAL) Urinalysis reflex to microscopic and culture Urine, clean voided (05/14/2024 4:50 PM [employer]) Color, ur Straw Yellow Clarity, ur Clear Clear [facility] Specific gravity, ur 1.025 1.003 - 1.030 [facility] pH, urine 5.5 [facility] Comment: Interpretive Data ? Urine pH is affected by diet, medications, systemic acid-base disturbances, and renal tubular function. ??pH may affect urinary stone formation. ??For example, urine pH below 6.0 may help reduce the tendency for calcium phosphate stones and pH greater than 6.0 may reduce the tendency for uric acid stone formation. Source: [facility] Current Interpretive Data was last revised on 2017 Protein, ur ql Trace Negative [facility] Glucose, ur ql Negative Negative [facility] Ketones, ur Negative Negative [facility] Bilirubin, ur Negative Negative [facility] Blood, ur Trace(A) Negative [facility] Urobilinogen, ur <2.0 <2.0 mg/dL [facility] Nitrite, ur Negative Negative [facility] Leukocyte esterase, ur Negative Negative [facility] UA reflex comment Reflex to microscopic UA will be performed. [facility] Urine, clean voided 05/14/2024 4:50 PM [employer] 05/14/2024 7:18 PM [employer] Khris Arthur MD LAB MICROBIOLOGY - G ENERAL ORDERABLES Final Result Performing Organization Address [facility]/ZIP Co de Phone Number [facility] [place] [address] documented in this encounter Visit Diagnoses Diagnosis Malignant neoplasm of upper-inner quadrant of left breast in female, estrogen receptor positive (HCC) documented in this encounter Care Teams Ground Operations Crew Member Relationship Specialty Start Date End Date Justen Gale MD [facility] [address] [place] [address] PCP - General 10/09/17 Liu Jerez MD Consulting Physician Gastroenterology 07/28/17 [place] [id number] [facility] [address] [place] [address] Consulting Physician Pulmonary Disease 08/03/17 Khris Arthur MD [address] [facility] [address] [place] [address] Medical Oncologist/Sterile Supervisor Medical Oncology 10/23/17 [place] [address] [facility] [address] [place] [address] Surgeon Orthopedic Surgery 10/23/17 [place] [address] [facility] [address] [place] [address] Consulting Physician Pain Management 10/23/17 [place] [address] [facility] [address] [place] [address] Referring Physician General Surgery 01/26/18 [place] [address] [facility] [address] [place] [address] Consulting Physician Neurology 01/26/18 documented as of this encounter
--- OUTSIDE RECORDS SUMMARY | 2024-05-16 20:42 | XMS_ITS | Referral Summary ---
Author Organization [facility] Address [address] [place] [address] Care Team Providers Care Grounds Maintenance Supervisor Name Role Phone Liu Jerez MD Unavailable Albert Corbin MD Unavailable [phone] Justen Gale MD Primary Care Provider Khris Arthur MD Unavailable [phone] Ko Melendez MD Unavailable John Paul Moyer MD Unavailable Annel Rod MD Unavailable Anali MARSHALL MD, Carlos M. Unavailable Encounters Date Type Department Care Team Description 05/16/2024 Telephone [facility] Oncology [address] [place] [address] 8 [place] [address] Jeanine Ba RMA 05/16/2024 Orders Only [facility]cology [address] [place] [address] 8 [place] [address] Radha Mcgrath RN History of breast cancer (Primary Dx); Axillary pain, left 05/16/2024 Orders Only [facility] [address] [place] [address] 8 [place] [phone] Khris Arthur MD Swelling of left upper extremity (Primary Dx); Swelling of left lower extremity 05/14/2024 4:45 PM CONSULTING ENGINEER Lab [facility] - Lab Collection [address] [place] [address] Floor 5 [place] [address] Malignant neoplasm of upper-inner quadrant of left breast in female, estrogen receptor positive (HCC) 05/14/2024 4:36 PM CONSULTING ENGINEER - 05/14/2024 11:59 PM CONSULTING ENGINEER Hospital Encounter [facility] - Diagnostic Imaging [address] [place] [address] 8 [place] [address] Malignant neoplasm of upper-inner quadrant of left breast in female, estrogen receptor positive (HCC) Discharge Disposition: Discharge to home or self care 05/14/2024 3:30 PM CONSULTING ENGINEER Office Visit [facility] Oncology [address] [place] [address] 8 [place] [phone] Khris Arthur MD Swelling of right lower extremity (Primary Dx); Malignant neoplasm of upper-inner quadrant of left breast in female, estrogen receptor positive (HCC); Swelling of right upper extremity; Swelling of left upper extremity; Swelling of left lower extremity 04/22/2024 Telephone [facility] Oncology [address] [place] [phone] Radha Mcgrath RN 04/19/[address] [phone] Lalita Braun RN Scheduling Appointments 02/15/2024 2:22 AM CDT - 02/15/2024 5:58 AM CDT Emergency [facility] Emergency Department [address] [place] [address] Jeremías Smith MD Myalgia (Primary Dx) Discharge [...] Taken at 2100 Active blood glucose diagnostic (OneTouch Ultra Test) strip [...] 09/12/2021 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) 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 Patient unable to answer 08/15/2023 Do [...] on file Legal Sex Female 12:24 AM CONSULTING ENGINEER Gender Identity Not on file Sexual Orientation Not on file Last Filed Vital Signs Vital Sign Reading Time Taken Comments Blood Pressure 131/78 05/14/2024 3:40 PM CONSULTING ENGINEER Pulse 80 05/14/2024 3:40 PM CONSULTING ENGINEER Temperature 36.8 ??C (98.3 ??F) 05/14/2024 3:40 PM CS T Respiratory Rate 18 05/14/2024 3:40 PM CONSULTING ENGINEER Oxygen Saturation 99% 05/14/2024 3:40 PM CONSULTING ENGINEER Inhaled Oxygen Concentration - - Weight 121.1 kg (267 lb) 05/14/2024 3:40 PM CONSULTING ENGINEER Height 154.9 cm (5' 1 ) 05/14/2024 3:40 PM CONSULTING ENGINEER Body Mass Index 50.45 05/14/2024 3:40 PM CONSULTING ENGINEER Plan of Treatment Not on file Procedures Procedure Name Priority Date/Time Associated Diagnosis Comments URINALYSIS, MICROSCOPIC ONLY Routine 05/14/2024 4:50 PM CONSULTING ENGINEER Malignant neoplasm of upper-inner quadrant of left breast in female, estrogen receptor positive (HCC) URINALYSIS AND REFLEX TO MICROSCOPIC AND CULTURE Routine 05/14/2024 4:50 PM CONSULTING ENGINEER Malignant neoplasm of upper-inner quadrant of left breast in female, estrogen receptor positive (HCC) XR RIBS LEFT 2 VIEWS Schedule Routine, Read Routine (OP Routine) 05/14/2024 4:44 PM CONSULTING ENGINEER Malignant neoplasm of upper-inner quadrant of left [...] culture Urine, clean voided (05/14/2024 4:50 PM CONSULTING ENGINEER) Color, ur Straw Yellow Clarity, ur Clear Clear [facility] Specific gravity, ur 1.025 1.003 - 1.030 [facility] pH, urine 5.5 [facility] Comment: Interpretive Data ? Urine pH is affected by diet, medications, systemic acid-base disturbances, and renal tubular function. ??pH may affect urinary stone formation. ??For example, urine pH below 6.0 may help reduce the tendency for calcium phosphate stones and pH greater than 6.0 may reduce the tendency for uric acid stone formation. Source: [facility] [employer] Current Interpretive Data was last revised on 2017 Protein, ur ql Trace Negative [facility] Glucose, ur ql Negative Negative [facility] Ketones, ur Negative Negative [facility] Bilirubin, ur Negative Negative [facility] Blood, ur Trace(A) Negative [facility] Urobilinogen, ur <2.0 <2.0 mg/dL [facility] Nitrite, ur Negative Negative [facility] Leukocyte esterase, ur Negative Negative [facility] UA reflex comment Reflex to microscopic UA will be performed. [facility] Urine, clean voided 05/14/2024 4:50 PM CONSULTING ENGINEER 05/14/2024 7:18 PM CONSULTING ENGINEER Khris Arthur MD LAB MICROBIOLOGY - G ENERAL ORDERABLES Final Result MARY JANE [facility] Department [place] [address] * (ABNORMAL) Urinalysis, microscopic only (05/14/2024 4:50 PM CONSULTING ENGINEER) WBC, ur 0-5 0 - 5 /HPF RBC, ur 0-2 0 - 2 /HPF [facility] Epithelial cells, squamous, ur 1-5 0 - 5 /HPF [facility] Bacteria, ur Trace(A) [facility] Mucous, ur Present(A) [facility] Culture Reflex Comment Reflex conditions for urine culture (WBC >10) not met. [facility] Urine, clean voided 05/14/2024 4:50 PM CONSULTING ENGINEER 05/14/2024 7:18 PM CONSULTING ENGINEER Khris Arthur MD LAB URINE ORDERABLES Final Result Performing Organization Address [facility] de Phone Number MARY JANE [facility] Department [place] [address] * XR Ribs Left 2 Views (05/14/2024 4:44 PM CONSULTING ENGINEER) Anatomical Region Laterality Modality Rib, Chest Left Digital Radiogra phy 05/14/2024 4:54 PM CONSULTING ENGINEER Impressions 05/14/2024 4:54 PM CONSULTING ENGINEER 1. ??No displaced left rib fracture. Electronically signed by: Santiago Gan D.O. Narrative 05/14/2024 4:54 PM CONSULTING ENGINEER EXAMINATION: XR RIBS LEFT 2 VIEWS HISTORY: [...] fracture. Electronically signed by: Santiago Gan D.O. Khris Arthur MD IMG XR PROCEDURES Fi nal Result * (ABNORMAL) Urinalysis reflex to microscopic and culture Urine, in and out catheter (02/15/2024 1:19AM CDT) Color, ur Yellow Yellow Comment:Testing performed by : [address] [address] Clarity, ur Clear Clear MARY JANE Comment:Testing performed by : [address] [address] Specific gravity, ur 1.023 1.003 - 1.030 MARY JANE Comment:Testing performed by : [address] [address] pH, urine 5.5 MARY JANE Comment: Interpretive Data ? Urine pH is affected by diet, medications, systemic acid-base disturbances, and renal tubular function. ??pH may affect urinary stone formation. ??For example, urine pH below 6.0 may help reduce the tendency for calcium phosphate stones and pH greater than 6.0 may reduce the tendency for uric acid stone formation. Source: [employer] Current Interpretive Data was last revised on 2017 Testing performed by: [address] [address] Protein, ur ql Negative Negative MARY JANE Comment:Testing performed by : [address] [address] Glucose, ur ql Trace(A) Negative MARY JANE Comment:Testing performed by : [address] [address] Ketones, ur Negative Negative MARY JANE PHAM Comment:Testing performed by : [facility], [address] [place] [address], [place]., [address] Bilirubin, ur Negative Negative MARY JANE PHAM Comment:Testing performed by : [facility], [address] [place] [address], [place]., [address] Blood, ur 1+(A) Negative MARY JANE PHAM Comment:Testing performed by : [address], [place]., [address] Urobilinogen, ur <2.0 <2.0 mg/dL MARY JANE PHAM Comment:Testing performed by : [address], [place]., [address] Nitrite, ur Negative Negative MRAY JANE PHAM Comment:Testing performed by : [address], [place]., [address] Leukocyte esterase, ur Negative Negative MARY JANE PHAM Comment:Testing performed by : [address], [place]., [address] UA reflex comment Reflex to microscopic UA will be performed. MARY JANE PHAM Comment:Testing performed by : [address], [place]., [address] Urine, in and out catheter 02/15/2024 1:19 AM CDT 02/15/2024 1:23 AM CDT us Jeremías Smith MD LAB MICROBIOLOGY - GENERAL ORD ERABLES Final Result MARY JANE [address] [facility] Department [place] [address] * (ABNORMAL) Urinalysis, microscopic only (02/15/2024 1:19 AM CDT) WBC, ur 0-5 0 - 5 /HPF Comment:Testing performed by : [address], [place]., [address] RBC, ur 3-5(A) 0 - 2 /HPF MARY JANE PHAM Comment:Testing performed by : [address] [address] Epithelial cells, squamous, ur 1-5 0 - 5 /HPF MARY JANE PHAM Comment:Testing performed by : [facility], [address] [place] [address]., [address] Mucous, ur Present(A) MARY JANE Comment:Testing performed by : [address] [address] Hyaline casts, ur 1-5 0 - 10 /LPF MARY JANE Comment:Testing performed by : [address] [address] Culture Reflex Comment Reflex conditions for urine culture (WBC >10) not met. MARY JANE Comment:Testing performed by : [address] [address] Urine, in and out catheter 02/15/2024 1:19 AM CDT 02/15/2024 1:23 AM CDT us Jeremías Smith MD LAB URINE ORDERABLES Final Res ult MARY JANE [address] [facility] Department [place] [address] * eGFR (02/15/2024 1:09 AM CDT) eGFR [...] was last reviewed 2021. Testing performed by: [address] [address] Blood 02/15/2024 1:09 AM CDT 02/15/2024 1:15 AM CDT Jeremías Smith MD LAB BLOOD ORDERABLES Final Res ult Performing Organization Address City/[facility] [address] [facility]/ZIP Co de Phone Number [address] [place] [address] * Creatine kinase (CK), total (02/15/2024 1:09 AM CDT) CK 137 30 - 200 Units/L Comment:Testing performed by : [address] [address] Blood 02/15/2024 1:09 AM CDT 02/15/2024 4:55 AM CDT Jeremías Smith MD LAB BLOOD ORDERABLES Final Res ult Performing Organization Address [facility]/ZIP Co de Phone Number [address] [place] [address] * (ABNORMAL) Comprehensive metabolic panel (02/15/2024 1:09 AM CDT) Sodium 137 135 - 145 mmol/L Comment:Testing performed by : [address] [address] Potassium, pl 4.3 3.3 - 4.9 mmol/L MARY JANE Comment:Testing performed by : [address] [address] Chloride 100 97 - 110 mmol/L MARY JANE Comment:Testing performed by : [address] [address] CO2 29 22 - 32 mmol/L MARY JANE Comment:Testing performed by : [address] [address] Anion gap 8 2 - 15 mmol/L MARY JANE Comment:Testing performed by : [address] [address] BUN 22 6 - 25 mg/dL MARY JANE Comment:Testing performed by : [address] [address] Creatinine 0.60 0.60 - 1.10 mg/dL [facility] Comment:Testing performed by : [address], [place]., [address] Glucose 231(H) 70 - 199 mg/dL MARY [...] was last revised 2022. Testing performed by: [address] [address] Calcium 10.3 8.5 - 10.3 mg/dL MARY JANE Comment:Testing performed by : [address] [address] Bilirubin, total 0.4 0.1 - 1.2 mg/dL [facility] Comment:Testing performed by : [address] [address] Protein, pl 8.2 6.5 - 8.5 g/dL MARY JANE Comment:Testing performed by : [address] [address] Albumin 3.9 3.5 - 5.0 g/dL MARY JANE Comment:Testing performed by : [address] [address] Alk phos 74 40 - 130 Units/L MARY JANE Comment:Testing performed by : [address] [address] ALT 18 7 - 45 Units/L MARY JANE Comment:Testing performed by : [address] [address] AST 16 10 - 45 Units/L MARY JANE Comment:Testing performed by : [address] [address] Blood 02/15/2024 1:09 AM CDT 02/15/2024 1:15 AM CDT us Jeremías Smith MD LAB BLOOD ORDERABLES Final Res ult MARY JANE [address] [facility] Department [place] [address] * Influenza A/B, RSV, and COVID-19 PCR Nasopharyngeal (02/14/2024 11:43 PM CDT) COVID-19 RNA Negative Negative Comment:Testing performed by : [address] [address] Influenza A RNA Negative Negative MARY JANE Comment:Testing performed by : [address] [address] Influenza B RNA Negative Negative MARY JANE Comment:Testing performed by : [address] [address] RSV RNA Negative Negative MARY JANE Comment: Interpretive data: Testing performed by [facility]. This test is performed using the [employer] Xpert Xpress CoV-2/Flu/RSV plus assay. This is a multiplex, real-time reverse transcriptase PCR assay intended for the qualitative detection of nucleic acid from SARS-CoV-2, influenza A, influenza B, and respiratory syncytial virus. This assay has been cleared by the [place] Food and Drug administration. The performance characteristics have been verified by the [facility]. ??Results must be considered in the clinical context, and a negative result does not rule out infection. Interpretive Data last revised 2023 Testing performed by: [address] [place] [address] Nasopharyngeal 02/14/2024 11 :43 PM CDT 02/14/2024 11:49 PM CDT Narrative MARY JANE - 02/15/2024 12:35 AM CDT Is the Patient experiencing symptoms consistent with COVID?->Yes us Jeremías Smith MD LAB MICROBIOLOGY - GENERAL ORD ERABLES Final Result [facility] [address] [facility] Department [place] [address] * Differential, auto (02/14/2024 11:43 PM CDT) Neutrophil abs 6.4 1.5 - 6.5 K/cumm Comment:Testing performed by : [address] [address] Imm gran abs 0.1 0.0 - 0.1 K/cumm MARY JANE Comment:Testing performed by : [address] [address] Lymphocyte abs 2.5 0.8 - 3.3 K/cumm MARY JANE Comment:Testing performed by : [address] [address] Monocyte abs 0.7 0.2 - 0.8 K/cumm MARY JANE Comment:Testing performed by : [address] [address] Eosinophil abs 0.3 0.0 - 0.5 K/cumm MARY JANE Comment:Testing performed by : [address] [address] Basophil abs 0.0 0.0 - 0.1 K/cumm MARY JANE Comment:Testing performed by : [address] [address] Neutrophil pct 63.7 % MARY JANE Comment: Interpretive Data Percent cell count reference ranges are not reported, since discordance with absolute values may lead to misinterpretation of CBC data. Current Interpretive Data was last revised on 2017. Testing performed by: [address] [address] Imm gran pct 0.5 % [facility] Comment: Interpretive Data Percent cell count reference ranges are not reported, since discordance with absolute values may lead to misinterpretation of CBC data. Current Interpretive Data was last revised on 2017. Testing performed by: [address] [address] Lymphocyte pct 24.7 % [facility] Comment: Interpretive Data Percent cell count reference ranges are not reported, since discordance with absolute values may lead to misinterpretation of CBC data. Current Interpretive Data was last revised on 2017. Testing performed by: [address] [address] Monocyte pct 7.4 % [facility] Comment: Interpretive Data Percent cell count reference ranges are not reported, since discordance with absolute values may lead to misinterpretation of CBC data. Current Interpretive Data was last revised on 2017. Testing performed by: [address] [address] Eosinophil pct 3.3 % [facility] Comment: Interpretive Data Percent cell count reference ranges are not reported, since discordance with absolute values may lead to misinterpretation of CBC data. Current Interpretive Data was last revised on 2017. Testing performed by: [address] [address] Basophil pct 0.4 % [facility] Comment: Interpretive Data Percent cell count reference ranges are not reported, since discordance with absolute values may lead to misinterpretation of CBC data. Current Interpretive Data was last revised on 2017. Testing performed by: [address] [address] Blood 02/14/2024 11:4 3 PM CDT 02/14/2024 11:49 PM CDT us Jeremías Smith MD LAB BLOOD ORDERABLES Final Res ult MARY JANE [address] [facility] Department [place] [address] * (ABNORMAL) CBC with auto differential (02/14/2024 11:43 PM CDT) [facility] WBC 10.0(H) 3.8 - 9.9 K/cumm Comment:Testing performed by : [address], [address] Hgb 13.7 11.9 - 15.5 g/dL MARY JANE Comment:Testing performed by : [address] [address] Hct 42.4 35.6 - 45.5 % MARY JANE Comment:Testing performed by : [address], [address] Plt 273 150 - 400 K/cumm MARY JANE Comment:Testing performed by : [address], [address] MPV 10.3 9.1 - 12.3 fL MARY JANE Comment:Testing performed by : [address], [address] RBC 4.73 3.90 - 5.20 M/cumm MARY JANE Comment:Testing performed by : [address], [address] MCV 89.6 81.3 - 96.4 fL MARY JANE Comment:Testing performed by : [address], [address] MCH 29.0 27.1 - 33.3 pg MARY JANE Comment:Testing performed by : [address], [address] MCHC 32.3 32.3 - 35.7 g/dL MARY JANE Comment:Testing performed by : [address], [address] RDW CV 13.8 11.1 - 14.9 % MARY JANE Comment:Testing performed by : [address], [address] RDW SD 45.0 35.7 - 48.1 fL MARY JANE Comment:Testing performed by : [address], [address] NRBC abs 0.00 0.00 - 0.01 K/cumm MARY JANE Comment:Testing performed by : [address] [address] Blood 02/14/2024 11:4 3 PM CDT 02/14/2024 11:49 PM CDT us Jeremías Smith MD LAB BLOOD ORDERABLES Final Res ult Performing Organization Address [facility] Co de Phone Number MARY JANE [facility] [place] [address] * aPTT (02/14/2024 11:43 PM CDT) aPTT 31 22 - 37 sec Comment: Interpretive data aPTT test has not been evaluated for monitoring heparin therapy. The anti-Xa is the preferred test. Current interpretive data was last revised on 2019. Testing performed by: [address] [address] Blood 02/14/2024 11:4 3 PM CDT 02/14/2024 11:49 PM CDT us Jeremías Smith MD LAB BLOOD ORDERABLES Final Res ult Performing Organization Address [facility] Co de Phone Number MARY JANE [address] [address] * (ABNORMAL) Protime-INR (02/14/2024 11:43 PM CDT) PT 16.9(H) 12.0 - 14.6 sec Comment: Ref Range High Testing performed by: [address] [address] INR 1.4(H) 0.9 - 1.2 MARY JANE Comment: Ref Range High Interpretive data Oral anticoagulant therapeutic ranges: Venous thromboembolism prophylaxis or treatment: 2.0-3.0 CARDIOLOGY Standard range: 2.0-3.0 High-intensity range: 2.5-3.5 Refer to indication-specific guidelines for appropriate target ranges for prosthetic heart valve replacement. Current interpretive data was last revised on 2019. Testing performed by: [address] [place] [address] Blood 02/14/2024 11:4 3 PM CDT 02/14/2024 11:49 PM CDT Jeremías Smith MD LAB BLOOD ORDERABLES Final Res ult Performing Organization Address [facility] de Phone Number [facility] [address] [place] [address] * (ABNORMAL) Hemoglobin A1c (08/14/2023 8:47 PM CDT) Hgb A1C 8.4(H) 4.0 - 5.6 % Comment:Testing performed by : [address] [address] Estimated Average Glucose 194 mg/dL [facility] Comment: The ADA recommends reporting an estimated Average Glucose (eAG) with all Hemoglobin A1c results using the equation derived from a study of 507 normal and diabetic adults. ??Minority populations were underrepresented and children were not included. ?? (Diabetes Care 31:9498-8164, 2008). ??The eAG is not equivalent to a fasting glucose. Testing performed by: [facility], [address] [place] [address]., [address] Blood 08/14/2023 8:47 PM CDT 08/14/2023 8:52 PM CDT Philippe Mcguire MD LAB BLOOD ORDERABLES Final Result Performing Organization Address [facility] de Phone Number [place] [id number] [facility] [place] [address] * Lipid panel (08/14/2023 8:47 PM CDT) [...] last revised on 2017. Testing performed by: [address] [address] Triglycerides 121 <=149 mg/dL MARY JANE Comment: [...] last revised on 2017. Testing performed by: [address] [address] HDL 44 >=40 mg/dL MARY JANE Comment: [...] last revised on 2017. Testing performed by: [address] [address] LDL, calculated 108 <=129 mg/dL MARY JANE [...] last revised on 2017. Testing performed by: [address] [address] Non-HDL Cholesterol 132 mg/dL MARY JANE Comment: [...] last revised on 2017. Testing performed by: [facility], [address] [place] [address]., [address] Chol/HDL ratio 4 MARY JANE ANKIT Comment:Testing performed by : [facility], [address] [place] [address]., [address] Blood 08/14/2023 8:47 PM CDT 08/14/2023 8:52 PM CDT us Philippe Mcguire MD LAB BLOOD ORDERABLES Final Result MARY JANE ANKIT [address] [facility] Department [place] [address] * Dexa Axial Skeleton Bone Density 1 or 2 Site (08/02/2022 10:53 AM CDT) Anatomical Region Laterality Modality Body N/A Radiographic Lizeth ging Narrative 08/02/2022 3:34 PM CDT Patient Name: Karly Marques Date of : 1955 Date of scan: 08/02/2022 Bone mineral density was performed on a [employer] Densitometer. ?? Based on machine cross-calibration [...] density scan were prepared by Yesenia Tineo(Gwendolyn) CUATET ??who is accredited by the International Society of Clinical Densitometry. The overall patient assessment and scan interpretation were performed by Kaylie Castro MD ??who is certified by the International Society of Clinical Densitometry. [id number] Khris Arthur MD [facility] DXA PROCEDURES F inal Result * COLONOSCOPY REPORT (07/03/2017) Anatomical Region Laterality Modality Other us Provider Scanning GI PROCEDURE ORDERABLES Edited Result - Final * Screening Mammogram (08/19/2016 7:27 PM CDT) Anatomical Region Laterality Modality Breast N/A Mammography 08/19/2016 7:27 PM CDT Narrative 08/19/2016 7:27 PM CDT ANTHONY POPLACK, M.Heath RINCON M.D. FINAL REPORT The radiology attending physician has personally reviewed this study, and has reviewed and/or edited this written report and agrees with it. ACC# ??Date Time ??Exam [id number] Aug 19, 2016 14:27:00 [facility] [address] Diag Mamm, inc CAD, unilat L ?? Technologist(s): Carla Harris; ; [id number] Aug 19, 2016 15:39:00 [facility] [facility] [id number] Breast US unilateral, ltd L ACC# ??Date Time ??Exam [id number] Aug 19, 2016 14:27:00 [facility] [id number] Diag Mamm, inc CAD, unilat L ?? Technologist(s): Carla Harris; ; [id number] Aug 19, 2016 15:39:00 [facility] [id number] Breast US unilateral, ltd L EXAMINATION: ?? [...] SARABIA M.D. on Aug 19 2016 ??4:20P [id number] Procedure Note Miscellaneous, Not In File / Provider, MD Tyler - 09/17/2016 ANTHONY SARABIA M.D. JUDY RINCON M.D. FINAL REPORT The radiology attending physician has personally reviewed this study, and has reviewed and/or edited this written report and agrees with it. ACC# Date Time Exam [id number] Aug 19, 2016 14:27:00 [facility] 08758 Diag Mamm, inc CAD, unilat L Technologist(s): Carla Harris; ; [id number] Aug 19, 2016 15:39:00 [facility] 40270 Breast US unilateral, ltd L ACC# Date Time Exam [id number] Aug 19, 2016 14:27:00 C 26976 Diag Mamm, inc CAD, unilat L Technologist(s): Carla Harris; ; [id number] Aug 19, 2016 15:39:00 C 05492 Breast US unilateral, ltd L EXAMINATION: LEFT [...] SARABIA M.D. on Aug 19 2016 4:20P [id number] us Not In File Miscellaneous IMG MAMMO PROCEDURES F inal Result from Last 3 Months or Most Recently Relevant to Health Maintenance Insurance [facility] MEDICARE SOLUTIONS MEDICARE SOLUTIONS MEDICARE SOLUTIONS Advance Directives For more information, please contact: [phone] Documents on File Type Date Recorded Patient Tungsten Tender Expl anation ADVANCE DIRECTIVE 12/23/2021 2:49 PM Power of Whip Operator-Medical ADVANCE DIRECTIVE 12/23/2021 2:49 PM Living Will [...] Agents on File Name Relationship Healthcare Agent [facility] p Communication Yunior Marques Daughter Health Care Agent [phone] (Mobile) Jimmie Marques Spouse First Alternate Health Care Agent Care Teams Grounds Maintenance Supervisor Relationship Specialty Start Date End Date Justen Gale MD 2 [facility] [address] [place] [address] PCP - General 10/09/17 Liu Jerez MD Consulting Physician Gastroenterology 07/28/17 [place] [address] [facility] H2335 [place] [address] Consulting Physician Pulmonary Disease 08/03/17 Khris Arthur MD 4921 [facility] 8056 [place] [address] Medical Oncologist/Staffing Consultant Medical Oncology 10/23/17 [place] [address] [facility] [address] [place] [address] Surgeon Orthopedic Surgery 10/23/17 [place] [address] [facility] [address] [place] [address] Consulting Physician Pain Management 10/23/17 [place] [address] [facility] [address] [place] [address] Referring Physician General Surgery 01/26/18 [place] [address] [facility] [address] [place] [address] Consulting Physician Neurology 01/26/18
--- OUTSIDE RECORDS SUMMARY | 2024-05-16 20:42 | XMS_ITS | Encounter Summary ---
Author Organization [facility] Address [address] [place] [address] Phone Care Team Providers Care Process Expert Name Role Phone Justen Gale MD Primary Care Provider [phone] David Roberts APRN, COMB SETTER Unavailable [phone] Annel Rod MD Unavailable Reason for Visit * Reason Onset Date Comments Medication Refill 08/06/2020 Encounter Details Date Type Department Care Team (Late st Contact Info) Description 08/06/2020 Refill [facility] - Family [facility] #2 [place] [id number] Justen Gale MD #[address] [address] Medication Refill Social History Tobacco Use Types [...] Outpatient Visits 2 weeks ago CRP elevated [facility] Pili Mueller APN, COMB SETTER 2 months ago Increased urinary frequency [facility] Pili Mueller MACHINE GREASER, COMB SETTER 5 months ago Urinary frequency [facility] Pili Mueller MACHINE GREASER, COMB SETTER 8 months ago Type 2 diabetes mellitus with diabetic polyneuropathy, with long- term current use of insulin (HCC) [facility] Pili Mueller MACHINE GREASER, COMB SETTER 9 months ago Nausea [facility] - Justen Olmedo MD Upcoming Appointments Future Appointments In 6 days Pili Eklins APN, COMB SETTER [facility] Elias Mcgee [facility] CAR CLEANER DELTA SYSTEM - Recent and Past Visits Recent Visits Date Type Provider Dept 07/20/20 Office Visit Pili Elkins APN, COMB SETTER [facility] [place] 06/05/20 Office Visit Pili Elkins APN, COMB SETTER [facility] [place] 02/17/20 Office Visit Pili Elkins APN, NETTA [facility] [place] 12/03/19 Office Visit Pili Elkins APN, NETTA [facility] [place] 11/05/19 Telemedicine Justen Gale MD [facility] 07/25/19 Telemedicine Justen Gale MD [facility] [place] Showing recent visits within past 460 days with a meds authorizing provider and meeting all other requirements Future Appointments Date Type Provider Dept 08/12/20 Appointment Pili Elkins APN, NETTA [facility] [place] Showing future appointments within next 90 [...] st Contact Info) Description 06/25/2024 2:45 PM MANAGER RESEARCH Office Visit [facility] - Endocrinology - [place] #2 [place] [address] Annel Rod MD #[address] [place] [address] 06/28/2024 1:15 PM MANAGER RESEARCH Office Visit [facility] - Endocrinology - [place] #2 [place] [phone] Annel Rod MD #[address] [place] [address] documented as of this encounter Visit Diagnoses Not on filedocumented in this encounter Additional Health Concerns Assessment Noted Time PHQ-9 Depression Total Score: 0 07/21/19 21 3:00 PM CDT documented as of this encounter Care Teams Process Expert Relationship Specialty Start Date End Date Justen Gale MD #2 [facility] [address] [place] [address] PCP - General Family Medicine 10/17/17 David Roberts APRN, COMB SETTER #2 [place] [address] Nurse Practitioner Advanced Practice Nurse 01/31/22 Annel Rod MD #2 [facility] [address] [place] [address] Consulting Physician Endocrinology 07/01/22 documented as of this encounter
--- OUTSIDE RECORDS SUMMARY | 2024-05-16 20:42 | XMS_ITS ---
Author Organization [facility] Address [address] [place] [address] Care Team Providers Care Laborer Filter Plant Name Role Phone Liu Jerez MD Unavailable [phone] Albert Corbin MD Unavailable [phone] Justen Gale MD Primary Care Provider Khris Arthur MD Unavailable [phone] Ko Melendez MD Unavailable John Paul Moyer MD Unavailable Annel Rod MD Unavailable Anali MARSHALL MD, Carlos M. Unavailable Active Problems Problem Noted Date Diagnosed Date Breast cancer 08/17/2023 Abdominal pain 08/14/2023 Bone disorder 08/02/2022 Cystitis 02/09/2022 Lab test positive for detection of COVID-19 viru s 02/09/2022 Chest pain 09/12/2021 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) 2021 jail (current) use 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 inhibitors 10/17/2019 Thyroid [...] complication, without long-term current use of insulin ([facility]) 10/23/2017 Assessment & Plan (10/23/2017 2:06 AM [...] (07/28/2017): Added automatically from request for surgery [id number] Pulmonary embolism 08/09/2016 Assessment & Plan (10/23/2017 [...] left female breast, unspecified estrogen receptor status (HCC)jail (current) use 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 inhibitorsBone disorder Treatment Medications No medications scheduled. Past Plans Oncology Supportive Care Plan Name Start Date Discontinue Date Treatment Medications Discontinue Reason Plan Provider Zoledronic Acid (ZOMETA) Infusion 01/05/2021 09/07/2021 No medications scheduled. Toxicity/Complic ation Khris Arthur MD Radiation Treatments * No radiation treatments are documented for this patient in [facility]. Treatments may have been administered in another system. Lifetime Dose Tracking * Chemical Lifetime Dose Automatic Entry Manual Entr y DLP 2,647 mGycm 2,647 mGycm 0 mGycm
--- OUTSIDE RECORDS SUMMARY | 2024-05-16 20:42 | XMS_ITS | Encounter Summary ---
Author Organization [facility] Address [address] [place] [address] Care Team Providers Care Supervisor Research Shop Name Role Phone Liu Jerez MD Unavailable Albert Corbin MD Unavailable [phone] Justen Gale MD Primary Care Provider [phone] Khris Arthur MD Unavailable Ko Melendez MD Unavailable John Paul Moyer MD Unavailable Annel Rod MD Unavailable Anali MARSHALL MD, Carlos M. Unavailable [phone] Reason for Referral * Diagnostic Imaging (Routine) - Closed Specialty Diagnoses / Procedures Referred By Contac t Referred To Contact Diagnoses Malignant neoplasm of upper-inner quadrant of left breast in female, estrogen receptor positive (HCC) Procedures XR Ribs Left 2 Views Khris Arthur MD 6032 [facility] [address] [place] [address] Phone: tel: fax: [address] [address] Referral ID Status Reason Start Date Expiration Date Visits Re quested Visits Authorized [id number] Closed 05/14/2024 06/13/2025 1 1 ARCH TECH Reason for Visit * Diagnostic Imaging (Routine) - Closed Specialty Diagnoses / Procedures Referred By Elyssa benavides Referred To Contact Diagnoses Malignant neoplasm of upper-inner quadrant of left breast in female, estrogen receptor positive (HCC) Procedures XR Ribs Left 2 Views Khris Arthur MD 4541 [facility] [address] [place] [address] Phone: tel: fax: [address] [address] Referral ID Status Reason Start Date Expiration Date Visits Re quested Visits Authorized [id number] Closed 05/14/2024 06/13/2025 1 1 Encounter Details Date Type Department Care Team (Latest Contact Info) Description 05/14/2024 4:36 PM RESEARCH TECH - 05/14/2024 11:59 PM RESEARCH TECH Hospital Encounter [facility] - Diagnostic Imaging 45[address] [facility] Floor 8 [place] [address] Malignant neoplasm of upper-inner quadrant of left breast in female, estrogen receptor positive (HCC) Discharge Disposition: Discharge to home or self care Social History Tobacco Use Types Packs/Day Years Used Date Smoking Tobacco: Former Smokeless Tobacco: Never Comments:remote tobacco use Alcohol Use Standard Drinks/Week Comments No 0 (1 standard drink = 0.6 oz pur e alcohol) [facility] Utilities Answer Date Recorded In the past 12 months has [employer], gas, oil, or water company threatened to [...] How often do you attend chur or gnosticism services? Patient unable to answer 08/15/2023 Do you belong to any clubs o r organizations such as restoration groups, unions, fraternal or athletic groups, or [...] file Legal Sex Female 12:24 AM RESEARCH TECH Gender Identity Not on file Sexual [...] TIMES DAILY DIRECTED 06/24/2021 blood glucose diagnostic ([employer] Ultra Test) strip 4 (four) times a [...] Name Priority Date/Time Associated Diagnosis Comments XR RIBS LEFT 2 VIEWS Schedule Routine, Read Routine (OP Routine) 05/14/2024 4:44 PM RESEARCH TECH Malignant neoplasm of upper-inner quadrant of left breast in female, estrogen receptor positive (HCC) documented in this encounter Results * XR Ribs Left 2 Views (05/14/2024 4:44 PM RESEARCH TECH) Anatomical Region Laterality Modality Rib, Chest Left Digital Radiogra phy 05/14/2024 4:54 PM RESEARCH TECH Impressions 05/14/2024 4:54 PM RESEARCH TECH 1. ??No displaced left rib fracture. Electronically signed by: Santiago Gan D.O. Narrative 05/14/2024 4:54 PM RESEARCH TECH EXAMINATION: XR RIBS LEFT 2 VIEWS HISTORY: [...] MD IMG XR PROCEDURES Fi nal Result documented in this encounter Visit Diagnoses Diagnosis Malignant neoplasm of upper-inner quadrant of left breast in female, estrogen receptor positive (HCC) documented in this encounter Care Teams Supervisor Research Shop Relationship Specialty Start Date End Date Justen Gale MD [address] [address] PCP - General 10/09/17 Liu Jerez MD Consulting Physician Gastroenterology 07/28/17 [place] [address] [facility] H[address] [place] [address] Consulting Physician Pulmonary Disease 08/03/17 Khris Arthur MD [address] [facility] [address] [place] [address] Medical Oncologist/Forming Machine Tender Medical Oncology 10/23/17 [place] [address] [facility] [address] [place] [address] Surgeon Orthopedic Surgery 10/23/17 [place] [address] [facility] [address] [place] [address] Consulting Physician Pain Management 10/23/17 [place] [address] [facility] [address] [place] [address] Referring Physician General Surgery 01/26/18 [place] [address] [facility] [address] [place] [address] Consulting Physician Neurology 01/26/18 documented as of this encounter
--- OUTSIDE RECORDS SUMMARY | 2024-05-16 20:42 | XMS_ITS | Encounter Summary ---
Author Organization [facility] Address [address] [place] [address] Phone Care Team Providers Care Roof Truss Detailer Name Role Phone Justen Gale MD Primary Care Provider [phone] David Roberts APRN, MASTER TECHNICIAN Unavailable [phone] Annel Rod MD Unavailable Reason for Visit * Reason Comments Medication Refill Encounter Details Date Type Department Care Team (Late st Contact Info) Description 07/12/2022 Refill [facility] - Family Medicine [facility] #2 [place] [address] Justen Gale MD #[address] [address] Medication Refill Social History Tobacco Use Types [...] 07/05/22 Office Visit Pili Elkins [facility]N, NETTA [facility] [place] 05/02/22 Office Visit Justen Gale MD [facility] [place] 03/03/22 Office Visit Pili Elkins APRN, MASTER TECHNICIAN [facility] [place] 01/03/22 Office Visit Dannielle Berg PAC [facility] [place] 12/07/21 Office Visit Pili Elkins APRN, MASTER TECHNICIAN [facility] [place] 11/09/21 Office Visit Pili Elkins APRN, NETTA [facility] [place] 10/08/21 Office Visit Angelito Alegria APRN, NETTA [facility] [place] 08/30/21 Office Visit [facility] Showing recent visits within past 365 days and meeting all other requirements Future Appointments No visits were found meeting these conditions. Showing future appointments within next 90 days and meeting all other requirements documented in this encounter Plan of Treatment Upcoming Encounters Date Type Department Care Team (Late st Contact Info) Description 06/25/2024 2:45 PM DATA SUPPORT SPECIALIST Office Visit [facility] Endocrinology - [place] #2 [place] [address] Annel Rod MD #[address] [address] 06/28/2024 1:15 PM DATA SUPPORT SPECIALIST Office Visit [facility] - [place] [facility] [facility] [place] [address] Annel Rod MD #[address] [place] [address] documented as of this encounter Visit Diagnoses Not on filedocumented in this encounter Additional Health Concerns Assessment Noted Time PHQ-9 Depression Total Score: 0 07/21/19 21 3:00 PM CDT documented as of this encounter Care Teams Roof Truss Detailer Relationship Specialty Start Date End Date Justen Gale MD #[address] [address] PCP - General Family Medicine 10/17/17 David Roberts, GUNNERY/ORDNANCE OFFICER, MASTER TECHNICIAN #2 [place] [address] Nurse Practitioner Advanced Practice Nurse 01/31/22 Annel Rod MD #[address] [address] Consulting Physician Endocrinology 07/01/22 documented as of this encounter
--- OUTSIDE RECORDS SUMMARY | 2024-05-16 20:42 | XMS_ITS | Encounter Summary ---
Author Organization [facility] Address [address] [place] [address] Phone Care Team Providers Care Organic Extractions Technician Name Role Phone Justen Gale MD Primary Care Provider [phone] David Roberts APRN, CAMOUFLAGE ASSEMBLER Unavailable [phone] Annel Rod MD Unavailable Reason for Visit * Reason Comments Medication Refill Encounter Details Date Type Department Care Team (Late st Contact Info) Description 10/24/2022 Refill [facility] #2 [place] [address] Pili Elkins APRN, CAMOUFLAGE ASSEMBLER #[address] [address] Medication Refill Social History Tobacco [...] st Contact Info) Description 06/25/2024 2:45 PM DEMO COORDINATOR Office Visit [facility] End[facility]2 [place] [address] Annel Rod MD #[address] [address] 06/28/2024 1:15 PM DEMO COORDINATOR Office Visit [facility] #2 [place] [address] Annel Rod MD #[address] [address] documented as of this encounter Visit Diagnoses Diagnosis Essential hypertension Unspecified essential hypertension documented in this encounter Additional Health Concerns Assessment Noted Time PHQ-9 Depression Total Score: 0 09/17/19 23 11:00 AM CDT documented as of this encounter Care Teams Organic Extractions Technician Relationship Specialty Start Date End Date Justen Gale MD #[address] [address] PCP - General Family Medicine 10/17/17 David Roberts, HUMAN SERVICES PROFESSIONAL, CAMOUFLAGE ASSEMBLER #2 [place] [address] Nurse Practitioner Advanced Practice Nurse 01/31/22 Annel Rod MD #[address] [address] Consulting Physician Endocrinology 07/01/22 documented as of this encounter
--- OUTSIDE RECORDS SUMMARY | 2024-05-16 20:43 | XMS_ITS | Encounter Summary ---
Author Organization [facility] Address [address] [place] [address] Phone Care Team Providers Care Roll Up Helper Name Role Phone Liu Jerez MD Unavailable Albert Corbin MD Unavailable Justen Gale MD Primary Care Provider Khris Arthur MD Unavailable [phone] Ko Melendez MD Unavailable John Paul Moyer MD Unavailable [phone] Annel Rod MD Unavailable Anali MARSHALL MD, Carlos M. Unavailable [phone] Encounter Details Date Type Department Care Team [...] file Legal Sex Female 12:24 AM DIGITAL MEDIA STRATEGIST Gender Identity Not on file Sexual Orientation [...] COVID: Recovered 02/10/2022 02/10/2022 06/10/2022 3:05 AM DIGITAL MEDIA STRATEGIST Exposure, COVID-19 Comment:Added automatically based on COVID19 lab answers indicating exposure risk 02/11/2022 02/11/2022 02/15/2022 9:06 AM C DT COVID: Suspected 05/14/2022 05/14/2022 05/14/2022 10:41 AM DIGITAL MEDIA STRATEGIST COVID: Suspected 06/07/2022 06/07/2022 06/07/2022 12:28 PM DIGITAL MEDIA STRATEGIST COVID: Suspected 06/21/2022 06/21/2022 06/21/2022 2:12 AM DIGITAL MEDIA STRATEGIST COVID: Suspected 10/05/2022 10/05/2022 10/05/2022 7:40 PM CDT COVID: Suspected 01/04/2024 01/04/2024 01/04/2024 10:30 PM CDT COVID: Suspected 02/14/2024 02/14/2024 02/15/2024 12:36 AM CDT documented as of this encounter Care Teams Roll Up Helper Relationship Specialty Start Date End Date Justen Gale MD 2 [facility] [address] [place] [address] PCP - General 10/09/17 Liu Jerez MD Consulting Physician Gastroenterology 07/28/17 [place] [address] [facility] [address] [place] [address] Consulting Physician Pulmonary Disease 08/03/17 Khris Arthur MD 4921 [facility] [address] [place] [address] Medical Oncologist/Crm Marketing Manager Medical Oncology 10/23/17 [place] [address] [facility] [address] [place] [address] Surgeon Orthopedic Surgery 10/23/17 [place] [address] [facility] [address] [place] [address] Consulting Physician Pain Management 10/23/17 [place] [address] [facility] [address] [place] [address] Referring Physician General Surgery 01/26/18 [place] [address] [facility] [address] [place] [address] Consulting Physician Neurology 01/26/18 documented as of this encounter
--- OUTSIDE RECORDS SUMMARY | 2024-05-16 20:43 | XMS_ITS | Encounter Summary ---
Author Organization [facility] Address [address] [place] [address] Phone Care Team Providers Care Obstetrics And Gynecology Professor Name Role Phone aLvonne Hathaway MD Primary Care Provider [phone] Liu Jerez MD Unavailable [phone] Albert Corbin MD Unavailable [phone] Justen Gale MD Primary Care Provider [phone] Lavonne Hathaway MD Primary Care Provider + [phone] Justen Gale MD Primary Care Provider [phone] Khris Arthur MD Unavailable + [phone] Ko Melendez MD Unavailable [phone] John Paul Moyer MD Unavailable Annel Rod MD Unavailable Anali MARSHALL MD, Carlos M. Unavailable [phone] Encounter Details Date Type Department Care Team ([facility] Contact Info) Description 05/15/2017 Orders Only [facility] Scanning, Provider Social History Tobacco Use Types Packs/Day Years Used Date Smoking Tobacco: Former Alcohol Use Standard Drinks/Week Comments No 0 (1 standard drink = 0.6 oz pur e alcohol) Comments Unknown Sex and Gender Information Value Date Recorded Sex Assigned at Not on file Legal Sex Female 12:24 AM BLOCKER AND CUTTER CONTACT LENS Gender Identity Not on file Sexual Orientation [...] COVID: Recovered 02/10/2022 02/10/2022 06/10/2022 3:05 AM BLOCKER AND CUTTER CONTACT LENS Exposure, COVID-19 Comment:Added automatically based on COVID19 lab answers indicating exposure risk 02/11/2022 02/11/2022 02/15/2022 9:06 AM C DT COVID: Suspected 05/14/2022 05/14/2022 05/14/2022 10:41 AM BLOCKER AND CUTTER CONTACT LENS COVID: Suspected 06/07/2022 06/07/2022 06/07/2022 12:28 PM BLOCKER AND CUTTER CONTACT LENS COVID: Suspected 06/21/2022 06/21/2022 06/21/2022 2:12 AM BLOCKER AND CUTTER CONTACT LENS COVID: Suspected 10/05/2022 10/05/2022 10/05/2022 7:40 PM CDT COVID: Suspected 01/04/2024 01/04/2024 01/04/2024 10:30 PM CDT COVID: Suspected 02/14/2024 02/14/2024 02/15/2024 12:36 AM CDT documented as of this encounter Care Teams Obstetrics And Gynecology Professor Relationship Specialty Start Date End Date Lavonen Hathaway MD [address] [place] [address] [place] [address] PCP - General 08/16/16 08/17/17 Justen Gale MD 2 [place] [facility] [address] [address] PCP - General 08/18/17 08/22/17 Lavonne Hathaway MD [address] [place] [address] [place] [address] PCP - General Family Medicine 08/23/17 10/08/17 Justen Gale MD 2 [place] [facility] [address] [address] PCP - General 10/09/17 Liu Jerez MD [address] [place] [address] [place] [address] Consulting Physician Gastroenterology 07/28/17 [place] [address] [facility] H23[address] [place] [address] Consulting Physician Pulmonary Disease 08/03/17 Khris Arthur MD [address] [facility] [address] [place] [address] Medical Oncologist/Manager Mail Medical Oncology 10/23/17 [place] [address] [facility] [address] [place] [address] Surgeon Orthopedic Surgery 10/23/17 [place] [address] [address] Consulting Physician Pain Management 10/23/17 [place] [address] [facility] [address] [place] [address] Referring Physician General Surgery 01/26/18 [place] [address] [facility] [address] [place] [address] Consulting Physician Neurology 01/26/18 documented as of this encounter
--- OUTSIDE RECORDS SUMMARY | 2024-05-16 20:43 | XMS_ITS | Encounter Summary ---
Author Organization [facility] Address [address] [place] [address] Phone Care Team Providers Care Lead Programmer Name Role Phone Liu Jerez MD Unavailable Albert Corbin MD Unavailable [phone] Jsuten Gale MD Primary Care Provider [phone] Khris Arthur MD Unavailable Ko Melendez MD Unavailable John Paul Moyer MD Unavailable Annel Rod MD Unavailable Anali MARSHALL MD, Carlos M. Unavailable [phone] Reason for Referral * Diagnostic Imaging (Routine) - Authorized Specialty Diagnoses / Procedures Referred By Contac t Referred To Contact Diagnoses Swelling of left lower extremity Procedures US Vein Duplex Lower Extremity Left Limited Khris Arthur MD [address] [facility] [address] [place] [address] Phone: tel: fax: [facility] (All Locations) Referral ID Status Reason Start Date Expiration Date V isits Requested Visits Authorized [id number] Authorized 05/16/2024 06/15/2025 1 1 ANALYST * Diagnostic Imaging (Routine) - Authorized Specialty Diagnoses / Procedures Referred By Contac t Referred To Contact Diagnoses Swelling of left upper extremity Procedures US Vein Duplex Upper Extremity Left Limited Khris Arthur MD [address] [place] [address] Phone: tel: fax: [facility] (All Locations) Referral ID Status Reason Start Date Expiration Date V isits Requested Visits Authorized [id number] Authorized 05/16/2024 06/15/2025 1 1 ANALYST * Diagnostic Imaging (Routine) - Closed Specialty Diagnoses / Procedures Referred By Elyssa benavides Referred To Contact Diagnoses Malignant neoplasm of upper-inner quadrant of left breast in female, estrogen receptor positive (HCC) Procedures XR Ribs Left 2 Views Khris Arthur MD [address] [place] [address] Phone: tel: fax: [facility] [address] [place] [address] Referral ID Status Reason Start Date Expiration Date Visits Re quested Visits Authorized [id number] Closed 05/14/2024 06/13/2025 1 1 ANALYST Encounter Details Date Type Department Care Team (Late st Contact Info) Description 05/14/2024 3:30 PM JAVA ANALYST Office Visit [facility] Oncology [address] [facility] Floor [address] [place] [address] Khris Arthur MD [address] [place] [address] Swelling of right lower extremity (Primary Dx); Malignant neoplasm of upper-inner quadrant of left breast in female, estrogen receptor positive (HCC); Swelling of right upper extremity; Swelling of left upper extremity; Swelling of left lower extremity Social History Tobacco Use Types Packs/Day Years Used Date Smoking Tobacco: Former Smokeless Tobacco: Never Comments:remote tobacco use Alcohol Use Standard Drinks/Week Comments No 0 (1 standard drink = 0.6 oz pur e alcohol) [facility] Utilities Answer Date Recorded In the past 12 months has [employer] electric, gas, oil, or water [employer] threatened to shut off services in your [...] answer 08/15/2023 How often do you attend [facility] or faith services? Patient unable to answer 08/15/2023 Do [...] on file Legal Sex Female 12:24 AM JAVA ANALYST Gender Identity Not on file Sexual Orientation Not on file documented as of this encounter Last Filed Vital Signs Vital Sign Reading Time Taken Comments Blood Pressure 131/78 05/14/2024 3:40 PM JAVA ANALYST Pulse 80 05/14/2024 3:40 PM JAVA ANALYST Temperature 36.8 ??C (98.3 ??F) 05/14/2024 3:40 PM CS T Respiratory Rate 18 05/14/2024 3:40 PM JAVA ANALYST Oxygen Saturation 99% 05/14/2024 3:40 PM JAVA ANALYST Inhaled Oxygen Concentration - - Weight 121.1 kg (267 lb) 05/14/2024 3:40 PM JAVA ANALYST Height 154.9 cm (5' 1 ) 05/14/2024 3:40 PM JAVA ANALYST Body Mass Index 50.45 05/14/2024 3:40 PM JAVA ANALYST documented in this encounter Progress Notes * Darcy Goel, SCIENTIFIC DIRECTOR - 05/14/2024 3:30 PM CST Oncology Medicine Follow Up Visit Reason for [...] in the left carcinoma were ER 8, MI 8, HER-2 negative. 3. Cytology on 07/21/2014 [...] of left female breast (CMS/HCC) Interval History: Karly presents for interim follow up. She has been having left axillary pain, left lateral chest wall pain, LUE and LLE swelling x a few weeks. Did not take her blood thinner for 4-5 days as her pharmacy did not have any available for her. UTI precipitated these symptoms. Gets frequent UTI infections, most recently treated with Augmentin (numerous antibiotic allergies), generally goes to ED or urgent care for her symptoms but does have a PCP (Dr. Justen Gale) who is aware. Says she has beenreferred to urology. She is feeling urinary symptoms again currently including urinary frequency, incontinence, pressure, and urine darker than usual. Continues to take exemestane daily, tolerating we ll. Afraid to stop due to sister with metastatic breast cancer and another sister with breast cancer as well. Review of Systems: A 12 point review of systems done, all other systems negative. Past Medical History: Diagnosis Date Breast CA (HCC) CHF (congestive heart failure) (CMS/HCC) (HCC) Depression Depression DM (diabetes mellitus) (HCC) DVT (deep venous thrombosis) (CMS/HCC) (HCC) HTN (hypertension) Obesity LUL (obstructive sleep apnea) Osteoarthritis osteoarthritis Osteoporosis PE (pulmonary thromboembolism) (CMS/HCC) (HCC) RLS (restless legs syndrome) Past Surgical History: Procedure Laterality Date ABSCESS CATHETER INJECTION N/A 11/26/2014 ABSCESS CATHETER INJECTION N/A 11/26/2014 ABSCESS CATHETER INJECTION N/A 11/14/2014 ABSCESS CATHETER INJECTION N/A 11/05/2014 ABSCESS TUBE EXCHANGE N/A 11/05/2014 CARDIAC CATHETERIZATION SECTION section CHOLECYSTECTOMY gallbladder removal COLONOSCOPY CYSTOSCOPY ESOPHAGOGASTRODUODENOSCOPY INGUINAL HERNIA REPAIR IR FINE NEEDLE ASPIRATION W IMAGE GUIDANCE N/A 07/25/2014 MASTECTOMY OOPHORECTOMY Right PORT PLACEMENT CHEST >5 YEARS N/A 11/05/2021 THYROID SURGERY Biopsy benign. TOTAL KNEE ARTHROPLASTY Right US SOFT TISSUE ABSCESS DRAIN N/A 12/11/2014 US SOFT TISSUE ABSCESS DRAIN N/A 10/24/2014 VENTRAL HERNIA REPAIR (Not in a hospital admission) Current Outpatient [...] 3 (three) times a day HYDROcodone-acetaminophen (NORCO) 10-325 mg per tablet Take 1 tablet by mouth every 6 (six) hours as needed for pain insulin glargine 100 unit/mL vial for injection Inject 32 Units under the skin daily Takes in the morning insulin lispro (HumaLOG, ADMELOG) 100 unit/mL vial for injection Inject 28 Units under the skin 3 (three) times a day before meals 28 units plus sliding scale before meals methenamine (HIPREX) 1 gram tablet Take 1 tablet (1,000 mg total) by mouth 2 (two) times a day naloxone (NARCAN) 4 mg/actuation spray,non-aerosol ondansetron (ZOFRAN) [...] total) by mouth daily 30 tablet 11 rOPINIRole (REQUIP) 5 mg tablet Take 1 [...] Use: Not At Risk (06/16/2023) Received from [facility], [facility] [employer] AUDIT-C Frequency of Alcohol Consumption: Never Average [...] of restless leg syndrome; Physical Exam: Vitals: 05/14/24 1536 05/14/24 1540 BP: 131/78 BP Location: Right arm Pulse: 80 Resp: 18 Temp: 36.8 ??C (98.3 ??F) TempSrc: Oral Oral SpO2: 99% Weight: 121.1 kg (267 lb) Height: 154.9 cm (5' 1 ) 154.9 cm (5' 1 ) Physical Examination: Performance Status: ECOG 1 General: She appears [...] changes. No e/o local recurrence. Lab/Radiology/Diagnostic Review: No results found for this or any previous visit (from the past 24 hours). Radiology: DEXA 08/02/22 FINDINGS: BONE MINERAL DENSITY [...] again due to ongoing bone loss, so we plan yearly reclast X 3 years then following that will recheck DEXA. Next dose scheduled11/2024. She will continue on calcium and vitamin D for now as well. Left Rib XR today for evaluation of pain Left axillary US for evaluation of pain LLE and LUE doppler to r/o DVT. Consider lymphedema (particularly LUE) contributing to symptoms, refer to lymphedema therapy if doppler negative. UA with reflex to culture, with notify her of results and fax to PCP for treatment if indicated. Encouraged her to go to ED or urgent care with worsening symptoms in the meantime. RTC in 11/2024 as scheduled with lab + next Reclast. Encouraged to call in the interim with any questions or concerns. CLEOPATRA Blanc-C Nurse Practitioner [facility] In collaboration with Dr. Khris Arthur Cosigned by Khris Arthur MD at 05/15/2024 4:17 PM JAVA ANALYST ANALYST ANALYST documented in this encounter Miscellaneous Notes * Addendum Note - Jim Pace RN - 05/14/2024 3:30 PM CSTAddended by: JIM PACE on: 05/16/2024 09:14 AM Modules accepted: Orders ANALYST documented in this encounter Plan of Treatment Scheduled Orders Name Type Priority Associated Diagnoses Orde r Schedule US Vein Duplex Upper Extremity Left Limited Imaging Schedule Routine, Read Routine (OP Routine) Swelling of left upper extremity Expected: 05/16/2024, Expires: 05/16/2025 US Vein Duplex Lower Extremity Left Limited Imaging Schedule Routine, Read Routine (OP Routine) Swelling of left lower extremity Expected: 05/16/2024, Expires: 05/16/2025 documented as of this encounter Results * (ABNORMAL) Urinalysis reflex to microscopic and culture Urine, clean voided (05/14/2024 4:50 PM JAVA ANALYST) Color, ur Straw Yellow Clarity, ur Clear Clear [facility] Specific gravity, ur 1.025 1.003 - 1.030 [facility] pH, urine 5.5 [facility] Comment: Interpretive Data ? Urine pH is affected by diet, medications, systemic acid-base disturbances, and renal tubular function. ??pH may affect urinary stone formation. ??For example, urine pH below 6.0 may help reduce the tendency for calcium phosphate stones and pH greater than 6.0 may reduce the tendency for uric acid stone formation. Source: [facility] Current Interpretive Data was last revised on 2017 Protein, ur ql Trace Negative [facility] Glucose, ur ql Negative Negative [facility] Ketones, ur Negative Negative [facility] Bilirubin, ur Negative Negative [facility] Blood, ur Trace(A) Negative [facility] Urobilinogen, ur <2.0 <2.0 mg/dL [facility] Nitrite, ur Negative Negative [facility] Leukocyte esterase, ur Negative Negative [facility] UA reflex comment Reflex to microscopic UA will be performed. [facility] Urine, clean voided 05/14/2024 4:50 PM JAVA ANALYST 05/14/2024 7:18 PM JAVA ANALYST Khris Arthur MD LAB MICROBIOLOGY - G ENERAL ORDERABLES Final Result [facility] [place] [address] * XR Ribs Left 2 Views (05/14/2024 4:44 PM JAVA ANALYST) Anatomical Region Laterality Modality Rib, Chest Left Digital Radiogra phy 05/14/2024 4:54 PM JAVA ANALYST Impressions 05/14/2024 4:54 PM JAVA ANALYST 1. ??No displaced left rib fracture. Electronically signed by: Santiago Gan D.O. Narrative 05/14/2024 4:54 PM JAVA ANALYST EXAMINATION: XR RIBS LEFT 2 VIEWS HISTORY: [...] documented in this encounter Visit Diagnoses Diagnosis Swelling of right lower extremity- Primary Malignant neoplasm of upper-inner quadrant of left breast in female, estrogen receptor positive (HCC) Swelling of right upper extremity Swelling of left upper extremity Swelling of left lower extremity Malignant neoplasm of upper-inner quadrant of left breast in female, estrogen receptor positive (HCC) documented in this encounter Orders Appointment Requests Count Last Ordered Date Fi rst Ordered Date [facility] CLINIC APPOINTMENT REQUEST 1 025 [facility] LAB APPOINTMENT 1 05/14/2024 documented in this encounter Care Teams Lead Programmer Relationship Specialty Start Date End Date Justen Gale MD [address] [facility] [address] [place] [address] PCP - General 10/09/17 Liu Jerez MD Consulting Physician Gastroenterology 07/28/[address] [place] [address] [facility] [address] [place] [address] Consulting Physician Pulmonary Disease 08/03/17 Khris Arthur MD [address] [place] [address] [address] [place], [place] [id number] Medical Oncologist/[facility] Medical Oncology 10/23/17 [place] [address] [address] Surgeon Orthopedic Surgery 10/23/17 [place] [address] [address] Consulting Physician Pain Management 10/23/17 [place] [address] [address] Referring Physician General Surgery 01/26/18 [place] [address] [address] [facility] [address] [place] [address] Consulting Physician Neurology 01/26/18 documented as of this encounter
--- OUTSIDE RECORDS SUMMARY | 2024-05-16 20:47 | XMS_ITS | CONTINUITY OF CARE DOCUMENT ---
Author Name ayesha, ayesha Address Unknown Organization [facility] Address [address] [facility] [address] [place] [address] Phone [phone] Care Team Providers Care Decating Machine Operator Name Role Phone Yamilet DURÁN, Maico Unavailable ALANIS UDRÁN, BRIDGETT Unavailable ALLISON DURÁN, CLARISSE Unavailable PROBLEMS Condition Status Date Provider Notes Shortness of breath active Ivory Rodriguez Palpitations active Radha Seals INSURANCE PROVIDERS Payer name Policy type / Coverage type [place] red constitution party ID UHC MEDICARE COMPLETE HMO Other [id number] [facility] Medicaid 2 [id number] HISTORY OF PROCEDURES Procedure Date Procedure Name Provider Procedure Notes S tatus Stress EKG Carmine Silverio MD complet ed Regadenoson, 4 units Sergey Saldana MD completed Cardiolite, 2 units Sergey Saldana MD completed SPECT Images Carmine Silverio MD compl eted Holter, 24 or 48 Maico Woodard MD co mpleted
--- OUTSIDE RECORDS SUMMARY | 2024-05-16 20:48 | XMS_ITS | Encounter Summary ---
Author Organization [facility] Address [address] [place] [address] Phone Care Team Providers Care Sales Mgr Name Role Phone Justen Gale MD Primary Care Provider [phone] David Roberts APRN, CHIP BIN CONVEYOR TENDER Unavailable [phone] Annel Rod MD Unavailable Reason for Visit * Reason Comments Medication Refill Encounter Details Date Type Department Care Team (Late st Contact Info) Description 03/13/2021 Refill [facility] [address] [place] [address] Justen Gale MD [address] [address] Medication Refill Social History Tobacco Use Types [...] COVID-19? No / Unsure 03/02/2021 5:05 PM SURGICAL RN documented as of this encounter Plan of Treatment Upcoming Encounters Date Type Department Care Team (Late st Contact Info) Description 06/25/2024 2:45 PM SURGICAL RN Office Visit [facility]ology - [place] [address] [facility] [place] [address] Annel Rod MD [address] [place] [address] 06/28/2024 1:15 PM SURGICAL RN Office Visit [facility] - [place] [address] [facility] [place] [address] Annel Rod MD [address] [address] documented as of this encounter Visit Diagnoses Not on filedocumented in this encounter Additional Health Concerns Assessment Noted Time PHQ-9 Depression Total Score: 0 07/21/19 21 3:00 PM CDT documented as of this encounter Care Teams Sales Mgr Relationship Specialty Start Date End Date Justen Gale MD #[address] [facility] [address] [place] [address] PCP - General Family Medicine 10/17/17 David Roberts, SEISMIC SURVEY ASSISTANT, CHIP BIN CONVEYOR TENDER [address] [place] [address] Nurse Practitioner Advanced Practice Nurse 01/31/22 Annel Rod MD [address] [place] [address] Consulting Physician Endocrinology 07/01/22 documented as of this encounter
--- OUTSIDE RECORDS SUMMARY | 2024-05-16 20:48 | XMS_ITS | Clinical Summary ---
Author Organization [facility] Address [address] [place] [address] Phone Care Team Providers Care Clinic Clerk Name Role Phone Justen Gale MD Primary Care Provider [phone] Allergies Active Allergy Reactions Criticality Noted Date Comments Ceftriaxone Anaphylaxis High 09/14/2017 Metoclopramide Hcl Unknown 09/14/2017 Oxycodone Nausea and Vomiting Low 09/14/2017 Medications HYDROcodone-sara taminophen (NORCO) 5-325 mg tablet Take 1 Tablet by mouth every 4 hours as needed for Pain, Break-Through. Max Daily Amount: 6 Tablets 12 Tablet 8 Active exemestane (AROMASIN) 25 mg Tablet Take 25 mg by mouth daily. Active lisinopril (PRINIVIL) 20 mg tablet Take 20 mg by mouth daily. 3 Active oxybutynin chloride (DITROPAN) 5 mg tablet Take 5 mg by mouth daily. 4 Active polyethylene glycol 3350 (MIRALAX) 17 gram/dose Powder Mix 1 scoop (17 g) in 8 oz of water and drink daily. 8 Active rivaroxaban (XARELTO) 10 mg Tablet Take 10 mg by mouth daily. Active rOPINIRole (REQUIP) 5 mg Tablet Take 5 mg by mouth daily at bedtime. 3 Active sitaGLIPtin-met FORMIN (JANUMET) 50-1,000 mg tablet Take 1 Tablet [...] at Not on file Legal Sex Female 9:06 AM CDT Gender Identity Not on file Sexual [...] Health Maintenance Due Date Last Done Comments DIABETES ANNUAL FOOT EXAM 1974 DIABETES ANNUAL RETINAL EXAM 1974 DIABETES MICROALBUMIN ANNUAL SCREEN 1974 PNEUMOCOCCAL VACCINE 65+ YEA RS (1 of 2 - PCV) 1975 BREAST CANCER SCREENING 1996 COLORECTAL SCREENING 2001 [...] 06/25/20232022, 10/31/2021, 09/28/2017 INFLUENZA VACCINE (#1) 2023 2, 05/04/2021, 02/03/2020, Additional history exists DTAP/TDAP/TD VACCINES (2 - [...] - 6.0 % 09/29/2017 10:28 AM CDT [facility] EST. AVG GLUCOSE, A1C 186 mg/dL 09/29/2017 10:28 AM CDT [facility] Blood Venipuncture / Unknown 09/28/2017 8:41 PM CDT 09/28/2017 8:46 PM CDT Narrative [facility] - 09/29/2017 10:28 AM CDT HGB A1C INTERPRETATION NORMAL: ? <5.7% PRE-DIABETES: 5.7 - 6.4% DIABETES: ? 6.5% OR GREATER us Francisco Castaneda MD CHEMISTRY ORDERABLES Final Resul t [facility] [employer] [facility]# [id number] [address] [place] [address] * (ABNORMAL) LIPID PANEL (09/28/2017 8:41 PM CDT) CHOLESTEROL 174 <200 mg/dL 09/30/2017 2:45 AM CDT [facility] TRIGLYCERIDE 109 <150 mg/dL 09/30/2017 2:45 AM CDT [facility] HDL 45 40 - 59 mg/dL 09/30/2017 2:45 AM CDT [facility] [employer] LDL CALCULATED 107(H) <100 mg/dL 09/30/2017 2:45 AM CDT [facility] [employer] NON-HDL CHOLESTEROL 129 <130 mg/dL 09/30/2017 2:45 AM CDT [facility] [employer] Blood Venipuncture / Unknown 09/28/2017 8:41 PM CDT 09/28/2017 8:46 PM CDT Narrative [facility] - 09/30/2017 2:45 AM CDT [...] Guidelines Reference Ranges for Lipid Panels (NCEP/AMA) us Francisco Castaneda MD CHEMISTRY ORDERABLES Final Resul t [facility] [employer]# [id number] [address] [place] [address] from Last 3 Months or Most Recently Relevant to Health Maintenance Insurance [facility] AAR [id number] Advance Directives For more information, please contact: [phone] * Full Code (Latest Code Status on File) Date Activated Date Inactivated Comments 09/29/2017 7:45 AM 09/30/2017 9:14 PM * Full Code Date Activated Date Inactivated Comments 09/29/2017 1:25 AM 09/29/2017 7:45 AM Care Teams Clinic Clerk Relationship Specialty Start Date End Date Justen Gale MD [address] [facility] [address] [place] [address] PCP - General Cardiovascular Disease 09/14/17
== END 2024-05-15 02:32 | disposition home or self-care (01) ==
PROVIDERS: Emergency Provider Physician Assistant; PCP Internal Medicine
DX: M25.512 Pain in left shoulder (principal); Z79.4 Long term (current) use of insulin; Z85.3 Personal history of malignant neoplasm of breast; I50.9 Heart failure, unspecified; Z79.01 Long term (current) use of anticoagulants; M54.9 Dorsalgia, unspecified; G89.29 Other chronic pain; Z86.718 Personal history of other venous thrombosis and embolism; G47.33 Obstructive sleep apnea (adult) (pediatric); Z99.89 Dependence on other enabling machines and devices; Z86.711 Personal history of pulmonary embolism; E11.9 Type 2 diabetes mellitus without complications; Z87.891 Personal history of nicotine dependence
CPT/HCPCS: 36415; 71046; 73030; 80053; 84484; 85025; 85610; 85730; 93005; 99284; A9270

== ENCOUNTER 2024-06-20 11:41 | Emergency (ER) | payer MEDICARE, SELFPAY ==
[2024-06-20 11:57] VITALS: BP 147/97; PULSE 87; RESP 16; TEMP 36.7; O2SAT 99
--- NOTE | 2024-06-20 12:09 | ED.GENADULT ---
HPI - General Adult General Chief complaint: Urogenital-Female Stated complaint: UTI SYMPTOMS/R HIP PAIN Time Seen by Provider: 06/20/24 12:05 Source: patient, RN notes reviewed and old records reviewed Mode of arrival: ambulatory Limitations: no limitations History of Present Illness HPI narrative: 69 year old female who presents to [facility] care using a cane to assist with ambulation with complaints of urinary frequency and urgency for the past 4 days with history of past URI's and kidney stones. Patient also reports that she has pain to the right hip area and and also to her pelvis for the past 4 days. Patient reports history of previous back pain and sees pain management for her pain, has pain stimulator to her back but is turned off because is ineffective to help her pain. Patient reports no known injury to her hip. Patient has 1+ glucose in urine patient reports that she forgot to take her long acting insulin this morning. MD complaint: urinary urgency and frequency right hip and pelvis discomfort Onset (ago): day(s) (4) Location: right and lower extremity (hip and pelvis) Severity scale (1-10): 4 Quality: aching Exacerbating factors: movement and other (walking) Treatments prior to arrival: other (pain medication as prescribed) Related Data Home Medications ?Medication ?Instructions ?Recorded ?Confirmed ?Last Taken ?Type exemestane 25 mg tablet 25 mg PO 01/06/20 06/20/24 12/04/23 22:00 History insulin glargine 100 unit/mL (3 32 unit subcut QAM 01/06/20 06/20/24 12/04/23 11:00 History mL) subcutaneous pen (Lantus Solostar U-100 Insulin) ropinirole 5 mg tablet 5 mg PO 01/06/20 06/20/24 12/04/23 22:00 History insulin lispro 100 unit/mL 28 unit subcut TID 03/19/22 06/20/24 Unknown History subcutaneous pen (Humalog KwikPen (U-100) Insulin) oxybutynin chloride 15 mg 15 mg PO DAILY 11/06/22 06/20/24 12/04/23 11:00 History tablet,extended release 24 hr gabapentin 300 mg capsule 300 mg PO TID 06/25/23 06/20/24 12/04/23 22:00 History Allergies Allergy/AdvReac Type Severity Reaction Status Date / Time ceftriaxone Allergy Severe SOB Verified 06/20/24 11:54 cephalexin Allergy Severe Difficulty Verified 06/20/24 11:54 Breathing Cephalosporins Allergy Severe Difficulty Verified 06/20/24 11:54 Breathing lorazepam Allergy Severe Swelling Verified 06/20/24 11:54 trazodone Allergy Severe Swelling Verified 06/20/24 11:54 of Lip/Tongue/Throat metoclopramide Allergy Intermediate Other Verified 06/20/24 11:54 chlorhexidine Allergy Mild BLISTERING Verified 06/20/24 11:54 levofloxacin Allergy Mild Hives / Verified 06/20/24 11:54 Red Face ketorolac Allergy Itching Verified 06/20/24 11:54 latex Allergy Rash Verified 06/20/24 11:54 meropenem Allergy Rash Verified 06/20/24 11:54 nitrofurantoin Allergy Itching Verified 06/20/24 11:54 sulfamethoxazole (From Allergy Itching Verified 06/20/24 11:54 Sulfamethoxazole-Trimethoprim) trimethoprim (From Allergy Itching Verified 06/20/24 11:54 Sulfamethoxazole-Trimethoprim) oxycodone AdvReac Mild Vomiting Verified 06/20/24 11:54 amlodipine AdvReac Swelling Verified 06/20/24 11:54 lisinopril AdvReac Swelling Verified 06/20/24 11:54 pregabalin AdvReac Swelling Verified 06/20/24 11:54 reslizumab AdvReac Unknown Verified 06/20/24 11:54 Review of Systems Review of Systems: CONSTITUTIONAL: Denies fever, chills, or sweats. EYES: Denies visual changes, redness, or discharge. ENT: Denies rhinorrhea, congestion, sore throat, or otalgia. CARDIOVASCULAR: Denies chest pain, palpitations, or edema. RESPIRATORY: Denies cough or dyspnea. GASTROINTESTINAL: Denies abdominal pain, nausea, vomiting, or diarrhea. GENITOURINARY: Denies dysuria or visible hematuria, report urinary urgency and frequency SKIN: Denies rash or itching. MUSCULOSKELETAL:Reports chronic back pain, right hip joint pain,with pelvis pain or myalgia. NEUROLOGIC: Denies headache, numbness, or weakness. PSYCHIATRIC: Denies anxiety or depression. All systems reviewed & are unremarkable except as noted in HPI and below PMFSH Past Medical History Medical History Chronic anticoagulation Overactive bladder Type 2 diabetes mellitus Deep venous thrombosis Irritable bowel syndrome Restless leg syndrome Obstructive sleep apnea on CPAP Congestive heart failure Chronic back pain COVID-19 Collagenous colitis Morbid obesity Breast cancer Depression Anxiety Peripheral neuropathy Kidney stone Pulmonary embolism positive for coagulation workup Multiple thyroid nodules Surgical History Surgical History History of umbilical hernia repair History of colonoscopy Status post insertion of spinal cord stimulator History of cystoscopy History of ureter stent History of cholecystectomy History of bilateral mastectomy History of esophagogastroduodenoscopy (EGD) History of right oophorectomy History of total right knee replacement History of cardiac catheterization Reportedly negative for coronary artery disease. Family History Family History Mother Diabetes mellitus Acute myocardial infarction Cerebrovascular accident Hypertension Congestive heart failure Father Prostate carcinoma Sibling Breast cancer Acute myocardial infarction Chronic obstructive pulmonary disease Social History Social History Social History: Surrogate medical decision maker: Jimmie Marques, spouse. Code status: Full code. Smoking packs per day: 0 Smoking cigarettes per day: 0.0 Years smoked: 2 Smoking pack-years: 0.00 Smoking status: Former smoker Second hand tobacco smoke exposure: Yes Alcohol intake: never Substance use: never Substance use type: does not use Do You Feel Safe in your Home?: Yes Lack of Transportation: No Lack of Food: Never True Current Housing: I Have Housing Concerned About Future Housing: No Difficulty Paying Gas/Electric Bills: No Difficulty Paying for Meds: No Currently Unemployed: No Education: Decline to Answer Difficulty w/ Childcare or Family Care: No Living arrangements: with family Additional occupation/education comments: Disabled. Spiritual care concerns: No Comments At time of signature, agree with nursing past medical, surgical, social and family history. There is no relevant family history pertinent to the presenting complaint Exam Narrative: GENERAL: chronic ill appearing, well-nourished,obese, and in no acute distress. HEAD: Normocephalic, atraumatic. EYES: PERRLA and EOMI. ENT: Nares clear, no rhinorrhea or epistaxis. Mucous membranes moist.TM's normal with good light reflex, throat normal NECK: Supple.no lymphadenopathy CHEST: Clear to auscultation. No respiratory distress no ough noted SAO2 99% on room air. HEART: Regular rate and rhythm. No murmur heard. Normal peripheral pulses. ABDOMEN: Soft, nontender, nondistended, normal active bowel sounds. EXTREMITIES: Normal range of motion. No edema. Exception noted to limited ROM of right hip with increased pain with movement and ambulation, using cane to assist with ambulation. Patient reports some pelvis radiation, denies any pain radiating down leg. Patient has palpable pedal pulses with no acute edema to feet noted. Patient is diabetic and does have some stated neuropathy in lower extremities, is on daily anticoagulant. SKIN: Warm, dry, no rash. NEURO: No focal deficits. Alert and oriented x3. Course Course Emergency Course: Patient is aware of diagnosis, understands and agrees to treatment plan.? Anticipatory guidance given.? Patient agrees to follow-up as directed and is aware of reasons to seek care at the emergency department. Portions of this record may have been created with voice recognition software Level of Care: Express Care Visit Vital Signs Vital signs: Vital Signs Temperature 36.7 C 06/20/24 11:57 Pulse Rate 87 06/20/24 11:57 Respiratory Rate 16 06/20/24 11:57 Blood Pressure 147/97 H 06/20/24 11:57 Pulse Oximetry 99 06/20/24 11:57 Temperature 36.7 C 06/20/24 11:57 Pulse Rate 87 06/20/24 11:57 Respiratory Rate 16 06/20/24 11:57 Blood Pressure 147/97 H 06/20/24 11:57 Pulse Oximetry 99 06/20/24 11:57 Reviewed Medical Decision Making MDM Narrative Medical decision making narrative: Exam findings and imaging show no acute concerns or changes; patient is non-toxic appearing and is in no distress.? Patient is appropriate for outpatient treatment and follow-up Differential Diagnosis Differential Diagnosis: urinary frequency and urgency, right hip pain, pelvic discomfort, severe SI joint osteoarthritis Medical Records Medical records reviewed: Yes I reviewed the external patient's medical records. Vital Signs Vital Signs: Vital Signs Temperature 36.7 C 06/20/24 11:57 Pulse Rate 87 06/20/24 11:57 Respiratory Rate 16 06/20/24 11:57 Blood Pressure 147/97 H 06/20/24 11:57 Pulse Oximetry 99 06/20/24 11:57 Temperature 36.7 C 06/20/24 11:57 Pulse Rate 87 06/20/24 11:57 Respiratory Rate 16 06/20/24 11:57 Blood Pressure 147/97 H 06/20/24 11:57 Pulse Oximetry 99 06/20/24 11:57 reviewed Lab Data Lab results reviewed: Yes I reviewed the patient's lab results. Lab results narrative: urine dip: urine color yellow, clarity clear, pH 5.5, specific gravity 1.015 urine protein negative urine glucose 1+ ketones negative urine blood trace, nitrate negative, bilirubin negative, urobilinogen 0.2, leukocyte negative Labs: Lab Results 06/20/24 Range/Units 12:34 POC Urine Color Yellow POC Urine Clarity Clear POC Urine pH 5.5 POC Ur Specif Pansey 1.015 POC Urine Protein Negative (Negative) POC Ur Glucose (UA) 1+ (Negative) POC Urine Ketones Negative (Negative) POC Urine Blood Trace (Negative) POC Urine Nitrite Negative (Negative) POC Urine Bilirubin Negative (Negative) POC Urine Urobilinogen 0.2 POC U Leukocyte Esteras Negative (Negative) reviewed Imaging Data Attestation: I personally reviewed and interpreted this imaging study as follows: My impression: mild osteoarthritis of hips, severe SI joint osteoarthritis Radiologist's impression: [address] [address] XRay Report Signed Patient: Karly Marques : 1955 MR#: [id number] Age: 69 Acct:[id number] Loc: [facility] ADM Date: 06/20/24Attending Dr: Ordering Physician: Summer Cameron APRN Date of Service: 06/20/24 Procedure(s): XR hip RT 2V w AP pelvis Accession Number(s): [id number] cc: Shahla, Justen Spicer MD; Summer Cameron APRN~ EXAMINATION: XR hip RT 2V w AP pelvis DATE: 06/20/2024 12:44 INDICATION: Acute right hip pain. TECHNIQUE: An anteroposterior view of the pelvis and 2 views of right hip were obtained. COMPARISON: Pelvis radiograph 12/01/2020 FINDINGS: Alignment is normal. No fracture. There is mild osteoarthritis of the hips. Osteitis pubis is noted. 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 Surgical clips overlie the pelvis. Electronic device overlies left abdomen. IMPRESSION: 1. Mild osteoarthritis of the hips. Reviewed, dictated and finalized at location A. 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 It is intended for [id number] communication. It is written in medical language and may contain unfamiliar abbreviations or verbiage. Medical documents are intended to carry relevant information, facts as evident, and the clinical opinion of the practitioner at the time of the encounter. This report may have been done utilizing a voice recognition system. Attempts have been made to correct errors. However, there may be uncorrected grammatical, spelling, and recognition errors present. The file time of this note does not necessarily represent the time of service. Dictated By: Deon Kidd MD 06/20/24 1248 Signed By: <Electronically signed by Deon Kidd MD in OV> Critical Care Time Critical Care Time Critical Care Time: No Discharge Plan Discharge Clinical Impression: Hip pain, right, Urinary frequency Patient Disposition: Home, Self-Care Condition: Stable Instructions: Antibiotic Form, Hip Pain (ED) Additional Instructions: Ice and heat to the area for 20-30 minutes Gentle stretching exercises Gentle massage Caution with lifting, bending, stooping, twisting Avoid pushing, pulling take muscle relaxants as directed--caution drowsiness and no driving or alcohol Anti-inflammatory medicine as directed--take with food He may take the muscle relaxant and anti-inflammatory at the same time Pain medicine as directed for severe pain--caution drowsiness-no driving or alcohol. If this medicine is a narcotic, you can become constipated. He may want to start a laxative right away. patient does have pain medication at home Follow-up with your PCP if not improving in 5-7 days Increase fluids especially cranberry juice and water Avoid caffeine and carbonated beverages Tylenol/ibuprofen for pain or fever Follow-up with her primary care provider if further problems or concerns Recheck if you have fever over 101, nausea and vomiting. If your symptoms persist, change or worsen significantly before you can contact your personal physician then please, without delay, go to the emergency department for further evaluation. Follow-up with PCP in 7-10 days or sooner if needed Follow up with PCP soon in regards to your blood pressure which is elevated above threshold for referral. Blood pressure above 120/80 may indicate pre-hypertension.1 Patient Language: Romansh Prescriptions: New cyclobenzaprine 10 mg tablet 10 mg PO TID PRN (Reason: muscle spasm) Qty: 20 0RF Rx Instructions: no driving or alcohol while taking this medication No Action gabapentin 300 mg capsule 300 mg PO TID exemestane 25 mg tablet 25 mg PO HS ropinirole 5 mg tablet 5 mg PO HS insulin glargine [Lantus Solostar U-100 Insulin] 100 unit/mL (3 mL) insulin pen 32 unit SUBCUT QAM insulin lispro [Humalog KwikPen Insulin] 100 unit/mL insulin pen 28 unit SUBCUT TID albuterol sulfate 90 mcg/actuation HFA aerosol inhaler 1 inh inhalation QID PRN (Reason: shortness of breath or wheezing) Qty: 6.7 0RF oxybutynin chloride 15 mg tablet extended release 24hr 15 mg PO DAILY acetaminophen 325 mg Tablet 650 mg PO Q6H PRN (Reason: Pain 1-5 or Fever) Qty: 30 0RF Xarelto 20 mg tablet 20 mg PO 1700 Qty: 30 0RF hydrocodone-acetaminophen 10-325 mg tablet 1 tablet PO Q6H PRN (Reason: pain (scale score 7-10)) Qty: 10 0RF Follow-up/Referrals: Shahla,Justen Spicer MD [Primary Care Provider] - Time of Disposition: 13:09 Quality [place] Coma Scale Eyes: Open Verbal: Oriented and Alert Motor: Follows Commands [place] Coma Total Score: 15
[2024-06-20 12:38] LABS: EDUAAPPEAR Clear; EDUABILI Negative (Negative); EDUABLOOD Trace (Negative); EDUACOLOR1 Yellow; EDUAGLUCOSE 1+ (Negative); EDUAKETONE Negative (Negative); EDUALEUKO Negative (Negative); EDUANITRATE Negative (Negative); EDUAPH 5.5; EDUAPROTEIN Negative (Negative); EDUASPGRAVITY 1.015; EDUAUROBILI 0.2
== END 2024-06-20 13:13 | disposition home or self-care (01) ==
PROVIDERS: Emergency Provider Registered Nurse; PCP Internal Medicine
DX: M25.551 Pain in right hip (principal); R35.0 Frequency of micturition; M16.0 Bilateral primary osteoarthritis of hip; G25.81 Restless legs syndrome; G47.33 Obstructive sleep apnea (adult) (pediatric); I50.9 Heart failure, unspecified; E11.42 Type 2 diabetes mellitus with diabetic polyneuropathy; Z79.4 Long term (current) use of insulin; Z86.718 Personal history of other venous thrombosis and embolism; Z86.711 Personal history of pulmonary embolism; E66.01 Morbid (severe) obesity due to excess calories; Z85.3 Personal history of malignant neoplasm of breast; Z96.651 Presence of right artificial knee joint; Z87.891 Personal history of nicotine dependence
CPT/HCPCS: 73502; 81003; 87086; 99213; G0463

== ENCOUNTER 2024-06-21 11:47 | Emergency (ER) | payer MEDICARE, SELFPAY ==
[2024-06-21 11:49] VITALS: BP 159/67; PULSE 81; RESP 18; TEMP 37
--- NOTE | 2024-06-21 13:13 | ED.LOWEXIN ---
HPI - Extremity Injury (Lower) General Chief Complaint: Extremity Injury, Lower Stated Complaint: hip pain Time Seen by Provider: 06/21/24 13:13 Source: patient Mode of arrival: ambulatory Limitations: no limitations History of Present Illness HPI Narrative: 69 YEARS OLD WHITE FEMALE CAME TO THE ED BY PRIVATE CAR WITH HER COMPLAINING OF RIGHT HIP PAIN STARTED 4 DAYS AGO, NO TRAUMA. HISTORY OF DIABETES, BILATERAL MASTECTOMY 8 YEARS AGO, HISTORY OF CHRONIC LEFT LOWER BACK PAIN CURRENTLY ON HYDROCODONE, BEEN MANAGED BY PAIN MANAGEMENT PHYSICIAN. PATIENT WAS SEEN AT URGENT CARE YESTERDAY, X-RAY OF THE LEFT HIP SHOWED NO ACUTE ABNORMALITIES. PATIENT REPORT INABILITY TO STAND UP AND WALK OR SLEEP BECAUSE OF THE CONSTANT PAIN AT THE RIGHT HIP RADIATING TO RIGHT LOWER QUADRANT SHE DENIES ANY NUMBNESS OR TINGLING OR FOCAL WEAKNESS Related Data Home Medications ?Medication ?Instructions ?Recorded ?Confirmed ?Last Taken ?Type exemestane 25 mg tablet 25 mg PO HS 01/06/20 06/20/24 12/04/23 22:00 History insulin glargine 100 unit/mL (3 32 unit subcut QAM 01/06/20 06/20/24 12/04/23 11:00 History mL) subcutaneous pen (Lantus Solostar U-100 Insulin) ropinirole 5 mg tablet 5 mg PO HS 01/06/20 06/20/24 12/04/23 22:00 History insulin lispro 100 unit/mL 28 unit subcut TID 03/19/22 06/20/24 Unknown History subcutaneous pen (Humalog KwikPen (U-100) Insulin) oxybutynin chloride 15 mg 15 mg PO DAILY 11/06/22 06/20/24 12/04/23 11:00 History tablet,extended release 24 hr gabapentin 300 mg capsule 300 mg PO TID 06/25/23 06/20/24 12/04/23 22:00 History Allergies Allergy/AdvReac Type Severity Reaction Status Date / Time ceftriaxone Allergy Severe SOB Verified 06/20/24 11:54 cephalexin Allergy Severe Difficulty Verified 06/20/24 11:54 Breathing Cephalosporins Allergy Severe Difficulty Verified 06/20/24 11:54 Breathing lorazepam Allergy Severe Swelling Verified 06/20/24 11:54 trazodone Allergy Severe Swelling Verified 06/20/24 11:54 of Lip/Tongue/Throat metoclopramide Allergy Intermediate Other Verified 06/20/24 11:54 chlorhexidine Allergy Mild BLISTERING Verified 06/20/24 11:54 levofloxacin Allergy Mild Hives / Verified 06/20/24 11:54 Red Face ketorolac Allergy Itching Verified 06/20/24 11:54 latex Allergy Rash Verified 06/20/24 11:54 meropenem Allergy Rash Verified 06/20/24 11:54 nitrofurantoin Allergy Itching Verified 06/20/24 11:54 sulfamethoxazole (From Allergy Itching Verified 06/20/24 11:54 Sulfamethoxazole-Trimethoprim) trimethoprim (From Allergy Itching Verified 06/20/24 11:54 Sulfamethoxazole-Trimethoprim) oxycodone AdvReac Mild Vomiting Verified 06/20/24 11:54 amlodipine AdvReac Swelling Verified 06/20/24 11:54 lisinopril AdvReac Swelling Verified 06/20/24 11:54 pregabalin AdvReac Swelling Verified 06/20/24 11:54 reslizumab AdvReac Unknown Verified 06/20/24 11:54 Review of Systems Review of Systems: All systems reviewed & are unremarkable except as noted in HPI and below PMFSH Past Medical History Medical History Chronic anticoagulation Overactive bladder Type 2 diabetes mellitus Deep venous thrombosis Irritable bowel syndrome Restless leg syndrome Obstructive sleep apnea on CPAP Congestive heart failure Chronic back pain COVID-19 Collagenous colitis Morbid obesity Breast cancer Depression Anxiety Peripheral neuropathy Kidney stone Pulmonary embolism positive for coagulation workup Multiple thyroid nodules Surgical History Surgical History History of umbilical hernia repair History of colonoscopy Status post insertion of spinal cord stimulator History of cystoscopy History of ureter stent History of cholecystectomy History of bilateral mastectomy History of esophagogastroduodenoscopy (EGD) History of right oophorectomy History of total right knee replacement History of cardiac catheterization Reportedly negative for coronary artery disease. Family History Family History Mother Diabetes mellitus Acute myocardial infarction Cerebrovascular accident Hypertension Congestive heart failure Father Prostate carcinoma Sibling Breast cancer Acute myocardial infarction Chronic obstructive pulmonary disease Social History Social History Social History: Surrogate medical decision maker: Jimmie Hillmer, spouse. Code status: Full code. Smoking packs per day: 0 Smoking cigarettes per day: 0.0 Years smoked: 2 Smoking pack-years: 0.00 Smoking status: Former smoker Second hand tobacco smoke exposure: Yes Alcohol intake: never Substance use: never Substance use type: does not use Do You Feel Safe in your Home?: Yes Lack of Transportation: No Lack of Food: Never True Current Housing: I Have Housing Concerned About Future Housing: No Difficulty Paying Gas/Electric Bills: No Difficulty Paying for Meds: No Currently Unemployed: No Education: Decline to Answer Difficulty w/ Childcare or Family Care: No Living arrangements: with family Additional occupation/education comments: Disabled. Spiritual care concerns: No Exam Narrative: GENERAL APPEARANCE: WELL-DEVELOPED, WELL-NOURISHED SKIN: NORMAL COLOR HEAD: NORMOCEPHALIC, NONTRAUMATIC EYES: CLEAR CONJUNCTIVA ENT: OROPHARYNX NORMAL, EARS NORMAL, NOSE NORMAL NECK: SUPPLE, NONTENDER CHEST AND RESPIRATORY: AIRWAY PATENT, NO RESPIRATORY DISTRESS, NO ACCESSORY MUSCLE USE HEART: REGULAR RATE/RHYTHM ABDOMEN: SOFT, NONTENDER, NO ORGANOMEGALY, QUIET BOWEL SOUNDS VASCULAR: NORMAL PERIPHERAL PULSES, NORMAL CAPILLARY REFILL. MUSCULOSKELETAL: SEVERE LIMITED RANGE OF MOTION ON THE RIGHT HIP NEUROLOGIC: ALERT AND ORIENTED ?3, SCHEDULING AGENT IS NORMAL TESTED, NO GROSS MOTOR DEFICIT Course Vital Signs Vital signs: Vital Signs Temperature 37.0 C 06/21/24 11:49 Pulse Rate 81 06/21/24 11:49 Respiratory Rate 18 06/21/24 11:49 Blood Pressure 159/67 H 06/21/24 11:49 Oxygen Delivery Room Air 06/21/24 11:49 Temperature 37.0 C 06/21/24 11:49 Pulse Rate 77 06/21/24 13:30 Respiratory Rate 15 06/21/24 13:30 Blood Pressure 120/67 06/21/24 13:30 Pulse Oximetry 100 06/21/24 13:30 Oxygen Delivery Room Air 06/21/24 11:49 MDM - Extremity Injury (Lower) MDM Narrative Medical decision making narrative: PATIENT PRESENTS WITH NONTRAUMATIC RIGHT HIP PAIN STARTED 4 DAYS AGO VITAL SIGNS ARE STABLE PHYSICAL EXAMINATION SHOWING SEVERE LIMITED RANGE OF MOTION ON THE RIGHT HIP DIFFERENTIAL DIAGNOSIS ARTHRITIS, METASTASIS SECONDARY TO BREAST CANCER, INTRA-ABDOMINAL PATHOLOGY RADIATING TO RIGHT HIP, URINARY TRACT INFECTION BLOOD WORKUP TODAY INCLUDES CBC, CMP, LIPASE SHOWED URINALYSIS SHOWED CT ABDOMEN AND PELVIS WITH IV CONTRAST AND RIGHT HIP SHOWED Lab Data 06/21/24 13:43 06/21/24 13:43 Labs: Lab Results 06/21/24 Range/Units 13:43 WBC 9.2 (4.5-10.0) K/mm3 RBC 4.28 (4.2-5.4) M/mm3 Hgb 12.8 (12.0-15.0) g/dL Hct 39.6 (37.0-47.0) % MCV 92.5 (80-100) fl MCH 29.9 (26-34) pg MCHC 32.3 (32-36) g/dl RDW 13.4 (11.5-14.5) % Plt Count 230 (150-375) k/mm3 MPV 9.4 (7.4-10.4) fl Immature Gran % (Auto) 0.3 (0-0.5) % Neut % (Auto) 56.7 (45.5-73.1) % Lymph % (Auto) 32.4 (18.3-44.2) % Chaves % (Auto) 7.6 (2.6-8.5) % Eos % (Auto) 2.7 (0-4.4) % Baso % (Auto) 0.3 (0.2-1.2) % Lymph # (Auto) 2.98 (0.9-3.2) K/mm3 Chaves # (Auto) 0.7 H (0.1-0.6) K/mm3 Eos # (Auto) 0.3 (0-0.3) K/mm3 Baso # (Auto) 0.0 (0.0-0.1) K/mm3 Abs Immat Gran (auto) 0.03 (0.00-0.031) K/mm3 Absolute Neuts (auto) 5.2 (1.3-6.7) K/mm3 Absolute Nucleated RBC 0.000 (0.0-0.012) K/mm3 Nucleated RBC % 0.0 (0.0-0.2) % Sodium 139 (137-145) mmol/L Potassium 4.0 (3.4-5.0) mmol/L Chloride 103 (98-107) mmol/L Carbon Dioxide 29 (22-30) mmol/L Anion Gap 7 (4-12) mmol/L BUN 16 (7-17) mg/dL Creatinine 0.63 L (0.7-1.0) mg/dL Estim Creat Clear Calc 89 ml/min Estimated GFR > 60 (59 - ) Glucose 211 H (65-110) mg/dL Calcium 9.4 (8.4-10.2) mg/dL Total Bilirubin 0.6 (0.2-1.3) mg/dL AST 25 (14-36) U/L ALT 22 (6-35) U/L Alkaline Phosphatase 71 (38-126) U/L Total Protein 8.0 (6.3-8.2) g/dL Albumin 3.6 (3.5-5.1) g/dL Lipase 48 (23-300) U/L Imaging Data Radiologist's impression: Impressions Abdomen/Pelvis CT 06/21/24 14:33 IMPRESSION: 1. No specific etiology for the patient's symptoms. Critical Care Time Critical Care Time Critical Care Time: No Discharge Plan Discharge Clinical Impression: Hip pain Patient Disposition: Home, Self-Care Condition: Stable Instructions: Hip Pain (ED) Patient Language: Slovenian Prescriptions: No Action gabapentin 300 mg capsule 300 mg PO TID cyclobenzaprine 10 mg tablet 10 mg PO TID PRN (Reason: muscle spasm) Qty: 20 0RF Rx Instructions: no driving or alcohol while taking this medication exemestane 25 mg tablet 25 mg PO HS ropinirole 5 mg tablet 5 mg PO HS insulin glargine [Lantus Solostar U-100 Insulin] 100 unit/mL (3 mL) insulin pen 32 unit SUBCUT QAM insulin lispro [Humalog KwikPen Insulin] 100 unit/mL insulin pen 28 unit SUBCUT TID albuterol sulfate 90 mcg/actuation HFA aerosol inhaler 1 inh inhalation QID PRN (Reason: shortness of breath or wheezing) Qty: 6.7 0RF oxybutynin chloride 15 mg tablet extended release 24hr 15 mg PO DAILY acetaminophen 325 mg Tablet 650 mg PO Q6H PRN (Reason: Pain 1-5 or Fever) Qty: 30 0RF Xarelto 20 mg tablet 20 mg PO 1700 Qty: 30 0RF hydrocodone-acetaminophen 10-325 mg tablet 1 tablet PO Q6H PRN (Reason: pain (scale score 7-10)) Qty: 10 0RF Follow-up/Referrals: Shahla,Justen Spicer MD [Primary Care Provider] -
[2024-06-21 13:30] VITALS: BP 120/67; PULSE 77; RESP 15; O2SAT 100
[2024-06-21] MEDS: SODIUM CHLORIDE 0.9% IV 1,000 ML 999 ML IV CONT (13:49)
[2024-06-21 13:51] LABS: Basophils Percent Auto 0.3 % (0.2-1.2); Eosinophils Absolute Auto 0.3 K/mm3 (0-0.3); Eosinophils Percent Auto 2.7 % (0-4.4); Hematocrit 39.6 % (37.0-47.0); Hemoglobin 12.8 g/dL (12.0-15.0); Immature Granulocyte Absolute 0.03 K/mm3 (0.00-0.031); Immature Granulocyte Percent A 0.3 % (0-0.5); Lymphocytes Absolute Auto 2.98 K/mm3 (0.9-3.2); Lymphocytes Percent Auto 32.4 % (18.3-44.2); Mean Corpuscular HGB Conc 32.3 g/dl (32-36); Mean Corpuscular Hemoglobin 29.9 pg (26-34); Mean Corpuscular Volume 92.5 fl (80-100); Mean Platelet Volume 9.4 fl (7.4-10.4); Monocytes Absolute Auto 0.7 K/mm3 (0.1-0.6); Monocytes Percent Auto 7.6 % (2.6-8.5); Neutrophils Absolute Auto 5.2 K/mm3 (1.3-6.7); Neutrophils Percent Auto 56.7 % (45.5-73.1); Platelet Count Result 230 k/mm3 (150-375); Red Blood Count 4.28 M/mm3 (4.2-5.4); Red Cell Distribution Width 13.4 % (11.5-14.5); White Blood Count 9.2 K/mm3 (4.5-10.0)
[2024-06-21] MEDS: ONDANSETRON INJ 4 MG/2 ML VIAL IV PUSH (13:52)
[2024-06-21] MEDS: HYDROmorphone HCL INJ (*CRX) 1 MG/ML SYR 0.5 MG IV PUSH ×2 (13:52→15:23)
[2024-06-21 14:04] LABS: Alanine Aminotransferase 22 U/L (6-35); Albumin Level 3.6 g/dL (3.5-5.1); Alkaline Phosphatase 71 U/L (38-126); Anion Gap 7 mmol/L (4-12); Aspartate Amino Transferase 25 U/L (14-36); Bilirubin,Total 0.6 mg/dL (0.2-1.3); Blood Urea Nitrogen 16 mg/dL (7-17); Calcium 9.4 mg/dL (8.4-10.2); Carbon Dioxide 29 mmol/L (22-30); Chloride 103 mmol/L (98-107); Estimated CRCL calculation 89 ml/min; Estimated Glomerular Filt Rate > 60; Glucose 211 mg/dL (65-110); Lipase 48 U/L (23-300); Sodium 139 mmol/L (137-145)
[2024-06-21 14:45] VITALS: BP 132/81; PULSE 76; RESP 18; O2SAT 100
--- NOTE | 2024-06-21 14:54 | PC.NURSE ---
Discussed with patient need for Urine specimen, talked to her about straight cath VS Purewick. Patient would rather attempt Purewick and save catheterization for later if needed. Purewick applied per protocol and attached to wall suction
[2024-06-21 16:00] VITALS: BP 134/78; PULSE 76; RESP 16; TEMP 36.6; O2SAT 100
== END 2024-06-21 16:04 | disposition home or self-care (01) ==
PROVIDERS: Emergency Provider Emergency Medicine; PCP Internal Medicine
DX: M25.551 Pain in right hip (principal); I50.9 Heart failure, unspecified; E11.42 Type 2 diabetes mellitus with diabetic polyneuropathy; E66.01 Morbid (severe) obesity due to excess calories; Z68.43 Body mass index [BMI] 50.0-59.9, adult; G47.33 Obstructive sleep apnea (adult) (pediatric); G25.81 Restless legs syndrome; N32.81 Overactive bladder; K58.9 Irritable bowel syndrome, unspecified; F41.9 Anxiety disorder, unspecified; F32.A Depression, unspecified; Z96.651 Presence of right artificial knee joint; Z85.3 Personal history of malignant neoplasm of breast; Z86.718 Personal history of other venous thrombosis and embolism; Z87.442 Personal history of urinary calculi; Z86.16 Personal history of COVID-19; Z86.711 Personal history of pulmonary embolism; Z87.891 Personal history of nicotine dependence; Z90.13 Acquired absence of bilateral breasts and nipples; Z90.49 Acquired absence of other specified parts of digestive tract; Z90.721 Acquired absence of ovaries, unilateral; Z79.4 Long term (current) use of insulin; Z79.01 Long term (current) use of anticoagulants; Z79.899 Other long term (current) drug therapy
CPT/HCPCS: 36415; 74177; 80053; 83690; 85025; 96361; 96374; 96375; 96376; 99284; J1171; J2405; J7030; Q9967

== ENCOUNTER 2024-07-10 14:31 | Emergency (ER) | payer MEDICARE, SELFPAY ==
--- NOTE | ~2024-07-10 | XR_ITS ---
HISTORY: Lt 5th toe onset this A.M. with red pain swelling, no injury COMPARISON: None TECHNIQUE: 3 views of the left fifth toe were performed. FINDINGS: No acute or subacute fracture. Joint spaces are preserved and alignment is maintained. Soft tissues are without radiopaque foreign body or significant calcification. Age-appropriate mineralization. IMPRESSION: No acute or subacute fracture. Reviewed, dictated and finalized at location A.
[2024-07-10 14:48] VITALS: BP 147/78; PULSE 81; RESP 16; TEMP 36.4; O2SAT 99
--- NOTE | 2024-07-10 14:52 | ED.EXTPRO ---
HPI - Extremity Problem General Chief complaint: Extremity Problem,Nontraumatic Stated complaint: L TOE PAIN/REDNESS Time Seen by Provider: 07/10/24 14:52 Source: patient Mode of arrival: ambulatory Limitations: no limitations History of Present Illness HPI Narrative: 69 y/o female with hx DM presented for c/o left foot little toe redness, swelling and pain. Onset this morning when she woke. Pain is worse at the end of the toe with any movement or light touch. Denies known injury or wounds. Denies drainage. Took Tylenol just prior to arrival. Related Data Home Medications ?Medication ?Instructions ?Recorded ?Confirmed ?Last Taken ?Type exemestane 25 mg tablet 25 mg PO HS 01/06/20 06/20/24 12/04/23 22:00 History insulin glargine 100 unit/mL (3 32 unit subcut QAM 01/06/20 06/20/24 12/04/23 11:00 History mL) subcutaneous pen (Lantus Solostar U-100 Insulin) ropinirole 5 mg tablet 5 mg PO HS 01/06/20 06/20/24 12/04/23 22:00 History insulin lispro 100 unit/mL 28 unit subcut TID 03/19/22 06/20/24 Unknown History subcutaneous pen (Humalog KwikPen (U-100) Insulin) oxybutynin chloride 15 mg 15 mg PO DAILY 11/06/22 06/20/24 12/04/23 11:00 History tablet,extended release 24 hr gabapentin 300 mg capsule 300 mg PO TID 06/25/23 06/20/24 12/04/23 22:00 History Allergies Allergy/AdvReac Type Severity Reaction Status Date / Time ceftriaxone Allergy Severe SOB Verified 07/10/24 14:53 cephalexin Allergy Severe Difficulty Verified 07/10/24 14:53 Breathing Cephalosporins Allergy Severe Difficulty Verified 07/10/24 14:53 Breathing lorazepam Allergy Severe Swelling Verified 07/10/24 14:53 trazodone Allergy Severe Swelling Verified 07/10/24 14:53 of Lip/Tongue/Throat metoclopramide Allergy Intermediate Other Verified 07/10/24 14:53 chlorhexidine Allergy Mild BLISTERING Verified 07/10/24 14:53 levofloxacin Allergy Mild Hives / Verified 07/10/24 14:53 Red Face ketorolac Allergy Itching Verified 07/10/24 14:53 latex Allergy Rash Verified 07/10/24 14:53 meropenem Allergy Rash Verified 07/10/24 14:53 nitrofurantoin Allergy Itching Verified 07/10/24 14:53 sulfamethoxazole (From Allergy Itching Verified 07/10/24 14:53 Sulfamethoxazole-Trimethoprim) trimethoprim (From Allergy Itching Verified 07/10/24 14:53 Sulfamethoxazole-Trimethoprim) oxycodone AdvReac Mild Vomiting Verified 07/10/24 14:53 amlodipine AdvReac Swelling Verified 07/10/24 14:53 lisinopril AdvReac Swelling Verified 07/10/24 14:53 pregabalin AdvReac Swelling Verified 07/10/24 14:53 reslizumab AdvReac Unknown Verified 07/10/24 14:53 Review of Systems Review of Systems: CONSTITUTIONAL: Denies body aches, fever, chills CARDIOVASCULAR: Denies chest pain, palpitations, or edema. RESPIRATORY: Denies cough or dyspnea. GASTROINTESTINAL: Denies abdominal pain, nausea, vomiting, or diarrhea. MUSCULOSKELETAL: reports left little toe pain and swelling NEUROLOGIC: Denies headache, numbness, tingling, or weakness. All systems reviewed & are unremarkable except as noted in HPI and below PMFSH Past Medical History Medical History Chronic anticoagulation Overactive bladder Type 2 diabetes mellitus Deep venous thrombosis Irritable bowel syndrome Restless leg syndrome Obstructive sleep apnea on CPAP Congestive heart failure Chronic back pain COVID-19 Collagenous colitis Morbid obesity Breast cancer Depression Anxiety Peripheral neuropathy Kidney stone Pulmonary embolism positive for coagulation workup Multiple thyroid nodules Surgical History Surgical History History of umbilical hernia repair History of colonoscopy Status post insertion of spinal cord stimulator History of cystoscopy History of ureter stent History of cholecystectomy History of bilateral mastectomy History of esophagogastroduodenoscopy (EGD) History of right oophorectomy History of total right knee replacement History of cardiac catheterization Reportedly negative for coronary artery disease. Family History Family History Mother Diabetes mellitus Acute myocardial infarction Cerebrovascular accident Hypertension Congestive heart failure Father Prostate carcinoma Sibling Breast cancer Acute myocardial infarction Chronic obstructive pulmonary disease Social History Social History Social History: Surrogate medical decision maker: Jimmie Marques, spouse. Code status: Full code. Smoking packs per day: 0 Smoking cigarettes per day: 0.0 Years smoked: 2 Smoking pack-years: 0.00 Smoking status: Former smoker Second hand tobacco smoke exposure: Yes Alcohol intake: never Substance use: never Substance use type: does not use Do You Feel Safe in your Home?: Yes Lack of Transportation: No Lack of Food: Never True Current Housing: I Have Housing Concerned About Future Housing: No Difficulty Paying Gas/Electric Bills: No Difficulty Paying for Meds: No Currently Unemployed: No Education: Decline to Answer Difficulty w/ Childcare or Family Care: No Living arrangements: with family Additional occupation/education comments: Disabled. Spiritual care concerns: No Comments At time of signature, I have reviewed and agree with nursing past medical, surgical, social and family history unless otherwise noted. Please see nursing chart for further information. There is no relevant family history pertinent to the presenting complaint Exam Narrative: GENERAL: appears in pain, no distress CHEST: Speaks in full sentences. No respiratory distress. HEART: Regular rate and rhythm. Normal and equal peripheral pulses. EXTREMITIES: Left foot has normal strength and sensation. Left 5th toe erythematous, mild swelling, and tender with any palpation over the distal phalanx. Nontender MTP. normal range of motion, but endorses pain with movement of 5th toe. No open wounds, no drainage or streaking. Skin of cuticle area is dry. No obvious deformity. pulse palpable and equal bilaterally, skin warm, dry, pink. Capillary refill less than 3 seconds. SKIN: Warm, dry NEURO: Alert and oriented x3. PSYCH: Normal mood and affect Course Course Emergency Course: Patient is aware of diagnosis, understands and agrees to treatment plan. Anticipatory guidance given. Patient agrees to follow-up as directed and is aware of reasons to seek care at the emergency department. Portions of this record may have been created with voice recognition software Level of Care: Express Care Visit Vital Signs Vital signs: Vital Signs Temperature 97.5 F L 07/10/24 14:48 Pulse Rate 81 07/10/24 14:48 Respiratory Rate 16 07/10/24 14:48 Blood Pressure 147/78 H 07/10/24 14:48 Pulse Oximetry 99 03/19/25 14:48 Temperature 97.5 F L 07/10/24 14:48 Pulse Rate 81 07/10/24 14:48 Respiratory Rate 16 07/10/24 14:48 Blood Pressure 147/78 H 07/10/24 14:48 Pulse Oximetry 99 07/10/24 14:48 Oxygen Delivery Room Air 07/10/24 14:49 Reviewed MDM - Extremity (Nontraumatic) MDM Narrative Medical decision making narrative: Discussed physical exam findings; left 5th toe with erythema, swelling and pain with light palpation. Will treat for gout given will also cover for cellulitis of the toe. Advised supportive measures and signs/symptoms to go to the ER. Pt is appropriate for outpt treatment and f/u. Differential Diagnosis Differential diagnosis: Likely gout and cellulitis Imaging Data Radiologist's impression: Patient: Karly Marques : 1955 MR#: [id number] Age: 69 Acct:[id number] Loc: [facility] ADM Date: 07/10/24Attending Dr: Ordering Physician: Ricarda Jarquin APRN Date of Service: 07/10/24 Procedure(s): XR toe 5th LT min 2V Accession Number(s): [id number] cc: Ricarda Jarquin APRN; Shahla, Justen Spicer MD~ HISTORY: Lt 5th toe onset this A.M. with red pain swelling, no injury COMPARISON: None TECHNIQUE: 3 views of the left fifth toe were performed. FINDINGS: No acute or subacute fracture. Joint spaces are preserved and alignment is maintained. Soft tissues are without radiopaque foreign body or significant calcification. Age-appropriate mineralization. IMPRESSION: No acute or subacute fracture. Discharge Plan Discharge Clinical Impression: Pain of toe of left foot Patient Disposition: Home, Self-Care Condition: Stable Instructions: Antibiotic Form, Cellulitis (ED), Gout (ED) Additional Instructions: Gout is a form of inflammatory?arthritis that causes pain and swelling in your joints. A buildup of excess uric acid in your body causes gout. Your body naturally makes uric acid when it breaks down chemicals called purines found in certain foods and drinks. Your kidneys usually filter uric acid out of your blood. Gout symptoms come and go in episodes called flares or gout attacks.?Gout attacks usually last a week or two. You might have some flares that last longer than others, and some might cause more severe symptoms. Between attacks, you might not experience any gout symptoms. Risks include: Parent/grandparent with gout Eating a lot of animal proteins ? especially animal flesh, shellfish and foods that contain organ meat. Drinking alcohol regularly. Taking a diuretic medication (water pills). Taking immunosuppressants Take medication as directed Recommend low purine diet Keep the foot elevated to reduce pain/swelling Keep the foot clean and dry Follow up with primary care provider in 1 week Go to the ER for worsening symptoms or concerns Patient Language: Nepalese Prescriptions: New clindamycin HCl [Cleocin HCl] 300 mg capsule 300 mg PO Q8H 7 Days Qty: 21 0RF methylprednisolone [Medrol (Nam)] 4 mg tablets,dose pack See Rx Instructions .ROUTE .COMPLEX Qty: 21 0RF Rx Instructions: orally per package directions No Action gabapentin 300 mg capsule 300 mg PO TID cyclobenzaprine 10 mg tablet 10 mg PO TID PRN (Reason: muscle spasm) Qty: 20 0RF Rx Instructions: no driving or alcohol while taking this medication exemestane 25 mg tablet 25 mg PO HS ropinirole 5 mg tablet 5 mg PO HS insulin glargine [Lantus Solostar U-100 Insulin] 100 unit/mL (3 mL) insulin pen 32 unit SUBCUT QAM insulin lispro [Humalog KwikPen Insulin] 100 unit/mL insulin pen 28 unit SUBCUT TID albuterol sulfate 90 mcg/actuation HFA aerosol inhaler 1 inh inhalation QID PRN (Reason: shortness of breath or wheezing) Qty: 6.7 0RF oxybutynin chloride 15 mg tablet extended release 24hr 15 mg PO DAILY acetaminophen 325 mg Tablet 650 mg PO Q6H PRN (Reason: Pain 1-5 or Fever) Qty: 30 0RF Xarelto 20 mg tablet 20 mg PO 1700 Qty: 30 0RF hydrocodone-acetaminophen 10-325 mg tablet 1 tablet PO Q6H PRN (Reason: pain (scale score 7-10)) Qty: 10 0RF Follow-up/Referrals: Shahla,Justen Spicer MD [Primary Care Provider] - Time of Disposition: 15:42
== END 2024-07-10 15:45 | disposition home or self-care (01) ==
PROVIDERS: Emergency Provider Nurse Practitioner Family; PCP Internal Medicine
DX: M79.675 Pain in left toe(s) (principal); Z87.891 Personal history of nicotine dependence; E11.42 Type 2 diabetes mellitus with diabetic polyneuropathy; Z79.4 Long term (current) use of insulin; G47.33 Obstructive sleep apnea (adult) (pediatric); I50.9 Heart failure, unspecified; E66.01 Morbid (severe) obesity due to excess calories; Z68.43 Body mass index [BMI] 50.0-59.9, adult; N32.81 Overactive bladder; K58.9 Irritable bowel syndrome, unspecified; Z86.16 Personal history of COVID-19; Z86.718 Personal history of other venous thrombosis and embolism; Z86.711 Personal history of pulmonary embolism; Z85.3 Personal history of malignant neoplasm of breast; Z90.13 Acquired absence of bilateral breasts and nipples; Z96.651 Presence of right artificial knee joint; Z79.01 Long term (current) use of anticoagulants
CPT/HCPCS: 73660; 99213; G0463

== ENCOUNTER 2024-07-11 00:48 | Emergency (ER) | payer MEDICARE, SELFPAY ==
--- OUTSIDE RECORDS SUMMARY | 2024-07-11 00:51 | XMS_ITS ---
Author Organization [facility] Address [address] [place] [id number] Care Team Providers Care Wool Hat Sanding Machine Operator Name Role Phone Liu Jerez MD Unavailable Albert Corbin MD Unavailable Justen Gale MD Primary Care Provider Khris Arthur MD Unavailable [phone] Ko Melendez MD Unavailable John Paul Moyer MD Unavailable Annel Rod MD Unavailable Anali MARSHALL MD, Carlos M. Unavailable Active Problems Problem Noted Date Diagnosed Date Urinary tract infection 05/22/2024 Assessment & Plan (05/26/2024 10:08 AM ADVANCED MANUFACTURING TECHNICIAN): Presenting with urinary symptoms of right flank pain, frequency, urgency and nausea. At least 5 UTIs since 2021 despite methenamine suppression, each culture has grown E. Coli. Urine cultures with e.coli,pending susceptibilities. CT with no nidus of infection, hydronephrosis or cystitis. - ID following, recommend transitioning meropenem to ertapenem for 1 dose and then switching to fosfomycin for 3 doses q48 hours -Previously followed with [facility], but lost to follow up when her Urologist left the practice, outpatient urology follow up placed - good pain control w/Dilaudid, continue prn Venous thromboembolism (VTE) 05/22/2024 Assessment & Plan (05/25/2024 7:52 AM ADVANCED MANUFACTURING TECHNICIAN): Hx of breast cancer c/b DVT/bilateral Pes in 2017, On Xarelto therapy since. Has not taken her Xarelto for approx 1 week due to pharmacy out of stock. CTA chest with no pulmonary embolism - Pt does endorse some LLE calf pain on arrival, tho no pain or edema on exam, LED negative - Continue home Xarelto 20mg daily Chronic back pain 05/22/2024 Assessment & Plan (05/22/2024 1:14 PM ADVANCED MANUFACTURING TECHNICIAN): -long-standing chronic back pain -CT L spine 05/2023 with Lumbar degenerative changes & neural foraminal stenosis on the right at L4-L5. Chronic sacroiliitis. -PT/OT as able once inpatient -holding home Hydrocodone while getting IV Dilaudid inpatient -continue home gabapentin Breast cancer 08/17/2023 Abdominal pain 08/14/2023 Bone disorder 08/02/2022 Cystitis 02/09/2022 Lab test positive for detection of COVID-19 viru s 02/09/2022 Chest pain 09/12/2021 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) 2021 roasterman (current) use 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 inhibitors 10/17/2019 Thyroid [...] complication, without long-term current use of insulin ([facility]) 10/23/2017 Assessment & Plan (10/23/2017 2:06 AM [...] sites of left female breas t 10/13/2017 Assessment & Plan (05/22/2024 12:29 PM ADVANCED MANUFACTURING TECHNICIAN): -Hx stage II, ER positive, HER2 negative breast cancer, on adjuvant exemestane -s/p bilateral mastectomies, left axillary LN dissection, with negative margins -Follows with Khris Somers -Outpatient Medical Oncology Note review indicates plan to continue on exemestane, will complete 10 years of therapy in 12/2024 -Yearly Reclast, next dose 11/2024 Chest pressure 08/01/2017 Positive blood culture 08/01/2017 Hyponatremia 08/01/2017 Diet-controlled diabetes mellitus (CMS/HCC) 07/23 LUL (obstructive sleep apnea) 08/01/2017 Assessment & Plan (05/22/2024 12:33 PM ADVANCED MANUFACTURING TECHNICIAN): -Hx LUL -Hospital provided CPAP ordered History of DVT (deep vein thrombosis) 08/01/2017 History of pulmonary embolism 08/01/2017 Generalized weakness 07/27/2017 Dyspnea 07/27/2017 Unintentional weight loss 07/27/2017 Acute cystitis without hematuria 07/27/2017 Nausea and vomiting 07/26/2017 Overview (07/28/2017): Added automatically from request for surgery [id number] Pulmonary embolism 08/09/2016 Assessment & Plan (10/23/2017 2:05 AM CDT): On Rivaroxaban Lymphedema of left upper extremity 08/09/2016 Assessment & Plan (05/25/2024 7:53 AM ADVANCED MANUFACTURING TECHNICIAN): S/p L axillary lymph node dissection 2014, now with acute on chronic LUE swelling. No e/o cellulitis on exam. Suspect ongoing lymphedema contributing to symptoms. US doppler of Axilla limited due to extensive edema in the left axilla. Given this limitation, no suspicious cystic or solid lesion was identified. CT chest with No axillary,supraclavicular, mediastinal, or hilar lymphadenopathy. - Lymphedema c/s, improving now Pain of foot 01/26/2015 Arthralgia of ankle 01/26/2015 Rash 11/11/2014 Cellulitis of breast 11/11/2014 Restless legs syndrome 03/12/2013 Overview (07/28/2016): Restless leg syndrome Assessment & Plan (05/22/2024 11:18 AM ADVANCED MANUFACTURING TECHNICIAN): -continue home Requip 5mg nightly Pain of lower extremity 03/12/2013 Overview (07/29/2016): Leg pain Essential hypertension Assessment & Plan (05/23/2024 10:42 AM ADVANCED MANUFACTURING TECHNICIAN): -Chart history of HTN but not on meds -BP elevated on admission, likely some pain contributing -Monitor closely once pain under adequate control, discussed following up with PCP for this Chronic anticoagulation Restless leg syndrome 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 Type 2 diabetes mellitus without complication Assessment & Plan (05/24/2024 1:39 PM ADVANCED MANUFACTURING TECHNICIAN): -Last Ha1c 8.4 in 2023, repeat 8.7 -Home meds: Lantus 40 units daily, lispro 28units 3x daily w/meals -Uncontrolled DM may be contributing to recurrent UTIs -Inpatient Rx dose reduced to 30 units Lantus daily (first dose now) and 10 units TID w/meals, SSI prn -continue home gabapentin 300mg TID for Neuropathy Constipation Dyslipidemia History of breast cancer Intractable pain Current Treatment and Therapy Plans Zoledronic Acid (Reclast) Infusion* Plan Start Date:08/16/2022 Plan Provider:Khris Arthur MD Linked Problems Malignant neoplasm of upper- 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, unspecified estrogen receptor status (HCC)halfway (current) use 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 inhibitorsBone disorder Treatment Medications No medications scheduled. Past Treatment and Therapy Plans Oncology Supportive Care Plan Name Start Date Discontinue Date Treatment Medications Discontinue Reason Plan Provider Zoledronic Acid (ZOMETA) Infusion 01/05/2021 09/07/2021 No medications scheduled. Toxicity/Complic ation Khris Arthur MD Lifetime Dose Tracking * Chemical Lifetime Dose Automatic Entry Manual Entr y DLP 4,741 mGycm 4,741 mGycm 0 mGycm
--- OUTSIDE RECORDS SUMMARY | 2024-07-11 00:51 | XMS_ITS | Encounter Summary ---
Author Organization [facility] Address [address] [place] [address] Phone Care Team Providers Care Sheet Metal Duct Worker Supervisor Name Role Phone Justen Gale MD Primary Care Provider [phone] David Roberts APRN, PRECISION GRINDER Unavailable [phone] Annel Rod MD Unavailable Reason for Visit * Reason Onset Date Comments Sore Throat 06/29/2020 Encounter Details Date Type Department Care Team (Late st Contact Info) Description 06/29/2020 Telephone [facility] [address] [place] [address] Justen Gale MD [address] [address] Sore Throat Social History Tobacco Use Types [...] COVID-19? No / Unsure 06/29/2020 8:43 AM MATERIALS HANDLER documented as of this encounter Miscellaneous Notes * Telephone Encounter - Gail Lucero RN - 06/29/2020 3:53 PM CST Attempted to call mailbox is full. Pt does not need testing RIALS HANDLER * Telephone Encounter - Vince Hermosillo MD - 06/29/2020 3:13 PM CST No covid testing needed. If the er thought that it was warranted then they would have done this. RIALS HANDLER * Telephone Encounter - Marlys Sorensen RN - 06/29/2020 8:36 AM CST Patient calling. Patient is calling to schedule Hospital/ED/Prompt-Care follow up appointment. Hospital/ED/Prompt-Care Site: [facility] ED Records Requested: Yes Reason for Hospitalization/ED/Prompt-Care [...] f/up and yearly PAP appointments? Please advise. RIALS HANDLER documented in this encounter Plan of Treatment Not on file documented as of this encounter Visit Diagnoses Not on filedocumented in this encounter Additional Health Concerns Assessment Noted Time PHQ-9 Depression Total Score: 0 09/08/19 19 1:00 PM CDT documented as of this encounter Care Teams Sheet Metal Duct Worker Supervisor Relationship Specialty Start Date End Date Justen Gale MD [address] [address] PCP - General Family Medicine 10/17/17 David Roberts APRN, PRECISION GRINDER [address] [place] [address] Nurse Practitioner Advanced Practice Nurse 01/31/22 Annel Rod MD [address] [address] Consulting Physician Endocrinology 07/01/22 documented as of this encounter
--- OUTSIDE RECORDS SUMMARY | 2024-07-11 00:52 | XMS_ITS | Encounter Summary ---
Author Organization [facility] Address [address] [place] [address] Phone Care Team Providers Care School Psychology Professor Name Role Phone Justen Gale MD Primary Care Provider [phone] David Roberts APRN, RESISTOR TESTER Unavailable [phone] Annel Rod MD Unavailable Encounter Details Date Type Department Care Team (Late st Contact Info) Description 06/05/2020 [facility] [address] [place] [address] Pili Elkins APRN, RESISTOR TESTER [address] [address] Frequency of micturition Social History [...] COVID-19? No / Unsure 2020 11:37 AM MACHINE STEMMER documented as of this encounter Plan of Treatment Not on file documented as of this encounter Procedures Procedure Name Priority Date/Time Associated Diagnosis Comments URINALYSIS REFLEX IF INDICATED BY ABNORMAL RESULTS Routine 06/05/2020 4:45 PM MACHINE STEMMER Frequency of micturition documented in this encounter Results * (ABNORMAL) URINALYSIS REFLEX IF INDICATED BY ABNORMAL RESULTS (06/05/2020 4:45 PM MACHINE STEMMER) SPECIFIC GRAVITY 1.020 1.003 - 1.030 06/05/2020 5:19 PM MACHINE STEMMER [facility] URINE PH 5.0 5.0 - 9.0 06/05/2020 5:19 PM MACHINE STEMMER [facility] WBC ESTERASE Negative Negative 06/05/2020 5:19 PM MACHINE STEMMER [facility] NITRITE Negative Negative 06/05/2020 5:19 PM [facility] PROTEIN, RANDOM URINE Negative Negative 06/05/2020 5:19 PM [facility] URINE GLUCOSE, QUAL Negative Negative 06/05/2020 5:19 PM [facility] URINE KETONES Negative Negative 06/05/2020 5:19 PM MACHINE STEMMER [facility] UROBILINOGEN Normal Normal mg/dL 06/05/2020 5:19 PM [facility] URINE BILIRUBIN Negative Negative 5:19 PM [facility] URINE BLOOD 25 /uL(A) Negative leandro/ul 06/05/2020 5:19 PM [facility] URINALYSIS COLOR Yellow 06/05/19 5:19 PM [facility] URINALYSIS CLARITY Clear 06/05/2020 5:19 PM [facility] WBC (Urine) 0-5 Negative, 0-5 /hpf 06/05/2020 5:19 PM [facility] URINE RBC'S 3-5(A) Negative, 0-2 /hpf 06/05/2020 5:19 PM MACHINE STEMMER [facility] EPITHELIAL CELLS Small amount /lpf 2020 5:19 [address] [facility] BACTERIA, URINE Few(A) Negative /hpf 06/05/2020 5:19 PM MACHINE [address]MER [facility] Urine URINE SPECIMEN / Unknown Non-Phlebotomy Collection / Unknown 06/05/2020 4:45 PM MACHINE STEMMER 06/05/2020 5:00 PM MACHINE STEMMER us Pili Elkins APRN, CNP URINE ORDERABLES Fin al Result [facility] [address] [place] [address] documented in this encounter Visit Diagnoses Diagnosis Frequency of micturition Urinary frequency documented in this encounter Additional Health Concerns Assessment Noted Time PHQ-9 Depression Total Score: 0 09/08/19 19 1:00 PM CDT documented as of this encounter Care Teams School Psychology Professor Relationship Specialty Start Date End Date Justen Gale MD #[address] [address] PCP - General Family Medicine 10/17/17 David Roberts APRN, RESISTOR TESTER [address] [place] [address] Nurse Practitioner Advanced Practice Nurse 01/31/22 Annel Rod MD #[address] [phone] Consulting Physician Endocrinology 07/01/22 documented as of this encounter
--- OUTSIDE RECORDS SUMMARY | 2024-07-11 00:52 | XMS_ITS | Clinical Summary ---
Author Organization [facility] Address [address] [place] [id number] Care Team Providers Care Shade Cutter Name Role Phone Liu Jerez MD Unavailable [phone] Albert Corbin MD Unavailable [phone] Justen Gale MD Primary Care Provider Khris Arthur MD Unavailable [phone] Ko Melendez MD Unavailable John Paul Moyer MD Unavailable Annel Rod MD Unavailable Anali MARSHALL MD, Carlos M. Unavailable [phone] Allergies Active Allergy Reactions Criticality Noted Date Comments Adhesive Rash Medium 09/16/2021 Amlodipine Besylate Swelling Medium 07/05/2022 Leg swelling Sulfamethoxazole-Trimeth oprim Itching Low 02/27/2022 Calgon Danish Chg Itching Low 05/24/2024 Ceftriaxone Anaphylaxis High R Ceftriaxone Sodium Shortness [...] Test) strip 4 (four) times a day Active albuterol HFA (PROVENTIL HFA,VENTOLIN HFA,PROAIR HFA) 90 mcg/actuation inhaler Inhale 2 puffs every 6 (six) hours as needed for wheezing or shortness of breath Active naloxone (NARCAN) 4 mg/actuation spray,non-aerosol 022 Active BD Ultra-Fine Short Pen Needle 31 gauge x 5/16 needle USE 6 TIMES DAILY DIRECTED 022 Active oxyBUTYnin XL (DITROPAN XL) 15 mg 24 hr tablet Take 1 tablet (15 mg total) by mouth daily Active insulin glargine 100 unit/mL vial for injection Inject 32 Units under the skin daily Takes in the morning 024 Active Additional Information Patient taking differently: 40 Unitssubcutaneous Daily, Takes in the morning, Reported on 05/22/2024 gabapentin (NEURONTIN) 300 mg capsule Take 1 capsule (300 mg total) by mouth 3 (three) times a day 024 Active ondansetron ODT (ZOFRAN-ODT) 4 mg disintegrating tablet Take 1 tablet (4 mg total) by mouth every 4 (four) hours as needed for nausea or vomiting 20 tablet 024 Active methenamine (HIPREX) 1 gram tablet Take 1 tablet (1,000 mg total) by mouth 2 (two) times a day 024 Active ondansetron (ZOFRAN) 4 mg tablet Take 1 tablet (4 mg total) by mouth every 8 (eight) hours as needed for nausea or vomiting 024 Active rivaroxaban (Xarelto) 20 mg tabletIndications :Chronic anticoagulation,H [...] total) by mouth daily 30 tablet 11 024 Active HYDROcodone-aceta minophen (NORCO) 10-325 mg per tablet Take 1 tablet by mouth every 6 (six) hours as needed for pain 024 Active insulin lispro (HumaLOG, ADMELOG) 100 unit/mL vial for injection Inject 28 Units under the skin 3 (three) times a day before meals 28 units plus sliding scale before meals Active exemestane (AROMASIN) 25 mg tabletIndications :Malignant neoplasm of upper-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, unspecified estrogen receptor status (HCC),Malignant neoplasm of overlapping sites of left female breast, unspecified estrogen receptor status (HCC),Malignant neoplasm of female breast, unspecified estrogen receptor status, unspecified laterality, unspecified site of breast (HCC) Take 1 tablet (25 mg total) by mouth nightly 90 tablet 3 025 Active Active Problems Problem Noted Date Diagnosed Date Urinary tract infection 05/22/2024 Assessment & Plan (05/26/2024 10:08 AM SOUND INSTALLATION WORKER): Presenting with urinary symptoms of right flank [...] 05/22/2024 Assessment & Plan (05/25/2024 7:52 AM SOUND INSTALLATION WORKER): Hx of breast cancer c/b DVT/bilateral Pes in 2016, On Xarelto therapy since. Has not taken her Xarelto for approx 1 week due to pharmacy out of stock. 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) 10/23/2017 Assessment & Plan (10/23/2017 2:06 [...] 10/13/2017 Assessment & Plan (05/22/2024 12:29 PM SOUND INSTALLATION WORKER): -Hx stage II, ER positive, HER2 negative [...] 08/01/2017 Assessment & Plan (05/22/2024 12:33 PM SOUND INSTALLATION WORKER): -Hx LUL -Hospital provided CPAP ordered History of DVT (deep vein thrombosis) 08/01/2017 History of pulmonary embolism 08/01/2017 Generalized weakness 07/27/2017 Dyspnea 07/27/2017 Unintentional weight loss 07/27/2017 Acute cystitis without hematuria 07/27/2017 Nausea and vomiting 07/26/2017 Overview (07/28/2017): Added automatically from request for surgery [id number] Pulmonary embolism 08/09/2016 Assessment & Plan (10/23/2017 2:05 AM CDT): On Rivaroxaban Lymphedema of left upper extremity 08/09/2016 Assessment & Plan (05/25/2024 7:53 AM SOUND INSTALLATION WORKER): S/p L axillary lymph node dissection 2014, [...] syndrome Assessment & Plan (05/22/2024 11:18 AM SOUND INSTALLATION WORKER): -continue home Requip 5mg nightly Pain of lower extremity 03/12/2013 Overview (07/29/2016): Leg pain Essential hypertension Assessment & Plan (05/23/2024 10:42 AM SOUND INSTALLATION WORKER): -Chart history of HTN but not on meds -BP elevated on admission, likely some pain contributing -Monitor closely once pain under adequate control, discussed following up with PCP for this Chronic anticoagulation Restless leg syndrome 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 Type 2 diabetes mellitus without complication Assessment & Plan (05/24/2024 1:39 PM SOUND INSTALLATION WORKER): -Last Ha1c 8.4 in 2023, repeat 8.7 [...] Encounters Date Type Department Care Team Description 07/01/2024 8:52 PM CDT - 07/01/2024 10:18 PM CDT Emergency [facility] Emergency Department [facility] [place], [place] [address] Myalgia (Primary Dx); Viral syndrome Discharge Disposition: Discharge to home or self care 05/30/2024 Orders Only [facility] Oncology [address] [place] [address] Radha Mcgrath RN Lymphedema of left arm (Primary Dx); Malignant neoplasm of upper-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, unspecified estrogen receptor status (HCC); Malignant neoplasm of overlapping sites of left female breast, unspecified estrogen receptor status (HCC); Malignant neoplasm of female breast, unspecified estrogen receptor status, unspecified laterality, unspecified site of breast (HCC) 05/24/2024 Telephone [facility] [address] [place] [address] Radha aWrner RN 05/23/2024 8:10 AM SOUND INSTALLATION WORKER Ancillary Procedure [facility] Vascular Lab IP [address] [facility] [address] [place] [address] 05/21/2024 9:12 PM SOUND INSTALLATION WORKER - 05/26/2024 6:45 PM SOUND INSTALLATION WORKER Hospital Encounter [facility] [address] [place] [address] Jimmie Zavala MD Liss, MD Ra Parnell, MD Sebastian Claros Rehan, MD Left arm pain (Primary Dx); Left leg pain; Shortness of breath; Urinary tract infection without hematuria, site unspecified; Allergy to drug Discharge Disposition: Discharge to home or self care 05/21/2024 12:58 PM SOUND INSTALLATION WORKER - 05/21/2024 11:59 PM SOUND INSTALLATION WORKER Hospital Encounter [facility] [address] [place] [address] Discharge Disposition: Discharge to home or self care 05/21/2024 11:00 AM SOUND INSTALLATION WORKER - 05/21/2024 11:59 PM SOUND INSTALLATION WORKER Hospital Encounter [facility] - Breast Imaging [facility] Floor [address] [place] [address] History of breast cancer; Axillary pain, left Discharge Disposition: Discharge to home or self care 05/16/2024 Telephone [facility] Oncology [address] [place] [address] [address] [place] [phone] Jeanine Ba, Cordelia 05/16/2024 Orders Only [facility] Oncology [address] [place] [address] 8 [place] [id number] Radha Mcgrath RN History of breast cancer (Primary Dx); Axillary pain, left 05/16/2024 Orders Only [facility] Oncology [address] [place] [address] 8 [place] [id number] Khris Arthur MD Swelling of left upper extremity (Primary Dx); Swelling of left lower extremity 05/14/2024 4:45 PM SOUND INSTALLATION WORKER Lab [facility] - Lab Collection [facility] Floor [address] [place] [address] Malignant neoplasm of upper-inner quadrant of left breast in female, estrogen receptor positive (HCC) 05/14/2024 4:36 PM SOUND INSTALLATION WORKER - 05/14/2024 11:59 PM SOUND INSTALLATION WORKER Hospital Encounter [facility] - Diagnostic Imaging [address] [facility] [address] [place] [address] Malignant neoplasm of upper-inner quadrant of left breast in female, estrogen receptor positive (HCC) Discharge Disposition: Discharge to home or self care 05/14/2024 4:00 PM SOUND INSTALLATION WORKER Lab [facility] Oncology Lab [address] [place] [address] Malignant neoplasm of upper-inner quadrant of left breast in female, estrogen receptor positive (HCC) 05/14/2024 3:30 PM SOUND INSTALLATION WORKER Office Visit [facility] Oncology [address] [place] [address] Khris Arthur MD Swelling of right lower extremity (Primary Dx); Malignant neoplasm of upper-inner quadrant of left breast in female, estrogen receptor positive (HCC); Swelling of right upper extremity; Swelling of left upper extremity; Swelling of left lower extremity 04/22/2024 Telephone [facility] Oncology [address] [place] [address] 8 [place] [address] Radha Mcgrath RN 04/19/2024 Telephone [facility] [address] [place] [address] Lalita Braun, NURIS Scheduling Appointments from Last 3 Months Immunizations Immunization Administration Dates Next Due Influenza, Quadrivalent, Spl [...] osteoarthritis Depression Depression DVT (deep venous thrombosis) (HCC) PE (pulmonary thromboembolism) (HCC) CHF (congestive heart failure) (HCC) Breast CA (HCC) RLS (restless legs [...] : Cancer, prostate Diabetes Mother Diabetes mellit ; Heart disease Mother Heart disease; Heart failure [...] = 0.6 oz pur e alcohol) [facility] Utilities Answer Date Recorded In the past 12 months has trinket, [employer], oil, or water [employer] threatened to shut off services in your home? No 05/24/2024 Social Connection and Isolat ion Panel [NHANES] Answer Date Recorded In a typical week, how many times do you talk on the phone with family, friends, or neighbors? More than three times a week 05/24/2024 How often do you get togethe r with friends or relatives? More than three times a week 05/24/2024 How often do you attend [facility] or episcopal services? More than 4 times per year 05/24/2024 Do you belong to any clubs o r organizations such as anabaptist groups, unions, fraternal or athletic groups, or school groups? No 05/24/2024 How often do you attend meet ings of the clubs or organizations you belong to? Patient unable to answer 05/24/2024 Are you , , di vorced, , never , or living with a partner? 05/24/2024 AUDIT-C Answer Date Recorded Q1: How often [...] housing, medical care, and heating? Somewhat hard 05/24/2024 PHQ-2 Answer Date Recorded PHQ-2 Score 1 12/15/2018 Hunger Vital Sign Answer Date Recorded Within the past 12 months, y ou worried that your food would run out before you got the money to buy more. Never true 05/24/19 25 Within the past 12 months, t he food you bought just didn't last and you didn't have money to get more. Never true 05/24/2024 PRAPARE - Transportation Answer Date Re corded In the past 12 months, has l ack of transportation kept you from medical appointments or from getting medications? No 04/26 In the past 12 months, has l ack of transportation kept you from meetings, work, or from getting things needed for daily living? No 05/24/2024 Housing Stability Vital Sign Answer [place] [...] in a alf (including now)? No 08/15/2023 Housing Stability Vital Sign Answer [place] Recorded In the last 12 months, was t here a time when you were not able to pay the mortgage or rent on time? No 05/24/2024 In the past 12 months, how m any times have you moved where you were living? 0 05/24/2024 At any time in the past 12 m [facility], were you homeless or living in a alf (including now)? No 05/24/2024 Personal Safety Answer Date Recorded Have you ever been in or are you currently in a harmful physical or emotional relationship or is someone making you feel afraid or unsafe? Denies 07/01/2024 Comments No Sex and Gender Information Value Date Recorded Sex Assigned at Not on file Legal Sex Female 12:24 AM SOUND INSTALLATION WORKER Gender Identity Not on file Sexual Orientation Not on file Obstetrics History Last Filed Vital Signs Vital Sign Reading Time Taken Comments Blood Pressure 153/93 07/01/2024 9:58 PM CDT Pulse 78 07/01/2024 9:58 PM CDT Temperature 36.3 C (97.3 F) 07/01/2024 1:49 PM CDT Respiratory Rate 18 07/01/2024 8:50 PM CDT Oxygen Saturation 98% 07/01/2024 9:58 PM CDT Inhaled Oxygen Concentration - - Weight 122.9 kg (270 lb 15.1 oz) 07/01/2024 1:49 PM CDT Height 154.9 cm (5' 1 ) 07/01/2024 1:49 PM CDT Body Mass Index 51.19 07/01/2024 1:49 PM CDT Plan of Treatment Health Maintenance Due Date Last Done Comments Albumin Creatinine Ratio, Urine 1955 Hepatitis C Screening 1955 Dilated Eye Exam 1956 Foot Exam 1956 Hepatitis B Screening 1974 Pneumococcal vaccine 65+ (1 of 2 - PCV) 1975 Zoster Vaccine (1 of 2) 1975 Breast Cancer Screening-Mammogram 08/19/2017 017 Depression Screening 01/23/2019 01/23/2018, 01/24/20 18 Covid-19 Vaccine (2 - Jansse n risk series) 07/27/2020 06/29/2020 Well Visit 65+ 2021 Influenza Vaccine (#1) 2023 3, 01/03/2022, 05/04/2021, Additional history exists Osteoporosis Screening-Bone Density Scan 08/02/2024 08/02/2022, 08/02/2022, 11/10/2020, Additional history exists Hemoglobin A1C 11/19/2024 05/22/2024, 04/25, 08/14/2023, Additional history exists Lipid Panel 05/21/2025 05/21/2024, 09/23, 08/14/2023, Additional history exists Fall Risk Assessment 05/26/2025 05/26/2024 eGFR 07/01/2025 07/01/2024, 05/2024, 05/25/2024, Additional history exists DTaP/Tdap/Td Vaccine (2 - Td or Tdap) 02/22/2026 02/23/2016 Colon Cancer Screening-Colonoscopy 07/04/2027 07/03/2017 Colon Cancer Screening-CT Colonography Discontinued 07/03/2017 Colon Cancer Screening-DNA Stool Discontinued 07/04/19 Colon Cancer Screening-FIT Discontinued 07/03/2017 Colon Cancer Screening-Sigmoidoscopy Discontinued 07/03/2017 Procedures Procedure Name Priority Date/Time Associated Diagnosis Comments CT CHEST W CONTRAST ED 07/01/2024 7 :08 PM CDT URINALYSIS, MICROSCOPIC ONLY STAT 07/01/2024 3:43 PM CDT TROPONIN T HIGH-SENSITIVITY 2-HOUR Timed 07/01/2024 3:43 PM CDT URINALYSIS AND REFLEX TO MICROSCOPIC AND CULTURE STAT 07/01/2024 3:43 PM CDT XR CHEST 1 VIEW ED 07/01/2024 2:22 PM CDT ECG 12-LEAD STAT 07/01/2024 2:05 PM CDT EGFR STAT 07/01/2024 2:02 PM CDT DIFFERENTIAL AUTO STAT 07/01/2024 2:0 2 PM CDT PRO B-TYPE NATRIURETIC PEPTIDE STAT 07/01/2024 2:02 PM CDT TROPONIN T HIGH-SENSITIVITY SERIES (BASELINE, 2HR, 4HR, 6HR) STAT 07/01/2024 2:02 PM CDT CBC WITH AUTO DIFFERENTIAL STAT 07/01/2024 2:02 PM CDT COMPREHENSIVE METABOLIC PANEL STAT 07/01/2024 2:02 PM CDT INFLUENZA A/B, RSV, AND COVID-19 PCR STAT 07/01/2024 2:02 PM CDT POCT GLUCOSE DEVICE Routine 05/26/2024 4 :27 PM SOUND INSTALLATION WORKER POCT GLUCOSE DEVICE Routine 05/26/2024 1 1:38 AM SOUND INSTALLATION WORKER POCT GLUCOSE DEVICE Routine 05/26/2024 8 :12 AM SOUND INSTALLATION WORKER EGFR Routine 05/26/2024 12:05 AM SOUND INSTALLATION WORKER DIFFERENTIAL AUTO Routine 05/26/2024 12: 05 AM SOUND INSTALLATION WORKER PHOSPHORUS Routine 05/26/2024 12:05 AM SOUND INSTALLATION WORKER COMPREHENSIVE METABOLIC PANEL Routine 05/26/2024 12:05 AM SOUND INSTALLATION WORKER MAGNESIUM Routine 05/26/2024 12:05 AM SOUND INSTALLATION WORKER CBC WITH AUTO DIFFERENTIAL Routine 05/26/2024 12:05 AM SOUND INSTALLATION WORKER POCT GLUCOSE DEVICE Routine 05/25/2024 7 :44 PM SOUND INSTALLATION WORKER POCT GLUCOSE DEVICE Routine 05/25/2024 5 :24 PM SOUND INSTALLATION WORKER POCT GLUCOSE DEVICE Routine 05/25/2024 1 1:37 AM SOUND INSTALLATION WORKER POCT GLUCOSE DEVICE Routine 05/25/2024 7 :27 AM SOUND INSTALLATION WORKER EGFR Routine 05/25/2024 12:20 AM SOUND INSTALLATION WORKER DIFFERENTIAL AUTO Routine 05/25/2024 12: 20 AM SOUND INSTALLATION WORKER PHOSPHORUS Routine 05/25/2024 12:20 AM SOUND INSTALLATION WORKER COMPREHENSIVE METABOLIC PANEL Routine 05/25/2024 12:20 AM SOUND INSTALLATION WORKER MAGNESIUM Routine 05/25/2024 12:20 AM SOUND INSTALLATION WORKER CBC WITH AUTO DIFFERENTIAL Routine 05/25/2024 12:20 AM SOUND INSTALLATION WORKER POCT GLUCOSE DEVICE Routine 05/24/2024 8 :13 PM SOUND INSTALLATION WORKER POCT GLUCOSE DEVICE Routine 05/24/2024 5 :17 PM SOUND INSTALLATION WORKER POCT GLUCOSE DEVICE Routine 05/24/2024 1 2:49 PM SOUND INSTALLATION WORKER POCT GLUCOSE DEVICE Routine 05/24/2024 9 :22 AM SOUND INSTALLATION WORKER HERPES SIMPLEX VIRUS (HSV) PCR Routine 05/24/2024 8:47 AM SOUND INSTALLATION WORKER POCT GLUCOSE DEVICE Routine 05/24/2024 8 :22 AM SOUND INSTALLATION WORKER EGFR Routine 05/24/2024 12:29 AM SOUND INSTALLATION WORKER DIFFERENTIAL AUTO Routine 05/24/2024 12: 29 AM SOUND INSTALLATION WORKER PHOSPHORUS Routine 05/24/2024 12:29 AM SOUND INSTALLATION WORKER COMPREHENSIVE METABOLIC PANEL Routine 05/24/2024 12:29 AM SOUND INSTALLATION WORKER MAGNESIUM Routine 05/24/2024 12:29 AM SOUND INSTALLATION WORKER CBC WITH AUTO DIFFERENTIAL Routine 05/24/2024 12:29 AM SOUND INSTALLATION WORKER POCT GLUCOSE DEVICE Routine 05/23/2024 8 :16 PM SOUND INSTALLATION WORKER POCT GLUCOSE DEVICE Routine 05/23/2024 6 :14 PM SOUND INSTALLATION WORKER POCT GLUCOSE DEVICE Routine 05/23/2024 1 2:17 PM SOUND INSTALLATION WORKER US VEIN DUPLEX LOWER EXTREMITY BILATERAL COMPLETE IP Routine 05/23/2024 11:45 AM SOUND INSTALLATION WORKER POCT GLUCOSE DEVICE Routine 05/23/2024 8 :16 AM SOUND INSTALLATION WORKER DIFFERENTIAL AUTO Routine 05/23/2024 2:3 0 AM SOUND INSTALLATION WORKER CBC WITH AUTO DIFFERENTIAL Routine 05/23/2024 2:30 AM SOUND INSTALLATION WORKER EGFR Routine 05/23/2024 12:42 AM SOUND INSTALLATION WORKER LACTATE DEHYDROGENASE Routine 05/23/2024 12:42 AM SOUND INSTALLATION WORKER URIC ACID Routine 05/23/2024 12:42 AM SOUND INSTALLATION WORKER TYPE AND SCREEN Timed 05/23/2024 12:42 AM SOUND INSTALLATION WORKER PHOSPHORUS Routine 05/23/2024 12:42 AM SOUND INSTALLATION WORKER COMPREHENSIVE METABOLIC PANEL Routine 05/23/2024 12:42 AM SOUND INSTALLATION WORKER MAGNESIUM Routine 05/23/2024 12:42 AM SOUND INSTALLATION WORKER POCT GLUCOSE DEVICE Routine 05/22/2024 8 :56 PM SOUND INSTALLATION WORKER POCT GLUCOSE DEVICE Routine 05/22/2024 6 :09 PM SOUND INSTALLATION WORKER POCT GLUCOSE DEVICE Routine 05/22/2024 4 :26 PM SOUND INSTALLATION WORKER CT ABDOMEN PELVIS W CONTRAST ED 05/22/2024 2:32 PM SOUND INSTALLATION WORKER POCT GLUCOSE DEVICE Routine 05/22/2024 1 2:58 PM SOUND INSTALLATION WORKER POCT GLUCOSE DEVICE Routine 05/22/2024 9 :29 AM SOUND INSTALLATION WORKER POCT GLUCOSE DEVICE Routine 05/22/2024 6 :54 AM SOUND INSTALLATION WORKER CT CHEST PE W CONTRAST ED 05/22/2024 1:31 AM SOUND INSTALLATION WORKER D-DIMER, QUANTITATIVE Routine 05/22/2024 12:24 AM SOUND INSTALLATION WORKER URINALYSIS, MICROSCOPIC ONLY Routine 05/21/2024 11:09 PM SOUND INSTALLATION WORKER TROPONIN I HIGH-SENSITIVITY 2-HOUR Timed 05/21/2024 11:09 PM SOUND INSTALLATION WORKER URINE CULTURE Routine 05/21/2024 11:09 PM SOUND INSTALLATION WORKER RESPIRATORY PATHOGEN PANEL Routine 05/21/2024 11:09 PM SOUND INSTALLATION WORKER URINALYSIS AND REFLEX TO MICROSCOPIC AND CULTURE Routine 05/21/2024 11:09 PM SOUND INSTALLATION WORKER POCT GLUCOSE DEVICE Routine 05/21/2024 8 :55 PM SOUND INSTALLATION WORKER TROPONIN I HIGH-SENSITIVITY 4-HOUR Timed 05/21/2024 7:26 PM SOUND INSTALLATION WORKER LIPID PANEL STAT 05/21/2024 4:20 PM SOUND INSTALLATION WORKER HEMOGLOBIN A1C STAT 05/21/2024 4:20 PM SOUND INSTALLATION WORKER EGFR STAT 05/21/2024 4:20 PM SOUND INSTALLATION WORKER DIFFERENTIAL AUTO STAT 05/21/2024 4:2 0 PM SOUND INSTALLATION WORKER TROPONIN I HIGH-SENSITIVITY SERIES (BASELINE, 2HR, 4HR, 6HR) STAT 05/21/2024 4:20 PM SOUND INSTALLATION WORKER COMPREHENSIVE METABOLIC PANEL STAT 05/21/2024 4:20 PM SOUND INSTALLATION WORKER CBC WITH AUTO DIFFERENTIAL STAT 05/21/2024 4:20 PM SOUND INSTALLATION WORKER XR CHEST PA LATERAL 2 VIEWS ED 05/21/2024 2:23 PM SOUND INSTALLATION WORKER POCT GLUCOSE DEVICE Routine 05/21/2024 1 :39 PM SOUND INSTALLATION WORKER ECG 12-LEAD STAT 05/21/2024 1:36 PM SOUND INSTALLATION WORKER US AXILLARY LEFT Schedule Routine, Read Routine (OP Routine) 05/21/2024 12:13 PM SOUND INSTALLATION WORKER History of breast cancer Axillary pain, left URINALYSIS, MICROSCOPIC ONLY Routine 05/14/2024 4:50 PM SOUND INSTALLATION WORKER Malignant neoplasm of upper-inner quadrant of left breast in female, estrogen receptor positive (HCC) URINALYSIS AND REFLEX TO MICROSCOPIC AND CULTURE Routine 05/14/2024 4:50 PM SOUND INSTALLATION WORKER Malignant neoplasm of upper-inner quadrant of left breast in female, estrogen receptor positive (HCC) XR RIBS LEFT 2 VIEWS Schedule Routine, Read Routine (OP Routine) 05/14/2024 4:44 PM SOUND INSTALLATION WORKER Malignant neoplasm of upper-inner quadrant of left breast in female, estrogen receptor positive (HCC) DEXA AXIAL SKELETON BONE DENSITY 1 OR MORE SITES Schedule Routine, Read Routine (OP Routine) 08/02/2022 10:53 AM CDT Malignant neoplasm of upper-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, unspecified estrogen receptor status (HCC) COLONOSCOPY REPORT 07/03/2017 SCREENING MAMMOGRAM Routine 08/19/2016 7 :27 PM CDT from Last 3 Months or Most Recently Relevant to Health Maintenance Results * CT Chest W Contrast (07/01/2024 7:08 PM CDT) Anatomical Region Laterality Modality Body N/A Computed Tomogra phy 07/01/2024 8:10 PM CDT Narrative 07/01/2024 8:14 PM CDT EXAM DESCRIPTION: CT CHEST W CONTRAST REASON FOR STUDY: Respiratory illness, nondiagnostic xray muscle aches and shortness of breath since last night. 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 TECHNIQUE: CT scan of the chest performed with intravenous contrast using helical scanning technique with dynamic intravenous contrast injection. Reconstructed coronal and sagittal MPR images reviewed. All images stored on PACS. Automated exposure control was used as a dose optimization technique for this examination. CONTRAST TYPE/DOSE: 100mL of IOVERSOL 350 MG IODINE/ML INTRAVENOUS SYRINGE injected via intravenous COMPARISON: 05/22/2024 FINDINGS: LUNGS: Clear. Trachea and major airways patent. HEART/MEDIASTINUM/SHALA: heart size normal. annular and coronary artery calcification. main pulmonary arteries are grossly clear filling defect. no enlarged lymph node. thoracic inlet unremarkable. UPPER ABDOMEN: Cholecystectomy. MUSCULOSKELETAL: Multilevel disc disease. Spinal stimulator. CHEST WALL: Unremarkable. IMPRESSION: No pneumonia or other acute abnormality identified. No large/central PE. THIS IS AN ELECTRONICALLY VERIFIED FINAL REPORT 07/01/2024 8:14 PM - Electronically signed by Juve Galleogs M.D. AR: VALERY Report ID: [id number] Reading Location: [place] [address] Procedure Note uJve Gallegos MD - 07/01/2024 EXAM DESCRIPTION: CT CHEST W CONTRAST REASON FOR STUDY: Respiratory illness, nondiagnostic xray muscle aches and shortness of breath since last night. Took tylenol justPTA. TECHNIQUE: CT scan of the chest performed with intravenous contrast using helical scanning technique with dynamic intravenous contrast injection. Reconstructed coronal and sagittal MPR images reviewed. All images storedon PACS. Automated exposure control was used as a dose optimizationtechnique for this examination. CONTRAST TYPE/DOSE: 100mL of IOVERSOL 350 MG IODINE/ML INTRAVENOUS SYRINGE injected via intravenous COMPARISON: 05/22/2024 FINDINGS: LUNGS: Clear. Trachea and major airways patent. HEART/MEDIASTINUM/SHALA: heart size normal. annular and coronary artery calcification. main pulmonary arteries are grossly clear filling defect.no enlarged lymph node. thoracic inlet unremarkable. UPPER ABDOMEN: Cholecystectomy. MUSCULOSKELETAL: Multilevel disc disease. Spinal stimulator. CHEST WALL: Unremarkable. IMPRESSION: No pneumonia or other acute abnormality identified. No large/central PE. THIS IS AN ELECTRONICALLY VERIFIED FINAL REPORT 07/01/2024 8:14 PM - Electronically signed by Juve Gallegos M.D. AR: VALERY Report ID: [id number] Reading Location: [place] [address] us Lila MCKEON IMG CT PROCEDURES Final Resu lt * (ABNORMAL) Troponin T high-sensitivity 2-hour (07/01/2024 3:43 PM CDT) Trop T hs 27(H) <=14 ng/L Comment: Interpretive Data For further hscTnT resources including the diagnostic algorithm and an aid in interpretation, copy and paste this link: https://nrl.testcatalog.org/show/hsTrop Current Interpretive Data last revised 2020. Testing performed by: [address] [address] Trop T hs delta 0 ng/L MARY JANE PHAM Comment:Testing performed by : [address] [address] Trop T hs interp Insignificant MARY JANE PHAM Comment:Testing performed by : [address] [address] Blood 07/01/2024 3:43 PM CDT 07/01/2024 3:52 PM CDT us Ilana Stevens MD LAB BLOOD ORDERABLES F inal Result MARY JANE PHAM [address] [facility] [place] [address] * (ABNORMAL) Urinalysis reflex to microscopic and culture Urine (07/01/2024 3:43 PM CDT) Color, ur Yellow Yellow Comment:Testing performed by : [address] [address] Clarity, ur Clear Clear MARY JANE Comment:Testing performed by : [address] [address] Specific gravity, ur 1.020 1.003 - 1.030 MARY JANE Comment:Testing performed by : [address] [address] pH, urine 6.0 MARY JANE Comment: Interpretive Data U rine pH is affected by diet, medications, systemic acid-base disturbances, and renal tubular function. pH may affect urinary stone formation. For example, urine pH below 6.0 may help reduce the tendency for calcium phosphate stones and pH greater than 6.0 may reduce the tendency for uric acid stone formation. Source: [facility] [employer] Current Interpretive Data was last revised on 2017 Testing performed by: [address] [address] Protein, ur ql Negative Negative MARY JANE Comment:Testing performed by : [address] [address] Glucose, ur ql 2+(A) Negative MARY JANE Comment:Testing performed by : [address] [address] Ketones, ur Negative Negative MARY JANE Comment:Testing performed by : [address] [address] Bilirubin, ur Negative Negative MARY JANE Comment:Testing performed by : [address] [address] Blood, ur Trace(A) Negative MARY JANE Comment:Testing performed by : [address] [address] Urobilinogen, ur <2.0 <2.0 mg/dL MARY JANE Comment:Testing performed by : [address] [address] Nitrite, ur Negative Negative MARY JANE Comment:Testing performed by : [address] [address] Leukocyte esterase, ur Negative Negative MARY JANE Comment:Testing performed by : [address] [address] UA reflex comment Reflex to microscopic UA will be performed. MARY JANE Comment:Testing performed by : [address] [address] Urine 07/01/2024 3:43 PM CDT 07/01/2024 3:52 PM CDT Ilana Stevens MD LAB MICROBIOLOGY - GEN ERAL ORDERABLES Final Result Performing Organization Address [facility]/ZIP Co de Phone Number [facility] [address] [facility] [place] [address] * (ABNORMAL) Urinalysis, microscopic only (07/01/2024 3:43 PM CDT) WBC, ur 0-5 0 - 5 /HPF Comment:Testing performed by : [address] [address] RBC, ur 3-5(A) 0 - 2 /HPF MARY JANE Comment:Testing performed by : [address] [address] Epithelial cells, squamous, ur 1-5 0 - 5 /HPF MARY JANE Comment:Testing performed by : [address] [address] Mucous, ur Present(A) MARY JANE Comment:Testing performed by : [address] [address] Culture Reflex Comment Reflex conditions for urine culture (WBC >10) not met. MARY JANE Comment:Testing performed by : [address] [address] Urine 07/01/2024 3:43 PM CDT 07/01/2024 3:52 PM CDT Ilana Stevens MD LAB URINE ORDERABLES F inal Result Performing Organization Address [facility]/ZIP Co de Phone Number [facility] [address] [facility] [place] [address] * XR Chest 1 Vw Portable (if patient condition/safety warrant portable) (07/01/2024 2:22 PM CDT) Anatomical Region Laterality Modality Body, Chest N/A Computed Radiogr aphy 07/01/2024 3:03 PM CDT Narrative 07/01/2024 3:04 PM CDT EXAM DESCRIPTION: XR CHEST 1 VIEW REASON FOR STUDY: Shortness of breath Pt c/o muscle aches and shortness of breath since last night TECHNIQUE: Single frontal radiographic view(s) of the chest. COMPARISON: 05/22/2024 FINDINGS: The heart, mediastinum, and pulmonary vasculature are grossly stable. There is no definite evidence of a pneumothorax. There is no definite evidence of pleural effusion. There are mild patchy bibasilar airspace opacities. The osseous structures are acutely grossly stable. IMPRESSION: Mild patchy bibasilar airspace opacities, which is likely related to subsegmental atelectasis/scarring and less likely developing airspace disease. THIS IS AN ELECTRONICALLY VERIFIED FINAL REPORT 07/01/2024 3:04 PM - Electronically signed by Romelia Bowen D.O. PS: PS Report ID: [id number] Reading Location: [id number] Procedure Note Romelia Bowen, DO - 07/01/2024 EXAM DESCRIPTION: XR CHEST 1 VIEW REASON FOR STUDY: Shortness of breath Pt c/o muscle aches and shortness of breath since last night TECHNIQUE: Single frontal radiographic view(s) of the chest. COMPARISON: 05/22/2024 FINDINGS: The heart, mediastinum, and pulmonary vasculature are grossly stable. There is no definite evidence of a pneumothorax. There is no definite evidence of pleural effusion. There are mild patchy bibasilar airspace opacities. The osseous structures are acutely grossly stable. IMPRESSION: Mild patchy bibasilar airspace opacities, which is likely related to subsegmental atelectasis/scarring and less likely developing airspacedisease. THIS IS AN ELECTRONICALLY VERIFIED FINAL REPORT 07/01/2024 3:04 PM - Electronically signed by Romelia Bowen D.O. PS: PS Report ID: [id number] Reading Location: [id number] Ilana Stevens MD IMG XR PROCEDURES Deann l Result * ECG 12 lead (07/01/2024 2:05 PM CDT) Ventricular Rate EKG/Min [address] [facility] Atrial Rate 76 BPM [facility] CT-Interval (MSEC) [address] [facility] QRS-Interval (MSEC) [address] [facility] QT-Interval (MSEC) [address] [facility] QTc 434 ms [facility] P [place] 26 degrees [facility] R [place] 22 degrees [facility] T [place] 46 degrees [facility] Diagnosis Normal sinus rhythm Normal ECG When compared with ECG of 28-DEC-2023 12:49, No significant change was found Confirmed by DUTCH BRUGOS M.D. ([id number]) on 07/01/2024 10:10:22 PM [facility] 07/01/2024 2:05 PM CDT 07/01/2024 10:10 PM CDT us Ilana Stevens MD ECG ORDERABLES Final Result [facility] * (ABNORMAL) Troponin T high-sensitivity series (baseline, 2hr, 4hr, 6hr) (07/01/2024 2:02 PM CDT) Pathologist [facility] Trop T hs 27(H) <=14 ng/L Comment: Interpretive Data For further hscTnT resources including the diagnostic algorithm and an aid in interpretation, copy and paste this link: https://nrl.testcatalog.org/show/hsTrop Current Interpretive Data last revised 2020. Testing performed by: [facility], [address] [place] [address]., [address] Blood 07/01/2024 2:02 PM CDT 07/01/2024 2:12 PM CDT Ilana Stevens MD LAB BLOOD ORDERABLES F inal Result Performing Organization Address City/[facility]/ZIP Co de Phone Number MARY JANE [address] [facility] [place] [address] * Influenza A/B, RSV, and COVID-19 PCR Nasopharyngeal (07/01/2024 2:02 PM CDT) COVID-19 RNA Negative Negative Comment:Testing performed by : [address] [address] Influenza A RNA Negative Negative [facility] Comment:Testing performed by : [address] [address] Influenza B RNA Negative Negative [facility] Comment:Testing performed by : [address] [address] RSV RNA Negative Negative [facility] Comment: Interpretive data: Testing performed by [facility]. This test is performed using the NPC III Xpert Xpress CoV-2/Flu/RSV plus assay. This is a multiplex, real-time reverse transcriptase PCR assay intended for the qualitative detection of nucleic acid from SARS-CoV-2, influenza A, influenza B, and respiratory syncytial virus. This assay has been cleared by the [place] Food and Drug administration. The performance characteristics have been verified by the [facility]. Results must be considered in the clinical context, and a negative result does not rule out infection. Interpretive Data last revised 2023 Testing performed by: [address] [address] Nasopharyngeal 07/01/2024 2: 02 PM CDT 07/01/2024 2:12 PM CDT Narrative MARY JANE - 07/01/2024 2:52 PM CDT Is the Patient experiencing symptoms consistent with COVID?->Yes Ilana Stevens MD LAB MICROBIOLOGY - GEN ERAL ORDERABLES Final Result Performing Organization Address City/[facility]/ZIP Co de Phone Number MARY JANE [address] [facility] [place] [address] * eGFR (07/01/2024 2:02 PM CDT) Pathologist [facility] eGFR >90 >=60 mL/min/1. 73 m2 Comment: Interpretive Data Reference Interval Normal >/= 90 mL/min/1.73m2 Mildly decreased* 60 - 89 mL/min/1.73m2 Mildly to moderately decreased 45 - 59 mL/min/1.73m2 Moderately to severely decreased 30 - 44 mL/min/1.73m2 Severely decreased 15 - 29 mL/min/1.73m2 Kidney Failure < 15 mL/min/1.73m2 *Relative to young adult level Estimated glomerular [...] last reviewed 2021. Testing performed by: [address] [address] Blood 07/01/2024 2:02 PM CDT 07/01/2024 2:12 PM CDT us Ilana Stevens MD LAB BLOOD ORDERABLES F inal Result [facility] [address] [facility] Department [place] [address] * Differential, auto (07/01/2024 2:02 PM CDT) [facility] Neutrophil abs 5.3 1.5 - 6.5 K/cumm Comment:Testing performed by : [address] [address] Imm gran abs 0.0 0.0 - 0.1 K/cumm MARY JANE PHAM Comment:Testing performed by : [address] [address] Lymphocyte abs 2.6 0.8 - 3.3 K/cumm MARY JANE Comment:Testing performed by : [address] [address] Monocyte abs 0.8 0.2 - 0.8 K/cumm MARY JANE Comment:Testing performed by : [address] [address] Eosinophil abs 0.2 0.0 - 0.5 K/cumm [facility] Comment:Testing performed by : [address] [address] Basophil abs 0.0 0.0 - 0.1 K/cumm [facility] Comment:Testing performed by : [address] [address] Neutrophil pct 59.1 % [facility] Comment: Interpretive Data Percent cell count reference ranges are not reported, since discordance with absolute values may lead to misinterpretation of CBC data. Current Interpretive Data was last revised on 2017. Testing performed by: [address] [address] Imm gran pct 0.2 % [facility] Comment: Interpretive Data Percent cell count reference ranges are not reported, since discordance with absolute values may lead to misinterpretation of CBC data. Current Interpretive Data was last revised on 2017. Testing performed by: [address] [address] Lymphocyte pct 29.0 % [facility] Comment: Interpretive Data Percent cell count reference ranges are not reported, since discordance with absolute values may lead to misinterpretation of CBC data. Current Interpretive Data was last revised on 2017. Testing performed by: [address] [address] Monocyte pct 9.3 % [facility] Comment: Interpretive Data Percent cell count reference ranges are not reported, since discordance with absolute values may lead to misinterpretation of CBC data. Current Interpretive Data was last revised on 2017. Testing performed by: [address] [address] Eosinophil pct 2.2 % [facility] Comment: Interpretive Data Percent cell count reference ranges are not reported, since discordance with absolute values may lead to misinterpretation of CBC data. Current Interpretive Data was last revised on 2017. Testing performed by: [facility], [address] [place] [address]., [address] Basophil pct 0.2 % MARY JANE PHAM Comment: Interpretive Data Percent cell count reference ranges are not reported, since discordance with absolute values may lead to misinterpretation of CBC data. Current Interpretive Data was last revised on 2017. Testing performed by: [facility], [address] [place] [address]., [address] Blood 07/01/2024 2:02 PM CDT 07/01/2024 2:12 PM CDT us Ilana Stevens MD LAB BLOOD ORDERABLES F inal Result MARY JANE PHAM [address] [facility] [place] [address] * Pro B-type natriuretic peptide (07/01/2024 2:02 PM CDT) NT-proBNP 104 <=300 pg/mL Comment: Interpretive Comments: A. Dyspnea in Acute Care Setting All Ages: < 300 pg/ml, acute heart failure unlikely. < 50 yrs: 300 - 450 pg/ml, further investigation warranted. > 450 pg/ml, acute heart failure likely. 50 - 74 yrs: 300 - 900 pg/ml, further investigation warranted. > 900 pg/ml, acute heart failure likely . > or = 75 yrs: 450 - 1800 pg/ml, further investigation warranted. > 1800 pg/ml, acute heart failure likely. B. Non-acute Setting < 75 yrs < 125 pg/ml, rules out heart failure. > or = 125 pg/ml, further investigation warranted. > or = 75 yrs < 450 pg/ml, rules out heart failure. > or = 450 pg/ml, further investigation [...] Last Revised Date: 2017. Testing performed by: [address] [address] Blood 07/01/2024 2:02 PM CDT 07/01/2024 2:12 PM CDT us Ilana Stevens MD LAB BLOOD ORDERABLES F inal Result [facility] [address] [facility] [place] [address] * (ABNORMAL) CBC with auto differential (07/01/2024 2:02 PM CDT) Pathologist [facility] WBC 9.0 3.8 - 9.9 K/cumm Comment:Testing performed by : [address] [address] Hgb 13.2 11.9 - 15.5 g/dL MARY JANE PHAM Comment:Testing performed by : [address] [address] Hct 41.1 35.6 - 45.5 % MARY JANE PHAM Comment:Testing performed by : [address] [address] Plt 277 150 - 400 K/cumm MARY JANE PHAM Comment:Testing performed by : [address] [address] MPV 9.5 9.1 - 12.3 fL MARY JANE PHAM Comment:Testing performed by : [address] [address] RBC 4.53 3.90 - 5.20 M/cumm MARY JANE PHAM Comment:Testing performed by : [address] [address] MCV 90.7 81.3 - 96.4 fL MARY JANE PHAM Comment:Testing performed by : [address] [address] MCH 29.1 27.1 - 33.3 pg MARY JANE PHAM Comment:Testing performed by : [address] [address] MCHC 32.1(L) 32.3 - 35.7 g/dL MARY JANE PHAM Comment:Testing performed by : [address] [address] RDW CV 13.2 11.1 - 14.9 % MARY JANE PHAM Comment:Testing performed by : [address] [address] RDW SD 44.2 35.7 - 48.1 fL MARY JANE PHAM Comment:Testing performed by : [address] [address] NRBC abs 0.00 0.00 - 0.01 K/cumm MARY JANE PHAM Comment:Testing performed by : [address] [address] Blood 07/01/2024 2:02 PM CDT 07/01/2024 2:12 PM CDT us Ilana Stevens MD LAB BLOOD ORDERABLES F inal Result MARY JANE [facility] [place] [address] * Comprehensive metabolic panel (07/01/2024 2:02 PM CDT) Sodium 137 135 - 145 mmol/L Comment:Testing performed by : [address] [address] Potassium, pl 4.2 3.3 - 4.9 mmol/L MARY JANE PHAM Comment:Testing performed by : [address] [address] Chloride 101 97 - 110 mmol/L MARY JANE PHAM Comment:Testing performed by : [address] [address] CO2 27 22 - 32 mmol/L MARY JANE PHAM Comment:Testing performed by : [address] [address] Anion gap 9 2 - 15 mmol/L [facility] Comment:Testing performed by : [address] [address] BUN 15 6 - 25 mg/dL [facility] Comment:Testing performed by : [address] [address] Creatinine 0.60 0.60 - 1.10 mg/dL [facility] Comment:Testing performed by : [address] [address] Glucose 166 70 - 199 mg/dL [facility] Comment: Interpretive Data Fasting glucose >/= 126 mg/dl is diagnostic for diabetes. Fasting is defined as no caloric intake [...] was last revised 2022. Testing performed by: [address] [address] Calcium 9.8 8.5 - 10.3 mg/dL [facility] Comment:Testing performed by : [address] [address] Bilirubin, total 0.5 0.1 - 1.2 mg/dL [facility] Comment:Testing performed by : [address] [address] Protein, pl 8.0 6.5 - 8.5 g/dL [facility] Comment:Testing performed by : [address] [address] Albumin 3.8 3.5 - 5.0 g/dL [facility] Comment:Testing performed by : [address] [address] Alk phos 72 40 - 130 Units/L [facility] Comment:Testing performed by : [address] [address] ALT 19 7 - 45 Units/L MARY JANE PHAM Comment:Testing performed by : [facility], [address] [place] [address]., [address] AST 23 10 - 45 Units/L MARY JANE PHAM Comment:Testing performed by : [facility], [address] [place] [address]., [address] Blood 07/01/2024 2:02 PM CDT 07/01/2024 2:12 PM CDT Ilana Stevens MD LAB BLOOD ORDERABLES F inal Result MARY JANE [address] [facility] Department of Laboratories [place], [place] [id number] * POCT glucose (05/26/2024 4:27 PM [employer]ATION [employer]) Glucose, POC 137 70 - 199 mg/dL Blood 05/26/2024 4:27 PM SOUND INSTALLATION WORKER 05/26/2024 4:27 PM SOUND INSTALLATION WORKER Carlos Real MD LAB POCT ORDERABLES - DEVICE Fin al Result Performing Organization Address [facility] Co de Phone Number MARY JANE [facility] [place] [address] * POCT glucose (05/26/2024 11:38 AM SOUND INSTALLATION WORKER) Glucose, POC 146 70 - 199 mg/dL Blood 05/26/2024 11:3 8 AM SOUND INSTALLATION WORKER 05/26/2024 11:38 AM SOUND INSTALLATION WORKER Result [facility] Carlos Real MD LAB POCT ORDERABLES - DEVICE Fin al Result Performing Organization Address [facility] Co de Phone Number [facility] [place] [address] * POCT glucose (05/26/2024 8:12 AM SOUND INSTALLATION WORKER) Glucose, POC 134 70 - 199 mg/dL Blood 05/26/2024 8:12 AM SOUND INSTALLATION WORKER 05/26/2024 8:12 AM SOUND INSTALLATION WORKER Carlos Real MD LAB POCT ORDERABLES - DEVICE Fin al Result Performing Organization Address [facility] Co de Phone Number MARY JANE [facility] Department [place] [address] * eGFR (05/26/2024 12:05 AM SOUND INSTALLATION WORKER) Pathologist [facility] eGFR >90 >=60 mL/min/1. 73 m2 Comment: Interpretive Data Reference Interval Normal >/= 90 mL/min/1.73m2 Mildly decreased* 60 - 89 mL/min/1.73m2 Mildly to moderately decreased 45 - 59 mL/min/1.73m2 Moderately to severely decreased 30 - 44 mL/min/1.73m2 Severely decreased 15 - 29 mL/min/1.73m2 Kidney Failure < 15 mL/min/1.73m2 *Relative to young adult level Estimated glomerular [...] interpretive data was last reviewed 2021. Blood 05/26/2024 12:0 5 AM SOUND INSTALLATION WORKER 05/26/2024 12:23 AM SOUND INSTALLATION WORKER Carlos Real MD LAB BLOOD ORDERABLES Final Resul t Performing Organization Address [facility] Co de Phone Number [facility] Department [place] [address] * (ABNORMAL) Differential, auto (05/26/2024 12:05 AM SOUND INSTALLATION WORKER) Pathologist [facility] Neutrophil abs 6.4 1.5 - 6.5 K/cumm Imm gran abs 0.0 0.0 - 0.1 K/cumm [facility] Lymphocyte abs 2.9 0.8 - 3.3 K/cumm [facility] Monocyte abs 0.9(H) 0.2 - 0.8 K/cumm [facility] Eosinophil abs 0.3 0.0 - 0.5 K/cumm [facility] Basophil abs 0.0 0.0 - 0.1 K/cumm [facility] Neutrophil pct 60.4 % [facility] Comment: Interpretive Data Percent cell count reference ranges are not reported, since discordance with absolute values may lead to misinterpretation of CBC data. Current Interpretive Data was last revised on 2017. Imm gran pct 0.4 % [facility] Comment: Interpretive Data Percent cell count reference ranges are not reported, since discordance with absolute values may lead to misinterpretation of CBC data. Current Interpretive Data was last revised on 2017. Lymphocyte pct 27.5 % [facility] Comment: Interpretive Data Percent cell count reference ranges are not reported, since discordance with absolute values may lead to misinterpretation of CBC data. Current Interpretive Data was last revised on 2017. Monocyte pct 8.2 % [facility] Comment: Interpretive Data Percent cell count reference ranges are not reported, since discordance with absolute values may lead to misinterpretation of CBC data. Current Interpretive Data was last revised on 2017. Eosinophil pct 3.1 % [facility] Comment: Interpretive Data Percent cell count reference ranges are not reported, since discordance with absolute values may lead to misinterpretation of CBC data. Current Interpretive Data was last revised on 2017. Basophil pct 0.4 % [facility] Comment: Interpretive Data Percent cell count reference ranges are not reported, since discordance with absolute values may lead to misinterpretation of CBC data. Current Interpretive Data was last revised on 2017. Blood 05/26/2024 12:0 5 AM SOUND INSTALLATION WORKER 05/26/2024 12:07 AM SOUND INSTALLATION WORKER us Carlos Real MD LAB BLOOD ORDERABLES Final Resul t [facility] Department [place] [address] * (ABNORMAL) CBC with auto differential (05/26/2024 12:05 AM SOUND INSTALLATION WORKER) Pathologist [facility] WBC 10.6(H) 3.8 - 9.9 K/cumm Hgb 12.5 11.9 - 15.5 g/dL [facility] Hct 39.2 35.6 - 45.5 % [facility] Plt 248 150 - 400 K/cumm [facility] MPV 9.7 9.1 - 12.3 fL [facility] RBC 4.32 3.90 - 5.20 M/cumm [facility] MCV 90.7 81.3 - 96.4 fL [facility] MCH 28.9 27.1 - 33.3 pg [facility] MCHC 31.9(L) 32.3 - 35.7 g/dL [facility] RDW CV 13.5 11.1 - 14.9 % [facility] RDW SD 45.1 35.7 - 48.1 fL [facility] NRBC abs 0.00 0.00 - 0.01 K/cumm [facility] Blood 05/26/2024 12:0 5 AM SOUND INSTALLATION WORKER 05/26/2024 12:07 AM SOUND INSTALLATION WORKER Carlos Real MD LAB BLOOD ORDERABLES Final Resul t Performing Organization Address City/[facility] de Phone Number [facility] [place] [employer] [place] [address] * Phosphorus (05/26/2024 12:05 AM SOUND INSTALLATION WORKER) [facility] Phosphorus, pl 3.2 2.3 - 4.5 mg/dL Blood 05/26/2024 12:0 5 AM SOUND INSTALLATION WORKER 05/26/2024 12:08 AM SOUND INSTALLATION WORKER Carlos Real MD LAB BLOOD ORDERABLES Final Resul t Performing Organization Address [facility] de Phone Number [facility] [place] [address] * Magnesium (05/26/2024 12:05 AM SOUND INSTALLATION WORKER) Magnesium 1.8 1.4 - 2.5 mg/dL Blood 05/26/2024 12:0 5 AM SOUND INSTALLATION WORKER 05/26/2024 12:08 AM SOUND INSTALLATION WORKER Carlos Real MD LAB BLOOD ORDERABLES Final Resul t [facility] Department [place] [address] * (ABNORMAL) Comprehensive metabolic panel (05/26/2024 12:05 AM SOUND INSTALLATION WORKER) Pathologist [facility] Sodium 136 135 - 145 mmol/L Potassium, pl 4.2 3.3 - 4.9 mmol/L [facility] Chloride 101 97 - 110 mmol/L [facility] CO2 29 22 - 32 mmol/L [facility] Anion gap 6 2 - 15 mmol/L [facility] BUN 19 6 - 25 mg/dL [facility] Creatinine 0.67 0.60 - 1.10 mg/dL [facility] Glucose 164 70 - 199 mg/dL [facility] Comment: Interpretive Data Fasting glucose >/= 126 mg/dl is diagnostic for diabetes. Fasting is defined as no caloric intake [...] 2022. Calcium 9.4 8.5 - 10.3 mg/dL [facility] Bilirubin, total 0.4 0.1 - 1.2 mg/dL [facility] Protein, pl 7.1 6.5 - 8.5 g/dL [facility] Albumin 3.3(L) 3.5 - 5.0 g/dL [facility] Alk phos 65 40 - 130 Units/L [facility] ALT 17 7 - 45 Units/L [facility] AST 19 10 - 45 Units/L [facility] Blood 05/26/2024 12:0 5 AM SOUND INSTALLATION WORKER 05/26/2024 12:08 AM SOUND INSTALLATION WORKER Result [facility] Carlos Real MD LAB BLOOD ORDERABLES Final Resul t Performing Organization Address [facility] de Phone Number [facility] [place] [place] [address] * POCT glucose (05/25/2024 7:44 PM SOUND INSTALLATION WORKER) Glucose, POC 160 70 - 199 mg/dL Blood 05/25/2024 7:44 PM SOUND INSTALLATION WORKER 05/25/2024 7:44 PM SOUND INSTALLATION WORKER Result [facility] Carlos Rael MD LAB POCT ORDERABLES - DEVICE Fin al Result Performing Organization Address [facility] de Phone Number [facility] [place] [place] [address] * POCT glucose (05/25/2024 5:24 PM SOUND INSTALLATION WORKER) Glucose, POC 152 70 - 199 mg/dL Blood 05/25/2024 5:24 PM SOUND INSTALLATION WORKER 05/25/2024 5:24 PM SOUND INSTALLATION WORKER Result [facility] Carlos Real MD LAB POCT ORDERABLES - DEVICE Fin al Result Performing Organization Address [facility] de Phone Number [facility] [place] [address] * POCT glucose (05/25/2024 11:37 AM SOUND INSTALLATION WORKER) Glucose, POC 143 70 - 199 mg/dL Blood 05/25/2024 11:3 7 AM SOUND INSTALLATION WORKER 05/25/2024 11:37 AM SOUND INSTALLATION WORKER Carlos Real MD LAB POCT ORDERABLES - DEVICE Fin al Result Performing Organization Address [facility] de Phone Number [facility] [place] [address] * POCT glucose (05/25/2024 7:27 AM SOUND INSTALLATION WORKER) Glucose, POC 134 70 - 199 mg/dL Blood 05/25/2024 7:27 AM SOUND INSTALLATION WORKER 05/25/2024 7:27 AM SOUND INSTALLATION WORKER Carlos Real MD LAB POCT ORDERABLES - DEVICE Fin al Result Performing Organization Address [facility] de Phone Number [facility] [place] [address] * eGFR (05/25/2024 12:20 AM SOUND INSTALLATION WORKER) eGFR >90 >=60 mL/min/1. 73 m2 Comment: Interpretive Data Reference Interval Normal >/= 90 mL/min/1.73m2 Mildly decreased* 60 - 89 mL/min/1.73m2 Mildly to moderately decreased 45 - 59 mL/min/1.73m2 Moderately to severely decreased 30 - 44 mL/min/1.73m2 Severely decreased 15 - 29 mL/min/1.73m2 Kidney Failure < 15 mL/min/1.73m2 *Relative to young adult level Estimated glomerular [...] interpretive data was last reviewed 2021. Blood 05/25/2024 12:2 0 AM SOUND INSTALLATION WORKER 05/25/2024 12:43 AM SOUND INSTALLATION WORKER Naila Guzman NP LAB BLOOD ORDERABLES Final Result Performing Organization Address [facility] Co de Phone Number MARY JANE [facility] Department [place] [address] * Differential, auto (05/25/2024 12:20 AM SOUND INSTALLATION WORKER) Neutrophil abs 5.9 1.5 - 6.5 K/cumm Imm gran abs 0.0 0.0 - 0.1 K/cumm [facility] Lymphocyte abs 2.4 0.8 - 3.3 K/cumm [facility] Monocyte abs 0.8 0.2 - 0.8 K/cumm [facility] Eosinophil abs 0.3 0.0 - 0.5 K/cumm [facility] Basophil abs 0.0 0.0 - 0.1 K/cumm [facility] Neutrophil pct 62.6 % [facility] Comment: Interpretive Data Percent cell count reference ranges are not reported, since discordance with absolute values may lead to misinterpretation of CBC data. Current Interpretive Data was last revised on 2017. Imm gran pct 0.3 % [facility] Comment: Interpretive Data Percent cell count reference ranges are not reported, since discordance with absolute values may lead to misinterpretation of CBC data. Current Interpretive Data was last revised on 2017. Lymphocyte pct 24.8 % [facility] Comment: Interpretive Data Percent cell count reference ranges are not reported, since discordance with absolute values may lead to misinterpretation of CBC data. Current Interpretive Data was last revised on 2017. Monocyte pct 8.8 % [facility] Comment: Interpretive Data Percent cell count reference ranges are not reported, since discordance with absolute values may lead to misinterpretation of CBC data. Current Interpretive Data was last revised on 2017. Eosinophil pct 3.2 % [facility] Comment: Interpretive Data Percent cell count reference ranges are not reported, since discordance with absolute values may lead to misinterpretation of CBC data. Current Interpretive Data was last revised on 2017. Basophil pct 0.3 % [facility] Comment: Interpretive Data Percent cell count reference ranges are not reported, since discordance with absolute values may lead to misinterpretation of CBC data. Current Interpretive Data was last revised on 2017. Blood 05/25/2024 12:2 0 AM SOUND INSTALLATION WORKER 05/25/2024 12:29 AM SOUND INSTALLATION WORKER Naila Guzman DIRECTOR EXPERIMENTAL MEDICINE LAB BLOOD ORDERABLES Final Result Performing Organization Address [facility]/ZIP Co de Phone Number [facility] [place] [address] * (ABNORMAL) CBC with auto differential (05/25/2024 12:20 AM SOUND INSTALLATION WORKER) WBC 9.5 3.8 - 9.9 K/cumm Hgb 12.8 11.9 - 15.5 g/dL [facility] Hct 40.0 35.6 - 45.5 % [facility] Plt 246 150 - 400 K/cumm [facility] MPV 9.8 9.1 - 12.3 fL [facility] RBC 4.42 3.90 - 5.20 M/cumm [facility] MCV 90.5 81.3 - 96.4 fL [facility] MCH 29.0 27.1 - 33.3 pg [facility] MCHC 32.0(L) 32.3 - 35.7 g/dL [facility] RDW CV 13.5 11.1 - 14.9 % [facility] RDW SD 45.3 35.7 - 48.1 fL [facility] NRBC abs 0.00 0.00 - 0.01 K/cumm [facility] Blood 05/25/2024 12:2 0 AM SOUND INSTALLATION WORKER 05/25/2024 12:29 AM SOUND INSTALLATION WORKER Naila Guzman NP LAB BLOOD ORDERABLES Final Result [facility] [place] [address] * Phosphorus (05/25/2024 12:20 AM SOUND INSTALLATION WORKER) Phosphorus, pl 3.1 2.3 - 4.5 mg/dL Blood 05/25/2024 12:2 0 AM SOUND INSTALLATION WORKER 05/25/2024 12:29 AM SOUND INSTALLATION WORKER Naila Guzman NP LAB BLOOD ORDERABLES Final Result Performing Organization Address [facility]/ZIP Co de Phone Number [facility] [place] [address] * Magnesium (05/25/2024 12:20 AM SOUND INSTALLATION WORKER) Pathologist [facility] Magnesium 1.9 1.4 - 2.5 mg/dL Blood 05/25/2024 12:2 0 AM SOUND INSTALLATION WORKER 05/25/2024 12:29 AM SOUND INSTALLATION WORKER Naila Guzman NP LAB BLOOD ORDERABLES Final Result Performing Organization Address [facility] de Phone Number [facility] [place] [address] * (ABNORMAL) Comprehensive metabolic panel (05/25/2024 12:20 AM SOUND INSTALLATION WORKER) Pathologist [facility] Sodium 138 135 - 145 mmol/L Potassium, pl 4.4 3.3 - 4.9 mmol/L [facility] Chloride 101 97 - 110 mmol/L [facility] CO2 29 22 - 32 mmol/L [facility] Anion gap 8 2 - 15 mmol/L [facility] BUN 20 6 - 25 mg/dL [facility] Creatinine 0.69 0.60 - 1.10 mg/dL [facility] Glucose 156 70 - 199 mg/dL [facility] Comment: Interpretive Data Fasting glucose >/= 126 mg/dl is diagnostic for diabetes. Fasting is defined as no caloric intake [...] 2022. Calcium 9.4 8.5 - 10.3 mg/dL [facility] Bilirubin, total 0.5 0.1 - 1.2 mg/dL [facility] Protein, pl 7.4 6.5 - 8.5 g/dL [facility] Albumin 3.4(L) 3.5 - 5.0 g/dL [facility] Alk phos 67 40 - 130 Units/L [facility] ALT 18 7 - 45 Units/L [facility] AST 16 10 - 45 Units/L [facility] Blood 05/25/2024 12:2 0 AM SOUND INSTALLATION WORKER 05/25/2024 12:29 AM SOUND INSTALLATION WORKER Naila Guzman DIRECTOR EXPERIMENTAL MEDICINE LAB BLOOD ORDERABLES Final Result Performing Organization Address [facility] de Phone Number [facility] [place] [employer] [place] [address] * POCT glucose (05/24/2024 8:13 PM SOUND INSTALLATION WORKER) Glucose, POC 171 70 - 199 mg/dL Blood 05/24/2024 8:13 PM SOUND INSTALLATION WORKER 05/24/2024 8:13 PM SOUND INSTALLATION WORKER Result [facility] Carlos Real MD LAB POCT ORDERABLES - DEVICE Fin al Result Performing Organization Address [facility] de Phone Number [facility] [place] [place] [address] * POCT glucose (05/24/2024 5:17 PM SOUND INSTALLATION WORKER) Glucose, POC 133 70 - 199 mg/dL Blood 05/24/2024 5:17 PM SOUND INSTALLATION WORKER 05/24/2024 5:17 PM SOUND INSTALLATION WORKER Carlos Real MD LAB POCT ORDERABLES - DEVICE Fin al Result Performing Organization Address [facility] Co de Phone Number [facility] Department [place] [address] * POCT glucose (05/24/2024 12:49 PM SOUND INSTALLATION WORKER) Glucose, POC 180 70 - 199 mg/dL Blood 05/24/2024 12:4 9 PM SOUND INSTALLATION WORKER 05/24/2024 12:49 PM SOUND INSTALLATION WORKER Carlos Real MD LAB POCT ORDERABLES - DEVICE Fin al Result Performing Organization Address [facility] de [place] [address] * POCT glucose (05/24/2024 9:22 AM SOUND INSTALLATION WORKER) Glucose, POC 139 70 - 199 mg/dL Blood 05/24/2024 9:22 AM SOUND INSTALLATION WORKER 05/24/2024 9:22 AM SOUND INSTALLATION WORKER Carlos Real MD LAB POCT ORDERABLES - DEVICE Fin al Result Performing Organization Address [facility] de [place] [address] * Herpes Simplex Virus (HSV) PCR Oral (05/24/2024 8:47 AM SOUND INSTALLATION WORKER) [facility] HSV DNA Not Detected Not Detected [facility] Comment: Interpretive Data This assay is performed using primers specific for the DNA polymerase gene of both HSV-1 and HSV-2. The assay contains unique primer/probe sets capable of distinguishing between HSV-1 and HSV-2. This assay has been cleared by the U.S. Food and Drug Administration for performance on cerebrospinal fluid and genital swabs. The assay has been evaluated for use on alternative sample types, though it is not FDA cleared for these applications. The performance of all sample types has been validated by the performing laboratory and deemed acceptable for patient testing. Current Interpretive Data was last reviewed on 08/21/2018 Oral 05/24/2024 8:47 AM SOUND INSTALLATION WORKER 05/24/2024 9:24 AM SOUND INSTALLATION WORKER Narrative [facility] - 05/24/2024 4:28 PM SOUND INSTALLATION WORKER Oral ulcer swab Naila Guzman NP LAB MICROBIOLOGY - GENERAL ORDERABLES Final Result Performing Organization Address [facility] Co de Phone Number [facility] [place] [address] [facility] * POCT glucose (05/24/2024 8:22 AM SOUND INSTALLATION WORKER) Glucose, POC 132 70 - 199 mg/dL Blood 05/24/2024 8:22 AM SOUND INSTALLATION WORKER 05/24/2024 8:22 AM SOUND INSTALLATION WORKER Carlos Real MD LAB POCT ORDERABLES - DEVICE Fin al Result Performing Organization Address [facility] de Phone Number [facility] Department [place] [address] * eGFR (05/24/2024 12:29 AM SOUND INSTALLATION WORKER) eGFR 87 >=60 mL/min/1. 73 m2 Comment: Interpretive Data Reference Interval Normal >/= 90 mL/min/1.73m2 Mildly decreased* 60 - 89 mL/min/1.73m2 Mildly to moderately decreased 45 - 59 mL/min/1.73m2 Moderately to severely decreased 30 - 44 mL/min/1.73m2 Severely decreased 15 - 29 mL/min/1.73m2 Kidney Failure < 15 mL/min/1.73m2 *Relative to young adult level Estimated glomerular [...] interpretive data was last reviewed 2021. Blood 05/24/2024 12:2 9 AM SOUND INSTALLATION WORKER 05/24/2024 12:54 AM SOUND INSTALLATION WORKER us Naila Romero Thomas DIRECTOR EXPERIMENTAL MEDICINE LAB BLOOD ORDERABLES Final Result [facility] Department [place] [address] * (ABNORMAL) Differential, auto (05/24/2024 12:29 AM SOUND INSTALLATION WORKER) Neutrophil abs 5.3 1.5 - 6.5 K/cumm Imm gran abs 0.0 0.0 - 0.1 K/cumm [facility] Lymphocyte abs 3.0 0.8 - 3.3 K/cumm [facility] Monocyte abs 0.9(H) 0.2 - 0.8 K/cumm [facility] Eosinophil abs 0.3 0.0 - 0.5 K/cumm [facility] Basophil abs 0.0 0.0 - 0.1 K/cumm [facility] Neutrophil pct 55.8 % [facility] Comment: Interpretive Data Percent cell count reference ranges are not reported, since discordance with absolute values may lead to misinterpretation of CBC data. Current Interpretive Data was last revised on 2017. Imm gran pct 0.4 % [facility] Comment: Interpretive Data Percent cell count reference ranges are not reported, since discordance with absolute values may lead to misinterpretation of CBC data. Current Interpretive Data was last revised on 2017. Lymphocyte pct 31.4 % [facility] Comment: Interpretive Data Percent cell count reference ranges are not reported, since discordance with absolute values may lead to misinterpretation of CBC data. Current Interpretive Data was last revised on 2017. Monocyte pct 9.0 % [facility] Comment: Interpretive Data Percent cell count reference ranges are not reported, since discordance with absolute values may lead to misinterpretation of CBC data. Current Interpretive Data was last revised on 2017. Eosinophil pct 3.0 % [facility] Comment: Interpretive Data Percent cell count reference ranges are not reported, since discordance with absolute values may lead to misinterpretation of CBC data. Current Interpretive Data was last revised on 2017. Basophil pct 0.4 % [facility] Comment: Interpretive Data Percent cell count reference ranges are not reported, since discordance with absolute values may lead to misinterpretation of CBC data. Current Interpretive Data was last revised on 2017. Blood 05/24/2024 12:2 9 AM SOUND INSTALLATION WORKER 05/24/2024 12:54 AM SOUND INSTALLATION WORKER Naila Guzman NP LAB BLOOD ORDERABLES Final Result Performing Organization Address [facility]/ZIP Co de Phone Number [facility] [place] [place] [address] * CBC with auto differential (05/24/2024 12:29 AM SOUND INSTALLATION WORKER) WBC 9.5 3.8 - 9.9 K/cumm Hgb 12.6 11.9 - 15.5 g/dL [facility] Hct 39.0 35.6 - 45.5 % [facility] Plt 223 150 - 400 K/cumm [facility] MPV 9.6 9.1 - 12.3 fL [facility] RBC 4.23 3.90 - 5.20 M/cumm [facility] MCV 92.2 81.3 - 96.4 fL [facility] MCH 29.8 27.1 - 33.3 pg [facility] MCHC 32.3 32.3 - 35.7 g/dL [facility] RDW CV 13.7 11.1 - 14.9 % [facility] RDW SD 46.5 35.7 - 48.1 fL [facility] NRBC abs 0.00 0.00 - 0.01 K/cumm [facility] Blood 05/24/2024 12:2 9 AM SOUND INSTALLATION WORKER 05/24/2024 12:54 AM SOUND INSTALLATION WORKER us Naila Guzman NP LAB BLOOD ORDERABLES Final Result Performing Organization Address [facility]/ZIP Co de Phone Number [facility] Department [place] [address] * Phosphorus (05/24/2024 12:29 AM SOUND INSTALLATION WORKER) Pathologist [facility] Phosphorus, pl 3.6 2.3 - 4.5 mg/dL Blood 05/24/2024 12:2 9 AM SOUND INSTALLATION WORKER 05/24/2024 12:54 AM SOUND INSTALLATION WORKER Naila Guzman NP LAB BLOOD ORDERABLES Final Result Performing Organization Address [facility] de Phone Number [facility] Department [place] [address] * Magnesium (05/24/2024 12:29 AM SOUND INSTALLATION WORKER) [facility] Magnesium 1.9 1.4 - 2.5 mg/dL Blood 05/24/2024 12:2 9 AM SOUND INSTALLATION WORKER 05/24/2024 12:54 AM SOUND INSTALLATION WORKER Naila Guzman NP LAB BLOOD ORDERABLES Final Result Performing Organization Address [facility] de Phone Number [facility] Department [place] [address] * (ABNORMAL) Comprehensive metabolic panel (05/24/2024 12:29 AM SOUND INSTALLATION WORKER) [facility] Sodium 139 135 - 145 mmol/L Potassium, pl 4.3 3.3 - 4.9 mmol/L [facility] Chloride 103 97 - 110 mmol/L [facility] CO2 29 22 - 32 mmol/L [facility] Anion gap 7 2 - 15 mmol/L [facility] BUN 19 6 - 25 mg/dL [facility] Creatinine 0.75 0.60 - 1.10 mg/dL [facility] Glucose 157 70 - 199 mg/dL [facility] Comment: Interpretive Data Fasting glucose >/= 126 mg/dl is diagnostic for diabetes. Fasting is defined as no caloric intake [...] interpretive data was last revised 2022. Calcium 9.2 8.5 - 10.3 mg/dL [facility] Bilirubin, total 0.4 0.1 - 1.2 mg/dL [facility] Protein, pl 7.1 6.5 - 8.5 g/dL [facility] Albumin 3.3(L) 3.5 - 5.0 g/dL [facility] Alk phos 65 40 - 130 Units/L [facility] ALT 18 7 - 45 Units/L [facility] AST 17 10 - 45 Units/L [facility] Blood 05/24/2024 12:2 9 AM SOUND INSTALLATION WORKER 05/24/2024 12:54 AM SOUND INSTALLATION WORKER Naila Guzman NP LAB BLOOD ORDERABLES Final Result Performing Organization Address [facility]/ZIP Co de Phone Number [facility] Department [place] [address] * POCT glucose (05/23/2024 8:16 PM SOUND INSTALLATION WORKER) Glucose, POC 145 70 - 199 mg/dL Blood 05/23/2024 8:1 6 PM SOUND INSTALLATION WORKER 05/23/2024 8:16 PM SOUND INSTALLATION WORKER Carlos Real MD LAB POCT ORDERABLES - DEVICE Fin al Result Performing Organization Address [facility]/ZIP Co de Phone Number [facility] Department [place] [address] * POCT glucose (05/23/2024 6:14 PM SOUND INSTALLATION WORKER) Glucose, POC 181 70 - 199 mg/dL Blood 05/23/2024 6:14 PM SOUND INSTALLATION WORKER 05/23/2024 6:14 PM SOUND INSTALLATION WORKER Carlos Real MD LAB POCT ORDERABLES - DEVICE Fin al Result Performing Organization Address [facility] Co de Phone Number MARY JANE [facility] Department [place] [address] * POCT glucose (05/23/2024 12:17 PM SOUND INSTALLATION WORKER) Glucose, POC 159 70 - 199 mg/dL Blood 05/23/2024 12:1 7 PM SOUND INSTALLATION WORKER 05/23/2024 12:17 PM SOUND INSTALLATION WORKER us Cem Knapp MD LAB POCT ORDERABLES - DEVIC E Final Result Performing Organization Address [facility] de Phone Number MARY JANE [facility] Department [place] [address] * US Vein Duplex Lower Extremity Bilateral Complete (05/23/2024 11:45 AM SOUND INSTALLATION WORKER) Pathologist [facility] LV EF % CONS SCIMAGE Anatomical Region Laterality Modality Vascular Bilateral Ultrasound 05/23/2024 11:1 2 AM SOUND INSTALLATION WORKER Narrative 05/23/2024 9:43 PM SOUND INSTALLATION WORKER [facility] [employer] - Department of Vascular Surgery, Vascular Laboratory [address] [place] [id number] Lower Extremity Venous Ultrasound Report Patient Name: MOHSEN MARQUES M : 1955 (68y 11m) Study Date: 05/23/2024 11:12:03 AM Gender: F Tech: VELVET Location: [id number] Ref Provider: CARLOS REAL Quality: Adequate Order Provider: CARLOS REAL PROCEDURES: Vascular Report: Venous Duplex imaging was performed bilaterally in the lower extremities. The common femoral, femoral, popliteal, posterior tibial, peroneal veins were evaluated for patency, spontaneity and phasicity with Doppler, compression and augmentation maneuvers. Great saphenous vein proximal at the junction was evaluated with compression maneuvers. INDICATIONS: Localized edema. FINDINGS: Performing Contract Negotiator: Marlys Brown RVT. Bilateral: Venous Doppler signals in the bilateral lower extremity are within normal limits for spontaneity and phasicity and respond normally to augmentation maneuvers. No evidence of deep vein thrombus by duplex, proximal to the calf. Comments: Limited visualization of the deep calf veins due to edema. CONCLUSIONS: 1. There is no evidence of acute deep vein thrombosis in the lower extremities bilaterally. Noninvasive venous studies cannot rule out isolated calf vein obstruction. HISTORY: Not identified. PREVIOUS STUDIES: Previous study performed on 08/17/2023@[facility]. DISCLAIMER: The study images and the final report will be retained in the patient chart by the Vascular Laboratory for the legally required time period. This chart constitutes the legal record of any testing performed. ATTESTATION: I have reviewed and interpreted the pertinent images and measurements of this study. I attest to the conclusions in the final report that is provided above. Electronically Signed By: Vu Obregon MD FACS 05/23/2024 9:42:19 PM SOUND INSTALLATION WORKER Procedure Note Vu Obregon MD - 05/23/2024 [employer] - Department of Vascular Surgery,Vascular Laboratory [address] [place] [id number] Lower Extremity Venous Ultrasound Report Patient Name: MOHSEN MARQUES M : 1955 (68y 11m) Study Date: 05/23/2024 11:12:03 AM Gender: F Tech: HeathBROWN Location: [id number] Ref Provider: CARLOS REAL Quality: Adequate Order Provider: CARLOS REAL PROCEDURES: Vascular Report: Venous Duplex imaging was performed bilaterally in the lower extremities.The common femoral, femoral, popliteal, posterior tibial, peroneal veins wereevaluated for patency, spontaneity and phasicity with Doppler, compression and augmentationmaneuvers. Great saphenous vein proximal at the junction was evaluated with compressionmaneuvers. INDICATIONS: Localized edema. FINDINGS: Performing Contract Negotiator: Marlys Brown RVT. Bilateral: Venous Doppler signals in the bilateral lower extremity are within normallimits for spontaneity and phasicity and respond normally to augmentation maneuvers.No evidence of deep vein thrombus by duplex, proximal to the calf. Comments: Limited visualization of the deep calf veins due to edema. CONCLUSIONS: 1. There is no evidence of acute deep vein thrombosis in the lowerextremities bilaterally. Noninvasive venous studies cannot rule out isolated calf veinobstruction. HISTORY: Not identified. PREVIOUS STUDIES: Previous study performed on 08/17/2023@[facility]. DISCLAIMER: The study images and the final report will be retained in the patientchart by the Vascular Laboratory for the legally required time period. This chartconstitutes the legal record of any testing performed. ATTESTATION: I have reviewed and interpreted the pertinent images and measurements ofthis study. I attest to the conclusions in the final report that is provided above. Electronically Signed By: Vu Obregon MD FACS 05/23/2024 9:42:19 PM SOUND INSTALLATION WORKER Carlos Real MD IMG US PROCEDURES Final Result * (ABNORMAL) POCT glucose (05/23/2024 8:16 AM SOUND INSTALLATION WORKER) Glucose, POC 204(H) 70 - 199 mg/dL Blood 05/23/2024 8:16 AM SOUND INSTALLATION WORKER 05/23/2024 8:16 AM SOUND INSTALLATION WORKER Cem Knapp MD LAB POCT ORDERABLES - DEVIC E Final Result Performing Organization Address City/State/[facility] Co de Phone Number [facility] Department [place] [address] * (ABNORMAL) Differential, auto (05/23/2024 2:30 AM SOUND INSTALLATION WORKER) Neutrophil abs 8.0(H) 1.5 - 6.5 K/cumm Imm gran abs 0.1 0.0 - 0.1 K/cumm [facility] Lymphocyte abs 2.6 0.8 - 3.3 K/cumm [facility] Monocyte abs 1.0(H) 0.2 - 0.8 K/cumm [facility] Eosinophil abs 0.3 0.0 - 0.5 K/cumm [facility] Basophil abs 0.0 0.0 - 0.1 K/cumm [facility] Neutrophil pct 66.5 % [facility] Comment: Interpretive Data Percent cell count reference ranges are not reported, since discordance with absolute values may lead to misinterpretation of CBC data. Current Interpretive Data was last revised on 2017. Imm gran pct 0.5 % [facility] Comment: Interpretive Data Percent cell count reference ranges are not reported, since discordance with absolute values may lead to misinterpretation of CBC data. Current Interpretive Data was last revised on 2017. Lymphocyte pct 21.9 % [facility] Comment: Interpretive Data Percent cell count reference ranges are not reported, since discordance with absolute values may lead to misinterpretation of CBC data. Current Interpretive Data was last revised on 2017. Monocyte pct 8.5 % [facility] Comment: Interpretive Data Percent cell count reference ranges are not reported, since discordance with absolute values may lead to misinterpretation of CBC data. Current Interpretive Data was last revised on 2017. Eosinophil pct 2.3 % [facility] Comment: Interpretive Data Percent cell count reference ranges are not reported, since discordance with absolute values may lead to misinterpretation of CBC data. Current Interpretive Data was last revised on 2017. Basophil pct 0.3 % [facility] Comment: Interpretive Data Percent cell count reference ranges are not reported, since discordance with absolute values may lead to misinterpretation of CBC data. Current Interpretive Data was last revised on 2017. Blood 05/23/2024 2:30 AM SOUND INSTALLATION WORKER 05/23/2024 1:03 AM SOUND INSTALLATION WORKER us Naila Guzman NP LAB BLOOD ORDERABLES Final Result [facility] Department [place] [address] * (ABNORMAL) CBC with auto differential (05/23/2024 2:30 AM SOUND INSTALLATION WORKER) WBC 11.9(H) 3.8 - 9.9 K/cumm Hgb 12.8 11.9 - 15.5 g/dL [facility] Hct 39.6 35.6 - 45.5 % [facility] Plt 254 150 - 400 K/cumm [facility] MPV 9.7 9.1 - 12.3 fL [facility] RBC 4.43 3.90 - 5.20 M/cumm [facility] MCV 89.4 81.3 - 96.4 fL [facility] MCH 28.9 27.1 - 33.3 pg [facility] MCHC 32.3 32.3 - 35.7 g/dL [facility] RDW CV 13.7 11.1 - 14.9 % [facility] RDW SD 44.6 35.7 - 48.1 fL [facility] NRBC abs 0.00 0.00 - 0.01 K/cumm [facility] Blood 05/23/2024 2:30 AM SOUND INSTALLATION WORKER 05/23/2024 1:03 AM SOUND INSTALLATION WORKER us Naila Guzman NP LAB BLOOD ORDERABLES Final Result Performing Organization Address City/[facility]/ZIP Co de Phone Number [facility] [place] [employer] [place] [address] * eGFR (05/23/2024 12:42 AM SOUND INSTALLATION WORKER) eGFR 84 >=60 mL/min/1. 73 m2 Comment: Interpretive Data Reference Interval Normal >/= 90 mL/min/1.73m2 Mildly decreased* 60 - 89 mL/min/1.73m2 Mildly to moderately decreased 45 - 59 mL/min/1.73m2 Moderately to severely decreased 30 - 44 mL/min/1.73m2 Severely decreased 15 - 29 mL/min/1.73m2 Kidney Failure < 15 mL/min/1.73m2 *Relative to young adult level Estimated glomerular [...] interpretive data was last reviewed 2021. Blood 05/23/2024 12:4 2 AM SOUND INSTALLATION WORKER 05/23/2024 1:02 AM SOUND INSTALLATION WORKER us Naila Guzman NP LAB BLOOD ORDERABLES Final Result [facility] [place] [employer] [place] [address] * Type and screen (05/23/2024 12:42 AM SOUND INSTALLATION WORKER) Pathologist [facility] ABO Rh O Positive Dilcia, indirect Negative [facility] Blood 05/23/2024 12:4 2 AM SOUND INSTALLATION WORKER 05/23/2024 12:52 AM SOUND INSTALLATION WORKER Narrative [facility] - 05/23/2024 1:53 AM SOUND INSTALLATION WORKER Has the patient had Daratumumab or Isatuximab in the past 6 months?->Unknown us Naila Guzman NP LAB BLOOD BANK TEST ORDERA BLES Final Result Performing Organization Address [facility] Co de Phone Number [facility] [place] [address] * Uric acid (05/23/2024 12:42 AM SOUND INSTALLATION WORKER) [facility] Uric acid 5.5 2.5 - 7.0 mg/dL Blood 05/23/2024 12:4 2 AM SOUND INSTALLATION WORKER 05/23/2024 1:02 AM SOUND INSTALLATION WORKER Narrative [facility] - 05/23/2024 1:34 AM SOUND INSTALLATION WORKER Monday and only. Morning draw. . Naila Guzman NP LAB BLOOD ORDERABLES Final Result Performing Organization Address [facility] de Phone Number [facility] Department [place] [employer] [place] [address] * Phosphorus (05/23/2024 12:42 AM SOUND INSTALLATION WORKER) Pathologist [facility] Phosphorus, pl 4.4 2.3 - 4.5 mg/dL Blood 05/23/2024 12:4 2 AM SOUND INSTALLATION WORKER 05/23/2024 1:02 AM SOUND INSTALLATION WORKER Naila Guzman NP LAB BLOOD ORDERABLES Final Result Performing Organization Address [facility] Co de Phone Number [facility] Department [place] [address] * Magnesium (05/23/2024 12:42 AM SOUND INSTALLATION WORKER) Pathologist [facility] Magnesium 1.9 1.4 - 2.5 mg/dL Blood 05/23/2024 12:4 2 AM SOUND INSTALLATION WORKER 05/23/2024 1:02 AM SOUND INSTALLATION WORKER Naila Guzman NP LAB BLOOD ORDERABLES Final Result Performing Organization Address [facility] Co de Phone Number [facility] [place] [place] [address] * Lactate dehydrogenase (LD) (05/23/2024 12:42 AM SOUND INSTALLATION WORKER) [facility] Lactate dehydrogenase (LDH) 247 100 - 250 Units/L Blood 05/23/2024 12:4 2 AM SOUND INSTALLATION WORKER 05/23/2024 1:02 AM SOUND INSTALLATION WORKER Narrative [facility] - 05/23/2024 1:34 AM SOUND INSTALLATION WORKER Monday and only. Morning draw. Naila Guzman NP LAB BLOOD ORDERABLES Final Result Performing Organization Address [facility] [place] [address] * Comprehensive metabolic panel (05/23/2024 12:42 AM SOUND INSTALLATION WORKER) [facility] Sodium 136 135 - 145 mmol/L Potassium, pl 4.3 3.3 - 4.9 mmol/L [facility] Chloride 101 97 - 110 mmol/L [facility] CO2 29 22 - 32 mmol/L [facility] Anion gap 6 2 - 15 mmol/L [facility] BUN 18 6 - 25 mg/dL [facility] Creatinine 0.77 0.60 - 1.10 mg/dL [facility] Glucose 194 70 - 199 mg/dL [facility] Comment: Interpretive Data Fasting glucose >/= 126 mg/dl is diagnostic for diabetes. Fasting is defined as no caloric intake [...] interpretive data was last revised 2022. Calcium 9.5 8.5 - 10.3 mg/dL [facility] Bilirubin, total 0.5 0.1 - 1.2 mg/dL [facility] Protein, pl 7.4 6.5 - 8.5 g/dL [facility] Albumin 3.5 3.5 - 5.0 g/dL [facility] Alk phos 71 40 - 130 Units/L [facility] ALT 19 7 - 45 Units/L [facility] AST 22 10 - 45 Units/L [facility] Blood 05/23/2024 12:4 2 AM SOUND INSTALLATION WORKER 05/23/2024 1:02 AM SOUND INSTALLATION WORKER us Naila Guzman NP LAB BLOOD ORDERABLES Final Result [facility] Department [place] [place] [address] * (ABNORMAL) POCT glucose (05/22/2024 8:56 PM SOUND INSTALLATION WORKER) Glucose, POC 210(H) 70 - 199 mg/dL Blood 05/22/2024 8:56 PM SOUND INSTALLATION WORKER 05/22/2024 8:56 PM SOUND INSTALLATION WORKER us Cem Knapp MD LAB POCT ORDERABLES - DEVIC E Final Result [facility] Department [place] [place] [address] * POCT glucose (05/22/2024 6:09 PM SOUND INSTALLATION WORKER) Glucose, POC 142 70 - 199 mg/dL Blood 05/22/2024 6:09 PM SOUND INSTALLATION WORKER 05/22/2024 6:09 PM SOUND INSTALLATION WORKER Leo Henry MD LAB POCT ORDERABLES - NILESH CE Final Result Performing Organization Address City/[facility] Co de Phone Number [facility] Department [place] [address] * POCT glucose (05/22/2024 4:26 PM SOUND INSTALLATION WORKER) Glucose, POC 133 70 - 199 mg/dL Blood 05/22/2024 4:26 PM SOUND INSTALLATION WORKER 05/22/2024 4:26 PM SOUND INSTALLATION WORKER Leo Henry MD LAB POCT ORDERABLES - NILESH CE Final Result Performing Organization Address [facility] de Phone Number [facility] [place] [address] * CT Abdomen Pelvis W Contrast (05/22/2024 2:32 PM SOUND INSTALLATION WORKER) Anatomical Region Laterality Modality Body N/A Computed Tomogra phy 05/22/2024 4:35 PM SOUND INSTALLATION WORKER Impressions 05/22/2024 5:16 PM SOUND INSTALLATION WORKER No acute findings within the abdomen or pelvis. Dictated by: Yesi Mendes M.D. The radiology attending physician has personally reviewed this study, and had reviewed and/or edited this written report and agrees with it. Electronically signed by: Kelli Palmer M.D. Narrative 05/22/2024 5:16 PM SOUND INSTALLATION WORKER EXAMINATION: Computed tomography of the abdomen and pelvis with intravenous contrast PROVIDED HISTORY: 68-year-old female, left lower quadrant abdominal pain. TECHNIQUE: Transaxial computed tomographic images of the abdomen and pelvis were obtained with intravenous contrast according to the standard protocol after the uneventful administration of 94 mL Opti-Ray 350 intravenous contrast. COMPARISON: Comparison is made to CT Abdomen/Pelvis dated 10/31/2023. FINDINGS: Please see CT PE dated 05/22/2024, 1:28 AM for findings in the chest. Again noted are clustered pulmonary nodules of the left lower lobe of the lung, measuring 5 mm or less (3:44-45). The liver is enlarged. No suspicious hepatic lesion. Postsurgical changes of cholecystectomy. Normal appearance of the spleen and adrenal glands. There is mild fatty atrophy of the pancreas. Normal appearance of the bilateral kidneys, which are symmetrically enhancing. No hydronephrosis. Simple right renal cyst. Bladder is unremarkable. Normal appearance of the stomach. Normal caliber of the imaged small and large bowel, without evidence of obstruction. The appendix is normal. Colonic diverticula without diverticulitis. Surgical clips project over the anterior abdominal-pelvic wall, compatible with ventral hernia repair. Normal uterus. No adnexal mass. Normal caliber of the abdominal aorta. Mild calcified atherosclerosis of the common iliac arteries. There are no suspicious lytic or blastic osseous lesions. Again seen is marked subchondral sclerotic change of the bilateral sacroiliac joints, unchanged from comparison examination. Spinal nerve generator seated within the subcutaneous tissues of left back, with lead overlying mid-thoracic spine. Procedure Note Kelli Palmer MD - 05/22/2024 EXAMINATION: Computed tomography of the abdomen and pelvis with intravenous contrast PROVIDED HISTORY: 68-year-old female, left lower quadrant abdominal pain. TECHNIQUE: Transaxial computed tomographic images of the abdomen and pelvis were obtained with intravenous contrast according to the standard protocol after the uneventful administration of 94 mL Opti-Ray 350 intravenous contrast. COMPARISON: Comparison is made to CT Abdomen/Pelvis dated 10/31/2023. FINDINGS: Please see CT PE dated 05/22/2024, 1:28 AM for findings in the chest. Again noted are clustered pulmonary nodules of the left lower lobe of the lung, measuring 5 mm or less (3:44-45). The liver is enlarged. No suspicious hepatic lesion. Postsurgical changes of cholecystectomy. Normal appearance of the spleen and adrenal glands. There is mild fatty atrophy of the pancreas. Normal appearance of the bilateral kidneys, which are symmetrically enhancing. No hydronephrosis. Simple right renal cyst. Bladder is unremarkable. Normal appearance of the stomach. Normal caliber of the imaged small and large bowel, without evidence of obstruction. The appendix is normal. Colonic diverticula without diverticulitis. Surgical clips project over the anterior abdominal-pelvic wall, compatible with ventral hernia repair. Normal uterus. No adnexal mass. Normal caliber of the abdominal aorta. Mild calcified atherosclerosis of the common iliac arteries. There are no suspicious lytic or blastic osseous lesions. Again seen is marked subchondral sclerotic change of the bilateral sacroiliac joints, unchanged from comparison examination. Spinal nerve generator seated within the subcutaneous tissues of left back, with lead overlying mid-thoracic spine. IMPRESSION: No acute findings within the abdomen or pelvis. Dictated by: Yesi Mendes M.D. The radiology attending physician has personally reviewed this study, and had reviewed and/or edited this written report and agrees with it. Electronically signed by: Kelli Palmer M.D. Leo Henry MD IMG CT PROCEDURES Final Re sult * POCT glucose (05/22/2024 12:58 PM SOUND INSTALLATION WORKER) Glucose, POC 177 70 - 199 mg/dL Blood 05/22/2024 12:5 8 PM SOUND INSTALLATION WORKER 05/22/2024 12:58 PM SOUND INSTALLATION WORKER Leo Henry MD LAB POCT ORDERABLES - NILESH CE Final Result Performing Organization Address City/[facility]/ZIP Co de Phone Number [facility] [place] [place] [address] * (ABNORMAL) POCT glucose (05/22/2024 9:29 AM SOUND INSTALLATION WORKER) Glucose, POC 291(H) 70 - 199 mg/dL Blood 05/22/2024 9:29 AM SOUND INSTALLATION WORKER 05/22/2024 9:29 AM SOUND INSTALLATION WORKER Leo Henry MD LAB POCT ORDERABLES - NILESH CE Final Result Performing Organization Address City/[facility]/ZIP Co de Phone Number [facility] Department [place] [employer] [place] [address] * POCT glucose (05/22/2024 6:54 AM SOUND INSTALLATION WORKER) Glucose, POC 142 70 - 199 mg/dL Blood 05/22/2024 6:54 AM SOUND INSTALLATION WORKER 05/22/2024 6:54 AM SOUND INSTALLATION WORKER us Jimmie Zavala MD LAB POCT ORDERABLES - DEVICE Fin al Result [facility] Department [place] [address] * CT Chest PE (CTA) W Contrast (05/22/2024 1:31 AM SOUND INSTALLATION WORKER) Anatomical Region Laterality Modality Body N/A Computed Tomogra phy 05/22/2024 2:38 AM SOUND INSTALLATION WORKER Impressions 05/22/2024 9:12 AM SOUND INSTALLATION WORKER No pulmonary embolism. Dictated by: Miguel Milligan MD The radiology attending physician has personally reviewed this study, and had reviewed and/or edited this written report and agrees with it. Electronically signed by: Jayson Rockwell M.D. Narrative 05/22/2024 9:12 AM SOUND INSTALLATION WORKER EXAMINATION: CT CHEST PE (CTA) W CONTRAST HISTORY: Past medical history of pulmonary embolism and breast cancer presenting with shortness of breath TECHNIQUE: Computed tomographic images were acquired using a chest angiographic protocol optimized for pulmonary embolism. Contrast enhanced transaxial images were obtained following the intravenous administration of 88 ml of nonionic contrast. Multiplanar reformatted images and three-dimensional images were obtained on the 3-D workstation and sent to the PACS archival system. COMPARISON: CT 01/26/2023 FINDINGS: Retropharyngeal course of bilateral internal carotid arteries. The heart size is normal. No pericardial effusion. Mitral annular calcifications. The main pulmonary artery is normal in caliber. No pulmonary embolism. The apparent filling defects within the left lower lobe subsegmental pulmonary arteries are favored related to flow artifact given their wispy appearance. Thoracic aortic valvular calcifications. No axillary, supraclavicular, mediastinal, or hilar lymphadenopathy. Nondistended esophagus. No pleural effusion. Upper abdomen: Cholecystectomy right renal cyst. Colonic diverticulosis. Central airways are of normal caliber. Mild atelectasis in bilateral lower lobes. Post radiation changes in the anterior left upper lobe. Unchanged left lower lobe pulmonary nodules measuring up to 5 mm compared to prior CT 01/26/2023 may represent sequela prior infection. No pneumothorax. No suspicious osseous lesions. Partially imaged spine are cord stimulator leads. Multilevel degenerative changes throughout the spine. Procedure Note Jayson Rockwell MD - 05/22/2024 EXAMINATION: CT CHEST PE (CTA) W CONTRAST HISTORY: Past medical history of pulmonary embolism and breast cancer presenting with shortness of breath TECHNIQUE: Computed tomographic images were acquired using a chest angiographic protocol optimized for pulmonary embolism. Contrast enhanced transaxial images were obtained following the intravenous administration of 88 ml of nonionic contrast. Multiplanar reformatted images and three-dimensional images were obtained on the 3-D workstation and sent to the PACS archival system. COMPARISON: CT 01/26/2023 FINDINGS: Retropharyngeal course of bilateral internal carotid arteries. The heart size is normal. No pericardial effusion. Mitral annular calcifications. The main pulmonary artery is normal in caliber. No pulmonary embolism. The apparent filling defects within the left lower lobe subsegmental pulmonary arteries are favored related to flow artifact given their wispy appearance. Thoracic aortic valvular calcifications. No axillary, supraclavicular, mediastinal, or hilar lymphadenopathy. Nondistended esophagus. No pleural effusion. Upper abdomen: Cholecystectomy right renal cyst. Colonic diverticulosis. Central airways are of normal caliber. Mild atelectasis in bilateral lower lobes. Post radiation changes in the anterior left upper lobe. Unchanged left lower lobe pulmonary nodules measuring up to 5 mm compared to prior CT 01/26/2023 may represent sequela prior infection. No pneumothorax. No suspicious osseous lesions. Partially imaged spine are cord stimulator leads. Multilevel degenerative changes throughout the spine. IMPRESSION: No pulmonary embolism. Dictated by: Miguel [place] MD The radiology attending physician has personally reviewed this study, and had reviewed and/or edited this written report and agrees with it. Electronically signed by: Jayson Rockwell M.D. Angeline Soler MD IM CT PROCEDURES Deann l Result * D-dimer, quantitative (05/22/2024 12:24 AM SOUND INSTALLATION WORKER) D-Dimer 414 <=499 ng/mL FEU Comment: Interpretive data FDA approved the D-dimer, in conjunction with a low or moderate pretest probability score, to exclude venous thromboembolic events (VTE) (PE and DVT) in outpatients when the D-dimer result is < 500 ng/ml FEU. Evidence supports using an age-adjusted D-dimer cut-off for outpatients older than 50 (age x 10) to improve specificity without sacrificing sensitivity. Example: age 68, VTE cut-off 680 ng/ml FEU. References; Schouten HT et al. Brit Med J. 2013;346:f2492. Pooja et al. Annals Int Med. 2015;163:701-11. Current interpretive data was last revised on 2019. Blood 05/22/2024 12:2 4 AM SOUND INSTALLATION WORKER 05/22/2024 12:42 AM SOUND INSTALLATION WORKER Angeline Soler MD LAB BLOOD ORDERABLES F inal Result Performing Organization Address [facility] Co de Phone Number [facility] Department [place] [address] * Troponin I high-sensitivity 2-hour (05/21/2024 11:09 PM SOUND INSTALLATION WORKER) Trop I hs 5 <=17 ng/L Comment: Interpretive Data For further hscTnI resources including the diagnostic algorithm and an aid in interpretation, copy and paste this link: [email or web address]/[email or web address] Current Interpretive Data last revised 2019. Trop I hs delta See Comment ng/L [facility] Comment:Inappropriate collec tion time to report a delta. Trop I hs pct delta See Comment % [facility] Comment:Inappropriate collec tion time to report a delta. Trop I hs interp See Comment [facility] Comment:Inappropriate collec tion time to report a delta. Blood 05/21/2024 11:0 9 PM SOUND INSTALLATION WORKER 05/21/2024 11:26 PM SOUND INSTALLATION WORKER Cira Castro MD LAB BLOOD ORDERABL ES Final Result Performing Organization Address [facility] Co de Phone Number [facility] Department [place] [address] * (ABNORMAL) Urinalysis reflex to microscopic and culture Urine (05/21/2024 11:09 PM SOUND INSTALLATION WORKER) Color, ur Yellow Yellow Clarity, ur Clear Clear [facility] Specific gravity, ur 1.025 1.003 - 1.030 [facility] pH, urine 6.0 [facility] Comment: Interpretive Data U rine pH is affected by diet, medications, systemic acid-base disturbances, and renal tubular function. pH may affect urinary stone formation. For example, urine pH below 6.0 may help reduce the tendency for calcium phosphate stones and pH greater than 6.0 may reduce the tendency for uric acid stone formation. Source: [facility] Current Interpretive Data was last revised on 2017 Protein, ur ql 1+(A) Negative [facility] Glucose, ur ql Negative Negative [facility] Ketones, ur Negative Negative [facility] Bilirubin, ur Negative Negative [facility] Blood, ur Trace(A) Negative [facility] Urobilinogen, ur <2.0 <2.0 mg/dL [facility] Nitrite, ur Positive(A) Negative [facility] Leukocyte esterase, ur 1+(A) Negative [facility] UA reflex comment Reflex to microscopic UA will be performed. [facility] Urine 05/21/2024 11:0 9 PM SOUND INSTALLATION WORKER 05/21/2024 11:22 PM SOUND INSTALLATION WORKER Angeline Soler MD LAB MICROBIOLOGY - GEN ERAL ORDERABLES Final Result [facility] Department [place] [address] * Respiratory pathogen panel Nasopharyngeal (05/21/2024 11:09 PM SOUND INSTALLATION WORKER) Pathologist [facility] Influenza A RNA Not Detected Not Detected Influenza B RNA Not Detected Not Detected [facility] RSV RNA Not Detected Not Detected [facility] COVID-19 RNA Not Detected Not Detected [facility] Coronavirus 229E RNA Not Detected Not Detected [facility] Coronavirus HKU1 RNA Not Detected Not Detected [facility] Coronavirus NL63 RNA Not Detected Not Detected [facility] Coronavirus OC43 RNA Not Detected Not Detected [facility] Adenovirus DNA Not Detected Not Detected [facility] Metapneumovirus RNA Not Detected Not Detected [facility] Rhinovirus/Enterov irus RNA Not Detected Not Detected [facility] Parainfluenza 1 RNA Not Detected Not Detected [facility] Parainfluenza 2 RNA Not Detected Not Detected [facility] Parainfluenza 3 RNA Not Detected Not Detected [facility] Parainfluenza 4 RNA Not Detected Not Detected [facility] B. pertussis DNA Not Detected Not Detected [facility] B. parapertussis DNA Not Detected Not Detected [facility] C. pneumoniae DNA Not Detected Not Detected [facility] M. pneumoniae DNA Not Detected Not Detected [facility] Nasopharyngeal 05/21/2024 11 :09 PM SOUND INSTALLATION WORKER 05/22/2024 4:48 AM SOUND INSTALLATION WORKER Narrative [facility] - 05/22/2024 5:55 AM SOUND INSTALLATION WORKER Is the Patient experiencing symptoms consistent with COVID?->No Surveillance testing for transplant patient?->No Interpretive Data The [employer] Film[employer] Respiratory Panel (RP2.1) assay is a multiplexed real-time PCR based nucleic acid test capable of simultaneous qualitative detection and identification of multiple respiratory viral and bacterial nucleic acids, including SARS Coronavirus 2 (the causative agent of COVID-19). The following bacteria, viruses and virus subtypes can be identified using the FilmArray RP2.1 assay: Bordetella pertussis, Bordetella parapertussis, Chlamydia pneumoniae, Mycoplasma pneumoniae, Adenovirus, SARS Coronavirus 2, seasonal coronaviruses (Coronavirus HKU1, Coronavirus NL63, Coronavirus 229E, and Coronavirus OC43), Influenza A, Influenza A subtype H1, Influenza A subtype H3, Influenza A subtype 2009 H1, Influenza B, Metapneumovirus, Parainfluenza 1, Parainfluenza 2, Parainfluenza 3, Parainfluenza 4, RSV, Rhinovirus/Enterovirus. Due to the genetic similarity between human Rhinovirus and Enterovirus, the FilmArray RP2.1 assay cannot reliably differentiate them. Coronavirus OC43 may cross-react with some isolates of Coronavirus HKU1. A dual positive result may be due to cross-reactivity or may indicate a co- infection. The detection and identification of specific viral and bacterial nucleic acids from individuals exhibiting signs and symptoms of a respiratory infection aids in the diagnosis of respiratory infection if used in conjunction with other clinical and epidemiological information. The results of this test should not be used as the sole basis for diagnosis, treatment, or other management decisions. Negative results in the setting of a respiratory illness may be due to infection with pathogens that are not detected by this test. Positive results do not rule out infection/co-infection with other organisms. The agent(s) detected by the FilmArray RP2.1 may not be the definite cause of disease. Additional testing (lab, imaging, etc.) may be necessary when evaluating a patient with possible respiratory tract infection. The FilmArray RP2.1 assay has FDA clearance for testing of DIRECT[employer]IM[employer]IC[employer] swabs. The performance of additional specimen types has been assessed by the performing laboratory. The performance characteristics of this assay have been determined by [facility]. Current interpretive data was last revised on 22. Angeline Soler MD LAB MICROBIOLOGY - GEN ERAL ORDERABLES Final Result [facility] Department [place] [address] * (ABNORMAL) Urinalysis, microscopic only (05/21/2024 11:09 PM SOUND INSTALLATION WORKER) WBC, ur 11-20(A) 0 - 5 /HPF RBC, ur 3-5(A) 0 - 2 /HPF [facility] Epithelial cells, squamous, ur 1-5 0 - 5 /HPF [facility] Bacteria, ur 3+(A) [facility] Yeast, ur Trace(A) [facility] Mucous, ur Present(A) [facility] Culture Reflex Comment Reflex to urine culture will be performed. [facility] Urine 05/21/2024 11:0 9 PM SOUND INSTALLATION WORKER 05/21/2024 11:21 PM SOUND INSTALLATION WORKER Angeline Soler MD LAB URINE ORDERABLES F inal Result [facility] Department [place] [address] * (ABNORMAL) Urine culture Urine (05/21/2024 11:09 PM SOUND INSTALLATION WORKER) Report Amended Report - Complete: Greater than or equal to 100,000 colonies/mL of Escherichia coli Plus growth of clinically insignificant bacterial yesenia. (.) Organism ESCHERICHIA COLI [facility] Organism PLUS GROWTH OF CLINICALLY INSIGNIFICANT YESENIA. [facility] Urine 05/21/2024 11:0 9 PM SOUND INSTALLATION WORKER 05/22/2024 2:40 AM SOUND INSTALLATION WORKER Narrative [facility] - 05/25/2024 10:36 AM SOUND INSTALLATION WORKER Urine culture reflexed based upon urinalysis results. Testing performed by [facility] ([phone]) Organism Antibiotic Method Susceptibility Escherichia coli Ampicillin [...] INTERPRETATION Susceptible Escherichia coli Cefdinir INTERPRETATION Susceptible Escherichia coli Amikacin INTERPRETATION Susceptible Escherichia coli Aztreonam INTERPRETATION Susceptible Escherichia coli Imipenem INTERPRETATION Susceptible Escherichia coli Ertapenem INTERPRETATION Susceptible Escherichia coli Minocycline INTERPRETATION Susceptible Escherichia coli Tobramycin INTERPRETATION Susceptible Escherichia coli Levofloxacin INTERPRETATION Resistant Escherichia coli Doxycycline INTERPRETATION Resistant Escherichia coli Ampicillin with Sulbactam INTERPRETAT ION Resistant Escherichia coli Fosfomycin INTERPRETATION Susceptible us Angeline Soler MD LAB MICROBIOLOGY - GEN ERAL ORDERABLES Edited Result - Final [facility] Department [place] [address] * POCT glucose (05/21/2024 8:55 PM SOUND INSTALLATION WORKER) Glucose, POC 139 70 - 199 mg/dL Blood 05/21/2024 8:55 PM SOUND INSTALLATION WORKER 05/21/2024 8:55 PM SOUND INSTALLATION WORKER Notinfile Unknown LAB POCT ORDERABLES - DEVICE F inal Result Performing Organization Address [facility] de Phone Number [facility] [place] [address] * Troponin I high-sensitivity 4-hour (05/21/2024 7:26 PM SOUND INSTALLATION WORKER) Trop I hs 4 <=17 ng/L Comment: Interpretive Data For further hscTnI resources including the diagnostic algorithm and an aid in interpretation, copy and paste this link: [email or web address] [email or web address]/show/hsTrop-1 Current Interpretive Data last revised 2019. Trop I hs delta -1 ng/L [facility] Trop I hs interp Insignificant [facility] Blood 05/21/2024 7:26 PM SOUND INSTALLATION WORKER 05/21/2024 7:37 PM SOUND INSTALLATION WORKER Cira Castro MD LAB BLOOD ORDERABL ES Final Result Performing Organization Address [facility] de Phone Number [facility] [place] [employer] [place] [address] * Troponin I high-sensitivity series (baseline, 2hr, 4hr, 6hr) (05/21/2024 4:20 PM SOUND INSTALLATION WORKER) Trop I hs 5 <=17 ng/L Comment: Interpretive Data For further hscTnI resources including the diagnostic algorithm and an aid in interpretation, copy and paste this link: [email or web address].Modular [email or web address]/show/hsTrop-1 Current Interpretive Data last revised 2019. Blood 05/21/2024 4:20 PM SOUND INSTALLATION WORKER 05/21/2024 4:50 PM SOUND INSTALLATION WORKER us Jimmie Zavala MD LAB BLOOD ORDERABLES Final Resul t Performing Organization Address City/[facility]/ZIP Co de Phone Number [facility] Department [place] [address] * eGFR (05/21/2024 4:20 PM SOUND INSTALLATION WORKER) eGFR >90 >=60 mL/min/1. 73 m2 Comment: Interpretive Data Reference Interval Normal >/= 90 mL/min/1.73m2 Mildly decreased* 60 - 89 mL/min/1.73m2 Mildly to moderately decreased 45 - 59 mL/min/1.73m2 Moderately to severely decreased 30 - 44 mL/min/1.73m2 Severely decreased 15 - 29 mL/min/1.73m2 Kidney Failure < 15 mL/min/1.73m2 *Relative to young adult level Estimated glomerular [...] interpretive data was last reviewed 2021. Blood 05/21/2024 4:20 PM SOUND INSTALLATION WORKER 05/21/2024 4:50 PM SOUND INSTALLATION WORKER us Jimmie Zavala MD LAB BLOOD ORDERABLES Final Resul t Performing Organization Address City/[facility]/ZIP Co de Phone Number [facility] [place] [address] * (ABNORMAL) Differential, auto (05/21/2024 4:20 PM SOUND INSTALLATION WORKER) Neutrophil abs 8.0(H) 1.5 - 6.5 K/cumm Imm gran abs 0.0 0.0 - 0.1 K/cumm [facility] Lymphocyte abs 2.4 0.8 - 3.3 K/cumm [facility] Monocyte abs 0.8 0.2 - 0.8 K/cumm [facility] Eosinophil abs 0.2 0.0 - 0.5 K/cumm [facility] Basophil abs 0.0 0.0 - 0.1 K/cumm [facility] Neutrophil pct 69.4 % [facility] Comment: Interpretive Data Percent cell count reference ranges are not reported, since discordance with absolute values may lead to misinterpretation of CBC data. Current Interpretive Data was last revised on 2017. Imm gran pct 0.4 % [facility] Comment: Interpretive Data Percent cell count reference ranges are not reported, since discordance with absolute values may lead to misinterpretation of CBC data. Current Interpretive Data was last revised on 2017. Lymphocyte pct 21.4 % [facility] Comment: Interpretive Data Percent cell count reference ranges are not reported, since discordance with absolute values may lead to misinterpretation of CBC data. Current Interpretive Data was last revised on 2017. Monocyte pct 6.7 % [facility] Comment: Interpretive Data Percent cell count reference ranges are not reported, since discordance with absolute values may lead to misinterpretation of CBC data. Current Interpretive Data was last revised on 2017. Eosinophil pct 1.8 % [facility] Comment: Interpretive Data Percent cell count reference ranges are not reported, since discordance with absolute values may lead to misinterpretation of CBC data. Current Interpretive Data was last revised on 2017. Basophil pct 0.3 % [facility] Comment: Interpretive Data Percent cell count reference ranges are not reported, since discordance with absolute values may lead to misinterpretation of CBC data. Current Interpretive Data was last revised on 2017. Blood 05/21/2024 4:20 PM SOUND INSTALLATION WORKER 05/21/2024 4:50 PM SOUND INSTALLATION WORKER us Jimmie Zavala MD LAB BLOOD ORDERABLES Final Resul t [facility] Department [place] [address] * (ABNORMAL) CBC with auto differential (05/21/2024 4:20 PM SOUND INSTALLATION WORKER) WBC 11.4(H) 3.8 - 9.9 K/cumm Hgb 14.0 11.9 - 15.5 g/dL [facility] Hct 43.6 35.6 - 45.5 % [facility] Plt 286 150 - 400 K/cumm [facility] MPV 9.9 9.1 - 12.3 fL [facility] RBC 4.83 3.90 - 5.20 M/cumm [facility] MCV 90.3 81.3 - 96.4 fL [facility] MCH 29.0 27.1 - 33.3 pg [facility] MCHC 32.1(L) 32.3 - 35.7 g/dL [facility] RDW CV 13.6 11.1 - 14.9 % [facility] RDW SD 45.6 35.7 - 48.1 fL [facility] NRBC abs 0.00 0.00 - 0.01 K/cumm [facility] Blood Venous blood specimen / Unknown 05/21/2024 4:20 PM SOUND INSTALLATION WORKER 05/21/2024 4:50 PM SOUND INSTALLATION WORKER us Jimmie Zavala MD LAB BLOOD ORDERABLES Final Resul t [facility] Department [place] [address] * (ABNORMAL) Hemoglobin A1c (05/21/2024 4:20 PM SOUND INSTALLATION WORKER) Hgb A1C 8.7(H) 4.0 - 5.6 % Estimated Average Glucose 203 mg/dL [facility] Comment: The ADA recommends reporting an estimated Average Glucose (eAG) with all Hemoglobin A1c results using the equation derived from a study of 507 normal and diabetic adults. Minority populations were underrepresented and children were not included. (Diabetes Care 2020; 43(S1): S66-S76). The eAG is not equivalent to a fasting glucose. Blood 05/21/2024 4:20 PM SOUND INSTALLATION WORKER 05/21/2024 4:55 PM SOUND INSTALLATION WORKER us Leo Henry MD LAB BLOOD ORDERABLES Final Result [facility] Department [place] [address] * (ABNORMAL) Lipid panel (05/21/2024 4:20 PM SOUND INSTALLATION WORKER) Cholesterol 205(H) 30 - 199 mg/dL Comment: Interpretive Data Ages < or = 19 years Acceptable: <170 mg/dL Borderline high: 170-199 mg/dL High: >or= 200 mg/dL Ages > or = 20 years Desirable: <200 mg/dL Borderline high: 200-239 mg/dL High: >or= 240 mg/dL Literature References: 1. Expert Panel on Integrated Guidelines for Cardiovascular Health and Risk Reduction in Children and Adolescents. Pediatrics 2011;128:S213 2. NCEP Expert Panel. Circulation 2004;110:227 Current Interpretive Data was last revised on 2017. Triglycerides 92 <=149 mg/dL [facility] Comment: Interpretive Data Ages < or = 9 years Acceptable: <75 mg/dL Borderline high: 75-99 mg/dL High: >or= 100 mg/dL Ages 10 to 20 years Acceptable: <90 mg/dL Borderline high: 90-129 mg/dL High: >or= 130 mg/dL Ages > or = 20 years Desirable: <150 mg/dL Borderline high: 150-199 mg/dL High: 200-499 mg/dL Very high: >or= 499 mg/dL Literature References: 1. Expert Panel on Integrated Guidelines for Cardiovascular Health and Risk Reduction in Children and Adolescents. Pediatrics 2011;128:S213 2. NCEP Expert Panel. Circulation 2004;110:227 Current Interpretive Data was last revised on 2017. HDL 55 >=40 mg/dL [facility] Comment: Interpretive Data Ages < or = [...] was last revised on 2017. LDL, calculated 134(H) <=129 mg/dL [facility] Comment: Interpretive Data Ages < or = 19 years Acceptable: <110 mg/dL Borderline high: 110-129 mg/dL High: >or= 130 mg/dL Ages > or = 20 years Optimal: <100 mg/dL Near optimal: 100-129 mg/dL Borderline high: 130-159 mg/dL High: >160 mg/dL Calculated using the Kedar LDL-C estimating equation. This equation was implemented on 2023. Prior to this date LDL-C was estimated using the Friedewald equation. Literature References: 1. Expert Panel on Integrated Guidelines for Cardiovascular Health and Risk Reduction in Children and Adolescents. Pediatrics 2011;128:S213 2. NCEP Expert Panel. Circulation 2004;110:227 3. Kedar Montero et al. NANO Cardiol. 2019August 22;5(5):540-548. doi: [email or web address] Current Interpretive Data was last revised on 2023. Non-HDL Cholesterol 150 mg/dL [facility] Comment: Interpretive Data Ages < or = 19 years Acceptable: <120 mg/dL Borderline high: 120-144 mg/dL High: >145 mg/dL Ages > or = 20 years When triglycerides are >200 mg/dL, Non-HDL cholesterol is a secondary target of therapy with treatment goals that are 30 mg/dL greater than the LDL cholesterol target. Literature References: 1. Expert Panel on Integrated Guidelines for Cardiovascular Health and Risk Reduction in Children and Adolescents. Pediatrics 2011;128:S213 2. NCEP Expert Panel. Circulation 2004;110:227 Current Interpretive Data was last revised on 2017. Chol/HDL ratio 4 [facility] Blood 05/21/2024 4:20 PM SOUND INSTALLATION WORKER 05/21/2024 4:50 PM SOUND INSTALLATION WORKER Narrative [facility] - 05/22/2024 4:17 PM SOUND INSTALLATION WORKER Reflex us Leo Henry MD LAB BLOOD ORDERABLES Final Result [facility] Department [place] [address] * Comprehensive metabolic panel (05/21/2024 4:20 PM SOUND INSTALLATION WORKER) Sodium 140 135 - 145 mmol/L Potassium, pl 4.3 3.3 - 4.9 mmol/L [facility] Chloride 100 97 - 110 mmol/L [facility] CO2 29 22 - 32 mmol/L [facility] Anion gap 11 2 - 15 mmol/L [facility] BUN 14 6 - 25 mg/dL [facility] Creatinine 0.63 0.60 - 1.10 mg/dL [facility] Glucose 119 70 - 199 mg/dL [facility] Comment: Interpretive Data Fasting glucose >/= 126 mg/dl is diagnostic for diabetes. Fasting is defined as no caloric intake [...] interpretive data was last revised 2022. Calcium 10.0 8.5 - 10.3 mg/dL [facility] Bilirubin, total 0.7 0.1 - 1.2 mg/dL [facility] Protein, pl 8.5 6.5 - 8.5 g/dL [facility] Albumin 3.9 3.5 - 5.0 g/dL [facility] Alk phos 83 40 - 130 Units/L [facility] ALT 23 7 - 45 Units/L [facility] AST 22 10 - 45 Units/L [facility] Blood 05/21/2024 4:20 PM SOUND INSTALLATION WORKER 05/21/2024 4:50 PM SOUND INSTALLATION WORKER us Jimmie Zavala MD LAB BLOOD ORDERABLES Final Resul t [facility] Department [place] [address] * XR Chest Pa Lateral 2 Views (05/21/2024 2:23 PM SOUND INSTALLATION WORKER) Anatomical Region Laterality Modality Body, Chest N/A Computed Radiogr aphy 05/21/2024 2:28 PM SOUND INSTALLATION WORKER Impressions 05/21/2024 2:36 PM SOUND INSTALLATION WORKER The current study is compared with the prior radiograph dated 05/14/2024. Spinal nerve stimulator projects over the mid thoracic spine. Cholecystectomy clips. Mild bibasilar atelectasis. No consolidation, pleural effusion, or pneumothorax. Cardiomediastinal silhouette is normal. Dictated by: Yesi Mendes M.D. The radiology attending physician has personally reviewed this study, and had reviewed and/or edited this written report and agrees with it. Electronically signed by: Jaime Neves M.D. Narrative 05/21/2024 2:36 PM SOUND INSTALLATION WORKER EXAMINATION: 2 view chest radiograph Procedure Note Jaime Neves MD - 05/21/2024 EXAMINATION: 2 view chest radiograph IMPRESSION: The current study is compared with the prior radiograph dated 05/14/2024. Spinal nerve stimulator projects over the mid thoracic spine. Cholecystectomy clips. Mild bibasilar atelectasis. No consolidation, pleural effusion, or pneumothorax. Cardiomediastinal silhouette is normal. Dictated by: Yesi Mendes M.D. The radiology attending physician has personally reviewed this study, and had reviewed and/or edited this written report and agrees with it. Electronically signed by: Jaime Neves M.D. us Jimmie Zavala MD IMG XR PROCEDURES Final Result * POCT glucose (05/21/2024 1:39 PM SOUND INSTALLATION WORKER) Glucose, POC 113 70 - 199 mg/dL Blood 05/21/2024 1:39 PM SOUND INSTALLATION WORKER 05/21/2024 1:39 PM SOUND INSTALLATION WORKER us Notinfile Unknown LAB POCT ORDERABLES - DEVICE F inal Result [facility] Department [place] [address] * ECG 12-LEAD (05/21/2024 1:36 PM SOUND INSTALLATION WORKER) Narrative [facility] - 05/21/2024 1:36 PM SOUND INSTALLATION WORKER Gil Mcgrath MD 05/21/2024 1:37 PM ECG 12 lead Date/Time: 05/21/2024 1:36 PM Performed by: Gil Mcgrath MD Authorized by: Vamshi Díaz MD Rate: ECG rate: 78 ECG rate assessment: normal Rhythm: Rhythm: sinus rhythm Ectopy: Ectopy: none QRS: QRS axis: Normal QRS intervals: Normal Conduction: Conduction: normal ST segments: ST segments: Non-specific T waves: T waves: non-specific Previous ECG: Previous ECG: Compared to current Date of previous EC12/28/2023 Similarity: No change Interpretation: Interpretation: No significant change Recommended Follow-up: Recommended follow up: further workup in the ED Procedure Note Gil Mcgrath MD - 05/21/2024 1:36 PM CST Procedure ECG 12 lead Date/Time: 05/21/2024 1:36 PM Performed by: Gil Mcgrath MD Authorized by: Vamshi Díaz MD Rate: ECG rate: 78 ECG rate assessment: normal Rhythm: Rhythm: sinus rhythm Ectopy: Ectopy: none QRS: QRS axis: Normal QRS intervals: Normal Conduction: Conduction: normal ST segments: ST segments: Non-specific T waves: T waves: non-specific Previous ECG: Previous ECG: Compared to current Date of previous EC12/28/2023 Similarity: No change Interpretation: Interpretation: No significant change Recommended Follow-up: Recommended follow up: further workup in the ED Gil Mcgrath MD 05/21/24 [id number] Jimmie Zavala MD ECG ORDERABLES Final Result [facility] * Axillary Breast Left (05/21/2024 12:13 PM SOUND INSTALLATION WORKER) Anatomical Region Laterality Modality Upper Extremities Left Ultrasound 05/21/2024 12:2 3 PM SOUND INSTALLATION WORKER Impressions 05/21/2024 12:23 PM SOUND INSTALLATION WORKER 1. Limited ultrasound due to extensive edema in the left axilla. Given this limitation, no suspicious cystic or solid lesion is identified. However, this area may be better evaluated by CT if there is concern for recurrence. OVERALL FINAL ASSESSMENT: BI-RADS Category 2: Benign. RECOMMENDATION: Continued clinical follow-up is recommended. Please note that ultrasound of the left axilla was limited due to extensive edema in the left axilla and poor penetration with the ultrasound. This area may be better evaluated by CT if there is concern for recurrence. Electronically signed by: Alicia Wilcox M.D. Narrative 05/21/2024 12:23 PM SOUND INSTALLATION WORKER EXAMINATION: LEFT AXILLARY ULTRASOUND HISTORY: Patient is a 68-year-old woman with a history of left breast cancer diagnosed in 2014. At that time, patient had bilateral mastectomies. Patient also had a left axillary dissection with 3 of 17 lymph nodes positive. 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 Patient presents with today with left axillary pain, left shoulder pain and wound left upper posterior back pain. COMPARISON: None TECHNIQUE: Directed ultrasound evaluation of the LEFT axilla was performed. ULTRASOUND FINDINGS: Targeted ultrasound of the left axilla demonstrates edema of the soft tissues in the left axillary region. A 3 mm lymph node is identified. No definite mass or suspicious cystic lesion is identified. Of note, ultrasound exam imaging of the left axilla was limited due to the extensive edema. Procedure Note Alicia Wilcox MD - 05/21/2024 EXAMINATION: LEFT AXILLARY ULTRASOUND HISTORY: Patient is a 68-year-old woman with a history of left breast cancer diagnosed in 2014. At that time, patient had bilateral mastectomies. Patient also had a left axillary dissection with 3 of 17 lymph nodes positive. 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 Patient presents with today with left axillary pain, left shoulder pain and wound left upper posterior back pain. COMPARISON: None TECHNIQUE: Directed ultrasound evaluation of the LEFT axilla was performed. ULTRASOUND FINDINGS: Targeted ultrasound of the left axilla demonstrates edema of the soft tissues in the left axillary region. A 3 mm lymph node is identified. No definite mass or suspicious cystic lesion is identified. Of note, ultrasound exam imaging of the left axilla was limited due to the extensive edema. IMPRESSION: 1. Limited ultrasound due to extensive edema in the left axilla. Given this limitation, no suspicious cystic or solid lesion is identified. However, this area may be better evaluated by CT if there is concern for recurrence. OVERALL FINAL ASSESSMENT: BI-RADS Category 2: Benign. RECOMMENDATION: Continued clinical follow-up is recommended. Please note that ultrasound of the left axilla was limited due to extensive edema in the left axilla and poor penetration with the ultrasound. This area may be better evaluated by CT if there is concern for recurrence. Electronically signed by: Alicia Wilcox M.D. Khris Arthur MD IMG US PROCEDURES Fi nal Result * (ABNORMAL) Urinalysis reflex to microscopic and culture Urine, clean voided (05/14/2024 4:50 PM SOUND INSTALLATION WORKER) Color, ur Straw Yellow Clarity, ur Clear Clear [facility] Specific gravity, ur 1.025 1.003 - 1.030 [facility] pH, urine 5.5 [facility] Comment: Interpretive Data U rine pH is affected by diet, medications, systemic acid-base disturbances, and renal tubular function. pH may affect urinary stone formation. For example, urine pH below 6.0 may help reduce the tendency for calcium phosphate stones and pH greater than 6.0 may reduce the tendency for uric acid stone formation. Source: [place] [facility] Current Interpretive Data was last revised on 2017 Protein, ur ql Trace Negative [facility] Glucose, ur ql Negative Negative [facility] Ketones, ur Negative Negative [facility] Bilirubin, ur Negative Negative [facility] Blood, ur Trace(A) Negative [facility] Urobilinogen, ur <2.0 <2.0 mg/dL [facility] Nitrite, ur Negative Negative [facility] Leukocyte esterase, ur Negative Negative [facility] UA reflex comment Reflex to microscopic UA will be performed. [facility] Urine, clean voided 05/14/2024 4:50 PM SOUND INSTALLATION WORKER 05/14/2024 7:18 PM SOUND INSTALLATION WORKER us Foluso Rayna Ademuyiwa MD LAB MICROBIOLOGY - G ENERAL ORDERABLES Final Result Performing Organization Address [facility] Co de Phone Number [facility] [place] [address] * (ABNORMAL) Urinalysis, microscopic only (05/14/2024 4:50 PM SOUND INSTALLATION WORKER) WBC, ur 0-5 0 - 5 /HPF RBC, ur 0-2 0 - 2 /HPF [facility] Epithelial cells, squamous, ur 1-5 0 - 5 /HPF [facility] Bacteria, ur Trace(A) [facility] Mucous, ur Present(A) [facility] Culture Reflex Comment Reflex conditions for urine culture (WBC >10) not met. [facility] Urine, clean voided 05/14/2024 4:50 PM SOUND INSTALLATION WORKER 05/14/2024 7:18 PM SOUND INSTALLATION WORKER Khris Arthur MD LAB URINE ORDERABLES Final Result Performing Organization Address [facility] Co de Phone Number [facility] [place] [address] * XR Ribs Left 2 Views (05/14/2024 4:44 PM SOUND INSTALLATION WORKER) Anatomical Region Laterality Modality Rib, Chest Left Digital Radiogra phy 05/14/2024 4:54 PM SOUND INSTALLATION WORKER Impressions 05/14/2024 4:54 PM SOUND INSTALLATION WORKER 1. No displaced left rib fracture. Electronically signed by: Santiago Gan D.O. Narrative 05/14/2024 4:54 PM SOUND INSTALLATION WORKER EXAMINATION: XR RIBS LEFT 2 VIEWS HISTORY: [...] the left pelvis. Cholecystectomy clips. Procedure Note Elvia Santiago Alvarez, DO - 05/14/2024 EXAMINATION: XR RIBS LEFT [...] IMG XR PROCEDURES Fi nal Result * Dexa Axial Skeleton Bone Density 1 or 2 Site (08/02/2022 10:53 AM CDT) Anatomical Region Laterality Modality Body N/A Radiographic Lizeth ging Narrative 08/02/2022 3:34 PM CDT Patient Name: Mohsen Marques Date of : 1955 Date of scan: 08/02/2022 Bone mineral density was performed on a HoloSkem[employer] Discovery Densitometer. Based on machine cross-calibration and precision studies [...] mineral density scan were prepared by Yesenia Tineo(R) CBDHeydi who is accredited by the International Society of Clinical Densitometry. The overall patient assessment and scan interpretation were performed by Kaylie Castro MD who is certified by the International Society of Clinical Densitometry. [id number] Khris Arthur MD IMG DXA PROCEDURES F [...] agrees with it. ACC# Date Time Exam [id number] Aug 19, 2016 14:27:00 [facility] [id number] Diag Mamm, inc CAD, unilat L Technologist(s): Carla Harris; ; [id number] Aug 19, 2016 15:39:00 [facility] 86362 Breast US unilateral, ltd L ACC# Date Time Exam [id number] Aug 19, 2016 14:27:00 C 96418 Diag Mamm, inc CAD, unilat L Technologist(s): Carla Harris; ; [id number] Aug 19, 2016 15:39:00 C 01590 Breast US unilateral, ltd L EXAMINATION: LEFT [...] SARABIA M.D. on Aug 19 2016 4:20P [id number] Procedure Note Miscellaneous, Not In File / Provider, MD Tyler - 09/17/2016 ANTHONY SARABIA M.D. JUDY RINCON M.D. FINAL REPORT The radiology attending physician has personally reviewed this study, and has reviewed and/or edited this written report and agrees with it. ACC# Date Time Exam [id number] Aug 19, 2016 14:27:00 [facility] 33162 Diag Mamm, inc CAD, unilat L Technologist(s): Carla Harris; ; [id number] Aug 19, 2016 15:39:00 C 65333 Breast US unilateral, ltd L ACC# Date Time Exam [id number] Aug 19, 2016 14:27:00 C 68015 Diag Mamm, inc CAD, unilat L Technologist(s): Carla Harris; ; [id number] Aug 19, 2016 15:39:00 C 72776 Breast US unilateral, ltd L EXAMINATION: LEFT [...] SARABIA M.D. on Aug 19 2016 4:20P [id number] us Not In File Miscellaneous IMG MAMMO PROCEDURES F inal Result from Last 3 Months or Most Recently Relevant to Health Maintenance Insurance [facility] [place] [address] MEDICARE SOLUTIONS MEDICARE [place] [address] Advance Directives For more information, please contact: [phone] Documents on File Type Date Recorded Patient Waiver Analyst Expl anation ADVANCE DIRECTIVE 12/23/2021 2:49 PM Power of Film Examiner-Medical ADVANCE DIRECTIVE 12/23/2021 2:49 PM Living Will * Full Code (Latest Code Status on File) Date Activated Date Inactivated Comments 05/22/2024 7:16 PM 05/26/2024 11:02 PM * Full Code Date Activated Date Inactivated Comments 08/14/2023 6:40 PM 08/18/2023 5:22 PM * Full Code Date Activated Date Inactivated Comments 08/14/2023 5:58 PM 08/14/2023 5:58 PM * Full Code Date Activated Date Inactivated Comments 02/09/2022 7:34 PM 02/17/2022 3:45 PM * Full Code Date Activated Date Inactivated Comments 12/23/2021 7:33 AM 12/26/2021 7:20 PM Healthcare Agents on File Name Relationship Healthcare Agent [facility] Communication Yunior Marques Daughter Health Care Agent Jimmie Marques Spouse First Alternate Health Care Agent Care Teams Shade Cutter Relationship Specialty Start Date End Date Justen Gale MD [address] [facility] [address] [place] [address] PCP - General 10/09/17 Liu Jerez MD Consulting Physician Gastroenterology 07/28/17 [place] [address] [facility] [address] [place] [address] Consulting Physician Pulmonary Disease 08/03/17 Khris Arthur MD [address] [facility] [address] [place] [address] Medical Oncologist/Telehealth Nurse Medical Oncology 10/23/17 [place] [address] [facility] [address] [place] [address] Surgeon Orthopedic Surgery 10/23/17 [place] [address] [facility] [address] [place] [address] Consulting Physician Pain Management 10/23/17 [place] [address] [facility] [address] [place] [address] Referring Physician General Surgery 01/26/18 [place] [address] [facility] [address] [place] [address] Consulting Physician Neurology 01/26/18
--- OUTSIDE RECORDS SUMMARY | 2024-07-11 00:52 | XMS_ITS | Clinical Summary ---
Author Organization [facility] Address [facility] [place] [address] Care Team Providers Care Shoe Stitcher Odd Name Role Phone Meena Bansal MD Unavailable Justen Gale MD Primary Care Provider [phone] Allergies Active Allergy Reactions Criticality Noted Date [...] or Shortness of breath. 8 g 04/19/20 Active naloxone 4 MG/0.1ML nasal spray 1 [...] reflux disease 09/05/2020 Malignant tumor of breast ([facility]/HCC [facility]) 08/22 Knee pain 09/05/2020 Other chronic pain [...] of 50.0 to 59.9 in adult 11/15/2018 Abdominal pain 09/09/2018 Diverticulosis 08/30/2018 Pain [...] left inferior nodule. ACS (acute coronary syndrome) (CMS/HCC HHS/HCC) 03/18/2018 Assessment & Plan (03/18/2018 2:55 AM SHAREPOINT TRAINER): Acute, patient reported as epigastric pain however may be atypical presentation. Troponins negative x2. Also in differential is GERD, PUD - Admit to observation -Follow-up troponins -Monitor vitals -N.p.o. at midnight - Stress echo in a.m. - Consider cardiology consult based on results of stress test -Begin Protonix Epigastric pain 03/18/2018 Assessment & Plan (03/18/2018 5:39 AM SHAREPOINT TRAINER): Acute, non radiating, worsens with lying down, [...] Speech impairment 01/30/2018 CVA (cerebral vascular accident) ([facility] HHS/ C) 01/24/2018 Neck pain on right side 12/01/2017 Anxiety and depression 11/12/2017 Chronic anticoagulation 11/09/2017 Constipation 11/09/2017 Uncontrolled type 2 diabetes mellitus with hyperglycemia, with long-term current use of insulin ([facility]) 11/06/2017 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 -continue exemestane Acute deep vein thrombosis ( DVT) of proximal vein of right lower extremity ([facility]) 10/17/2017 Dysuria 10/17/2017 Hyperthyroidism 10/17/2017 Cancer of overlapping sites of left female breast ([facility]) 10/13/2017 Syncope 09/29/2017 High blood pressure 08/22/2017 Overview (09/05/2020): Last Assessment & Plan: On lisinopril Last Assessment & Plan: On lisinopril Assessment & Plan (08/30/2018 9:57 PM CDT): Chronic. Controlled. -continue home medications Assessment & Plan (03/18/2018 2:51 AM SHAREPOINT TRAINER): Chronic, BPs currently 127/78 - To new home meds Morbid obesity with BMI of 50.0-59.9, adult 04/2017 Sepsis ([facility]) 08/22/2017 Type 2 diabetes mellitus ([facility]) 08/22 Overview (09/05/2020): Last Assessment & Plan: Hold janument. Start on SSI and accucheks Assessment & Plan (08/30/2018 10:01 PM CDT): Chronic. Controlled. -continue home insulin regimen of lantus 50 units q am -lispro 20 units with breakfast and lunch. 22 units with dinner. Assessment & Plan (03/18/2018 2:53 AM SHAREPOINT TRAINER): Chronic, patient reports medical compliance with 50 units of Lantus daily and 15 units of Humalog before meals. No recent HbA1c - Monitor POC glucose -Bison home regimen - Consider sliding scale insulin -Follow-up HbA1c Bronchitis 08/20/2017 LUL (obstructive sleep apnea) 08/01/2017 Assessment & Plan (03/18/2018 2:54 AM SHAREPOINT TRAINER): Chronic, on CPAP at home - Continue home CPAP History of DVT (deep vein thrombosis) 08/01/2017 Assessment & Plan (03/18/2018 2:54 AM SHAREPOINT TRAINER): Chronic - Continue home Xarelto Chest pressure 08/01/2017 Diet-controlled diabetes mellitus ([facility] HHS/H CC) 08/01/2017 History of pulmonary embolism 08/01/2017 Hyponatremia 08/01/2017 Positive blood culture 08/01/2017 Acute pharyngitis 07/27/2017 Generalized weakness 07/27/2017 Nausea and vomiting 07/26/2017 Overview (09/05/2020): Overview: Overview: Added automatically from request for surgery [id number] Overview: Added automatically from request for surgery [id number] Added automatically from request for surgery [id number] Neuropathy 07/05/2017 History of breast cancer 02/06/2017 Pulmonary embolism ([facility]) 08/09/2016 Overview (09/05/2020): Last Assessment & Plan: [...] syndrome Assessment & Plan (03/18/2018 2:54 AM SHAREPOINT TRAINER): Chronic -Continue home ropinirole Pain of lower [...] = 0.6 oz pur e alcohol) [facility] Utilities Answer Date Recorded In the past 12 months has [employer] gas, oil, or water [employer] threatened to shut off services in your [...] were you homeless or living in a jail (including now)? No 10/13/2023 Comments No Sex and Gender Information Value Date Recorded Sex Assigned at Female 09/06/2020 12:50 AM CDT Legal Sex Female 10:47 AM CDT Gender Identity Female 09/06/2020 12:50 AM CDT Sexual Orientation Straight 03/18/2018 3: 01 AM SHAREPOINT TRAINER Last Filed Vital Signs Vital Sign Reading Time Taken Comments Blood Pressure 123/72 10/14/2023 11:02 AM CDT Pulse 64 10/14/2023 11:02 AM CDT Temperature 36.8 C (98.3 F) 10/13/2023 9:15 PM CDT Respiratory Rate 18 10/14/2023 11:02 AM CDT [...] 09/09/2018 Dexa Scan (General) Completed 08/02/2022, Meningococcal B Vaccine Aged Out No l onger eligible based on patient's age to complete this topic Meningococcal Vaccine Aged Out No princess lencho [...] 8.0(H) <5.7 % 10/14/2023 5:50 AM CDT [facility] Comment: ADA GUIDELINES 2010 5.7 TO 6.4% INCREASED RISK OF DIABETES > OR = 6.5% CONSISTENT WITH DIABETES ESTIMATED AVG GLUCOSE 183 mg/dL 10/14/2023 5:50 AM CDT [facility] 10/14/2023 3:40 AM CDT us Peggy Bland MD LABORATORY Final Result [facility] [address] [place] [address], * LIPID PANEL (10/14/2023 3:40 AM CDT) CHOLESTEROL 164 <200 MG/DL 10/14/2023 4:31 AM CDT [facility] TRIGLYCERIDES 114 <150 MG/DL 10/14/2023 4:31 AM CDT [facility] HDL 46 >40.0 MG/DL 10/14/2023 4:31 AM CDT [facility] LDL (CALCULATED) 95 <100 MG/DL 10/14/19 4:31 AM CDT [facility] NON HDL CHOLESTEROL 118 <130 MG/DL 10/13 4:31 AM CDT [facility] CHOL/HDL RATIO 3.6 0.0 - 4.5 10/14/2023 4:31 AM CDT [facility] VLDL CALCULATION 23 5 - 55 MG/DL 10/14/2023 4:31 AM T [facility] LIPID INTERPRETATION 10/14/2023 4:31 AM T [facility] Comment: NIH CONCENSUS REPORT RECOMMENDATIONS: ADULT CHILD LOW RISK: CHOLESTEROL <200 <170 TRIGLYCERIDE <150 --- HDL >=60 --- LDL <100 <110 BORDERLINE: CHOLESTEROL 200-239 170-199 TRIGLYCERIDE 150-199 --- HDL 40-59 --- LDL 100-159 110-129 HIGH RISK: CHOLESTEROL >=240 >=200 TRIGLYCERIDE >=200 --- HDL <40 --- LDL >=160 >=130 10/14/2023 3:40 AM CDT Peggy Bland MD LABORATORY Final Result [facility] [address] [place] [address], from Last 3 Months or Most Recently Relevant to Health Maintenance Insurance [facility] MEDICAID MEDICAID [facility] Advance Directives * Full Code (Latest Code [...] 2:42 AM 03/18/2018 4:50 PM Care Teams Shoe Stitcher Odd Relationship Specialty Start Date End Date Justen Gale MD [address] [place] [address] PCP - General FAMILY PRACTICE 08/20/17 Meena Bansal MD [address] [place], [place] [id number] [place] [employer] Monitor CARDIOVASCULAR DISEASE 04/24/16
--- OUTSIDE RECORDS SUMMARY | 2024-07-11 00:52 | XMS_ITS | Encounter Summary ---
Author Organization [facility] Address [address] [place] [address] Phone Care Team Providers Care Sugar Boiler Name Role Phone Justen Gale MD Primary Care Provider [phone] David Roberts APRN, WAFER POLISHER Unavailable [phone] Annel Rod MD Unavailable Reason for Visit * Reason Comments Medication Refill Encounter Details Date Type Department Care Team (Late st Contact Info) Description 02/17/2021 Refill [facility] - Family Medicine [facility] [address] [place] [id number] Justen Gale MD [address] [address] Medication Refill Social History Tobacco Use Types [...] Office Visit Pili Elkins APRN, NET[facility] Showing recent visits within past 365 days and meeting all other requirements Future Appointments Date Type Provider Dept 03/02/21 Appointment Vince Hermosillo MD [facility] Showing future appointments within next 90 days and meeting all other requirements documented in this encounter Plan of Treatment Not on file documented as of this encounter Visit Diagnoses Not on filedocumented in this encounter Additional Health Concerns Assessment Noted Time PHQ-9 Depression Total Score: 0 07/21/19 21 3:00 PM CDT documented as of this encounter Care Teams Sugar Boiler Relationship Specialty Start Date End Date Justen Gale MD [address] [facility] [address] [place] [address] PCP - General Family Medicine 10/17/17 David Roberts APRN, NETTA [address] [place] [address] Nurse Practitioner Advanced Practice Nurse 01/31/22 Annel Rod MD [address] [facility] [address] [place] [address] Consulting Physician Endocrinology 07/01/22 documented as of this encounter
--- OUTSIDE RECORDS SUMMARY | 2024-07-11 00:52 | XMS_ITS | Encounter Summary ---
Author Organization [facility] Address [address] [place] [address] Phone Care Team Providers Care Manager Regional Name Role Phone Justen Gale MD Primary Care Provider [phone] David Roberts APRN, BLACK TOPPER Unavailable [phone] Annel Rod MD Unavailable Reason for Visit * Reason Onset Date Comments Toe Problem 07/11/2024 Encounter Details Date Type Department Care Team (Late st Contact Info) Description 07/11/2024 [facility]riage [facility] [address] [place] [address] Justen Gale MD [address] [address] Toe Problem Social History Tobacco Use Types Packs/Day [...] Telephone Encounter - Maris Huitron RN - 07/11/2024 12:05 AM CDT SITUATION: Pt calling about toe pain BACKGROUND: Pt contacting PCP office. Per chart review, Hypertension, Diabetes type 2, hyperthyroidism, chest pressure, speech impairment, neuropathy, Obstructive Sleep Apnea, dyspnea, generalized weakness, restless leg syndrome, deep vein thrombosis of right lower extremity, malignancy neoplasm of upper 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, history of pulmonary embolism Pt went to urgent care today for toe pain and redness, xray showed no fracture, and was prescribed antibiotic and steroids, taken late this evening ASSESSMENT: Symptom Description / Location: Little toe is red and swollen, willi than before Painful 8/10 Red going down side of foot Ankle and foot puffy 99.1 temperature this evening Denies injury, toe nail issue Pain: 8/10 Fever: Last temperature: 99.1 at 1800 hrs. Treatment / Response: tylenol, antibiotic and steroids with worsening. RECOMMENDATION: Caller agreeable to disposition: See HCP Within 4 Hours. Care advice provided per triage guideline.Caller verbalized understanding. - See care advice and disposition for Guideline. First positive answer recorded, all responses to prior questions were negative. If symptoms increase, change or if new symptoms develop, call your health care provider or call back. Recommendations were based on caller information and is not a diagnosis. Verified and reviewed all triage information with caller. Reason for Disposition [1] SEVERE pain (e.g., excruciating, unable to do any normal activities) AND [2] not improved after2 hours of pain medicine Protocols used: Toe Pain-A- documented in this encounter Plan of Treatment Not on file documented as of this encounter Visit Diagnoses Not on filedocumented in this encounter Additional Health Concerns Assessment Noted Time PHQ-9 Depression Total Score: 8 01/18/20 23 2:24 PM CDT documented as of this encounter Care Teams Manager Regional Relationship Specialty Start Date End Date Justen Gale MD [address] [facility] [address] [place] [address] PCP - General Family Medicine 10/17/17 David Roberts APRN, BLACK TOPPER [address] [place] [address] Nurse Practitioner Advanced Practice Nurse 01/31/22 Annel Rod MD [address]2 [facility] [address] [place] [address] Consulting Physician Endocrinology 07/01/22 documented as of this encounter
--- OUTSIDE RECORDS SUMMARY | 2024-07-11 00:52 | XMS_ITS | Referral Summary ---
Author Organization [facility] Address [address] [place] [phone] Care Team Providers Care Photographic Aide Name Role Phone Liu Jerez MD Unavailable Albert Corbin MD Unavailable [phone] Justen Gale MD Primary Care Provider [phone] Khris Arthur MD Unavailable [phone] Ko Melendez MD Unavailable John Paul Moyer MD Unavailable Annel Rod MD Unavailable Anali MARSHALL MD, Carlos M. Unavailable Encounters Date Type Department Care Team Description 07/01/2024 8:52 PM CDT - 07/01/2024 10:18 PM CDT Emergency [facility] Emergency Department [address] [place] [address] Myalgia (Primary Dx); Viral syndrome Discharge Disposition: Discharge to home or self care 05/30/2024 Orders Only [facility] Oncology [address] [facility] [address] [place] [address] Radha Mcgrath RN Lymphedema of left arm (Primary Dx); Malignant neoplasm of upper-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, unspecified estrogen receptor status (HCC); Malignant neoplasm of overlapping sites of left female breast, unspecified estrogen receptor status (HCC); Malignant neoplasm of female breast, unspecified estrogen receptor status, unspecified laterality, unspecified site of breast (HCC) 05/21/2024 9:12 PM JAVASCRIPT UI DEVELOPER - 05/26/2024 6:45 PM JAVASCRIPT UI DEVELOPER Hospital Encounter [address] [address] Jimmie Zavala MD Liss, MD Ra Parnell, MD Sebastian Claros, MD Carlos Left arm pain (Primary Dx); Left leg pain; Shortness of breath; Urinary tract infection without hematuria, site unspecified; Allergy to drug Discharge Disposition: Discharge to home or self care 05/24/2024 Telephone [facility] [address] [place] [address] Radha Warner RN 05/23/2024 8:10 AM JAVASCRIPT UI DEVELOPER Ancillary Procedure [facility] Vascular Lab IP [address] [facility] [address] [place] [address] 05/21/2024 12:58 PM JAVASCRIPT UI DEVELOPER - 05/21/2024 11:59 PM JAVASCRIPT UI DEVELOPER Hospital Encounter [facility] [address] [place] [address] Discharge Disposition: Discharge to home or self care 05/21/2024 11:00 AM JAVASCRIPT UI DEVELOPER - 05/21/2024 11:59 PM JAVASCRIPT UI DEVELOPER Hospital Encounter [facility] - Breast Imaging [address] [place] [address] Floor [address] [place] [address] History of breast cancer; Axillary pain, left Discharge Disposition: Discharge to home or self care 05/16/2024 Telephone [facility] Oncology [address] [place] [address] [address] [place] [address] Jeanine Ba RMA 05/16/2024 Orders Only [facility] Oncology [address] [place] [address] [address] [place] [address] Radha Mcgrath RN History of breast cancer (Primary Dx); Axillary pain, left 05/16/2024 Orders Only [facility] Oncology [address] [place] [address] 8 [place] [address] Khris Arthur MD Swelling of left upper extremity (Primary Dx); Swelling of left lower extremity 05/14/2024 4:45 PM JAVASCRIPT UI DEVELOPER Lab [facility] - Lab Collection [address] [place] [address] 5 [place] [address] Malignant neoplasm of upper-inner quadrant of left breast in female, estrogen receptor positive (HCC) 05/14/2024 4:36 PM JAVASCRIPT UI DEVELOPER - 05/14/2024 11:59 PM JAVASCRIPT UI DEVELOPER Hospital Encounter [facility] - Diagnostic Imaging [address] [place] [address] 8 [place] [address] Malignant neoplasm of upper-inner quadrant of left breast in female, estrogen receptor positive (HCC) Discharge Disposition: Discharge to home or self care 05/14/2024 4:00 PM JAVASCRIPT UI DEVELOPER Lab [facility] Lab [address] [place] [phone] Malignant neoplasm of upper-inner quadrant of left breast in female, estrogen receptor positive (HCC) 05/14/2024 3:30 PM JAVASCRIPT UI DEVELOPER Office Visit [facility] Oncology [address] [place] [phone] Khris Arthur MD Swelling of right lower extremity (Primary Dx); Malignant neoplasm of upper-inner quadrant of left breast in female, estrogen receptor positive (HCC); Swelling of right upper extremity; Swelling of left upper extremity; Swelling of left lower extremity 04/22/2024 Telephone [facility]cology [address] [place] [phone] Radha Mcgrath, RN 04/19/[address] [phone] Lalita Braun, NURIS Scheduling Appointments from Last 3 Months Allergies Active Allergy [...] needed for wheezing or shortness of breath 021 Active naloxone (NARCAN) 4 mg/actuation spray,non-aerosol 022 Active BD Ultra-Fine Short Pen Needle 31 gauge x 5/16 needle USE 6 TIMES DAILY DIRECTED 022 Active oxyBUTYnin XL (DITROPAN XL) 15 mg 24 hr tablet Take 1 tablet (15 mg total) by mouth daily 023 Active insulin glargine 100 unit/mL vial for injection Inject 32 Units under the skin daily Takes in the morning Active Additional Information Patient taking differently: 40 Unitssubcutaneous Daily, Takes in the morning, Reported on 05/22/2024 gabapentin (NEURONTIN) 300 mg capsule Take 1 capsule (300 mg total) by mouth 3 (three) times a day Active ondansetron ODT (ZOFRAN-ODT) 4 mg disintegrating tablet Take 1 tablet (4 mg total) by mouth every 4 (four) hours as needed for nausea or vomiting 20 tablet Active methenamine (HIPREX) 1 gram tablet Take 1 tablet (1,000 mg total) by mouth 2 (two) times a day Active ondansetron (ZOFRAN) 4 mg tablet Take 1 tablet (4 mg total) by mouth every 8 (eight) hours as needed for nausea or vomiting Active rivaroxaban (Xarelto) 20 mg tabletIndications :Chronic [...] total) by mouth daily 30 tablet 11 Active HYDROcodone-aceta minophen (NORCO) 10-325 mg per tablet Take 1 tablet by mouth every 6 (six) hours as needed for pain Active insulin lispro (HumaLOG, ADMELOG) 100 unit/mL [...] 05/22/2024 Assessment & Plan (05/26/2024 10:08 AM JAVASCRIPT UI DEVELOPER): Presenting with urinary symptoms of right flank [...] 05/22/2024 Assessment & Plan (05/25/2024 7:52 AM JAVASCRIPT UI DEVELOPER): Hx of breast cancer c/b DVT/bilateral Pes [...] 05/22/2024 Assessment & Plan (05/22/2024 1:14 PM JAVASCRIPT UI DEVELOPER): -long-standing chronic back pain -CT L spine [...] 09/12/2021 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) 2021 longterm (current) use 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 inhibitors 10/17/2019 Thyroid [...] long-term current use of insulin ([facility]) 10/23/2017 Assessment & Plan [...] 10/13/2017 Assessment & Plan (05/22/2024 12:29 PM JAVASCRIPT UI DEVELOPER): -Hx stage II, ER positive, HER2 negative breast cancer, on adjuvant exemestane -s/p bilateral mastectomies, left axillary LN dissection, with negative margins -Follows with Khris Somers -Outpatient Medical Oncology Note review indicates plan to continue on exemestane, will complete 10 years of therapy in 12/2024 -Yearly Reclast, next dose 11/2024 Chest pressure 08/01/2017 Positive blood culture 08/01/2017 Hyponatremia 08/01/2017 Diet-controlled diabetes mellitus ([facility]/HCC) 07/23 LUL (obstructive sleep apnea) 08/01/2017 Assessment & Plan (05/22/2024 12:33 PM JAVASCRIPT UI DEVELOPER): -Hx LUL -Hospital provided CPAP ordered History of DVT (deep vein thrombosis) 08/01/2017 History of pulmonary embolism 08/01/2017 Generalized weakness 07/27/2017 Dyspnea 07/27/2017 Unintentional weight loss 07/27/2017 Acute cystitis without hematuria 07/27/2017 Nausea and vomiting 07/26/2017 Overview (07/28/2017): Added automatically from request for surgery [id number] Pulmonary embolism 08/09/2016 Assessment & Plan (10/23/2017 2:05 AM CDT): On Rivaroxaban Lymphedema of left upper extremity 08/09/2016 Assessment & Plan (05/25/2024 7:53 AM JAVASCRIPT UI DEVELOPER): S/p L axillary lymph node dissection 2014, [...] syndrome Assessment & Plan (05/22/2024 11:18 AM JAVASCRIPT UI DEVELOPER): -continue home Requip 5mg nightly Pain of lower extremity 03/12/2013 Overview (07/29/2016): Leg pain Essential hypertension Assessment & Plan (05/23/2024 10:42 AM JAVASCRIPT UI DEVELOPER): -Chart history of HTN but not on meds -BP elevated on admission, likely some pain contributing -Monitor closely once pain under adequate control, discussed following up with PCP for this Chronic anticoagulation Restless leg syndrome 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 Type 2 diabetes mellitus without complication Assessment & Plan (05/24/2024 1:39 PM JAVASCRIPT UI DEVELOPER): -Last Ha1c 8.4 in 2023, repeat 8.7 -Home meds: Lantus 40 units daily, lispro 28units 3x daily w/meals -Uncontrolled DM may be contributing to recurrent UTIs -Inpatient Rx dose reduced to 30 units Lantus daily (first dose now) and 10 units TID w/meals, SSI prn -continue home gabapentin 300mg TID for Neuropathy Constipation Dyslipidemia History of breast cancer Intractable pain Immunizations Immunization Administration Dates Next Due Influenza, [...] week 05/24/2024 How often do you attend chur ch or mu-ism services? More than 4 times per year 05/24/2024 Do you belong to any clubs o r organizations such as anabaptism groups, unions, fraternal or athletic groups, or [...] a senior living (including now)? No 08/15/2023 Housing Stability Vital Sign Answer [place] e Recorded In the last 12 months, was t here a time when you were not able to pay the mortgage or rent on time? No 05/24/2024 In the past 12 months, how m any times have you moved where you were living? 0 05/24/2024 At any time in the past 12 m [facility], were you homeless or living in a senior living (including now)? No 05/24/2024 Personal Safety Answer Date Recorded Have you ever been in or are you currently in a harmful physical or emotional relationship or is someone making you feel afraid or unsafe? Denies 07/01/2024 Comments No Sex and Gender Information Value Date Recorded Sex Assigned at Not on file Legal Sex Female 12:24 AM JAVASCRIPT UI DEVELOPER Gender Identity Not on file Sexual [...] 07/01/2024 1:49 PM CDT Plan of Treatment Not on [...] GLUCOSE DEVICE Routine 05/26/2024 4 :27 PM JAVASCRIPT UI DEVELOPER POCT GLUCOSE DEVICE Routine 05/26/2024 1 1:38 AM JAVASCRIPT UI DEVELOPER POCT GLUCOSE DEVICE Routine 05/26/2024 8 :12 AM JAVASCRIPT UI DEVELOPER EGFR Routine 05/26/2024 12:05 AM JAVASCRIPT UI DEVELOPER DIFFERENTIAL AUTO Routine 05/26/2024 12: 05 AM JAVASCRIPT UI DEVELOPER PHOSPHORUS Routine 05/26/2024 12:05 AM JAVASCRIPT UI DEVELOPER COMPREHENSIVE METABOLIC PANEL Routine 05/26/2024 12:05 AM JAVASCRIPT UI DEVELOPER MAGNESIUM Routine 05/26/2024 12:05 AM JAVASCRIPT UI DEVELOPER CBC WITH AUTO DIFFERENTIAL Routine 05/26/2024 12:05 AM JAVASCRIPT UI DEVELOPER POCT GLUCOSE DEVICE Routine 05/25/2024 7 :44 PM JAVASCRIPT UI DEVELOPER POCT GLUCOSE DEVICE Routine 05/25/2024 5 :24 PM JAVASCRIPT UI DEVELOPER POCT GLUCOSE DEVICE Routine 05/25/2024 1 1:37 AM JAVASCRIPT UI DEVELOPER POCT GLUCOSE DEVICE Routine 05/25/2024 7 :27 AM JAVASCRIPT UI DEVELOPER EGFR Routine 05/25/2024 12:20 AM JAVASCRIPT UI DEVELOPER DIFFERENTIAL AUTO Routine 05/25/2024 12: 20 AM JAVASCRIPT UI DEVELOPER PHOSPHORUS Routine 05/25/2024 12:20 AM JAVASCRIPT UI DEVELOPER COMPREHENSIVE METABOLIC PANEL Routine 05/25/2024 12:20 AM JAVASCRIPT UI DEVELOPER MAGNESIUM Routine 05/25/2024 12:20 AM JAVASCRIPT UI DEVELOPER CBC WITH AUTO DIFFERENTIAL Routine 05/25/2024 12:20 AM JAVASCRIPT UI DEVELOPER POCT GLUCOSE DEVICE Routine 05/24/2024 8 :13 PM JAVASCRIPT UI DEVELOPER POCT GLUCOSE DEVICE Routine 05/24/2024 5 :17 PM JAVASCRIPT UI DEVELOPER POCT GLUCOSE DEVICE Routine 05/24/2024 1 2:49 PM JAVASCRIPT UI DEVELOPER POCT GLUCOSE DEVICE Routine 05/24/2024 9 :22 AM JAVASCRIPT UI DEVELOPER HERPES SIMPLEX VIRUS (HSV) PCR Routine 05/24/2024 8:47 AM JAVASCRIPT UI DEVELOPER POCT GLUCOSE DEVICE Routine 05/24/2024 8 :22 AM JAVASCRIPT UI DEVELOPER EGFR Routine 05/24/2024 12:29 AM JAVASCRIPT UI DEVELOPER DIFFERENTIAL AUTO Routine 05/24/2024 12: 29 AM JAVASCRIPT UI DEVELOPER PHOSPHORUS Routine 05/24/2024 12:29 AM JAVASCRIPT UI DEVELOPER COMPREHENSIVE METABOLIC PANEL Routine 05/24/2024 12:29 AM JAVASCRIPT UI DEVELOPER MAGNESIUM Routine 05/24/2024 12:29 AM JAVASCRIPT UI DEVELOPER CBC WITH AUTO DIFFERENTIAL Routine 05/24/2024 12:29 AM JAVASCRIPT UI DEVELOPER POCT GLUCOSE DEVICE Routine 05/23/2024 8 :16 PM JAVASCRIPT UI DEVELOPER POCT GLUCOSE DEVICE Routine 05/23/2024 6 :14 PM JAVASCRIPT UI DEVELOPER POCT GLUCOSE DEVICE Routine 05/23/2024 1 2:17 PM JAVASCRIPT UI DEVELOPER US VEIN DUPLEX LOWER EXTREMITY BILATERAL COMPLETE IP Routine 05/23/2024 11:45 AM JAVASCRIPT UI DEVELOPER POCT GLUCOSE DEVICE Routine 05/23/2024 8 :16 AM JAVASCRIPT UI DEVELOPER DIFFERENTIAL AUTO Routine 05/23/2024 2:3 0 AM JAVASCRIPT UI DEVELOPER CBC WITH AUTO DIFFERENTIAL Routine 05/23/2024 2:30 AM JAVASCRIPT UI DEVELOPER EGFR Routine 05/23/2024 12:42 AM JAVASCRIPT UI DEVELOPER LACTATE DEHYDROGENASE Routine 05/23/2024 12:42 AM JAVASCRIPT UI DEVELOPER URIC ACID Routine 05/23/2024 12:42 AM JAVASCRIPT UI DEVELOPER TYPE AND SCREEN Timed 05/23/2024 12:42 AM JAVASCRIPT UI DEVELOPER PHOSPHORUS Routine 05/23/2024 12:42 AM JAVASCRIPT UI DEVELOPER COMPREHENSIVE METABOLIC PANEL Routine 05/23/2024 12:42 AM JAVASCRIPT UI DEVELOPER MAGNESIUM Routine 05/23/2024 12:42 AM JAVASCRIPT UI DEVELOPER POCT GLUCOSE DEVICE Routine 05/22/2024 8 :56 PM JAVASCRIPT UI DEVELOPER POCT GLUCOSE DEVICE Routine 05/22/2024 6 :09 PM JAVASCRIPT UI DEVELOPER POCT GLUCOSE DEVICE Routine 05/22/2024 4 :[address] ABDOMEN PELVIS W CONTRAST ED 05/22/2024 2:32 PM JAVASCRIPT UI DEVELOPER POCT GLUCOSE DEVICE Routine 05/22/2024 1 2:58 PM JAVASCRIPT UI DEVELOPER POCT GLUCOSE DEVICE Routine 05/22/2024 9 :29 AM JAVASCRIPT UI DEVELOPER POCT GLUCOSE DEVICE Routine 05/22/2024 6 :54 AM JAVASCRIPT UI DEVELOPER CT CHEST PE W CONTRAST ED 05/22/2024 1:31 AM JAVASCRIPT UI DEVELOPER D-DIMER, QUANTITATIVE Routine 05/22/2024 12:24 AM JAVASCRIPT UI DEVELOPER URINALYSIS, MICROSCOPIC ONLY Routine 05/21/2024 11:09 PM JAVASCRIPT UI DEVELOPER TROPONIN I HIGH-SENSITIVITY 2-HOUR Timed 05/21/2024 11:09 PM JAVASCRIPT UI DEVELOPER URINE CULTURE Routine 05/21/2024 11:09 PM JAVASCRIPT UI DEVELOPER RESPIRATORY PATHOGEN PANEL Routine 05/21/2024 11:09 PM JAVASCRIPT UI DEVELOPER URINALYSIS AND REFLEX TO MICROSCOPIC AND CULTURE Routine 05/21/2024 11:09 PM JAVASCRIPT UI DEVELOPER POCT GLUCOSE DEVICE Routine 05/21/2024 8 :55 PM JAVASCRIPT UI DEVELOPER TROPONIN I HIGH-SENSITIVITY 4-HOUR Timed 05/21/2024 7:26 PM JAVASCRIPT UI DEVELOPER LIPID PANEL STAT 05/21/2024 4:20 PM JAVASCRIPT UI DEVELOPER HEMOGLOBIN A1C STAT 05/21/2024 4:20 PM JAVASCRIPT UI DEVELOPER EGFR STAT 05/21/2024 4:20 PM JAVASCRIPT UI DEVELOPER DIFFERENTIAL AUTO STAT 05/21/2024 4:2 0 PM JAVASCRIPT UI DEVELOPER TROPONIN I HIGH-SENSITIVITY SERIES (BASELINE, 2HR, 4HR, 6HR) STAT 05/21/2024 4:20 PM JAVASCRIPT UI DEVELOPER COMPREHENSIVE METABOLIC PANEL STAT 05/21/2024 4:20 PM JAVASCRIPT UI DEVELOPER CBC WITH AUTO DIFFERENTIAL STAT 05/21/2024 4:20 PM JAVASCRIPT UI DEVELOPER XR CHEST PA LATERAL 2 VIEWS ED 05/21/2024 2:23 PM JAVASCRIPT UI DEVELOPER POCT GLUCOSE DEVICE Routine 05/21/2024 1 :39 PM JAVASCRIPT UI DEVELOPER ECG 12-LEAD STAT 05/21/2024 1:36 PM JAVASCRIPT UI DEVELOPER US AXILLARY LEFT Schedule Routine, Read Routine (OP Routine) 05/21/2024 12:13 PM JAVASCRIPT UI DEVELOPER History of breast cancer Axillary pain, left URINALYSIS, MICROSCOPIC ONLY Routine 05/14/2024 4:50 PM JAVASCRIPT UI DEVELOPER Malignant neoplasm of upper-inner quadrant of left breast in female, estrogen receptor positive (HCC) URINALYSIS AND REFLEX TO MICROSCOPIC AND CULTURE Routine 05/14/2024 4:50 PM JAVASCRIPT UI DEVELOPER Malignant neoplasm of upper-inner quadrant of left breast in female, estrogen receptor positive (HCC) XR RIBS LEFT 2 VIEWS Schedule Routine, Read Routine (OP Routine) 05/14/2024 4:44 PM JAVASCRIPT UI DEVELOPER Malignant neoplasm of upper-inner quadrant of [...] breath since last night. 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 AR: VALERY Report ID: [id number] Reading Location: [id number] Procedure Note Juve Gallegos MD - 07/01/2024 EXAM DESCRIPTION: CT [...] Juve Gallegos M.D. AR: VALERY Report ID: [id number] Reading Location: [place] [address] [facility] PROCEDURES Final Resu lt * (ABNORMAL) Troponin T high-sensitivity 2-hour (07/01/2024 3:43 PM CDT) Trop T hs 27(H) <=14 ng/L Comment: Interpretive Data For further hscTnT resources including the diagnostic algorithm and an aid in interpretation, copy and paste this link: https://nrl.testcatalog.org/show/hsTrop Current Interpretive Data last revised 2020. Testing performed by: [facility], [address] [place] [address]., [address] Trop T hs delta 0 ng/L CERNER Comment:Testing performed by : [address] [address] Trop T hs interp Insignificant MARY JANE Comment:Testing performed by : [address] [address] Blood 07/01/2024 3:43 PM CDT 07/01/2024 3:52 PM CDT us Ilana Stevens MD LAB BLOOD ORDERABLES F inal Result [facility] [address] [facility] Department [place] [address] * (ABNORMAL) Urinalysis reflex to microscopic and culture Urine (07/01/2024 3:43 PM CDT) Color, ur Yellow Yellow Comment:Testing performed by : [address] [address] Clarity, ur Clear Clear MARY JANE Comment:Testing performed by : [address] [address] Specific gravity, ur 1.020 1.003 - 1.030 MARY JANE Comment:Testing performed by : [address] [address] pH, urine 6.0 MARY JANE Comment: Interpretive Data U rine pH is affected by diet, medications, systemic acid-base disturbances, and renal tubular function. pH may affect urinary stone formation. For example, urine pH below 6.0 may help reduce the tendency for calcium phosphate stones and pH greater than 6.0 may reduce the tendency for uric acid stone formation. Source: [facility] backstitch Current Interpretive Data was last revised on 2017 Testing performed by: [address] [address] Protein, ur ql Negative Negative MARY JANE Comment:Testing performed by : [address] [address] Glucose, ur ql 2+(A) Negative MARY JANE Comment:Testing performed by : [address] [address] Ketones, ur Negative Negative MARY JANE PHAM Comment:Testing performed by : [address], [place]., [address] Bilirubin, ur Negative Negative MARY JANE PHAM Comment:Testing performed by : [address], [place]., [address] Blood, ur Trace(A) Negative MARY JANE PHAM Comment:Testing performed by : [address], [place]., [address] Urobilinogen, ur <2.0 <2.0 mg/dL MARY JANE Comment:Testing performed by : [address], [place]., [address] Nitrite, ur Negative Negative MARY JANE PHAM Comment:Testing performed by : [address], [place]., [address] Leukocyte esterase, ur Negative Negative MARY JANE Comment:Testing performed by : [address], [place]., [address] UA reflex comment Reflex to microscopic UA will be performed. MARY JANE Comment:Testing performed by : [address], [place]., [address] Urine 07/01/2024 3:43 PM CDT 07/01/2024 3:52 PM CDT Ilana Stevens MD LAB MICROBIOLOGY - GEN ERAL ORDERABLES Final Result MARY JANE [id number] [facility] Department of Laboratories [place], [place] [id number] * (ABNORMAL) Urinalysis, microscopic only (07/01/2024 3:43 PM CDT) WBC, ur 0-5 0 - 5 /HPF Comment:Testing performed by : [address] [address] RBC, ur 3-5(A) 0 - 2 /HPF MARY JANE PHAM Comment:Testing performed by : [address] [address] Epithelial cells, squamous, ur 1-5 0 - 5 /HPF MARY JANE PHAM Comment:Testing performed by : [address] [place] [address] Mucous, ur Present(A) MARY JANE PHAM Comment:Testing performed by : [address] [address] Culture Reflex Comment Reflex conditions for urine culture (WBC >10) not met. MARY JANE PHAM Comment:Testing performed by : [facility], [address] [place] [address]., [address] Urine 07/01/2024 3:4 3 PM CDT 07/01/2024 3:52 PM CDT us Ilana Stevens MD LAB URINE ORDERABLES F inal Result MARY JANE PHAM [id number] [facility] Department [place] [address] * XR Chest 1 Vw Portable (if [...] Romelia Bowen D.O. PS: PS Report ID: [id number] Reading Location: [id number] Procedure Note Jessi Romelia Macias - 07/01/2024 EXAM DESCRIPTION: XR CHEST 1 [...] Romelia Bowen D.O. PS: PS Report ID: [id number] Reading Location: [id number] Ilana Stevens MD IMG XR PROCEDURES Deann l Result * ECG 12 lead (07/01/2024 2:05 PM CDT) Ventricular Rate EKG/Min 76 BPM [facility] Atrial Rate 76 BPM [facility] UT-Interval (MSEC) 130 ms [facility] QRS-Interval (MSEC) 86 ms [facility] QT-Interval (MSEC) 386 ms [facility] QTc 434 ms [facility] P [place] 26 degrees [facility] R [place] 22 degrees [facility] T [place] 46 degrees [facility] Diagnosis Normal sinus rhythm Normal ECG When compared with ECG of 28-DEC-2023 12:49, No significant change was found Confirmed by DUTCH BURGOS M.D. ([id number]) on 07/01/2024 10:10:22 PM [facility] 07/01/2024 2:05 PM CDT 07/01/2024 10:10 PM CDT Ilana Stevens MD ECG ORDERABLES Final Result Performing Organization Address City/[facility]/ZIP Co de Phone Number [facility] * (ABNORMAL) Troponin T high-sensitivity series (baseline, 2hr, 4hr, 6hr) (07/01/2024 2:02 PM CDT) Pathologist [facility] Trop T hs 27(H) <=14 ng/L Comment: Interpretive Data For further hscTnT resources including the diagnostic algorithm and an aid in interpretation, copy and paste this link: https://nrl.testcatalog.org/show/hsTrop Current Interpretive Data last revised 2020. Testing performed by: [address] [address] Blood 07/01/2024 2:02 PM CDT 07/01/2024 2:12 PM CDT Ilana Stevens MD LAB BLOOD ORDERABLES F inal Result Performing Organization Address City/[facility] Co de Phone Number [facility] [address] [facility] Department [place] [address] * Influenza A/B, RSV, and COVID-19 PCR Nasopharyngeal (07/01/2024 2:02 PM CDT) [facility] COVID-19 RNA Negative Negative Comment:Testing performed by : [address] [address] Influenza A RNA Negative Negative MARY JANE Comment:Testing performed by : [address] [address] Influenza B RNA Negative Negative [facility] Comment:Testing performed by : [address] [address] RSV RNA Negative Negative MARY JANE Comment: Interpretive data: Testing performed by [facility]. This test is performed using the [employer] Xpert Xpress CoV-2/Flu/RSV plus assay. This is a multiplex, real-time reverse transcriptase PCR assay intended for the qualitative detection of nucleic acid from SARS-CoV-2, influenza A, influenza B, and respiratory syncytial virus. This assay has been cleared by the [place] Food and Drug administration. The performance characteristics have been verified by the [facility]. Results must be considered in the clinical context, and a negative result does not rule out infection. Interpretive Data last revised 2023 Testing performed by: [facility], [address] [place] [address]., [address] Nasopharyngeal 07/01/2024 2: 02 PM CDT 07/01/2024 2:12 PM CDT Narrative MARY JANE - 07/01/2024 2:52 PM CDT Is the Patient experiencing symptoms consistent with COVID?->Yes us Ilana Stevens MD LAB MICROBIOLOGY - GEN ERAL ORDERABLES Final Result MARY JANE [address] [facility] Department [place] Laboratories [place], [place] [id number] * eGFR (07/01/2024 2:02 PM CDT) eGFR >90 >=60 mL/min/1. 73 [...] was last reviewed 2021. Testing performed by: [facility], [address] [place] [address]., [id number] Blood 07/01/2024 2:02 PM CDT 07/01/2024 2:12 PM CDT us Ilana Stevens MD LAB BLOOD ORDERABLES F inal Result [facility] [address] [facility] Department [place] [address] * Differential, auto (07/01/2024 2:02 PM CDT) Neutrophil abs 5.3 1.5 - 6.5 K/cumm Comment:Testing performed by : [address] [address] Imm gran abs 0.0 0.0 - 0.1 K/cumm MARY JANE Comment:Testing performed by : [address] [address] Lymphocyte abs 2.6 0.8 - 3.3 K/cumm MARY JANE Comment:Testing performed by : [address] [address] Monocyte abs 0.8 0.2 - 0.8 K/cumm MARY JANE Comment:Testing performed by : [address] [address] Eosinophil abs 0.2 0.0 - 0.5 K/cumm MARY JANE Comment:Testing performed by : [address] [address] Basophil abs 0.0 0.0 - 0.1 K/cumm MARY JANE Comment:Testing performed by : [address] [address] Neutrophil pct 59.1 % MARY JANE Comment: Interpretive Data Percent cell count reference ranges are not reported, since discordance with absolute values may lead to misinterpretation of CBC data. Current Interpretive Data was last revised on 2017. Testing performed by: [address] [address] Imm gran pct 0.2 % MARY JANE Comment: Interpretive Data Percent cell count reference ranges are not reported, since discordance with absolute values may lead to misinterpretation of CBC data. Current Interpretive Data was last revised on 2017. Testing performed by: [address] [address] Lymphocyte pct 29.0 % [facility] Comment: Interpretive Data Percent cell count reference ranges are not reported, since discordance with absolute values may lead to misinterpretation of CBC data. Current Interpretive Data was last revised on 2017. Testing performed by: [facility], [address] [place] [address]., [address] Monocyte pct 9.3 % [facility] Comment: Interpretive Data Percent cell count reference ranges are not reported, since discordance with absolute values may lead to misinterpretation of CBC data. Current Interpretive Data was last revised on 2017. Testing performed by: [address] [address] Eosinophil pct 2.2 % [facility] Comment: Interpretive Data Percent cell count reference ranges are not reported, since discordance with absolute values may lead to misinterpretation of CBC data. Current Interpretive Data was last revised on 2017. Testing performed by: [address] [address] Basophil pct 0.2 % [facility] Comment: Interpretive Data Percent cell count reference ranges are not reported, since discordance with absolute values may lead to misinterpretation of CBC data. Current Interpretive Data was last revised on 2017. Testing performed by: [address] [address] Blood 07/01/2024 2:02 PM CDT 07/01/2024 2:12 PM CDT Ilana Stevens MD LAB BLOOD ORDERABLES F inal Result MARY JANE [address] [facility] Department [place] [address] * Pro B-type natriuretic peptide (07/01/2024 2:02 [...] Last Revised Date: 2017. Testing performed by: [address] [address] Blood 07/01/2024 2:02 PM CDT 07/01/2024 2:12 PM CDT Ilana Stevens MD LAB BLOOD ORDERABLES F inal Result [facility] [address] [facility] Department [place] [address] * (ABNORMAL) CBC with auto differential (07/01/2024 2:02 PM CDT) [facility] WBC 9.0 3.8 - 9.9 K/cumm Comment:Testing performed by : [address] [address] Hgb 13.2 11.9 - 15.5 g/dL MARY JANE PHAM Comment:Testing performed by : [address] [address] Hct 41.1 35.6 - 45.5 % MARY JANE Comment:Testing performed by : [address], [address] Plt 277 150 - 400 K/cumm MARY JANE Comment:Testing performed by : [address], [address] MPV 9.5 9.1 - 12.3 fL MARY JANE Comment:Testing performed by : [address], [address] RBC 4.53 3.90 - 5.20 M/cumm MARY JANE Comment:Testing performed by : [address], [address] MCV 90.7 81.3 - 96.4 fL MARY JANE Comment:Testing performed by : [address], [address] MCH 29.1 27.1 - 33.3 pg MARY JANE Comment:Testing performed by : [address], [address] MCHC 32.1(L) 32.3 - 35.7 g/dL MARY JANE Comment:Testing performed by : [address], [address] RDW CV 13.2 11.1 - 14.9 % MARY JANE Comment:Testing performed by : [address], [address] RDW SD 44.2 35.7 - 48.1 fL MARY JANE Comment:Testing performed by : [address], [address] NRBC abs 0.00 0.00 - 0.01 K/cumm MARY JANE Comment:Testing performed by : [address], [address] Blood 07/01/2024 2:02 PM CDT 07/01/2024 2:12 PM CDT us Ilana Stevens MD LAB BLOOD ORDERABLES F inal Result MARY JANE [address] [facility] Department [place] [address] * Comprehensive metabolic panel (07/01/2024 2:02 PM CDT) Sodium 137 135 - 145 mmol/L Comment:Testing performed by : [facility], [address] [place] [address]., [address] Potassium, pl 4.2 3.3 - 4.9 mmol/L MARY JANE Comment:Testing performed by : [address], [place]., [address] Chloride 101 97 - 110 mmol/L MARY JANE Comment:Testing performed by : [address] [address] CO2 27 22 - 32 mmol/L MARY JANE Comment:Testing performed by : [address], [place]., [address] Anion gap 9 2 - 15 mmol/L MARY JANE Comment:Testing performed by : [address] [address] BUN 15 6 - 25 mg/dL MARY JANE Comment:Testing performed by : [address] [address] Creatinine 0.60 0.60 - 1.10 mg/dL MARY JANE Comment:Testing performed by : [address] [address] Glucose 166 70 - 199 mg/dL MARY [...] last revised 2022. Testing performed by: [address] [address] Calcium 9.8 8.5 - 10.3 mg/dL MARY JANE Comment:Testing performed by : [address] [address] Bilirubin, total 0.5 0.1 - 1.2 mg/dL MARY JANE Comment:Testing performed by : [address] [address] Protein, pl 8.0 6.5 - 8.5 g/dL MARY JANE Comment:Testing performed by : [address] [address] Albumin 3.8 3.5 - 5.0 g/dL MARY JANE Comment:Testing performed by : [address] [address] Alk phos 72 40 - 130 Units/L MARY JANE Comment:Testing performed by : [address] [address] ALT 19 7 - 45 Units/L MARY JANE Comment:Testing performed by : [address] [address] AST 23 10 - 45 Units/L MARY JANE Comment:Testing performed by : [address] [address] Blood 07/01/2024 2:02 PM CDT 07/01/2024 2:12 PM CDT Ilana Stevens MD LAB BLOOD ORDERABLES F inal Result MARY JANE [address] Department [place] [address] * POCT glucose (05/26/2024 4:27 PM JAVASCRIPT UI DEVELOPER) Glucose, POC 137 70 - 199 mg/dL Blood 05/26/2024 4:27 PM JAVASCRIPT UI DEVELOPER 05/26/2024 4:27 PM JAVASCRIPT UI DEVELOPER Carlos Real MD LAB POCT ORDERABLES - DEVICE Fin al Result MARY JANE [facility] Department [place] [address] * POCT glucose (05/26/2024 11:38 AM JAVASCRIPT UI DEVELOPER) Glucose, POC 146 70 - 199 mg/dL Blood 05/26/2024 11:3 8 AM JAVASCRIPT UI DEVELOPER 05/26/2024 11:38 AM JAVASCRIPT UI DEVELOPER Carlos Real MD LAB POCT ORDERABLES - DEVICE Fin al Result Performing Organization Address City/[facility] Co de Phone Number [facility] Department [place] [address] * POCT glucose (05/26/2024 8:12 AM JAVASCRIPT UI DEVELOPER) Glucose, POC 134 70 - 199 mg/dL Blood 05/26/2024 8:12 AM JAVASCRIPT UI DEVELOPER 05/26/2024 8:12 AM JAVASCRIPT UI DEVELOPER Carlos Real MD LAB POCT ORDERABLES - DEVICE Fin al Result Performing Organization Address [facility] de Phone Number [facility] Department [place] [address] * eGFR (05/26/2024 12:05 AM JAVASCRIPT UI DEVELOPER) eGFR >90 >=60 mL/min/1. 73 m2 Comment: [...] reviewed 2021. Blood 05/26/2024 12:0 5 AM JAVASCRIPT UI DEVELOPER 05/26/2024 12:23 AM JAVASCRIPT UI DEVELOPER us Carlos Real MD LAB BLOOD ORDERABLES Final Resul t [facility] Department [place] [address] * (ABNORMAL) Differential, auto (05/26/2024 12:05 AM JAVASCRIPT UI DEVELOPER) Neutrophil abs 6.4 1.5 - 6.5 K/cumm Imm gran abs 0.0 0.0 - 0.1 K/cumm [facility] Lymphocyte abs 2.9 0.8 - 3.3 K/cumm [facility] Monocyte abs 0.9(H) 0.2 - 0.8 K/cumm [facility] Eosinophil abs 0.3 0.0 - 0.5 K/cumm [facility] Basophil abs 0.0 0.0 - 0.1 K/cumm [facility] Neutrophil pct 60.4 % [facility] Comment: Interpretive Data Percent cell count reference ranges are not reported, since discordance with absolute values may lead to misinterpretation of CBC data. Current Interpretive Data was last revised on 2017. Imm gran pct 0.4 % [facility] Comment: Interpretive Data Percent cell count reference ranges are not reported, since discordance with absolute values may lead to misinterpretation of CBC data. Current Interpretive Data was last revised on 2017. Lymphocyte pct 27.5 % [facility] Comment: Interpretive Data Percent cell count reference ranges are not reported, since discordance with absolute values may lead to misinterpretation of CBC data. Current Interpretive Data was last revised on 2017. Monocyte pct 8.2 % [facility] Comment: Interpretive Data Percent cell count reference ranges are not reported, since discordance with absolute values may lead to misinterpretation of CBC data. Current Interpretive Data was last revised on 2017. Eosinophil pct 3.1 % [facility] Comment: Interpretive Data Percent cell count reference ranges are not reported, since discordance with absolute values may lead to misinterpretation of CBC data. Current Interpretive Data was last revised on 2017. Basophil pct 0.4 % [facility] Comment: Interpretive Data Percent cell count reference ranges are not reported, since discordance with absolute values may lead to misinterpretation of CBC data. Current Interpretive Data was last revised on 2017. Blood 05/26/2024 12:0 5 AM JAVASCRIPT UI DEVELOPER 05/26/2024 12:07 AM JAVASCRIPT UI DEVELOPER Carlos Real MD LAB BLOOD ORDERABLES Final Resul t [facility] Department [place] [address] * (ABNORMAL) CBC with auto differential (05/26/2024 12:05 AM JAVASCRIPT UI DEVELOPER) WBC 10.6(H) 3.8 - 9.9 K/cumm Hgb 12.5 11.9 - 15.5 g/dL [facility] Hct 39.2 35.6 - 45.5 % [facility] Plt 248 150 - 400 K/cumm [facility] MPV 9.7 9.1 - 12.3 fL [facility] RBC 4.32 3.90 - 5.20 M/cumm [facility] MCV 90.7 81.3 - 96.4 fL [facility] MCH 28.9 27.1 - 33.3 pg [facility] MCHC 31.9(L) 32.3 - 35.7 g/dL [facility] RDW CV 13.5 11.1 - 14.9 % [facility] RDW SD 45.1 35.7 - 48.1 fL [facility] NRBC abs 0.00 0.00 - 0.01 K/cumm [facility] Blood 05/26/2024 12:0 5 AM JAVASCRIPT UI DEVELOPER 05/26/2024 12:07 AM JAVASCRIPT UI DEVELOPER Carlos Real MD LAB BLOOD ORDERABLES Final Resul t Performing Organization Address [facility] de Phone Number [facility] [place] [address] * Phosphorus (05/26/2024 12:05 AM JAVASCRIPT UI DEVELOPER) Pathologist [facility] Phosphorus, pl 3.2 2.3 - 4.5 mg/dL Blood 05/26/2024 12:0 5 AM JAVASCRIPT UI DEVELOPER 05/26/2024 12:08 AM JAVASCRIPT UI DEVELOPER Carlos Real MD LAB BLOOD ORDERABLES Final Resul t Performing Organization Address [facility] de Phone Number [facility] Department [place] [address] * Magnesium (05/26/2024 12:05 AM JAVASCRIPT UI DEVELOPER) [facility] Magnesium 1.8 1.4 - 2.5 mg/dL Blood 05/26/2024 12:0 5 AM JAVASCRIPT UI DEVELOPER 05/26/2024 12:08 AM JAVASCRIPT UI DEVELOPER Carlos Real MD LAB BLOOD ORDERABLES Final Resul t Performing Organization Address [facility] de Phone Number [facility] Center [place] [address] * (ABNORMAL) Comprehensive metabolic panel (05/26/2024 12:05 AM JAVASCRIPT UI DEVELOPER) Pathologist [facility] Sodium 136 135 - 145 mmol/L Potassium, pl 4.2 3.3 - 4.9 mmol/L [facility] Chloride 101 97 - 110 mmol/L [facility] CO2 29 22 - 32 mmol/L [facility] Anion gap 6 2 - 15 mmol/L [facility] BUN 19 6 - 25 mg/dL [facility] Creatinine 0.67 0.60 - 1.10 mg/dL [facility] Glucose 164 70 - 199 mg/dL [facility] Comment: Interpretive Data Fasting glucose >/= [...] Calcium 9.4 8.5 - 10.3 mg/dL [facility] Bilirubin, total 0.4 0.1 - 1.2 mg/dL [facility] Protein, pl 7.1 6.5 - 8.5 g/dL [facility] Albumin 3.3(L) 3.5 - 5.0 g/dL [facility] Alk phos 65 40 - 130 Units/L [facility] ALT 17 7 - 45 Units/L [facility] AST 19 10 - 45 Units/L [facility] Blood 05/26/2024 12:0 5 AM JAVASCRIPT UI DEVELOPER 05/26/2024 12:08 AM JAVASCRIPT UI DEVELOPER Carlos Real MD LAB BLOOD ORDERABLES Final Resul t Performing Organization Address [facility] Co de Phone Number [facility] [place] [address] * POCT glucose (05/25/2024 7:44 PM JAVASCRIPT UI DEVELOPER) Glucose, POC 160 70 - 199 mg/dL Blood 05/25/2024 7:44 PM JAVASCRIPT UI DEVELOPER 05/25/2024 7:44 PM JAVASCRIPT UI DEVELOPER Carlos Real MD LAB POCT ORDERABLES - DEVICE Fin al Result Performing Organization Address [facility] Co de Phone Number [facility] Department [place] [address] * POCT glucose (05/25/2024 5:24 PM JAVASCRIPT UI DEVELOPER) Glucose, POC 152 70 - 199 mg/dL Blood 05/25/2024 5:24 PM JAVASCRIPT UI DEVELOPER 05/25/2024 5:24 PM JAVASCRIPT UI DEVELOPER Carlos Real MD LAB POCT ORDERABLES - DEVICE Fin al Result Performing Organization Address [facility] de Phone Number [facility] [place] [address] * POCT glucose (05/25/2024 11:37 AM JAVASCRIPT UI DEVELOPER) Glucose, POC 143 70 - 199 mg/dL Blood 05/25/2024 11:3 7 AM JAVASCRIPT UI DEVELOPER 05/25/2024 11:37 AM JAVASCRIPT UI DEVELOPER Carlos Real MD LAB POCT ORDERABLES - DEVICE Fin al Result Performing Organization Address [facility] Phone Number [facility] [place] [address] * POCT glucose (05/25/2024 7:27 AM JAVASCRIPT UI DEVELOPER) Glucose, POC 134 70 - 199 mg/dL Blood 05/25/2024 7:27 AM JAVASCRIPT UI DEVELOPER 05/25/2024 7:27 AM JAVASCRIPT UI DEVELOPER Carlos Real MD LAB POCT ORDERABLES - DEVICE Fin al Result Performing Organization Address [facility] de Phone Number [facility] [place] [address] * eGFR (05/25/2024 12:20 AM JAVASCRIPT UI DEVELOPER) eGFR >90 >=60 mL/min/1. 73 m2 Comment: [...] reviewed 2021. Blood 05/25/2024 12:2 0 AM JAVASCRIPT UI DEVELOPER 05/25/2024 12:43 AM JAVASCRIPT UI DEVELOPER us Naila Guzman NP LAB BLOOD ORDERABLES Final Result [facility] Department [place] [address] * Differential, auto (05/25/2024 12:20 AM JAVASCRIPT UI DEVELOPER) Neutrophil abs 5.9 1.5 - 6.5 K/cumm Imm gran abs 0.0 0.0 - 0.1 K/cumm [facility] Lymphocyte abs 2.4 0.8 - 3.3 K/cumm [facility] Monocyte abs 0.8 0.2 - 0.8 K/cumm [facility] Eosinophil abs 0.3 0.0 - 0.5 K/cumm [facility] Basophil abs 0.0 0.0 - 0.1 K/cumm [facility] Neutrophil pct 62.6 % [facility] Comment: Interpretive Data Percent cell count reference ranges are not reported, since discordance with absolute values may lead to misinterpretation of CBC data. Current Interpretive Data was last revised on 2017. Imm gran pct 0.3 % [facility] Comment: Interpretive Data Percent cell count reference ranges are not reported, since discordance with absolute values may lead to misinterpretation of CBC data. Current Interpretive Data was last revised on 2017. Lymphocyte pct 24.8 % [facility] Comment: Interpretive Data Percent cell count reference ranges are not reported, since discordance with absolute values may lead to misinterpretation of CBC data. Current Interpretive Data was last revised on 2017. Monocyte pct 8.8 % [facility] Comment: Interpretive Data Percent cell count reference ranges are not reported, since discordance with absolute values may lead to misinterpretation of CBC data. Current Interpretive Data was last revised on 2017. Eosinophil pct 3.2 % [facility] Comment: Interpretive Data Percent cell count reference ranges are not reported, since discordance with absolute values may lead to misinterpretation of CBC data. Current Interpretive Data was last revised on 2017. Basophil pct 0.3 % [facility] Comment: Interpretive Data Percent cell count reference ranges are not reported, since discordance with absolute values may lead to misinterpretation of CBC data. Current Interpretive Data was last revised on 2017. Blood 05/25/2024 12:2 0 AM JAVASCRIPT UI DEVELOPER 05/25/2024 12:29 AM JAVASCRIPT UI DEVELOPER us Naila Guzman NP LAB BLOOD ORDERABLES Final Result [facility] Department of Laboratories [place], [place] [id number] * (ABNORMAL) CBC with auto differential (05/25/2024 12:20 AM JAVASCRIPT UI DEVELOPER) WBC 9.5 3.8 - 9.9 K/cumm Hgb 12.8 11.9 - 15.5 g/dL [facility] Hct 40.0 35.6 - 45.5 % [facility] Plt 246 150 - 400 K/cumm [facility] MPV 9.8 9.1 - 12.3 fL [facility] RBC 4.42 3.90 - 5.20 M/cumm [facility] MCV 90.5 81.3 - 96.4 fL [facility] MCH 29.0 27.1 - 33.3 pg [facility] MCHC 32.0(L) 32.3 - 35.7 g/dL [facility] RDW CV 13.5 11.1 - 14.9 % [facility] RDW SD 45.3 35.7 - 48.1 fL [facility] NRBC abs 0.00 0.00 - 0.01 K/cumm [facility] Blood 05/25/2024 12:2 0 AM JAVASCRIPT UI DEVELOPER 05/25/2024 12:29 AM JAVASCRIPT UI DEVELOPER Naila Guzman NP LAB BLOOD ORDERABLES Final Result [facility] Center [place] [address] * Phosphorus (05/25/2024 12:20 AM JAVASCRIPT UI DEVELOPER) Pathologist [facility] Phosphorus, pl 3.1 2.3 - 4.5 mg/dL Blood 05/25/2024 12:2 0 AM JAVASCRIPT UI DEVELOPER 05/25/2024 12:29 AM JAVASCRIPT UI DEVELOPER Naila Guzman NP LAB BLOOD ORDERABLES Final Result Performing Organization Address [facility] Co de Phone Number [facility] [place] [address] * Magnesium (05/25/2024 12:20 AM JAVASCRIPT UI DEVELOPER) Magnesium 1.9 1.4 - 2.5 mg/dL Blood 05/25/2024 12:2 0 AM JAVASCRIPT UI DEVELOPER 05/25/2024 12:29 AM JAVASCRIPT UI DEVELOPER Naila Guzman NP LAB BLOOD ORDERABLES Final Result Performing Organization Address City/[facility] Co de Phone Number [facility] [place] [address] * (ABNORMAL) Comprehensive metabolic panel (05/25/2024 12:20 AM JAVASCRIPT UI DEVELOPER) Sodium 138 135 - 145 mmol/L Potassium, pl 4.4 3.3 - 4.9 mmol/L [facility] Chloride 101 97 - 110 mmol/L [facility] CO2 29 22 - 32 mmol/L [facility] Anion gap 8 2 - 15 mmol/L [facility] BUN 20 6 - 25 mg/dL [facility] Creatinine 0.69 0.60 - 1.10 mg/dL [facility] Glucose 156 70 - 199 mg/dL [facility] Comment: Interpretive Data Fasting glucose >/= [...] 2022. Calcium 9.4 8.5 - 10.3 mg/dL [facility] Bilirubin, total 0.5 0.1 - 1.2 mg/dL [facility] Protein, pl 7.4 6.5 - 8.5 g/dL [facility] Albumin 3.4(L) 3.5 - 5.0 g/dL [facility] Alk phos 67 40 - 130 Units/L [facility] ALT 18 7 - 45 Units/L [facility] AST 16 10 - 45 Units/L [facility] Blood 05/25/2024 12:2 0 AM JAVASCRIPT UI DEVELOPER 05/25/2024 12:29 AM JAVASCRIPT UI DEVELOPER us Naila Guzman NP LAB BLOOD ORDERABLES Final Result [facility] Department [place] [address] * POCT glucose (05/24/2024 8:13 PM JAVASCRIPT UI DEVELOPER) [facility] Glucose, POC 171 70 - 199 mg/dL Blood 05/24/2024 8:13 PM JAVASCRIPT UI DEVELOPER 05/24/2024 8:13 PM JAVASCRIPT UI DEVELOPER Carlos Real MD LAB POCT ORDERABLES - DEVICE Fin al Result Performing Organization Address [facility] Co de Phone Number [facility] [place] [address] * POCT glucose (05/24/2024 5:17 PM JAVASCRIPT UI DEVELOPER) Glucose, POC 133 70 - 199 mg/dL Blood 05/24/2024 5:17 PM JAVASCRIPT UI DEVELOPER 05/24/2024 5:17 PM JAVASCRIPT UI DEVELOPER Carlos Real MD LAB POCT ORDERABLES - DEVICE Fin al Result Performing Organization Address [facility] de Phone Number [facility] [place] [address] * POCT glucose (05/24/2024 12:49 PM JAVASCRIPT UI DEVELOPER) Glucose, POC 180 70 - 199 mg/dL Blood 05/24/2024 12:4 9 PM JAVASCRIPT UI DEVELOPER 05/24/2024 12:49 PM JAVASCRIPT UI DEVELOPER Carlos Real MD LAB POCT ORDERABLES - DEVICE Fin al Result Performing Organization Address [facility] de Phone Number [facility] [place] [address] * POCT glucose (05/24/2024 9:22 AM JAVASCRIPT UI DEVELOPER) Glucose, POC 139 70 - 199 mg/dL Blood 05/24/2024 9:22 AM JAVASCRIPT UI DEVELOPER 05/24/2024 9:22 AM JAVASCRIPT UI DEVELOPER Carlos Real MD LAB POCT ORDERABLES - DEVICE Fin al Result Performing Organization Address [facility] Co de Phone Number [facility] [place] [address] * Herpes Simplex Virus (HSV) PCR Oral (05/24/2024 8:47 AM JAVASCRIPT UI DEVELOPER) [facility] HSV DNA Not Detected Not Detected [facility] Comment: Interpretive Data This assay is performed [...] reviewed on 08/21/2018 Oral 05/24/2024 8:47 AM JAVASCRIPT UI DEVELOPER 05/24/2024 9:24 AM JAVASCRIPT UI DEVELOPER Narrative MARY JANE [facility] - 05/24/2024 4:28 PM JAVASCRIPT UI DEVELOPER Oral ulcer swab Naila Guzman NP LAB MICROBIOLOGY - GENERAL ORDERABLES Final Result [facility] Department [place] [address] [facility] * POCT glucose (05/24/2024 8:22 AM JAVASCRIPT UI DEVELOPER) [facility] Glucose, POC 132 70 - 199 mg/dL Blood 05/24/2024 8:22 AM JAVASCRIPT UI DEVELOPER 05/24/2024 8:22 AM JAVASCRIPT UI DEVELOPER Carlos Real MD LAB POCT ORDERABLES - DEVICE Fin al Result [facility] Department [place] [address] * eGFR (05/24/2024 12:29 AM JAVASCRIPT UI DEVELOPER) [facility] eGFR 87 >=60 mL/min/1. 73 m2 Comment: [...] reviewed 2021. Blood 05/24/2024 12:2 9 AM JAVASCRIPT UI DEVELOPER 05/24/2024 12:54 AM JAVASCRIPT UI DEVELOPER Naila Guzman OBSTETRICS TEACHER LAB BLOOD ORDERABLES Final Result [facility] Department [place] [address] * (ABNORMAL) Differential, auto (05/24/2024 12:29 AM JAVASCRIPT UI DEVELOPER) Neutrophil abs 5.3 1.5 - 6.5 K/cumm Imm gran abs 0.0 0.0 - 0.1 K/cumm [facility] Lymphocyte abs 3.0 0.8 - 3.3 K/cumm [facility] Monocyte abs 0.9(H) 0.2 - 0.8 K/cumm [facility] Eosinophil abs 0.3 0.0 - 0.5 K/cumm [facility] Basophil abs 0.0 0.0 - 0.1 K/cumm [facility] Neutrophil pct 55.8 % [facility] Comment: Interpretive Data Percent cell count reference ranges are not reported, since discordance with absolute values may lead to misinterpretation of CBC data. Current Interpretive Data was last revised on 2017. Imm gran pct 0.4 % [facility] Comment: Interpretive Data Percent cell count reference ranges are not reported, since discordance with absolute values may lead to misinterpretation of CBC data. Current Interpretive Data was last revised on 2017. Lymphocyte pct 31.4 % [facility] Comment: Interpretive Data Percent cell count reference ranges are not reported, since discordance with absolute values may lead to misinterpretation of CBC data. Current Interpretive Data was last revised on 2017. Monocyte pct 9.0 % [facility] Comment: Interpretive Data Percent cell count reference ranges are not reported, since discordance with absolute values may lead to misinterpretation of CBC data. Current Interpretive Data was last revised on 2017. Eosinophil pct 3.0 % [facility] Comment: Interpretive Data Percent cell count reference ranges are not reported, since discordance with absolute values may lead to misinterpretation of CBC data. Current Interpretive Data was last revised on 2017. Basophil pct 0.4 % [facility] Comment: Interpretive Data Percent cell count reference ranges are not reported, since discordance with absolute values may lead to misinterpretation of CBC data. Current Interpretive Data was last revised on 2017. Blood 05/24/2024 12:2 9 AM JAVASCRIPT UI DEVELOPER 05/24/2024 12:54 AM JAVASCRIPT UI DEVELOPER us Naila Guzman NP LAB BLOOD ORDERABLES Final Result [facility] Department [place] [address] * CBC with auto differential (05/24/2024 12:29 AM JAVASCRIPT UI DEVELOPER) WBC 9.5 3.8 - 9.9 K/cumm Hgb 12.6 11.9 - 15.5 g/dL [facility] Hct 39.0 35.6 - 45.5 % [facility] Plt 223 150 - 400 K/cumm [facility] MPV 9.6 9.1 - 12.3 fL [facility] RBC 4.23 3.90 - 5.20 M/cumm [facility] MCV 92.2 81.3 - 96.4 fL [facility] MCH 29.8 27.1 - 33.3 pg [facility] MCHC 32.3 32.3 - 35.7 g/dL [facility] RDW CV 13.7 11.1 - 14.9 % [facility] RDW SD 46.5 35.7 - 48.1 fL [facility] NRBC abs 0.00 0.00 - 0.01 K/cumm [facility] Blood 05/24/2024 12:2 9 AM JAVASCRIPT UI DEVELOPER 05/24/2024 12:54 AM JAVASCRIPT UI DEVELOPER us Naila Guzman NP LAB BLOOD ORDERABLES Final Result [facility] [place] [address] * Phosphorus (05/24/2024 12:29 AM JAVASCRIPT UI DEVELOPER) Phosphorus, pl 3.6 2.3 - 4.5 mg/dL Blood 05/24/2024 12:2 9 AM JAVASCRIPT UI DEVELOPER 05/24/2024 12:54 AM JAVASCRIPT UI DEVELOPER Naila Guzman NP LAB BLOOD ORDERABLES Final Result Performing Organization Address City/[facility]/ZIP Co de Phone Number [facility] Department [place] [address] * Magnesium (05/24/2024 12:29 AM JAVASCRIPT UI DEVELOPER) Magnesium 1.9 1.4 - 2.5 mg/dL Blood 05/24/2024 12:2 9 AM JAVASCRIPT UI DEVELOPER 05/24/2024 12:54 AM JAVASCRIPT UI DEVELOPER Naila Guzman NP LAB BLOOD ORDERABLES Final Result Performing Organization Address City/[facility]/ZIP Co de Phone Number [facility] Department [place] [address] * (ABNORMAL) Comprehensive metabolic panel (05/24/2024 12:29 AM JAVASCRIPT UI DEVELOPER) Pathologist [facility] Sodium 139 135 - 145 mmol/L Potassium, pl 4.3 3.3 - 4.9 mmol/L [facility] Chloride 103 97 - 110 mmol/L [facility] CO2 29 22 - 32 mmol/L [facility] Anion gap 7 2 - 15 mmol/L [facility] BUN 19 6 - 25 mg/dL [facility] Creatinine 0.75 0.60 - 1.10 mg/dL [facility] Glucose 157 70 - 199 mg/dL [facility] Comment: Interpretive Data Fasting glucose >/= [...] 2022. Calcium 9.2 8.5 - 10.3 mg/dL [facility] Bilirubin, total 0.4 0.1 - 1.2 mg/dL [facility] Protein, pl 7.1 6.5 - 8.5 g/dL [facility] Albumin 3.3(L) 3.5 - 5.0 g/dL [facility] Alk phos 65 40 - 130 Units/L [facility] ALT 18 7 - 45 Units/L [facility] AST 17 10 - 45 Units/L [facility] Blood 05/24/2024 12:2 9 AM JAVASCRIPT UI DEVELOPER 05/24/2024 12:54 AM JAVASCRIPT UI DEVELOPER us Naila Guzman NP LAB BLOOD ORDERABLES Final Result [facility] [place] [address] * POCT glucose (05/23/2024 8:16 PM JAVASCRIPT UI DEVELOPER) Glucose, POC 145 70 - 199 mg/dL Blood 05/23/2024 8:16 PM JAVASCRIPT UI DEVELOPER 05/23/2024 8:16 PM JAVASCRIPT UI DEVELOPER Carlos Real MD LAB POCT ORDERABLES - DEVICE Fin al Result Performing Organization Address [facility] de Phone Number [facility] [place] [address] * POCT glucose (05/23/2024 6:14 PM JAVASCRIPT UI DEVELOPER) Glucose, POC 181 70 - 199 mg/dL Blood 05/23/2024 6:14 PM JAVASCRIPT UI DEVELOPER 05/23/2024 6:14 PM JAVASCRIPT UI DEVELOPER Carlos Real MD LAB POCT ORDERABLES - DEVICE Fin al Result Performing Organization Address [facility] de Phone Number [facility] [place] [address] * POCT glucose (05/23/2024 12:17 PM JAVASCRIPT UI DEVELOPER) Glucose, POC 159 70 - 199 mg/dL Blood 05/23/2024 12:1 7 PM JAVASCRIPT UI DEVELOPER 05/23/2024 12:17 PM JAVASCRIPT UI DEVELOPER Cem Knapp MD LAB POCT ORDERABLES - DEVIC E Final Result Performing Organization Address [facility] [place] [address] * US Vein Duplex Lower Extremity Bilateral Complete (05/23/2024 11:45 AM JAVASCRIPT UI DEVELOPER) LV EF % CONS SCIMAGE Anatomical Region Laterality Modality Vascular Bilateral Ultrasound 05/23/2024 11:1 2 AM JAVASCRIPT UI DEVELOPER Narrative 05/23/2024 9:43 PM JAVASCRIPT UI DEVELOPER [facility] - Department of Vascular Surgery, Vascular Laboratory [address] [place] [id number] Lower Extremity Venous Ultrasound Report Patient Name: MOHSEN MARQUES M : 1955 (68y 11m) Study Date: 05/23/2024 11:12:03 AM Gender: F Tech: VELVET Location: [id number] Ref Provider: CARLOS REAL Quality: Adequate Order Provider: CARLOS REAL PROCEDURES: Vascular Report: Venous Duplex imaging was performed bilaterally in the lower extremities. The common femoral, femoral, popliteal, posterior tibial, peroneal veins were evaluated for patency, spontaneity and phasicity with Doppler, compression and augmentation maneuvers. Great saphenous vein proximal at the junction was evaluated with compression maneuvers. INDICATIONS: Localized edema. FINDINGS: Performing Director Of Philanthropy: Marlys Castillo RVT. Bilateral: Venous Doppler signals in the [...] Vu Obregon MD FACS 05/23/2024 9:42:19 PM JAVASCRIPT UI DEVELOPER Procedure Note Vu Obregon MD - 05/23/2024 [facility] - Department of Vascular Surgery,Vascular Laboratory [address] [place] [address] Lower Extremity Venous Ultrasound Report Patient Name: MOHSEN MARQUES M : 1955 (68y 11m) Study Date: 05/23/2024 11:12:03 AM Gender: F Tech: VELVET Location: [id number] Ref Provider: CARLOS REAL Quality: Adequate Order Provider: CARLOS REAL PROCEDURES: Vascular Report: Venous Duplex imaging was performed bilaterally in the lower extremities.The common femoral, femoral, popliteal, posterior tibial, peroneal veins wereevaluated for patency, spontaneity and phasicity with Doppler, compression and augmentationmaneuvers. Great saphenous vein proximal at the junction was evaluated with compressionmaneuvers. INDICATIONS: Localized edema. FINDINGS: Performing Director Of Philanthropy: Marlys Castillo RVT. Bilateral: Venous Doppler signals in the [...] Vu Obregon MD FACS 05/23/2024 9:42:19 PM JAVASCRIPT UI DEVELOPER us Carlos Real MD [facility] PROCEDURES Final Result * (ABNORMAL) POCT glucose (05/23/2024 8:16 AM JAVASCRIPT UI DEVELOPER) Pathologist [facility] Glucose, POC 204(H) 70 - 199 mg/dL Blood 05/23/2024 8:16 AM JAVASCRIPT UI DEVELOPER 05/23/2024 8:16 AM JAVASCRIPT UI DEVELOPER Cem Knapp MD LAB POCT ORDERABLES - DEVIC E Final Result [facility] Department [place] [address] * (ABNORMAL) Differential, auto (05/23/2024 2:30 AM JAVASCRIPT UI DEVELOPER) Pathologist [facility] Neutrophil abs 8.0(H) 1.5 - 6.5 K/cumm Imm gran abs 0.1 0.0 - 0.1 K/cumm [facility] Lymphocyte abs 2.6 0.8 - 3.3 K/cumm [facility] Monocyte abs 1.0(H) 0.2 - 0.8 K/cumm [facility] Eosinophil abs 0.3 0.0 - 0.5 K/cumm [facility] Basophil abs 0.0 0.0 - 0.1 K/cumm [facility] Neutrophil pct 66.5 % [facility] Comment: Interpretive Data Percent cell count reference ranges are not reported, since discordance with absolute values may lead to misinterpretation of CBC data. Current Interpretive Data was last revised on 2017. Imm gran pct 0.5 % [facility] Comment: Interpretive Data Percent cell count reference ranges are not reported, since discordance with absolute values may lead to misinterpretation of CBC data. Current Interpretive Data was last revised on 2017. Lymphocyte pct 21.9 % [facility] Comment: Interpretive Data Percent cell count reference ranges are not reported, since discordance with absolute values may lead to misinterpretation of CBC data. Current Interpretive Data was last revised on 2017. Monocyte pct 8.5 % [facility] Comment: Interpretive Data Percent cell count reference ranges are not reported, since discordance with absolute values may lead to misinterpretation of CBC data. Current Interpretive Data was last revised on 2017. Eosinophil pct 2.3 % [facility] Comment: Interpretive Data Percent cell count reference ranges are not reported, since discordance with absolute values may lead to misinterpretation of CBC data. Current Interpretive Data was last revised on 2017. Basophil pct 0.3 % [facility] Comment: Interpretive Data Percent cell count reference ranges are not reported, since discordance with absolute values may lead to misinterpretation of CBC data. Current Interpretive Data was last revised on 2017. Blood 05/23/2024 2:30 AM JAVASCRIPT UI DEVELOPER 05/23/2024 1:03 AM JAVASCRIPT UI DEVELOPER us Naila Guzman NP LAB BLOOD ORDERABLES Final Result [facility] Department [place] [address] * (ABNORMAL) CBC with auto differential (05/23/2024 2:30 AM JAVASCRIPT UI DEVELOPER) [facility] WBC 11.9(H) 3.8 - 9.9 K/cumm Hgb 12.8 11.9 - 15.5 g/dL [facility] Hct 39.6 35.6 - 45.5 % [facility] Plt 254 150 - 400 K/cumm [facility] MPV 9.7 9.1 - 12.3 fL [facility] RBC 4.43 3.90 - 5.20 M/cumm [facility] MCV 89.4 81.3 - 96.4 fL [facility] MCH 28.9 27.1 - 33.3 pg [facility] MCHC 32.3 32.3 - 35.7 g/dL [facility] RDW CV 13.7 11.1 - 14.9 % [facility] RDW SD 44.6 35.7 - 48.1 fL [facility] NRBC abs 0.00 0.00 - 0.01 K/cumm [facility] Blood 05/23/2024 2:30 AM JAVASCRIPT UI DEVELOPER 05/23/2024 1:03 AM JAVASCRIPT UI DEVELOPER us Naila Guzman NP LAB BLOOD ORDERABLES Final Result [facility] Department [place] [address] * eGFR (05/23/2024 12:42 AM JAVASCRIPT UI DEVELOPER) [facility] eGFR 84 >=60 mL/min/1. 73 m2 Comment: [...] reviewed 2021. Blood 05/23/2024 12:4 2 AM JAVASCRIPT UI DEVELOPER 05/23/2024 1:02 AM JAVASCRIPT UI DEVELOPER Naila Guzman NP LAB BLOOD ORDERABLES Final Result Performing Organization Address [facility]/ZIP Co de Phone Number [facility] Department [place] [address] * Type and screen (05/23/2024 12:42 AM JAVASCRIPT UI DEVELOPER) ABO Rh O Positive Dilcia, indirect Negative [facility] Blood 05/23/2024 12:4 2 AM JAVASCRIPT UI DEVELOPER 05/23/2024 12:52 AM JAVASCRIPT UI DEVELOPER Narrative [facility] - 05/23/2024 1:53 AM JAVASCRIPT UI DEVELOPER Has the patient had Daratumumab or Isatuximab in the past 6 months?->Unknown Naila Guzman NP LAB BLOOD BANK TEST ORDERA BLES Final Result Performing Organization Address [facility] Co de Phone Number [facility] Department [place] [address] * Uric acid (05/23/2024 12:42 AM JAVASCRIPT UI DEVELOPER) Uric acid 5.5 2.5 - 7.0 mg/dL Blood 05/23/2024 12:4 2 AM JAVASCRIPT UI DEVELOPER 05/23/2024 1:02 AM JAVASCRIPT UI DEVELOPER Narrative [facility] - 05/23/2024 1:34 AM JAVASCRIPT UI DEVELOPER Monday and only. Morning draw. . Naila Guzman NP LAB BLOOD ORDERABLES Final Result Performing Organization Address City/[facility]/[place] [address] * Phosphorus (05/23/2024 12:42 AM JAVASCRIPT UI DEVELOPER) Phosphorus, pl 4.4 2.3 - 4.5 mg/dL Blood 05/23/2024 12:4 2 AM JAVASCRIPT UI DEVELOPER 05/23/2024 1:02 AM JAVASCRIPT UI DEVELOPER us Naila Guzman NP LAB BLOOD ORDERABLES Final Result Performing Organization Address [facility] [place] [address] * Magnesium (05/23/2024 12:42 AM JAVASCRIPT UI DEVELOPER) Pathologist [facility] Magnesium 1.9 1.4 - 2.5 mg/dL Blood 05/23/2024 12:4 2 AM JAVASCRIPT UI DEVELOPER 05/23/2024 1:02 AM JAVASCRIPT UI DEVELOPER us Naila Guzman NP LAB BLOOD ORDERABLES Final Result Performing Organization Address [facility] [place] [address] * Lactate dehydrogenase (LD) (05/23/2024 12:42 AM JAVASCRIPT UI DEVELOPER) [facility] Lactate dehydrogenase (LDH) 247 100 - 250 Units/L Blood 05/23/2024 12:4 2 AM JAVASCRIPT UI DEVELOPER 05/23/2024 1:02 AM JAVASCRIPT UI DEVELOPER Narrative [facility] - 05/23/2024 1:34 AM JAVASCRIPT UI DEVELOPER Monday and only. Morning draw. us Naila Guzman NP LAB BLOOD ORDERABLES Final Result Performing Organization Address City/[facility]/[place] [address] * Comprehensive metabolic panel (05/23/2024 12:42 AM JAVASCRIPT UI DEVELOPER) Sodium 136 135 - 145 mmol/L Potassium, pl 4.3 3.3 - 4.9 mmol/L [facility] Chloride 101 97 - 110 mmol/L [facility] CO2 29 22 - 32 mmol/L [facility] Anion gap 6 2 - 15 mmol/L [facility] BUN 18 6 - 25 mg/dL [facility] Creatinine 0.77 0.60 - 1.10 mg/dL [facility] Glucose 194 70 - 199 mg/dL [facility] Comment: Interpretive Data Fasting glucose >/= [...] 2022. Calcium 9.5 8.5 - 10.3 mg/dL [facility] Bilirubin, total 0.5 0.1 - 1.2 mg/dL [facility] Protein, pl 7.4 6.5 - 8.5 g/dL [facility] Albumin 3.5 3.5 - 5.0 g/dL [facility] Alk phos 71 40 - 130 Units/L [facility] ALT 19 7 - 45 Units/L [facility] AST 22 10 - 45 Units/L [facility] Blood 05/23/2024 12:4 2 AM JAVASCRIPT UI DEVELOPER 05/23/2024 1:02 AM JAVASCRIPT UI DEVELOPER us Naila Guzman OBSTETRICS TEACHER LAB BLOOD ORDERABLES Final Result [facility] Department [place] [address] * (ABNORMAL) POCT glucose (05/22/2024 8:56 PM JAVASCRIPT UI DEVELOPER) Glucose, POC 210(H) 70 - 199 mg/dL Blood 05/22/2024 8:56 PM JAVASCRIPT UI DEVELOPER 05/22/2024 8:56 PM JAVASCRIPT UI DEVELOPER Cem Knapp MD LAB POCT ORDERABLES - DEVIC E Final Result Performing Organization Address [facility] Co de Phone Number [facility] [place] [address] * POCT glucose (05/22/2024 6:09 PM JAVASCRIPT UI DEVELOPER) Glucose, POC 142 70 - 199 mg/dL Blood 05/22/2024 6:09 PM JAVASCRIPT UI DEVELOPER 05/22/2024 6:09 PM JAVASCRIPT UI DEVELOPER Leo Henry MD LAB POCT ORDERABLES - NILESH CE Final Result Performing Organization Address [facility] de Phone Number [facility] [place] [address] * POCT glucose (05/22/2024 4:26 PM JAVASCRIPT UI DEVELOPER) Glucose, POC 133 70 - 199 mg/dL Blood 05/22/2024 4:26 PM JAVASCRIPT UI DEVELOPER 05/22/2024 4:26 PM JAVASCRIPT UI DEVELOPER Leo Henry MD LAB POCT ORDERABLES - NILESH CE Final Result Performing Organization Address [facility] de Phone Number [facility] [place] [address] * CT Abdomen Pelvis W Contrast (05/22/2024 2:32 PM JAVASCRIPT UI DEVELOPER) Anatomical Region Laterality Modality Body N/A Computed Tomogra phy 05/22/2024 4:35 PM JAVASCRIPT UI DEVELOPER Impressions 05/22/2024 5:16 PM JAVASCRIPT UI DEVELOPER No acute findings within the abdomen or pelvis. Dictated by: Yesi Mendes M.D. The radiology attending physician has personally reviewed this study, and had reviewed and/or edited this written report and agrees with it. Electronically signed by: Kelli Palmer M.D. Narrative 05/22/2024 5:16 PM JAVASCRIPT UI DEVELOPER EXAMINATION: Computed tomography of the abdomen and [...] sult * POCT glucose (05/22/2024 12:58 PM JAVASCRIPT UI DEVELOPER) Glucose, POC 177 70 - 199 mg/dL Blood 05/22/2024 12:5 8 PM JAVASCRIPT UI DEVELOPER 05/22/2024 12:58 PM JAVASCRIPT UI DEVELOPER Leo Henry MD LAB POCT ORDERABLES - NILESH CE Final Result [facility] Department [place] [address] * (ABNORMAL) POCT glucose (05/22/2024 9:29 AM JAVASCRIPT UI DEVELOPER) Glucose, POC 291(H) 70 - 199 mg/dL Blood 05/22/2024 9:29 AM JAVASCRIPT UI DEVELOPER 05/22/2024 9:29 AM JAVASCRIPT UI DEVELOPER Leo Henry MD LAB POCT ORDERABLES - NILESH CE Final Result Performing Organization Address [facility] Co de Phone Number [facility] Department [place] [address] * POCT glucose (05/22/2024 6:54 AM JAVASCRIPT UI DEVELOPER) Glucose, POC 142 70 - 199 mg/dL Blood 05/22/2024 6:54 AM JAVASCRIPT UI DEVELOPER 05/22/2024 6:54 AM JAVASCRIPT UI DEVELOPER Jimmie Zavala MD LAB POCT ORDERABLES - DEVICE Fin al Result Performing Organization Address [facility] de Phone Number [facility] Department [place] [address] * CT Chest PE (CTA) W Contrast (05/22/2024 1:31 AM JAVASCRIPT UI DEVELOPER) Anatomical Region Laterality Modality Body N/A Computed Tomogra phy 05/22/2024 2:38 AM JAVASCRIPT UI DEVELOPER Impressions 05/22/2024 9:12 AM JAVASCRIPT UI DEVELOPER No pulmonary embolism. Dictated by: Miguel Milligan MD The radiology attending physician has personally reviewed this study, and had reviewed and/or edited this written report and agrees with it. Electronically signed by: Jayson Rockwell M.D. Narrative 05/22/2024 9:12 AM JAVASCRIPT UI DEVELOPER EXAMINATION: CT CHEST PE (CTA) W CONTRAST [...] by: Jayson Rockwell M.D. Angeline Soler MD IMG CT PROCEDURES Deann l Result * D-dimer, quantitative (05/22/2024 12:24 AM JAVASCRIPT UI DEVELOPER) D-Dimer 414 <=499 ng/mL FEU Comment: Interpretive [...] on 2019. Blood 05/22/2024 12:2 4 AM JAVASCRIPT UI DEVELOPER 05/22/2024 12:42 AM JAVASCRIPT UI DEVELOPER Angeline Soler MD LAB BLOOD ORDERABLES F inal Result [facility] [place] [address] * Troponin I high-sensitivity 2-hour (05/21/2024 11:09 PM JAVASCRIPT UI DEVELOPER) Trop I hs 5 <=17 ng/L Comment: Interpretive Data For further hscTnI resources including the diagnostic algorithm and an aid in interpretation, copy and paste this link: https://bjhlab.testcatalog.org/show/hsTrop-1 Current Interpretive Data last revised 2019. Trop I hs delta See Comment ng/L [facility] Comment:Inappropriate collec tion time to report a delta. Trop I hs pct delta See Comment % [facility] Comment:Inappropriate collec tion time to report a delta. Trop I hs interp See Comment [facility] Comment:Inappropriate collec tion time to report a delta. Blood 05/21/2024 11:0 9 PM JAVASCRIPT UI DEVELOPER 05/21/2024 11:26 PM JAVASCRIPT UI DEVELOPER us Cira Castro MD LAB BLOOD ORDERABL ES Final Result [facility] Department [place] [address] * (ABNORMAL) Urinalysis reflex to microscopic and culture Urine (05/21/2024 11:09 PM JAVASCRIPT UI DEVELOPER) Color, ur Yellow Yellow Clarity, ur Clear Clear [facility] Specific gravity, ur 1.025 1.003 - 1.030 [facility] pH, urine 6.0 [facility] Comment: Interpretive Data U rine pH is affected by diet, medications, systemic acid-base disturbances, and renal tubular function. pH may affect urinary stone formation. For example, urine pH below 6.0 may help reduce the tendency for calcium phosphate stones and pH greater than 6.0 may reduce the tendency for uric acid stone formation. Source: [facility] backstitch Current Interpretive Data was last revised on 2017 Protein, ur ql 1+(A) Negative [facility] Glucose, ur ql Negative Negative [facility] Ketones, ur Negative Negative [facility] Bilirubin, ur Negative Negative [facility] Blood, ur Trace(A) Negative [facility] Urobilinogen, ur <2.0 <2.0 mg/dL [facility] Nitrite, ur Positive(A) Negative [facility] Leukocyte esterase, ur 1+(A) Negative [facility] UA reflex comment Reflex to microscopic UA will be performed. [facility] Urine 05/21/2024 11:0 9 PM JAVASCRIPT UI DEVELOPER 05/21/2024 11:22 PM JAVASCRIPT UI DEVELOPER Angeline Soler MD LAB MICROBIOLOGY - GEN ERAL ORDERABLES Final Result [facility] Department [place] [address] * Respiratory pathogen panel Nasopharyngeal (05/21/2024 11:09 PM JAVASCRIPT UI DEVELOPER) Influenza A RNA Not Detected Not Detected Influenza B RNA Not Detected Not Detected [facility] RSV RNA Not Detected Not Detected [facility] COVID-19 RNA Not Detected Not Detected [facility] Coronavirus 229E RNA Not Detected Not Detected [facility] Coronavirus HKU1 RNA Not Detected Not Detected [facility] Coronavirus NL63 RNA Not Detected Not Detected [facility] Coronavirus OC43 RNA Not Detected Not Detected [facility] Adenovirus DNA Not Detected Not Detected [facility] Metapneumovirus RNA Not Detected Not Detected [facility] Rhinovirus/Enterov irus RNA Not Detected Not Detected [facility] Parainfluenza 1 RNA Not Detected Not Detected [facility] Parainfluenza 2 RNA Not Detected Not Detected [facility] Parainfluenza 3 RNA Not Detected Not Detected [facility] Parainfluenza 4 RNA Not Detected Not Detected [facility] B. pertussis DNA Not Detected Not Detected [facility] B. parapertussis DNA Not Detected Not Detected [facility] C. pneumoniae DNA Not Detected Not Detected [facility] M. pneumoniae DNA Not Detected Not Detected [facility] Nasopharyngeal 05/21/2024 11 :09 PM JAVASCRIPT UI DEVELOPER 05/22/2024 4:48 AM JAVASCRIPT UI DEVELOPER Narrative [facility] - 05/22/2024 5:55 AM JAVASCRIPT UI DEVELOPER Is the Patient experiencing symptoms consistent with COVID?->No Surveillance testing for transplant patient?->No Interpretive Data The Disrupt6Array Respiratory Panel (RP2.1) assay is a multiplexed [...] assay has FDA clearance for testing of OBSTETRICS TEACHER swabs. The performance of additional specimen types has been assessed by the performing laboratory. The performance characteristics of this assay have been determined by [facility] Molecular Infectious Disease Laboratory. Current interpretive data was last revised on 22. Angeline Soler MD LAB MICROBIOLOGY - GEN ERAL ORDERABLES Final Result [facility] Department [place] [address] * (ABNORMAL) Urinalysis, microscopic only (05/21/2024 11:09 PM JAVASCRIPT UI DEVELOPER) WBC, ur 11-20(A) 0 - 5 /HPF RBC, ur 3-5(A) 0 - 2 /HPF [facility] Epithelial cells, squamous, ur 1-5 0 - 5 /HPF [facility] Bacteria, ur 3+(A) [facility] Yeast, ur Trace(A) [facility] Mucous, ur Present(A) [facility] Culture Reflex Comment Reflex to urine culture will be performed. [facility] Urine 05/21/2024 11:0 9 PM JAVASCRIPT UI DEVELOPER 05/21/2024 11:21 PM JAVASCRIPT UI DEVELOPER Angeline Soler MD LAB URINE ORDERABLES F inal Result [facility] Department [place] [address] * (ABNORMAL) Urine culture Urine (05/21/2024 11:09 PM JAVASCRIPT UI DEVELOPER) Report Amended Report - Complete: Greater than or equal to 100,000 colonies/mL of Escherichia coli Plus growth of clinically insignificant bacterial yesenia. (.) Organism ESCHERICHIA COLI [facility] Organism PLUS GROWTH OF CLINICALLY INSIGNIFICANT YESENIA. [facility] Urine 05/21/2024 11:0 9 PM JAVASCRIPT UI DEVELOPER 05/22/2024 2:40 AM JAVASCRIPT UI DEVELOPER Narrative [facility] - 05/25/2024 10:36 AM JAVASCRIPT UI DEVELOPER Urine culture reflexed based upon urinalysis results. Testing performed by [facility] Microbiology [facility] ([phone]) Organism Antibiotic Method Susceptibility Escherichia coli Ampicillin [...] GEN ERAL ORDERABLES Edited Result - Final [facility] Department [place] [address] * POCT glucose (05/21/2024 8:55 PM JAVASCRIPT UI DEVELOPER) Glucose, POC 139 70 - 199 mg/dL Blood 05/21/2024 8:55 PM JAVASCRIPT UI DEVELOPER 05/21/2024 8:55 PM JAVASCRIPT UI DEVELOPER Notinfile Unknown LAB POCT ORDERABLES - DEVICE F inal Result Performing Organization Address [facility] Co de Phone Number [facility] Department [place] [address] * Troponin I high-sensitivity 4-hour (05/21/2024 7:26 PM JAVASCRIPT UI DEVELOPER) Trop I hs 4 <=17 ng/L Comment: Interpretive Data For further hscTnI resources including the diagnostic algorithm and an aid in interpretation, copy and paste this link: https://bjhlab.testcatalog.org/show/hsTrop-1 Current Interpretive Data last revised 2019. Trop I hs delta -1 ng/L [facility] Trop I hs interp Insignificant [facility] Blood 05/21/2024 7:26 PM JAVASCRIPT UI DEVELOPER 05/21/2024 7:37 PM JAVASCRIPT UI DEVELOPER Cira Castro MD LAB BLOOD ORDERABL ES Final Result Performing Organization Address [facility] Co de Phone Number [facility] Department [place] [address] * Troponin I high-sensitivity series (baseline, 2hr, 4hr, 6hr) (05/21/2024 4:20 PM JAVASCRIPT UI DEVELOPER) Trop I hs 5 <=17 ng/L Comment: Interpretive Data For further hscTnI resources including the diagnostic algorithm and an aid in interpretation, copy and paste this link: https://bjhlab.testcatalog.org/show/hsTrop-1 Current Interpretive Data last revised 2019. Blood 05/21/2024 4:20 PM JAVASCRIPT UI DEVELOPER 05/21/2024 4:50 PM JAVASCRIPT UI DEVELOPER Jimmie Zavala MD LAB BLOOD ORDERABLES Final Resul t Performing Organization Address [facility] de Phone Number [facility] Department [place] [address] * eGFR (05/21/2024 4:20 PM JAVASCRIPT UI DEVELOPER) eGFR >90 >=60 mL/min/1. 73 m2 Comment: [...] last reviewed 2021. Blood 05/21/2024 4:20 PM JAVASCRIPT UI DEVELOPER 05/21/2024 4:50 PM JAVASCRIPT UI DEVELOPER us Jimmie Zavala MD LAB BLOOD ORDERABLES Final Resul t [facility] Department [place] [address] * (ABNORMAL) Differential, auto (05/21/2024 4:20 PM JAVASCRIPT UI DEVELOPER) Neutrophil abs 8.0(H) 1.5 - 6.5 K/cumm Imm gran abs 0.0 0.0 - 0.1 K/cumm [facility] Lymphocyte abs 2.4 0.8 - 3.3 K/cumm [facility] Monocyte abs 0.8 0.2 - 0.8 K/cumm [facility] Eosinophil abs 0.2 0.0 - 0.5 K/cumm [facility] Basophil abs 0.0 0.0 - 0.1 K/cumm [facility] Neutrophil pct 69.4 % [facility] Comment: Interpretive Data Percent cell count reference ranges are not reported, since discordance with absolute values may lead to misinterpretation of CBC data. Current Interpretive Data was last revised on 2017. Imm gran pct 0.4 % [facility] Comment: Interpretive Data Percent cell count reference ranges are not reported, since discordance with absolute values may lead to misinterpretation of CBC data. Current Interpretive Data was last revised on 2017. Lymphocyte pct 21.4 % [facility] Comment: Interpretive Data Percent cell count reference ranges are not reported, since discordance with absolute values may lead to misinterpretation of CBC data. Current Interpretive Data was last revised on 2017. Monocyte pct 6.7 % [facility] Comment: Interpretive Data Percent cell count reference ranges are not reported, since discordance with absolute values may lead to misinterpretation of CBC data. Current Interpretive Data was last revised on 2017. Eosinophil pct 1.8 % [facility] Comment: Interpretive Data Percent cell count reference ranges are not reported, since discordance with absolute values may lead to misinterpretation of CBC data. Current Interpretive Data was last revised on 2017. Basophil pct 0.3 % [facility] Comment: Interpretive Data Percent cell count reference ranges are not reported, since discordance with absolute values may lead to misinterpretation of CBC data. Current Interpretive Data was last revised on 2017. Blood 05/21/2024 4:20 PM JAVASCRIPT UI DEVELOPER 05/21/2024 4:50 PM JAVASCRIPT UI DEVELOPER Jimmie Zavala MD LAB BLOOD ORDERABLES Final Resul t [facility] Department [place] [address] * (ABNORMAL) CBC with auto differential (05/21/2024 4:20 PM JAVASCRIPT UI DEVELOPER) WBC 11.4(H) 3.8 - 9.9 K/cumm Hgb 14.0 11.9 - 15.5 g/dL [facility] Hct 43.6 35.6 - 45.5 % [facility] Plt 286 150 - 400 K/cumm [facility] MPV 9.9 9.1 - 12.3 fL [facility] RBC 4.83 3.90 - 5.20 M/cumm [facility] MCV 90.3 81.3 - 96.4 fL [facility] MCH 29.0 27.1 - 33.3 pg [facility] MCHC 32.1(L) 32.3 - 35.7 g/dL [facility] RDW CV 13.6 11.1 - 14.9 % [facility] RDW SD 45.6 35.7 - 48.1 fL [facility] NRBC abs 0.00 0.00 - 0.01 K/cumm [facility] Blood Venous blood specimen / Unknown 05/21/2024 4:20 PM JAVASCRIPT UI DEVELOPER 05/21/2024 4:50 PM JAVASCRIPT UI DEVELOPER Jimmie Zavala MD LAB BLOOD ORDERABLES Final Resul t Performing Organization Address City/[facility]/ZIP Co de Phone Number [facility] Department [place] [address] * (ABNORMAL) Hemoglobin A1c (05/21/2024 4:20 PM JAVASCRIPT UI DEVELOPER) Hgb A1C 8.7(H) 4.0 - 5.6 % Estimated Average Glucose 203 mg/dL [facility] Comment: The ADA recommends reporting an estimated Average Glucose (eAG) with all Hemoglobin A1c results using the equation derived from a study of 507 normal and diabetic adults. Minority populations were underrepresented and children were not included. (Diabetes Care 2020; 43(S1): S66-S76). The eAG is not equivalent to a fasting glucose. Blood 05/21/2024 4:20 PM JAVASCRIPT UI DEVELOPER 05/21/2024 4:55 PM JAVASCRIPT UI DEVELOPER Leo Henry MD LAB BLOOD ORDERABLES Final Result [facility] Department [place] [address] * (ABNORMAL) Lipid panel (05/21/2024 4:20 PM JAVASCRIPT UI DEVELOPER) Cholesterol 205(H) 30 - 199 mg/dL Comment: [...] 2017. Triglycerides 92 <=149 mg/dL [facility] Comment: Interpretive Data Ages < or = [...] 2017. HDL 55 >=40 mg/dL [facility] Comment: Interpretive Data Ages < or = [...] on 2017. LDL, calculated 134(H) <=129 mg/dL [facility] Comment: Interpretive Data Ages < or = [...] NCEP Expert Panel. Circulation 2004;110:227 3. Kedar Jacobs al. NANO Cardiol. 2020 August 22;5(5):540-548. doi: 10.1001/jamacardio.2020.0013 Current Interpretive Data was last revised on 2023. Non-HDL Cholesterol 150 mg/dL [facility] Comment: Interpretive Data Ages < or = [...] last revised on 2017. Chol/HDL ratio 4 [facility] Blood 05/21/2024 4:20 PM JAVASCRIPT UI DEVELOPER 05/21/2024 4:50 PM JAVASCRIPT UI DEVELOPER Narrative [facility] - 05/22/2024 4:17 PM JAVASCRIPT UI DEVELOPER Reflex us Leo Henry MD LAB BLOOD ORDERABLES Final Result [facility] Department [place] [address] * Comprehensive metabolic panel (05/21/2024 4:20 PM JAVASCRIPT UI DEVELOPER) Sodium 140 135 - 145 mmol/L Potassium, pl 4.3 3.3 - 4.9 mmol/L [facility] Chloride 100 97 - 110 mmol/L [facility] CO2 29 22 - 32 mmol/L [facility] Anion gap 11 2 - 15 mmol/L [facility] BUN 14 6 - 25 mg/dL [facility] Creatinine 0.63 0.60 - 1.10 mg/dL [facility] Glucose 119 70 - 199 mg/dL [facility] Comment: Interpretive Data Fasting glucose >/= [...] 2022. Calcium 10.0 8.5 - 10.3 mg/dL [facility] Bilirubin, total 0.7 0.1 - 1.2 mg/dL [facility] Protein, pl 8.5 6.5 - 8.5 g/dL [facility] Albumin 3.9 3.5 - 5.0 g/dL [facility] Alk phos 83 40 - 130 Units/L [facility] ALT 23 7 - 45 Units/L [facility] AST 22 10 - 45 Units/L [facility] Blood 05/21/2024 4:20 PM JAVASCRIPT UI DEVELOPER 05/21/2024 4:50 PM JAVASCRIPT UI DEVELOPER us Jimmie Zavala MD LAB BLOOD ORDERABLES Final Resul t [facility] Department [place] [address] * XR Chest Pa Lateral 2 Views (05/21/2024 2:23 PM JAVASCRIPT UI DEVELOPER) Anatomical Region Laterality Modality Body, Chest N/A Computed Radiogr aphy 05/21/2024 2:28 PM JAVASCRIPT UI DEVELOPER Impressions 05/21/2024 2:36 PM JAVASCRIPT UI DEVELOPER The current study is compared with the [...] Jaime Neves M.D. Narrative 05/21/2024 2:36 PM JAVASCRIPT UI DEVELOPER EXAMINATION: 2 view chest radiograph Procedure Note Jaime Neves MD - 05/21/2024 EXAMINATION: 2 view chest radiograph IMPRESSION: The current study is compared with the prior radiograph dated 05/14/2024. Spinal nerve stimulator projects over the mid thoracic spine. Cholecystectomy clips. Mild bibasilar atelectasis. No consolidation, pleural effusion, or pneumothorax. Cardiomediastinal silhouette is normal. Dictated by: Yesi Vaughn, M.D. The radiology attending physician has personally reviewed this study, and had reviewed and/or edited this written report and agrees with it. Electronically signed by: Jaime Neves M.D. us Jimmie Zavala MD IMG XR PROCEDURES Final Result * POCT glucose (05/21/2024 1:39 PM JAVASCRIPT UI DEVELOPER) Glucose, POC 113 70 - 199 mg/dL Blood 05/21/2024 1:39 PM JAVASCRIPT UI DEVELOPER 05/21/2024 1:39 PM JAVASCRIPT UI DEVELOPER us Notinfile Unknown LAB POCT ORDERABLES - DEVICE F inal Result [facility] Department [place] [address] * ECG 12-LEAD (05/21/2024 1:36 PM JAVASCRIPT UI DEVELOPER) Narrative [facility] - 05/21/2024 1:36 PM JAVASCRIPT UI DEVELOPER Gil Mcgrath MD 05/21/2024 1:37 PM ECG [...] in the ED Gil Mcgrath MD 05/21/24 [id number] us Jimmie Zavala MD ECG ORDERABLES Final Result [facility] * Axillary Breast Left (05/21/2024 12:13 PM JAVASCRIPT UI DEVELOPER) Anatomical Region Laterality Modality Upper Extremities Left Ultrasound 05/21/2024 12:2 3 PM JAVASCRIPT UI DEVELOPER Impressions 05/21/2024 12:23 PM JAVASCRIPT UI DEVELOPER 1. Limited ultrasound due to extensive edema [...] Alicia Wilcox M.D. Narrative 05/21/2024 12:23 PM JAVASCRIPT UI DEVELOPER EXAMINATION: LEFT AXILLARY ULTRASOUND HISTORY: Patient is [...] is concern for recurrence. Electronically signed by: lAicia Wilcox M.D. Khris Arthur MD [facility] US PROCEDURES Fi nal Result * (ABNORMAL) Urinalysis reflex to microscopic and culture Urine, clean voided (05/14/2024 4:50 PM JAVASCRIPT UI DEVELOPER) Color, ur Straw Yellow Clarity, ur Clear Clear [facility] Specific gravity, ur 1.025 1.003 - 1.030 [facility] pH, urine 5.5 [facility] Comment: Interpretive Data U rine pH is affected by diet, medications, systemic acid-base disturbances, and renal tubular function. pH may affect urinary stone formation. For example, urine pH below 6.0 may help reduce the tendency for calcium phosphate stones and pH greater than 6.0 may reduce the tendency for uric acid stone formation. Source: [facility] Current Interpretive Data was last revised on 2017 Protein, ur ql Trace Negative [facility] Glucose, ur ql Negative Negative [facility] Ketones, ur Negative Negative [facility] Bilirubin, ur Negative Negative [facility] Blood, ur Trace(A) Negative [facility] Urobilinogen, ur <2.0 <2.0 mg/dL [facility] Nitrite, ur Negative Negative [facility] Leukocyte esterase, ur Negative Negative [facility] UA reflex comment Reflex to microscopic UA will be performed. [facility] Urine, clean voided 05/14/2024 4:50 PM JAVASCRIPT UI DEVELOPER 05/14/2024 7:18 PM JAVASCRIPT UI DEVELOPER Khris Arthur MD LAB MICROBIOLOGY - G ENERAL ORDERABLES Final Result Performing Organization Address [facility] Co de Phone Number [facility] Department [place] [address] * (ABNORMAL) Urinalysis, microscopic only (05/14/2024 4:50 PM JAVASCRIPT UI DEVELOPER) WBC, ur 0-5 0 - 5 /HPF RBC, ur 0-2 0 - 2 /HPF [facility] Epithelial cells, squamous, ur 1-5 0 - 5 /HPF [facility] Bacteria, ur Trace(A) [facility] Mucous, ur Present(A) [facility] Culture Reflex Comment Reflex conditions for urine culture (WBC >10) not met. [facility] Urine, clean voided 05/14/2024 4:50 PM JAVASCRIPT UI DEVELOPER 05/14/2024 7:18 PM JAVASCRIPT UI DEVELOPER Khris Arthur MD LAB URINE ORDERABLES Final Result Performing Organization Address [facility] Co de Phone Number [facility] Department [place] [address] * XR Ribs Left 2 Views (05/14/2024 4:44 PM JAVASCRIPT UI DEVELOPER) Anatomical Region Laterality Modality Rib, Chest Left Digital Radiogra phy 05/14/2024 4:54 PM JAVASCRIPT UI DEVELOPER Impressions 05/14/2024 4:54 PM JAVASCRIPT UI DEVELOPER 1. No displaced left rib fracture. Electronically signed by: Santiago Gan D.O. Narrative 05/14/2024 4:54 PM JAVASCRIPT UI DEVELOPER EXAMINATION: XR RIBS LEFT 2 VIEWS HISTORY: [...] Bone mineral density was performed on a [employer] Discovery Densitometer. Based on machine cross-calibration and [...] scan were prepared by Yesenia Hernandez) MARY who is accredited by the International Society of Clinical Densitometry. The overall patient assessment and scan interpretation were performed by Kaylie Castro MD who is certified by the International Society of Clinical Densitometry. [id number] us Khris Arthur MD IMG DXA PROCEDURES [...] agrees with it. ACC# Date Time Exam [id number] Aug 19, 2016 14:27:00 [facility] [id number] Diag Mamm, inc CAD, unilat L Technologist(s): Carla Harris; ; [id number] Aug 19, 2016 15:39:00 [facility] [id number] Breast US unilateral, ltd L ACC# Date Time Exam [id number] Aug 19, 2016 14:27:00 [facility] [id number] DiaAbbeyPost Mamm, inc CAD, unilat L Technologist(s): Carla Harris; ; [id number] Aug 19, 2016 15:39:00 [facility] [id number] Breast US unilateral, ltd L EXAMINATION: LEFT [...] SARABIA M.D. on Aug 19 2016 4:20P [id number] Procedure Note Miscellaneous, Not In File / Provider, MD Tyler - 09/17/2016 ANTHONY SARABIA M.D. JUDY RINCON M.D. FINAL REPORT The radiology attending physician has personally reviewed this study, and has reviewed and/or edited this written report and agrees with it. ACC# Date Time Exam [id number] Aug 19, 2016 14:27:00 [facility] [id number] Diag Mamm, inc CAD, unilat L Technologist(s): Carla Harris; ; [id number] Aug 19, 2016 15:39:00 [facility] [id number] Breast US unilateral, ltd L ACC# Date Time Exam [id number] Aug 19, 2016 14:27:00 [facility] [id number] Diag Mamm, inc CAD, unilat L Technologist(s): Carla Harris; ; [id number] Aug 19, 2016 15:39:00 [facility] [id number] Breast US unilateral, ltd L EXAMINATION: LEFT [...] SARABIA M.D. on Aug 19 2016 4:20P [id number] us Not In File Miscellaneous IMG MAMMO PROCEDURES F inal Result from Last 3 Months or Most Recently Relevant to Health Maintenance Insurance [facility] MEDICARE SOLUTIONS MEDICARE SOLUTIONS MEDICARE SOLUTIONS Advance Directives For more information, please contact: [phone] Documents on File Type Date Recorded Patient Cigar Bander Expl anation ADVANCE DIRECTIVE 12/23/2021 2:49 PM Power of Metal Dresser-Medical ADVANCE DIRECTIVE 12/23/2021 2:49 PM Living Will [...] First Alternate Health Care Agent Care Teams Photographic Aide Relationship Specialty Start Date End Date Justen Gale MD [address] [address] PCP - General 10/09/17 Liu Jerez MD Consulting Physician Gastroenterology 07/28/17 [place] [address] [facility] [facility] [address] [place] [address] Consulting Physician Pulmonary Disease 08/03/17 Khris Arthur MD [address] [facility] [address] [place] [address] Medical Oncologist/Information Technology Consultant Medical Oncology 10/23/17 [place] [address] [facility] [facility] [address] [place] [address] Surgeon Orthopedic Surgery 10/23/17 [place] [id number] [facility] [address] [place] [address] Consulting Physician Pain Management 10/23/17 [place] [address] [facility] [address] [place] [address] Referring Physician General Surgery 01/26/18 [place] [address] [facility] [facility] [address] [place] [address] Consulting Physician Neurology 01/26/18
--- OUTSIDE RECORDS SUMMARY | 2024-07-11 00:52 | XMS_ITS | Encounter Summary ---
Author Organization [facility] Address [address] [place] [address] Phone Care Team Providers Care Obgyn Hospitalist Physician Name Role Phone Justen Gale MD Primary Care Provider [phone] David Roberts APRN, DIRECTOR COLLEGE Unavailable [phone] Annel Rod MD Unavailable Reason for Visit * Reason Comments Medication Refill Encounter Details Date Type Department Care Team (Late st Contact Info) Description 02/07/2020 Refill [facility] [address] [address] Justen Gale MD [address] [address] Medication Refill Social History Tobacco Use Types [...] documented as of this encounter Care Teams Obgyn Hospitalist Physician Relationship Specialty Start Date End Date Justen Gale MD #2 [facility] [address] [place] [address] PCP - General Family Medicine 10/17/17 David Roberts APRN, DIRECTOR COLLEGE #2 [place] [address] Nurse Practitioner Advanced Practice Nurse 01/31/22 Annel Rod MD #2 [facility] [address] [place] [address] Consulting Physician Endocrinology 07/01/22 documented as of this encounter
--- OUTSIDE RECORDS SUMMARY | 2024-07-11 00:52 | XMS_ITS | CONTINUITY OF CARE DOCUMENT ---
Author Name ayesha, ayesha Address Unknown Organization [facility] Address [address] [place] [address] Phone [phone] Care Team Providers Care Edge Stainer Name Role Phone Yamilet DURÁN, Maico Unavailable ALANIS DURÁN, BRIDGETT Unavailable ALLISON DURÁN, CLARISSE Unavailable PROBLEMS Condition Status Date Provider Notes Shortness of breath active Ivory Rodriguez Palpitations active Radha Seals INSURANCE PROVIDERS Payer name Policy type / Coverage type Thayer red alliance party ID UHC MEDICARE COMPLETE HMO Other [id number] [facility] Medicaid 2 [id number] HISTORY OF PROCEDURES Procedure Date Procedure Name Provider Procedure Notes S tatus Stress EKG Carmine Silverio MD complet ed Regadenoson, 4 units Sergey Saldana MD completed Cardiolite, 2 units Sergey Saldana MD completed SPECT Images Carmine Silverio MD compl eted Holter, 24 or 48 Maico Woodard MD co mpleted
--- OUTSIDE RECORDS SUMMARY | 2024-07-11 00:52 | XMS_ITS | Clinical Summary ---
Author Organization [facility] Address [address] [place] [address] Care Team Providers Care Plumbing Designer Name Role Phone Justen Gale MD Primary Care Provider [phone] Source Comments [facility] Affiliates and Associated Physician Practices is amultiple site organization consisting of ambulatory clinics and hospital sitesin [place], [place], [place] and [place]. This disclosure is being madepursuant to the Care Everywhere program and may not contain all information available regarding this patient. Last updated 18.[facility] [employer] Allergies Active Allergy Reactions Criticality Noted Date [...] (FreeStyle Eileen 2 Sensor Systm) [facility] 1 SENSOR AND WEAR FOR 14 [...] medical care, and heating? Somewhat hard 05/16/2023 [facility] [place] of Occupat ional Health - Occupational Stress [...] 69 08/01/2023 5:20 AM CDT Temperature 36.5 C (97.7 F) 08/01/2023 5:20 AM CDT Respiratory Rate 18 08/01/2023 5:20 AM CDT [...] URINE PROTEIN SCREENING 04/24/2024 09/11/2021 MEDICARE AWV CALENDAR YEAR 2024 DIABETES-SERUM CREATININE 12/03/20242023, 07/30/2023, [...] complete this topic MENINGOCOCCAL (Group B) VACCINE SHARED DECISION-MAKING Aged Out No longer eligible based on patient's age to complete this topic MENINGOCOCCAL GROUPS A/C/Y/W VACCINE Aged Out No longer eligible based on patient's age to complete this topic Medical Devices Implanted Type Area Burglar Alarm Assembler Device Identifier Shelf Expiration Date Model / Serial / Lot Lead Nrstm 60cm Penta 3mm Pdl 16 Chnl Implanted:Qt y: 1 on 09/16/2021 by Maxi Gregg MD at [facility] Right: Spine Thoracic Advanced [employer] Systems [id number] / / Description:JJ Slnt Dura Duraseal Pg Trilysine Amine 5 Implanted:Qt y: 1 on 09/16/2021 by Maxi Gregg MD at [facility] Right: Spine Thoracic Inte[employer] David [id number] / / Description:JJ Proclaim Plus 5 Implanted:Qt y: 1 on 02/16/2023 by Maxi Gregg MD at [facility] Left: Back Cardenas Spine [id number] 11/07/2024 3670 / [id number] / Explanted Type Area Burglar Alarm Assembler Device Identifier Shelf Expiration Date Model / Serial / Lot Gntr Nrstm 1.95inx2.19in Proclaim Elt Implanted:Qty: 1 on 09/16/2021 by Maxi Gregg MD at [facility] Explanted:Qty: 1 on 10/30/2021 by Maxi Gregg MD at [facility] Right: Spine Thoracic [facility] [facility] [...] - 26 mg/dL 07/30/2023 2:31 AM CDT [facility] Creatinine 0.67 0.56 - 0.96 mg/dL 07/30/2023 2:31 AM CDT [facility] Sodium 136 136 - 145 mmol/L 07/30/2023 2:31 AM CDT [facility] Potassium 4.4 3.5 - 4.5 mmol/L 07/30/2023 2:31 AM CDT [facility] Chloride 101 98 - 107 mmol/L 07/30/2023 2:31 AM [facility] CO2 27 22 - 29 mmol/L 07/30/2023 2:31 AM [facility] Glucose 238(H) 70 - 115 mg/dL 07/30/2023 2:31 AM [facility] Albumin 2.9(L) 3.4 - 5.0 g/dL 07/30/2023 2:31 AM [facility] Calcium 9.4 8.4 - 10.2 mg/dL 07/30/2023 2:31 AM [facility] Phosphorus 3.0 2.9 - 5.1 mg/dL 07/30/2023 2:31 AM [facility] Anion Gap 8 6 - 16 07/30/2023 2:31 AM [facility] BUN/Creatinine Ratio 30(H) 7 - 23 07/30/2023 2:31 AM [facility] Osmolality Calculated 292 275 - 295 mOsm/kg 07/30/2023 2:31 AM [facility] eGFR by CKD-EPI >90 >=90 mL/min/1.7 3 m2 07/30/2023 2:31 AM [facility] Blood BLOOD SPECIMEN / Unknown Lab Venipuncture / Unknown 07/30/2023 1:28 AM CDT 07/30/2023 2:04 AM CDT Brian Bravo MD LAB - CHEMISTRY ANGEL SPEARS [facility] Organization Address City/State/ZIP Co de Phone Number [facility] [address] [place] [address], [facility] [phone] * HEPATITIS C AB SCREEN RFLX NAAT QUANT (02/21/2023 6:30 PM CDT) Hepatitis C Antibody Non-react hugh Non-reac tive 02/21/2023 7:32 PM [facility] Comment:Hepatitis C Antibody screen indicates no [...] Solitario MD LAB - CHEMISTRY ANGEL SPEARS [facility] [address] [place] [address], [place] [phone] * (ABNORMAL) HEMOGLOBIN A1C (12/25/2022 3:56 AM CDT) Hemoglobin A1c 8.6(H) <=5.6 % 12/25/2022 2:47 PM CDT [facility] Estimated Average Glucose 200 mg/dL 12/25/2022 2:47 PM CDT [facility] Comment: HbA1c Interpretation: Normal : < 5.7% Pre-diabetes: 5.7-6.4% Diabetes: Equal to or greater than 6.5% Test results diagnostic of diabetes should be repeated for confirmation. Treatment target values recommended by ADA and other clinical organizations should be used to evaluate metabolic control in patients. Reference: [place] Diabetes Association, Standards of Care in Diabetes [...] Rodriguez MD LAB - CHEMISTR Y ORDERABLES [facility] [address] [place] [address], [place] [phone] from Last 3 Months or Most Recently [...] 3:37 AM 03/23/2023 7:14 PM Care Teams Plumbing Designer Relationship Specialty Start Date End Date Justen Gale MD PCP - General 07/05/21
--- OUTSIDE RECORDS SUMMARY | 2024-07-11 00:52 | XMS_ITS | Encounter Summary ---
Author Organization [facility] Address [address] [place] [address] Phone Care Team Providers Care Roughener Name Role Phone Justen Gale MD Primary Care Provider [phone] Davdi Roberts APRN, CONDUCTOR/BRAKEMAN Unavailable [phone] Annel Rod MD Unavailable Encounter Details Date Type Department Care Team (Late st Contact Info) Description 05/13/2024 Results Follow-Up [facility] - Family Medicine [facility] [address] [place] [address] Justen Gale MD #[address] [address] Social History Tobacco Use Types Packs/Day Years [...] documented as of this encounter Care Teams Roughener Relationship Specialty Start Date End Date Justen Gale MD #2 [facility] [address] [place] [address] PCP - General Family Medicine 10/17/17 David Roberts APRN, NETTA #2 [place] [address] Nurse Practitioner Advanced Practice Nurse 01/31/22 Annel Rod MD #2 [facility] [address] [place] [address] Consulting Physician Endocrinology 07/01/22 documented as of this encounter
--- OUTSIDE RECORDS SUMMARY | 2024-07-11 00:52 | XMS_ITS | Encounter Summary ---
Author Organization [facility] Address [address] [place] [address] Phone Care Team Providers Care Exercise Rider Name Role Phone Justen Gale MD Primary Care Provider [phone] David Roberts APRN, FUNERAL SALES MANAGER Unavailable [phone] Annel Rod MD Unavailable Reason for Visit * Reason Comments Medication Refill Encounter Details Date Type Department Care Team (Late st Contact Info) Description 03/13/2021 Refill [facility] [address] [place] [address] Justen Gale MD #[address] [address] Medication Refill Social History Tobacco Use Types [...] COVID-19? No / Unsure 03/02/2021 5:05 PM BICYCLE TECHNICIAN documented as of this encounter Plan of Treatment Not on file documented as of this encounter Visit Diagnoses Not on filedocumented in this encounter Additional Health Concerns Assessment Noted Time PHQ-9 Depression Total Score: 0 07/21/19 21 3:00 PM CDT documented as of this encounter Care Teams Exercise Rider Relationship Specialty Start Date End Date Justen Gale MD #2 [facility] [address] [place] [address] PCP - General Family Medicine 10/17/17 David Roberts APRN, NETTA #2 [place] [address] Nurse Practitioner Advanced Practice Nurse 01/31/22 Annel Rod MD #2 [facility] [address] [place] [address] Consulting Physician Endocrinology 07/01/22 documented as of this encounter
--- OUTSIDE RECORDS SUMMARY | 2024-07-11 00:52 | XMS_ITS | Encounter Summary ---
Author Organization [facility] Address [address] [place] [address] Phone Care Team Providers Care Material Handling Technician Name Role Phone Justen Glae MD Primary Care Provider [phone] David Roberts APRN, NETWORKER Unavailable [phone] Annel Rod MD Unavailable Reason for Visit * Reason Onset Date Comments Medication Refill 08/06/2020 Encounter Details Date Type Department Care Team (Late st Contact Info) Description 08/06/2020 Refill [facility] [address] [place] [id number] Justen Gale MD #[address] [address] Medication Refill Social History Tobacco Use Types [...] Outpatient Visits 2 weeks ago [facility] Pili Mueller APN, NETWORKER 2 months ago Increased urinary frequency [facility] Pili Mueller TIMBER CRUISER, NETWORKER 5 months ago Urinary frequency [facility] Pili Mueller TIMBER CRUISER, NETWORKER 8 months ago Type 2 diabetes mellitus with diabetic polyneuropathy, with long- term current use of insulin (HCC) [facility] Pili Mueller TIMBER CRUISER, NETWORKER 9 months ago [facility]en Olmedo MD Upcoming Appointments Future Appointments In 6 days Pili Elkins APN, NETWORKER [facility] Elias Mcgee [facility] - Recent and Past Visits Recent Visits Date Type Provider Dept 07/20/20 Office Visit Pili Elkins APN, NETWORKER [facility] [place] 06/05/20 Office Visit Pili Elkins APN, NETWORKER [facility] [place] 02/17/20 Office Visit Pili Elkins APN, CNP [facility] [place] 12/03/19 Office Visit Pili Elkins APN, CNP [facility] [place] 11/05/19 Telemedicine Justen Gale MD [facility] 07/25/19 [facility]icine [facility] within past 460 days with a meds authorizing provider and meeting all other requirements Future Appointments Date Type Provider Dept 08/12/20 Appointment Pili Elkins APN, CNP [facility] Showing future appointments within next 90 [...] as of this encounter Care Teams Material Handling Technician Relationship Specialty Start Date End Date Justen Gale MD [facility] [address] [address] PCP - General Family Medicine 10/17/17 David Roberts APRN, CNP #2 [place] [address] Nurse Practitioner Advanced Practice Nurse 01/31/22 Annel Rod MD #[address] [address] Consulting Physician Endocrinology 07/01/22 documented as of this encounter
--- OUTSIDE RECORDS SUMMARY | 2024-07-11 00:53 | XMS_ITS | Clinical Summary ---
Author Organization [facility] Address [address] [place] [address] Phone Care Team Providers Care Stick Feeder Name Role Phone Justen Gale MD Primary Care Provider [phone] David Roberts APRN, SYSTEM ENGINEER Unavailable [phone] Annel Rod MD Unavailable Allergies Active Allergy [...] mouth daily. Active Blood Glucose Monitoring Suppl DeviceIndicatio ns:Type 2 diabetes mellitus with complication, without long-term current use of insulin (HCC) Diagnosis: Diabetes Type 2 Blood testing frequency: 4 times a day 1 Each 8 Active HYDROcodone-sara taminophen (NORCO) 7.5-325 MG Tablet 0 9 Active Glucose Blood (ONE TOUCH ULTRA TEST) Strip Test four times daily. 400 Strip 3 0 Active Misc. Devices MiscIndications :LUL (obstructive sleep apnea) Supply and instructions: 1 Each 1 Active OneTouch Delica Lancets 33G Misc 1 Lancet by Does not apply route 4 times daily. 400 Lancet 3 1 Active naloxone HCl (Narcan) 4 MG/0.1ML Liquid 2 Active diphenhydrAMINE (BENADRYL) 25 MG Capsule Take 25 [...] mouth. 4 Active Continuous Glucose Sensor (FreeStyle Elieen 2 Sensor) Misc APPLY 1 SENSOR AND WEAR FOR 14 DAYS TO CHECK BLOOD SUGAR 6 Each 1 4 Active HYDROcodone-sara taminophen (NORCO) 10-325 MG Tablet Take 1 Tablet by mouth. 4 Active insulin glargine (Lantus SoloStar) 100 UNIT/ML Solution Pen-injector 40 Units by Subcutaneous route nightly. 15 mL 4 Active Multiple Vitamins-Minera ls (WOMENS MULTI PO) Take by mouth. Activ e Calcium Citrate-Vitamin D (CALCIUM + D PO) Take by mouth. Activ e rOPINIROLE (REQUIP) 5 MG Tablet Take 1 Tablet by mouth nightly. 90 Tablet 2 5 Active ondansetron (Zofran) 4 MG Tablet Take 1 Tablet by mouth every 8 hours as needed for Nausea - 1st line. 15 Tablet 5 Active Continuous Glucose Sensor (FreeStyle Eileen 2 Sensor) Misc 1 Each by Does not apply route every 14 days. Change sensor every 14 days. E11.42, insulin dependent 6 Each 1 5 Active Active Problems Problem Noted Date Diagnosed [...] Overview: Added automatically from request for surgery [id number] Lymphedema of left upper extremity 08/09/2016 Pulmonary embolism 08/09/2016 Overview (11/09/2017): Last Assessment & Plan: On Rivaroxaban Arthralgia of ankle 01/26/2015 Cellulitis of breast 11/11/2014 Encounters Date Type Department Care Team Description 07/11/2024 Nurse Triage [address] [address] Justen Gale MD Toe Problem 06/14/2024 Nurse Triage [facility] [address] [place] [address] Justen Gale MD Urinary Incontinence; Urinary Problem 05/28/2024 Nurse Triage [facility] [address] [place] [address] Justen Gale MD Nausea; Fatigue 05/14/2024 Nurse Triage [facility] [address] [place] [address] Justen Gale MD Arm Swelling; Arm Pain 05/13/2024 Results Follow-Up [facility] [address] [place] [address] Justen Gale MD 04/23/2024 MyChart RX Renewal [facility] [address] [place] [address] Annel Rod MD Medication Renewal Declined 04/23/2024 MyChart RX Renewal [facility] [address] [place] [address] Justen Gale MD Medication Renewal Request from Last 3 Months Immunizations Immunization Administration Dates Next Due Covid-19 Vaccine, Vector-nr, Rs-ad26, Pf, 0.5 Ml ([employer]) 06/29/2020 Influenza Vaccine greater than 3 yrs [...] 77 01/17/2024 1:47 PM CDT Temperature 36 C (96.8 F) 01/17/2024 1:47 PM CDT Respiratory Rate 18 01/17/2024 1:47 PM CDT Oxygen Saturation 98% 01/17/2024 1:47 PM CDT Inhaled Oxygen Concentration - - Weight 120.7 kg (266 lb) 01/17/2024 1:47 PM CDT Height 154.9 cm (5' 1 ) 01/17/2024 1:47 PM CDT Body Mass Index 50.26 01/17/2024 1:47 PM CDT Plan of Treatment Health Maintenance [...] SARS-COV-2 Immunization ( season) 2023 05/04/2021, 06/29/2020 DEXA Bone Density 08/02/2024 08/02/2022, 11/10/2020 Diabetes: Hemoglobin A1c 11/18/2024 025, 10/14/2023, 10/02/2023, Additional history exists Diabetes: Nephropathy Screening 12/03/2024 12/04/2023, 10/03/2023, 09/11/2023, Additional history exists Colonoscopy 01/08/2025 01/09/2020, 09/10/2018 Colorectal Cancer Screening 01/08/2025 Td Immunization Every 10 Years (Adults With 1 Tdap) 02/22/2026 02/23/2016 01/09/2020, 09/10/2018 Mammogram Unilateral Discontinued 09/10/2014 Cervical Cancer Screening [...] Date/Time Associated Diagnosis Comments CT - ABDOMEN/PELVIS 06/21/2024 12:00 AM SHAKER OPERATOR XR - LOWER EXTREMITY 06/20/2024 12:00 AM SHAKER OPERATOR PAIN CONSULT 05/20/2024 12:00 AM SHAKER OPERATOR XR - CHEST 05/15/2024 12:00 AM SHAKER OPERATOR URINALYSIS (UA) RANDOM 12:00 AM SHAKER OPERATOR XR - CHEST 05/14/2024 12:00 AM SHAKER OPERATOR EXTERNAL GASTROENTEROLOGY REFERRAL Less Than 1 week 05/07/2024 12:00 AM SHAKER OPERATOR Nausea and vomiting, unspecified vomiting type Pain of upper abdomen CT - ABDOMEN/PELVIS 04/19/2024 12:00 AM SHAKER OPERATOR CMP (COMPREHENSIVE METABOLIC PANEL) 12/04/2023 12:00 AM CDT HEMOGLOBIN, A1C 10/02/2023 12:00 AM CDT HUMAN PAPILLOMA VIRUS (HPV) Routine 07/05/2022 2:24 PM CDT Encounter for gynecological examination with abnormal finding Encounter for screening for human papillomavirus (HPV) PATHOLOGY CYTOLOGY PART TIME FLEXIBLE CLERK Routine 2:24 PM CDT Encounter for gynecological examination with abnormal finding HM COLONOSCOPY Routine 01/09/2020 AMB REFERRAL TO PODIATRY Routine 08/13/2019 POCT STOOL, OCCULT BLOOD, DIAGNOSTIC Routine 09/07/2018 1:20 PM CDT Generalized abdominal pain from Last 3 Months or Most Recently Relevant to Health Maintenance Results * CT - ABDOMEN/PELVIS (06/21/2024 12:00 AM SHAKER OPERATOR) Only the most recent of2 resultswithin the time period is included. 06/21/2024 us Provider Scan IMG CT ORDERABLES Final Result Performing Organization Address [facility] de Phone Number SCAN * XR - LOWER EXTREMITY (06/20/2024 12:00 AM SHAKER OPERATOR) 06/20/2024 us Provider Scan IMG DIAGNOSTIC ORDERABLES Final Result Performing Organization Address [facility] Co de Phone Number SCAN * PAIN CONSULT (05/20/2024 12:00 AM SHAKER OPERATOR) 05/20/2024 us Justen Gale MD GENERIC SCAN ORDERS CONSULT F inal Result Performing Organization Address [facility] Co de Phone Number SCAN * XR - CHEST (05/15/2024 12:00 AM SHAKER OPERATOR) Only the most recent of2 resultswithin the time period is included. 05/15/2024 us Provider Scan IMG DIAGNOSTIC ORDERABLES Final Result Performing Organization Address [facility] de Phone Number SCAN * URINALYSIS (UA) RANDOM (05/14/2024 12:00 AM SHAKER OPERATOR) 05/14/2024 us Provider Scan URINE ORDERABLES Final Result Performing Organization Address [facility] de Phone Number SCAN * EXTERNAL GASTROENTEROLOGY REFERRAL (05/07/2024 12:00 AM SHAKER OPERATOR) 05/07/2024 us Justen Gale MD OUTPT REFERRALS EXT/INT Final Result Performing Organization [facility] de Phone Number SCAN * CMP (COMPREHENSIVE METABOLIC PANEL) (12/04/2023 12:00 AM CDT) 12/04/2023 us Provider Scan CHEMISTRY ORDERABLES Final Resul t Performing Organization Address [facility] de Phone Number SCAN * HEMOGLOBIN, A1C (10/02/2023 12:00 AM CDT) HGB-A1C 7.8 SCAN 10/02/2023 us Provider Scan CHEMISTRY ORDERABLES Final Resul t Performing Organization Address [facility] de Phone Number SCAN * PATHOLOGY CYTOLOGY PART TIME FLEXIBLE CLERK (07/05/2022 2:24 PM CDT) SPECIMEN ADEQUACY A scant cellular component is noted. Scant cellularity is likely due to presence of lubricant. 07/08/2022 8:38 AM CDT [facility] DESCRIPTIVE DIAGNOSIS NEGATIVE FOR INTRAEPITHELIAL LESIONS OR MALIGNANCY. 07/08/2022 8:38 AM CDT [facility] R FINDINGS Atrophic hormonal pattern. 07/08/2022 8:38 AM CDT [facility] Automated Examination This sample was not evaluated by the automated imaging and review system ([employer] Imaging System, [employer], [place], [place] due to technical and / or biologic factor(s). The case was screened, reviewed, and finalized by a excelsior machine feeder and / or pathologist. 07/08/2022 8:38 AM CDT [facility] Disclaimer The PAP smear is a [...] unless clinically indicated. 07/08/2022 8:38 AM CDT [facility] Other CERVIX UTERI STRUCTURE / Unknown Non-Phlebotomy Collection / Unknown 07/05/2022 2:24 PM CDT 07/05/2022 2:24 PM CDT us Pili Elkins APRN, NETTA PATHOLOGY/CYTOLOGY O RDERABLES Final Result Performing Organization Address City/State/[facility] Co de Phone Number [facility] [address] [place] [address], * HUMAN PAPILLOMA VIRUS (HPV) (07/05/2022 2:24 PM CDT) HPV OTHER HIGH RISK TYPES, PCR NEGATIVE NEGATIVE 07/06/2022 2:37 PM CDT [facility] Comment: The following Other High Risk [...] 16 NEGATIVE NEGATIVE 07/06/2022 2:37 PM CDT [facility] Comment: A negative high-risk HPV result [...] 18 NEGATIVE NEGATIVE 07/06/2022 2:37 PM CDT [facility] Comment: A negative high-risk HPV result [...] OR DIAGNOSTIC SCREENING 07/06/2022 2:37 PM CDT [facility] Other Non-Phlebotomy Collection / Unknown 07/05/2022 2:24 PM CDT 07/05/2022 2:24 PM CDT Narrative [facility] - 07/06/2022 2:37 PM CDT Performed by Real-Time Polymerase Chain Reaction (PCR) on the Ronnie Vinay 4800. This assay has been validated for use with post-aliquot samples from the [employer] processor. Pili Elkins APRN, CNP LAB SEND OUTS Deann bowman Result [facility] [address] [place] [address], [facility] [address] [place] [address] * HM COLONOSCOPY (01/09/2020) Genaro Jensen DO PROCEDURE/MINOR SURGICAL ORDERA BLES Final Result * AMB REFERRAL TO PODIATRY (08/13/2019) Alvarez Mensah MD OUTPATIENT REFERRALS Final Res ult * POCT STOOL, OCCULT BLOOD, DIAGNOSTIC (09/07/2018 1:20 PM CDT) OCCULT BLOOD, STOOL Negative Negative, Other POC HEMOCULT CONTROL Masonry Inspector Pass 09/07/2018 1:20 PM CDT Pili Elkins APRN, SYSTEM ENGINEER POINT OF CARE TESTIN G (MANUAL) Final Result from Last 3 Months or Most Recently Relevant to Health Maintenance Insurance MEDICARE C [employer] Care Teams Stick Feeder Relationship Specialty Start Date End Date Justen Gale MD #[address] [address] PCP - General Family Medicine 10/17/17 David Roberts APRN, SYSTEM ENGINEER #[address] [place] [address] Nurse Practitioner Advanced Practice Nurse 01/31/22 Annel Rod MD #[address] [facility] [address] [address] Consulting Physician Endocrinology 07/01/22
--- OUTSIDE RECORDS SUMMARY | 2024-07-11 00:53 | XMS_ITS | Clinical Summary ---
Author Organization [facility] Address [address] [place] [address] Phone Care Team Providers Care Glass Presser Name Role Phone Justen Gale MD Primary Care Provider [phone] Allergies Active Allergy Reactions Criticality Noted Date [...] 73 09/29/2017 8:19 PM CDT Temperature 36.7 C (98 F) 09/30/2017 1:31 PM CDT Respiratory Rate 14 [...] DIABETES MICROALBUMIN ANNUAL SCREEN 1974 PNEUMOCOCCAL VACCINE 50+ YEA RS (1 of 2 - PCV) [...] - 6.0 % 09/29/2017 10:28 AM CDT [employer] [facility] EST. AVG GLUCOSE, A1C 186 mg/dL 09/29/2017 10:28 AM CDT [employer] Blood Venipuncture / Unknown 09/28/2017 8:41 PM CDT 09/28/2017 8:46 PM CDT Narrative [facility] - 09/29/2017 10:28 AM CDT HGB A1C INTERPRETATION NORMAL: <5.7% PRE-DIABETES: 5.7 - 6.4% DIABETES: 6.5% OR GREATER us Francisco Castaneda MD CHEMISTRY ORDERABLES Final Resul t [facility] Interactive [employer]# [id number] 5 [facility] [place] [address] * (ABNORMAL) LIPID PANEL (09/28/2017 8:41 PM CDT) CHOLESTEROL 174 <200 mg/dL 09/30/2017 2:45 AM CDT [facility] [employer] TRIGLYCERIDE 109 <150 mg/dL 09/30/2017 2:45 AM CDT [facility] [employer] HDL 45 40 - 59 mg/dL 09/30/2017 2:45 AM CDT [facility] [employer] LDL CALCULATED 107(H) <100 mg/dL 09/30/2017 2:45 AM CDT [facility] [employer] NON-HDL CHOLESTEROL 129 <130 mg/dL 09/30/2017 2:45 AM CDT [facility] Blood Venipuncture / Unknown 09/28/2017 8:41 PM CDT 09/28/2017 8:46 PM CDT Narrative [facility] - 09/30/2017 2:45 AM CDT TOTAL CHOLESTEROL mg/dL Desirable <200 Borderline high 200-239 High >=240 TRIGLYCERIDES mg/dL Normal <150 Borderline high 150-199 High 200-499 Very high >=500 HDL CHOLESTEROL mg/dL Low <40 Normal 40-59 Desirable >=60 NON HDL CHOLESTEROL mg/dL Optimal <130 Near Optimal 130-159 Borderline High 160-189 Very High >=190 Calculated LDL mg/dL Optimal <100 Near Optimal 100-129 Borderline High 130-159 High 160-189 Very High >=190 ATPIII Guidelines Reference Ranges for Lipid Panels (NCEP/AMA) us Francisco Castaneda MD CHEMISTRY ORDERABLES Final Resul t [facility] Interactive [facility] [id number] 5 [facility] [place] [address] from Last 3 Months or Most Recently Relevant to Health Maintenance Insurance Advance Directives For more information, please contact: [phone] * Full Code (Latest Code Status on File) Date Activated Date Inactivated Comments 09/29/2017 7:45 AM 09/30/2017 9:14 PM * Full Code Date Activated Date Inactivated Comments 09/29/2017 1:25 AM 09/29/2017 7:45 AM Care Teams Glass Presser Relationship Specialty Start Date End Date Justen Gale MD [address] [facility] [address] [place] [address] PCP - General Cardiovascular Disease 09/14/17
--- OUTSIDE RECORDS SUMMARY | 2024-07-11 00:53 | XMS_ITS | Encounter Summary ---
Author Organization [facility] Address [address] [place] [address] Phone Care Team Providers Care Disintegrator Feeder Name Role Phone Justen Gale MD Primary Care Provider [phone] David Roberts APRN, SERVICE ORDER DISPATCHER Unavailable [phone] Annel Rod MD Unavailable Reason for Visit * Reason Comments Medication Refill Encounter Details Date Type Department Care Team (Late st Contact Info) Description 02/07/2023 Refill [facility] #2 [place] [address] Pili Elkins APRN, SERVICE ORDER DISPATCHER #[address] [address] Medication Refill Social History Tobacco [...] documented as of this encounter Care Teams Disintegrator Feeder Relationship Specialty Start Date End Date Justen Gale MD #2 [facility] [address] [place] [address] PCP - General Family Medicine 10/17/17 David Roberts APRN, SERVICE ORDER DISPATCHER #2 [place] [address] Nurse Practitioner Advanced Practice Nurse 01/31/22 Annel Rod MD #2 [facility] [address] [place] [address] Consulting Physician Endocrinology 07/01/22 documented as of this encounter
--- OUTSIDE RECORDS SUMMARY | 2024-07-11 00:53 | XMS_ITS | Encounter Summary ---
Author Organization [facility] Address [address] [place] [address] Phone Care Team Providers Care Party Host Name Role Phone Justen Gale MD Primary Care Provider [phone] David Roberts APRN, MANIFOLD BUILDER Unavailable [phone] Annel Rod MD Unavailable Reason for Visit * Reason Comments Medication Refill Encounter Details Date Type Department Care Team (Late st Contact Info) Description 07/12/2022 Refill [facility] #2 [place] [address] Justen Gale MD #[address] [address] Medication Refill Social History Tobacco Use Types [...] 07/05/22 Office Visit Pili Elkins APRN, NETTA [facility] [place] [place] 05/02/22 Office Visit Justen Gale MD [facility] [place] 03/03/22 Office Visit Pili Elkins APRN, MANIFOLD BUILDER [facility] [place] 01/03/22 Office Visit Dannielle Berg PAC [facility] [place] 12/07/21 Office Visit Pili Elkins APRN, MANIFOLD BUILDER [facility] [place] 11/09/21 Office Visit Pili Elkins APRN, NETTA [facility] [place] 10/08/21 Office Visit Angelito Alegria APRN, NETTA [facility] [place] [place] 08/30/21 Office Visit Justen Gale MD [facility] Showing recent visits within past 365 days [...] documented as of this encounter Care Teams Party Host Relationship Specialty Start Date End Date Justen Gale MD #2 [facility] [address] [place] [address] PCP - General Family Medicine 10/17/17 David Roberts APRN, MANIFOLD BUILDER #2 [place] [address] Nurse Practitioner Advanced Practice Nurse 01/31/22 Annel Rod MD #2 [facility] [address] [place] [address] Consulting Physician Endocrinology 07/01/22 documented as of this encounter
--- OUTSIDE RECORDS SUMMARY | 2024-07-11 00:53 | XMS_ITS | Encounter Summary ---
Author Organization [facility] Address [address] [place] [address] Phone Care Team Providers Care Piece Dye Worker Name Role Phone Justen Gale MD Primary Care Provider [phone] David Roberts APRN, HELPER METAL HANGING Unavailable [phone] Annel Rod MD Unavailable Reason for Visit * Reason Comments Medication Refill Encounter Details Date Type Department Care Team (Late st Contact Info) Description 08/30/2022 Refill [facility] #2 [place] [phone] Justen Gale MD #[address] [address] Medication Refill Social History Tobacco Use Types [...] 07/05/22 Office Visit Pili Elkins APRN, NETTA [facility] [place] 05/02/22 Office Visit Justen Gale MD [facility] [place] 03/03/22 Office Visit Pili Elkins APRN, NETTA [facility] [place] 01/03/22 Office Visit Dannielle Berg PAC [facility] [place] 12/07/21 Office Visit Pili Elkins APRN, NETTA [facility] [place] 11/09/21 Office Visit Pili Elkins APRN, NETTA [facility] [place] 10/08/21 Office Visit Angelito Alegria APRN, CNP [facility] [place] 08/30/21 Office Visit [facility] Showing recent visits within past 365 [...] as of this encounter Care Teams Piece Dye Worker Relationship Specialty Start Date End Date Justen Gale MD #[address] [address] PCP - General Family Medicine 10/17/17 David Roberts APRN, HELPER METAL HANGING #2 [place] [address] Nurse Practitioner Advanced Practice Nurse 01/31/22 Annel Rod MD #[address] [phone] Consulting Physician Endocrinology 07/01/22 documented as of this encounter
--- OUTSIDE RECORDS SUMMARY | 2024-07-11 00:53 | XMS_ITS | Encounter Summary ---
Author Organization [facility] Address [address] [place] [address] Phone Care Team Providers Care Supervisor Boilermaking Shop Name Role Phone Liu Jerez MD Unavailable [phone] Albert Corbin MD Unavailable Justen Gale MD Primary Care Provider Khris Arthur MD Unavailable [phone] Ko Melendez MD Unavailable John Paul Moyer MD Unavailable Annel Rod MD Unavailable Anali MARSHALL MD, Carlos M. Unavailable [phone] Encounter Details Date Type Department Care Team [...] file Legal Sex Female 12:24 AM FIELD SALES EXECUTIVE Gender Identity Not on file Sexual [...] COVID: Recovered 02/10/2022 02/10/2022 06/10/2022 3:05 AM FIELD SALES EXECUTIVE Exposure, COVID-19 Comment:Added automatically based on COVID19 lab answers indicating exposure risk 02/11/2022 02/11/2022 02/15/2022 9:06 AM C DT COVID: Suspected 05/14/2022 05/14/2022 05/14/2022 10:41 AM FIELD SALES EXECUTIVE COVID: Suspected 06/07/2022 06/07/2022 06/07/2022 12:28 PM FIELD SALES EXECUTIVE COVID: Suspected 06/21/2022 06/21/2022 06/21/2022 2:12 AM FIELD SALES EXECUTIVE COVID: Suspected 10/05/2022 10/05/2022 10/05/2022 7:40 PM CDT COVID: Suspected 01/04/2024 01/04/2024 01/04/2024 10:30 PM CDT COVID: Suspected 02/14/2024 02/14/2024 02/15/2024 12:36 AM CDT COVID: Suspected 07/01/2024 07/01/2024 07/01/2024 2:53 PM CDT COVID: Suspected 07/01/2024 07/01/2024 07/02/2024 3:05 AM CDT documented as of this encounter Care Teams Supervisor Boilermaking Shop Relationship Specialty Start Date End Date Justen Gale MD 2 [facility] [address] [place] [address] PCP - General 10/09/17 Liu Jerez MD Consulting Physician Gastroenterology 07/28/[address] [place] [address] [facility] [address] [place] [address] Consulting Physician Pulmonary Disease 08/03/17 [place] [address] [place] [address] [address] [place] [address] Medical Oncologist/Product Promoter Retail [facility] Medical Oncology 10/23/17 [place] [address] [address] Surgeon Orthopedic Surgery 10/23/17 [place] [address] [facility] [address] [place] [address] Consulting Physician Pain Management 10/23/17 [place] [address] [address] Referring Physician General Surgery 01/26/18 [place] [address] [facility] [address] [place] [address] Consulting Physician Neurology 01/26/18 documented as of this encounter
--- OUTSIDE RECORDS SUMMARY | 2024-07-11 00:53 | XMS_ITS | Encounter Summary ---
Author Organization [facility] Address [address] [place] [address] Phone Care Team Providers Care Picket Labor Union Name Role Phone Justen Gale MD Primary Care Provider [phone] David Roberts APRN, FIRING PIN GAUGER Unavailable [phone] Annel Rod MD Unavailable Reason for Visit * Reason Comments Medication Refill Encounter Details Date Type Department Care Team (Late st Contact Info) Description 09/30/2023 Refill [facility] - [place] #2 [place] [address] Annel Rod MD #[address] [address] Medication Refill Social History Tobacco [...] documented as of this encounter Care Teams Picket [employer] Relationship Specialty Start Date End Date Justen Gale MD #[address] [facility] [address] [place] [address] PCP - General Family Medicine 10/17/17 David Roberts APRN, NETTA #2 [place] [address] Nurse Practitioner Advanced Practice Nurse 01/31/22 Annel Rod MD #[address] [address] Consulting Physician Endocrinology 07/01/22 documented as of this encounter
--- OUTSIDE RECORDS SUMMARY | 2024-07-11 00:53 | XMS_ITS | Encounter Summary ---
Author Organization [facility] Address [address] [place] [address] Phone Care Team Providers Care Aoc Director Intelligence Officer Name Role Phone Justen Gale MD Primary Care Provider [phone] David Roberts APRN, CAR TRACER Unavailable [phone] Annel Rod MD Unavailable Reason for Visit * Reason Onset Date Comments Advice Only 11/21/2023 Encounter Details Date Type Department Care Team (Late st Contact Info) Description 11/21/2023 Telephone [facility] [address] [place] [address] Justen Gale MD #[address] [address] Advice Only Social History Tobacco Use Types [...] 11/21/2023 3:17 PM CDT RFC: Alejandra from [facility] is calling to state that [...] documented as of this encounter Care Teams Aoc Director Intelligence Officer Relationship Specialty Start Date End Date Justen Gale MD #[address] [address] PCP - General Family Medicine 10/17/17 David Roberts APRN, NETTA #2 [place] [address] Nurse Practitioner Advanced Practice Nurse 01/31/22 Annel Rod MD #[address] [address] Consulting Physician Endocrinology 07/01/22 documented as of this encounter
--- OUTSIDE RECORDS SUMMARY | 2024-07-11 00:53 | XMS_ITS | Encounter Summary ---
Author Organization [facility] Address [address] [place] [address] Phone Care Team Providers Care Adjunct Lecturer Name Role Phone Justen Gale MD Primary Care Provider [phone] David Roberts APRN, BUILDING MAINTENANCE WORKER Unavailable [phone] Annel Rod MD Unavailable Reason for Visit * Reason Comments Medication Refill Encounter Details Date Type Department Care Team (Late st Contact Info) Description 07/06/2023 Refill [facility] - [facility] #2 [place] [address] Justen Gale MD #[address] [address] Medication Refill Social History Tobacco Use Types [...] AM CDT Medication(s) refilled and signed per OSDISTRICT [...] Dept 06/27/23 Office Visit Justen Gale MD [facility] [place] 01/17/23 Office Visit Catrina Qu[facility] visits within past 270 days [...] as of this encounter Care Teams Adjunct Lecturer Relationship Specialty Start Date End Date Justen Gale MD #[address] [address] PCP - General Family Medicine 10/17/17 David Roberts MANAGER ORDER, BUILDING MAINTENANCE WORKER #2 [place] [address] Nurse Practitioner Advanced Practice Nurse 01/31/22 Annel Rod MD [facility] [address] [address] Consulting Physician Endocrinology 07/01/22 documented as of this encounter
--- OUTSIDE RECORDS SUMMARY | 2024-07-11 00:53 | XMS_ITS | Encounter Summary ---
Author Organization [facility] Address [address] [place] [address] Phone Care Team Providers Care Highway Safety Engineer Name Role Phone Justen Gale MD Primary Care Provider [phone] David Roberts APRN, ROCK PICKER Unavailable [phone] Annel Rod MD Unavailable Reason for Visit * Reason Comments Medication Refill Encounter Details Date Type Department Care Team (Late st Contact Info) Description 10/24/2022 Refill [facility] - Family Medicine [facility] #2 [place] [address] Pili Elkins APRN, ROCK PICKER #[address] [address] Medication Refill Social History Tobacco [...] MD #2 [facility] [address] [place] [address] PCP - General Family Medicine 10/17/17 David Roberts APRN, NETTA #2 [place] [address] Nurse Practitioner Advanced Practice Nurse 01/31/22 Annel Rod MD #2 [facility] [address] [place] [address] Consulting Physician Endocrinology 07/01/22 documented as of this encounter
--- OUTSIDE RECORDS SUMMARY | 2024-07-11 00:53 | XMS_ITS | Encounter Summary ---
Author Organization [facility] Address [address] [place] [address] Phone Care Team Providers Care Hospital Liaison Name Role Phone Justen Gale MD Primary Care Provider [phone] David Roberts APRN, PROSTHETIST Unavailable [phone] Annel Rod MD Unavailable Reason for Visit * Reason Comments Medication Refill Encounter Details Date Type Department Care Team (Late st Contact Info) Description 02/07/2023 Refill [facility] Family [facility] #2 [place] [address] Catrina Quiñonez MD #2 [place] [address] Medication Refill Social History Tobacco Use Types [...] Dept 01/17/23 Office Visit Catrina Quiñonez MD [facility] 09/16/22 Office Visit Pili Elkins APRN, CNP [facility] [place] 07/05/22 Office Visit Pili Elkins APRN, NETTA [place] 05/02/22 Office Visit Justen [facility]ale MD [facility] [place] 03/03/22 Office Visit Pili Elkins APRN, NETTA [facility] [place] Showing recent visits within past 365 [...] Noted Time PHQ-9 Depression Total Score: 8 09/26/20 23 2:24 PM CDT documented as of this encounter Care Teams Hospital Liaison Relationship Specialty Start Date End Date Justen Gale MD #[address] [address] PCP - General Family Medicine 10/17/17 David Roberts APRN, PROSTHETIST #2 [place] [address] Nurse Practitioner Advanced Practice Nurse 01/31/22 Annel Rod MD #[address] [address] Consulting Physician Endocrinology 07/01/22 documented as of this encounter
--- OUTSIDE RECORDS SUMMARY | 2024-07-11 00:53 | XMS_ITS | Encounter Summary ---
Author Organization [facility] Address [address] [place] [address] Phone Care Team Providers Care Associate Manager Name Role Phone Justen Gale MD Primary Care Provider [phone] David Roberts APRN, WOOD SCRAP HANDLER Unavailable [phone] Annel Rod MD Unavailable Reason for Visit * Reason Comments Medication Refill Encounter Details Date Type Department Care Team (Late st Contact Info) Description 07/14/2022 Refill [facility] - Family [facility] #2 [place] [address] Justen Gale MD #[address] [address] Medication Refill Social History Tobacco Use Types [...] as of this encounter Care Teams Associate Manager Relationship Specialty Start Date End Date Justen Gale MD #2 [facility] [address] [place] [address] PCP - General Family Medicine 10/17/17 David Roberts APRN, WOOD SCRAP HANDLER #2 [place] [address] Nurse Practitioner Advanced Practice Nurse 01/31/22 Annel Rod MD #2 [facility] [address] [place] [address] Consulting Physician Endocrinology 07/01/22 documented as of this encounter
--- OUTSIDE RECORDS SUMMARY | 2024-07-11 00:53 | XMS_ITS | Encounter Summary ---
Author Organization [facility] Address [address] [place] [address] Phone Care Team Providers Care Ux Designer Name Role Phone Justen Gale MD Primary Care Provider [phone] David Roberts APRN, LOADER OPERATOR SUPERVISOR Unavailable [phone] Annel Rod MD Unavailable Reason for Visit * Reason Comments Medication Refill Encounter Details Date Type Department Care Team (Late st Contact Info) Description 08/07/2023 Refill [facility] Endocr[facility]ology - [place] #2 [place] [address] Annel Rod MD #[address] [address] Medication Refill Social History Tobacco [...] documented as of this encounter Care Teams Ux Designer Relationship Specialty Start Date End Date Justen Gale MD #2 [facility] [address] [place] [address] PCP - General Family Medicine 10/17/17 David Roberts APRN, NETTA #2 [place] [address] Nurse Practitioner Advanced Practice Nurse 01/31/22 Annel Rod MD #[address] [address] Consulting Physician Endocrinology 07/01/22 documented as of this encounter
--- OUTSIDE RECORDS SUMMARY | 2024-07-11 00:53 | XMS_ITS | Encounter Summary ---
Author Organization [facility] Address [address] [place] [address] Phone Care Team Providers Care Gun Synchronizer Name Role Phone Justen Gale MD Primary Care Provider [phone] David Roberts APRN, NURSING HOME ASSISTANT ADMINISTRATOR Unavailable [phone] Annel Rod MD Unavailable Reason for Visit * Reason Comments Medication Refill Encounter Details Date Type Department Care Team (Late st Contact Info) Description 03/05/2023 Refill [facility] - Family [facility] #2 [place] [address] Pili Elkins APRN, NURSING HOME ASSISTANT ADMINISTRATOR #[address] [address] Medication Refill [...] discontinued on 10/19/2022 by Justen Gale MD PRODUCTION OPERATOR documented in this encounter Plan of Treatment Not on file documented as of this encounter Visit Diagnoses Diagnosis Essential hypertension Unspecified essential hypertension documented in this encounter Additional Health Concerns Assessment Noted Time PHQ-9 Depression Total Score: 8 01/18/20 23 2:24 PM CDT documented as of this encounter Care Teams Gun Synchronizer Relationship Specialty Start Date End Date Justen Gale MD #[address] [address] PCP - General Family Medicine 10/17/17 David Roberts APRN, CNP #2 [place] [address] Nurse Practitioner Advanced Practice Nurse 01/31/22 Annel Rod MD #[address] [address] Consulting Physician Endocrinology 07/01/22 documented as of this encounter
--- OUTSIDE RECORDS SUMMARY | 2024-07-11 00:53 | XMS_ITS | Encounter Summary ---
Author Organization [facility] Address [address] [place] [address] Phone Care Team Providers Care Activities Officer Name Role Phone Lavonne Hathaway MD Primary Care Provider + [phone] Liu Jerez MD Unavailable [phone] Albert Corbin MD Unavailable [phone] Justen Gale MD Primary Care Provider + [phone] Lavonne Hathaway MD Primary Care Provider + [phone] Justen Gale MD Primary Care Provider [phone] Khris Arthur MD Unavailable + [phone] Ko Melendez MD Unavailable [phone] John Paul Moyer MD Unavailable Annel Rod MD Unavailable Anali MARSHALL MD, Carlos M. Unavailable [phone] Encounter Details Date Type Department Care Team ([facility] Contact Info) Description 05/15/2017 Orders Only [facility] Scanning, Provider Social History Tobacco Use Types Packs/Day Years Used Date Smoking Tobacco: Former Alcohol Use Standard Drinks/Week Comments No 0 (1 standard drink = 0.6 oz pur e alcohol) Comments Unknown Sex and Gender Information Value Date Recorded Sex Assigned at Not on file Legal Sex Female 12:24 AM QUILT STUFFER Gender Identity Not on file Sexual Orientation [...] COVID: Recovered 02/10/2022 02/10/2022 06/10/2022 3:05 AM QUILT STUFFER Exposure, COVID-19 Comment:Added automatically based on COVID19 lab answers indicating exposure risk 02/11/2022 02/11/2022 02/15/2022 9:06 AM C DT COVID: Suspected 05/14/2022 05/14/2022 05/14/2022 10:41 AM QUILT STUFFER COVID: Suspected 06/07/2022 06/07/2022 06/07/2022 12:28 PM QUILT STUFFER COVID: Suspected 06/21/2022 06/21/2022 06/21/2022 2:12 AM QUILT STUFFER COVID: Suspected 10/05/2022 10/05/2022 10/05/2022 7:40 PM CDT COVID: Suspected 01/04/2024 01/04/2024 01/04/2024 10:30 PM CDT COVID: Suspected 02/14/2024 02/14/2024 02/15/2024 12:36 AM CDT COVID: Suspected 07/01/2024 07/01/2024 07/01/2024 2:53 PM CDT COVID: Suspected 07/01/2024 07/01/2024 07/02/2024 3:05 AM CDT documented as of this encounter Care Teams Activities Officer Relationship Specialty Start Date End Date Lavonne Hathaway MD [address] [place] [address] [place] [address] PCP - General 08/16/16 08/17/17 Justen Gale MD [address] [facility] [address] [address] PCP - General 08/18/17 08/22/17 Lavonne Hathaway MD [address] [place] [address] [place] [address] PCP - General Family Medicine 08/23/17 10/08/17 Justen Gale MD 2 [facility] [place] [address] [address] PCP - General 10/09/17 Liu Jerez MD [address] [place] [address] [place] [address] Consulting Physician Gastroenterology 07/28/17 [place] [address] [facility] [address] [place] [address] Consulting Physician Pulmonary Disease 08/03/17 Khris Arthur MD [address] [facility] [address] [place] [address] Medical Oncologist/Form Layer Medical Oncology 10/23/17 [place] [address] [facility] [address] [place] [address] Surgeon Orthopedic Surgery 10/23/17 [place] [address] [facility] [address] [place] [address] Consulting Physician Pain Management 10/23/17 [place] [address] [facility] [address] [place] [address] Referring Physician General Surgery 01/26/18 [place] [address] [facility] [address] [place] [address] Consulting Physician Neurology 01/26/18 documented as of this encounter
--- OUTSIDE RECORDS SUMMARY | 2024-07-11 00:53 | XMS_ITS ---
Author Organization [facility] Address [address] [facility] [place] [address] Care Team Providers Care Set Up / Operator Name Role Phone Justen Gale MD Primary Care Provider [phone] Active Problems Problem Noted Date Diagnosed Date [...] treatments are documented for this patient in [facility]. Treatments may have been administered in another system. Lifetime Dose Tracking * Chemical Lifetime Dose Automatic Entry Manual Entr y Dose Length Product 1,838 mGy-cm 1,838 mGy-cm 0 mGy-cm Resolved Problems Problem Noted Date Diagnosed Date Resolved Date Rash 03/21/2023 04/18/2023
--- OUTSIDE RECORDS SUMMARY | 2024-07-11 00:53 | XMS_ITS | Encounter Summary ---
Author Organization [facility] Address [address] [place] [address] Phone Care Team Providers Care Land Lease Information Clerk Name Role Phone Justen Gale MD Primary Care Provider [phone] David Roberts APRN, RN FIRST ASSISTANT Unavailable [phone] Annel Rod MD Unavailable Reason for Visit * Reason Comments Medication Refill Encounter Details Date Type Department Care Team (Late st Contact Info) Description 03/02/2023 Refill [facility] - Family Medicine [facility] [address] [place] [id number] Justen Gale MD [address] [address] Medication Refill Social History Tobacco Use Types [...] Tamika Villarreal RN - 03/02/2023 8:51 AM INFORMATION SYSTEMS TECHNICIAN Medication failed the protocol, provider to review [...] Dept 01/17/23 Office Visit [facility]22 Office Visit Pili Elkins APRN, NETTA [facility] [place] 07/05/22 Office Visit Pili Elkins APRN, NETTA [facility] [place] 05/02/22 Office Visit Justen Gale [facility] 03/03/22 Office Visit Pili Elkins APRN, NETTA [facility] [place] Showing recent visits within past 365 days and meeting all other requirements Future Appointments No visits were found meeting these conditions. Showing future appointments within next 90 days and meeting all other requirements RMATION SYSTEMS TECHNICIAN documented in this encounter Plan of Treatment Not on file documented as of this encounter Visit Diagnoses Not on filedocumented in this encounter Additional Health Concerns Assessment Noted Time PHQ-9 Depression Total Score: 8 01/18/20 23 2:24 PM CDT documented as of this encounter Care Teams Land Lease Information Clerk Relationship Specialty Start Date End Date Justen Gale MD #[address] [address] PCP - General Family Medicine 10/17/17 David Roberts APRN, NETTA [address] [place] [address] Nurse Practitioner Advanced Practice Nurse 01/31/22 Annel Rod MD #[address] [id number] Consulting Physician Endocrinology 07/01/22 documented as of this encounter
--- OUTSIDE RECORDS SUMMARY | 2024-07-11 00:53 | XMS_ITS | Encounter Summary ---
Author Organization [facility] Address [address] [place] [address] Phone Care Team Providers Care Store Operations Specialist Name Role Phone Justen Gale MD Primary Care Provider [phone] David Roberts APRN, OIL PIPE INSPECTOR Unavailable [phone] Annel Rod MD Unavailable Reason for Visit * Reason Comments Medication Refill Encounter Details Date Type Department Care Team (Late st Contact Info) Description 04/13/2023 Refill [facility] - Endocrinology - [place] [address] [place] [address] Annel Rod MD #[address] [address] Medication Refill Social History Tobacco [...] Jennifer Wang, RN - 04/14/2023 10:00 AM RAND SEWER Requested Prescriptions Pending Prescriptions Disp Refills ??? Continuous Blood Gluc Sensor (FreeStyle Eileen 2 Sensor) Misc [Pharmacy Med Name: FREESTYLE EILEEN 2 SENSOR] 6 Each 1 Sig: APPLY 1 SENSOR AND WEAR FOR 14 DAYS TO CHECK BLOOD SUGAR Next appt: 05/30/2023 SEWER documented in this encounter Plan of Treatment Not on file documented as of this encounter Visit Diagnoses Not on filedocumented in this encounter Additional Health Concerns Assessment Noted Time PHQ-9 Depression Total Score: 8 01/18/20 23 2:24 PM CDT documented as of this encounter Care Teams Store Operations Specialist Relationship Specialty Start Date End Date Justen Gale MD #[address] [address] PCP - General Family Medicine 10/17/17 David Roberts APRN, NETTA [address] [place] [address] Nurse Practitioner Advanced Practice Nurse 01/31/22 Annel Rod MD #[address] [address] Consulting Physician Endocrinology 07/01/22 documented as of this encounter
[2024-07-11 00:58] VITALS: BP 131/55; PULSE 83; RESP 18; TEMP 36.6; O2SAT 99
[2024-07-11] MEDS: HYDROcodone/acetaminophen (*CRX) 5-325 MG TABLET 1 TAB PO (03:12)
[2024-07-11 03:26] LABS: Basophils Percent Auto 0.3 % (0.2-1.2); Eosinophils Absolute Auto 0.2 K/mm3 (0-0.3); Eosinophils Percent Auto 2.6 % (0-4.4); Hematocrit 41.2 % (37.0-47.0); Hemoglobin 13.2 g/dL (12.0-15.0); Immature Granulocyte Absolute 0.03 K/mm3 (0.00-0.031); Immature Granulocyte Percent A 0.3 % (0-0.5); Lymphocytes Absolute Auto 2.24 K/mm3 (0.9-3.2); Lymphocytes Percent Auto 24.9 % (18.3-44.2); Mean Corpuscular Hemoglobin 29.3 pg (26-34); Mean Corpuscular Volume 91.6 fl (80-100); Mean Platelet Volume 9.7 fl (7.4-10.4); Monocytes Percent Auto 11.3 % (2.6-8.5); Neutrophils Absolute Auto 5.5 K/mm3 (1.3-6.7); Neutrophils Percent Auto 60.6 % (45.5-73.1); Platelet Count Result 217 k/mm3 (150-375); Red Cell Distribution Width 13.3 % (11.5-14.5)
--- OUTSIDE RECORDS SUMMARY | 2024-07-11 03:31 | XMS_ITS | Encounter Summary ---
Author Organization [facility] Address [address] [place] [address] Phone Care Team Providers Care Starch Treating Assistant Name Role Phone Justen Gale MD Primary Care Provider [phone] David Roberts APRN, GOLF STUD RIVETER Unavailable [phone] Annel Rod MD Unavailable Reason for Visit * Reason Onset Date Comments Sore Throat 06/29/2020 Encounter Details Date Type Department Care Team (Late st Contact Info) Description 06/29/2020 Telephone [facility] [address] [place] [address] Justen Gale MD [address] [address] Sore Throat Social History Tobacco Use Types [...] COVID-19? No / Unsure 06/29/2020 8:43 AM HOME HEALTH CLINICIAN documented as of this encounter Miscellaneous Notes * Telephone Encounter - Gail Lucero RN - 06/29/2020 3:53 PM CST Attempted to call mailbox is full. Pt does not need testing HEALTH CLINICIAN * Telephone Encounter - Vince Hermosillo MD - 06/29/2020 3:13 PM CST No covid testing needed. If the er thought that it was warranted then they would have done this. HEALTH CLINICIAN * Telephone Encounter - Marlys Sorensen RN - 06/29/2020 8:36 AM CST Patient calling. Patient is calling to schedule Hospital/ED/Prompt-Care follow up appointment. Hospital/ED/Prompt-Care Site: [facility] ED Records Requested: Yes Reason for Hospitalization/ED/Prompt-Care [...] f/up and yearly PAP appointments? Please advise. HEALTH CLINICIAN documented in this encounter Plan of Treatment Not on file documented as of this encounter Visit Diagnoses Not on filedocumented in this encounter Additional Health Concerns Assessment Noted Time PHQ-9 Depression Total Score: 0 09/08/19 19 1:00 PM CDT documented as of this encounter Care Teams Starch Treating Assistant Relationship Specialty Start Date End Date Justen Gale MD #[address] [address] PCP - General Family Medicine 10/17/17 David Roberts APRN, GOLF STUD RIVETER [address] [place] [address] Nurse Practitioner Advanced Practice Nurse 01/31/22 Annel Rod MD #[address] [address] Consulting Physician Endocrinology 07/01/22 documented as of this encounter
--- OUTSIDE RECORDS SUMMARY | 2024-07-11 03:31 | XMS_ITS | Clinical Summary ---
Author Organization [facility] Address [address] [place] [address] Care Team Providers Care Stumper Feller Name Role Phone Liu Jerez MD Unavailable [phone] Albert Corbin MD Unavailable Justen Gale MD Primary Care Provider Khris Arthur MD Unavailable [phone] Ko Melendez MD Unavailable [phone] John Paul Moeyr MD Unavailable Annel Rod MD Unavailable Anali [...] 05/22/2024 Assessment & Plan (05/26/2024 10:08 AM WHIPPED TOPPING MIXER): Presenting with urinary symptoms of right flank [...] 05/22/2024 Assessment & Plan (05/25/2024 7:52 AM WHIPPED TOPPING MIXER): Hx of breast cancer c/b DVT/bilateral Pes [...] 05/22/2024 Assessment & Plan (05/22/2024 1:14 PM WHIPPED TOPPING MIXER): -long-standing chronic back pain -CT L spine [...] 09/12/2021 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) 2021 meterman (current) use 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 inhibitors 10/17/2019 Thyroid [...] complication, without long-term current use of insulin ([facility]) 10/23/2017 Assessment & Plan (10/23/2017 2:06 [...] 10/13/2017 Assessment & Plan (05/22/2024 12:29 PM WHIPPED TOPPING MIXER): -Hx stage II, ER positive, HER2 negative [...] 08/01/2017 Assessment & Plan (05/22/2024 12:33 PM WHIPPED TOPPING MIXER): -Hx LUL -Hospital provided CPAP ordered History of DVT (deep vein thrombosis) 08/01/2017 History of pulmonary embolism 08/01/2017 Generalized weakness 07/27/2017 Dyspnea 07/27/2017 Unintentional weight loss 07/27/2017 Acute cystitis without hematuria 07/27/2017 Nausea and vomiting 07/26/2017 Overview (07/28/2017): Added automatically from request for surgery [id number] Pulmonary embolism 08/09/2016 Assessment & Plan (10/23/2017 2:05 AM CDT): On Rivaroxaban Lymphedema of left upper extremity 08/09/2016 Assessment & Plan (05/25/2024 7:53 AM WHIPPED TOPPING MIXER): S/p L axillary lymph node dissection 2014, [...] syndrome Assessment & Plan (05/22/2024 11:18 AM WHIPPED TOPPING MIXER): -continue home Requip 5mg nightly Pain of lower extremity 03/12/2013 Overview (07/29/2016): Leg pain Essential hypertension Assessment & Plan (05/23/2024 10:42 AM WHIPPED TOPPING MIXER): -Chart history of HTN but not on meds -BP elevated on admission, likely some pain contributing -Monitor closely once pain under adequate control, discussed following up with PCP for this Chronic anticoagulation Restless leg syndrome 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 Type 2 diabetes mellitus without complication Assessment & Plan (05/24/2024 1:39 PM WHIPPED TOPPING MIXER): -Last Ha1c 8.4 in 2023, repeat 8.7 [...] CDT - 07/01/2024 10:18 PM CDT Emergency [facility] Emergency Department [facility] [place], [place] [id number] Myalgia (Primary Dx); Viral syndrome Discharge Disposition: Discharge to home or self care 05/30/2024 Orders Only [facility] Oncology [address] [facility] Floor [address] [place] [address] Radha Mcgrath RN Lymphedema of left arm (Primary Dx); Malignant neoplasm of upper-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, unspecified estrogen receptor status (HCC); Malignant neoplasm of overlapping sites of left female breast, unspecified estrogen receptor status (HCC); Malignant neoplasm of female breast, unspecified estrogen receptor status, unspecified laterality, unspecified site of breast (HCC) 05/24/2024 Telephone [facility] [address] [place] [address] Radha Warner RN 05/23/2024 8:10 AM WHIPPED TOPPING MIXER Ancillary Procedure [facility] Vascular Lab IP [address] [facility] [address] [place] [address] 05/21/2024 9:12 PM WHIPPED TOPPING MIXER - 05/26/2024 6:45 PM WHIPPED TOPPING MIXER Hospital Encounter [facility] [address] [place] [address] Jimmie Zavala MD Liss, MD Ra Parnell, MD Sebastian Claros Rehan, MD Left arm pain (Primary Dx); Left leg pain; Shortness of breath; Urinary tract infection without hematuria, site unspecified; Allergy to drug Discharge Disposition: Discharge to home or self care 05/21/2024 12:58 PM WHIPPED TOPPING MIXER - 05/21/2024 11:59 PM WHIPPED TOPPING MIXER Hospital Encounter [facility]BULANCE BILLING [address] [place] [address] Discharge Disposition: Discharge to home or self care 05/21/2024 11:00 AM WHIPPED TOPPING MIXER - 05/21/2024 11:59 PM WHIPPED TOPPING MIXER Hospital Encounter [facility] - Breast Imaging [facility] Floor [address] [place] [address] History of breast cancer; Axillary pain, left Discharge Disposition: Discharge to home or self care 05/16/2024 Telephone [facility] Oncology [address] [place] [address] 8 [place] [phone] Jeanine Ba, Cordelia 05/16/2024 Orders Only [facility] Oncology [address] [place] [address] 8 [place] [phone] Radha Mcgrath RN History of breast cancer (Primary Dx); Axillary pain, left 05/16/2024 Orders Only [facility] [address] [place] [address] 8 [place] [phone] Khris Arthur MD Swelling of left upper extremity (Primary Dx); Swelling of left lower extremity 05/14/2024 4:45 PM WHIPPED TOPPING MIXER Lab [facility] - Lab Collection [facility] Floor [address] [place] [address] Malignant neoplasm of upper-inner quadrant of left breast in female, estrogen receptor positive (HCC) 05/14/2024 4:36 PM WHIPPED TOPPING MIXER - 05/14/2024 11:59 PM WHIPPED TOPPING MIXER Hospital Encounter [facility] - Diagnostic Imaging [address] [facility] [address] [place] [address] Malignant neoplasm of upper-inner quadrant of left breast in female, estrogen receptor positive (HCC) Discharge Disposition: Discharge to home or self care 05/14/2024 4:00 PM WHIPPED TOPPING MIXER Lab [facility] Lab [address] [facility] Floor [address] [place] [address] Malignant neoplasm of upper-inner quadrant of left breast in female, estrogen receptor positive (HCC) 05/14/2024 3:30 PM WHIPPED TOPPING MIXER Office Visit [facility] Oncology [address] [facility] Floor [address] [place] [address] Khris Arthur MD Swelling of right lower extremity (Primary Dx); Malignant neoplasm of upper-inner quadrant of left breast in female, estrogen receptor positive (HCC); Swelling of right upper extremity; Swelling of left upper extremity; Swelling of left lower extremity 04/22/2024 Telephone [facility] On[facility] [address] [place] [address] 8 [place] [address] Radha Mcgrath RN 04/19/2024 Telephone [facility] [id number] [place] [address] Lalita Braun, NURIS Scheduling Appointments [...] drink = 0.6 oz pur e alcohol) [facility] Utilities Answer Date Recorded In the past 12 months has [employer], oil, or water [employer] threatened to shut off services in your [...] week 05/24/2024 How often do you attend [facility] or synagogue services? More than 4 times per year [...] in a residential (including now)? No 08/15/2023 Housing Stability Vital Sign Answer [place] e Recorded In the last 12 months, was t here a time when you were not able to pay the mortgage or rent on time? No 05/24/2024 In the past 12 months, how m any times have you moved where you were living? 0 05/24/2024 At any time in the past 12 m [place] [place], were you homeless or living in a residential (including now)? No 05/24/2024 Personal Safety Answer Date Recorded Have you ever been in or are you currently in a harmful physical or emotional relationship or is someone making you feel afraid or unsafe? Denies 07/01/2024 Comments No Sex and Gender Information Value Date Recorded Sex Assigned at Not on file Legal Sex Female 12:24 AM WHIPPED TOPPING MIXER Gender Identity Not on file Sexual [...] GLUCOSE DEVICE Routine 05/26/2024 4 :27 PM WHIPPED TOPPING MIXER POCT GLUCOSE DEVICE Routine 05/26/2024 1 1:38 AM WHIPPED TOPPING MIXER POCT GLUCOSE DEVICE Routine 05/26/2024 8 :12 AM WHIPPED TOPPING MIXER EGFR Routine 05/26/2024 12:05 AM WHIPPED TOPPING MIXER DIFFERENTIAL AUTO Routine 05/26/2024 12: 05 AM WHIPPED TOPPING MIXER PHOSPHORUS Routine 05/26/2024 12:05 AM WHIPPED TOPPING MIXER COMPREHENSIVE METABOLIC PANEL Routine 05/26/2024 12:05 AM WHIPPED TOPPING MIXER MAGNESIUM Routine 05/26/2024 12:05 AM WHIPPED TOPPING MIXER CBC WITH AUTO DIFFERENTIAL Routine 05/26/2024 12:05 AM WHIPPED TOPPING MIXER POCT GLUCOSE DEVICE Routine 05/25/2024 7 :44 PM WHIPPED TOPPING MIXER POCT GLUCOSE DEVICE Routine 05/25/2024 5 :24 PM WHIPPED TOPPING MIXER POCT GLUCOSE DEVICE Routine 05/25/2024 1 1:37 AM WHIPPED TOPPING MIXER POCT GLUCOSE DEVICE Routine 05/25/2024 7 :27 AM WHIPPED TOPPING MIXER EGFR Routine 05/25/2024 12:20 AM WHIPPED TOPPING MIXER DIFFERENTIAL AUTO Routine 05/25/2024 12: 20 AM WHIPPED TOPPING MIXER PHOSPHORUS Routine 05/25/2024 12:20 AM WHIPPED TOPPING MIXER COMPREHENSIVE METABOLIC PANEL Routine 05/25/2024 12:20 AM WHIPPED TOPPING MIXER MAGNESIUM Routine 05/25/2024 12:20 AM WHIPPED TOPPING MIXER CBC WITH AUTO DIFFERENTIAL Routine 05/25/2024 12:20 AM WHIPPED TOPPING MIXER POCT GLUCOSE DEVICE Routine 05/24/2024 8 :13 PM WHIPPED TOPPING MIXER POCT GLUCOSE DEVICE Routine 05/24/2024 5 :17 PM WHIPPED TOPPING MIXER POCT GLUCOSE DEVICE Routine 05/24/2024 1 2:49 PM WHIPPED TOPPING MIXER POCT GLUCOSE DEVICE Routine 05/24/2024 9 :22 AM WHIPPED TOPPING MIXER HERPES SIMPLEX VIRUS (HSV) PCR Routine 05/24/2024 8:47 AM WHIPPED TOPPING MIXER POCT GLUCOSE DEVICE Routine 05/24/2024 8 :22 AM WHIPPED TOPPING MIXER EGFR Routine 05/24/2024 12:29 AM WHIPPED TOPPING MIXER DIFFERENTIAL AUTO Routine 05/24/2024 12: 29 AM WHIPPED TOPPING MIXER PHOSPHORUS Routine 05/24/2024 12:29 AM WHIPPED TOPPING MIXER COMPREHENSIVE METABOLIC PANEL Routine 05/24/2024 12:29 AM WHIPPED TOPPING MIXER MAGNESIUM Routine 05/24/2024 12:29 AM WHIPPED TOPPING MIXER CBC WITH AUTO DIFFERENTIAL Routine 05/24/2024 12:29 AM WHIPPED TOPPING MIXER POCT GLUCOSE DEVICE Routine 05/23/2024 8 :16 PM WHIPPED TOPPING MIXER POCT GLUCOSE DEVICE Routine 05/23/2024 6 :14 PM WHIPPED TOPPING MIXER POCT GLUCOSE DEVICE Routine 05/23/2024 1 2:17 PM WHIPPED TOPPING MIXER US VEIN DUPLEX LOWER EXTREMITY BILATERAL COMPLETE IP Routine 05/23/2024 11:45 AM WHIPPED TOPPING MIXER POCT GLUCOSE DEVICE Routine 05/23/2024 8 :16 AM WHIPPED TOPPING MIXER DIFFERENTIAL AUTO Routine 05/23/2024 2:3 0 AM WHIPPED TOPPING MIXER CBC WITH AUTO DIFFERENTIAL Routine 05/23/2024 2:30 AM WHIPPED TOPPING MIXER EGFR Routine 05/23/2024 12:42 AM WHIPPED TOPPING MIXER LACTATE DEHYDROGENASE Routine 05/23/2024 12:42 AM WHIPPED TOPPING MIXER URIC ACID Routine 05/23/2024 12:42 AM WHIPPED TOPPING MIXER TYPE AND SCREEN Timed 05/23/2024 12:42 AM WHIPPED TOPPING MIXER PHOSPHORUS Routine 05/23/2024 12:42 AM WHIPPED TOPPING MIXER COMPREHENSIVE METABOLIC PANEL Routine 05/23/2024 12:42 AM WHIPPED TOPPING MIXER MAGNESIUM Routine 05/23/2024 12:42 AM WHIPPED TOPPING MIXER POCT GLUCOSE DEVICE Routine 05/22/2024 8 :56 PM WHIPPED TOPPING MIXER POCT GLUCOSE DEVICE Routine 05/22/2024 6 :09 PM WHIPPED TOPPING MIXER POCT GLUCOSE DEVICE Routine 05/22/2024 4 :[address] ABDOMEN PELVIS W CONTRAST ED 05/22/2024 2:32 PM WHIPPED TOPPING MIXER POCT GLUCOSE DEVICE Routine 05/22/2024 1 2:58 PM WHIPPED TOPPING MIXER POCT GLUCOSE DEVICE Routine 05/22/2024 9 :29 AM WHIPPED TOPPING MIXER POCT GLUCOSE DEVICE Routine 05/22/2024 6 :[address] CHEST PE W CONTRAST ED 05/22/2024 1:31 AM WHIPPED TOPPING MIXER D-DIMER, QUANTITATIVE Routine 05/22/2024 12:24 AM WHIPPED TOPPING MIXER URINALYSIS, MICROSCOPIC ONLY Routine 05/21/2024 11:09 PM WHIPPED TOPPING MIXER TROPONIN I HIGH-SENSITIVITY 2-HOUR Timed 05/21/2024 11:09 PM WHIPPED TOPPING MIXER URINE CULTURE Routine 05/21/2024 11:09 PM WHIPPED TOPPING MIXER RESPIRATORY PATHOGEN PANEL Routine 05/21/2024 11:09 PM WHIPPED TOPPING MIXER URINALYSIS AND REFLEX TO MICROSCOPIC AND CULTURE Routine 05/21/2024 11:09 PM WHIPPED TOPPING MIXER POCT GLUCOSE DEVICE Routine 05/21/2024 8 :55 PM WHIPPED TOPPING MIXER TROPONIN I HIGH-SENSITIVITY 4-HOUR Timed 05/21/2024 7:26 PM WHIPPED TOPPING MIXER LIPID PANEL STAT 05/21/2024 4:20 PM WHIPPED TOPPING MIXER HEMOGLOBIN A1C STAT 05/21/2024 4:20 PM WHIPPED TOPPING MIXER EGFR STAT 05/21/2024 4:20 PM WHIPPED TOPPING MIXER DIFFERENTIAL AUTO STAT 05/21/2024 4:2 0 PM WHIPPED TOPPING MIXER TROPONIN I HIGH-SENSITIVITY SERIES (BASELINE, 2HR, 4HR, 6HR) STAT 05/21/2024 4:20 PM WHIPPED TOPPING MIXER COMPREHENSIVE METABOLIC PANEL STAT 05/21/2024 4:20 PM WHIPPED TOPPING MIXER CBC WITH AUTO DIFFERENTIAL STAT 05/21/2024 4:20 PM WHIPPED TOPPING MIXER XR CHEST PA LATERAL 2 VIEWS ED 05/21/2024 2:23 PM WHIPPED TOPPING MIXER POCT GLUCOSE DEVICE Routine 05/21/2024 1 :39 PM WHIPPED TOPPING MIXER ECG 12-LEAD STAT 05/21/2024 1:36 PM WHIPPED TOPPING MIXER US AXILLARY LEFT Schedule Routine, Read Routine (OP Routine) 05/21/2024 12:13 PM WHIPPED TOPPING MIXER History of breast cancer Axillary pain, left URINALYSIS, MICROSCOPIC ONLY Routine 05/14/2024 4:50 PM WHIPPED TOPPING MIXER Malignant neoplasm of upper-inner quadrant of left breast in female, estrogen receptor positive (HCC) URINALYSIS AND REFLEX TO MICROSCOPIC AND CULTURE Routine 05/14/2024 4:50 PM WHIPPED TOPPING MIXER Malignant neoplasm of upper-inner quadrant of left breast in female, estrogen receptor positive (HCC) XR RIBS LEFT 2 VIEWS Schedule Routine, Read Routine (OP Routine) 05/14/2024 4:44 PM WHIPPED TOPPING MIXER Malignant neoplasm of upper-inner quadrant of left [...] breath since last night. Took tylenol just LOOM STARTER. 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 AR: VALERY Report ID: [id number] Reading Location: [place] [address] Procedure Note Juve Gallegos MD - 07/01/2024 [...] Juve Gallegos M.D. AR: VALERY Report ID: [id number] Reading Location: [place] [address] us [address]ON IMG CT PROCEDURES Final Resu lt * (ABNORMAL) Troponin T high-sensitivity 2-hour (07/01/2024 3:43 PM CDT) Trop T hs 27(H) <=14 ng/L Comment: Interpretive Data For further hscTnT resources including the diagnostic algorithm and an aid in interpretation, copy and paste this link: https://nrl.testcatalog.org/show/hsTrop Current Interpretive Data last revised 2020. Testing performed by: [address] [address] Trop T hs delta 0 ng/L MARY JANE PHAM Comment:Testing performed by : [address] [address] Trop T hs interp Insignificant MARY JANE PHAM Comment:Testing performed by : [address] [address] Blood 07/01/2024 3:43 PM CDT 07/01/2024 3:52 PM CDT us Ilana Stevens MD LAB BLOOD ORDERABLES F inal Result MARY JANE PHAM [address] Department [place] [address] * (ABNORMAL) Urinalysis reflex to microscopic and culture Urine (07/01/2024 3:43 PM CDT) Color, ur Yellow Yellow Comment:Testing performed by : [address] [address] Clarity, ur Clear Clear MARY JANE Comment:Testing performed by : [address] [address] Specific gravity, ur 1.020 1.003 - 1.030 MARY JANE Comment:Testing performed by : [address] [address] pH, urine 6.0 MARY JANE Comment: Interpretive [...] formation. Source: [facility] Surgical Current Interpretive Data was last revised on 2017 Testing performed by: [address] [address] Protein, ur ql Negative Negative MARY JANE Comment:Testing performed by : [address] [address] Glucose, ur ql 2+(A) Negative MARY JANE Comment:Testing performed by : [address] [address] Ketones, ur Negative Negative MARY JANE Comment:Testing performed by : [address] [address] Bilirubin, ur Negative Negative MARY JANE Comment:Testing performed by : [address] [address] Blood, ur Trace(A) Negative MARY JANE Comment:Testing performed by : [address] [address] Urobilinogen, ur <2.0 <2.0 mg/dL MARY JANE Comment:Testing performed by : [address] [address] Nitrite, ur Negative Negative MARY JANE Comment:Testing performed by : [address] [address] Leukocyte esterase, ur Negative Negative MARY JANE Comment:Testing performed by : [address] [address] UA reflex comment Reflex to microscopic UA will be performed. MARY JANE Comment:Testing performed by : [address] [address] Urine 07/01/2024 3:43 PM CDT 07/01/2024 3:52 PM CDT Ilana Stevens MD LAB MICROBIOLOGY - GEN ERAL ORDERABLES Final Result Performing Organization Address [facility]/ZIP Co de Phone Number [facility] [address] [place] [address] * (ABNORMAL) Urinalysis, microscopic only (07/01/2024 3:43 PM CDT) WBC, ur 0-5 0 - 5 /HPF Comment:Testing performed by : [address] [address] RBC, ur 3-5(A) 0 - 2 /HPF MARY JANE Comment:Testing performed by : [address] [address] Epithelial cells, squamous, ur 1-5 0 - 5 /HPF MARY JANE Comment:Testing performed by : [address] [address] Mucous, ur Present(A) MARY JANE Comment:Testing performed by : [address] [address] Culture Reflex Comment Reflex conditions for urine culture (WBC >10) not met. MARY JANE Comment:Testing performed by : [address] [address] Urine 07/01/2024 3:43 PM CDT 07/01/2024 3:52 PM CDT Ilana Stevens MD LAB URINE ORDERABLES F inal Result Performing Organization Address [facility]/ZIP Co de Phone Number [facility] [address] [place] [address] * XR Chest 1 Vw Portable (if [...] Romelia Bowen D.O. PS: PS Report ID: [id number] Reading Location: [id number] Procedure Note Romelia Bowen, DO - 07/01/2024 [...] Romelia Bowen D.O. PS: PS Report ID: [id number] Reading Location: [id number] Ilana Stevens MD IMG XR PROCEDURES Deann l Result * ECG 12 lead (07/01/2024 2:05 PM CDT) Ventricular Rate EKG/Min [address] [facility] Atrial Rate 76 BPM [facility] GA-Interval (MSEC) [address] [facility] QRS-Interval (MSEC) [address] [facility] QT-Interval (MSEC) [address] [facility] QTc 434 ms [facility] P [place] 26 degrees [facility] R [place] 22 degrees [facility] T [place] 46 degrees [facility] Diagnosis Normal sinus rhythm Normal ECG When compared with ECG of 28-DEC-2023 12:49, No significant change was found Confirmed by DUTCH BURGOS M.D. ([id number]) on 07/01/2024 10:10:22 PM [facility] 07/01/2024 2:05 PM CDT 07/01/2024 10:10 PM CDT us Ilana Stevens MD ECG ORDERABLES Final Result [facility] * (ABNORMAL) Troponin T high-sensitivity series (baseline, 2hr, 4hr, 6hr) (07/01/2024 2:02 PM CDT) Pathologist [facility] Trop T hs 27(H) <=14 ng/L Comment: Interpretive Data For further hscTnT resources including the diagnostic algorithm and an aid in interpretation, copy and paste this link: https://nrl.testcatalog.org/show/hsTrop Current Interpretive Data last revised 2020. Testing performed by: [facility], [address] [place] [address]., [address] Blood 07/01/2024 2:02 PM CDT 07/01/2024 2:12 PM CDT Ilana Stevens MD LAB BLOOD ORDERABLES F inal Result Performing Organization Address City/[facility]/ZIP Co de Phone Number MARY JANE [address] [place] [address] * Influenza A/B, RSV, and COVID-19 PCR Nasopharyngeal (07/01/2024 2:02 PM CDT) COVID-19 RNA Negative Negative Comment:Testing performed by : [address] [address] Influenza A RNA Negative Negative [facility] Comment:Testing performed by : [address] [address] Influenza B RNA Negative Negative [facility] Comment:Testing performed by : [address] [address] RSV RNA Negative Negative [facility] Comment: Interpretive data: Testing performed by [facility]. This test is performed using the [employer] Xpert Xpress CoV-2/Flu/RSV plus assay. This is a multiplex, real-time reverse transcriptase PCR assay intended for the qualitative detection of nucleic acid from SARS-CoV-2, influenza A, influenza B, and respiratory syncytial virus. This assay has been cleared by the [place] Food and Drug administration. The performance characteristics have been verified by the [facility]. Results must be considered in the clinical context, and a negative result does not rule out infection. Interpretive Data last revised 2023 Testing performed by: [address] [address] Nasopharyngeal 07/01/2024 2: 02 PM CDT 07/01/2024 2:12 PM CDT Narrative MARY JANE - 07/01/2024 2:52 PM CDT Is the Patient experiencing symptoms consistent with COVID?->Yes Ilana Stevens MD LAB MICROBIOLOGY - GEN ERAL ORDERABLES Final Result Performing Organization Address City/[facility]/ZIP Co de Phone Number MARY JANE [address] [place] [address] * eGFR (07/01/2024 2:02 PM CDT) Pathologist [facility] eGFR >90 >=60 mL/min/1. 73 m2 Comment: [...] last reviewed 2021. Testing performed by: [address] [address] Blood 07/01/2024 2:02 PM CDT 07/01/2024 2:12 PM CDT us Ilana Stevens MD LAB BLOOD ORDERABLES F inal Result [facility] [address] Department [place] [address] * Differential, auto (07/01/2024 2:02 PM CDT) [facility] Neutrophil abs 5.3 1.5 - 6.5 K/cumm Comment:Testing performed by : [address] [address] Imm gran abs 0.0 0.0 - 0.1 K/cumm MARY JANE PHAM Comment:Testing performed by : [address] [address] Lymphocyte abs 2.6 0.8 - 3.3 K/cumm MARY JANE Comment:Testing performed by : [address] [address] Monocyte abs 0.8 0.2 - 0.8 K/cumm MARY JANE Comment:Testing performed by : [address] [address] Eosinophil abs 0.2 0.0 - 0.5 K/cumm [facility] Comment:Testing performed by : [address] [address] Basophil abs 0.0 0.0 - 0.1 K/cumm [facility] Comment:Testing performed by : [address] [address] Neutrophil pct 59.1 % [facility] Comment: Interpretive Data Percent cell count reference ranges are not reported, since discordance with absolute values may lead to misinterpretation of CBC data. Current Interpretive Data was last revised on 2017. Testing performed by: [address] [address] Imm gran pct 0.2 % [facility] Comment: Interpretive Data Percent cell count reference ranges are not reported, since discordance with absolute values may lead to misinterpretation of CBC data. Current Interpretive Data was last revised on 2017. Testing performed by: [address] [address] Lymphocyte pct 29.0 % [facility] Comment: Interpretive Data Percent cell count reference ranges are not reported, since discordance with absolute values may lead to misinterpretation of CBC data. Current Interpretive Data was last revised on 2017. Testing performed by: [address] [address] Monocyte pct 9.3 % [facility] Comment: Interpretive Data Percent cell count reference ranges are not reported, since discordance with absolute values may lead to misinterpretation of CBC data. Current Interpretive Data was last revised on 2017. Testing performed by: [address] [address] Eosinophil pct 2.2 % [facility] Comment: Interpretive Data Percent cell count reference ranges are not reported, since discordance with absolute values may lead to misinterpretation of CBC data. Current Interpretive Data was last revised on 2017. Testing performed by: [facility], [address] [place] [address]., [address] Basophil pct 0.2 % MARY JANE PHAM Comment: Interpretive Data Percent cell count reference ranges are not reported, since discordance with absolute values may lead to misinterpretation of CBC data. Current Interpretive Data was last revised on 2017. Testing performed by: [facility], [address] [place] [address]., [id number] Blood 07/01/2024 2:02 PM CDT 07/01/2024 2:12 PM CDT us Ilana Stevens MD LAB BLOOD ORDERABLES F inal Result MARY JANE PHAM [address] Department [place] [address] * Pro B-type natriuretic peptide (07/01/2024 2:02 [...] Last Revised Date: 2017. Testing performed by: [address] [address] Blood 07/01/2024 2:02 PM CDT 07/01/2024 2:12 PM CDT us Ilana Stevens MD LAB BLOOD ORDERABLES F inal Result [facility] [address] Department [place] [address] * (ABNORMAL) CBC with auto differential (07/01/2024 2:02 PM CDT) Pathologist [facility] WBC 9.0 3.8 - 9.9 K/cumm Comment:Testing performed by : [address] [address] Hgb 13.2 11.9 - 15.5 g/dL MARY JANE PHAM Comment:Testing performed by : [address] [address] Hct 41.1 35.6 - 45.5 % MARY JANE PHAM Comment:Testing performed by : [address] [address] Plt 277 150 - 400 K/cumm MARY JANE PHAM Comment:Testing performed by : [address] [address] MPV 9.5 9.1 - 12.3 fL MARY JANE PHAM Comment:Testing performed by : [address] [address] RBC 4.53 3.90 - 5.20 M/cumm MARY JANE PHAM Comment:Testing performed by : [address] [address] MCV 90.7 81.3 - 96.4 fL MARY JANE PHAM Comment:Testing performed by : [address] [address] MCH 29.1 27.1 - 33.3 pg MARY JANE PHAM Comment:Testing performed by : [address] [address] MCHC 32.1(L) 32.3 - 35.7 g/dL MARY JANE PHAM Comment:Testing performed by : [address] [address] RDW CV 13.2 11.1 - 14.9 % MARY JANE PHAM Comment:Testing performed by : [address] [address] RDW SD 44.2 35.7 - 48.1 fL MARY JANE PHAM Comment:Testing performed by : [address] [address] NRBC abs 0.00 0.00 - 0.01 K/cumm MARY JANE PHAM Comment:Testing performed by : [address] [address] Blood 07/01/2024 2:02 PM CDT 07/01/2024 2:12 PM CDT us Ilana Stevens MD LAB BLOOD ORDERABLES F inal Result MARY JANE [facility] Department [place] [address] * Comprehensive metabolic panel (07/01/2024 2:02 PM CDT) Sodium 137 135 - 145 mmol/L Comment:Testing performed by : [address] [address] Potassium, pl 4.2 3.3 - 4.9 mmol/L MARY JANE PHAM Comment:Testing performed by : [address] [address] Chloride 101 97 - 110 mmol/L MARY JANE PHAM Comment:Testing performed by : [address] [address] CO2 27 22 - 32 mmol/L MARY JANE PHAM Comment:Testing performed by : [address] [address] Anion gap 9 2 - 15 mmol/L [facility] Comment:Testing performed by : [address] [address] BUN 15 6 - 25 mg/dL [facility] Comment:Testing performed by : [address] [address] Creatinine 0.60 0.60 - 1.10 mg/dL [facility] Comment:Testing performed by : [address] [address] Glucose 166 70 - 199 mg/dL [facility] [...] last revised 2022. Testing performed by: [address] [address] Calcium 9.8 8.5 - 10.3 mg/dL [facility] Comment:Testing performed by : [address] [address] Bilirubin, total 0.5 0.1 - 1.2 mg/dL [facility] Comment:Testing performed by : [address] [address] Protein, pl 8.0 6.5 - 8.5 g/dL [facility] Comment:Testing performed by : [address] [address] Albumin 3.8 3.5 - 5.0 g/dL [facility] Comment:Testing performed by : [address] [address] Alk phos 72 40 - 130 Units/L [facility] Comment:Testing performed by : [address] [address] ALT 19 7 - 45 Units/L MARY JANE PHAM Comment:Testing performed by : [facility], [address] [place] [address]., [address] AST 23 10 - 45 Units/L MARY JANE PHAM Comment:Testing performed by : [facility], [address] [place] [address]., [address] Blood 07/01/2024 2:02 PM CDT 07/01/2024 2:12 PM CDT Ilana Stevens MD LAB BLOOD ORDERABLES F inal Result MARY JANE [address] Department of Laboratories [place], [place] [id number] * POCT glucose (05/26/2024 4:27 PM WHIPPED TOPPING MIXER) Glucose, POC 137 70 - 199 mg/dL Blood 05/26/2024 4:27 PM WHIPPED TOPPING MIXER 05/26/2024 4:27 PM WHIPPED TOPPING MIXER Carlos Real MD LAB POCT ORDERABLES - DEVICE Fin al Result Performing Organization Address [facility] Co de Phone Number MARY JANE [facility] [place] [address] * POCT glucose (05/26/2024 11:38 AM WHIPPED TOPPING MIXER) Glucose, POC 146 70 - 199 mg/dL Blood 05/26/2024 11:3 8 AM WHIPPED TOPPING MIXER 05/26/2024 11:38 AM WHIPPED TOPPING MIXER Result [facility] Carlos Real MD LAB POCT ORDERABLES - DEVICE Fin al Result Performing Organization Address [facility] Co de Phone Number [facility] [place] [address] * POCT glucose (05/26/2024 8:12 AM WHIPPED TOPPING MIXER) Glucose, POC 134 70 - 199 mg/dL Blood 05/26/2024 8:12 AM WHIPPED TOPPING MIXER 05/26/2024 8:12 AM WHIPPED TOPPING MIXER Carlos Real MD LAB POCT ORDERABLES - DEVICE Fin al Result Performing Organization Address [facility] Co de Phone Number MARY JANE [facility] [place] [address] * eGFR (05/26/2024 12:05 AM WHIPPED TOPPING MIXER) Pathologist [facility] eGFR >90 >=60 mL/min/1. 73 m2 Comment: [...] reviewed 2021. Blood 05/26/2024 12:0 5 AM WHIPPED TOPPING MIXER 05/26/2024 12:23 AM WHIPPED TOPPING MIXER Carlos Real MD LAB BLOOD ORDERABLES Final Resul t Performing Organization Address [facility] Co de Phone Number [facility] Department [place] [address] * (ABNORMAL) Differential, auto (05/26/2024 12:05 AM WHIPPED TOPPING MIXER) Pathologist [facility] Neutrophil abs 6.4 1.5 - 6.5 K/cumm Imm gran abs 0.0 0.0 - 0.1 K/cumm [facility] Lymphocyte abs 2.9 0.8 - 3.3 K/cumm [facility] Monocyte abs 0.9(H) 0.2 - 0.8 K/cumm [facility] Eosinophil abs 0.3 0.0 - 0.5 K/cumm [facility] Basophil abs 0.0 0.0 - 0.1 K/cumm [facility] Neutrophil pct 60.4 % [facility] Comment: Interpretive Data Percent cell count reference ranges are not reported, since discordance with absolute values may lead to misinterpretation of CBC data. Current Interpretive Data was last revised on 2017. Imm gran pct 0.4 % [facility] Comment: Interpretive Data Percent cell count reference ranges are not reported, since discordance with absolute values may lead to misinterpretation of CBC data. Current Interpretive Data was last revised on 2017. Lymphocyte pct 27.5 % [facility] Comment: Interpretive Data Percent cell count reference ranges are not reported, since discordance with absolute values may lead to misinterpretation of CBC data. Current Interpretive Data was last revised on 2017. Monocyte pct 8.2 % [facility] Comment: Interpretive Data Percent cell count reference ranges are not reported, since discordance with absolute values may lead to misinterpretation of CBC data. Current Interpretive Data was last revised on 2017. Eosinophil pct 3.1 % [facility] Comment: Interpretive Data Percent [...] on 2017. Blood 05/26/2024 12:0 5 AM WHIPPED TOPPING MIXER 05/26/2024 12:07 AM WHIPPED TOPPING MIXER us Carlos Real MD LAB BLOOD ORDERABLES Final Resul t [facility] Department [place] [address] * (ABNORMAL) CBC with auto differential (05/26/2024 12:05 AM WHIPPED TOPPING MIXER) Pathologist [facility] WBC 10.6(H) 3.8 - 9.9 K/cumm Hgb 12.5 11.9 - 15.5 g/dL [facility] Hct 39.2 35.6 - 45.5 % [facility] Plt 248 150 - 400 K/cumm [facility] MPV 9.7 9.1 - 12.3 fL [facility] RBC 4.32 3.90 - 5.20 M/cumm [facility] MCV 90.7 81.3 - 96.4 fL [facility] MCH 28.9 27.1 - 33.3 pg [facility] MCHC 31.9(L) 32.3 - 35.7 g/dL [facility] RDW CV 13.5 11.1 - 14.9 % [facility] RDW SD 45.1 35.7 - 48.1 fL [facility] NRBC abs 0.00 0.00 - 0.01 K/cumm [facility] Blood 05/26/2024 12:0 5 AM WHIPPED TOPPING MIXER 05/26/2024 12:07 AM WHIPPED TOPPING MIXER Carlos Real MD LAB BLOOD ORDERABLES Final Resul t Performing Organization Address City/[facility] de Phone Number [facility] [place] [address] * Phosphorus (05/26/2024 12:05 AM WHIPPED TOPPING MIXER) [facility] Phosphorus, pl 3.2 2.3 - 4.5 mg/dL Blood 05/26/2024 12:0 5 AM WHIPPED TOPPING MIXER 05/26/2024 12:08 AM WHIPPED TOPPING MIXER Carlos Real MD LAB BLOOD ORDERABLES Final Resul t Performing Organization Address [facility] de Phone Number [facility] [place] [address] * Magnesium (05/26/2024 12:05 AM WHIPPED TOPPING MIXER) Magnesium 1.8 1.4 - 2.5 mg/dL Blood 05/26/2024 12:0 5 AM WHIPPED TOPPING MIXER 05/26/2024 12:08 AM WHIPPED TOPPING MIXER Carlos Real MD LAB BLOOD ORDERABLES Final Resul t [facility] Department [place] [address] * (ABNORMAL) Comprehensive metabolic panel (05/26/2024 12:05 AM WHIPPED TOPPING MIXER) Pathologist [facility] Sodium 136 135 - 145 mmol/L Potassium, pl 4.2 3.3 - 4.9 mmol/L [facility] Chloride 101 97 - 110 mmol/L [facility] CO2 29 22 - 32 mmol/L [facility] Anion gap 6 2 - 15 mmol/L [facility] BUN 19 6 - 25 mg/dL [facility] Creatinine 0.67 0.60 - 1.10 mg/dL [facility] Glucose 164 70 - 199 mg/dL [facility] Comment: Interpretive Data Fasting glucose >/= 126 [...] 2022. Calcium 9.4 8.5 - 10.3 mg/dL [facility] Bilirubin, total 0.4 0.1 - 1.2 mg/dL [facility] Protein, pl 7.1 6.5 - 8.5 g/dL [facility] Albumin 3.3(L) 3.5 - 5.0 g/dL [facility] Alk phos 65 40 - 130 Units/L [facility] ALT 17 7 - 45 Units/L [facility] AST 19 10 - 45 Units/L [facility] Blood 05/26/2024 12:0 5 AM WHIPPED TOPPING MIXER 05/26/2024 12:08 AM WHIPPED TOPPING MIXER Result [facility] Carlos Real MD LAB BLOOD ORDERABLES Final Resul t Performing Organization Address [facility] de Phone Number [facility] [place] [address] * POCT glucose (05/25/2024 7:44 PM WHIPPED TOPPING MIXER) Glucose, POC 160 70 - 199 mg/dL Blood 05/25/2024 7:44 PM WHIPPED TOPPING MIXER 05/25/2024 7:44 PM WHIPPED TOPPING MIXER Result [facility] Carlos Real MD LAB POCT ORDERABLES - DEVICE Fin al Result Performing Organization Address [facility] de Phone Number [facility] [place] [address] * POCT glucose (05/25/2024 5:24 PM WHIPPED TOPPING MIXER) Glucose, POC 152 70 - 199 mg/dL Blood 05/25/2024 5:24 PM WHIPPED TOPPING MIXER 05/25/2024 5:24 PM WHIPPED TOPPING MIXER Result [facility] Carlos Real MD LAB POCT ORDERABLES - DEVICE Fin al Result Performing Organization Address [facility] de Phone Number [facility] [place] [address] * POCT glucose (05/25/2024 11:37 AM WHIPPED TOPPING MIXER) Glucose, POC 143 70 - 199 mg/dL Blood 05/25/2024 11:3 7 AM WHIPPED TOPPING MIXER 05/25/2024 11:37 AM WHIPPED TOPPING MIXER Carlos Real MD LAB POCT ORDERABLES - DEVICE Fin al Result Performing Organization Address [facility] de Phone Number [facility] [place] [address] * POCT glucose (05/25/2024 7:27 AM WHIPPED TOPPING MIXER) Glucose, POC 134 70 - 199 mg/dL Blood 05/25/2024 7:27 AM WHIPPED TOPPING MIXER 05/25/2024 7:27 AM WHIPPED TOPPING MIXER Carlos Real MD LAB POCT ORDERABLES - DEVICE Fin al Result Performing Organization Address [facility] de Phone Number [facility] [address] * eGFR (05/25/2024 12:20 AM WHIPPED TOPPING MIXER) eGFR >90 >=60 mL/min/1. 73 m2 Comment: [...] reviewed 2021. Blood 05/25/2024 12:2 0 AM WHIPPED TOPPING MIXER 05/25/2024 12:43 AM WHIPPED TOPPING MIXER Naila Guzman NP LAB BLOOD ORDERABLES Final Result Performing Organization Address [facility] Co de Phone Number MARY JANE [facility] Department [place] [address] * Differential, auto (05/25/2024 12:20 AM WHIPPED TOPPING MIXER) Neutrophil abs 5.9 1.5 - 6.5 K/cumm Imm gran abs 0.0 0.0 - 0.1 K/cumm [facility] Lymphocyte abs 2.4 0.8 - 3.3 K/cumm [facility] Monocyte abs 0.8 0.2 - 0.8 K/cumm [facility] Eosinophil abs 0.3 0.0 - 0.5 K/cumm [facility] Basophil abs 0.0 0.0 - 0.1 K/cumm [facility] Neutrophil pct 62.6 % [facility] Comment: Interpretive Data Percent cell count reference ranges are not reported, since discordance with absolute values may lead to misinterpretation of CBC data. Current Interpretive Data was last revised on 2017. Imm gran pct 0.3 % [facility] Comment: Interpretive Data Percent cell count reference ranges are not reported, since discordance with absolute values may lead to misinterpretation of CBC data. Current Interpretive Data was last revised on 2017. Lymphocyte pct 24.8 % [facility] Comment: Interpretive Data Percent cell count reference ranges are not reported, since discordance with absolute values may lead to misinterpretation of CBC data. Current Interpretive Data was last revised on 2017. Monocyte pct 8.8 % [facility] Comment: Interpretive Data Percent cell count reference ranges are not reported, since discordance with absolute values may lead to misinterpretation of CBC data. Current Interpretive Data was last revised on 2017. Eosinophil pct 3.2 % [facility] Comment: Interpretive Data Percent cell count reference ranges are not reported, since discordance with absolute values may lead to misinterpretation of CBC data. Current Interpretive Data was last revised on 2017. Basophil pct 0.3 % [facility] Comment: Interpretive Data Percent cell count reference ranges are not reported, since discordance with absolute values may lead to misinterpretation of CBC data. Current Interpretive Data was last revised on 2017. Blood 05/25/2024 12:2 0 AM WHIPPED TOPPING MIXER 05/25/2024 12:29 AM WHIPPED TOPPING MIXER Naila Guzman [employer] LAB BLOOD ORDERABLES Final Result Performing Organization Address City/[facility]/ZIP Co de Phone Number [facility] [place] [address] * (ABNORMAL) CBC with auto differential (05/25/2024 12:20 AM WHIPPED TOPPING MIXER) WBC 9.5 3.8 - 9.9 K/cumm Hgb 12.8 11.9 - 15.5 g/dL [facility] Hct 40.0 35.6 - 45.5 % [facility] Plt 246 150 - 400 K/cumm [facility] MPV 9.8 9.1 - 12.3 fL [facility] RBC 4.42 3.90 - 5.20 M/cumm [facility] MCV 90.5 81.3 - 96.4 fL [facility] MCH 29.0 27.1 - 33.3 pg [facility] MCHC 32.0(L) 32.3 - 35.7 g/dL [facility] RDW CV 13.5 11.1 - 14.9 % [facility] RDW SD 45.3 35.7 - 48.1 fL [facility] NRBC abs 0.00 0.00 - 0.01 K/cumm [facility] Blood 05/25/2024 12:2 0 AM WHIPPED TOPPING MIXER 05/25/2024 12:29 AM WHIPPED TOPPING MIXER Naila Guzman NP LAB BLOOD ORDERABLES Final Result [facility] [place] [address] * Phosphorus (05/25/2024 12:20 AM WHIPPED TOPPING MIXER) Phosphorus, pl 3.1 2.3 - 4.5 mg/dL Blood 05/25/2024 12:2 0 AM WHIPPED TOPPING MIXER 05/25/2024 12:29 AM WHIPPED TOPPING MIXER Naila Guzman NP LAB BLOOD ORDERABLES Final Result Performing Organization Address City/[facility]/ZIP Co de Phone Number [facility] [place] [address] * Magnesium (05/25/2024 12:20 AM WHIPPED TOPPING MIXER) Pathologist [facility] Magnesium 1.9 1.4 - 2.5 mg/dL Blood 05/25/2024 12:2 0 AM WHIPPED TOPPING MIXER 05/25/2024 12:29 AM WHIPPED TOPPING MIXER Naila Guzman NP LAB BLOOD ORDERABLES Final Result Performing Organization Address [facility] de Phone Number [facility] [place] [address] * (ABNORMAL) Comprehensive metabolic panel (05/25/2024 12:20 AM WHIPPED TOPPING MIXER) Pathologist [facility] Sodium 138 135 - 145 mmol/L Potassium, pl 4.4 3.3 - 4.9 mmol/L [facility] Chloride 101 97 - 110 mmol/L [facility] CO2 29 22 - 32 mmol/L [facility] Anion gap 8 2 - 15 mmol/L [facility] BUN 20 6 - 25 mg/dL [facility] Creatinine 0.69 0.60 - 1.10 mg/dL [facility] Glucose 156 70 - 199 mg/dL [facility] Comment: Interpretive Data Fasting glucose >/= 126 [...] 2022. Calcium 9.4 8.5 - 10.3 mg/dL [facility] Bilirubin, total 0.5 0.1 - 1.2 mg/dL [facility] Protein, pl 7.4 6.5 - 8.5 g/dL [facility] Albumin 3.4(L) 3.5 - 5.0 g/dL [facility] Alk phos 67 40 - 130 Units/L [facility] ALT 18 7 - 45 Units/L [facility] AST 16 10 - 45 Units/L [facility] Blood 05/25/2024 12:2 0 AM WHIPPED TOPPING MIXER 05/25/2024 12:29 AM WHIPPED TOPPING MIXER Naila Guzman V[employer] LAB BLOOD ORDERABLES Final Result Performing Organization Address [facility] de Phone Number [facility] [place] [address] * POCT glucose (05/24/2024 8:13 PM WHIPPED TOPPING MIXER) Glucose, POC 171 70 - 199 mg/dL Blood 05/24/2024 8:13 PM WHIPPED TOPPING MIXER 05/24/2024 8:13 PM WHIPPED TOPPING MIXER Result [facility] Carlos Real MD LAB POCT ORDERABLES - DEVICE Fin al Result Performing Organization Address [facility] de Phone Number [facility] [place] [address] * POCT glucose (05/24/2024 5:17 PM WHIPPED TOPPING MIXER) Glucose, POC 133 70 - 199 mg/dL Blood 05/24/2024 5:17 PM WHIPPED TOPPING MIXER 05/24/2024 5:17 PM WHIPPED TOPPING MIXER Carlos Real MD LAB POCT ORDERABLES - DEVICE Fin al Result Performing Organization Address [facility] Co de Phone Number [facility] [place] [address] * POCT glucose (05/24/2024 12:49 PM WHIPPED TOPPING MIXER) Glucose, POC 180 70 - 199 mg/dL Blood 05/24/2024 12:4 9 PM WHIPPED TOPPING MIXER 05/24/2024 12:49 PM WHIPPED TOPPING MIXER Carlos Real MD LAB POCT ORDERABLES - DEVICE Fin al Result Performing Organization Address [facility] [place] [address] * POCT glucose (05/24/2024 9:22 AM WHIPPED TOPPING MIXER) Glucose, POC 139 70 - 199 mg/dL Blood 05/24/2024 9:22 AM WHIPPED TOPPING MIXER 05/24/2024 9:22 AM WHIPPED TOPPING MIXER Carlos Real MD LAB POCT ORDERABLES - DEVICE Fin al Result Performing Organization Address [facility] [place] [address] * Herpes Simplex Virus (HSV) PCR Oral (05/24/2024 8:47 AM WHIPPED TOPPING MIXER) [facility] HSV DNA Not Detected Not Detected [facility] Comment: Interpretive Data This assay is performed [...] reviewed on 08/21/2018 Oral 05/24/2024 8:47 AM WHIPPED TOPPING MIXER 05/24/2024 9:24 AM WHIPPED TOPPING MIXER Narrative [facility] - 05/24/2024 4:28 PM WHIPPED TOPPING MIXER Oral ulcer swab Naila Guzman NP LAB MICROBIOLOGY - GENERAL ORDERABLES Final Result Performing Organization Address [facility] Co de Phone Number [facility] [place] [address] [facility] * POCT glucose (05/24/2024 8:22 AM WHIPPED TOPPING MIXER) Glucose, POC 132 70 - 199 mg/dL Blood 05/24/2024 8:22 AM WHIPPED TOPPING MIXER 05/24/2024 8:22 AM WHIPPED TOPPING MIXER Carlos Real MD LAB POCT ORDERABLES - DEVICE Fin al Result Performing Organization Address [facility] de Phone Number [facility] [place] [address] * eGFR (05/24/2024 12:29 AM WHIPPED TOPPING MIXER) eGFR 87 >=60 mL/min/1. 73 m2 Comment: [...] reviewed 2021. Blood 05/24/2024 12:2 9 AM WHIPPED TOPPING MIXER 05/24/2024 12:54 AM WHIPPED TOPPING MIXER us Naila Romero Thomas V[employer] S[employer] LAB BLOOD ORDERABLES Final Result [facility] [place] [address] * (ABNORMAL) Differential, auto (05/24/2024 12:29 AM WHIPPED TOPPING MIXER) Neutrophil abs 5.3 1.5 - 6.5 K/cumm Imm gran abs 0.0 0.0 - 0.1 K/cumm [facility] Lymphocyte abs 3.0 0.8 - 3.3 K/cumm [facility] Monocyte abs 0.9(H) 0.2 - 0.8 K/cumm [facility] Eosinophil abs 0.3 0.0 - 0.5 K/cumm [facility] Basophil abs 0.0 0.0 - 0.1 K/cumm [facility] Neutrophil pct 55.8 % [facility] Comment: Interpretive Data Percent cell count reference ranges are not reported, since discordance with absolute values may lead to misinterpretation of CBC data. Current Interpretive Data was last revised on 2017. Imm gran pct 0.4 % MARY JANE [facility] Comment: Interpretive Data Percent cell count reference ranges are not reported, since discordance with absolute values may lead to misinterpretation of CBC data. Current Interpretive Data was last revised on 2017. Lymphocyte pct 31.4 % [facility] Comment: Interpretive Data Percent cell count reference ranges are not reported, since discordance with absolute values may lead to misinterpretation of CBC data. Current Interpretive Data was last revised on 2017. Monocyte pct 9.0 % MARY JANE [facility] Comment: Interpretive Data Percent cell count reference ranges are not reported, since discordance with absolute values may lead to misinterpretation of CBC data. Current Interpretive Data was last revised on 2017. Eosinophil pct 3.0 % [facility] Comment: Interpretive Data Percent cell count reference ranges are not reported, since discordance with absolute values may lead to misinterpretation of CBC data. Current Interpretive Data was last revised on 2017. Basophil pct 0.4 % [facility] Comment: Interpretive Data Percent cell count reference ranges are not reported, since discordance with absolute values may lead to misinterpretation of CBC data. Current Interpretive Data was last revised on 2017. Blood 05/24/2024 12:2 9 AM WHIPPED TOPPING MIXER 05/24/2024 12:54 AM WHIPPED TOPPING MIXER Naila Guzman NP LAB BLOOD ORDERABLES Final Result Performing Organization Address City/[facility]/ZIP Co de Phone Number [facility] [place] [address] * CBC with auto differential (05/24/2024 12:29 AM WHIPPED TOPPING MIXER) WBC 9.5 3.8 - 9.9 K/cumm Hgb 12.6 11.9 - 15.5 g/dL [facility] Hct 39.0 35.6 - 45.5 % [facility] Plt 223 150 - 400 K/cumm [facility] MPV 9.6 9.1 - 12.3 fL [facility] RBC 4.23 3.90 - 5.20 M/cumm [facility] MCV 92.2 81.3 - 96.4 fL [facility] MCH 29.8 27.1 - 33.3 pg [facility] MCHC 32.3 32.3 - 35.7 g/dL [facility] RDW CV 13.7 11.1 - 14.9 % [facility] RDW SD 46.5 35.7 - 48.1 fL [facility] NRBC abs 0.00 0.00 - 0.01 K/cumm [facility] Blood 05/24/2024 12:2 9 AM WHIPPED TOPPING MIXER 05/24/2024 12:54 AM WHIPPED TOPPING MIXER us Naila Guzman NP LAB BLOOD ORDERABLES Final Result Performing Organization Address [facility]/ZIP Co de Phone Number [facility] [place] [address] * Phosphorus (05/24/2024 12:29 AM WHIPPED TOPPING MIXER) Pathologist [facility] Phosphorus, pl 3.6 2.3 - 4.5 mg/dL Blood 05/24/2024 12:2 9 AM WHIPPED TOPPING MIXER 05/24/2024 12:54 AM WHIPPED TOPPING MIXER Naila Guzman NP LAB BLOOD ORDERABLES Final Result Performing Organization Address [facility] de Phone Number [facility] [place] [address] * Magnesium (05/24/2024 12:29 AM WHIPPED TOPPING MIXER) [facility] Magnesium 1.9 1.4 - 2.5 mg/dL Blood 05/24/2024 12:2 9 AM WHIPPED TOPPING MIXER 05/24/2024 12:54 AM WHIPPED TOPPING MIXER Naila Guzman NP LAB BLOOD ORDERABLES Final Result Performing Organization Address [facility] de Phone Number [facility] [place] [address] * (ABNORMAL) Comprehensive metabolic panel (05/24/2024 12:29 AM WHIPPED TOPPING MIXER) [facility] Sodium 139 135 - 145 mmol/L Potassium, pl 4.3 3.3 - 4.9 mmol/L [facility] Chloride 103 97 - 110 mmol/L [facility] CO2 29 22 - 32 mmol/L [facility] Anion gap 7 2 - 15 mmol/L [facility] BUN 19 6 - 25 mg/dL [facility] Creatinine 0.75 0.60 - 1.10 mg/dL [facility] Glucose 157 70 - 199 mg/dL [facility] Comment: Interpretive Data Fasting glucose >/= 126 [...] 2022. Calcium 9.2 8.5 - 10.3 mg/dL [facility] Bilirubin, total 0.4 0.1 - 1.2 mg/dL [facility] Protein, pl 7.1 6.5 - 8.5 g/dL [facility] Albumin 3.3(L) 3.5 - 5.0 g/dL [facility] Alk phos 65 40 - 130 Units/L [facility] ALT 18 7 - 45 Units/L [facility] AST 17 10 - 45 Units/L [facility] Blood 05/24/2024 12:2 9 AM WHIPPED TOPPING MIXER 05/24/2024 12:54 AM WHIPPED TOPPING MIXER Naila Guzman NP LAB BLOOD ORDERABLES Final Result Performing Organization Address [facility]/ZIP Co de Phone Number [facility] [place] [address] * POCT glucose (05/23/2024 8:16 PM WHIPPED TOPPING MIXER) Glucose, POC 145 70 - 199 mg/dL Blood 05/23/2024 8:1 6 PM WHIPPED TOPPING MIXER 05/23/2024 8:16 PM WHIPPED TOPPING MIXER Carlos Real MD LAB POCT ORDERABLES - DEVICE Fin al Result Performing Organization Address City/[facility]/ZIP Co de Phone Number [facility] [place] [address] * POCT glucose (05/23/2024 6:14 PM WHIPPED TOPPING MIXER) Glucose, POC 181 70 - 199 mg/dL Blood 05/23/2024 6:14 PM WHIPPED TOPPING MIXER 05/23/2024 6:14 PM WHIPPED TOPPING MIXER Carlos Real MD LAB POCT ORDERABLES - DEVICE Fin al Result Performing Organization Address City/[facility] Co de Phone Number [facility] [place] [address] * POCT glucose (05/23/2024 12:17 PM WHIPPED TOPPING MIXER) Glucose, POC 159 70 - 199 mg/dL Blood 05/23/2024 12:1 7 PM WHIPPED TOPPING MIXER 05/23/2024 12:17 PM WHIPPED TOPPING MIXER us Cem Knapp MD LAB POCT ORDERABLES - DEVIC E Final Result Performing Organization Address [facility] de Phone Number [facility] [place] [address] * US Vein Duplex Lower Extremity Bilateral Complete (05/23/2024 11:45 AM WHIPPED TOPPING MIXER) Pathologist [facility] LV EF % CONS SCIMAGE Anatomical Region Laterality Modality Vascular Bilateral Ultrasound 05/23/2024 11:1 2 AM WHIPPED TOPPING MIXER Narrative 05/23/2024 9:43 PM WHIPPED TOPPING MIXER [facility] - Department of Vascular Surgery, Vascular Laboratory [address] [place] [id number] Lower Extremity Venous Ultrasound Report Patient Name: MOHSEN MARQUES M : 1955 (68y 11m) Study Date: 05/23/2024 11:12:03 AM Gender: F Tech: VELVET Location: [id number] Ref Provider: CARLOS REAL Quality: Adequate Order Provider: CARLOS REAL PROCEDURES: Vascular Report: Venous Duplex imaging was performed bilaterally in the lower extremities. The common femoral, femoral, popliteal, posterior tibial, peroneal veins were evaluated for patency, spontaneity and phasicity with Doppler, compression and augmentation maneuvers. Great saphenous vein proximal at the junction was evaluated with compression maneuvers. INDICATIONS: Localized edema. FINDINGS: Performing Lay Out Technician: Marlys Brown RVT. Bilateral: Venous Doppler signals [...] Vu Obregon MD FACS 05/23/2024 9:42:19 PM WHIPPED TOPPING MIXER Procedure Note Vu Obregon MD - 05/23/2024 [employer] - Department of Vascular Surgery,Vascular Laboratory [address] [place] [id number] Lower Extremity Venous Ultrasound Report Patient Name: MOHSEN MARQUES M : 1955 (68y 11m) Study Date: 05/23/2024 11:12:03 AM Gender: F Tech: HeathBROWN Location: [id number] Ref Provider: CARLOS REAL Quality: Adequate Order Provider: CARLOS REAL PROCEDURES: Vascular Report: Venous Duplex imaging was performed bilaterally in the lower extremities.The common femoral, femoral, popliteal, posterior tibial, peroneal veins wereevaluated for patency, spontaneity and phasicity with Doppler, compression and augmentationmaneuvers. Great saphenous vein proximal at the junction was evaluated with compressionmaneuvers. INDICATIONS: Localized edema. FINDINGS: Performing Lay Out Technician: Marlys Brown RVT. Bilateral: Venous Doppler signals [...] Vu Obregon MD FACS 05/23/2024 9:42:19 PM WHIPPED TOPPING MIXER Carlos Real MD IMG US PROCEDURES Final Result * (ABNORMAL) POCT glucose (05/23/2024 8:16 AM WHIPPED TOPPING MIXER) Glucose, POC 204(H) 70 - 199 mg/dL Blood 05/23/2024 8:16 AM WHIPPED TOPPING MIXER 05/23/2024 8:16 AM WHIPPED TOPPING MIXER Cem Knapp MD LAB POCT ORDERABLES - DEVIC E Final Result Performing Organization Address City/State/[facility] Co de Phone Number [facility] [place] [address] * (ABNORMAL) Differential, auto (05/23/2024 2:30 AM WHIPPED TOPPING MIXER) Neutrophil abs 8.0(H) 1.5 - 6.5 K/cumm Imm gran abs 0.1 0.0 - 0.1 K/cumm [facility] Lymphocyte abs 2.6 0.8 - 3.3 K/cumm [facility] Monocyte abs 1.0(H) 0.2 - 0.8 K/cumm [facility] Eosinophil abs 0.3 0.0 - 0.5 K/cumm [facility] Basophil abs 0.0 0.0 - 0.1 K/cumm [facility] Neutrophil pct 66.5 % [facility] Comment: Interpretive Data Percent cell count reference ranges are not reported, since discordance with absolute values may lead to misinterpretation of CBC data. Current Interpretive Data was last revised on 2017. Imm gran pct 0.5 % [facility] Comment: Interpretive Data Percent cell count reference ranges are not reported, since discordance with absolute values may lead to misinterpretation of CBC data. Current Interpretive Data was last revised on 2017. Lymphocyte pct 21.9 % [facility] Comment: Interpretive Data Percent cell count reference ranges are not reported, since discordance with absolute values may lead to misinterpretation of CBC data. Current Interpretive Data was last revised on 2017. Monocyte pct 8.5 % [facility] Comment: Interpretive Data Percent cell count reference ranges are not reported, since discordance with absolute values may lead to misinterpretation of CBC data. Current Interpretive Data was last revised on 2017. Eosinophil pct 2.3 % [facility] Comment: Interpretive Data Percent cell count reference ranges are not reported, since discordance with absolute values may lead to misinterpretation of CBC data. Current Interpretive Data was last revised on 2017. Basophil pct 0.3 % [facility] Comment: Interpretive Data Percent cell count reference ranges are not reported, since discordance with absolute values may lead to misinterpretation of CBC data. Current Interpretive Data was last revised on 2017. Blood 05/23/2024 2:30 AM WHIPPED TOPPING MIXER 05/23/2024 1:03 AM WHIPPED TOPPING MIXER us Naila Guzman NP LAB BLOOD ORDERABLES Final Result [facility] Department [place] [address] * (ABNORMAL) CBC with auto differential (05/23/2024 2:30 AM WHIPPED TOPPING MIXER) WBC 11.9(H) 3.8 - 9.9 K/cumm Hgb 12.8 11.9 - 15.5 g/dL [facility] Hct 39.6 35.6 - 45.5 % [facility] Plt 254 150 - 400 K/cumm [facility] MPV 9.7 9.1 - 12.3 fL [facility] RBC 4.43 3.90 - 5.20 M/cumm [facility] MCV 89.4 81.3 - 96.4 fL [facility] MCH 28.9 27.1 - 33.3 pg [facility] MCHC 32.3 32.3 - 35.7 g/dL [facility] RDW CV 13.7 11.1 - 14.9 % [facility] RDW SD 44.6 35.7 - 48.1 fL [facility] NRBC abs 0.00 0.00 - 0.01 K/cumm [facility] Blood 05/23/2024 2:30 AM WHIPPED TOPPING MIXER 05/23/2024 1:03 AM WHIPPED TOPPING MIXER us Naila Guzman NP LAB BLOOD ORDERABLES Final Result Performing Organization Address City/[facility]/ZIP Co de Phone Number [facility] [place] [address] * eGFR (05/23/2024 12:42 AM WHIPPED TOPPING MIXER) eGFR 84 >=60 mL/min/1. 73 m2 Comment: [...] reviewed 2021. Blood 05/23/2024 12:4 2 AM WHIPPED TOPPING MIXER 05/23/2024 1:02 AM WHIPPED TOPPING MIXER us Naila Guzman NP LAB BLOOD ORDERABLES Final Result [facility] [place] [address] * Type and screen (05/23/2024 12:42 AM WHIPPED TOPPING MIXER) Pathologist [facility] ABO Rh O Positive Dilcia, indirect Negative [facility] Blood 05/23/2024 12:4 2 AM WHIPPED TOPPING MIXER 05/23/2024 12:52 AM WHIPPED TOPPING MIXER Narrative [facility] - 05/23/2024 1:53 AM WHIPPED TOPPING MIXER Has the patient had Daratumumab or Isatuximab in the past 6 months?->Unknown us Naila Guzman NP LAB BLOOD BANK TEST ORDERA BLES Final Result Performing Organization Address [facility] Co de Phone Number [facility] [place] [address] * Uric acid (05/23/2024 12:42 AM WHIPPED TOPPING MIXER) [facility] Uric acid 5.5 2.5 - 7.0 mg/dL Blood 05/23/2024 12:4 2 AM WHIPPED TOPPING MIXER 05/23/2024 1:02 AM WHIPPED TOPPING MIXER Narrative [facility] - 05/23/2024 1:34 AM WHIPPED TOPPING MIXER Monday and only. Morning draw. . Naila Guzman NP LAB BLOOD ORDERABLES Final Result Performing Organization Address [facility] de Phone Number [facility] [place] [address] * Phosphorus (05/23/2024 12:42 AM WHIPPED TOPPING MIXER) Pathologist [facility] Phosphorus, pl 4.4 2.3 - 4.5 mg/dL Blood 05/23/2024 12:4 2 AM WHIPPED TOPPING MIXER 05/23/2024 1:02 AM WHIPPED TOPPING MIXER Naila Guzman NP LAB BLOOD ORDERABLES Final Result Performing Organization Address [facility] Co de Phone Number [facility] [place] [address] * Magnesium (05/23/2024 12:42 AM WHIPPED TOPPING MIXER) Pathologist [facility] Magnesium 1.9 1.4 - 2.5 mg/dL Blood 05/23/2024 12:4 2 AM WHIPPED TOPPING MIXER 05/23/2024 1:02 AM WHIPPED TOPPING MIXER Naila Guzman NP LAB BLOOD ORDERABLES Final Result Performing Organization Address [facility] Co de Phone Number [facility] [place] [address] * Lactate dehydrogenase (LD) (05/23/2024 12:42 AM WHIPPED TOPPING MIXER) [facility] Lactate dehydrogenase (LDH) 247 100 - 250 Units/L Blood 05/23/2024 12:4 2 AM WHIPPED TOPPING MIXER 05/23/2024 1:02 AM WHIPPED TOPPING MIXER Narrative [facility] - 05/23/2024 1:34 AM WHIPPED TOPPING MIXER Monday and only. Morning draw. Naila Guzman NP LAB BLOOD ORDERABLES Final Result Performing Organization Address [facility] [place] [address] * Comprehensive metabolic panel (05/23/2024 12:42 AM WHIPPED TOPPING MIXER) [facility] Sodium 136 135 - 145 mmol/L Potassium, pl 4.3 3.3 - 4.9 mmol/L [facility] Chloride 101 97 - 110 mmol/L [facility] CO2 29 22 - 32 mmol/L [facility] Anion gap 6 2 - 15 mmol/L [facility] BUN 18 6 - 25 mg/dL [facility] Creatinine 0.77 0.60 - 1.10 mg/dL [facility] Glucose 194 70 - 199 mg/dL [facility] Comment: Interpretive Data Fasting glucose >/= 126 [...] Albumin 3.5 3.5 - 5.0 g/dL [facility] Alk phos 71 40 - 130 Units/L [facility] ALT 19 7 - 45 Units/L [facility] AST 22 10 - 45 Units/L [facility] Blood 05/23/2024 12:4 2 AM WHIPPED TOPPING MIXER 05/23/2024 1:02 AM WHIPPED TOPPING MIXER us Naila Guzman NP LAB BLOOD ORDERABLES Final Result [facility] [place] [address] * (ABNORMAL) POCT glucose (05/22/2024 8:56 PM WHIPPED TOPPING MIXER) Glucose, POC 210(H) 70 - 199 mg/dL Blood 05/22/2024 8:56 PM WHIPPED TOPPING MIXER 05/22/2024 8:56 PM WHIPPED TOPPING MIXER us Cem Knapp MD LAB POCT ORDERABLES - DEVIC E Final Result [facility] [place] [address] * POCT glucose (05/22/2024 6:09 PM WHIPPED TOPPING MIXER) Glucose, POC 142 70 - 199 mg/dL Blood 05/22/2024 6:09 PM WHIPPED TOPPING MIXER 05/22/2024 6:09 PM WHIPPED TOPPING MIXER Leo Henry MD LAB POCT ORDERABLES - NILESH CE Final Result Performing Organization Address City/[facility] Co de Phone Number [facility] [place] [address] * POCT glucose (05/22/2024 4:26 PM WHIPPED TOPPING MIXER) Glucose, POC 133 70 - 199 mg/dL Blood 05/22/2024 4:26 PM WHIPPED TOPPING MIXER 05/22/2024 4:26 PM WHIPPED TOPPING MIXER Leo Henry MD LAB POCT ORDERABLES - NILESH CE Final Result Performing Organization Address [facility] de Phone Number [facility] [place] [address] * CT Abdomen Pelvis W Contrast (05/22/2024 2:32 PM WHIPPED TOPPING MIXER) Anatomical Region Laterality Modality Body N/A Computed Tomogra phy 05/22/2024 4:35 PM WHIPPED TOPPING MIXER Impressions 05/22/2024 5:16 PM WHIPPED TOPPING MIXER No acute findings within the abdomen or pelvis. Dictated by: Yesi Mendes M.D. The radiology attending physician has personally reviewed this study, and had reviewed and/or edited this written report and agrees with it. Electronically signed by: Kelli Palmer M.D. Narrative 05/22/2024 5:16 PM WHIPPED TOPPING MIXER EXAMINATION: Computed tomography of the abdomen and [...] sult * POCT glucose (05/22/2024 12:58 PM WHIPPED TOPPING MIXER) Glucose, POC 177 70 - 199 mg/dL Blood 05/22/2024 12:5 8 PM WHIPPED TOPPING MIXER 05/22/2024 12:58 PM WHIPPED TOPPING MIXER Leo Henry MD LAB POCT ORDERABLES - NILESH CE Final Result Performing Organization Address City/[facility]/ZIP Co de Phone Number [facility] [place] [address] * (ABNORMAL) POCT glucose (05/22/2024 9:29 AM WHIPPED TOPPING MIXER) Glucose, POC 291(H) 70 - 199 mg/dL Blood 05/22/2024 9:29 AM WHIPPED TOPPING MIXER 05/22/2024 9:29 AM WHIPPED TOPPING MIXER Leo Henry MD LAB POCT ORDERABLES - NILESH CE Final Result Performing Organization Address City/[facility]/ZIP Co de Phone Number [facility] [place] [address] * POCT glucose (05/22/2024 6:54 AM WHIPPED TOPPING MIXER) Glucose, POC 142 70 - 199 mg/dL Blood 05/22/2024 6:54 AM WHIPPED TOPPING MIXER 05/22/2024 6:54 AM WHIPPED TOPPING MIXER us Jimmie Zavala MD LAB POCT ORDERABLES - DEVICE Fin al Result [facility] [place] [address] * CT Chest PE (CTA) W Contrast (05/22/2024 1:31 AM WHIPPED TOPPING MIXER) Anatomical Region Laterality Modality Body N/A Computed Tomogra phy 05/22/2024 2:38 AM WHIPPED TOPPING MIXER Impressions 05/22/2024 9:12 AM WHIPPED TOPPING MIXER No pulmonary embolism. Dictated by: Miguel Milligan MD The radiology attending physician has personally reviewed this study, and had reviewed and/or edited this written report and agrees with it. Electronically signed by: Jayson Rockwell M.D. Narrative 05/22/2024 9:12 AM WHIPPED TOPPING MIXER EXAMINATION: CT CHEST PE (CTA) W CONTRAST [...] Result * D-dimer, quantitative (05/22/2024 12:24 AM WHIPPED TOPPING MIXER) D-Dimer 414 <=499 ng/mL FEU Comment: Interpretive [...] on 2019. Blood 05/22/2024 12:2 4 AM WHIPPED TOPPING MIXER 05/22/2024 12:42 AM WHIPPED TOPPING MIXER Angeline Soler MD LAB BLOOD ORDERABLES F inal Result Performing Organization Address [facility] Co de Phone Number [facility] [place] [address] * Troponin I high-sensitivity 2-hour (05/21/2024 11:09 PM WHIPPED TOPPING MIXER) Trop I hs 5 <=17 ng/L Comment: Interpretive Data For further hscTnI resources including the diagnostic algorithm and an aid in interpretation, copy and paste this link: https://bjhlab.testcatalog.org/show/[email or web address] Current Interpretive Data last revised 2019. Trop I hs delta See Comment ng/L [facility] Comment:Inappropriate collec tion time to report a delta. Trop I hs pct delta See Comment % [facility] Comment:Inappropriate collec tion time to report a delta. Trop I hs interp See Comment [facility] Comment:Inappropriate collec tion time to report a delta. Blood 05/21/2024 11:0 9 PM WHIPPED TOPPING MIXER 05/21/2024 11:26 PM WHIPPED TOPPING MIXER Cira Castro MD LAB BLOOD ORDERABL ES Final Result Performing Organization Address [facility] Co de Phone Number [facility] [place] [address] * (ABNORMAL) Urinalysis reflex to microscopic and culture Urine (05/21/2024 11:09 PM WHIPPED TOPPING MIXER) Color, ur Yellow Yellow Clarity, ur Clear Clear [facility] Specific gravity, ur 1.025 1.003 - 1.030 [facility] pH, urine 6.0 [facility] Comment: Interpretive Data U rine pH is affected by diet, medications, systemic acid-base disturbances, and renal tubular function. pH may affect urinary stone formation. For example, urine pH below 6.0 may help reduce the tendency for calcium phosphate stones and pH greater than 6.0 may reduce the tendency for uric acid stone formation. Source: [facility] Current Interpretive Data was last revised on 2017 Protein, ur ql 1+(A) Negative [facility] Glucose, ur ql Negative Negative [facility] Ketones, ur Negative Negative [facility] Bilirubin, ur Negative Negative [facility] Blood, ur Trace(A) Negative [facility] Urobilinogen, ur <2.0 <2.0 mg/dL [facility] Nitrite, ur Positive(A) Negative [facility] Leukocyte esterase, ur 1+(A) Negative [facility] UA reflex comment Reflex to microscopic UA will be performed. [facility] Urine 05/21/2024 11:0 9 PM WHIPPED TOPPING MIXER 05/21/2024 11:22 PM WHIPPED TOPPING MIXER Angeline Soler MD LAB MICROBIOLOGY - GEN ERAL ORDERABLES Final Result [facility] [place] [address] * Respiratory pathogen panel Nasopharyngeal (05/21/2024 11:09 PM WHIPPED TOPPING MIXER) Pathologist [facility] Influenza A RNA Not Detected Not Detected Influenza B RNA Not Detected Not Detected [facility] RSV RNA Not Detected Not Detected [facility] COVID-19 RNA Not Detected Not Detected [facility] Coronavirus 229E RNA Not Detected Not Detected [facility] Coronavirus HKU1 RNA Not Detected Not Detected [facility] Coronavirus NL63 RNA Not Detected Not Detected [facility] Coronavirus OC43 RNA Not Detected Not Detected [facility] Adenovirus DNA Not Detected Not Detected [facility] Metapneumovirus RNA Not Detected Not Detected [facility] Rhinovirus/Enterov irus RNA Not Detected Not Detected [facility] Parainfluenza 1 RNA Not Detected Not Detected [facility] Parainfluenza 2 RNA Not Detected Not Detected [facility] Parainfluenza 3 RNA Not Detected Not Detected [facility] Parainfluenza 4 RNA Not Detected Not Detected [facility] B. pertussis DNA Not Detected Not Detected [facility] B. parapertussis DNA Not Detected Not Detected [facility] C. pneumoniae DNA Not Detected Not Detected [facility] M. pneumoniae DNA Not Detected Not Detected [facility] Nasopharyngeal 05/21/2024 11 :09 PM WHIPPED TOPPING MIXER 05/22/2024 4:48 AM WHIPPED TOPPING MIXER Narrative [facility] - 05/22/2024 5:55 AM WHIPPED TOPPING MIXER Is the Patient experiencing symptoms consistent with COVID?->No Surveillance testing for transplant patient?->No Interpretive Data The Naverus FilmArray Respiratory Panel (RP2.1) assay is a [...] assay has FDA clearance for testing of VESSEL SCRAPPER swabs. The performance of additional specimen types has been assessed by the performing laboratory. The performance characteristics of this assay have been determined by [facility] Molecular Infectious Disease [facility]. Current interpretive data was last revised on 22. Angeline Soler MD LAB MICROBIOLOGY - GEN ERAL ORDERABLES Final Result [facility] [place] [address] * (ABNORMAL) Urinalysis, microscopic only (05/21/2024 11:09 PM WHIPPED TOPPING MIXER) WBC, ur 11-20(A) 0 - 5 /HPF RBC, ur 3-5(A) 0 - 2 /HPF [facility] Epithelial cells, squamous, ur 1-5 0 - 5 /HPF [facility] Bacteria, ur 3+(A) [facility] Yeast, ur Trace(A) [facility] Mucous, ur Present(A) [facility] Culture Reflex Comment Reflex to urine culture will be performed. [facility] Urine 05/21/2024 11:0 9 PM WHIPPED TOPPING MIXER 05/21/2024 11:21 PM WHIPPED TOPPING MIXER Angeline Soler MD LAB URINE ORDERABLES F inal Result [facility] [place] [address] * (ABNORMAL) Urine culture Urine (05/21/2024 11:09 PM WHIPPED TOPPING MIXER) Report Amended Report - Complete: Greater than or equal to 100,000 colonies/mL of Escherichia coli Plus growth of clinically insignificant bacterial yesenia. (.) Organism ESCHERICHIA COLI [facility] Organism PLUS GROWTH OF CLINICALLY INSIGNIFICANT YESENIA. [facility] Urine 05/21/2024 11:0 9 PM WHIPPED TOPPING MIXER 05/22/2024 2:40 AM WHIPPED TOPPING MIXER Narrative [facility] - 05/25/2024 10:36 AM WHIPPED TOPPING MIXER Urine culture reflexed based upon urinalysis results. Testing performed by [facility] ([phone]) Organism Antibiotic Method Susceptibility Escherichia coli Ampicillin [...] Result - Final [facility] [place] [address] * POCT glucose (05/21/2024 8:55 PM WHIPPED TOPPING MIXER) Glucose, POC 139 70 - 199 mg/dL Blood 05/21/2024 8:55 PM WHIPPED TOPPING MIXER 05/21/2024 8:55 PM WHIPPED TOPPING MIXER Notinfile Unknown LAB POCT ORDERABLES - DEVICE F inal Result Performing Organization Address [facility] de Phone Number [facility] [place] [address] * Troponin I high-sensitivity 4-hour (05/21/2024 7:26 PM WHIPPED TOPPING MIXER) Trop I hs 4 <=17 ng/L Comment: Interpretive Data For further hscTnI resources including the diagnostic algorithm and an aid in interpretation, copy and paste this link: https://TechDevils.turboBOTZ.org/show/hsTrop-1 Current Interpretive Data last revised 2019. Trop I hs delta -1 ng/L [facility] Trop I hs interp Insignificant [facility] Blood 05/21/2024 7:26 PM WHIPPED TOPPING MIXER 05/21/2024 7:37 PM WHIPPED TOPPING MIXER Cira Castro MD LAB BLOOD ORDERABL ES Final Result Performing Organization Address [facility] de Phone Number [facility] [place] [address] * Troponin I high-sensitivity series (baseline, 2hr, 4hr, 6hr) (05/21/2024 4:20 PM WHIPPED TOPPING MIXER) Trop I hs 5 <=17 ng/L Comment: Interpretive Data For further hscTnI resources including the diagnostic algorithm and an aid in interpretation, copy and paste this link: https://TechDevils.turboBOTZ.org/show/hsTrop-1 Current Interpretive Data last revised 2019. Blood 05/21/2024 4:20 PM WHIPPED TOPPING MIXER 05/21/2024 4:50 PM WHIPPED TOPPING MIXER us Jimmie Zavala MD LAB BLOOD ORDERABLES Final Resul t Performing Organization Address City/[facility]/ZIP Co de Phone Number [facility] [place] [address] * eGFR (05/21/2024 4:20 PM WHIPPED TOPPING MIXER) eGFR >90 >=60 mL/min/1. 73 m2 Comment: [...] last reviewed 2021. Blood 05/21/2024 4:20 PM WHIPPED TOPPING MIXER 05/21/2024 4:50 PM WHIPPED TOPPING MIXER us Jimmie Zavala MD LAB BLOOD ORDERABLES Final Resul t Performing Organization Address City/[facility]/ZIP Co de Phone Number [facility] [place] [address] * (ABNORMAL) Differential, auto (05/21/2024 4:20 PM WHIPPED TOPPING MIXER) Neutrophil abs 8.0(H) 1.5 - 6.5 K/cumm Imm gran abs 0.0 0.0 - 0.1 K/cumm [facility] Lymphocyte abs 2.4 0.8 - 3.3 K/cumm [facility] Monocyte abs 0.8 0.2 - 0.8 K/cumm [facility] Eosinophil abs 0.2 0.0 - 0.5 K/cumm [facility] Basophil abs 0.0 0.0 - 0.1 K/cumm [facility] Neutrophil pct 69.4 % [facility] Comment: Interpretive Data Percent cell count reference ranges are not reported, since discordance with absolute values may lead to misinterpretation of CBC data. Current Interpretive Data was last revised on 2017. Imm gran pct 0.4 % [facility] Comment: Interpretive Data Percent cell count reference ranges are not reported, since discordance with absolute values may lead to misinterpretation of CBC data. Current Interpretive Data was last revised on 2017. Lymphocyte pct 21.4 % [facility] Comment: Interpretive Data Percent cell count reference ranges are not reported, since discordance with absolute values may lead to misinterpretation of CBC data. Current Interpretive Data was last revised on 2017. Monocyte pct 6.7 % [facility] Comment: Interpretive Data Percent cell count reference ranges are not reported, since discordance with absolute values may lead to misinterpretation of CBC data. Current Interpretive Data was last revised on 2017. Eosinophil pct 1.8 % [facility] Comment: Interpretive Data Percent cell count reference ranges are not reported, since discordance with absolute values may lead to misinterpretation of CBC data. Current Interpretive Data was last revised on 2017. Basophil pct 0.3 % [facility] Comment: Interpretive Data Percent cell count reference ranges are not reported, since discordance with absolute values may lead to misinterpretation of CBC data. Current Interpretive Data was last revised on 2017. Blood 05/21/2024 4:20 PM WHIPPED TOPPING MIXER 05/21/2024 4:50 PM WHIPPED TOPPING MIXER us Jimmie Zavala MD LAB BLOOD ORDERABLES Final Resul t [facility] [place] [address] * (ABNORMAL) CBC with auto differential (05/21/2024 4:20 PM WHIPPED TOPPING MIXER) WBC 11.4(H) 3.8 - 9.9 K/cumm Hgb 14.0 11.9 - 15.5 g/dL [facility] Hct 43.6 35.6 - 45.5 % [facility] Plt 286 150 - 400 K/cumm [facility] MPV 9.9 9.1 - 12.3 fL [facility] RBC 4.83 3.90 - 5.20 M/cumm [facility] MCV 90.3 81.3 - 96.4 fL [facility] MCH 29.0 27.1 - 33.3 pg [facility] MCHC 32.1(L) 32.3 - 35.7 g/dL [facility] RDW CV 13.6 11.1 - 14.9 % [facility] RDW SD 45.6 35.7 - 48.1 fL [facility] NRBC abs 0.00 0.00 - 0.01 K/cumm [facility] Blood Venous blood specimen / Unknown 05/21/2024 4:20 PM WHIPPED TOPPING MIXER 05/21/2024 4:50 PM WHIPPED TOPPING MIXER us Jimmie Zavala MD LAB BLOOD ORDERABLES Final Resul t [facility] [place] [address] * (ABNORMAL) Hemoglobin A1c (05/21/2024 4:20 PM WHIPPED TOPPING MIXER) Hgb A1C 8.7(H) 4.0 - 5.6 % Estimated Average Glucose 203 mg/dL [facility] Comment: The ADA recommends reporting an estimated Average Glucose (eAG) with all Hemoglobin A1c results using the equation derived from a study of 507 normal and diabetic adults. Minority populations were underrepresented and children were not included. (Diabetes Care 2020; 43(S1): S66-S76). The eAG is not equivalent to a fasting glucose. Blood 05/21/2024 4:20 PM WHIPPED TOPPING MIXER 05/21/2024 4:55 PM WHIPPED TOPPING MIXER us Leo Henry MD LAB BLOOD ORDERABLES Final Result [facility] [place] [address] * (ABNORMAL) Lipid panel (05/21/2024 4:20 PM WHIPPED TOPPING MIXER) Cholesterol 205(H) 30 - 199 mg/dL Comment: [...] 2017. Triglycerides 92 <=149 mg/dL [facility] Comment: Interpretive Data Ages < or [...] 2017. HDL 55 >=40 mg/dL [facility] Comment: Interpretive Data Ages < or [...] on 2017. LDL, calculated 134(H) <=129 mg/dL [facility] Comment: Interpretive Data Ages < or = [...] revised on 2023. Non-HDL Cholesterol 150 mg/dL [facility] Comment: Interpretive Data Ages < or = [...] last revised on 2017. Chol/HDL ratio 4 [facility] Blood 05/21/2024 4:20 PM WHIPPED TOPPING MIXER 05/21/2024 4:50 PM WHIPPED TOPPING MIXER Narrative [facility] - 05/22/2024 4:17 PM WHIPPED TOPPING MIXER Reflex us Leo Henry MD LAB BLOOD ORDERABLES Final Result [facility] [place] [address] * Comprehensive metabolic panel (05/21/2024 4:20 PM WHIPPED TOPPING MIXER) Sodium 140 135 - 145 mmol/L Potassium, pl 4.3 3.3 - 4.9 mmol/L [facility] Chloride 100 97 - 110 mmol/L [facility] CO2 29 22 - 32 mmol/L [facility] Anion gap 11 2 - 15 mmol/L [facility] BUN 14 6 - 25 mg/dL [facility] Creatinine 0.63 0.60 - 1.10 mg/dL [facility] Glucose 119 70 - 199 mg/dL [facility] Comment: Interpretive Data Fasting glucose >/= 126 [...] 2022. Calcium 10.0 8.5 - 10.3 mg/dL [facility] Bilirubin, total 0.7 0.1 - 1.2 mg/dL [facility] Protein, pl 8.5 6.5 - 8.5 g/dL [facility] Albumin 3.9 3.5 - 5.0 g/dL [facility] Alk phos 83 40 - 130 Units/L [facility] ALT 23 7 - 45 Units/L [facility] AST 22 10 - 45 Units/L [facility] Blood 05/21/2024 4:20 PM WHIPPED TOPPING MIXER 05/21/2024 4:50 PM WHIPPED TOPPING MIXER us Jimmie Zavala MD LAB BLOOD ORDERABLES Final Resul t [facility] [place] [address] * XR Chest Pa Lateral 2 Views (05/21/2024 2:23 PM WHIPPED TOPPING MIXER) Anatomical Region Laterality Modality Body, Chest N/A Computed Radiogr aphy 05/21/2024 2:28 PM WHIPPED TOPPING MIXER Impressions 05/21/2024 2:36 PM WHIPPED TOPPING MIXER The current study is compared with the [...] Jaime Neves M.D. Narrative 05/21/2024 2:36 PM WHIPPED TOPPING MIXER EXAMINATION: 2 view chest radiograph Procedure Note [...] Result * POCT glucose (05/21/2024 1:39 PM WHIPPED TOPPING MIXER) Glucose, POC 113 70 - 199 mg/dL Blood 05/21/2024 1:39 PM WHIPPED TOPPING MIXER 05/21/2024 1:39 PM WHIPPED TOPPING MIXER us Notinfile Unknown LAB POCT ORDERABLES - DEVICE F inal Result [facility] [place] [address] * ECG 12-LEAD (05/21/2024 1:36 PM WHIPPED TOPPING MIXER) Narrative [facility] - 05/21/2024 1:36 PM WHIPPED TOPPING MIXER Gil Mcgrath MD 05/21/2024 1:37 PM ECG [...] in the ED Gil Mcgrath MD 05/21/24 1400 Jimmie Zavala MD ECG ORDERABLES Final Result [facility] * Axillary Breast Left (05/21/2024 12:13 PM WHIPPED TOPPING MIXER) Anatomical Region Laterality Modality Upper Extremities Left Ultrasound 05/21/2024 12:2 3 PM WHIPPED TOPPING MIXER Impressions 05/21/2024 12:23 PM WHIPPED TOPPING MIXER 1. Limited ultrasound due to extensive edema [...] Alicia Wilcox M.D. Narrative 05/21/2024 12:23 PM WHIPPED TOPPING MIXER EXAMINATION: LEFT AXILLARY ULTRASOUND HISTORY: Patient is [...] culture Urine, clean voided (05/14/2024 4:50 PM WHIPPED TOPPING MIXER) Color, ur Straw Yellow Clarity, ur Clear Clear [facility] Specific gravity, ur 1.025 1.003 - 1.030 [facility] pH, urine 5.5 [facility] Comment: Interpretive Data U rine pH is affected by diet, medications, systemic acid-base disturbances, and renal tubular function. pH may affect urinary stone formation. For example, urine pH below 6.0 may help reduce the tendency for calcium phosphate stones and pH greater than 6.0 may reduce the tendency for uric acid stone formation. Source: [employer] Current Interpretive Data was last revised on 2017 Protein, ur ql Trace Negative [facility] Glucose, ur ql Negative Negative [facility] Ketones, ur Negative Negative [facility] Bilirubin, ur Negative Negative [facility] Blood, ur Trace(A) Negative [facility] Urobilinogen, ur <2.0 <2.0 mg/dL [facility] Nitrite, ur Negative Negative [facility] Leukocyte esterase, ur Negative Negative [facility] UA reflex comment Reflex to microscopic UA will be performed. [facility] Urine, clean voided 05/14/2024 4:50 PM WHIPPED TOPPING MIXER 05/14/2024 7:18 PM WHIPPED TOPPING MIXER us Foluso Rayna Ademuyiwa MD LAB MICROBIOLOGY - G ENERAL ORDERABLES Final Result Performing Organization Address [facility] Co de Phone Number MARY JANE [facility] [place] [address] * (ABNORMAL) Urinalysis, microscopic only (05/14/2024 4:50 PM WHIPPED TOPPING MIXER) WBC, ur 0-5 0 - 5 /HPF RBC, ur 0-2 0 - 2 /HPF [facility] Epithelial cells, squamous, ur 1-5 0 - 5 /HPF [facility] Bacteria, ur Trace(A) [facility] Mucous, ur Present(A) [facility] Culture Reflex Comment Reflex conditions for urine culture (WBC >10) not met. [facility] Urine, clean voided 05/14/2024 4:50 PM WHIPPED TOPPING MIXER 05/14/2024 7:18 PM WHIPPED TOPPING MIXER Khris Arthur MD LAB URINE ORDERABLES Final Result Performing Organization Address [facility] Co de Phone Number [facility] [place] [address] * XR Ribs Left 2 Views (05/14/2024 4:44 PM WHIPPED TOPPING MIXER) Anatomical Region Laterality Modality Rib, Chest Left Digital Radiogra phy 05/14/2024 4:54 PM WHIPPED TOPPING MIXER Impressions 05/14/2024 4:54 PM WHIPPED TOPPING MIXER 1. No displaced left rib fracture. Electronically signed by: Santiago Gan D.O. Narrative 05/14/2024 4:54 PM WHIPPED TOPPING MIXER EXAMINATION: XR RIBS LEFT 2 VIEWS HISTORY: [...] Bone mineral density was performed on a [employer] Discovery Densitometer. Based on machine cross-calibration and [...] by the International Society of Clinical Densitometry. [id number] Khris Arthur MD IMG DXA PROCEDURES F [...] agrees with it. ACC# Date Time Exam [id number] Aug 19, 2016 14:27:00 [facility] [id number] Diag Mamm, inc CAD, unilat L Technologist(s): Carla Harris; ; [id number] Aug 19, 2016 15:39:00 [facility] [id number] Breast US unilateral, ltd L ACC# Date Time Exam [id number] Aug 19, 2016 14:27:00 C 12407 Diag Mamm, inc CAD, unilat L Technologist(s): Carla Harris; ; [id number] Aug 19, 2016 15:39:00 C 91489 Breast US unilateral, ltd L EXAMINATION: LEFT [...] SARABIA M.D. on Aug 19 2016 4:20P [id number] Procedure Note Miscellaneous, Not In File / Provider, MD Tyler - 09/17/2016 ANTHONY SARABIA M.D. JUDY RINCON M.D. FINAL REPORT The radiology attending physician has personally reviewed this study, and has reviewed and/or edited this written report and agrees with it. ACC# Date Time Exam [id number] Aug 19, 2016 14:27:00 [facility] 94168 Diag Mamm, inc CAD, unilat L Technologist(s): Carla Harris; ; [id number] Aug 19, 2016 15:39:00 C 95121 Breast US unilateral, ltd L ACC# Date Time Exam [id number] Aug 19, 2016 14:27:00 C 99260 Diag Mamm, inc CAD, unilat L Technologist(s): Carla Harris; ; [id number] Aug 19, 2016 15:39:00 C 17516 Breast US unilateral, ltd L EXAMINATION: LEFT [...] SARABIA M.D. on Aug 19 2016 4:20P [id number] us Not In File Miscellaneous IMG MAMMO PROCEDURES F inal Result from Last 3 Months or Most Recently Relevant to Health Maintenance Insurance [facility] MEDICARE SOLUTIONS MEDICARE SOLUTIONS MEDICARE SOLUTIONS Advance Directives For more information, please contact: [phone] Documents on File Type Date Recorded Patient Binding Cutter Expl anation ADVANCE DIRECTIVE 12/23/2021 2:49 PM Power of [facility] ADVANCE DIRECTIVE 12/23/2021 2:49 PM Living Will [...] Agents on File Name Relationship Healthcare Agent [facility] Communication Yunior Marques Daughter Health Care Agent Jimmie Marques Spouse First Alternate Health Care Agent Care Teams Stumper Feller Relationship Specialty Start Date End Date Justen Gale MD [address] [facility] [address] [place] [address] PCP - General 10/09/17 Liu Jerez MD Consulting Physician Gastroenterology 07/28/17 [place] [address] [facility] [address] [place] [address] Consulting Physician Pulmonary Disease 08/03/17 Khris Arthur MD [address] [facility] [address] [place] [address] Medical Oncologist/Angular Js Developer Medical Oncology 10/23/17 [place] [address] [facility] [address] [place] [address] Surgeon Orthopedic Surgery 10/23/17 [place] [address] [facility] [address] [place] [address] Consulting Physician Pain Management 10/23/17 [place] [address] [facility] [address] [place] [address] Referring Physician General Surgery 01/26/18 [place] [address] [facility] [address] [place] [address] Consulting Physician Neurology 01/26/18
--- OUTSIDE RECORDS SUMMARY | 2024-07-11 03:31 | XMS_ITS ---
Author Organization [facility] Address [address] [place] [id number] Care Team Providers Care Construction Materials Tester Name Role Phone Liu Jerez MD Unavailable Albert Corbin MD Unavailable Justen Gale MD Primary Care Provider Khris Arthur MD Unavailable [phone] Ko Melendez MD Unavailable John Paul Moyer MD Unavailable [phone] Annel Rod MD Unavailable Anali MARSHALL MD, Carlos M. 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 10/17/2019 Thyroid [...] complication, without long-term current use of insulin ([facility]) 10/23/2017 Assessment & Plan (10/23/2017 2:06 AM [...] 10/13/2017 Assessment & Plan (05/22/2024 12:29 PM PHARMACEUTICAL SCIENTIST): -Hx stage II, ER positive, HER2 negative [...] 08/01/2017 Assessment & Plan (05/22/2024 12:33 PM PHARMACEUTICAL SCIENTIST): -Hx LUL -Hospital provided CPAP ordered History of DVT (deep vein thrombosis) 08/01/2017 History of pulmonary embolism 08/01/2017 Generalized weakness 07/27/2017 Dyspnea 07/27/2017 Unintentional weight loss 07/27/2017 Acute cystitis without hematuria 07/27/2017 Nausea and vomiting 07/26/2017 Overview (07/28/2017): Added automatically from request for surgery [id number] Pulmonary embolism 08/09/2016 Assessment & Plan (10/23/2017 2:05 AM CDT): On Rivaroxaban Lymphedema of left upper extremity 08/09/2016 Assessment & Plan (05/25/2024 7:53 AM PHARMACEUTICAL SCIENTIST): S/p L axillary lymph node dissection 2014, [...] syndrome Assessment & Plan (05/22/2024 11:18 AM PHARMACEUTICAL SCIENTIST): -continue home Requip 5mg nightly Pain of lower extremity 03/12/2013 Overview (07/29/2016): Leg pain Essential hypertension Assessment & Plan (05/23/2024 10:42 AM PHARMACEUTICAL SCIENTIST): -Chart history of HTN but not on meds -BP elevated on admission, likely some pain contributing -Monitor closely once pain under adequate control, discussed following up with PCP for this Chronic anticoagulation Restless leg syndrome 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 Type 2 diabetes mellitus without complication Assessment & Plan (05/24/2024 1:39 PM PHARMACEUTICAL SCIENTIST): -Last Ha1c 8.4 in 2023, repeat 8.7 [...] left female breast, unspecified estrogen receptor status (HCC)snf (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
--- OUTSIDE RECORDS SUMMARY | 2024-07-11 03:32 | XMS_ITS | Encounter Summary ---
Author Organization [facility] Address [address] [place] [address] Phone Care Team Providers Care Assembler Camper Name Role Phone Justen Gale MD Primary Care Provider [phone] David Roberts APRN, POTTER OR CERAMIC ARTIST Unavailable [phone] Annel Rod MD Unavailable Reason for Visit * Reason Comments Medication Refill Encounter Details Date Type Department Care Team (Late st Contact Info) Description 03/13/2021 Refill [facility] [address] [place] [address] Justen Gale MD [address] [address] Medication Refill Social History Tobacco Use Types [...] COVID-19? No / Unsure 03/02/2021 5:05 PM QUALITY CONTROL LAB TECHNICIAN documented as of this encounter Plan of Treatment Not on file documented as of this encounter Visit Diagnoses Not on filedocumented in this encounter Additional Health Concerns Assessment Noted Time PHQ-9 Depression Total Score: 0 07/21/19 21 3:00 PM CDT documented as of this encounter Care Teams Assembler Camper Relationship Specialty Start Date End Date Justen Gale MD [address]2 [facility] [address] [place] [address] PCP - General Family Medicine 10/17/17 David Roberts APRN, NETTA [address] [place] [address] Nurse Practitioner Advanced Practice Nurse 01/31/22 Annel Rod MD #2 [facility] [address] [place] [address] Consulting Physician Endocrinology 07/01/22 documented as of this encounter
--- OUTSIDE RECORDS SUMMARY | 2024-07-11 03:32 | XMS_ITS | Clinical Summary ---
Author Organization [facility] Address [address] [place] [address] Phone Care Team Providers Care Chemical Production Engineer Name Role Phone Justen Gale MD Primary Care Provider [phone] David Roberts APRN, DISTRICT COURT JUDGE Unavailable [phone] Annel Rod MD Unavailable Allergies Active Allergy [...] Overview: Added automatically from request for surgery [id number] Lymphedema of left upper extremity 08/09/2016 Pulmonary embolism 08/09/2016 Overview (11/09/2017): Last Assessment & Plan: On Rivaroxaban Arthralgia of ankle 01/26/2015 Cellulitis of breast 11/11/2014 Encounters Date Type Department Care Team Description 07/11/2024 Nurse Triage [address] [address] Justen Gale MD Toe Problem 06/14/2024 Nurse Triage [facility] [address] [place] [phone] Justen Gale MD Urinary Incontinence; Urinary Problem 05/28/2024 Nurse Triage [facility] [address] [place] [address] Justen Gale MD Nausea; Fatigue 05/14/2024 Nurse Triage [facility] [address] [place] [address] Justen Gale MD Arm Swelling; Arm Pain 05/13/2024 Results Follow-Up [facility] [address] [place] [phone] Justen Gale MD 04/23/2024 MyChart RX Renewal [facility] #2 [place] [phone] Annel Rod MD Medication Renewal Declined 04/23/2024 MyChart RX Renewal [facility] [address] [place] [phone] Justen Gale MD Medication Renewal Request from Last 3 Months Immunizations Immunization Administration Dates Next Due Covid-19 Vaccine, Vector-nr, Rs-ad26, Pf, 0.5 Ml ([email or web address]) 06/29/2020 Influenza Vaccine greater than 3 yrs [...] Comments CT - ABDOMEN/PELVIS 06/21/2024 12:00 AM DRILLING MANAGER XR - LOWER EXTREMITY 06/20/2024 12:00 AM DRILLING MANAGER PAIN CONSULT 05/20/2024 12:00 AM DRILLING MANAGER XR - CHEST 05/15/2024 12:00 AM DRILLING MANAGER URINALYSIS (UA) RANDOM 12:00 AM DRILLING MANAGER XR - CHEST 05/14/2024 12:00 AM DRILLING MANAGER EXTERNAL GASTROENTEROLOGY REFERRAL Less Than 1 week 05/07/2024 12:00 AM DRILLING MANAGER Nausea and vomiting, unspecified vomiting type Pain of upper abdomen CT - ABDOMEN/PELVIS 04/19/2024 12:00 AM DRILLING MANAGER CMP (COMPREHENSIVE METABOLIC PANEL) 12/04/2023 12:00 AM CDT HEMOGLOBIN, A1C 10/02/2023 12:00 AM CDT HUMAN PAPILLOMA VIRUS (HPV) Routine 07/05/2022 2:24 PM CDT Encounter for gynecological examination with abnormal finding Encounter for screening for human papillomavirus (HPV) PATHOLOGY CYTOLOGY IMAGING NURSE Routine 2:24 PM CDT Encounter for gynecological examination with abnormal finding HM COLONOSCOPY Routine 01/09/2020 AMB REFERRAL TO PODIATRY Routine 08/13/2019 POCT STOOL, OCCULT BLOOD, DIAGNOSTIC Routine 09/07/2018 1:20 PM CDT Generalized abdominal pain from Last 3 Months or Most Recently Relevant to Health Maintenance Results * CT - ABDOMEN/PELVIS (06/21/2024 12:00 AM DRILLING MANAGER) Only the most recent of2 resultswithin the time period is included. 06/21/2024 us Provider Scan IMG CT ORDERABLES Final Result Performing Organization Address [facility] de Phone Number SCAN * XR - LOWER EXTREMITY (06/20/2024 12:00 AM DRILLING MANAGER) 06/20/2024 us Provider Scan IMG DIAGNOSTIC ORDERABLES Final Result Performing Organization Address [facility] Co de Phone Number SCAN * PAIN CONSULT (05/20/2024 12:00 AM DRILLING MANAGER) 05/20/2024 us Justen Gale MD GENERIC SCAN ORDERS CONSULT F inal Result Performing Organization Address [facility] Co de Phone Number SCAN * XR - CHEST (05/15/2024 12:00 AM DRILLING MANAGER) Only the most recent of2 resultswithin the time period is included. 05/15/2024 us Provider Scan IMG DIAGNOSTIC ORDERABLES Final Result Performing Organization Address [facility] de Phone Number SCAN * URINALYSIS (UA) RANDOM (05/14/2024 12:00 AM DRILLING MANAGER) 05/14/2024 us Provider Scan URINE ORDERABLES Final Result Performing Organization Address [facility] de Phone Number SCAN * EXTERNAL GASTROENTEROLOGY REFERRAL (05/07/2024 12:00 AM DRILLING MANAGER) 05/07/2024 us Justen Gale MD OUTPT REFERRALS EXT/INT Final Result Performing Organization [facility] de Phone Number SCAN * CMP (COMPREHENSIVE METABOLIC PANEL) (12/04/2023 12:00 AM CDT) 12/04/2023 us Provider Scan CHEMISTRY ORDERABLES Final Resul t Performing Organization Address [facility] de Phone Number SCAN * HEMOGLOBIN, A1C (10/02/2023 12:00 AM CDT) HGB-A1C 7.8 SCAN 10/02/2023 us Provider Scan CHEMISTRY ORDERABLES Final Resul t Performing Organization Address [facility] de Phone Number SCAN * PATHOLOGY CYTOLOGY IMAGING NURSE (07/05/2022 2:24 PM CDT) SPECIMEN ADEQUACY A scant cellular component is noted. Scant cellularity is likely due to presence of lubricant. 07/08/2022 8:38 AM CDT [facility] DESCRIPTIVE DIAGNOSIS NEGATIVE FOR INTRAEPITHELIAL LESIONS OR MALIGNANCY. 07/08/2022 8:38 AM CDT [facility] R FINDINGS Atrophic hormonal pattern. 07/08/2022 8:38 AM CDT [facility] Automated Examination This sample was not evaluated by the automated imaging and review system ([employer] System, [employer], [place], [place] due to technical and / or biologic factor(s). The case was screened, reviewed, and finalized by a account advisor and / or pathologist. 07/08/2022 8:38 AM CDT [facility] Disclaimer The PAP smear is a [...] unless clinically indicated. 07/08/2022 8:38 AM CDT [facility] Other CERVIX UTERI STRUCTURE / Unknown Non-Phlebotomy Collection / Unknown 07/05/2022 2:24 PM CDT 07/05/2022 2:24 PM CDT us Pili Elkins APRN, NETTA PATHOLOGY/CYTOLOGY O RDERABLES Final Result Performing Organization Address City/State/[facility] Co de Phone Number [facility] [address] [place] [address], * HUMAN PAPILLOMA VIRUS (HPV) (07/05/2022 2:24 PM CDT) HPV OTHER HIGH RISK TYPES, PCR NEGATIVE NEGATIVE 07/06/2022 2:37 PM CDT [facility] Comment: The following Other High Risk [...] 16 NEGATIVE NEGATIVE 07/06/2022 2:37 PM CDT [facility] Comment: A negative high-risk HPV result [...] 18 NEGATIVE NEGATIVE 07/06/2022 2:37 PM CDT [facility] Comment: A negative high-risk HPV result [...] DIAGNOSTIC SCREENING 07/06/2022 2:37 PM CDT [facility] Other Non-Phlebotomy Collection / Unknown 07/05/2022 2:24 PM CDT 07/05/2022 2:24 PM CDT Narrative [facility] - 07/06/2022 2:37 PM CDT Performed by Real-Time Polymerase Chain Reaction (PCR) on the Ronnie Vinay 4800. This assay has been validated for use with post-aliquot samples from the [employer] processor. Pili Elkins APRN, CNP LAB SEND OUTS Deann bwoman Result [facility] [address] [place] [address], [facility] [address] [place] [address] * HM COLONOSCOPY (01/09/2020) Genaro Jensen DO PROCEDURE/MINOR SURGICAL ORDERA BLES Final Result * AMB REFERRAL TO PODIATRY (08/13/2019) Alvarez Mensah MD OUTPATIENT REFERRALS Final Res ult * POCT STOOL, OCCULT BLOOD, DIAGNOSTIC (09/07/2018 1:20 PM CDT) OCCULT BLOOD, STOOL Negative Negative, Other POC HEMOCULT CONTROL Professor Computer Science Pass 09/07/2018 1:20 PM CDT Pili Elkins APRN, DISTRICT COURT JUDGE POINT OF CARE TESTIN G (MANUAL) Final Result from Last 3 Months or Most Recently Relevant to Health Maintenance Insurance MEDICARE C [employer] Care Teams Chemical Production Engineer Relationship Specialty Start Date End Date Justen Gale MD #[address] [address] PCP - General Family Medicine 10/17/17 David Roberts APRN, DISTRICT COURT JUDGE [address] [place] [address] Nurse Practitioner Advanced Practice Nurse 01/31/22 Annel Rod MD [address] [address] Consulting Physician Endocrinology 07/01/22
--- OUTSIDE RECORDS SUMMARY | 2024-07-11 03:32 | XMS_ITS | Encounter Summary ---
Author Organization [facility] Address [address] [place] [address] Phone Care Team Providers Care Food And Nutrition Supervisor Name Role Phone Justen Gale MD Primary Care Provider [phone] David Roberts APRN, AUTOMATIC RIVETING MACHINE OPERATOR Unavailable [phone] Annel Rod MD Unavailable Encounter Details Date Type Department Care Team (Late st Contact Info) Description 06/05/2020 Lab [facility] [address] [place] [address] Pili Elkins APRN, AUTOMATIC RIVETING MACHINE OPERATOR [address] [address] Frequency of micturition Social History [...] COVID-19? No / Unsure 2020 11:37 AM EDITOR SCHOOL PHOTOGRAPH documented as of this encounter Plan of Treatment Not on file documented as of this encounter Procedures Procedure Name Priority Date/Time Associated Diagnosis Comments URINALYSIS REFLEX IF INDICATED BY ABNORMAL RESULTS Routine 06/05/2020 4:45 PM EDITOR SCHOOL PHOTOGRAPH Frequency of micturition documented in this encounter Results * (ABNORMAL) URINALYSIS REFLEX IF INDICATED BY ABNORMAL RESULTS (06/05/2020 4:45 PM EDITOR SCHOOL PHOTOGRAPH) SPECIFIC GRAVITY 1.020 1.003 - 1.030 06/05/2020 5:19 PM EDITOR SCHOOL PHOTOGRAPH [facility] URINE PH 5.0 5.0 - 9.0 06/05/2020 5:19 PM EDITOR SCHOOL PHOTOGRAPH [facility] WBC ESTERASE Negative Negative 06/05/2020 5:19 PM EDITOR SCHOOL PHOTOGRAPH [facility] NITRITE Negative Negative 06/05/2020 5:19 PM [facility] PROTEIN, RANDOM URINE Negative Negative 06/05/2020 5:19 PM [facility] URINE GLUCOSE, QUAL Negative Negative 06/05/2020 5:19 PM [facility] URINE KETONES Negative Negative 06/05/2020 5:19 PM EDITOR SCHOOL PHOTOGRAPH [facility] UROBILINOGEN Normal Normal mg/dL 06/05/2020 5:19 PM [facility] URINE BILIRUBIN Negative Negative 5:19 PM [facility] URINE BLOOD 25 /uL(A) Negative leandro/ul 06/05/2020 5:19 PM [facility] URINALYSIS COLOR Yellow 06/05/19 5:19 PM [facility] URINALYSIS CLARITY Clear 06/05/2020 5:19 PM [facility] WBC (Urine) 0-5 Negative, 0-5 /hpf 06/05/2020 5:19 PM [facility] URINE RBC'S 3-5(A) Negative, 0-2 /hpf 06/05/2020 5:19 PM EDITOR SCHOOL PHOTOGRAPH [facility] EPITHELIAL CELLS Small amount /lpf 2020 5:19 PM EDITOR SCHOOL PHOTOGRAPH [facility] BACTERIA, URINE Few(A) Negative /hpf 06/05/2020 5:19 PM EDITOR SCHOOL PHOTOGRAPH [facility] Urine URINE SPECIMEN / Unknown Non-Phlebotomy Collection / Unknown 06/05/2020 4:45 PM EDITOR SCHOOL PHOTOGRAPH 06/05/2020 5:00 PM EDITOR SCHOOL PHOTOGRAPH us Pili Elkins APRN, CNP URINE ORDERABLES Fin al Result [facility] [place] [address] documented in this encounter Visit Diagnoses Diagnosis Frequency of micturition Urinary frequency documented in this encounter Additional Health Concerns Assessment Noted Time PHQ-9 Depression Total Score: 0 09/08/19 19 1:00 PM CDT documented as of this encounter Care Teams Food And Nutrition Supervisor Relationship Specialty Start Date End Date Justen Gale MD #[address] [address] PCP - General Family Medicine 10/17/17 David Roberts APRN, AUTOMATIC RIVETING MACHINE OPERATOR [address] [place] [address] Nurse Practitioner Advanced Practice Nurse 01/31/22 Annel Rod MD #[address] [address] Consulting Physician Endocrinology 07/01/22 documented as of this encounter
--- OUTSIDE RECORDS SUMMARY | 2024-07-11 03:32 | XMS_ITS ---
Author Organization [facility] Address [address] [facility] [place] [address] Care Team Providers Care Contract Post Office Clerk Name Role Phone Justen Gale MD Primary Care Provider [phone] Active Problems Problem Noted Date Diagnosed Date [...] treatments are documented for this patient in [facility]. Treatments may have been administered in another system. Lifetime Dose Tracking * Chemical Lifetime Dose Automatic Entry Manual Entr y Dose Length Product 1,838 mGy-cm 1,838 mGy-cm 0 mGy-cm Resolved Problems Problem Noted Date Diagnosed Date Resolved Date Rash 03/21/2023 04/18/2023
--- OUTSIDE RECORDS SUMMARY | 2024-07-11 03:32 | XMS_ITS | Encounter Summary ---
Author Organization [facility] Address [address] [place] [address] Phone Care Team Providers Care Nutritional Health Coach Name Role Phone Justen Gale MD Primary Care Provider [phone] David Roberts APRN, J2EE JAVA DEVELOPER Unavailable [phone] Annel Rod MD Unavailable Reason for Visit * Reason Comments Medication Refill Encounter Details Date Type Department Care Team (Late st Contact Info) Description 03/05/2023 Refill [facility] - [facility] Medicine [facility] [address] [place] [address] Pili Elkins APRN, J2EE JAVA DEVELOPER #[address] [address] Medication Refill Social History Tobacco [...] discontinued on 10/19/2022 by Justen Gale MD R PATROL OPERATOR documented in this encounter Plan of Treatment Not on file documented as of this encounter Visit Diagnoses Diagnosis Essential hypertension Unspecified essential hypertension documented in this encounter Additional Health Concerns Assessment Noted Time PHQ-9 Depression Total Score: 8 01/18/20 23 2:24 PM CDT documented as of this encounter Care Teams Nutritional Health Coach Relationship Specialty Start Date End Date Justen Gale MD #[address] [address] PCP - General Family Medicine 10/17/17 David Roberts APRN, CNP [address] [place] [address] Nurse Practitioner Advanced Practice Nurse 01/31/22 Annel Rod MD #[address] [address] Consulting Physician Endocrinology 07/01/22 documented as of this encounter
--- OUTSIDE RECORDS SUMMARY | 2024-07-11 03:32 | XMS_ITS | Encounter Summary ---
Author Organization [facility] Address [address] [address] Phone Care Team Providers Care Seed Analyst Name Role Phone Justen Gale MD Primary Care Provider [phone] David Roberts APRN, ADVANCED MANUFACTURING ASSOCIATE Unavailable [phone] Annel Rod MD Unavailable Reason for Visit * Reason Comments Medication Refill Encounter Details Date Type Department Care Team (Late st Contact Info) Description 08/07/2023 Refill [facility] - End[facility]ology - [place] [address] [place] [address] Annel Rod MD #[address] [address] Medication Refill Social History Tobacco [...] as of this encounter Care Teams Seed Analyst Relationship Specialty Start Date End Date Justen Gale MD #2 [facility] [address] [place] [address] PCP - General Family Medicine 10/17/17 David Roberts APRN, NETTA [address] [place] [address] Nurse Practitioner Advanced Practice Nurse 01/31/22 Annel Rod MD #[address] [address] Consulting Physician Endocrinology 07/01/22 documented as of this encounter
--- OUTSIDE RECORDS SUMMARY | 2024-07-11 03:32 | XMS_ITS | Encounter Summary ---
Author Organization [facility] Address [address] [place] [address] Phone Care Team Providers Care Construction Carpenters Helper Name Role Phone Justen Gale MD Primary Care Provider [phone] David Roberts APRN, PERSONNEL ANALYST Unavailable [phone] Annel Rod MD Unavailable Reason for Visit * Reason Comments Medication Refill Encounter Details Date Type Department Care Team (Late st Contact Info) Description 07/12/2022 Refill [facility] Family Medicine [facility] #[address] [place] [address] Justen Gale MD #[address] [address] Medication Refill Social History Tobacco Use Types [...] 07/05/22 Office Visit Pili Elkins APRN, NETTA [facility] 05/02/22 Office Visit Justen Gale MD [facility] [place] 03/03/22 Office Visit Pili Elkins APRN, PERSONNEL ANALYST [facility] 01/03/22 Office Visit Dannielle Berg PAC [facility] 12/07/21 Office Visit Pili Elkins APRN, PERSONNEL ANALYST [facility] 11/09/21 Office Visit Pili Elkins APRN, NETTA [facility] 10/08/21 Office Visit Angelito Alegria APRN, NETTA [facility] 08/30/21 Office Visit Justen Gale MD [facility] Showing recent visits within past 365 days [...] as of this encounter Care Teams Construction Carpenters Helper Relationship Specialty Start Date End Date Justen Gale MD #2 [facility] [address] [place] [address] PCP - General Family Medicine 10/17/17 David Roberts APRN, PERSONNEL ANALYST [address] [place] [address] Nurse Practitioner Advanced Practice Nurse 01/31/22 Annel Rod MD #2 [facility] [address] [place] [address] Consulting Physician Endocrinology 07/01/22 documented as of this encounter
--- OUTSIDE RECORDS SUMMARY | 2024-07-11 03:32 | XMS_ITS | Encounter Summary ---
Author Organization [facility] Address [address] [place] [address] Phone Care Team Providers Care Gmat Tutor Name Role Phone Justen Gale MD Primary Care Provider [phone] David Roberts APRN, TELEMARKETER Unavailable [phone] Annel Rod MD Unavailable Reason for Visit * Reason Onset Date Comments Medication Refill 08/06/2020 Encounter Details Date Type Department Care Team (Late st Contact Info) Description 08/06/2020 Refill [facility] Family [facility] #2 [place] [id number] Justen Gale MD #[address] [address] Medication Refill Social History Tobacco Use Types [...] Outpatient Visits 2 weeks ago [facility] Pili Mueller APN, TELEMARKETER 2 months ago Increased urinary frequency [facility] Pili Mueller TYPESETTER APPRENTICE, TELEMARKETER 5 months ago Urinary frequency [facility] Pili Mueller TYPESETTER APPRENTICE, TELEMARKETER 8 months ago Type 2 diabetes mellitus with diabetic polyneuropathy, with long- term current use of insulin (HCC) [facility] Pili Mueller TYPESETTER APPRENTICE, TELEMARKETER 9 months ago [facility] Upcoming Appointments Future Appointments In 6 days Pili Elkins APN, TELEMARKETER [facility] Elias Mcgee [facility] ARM MAKER - Recent and Past Visits Recent Visits Date Type Provider Dept 07/20/20 Office Visit Pili Elkins APN, TELEMARKETER [facility] [place] 06/05/20 Office Visit Pili Elkins APN, TELEMARKETER [facility] 02/17/20 Office Visit Pili Elkins APN, CNP [facility] 12/03/19 Office Visit Pili Elkins APN, CNP [facility] 11/05/19 Telemedicine Justen Gale MD [facility] 07/25/19 Tele[facility]icine [facility] within past 460 [...] documented as of this encounter Care Teams Gmat Tutor Relationship Specialty Start Date End Date Justen Gale MD [facility] [address] [address] PCP - General Family Medicine 10/17/17 David Roberts APRN, CNP #[address] [place] [address] Nurse Practitioner Advanced Practice Nurse 01/31/22 Annel Rod MD #[address] [address] Consulting Physician Endocrinology 07/01/22 documented as of this encounter
--- OUTSIDE RECORDS SUMMARY | 2024-07-11 03:32 | XMS_ITS | Encounter Summary ---
Author Organization [facility] Address [address] [place] [address] Phone Care Team Providers Care Poultry Debeaker Name Role Phone Justen Gale MD Primary Care Provider [phone] David Roberts APRN, ORAL THERAPIST Unavailable [phone] Annel Rod MD Unavailable Encounter Details Date Type Department Care Team (Late st Contact Info) Description 05/13/2024 Results Follow-Up [facility] - Family Medicine [facility] #2 [place] [address] Justen Gale MD #[address] [address] Social History Tobacco Use Types Packs/Day Years [...] documented as of this encounter Care Teams Poultry Debeaker Relationship Specialty Start Date End Date Justen Gale MD #2 [facility] [address] [place] [address] PCP - General Family Medicine 10/17/17 David Roberts APRN, NETTA #[address] [place] [address] Nurse Practitioner Advanced Practice Nurse 01/31/22 Annel Rod MD #2 [facility] [address] [place] [address] Consulting Physician Endocrinology 07/01/22 documented as of this encounter
--- OUTSIDE RECORDS SUMMARY | 2024-07-11 03:32 | XMS_ITS | Encounter Summary ---
Author Organization [facility] Address [address] [place] [address] Phone Care Team Providers Care Lime Supervisor Name Role Phone Justen Gale MD Primary Care Provider [phone] David Roberts APRN, SOLUTIONS OPERATOR Unavailable [phone] Annel Rod MD Unavailable Reason for Visit * Reason Comments Medication Refill Encounter Details Date Type Department Care Team (Late st Contact Info) Description 04/13/2023 Refill [facility] Endocr[facility]ology - [place] #2 [place] [address] Annel Rod MD #[address] [address] Medication Refill Social History Tobacco [...] Jennifer Wang, RN - 04/14/2023 10:00 AM GENERAL NEUROLOGIST Requested Prescriptions Pending Prescriptions Disp Refills ??? Continuous Blood Gluc Sensor (FreeStyle Eileen 2 Sensor) Misc [Pharmacy Med Name: FREESTYLE EILEEN 2 SENSOR] 6 Each 1 Sig: APPLY 1 SENSOR AND WEAR FOR 14 DAYS TO CHECK BLOOD SUGAR Next appt: 05/30/2023 RAL NEUROLOGIST documented in this encounter Plan of Treatment Not on file documented as of this encounter Visit Diagnoses Not on filedocumented in this encounter Additional Health Concerns Assessment Noted Time PHQ-9 Depression Total Score: 8 01/18/20 23 2:24 PM CDT documented as of this encounter Care Teams Lime Supervisor Relationship Specialty Start Date End Date Justen Gale MD #[address] [address] PCP - General Family Medicine 10/17/17 David Roberts APRN, NETTA #[address] [place] [address] Nurse Practitioner Advanced Practice Nurse 01/31/22 Annel Rod MD #[address] [address] Consulting Physician Endocrinology 07/01/22 documented as of this encounter
--- OUTSIDE RECORDS SUMMARY | 2024-07-11 03:32 | XMS_ITS | Clinical Summary ---
Author Organization [facility] Address [address] [place] [address] Phone Care Team Providers Care Shipyard Painting Supervisor Name Role Phone Justen Gale MD Primary Care Provider [phone] Allergies Active Allergy Reactions Criticality Noted Date [...] - 6.0 % 09/29/2017 10:28 AM CDT [employer] [facility] EST. AVG GLUCOSE, A1C 186 mg/dL 09/29/2017 10:28 AM CDT [employer] [facility] Blood Venipuncture / Unknown 09/28/2017 8:41 PM CDT 09/28/2017 8:46 PM CDT Narrative [facility] - 09/29/2017 10:28 AM CDT HGB A1C INTERPRETATION NORMAL: <5.7% PRE-DIABETES: 5.7 - 6.4% DIABETES: 6.5% OR GREATER us Francisco Castaneda MD CHEMISTRY ORDERABLES Final Resul t [facility] [employer] [facility]# [id number] [address] [facility] [place] [address] * (ABNORMAL) LIPID PANEL (09/28/2017 8:41 PM CDT) CHOLESTEROL 174 <200 mg/dL 09/30/2017 2:45 AM CDT [facility] [employer] [facility] TRIGLYCERIDE 109 <150 mg/dL 09/30/2017 2:45 AM CDT [facility] [employer] [facility] HDL 45 40 - 59 mg/dL 09/30/2017 2:45 AM CDT [facility] [employer] [facility] LDL CALCULATED 107(H) <100 mg/dL 09/30/2017 2:45 AM CDT [facility] [employer] [facility] NON-HDL CHOLESTEROL 129 <130 mg/dL 09/30/2017 2:45 AM CDT [facility] [employer] [facility] Blood Venipuncture / Unknown 09/28/2017 8:41 PM CDT 09/28/2017 8:46 PM CDT Narrative [facility] - 09/30/2017 2:45 AM CDT TOTAL [...] Resul t [facility] [employer] [facility] [id number] [address] [facility] [place] [address] from Last 3 Months or Most Recently Relevant to Health Maintenance Insurance Advance Directives For more information, please contact: [phone] * Full Code (Latest Code Status on File) Date Activated Date Inactivated Comments 09/29/2017 7:45 AM 09/30/2017 9:14 PM * Full Code Date Activated Date Inactivated Comments 09/29/2017 1:25 AM 09/29/2017 7:45 AM Care Teams Shipyard Painting Supervisor Relationship Specialty Start Date End Date Justen Gale MD [address] [address] [place] [address] PCP - General Cardiovascular Disease 09/14/17
--- OUTSIDE RECORDS SUMMARY | 2024-07-11 03:32 | XMS_ITS | Encounter Summary ---
Author Organization [facility] Address [address] [place] [address] Phone Care Team Providers Care Custodial Aide Name Role Phone Justen Gale MD Primary Care Provider [phone] David Roberts APRN, RETURNS CLERK Unavailable [phone] Annel Rod MD Unavailable Reason for Visit * Reason Comments Medication Refill Encounter Details Date Type Department Care Team (Late st Contact Info) Description 09/30/2023 Refill [facility] - Endocrinology - [place] [address] [place] [address] Annel Rod MD [address] [address] Medication Refill Social History Tobacco [...] documented as of this encounter Care Teams Custodial Aide Relationship Specialty Start Date End Date Justen Gale MD [address]2 [facility] [address] [place] [address] PCP - General Family Medicine 10/17/17 David Roberts APRN, NETTA [address] [place] [address] Nurse Practitioner Advanced Practice Nurse 01/31/22 Annel Rod MD [address] [address] Consulting Physician Endocrinology 07/01/22 documented as of this encounter
--- OUTSIDE RECORDS SUMMARY | 2024-07-11 03:32 | XMS_ITS | Encounter Summary ---
Author Organization [facility] Address [address] [place] [address] Phone Care Team Providers Care Cereal Chemist Name Role Phone Justen Gale MD Primary Care Provider [phone] David Roberts APRN, BANDER AND CELLOPHANER HELPER MACHINE Unavailable [phone] Annel Rod MD Unavailable Reason for Visit * Reason Comments Medication Refill Encounter Details Date Type Department Care Team (Late st Contact Info) Description 10/24/2022 Refill [facility] - Family Medicine [facility] [place] [address] [place] [address] Pili Elkins APRN, BANDER AND CELLOPHANER HELPER MACHINE [address] [address] Medication Refill Social History Tobacco [...] documented as of this encounter Care Teams Cereal Chemist Relationship Specialty Start Date End Date Justen Gale MD [address] [facility] [address] [place] [address] PCP - General Family Medicine 10/17/17 David Roberts APRN, NETTA [address] [place] [address] Nurse Practitioner Advanced Practice Nurse 01/31/22 Annel Rod MD [address] [facility] [address] [place] [address] Consulting Physician Endocrinology 07/01/22 documented as of this encounter
--- OUTSIDE RECORDS SUMMARY | 2024-07-11 03:32 | XMS_ITS | Clinical Summary ---
Author Organization [facility] Address [address] [facility] [place] [address] Care Team Providers Care Awning Maker Name Role Phone Justen Gale MD Primary Care Provider [phone] Source Comments [facility],non-sac-osage hospital Affiliates and Associated Physician Practices is amultiple site organization consisting of ambulatory clinics and hospital sitesin [place], [place], [place] and [place]. This disclosure is being madepursuant to the Care Everywhere program and may not contain all information available regarding this patient. Last updated 18.[facility] [employer] Allergies Active Allergy Reactions Criticality Noted Date [...] Gluc Sensor (FreeStyle Eileen 2 Sensor Systm) [facility] [place] 1 SENSOR AND WEAR FOR 14 [...] 05/16/2023 [facility] [place] of Occupat ional Health - Occupational Stress [...] this topic Medical Devices Implanted Type Area Egg Packer Device Identifier Shelf Expiration Date Model / Serial / Lot Lead Nrstm 60cm Penta 3mm Pdl 16 Chnl Implanted:Qt y: 1 on 09/16/2021 by Maxi Gregg MD at [facility] Right: Spine Thoracic [employer] [id number] / / Description:JJ Slnt Dura Duraseal Pg Trilysine Amine 5 Implanted:Qt y: 1 on 09/16/2021 by Maxi Gregg MD at [facility] Right: Spine Thoracic [employer] David [id number] / / Description:JJ Proclaim Plus 5 Implanted:Qt y: 1 on 02/16/2023 by Maxi Gregg MD at [facility] Left: Back Cardenas Spine [id number] 11/07/2024 3670 / [id number] / Explanted Type Area Egg Packer Device Identifier Shelf Expiration Date Model / Serial / Lot Gntr Nrstm 1.95inx2.19in [employer] Elt Implanted:Qty: 1 on 09/16/2021 by Maxi Gregg MD at [facility] Explanted:Qty: 1 on 10/30/2021 by Maxi [...] - 26 mg/dL 07/30/2023 2:31 AM CDT [facility] Creatinine 0.67 0.56 - 0.96 mg/dL 07/30/2023 2:31 AM CDT [facility] Sodium 136 136 - 145 mmol/L 07/30/2023 2:31 AM CDT [facility] Potassium 4.4 3.5 - 4.5 mmol/L 07/30/2023 2:31 AM CDT [facility] Chloride 101 98 - 107 mmol/L 07/30/2023 2:31 AM [facility] CO2 27 22 - 29 mmol/L 07/30/2023 2:31 AM [facility] Glucose 238(H) 70 - 115 mg/dL 07/30/2023 2:31 AM [facility] Albumin 2.9(L) 3.4 - 5.0 g/dL 07/30/2023 2:31 AM [facility] Calcium 9.4 8.4 - 10.2 mg/dL 07/30/2023 2:31 AM [facility] Phosphorus 3.0 2.9 - 5.1 mg/dL 07/30/2023 2:31 AM [facility] Anion Gap 8 6 - 16 07/30/2023 2:31 AM [facility] BUN/Creatinine Ratio 30(H) 7 - 23 07/30/2023 2:31 AM [facility] Osmolality Calculated 292 275 - 295 mOsm/kg 07/30/2023 2:31 AM [facility] eGFR by CKD-EPI >90 >=90 mL/min/1.7 3 m2 07/30/2023 2:31 AM [facility] Blood BLOOD SPECIMEN / Unknown Lab Venipuncture / Unknown 07/30/2023 1:28 AM CDT 07/30/2023 2:04 AM CDT Brian Bravo MD LAB - CHEMISTRY [facility] Organization Address City/State/ZIP Co de Phone Number [facility] [address] [place] [address], [facility] [phone] * HEPATITIS C AB SCREEN RFLX NAAT QUANT (02/21/2023 6:30 PM CDT) Hepatitis C Antibody Non-react hugh Non-reac tive 02/21/2023 7:32 PM [facility] [...] Solitario MD LAB - CHEMISTRY [facility] [address] [place] [address], [place] [phone] * (ABNORMAL) HEMOGLOBIN A1C (12/25/2022 3:56 AM CDT) Hemoglobin A1c 8.6(H) <=5.6 % 12/25/2022 2:47 PM CDT [facility] Estimated Average Glucose 200 mg/dL 12/25/2022 2:47 PM CDT [facility] Comment: HbA1c Interpretation: Normal [...] Rodriguez MD LAB - CHEMISTR Y ORDERABLES [facility] [address] [place] [address], [place] [phone] from Last 3 Months or Most Recently [...] 3:37 AM 03/23/2023 7:14 PM Care Teams Awning Maker Relationship Specialty Start Date End Date Justen Gale MD PCP - General 07/05/21
--- OUTSIDE RECORDS SUMMARY | 2024-07-11 03:32 | XMS_ITS | Encounter Summary ---
Author Organization [facility] Address [address] [place] [address] Phone Care Team Providers Care Estate Manager Name Role Phone Justen Gale MD Primary Care Provider [phone] David Roberts APRN, CLIENT COORDINATOR Unavailable [phone] Annel Rod MD Unavailable Reason for Visit * Reason Comments Medication Refill Encounter Details Date Type Department Care Team (Late st Contact Info) Description 03/02/2023 Refill [facility] - Family Medicine [facility] [address] [place] [id number] Justen Gale MD [address] [address] Medication Refill Social History Tobacco Use Types [...] Tamika Villarreal RN - 03/02/2023 8:51 AM SCORER HELPER Medication failed the protocol, provider to review [...] Dept 01/17/23 Office Visit Catrina Quiñonez MD [facility] [place] 09/16/22 Office Visit Pili Elkins APRN, NETTA [facility] [place] 07/05/22 Office Visit Pili Elkins APRN, NETTA [facility] [place] 05/02/22 Office Visit Justen Gale MD [facility] [place] 03/03/22 Office Visit Pili Elkins APRN, NETTA [facility] Showing recent visits within past 365 days and meeting all other requirements Future Appointments No visits were found meeting these conditions. Showing future appointments within next 90 days and meeting all other requirements ER HELPER documented in this encounter Plan of Treatment Not on file documented as of this encounter Visit Diagnoses Not on filedocumented in this encounter Additional Health Concerns Assessment Noted Time PHQ-9 Depression Total Score: 8 01/18/20 23 2:24 PM CDT documented as of this encounter Care Teams Estate Manager Relationship Specialty Start Date End Date Justen Gale MD [address] [address] PCP - General Family Medicine 10/17/17 David Roberts APRN, NETTA [address] [place] [address] Nurse Practitioner Advanced Practice Nurse 01/31/22 Annel Rod MD #[address] [id number] Consulting Physician Endocrinology 07/01/22 documented as of this encounter
--- OUTSIDE RECORDS SUMMARY | 2024-07-11 03:32 | XMS_ITS | Referral Summary ---
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 Unavailable [phone] Encounters Date Type Department Care Team Description 07/01/2024 8:52 PM CDT - 07/01/2024 10:18 PM CDT Emergency [facility] Emergency Department [address] [place] [address] Myalgia (Primary Dx); Viral syndrome Discharge Disposition: Discharge to home or self care 05/30/2024 Orders Only [facility] [address] [facility] 8 [place] [address] Radha Mcgrath RN Lymphedema of left arm (Primary Dx); Malignant neoplasm of upper-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, unspecified estrogen receptor status (HCC); Malignant neoplasm of overlapping sites of left female breast, unspecified estrogen receptor status (HCC); Malignant neoplasm of female breast, unspecified estrogen receptor status, unspecified laterality, unspecified site of breast (HCC) 05/21/2024 9:12 PM PATRON ATTENDANT - 05/26/2024 6:45 PM PATRON ATTENDANT Hospital Encounter [address] [phone] Jimmie Zavala MD Liss, MD Ra Parnell, MD Sebastian Claros, MD Carlos Left arm pain (Primary Dx); Left leg pain; Shortness of breath; Urinary tract infection without hematuria, site unspecified; Allergy to drug Discharge Disposition: Discharge to home or self care 05/24/2024 Telephone [facility] [address] [place] [address] Radha Warner RN 05/23/2024 8:10 AM PATRON ATTENDANT Ancillary Procedure [facility] IP [address] [facility] [address] [place] [address] 05/21/2024 12:58 PM PATRON ATTENDANT - 05/21/2024 11:59 PM PATRON ATTENDANT Hospital Encounter AMBULANCE BILLING [address] [place] [address] Discharge Disposition: Discharge to home or self care 05/21/2024 11:00 AM PATRON ATTENDANT - 05/21/2024 11:59 PM PATRON ATTENDANT Hospital Encounter [facility] - Breast Imaging [address] [place] [address] Floor 8 [place] [address] History of breast cancer; Axillary pain, left Discharge Disposition: Discharge to home or self care 05/16/2024 Telephone [facility] [address] [place] [address] 8 [place] [address] Jeanine Ba RMA 05/16/2024 Orders Only [facility] [address] [place] [address] 8 [place] [address] Radha Mcgrath RN History of breast cancer (Primary Dx); Axillary pain, left 05/16/2024 Orders Only [facility] [address] [place] [address] 8 [place] [address] Khris Arthur MD Swelling of left upper extremity (Primary Dx); Swelling of left lower extremity 05/14/2024 4:45 PM PATRON ATTENDANT Lab [facility] - Lab Collection [address] [place] [address] 5 [place] [address] Malignant neoplasm of upper-inner quadrant of left breast in female, estrogen receptor positive (HCC) 05/14/2024 4:36 PM PATRON ATTENDANT - 05/14/2024 11:59 PM PATRON ATTENDANT Hospital Encounter [facility] - Diagnostic Imaging [address] [place] [address] 8 [place] [address] Malignant neoplasm of upper-inner quadrant of left breast in female, estrogen receptor positive (HCC) Discharge Disposition: Discharge to home or self care 05/14/2024 4:00 PM PATRON ATTENDANT Lab [facility] [address] [place] [phone] Malignant neoplasm of upper-inner quadrant of left breast in female, estrogen receptor positive (HCC) 05/14/2024 3:30 PM PATRON ATTENDANT Office Visit [facility] [address] [place] [phone] Khris Arthur MD Swelling of right lower extremity (Primary Dx); Malignant neoplasm of upper-inner quadrant of left breast in female, estrogen receptor positive (HCC); Swelling of right upper extremity; Swelling of left upper extremity; Swelling of left lower extremity 04/22/2024 Telephone [facility] [address] [place] [phone] Radha Mcgrath, RN 04/19/[address] [phone] Lalita Braun, NURIS Scheduling Appointments from Last [...] 05/22/2024 Assessment & Plan (05/26/2024 10:08 AM PATRON ATTENDANT): Presenting with urinary symptoms of right flank [...] 05/22/2024 Assessment & Plan (05/25/2024 7:52 AM PATRON ATTENDANT): Hx of breast cancer c/b DVT/bilateral Pes [...] 05/22/2024 Assessment & Plan (05/22/2024 1:14 PM PATRON ATTENDANT): -long-standing chronic back pain -CT L spine [...] 09/12/2021 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) 2021 [facility] (current) use 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 inhibitors 10/17/2019 Thyroid [...] complication, without long-term current use of insulin ([facility]) 10/23/2017 Assessment & Plan [...] 10/13/2017 Assessment & Plan (05/22/2024 12:29 PM PATRON ATTENDANT): -Hx stage II, ER positive, HER2 negative breast cancer, on adjuvant exemestane -s/p bilateral mastectomies, left axillary LN dissection, with negative margins -Follows with Khris Somers -Outpatient Medical Oncology Note review indicates plan to continue on exemestane, will complete 10 years of therapy in 12/2024 -Yearly Reclast, next dose 11/2024 Chest pressure 08/01/2017 Positive blood culture 08/01/2017 Hyponatremia 08/01/2017 Diet-controlled diabetes mellitus ([facility]/HCC) 07/23 LUL (obstructive sleep apnea) 08/01/2017 Assessment & Plan (05/22/2024 12:33 PM PATRON ATTENDANT): -Hx LUL -Hospital provided CPAP ordered History of DVT (deep vein thrombosis) 08/01/2017 History of pulmonary embolism 08/01/2017 Generalized weakness 07/27/2017 Dyspnea 07/27/2017 Unintentional weight loss 07/27/2017 Acute cystitis without hematuria 07/27/2017 Nausea and vomiting 07/26/2017 Overview (07/28/2017): Added automatically from request for surgery [id number] Pulmonary embolism 08/09/2016 Assessment & Plan (10/23/2017 2:05 AM CDT): On Rivaroxaban Lymphedema of left upper extremity 08/09/2016 Assessment & Plan (05/25/2024 7:53 AM PATRON ATTENDANT): S/p L axillary lymph node dissection 2014, [...] syndrome Assessment & Plan (05/22/2024 11:18 AM PATRON ATTENDANT): -continue home Requip 5mg nightly Pain of lower extremity 03/12/2013 Overview (07/29/2016): Leg pain Essential hypertension Assessment & Plan (05/23/2024 10:42 AM PATRON ATTENDANT): -Chart history of HTN but not on meds -BP elevated on admission, likely some pain contributing -Monitor closely once pain under adequate control, discussed following up with PCP for this Chronic anticoagulation Restless leg syndrome 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 Type 2 diabetes mellitus without complication Assessment & Plan (05/24/2024 1:39 PM PATRON ATTENDANT): -Last Ha1c 8.4 in 2023, repeat 8.7 [...] drink = 0.6 oz pur e alcohol) [facility] Utilities Answer Date Recorded In [...] often do you attend chur ch or restoration services? More than 4 times per year [...] in a chcf (including now)? No 08/15/2023 Housing Stability Vital Sign Answer [place] e Recorded In the last 12 months, was t here a time when you were not able to pay the mortgage or rent on time? No 05/24/2024 In the past 12 months, how m any times have you moved where you were living? 0 05/24/2024 At any time in the past 12 m [facility], were you homeless or living in a chcf (including now)? No 05/24/2024 Personal Safety Answer Date Recorded Have you ever been in or are you currently in a harmful physical or emotional relationship or is someone making you feel afraid or unsafe? Denies 07/01/2024 Comments No Sex and Gender Information Value Date Recorded Sex Assigned at Not on file Legal Sex Female 12:24 AM PATRON ATTENDANT Gender Identity Not on file Sexual [...] GLUCOSE DEVICE Routine 05/26/2024 4 :27 PM PATRON ATTENDANT POCT GLUCOSE DEVICE Routine 05/26/2024 1 1:38 AM PATRON ATTENDANT POCT GLUCOSE DEVICE Routine 05/26/2024 8 :12 AM PATRON ATTENDANT EGFR Routine 05/26/2024 12:05 AM PATRON ATTENDANT DIFFERENTIAL AUTO Routine 05/26/2024 12: 05 AM PATRON ATTENDANT PHOSPHORUS Routine 05/26/2024 12:05 AM PATRON ATTENDANT COMPREHENSIVE METABOLIC PANEL Routine 05/26/2024 12:05 AM PATRON ATTENDANT MAGNESIUM Routine 05/26/2024 12:05 AM PATRON ATTENDANT CBC WITH AUTO DIFFERENTIAL Routine 05/26/2024 12:05 AM PATRON ATTENDANT POCT GLUCOSE DEVICE Routine 05/25/2024 7 :44 PM PATRON ATTENDANT POCT GLUCOSE DEVICE Routine 05/25/2024 5 :24 PM PATRON ATTENDANT POCT GLUCOSE DEVICE Routine 05/25/2024 1 1:37 AM PATRON ATTENDANT POCT GLUCOSE DEVICE Routine 05/25/2024 7 :27 AM PATRON ATTENDANT EGFR Routine 05/25/2024 12:20 AM PATRON ATTENDANT DIFFERENTIAL AUTO Routine 05/25/2024 12: 20 AM PATRON ATTENDANT PHOSPHORUS Routine 05/25/2024 12:20 AM PATRON ATTENDANT COMPREHENSIVE METABOLIC PANEL Routine 05/25/2024 12:20 AM PATRON ATTENDANT MAGNESIUM Routine 05/25/2024 12:20 AM PATRON ATTENDANT CBC WITH AUTO DIFFERENTIAL Routine 05/25/2024 12:20 AM PATRON ATTENDANT POCT GLUCOSE DEVICE Routine 05/24/2024 8 :13 PM PATRON ATTENDANT POCT GLUCOSE DEVICE Routine 05/24/2024 5 :17 PM PATRON ATTENDANT POCT GLUCOSE DEVICE Routine 05/24/2024 1 2:49 PM PATRON ATTENDANT POCT GLUCOSE DEVICE Routine 05/24/2024 9 :22 AM PATRON ATTENDANT HERPES SIMPLEX VIRUS (HSV) PCR Routine 05/24/2024 8:47 AM PATRON ATTENDANT POCT GLUCOSE DEVICE Routine 05/24/2024 8 :22 AM PATRON ATTENDANT EGFR Routine 05/24/2024 12:29 AM PATRON ATTENDANT DIFFERENTIAL AUTO Routine 05/24/2024 12: 29 AM PATRON ATTENDANT PHOSPHORUS Routine 05/24/2024 12:29 AM PATRON ATTENDANT COMPREHENSIVE METABOLIC PANEL Routine 05/24/2024 12:29 AM PATRON ATTENDANT MAGNESIUM Routine 05/24/2024 12:29 AM PATRON ATTENDANT CBC WITH AUTO DIFFERENTIAL Routine 05/24/2024 12:29 AM PATRON ATTENDANT POCT GLUCOSE DEVICE Routine 05/23/2024 8 :16 PM PATRON ATTENDANT POCT GLUCOSE DEVICE Routine 05/23/2024 6 :14 PM PATRON ATTENDANT POCT GLUCOSE DEVICE Routine 05/23/2024 1 2:17 PM PATRON ATTENDANT US VEIN DUPLEX LOWER EXTREMITY BILATERAL COMPLETE IP Routine 05/23/2024 11:45 AM PATRON ATTENDANT POCT GLUCOSE DEVICE Routine 05/23/2024 8 :16 AM PATRON ATTENDANT DIFFERENTIAL AUTO Routine 05/23/2024 2:3 0 AM PATRON ATTENDANT CBC WITH AUTO DIFFERENTIAL Routine 05/23/2024 2:30 AM PATRON ATTENDANT EGFR Routine 05/23/2024 12:42 AM PATRON ATTENDANT LACTATE DEHYDROGENASE Routine 05/23/2024 12:42 AM PATRON ATTENDANT URIC ACID Routine 05/23/2024 12:42 AM PATRON ATTENDANT TYPE AND SCREEN Timed 05/23/2024 12:42 AM PATRON ATTENDANT PHOSPHORUS Routine 05/23/2024 12:42 AM PATRON ATTENDANT COMPREHENSIVE METABOLIC PANEL Routine 05/23/2024 12:42 AM PATRON ATTENDANT MAGNESIUM Routine 05/23/2024 12:42 AM PATRON ATTENDANT POCT GLUCOSE DEVICE Routine 05/22/2024 8 :56 PM PATRON ATTENDANT POCT GLUCOSE DEVICE Routine 05/22/2024 6 :09 PM PATRON ATTENDANT POCT GLUCOSE DEVICE Routine 05/22/2024 4 :[address] ABDOMEN PELVIS W CONTRAST ED 05/22/2024 2:32 PM PATRON ATTENDANT POCT GLUCOSE DEVICE Routine 05/22/2024 1 2:58 PM PATRON ATTENDANT POCT GLUCOSE DEVICE Routine 05/22/2024 9 :29 AM PATRON ATTENDANT POCT GLUCOSE DEVICE Routine 05/22/2024 6 :[address] CHEST PE W CONTRAST ED 05/22/2024 1:31 AM PATRON ATTENDANT D-DIMER, QUANTITATIVE Routine 05/22/2024 12:24 AM PATRON ATTENDANT URINALYSIS, MICROSCOPIC ONLY Routine 05/21/2024 11:09 PM PATRON ATTENDANT TROPONIN I HIGH-SENSITIVITY 2-HOUR Timed 05/21/2024 11:09 PM PATRON ATTENDANT URINE CULTURE Routine 05/21/2024 11:09 PM PATRON ATTENDANT RESPIRATORY PATHOGEN PANEL Routine 05/21/2024 11:09 PM PATRON ATTENDANT URINALYSIS AND REFLEX TO MICROSCOPIC AND CULTURE Routine 05/21/2024 11:09 PM PATRON ATTENDANT POCT GLUCOSE DEVICE Routine 05/21/2024 8 :55 PM PATRON ATTENDANT TROPONIN I HIGH-SENSITIVITY 4-HOUR Timed 05/21/2024 7:26 PM PATRON ATTENDANT LIPID PANEL STAT 05/21/2024 4:20 PM PATRON ATTENDANT HEMOGLOBIN A1C STAT 05/21/2024 4:20 PM PATRON ATTENDANT EGFR STAT 05/21/2024 4:20 PM PATRON ATTENDANT DIFFERENTIAL AUTO STAT 05/21/2024 4:2 0 PM PATRON ATTENDANT TROPONIN I HIGH-SENSITIVITY SERIES (BASELINE, 2HR, 4HR, 6HR) STAT 05/21/2024 4:20 PM PATRON ATTENDANT COMPREHENSIVE METABOLIC PANEL STAT 05/21/2024 4:20 PM PATRON ATTENDANT CBC WITH AUTO DIFFERENTIAL STAT 05/21/2024 4:20 PM PATRON ATTENDANT XR CHEST PA LATERAL 2 VIEWS ED 05/21/2024 2:23 PM PATRON ATTENDANT POCT GLUCOSE DEVICE Routine 05/21/2024 1 :39 PM PATRON ATTENDANT ECG 12-LEAD STAT 05/21/2024 1:36 PM PATRON ATTENDANT US AXILLARY LEFT Schedule Routine, Read Routine (OP Routine) 05/21/2024 12:13 PM PATRON ATTENDANT History of breast cancer Axillary pain, left URINALYSIS, MICROSCOPIC ONLY Routine 05/14/2024 4:50 PM PATRON ATTENDANT Malignant neoplasm of upper-inner quadrant of left breast in female, estrogen receptor positive (HCC) URINALYSIS AND REFLEX TO MICROSCOPIC AND CULTURE Routine 05/14/2024 4:50 PM PATRON ATTENDANT Malignant neoplasm of upper-inner quadrant of left breast in female, estrogen receptor positive (HCC) XR RIBS LEFT 2 VIEWS Schedule Routine, Read Routine (OP Routine) 05/14/2024 4:44 PM PATRON ATTENDANT Malignant neoplasm of upper-inner quadrant of left [...] breath since last night. 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 AR: VALERY Report ID: [id number] Reading Location: [id number] Procedure Note Juve Gallegos MD - 07/01/2024 [...] Juve Gallegos M.D. AR: VALERY Report ID: [id number] Reading Location: [place] [address] Lila MCKEON [facility] CT PROCEDURES Final Resu lt * (ABNORMAL) Troponin T high-sensitivity 2-hour (07/01/2024 3:43 PM CDT) Trop T hs 27(H) <=14 ng/L Comment: Interpretive Data For further hscTnT resources including the diagnostic algorithm and an aid in interpretation, copy and paste this link: https://nrl.testcatalog.org/show/hsTrop Current Interpretive Data last revised 2020. Testing performed by: [facility], [address] [place] [address]., [id number] Trop T hs delta 0 ng/L CERNER Comment:Testing performed by : [address] [address] Trop T hs interp Insignificant MARY JANE Comment:Testing performed by : [address] [address] Blood 07/01/2024 3:43 PM CDT 07/01/2024 3:52 PM CDT us Ilana Stevens MD LAB BLOOD ORDERABLES F inal Result [facility] [address] [facility] Department [place] [address] * (ABNORMAL) Urinalysis reflex to microscopic and culture Urine (07/01/2024 3:43 PM CDT) Color, ur Yellow Yellow Comment:Testing performed by : [address] [address] Clarity, ur Clear Clear MARY JANE Comment:Testing performed by : [address] [address] Specific gravity, ur 1.020 1.003 - 1.030 MARY JANE Comment:Testing performed by : [address] [address] pH, urine 6.0 MARY JANE Comment: Interpretive Data U rine pH is affected by diet, medications, systemic acid-base disturbances, and renal tubular function. pH may affect urinary stone formation. For example, urine pH below 6.0 may help reduce the tendency for calcium phosphate stones and pH greater than 6.0 may reduce the tendency for uric acid stone formation. Source: [facility] [place] Current Interpretive Data was last revised on 2017 Testing performed by: [address] [address] Protein, ur ql Negative Negative MARY JANE Comment:Testing performed by : [address] [address] Glucose, ur ql 2+(A) Negative MARY JANE Comment:Testing performed by : [address] [address] Ketones, ur Negative Negative MARY JANE PHAM Comment:Testing performed by : [address], [place]., [address] Bilirubin, ur Negative Negative MARY JANE PHAM Comment:Testing performed by : [address], [place]., [address] Blood, ur Trace(A) Negative MARY JANE PHAM Comment:Testing performed by : [address], [place]., [address] Urobilinogen, ur <2.0 <2.0 mg/dL MARY JANE Comment:Testing performed by : [address], [place]., [address] Nitrite, ur Negative Negative MARY JNAE PHAM Comment:Testing performed by : [address], [place]., [address] Leukocyte esterase, ur Negative Negative MARY JANE Comment:Testing performed by : [address], [place]., [address] UA reflex comment Reflex to microscopic UA will be performed. MARY JANE Comment:Testing performed by : [address], [place]., [address] Urine 07/01/2024 3:43 PM CDT 07/01/2024 3:52 PM CDT Ilana Stevens MD LAB MICROBIOLOGY - GEN ERAL ORDERABLES Final Result MARY JANE [address] [facility] Department of Laboratories [place], [place] [id number] * (ABNORMAL) Urinalysis, microscopic only (07/01/2024 3:43 PM CDT) WBC, ur 0-5 0 - 5 /HPF Comment:Testing performed by : [address] [address] RBC, ur 3-5(A) 0 - 2 /HPF MARY JANE PHAM Comment:Testing performed by : [address] [address] Epithelial cells, squamous, ur 1-5 0 - 5 /HPF MARY JANE PHAM Comment:Testing performed by : [address] [place]., [address] Mucous, ur Present(A) MARY JANE PHAM Comment:Testing performed by : [address] [address] Culture Reflex Comment Reflex conditions for urine culture (WBC >10) not met. MARY JANE PHAM Comment:Testing performed by : [facility], [address] [place] [address]., [address] Urine 07/01/2024 3:4 3 PM CDT 07/01/2024 3:52 PM CDT us Ilana Stevens MD LAB URINE ORDERABLES F inal Result MARY JANE PHAM [address] [facility] Department [place] [address] * XR Chest 1 Vw Portable (if [...] Romelia Bowen D.O. PS: PS Report ID: [id number] Reading Location: [id number] Procedure Note Jessi Romelia Macias - 07/01/2024 [...] Romelia Bowen D.O. PS: PS Report ID: [id number] Reading Location: [id number] Ilana Stevens MD IMG XR PROCEDURES Deann l Result * ECG 12 lead (07/01/2024 2:05 PM CDT) Ventricular Rate EKG/Min 76 BPM [facility] Atrial Rate 76 BPM [facility] ID-Interval (MSEC) 130 ms [facility] QRS-Interval (MSEC) 86 ms [facility] QT-Interval (MSEC) 386 ms [facility] QTc 434 ms [facility] P [place] 26 degrees [facility] R [place] 22 degrees [facility] T [place] 46 degrees [facility] Diagnosis Normal sinus rhythm Normal ECG When compared with ECG of 28-DEC-2023 12:49, No significant change was found Confirmed by DUTCH BURGOS M.D. ([id number]) on 07/01/2024 10:10:22 PM [facility] 07/01/2024 2:05 PM CDT 07/01/2024 10:10 PM CDT Ilana Stevens MD ECG ORDERABLES Final Result Performing Organization Address City/[facility]/ZIP Co de Phone Number [facility] * (ABNORMAL) Troponin T high-sensitivity series (baseline, 2hr, 4hr, 6hr) (07/01/2024 2:02 PM CDT) Pathologist [facility] Trop T hs 27(H) <=14 ng/L Comment: Interpretive Data For further hscTnT resources including the diagnostic algorithm and an aid in interpretation, copy and paste this link: https://nrl.testcatalog.org/show/hsTrop Current Interpretive Data last revised 2020. Testing performed by: [address] [address] Blood 07/01/2024 2:02 PM CDT 07/01/2024 2:12 PM CDT Ilana Stevens MD LAB BLOOD ORDERABLES F inal Result Performing Organization Address City/[facility]/RUST Co de Phone Number [facility] [address] [facility] Department [place] [address] * Influenza A/B, RSV, and COVID-19 PCR Nasopharyngeal (07/01/2024 2:02 PM CDT) [facility] COVID-19 RNA Negative Negative Comment:Testing performed by : [address] [address] Influenza A RNA Negative Negative MARY JANE Comment:Testing performed by : [address] [address] Influenza B RNA Negative Negative [facility] Comment:Testing performed by : [address] [address] RSV RNA Negative Negative MARY JANE Comment: Interpretive data: Testing performed by [facility]. This test is performed using the [employer] Xpert Xpress CoV-2/Flu/RSV plus assay. This is a multiplex, real-time reverse transcriptase PCR assay intended for the qualitative detection of nucleic acid from SARS-CoV-2, influenza A, influenza B, and respiratory syncytial virus. This assay has been cleared by the [place] Food and Drug administration. The performance characteristics have been verified by the [facility]. Results must be considered in the clinical context, and a negative result does not rule out infection. Interpretive Data last revised 2023 Testing performed by: [facility], [address] [place] [address]., [address] Nasopharyngeal 07/01/2024 2: 02 PM CDT 07/01/2024 2:12 PM CDT Narrative MARY JANE - 07/01/2024 2:52 PM CDT Is the Patient experiencing symptoms consistent with COVID?->Yes us Ilana Stevens MD LAB MICROBIOLOGY - GEN ERAL ORDERABLES Final Result MARY JANE [address] [facility] Department [place] [address] * eGFR (07/01/2024 2:02 PM CDT) eGFR [...] was last reviewed 2021. Testing performed by: [facility], [address] [place] [address]., [address] Blood 07/01/2024 2:02 PM CDT 07/01/2024 2:12 PM CDT us Ilana Stevens MD LAB BLOOD ORDERABLES F inal Result [facility] [address] [facility] Department [place] [address] * Differential, auto (07/01/2024 2:02 PM CDT) Neutrophil abs 5.3 1.5 - 6.5 K/cumm Comment:Testing performed by : [address] [address] Imm gran abs 0.0 0.0 - 0.1 K/cumm MARY JANE Comment:Testing performed by : [address] [address] Lymphocyte abs 2.6 0.8 - 3.3 K/cumm MARY JANE Comment:Testing performed by : [address] [address] Monocyte abs 0.8 0.2 - 0.8 K/cumm MARY JANE Comment:Testing performed by : [address] [address] Eosinophil abs 0.2 0.0 - 0.5 K/cumm MARY JANE Comment:Testing performed by : [address] [address] Basophil abs 0.0 0.0 - 0.1 K/cumm MARY JANE Comment:Testing performed by : [address] [address] Neutrophil pct 59.1 % MARY JANE Comment: Interpretive Data Percent cell count reference ranges are not reported, since discordance with absolute values may lead to misinterpretation of CBC data. Current Interpretive Data was last revised on 2017. Testing performed by: [address] [address] Imm gran pct 0.2 % MARY JANE Comment: Interpretive Data Percent cell count reference ranges are not reported, since discordance with absolute values may lead to misinterpretation of CBC data. Current Interpretive Data was last revised on 2017. Testing performed by: [address] [address] Lymphocyte pct 29.0 % [facility] Comment: Interpretive Data Percent cell count reference ranges are not reported, since discordance with absolute values may lead to misinterpretation of CBC data. Current Interpretive Data was last revised on 2017. Testing performed by: [facility], [address] [place] [address]., [address] Monocyte pct 9.3 % [facility] Comment: Interpretive Data Percent cell count reference ranges are not reported, since discordance with absolute values may lead to misinterpretation of CBC data. Current Interpretive Data was last revised on 2017. Testing performed by: [address] [address] Eosinophil pct 2.2 % [facility] Comment: Interpretive Data Percent cell count reference ranges are not reported, since discordance with absolute values may lead to misinterpretation of CBC data. Current Interpretive Data was last revised on 2017. Testing performed by: [address] [address] Basophil pct 0.2 % [facility] Comment: Interpretive Data Percent cell count reference ranges are not reported, since discordance with absolute values may lead to misinterpretation of CBC data. Current Interpretive Data was last revised on 2017. Testing performed by: [address] [address] Blood 07/01/2024 2:02 PM CDT 07/01/2024 2:12 PM CDT Ilana Stevens MD LAB BLOOD ORDERABLES F inal Result MARY JANE [address] [facility] [place] [address] * Pro B-type natriuretic peptide [...] Last Revised Date: 2017. Testing performed by: [address] [address] Blood 07/01/2024 2:02 PM CDT 07/01/2024 2:12 PM CDT Ilana Stevens MD LAB BLOOD ORDERABLES F inal Result BANNERPUJA 7[address] [facility] [place] [address] * (ABNORMAL) CBC with auto differential (07/01/2024 2:02 PM CDT) [facility] WBC 9.0 3.8 - 9.9 K/cumm Comment:Testing performed by : [address] [address] Hgb 13.2 11.9 - 15.5 g/dL MARY JANE PHAM Comment:Testing performed by : [address] [address] Hct 41.1 35.6 - 45.5 % MARY JANE Comment:Testing performed by : [address], [address] Plt 277 150 - 400 K/cumm MARY JANE Comment:Testing performed by : [address], [address] MPV 9.5 9.1 - 12.3 fL MARY JANE Comment:Testing performed by : [address], [address] RBC 4.53 3.90 - 5.20 M/cumm MARY JANE Comment:Testing performed by : [address], [address] MCV 90.7 81.3 - 96.4 fL MARY JANE Comment:Testing performed by : [address], [address] MCH 29.1 27.1 - 33.3 pg MARY JANE Comment:Testing performed by : [address], [address] MCHC 32.1(L) 32.3 - 35.7 g/dL MARY JANE Comment:Testing performed by : [address], [address] RDW CV 13.2 11.1 - 14.9 % MARY JANE Comment:Testing performed by : [address], [address] RDW SD 44.2 35.7 - 48.1 fL MARY JANE Comment:Testing performed by : [address], [address] NRBC abs 0.00 0.00 - 0.01 K/cumm MARY JANE Comment:Testing performed by : [address], [address] Blood 07/01/2024 2:02 PM CDT 07/01/2024 2:12 PM CDT us Ilana Stevens MD LAB BLOOD ORDERABLES F inal Result MARY JANE [address] [facility] Department [place] [address] * Comprehensive metabolic panel (07/01/2024 2:02 PM CDT) Sodium 137 135 - 145 mmol/L Comment:Testing performed by : [facility] [address] [place] [address]., [address] Potassium, pl 4.2 3.3 - 4.9 mmol/L MARY JANE Comment:Testing performed by : [address], [place]., [address] Chloride 101 97 - 110 mmol/L MARY JANE Comment:Testing performed by : [address] [address] CO2 27 22 - 32 mmol/L MARY JANE Comment:Testing performed by : [address], [place]., [address] Anion gap 9 2 - 15 mmol/L MARY JANE Comment:Testing performed by : [address] [address] BUN 15 6 - 25 mg/dL MARY JANE Comment:Testing performed by : [address] [address] Creatinine 0.60 0.60 - 1.10 mg/dL MARY JANE Comment:Testing performed by : [address] [address] Glucose 166 70 - 199 mg/dL MARY [...] was last revised 2022. Testing performed by: [address] [address] Calcium 9.8 8.5 - 10.3 mg/dL MARY JANE Comment:Testing performed by : [address] [address] Bilirubin, total 0.5 0.1 - 1.2 mg/dL MARY JANE Comment:Testing performed by : [address] [address] Protein, pl 8.0 6.5 - 8.5 g/dL MARY JANE Comment:Testing performed by : [address] [address] Albumin 3.8 3.5 - 5.0 g/dL MARY JANE Comment:Testing performed by : [address] [address] Alk phos 72 40 - 130 Units/L MARY JANE Comment:Testing performed by : [address] [address] ALT 19 7 - 45 Units/L MARY JANE Comment:Testing performed by : [address] [address] AST 23 10 - 45 Units/L MARY JANE Comment:Testing performed by : [address] [address] Blood 07/01/2024 2:02 PM CDT 07/01/2024 2:12 PM CDT Ilana Stevens MD LAB BLOOD ORDERABLES F inal Result MARY JANE [address] Department [place] [address] * POCT glucose (05/26/2024 4:27 PM PATRON ATTENDANT) Glucose, POC 137 70 - 199 mg/dL Blood 05/26/2024 4:27 PM PATRON ATTENDANT 05/26/2024 4:27 PM PATRON ATTENDANT Carlos Real MD LAB POCT ORDERABLES - DEVICE Fin al Result MARY JANE [facility] Department [place] [address] * POCT glucose (05/26/2024 11:38 AM PATRON ATTENDANT) Glucose, POC 146 70 - 199 mg/dL Blood 05/26/2024 11:3 8 AM PATRON ATTENDANT 05/26/2024 11:38 AM PATRON ATTENDANT Carlos Real MD LAB POCT ORDERABLES - DEVICE Fin al Result Performing Organization Address City/[facility] Co de Phone Number [facility] Department [place] [address] * POCT glucose (05/26/2024 8:12 AM PATRON ATTENDANT) Glucose, POC 134 70 - 199 mg/dL Blood 05/26/2024 8:12 AM PATRON ATTENDANT 05/26/2024 8:12 AM PATRON ATTENDANT Carlos Real MD LAB POCT ORDERABLES - DEVICE Fin al Result Performing Organization Address [facility] de Phone Number [facility] Department [place] [address] * eGFR (05/26/2024 12:05 AM PATRON ATTENDANT) eGFR >90 >=60 mL/min/1. 73 m2 Comment: [...] reviewed 2021. Blood 05/26/2024 12:0 5 AM PATRON ATTENDANT 05/26/2024 12:23 AM PATRON ATTENDANT us Carlos Real MD LAB BLOOD ORDERABLES Final Resul t [facility] One [facility] Department [place] [address] * (ABNORMAL) Differential, auto (05/26/2024 12:05 AM PATRON ATTENDANT) Neutrophil abs 6.4 1.5 - 6.5 K/cumm Imm gran abs 0.0 0.0 - 0.1 K/cumm [facility] Lymphocyte abs 2.9 0.8 - 3.3 K/cumm [facility] Monocyte abs 0.9(H) 0.2 - 0.8 K/cumm [facility] Eosinophil abs 0.3 0.0 - 0.5 K/cumm [facility] Basophil abs 0.0 0.0 - 0.1 K/cumm [facility] Neutrophil pct 60.4 % [facility] Comment: Interpretive Data Percent cell count reference ranges are not reported, since discordance with absolute values may lead to misinterpretation of CBC data. Current Interpretive Data was last revised on 2017. Imm gran pct 0.4 % [facility] Comment: Interpretive Data Percent cell count reference ranges are not reported, since discordance with absolute values may lead to misinterpretation of CBC data. Current Interpretive Data was last revised on 2017. Lymphocyte pct 27.5 % [facility] Comment: Interpretive Data Percent cell count reference ranges are not reported, since discordance with absolute values may lead to misinterpretation of CBC data. Current Interpretive Data was last revised on 2017. Monocyte pct 8.2 % [facility] Comment: Interpretive Data Percent cell count reference ranges are not reported, since discordance with absolute values may lead to misinterpretation of CBC data. Current Interpretive Data was last revised on 2017. Eosinophil pct 3.1 % [facility] Comment: Interpretive Data Percent cell count reference ranges are not reported, since discordance with absolute values may lead to misinterpretation of CBC data. Current Interpretive Data was last revised on 2017. Basophil pct 0.4 % [facility] Comment: Interpretive Data Percent cell count reference ranges are not reported, since discordance with absolute values may lead to misinterpretation of CBC data. Current Interpretive Data was last revised on 2017. Blood 05/26/2024 12:0 5 AM PATRON ATTENDANT 05/26/2024 12:07 AM PATRON ATTENDANT Carlos Real MD LAB BLOOD ORDERABLES Final Resul t [facility] One [facility] Department [place] [address] * (ABNORMAL) CBC with auto differential (05/26/2024 12:05 AM PATRON ATTENDANT) WBC 10.6(H) 3.8 - 9.9 K/cumm Hgb 12.5 11.9 - 15.5 g/dL [facility] Hct 39.2 35.6 - 45.5 % [facility] Plt 248 150 - 400 K/cumm [facility] MPV 9.7 9.1 - 12.3 fL [facility] RBC 4.32 3.90 - 5.20 M/cumm [facility] MCV 90.7 81.3 - 96.4 fL [facility] MCH 28.9 27.1 - 33.3 pg [facility] MCHC 31.9(L) 32.3 - 35.7 g/dL [facility] RDW CV 13.5 11.1 - 14.9 % [facility] RDW SD 45.1 35.7 - 48.1 fL [facility] NRBC abs 0.00 0.00 - 0.01 K/cumm [facility] Blood 05/26/2024 12:0 5 AM PATRON ATTENDANT 05/26/2024 12:07 AM PATRON ATTENDANT Carlos Real MD LAB BLOOD ORDERABLES Final Resul t Performing Organization Address [facility] de Phone Number [facility] [place] [address] * Phosphorus (05/26/2024 12:05 AM PATRON ATTENDANT) Pathologist [facility] Phosphorus, pl 3.2 2.3 - 4.5 mg/dL Blood 05/26/2024 12:0 5 AM PATRON ATTENDANT 05/26/2024 12:08 AM PATRON ATTENDANT Carlos Real MD LAB BLOOD ORDERABLES Final Resul t Performing Organization Address [facility] de Phone Number [facility] Department [place] [address] * Magnesium (05/26/2024 12:05 AM PATRON ATTENDANT) [facility] Magnesium 1.8 1.4 - 2.5 mg/dL Blood 05/26/2024 12:0 5 AM PATRON ATTENDANT 05/26/2024 12:08 AM PATRON ATTENDANT Carlos Real MD LAB BLOOD ORDERABLES Final Resul t Performing Organization Address [facility] de Phone Number [facility] [place] [address] * (ABNORMAL) Comprehensive metabolic panel (05/26/2024 12:05 AM PATRON ATTENDANT) Pathologist [facility] Sodium 136 135 - 145 mmol/L Potassium, pl 4.2 3.3 - 4.9 mmol/L [facility] Chloride 101 97 - 110 mmol/L [facility] CO2 29 22 - 32 mmol/L [facility] Anion gap 6 2 - 15 mmol/L [facility] BUN 19 6 - 25 mg/dL [facility] Creatinine 0.67 0.60 - 1.10 mg/dL [facility] Glucose 164 70 - 199 mg/dL [facility] Comment: Interpretive Data Fasting glucose >/= 126 [...] [facility] Blood 05/26/2024 12:0 5 AM PATRON ATTENDANT 05/26/2024 12:08 AM PATRON ATTENDANT Carlos Real MD LAB BLOOD ORDERABLES Final Resul t Performing Organization Address [facility] de Phone Number [facility] [place] [address] * POCT glucose (05/25/2024 7:44 PM PATRON ATTENDANT) Glucose, POC 160 70 - 199 mg/dL Blood 05/25/2024 7:44 PM PATRON ATTENDANT 05/25/2024 7:44 PM PATRON ATTENDANT Carlos Real MD LAB POCT ORDERABLES - DEVICE Fin al Result Performing Organization Address [facility] de Phone Number [facility] Department [place] [address] * POCT glucose (05/25/2024 5:24 PM PATRON ATTENDANT) Glucose, POC 152 70 - 199 mg/dL Blood 05/25/2024 5:24 PM PATRON ATTENDANT 05/25/2024 5:24 PM PATRON ATTENDANT Carlos Real MD LAB POCT ORDERABLES - DEVICE Fin al Result Performing Organization Address [facility] de Phone Number [facility] [place] [address] * POCT glucose (05/25/2024 11:37 AM PATRON ATTENDANT) Glucose, POC 143 70 - 199 mg/dL Blood 05/25/2024 11:3 7 AM PATRON ATTENDANT 05/25/2024 11:37 AM PATRON ATTENDANT Carlos Real MD LAB POCT ORDERABLES - DEVICE Fin al Result Performing Organization Address [facility] Phone Number [facility] [place] [address] * POCT glucose (05/25/2024 7:27 AM PATRON ATTENDANT) Glucose, POC 134 70 - 199 mg/dL Blood 05/25/2024 7:27 AM PATRON ATTENDANT 05/25/2024 7:27 AM PATRON ATTENDANT Carlos Real MD LAB POCT ORDERABLES - DEVICE Fin al Result Performing Organization Address [facility] de Phone Number [facility] [place] [address] * eGFR (05/25/2024 12:20 AM PATRON ATTENDANT) eGFR >90 >=60 mL/min/1. 73 m2 Comment: [...] reviewed 2021. Blood 05/25/2024 12:2 0 AM PATRON ATTENDANT 05/25/2024 12:43 AM PATRON ATTENDANT us Naila Guzman NP LAB BLOOD ORDERABLES Final Result [facility] One [facility] Department [place] [address] * Differential, auto (05/25/2024 12:20 AM PATRON ATTENDANT) Neutrophil abs 5.9 1.5 - 6.5 K/cumm Imm gran abs 0.0 0.0 - 0.1 K/cumm [facility] Lymphocyte abs 2.4 0.8 - 3.3 K/cumm [facility] Monocyte abs 0.8 0.2 - 0.8 K/cumm [facility] Eosinophil abs 0.3 0.0 - 0.5 K/cumm [facility] Basophil abs 0.0 0.0 - 0.1 K/cumm [facility] Neutrophil pct 62.6 % [facility] Comment: Interpretive Data Percent cell count reference ranges are not reported, since discordance with absolute values may lead to misinterpretation of CBC data. Current Interpretive Data was last revised on 2017. Imm gran pct 0.3 % [facility] Comment: Interpretive Data Percent cell count reference ranges are not reported, since discordance with absolute values may lead to misinterpretation of CBC data. Current Interpretive Data was last revised on 2017. Lymphocyte pct 24.8 % [facility] Comment: Interpretive Data Percent cell count reference ranges are not reported, since discordance with absolute values may lead to misinterpretation of CBC data. Current Interpretive Data was last revised on 2017. Monocyte pct 8.8 % [facility] Comment: Interpretive Data Percent cell count reference ranges are not reported, since discordance with absolute values may lead to misinterpretation of CBC data. Current Interpretive Data was last revised on 2017. Eosinophil pct 3.2 % [facility] Comment: Interpretive Data Percent cell count reference ranges are not reported, since discordance with absolute values may lead to misinterpretation of CBC data. Current Interpretive Data was last revised on 2017. Basophil pct 0.3 % [facility] Comment: Interpretive Data Percent cell count reference ranges are not reported, since discordance with absolute values may lead to misinterpretation of CBC data. Current Interpretive Data was last revised on 2017. Blood 05/25/2024 12:2 0 AM PATRON ATTENDANT 05/25/2024 12:29 AM PATRON ATTENDANT us Naila Guzman NP LAB BLOOD ORDERABLES Final Result [facility] One [facility] Department of Laboratories [place], [place] [id number] * (ABNORMAL) CBC with auto differential (05/25/2024 12:20 AM PATRON ATTENDANT) WBC 9.5 3.8 - 9.9 K/cumm Hgb 12.8 11.9 - 15.5 g/dL [facility] Hct 40.0 35.6 - 45.5 % [facility] Plt 246 150 - 400 K/cumm [facility] MPV 9.8 9.1 - 12.3 fL [facility] RBC 4.42 3.90 - 5.20 M/cumm [facility] MCV 90.5 81.3 - 96.4 fL [facility] MCH 29.0 27.1 - 33.3 pg [facility] MCHC 32.0(L) 32.3 - 35.7 g/dL [facility] RDW CV 13.5 11.1 - 14.9 % [facility] RDW SD 45.3 35.7 - 48.1 fL [facility] NRBC abs 0.00 0.00 - 0.01 K/cumm [facility] Blood 05/25/2024 12:2 0 AM PATRON ATTENDANT 05/25/2024 12:29 AM PATRON ATTENDANT Naila Guzman NP LAB BLOOD ORDERABLES Final Result [facility] [place] [address] * Phosphorus (05/25/2024 12:20 AM PATRON ATTENDANT) Pathologist [facility] Phosphorus, pl 3.1 2.3 - 4.5 mg/dL Blood 05/25/2024 12:2 0 AM PATRON ATTENDANT 05/25/2024 12:29 AM PATRON ATTENDANT Naila Guzman NP LAB BLOOD ORDERABLES Final Result Performing Organization Address [facility] de Phone Number [facility] [place] [address] * Magnesium (05/25/2024 12:20 AM PATRON ATTENDANT) Magnesium 1.9 1.4 - 2.5 mg/dL Blood 05/25/2024 12:2 0 AM PATRON ATTENDANT 05/25/2024 12:29 AM PATRON ATTENDANT Naila Guzman NP LAB BLOOD ORDERABLES Final Result Performing Organization Address City/[facility] de Phone Number [facility] [place] [address] * (ABNORMAL) Comprehensive metabolic panel (05/25/2024 12:20 AM PATRON ATTENDANT) Sodium 138 135 - 145 mmol/L Potassium, pl 4.4 3.3 - 4.9 mmol/L [facility] Chloride 101 97 - 110 mmol/L [facility] CO2 29 22 - 32 mmol/L [facility] Anion gap 8 2 - 15 mmol/L [facility] BUN 20 6 - 25 mg/dL [facility] Creatinine 0.69 0.60 - 1.10 mg/dL [facility] Glucose 156 70 - 199 mg/dL [facility] Comment: Interpretive Data Fasting glucose >/= 126 [...] 2022. Calcium 9.4 8.5 - 10.3 mg/dL [facility] Bilirubin, total 0.5 0.1 - 1.2 mg/dL [facility] Protein, pl 7.4 6.5 - 8.5 g/dL [facility] Albumin 3.4(L) 3.5 - 5.0 g/dL [facility] Alk phos 67 40 - 130 Units/L [facility] ALT 18 7 - 45 Units/L [facility] AST 16 10 - 45 Units/L [facility] Blood 05/25/2024 12:2 0 AM PATRON ATTENDANT 05/25/2024 12:29 AM PATRON ATTENDANT us Naila Guzman NP LAB BLOOD ORDERABLES Final Result [facility] One [facility] Department [place] [address] * POCT glucose (05/24/2024 8:13 PM PATRON ATTENDANT) [facility] Glucose, POC 171 70 - 199 mg/dL Blood 05/24/2024 8:13 PM PATRON ATTENDANT 05/24/2024 8:13 PM PATRON ATTENDANT Carlos Real MD LAB POCT ORDERABLES - DEVICE Fin al Result Performing Organization Address [facility] de Phone Number [facility] [place] [address] * POCT glucose (05/24/2024 5:17 PM PATRON ATTENDANT) Glucose, POC 133 70 - 199 mg/dL Blood 05/24/2024 5:17 PM PATRON ATTENDANT 05/24/2024 5:17 PM PATRON ATTENDANT Carlos Real MD LAB POCT ORDERABLES - DEVICE Fin al Result Performing Organization Address [facility] de Phone Number [facility] [place] [address] * POCT glucose (05/24/2024 12:49 PM PATRON ATTENDANT) Glucose, POC 180 70 - 199 mg/dL Blood 05/24/2024 12:4 9 PM PATRON ATTENDANT 05/24/2024 12:49 PM PATRON ATTENDANT Carlos Real MD LAB POCT ORDERABLES - DEVICE Fin al Result Performing Organization Address [facility] de Phone Number [facility] [place] [address] * POCT glucose (05/24/2024 9:22 AM PATRON ATTENDANT) Glucose, POC 139 70 - 199 mg/dL Blood 05/24/2024 9:22 AM PATRON ATTENDANT 05/24/2024 9:22 AM PATRON ATTENDANT Carlos Real MD LAB POCT ORDERABLES - DEVICE Fin al Result Performing Organization Address [facility] de Phone Number [facility] [place] [address] * Herpes Simplex Virus (HSV) PCR Oral (05/24/2024 8:47 AM PATRON ATTENDANT) [facility] HSV DNA Not Detected Not Detected [facility] Comment: Interpretive Data This assay is performed [...] reviewed on 08/21/2018 Oral 05/24/2024 8:47 AM PATRON ATTENDANT 05/24/2024 9:24 AM PATRON ATTENDANT Narrative MARY JANE [facility] - 05/24/2024 4:28 PM PATRON ATTENDANT Oral ulcer swab Naila Guzman NP LAB MICROBIOLOGY - GENERAL ORDERABLES Final Result [facility] Department [place] [address] [facility] * POCT glucose (05/24/2024 8:22 AM PATRON ATTENDANT) [facility] Glucose, POC 132 70 - 199 mg/dL Blood 05/24/2024 8:22 AM PATRON ATTENDANT 05/24/2024 8:22 AM PATRON ATTENDANT Carlos Real MD LAB POCT ORDERABLES - DEVICE Fin al Result [facility] [place] [address] * eGFR (05/24/2024 12:29 AM PATRON ATTENDANT) [facility] eGFR 87 >=60 mL/min/1. 73 m2 [...] reviewed 2021. Blood 05/24/2024 12:2 9 AM PATRON ATTENDANT 05/24/2024 12:54 AM PATRON ATTENDANT Naila Guzman DEVOPS ARCHITECT LAB BLOOD ORDERABLES Final Result [facility] One [facility] Department [place] [address] * (ABNORMAL) Differential, auto (05/24/2024 12:29 AM PATRON ATTENDANT) Neutrophil abs 5.3 1.5 - 6.5 K/cumm Imm gran abs 0.0 0.0 - 0.1 K/cumm [facility] Lymphocyte abs 3.0 0.8 - 3.3 K/cumm [facility] Monocyte abs 0.9(H) 0.2 - 0.8 K/cumm [facility] Eosinophil abs 0.3 0.0 - 0.5 K/cumm [facility] Basophil abs 0.0 0.0 - 0.1 K/cumm [facility] Neutrophil pct 55.8 % [facility] Comment: Interpretive Data Percent cell count reference ranges are not reported, since discordance with absolute values may lead to misinterpretation of CBC data. Current Interpretive Data was last revised on 2017. Imm gran pct 0.4 % [facility] Comment: Interpretive Data Percent cell count reference ranges are not reported, since discordance with absolute values may lead to misinterpretation of CBC data. Current Interpretive Data was last revised on 2017. Lymphocyte pct 31.4 % [facility] Comment: Interpretive Data Percent cell count reference ranges are not reported, since discordance with absolute values may lead to misinterpretation of CBC data. Current Interpretive Data was last revised on 2017. Monocyte pct 9.0 % [facility] Comment: Interpretive Data Percent cell count reference ranges are not reported, since discordance with absolute values may lead to misinterpretation of CBC data. Current Interpretive Data was last revised on 2017. Eosinophil pct 3.0 % [facility] Comment: Interpretive Data Percent cell count reference ranges are not reported, since discordance with absolute values may lead to misinterpretation of CBC data. Current Interpretive Data was last revised on 2017. Basophil pct 0.4 % [facility] Comment: Interpretive Data Percent cell count reference ranges are not reported, since discordance with absolute values may lead to misinterpretation of CBC data. Current Interpretive Data was last revised on 2017. Blood 05/24/2024 12:2 9 AM PATRON ATTENDANT 05/24/2024 12:54 AM PATRON ATTENDANT us Naila Guzman NP LAB BLOOD ORDERABLES Final Result [facility] One [facility] Department [place] [address] * CBC with auto differential (05/24/2024 12:29 AM PATRON ATTENDANT) WBC 9.5 3.8 - 9.9 K/cumm Hgb 12.6 11.9 - 15.5 g/dL [facility] Hct 39.0 35.6 - 45.5 % [facility] Plt 223 150 - 400 K/cumm [facility] MPV 9.6 9.1 - 12.3 fL [facility] RBC 4.23 3.90 - 5.20 M/cumm [facility] MCV 92.2 81.3 - 96.4 fL [facility] [facility] MCH 29.8 27.1 - 33.3 pg [facility] MCHC 32.3 32.3 - 35.7 g/dL [facility] RDW CV 13.7 11.1 - 14.9 % [facility] RDW SD 46.5 35.7 - 48.1 fL [facility] NRBC abs 0.00 0.00 - 0.01 K/cumm [facility] Blood 05/24/2024 12:2 9 AM PATRON ATTENDANT 05/24/2024 12:54 AM PATRON ATTENDANT us Naila Guzman NP LAB BLOOD ORDERABLES Final Result [facility] [place] [address] * Phosphorus (05/24/2024 12:29 AM PATRON ATTENDANT) Phosphorus, pl 3.6 2.3 - 4.5 mg/dL Blood 05/24/2024 12:2 9 AM PATRON ATTENDANT 05/24/2024 12:54 AM PATRON ATTENDANT Naila Guzman NP LAB BLOOD ORDERABLES Final Result Performing Organization Address City/[facility]/ZIP Co de Phone Number [facility] [place] [address] * Magnesium (05/24/2024 12:29 AM PATRON ATTENDANT) Magnesium 1.9 1.4 - 2.5 mg/dL Blood 05/24/2024 12:2 9 AM PATRON ATTENDANT 05/24/2024 12:54 AM PATRON ATTENDANT Naila Guzman NP LAB BLOOD ORDERABLES Final Result Performing Organization Address City/[facility]/ZIP Co de Phone Number [facility] [place] [address] * (ABNORMAL) Comprehensive metabolic panel (05/24/2024 12:29 AM PATRON ATTENDANT) Pathologist [facility] Sodium 139 135 - 145 mmol/L Potassium, pl 4.3 3.3 - 4.9 mmol/L [facility] Chloride 103 97 - 110 mmol/L [facility] CO2 29 22 - 32 mmol/L [facility] Anion gap 7 2 - 15 mmol/L [facility] BUN 19 6 - 25 mg/dL [facility] Creatinine 0.75 0.60 - 1.10 mg/dL [facility] Glucose 157 70 - 199 mg/dL [facility] Comment: Interpretive Data Fasting glucose >/= 126 [...] 2022. Calcium 9.2 8.5 - 10.3 mg/dL [facility] Bilirubin, total 0.4 0.1 - 1.2 mg/dL [facility] Protein, pl 7.1 6.5 - 8.5 g/dL [facility] Albumin 3.3(L) 3.5 - 5.0 g/dL [facility] Alk phos 65 40 - 130 Units/L [facility] ALT 18 7 - 45 Units/L [facility] AST 17 10 - 45 Units/L [facility] Blood 05/24/2024 12:2 9 AM PATRON ATTENDANT 05/24/2024 12:54 AM PATRON ATTENDANT us Naila Guzman NP LAB BLOOD ORDERABLES Final Result [facility] One [facility] Department [place] [address] * POCT glucose (05/23/2024 8:16 PM PATRON ATTENDANT) Glucose, POC 145 70 - 199 mg/dL Blood 05/23/2024 8:16 PM PATRON ATTENDANT 05/23/2024 8:16 PM PATRON ATTENDANT Carlos Real MD LAB POCT ORDERABLES - DEVICE Fin al Result Performing Organization Address [facility] de Phone Number [facility] [place] [address] * POCT glucose (05/23/2024 6:14 PM PATRON ATTENDANT) Glucose, POC 181 70 - 199 mg/dL Blood 05/23/2024 6:14 PM PATRON ATTENDANT 05/23/2024 6:14 PM PATRON ATTENDANT Carlos Real MD LAB POCT ORDERABLES - DEVICE Fin al Result Performing Organization Address [facility] de Phone Number [facility] [place] [address] * POCT glucose (05/23/2024 12:17 PM PATRON ATTENDANT) Glucose, POC 159 70 - 199 mg/dL Blood 05/23/2024 12:1 7 PM PATRON ATTENDANT 05/23/2024 12:17 PM PATRON ATTENDANT Cem Knapp MD LAB POCT ORDERABLES - DEVIC E Final Result Performing Organization Address [facility] [place] [address] * US Vein Duplex Lower Extremity Bilateral Complete (05/23/2024 11:45 AM PATRON ATTENDANT) LV EF % CONS SCIMAGE Anatomical Region Laterality Modality Vascular Bilateral Ultrasound 05/23/2024 11:1 2 AM PATRON ATTENDANT Narrative 05/23/2024 9:43 PM PATRON ATTENDANT [facility] [employer] [facility] [employer] [facility] - Department of Vascular Surgery, Vascular Laboratory [address] [place] [id number] Lower Extremity Venous Ultrasound Report Patient Name: MOHSEN MARQUES M : 1955 (68y 11m) Study Date: 05/23/2024 11:12:03 AM Gender: F Tech: VELVET Location: [id number] Ref Provider: CARLOS REAL Quality: Adequate Order Provider: CARLOS REAL PROCEDURES: Vascular Report: Venous Duplex imaging was performed bilaterally in the lower extremities. The common femoral, femoral, popliteal, posterior tibial, peroneal veins were evaluated for patency, spontaneity and phasicity with Doppler, compression and augmentation maneuvers. Great saphenous vein proximal at the junction was evaluated with compression maneuvers. INDICATIONS: Localized edema. FINDINGS: Performing Jumpbasting Armhole Baster: Marlys Castillo RVT. Bilateral: Venous Doppler signals [...] Vu Obregon MD FACS 05/23/2024 9:42:19 PM PATRON ATTENDANT Procedure Note Vu Obregon MD - 05/23/2024 [facility] - Department of Vascular Surgery,Vascular Laboratory [address] [place] [address] Lower Extremity Venous Ultrasound Report Patient Name: MOHSEN MARQUES M : 1955 (68y 11m) Study Date: 05/23/2024 11:12:03 AM Gender: F Tech: VELVET Location: [id number] Ref Provider: CARLOS REAL Quality: Adequate Order Provider: CARLOS REAL PROCEDURES: Vascular Report: Venous Duplex imaging was performed bilaterally in the lower extremities.The common femoral, femoral, popliteal, posterior tibial, peroneal veins wereevaluated for patency, spontaneity and phasicity with Doppler, compression and augmentationmaneuvers. Great saphenous vein proximal at the junction was evaluated with compressionmaneuvers. INDICATIONS: Localized edema. FINDINGS: Performing Jumpbasting Armhole Baster: Marlys Castillo RVT. Bilateral: Venous Doppler signals [...] Vu Obregon MD FACS 05/23/2024 9:42:19 PM PATRON ATTENDANT us Carlos Real MD [facility] PROCEDURES Final Result * (ABNORMAL) POCT glucose (05/23/2024 8:16 AM PATRON ATTENDANT) Pathologist [facility] Glucose, POC 204(H) 70 - 199 mg/dL Blood 05/23/2024 8:16 AM PATRON ATTENDANT 05/23/2024 8:16 AM PATRON ATTENDANT Cem Knapp MD LAB POCT ORDERABLES - DEVIC E Final Result [facility] One [facility] [place] [address] * (ABNORMAL) Differential, auto (05/23/2024 2:30 AM PATRON ATTENDANT) Pathologist [facility] Neutrophil abs 8.0(H) 1.5 - 6.5 K/cumm Imm gran abs 0.1 0.0 - 0.1 K/cumm [facility] Lymphocyte abs 2.6 0.8 - 3.3 K/cumm [facility] Monocyte abs 1.0(H) 0.2 - 0.8 K/cumm [facility] Eosinophil abs 0.3 0.0 - 0.5 K/cumm [facility] Basophil abs 0.0 0.0 - 0.1 K/cumm [facility] Neutrophil pct 66.5 % [facility] Comment: Interpretive Data Percent cell count reference ranges are not reported, since discordance with absolute values may lead to misinterpretation of CBC data. Current Interpretive Data was last revised on 2017. Imm gran pct 0.5 % [facility] Comment: Interpretive Data Percent cell count reference ranges are not reported, since discordance with absolute values may lead to misinterpretation of CBC data. Current Interpretive Data was last revised on 2017. Lymphocyte pct 21.9 % [facility] Comment: Interpretive Data Percent cell count reference ranges are not reported, since discordance with absolute values may lead to misinterpretation of CBC data. Current Interpretive Data was last revised on 2017. Monocyte pct 8.5 % [facility] Comment: Interpretive Data Percent cell count reference ranges are not reported, since discordance with absolute values may lead to misinterpretation of CBC data. Current Interpretive Data was last revised on 2017. Eosinophil pct 2.3 % [facility] Comment: Interpretive Data Percent cell count reference ranges are not reported, since discordance with absolute values may lead to misinterpretation of CBC data. Current Interpretive Data was last revised on 2017. Basophil pct 0.3 % [facility] Comment: Interpretive Data Percent cell count reference ranges are not reported, since discordance with absolute values may lead to misinterpretation of CBC data. Current Interpretive Data was last revised on 2017. Blood 05/23/2024 2:30 AM PATRON ATTENDANT 05/23/2024 1:03 AM PATRON ATTENDANT us Naila Guzman NP LAB BLOOD ORDERABLES Final Result [facility] One [facility] Department [place] [address] * (ABNORMAL) CBC with auto differential (05/23/2024 2:30 AM PATRON ATTENDANT) [facility] WBC 11.9(H) 3.8 - 9.9 K/cumm Hgb 12.8 11.9 - 15.5 g/dL [facility] Hct 39.6 35.6 - 45.5 % [facility] Plt 254 150 - 400 K/cumm [facility] MPV 9.7 9.1 - 12.3 fL [facility] RBC 4.43 3.90 - 5.20 M/cumm [facility] MCV 89.4 81.3 - 96.4 fL [facility] MCH 28.9 27.1 - 33.3 pg [facility] MCHC 32.3 32.3 - 35.7 g/dL [facility] RDW CV 13.7 11.1 - 14.9 % [facility] RDW SD 44.6 35.7 - 48.1 fL [facility] NRBC abs 0.00 0.00 - 0.01 K/cumm [facility] Blood 05/23/2024 2:30 AM PATRON ATTENDANT 05/23/2024 1:03 AM PATRON ATTENDANT us Naila Guzman NP LAB BLOOD ORDERABLES Final Result [facility] One [facility] Department [place] [address] * eGFR (05/23/2024 12:42 AM PATRON ATTENDANT) [facility] eGFR 84 >=60 mL/min/1. 73 m2 [...] reviewed 2021. Blood 05/23/2024 12:4 2 AM PATRON ATTENDANT 05/23/2024 1:02 AM PATRON ATTENDANT Naila Guzman NP LAB BLOOD ORDERABLES Final Result Performing Organization Address [facility]/ZIP Co de Phone Number [facility] [place] [address] * Type and screen (05/23/2024 12:42 AM PATRON ATTENDANT) ABO Rh O Positive Dilcia, indirect Negative [facility] Blood 05/23/2024 12:4 2 AM PATRON ATTENDANT 05/23/2024 12:52 AM PATRON ATTENDANT Narrative [facility] - 05/23/2024 1:53 AM PATRON ATTENDANT Has the patient had Daratumumab or Isatuximab in the past 6 months?->Unknown Naila Guzman NP LAB BLOOD BANK TEST ORDERA BLES Final Result Performing Organization Address [facility] Co de Phone Number [facility] [place] [address] * Uric acid (05/23/2024 12:42 AM PATRON ATTENDANT) Uric acid 5.5 2.5 - 7.0 mg/dL Blood 05/23/2024 12:4 2 AM PATRON ATTENDANT 05/23/2024 1:02 AM PATRON ATTENDANT Narrative [facility] - 05/23/2024 1:34 AM PATRON ATTENDANT Monday and only. Morning draw. . Naila Guzman NP LAB BLOOD ORDERABLES Final Result Performing Organization Address City/[facility]/[place] [address] * Phosphorus (05/23/2024 12:42 AM PATRON ATTENDANT) Phosphorus, pl 4.4 2.3 - 4.5 mg/dL Blood 05/23/2024 12:4 2 AM PATRON ATTENDANT 05/23/2024 1:02 AM PATRON ATTENDANT us Naila Guzman NP LAB BLOOD ORDERABLES Final Result Performing Organization Address [facility]/[place] [address] * Magnesium (05/23/2024 12:42 AM PATRON ATTENDANT) Pathologist [facility] Magnesium 1.9 1.4 - 2.5 mg/dL Blood 05/23/2024 12:4 2 AM PATRON ATTENDANT 05/23/2024 1:02 AM PATRON ATTENDANT us Naila Guzman NP LAB BLOOD ORDERABLES Final Result Performing Organization Address [facility]/[place] [address] * Lactate dehydrogenase (LD) (05/23/2024 12:42 AM PATRON ATTENDANT) [facility] Lactate dehydrogenase (LDH) 247 100 - 250 Units/L Blood 05/23/2024 12:4 2 AM PATRON ATTENDANT 05/23/2024 1:02 AM PATRON ATTENDANT Narrative [facility] - 05/23/2024 1:34 AM PATRON ATTENDANT Monday and only. Morning draw. us Naila Guzman NP LAB BLOOD ORDERABLES Final Result Performing Organization Address City/[facility]/[place] [address] * Comprehensive metabolic panel (05/23/2024 12:42 AM PATRON ATTENDANT) Sodium 136 135 - 145 mmol/L Potassium, pl 4.3 3.3 - 4.9 mmol/L [facility] Chloride 101 97 - 110 mmol/L [facility] CO2 29 22 - 32 mmol/L [facility] Anion gap 6 2 - 15 mmol/L [facility] BUN 18 6 - 25 mg/dL [facility] Creatinine 0.77 0.60 - 1.10 mg/dL [facility] Glucose 194 70 - 199 mg/dL [facility] Comment: Interpretive Data Fasting glucose >/= 126 [...] 2022. Calcium 9.5 8.5 - 10.3 mg/dL [facility] Bilirubin, total 0.5 0.1 - 1.2 mg/dL [facility] Protein, pl 7.4 6.5 - 8.5 g/dL [facility] Albumin 3.5 3.5 - 5.0 g/dL [facility] Alk phos 71 40 - 130 Units/L [facility] ALT 19 7 - 45 Units/L [facility] AST 22 10 - 45 Units/L [facility] Blood 05/23/2024 12:4 2 AM PATRON ATTENDANT 05/23/2024 1:02 AM PATRON ATTENDANT us Naila Guzman DEVOPS ARCHITECT LAB BLOOD ORDERABLES Final Result [facility] One [facility] Department [place] [address] * (ABNORMAL) POCT glucose (05/22/2024 8:56 PM PATRON ATTENDANT) Glucose, POC 210(H) 70 - 199 mg/dL Blood 05/22/2024 8:56 PM PATRON ATTENDANT 05/22/2024 8:56 PM PATRON ATTENDANT Cem Knapp MD LAB POCT ORDERABLES - DEVIC E Final Result Performing Organization Address [facility] Co de Phone Number [facility] [place] [address] * POCT glucose (05/22/2024 6:09 PM PATRON ATTENDANT) Glucose, POC 142 70 - 199 mg/dL Blood 05/22/2024 6:09 PM PATRON ATTENDANT 05/22/2024 6:09 PM PATRON ATTENDANT Leo Henry MD LAB POCT ORDERABLES - NILESH CE Final Result Performing Organization Address [facility] de Phone Number [facility] [place] [address] * POCT glucose (05/22/2024 4:26 PM PATRON ATTENDANT) Glucose, POC 133 70 - 199 mg/dL Blood 05/22/2024 4:26 PM PATRON ATTENDANT 05/22/2024 4:26 PM PATRON ATTENDANT Leo Henry MD LAB POCT ORDERABLES - NILESH CE Final Result Performing Organization Address [facility] de Phone Number [facility] [place] [address] * CT Abdomen Pelvis W Contrast (05/22/2024 2:32 PM PATRON ATTENDANT) Anatomical Region Laterality Modality Body N/A Computed Tomogra phy 05/22/2024 4:35 PM PATRON ATTENDANT Impressions 05/22/2024 5:16 PM PATRON ATTENDANT No acute findings within the abdomen or pelvis. Dictated by: Yesi Mendes M.D. The radiology attending physician has personally reviewed this study, and had reviewed and/or edited this written report and agrees with it. Electronically signed by: Kelli Palmer M.D. Narrative 05/22/2024 5:16 PM PATRON ATTENDANT EXAMINATION: Computed tomography of the abdomen and [...] sult * POCT glucose (05/22/2024 12:58 PM PATRON ATTENDANT) Glucose, POC 177 70 - 199 mg/dL Blood 05/22/2024 12:5 8 PM PATRON ATTENDANT 05/22/2024 12:58 PM PATRON ATTENDANT Leo Henry MD LAB POCT ORDERABLES - NILESH CE Final Result [facility] One [facility] Department [place] [address] * (ABNORMAL) POCT glucose (05/22/2024 9:29 AM PATRON ATTENDANT) Glucose, POC 291(H) 70 - 199 mg/dL Blood 05/22/2024 9:29 AM PATRON ATTENDANT 05/22/2024 9:29 AM PATRON ATTENDANT Leo Henry MD LAB POCT ORDERABLES - NILESH CE Final Result Performing Organization Address [facility] Co de Phone Number [facility] Department [place] [address] * POCT glucose (05/22/2024 6:54 AM PATRON ATTENDANT) Glucose, POC 142 70 - 199 mg/dL Blood 05/22/2024 6:54 AM PATRON ATTENDANT 05/22/2024 6:54 AM PATRON ATTENDANT Jimmie Zavala MD LAB POCT ORDERABLES - DEVICE Fin al Result Performing Organization Address [facility] de Phone Number [facility] [place] [address] * CT Chest PE (CTA) W Contrast (05/22/2024 1:31 AM PATRON ATTENDANT) Anatomical Region Laterality Modality Body N/A Computed Tomogra phy 05/22/2024 2:38 AM PATRON ATTENDANT Impressions 05/22/2024 9:12 AM PATRON ATTENDANT No pulmonary embolism. Dictated by: Miguel Milligan MD The radiology attending physician has personally reviewed this study, and had reviewed and/or edited this written report and agrees with it. Electronically signed by: Jayson Rockwell M.D. Narrative 05/22/2024 9:12 AM PATRON ATTENDANT EXAMINATION: CT CHEST PE (CTA) W CONTRAST [...] Result * D-dimer, quantitative (05/22/2024 12:24 AM PATRON ATTENDANT) D-Dimer 414 <=499 ng/mL FEU Comment: Interpretive [...] on 2019. Blood 05/22/2024 12:2 4 AM PATRON ATTENDANT 05/22/2024 12:42 AM PATRON ATTENDANT Angeline Soler MD LAB BLOOD ORDERABLES F inal Result [facility] One [facility] Department [place] [address] * Troponin I high-sensitivity 2-hour (05/21/2024 11:09 PM PATRON ATTENDANT) Trop I hs 5 <=17 ng/L Comment: Interpretive Data For further hscTnI resources including the diagnostic algorithm and an aid in interpretation, copy and paste this link: https://bjhlab.testcatalog.org/show/hsTrop-1 Current Interpretive Data last revised 2019. Trop I hs delta See Comment ng/L [facility] Comment:Inappropriate collec tion time to report a delta. Trop I hs pct delta See Comment % [facility] Comment:Inappropriate collec tion time to report a delta. Trop I hs interp See Comment [facility] Comment:Inappropriate collec tion time to report a delta. Blood 05/21/2024 11:0 9 PM PATRON ATTENDANT 05/21/2024 11:26 PM PATRON ATTENDANT us Cira Castro MD LAB BLOOD ORDERABL ES Final Result [facility] One [facility] [place] [address] * (ABNORMAL) Urinalysis reflex to microscopic and culture Urine (05/21/2024 11:09 PM PATRON ATTENDANT) Color, ur Yellow Yellow Clarity, ur Clear Clear [facility] Specific gravity, ur 1.025 1.003 - 1.030 [facility] pH, urine 6.0 [facility] Comment: Interpretive Data U rine pH is affected by diet, medications, systemic acid-base disturbances, and renal tubular function. pH may affect urinary stone formation. For example, urine pH below 6.0 may help reduce the tendency for calcium phosphate stones and pH greater than 6.0 may reduce the tendency for uric acid stone formation. Source: [facility] [place] Current Interpretive Data was last revised on 2017 Protein, ur ql 1+(A) Negative [facility] Glucose, ur ql Negative Negative [facility] Ketones, ur Negative Negative [facility] Bilirubin, ur Negative Negative [facility] Blood, ur Trace(A) Negative [facility] Urobilinogen, ur <2.0 <2.0 mg/dL [facility] Nitrite, ur Positive(A) Negative [facility] Leukocyte esterase, ur 1+(A) Negative [facility] UA reflex comment Reflex to microscopic UA will be performed. [facility] Urine 05/21/2024 11:0 9 PM PATRON ATTENDANT 05/21/2024 11:22 PM PATRON ATTENDANT Angeline Soler MD LAB MICROBIOLOGY - GEN ERAL ORDERABLES Final Result [facility] One [facility] Department [place] [address] * Respiratory pathogen panel Nasopharyngeal (05/21/2024 11:09 PM PATRON ATTENDANT) Influenza A RNA Not Detected Not Detected Influenza B RNA Not Detected Not Detected [facility] RSV RNA Not Detected Not Detected [facility] COVID-19 RNA Not Detected Not Detected [facility] Coronavirus 229E RNA Not Detected Not Detected [facility] Coronavirus HKU1 RNA Not Detected Not Detected [facility] Coronavirus NL63 RNA Not Detected Not Detected [facility] Coronavirus OC43 RNA Not Detected Not Detected [facility] Adenovirus DNA Not Detected Not Detected [facility] Metapneumovirus RNA Not Detected Not Detected [facility] Rhinovirus/Enterov irus RNA Not Detected Not Detected [facility] Parainfluenza 1 RNA Not Detected Not Detected [facility] Parainfluenza 2 RNA Not Detected Not Detected [facility] Parainfluenza 3 RNA Not Detected Not Detected [facility] Parainfluenza 4 RNA Not Detected Not Detected [facility] B. pertussis DNA Not Detected Not Detected [facility] B. parapertussis DNA Not Detected Not Detected [facility] C. pneumoniae DNA Not Detected Not Detected [facility] M. pneumoniae DNA Not Detected Not Detected [facility] Nasopharyngeal 05/21/2024 11 :09 PM PATRON ATTENDANT 05/22/2024 4:48 AM PATRON ATTENDANT Narrative [facility] - 05/22/2024 5:55 AM PATRON ATTENDANT Is the Patient experiencing symptoms consistent with COVID?->No Surveillance testing for transplant patient?->No Interpretive Data The GitHubArray Respiratory Panel (RP2.1) assay is a multiplexed [...] assay has FDA clearance for testing of DEVOPS ARCHITECT swabs. The performance of additional specimen types has been assessed by the performing laboratory. The performance characteristics of this assay have been determined by [facility] Infectious Disease [facility]. Current interpretive data was last revised on 22. Angeline Soler MD LAB MICROBIOLOGY - GEN ERAL ORDERABLES Final Result [facility] One [facility] [place] [address] * (ABNORMAL) Urinalysis, microscopic only (05/21/2024 11:09 PM PATRON ATTENDANT) WBC, ur 11-20(A) 0 - 5 /HPF RBC, ur 3-5(A) 0 - 2 /HPF [facility] Epithelial cells, squamous, ur 1-5 0 - 5 /HPF [facility] Bacteria, ur 3+(A) [facility] Yeast, ur Trace(A) [facility] Mucous, ur Present(A) [facility] Culture Reflex Comment Reflex to urine culture will be performed. [facility] Urine 05/21/2024 11:0 9 PM PATRON ATTENDANT 05/21/2024 11:21 PM PATRON ATTENDANT Angeline Soler MD LAB URINE ORDERABLES F inal Result [facility] One [facility] [place] [address] * (ABNORMAL) Urine culture Urine (05/21/2024 11:09 PM PATRON ATTENDANT) Report Amended Report - Complete: Greater than or equal to 100,000 colonies/mL of Escherichia coli Plus growth of clinically insignificant bacterial yesenia. (.) Organism ESCHERICHIA COLI [facility] Organism PLUS GROWTH OF CLINICALLY INSIGNIFICANT YESENIA. [facility] Urine 05/21/2024 11:0 9 PM PATRON ATTENDANT 05/22/2024 2:40 AM PATRON ATTENDANT Narrative [facility] - 05/25/2024 10:36 AM PATRON ATTENDANT Urine culture reflexed based upon urinalysis results. Testing performed by [facility] ([phone]) Organism Antibiotic Method Susceptibility Escherichia coli Ampicillin [...] GEN ERAL ORDERABLES Edited Result - Final [facility] Department [place] [address] * POCT glucose (05/21/2024 8:55 PM PATRON ATTENDANT) Glucose, POC 139 70 - 199 mg/dL Blood 05/21/2024 8:55 PM PATRON ATTENDANT 05/21/2024 8:55 PM PATRON ATTENDANT Notinfile Unknown LAB POCT ORDERABLES - DEVICE F inal Result Performing Organization Address [facility] Co de Phone Number [facility] [place] [address] * Troponin I high-sensitivity 4-hour (05/21/2024 7:26 PM PATRON ATTENDANT) Trop I hs 4 <=17 ng/L Comment: Interpretive Data For further hscTnI resources including the diagnostic algorithm and an aid in interpretation, copy and paste this link: https://bjhlab.testcatalog.org/show/hsTrop-1 Current Interpretive Data last revised 2019. Trop I hs delta -1 ng/L [facility] Trop I hs interp Insignificant [facility] Blood 05/21/2024 7:26 PM PATRON ATTENDANT 05/21/2024 7:37 PM PATRON ATTENDANT Cira Castro MD LAB BLOOD ORDERABL ES Final Result Performing Organization Address [facility] Co de Phone Number [facility] Department [place] [address] * Troponin I high-sensitivity series (baseline, 2hr, 4hr, 6hr) (05/21/2024 4:20 PM PATRON ATTENDANT) Trop I hs 5 <=17 ng/L Comment: Interpretive Data For further hscTnI resources including the diagnostic algorithm and an aid in interpretation, copy and paste this link: https://bjhlab.testcatalog.org/show/hsTrop-1 Current Interpretive Data last revised 2019. Blood 05/21/2024 4:20 PM PATRON ATTENDANT 05/21/2024 4:50 PM PATRON ATTENDANT Jimmie Zavala MD LAB BLOOD ORDERABLES Final Resul t Performing Organization Address [facility] de Phone Number [facility] Department [place] [address] * eGFR (05/21/2024 4:20 PM PATRON ATTENDANT) eGFR >90 >=60 mL/min/1. 73 m2 Comment: [...] last reviewed 2021. Blood 05/21/2024 4:20 PM PATRON ATTENDANT 05/21/2024 4:50 PM PATRON ATTENDANT us Jimmie Zavala MD LAB BLOOD ORDERABLES Final Resul t [facility] One [facility] [place] [address] * (ABNORMAL) Differential, auto (05/21/2024 4:20 PM PATRON ATTENDANT) Neutrophil abs 8.0(H) 1.5 - 6.5 K/cumm Imm gran abs 0.0 0.0 - 0.1 K/cumm [facility] Lymphocyte abs 2.4 0.8 - 3.3 K/cumm [facility] Monocyte abs 0.8 0.2 - 0.8 K/cumm [facility] Eosinophil abs 0.2 0.0 - 0.5 K/cumm [facility] Basophil abs 0.0 0.0 - 0.1 K/cumm [facility] Neutrophil pct 69.4 % [facility] Comment: Interpretive Data Percent cell count reference ranges are not reported, since discordance with absolute values may lead to misinterpretation of CBC data. Current Interpretive Data was last revised on 2017. Imm gran pct 0.4 % [facility] Comment: Interpretive Data Percent cell count reference ranges are not reported, since discordance with absolute values may lead to misinterpretation of CBC data. Current Interpretive Data was last revised on 2017. Lymphocyte pct 21.4 % [facility] Comment: Interpretive Data Percent cell count reference ranges are not reported, since discordance with absolute values may lead to misinterpretation of CBC data. Current Interpretive Data was last revised on 2017. Monocyte pct 6.7 % [facility] Comment: Interpretive Data Percent cell count reference ranges are not reported, since discordance with absolute values may lead to misinterpretation of CBC data. Current Interpretive Data was last revised on 2017. Eosinophil pct 1.8 % [facility] Comment: Interpretive Data Percent cell count reference ranges are not reported, since discordance with absolute values may lead to misinterpretation of CBC data. Current Interpretive Data was last revised on 2017. Basophil pct 0.3 % [facility] Comment: Interpretive Data Percent cell count reference ranges are not reported, since discordance with absolute values may lead to misinterpretation of CBC data. Current Interpretive Data was last revised on 2017. Blood 05/21/2024 4:20 PM PATRON ATTENDANT 05/21/2024 4:50 PM PATRON ATTENDANT Jimmie Zavala MD LAB BLOOD ORDERABLES Final Resul t [facility] Department [place] [address] * (ABNORMAL) CBC with auto differential (05/21/2024 4:20 PM PATRON ATTENDANT) WBC 11.4(H) 3.8 - 9.9 K/cumm Hgb 14.0 11.9 - 15.5 g/dL [facility] Hct 43.6 35.6 - 45.5 % [facility] Plt 286 150 - 400 K/cumm [facility] MPV 9.9 9.1 - 12.3 fL [facility] RBC 4.83 3.90 - 5.20 M/cumm [facility] MCV 90.3 81.3 - 96.4 fL [facility] MCH 29.0 27.1 - 33.3 pg [facility] MCHC 32.1(L) 32.3 - 35.7 g/dL [facility] RDW CV 13.6 11.1 - 14.9 % [facility] RDW SD 45.6 35.7 - 48.1 fL [facility] NRBC abs 0.00 0.00 - 0.01 K/cumm [facility] Blood Venous blood specimen / Unknown 05/21/2024 4:20 PM PATRON ATTENDANT 05/21/2024 4:50 PM PATRON ATTENDANT Jimmie Zavala MD LAB BLOOD ORDERABLES Final Resul t Performing Organization Address City/[facility]/ZIP Co de Phone Number [facility] [place] [address] * (ABNORMAL) Hemoglobin A1c (05/21/2024 4:20 PM PATRON ATTENDANT) Hgb A1C 8.7(H) 4.0 - 5.6 % [...] a fasting glucose. Blood 05/21/2024 4:20 PM PATRON ATTENDANT 05/21/2024 4:55 PM PATRON ATTENDANT Leo Henry MD LAB BLOOD ORDERABLES Final Result [facility] One [facility] Department [place] [address] * (ABNORMAL) Lipid panel (05/21/2024 4:20 PM PATRON ATTENDANT) Cholesterol 205(H) 30 - 199 mg/dL Comment: [...] 2017. HDL 55 >=40 mg/dL [facility] Comment: Interpretive Data Ages < or [...] LDL, calculated 134(H) <=129 mg/dL [facility] Comment: Interpretive Data Ages < or [...] 2023. Non-HDL Cholesterol 150 mg/dL [facility] Comment: Interpretive Data Ages < or [...] last revised on 2017. Chol/HDL ratio 4 [facility] Blood 05/21/2024 4:20 PM PATRON ATTENDANT 05/21/2024 4:50 PM PATRON ATTENDANT Narrative [facility] - 05/22/2024 4:17 PM PATRON ATTENDANT Reflex us Leo Henry MD LAB BLOOD ORDERABLES Final Result [facility] One [facility] [place] [address] * Comprehensive metabolic panel (05/21/2024 4:20 PM PATRON ATTENDANT) Sodium 140 135 - 145 mmol/L Potassium, pl 4.3 3.3 - 4.9 mmol/L [facility] Chloride 100 97 - 110 mmol/L [facility] CO2 29 22 - 32 mmol/L [facility] Anion gap 11 2 - 15 mmol/L [facility] BUN 14 6 - 25 mg/dL [facility] Creatinine 0.63 0.60 - 1.10 mg/dL [facility] Glucose 119 70 - 199 mg/dL [facility] Comment: Interpretive Data Fasting glucose >/= 126 [...] 2022. Calcium 10.0 8.5 - 10.3 mg/dL [facility] Bilirubin, total 0.7 0.1 - 1.2 mg/dL [facility] Protein, pl 8.5 6.5 - 8.5 g/dL [facility] Albumin 3.9 3.5 - 5.0 g/dL [facility] Alk phos 83 40 - 130 Units/L [facility] ALT 23 7 - 45 Units/L [facility] AST 22 10 - 45 Units/L [facility] Blood 05/21/2024 4:20 PM PATRON ATTENDANT 05/21/2024 4:50 PM PATRON ATTENDANT us Jimmie Zavala MD LAB BLOOD ORDERABLES Final Resul t [facility] One [facility] [place] [address] * XR Chest Pa Lateral 2 Views (05/21/2024 2:23 PM PATRON ATTENDANT) Anatomical Region Laterality Modality Body, Chest N/A Computed Radiogr aphy 05/21/2024 2:28 PM PATRON ATTENDANT Impressions 05/21/2024 2:36 PM PATRON ATTENDANT The current study is compared with the [...] Jaime Neves M.D. Narrative 05/21/2024 2:36 PM PATRON ATTENDANT EXAMINATION: 2 view chest radiograph Procedure Note [...] Result * POCT glucose (05/21/2024 1:39 PM PATRON ATTENDANT) Glucose, POC 113 70 - 199 mg/dL Blood 05/21/2024 1:39 PM PATRON ATTENDANT 05/21/2024 1:39 PM PATRON ATTENDANT us Notinfile Unknown LAB POCT ORDERABLES - DEVICE F inal Result [facility] One [facility] [place] [address] * ECG 12-LEAD (05/21/2024 1:36 PM PATRON ATTENDANT) Narrative MUSE C - 05/21/2024 1:36 PM PATRON ATTENDANT Gil Mcgrath MD 05/21/2024 1:37 PM ECG [...] in the ED Gil Mcgrath MD 05/21/24 [id number] us Jimmie Zavala MD ECG ORDERABLES Final Result [facility] * Axillary Breast Left (05/21/2024 12:13 PM PATRON ATTENDANT) Anatomical Region Laterality Modality Upper Extremities Left Ultrasound 05/21/2024 12:2 3 PM PATRON ATTENDANT Impressions 05/21/2024 12:23 PM PATRON ATTENDANT 1. Limited ultrasound due to extensive edema [...] Alicia Wilcox M.D. Narrative 05/21/2024 12:23 PM PATRON ATTENDANT EXAMINATION: LEFT AXILLARY ULTRASOUND HISTORY: Patient is [...] by: Alicia Wilcox M.D. Khris Arthur MD [facility] US PROCEDURES Fi nal Result * (ABNORMAL) Urinalysis reflex to microscopic and culture Urine, clean voided (05/14/2024 4:50 PM PATRON ATTENDANT) Color, ur Straw Yellow Clarity, ur Clear Clear [facility] Specific gravity, ur 1.025 1.003 - 1.030 [facility] pH, urine 5.5 [facility] Comment: Interpretive Data U rine pH is affected by diet, medications, systemic acid-base disturbances, and renal tubular function. pH may affect urinary stone formation. For example, urine pH below 6.0 may help reduce the tendency for calcium phosphate stones and pH greater than 6.0 may reduce the tendency for uric acid stone formation. Source: [facility] Current Interpretive Data was last revised on 2017 Protein, ur ql Trace Negative [facility] Glucose, ur ql Negative Negative [facility] Ketones, ur Negative Negative [facility] Bilirubin, ur Negative Negative [facility] Blood, ur Trace(A) Negative [facility] Urobilinogen, ur <2.0 <2.0 mg/dL [facility] Nitrite, ur Negative Negative [facility] Leukocyte esterase, ur Negative Negative [facility] UA reflex comment Reflex to microscopic UA will be performed. [facility] Urine, clean voided 05/14/2024 4:50 PM PATRON ATTENDANT 05/14/2024 7:18 PM PATRON ATTENDANT Khris Arthur MD LAB MICROBIOLOGY - G ENERAL ORDERABLES Final Result Performing Organization Address [facility] Co de Phone Number [facility] [place] [address] * (ABNORMAL) Urinalysis, microscopic only (05/14/2024 4:50 PM PATRON ATTENDANT) WBC, ur 0-5 0 - 5 /HPF RBC, ur 0-2 0 - 2 /HPF [facility] Epithelial cells, squamous, ur 1-5 0 - 5 /HPF [facility] Bacteria, ur Trace(A) [facility] Mucous, ur Present(A) [facility] Culture Reflex Comment Reflex conditions for urine culture (WBC >10) not met. [facility] Urine, clean voided 05/14/2024 4:50 PM PATRON ATTENDANT 05/14/2024 7:18 PM PATRON ATTENDANT hKris Arthur MD LAB URINE ORDERABLES Final Result Performing Organization Address [facility] Co de Phone Number [facility] [place] [address] * XR Ribs Left 2 Views (05/14/2024 4:44 PM PATRON ATTENDANT) Anatomical Region Laterality Modality Rib, Chest Left Digital Radiogra phy 05/14/2024 4:54 PM PATRON ATTENDANT Impressions 05/14/2024 4:54 PM PATRON ATTENDANT 1. No displaced left rib fracture. Electronically signed by: Santiago Gan D.O. Narrative 05/14/2024 4:54 PM PATRON ATTENDANT EXAMINATION: XR RIBS LEFT 2 VIEWS HISTORY: [...] Bone mineral density was performed on a [employer] Discovery Densitometer. Based on machine cross-calibration and [...] by the International Society of Clinical Densitometry. [id number] us Khris Arthur MD IMG DXA PROCEDURES [...] agrees with it. ACC# Date Time Exam [id number] Aug 19, 2016 14:27:00 [facility] [id number] Diag Mamm, inc CAD, unilat L Technologist(s): Carla Harris; ; [id number] Aug 19, 2016 15:39:00 [facility] [id number] Breast US unilateral, ltd L ACC# Date Time Exam [id number] Aug 19, 2016 14:27:00 [facility] [address]98 DiaFatwire Mamm, inc CAD, unilat L Technologist(s): Carla Harris; ; [id number] Aug 19, 2016 15:39:00 [facility] [id number] Breast US unilateral, ltd L EXAMINATION: LEFT [...] SARABIA M.D. on Aug 19 2016 4:20P [id number] Procedure Note Miscellaneous, Not In File / Provider, MD Tyler - 09/17/2016 ANTHONY SARABIA M.D. JUDY RINCON M.D. FINAL REPORT The radiology attending physician has personally reviewed this study, and has reviewed and/or edited this written report and agrees with it. ACC# Date Time Exam [id number] Aug 19, 2016 14:27:00 [facility] [id number] Diag Mamm, inc CAD, unilat L Technologist(s): Carla Harris; ; [id number] Aug 19, 2016 15:39:00 [facility] [id number] Breast US unilateral, ltd L ACC# Date Time Exam [id number] Aug 19, 2016 14:27:00 [facility] [id number] Diag Mamm, inc CAD, unilat L Technologist(s): Carla Harris; ; [id number] Aug 19, 2016 15:39:00 [facility] [id number] Breast US unilateral, ltd L EXAMINATION: LEFT [...] SARABIA M.D. on Aug 19 2016 4:20P [id number] us Not In File Miscellaneous IMG MAMMO PROCEDURES F inal Result from Last 3 Months or Most Recently Relevant to Health Maintenance Insurance [facility] MEDICARE SOLUTIONS MEDICARE SOLUTIONS [facility] MEDICARE Address: [address] [address] [place] [address] MEDICARE SOLUTIONS Advance Directives For more information, please contact: [phone] Documents on File Type Date Recorded Patient Electric Powerline Examiner Expl anation ADVANCE DIRECTIVE 12/23/2021 2:49 PM Power of Post Acute Care Registered Nurse-Medical ADVANCE DIRECTIVE 12/23/2021 2:49 PM Living Will [...] First Alternate Health Care Agent Care Teams Fishing Rod Marker Relationship Specialty Start Date End Date Justen Gale MD [address] [address] PCP - General 10/09/17 Liu Jerez MD Consulting Physician Gastroenterology 07/28/17 [place] [address] [facility] [facility] [address] [place] [address] Consulting Physician Pulmonary Disease 08/03/17 Khris Arthur MD [address] [facility] [address] [place] [address] Medical Oncologist/Mule Spinner Medical Oncology 10/23/17 [place] [address] [facility] [facility] [address] [place] [address] Surgeon Orthopedic Surgery 10/23/17 [place] [address] [facility] [address] [place] [address] Consulting Physician Pain Management 10/23/17 [place] [address] [facility] [address] [place] [address] Referring Physician General Surgery 01/26/18 [place] [address] [facility] [facility] [address] [place] [address] Consulting Physician Neurology 01/26/18
--- OUTSIDE RECORDS SUMMARY | 2024-07-11 03:32 | XMS_ITS | CONTINUITY OF CARE DOCUMENT ---
Author Name ayesha, ayesha Address Unknown Organization [facility] Address [address] [facility] [address] [place] [address] Phone [phone] Care Team Providers Care Pan Greaser Name Role Phone Yamilet DURÁN, Maico Unavailable [phone] ALANIS DURÁN, BRIDGETT Unavailable ALLISON DURÁN, CLARISSE Unavailable [phone] PROBLEMS Condition Status Date Provider Notes Shortness of breath active Ivory Rodriguez Palpitations active Radha Seals INSURANCE PROVIDERS Payer name Policy type / Coverage type [place] red alliance party ID UHC MEDICARE COMPLETE HMO Other [id number] [facility] Medicaid 2 [id number] HISTORY OF PROCEDURES Procedure Date Procedure Name Provider Procedure Notes S tatus Stress EKG Carmine Silverio MD complet ed Regadenoson, 4 units Sergey Saldana MD completed Cardiolite, 2 units Sergey Saldana MD completed SPECT Images Carmine Silverio MD compl eted Holter, 24 or 48 Maico Woodard MD co mpleted
--- OUTSIDE RECORDS SUMMARY | 2024-07-11 03:32 | XMS_ITS | Encounter Summary ---
Author Organization [facility] Address [address] [place] [address] Phone Care Team Providers Care Apparel Merchandiser Name Role Phone Justen Gale MD Primary Care Provider [phone] David Roberts APRN, BANKRUPTCY PROCESSOR Unavailable [phone] Annel Rod MD Unavailable Reason for Visit * Reason Comments Medication Refill Encounter Details Date Type Department Care Team (Late st Contact Info) Description 07/06/2023 Refill [facility] [address] [place] [id number] Justen Gale MD #[address] [address] Medication Refill Social History Tobacco Use Types [...] AM CDT Medication([facility]) [facility] and [facility] Chronic Medication Refill Standing Order for Pediatricand [...] Dept 06/27/23 Office Visit [facility]en [facility] 01/17/23 Office Visit Catrina Qu[facility] Show[facility] recent visits within past 270 [...] documented as of this encounter Care Teams Apparel Merchandiser Relationship Specialty Start Date End Date Justen Gale MD #[address] [address] PCP - General Family Medicine 10/17/17 David Roberts CHILD LIFE ASSISTANT, BANKRUPTCY PROCESSOR [address] [place] [address] Nurse Practitioner Advanced Practice Nurse 01/31/22 Annel Rod MD #2 [facility] [address] [address] Consulting Physician Endocrinology 07/01/22 documented as of this encounter
--- OUTSIDE RECORDS SUMMARY | 2024-07-11 03:32 | XMS_ITS | Encounter Summary ---
Author Organization [facility] Address [address] [place] [address] Phone Care Team Providers Care Business Banking Relationship Manager Name Role Phone Liu Jerez MD Unavailable [phone] Albert Corbin MD Unavailable [phone] Justen Gale MD Primary Care Provider Khris Arthur MD Unavailable [phone] Ko Melendez MD Unavailable John Paul Moyer MD Unavailable Annel Rod MD Unavailable Anali MARSHALL MD, Carlos M. Unavailable [phone] Encounter Details Date Type Department Care Team [...] file Legal Sex Female 12:24 AM OUTREACH CLINICIAN Gender Identity Not on file Sexual Orientation [...] COVID: Recovered 02/10/2022 02/10/2022 06/10/2022 3:05 AM OUTREACH CLINICIAN Exposure, COVID-19 Comment:Added automatically based on COVID19 lab answers indicating exposure risk 02/11/2022 02/11/2022 02/15/2022 9:06 AM C DT COVID: Suspected 05/14/2022 05/14/2022 05/14/2022 10:41 AM OUTREACH CLINICIAN COVID: Suspected 06/07/2022 06/07/2022 06/07/2022 12:28 PM OUTREACH CLINICIAN COVID: Suspected 06/21/2022 06/21/2022 06/21/2022 2:12 AM OUTREACH CLINICIAN COVID: Suspected 10/05/2022 10/05/2022 10/05/2022 7:40 PM CDT COVID: Suspected 01/04/2024 01/04/2024 01/04/2024 10:30 PM CDT COVID: Suspected 02/14/2024 02/14/2024 02/15/2024 12:36 AM CDT COVID: Suspected 07/01/2024 07/01/2024 07/01/2024 2:53 PM CDT COVID: Suspected 07/01/2024 07/01/2024 07/02/2024 3:05 AM CDT documented as of this encounter Care Teams Business Banking Relationship Manager Relationship Specialty Start Date End Date Justen Gale MD [address] [facility] [address] [place] [address] PCP - General 10/09/17 Liu Jerez MD Consulting Physician Gastroenterology 07/28/17 [place] [address] [facility] [address] [place] [address] Consulting Physician Pulmonary Disease 08/03/17 [place] [address] [place] [address] [address] [place] [address] Medical Oncologist/Manager Operations Medical Oncology 10/23/17 [place] [address] [address] Surgeon Orthopedic Surgery 10/23/17 [place] [address] [facility] [address] [place] [address] Consulting Physician Pain Management 10/23/17 [place] [address] [address] Referring Physician General Surgery 01/26/18 [place] [address] [facility] [address] [place] [address] Consulting Physician Neurology 01/26/18 documented as of this encounter
--- OUTSIDE RECORDS SUMMARY | 2024-07-11 03:32 | XMS_ITS | Encounter Summary ---
Author Organization [facility] Address [address] [place] [address] Phone Care Team Providers Care Buoy Tender Name Role Phone Justen Gale MD Primary Care Provider [phone] David Roberts APRN, BACKHAUL DRIVER Unavailable [phone] Annel Rod MD Unavailable Reason for Visit * Reason Comments Medication Refill Encounter Details Date Type Department Care Team (Late st Contact Info) Description 02/07/2023 Refill [facility] - [facility] [address] [place] [address] Pili Elkins APRN, BACKHAUL DRIVER #[address] [address] Medication Refill Social History Tobacco [...] documented as of this encounter Care Teams Buoy Tender Relationship Specialty Start Date End Date Justen Gael MD #2 [facility] [address] [place] [address] PCP - General Family Medicine 10/17/17 David Roberts APRN, BACKHAUL DRIVER [address] [place] [address] Nurse Practitioner Advanced Practice Nurse 01/31/22 Annel Rod MD #2 [facility] [address] [place] [address] Consulting Physician Endocrinology 07/01/22 documented as of this encounter
--- OUTSIDE RECORDS SUMMARY | 2024-07-11 03:32 | XMS_ITS | Encounter Summary ---
Author Organization [facility] Address [address] [place] [address] Phone Care Team Providers Care Bottle Labeler Name Role Phone Justen Gale MD Primary Care Provider [phone] David Roberts APRN, PATIENT SERVICE COORDINATOR Unavailable [phone] Annel Rod MD Unavailable Reason for Visit * Reason Onset Date Comments Advice Only 11/21/2023 Encounter Details Date Type Department Care Team (Late st Contact Info) Description 11/21/2023 Telephone [facility] Call [facility] [address] [place] [address] Justen Gale MD #[address] [address] Advice Only Social History Tobacco Use Types [...] 11/21/2023 3:17 PM CDT RFC: Alejandra from [facility] is calling to state that patient is [...] documented as of this encounter Care Teams Bottle Labeler Relationship Specialty Start Date End Date Justen Gale MD #[address] [address] PCP - General Family Medicine 10/17/17 David Roberts APRN, NETTA #2 [place] [address] Nurse Practitioner Advanced Practice Nurse 01/31/22 Annel Rod MD #[address] [address] Consulting Physician Endocrinology 07/01/22 documented as of this encounter
--- OUTSIDE RECORDS SUMMARY | 2024-07-11 03:32 | XMS_ITS | Encounter Summary ---
Author Organization [facility] Address [address] [place] [address] Phone Care Team Providers Care Desizing Pad Operator Name Role Phone Justen Gale MD Primary Care Provider [phone] David Roberts APRN, LEAD INSPECTOR Unavailable [phone] Annel Rod MD Unavailable Reason for Visit * Reason Comments Medication Refill Encounter Details Date Type Department Care Team (Late st Contact Info) Description 02/07/2020 Refill [facility] Call Center [address] [place] [address] Justen Gale MD [address] [address] Medication Refill Social History Tobacco Use Types [...] documented as of this encounter Care Teams Desizing Pad Operator Relationship Specialty Start Date End Date Justen Gale MD #2 [facility] [address] [place] [address] PCP - General Family Medicine 10/17/17 David Roberts APRN, LEAD INSPECTOR #2 [place] [address] Nurse Practitioner Advanced Practice Nurse 01/31/22 Annel Rod MD #2 [facility] [address] [place] [address] Consulting Physician Endocrinology 07/01/22 documented as of this encounter
--- OUTSIDE RECORDS SUMMARY | 2024-07-11 03:32 | XMS_ITS | Clinical Summary ---
Author Organization [facility] Address Formerly [facility] [place] [address] Care Team Providers Care Dairy Feed Sales Consultant Name Role Phone Meena Bansal MD Unavailable [phone] Justen Gale MD Primary Care Provider [phone] Allergies Active Allergy Reactions Criticality Noted Date [...] tumor of breast ([facility]HCC [facility]) 08/22 Knee pain 09/05/2020 Other [...] 03/18/2018 Assessment & Plan (03/18/2018 2:55 AM TIRE CHANGER AIRCRAFT): Acute, patient reported as epigastric pain however may be atypical presentation. Troponins negative x2. Also in differential is GERD, PUD - Admit to observation -Follow-up troponins -Monitor vitals -N.p.o. at midnight - Stress echo in a.m. - Consider cardiology consult based on results of stress test -Begin Protonix Epigastric pain 03/18/2018 Assessment & Plan (03/18/2018 5:39 AM TIRE CHANGER AIRCRAFT): Acute, non radiating, worsens with lying down, [...] CVA (cerebral vascular accident) ([facility] HHS/ C) 01/24/2018 Neck pain on right side 12/01/2017 Anxiety and depression 11/12/2017 Chronic anticoagulation 11/09/2017 Constipation 11/09/2017 Uncontrolled type 2 diabetes mellitus with hyperglycemia, with long-term current use of insulin ([facility]) 11/06/2017 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 -continue exemestane Acute deep vein thrombosis ( DVT) of proximal vein of right lower extremity ([facility]) 10/17/2017 Dysuria 10/17/2017 Hyperthyroidism 10/17/2017 Cancer of overlapping sites of left female breast ([facility]) 10/13/2017 Syncope 09/29/2017 High blood pressure 08/22/2017 Overview (09/05/2020): Last Assessment & Plan: On lisinopril Last Assessment & Plan: On lisinopril Assessment & Plan (08/30/2018 9:57 PM CDT): Chronic. Controlled. -continue home medications Assessment & Plan (03/18/2018 2:51 AM TIRE CHANGER AIRCRAFT): Chronic, BPs currently 127/78 - To new home meds Morbid obesity with BMI of 50.0-59.9, adult 04/2017 Sepsis ([facility]) 08/22/2017 Type 2 diabetes mellitus ([facility]) 08/22 Overview (09/05/2020): Last Assessment & Plan: Hold janument. Start on SSI and accucheks Assessment & Plan (08/30/2018 10:01 PM CDT): Chronic. Controlled. -continue home insulin regimen of lantus 50 units q am -lispro 20 units with breakfast and lunch. 22 units with dinner. Assessment & Plan (03/18/2018 2:53 AM TIRE CHANGER AIRCRAFT): Chronic, patient reports medical compliance with 50 units of Lantus daily and 15 units of Humalog before meals. No recent HbA1c - Monitor POC glucose -Mcandrews home regimen - Consider sliding scale insulin -Follow-up HbA1c Bronchitis 08/20/2017 LUL (obstructive sleep apnea) 08/01/2017 Assessment & Plan (03/18/2018 2:54 AM TIRE CHANGER AIRCRAFT): Chronic, on CPAP at home - Continue home CPAP History of DVT (deep vein thrombosis) 08/01/2017 Assessment & Plan (03/18/2018 2:54 AM TIRE CHANGER AIRCRAFT): Chronic - Continue home Xarelto Chest pressure 08/01/2017 Diet-controlled diabetes mellitus ([facility] HHS/H CC) 08/01/2017 History of pulmonary embolism 08/01/2017 Hyponatremia 08/01/2017 Positive blood culture 08/01/2017 Acute pharyngitis 07/27/2017 Generalized weakness 07/27/2017 Nausea and vomiting 07/26/2017 Overview (09/05/2020): Overview: Overview: Added automatically from request for surgery [id number] Overview: Added automatically from request for surgery [id number] Added automatically from request for surgery [id number] Neuropathy 07/05/2017 History of breast cancer 02/06/2017 Pulmonary embolism ([facility]) 08/09/2016 Overview (09/05/2020): Last Assessment & Plan: [...] syndrome Assessment & Plan (03/18/2018 2:54 AM TIRE CHANGER AIRCRAFT): Chronic -Continue home ropinirole Pain of lower [...] Recorded In the past 12 months has [employer] gas, oil, or water [employer] threatened to shut off services in your [...] any time in the past 12 m [facility], were you homeless or living in a care home (including now)? No 10/13/2023 Comments No Sex and Gender Information Value Date Recorded Sex Assigned at Female 09/06/2020 12:50 AM CDT Legal Sex Female 10:47 AM CDT Gender Identity Female 09/06/2020 12:50 AM CDT Sexual Orientation Straight 03/18/2018 3: 01 AM TIRE CHANGER AIRCRAFT Last Filed Vital Signs Vital Sign Reading [...] 8.0(H) <5.7 % 10/14/2023 5:50 AM CDT [facility] Comment: ADA GUIDELINES 2010 5.7 TO 6.4% INCREASED RISK OF DIABETES > OR = 6.5% CONSISTENT WITH DIABETES ESTIMATED AVG GLUCOSE 183 mg/dL 10/14/2023 5:50 AM CDT [facility] 10/14/2023 3:40 AM CDT us Peggy Bland MD LABORATORY Final Result [facility] [address] [place] [address], * LIPID PANEL (10/14/2023 3:40 AM CDT) CHOLESTEROL 164 <200 MG/DL 10/14/2023 4:31 AM CDT [facility] TRIGLYCERIDES 114 <150 MG/DL 10/14/2023 4:31 AM CDT [facility] HDL 46 >40.0 MG/DL 10/14/2023 4:31 AM CDT [facility] LDL (CALCULATED) 95 <100 MG/DL 10/14/19 4:31 AM CDT [facility] NON HDL CHOLESTEROL 118 <130 MG/DL 10/13 4:31 AM CDT [facility] CHOL/HDL RATIO 3.6 0.0 - 4.5 10/14/2023 4:31 AM CDT [facility] VLDL CALCULATION 23 5 - 55 MG/DL 10/14/2023 4:31 AM T [facility] LIPID INTERPRETATION 10/14/2023 4:31 AM T [facility] Comment: NIH CONCENSUS REPORT RECOMMENDATIONS: ADULT CHILD LOW RISK: CHOLESTEROL <200 <170 TRIGLYCERIDE <150 --- HDL >=60 --- LDL <100 <110 BORDERLINE: CHOLESTEROL 200-239 170-199 TRIGLYCERIDE 150-199 --- HDL 40-59 --- LDL 100-159 110-129 HIGH RISK: CHOLESTEROL >=240 >=200 TRIGLYCERIDE >=200 --- HDL <40 --- LDL >=160 >=130 10/14/2023 3:40 AM CDT Peggy Bland MD LABORATORY Final Result [facility] [address] [place] [address], from Last 3 Months or Most Recently Relevant to Health Maintenance Insurance [facility] MEDICAID MEDICAID [facility] Advance Directives * Full Code (Latest Code [...] 2:42 AM 03/18/2018 4:50 PM Care Teams Dairy Feed Sales Consultant Relationship Specialty Start Date End Date Justen Gale MD [address] [address] [place] [address] PCP - General FAMILY PRACTICE 08/20/17 Meena Bansal MD [address] [place] [place], [place] [address] [place] Needle Loom Setter CARDIOVASCULAR DISEASE 04/24/16
--- OUTSIDE RECORDS SUMMARY | 2024-07-11 03:32 | XMS_ITS | Encounter Summary ---
Author Organization [facility] Address [address] [place] [address] Phone Care Team Providers Care Licensed Nuclear Operator Name Role Phone Justen Gale MD Primary Care Provider [phone] David Roberts APRN, TOOL DISPATCHER Unavailable [phone] Annel Rod MD Unavailable Reason for Visit * Reason Onset Date Comments Toe Problem 07/11/2024 Encounter Details Date Type Department Care Team (Late st Contact Info) Description 07/11/2024 Nurse Triage [facility] Call [facility] [address] [place] [address] Justen Gale MD #[address] [address] Toe Problem Social History Tobacco Use Types [...] documented as of this encounter Care Teams Licensed Nuclear Operator Relationship Specialty Start Date End Date Justen Gale MD #2 [facility] [address] [place] [address] PCP - General Family Medicine 10/17/17 David Roberts APRN, TOOL DISPATCHER #2 [place] [address] Nurse Practitioner Advanced Practice Nurse 01/31/22 Annel Rod MD #2 [facility] [address] [place] [address] Consulting Physician Endocrinology 07/01/22 documented as of this encounter
--- OUTSIDE RECORDS SUMMARY | 2024-07-11 03:32 | XMS_ITS | Encounter Summary ---
Author Organization [facility] Address [address] [place] [address] Phone Care Team Providers Care Contact Centre Supervisor Name Role Phone Lavonne Hathaway MD Primary Care Provider + [phone] Liu Jerez MD Unavailable [phone] Albert Corbin MD Unavailable [phone] Justen Gale MD Primary Care Provider [phone] Lavonne Hathaway MD Primary Care Provider [phone] Justen Gale MD Primary Care Provider [phone] Khris Arthur MD Unavailable + [phone] Ko Melendez MD Unavailable [phone] John Paul Moyer MD Unavailable [phone] Annel Rod MD Unavailable Anali MARSHALL MD, Carlos M. Unavailable [phone] Encounter Details Date Type Department Care Team ([facility] Contact Info) Description 05/15/2017 Orders Only [facility] Scanning, Provider Social History Tobacco Use Types Packs/Day Years Used Date Smoking Tobacco: Former Alcohol Use Standard Drinks/Week Comments No 0 (1 standard drink = 0.6 oz pur e alcohol) Comments Unknown Sex and Gender Information Value Date Recorded Sex Assigned at Not on file Legal Sex Female 12:24 AM THERMOFORMING MACHINE OPERATOR Gender Identity Not on file [...] COVID: Recovered 02/10/2022 02/10/2022 06/10/2022 3:05 AM THERMOFORMING MACHINE OPERATOR Exposure, COVID-19 Comment:Added automatically based on COVID19 lab answers indicating exposure risk 02/11/2022 02/11/2022 02/15/2022 9:06 AM C DT COVID: Suspected 05/14/2022 05/14/2022 05/14/2022 10:41 AM THERMOFORMING MACHINE OPERATOR COVID: Suspected 06/07/2022 06/07/2022 06/07/2022 12:28 PM THERMOFORMING MACHINE OPERATOR COVID: Suspected 06/21/2022 06/21/2022 06/21/2022 2:12 AM THERMOFORMING MACHINE OPERATOR COVID: Suspected 10/05/2022 10/05/2022 10/05/2022 7:40 PM CDT COVID: Suspected 01/04/2024 01/04/2024 01/04/2024 10:30 PM CDT COVID: Suspected 02/14/2024 02/14/2024 02/15/2024 12:36 AM CDT COVID: Suspected 07/01/2024 07/01/2024 07/01/2024 2:53 PM CDT COVID: Suspected 07/01/2024 07/01/2024 07/02/2024 3:05 AM CDT documented as of this encounter Care Teams Contact Centre Supervisor Relationship Specialty Start Date End Date Lavonne Hathaway MD [address] [place] [address] [place] [address] PCP - General 08/16/16 08/17/17 Justen Gale MD [address] [facility] [address] [address] PCP - General 08/18/17 08/22/17 Lavonne Hathaway MD [address] [place] [address] [place] [address] PCP - General Family Medicine 08/23/17 10/08/17 Justen Gale MD 2 [facility] [place] [address] PCP - General 10/09/17 Liu Jerez MD [address] [place] [address] [place] [address] Consulting Physician Gastroenterology 07/28/[address] [place] [address] [facility] [address] [place] [address] Consulting Physician Pulmonary Disease 08/03/17 Khris Arthur MD [address] [facility] [address] [place] [address] Medical Oncologist/Transportation Manager Medical Oncology 10/23/[address] [place] [address] [facility] [address] [place] [address] Surgeon Orthopedic Surgery 10/23/17 [place] [address] [facility] [address] [place] [address] Consulting Physician Pain Management 10/23/[address] [place] [address] [facility] [address] [place] [address] Referring Physician General Surgery 01/26/18 [place] [address] [facility] [address] [place] [address] Consulting Physician Neurology 01/26/18 documented as of this encounter
--- OUTSIDE RECORDS SUMMARY | 2024-07-11 03:32 | XMS_ITS | Encounter Summary ---
Author Organization [facility] Address [address] [place] [address] Phone Care Team Providers Care Barrel Raiser Helper Name Role Phone Justen Gale MD Primary Care Provider [phone] David Roberts APRN, CHILDREN'S ENTERTAINER Unavailable [phone] Annel Rod MD Unavailable Reason for Visit * Reason Comments Medication Refill Encounter Details Date Type Department Care Team (Late st Contact Info) Description 02/07/2023 Refill [facility] - Family Medicine [facility] [address] [place] [address] Catrina Quiñonez MD #2 [place] [address] Medication Refill Social History Tobacco Use Types [...] Mcgee 05/02/22 Office Visit Justen Gale MD [facility] [place] 03/03/22 Office Visit Pili Elkins APRN, NETTA [facility] [place] Showing recent visits within past 365 [...] documented as of this encounter Care Teams Barrel Raiser Helper Relationship Specialty Start Date End Date Justen Gale MD #[address] [address] PCP - General Family Medicine 10/17/17 David Roberts APRN, CHILDREN'S ENTERTAINER #2 [place] [address] Nurse Practitioner Advanced Practice Nurse 01/31/22 Annel Rod MD #[address] [address] Consulting Physician Endocrinology 07/01/22 documented as of this encounter
--- OUTSIDE RECORDS SUMMARY | 2024-07-11 03:32 | XMS_ITS | Encounter Summary ---
Author Organization [facility] Address [address] [place] [address] Phone Care Team Providers Care Small Animal Caretaker Name Role Phone Justen Gale MD Primary Care Provider [phone] David Roberts APRN, TELEPHONE ENGINEER Unavailable [phone] Annel Rod MD Unavailable Reason for Visit * Reason Comments Medication Refill Encounter Details Date Type Department Care Team (Late st Contact Info) Description 07/14/2022 Refill [facility] - Family Medicine [facility] #[address] [place] [address] Justen Gale MD #[address] [address] Medication Refill Social History Tobacco Use Types [...] documented as of this encounter Care Teams Small Animal Caretaker Relationship Specialty Start Date End Date Justen Gale MD #2 [facility] [address] [place] [address] PCP - General Family Medicine 10/17/17 David Roberts APRN, TELEPHONE ENGINEER #2 [place] [address] Nurse Practitioner Advanced Practice Nurse 01/31/22 Annel Rod MD #2 [facility] [address] [place] [address] Consulting Physician Endocrinology 07/01/22 documented as of this encounter
--- OUTSIDE RECORDS SUMMARY | 2024-07-11 03:32 | XMS_ITS | Encounter Summary ---
Author Organization [facility] Address [address] [place] [address] Phone Care Team Providers Care Capping Machine Operator Name Role Phone Justen Gale MD Primary Care Provider [phone] David Roberts APRN, ORTHOPEDIC PHYSICIAN Unavailable [phone] Annel Rod MD Unavailable Reason for Visit * Reason Comments Medication Refill Encounter Details Date Type Department Care Team (Late st Contact Info) Description 08/30/2022 Refill [facility] - Family Medicine [facility] #[address] [place] [address] Justen Gale MD #[address] [address] Medication Refill Social History Tobacco Use Types [...] 07/05/22 Office Visit Pili Elkins APRN, NETTA [facility] [place] 05/02/22 Office Visit Justen Gale MD [facility] [place] 03/03/22 Office Visit Pili Elkins APRN, NETTA [facility] 01/03/22 Office Visit Dannielle Berg PAC [facility] [place] 12/07/21 Office Visit Pili Elkins APRN, NETTA [facility] 11/09/21 Office Visit Pili Elkins APRN, NETTA [facility] [place] 10/08/21 Office Visit Angelito Alegria APRN, CNP [facility] [place] 08/30/21 Office Visit Justen Gale MD [facility] Showing recent visits within past 365 days [...] documented as of this encounter Care Teams Capping Machine Operator Relationship Specialty Start Date End Date Justen Gale MD #[address] [address] PCP - General Family Medicine 10/17/17 David Roberts APRN, ORTHOPEDIC PHYSICIAN #2 [place] [address] Nurse Practitioner Advanced Practice Nurse 01/31/22 Annel Rod MD #[address] [id number] Consulting Physician Endocrinology 07/01/22 documented as of this encounter
--- OUTSIDE RECORDS SUMMARY | 2024-07-11 03:32 | XMS_ITS | Encounter Summary ---
Author Organization [facility] Address [address] [place] [address] Phone Care Team Providers Care Meal Cooker Name Role Phone Justen Gale MD Primary Care Provider [phone] David Roberts APRN, DUST SAMPLER Unavailable [phone] Annel Rod MD Unavailable Reason for Visit * Reason Comments Medication Refill Encounter Details Date Type Department Care Team (Late st Contact Info) Description 02/17/2021 Refill [facility] - Family [facility] #2 [place] [id number] Justen Gale MD #[address] [address] Medication Refill Social History Tobacco Use Types [...] 06/05/20 Office Visit [facility]ili Elkins APRN, [facility] [place] Showing recent visits within past 365 days and meeting all other requirements Future Appointments Date Type Provider Dept 03/02/21 Appointment Vince Hermosillo MD [facility] Showing future appointments within next 90 days and meeting all other requirements documented in this encounter Plan of Treatment Not on file documented as of this encounter Visit Diagnoses Not on filedocumented in this encounter Additional Health Concerns Assessment Noted Time PHQ-9 Depression Total Score: 0 07/21/19 21 3:00 PM CDT documented as of this encounter Care Teams Meal Cooker Relationship Specialty Start Date End Date Justen Gale MD #2 [facility] [address] [place] [address] PCP - General Family Medicine 10/17/17 David Roberts APRN, NETTA #2 [place] [address] Nurse Practitioner Advanced Practice Nurse 01/31/22 Annel Rod MD #2 [facility] [address] [place] [address] Consulting Physician Endocrinology 07/01/22 documented as of this encounter
[2024-07-11 03:36] LABS: Alanine Aminotransferase 26 U/L (6-35); Albumin Level 4.2 g/dL (3.5-5.1); Alkaline Phosphatase 72 U/L (38-126); Anion Gap 10 mmol/L (4-12); Aspartate Amino Transferase 26 U/L (14-36); Bilirubin,Total 0.5 mg/dL (0.2-1.3); Blood Urea Nitrogen 18 mg/dL (7-17); Calcium 9.6 mg/dL (8.4-10.2); Carbon Dioxide 26 mmol/L (22-30); Chloride 103 mmol/L (98-107); Estimated Glomerular Filt Rate > 60; Glucose 171 mg/dL (65-110); Potassium 3.9 mmol/L (3.4-5.0); Sodium 139 mmol/L (137-145); Uric Acid 4.5 mg/dL (2.5-7.5)
[2024-07-11 03:42] VITALS: BP 152/84; PULSE 70; RESP 15; O2SAT 99
[2024-07-11 03:42] LABS: Add Urine Microscopic? NO; Appearance Urine Clear (Clear); Bilirubin Urine Negative (Negative); Blood Urine Negative (Negative); Color Urine Yellow (Yellow); Glucose Urine UA 1+ mg/dL (Negative); Ketones Urine Negative (Negative); Leukocyte Esterase Ur Negative LEU/UL (Negative); Nitrate Urine Negative (Negative); Protein Urine Negative (Negative); Specific Grav Ur 1.024 (1.001-1.035); Urobilinogen Urine 0.2 mg/dL (<2.0)
--- NOTE | 2024-07-11 03:47 | ED_ITS ---
HPI - General Adult General Chief complaint: Extremity Injury, Lower Stated complaint: i think i have infection in my foot Time Seen by Provider: 07/11/24 03:03 History of Present Illness HPI narrative: Patient is a 69-year-old female who presents emergency department with chief complaint of left 5th toe pain patient reports that she was seen in urgent care was started on medications reports she has continued to have pain the patient states that she has had no fever reports no trauma to the area reports they did x-rays on it the patient reports she is compliant with her blood thinners Related Data Home Medications ?Medication ?Instructions ?Recorded ?Confirmed ?Last Taken ?Type exemestane 25 mg tablet 25 mg PO HS 01/06/20 06/20/24 12/04/23 22:00 History insulin glargine 100 unit/mL (3 32 unit subcut QAM 01/06/20 06/20/24 12/04/23 11:00 History mL) subcutaneous pen (Lantus Solostar U-100 Insulin) ropinirole 5 mg tablet 5 mg PO HS 01/06/20 06/20/24 12/04/23 22:00 History insulin lispro 100 unit/mL 28 unit subcut TID 03/19/22 06/20/24 Unknown History subcutaneous pen (Humalog KwikPen (U-100) Insulin) oxybutynin chloride 15 mg 15 mg PO DAILY 11/06/22 06/20/24 12/04/23 11:00 History tablet,extended release 24 hr gabapentin 300 mg capsule 300 mg PO TID 06/25/23 06/20/24 12/04/23 22:00 History Allergies Allergy/AdvReac Type Severity Reaction Status Date / Time ceftriaxone Allergy Severe SOB Verified 07/10/24 14:53 cephalexin Allergy Severe Difficulty Verified 07/10/24 14:53 Breathing Cephalosporins Allergy Severe Difficulty Verified 07/10/24 14:53 Breathing lorazepam Allergy Severe Swelling Verified 07/10/24 14:53 trazodone Allergy Severe Swelling Verified 07/10/24 14:53 of Lip/Tongue/Throat metoclopramide Allergy Intermediate Other Verified 07/10/24 14:53 chlorhexidine Allergy Mild BLISTERING Verified 07/10/24 14:53 levofloxacin Allergy Mild Hives / Verified 07/10/24 14:53 Red Face ketorolac Allergy Itching Verified 07/10/24 14:53 latex Allergy Rash Verified 07/10/24 14:53 meropenem Allergy Rash Verified 07/10/24 14:53 nitrofurantoin Allergy Itching Verified 07/10/24 14:53 sulfamethoxazole (From Allergy Itching Verified 07/10/24 14:53 Sulfamethoxazole-Trimethoprim) trimethoprim (From Allergy Itching Verified 07/10/24 14:53 Sulfamethoxazole-Trimethoprim) oxycodone AdvReac Mild Vomiting Verified 07/10/24 14:53 amlodipine AdvReac Swelling Verified 07/10/24 14:53 lisinopril AdvReac Swelling Verified 07/10/24 14:53 pregabalin AdvReac Swelling Verified 07/10/24 14:53 reslizumab AdvReac Unknown Verified 07/10/24 14:53 Review of Systems 2 Review of Systems: A 10 system review of systems was completed on the patient and is negative except for what is stated in the HPI. Nursing and ancillary documentation was reviewed. FOR[facility]LY [facility], [facility] Past Medical History Medical History Chronic anticoagulation Overactive bladder Type 2 diabetes mellitus Deep venous thrombosis Irritable bowel syndrome Restless leg syndrome Obstructive sleep apnea on CPAP Congestive heart failure Chronic back pain COVID-19 Collagenous colitis Morbid obesity Breast cancer Depression Anxiety Peripheral neuropathy Kidney stone Pulmonary embolism positive for coagulation workup Multiple thyroid nodules Surgical History Surgical History History of umbilical hernia repair History of colonoscopy Status post insertion of spinal cord stimulator History of cystoscopy History of ureter stent History of cholecystectomy History of bilateral mastectomy History of esophagogastroduodenoscopy (EGD) History of right oophorectomy History of total right knee replacement History of cardiac catheterization Reportedly negative for coronary artery disease. Family History Family History Mother Diabetes mellitus Acute myocardial infarction Cerebrovascular accident Hypertension Congestive heart failure Father Prostate carcinoma Sibling Breast cancer Acute myocardial infarction Chronic obstructive pulmonary disease Social History Social History Social History: Surrogate medical decision maker: Jimmie Marques, spouse. Code status: Full code. Smoking packs per day: 0 Smoking cigarettes per day: 0.0 Years smoked: 2 Smoking pack-years: 0.00 Smoking status: Former smoker Second hand tobacco smoke exposure: Yes Alcohol intake: never Substance use: never Substance use type: does not use Do You Feel Safe in your Home?: Yes Lack of Transportation: No Lack of Food: Never True Current Housing: I Have Housing Concerned About Future Housing: No Difficulty Paying Gas/Electric Bills: No Difficulty Paying for Meds: No Currently Unemployed: No Education: Decline to Answer Difficulty w/ Childcare or Family Care: No Living arrangements: with family Additional occupation/education comments: Disabled. Spiritual care concerns: No Exam 2 Narrative: GENERAL: Well-appearing, well-nourished, and in no acute distress. HEAD: Normocephalic, atraumatic. EYES: PERRLA and EOMI. ENT: Nares clear, no rhinorrhea or epistaxis. Mucous membranes moist. NECK: Supple. CHEST: Clear to auscultation. No respiratory distress. HEART: Regular rate and rhythm. No murmur heard. Normal peripheral pulses. ABDOMEN: Soft, nontender, nondistended, normal active bowel sounds. EXTREMITIES: Normal range of motion. No edema. SKIN: Warm, dry, no rash. Slight redness of the left 5th toe no ulceration present no laceration present no purulent drainage no crepitance no subcu emphysema NEURO: No focal deficits. Alert and oriented x3. PSYCH: Normal mood and affect. Course Vital Signs Vital signs: Vital Signs Temperature 36.6 C 07/11/24 00:58 Pulse Rate 83 07/11/24 00:58 Respiratory Rate 18 07/11/24 00:58 Blood Pressure 131/55 L 07/11/24 00:58 Pulse Oximetry 99 07/11/24 00:58 Temperature 36.6 C 07/11/24 00:58 Pulse Rate 70 07/11/24 03:42 Respiratory Rate 15 07/11/24 03:42 Blood Pressure 152/84 H 07/11/24 03:42 Pulse Oximetry 99 07/11/24 03:42 Medical Decision Making MDM Narrative Medical decision making narrative: Differential diagnosis includes gouty arthropathy, cellulitis, contusion, X-rays were reviewed from patient's visit to urgent care that showed no evidence of fracture the patient is currently on clindamycin and a Medrol Dosepak. The patient will be given a short course of additional pain control and should follow up with her primary care provider patient be placed in a postop shoe Vital Signs Vital Signs: Vital Signs Temperature 36.6 C 07/11/24 00:58 Pulse Rate 83 07/11/24 00:58 Respiratory Rate 18 07/11/24 00:58 Blood Pressure 131/55 L 07/11/24 00:58 Pulse Oximetry 99 07/11/24 00:58 Temperature 36.6 C 07/11/24 00:58 Pulse Rate 70 07/11/24 03:42 Respiratory Rate 15 07/11/24 03:42 Blood Pressure 152/84 H 07/11/24 03:42 Pulse Oximetry 99 07/11/24 03:42 Lab Data 07/11/24 03:14 07/11/24 03:14 Labs: Lab Results 07/11/24 07/11/24 Range/Units 03:14 03:37 WBC 9.0 (4.5-10.0) K/mm3 RBC 4.50 (4.2-5.4) M/mm3 Hgb 13.2 (12.0-15.0) g/dL Hct 41.2 (37.0-47.0) % MCV 91.6 (80-100) fl MCH 29.3 (26-34) pg MCHC 32.0 (32-36) g/dl RDW 13.3 (11.5-14.5) % Plt Count 217 (150-375) k/mm3 MPV 9.7 (7.4-10.4) fl Immature Gran % (Auto) 0.3 (0-0.5) % Neut % (Auto) 60.6 (45.5-73.1) % Lymph % (Auto) 24.9 (18.3-44.2) % [place]key % (Auto) 11.3 H (2.6-8.5) % Eos % (Auto) 2.6 (0-4.4) % Baso % (Auto) 0.3 (0.2-1.2) % Lymph # (Auto) 2.24 (0.9-3.2) K/mm3 D[place]key # (Auto) 1.0 H (0.1-0.6) K/mm3 Eos # (Auto) 0.2 (0-0.3) K/mm3 Baso # (Auto) 0.0 (0.0-0.1) K/mm3 Abs Immat Gran (auto) 0.03 (0.00-0.031) K/mm3 Absolute Neuts (auto) 5.5 (1.3-6.7) K/mm3 Absolute Nucleated RBC 0.000 (0.0-0.012) K/mm3 Nucleated RBC % 0.0 (0.0-0.2) % Sodium 139 (137-145) mmol/L Potassium 3.9 (3.4-5.0) mmol/L Chloride 103 (98-107) mmol/L Carbon Dioxide 26 (22-30) mmol/L Anion Gap 10 (4-12) mmol/L BUN 18 H (7-17) mg/dL Creatinine 0.72 (0.7-1.0) mg/dL Estim Creat Clear Calc Not Reportable Estimated GFR > 60 (59 - ) Glucose 171 H (65-110) mg/dL Uric Acid 4.5 (2.5-7.5) mg/dL Calcium 9.6 (8.4-10.2) mg/dL Total Bilirubin 0.5 (0.2-1.3) mg/dL AST 26 (14-36) U/L ALT 26 (6-35) U/L Alkaline Phosphatase 72 (38-126) U/L Total Protein 8.0 (6.3-8.2) g/dL Albumin 4.2 (3.5-5.1) g/dL Urine Color Pending Urine Appearance Pending Urine pH Pending Ur Specific [place] Pending Urine Protein Pending Urine Glucose (UA) Pending Urine Ketones Pending Ur Blood (Man) Pending Urine Nitrate Pending Urine Bilirubin Pending Urine Urobilinogen Pending Leukocyte Esterase Rfl Pending Discharge Plan Discharge Clinical Impression: Arthralgia of toe of left foot Patient Disposition: Home, Self-Care Condition: Stable Instructions: Antibiotic Form, Gout (ED), Arthralgia (ED) Patient Language: Guamanian Prescriptions: No Action gabapentin 300 mg capsule 300 mg PO TID cyclobenzaprine 10 mg tablet 10 mg PO TID PRN (Reason: muscle spasm) Qty: 20 0RF Rx Instructions: no driving or alcohol while taking this medication clindamycin HCl [Cleocin HCl] 300 mg capsule 300 mg PO Q8H 7 Days Qty: 21 0RF methylprednisolone [Medrol ([place])] 4 mg tablets,dose pack See Rx Instructions .ROUTE .COMPLEX Qty: 21 0RF Rx Instructions: orally per package directions exemestane 25 mg tablet 25 mg PO HS ropinirole 5 mg tablet 5 mg PO HS insulin glargine [Lantus Solostar U-100 Insulin] 100 unit/mL (3 mL) insulin pen 32 unit SUBCUT QAM insulin lispro [Humalog KwikPen Insulin] 100 unit/mL insulin pen 28 unit SUBCUT TID albuterol sulfate 90 mcg/actuation HFA aerosol inhaler 1 inh inhalation QID PRN (Reason: shortness of breath or wheezing) Qty: 6.7 0RF oxybutynin chloride 15 mg tablet extended release 24hr 15 mg PO DAILY acetaminophen 325 mg Tablet 650 mg PO Q6H PRN (Reason: Pain 1-5 or Fever) Qty: 30 0RF Xarelto 20 mg tablet 20 mg PO 1700 Qty: 30 0RF hydrocodone-acetaminophen 10-325 mg tablet 1 tablet PO Q6H PRN (Reason: pain (scale score 7-10)) Qty: 10 0RF Follow-up/Referrals: Shahla,Justen Spicer MD [Primary Care Provider] -
[2024-07-11 04:26] VITALS: BP 148/90; PULSE 75; RESP 15; O2SAT 100
== END 2024-07-11 04:27 | disposition home or self-care (01) ==
PROVIDERS: Emergency Provider Emergency Medicine; PCP Internal Medicine
DX: M79.675 Pain in left toe(s) (principal); E11.42 Type 2 diabetes mellitus with diabetic polyneuropathy; Z79.4 Long term (current) use of insulin; Z79.01 Long term (current) use of anticoagulants; Z86.718 Personal history of other venous thrombosis and embolism; G47.33 Obstructive sleep apnea (adult) (pediatric); Z99.89 Dependence on other enabling machines and devices; I50.9 Heart failure, unspecified; Z85.3 Personal history of malignant neoplasm of breast; Z96.651 Presence of right artificial knee joint; Z87.891 Personal history of nicotine dependence
CPT/HCPCS: 36415; 80053; 81003; 84550; 85025; 99283; A9270

== ENCOUNTER 2024-07-21 21:46 | Emergency (ER) | payer MEDICARE, MEDICAID, SELFPAY ==
--- NOTE | ~2024-07-21 | CT_ITS ---
CT Scan of the Chest without Contrast: Clinical Indication: Flulike symptoms Technique: Contiguous sections were acquired throughout the chest without intravenous contrast. Dose reduction technique was used on this scan by utilizing automated exposure control and iterative recon struction technique. The dose-length product (DLP) was 877.03 mGy-cm. COMPARISON: 06/22/2023 Findings: There is no evidence of any significant mediastinal, hilar or axillary lymphadenopathy. The mediastin al soft tissues appear normal. There is no evidence of pleural or pericardial effusion. Stable minimal peripheral scarring or possibly postradiation change at the lingula. Lungs are otherwi se clear. Images through the upper abdomen reveal no abnormalities. Impression: No acute abnormalities seen. Stable minimal peripheral scarring or possibly postradiation change at t he lingula. Reviewed, dictated and finalized at [facility]. Impression: No acute abnormalities seen. Stable minimal peripheral scarring or possibly pos tradiation change at the lingula.
--- NOTE | ~2024-07-21 | XR_ITS ---
Portable chest x-ray Comparison: 05/15/2024 Clinical History: Shortness of breath Findings: Lungs are clear, without focal consolidation or pleural effusion. Cardiomediastinal silho uette is stable. Bones and soft tissues are unremarkable. Impression: Clear lungs. Reviewed, dictated and finalized at location . Impression: Clear lungs.
--- OUTSIDE RECORDS SUMMARY | 2024-07-21 21:49 | XMS_ITS | Encounter Summary ---
Author Organization [facility] Address [address] [place] [address] Phone Care Team Providers Care Wallpaperer Helper Name Role Phone Justen Gale MD Primary Care Provider [phone] David Roberts APRN, FOOD AND BEVERAGE COORDINATOR Unavailable [phone] Annel Rod MD Unavailable Reason for Visit * Reason Onset Date Comments Sore Throat 06/29/2020 Encounter Details Date Type Department Care Team (Late st Contact Info) Description 06/29/2020 Telephone [facility] [address] [place] [address] Justen Gale MD [id number] [address] Sore Throat Social History Tobacco Use Types [...] COVID-19? No / Unsure 06/29/2020 8:43 AM WHOLESALE REPRESENTATIVE documented as of this encounter Miscellaneous Notes * Telephone Encounter - Gail Lucero RN - 06/29/2020 3:53 PM CST Attempted to call mailbox is full. Pt does not need testing ESALE REPRESENTATIVE * Telephone Encounter - Vince Hermosillo MD - 06/29/2020 3:13 PM CST No covid testing needed. If the er thought that it was warranted then they would have done this. ESALE REPRESENTATIVE * Telephone Encounter - Marlys Sorensen RN - 06/29/2020 8:36 AM CST Patient calling. Patient is calling to schedule Hospital/ED/Prompt-Care follow up appointment. Hospital/ED/Prompt-Care Site: [facility] ED Records Requested: Yes Reason for [...] f/up and yearly PAP appointments? Please advise. ESALE REPRESENTATIVE documented in this encounter Plan of Treatment Not on file documented as of this encounter Visit Diagnoses Not on filedocumented in this encounter Additional Health Concerns Assessment Noted Time PHQ-9 Depression Total Score: 0 09/08/19 19 1:00 PM CDT documented as of this encounter Care Teams Wallpaperer Helper Relationship Specialty Start Date End Date Justen Gale MD [address] [address] PCP - General Family Medicine 10/17/17 David Roberts APRN, FOOD AND BEVERAGE COORDINATOR [address] [place] [address] Nurse Practitioner Advanced Practice Nurse 01/31/22 Annel Rod MD [address] [address] Consulting Physician Endocrinology 07/01/22 documented as of this encounter
--- OUTSIDE RECORDS SUMMARY | 2024-07-21 21:50 | XMS_ITS | Clinical Summary ---
Author Organization [facility] Address [address] [place] [id number] Care Team Providers Care Blood Bank Booking Clerk Name Role Phone Liu Jerez MD Unavailable [phone] Albert Corbin MD Unavailable [phone] Justen Gale MD Primary Care Provider Khris Arthur MD Unavailable [phone] Ko Melendez MD Unavailable [phone] John Paul Moyer MD Unavailable Annel Rod [...] 05/22/2024 Assessment & Plan (05/26/2024 10:08 AM FIRE CONTROL MECHANIC): Presenting with urinary symptoms of right flank [...] 05/22/2024 Assessment & Plan (05/25/2024 7:52 AM FIRE CONTROL MECHANIC): Hx of breast cancer c/b DVT/bilateral Pes [...] 05/22/2024 Assessment & Plan (05/22/2024 1:14 PM FIRE CONTROL MECHANIC): -long-standing chronic back pain -CT L spine [...] 09/12/2021 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) 2021 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) use 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 inhibitors 10/17/2019 Thyroid [...] without long-term current use of insulin ([facility]) 10/23/2017 Assessment & Plan (10/23/2017 [...] 10/13/2017 Assessment & Plan (05/22/2024 12:29 PM FIRE CONTROL MECHANIC): -Hx stage II, ER positive, HER2 negative [...] 08/01/2017 Assessment & Plan (05/22/2024 12:33 PM FIRE CONTROL MECHANIC): -Hx LUL -Hospital provided CPAP ordered History of DVT (deep vein thrombosis) 08/01/2017 History of pulmonary embolism 08/01/2017 Generalized weakness 07/27/2017 Dyspnea 07/27/2017 Unintentional weight loss 07/27/2017 Acute cystitis without hematuria 07/27/2017 Nausea and vomiting 07/26/2017 Overview (07/28/2017): Added automatically from request for surgery [id number] Pulmonary embolism 08/09/2016 Assessment & Plan (10/23/2017 2:05 AM CDT): On Rivaroxaban Lymphedema of left upper extremity 08/09/2016 Assessment & Plan (05/25/2024 7:53 AM FIRE CONTROL MECHANIC): S/p L axillary lymph node dissection 2014, [...] syndrome Assessment & Plan (05/22/2024 11:18 AM FIRE CONTROL MECHANIC): -continue home Requip 5mg nightly Pain of lower extremity 03/12/2013 Overview (07/29/2016): Leg pain Essential hypertension Assessment & Plan (05/23/2024 10:42 AM FIRE CONTROL MECHANIC): -Chart history of HTN but not on meds -BP elevated on admission, likely some pain contributing -Monitor closely once pain under adequate control, discussed following up with PCP for this Chronic anticoagulation Restless leg syndrome 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 Type 2 diabetes mellitus without complication Assessment & Plan (05/24/2024 1:39 PM FIRE CONTROL MECHANIC): -Last Ha1c 8.4 in 2023, repeat 8.7 [...] CDT - 07/01/2024 10:18 PM CDT Emergency [facility] [place], [place] [address] Myalgia (Primary Dx); Viral syndrome Discharge Disposition: Discharge to home or self care 05/30/2024 Orders Only [facility] [address] [facility] Floor [address] [place] [address] Radha Mcgrath RN Lymphedema of left arm (Primary Dx); Malignant neoplasm of upper-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, unspecified estrogen receptor status (HCC); Malignant neoplasm of overlapping sites of left female breast, unspecified estrogen receptor status (HCC); Malignant neoplasm of female breast, unspecified estrogen receptor status, unspecified laterality, unspecified site of breast (HCC) 05/24/2024 Telephone [facility] [address] [place] [address] Radha Warner RN 05/23/2024 8:10 AM FIRE CONTROL MECHANIC Ancillary Procedure [facility] [address] [place] [address] 05/21/2024 9:12 PM FIRE CONTROL MECHANIC - 05/26/2024 6:45 PM FIRE CONTROL MECHANIC Hospital Encounter [facility] [address] [place] [address] Jimmie Zavala MD Liss, MD Ra Parnell, MD Sebastian Claros Rehan, MD Left arm pain (Primary Dx); Left leg pain; Shortness of breath; Urinary tract infection without hematuria, site unspecified; Allergy to drug Discharge Disposition: Discharge to home or self care 05/21/2024 12:58 PM FIRE CONTROL MECHANIC - 05/21/2024 11:59 PM FIRE CONTROL MECHANIC Hospital Encounter [facility] [address] [place] [address] Discharge Disposition: Discharge to home or self care 05/21/2024 11:00 AM FIRE CONTROL MECHANIC - 05/21/2024 11:59 PM FIRE CONTROL MECHANIC Hospital Encounter [facility] - Breast [facility] Floor [address] [place] [address] History of breast cancer; Axillary pain, left Discharge Disposition: Discharge to home or self care 05/16/2024 Telephone [facility] [address] [place] [address] 8 [place] [phone] Jeanine Ba, Cordelia 05/16/2024 Orders Only [facility] [address] [place] [address] 8 [place] [phone] Radha Mcgrath RN History of breast cancer (Primary Dx); Axillary pain, left 05/16/2024 Orders Only [facility] [address] [place] [address] 8 [place] [phone] Khris Arthur MD Swelling of left upper extremity (Primary Dx); Swelling of left lower extremity 05/14/2024 4:45 PM FIRE CONTROL MECHANIC Lab [facility] - Lab Collection [facility] Floor [address] [place] [address] Malignant neoplasm of upper-inner quadrant of left breast in female, estrogen receptor positive (HCC) 05/14/2024 4:36 PM FIRE CONTROL MECHANIC - 05/14/2024 11:59 PM FIRE CONTROL MECHANIC Hospital Encounter [facility] [address] [facility] Floor [address] [place] [address] Malignant neoplasm of upper-inner quadrant of left breast in female, estrogen receptor positive (HCC) Discharge Disposition: Discharge to home or self care 05/14/2024 4:00 PM FIRE CONTROL MECHANIC Lab [facility] [address] [facility] Floor [address] [place] [address] Malignant neoplasm of upper-inner quadrant of left breast in female, estrogen receptor positive (HCC) 05/14/2024 3:30 PM FIRE CONTROL MECHANIC Office Visit [facility] [address] [facility] Floor [address] [place] [address] Khris Arthur MD Swelling of right lower extremity (Primary Dx); Malignant neoplasm of upper-inner quadrant of left breast in female, estrogen receptor positive (HCC); Swelling of right upper extremity; Swelling of left upper extremity; Swelling of left lower extremity 04/22/2024 Telephone [facility] [address] [place] [address] Floor 8 [place] [address] Radha Mcgrath RN from Last 3 Months Immunizations Immunization Administration [...] drink = 0.6 oz pur e alcohol) 2thelooities Answer Date Recorded In the past 12 months has [employer], gas, oil, or water [employer] threatened to shut off services in your [...] 05/24/2024 How often do you attend chur or jew services? More than 4 times per year 05/24/2024 Do you belong to any clubs o r organizations such as congregation groups, unions, fraternal or athletic groups, or [...] any time in the past 12 m [facility], were you homeless or living in [...] file Legal Sex Female 12:24 AM FIRE CONTROL MECHANIC Gender Identity Not on file Sexual [...] 1:49 PM CDT Height 154.9 cm (5' 1) 07/01/2024 1:49 PM CDT Body Mass Index [...] Risk Assessment 05/26/2025 05/26/2024 eGFR 07/01/2025 07/01/2024, 0205/2024, 05/25/2024, Additional history exists DTaP/Tdap/Td Vaccine (2 [...] GLUCOSE DEVICE Routine 05/26/2024 4 :27 PM FIRE CONTROL MECHANIC POCT GLUCOSE DEVICE Routine 05/26/2024 1 1:38 AM FIRE CONTROL MECHANIC POCT GLUCOSE DEVICE Routine 05/26/2024 8 :12 AM FIRE CONTROL MECHANIC EGFR Routine 05/26/2024 12:05 AM FIRE CONTROL MECHANIC DIFFERENTIAL AUTO Routine 05/26/2024 12: 05 AM FIRE CONTROL MECHANIC PHOSPHORUS Routine 05/26/2024 12:05 AM FIRE CONTROL MECHANIC COMPREHENSIVE METABOLIC PANEL Routine 05/26/2024 12:05 AM FIRE CONTROL MECHANIC MAGNESIUM Routine 05/26/2024 12:05 AM FIRE CONTROL MECHANIC CBC WITH AUTO DIFFERENTIAL Routine 05/26/2024 12:05 AM FIRE CONTROL MECHANIC POCT GLUCOSE DEVICE Routine 05/25/2024 7 :44 PM FIRE CONTROL MECHANIC POCT GLUCOSE DEVICE Routine 05/25/2024 5 :24 PM FIRE CONTROL MECHANIC POCT GLUCOSE DEVICE Routine 05/25/2024 1 1:37 AM FIRE CONTROL MECHANIC POCT GLUCOSE DEVICE Routine 05/25/2024 7 :27 AM FIRE CONTROL MECHANIC EGFR Routine 05/25/2024 12:20 AM FIRE CONTROL MECHANIC DIFFERENTIAL AUTO Routine 05/25/2024 12: 20 AM FIRE CONTROL MECHANIC PHOSPHORUS Routine 05/25/2024 12:20 AM FIRE CONTROL MECHANIC COMPREHENSIVE METABOLIC PANEL Routine 05/25/2024 12:20 AM FIRE CONTROL MECHANIC MAGNESIUM Routine 05/25/2024 12:20 AM FIRE CONTROL MECHANIC CBC WITH AUTO DIFFERENTIAL Routine 05/25/2024 12:20 AM FIRE CONTROL MECHANIC POCT GLUCOSE DEVICE Routine 05/24/2024 8 :13 PM FIRE CONTROL MECHANIC POCT GLUCOSE DEVICE Routine 05/24/2024 5 :17 PM FIRE CONTROL MECHANIC POCT GLUCOSE DEVICE Routine 05/24/2024 1 2:49 PM FIRE CONTROL MECHANIC POCT GLUCOSE DEVICE Routine 05/24/2024 9 :22 AM FIRE CONTROL MECHANIC HERPES SIMPLEX VIRUS (HSV) PCR Routine 05/24/2024 8:47 AM FIRE CONTROL MECHANIC POCT GLUCOSE DEVICE Routine 05/24/2024 8 :22 AM FIRE CONTROL MECHANIC EGFR Routine 05/24/2024 12:29 AM FIRE CONTROL MECHANIC DIFFERENTIAL AUTO Routine 05/24/2024 12: 29 AM FIRE CONTROL MECHANIC PHOSPHORUS Routine 05/24/2024 12:29 AM FIRE CONTROL MECHANIC COMPREHENSIVE METABOLIC PANEL Routine 05/24/2024 12:29 AM FIRE CONTROL MECHANIC MAGNESIUM Routine 05/24/2024 12:29 AM FIRE CONTROL MECHANIC CBC WITH AUTO DIFFERENTIAL Routine 05/24/2024 12:29 AM FIRE CONTROL MECHANIC POCT GLUCOSE DEVICE Routine 05/23/2024 8 :16 PM FIRE CONTROL MECHANIC POCT GLUCOSE DEVICE Routine 05/23/2024 6 :14 PM FIRE CONTROL MECHANIC POCT GLUCOSE DEVICE Routine 05/23/2024 1 2:17 PM FIRE CONTROL MECHANIC US VEIN DUPLEX LOWER EXTREMITY BILATERAL COMPLETE IP Routine 05/23/2024 11:45 AM FIRE CONTROL MECHANIC POCT GLUCOSE DEVICE Routine 05/23/2024 8 :16 AM FIRE CONTROL MECHANIC DIFFERENTIAL AUTO Routine 05/23/2024 2:3 0 AM FIRE CONTROL MECHANIC CBC WITH AUTO DIFFERENTIAL Routine 05/23/2024 2:30 AM FIRE CONTROL MECHANIC EGFR Routine 05/23/2024 12:42 AM FIRE CONTROL MECHANIC LACTATE DEHYDROGENASE Routine 05/23/2024 12:42 AM FIRE CONTROL MECHANIC URIC ACID Routine 05/23/2024 12:42 AM FIRE CONTROL MECHANIC TYPE AND SCREEN Timed 05/23/2024 12:42 AM FIRE CONTROL MECHANIC PHOSPHORUS Routine 05/23/2024 12:42 AM FIRE CONTROL MECHANIC COMPREHENSIVE METABOLIC PANEL Routine 05/23/2024 12:42 AM FIRE CONTROL MECHANIC MAGNESIUM Routine 05/23/2024 12:42 AM FIRE CONTROL MECHANIC POCT GLUCOSE DEVICE Routine 05/22/2024 8 :56 PM FIRE CONTROL MECHANIC POCT GLUCOSE DEVICE Routine 05/22/2024 6 :09 PM FIRE CONTROL MECHANIC POCT GLUCOSE DEVICE Routine 05/22/2024 4 :[address] ABDOMEN PELVIS W CONTRAST ED 05/22/2024 2:32 PM FIRE CONTROL MECHANIC POCT GLUCOSE DEVICE Routine 05/22/2024 1 2:58 PM FIRE CONTROL MECHANIC POCT GLUCOSE DEVICE Routine 05/22/2024 9 :29 AM FIRE CONTROL MECHANIC POCT GLUCOSE DEVICE Routine 05/22/2024 6 :[address] CT CHEST PE W CONTRAST ED 05/22/2024 1:31 AM FIRE CONTROL MECHANIC D-DIMER, QUANTITATIVE Routine 05/22/2024 12:24 AM FIRE CONTROL MECHANIC URINALYSIS, MICROSCOPIC ONLY Routine 05/21/2024 11:09 PM FIRE CONTROL MECHANIC TROPONIN I HIGH-SENSITIVITY 2-HOUR Timed 05/21/2024 11:09 PM FIRE CONTROL MECHANIC URINE CULTURE Routine 05/21/2024 11:09 PM FIRE CONTROL MECHANIC RESPIRATORY PATHOGEN PANEL Routine 05/21/2024 11:09 PM FIRE CONTROL MECHANIC URINALYSIS AND REFLEX TO MICROSCOPIC AND CULTURE Routine 05/21/2024 11:09 PM FIRE CONTROL MECHANIC POCT GLUCOSE DEVICE Routine 05/21/2024 8 :55 PM FIRE CONTROL MECHANIC TROPONIN I HIGH-SENSITIVITY 4-HOUR Timed 05/21/2024 7:26 PM FIRE CONTROL MECHANIC LIPID PANEL STAT 05/21/2024 4:20 PM FIRE CONTROL MECHANIC HEMOGLOBIN A1C STAT 05/21/2024 4:20 PM FIRE CONTROL MECHANIC EGFR STAT 05/21/2024 4:20 PM FIRE CONTROL MECHANIC DIFFERENTIAL AUTO STAT 05/21/2024 4:2 0 PM FIRE CONTROL MECHANIC TROPONIN I HIGH-SENSITIVITY SERIES (BASELINE, 2HR, 4HR, 6HR) STAT 05/21/2024 4:20 PM FIRE CONTROL MECHANIC COMPREHENSIVE METABOLIC PANEL STAT 05/21/2024 4:20 PM FIRE CONTROL MECHANIC CBC WITH AUTO DIFFERENTIAL STAT 05/21/2024 4:20 PM FIRE CONTROL MECHANIC XR CHEST PA LATERAL 2 VIEWS ED 05/21/2024 2:23 PM FIRE CONTROL MECHANIC POCT GLUCOSE DEVICE Routine 05/21/2024 1 :39 PM FIRE CONTROL MECHANIC ECG 12-LEAD STAT 05/21/2024 1:36 PM FIRE CONTROL MECHANIC US AXILLARY LEFT Schedule Routine, Read Routine (OP Routine) 05/21/2024 12:13 PM FIRE CONTROL MECHANIC History of breast cancer Axillary pain, left URINALYSIS, MICROSCOPIC ONLY Routine 05/14/2024 4:50 PM FIRE CONTROL MECHANIC Malignant neoplasm of upper-inner quadrant of left breast in female, estrogen receptor positive (HCC) URINALYSIS AND REFLEX TO MICROSCOPIC AND CULTURE Routine 05/14/2024 4:50 PM FIRE CONTROL MECHANIC Malignant neoplasm of upper-inner quadrant of left breast in female, estrogen receptor positive (HCC) XR RIBS LEFT 2 VIEWS Schedule Routine, Read Routine (OP Routine) 05/14/2024 4:44 PM FIRE CONTROL MECHANIC Malignant neoplasm of upper-inner quadrant of left [...] breath since last night. 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 AR: VALERY Report ID: [id number] Reading Location: [id number] Procedure Note Juve Gallegos MD - 07/01/2024 [...] Juve Gallegos M.D. AR: VALERY Report ID: [id number] Reading Location: [place] [address] [address]ON IMG [address] PROCEDURES Final Resu lt * (ABNORMAL) Troponin T high-sensitivity 2-hour (07/01/2024 3:43 PM CDT) Trop T hs 27(H) <=14 ng/L Comment: Interpretive Data For further hscTnT resources including the diagnostic algorithm and an aid in interpretation, copy and paste this link: https://nrl.testcatalog.org/show/hsTrop Current Interpretive Data last revised 2020. Testing performed by: [address] [address] Trop T hs delta 0 ng/L MARY JANE PHAM Comment:Testing performed by : [address] [address] Trop T hs interp Insignificant MARY JANE PHAM Comment:Testing performed by : [address] [address] Blood 07/01/2024 3:43 PM CDT 07/01/2024 3:52 PM CDT us Ilana Stevens MD LAB BLOOD ORDERABLES F inal Result MARY JANE [address] [facility] Department [place] [address] * (ABNORMAL) Urinalysis reflex to microscopic and culture Urine (07/01/2024 3:43 PM CDT) Color, ur Yellow Yellow Comment:Testing performed by : [address] [address] Clarity, ur Clear Clear MARY JANE PHMA Comment:Testing performed by : [address] [address] Specific gravity, ur 1.020 1.003 - 1.030 MARY JANE Comment:Testing performed by : [address], [place]., [address] pH, urine 6.0 MARY JANE Comment: Interpretive Data U rine pH is affected by diet, medications, systemic acid-base disturbances, and renal tubular function. pH may affect urinary stone formation. For example, urine pH below 6.0 may help reduce the tendency for calcium phosphate stones and pH greater than 6.0 may reduce the tendency for uric acid stone formation. Source: [facility] [employer] Current Interpretive Data was last revised on 2017 Testing performed by: [address] [address] Protein, ur ql Negative Negative MARY JANE Comment:Testing performed by : [address] [address] Glucose, ur ql 2+(A) Negative MARY JANE Comment:Testing performed by : [address] [address] Ketones, ur Negative Negative MARY JANE Comment:Testing performed by : [address] [address] Bilirubin, ur Negative Negative MARY JANE Comment:Testing performed by : [address] [address] Blood, ur Trace(A) Negative MARY JANE Comment:Testing performed by : [address] [address] Urobilinogen, ur <2.0 <2.0 mg/dL MARY JANE Comment:Testing performed by : [address] [address] Nitrite, ur Negative Negative MARY JANE Comment:Testing performed by : [address] [address] Leukocyte esterase, ur Negative Negative MARY JANE Comment:Testing performed by : [address] [address] UA reflex comment Reflex to microscopic UA will be performed. MARY JANE Comment:Testing performed by : [address] [address] Urine 07/01/2024 3:43 PM CDT 07/01/2024 3:52 PM CDT Ilana Stevens MD LAB MICROBIOLOGY - GEN ERAL ORDERABLES Final Result Performing Organization Address [facility] Co de Phone Number MARY JANE [address] [place] [address] * (ABNORMAL) Urinalysis, microscopic only (07/01/2024 3:43 PM CDT) WBC, ur 0-5 0 - 5 /HPF Comment:Testing performed by : [address] [address] RBC, ur 3-5(A) 0 - 2 /HPF MARY JANE Comment:Testing performed by : [address] [address] Epithelial cells, squamous, ur 1-5 0 - 5 /HPF MARY JANE Comment:Testing performed by : [address] [address] Mucous, ur Present(A) MARY JANE Comment:Testing performed by : [address] [address] Culture Reflex Comment Reflex conditions for urine culture (WBC >10) not met. MARY JANE Comment:Testing performed by : [address] [address] Urine 07/01/2024 3:43 PM CDT 07/01/2024 3:52 PM CDT Ilana Stevens MD LAB URINE ORDERABLES F inal Result Performing Organization Address City/[facility]/ZIP Co de Phone Number MARY JANE [address] [place] [address] * XR Chest 1 Vw Portable (if [...] Romelia Bowen D.O. PS: PS Report ID: [id number] Reading Location: [id number] Procedure Note Romelia Bowen, DO - 07/01/2024 [...] Romelia Bowen D.O. PS: PS Report ID: [id number] Reading Location: [id number] Ilana Stevens MD IMG XR PROCEDURES Deann l Result * ECG 12 lead (07/01/2024 2:05 PM CDT) Ventricular Rate EKG/Min 76 BPM [facility] Atrial Rate 76 BPM [facility] ND-Interval (MSEC) 130 ms [facility] QRS-Interval (MSEC) 86 ms [facility] QT-Interval (MSEC) 386 ms [facility] QTc 434 ms [facility] P [place] 26 degrees [facility] R [place] 22 degrees [facility] T [place] 46 degrees [facility] Diagnosis Normal sinus rhythm Normal ECG When compared with ECG of 28-DEC-2023 12:49, No significant change was found Confirmed by DUTCH BURGOS M.D. ([id number]) on 07/01/2024 10:10:22 PM [facility] 07/01/2024 2:05 PM CDT 07/01/2024 10:10 PM CDT us Ilana Stevens MD ECG ORDERABLES Final Result Performing Organization Address City/[facility] Co de Phone Number [facility] * (ABNORMAL) Troponin T high-sensitivity series (baseline, 2hr, 4hr, 6hr) (07/01/2024 2:02 PM CDT) Pathologist [facility] Trop T hs 27(H) <=14 ng/L Comment: Interpretive Data For further hscTnT resources including the diagnostic algorithm and an aid in interpretation, copy and paste this link: https://nrl.testcatalog.org/show/hsTrop Current Interpretive Data last revised 2020. Testing performed by: [facility], [address] [place] [address]., [address] Blood 07/01/2024 2:02 PM CDT 07/01/2024 2:12 PM CDT us Ilana Stevens MD LAB BLOOD ORDERABLES F inal Result [facility] [address] [facility] Department [place] [address] * Influenza A/B, RSV, and COVID-19 PCR Nasopharyngeal (07/01/2024 2:02 PM CDT) [facility] COVID-19 RNA Negative Negative Comment:Testing performed by : [address] [address] Influenza A RNA Negative Negative [facility] Comment:Testing performed by : [address] [address] Influenza B RNA Negative Negative [facility] Comment:Testing performed by : [address] [address] RSV RNA Negative Negative [facility] Comment: Interpretive data: Testing performed by [facility]. This test is performed using the [employer] Xpert Xpress CoV-2/Flu/RSV plus assay. This is a multiplex, real-time reverse transcriptase PCR assay intended for the qualitative detection of nucleic acid from SARS-CoV-2, influenza A, influenza B, and respiratory syncytial virus. This assay has been cleared by the [place] Food and Drug administration. The performance characteristics have been verified by the [facility]. Results must be considered in the clinical context, and a negative result does not rule out infection. Interpretive Data last revised 2023 Testing performed by: [address] [address] Nasopharyngeal 07/01/2024 2: 02 PM CDT 07/01/2024 2:12 PM CDT Narrative [facility] - 07/01/2024 2:52 PM CDT Is the Patient experiencing symptoms consistent with COVID?->Yes Ilana Stevens MD LAB MICROBIOLOGY - GEN ERAL ORDERABLES Final Result [facility] [address] [facility] Department [place] [address] * eGFR (07/01/2024 2:02 PM CDT) [facility] eGFR >90 >=60 mL/min/1. 73 m2 Comment: [...] was last reviewed 2021. Testing performed by: [address] [address] Blood 07/01/2024 2:02 PM CDT 07/01/2024 2:12 PM CDT us Ilana Stevens MD LAB BLOOD ORDERABLES F inal Result MARY JANE [address] [facility] Department of Laboratories [place], [place] [id number] * Differential, auto (07/01/2024 2:02 PM CDT) Neutrophil abs 5.3 1.5 - 6.5 K/cumm Comment:Testing performed by : [address] [address] Imm gran abs 0.0 0.0 - 0.1 K/cumm AMRY JANE Comment:Testing performed by : [address] [address] Lymphocyte abs 2.6 0.8 - 3.3 K/cumm MARY JANE Comment:Testing performed by : [address] [address] Monocyte abs 0.8 0.2 - 0.8 K/cumm MARY JANE Comment:Testing performed by : [address] [address] Eosinophil abs 0.2 0.0 - 0.5 K/cumm MARY JANE Comment:Testing performed by : [address] [address] Basophil abs 0.0 0.0 - 0.1 K/cumm MARY JANE Comment:Testing performed by : [address] [address] Neutrophil pct 59.1 % [facility] Comment: Interpretive Data Percent cell count reference ranges are not reported, since discordance with absolute values may lead to misinterpretation of CBC data. Current Interpretive Data was last revised on 2017. Testing performed by: [address] [address] Imm gran pct 0.2 % [facility] Comment: Interpretive Data Percent cell count reference ranges are not reported, since discordance with absolute values may lead to misinterpretation of CBC data. Current Interpretive Data was last revised on 2017. Testing performed by: [address] [address] Lymphocyte pct 29.0 % [facility] Comment: Interpretive Data Percent cell count reference ranges are not reported, since discordance with absolute values may lead to misinterpretation of CBC data. Current Interpretive Data was last revised on 2017. Testing performed by: [address] [address] Monocyte pct 9.3 % [facility] Comment: Interpretive Data Percent cell count reference ranges are not reported, since discordance with absolute values may lead to misinterpretation of CBC data. Current Interpretive Data was last revised on 2017. Testing performed by: [address] [address] Eosinophil pct 2.2 % MARY JANE Comment: Interpretive Data Percent cell count reference ranges are not reported, since discordance with absolute values may lead to misinterpretation of CBC data. Current Interpretive Data was last revised on 2017. Testing performed by: [address] [address] Basophil pct 0.2 % [facility] Comment: Interpretive Data Percent cell count reference ranges are not reported, since discordance with absolute values may lead to misinterpretation of CBC data. Current Interpretive Data was last revised on 2017. Testing performed by: [facility], [address] [place] [address]., [address] Blood 07/01/2024 2:02 PM CDT 07/01/2024 2:12 PM CDT us Ilana Stevens MD LAB BLOOD ORDERABLES F inal Result MARY JANE [id number] [facility] [place] [address] * Pro B-type natriuretic peptide [...] Heart J. 2006:27:[id number]. 2. Tracy GRANT, Duyen AM. J. AM Wang Cardiol: Cardiovasc Imag. 2009;2: 216- 225. Interpretive Data Last Revised Date: 2017. Testing performed by: [address] [address] Blood 07/01/2024 2:02 PM CDT 07/01/2024 2:12 PM CDT Ilana Stevens MD LAB BLOOD ORDERABLES F inal Result [facility] [address] [facility] Department [place] [address] * (ABNORMAL) CBC with auto differential (07/01/2024 2:02 PM CDT) Pathologist [facility] WBC 9.0 3.8 - 9.9 K/cumm Comment:Testing performed by : [address] [address] Hgb 13.2 11.9 - 15.5 g/dL MARY JANE Comment:Testing performed by : [address] [address] Hct 41.1 35.6 - 45.5 % MARY JANE Comment:Testing performed by : [address] [address] Plt 277 150 - 400 K/cumm MARY JANE Comment:Testing performed by : [address] [address] MPV 9.5 9.1 - 12.3 fL MARY JANE Comment:Testing performed by : [address] [address] RBC 4.53 3.90 - 5.20 M/cumm MARY JANE Comment:Testing performed by : [address] [address] MCV 90.7 81.3 - 96.4 fL MARY JANE Comment:Testing performed by : [address] [address] MCH 29.1 27.1 - 33.3 pg MARY JANE Comment:Testing performed by : [address] [address] MCHC 32.1(L) 32.3 - 35.7 g/dL MARY JANE PHAM Comment:Testing performed by : [address] [address] RDW CV 13.2 11.1 - 14.9 % MARY JANE PHAM Comment:Testing performed by : [address] [address] RDW SD 44.2 35.7 - 48.1 fL MARY JANE PHAM Comment:Testing performed by : [address] [address] NRBC abs 0.00 0.00 - 0.01 K/cumm MARY JANE PHAM Comment:Testing performed by : [address] [address] Blood 07/01/2024 2:02 PM CDT 07/01/2024 2:12 PM CDT Ilana Stevens MD LAB BLOOD ORDERABLES F inal Result [facility] [address] [facility] Department [place] [address] * Comprehensive metabolic panel (07/01/2024 2:02 PM CDT) Sodium 137 135 - 145 mmol/L Comment:Testing performed by : [address] [address] Potassium, pl 4.2 3.3 - 4.9 mmol/L MARY JANE PHAM Comment:Testing performed by : [address] [address] Chloride 101 97 - 110 mmol/L MARY JANE PHAM Comment:Testing performed by : [address] [address] CO2 27 22 - 32 mmol/L MARY JANE PHAM Comment:Testing performed by : [address] [address] Anion gap 9 2 - 15 mmol/L MARY JANE PHAM Comment:Testing performed by : [address] [address] BUN 15 6 - 25 mg/dL MARY JANE Comment:Testing performed by : [address] [address] Creatinine 0.60 0.60 - 1.10 mg/dL MARY JANE Comment:Testing performed by : [address] [address] Glucose 166 70 - 199 mg/dL [facility] Comment: Interpretive Data Fasting glucose >/= [...] was last revised 2022. Testing performed by: [address] [address] Calcium 9.8 8.5 - 10.3 mg/dL MARY JANE Comment:Testing performed by : [address] [address] Bilirubin, total 0.5 0.1 - 1.2 mg/dL MARY JANE Comment:Testing performed by : [address] [address] Protein, pl 8.0 6.5 - 8.5 g/dL MARY JANE Comment:Testing performed by : [address] [address] Albumin 3.8 3.5 - 5.0 g/dL [facility] Comment:Testing performed by : [address] [address] Alk phos 72 40 - 130 Units/L MARY JANE Comment:Testing performed by : [address] [address] ALT 19 7 - 45 Units/L MARY JANE Comment:Testing performed by : [address] [address] AST 23 10 - 45 Units/L MARY JANE Comment:Testing performed by : [facility] [address] [place] [address], [place]., [address] Blood 07/01/2024 2:02 PM CDT 07/01/2024 2:12 PM CDT Ilana Stevens MD LAB BLOOD ORDERABLES F inal Result Performing Organization Address City/[facility] Co de Phone Number [place] [address] [facility] Department [place] [address] * POCT glucose (05/26/2024 4:27 PM FIRE CONTROL MECHANIC) Glucose, POC 137 70 - 199 mg/dL Blood 05/26/2024 4:27 PM FIRE CONTROL MECHANIC 05/26/2024 4:27 PM FIRE CONTROL MECHANIC Result [facility] Carlos Real MD LAB POCT ORDERABLES - DEVICE Fin al Result Performing Organization Address [facility] Co de Phone Number MARY JANE [facility] Department [place] [address] * POCT glucose (05/26/2024 11:38 AM FIRE CONTROL MECHANIC) Glucose, POC 146 70 - 199 mg/dL Blood 05/26/2024 11:3 8 AM FIRE CONTROL MECHANIC 05/26/2024 11:38 AM FIRE CONTROL MECHANIC Result [facility] Carlos Real MD LAB POCT ORDERABLES - DEVICE Fin al Result Performing Organization Address [facility] de Phone Number [facility] [place] [address] * POCT glucose (05/26/2024 8:12 AM FIRE CONTROL MECHANIC) Glucose, POC 134 70 - 199 mg/dL Blood 05/26/2024 8:12 AM FIRE CONTROL MECHANIC 05/26/2024 8:12 AM FIRE CONTROL MECHANIC Result [facility] Carlos Real MD LAB POCT ORDERABLES - DEVICE Fin al Result Performing Organization Address [facility] Co de Phone Number MARY JANE [facility] Department [place] [address] * eGFR (05/26/2024 12:05 AM FIRE CONTROL MECHANIC) eGFR >90 >=60 mL/min/1. 73 m2 Comment: [...] reviewed 2021. Blood 05/26/2024 12:0 5 AM FIRE CONTROL MECHANIC 05/26/2024 12:23 AM FIRE CONTROL MECHANIC us Carlos Real MD LAB BLOOD ORDERABLES Final Resul t Performing Organization Address City/[facility] Co de Phone Number [facility] Department [place] [address] * (ABNORMAL) Differential, auto (05/26/2024 12:05 AM FIRE CONTROL MECHANIC) Neutrophil abs 6.4 1.5 - 6.5 K/cumm Imm gran abs 0.0 0.0 - 0.1 K/cumm [facility] Lymphocyte abs 2.9 0.8 - 3.3 K/cumm [facility] Monocyte abs 0.9(H) 0.2 - 0.8 K/cumm [facility] Eosinophil abs 0.3 0.0 - 0.5 K/cumm [facility] Basophil abs 0.0 0.0 - 0.1 K/cumm [facility] Neutrophil pct 60.4 % [facility] Comment: Interpretive Data Percent cell count reference ranges are not reported, since discordance with absolute values may lead to misinterpretation of CBC data. Current Interpretive Data was last revised on 2017. Imm gran pct 0.4 % [facility] Comment: Interpretive Data Percent cell count reference ranges are not reported, since discordance with absolute values may lead to misinterpretation of CBC data. Current Interpretive Data was last revised on 2017. Lymphocyte pct 27.5 % [facility] Comment: Interpretive Data Percent cell count reference ranges are not reported, since discordance with absolute values may lead to misinterpretation of CBC data. Current Interpretive Data was last revised on 2017. Monocyte pct 8.2 % [facility] Comment: Interpretive Data Percent cell count reference ranges are not reported, since discordance with absolute values may lead to misinterpretation of CBC data. Current Interpretive Data was last revised on 2017. Eosinophil pct 3.1 % [facility] Comment: Interpretive Data Percent cell count reference ranges are not reported, since discordance with absolute values may lead to misinterpretation of CBC data. Current Interpretive Data was last revised on 2017. Basophil pct 0.4 % [facility] Comment: Interpretive Data Percent cell count reference ranges are not reported, since discordance with absolute values may lead to misinterpretation of CBC data. Current Interpretive Data was last revised on 2017. Blood 05/26/2024 12:0 5 AM FIRE CONTROL MECHANIC 05/26/2024 12:07 AM FIRE CONTROL MECHANIC us Carlos Real MD LAB BLOOD ORDERABLES Final Resul t MARY JANE [facility] Department [place] [address] * (ABNORMAL) CBC with auto differential (05/26/2024 12:05 AM FIRE CONTROL MECHANIC) WBC 10.6(H) 3.8 - 9.9 K/cumm Hgb 12.5 11.9 - 15.5 g/dL [facility] Hct 39.2 35.6 - 45.5 % [facility] Plt 248 150 - 400 K/cumm [facility] MPV 9.7 9.1 - 12.3 fL [facility] RBC 4.32 3.90 - 5.20 M/cumm [facility] MCV 90.7 81.3 - 96.4 fL [facility] MCH 28.9 27.1 - 33.3 pg [facility] MCHC 31.9(L) 32.3 - 35.7 g/dL [facility] RDW CV 13.5 11.1 - 14.9 % [facility] RDW SD 45.1 35.7 - 48.1 fL [facility] NRBC abs 0.00 0.00 - 0.01 K/cumm [facility] Blood 05/26/2024 12:0 5 AM FIRE CONTROL MECHANIC 05/26/2024 12:07 AM FIRE CONTROL MECHANIC Carlos Real MD LAB BLOOD ORDERABLES Final Resul t Performing Organization Address City/[facility]/ZIP Co de Phone Number [facility] Department of [employer] [place] [address] * Phosphorus (05/26/2024 12:05 AM FIRE CONTROL MECHANIC) Phosphorus, pl 3.2 2.3 - 4.5 mg/dL Blood 05/26/2024 12:0 5 AM FIRE CONTROL MECHANIC 05/26/2024 12:08 AM FIRE CONTROL MECHANIC Carlos Real MD LAB BLOOD ORDERABLES Final Resul t Performing Organization Address City/[facility]/ZIP Co de Phone Number [facility] Department [place] [address] * Magnesium (05/26/2024 12:05 AM FIRE CONTROL MECHANIC) Magnesium 1.8 1.4 - 2.5 mg/dL Blood 05/26/2024 12:0 5 AM FIRE CONTROL MECHANIC 05/26/2024 12:08 AM FIRE CONTROL MECHANIC us Carlos Real MD LAB BLOOD ORDERABLES Final Resul t [facility] Department [place] [address] * (ABNORMAL) Comprehensive metabolic panel (05/26/2024 12:05 AM FIRE CONTROL MECHANIC) Pathologist [facility] Sodium 136 135 - 145 mmol/L Potassium, pl 4.2 3.3 - 4.9 mmol/L [facility] Chloride 101 97 - 110 mmol/L [facility] CO2 29 22 - 32 mmol/L [facility] Anion gap 6 2 - 15 mmol/L [facility] BUN 19 6 - 25 mg/dL [facility] Creatinine 0.67 0.60 - 1.10 mg/dL [facility] Glucose 164 70 - 199 mg/dL [facility] Comment: Interpretive Data Fasting glucose [...] 2022. Calcium 9.4 8.5 - 10.3 mg/dL [facility] Bilirubin, total 0.4 0.1 - 1.2 mg/dL [facility] Protein, pl 7.1 6.5 - 8.5 g/dL [facility] Albumin 3.3(L) 3.5 - 5.0 g/dL [facility] Alk phos 65 40 - 130 Units/L [facility] ALT 17 7 - 45 Units/L [facility] AST 19 10 - 45 Units/L [facility] Blood 05/26/2024 12:0 5 AM FIRE CONTROL MECHANIC 05/26/2024 12:08 AM FIRE CONTROL MECHANIC Carlos Real MD LAB BLOOD ORDERABLES Final Resul t Performing Organization Address City/[facility] Co de Phone Number [facility] [place] [address] * POCT glucose (05/25/2024 7:44 PM FIRE CONTROL MECHANIC) Glucose, POC 160 70 - 199 mg/dL Blood 05/25/2024 7:44 PM FIRE CONTROL MECHANIC 05/25/2024 7:44 PM FIRE CONTROL MECHANIC Carlos Real MD LAB POCT ORDERABLES - DEVICE Fin al Result Performing Organization Address [facility] Co de Phone Number [facility] [place] [address] * POCT glucose (05/25/2024 5:24 PM FIRE CONTROL MECHANIC) Glucose, POC 152 70 - 199 mg/dL Blood 05/25/2024 5:24 PM FIRE CONTROL MECHANIC 05/25/2024 5:24 PM FIRE CONTROL MECHANIC Result [facility] Carlos Real MD LAB POCT ORDERABLES - DEVICE Fin al Result Performing Organization Address [facility] Co de Phone Number [facility] [place] [place] [address] * POCT glucose (05/25/2024 11:37 AM FIRE CONTROL MECHANIC) Glucose, POC 143 70 - 199 mg/dL Blood 05/25/2024 11:3 7 AM FIRE CONTROL MECHANIC 05/25/2024 11:37 AM FIRE CONTROL MECHANIC Carlos Real MD LAB POCT ORDERABLES - DEVICE Fin al Result Performing Organization Address [facility] Co de Phone Number [facility] [place] [address] * POCT glucose (05/25/2024 7:27 AM FIRE CONTROL MECHANIC) Glucose, POC 134 70 - 199 mg/dL Blood 05/25/2024 7:27 AM FIRE CONTROL MECHANIC 05/25/2024 7:27 AM FIRE CONTROL MECHANIC Carlos Real MD LAB POCT ORDERABLES - DEVICE Fin al Result Performing Organization Address [facility] Co de Phone Number [place] [address] * eGFR (05/25/2024 12:20 AM FIRE CONTROL MECHANIC) eGFR >90 >=60 mL/min/1. 73 m2 Comment: [...] reviewed 2021. Blood 05/25/2024 12:2 0 AM FIRE CONTROL MECHANIC 05/25/2024 12:43 AM FIRE CONTROL MECHANIC us Naila Guzman NP LAB BLOOD ORDERABLES Final Result Performing Organization Address City/[facility]/ZIP Co de Phone Number [facility] [place] [address] * Differential, auto (05/25/2024 12:20 AM FIRE CONTROL MECHANIC) Neutrophil abs 5.9 1.5 - 6.5 K/cumm Imm gran abs 0.0 0.0 - 0.1 K/cumm [facility] Lymphocyte abs 2.4 0.8 - 3.3 K/cumm [facility] Monocyte abs 0.8 0.2 - 0.8 K/cumm [facility] Eosinophil abs 0.3 0.0 - 0.5 K/cumm [facility] Basophil abs 0.0 0.0 - 0.1 K/cumm [facility] Neutrophil pct 62.6 % [facility] Comment: Interpretive Data Percent cell count reference ranges are not reported, since discordance with absolute values may lead to misinterpretation of CBC data. Current Interpretive Data was last revised on 2017. Imm gran pct 0.3 % [facility] Comment: Interpretive Data Percent cell count reference ranges are not reported, since discordance with absolute values may lead to misinterpretation of CBC data. Current Interpretive Data was last revised on 2017. Lymphocyte pct 24.8 % [facility] Comment: Interpretive Data Percent cell count reference ranges are not reported, since discordance with absolute values may lead to misinterpretation of CBC data. Current Interpretive Data was last revised on 2017. Monocyte pct 8.8 % [facility] Comment: Interpretive Data Percent cell count reference ranges are not reported, since discordance with absolute values may lead to misinterpretation of CBC data. Current Interpretive Data was last revised on 2017. Eosinophil pct 3.2 % [facility] Comment: Interpretive Data Percent cell count reference ranges are not reported, since discordance with absolute values may lead to misinterpretation of CBC data. Current Interpretive Data was last revised on 2017. Basophil pct 0.3 % [facility] Comment: Interpretive Data Percent cell count reference ranges are not reported, since discordance with absolute values may lead to misinterpretation of CBC data. Current Interpretive Data was last revised on 2017. Blood 05/25/2024 12:2 0 AM FIRE CONTROL MECHANIC 05/25/2024 12:29 AM FIRE CONTROL MECHANIC Result [facility] Naila Guzman NP LAB BLOOD ORDERABLES Final Result [facility] [place] [address] * (ABNORMAL) CBC with auto differential (05/25/2024 12:20 AM FIRE CONTROL MECHANIC) Pathologist [facility] WBC 9.5 3.8 - 9.9 K/cumm Hgb 12.8 11.9 - 15.5 g/dL [facility] Hct 40.0 35.6 - 45.5 % [facility] Plt 246 150 - 400 K/cumm [facility] MPV 9.8 9.1 - 12.3 fL [facility] RBC 4.42 3.90 - 5.20 M/cumm [facility] MCV 90.5 81.3 - 96.4 fL [facility] MCH 29.0 27.1 - 33.3 pg [facility] MCHC 32.0(L) 32.3 - 35.7 g/dL [facility] RDW CV 13.5 11.1 - 14.9 % [facility] RDW SD 45.3 35.7 - 48.1 fL [facility] NRBC abs 0.00 0.00 - 0.01 K/cumm [facility] Blood 05/25/2024 12:2 0 AM FIRE CONTROL MECHANIC 05/25/2024 12:29 AM FIRE CONTROL MECHANIC Naila Guzman NP LAB BLOOD ORDERABLES Final Result [facility] Department [place] [address] * Phosphorus (05/25/2024 12:20 AM FIRE CONTROL MECHANIC) Pathologist [facility] Phosphorus, pl 3.1 2.3 - 4.5 mg/dL Blood 05/25/2024 12:2 0 AM FIRE CONTROL MECHANIC 05/25/2024 12:29 AM FIRE CONTROL MECHANIC Result [facility] Naila Guzman AUDIO VISUAL SECRETARY LAB BLOOD ORDERABLES Final Result Performing Organization Address City/[facility] Co de Phone Number [facility] [place] [address] * Magnesium (05/25/2024 12:20 AM FIRE CONTROL MECHANIC) Pathologist [facility] Magnesium 1.9 1.4 - 2.5 mg/dL Blood 05/25/2024 12:2 0 AM FIRE CONTROL MECHANIC 05/25/2024 12:29 AM FIRE CONTROL MECHANIC Naila Guzman AUDIO VISUAL SECRETARY LAB BLOOD ORDERABLES Final Result Performing Organization Address [facility] de Phone Number [facility] Department [place] [address] * (ABNORMAL) Comprehensive metabolic panel (05/25/2024 12:20 AM FIRE CONTROL MECHANIC) [facility] Sodium 138 135 - 145 mmol/L Potassium, pl 4.4 3.3 - 4.9 mmol/L [facility] Chloride 101 97 - 110 mmol/L [facility] CO2 29 22 - 32 mmol/L [facility] Anion gap 8 2 - 15 mmol/L [facility] BUN 20 6 - 25 mg/dL [facility] Creatinine 0.69 0.60 - 1.10 mg/dL [facility] Glucose 156 70 - 199 mg/dL [facility] Comment: Interpretive Data Fasting glucose [...] 2022. Calcium 9.4 8.5 - 10.3 mg/dL [facility] Bilirubin, total 0.5 0.1 - 1.2 mg/dL [facility] Protein, pl 7.4 6.5 - 8.5 g/dL [facility] Albumin 3.4(L) 3.5 - 5.0 g/dL [facility] Alk phos 67 40 - 130 Units/L [facility] ALT 18 7 - 45 Units/L [facility] AST 16 10 - 45 Units/L [facility] Blood 05/25/2024 12:2 0 AM FIRE CONTROL MECHANIC 05/25/2024 12:29 AM FIRE CONTROL MECHANIC Naila Guzman AUDIO VISUAL SECRETARY LAB BLOOD ORDERABLES Final Result Performing Organization Address [facility] Co de Phone Number [facility] [place] [address] * POCT glucose (05/24/2024 8:13 PM FIRE CONTROL MECHANIC) Glucose, POC 171 70 - 199 mg/dL Blood 05/24/2024 8:13 PM FIRE CONTROL MECHANIC 05/24/2024 8:13 PM FIRE CONTROL MECHANIC Carlos Real MD LAB POCT ORDERABLES - DEVICE Fin al Result Performing Organization Address [facility] Co de Phone Number [facility] [place] [address] * POCT glucose (05/24/2024 5:17 PM FIRE CONTROL MECHANIC) Glucose, POC 133 70 - 199 mg/dL Blood 05/24/2024 5:17 PM FIRE CONTROL MECHANIC 05/24/2024 5:17 PM FIRE CONTROL MECHANIC Carlos Real MD LAB POCT ORDERABLES - DEVICE Fin al Result Performing Organization Address City/[facility] Co de Phone Number [facility] [place] [address] * POCT glucose (05/24/2024 12:49 PM FIRE CONTROL MECHANIC) Glucose, POC 180 70 - 199 mg/dL Blood 05/24/2024 12:4 9 PM FIRE CONTROL MECHANIC 05/24/2024 12:49 PM FIRE CONTROL MECHANIC Result [facility] Carlos Real MD LAB POCT ORDERABLES - DEVICE Fin al Result Performing Organization Address [facility] de Phone Number [facility] [address] * POCT glucose (05/24/2024 9:22 AM FIRE CONTROL MECHANIC) Pathologist [facility] Glucose, POC 139 70 - 199 mg/dL Blood 05/24/2024 9:22 AM FIRE CONTROL MECHANIC 05/24/2024 9:22 AM FIRE CONTROL MECHANIC Result [facility] Carlos Real MD LAB POCT ORDERABLES - DEVICE Fin al Result Performing Organization Address [facility] Phone Number [facility] Department [place] [address] * Herpes Simplex Virus (HSV) PCR Oral (05/24/2024 8:47 AM FIRE CONTROL MECHANIC) [facility] HSV DNA Not Detected Not Detected [facility] Comment: Interpretive Data This assay is [...] reviewed on 08/21/2018 Oral 05/24/2024 8:47 AM FIRE CONTROL MECHANIC 05/24/2024 9:24 AM FIRE CONTROL MECHANIC Narrative [facility] - 05/24/2024 4:28 PM FIRE CONTROL MECHANIC Oral ulcer swab Result [facility] Naila Guzman NP LAB MICROBIOLOGY - GENERAL ORDERABLES Final Result Performing Organization Address [facility] Co de Phone Number [facility] Department [place] [address] [facility] * POCT glucose (05/24/2024 8:22 AM FIRE CONTROL MECHANIC) Glucose, POC 132 70 - 199 mg/dL Blood 05/24/2024 8:22 AM FIRE CONTROL MECHANIC 05/24/2024 8:22 AM FIRE CONTROL MECHANIC us Carlos Real MD LAB POCT ORDERABLES - DEVICE Fin al Result Performing Organization Address [facility] de Phone Number [facility] Department [place] [address] * eGFR (05/24/2024 12:29 AM FIRE CONTROL MECHANIC) eGFR 87 >=60 mL/min/1. 73 m2 Comment: [...] reviewed 2021. Blood 05/24/2024 12:2 9 AM FIRE CONTROL MECHANIC 05/24/2024 12:54 AM FIRE CONTROL MECHANIC us Naila Guzman NP LAB BLOOD ORDERABLES Final Result Performing Organization Address [facility]/State/ZIP Co de Phone Number MARY JANE ANGELES [facility] [place] [address] * (ABNORMAL) Differential, auto (05/24/2024 12:29 AM FIRE CONTROL MECHANIC) Neutrophil abs 5.3 1.5 - 6.5 K/cumm Imm gran abs 0.0 0.0 - 0.1 K/cumm [facility] Lymphocyte abs 3.0 0.8 - 3.3 K/cumm [facility] Monocyte abs 0.9(H) 0.2 - 0.8 K/cumm [facility] Eosinophil abs 0.3 0.0 - 0.5 K/cumm [facility] Basophil abs 0.0 0.0 - 0.1 K/cumm [facility] Neutrophil pct 55.8 % [facility] Comment: Interpretive Data Percent cell count reference ranges are not reported, since discordance with absolute values may lead to misinterpretation of CBC data. Current Interpretive Data was last revised on 2017. Imm gran pct 0.4 % [facility] Comment: Interpretive Data Percent cell count reference ranges are not reported, since discordance with absolute values may lead to misinterpretation of CBC data. Current Interpretive Data was last revised on 2017. Lymphocyte pct 31.4 % [facility] Comment: Interpretive Data Percent cell count reference ranges are not reported, since discordance with absolute values may lead to misinterpretation of CBC data. Current Interpretive Data was last revised on 2017. Monocyte pct 9.0 % [facility] Comment: Interpretive Data Percent cell count reference ranges are not reported, since discordance with absolute values may lead to misinterpretation of CBC data. Current Interpretive Data was last revised on 2017. Eosinophil pct 3.0 % [facility] Comment: Interpretive Data Percent cell count reference ranges are not reported, since discordance with absolute values may lead to misinterpretation of CBC data. Current Interpretive Data was last revised on 2017. Basophil pct 0.4 % [facility] Comment: Interpretive Data Percent cell count reference ranges are not reported, since discordance with absolute values may lead to misinterpretation of CBC data. Current Interpretive Data was last revised on 2017. Blood 05/24/2024 12:2 9 AM FIRE CONTROL MECHANIC 05/24/2024 12:54 AM FIRE CONTROL MECHANIC Naila Guzman NP LAB BLOOD ORDERABLES Final Result Performing Organization Address City/[facility]/ZIP Co de Phone Number [facility] [place] [address] * CBC with auto differential (05/24/2024 12:29 AM FIRE CONTROL MECHANIC) WBC 9.5 3.8 - 9.9 K/cumm Hgb 12.6 11.9 - 15.5 g/dL [facility] Hct 39.0 35.6 - 45.5 % [facility] Plt 223 150 - 400 K/cumm [facility] MPV 9.6 9.1 - 12.3 fL [facility] RBC 4.23 3.90 - 5.20 M/cumm [facility] MCV 92.2 81.3 - 96.4 fL [facility] MCH 29.8 27.1 - 33.3 pg [facility] MCHC 32.3 32.3 - 35.7 g/dL [facility] RDW CV 13.7 11.1 - 14.9 % [facility] RDW SD 46.5 35.7 - 48.1 fL [facility] NRBC abs 0.00 0.00 - 0.01 K/cumm [facility] Blood 05/24/2024 12:2 9 AM FIRE CONTROL MECHANIC 05/24/2024 12:54 AM FIRE CONTROL MECHANIC Naila Guzman NP LAB BLOOD ORDERABLES Final Result Performing Organization Address City/[facility]/ZIP Co de Phone Number [facility] [place] [address] * Phosphorus (05/24/2024 12:29 AM FIRE CONTROL MECHANIC) Phosphorus, pl 3.6 2.3 - 4.5 mg/dL Blood 05/24/2024 12:2 9 AM FIRE CONTROL MECHANIC 05/24/2024 12:54 AM FIRE CONTROL MECHANIC Naila Guzman NP LAB BLOOD ORDERABLES Final Result Performing Organization Address City/[facility] Co de Phone Number [facility] [place] [address] * Magnesium (05/24/2024 12:29 AM FIRE CONTROL MECHANIC) [facility] Magnesium 1.9 1.4 - 2.5 mg/dL Blood 05/24/2024 12:2 9 AM FIRE CONTROL MECHANIC 05/24/2024 12:54 AM FIRE CONTROL MECHANIC Naila Guzman NP LAB BLOOD ORDERABLES Final Result Performing Organization Address [facility] de Phone Number [facility] Department [place] [address] * (ABNORMAL) Comprehensive metabolic panel (05/24/2024 12:29 AM FIRE CONTROL MECHANIC) [facility] Sodium 139 135 - 145 mmol/L Potassium, pl 4.3 3.3 - 4.9 mmol/L [facility] Chloride 103 97 - 110 mmol/L [facility] CO2 29 22 - 32 mmol/L [facility] Anion gap 7 2 - 15 mmol/L [facility] BUN 19 6 - 25 mg/dL [facility] Creatinine 0.75 0.60 - 1.10 mg/dL [facility] Glucose 157 70 - 199 mg/dL [facility] Comment: Interpretive Data Fasting glucose [...] 2022. Calcium 9.2 8.5 - 10.3 mg/dL [facility] Bilirubin, total 0.4 0.1 - 1.2 mg/dL [facility] Protein, pl 7.1 6.5 - 8.5 g/dL [facility] Albumin 3.3(L) 3.5 - 5.0 g/dL [facility] Alk phos 65 40 - 130 Units/L [facility] ALT 18 7 - 45 Units/L [facility] AST 17 10 - 45 Units/L [facility] Blood 05/24/2024 12:2 9 AM FIRE CONTROL MECHANIC 05/24/2024 12:54 AM FIRE CONTROL MECHANIC Result [facility] Naila Guzman NP LAB BLOOD ORDERABLES Final Result Performing Organization Address [facility] Co de Phone Number [facility] [place] [place] [address] * POCT glucose (05/23/2024 8:16 PM FIRE CONTROL MECHANIC) Glucose, POC 145 70 - 199 mg/dL Blood 05/23/2024 8:16 PM FIRE CONTROL MECHANIC 05/23/2024 8:16 PM FIRE CONTROL MECHANIC Result [facility] Carlos Real MD LAB POCT ORDERABLES - DEVICE Fin al Result Performing Organization Address [facility] Co de Phone Number [facility] [place] [place] [address] * POCT glucose (05/23/2024 6:14 PM FIRE CONTROL MECHANIC) Glucose, POC 181 70 - 199 mg/dL Blood 05/23/2024 6:14 PM FIRE CONTROL MECHANIC 05/23/2024 6:14 PM FIRE CONTROL MECHANIC Result [facility] Carlos Real MD LAB POCT ORDERABLES - DEVICE Fin al Result Performing Organization Address [facility] Co de Phone Number [facility] [place] [place] [address] * POCT glucose (05/23/2024 12:17 PM FIRE CONTROL MECHANIC) Glucose, POC 159 70 - 199 mg/dL Blood 05/23/2024 12:1 7 PM FIRE CONTROL MECHANIC 05/23/2024 12:17 PM FIRE CONTROL MECHANIC us Cem Knapp MD LAB POCT ORDERABLES - DEVIC E Final Result [facility] [place] [address] * US Vein Duplex Lower Extremity Bilateral Complete (05/23/2024 11:45 AM FIRE CONTROL MECHANIC) LV EF % CONS SCIMAGE Anatomical Region Laterality Modality Vascular Bilateral Ultrasound 05/23/2024 11:1 2 AM FIRE CONTROL MECHANIC Narrative 05/23/2024 9:43 PM FIRE CONTROL MECHANIC [facility] - Department of Vascular Surgery, Vascular Laboratory [address] [place] [id number] Lower Extremity Venous Ultrasound Report Patient Name: MOHSEN MARQUES M : 1955 (68y 11m) Study Date: 05/23/2024 11:12:03 AM Gender: F Tech: VELVET Location: [id number] Ref Provider: CARLOS REAL Quality: Adequate Order Provider: CARLOS REAL PROCEDURES: Vascular Report: Venous Duplex imaging was performed bilaterally in the lower extremities. The common femoral, femoral, popliteal, posterior tibial, peroneal veins were evaluated for patency, spontaneity and phasicity with Doppler, compression and augmentation maneuvers. Great saphenous vein proximal at the junction was evaluated with compression maneuvers. INDICATIONS: Localized edema. FINDINGS: Performing Triage Register Nurse: Marlys Castillo RVT. Bilateral: Venous Doppler signals [...] Vu Obregon MD FACS 05/23/2024 9:42:19 PM FIRE CONTROL MECHANIC Procedure Note Vu Obregon MD - 05/23/2024 [employer] - Department of Vascular Surgery,Vascular Laboratory [address] [place] [id number] Lower Extremity Venous Ultrasound Report Patient Name: MOHSEN MARQUES M : 1955 (68y 11m) Study Date: 05/23/2024 11:12:03 AM Gender: F Tech: VELVET Location: [id number] Ref Provider: RAIS, CARLOS Quality: Adequate Order Provider: CARLOS REAL PROCEDURES: Vascular Report: Venous Duplex imaging was performed bilaterally in the lower extremities.The common femoral, femoral, popliteal, posterior tibial, peroneal veins wereevaluated for patency, spontaneity and phasicity with Doppler, compression and augmentationmaneuvers. Great saphenous vein proximal at the junction was evaluated with compressionmaneuvers. INDICATIONS: Localized edema. FINDINGS: Performing Triage Register Nurse: Marlys Castillo RVT. Bilateral: Venous Doppler signals [...] Vu Obregon MD FACS 05/23/2024 9:42:19 PM FIRE CONTROL MECHANIC Carlos Real MD IMG US PROCEDURES Final Result * (ABNORMAL) POCT glucose (05/23/2024 8:16 AM FIRE CONTROL MECHANIC) Glucose, POC 204(H) 70 - 199 mg/dL Blood 05/23/2024 8:16 AM FIRE CONTROL MECHANIC 05/23/2024 8:16 AM FIRE CONTROL MECHANIC Cem Knapp MD LAB POCT ORDERABLES - DEVIC E Final Result [facility] [place] [address] * (ABNORMAL) Differential, auto (05/23/2024 2:30 AM FIRE CONTROL MECHANIC) Pathologist [facility] Neutrophil abs 8.0(H) 1.5 - 6.5 K/cumm Imm gran abs 0.1 0.0 - 0.1 K/cumm [facility] Lymphocyte abs 2.6 0.8 - 3.3 K/cumm [facility] Monocyte abs 1.0(H) 0.2 - 0.8 K/cumm [facility] Eosinophil abs 0.3 0.0 - 0.5 K/cumm [facility] Basophil abs 0.0 0.0 - 0.1 K/cumm [facility] Neutrophil pct 66.5 % [facility] Comment: Interpretive Data Percent cell count reference ranges are not reported, since discordance with absolute values may lead to misinterpretation of CBC data. Current Interpretive Data was last revised on 2017. Imm gran pct 0.5 % [facility] Comment: Interpretive Data Percent cell count reference ranges are not reported, since discordance with absolute values may lead to misinterpretation of CBC data. Current Interpretive Data was last revised on 2017. Lymphocyte pct 21.9 % [facility] Comment: Interpretive Data Percent cell count reference ranges are not reported, since discordance with absolute values may lead to misinterpretation of CBC data. Current Interpretive Data was last revised on 2017. Monocyte pct 8.5 % [facility] Comment: Interpretive Data Percent cell count reference ranges are not reported, since discordance with absolute values may lead to misinterpretation of CBC data. Current Interpretive Data was last revised on 2017. Eosinophil pct 2.3 % [facility] Comment: Interpretive Data Percent cell count reference ranges are not reported, since discordance with absolute values may lead to misinterpretation of CBC data. Current Interpretive Data was last revised on 2017. Basophil pct 0.3 % [facility] Comment: Interpretive Data Percent cell count reference ranges are not reported, since discordance with absolute values may lead to misinterpretation of CBC data. Current Interpretive Data was last revised on 2017. Blood 05/23/2024 2:30 AM FIRE CONTROL MECHANIC 05/23/2024 1:03 AM FIRE CONTROL MECHANIC Naila Guzman AUDIO VISUAL SECRETARY LAB BLOOD ORDERABLES Final Result Performing Organization Address City/State/[facility] Co de Phone Number [facility] [place] [address] * (ABNORMAL) CBC with auto differential (05/23/2024 2:30 AM FIRE CONTROL MECHANIC) WBC 11.9(H) 3.8 - 9.9 K/cumm Hgb 12.8 11.9 - 15.5 g/dL [facility] Hct 39.6 35.6 - 45.5 % [facility] Plt 254 150 - 400 K/cumm [facility] MPV 9.7 9.1 - 12.3 fL [facility] RBC 4.43 3.90 - 5.20 M/cumm [facility] MCV 89.4 81.3 - 96.4 fL [facility] MCH 28.9 27.1 - 33.3 pg [facility] MCHC 32.3 32.3 - 35.7 g/dL [facility] RDW CV 13.7 11.1 - 14.9 % [facility] RDW SD 44.6 35.7 - 48.1 fL [facility] NRBC abs 0.00 0.00 - 0.01 K/cumm [facility] Blood 05/23/2024 2:30 AM FIRE CONTROL MECHANIC 05/23/2024 1:03 AM FIRE CONTROL MECHANIC us Naila Guzman NP LAB BLOOD ORDERABLES Final Result Performing Organization Address [facility] Co de Phone Number [facility] [place] [address] * eGFR (05/23/2024 12:42 AM FIRE CONTROL MECHANIC) eGFR 84 >=60 mL/min/1. 73 m2 Comment: [...] reviewed 2021. Blood 05/23/2024 12:4 2 AM FIRE CONTROL MECHANIC 05/23/2024 1:02 AM FIRE CONTROL MECHANIC us Naila Guzman NP LAB BLOOD ORDERABLES Final Result Performing Organization Address City/[facility]/ZIP Co de Phone Number [facility] [place] [address] * Type and screen (05/23/2024 12:42 AM FIRE CONTROL MECHANIC) ABO Rh O Positive Dilcia, indirect Negative [facility] Blood 05/23/2024 12:4 2 AM FIRE CONTROL MECHANIC 05/23/2024 12:52 AM FIRE CONTROL MECHANIC Narrative [facility] - 05/23/2024 1:53 AM FIRE CONTROL MECHANIC Has the patient had Daratumumab or Isatuximab in the past 6 months?->Unknown Naila Guzman NP LAB BLOOD BANK TEST ORDERA BLES Final Result Performing Organization Address City/[facility] Co de Phone Number [facility] [place] [address] * Uric acid (05/23/2024 12:42 AM FIRE CONTROL MECHANIC) Uric acid 5.5 2.5 - 7.0 mg/dL Blood 05/23/2024 12:4 2 AM FIRE CONTROL MECHANIC 05/23/2024 1:02 AM FIRE CONTROL MECHANIC Narrative [facility] - 05/23/2024 1:34 AM FIRE CONTROL MECHANIC Monday and only. Morning draw. . Naila Guzman NP LAB BLOOD ORDERABLES Final Result Performing Organization Address [facility] [place] [address] * Phosphorus (05/23/2024 12:42 AM FIRE CONTROL MECHANIC) Phosphorus, pl 4.4 2.3 - 4.5 mg/dL Blood 05/23/2024 12:4 2 AM FIRE CONTROL MECHANIC 05/23/2024 1:02 AM FIRE CONTROL MECHANIC Naila Guzman NP LAB BLOOD ORDERABLES Final Result Performing Organization Address City/[facility] [place] [address] * Magnesium (05/23/2024 12:42 AM FIRE CONTROL MECHANIC) Magnesium 1.9 1.4 - 2.5 mg/dL Blood 05/23/2024 12:4 2 AM FIRE CONTROL MECHANIC 05/23/2024 1:02 AM FIRE CONTROL MECHANIC Naila Guzman NP LAB BLOOD ORDERABLES Final Result Performing Organization Address [facility] Co de Phone Number [facility] [place] [address] * Lactate dehydrogenase (LD) (05/23/2024 12:42 AM FIRE CONTROL MECHANIC) [facility] Lactate dehydrogenase (LDH) 247 100 - 250 Units/L Blood 05/23/2024 12:4 2 AM FIRE CONTROL MECHANIC 05/23/2024 1:02 AM FIRE CONTROL MECHANIC Narrative [facility] - 05/23/2024 1:34 AM FIRE CONTROL MECHANIC Monday and only. Morning draw. Naila Guzman NP LAB BLOOD ORDERABLES Final Result Performing Organization Address [facility] de Phone Number [facility] [place] [address] * Comprehensive metabolic panel (05/23/2024 12:42 AM FIRE CONTROL MECHANIC) [facility] Sodium 136 135 - 145 mmol/L Potassium, pl 4.3 3.3 - 4.9 mmol/L [facility] Chloride 101 97 - 110 mmol/L [facility] CO2 29 22 - 32 mmol/L [facility] Anion gap 6 2 - 15 mmol/L [facility] BUN 18 6 - 25 mg/dL [facility] Creatinine 0.77 0.60 - 1.10 mg/dL [facility] Glucose 194 70 - 199 mg/dL [facility] Comment: Interpretive Data Fasting glucose [...] 2022. Calcium 9.5 8.5 - 10.3 mg/dL [facility] Bilirubin, total 0.5 0.1 - 1.2 mg/dL [facility] Protein, pl 7.4 6.5 - 8.5 g/dL [facility] Albumin 3.5 3.5 - 5.0 g/dL [facility] Alk phos 71 40 - 130 Units/[facility] ALT 19 7 - 45 Units/L [facility] AST 22 10 - 45 Units/L [facility] Blood 05/23/2024 12:4 2 AM FIRE CONTROL MECHANIC 05/23/2024 1:02 AM FIRE CONTROL MECHANIC us Naila Guzman NP LAB BLOOD ORDERABLES Final Result Performing Organization Address [facility] de Phone Number [facility] Department [place] [address] * (ABNORMAL) POCT glucose (05/22/2024 8:56 PM FIRE CONTROL MECHANIC) Glucose, POC 210(H) 70 - 199 mg/dL Blood 05/22/2024 8:56 PM FIRE CONTROL MECHANIC 05/22/2024 8:56 PM FIRE CONTROL MECHANIC us Cem Knapp MD LAB POCT ORDERABLES - DEVIC E Final Result Performing Organization Address [facility] de Phone Number [facility] Department [place] [address] * POCT glucose (05/22/2024 6:09 PM FIRE CONTROL MECHANIC) Glucose, POC 142 70 - 199 mg/dL Blood 05/22/2024 6:09 PM FIRE CONTROL MECHANIC 05/22/2024 6:09 PM FIRE CONTROL MECHANIC us Leo Henry MD LAB POCT ORDERABLES - NILESH CE Final Result Performing Organization Address [facility] de Phone Number [facility] [place] [address] * POCT glucose (05/22/2024 4:26 PM FIRE CONTROL MECHANIC) Glucose, POC 133 70 - 199 mg/dL Blood 05/22/2024 4:26 PM FIRE CONTROL MECHANIC 05/22/2024 4:26 PM FIRE CONTROL MECHANIC us Leo Henry MD LAB POCT ORDERABLES - NILESH CE Final Result Performing Organization Address [facility] Co de Phone Number MARY JANE [facility] [place] [address] * CT Abdomen Pelvis W Contrast (05/22/2024 2:32 PM FIRE CONTROL MECHANIC) Anatomical Region Laterality Modality Body N/A Computed Tomogra phy 05/22/2024 4:35 PM FIRE CONTROL MECHANIC Impressions 05/22/2024 5:16 PM FIRE CONTROL MECHANIC No acute findings within the abdomen or pelvis. Dictated by: Yesi Mendes M.D. The radiology attending physician has personally reviewed this study, and had reviewed and/or edited this written report and agrees with it. Electronically signed by: Kelli Palmer M.D. Narrative 05/22/2024 5:16 PM FIRE CONTROL MECHANIC EXAMINATION: Computed tomography of the abdomen and [...] sult * POCT glucose (05/22/2024 12:58 PM FIRE CONTROL MECHANIC) Glucose, POC 177 70 - 199 mg/dL Blood 05/22/2024 12:5 8 PM FIRE CONTROL MECHANIC 05/22/2024 12:58 PM FIRE CONTROL MECHANIC Leo Henry MD LAB POCT ORDERABLES - NILESH CE Final Result Performing Organization Address [facility] Co de Phone Number [facility] Department of [place] [place] [address] * (ABNORMAL) POCT glucose (05/22/2024 9:29 AM FIRE CONTROL MECHANIC) Glucose, POC 291(H) 70 - 199 mg/dL Blood 05/22/2024 9:29 AM FIRE CONTROL MECHANIC 05/22/2024 9:29 AM FIRE CONTROL MECHANIC Leo Henry MD LAB POCT ORDERABLES - NILESH CE Final Result Performing Organization Address City/[facility]/ZIP Co de Phone Number [facility] Department of [place] [place] [address] * POCT glucose (05/22/2024 6:54 AM FIRE CONTROL MECHANIC) Glucose, POC 142 70 - 199 mg/dL Blood 05/22/2024 6:54 AM FIRE CONTROL MECHANIC 05/22/2024 6:54 AM FIRE CONTROL MECHANIC Jimmie Zavala MD LAB POCT ORDERABLES - DEVICE Fin al Result [facility] [place] [address] * CT Chest PE (CTA) W Contrast (05/22/2024 1:31 AM FIRE CONTROL MECHANIC) Anatomical Region Laterality Modality Body N/A Computed Tomogra phy 05/22/2024 2:38 AM FIRE CONTROL MECHANIC Impressions 05/22/2024 9:12 AM FIRE CONTROL MECHANIC No pulmonary embolism. Dictated by: Miguel Milligan MD The radiology attending physician has personally reviewed this study, and had reviewed and/or edited this written report and agrees with it. Electronically signed by: Jayson Rockwell M.D. Narrative 05/22/2024 9:12 AM FIRE CONTROL MECHANIC EXAMINATION: CT CHEST PE (CTA) W CONTRAST [...] Result * D-dimer, quantitative (05/22/2024 12:24 AM FIRE CONTROL MECHANIC) D-Dimer 414 <=499 ng/mL FEU Comment: Interpretive [...] on 2019. Blood 05/22/2024 12:2 4 AM FIRE CONTROL MECHANIC 05/22/2024 12:42 AM FIRE CONTROL MECHANIC Angeline Soler MD LAB BLOOD ORDERABLES F inal Result Performing Organization Address [facility] de Phone Number [facility] Department [place] [address] * Troponin I high-sensitivity 2-hour (05/21/2024 11:09 PM FIRE CONTROL MECHANIC) Trop I hs 5 <=17 ng/L Comment: Interpretive Data For further hscTnI resources including the diagnostic algorithm and an aid in interpretation, copy and paste this link: https://bjhlab.testcatalog.org/show/hsTrop-1 Current Interpretive Data last revised 2019. Trop I hs delta See Comment ng/L [facility] Comment:Inappropriate collec tion time to report a delta. Trop I hs pct delta See Comment % [facility] Comment:Inappropriate collec tion time to report a delta. Trop I hs interp See Comment [facility] Comment:Inappropriate collec tion time to report a delta. Blood 05/21/2024 11:0 9 PM FIRE CONTROL MECHANIC 05/21/2024 11:26 PM FIRE CONTROL MECHANIC Cira [place] MD LAB BLOOD ORDERABL ES Final Result Performing Organization Address [facility] Co de Phone Number [facility] Department [place] [address] * (ABNORMAL) Urinalysis reflex to microscopic and culture Urine (05/21/2024 11:09 PM FIRE CONTROL MECHANIC) Pathologist [facility] Color, ur Yellow Yellow Clarity, ur Clear Clear [facility] Specific gravity, ur 1.025 1.003 - 1.030 [facility] pH, urine 6.0 [facility] Comment: Interpretive Data U rine pH is affected by diet, medications, systemic acid-base disturbances, and renal tubular function. pH may affect urinary stone formation. For example, urine pH below 6.0 may help reduce the tendency for calcium phosphate stones and pH greater than 6.0 may reduce the tendency for uric acid stone formation. Source: [facility] Current Interpretive Data was last revised on 2017 Protein, ur ql 1+(A) Negative [facility] Glucose, ur ql Negative Negative [facility] Ketones, ur Negative Negative [facility] Bilirubin, ur Negative Negative [facility] Blood, ur Trace(A) Negative [facility] Urobilinogen, ur <2.0 <2.0 mg/dL [facility] Nitrite, ur Positive(A) Negative [facility] Leukocyte esterase, ur 1+(A) Negative [facility] UA reflex comment Reflex to microscopic UA will be performed. [facility] Urine 05/21/2024 11:0 9 PM FIRE CONTROL MECHANIC 05/21/2024 11:22 PM FIRE CONTROL MECHANIC us Angeline Soler MD LAB MICROBIOLOGY - GEN ERAL ORDERABLES Final Result [facility] [place] [address] * Respiratory pathogen panel Nasopharyngeal (05/21/2024 11:09 PM FIRE CONTROL MECHANIC) Pathologist [facility] Influenza A RNA Not Detected Not Detected Influenza B RNA Not Detected Not Detected [facility] RSV RNA Not Detected Not Detected [facility] COVID-19 RNA Not Detected Not Detected [facility] Coronavirus 229E RNA Not Detected Not Detected [facility] Coronavirus HKU1 RNA Not Detected Not Detected [facility] Coronavirus NL63 RNA Not Detected Not Detected [facility] Coronavirus OC43 RNA Not Detected Not Detected [facility] Adenovirus DNA Not Detected Not Detected [facility] Metapneumovirus RNA Not Detected Not Detected [facility] Rhinovirus/Enterov irus RNA Not Detected Not Detected [facility] Parainfluenza 1 RNA Not Detected Not Detected [facility] Parainfluenza 2 RNA Not Detected Not Detected [facility] Parainfluenza 3 RNA Not Detected Not Detected [facility] Parainfluenza 4 RNA Not Detected Not Detected [facility] B. pertussis DNA Not Detected Not Detected [facility] B. parapertussis DNA Not Detected Not Detected [facility] C. pneumoniae DNA Not Detected Not Detected [facility] M. pneumoniae DNA Not Detected Not Detected [facility] Nasopharyngeal 05/21/2024 11 :09 PM FIRE CONTROL MECHANIC 05/22/2024 4:48 AM FIRE CONTROL MECHANIC Narrative [facility] - 05/22/2024 5:55 AM FIRE CONTROL MECHANIC Is the Patient experiencing symptoms consistent with COVID?->No Surveillance testing for transplant patient?->No Interpretive Data The KlickEx FilmArray Respiratory Panel (RP2.1) assay is a [...] assay has FDA clearance for testing of AUDIO VISUAL SECRETARY swabs. The performance of additional specimen types has been assessed by the performing laboratory. The performance characteristics of this assay have been determined by [facility] Infectious Disease [facility]. Current interpretive data was last revised on 22. Angeline Soler MD LAB MICROBIOLOGY - GEN ERAL ORDERABLES Final Result Performing Organization Address City/[facility]/ZIP Co de Phone Number [facility] Department [place] [address] * (ABNORMAL) Urinalysis, microscopic only (05/21/2024 11:09 PM FIRE CONTROL MECHANIC) WBC, ur 11-20(A) 0 - 5 /HPF RBC, ur 3-5(A) 0 - 2 /HPF [facility] Epithelial cells, squamous, ur 1-5 0 - 5 /HPF [facility] Bacteria, ur 3+(A) [facility] Yeast, ur Trace(A) [facility] Mucous, ur Present(A) [facility] Culture Reflex Comment Reflex to urine culture will be performed. [facility] Urine 05/21/2024 11:0 9 PM FIRE CONTROL MECHANIC 05/21/2024 11:21 PM FIRE CONTROL MECHANIC Angeline Soler MD LAB URINE ORDERABLES F inal Result Performing Organization Address City/[facility] Co de Phone Number [facility] Department [place] [address] * (ABNORMAL) Urine culture Urine (05/21/2024 11:09 PM FIRE CONTROL MECHANIC) Report Amended Report - Complete: Greater than or equal to 100,000 colonies/mL of Escherichia coli Plus growth of clinically insignificant bacterial yesenia. (.) Organism ESCHERICHIA COLI [facility] Organism PLUS GROWTH OF CLINICALLY INSIGNIFICANT YESENIA. [facility] Urine 05/21/2024 11:0 9 PM FIRE CONTROL MECHANIC 05/22/2024 2:40 AM FIRE CONTROL MECHANIC Narrative [facility] - 05/25/2024 10:36 AM FIRE CONTROL MECHANIC Urine culture reflexed based upon urinalysis results. Testing performed by [facility] ([phone]) Organism Antibiotic Method Susceptibility Escherichia coli Ampicillin [...] GEN ERAL ORDERABLES Edited Result - Final [facility] Department [place] [address] * POCT glucose (05/21/2024 8:55 PM FIRE CONTROL MECHANIC) Glucose, POC 139 70 - 199 mg/dL Blood 05/21/2024 8:55 PM FIRE CONTROL MECHANIC 05/21/2024 8:55 PM FIRE CONTROL MECHANIC Notinfile Unknown LAB POCT ORDERABLES - DEVICE F inal Result Performing Organization Address [facility] Co de Phone Number [facility] [place] [address] * Troponin I high-sensitivity 4-hour (05/21/2024 7:26 PM FIRE CONTROL MECHANIC) Trop I hs 4 <=17 ng/L Comment: Interpretive Data For further hscTnI resources including the diagnostic algorithm and an aid in interpretation, copy and paste this link: https://[employer] Direct.SharesVault.org/show/hsTrop-1 Current Interpretive Data last revised 2019. Trop I hs delta -1 ng/L [facility] Trop I hs interp Insignificant [facility] Blood 05/21/2024 7:26 PM FIRE CONTROL MECHANIC 05/21/2024 7:37 PM FIRE CONTROL MECHANIC Cira Castro MD LAB BLOOD ORDERABL ES Final Result Performing Organization Address [facility] Co de Phone Number [facility] [place] [address] * Troponin I high-sensitivity series (baseline, 2hr, 4hr, 6hr) (05/21/2024 4:20 PM FIRE CONTROL MECHANIC) Trop I hs 5 <=17 ng/L Comment: Interpretive Data For further hscTnI resources including the diagnostic algorithm and an aid in interpretation, copy and paste this link: https://[employer] Direct.SharesVault.org/show/hsTrop-1 Current Interpretive Data last revised 2019. Blood 05/21/2024 4:20 PM FIRE CONTROL MECHANIC 05/21/2024 4:50 PM FIRE CONTROL MECHANIC Jimmie Zavala MD LAB BLOOD ORDERABLES Final Resul t Performing Organization Address [facility]/ZIP Co de Phone Number [facility] [place] [address] * eGFR (05/21/2024 4:20 PM FIRE CONTROL MECHANIC) Pathologist [facility] eGFR >90 >=60 mL/min/1. 73 m2 Comment: [...] last reviewed 2021. Blood 05/21/2024 4:20 PM FIRE CONTROL MECHANIC 05/21/2024 4:50 PM FIRE CONTROL MECHANIC us Jimmie Zavala MD LAB BLOOD ORDERABLES Final Resul t [facility] [place] [address] * (ABNORMAL) Differential, auto (05/21/2024 4:20 PM FIRE CONTROL MECHANIC) Pathologist [facility] Neutrophil abs 8.0(H) 1.5 - 6.5 K/cumm Imm gran abs 0.0 0.0 - 0.1 K/cumm [facility] Lymphocyte abs 2.4 0.8 - 3.3 K/cumm [facility] Monocyte abs 0.8 0.2 - 0.8 K/cumm [facility] Eosinophil abs 0.2 0.0 - 0.5 K/cumm [facility] Basophil abs 0.0 0.0 - 0.1 K/cumm [facility] Neutrophil pct 69.4 % [facility] Comment: Interpretive Data Percent cell count reference ranges are not reported, since discordance with absolute values may lead to misinterpretation of CBC data. Current Interpretive Data was last revised on 2017. Imm gran pct 0.4 % [facility] Comment: Interpretive Data Percent cell count reference ranges are not reported, since discordance with absolute values may lead to misinterpretation of CBC data. Current Interpretive Data was last revised on 2017. Lymphocyte pct 21.4 % [facility] Comment: Interpretive Data Percent cell count reference ranges are not reported, since discordance with absolute values may lead to misinterpretation of CBC data. Current Interpretive Data was last revised on 2017. Monocyte pct 6.7 % [facility] Comment: Interpretive Data Percent cell count reference ranges are not reported, since discordance with absolute values may lead to misinterpretation of CBC data. Current Interpretive Data was last revised on 2017. Eosinophil pct 1.8 % [facility] Comment: Interpretive Data Percent cell count reference ranges are not reported, since discordance with absolute values may lead to misinterpretation of CBC data. Current Interpretive Data was last revised on 2017. Basophil pct 0.3 % [facility] Comment: Interpretive Data Percent cell count reference ranges are not reported, since discordance with absolute values may lead to misinterpretation of CBC data. Current Interpretive Data was last revised on 2017. Blood 05/21/2024 4:20 PM FIRE CONTROL MECHANIC 05/21/2024 4:50 PM FIRE CONTROL MECHANIC us Jimmie Zavala MD LAB BLOOD ORDERABLES Final Resul t [facility] [place] [address] * (ABNORMAL) CBC with auto differential (05/21/2024 4:20 PM FIRE CONTROL MECHANIC) WBC 11.4(H) 3.8 - 9.9 K/cumm Hgb 14.0 11.9 - 15.5 g/dL [facility] Hct 43.6 35.6 - 45.5 % [facility] Plt 286 150 - 400 K/cumm [facility] MPV 9.9 9.1 - 12.3 fL [facility] RBC 4.83 3.90 - 5.20 M/cumm [facility] MCV 90.3 81.3 - 96.4 fL [facility] MCH 29.0 27.1 - 33.3 pg [facility] MCHC 32.1(L) 32.3 - 35.7 g/dL [facility] RDW CV 13.6 11.1 - 14.9 % [facility] RDW SD 45.6 35.7 - 48.1 fL [facility] NRBC abs 0.00 0.00 - 0.01 K/cumm [facility] Blood Venous blood specimen / Unknown 05/21/2024 4:20 PM FIRE CONTROL MECHANIC 05/21/2024 4:50 PM FIRE CONTROL MECHANIC us Jimmie Zavala MD LAB BLOOD ORDERABLES Final Resul t Performing Organization Address City/[facility]/ZIP Co de Phone Number [facility] [place] [address] * (ABNORMAL) Hemoglobin A1c (05/21/2024 4:20 PM FIRE CONTROL MECHANIC) [facility] Hgb A1C 8.7(H) 4.0 - 5.6 % Estimated Average Glucose 203 mg/dL [facility] Comment: The ADA recommends reporting an estimated Average Glucose (eAG) with all Hemoglobin A1c results using the equation derived from a study of 507 normal and diabetic adults. Minority populations were underrepresented and children were not included. (Diabetes Care 2020; 43(S1): S66-S76). The eAG is not equivalent to a fasting glucose. Blood 05/21/2024 4:20 PM FIRE CONTROL MECHANIC 05/21/2024 4:55 PM FIRE CONTROL MECHANIC us Leo Henry MD LAB BLOOD ORDERABLES Final Result Performing Organization Address City/[facility]/ZIP Co de Phone Number [facility] [place] [place] [address] * (ABNORMAL) Lipid panel (05/21/2024 4:20 PM FIRE CONTROL MECHANIC) Cholesterol 205(H) 30 - 199 mg/dL Comment: [...] 2017. Triglycerides 92 <=149 mg/dL [facility] Comment: Interpretive Data Ages < or [...] 2017. HDL 55 >=40 mg/dL [facility] Comment: Interpretive Data Ages < or [...] LDL, calculated 134(H) <=129 mg/dL [facility] Comment: Interpretive Data [...] revised on 2023. Non-HDL Cholesterol 150 mg/dL [facility] Comment: Interpretive Data Ages < [...] last revised on 2017. Chol/HDL ratio 4 [facility] Blood 05/21/2024 4:20 PM FIRE CONTROL MECHANIC 05/21/2024 4:50 PM FIRE CONTROL MECHANIC Narrative [facility] - 05/22/2024 4:17 PM FIRE CONTROL MECHANIC Reflex us Leo Henry MD LAB BLOOD ORDERABLES Final Result [facility] Department [place] [address] * Comprehensive metabolic panel (05/21/2024 4:20 PM FIRE CONTROL MECHANIC) Sodium 140 135 - 145 mmol/L Potassium, pl 4.3 3.3 - 4.9 mmol/L [facility] Chloride 100 97 - 110 mmol/L [facility] CO2 29 22 - 32 mmol/L [facility] Anion gap 11 2 - 15 mmol/L [facility] BUN 14 6 - 25 mg/dL [facility] Creatinine 0.63 0.60 - 1.10 mg/dL [facility] Glucose 119 70 - 199 mg/dL [facility] Comment: Interpretive Data Fasting glucose [...] 2022. Calcium 10.0 8.5 - 10.3 mg/dL [facility] Bilirubin, total 0.7 0.1 - 1.2 mg/dL [facility] Protein, pl 8.5 6.5 - 8.5 g/dL [facility] Albumin 3.9 3.5 - 5.0 g/dL [facility] Alk phos 83 40 - 130 Units/L [facility] ALT 23 7 - 45 Units/L [facility] AST 22 10 - 45 Units/L [facility] Blood 05/21/2024 4:20 PM FIRE CONTROL MECHANIC 05/21/2024 4:50 PM FIRE CONTROL MECHANIC us Jimmie Zavala MD LAB BLOOD ORDERABLES Final Resul t [facility] Department of Laboratories [place], [place] [id number] * XR Chest Pa Lateral 2 Views (05/21/2024 2:23 PM FIRE CONTROL MECHANIC) Anatomical Region Laterality Modality Body, Chest N/A Computed Radiogr aphy 05/21/2024 2:28 PM FIRE CONTROL MECHANIC Impressions 05/21/2024 2:36 PM FIRE CONTROL MECHANIC The current study is compared with the [...] Jaime Neves M.D. Narrative 05/21/2024 2:36 PM FIRE CONTROL MECHANIC EXAMINATION: 2 view chest radiograph Procedure Note [...] Result * POCT glucose (05/21/2024 1:39 PM FIRE CONTROL MECHANIC) [facility] Signature Glucose, POC 113 70 - 199 mg/dL Blood 05/21/2024 1:39 PM FIRE CONTROL MECHANIC 05/21/2024 1:39 PM FIRE CONTROL MECHANIC us Notinfile Unknown LAB POCT ORDERABLES - DEVICE F inal Result [facility] Department [place] [address] * ECG 12-LEAD (05/21/2024 1:36 PM FIRE CONTROL MECHANIC) Narrative [facility] - 05/21/2024 1:36 PM FIRE CONTROL MECHANIC Gil Mcgrath MD 05/21/2024 1:37 PM ECG [...] in the ED Gil Mcgrath MD 05/21/24 1337 Jimmie Zavala MD ECG ORDERABLES Final Result [facility] * Axillary Breast Left (05/21/2024 12:13 PM FIRE CONTROL MECHANIC) Anatomical Region Laterality Modality Upper Extremities Left Ultrasound 05/21/2024 12:2 3 PM FIRE CONTROL MECHANIC Impressions 05/21/2024 12:23 PM FIRE CONTROL MECHANIC 1. Limited ultrasound due to extensive edema [...] Alicia Wilcox M.D. Narrative 05/21/2024 12:23 PM FIRE CONTROL MECHANIC EXAMINATION: LEFT AXILLARY ULTRASOUND HISTORY: Patient is [...] culture Urine, clean voided (05/14/2024 4:50 PM FIRE CONTROL MECHANIC) Color, ur Straw Yellow Clarity, ur Clear Clear [facility] Specific gravity, ur 1.025 1.003 - 1.030 [facility] pH, urine 5.5 [facility] Comment: Interpretive Data U rine pH is affected by diet, medications, systemic acid-base disturbances, and renal tubular function. pH may affect urinary stone formation. For example, urine pH below 6.0 may help reduce the tendency for calcium phosphate stones and pH greater than 6.0 may reduce the tendency for uric acid stone formation. Source: [facility] [employer] Current Interpretive Data was last revised on 2017 Protein, ur ql Trace Negative [facility] Glucose, ur ql Negative Negative [facility] Ketones, ur Negative Negative [facility] Bilirubin, ur Negative Negative [facility] Blood, ur Trace(A) Negative [facility] Urobilinogen, ur <2.0 <2.0 mg/dL [facility] Nitrite, ur Negative Negative [facility] Leukocyte esterase, ur Negative Negative [facility] UA reflex comment Reflex to microscopic UA will be performed. [facility] Urine, clean voided 05/14/2024 4:50 PM FIRE CONTROL MECHANIC 05/14/2024 7:18 PM FIRE CONTROL MECHANIC Khris Arthur MD LAB MICROBIOLOGY - G ENERAL ORDERABLES Final Result [facility] [place] [address] * (ABNORMAL) Urinalysis, microscopic only (05/14/2024 4:50 PM FIRE CONTROL MECHANIC) WBC, ur 0-5 0 - 5 /HPF RBC, ur 0-2 0 - 2 /HPF [facility] Epithelial cells, squamous, ur 1-5 0 - 5 /HPF [facility] Bacteria, ur Trace(A) [facility] Mucous, ur Present(A) [facility] Culture Reflex Comment Reflex conditions for urine culture (WBC >10) not met. [facility] Urine, clean voided 05/14/2024 4:50 PM FIRE CONTROL MECHANIC 05/14/2024 7:18 PM FIRE CONTROL MECHANIC us Khris Arthur MD LAB URINE ORDERABLES Final Result [facility] [place] [address] * XR Ribs Left 2 Views (05/14/2024 4:44 PM FIRE CONTROL MECHANIC) Anatomical Region Laterality Modality Rib, Chest Left Digital Radiogra phy 05/14/2024 4:54 PM FIRE CONTROL MECHANIC Impressions 05/14/2024 4:54 PM FIRE CONTROL MECHANIC 1. No displaced left rib fracture. Electronically signed by: Santiago Gan D.O. Narrative 05/14/2024 4:54 PM FIRE CONTROL MECHANIC EXAMINATION: XR RIBS LEFT 2 VIEWS HISTORY: [...] Bone mineral density was performed on a [employer] Discovery Densitometer. Based on machine cross-calibration and [...] density scan were prepared by Yesenia Tineo(Gwendolyn) CBDHeydi who is accredited by the International Society of Clinical Densitometry. The overall patient assessment and scan interpretation were performed by Kaylie Castro MD who is certified by the International Society of Clinical Densitometry. [id number] Khris Arthur MD IMG DXA PROCEDURES F [...] agrees with it. ACC# Date Time Exam [id number] Aug 19, 2016 14:27:00 [facility] [place] [address] Diag Mamm, inc CAD, unilat L Technologist(s): Carla Harris; ; [id number] Aug 19, 2016 15:39:00 [facility] [place] [address] Breast US unilateral, ltd L ACC# Date Time Exam [id number] Aug 19, 2016 14:27:00 C 25719 Diag Mamm, inc CAD, unilat L Technologist(s): Carla Harris; ; [id number] Aug 19, 2016 15:39:00 [facility] [place] [address] Breast US unilateral, ltd L EXAMINATION: LEFT [...] SARABIA M.D. on Aug 19 2016 4:20P [id number] Procedure Note Miscellaneous, Not In File / Provider, MD Tyler - 09/17/2016 ANTHONY SARABIA M.D. JUDY RINCON M.D. FINAL REPORT The radiology attending physician has personally reviewed this study, and has reviewed and/or edited this written report and agrees with it. ACC# Date Time Exam [id number] Aug 19, 2016 14:27:00 [facility] [place] [address] Diag Mamm, inc CAD, unilat L Technologist(s): Carla Harris; ; [id number] Aug 19, 2016 15:39:00 C 16967 Breast US unilateral, ltd L ACC# Date Time Exam [id number] Aug 19, 2016 14:27:00 C 00204 Diag Mamm, inc CAD, unilat L Technologist(s): Carla Harris; ; [id number] Aug 19, 2016 15:39:00 C [address]642 Breast US unilateral, ltd L EXAMINATION: LEFT [...] SARABIA M.D. on Aug 19 2016 4:20P [id number] us Not In File Miscellaneous IMG MAMMO PROCEDURES F inal Result from Last 3 Months or Most Recently Relevant to Health Maintenance Insurance [facility] ADVANTAGE [facility] ADVANTAGE [facility] ADVANTAGE Advance Directives For more information, please contact: [phone] Documents on File Type Date Recorded Patient Certified Professional Controller Expl anation ADVANCE DIRECTIVE 12/23/2021 2:49 PM Power of Diamond Broker-Medical ADVANCE DIRECTIVE 12/23/2021 2:49 PM Living Will [...] First Alternate Health Care Agent Care Teams Blood Bank Booking Clerk Relationship Specialty Start Date End Date Justen Gale MD [address] [address] PCP - General 10/09/17 Liu Jerez MD Consulting Physician Gastroenterology 07/28/17 [place] [address] [facility] [address] [place] [address] Consulting Physician Pulmonary Disease 08/03/17 Khris Arthur MD [address] [facility] [address] [place] [address] Medical Oncologist/Blood Donor Recruiter Supervisor Medical Oncology 10/23/17 [place] [address] [facility] [address] [place] [address] Surgeon Orthopedic Surgery 10/23/17 [place] [address] [facility] [address] [place] [address] Consulting Physician Pain Management 10/23/17 [place] [address] [facility] [address] [place] [address] Referring Physician General Surgery 01/26/18 [place] [address] [facility] [address] [place] [address] Consulting Physician Neurology 01/26/18
--- OUTSIDE RECORDS SUMMARY | 2024-07-21 21:50 | XMS_ITS ---
Author Organization [facility] Address [address] [place] [id number] Care Team Providers Care Transfer Coordinator Name Role Phone Liu Jerez MD Unavailable Albert Corbin MD Unavailable Justen Gale MD Primary Care Provider Khris Arthur MD Unavailable [phone] Ko Melendez MD Unavailable John Paul Moyer MD Unavailable Annel Rod MD Unavailable Anali MARSHALL MD, Carlos M. 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 10/17/2019 Thyroid [...] complication, without long-term current use of insulin ([facility]) 10/23/2017 Assessment & Plan (10/23/2017 2:06 AM [...] 10/13/2017 Assessment & Plan (05/22/2024 12:29 PM SAFETY LAMP KEEPER): -Hx stage II, ER positive, HER2 negative [...] 08/01/2017 Assessment & Plan (05/22/2024 12:33 PM SAFETY LAMP KEEPER): -Hx LUL -Hospital provided CPAP ordered History of DVT (deep vein thrombosis) 08/01/2017 History of pulmonary embolism 08/01/2017 Generalized weakness 07/27/2017 Dyspnea 07/27/2017 Unintentional weight loss 07/27/2017 Acute cystitis without hematuria 07/27/2017 Nausea and vomiting 07/26/2017 Overview (07/28/2017): Added automatically from request for surgery [id number] Pulmonary embolism 08/09/2016 Assessment & Plan (10/23/2017 2:05 AM CDT): On Rivaroxaban Lymphedema of left upper extremity 08/09/2016 Assessment & Plan (05/25/2024 7:53 AM SAFETY LAMP KEEPER): S/p L axillary lymph node dissection 2014, [...] syndrome Assessment & Plan (05/22/2024 11:18 AM SAFETY LAMP KEEPER): -continue home Requip 5mg nightly Pain of lower extremity 03/12/2013 Overview (07/29/2016): Leg pain Essential hypertension Assessment & Plan (05/23/2024 10:42 AM SAFETY LAMP KEEPER): -Chart history of HTN but not on meds -BP elevated on admission, likely some pain contributing -Monitor closely once pain under adequate control, discussed following up with PCP for this Chronic anticoagulation Restless leg syndrome 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 Type 2 diabetes mellitus without complication Assessment & Plan (05/24/2024 1:39 PM SAFETY LAMP KEEPER): -Last Ha1c 8.4 in 2023, repeat 8.7 [...] left female breast, unspecified estrogen receptor status (HCC)correction (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
[2024-07-21 21:51] VITALS: BP 154/64; PULSE 93; RESP 20; TEMP 36.2; O2SAT 99
--- OUTSIDE RECORDS SUMMARY | 2024-07-21 21:51 | XMS_ITS | Encounter Summary ---
Author Organization [facility] Address [address] [place] [address] Phone Care Team Providers Care Fare Register Repairer Name Role Phone Lavonne Hathaway MD Primary Care Provider + [phone] Liu Jerez MD Unavailable [phone] Albert Corbin MD Unavailable [phone] Justen Gale MD Primary Care Provider + [phone] Lavonne Hathaway MD Primary Care Provider + [phone] Justen Gale MD Primary Care Provider + [phone] Khris Arthur MD Unavailable + [phone] Ko Melendez MD Unavailable [phone] John Paul Moyer MD Unavailable Annel Rod MD Unavailable Anali MARSHALL MD, Carlos M. Unavailable [phone] Encounter Details Date Type Department Care Team ([facility] Contact Info) Description 05/15/2017 Orders Only [facility] Scanning, Provider Social History Tobacco Use Types Packs/Day Years Used Date Smoking Tobacco: Former Alcohol Use Standard Drinks/Week Comments No 0 (1 standard drink = 0.6 oz pur e alcohol) Comments Unknown Sex and Gender Information Value Date Recorded Sex Assigned at Not on file Legal Sex Female 12:24 AM HEALTHCARE FACILITY ADMINISTRATOR Gender Identity Not on file Sexual [...] COVID: Recovered 02/10/2022 02/10/2022 06/10/2022 3:05 AM HEALTHCARE FACILITY ADMINISTRATOR Exposure, COVID-19 Comment:Added automatically based on COVID19 lab answers indicating exposure risk 02/11/2022 02/11/2022 02/15/2022 9:06 AM C DT COVID: Suspected 05/14/2022 05/14/2022 05/14/2022 10:41 AM HEALTHCARE FACILITY ADMINISTRATOR COVID: Suspected 06/07/2022 06/07/2022 06/07/2022 12:28 PM HEALTHCARE FACILITY ADMINISTRATOR COVID: Suspected 06/21/2022 06/21/2022 06/21/2022 2:12 AM HEALTHCARE FACILITY ADMINISTRATOR COVID: Suspected 10/05/2022 10/05/2022 10/05/2022 7:40 PM CDT COVID: Suspected 01/04/2024 01/04/2024 01/04/2024 10:30 PM CDT COVID: Suspected 02/14/2024 02/14/2024 02/15/2024 12:36 AM CDT COVID: Suspected 07/01/2024 07/01/2024 07/01/2024 2:53 PM CDT COVID: Suspected 07/01/2024 07/01/2024 07/02/2024 3:05 AM CDT documented as of this encounter Care Teams Fare Register Repairer Relationship Specialty Start Date End Date Lavonne Hathaway MD [address] [place] [address] [place] [address] PCP - General 08/16/16 08/17/17 Justen Gale MD [address] [facility] [address] [address] PCP - General 08/18/17 08/22/17 Lavonne Hathaway MD [address] [place] [address] [place] [address] PCP - General Family Medicine 08/23/17 10/08/17 Justen Gale MD 2 [facility] [place] [address] [address] PCP - General 10/09/17 Liu Jerez MD [address] [place] [address] [place] [address] Consulting Physician Gastroenterology 07/28/17 [place] [address] [facility] [address] [place] [address] Consulting Physician Pulmonary Disease 08/03/17 Khris Arthur MD [address] [facility] [address] [place] [address] Medical Oncologist/Irrigation District Manager Medical Oncology 10/23/17 [place] [address] [facility] [address] [place] [address] Surgeon Orthopedic Surgery 10/23/17 [place] [address] [facility] [address] [place] [address] Consulting Physician Pain Management 10/23/17 [place] [address] [facility] [address] [place] [address] Referring Physician General Surgery 01/26/18 [place] [address] [facility] [address] [place] [address] Consulting Physician Neurology 01/26/18 documented as of this encounter
--- OUTSIDE RECORDS SUMMARY | 2024-07-21 21:51 | XMS_ITS | Encounter Summary ---
Author Organization [facility] Address [address] [place] [address] Phone Care Team Providers Care Stud Dairy Cattle Farmer Name Role Phone Justen Gale MD Primary Care Provider [phone] David Roberts APRN, HOTEL ASSISTANT GENERAL MANAGER Unavailable [phone] Annel Rod MD Unavailable Reason for Visit * Reason Comments Medication Refill Encounter Details Date Type Department Care Team (Late st Contact Info) Description 02/07/2023 Refill [facility] [address] [place] [address] Catrina Quiñonez MD [address] [place] [address] Medication Refill Social History Tobacco Use Types [...] Mcgee 05/02/22 Office Visit [facility] [place] 03/03/22 Office Visit Pili Elkins APRN, NETTA [facility] [place] Showing recent visits within past 365 [...] documented as of this encounter Care Teams Stud Dairy Cattle Farmer Relationship Specialty Start Date End Date Justen Gale MD #[address] [address] PCP - General Family Medicine 10/17/17 David Roberts APRN, HOTEL ASSISTANT GENERAL MANAGER [address] [place] [address] Nurse Practitioner Advanced Practice Nurse 01/31/22 Annel Rod MD #[address] [address] Consulting Physician Endocrinology 07/01/22 documented as of this encounter
--- OUTSIDE RECORDS SUMMARY | 2024-07-21 21:51 | XMS_ITS | Encounter Summary ---
Author Organization [facility] Address [address] [place] [address] Phone Care Team Providers Care Audit Intern Name Role Phone Justen Gale MD Primary Care Provider [phone] David Roberts APRN, SCRIBING MACHINE OPERATOR Unavailable [phone] Annel Rod MD Unavailable Reason for Visit * Reason Comments Medication Refill Encounter Details Date Type Department Care Team (Late st Contact Info) Description 03/02/2023 Refill [facility] - Family Medicine [facility] [address] [place] [id number] Justen Gale MD [address] [address] Medication Refill Social History Tobacco Use Types [...] Tamika Villarreal RN - 03/02/2023 8:51 AM GARAGE CONSTRUCTION EQUIPMENT MECHANIC Medication failed the protocol, provider to review [...] Dept 01/17/23 Office Visit Catrina [facility] 09/16/22 Office Visit Pili Elkins APRN, NETTA [facility] [place] 07/05/22 Office Visit Pili Elkins APRN, NETTA [facility] [place] 05/02/22 Office Visit Justen Gale MD [facility] 03/03/22 Office Visit Pili Elkins APRN, NETTA [facility] [place] Showing recent visits within past 365 days and meeting all other requirements Future Appointments No visits were found meeting these conditions. Showing future appointments within next 90 days and meeting all other requirements GE CONSTRUCTION EQUIPMENT MECHANIC documented in this encounter Plan of Treatment Not on file documented as of this encounter Visit Diagnoses Not on filedocumented in this encounter Additional Health Concerns Assessment Noted Time PHQ-9 Depression Total Score: 8 01/18/20 23 2:24 PM CDT documented as of this encounter Care Teams Audit Intern Relationship Specialty Start Date End Date Justen Gale MD #[address] [address] PCP - General Family Medicine 10/17/17 David Roberts APRN, NETTA [address] [place] [address] Nurse Practitioner Advanced Practice Nurse 01/31/22 Annel Rod MD #[address] [phone] Consulting Physician Endocrinology 07/01/22 documented as of this encounter
--- OUTSIDE RECORDS SUMMARY | 2024-07-21 21:51 | XMS_ITS | Encounter Summary ---
Author Organization [facility] Address [address] [place] [address] Phone Care Team Providers Care Assistant Pressman Name Role Phone Justen Gale MD Primary Care Provider [phone] David Roberts APRN, DIESEL ENGINE OPERATOR Unavailable [phone] Annel Rod MD Unavailable Reason for Visit * Reason Comments Medication Refill Encounter Details Date Type Department Care Team (Late st Contact Info) Description 02/07/2023 Refill [facility] [address]2 [place] [address] Pili Elkins APRN, DIESEL ENGINE OPERATOR #[address] [address] Medication Refill Social History Tobacco [...] Date Justen Gale MD #2 [facility] [address] [place] [address] PCP - General Family Medicine 10/17/17 David Roberts APRN, DIESEL ENGINE OPERATOR [address]2 [place] [address] Nurse Practitioner Advanced Practice Nurse 01/31/22 Annel Rod MD #2 [facility] [address] [place] [address] Consulting Physician Endocrinology 07/01/22 documented as of this encounter
--- OUTSIDE RECORDS SUMMARY | 2024-07-21 21:51 | XMS_ITS ---
Author Organization [facility] Address [address] [facility] [place] [address] Care Team Providers Care Bufferer Name Role Phone Justen Gale MD Primary Care Provider [phone] Active Problems Problem Noted Date Diagnosed Date [...] treatments are documented for this patient in [facility]. Treatments may have been administered in another system. Lifetime Dose Tracking * Chemical Lifetime Dose Automatic Entry Manual Entr y Dose Length Product 1,838 mGy-cm 1,838 mGy-cm 0 mGy-cm Resolved Problems Problem Noted Date Diagnosed Date Resolved Date Rash 03/21/2023 04/18/2023
--- OUTSIDE RECORDS SUMMARY | 2024-07-21 21:51 | XMS_ITS | Encounter Summary ---
Author Organization [facility] Address [address] [place] [address] Phone Care Team Providers Care Vending Machine Filler Name Role Phone Justen Gale MD Primary Care Provider [phone] David Roberts APRN, TRANSITION MANAGER Unavailable [phone] Annel Rod MD Unavailable Reason for Visit * Reason Onset Date Comments Medication Refill 08/06/2020 Encounter Details Date Type Department Care Team (Late st Contact Info) Description 08/06/2020 Refill [facility] - Family [facility] #2 [place] [id number] Justen Gale MD #[address] [address] Medication Refill Social History Tobacco Use Types [...] Outpatient Visits 2 weeks ago [facility] P[facility] Mueller APN, TRANSITION MANAGER 2 months ago Increased urinary frequency [facility] Pili Mueller ROVING CAN TENDER, TRANSITION MANAGER 5 months ago Urinary frequency [facility] Pili Mueller ROVING CAN TENDER, TRANSITION MANAGER 8 months ago Type 2 diabetes mellitus with diabetic polyneuropathy, with long- term current use of insulin (HCC) [facility] Pili Mueller ROVING CAN TENDER, TRANSITION MANAGER 9 months ago [facility] Upcoming Appointments Future Appointments In 6 days Pili Elkins APN, TRANSITION MANAGER [facility] Elias Mcgee [facility] SILVERWARE ASSEMBLER - Recent and Past Visits Recent Visits Date Type Provider Dept 07/20/20 Office Visit Pili Elkins APN, TRANSITION MANAGER [facility] [place] 06/05/20 Office Visit Pili Elkins APN, TRANSITION MANAGER [facility] [place] 02/17/20 Office Visit Pili Elkins APN, CNP [facility] [place] 12/03/19 Office Visit Pili Elkins APN, CNP [facility] [place] 11/05/19 Telemedicine Justen Gale MD [facility] 07/25/19 Tele[facility]icine [facility] within past 460 days [...] documented as of this encounter Care Teams Vending Machine Filler Relationship Specialty Start Date End Date Just[facility] Gale MD [facility] [address] [address] PCP - General Family Medicine 10/17/17 David Roberts APRN, CNP [address]2 [place] [address] Nurse Practitioner Advanced Practice Nurse 01/31/22 Annel Rod MD #[address] [address] Consulting Physician Endocrinology 07/01/22 documented as of this encounter
--- OUTSIDE RECORDS SUMMARY | 2024-07-21 21:51 | XMS_ITS | Referral Summary ---
Author Organization [facility] Address [address] [place] [id number] Care Team Providers Care Process Control Board Operator Name Role Phone Liu Jerez MD Unavailable Albert Corbin MD Unavailable Justen Gale MD Primary Care Provider Khris Arthur MD Unavailable [phone] Ko Melendez MD Unavailable John Paul Moyer MD Unavailable Annel Rod MD Unavailable Anali MARSHALL MD, Carlos M. Unavailable [phone] Encounters Date Type Department Care Team Description 07/01/2024 8:52 PM CDT - 07/01/2024 10:18 PM CDT Emergency [facility] Emergency Department [address] [place] [address] Myalgia (Primary Dx); Viral syndrome Discharge Disposition: Discharge to home or self care 05/30/2024 Orders Only [facility] Oncology [address] [facility] [address] [place] [address] Radha Mcgrath RN Lymphedema of left arm (Primary Dx); Malignant neoplasm of upper-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, unspecified estrogen receptor status (HCC); Malignant neoplasm of overlapping sites of left female breast, unspecified estrogen receptor status (HCC); Malignant neoplasm of female breast, unspecified estrogen receptor status, unspecified laterality, unspecified site of breast (HCC) 05/21/2024 9:12 PM SCREEN MAKING TECHNICIAN - 05/26/2024 6:45 PM SCREEN MAKING TECHNICIAN Hospital Encounter [address] [address] Jimmie Zavala MD Liss, MD Ra Parnell, MD Sebastian Claros, MD Carlos Left arm pain (Primary Dx); Left leg pain; Shortness of breath; Urinary tract infection without hematuria, site unspecified; Allergy to drug Discharge Disposition: Discharge to home or self care 05/24/2024 Telephone [facility] [address] [place] [address] Radha Warner RN 05/23/2024 8:10 AM SCREEN MAKING TECHNICIAN Ancillary Procedure [facility] Vascular Lab IP [address] [facility] [address] [place] [address] 05/21/2024 12:58 PM SCREEN MAKING TECHNICIAN - 05/21/2024 11:59 PM SCREEN MAKING TECHNICIAN Hospital Encounter AMBULANCE BILLING [address] [place] [address] Discharge Disposition: Discharge to home or self care 05/21/2024 11:00 AM SCREEN MAKING TECHNICIAN - 05/21/2024 11:59 PM SCREEN MAKING TECHNICIAN Hospital Encounter [facility] Breast [facility] [address] [place] [address] Floor 8 [place] [address] History of breast cancer; Axillary pain, left Discharge Disposition: Discharge to home or self care 05/16/2024 Telephone [facility] [address] [place] [address] 8 [place] [address] Jeanine Ba RMA 05/16/2024 Orders Only [facility] [address] [place] [address] 8 [place] [address] Radha Mcgrath RN History of breast cancer (Primary Dx); Axillary pain, left 05/16/2024 Orders Only [facility] [address] [place] [address] 8 [place] [address] Khris Arthur MD Swelling of left upper extremity (Primary Dx); Swelling of left lower extremity 05/14/2024 4:45 PM SCREEN MAKING TECHNICIAN Lab [facility] [address] [place] [address] 5 [place] [address] Malignant neoplasm of upper-inner quadrant of left breast in female, estrogen receptor positive (HCC) 05/14/2024 4:36 PM SCREEN MAKING TECHNICIAN - 05/14/2024 11:59 PM SCREEN MAKING TECHNICIAN Hospital Encounter [facility] Diagnostic Imaging [address] [place] [address] 8 [place] [address] Malignant neoplasm of upper-inner quadrant of left breast in female, estrogen receptor positive (HCC) Discharge Disposition: Discharge to home or self care 05/14/2024 4:00 PM SCREEN MAKING TECHNICIAN Lab [facility] Lab [address] [place] [phone] Malignant neoplasm of upper-inner quadrant of left breast in female, estrogen receptor positive (HCC) 05/14/2024 3:30 PM SCREEN MAKING TECHNICIAN Office Visit [facility] [address] [place] [phone] Khris Arthur MD Swelling of right lower extremity (Primary Dx); Malignant neoplasm of upper-inner quadrant of left breast in female, estrogen receptor positive (HCC); Swelling of right upper extremity; Swelling of left upper extremity; Swelling of left lower extremity 04/22/2024 Telephone [facility] [address] [place] [phone] Radha Mcgrath RN from Last 3 Months Allergies Active [...] 05/22/2024 Assessment & Plan (05/26/2024 10:08 AM SCREEN MAKING TECHNICIAN): Presenting with urinary symptoms of right [...] 05/22/2024 Assessment & Plan (05/25/2024 7:52 AM SCREEN MAKING TECHNICIAN): Hx of breast cancer c/b DVT/bilateral [...] 05/22/2024 Assessment & Plan (05/22/2024 1:14 PM SCREEN MAKING TECHNICIAN): -long-standing chronic back pain -CT L [...] 09/12/2021 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) 2021 correction (current) use 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 inhibitors 10/17/2019 Thyroid [...] without long-term current use of insulin ([facility]) 10/23/2017 Assessment & Plan (10/23/2017 2:06 [...] 10/13/2017 Assessment & Plan (05/22/2024 12:29 PM SCREEN MAKING TECHNICIAN): -Hx stage II, ER positive, HER2 [...] 08/01/2017 Assessment & Plan (05/22/2024 12:33 PM SCREEN MAKING TECHNICIAN): -Hx LUL -Hospital provided CPAP ordered History of DVT (deep vein thrombosis) 08/01/2017 History of pulmonary embolism 08/01/2017 Generalized weakness 07/27/2017 Dyspnea 07/27/2017 Unintentional weight loss 07/27/2017 Acute cystitis without hematuria 07/27/2017 Nausea and vomiting 07/26/2017 Overview (07/28/2017): Added automatically from request for surgery [id number] Pulmonary embolism 08/09/2016 Assessment & Plan (10/23/2017 2:05 AM CDT): On Rivaroxaban Lymphedema of left upper extremity 08/09/2016 Assessment & Plan (05/25/2024 7:53 AM SCREEN MAKING TECHNICIAN): S/p L axillary lymph node dissection [...] syndrome Assessment & Plan (05/22/2024 11:18 AM SCREEN MAKING TECHNICIAN): -continue home Requip 5mg nightly Pain of lower extremity 03/12/2013 Overview (07/29/2016): Leg pain Essential hypertension Assessment & Plan (05/23/2024 10:42 AM SCREEN MAKING TECHNICIAN): -Chart history of HTN but not on meds -BP elevated on admission, likely some pain contributing -Monitor closely once pain under adequate control, discussed following up with PCP for this Chronic anticoagulation Restless leg syndrome 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 Type 2 diabetes mellitus without complication Assessment & Plan (05/24/2024 1:39 PM SCREEN MAKING TECHNICIAN): -Last Ha1c 8.4 in 2023, repeat [...] drink = 0.6 oz pur e alcohol) [facility] Utilities Answer Date Recorded In the past 12 months has [employer], gas, oil, or water company threatened to [...] you attend chur ch or buddhist services? More than 4 times per year [...] in a jail (including now)? No 08/15/2023 Housing Stability Vital [...] time in the past 12 m [facility], were you homeless or living in a jail (including now)? No 05/24/2024 Personal Safety Answer Date Recorded Have you ever been in or are you currently in a harmful physical or emotional relationship or is someone making you feel afraid or unsafe? Denies 07/01/2024 Comments No Sex and Gender Information Value Date Recorded Sex Assigned at Not on file Legal Sex Female 12:24 AM SCREEN MAKING TECHNICIAN Gender Identity Not on file Sexual [...] GLUCOSE DEVICE Routine 05/26/2024 4 :27 PM SCREEN MAKING TECHNICIAN POCT GLUCOSE DEVICE Routine 05/26/2024 1 1:38 AM SCREEN MAKING TECHNICIAN POCT GLUCOSE DEVICE Routine 05/26/2024 8 :12 AM SCREEN MAKING TECHNICIAN EGFR Routine 05/26/2024 12:05 AM SCREEN MAKING TECHNICIAN DIFFERENTIAL AUTO Routine 05/26/2024 12: 05 AM SCREEN MAKING TECHNICIAN PHOSPHORUS Routine 05/26/2024 12:05 AM SCREEN MAKING TECHNICIAN COMPREHENSIVE METABOLIC PANEL Routine 05/26/2024 12:05 AM SCREEN MAKING TECHNICIAN MAGNESIUM Routine 05/26/2024 12:05 AM SCREEN MAKING TECHNICIAN CBC WITH AUTO DIFFERENTIAL Routine 05/26/2024 12:05 AM SCREEN MAKING TECHNICIAN POCT GLUCOSE DEVICE Routine 05/25/2024 7 :44 PM SCREEN MAKING TECHNICIAN POCT GLUCOSE DEVICE Routine 05/25/2024 5 :24 PM SCREEN MAKING TECHNICIAN POCT GLUCOSE DEVICE Routine 05/25/2024 1 1:37 AM SCREEN MAKING TECHNICIAN POCT GLUCOSE DEVICE Routine 05/25/2024 7 :27 AM SCREEN MAKING TECHNICIAN EGFR Routine 05/25/2024 12:20 AM SCREEN MAKING TECHNICIAN DIFFERENTIAL AUTO Routine 05/25/2024 12: 20 AM SCREEN MAKING TECHNICIAN PHOSPHORUS Routine 05/25/2024 12:20 AM SCREEN MAKING TECHNICIAN COMPREHENSIVE METABOLIC PANEL Routine 05/25/2024 12:20 AM SCREEN MAKING TECHNICIAN MAGNESIUM Routine 05/25/2024 12:20 AM SCREEN MAKING TECHNICIAN CBC WITH AUTO DIFFERENTIAL Routine 05/25/2024 12:20 AM SCREEN MAKING TECHNICIAN POCT GLUCOSE DEVICE Routine 05/24/2024 8 :13 PM SCREEN MAKING TECHNICIAN POCT GLUCOSE DEVICE Routine 05/24/2024 5 :17 PM SCREEN MAKING TECHNICIAN POCT GLUCOSE DEVICE Routine 05/24/2024 1 2:49 PM SCREEN MAKING TECHNICIAN POCT GLUCOSE DEVICE Routine 05/24/2024 9 :22 AM SCREEN MAKING TECHNICIAN HERPES SIMPLEX VIRUS (HSV) PCR Routine 05/24/2024 8:47 AM SCREEN MAKING TECHNICIAN POCT GLUCOSE DEVICE Routine 05/24/2024 8 :22 AM SCREEN MAKING TECHNICIAN EGFR Routine 05/24/2024 12:29 AM SCREEN MAKING TECHNICIAN DIFFERENTIAL AUTO Routine 05/24/2024 12: 29 AM SCREEN MAKING TECHNICIAN PHOSPHORUS Routine 05/24/2024 12:29 AM SCREEN MAKING TECHNICIAN COMPREHENSIVE METABOLIC PANEL Routine 05/24/2024 12:29 AM SCREEN MAKING TECHNICIAN MAGNESIUM Routine 05/24/2024 12:29 AM SCREEN MAKING TECHNICIAN CBC WITH AUTO DIFFERENTIAL Routine 05/24/2024 12:29 AM SCREEN MAKING TECHNICIAN POCT GLUCOSE DEVICE Routine 05/23/2024 8 :16 PM SCREEN MAKING TECHNICIAN POCT GLUCOSE DEVICE Routine 05/23/2024 6 :14 PM SCREEN MAKING TECHNICIAN POCT GLUCOSE DEVICE Routine 05/23/2024 1 2:17 PM SCREEN MAKING TECHNICIAN US VEIN DUPLEX LOWER EXTREMITY BILATERAL COMPLETE IP Routine 05/23/2024 11:45 AM SCREEN MAKING TECHNICIAN POCT GLUCOSE DEVICE Routine 05/23/2024 8 :16 AM SCREEN MAKING TECHNICIAN DIFFERENTIAL AUTO Routine 05/23/2024 2:3 0 AM SCREEN MAKING TECHNICIAN CBC WITH AUTO DIFFERENTIAL Routine 05/23/2024 2:30 AM SCREEN MAKING TECHNICIAN EGFR Routine 05/23/2024 12:42 AM SCREEN MAKING TECHNICIAN LACTATE DEHYDROGENASE Routine 05/23/2024 12:42 AM SCREEN MAKING TECHNICIAN URIC ACID Routine 05/23/2024 12:42 AM SCREEN MAKING TECHNICIAN TYPE AND SCREEN Timed 05/23/2024 12:42 AM SCREEN MAKING TECHNICIAN PHOSPHORUS Routine 05/23/2024 12:42 AM SCREEN MAKING TECHNICIAN COMPREHENSIVE METABOLIC PANEL Routine 05/23/2024 12:42 AM SCREEN MAKING TECHNICIAN MAGNESIUM Routine 05/23/2024 12:42 AM SCREEN MAKING TECHNICIAN POCT GLUCOSE DEVICE Routine 05/22/2024 8 :56 PM SCREEN MAKING TECHNICIAN POCT GLUCOSE DEVICE Routine 05/22/2024 6 :09 PM SCREEN MAKING TECHNICIAN POCT GLUCOSE DEVICE Routine 05/22/2024 4 :26 PM SCREEN MAKING TECHNICIAN CT ABDOMEN PELVIS W CONTRAST ED 05/22/2024 2:32 PM SCREEN MAKING TECHNICIAN POCT GLUCOSE DEVICE Routine 05/22/2024 1 2:58 PM SCREEN MAKING TECHNICIAN POCT GLUCOSE DEVICE Routine 05/22/2024 9 :29 AM SCREEN MAKING TECHNICIAN POCT GLUCOSE DEVICE Routine 05/22/2024 6 :54 AM SCREEN MAKING TECHNICIAN CT CHEST PE W CONTRAST ED 05/22/2024 1:31 AM SCREEN MAKING TECHNICIAN D-DIMER, QUANTITATIVE Routine 05/22/2024 12:24 AM SCREEN MAKING TECHNICIAN URINALYSIS, MICROSCOPIC ONLY Routine 05/21/2024 11:09 PM SCREEN MAKING TECHNICIAN TROPONIN I HIGH-SENSITIVITY 2-HOUR Timed 05/21/2024 11:09 PM SCREEN MAKING TECHNICIAN URINE CULTURE Routine 05/21/2024 11:09 PM SCREEN MAKING TECHNICIAN RESPIRATORY PATHOGEN PANEL Routine 05/21/2024 11:09 PM SCREEN MAKING TECHNICIAN URINALYSIS AND REFLEX TO MICROSCOPIC AND CULTURE Routine 05/21/2024 11:09 PM SCREEN MAKING TECHNICIAN POCT GLUCOSE DEVICE Routine 05/21/2024 8 :55 PM SCREEN MAKING TECHNICIAN TROPONIN I HIGH-SENSITIVITY 4-HOUR Timed 05/21/2024 7:26 PM SCREEN MAKING TECHNICIAN LIPID PANEL STAT 05/21/2024 4:20 PM SCREEN MAKING TECHNICIAN HEMOGLOBIN A1C STAT 05/21/2024 4:20 PM SCREEN MAKING TECHNICIAN EGFR STAT 05/21/2024 4:20 PM SCREEN MAKING TECHNICIAN DIFFERENTIAL AUTO STAT 05/21/2024 4:2 0 PM SCREEN MAKING TECHNICIAN TROPONIN I HIGH-SENSITIVITY SERIES (BASELINE, 2HR, 4HR, 6HR) STAT 05/21/2024 4:20 PM SCREEN MAKING TECHNICIAN COMPREHENSIVE METABOLIC PANEL STAT 05/21/2024 4:20 PM SCREEN MAKING TECHNICIAN CBC WITH AUTO DIFFERENTIAL STAT 05/21/2024 4:20 PM SCREEN MAKING TECHNICIAN XR CHEST PA LATERAL 2 VIEWS ED 05/21/2024 2:23 PM SCREEN MAKING TECHNICIAN POCT GLUCOSE DEVICE Routine 05/21/2024 1 :39 PM SCREEN MAKING TECHNICIAN ECG 12-LEAD STAT 05/21/2024 1:36 PM SCREEN MAKING TECHNICIAN US AXILLARY LEFT Schedule Routine, Read Routine (OP Routine) 05/21/2024 12:13 PM SCREEN MAKING TECHNICIAN History of breast cancer Axillary pain, left URINALYSIS, MICROSCOPIC ONLY Routine 05/14/2024 4:50 PM SCREEN MAKING TECHNICIAN Malignant neoplasm of upper-inner quadrant of left breast in female, estrogen receptor positive (HCC) URINALYSIS AND REFLEX TO MICROSCOPIC AND CULTURE Routine 05/14/2024 4:50 PM SCREEN MAKING TECHNICIAN Malignant neoplasm of upper-inner quadrant of left breast in female, estrogen receptor positive (HCC) XR RIBS LEFT 2 VIEWS Schedule Routine, Read Routine (OP Routine) 05/14/2024 4:44 PM SCREEN MAKING TECHNICIAN Malignant neoplasm of upper-inner quadrant of left [...] breath since last night. 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 AR: VALERY Report ID: [id number] Reading Location: [id number] Procedure Note Juve Gallegos MD - 07/01/2024 [...] Juve Gallegos M.D. AR: VALERY Report ID: [id number] Reading Location: [id number] Lila MCKEON IMG CT PROCEDURES Final Resu lt * (ABNORMAL) Troponin T high-sensitivity 2-hour (07/01/2024 3:43 PM CDT) Trop T hs 27(H) <=14 ng/L Comment: Interpretive Data For further hscTnT resources including the diagnostic algorithm and an aid in interpretation, copy and paste this link: https://nrl.testcatalog.org/show/hsTrop Current Interpretive Data last revised 2020. Testing performed by: [facility], [address] [place] [address]., [address] Trop T hs delta 0 ng/L MARY JANE PHAM Comment:Testing performed by : [address] [address] Trop T hs interp Insignificant MARY JANE PHAM Comment:Testing performed by : [address] [id number] Blood 07/01/2024 3:43 PM CDT 07/01/2024 3:52 PM CDT us Ilana Stevens MD LAB BLOOD ORDERABLES F inal Result MARY JANE [address] [facility] Department of [place] [address] * (ABNORMAL) Urinalysis reflex to microscopic and culture Urine (07/01/2024 3:43 PM CDT) Color, ur Yellow Yellow Comment:Testing performed by : [address] [address] Clarity, ur Clear Clear MARY JANE Comment:Testing performed by : [address] [address] Specific gravity, ur 1.020 1.003 - 1.030 MARY JANE Comment:Testing performed by : [address] [address] pH, urine 6.0 MARY JANE Comment: Interpretive Data U rine pH is affected by diet, medications, systemic acid-base disturbances, and renal tubular function. pH may affect urinary stone formation. For example, urine pH below 6.0 may help reduce the tendency for calcium phosphate stones and pH greater than 6.0 may reduce the tendency for uric acid stone formation. Source: [facility] [place] Current Interpretive Data was last revised on 2017 Testing performed by: [address] [address] Protein, ur ql Negative Negative MARY JANE Comment:Testing performed by : [address] [address] Glucose, ur ql 2+(A) Negative MARY JANE Comment:Testing performed by : [address] [address] Ketones, ur Negative Negative MARY JANE Comment:Testing performed by : [address] [address] Bilirubin, ur Negative Negative MARY JANE PHAM Comment:Testing performed by : [facility], [address] [place] [address], [place]., [address] Blood, ur Trace(A) Negative AMRY JANE PHAM Comment:Testing performed by : [address], [place]., [address] Urobilinogen, ur <2.0 <2.0 mg/dL MARY JANE PHAM Comment:Testing performed by : [address], [place]., [address] Nitrite, ur Negative Negative MARY JANE PHAM Comment:Testing performed by : [address], [place]., [address] Leukocyte esterase, ur Negative Negative MARY JANE PHAM Comment:Testing performed by : [address], [place]., [address] UA reflex comment Reflex to microscopic UA will be performed. MARY JANE PHAM Comment:Testing performed by : [address], [place]., [address] Urine 07/01/2024 3:43 PM CDT 07/01/2024 3:52 PM CDT us Ilana Stevens MD LAB MICROBIOLOGY - GEN ERAL ORDERABLES Final Result MARY JANE [address] [facility] Department [place] [address] * (ABNORMAL) Urinalysis, microscopic only (07/01/2024 3:43 PM CDT) WBC, ur 0-5 0 - 5 /HPF Comment:Testing performed by : [address] [address] RBC, ur 3-5(A) 0 - 2 /HPF MARY JANE PHAM Comment:Testing performed by : [address] [address] Epithelial cells, squamous, ur 1-5 0 - 5 /HPF MARY JANE PHAM Comment:Testing performed by : [address], [place]., [address] Mucous, ur Present(A) MARY JANE PHAM Comment:Testing performed by : [address] [address] Culture Reflex Comment Reflex conditions for urine culture (WBC >10) not met. MARY JANE PHAM Comment:Testing performed by : [facility], [address] [place] [address]., [address] Urine 07/01/2024 3:43 PM CDT 07/01/2024 3:52 PM CDT Ilana Stevens MD LAB URINE ORDERABLES F inal Result MARY JANE [address] [facility] Department [place] [address] * XR Chest 1 Vw Portable (if [...] Romelia Bowen D.O. PS: PS Report ID: [id number] Reading Location: [place] [address] Procedure Note Romelia Bowen DO - 07/01/2024 EXAM DESCRIPTION: XR CHEST [...] Romelia Bowen D.O. PS: PS Report ID: [id number] Reading Location: [place] [address] us Ilana Stevens MD IMG XR PROCEDURES Deann l Result * ECG 12 lead (07/01/2024 2:05 PM CDT) Pathologist [facility] Ventricular Rate EKG/Min 76 BPM [facility] Atrial Rate 76 BPM [facility] NH-Interval (MSEC) 130 ms [facility] QRS-Interval (MSEC) 86 ms [facility] QT-Interval (MSEC) 386 ms [facility] QTc 434 ms [facility] P [place] 26 degrees [facility] R [place] 22 degrees [facility] T [place] 46 degrees [facility] Diagnosis Normal sinus rhythm Normal ECG When compared with ECG of 28-DEC-2023 12:49, No significant change was found Confirmed by DUTCH BURGOS M.D. ([id number]) on 07/01/2024 10:10:22 PM [facility] 07/01/2024 2:05 PM CDT 07/01/2024 10:10 PM CDT us Ilana Stevens MD ECG ORDERABLES Final Result [facility] * (ABNORMAL) Troponin T high-sensitivity series (baseline, 2hr, 4hr, 6hr) (07/01/2024 2:02 PM CDT) Trop T hs 27(H) <=14 ng/L Comment: Interpretive Data For further hscTnT resources including the diagnostic algorithm and an aid in interpretation, copy and paste this link: https://nrl.testcatalog.org/show/hsTrop Current Interpretive Data last revised 2020. Testing performed by: [address] [address] Blood 07/01/2024 2:02 PM CDT 07/01/2024 2:12 PM CDT Ilana Stevens MD LAB BLOOD ORDERABLES F inal Result [facility] [address] [facility] Department [place] [address] * Influenza A/B, RSV, and COVID-19 PCR Nasopharyngeal (07/01/2024 2:02 PM CDT) Pathologist [facility] COVID-19 RNA Negative Negative Comment:Testing performed by : [address] [address] Influenza A RNA Negative Negative [facility] Comment:Testing performed by : [address] [address] Influenza B RNA Negative Negative [facility] Comment:Testing performed by : [address] [address] RSV RNA Negative Negative [facility] Comment: Interpretive data: Testing performed by [facility]. This test is performed using the [employer] Xpert Xpress CoV-2/Flu/RSV plus assay. This is a multiplex, real-time reverse transcriptase PCR assay intended for the qualitative detection of nucleic acid from SARS-CoV-2, influenza A, influenza B, and respiratory syncytial virus. This assay has been cleared by the [place] Food and Drug administration. The performance characteristics have been verified by the [facility]. Results must be considered in the clinical context, and a negative result does not rule out infection. Interpretive Data last revised 2023 Testing performed by: [facility], [address] [place] [address]., [address] Nasopharyngeal 07/01/2024 2: 02 PM CDT 07/01/2024 2:12 PM CDT Narrative MARY JANE - 07/01/2024 2:52 PM CDT Is the Patient experiencing symptoms consistent with COVID?->Yes us Ilana Stevens MD LAB MICROBIOLOGY - GEN ERAL ORDERABLES Final Result Performing Organization Address City/[facility]/ZIP Co de Phone Number MARY JANE [address] Department [place] [address] * eGFR (07/01/2024 2:02 PM CDT) eGFR [...] was last reviewed 2021. Testing performed by: [facility], [address] [place] [address]., [address] Blood 07/01/2024 2:02 PM CDT 07/01/2024 2:12 PM CDT us Ilana Stevens MD LAB BLOOD ORDERABLES F inal Result MARY JANE [address] Department [place] [address] * Differential, auto (07/01/2024 2:02 PM CDT) Neutrophil abs 5.3 1.5 - 6.5 K/cumm Comment:Testing performed by : [address] [address] Imm gran abs 0.0 0.0 - 0.1 K/cumm MARY JANE Comment:Testing performed by : [address] [address] Lymphocyte abs 2.6 0.8 - 3.3 K/cumm MARY JANE Comment:Testing performed by : [address] [address] Monocyte abs 0.8 0.2 - 0.8 K/cumm MARY JANE Comment:Testing performed by : [address] [address] Eosinophil abs 0.2 0.0 - 0.5 K/cumm MARY JANE Comment:Testing performed by : [address] [address] Basophil abs 0.0 0.0 - 0.1 K/cumm MARY JANE Comment:Testing performed by : [address] [address] Neutrophil pct 59.1 % MARY JANE Comment: Interpretive Data Percent cell count reference ranges are not reported, since discordance with absolute values may lead to misinterpretation of CBC data. Current Interpretive Data was last revised on 2017. Testing performed by: [address] [address] Imm gran pct 0.2 % MARY JANE Comment: Interpretive Data Percent cell count reference ranges are not reported, since discordance with absolute values may lead to misinterpretation of CBC data. Current Interpretive Data was last revised on 2017. Testing performed by: [address] [address] Lymphocyte pct 29.0 % MARY JANE Comment: Interpretive Data Percent cell count reference ranges are not reported, since discordance with absolute values may lead to misinterpretation of CBC data. Current Interpretive Data was last revised on 2017. Testing performed by: [address] [address] Monocyte pct 9.3 % [facility] Comment: Interpretive Data Percent cell count reference ranges are not reported, since discordance with absolute values may lead to misinterpretation of CBC data. Current Interpretive Data was last revised on 2017. Testing performed by: [address] [address] Eosinophil pct 2.2 % [facility] Comment: Interpretive Data Percent cell count reference ranges are not reported, since discordance with absolute values may lead to misinterpretation of CBC data. Current Interpretive Data was last revised on 2017. Testing performed by: [address] [address] Basophil pct 0.2 % [facility] Comment: Interpretive Data Percent cell count reference ranges are not reported, since discordance with absolute values may lead to misinterpretation of CBC data. Current Interpretive Data was last revised on 2017. Testing performed by: [address] [address] Blood 07/01/2024 2:02 PM CDT 07/01/2024 2:12 PM CDT us Ilana Stevens MD LAB BLOOD ORDERABLES F inal Result MARY JANE [address] [facility] Department of Laboratories [place], [place] [id number] * Pro B-type natriuretic peptide (07/01/2024 2:02 [...] Last Revised Date: 2017. Testing performed by: [address] [address] Blood 07/01/2024 2:02 PM CDT 07/01/2024 2:12 PM CDT Ilana Stevens MD LAB BLOOD ORDERABLES F inal Result MARY JANE [address] [facility] Department [place] [address] * (ABNORMAL) CBC with auto differential (07/01/2024 2:02 PM CDT) [facility] WBC 9.0 3.8 - 9.9 K/cumm Comment:Testing performed by : [address] [address] Hgb 13.2 11.9 - 15.5 g/dL MARY JANE PHAM Comment:Testing performed by : [address] [address] Hct 41.1 35.6 - 45.5 % MARY JANE PHAM Comment:Testing performed by : [address] [address] Plt 277 150 - 400 K/cumm MARY JANE Comment:Testing performed by : [address] [address] MPV 9.5 9.1 - 12.3 fL MARY JANE Comment:Testing performed by : [address] [address] RBC 4.53 3.90 - 5.20 M/cumm MARY JANE Comment:Testing performed by : [address] [address] MCV 90.7 81.3 - 96.4 fL MARY JANE Comment:Testing performed by : [address] [address] MCH 29.1 27.1 - 33.3 pg MARY JANE Comment:Testing performed by : [address] [address] MCHC 32.1(L) 32.3 - 35.7 g/dL MARY JANE Comment:Testing performed by : [address] [address] RDW CV 13.2 11.1 - 14.9 % MARY JANE Comment:Testing performed by : [address] [address] RDW SD 44.2 35.7 - 48.1 fL MARY JANE Comment:Testing performed by : [address] [address] NRBC abs 0.00 0.00 - 0.01 K/cumm MARY JANE Comment:Testing performed by : [address] [address] Blood 07/01/2024 2:02 PM CDT 07/01/2024 2:12 PM CDT us Ilana Stevens MD LAB BLOOD ORDERABLES F inal Result [facility] [address] [facility] Department of Laboratories [place], [place] [id number] * Comprehensive metabolic panel (07/01/2024 2:02 PM CDT) Sodium 137 135 - 145 mmol/L Comment:Testing performed by : [address], [place]., [address] Potassium, pl 4.2 3.3 - 4.9 mmol/L MARY JANE Comment:Testing performed by : [address], [place]., [address] Chloride 101 97 - 110 mmol/L MARY JANE Comment:Testing performed by : [address], [place]., [address] CO2 27 22 - 32 mmol/L MARY JANE Comment:Testing performed by : [address], [place]., [address] Anion gap 9 2 - 15 mmol/L MARY JANE Comment:Testing performed by : [address], [place]., [address] BUN 15 6 - 25 mg/dL MARY JANE Comment:Testing performed by : [address], [place]., [address] Creatinine 0.60 0.60 - 1.10 mg/dL MARY JANE Comment:Testing performed by : [address], [place]., [address] Glucose 166 70 - 199 mg/dL [facility] Comment: Interpretive Data Fasting glucose >/= 126 [...] was last revised 2022. Testing performed by: [address] [address] Calcium 9.8 8.5 - 10.3 mg/dL MARY JANE Comment:Testing performed by : [address], [place]., [address] Bilirubin, total 0.5 0.1 - 1.2 mg/dL MARY JANE Comment:Testing performed by : [address] [address] Protein, pl 8.0 6.5 - 8.5 g/dL MARY JANE Comment:Testing performed by : [address] [address] Albumin 3.8 3.5 - 5.0 g/dL MARY JANE Comment:Testing performed by : [address] [address] Alk phos 72 40 - 130 Units/L MARY JANE Comment:Testing performed by : [address] [address] ALT 19 7 - 45 Units/L MARY JANE Comment:Testing performed by : [address] [address] AST 23 10 - 45 Units/L MARY JANE Comment:Testing performed by : [address] [address] Blood 07/01/2024 2:02 PM CDT 07/01/2024 2:12 PM CDT us Ilana Stevens MD LAB BLOOD ORDERABLES F inal Result MARY JANE [address] Department [place] [address] * POCT glucose (05/26/2024 4:27 PM SCREEN MAKING TECHNICIAN) Glucose, POC 137 70 - 199 mg/dL Blood 05/26/2024 4:27 PM SCREEN MAKING TECHNICIAN 05/26/2024 4:27 PM SCREEN MAKING TECHNICIAN us Carlos Real MD LAB POCT ORDERABLES - DEVICE Fin al Result [facility] [place] [address] * POCT glucose (05/26/2024 11:38 AM SCREEN MAKING TECHNICIAN) Glucose, POC 146 70 - 199 mg/dL Blood 05/26/2024 11:3 8 AM SCREEN MAKING TECHNICIAN 05/26/2024 11:38 AM SCREEN MAKING TECHNICIAN Carlos Real MD LAB POCT ORDERABLES - DEVICE Fin al Result Performing Organization Address City/[facility] Co de Phone Number [facility] [place] [address] * POCT glucose (05/26/2024 8:12 AM SCREEN MAKING TECHNICIAN) Glucose, POC 134 70 - 199 mg/dL Blood 05/26/2024 8:12 AM SCREEN MAKING TECHNICIAN 05/26/2024 8:12 AM SCREEN MAKING TECHNICIAN Carlos Real MD LAB POCT ORDERABLES - DEVICE Fin al Result Performing Organization Address [facility] de Phone Number [facility] [place] [address] * eGFR (05/26/2024 12:05 AM SCREEN MAKING TECHNICIAN) eGFR >90 >=60 mL/min/1. 73 m2 Comment: [...] reviewed 2021. Blood 05/26/2024 12:0 5 AM SCREEN MAKING TECHNICIAN 05/26/2024 12:23 AM SCREEN MAKING TECHNICIAN us Carlos Real MD LAB BLOOD ORDERABLES Final Resul t [facility] Department [place] [address] * (ABNORMAL) Differential, auto (05/26/2024 12:05 AM SCREEN MAKING TECHNICIAN) Neutrophil abs 6.4 1.5 - 6.5 K/cumm Imm gran abs 0.0 0.0 - 0.1 K/cumm [facility] Lymphocyte abs 2.9 0.8 - 3.3 K/cumm [facility] Monocyte abs 0.9(H) 0.2 - 0.8 K/cumm [facility] Eosinophil abs 0.3 0.0 - 0.5 K/cumm [facility] Basophil abs 0.0 0.0 - 0.1 K/cumm [facility] Neutrophil pct 60.4 % [facility] Comment: Interpretive Data Percent cell count reference ranges are not reported, since discordance with absolute values may lead to misinterpretation of CBC data. Current Interpretive Data was last revised on 2017. Imm gran pct 0.4 % [facility] Comment: Interpretive Data Percent cell count reference ranges are not reported, since discordance with absolute values may lead to misinterpretation of CBC data. Current Interpretive Data was last revised on 2017. Lymphocyte pct 27.5 % [facility] Comment: Interpretive Data Percent cell count reference ranges are not reported, since discordance with absolute values may lead to misinterpretation of CBC data. Current Interpretive Data was last revised on 2017. Monocyte pct 8.2 % [facility] Comment: Interpretive Data Percent cell count reference ranges are not reported, since discordance with absolute values may lead to misinterpretation of CBC data. Current Interpretive Data was last revised on 2017. Eosinophil pct 3.1 % [facility] Comment: Interpretive Data Percent cell count reference ranges are not reported, since discordance with absolute values may lead to misinterpretation of CBC data. Current Interpretive Data was last revised on 2017. Basophil pct 0.4 % [facility] Comment: Interpretive Data Percent cell count reference ranges are not reported, since discordance with absolute values may lead to misinterpretation of CBC data. Current Interpretive Data was last revised on 2017. Blood 05/26/2024 12:0 5 AM SCREEN MAKING TECHNICIAN 05/26/2024 12:07 AM SCREEN MAKING TECHNICIAN Carlos Real MD LAB BLOOD ORDERABLES Final Resul t Performing Organization Address [facility] Co de Phone Number [facility] [place] [address] * (ABNORMAL) CBC with auto differential (05/26/2024 12:05 AM SCREEN MAKING TECHNICIAN) WBC 10.6(H) 3.8 - 9.9 K/cumm Hgb 12.5 11.9 - 15.5 g/dL [facility] Hct 39.2 35.6 - 45.5 % [facility] Plt 248 150 - 400 K/cumm [facility] MPV 9.7 9.1 - 12.3 fL [facility] RBC 4.32 3.90 - 5.20 M/cumm [facility] MCV 90.7 81.3 - 96.4 fL [facility] MCH 28.9 27.1 - 33.3 pg [facility] MCHC 31.9(L) 32.3 - 35.7 g/dL [facility] RDW CV 13.5 11.1 - 14.9 % [facility] RDW SD 45.1 35.7 - 48.1 fL [facility] NRBC abs 0.00 0.00 - 0.01 K/cumm [facility] Blood 05/26/2024 12:0 5 AM SCREEN MAKING TECHNICIAN 05/26/2024 12:07 AM SCREEN MAKING TECHNICIAN Carlos Real MD LAB BLOOD ORDERABLES Final Resul t Performing Organization Address City/[facility] Co de Phone Number [facility] [place] [address] * Phosphorus (05/26/2024 12:05 AM SCREEN MAKING TECHNICIAN) Pathologist [facility] Phosphorus, pl 3.2 2.3 - 4.5 mg/dL Blood 05/26/2024 12:0 5 AM SCREEN MAKING TECHNICIAN 05/26/2024 12:08 AM SCREEN MAKING TECHNICIAN Carlos Real MD LAB BLOOD ORDERABLES Final Resul t Performing Organization Address City/[facility] de Phone Number [facility] Department [place] [address] * Magnesium (05/26/2024 12:05 AM SCREEN MAKING TECHNICIAN) [facility] Magnesium 1.8 1.4 - 2.5 mg/dL Blood 05/26/2024 12:0 5 AM SCREEN MAKING TECHNICIAN 05/26/2024 12:08 AM SCREEN MAKING TECHNICIAN Carlos Real MD LAB BLOOD ORDERABLES Final Resul t Performing Organization Address [facility] de Phone Number [facility] Department [place] [address] * (ABNORMAL) Comprehensive metabolic panel (05/26/2024 12:05 AM SCREEN MAKING TECHNICIAN) [facility] Sodium 136 135 - 145 mmol/L Potassium, pl 4.2 3.3 - 4.9 mmol/L [facility] Chloride 101 97 - 110 mmol/L [facility] CO2 29 22 - 32 mmol/L [facility] Anion gap 6 2 - 15 mmol/L [facility] BUN 19 6 - 25 mg/dL [facility] Creatinine 0.67 0.60 - 1.10 mg/dL [facility] Glucose 164 70 - 199 mg/dL [facility] Comment: [...] Calcium 9.4 8.5 - 10.3 mg/dL [facility] Bilirubin, total 0.4 0.1 - 1.2 mg/dL [facility] Protein, pl 7.1 6.5 - 8.5 g/dL [facility] Albumin 3.3(L) 3.5 - 5.0 g/dL [facility] Alk phos 65 40 - 130 Units/L [facility] ALT 17 7 - 45 Units/L [facility] AST 19 10 - 45 Units/L [facility] Blood 05/26/2024 12:0 5 AM SCREEN MAKING TECHNICIAN 05/26/2024 12:08 AM SCREEN MAKING TECHNICIAN Carlos Real MD LAB BLOOD ORDERABLES Final Resul t Performing Organization Address [facility] Co de Phone Number [facility] [place] [address] * POCT glucose (05/25/2024 7:44 PM SCREEN MAKING TECHNICIAN) Glucose, POC 160 70 - 199 mg/dL Blood 05/25/2024 7:44 PM SCREEN MAKING TECHNICIAN 05/25/2024 7:44 PM SCREEN MAKING TECHNICIAN Carlos Real MD LAB POCT ORDERABLES - DEVICE Fin al Result Performing Organization Address [facility] Co de Phone Number [facility] [place] [address] * POCT glucose (05/25/2024 5:24 PM SCREEN MAKING TECHNICIAN) Glucose, POC 152 70 - 199 mg/dL Blood 05/25/2024 5:24 PM SCREEN MAKING TECHNICIAN 05/25/2024 5:24 PM SCREEN MAKING TECHNICIAN Carlos Real MD LAB POCT ORDERABLES - DEVICE Fin al Result Performing Organization Address [facility] Co de Phone Number [facility] [place] [address] * POCT glucose (05/25/2024 11:37 AM SCREEN MAKING TECHNICIAN) Glucose, POC 143 70 - 199 mg/dL Blood 05/25/2024 11:3 7 AM SCREEN MAKING TECHNICIAN 05/25/2024 11:37 AM SCREEN MAKING TECHNICIAN Carlos Real MD LAB POCT ORDERABLES - DEVICE Fin al Result Performing Organization Address [facility] de Phone Number [facility] Department [place] [address] * POCT glucose (05/25/2024 7:27 AM SCREEN MAKING TECHNICIAN) Glucose, POC 134 70 - 199 mg/dL Blood 05/25/2024 7:27 AM SCREEN MAKING TECHNICIAN 05/25/2024 7:27 AM SCREEN MAKING TECHNICIAN Carlos Real MD LAB POCT ORDERABLES - DEVICE Fin al Result Performing Organization Address City/[facility] Co de Phone Number [facility] [place] [address] * eGFR (05/25/2024 12:20 AM SCREEN MAKING TECHNICIAN) eGFR >90 >=60 mL/min/1. 73 m2 Comment: [...] reviewed 2021. Blood 05/25/2024 12:2 0 AM SCREEN MAKING TECHNICIAN 05/25/2024 12:43 AM SCREEN MAKING TECHNICIAN us Naila Guzman JOINTER MACHINE OPERATOR LAB BLOOD ORDERABLES Final Result [facility] Department [place] [address] * Differential, auto (05/25/2024 12:20 AM SCREEN MAKING TECHNICIAN) Neutrophil abs 5.9 1.5 - 6.5 K/cumm Imm gran abs 0.0 0.0 - 0.1 K/cumm [facility] Lymphocyte abs 2.4 0.8 - 3.3 K/cumm [facility] Monocyte abs 0.8 0.2 - 0.8 K/cumm [facility] Eosinophil abs 0.3 0.0 - 0.5 K/cumm [facility] Basophil abs 0.0 0.0 - 0.1 K/cumm [facility] Neutrophil pct 62.6 % [facility] Comment: Interpretive Data Percent cell count reference ranges are not reported, since discordance with absolute values may lead to misinterpretation of CBC data. Current Interpretive Data was last revised on 2017. Imm gran pct 0.3 % [facility] Comment: Interpretive Data Percent cell count reference ranges are not reported, since discordance with absolute values may lead to misinterpretation of CBC data. Current Interpretive Data was last revised on 2017. Lymphocyte pct 24.8 % [facility] Comment: Interpretive Data Percent cell count reference ranges are not reported, since discordance with absolute values may lead to misinterpretation of CBC data. Current Interpretive Data was last revised on 2017. Monocyte pct 8.8 % [facility] Comment: Interpretive Data Percent cell count reference ranges are not reported, since discordance with absolute values may lead to misinterpretation of CBC data. Current Interpretive Data was last revised on 2017. Eosinophil pct 3.2 % [facility] Comment: Interpretive Data Percent [...] on 2017. Blood 05/25/2024 12:2 0 AM SCREEN MAKING TECHNICIAN 05/25/2024 12:29 AM SCREEN MAKING TECHNICIAN us Naila Guzman JOINTER MACHINE OPERATOR LAB BLOOD ORDERABLES Final Result [facility] Department [place] [address] * (ABNORMAL) CBC with auto differential (05/25/2024 12:20 AM SCREEN MAKING TECHNICIAN) WBC 9.5 3.8 - 9.9 K/cumm Hgb 12.8 11.9 - 15.5 g/dL [facility] Hct 40.0 35.6 - 45.5 % [facility] Plt 246 150 - 400 K/cumm [facility] MPV 9.8 9.1 - 12.3 fL [facility] RBC 4.42 3.90 - 5.20 M/cumm [facility] MCV 90.5 81.3 - 96.4 fL [facility] MCH 29.0 27.1 - 33.3 pg [facility] MCHC 32.0(L) 32.3 - 35.7 g/dL [facility] RDW CV 13.5 11.1 - 14.9 % [facility] RDW SD 45.3 35.7 - 48.1 fL [facility] NRBC abs 0.00 0.00 - 0.01 K/cumm [facility] Blood 05/25/2024 12:2 0 AM SCREEN MAKING TECHNICIAN 05/25/2024 12:29 AM SCREEN MAKING TECHNICIAN Naila Guzman JOINTER MACHINE OPERATOR LAB BLOOD ORDERABLES Final Result Performing Organization Address [facility] Co de Phone Number [facility] [place] [address] * Phosphorus (05/25/2024 12:20 AM SCREEN MAKING TECHNICIAN) [facility] Phosphorus, pl 3.1 2.3 - 4.5 mg/dL Blood 05/25/2024 12:2 0 AM SCREEN MAKING TECHNICIAN 05/25/2024 12:29 AM SCREEN MAKING TECHNICIAN Naila Guzman NP LAB BLOOD ORDERABLES Final Result Performing Organization Address [facility] de Phone Number [facility] [place] [address] * Magnesium (05/25/2024 12:20 AM SCREEN MAKING TECHNICIAN) [facility] Magnesium 1.9 1.4 - 2.5 mg/dL Blood 05/25/2024 12:2 0 AM SCREEN MAKING TECHNICIAN 05/25/2024 12:29 AM SCREEN MAKING TECHNICIAN Naila Guzman NP LAB BLOOD ORDERABLES Final Result Performing Organization Address [facility] [place] [address] * (ABNORMAL) Comprehensive metabolic panel (05/25/2024 12:20 AM SCREEN MAKING TECHNICIAN) [facility] Sodium 138 135 - 145 mmol/L Potassium, pl 4.4 3.3 - 4.9 mmol/L [facility] Chloride 101 97 - 110 mmol/L [facility] CO2 29 22 - 32 mmol/L [facility] Anion gap 8 2 - 15 mmol/L [facility] BUN 20 6 - 25 mg/dL [facility] Creatinine 0.69 0.60 - 1.10 mg/dL [facility] Glucose 156 70 - 199 mg/dL [facility] Comment: [...] 2022. Calcium 9.4 8.5 - 10.3 mg/dL [facility] Bilirubin, total 0.5 0.1 - 1.2 mg/dL [facility] Protein, pl 7.4 6.5 - 8.5 g/dL [facility] Albumin 3.4(L) 3.5 - 5.0 g/dL [facility] Alk phos 67 40 - 130 Units/L [facility] ALT 18 7 - 45 Units/L [facility] AST 16 10 - 45 Units/L [facility] Blood 05/25/2024 12:2 0 AM SCREEN MAKING TECHNICIAN 05/25/2024 12:29 AM SCREEN MAKING TECHNICIAN us Naila Guzman NP LAB BLOOD ORDERABLES Final Result Performing Organization Address City/[facility]/ZIP Co de Phone Number [facility] Department [place] [address] * POCT glucose (05/24/2024 8:13 PM SCREEN MAKING TECHNICIAN) [facility] Glucose, POC 171 70 - 199 mg/dL Blood 05/24/2024 8:13 PM SCREEN MAKING TECHNICIAN 05/24/2024 8:13 PM SCREEN MAKING TECHNICIAN Carlos Real MD LAB POCT ORDERABLES - DEVICE Fin al Result Performing Organization Address City/[facility]/ZIP [place] [address] * POCT glucose (05/24/2024 5:17 PM SCREEN MAKING TECHNICIAN) Glucose, POC 133 70 - 199 mg/dL Blood 05/24/2024 5:17 PM SCREEN MAKING TECHNICIAN 05/24/2024 5:17 PM SCREEN MAKING TECHNICIAN Carlos Real MD LAB POCT ORDERABLES - DEVICE Fin al Result Performing Organization Address City/[facility] [place] [address] * POCT glucose (05/24/2024 12:49 PM SCREEN MAKING TECHNICIAN) Glucose, POC 180 70 - 199 mg/dL Blood 05/24/2024 12:4 9 PM SCREEN MAKING TECHNICIAN 05/24/2024 12:49 PM SCREEN MAKING TECHNICIAN Carlos Real MD LAB POCT ORDERABLES - DEVICE Fin al Result Performing Organization Address City/[facility] [place] [address] * POCT glucose (05/24/2024 9:22 AM SCREEN MAKING TECHNICIAN) Glucose, POC 139 70 - 199 mg/dL Blood 05/24/2024 9:22 AM SCREEN MAKING TECHNICIAN 05/24/2024 9:22 AM SCREEN MAKING TECHNICIAN Carlos Real MD LAB POCT ORDERABLES - DEVICE Fin al Result Performing Organization Address City/[facility]/ZIP [place] [address] * Herpes Simplex Virus (HSV) PCR Oral (05/24/2024 8:47 AM SCREEN MAKING TECHNICIAN) Pathologist [facility] HSV DNA Not Detected Not Detected [facility] Comment: Interpretive Data This assay is performed [...] reviewed on 08/21/2018 Oral 05/24/2024 8:47 AM SCREEN MAKING TECHNICIAN 05/24/2024 9:24 AM SCREEN MAKING TECHNICIAN Narrative [facility] - 05/24/2024 4:28 PM SCREEN MAKING TECHNICIAN Oral ulcer swab Naila Guzman NP LAB MICROBIOLOGY - GENERAL ORDERABLES Final Result [facility] Department [place] [address] [facility] * POCT glucose (05/24/2024 8:22 AM SCREEN MAKING TECHNICIAN) Pathologist [facility] Glucose, POC 132 70 - 199 mg/dL Blood 05/24/2024 8:22 AM SCREEN MAKING TECHNICIAN 05/24/2024 8:22 AM SCREEN MAKING TECHNICIAN Carlos Real MD LAB POCT ORDERABLES - DEVICE Fin al Result Performing Organization Address City/[facility]/ZIP Co de Phone Number [facility] Department [place] [address] * eGFR (05/24/2024 12:29 AM SCREEN MAKING TECHNICIAN) eGFR 87 >=60 mL/min/1. 73 m2 Comment: [...] reviewed 2021. Blood 05/24/2024 12:2 9 AM SCREEN MAKING TECHNICIAN 05/24/2024 12:54 AM SCREEN MAKING TECHNICIAN us Naila Guzman JOINTER MACHINE OPERATOR LAB BLOOD ORDERABLES Final Result [facility] Department [place] [address] * (ABNORMAL) Differential, auto (05/24/2024 12:29 AM SCREEN MAKING TECHNICIAN) Neutrophil abs 5.3 1.5 - 6.5 K/cumm Imm gran abs 0.0 0.0 - 0.1 K/cumm [facility] Lymphocyte abs 3.0 0.8 - 3.3 K/cumm [facility] Monocyte abs 0.9(H) 0.2 - 0.8 K/cumm [facility] Eosinophil abs 0.3 0.0 - 0.5 K/cumm [facility] Basophil abs 0.0 0.0 - 0.1 K/cumm [facility] Neutrophil pct 55.8 % [facility] Comment: Interpretive Data Percent cell count reference ranges are not reported, since discordance with absolute values may lead to misinterpretation of CBC data. Current Interpretive Data was last revised on 2017. Imm gran pct 0.4 % [facility] Comment: Interpretive Data Percent cell count reference ranges are not reported, since discordance with absolute values may lead to misinterpretation of CBC data. Current Interpretive Data was last revised on 2017. Lymphocyte pct 31.4 % [facility] Comment: Interpretive Data Percent cell count reference ranges are not reported, since discordance with absolute values may lead to misinterpretation of CBC data. Current Interpretive Data was last revised on 2017. Monocyte pct 9.0 % [facility] Comment: Interpretive Data Percent cell count reference ranges are not reported, since discordance with absolute values may lead to misinterpretation of CBC data. Current Interpretive Data was last revised on 2017. Eosinophil pct 3.0 % [facility] Comment: Interpretive Data Percent cell count reference ranges are not reported, since discordance with absolute values may lead to misinterpretation of CBC data. Current Interpretive Data was last revised on 2017. Basophil pct 0.4 % [facility] Comment: Interpretive Data Percent cell count reference ranges are not reported, since discordance with absolute values may lead to misinterpretation of CBC data. Current Interpretive Data was last revised on 2017. Blood 05/24/2024 12:2 9 AM SCREEN MAKING TECHNICIAN 05/24/2024 12:54 AM SCREEN MAKING TECHNICIAN us Naila Guzman NP LAB BLOOD ORDERABLES Final Result [facility] Department of Laboratories [place], [place] [id number] * CBC with auto differential (05/24/2024 12:29 AM SCREEN MAKING TECHNICIAN) WBC 9.5 3.8 - 9.9 K/cumm Hgb 12.6 11.9 - 15.5 g/dL [facility] Hct 39.0 35.6 - 45.5 % [facility] Plt 223 150 - 400 K/cumm [facility] MPV 9.6 9.1 - 12.3 fL [facility] RBC 4.23 3.90 - 5.20 M/cumm [facility] MCV 92.2 81.3 - 96.4 fL [facility] MCH 29.8 27.1 - 33.3 pg [facility] MCHC 32.3 32.3 - 35.7 g/dL [facility] RDW CV 13.7 11.1 - 14.9 % [facility] RDW SD 46.5 35.7 - 48.1 fL [facility] NRBC abs 0.00 0.00 - 0.01 K/cumm [facility] Blood 05/24/2024 12:2 9 AM SCREEN MAKING TECHNICIAN 05/24/2024 12:54 AM SCREEN MAKING TECHNICIAN Naila Guzman JOINTER MACHINE OPERATOR LAB BLOOD ORDERABLES Final Result Performing Organization Address City/[facility]/ZIP Co de Phone Number [facility] [place] [address] * Phosphorus (05/24/2024 12:29 AM SCREEN MAKING TECHNICIAN) Pathologist [facility] Phosphorus, pl 3.6 2.3 - 4.5 mg/dL Blood 05/24/2024 12:2 9 AM SCREEN MAKING TECHNICIAN 05/24/2024 12:54 AM SCREEN MAKING TECHNICIAN Naila Guzman NP LAB BLOOD ORDERABLES Final Result Performing Organization Address [facility] de Phone Number [facility] [place] [address] * Magnesium (05/24/2024 12:29 AM SCREEN MAKING TECHNICIAN) [facility] Magnesium 1.9 1.4 - 2.5 mg/dL Blood 05/24/2024 12:2 9 AM SCREEN MAKING TECHNICIAN 05/24/2024 12:54 AM SCREEN MAKING TECHNICIAN Naila Guzman NP LAB BLOOD ORDERABLES Final Result Performing Organization Address City/[facility] [place] [address] * (ABNORMAL) Comprehensive metabolic panel (05/24/2024 12:29 AM SCREEN MAKING TECHNICIAN) Pathologist [facility] Sodium 139 135 - 145 mmol/L Potassium, pl 4.3 3.3 - 4.9 mmol/L [facility] Chloride 103 97 - 110 mmol/L [facility] CO2 29 22 - 32 mmol/L [facility] Anion gap 7 2 - 15 mmol/L [facility] BUN 19 6 - 25 mg/dL [facility] Creatinine 0.75 0.60 - 1.10 mg/dL [facility] Glucose 157 70 - 199 mg/dL [facility] Comment: [...] 2022. Calcium 9.2 8.5 - 10.3 mg/dL [facility] Bilirubin, total 0.4 0.1 - 1.2 mg/dL [facility] Protein, pl 7.1 6.5 - 8.5 g/dL [facility] Albumin 3.3(L) 3.5 - 5.0 g/dL [facility] Alk phos 65 40 - 130 Units/L [facility] ALT 18 7 - 45 Units/L [facility] AST 17 10 - 45 Units/L [facility] Blood 05/24/2024 12:2 9 AM SCREEN MAKING TECHNICIAN 05/24/2024 12:54 AM SCREEN MAKING TECHNICIAN Naila Guzman NP LAB BLOOD ORDERABLES Final Result [facility] [place] [address] * POCT glucose (05/23/2024 8:16 PM SCREEN MAKING TECHNICIAN) [facility] Glucose, POC 145 70 - 199 mg/dL Blood 05/23/2024 8:16 PM SCREEN MAKING TECHNICIAN 05/23/2024 8:16 PM SCREEN MAKING TECHNICIAN Carlos Real MD LAB POCT ORDERABLES - DEVICE Fin al Result Performing Organization Address [facility] [place] [address] * POCT glucose (05/23/2024 6:14 PM SCREEN MAKING TECHNICIAN) Glucose, POC 181 70 - 199 mg/dL Blood 05/23/2024 6:14 PM SCREEN MAKING TECHNICIAN 05/23/2024 6:14 PM SCREEN MAKING TECHNICIAN Carlos Real MD LAB POCT ORDERABLES - DEVICE Fin al Result Performing Organization Address [facility] [place] [address] * POCT glucose (05/23/2024 12:17 PM SCREEN MAKING TECHNICIAN) Glucose, POC 159 70 - 199 mg/dL Blood 05/23/2024 12:1 7 PM SCREEN MAKING TECHNICIAN 05/23/2024 12:17 PM SCREEN MAKING TECHNICIAN Cem Knapp MD LAB POCT ORDERABLES - DEVIC E Final Result Performing Organization Address [facility] Co de Phone Number [facility] [place] [address] * US Vein Duplex Lower Extremity Bilateral Complete (05/23/2024 11:45 AM SCREEN MAKING TECHNICIAN) LV EF % CONS SCIMAGE Anatomical Region Laterality Modality Vascular Bilateral Ultrasound 05/23/2024 11:1 2 AM SCREEN MAKING TECHNICIAN Narrative 05/23/2024 9:43 PM SCREEN MAKING TECHNICIAN [facility] - Department of Vascular Surgery, Vascular Laboratory [address] [place] [id number] Lower Extremity Venous Ultrasound Report Patient Name: MOHSEN MARQUES M : 1955 (68y 11m) Study Date: 05/23/2024 11:12:03 AM Gender: F Tech: HeathBROWN Location: [id number] Ref Provider: CARLOS REAL Quality: Adequate Order Provider: CARLOS REAL PROCEDURES: Vascular Report: Venous Duplex imaging was performed bilaterally in the lower extremities. The common femoral, femoral, popliteal, posterior tibial, peroneal veins were evaluated for patency, spontaneity and phasicity with Doppler, compression and augmentation maneuvers. Great saphenous vein proximal at the junction was evaluated with compression maneuvers. INDICATIONS: Localized edema. FINDINGS: Performing Architectural Technologist: Marlys Brown RVT. Bilateral: Venous Doppler signals [...] Vu Obregon MD FACS 05/23/2024 9:42:19 PM SCREEN MAKING TECHNICIAN Procedure Note Vu Obregon MD - 05/23/2024 [facility] - Department of Vascular Surgery,Vascular Laboratory [address] [place] [address] Lower Extremity Venous Ultrasound Report Patient Name: MOHSEN MARQUES M : 1955 (68y 11m) Study Date: 05/23/2024 11:12:03 AM Gender: F Tech: VELVET Location: [id number] Ref Provider: CARLOS REAL Quality: Adequate Order Provider: CARLOS REAL PROCEDURES: Vascular Report: Venous Duplex imaging was performed bilaterally in the lower extremities.The common femoral, femoral, popliteal, posterior tibial, peroneal veins wereevaluated for patency, spontaneity and phasicity with Doppler, compression and augmentationmaneuvers. Great saphenous vein proximal at the junction was evaluated with compressionmaneuvers. INDICATIONS: Localized edema. FINDINGS: Performing Architectural Technologist: Marlys Brown RVT. Bilateral: Venous Doppler signals [...] Vu Obregon MD FACS 05/23/2024 9:42:19 PM SCREEN MAKING TECHNICIAN Carlos Real MD [facility] US PROCEDURES Final Result * (ABNORMAL) POCT glucose (05/23/2024 8:16 AM SCREEN MAKING TECHNICIAN) Glucose, POC 204(H) 70 - 199 mg/dL Blood 05/23/2024 8:16 AM SCREEN MAKING TECHNICIAN 05/23/2024 8:16 AM SCREEN MAKING TECHNICIAN Cem Knapp MD LAB POCT ORDERABLES - DEVIC E Final Result [facility] [place] [address] * (ABNORMAL) Differential, auto (05/23/2024 2:30 AM SCREEN MAKING TECHNICIAN) Neutrophil abs 8.0(H) 1.5 - 6.5 K/cumm Imm gran abs 0.1 0.0 - 0.1 K/cumm [facility] Lymphocyte abs 2.6 0.8 - 3.3 K/cumm [facility] Monocyte abs 1.0(H) 0.2 - 0.8 K/cumm [facility] Eosinophil abs 0.3 0.0 - 0.5 K/cumm [facility] Basophil abs 0.0 0.0 - 0.1 K/cumm [facility] Neutrophil pct 66.5 % [facility] Comment: Interpretive Data Percent cell count reference ranges are not reported, since discordance with absolute values may lead to misinterpretation of CBC data. Current Interpretive Data was last revised on 2017. Imm gran pct 0.5 % [facility] Comment: Interpretive Data Percent cell count reference ranges are not reported, since discordance with absolute values may lead to misinterpretation of CBC data. Current Interpretive Data was last revised on 2017. Lymphocyte pct 21.9 % [facility] Comment: Interpretive Data Percent cell count reference ranges are not reported, since discordance with absolute values may lead to misinterpretation of CBC data. Current Interpretive Data was last revised on 2017. Monocyte pct 8.5 % [facility] Comment: Interpretive Data Percent cell count reference ranges are not reported, since discordance with absolute values may lead to misinterpretation of CBC data. Current Interpretive Data was last revised on 2017. Eosinophil pct 2.3 % [facility] Comment: Interpretive Data Percent [...] revised on 2017. Blood 05/23/2024 2:30 AM SCREEN MAKING TECHNICIAN 05/23/2024 1:03 AM SCREEN MAKING TECHNICIAN us Naila Guzman NP LAB BLOOD ORDERABLES Final Result [facility] [place] [address] * (ABNORMAL) CBC with auto differential (05/23/2024 2:30 AM SCREEN MAKING TECHNICIAN) WBC 11.9(H) 3.8 - 9.9 K/cumm Hgb 12.8 11.9 - 15.5 g/dL [facility] Hct 39.6 35.6 - 45.5 % [facility] Plt 254 150 - 400 K/cumm [facility] MPV 9.7 9.1 - 12.3 fL [facility] RBC 4.43 3.90 - 5.20 M/cumm [facility] MCV 89.4 81.3 - 96.4 fL [facility] MCH 28.9 27.1 - 33.3 pg [facility] MCHC 32.3 32.3 - 35.7 g/dL [facility] RDW CV 13.7 11.1 - 14.9 % [facility] RDW SD 44.6 35.7 - 48.1 fL [facility] NRBC abs 0.00 0.00 - 0.01 K/cumm [facility] Blood 05/23/2024 2:30 AM SCREEN MAKING TECHNICIAN 05/23/2024 1:03 AM SCREEN MAKING TECHNICIAN us Naila Guzman NP LAB BLOOD ORDERABLES Final Result [facility] [place] [address] * eGFR (05/23/2024 12:42 AM SCREEN MAKING TECHNICIAN) eGFR 84 >=60 mL/min/1. 73 m2 Comment: [...] reviewed 2021. Blood 05/23/2024 12:4 2 AM SCREEN MAKING TECHNICIAN 05/23/2024 1:02 AM SCREEN MAKING TECHNICIAN Naila Guzman NP LAB BLOOD ORDERABLES Final Result Performing Organization Address [facility] Co de Phone Number [facility] [place] [address] * Type and screen (05/23/2024 12:42 AM SCREEN MAKING TECHNICIAN) ABO Rh O Positive Dilcia, indirect Negative [facility] Blood 05/23/2024 12:4 2 AM SCREEN MAKING TECHNICIAN 05/23/2024 12:52 AM SCREEN MAKING TECHNICIAN Narrative [facility] - 05/23/2024 1:53 AM SCREEN MAKING TECHNICIAN Has the patient had Daratumumab or Isatuximab in the past 6 months?->Unknown Naila Guzman NP LAB BLOOD BANK TEST ORDERA BLES Final Result Performing Organization Address [facility] de Phone Number [facility] [place] [address] * Uric acid (05/23/2024 12:42 AM SCREEN MAKING TECHNICIAN) Uric acid 5.5 2.5 - 7.0 mg/dL Blood 05/23/2024 12:4 2 AM SCREEN MAKING TECHNICIAN 05/23/2024 1:02 AM SCREEN MAKING TECHNICIAN Narrative [facility] - 05/23/2024 1:34 AM SCREEN MAKING TECHNICIAN Monday and only. Morning draw. . Naila Guzman NP LAB BLOOD ORDERABLES Final Result Performing Organization Address [facility] Co de Phone Number [facility] [place] [address] * Phosphorus (05/23/2024 12:42 AM SCREEN MAKING TECHNICIAN) Pathologist [facility] Phosphorus, pl 4.4 2.3 - 4.5 mg/dL Blood 05/23/2024 12:4 2 AM SCREEN MAKING TECHNICIAN 05/23/2024 1:02 AM SCREEN MAKING TECHNICIAN Naila Guzman NP LAB BLOOD ORDERABLES Final Result Performing Organization Address [facility] Co de Phone Number [facility] [place] [address] * Magnesium (05/23/2024 12:42 AM SCREEN MAKING TECHNICIAN) [facility] Magnesium 1.9 1.4 - 2.5 mg/dL Blood 05/23/2024 12:4 2 AM SCREEN MAKING TECHNICIAN 05/23/2024 1:02 AM SCREEN MAKING TECHNICIAN Naila Guzman NP LAB BLOOD ORDERABLES Final Result Performing Organization Address [facility] de Phone Number [facility] [place] [address] * Lactate dehydrogenase (LD) (05/23/2024 12:42 AM SCREEN MAKING TECHNICIAN) [facility] Lactate dehydrogenase (LDH) 247 100 - 250 Units/L Blood 05/23/2024 12:4 2 AM SCREEN MAKING TECHNICIAN 05/23/2024 1:02 AM SCREEN MAKING TECHNICIAN Narrative [facility] - 05/23/2024 1:34 AM SCREEN MAKING TECHNICIAN Monday and only. Morning draw. Naila Guzman NP LAB BLOOD ORDERABLES Final Result Performing Organization Address [facility] [place] [address] * Comprehensive metabolic panel (05/23/2024 12:42 AM SCREEN MAKING TECHNICIAN) Pathologist [facility] Sodium 136 135 - 145 mmol/L Potassium, pl 4.3 3.3 - 4.9 mmol/L [facility] Chloride 101 97 - 110 mmol/L [facility] CO2 29 22 - 32 mmol/L [facility] Anion gap 6 2 - 15 mmol/L [facility] BUN 18 6 - 25 mg/dL [facility] Creatinine 0.77 0.60 - 1.10 mg/dL [facility] Glucose 194 70 - 199 mg/dL [facility] Comment: [...] 2022. Calcium 9.5 8.5 - 10.3 mg/dL [facility] Bilirubin, total 0.5 0.1 - 1.2 mg/dL [facility] Protein, pl 7.4 6.5 - 8.5 g/dL [facility] Albumin 3.5 3.5 - 5.0 g/dL [facility] Alk phos 71 40 - 130 Units/L [facility] ALT 19 7 - 45 Units/L [facility] AST 22 10 - 45 Units/L [facility] Blood 05/23/2024 12:4 2 AM SCREEN MAKING TECHNICIAN 05/23/2024 1:02 AM SCREEN MAKING TECHNICIAN us Naila Guzman NP LAB BLOOD ORDERABLES Final Result [facility] [place] [address] * (ABNORMAL) POCT glucose (05/22/2024 8:56 PM SCREEN MAKING TECHNICIAN) [facility] Signature Glucose, POC 210(H) 70 - 199 mg/dL Blood 05/22/2024 8:56 PM SCREEN MAKING TECHNICIAN 05/22/2024 8:56 PM SCREEN MAKING TECHNICIAN us Cem Knapp MD LAB POCT ORDERABLES - DEVIC E Final Result Performing Organization Address [facility] de Phone Number [facility] [place] [address] * POCT glucose (05/22/2024 6:09 PM SCREEN MAKING TECHNICIAN) Glucose, POC 142 70 - 199 mg/dL Blood 05/22/2024 6:09 PM SCREEN MAKING TECHNICIAN 05/22/2024 6:09 PM SCREEN MAKING TECHNICIAN Leo Henry MD LAB POCT ORDERABLES - NILESH CE Final Result Performing Organization Address [facility] [place] [address] * POCT glucose (05/22/2024 4:26 PM SCREEN MAKING TECHNICIAN) Glucose, POC 133 70 - 199 mg/dL Blood 05/22/2024 4:26 PM SCREEN MAKING TECHNICIAN 05/22/2024 4:26 PM SCREEN MAKING TECHNICIAN Leo Henry MD LAB POCT ORDERABLES - NILESH CE Final Result Performing Organization Address [facility] [place] [address] * CT Abdomen Pelvis W Contrast (05/22/2024 2:32 PM SCREEN MAKING TECHNICIAN) Anatomical Region Laterality Modality Body N/A Computed Tomogra phy 05/22/2024 4:35 PM SCREEN MAKING TECHNICIAN Impressions 05/22/2024 5:16 PM SCREEN MAKING TECHNICIAN No acute findings within the abdomen or pelvis. Dictated by: Yesi Mendes M.D. The radiology attending physician has personally reviewed this study, and had reviewed and/or edited this written report and agrees with it. Electronically signed by: Kelli Palmer M.D. Narrative 05/22/2024 5:16 PM SCREEN MAKING TECHNICIAN EXAMINATION: Computed tomography of the abdomen and [...] sult * POCT glucose (05/22/2024 12:58 PM SCREEN MAKING TECHNICIAN) Glucose, POC 177 70 - 199 mg/dL Blood 05/22/2024 12:5 8 PM SCREEN MAKING TECHNICIAN 05/22/2024 12:58 PM SCREEN MAKING TECHNICIAN Leo Henry MD LAB POCT ORDERABLES - NILESH CE Final Result [facility] [place] [address] * (ABNORMAL) POCT glucose (05/22/2024 9:29 AM SCREEN MAKING TECHNICIAN) Glucose, POC 291(H) 70 - 199 mg/dL Blood 05/22/2024 9:29 AM SCREEN MAKING TECHNICIAN 05/22/2024 9:29 AM SCREEN MAKING TECHNICIAN us Leo Henry MD LAB POCT ORDERABLES - NILESH CE Final Result Performing Organization Address [facility] Co de Phone Number [facility] [place] [address] * POCT glucose (05/22/2024 6:54 AM SCREEN MAKING TECHNICIAN) Glucose, POC 142 70 - 199 mg/dL Blood 05/22/2024 6:54 AM SCREEN MAKING TECHNICIAN 05/22/2024 6:54 AM SCREEN MAKING TECHNICIAN us Jimmie Zavala MD LAB POCT ORDERABLES - DEVICE Fin al Result Performing Organization Address [facility] de Phone Number [facility] Department [place] [address] * CT Chest PE (CTA) W Contrast (05/22/2024 1:31 AM SCREEN MAKING TECHNICIAN) Anatomical Region Laterality Modality Body N/A Computed Tomogra phy 05/22/2024 2:38 AM SCREEN MAKING TECHNICIAN Impressions 05/22/2024 9:12 AM SCREEN MAKING TECHNICIAN No pulmonary embolism. Dictated by: Miguel Milligan MD The radiology attending physician has personally reviewed this study, and had reviewed and/or edited this written report and agrees with it. Electronically signed by: Jayson Rockwell M.D. Narrative 05/22/2024 9:12 AM SCREEN MAKING TECHNICIAN EXAMINATION: CT CHEST PE (CTA) W CONTRAST [...] Result * D-dimer, quantitative (05/22/2024 12:24 AM SCREEN MAKING TECHNICIAN) D-Dimer 414 <=499 ng/mL FEU Comment: Interpretive [...] on 2019. Blood 05/22/2024 12:2 4 AM SCREEN MAKING TECHNICIAN 05/22/2024 12:42 AM SCREEN MAKING TECHNICIAN Angeline Soler MD LAB BLOOD ORDERABLES F inal Result [facility] [place] [address] * Troponin I high-sensitivity 2-hour (05/21/2024 11:09 PM SCREEN MAKING TECHNICIAN) Trop I hs 5 <=17 ng/L Comment: Interpretive Data For further hscTnI resources including the diagnostic algorithm and an aid in interpretation, copy and paste this link: https://bjhlab.testcatalog.org/show/hsTrop-1 Current Interpretive Data last revised 2019. Trop I hs delta See Comment ng/L [facility] Comment:Inappropriate collec tion time to report a delta. Trop I hs pct delta See Comment % [facility] Comment:Inappropriate collec tion time to report a delta. Trop I hs interp See Comment [facility] Comment:Inappropriate collec tion time to report a delta. Blood 05/21/2024 11:0 9 PM SCREEN MAKING TECHNICIAN 05/21/2024 11:26 PM SCREEN MAKING TECHNICIAN us Cira Castro MD LAB BLOOD ORDERABL ES Final Result [facility] [place] [address] * (ABNORMAL) Urinalysis reflex to microscopic and culture Urine (05/21/2024 11:09 PM SCREEN MAKING TECHNICIAN) Color, ur Yellow Yellow Clarity, ur Clear Clear [facility] Specific gravity, ur 1.025 1.003 - 1.030 [facility] pH, urine 6.0 [facility] Comment: Interpretive Data U rine pH is affected by diet, medications, systemic acid-base disturbances, and renal tubular function. pH may affect urinary stone formation. For example, urine pH below 6.0 may help reduce the tendency for calcium phosphate stones and pH greater than 6.0 may reduce the tendency for uric acid stone formation. Source: [facility] Current Interpretive Data was last revised on 2017 Protein, ur ql 1+(A) Negative [facility] Glucose, ur ql Negative Negative [facility] Ketones, ur Negative Negative [facility] Bilirubin, ur Negative Negative [facility] Blood, ur Trace(A) Negative [facility] Urobilinogen, ur <2.0 <2.0 mg/dL [facility] Nitrite, ur Positive(A) Negative [facility] Leukocyte esterase, ur 1+(A) Negative [facility] UA reflex comment Reflex to microscopic UA will be performed. [facility] Urine 05/21/2024 11:0 9 PM SCREEN MAKING TECHNICIAN 05/21/2024 11:22 PM SCREEN MAKING TECHNICIAN us Angeline Soler MD LAB MICROBIOLOGY - GEN ERAL ORDERABLES Final Result [facility] [place] [address] * Respiratory pathogen panel Nasopharyngeal (05/21/2024 11:09 PM SCREEN MAKING TECHNICIAN) Pathologist [facility] Influenza A RNA Not Detected Not Detected Influenza B RNA Not Detected Not Detected [facility] RSV RNA Not Detected Not Detected [facility] COVID-19 RNA Not Detected Not Detected [facility] Coronavirus 229E RNA Not Detected Not Detected [facility] Coronavirus HKU1 RNA Not Detected Not Detected [facility] Coronavirus NL63 RNA Not Detected Not Detected [facility] Coronavirus OC43 RNA Not Detected Not Detected [facility] Adenovirus DNA Not Detected Not Detected [facility] Metapneumovirus RNA Not Detected Not Detected [facility] Rhinovirus/Enterov irus RNA Not Detected Not Detected [facility] Parainfluenza 1 RNA Not Detected Not Detected [facility] Parainfluenza 2 RNA Not Detected Not Detected [facility] Parainfluenza 3 RNA Not Detected Not Detected [facility] Parainfluenza 4 RNA Not Detected Not Detected [facility] B. pertussis DNA Not Detected Not Detected [facility] B. parapertussis DNA Not Detected Not Detected [facility] C. pneumoniae DNA Not Detected Not Detected [facility] M. pneumoniae DNA Not Detected Not Detected [facility] Nasopharyngeal 05/21/2024 11 :09 PM SCREEN MAKING TECHNICIAN 05/22/2024 4:48 AM SCREEN MAKING TECHNICIAN Narrative [facility] - 05/22/2024 5:55 AM SCREEN MAKING TECHNICIAN Is the Patient experiencing symptoms consistent with COVID?->No Surveillance testing for transplant patient?->No Interpretive Data The [employer] FilmArray Respiratory Panel (RP2.1) assay is a [...] assay has FDA clearance for testing of JOINTER MACHINE OPERATOR swabs. The performance of additional specimen types has been assessed by the performing laboratory. The performance characteristics of this assay have been determined by [facility] Molecular Infectious Disease Laboratory. Current interpretive data was last revised on 22. Angeline Soler MD LAB MICROBIOLOGY - GEN ERAL ORDERABLES Final Result [facility] Department [place] [address] * (ABNORMAL) Urinalysis, microscopic only (05/21/2024 11:09 PM SCREEN MAKING TECHNICIAN) WBC, ur 11-20(A) 0 - 5 /HPF RBC, ur 3-5(A) 0 - 2 /HPF [facility] Epithelial cells, squamous, ur 1-5 0 - 5 /HPF [facility] Bacteria, ur 3+(A) [facility] Yeast, ur Trace(A) [facility] Mucous, ur Present(A) [facility] Culture Reflex Comment Reflex to urine culture will be performed. [facility] Urine 05/21/2024 11:0 9 PM SCREEN MAKING TECHNICIAN 05/21/2024 11:21 PM SCREEN MAKING TECHNICIAN us Angeline Soler MD LAB URINE ORDERABLES F inal Result [facility] [place] [address] * (ABNORMAL) Urine culture Urine (05/21/2024 11:09 PM SCREEN MAKING TECHNICIAN) Report Amended Report - Complete: Greater than or equal to 100,000 colonies/mL of Escherichia coli Plus growth of clinically insignificant bacterial yesenia. (.) Organism ESCHERICHIA COLI [facility] Organism PLUS GROWTH OF CLINICALLY INSIGNIFICANT YESENIA. [facility] Urine 05/21/2024 11:0 9 PM SCREEN MAKING TECHNICIAN 05/22/2024 2:40 AM SCREEN MAKING TECHNICIAN Narrative [facility] - 05/25/2024 10:36 AM SCREEN MAKING TECHNICIAN Urine culture reflexed based upon urinalysis results. Testing performed by [facility] Microbiology Laboratory ([phone]) Organism Antibiotic Method Susceptibility Escherichia coli Ampicillin [...] ION Resistant Escherichia coli Fosfomycin INTERPRETATION Susceptible Angeline Soler MD LAB MICROBIOLOGY - GEN ERAL ORDERABLES Edited Result - Final Performing Organization Address [facility] Co de Phone Number [facility] [place] [address] * POCT glucose (05/21/2024 8:55 PM SCREEN MAKING TECHNICIAN) Glucose, POC 139 70 - 199 mg/dL Blood 05/21/2024 8:55 PM SCREEN MAKING TECHNICIAN 05/21/2024 8:55 PM SCREEN MAKING TECHNICIAN Result [facility] Notinfile Unknown LAB POCT ORDERABLES - DEVICE F inal Result Performing Organization Address [facility] de Phone Number [facility] [place] [address] * Troponin I high-sensitivity 4-hour (05/21/2024 7:26 PM SCREEN MAKING TECHNICIAN) Pathologist [facility] Trop I hs 4 <=17 ng/L Comment: Interpretive Data For further hscTnI resources including the diagnostic algorithm and an aid in interpretation, copy and paste this link: https://bjhlab.testcatalog.org/show/hsTrop-1 Current Interpretive Data last revised 2019. Trop I hs delta -1 ng/L [facility] Trop I hs interp Insignificant [facility] Blood 05/21/2024 7:26 PM SCREEN MAKING TECHNICIAN 05/21/2024 7:37 PM SCREEN MAKING TECHNICIAN Cira Castro MD LAB BLOOD ORDERABL ES Final Result Performing Organization Address [facility] Co de Phone Number [facility] [place] [address] * Troponin I high-sensitivity series (baseline, 2hr, 4hr, 6hr) (05/21/2024 4:20 PM SCREEN MAKING TECHNICIAN) Trop I hs 5 <=17 ng/L Comment: Interpretive Data For further hscTnI resources including the diagnostic algorithm and an aid in interpretation, copy and paste this link: https://bjhlab.testcatalog.org/show/hsTrop-1 Current Interpretive Data last revised 2019. Blood 05/21/2024 4:20 PM SCREEN MAKING TECHNICIAN 05/21/2024 4:50 PM SCREEN MAKING TECHNICIAN us Jimmie Zavala MD LAB BLOOD ORDERABLES Final Resul t [facility] Department [place] [address] * eGFR (05/21/2024 4:20 PM SCREEN MAKING TECHNICIAN) Pathologist [facility] eGFR >90 >=60 mL/min/1. 73 [...] last reviewed 2021. Blood 05/21/2024 4:20 PM SCREEN MAKING TECHNICIAN 05/21/2024 4:50 PM SCREEN MAKING TECHNICIAN us Jimmie Zavala MD LAB BLOOD ORDERABLES Final Resul t [facility] [place] [address] * (ABNORMAL) Differential, auto (05/21/2024 4:20 PM SCREEN MAKING TECHNICIAN) Neutrophil abs 8.0(H) 1.5 - 6.5 K/cumm Imm gran abs 0.0 0.0 - 0.1 K/cumm [facility] Lymphocyte abs 2.4 0.8 - 3.3 K/cumm [facility] Monocyte abs 0.8 0.2 - 0.8 K/cumm [facility] Eosinophil abs 0.2 0.0 - 0.5 K/cumm [facility] Basophil abs 0.0 0.0 - 0.1 K/cumm [facility] Neutrophil pct 69.4 % [facility] Comment: Interpretive Data Percent cell count reference ranges are not reported, since discordance with absolute values may lead to misinterpretation of CBC data. Current Interpretive Data was last revised on 2017. Imm gran pct 0.4 % [facility] Comment: Interpretive Data Percent cell count reference ranges are not reported, since discordance with absolute values may lead to misinterpretation of CBC data. Current Interpretive Data was last revised on 2017. Lymphocyte pct 21.4 % [facility] Comment: Interpretive Data Percent cell count reference ranges are not reported, since discordance with absolute values may lead to misinterpretation of CBC data. Current Interpretive Data was last revised on 2017. Monocyte pct 6.7 % [facility] Comment: Interpretive Data Percent cell count reference ranges are not reported, since discordance with absolute values may lead to misinterpretation of CBC data. Current Interpretive Data was last revised on 2017. Eosinophil pct 1.8 % [facility] Comment: Interpretive Data Percent cell count reference ranges are not reported, since discordance with absolute values may lead to misinterpretation of CBC data. Current Interpretive Data was last revised on 2017. Basophil pct 0.3 % [facility] Comment: Interpretive Data Percent cell count reference ranges are not reported, since discordance with absolute values may lead to misinterpretation of CBC data. Current Interpretive Data was last revised on 2017. Blood 05/21/2024 4:20 PM SCREEN MAKING TECHNICIAN 05/21/2024 4:50 PM SCREEN MAKING TECHNICIAN us Jimmie Zavala MD LAB BLOOD ORDERABLES Final Resul t Performing Organization Address City/[facility] Co de Phone Number [facility] [place] [address] * (ABNORMAL) CBC with auto differential (05/21/2024 4:20 PM SCREEN MAKING TECHNICIAN) Pathologist [facility] WBC 11.4(H) 3.8 - 9.9 K/cumm Hgb 14.0 11.9 - 15.5 g/dL [facility] Hct 43.6 35.6 - 45.5 % [facility] Plt 286 150 - 400 K/cumm [facility] MPV 9.9 9.1 - 12.3 fL [facility] RBC 4.83 3.90 - 5.20 M/cumm [facility] MCV 90.3 81.3 - 96.4 fL [facility] MCH 29.0 27.1 - 33.3 pg [facility] MCHC 32.1(L) 32.3 - 35.7 g/dL [facility] RDW CV 13.6 11.1 - 14.9 % [facility] RDW SD 45.6 35.7 - 48.1 fL [facility] NRBC abs 0.00 0.00 - 0.01 K/cumm [facility] Blood Venous blood specimen / Unknown 05/21/2024 4:20 PM SCREEN MAKING TECHNICIAN 05/21/2024 4:50 PM SCREEN MAKING TECHNICIAN us Jimmie Zavala MD LAB BLOOD ORDERABLES Final Resul t Performing Organization Address City/[facility]/ZIP Co de Phone Number [facility] Department [place] [address] * (ABNORMAL) Hemoglobin A1c (05/21/2024 4:20 PM SCREEN MAKING TECHNICIAN) Hgb A1C 8.7(H) 4.0 - 5.6 % Estimated Average Glucose 203 mg/dL [facility] Comment: The ADA recommends reporting an estimated Average Glucose (eAG) with all Hemoglobin A1c results using the equation derived from a study of 507 normal and diabetic adults. Minority populations were underrepresented and children were not included. (Diabetes Care 2020; 43(S1): S66-S76). The eAG is not equivalent to a fasting glucose. Blood 05/21/2024 4:20 PM SCREEN MAKING TECHNICIAN 05/21/2024 4:55 PM SCREEN MAKING TECHNICIAN us Leo Henry MD LAB BLOOD ORDERABLES Final Result [facility] Department [place] [address] * (ABNORMAL) Lipid panel (05/21/2024 4:20 PM SCREEN MAKING TECHNICIAN) Cholesterol 205(H) 30 - 199 mg/dL Comment: [...] revised on 2017. Triglycerides 92 <=149 mg/dL [facility] Comment: Interpretive Data Ages < or [...] 2017. HDL 55 >=40 mg/dL [facility] Comment: Interpretive Data Ages < or = [...] LDL, calculated 134(H) <=129 mg/dL [facility] Comment: Interpretive Data Ages < or = [...] 2023. Non-HDL Cholesterol 150 mg/dL [facility] Comment: Interpretive Data Ages < or = [...] last revised on 2017. Chol/HDL ratio 4 [facility] Blood 05/21/2024 4:20 PM SCREEN MAKING TECHNICIAN 05/21/2024 4:50 PM SCREEN MAKING TECHNICIAN Narrative [facility] - 05/22/2024 4:17 PM SCREEN MAKING TECHNICIAN Reflex Leo Henry MD LAB BLOOD ORDERABLES Final Result [facility] [place] [address] * Comprehensive metabolic panel (05/21/2024 4:20 PM SCREEN MAKING TECHNICIAN) Sodium 140 135 - 145 mmol/L Potassium, pl 4.3 3.3 - 4.9 mmol/L [facility] Chloride 100 97 - 110 mmol/L [facility] CO2 29 22 - 32 mmol/L [facility] Anion gap 11 2 - 15 mmol/L [facility] BUN 14 6 - 25 mg/dL [facility] Creatinine 0.63 0.60 - 1.10 mg/dL [facility] Glucose 119 70 - 199 mg/dL [facility] Comment: [...] 2022. Calcium 10.0 8.5 - 10.3 mg/dL [facility] Bilirubin, total 0.7 0.1 - 1.2 mg/dL [facility] Protein, pl 8.5 6.5 - 8.5 g/dL [facility] Albumin 3.9 3.5 - 5.0 g/dL [facility] Alk phos 83 40 - 130 Units/L [facility] ALT 23 7 - 45 Units/L [facility] AST 22 10 - 45 Units/L [facility] Blood 05/21/2024 4:20 PM SCREEN MAKING TECHNICIAN 05/21/2024 4:50 PM SCREEN MAKING TECHNICIAN Jimmie Zavala MD LAB BLOOD ORDERABLES Final Resul t [facility] [place] [address] * XR Chest Pa Lateral 2 Views (05/21/2024 2:23 PM SCREEN MAKING TECHNICIAN) Anatomical Region Laterality Modality Body, Chest N/A Computed Radiogr aphy 05/21/2024 2:28 PM SCREEN MAKING TECHNICIAN Impressions 05/21/2024 2:36 PM SCREEN MAKING TECHNICIAN The current study is compared with the [...] Jaime Neves M.D. Narrative 05/21/2024 2:36 PM SCREEN MAKING TECHNICIAN EXAMINATION: 2 view chest radiograph Procedure Note [...] Result * POCT glucose (05/21/2024 1:39 PM SCREEN MAKING TECHNICIAN) Glucose, POC 113 70 - 199 mg/dL Blood 05/21/2024 1:39 PM SCREEN MAKING TECHNICIAN 05/21/2024 1:39 PM SCREEN MAKING TECHNICIAN us Notinfile Unknown LAB POCT ORDERABLES - DEVICE F inal Result [facility] [place] [address] * ECG 12-LEAD (05/21/2024 1:36 PM SCREEN MAKING TECHNICIAN) Narrative [facility] - 05/21/2024 1:36 PM SCREEN MAKING TECHNICIAN Gil Mcgrath MD 05/21/2024 1:37 PM ECG [...] in the ED Gil Mcgrath MD 05/21/24 [id number] Jimmie Zavala MD ECG ORDERABLES Final Result [facility] * Axillary Breast Left (05/21/2024 12:13 PM SCREEN MAKING TECHNICIAN) Anatomical Region Laterality Modality Upper Extremities Left Ultrasound 05/21/2024 12:2 3 PM SCREEN MAKING TECHNICIAN Impressions 05/21/2024 12:23 PM SCREEN MAKING TECHNICIAN 1. Limited ultrasound due to extensive edema [...] Alicia Wilcox M.D. Narrative 05/21/2024 12:23 PM SCREEN MAKING TECHNICIAN EXAMINATION: LEFT AXILLARY ULTRASOUND HISTORY: Patient is [...] by: Alicia Wilcox M.D. Khris Arthur MD [facility] US PROCEDURES Fi nal Result * (ABNORMAL) Urinalysis reflex to microscopic and culture Urine, clean voided (05/14/2024 4:50 PM SCREEN MAKING TECHNICIAN) Color, ur Straw Yellow Clarity, ur Clear Clear [facility] Specific gravity, ur 1.025 1.003 - 1.030 [facility] pH, urine 5.5 [facility] Comment: Interpretive Data U rine pH is affected by diet, medications, systemic acid-base disturbances, and renal tubular function. pH may affect urinary stone formation. For example, urine pH below 6.0 may help reduce the tendency for calcium phosphate stones and pH greater than 6.0 may reduce the tendency for uric acid stone formation. Source: [employer] Current Interpretive Data was last revised on 2017 Protein, ur ql Trace Negative [facility] Glucose, ur ql Negative Negative [facility] Ketones, ur Negative Negative [facility] Bilirubin, ur Negative Negative [facility] Blood, ur Trace(A) Negative [facility] Urobilinogen, ur <2.0 <2.0 mg/dL [facility] Nitrite, ur Negative Negative [facility] Leukocyte esterase, ur Negative Negative [facility] UA reflex comment Reflex to microscopic UA will be performed. [facility] Urine, clean voided 05/14/2024 4:50 PM SCREEN MAKING TECHNICIAN 05/14/2024 7:18 PM SCREEN MAKING TECHNICIAN Khris Arthur MD LAB MICROBIOLOGY - G ENERAL ORDERABLES Final Result Performing Organization Address [facility] de Phone Number [facility] [place] [address] * (ABNORMAL) Urinalysis, microscopic only (05/14/2024 4:50 PM SCREEN MAKING TECHNICIAN) WBC, ur 0-5 0 - 5 /HPF RBC, ur 0-2 0 - 2 /HPF [facility] Epithelial cells, squamous, ur 1-5 0 - 5 /HPF [facility] Bacteria, ur Trace(A) [facility] Mucous, ur Present(A) [facility] Culture Reflex Comment Reflex conditions for urine culture (WBC >10) not met. [facility] Urine, clean voided 05/14/2024 4:50 PM SCREEN MAKING TECHNICIAN 05/14/2024 7:18 PM SCREEN MAKING TECHNICIAN Khris Arthur MD LAB URINE ORDERABLES Final Result Performing Organization Address [facility] Co de Phone Number [facility] [place] [address] * XR Ribs Left 2 Views (05/14/2024 4:44 PM SCREEN MAKING TECHNICIAN) Anatomical Region Laterality Modality Rib, Chest Left Digital Radiogra phy 05/14/2024 4:54 PM SCREEN MAKING TECHNICIAN Impressions 05/14/2024 4:54 PM SCREEN MAKING TECHNICIAN 1. No displaced left rib fracture. Electronically signed by: Santiago Gan D.O. Narrative 05/14/2024 4:54 PM SCREEN MAKING TECHNICIAN EXAMINATION: XR RIBS LEFT 2 VIEWS HISTORY: [...] Bone mineral density was performed on a [employer] Discovery Densitometer. Based on machine cross-calibration and [...] by the International Society of Clinical Densitometry. [id number] us Khris Arthur MD IMG DXA PROCEDURES [...] agrees with it. ACC# Date Time Exam [id number] Aug 19, 2016 14:27:00 [facility] 72366 Diag Mamm, inc CAD, unilat L Technologist(s): Carla Harris; ; [id number] Aug 19, 2016 15:39:00 [facility] 61382 Breast US unilateral, ltd L ACC# Date Time Exam [id number] Aug 19, 2016 14:27:00 [facility] 39846 Diag Mamm, inc CAD, unilat L Technologist(s): Carla Harris; ; [id number] Aug 19, 2016 15:39:00 [facility] 51267 Breast US unilateral, ltd L EXAMINATION: LEFT [...] SARABIA M.D. on Aug 19 2016 4:20P [id number] Procedure Note Miscellaneous, Not In File / Provider, MD Tyler - 09/17/2016 ANTHONY SARABIA M.D. JUDY RINCON M.D. FINAL REPORT The radiology attending physician has personally reviewed this study, and has reviewed and/or edited this written report and agrees with it. ACC# Date Time Exam [id number] Aug 19, 2016 14:27:00 [facility] 64329 Diag Mamm, inc CAD, unilat L Technologist(s): Carla Harris; ; [id number] Aug 19, 2016 15:39:00 [facility] 51593 Breast US unilateral, ltd L ACC# Date Time Exam [id number] Aug 19, 2016 14:27:00 [facility] 84837 [employer] Mamm, inc CAD, unilat L Technologist(s): Carla Harris; ; [id number] Aug 19, 2016 15:39:00 [facility] 31860 Breast US unilateral, ltd L EXAMINATION: LEFT [...] SARABIA M.D. on Aug 19 2016 4:20P [id number] us Not In File Miscellaneous IMG MAMMO PROCEDURES F inal Result from Last 3 Months or Most Recently Relevant to Health Maintenance Insurance [facility] MEDICARE ADVANTAGE [facility] MEDICARE ADVANTAGE [employer] MEDICARE ADVANTAGE Advance Directives For more information, please contact: [phone] Documents on File Type Date Recorded Patient Implementation Technician Expl anation ADVANCE DIRECTIVE 12/23/2021 2:49 PM Power of Auto Body Customizer-Medical ADVANCE DIRECTIVE 12/23/2021 2:49 PM Living Will [...] Relationship Healthcare Agent Relationshi p Communication Yunior Marqeus Daughter Health Care Agent Jimmie Marques Spouse First Alternate Health Care Agent Care Teams Process Control Board Operator Relationship Specialty Start Date End Date Justen Gale MD 2 [facility] [address] [place] [address] PCP - General 10/09/17 Liu Jerez MD Consulting Physician Gastroenterology 07/28/17 [place] [address] [facility] [address] [place] [address] Consulting Physician Pulmonary Disease 08/03/17 Khris Arthur MD [address] [facility] [address] [place] [address] Medical Oncologist/Supervisor Maintenance And Custodians Medical Oncology 10/23/17 [place] [address] [facility] [address] [place] [address] Surgeon Orthopedic Surgery 10/23/17 [place] [address] [facility] [address] [place] [address] Consulting Physician Pain Management 10/23/17 [place] [address] [facility] [address] [place] [address] Referring Physician General Surgery 01/26/18 [place] [address] [facility] [address] [place] [address] Consulting Physician Neurology 01/26/18
--- OUTSIDE RECORDS SUMMARY | 2024-07-21 21:51 | XMS_ITS | Encounter Summary ---
Author Organization [facility] Address [address] [place] [address] Phone Care Team Providers Care Manager Lvn Name Role Phone Justen Gale MD Primary Care Provider [phone] David Roberts APRN, WASTE MACHINE TENDER Unavailable [phone] Annel Rod MD Unavailable Reason for Visit * Reason Comments Medication Refill Encounter Details Date Type Department Care Team (Late st Contact Info) Description 07/14/2022 Refill [facility] - Family Medicine [facility] [address] [place] [id number] Justen Gale MD [address] [address] Medication Refill Social History Tobacco Use Types [...] as of this encounter Care Teams Manager Lvn Relationship Specialty Start Date End Date Justen Gale MD #2 [facility] [address] [place] [address] PCP - General Family Medicine 10/17/17 David Roberts APRN, WASTE MACHINE TENDER [address] [place] [address] Nurse Practitioner Advanced Practice Nurse 01/31/22 Annel Rod MD #2 [facility] [address] [place] [address] Consulting Physician Endocrinology 07/01/22 documented as of this encounter
--- OUTSIDE RECORDS SUMMARY | 2024-07-21 21:51 | XMS_ITS | Encounter Summary ---
Author Organization [facility] Address [address] [place] [address] Phone Care Team Providers Care Plaster Mold Maker Name Role Phone Justen Gale MD Primary Care Provider [phone] David Roberts APRN, FILE CONVERSION OPERATOR Unavailable [phone] Annel Rod MD Unavailable Reason for Visit * Reason Comments Medication Refill Encounter Details Date Type Department Care Team (Late st Contact Info) Description 07/06/2023 Refill [facility] - Family Medicine [facility] [address] [place] [id number] Justen Gale MD #[address] [address] Medication Refill Social History Tobacco Use Types [...] Dept 06/27/23 Office Visit [facility] [place] 01/17/23 Office Visit [facility] Showing recent visits within past 270 [...] documented as of this encounter Care Teams Plaster Mold Maker Relationship Specialty Start Date End Date Justen Gale MD #[address] [address] PCP - General Family Medicine 10/17/17 David Roberts ART THERAPIST, FILE CONVERSION OPERATOR [address] [place] [address] Nurse Practitioner Advanced Practice Nurse 01/31/22 Annel Rod MD [facility] [address] [address] Consulting Physician Endocrinology 07/01/22 documented as of this encounter
--- OUTSIDE RECORDS SUMMARY | 2024-07-21 21:51 | XMS_ITS | Encounter Summary ---
Author Organization [facility] Address [address] [place] [address] Phone Care Team Providers Care Delivery Professional Name Role Phone Liu Jerez MD Unavailable Albert Corbin MD Unavailable [phone] Justen Gale MD Primary Care Provider Khris Arthur MD Unavailable [phone] Ko Melendez MD Unavailable [phone] John Paul Moyer MD Unavailable Annel Rod MD Unavailable Anali MARSHALL MD, Carlos M. Unavailable [phone] Encounter Details Date Type Department Care Team [...] Legal Sex Female 12:24 AM SEWING MACHINE OPERATOR Gender Identity Not on file [...] COVID: Recovered 02/10/2022 02/10/2022 06/10/2022 3:05 AM SEWING MACHINE OPERATOR Exposure, COVID-19 Comment:Added automatically based on COVID19 lab answers indicating exposure risk 02/11/2022 02/11/2022 02/15/2022 9:06 AM C DT COVID: Suspected 05/14/2022 05/14/2022 05/14/2022 10:41 AM SEWING MACHINE OPERATOR COVID: Suspected 06/07/2022 06/07/2022 06/07/2022 12:28 PM SEWING MACHINE OPERATOR COVID: Suspected 06/21/2022 06/21/2022 06/21/2022 2:12 AM SEWING MACHINE OPERATOR COVID: Suspected 10/05/2022 10/05/2022 10/05/2022 7:40 PM CDT COVID: Suspected 01/04/2024 01/04/2024 01/04/2024 10:30 PM CDT COVID: Suspected 02/14/2024 02/14/2024 02/15/2024 12:36 AM CDT COVID: Suspected 07/01/2024 07/01/2024 07/01/2024 2:53 PM CDT COVID: Suspected 07/01/2024 07/01/2024 07/02/2024 3:05 AM CDT documented as of this encounter Care Teams Delivery Professional Relationship Specialty Start Date End Date Justen Gale MD 2 [facility] [address] [place] [address] PCP - General 10/09/17 Liu Jerez MD Consulting Physician Gastroenterology 07/28/17 [place] [address] [facility] [address] [place] [address] Consulting Physician Pulmonary Disease 08/03/17 [place] [address] [place] [address] [address] [place] [address] Medical Oncologist/Squaring Machine Operator Medical Oncology 10/23/17 [place] [address] [address] Surgeon Orthopedic Surgery 10/23/17 [place] [address] [facility] [address] [place] [address] Consulting Physician Pain Management 10/23/17 [place] [address] [address] Referring Physician General Surgery 01/26/18 [place] [address] [facility] [address] [place] [address] Consulting Physician Neurology 01/26/18 documented as of this encounter
--- OUTSIDE RECORDS SUMMARY | 2024-07-21 21:51 | XMS_ITS | Encounter Summary ---
Author Organization [facility] Address [address] [place] [address] Phone Care Team Providers Care Revival Clerk Name Role Phone Justen Gale MD Primary Care Provider [phone] David Roberts APRN, PHARMACY HELPER Unavailable [phone] Annel Rod MD Unavailable Encounter Details Date Type Department Care Team (Late st Contact Info) Description 06/05/2020 Lab [facility] [address] [place] [address] Pili Elkins APRN, PHARMACY HELPER #[address] [address] Frequency of micturition Social History [...] COVID-19? No / Unsure 2020 11:37 AM ANNEALER documented as of this encounter Plan of Treatment Not on file documented as of this encounter Procedures Procedure Name Priority Date/Time Associated Diagnosis Comments URINALYSIS REFLEX IF INDICATED BY ABNORMAL RESULTS Routine 06/05/2020 4:45 PM ANNEALER Frequency of micturition documented in this encounter Results * (ABNORMAL) URINALYSIS REFLEX IF INDICATED BY ABNORMAL RESULTS (06/05/2020 4:45 PM ANNEALER) SPECIFIC GRAVITY 1.020 1.003 - 1.030 06/05/2020 5:19 PM ANNEALER [facility] URINE PH 5.0 5.0 - 9.0 06/05/2020 5:19 PM ANNEALER [facility] WBC ESTERASE Negative Negative 06/05/2020 5:19 PM ANNEALER [facility] NITRITE Negative Negative 06/05/2020 5:19 PM [facility] PROTEIN, RANDOM URINE Negative Negative 06/05/2020 5:19 PM [facility] URINE GLUCOSE, QUAL Negative Negative 06/05/2020 5:19 PM [facility] URINE KETONES Negative Negative 06/05/2020 5:19 PM ANNEALER [facility] UROBILINOGEN Normal Normal mg/dL 06/05/2020 5:19 PM [facility] URINE BILIRUBIN Negative Negative 5:19 PM [facility] URINE BLOOD 25 /uL(A) Negative leandro/ul 06/05/2020 5:19 PM [facility] URINALYSIS COLOR Yellow 06/05/19 5:19 PM [facility] URINALYSIS CLARITY Clear 06/05/2020 5:19 PM [facility] WBC (Urine) 0-5 Negative, 0-5 /hpf 06/05/2020 5:19 PM [facility] URINE RBC'S 3-5(A) Negative, 0-2 /hpf 06/05/2020 5:19 PM [facility]ER [facility] EPITHELIAL CELLS Small amount /lpf 2020 5:19 PM AN[facility]ALER [facility] BACTERIA, URINE Few(A) Negative /hpf 06/05/2020 5:19 PM AN[facility]ALER [facility] Urine URINE SPECIMEN / Unknown Non-Phlebotomy Collection / Unknown 06/05/2020 4:45 PM ANNEALER 06/05/2020 5:00 PM ANNEALER us Pili Elkins APRN, CNP URINE ORDERABLES Fin al Result [facility] #1 [place] [address] documented in this encounter Visit Diagnoses Diagnosis Frequency of micturition Urinary frequency documented in this encounter Additional Health Concerns Assessment Noted Time PHQ-9 Depression Total Score: 0 09/08/19 19 1:00 PM CDT documented as of this encounter Care Teams Revival Clerk Relationship Specialty Start Date End Date Justen Gale MD #[address] [address] PCP - General Family Medicine 10/17/17 David Roberts APRN, PHARMACY HELPER #2 [place] [address] Nurse Practitioner Advanced Practice Nurse 01/31/22 Annel Rod MD #[address] [address] Consulting Physician Endocrinology 07/01/22 documented as of this encounter
--- OUTSIDE RECORDS SUMMARY | 2024-07-21 21:51 | XMS_ITS | Encounter Summary ---
Author Organization [facility] Address [address] [place] [address] Phone Care Team Providers Care Production Operator Name Role Phone Justen Gale MD Primary Care Provider [phone] David Roberts APRN, MANAGER INFUSION Unavailable [phone] Annel Rod MD Unavailable Reason for Visit * Reason Comments Medication Refill Encounter Details Date Type Department Care Team (Late st Contact Info) Description 08/07/2023 Refill [facility] - End[facility]ology - [place] #2 [place] [address] Annel Rod MD #[address] [address] Medication Refill Social History Tobacco [...] as of this encounter Care Teams Production Operator Relationship Specialty Start Date End Date Justen Gale MD #2 [facility] [address] [place] [address] PCP - General Family Medicine 10/17/17 David Roberts APRN, NETTA #2 [place] [address] Nurse Practitioner Advanced Practice Nurse 01/31/22 Annel Rod MD #[address] [address] Consulting Physician Endocrinology 07/01/22 documented as of this encounter
--- OUTSIDE RECORDS SUMMARY | 2024-07-21 21:51 | XMS_ITS | Encounter Summary ---
Author Organization [facility] Address [address] [place] [address] Phone Care Team Providers Care Certified Diabetes Educator Name Role Phone Justen Gale MD Primary Care Provider [phone] David Roberts APRN, BOX COVERING MACHINE OPERATOR Unavailable [phone] Annel Rod MD Unavailable Reason for Visit * Reason Comments Medication Refill Encounter Details Date Type Department Care Team (Late st Contact Info) Description 07/12/2022 Refill [facility] #2 [place] [address] Justen Gale MD #[address] [address] Medication Refill Social History Tobacco Use Types [...] Office Visit Pili Elkins APRN, NETTA [facility] [place] 05/02/22 Office Visit Justen Gale MD [facility] [place] 03/03/22 Office Visit Pili Elkins APRN, BOX COVERING MACHINE OPERATOR [facility] [place] 01/03/22 Office Visit Dannielle Berg PAC [facility] [place] 12/07/21 Office Visit Pili Elkins APRN, BOX COVERING MACHINE OPERATOR [facility] [place] 11/09/21 Office Visit Pili Elkins APRN, NETTA [facility] [place] 10/08/21 Office Visit Angelito Alegria APRN, NETTA [facility] [place] 08/30/21 Office Visit Justen Gale MD [facility] Showing recent visits within past 365 [...] as of this encounter Care Teams Certified Diabetes Educator Relationship Specialty Start Date End Date Justen Gale MD #2 [facility] [address] [place] [address] PCP - General Family Medicine 10/17/17 David Roberts APRN, BOX COVERING MACHINE OPERATOR #2 [place] [address] Nurse Practitioner Advanced Practice Nurse 01/31/22 Annel Rod MD #2 [facility] [address] [place] [address] Consulting Physician Endocrinology 07/01/22 documented as of this encounter
--- OUTSIDE RECORDS SUMMARY | 2024-07-21 21:51 | XMS_ITS | Encounter Summary ---
Author Organization [facility] Address [address] [place] [address] Phone Care Team Providers Care Sheet Rock Nailer Name Role Phone Justen Gale MD Primary Care Provider [phone] David Roberts APRN, ALTERATION HAND Unavailable [phone] Annel Rod MD Unavailable Reason for Visit * Reason Comments Medication Refill Encounter Details Date Type Department Care Team (Late st Contact Info) Description 08/30/2022 Refill [facility] #2 [place] [phone] Justen Gale MD #[address] [address] Medication Refill Social History Tobacco Use Types [...] 07/05/22 Office Visit Pili Elkins APRN, NETTA [facility] [place] 05/02/22 Office Visit Justen Gale MD [facility] [place] 03/03/22 Office Visit Pili Elkins APRN, NETTA [facility] [place] 01/03/22 Office Visit Dannielle Berg PAC [facility] [place] 12/07/21 Office Visit Pili Elkins APRN, NETTA [facility] [place] 11/09/21 Office Visit Pili Elkins APRN, NETTA [facility] [place] 10/08/21 Office Visit Angelito Alegria APRN, CNP [facility] [place] 08/30/21 Office Visit [facility] Show[facility] recent visits within past 365 [...] as of this encounter Care Teams Sheet Rock Nailer Relationship Specialty Start Date End Date Justen Gale MD #[address] [address] PCP - General Family Medicine 10/17/17 David Roberts APRN, ALTERATION HAND #2 [place] [address] Nurse Practitioner Advanced Practice Nurse 01/31/22 Annel Rod MD #[address] [phone] Consulting Physician Endocrinology 07/01/22 documented as of this encounter
--- OUTSIDE RECORDS SUMMARY | 2024-07-21 21:51 | XMS_ITS | Encounter Summary ---
Author Organization [facility] Address [address] [place] [address] Phone Care Team Providers Care Carbide Operator Name Role Phone Justen Gale MD Primary Care Provider [phone] David Roberts APRN, ELECTRON BEAM OPERATOR Unavailable [phone] Annel Rod MD Unavailable Reason for Visit * Reason Comments Medication Refill Encounter Details Date Type Department Care Team (Late st Contact Info) Description 03/13/2021 Refill [facility] [address] [place] [address] Justen Gale MD #[address] [address] Medication Refill Social History Tobacco Use Types [...] COVID-19? No / Unsure 03/02/2021 5:05 PM STERILE TECH documented as of this encounter Plan of Treatment Not on file documented as of this encounter Visit Diagnoses Not on filedocumented in this encounter Additional Health Concerns Assessment Noted Time PHQ-9 Depression Total Score: 0 07/21/19 21 3:00 PM CDT documented as of this encounter Care Teams Carbide Operator Relationship Specialty Start Date End Date Justen Gale MD #2 [facility] [address] [place] [address] PCP - General Family Medicine 10/17/17 David Roberts APRN, NETTA #2 [place] [address] Nurse Practitioner Advanced Practice Nurse 01/31/22 Annel Rod MD #2 [facility] [address] [place] [address] Consulting Physician Endocrinology 07/01/22 documented as of this encounter
--- OUTSIDE RECORDS SUMMARY | 2024-07-21 21:51 | XMS_ITS | Clinical Summary ---
Author Organization [facility] Address [address] [place] [address] Phone Care Team Providers Care Can Dragger Name Role Phone Justen Gale MD Primary Care Provider [phone] Allergies Active Allergy Reactions Criticality Noted Date [...] 1:41 AM CDT Height 154.9 cm (5' 1) 09/29/2017 1:41 AM CDT Body Mass Index [...] - 6.0 % 09/29/2017 10:28 AM CDT [employer] [facility] EST. AVG GLUCOSE, A1C 186 mg/dL 09/29/2017 10:28 AM CDT [email or web address] [facility] Blood Venipuncture / Unknown 09/28/2017 8:41 PM CDT 09/28/2017 8:46 PM CDT Narrative [facility] - 09/29/2017 10:28 AM CDT HGB A1C INTERPRETATION NORMAL: <5.7% PRE-DIABETES: 5.7 - 6.4% DIABETES: 6.5% OR GREATER us Francisco Castaneda MD CHEMISTRY ORDERABLES Final Resul t [facility] [email or web address] [facility]# [id number] [address] [facility] [place] [address] * (ABNORMAL) LIPID PANEL (09/28/2017 8:41 PM CDT) CHOLESTEROL 174 <200 mg/dL 09/30/2017 2:45 AM CDT [facility] [email or web address] [facility] TRIGLYCERIDE 109 <150 mg/dL 09/30/2017 2:45 AM CDT [facility] [email or web address] [facility] HDL 45 40 - 59 mg/dL 09/30/2017 2:45 AM CDT [facility] [email or web address] [facility] LDL CALCULATED 107(H) <100 mg/dL 09/30/2017 2:45 AM CDT [facility] [email or web address] [facility] NON-HDL CHOLESTEROL 129 <130 mg/dL 09/30/2017 2:45 AM CDT [facility] [email or web address] [facility] Blood Venipuncture / Unknown 09/28/2017 8:41 PM CDT 09/28/2017 8:46 PM CDT Narrative [facility] - 09/30/2017 2:45 AM CDT TOTAL [...] Castaneda MD CHEMISTRY ORDERABLES Final Resul t [facility] [email or web address] [facility] [id number] [address] [facility] [place] [address] from Last 3 Months or Most Recently Relevant to [place] [address] Advance Directives For more information, please contact: [phone] * Full Code (Latest Code Status on File) Date Activated Date Inactivated Comments 09/29/2017 7:45 AM 09/30/2017 9:14 PM * Full Code Date Activated Date Inactivated Comments 09/29/2017 1:25 AM 09/29/2017 7:45 AM Care Teams Can Dragger Relationship Specialty Start Date End Date Justen Gale MD [address] [facility] [address] [place] [address] PCP - General Cardiovascular Disease 09/14/17
--- OUTSIDE RECORDS SUMMARY | 2024-07-21 21:51 | XMS_ITS | CONTINUITY OF CARE DOCUMENT ---
Author Name ayesha, ayesha Address Unknown Organization [facility] Address [address] [facility] [address] [place] [address] Phone [phone] Care Team Providers Care Labor Contract Analyst Name Role Phone Yamilet DURÁN, Maico Unavailable ALANIS DURÁN, BRIDGETT Unavailable ALLISON DURÁN, CLARISSE Unavailable [phone] PROBLEMS Condition Status Date Provider Notes Shortness of breath active Ivory Rodriguez Palpitations active Radha Seals INSURANCE PROVIDERS Payer name Policy type / Coverage type Basile red democrat ID UHC MEDICARE COMPLETE HMO Other [id number] [facility] Medicaid 2 [id number] HISTORY OF PROCEDURES Procedure Date Procedure Name Provider Procedure Notes S tatus Stress EKG Carmine Silverio MD complet ed Regadenoson, 4 units Sergey Saldana MD completed Cardiolite, 2 units Sergey Saldana MD completed SPECT Images Carmine Silverio MD compl eted Holter, 24 or 48 Maico Woodard MD co mpleted
--- OUTSIDE RECORDS SUMMARY | 2024-07-21 21:51 | XMS_ITS | Encounter Summary ---
Author Organization [facility] Address [address] [place] [address] Phone Care Team Providers Care Setter Induction Heating Equipment Name Role Phone Justen Gale MD Primary Care Provider [phone] David Roberts APRN, CABLEWAY OPERATOR Unavailable [phone] Annel Rod MD Unavailable Reason for Visit * Reason Comments Medication Refill Encounter Details Date Type Department Care Team (Late st Contact Info) Description 09/30/2023 Refill [facility] - Endocrinology - [place] #2 [place] [address] Annel Rod MD #[address] [address] Medication Refill Social History Tobacco [...] documented as of this encounter Care Teams Setter Induction Heating Equipment Relationship Specialty Start Date End Date Justen Gale MD #2 [facility] [address] [place] [address] PCP - General Family Medicine 10/17/17 David Roberts APRN, NETTA #2 [place] [address] Nurse Practitioner Advanced Practice Nurse 01/31/22 Annel Rod MD #[address] [address] Consulting Physician Endocrinology 07/01/22 documented as of this encounter
--- OUTSIDE RECORDS SUMMARY | 2024-07-21 21:51 | XMS_ITS | Encounter Summary ---
Author Organization [facility] Address [address] [place] [address] Phone Care Team Providers Care Farm Equipment Operator Name Role Phone Justen Gale MD Primary Care Provider [phone] David Roberts APRN, INSULATION ENGINEMAN Unavailable [phone] Annel Rod MD Unavailable Reason for Visit * Reason Comments Medication Refill Encounter Details Date Type Department Care Team (Late st Contact Info) Description 04/13/2023 Refill [facility] - Endocrinology - [place] #2 [place] [address] Annel Rod MD #[address] [address] Medication Refill Social History [...] Jennifer Wang, RN - 04/14/2023 10:00 AM COLLEGE HIRE Requested Prescriptions Pending Prescriptions Disp Refills ??? Continuous Blood Gluc Sensor (FreeStyle Eileen 2 Sensor) Misc [Pharmacy Med Name: FREESTYLE EILEEN 2 SENSOR] 6 Each 1 Sig: APPLY 1 SENSOR AND WEAR FOR 14 DAYS TO CHECK BLOOD SUGAR Next appt: 05/30/2023 EGE HIRE documented in this encounter Plan of Treatment Not on file documented as of this encounter Visit Diagnoses Not on filedocumented in this encounter Additional Health Concerns Assessment Noted Time PHQ-9 Depression Total Score: 8 01/18/20 23 2:24 PM CDT documented as of this encounter Care Teams Farm Equipment Operator Relationship Specialty Start Date End Date Justen Gale MD #[address] [address] PCP - General Family Medicine 10/17/17 David Roberts APRN, NETTA #2 [place] [address] Nurse Practitioner Advanced Practice Nurse 01/31/22 Annel Rod MD #[address] [address] Consulting Physician Endocrinology 07/01/22 documented as of this encounter
--- OUTSIDE RECORDS SUMMARY | 2024-07-21 21:51 | XMS_ITS | Clinical Summary ---
Author Organization [facility] Address [facility] [place] [address] Care Team Providers Care Drop Hammer Set Up Operator Name Role Phone Meena Bansal MD Unavailable [phone] Justen Gale MD Primary Care Provider [phone] Allergies Active Allergy Reactions Criticality Noted Date [...] reflux disease 09/05/2020 Malignant tumor of breast ([facility]) 08/22 Knee pain 09/05/2020 Other chronic pain [...] 03/18/2018 Assessment & Plan (03/18/2018 2:55 AM SEALS ENGRAVER): Acute, patient reported as epigastric pain however may be atypical presentation. Troponins negative x2. Also in differential is GERD, PUD - Admit to observation -Follow-up troponins -Monitor vitals -N.p.o. at midnight - Stress echo in a.m. - Consider cardiology consult based on results of stress test -Begin Protonix Epigastric pain 03/18/2018 Assessment & Plan (03/18/2018 5:39 AM SEALS ENGRAVER): Acute, non radiating, worsens with lying down, [...] Speech impairment 01/30/2018 CVA (cerebral vascular accident) ([facility] HHS/ C) 01/24/2018 Neck pain on right side 12/01/2017 Anxiety and depression 11/12/2017 Chronic anticoagulation 11/09/2017 Constipation 11/09/2017 Uncontrolled type 2 diabetes mellitus with hyperglycemia, with long-term current use of insulin ([facility]) 11/06/2017 intermediate designer (current) use 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 inhibitors 10/23/2017 Lumbosacral [...] upper- 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 ([facility]HS/HCC) 10/17/2017 Assessment & Plan (08/31/2018 12:24 AM CDT): S/p masectomy. -continue exemestane Acute deep vein thrombosis ( DVT) of proximal vein of right lower extremity ([facility]) 10/17/2017 Dysuria 10/17/2017 Hyperthyroidism 10/17/2017 Cancer of overlapping sites of left female breast ([facility]) 10/13/2017 Syncope 09/29/2017 High blood pressure 08/22/2017 Overview (09/05/2020): Last Assessment & Plan: On lisinopril Last Assessment & Plan: On lisinopril Assessment & Plan (08/30/2018 9:57 PM CDT): Chronic. Controlled. -continue home medications Assessment & Plan (03/18/2018 2:51 AM SEALS ENGRAVER): Chronic, BPs currently 127/78 - To new home meds Morbid obesity with BMI of 50.0-59.9, adult 04/2017 Sepsis ([facility]) 08/22/2017 Type 2 diabetes mellitus ([facility]) 08/22 Overview (09/05/2020): Last Assessment & Plan: Hold janument. Start on SSI and accucheks Assessment & Plan (08/30/2018 10:01 PM CDT): Chronic. Controlled. -continue home insulin regimen of lantus 50 units q am -lispro 20 units with breakfast and lunch. 22 units with dinner. Assessment & Plan (03/18/2018 2:53 AM SEALS ENGRAVER): Chronic, patient reports medical compliance with 50 units of Lantus daily and 15 units of Humalog before meals. No recent HbA1c - Monitor POC glucose -[place] home regimen - Consider sliding scale insulin -Follow-up HbA1c Bronchitis 08/20/2017 LUL (obstructive sleep apnea) 08/01/2017 Assessment & Plan (03/18/2018 2:54 AM SEALS ENGRAVER): Chronic, on CPAP at home - Continue home CPAP History of DVT (deep vein thrombosis) 08/01/2017 Assessment & Plan (03/18/2018 2:54 AM SEALS ENGRAVER): Chronic - Continue home Xarelto Chest pressure 08/01/2017 Diet-controlled diabetes mellitus ([facility]HS/H CC) 08/01/2017 History of pulmonary embolism 08/01/2017 Hyponatremia 08/01/2017 Positive blood culture 08/01/2017 Acute pharyngitis 07/27/2017 Generalized weakness 07/27/2017 Nausea and vomiting 07/26/2017 Overview (09/05/2020): Overview: Overview: Added automatically from request for surgery [id number] Overview: Added automatically from request for surgery [id number] Added automatically from request for surgery [id number] Neuropathy 07/05/2017 History of breast cancer 02/06/2017 Pulmonary embolism ([facility]) 08/09/2016 Overview (09/05/2020): Last Assessment & Plan: [...] syndrome Assessment & Plan (03/18/2018 2:54 AM SEALS ENGRAVER): Chronic -Continue home ropinirole Pain of lower [...] drink = 0.6 oz pur e alcohol) [facility] Utilities Answer Date Recorded In the past 12 months has [employer] gas, oil, or water [employer] threatened to shut off services in your [...] time in the past 12 m [facility], were you homeless or living in a prison (including now)? No 10/13/2023 Comments No Sex and Gender Information Value Date Recorded Sex Assigned at Female 09/06/2020 12:50 AM CDT Legal Sex Female 10:47 AM CDT Gender Identity Female 09/06/2020 12:50 AM CDT Sexual Orientation Straight 03/18/2018 3: 01 AM SEALS ENGRAVER Last Filed Vital Signs Vital Sign Reading [...] 5:58 PM CDT Height 154.9 cm (5' 1) 10/13/2023 5:58 PM CDT Body Mass Index [...] 8.0(H) <5.7 % 10/14/2023 5:50 AM CDT [facility] Comment: ADA GUIDELINES 2010 5.7 TO 6.4% INCREASED RISK OF DIABETES > OR = 6.5% CONSISTENT WITH DIABETES ESTIMATED AVG GLUCOSE 183 mg/dL 10/14/2023 5:[address] [facility] 10/14/2023 3:40 AM CDT us Peggy Bland MD LABORATORY Final Result [facility] [address] [place] [address], * LIPID PANEL (10/14/2023 3:40 AM CDT) CHOLESTEROL 164 <200 MG/DL 10/14/2023 4:[address] [facility] TRIGLYCERIDES 114 <150 MG/DL 10/14/2023 4:[address] [facility] HDL 46 >40.0 MG/DL 10/14/2023 4:[address] [facility] LDL (CALCULATED) 95 <100 MG/DL 10/14/19 4:[address] [facility] NON HDL CHOLESTEROL 118 <130 MG/DL 10/13 4:[address] [facility] CHOL/HDL RATIO 3.6 0.0 - 4.5 10/14/2023 4:[address] [facility] VLDL CALCULATION 23 5 - 55 MG/DL 10/14/2023 4:[address] [facility] LIPID INTERPRETATION 10/14/2023 4:[address] [facility] Comment: NIH CONCENSUS REPORT RECOMMENDATIONS: ADULT CHILD LOW RISK: CHOLESTEROL <200 <170 TRIGLYCERIDE <150 --- HDL >=60 --- LDL <100 <110 BORDERLINE: CHOLESTEROL 200-239 170-199 TRIGLYCERIDE 150-199 --- HDL 40-59 --- LDL 100-159 110-129 HIGH RISK: CHOLESTEROL >=240 >=200 TRIGLYCERIDE >=200 --- HDL <40 --- LDL >=160 >=130 10/14/2023 3:40 AM CDT Peggy Bland MD LABORATORY Final Result [facility] [address] [place] [address], from Last 3 Months or Most Recently Relevant to Health Maintenance Insurance [facility] MEDICAID MEDICAID [facility] Advance Directives * Full Code (Latest [...] 2:42 AM 03/18/2018 4:50 PM Care Teams Drop Hammer Set Up Operator Relationship Specialty Start Date End Date Justen Gale MD [address] [place] [address] PCP - General FAMILY PRACTICE 08/20/17 Meena Bansal MD [address] [place], [place] [address] [place] Armor Reconnaissance Specialist CARDIOVASCULAR DISEASE 04/24/16
--- OUTSIDE RECORDS SUMMARY | 2024-07-21 21:51 | XMS_ITS | Clinical Summary ---
Author Organization [facility] Address [address] [place] [address] Phone Care Team Providers Care Geotechnical Intern Name Role Phone Justen Gale MD Primary Care Provider [phone] David Roberts APRN, HYDROELECTRIC PLANT TECHNICIAN Unavailable [phone] Annel Rod MD Unavailable Allergies Active Allergy [...] Overview: Added automatically from request for surgery [id number] Lymphedema of left upper extremity 08/09/2016 Pulmonary embolism 08/09/2016 Overview (11/09/2017): Last Assessment & Plan: On Rivaroxaban Arthralgia of ankle 01/26/2015 Cellulitis of breast 11/11/2014 Encounters Date Type Department Care Team Description 07/11/2024 Nurse Triage [address] [address] Justen Gale MD Toe Problem 06/14/2024 Nurse Triage [facility] [address] [place] [phone] Justen Gale MD Urinary Incontinence; Urinary Problem 05/28/2024 Nurse Triage [facility] [address] [place] [address] Justen Gale MD Nausea; Fatigue 05/14/2024 Nurse Triage [facility] [address] [place] [address] Justen Gale MD Arm Swelling; Arm Pain 05/13/2024 Results Follow-Up [facility] [address] [place] [phone] Justen Gale MD 04/23/2024 MyChart RX Renewal [facility] [address] [place] [phone] Annel Rod MD Medication Renewal Declined 04/23/2024 MyChart RX Renewal [facility] [address] [place] [phone] Justen Gale MD Medication Renewal Request from Last 3 Months Immunizations Immunization Administration Dates Next Due Covid-19 Vaccine, Vector-nr, Rs-ad26, Pf, 0.5 Ml ([employer]) 06/29/2020 Influenza Vaccine greater than 3 yrs [...] 1:47 PM CDT Height 154.9 cm (5' 1) 01/17/2024 1:47 PM CDT Body Mass Index [...] Priority Date/Time Associated Diagnosis Comments XR - LOWER EXTREMITY 07/10/2024 12:[address] - ABDOMEN/PELVIS 06/21/2024 12:00 AM PRIMARY EDUCATION PROFESSOR XR - LOWER EXTREMITY 06/20/2024 12:00 AM PRIMARY EDUCATION PROFESSOR PAIN CONSULT 05/20/2024 12:00 AM PRIMARY EDUCATION PROFESSOR XR - CHEST 05/15/2024 12:00 AM PRIMARY EDUCATION PROFESSOR URINALYSIS (UA) RANDOM 12:00 AM PRIMARY EDUCATION PROFESSOR XR - CHEST 05/14/2024 12:00 AM PRIMARY EDUCATION PROFESSOR EXTERNAL GASTROENTEROLOGY REFERRAL Less Than 1 week 05/07/2024 12:00 AM PRIMARY EDUCATION PROFESSOR Nausea and vomiting, unspecified vomiting type Pain of upper abdomen CMP (COMPREHENSIVE METABOLIC PANEL) 12/04/2023 12:00 AM CDT HEMOGLOBIN, A1C 10/02/2023 12:00 AM CDT HUMAN PAPILLOMA VIRUS (HPV) Routine 07/05/2022 2:24 PM CDT Encounter for gynecological examination with abnormal finding Encounter for screening for human papillomavirus (HPV) PATHOLOGY CYTOLOGY OPS MANAGER Routine 2:24 PM CDT Encounter for gynecological examination with abnormal finding HM COLONOSCOPY Routine 01/09/2020 AMB REFERRAL TO PODIATRY Routine 08/13/2019 POCT STOOL, OCCULT BLOOD, DIAGNOSTIC Routine 09/07/2018 1:20 PM CDT Generalized abdominal pain from Last 3 Months or Most Recently Relevant to Health Maintenance Results * XR - LOWER EXTREMITY (07/10/2024 12:00 AM CDT) Only the most recent of2 resultswithin the time period is included. 07/10/2024 us Provider Scan IMG DIAGNOSTIC ORDERABLES Final Result Performing Organization Address [facility] de Phone Number SCAN * CT - ABDOMEN/PELVIS (06/21/2024 12:00 AM PRIMARY EDUCATION PROFESSOR) 06/21/2024 us Provider Scan IMG CT ORDERABLES Final Result Performing Organization Address [facility] Co de Phone Number SCAN * PAIN CONSULT (05/20/2024 12:00 AM PRIMARY EDUCATION PROFESSOR) 05/20/2024 us Justen Gale MD GENERIC SCAN ORDERS CONSULT F inal Result Performing Organization Address [facility] Co de Phone Number SCAN * XR - CHEST (05/15/2024 12:00 AM PRIMARY EDUCATION PROFESSOR) Only the most recent of2 resultswithin the time period is included. 05/15/2024 us Provider Scan IMG DIAGNOSTIC ORDERABLES Final Result Performing Organization Address [facility] de Phone Number SCAN * URINALYSIS (UA) RANDOM (05/14/2024 12:00 AM PRIMARY EDUCATION PROFESSOR) 05/14/2024 us Provider Scan URINE ORDERABLES Final Result Performing Organization Address [facility] de Phone Number SCAN * EXTERNAL GASTROENTEROLOGY REFERRAL (05/07/2024 12:00 AM PRIMARY EDUCATION PROFESSOR) 05/07/2024 us Justen Gale MD OUTPT REFERRALS EXT/INT Final Result Performing Organization [facility] de Phone Number SCAN * CMP (COMPREHENSIVE METABOLIC PANEL) (12/04/2023 12:00 AM CDT) 12/04/2023 us Provider Scan CHEMISTRY ORDERABLES Final Resul t Performing Organization Address [facility] de Phone Number SCAN * HEMOGLOBIN, A1C (10/02/2023 12:00 AM CDT) HGB-A1C 7.8 SCAN 10/02/2023 us Provider Scan CHEMISTRY ORDERABLES Final Resul t Performing Organization Address [facility] de Phone Number SCAN * PATHOLOGY CYTOLOGY OPS MANAGER (07/05/2022 2:24 PM CDT) SPECIMEN ADEQUACY A scant cellular component is noted. Scant cellularity is likely due to presence of lubricant. 07/08/2022 8:38 AM CDT [facility] DESCRIPTIVE DIAGNOSIS NEGATIVE FOR INTRAEPITHELIAL LESIONS OR MALIGNANCY. 07/08/2022 8:38 AM CDT [facility] FINDINGS Atrophic hormonal pattern. 07/08/2022 8:38 AM CDT [facility] Automated Examination This sample was not evaluated by the automated imaging and review system (Thinprep Imaging System, [employer], [place], [place] due to technical and / or biologic factor(s). The case was screened, reviewed, and finalized by a service sprinkler helper and / or pathologist. 07/08/2022 8:38 AM CDT [facility] Disclaimer The PAP smear is a [...] recommended every three years for women 21-29, Co-Testing, a PAP test in conjunction with an HPV (Human Papillomavirus) test for women ages 30-65, and no PAP or HPV testing for women under the age of 21 or older than 65 unless clinically indicated. 07/08/2022 8:38 AM CDT [facility] Other CERVIX UTERI STRUCTURE / Unknown Non-Phlebotomy Collection / Unknown 07/05/2022 2:24 PM CDT 07/05/2022 2:24 PM CDT us Pili Elkins APRN, CNP PATHOLOGY/CYTOLOGY O RDERABLES Final Result Performing Organization Address City/State/[facility] Co de Phone Number [facility] [address] [place] [address], * HUMAN PAPILLOMA VIRUS (HPV) (07/05/2022 2:24 PM CDT) HPV OTHER HIGH RISK TYPES, PCR NEGATIVE NEGATIVE 07/06/2022 2:37 PM CDT [facility] Comment: The following Other High Risk [...] 16 NEGATIVE NEGATIVE 07/06/2022 2:37 PM CDT [facility] Comment: A negative high-risk HPV result [...] 18 NEGATIVE NEGATIVE 07/06/2022 2:37 PM CDT [facility] Comment: A negative high-risk HPV result [...] OR DIAGNOSTIC SCREENING 07/06/2022 2:37 PM CDT [facility] Other Non-Phlebotomy Collection / Unknown 07/05/2022 2:24 PM CDT 07/05/2022 2:24 PM CDT Narrative [facility] - 07/06/2022 2:37 PM CDT Performed by Real-Time Polymerase Chain Reaction (PCR) on the Ronnie Vinay 4800. This assay has been validated for use with post-aliquot samples from the [employer] T5000 processor. Pili Elkins APRN, CNP LAB SEND OUTS Deann bowman Result [facility] [address] [place] [address], [facility] [address] [place] [address] * HM COLONOSCOPY (01/09/2020) us Genaro Jensen DO PROCEDURE/MINOR SURGICAL ORDERA BLES Final Result * AMB REFERRAL TO PODIATRY (08/13/2019) Alvarez Mensah MD OUTPATIENT REFERRALS Final Res ult * POCT STOOL, OCCULT BLOOD, DIAGNOSTIC (09/07/2018 1:20 PM CDT) OCCULT BLOOD, STOOL Negative Negative, Other POC HEMOCULT CONTROL Refinery Operator Crude Unit Pass 09/07/2018 1:20 PM CDT Pili Elkins APRN, HYDROELECTRIC PLANT TECHNICIAN POINT OF CARE TESTIN G (MANUAL) Final Result from Last 3 Months or Most Recently Relevant to Health Maintenance Insurance [facility]IC[facility] Care Teams Geotechnical Intern Relationship Specialty Start Date End Date Justen Gale MD [address] [address] PCP - General Family Medicine 10/17/17 David Roberts APRN, HYDROELECTRIC PLANT TECHNICIAN [address] [place] [address] Nurse Practitioner Advanced Practice Nurse 01/31/22 Annel Rod MD [address] [address] Consulting Physician Endocrinology 07/01/22
--- OUTSIDE RECORDS SUMMARY | 2024-07-21 21:51 | XMS_ITS | Clinical Summary ---
Author Organization [facility] Address [address] [place] [address] Care Team Providers Care Metalizing Supervisor Name Role Phone Justen Gale MD Primary Care Provider [phone] Source Comments [facility] Affiliates and Associated Physician Practices is amultiple site organization consisting of ambulatory clinics and hospital sitesin [place], [place], [place] and [place]. This disclosure is being madepursuant to the Care Everywhere program and may not contain all information available regarding this patient. Last updated 18.[facility] [employer] Allergies Active Allergy Reactions Criticality Noted Date [...] Gluc Sensor (FreeStyle Eileen 2 Sensor Systm) [facility] APPLY 1 SENSOR AND WEAR FOR 14 [...] hard 05/16/2023 [facility] [place] of Occupat ional Health - Occupational Stress [...] 5:54 PM CDT Height 154.9 cm (5' 0.98) 07/28/2023 5:54 PM CD T Body Mass [...] this topic Medical Devices Implanted Type Area Comedian Device Identifier Shelf Expiration Date Model / Serial / Lot Lead Nrstm 60cm Penta 3mm Pdl 16 Chnl Implanted:Qt y: 1 on 09/16/2021 by Maxi Gregg MD at Formerly named [facility] Right: Spine Thoracic [employer] [id number] / / Description:JJ Slnt Dura Duraseal Pg Trilysine Amine 5 Implanted:Qt y: 1 on 09/16/2021 by Maxi Gregg MD at Formerly named [facility] Right: Spine Thoracic Inte[employer] David [id number] / / Description:JJ Proclaim Plus 5 Implanted:Qt y: 1 on 02/16/2023 by Maxi Gregg MD at Formerly named [facility] Left: Back Cardenas Spine [id number] 11/07/2024 3670 / [id number] / Explanted Type Area Comedian Device Identifier Shelf Expiration Date Model / Serial / Lot Gntr Nrstm 1.95inx2.19in Proclaim Elt Implanted:Qty: 1 on 09/16/2021 by Maxi Gregg MD at Formerly named [facility] Explanted:Qty: 1 on 10/30/2021 by Maxi Gregg MD at [facility] Right: Spine Thoracic [employer] [...] - 26 mg/dL 07/30/2023 2:31 AM CDT [facility] Creatinine 0.67 0.56 - 0.96 mg/dL 07/30/2023 2:31 AM CDT [facility] Sodium 136 136 - 145 mmol/L 07/30/2023 2:31 AM CDT [facility] Potassium 4.4 3.5 - 4.5 mmol/L 07/30/2023 2:31 AM CDT [facility] Chloride 101 98 - 107 mmol/L 07/30/2023 2:31 AM [facility] CO2 27 22 - 29 mmol/L 07/30/2023 2:31 AM [facility] Glucose 238(H) 70 - 115 mg/dL 07/30/2023 2:31 AM [facility] Albumin 2.9(L) 3.4 - 5.0 g/dL 07/30/2023 2:31 AM [facility] Calcium 9.4 8.4 - 10.2 mg/dL 07/30/2023 2:31 AM [facility] Phosphorus 3.0 2.9 - 5.1 mg/dL 07/30/2023 2:31 AM [facility] Anion Gap 8 6 - 16 07/30/2023 2:31 AM [facility] BUN/Creatinine Ratio 30(H) 7 - 23 07/30/2023 2:31 AM [facility] Osmolality Calculated 292 275 - 295 mOsm/kg 07/30/2023 2:31 AM [facility] eGFR by CKD-EPI >90 >=90 mL/min/1.7 3 m2 07/30/2023 2:31 AM [facility] Blood BLOOD SPECIMEN / Unknown Lab Venipuncture / Unknown 07/30/2023 1:28 AM CDT 07/30/2023 2:04 AM CDT Brian Bravo MD LAB - CHEMISTRY ANGEL SPEARS [facility] Organization Address City/State/ZIP Co de Phone Number [facility] [address] [place] [address], [facility] [phone] * HEPATITIS C AB SCREEN RFLX NAAT QUANT (02/21/2023 6:30 PM CDT) Hepatitis C Antibody Non-react hugh Non-reac tive 02/21/2023 7:32 PM [facility] Comment:Hepatitis C Antibody screen indicates [...] Solitario MD LAB - CHEMISTRY ANGEL SPEARS [facility] [address] [place] [address], [place] [phone] * (ABNORMAL) HEMOGLOBIN A1C (12/25/2022 3:56 AM CDT) Hemoglobin A1c 8.6(H) <=5.6 % 12/25/2022 2:47 PM CDT [facility] Estimated Average Glucose 200 mg/dL 12/25/2022 2:47 PM CDT [facility] Comment: HbA1c Interpretation: Normal : [...] Rodriguez MD LAB - CHEMISTR Y ORDERABLES [facility] [address] [place] [address], [place] [phone] from Last 3 Months or Most Recently [...] 3:37 AM 03/23/2023 7:14 PM Care Teams Metalizing Supervisor Relationship Specialty Start Date End Date Justen Gale MD PCP - General 07/05/21
--- OUTSIDE RECORDS SUMMARY | 2024-07-21 21:51 | XMS_ITS | Encounter Summary ---
Author Organization [facility] Address [address] [place] [address] Phone Care Team Providers Care Educational Technology Specialist Name Role Phone Justen Gale MD Primary Care Provider [phone] David Roberts APRN, COOKY MACHINE OPERATOR Unavailable [phone] Annel Rod MD Unavailable Reason for Visit * Reason Comments Medication Refill Encounter Details Date Type Department Care Team (Late st Contact Info) Description 02/07/2020 Refill [facility] [address] [place] [address] Justen Gale MD [address] [address] Medication Refill Social History Tobacco Use Types [...] documented as of this encounter Care Teams Educational Technology Specialist Relationship Specialty Start Date End Date Justen Gale MD [address]2 [facility] [address] [place] [address] PCP - General Family Medicine 10/17/17 David Roberts APRN, COOKY MACHINE OPERATOR [address] [place] [address] Nurse Practitioner Advanced Practice Nurse 01/31/22 Annel Rod MD [address] [facility] [address] [place] [address] Consulting Physician Endocrinology 07/01/22 documented as of this encounter
--- OUTSIDE RECORDS SUMMARY | 2024-07-21 21:51 | XMS_ITS | Encounter Summary ---
Author Organization [facility] Address [address] [place] [address] Phone Care Team Providers Care Security Systems Specialist Name Role Phone Justen Gale MD Primary Care Provider [phone] David Roberts APRN, P D DRIVER Unavailable [phone] Annel Rod MD Unavailable Reason for Visit * Reason Comments Medication Refill Encounter Details Date Type Department Care Team (Late st Contact Info) Description 02/17/2021 Refill [facility] [address] [place] [phone] Justen Gale MD #[address] [address] Medication Refill Social History Tobacco Use Types [...] 06/05/20 Office Visit Pili Elkins APRN, NETTA [facility] Showing recent visits within past 365 days and meeting all other requirements Future Appointments Date Type Provider Dept 03/02/21 Appointment Vince Hermosillo MD [facility] Showing future appointments within next 90 days and meeting all other requirements documented in this encounter Plan of Treatment Not on file documented as of this encounter Visit Diagnoses Not on filedocumented in this encounter Additional Health Concerns Assessment Noted Time PHQ-9 Depression Total Score: 0 07/21/19 21 3:00 PM CDT documented as of this encounter Care Teams Security Systems Specialist Relationship Specialty Start Date End Date Justen Gale MD [address]2 [facility] [address] [place] [address] PCP - General Family Medicine 10/17/17 David Roberts APRN, NETTA [address] [place] [address] Nurse Practitioner Advanced Practice Nurse 01/31/22 Annel Rod MD [address] [facility] [address] [place] [address] Consulting Physician Endocrinology 07/01/22 documented as of this encounter
--- OUTSIDE RECORDS SUMMARY | 2024-07-21 21:51 | XMS_ITS | Encounter Summary ---
Author Organization [facility] Address [address] [place] [address] Phone Care Team Providers Care Conveyor Tender Concrete Mixing Plant Name Role Phone Justen Gale MD Primary Care Provider [phone] David Roberts APRN, WARP HANGER Unavailable [phone] Annel Rod MD Unavailable Reason for Visit * Reason Onset Date Comments Advice Only 11/21/2023 Encounter Details Date Type Department Care Team (Late st Contact Info) Description 11/21/2023 Telephone [facility] [address] [place] [address] Justen Gale MD #[address] [address] Advice Only Social History Tobacco Use Types [...] 11/21/2023 3:17 PM CDT RFC: Alejandra from [facility] is calling to state that patient [...] documented as of this encounter Care Teams Conveyor Tender Concrete Mixing Plant Relationship Specialty Start Date End Date Justen Gale MD #[address] [address] PCP - General Family Medicine 10/17/17 David Roberts APRN, NETTA [address] [place] [address] Nurse Practitioner Advanced Practice Nurse 01/31/22 Annel Rod MD #[address] [address] Consulting Physician Endocrinology 07/01/22 documented as of this encounter
--- OUTSIDE RECORDS SUMMARY | 2024-07-21 21:51 | XMS_ITS | Encounter Summary ---
Author Organization [facility] Address [address] [place] [address] Phone Care Team Providers Care Hand Brush Filler Name Role Phone Justen Gale MD Primary Care Provider [phone] David Roberts APRN, ALUMINUM FABRICATION SUPERVISOR Unavailable [phone] Annel Rod MD Unavailable Reason for Visit * Reason Comments Medication Refill Encounter Details Date Type Department Care Team (Late st Contact Info) Description 10/24/2022 Refill [facility] [address] [place] [address] Pili Elkins APRN, ALUMINUM FABRICATION SUPERVISOR #[address] [address] Medication Refill Social History Tobacco [...] as of this encounter Care Teams Hand Brush Filler Relationship Specialty Start Date End Date Justen Gale MD #2 [facility] [address] [place] [address] PCP - General Family Medicine 10/17/17 David Roberts APRN, NETTA [address] [place] [address] Nurse Practitioner Advanced Practice Nurse 01/31/22 Annel Rod MD #2 [facility] [address] [place] [address] Consulting Physician Endocrinology 07/01/22 documented as of this encounter
--- OUTSIDE RECORDS SUMMARY | 2024-07-21 21:51 | XMS_ITS | Encounter Summary ---
Author Organization [facility] Address [address] [place] [address] Phone Care Team Providers Care Gravel Machine Operator Name Role Phone Justen Gale MD Primary Care Provider [phone] David Roberts APRN, INDUSTRIAL GAS PRODUCTION OPERATOR Unavailable [phone] Annel Rod MD Unavailable Reason for Visit * Reason Comments Medication Refill Encounter Details Date Type Department Care Team (Late st Contact Info) Description 03/05/2023 Refill [facility] [address] [place] [address] Pili Elkins APRN, INDUSTRIAL GAS PRODUCTION OPERATOR #[address] [address] Medication Refill Social History Tobacco [...] discontinued on 10/19/2022 by Justen Gale MD [employer] documented in this encounter Plan of Treatment Not on file documented as of this encounter Visit Diagnoses Diagnosis Essential hypertension Unspecified essential hypertension documented in this encounter Additional Health Concerns Assessment Noted Time PHQ-9 Depression Total Score: 8 01/18/20 23 2:24 PM CDT documented as of this encounter Care Teams Gravel Machine Operator Relationship Specialty Start Date End Date Justen Gale MD #[address] [address] PCP - General Family Medicine 10/17/17 David Roberts APRN, CNP [address] [place] [address] Nurse Practitioner Advanced Practice Nurse 01/31/22 Annel Rod MD #[address] [address] Consulting Physician Endocrinology 07/01/22 documented as of this encounter
--- NOTE | 2024-07-21 21:54 | ECG_ITS ---
Test Date: 2024-07-21 22:01:05 Measurements Intervals [place] Rate: 86 P: 46 VT: 135 QRS: 19 QRSD: 88 T: 46 QT: 363 QTc: 435 Interpretive Statements SINUS RHYTHM POSSIBLE LEFT ATRIAL ENLARGEMENT [-0.1mV P WAVE IN V1/V2] ABNORMAL ECG Compared to ECG 05/15/2024 00:39:36 No significant changes Electronically Signed On 07-22-2024 06:51:28 CDT by Melvin Barnes M.D.
[2024-07-21 22:19] LABS: Basophils Percent Auto 0.4 % (0.2-1.2); Eosinophils Absolute Auto 0.2 K/mm3 (0-0.3); Eosinophils Percent Auto 2.2 % (0-4.4); Hematocrit 43.5 % (37.0-47.0); Hemoglobin 14.2 g/dL (12.0-15.0); Immature Granulocyte Absolute 0.06 K/mm3 (0.00-0.031); Immature Granulocyte Percent A 0.6 % (0-0.5); Lymphocytes Absolute Auto 2.61 K/mm3 (0.9-3.2); Lymphocytes Percent Auto 24.5 % (18.3-44.2); Mean Corpuscular HGB Conc 32.6 g/dl (32-36); Mean Corpuscular Hemoglobin 29.8 pg (26-34); Mean Corpuscular Volume 91.4 fl (80-100); Mean Platelet Volume 9.6 fl (7.4-10.4); Monocytes Absolute Auto 0.7 K/mm3 (0.1-0.6); Monocytes Percent Auto 6.5 % (2.6-8.5); Neutrophils Percent Auto 65.8 % (45.5-73.1); Platelet Count Result 292 k/mm3 (150-375); Red Blood Count 4.76 M/mm3 (4.2-5.4); Red Cell Distribution Width 13.2 % (11.5-14.5); White Blood Count 10.7 K/mm3 (4.5-10.0)
[2024-07-21 22:28] LABS: Alanine Aminotransferase 27 U/L (6-35); Albumin Level 4.4 g/dL (3.5-5.1); Alkaline Phosphatase 84 U/L (38-126); Anion Gap 8 mmol/L (4-12); Aspartate Amino Transferase 26 U/L (14-36); Bilirubin,Total 0.8 mg/dL (0.2-1.3); Blood Urea Nitrogen 21 mg/dL (7-17); Calcium 10.1 mg/dL (8.4-10.2); Carbon Dioxide 31 mmol/L (22-30); Chloride 99 mmol/L (98-107); Estimated CRCL calculation 76 ml/min; Estimated Glomerular Filt Rate > 60; Glucose 340 mg/dL (65-110); Potassium 4.2 mmol/L (3.4-5.0); Sodium 138 mmol/L (137-145)
[2024-07-21 22:55] LABS: Influenza A QL RT-PCR Negative (Negative); Influenza B QL RT-PCR Negative (Negative); RSV RNA, RT-PCR Negative (Negative); SARS-CoV-2 RNA PCR Negative (Negative)
[2024-07-22 00:13] VITALS: BP 141/70; PULSE 85; RESP 18; O2SAT 100
[2024-07-22 01:36] VITALS: BP 133/64; PULSE 89; RESP 18; O2SAT 98
--- OUTSIDE RECORDS SUMMARY | 2024-07-22 02:24 | XMS_ITS ---
Author Organization [facility] Address [address] [place] [id number] Care Team Providers Care Certified Phlebotomist Name Role Phone Liu Jerez MD Unavailable [phone] Albert Corbin MD Unavailable [phone] Justen Gale MD Primary Care Provider Khris Arthur MD Unavailable [phone] Ko Melendez MD Unavailable John Paul Moyer MD Unavailable Annel Rod MD Unavailable Anali MARSHALL MD, Carlos M. 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 [...] complication, without long-term current use of insulin ([facility]) 10/23/2017 Assessment & Plan [...] 10/13/2017 Assessment & Plan (05/22/2024 12:29 PM OFFICE REP): -Hx stage II, ER positive, HER2 negative [...] 08/01/2017 Assessment & Plan (05/22/2024 12:33 PM OFFICE REP): -Hx LUL -Hospital provided CPAP ordered History of DVT (deep vein thrombosis) 08/01/2017 History of pulmonary embolism 08/01/2017 Generalized weakness 07/27/2017 Dyspnea 07/27/2017 Unintentional weight loss 07/27/2017 Acute cystitis without hematuria 07/27/2017 Nausea and vomiting 07/26/2017 Overview (07/28/2017): Added automatically from request for surgery [id number] Pulmonary embolism 08/09/2016 Assessment & Plan (10/23/2017 2:05 AM CDT): On Rivaroxaban Lymphedema of left upper extremity 08/09/2016 Assessment & Plan (05/25/2024 7:53 AM OFFICE REP): S/p L axillary lymph node dissection 2014, [...] syndrome Assessment & Plan (05/22/2024 11:18 AM OFFICE REP): -continue home Requip 5mg nightly Pain of lower extremity 03/12/2013 Overview (07/29/2016): Leg pain Essential hypertension Assessment & Plan (05/23/2024 10:42 AM OFFICE REP): -Chart history of HTN but not on meds -BP elevated on admission, likely some pain contributing -Monitor closely once pain under adequate control, discussed following up with PCP for this Chronic anticoagulation Restless leg syndrome 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
--- OUTSIDE RECORDS SUMMARY | 2024-07-22 02:24 | XMS_ITS | Encounter Summary ---
Author Organization [facility] Address [address] [place] [address] Phone Care Team Providers Care Machine Operator Name Role Phone Justen Gale MD Primary Care Provider [phone] David Roberts APRN, POST OFFICE CLERK Unavailable [phone] Annel Rod MD Unavailable Reason for Visit * Reason Onset Date Comments Sore Throat 06/29/2020 Encounter Details Date Type Department Care Team (Late st Contact Info) Description 06/29/2020 Telephone [facility] [address] [place] [address] Justen Gale MD [address] [address] Sore Throat Social History Tobacco Use Types [...] COVID-19? No / Unsure 06/29/2020 8:43 AM MATERIAL HANDLER documented as of this encounter Miscellaneous Notes * Telephone Encounter - Gail Lucero RN - 06/29/2020 3:53 PM CST Attempted to call mailbox is full. Pt does not need testing RIAL HANDLER * Telephone Encounter - Vince Hermosillo MD - 06/29/2020 3:13 PM CST No covid testing needed. If the er thought that it was warranted then they would have done this. RIAL HANDLER * Telephone Encounter - Marlys Sorensen RN - 06/29/2020 8:36 AM CST Patient calling. Patient is calling to schedule Hospital/ED/Prompt-Care follow up appointment. Hospital/ED/[facility] Site: [facility] ED Records Requested: Yes Reason for [...] f/up and yearly PAP appointments? Please advise. RIAL HANDLER documented in this encounter Plan of Treatment Not on file documented as of this encounter Visit Diagnoses Not on filedocumented in this encounter Additional Health Concerns Assessment Noted Time PHQ-9 Depression Total Score: 0 09/08/19 19 1:00 PM CDT documented as of this encounter Care Teams Machine Operator Relationship Specialty Start Date End Date Justen Gale MD #[address] [address] PCP - General Family Medicine 10/17/17 David Roberts APRN, POST OFFICE CLERK [address] [place] [address] Nurse Practitioner Advanced Practice Nurse 01/31/22 Annel Rod MD [address] [address] Consulting Physician Endocrinology 07/01/22 documented as of this encounter
--- OUTSIDE RECORDS SUMMARY | 2024-07-22 02:25 | XMS_ITS | Encounter Summary ---
Author Organization [facility] Address [address] [place] [address] Phone Care Team Providers Care Ship'S Master Name Role Phone Justen Gale MD Primary Care Provider [phone] David Roberts APRN, CHICKEN AND FISH BUTCHER Unavailable [phone] Annel Rod MD Unavailable Reason for Visit * Reason Comments Medication Refill Encounter Details Date Type Department Care Team (Late st Contact Info) Description 10/24/2022 Refill [facility] - Family Medicine [facility] [address] [place] [address] Pili Elkins APRN, CHICKEN AND FISH BUTCHER [address] [address] Medication Refill Social History Tobacco [...] documented as of this encounter Care Teams Ship'S Master Relationship Specialty Start Date End Date Justen Gale MD [address]2 [facility] [address] [place] [address] PCP - General Family Medicine 10/17/17 David Roberts APRN, NETTA [address] [place] [address] Nurse Practitioner Advanced Practice Nurse 01/31/22 Annel Rod MD [address] [facility] [address] [place] [address] Consulting Physician Endocrinology 07/01/22 documented as of this encounter
--- OUTSIDE RECORDS SUMMARY | 2024-07-22 02:25 | XMS_ITS | Referral Summary ---
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 Unavailable [phone] Encounters Date Type Department Care Team Description 07/01/2024 8:52 PM CDT - 07/01/2024 10:18 PM CDT Emergency [facility] Emergency Department [address] [place] [address] Myalgia (Primary Dx); Viral syndrome Discharge Disposition: Discharge to home or self care 05/30/2024 Orders Only [facility] [address] [facility] [address] [place] [address] Radha Mcgrath RN Lymphedema of left arm (Primary Dx); Malignant neoplasm of upper-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, unspecified estrogen receptor status (HCC); Malignant neoplasm of overlapping sites of left female breast, unspecified estrogen receptor status (HCC); Malignant neoplasm of female breast, unspecified estrogen receptor status, unspecified laterality, unspecified site of breast (HCC) 05/21/2024 9:12 PM VALET ATTENDANT - 05/26/2024 6:45 PM VALET ATTENDANT Hospital Encounter [address] [address] Jimmie Zavala MD Liss, MD Ra Parnell, MD Sebastian Claros, MD Carlos Left arm pain (Primary Dx); Left leg pain; Shortness of breath; Urinary tract infection without hematuria, site unspecified; Allergy to drug Discharge Disposition: Discharge to home or self care 05/24/2024 Telephone [facility] [address] [place] [address] Radha Warner RN 05/23/2024 8:10 AM VALET ATTENDANT Ancillary Procedure [facility] IP [address] [facility] [address] [place] [address] 05/21/2024 12:58 PM VALET ATTENDANT - 05/21/2024 11:59 PM VALET ATTENDANT Hospital Encounter AMBULANCE BILLING [address] [place] [address] Discharge Disposition: Discharge to home or self care 05/21/2024 11:00 AM VALET ATTENDANT - 05/21/2024 11:59 PM VALET ATTENDANT Hospital Encounter [facility] - Breast Imaging [address] [place] [address] Floor 8 [place] [address] History of breast cancer; Axillary pain, left Discharge Disposition: Discharge to home or self care 05/16/2024 Telephone [facility] [address] [place] [address] 8 [place] [address] Jeanine Ba RMA 05/16/2024 Orders Only [facility] [address] [place] [address] 8 [place] [address] Radha Mcgrath RN History of breast cancer (Primary Dx); Axillary pain, left 05/16/2024 Orders Only [facility] [address] [place] [address] 8 [place] [address] Khris Arthur MD Swelling of left upper extremity (Primary Dx); Swelling of left lower extremity 05/14/2024 4:45 PM VALET ATTENDANT Lab [facility] - Lab Collection [address] [place] [address] 5 [place] [address] Malignant neoplasm of upper-inner quadrant of left breast in female, estrogen receptor positive (HCC) 05/14/2024 4:36 PM VALET ATTENDANT - 05/14/2024 11:59 PM VALET ATTENDANT Hospital Encounter [facility] - Diagnostic Imaging [address] [place] [address] 8 [place] [address] Malignant neoplasm of upper-inner quadrant of left breast in female, estrogen receptor positive (HCC) Discharge Disposition: Discharge to home or self care 05/14/2024 4:00 PM VALET ATTENDANT Lab [facility] [address] [place] [address] 5 [place] [address] Malignant neoplasm of upper-inner quadrant of left breast in female, estrogen receptor positive (HCC) 05/14/2024 3:30 PM VALET ATTENDANT Office Visit [facility] [address] [place] [address] 8 [place] [address] Khris Arthur MD Swelling of right lower extremity (Primary Dx); Malignant neoplasm of upper-inner quadrant of left breast in female, estrogen receptor positive (HCC); Swelling of right upper extremity; Swelling of left upper extremity; Swelling of left lower extremity from Last 3 Months Allergies Active Allergy [...] Taken at 2100 Active blood glucose diagnostic (BioSur[employer]uch Ultra Test) strip 4 (four) times a [...] 05/22/2024 Assessment & Plan (05/26/2024 10:08 AM VALET ATTENDANT): Presenting with urinary symptoms of right [...] 3 doses q48 hours -Previously followed with [facility] U[facility], but lost to follow up when her Urologist left the practice, outpatient urology follow up placed - good pain control w/Dilaudid, continue prn Venous thromboembolism (VTE) 05/22/2024 Assessment & Plan (05/25/2024 7:52 AM VALET ATTENDANT): Hx of breast cancer c/b DVT/bilateral [...] 05/22/2024 Assessment & Plan (05/22/2024 1:14 PM VALET ATTENDANT): -long-standing chronic back pain -CT L [...] 09/12/2021 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) 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) use 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 inhibitors 10/17/2019 Thyroid [...] complication, without long-term current use of insulin ([facility] 10/23/2017 [...] 10/13/2017 Assessment & Plan (05/22/2024 12:29 PM VALET ATTENDANT): -Hx stage II, ER positive, HER2 [...] 08/01/2017 Assessment & Plan (05/22/2024 12:33 PM VALET ATTENDANT): -Hx LUL -Hospital provided CPAP ordered History of DVT (deep vein thrombosis) 08/01/2017 History of pulmonary embolism 08/01/2017 Generalized weakness 07/27/2017 Dyspnea 07/27/2017 Unintentional weight loss 07/27/2017 Acute cystitis without hematuria 07/27/2017 Nausea and vomiting 07/26/2017 Overview (07/28/2017): Added automatically from request for surgery [id number] Pulmonary embolism 08/09/2016 Assessment & Plan (10/23/2017 2:05 AM CDT): On Rivaroxaban Lymphedema of left upper extremity 08/09/2016 Assessment & Plan (05/25/2024 7:53 AM VALET ATTENDANT): S/p L axillary lymph node dissection [...] syndrome Assessment & Plan (05/22/2024 11:18 AM VALET ATTENDANT): -continue home Requip 5mg nightly Pain of lower extremity 03/12/2013 Overview (07/29/2016): Leg pain Essential hypertension Assessment & Plan (05/23/2024 10:42 AM VALET ATTENDANT): -Chart history of HTN but not on meds -BP elevated on admission, likely some pain contributing -Monitor closely once pain under adequate control, discussed following up with PCP for this Chronic anticoagulation Restless leg syndrome 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 Type 2 diabetes mellitus without complication Assessment & Plan (05/24/2024 1:39 PM VALET ATTENDANT): -Last Ha1c 8.4 in 2023, repeat [...] (MDV) ,01/23/2016,03/07/2014,05/07 Influenza, Unspecified 01/23/2016,03/07/2014, Tdap 02/23/2016 Social History Tobacco Use Types Packs/Day Years Used Date Smoking Tobacco: Former Smokeless Tobacco: Never Tobacco Cessation:Counseling Given: Not Answered Comments:remote tobacco use Alcohol Use Standard Drinks/Week Comments No 0 (1 standard drink = 0.6 oz pur e alcohol) [facility] Utilities Answer Date Recorded In the past 12 months has [employer], gas, oil, or water [employer] threatened to shut off services in your [...] often do you attend chur ch or mandaeism services? More than 4 times per year [...] a senior care (including now)? No 08/15/2023 Housing Stability Vital Sign Answer [place] e Recorded In the last 12 months, was t here a time when you were not able to pay the mortgage or rent on time? No 05/24/2024 In the past 12 months, how m any times have you moved where you were living? 0 05/24/2024 At any time in the past 12 m [facility], were you homeless or living in a senior care (including now)? No 05/24/2024 Personal Safety Answer Date Recorded Have you ever been in or are you currently in a harmful physical or emotional relationship or is someone making you feel afraid or unsafe? Denies 07/01/2024 Comments No Sex and Gender Information Value Date Recorded Sex Assigned at Not on file Legal Sex Female 12:24 AM VALET ATTENDANT Gender Identity Not on file Sexual [...] GLUCOSE DEVICE Routine 05/26/2024 4 :27 PM VALET ATTENDANT POCT GLUCOSE DEVICE Routine 05/26/2024 1 1:38 AM VALET ATTENDANT POCT GLUCOSE DEVICE Routine 05/26/2024 8 :12 AM VALET ATTENDANT EGFR Routine 05/26/2024 12:05 AM VALET ATTENDANT DIFFERENTIAL AUTO Routine 05/26/2024 12: 05 AM VALET ATTENDANT PHOSPHORUS Routine 05/26/2024 12:05 AM VALET ATTENDANT COMPREHENSIVE METABOLIC PANEL Routine 05/26/2024 12:05 AM VALET ATTENDANT MAGNESIUM Routine 05/26/2024 12:05 AM VALET ATTENDANT CBC WITH AUTO DIFFERENTIAL Routine 05/26/2024 12:05 AM VALET ATTENDANT POCT GLUCOSE DEVICE Routine 05/25/2024 7 :44 PM VALET ATTENDANT POCT GLUCOSE DEVICE Routine 05/25/2024 5 :24 PM VALET ATTENDANT POCT GLUCOSE DEVICE Routine 05/25/2024 1 1:37 AM VALET ATTENDANT POCT GLUCOSE DEVICE Routine 05/25/2024 7 :27 AM VALET ATTENDANT EGFR Routine 05/25/2024 12:20 AM VALET ATTENDANT DIFFERENTIAL AUTO Routine 05/25/2024 12: 20 AM VALET ATTENDANT PHOSPHORUS Routine 05/25/2024 12:20 AM VALET ATTENDANT COMPREHENSIVE METABOLIC PANEL Routine 05/25/2024 12:20 AM VALET ATTENDANT MAGNESIUM Routine 05/25/2024 12:20 AM VALET ATTENDANT CBC WITH AUTO DIFFERENTIAL Routine 05/25/2024 12:20 AM VALET ATTENDANT POCT GLUCOSE DEVICE Routine 05/24/2024 8 :13 PM VALET ATTENDANT POCT GLUCOSE DEVICE Routine 05/24/2024 5 :17 PM VALET ATTENDANT POCT GLUCOSE DEVICE Routine 05/24/2024 1 2:49 PM VALET ATTENDANT POCT GLUCOSE DEVICE Routine 05/24/2024 9 :22 AM VALET ATTENDANT HERPES SIMPLEX VIRUS (HSV) PCR Routine 05/24/2024 8:47 AM VALET ATTENDANT POCT GLUCOSE DEVICE Routine 05/24/2024 8 :22 AM VALET ATTENDANT EGFR Routine 05/24/2024 12:29 AM VALET ATTENDANT DIFFERENTIAL AUTO Routine 05/24/2024 12: 29 AM VALET ATTENDANT PHOSPHORUS Routine 05/24/2024 12:29 AM VALET ATTENDANT COMPREHENSIVE METABOLIC PANEL Routine 05/24/2024 12:29 AM VALET ATTENDANT MAGNESIUM Routine 05/24/2024 12:29 AM VALET ATTENDANT CBC WITH AUTO DIFFERENTIAL Routine 05/24/2024 12:29 AM VALET ATTENDANT POCT GLUCOSE DEVICE Routine 05/23/2024 8 :16 PM VALET ATTENDANT POCT GLUCOSE DEVICE Routine 05/23/2024 6 :14 PM VALET ATTENDANT POCT GLUCOSE DEVICE Routine 05/23/2024 1 2:17 PM VALET ATTENDANT US VEIN DUPLEX LOWER EXTREMITY BILATERAL COMPLETE IP Routine 05/23/2024 11:45 AM VALET ATTENDANT POCT GLUCOSE DEVICE Routine 05/23/2024 8 :16 AM VALET ATTENDANT DIFFERENTIAL AUTO Routine 05/23/2024 2:3 0 AM VALET ATTENDANT CBC WITH AUTO DIFFERENTIAL Routine 05/23/2024 2:30 AM VALET ATTENDANT EGFR Routine 05/23/2024 12:42 AM VALET ATTENDANT LACTATE DEHYDROGENASE Routine 05/23/2024 12:42 AM VALET ATTENDANT URIC ACID Routine 05/23/2024 12:42 AM VALET ATTENDANT TYPE AND SCREEN Timed 05/23/2024 12:42 AM VALET ATTENDANT PHOSPHORUS Routine 05/23/2024 12:42 AM VALET ATTENDANT COMPREHENSIVE METABOLIC PANEL Routine 05/23/2024 12:42 AM VALET ATTENDANT MAGNESIUM Routine 05/23/2024 12:42 AM VALET ATTENDANT POCT GLUCOSE DEVICE Routine 05/22/2024 8 :56 PM VALET ATTENDANT POCT GLUCOSE DEVICE Routine 05/22/2024 6 :09 PM VALET ATTENDANT POCT GLUCOSE DEVICE Routine 05/22/2024 4 :[address] ABDOMEN PELVIS W CONTRAST ED 05/22/2024 2:32 PM VALET ATTENDANT POCT GLUCOSE DEVICE Routine 05/22/2024 1 2:58 PM VALET ATTENDANT POCT GLUCOSE DEVICE Routine 05/22/2024 9 :29 AM VALET ATTENDANT POCT GLUCOSE DEVICE Routine 05/22/2024 6 :[address] CHEST PE W CONTRAST ED 05/22/2024 1:31 AM VALET ATTENDANT D-DIMER, QUANTITATIVE Routine 05/22/2024 12:24 AM VALET ATTENDANT URINALYSIS, MICROSCOPIC ONLY Routine 05/21/2024 11:09 PM VALET ATTENDANT TROPONIN I HIGH-SENSITIVITY 2-HOUR Timed 05/21/2024 11:09 PM VALET ATTENDANT URINE CULTURE Routine 05/21/2024 11:09 PM VALET ATTENDANT RESPIRATORY PATHOGEN PANEL Routine 05/21/2024 11:09 PM VALET ATTENDANT URINALYSIS AND REFLEX TO MICROSCOPIC AND CULTURE Routine 05/21/2024 11:09 PM VALET ATTENDANT POCT GLUCOSE DEVICE Routine 05/21/2024 8 :55 PM VALET ATTENDANT TROPONIN I HIGH-SENSITIVITY 4-HOUR Timed 05/21/2024 7:26 PM VALET ATTENDANT LIPID PANEL STAT 05/21/2024 4:20 PM VALET ATTENDANT HEMOGLOBIN A1C STAT 05/21/2024 4:20 PM VALET ATTENDANT EGFR STAT 05/21/2024 4:20 PM VALET ATTENDANT DIFFERENTIAL AUTO STAT 05/21/2024 4:2 0 PM VALET ATTENDANT TROPONIN I HIGH-SENSITIVITY SERIES (BASELINE, 2HR, 4HR, 6HR) STAT 05/21/2024 4:20 PM VALET ATTENDANT COMPREHENSIVE METABOLIC PANEL STAT 05/21/2024 4:20 PM VALET ATTENDANT CBC WITH AUTO DIFFERENTIAL STAT 05/21/2024 4:20 PM VALET ATTENDANT XR CHEST PA LATERAL 2 VIEWS ED 05/21/2024 2:23 PM VALET ATTENDANT POCT GLUCOSE DEVICE Routine 05/21/2024 1 :39 PM VALET ATTENDANT ECG 12-LEAD STAT 05/21/2024 1:36 PM VALET ATTENDANT US AXILLARY LEFT Schedule Routine, Read Routine (OP Routine) 05/21/2024 12:13 PM VALET ATTENDANT History of breast cancer Axillary pain, left URINALYSIS, MICROSCOPIC ONLY Routine 05/14/2024 4:50 PM VALET ATTENDANT Malignant neoplasm of upper-inner quadrant of left breast in female, estrogen receptor positive (HCC) URINALYSIS AND REFLEX TO MICROSCOPIC AND CULTURE Routine 05/14/2024 4:50 PM VALET ATTENDANT Malignant neoplasm of upper-inner quadrant of left breast in female, estrogen receptor positive (HCC) XR RIBS LEFT 2 VIEWS Schedule Routine, Read Routine (OP Routine) 05/14/2024 4:44 PM VALET ATTENDANT Malignant neoplasm of upper-inner quadrant of [...] since last night. Took tylenol just [employer] [facility] [facility]. 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 AR: VALERY Report ID: [id number] Reading Location: [id number] Procedure Note Juve Gallegos MD - 07/01/2024 [...] Juve Gallegos M.D. AR: VALERY Report ID: [id number] Reading Location: [place] [address] PROCEDURES Final Resu lt * (ABNORMAL) Troponin T high-sensitivity 2-hour (07/01/2024 3:43 PM CDT) Trop T hs 27(H) <=14 ng/L Comment: Interpretive Data For further hscTnT resources including the diagnostic algorithm and an aid in interpretation, copy and paste this link: https://nrl.testcatalog.org/show/hsTrop Current Interpretive Data last revised 2020. Testing performed by: [address] [address] Trop T hs delta 0 ng/L MARY JANE PHAM Comment:Testing performed by : [address] [address] Trop T hs interp Insignificant MARY JANE PHAM Comment:Testing performed by : [address] [address] Blood 07/01/2024 3:43 PM CDT 07/01/2024 3:52 PM CDT us Ilana Stevens MD LAB BLOOD ORDERABLES F inal Result MARY JANE [address] [facility] Department [place] [address] * (ABNORMAL) Urinalysis reflex to microscopic and culture Urine (07/01/2024 3:43 PM CDT) Color, ur Yellow Yellow Comment:Testing performed by : [address] [address] Clarity, ur Clear Clear MARY JANE Comment:Testing performed by : [address] [address] Specific gravity, ur 1.020 1.003 - 1.030 MARY JANE Comment:Testing performed by : [address] [address] pH, urine 6.0 MARY JANE Comment: Interpretive Data U rine pH is affected by diet, medications, systemic acid-base disturbances, and renal tubular function. pH may affect urinary stone formation. For example, urine pH below 6.0 may help reduce the tendency for calcium phosphate stones and pH greater than 6.0 may reduce the tendency for uric acid stone formation. Source: [facility] [employer] Current Interpretive Data was last revised on 2017 Testing performed by: [address] [address] Protein, ur ql Negative Negative MARY JANE Comment:Testing performed by : [address] [address] Glucose, ur ql 2+(A) Negative MARY JANE Comment:Testing performed by : [address] [address] Ketones, ur Negative Negative MARY JANE Comment:Testing performed by : [address] [address] Bilirubin, ur Negative Negative MARY JANE Comment:Testing performed by : [address] [address] Blood, ur Trace(A) Negative MARY JANE Comment:Testing performed by : [place] [address], [place]., [address] Urobilinogen, ur <2.0 <2.0 mg/dL MARY JANE PHAM Comment:Testing performed by : [address], [place]., [address] Nitrite, ur Negative Negative MARY JANE PHAM Comment:Testing performed by : [address], [place]., [address] Leukocyte esterase, ur Negative Negative MARY JANE PHAM Comment:Testing performed by : [facility] [address] [place] [address], [place]., [address] UA reflex comment Reflex to microscopic UA will be performed. MARY JANE PHAM Comment:Testing performed by : [address], [place]., [address] Urine 07/01/2024 3:43 PM CDT 07/01/2024 3:52 PM CDT Ilana Stevens MD LAB MICROBIOLOGY - GEN ERAL ORDERABLES Final Result MARY JANE PHAM [address] [facility] Department [place] [address] * (ABNORMAL) Urinalysis, microscopic only (07/01/2024 3:43 PM CDT) WBC, ur 0-5 0 - 5 /HPF Comment:Testing performed by : [facility] [address] [place] [address]., [address] RBC, ur 3-5(A) 0 - 2 /HPF MARY JANE PHAM Comment:Testing performed by : [facility] [address] [place] [address], [place]., [address] Epithelial cells, squamous, ur 1-5 0 - 5 /HPF MARY JANE PHAM Comment:Testing performed by : [address], [place]., [address] Mucous, ur Present(A) MARY JANE PHAM Comment:Testing performed by : [address], [place]., [address] Culture Reflex Comment Reflex conditions for urine culture (WBC >10) not met. MARY JANE PHAM Comment:Testing performed by : [facility] [address] [place]., [address] Urine 07/01/2024 3:43 PM CDT 07/01/2024 3:52 PM CDT us Ilana Stevens MD LAB URINE ORDERABLES F inal Result MARY JANE [address] [facility] Department [place] [address] * XR Chest 1 Vw Portable (if [...] Romelia Bowen D.O. PS: PS Report ID: [id number] Reading Location: [id number] Procedure Note Romelia Bowen, DO - 07/01/2024 [...] Romelia Bowen D.O. PS: PS Report ID: [id number] Reading Location: [place] [address] us Ilana Stevens MD IMG XR PROCEDURES Deann l Result * ECG 12 lead (07/01/2024 2:05 PM CDT) Ventricular Rate EKG/Min 76 BPM [facility] Atrial Rate 76 BPM [facility] FL-Interval (MSEC) 130 ms [facility] QRS-Interval (MSEC) 86 ms [facility] QT-Interval (MSEC) 386 ms [facility] QTc 434 ms [facility] P [place] 26 degrees [facility] R [place] 22 degrees [facility] T [place] 46 degrees [facility] Diagnosis Normal sinus rhythm Normal ECG When compared with ECG of 28-DEC-2023 12:49, No significant change was found Confirmed by DUTCH BURGOS M.D. ([id number]) on 07/01/2024 10:10:22 PM [facility] 07/01/2024 2:05 PM CDT 07/01/2024 10:10 PM CDT us Ilana Stevens MD ECG ORDERABLES Final Result [facility] * (ABNORMAL) Troponin T high-sensitivity series (baseline, 2hr, 4hr, 6hr) (07/01/2024 2:02 PM CDT) Trop T hs 27(H) <=14 ng/L Comment: Interpretive Data For further hscTnT resources including the diagnostic algorithm and an aid in interpretation, copy and paste this link: https://nrl.testcatalog.org/show/hsTrop Current Interpretive Data last revised 2020. Testing performed by: [address] [address] Blood 07/01/2024 2:02 PM CDT 07/01/2024 2:12 PM CDT us Ilana Stevens MD LAB BLOOD ORDERABLES F inal Result [facility] [address] [facility] Department [place] [address] * Influenza A/B, RSV, and COVID-19 PCR Nasopharyngeal (07/01/2024 2:02 PM CDT) COVID-19 RNA Negative Negative Comment:Testing performed by : [address] [address] Influenza A RNA Negative Negative [facility] Comment:Testing performed by : [address] [address] Influenza B RNA Negative Negative [facility] Comment:Testing performed by : [address] [address] RSV RNA Negative Negative [facility] Comment: Interpretive data: Testing performed by [facility]. This test is performed using the [employer] Xpert Xpress CoV-2/Flu/RSV plus assay. This is a multiplex, real-time reverse transcriptase PCR assay intended for the qualitative detection of nucleic acid from SARS-CoV-2, influenza A, influenza B, and respiratory syncytial virus. This assay has been cleared by the [place] Food and Drug administration. The performance characteristics have been verified by the [facility]. Results must be considered in the clinical context, and a negative result does not rule out infection. Interpretive Data last revised 2023 Testing performed by: [address] [address] Nasopharyngeal 07/01/2024 2: 02 PM CDT 07/01/2024 2:12 PM CDT Narrative MARY JANE - 07/01/2024 2:52 PM CDT Is the Patient experiencing symptoms consistent with COVID?->Yes Ilana Stevens MD LAB MICROBIOLOGY - GEN ERAL ORDERABLES Final Result MARY JANE [facility] [place] [address] * eGFR (07/01/2024 2:02 PM CDT) eGFR [...] 2021. Testing performed by: [facility], [address] [place] [address]., [address] Blood 07/01/2024 2:02 PM CDT 07/01/2024 2:12 PM CDT Ilana Stevens MD LAB BLOOD ORDERABLES F inal Result MARY JANE [address] [facility] [place] [address] * Differential, auto (07/01/2024 2:02 PM CDT) [facility] Neutrophil abs 5.3 1.5 - 6.5 K/cumm Comment:Testing performed by : [address] [address] Imm gran abs 0.0 0.0 - 0.1 K/cumm [facility] Comment:Testing performed by : [address] [address] Lymphocyte abs 2.6 0.8 - 3.3 K/cumm [facility] Comment:Testing performed by : [address] [address] Monocyte abs 0.8 0.2 - 0.8 K/cumm [facility] Comment:Testing performed by : [address] [address] Eosinophil abs 0.2 0.0 - 0.5 K/cumm [facility] Comment:Testing performed by : [address] [address] Basophil abs 0.0 0.0 - 0.1 K/cumm [facility] Comment:Testing performed by : [address] [address] Neutrophil pct 59.1 % [facility] Comment: Interpretive Data Percent cell count reference ranges are not reported, since discordance with absolute values may lead to misinterpretation of CBC data. Current Interpretive Data was last revised on 2017. Testing performed by: [address] [address] Imm gran pct 0.2 % [facility] Comment: Interpretive Data Percent cell count reference ranges are not reported, since discordance with absolute values may lead to misinterpretation of CBC data. Current Interpretive Data was last revised on 2017. Testing performed by: [address] [address] Lymphocyte pct 29.0 % [facility] Comment: Interpretive Data Percent cell count reference ranges are not reported, since discordance with absolute values may lead to misinterpretation of CBC data. Current Interpretive Data was last revised on 2017. Testing performed by: [address] [address] Monocyte pct 9.3 % [facility] Comment: Interpretive Data Percent cell count reference ranges are not reported, since discordance with absolute values may lead to misinterpretation of CBC data. Current Interpretive Data was last revised on 2017. Testing performed by: [address] [address] Eosinophil pct 2.2 % [facility] Comment: Interpretive Data Percent cell count reference ranges are not reported, since discordance with absolute values may lead to misinterpretation of CBC data. Current Interpretive Data was last revised on 2017. Testing performed by: [address] [address] Basophil pct 0.2 % [facility] Comment: Interpretive Data Percent cell count reference ranges are not reported, since discordance with absolute values may lead to misinterpretation of CBC data. Current Interpretive Data was last revised on 2017. Testing performed by: [address] [address] Blood 07/01/2024 2:02 PM CDT 07/01/2024 2:12 PM CDT us Ilana Stevens MD LAB BLOOD ORDERABLES F inal Result MARY JANE [address] [facility] Department [place] [address] * Pro B-type natriuretic peptide (07/01/2024 2:02 [...] Last Revised Date: 2017. Testing performed by: [address] [address] Blood 07/01/2024 2:02 PM CDT 07/01/2024 2:12 PM CDT us Ilana Stevens MD LAB BLOOD ORDERABLES F inal Result [facility] [address] [facility] Department [place] [address] * (ABNORMAL) CBC with auto differential (07/01/2024 2:02 PM CDT) [facility] WBC 9.0 3.8 - 9.9 K/cumm Comment:Testing performed by : [address] [address] Hgb 13.2 11.9 - 15.5 g/dL MARY JANE PHAM Comment:Testing performed by : [address] [address] Hct 41.1 35.6 - 45.5 % MARY JANE PHAM Comment:Testing performed by : [address] [address] Plt 277 150 - 400 K/cumm MARY JANE PHAM Comment:Testing performed by : [address] [address] MPV 9.5 9.1 - 12.3 fL MARY JANE PHAM Comment:Testing performed by : [address] [address] RBC 4.53 3.90 - 5.20 M/cumm MARY JANE PHAM Comment:Testing performed by : [address] [address] MCV 90.7 81.3 - 96.4 fL MARY JANE Comment:Testing performed by : [address] [address] MCH 29.1 27.1 - 33.3 pg MARY JANE Comment:Testing performed by : [address], [address] MCHC 32.1(L) 32.3 - 35.7 g/dL MARY JANE Comment:Testing performed by : [address], [address] RDW CV 13.2 11.1 - 14.9 % MARY JANE Comment:Testing performed by : [address] [address] RDW SD 44.2 35.7 - 48.1 fL MARY JANE Comment:Testing performed by : [address] [address] NRBC abs 0.00 0.00 - 0.01 K/cumm MARY JANE Comment:Testing performed by : [address], [address] Blood 07/01/2024 2:02 PM CDT 07/01/2024 2:12 PM CDT us Ilana Stevens MD LAB BLOOD ORDERABLES F inal Result [facility] [address] [facility] Department [place] [address] * Comprehensive metabolic panel (07/01/2024 2:02 PM CDT) [facility] Sodium 137 135 - 145 mmol/L Comment:Testing performed by : [address] [address] Potassium, pl 4.2 3.3 - 4.9 mmol/L [facility] Comment:Testing performed by : [address], [place]., [address] Chloride 101 97 - 110 mmol/L [facility] Comment:Testing performed by : [address], [place]., [address] CO2 27 22 - 32 mmol/L MARY JANE Comment:Testing performed by : [address], [place]., [address] Anion gap 9 2 - 15 mmol/L [facility] Comment:Testing performed by : [address], [place]., [address] BUN 15 6 - 25 mg/dL [facility] Comment:Testing performed by : [address], [place]., [address] Creatinine 0.60 0.60 - 1.10 mg/dL [facility] Comment:Testing performed by : [address] [address] Glucose 166 70 - 199 mg/dL [facility] Comment: Interpretive Data Fasting glucose >/= [...] was last revised 2022. Testing performed by: [address] [address] Calcium 9.8 8.5 - 10.3 mg/dL [facility] Comment:Testing performed by : [address] [address] Bilirubin, total 0.5 0.1 - 1.2 mg/dL [facility] Comment:Testing performed by : [address] [address] Protein, pl 8.0 6.5 - 8.5 g/dL MARY JANE Comment:Testing performed by : [address] [address] Albumin 3.8 3.5 - 5.0 g/dL MARY JANE Comment:Testing performed by : [address] [address] Alk phos 72 40 - 130 Units/L MARY JANE Comment:Testing performed by : [address] [address] ALT 19 7 - 45 Units/L MARY JANE Comment:Testing performed by : [address] [address] AST 23 10 - 45 Units/L MARY JANE Comment:Testing performed by : [address] [address] Blood 07/01/2024 2:02 PM CDT 07/01/2024 2:12 PM CDT Ilana Stevens MD LAB BLOOD ORDERABLES F inal Result MARY JANE [address] [facility] Department [place] [address] * POCT glucose (05/26/2024 4:27 PM VALET ATTENDANT) Glucose, POC 137 70 - 199 mg/dL Blood 05/26/2024 4:27 PM VALET ATTENDANT 05/26/2024 4:27 PM VALET ATTENDANT us Carlos Real MD LAB POCT ORDERABLES - DEVICE Fin al Result [facility] Department [place] [address] * POCT glucose (05/26/2024 11:38 AM VALET ATTENDANT) Glucose, POC 146 70 - 199 mg/dL Blood 05/26/2024 11:3 8 AM VALET ATTENDANT 05/26/2024 11:38 AM VALET ATTENDANT Carlos Real MD LAB POCT ORDERABLES - DEVICE Fin al Result [facility] [place] [address] * POCT glucose (05/26/2024 8:12 AM VALET ATTENDANT) Glucose, POC 134 70 - 199 mg/dL Blood 05/26/2024 8:12 AM VALET ATTENDANT 05/26/2024 8:12 AM VALET ATTENDANT Carlos Real MD LAB POCT ORDERABLES - DEVICE Fin al Result Performing Organization Address [facility] de Phone Number MARY JANE [facility] [place] [address] * eGFR (05/26/2024 12:05 AM VALET ATTENDANT) eGFR >90 >=60 mL/min/1. 73 m2 [...] reviewed 2021. Blood 05/26/2024 12:0 5 AM VALET ATTENDANT 05/26/2024 12:23 AM VALET ATTENDANT Carlos Real MD LAB BLOOD ORDERABLES Final Resul t MARY JANE [facility] Department [place] [address] * (ABNORMAL) Differential, auto (05/26/2024 12:05 AM VALET ATTENDANT) Neutrophil abs 6.4 1.5 - 6.5 K/cumm Imm gran abs 0.0 0.0 - 0.1 K/cumm [facility] Lymphocyte abs 2.9 0.8 - 3.3 K/cumm [facility] Monocyte abs 0.9(H) 0.2 - 0.8 K/cumm [facility] Eosinophil abs 0.3 0.0 - 0.5 K/cumm [facility] Basophil abs 0.0 0.0 - 0.1 K/cumm [facility] Neutrophil pct 60.4 % [facility] Comment: Interpretive Data Percent cell count reference ranges are not reported, since discordance with absolute values may lead to misinterpretation of CBC data. Current Interpretive Data was last revised on 2017. Imm gran pct 0.4 % [facility] Comment: Interpretive Data Percent cell count reference ranges are not reported, since discordance with absolute values may lead to misinterpretation of CBC data. Current Interpretive Data was last revised on 2017. Lymphocyte pct 27.5 % [facility] Comment: Interpretive Data Percent cell count reference ranges are not reported, since discordance with absolute values may lead to misinterpretation of CBC data. Current Interpretive Data was last revised on 2017. Monocyte pct 8.2 % [facility] Comment: Interpretive Data Percent cell count reference ranges are not reported, since discordance with absolute values may lead to misinterpretation of CBC data. Current Interpretive Data was last revised on 2017. Eosinophil pct 3.1 % [facility] Comment: Interpretive Data Percent cell count reference ranges are not reported, since discordance with absolute values may lead to misinterpretation of CBC data. Current Interpretive Data was last revised on 2017. Basophil pct 0.4 % [facility] Comment: Interpretive Data Percent cell count reference ranges are not reported, since discordance with absolute values may lead to misinterpretation of CBC data. Current Interpretive Data was last revised on 2017. Blood 05/26/2024 12:0 5 AM VALET ATTENDANT 05/26/2024 12:07 AM VALET ATTENDANT Carlos Real MD LAB BLOOD ORDERABLES Final Resul t Performing Organization Address [facility] de Phone Number [facility] [place] [address] * (ABNORMAL) CBC with auto differential (05/26/2024 12:05 AM VALET ATTENDANT) WBC 10.6(H) 3.8 - 9.9 K/cumm Hgb 12.5 11.9 - 15.5 g/dL [facility] Hct 39.2 35.6 - 45.5 % [facility] Plt 248 150 - 400 K/cumm [facility] MPV 9.7 9.1 - 12.3 fL [facility] RBC 4.32 3.90 - 5.20 M/cumm [facility] MCV 90.7 81.3 - 96.4 fL [facility] MCH 28.9 27.1 - 33.3 pg [facility] MCHC 31.9(L) 32.3 - 35.7 g/dL [facility] RDW CV 13.5 11.1 - 14.9 % [facility] RDW SD 45.1 35.7 - 48.1 fL [facility] NRBC abs 0.00 0.00 - 0.01 K/cumm [facility] Blood 05/26/2024 12:0 5 AM VALET ATTENDANT 05/26/2024 12:07 AM VALET ATTENDANT Carlos Real MD LAB BLOOD ORDERABLES Final Resul t Performing Organization Address [facility] Co de Phone Number [facility] [place] [address] * Phosphorus (05/26/2024 12:05 AM VALET ATTENDANT) Pathologist [facility] Phosphorus, pl 3.2 2.3 - 4.5 mg/dL Blood 05/26/2024 12:0 5 AM VALET ATTENDANT 05/26/2024 12:08 AM VALET ATTENDANT Carlos Real MD LAB BLOOD ORDERABLES Final Resul t Performing Organization Address City/[facility] de Phone Number [facility] [place] [address] * Magnesium (05/26/2024 12:05 AM VALET ATTENDANT) Pathologist [facility] Magnesium 1.8 1.4 - 2.5 mg/dL Blood 05/26/2024 12:0 5 AM VALET ATTENDANT 05/26/2024 12:08 AM VALET ATTENDANT Carlos Real MD LAB BLOOD ORDERABLES Final Resul t Performing Organization Address [facility] de Phone Number [facility] [place] [address] * (ABNORMAL) Comprehensive metabolic panel (05/26/2024 12:05 AM VALET ATTENDANT) Pathologist [facility] Sodium 136 135 - 145 mmol/L Potassium, pl 4.2 3.3 - 4.9 mmol/L [facility] Chloride 101 97 - 110 mmol/L [facility] CO2 29 22 - 32 mmol/L [facility] Anion gap 6 2 - 15 mmol/L [facility] BUN 19 6 - 25 mg/dL [facility] Creatinine 0.67 0.60 - 1.10 mg/dL [facility] Glucose 164 70 - 199 mg/dL [facility] Calcium 9.4 8.5 - 10.3 mg/dL [facility] Bilirubin, total 0.4 0.1 - 1.2 mg/dL [facility] Protein, pl 7.1 6.5 - 8.5 g/dL [facility] Albumin 3.3(L) 3.5 - 5.0 g/dL [facility] Alk phos 65 40 - 130 Units/L [facility] ALT 17 7 - 45 Units/L [facility] AST 19 10 - 45 Units/L [facility] Blood 05/26/2024 12:0 5 AM VALET ATTENDANT 05/26/2024 12:08 AM VALET ATTENDANT Carlos Real MD LAB BLOOD ORDERABLES Final Resul t Performing Organization Address [facility] Phone Number [facility] Department [place] [address] * POCT glucose (05/25/2024 7:44 PM VALET ATTENDANT) Glucose, POC 160 70 - 199 mg/dL Blood 05/25/2024 7:44 PM VALET ATTENDANT 05/25/2024 7:44 PM VALET ATTENDANT Result [facility] Carlos Real MD LAB POCT ORDERABLES - DEVICE Fin al Result Performing Organization Address [facility] de Phone Number [facility] Department [place] [address] * POCT glucose (05/25/2024 5:24 PM VALET ATTENDANT) Glucose, POC 152 70 - 199 mg/dL Blood 05/25/2024 5:24 PM VALET ATTENDANT 05/25/2024 5:24 PM VALET ATTENDANT Carlos Real MD LAB POCT ORDERABLES - DEVICE Fin al Result Performing Organization Address [facility] Phone Number [facility] [place] [address] * POCT glucose (05/25/2024 11:37 AM VALET ATTENDANT) Glucose, POC 143 70 - 199 mg/dL Blood 05/25/2024 11:3 7 AM VALET ATTENDANT 05/25/2024 11:37 AM VALET ATTENDANT Carlos Real MD LAB POCT ORDERABLES - DEVICE Fin al Result Performing Organization Address [facility] Co [place] [address] * POCT glucose (05/25/2024 7:27 AM VALET ATTENDANT) Glucose, POC 134 70 - 199 mg/dL Blood 05/25/2024 7:27 AM VALET ATTENDANT 05/25/2024 7:27 AM VALET ATTENDANT Carlos Real MD LAB POCT ORDERABLES - DEVICE Fin al Result Performing Organization Address City/[facility] Co de Phone Number [facility] [place] [address] * eGFR (05/25/2024 12:20 AM VALET ATTENDANT) eGFR >90 >=60 mL/min/1. 73 m2 [...] reviewed 2021. Blood 05/25/2024 12:2 0 AM VALET ATTENDANT 05/25/2024 12:43 AM VALET ATTENDANT us Naila Guzman PARTS INSPECTOR LAB BLOOD ORDERABLES Final Result [facility] Department [place] [address] * Differential, auto (05/25/2024 12:20 AM VALET ATTENDANT) Neutrophil abs 5.9 1.5 - 6.5 K/cumm Imm gran abs 0.0 0.0 - 0.1 K/cumm [facility] Lymphocyte abs 2.4 0.8 - 3.3 K/cumm [facility] Monocyte abs 0.8 0.2 - 0.8 K/cumm [facility] Eosinophil abs 0.3 0.0 - 0.5 K/cumm [facility] Basophil abs 0.0 0.0 - 0.1 K/cumm [facility] Neutrophil pct 62.6 % [facility] Comment: Interpretive Data Percent cell count reference ranges are not reported, since discordance with absolute values may lead to misinterpretation of CBC data. Current Interpretive Data was last revised on 2017. Imm gran pct 0.3 % [facility] Comment: Interpretive Data Percent cell count reference ranges are not reported, since discordance with absolute values may lead to misinterpretation of CBC data. Current Interpretive Data was last revised on 2017. Lymphocyte pct 24.8 % [facility] Comment: Interpretive Data Percent cell count reference ranges are not reported, since discordance with absolute values may lead to misinterpretation of CBC data. Current Interpretive Data was last revised on 2017. Monocyte pct 8.8 % [facility] Comment: Interpretive Data Percent cell count reference ranges are not reported, since discordance with absolute values may lead to misinterpretation of CBC data. Current Interpretive Data was last revised on 2017. Eosinophil pct 3.2 % [facility] Comment: Interpretive Data Percent cell count reference ranges are not reported, since discordance with absolute values may lead to misinterpretation of CBC data. Current Interpretive Data was last revised on 2017. Basophil pct 0.3 % [facility] Comment: Interpretive Data Percent cell count reference ranges are not reported, since discordance with absolute values may lead to misinterpretation of CBC data. Current Interpretive Data was last revised on 2017. Blood 05/25/2024 12:2 0 AM VALET ATTENDANT 05/25/2024 12:29 AM VALET ATTENDANT us Naila Guzman NP LAB BLOOD ORDERABLES Final Result [facility] Department [place] [address] * (ABNORMAL) CBC with auto differential (05/25/2024 12:20 AM VALET ATTENDANT) Pathologist [facility] WBC 9.5 3.8 - 9.9 K/cumm Hgb 12.8 11.9 - 15.5 g/dL [facility] Hct 40.0 35.6 - 45.5 % [facility] Plt 246 150 - 400 K/cumm [facility] MPV 9.8 9.1 - 12.3 fL [facility] RBC 4.42 3.90 - 5.20 M/cumm [facility] MCV 90.5 81.3 - 96.4 fL [facility] MCH 29.0 27.1 - 33.3 pg [facility] MCHC 32.0(L) 32.3 - 35.7 g/dL [facility] RDW CV 13.5 11.1 - 14.9 % [facility] RDW SD 45.3 35.7 - 48.1 fL [facility] NRBC abs 0.00 0.00 - 0.01 K/cumm [facility] Blood 05/25/2024 12:2 0 AM VALET ATTENDANT 05/25/2024 12:29 AM VALET ATTENDANT Naila Guzman NP LAB BLOOD ORDERABLES [place] [address] * Phosphorus (05/25/2024 12:20 AM VALET ATTENDANT) Pathologist [facility] Phosphorus, pl 3.1 2.3 - 4.5 mg/dL Blood 05/25/2024 12:2 0 AM VALET ATTENDANT 05/25/2024 12:29 AM VALET ATTENDANT Naila Guzman PARTS INSPECTOR LAB BLOOD ORDERABLES Final Result Performing Organization Address [facility] Co de Phone Number [facility] [place] [address] * Magnesium (05/25/2024 12:20 AM VALET ATTENDANT) [facility] Magnesium 1.9 1.4 - 2.5 mg/dL Blood 05/25/2024 12:2 0 AM VALET ATTENDANT 05/25/2024 12:29 AM VALET ATTENDANT Naila Guzman NP LAB BLOOD ORDERABLES Final Result Performing Organization Address City/[facility] Co de Phone Number [facility] [place] [address] * (ABNORMAL) Comprehensive metabolic panel (05/25/2024 12:20 AM VALET ATTENDANT) Pathologist [facility] Sodium 138 135 - 145 mmol/L Potassium, pl 4.4 3.3 - 4.9 mmol/L [facility] Chloride 101 97 - 110 mmol/L [facility] CO2 29 22 - 32 mmol/L [facility] Anion gap 8 2 - 15 mmol/L [facility] BUN 20 6 - 25 mg/dL [facility] Creatinine 0.69 0.60 - 1.10 mg/dL [facility] Glucose 156 70 - 199 mg/dL [facility] [...] total 0.5 0.1 - 1.2 mg/dL [facility] Protein, pl 7.4 6.5 - 8.5 g/dL [facility] Albumin 3.4(L) 3.5 - 5.0 g/dL [facility] Alk phos 67 40 - 130 Units/L [facility] ALT 18 7 - 45 Units/L [facility] AST 16 10 - 45 Units/L [facility] Blood 05/25/2024 12:2 0 AM VALET ATTENDANT 05/25/2024 12:29 AM VALET ATTENDANT us Naila Guzman NP LAB BLOOD ORDERABLES Final Result Performing Organization Address [facility] Co de Phone Number [facility] Department [place] [address] * POCT glucose (05/24/2024 8:13 PM VALET ATTENDANT) [facility] Signature Glucose, POC 171 70 - 199 mg/dL Blood 05/24/2024 8:13 PM VALET ATTENDANT 05/24/2024 8:13 PM VALET ATTENDANT us Carlos Real MD LAB POCT ORDERABLES - DEVICE Fin al Result Performing Organization Address [facility] Co de Phone Number [facility] Department [place] [address] * POCT glucose (05/24/2024 5:17 PM VALET ATTENDANT) Glucose, POC 133 70 - 199 mg/dL Blood 05/24/2024 5:17 PM VALET ATTENDANT 05/24/2024 5:17 PM VALET ATTENDANT Carlos Real MD LAB POCT ORDERABLES - DEVICE Fin al Result Performing Organization Address [facility] de Phone Number [facility] [employer] [address] * POCT glucose (05/24/2024 12:49 PM VALET ATTENDANT) Glucose, POC 180 70 - 199 mg/dL Blood 05/24/2024 12:4 9 PM VALET ATTENDANT 05/24/2024 12:49 PM VALET ATTENDANT Carlos Real MD LAB POCT ORDERABLES - DEVICE Fin al Result Performing Organization Address [facility] de Phone Number [facility] [place] [address] * POCT glucose (05/24/2024 9:22 AM VALET ATTENDANT) Pathologist [facility] Glucose, POC 139 70 - 199 mg/dL Blood 05/24/2024 9:22 AM VALET ATTENDANT 05/24/2024 9:22 AM VALET ATTENDANT Carlos Real MD LAB POCT ORDERABLES - DEVICE Fin al Result Performing Organization Address [facility] de Phone Number [facility] [place] [address] * Herpes Simplex Virus (HSV) PCR Oral (05/24/2024 8:47 AM VALET ATTENDANT) [facility] HSV DNA Not Detected Not Detected [facility] Comment: Interpretive Data This assay is [...] reviewed on 08/21/2018 Oral 05/24/2024 8:47 AM VALET ATTENDANT 05/24/2024 9:24 AM VALET ATTENDANT Narrative [facility] - 05/24/2024 4:28 PM VALET ATTENDANT Oral ulcer swab Naila Guzman NP LAB MICROBIOLOGY - GENERAL ORDERABLES Final Result [facility] Department [place] [address] [facility] * POCT glucose (05/24/2024 8:22 AM VALET ATTENDANT) Pathologist [facility] Glucose, POC 132 70 - 199 mg/dL Blood 05/24/2024 8:22 AM VALET ATTENDANT 05/24/2024 8:22 AM VALET ATTENDANT Carlos Real MD LAB POCT ORDERABLES - DEVICE Fin al Result Performing Organization Address City/[facility]/ZIP Co de Phone Number [facility] Department [place] [address] * eGFR (05/24/2024 12:29 AM VALET ATTENDANT) eGFR 87 >=60 mL/min/1. 73 m2 Comment: [...] reviewed 2021. Blood 05/24/2024 12:2 9 AM VALET ATTENDANT 05/24/2024 12:54 AM VALET ATTENDANT us Naila Guzman PARTS INSPECTOR LAB BLOOD ORDERABLES Final Result [facility] Department [place] [address] * (ABNORMAL) Differential, auto (05/24/2024 12:29 AM VALET ATTENDANT) Neutrophil abs 5.3 1.5 - 6.5 K/cumm Imm gran abs 0.0 0.0 - 0.1 K/cumm [facility] Lymphocyte abs 3.0 0.8 - 3.3 K/cumm [facility] Monocyte abs 0.9(H) 0.2 - 0.8 K/cumm [facility] Eosinophil abs 0.3 0.0 - 0.5 K/cumm [facility] Basophil abs 0.0 0.0 - 0.1 K/cumm [facility] Neutrophil pct 55.8 % [facility] Comment: Interpretive Data Percent cell count reference ranges are not reported, since discordance with absolute values may lead to misinterpretation of CBC data. Current Interpretive Data was last revised on 2017. Imm gran pct 0.4 % [facility] Comment: Interpretive Data Percent cell count reference ranges are not reported, since discordance with absolute values may lead to misinterpretation of CBC data. Current Interpretive Data was last revised on 2017. Lymphocyte pct 31.4 % [facility] Comment: Interpretive Data Percent cell count reference ranges are not reported, since discordance with absolute values may lead to misinterpretation of CBC data. Current Interpretive Data was last revised on 2017. Monocyte pct 9.0 % [facility] Comment: Interpretive Data Percent cell count reference ranges are not reported, since discordance with absolute values may lead to misinterpretation of CBC data. Current Interpretive Data was last revised on 2017. Eosinophil pct 3.0 % [facility] Comment: Interpretive Data Percent cell count reference ranges are not reported, since discordance with absolute values may lead to misinterpretation of CBC data. Current Interpretive Data was last revised on 2017. Basophil pct 0.4 % [facility] [facility] Comment: Interpretive Data Percent cell count reference ranges are not reported, since discordance with absolute values may lead to misinterpretation of CBC data. Current Interpretive Data was last revised on 2017. Blood 05/24/2024 12:2 9 AM VALET ATTENDANT 05/24/2024 12:54 AM VALET ATTENDANT us Naila Guzman PARTS INSPECTOR LAB BLOOD ORDERABLES Final Result [facility] Department [place] [address] * CBC with auto differential (05/24/2024 12:29 AM VALET ATTENDANT) WBC 9.5 3.8 - 9.9 K/cumm Hgb 12.6 11.9 - 15.5 g/dL [facility] Hct 39.0 35.6 - 45.5 % [facility] Plt 223 150 - 400 K/cumm [facility] MPV 9.6 9.1 - 12.3 fL [facility] RBC 4.23 3.90 - 5.20 M/cumm [facility] MCV 92.2 81.3 - 96.4 fL [facility] MCH 29.8 27.1 - 33.3 pg [facility] MCHC 32.3 32.3 - 35.7 g/dL [facility] RDW CV 13.7 11.1 - 14.9 % [facility] RDW SD 46.5 35.7 - 48.1 fL [facility] NRBC abs 0.00 0.00 - 0.01 K/cumm [facility] Blood 05/24/2024 12:2 9 AM VALET ATTENDANT 05/24/2024 12:54 AM VALET ATTENDANT us Naila Guzman PARTS INSPECTOR LAB BLOOD ORDERABLES Final Result Performing Organization Address City/[facility] Co de Phone Number [facility] [place] [address] * Phosphorus (05/24/2024 12:29 AM VALET ATTENDANT) [facility] Phosphorus, pl 3.6 2.3 - 4.5 mg/dL Blood 05/24/2024 12:2 9 AM VALET ATTENDANT 05/24/2024 12:54 AM VALET ATTENDANT us Naila Guzman NP LAB BLOOD ORDERABLES Final Result Performing Organization Address [facility] [place] [address] * Magnesium (05/24/2024 12:29 AM VALET ATTENDANT) [facility] Magnesium 1.9 1.4 - 2.5 mg/dL Blood 05/24/2024 12:2 9 AM VALET ATTENDANT 05/24/2024 12:54 AM VALET ATTENDANT Naila Guzman NP LAB BLOOD ORDERABLES Final Result Performing Organization Address [facility] [place] [address] * (ABNORMAL) Comprehensive metabolic panel (05/24/2024 12:29 AM VALET ATTENDANT) [facility] Sodium 139 135 - 145 mmol/L Potassium, pl 4.3 3.3 - 4.9 mmol/L [facility] Chloride 103 97 - 110 mmol/L [facility] CO2 29 22 - 32 mmol/L [facility] Anion gap 7 2 - 15 mmol/L [facility] BUN 19 6 - 25 mg/dL [facility] Creatinine 0.75 0.60 - 1.10 mg/dL [facility] Glucose 157 70 - 199 mg/dL [facility] 2022. Calcium 9.2 8.5 - 10.3 mg/dL [facility] Bilirubin, total 0.4 0.1 - 1.2 mg/dL [facility] Protein, pl 7.1 6.5 - 8.5 g/dL [facility] Albumin 3.3(L) 3.5 - 5.0 g/dL [facility] Alk phos 65 40 - 130 Units/L [facility] ALT 18 7 - 45 Units/L [facility] AST 17 10 - 45 Units/L [facility] Blood 05/24/2024 12:2 9 AM VALET ATTENDANT 05/24/2024 12:54 AM VALET ATTENDANT us Naila Guzman PARTS INSPECTOR LAB BLOOD ORDERABLES Final Result Performing Organization Address [facility]/ZIP Co de Phone Number [facility] Department [place] [address] * POCT glucose (05/23/2024 8:16 PM VALET ATTENDANT) [facility] Glucose, POC 145 70 - 199 mg/dL Blood 05/23/2024 8:16 PM VALET ATTENDANT 05/23/2024 8:16 PM VALET ATTENDANT Carlos Real MD LAB POCT ORDERABLES - DEVICE Fin al Result Performing Organization Address [facility]/ZIP Co de Phone Number [facility] [place] [address] * POCT glucose (05/23/2024 6:14 PM VALET ATTENDANT) Glucose, POC 181 70 - 199 mg/dL Blood 05/23/2024 6:14 PM VALET ATTENDANT 05/23/2024 6:14 PM VALET ATTENDANT Carlos Real MD LAB POCT ORDERABLES - DEVICE Fin al Result Performing Organization Address City/[facility] Co [place] [address] * POCT glucose (05/23/2024 12:17 PM VALET ATTENDANT) Glucose, POC 159 70 - 199 mg/dL Blood 05/23/2024 12:1 7 PM VALET ATTENDANT 05/23/2024 12:17 PM VALET ATTENDANT Cem Knapp MD LAB POCT ORDERABLES - DEVIC E Final Result Performing Organization Address [facility] Co [place] [address] * US Vein Duplex Lower Extremity Bilateral Complete (05/23/2024 11:45 AM VALET ATTENDANT) LV EF % CONS SCIMAGE Anatomical Region Laterality Modality Vascular Bilateral Ultrasound 05/23/2024 11:1 2 AM VALET ATTENDANT Narrative 05/23/2024 9:43 PM VALET ATTENDANT [employer] - Department of Vascular Surgery, Vascular Laboratory [address] [place] [id number] Lower Extremity Venous Ultrasound Report Patient Name: MOHSEN MARQUES M : 1955 (68y 11m) Study Date: 05/23/2024 11:12:03 AM Gender: F Tech: VELVET Location: [id number] Ref Provider: CARLOS REAL Quality: Adequate Order Provider: CARLOS REAL PROCEDURES: Vascular Report: Venous Duplex imaging was performed bilaterally in the lower extremities. The common femoral, femoral, popliteal, posterior tibial, peroneal veins were evaluated for patency, spontaneity and phasicity with Doppler, compression and augmentation maneuvers. Great saphenous vein proximal at the junction was evaluated with compression maneuvers. INDICATIONS: Localized edema. FINDINGS: Performing Dairy Specialist: Marlys Castillo RVT. Bilateral: Venous Doppler signals [...] provided above. Electronically Signed By: Vu Obregon MD, FACS 05/23/2024 9:42:19 PM VALET ATTENDANT Procedure Note Vu Obregon MD - 05/23/2024 [facility] - Department of Vascular Surgery,Vascular Laboratory [address] [place], [place] [id number] Lower Extremity Venous Ultrasound Report Patient Name: MOHSEN MARQUES M : 1955 (68y 11m) Study Date: 05/23/2024 11:12:03 AM Gender: F Tech: VELVET Location: [id number] Ref Provider: CARLOS REAL Quality: Adequate Order Provider: CARLOS REAL PROCEDURES: Vascular Report: Venous Duplex imaging was performed bilaterally in the lower extremities.The common femoral, femoral, popliteal, posterior tibial, peroneal veins wereevaluated for patency, spontaneity and phasicity with Doppler, compression and augmentationmaneuvers. Great saphenous vein proximal at the junction was evaluated with compressionmaneuvers. INDICATIONS: Localized edema. FINDINGS: Performing Dairy Specialist: Marlys Castillo RVT. Bilateral: Venous Doppler signals [...] Vu Obregon MD FACS 05/23/2024 9:42:19 PM VALET ATTENDANT Carlos Real MD [facility] PROCEDURES Final Result * (ABNORMAL) POCT glucose (05/23/2024 8:16 AM VALET ATTENDANT) Glucose, POC 204(H) 70 - 199 mg/dL Blood 05/23/2024 8:16 AM VALET ATTENDANT 05/23/2024 8:16 AM VALET ATTENDANT Cem Knapp MD LAB POCT ORDERABLES - DEVIC E Final Result [facility] Department [place] [address] * (ABNORMAL) Differential, auto (05/23/2024 2:30 AM VALET ATTENDANT) Neutrophil abs 8.0(H) 1.5 - 6.5 K/cumm Imm gran abs 0.1 0.0 - 0.1 K/cumm [facility] Lymphocyte abs 2.6 0.8 - 3.3 K/cumm [facility] Monocyte abs 1.0(H) 0.2 - 0.8 K/cumm [facility] Eosinophil abs 0.3 0.0 - 0.5 K/cumm [facility] Basophil abs 0.0 0.0 - 0.1 K/cumm [facility] Neutrophil pct 66.5 % [facility] Comment: Interpretive Data Percent cell count reference ranges are not reported, since discordance with absolute values may lead to misinterpretation of CBC data. Current Interpretive Data was last revised on 2017. Imm gran pct 0.5 % [facility] Comment: Interpretive Data Percent cell count reference ranges are not reported, since discordance with absolute values may lead to misinterpretation of CBC data. Current Interpretive Data was last revised on 2017. Lymphocyte pct 21.9 % [facility] Comment: Interpretive Data Percent cell count reference ranges are not reported, since discordance with absolute values may lead to misinterpretation of CBC data. Current Interpretive Data was last revised on 2017. Monocyte pct 8.5 % [facility] Comment: Interpretive Data Percent cell count reference ranges are not reported, since discordance with absolute values may lead to misinterpretation of CBC data. Current Interpretive Data was last revised on 2017. Eosinophil pct 2.3 % [facility] Comment: Interpretive Data Percent cell count reference ranges are not reported, since discordance with absolute values may lead to misinterpretation of CBC data. Current Interpretive Data was last revised on 2017. Basophil pct 0.3 % [facility] Comment: Interpretive Data Percent cell count reference ranges are not reported, since discordance with absolute values may lead to misinterpretation of CBC data. Current Interpretive Data was last revised on 2017. Blood 05/23/2024 2:30 AM VALET ATTENDANT 05/23/2024 1:03 AM VALET ATTENDANT us Naila Guzman PARTS INSPECTOR LAB BLOOD ORDERABLES Final Result [facility] Department of Laboratories [place], [place] [id number] * (ABNORMAL) CBC with auto differential (05/23/2024 2:30 AM VALET ATTENDANT) WBC 11.9(H) 3.8 - 9.9 K/cumm Hgb 12.8 11.9 - 15.5 g/dL [facility] Hct 39.6 35.6 - 45.5 % [facility] Plt 254 150 - 400 K/cumm [facility] MPV 9.7 9.1 - 12.3 fL [facility] RBC 4.43 3.90 - 5.20 M/cumm [facility] MCV 89.4 81.3 - 96.4 fL [facility] MCH 28.9 27.1 - 33.3 pg [facility] MCHC 32.3 32.3 - 35.7 g/dL [facility] RDW CV 13.7 11.1 - 14.9 % [facility] RDW SD 44.6 35.7 - 48.1 fL [facility] NRBC abs 0.00 0.00 - 0.01 K/cumm [facility] Blood 05/23/2024 2:30 AM VALET ATTENDANT 05/23/2024 1:03 AM VALET ATTENDANT us Naila Guzman PARTS INSPECTOR LAB BLOOD ORDERABLES Final Result Performing Organization Address City/State/[facility] Co de Phone Number [facility] Department [place] [address] * eGFR (05/23/2024 12:42 AM VALET ATTENDANT) eGFR 84 >=60 mL/min/1. 73 m2 Comment: [...] reviewed 2021. Blood 05/23/2024 12:4 2 AM VALET ATTENDANT 05/23/2024 1:02 AM VALET ATTENDANT Naila Guzman NP LAB BLOOD ORDERABLES Final Result Performing Organization Address [facility] de Phone Number [facility] [place] [address] * Type and screen (05/23/2024 12:42 AM VALET ATTENDANT) ABO Rh O Positive Dilcia, indirect Negative [facility] Blood 05/23/2024 12:4 2 AM VALET ATTENDANT 05/23/2024 12:52 AM VALET ATTENDANT Narrative [facility] - 05/23/2024 1:53 AM VALET ATTENDANT Has the patient had Daratumumab or Isatuximab in the past 6 months?->Unknown Naila Guzman NP LAB BLOOD BANK TEST ORDERA BLES Final Result Performing Organization Address [facility] de Phone Number [facility] [place] [address] * Uric acid (05/23/2024 12:42 AM VALET ATTENDANT) Pathologist [facility] Uric acid 5.5 2.5 - 7.0 mg/dL Blood 05/23/2024 12:4 2 AM VALET ATTENDANT 05/23/2024 1:02 AM VALET ATTENDANT Narrative [facility] - 05/23/2024 1:34 AM VALET ATTENDANT Monday and only. Morning draw. . Naila Guzman NP LAB BLOOD ORDERABLES Final Result Performing Organization Address [facility] [place] [address] * Phosphorus (05/23/2024 12:42 AM VALET ATTENDANT) Phosphorus, pl 4.4 2.3 - 4.5 mg/dL Blood 05/23/2024 12:4 2 AM VALET ATTENDANT 05/23/2024 1:02 AM VALET ATTENDANT Naila Guzman NP LAB BLOOD ORDERABLES Final Result Performing Organization Address [facility] de Phone Number [facility] [place] [address] * Magnesium (05/23/2024 12:42 AM VALET ATTENDANT) [facility] Magnesium 1.9 1.4 - 2.5 mg/dL Blood 05/23/2024 12:4 2 AM VALET ATTENDANT 05/23/2024 1:02 AM VALET ATTENDANT Naila Guzman NP LAB BLOOD ORDERABLES Final Result Performing Organization Address [facility] de Phone Number [facility] [place] [address] * Lactate dehydrogenase (LD) (05/23/2024 12:42 AM VALET ATTENDANT) [facility] Lactate dehydrogenase (LDH) 247 100 - 250 Units/L Blood 05/23/2024 12:4 2 AM VALET ATTENDANT 05/23/2024 1:02 AM VALET ATTENDANT Narrative [facility] - 05/23/2024 1:34 AM VALET ATTENDANT Monday and only. Morning draw. Naila Guzman NP LAB BLOOD ORDERABLES Final Result Performing Organization Address [facility] [place] [address] * Comprehensive metabolic panel (05/23/2024 12:42 AM VALET ATTENDANT) [facility] Sodium 136 135 - 145 mmol/L Potassium, pl 4.3 3.3 - 4.9 mmol/L [facility] Chloride 101 97 - 110 mmol/L [facility] CO2 29 22 - 32 mmol/L [facility] Anion gap 6 2 - 15 mmol/L [facility] BUN 18 6 - 25 mg/dL [facility] Creatinine 0.77 0.60 - 1.10 mg/dL [facility] Glucose 194 70 - 199 mg/dL [facility] 2022. Calcium 9.5 8.5 - 10.3 mg/dL [facility] Bilirubin, total 0.5 0.1 - 1.2 mg/dL [facility] Protein, pl 7.4 6.5 - 8.5 g/dL [facility] Albumin 3.5 3.5 - 5.0 g/dL [facility] Alk phos 71 40 - 130 Units/L [facility] ALT 19 7 - 45 Units/L [facility] AST 22 10 - 45 Units/L [facility] Blood 05/23/2024 12:4 2 AM VALET ATTENDANT 05/23/2024 1:02 AM VALET ATTENDANT us Naila Guzman NP LAB BLOOD ORDERABLES Final Result [facility] Department [place] [address] * (ABNORMAL) POCT glucose (05/22/2024 8:56 PM VALET ATTENDANT) [facility] Glucose, POC 210(H) 70 - 199 mg/dL Blood 05/22/2024 8:56 PM VALET ATTENDANT 05/22/2024 8:56 PM VALET ATTENDANT us Cem Knapp MD LAB POCT ORDERABLES - DEVIC E Final Result Performing Organization Address [facility] Co de Phone Number [facility] [place] [address] * POCT glucose (05/22/2024 6:09 PM VALET ATTENDANT) Glucose, POC 142 70 - 199 mg/dL Blood 05/22/2024 6:09 PM VALET ATTENDANT 05/22/2024 6:09 PM VALET ATTENDANT us Leo Henry MD LAB POCT ORDERABLES - NILESH CE Final Result Performing Organization Address [facility] Co de Phone Number [facility] [place] [address] * POCT glucose (05/22/2024 4:26 PM VALET ATTENDANT) Glucose, POC 133 70 - 199 mg/dL Blood 05/22/2024 4:26 PM VALET ATTENDANT 05/22/2024 4:26 PM VALET ATTENDANT us Leo Henry MD LAB POCT ORDERABLES - NILESH CE Final Result Performing Organization Address [facility] Co de Phone Number [facility] Department [place] [address] * CT Abdomen Pelvis W Contrast (05/22/2024 2:32 PM VALET ATTENDANT) Anatomical Region Laterality Modality Body N/A Computed Tomogra phy 05/22/2024 4:35 PM VALET ATTENDANT Impressions 05/22/2024 5:16 PM VALET ATTENDANT No acute findings within the abdomen or pelvis. Dictated by: Yesi Mendes M.D. The radiology attending physician has personally reviewed this study, and had reviewed and/or edited this written report and agrees with it. Electronically signed by: Kelli Palmer M.D. Narrative 05/22/2024 5:16 PM VALET ATTENDANT EXAMINATION: Computed tomography of the abdomen [...] it. Electronically signed by: Kelli Palmer M.D. us Leo Henry MD IMG CT PROCEDURES Final Re sult * POCT glucose (05/22/2024 12:58 PM VALET ATTENDANT) Glucose, POC 177 70 - 199 mg/dL Blood 05/22/2024 12:5 8 PM VALET ATTENDANT 05/22/2024 12:58 PM VALET ATTENDANT Leo Henry MD LAB POCT ORDERABLES - NILESH CE Final Result [facility] Department [place] [address] * (ABNORMAL) POCT glucose (05/22/2024 9:29 AM VALET ATTENDANT) Glucose, POC 291(H) 70 - 199 mg/dL Blood 05/22/2024 9:29 AM VALET ATTENDANT 05/22/2024 9:29 AM VALET ATTENDANT us Leo Henry MD LAB POCT ORDERABLES - NILESH CE Final Result Performing Organization Address City/[facility]/ZIP Co de Phone Number [facility] [place] [address] * POCT glucose (05/22/2024 6:54 AM VALET ATTENDANT) Glucose, POC 142 70 - 199 mg/dL Blood 05/22/2024 6:54 AM VALET ATTENDANT 05/22/2024 6:54 AM VALET ATTENDANT us Jimmie Zavala MD LAB POCT ORDERABLES - DEVICE Fin al Result Performing Organization Address [facility] Co de Phone Number [facility] Department [place] [address] * CT Chest PE (CTA) W Contrast (05/22/2024 1:31 AM VALET ATTENDANT) Anatomical Region Laterality Modality Body N/A Computed Tomogra phy 05/22/2024 2:38 AM VALET ATTENDANT Impressions 05/22/2024 9:12 AM VALET ATTENDANT No pulmonary embolism. Dictated by: Miguel Milligan MD The radiology attending physician has personally reviewed this study, and had reviewed and/or edited this written report and agrees with it. Electronically signed by: Jayson Rockwell M.D. Narrative 05/22/2024 9:12 AM VALET ATTENDANT EXAMINATION: CT CHEST PE (CTA) W [...] Result * D-dimer, quantitative (05/22/2024 12:24 AM VALET ATTENDANT) D-Dimer 414 <=499 ng/mL FEU Comment: [...] 68, VTE cut-off 680 ng/ml FEU. References; Schoutewa HT et al. Brit Med J. 2013;346:f2492. Pooja et al. Annals Int Med. 2015;163:701-11. Current interpretive data was last revised on 2019. Blood 05/22/2024 12:2 4 AM VALET ATTENDANT 05/22/2024 12:42 AM VALET ATTENDANT Angeline Soler MD LAB BLOOD ORDERABLES F inal Result [facility] Department [place] [address] * Troponin I high-sensitivity 2-hour (05/21/2024 11:09 PM VALET ATTENDANT) Trop I hs 5 <=17 ng/L Comment: Interpretive Data For further hscTnI resources including the diagnostic algorithm and an aid in interpretation, copy and paste this link: https://bjhlab.testcatalog.org/show/hsTrop-1 Current Interpretive Data last revised 2019. Trop I hs delta See Comment ng/L [facility] Comment:Inappropriate collec tion time to report a delta. Trop I hs pct delta See Comment % [facility] Comment:Inappropriate collec tion time to report a delta. Trop I hs interp See Comment [facility] Comment:Inappropriate collec tion time to report a delta. Blood 05/21/2024 11:0 9 PM VALET ATTENDANT 05/21/2024 11:26 PM VALET ATTENDANT us Cira Castro MD LAB BLOOD ORDERABL ES Final Result Performing Organization Address [facility] Co de Phone Number [facility] Department [place] [address] * (ABNORMAL) Urinalysis reflex to microscopic and culture Urine (05/21/2024 11:09 PM VALET ATTENDANT) Color, ur Yellow Yellow Clarity, ur Clear Clear [facility] Specific gravity, ur 1.025 1.003 - 1.030 [facility] pH, urine 6.0 [facility] Comment: Interpretive Data U rine pH is affected by diet, medications, systemic acid-base disturbances, and renal tubular function. pH may affect urinary stone formation. For example, urine pH below 6.0 may help reduce the tendency for calcium phosphate stones and pH greater than 6.0 may reduce the tendency for uric acid stone formation. Source: [facility] Current Interpretive Data was last revised on 2017 Protein, ur ql 1+(A) Negative [facility] Glucose, ur ql Negative Negative [facility] Ketones, ur Negative Negative [facility] Bilirubin, ur Negative Negative [facility] Blood, ur Trace(A) Negative [facility] Urobilinogen, ur <2.0 <2.0 mg/dL [facility] Nitrite, ur Positive(A) Negative [facility] Leukocyte esterase, ur 1+(A) Negative [facility] UA reflex comment Reflex to microscopic UA will be performed. [facility] Urine 05/21/2024 11:0 9 PM VALET ATTENDANT 05/21/2024 11:22 PM VALET ATTENDANT us Angeline Soler MD LAB MICROBIOLOGY - GEN ERAL ORDERABLES Final Result Performing Organization Address City/State/[facility] Co de Phone Number [facility] Department [place] [address] * Respiratory pathogen panel Nasopharyngeal (05/21/2024 11:09 PM VALET ATTENDANT) Pathologist [facility] Influenza A RNA Not Detected Not Detected Influenza B RNA Not Detected Not Detected [facility] RSV RNA Not Detected Not Detected [facility] COVID-19 RNA Not Detected Not Detected [facility] Coronavirus 229E RNA Not Detected Not Detected [facility] Coronavirus HKU1 RNA Not Detected Not Detected [facility] Coronavirus NL63 RNA Not Detected Not Detected [facility] Coronavirus OC43 RNA Not Detected Not Detected [facility] Adenovirus DNA Not Detected Not Detected [facility] Metapneumovirus RNA Not Detected Not Detected [facility] Rhinovirus/Enterov irus RNA Not Detected Not Detected [facility] Parainfluenza 1 RNA Not Detected Not Detected [facility] Parainfluenza 2 RNA Not Detected Not Detected [facility] Parainfluenza 3 RNA Not Detected Not Detected [facility] Parainfluenza 4 RNA Not Detected Not Detected [facility] [facility] B. pertussis DNA Not Detected Not Detected [facility] B. parapertussis DNA Not Detected Not Detected [facility] C. pneumoniae DNA Not Detected Not Detected [facility] M. pneumoniae DNA Not Detected Not Detected [facility] Nasopharyngeal 05/21/2024 11 :09 PM VALET ATTENDANT 05/22/2024 4:48 AM VALET ATTENDANT Narrative [facility] - 05/22/2024 5:55 AM VALET ATTENDANT Is the Patient experiencing symptoms consistent with COVID?->No Surveillance testing for transplant patient?->No Interpretive Data The [employer] Film[employer] Respiratory Panel (RP2.1) assay is a [...] assay has FDA clearance for testing of PARTS INSPECTOR swabs. The performance of additional specimen types has been assessed by the performing laboratory. The performance characteristics of this assay have been determined by [facility] Molecular Infectious Disease Laboratory. Current interpretive data was last revised on 22. Angeline Soler MD LAB MICROBIOLOGY - GEN ERAL ORDERABLES Final Result [facility] Department [place] [address] * (ABNORMAL) Urinalysis, microscopic only (05/21/2024 11:09 PM VALET ATTENDANT) WBC, ur 11-20(A) 0 - 5 /HPF RBC, ur 3-5(A) 0 - 2 /HPF [facility] Epithelial cells, squamous, ur 1-5 0 - 5 /HPF [facility] Bacteria, ur 3+(A) [facility] Yeast, ur Trace(A) [facility] Mucous, ur Present(A) [facility] Culture Reflex Comment Reflex to urine culture will be performed. [facility] Urine 05/21/2024 11:0 9 PM VALET ATTENDANT 05/21/2024 11:21 PM VALET ATTENDANT us Angeline Soler MD LAB URINE ORDERABLES F inal Result [facility] Department [place] [address] * (ABNORMAL) Urine culture Urine (05/21/2024 11:09 PM VALET ATTENDANT) Report Amended Report - Complete: Greater than or equal to 100,000 colonies/mL of Escherichia coli Plus growth of clinically insignificant bacterial yesenia. (.) Organism ESCHERICHIA COLI [facility] Organism PLUS GROWTH OF CLINICALLY INSIGNIFICANT YESENIA. [facility] Urine 05/21/2024 11:0 9 PM VALET ATTENDANT 05/22/2024 2:40 AM VALET ATTENDANT Narrative [facility] - 05/25/2024 10:36 AM VALET ATTENDANT Urine culture reflexed based upon urinalysis results. Testing performed by [facility] Microbiology Laboratory ([phone]) Organism Antibiotic Method Susceptibility Escherichia coli Ampicillin [...] Edited Result - Final Performing Organization Address City/[facility]/ZIP Co de Phone Number [facility] Department of [place] [address] * POCT glucose (05/21/2024 8:55 PM VALET ATTENDANT) Pathologist [facility] Glucose, POC 139 70 - 199 mg/dL Blood 05/21/2024 8:55 PM VALET ATTENDANT 05/21/2024 8:55 PM VALET ATTENDANT Notinfile Unknown LAB POCT ORDERABLES - DEVICE F inal Result Performing Organization Address [facility] de Phone [place] [address] * Troponin I high-sensitivity 4-hour (05/21/2024 7:26 PM VALET ATTENDANT) [facility] Trop I hs 4 <=17 ng/L Comment: Interpretive Data For further hscTnI resources including the diagnostic algorithm and an aid in interpretation, copy and paste this link: https://bjhlab.testcatalog.org/show/hsTrop-1 Current Interpretive Data last revised 2019. Trop I hs delta -1 ng/L [facility] Trop I hs interp Insignificant [facility] Blood 05/21/2024 7:26 PM VALET ATTENDANT 05/21/2024 7:37 PM VALET ATTENDANT Cira Castro MD LAB BLOOD ORDERABL ES Final Result Performing Organization Address [facility]/ZIP [place] [address] * Troponin I high-sensitivity series (baseline, 2hr, 4hr, 6hr) (05/21/2024 4:20 PM VALET ATTENDANT) Trop I hs 5 <=17 ng/L Comment: Interpretive Data For further hscTnI resources including the diagnostic algorithm and an aid in interpretation, copy and paste this link: https://bjhlab.testcatalog.org/show/hsTrop-1 Current Interpretive Data last revised 2019. Blood 05/21/2024 4:20 PM VALET ATTENDANT 05/21/2024 4:50 PM VALET ATTENDANT us Jimmie Zavala MD LAB BLOOD ORDERABLES Final Resul t Performing Organization Address [facility] Co de Phone Number [facility] [place] [address] * eGFR (05/21/2024 4:20 PM VALET ATTENDANT) eGFR >90 >=60 mL/min/1. 73 m2 [...] last reviewed 2021. Blood 05/21/2024 4:20 PM VALET ATTENDANT 05/21/2024 4:50 PM VALET ATTENDANT us Jimmie Zavala MD LAB BLOOD ORDERABLES Final Resul t [facility] [place] [address] * (ABNORMAL) Differential, auto (05/21/2024 4:20 PM VALET ATTENDANT) Neutrophil abs 8.0(H) 1.5 - 6.5 K/cumm Imm gran abs 0.0 0.0 - 0.1 K/cumm [facility] Lymphocyte abs 2.4 0.8 - 3.3 K/cumm [facility] Monocyte abs 0.8 0.2 - 0.8 K/cumm [facility] Eosinophil abs 0.2 0.0 - 0.5 K/cumm [facility] Basophil abs 0.0 0.0 - 0.1 K/cumm [facility] Neutrophil pct 69.4 % [facility] Comment: Interpretive Data Percent cell count reference ranges are not reported, since discordance with absolute values may lead to misinterpretation of CBC data. Current Interpretive Data was last revised on 2017. Imm gran pct 0.4 % [facility] Comment: Interpretive Data Percent cell count reference ranges are not reported, since discordance with absolute values may lead to misinterpretation of CBC data. Current Interpretive Data was last revised on 2017. Lymphocyte pct 21.4 % [facility] Comment: Interpretive Data Percent cell count reference ranges are not reported, since discordance with absolute values may lead to misinterpretation of CBC data. Current Interpretive Data was last revised on 2017. Monocyte pct 6.7 % [facility] Comment: Interpretive Data Percent cell count reference ranges are not reported, since discordance with absolute values may lead to misinterpretation of CBC data. Current Interpretive Data was last revised on 2017. Eosinophil pct 1.8 % [facility] Comment: Interpretive Data Percent cell count reference ranges are not reported, since discordance with absolute values may lead to misinterpretation of CBC data. Current Interpretive Data was last revised on 2017. Basophil pct 0.3 % [facility] Comment: Interpretive Data Percent cell count reference ranges are not reported, since discordance with absolute values may lead to misinterpretation of CBC data. Current Interpretive Data was last revised on 2017. Blood 05/21/2024 4:20 PM VALET ATTENDANT 05/21/2024 4:50 PM VALET ATTENDANT Jimmie Zavala MD LAB BLOOD ORDERABLES Final Resul t Performing Organization Address City/[facility]/ZIP Co de Phone Number [facility] Department [place] [address] * (ABNORMAL) CBC with auto differential (05/21/2024 4:20 PM VALET ATTENDANT) Pathologist [facility] WBC 11.4(H) 3.8 - 9.9 K/cumm Hgb 14.0 11.9 - 15.5 g/dL [facility] Hct 43.6 35.6 - 45.5 % [facility] Plt 286 150 - 400 K/cumm [facility] MPV 9.9 9.1 - 12.3 fL [facility] RBC 4.83 3.90 - 5.20 M/cumm [facility] MCV 90.3 81.3 - 96.4 fL [facility] MCH 29.0 27.1 - 33.3 pg [facility] MCHC 32.1(L) 32.3 - 35.7 g/dL [facility] RDW CV 13.6 11.1 - 14.9 % [facility] RDW SD 45.6 35.7 - 48.1 fL [facility] NRBC abs 0.00 0.00 - 0.01 K/cumm [facility] Blood Venous blood specimen / Unknown 05/21/2024 4:20 PM VALET ATTENDANT 05/21/2024 4:50 PM VALET ATTENDANT us Jimmie Zavala MD LAB BLOOD ORDERABLES Final Resul t Performing Organization Address City/[facility]/ZIP Co de Phone Number [facility] Department [place] [address] * (ABNORMAL) Hemoglobin A1c (05/21/2024 4:20 PM VALET ATTENDANT) Hgb A1C 8.7(H) 4.0 - 5.6 % Estimated Average Glucose 203 mg/dL [facility] Comment: The ADA recommends reporting an estimated Average Glucose (eAG) with all Hemoglobin A1c results using the equation derived from a study of 507 normal and diabetic adults. Minority populations were underrepresented and children were not included. (Diabetes Care 2020; 43(S1): S66-S76). The eAG is not equivalent to a fasting glucose. Blood 05/21/2024 4:20 PM VALET ATTENDANT 05/21/2024 4:55 PM VALET ATTENDANT Leo Henry MD LAB BLOOD ORDERABLES Final Result [facility] Department [place] [address] * (ABNORMAL) Lipid panel (05/21/2024 4:20 PM VALET ATTENDANT) Cholesterol 205(H) 30 - 199 mg/dL [...] 2017. Triglycerides 92 <=149 mg/dL [facility] Comment: Interpretive Data Ages < or [...] revised on 2017. HDL 55 >=40 mg/dL [facility] Comment: Interpretive Data Ages < or [...] 2017. LDL, calculated 134(H) <=129 mg/dL [facility] Comment: Interpretive Data Ages < or [...] on 2023. Non-HDL Cholesterol 150 mg/dL [facility] Comment: Interpretive Data Ages < or [...] revised on 2017. Chol/HDL ratio 4 [facility] Blood 05/21/2024 4:20 PM VALET ATTENDANT 05/21/2024 4:50 PM VALET ATTENDANT Narrative [facility] - 05/22/2024 4:17 PM VALET ATTENDANT Reflex Leo Henry MD LAB BLOOD ORDERABLES Final Result [facility] Department [place] [address] * Comprehensive metabolic panel (05/21/2024 4:20 PM VALET ATTENDANT) Sodium 140 135 - 145 mmol/L Potassium, pl 4.3 3.3 - 4.9 mmol/L [facility] Chloride 100 97 - 110 mmol/L [facility] CO2 29 22 - 32 mmol/L [facility] Anion gap 11 2 - 15 mmol/L [facility] BUN 14 6 - 25 mg/dL [facility] Creatinine 0.63 0.60 - 1.10 mg/dL [facility] Glucose 119 70 - 199 mg/dL [facility] [...] Calcium 10.0 8.5 - 10.3 mg/dL [facility] Bilirubin, total 0.7 0.1 - 1.2 mg/dL [facility] Protein, pl 8.5 6.5 - 8.5 g/dL [facility] Albumin 3.9 3.5 - 5.0 g/dL [facility] Alk phos 83 40 - 130 Units/L [facility] ALT 23 7 - 45 Units/L [facility] AST 22 10 - 45 Units/L [facility] Blood 05/21/2024 4:20 PM VALET ATTENDANT 05/21/2024 4:50 PM VALET ATTENDANT us Jimmie Zavala MD LAB BLOOD ORDERABLES Final Resul t [facility] Department [place] [address] * XR Chest Pa Lateral 2 Views (05/21/2024 2:23 PM VALET ATTENDANT) Anatomical Region Laterality Modality Body, Chest N/A Computed Radiogr aphy 05/21/2024 2:28 PM VALET ATTENDANT Impressions 05/21/2024 2:36 PM VALET ATTENDANT The current study is compared with [...] Jaime Neves M.D. Narrative 05/21/2024 2:36 PM VALET ATTENDANT EXAMINATION: 2 view chest radiograph Procedure [...] it. Electronically signed by: Jaime Neves M.D. Jimmie Zavala MD IMG XR PROCEDURES Final Result * POCT glucose (05/21/2024 1:39 PM VALET ATTENDANT) Glucose, POC 113 70 - 199 mg/dL Blood 05/21/2024 1:39 PM VALET ATTENDANT 05/21/2024 1:39 PM VALET ATTENDANT us Notinfile Unknown LAB POCT ORDERABLES - DEVICE F inal Result [facility] Department [place] [address] * ECG 12-LEAD (05/21/2024 1:36 PM VALET ATTENDANT) Narrative [facility] - 05/21/2024 1:36 PM VALET ATTENDANT Gil Mcgrath MD 05/21/2024 1:37 PM [...] the ED Gil Mcgrath MD 05/21/24 1337 us Jimmie Zavala MD ECG ORDERABLES Final Result [facility] * US Axillary Breast Left (05/21/2024 12:13 PM VALET ATTENDANT) Anatomical Region Laterality Modality Upper Extremities Left Ultrasound 05/21/2024 12:2 3 PM VALET ATTENDANT Impressions 05/21/2024 12:23 PM VALET ATTENDANT 1. Limited ultrasound due to extensive [...] Alicia Wilcox M.D. Narrative 05/21/2024 12:23 PM VALET ATTENDANT EXAMINATION: LEFT AXILLARY ULTRASOUND HISTORY: Patient [...] recurrence. Electronically signed by: Alicia Wilcox M.D. us Khris Arthur MD IM US PROCEDURES Fi nal Result * (ABNORMAL) Urinalysis reflex to microscopic and culture Urine, clean voided (05/14/2024 4:50 PM VALET ATTENDANT) Color, ur Straw Yellow Clarity, ur Clear Clear [facility] Specific gravity, ur 1.025 1.003 - 1.030 [facility] pH, urine 5.5 [facility] Comment: Interpretive Data U rine pH is affected by diet, medications, systemic acid-base disturbances, and renal tubular function. pH may affect urinary stone formation. For example, urine pH below 6.0 may help reduce the tendency for calcium phosphate stones and pH greater than 6.0 may reduce the tendency for uric acid stone formation. Source: Certain Current Interpretive Data was last revised on 2017 Protein, ur ql Trace Negative [facility] Glucose, ur ql Negative Negative [facility] Ketones, ur Negative Negative [facility] Bilirubin, ur Negative Negative [facility] Blood, ur Trace(A) Negative [facility] Urobilinogen, ur <2.0 <2.0 mg/dL [facility] Nitrite, ur Negative Negative [facility] Leukocyte esterase, ur Negative Negative [facility] UA reflex comment Reflex to microscopic UA will be performed. [facility] Urine, clean voided 05/14/2024 4:50 PM VALET ATTENDANT 05/14/2024 7:18 PM VALET ATTENDANT Khris Arthur MD LAB MICROBIOLOGY - G ENERAL ORDERABLES Final Result Performing Organization Address [facility] de Phone Number [facility] [place] [address] * (ABNORMAL) Urinalysis, microscopic only (05/14/2024 4:50 PM VALET ATTENDANT) WBC, ur 0-5 0 - 5 /HPF RBC, ur 0-2 0 - 2 /HPF [facility] Epithelial cells, squamous, ur 1-5 0 - 5 /HPF [facility] Bacteria, ur Trace(A) [facility] Mucous, ur Present(A) [facility] Culture Reflex Comment Reflex conditions for urine culture (WBC >10) not met. [facility] Urine, clean voided 05/14/2024 4:50 PM VALET ATTENDANT 05/14/2024 7:18 PM VALET ATTENDANT Khris Arthur MD LAB URINE ORDERABLES Final Result Performing Organization Address [facility] Co de Phone Number [facility] Department [place] [address] * XR Ribs Left 2 Views (05/14/2024 4:44 PM VALET ATTENDANT) Anatomical Region Laterality Modality Rib, Chest Left Digital Radiogra phy 05/14/2024 4:54 PM VALET ATTENDANT Impressions 05/14/2024 4:54 PM VALET ATTENDANT 1. No displaced left rib fracture. Electronically signed by: Jamshid Penny 05/14/2024 4:54 PM VALET ATTENDANT EXAMINATION: XR RIBS LEFT 2 VIEWS [...] Bone mineral density was performed on a HoloEclector Discovery Densitometer. Based on machine cross-calibration and [...] by the International Society of Clinical Densitometry. [id number] us Khris Arthur MD IMG DXA PROCEDURES [...] agrees with it. ACC# Date Time Exam [id number] Aug 19, 2016 14:27:00 [facility] [id number] Diag Mamm, inc CAD, unilat L Technologist(s): Carla Harris; ; [id number] Aug 19, 2016 15:39:00 [facility] 05697 Breast US unilateral, ltd L ACC# Date Time Exam [id number] Aug 19, 2016 14:27:00 C 93529 Diag Mamm, inc CAD, unilat L Technologist(s): Carla Harris; ; [id number] Aug 19, 2016 15:39:00 C 70707 Breast US unilateral, ltd L EXAMINATION: LEFT [...] SARABIA M.D. on Aug 19 2016 4:20P [id number] Procedure Note Miscellaneous, Not In File / Provider, MD Tyler - 09/17/2016 ANTHONY SARABIA M.D. JUDY RINCON M.D. FINAL REPORT The radiology attending physician has personally reviewed this study, and has reviewed and/or edited this written report and agrees with it. ACC# Date Time Exam [id number] Aug 19, 2016 14:27:00 [facility] 75291 Diag Mamm, inc CAD, unilat L Technologist(s): Carla Harris; ; [id number] Aug 19, 2016 15:39:00 [facility] 12529 Breast US unilateral, ltd L ACC# Date Time Exam [id number] Aug 19, 2016 14:27:00 C 49527 Diag Mamm, inc CAD, unilat L Technologist(s): Carla Harris; ; [id number] Aug 19, 2016 15:39:00 [facility] 21543 Breast US unilateral, ltd L EXAMINATION: LEFT [...] SARABIA M.D. on Aug 19 2016 4:20P [id number] us Not In File Miscellaneous IMG MAMMO PROCEDURES F inal Result from Last 3 Months or Most Recently Relevant to Health Maintenance Insurance [facility] MEDICARE ADVANTAGE [facility] MEDICARE ADVANTAGE Advance Directives For more information, please contact: [phone] Documents on File Type Date Recorded Patient Cotton Gin Yard Supervisor Expl anation ADVANCE DIRECTIVE 12/23/2021 2:49 PM Power of Director Heart-Medical ADVANCE DIRECTIVE 12/23/2021 2:49 PM Living Will [...] Communication Yunior Marques Daughter Health Care Agent [phone] (Mobile) Jimmie Marques Spouse First Alternate Health Care Agent Care Teams Plumbing And Heating Mechanic Relationship Specialty Start Date End Date Justen Gale MD [address] [address] PCP - General 10/09/17 Liu Jerez MD Consulting Physician Gastroenterology 07/28/17 [place] [address] [facility] [facility] [address] [place] [address] Consulting Physician Pulmonary Disease 08/03/17 Khris Arthur MD [address] [facility] [address] [place] [address] Medical Oncologist/Global Manager Medical Oncology 10/23/17 [place] [address] [facility] [address] [place] [address] Surgeon Orthopedic Surgery 10/23/17 [place] [address] [facility] [address] [place] [address] Consulting Physician Pain Management 10/23/17 [place] [address] [facility] [address] [place] [address] Referring Physician General Surgery 01/26/18 [place] [address] [address] [facility] [address] [place] [address] Consulting Physician Neurology 01/26/18
--- OUTSIDE RECORDS SUMMARY | 2024-07-22 02:25 | XMS_ITS | Clinical Summary ---
Author Organization [facility] Address [address] [place] [address] Phone Care Team Providers Care Solution Analyst Name Role Phone Justen Gale MD Primary Care Provider [phone] Allergies Active Allergy Reactions Criticality Noted Date [...] - 6.0 % 09/29/2017 10:28 AM CDT [employer] [facility] EST. AVG GLUCOSE, A1C 186 mg/dL 09/29/2017 10:28 AM CDT [employer] [facility] Blood Venipuncture / Unknown 09/28/2017 8:41 PM CDT 09/28/2017 8:46 PM CDT Narrative [facility] - 09/29/2017 10:28 AM CDT HGB A1C INTERPRETATION NORMAL: <5.7% PRE-DIABETES: 5.7 - 6.4% DIABETES: 6.5% OR GREATER us Francisco Castaneda MD CHEMISTRY ORDERABLES Final Resul t [facility] [employer] [facility]# [id number] [address] [facility] [place] [address] * (ABNORMAL) LIPID PANEL (09/28/2017 8:41 PM CDT) CHOLESTEROL 174 <200 mg/dL 09/30/2017 2:45 AM CDT [facility] [employer] [facility] TRIGLYCERIDE 109 <150 mg/dL 09/30/2017 2:45 AM CDT [facility] [employer] [facility] HDL 45 40 - 59 mg/dL 09/30/2017 2:45 AM CDT [facility] [employer] [facility] LDL CALCULATED 107(H) <100 mg/dL 09/30/2017 2:45 AM CDT [facility] [employer] [facility] NON-HDL CHOLESTEROL 129 <130 mg/dL 09/30/2017 2:45 AM CDT [facility] [employer] [facility] Blood Venipuncture / Unknown 09/28/2017 8:41 PM CDT 09/28/2017 8:46 PM CDT Narrative [facility] - 09/30/2017 2:45 AM CDT TOTAL CHOLESTEROL [...] Castaneda MD CHEMISTRY ORDERABLES Final Resul t [facility] [employer] [facility] [id number] 5 [facility] [place] [id number] from Last 3 Months or Most Recently Relevant to Health Maintenance Insurance Advance Directives For more information, please contact: [phone] * Full Code (Latest Code Status on File) Date Activated Date Inactivated Comments 09/29/2017 7:45 AM 09/30/2017 9:14 PM * Full Code Date Activated Date Inactivated Comments 09/29/2017 1:25 AM 09/29/2017 7:45 AM Care Teams Solution Analyst Relationship Specialty Start Date End Date Justen Gale MD [address] [facility] [address] [place] [address] PCP - General Cardiovascular Disease 09/14/17
--- OUTSIDE RECORDS SUMMARY | 2024-07-22 02:25 | XMS_ITS | Encounter Summary ---
Author Organization [facility] Address [address] [place] [address] Phone Care Team Providers Care Pharmacovigilance Specialist Name Role Phone Justen Gale MD Primary Care Provider [phone] David Roberts APRN, [employer] Unavailable [phone] Annel Rod MD Unavailable Reason for Visit * Reason Comments Medication Refill Encounter Details Date Type Department Care Team (Late st Contact Info) Description 08/30/2022 Refill [facility] - Family Medicine [facility] [address] [place] [id number] Justen Gale MD [address] [address] Medication Refill Social History Tobacco Use Types [...] 07/05/22 Office Visit Pili Elkins APRN, NETTA [facility] [place] 05/02/22 Office Visit Justen Gale MD [facility] [place] 03/03/22 Office Visit Pili Elkins APRN, NETTA [facility] 01/03/22 Office Visit Dannielle Berg PAC [facility] [place] 12/07/21 Office Visit Pili Elkins APRN, NETTA [facility] 11/09/21 Office Visit Pili Elkins APRN, NET[facility] [place] 10/08/21 Office Visit Angelito Alegria APRN, CNP [facility] [place] 08/30/21 [facility] Show[facility] recent visits within past [...] documented as of this encounter Care Teams Pharmacovigilance Specialist Relationship Specialty Start Date End Date Justen Gale MD [address] [address] PCP - General Family Medicine 10/17/17 David Roberts APRN, [employer] [address] [place] [address] Nurse Practitioner Advanced Practice Nurse 01/31/22 Annel Rod MD [address] [phone] Consulting Physician Endocrinology 07/01/22 documented as of this encounter
--- OUTSIDE RECORDS SUMMARY | 2024-07-22 02:25 | XMS_ITS | Encounter Summary ---
Author Organization [facility] Address [address] [place] [address] Phone Care Team Providers Care Welding Equipment Sales Representative Name Role Phone Justen Gale MD Primary Care Provider [phone] David Roberts APRN, DEGREASING SOLUTION MIXER Unavailable [phone] Annel Rod MD Unavailable Reason for Visit * Reason Comments Medication Refill Encounter Details Date Type Department Care Team (Late st Contact Info) Description 07/06/2023 [facility]ill [facility] - [facility] #2 [place] [id number] Justen Gale MD #[address] [address] Medication Refill Social History Tobacco Use Types [...] AM CDT Medication(s) [facility] and [facility] Medication Refill Standing Order [...] Dept 06/27/23 Office Visit Justen [facility] MD [facility] [place] 01/17/23 Office Visit Catrina Quiñonez MD [place] [...] as of this encounter Care Teams Welding Equipment Sales Representative Relationship Specialty Start Date End Date Justen Gale MD #[address] [address] PCP - General Family Medicine 10/17/17 David Roberts MAKE UP GIRL, DEGREASING SOLUTION MIXER #2 [place] [address] Nurse Practitioner Advanced Practice Nurse 01/31/22 Annel Rod MD #2 [facility] [address] [address] Consulting Physician Endocrinology 07/01/22 documented as of this encounter
--- OUTSIDE RECORDS SUMMARY | 2024-07-22 02:25 | XMS_ITS | Encounter Summary ---
Author Organization [facility] Address [address] [place] [address] Phone Care Team Providers Care Document Processing Specialist Name Role Phone Justen Gale MD Primary Care Provider [phone] David Roberts APRN, [place] Unavailable [phone] Annel Rod MD Unavailable Reason for Visit * Reason Comments Medication Refill Encounter Details Date Type Department Care Team (Late st Contact Info) Description 09/30/2023 Refill [facility] - Endocrinology - [place] #2 [place] [address] Annel Rod MD #[address] [address] Medication Refill Social History Tobacco [...] documented as of this encounter Care Teams Document Processing Specialist Relationship Specialty Start Date End Date Justen Gale MD #2 [facility] [address] [place] [address] PCP - General Family Medicine 10/17/17 David Roberts APRN, NETTA #2 [place] [address] Nurse Practitioner Advanced Practice Nurse 01/31/22 Annel Rod MD #[address] [address] Consulting Physician Endocrinology 07/01/22 documented as of this encounter
--- OUTSIDE RECORDS SUMMARY | 2024-07-22 02:25 | XMS_ITS | Clinical Summary ---
Author Organization [facility] Address [address] [facility] [place] [address] Care Team Providers Care Consumer Services Advisor Name Role Phone Justen Gale MD Primary Care Provider [phone] Source Comments [facility],non-[facility] Affiliates and Associated Physician Practices is amultiple site organization consisting of ambulatory clinics and hospital sitesin [place], [place]. This disclosure is being madepursuant to the Care Everywhere program and may not contain all information available regarding this patient. Last updated 18.[facility] [employer] Allergies Active Allergy Reactions Criticality Noted Date [...] Gluc Sensor (FreeStyle Eileen 2 Sensor Systm) [facility] APPLY 1 SENSOR AND WEAR FOR 14 [...] medical care, and heating? Somewhat hard 05/16/2023 [facility] of Occupat ional Health - Occupational Stress [...] this topic Medical Devices Implanted Type Area Environmental Field Office Manager Device Identifier Shelf Expiration Date Model / Serial / Lot Lead Nrstm 60cm Penta 3mm Pdl 16 Chnl Implanted:Qt y: 1 on 09/16/2021 by Maxi Gregg MD at [facility] Right: Spine Thoracic Advanced Neuromodulation Systems [id number] / / Description:JJ Slnt Dura Duraseal Pg Trilysine Amine 5 Implanted:Qt y: 1 on 09/16/2021 by Maxi Gregg MD at [facility] Right: Spine Thoracic Integra [employer] David [id number] / / Description:JJ Proclaim Plus 5 Implanted:Qt y: 1 on 02/16/2023 by Maxi Gregg MD at [facility] Left: Back Cardenas Spine [id number] 11/07/2024 [id number] / [id number] / Explanted Type Area Environmental Field Office Manager Device Identifier Shelf Expiration Date Model / Serial / Lot Gntr Nrstm [id number] Proclaim Elt Implanted:Qty: 1 on 09/16/2021 by Maxi Gregg MD at [facility] Explanted:Qty: 1 on 10/30/2021 by Maxi Gregg MD at [facility] Right: Spine Thoracic [facility] [...] - 26 mg/dL 07/30/2023 2:31 AM CDT [facility] Creatinine 0.67 0.56 - 0.96 mg/dL 07/30/2023 2:31 AM CDT [facility] Sodium 136 136 - 145 mmol/L 07/30/2023 2:31 AM CDT [facility] Potassium 4.4 3.5 - 4.5 mmol/L 07/30/2023 2:31 AM CDT [facility] Chloride 101 98 - 107 [...] Bravo MD LAB - CHEMISTRY ANGEL SPEARS [facility] Organization Address City/State/ZIP Co de Phone Number [facility] [address] [place] [address], [facility] [phone] * HEPATITIS C AB SCREEN RFLX NAAT [...] Solitario MD LAB - CHEMISTRY ANGEL SPEARS [facility] [address] [place] [address], [place] [phone] * (ABNORMAL) HEMOGLOBIN A1C (12/25/2022 3:56 AM CDT) Hemoglobin A1c 8.6(H) <=5.6 % 12/25/2022 2:47 PM CDT [facility] Estimated Average Glucose 200 mg/dL 12/25/2022 2:47 PM CDT [facility] Comment: HbA1c Interpretation: Normal : < 5.7% Pre-diabetes: 5.7-6.4% Diabetes: Equal to or greater than 6.5% Test results diagnostic of diabetes should be repeated for confirmation. Treatment target values recommended by ADA and other clinical organizations should be used to evaluate metabolic control in patients. Reference: [place] Diabetes Association, Standards of Care in Diabetes [...] Rodriguez MD LAB - CHEMISTR Y ORDERABLES [facility] [address] [place] [address], [place] [phone] from Last 3 Months or Most Recently [...] 3:37 AM 03/23/2023 7:14 PM Care Teams Consumer Services Advisor Relationship Specialty Start Date End Date Justen Gale MD PCP - General 07/05/21
--- OUTSIDE RECORDS SUMMARY | 2024-07-22 02:25 | XMS_ITS | Encounter Summary ---
Author Organization [facility] Address [address] [place] [address] Phone Care Team Providers Care Local Flatbed Driver Name Role Phone Lavonne Hathaway MD Primary Care Provider [phone] Liu Jerez MD Unavailable [phone] Albert Corbin MD Unavailable [phone] Justen Gale MD Primary Care Provider [phone] Lavonne Hathaway MD Primary Care Provider + [phone] Justen Gale MD Primary Care Provider [phone] Khris Arthur MD Unavailable + [phone] Ko Melendez MD Unavailable [phone] John Paul Moyer MD Unavailable Annel Rod MD Unavailable Anali MARSHALL MD, Carlos M. Unavailable [phone] Encounter Details Date Type Department Care Team ([facility] Contact Info) Description 05/15/2017 Orders Only [facility] Scanning, Provider Social History Tobacco Use Types Packs/Day Years Used Date Smoking Tobacco: Former Alcohol Use Standard Drinks/Week Comments No 0 (1 standard drink = 0.6 oz pur e alcohol) Comments Unknown Sex and Gender Information Value Date Recorded Sex Assigned at Not on file Legal Sex Female 12:24 AM RESEARCH KENNEL SUPERVISOR Gender Identity Not on file Sexual [...] COVID: Recovered 02/10/2022 02/10/2022 06/10/2022 3:05 AM RESEARCH KENNEL SUPERVISOR Exposure, COVID-19 Comment:Added automatically based on COVID19 lab answers indicating exposure risk 02/11/2022 02/11/2022 02/15/2022 9:06 AM C DT COVID: Suspected 05/14/2022 05/14/2022 05/14/2022 10:41 AM RESEARCH KENNEL SUPERVISOR COVID: Suspected 06/07/2022 06/07/2022 06/07/2022 12:28 PM RESEARCH KENNEL SUPERVISOR COVID: Suspected 06/21/2022 06/21/2022 06/21/2022 2:12 AM RESEARCH KENNEL SUPERVISOR COVID: Suspected 10/05/2022 10/05/2022 10/05/2022 7:40 PM CDT COVID: Suspected 01/04/2024 01/04/2024 01/04/2024 10:30 PM CDT COVID: Suspected 02/14/2024 02/14/2024 02/15/2024 12:36 AM CDT COVID: Suspected 07/01/2024 07/01/2024 07/01/2024 2:53 PM CDT COVID: Suspected 07/01/2024 07/01/2024 07/02/2024 3:05 AM CDT documented as of this encounter Care Teams Local Flatbed Driver Relationship Specialty Start Date End Date Lavonne Hathaway MD [address] [place] [address] [place] [address] PCP - General 08/16/16 08/17/17 Jutsen Gale MD [address] [facility] [address] [address] PCP - General 08/18/17 08/22/17 Lavonne Hathaway MD [address] [place] [address] [place] [address] PCP - General Family Medicine 08/23/17 10/08/17 Justen Gale MD 2 [facility] [place] [facility] [address] [address] PCP - General 10/09/17 Liu Jerez MD [address] [place] [address] [place] [address] Consulting Physician Gastroenterology 07/28/17 [place] [address] [facility] [address] [place] [address] Consulting Physician Pulmonary Disease 08/03/17 Khris Arthur MD [address] [facility] [address] [place] [address] Medical Oncologist/Snow Technician Medical Oncology 10/23/17 [place] [address] [facility] [address] [place] [address] Surgeon Orthopedic Surgery 10/23/17 [place] [address] [facility] [address] [place] [address] Consulting Physician Pain Management 10/23/17 [place] [address] [facility] [address] [place] [address] Referring Physician General Surgery 01/26/18 [place] [address] [facility] [address] [place] [address] Consulting Physician Neurology 01/26/18 documented as of this encounter
--- OUTSIDE RECORDS SUMMARY | 2024-07-22 02:25 | XMS_ITS | CONTINUITY OF CARE DOCUMENT ---
Author Name ayesha, ayesha Address Unknown Organization [facility] Address [address] [facility] [address] [place] [address] Phone [phone] Care Team Providers Care Donkey Ride Operator Name Role Phone Yamilet DURÁN, Maico Unavailable [phone] ALANIS DURÁN, BRIDGETT Unavailable ALLISON DURÁN, CLARISSE Unavailable [phone] PROBLEMS Condition Status Date Provider Notes Shortness of breath active Ivory Rodriguez Palpitations active Radha Seals INSURANCE PROVIDERS Payer name Policy type / Coverage type [place] UHC MEDICARE COMPLETE HMO Other [id number] [facility] Medicaid 2 [id number] HISTORY OF PROCEDURES Procedure Date Procedure Name Provider Procedure Notes S tatus Stress EKG Carmine Silverio MD complet ed Regadenoson, 4 units Sergey Saldana MD completed Cardiolite, 2 units Sergey Saldana MD completed SPECT Images Carmine Silverio MD compl eted Holter, 24 or 48 Maico Woodard MD co mpleted
--- OUTSIDE RECORDS SUMMARY | 2024-07-22 02:25 | XMS_ITS | Encounter Summary ---
Author Organization [facility] Address [address] [place] [address] Phone Care Team Providers Care Asphalt Heater Tender Name Role Phone Justen Gale MD Primary Care Provider [phone] David Roberts APRN, ECONOMIC DEVELOPMENT MANAGER Unavailable [phone] Annel Rod MD Unavailable Reason for Visit * Reason Comments Medication Refill Encounter Details Date Type Department Care Team (Late st Contact Info) Description 03/05/2023 Refill [facility] - Family Medicine [facility] #2 [place] [address] Pili Elkins APRN, ECONOMIC DEVELOPMENT MANAGER #[address] [address] Medication Refill Social History Tobacco [...] on 10/19/2022 by Justen Gale MD O SYSTEM REPAIRER documented in this encounter Plan of Treatment Not on file documented as of this encounter Visit Diagnoses Diagnosis Essential hypertension Unspecified essential hypertension documented in this encounter Additional Health Concerns Assessment Noted Time PHQ-9 Depression Total Score: 8 01/18/20 23 2:24 PM CDT documented as of this encounter Care Teams Asphalt Heater Tender Relationship Specialty Start Date End Date Justen Gale MD #[address] [address] PCP - General Family Medicine 10/17/17 David Roberts APRN, CNP #2 [place] [address] Nurse Practitioner Advanced Practice Nurse 01/31/22 Annel Rod MD #[address] [address] Consulting Physician Endocrinology 07/01/22 documented as of this encounter
--- OUTSIDE RECORDS SUMMARY | 2024-07-22 02:25 | XMS_ITS | Encounter Summary ---
Author Organization [facility] Address [address] [place] [address] Phone Care Team Providers Care Salt Operator Name Role Phone Justen Gale MD Primary Care Provider [phone] David Roberts APRN, BREAKER TENDER Unavailable [phone] Annel Rod MD Unavailable Reason for Visit * Reason Comments Medication Refill Encounter Details Date Type Department Care Team (Late st Contact Info) Description 02/17/2021 Refill [facility] - Family Medicine [facility] #2 [place] [address] Justen Gale MD #[address] [address] Medication Refill Social History Tobacco Use Types [...] 06/05/20 Office Visit Pili Elkins APRN, NETTA [facility] [place] Showing recent visits within past 365 days and meeting all other requirements Future Appointments Date Type Provider Dept 03/02/21 Appointment Vince Hermosillo MD [facility] Showing future appointments within next 90 days and meeting all other requirements documented in this encounter Plan of Treatment Not on file documented as of this encounter Visit Diagnoses Not on filedocumented in this encounter Additional Health Concerns Assessment Noted Time PHQ-9 Depression Total Score: 0 07/21/19 21 3:00 PM CDT documented as of this encounter Care Teams Salt Operator Relationship Specialty Start Date End Date Justen Gale MD #2 [facility] [address] [place] [address] PCP - General Family Medicine 10/17/17 David Roberts APRN, NETTA #2 [place] [address] Nurse Practitioner Advanced Practice Nurse 01/31/22 Annel Rod MD #2 [facility] [address] [place] [address] Consulting Physician Endocrinology 07/01/22 documented as of this encounter
--- OUTSIDE RECORDS SUMMARY | 2024-07-22 02:25 | XMS_ITS | Clinical Summary ---
Author Organization [facility] Address Count includes the [facility] [place] [address] Care Team Providers Care Hand Deicer Element Winder Name Role Phone Meena Bansal MD Unavailable [phone] Justen Gale MD Primary Care Provider [phone] Allergies Active Allergy Reactions Criticality Noted Date [...] reflux disease 09/05/2020 Malignant tumor of breast ([facility]/HCC [facility]) 08/22 Knee pain 09/05/2020 Other chronic [...] 03/18/2018 Assessment & Plan (03/18/2018 2:55 AM IN HOUSE CRA): Acute, patient reported as epigastric pain however may be atypical presentation. Troponins negative x2. Also in differential is GERD, PUD - Admit to observation -Follow-up troponins -Monitor vitals -N.p.o. at midnight - Stress echo in a.m. - Consider cardiology consult based on results of stress test -Begin Protonix Epigastric pain 03/18/2018 Assessment & Plan (03/18/2018 5:39 AM IN HOUSE CRA): Acute, non radiating, worsens with lying down, [...] Speech impairment 01/30/2018 CVA (cerebral vascular accident) ([facility] HHS/ C) 01/24/2018 Neck pain on right side 12/01/2017 Anxiety and depression 11/12/2017 Chronic anticoagulation 11/09/2017 Constipation 11/09/2017 Uncontrolled type 2 diabetes mellitus with hyperglycemia, with long-term current use of insulin ([facility]) 11/06/2017 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 -continue exemestane Acute deep vein thrombosis ( DVT) of proximal vein of right lower extremity ([facility]) 10/17/2017 Dysuria 10/17/2017 Hyperthyroidism 10/17/2017 Cancer of overlapping sites of left female breast ([facility]) 10/13/2017 Syncope 09/29/2017 High blood pressure 08/22/2017 Overview (09/05/2020): Last Assessment & Plan: On lisinopril Last Assessment & Plan: On lisinopril Assessment & Plan (08/30/2018 9:57 PM CDT): Chronic. Controlled. -continue home medications Assessment & Plan (03/18/2018 2:51 AM IN HOUSE CRA): Chronic, BPs currently 127/78 - To new home meds Morbid obesity with BMI of 50.0-59.9, adult 04/2017 Sepsis ([facility]) 08/22/2017 Type 2 diabetes mellitus ([facility]) 08/22 Overview (09/05/2020): Last Assessment & Plan: Hold janument. Start on SSI and accucheks Assessment & Plan (08/30/2018 10:01 PM CDT): Chronic. Controlled. -continue home insulin regimen of lantus 50 units q am -lispro 20 units with breakfast and lunch. 22 units with dinner. Assessment & Plan (03/18/2018 2:53 AM IN HOUSE CRA): Chronic, patient reports medical compliance with 50 units of Lantus daily and 15 units of Humalog before meals. No recent HbA1c - Monitor POC glucose -[place] home regimen - Consider sliding scale insulin -Follow-up HbA1c Bronchitis 08/20/2017 LUL (obstructive sleep apnea) 08/01/2017 Assessment & Plan (03/18/2018 2:54 AM IN HOUSE CRA): Chronic, on CPAP at home - Continue home CPAP History of DVT (deep vein thrombosis) 08/01/2017 Assessment & Plan (03/18/2018 2:54 AM IN HOUSE CRA): Chronic - Continue home Xarelto Chest pressure 08/01/2017 Diet-controlled diabetes mellitus ([facility] HHS/H CC) 08/01/2017 History of pulmonary embolism 08/01/2017 Hyponatremia 08/01/2017 Positive blood culture 08/01/2017 Acute pharyngitis 07/27/2017 Generalized weakness 07/27/2017 Nausea and vomiting 07/26/2017 Overview (09/05/2020): Overview: Overview: Added automatically from request for surgery [id number] Overview: Added automatically from request for surgery [id number] Added automatically from request for surgery [id number] Neuropathy 07/05/2017 History of breast cancer 02/06/2017 Pulmonary embolism ([facility]) 08/09/2016 Overview (09/05/2020): Last Assessment & [...] syndrome Assessment & Plan (03/18/2018 2:54 AM IN HOUSE CRA): Chronic -Continue home ropinirole Pain of lower [...] drink = 0.6 oz pur e alcohol) [facility] Utilities Answer Date Recorded In the past 12 months has Fever gas, oil, or water [employer] threatened to shut off services in your [...] any time in the past 12 [facility], were you homeless or living in a assisted (including now)? No 10/13/2023 Comments No Sex and Gender Information Value Date Recorded Sex Assigned at Female 09/06/2020 12:50 AM CDT Legal Sex Female 10:47 AM CDT Gender Identity Female 09/06/2020 12:50 AM CDT Sexual Orientation Straight 03/18/2018 3: 01 AM IN HOUSE CRA Last Filed Vital Signs Vital Sign Reading [...] 8.0(H) <5.7 % 10/14/2023 5:50 AM CDT [facility] Comment: ADA GUIDELINES 2010 5.7 TO 6.4% INCREASED RISK OF DIABETES > OR = 6.5% CONSISTENT WITH DIABETES ESTIMATED AVG GLUCOSE 183 mg/dL 10/14/2023 5:50 AM CDT [facility] 10/14/2023 3:40 AM CDT us Peggy Bland MD LABORATORY Final Result [facility] [address] [place] [address], * LIPID PANEL (10/14/2023 3:40 AM CDT) CHOLESTEROL 164 <200 MG/DL 10/14/2023 4:31 AM CDT [facility] TRIGLYCERIDES 114 <150 MG/DL 10/14/2023 4:31 AM CDT [facility] HDL 46 >40.0 MG/DL 10/14/2023 4:31 AM CDT [facility] LDL (CALCULATED) 95 <100 MG/DL 10/14/19 4:31 AM CDT [facility] NON HDL CHOLESTEROL 118 <130 MG/DL 10/13 4:31 AM CDT [facility] CHOL/HDL RATIO 3.6 0.0 - 4.5 10/14/2023 4:31 AM CDT [facility] VLDL CALCULATION 23 5 - 55 MG/DL 10/14/2023 4:31 AM T [facility] LIPID INTERPRETATION 10/14/2023 4:31 AM T [facility] Comment: NIH CONCENSUS REPORT RECOMMENDATIONS: ADULT CHILD LOW RISK: CHOLESTEROL <200 <170 TRIGLYCERIDE <150 --- HDL >=60 --- LDL <100 <110 BORDERLINE: CHOLESTEROL 200-239 170-199 TRIGLYCERIDE 150-199 --- HDL 40-59 --- LDL 100-159 110-129 HIGH RISK: CHOLESTEROL >=240 >=200 TRIGLYCERIDE >=200 --- HDL <40 --- LDL >=160 >=130 10/14/2023 3:40 AM CDT Peggy Bland MD LABORATORY Final Result [facility] [address] [place] [address], from Last 3 Months or Most Recently Relevant to Health Maintenance Insurance [facility] MEDICAID MEDICAID [facility] Advance Directives * Full Code (Latest [...] 2:42 AM 03/18/2018 4:50 PM Care Teams Hand Deicer Element Winder Relationship Specialty Start Date End Date Justen Gale MD [address] [place] [address] [place] [address] PCP - General FAMILY PRACTICE 08/20/17 Meena Bansal MD [address] [place] [address] [place], [place] [address] [employer] CARDIOVASCULAR DISEASE 04/24/16
--- OUTSIDE RECORDS SUMMARY | 2024-07-22 02:25 | XMS_ITS | Encounter Summary ---
Author Organization [facility] Address [address] [place] [address] Phone Care Team Providers Care Airplane Rigger Name Role Phone Justen Gale MD Primary Care Provider [phone] David Roberts APRN, ELECTRONIC DEVICE MONITOR Unavailable [phone] Annel Rod MD Unavailable Reason for Visit * Reason Comments Medication Refill Encounter Details Date Type Department Care Team (Late st Contact Info) Description 02/07/2023 Refill [facility] Family [facility] #2 [place] [address] Catrina Quiñonez MD #2 [place] [address] Medication Refill Social History Tobacco Use Types [...] Mcgee 05/02/22 Office Visit Justen [facility] 03/03/22 Office Visit Pili Elkins APRN, NETTA [facility] Showing recent visits within past 365 [...] documented as of this encounter Care Teams Airplane Rigger Relationship Specialty Start Date End Date Justen Gale MD #[address] [address] PCP - General Family Medicine 10/17/17 David Roberts APRN, ELECTRONIC DEVICE MONITOR #[address] [place] [address] Nurse Practitioner Advanced Practice Nurse 01/31/22 Annel Rod MD #[address] [address] Consulting Physician Endocrinology 07/01/22 documented as of this encounter
--- OUTSIDE RECORDS SUMMARY | 2024-07-22 02:25 | XMS_ITS ---
Author Organization [facility] Address [address] [place] [address] Care Team Providers Care Towing Pilot Name Role Phone Justen Gale MD Primary Care Provider [phone] Active Problems Problem Noted Date Diagnosed Date [...] treatments are documented for this patient in [facility]. Treatments may have been administered in another system. Lifetime Dose Tracking * Chemical Lifetime Dose Automatic Entry Manual Entr y Dose Length Product 1,838 mGy-cm 1,838 mGy-cm 0 mGy-cm Resolved Problems Problem Noted Date Diagnosed Date Resolved Date Rash 03/21/2023 04/18/2023
--- OUTSIDE RECORDS SUMMARY | 2024-07-22 02:25 | XMS_ITS | Encounter Summary ---
Author Organization [facility] Address [address] [place] [address] Phone Care Team Providers Care Web Ui Developer Name Role Phone Justen Gale MD Primary Care Provider [phone] David Roberts APRN, LINING BRUSHER Unavailable [phone] Annel Rod MD Unavailable Reason for Visit * Reason Onset Date Comments Medication Refill 08/06/2020 Encounter Details Date Type Department Care Team (Late st Contact Info) Description 08/06/2020 Refill [facility] [address] [place] [id number] Justen Gale MD [address] [address] Medication Refill Social History Tobacco Use Types [...] Outpatient Visits 2 weeks ago CRP elevated [facility] P[facility] Mueller APN, LINING BRUSHER 2 months ago Increased urinary frequency [facility] Pili Mueller STEAM PRESSER, LINING BRUSHER 5 months ago Urinary frequency [facility] Pili Mueller STEAM PRESSER, LINING BRUSHER 8 months ago Type 2 diabetes mellitus with diabetic polyneuropathy, with long- term current use of insulin (HCC) [facility] Pili Mueller STEAM PRESSER, LINING BRUSHER 9 months ago [facility] Ol[facility]o MD Upcoming Appointments Future Appointments In 6 days Pili Elkins APN, LINING BRUSHER [facility] Elias Mcgee [facility] - Recent and Past Visits Recent Visits Date Type Provider Dept 07/20/20 Office Visit Pili Elkins APN, LINING BRUSHER [facility] 06/05/20 Office Visit Pili Elkins APN, LINING BRUSHER [facility] 02/17/20 Office Visit Pili Elkins APN, CNP [facility] 12/03/19 Office Visit Pili Elkins APN, CNP [facility] 11/05/19 Telemedicine Justen Gale MD [facility] 07/25/19 Telemedicine [facility] Show[facility] recent visits within past 460 days [...] as of this encounter Care Teams Web Ui Developer Relationship Specialty Start Date End Date Just[facility] Gale MD [facility] [address] [address] PCP - General Family Medicine 10/17/17 David Roberts APRN, CNP [address] [place] [address] Nurse Practitioner Advanced Practice Nurse 01/31/22 Annel Rod MD #[address] [address] Consulting Physician Endocrinology 07/01/22 documented as of this encounter
--- OUTSIDE RECORDS SUMMARY | 2024-07-22 02:25 | XMS_ITS | Encounter Summary ---
Author Organization [facility] Address [address] [place] [address] Phone Care Team Providers Care Paste Up Artist Apprentice Name Role Phone Justen Gale MD Primary Care Provider [phone] David Roberts APRN, COPY TECHNICIAN Unavailable [phone] Annel Rod MD Unavailable Reason for Visit * Reason Comments Medication Refill Encounter Details Date Type Department Care Team (Late st Contact Info) Description 03/13/2021 Refill [facility] [address] [place] [address] Justen Gale MD [address] [address] Medication Refill Social History Tobacco Use Types [...] COVID-19? No / Unsure 03/02/2021 5:05 PM NATURE PHOTOGRAPHER documented as of this encounter Plan of Treatment Not on file documented as of this encounter Visit Diagnoses Not on filedocumented in this encounter Additional Health Concerns Assessment Noted Time PHQ-9 Depression Total Score: 0 07/21/19 21 3:00 PM CDT documented as of this encounter Care Teams Paste Up Artist Apprentice Relationship Specialty Start Date End Date Justen Gale MD #2 [facility] [address] [place] [address] PCP - General Family Medicine 10/17/17 David Roberts APRN, NETTA [address] [place] [address] Nurse Practitioner Advanced Practice Nurse 01/31/22 Annel Rod MD #2 [facility] [address] [place] [address] Consulting Physician Endocrinology 07/01/22 documented as of this encounter
--- OUTSIDE RECORDS SUMMARY | 2024-07-22 02:25 | XMS_ITS | Clinical Summary ---
Author Organization [facility] Address [address] [place] [id number] Care Team Providers Care Product Manager Name Role Phone Liu Jerez MD Unavailable Ablert Corbin MD Unavailable [phone] Justen Gale MD Primary Care Provider Khris Arthur MD Unavailable [phone] Ko Melendez MD Unavailable John Paul Moyer [...] 05/22/2024 Assessment & Plan (05/26/2024 10:08 AM LINE CONSTRUCTION SUPERVISOR): Presenting with urinary symptoms of right flank [...] 05/22/2024 Assessment & Plan (05/25/2024 7:52 AM LINE CONSTRUCTION SUPERVISOR): Hx of breast cancer c/b DVT/bilateral Pes [...] 05/22/2024 Assessment & Plan (05/22/2024 1:14 PM LINE CONSTRUCTION SUPERVISOR): -long-standing chronic back pain -CT L spine [...] 09/12/2021 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) 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) 10/23/2017 Assessment & Plan (10/23/2017 [...] 10/13/2017 Assessment & Plan (05/22/2024 12:29 PM LINE CONSTRUCTION SUPERVISOR): -Hx stage II, ER positive, HER2 negative [...] 08/01/2017 Assessment & Plan (05/22/2024 12:33 PM LINE CONSTRUCTION SUPERVISOR): -Hx LUL -Hospital provided CPAP ordered History of DVT (deep vein thrombosis) 08/01/2017 History of pulmonary embolism 08/01/2017 Generalized weakness 07/27/2017 Dyspnea 07/27/2017 Unintentional weight loss 07/27/2017 Acute cystitis without hematuria 07/27/2017 Nausea and vomiting 07/26/2017 Overview (07/28/2017): Added automatically from request for surgery [id number] Pulmonary embolism 08/09/2016 Assessment & Plan (10/23/2017 2:05 AM CDT): On Rivaroxaban Lymphedema of left upper extremity 08/09/2016 Assessment & Plan (05/25/2024 7:53 AM LINE CONSTRUCTION SUPERVISOR): S/p L axillary lymph node dissection 2014, [...] syndrome Assessment & Plan (05/22/2024 11:18 AM LINE CONSTRUCTION SUPERVISOR): -continue home Requip 5mg nightly Pain of lower extremity 03/12/2013 Overview (07/29/2016): Leg pain Essential hypertension Assessment & Plan (05/23/2024 10:42 AM LINE CONSTRUCTION SUPERVISOR): -Chart history of HTN but not on meds -BP elevated on admission, likely some pain contributing -Monitor closely once pain under adequate control, discussed following up with PCP for this Chronic anticoagulation Restless leg syndrome 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 Type 2 diabetes mellitus without complication Assessment & Plan (05/24/2024 1:39 PM LINE CONSTRUCTION SUPERVISOR): -Last Ha1c 8.4 in 2023, repeat 8.7 [...] CDT - 07/01/2024 10:18 PM CDT Emergency [facility] Emergency Department [facility] [place], [place] [id number] Myalgia (Primary Dx); Viral syndrome Discharge Disposition: Discharge to home or self care 05/30/2024 Orders Only [facility] [address] [facility] Floor 8 [place] [address] Radha Mcgrath RN Lymphedema of left arm (Primary Dx); Malignant neoplasm of upper-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, unspecified estrogen receptor status (HCC); Malignant neoplasm of overlapping sites of left female breast, unspecified estrogen receptor status (HCC); Malignant neoplasm of female breast, unspecified estrogen receptor status, unspecified laterality, unspecified site of breast (HCC) 05/24/2024 Telephone [facility] [address] [place] [address] Radha Warner RN 05/23/2024 8:10 AM LINE CONSTRUCTION SUPERVISOR Ancillary Procedure [facility] Lab IP [address] [facility] [address] [place] [address] 05/21/2024 9:12 PM LINE CONSTRUCTION SUPERVISOR - 05/26/2024 6:45 PM LINE CONSTRUCTION SUPERVISOR Hospital Encounter [facility] [address] [place] [address] Jimmie Zavala MD Liss, MD Ra Parnell, MD Sebastian Claros Rehan, MD Left arm pain (Primary Dx); Left leg pain; Shortness of breath; Urinary tract infection without hematuria, site unspecified; Allergy to drug Discharge Disposition: Discharge to home or self care 05/21/2024 12:58 PM LINE CONSTRUCTION SUPERVISOR - 05/21/2024 11:59 PM LINE CONSTRUCTION SUPERVISOR Hospital Encounter [facility] [address] [place] [address] Discharge Disposition: Discharge to home or self care 05/21/2024 11:00 AM LINE CONSTRUCTION SUPERVISOR - 05/21/2024 11:59 PM LINE CONSTRUCTION SUPERVISOR Hospital Encounter [facility] - Breast Imaging [facility] Floor [address] [place] [address] History of breast cancer; Axillary pain, left Discharge Disposition: Discharge to home or self care 05/16/2024 Telephone [facility] [address] [place] [address] 8 [place] [phone] Jeanine Ba, Cordelia 05/16/2024 Orders Only [facility] [address] [place] [address] 8 [place] [phone] Radha Mcgrath RN History of breast cancer (Primary Dx); Axillary pain, left 05/16/2024 Orders Only [facility] [address] [place] [address] 8 [place] [phone] Khris Arthur MD Swelling of left upper extremity (Primary Dx); Swelling of left lower extremity 05/14/2024 4:45 PM LINE CONSTRUCTION SUPERVISOR Lab [facility] - Lab Collection [facility] Floor [address] [place] [address] Malignant neoplasm of upper-inner quadrant of left breast in female, estrogen receptor positive (HCC) 05/14/2024 4:36 PM LINE CONSTRUCTION SUPERVISOR - 05/14/2024 11:59 PM LINE CONSTRUCTION SUPERVISOR Hospital Encounter [facility] - Diagnostic Imaging [address] [facility] [address] [place] [address] Malignant neoplasm of upper-inner quadrant of left breast in female, estrogen receptor positive (HCC) Discharge Disposition: Discharge to home or self care 05/14/2024 4:00 PM LINE CONSTRUCTION SUPERVISOR Lab [facility] Lab [address] [facility] Floor [address] [place] [address] Malignant neoplasm of upper-inner quadrant of left breast in female, estrogen receptor positive (HCC) 05/14/2024 3:30 PM LINE CONSTRUCTION SUPERVISOR Office Visit [facility] [address] [facility] Floor [address] [place] [address] Khris Arthur MD Swelling of right lower extremity (Primary Dx); Malignant neoplasm of upper-inner quadrant of left breast in female, estrogen receptor positive (HCC); Swelling of right upper extremity; Swelling of left upper extremity; Swelling of left lower extremity from Last 3 Months Immunizations Immunization Administration [...] drink = 0.6 oz pur e alcohol) [employer] Answer Date Recorded In the past 12 months has [employer], gas, oil, or water [employer] threatened to shut off services in your [...] you attend chur ch or islam services? More than 4 times per year [...] slept in a detention (including now)? No 08/15/2023 Housing Stability Vital Sign Answer [place] e Recorded In the last 12 months, was t here a time when you were not able to pay the mortgage or rent on time? No 05/24/2024 In the past 12 months, how m any times have you moved where you were living? 0 05/24/2024 At any time in the past 12 m [facility], were you homeless or living in a detention (including now)? No 05/24/2024 Personal Safety Answer Date Recorded Have you ever been in or are you currently in a harmful physical or emotional relationship or is someone making you feel afraid or unsafe? Denies 07/01/2024 Comments No Sex and Gender Information Value Date Recorded Sex Assigned at Not on file Legal Sex Female 12:24 AM LINE CONSTRUCTION SUPERVISOR Gender Identity Not on file Sexual [...] 2023 , 01/03/2022, 05/04/2021, Additional history exists Osteoporosis Screening-Bone [...] GLUCOSE DEVICE Routine 05/26/2024 4 :27 PM LINE CONSTRUCTION SUPERVISOR POCT GLUCOSE DEVICE Routine 05/26/2024 1 1:38 AM LINE CONSTRUCTION SUPERVISOR POCT GLUCOSE DEVICE Routine 05/26/2024 8 :12 AM LINE CONSTRUCTION SUPERVISOR EGFR Routine 05/26/2024 12:05 AM LINE CONSTRUCTION SUPERVISOR DIFFERENTIAL AUTO Routine 05/26/2024 12: 05 AM LINE CONSTRUCTION SUPERVISOR PHOSPHORUS Routine 05/26/2024 12:05 AM LINE CONSTRUCTION SUPERVISOR COMPREHENSIVE METABOLIC PANEL Routine 05/26/2024 12:05 AM LINE CONSTRUCTION SUPERVISOR MAGNESIUM Routine 05/26/2024 12:05 AM LINE CONSTRUCTION SUPERVISOR CBC WITH AUTO DIFFERENTIAL Routine 05/26/2024 12:05 AM LINE CONSTRUCTION SUPERVISOR POCT GLUCOSE DEVICE Routine 05/25/2024 7 :44 PM LINE CONSTRUCTION SUPERVISOR POCT GLUCOSE DEVICE Routine 05/25/2024 5 :24 PM LINE CONSTRUCTION SUPERVISOR POCT GLUCOSE DEVICE Routine 05/25/2024 1 1:37 AM LINE CONSTRUCTION SUPERVISOR POCT GLUCOSE DEVICE Routine 05/25/2024 7 :27 AM LINE CONSTRUCTION SUPERVISOR EGFR Routine 05/25/2024 12:20 AM LINE CONSTRUCTION SUPERVISOR DIFFERENTIAL AUTO Routine 05/25/2024 12: 20 AM LINE CONSTRUCTION SUPERVISOR PHOSPHORUS Routine 05/25/2024 12:20 AM LINE CONSTRUCTION SUPERVISOR COMPREHENSIVE METABOLIC PANEL Routine 05/25/2024 12:20 AM LINE CONSTRUCTION SUPERVISOR MAGNESIUM Routine 05/25/2024 12:20 AM LINE CONSTRUCTION SUPERVISOR CBC WITH AUTO DIFFERENTIAL Routine 05/25/2024 12:20 AM LINE CONSTRUCTION SUPERVISOR POCT GLUCOSE DEVICE Routine 05/24/2024 8 :13 PM LINE CONSTRUCTION SUPERVISOR POCT GLUCOSE DEVICE Routine 05/24/2024 5 :17 PM LINE CONSTRUCTION SUPERVISOR POCT GLUCOSE DEVICE Routine 05/24/2024 1 2:49 PM LINE CONSTRUCTION SUPERVISOR POCT GLUCOSE DEVICE Routine 05/24/2024 9 :22 AM LINE CONSTRUCTION SUPERVISOR HERPES SIMPLEX VIRUS (HSV) PCR Routine 05/24/2024 8:47 AM LINE CONSTRUCTION SUPERVISOR POCT GLUCOSE DEVICE Routine 05/24/2024 8 :22 AM LINE CONSTRUCTION SUPERVISOR EGFR Routine 05/24/2024 12:29 AM LINE CONSTRUCTION SUPERVISOR DIFFERENTIAL AUTO Routine 05/24/2024 12: 29 AM LINE CONSTRUCTION SUPERVISOR PHOSPHORUS Routine 05/24/2024 12:29 AM LINE CONSTRUCTION SUPERVISOR COMPREHENSIVE METABOLIC PANEL Routine 05/24/2024 12:29 AM LINE CONSTRUCTION SUPERVISOR MAGNESIUM Routine 05/24/2024 12:29 AM LINE CONSTRUCTION SUPERVISOR CBC WITH AUTO DIFFERENTIAL Routine 05/24/2024 12:29 AM LINE CONSTRUCTION SUPERVISOR POCT GLUCOSE DEVICE Routine 05/23/2024 8 :16 PM LINE CONSTRUCTION SUPERVISOR POCT GLUCOSE DEVICE Routine 05/23/2024 6 :14 PM LINE CONSTRUCTION SUPERVISOR POCT GLUCOSE DEVICE Routine 05/23/2024 1 2:17 PM LINE CONSTRUCTION SUPERVISOR US VEIN DUPLEX LOWER EXTREMITY BILATERAL COMPLETE IP Routine 05/23/2024 11:45 AM LINE CONSTRUCTION SUPERVISOR POCT GLUCOSE DEVICE Routine 05/23/2024 8 :16 AM LINE CONSTRUCTION SUPERVISOR DIFFERENTIAL AUTO Routine 05/23/2024 2:3 0 AM LINE CONSTRUCTION SUPERVISOR CBC WITH AUTO DIFFERENTIAL Routine 05/23/2024 2:30 AM LINE CONSTRUCTION SUPERVISOR EGFR Routine 05/23/2024 12:42 AM LINE CONSTRUCTION SUPERVISOR LACTATE DEHYDROGENASE Routine 05/23/2024 12:42 AM LINE CONSTRUCTION SUPERVISOR URIC ACID Routine 05/23/2024 12:42 AM LINE CONSTRUCTION SUPERVISOR TYPE AND SCREEN Timed 05/23/2024 12:42 AM LINE CONSTRUCTION SUPERVISOR PHOSPHORUS Routine 05/23/2024 12:42 AM LINE CONSTRUCTION SUPERVISOR COMPREHENSIVE METABOLIC PANEL Routine 05/23/2024 12:42 AM LINE CONSTRUCTION SUPERVISOR MAGNESIUM Routine 05/23/2024 12:42 AM LINE CONSTRUCTION SUPERVISOR POCT GLUCOSE DEVICE Routine 05/22/2024 8 :56 PM LINE CONSTRUCTION SUPERVISOR POCT GLUCOSE DEVICE Routine 05/22/2024 6 :09 PM LINE CONSTRUCTION SUPERVISOR POCT GLUCOSE DEVICE Routine 05/22/2024 4 :26 PM LINE CONSTRUCTION SUPERVISOR CT ABDOMEN PELVIS W CONTRAST ED 05/22/2024 2:32 PM LINE CONSTRUCTION SUPERVISOR POCT GLUCOSE DEVICE Routine 05/22/2024 1 2:58 PM LINE CONSTRUCTION SUPERVISOR POCT GLUCOSE DEVICE Routine 05/22/2024 9 :29 AM LINE CONSTRUCTION SUPERVISOR POCT GLUCOSE DEVICE Routine 05/22/2024 6 :54 AM LINE CONSTRUCTION SUPERVISOR CT CHEST PE W CONTRAST ED 05/22/2024 1:31 AM LINE CONSTRUCTION SUPERVISOR D-DIMER, QUANTITATIVE Routine 05/22/2024 12:24 AM LINE CONSTRUCTION SUPERVISOR URINALYSIS, MICROSCOPIC ONLY Routine 05/21/2024 11:09 PM LINE CONSTRUCTION SUPERVISOR TROPONIN I HIGH-SENSITIVITY 2-HOUR Timed 05/21/2024 11:09 PM LINE CONSTRUCTION SUPERVISOR URINE CULTURE Routine 05/21/2024 11:09 PM LINE CONSTRUCTION SUPERVISOR RESPIRATORY PATHOGEN PANEL Routine 05/21/2024 11:09 PM LINE CONSTRUCTION SUPERVISOR URINALYSIS AND REFLEX TO MICROSCOPIC AND CULTURE Routine 05/21/2024 11:09 PM LINE CONSTRUCTION SUPERVISOR POCT GLUCOSE DEVICE Routine 05/21/2024 8 :55 PM LINE CONSTRUCTION SUPERVISOR TROPONIN I HIGH-SENSITIVITY 4-HOUR Timed 05/21/2024 7:26 PM LINE CONSTRUCTION SUPERVISOR LIPID PANEL STAT 05/21/2024 4:20 PM LINE CONSTRUCTION SUPERVISOR HEMOGLOBIN A1C STAT 05/21/2024 4:20 PM LINE CONSTRUCTION SUPERVISOR EGFR STAT 05/21/2024 4:20 PM LINE CONSTRUCTION SUPERVISOR DIFFERENTIAL AUTO STAT 05/21/2024 4:2 0 PM LINE CONSTRUCTION SUPERVISOR TROPONIN I HIGH-SENSITIVITY SERIES (BASELINE, 2HR, 4HR, 6HR) STAT 05/21/2024 4:20 PM LINE CONSTRUCTION SUPERVISOR COMPREHENSIVE METABOLIC PANEL STAT 05/21/2024 4:20 PM LINE CONSTRUCTION SUPERVISOR CBC WITH AUTO DIFFERENTIAL STAT 05/21/2024 4:20 PM LINE CONSTRUCTION SUPERVISOR XR CHEST PA LATERAL 2 VIEWS ED 05/21/2024 2:23 PM LINE CONSTRUCTION SUPERVISOR POCT GLUCOSE DEVICE Routine 05/21/2024 1 :39 PM LINE CONSTRUCTION SUPERVISOR ECG 12-LEAD STAT 05/21/2024 1:36 PM LINE CONSTRUCTION SUPERVISOR US AXILLARY LEFT Schedule Routine, Read Routine (OP Routine) 05/21/2024 12:13 PM LINE CONSTRUCTION SUPERVISOR History of breast cancer Axillary pain, left URINALYSIS, MICROSCOPIC ONLY Routine 05/14/2024 4:50 PM LINE CONSTRUCTION SUPERVISOR Malignant neoplasm of upper-inner quadrant of left breast in female, estrogen receptor positive (HCC) URINALYSIS AND REFLEX TO MICROSCOPIC AND CULTURE Routine 05/14/2024 4:50 PM LINE CONSTRUCTION SUPERVISOR Malignant neoplasm of upper-inner quadrant of left breast in female, estrogen receptor positive (HCC) XR RIBS LEFT 2 VIEWS Schedule Routine, Read Routine (OP Routine) 05/14/2024 4:44 PM LINE CONSTRUCTION SUPERVISOR Malignant neoplasm of upper-inner quadrant of left [...] breath since last night. 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 AR: VALERY Report ID: [id number] Reading Location: [id number] Procedure Note Juve Gallegos MD - 07/01/2024 [...] Juve Gallegos M.D. AR: VALERY Report ID: [id number] Reading Location: [id number] us Lila MCKEON IMG CT PROCEDURES Final Resu lt * (ABNORMAL) Troponin T high-sensitivity 2-hour (07/01/2024 3:43 PM CDT) Trop T hs 27(H) <=14 ng/L Comment: Interpretive Data For further hscTnT resources including the diagnostic algorithm and an aid in interpretation, copy and paste this link: https://nrl.testcatalog.org/show/hsTrop Current Interpretive Data last revised 2020. Testing performed by: [address] [address] Trop T hs delta 0 ng/L MARY JANE PHAM Comment:Testing performed by : [address] [address] Trop T hs interp Insignificant MARY JANE PHAM Comment:Testing performed by : [address] [address] Blood 07/01/2024 3:43 PM CDT 07/01/2024 3:52 PM CDT us Ilana Stevens MD LAB BLOOD ORDERABLES F inal Result MARY JANE [address] [facility] Department [place] [address] * (ABNORMAL) Urinalysis reflex to microscopic and culture Urine (07/01/2024 3:43 PM CDT) Color, ur Yellow Yellow Comment:Testing performed by : [address] [address] Clarity, ur Clear Clear MARY JANE PHAM Comment:Testing performed by : [address] [address] Specific gravity, ur 1.020 1.003 - 1.030 MARY JANE PHAM Comment:Testing performed by : [facility], [address] [place] [address], [place]., [address] pH, urine 6.0 MARY JANE Comment: Interpretive [...] formation. Source: [facility] ScalingData Current Interpretive Data was last revised on 2017 Testing performed by: [address], [place]., [address] Protein, ur ql Negative Negative MARY JANE Comment:Testing performed by : [address], [place]., [address] Glucose, ur ql 2+(A) Negative MARY JANE Comment:Testing performed by : [address], [place]., [address] Ketones, ur Negative Negative MARY JANE Comment:Testing performed by : [address], [place]., [address] Bilirubin, ur Negative Negative MARY JANE Comment:Testing performed by : [address], [place]., [address] Blood, ur Trace(A) Negative MARY JANE Comment:Testing performed by : [address], [place]., [address] Urobilinogen, ur <2.0 <2.0 mg/dL MARY JANE Comment:Testing performed by : [address], [place]., [address] Nitrite, ur Negative Negative MARY JANE Comment:Testing performed by : [address], [place]., [address] Leukocyte esterase, ur Negative Negative MARY JANE Comment:Testing performed by : [address] [address] UA reflex comment Reflex to microscopic UA will be performed. MARY JANE Comment:Testing performed by : [address], [place]., [address] Urine 07/01/2024 3:43 PM CDT 07/01/2024 3:52 PM CDT Ilana Stevens MD LAB MICROBIOLOGY - GEN ERAL ORDERABLES Final Result Performing Organization Address [facility] de Phone Number MARY JANE [facility] [place] [address] * (ABNORMAL) Urinalysis, microscopic only (07/01/2024 3:43 PM CDT) WBC, ur 0-5 0 - 5 /HPF Comment:Testing performed by : [address] [address] RBC, ur 3-5(A) 0 - 2 /HPF MARY JANE Comment:Testing performed by : [address] [address] Epithelial cells, squamous, ur 1-5 0 - 5 /HPF MARY JANE Comment:Testing performed by : [address] [address] Mucous, ur Present(A) MARY JANE Comment:Testing performed by : [address] [address] Culture Reflex Comment Reflex conditions for urine culture (WBC >10) not met. MARY JANE Comment:Testing performed by : [address] [address] Urine 07/01/2024 3:43 PM CDT 07/01/2024 3:52 PM CDT Ilana Stevens MD LAB URINE ORDERABLES F inal Result Performing Organization Address [facility] Co de Phone Number MARY JANE [address] [facility] [place] [address] * XR Chest 1 Vw Portable (if [...] Romelia Bowen D.O. PS: PS Report ID: [id number] Reading Location: [id number] Procedure Note Romelia Bowen, - 07/01/2024 EXAM DESCRIPTION: XR CHEST 1 [...] Romelia Bowen D.O. PS: PS Report ID: [id number] Reading Location: [id number] Ilana Stevens MD IMG XR PROCEDURES Deann l Result * ECG 12 lead (07/01/2024 2:05 PM CDT) Ventricular Rate EKG/Min 76 BPM [facility] Atrial Rate 76 BPM [facility] WY-Interval (MSEC) 130 ms [facility] QRS-Interval (MSEC) 86 ms [facility] QT-Interval (MSEC) 386 ms [facility] QTc 434 ms [facility] P [place] 26 degrees [facility] R [place] 22 degrees [facility] T [place] 46 degrees [facility] Diagnosis Normal sinus rhythm Normal ECG When compared with ECG of 28-DEC-2023 12:49, No significant change was found Confirmed by DUTCH BURGOS M.D. ([id number]) on 07/01/2024 10:10:22 PM [facility] 07/01/2024 2:05 PM CDT 07/01/2024 10:10 PM CDT us Ilana Stevens MD ECG ORDERABLES Final Result Performing Organization Address City/[facility]/ZIP Co de Phone Number [facility] * (ABNORMAL) Troponin T high-sensitivity series (baseline, 2hr, 4hr, 6hr) (07/01/2024 2:02 PM CDT) Pathologist [facility] Trop T hs 27(H) <=14 ng/L Comment: Interpretive Data For further hscTnT resources including the diagnostic algorithm and an aid in interpretation, copy and paste this link: https://nrl.testcatalog.org/show/hsTrop Current Interpretive Data last revised 2020. Testing performed by: [facility], [address] [place] [address]., [address] Blood 07/01/2024 2:02 PM CDT 07/01/2024 2:12 PM CDT us Ilana Stevens MD LAB BLOOD ORDERABLES F inal Result MARY JANE [address] [facility] Department [place] [address] * Influenza A/B, RSV, and COVID-19 PCR Nasopharyngeal (07/01/2024 2:02 PM CDT) [facility] COVID-19 RNA Negative Negative Comment:Testing performed by : [address] [address] Influenza A RNA Negative Negative [facility] Comment:Testing performed by : [address] [address] Influenza B RNA Negative Negative [facility] Comment:Testing performed by : [address] [address] RSV RNA Negative Negative [facility] Comment: Interpretive data: Testing performed by [facility]. This test is performed using the [employer] Xpert Xpress CoV-2/Flu/RSV plus assay. This is a multiplex, real-time reverse transcriptase PCR assay intended for the qualitative detection of nucleic acid from SARS-CoV-2, influenza A, influenza B, and respiratory syncytial virus. This assay has been cleared by the [place] Food and Drug administration. The performance characteristics have been verified by the [facility]. Results must be considered in the clinical context, and a negative result does not rule out infection. Interpretive Data last revised 2023 Testing performed by: [address] [address] Nasopharyngeal 07/01/2024 2: 02 PM CDT 07/01/2024 2:12 PM CDT Narrative [facility] - 07/01/2024 2:52 PM CDT Is the Patient experiencing symptoms consistent with COVID?->Yes us Ilana Stevens MD LAB MICROBIOLOGY - GEN ERAL ORDERABLES Final Result [facility] [address] [facility] Department [place] [address] * eGFR (07/01/2024 2:02 PM CDT) [facility] eGFR >90 >=60 mL/min/1. 73 m2 Comment: [...] was last reviewed 2021. Testing performed by: [address] [address] Blood 07/01/2024 2:02 PM CDT 07/01/2024 2:12 PM CDT us Ilana Stevens MD LAB BLOOD ORDERABLES F inal Result [place] [address] [facility] Department of Laboratories [place], [place] [id number] * Differential, auto (07/01/2024 2:02 PM CDT) Neutrophil abs 5.3 1.5 - 6.5 K/cumm Comment:Testing performed by : [address] [address] Imm gran abs 0.0 0.0 - 0.1 K/cumm MARY JANE Comment:Testing performed by : [address] [address] Lymphocyte abs 2.6 0.8 - 3.3 K/cumm MARY JANE Comment:Testing performed by : [address] [address] Monocyte abs 0.8 0.2 - 0.8 K/cumm MARY JANE Comment:Testing performed by : [address] [address] Eosinophil abs 0.2 0.0 - 0.5 K/cumm MARY JANE Comment:Testing performed by : [address] [address] Basophil abs 0.0 0.0 - 0.1 K/cumm MARY JANE Comment:Testing performed by : [address] [address] Neutrophil pct 59.1 % [facility] Comment: Interpretive Data Percent cell count reference ranges are not reported, since discordance with absolute values may lead to misinterpretation of CBC data. Current Interpretive Data was last revised on 2017. Testing performed by: [address] [address] Imm gran pct 0.2 % [facility] Comment: Interpretive Data Percent cell count reference ranges are not reported, since discordance with absolute values may lead to misinterpretation of CBC data. Current Interpretive Data was last revised on 2017. Testing performed by: [address] [address] Lymphocyte pct 29.0 % [facility] Comment: Interpretive Data Percent cell count reference ranges are not reported, since discordance with absolute values may lead to misinterpretation of CBC data. Current Interpretive Data was last revised on 2017. Testing performed by: [address] [address] Monocyte pct 9.3 % [facility] Comment: Interpretive Data Percent cell count reference ranges are not reported, since discordance with absolute values may lead to misinterpretation of CBC data. Current Interpretive Data was last revised on 2017. Testing performed by: [address] [address] Eosinophil pct 2.2 % [facility] Comment: Interpretive Data Percent cell count reference ranges are not reported, since discordance with absolute values may lead to misinterpretation of CBC data. Current Interpretive Data was last revised on 2017. Testing performed by: [address] [address] Basophil pct 0.2 % [facility] Comment: Interpretive Data Percent cell count reference ranges are not reported, since discordance with absolute values may lead to misinterpretation of CBC data. Current Interpretive Data was last revised on 2017. Testing performed by: [facility], [address] [place] [address]., [id number] Blood 07/01/2024 2:02 PM CDT 07/01/2024 2:12 PM CDT us Ilana Stevens MD LAB BLOOD ORDERABLES F inal Result MARY JANE [address] [facility] [place] [address] * Pro B-type natriuretic peptide [...] Heart J. 2006:27:330-337. 2. Tracy GRANT, Duyen EBE. J. AM Wang Cardiol: Cardiovasc Imag. 2009;2: 216- 225. Interpretive Data Last Revised Date: 2017. Testing performed by: [facility], [address] [place] [address]., [id number] Blood 07/01/2024 2:02 PM CDT 07/01/2024 2:12 PM CDT us Ilana Stevens MD LAB BLOOD ORDERABLES F inal Result [facility] [address] [facility] [place] [address] * (ABNORMAL) CBC with auto differential (07/01/2024 2:02 PM CDT) Pathologist [facility] WBC 9.0 3.8 - 9.9 K/cumm Comment:Testing performed by : [address] [address] Hgb 13.2 11.9 - 15.5 g/dL MARY JANE Comment:Testing performed by : [address], [address] Hct 41.1 35.6 - 45.5 % MARY JANE Comment:Testing performed by : [address] [address] Plt 277 150 - 400 K/cumm MARY JANE Comment:Testing performed by : [address] [address] MPV 9.5 9.1 - 12.3 fL MARY JANE Comment:Testing performed by : [address] [address] RBC 4.53 3.90 - 5.20 M/cumm MARY JANE Comment:Testing performed by : [address] [address] MCV 90.7 81.3 - 96.4 fL MARY JANE Comment:Testing performed by : [address] [address] MCH 29.1 27.1 - 33.3 pg MARY JANE PHAM Comment:Testing performed by : [address] [address] MCHC 32.1(L) 32.3 - 35.7 g/dL MARY JANE Comment:Testing performed by : [address] [place] [address] RDW CV 13.2 11.1 - 14.9 % MARY JANE PHAM Comment:Testing performed by : [address] [address] RDW SD 44.2 35.7 - 48.1 fL MARY JANE PHAM Comment:Testing performed by : [facility], [address] [place] [address]., [address] NRBC abs 0.00 0.00 - 0.01 K/cumm MARY JANE Comment:Testing performed by : [address] [address] Blood 07/01/2024 2:02 PM CDT 07/01/2024 2:12 PM CDT us Ilana Stevens MD LAB BLOOD ORDERABLES F inal Result MARY JANE [facility] Department [place] [address] * Comprehensive metabolic panel (07/01/2024 2:02 PM CDT) Sodium 137 135 - 145 mmol/L Comment:Testing performed by : [address] [address] Potassium, pl 4.2 3.3 - 4.9 mmol/L MARY JANE Comment:Testing performed by : [address] [address] Chloride 101 97 - 110 mmol/L MARY JANE Comment:Testing performed by : [address] [address] CO2 27 22 - 32 mmol/L MARY JANE Comment:Testing performed by : [address] [address] Anion gap 9 2 - 15 mmol/L MARY JANE Comment:Testing performed by : [address] [address] BUN 15 6 - 25 mg/dL MARY JANE Comment:Testing performed by : [address] [address] Creatinine 0.60 0.60 - 1.10 mg/dL MARY JANE Comment:Testing performed by : [address] [address] Glucose 166 70 - 199 mg/dL MARY [...] was last revised 2022. Testing performed by: [address] [address] Calcium 9.8 8.5 - 10.3 mg/dL MARY JANE Comment:Testing performed by : [address] [address] Bilirubin, total 0.5 0.1 - 1.2 mg/dL MARY JANE Comment:Testing performed by : [address] [address] Protein, pl 8.0 6.5 - 8.5 g/dL MARY JANE Comment:Testing performed by : [address] [address] Albumin 3.8 3.5 - 5.0 g/dL MARY JANE Comment:Testing performed by : [address] [address] Alk phos 72 40 - 130 Units/L MARY JANE Comment:Testing performed by : [address] [address] ALT 19 7 - 45 Units/L MARY JANE Comment:Testing performed by : [address] [address] AST 23 10 - 45 Units/L MARY JANE Comment:Testing performed by : [address] [address] Blood 07/01/2024 2:02 PM CDT 07/01/2024 2:12 PM CDT Ilana Stevens MD LAB BLOOD ORDERABLES F inal Result MARY JANE [address] [facility] Department [place] [address] * POCT glucose (05/26/2024 4:27 PM LINE CONSTRUCTION SUPERVISOR) Glucose, POC 137 70 - 199 mg/dL Blood 05/26/2024 4:27 PM LINE CONSTRUCTION SUPERVISOR 05/26/2024 4:27 PM LINE CONSTRUCTION SUPERVISOR Carlos Real MD LAB POCT ORDERABLES - DEVICE Fin al Result Performing Organization Address [facility] de Phone Number BCPUJA [facility] [place] [address] * POCT glucose (05/26/2024 11:38 AM LINE CONSTRUCTION SUPERVISOR) Glucose, POC 146 70 - 199 mg/dL Blood 05/26/2024 11:3 8 AM LINE CONSTRUCTION SUPERVISOR 05/26/2024 11:38 AM LINE CONSTRUCTION SUPERVISOR Carlos Real MD LAB POCT ORDERABLES - DEVICE Fin al Result Performing Organization Address [facility] Co de Phone Number MARY JANE [facility] [place] [address] * POCT glucose (05/26/2024 8:12 AM LINE CONSTRUCTION SUPERVISOR) Glucose, POC 134 70 - 199 mg/dL Blood 05/26/2024 8:12 AM LINE CONSTRUCTION SUPERVISOR 05/26/2024 8:12 AM LINE CONSTRUCTION SUPERVISOR Carlos Real MD LAB POCT ORDERABLES - DEVICE Fin al Result Performing Organization Address City/[facility] Co de Phone Number MARY JANE [facility] [employer] [address] * eGFR (05/26/2024 12:05 AM LINE CONSTRUCTION SUPERVISOR) Pathologist [facility] eGFR >90 >=60 mL/min/1. [...] reviewed 2021. Blood 05/26/2024 12:0 5 AM LINE CONSTRUCTION SUPERVISOR 05/26/2024 12:23 AM LINE CONSTRUCTION SUPERVISOR Carlos Real MD LAB BLOOD ORDERABLES Final Resul t [facility] One [facility] Department [place] [address] * (ABNORMAL) Differential, auto (05/26/2024 12:05 AM LINE CONSTRUCTION SUPERVISOR) Pathologist [facility] Neutrophil abs 6.4 1.5 - 6.5 K/cumm Imm gran abs 0.0 0.0 - 0.1 K/cumm [facility] Lymphocyte abs 2.9 0.8 - 3.3 K/cumm [facility] Monocyte abs 0.9(H) 0.2 - 0.8 K/cumm [facility] Eosinophil abs 0.3 0.0 - 0.5 K/cumm [facility] Basophil abs 0.0 0.0 - 0.1 K/cumm [facility] Neutrophil pct 60.4 % [facility] Comment: Interpretive [...] revised on 2017. Lymphocyte pct 27.5 % [facility] Comment: Interpretive Data Percent cell count reference ranges are not reported, since discordance with absolute values may lead to misinterpretation of CBC data. Current Interpretive Data was last revised on 2017. Monocyte pct 8.2 % [facility] Comment: Interpretive Data Percent cell count reference ranges are not reported, since discordance with absolute values may lead to misinterpretation of CBC data. Current Interpretive Data was last revised on 2017. Eosinophil pct 3.1 % [facility] Comment: Interpretive [...] on 2017. Blood 05/26/2024 12:0 5 AM LINE CONSTRUCTION SUPERVISOR 05/26/2024 12:07 AM LINE CONSTRUCTION SUPERVISOR Carlos Real MD LAB BLOOD ORDERABLES Final Resul t [facility] One [facility] Department [place] [address] * (ABNORMAL) CBC with auto differential (05/26/2024 12:05 AM LINE CONSTRUCTION SUPERVISOR) WBC 10.6(H) 3.8 - 9.9 K/cumm Hgb 12.5 11.9 - 15.5 g/dL [facility] Hct 39.2 35.6 - 45.5 % [facility] Plt 248 150 - 400 K/cumm [facility] MPV 9.7 9.1 - 12.3 fL [facility] RBC 4.32 3.90 - 5.20 M/cumm [facility] MCV 90.7 81.3 - 96.4 fL [facility] MCH 28.9 27.1 - 33.3 pg [facility] MCHC 31.9(L) 32.3 - 35.7 g/dL [facility] RDW CV 13.5 11.1 - 14.9 % [facility] RDW SD 45.1 35.7 - 48.1 fL [facility] NRBC abs 0.00 0.00 - 0.01 K/cumm [facility] Blood 05/26/2024 12:0 5 AM LINE CONSTRUCTION SUPERVISOR 05/26/2024 12:07 AM LINE CONSTRUCTION SUPERVISOR Carlos Real MD LAB BLOOD ORDERABLES Final Resul t Performing Organization Address City/[facility] Co de Phone Number [facility] Department [place] [address] * Phosphorus (05/26/2024 12:05 AM LINE CONSTRUCTION SUPERVISOR) Phosphorus, pl 3.2 2.3 - 4.5 mg/dL Blood 05/26/2024 12:0 5 AM LINE CONSTRUCTION SUPERVISOR 05/26/2024 12:08 AM LINE CONSTRUCTION SUPERVISOR Carlos Real MD LAB BLOOD ORDERABLES Final Resul t [facility] Department [place] [address] * Magnesium (05/26/2024 12:05 AM LINE CONSTRUCTION SUPERVISOR) Magnesium 1.8 1.4 - 2.5 mg/dL Blood 05/26/2024 12:0 5 AM LINE CONSTRUCTION SUPERVISOR 05/26/2024 12:08 AM LINE CONSTRUCTION SUPERVISOR Carlos Real MD LAB BLOOD ORDERABLES Final Resul t Performing Organization Address [facility] Co de Phone Number [facility] One [facility] Department [place] [address] * (ABNORMAL) Comprehensive metabolic panel (05/26/2024 12:05 AM LINE CONSTRUCTION SUPERVISOR) Sodium 136 135 - 145 mmol/L Potassium, pl 4.2 3.3 - 4.9 mmol/L [facility] Chloride 101 97 - 110 mmol/L [facility] CO2 29 22 - 32 mmol/L [facility] Anion gap 6 2 - 15 mmol/L [facility] BUN 19 6 - 25 mg/dL [facility] Creatinine 0.67 0.60 - 1.10 mg/dL [facility] Glucose 164 70 - 199 mg/dL [facility] Comment: Interpretive Data Fasting glucose [...] Calcium 9.4 8.5 - 10.3 mg/dL [facility] Bilirubin, total 0.4 0.1 - 1.2 mg/dL [facility] Protein, pl 7.1 6.5 - 8.5 g/dL [facility] Albumin 3.3(L) 3.5 - 5.0 g/dL [facility] Alk phos 65 40 - 130 Units/L [facility] ALT 17 7 - 45 Units/L [facility] AST 19 10 - 45 Units/L [facility] Blood 05/26/2024 12:0 5 AM LINE CONSTRUCTION SUPERVISOR 05/26/2024 12:08 AM LINE CONSTRUCTION SUPERVISOR Carlos Real MD LAB BLOOD ORDERABLES Final Resul t Performing Organization Address City/State/[facility] Co de Phone Number [facility] [employer] [address] * POCT glucose (05/25/2024 7:44 PM LINE CONSTRUCTION SUPERVISOR) Glucose, POC 160 70 - 199 mg/dL Blood 05/25/2024 7:44 PM LINE CONSTRUCTION SUPERVISOR 05/25/2024 7:44 PM LINE CONSTRUCTION SUPERVISOR Carlos Real MD LAB POCT ORDERABLES - DEVICE Fin al Result Performing Organization Address [facility] [place] [address] * POCT glucose (05/25/2024 5:24 PM LINE CONSTRUCTION SUPERVISOR) Glucose, POC 152 70 - 199 mg/dL Blood 05/25/2024 5:24 PM LINE CONSTRUCTION SUPERVISOR 05/25/2024 5:24 PM LINE CONSTRUCTION SUPERVISOR Carlos Real MD LAB POCT ORDERABLES - DEVICE Fin al Result Performing Organization Address [facility] Co de Phone Number [facility] Department [place] [place] [address] * POCT glucose (05/25/2024 11:37 AM LINE CONSTRUCTION SUPERVISOR) Glucose, POC 143 70 - 199 mg/dL Blood 05/25/2024 11:3 7 AM LINE CONSTRUCTION SUPERVISOR 05/25/2024 11:37 AM LINE CONSTRUCTION SUPERVISOR Carlos Real MD LAB POCT ORDERABLES - DEVICE Fin al Result Performing Organization Address [facility] Co de Phone Number [facility] [place] [address] * POCT glucose (05/25/2024 7:27 AM LINE CONSTRUCTION SUPERVISOR) Glucose, POC 134 70 - 199 mg/dL Blood 05/25/2024 7:27 AM LINE CONSTRUCTION SUPERVISOR 05/25/2024 7:27 AM LINE CONSTRUCTION SUPERVISOR Carlos Real MD LAB POCT ORDERABLES - DEVICE Fin al Result Performing Organization Address [facility] Co de Phone Number [facility] [place] [address] * eGFR (05/25/2024 12:20 AM LINE CONSTRUCTION SUPERVISOR) Pathologist [facility] eGFR >90 >=60 mL/min/1. [...] reviewed 2021. Blood 05/25/2024 12:2 0 AM LINE CONSTRUCTION SUPERVISOR 05/25/2024 12:43 AM LINE CONSTRUCTION SUPERVISOR Naila Guzman PROCUREMENT INTERN LAB BLOOD ORDERABLES Final Result Performing Organization Address [facility]/ZIP Co de Phone Number [facility] Department [place] [address] * Differential, auto (05/25/2024 12:20 AM LINE CONSTRUCTION SUPERVISOR) Pathologist [facility] Neutrophil abs 5.9 1.5 - 6.5 K/cumm Imm gran abs 0.0 0.0 - 0.1 K/cumm [facility] Lymphocyte abs 2.4 0.8 - 3.3 K/cumm [facility] Monocyte abs 0.8 0.2 - 0.8 K/cumm [facility] Eosinophil abs 0.3 0.0 - 0.5 K/cumm [facility] Basophil abs 0.0 0.0 - 0.1 K/cumm [facility] Neutrophil pct 62.6 % [facility] Comment: Interpretive Data Percent cell count reference ranges are not reported, since discordance with absolute values may lead to misinterpretation of CBC data. Current Interpretive Data was last revised on 2017. Imm gran pct 0.3 % [facility] Comment: Interpretive Data Percent cell count reference ranges are not reported, since discordance with absolute values may lead to misinterpretation of CBC data. Current Interpretive Data was last revised on 2017. Lymphocyte pct 24.8 % [facility] Comment: Interpretive Data Percent cell count reference ranges are not reported, since discordance with absolute values may lead to misinterpretation of CBC data. Current Interpretive Data was last revised on 2017. Monocyte pct 8.8 % [facility] Comment: Interpretive Data Percent cell count reference ranges are not reported, since discordance with absolute values may lead to misinterpretation of CBC data. Current Interpretive Data was last revised on 2017. Eosinophil pct 3.2 % [facility] Comment: Interpretive Data Percent cell count reference ranges are not reported, since discordance with absolute values may lead to misinterpretation of CBC data. Current Interpretive Data was last revised on 2017. Basophil pct 0.3 % [facility] Comment: Interpretive Data Percent cell count reference ranges are not reported, since discordance with absolute values may lead to misinterpretation of CBC data. Current Interpretive Data was last revised on 2017. Blood 05/25/2024 12:2 0 AM LINE CONSTRUCTION SUPERVISOR 05/25/2024 12:29 AM LINE CONSTRUCTION SUPERVISOR us Naila Guzman NP LAB BLOOD ORDERABLES Final Result [facility] One [facility] [place] [address] * (ABNORMAL) CBC with auto differential (05/25/2024 12:20 AM LINE CONSTRUCTION SUPERVISOR) [facility] WBC 9.5 3.8 - 9.9 K/cumm Hgb 12.8 11.9 - 15.5 g/dL [facility] Hct 40.0 35.6 - 45.5 % [facility] Plt 246 150 - 400 K/cumm [facility] MPV 9.8 9.1 - 12.3 fL [facility] RBC 4.42 3.90 - 5.20 M/cumm [facility] MCV 90.5 81.3 - 96.4 fL [facility] MCH 29.0 27.1 - 33.3 pg [facility] MCHC 32.0(L) 32.3 - 35.7 g/dL [facility] RDW CV 13.5 11.1 - 14.9 % [facility] RDW SD 45.3 35.7 - 48.1 fL [facility] NRBC abs 0.00 0.00 - 0.01 K/cumm [facility] Blood 05/25/2024 12:2 0 AM LINE CONSTRUCTION SUPERVISOR 05/25/2024 12:29 AM LINE CONSTRUCTION SUPERVISOR Naila Guzman NP LAB BLOOD ORDERABLES Final Result Performing Organization Address City/[facility] Co de Phone Number [facility] [place] [address] * Phosphorus (05/25/2024 12:20 AM LINE CONSTRUCTION SUPERVISOR) [facility] Phosphorus, pl 3.1 2.3 - 4.5 mg/dL Blood 05/25/2024 12:2 0 AM LINE CONSTRUCTION SUPERVISOR 05/25/2024 12:29 AM LINE CONSTRUCTION SUPERVISOR Naila Guzman NP LAB BLOOD ORDERABLES Final Result [facility] [place] [address] * Magnesium (05/25/2024 12:20 AM LINE CONSTRUCTION SUPERVISOR) Magnesium 1.9 1.4 - 2.5 mg/dL Blood 05/25/2024 12:2 0 AM LINE CONSTRUCTION SUPERVISOR 05/25/2024 12:29 AM LINE CONSTRUCTION SUPERVISOR Naila Guzman PROCUREMENT INTERN LAB BLOOD ORDERABLES Final Result [facility] One [facility] Department [place] [address] * (ABNORMAL) Comprehensive metabolic panel (05/25/2024 12:20 AM LINE CONSTRUCTION SUPERVISOR) Pathologist [facility] Sodium 138 135 - 145 mmol/L Potassium, pl 4.4 3.3 - 4.9 mmol/L [facility] Chloride 101 97 - 110 mmol/L [facility] CO2 29 22 - 32 mmol/L [facility] Anion gap 8 2 - 15 mmol/L [facility] BUN 20 6 - 25 mg/dL [facility] Creatinine 0.69 0.60 - 1.10 mg/dL [facility] Glucose 156 70 - 199 mg/dL [facility] Comment: Interpretive Data Fasting glucose [...] Calcium 9.4 8.5 - 10.3 mg/dL [facility] Bilirubin, total 0.5 0.1 - 1.2 mg/dL [facility] Protein, pl 7.4 6.5 - 8.5 g/dL [facility] Albumin 3.4(L) 3.5 - 5.0 g/dL [facility] Alk phos 67 40 - 130 Units/L [facility] ALT 18 7 - 45 Units/L [facility] AST 16 10 - 45 Units/L [facility] Blood 05/25/2024 12:2 0 AM LINE CONSTRUCTION SUPERVISOR 05/25/2024 12:29 AM LINE CONSTRUCTION SUPERVISOR Naila Guzman PROCUREMENT INTERN LAB BLOOD ORDERABLES Final Result Performing Organization Address [facility] Co de Phone Number [facility] Department [place] [address] * POCT glucose (05/24/2024 8:13 PM LINE CONSTRUCTION SUPERVISOR) Glucose, POC 171 70 - 199 mg/dL Blood 05/24/2024 8:13 PM LINE CONSTRUCTION SUPERVISOR 05/24/2024 8:13 PM LINE CONSTRUCTION SUPERVISOR Carlos Real MD LAB POCT ORDERABLES - DEVICE Fin al Result Performing Organization Address [facility] de Phone Number [facility] Department [place] [address] * POCT glucose (05/24/2024 5:17 PM LINE CONSTRUCTION SUPERVISOR) Glucose, POC 133 70 - 199 mg/dL Blood 05/24/2024 5:17 PM LINE CONSTRUCTION SUPERVISOR 05/24/2024 5:17 PM LINE CONSTRUCTION SUPERVISOR Carlos Real MD LAB POCT ORDERABLES - DEVICE Fin al Result Performing Organization Address [facility] de Phone Number [facility] [place] [address] * POCT glucose (05/24/2024 12:49 PM LINE CONSTRUCTION SUPERVISOR) Glucose, POC 180 70 - 199 mg/dL Blood 05/24/2024 12:4 9 PM LINE CONSTRUCTION SUPERVISOR 05/24/2024 12:49 PM LINE CONSTRUCTION SUPERVISOR Result [facility] Carlos Real MD LAB POCT ORDERABLES - DEVICE Fin al Result Performing Organization Address City/[facility] Co de Phone Number [facility] [place] [place] [address] * POCT glucose (05/24/2024 9:22 AM LINE CONSTRUCTION SUPERVISOR) Pathologist [facility] Glucose, POC 139 70 - 199 mg/dL Blood 05/24/2024 9:22 AM LINE CONSTRUCTION SUPERVISOR 05/24/2024 9:22 AM LINE CONSTRUCTION SUPERVISOR Result [facility] Carlos Real MD LAB POCT ORDERABLES - DEVICE Fin al Result Performing Organization Address [facility] [place] [address] * Herpes Simplex Virus (HSV) PCR Oral (05/24/2024 8:47 AM LINE CONSTRUCTION SUPERVISOR) [facility] HSV DNA Not Detected Not Detected [facility] Comment: Interpretive Data This assay is [...] reviewed on 08/21/2018 Oral 05/24/2024 8:47 AM LINE CONSTRUCTION SUPERVISOR 05/24/2024 9:24 AM LINE CONSTRUCTION SUPERVISOR Narrative [facility] - 05/24/2024 4:28 PM LINE CONSTRUCTION SUPERVISOR Oral ulcer swab Result [facility] Naila Guzman NP LAB MICROBIOLOGY - GENERAL ORDERABLES Final Result Performing Organization Address City/[facility] Co de Phone Number [facility] [place] [address] [facility] * POCT glucose (05/24/2024 8:22 AM LINE CONSTRUCTION SUPERVISOR) Glucose, POC 132 70 - 199 mg/dL Blood 05/24/2024 8:22 AM LINE CONSTRUCTION SUPERVISOR 05/24/2024 8:22 AM LINE CONSTRUCTION SUPERVISOR Carlos Real MD LAB POCT ORDERABLES - DEVICE Fin al Result Performing Organization Address City/[facility]/ZIP Co de Phone Number [facility] Department [place] [address] * eGFR (05/24/2024 12:29 AM LINE CONSTRUCTION SUPERVISOR) eGFR 87 >=60 mL/min/1. 73 m2 Comment: [...] reviewed 2021. Blood 05/24/2024 12:2 9 AM LINE CONSTRUCTION SUPERVISOR 05/24/2024 12:54 AM LINE CONSTRUCTION SUPERVISOR us Naila Guzman PROCUREMENT INTERN LAB BLOOD ORDERABLES Final Result Performing Organization Address [facility]/ZIP Co de Phone Number [facility] Department [place] [address] * (ABNORMAL) Differential, auto (05/24/2024 12:29 AM LINE CONSTRUCTION SUPERVISOR) Neutrophil abs 5.3 1.5 - 6.5 K/cumm Imm gran abs 0.0 0.0 - 0.1 K/cumm [facility] Lymphocyte abs 3.0 0.8 - 3.3 K/cumm [facility] Monocyte abs 0.9(H) 0.2 - 0.8 K/cumm [facility] Eosinophil abs 0.3 0.0 - 0.5 K/cumm [facility] Basophil abs 0.0 0.0 - 0.1 K/cumm [facility] Neutrophil pct 55.8 % [facility] Comment: Interpretive [...] on 2017. Lymphocyte pct 31.4 % [facility] Comment: Interpretive Data Percent cell count reference ranges are not reported, since discordance with absolute values may lead to misinterpretation of CBC data. Current Interpretive Data was last revised on 2017. Monocyte pct 9.0 % [facility] Comment: Interpretive Data Percent cell count reference ranges are not reported, since discordance with absolute values may lead to misinterpretation of CBC data. Current Interpretive Data was last revised on 2017. Eosinophil pct 3.0 % [facility] Comment: Interpretive [...] on 2017. Blood 05/24/2024 12:2 9 AM LINE CONSTRUCTION SUPERVISOR 05/24/2024 12:54 AM LINE CONSTRUCTION SUPERVISOR Naila Guzman NP LAB BLOOD ORDERABLES Final Result Performing Organization Address City/[facility]/ZIP Co de Phone Number [facility] [place] [address] * CBC with auto differential (05/24/2024 12:29 AM LINE CONSTRUCTION SUPERVISOR) Pathologist [facility] WBC 9.5 3.8 - 9.9 K/cumm Hgb 12.6 11.9 - 15.5 g/dL [facility] Hct 39.0 35.6 - 45.5 % [facility] Plt 223 150 - 400 K/cumm [facility] MPV 9.6 9.1 - 12.3 fL [facility] RBC 4.23 3.90 - 5.20 M/cumm [facility] MCV 92.2 81.3 - 96.4 fL [facility] MCH 29.8 27.1 - 33.3 pg [facility] MCHC 32.3 32.3 - 35.7 g/dL [facility] RDW CV 13.7 11.1 - 14.9 % [facility] RDW SD 46.5 35.7 - 48.1 fL [facility] NRBC abs 0.00 0.00 - 0.01 K/cumm [facility] Blood 05/24/2024 12:2 9 AM LINE CONSTRUCTION SUPERVISOR 05/24/2024 12:54 AM LINE CONSTRUCTION SUPERVISOR Naila Guzman NP LAB BLOOD ORDERABLES Final Result Performing Organization Address City/[facility]/ZIP Co de Phone Number [facility] Department [place] [address] * Phosphorus (05/24/2024 12:29 AM LINE CONSTRUCTION SUPERVISOR) Pathologist [facility] Phosphorus, pl 3.6 2.3 - 4.5 mg/dL Blood 05/24/2024 12:2 9 AM LINE CONSTRUCTION SUPERVISOR 05/24/2024 12:54 AM LINE CONSTRUCTION SUPERVISOR Naila Guzman NP LAB BLOOD ORDERABLES Final Result [facility] One [facility] Department [place] [address] * Magnesium (05/24/2024 12:29 AM LINE CONSTRUCTION SUPERVISOR) Pathologist [facility] Magnesium 1.9 1.4 - 2.5 mg/dL Blood 05/24/2024 12:2 9 AM LINE CONSTRUCTION SUPERVISOR 05/24/2024 12:54 AM LINE CONSTRUCTION SUPERVISOR Naila Guzman NP LAB BLOOD ORDERABLES Final Result Performing Organization Address [facility] Co de Phone Number [facility] One [facility] Department [place] [address] * (ABNORMAL) Comprehensive metabolic panel (05/24/2024 12:29 AM LINE CONSTRUCTION SUPERVISOR) [facility] Sodium 139 135 - 145 mmol/L Potassium, pl 4.3 3.3 - 4.9 mmol/L [facility] Chloride 103 97 - 110 mmol/L [facility] CO2 29 22 - 32 mmol/L [facility] Anion gap 7 2 - 15 mmol/L [facility] BUN 19 6 - 25 mg/dL [facility] Creatinine 0.75 0.60 - 1.10 mg/dL [facility] Glucose 157 70 - 199 mg/dL [facility] Comment: Interpretive Data Fasting glucose [...] Calcium 9.2 8.5 - 10.3 mg/dL [facility] Bilirubin, total 0.4 0.1 - 1.2 mg/dL [facility] Protein, pl 7.1 6.5 - 8.5 g/dL [facility] Albumin 3.3(L) 3.5 - 5.0 g/dL [facility] Alk phos 65 40 - 130 Units/L [facility] ALT 18 7 - 45 Units/L [facility] AST 17 10 - 45 Units/L [facility] Blood 05/24/2024 12:2 9 AM LINE CONSTRUCTION SUPERVISOR 05/24/2024 12:54 AM LINE CONSTRUCTION SUPERVISOR Naila Guzman PROCUREMENT INTERN LAB BLOOD ORDERABLES Final Result Performing Organization Address [facility] Co de Phone Number [facility] [employer] [place] [address] * POCT glucose (05/23/2024 8:16 PM LINE CONSTRUCTION SUPERVISOR) Glucose, POC 145 70 - 199 mg/dL Blood 05/23/2024 8:16 PM LINE CONSTRUCTION SUPERVISOR 05/23/2024 8:16 PM LINE CONSTRUCTION SUPERVISOR Result [facility] Carlos Real MD LAB POCT ORDERABLES - DEVICE Fin al Result Performing Organization Address City/[facility] Co de Phone Number [facility] [employer] [place] [address] * POCT glucose (05/23/2024 6:14 PM LINE CONSTRUCTION SUPERVISOR) Glucose, POC 181 70 - 199 mg/dL Blood 05/23/2024 6:14 PM LINE CONSTRUCTION SUPERVISOR 05/23/2024 6:14 PM LINE CONSTRUCTION SUPERVISOR Carlos Real MD LAB POCT ORDERABLES - DEVICE Fin al Result Performing Organization Address [facility] Co de Phone Number [facility] [place] [employer] [place] [address] * POCT glucose (05/23/2024 12:17 PM LINE CONSTRUCTION SUPERVISOR) Glucose, POC 159 70 - 199 mg/dL Blood 05/23/2024 12:1 7 PM LINE CONSTRUCTION SUPERVISOR 05/23/2024 12:17 PM LINE CONSTRUCTION SUPERVISOR us Cem Knapp MD LAB POCT ORDERABLES - DEVIC E Final Result [facility]ARY JANE [facility] [place] [address] * US Vein Duplex Lower Extremity Bilateral Complete (05/23/2024 11:45 AM LINE CONSTRUCTION SUPERVISOR) LV EF % CONS SCIMAGE Anatomical Region Laterality Modality Vascular Bilateral Ultrasound 05/23/2024 11:1 2 AM LINE CONSTRUCTION SUPERVISOR Narrative 05/23/2024 9:43 PM LINE CONSTRUCTION SUPERVISOR [facility] - Department of Vascular Surgery, Vascular Laboratory [address] [place] [id number] Lower Extremity Venous Ultrasound Report Patient Name: MOHSEN MARQUES M : 1955 (68y 11m) Study Date: 05/23/2024 11:12:03 AM Gender: F Tech: VELVET Location: [id number] Ref Provider: CARLOS REAL Quality: Adequate Order Provider: CARLOS REAL PROCEDURES: Vascular Report: Venous Duplex imaging was performed bilaterally in the lower extremities. The common femoral, femoral, popliteal, posterior tibial, peroneal veins were evaluated for patency, spontaneity and phasicity with Doppler, compression and augmentation maneuvers. Great saphenous vein proximal at the junction was evaluated with compression maneuvers. INDICATIONS: Localized edema. FINDINGS: Performing Counterintelligence Analyst: Marlys Castillo RVT. Bilateral: Venous Doppler signals [...] Vu Obregon MD FACS 05/23/2024 9:42:19 PM LINE CONSTRUCTION SUPERVISOR Procedure Note Vu Obregon MD - 05/23/2024 [facility] [employer] [facility] - Department of Vascular Surgery,Vascular Laboratory [address] [place] [id number] Lower Extremity Venous Ultrasound Report Patient Name: MOHSEN MARQUES M : 1955 (68y 11m) Study Date: 05/23/2024 11:12:03 AM Gender: F Tech: VELVET Location: [id number] Ref Provider: CARLOS REAL Quality: Adequate Order Provider: CARLOS REAL PROCEDURES: Vascular Report: Venous Duplex imaging was performed bilaterally in the lower extremities.The common femoral, femoral, popliteal, posterior tibial, peroneal veins wereevaluated for patency, spontaneity and phasicity with Doppler, compression and augmentationmaneuvers. Great saphenous vein proximal at the junction was evaluated with compressionmaneuvers. INDICATIONS: Localized edema. FINDINGS: Performing Counterintelligence Analyst: Marlys Castillo RVT. Bilateral: Venous Doppler signals [...] Vu Obregon MD, FACS 05/23/2024 9:42:19 PM LINE CONSTRUCTION SUPERVISOR us Carlosmady Real MD [facility] PROCEDURES Final Result * (ABNORMAL) POCT glucose (05/23/2024 8:16 AM LINE CONSTRUCTION SUPERVISOR) Glucose, POC 204(H) 70 - 199 mg/dL Blood 05/23/2024 8:16 AM LINE CONSTRUCTION SUPERVISOR 05/23/2024 8:16 AM LINE CONSTRUCTION SUPERVISOR Cem Knapp MD LAB POCT ORDERABLES - DEVIC E Final Result [facility] One [facility] Department [place] [address] * (ABNORMAL) Differential, auto (05/23/2024 2:30 AM LINE CONSTRUCTION SUPERVISOR) Pathologist [facility] Neutrophil abs 8.0(H) 1.5 - 6.5 K/cumm Imm gran abs 0.1 0.0 - 0.1 K/cumm [facility] Lymphocyte abs 2.6 0.8 - 3.3 K/cumm [facility] Monocyte abs 1.0(H) 0.2 - 0.8 K/cumm [facility] Eosinophil abs 0.3 0.0 - 0.5 K/cumm [facility] Basophil abs 0.0 0.0 - 0.1 K/cumm [facility] Neutrophil pct 66.5 % [facility] Comment: Interpretive Data Percent cell count reference ranges are not reported, since discordance with absolute values may lead to misinterpretation of CBC data. Current Interpretive Data was last revised on 2017. Imm gran pct 0.5 % [facility] Comment: Interpretive Data Percent cell count reference ranges are not reported, since discordance with absolute values may lead to misinterpretation of CBC data. Current Interpretive Data was last revised on 2017. Lymphocyte pct 21.9 % [facility] Comment: Interpretive Data Percent cell count reference ranges are not reported, since discordance with absolute values may lead to misinterpretation of CBC data. Current Interpretive Data was last revised on 2017. Monocyte pct 8.5 % [facility] Comment: Interpretive Data Percent cell count reference ranges are not reported, since discordance with absolute values may lead to misinterpretation of CBC data. Current Interpretive Data was last revised on 2017. Eosinophil pct 2.3 % [facility] Comment: Interpretive Data Percent cell count reference ranges are not reported, since discordance with absolute values may lead to misinterpretation of CBC data. Current Interpretive Data was last revised on 2017. Basophil pct 0.3 % [facility] Comment: Interpretive Data Percent cell count reference ranges are not reported, since discordance with absolute values may lead to misinterpretation of CBC data. Current Interpretive Data was last revised on 2017. Blood 05/23/2024 2:30 AM LINE CONSTRUCTION SUPERVISOR 05/23/2024 1:03 AM LINE CONSTRUCTION SUPERVISOR us Naila Guzman NP LAB BLOOD ORDERABLES Final Result [facility] One [facility] Department [place] [address] * (ABNORMAL) CBC with auto differential (05/23/2024 2:30 AM LINE CONSTRUCTION SUPERVISOR) WBC 11.9(H) 3.8 - 9.9 K/cumm Hgb 12.8 11.9 - 15.5 g/dL [facility] Hct 39.6 35.6 - 45.5 % [facility] Plt 254 150 - 400 K/cumm [facility] MPV 9.7 9.1 - 12.3 fL [facility] RBC 4.43 3.90 - 5.20 M/cumm [facility] MCV 89.4 81.3 - 96.4 fL [facility] MCH 28.9 27.1 - 33.3 pg [facility] MCHC 32.3 32.3 - 35.7 g/dL [facility] RDW CV 13.7 11.1 - 14.9 % [facility] RDW SD 44.6 35.7 - 48.1 fL [facility] NRBC abs 0.00 0.00 - 0.01 K/cumm [facility] Blood 05/23/2024 2:30 AM LINE CONSTRUCTION SUPERVISOR 05/23/2024 1:03 AM LINE CONSTRUCTION SUPERVISOR us Naila Heather Thomas PROCUREMENT INTERN LAB BLOOD ORDERABLES Final Result Performing Organization Address [facility]/ZIP Co de Phone Number MARY JANE [facility] [place] [address] * eGFR (05/23/2024 12:42 AM LINE CONSTRUCTION SUPERVISOR) eGFR 84 >=60 mL/min/1. 73 m2 Comment: [...] reviewed 2021. Blood 05/23/2024 12:4 2 AM LINE CONSTRUCTION SUPERVISOR 05/23/2024 1:02 AM LINE CONSTRUCTION SUPERVISOR Naila Guzman NP LAB BLOOD ORDERABLES Final Result Performing Organization Address [facility]/ZIP Co de Phone Number [facility]ARY JANE [facility] One [facility] Department [place] [address] * Type and screen (05/23/2024 12:42 AM LINE CONSTRUCTION SUPERVISOR) ABO Rh O Positive Dilcia, indirect Negative [facility] Blood 05/23/2024 12:4 2 AM LINE CONSTRUCTION SUPERVISOR 05/23/2024 12:52 AM LINE CONSTRUCTION SUPERVISOR Narrative [facility] - 05/23/2024 1:53 AM LINE CONSTRUCTION SUPERVISOR Has the patient had Daratumumab or Isatuximab in the past 6 months?->Unknown Naila Guzman NP LAB BLOOD BANK TEST ORDERA BLES Final Result Performing Organization Address [facility] [place] [address] * Uric acid (05/23/2024 12:42 AM LINE CONSTRUCTION SUPERVISOR) Uric acid 5.5 2.5 - 7.0 mg/dL Blood 05/23/2024 12:4 2 AM LINE CONSTRUCTION SUPERVISOR 05/23/2024 1:02 AM LINE CONSTRUCTION SUPERVISOR Narrative [facility] - 05/23/2024 1:34 AM LINE CONSTRUCTION SUPERVISOR Monday and only. Morning draw. . Naila Guzman NP LAB BLOOD ORDERABLES Final Result Performing Organization Address [facility] [place] [address] * Phosphorus (05/23/2024 12:42 AM LINE CONSTRUCTION SUPERVISOR) Pathologist [facility] Phosphorus, pl 4.4 2.3 - 4.5 mg/dL Blood 05/23/2024 12:4 2 AM LINE CONSTRUCTION SUPERVISOR 05/23/2024 1:02 AM LINE CONSTRUCTION SUPERVISOR Naila Guzman NP LAB BLOOD ORDERABLES Final Result Performing Organization Address [facility] [place] [address] * Magnesium (05/23/2024 12:42 AM LINE CONSTRUCTION SUPERVISOR) Magnesium 1.9 1.4 - 2.5 mg/dL Blood 05/23/2024 12:4 2 AM LINE CONSTRUCTION SUPERVISOR 05/23/2024 1:02 AM LINE CONSTRUCTION SUPERVISOR Nalia Guzman NP LAB BLOOD ORDERABLES Final Result Performing Organization Address City/[facility] Co de Phone Number [facility] Department [place] [address] * Lactate dehydrogenase (LD) (05/23/2024 12:42 AM LINE CONSTRUCTION SUPERVISOR) [facility] Lactate dehydrogenase (LDH) 247 100 - 250 Units/L Blood 05/23/2024 12:4 2 AM LINE CONSTRUCTION SUPERVISOR 05/23/2024 1:02 AM LINE CONSTRUCTION SUPERVISOR Narrative [facility] - 05/23/2024 1:34 AM LINE CONSTRUCTION SUPERVISOR Monday and only. Morning draw. Naila Guzman NP LAB BLOOD ORDERABLES Final Result Performing Organization Address [facility] de Phone Number [facility] Department [place] [address] * Comprehensive metabolic panel (05/23/2024 12:42 AM LINE CONSTRUCTION SUPERVISOR) [facility] Sodium 136 135 - 145 mmol/L Potassium, pl 4.3 3.3 - 4.9 mmol/L [facility] Chloride 101 97 - 110 mmol/L [facility] CO2 29 22 - 32 mmol/L [facility] Anion gap 6 2 - 15 mmol/L [facility] BUN 18 6 - 25 mg/dL [facility] Creatinine 0.77 0.60 - 1.10 mg/dL [facility] Glucose 194 70 - 199 mg/dL [facility] Comment: Interpretive Data Fasting glucose [...] Calcium 9.5 8.5 - 10.3 mg/dL [facility] Bilirubin, total 0.5 0.1 - 1.2 mg/dL [facility] Protein, pl 7.4 6.5 - 8.5 g/dL [facility] Albumin 3.5 3.5 - 5.0 g/dL [facility] Alk phos 71 40 - 130 Units/L [facility] ALT 19 7 - 45 Units/L [facility] AST 22 10 - 45 Units/L [facility] Blood 05/23/2024 12:4 2 AM LINE CONSTRUCTION SUPERVISOR 05/23/2024 1:02 AM LINE CONSTRUCTION SUPERVISOR us Naila Guzman NP LAB BLOOD ORDERABLES Final Result Performing Organization Address City/[facility]/ZIP Co de Phone Number [facility] Department [place] [place] [address] * (ABNORMAL) POCT glucose (05/22/2024 8:56 PM LINE CONSTRUCTION SUPERVISOR) Glucose, POC 210(H) 70 - 199 mg/dL Blood 05/22/2024 8:56 PM LINE CONSTRUCTION SUPERVISOR 05/22/2024 8:56 PM LINE CONSTRUCTION SUPERVISOR us Cem Knapp MD LAB POCT ORDERABLES - DEVIC E Final Result Performing Organization Address [facility] Co de Phone Number [facility] Department [place] [address] * POCT glucose (05/22/2024 6:09 PM LINE CONSTRUCTION SUPERVISOR) Glucose, POC 142 70 - 199 mg/dL Blood 05/22/2024 6:09 PM LINE CONSTRUCTION SUPERVISOR 05/22/2024 6:09 PM LINE CONSTRUCTION SUPERVISOR us Leo Henry MD LAB POCT ORDERABLES - NILESH CE Final Result Performing Organization Address City/[facility]/ZIP Co de Phone Number [facility] Department [place] [address] * POCT glucose (05/22/2024 4:26 PM LINE CONSTRUCTION SUPERVISOR) Glucose, POC 133 70 - 199 mg/dL Blood 05/22/2024 4:26 PM LINE CONSTRUCTION SUPERVISOR 05/22/2024 4:26 PM LINE CONSTRUCTION SUPERVISOR Leo Henry MD LAB POCT ORDERABLES - NILESH CE Final Result Performing Organization Address City/State/ZIP Co ma Phone Number MARY JANE ANGELES [facility] Department [place] [address] * CT Abdomen Pelvis W Contrast (05/22/2024 2:32 PM LINE CONSTRUCTION SUPERVISOR) Anatomical Region Laterality Modality Body N/A Computed Tomogra phy 05/22/2024 4:35 PM LINE CONSTRUCTION SUPERVISOR Impressions 05/22/2024 5:16 PM LINE CONSTRUCTION SUPERVISOR No acute findings within the abdomen or pelvis. Dictated by: Yesi Mendes M.D. The radiology attending physician has personally reviewed this study, and had reviewed and/or edited this written report and agrees with it. Electronically signed by: Kelli Palmer M.D. Narrative 05/22/2024 5:16 PM LINE CONSTRUCTION SUPERVISOR EXAMINATION: Computed tomography of the abdomen and [...] sult * POCT glucose (05/22/2024 12:58 PM LINE CONSTRUCTION SUPERVISOR) Glucose, POC 177 70 - 199 mg/dL Blood 05/22/2024 12:5 8 PM LINE CONSTRUCTION SUPERVISOR 05/22/2024 12:58 PM LINE CONSTRUCTION SUPERVISOR Leo Henry MD LAB POCT ORDERABLES - NILESH CE Final Result Performing Organization Address [facility] Co de Phone Number [facility] [place] [address] * (ABNORMAL) POCT glucose (05/22/2024 9:29 AM LINE CONSTRUCTION SUPERVISOR) Glucose, POC 291(H) 70 - 199 mg/dL Blood 05/22/2024 9:29 AM LINE CONSTRUCTION SUPERVISOR 05/22/2024 9:29 AM LINE CONSTRUCTION SUPERVISOR Leo Henry MD LAB POCT ORDERABLES - NILESH CE Final Result Performing Organization Address [facility] Co de Phone Number [facility] [place] [address] * POCT glucose (05/22/2024 6:54 AM LINE CONSTRUCTION SUPERVISOR) Glucose, POC 142 70 - 199 mg/dL Blood 05/22/2024 6:54 AM LINE CONSTRUCTION SUPERVISOR 05/22/2024 6:54 AM LINE CONSTRUCTION SUPERVISOR Jimmie Zavala MD LAB POCT ORDERABLES - DEVICE Fin al Result Performing Organization Address [facility] Co de Phone Number [facility] [place] [address] * CT Chest PE (CTA) W Contrast (05/22/2024 1:31 AM LINE CONSTRUCTION SUPERVISOR) Anatomical Region Laterality Modality Body N/A Computed Tomogra phy 05/22/2024 2:38 AM LINE CONSTRUCTION SUPERVISOR Impressions 05/22/2024 9:12 AM LINE CONSTRUCTION SUPERVISOR No pulmonary embolism. Dictated by: Miguel Milligan MD The radiology attending physician has personally reviewed this study, and had reviewed and/or edited this written report and agrees with it. Electronically signed by: Jayson Rockwell M.D. Narrative 05/22/2024 9:12 AM LINE CONSTRUCTION SUPERVISOR EXAMINATION: CT CHEST PE (CTA) W CONTRAST [...] Result * D-dimer, quantitative (05/22/2024 12:24 AM LINE CONSTRUCTION SUPERVISOR) D-Dimer 414 <=499 ng/mL FEU Comment: Interpretive [...] 68, VTE cut-off 680 ng/ml FEU. References; Emmy SAN et al. Brit Med J. 2013;346:f2492. Pooja et al. Annals Int Med. 2015;163:701-11. Current interpretive data was last revised on 2019. Blood 05/22/2024 12:2 4 AM LINE CONSTRUCTION SUPERVISOR 05/22/2024 12:42 AM LINE CONSTRUCTION SUPERVISOR Angeline Soler MD LAB BLOOD ORDERABLES F inal Result Performing Organization Address City/[facility] Co de Phone Number [facility] Department [place] [address] * Troponin I high-sensitivity 2-hour (05/21/2024 11:09 PM LINE CONSTRUCTION SUPERVISOR) Trop I hs 5 <=17 ng/L Comment: Interpretive Data For further hscTnI resources including the diagnostic algorithm and an aid in interpretation, copy and paste this link: https://bjhlab.testcatalog.org/show/hsTrop-1 Current Interpretive Data last revised 2019. Trop I hs delta See Comment ng/L MARY JANE [facility] Comment:Inappropriate collec tion time to report a delta. Trop I hs pct delta See Comment % [facility] Comment:Inappropriate collec tion time to report a delta. Trop I hs interp See Comment [facility] Comment:Inappropriate collec tion time to report a delta. Blood 05/21/2024 11:0 9 PM LINE CONSTRUCTION SUPERVISOR 05/21/2024 11:26 PM LINE CONSTRUCTION SUPERVISOR Cira Castro MD LAB BLOOD ORDERABL ES Final Result Performing Organization Address [facility] Co de Phone Number [facility] Department [place] [address] * (ABNORMAL) Urinalysis reflex to microscopic and culture Urine (05/21/2024 11:09 PM LINE CONSTRUCTION SUPERVISOR) Color, ur Yellow Yellow Clarity, ur Clear Clear [facility] Specific gravity, ur 1.025 1.003 - 1.030 [facility] pH, urine 6.0 [facility] Comment: Interpretive Data U rine pH is affected by diet, medications, systemic acid-base disturbances, and renal tubular function. pH may affect urinary stone formation. For example, urine pH below 6.0 may help reduce the tendency for calcium phosphate stones and pH greater than 6.0 may reduce the tendency for uric acid stone formation. Source: [facility] Current Interpretive Data was last revised on 2017 Protein, ur ql 1+(A) Negative [facility] Glucose, ur ql Negative Negative [facility] Ketones, ur Negative Negative [facility] Bilirubin, ur Negative Negative [facility] Blood, ur Trace(A) Negative [facility] Urobilinogen, ur <2.0 <2.0 mg/dL [facility] Nitrite, ur Positive(A) Negative [facility] Leukocyte esterase, ur 1+(A) Negative [facility] UA reflex comment Reflex to microscopic UA will be performed. [facility] Urine 05/21/2024 11:0 9 PM LINE CONSTRUCTION SUPERVISOR 05/21/2024 11:22 PM LINE CONSTRUCTION SUPERVISOR Angeline Soler MD LAB MICROBIOLOGY - GEN ERAL ORDERABLES Final Result [facility] One [facility] Department [place] [address] * Respiratory pathogen panel Nasopharyngeal (05/21/2024 11:09 PM LINE CONSTRUCTION SUPERVISOR) Pathologist [facility] Influenza A RNA Not Detected Not Detected Influenza B RNA Not Detected Not Detected [facility] RSV RNA Not Detected Not Detected [facility] COVID-19 RNA Not Detected Not Detected [facility] Coronavirus 229E RNA Not Detected Not Detected [facility] Coronavirus HKU1 RNA Not Detected Not Detected [facility] Coronavirus NL63 RNA Not Detected Not Detected [facility] Coronavirus OC43 RNA Not Detected Not Detected [facility] Adenovirus DNA Not Detected Not Detected [facility] Metapneumovirus RNA Not Detected Not Detected [facility] Rhinovirus/Enterov irus RNA Not Detected Not Detected [facility] Parainfluenza 1 RNA Not Detected Not Detected [facility] Parainfluenza 2 RNA Not Detected Not Detected [facility] Parainfluenza 3 RNA Not Detected Not Detected [facility] Parainfluenza 4 RNA Not Detected Not Detected [facility] B. pertussis DNA Not Detected Not Detected [facility] B. parapertussis DNA Not Detected Not Detected [facility] C. pneumoniae DNA Not Detected Not Detected [facility] M. pneumoniae DNA Not Detected Not Detected [facility] Nasopharyngeal 05/21/2024 11 :09 PM LINE CONSTRUCTION SUPERVISOR 05/22/2024 4:48 AM LINE CONSTRUCTION SUPERVISOR Narrative [facility] - 05/22/2024 5:55 AM LINE CONSTRUCTION SUPERVISOR Is the Patient experiencing symptoms consistent with COVID?->No Surveillance testing for transplant patient?->No Interpretive Data The Firmex FilmArray Respiratory Panel (RP2.1) assay is a [...] assay has FDA clearance for testing of PROCUREMENT INTERN swabs. The performance of additional specimen types has been assessed by the performing laboratory. The performance characteristics of this assay have been determined by [facility] Infectious Disease [facility]. Current interpretive data was last revised on 22. Angeline Soler MD LAB MICROBIOLOGY - GEN ERAL ORDERABLES Final Result Performing Organization Address [facility] Co de Phone Number [facility] Department [place] [address] * (ABNORMAL) Urinalysis, microscopic only (05/21/2024 11:09 PM LINE CONSTRUCTION SUPERVISOR) WBC, ur 11-20(A) 0 - 5 /HPF RBC, ur 3-5(A) 0 - 2 /HPF [facility] Epithelial cells, squamous, ur 1-5 0 - 5 /HPF [facility] Bacteria, ur 3+(A) [facility] Yeast, ur Trace(A) [facility] Mucous, ur Present(A) [facility] Culture Reflex Comment Reflex to urine culture will be performed. [facility] Urine 05/21/2024 11:0 9 PM LINE CONSTRUCTION SUPERVISOR 05/21/2024 11:21 PM LINE CONSTRUCTION SUPERVISOR Angeline Soler MD LAB URINE ORDERABLES F inal Result Performing Organization Address [facility] Co de Phone Number [facility] [place] [address] * (ABNORMAL) Urine culture Urine (05/21/2024 11:09 PM LINE CONSTRUCTION SUPERVISOR) Report Amended Report - Complete: Greater than or equal to 100,000 colonies/mL of Escherichia coli Plus growth of clinically insignificant bacterial yesenia. (.) Organism ESCHERICHIA COLI [facility] Organism PLUS GROWTH OF CLINICALLY INSIGNIFICANT YESENIA. [facility] Urine 05/21/2024 11:0 9 PM LINE CONSTRUCTION SUPERVISOR 05/22/2024 2:40 AM LINE CONSTRUCTION SUPERVISOR Narrative [facility] - 05/25/2024 10:36 AM LINE CONSTRUCTION SUPERVISOR Urine culture reflexed based upon urinalysis results. Testing performed by [facility] Microbiology Laboratory ([phone]) Organism Antibiotic Method Susceptibility Escherichia coli Ampicillin [...] Edited Result - Final Performing Organization Address City/[facility]/ZIP Co de Phone Number [facility] Department [place] [address] * POCT glucose (05/21/2024 8:55 PM LINE CONSTRUCTION SUPERVISOR) Glucose, POC 139 70 - 199 mg/dL Blood 05/21/2024 8:55 PM LINE CONSTRUCTION SUPERVISOR 05/21/2024 8:55 PM LINE CONSTRUCTION SUPERVISOR us Notinfile Unknown LAB POCT ORDERABLES - DEVICE F inal Result Performing Organization Address [facility]/[place] [address] * Troponin I high-sensitivity 4-hour (05/21/2024 7:26 PM LINE CONSTRUCTION SUPERVISOR) [facility] Trop I hs 4 <=17 ng/L Comment: Interpretive Data For further hscTnI resources including the diagnostic algorithm and an aid in interpretation, copy and paste this link: https://FrienditePlus.[employer].org/show/hsTrop-1 Current Interpretive Data last revised 2019. Trop I hs delta -1 ng/L [facility] Trop I hs interp Insignificant [facility] Blood 05/21/2024 7:26 PM LINE CONSTRUCTION SUPERVISOR 05/21/2024 7:37 PM LINE CONSTRUCTION SUPERVISOR us Cira Castro MD LAB BLOOD ORDERABL ES Final Result Performing Organization Address [facility] Co de Phone Number [facility] [place] [address] * Troponin I high-sensitivity series (baseline, 2hr, 4hr, 6hr) (05/21/2024 4:20 PM LINE CONSTRUCTION SUPERVISOR) [facility] Trop I hs 5 <=17 ng/L Comment: Interpretive Data For further hscTnI resources including the diagnostic algorithm and an aid in interpretation, copy and paste this link: https://FrienditePlus.[place].org/show/hsTrop-1 Current Interpretive Data last revised 2019. Blood 05/21/2024 4:20 PM LINE CONSTRUCTION SUPERVISOR 05/21/2024 4:50 PM LINE CONSTRUCTION SUPERVISOR us Jimmie Zavala MD LAB BLOOD ORDERABLES Final Resul t Performing Organization Address City/[facility]/ZIP Co de Phone Number [facility] [place] [address] * eGFR (05/21/2024 4:20 PM LINE CONSTRUCTION SUPERVISOR) [facility] eGFR >90 >=60 mL/min/1. 73 m2 Comment: [...] last reviewed 2021. Blood 05/21/2024 4:20 PM LINE CONSTRUCTION SUPERVISOR 05/21/2024 4:50 PM LINE CONSTRUCTION SUPERVISOR us Jimmie Zavala MD LAB BLOOD ORDERABLES Final Resul t [facility] Department of Laboratories [place], [place] [id number] * (ABNORMAL) Differential, auto (05/21/2024 4:20 PM LINE CONSTRUCTION SUPERVISOR) Pathologist [facility] Neutrophil abs 8.0(H) 1.5 - 6.5 K/cumm Imm gran abs 0.0 0.0 - 0.1 K/cumm [facility] Lymphocyte abs 2.4 0.8 - 3.3 K/cumm [facility] Monocyte abs 0.8 0.2 - 0.8 K/cumm [facility] Eosinophil abs 0.2 0.0 - 0.5 K/cumm [facility] Basophil abs 0.0 0.0 - 0.1 K/cumm [facility] Neutrophil pct 69.4 % [facility] Comment: Interpretive [...] on 2017. Lymphocyte pct 21.4 % [facility] Comment: Interpretive Data Percent cell count reference ranges are not reported, since discordance with absolute values may lead to misinterpretation of CBC data. Current Interpretive Data was last revised on 2017. Monocyte pct 6.7 % [facility] Comment: Interpretive Data Percent cell count reference ranges are not reported, since discordance with absolute values may lead to misinterpretation of CBC data. Current Interpretive Data was last revised on 2017. Eosinophil pct 1.8 % [facility] Comment: Interpretive Data Percent cell count reference ranges are not reported, since discordance with absolute values may lead to misinterpretation of CBC data. Current Interpretive Data was last revised on 2017. Basophil pct 0.3 % [facility] Comment: Interpretive Data Percent cell count reference ranges are not reported, since discordance with absolute values may lead to misinterpretation of CBC data. Current Interpretive Data was last revised on 2017. Blood 05/21/2024 4:20 PM LINE CONSTRUCTION SUPERVISOR 05/21/2024 4:50 PM LINE CONSTRUCTION SUPERVISOR us Jimmie Zavala MD LAB BLOOD ORDERABLES Final Resul t [facility] Department [place] [address] * (ABNORMAL) CBC with auto differential (05/21/2024 4:20 PM LINE CONSTRUCTION SUPERVISOR) WBC 11.4(H) 3.8 - 9.9 K/cumm Hgb 14.0 11.9 - 15.5 g/dL [facility] Hct 43.6 35.6 - 45.5 % [facility] Plt 286 150 - 400 K/cumm [facility] MPV 9.9 9.1 - 12.3 fL [facility] RBC 4.83 3.90 - 5.20 M/cumm [facility] MCV 90.3 81.3 - 96.4 fL [facility] MCH 29.0 27.1 - 33.3 pg [facility] MCHC 32.1(L) 32.3 - 35.7 g/dL [facility] RDW CV 13.6 11.1 - 14.9 % [facility] RDW SD 45.6 35.7 - 48.1 fL [facility] NRBC abs 0.00 0.00 - 0.01 K/cumm [facility] Blood Venous blood specimen / Unknown 05/21/2024 4:20 PM LINE CONSTRUCTION SUPERVISOR 05/21/2024 4:50 PM LINE CONSTRUCTION SUPERVISOR us Jimmie Zavala MD LAB BLOOD ORDERABLES Final Resul t Performing Organization Address City/[facility] Co de Phone Number [facility] [place] [address] * (ABNORMAL) Hemoglobin A1c (05/21/2024 4:20 PM LINE CONSTRUCTION SUPERVISOR) Hgb A1C 8.7(H) 4.0 - 5.6 % Estimated Average Glucose 203 mg/dL [facility] Comment: The ADA recommends reporting an estimated Average Glucose (eAG) with all Hemoglobin A1c results using the equation derived from a study of 507 normal and diabetic adults. Minority populations were underrepresented and children were not included. (Diabetes Care 2020; 43(S1): S66-S76). The eAG is not equivalent to a fasting glucose. Blood 05/21/2024 4:20 PM LINE CONSTRUCTION SUPERVISOR 05/21/2024 4:55 PM LINE CONSTRUCTION SUPERVISOR us Leo Henry MD LAB BLOOD ORDERABLES Final Result Performing Organization Address City/[facility]/ZIP Co de Phone Number [facility] [employer] [place], [place] [id number] * (ABNORMAL) Lipid panel (05/21/2024 4:20 PM LINE CONSTRUCTION SUPERVISOR) Cholesterol 205(H) 30 - 199 mg/dL Comment: [...] revised on 2017. Triglycerides 92 <=149 mg/dL [facility] Comment: Interpretive Data Ages < or [...] on 2017. HDL 55 >=40 mg/dL [facility] Comment: Interpretive Data Ages < or [...] 2017. LDL, calculated 134(H) <=129 mg/dL [facility] Comment: Interpretive Data Ages < or [...] on 2023. Non-HDL Cholesterol 150 mg/dL [facility] Comment: Interpretive Data Ages < or [...] revised on 2017. Chol/HDL ratio 4 [facility] Blood 05/21/2024 4:20 PM LINE CONSTRUCTION SUPERVISOR 05/21/2024 4:50 PM LINE CONSTRUCTION SUPERVISOR Narrative [facility] - 05/22/2024 4:17 PM LINE CONSTRUCTION SUPERVISOR Reflex us Leo Henry MD LAB BLOOD ORDERABLES Final Result [facility] Department [place] [address] * Comprehensive metabolic panel (05/21/2024 4:20 PM LINE CONSTRUCTION SUPERVISOR) Sodium 140 135 - 145 mmol/L Potassium, pl 4.3 3.3 - 4.9 mmol/L [facility] Chloride 100 97 - 110 mmol/L [facility] CO2 29 22 - 32 mmol/L [facility] Anion gap 11 2 - 15 mmol/L [facility] BUN 14 6 - 25 mg/dL [facility] Creatinine 0.63 0.60 - 1.10 mg/dL [facility] Glucose 119 70 - 199 mg/dL [facility] Comment: Interpretive Data Fasting glucose [...] Calcium 10.0 8.5 - 10.3 mg/dL [facility] Bilirubin, total 0.7 0.1 - 1.2 mg/dL [facility] Protein, pl 8.5 6.5 - 8.5 g/dL [facility] Albumin 3.9 3.5 - 5.0 g/dL [facility] Alk phos 83 40 - 130 Units/L [facility] ALT 23 7 - 45 Units/L [facility] AST 22 10 - 45 Units/L [facility] Blood 05/21/2024 4:20 PM LINE CONSTRUCTION SUPERVISOR 05/21/2024 4:50 PM LINE CONSTRUCTION SUPERVISOR us Jimmie Zavala MD LAB BLOOD ORDERABLES Final Resul t [facility] Department [place] [address] * XR Chest Pa Lateral 2 Views (05/21/2024 2:23 PM LINE CONSTRUCTION SUPERVISOR) Anatomical Region Laterality Modality Body, Chest N/A Computed Radiogr aphy 05/21/2024 2:28 PM LINE CONSTRUCTION SUPERVISOR Impressions 05/21/2024 2:36 PM LINE CONSTRUCTION SUPERVISOR The current study is compared with the [...] Jaime Neves M.D. Narrative 05/21/2024 2:36 PM LINE CONSTRUCTION SUPERVISOR EXAMINATION: 2 view chest radiograph Procedure Note [...] Result * POCT glucose (05/21/2024 1:39 PM LINE CONSTRUCTION SUPERVISOR) [facility] Glucose, POC 113 70 - 199 mg/dL Blood 05/21/2024 1:39 PM LINE CONSTRUCTION SUPERVISOR 05/21/2024 1:39 PM LINE CONSTRUCTION SUPERVISOR us Notinfile Unknown LAB POCT ORDERABLES - DEVICE F inal Result [facility] Department [place] [address] * ECG 12-LEAD (05/21/2024 1:36 PM LINE CONSTRUCTION SUPERVISOR) Narrative [facility] - 05/21/2024 1:36 PM LINE CONSTRUCTION SUPERVISOR Gil Mcgrath MD 05/21/2024 1:37 PM ECG [...] Zavala MD ECG ORDERABLES Final Result [facility] * US Axillary Breast Left (05/21/2024 12:13 PM LINE CONSTRUCTION SUPERVISOR) Anatomical Region Laterality Modality Upper Extremities Left Ultrasound 05/21/2024 12:2 3 PM LINE CONSTRUCTION SUPERVISOR Impressions 05/21/2024 12:23 PM LINE CONSTRUCTION SUPERVISOR 1. Limited ultrasound due to extensive edema [...] Alicia Wilcox M.D. Narrative 05/21/2024 12:23 PM LINE CONSTRUCTION SUPERVISOR EXAMINATION: LEFT AXILLARY ULTRASOUND HISTORY: Patient is [...] culture Urine, clean voided (05/14/2024 4:50 PM LINE CONSTRUCTION SUPERVISOR) Color, ur Straw Yellow Clarity, ur Clear Clear [facility] Specific gravity, ur 1.025 1.003 - 1.030 [facility] pH, urine 5.5 [facility] Comment: Interpretive Data U rine pH is affected by diet, medications, systemic acid-base disturbances, and renal tubular function. pH may affect urinary stone formation. For example, urine pH below 6.0 may help reduce the tendency for calcium phosphate stones and pH greater than 6.0 may reduce the tendency for uric acid stone formation. Source: [facility] ScalingData Current Interpretive Data was last revised on 2017 Protein, ur ql Trace Negative [facility] Glucose, ur ql Negative Negative [facility] Ketones, ur Negative Negative [facility] Bilirubin, ur Negative Negative [facility] Blood, ur Trace(A) Negative [facility] Urobilinogen, ur <2.0 <2.0 mg/dL [facility] Nitrite, ur Negative Negative [facility] Leukocyte esterase, ur Negative Negative [facility] UA reflex comment Reflex to microscopic UA will be performed. [facility] Urine, clean voided 05/14/2024 4:50 PM LINE CONSTRUCTION SUPERVISOR 05/14/2024 7:18 PM LINE CONSTRUCTION SUPERVISOR Khris Arthur MD LAB MICROBIOLOGY - G ENERAL ORDERABLES Final Result [facility] Department [place] [address] * (ABNORMAL) Urinalysis, microscopic only (05/14/2024 4:50 PM LINE CONSTRUCTION SUPERVISOR) WBC, ur 0-5 0 - 5 /HPF RBC, ur 0-2 0 - 2 /HPF [facility] Epithelial cells, squamous, ur 1-5 0 - 5 /HPF [facility] Bacteria, ur Trace(A) [facility] Mucous, ur Present(A) [facility] Culture Reflex Comment Reflex conditions for urine culture (WBC >10) not met. [facility] Urine, clean voided 05/14/2024 4:50 PM LINE CONSTRUCTION SUPERVISOR 05/14/2024 7:18 PM LINE CONSTRUCTION SUPERVISOR us Khris Arthur MD LAB URINE ORDERABLES Final Result [facility] Department [place] [address] * XR Ribs Left 2 Views (05/14/2024 4:44 PM LINE CONSTRUCTION SUPERVISOR) Anatomical Region Laterality Modality Rib, Chest Left Digital Radiogra phy 05/14/2024 4:54 PM LINE CONSTRUCTION SUPERVISOR Impressions 05/14/2024 4:54 PM LINE CONSTRUCTION SUPERVISOR 1. No displaced left rib fracture. Electronically signed by: Santiago Gan D.O. Narrative 05/14/2024 4:54 PM LINE CONSTRUCTION SUPERVISOR EXAMINATION: XR RIBS LEFT 2 VIEWS HISTORY: [...] Bone mineral density was performed on a HoloHuddler Discovery Densitometer. Based on machine cross-calibration and [...] by the International Society of Clinical Densitometry. [id number] Khris Arthur MD IMG DXA PROCEDURES F [...] agrees with it. ACC# Date Time Exam [id number] Aug 19, 2016 14:27:00 [facility] [id number] Diag Mamm, inc CAD, unilat L Technologist(s): Carla Harris; ; [id number] Aug 19, 2016 15:39:00 [facility] [id number] Breast US unilateral, ltd L ACC# Date Time Exam [id number] Aug 19, 2016 14:27:00 [facility] [id number] Diag Mamm, inc CAD, unilat L Technologist(s): Carla Harris; ; [id number] Aug 19, 2016 15:39:00 [facility] 99411 Breast US unilateral, ltd L EXAMINATION: LEFT [...] SARABIA M.D. on Aug 19 2016 4:20P [id number] Procedure Note Miscellaneous, Not In File / Provider, MD Tyler - 09/17/2016 ANTHONY SARABIA M.D. JUDY RINCON M.D. FINAL REPORT The radiology attending physician has personally reviewed this study, and has reviewed and/or edited this written report and agrees with it. ACC# Date Time Exam [id number] Aug 19, 2016 14:27:00 [facility] 80721 Diag Mamm, inc CAD, unilat L Technologist(s): Carla Harris; ; [id number] Aug 19, 2016 15:39:00 [facility] 55319 Breast US unilateral, ltd L ACC# Date Time Exam [id number] Aug 19, 2016 14:27:00 [facility] 34250 Diag Mamm, inc CAD, unilat L Technologist(s): Carla Harris; ; [id number] Aug 19, 2016 15:39:00 [facility] 52497 Breast US unilateral, ltd L EXAMINATION: LEFT [...] SARABIA M.D. on Aug 19 2016 4:20P [id number] us Not In File Miscellaneous IMG MAMMO PROCEDURES F inal Result from Last 3 Months or Most Recently Relevant to Health Maintenance Insurance [facility] UHC MEDICARE ADVANTAGE [facility] MEDICARE ADVANTAGE [facility] MEDICARE ADVANTAGE Advance Directives For more information, please contact: [phone] Documents on File Type Date Recorded Patient Oakes Machine Operator Expl anation ADVANCE DIRECTIVE 12/23/2021 2:49 PM Power of Client Server Programmer-Medical ADVANCE DIRECTIVE 12/23/2021 2:49 PM Living Will [...] First Alternate Health Care Agent Care Teams Product Manager Relationship Specialty Start Date End Date Justen Gale MD [address] [address] PCP - General 10/09/17 Liu Jerez MD Consulting Physician Gastroenterology 07/28/17 [place] [address] [facility] [address] [place] [address] Consulting Physician Pulmonary Disease 08/03/17 Khris Arthur MD [address] [facility] [address] [place] [address] Medical Oncologist/Chairperson Anesthesiology Medical Oncology 10/23/17 [place] [address] [facility] [address] [place] [address] Surgeon Orthopedic Surgery 10/23/17 [place] [address] [facility] [address] [place] [address] Consulting Physician Pain Management 10/23/17 [place] [address] [facility] [address] [place] [address] Referring Physician General Surgery 01/26/18 [place] [address] [facility] [address] [place] [address] Consulting Physician Neurology 01/26/18
--- OUTSIDE RECORDS SUMMARY | 2024-07-22 02:25 | XMS_ITS | Encounter Summary ---
Author Organization [facility] Address [address] [place] [address] Phone Care Team Providers Care Distribution Warehouse Manager Name Role Phone Justen Gale MD Primary Care Provider [phone] David Roberts APRN, [facility] [employer] Unavailable [phone] Annel Rod MD Unavailable Reason for Visit * Reason Comments Medication Refill Encounter Details Date Type Department Care Team (Late st Contact Info) Description 07/12/2022 Refill [facility] - Family Medicine [facility] [address] [place] [id number] Justen Gale MD [address] [address] Medication Refill Social History Tobacco Use Types [...] 07/05/22 Office Visit Pili Elkins APRN, NETTA [facility] [place] 05/02/22 Office Visit Justen Gale MD [facility] [place] 03/03/22 Office Visit Pili Elkins APRN, [facility] [place] 01/03/22 Office Visit Dannielle Berg PAC [facility] [place] 12/07/21 Office Visit Pili Elkins APRN, [facility] [place] 11/09/21 Office Visit Pili Elkins APRN, NETTA [facility] [place] 10/08/21 Office Visit Angelito Alegria APRN, NETTA [facility] [place] 08/30/21 Office Visit [facility] Showing recent visits within past [...] documented as of this encounter Care Teams Distribution Warehouse Manager Relationship Specialty Start Date End Date Justen Gale MD [address] [facility] [address] [place] [address] PCP - General Family Medicine 10/17/17 David Roberts APRN, [employer] [facility] [address] [place] [address] Nurse Practitioner Advanced Practice Nurse 01/31/22 Annel Rod MD [address] [facility] [address] [place] [address] Consulting Physician Endocrinology 07/01/22 documented as of this encounter
--- OUTSIDE RECORDS SUMMARY | 2024-07-22 02:25 | XMS_ITS | Encounter Summary ---
Author Organization [facility] Address [address] [place] [address] Phone Care Team Providers Care Gut Carrier Name Role Phone Justen Gale MD Primary Care Provider [phone] David Rboerts APRN, MD PHYSICIAN DERMATOLOGIST Unavailable [phone] Annel Rod MD Unavailable Reason for Visit * Reason Comments Medication Refill Encounter Details Date Type Department Care Team (Late st Contact Info) Description 04/13/2023 Refill [facility] [place] #2 [place] [address] Annel Rod MD #[address] [address] Medication Refill Social History Tobacco [...] Jennifer Wang, RN - 04/14/2023 10:00 AM CHEF CONCIERGE Requested Prescriptions Pending Prescriptions Disp Refills ??? Continuous Blood Gluc Sensor (FreeStyle Eileen 2 Sensor) Misc [Pharmacy Med Name: FREESTYLE EILEEN 2 SENSOR] 6 Each 1 Sig: APPLY 1 SENSOR AND WEAR FOR 14 DAYS TO CHECK BLOOD SUGAR Next appt: 05/30/2023 CONCIERGE documented in this encounter Plan of Treatment Not on file documented as of this encounter Visit Diagnoses Not on filedocumented in this encounter Additional Health Concerns Assessment Noted Time PHQ-9 Depression Total Score: 8 01/18/20 23 2:24 PM CDT documented as of this encounter Care Teams Gut Carrier Relationship Specialty Start Date End Date Justen Gale MD #[address] [address] PCP - General Family Medicine 10/17/17 David Roberts APRN, NETTA #2 [place] [address] Nurse Practitioner Advanced Practice Nurse 01/31/22 Annel Rod MD #[address] [address] Consulting Physician Endocrinology 07/01/22 documented as of this encounter
--- OUTSIDE RECORDS SUMMARY | 2024-07-22 02:25 | XMS_ITS | Clinical Summary ---
Author Organization [facility] Address [address] [place] [address] Phone Care Team Providers Care Industrial Gas Service Helper Name Role Phone Justen Gale MD Primary Care Provider [phone] David Roberts APRN, AUTOMOTIVE WELDER Unavailable [phone] Annel Rod MD Unavailable Allergies Active Allergy [...] Overview: Added automatically from request for surgery [id number] Lymphedema of left upper extremity 08/09/2016 Pulmonary embolism 08/09/2016 Overview (11/09/2017): Last Assessment & Plan: On Rivaroxaban Arthralgia of ankle 01/26/2015 Cellulitis of breast 11/11/2014 Encounters Date Type Department Care Team Description 07/11/2024 Nurse Triage [address] [address] Justen Gale MD Toe Problem 06/14/2024 Nurse Triage [facility] [address] [place] [address] Justen Gale MD Urinary Incontinence; Urinary Problem 05/28/2024 Nurse Triage [facility] [address] [place] [address] Justen Gale MD Nausea; Fatigue 05/14/2024 Nurse Triage [facility] [address] [place] [address] Justen Gale MD Arm Swelling; Arm Pain 05/13/2024 Results Follow-Up [facility] #2 [place] [address] Justen Gale MD 04/23/2024 MyChart RX Renewal [facility] #2 [place] [address] Annel Rod MD Medication Renewal Declined 04/23/2024 MyChart RX Renewal [facility] #[address] [place] [address] Justen Gale MD Medication Renewal Request from Last 3 Months Immunizations Immunization Administration Dates Next Due Covid-19 Vaccine, Vector-nr, Rs-ad26, Pf, 0.5 Ml (Apruve/J&myJambi) 06/29/2020 Influenza Vaccine greater than 3 yrs [...] CDT CT - ABDOMEN/PELVIS 06/21/2024 12:00 AM OIL HEATER OPERATOR XR - LOWER EXTREMITY 06/20/2024 12:00 AM OIL HEATER OPERATOR PAIN CONSULT 05/20/2024 12:00 AM OIL HEATER OPERATOR XR - CHEST 05/15/2024 12:00 AM OIL HEATER OPERATOR URINALYSIS (UA) RANDOM 12:00 AM OIL HEATER OPERATOR XR - CHEST 05/14/2024 12:00 AM OIL HEATER OPERATOR EXTERNAL GASTROENTEROLOGY REFERRAL Less Than 1 week 05/07/2024 12:00 AM OIL HEATER OPERATOR Nausea and vomiting, unspecified vomiting type Pain of upper abdomen CMP (COMPREHENSIVE METABOLIC PANEL) 12/04/2023 12:00 AM CDT HEMOGLOBIN, A1C 10/02/2023 12:00 AM CDT HUMAN PAPILLOMA VIRUS (HPV) Routine 07/05/2022 2:24 PM CDT Encounter for gynecological examination with abnormal finding Encounter for screening for human papillomavirus (HPV) PATHOLOGY CYTOLOGY RIB PULLER Routine 2:24 PM CDT Encounter for gynecological [...] Performing Organization Address [facility] de Phone Number SCAN * CT - ABDOMEN/PELVIS (06/21/2024 12:00 AM OIL HEATER OPERATOR) 06/21/2024 us Provider Scan IMG CT ORDERABLES Final Result Performing Organization Address [facility] Co de Phone Number SCAN * PAIN CONSULT (05/20/2024 12:00 AM OIL HEATER OPERATOR) 05/20/2024 us Justen Gale MD GENERIC SCAN ORDERS CONSULT F inal Result Performing Organization Address [facility] Co de Phone Number SCAN * XR - CHEST (05/15/2024 12:00 AM OIL HEATER OPERATOR) Only the most recent of2 resultswithin the time period is included. 05/15/2024 us Provider Scan IMG DIAGNOSTIC ORDERABLES Final Result Performing Organization Address [facility] de Phone Number SCAN * URINALYSIS (UA) RANDOM (05/14/2024 12:00 AM OIL HEATER OPERATOR) 05/14/2024 us Provider Scan URINE ORDERABLES Final Result Performing Organization Address [facility] de Phone Number SCAN * EXTERNAL GASTROENTEROLOGY REFERRAL (05/07/2024 12:00 AM OIL HEATER OPERATOR) 05/07/2024 us Justen Gale MD OUTPT REFERRALS EXT/INT Final Result Performing Organization [facility] de Phone Number SCAN * CMP (COMPREHENSIVE METABOLIC PANEL) (12/04/2023 12:00 AM CDT) 12/04/2023 us Provider Scan CHEMISTRY ORDERABLES Final Resul t Performing Organization Address [facility] de Phone Number SCAN * HEMOGLOBIN, A1C (10/02/2023 12:00 AM CDT) HGB-A1C 7.8 SCAN 10/02/2023 us Provider Scan CHEMISTRY ORDERABLES Final Resul t Performing Organization Address [facility] de Phone Number SCAN * PATHOLOGY CYTOLOGY RIB PULLER (07/05/2022 2:24 PM CDT) SPECIMEN ADEQUACY A scant cellular component is noted. Scant cellularity is likely due to presence of lubricant. 07/08/2022 8:38 AM CDT [facility] DESCRIPTIVE DIAGNOSIS NEGATIVE FOR INTRAEPITHELIAL LESIONS OR MALIGNANCY. 07/08/2022 8:38 AM CDT [facility] Atrophic hormonal pattern. 07/08/2022 8:38 AM CDT [facility] Automated Examination This sample was not evaluated by the automated imaging and review system (Thinprep Imaging System, [employer], [place], [place] due to technical and / or biologic factor(s). The case was screened, reviewed, and finalized by a marketing communications associate and / or pathologist. 07/08/2022 8:38 AM CDT [facility] Disclaimer The PAP smear is a screening [...] unless clinically indicated. 07/08/2022 8:38 AM CDT [facility] Other CERVIX UTERI STRUCTURE / Unknown Non-Phlebotomy Collection / Unknown 07/05/2022 2:24 PM CDT 07/05/2022 2:24 PM CDT us Pili Elkins APRN, CNP PATHOLOGY/CYTOLOGY O RDERABLES Final Result Performing Organization Address City/State/[facility] Co de Phone Number [facility] [address] [place] [address], * HUMAN PAPILLOMA VIRUS (HPV) (07/05/2022 2:24 PM CDT) HPV OTHER HIGH RISK TYPES, PCR NEGATIVE NEGATIVE 07/06/2022 2:37 PM CDT [facility] Comment: The following Other High Risk types [...] 16 NEGATIVE NEGATIVE 07/06/2022 2:37 PM CDT [facility] Comment: A negative high-risk HPV result does [...] 18 NEGATIVE NEGATIVE 07/06/2022 2:37 PM CDT [facility] Comment: A negative high-risk HPV result does [...] OR DIAGNOSTIC SCREENING 07/06/2022 2:37 PM CDT [facility] Other Non-Phlebotomy Collection / Unknown 07/05/2022 2:24 PM CDT 07/05/2022 2:24 PM CDT Narrative [facility] - 07/06/2022 2:37 PM CDT Performed by Real-Time Polymerase Chain Reaction (PCR) on the Ronnie Vinay 4800. This assay has been validated for use with post-aliquot samples from the [employer] T5000 processor. Pili Elkins APRN, CNP LAB SEND OUTS Deann bowman Result [facility] [address] [place] [address], [facility] [address] [place] [address] * HM COLONOSCOPY (01/09/2020) us Genaro Jensen DO PROCEDURE/MINOR SURGICAL ORDERA BLES Final Result * AMB REFERRAL TO PODIATRY (08/13/2019) Alvarez Mensah MD OUTPATIENT REFERRALS Final Res ult * POCT STOOL, OCCULT BLOOD, DIAGNOSTIC (09/07/2018 1:20 PM CDT) OCCULT BLOOD, STOOL Negative Negative, Other POC HEMOCULT CONTROL Music Specialist Pass 09/07/2018 1:20 PM CDT Pili Elkins APRN, AUTOMOTIVE WELDER POINT OF CARE TESTIN G (MANUAL) Final Result from Last 3 Months or Most Recently Relevant to Health Maintenance Insurance [facility]IC[id number] Care Teams Industrial Gas Service Helper Relationship Specialty Start Date End Date Justen Gale MD #[address] [address] PCP - General Family Medicine 10/17/17 David Roberts APRN, AUTOMOTIVE WELDER #2 [place] [address] Nurse Practitioner Advanced Practice Nurse 01/31/22 Annel Rod MD #[address] [address] Consulting Physician Endocrinology 07/01/22
--- OUTSIDE RECORDS SUMMARY | 2024-07-22 02:25 | XMS_ITS | Encounter Summary ---
Author Organization [facility] Address [address] [place] [address] Phone Care Team Providers Care Extension Educator Name Role Phone Justen Gale MD Primary Care Provider [phone] David Roberts APRN, PUBLIC TRANSPORTATION INSPECTOR Unavailable [phone] Annel Rod MD Unavailable Reason for Visit * Reason Comments Medication Refill Encounter Details Date Type Department Care Team (Late st Contact Info) Description 02/07/2020 Refill [facility] [address] [address] Justen Gale MD [address] [address] Medication Refill Social History Tobacco Use Types [...] documented as of this encounter Care Teams Extension Educator Relationship Specialty Start Date End Date Justen Gale MD #2 [facility] [address] [place] [address] PCP - General Family Medicine 10/17/17 David Roberts APRN, PUBLIC TRANSPORTATION INSPECTOR #2 [place] [address] Nurse Practitioner Advanced Practice Nurse 01/31/22 Annel Rod MD #2 [facility] [address] [place] [address] Consulting Physician Endocrinology 07/01/22 documented as of this encounter
--- OUTSIDE RECORDS SUMMARY | 2024-07-22 02:25 | XMS_ITS | Encounter Summary ---
Author Organization [facility] Address [address] [place] [address] Phone Care Team Providers Care Aluminum Hydroxide Process Operator Name Role Phone Justen Gale MD Primary Care Provider [phone] David Roberts APRN, BLOOD BANK ORDER CONTROL CLERK Unavailable [phone] Annel Rod MD Unavailable Reason for Visit * Reason Comments Medication Refill Encounter Details Date Type Department Care Team (Late st Contact Info) Description 08/07/2023 Refill [facility] - [place] #2 [place] [address] Annel Rod MD #[address] [address] Medication Refill Social History Tobacco [...] documented as of this encounter Care Teams Aluminum Hydroxide Process Operator Relationship Specialty Start Date End Date Justen Gale MD #2 [facility] [address] [place] [address] PCP - General Family Medicine 10/17/17 David Roberts APRN, NETTA #2 [place] [address] Nurse Practitioner Advanced Practice Nurse 01/31/22 Annel Rod MD #[address] [address] Consulting Physician Endocrinology 07/01/22 documented as of this encounter
--- OUTSIDE RECORDS SUMMARY | 2024-07-22 02:25 | XMS_ITS | Encounter Summary ---
Author Organization [facility] Address [address] [place] [address] Phone Care Team Providers Care Tray Packer Name Role Phone Justen Gale MD Primary Care Provider [phone] David Roberts APRN, QUILTING MACHINE HELPER Unavailable [phone] Annel Rod MD Unavailable Encounter Details Date Type Department Care Team (Late st Contact Info) Description 06/05/2020 [facility] [address] [place] [address] Pili Elkins APRN, QUILTING MACHINE HELPER #[address] [address] Frequency of micturition Social History [...] COVID-19? No / Unsure 2020 11:37 AM WIRE GALVANIZER documented as of this encounter Plan of Treatment Not on file documented as of this encounter Procedures Procedure Name Priority Date/Time Associated Diagnosis Comments URINALYSIS REFLEX IF INDICATED BY ABNORMAL RESULTS Routine 06/05/2020 4:45 PM WIRE GALVANIZER Frequency of micturition documented in this encounter Results * (ABNORMAL) URINALYSIS REFLEX IF INDICATED BY ABNORMAL RESULTS (06/05/2020 4:45 PM WIRE GALVANIZER) SPECIFIC GRAVITY 1.020 1.003 - 1.030 06/05/2020 5:19 PM WIRE GALVANIZER [facility] URINE PH 5.0 5.0 - 9.0 06/05/2020 5:19 PM WIRE GALVANIZER [facility] WBC ESTERASE Negative Negative 06/05/2020 5:19 PM WIRE GALVANIZER [facility] NITRITE Negative Negative 06/05/2020 5:19 PM [facility] PROTEIN, RANDOM URINE Negative Negative 06/05/2020 5:19 PM [facility] URINE GLUCOSE, QUAL Negative Negative 06/05/2020 5:19 PM [facility] URINE KETONES Negative Negative 06/05/2020 5:19 PM WIRE GALVANIZER [facility] UROBILINOGEN Normal Normal mg/dL 06/05/2020 5:19 PM [facility] URINE BILIRUBIN Negative Negative 5:19 PM [facility] URINE BLOOD 25 /uL(A) Negative leandro/ul 06/05/2020 5:19 PM [facility] URINALYSIS COLOR Yellow 06/05/19 5:19 PM [facility] URINALYSIS CLARITY Clear 06/05/2020 5:19 PM [facility] WBC (Urine) 0-5 Negative, 0-5 /hpf 06/05/2020 5:19 PM [facility] URINE RBC'S 3-5(A) Negative, 0-2 /hpf 06/05/2020 5:19 PM WIRE GALVANIZER [facility] EPITHELIAL CELLS Small amount /lpf 2020 5:19 PM WIRE GALVANIZER [facility] BACTERIA, URINE Few(A) Negative /hpf 06/05/2020 5:19 PM WIRE GALVANIZER [facility] Urine URINE SPECIMEN / Unknown Non-Phlebotomy Collection / Unknown 06/05/2020 4:45 PM WIRE GALVANIZER 06/05/2020 5:00 PM WIRE GALVANIZER us Pili Elkins APRN, CNP URINE ORDERABLES Fin al Result [facility]1 [place] [address] documented in this encounter Visit Diagnoses Diagnosis Frequency of micturition Urinary frequency documented in this encounter Additional Health Concerns Assessment Noted Time PHQ-9 Depression Total Score: 0 09/08/19 19 1:00 PM CDT documented as of this encounter Care Teams Tray Packer Relationship Specialty Start Date End Date Justen Gale MD #[address] [address] PCP - General Family Medicine 10/17/17 David Roberts APRN, QUILTING MACHINE HELPER #2 [place] [address] Nurse Practitioner Advanced Practice Nurse 01/31/22 Annel Rod MD #[address] [address] Consulting Physician Endocrinology 07/01/22 documented as of this encounter
--- OUTSIDE RECORDS SUMMARY | 2024-07-22 02:25 | XMS_ITS | Encounter Summary ---
Author Organization [facility] Address [address] [place] [address] Phone Care Team Providers Care Machine Installer Name Role Phone Justen Gale MD Primary Care Provider [phone] David Roberts APRN, CENTRAL SUPPLY ASSISTANT Unavailable [phone] Annel Rod MD Unavailable Reason for Visit * Reason Comments Medication Refill Encounter Details Date Type Department Care Team (Late st Contact Info) Description 02/07/2023 Refill [facility] #2 [place] [address] Pili Elkins APRN, CENTRAL SUPPLY ASSISTANT #[address] [address] Medication Refill Social History Tobacco [...] as of this encounter Care Teams Machine Installer Relationship Specialty Start Date End Date Justen Gale MD #2 [facility] [address] [place] [address] PCP - General Family Medicine 10/17/17 David Roberts APRN, CENTRAL SUPPLY ASSISTANT #2 [place] [address] Nurse Practitioner Advanced Practice Nurse 01/31/22 Annel Rod MD #2 [facility] [address] [place] [address] Consulting Physician Endocrinology 07/01/22 documented as of this encounter
--- OUTSIDE RECORDS SUMMARY | 2024-07-22 02:25 | XMS_ITS | Encounter Summary ---
Author Organization [facility] Address [address] [place] [address] Phone Care Team Providers Care Corporate Quality Manager Name Role Phone Justen Gale MD Primary Care Provider [phone] David Roberts APRN, STEAM CRANE OPERATOR Unavailable [phone] Annel Rod MD Unavailable Reason for Visit * Reason Comments Medication Refill Encounter Details Date Type Department Care Team (Late st Contact Info) Description 07/14/2022 Refill [facility] #2 [place] [address] Justen Gale MD #[address] [address] Medication Refill Social History Tobacco Use Types [...] documented as of this encounter Care Teams Corporate Quality Manager Relationship Specialty Start Date End Date Justen Gale MD #2 [facility] [address] [place] [address] PCP - General Family Medicine 10/17/17 David Roberts APRN, STEAM CRANE OPERATOR #2 [place] [address] Nurse Practitioner Advanced Practice Nurse 01/31/22 Annel Rod MD #2 [facility] [address] [place] [address] Consulting Physician Endocrinology 07/01/22 documented as of this encounter
--- OUTSIDE RECORDS SUMMARY | 2024-07-22 02:25 | XMS_ITS | Encounter Summary ---
Author Organization [facility] Address [address] [place] [address] Phone Care Team Providers Care Plastic Finisher Name Role Phone Liu Jerez MD Unavailable Albert Corbin MD Unavailable Justen Gale MD Primary Care Provider Khris Arthur MD Unavailable [phone] Ko Melendez MD Unavailable John Paul Moyer MD Unavailable [phone] Annel Rod MD Unavailable Anali MARSHALL MD, Carlos M. Unavailable [phone] Encounter Details Date Type Department Care Team [...] file Legal Sex Female 12:24 AM SPECIAL SERVICES DIRECTOR Gender Identity Not on file Sexual [...] COVID: Recovered 02/10/2022 02/10/2022 06/10/2022 3:05 AM SPECIAL SERVICES DIRECTOR Exposure, COVID-19 Comment:Added automatically based on COVID19 lab answers indicating exposure risk 02/11/2022 02/11/2022 02/15/2022 9:06 AM C DT COVID: Suspected 05/14/2022 05/14/2022 05/14/2022 10:41 AM SPECIAL SERVICES DIRECTOR COVID: Suspected 06/07/2022 06/07/2022 06/07/2022 12:28 PM SPECIAL SERVICES DIRECTOR COVID: Suspected 06/21/2022 06/21/2022 06/21/2022 2:12 AM SPECIAL SERVICES DIRECTOR COVID: Suspected 10/05/2022 10/05/2022 10/05/2022 7:40 PM CDT COVID: Suspected 01/04/2024 01/04/2024 01/04/2024 10:30 PM CDT COVID: Suspected 02/14/2024 02/14/2024 02/15/2024 12:36 AM CDT COVID: Suspected 07/01/2024 07/01/2024 07/01/2024 2:53 PM CDT COVID: Suspected 07/01/2024 07/01/2024 07/02/2024 3:05 AM CDT documented as of this encounter Care Teams Plastic Finisher Relationship Specialty Start Date End Date Justen Gale MD 2 [facility] [address] [place] [address] PCP - General 10/09/17 Liu Jerez MD Consulting Physician Gastroenterology 07/28/17 [place] [address] [facility] [address] [place] [address] Consulting Physician Pulmonary Disease 08/03/17 [place] [address] [place] [address] [address] [place] [address] Medical Oncologist/Drapery Cutter Medical Oncology 10/23/17 [place] [address] [address] Surgeon Orthopedic Surgery 10/23/17 [place] [address] [facility] [address] [place] [address] Consulting Physician Pain Management 10/23/17 [place] [address] [address] Referring Physician General Surgery 01/26/18 [place] [address] [facility] [address] [place] [address] Consulting Physician Neurology 01/26/18 documented as of this encounter
--- OUTSIDE RECORDS SUMMARY | 2024-07-22 02:25 | XMS_ITS | Encounter Summary ---
Author Organization [facility] Address [address] [place] [address] Phone Care Team Providers Care Hiv Cts Specialist Name Role Phone Justen Gale MD Primary Care Provider [phone] David Roberts APRN, MANAGER TRADE MARKETING Unavailable [phone] Annel Rod MD Unavailable Reason for Visit * Reason Comments Medication Refill Encounter Details Date Type Department Care Team (Late st Contact Info) Description 03/02/2023 Refill [facility] #2 [place] [phone] Justen Gale MD #[address] [address] Medication Refill Social History Tobacco Use Types [...] Tamika Villarreal RN - 03/02/2023 8:51 AM PULP TESTER Medication failed the protocol, provider to review [...] Dept 01/17/23 Office Visit Catrina Quiñonez MD [facility] 09/16/22 Office Visit Pili Elkins APRN, NETTA [facility] [place] 07/05/22 Office Visit Pili Elkins APRN, NETTA [facility] [place] 05/02/22 Office Visit Justen Gale MD [facility] 03/03/22 Office Visit Pili Elkins APRN, NETTA [facility] Showing recent visits within past 365 days and meeting all other requirements Future Appointments No visits were found meeting these conditions. Showing future appointments within next 90 days and meeting all other requirements TESTER documented in this encounter Plan of Treatment Not on file documented as of this encounter Visit Diagnoses Not on filedocumented in this encounter Additional Health Concerns Assessment Noted Time PHQ-9 Depression Total Score: 8 01/18/20 23 2:24 PM CDT documented as of this encounter Care Teams Hiv Cts Specialist Relationship Specialty Start Date End Date Justen Gale MD #[address] [address] PCP - General Family Medicine 10/17/17 David Roberts APRN, NETTA #[address] [place] [address] Nurse Practitioner Advanced Practice Nurse 01/31/22 Annel Rod MD #[address] [address] Consulting Physician Endocrinology 07/01/22 documented as of this encounter
--- OUTSIDE RECORDS SUMMARY | 2024-07-22 02:25 | XMS_ITS | Encounter Summary ---
Author Organization [facility] Address [address] [place] [address] Phone Care Team Providers Care Supervisor Kennel Name Role Phone Justen Gale MD Primary Care Provider [phone] David Roberts APRN, PSYCHOLOGICAL EXAMINER Unavailable [phone] Annel Rod MD Unavailable Reason for Visit * Reason Onset Date Comments Advice Only 11/21/2023 Encounter Details Date Type Department Care Team (Late st Contact Info) Description 11/21/2023 Telephone [facility] [address] [place] [address] Justen Gale MD #[address] [address] Advice Only Social History Tobacco Use Types [...] 11/21/2023 3:17 PM CDT RFC: Alejandra from [facility] is calling to state that patient [...] as of this encounter Care Teams Supervisor Kennel Relationship Specialty Start Date End Date Justen Gale MD #[address] [address] PCP - General Family Medicine 10/17/17 David Roberts APRN, NETTA #2 [place] [address] Nurse Practitioner Advanced Practice Nurse 01/31/22 Annel Rod MD #[address] [address] Consulting Physician Endocrinology 07/01/22 documented as of this encounter
[2024-07-22] MEDS: SODIUM CHLORIDE 0.9% IV 1,000 ML 999 ML IV CONT (02:26)
[2024-07-22] MEDS: HYDROmorphone HCL INJ (*CRX) 1 MG/ML SYR IV PUSH (02:26)
--- NOTE | 2024-07-22 02:32 | ED.GENADULT ---
HPI - General Adult General Chief complaint: Shortness of Breath/Dyspnea Stated complaint: Short of breath, weakness-Family has Pneumonia Time Seen by Provider: 07/22/24 02:03 History of Present Illness HPI narrative: This is a 69-year-old female presenting with flu-like symptoms. The last 2 weeks the patient has been having sinus congestion and cold symptoms. However yesterday she developed body aches, headaches, nausea without vomiting. She denies fevers chills chest pain or diarrhea. No urinary symptoms. Patient has multiple family members at home who are sick with similar symptoms. Patient has chronic pain and uses hydrocodone @ home. She cannot take NSAIDs due to Xarelto use. Related Data Home Medications ?Medication ?Instructions ?Recorded ?Confirmed ?Last Taken ?Type exemestane 25 mg tablet 25 mg PO HS 01/06/20 06/20/24 12/04/23 22:00 History insulin glargine 100 unit/mL (3 32 unit subcut QAM 01/06/20 06/20/24 12/04/23 11:00 History mL) subcutaneous pen (Lantus Solostar U-100 Insulin) ropinirole 5 mg tablet 5 mg PO HS 01/06/20 06/20/24 12/04/23 22:00 History insulin lispro 100 unit/mL 28 unit subcut TID 03/19/22 06/20/24 Unknown History subcutaneous pen (Humalog KwikPen (U-100) Insulin) oxybutynin chloride 15 mg 15 mg PO DAILY 11/06/22 06/20/24 12/04/23 11:00 History tablet,extended release 24 hr gabapentin 300 mg capsule 300 mg PO TID 06/25/23 06/20/24 12/04/23 22:00 History Allergies Allergy/AdvReac Type Severity Reaction Status Date / Time ceftriaxone Allergy Severe SOB Verified 07/10/24 14:53 cephalexin Allergy Severe Difficulty Verified 07/10/24 14:53 Breathing Cephalosporins Allergy Severe Difficulty Verified 07/10/24 14:53 Breathing lorazepam Allergy Severe Swelling Verified 07/10/24 14:53 trazodone Allergy Severe Swelling Verified 07/10/24 14:53 of Lip/Tongue/Throat metoclopramide Allergy Intermediate Other Verified 07/10/24 14:53 chlorhexidine Allergy Mild BLISTERING Verified 07/10/24 14:53 levofloxacin Allergy Mild Hives / Verified 07/10/24 14:53 Red Face ketorolac Allergy Itching Verified 07/10/24 14:53 latex Allergy Rash Verified 07/10/24 14:53 meropenem Allergy Rash Verified 07/10/24 14:53 nitrofurantoin Allergy Itching Verified 07/10/24 14:53 sulfamethoxazole (From Allergy Itching Verified 07/10/24 14:53 Sulfamethoxazole-Trimethoprim) trimethoprim (From Allergy Itching Verified 07/10/24 14:53 Sulfamethoxazole-Trimethoprim) oxycodone AdvReac Mild Vomiting Verified 07/10/24 14:53 amlodipine AdvReac Swelling Verified 07/10/24 14:53 lisinopril AdvReac Swelling Verified 07/10/24 14:53 pregabalin AdvReac Swelling Verified 07/10/24 14:53 reslizumab AdvReac Unknown Verified 07/10/24 14:53 PMFSH Past Medical History Medical History Chronic anticoagulation Overactive bladder Type 2 diabetes mellitus Deep venous thrombosis Irritable bowel syndrome Restless leg syndrome Obstructive sleep apnea on CPAP Congestive heart failure Chronic back pain COVID-19 Collagenous colitis Morbid obesity Breast cancer Depression Anxiety Peripheral neuropathy Kidney stone Pulmonary embolism positive for coagulation workup Multiple thyroid nodules Surgical History Surgical History History of umbilical hernia repair History of colonoscopy Status post insertion of spinal cord stimulator History of cystoscopy History of ureter stent History of cholecystectomy History of bilateral mastectomy History of esophagogastroduodenoscopy (EGD) History of right oophorectomy History of total right knee replacement History of cardiac catheterization Reportedly negative for coronary artery disease. Family History Family History Mother Diabetes mellitus Acute myocardial infarction Cerebrovascular accident Hypertension Congestive heart failure Father Prostate carcinoma Sibling Breast cancer Acute myocardial infarction Chronic obstructive pulmonary disease Social History Social History Social History: Surrogate medical decision maker: Jimmie Marques, spouse. Code status: Full code. Smoking packs per day: 0 Smoking cigarettes per day: 0.0 Years smoked: 2 Smoking pack-years: 0.00 Smoking status: Former smoker Second hand tobacco smoke exposure: Yes Alcohol intake: never Substance use: never Substance use type: does not use Do You Feel Safe in your Home?: Yes Lack of Transportation: No Lack of Food: Never True Current Housing: I Have Housing Concerned About Future Housing: No Difficulty Paying Gas/Electric Bills: No Difficulty Paying for Meds: No Currently Unemployed: No Education: Decline to Answer Difficulty w/ Childcare or Family Care: No Living arrangements: with family Additional occupation/education comments: Disabled. Spiritual care concerns: No Exam Narrative: APPEARANCE: Patient is tearful and crying Head: atraumatic. EYES: EOMI, NOSE: Atraumatic NECK: Trachea midline RESPIRATORY: No increased rate of breathing CTAB CARDIOVASCULAR: RRR, no peripheral edema ABDOMINAL: Non-distended soft nontender MUSCULOSKELETAl: No obvious deformities NEURO: Alert. Moving 4/4 extremities SKIN:: Warm, dry. Normal color PSYCHIATRIC: Normal affect Course Vital Signs Vital signs: Vital Signs Temperature 97.1 F L 07/21/24 21:51 Pulse Rate 93 07/21/24 21:51 Respiratory Rate 20 07/21/24 21:51 Blood Pressure 154/64 H 07/21/24 21:51 Pulse Oximetry 99 07/21/24 21:51 Oxygen Delivery Room Air 07/21/24 21:51 Temperature 97.1 F L 07/21/24 21:51 Pulse Rate 89 07/22/24 01:36 Respiratory Rate 18 07/22/24 01:36 Blood Pressure 133/64 07/22/24 01:36 Pulse Oximetry 98 07/22/24 01:36 Oxygen Delivery Room Air 07/22/24 00:13 Medical Decision Making [facility] Narrative Medical decision making narrative: -Course: 69-year-old female presenting with flu-like symptoms for 2 weeks. She developed body aches and headache yesterday. She is concerned that she has pneumonia. CT of the chest negative for pneumonia. Viral swabs were negative. Vital signs within normal limits and laboratory studies within normal limits. Patient received her home dose of [place] and says that she feels much better.. Findings most consistent with viral syndrome. She will be discharged with supportive measures. Given return precautions. -DDX includes but is not limited to: Pneumonia, viral syndrome, COVID, flu, chronic pain -Co-morbidities complicating care: Chronic pain Vital Signs Vital Signs: Vital Signs Temperature 97.1 F L 07/21/24 21:51 Pulse Rate 93 07/21/24 21:51 Respiratory Rate 20 07/21/24 21:51 Blood Pressure 154/64 H 07/21/24 21:51 Pulse Oximetry 99 07/21/24 21:51 Oxygen Delivery Room Air 07/21/24 21:51 Temperature 97.1 F L 07/21/24 21:51 Pulse Rate 89 07/22/24 01:36 Respiratory Rate 18 07/22/24 01:36 Blood Pressure 133/64 07/22/24 01:36 Pulse Oximetry 98 07/22/24 01:36 Oxygen Delivery Room Air 07/22/24 00:13 Lab Data 07/21/24 22:03 07/21/24 22:03 Labs: Lab Results 07/21/24 Range/Units 22:03 WBC 10.7 H (4.5-10.0) K/mm3 RBC 4.76 (4.2-5.4) M/mm3 Hgb 14.2 (12.0-15.0) g/dL Hct 43.5 (37.0-47.0) % MCV 91.4 (80-100) fl MCH 29.8 (26-34) pg MCHC 32.6 (32-36) g/dl RDW 13.2 (11.5-14.5) % Plt Count 292 (150-375) k/mm3 MPV 9.6 (7.4-10.4) fl Immature Gran % (Auto) 0.6 H (0-0.5) % Neut % (Auto) 65.8 (45.5-73.1) % Lymph % (Auto) 24.5 (18.3-44.2) % Shannon % (Auto) 6.5 (2.6-8.5) % Eos % (Auto) 2.2 (0-4.4) % Baso % (Auto) 0.4 (0.2-1.2) % Lymph # (Auto) 2.61 (0.9-3.2) K/mm3 Shannon # (Auto) 0.7 H (0.1-0.6) K/mm3 Eos # (Auto) 0.2 (0-0.3) K/mm3 Baso # (Auto) 0.0 (0.0-0.1) K/mm3 Abs Immat Gran (auto) 0.06 H (0.00-0.031) K/mm3 Absolute Neuts (auto) 7.0 H (1.3-6.7) K/mm3 Absolute Nucleated RBC 0.000 (0.0-0.012) K/mm3 Nucleated RBC % 0.0 (0.0-0.2) % Sodium 138 (137-145) mmol/L Potassium 4.2 (3.4-5.0) mmol/L Chloride 99 (98-107) mmol/L Carbon Dioxide 31 H (22-30) mmol/L Anion Gap 8 (4-12) mmol/L BUN 21 H (7-17) mg/dL Creatinine 0.74 (0.7-1.0) mg/dL Estim Creat Clear Calc 76 ml/min Estimated GFR > 60 (59 - ) Glucose 340 H (65-110) mg/dL Calcium 10.1 (8.4-10.2) mg/dL Total Bilirubin 0.8 (0.2-1.3) mg/dL AST 26 (14-36) U/L ALT 27 (6-35) U/L Alkaline Phosphatase 84 (38-126) U/L NT-Pro-B Natriuret Pep 86 (19.9-100) pg/mL Total Protein 9.0 H (6.3-8.2) g/dL Albumin 4.4 (3.5-5.1) g/dL Influenza A (RT-PCR) Negative (Negative) Influenza B (RT-PCR) Negative (Negative) RSV (RT-PCR) Negative (Negative) SARS-CoV-2 RNA (RT-PCR) Negative (Negative) Discharge Plan Discharge Clinical Impression: Acute viral syndrome Patient Disposition: Home, Self-Care Condition: Stable Instructions: Antibiotic Form, Viral Syndrome (ED) Additional Instructions: You were seen in the emergency department for a viral syndrome. Please use Tylenol for fevers and body aches. Please make sure you are drinking plenty of fluids. Follow-up with your primary care physician in 3-5 days. If you feel you are getting worse, develops severe pain chest pain difficulty breathing please return to ED for re-evaluation. Patient Language: Belarusian Prescriptions: No Action gabapentin 300 mg capsule 300 mg PO TID cyclobenzaprine 10 mg tablet 10 mg PO TID PRN (Reason: muscle spasm) Qty: 20 0RF Rx Instructions: no driving or alcohol while taking this medication clindamycin HCl [Cleocin HCl] 300 mg capsule 300 mg PO Q8H 7 Days Qty: 21 0RF methylprednisolone [Medrol (Nam)] 4 mg tablets,dose pack See Rx Instructions .ROUTE .COMPLEX Qty: 21 0RF Rx Instructions: orally per package directions exemestane 25 mg tablet 25 mg PO HS ropinirole 5 mg tablet 5 mg PO HS insulin glargine [Lantus Solostar U-100 Insulin] 100 unit/mL (3 mL) insulin pen 32 unit SUBCUT QAM insulin lispro [Humalog KwikPen Insulin] 100 unit/mL insulin pen 28 unit SUBCUT TID albuterol sulfate 90 mcg/actuation HFA aerosol inhaler 1 inh inhalation QID PRN (Reason: shortness of breath or wheezing) Qty: 6.7 0RF oxybutynin chloride 15 mg tablet extended release 24hr 15 mg PO DAILY acetaminophen 325 mg Tablet 650 mg PO Q6H PRN (Reason: Pain 1-5 or Fever) Qty: 30 0RF Xarelto 20 mg tablet 20 mg PO 1700 Qty: 30 0RF hydrocodone-acetaminophen 10-325 mg tablet 1 tablet PO Q6H PRN (Reason: pain (scale score 7-10)) Qty: 10 0RF Follow-up/Referrals: Shahla,Justen Spicer MD [Primary Care Provider] -
[2024-07-22 03:28] LABS: NT Pro B Type Natriuretic Pept 86 pg/mL (19.9-100)
[2024-07-22 03:52] VITALS: BP 144/77; PULSE 88; RESP 18; O2SAT 98
== END 2024-07-22 03:53 | disposition home or self-care (01) ==
PROVIDERS: Emergency Provider Emergency Medicine; PCP Internal Medicine
DX: B34.9 Viral infection, unspecified (principal); Z20.822 Contact with and (suspected) exposure to COVID-19; I50.9 Heart failure, unspecified; E11.42 Type 2 diabetes mellitus with diabetic polyneuropathy; E66.01 Morbid (severe) obesity due to excess calories; Z68.42 Body mass index [BMI] 45.0-49.9, adult; G47.33 Obstructive sleep apnea (adult) (pediatric); G25.81 Restless legs syndrome; K58.9 Irritable bowel syndrome, unspecified; F41.9 Anxiety disorder, unspecified; F32.A Depression, unspecified; N32.81 Overactive bladder; Z96.651 Presence of right artificial knee joint; Z86.718 Personal history of other venous thrombosis and embolism; Z87.891 Personal history of nicotine dependence; Z86.711 Personal history of pulmonary embolism; Z85.3 Personal history of malignant neoplasm of breast; Z87.442 Personal history of urinary calculi; Z86.16 Personal history of COVID-19; Z90.49 Acquired absence of other specified parts of digestive tract; Z90.13 Acquired absence of bilateral breasts and nipples; Z90.721 Acquired absence of ovaries, unilateral; Z79.4 Long term (current) use of insulin; Z79.01 Long term (current) use of anticoagulants; Z79.899 Other long term (current) drug therapy; R94.31 Abnormal electrocardiogram [ECG] [EKG]
CPT/HCPCS: 36415; 71045; 71250; 80053; 83880; 85025; 87637; 93005; 96361; 96374; 99284; J1171; J7030

== ENCOUNTER 2024-08-05 15:09 | Emergency (ER) | payer MEDICARE, SELFPAY ==
[2024-08-05 15:31] VITALS: BP 170/88; PULSE 91; RESP 16; TEMP 36.3; O2SAT 97
--- NOTE | 2024-08-05 15:36 | ED_ITS ---
HPI - General Adult General Chief complaint: Recheck/Abnormal Lab/Rx Stated complaint: muscle cramps, recent autoimmune labs abnormality Time Seen by Provider: 08/05/24 15:36 Focused HPI: Patient is a 69 y/o female who presents to the ED with c/o muscle pain. Patient reports she was seen here last month for L hip pain. States since then, she has had progressively worsening muscle pain and weakness in her marilyn hips, thighs, arms, shoulders, back. She went to her doctor on Monday and thought symptoms may be polymyositis. She states she was sent for additional blood work, and her inflammatory markers came back abnormal (ESR 66, CRP 4). Was started on prednisone, but has only had 1 dose of this so far. Scheduled to see her PCP again next Monday, but states the pain has been worsening. Is taking her home hydrocodone w/o improvement. Having difficulty ambulating d/t pain and weakness. Denies focal sx's, CP, SOB. Also currently being tx'd for PNA. GENERAL: Chronically ill-appearing, morbidly obese with BMI of 51.6 and in no acute distress. HEAD: Normocephalic, atraumatic. CHEST: Clear to auscultation. ?No respiratory distress. HEART: Regular rate and rhythm.? NEURO: ?Alert and oriented x3. No appreciable focal deficits Patient screened in triage and initial orders placed.? ?Additional care and disposition to be based upon?diagnostic testing and treatment. Source: patient Mode of arrival: ambulatory Limitations: no limitations Related Data Home Medications ?Medication ?Instructions ?Recorded ?Confirmed ?Last Taken ?Type exemestane 25 mg tablet 25 mg PO HS 01/06/20 06/20/24 12/04/23 22:00 History insulin glargine 100 unit/mL (3 32 unit subcut QAM 01/06/20 06/20/24 12/04/23 11:00 History mL) subcutaneous pen (Lantus Solostar U-100 Insulin) ropinirole 5 mg tablet 5 mg PO HS 01/06/20 06/20/24 12/04/23 22:00 History insulin lispro 100 unit/mL 28 unit subcut TID 03/19/22 06/20/24 Unknown History subcutaneous pen (Humalog KwikPen (U-100) Insulin) oxybutynin chloride 15 mg 15 mg PO DAILY 11/06/22 06/20/24 12/04/23 11:00 History tablet,extended release 24 hr gabapentin 300 mg capsule 300 mg PO TID 06/25/23 06/20/24 12/04/23 22:00 History Allergies Allergy/AdvReac Type Severity Reaction Status Date / Time ceftriaxone Allergy Severe SOB Verified 07/10/24 14:53 cephalexin Allergy Severe Difficulty Verified 07/10/24 14:53 Breathing Cephalosporins Allergy Severe Difficulty Verified 07/10/24 14:53 Breathing lorazepam Allergy Severe Swelling Verified 07/10/24 14:53 trazodone Allergy Severe Swelling Verified 07/10/24 14:53 of Lip/Tongue/Throat metoclopramide Allergy Intermediate Other Verified 07/10/24 14:53 chlorhexidine Allergy Mild BLISTERING Verified 07/10/24 14:53 levofloxacin Allergy Mild Hives / Verified 07/10/24 14:53 Red Face ketorolac Allergy Itching Verified 07/10/24 14:53 latex Allergy Rash Verified 07/10/24 14:53 meropenem Allergy Rash Verified 07/10/24 14:53 nitrofurantoin Allergy Itching Verified 07/10/24 14:53 sulfamethoxazole (From Allergy Itching Verified 07/10/24 14:53 Sulfamethoxazole-Trimethoprim) trimethoprim (From Allergy Itching Verified 07/10/24 14:53 Sulfamethoxazole-Trimethoprim) oxycodone AdvReac Mild Vomiting Verified 07/10/24 14:53 amlodipine AdvReac Swelling Verified 07/10/24 14:53 lisinopril AdvReac Swelling Verified 07/10/24 14:53 pregabalin AdvReac Swelling Verified 07/10/24 14:53 reslizumab AdvReac Unknown Verified 07/10/24 14:53 [facility] Past Medical History Medical History Chronic anticoagulation Overactive bladder Type 2 diabetes mellitus Deep venous thrombosis Irritable bowel syndrome Restless leg syndrome Obstructive sleep apnea on CPAP Congestive heart failure Chronic back pain COVID-19 Collagenous colitis Morbid obesity Breast cancer Depression Anxiety Peripheral neuropathy Kidney stone Pulmonary embolism positive for coagulation workup Multiple thyroid nodules Surgical History Surgical History History of umbilical hernia repair History of colonoscopy Status post insertion of spinal cord stimulator History of cystoscopy History of ureter stent History of cholecystectomy History of bilateral mastectomy History of esophagogastroduodenoscopy (EGD) History of right oophorectomy History of total right knee replacement History of cardiac catheterization Reportedly negative for coronary artery disease. Family History Family History Mother Diabetes mellitus Acute myocardial infarction Cerebrovascular accident Hypertension Congestive heart failure Father Prostate carcinoma Sibling Breast cancer Acute myocardial infarction Chronic obstructive pulmonary disease Social History Social History Social History: Surrogate medical decision maker: Jimmie Marques, spouse. Code status: Full code. Smoking packs per day: 0 Smoking cigarettes per day: 0.0 Years smoked: 2 Smoking pack-years: 0.00 Smoking status: Former smoker Second hand tobacco smoke exposure: Yes Alcohol intake: never Substance use: never Substance use type: does not use Do You Feel Safe in your Home?: Yes Lack of Transportation: No Lack of Food: Never True Current Housing: I Have Housing Concerned About Future Housing: No Difficulty Paying Gas/Electric Bills: No Difficulty Paying for Meds: No Currently Unemployed: No Education: Decline to Answer Difficulty w/ Childcare or Family Care: No Living arrangements: with family Additional occupation/education comments: Disabled. Spiritual care concerns: No Course Vital Signs Vital signs: Vital Signs Temperature 97.4 F L 08/05/24 15:31 Pulse Rate 91 08/05/24 15:31 Respiratory Rate 16 08/05/24 15:31 Blood Pressure 170/88 H 08/05/24 15:31 Pulse Oximetry 97 08/05/24 15:31 Oxygen Delivery Room Air 08/05/24 15:31 Temperature 97.4 F L 08/05/24 15:31 Pulse Rate 77 08/05/24 17:00 Respiratory Rate 17 08/05/24 17:00 Blood Pressure 141/84 H 08/05/24 17:00 Pulse Oximetry 97 08/05/24 17:00 Oxygen Delivery Room Air 08/05/24 15:31 Medical Decision Making MDM Narrative Medical decision making narrative: MSE by ERIC in triage. Vital Signs Vital Signs: Vital Signs Temperature 97.4 F L 08/05/24 15:31 Pulse Rate 91 08/05/24 15:31 Respiratory Rate 16 08/05/24 15:31 Blood Pressure 170/88 H 08/05/24 15:31 Pulse Oximetry 97 08/05/24 15:31 Oxygen Delivery Room Air 08/05/24 15:31 Temperature 97.4 F L 08/05/24 15:31 Pulse Rate 77 08/05/24 17:00 Respiratory Rate 17 08/05/24 17:00 Blood Pressure 141/84 H 08/05/24 17:00 Pulse Oximetry 97 08/05/24 17:00 Oxygen Delivery Room Air 08/05/24 15:31 Lab Data 08/05/24 15:52 08/05/24 15:51 Labs: Lab Results 08/05/24 08/05/24 Range/Units 15:51 15:52 WBC 10.0 (4.5-10.0) K/mm3 RBC 4.67 (4.2-5.4) M/mm3 Hgb 13.6 (12.0-15.0) g/dL Hct 42.6 (37.0-47.0) % MCV 91.2 (80-100) fl MCH 29.1 (26-34) pg MCHC 31.9 L (32-36) g/dl RDW 12.9 (11.5-14.5) % Plt Count 271 (150-375) k/mm3 MPV 9.7 (7.4-10.4) fl Immature Gran % (Auto) 0.5 (0-0.5) % Neut % (Auto) 75.5 H (45.5-73.1) % Lymph % (Auto) 17.4 L (18.3-44.2) % Rankin % (Auto) 5.3 (2.6-8.5) % Eos % (Auto) 1.0 (0-4.4) % Baso % (Auto) 0.3 (0.2-1.2) % Lymph # (Auto) 1.74 (0.9-3.2) K/mm3 [place] # (Auto) 0.5 (0.1-0.6) K/mm3 Eos # (Auto) 0.1 (0-0.3) K/mm3 Baso # (Auto) 0.0 (0.0-0.1) K/mm3 Abs Immat Gran (auto) 0.05 H (0.00-0.031) K/mm3 Absolute Neuts (auto) 7.6 H (1.3-6.7) K/mm3 Absolute Nucleated RBC 0.000 (0.0-0.012) K/mm3 Nucleated RBC % 0.0 (0.0-0.2) % ESR 21 H (0-20) mm/hr Sodium 136 L (137-145) mmol/L Potassium 4.5 (3.4-5.0) mmol/L Chloride 102 (98-107) mmol/L Carbon Dioxide 26 (22-30) mmol/L Anion Gap 8 (4-12) mmol/L BUN 20 H (7-17) mg/dL Creatinine 0.65 L (0.7-1.0) mg/dL Estim Creat Clear Calc 88 ml/min Estimated GFR > 60 (59 - ) Glucose 302 H (65-110) mg/dL Calcium 10.0 (8.4-10.2) mg/dL Magnesium 1.5 L (1.6-2.3) mg/dL Total Bilirubin 0.7 (0.2-1.3) mg/dL AST 25 (14-36) U/L ALT 26 (6-35) U/L Alkaline Phosphatase 74 (38-126) U/L C-Reactive Protein 1.6 H (<1.0) mg/dL Total Protein 9.0 H (6.3-8.2) g/dL Albumin 4.3 (3.5-5.1) g/dL Discharge Plan Discharge Clinical Impression: Polymyositis Patient Disposition: Home Condition: Improved Instructions: Polymyositis (ED) Additional Instructions: Return if symptoms are worsening , call your family physician for appointment, take Tylenol as as needed for aches and pain, continue home medications. Patient Language: Maldivian Prescriptions: No Action gabapentin 300 mg capsule 300 mg PO TID cyclobenzaprine 10 mg tablet 10 mg PO TID PRN (Reason: muscle spasm) Qty: 20 0RF Rx Instructions: no driving or alcohol while taking this medication clindamycin HCl [Cleocin HCl] 300 mg capsule 300 mg PO Q8H 7 Days Qty: 21 0RF methylprednisolone [Medrol ([place])] 4 mg tablets,dose pack See Rx Instructions .ROUTE .COMPLEX Qty: 21 0RF Rx Instructions: orally per package directions exemestane 25 mg tablet 25 mg PO HS ropinirole 5 mg tablet 5 mg PO HS insulin glargine [Lantus Solostar U-100 Insulin] 100 unit/mL (3 mL) insulin pen 32 unit SUBCUT QAM insulin lispro [Humalog KwikPen Insulin] 100 unit/mL insulin pen 28 unit SUBCUT TID albuterol sulfate 90 mcg/actuation HFA aerosol inhaler 1 inh inhalation QID PRN (Reason: shortness of breath or wheezing) Qty: 6.7 0RF oxybutynin chloride 15 mg tablet extended release 24hr 15 mg PO DAILY acetaminophen 325 mg Tablet 650 mg PO Q6H PRN (Reason: Pain 1-5 or Fever) Qty: 30 0RF Xarelto 20 mg tablet 20 mg PO 1700 Qty: 30 0RF hydrocodone-acetaminophen 10-325 mg tablet 1 tablet PO Q6H PRN (Reason: pain (scale score 7-10)) Qty: 10 0RF Follow-up/Referrals: Sahhla,Justen Spicer MD [Primary Care Provider] -
[2024-08-05] MEDS: CYCLOBENZAPRINE HCL 10 MG TABLET PO (15:50)
[2024-08-05 15:57] LABS: Basophils Percent Auto 0.3 % (0.2-1.2); Eosinophils Absolute Auto 0.1 K/mm3 (0-0.3); Hematocrit 42.6 % (37.0-47.0); Hemoglobin 13.6 g/dL (12.0-15.0); Immature Granulocyte Absolute 0.05 K/mm3 (0.00-0.031); Immature Granulocyte Percent A 0.5 % (0-0.5); Lymphocytes Absolute Auto 1.74 K/mm3 (0.9-3.2); Lymphocytes Percent Auto 17.4 % (18.3-44.2); Mean Corpuscular HGB Conc 31.9 g/dl (32-36); Mean Corpuscular Hemoglobin 29.1 pg (26-34); Mean Corpuscular Volume 91.2 fl (80-100); Mean Platelet Volume 9.7 fl (7.4-10.4); Monocytes Absolute Auto 0.5 K/mm3 (0.1-0.6); Monocytes Percent Auto 5.3 % (2.6-8.5); Neutrophils Absolute Auto 7.6 K/mm3 (1.3-6.7); Neutrophils Percent Auto 75.5 % (45.5-73.1); Platelet Count Result 271 k/mm3 (150-375); Red Blood Count 4.67 M/mm3 (4.2-5.4); Red Cell Distribution Width 12.9 % (11.5-14.5)
[2024-08-05 16:11] VITALS: PULSE 90; RESP 14; O2SAT 95
[2024-08-05 16:15] LABS: Alanine Aminotransferase 26 U/L (6-35); Albumin Level 4.3 g/dL (3.5-5.1); Alkaline Phosphatase 74 U/L (38-126); Anion Gap 8 mmol/L (4-12); Aspartate Amino Transferase 25 U/L (14-36); Bilirubin,Total 0.7 mg/dL (0.2-1.3); Blood Urea Nitrogen 20 mg/dL (7-17); CRP 1.6 mg/dL (<1.0); Carbon Dioxide 26 mmol/L (22-30); Chloride 102 mmol/L (98-107); Estimated CRCL calculation 88 ml/min; Estimated Glomerular Filt Rate > 60; Glucose 302 mg/dL (65-110); Magnesium 1.5 mg/dL (1.6-2.3); Potassium 4.5 mmol/L (3.4-5.0); Sodium 136 mmol/L (137-145)
--- NOTE | 2024-08-05 16:38 | ED_ITS ---
HPI - General Adult General Chief complaint: Recheck/Abnormal Lab/Rx Stated complaint: muscle cramps, recent autoimmune labs abnormality Time Seen by Provider: 08/05/24 15:36 Source: patient Mode of arrival: ambulatory Limitations: no limitations History of Present Illness HPI narrative: 69 years old white female came from home by private car complaining of muscle aches all over her body including hips thigh arms shoulder back started over 1 month ago, had a recent diagnosis of polymyositis, prescribed prednisone 4 days ago, had 1st dose today. Patient is telling me that she could not sleep last night because of the diffuse pain all over her body. She denies any fever, chills, nausea, vomiting, diarrhea, patient feeling Related Data Home Medications ?Medication ?Instructions ?Recorded ?Confirmed ?Last Taken ?Type exemestane 25 mg tablet 25 mg PO HS 01/06/20 06/20/24 12/04/23 22:00 History insulin glargine 100 unit/mL (3 32 unit subcut QAM 01/06/20 06/20/24 12/04/23 11:00 History mL) subcutaneous pen (Lantus Solostar U-100 Insulin) ropinirole 5 mg tablet 5 mg PO HS 01/06/20 06/20/24 12/04/23 22:00 History insulin lispro 100 unit/mL 28 unit subcut TID 03/19/22 06/20/24 Unknown History subcutaneous pen (Humalog KwikPen (U-100) Insulin) oxybutynin chloride 15 mg 15 mg PO DAILY 11/06/22 06/20/24 12/04/23 11:00 History tablet,extended release 24 hr gabapentin 300 mg capsule 300 mg PO TID 06/25/23 06/20/24 12/04/23 22:00 History Allergies Allergy/AdvReac Type Severity Reaction Status Date / Time ceftriaxone Allergy Severe SOB Verified 07/10/24 14:53 cephalexin Allergy Severe Difficulty Verified 07/10/24 14:53 Breathing Cephalosporins Allergy Severe Difficulty Verified 07/10/24 14:53 Breathing lorazepam Allergy Severe Swelling Verified 07/10/24 14:53 trazodone Allergy Severe Swelling Verified 07/10/24 14:53 of Lip/Tongue/Throat metoclopramide Allergy Intermediate Other Verified 07/10/24 14:53 chlorhexidine Allergy Mild BLISTERING Verified 07/10/24 14:53 levofloxacin Allergy Mild Hives / Verified 07/10/24 14:53 Red Face ketorolac Allergy Itching Verified 07/10/24 14:53 latex Allergy Rash Verified 07/10/24 14:53 meropenem Allergy Rash Verified 07/10/24 14:53 nitrofurantoin Allergy Itching Verified 07/10/24 14:53 sulfamethoxazole (From Allergy Itching Verified 07/10/24 14:53 Sulfamethoxazole-Trimethoprim) trimethoprim (From Allergy Itching Verified 07/10/24 14:53 Sulfamethoxazole-Trimethoprim) oxycodone AdvReac Mild Vomiting Verified 07/10/24 14:53 amlodipine AdvReac Swelling Verified 07/10/24 14:53 lisinopril AdvReac Swelling Verified 07/10/24 14:53 pregabalin AdvReac Swelling Verified 07/10/24 14:53 reslizumab AdvReac Unknown Verified 07/10/24 14:53 Review of Systems 2 Review of Systems: All systems reviewed & are unremarkable except as noted in HPI and below PMFSH Past Medical History Medical History Chronic anticoagulation Overactive bladder Type 2 diabetes mellitus Deep venous thrombosis Irritable bowel syndrome Restless leg syndrome Obstructive sleep apnea on CPAP Congestive heart failure Chronic back pain COVID-19 Collagenous colitis Morbid obesity Breast cancer Depression Anxiety Peripheral neuropathy Kidney stone Pulmonary embolism positive for coagulation workup Multiple thyroid nodules Surgical History Surgical History History of umbilical hernia repair History of colonoscopy Status post insertion of spinal cord stimulator History of cystoscopy History of ureter stent History of cholecystectomy History of bilateral mastectomy History of esophagogastroduodenoscopy (EGD) History of right oophorectomy History of total right knee replacement History of cardiac catheterization Reportedly negative for coronary artery disease. Family History Family History Mother Diabetes mellitus Acute myocardial infarction Cerebrovascular accident Hypertension Congestive heart failure Father Prostate carcinoma Sibling Breast cancer Acute myocardial infarction Chronic obstructive pulmonary disease Social History Social History Social History: Surrogate medical decision maker: Jimmie Marques, spouse. Code status: Full code. Smoking packs per day: 0 Smoking cigarettes per day: 0.0 Years smoked: 2 Smoking pack-years: 0.00 Smoking status: Former smoker Second hand tobacco smoke exposure: Yes Alcohol intake: never Substance use: never Substance use type: does not use Do You Feel Safe in your Home?: Yes Lack of Transportation: No Lack of Food: Never True Current Housing: I Have Housing Concerned About Future Housing: No Difficulty Paying Gas/Electric Bills: No Difficulty Paying for Meds: No Currently Unemployed: No Education: Decline to Answer Difficulty w/ Childcare or Family Care: No Living arrangements: with family Additional occupation/education comments: Disabled. Spiritual care concerns: No Exam 2 Narrative: General appearance: Well-developed, well-nourished Skin: Normal color Head: Normocephalic, nontraumatic Eyes: Clear conjunctiva ENT: Oropharynx normal, ears normal, nose normal Neck: Supple, nontender Chest and respiratory: Airway patent, no respiratory distress, no accessory muscle use Heart: Regular rate/rhythm Abdomen: Soft, nontender, no organomegaly, quiet bowel sounds Vascular: Normal peripheral pulses, normal capillary refill. 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, no gross motor deficit Course Vital Signs Vital signs: Vital Signs Temperature 36.3 C L 08/05/24 15:31 Pulse Rate 91 08/05/24 15:31 Respiratory Rate 16 08/05/24 15:31 Blood Pressure 170/88 H 08/05/24 15:31 Pulse Oximetry 97 08/05/24 15:31 Oxygen Delivery Room Air 08/05/24 15:31 Temperature 36.3 C L 08/05/24 15:31 Pulse Rate 90 08/05/24 16:11 Respiratory Rate 14 08/05/24 16:11 Blood Pressure 170/88 H 08/05/24 15:31 Pulse Oximetry 95 08/05/24 16:11 Oxygen Delivery Room Air 08/05/24 15:31 Medical Decision Making [facility] Narrative Medical decision making narrative: Patient have a recent diagnosis of polymyositis, prescribed prednisone 4 days ago, start the 1st dose today. In the ED patient received 1 mg Dilaudid IM, 4 mg of Zofran p.o. with significant improvement. Patient was advised to continue prednisone No labs or imaging are required at this time The pt was discharged to home.the pt,s condition upon discharge was fair,education was provided to the pt in reference to the final impression,discharge study results,treatment,prognosis and need for follow up . Vital Signs Vital Signs: Vital Signs Temperature 36.3 C L 08/05/24 15:31 Pulse Rate 91 08/05/24 15:31 Respiratory Rate 16 08/05/24 15:31 Blood Pressure 170/88 H 08/05/24 15:31 Pulse Oximetry 97 08/05/24 15:31 Oxygen Delivery Room Air 08/05/24 15:31 Temperature 36.3 C L 08/05/24 15:31 Pulse Rate 90 08/05/24 16:11 Respiratory Rate 14 08/05/24 16:11 Blood Pressure 170/88 H 08/05/24 15:31 Pulse Oximetry 95 08/05/24 16:11 Oxygen Delivery Room Air 08/05/24 15:31 Lab Data 08/05/24 15:52 08/05/24 15:51 Labs: Lab Results 08/05/24 08/05/24 Range/Units 15:51 15:52 WBC 10.0 (4.5-10.0) K/mm3 RBC 4.67 (4.2-5.4) M/mm3 Hgb 13.6 (12.0-15.0) g/dL Hct 42.6 (37.0-47.0) % MCV 91.2 (80-100) fl MCH 29.1 (26-34) pg MCHC 31.9 L (32-36) g/dl RDW 12.9 (11.5-14.5) % Plt Count 271 (150-375) k/mm3 MPV 9.7 (7.4-10.4) fl Immature Gran % (Auto) 0.5 (0-0.5) % Neut % (Auto) 75.5 H (45.5-73.1) % Lymph % (Auto) 17.4 L (18.3-44.2) % [place] % (Auto) 5.3 (2.6-8.5) % Eos % (Auto) 1.0 (0-4.4) % Baso % (Auto) 0.3 (0.2-1.2) % Lymph # (Auto) 1.74 (0.9-3.2) K/mm3 [place] # (Auto) 0.5 (0.1-0.6) K/mm3 Eos # (Auto) 0.1 (0-0.3) K/mm3 Baso # (Auto) 0.0 (0.0-0.1) K/mm3 Abs Immat Gran (auto) 0.05 H (0.00-0.031) K/mm3 Absolute Neuts (auto) 7.6 H (1.3-6.7) K/mm3 Absolute Nucleated RBC 0.000 (0.0-0.012) K/mm3 Nucleated RBC % 0.0 (0.0-0.2) % ESR Pending Sodium 136 L (137-145) mmol/L Potassium 4.5 (3.4-5.0) mmol/L Chloride 102 (98-107) mmol/L Carbon Dioxide 26 (22-30) mmol/L Anion Gap 8 (4-12) mmol/L BUN 20 H (7-17) mg/dL Creatinine 0.65 L (0.7-1.0) mg/dL Estim Creat Clear Calc 88 ml/min Estimated GFR > 60 (59 - ) Glucose 302 H (65-110) mg/dL Calcium 10.0 (8.4-10.2) mg/dL Magnesium 1.5 L (1.6-2.3) mg/dL Total Bilirubin 0.7 (0.2-1.3) mg/dL AST 25 (14-36) U/L ALT 26 (6-35) U/L Alkaline Phosphatase 74 (38-126) U/L C-Reactive Protein 1.6 H (<1.0) mg/dL Total Protein 9.0 H (6.3-8.2) g/dL Albumin 4.3 (3.5-5.1) g/dL Critical Care Time Critical Care Time Critical Care Time: No Discharge Plan Discharge Clinical Impression: Polymyositis Patient Disposition: Home Condition: Improved Instructions: Polymyositis (ED) Additional Instructions: Return if symptoms are worsening , call your family physician for appointment, take Tylenol as as needed for aches and pain, continue home medications. Patient Language: Tajik Prescriptions: No Action gabapentin 300 mg capsule 300 mg PO TID cyclobenzaprine 10 mg tablet 10 mg PO TID PRN (Reason: muscle spasm) Qty: 20 0RF Rx Instructions: no driving or alcohol while taking this medication clindamycin HCl [Cleocin HCl] 300 mg capsule 300 mg PO Q8H 7 Days Qty: 21 0RF methylprednisolone [Medrol ([place])] 4 mg tablets,dose pack See Rx Instructions .ROUTE .COMPLEX Qty: 21 0RF Rx Instructions: orally per package directions exemestane 25 mg tablet 25 mg PO HS ropinirole 5 mg tablet 5 mg PO HS insulin glargine [Lantus Solostar U-100 Insulin] 100 unit/mL (3 mL) insulin pen 32 unit SUBCUT QAM insulin lispro [Humalog KwikPen Insulin] 100 unit/mL insulin pen 28 unit SUBCUT TID albuterol sulfate 90 mcg/actuation HFA aerosol inhaler 1 inh inhalation QID PRN (Reason: shortness of breath or wheezing) Qty: 6.7 0RF oxybutynin chloride 15 mg tablet extended release 24hr 15 mg PO DAILY acetaminophen 325 mg Tablet 650 mg PO Q6H PRN (Reason: Pain 1-5 or Fever) Qty: 30 0RF Xarelto 20 mg tablet 20 mg PO 1700 Qty: 30 0RF hydrocodone-acetaminophen 10-325 mg tablet 1 tablet PO Q6H PRN (Reason: pain (scale score 7-10)) Qty: 10 0RF Follow-up/Referrals: Shahla,Justen Spicer MD [Primary Care Provider] -
[2024-08-05 16:44] LABS: Erythrocyte Sedimentation Rate 21 mm/hr (0-20)
[2024-08-05 17:00] VITALS: BP 141/84; PULSE 77; RESP 17; O2SAT 97
[2024-08-05] MEDS: ONDANSETRON HCL ODT 4 MG TABLET PO (17:00)
[2024-08-05] MEDS: HYDROmorphone HCL INJ (*CRX) 1 MG/ML SYR IM (17:00)
--- OUTSIDE RECORDS SUMMARY | 2024-08-05 17:00 | XMS_ITS | Encounter Summary ---
Author Organization [facility] Address [address] [place] [address] Phone Care Team Providers Care Learning Engineer Name Role Phone Justen Gale MD Primary Care Provider [phone] David Roberts APRN, [employer]ER Unavailable [phone] Annel Rod MD Unavailable Reason for Visit * Reason Onset Date Comments Sore Throat 06/29/2020 Encounter Details Date Type Department Care Team (Late st Contact Info) Description 06/29/2020 Telephone [facility] [place] [address] [place] [address] Justen Gale MD [address] [address] Sore Throat Social History Tobacco Use Types Packs/Day Years Used Date Smoking Tobacco: Never Smokeless Tobacco: Never Alcohol Use Standard Drinks/Week Comments No 0 (1 standard drink = 0.6 oz pur e alcohol) PHQ-2 Answer Date Recorded PHQ-2 Score 0 12/19/2018 Sexually Active Control Partners Comments Never Comments No Sex and Gender Information Value Date Recorded Sex Assigned at Female 08/03/2024 2:05 AM CDT Legal Sex Female 12:43 PM CDT Gender Identity Female 08/03/2024 2:05 AM CDT Sexual Orientation Not on file COVID-19 Exposure Response Date Recorded In the last month, have you been in contact with someone who was confirmed or suspected to have Coronavirus / COVID-19? No / Unsure 06/29/2020 8:43 AM CHEMIC MANGLER documented as of this encounter Miscellaneous Notes * Telephone Encounter - Gail Lucero RN - 06/29/2020 3:53 PM CST Attempted to call mailbox is full. Pt does not need testing IC MANGLER * Telephone Encounter - Vince Hermosillo MD - 06/29/2020 3:13 PM CST No covid testing needed. If the er thought that it was warranted then they would have done this. IC MANGLER * Telephone Encounter - Marlys Sorensen RN - 06/29/2020 8:36 AM CST Patient calling. Patient is calling to schedule Hospital/ED/Prompt-Care follow up appointment. Hospital/ED/Prompt-Care Site: [facility] ED Records Requested: Yes Reason for [...] f/up and yearly PAP appointments? Please advise. IC MANGLER documented in this encounter Plan of Treatment Upcoming Encounters Date Type Department Care Team (Late st Contact Info) Description 08/12/2024 11:30 AM CDT Office Visit [facility] - [facility] Medicine - [place] [address] [place] [address] Angelito Alegria APRN, NETTA [address] [facility] [address] [place] [address] 09/18/2024 2:45 PM CDT Office Visit [facility] - Endocrinology - [place] [address] [place] [address] Annel Rod MD [address] [facility] [address] [place] [address] documented as of this encounter Visit Diagnoses Not on filedocumented in this encounter Additional Health Concerns Infection Onset Date Last Indicated Resolved Time COVID - 19 08/01/2024 08/01/2024 08/01/2024 3:20 PM CDT Assessment Noted Time PHQ-9 Depression Total Score: 0 09/08/19 19 1:00 PM CDT documented as of this encounter Care Teams Learning Engineer Relationship Specialty Start Date End Date Justen Gale MD [address] [facility] [address] [place] [address] PCP - General Family Medicine 10/17/17 David Roberts, SAFE DEPOSIT CLERK, [employer] [address] [place] [address] Nurse Practitioner Advanced Practice Nurse 01/31/22 Annel Rod MD [address] [facility] [address] [place] [address] Consulting Physician Endocrinology 07/01/22 documented as of this encounter
--- OUTSIDE RECORDS SUMMARY | 2024-08-05 17:00 | XMS_ITS ---
Author Organization [facility] Address [address] [place] [address] Care Team Providers Care [employer] Driver Name Role Phone Liu Jerez MD Unavailable [phone] Albert Corbin MD Unavailable [phone] Justen Gale MD Primary Care Provider Khris Arthur MD Unavailable [phone] Ko Melendez MD Unavailable [phone] John Paul Moyer MD Unavailable [phone] Annel Rod MD Unavailable Anali MARSHALL MD, Carlos M. 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 10/17/2019 [...] complication, without long-term current use of insulin ([facility]) 10/23/2017 Assessment & Plan (10/23/2017 [...] 10/13/2017 Assessment & Plan (05/22/2024 12:29 PM GREASER OPERATOR): -Hx stage II, ER positive, HER2 negative [...] 08/01/2017 Assessment & Plan (05/22/2024 12:33 PM GREASER OPERATOR): -Hx LUL -Hospital provided CPAP ordered History of DVT (deep vein thrombosis) 08/01/2017 History of pulmonary embolism 08/01/2017 Generalized weakness 07/27/2017 Dyspnea 07/27/2017 Unintentional weight loss 07/27/2017 Acute cystitis without hematuria 07/27/2017 Nausea and vomiting 07/26/2017 Overview (07/28/2017): Added automatically from request for surgery [id number] Pulmonary embolism 08/09/2016 Assessment & Plan (10/23/2017 2:05 AM CDT): On Rivaroxaban Lymphedema of left upper extremity 08/09/2016 Assessment & Plan (05/25/2024 7:53 AM GREASER OPERATOR): S/p L axillary lymph node dissection 2014, [...] syndrome Assessment & Plan (05/22/2024 11:18 AM GREASER OPERATOR): -continue home Requip 5mg nightly Pain of lower extremity 03/12/2013 Overview (07/29/2016): Leg pain Essential hypertension Assessment & Plan (05/23/2024 10:42 AM GREASER OPERATOR): -Chart history of HTN but not on meds -BP elevated on admission, likely some pain contributing -Monitor closely once pain under adequate control, discussed following up with PCP for this Chronic anticoagulation Restless leg syndrome 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 Type 2 diabetes mellitus without complication Assessment & Plan (05/24/2024 1:39 PM GREASER OPERATOR): -Last Ha1c 8.4 in 2023, repeat 8.7 [...]
--- OUTSIDE RECORDS SUMMARY | 2024-08-05 17:00 | XMS_ITS | Clinical Summary ---
Author Organization [facility] Address [address] [place] [id number] Care Team Providers Care Consumer Analyst Name Role Phone Liu Jerez MD Unavailable Albert Corbin MD Unavailable [phone] Justen Gale MD Primary Care Provider Khris Arthur MD Unavailable [phone] Ko Melendez MD Unavailable [phone] John Paul Moyer MD Unavailable Annel Rod [...] 05/22/2024 Assessment & Plan (05/26/2024 10:08 AM RUG CLEANER): Presenting with urinary symptoms of right flank [...] 05/22/2024 Assessment & Plan (05/25/2024 7:52 AM RUG CLEANER): Hx of breast cancer c/b DVT/bilateral Pes [...] 05/22/2024 Assessment & Plan (05/22/2024 1:14 PM RUG CLEANER): -long-standing chronic back pain -CT L spine [...] 09/12/2021 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) 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) use 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 inhibitors 10/17/2019 Thyroid [...] complication, without long-term current use of insulin ([facility]) 10/23/2017 Assessment & Plan (10/23/2017 [...] 10/13/2017 Assessment & Plan (05/22/2024 12:29 PM RUG CLEANER): -Hx stage II, ER positive, HER2 negative [...] 08/01/2017 Assessment & Plan (05/22/2024 12:33 PM RUG CLEANER): -Hx LUL -Hospital provided CPAP ordered History of DVT (deep vein thrombosis) 08/01/2017 History of pulmonary embolism 08/01/2017 Generalized weakness 07/27/2017 Dyspnea 07/27/2017 Unintentional weight loss 07/27/2017 Acute cystitis without hematuria 07/27/2017 Nausea and vomiting 07/26/2017 Overview (07/28/2017): Added automatically from request for surgery [id number] Pulmonary embolism 08/09/2016 Assessment & Plan (10/23/2017 2:05 AM CDT): On Rivaroxaban Lymphedema of left upper extremity 08/09/2016 Assessment & Plan (05/25/2024 7:53 AM RUG CLEANER): S/p L axillary lymph node dissection 2014, [...] syndrome Assessment & Plan (05/22/2024 11:18 AM RUG CLEANER): -continue home Requip 5mg nightly Pain of lower extremity 03/12/2013 Overview (07/29/2016): Leg pain Essential hypertension Assessment & Plan (05/23/2024 10:42 AM RUG CLEANER): -Chart history of HTN but not on meds -BP elevated on admission, likely some pain contributing -Monitor closely once pain under adequate control, discussed following up with PCP for this Chronic anticoagulation Restless leg syndrome 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 Type 2 diabetes mellitus without complication Assessment & Plan (05/24/2024 1:39 PM RUG CLEANER): -Last Ha1c 8.4 in 2023, repeat 8.7 [...] CDT - 07/01/2024 10:18 PM CDT Emergency [facility] Emergency Department [employer] [place], [place] [id number] Myalgia (Primary Dx); Viral syndrome Discharge Disposition: Discharge to home or self care 05/30/2024 Orders Only [facility] Oncology [address] [facility] [address] [place] [address] Radha Mcgrath RN Lymphedema of left arm (Primary Dx); Malignant neoplasm of upper-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, unspecified estrogen receptor status (HCC); Malignant neoplasm of overlapping sites of left female breast, unspecified estrogen receptor status (HCC); Malignant neoplasm of female breast, unspecified estrogen receptor status, unspecified laterality, unspecified site of breast (HCC) 05/24/2024 Telephone [facility] [address] [place] [address] Radha Warner RN 05/23/2024 8:10 AM RUG CLEANER Ancillary Procedure [facility] Vascular Lab IP [address] [facility] [address] [place] [address] 05/21/2024 9:12 PM RUG CLEANER - 05/26/2024 6:45 PM RUG CLEANER Hospital Encounter [facility] [address] [place] [address] Jimmie Zavala MD Liss, MD Ra Parnell, MD Sebastian Claros Rehan, MD Left arm pain (Primary Dx); Left leg pain; Shortness of breath; Urinary tract infection without hematuria, site unspecified; Allergy to drug Discharge Disposition: Discharge to home or self care 05/21/2024 12:58 PM RUG CLEANER - 05/21/2024 11:59 PM RUG CLEANER Hospital Encounter AMBULANCE BILLING [address] [place] [address] Discharge Disposition: Discharge to home or self care 05/21/2024 11:00 AM RUG CLEANER - 05/21/2024 11:59 PM RUG CLEANER Hospital Encounter [facility] - Breast [facility] Floor [address] [place] [address] History of breast cancer; Axillary pain, left Discharge Disposition: Discharge to home or self care 05/16/2024 Telephone [facility] Oncology [address] [place] [address] 8 [place] [phone] Jeanine Ba, Cordelia 05/16/2024 Orders Only [facility] Oncology [address] [place] [address] 8 [place] [id number] Radha Mcgrath RN History of breast cancer (Primary Dx); Axillary pain, left 05/16/2024 Orders Only [facility] Oncology [address] [place] [address] 8 [place] [phone] Khris Arthur MD Swelling of left upper extremity (Primary Dx); Swelling of left lower extremity 05/14/2024 4:45 PM RUG CLEANER Lab [facility] - Lab Collection [facility] Floor [address] [place] [address] Malignant neoplasm of upper-inner quadrant of left breast in female, estrogen receptor positive (HCC) 05/14/2024 4:36 PM RUG CLEANER - 05/14/2024 11:59 PM RUG CLEANER Hospital Encounter [facility] - Diagnostic Imaging [address] [facility] [address] [place] [address] Malignant neoplasm of upper-inner quadrant of left breast in female, estrogen receptor positive (HCC) Discharge Disposition: Discharge to home or self care 05/14/2024 4:00 PM RUG CLEANER Lab [facility] Oncology Lab [address] [facility] [address] [place] [address] Malignant neoplasm of upper-inner quadrant of left breast in female, estrogen receptor positive (HCC) 05/14/2024 3:30 PM RUG CLEANER Office Visit [facility] Oncology [address] [facility] [address] [facility] [address] [place] [address] Khris Arthur MD Swelling of [...] drink = 0.6 oz pur e alcohol) [employer] Utilities Answer Date Recorded In the past 12 months has [employer], gas, oil, or water [employer] threatened to shut off services in your [...] you attend chur ch or moravian services? More than 4 times per year [...] a long term (including now)? No 08/15/2023 Housing Stability Vital Sign Answer [place] e Recorded In the last 12 months, was t here a time when you were not able to pay the mortgage or rent on time? No 05/24/2024 In the past 12 months, how m any times have you moved where you were living? 0 05/24/2024 At any time in the past 12 m [facility], were you homeless or living in a long term (including now)? No 05/24/2024 Personal Safety Answer Date Recorded Have you ever been in or are you currently in a harmful physical or emotional relationship or is someone making you feel afraid or unsafe? Denies 07/01/2024 Comments No Sex and Gender Information Value Date Recorded Sex Assigned at Not on file Legal Sex Female 12:24 AM RUG CLEANER Gender Identity Not on file Sexual [...] series) 07/27/2020 06/29/2020 Well Visit 65+ 2021 Osteoporosis Screening-Bone Density Scan 08/02/2024 08/02/2022, 08/02/2022, 11/10/2020, Additional history exists Hemoglobin A1C 11/19/2024 05/22/2024, 04/25, 08/14/2023, Additional history exists Influenza Vaccine (Season Ended) 2024 01/17/2023, 01/03/2022, 05/04/2021, Additional history exists Lipid Panel 05/21/2025 05/21/2024, 06/2 05/2023, 08/14/2023, Additional history exists Fall Risk Assessment 05/26/2025 05/26/2024 eGFR 07/01/2025 07/01/2024, 02/0 05/2024, 05/25/2024, Additional history exists DTaP/Tdap/Td Vaccine [...] GLUCOSE DEVICE Routine 05/26/2024 4 :27 PM RUG CLEANER POCT GLUCOSE DEVICE Routine 05/26/2024 1 1:38 AM RUG CLEANER POCT GLUCOSE DEVICE Routine 05/26/2024 8 :12 AM RUG CLEANER EGFR Routine 05/26/2024 12:05 AM RUG CLEANER DIFFERENTIAL AUTO Routine 05/26/2024 12: 05 AM RUG CLEANER PHOSPHORUS Routine 05/26/2024 12:05 AM RUG CLEANER COMPREHENSIVE METABOLIC PANEL Routine 05/26/2024 12:05 AM RUG CLEANER MAGNESIUM Routine 05/26/2024 12:05 AM RUG CLEANER CBC WITH AUTO DIFFERENTIAL Routine 05/26/2024 12:05 AM RUG CLEANER POCT GLUCOSE DEVICE Routine 05/25/2024 7 :44 PM RUG CLEANER POCT GLUCOSE DEVICE Routine 05/25/2024 5 :24 PM RUG CLEANER POCT GLUCOSE DEVICE Routine 05/25/2024 1 1:37 AM RUG CLEANER POCT GLUCOSE DEVICE Routine 05/25/2024 7 :27 AM RUG CLEANER EGFR Routine 05/25/2024 12:20 AM RUG CLEANER DIFFERENTIAL AUTO Routine 05/25/2024 12: 20 AM RUG CLEANER PHOSPHORUS Routine 05/25/2024 12:20 AM RUG CLEANER COMPREHENSIVE METABOLIC PANEL Routine 05/25/2024 12:20 AM RUG CLEANER MAGNESIUM Routine 05/25/2024 12:20 AM RUG CLEANER CBC WITH AUTO DIFFERENTIAL Routine 05/25/2024 12:20 AM RUG CLEANER POCT GLUCOSE DEVICE Routine 05/24/2024 8 :13 PM RUG CLEANER POCT GLUCOSE DEVICE Routine 05/24/2024 5 :17 PM RUG CLEANER POCT GLUCOSE DEVICE Routine 05/24/2024 1 2:49 PM RUG CLEANER POCT GLUCOSE DEVICE Routine 05/24/2024 9 :22 AM RUG CLEANER HERPES SIMPLEX VIRUS (HSV) PCR Routine 05/24/2024 8:47 AM RUG CLEANER POCT GLUCOSE DEVICE Routine 05/24/2024 8 :22 AM RUG CLEANER EGFR Routine 05/24/2024 12:29 AM RUG CLEANER DIFFERENTIAL AUTO Routine 05/24/2024 12: 29 AM RUG CLEANER PHOSPHORUS Routine 05/24/2024 12:29 AM RUG CLEANER COMPREHENSIVE METABOLIC PANEL Routine 05/24/2024 12:29 AM RUG CLEANER MAGNESIUM Routine 05/24/2024 12:29 AM RUG CLEANER CBC WITH AUTO DIFFERENTIAL Routine 05/24/2024 12:29 AM RUG CLEANER POCT GLUCOSE DEVICE Routine 05/23/2024 8 :16 PM RUG CLEANER POCT GLUCOSE DEVICE Routine 05/23/2024 6 :14 PM RUG CLEANER POCT GLUCOSE DEVICE Routine 05/23/2024 1 2:17 PM RUG CLEANER US VEIN DUPLEX LOWER EXTREMITY BILATERAL COMPLETE IP Routine 05/23/2024 11:45 AM RUG CLEANER POCT GLUCOSE DEVICE Routine 05/23/2024 8 :16 AM RUG CLEANER DIFFERENTIAL AUTO Routine 05/23/2024 2:3 0 AM RUG CLEANER CBC WITH AUTO DIFFERENTIAL Routine 05/23/2024 2:30 AM RUG CLEANER EGFR Routine 05/23/2024 12:42 AM RUG CLEANER LACTATE DEHYDROGENASE Routine 05/23/2024 12:42 AM RUG CLEANER URIC ACID Routine 05/23/2024 12:42 AM RUG CLEANER TYPE AND SCREEN Timed 05/23/2024 12:42 AM RUG CLEANER PHOSPHORUS Routine 05/23/2024 12:42 AM RUG CLEANER COMPREHENSIVE METABOLIC PANEL Routine 05/23/2024 12:42 AM RUG CLEANER MAGNESIUM Routine 05/23/2024 12:42 AM RUG CLEANER POCT GLUCOSE DEVICE Routine 05/22/2024 8 :56 PM RUG CLEANER POCT GLUCOSE DEVICE Routine 05/22/2024 6 :09 PM RUG CLEANER POCT GLUCOSE DEVICE Routine 05/22/2024 4 :[address] ABDOMEN PELVIS W CONTRAST ED 05/22/2024 2:32 PM RUG CLEANER POCT GLUCOSE DEVICE Routine 05/22/2024 1 2:58 PM RUG CLEANER POCT GLUCOSE DEVICE Routine 05/22/2024 9 :29 AM RUG CLEANER POCT GLUCOSE DEVICE Routine 05/22/2024 6 :[address] CHEST PE W CONTRAST ED 05/22/2024 1:31 AM RUG CLEANER D-DIMER, QUANTITATIVE Routine 05/22/2024 12:24 AM RUG CLEANER URINALYSIS, MICROSCOPIC ONLY Routine 05/21/2024 11:09 PM RUG CLEANER TROPONIN I HIGH-SENSITIVITY 2-HOUR Timed 05/21/2024 11:09 PM RUG CLEANER URINE CULTURE Routine 05/21/2024 11:09 PM RUG CLEANER RESPIRATORY PATHOGEN PANEL Routine 05/21/2024 11:09 PM RUG CLEANER URINALYSIS AND REFLEX TO MICROSCOPIC AND CULTURE Routine 05/21/2024 11:09 PM RUG CLEANER POCT GLUCOSE DEVICE Routine 05/21/2024 8 :55 PM RUG CLEANER TROPONIN I HIGH-SENSITIVITY 4-HOUR Timed 05/21/2024 7:26 PM RUG CLEANER LIPID PANEL STAT 05/21/2024 4:20 PM RUG CLEANER HEMOGLOBIN A1C STAT 05/21/2024 4:20 PM RUG CLEANER EGFR STAT 05/21/2024 4:20 PM RUG CLEANER DIFFERENTIAL AUTO STAT 05/21/2024 4:2 0 PM RUG CLEANER TROPONIN I HIGH-SENSITIVITY SERIES (BASELINE, 2HR, 4HR, 6HR) STAT 05/21/2024 4:20 PM RUG CLEANER COMPREHENSIVE METABOLIC PANEL STAT 05/21/2024 4:20 PM RUG CLEANER CBC WITH AUTO DIFFERENTIAL STAT 05/21/2024 4:20 PM RUG CLEANER XR CHEST PA LATERAL 2 VIEWS ED 05/21/2024 2:23 PM RUG CLEANER POCT GLUCOSE DEVICE Routine 05/21/2024 1 :39 PM RUG CLEANER ECG 12-LEAD STAT 05/21/2024 1:36 PM RUG CLEANER US AXILLARY LEFT Schedule Routine, Read Routine (OP Routine) 05/21/2024 12:13 PM RUG CLEANER History of breast cancer Axillary pain, left URINALYSIS, MICROSCOPIC ONLY Routine 05/14/2024 4:50 PM RUG CLEANER Malignant neoplasm of upper-inner quadrant of left breast in female, estrogen receptor positive (HCC) URINALYSIS AND REFLEX TO MICROSCOPIC AND CULTURE Routine 05/14/2024 4:50 PM RUG CLEANER Malignant neoplasm of upper-inner quadrant of left breast in female, estrogen receptor positive (HCC) XR RIBS LEFT 2 VIEWS Schedule Routine, Read Routine (OP Routine) 05/14/2024 4:44 PM RUG CLEANER Malignant neoplasm of upper-inner quadrant of left [...] breath since last night. 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 AR: VALERY Report ID: [id number] Reading Location: [id number] Procedure Note Juve Gallegos MD - 07/01/2024 [...] Juve Gallegos M.D. AR: VALERY Report ID: [id number] Reading Location: [id number] us Lila MCKEON IMG CT PROCEDURES Final Resu lt * (ABNORMAL) Troponin T high-sensitivity 2-hour (07/01/2024 3:43 PM CDT) Trop T hs 27(H) <=14 ng/L Comment: Interpretive Data For further hscTnT resources including the diagnostic algorithm and an aid in interpretation, copy and paste this link: https://nrl.testcatalog.org/show/hsTrop Current Interpretive Data last revised 2020. Testing performed by: [address] [address] Trop T hs delta 0 ng/L MARY JANE PHAM Comment:Testing performed by : [address] [address] Trop T hs interp Insignificant MARY JANE PHAM Comment:Testing performed by : [address] [address] Blood 07/01/2024 3:43 PM CDT 07/01/2024 3:52 PM CDT us Ilana Stevens MD LAB BLOOD ORDERABLES F inal Result MARY JANE [address] [facility] Department [place] [address] * (ABNORMAL) Urinalysis reflex to microscopic and culture Urine (07/01/2024 3:43 PM CDT) Color, ur Yellow Yellow Comment:Testing performed by : [address] [address] Clarity, ur Clear Clear MARY JANE PHAM Comment:Testing performed by : [address] [address] Specific gravity, ur 1.020 1.003 - 1.030 MARY JANE PHAM Comment:Testing performed by : [facility], [address] [place] [address], [place]., [address] pH, urine 6.0 MARY JANE Comment: Interpretive Data U rine pH is affected by diet, medications, systemic acid-base disturbances, and renal tubular function. pH may affect urinary stone formation. For example, urine pH below 6.0 may help reduce the tendency for calcium phosphate stones and pH greater than 6.0 may reduce the tendency for uric acid stone formation. Source: [facility] [employer] Current Interpretive Data was last revised on 2017 Testing performed by: [address], [place]., [address] Protein, ur ql Negative Negative MARY JANE Comment:Testing performed by : [address], [place]., [address] Glucose, ur ql 2+(A) Negative MARY JANE Comment:Testing performed by : [address], [place]., [address] Ketones, ur Negative Negative MARY JANE Comment:Testing performed by : [address], [place]., [address] Bilirubin, ur Negative Negative MARY JANE Comment:Testing performed by : [address], [place]., [address] Blood, ur Trace(A) Negative MARY JANE Comment:Testing performed by : [address], [place]., [address] Urobilinogen, ur <2.0 <2.0 mg/dL MARY JANE Comment:Testing performed by : [address], [place]., [address] Nitrite, ur Negative Negative MARY JANE Comment:Testing performed by : [address], [place]., [address] Leukocyte esterase, ur Negative Negative MARY JANE Comment:Testing performed by : [address] [address] UA reflex comment Reflex to microscopic UA will be performed. MARY JANE Comment:Testing performed by : [address], [place]., [address] Urine 07/01/2024 3:43 PM CDT 07/01/2024 3:52 PM CDT Ilana Stevens MD LAB MICROBIOLOGY - GEN ERAL ORDERABLES Final Result Performing Organization Address [facility] de Phone Number MARY JANE [facility] [place] [address] * (ABNORMAL) Urinalysis, microscopic only (07/01/2024 3:43 PM CDT) WBC, ur 0-5 0 - 5 /HPF Comment:Testing performed by : [address] [address] RBC, ur 3-5(A) 0 - 2 /HPF MARY JANE Comment:Testing performed by : [address] [address] Epithelial cells, squamous, ur 1-5 0 - 5 /HPF MARY JANE Comment:Testing performed by : [address] [address] Mucous, ur Present(A) MARY JANE Comment:Testing performed by : [address] [address] Culture Reflex Comment Reflex conditions for urine culture (WBC >10) not met. MARY JANE Comment:Testing performed by : [address] [address] Urine 07/01/2024 3:43 PM CDT 07/01/2024 3:52 PM CDT Ilana Stevens MD LAB URINE ORDERABLES F inal Result Performing Organization Address [facility] Co de Phone Number MARY JANE [address] [facility] [place] [employer] [address] * XR Chest 1 Vw Portable (if [...] Romelia Bowen D.O. PS: PS Report ID: [id number] Reading Location: [id number] Procedure Note Romelia Bowen, - 07/01/2024 EXAM [...] Romelia Bowen D.O. PS: PS Report ID: [id number] Reading Location: [id number] Ilana Stevens MD IMG XR PROCEDURES Deann l Result * ECG 12 lead (07/01/2024 2:05 PM CDT) Ventricular Rate EKG/Min 76 BPM [facility] Atrial Rate 76 BPM [facility] WY-Interval (MSEC) 130 ms [facility] QRS-Interval (MSEC) 86 ms [facility] QT-Interval (MSEC) 386 ms [facility] QTc 434 ms [facility] P Pip[place]em 26 degrees [facility] R [place]ip[place]em 22 degrees [facility] T Pipestem 46 degrees [facility] Diagnosis Normal sinus rhythm Normal ECG When compared with ECG of 28-DEC-2023 12:49, No significant change was found Confirmed by DUTCH BURGOS M.D. ([id number]) on 07/01/2024 10:10:22 PM [facility] 07/01/2024 2:05 PM CDT 07/01/2024 10:10 PM CDT us Ilana Stevens MD ECG ORDERABLES Final Result Performing Organization Address City/[facility]/ZIP Co de Phone Number [facility] * (ABNORMAL) Troponin T high-sensitivity series (baseline, 2hr, 4hr, 6hr) (07/01/2024 2:02 PM CDT) Pathologist [facility] Trop T hs 27(H) <=14 ng/L Comment: Interpretive Data For further hscTnT resources including the diagnostic algorithm and an aid in interpretation, copy and paste this link: https://nrl.testcatalog.org/show/hsTrop Current Interpretive Data last revised 2020. Testing performed by: [facility], [address] [place] [address]., [address] Blood 07/01/2024 2:02 PM CDT 07/01/2024 2:12 PM CDT us Ilana Stevens MD LAB BLOOD ORDERABLES F inal Result MARY JANE [address] [facility] Department [place] [address] * Influenza A/B, RSV, and COVID-19 PCR Nasopharyngeal (07/01/2024 2:02 PM CDT) [facility] COVID-19 RNA Negative Negative Comment:Testing performed by : [address] [address] Influenza A RNA Negative Negative [facility] Comment:Testing performed by : [address] [address] Influenza B RNA Negative Negative [facility] Comment:Testing performed by : [address] [address] RSV RNA Negative Negative [facility] Comment: Interpretive data: Testing performed by [facility]. This test is performed using the [employer] Xpert Xpress CoV-2/Flu/RSV plus assay. This is a multiplex, real-time reverse transcriptase PCR assay intended for the qualitative detection of nucleic acid from SARS-CoV-2, influenza A, influenza B, and respiratory syncytial virus. This assay has been cleared by the [place] Food and Drug administration. The performance characteristics have been verified by the [facility]. Results must be considered in the clinical context, and a negative result does not rule out infection. Interpretive Data last revised 2023 Testing performed by: [address] [address] Nasopharyngeal 07/01/2024 2: 02 PM CDT 07/01/2024 2:12 PM CDT Narrative [facility] - 07/01/2024 2:52 PM CDT Is the Patient experiencing symptoms consistent with COVID?->Yes us Ilana Stevens MD LAB MICROBIOLOGY - GEN ERAL ORDERABLES Final Result [facility] [place] [facility] [address] [facility] Department [place] [address] * eGFR (07/01/2024 2:02 PM CDT) [facility] eGFR >90 >=60 mL/min/1. 73 m2 [...] last reviewed 2021. Testing performed by: [address] [address] Blood 07/01/2024 2:02 PM CDT 07/01/2024 2:12 PM CDT us Ilana Stevens MD LAB BLOOD ORDERABLES F inal Result [place] [id number] [facility] Department of Laboratories [place], [place] [id number] * Differential, auto (07/01/2024 2:02 PM CDT) Neutrophil abs 5.3 1.5 - 6.5 K/cumm Comment:Testing performed by : [address] [address] Imm gran abs 0.0 0.0 - 0.1 K/cumm MARY JANE Comment:Testing performed by : [address] [address] Lymphocyte abs 2.6 0.8 - 3.3 K/cumm MARY JANE Comment:Testing performed by : [address] [address] Monocyte abs 0.8 0.2 - 0.8 K/cumm MARY JANE Comment:Testing performed by : [address] [address] Eosinophil abs 0.2 0.0 - 0.5 K/cumm MARY JANE Comment:Testing performed by : [address] [address] Basophil abs 0.0 0.0 - 0.1 K/cumm MARY JANE Comment:Testing performed by : [address] [address] Neutrophil pct 59.1 % [facility] Comment: Interpretive Data Percent cell count reference ranges are not reported, since discordance with absolute values may lead to misinterpretation of CBC data. Current Interpretive Data was last revised on 2017. Testing performed by: [address] [address] Imm gran pct 0.2 % [facility] Comment: Interpretive Data Percent cell count reference ranges are not reported, since discordance with absolute values may lead to misinterpretation of CBC data. Current Interpretive Data was last revised on 2017. Testing performed by: [address] [address] Lymphocyte pct 29.0 % [facility] Comment: Interpretive Data Percent cell count reference ranges are not reported, since discordance with absolute values may lead to misinterpretation of CBC data. Current Interpretive Data was last revised on 2017. Testing performed by: [address] [address] Monocyte pct 9.3 % [facility] Comment: Interpretive Data Percent cell count reference ranges are not reported, since discordance with absolute values may lead to misinterpretation of CBC data. Current Interpretive Data was last revised on 2017. Testing performed by: [address] [address] Eosinophil pct 2.2 % [facility] Comment: Interpretive Data Percent cell count reference ranges are not reported, since discordance with absolute values may lead to misinterpretation of CBC data. Current Interpretive Data was last revised on 2017. Testing performed by: [address] [address] Basophil pct 0.2 % [facility] Comment: Interpretive Data Percent cell count reference ranges are not reported, since discordance with absolute values may lead to misinterpretation of CBC data. Current Interpretive Data was last revised on 2017. Testing performed by: [facility], [address] [place] [address]., [address] Blood 07/01/2024 2:02 PM CDT 07/01/2024 2:12 PM CDT us Ilana Stevens MD LAB BLOOD ORDERABLES F inal Result MARY JANE [address] [facility] Department [place] [address] * Pro B-type natriuretic peptide [...] Date: 2017. Testing performed by: [facility], [address] [place] [address]., [address] Blood 07/01/2024 2:02 PM CDT 07/01/2024 2:12 PM CDT us Ilana Stevens MD LAB BLOOD ORDERABLES F inal Result [facility] [address] [facility] [place] [address] * (ABNORMAL) CBC with auto differential (07/01/2024 2:02 PM CDT) Pathologist [facility] WBC 9.0 3.8 - 9.9 K/cumm Comment:Testing performed by : [address] [address] Hgb 13.2 11.9 - 15.5 g/dL MARY JANE Comment:Testing performed by : [address], [address] Hct 41.1 35.6 - 45.5 % MARY JANE Comment:Testing performed by : [address] [address] Plt 277 150 - 400 K/cumm MARY JANE Comment:Testing performed by : [address] [address] MPV 9.5 9.1 - 12.3 fL MARY JANE Comment:Testing performed by : [address] [address] RBC 4.53 3.90 - 5.20 M/cumm MARY JANE Comment:Testing performed by : [address] [address] MCV 90.7 81.3 - 96.4 fL MARY JANE Comment:Testing performed by : [address] [address] MCH 29.1 27.1 - 33.3 pg MARY JANE PHAM Comment:Testing performed by : [address] [address] MCHC 32.1(L) 32.3 - 35.7 g/dL MARY JANE Comment:Testing performed by : [address] [place] [address] RDW CV 13.2 11.1 - 14.9 % MARY JANE PHAM Comment:Testing performed by : [address] [address] RDW SD 44.2 35.7 - 48.1 fL MARY JANE PHAM Comment:Testing performed by : [facility], [address] [place] [address]., [address] NRBC abs 0.00 0.00 - 0.01 K/cumm MARY JANE Comment:Testing performed by : [address] [address] Blood 07/01/2024 2:02 PM CDT 07/01/2024 2:12 PM CDT us Ilana Stevens MD LAB BLOOD ORDERABLES F inal Result MARY JANE [facility] Department [place] [address] * Comprehensive metabolic panel (07/01/2024 2:02 PM CDT) Sodium 137 135 - 145 mmol/L Comment:Testing performed by : [address] [address] Potassium, pl 4.2 3.3 - 4.9 mmol/L MARY JANE Comment:Testing performed by : [address] [address] Chloride 101 97 - 110 mmol/L MARY JANE Comment:Testing performed by : [address] [address] CO2 27 22 - 32 mmol/L MARY JANE Comment:Testing performed by : [address] [address] Anion gap 9 2 - 15 mmol/L MARY JANE Comment:Testing performed by : [address] [address] BUN 15 6 - 25 mg/dL MARY JANE Comment:Testing performed by : [address] [address] Creatinine 0.60 0.60 - 1.10 mg/dL MARY JANE Comment:Testing performed by : [address] [address] Glucose 166 70 - 199 mg/dL MARY [...] last revised 2022. Testing performed by: [address] [address] Calcium 9.8 8.5 - 10.3 mg/dL MARY JANE Comment:Testing performed by : [address] [address] Bilirubin, total 0.5 0.1 - 1.2 mg/dL MARY JANE Comment:Testing performed by : [address] [address] Protein, pl 8.0 6.5 - 8.5 g/dL MARY JANE Comment:Testing performed by : [address] [address] Albumin 3.8 3.5 - 5.0 g/dL MARY JANE Comment:Testing performed by : [address] [address] Alk phos 72 40 - 130 Units/L MARY JANE Comment:Testing performed by : [address] [address] ALT 19 7 - 45 Units/L MARY JANE Comment:Testing performed by : [address] [address] AST 23 10 - 45 Units/L MARY JANE Comment:Testing performed by : [address] [address] Blood 07/01/2024 2:02 PM CDT 07/01/2024 2:12 PM CDT Ilana Stevens MD LAB BLOOD ORDERABLES F inal Result MARY JANE [address] [facility] Department [place] [address] * POCT glucose (05/26/2024 4:27 PM RUG CLEANER) Glucose, POC 137 70 - 199 mg/dL Blood 05/26/2024 4:27 PM RUG CLEANER 05/26/2024 4:27 PM RUG CLEANER Carlos Real MD LAB POCT ORDERABLES - DEVICE Fin al Result Performing Organization Address [facility] de Phone Number BCPUJA [facility] [place] [employer] [place] [address] * POCT glucose (05/26/2024 11:38 AM RUG CLEANER) Glucose, POC 146 70 - 199 mg/dL Blood 05/26/2024 11:3 8 AM RUG CLEANER 05/26/2024 11:38 AM RUG CLEANER Carlos Real MD LAB POCT ORDERABLES - DEVICE Fin al Result Performing Organization Address [facility] Co de Phone Number MARY JANE [facility] [place] [address] * POCT glucose (05/26/2024 8:12 AM RUG CLEANER) Glucose, POC 134 70 - 199 mg/dL Blood 05/26/2024 8:12 AM RUG CLEANER 05/26/2024 8:12 AM RUG CLEANER Carlos Real MD LAB POCT ORDERABLES - DEVICE Fin al Result Performing Organization Address City/[facility] Co de Phone Number MARY JANE [facility] [place] [employer] [place] [address] * eGFR (05/26/2024 12:05 AM RUG CLEANER) Pathologist [facility] eGFR >90 >=60 mL/min/1. 73 m2 Comment: [...] reviewed 2021. Blood 05/26/2024 12:0 5 AM RUG CLEANER 05/26/2024 12:23 AM RUG CLEANER Carlos Real MD LAB BLOOD ORDERABLES Final Resul t [facility] [place] [address] * (ABNORMAL) Differential, auto (05/26/2024 12:05 AM RUG CLEANER) Pathologist [facility] Neutrophil abs 6.4 1.5 - 6.5 K/cumm Imm gran abs 0.0 0.0 - 0.1 K/cumm [facility] Lymphocyte abs 2.9 0.8 - 3.3 K/cumm [facility] Monocyte abs 0.9(H) 0.2 - 0.8 K/cumm [facility] Eosinophil abs 0.3 0.0 - 0.5 K/cumm [facility] Basophil abs 0.0 0.0 - 0.1 K/cumm [facility] Neutrophil pct 60.4 % [facility] Comment: Interpretive Data Percent cell count reference ranges are not reported, since discordance with absolute values may lead to misinterpretation of CBC data. Current Interpretive Data was last revised on 2017. Imm gran pct 0.4 % [facility] Comment: Interpretive Data Percent cell count reference ranges are not reported, since discordance with absolute values may lead to misinterpretation of CBC data. Current Interpretive Data was last revised on 2017. Lymphocyte pct 27.5 % [facility] Comment: Interpretive Data Percent cell count reference ranges are not reported, since discordance with absolute values may lead to misinterpretation of CBC data. Current Interpretive Data was last revised on 2017. Monocyte pct 8.2 % [facility] Comment: Interpretive Data Percent cell count reference ranges are not reported, since discordance with absolute values may lead to misinterpretation of CBC data. Current Interpretive Data was last revised on 2017. Eosinophil pct 3.1 % [facility] Comment: Interpretive Data Percent cell count reference ranges are not reported, since discordance with absolute values may lead to misinterpretation of CBC data. Current Interpretive Data was last revised on 2017. Basophil pct 0.4 % [facility] Comment: Interpretive Data Percent cell count reference ranges are not reported, since discordance with absolute values may lead to misinterpretation of CBC data. Current Interpretive Data was last revised on 2017. Blood 05/26/2024 12:0 5 AM RUG CLEANER 05/26/2024 12:07 AM RUG CLEANER Carlos Real MD LAB BLOOD ORDERABLES Final Resul t [facility] Department [place] [address] * (ABNORMAL) CBC with auto differential (05/26/2024 12:05 AM RUG CLEANER) WBC 10.6(H) 3.8 - 9.9 K/cumm Hgb 12.5 11.9 - 15.5 g/dL [facility] Hct 39.2 35.6 - 45.5 % [facility] Plt 248 150 - 400 K/cumm [facility] MPV 9.7 9.1 - 12.3 fL [facility] RBC 4.32 3.90 - 5.20 M/cumm [facility] MCV 90.7 81.3 - 96.4 fL [facility] MCH 28.9 27.1 - 33.3 pg [facility] MCHC 31.9(L) 32.3 - 35.7 g/dL [facility] RDW CV 13.5 11.1 - 14.9 % [facility] RDW SD 45.1 35.7 - 48.1 fL [facility] NRBC abs 0.00 0.00 - 0.01 K/cumm [facility] Blood 05/26/2024 12:0 5 AM RUG CLEANER 05/26/2024 12:07 AM RUG CLEANER Carlos Real MD LAB BLOOD ORDERABLES Final Resul t Performing Organization Address City/[facility] Co de Phone Number [facility] [place] [address] * Phosphorus (05/26/2024 12:05 AM RUG CLEANER) Phosphorus, pl 3.2 2.3 - 4.5 mg/dL Blood 05/26/2024 12:0 5 AM RUG CLEANER 05/26/2024 12:08 AM RUG CLEANER Carlos Real MD LAB BLOOD ORDERABLES Final Resul t [facility] [place] [address] * Magnesium (05/26/2024 12:05 AM RUG CLEANER) Magnesium 1.8 1.4 - 2.5 mg/dL Blood 05/26/2024 12:0 5 AM RUG CLEANER 05/26/2024 12:08 AM RUG CLEANER Carlos Real MD LAB BLOOD ORDERABLES Final Resul t Performing Organization Address [facility] Co de Phone Number [facility] [place] [address] * (ABNORMAL) Comprehensive metabolic panel (05/26/2024 12:05 AM RUG CLEANER) Sodium 136 135 - 145 mmol/L Potassium, pl 4.2 3.3 - 4.9 mmol/L [facility] Chloride 101 97 - 110 mmol/L [facility] CO2 29 22 - 32 mmol/L [facility] Anion gap 6 2 - 15 mmol/L [facility] BUN 19 6 - 25 mg/dL [facility] Creatinine 0.67 0.60 - 1.10 mg/dL [facility] Glucose 164 70 - 199 mg/dL [facility] Comment: Interpretive Data Fasting glucose >/= 126 [...] 2022. Calcium 9.4 8.5 - 10.3 mg/dL [facility] Bilirubin, total 0.4 0.1 - 1.2 mg/dL [facility] Protein, pl 7.1 6.5 - 8.5 g/dL [facility] Albumin 3.3(L) 3.5 - 5.0 g/dL [facility] Alk phos 65 40 - 130 Units/L [facility] ALT 17 7 - 45 Units/L [facility] AST 19 10 - 45 Units/L [facility] Blood 05/26/2024 12:0 5 AM RUG CLEANER 05/26/2024 12:08 AM RUG CLEANER Carlos Real MD LAB BLOOD ORDERABLES Final Resul t Performing Organization Address City/State/[facility] Co de Phone Number [facility] [place] [employer] [place] [address] * POCT glucose (05/25/2024 7:44 PM RUG CLEANER) Glucose, POC 160 70 - 199 mg/dL Blood 05/25/2024 7:44 PM RUG CLEANER 05/25/2024 7:44 PM RUG CLEANER Carlos Real MD LAB POCT ORDERABLES - DEVICE Fin al Result Performing Organization Address [facility] [place] [address] * POCT glucose (05/25/2024 5:24 PM RUG CLEANER) Glucose, POC 152 70 - 199 mg/dL Blood 05/25/2024 5:24 PM RUG CLEANER 05/25/2024 5:24 PM RUG CLEANER Carlos Real MD LAB POCT ORDERABLES - DEVICE Fin al Result Performing Organization Address [facility] Co de Phone Number [facility] [place] [employer] [place] [address] * POCT glucose (05/25/2024 11:37 AM RUG CLEANER) Glucose, POC 143 70 - 199 mg/dL Blood 05/25/2024 11:3 7 AM RUG CLEANER 05/25/2024 11:37 AM RUG CLEANER Carlos Real MD LAB POCT ORDERABLES - DEVICE Fin al Result Performing Organization Address [facility] Co de Phone Number [facility] [place] [employer] [place] [address] * POCT glucose (05/25/2024 7:27 AM RUG CLEANER) Glucose, POC 134 70 - 199 mg/dL Blood 05/25/2024 7:27 AM RUG CLEANER 05/25/2024 7:27 AM RUG CLEANER Carlos Real MD LAB POCT ORDERABLES - DEVICE Fin al Result Performing Organization Address [facility] Co de Phone Number [facility] [place] [address] * eGFR (05/25/2024 12:20 AM RUG CLEANER) Pathologist [facility] eGFR >90 >=60 mL/min/1. 73 m2 Comment: [...] reviewed 2021. Blood 05/25/2024 12:2 0 AM RUG CLEANER 05/25/2024 12:43 AM RUG CLEANER Naila Guzman [employer] LAB BLOOD ORDERABLES Final Result Performing Organization Address [facility]/ZIP Co de Phone Number [facility] Department [place] [address] * Differential, auto (05/25/2024 12:20 AM RUG CLEANER) Pathologist [facility] Neutrophil abs 5.9 1.5 - 6.5 K/cumm Imm gran abs 0.0 0.0 - 0.1 K/cumm [facility] Lymphocyte abs 2.4 0.8 - 3.3 K/cumm [facility] Monocyte abs 0.8 0.2 - 0.8 K/cumm [facility] Eosinophil abs 0.3 0.0 - 0.5 K/cumm [facility] Basophil abs 0.0 0.0 - 0.1 K/cumm [facility] Neutrophil pct 62.6 % [facility] Comment: Interpretive Data Percent cell count reference ranges are not reported, since discordance with absolute values may lead to misinterpretation of CBC data. Current Interpretive Data was last revised on 2017. Imm gran pct 0.3 % [facility] Comment: Interpretive Data Percent cell count reference ranges are not reported, since discordance with absolute values may lead to misinterpretation of CBC data. Current Interpretive Data was last revised on 2017. Lymphocyte pct 24.8 % [facility] Comment: Interpretive Data Percent cell count reference ranges are not reported, since discordance with absolute values may lead to misinterpretation of CBC data. Current Interpretive Data was last revised on 2017. Monocyte pct 8.8 % [facility] Comment: Interpretive Data Percent cell count reference ranges are not reported, since discordance with absolute values may lead to misinterpretation of CBC data. Current Interpretive Data was last revised on 2017. Eosinophil pct 3.2 % [facility] Comment: Interpretive Data Percent cell count reference ranges are not reported, since discordance with absolute values may lead to misinterpretation of CBC data. Current Interpretive Data was last revised on 2017. Basophil pct 0.3 % [facility] Comment: Interpretive Data Percent cell count reference ranges are not reported, since discordance with absolute values may lead to misinterpretation of CBC data. Current Interpretive Data was last revised on 2017. Blood 05/25/2024 12:2 0 AM RUG CLEANER 05/25/2024 12:29 AM RUG CLEANER us Naila Guzman NP LAB BLOOD ORDERABLES Final Result [facility] [place] [address] * (ABNORMAL) CBC with auto differential (05/25/2024 12:20 AM RUG CLEANER) [facility] WBC 9.5 3.8 - 9.9 K/cumm Hgb 12.8 11.9 - 15.5 g/dL [facility] Hct 40.0 35.6 - 45.5 % [facility] Plt 246 150 - 400 K/cumm [facility] MPV 9.8 9.1 - 12.3 fL [facility] RBC 4.42 3.90 - 5.20 M/cumm [facility] MCV 90.5 81.3 - 96.4 fL [facility] MCH 29.0 27.1 - 33.3 pg [facility] MCHC 32.0(L) 32.3 - 35.7 g/dL [facility] RDW CV 13.5 11.1 - 14.9 % [facility] RDW SD 45.3 35.7 - 48.1 fL [facility] NRBC abs 0.00 0.00 - 0.01 K/cumm [facility] Blood 05/25/2024 12:2 0 AM RUG CLEANER 05/25/2024 12:29 AM RUG CLEANER Naila Guzman NP LAB BLOOD ORDERABLES Final Result Performing Organization Address City/[facility] Co de Phone Number [facility] [place] [address] * Phosphorus (05/25/2024 12:20 AM RUG CLEANER) [facility] Phosphorus, pl 3.1 2.3 - 4.5 mg/dL Blood 05/25/2024 12:2 0 AM RUG CLEANER 05/25/2024 12:29 AM RUG CLEANER Naila Guzman NP LAB BLOOD ORDERABLES Final Result [facility] [place] [address] * Magnesium (05/25/2024 12:20 AM RUG CLEANER) Magnesium 1.9 1.4 - 2.5 mg/dL Blood 05/25/2024 12:2 0 AM RUG CLEANER 05/25/2024 12:29 AM RUG CLEANER Naila Guzman [employer] LAB BLOOD ORDERABLES Final Result [facility] Department [place] [address] * (ABNORMAL) Comprehensive metabolic panel (05/25/2024 12:20 AM RUG CLEANER) Pathologist [facility] Sodium 138 135 - 145 mmol/L Potassium, pl 4.4 3.3 - 4.9 mmol/L [facility] Chloride 101 97 - 110 mmol/L [facility] CO2 29 22 - 32 mmol/L [facility] Anion gap 8 2 - 15 mmol/L [facility] BUN 20 6 - 25 mg/dL [facility] Creatinine 0.69 0.60 - 1.10 mg/dL [facility] Glucose 156 70 - 199 mg/dL [facility] Comment: Interpretive Data Fasting glucose >/= 126 [...] 2022. Calcium 9.4 8.5 - 10.3 mg/dL [facility] Bilirubin, total 0.5 0.1 - 1.2 mg/dL [facility] Protein, pl 7.4 6.5 - 8.5 g/dL [facility] Albumin 3.4(L) 3.5 - 5.0 g/dL [facility] Alk phos 67 40 - 130 Units/L [facility] ALT 18 7 - 45 Units/L [facility] AST 16 10 - 45 Units/L [facility] Blood 05/25/2024 12:2 0 AM RUG CLEANER 05/25/2024 12:29 AM RUG CLEANER Naila Guzman [employer] LAB BLOOD ORDERABLES Final Result Performing Organization Address [facility] Co de Phone Number [facility] [place] [employer] [place] [address] * POCT glucose (05/24/2024 8:13 PM RUG CLEANER) Glucose, POC 171 70 - 199 mg/dL Blood 05/24/2024 8:13 PM RUG CLEANER 05/24/2024 8:13 PM RUG CLEANER Carlos Real MD LAB POCT ORDERABLES - DEVICE Fin al Result Performing Organization Address [facility] de Phone Number [facility] [place] [address] * POCT glucose (05/24/2024 5:17 PM RUG CLEANER) Glucose, POC 133 70 - 199 mg/dL Blood 05/24/2024 5:17 PM RUG CLEANER 05/24/2024 5:17 PM RUG CLEANER Carlos Real MD LAB POCT ORDERABLES - DEVICE Fin al Result Performing Organization Address [facility] de Phone Number [facility] [place] [employer] [place] [address] * POCT glucose (05/24/2024 12:49 PM RUG CLEANER) Glucose, POC 180 70 - 199 mg/dL Blood 05/24/2024 12:4 9 PM RUG CLEANER 05/24/2024 12:49 PM RUG CLEANER Result [facility] Carlos Real MD LAB POCT ORDERABLES - DEVICE Fin al Result Performing Organization Address City/[facility] Co de Phone Number [facility] [place] [employer] [place] [address] * POCT glucose (05/24/2024 9:22 AM RUG CLEANER) Pathologist [facility] Glucose, POC 139 70 - 199 mg/dL Blood 05/24/2024 9:22 AM RUG CLEANER 05/24/2024 9:22 AM RUG CLEANER Result [facility] Carlos Real MD LAB POCT ORDERABLES - DEVICE Fin al Result Performing Organization Address [facility] [place] [address] * Herpes Simplex Virus (HSV) PCR Oral (05/24/2024 8:47 AM RUG CLEANER) [facility] HSV DNA Not Detected Not Detected [facility] Comment: Interpretive Data This assay is [...] reviewed on 08/21/2018 Oral 05/24/2024 8:47 AM RUG CLEANER 05/24/2024 9:24 AM RUG CLEANER Narrative [facility] - 05/24/2024 4:28 PM RUG CLEANER Oral ulcer swab Result [facility] Naila Guzman NP LAB MICROBIOLOGY - GENERAL ORDERABLES Final Result Performing Organization Address City/[facility] Co de Phone Number [facility] [place] [employer] [place] [address] [facility] * POCT glucose (05/24/2024 8:22 AM RUG CLEANER) Glucose, POC 132 70 - 199 mg/dL Blood 05/24/2024 8:22 AM RUG CLEANER 05/24/2024 8:22 AM RUG CLEANER Carlos Real MD LAB POCT ORDERABLES - DEVICE Fin al Result Performing Organization Address City/[facility]/ZIP Co de Phone Number [facility] [place] [address] * eGFR (05/24/2024 12:29 AM RUG CLEANER) eGFR 87 >=60 mL/min/1. 73 m2 Comment: [...] reviewed 2021. Blood 05/24/2024 12:2 9 AM RUG CLEANER 05/24/2024 12:54 AM RUG CLEANER us Naila Guzman [employer] LAB BLOOD ORDERABLES Final Result Performing Organization Address [facility]/ZIP Co de Phone Number [facility] [place] [address] * (ABNORMAL) Differential, auto (05/24/2024 12:29 AM RUG CLEANER) Neutrophil abs 5.3 1.5 - 6.5 K/cumm Imm gran abs 0.0 0.0 - 0.1 K/cumm [facility] Lymphocyte abs 3.0 0.8 - 3.3 K/cumm [facility] Monocyte abs 0.9(H) 0.2 - 0.8 K/cumm [facility] Eosinophil abs 0.3 0.0 - 0.5 K/cumm [facility] Basophil abs 0.0 0.0 - 0.1 K/cumm [facility] Neutrophil pct 55.8 % [facility] Comment: Interpretive Data Percent cell count reference ranges are not reported, since discordance with absolute values may lead to misinterpretation of CBC data. Current Interpretive Data was last revised on 2017. Imm gran pct 0.4 % [facility] Comment: Interpretive Data Percent cell count reference ranges are not reported, since discordance with absolute values may lead to misinterpretation of CBC data. Current Interpretive Data was last revised on 2017. Lymphocyte pct 31.4 % [facility] Comment: Interpretive Data Percent cell count reference ranges are not reported, since discordance with absolute values may lead to misinterpretation of CBC data. Current Interpretive Data was last revised on 2017. Monocyte pct 9.0 % [facility] Comment: Interpretive Data Percent cell count reference ranges are not reported, since discordance with absolute values may lead to misinterpretation of CBC data. Current Interpretive Data was last revised on 2017. Eosinophil pct 3.0 % [facility] Comment: Interpretive Data Percent cell count reference ranges are not reported, since discordance with absolute values may lead to misinterpretation of CBC data. Current Interpretive Data was last revised on 2017. Basophil pct 0.4 % [facility] Comment: Interpretive Data Percent cell count reference ranges are not reported, since discordance with absolute values may lead to misinterpretation of CBC data. Current Interpretive Data was last revised on 2017. Blood 05/24/2024 12:2 9 AM RUG CLEANER 05/24/2024 12:54 AM RUG CLEANER Naila Guzman NP LAB BLOOD ORDERABLES Final Result Performing Organization Address City/[facility]/ZIP Co de Phone Number [facility] [place] [address] * CBC with auto differential (05/24/2024 12:29 AM RUG CLEANER) Pathologist [facility] WBC 9.5 3.8 - 9.9 K/cumm Hgb 12.6 11.9 - 15.5 g/dL [facility] Hct 39.0 35.6 - 45.5 % [facility] Plt 223 150 - 400 K/cumm [facility] MPV 9.6 9.1 - 12.3 fL [facility] RBC 4.23 3.90 - 5.20 M/cumm [facility] MCV 92.2 81.3 - 96.4 fL [facility] MCH 29.8 27.1 - 33.3 pg [facility] MCHC 32.3 32.3 - 35.7 g/dL [facility] RDW CV 13.7 11.1 - 14.9 % [facility] RDW SD 46.5 35.7 - 48.1 fL [facility] NRBC abs 0.00 0.00 - 0.01 K/cumm [facility] Blood 05/24/2024 12:2 9 AM RUG CLEANER 05/24/2024 12:54 AM RUG CLEANER Naila Guzman NP LAB BLOOD ORDERABLES Final Result Performing Organization Address City/[facility]/ZIP Co de Phone Number [facility] [place] [address] * Phosphorus (05/24/2024 12:29 AM RUG CLEANER) Pathologist [facility] Phosphorus, pl 3.6 2.3 - 4.5 mg/dL Blood 05/24/2024 12:2 9 AM RUG CLEANER 05/24/2024 12:54 AM RUG CLEANER Naila Guzman NP LAB BLOOD ORDERABLES Final Result [facility] [place] [address] * Magnesium (05/24/2024 12:29 AM RUG CLEANER) Pathologist [facility] Magnesium 1.9 1.4 - 2.5 mg/dL Blood 05/24/2024 12:2 9 AM RUG CLEANER 05/24/2024 12:54 AM RUG CLEANER Naila Guzman NP LAB BLOOD ORDERABLES Final Result Performing Organization Address [facility] Co de Phone Number [facility] [place] [address] * (ABNORMAL) Comprehensive metabolic panel (05/24/2024 12:29 AM RUG CLEANER) [facility] Sodium 139 135 - 145 mmol/L Potassium, pl 4.3 3.3 - 4.9 mmol/L [facility] Chloride 103 97 - 110 mmol/L [facility] CO2 29 22 - 32 mmol/L [facility] Anion gap 7 2 - 15 mmol/L [facility] BUN 19 6 - 25 mg/dL [facility] Creatinine 0.75 0.60 - 1.10 mg/dL [facility] Glucose 157 70 - 199 mg/dL [facility] Comment: Interpretive Data Fasting glucose >/= 126 [...] 2022. Calcium 9.2 8.5 - 10.3 mg/dL [facility] Bilirubin, total 0.4 0.1 - 1.2 mg/dL [facility] Protein, pl 7.1 6.5 - 8.5 g/dL [facility] Albumin 3.3(L) 3.5 - 5.0 g/dL [facility] Alk phos 65 40 - 130 Units/L [facility] ALT 18 7 - 45 Units/L [facility] AST 17 10 - 45 Units/L [facility] Blood 05/24/2024 12:2 9 AM RUG CLEANER 05/24/2024 12:54 AM RUG CLEANER Naila Guzman [employer] LAB BLOOD ORDERABLES Final Result Performing Organization Address [facility] Co de Phone Number [facility] [place] [employer] [place] [address] * POCT glucose (05/23/2024 8:16 PM RUG CLEANER) Glucose, POC 145 70 - 199 mg/dL Blood 05/23/2024 8:16 PM RUG CLEANER 05/23/2024 8:16 PM RUG CLEANER Result [facility] Carlos Real MD LAB POCT ORDERABLES - DEVICE Fin al Result Performing Organization Address City/[facility] Co de Phone Number [facility] [place] [employer] [place] [address] * POCT glucose (05/23/2024 6:14 PM RUG CLEANER) Glucose, POC 181 70 - 199 mg/dL Blood 05/23/2024 6:14 PM RUG CLEANER 05/23/2024 6:14 PM RUG CLEANER Carlos Real MD LAB POCT ORDERABLES - DEVICE Fin al Result Performing Organization Address [facility] Co de Phone Number [facility] [place] [employer] [place] [address] * POCT glucose (05/23/2024 12:17 PM RUG CLEANER) Glucose, POC 159 70 - 199 mg/dL Blood 05/23/2024 12:1 7 PM RUG CLEANER 05/23/2024 12:17 PM RUG CLEANER us Cem Knapp MD LAB POCT ORDERABLES - DEVIC E Final Result [facility] Department [place] [address] * US Vein Duplex Lower Extremity Bilateral Complete (05/23/2024 11:45 AM RUG CLEANER) LV EF % CONS SCIMAGE Anatomical Region Laterality Modality Vascular Bilateral Ultrasound 05/23/2024 11:1 2 AM RUG CLEANER Narrative 05/23/2024 9:43 PM RUG CLEANER [facility] - Department of Vascular Surgery, Vascular Laboratory [address] [place] [id number] Lower Extremity Venous Ultrasound Report Patient Name: MOHSEN MARQUES M : 1955 (68y 11m) Study Date: 05/23/2024 11:12:03 AM Gender: F Tech: VELVET Location: [id number] Ref Provider: CARLOS REAL Quality: Adequate Order Provider: CARLOS REAL PROCEDURES: Vascular Report: Venous Duplex imaging was performed bilaterally in the lower extremities. The common femoral, femoral, popliteal, posterior tibial, peroneal veins were evaluated for patency, spontaneity and phasicity with Doppler, compression and augmentation maneuvers. Great saphenous vein proximal at the junction was evaluated with compression maneuvers. INDICATIONS: Localized edema. FINDINGS: Performing Costume Designer: Marlys Castillo RVT. Bilateral: Venous Doppler signals [...] Vu Obregon MD FACS 05/23/2024 9:42:19 PM RUG CLEANER Procedure Note Vu Obregon MD - 05/23/2024 [facility] - Department of Vascular Surgery,Vascular Laboratory [address] [place] [id number] Lower Extremity Venous Ultrasound Report Patient Name: MOHSEN MRAQUES M : 1955 (68y 11m) Study Date: 05/23/2024 11:12:03 AM Gender: F Tech: VELVET Location: [id number] Ref Provider: CARLOS REAL Quality: Adequate Order Provider: CARLOS REAL PROCEDURES: Vascular Report: Venous Duplex imaging was performed bilaterally in the lower extremities.The common femoral, femoral, popliteal, posterior tibial, peroneal veins wereevaluated for patency, spontaneity and phasicity with Doppler, compression and augmentationmaneuvers. Great saphenous vein proximal at the junction was evaluated with compressionmaneuvers. INDICATIONS: Localized edema. FINDINGS: Performing Costume Designer: Marlys Castillo RVT. Bilateral: Venous Doppler signals [...] Vu Obregon MD, FACS 05/23/2024 9:42:19 PM RUG CLEANER us Carlosmady Real MD [facility] [place] PROCEDURES Final Result * (ABNORMAL) POCT glucose (05/23/2024 8:16 AM RUG CLEANER) Glucose, POC 204(H) 70 - 199 mg/dL Blood 05/23/2024 8:16 AM RUG CLEANER 05/23/2024 8:16 AM RUG CLEANER Cem Knapp MD LAB POCT ORDERABLES - DEVIC E Final Result [facility] [place] [address] * (ABNORMAL) Differential, auto (05/23/2024 2:30 AM RUG CLEANER) Pathologist [facility] Neutrophil abs 8.0(H) 1.5 - 6.5 K/cumm Imm gran abs 0.1 0.0 - 0.1 K/cumm [facility] Lymphocyte abs 2.6 0.8 - 3.3 K/cumm [facility] Monocyte abs 1.0(H) 0.2 - 0.8 K/cumm [facility] Eosinophil abs 0.3 0.0 - 0.5 K/cumm [facility] Basophil abs 0.0 0.0 - 0.1 K/cumm [facility] Neutrophil pct 66.5 % [facility] Comment: Interpretive Data Percent cell count reference ranges are not reported, since discordance with absolute values may lead to misinterpretation of CBC data. Current Interpretive Data was last revised on 2017. Imm gran pct 0.5 % [facility] Comment: Interpretive Data Percent cell count reference ranges are not reported, since discordance with absolute values may lead to misinterpretation of CBC data. Current Interpretive Data was last revised on 2017. Lymphocyte pct 21.9 % [facility] Comment: Interpretive Data Percent cell count reference ranges are not reported, since discordance with absolute values may lead to misinterpretation of CBC data. Current Interpretive Data was last revised on 2017. Monocyte pct 8.5 % [facility] Comment: Interpretive Data Percent cell count reference ranges are not reported, since discordance with absolute values may lead to misinterpretation of CBC data. Current Interpretive Data was last revised on 2017. Eosinophil pct 2.3 % [facility] Comment: Interpretive Data Percent cell count reference ranges are not reported, since discordance with absolute values may lead to misinterpretation of CBC data. Current Interpretive Data was last revised on 2017. Basophil pct 0.3 % [facility] Comment: Interpretive Data Percent cell count reference ranges are not reported, since discordance with absolute values may lead to misinterpretation of CBC data. Current Interpretive Data was last revised on 2017. Blood 05/23/2024 2:30 AM RUG CLEANER 05/23/2024 1:03 AM RUG CLEANER us Naila Guzman NP LAB BLOOD ORDERABLES Final Result [facility] [place] [address] * (ABNORMAL) CBC with auto differential (05/23/2024 2:30 AM RUG CLEANER) WBC 11.9(H) 3.8 - 9.9 K/cumm Hgb 12.8 11.9 - 15.5 g/dL [facility] Hct 39.6 35.6 - 45.5 % [facility] Plt 254 150 - 400 K/cumm [facility] MPV 9.7 9.1 - 12.3 fL [facility] RBC 4.43 3.90 - 5.20 M/cumm [facility] MCV 89.4 81.3 - 96.4 fL [facility] MCH 28.9 27.1 - 33.3 pg [facility] MCHC 32.3 32.3 - 35.7 g/dL [facility] RDW CV 13.7 11.1 - 14.9 % [facility] RDW SD 44.6 35.7 - 48.1 fL [facility] NRBC abs 0.00 0.00 - 0.01 K/cumm [facility] Blood 05/23/2024 2:30 AM RUG CLEANER 05/23/2024 1:03 AM RUG CLEANER us Naila Heather Thomas [employer] LAB BLOOD ORDERABLES Final Result Performing Organization Address [facility]/ZIP Co de Phone Number [facility] [place] [address] * eGFR (05/23/2024 12:42 AM RUG CLEANER) eGFR 84 >=60 mL/min/1. 73 m2 Comment: [...] reviewed 2021. Blood 05/23/2024 12:4 2 AM RUG CLEANER 05/23/2024 1:02 AM RUG CLEANER Naila Guzman NP LAB BLOOD ORDERABLES Final Result Performing Organization Address [facility]/ZIP Co de Phone Number [facility] [place] [address] * Type and screen (05/23/2024 12:42 AM RUG CLEANER) ABO Rh O Positive Dilcia, indirect Negative [facility] Blood 05/23/2024 12:4 2 AM RUG CLEANER 05/23/2024 12:52 AM RUG CLEANER Narrative [facility] - 05/23/2024 1:53 AM RUG CLEANER Has the patient had Daratumumab or Isatuximab in the past 6 months?->Unknown Naila Guzman NP LAB BLOOD BANK TEST ORDERA BLES Final Result Performing Organization Address [facility] [place] [address] * Uric acid (05/23/2024 12:42 AM RUG CLEANER) Uric acid 5.5 2.5 - 7.0 mg/dL Blood 05/23/2024 12:4 2 AM RUG CLEANER 05/23/2024 1:02 AM RUG CLEANER Narrative [facility] - 05/23/2024 1:34 AM RUG CLEANER Monday and only. Morning draw. . Naila Guzman NP LAB BLOOD ORDERABLES Final Result Performing Organization Address [facility] [place] [address] * Phosphorus (05/23/2024 12:42 AM RUG CLEANER) Pathologist [facility] Phosphorus, pl 4.4 2.3 - 4.5 mg/dL Blood 05/23/2024 12:4 2 AM RUG CLEANER 05/23/2024 1:02 AM RUG CLEANER Naila Guzman NP LAB BLOOD ORDERABLES Final Result Performing Organization Address [facility] [place] [address] * Magnesium (05/23/2024 12:42 AM RUG CLEANER) Magnesium 1.9 1.4 - 2.5 mg/dL Blood 05/23/2024 12:4 2 AM RUG CLEANER 05/23/2024 1:02 AM RUG CLEANER Naila Guzman NP LAB BLOOD ORDERABLES Final Result Performing Organization Address City/[facility] Co de Phone Number [facility] [place] [address] * Lactate dehydrogenase (LD) (05/23/2024 12:42 AM RUG CLEANER) [facility] Lactate dehydrogenase (LDH) 247 100 - 250 Units/L Blood 05/23/2024 12:4 2 AM RUG CLEANER 05/23/2024 1:02 AM RUG CLEANER Narrative [facility] - 05/23/2024 1:34 AM RUG CLEANER Monday and only. Morning draw. Naila Guzman NP LAB BLOOD ORDERABLES Final Result Performing Organization Address [facility] de Phone Number [facility] [place] [address] * Comprehensive metabolic panel (05/23/2024 12:42 AM RUG CLEANER) [facility] Sodium 136 135 - 145 mmol/L Potassium, pl 4.3 3.3 - 4.9 mmol/L [facility] Chloride 101 97 - 110 mmol/L [facility] CO2 29 22 - 32 mmol/L [facility] Anion gap 6 2 - 15 mmol/L [facility] BUN 18 6 - 25 mg/dL [facility] Creatinine 0.77 0.60 - 1.10 mg/dL [facility] Glucose 194 70 - 199 mg/dL [facility] Comment: Interpretive Data Fasting glucose >/= 126 [...] 2022. Calcium 9.5 8.5 - 10.3 mg/dL [facility] Bilirubin, total 0.5 0.1 - 1.2 mg/dL [facility] Protein, pl 7.4 6.5 - 8.5 g/dL [facility] Albumin 3.5 3.5 - 5.0 g/dL [facility] Alk phos 71 40 - 130 Units/L [facility] ALT 19 7 - 45 Units/L [facility] AST 22 10 - 45 Units/L [facility] Blood 05/23/2024 12:4 2 AM RUG CLEANER 05/23/2024 1:02 AM RUG CLEANER us Naila Guzman NP LAB BLOOD ORDERABLES Final Result Performing Organization Address City/[facility]/ZIP Co de Phone Number [facility] [place] [address] * (ABNORMAL) POCT glucose (05/22/2024 8:56 PM RUG CLEANER) Glucose, POC 210(H) 70 - 199 mg/dL Blood 05/22/2024 8:56 PM RUG CLEANER 05/22/2024 8:56 PM RUG CLEANER us Cem Knapp MD LAB POCT ORDERABLES - DEVIC E Final Result Performing Organization Address [facility] Co de Phone Number [facility] [place] [address] * POCT glucose (05/22/2024 6:09 PM RUG CLEANER) Glucose, POC 142 70 - 199 mg/dL Blood 05/22/2024 6:09 PM RUG CLEANER 05/22/2024 6:09 PM RUG CLEANER us Leo Henry MD LAB POCT ORDERABLES - NILESH CE Final Result Performing Organization Address City/[facility]/ZIP Co de Phone Number [facility] [place] [address] * POCT glucose (05/22/2024 4:26 PM RUG CLEANER) Glucose, POC 133 70 - 199 mg/dL Blood 05/22/2024 4:26 PM RUG CLEANER 05/22/2024 4:26 PM RUG CLEANER Leo Henry MD LAB POCT ORDERABLES - NILESH CE Final Result Performing Organization Address City/State/ZIP Co wi Phone Number [facility] [place] [address] * CT Abdomen Pelvis W Contrast (05/22/2024 2:32 PM RUG CLEANER) Anatomical Region Laterality Modality Body N/A Computed Tomogra phy 05/22/2024 4:35 PM RUG CLEANER Impressions 05/22/2024 5:16 PM RUG CLEANER No acute findings within the abdomen or pelvis. Dictated by: Yesi [place] M.D. The radiology attending physician has personally reviewed this study, and had reviewed and/or edited this written report and agrees with it. Electronically signed by: Kelli Palmer M.D. Narrative 05/22/2024 5:16 PM RUG CLEANER EXAMINATION: Computed tomography of the abdomen and [...] sult * POCT glucose (05/22/2024 12:58 PM RUG CLEANER) Glucose, POC 177 70 - 199 mg/dL Blood 05/22/2024 12:5 8 PM RUG CLEANER 05/22/2024 12:58 PM RUG CLEANER Leo Henry MD LAB POCT ORDERABLES - NILESH CE Final Result Performing Organization Address [facility] Co de Phone Number [facility] [place] [employer] [place] [address] * (ABNORMAL) POCT glucose (05/22/2024 9:29 AM RUG CLEANER) Glucose, POC 291(H) 70 - 199 mg/dL Blood 05/22/2024 9:29 AM RUG CLEANER 05/22/2024 9:29 AM RUG CLEANER Leo Henry MD LAB POCT ORDERABLES - NILESH CE Final Result Performing Organization Address [facility] Co de Phone Number [facility] [place] [address] * POCT glucose (05/22/2024 6:54 AM RUG CLEANER) Glucose, POC 142 70 - 199 mg/dL Blood 05/22/2024 6:54 AM RUG CLEANER 05/22/2024 6:54 AM RUG CLEANER Jimmie Zavala MD LAB POCT ORDERABLES - DEVICE Fin al Result Performing Organization Address [facility] Co de Phone Number [facility] [place] [address] * CT Chest PE (CTA) W Contrast (05/22/2024 1:31 AM RUG CLEANER) Anatomical Region Laterality Modality Body N/A Computed Tomogra phy 05/22/2024 2:38 AM RUG CLEANER Impressions 05/22/2024 9:12 AM RUG CLEANER No pulmonary embolism. Dictated by: Miguel Milligan MD The radiology attending physician has personally reviewed this study, and had reviewed and/or edited this written report and agrees with it. Electronically signed by: Jayson Rockwell M.D. Narrative 05/22/2024 9:12 AM RUG CLEANER EXAMINATION: CT CHEST PE (CTA) W CONTRAST [...] Result * D-dimer, quantitative (05/22/2024 12:24 AM RUG CLEANER) D-Dimer 414 <=499 ng/mL FEU Comment: Interpretive [...] on 2019. Blood 05/22/2024 12:2 4 AM RUG CLEANER 05/22/2024 12:42 AM RUG CLEANER Angeline Soler MD LAB BLOOD ORDERABLES F inal Result Performing Organization Address City/[facility] Co de Phone Number [facility] [place] [address] * Troponin I high-sensitivity 2-hour (05/21/2024 11:09 PM RUG CLEANER) Trop I hs 5 <=17 ng/L Comment: Interpretive Data For further hscTnI resources including the diagnostic algorithm and an aid in interpretation, copy and paste this link: https://bjhlab.testcatalog.org/show/hsTrop-1 Current Interpretive Data last revised 2019. Trop I hs delta See Comment ng/L [facility] Comment:Inappropriate collec tion time to report a delta. Trop I hs pct delta See Comment % [facility] Comment:Inappropriate collec tion time to report a delta. Trop I hs interp See Comment [facility] Comment:Inappropriate collec tion time to report a delta. Blood 05/21/2024 11:0 9 PM RUG CLEANER 05/21/2024 11:26 PM RUG CLEANER Cira Castro MD LAB BLOOD ORDERABL ES Final Result Performing Organization Address [facility] Co de Phone Number [facility] [place] [address] * (ABNORMAL) Urinalysis reflex to microscopic and culture Urine (05/21/2024 11:09 PM RUG CLEANER) Color, ur Yellow Yellow Clarity, ur Clear Clear [facility] Specific gravity, ur 1.025 1.003 - 1.030 [facility] pH, urine 6.0 [facility] Comment: Interpretive Data U rine pH is affected by diet, medications, systemic acid-base disturbances, and renal tubular function. pH may affect urinary stone formation. For example, urine pH below 6.0 may help reduce the tendency for calcium phosphate stones and pH greater than 6.0 may reduce the tendency for uric acid stone formation. Source: [facility] Current Interpretive Data was last revised on 2017 Protein, ur ql 1+(A) Negative [facility] Glucose, ur ql Negative Negative [facility] Ketones, ur Negative Negative [facility] Bilirubin, ur Negative Negative [facility] Blood, ur Trace(A) Negative [facility] Urobilinogen, ur <2.0 <2.0 mg/dL [facility] Nitrite, ur Positive(A) Negative [facility] Leukocyte esterase, ur 1+(A) Negative [facility] UA reflex comment Reflex to microscopic UA will be performed. [facility] Urine 05/21/2024 11:0 9 PM RUG CLEANER 05/21/2024 11:22 PM RUG CLEANER Angeline Soler MD LAB MICROBIOLOGY - GEN ERAL ORDERABLES Final Result [facility] [place] [address] * Respiratory pathogen panel Nasopharyngeal (05/21/2024 11:09 PM RUG CLEANER) Pathologist [facility] Influenza A RNA Not Detected Not Detected Influenza B RNA Not Detected Not Detected [facility] RSV RNA Not Detected Not Detected [facility] COVID-19 RNA Not Detected Not Detected [facility] Coronavirus 229E RNA Not Detected Not Detected [facility] Coronavirus HKU1 RNA Not Detected Not Detected [facility] Coronavirus NL63 RNA Not Detected Not Detected [facility] Coronavirus OC43 RNA Not Detected Not Detected [facility] Adenovirus DNA Not Detected Not Detected [facility] Metapneumovirus RNA Not Detected Not Detected [facility] Rhinovirus/Enterov irus RNA Not Detected Not Detected [facility] Parainfluenza 1 RNA Not Detected Not Detected [facility] Parainfluenza 2 RNA Not Detected Not Detected [facility] Parainfluenza 3 RNA Not Detected Not Detected [facility] Parainfluenza 4 RNA Not Detected Not Detected [facility] B. pertussis DNA Not Detected Not Detected [facility] B. parapertussis DNA Not Detected Not Detected [facility] C. pneumoniae DNA Not Detected Not Detected [facility] M. pneumoniae DNA Not Detected Not Detected [facility] Nasopharyngeal 05/21/2024 11 :09 PM RUG CLEANER 05/22/2024 4:48 AM RUG CLEANER Narrative [facility] - 05/22/2024 5:55 AM RUG CLEANER Is the Patient experiencing symptoms consistent with COVID?->No Surveillance testing for transplant patient?->No Interpretive Data The Vtrim FilmArray Respiratory Panel (RP2.1) assay is a [...] assay has FDA clearance for testing of [employer] swabs. The performance of additional specimen types has been assessed by the performing laboratory. The performance characteristics of this assay have been determined by [facility]. Current interpretive data was last revised on 22. Angeline Soler MD LAB MICROBIOLOGY - GEN ERAL ORDERABLES Final Result Performing Organization Address [facility] Co de Phone Number [facility] [place] [address] * (ABNORMAL) Urinalysis, microscopic only (05/21/2024 11:09 PM RUG CLEANER) WBC, ur 11-20(A) 0 - 5 /HPF RBC, ur 3-5(A) 0 - 2 /HPF [facility] Epithelial cells, squamous, ur 1-5 0 - 5 /HPF [facility] Bacteria, ur 3+(A) [facility] Yeast, ur Trace(A) [facility] Mucous, ur Present(A) [facility] Culture Reflex Comment Reflex to urine culture will be performed. [facility] Urine 05/21/2024 11:0 9 PM RUG CLEANER 05/21/2024 11:21 PM RUG CLEANER Angeline Soler MD LAB URINE ORDERABLES F inal Result Performing Organization Address [facility] Co de Phone Number [facility] [place] [address] * (ABNORMAL) Urine culture Urine (05/21/2024 11:09 PM RUG CLEANER) Report Amended Report - Complete: Greater than or equal to 100,000 colonies/mL of Escherichia coli Plus growth of clinically insignificant bacterial yesenia. (.) Organism ESCHERICHIA COLI [facility] Organism PLUS GROWTH OF CLINICALLY INSIGNIFICANT YESENIA. [facility] Urine 05/21/2024 11:0 9 PM RUG CLEANER 05/22/2024 2:40 AM RUG CLEANER Narrative [facility] - 05/25/2024 10:36 AM RUG CLEANER Urine culture reflexed based upon urinalysis results. Testing performed by [facility] Microbiology Laboratory ([phone]) Organism Antibiotic Method Susceptibility Escherichia coli Ampicillin [...] Edited Result - Final Performing Organization Address City/[facility]/ZIP Co de Phone Number [facility] [place] [address] * POCT glucose (05/21/2024 8:55 PM RUG CLEANER) Glucose, POC 139 70 - 199 mg/dL Blood 05/21/2024 8:55 PM RUG CLEANER 05/21/2024 8:55 PM RUG CLEANER us Notinfile Unknown LAB POCT ORDERABLES - DEVICE F inal Result Performing Organization Address [facility]/[place] [address] * Troponin I high-sensitivity 4-hour (05/21/2024 7:26 PM RUG CLEANER) [facility] Trop I hs 4 <=17 ng/L Comment: Interpretive Data For further hscTnI resources including the diagnostic algorithm and an aid in interpretation, copy and paste this link: https://[email or web address]/show/hsTrop-1 Current Interpretive Data last revised 2019. Trop I hs delta -1 ng/L [facility] Trop I hs interp Insignificant [facility] Blood 05/21/2024 7:26 PM RUG CLEANER 05/21/2024 7:37 PM RUG CLEANER us Cira Castro MD LAB BLOOD ORDERABL ES Final Result Performing Organization Address [facility] Co de Phone Number [facility] [place] [address] * Troponin I high-sensitivity series (baseline, 2hr, 4hr, 6hr) (05/21/2024 4:20 PM RUG CLEANER) [facility] Trop I hs 5 <=17 ng/L Comment: Interpretive Data For further hscTnI resources including the diagnostic algorithm and an aid in interpretation, copy and paste this link: https://[email or web address]/show/hsTrop-1 Current Interpretive Data last revised 2019. Blood 05/21/2024 4:20 PM RUG CLEANER 05/21/2024 4:50 PM RUG CLEANER us Jimmie Zavala MD LAB BLOOD ORDERABLES Final Resul t Performing Organization Address City/[facility]/ZIP Co de Phone Number [facility] [place] [address] * eGFR (05/21/2024 4:20 PM RUG CLEANER) [facility] eGFR >90 >=60 mL/min/1. 73 m2 [...] last reviewed 2021. Blood 05/21/2024 4:20 PM RUG CLEANER 05/21/2024 4:50 PM RUG CLEANER us Jimmie Zavala MD LAB BLOOD ORDERABLES Final Resul t [facility] Department of Laboratories [place], [place] [id number] * (ABNORMAL) Differential, auto (05/21/2024 4:20 PM RUG CLEANER) Pathologist [facility] Neutrophil abs 8.0(H) 1.5 - 6.5 K/cumm Imm gran abs 0.0 0.0 - 0.1 K/cumm [facility] Lymphocyte abs 2.4 0.8 - 3.3 K/cumm [facility] Monocyte abs 0.8 0.2 - 0.8 K/cumm [facility] Eosinophil abs 0.2 0.0 - 0.5 K/cumm [facility] Basophil abs 0.0 0.0 - 0.1 K/cumm [facility] Neutrophil pct 69.4 % [facility] Comment: Interpretive Data Percent cell count reference ranges are not reported, since discordance with absolute values may lead to misinterpretation of CBC data. Current Interpretive Data was last revised on 2017. Imm gran pct 0.4 % [facility] Comment: Interpretive Data Percent cell count reference ranges are not reported, since discordance with absolute values may lead to misinterpretation of CBC data. Current Interpretive Data was last revised on 2017. Lymphocyte pct 21.4 % [facility] Comment: Interpretive Data Percent cell count reference ranges are not reported, since discordance with absolute values may lead to misinterpretation of CBC data. Current Interpretive Data was last revised on 2017. Monocyte pct 6.7 % [facility] Comment: Interpretive Data Percent cell count reference ranges are not reported, since discordance with absolute values may lead to misinterpretation of CBC data. Current Interpretive Data was last revised on 2017. Eosinophil pct 1.8 % [facility] Comment: Interpretive Data Percent cell count reference ranges are not reported, since discordance with absolute values may lead to misinterpretation of CBC data. Current Interpretive Data was last revised on 2017. Basophil pct 0.3 % [facility] Comment: Interpretive Data Percent cell count reference ranges are not reported, since discordance with absolute values may lead to misinterpretation of CBC data. Current Interpretive Data was last revised on 2017. Blood 05/21/2024 4:20 PM RUG CLEANER 05/21/2024 4:50 PM RUG CLEANER us Jimmie Zavala MD LAB BLOOD ORDERABLES Final Resul t [facility] [place] [address] * (ABNORMAL) CBC with auto differential (05/21/2024 4:20 PM RUG CLEANER) WBC 11.4(H) 3.8 - 9.9 K/cumm Hgb 14.0 11.9 - 15.5 g/dL [facility] Hct 43.6 35.6 - 45.5 % [facility] Plt 286 150 - 400 K/cumm [facility] MPV 9.9 9.1 - 12.3 fL [facility] RBC 4.83 3.90 - 5.20 M/cumm [facility] MCV 90.3 81.3 - 96.4 fL [facility] MCH 29.0 27.1 - 33.3 pg [facility] MCHC 32.1(L) 32.3 - 35.7 g/dL [facility] RDW CV 13.6 11.1 - 14.9 % [facility] RDW SD 45.6 35.7 - 48.1 fL [facility] NRBC abs 0.00 0.00 - 0.01 K/cumm [facility] Blood Venous blood specimen / Unknown 05/21/2024 4:20 PM RUG CLEANER 05/21/2024 4:50 PM RUG CLEANER us Jimmie Zavala MD LAB BLOOD ORDERABLES Final Resul t Performing Organization Address City/[facility] Co de Phone Number [facility] [place] [address] * (ABNORMAL) Hemoglobin A1c (05/21/2024 4:20 PM RUG CLEANER) Hgb A1C 8.7(H) 4.0 - 5.6 % Estimated Average Glucose 203 mg/dL [facility] Comment: The ADA recommends reporting an estimated Average Glucose (eAG) with all Hemoglobin A1c results using the equation derived from a study of 507 normal and diabetic adults. Minority populations were underrepresented and children were not included. (Diabetes Care 2020; 43(S1): S66-S76). The eAG is not equivalent to a fasting glucose. Blood 05/21/2024 4:20 PM RUG CLEANER 05/21/2024 4:55 PM RUG CLEANER us Leo Henry MD LAB BLOOD ORDERABLES Final Result Performing Organization Address City/[facility]/ZIP Co de Phone Number [facility] [employer] [place], [place] [id number] * (ABNORMAL) Lipid panel (05/21/2024 4:20 PM RUG CLEANER) Cholesterol 205(H) 30 - 199 mg/dL Comment: [...] revised on 2017. Triglycerides 92 <=149 mg/dL [facility] Comment: Interpretive Data Ages < or = [...] revised on 2017. HDL 55 >=40 mg/dL [facility] Comment: Interpretive Data Ages < or = [...] on 2017. LDL, calculated 134(H) <=129 mg/dL [facility] Comment: Interpretive Data Ages < or = [...] revised on 2023. Non-HDL Cholesterol 150 mg/dL [facility] Comment: Interpretive Data Ages < or = [...] last revised on 2017. Chol/HDL ratio 4 [facility] Blood 05/21/2024 4:20 PM RUG CLEANER 05/21/2024 4:50 PM RUG CLEANER Narrative [facility] - 05/22/2024 4:17 PM RUG CLEANER Reflex us Leo Henry MD LAB BLOOD ORDERABLES Final Result [facility] [place] [address] * Comprehensive metabolic panel (05/21/2024 4:20 PM RUG CLEANER) Sodium 140 135 - 145 mmol/L Potassium, pl 4.3 3.3 - 4.9 mmol/L [facility] Chloride 100 97 - 110 mmol/L [facility] CO2 29 22 - 32 mmol/L [facility] Anion gap 11 2 - 15 mmol/L [facility] BUN 14 6 - 25 mg/dL [facility] Creatinine 0.63 0.60 - 1.10 mg/dL [facility] Glucose 119 70 - 199 mg/dL [facility] Comment: Interpretive Data Fasting glucose >/= 126 [...] 2022. Calcium 10.0 8.5 - 10.3 mg/dL [facility] Bilirubin, total 0.7 0.1 - 1.2 mg/dL [facility] Protein, pl 8.5 6.5 - 8.5 g/dL [facility] Albumin 3.9 3.5 - 5.0 g/dL [facility] Alk phos 83 40 - 130 Units/L [facility] ALT 23 7 - 45 Units/L [facility] AST 22 10 - 45 Units/L [facility] Blood 05/21/2024 4:20 PM RUG CLEANER 05/21/2024 4:50 PM RUG CLEANER us Jimmie Zavala MD LAB BLOOD ORDERABLES Final Resul t [facility] Department [place] [address] * XR Chest Pa Lateral 2 Views (05/21/2024 2:23 PM RUG CLEANER) Anatomical Region Laterality Modality Body, Chest N/A Computed Radiogr aphy 05/21/2024 2:28 PM RUG CLEANER Impressions 05/21/2024 2:36 PM RUG CLEANER The current study is compared with the [...] Jaime Neves M.D. Narrative 05/21/2024 2:36 PM RUG CLEANER EXAMINATION: 2 view chest radiograph Procedure Note [...] Result * POCT glucose (05/21/2024 1:39 PM RUG CLEANER) [facility] Glucose, POC 113 70 - 199 mg/dL Blood 05/21/2024 1:39 PM RUG CLEANER 05/21/2024 1:39 PM RUG CLEANER us Notinfile Unknown LAB POCT ORDERABLES - DEVICE F inal Result [facility] Department [place] [address] * ECG 12-LEAD (05/21/2024 1:36 PM RUG CLEANER) Narrative [facility] - 05/21/2024 1:36 PM RUG CLEANER Gil Mcgrath MD 05/21/2024 1:37 PM ECG [...] Zavala MD ECG ORDERABLES Final Result [facility] * US Axillary Breast Left (05/21/2024 12:13 PM RUG CLEANER) Anatomical Region Laterality Modality Upper Extremities Left Ultrasound 05/21/2024 12:2 3 PM RUG CLEANER Impressions 05/21/2024 12:23 PM RUG CLEANER 1. Limited ultrasound due to extensive edema [...] Alicia Wilcox M.D. Narrative 05/21/2024 12:23 PM RUG CLEANER EXAMINATION: LEFT AXILLARY ULTRASOUND HISTORY: Patient is [...] due to the extensive edema. Procedure Note lAicia Wilcox MD - 05/21/2024 EXAMINATION: LEFT AXILLARY [...] culture Urine, clean voided (05/14/2024 4:50 PM RUG CLEANER) Color, ur Straw Yellow Clarity, ur Clear Clear [facility] Specific gravity, ur 1.025 1.003 - 1.030 [facility] pH, urine 5.5 [facility] Comment: Interpretive Data U rine pH is affected by diet, medications, systemic acid-base disturbances, and renal tubular function. pH may affect urinary stone formation. For example, urine pH below 6.0 may help reduce the tendency for calcium phosphate stones and pH greater than 6.0 may reduce the tendency for uric acid stone formation. Source: [facility] [employer] Current Interpretive Data was last revised on 2017 Protein, ur ql Trace Negative [facility] Glucose, ur ql Negative Negative [facility] Ketones, ur Negative Negative [facility] Bilirubin, ur Negative Negative [facility] Blood, ur Trace(A) Negative [facility] Urobilinogen, ur <2.0 <2.0 mg/dL [facility] Nitrite, ur Negative Negative [facility] Leukocyte esterase, ur Negative Negative [facility] UA reflex comment Reflex to microscopic UA will be performed. [facility] Urine, clean voided 05/14/2024 4:50 PM RUG CLEANER 05/14/2024 7:18 PM RUG CLEANER Khris Arthur MD LAB MICROBIOLOGY - G ENERAL ORDERABLES Final Result [facility] [place] [address] * (ABNORMAL) Urinalysis, microscopic only (05/14/2024 4:50 PM RUG CLEANER) WBC, ur 0-5 0 - 5 /HPF RBC, ur 0-2 0 - 2 /HPF [facility] Epithelial cells, squamous, ur 1-5 0 - 5 /HPF [facility] Bacteria, ur Trace(A) [facility] Mucous, ur Present(A) [facility] Culture Reflex Comment Reflex conditions for urine culture (WBC >10) not met. [facility] Urine, clean voided 05/14/2024 4:50 PM RUG CLEANER 05/14/2024 7:18 PM RUG CLEANER us Khris Arthur MD LAB URINE ORDERABLES Final Result [facility] [place] [address] * XR Ribs Left 2 Views (05/14/2024 4:44 PM RUG CLEANER) Anatomical Region Laterality Modality Rib, Chest Left Digital Radiogra phy 05/14/2024 4:54 PM RUG CLEANER Impressions 05/14/2024 4:54 PM RUG CLEANER 1. No displaced left rib fracture. Electronically signed by: Santiago Gan D.O. Narrative 05/14/2024 4:54 PM RUG CLEANER EXAMINATION: XR RIBS LEFT 2 VIEWS HISTORY: [...] Bone mineral density was performed on a [employer] Discovery Densitometer. Based on machine cross-calibration and [...] by the International Society of Clinical Densitometry. [id number] Khris Arthur MD IMG DXA PROCEDURES F [...] agrees with it. ACC# Date Time Exam [id number] Aug 19, 2016 14:27:00 [facility] [id number] Diag Mamm, inc CAD, unilat L Technologist(s): Carla Harris; ; [id number] Aug 19, 2016 15:39:00 [facility] [id number] Breast US unilateral, ltd L ACC# Date Time Exam [id number] Aug 19, 2016 14:27:00 [facility] [id number] Diag Mamm, inc CAD, unilat L Technologist(s): Carla Harris; ; [id number] Aug 19, 2016 15:39:00 [facility] 21048 Breast US unilateral, ltd L EXAMINATION: LEFT [...] SARABIA M.D. on Aug 19 2016 4:20P [id number] Procedure Note Miscellaneous, Not In File / Provider, MD Tyler - 09/17/2016 ANTHONY SARABIA M.D. JUDY RINCON M.D. FINAL REPORT The radiology attending physician has personally reviewed this study, and has reviewed and/or edited this written report and agrees with it. ACC# Date Time Exam [id number] Aug 19, 2016 14:27:00 [facility] 08734 Diag Mamm, inc CAD, unilat L Technologist(s): Carla Harris; ; [id number] Aug 19, 2016 15:39:00 [facility] [id number] Breast US unilateral, ltd L ACC# Date Time Exam [id number] Aug 19, 2016 14:27:00 [facility] [id number] Diag Mamm, inc CAD, unilat L Technologist(s): Carla Harris; ; [id number] Aug 19, 2016 15:39:00 [facility] 64542 Breast US unilateral, ltd L EXAMINATION: LEFT [...] SARABIA M.D. on Aug 19 2016 4:20P [id number] us Not In File Miscellaneous IMG MAMMO PROCEDURES F inal Result from Last 3 Months or Most Recently Relevant to Health Maintenance Insurance [facility] UHC MEDICARE ADVANTAGE [facility] MEDICARE ADVANTAGE [facility] MEDICARE ADVANTAGE Advance Directives For more information, please contact: [phone] Documents on File Type Date Recorded Patient Platen Press Operator Expl anation ADVANCE DIRECTIVE 12/23/2021 2:49 PM Power of Canvassing Manager-Medical ADVANCE DIRECTIVE 12/23/2021 2:49 PM Living [...] First Alternate Health Care Agent Care Teams Consumer Analyst Relationship Specialty Start Date End Date Justen Gale MD [address] [address] PCP - General 10/09/17 Liu Jerez MD Consulting Physician Gastroenterology 07/28/17 [place] [address] [facility] [address] [place] [address] Consulting Physician Pulmonary Disease 08/03/17 Khris Arthur MD [address] [facility] [address] [place] [address] Medical Oncologist/Transmitter Chief Medical Oncology 10/23/17 [place] [address] [facility] [address] [place] [address] Surgeon Orthopedic Surgery 10/23/17 [place] [address] [facility] [address] [place] [address] Consulting Physician Pain Management 10/23/17 [place] [address] [facility] [address] [place] [address] Referring Physician General Surgery 01/26/18 [place] [address] [facility] [address] [place] [address] Consulting Physician Neurology 01/26/18
--- OUTSIDE RECORDS SUMMARY | 2024-08-05 17:01 | XMS_ITS | Encounter Summary ---
Author Organization [facility] Address [address] [place] [address] Phone Care Team Providers Care Network And Threat Support Specialist Name Role Phone Justen Gale MD Primary Care Provider David Roberts APRN, EXERCISER Unavailable [phone] Annel Rod MD Unavailable Reason for Visit * Reason Comments Medication Refill Encounter Details Date Type Department Care Team (Late st Contact Info) Description 03/13/2021 Refill [facility] [address] [place] [address] Justen Gale MD [address] [address] Medication Refill Social History Tobacco Use Types [...] COVID-19? No / Unsure 03/02/2021 5:05 PM PUBLIC HEALTH CLINICAL NURSE SPECIALIST documented as of this encounter Plan of Treatment Upcoming Encounters Date Type Department Care Team (Late st Contact Info) Description 08/12/2024 11:30 AM CDT Office Visit [facility] Family Medicine [facility] [address] [place] [address] Angelito Alegria, POULTRY FARM LABORER, EXERCISER [address]2 [facility] [address] [place] [address] 09/18/2024 2:45 PM CDT Office Visit [facility] Endocrinology [facility] [address] [place] [address] Annel Rod MD #2 [facility] [address] [place] [address] documented as of this encounter Visit Diagnoses Not on filedocumented in this encounter Additional Health Concerns Infection Onset Date Last Indicated Resolved Time COVID - 19 08/01/2024 08/01/2024 08/01/2024 3:20 PM CDT Assessment Noted Time PHQ-9 Depression Total Score: 0 07/21/19 3:00 PM CDT documented as of this encounter Care Teams Network And Threat Support Specialist Relationship Specialty Start Date End Date Justen Gale MD [address]2 [facility] [address] [place] [address] PCP - General Family Medicine 10/17/17 David Roberts APRN, EXERCISER [address] [place] [address] Nurse Practitioner Advanced Practice Nurse 01/31/22 Annel Rod MD #[address] [address] Consulting Physician Endocrinology 07/01/22 documented as of this encounter
--- OUTSIDE RECORDS SUMMARY | 2024-08-05 17:01 | XMS_ITS | Encounter Summary ---
Author Organization [facility] Address [address] [place] [address] Phone Care Team Providers Care Batch Roller Operator Name Role Phone Liu Jerez MD Unavailable Albert Corbin MD Unavailable Justen Gale MD Primary Care Provider Khris Arthur MD Unavailable [phone] Ko Melendez MD Unavailable [phone] John Paul Moyer MD Unavailable [phone] Annel Rod MD Unavailable Anali MARSHALL MD, Carlos M. Unavailable [phone] Encounter Details Date Type Department Care Team [...] on file Legal Sex Female 12:24 AM ORGANIC SECTION TECHNICAL LEAD Gender Identity Not on file Sexual [...] COVID: Recovered 02/10/2022 02/10/2022 06/10/2022 3:05 AM ORGANIC SECTION TECHNICAL LEAD Exposure, COVID-19 Comment:Added automatically based on COVID19 lab answers indicating exposure risk 02/11/2022 02/11/2022 02/15/2022 9:06 AM C DT COVID: Suspected 05/14/2022 05/14/2022 05/14/2022 10:41 AM ORGANIC SECTION TECHNICAL LEAD COVID: Suspected 06/07/2022 06/07/2022 06/07/2022 12:28 PM ORGANIC SECTION TECHNICAL LEAD COVID: Suspected 06/21/2022 06/21/2022 06/21/2022 2:12 AM ORGANIC SECTION TECHNICAL LEAD COVID: Suspected 10/05/2022 10/05/2022 10/05/2022 7:40 PM CDT COVID: Suspected 01/04/2024 01/04/2024 01/04/2024 10:30 PM CDT COVID: Suspected 02/14/2024 02/14/2024 02/15/2024 12:36 AM CDT COVID: Suspected 07/01/2024 07/01/2024 07/01/2024 2:53 PM CDT COVID: Suspected 07/01/2024 07/01/2024 07/02/2024 3:05 AM CDT documented as of this encounter Care Teams Batch Roller Operator Relationship Specialty Start Date End Date Justen Gale MD 2 [facility] [address] [place] [address] PCP - General 10/09/17 Liu Jerez MD Consulting Physician Gastroenterology 07/28/[address] [place] [address] [facility] [address] [place] [address] Consulting Physician Pulmonary Disease 08/03/17 [place] [address] [place] [address] [address] [place] [address] Medical Oncologist/Hris Analyst Medical Oncology 10/23/17 [place] [address] [address] Surgeon Orthopedic Surgery 10/23/17 [place] [address] [facility] [address] [place] [address] Consulting Physician Pain Management 10/23/17 [place] [address] [address] Referring Physician General Surgery 01/26/18 [place] [address] [facility] [address] [place] [address] Consulting Physician Neurology 01/26/18 documented as of this encounter
--- OUTSIDE RECORDS SUMMARY | 2024-08-05 17:01 | XMS_ITS | Encounter Summary ---
Author Organization [facility] Address [address] [place] [address] Phone Care Team Providers Care Restaurant Hourly Manager Name Role Phone Justen Gale MD Primary Care Provider [phone] David Roberts APRN, CARPENTER FORM Unavailable [phone] Annel Rod MD Unavailable Reason for Visit * Reason Comments Medication Refill Encounter Details Date Type Department Care Team (Late st Contact Info) Description 07/14/2022 Refill [facility] - Family Medicine [facility] [address] [place] [phone] Justen Gale MD #[address] [address] Medication Refill Social History Tobacco Use Types [...] Description 08/12/2024 11:30 AM CDT Office Visit [facility] - Family Medicine - [place] [address] [place] [address] Angelito Alegria APRN, NETTA #2 [facility] [address] [place] [address] 09/18/2024 2:45 PM CDT Office Visit [facility] - Endocrinology - [place] [address] [place] [address] Annel Rod MD #2 [facility] [address] [place] [address] documented as of this encounter Visit Diagnoses Not on filedocumented in this encounter Additional Health Concerns Infection Onset Date Last Indicated Resolved Time COVID - 19 08/01/2024 08/01/2024 08/01/2024 3:20 PM CDT Assessment Noted Time PHQ-9 Depression Total Score: 0 07/21/19 21 3:00 PM CDT documented as of this encounter Care Teams Restaurant Hourly Manager Relationship Specialty Start Date End Date Justen Gale MD #2 [facility] [address] [place] [address] PCP - General Family Medicine 10/17/17 David Roberts, TARIFF COMPILING CLERK, CARPENTER FORM [address] [place] [address] Nurse Practitioner Advanced Practice Nurse 01/31/22 Annel Rod MD #2 [facility] [address] [place] [address] Consulting Physician Endocrinology 07/01/22 documented as of this encounter
--- OUTSIDE RECORDS SUMMARY | 2024-08-05 17:01 | XMS_ITS | Encounter Summary ---
Author Organization [facility] Address [address] [place] [address] Phone Care Team Providers Care Instructional Technology Facilitator Name Role Phone Lavonne Hathaway MD Primary Care Provider + [phone] Liu Jerez MD Unavailable [phone] Albert Corbin MD Unavailable [phone] Justen Gale MD Primary Care Provider + [phone] Lavonne Hathaway MD Primary Care Provider + [phone] Justen Gale MD Primary Care Provider + [phone] Khris Arthur MD Unavailable + [phone] Ko Melendez MD Unavailable [phone] John Paul Moyer MD Unavailable Annel Rod MD Unavailable Anali MARSHALL MD, Carlos M. Unavailable +[phone] Encounter Details Date Type Department Care Team ([facility] Contact Info) Description 05/15/2017 Orders Only [facility] Scanning, Provider Social History Tobacco Use Types Packs/Day Years Used Date Smoking Tobacco: Former Alcohol Use Standard Drinks/Week Comments No 0 (1 standard drink = 0.6 oz pur e alcohol) Comments Unknown Sex and Gender Information Value Date Recorded Sex Assigned at Not on file Legal Sex Female 12:24 AM MENTAL HEALTH COUNSELOR Gender Identity Not on file Sexual [...] COVID: Recovered 02/10/2022 02/10/2022 06/10/2022 3:05 AM MENTAL HEALTH COUNSELOR Exposure, COVID-19 Comment:Added automatically based on COVID19 lab answers indicating exposure risk 02/11/2022 02/11/2022 02/15/2022 9:06 AM C DT COVID: Suspected 05/14/2022 05/14/2022 05/14/2022 10:41 AM MENTAL HEALTH COUNSELOR COVID: Suspected 06/07/2022 06/07/2022 06/07/2022 12:28 PM MENTAL HEALTH COUNSELOR COVID: Suspected 06/21/2022 06/21/2022 06/21/2022 2:12 AM MENTAL HEALTH COUNSELOR COVID: Suspected 10/05/2022 10/05/2022 10/05/2022 7:40 PM CDT COVID: Suspected 01/04/2024 01/04/2024 01/04/2024 10:30 PM CDT COVID: Suspected 02/14/2024 02/14/2024 02/15/2024 12:36 AM CDT COVID: Suspected 07/01/2024 07/01/2024 07/01/2024 2:53 PM CDT COVID: Suspected 07/01/2024 07/01/2024 07/02/2024 3:05 AM CDT documented as of this encounter Care Teams Instructional Technology Facilitator Relationship Specialty Start Date End Date Lavonne Hathaway MD [address] [place] [address] [place] [address] PCP - General 08/16/16 08/17/17 Justen Gale MD [address] [facility] [address] [address] PCP - General 08/18/17 08/22/17 Lavonne Hathaway MD [address] [place] [address] [place] [address] PCP - General Family Medicine 08/23/17 10/08/17 Justen Gale MD 2 [facility] [place] [address] [address] PCP - General 10/09/17 Liu Jerez MD [address] [place] [address] [place] [address] Consulting Physician Gastroenterology 07/28/17 [place] [address] [facility] [address] [place] [address] Consulting Physician Pulmonary Disease 08/03/17 Khris Arthur MD [address] [facility] [address] [place] [address] Medical Oncologist/Contract Programmer Medical Oncology 10/23/17 [place] [address] [facility] [address] [place] [address] Surgeon Orthopedic Surgery 10/23/17 [place] [address] [facility] [address] [place] [address] Consulting Physician Pain Management 10/23/17 [place] [address] [facility] [address] [place] [address] Referring Physician General Surgery 01/26/18 [place] [address] [facility] [address] [place] [address] Consulting Physician Neurology 01/26/18 documented as of this encounter
--- OUTSIDE RECORDS SUMMARY | 2024-08-05 17:01 | XMS_ITS | Encounter Summary ---
Author Organization [facility] Address [address] [place] [address] Phone Care Team Providers Care Carcass Trimmer Name Role Phone Justen Gale MD Primary Care Provider [phone] David Roberts APRN, BLOCK SAWYER Unavailable [phone] Annel Rod MD Unavailable Reason for Visit * Reason Comments Medication Refill Encounter Details Date Type Department Care Team (Late st Contact Info) Description 02/07/2020 Refill [facility] [address] [facility] [place] [address] Justen Gale MD [address] [address] Medication Refill Social History Tobacco Use Types [...] Description 08/12/2024 11:30 AM CDT Office Visit [facility] - Family Medicine - [address] [place] [address] Angelito Alegria APRN, NETTA [address] [address] 09/18/2024 2:45 PM CDT Office Visit [facility] - Endocrinology - [address] [place] [address] Annel Rod MD [address] [address] documented as of this encounter Visit Diagnoses Not on filedocumented in this encounter Additional Health Concerns Infection Onset Date Last Indicated Resolved Time COVID - 19 08/01/2024 08/01/2024 08/01/2024 3:20 PM CDT Assessment Noted Time PHQ-9 Depression Total Score: 0 09/08/19 19 1:00 PM CDT documented as of this encounter Care Teams Carcass Trimmer Relationship Specialty Start Date End Date Justen Gale MD [address] [place] [address] PCP - General Family Medicine 10/17/17 David Roberts APRN, NETTA [address] [place] [address] Nurse Practitioner Advanced Practice Nurse 01/31/22 Annel Rod MD [address] [address] Consulting Physician Endocrinology 07/01/22 documented as of this encounter
--- OUTSIDE RECORDS SUMMARY | 2024-08-05 17:01 | XMS_ITS | Clinical Summary ---
Author Organization [facility] Address [address] [place] [address] Phone Care Team Providers Care Field Project Manager Name Role Phone Justen Gale MD Primary Care Provider [phone] David Roberts APRN, STYRENE DEHYDRATION REACTOR OPERATOR Unavailable [phone] Annel Rod MD Unavailable Allergies Active Allergy Reactions Criticality Noted Date Comments Amlodipine Itching 08/01/2024 Azithromycin Hives 08/03/2024 Ceftriaxone Anaphylaxis High 09/14/2017 Cephalosporins Anaphylaxis High 03/22/2017 Ciprofloxacin Rash 08/01/2024 Dermatological Products, Misc. Hives,Itching High 10/12/2021 SURGICAL TAPE Doxycycline Unknown 08/03/2024 Ketorolac Itching Low 07/05/2021 Latex Rash Medium 07/05/2021 Levofloxacin Rash,Other (see Comments) Medium 04/20/2017 Lisinopril Swelling 04/19/2021 Lower extremity edema Lorazepam Other (see Comments),Unknown High 03/18/2018 Aggrevates restless leg syndrome Aggrevates restless leg syndrome Nitrofurantoin Macrocrystal Itching 08/01/2024 Nitrofurantoin Itching Medium 10/12/2021 Medical Adhesive Remover Rash 09/16/2021 Meropenem Rash Medium 02/16/2022 Amlodipine Besylate Swelling 07/05/2022 Leg swelling Oxycodone Unknown 10/17/2017 Piperacillin Rash 08/01/2024 Pregabalin Other (see Comments) Low 10/29/2020 Metoclopramide [...] long-term current use of insulin ([facility]) Diagnosis: Diabetes Type 2 Blood testing frequency: [...] HCl (Narcan) 4 MG/0.1ML Liquid 2 Active diphenhydrAMIN E (BENADRYL) 25 MG [...] 100 UNITS 30 mL 1 3 Active Additional Information Patient taking differently: 28 Units Subcutaneous 3 TIMES DAILY BEFORE MEALS, ADMINSTER 28 UNITS UNDER THE SKIN BEFORE EACH MEAL, ISF OF 1:15 OF IF> 150MG/DL MAX DAILY DOSE OF 100 UNITS, Reported on 08/01/2024 Continuous Blood Gluc Sensor (FreeStyle Eileen 2 Sensor) [facility] APPLY 1 SENSOR AND WEAR FOR 14 DAYS TO CHECK BLOOD SUGAR 6 Each 1 4 Active albuterol 108 (90 Base) MCG/ACT Aerosol Solution take 2 Puffs by inhalation. 1 Active gabapentin (NEURONTIN) 300 MG Capsule Take 300 mg by mouth. 4 Active HYDROcodone-ac etaminophen (NORCO) 10-325 MG Tablet Take 1 Tablet by mouth. 4 Active Multiple Vitamins-Silo als (WOMENS MULTI PO) Take by mouth. [...] Continuous Glucose Sensor (FreeStyle Eileen 2 Sensor) [facility] 1 Each by Does not apply route every 14 days. Change sensor every 14 days. E11.42, insulin dependent 6 Each 1 5 Active azithromycin (ZITHROMAX) 250 MG Tablet Take 1 Tablet by mouth daily for 5 days. 2 tab(s) daily for 1 day, then 1 tab(s) daily for days 2-5. 6 Tablet 5 025 Active Continuous Glucose Sensor (FreeStyle Eileen 2 Sensor) [facility] 1 Each by Does not apply route every 14 days. 6 Each 1 5 Active predniSONE (DELTASONE) 10 MG Tablet Take 1 Tablet by mouth daily for 7 days. 7 Tablet 5 025 Active HumaLOG KwikPen 100 UNIT/ML Solution Pen-injector INJECT 28 UNITS UNDER SKIN BEFORE EACH MEAL.; ISF OF 1:15 OF IF>150MG/DL; MAX DAILY DOSE OF 100 UNITS 90 mL 5 Active insulin glargine (Lantus SoloStar) 100 UNIT/ML Solution Pen-injector 40 Units by Subcutaneous route every morning. 30 mL 5 Active HumaLOG KwikPen 100 UNIT/ML Solution Pen-injector INJECT 28 UNITS UNDER SKIN BEFORE EACH MEAL.; ISF OF 1:15 OF IF>150MG/DL; MAX DAILY DOSE OF 100 UNITS 90 mL 1 4 025 Discontin ued(Reord er) Continuous Glucose Sensor (FreeStyle Eileen 2 Sensor) [facility] APPLY 1 SENSOR AND WEAR FOR 14 DAYS TO CHECK BLOOD SUGAR 6 Each 1 4 025 Discontin ued(Reord er) insulin glargine (Lantus SoloStar) 100 UNIT/ML Solution Pen-injector 40 Units by Subcutaneous route nightly. 15 mL 4 025 Discontin ued(Reord er) doxycycline hyclate (VIBRAMYCIN) 100 MG Capsule Take 1 Capsule by mouth 2 times daily for 10 days. 20 Capsule 5 025 Discontin ued(Aller gic response) Active Problems Problem Noted Date Diagnosed Date [...] Morbid obesity with BMI of 50.0-59.9, adult 0504/2017 Chest pressure 08/01/2017 Diet-controlled diabetes mellitus 08/01/2017 History of pulmonary embolism 08/01/2017 Acute cystitis without hematuria 07/27/2017 Dyspnea 07/27/2017 Generalized weakness 07/27/2017 Nausea and vomiting 07/26/2017 Overview (11/09/2017): Overview: Added automatically from request for surgery [id number] Lymphedema of left upper extremity 08/09/2016 Pulmonary embolism 08/09/2016 Overview (11/09/2017): Last Assessment & Plan: On Rivaroxaban Arthralgia of ankle 01/26/2015 Cellulitis of breast 11/11/2014 Encounters Date Type Department Care Team Description 08/05/2024 MyChart RX Renewal [facility] - Endocrinology - [place] [address] [place] [phone] Annel Rod MD Medication Renewal Reviewed 08/05/2024 [facility] [address] [place] [phone] Justen Gale MD Muscle Pain; Follow-up 08/03/2024 3:36 AM CDT - 08/03/2024 7:05 AM CDT [facility] [address] [place] [address] Sergio Rivera MD Myalgia Discharge Disposition: Discharged to home or Selfcare 08/02/2024 Travel 08/02/2024 [facility] [address] [place] [phone] Justen Gale MD Hemoptysis 08/02/2024 Telephone [facility] [address] [place] [phone] Justen Gale MD Results 08/02/2024 Telephone [facility] [address] [place] [phone] Angelito Alegria APRN, STYRENE DEHYDRATION REACTOR OPERATOR Results 08/02/2024 MyChart RX Renewal [facility] Endocrinology [facility] [address] [place] [phone] Annel Rod MD Medication Renewal Reviewed 08/01/2024 2:13 PM CDT - 08/01/2024 4:16 PM CDT Emergency [facility] Emergency [address] [place] [address] Jack Leiva MD Dyspnea on exertion Discharge Disposition: Discharged to home or Selfcare 08/01/2024 1:15 PM CDT Office Visit [facility] [address] [place] [address] Angelito Alegria APRN, STYRENE DEHYDRATION REACTOR OPERATOR Body aches (Primary Dx) Discharge Disposition: Discharged to home or Selfcare 08/01/2024 Travel 08/01/2024 [facility] [address] [place] [phone] Justen Gale MD Pain 07/22/2024 Telephone [facility] [address] [place] [phone] Justen Gale MD Appointment 07/11/2024 Nurse Triage [facility] Call Center [address] [place] [phone] Justen Gale MD Toe Problem 06/14/2024 Nurse Triage [facility] [address] [place] [phone] Justen Gale MD Urinary Incontinence; Urinary Problem 05/28/2024 Nurse Triage [facility] [address] [place] [phone] Justen Gale MD Nausea; Fatigue 05/14/2024 Nurse Triage [facility] [address] [place] [phone] Justen Gale MD Arm Swelling; Arm Pain 05/13/2024 Results Follow-Up [facility] Medical Group [facility] [address] [place] [address] Justen Gale MD from Last 3 Months Immunizations Immunization Administration Dates Next Due Covid-19 Vaccine, Vector-nr, [id number], Pf, 0.5 Ml ([place]/[employer]) 06/29/2020 Influenza Vaccine greater than 3 yrs [...] Recorded Total Score - Questions 1-9 0 07/23 Education Answer Date Recorded What is the [...] AM CDT Sexual Orientation Not on file Last Filed Vital Signs Vital Sign Reading Time Taken Comments Blood Pressure 143/73 08/03/2024 7:00 AM CDT Pulse 71 08/03/2024 7:00 AM CDT Temperature 37.1 C (98.7 F) 08/02/2024 11:11 PM CDT Respiratory Rate 16 08/03/2024 7:00 AM CDT Oxygen Saturation 98% 08/03/2024 7:00 AM CDT Inhaled Oxygen Concentration - - Weight 123.8 kg (273 lb) 08/02/2024 11:11 PM CDT Height 154.9 cm (5' 1 ) 08/02/2024 11:11 PM CDT Body Mass Index 51.58 08/02/2024 11:11 PM CDT Plan of Treatment Upcoming Encounters Date Type Department Care Team (Late st Contact Info) Description 08/12/2024 11:30 AM CDT Office Visit [facility] Medical Group - Family Medicine [facility] [address] [place] [phone] Angelito Alegria, TANGIBLE PERSONAL PROPERTY APPRAISER, STYRENE DEHYDRATION REACTOR OPERATOR [address] [facility] [address] [place] [address] 09/18/2024 2:45 PM CDT Office Visit [facility] Medical [facility] - Endocrinology - [place] [address] [place] [phone] Annel Rod MD [address]2 [facility] [address] [place] [phone] Health Maintenance Due Date Last Done Comments Diabetes: Eye Exam 1956 Pneumococcal Immunization (50+ years) (1 of 2 - PCV) 1975 Zoster Immunization (1 of 2) 1975 Cologuard 2006 Respiratory Syncytial Virus (RSV) Immunization (Adult) (1 - Risk 60-74 years 1-dose series) 2016 Immunochemical Fecal Occult Blood 09/08/2019 09/07/2018, 08/31/2018 Diabetes: Foot Exam 08/12/2020 08/13/2019, 08/07/2019, 06/18/2019, Additional history exists SARS-COV-2 Immunization ( season) 2023 05/04/2021, 06/29/2020 DEXA Bone Density 08/02/2024 08/02/2022, 11/10/2020 Diabetes: Hemoglobin A1c 11/18/2024 025, 10/14/2023, 10/02/2023, Additional history exists Influenza Immunization (Season Ended) 2024 01/17/2023, 01/17/2023, 01/03/2022, Additional history exists Colonoscopy 01/08/2025 01/09/2020, 09/10/2018 Colorectal Cancer Screening 01/08/2025 Diabetes: Nephropathy Screening 08/02/2025 08/02/2024, 08/01/2024, 12/04/2023, Additional history exists Td Immunization Every 10 Years (Adults With [...] Priority Date/Time Associated Diagnosis Comments XR HIP 2 VIEWS UNILATERAL RIGHT STAT 08/03/2024 6:17 AM CDT XR CHEST 2 VIEWS STAT 08/03/2024 12:41 AM CDT CBC WITH AUTO DIFFERENTIAL STAT 08/02/2024 11:21 PM CDT CMP (COMPREHENSIVE METABOLIC PANEL) STAT 08/02/2024 11:21 PM CDT COMPLETE BLOOD COUNT (CBC) WITH DIFF STAT 08/02/2024 11:21 PM CDT GOLD TOP TUBE STAT 08/01/2024 2:48 PM CDT BLUE TOP TUBE STAT 08/01/2024 2:48 PM CDT CBC WITH AUTO DIFFERENTIAL STAT 08/01/2024 2:48 PM CDT EXTRA TUBES STAT 08/01/2024 2:48 PM CDT CREATINE KINASE (CK) TOTAL STAT 08/01/2024 2:48 PM CDT C-REACTIVE PROTEIN (CRP) QUANT STAT 08/01/2024 2:48 PM CDT ERYTHROCYTE SEDIMENTATION RATE (ESR) STAT 08/01/2024 2:48 PM CDT B-TYPE NATRIURETIC PEPTIDE (BNP) STAT 08/01/2024 2:48 PM CDT TROPONIN I, HIGH SENSITIVITY (HSTRP) STAT 08/01/2024 2:48 PM CDT MAGNESIUM (MG) STAT 08/01/2024 2:48 PM CDT CMP (COMPREHENSIVE METABOLIC PANEL) STAT 08/01/2024 2:48 PM CDT COMPLETE BLOOD COUNT (CBC) WITH DIFF STAT 08/01/2024 2:48 PM CDT EKG 12 LEAD STAT 08/01/2024 2:41 PM CDT XR CHEST SINGLE VIEW PORTABLE STAT 08/01/2024 2:40 PM CDT RSV,SARS-COV-2,INFLUEN ZA A&B BY PCR STAT 08/01/2024 2:28 PM CDT EKG SCAN 08/01/2024 12:00 AM CDT PAIN CONSULT 07/24/2024 12:[address] - CHEST 07/22/2024 12:00 AM CDT XR - CHEST 07/21/2024 12:00 AM CDT XR - LOWER EXTREMITY 07/10/2024 12:[address] - ABDOMEN/PELVIS 06/21/2024 12:00 AM WORKDAY SENIOR ASSOCIATE XR - LOWER EXTREMITY 06/20/2024 12:00 AM WORKDAY SENIOR ASSOCIATE PAIN CONSULT 05/20/2024 12:00 AM WORKDAY SENIOR ASSOCIATE XR - CHEST 05/15/2024 12:00 AM WORKDAY SENIOR ASSOCIATE URINALYSIS (UA) RANDOM 12:00 AM WORKDAY SENIOR ASSOCIATE XR - CHEST 05/14/2024 12:00 AM WORKDAY SENIOR ASSOCIATE EXTERNAL GASTROENTEROLOGY REFERRAL Less Than 1 week 05/07/2024 12:00 AM WORKDAY SENIOR ASSOCIATE Nausea and vomiting, unspecified vomiting type Pain of upper abdomen HEMOGLOBIN, A1C 10/02/2023 12:00 AM CDT HUMAN PAPILLOMA VIRUS (HPV) Routine 07/05/2022 2:24 PM CDT Encounter for gynecological examination with abnormal finding Encounter for screening for human papillomavirus (HPV) PATHOLOGY CYTOLOGY CAD OPERATOR Routine 2:24 PM CDT Encounter for gynecological examination with abnormal finding HM COLONOSCOPY Routine 01/09/2020 AMB REFERRAL TO PODIATRY Routine 08/13/2019 POCT STOOL, OCCULT BLOOD, DIAGNOSTIC Routine 09/07/2018 1:20 PM CDT Generalized abdominal pain from Last 3 Months or Most Recently Relevant to Health Maintenance Results * XR HIP 2 VIEWS UNILATERAL RIGHT (08/03/2024 6:17 AM CDT) Anatomical Region Laterality Modality LOWER EXTREMITY, hip Right Digital Rad iography 08/03/2024 6:21 AM CDT Impressions 08/03/2024 6:23 AM CDT IMPRESSION: Negative right hip. Narrative 08/03/2024 6:23 AM CDT EXAM DESCRIPTION: XR HIP 2 VIEWS UNILATERAL RIGHT REASON FOR STUDY: pain TECHNIQUE: 2 radiographic view(s) of the right hip . COMPARISON: None FINDINGS: BONES/JOINTS: There is no acute fracture, malalignment or osseous abnormality. The joint spaces are maintained. SOFT TISSUES: Within normal limits. THIS IS AN ELECTRONICALLY VERIFIED FINAL REPORT 08/03/2024 6:21 AM - Electronically signed by Sen Sy M.D. JANIYA: JANIYA Report ID: [id number] Reading Location: [id number] Procedure Note Dillon Sy MD - 08/03/2024 EXAM DESCRIPTION: XR HIP 2 VIEWS UNILATERAL RIGHT REASON FOR STUDY: pain TECHNIQUE: 2 radiographic view(s) of the right hip . COMPARISON: None FINDINGS: BONES/JOINTS: There is no acute fracture, malalignment or osseous abnormality. The joint spaces are maintained. SOFT TISSUES: Within normal limits. THIS IS AN ELECTRONICALLY VERIFIED FINAL REPORT 08/03/2024 6:21 AM - Electronically signed by Sen Sy M.D. JANIYA: JANIYA Report ID: [id number] Reading Location: [id number] IMPRESSION: Negative right hip. Sergio Rivera MD IMG DIAGNOSTIC ORDERABLES Final Result * XR CHEST 2 VIEWS (08/03/2024 12:41 AM CDT) Anatomical Region Laterality Modality Chest N/A Digital Radiogra phy 08/03/2024 12:4 8 AM CDT Impressions 08/03/2024 12:51 AM CDT IMPRESSION: Mild bilateral infiltrates are suspected superimposed on chronic lung changes. Narrative 08/03/2024 12:51 AM CDT EXAM DESCRIPTION: XR CHEST 2 VIEWS REASON FOR STUDY: coughing up blood TECHNIQUE: 2 radiographic view(s) of the chest. COMPARISON: 08/01/2024 FINDINGS: LUNGS: Mild bilateral infiltrates are suspected superimposed on chronic lung changes. No consolidation or effusion is seen. HEART/MEDIASTINUM: Cardiac silhouette normal in size. Mediastinal and hilar contours appear normal. LINES/TUBES: None. BONES: No acute osseous abnormality. THIS IS AN ELECTRONICALLY VERIFIED FINAL REPORT 08/03/2024 12:48 AM - Electronically signed by Patrick STOCKTON: KATH Report ID: [id number] Reading Location: [id number] Procedure Note Patrick Zhou MD - 08/03/2024 EXAM DESCRIPTION: XR CHEST 2 VIEWS REASON FOR STUDY: coughing up blood TECHNIQUE: 2 radiographic view(s) of the chest. COMPARISON: 08/01/2024 FINDINGS: LUNGS: Mild bilateral infiltrates are suspected superimposed on chronic lung changes. No consolidation or effusion is seen. HEART/MEDIASTINUM: Cardiac silhouette normal in size. Mediastinal and hilar contours appear normal. LINES/TUBES: None. BONES: No acute osseous abnormality. THIS IS AN ELECTRONICALLY VERIFIED FINAL REPORT 08/03/2024 12:48 AM - Electronically signed by Patrick Zhou M.D. KH: KATH Report ID: [id number] Reading Location: [id number] IMPRESSION: Mild bilateral infiltrates are suspected superimposed on chronic lung changes. Sergio Rivera MD IM DIAGNOSTIC ORDERABLES Final Result * CBC with Auto Differential (08/02/2024 11:21 PM CDT) Only the most recent of2 resultswithin the time period is included. WBC 9.26 4.00 - 12.00 10(3)/mcL 08/03/2024 12:08 AM CDT [facility] RBC 4.62 3.80 - 5.30 10(6)/mcL 08/03/2024 12:08 AM CDT [facility] HEMOGLOBIN (HGB) 13.5 12.0 - 15.8 g/dL 08/03/2024 12:08 AM CDT [facility] HEMATOCRIT (HCT) 42.9 36.0 - 47.0 % 08/03/2024 12:08 AM CDT [facility] MCV 92.9 82.0 - 96.0 fL 08/03/2024 12:08 AM CDT [facility] MCH 29.2 26.0 - 34.0 pg 08/03/2024 12:08 AM CDT [facility] MCHC 31.5 31.0 - 36.0 g/dL 08/03/2024 12:08 AM CDT [facility] PLATELET COUNT 272 140 - 440 10(3)/mcL 08/03/2024 12:08 AM CDT [facility] RDW 12.8 11.8 - 15.5 % 08/03/2024 12:08 AM CDT [facility] MPV 10.2 9.7 - 12.4 fL 08/03/2024 12:08 AM CDT [facility] NEUTROPHILS 62.5 47.0 - 73.0 % 08/03/2024 12:08 AM CDT [facility] LYMPHOCYTES 27.1 18.0 - 42.0 % 08/03/2024 12:08 AM CDT [facility] MONOCYTES 7.1 4.0 - 12.0 % 08/03/2024 12:08 AM CDT [facility] EOSINOPHILS 3.0 0.0 - 5.0 % 08/03/2024 12:08 AM CDT [facility] BASOPHILS 0.3 0.0 - 1.0 % 08/03/2024 12:08 AM CDT [facility] ABSOLUTE NEUTROPHILS 5.78 1.60 - 7.70 10(3)/mcL 08/03/2024 12:08 AM CDT [facility] ABSOLUTE LYMPHOCYTES 2.51 1.30 - 3.20 10(3)/[facility] 08/03/2024 12:08 AM CDT [facility] ABSOLUTE MONOCYTES 0.66 0.20 - 1.00 10(3)/[facility] 08/03/2024 12:08 AM CDT [facility] ABSOLUTE EOSINOPHIL 0.28 0.00 - 0.40 10(3)/[facility] 08/03/2024 12:08 AM CDT [facility] ABSOLUTE BASOPHILS 0.03 0.00 - 0.10 10(3)/[facility] 08/03/2024 12:08 AM CDT [facility] NRBC PER 100 WBC 0 08/04/19 12:08 AM CDT [facility] Blood Venipuncture / Unknown 08/02/2024 11:21 PM CDT 08/03/2024 12:05 AM CDT us Sergio Rivera MD HEMATOLOGY ORDERABLES Final Resu lt [facility] [address] [place] [address] * (ABNORMAL) CMP (Comprehensive Metabolic Panel) (08/02/2024 11:21 PM CDT) Only the most recent of2 resultswithin the time period is included. SODIUM 138 136 - 145 mmol/L 08/03/2024 12:29 AM CDT [facility] POTASSIUM 4.4 3.5 - 5.1 mmol/L 08/03/2024 12:29 AM CDT [facility] CHLORIDE 104 98 - 107 mmol/L 08/03/2024 12:29 AM CDT [facility] CO2, VENOUS 26 22 - 30 mmol/L 08/03/2024 12:29 AM CDT [facility] ANION GAP 12.4 <18.0 mmol/L 08/03/2024 12:29 AM CDT [facility] GLUCOSE 353(H) 70 - 99 mg/dL 08/03/2024 12:29 AM [facility] BUN 18 10 - 20 mg/dL 08/03/2024 12:29 AM [facility] CREATININE, BLOOD 0.80 0.60 - 1.00 mg/dL 08/03/2024 12:29 AM [facility] BUN/CREATININE RATIO 23(H) 12 - 20 ratio 08/03/2024 12:29 AM [facility] TOTAL PROTEIN 8.4(H) 6.0 - 8.0 g/dL 08/03/2024 12:29 AM [facility] ALBUMIN 3.8 3.5 - 5.0 g/dL 08/03/2024 12:29 AM [facility] A/G RATIO 0.8(L) 1.0 - 2.2 08/03/2024 12:29 AM [facility] CALCIUM 10.0 8.7 - 10.5 mg/dL 08/03/2024 12:29 AM [facility] T BILI 0.4 0.2 - 1.2 mg/dL 08/03/2024 12:29 AM [facility] SGOT (AST) 23 <43 U/L 08/03/2024 12:29 AM [facility] SGPT (ALT) 22 <56 U/L 08/03/2024 12:29 AM [facility] ALKALINE PHOSPHATASE 67 40 - 150 U/L 08/03/2024 12:29 AM [facility] GFR, ESTIMATED >60 >=60 08/03/2024 12:29 AM [facility] Comment: Creatinine Clearance is the preferred criteria for selecting drug dose adjustments in renally impaired patients. The GFR is provided as additional pertinent clinical information. GFR is reported in mL/min/1.73 sq m. Calculation based on the Chronic Kidney Disease Epidemiology Collaboration (CKD- EPI) equation refit without adjustment for race. GFR, EST. >60 >=60 025 12:29 AM CDT [facility] GFR, EST. NONAFRICAN >60 >=60 08/03/2024 12:29 AM CDT [facility] Blood Venipuncture / Unknown 08/02/2024 11:21 PM CDT 08/03/2024 12:05 AM CDT Sergio Rivera MD CHEMISTRY ORDERABLES Final Resul t Performing Organization Address City/[facility]/ZIP Co de Phone Number [facility] [address] [place] [address] * TROPONIN I, HIGH SENSITIVITY (HSTRP) (08/01/2024 2:48 PM CDT) [facility] TROPONIN I, HIGH SENSITIVITY- [place] 4 <=14 ng/L 08/01/2024 3:45 PM CDT [facility] Comment: High-sensitivity troponin I results are reported in ng/L making the result appear to be 1,000 times higher than the contemporary troponin I value which is reported in ng/ml. Results from [place]. Blood Venipuncture / Unknown 08/01/2024 2:48 PM CDT 08/01/2024 3:08 PM CDT Jack Leiva MD CHEMISTRY ORDERABLES Deann l Result Performing Organization Address City/[facility]/ZIP Co de Phone Number [facility] [address] [place] [address] * Gold Top Tube (08/01/2024 2:48 PM CDT) Blood No Phlebotomy Charged / Unknown 08/01/2024 2:48 PM CDT 08/01/2024 3:12 PM CDT Jack Leiva MD CHEMISTRY ORDERABLES Deann l Result [facility] [address] [place] [address] * Blue Top Tube (08/01/2024 2:48 PM CDT) Blood No Phlebotomy Charged / Unknown 08/01/2024 2:48 PM CDT 08/01/2024 3:12 PM CDT Jack Leiva MD HEMATOLOGY ORDERABLES Fin al Result Performing Organization Address [facility] Co de Phone Number [facility] [address] [place] [address] * (ABNORMAL) ESR - Erythrocyte Sed. Rate (08/01/2024 2:48 PM CDT) ESR (SED RATE, ERYTHROCYTE SEDIMENTATION RATE) 66(H) <30 mm/h 08/01/2024 3:22 PM CDT [facility] Comment: Patients presenting with increased level of fibrinogen, gamma globulins, or abnormally shaped RBCs could affect the results for the erythrocyte sedimentation rate (ESR). Results should be clinically correlated. Blood Venipuncture / Unknown 08/01/2024 2:48 PM CDT 08/01/2024 3:08 PM CDT Jack Leiva MD HEMATOLOGY ORDERABLES Fin al Result Performing Organization Address [facility] Co de Phone Number [facility] [address] [place] [address] * Magnesium (08/01/2024 2:48 PM CDT) MAGNESIUM 1.6 1.6 - 2.6 mg/dL 08/01/2024 3:39 PM CDT [facility] Blood Venipuncture / Unknown 08/01/2024 2:48 PM CDT 08/01/2024 3:08 PM CDT Jack Leiva MD CHEMISTRY ORDERABLES Deann l Result Performing Organization Address City/[facility] Co de Phone Number [facility] [address] [place] [address] * CK - Total (08/01/2024 2:48 PM CDT) Pathologist [facility] CK (CPK) 137 29 - 168 U/L 08/01/2024 3:39 PM CDT [facility] Blood Venipuncture / Unknown 08/01/2024 2:48 PM CDT 08/01/2024 3:08 PM CDT Jack Leiva MD HEMATOLOGY ORDERABLES Fin al Result [facility] [address] [place] [address] * (ABNORMAL) CRP - C-Reactive Protein (08/01/2024 2:48 PM CDT) [facility] C-REACTIVE PROTEIN 4.07(H) <0.50 mg/dL 08/01/2024 3:39 PM CDT [facility] Blood Venipuncture / Unknown 08/01/2024 2:48 PM CDT 08/01/2024 3:08 PM CDT Jack Leiva MD CHEMISTRY ORDERABLES Deann l Result [facility] [place] [address] * B-Type Natriuretic Peptide (BNP) (08/01/2024 2:48 PM CDT) Pathologist [facility] B TYPE NATRIURETIC PEPTIDE 23 <100 pg/mL 08/01/2024 3:37 PM CDT [facility] Blood Venipuncture / Unknown 08/01/2024 2:48 PM CDT 08/01/2024 3:08 PM CDT Jack Leiva MD CHEMISTRY ORDERABLES Deann l Result Performing Organization Address City/[facility] Co de Phone Number [facility] [address] [place] [address] * EKG 12 LEAD (08/01/2024 2:41 PM CDT) Ventricular Rate 75 BPM EXTERNAL EKG Atrial Rate 75 BPM EXTERNAL EKG P-R Interval 134 ms EXTERNAL EKG QRS Duration 82 ms EXTERNAL EKG Q-T Duration 380 ms EXTERNAL EKG QTC CALCULATION 424 ms EXTERNAL EKG P [place] -77 degrees EXTERNAL EKG R [place] 28 degrees EXTERNAL EKG T [place] 53 degrees EXTERNAL EKG 08/01/2024 2:41 PM CDT Impressions EXTERNAL EKG - 08/04/2024 12:00 PM CDT Atrial-sensed ventricular-paced rhythm Abnormal ECG No previous ECGs available Confirmed by Maryann Clay ([id number]) on 08/04/2024 11:59:59 AM Narrative Procedure Note Maryann Clay MD - 08/04/2024 IMPRESSION: Atrial-sensed ventricular-paced rhythm Abnormal ECG No previous ECGs available Confirmed by Maryann Clay ([id number]) on 08/04/2024 11:59:59 AM us Jack Leiva MD IMG ECG ORDERABLES Final Result Performing Organization Address [facility] de Phone Number EXTERNAL EKG * XR CHEST SINGLE VIEW PORTABLE (08/01/2024 2:40 PM CDT) Anatomical Region Laterality Modality Chest N/A Digital Radiogra phy 08/01/2024 3:48 PM CDT Impressions 08/01/2024 3:51 PM CDT IMPRESSION: Patchy left basilar airspace opacities, which may be related to subsegmental atelectasis/scarring versus developing airspace disease. Narrative 08/01/2024 3:51 PM CDT EXAM DESCRIPTION: XR CHEST SINGLE VIEW PORTABLE REASON FOR STUDY: shortness of breath today. Hx. Breast cancer, DM TECHNIQUE: Single frontal radiographic view(s) of the chest. COMPARISON: 04/23/2019 FINDINGS: There is borderline cardiomegaly. Pulmonary vasculature and mediastinum are grossly stable. There is no definite evidence of a pneumothorax. There are patchy left basilar airspace opacities. There is no definite evidence of pleural effusion. The osseous structures are acutely grossly stable.. THIS IS AN ELECTRONICALLY VERIFIED FINAL REPORT 08/01/2024 3:48 PM - Electronically signed by Romelia Bowen D.O. PS: PS Report ID: [id number] Reading Location: [id number] Procedure Note Romelia Bowen DO - 08/01/2024 EXAM DESCRIPTION: XR CHEST SINGLE VIEW PORTABLE REASON FOR STUDY: shortness of breath today. Hx. Breast cancer, DM TECHNIQUE: Single frontal radiographic view(s) of the chest. COMPARISON: 04/23/2019 FINDINGS: There is borderline cardiomegaly. Pulmonary vasculature and mediastinum are grossly stable. There is no definite evidence of a pneumothorax. There are patchy left basilar airspace opacities. There is no definite evidence of pleural effusion. The osseous structures are acutely grossly stable.. THIS IS AN ELECTRONICALLY VERIFIED FINAL REPORT 08/01/2024 3:48 PM - Electronically signed by Romelia Bowen D.O. PS: PS Report ID: [id number] Reading Location: [id number] IMPRESSION: Patchy left basilar airspace opacities, which may be related to subsegmental atelectasis/scarring versus developing airspace disease. us Jack Leiva MD [facility] ORDERABLES Final Result * RSV,SARS-COV-2,INFLUENZA A&B BY PCR (08/01/2024 2:28 PM CDT) FLU A Negative Negative, Error 08/01/2024 3:20 PM CDT [facility] FLU B Negative Negative 08/01/2024 3:20 PM CDT [facility] RESP SYNC VIRUS Negative Negative 3:20 PM CDT [facility] SARSCOV2 NOT DETECTED (Reference Range for this test is Not Detected) 08/01/2024 3:20 PM CDT [facility] Comment:This test was perfor med by a Reverse Fagot Maker PCR Method. Swab NASOPHARYNGEAL STRUCTURE / Unknown Non-Phlebotomy Collection / Unknown 08/01/2024 2:28 PM CDT 08/01/2024 2:33 PM CDT us Jack Leiva MD MICROBIOLOGY - GENERAL OR DERABLES Final Result Performing Organization Address [facility] de Phone Number [facility] [address] [place] [address] * EKG SCAN (08/01/2024 12:00 AM CDT) 08/01/2024 Provider Scan IMG ECG ORDERABLES Final Result Performing Organization Address City/[facility] Co de Phone Number RESULTING AGENCY * PAIN CONSULT (07/24/2024 12:00 AM CDT) Only the most recent of2 resultswithin the time period is included. 07/24/2024 us Justen Gale MD GENERIC SCAN ORDERS CONSULT F inal Result Performing Organization Address [facility] Co de Phone Number SCAN * CT - CHEST (07/22/2024 12:00 AM CDT) 07/22/[address] ORDERABLES Final Result Performing Organization Address [facility] de Phone Number SCAN * XR - CHEST (07/21/2024 12:00 AM CDT) Only the most recent of3 resultswithin the time period is included. 07/21/2024 us Provider Scan IMG DIAGNOSTIC ORDERABLES Final Result Performing Organization Address [facility] de Phone Number SCAN * XR - LOWER EXTREMITY (07/10/2024 12:00 AM CDT) Only the most recent of2 resultswithin the time period is included. 07/10/2024 us Provider Scan IMG DIAGNOSTIC ORDERABLES Final Result Performing Organization Address [facility] de Phone Number SCAN * CT - ABDOMEN/PELVIS (06/21/2024 12:00 AM WORKDAY SENIOR ASSOCIATE) 06/21/2024 us Provider Scan IMG CT ORDERABLES Final Result Performing Organization Address [facility] de Phone Number SCAN * URINALYSIS (UA) RANDOM (05/14/2024 12:00 AM WORKDAY SENIOR ASSOCIATE) 05/14/2024 us Provider Scan URINE ORDERABLES Final Result Performing Organization Address [facility] de Phone Number SCAN * EXTERNAL GASTROENTEROLOGY REFERRAL (05/07/2024 12:00 AM WORKDAY SENIOR ASSOCIATE) 05/07/2024 Justen Gale MD OUTPT REFERRALS EXT/INT Final Result Performing Organization [facility] de Phone Number SCAN * HEMOGLOBIN, A1C (10/02/2023 12:00 AM CDT) HGB-A1C 7.8 SCAN 10/02/2023 us Provider Scan CHEMISTRY ORDERABLES Final Resul t Performing Organization [facility] de Phone Number SCAN * PATHOLOGY CYTOLOGY CAD OPERATOR (07/05/2022 2:24 PM CDT) SPECIMEN ADEQUACY A scant cellular component is noted. Scant cellularity is likely due to presence of lubricant. 07/08/2022 8:38 AM CDT [facility] DESCRIPTIVE DIAGNOSIS NEGATIVE FOR INTRAEPITHELIAL LESIONS OR MALIGNANCY. 07/08/2022 8:38 AM CDT [facility] at 0838 CDT OTHER FINDINGS Atrophic hormonal pattern. 07/08/2022 8:38 AM CDT [facility] Automated Examination This sample was not evaluated by the automated imaging and review system ([employer] System, [employer], [place], [place] due to technical and / or biologic factor(s). The case was screened, reviewed, and finalized by a occup ther and / or pathologist. 07/08/2022 8:38 AM CDT [facility] Disclaimer The PAP smear is [...] clinically indicated. 07/08/2022 8:38 AM CDT [facility] Other CERVIX UTERI STRUCTURE / Unknown Non-Phlebotomy Collection / Unknown 07/05/2022 2:24 PM CDT 07/05/2022 2:24 PM CDT us Pili Elkins APRN, NETTA PATHOLOGY/CYTOLOGY O RDERABLES Final Result [facility] [address] [place] [address], [place] * HUMAN PAPILLOMA VIRUS (HPV) (07/05/2022 2:24 PM CDT) HPV OTHER HIGH RISK TYPES, PCR NEGATIVE NEGATIVE 07/06/2022 2:37 PM CDT [facility] Comment: The following Other High [...] NEGATIVE NEGATIVE 07/06/2022 2:37 PM CDT [facility] Comment: A negative high-risk HPV [...] NEGATIVE NEGATIVE 07/06/2022 2:37 PM CDT [facility] Comment: A negative high-risk HPV [...] SCREENING 07/06/2022 2:37 PM CDT [facility] Other Non-Phlebotomy Collection / Unknown 07/05/2022 2:24 PM CDT 07/05/2022 2:24 PM CDT Narrative [facility] - 07/06/2022 2:37 PM CDT Performed by Real-Time Polymerase Chain Reaction (PCR) on the Ronnie Vinay 4800. This assay has been validated for use with post-aliquot samples from the [employer] T5000 processor. us Pili Elkins APRN, NETTA LAB SEND OUTS Deann l Result [facility] [address] [place] [address], [place] [facility] [address] [place] [address] * COLONOSCOPY (01/09/2020) us Genaro Jensen DO PROCEDURE/MINOR SURGICAL ORDERA BLES Final Result * AMB REFERRAL TO PODIATRY (08/13/2019) Alvarez Mensah MD OUTPATIENT REFERRALS Final Res ult * POCT STOOL, OCCULT BLOOD, DIAGNOSTIC (09/07/2018 1:20 PM CDT) OCCULT BLOOD, STOOL Negative Negative, Other POC HEMOCULT CONTROL Metal Furniture Polisher Pass 09/07/2018 1:20 PM CDT Pili Elkins APRN, NETTA POINT OF CARE TESTIN G (MANUAL) Final Result from Last 3 Months or Most Recently Relevant to Health Maintenance Insurance MEDICARE C [facility] Care Teams Field Project Manager Relationship Specialty Start Date End Date Justen Gale MD [address] [address] PCP - General Family Medicine 10/17/17 David Roberts APRN, STYRENE DEHYDRATION REACTOR OPERATOR [address] [place] [address] Nurse Practitioner Advanced Practice Nurse 01/31/22 Annel Rod MD #2 [facility] [address] [place] [address] Consulting Physician Endocrinology 07/01/22
--- OUTSIDE RECORDS SUMMARY | 2024-08-05 17:01 | XMS_ITS | Encounter Summary ---
Author Organization [facility] Address [address] [place] [address] Phone Care Team Providers Care Dba Developer Name Role Phone Justen Gale MD Primary Care Provider [phone] David Roberts APRN, CALENDERING MACHINE OPERATOR Unavailable [phone] Annel Rod MD Unavailable Reason for Visit * Reason Comments Medication Refill Encounter Details Date Type Department Care Team (Late st Contact Info) Description 07/12/2022 Refill [facility] [address] [place] [phone] Justen Gale MD #[address] [address] Medication Refill Social History Tobacco Use Types [...] 07/05/22 Office Visit Pili Elkins APRN, NETTA [facility] [place] 05/02/22 Office Visit Justen Gale MD [facility] 03/03/22 Office Visit Pili Elkins APRN, CALENDERING MACHINE OPERATOR [facility] [place] 01/03/22 Office Visit Dannielle Berg PAC [facility] [place] 12/07/21 Office Visit Pili Elkins APRN, NETTA [facility] [place] 11/09/21 Office Visit Pili Elkins APRN, NETTA [facility] [place] [place] 10/08/21 Office Visit Angelito Alegria APRN, NETTA [facility] [place] 08/30/21 Office Visit Justen Gale MD [facility] Showing recent visits within past 365 days and meeting all other requirements Future Appointments No visits were found meeting these conditions. Showing future appointments within next 90 days and meeting all other requirements documented in this encounter Plan of Treatment Upcoming Encounters Date Type Department Care Team (Late st Contact Info) Description 08/12/2024 11:30 AM CDT Office Visit [facility] Family Medicine [facility] [address] [place] [address] Angelito Alegria APRN, CALENDERING MACHINE OPERATOR #[address] [address] 09/18/2024 2:45 PM CDT Office Visit [facility] Endocrinology [facility] [address] [place] [phone] Annel Rod MD #[address] [address] documented as of this encounter Visit Diagnoses Not on filedocumented in this encounter Additional Health Concerns Infection Onset Date Last Indicated Resolved Time COVID - 19 08/01/2024 08/01/2024 08/01/2024 3:20 PM CDT Assessment Noted Time PHQ-9 Depression Total Score: 0 07/21/19 3:00 PM CDT documented as of this encounter Care Teams Dba Developer Relationship Specialty Start Date End Date Justen Gale MD #[address] [address] PCP - General Family Medicine 10/17/17 David Roberts APRN, CALENDERING MACHINE OPERATOR [address] [place] [address] Nurse Practitioner Advanced Practice Nurse 01/31/22 Annel Rod MD #[address] [address] (work) Consulting Physician Endocrinology 07/01/22 documented as of this encounter
--- OUTSIDE RECORDS SUMMARY | 2024-08-05 17:01 | XMS_ITS | Encounter Summary ---
Author Organization [facility] Address [address] [place] [address] Phone Care Team Providers Care Launching Pad Mechanic Name Role Phone Justen Gale MD Primary Care Provider [phone] David Roberts APRN, [employer] WEBSPHERE PORTAL DEVELOPER Unavailable [phone] Annel Rod MD Unavailable Reason for Visit * Reason Comments Medication Refill Encounter Details Date Type Department Care Team (Late st Contact Info) Description 02/07/2023 Refill [facility] [address] [place] [address] Pili Elkins APRN, [employer] WEBSPHERE PORTAL DEVELOPER #[address] [address] Medication Refill Social History Tobacco [...] Description 08/12/2024 11:30 AM CDT Office Visit [facility] - Family Medicine - [place] [address] [place] [address] Angelito Alegria APRN, NETTA #2 [facility] [address] [place] [address] 09/18/2024 2:45 PM CDT Office Visit [facility] - Endocrinology - [place] [address] [place] [address] Annel Rod MD #2 [facility] [address] [place] [address] documented as of this encounter Visit Diagnoses Diagnosis Essential hypertension Unspecified essential hypertension documented in this encounter Additional Health Concerns Infection Onset Date Last Indicated Resolved Time COVID - 19 08/01/2024 08/01/2024 08/01/2024 3:20 PM CDT Assessment Noted Time PHQ-9 Depression Total Score: 8 01/18/20 2:24 PM CDT documented as of this encounter Care Teams Launching Pad Mechanic Relationship Specialty Start Date End Date Justen Gale MD #2 [facility] [address] [place] [address] PCP - General Family Medicine 10/17/17 David Roberts, BOILER SETTER, [employer] WEBSPHERE PORTAL DEVELOPER [address] [place] [address] Nurse Practitioner Advanced Practice Nurse 01/31/22 Annel Rod MD #2 [facility] [address] [place] [address] Consulting Physician Endocrinology 07/01/22 documented as of this encounter
--- OUTSIDE RECORDS SUMMARY | 2024-08-05 17:01 | XMS_ITS | Clinical Summary ---
Author Organization [facility] Address [address] [facility] [place] [address] Care Team Providers Care Transplant Surgeon Name Role Phone Justen Gale MD Primary Care Provider [phone] Source Comments [facility],non-[facility] Affiliates and Associated Physician Practices is amultiple site organization consisting of ambulatory clinics and hospital sitesin [place], [place], [place]. This disclosure is being madepursuant to the Care Everywhere program and may not contain all information available regarding this patient. Last updated 18.[facility] Meeting To You Allergies Active Allergy Reactions Criticality Noted Date [...] document. Alwaysverify current medications with the patient. exemestane (AROMASIN) 25 MG tablet Take 1 (one) tablet by mouth DAILY 7 Active rOPINIRole (REQUIP) 5 MG tablet TAKE 1 TABLET BY MOUTH EVERY NIGHT 2 Active Lancets (ONETOUCH DELICA PLUS 33G EXTRA FINE LANCET) USE FOUR TIMES DAILY 1 Active ONETOUCH ULTRA test strip 4 times daily 1 Active insulin pen needle (B-D ULTRAFINE III SHORT PEN) 31G X 8 MM needle 4 times daily 300 Each 2 Active HumaLOG KwikPen 100 UNIT/ML pen 26 (twenty six) Units 3 times daily before meals 2 Active Lantus SoloStar pen 40 (forty) Units once 2 Active rivaroxaban (Xarelto) 20 MG tabletIndicatio ns:Deep Vein Thrombosis,Pulm onary Embolism Take 1 (one) tablet by mouth daily with food Reasons: Blockage of Blood Vessel to Lung by a Particle, Blood Clot in a Deep Vein Active hydrOXYzine HCl (Atarax) 25 MG tablet Take 1 (one) tablet by mouth 3 times daily as needed for Itching 30 tablet 3 Active lidocaine (Lidoderm) 5 % patch Apply 1 (one) patch to skin every 24 hours Apply patch to most painful area and remove after 12 hours. May reapply a new patch 12 hours later. 18 patch 3 Active Multiple Vitamins-Minera ls (Multivitamin Womens 50+ Adv) TABS Take 1 tablet by mouth once daily Active polyethylene glycol 3350 (Miralax) 17 g packet Take 17 (seventeen) g by mouth once daily 4 Active cyclobenzaprine (Flexeril) 5 MG tablet Take 1 (one) tablet by mouth 3 times daily as needed (Muscle spasms) 30 tablet 4 Active Additional Information Patient not taking.Reported on 07/17/2023 methenamine hippurate (Hiprex) 1 GM tablet Take 1 (one) tablet by mouth 2 times daily 60 tablet 2 4 Active Continuous Blood Gluc Sensor (FreeStyle Eileen 2 Sensor Systm) [facility] APPLY 1 SENSOR AND WEAR FOR 14 DAYS TO CHECK BLOOD SUGAR 4 Active gabapentin (Neurontin) 300 MG capsule Take 1 (one) capsule by mouth 3 times daily 4 Active naloxone HCl (Narcan) 4 MG/0.1ML nasal spray 4 Active ondansetron, disintegrating, (Zofran ODT) 4 MG tablet DISSOLVE 1 TABLET ON THE TONGUE EVERY 8 HOURS NEEDED FOR NAUSEA OR VOMITING 4 Active acetaminophen (Tylenol) 500 MG tablet Take 2 (two) tablets by mouth 3 times daily Maximum allowable Acetaminophen amount = 4 Grams (4000 mg) / 24 hours. 4 Active oxyCODONE, immediate release, (Roxicodone) 10 MG tabletIndicatio ns:Low back pain, unspecified TAKE ONE TABLET BY MOUTH EVERY 4 HOURS NEEDED 20 tablet 4 Active amoxicillin-cla vulanate (Augmentin) 875-125 MG tablet TAKE ONE TABLET BY MOUTH 2 TIMES A DAY FOR 7 DAYS 14 tablet 4 Active oxyBUTYnin CR 24hr (Ditropan XL) 15 MG tablet Take 1 (one) tablet by mouth once daily 90 tablet 4 4 Active Active Problems Problem Noted Date Diagnosed [...] wound, post-operative 02/21/2023 Intractable chronic post-traumatic headache 09/0 06/2022 Right hand weakness 12/25/2022 Acute intractable [...] Date Resolved Date Rash 03/21/2023 04/18/2023 Immunizations Immunization Administration Dates Next Due INFLUENZA VACCINE, TRIV. [...] FLUARIX; AFLURIA QUADRIVALENT; 6MO+), 0.5 ML (IIV4) 01/03/2022,05/04/2021,01/18/2020,2018,01/24/2018,02/14/2017 TDAP, HISTORIC VACCINE 02/23/2016 Family History Medical [...] care, and heating? Somewhat hard 05/16/2023 [facility] [place] of Occupat ional Health - Occupational Stress [...] in a mcc (including now)? No 05/16/2023 Comments No Sex and Gender Information Value Date Recorded Sex Assigned at Not on file Legal Sex Female 6:53 PM BEHAVIORAL THERAPY COORDINATOR Gender Identity Not on file Sexual [...] COVID-19 VACCINE ( season) 2023 05/04/2021, 06/29/2020 DEPRESSION SCREENING 04/24/2024 DIABETES - URINE PROTEIN SCREENING 04/24/2024 09/11/2021 MEDICARE AWV CALENDAR YEAR 2024 DIABETES-SERUM CREATININE 12/03/20242023, 07/30/2023, 07/26/2023, Additional history exists INFLUENZA VACCINE (Season Ended) 2024 01/17/2023, 01/17/2023, 01/03/2022, Additional history exists DTAP/TDAP/TD VACCINES (2 - [...] this topic Medical Devices Implanted Type Area Frog Shaker Device Identifier Shelf Expiration Date Model / Serial / Lot Lead Nrstm 60cm Penta 3mm Pdl 16 Chnl Implanted:Qt y: 1 on 09/16/2021 by Maxi Gregg MD at [facility] Right: Spine Thoracic Advanced [employer] [id number] / / Description:JJ Slnt Dura Duraseal Pg Trilysine Amine 5 Implanted:Qt y: 1 on 09/16/2021 by Maxi Gregg MD at [facility] Right: Spine Thoracic Integra [employer] David [id number] / / Description:JJ Proclaim Plus 5 Implanted:Qt y: 1 on 02/16/2023 by Maxi Gregg MD at [facility] Left: Back Cardenas Spine [id number] 11/07/2024 3670 / [id number] / Explanted Type Area Frog Shaker Device Identifier Shelf Expiration Date Model / Serial / Lot Gntr Nrstm 1.95inx2.19in Proclaim Elt Implanted:Qty: 1 on 09/16/2021 by Maxi Gregg MD at [facility] Explanted:Qty: 1 on 10/30/2021 by Maxi Gregg MD at [facility] Right: Spine Thoracic St [...] - 26 mg/dL 07/30/2023 2:31 AM CDT [facility] Creatinine 0.67 0.56 - 0.96 mg/dL 07/30/2023 2:31 AM CDT [facility] Sodium 136 136 - 145 mmol/L 07/30/2023 2:31 AM CDT [facility] Potassium 4.4 3.5 - 4.5 [...] T Brian Bravo MD LAB - CHEMISTRY ORDERABLES F inal Result [facility] [address] [place] [address], [facility] [phone] * HEPATITIS C AB SCREEN RFLX NAAT QUANT (02/21/2023 6:30 PM CDT) Hepatitis C Antibody Non-react hugh Non-reac tive 02/21/2023 7:32 PM [facility] Comment:Hepatitis C Antibody screen indicates no [...] CDT Epi Solitario MD LAB - CHEMISTRY ORDERABLES Fi nal Result Performing Organization Address City/[facility]/ZIP Co de Phone Number [facility] [address] [place] [address], [place] [phone] * (ABNORMAL) HEMOGLOBIN A1C (12/25/2022 3:56 AM CDT) Hemoglobin A1c 8.6(H) <=5.6 % 12/25/2022 2:47 PM CDT [facility] Estimated Average Glucose 200 mg/dL 12/25/2022 2:47 PM CDT [facility] Comment: HbA1c Interpretation: Normal : < 5.7% Pre-diabetes: 5.7-6.4% Diabetes: Equal to or greater than 6.5% Test results diagnostic of diabetes should be repeated for confirmation. Treatment target values recommended by ADA and other clinical organizations should be used to evaluate metabolic control in patients. Reference: [place] [employer], Standards of Care in Diabetes -2020 In patients 70 years and older consider HbA1c target range of 7.0-7.5% (Reference: Travis Storey, et al. JAMDA. 2012) The Sebia assay for the measurement of HbA1c is a National Glycohemoglobin Standardization Program (NGSP) certified method. Blood BLOOD SPECIMEN / Unknown Lab Venipuncture / Unknown 12/25/2022 3:56 AM CDT 12/25/2022 4:30 AM CDT us Jerrod Rodriguez MD LAB - CHEMISTRY ORDERA BLES Final Result [facility] [address] [place] [address], [place] [phone] from Last 3 Months or Most Recently Relevant to Health Maintenance Insurance Advance Directives * Full Code (Latest Code [...] 3:37 AM 03/23/2023 7:14 PM Care Teams Transplant Surgeon Relationship Specialty Start Date End Date Justen Gale MD PCP - General 07/05/21
--- OUTSIDE RECORDS SUMMARY | 2024-08-05 17:01 | XMS_ITS | Clinical Summary ---
Author Organization [facility] Address [address] [place] [address] Phone Care Team Providers Care Slimer Name Role Phone Justen Gale MD Primary Care Provider [phone] Allergies Active Allergy Reactions Criticality Noted Date [...] - 6.0 % 09/29/2017 10:28 AM CDT [employer] [facility] EST. AVG GLUCOSE, A1C 186 mg/dL 09/29/2017 10:28 AM CDT [employer] [facility] Blood Venipuncture / Unknown 09/28/2017 8:41 PM CDT 09/28/2017 8:46 PM CDT Narrative [facility] LABORATORY [facility] - 09/29/2017 10:28 AM CDT HGB A1C INTERPRETATION NORMAL: <5.7% PRE-DIABETES: 5.7 - 6.4% DIABETES: 6.5% OR GREATER us Francisco Castaneda MD CHEMISTRY ORDERABLES Final Resul t [facility] [employer] [facility]# [id number] [address] [facility] [place] [address] * (ABNORMAL) LIPID PANEL (09/28/2017 8:41 PM CDT) CHOLESTEROL 174 <200 mg/dL 09/30/2017 2:45 AM CDT [facility] [employer] [facility] TRIGLYCERIDE 109 <150 mg/dL 09/30/2017 2:45 AM CDT [facility] [employer] [facility] HDL 45 40 - 59 mg/dL 09/30/2017 2:45 AM CDT [facility] [employer] [facility] LDL CALCULATED 107(H) <100 mg/dL 09/30/2017 2:45 AM CDT [facility] [employer] [facility] NON-HDL CHOLESTEROL 129 <130 mg/dL 09/30/2017 2:45 AM CDT [facility] [employer] [facility] Blood Venipuncture / Unknown 09/28/2017 8:41 PM CDT 09/28/2017 8:46 PM CDT Narrative [facility] - 09/30/2017 2:45 AM CDT TOTAL [...] Castaneda MD CHEMISTRY ORDERABLES Final Resul t [facility] [facility] [id number] [address] [facility] [employer] [facility] [address] from Last 3 Months or Most Recently Relevant to Health Maintenance Insurance Advance Directives For more information, please contact: [phone] * Full Code (Latest Code Status on File) Date Activated Date Inactivated Comments 09/29/2017 7:45 AM 09/30/2017 9:14 PM * Full Code Date Activated Date Inactivated Comments 09/29/2017 1:25 AM 09/29/2017 7:45 AM Care Teams Slimer Relationship Specialty Start Date End Date Justen Gale MD [address] [facility] [address] [place] [address] PCP - General Cardiovascular Disease 09/14/17
--- OUTSIDE RECORDS SUMMARY | 2024-08-05 17:01 | XMS_ITS | Encounter Summary ---
Author Organization [facility] Address [address] [place] [address] Phone Care Team Providers Care Excelsior Machine Tender Name Role Phone Justen Gale MD Primary Care Provider [phone] David Roberts APRN, PROJECTION ENGINEER Unavailable [phone] Annel Rod MD Unavailable Reason for Visit * Reason Comments Medication Refill Encounter Details Date Type Department Care Team (Late st Contact Info) Description 10/24/2022 Refill [facility] - Family Medicine [facility] [address] [place] [address] Pili Elkins APRN, PROJECTION ENGINEER #[address] [address] Medication Refill Social History Tobacco [...] AM CDT Sexual Orientation Not on file documented as of this encounter Plan of Treatment Upcoming Encounters Date Type Department Care Team (Late st Contact Info) Description 08/12/2024 11:30 AM CDT Office Visit [facility] - [facility] Medicine [facility] [address] [place] [address] Angelito Alegria, ED TRANSPORTER, PROJECTION ENGINEER #[address] [address] 09/18/2024 2:45 PM CDT Office Visit [facility] - Endocrinology [facility] [address] [place] [address] Annel Rod MD #[address] [address] documented as of this encounter Visit Diagnoses Diagnosis Essential hypertension Unspecified essential hypertension documented in this encounter Additional Health Concerns Infection Onset Date Last Indicated Resolved Time COVID - 19 08/01/2024 08/01/2024 08/01/2024 3:20 PM CDT Assessment Noted Time PHQ-9 Depression Total Score: 0 09/17/19 23 11:00 AM CDT documented as of this encounter Care Teams Excelsior Machine Tender Relationship Specialty Start Date End Date Justen Gale MD #[address] [address] PCP - General Family Medicine 10/17/17 David Roberts APRN, PROJECTION ENGINEER [address] [place] [address] Nurse Practitioner Advanced Practice Nurse 01/31/22 Annel Rod MD [address] [place] [phone] Consulting Physician Endocrinology 07/01/22 documented as of this encounter
--- OUTSIDE RECORDS SUMMARY | 2024-08-05 17:01 | XMS_ITS | Encounter Summary ---
Author Organization [facility] Address [address] [place] [address] Phone Care Team Providers Care Security Vehicle Patrol Officer Name Role Phone Justen Gale MD Primary Care Provider [phone] David Roberts APRN, SPLUNK ARCHITECT Unavailable [phone] Annel Rod MD Unavailable Reason for Visit * Reason Onset Date Comments Results 08/02/2024 Encounter Details Date Type Department Care Team (Late st Contact Info) Description 08/02/2024 Telephone [facility] [address] [place] [address] Justen Gale MD #[address] [address] Results Social History Tobacco Use Types Packs/Day [...] encounter Miscellaneous Notes * Telephone Encounter - Angelito Alegria APRN, CNP - 08/02/2024 10:59 AM CDT See other telephone call * Telephone Encounter - Arely Soni RN - 08/02/2024 10:53 AM CDT Situation: Results Background: Patient contacting PCP office.. Caller requesting results from recent testing. Per chart review, patient completed labs on 08/01/24. 3 labs ordered by Magali Alegria but patient endedup in the Emergency Department before they could be drawn at the office. Labs ordered were drawn along with others while at hospital. Patient states she was advised some were abnormal and to follow up with PCP. Assessment: Testing has resulted, but provider has not reviewed. Recommendation: Caller notified that results are awaiting provider review. Please advise. documented in this encounter Plan of Treatment Upcoming Encounters Date Type Department Care Team (Late st Contact Info) Description 08/12/2024 11:30 AM CDT Office Visit [facility] - Family Medicine - [place] [address] [place] [address] Angelito Alegria APRN, NETTA #[address] [address] 09/18/2024 2:45 PM CDT Office Visit [facility] - Endocrinology - [place] [address] [place] [phone] Annel Rod MD #[address] [address] documented as of this encounter Visit Diagnoses Not on filedocumented in this encounter Additional Health Concerns Assessment Noted Time PHQ-9 Depression Total Score: 0 08/02/19 25 1:09 PM CDT documented as of this encounter Care Teams Security Vehicle Patrol Officer Relationship Specialty Start Date End Date Justen Gale MD #[address] [address] PCP - General Family Medicine 10/17/17 David Roberts APRN, SPLUNK ARCHITECT [address] [place] [address] Nurse Practitioner Advanced Practice Nurse 01/31/22 Annel Rod MD #[address] [address] Consulting Physician Endocrinology 07/01/22 documented as of this encounter
--- OUTSIDE RECORDS SUMMARY | 2024-08-05 17:01 | XMS_ITS | Encounter Summary ---
Author Organization [facility] Address [address] [place] [address] Phone Care Team Providers Care Roll Slicing Machine Tender Name Role Phone Justen Gale MD Primary Care Provider [phone] David Roberts APRN, LOSS PREVENTION COORDINATOR Unavailable [phone] Annel Rod MD Unavailable Reason for Visit * Reason Comments Medication Refill Encounter Details Date Type Department Care Team (Late st Contact Info) Description 04/13/2023 Refill [facility] - Endocrinology - [place] [address] [place] [address] Annel Rod MD #[address] [address] Medication Refill Social History [...] Jennifer Wang, RN - 04/14/2023 10:00 AM NOXIOUS WEEDS AND PEST INSPECTOR Requested Prescriptions Pending Prescriptions Disp Refills ??? Continuous Blood Gluc Sensor (FreeStyle Eileen 2 Sensor) Misc [Pharmacy Med Name: FREESTYLE EILEEN 2 SENSOR] 6 Each 1 Sig: APPLY 1 SENSOR AND WEAR FOR 14 DAYS TO CHECK BLOOD SUGAR Next appt: 05/30/2023 OUS WEEDS AND PEST INSPECTOR documented in this encounter Plan of Treatment Upcoming Encounters Date Type Department Care Team (Late st Contact Info) Description 08/12/2024 11:30 AM CDT Office Visit [facility] - Family Medicine - [place] [address] [place] [address] Angelito Alegria APRN, LOSS PREVENTION COORDINATOR [address]2 [facility] [address] [place] [address] 09/18/2024 2:45 PM CDT Office Visit [facility] - Endocrinology - [place] [address] [place] [address] Annel Rod MD #2 [facility] [address] [place] [address] documented as of this encounter Visit Diagnoses Not on filedocumented in this encounter Additional Health Concerns Infection Onset Date Last Indicated Resolved Time COVID - 19 08/01/2024 08/01/2024 08/01/2024 3:20 PM CDT Assessment Noted Time PHQ-9 Depression Total Score: 8 01/18/20 23 2:24 PM CDT documented as of this encounter Care Teams Roll Slicing Machine Tender Relationship Specialty Start Date End Date Justen Gale MD #2 [facility] [address] [place] [address] PCP - General Family Medicine 10/17/17 David Roberts APRN, NETTA [address] [place] [address] Nurse Practitioner Advanced Practice Nurse 01/31/22 Annel Rod MD #2 [facility] [address] [place] [phone] Consulting Physician Endocrinology 07/01/22 documented as of this encounter
--- OUTSIDE RECORDS SUMMARY | 2024-08-05 17:01 | XMS_ITS ---
Author Organization [facility] Address [address] [facility] [place] [address] Care Team Providers Care Chemist Enzymes Name Role Phone Justen Gale MD Primary Care Provider [phone] Active Problems Problem Noted Date Diagnosed Date [...] - Continue home CPAP Neuropathy 07/05/2017 Current Treatment and Therapy Plans No current plan information found. Past Treatment and Therapy Plans No past plan information found. Lifetime Dose Tracking * Chemical Lifetime Dose Automatic Entry Manual Entr y Dose Length Product 1,838 mGy-cm 1,838 mGy-cm 0 mGy-cm Resolved Problems Problem Noted Date Diagnosed Date Resolved Date Rash 03/21/2023 04/18/2023
--- OUTSIDE RECORDS SUMMARY | 2024-08-05 17:01 | XMS_ITS | Encounter Summary ---
Author Organization [facility] Address [address] [place] [address] Phone Care Team Providers Care Supervisor Mold Construction Name Role Phone Justen Gale MD Primary Care Provider [phone] David Roberts APRN, LIFE SKILLS INSTRUCTOR Unavailable [phone] Annel Rod MD Unavailable Reason for Visit * Reason Onset Date Comments Advice Only 11/21/2023 Encounter Details Date Type Department Care Team (Late st Contact Info) Description 11/21/2023 Telephone [facility] [address] [place] [address] Justen Gale MD #[address] [address] Advice Only Social History Tobacco Use Types [...] 11/21/2023 3:17 PM CDT RFC: Alejandra from [facility] is calling to state that patient is listed as being a diabteic but is not on a statin. Please call Alejandra (relationship to patient n/a) back regarding above referenced patient. Patient's Provider is Justen Gale MD . documented in this encounter Plan of Treatment Upcoming Encounters Date Type Department Care Team (Late st Contact Info) Description 08/12/2024 11:30 AM CDT Office Visit [facility] - Family Medicine - [place] [address] [place] [address] Angelito Alegria APRN, LIFE SKILLS INSTRUCTOR #2 [facility] [address] [place] [address] 09/18/2024 2:45 PM CDT Office Visit [facility] - Endocrinology - [place] [address] [place] [address] Annel Rod MD #2 [facility] [address] [place] [address] documented as of this encounter Visit Diagnoses Not on filedocumented in this encounter Additional Health Concerns Infection Onset Date Last Indicated Resolved Time COVID - 19 08/01/2024 08/01/2024 08/01/2024 3:20 PM CDT Assessment Noted Time PHQ-9 Depression Total Score: 8 01/18/20 23 2:24 PM CDT documented as of this encounter Care Teams Supervisor Mold Construction Relationship Specialty Start Date End Date Justen Gale MD #[address] [address] PCP - General Family Medicine 10/17/17 David Roberts APRN, LIFE SKILLS INSTRUCTOR [address] [place] [address] Nurse Practitioner Advanced Practice Nurse 01/31/22 Annel Rod MD #[address] [phone] Consulting Physician Endocrinology 07/01/22 documented as of this encounter
--- OUTSIDE RECORDS SUMMARY | 2024-08-05 17:01 | XMS_ITS | Clinical Summary ---
Author Organization [facility] Address [facility] [place] [address] Care Team Providers Care Edge Stripper Name Role Phone Meena Bansal MD Unavailable Justen Gale MD Primary Care Provider [phone] Allergies Active Allergy Reactions Criticality Noted Date [...] reflux disease 09/05/2020 Malignant tumor of breast ([facility]) 08/22 Knee pain 09/05/2020 Other chronic pain [...] 03/18/2018 Assessment & Plan (03/18/2018 2:55 AM PILOT TEACHER): Acute, patient reported as epigastric pain however may be atypical presentation. Troponins negative x2. Also in differential is GERD, PUD - Admit to observation -Follow-up troponins -Monitor vitals -N.p.o. at midnight - Stress echo in a.m. - Consider cardiology consult based on results of stress test -Begin Protonix Epigastric pain 03/18/2018 Assessment & Plan (03/18/2018 5:39 AM PILOT TEACHER): Acute, non radiating, worsens with lying down, [...] Speech impairment 01/30/2018 CVA (cerebral vascular accident) ([facility] HHS/ C) 01/24/2018 Neck pain on right side 12/01/2017 Anxiety and depression 11/12/2017 Chronic anticoagulation 11/09/2017 Constipation 11/09/2017 Uncontrolled type 2 diabetes mellitus with hyperglycemia, with long-term current use of insulin ([facility]) 11/06/2017 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 -continue exemestane Acute deep vein thrombosis ( DVT) of proximal vein of right lower extremity ([facility]) 10/17/2017 Dysuria 10/17/2017 Hyperthyroidism 10/17/2017 Cancer of overlapping sites of left female breast ([facility]) 10/13/2017 Syncope 09/29/2017 High blood pressure 08/22/2017 Overview (09/05/2020): Last Assessment & Plan: On lisinopril Last Assessment & Plan: On lisinopril Assessment & Plan (08/30/2018 9:57 PM CDT): Chronic. Controlled. -continue home medications Assessment & Plan (03/18/2018 2:51 AM PILOT TEACHER): Chronic, BPs currently 127/78 - To new home meds Morbid obesity with BMI of 50.0-59.9, adult 04/2017 Sepsis ([facility]) 08/22/2017 Type 2 diabetes mellitus ([facility]) 08/22 Overview (09/05/2020): Last Assessment & Plan: Hold janument. Start on SSI and accucheks Assessment & Plan (08/30/2018 10:01 PM CDT): Chronic. Controlled. -continue home insulin regimen of lantus 50 units q am -lispro 20 units with breakfast and lunch. 22 units with dinner. Assessment & Plan (03/18/2018 2:53 AM PILOT TEACHER): Chronic, patient reports medical compliance with 50 units of Lantus daily and 15 units of Humalog before meals. No recent HbA1c - Monitor POC glucose -[place] home regimen - Consider sliding scale insulin -Follow-up HbA1c Bronchitis 08/20/2017 LUL (obstructive sleep apnea) 08/01/2017 Assessment & Plan (03/18/2018 2:54 AM PILOT TEACHER): Chronic, on CPAP at home - Continue home CPAP History of DVT (deep vein thrombosis) 08/01/2017 Assessment & Plan (03/18/2018 2:54 AM PILOT TEACHER): Chronic - Continue home Xarelto Chest pressure 08/01/2017 Diet-controlled diabetes mellitus ([facility]/H CC) 08/01/2017 History of pulmonary embolism 08/01/2017 Hyponatremia 08/01/2017 Positive blood culture 08/01/2017 Acute pharyngitis 07/27/2017 Generalized weakness 07/27/2017 Nausea and vomiting 07/26/2017 Overview (09/05/2020): Overview: Overview: Added automatically from request for surgery [id number] Overview: Added automatically from request for surgery [id number] Added automatically from request for surgery [id number] Neuropathy 07/05/2017 History of breast cancer 02/06/2017 Pulmonary embolism ([facility]) 08/09/2016 Overview (09/05/2020): Last Assessment & Plan: [...] syndrome Assessment & Plan (03/18/2018 2:54 AM PILOT TEACHER): Chronic -Continue home ropinirole Pain of lower extremity 03/12/2013 Overview (09/05/2020): Leg pain Immunizations Immunization Administration Dates Next Due Influenza (Generic) 01/24/2018, [...] = 0.6 oz pur e alcohol) [facility] Utilities Answer Date Recorded In the past 12 months has [employer] gas, oil, or water Close threatened to shut off services in your [...] any time in the past 12 m [facility], were you homeless or living in a senior living (including now)? No 10/13/2023 Comments No Sex and Gender Information Value Date Recorded Sex Assigned at Female 09/06/2020 12:50 AM CDT Legal Sex Female 10:47 AM CDT Gender Identity Female 09/06/2020 12:50 AM CDT Sexual Orientation Straight 03/18/2018 3: 01 AM PILOT TEACHER Last Filed Vital Signs Vital Sign Reading [...] 1956 Kidney Health Evaluation 1956 Pneumococcal Vaccine: 50+ Years (1 of 2 - PCV) 1962 Diabetes: Retinopathy Eye Exam 1974 Hepatitis C 1974 Mammogram Screening 1996 Zoster Vaccines (1 of 2) 2006 RSV Immunization or 60+ Years (1 - Risk 60-74 years 1-dose series) 2016 Annual Medicare Wellness Visit 2021 COVID-19 Vaccine (2 - season) 2023 06/29/2020 Hemoglobin A1C 04/14/2024 10/14/2023, 04/05/2023, 12/25/2022, Additional history exists Lipid Panel 10/13/2024 [...] 8.0(H) <5.7 % 10/14/2023 5:50 AM CDT [facility] Comment: ADA GUIDELINES 2010 5.7 TO 6.4% INCREASED RISK OF DIABETES > OR = 6.5% CONSISTENT WITH DIABETES ESTIMATED AVG GLUCOSE 183 mg/dL 10/14/2023 5:50 AM CDT [facility] 10/14/2023 3:40 AM CDT us Peggy Bland MD LABORATORY Final Result [facility] [address] [place] [address], [place] [phone] * LIPID PANEL (10/14/2023 3:40 AM CDT) CHOLESTEROL 164 <200 MG/DL 10/14/2023 4:31 AM CDT [facility] TRIGLYCERIDES 114 <150 MG/DL 10/14/2023 4:31 AM CDT [facility] HDL 46 >40.0 MG/DL 10/14/2023 4:31 AM CDT [facility] LDL (CALCULATED) 95 <100 MG/DL 10/14/19 4:31 AM CDT [facility] NON HDL CHOLESTEROL 118 <130 MG/DL 10/13 4:31 AM T [facility] CHOL/HDL RATIO 3.6 0.0 - 4.5 10/14/2023 4:31 AM T [facility] VLDL CALCULATION 23 5 - 55 MG/DL 10/14/2023 4:31 AM CDT [facility] LIPID INTERPRETATION 10/14/2023 4:31 AM CDT [facility] Comment: NIH CONCENSUS REPORT RECOMMENDATIONS: ADULT CHILD LOW RISK: CHOLESTEROL <200 <170 TRIGLYCERIDE <150 --- HDL >=60 --- LDL <100 <110 BORDERLINE: CHOLESTEROL 200-239 170-199 TRIGLYCERIDE 150-199 --- HDL 40-59 --- LDL 100-159 110-129 HIGH RISK: CHOLESTEROL >=240 >=200 TRIGLYCERIDE >=200 --- HDL <40 --- LDL >=160 >=130 10/14/2023 3:40 AM CDT Peggy Bland MD LABORATORY Final Result [facility] [address] [place] [address], [place] [phone] from Last 3 Months or Most Recently Relevant to Health Maintenance Insurance [facility] MEDICAID MEDICAID [facility] Advance Directives * Full Code (Latest [...] 2:42 AM 03/18/2018 4:50 PM Care Teams Edge Stripper Relationship Specialty Start Date End Date Justen Gale MD [address] [address] PCP - General FAMILY PRACTICE 08/20/17 Meena Bansal MD [address] [facility] [address] [address] [place] Pipe Organ Mechanic Apprentice CARDIOVASCULAR DISEASE 04/24/16
--- OUTSIDE RECORDS SUMMARY | 2024-08-05 17:01 | XMS_ITS | Encounter Summary ---
Author Organization [facility] Address [address] [place] [address] Phone Care Team Providers Care Stitcher Special Machine Name Role Phone Justen Gale MD Primary Care Provider [phone] David Roberts APRN, SPECIAL PROCEDURES NURSE Unavailable [phone] Annel Rod MD Unavailable Reason for Visit * Reason Onset Date Comments Muscle Pain 08/05/2024 Follow-up 08/05/2024 Encounter Details Date Type Department Care Team (Late st Contact Info) Description 08/05/2024 Nurse Triage [facility] [address] [place] [address] Justen Gale MD #[address] [address] Muscle Pain; Follow-up Social History Tobacco Use Types Packs/Day [...] encounter Miscellaneous Notes * Telephone Encounter - Patrizia Bowens RN - 08/05/2024 2:08 PM CDT Patient calling to make follow up appointment for ED visits. Continues to have severe pain that is not releived by current pain management plan. Advised per triage note below to return to ED. All Patient Appointments Date & Time Provider Department Dept Phone 08/12/2024 11:30 AM Angelito Alegria [facility] - Family Medicine - [place] [phone] Patient voices understanding and is agreeable.Assistive services verified. * Telephone Encounter - Johanna Almonte RN - 08/05/2024 12:58 AM CDT SITUATION: Pain BACKGROUND: Patient contacting PCP office. Patient calling after hours reporting she was seen in the PCP office (08/01/24) for body aches and thought to have polymyalgia rheumatica. She went to the ED 08/03/24 as she was in so much pain and shereports she was treated very poorly and nothing was done for her. She is calling this morning reporting her pain is unbearable and nothing is helping it. She is crying in pain. Has not taken her steroids prescribed by her PCP yet as she is diabetic and her pharmacy is out of her sensors until 08/06/24, to check her blood sugars, so she did not want to take steroids when she cannot check her blood sugars since the steroids will likely cause the sugars to run high. Also reports that she has pneumonia currently and is allergic to her antibiotics which she reports she told the ED provider on 08/03/24 who she reports told her he could not help with that and to callher PCP. Per chart review, patient seen in ED for pain on 08/03/24. ASSESSMENT: Symptom Description / Location: Pain has been ongoing for the last few weeks , began gradually and progressively got worse Pain is unbearable and constant Pain is muscular and all over her body Some areas are more painful than others. Right now it is worse in the shoulders and arms but other times it is worse in her hips Patient crying in pain Pain: Severe; unbearable, constant, all over body aches Fever: Denies fever. Treatment / Response: Takes Hydrocodone 10-325 mg one tablet every 6 hours as needed and taking ES Tylenol, two tablets, as needed; nothing is helping with worsening. Patient states she cannot take NSAIDS. RECOMMENDATION: Caller agreeable to disposition: See HCP Within 4 Hours. Advised to go to ED in next 4 hoursCare advice provided per triage guideline. Caller verbalized [...] any normal activities) AND [2] not improved 2 hours after pain medicine Protocols used: Muscle Aches and Body Pain-A-AH documented in this encounter Plan of Treatment Upcoming Encounters Date Type Department Care Team (Late st Contact Info) Description 08/12/2024 11:30 AM CDT Office Visit [facility] - Family Medicine - [place] #2 [place] [address] Angelito Alegria APRN, SPECIAL PROCEDURES NURSE #[address] [place] [address] 09/18/2024 2:45 PM CDT Office Visit [facility] - Endocrinology - [place] [address] [place] [address] Annel Rod MD #[address] [address] documented as of this encounter Visit Diagnoses Not on filedocumented in this encounter Additional Health Concerns Assessment Noted Time PHQ-9 Depression Total Score: 0 08/02/19 25 1:09 PM CDT documented as of this encounter Care Teams Stitcher Special Machine Relationship Specialty Start Date End Date Justen Gale MD [address] [address] PCP - General Family Medicine 10/17/17 David Roberts APRN, SPECIAL PROCEDURES NURSE #2 [place] [address] Nurse Practitioner Advanced Practice Nurse 01/31/22 Annel Rod MD #[address] [address] Consulting Physician Endocrinology 07/01/22 documented as of this encounter
--- OUTSIDE RECORDS SUMMARY | 2024-08-05 17:01 | XMS_ITS | Encounter Summary ---
Author Organization [facility] Address [address] [place] [address] Phone Care Team Providers Care Distribution Operation Supervisor Name Role Phone Justen Gale MD Primary Care Provider [phone] David Roberts APRN, CUSTOMER CARE VOICE CONSULTANT Unavailable [phone] Annel Rod MD Unavailable Reason for Visit * Reason Onset Date Comments Medication Refill 08/05/2024 Encounter Details Date Type Department Care Team (Late st Contact Info) Description 08/05/2024 MyChart RX Renewal [facility] - [place] #2 [place] [address] Annel Rod MD #[address] [address] Medication Renewal Reviewed Social History [...] Telephone Encounter - Annel Rod MD - 08/05/2024 4:26 PM CDT Rx sent documented in this encounter Plan of Treatment Upcoming Encounters Date Type Department Care Team (Late st Contact Info) Description 08/12/2024 11:30 AM CDT Office Visit [facility] - Family Medicine [facility] #2 [place] [address] Angelito Alegria APRN, CUSTOMER CARE VOICE CONSULTANT #[address] [address] 09/18/2024 2:45 PM CDT Office Visit [facility] - Endocrinology - [place] #2 [place] [address] Annel Rod MD #[address] [address] documented as of this encounter Visit Diagnoses Not on filedocumented in this encounter Additional Health Concerns Assessment Noted Time PHQ-9 Depression Total Score: 0 08/02/19 25 1:09 PM CDT documented as of this encounter Care Teams Distribution Operation Supervisor Relationship Specialty Start Date End Date Justen Gale MD #[address] [address] PCP - General Family Medicine 10/17/17 David Roberts APRN, CUSTOMER CARE VOICE CONSULTANT #2 [place] [address] Nurse Practitioner Advanced Practice Nurse 01/31/22 Annel Rod MD #[address] [address] Consulting Physician Endocrinology 07/01/22 documented as of this encounter
--- OUTSIDE RECORDS SUMMARY | 2024-08-05 17:01 | XMS_ITS | Encounter Summary ---
Author Organization [facility] Address [address] [place] [address] Phone Care Team Providers Care Maltster Name Role Phone Justen Gale MD Primary Care Provider [phone] David Roberts APRN, SENIOR PRICING ANALYST Unavailable [phone] Annel Rod MD Unavailable Reason for Visit * Reason Onset Date Comments Medication Refill 08/06/2020 Encounter Details Date Type Department Care Team (Late st Contact Info) Description 08/06/2020 Refill [facility] #2 [facility] [place] [address] Justen Gale MD #[address] [address] Medication Refill Social History Tobacco Use Types Packs/Day Years Used Date Smoking Tobacco: Never Smokeless Tobacco: Never Alcohol Use Standard Drinks/Week Comments No 0 (1 standard drink = 0.6 oz pur e alcohol) PHQ-2 Answer Date Recorded Total Score - Questions 1-9 0 /12/2020 Sexually Active Control Partners Comments Never Comments [...] Outpatient Visits 2 weeks ago [facility] APN, SENIOR PRICING ANALYST 2 months ago Increased urinary frequency [facility] Pili Mueller APN, SENIOR PRICING ANALYST 5 months ago Urinary frequency [facility] Pili Mueller APN, SENIOR PRICING ANALYST 8 months ago Type 2 diabetes mellitus with diabetic polyneuropathy, with long- term current use of insulin (HCC) [facility] Pili Mueller APN, SENIOR PRICING ANALYST 9 months ago Nausea [facility] Justen Urbano MD Upcoming Appointments Future Appointments In 6 days Pili Elkins APN, SENIOR PRICING ANALYST [facility] TRACK SUBWAY REPAIR SUPERVISOR - Recent and Past Visits Recent Visits Date Type Provider Dept 07/20/20 Office Visit Pili Elkins APN, SENIOR PRICING ANALYST [facility] [place] 06/05/20 Office Visit Pili Elkins APN, NETTA [facility] [place] 02/17/20 Office Visit Pili Elkins APN, NETTA [facility] [place] 12/03/19 Office Visit Pili Elkins APN, NETTA [facility] [place] 11/05/19 Telemedicine Justen Gale MD [facility] 07/25/19 Telemedicine [facility] recent visits within past 460 days with a meds authorizing provider and meeting all other requirements Future Appointments Date Type Provider Dept 08/12/20 Appointment Pili Elkins APN, CNP [facility] [place] Showing future appointments within next [...] Description 08/12/2024 11:30 AM CDT Office Visit [facility] Medical [facility] - Family Medicine - [place] #2 [place] [address] Angelito Alegria APRN, CNP #[address] [address] 09/18/2024 2:45 PM CDT Office Visit [facility] - Endocrinology - [place] #2 [place] [address] Annel Rod MD #2 [facility] [address] [place] [address] documented as of this encounter Visit Diagnoses Not on filedocumented in this encounter Additional Health Concerns Infection Onset Date Last Indicated Resolved Time COVID - 19 08/01/2024 08/01/2024 08/01/2024 3:20 PM CDT Assessment Noted Time PHQ-9 Depression Total Score: 0 07/21/19 21 3:00 PM CDT documented as of this encounter Care Teams Maltster Relationship Specialty Start Date End Date Justen Glae MD #2 [facility] [address] [place] [address] PCP - General Family Medicine 10/17/17 David Roberts APRN, SENIOR PRICING ANALYST #2 [place] [address] Nurse Practitioner Advanced Practice Nurse 01/31/22 Annel Rod MD #[address] [address] Consulting Physician Endocrinology 07/01/22 documented as of this encounter
--- OUTSIDE RECORDS SUMMARY | 2024-08-05 17:01 | XMS_ITS | Encounter Summary ---
Author Organization [facility] Address [address] [place] [address] Phone Care Team Providers Care Systems Architecture Analyst Name Role Phone Justen Gale MD Primary Care Provider [phone] David Roberts APRN, EXAMINER RATING CLERK Unavailable [phone] Annel Rod MD Unavailable Reason for Visit * Reason Comments Medication Refill Encounter Details Date Type Department Care Team (Late st Contact Info) Description 03/02/2023 Refill [facility] [place] #2 [place] [address] Justen Gale MD #[address] [address] Medication Refill Social History Tobacco Use Types [...] Tamika Villarreal RN - 03/02/2023 8:51 AM BONE WORKER Medication failed the protocol, provider to review [...] Dept 01/17/23 Office Visit Catrina Quiñonez MD [facility] 09/16/22 Office Visit Pili Elkins APRN, CNP [facility] [place] 07/05/22 Office Visit Pili Elkins APRN, CNP [facility] [place] 05/02/22 Office Visit Justen Gale MD [facility] 03/03/22 Office Visit Pili Elkins APRN, CNP [facility] Showing recent visits within past 365 days and meeting all other requirements Future Appointments No visits were found meeting these conditions. Showing future appointments within next 90 days and meeting all other requirements WORKER documented in this encounter Plan of Treatment Upcoming Encounters Date Type Department Care Team (Late st Contact Info) Description 08/12/2024 11:30 AM CDT Office Visit [facility] - Family Medicine - [place] #[address] [place] [address] Angelito Alegria APRN, EXAMINER RATING CLERK #[address] [address] 09/18/2024 2:45 PM CDT [facility] - Endocrinology - [place] #[address] [place] [address] Annel Rod MD [address] [address] documented as of this encounter Visit Diagnoses Not on filedocumented in this encounter Additional Health Concerns Infection Onset Date Last Indicated Resolved Time COVID - 19 08/01/2024 08/01/2024 08/01/2024 3:20 PM CDT Assessment Noted Time PHQ-9 Depression Total Score: 8 01/18/20 23 2:24 PM CDT documented as of this encounter Care Teams Systems Architecture Analyst Relationship Specialty Start Date End Date Justen Gale MD #[address] [address] PCP - General Family Medicine 10/17/17 David Roberts, SPECIAL NEEDS CAREGIVER, EXAMINER RATING CLERK #2 [place] [address] Nurse Practitioner Advanced Practice Nurse 01/31/22 Annel Rod MD #[address] [address] Consulting Physician Endocrinology 07/01/22 documented as of this encounter
--- OUTSIDE RECORDS SUMMARY | 2024-08-05 17:01 | XMS_ITS | Encounter Summary ---
Author Organization [facility] Address [address] [place] [address] Phone Care Team Providers Care Mascara Molder Name Role Phone Justen Gale MD Primary Care Provider [phone] David Roberts APRN, KICK BOXER Unavailable [phone] Annel Rod MD Unavailable Encounter Details Date Type Department Care Team (Late st Contact Info) Description 06/05/2020 [facility] [address] [place] [address] Pili Elkins APRN, KICK BOXER #[address] [address] Frequency of micturition Social History [...] COVID-19? No / Unsure 2020 11:37 AM DEBEADER documented as of this encounter Plan of Treatment Upcoming Encounters Date Type Department Care Team (Late st Contact Info) Description 08/12/2024 11:30 AM CDT Office Visit [facility] Medical [facility] - Family Medicine - [place] #2 [place] [address] Angelito Alegria APRN, KICK BOXER #2 [facility] [address] [place] [address] 09/18/2024 2:45 PM CDT Office Visit [facility] - Endocrinology - [place] #2 [place] [address] Annel Rod MD #2 [facility] [address] [place] [address] documented as of this encounter Procedures Procedure Name Priority Date/Time Associated Diagnosis Comments URINALYSIS REFLEX IF INDICATED BY ABNORMAL RESULTS Routine 06/05/2020 4:45 PM DEBEADER Frequency of micturition documented in this encounter Results * (ABNORMAL) URINALYSIS REFLEX IF INDICATED BY ABNORMAL RESULTS (06/05/2020 4:45 PM DEBEADER) SPECIFIC GRAVITY 1.020 1.003 - 1.030 06/05/2020 5:19 PM DEBEADER [facility] URINE PH 5.0 5.0 - 9.0 06/05/2020 5:19 PM DEBEADER [facility] WBC ESTERASE Negative Negative 06/05/2020 5:19 PM DEBEADER [facility] NITRITE Negative Negative 06/05/2020 5:19 PM DEBEADER [facility] PROTEIN, RANDOM URINE Negative Negative 06/05/2020 5:19 PM DEBEADER [facility] URINE GLUCOSE, QUAL Negative Negative 06/05/2020 5:19 PM DEBEADER [facility] URINE KETONES Negative Negative 06/05/2020 5:19 PM DEBEADER [facility] UROBILINOGEN Normal Normal mg/dL 06/05/2020 5:19 PM DEBEADER [facility] URINE BILIRUBIN Negative Negative 5:19 PM DEBEADER [facility] URINE BLOOD 25 /uL(A) Negative leandro/ul 06/05/2020 5:19 PM DEBEADER [facility] URINALYSIS COLOR Yellow 06/05/19 5:19 PM DEBEADER [facility] URINALYSIS CLARITY Clear 06/05/2020 5:19 PM DEBEADER [facility] WBC (Urine) 0-5 Negative, 0-5 /hpf 06/05/2020 5:19 PM DEBEADER [facility] URINE RBC'S 3-5(A) Negative, 0-2 /hpf 06/05/2020 5:19 PM DEBEADER [facility] EPITHELIAL CELLS Small amount /lpf 2020 5:19 PM DEBEADER [facility] BACTERIA, URINE Few(A) Negative /hpf 06/05/2020 5:19 PM DEBEADER [facility] Urine URINE SPECIMEN / Unknown Non-Phlebotomy Collection / Unknown 06/05/2020 4:45 PM DEBEADER 06/05/2020 5:00 PM DEBEADER us Pili Elkins MC KAY MACHINE OPERATOR, KICK BOXER URINE ORDERABLES Fin al Result [facility] #1 [place] [address] documented in this encounter Visit Diagnoses Diagnosis Frequency of micturition Urinary frequency documented in this encounter Additional Health Concerns Infection Onset Date Last Indicated Resolved Time COVID - 19 08/01/2024 08/01/2024 08/01/2024 3:20 PM CDT Assessment Noted Time PHQ-9 Depression Total Score: 0 09/08/19 19 1:00 PM CDT documented as of this encounter Care Teams Mascara Molder Relationship Specialty Start Date End Date Justen Gale MD #2 [facility] [address] [place] [address] PCP - General Family Medicine 10/17/17 David Roberts, MC KAY MACHINE OPERATOR, KICK BOXER #2 [place] [address] Nurse Practitioner Advanced Practice Nurse 01/31/22 Annel Rod MD #2 [facility] [address] [place] [address] Consulting Physician Endocrinology 07/01/22 documented as of this encounter
--- OUTSIDE RECORDS SUMMARY | 2024-08-05 17:01 | XMS_ITS | Encounter Summary ---
Author Organization [facility] Address [address] [place] [address] Phone Care Team Providers Care Radiology Ct Technologist Name Role Phone Justen Gale MD Primary Care Provider [phone] David Roberts APRN, SENIOR ENERGY CONSULTANT Unavailable [phone] Annel Rod MD Unavailable Reason for Visit * Reason Comments Medication Refill Encounter Details Date Type Department Care Team (Late st Contact Info) Description 03/05/2023 Refill [facility] #2 [place] [address] Pili Elkins APRN, SENIOR ENERGY CONSULTANT #[address] [address] Medication Refill Social History Tobacco [...] discontinued on 10/19/2022 by Justen Gale MD SCRIPTIONIST documented in this encounter Plan of Treatment Upcoming Encounters Date Type Department Care Team (Late st Contact Info) Description 08/12/2024 11:30 AM CDT Office Visit [facility] - Family Medicine - [place] #2 [place] [address] Angelito Alegria APRN, ENTTA #[address] [address] 09/18/2024 2:45 PM CDT Office Visit [facility] - Endocrinology - [place] #2 [place] [address] Annel Rod MD #[address] [address] documented as of this encounter Visit Diagnoses Diagnosis Essential hypertension Unspecified essential hypertension documented in this encounter Additional Health Concerns Infection Onset Date Last Indicated Resolved Time COVID - 19 08/01/2024 08/01/2024 08/01/2024 3:20 PM CDT Assessment Noted Time PHQ-9 Depression Total Score: 8 01/18/20 23 2:24 PM CDT documented as of this encounter Care Teams Radiology Ct Technologist Relationship Specialty Start Date End Date Justen Gale MD #2 [facility] [address] [place] [address] PCP - General Family Medicine 10/17/17 David Roberts APRN, NETTA #2 [place] [address] Nurse Practitioner Advanced Practice Nurse 01/31/22 Annel Rod MD #2 [facility] [address] [place] [address] Consulting Physician Endocrinology 07/01/22 documented as of this encounter
--- OUTSIDE RECORDS SUMMARY | 2024-08-05 17:01 | XMS_ITS | CONTINUITY OF CARE DOCUMENT ---
Author Name ayesha, ayesha Address Unknown Organization [facility] Address [address] [place] [address] Phone [phone] Care Team Providers Care Front End Wheel Loader Operator Name Role Phone Yamilet DURÁN, Maico Unavailable ALANIS DURÁN, BRIDGETT Unavailable [phone] ALLISON DURÁN, CLARISSE Unavailable PROBLEMS Condition Status Date Provider Notes Shortness of breath active Ivory Rodriguez Palpitations active Radha Seals INSURANCE PROVIDERS Payer name Policy type / Coverage type Keller red republican ID UHC MEDICARE COMPLETE HMO Other [id number] [employer] [facility] Medicaid 2 [id number] HISTORY OF PROCEDURES Procedure Date Procedure Name Provider Procedure Notes S tatus Stress EKG Carmine Silverio MD complet ed Regadenoson, 4 units Sergey Saldana MD completed Cardiolite, 2 units Sergey Saldana MD completed SPECT Images Carmine Silverio MD compl eted Holter, 24 or 48 Maico Woodard MD co mpleted
--- OUTSIDE RECORDS SUMMARY | 2024-08-05 17:01 | XMS_ITS | Encounter Summary ---
Author Organization [facility] Address [address] [place] [address] Phone Care Team Providers Care Flour Broker Name Role Phone Justen Gale MD Primary Care Provider [phone] David Roberts APRN, CERTIFIED DENTAL ASSISTANT Unavailable [phone] Annel Rod MD Unavailable Reason for Visit * Reason Comments Medication Refill Encounter Details Date Type Department Care Team (Late st Contact Info) Description 08/30/2022 Refill [facility] Family [facility] #2 [place] [address] Justen Gale MD #[address] [address] Medication Refill Social History Tobacco Use Types [...] 07/05/22 Office Visit Pili Elkins APRN, NETTA [facility] [place] 05/02/22 Office Visit Justen Gale MD [facility] [place] 03/03/22 Office Visit Pili Elkins APRN, NETTA [facility] [place] 01/03/22 Office Visit Dannielle Berg PAC [facility] [place] 12/07/21 Office Visit Pili Elkins APRN, NETTA [facility] [place] 11/09/21 Office Visit Pili Elkins APRN, NETTA [facility] [place] 10/08/21 Office Visit Angelito Alegria APRN, NETTA [facility] [place] 08/30/21 Office Visit [facility] Showing recent visits within past 365 days and meeting all other requirements Future Appointments No visits were found meeting these conditions. Showing future appointments within next 90 days and meeting all other requirements documented in this encounter Plan of Treatment Upcoming Encounters Date Type Department Care Team (Late st Contact Info) Description 08/12/2024 11:30 AM CDT [facility] Visit [facility] - Family Medicine [facility] #[address] [place] [address] Angelito Alegria APRN, CERTIFIED DENTAL ASSISTANT #[address] [address] 09/18/2024 2:45 PM CDT Office Visit [facility] Endocrinology - [place] #2 [place] [address] Annel Rod MD #[address] [address] documented as of this encounter Visit Diagnoses Not on filedocumented in this encounter Additional Health Concerns Infection Onset Date Last Indicated Resolved Time COVID - 19 08/01/2024 08/01/2024 08/01/2024 3:20 PM CDT Assessment Noted Time PHQ-9 Depression Total Score: 0 07/21/19 3:00 PM CDT documented as of this encounter Care Teams Flour Broker Relationship Specialty Start Date End Date Justen Gale MD #[address] [address] PCP - General Family Medicine 10/17/17 David Roberts APRN, CERTIFIED DENTAL ASSISTANT #2 [place] [address] Nurse Practitioner Advanced Practice Nurse 01/31/22 Annel Rod MD [address] [address] Consulting Physician Endocrinology 07/01/22 documented as of this encounter
--- OUTSIDE RECORDS SUMMARY | 2024-08-05 17:01 | XMS_ITS | Referral Summary ---
Author Organization [facility] Address [address] [place] [id number] Care Team Providers [employer] Sales Representative Name Role Phone Liu Jerez MD Unavailable Albert Corbin MD Unavailable [phone] Justen Gale MD Primary Care Provider Khris Arthur MD Unavailable [phone] Ko Melendez MD Unavailable John Paul Moyer MD Unavailable [phone] Annel Rod MD Unavailable Anali MARSHALL MD, Carlos M. Unavailable Encounters Date Type Department Care Team Description 07/01/2024 8:52 PM CDT - 07/01/2024 10:18 PM CDT Emergency [facility] Emergency Department [address] [place] [address] Myalgia (Primary Dx); Viral syndrome Discharge Disposition: Discharge to home or self care 05/30/2024 Orders Only [facility] [address] [facility] [address] [place] [address] Radha Mcgrath RN Lymphedema of left arm (Primary Dx); Malignant neoplasm of upper-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, unspecified estrogen receptor status (HCC); Malignant neoplasm of overlapping sites of left female breast, unspecified estrogen receptor status (HCC); Malignant neoplasm of female breast, unspecified estrogen receptor status, unspecified laterality, unspecified site of breast (HCC) 05/21/2024 9:12 PM CHALKER SOLES - 05/26/2024 6:45 PM CHALKER SOLES Hospital Encounter [address] [address] Jimmie Zavala MD Liss, MD Ra Parnell, MD Sebastian Claros, MD Carlos Left arm pain (Primary Dx); Left leg pain; Shortness of breath; Urinary tract infection without hematuria, site unspecified; Allergy to drug Discharge Disposition: Discharge to home or self care 05/24/2024 Telephone [facility] [address] [place] [address] Radha Warner RN 05/23/2024 8:10 AM CHALKER SOLES Ancillary Procedure [facility] IP [address] [facility] [address] [place] [address] 05/21/2024 12:58 PM CHALKER SOLES - 05/21/2024 11:59 PM CHALKER SOLES Hospital Encounter AMBULANCE BILLING [address] [place] [address] Discharge Disposition: Discharge to home or self care 05/21/2024 11:00 AM CHALKER SOLES - 05/21/2024 11:59 PM CHALKER SOLES Hospital Encounter [facility] [address] [place] [address] Floor 8 [place] [address] History of breast cancer; Axillary pain, left Discharge Disposition: Discharge to home or self care 05/16/2024 Telephone [facility] [address] [place] [address] 8 [place] [address] Jeanine Ba RMA 05/16/2024 Orders Only [facility] [address] [place] [address] 8 [place] [address] Radha Mcgrath RN History of breast cancer (Primary Dx); Axillary pain, left 05/16/2024 Orders Only [facility] [address] [place] [address] 8 [place] [address] Khris Arthur MD Swelling of left upper extremity (Primary Dx); Swelling of left lower extremity 05/14/2024 4:45 PM CHALKER SOLES Lab [facility] Collection [address] [place] [address] 5 [place] [address] Malignant neoplasm of upper-inner quadrant of left breast in female, estrogen receptor positive (HCC) 05/14/2024 4:36 PM CHALKER SOLES - 05/14/2024 11:59 PM CHALKER SOLES Hospital Encounter [facility] - Diagnostic Imaging [address] [place] [address] 8 [place] [address] Malignant neoplasm of upper-inner quadrant of left breast in female, estrogen receptor positive (HCC) Discharge Disposition: Discharge to home or self care 05/14/2024 4:00 PM CHALKER SOLES Lab [facility] Lab [address] [place] [address] 5 [place] [address] Malignant neoplasm of upper-inner quadrant of left breast in female, estrogen receptor positive (HCC) 05/14/2024 3:30 PM CHALKER SOLES Office Visit [facility] [address] [place] [address] 8 [place] [address] Khris Arthur MD Swelling of right lower [...] Taken at 2100 Active blood glucose diagnostic (Bonica.couch Ultra Test) strip 4 (four) times a [...] 05/22/2024 Assessment & Plan (05/26/2024 10:08 AM CHALKER SOLES): Presenting with urinary symptoms of right flank [...] 3 doses q48 hours -Previously followed with [facility] Urology, but lost to follow up when her Urologist left the practice, outpatient urology follow up placed - good pain control w/Dilaudid, continue prn Venous thromboembolism (VTE) 05/22/2024 Assessment & Plan (05/25/2024 7:52 AM CHALKER SOLES): Hx of breast cancer c/b DVT/bilateral Pes [...] 05/22/2024 Assessment & Plan (05/22/2024 1:14 PM CHALKER SOLES): -long-standing chronic back pain -CT L spine [...] 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) 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 10/17/2019 Thyroid [...] long-term current use of insulin ([facility] 10/23/2017 Assessment & Plan [...] 10/13/2017 Assessment & Plan (05/22/2024 12:29 PM CHALKER SOLES): -Hx stage II, ER positive, HER2 negative [...] 08/01/2017 Assessment & Plan (05/22/2024 12:33 PM CHALKER SOLES): -Hx LUL -Hospital provided CPAP ordered History of DVT (deep vein thrombosis) 08/01/2017 History of pulmonary embolism 08/01/2017 Generalized weakness 07/27/2017 Dyspnea 07/27/2017 Unintentional weight loss 07/27/2017 Acute cystitis without hematuria 07/27/2017 Nausea and vomiting 07/26/2017 Overview (07/28/2017): Added automatically from request for surgery [id number] Pulmonary embolism 08/09/2016 Assessment & Plan (10/23/2017 2:05 AM CDT): On Rivaroxaban Lymphedema of left upper extremity 08/09/2016 Assessment & Plan (05/25/2024 7:53 AM CHALKER SOLES): S/p L axillary lymph node dissection 2014, [...] syndrome Assessment & Plan (05/22/2024 11:18 AM CHALKER SOLES): -continue home Requip 5mg nightly Pain of lower extremity 03/12/2013 Overview (07/29/2016): Leg pain Essential hypertension Assessment & Plan (05/23/2024 10:42 AM CHALKER SOLES): -Chart history of HTN but not on meds -BP elevated on admission, likely some pain contributing -Monitor closely once pain under adequate control, discussed following up with PCP for this Chronic anticoagulation Restless leg syndrome 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 More than 4 times [...] in a assisted (including now)? No 08/15/2023 Housing Stability Vital [...] time in the past 12 m [facility] [place], were you homeless or living in a assisted (including now)? No 05/24/2024 Personal Safety Answer Date Recorded Have you ever been in or are you currently in a harmful physical or emotional relationship or is someone making you feel afraid or unsafe? Denies 07/01/2024 Comments No Sex and Gender Information Value Date Recorded Sex Assigned at Not on file Legal Sex Female 12:24 AM CHALKER SOLES Gender Identity Not on file Sexual Orientation [...] GLUCOSE DEVICE Routine 05/26/2024 4 :27 PM CHALKER SOLES POCT GLUCOSE DEVICE Routine 05/26/2024 1 1:38 AM CHALKER SOLES POCT GLUCOSE DEVICE Routine 05/26/2024 8 :12 AM CHALKER SOLES EGFR Routine 05/26/2024 12:05 AM CHALKER SOLES DIFFERENTIAL AUTO Routine 05/26/2024 12: 05 AM CHALKER SOLES PHOSPHORUS Routine 05/26/2024 12:05 AM CHALKER SOLES COMPREHENSIVE METABOLIC PANEL Routine 05/26/2024 12:05 AM CHALKER SOLES MAGNESIUM Routine 05/26/2024 12:05 AM CHALKER SOLES CBC WITH AUTO DIFFERENTIAL Routine 05/26/2024 12:05 AM CHALKER SOLES POCT GLUCOSE DEVICE Routine 05/25/2024 7 :44 PM CHALKER SOLES POCT GLUCOSE DEVICE Routine 05/25/2024 5 :24 PM CHALKER SOLES POCT GLUCOSE DEVICE Routine 05/25/2024 1 1:37 AM CHALKER SOLES POCT GLUCOSE DEVICE Routine 05/25/2024 7 :27 AM CHALKER SOLES EGFR Routine 05/25/2024 12:20 AM CHALKER SOLES DIFFERENTIAL AUTO Routine 05/25/2024 12: 20 AM CHALKER SOLES PHOSPHORUS Routine 05/25/2024 12:20 AM CHALKER SOLES COMPREHENSIVE METABOLIC PANEL Routine 05/25/2024 12:20 AM CHALKER SOLES MAGNESIUM Routine 05/25/2024 12:20 AM CHALKER SOLES CBC WITH AUTO DIFFERENTIAL Routine 05/25/2024 12:20 AM CHALKER SOLES POCT GLUCOSE DEVICE Routine 05/24/2024 8 :13 PM CHALKER SOLES POCT GLUCOSE DEVICE Routine 05/24/2024 5 :17 PM CHALKER SOLES POCT GLUCOSE DEVICE Routine 05/24/2024 1 2:49 PM CHALKER SOLES POCT GLUCOSE DEVICE Routine 05/24/2024 9 :22 AM CHALKER SOLES HERPES SIMPLEX VIRUS (HSV) PCR Routine 05/24/2024 8:47 AM CHALKER SOLES POCT GLUCOSE DEVICE Routine 05/24/2024 8 :22 AM CHALKER SOLES EGFR Routine 05/24/2024 12:29 AM CHALKER SOLES DIFFERENTIAL AUTO Routine 05/24/2024 12: 29 AM CHALKER SOLES PHOSPHORUS Routine 05/24/2024 12:29 AM CHALKER SOLES COMPREHENSIVE METABOLIC PANEL Routine 05/24/2024 12:29 AM CHALKER SOLES MAGNESIUM Routine 05/24/2024 12:29 AM CHALKER SOLES CBC WITH AUTO DIFFERENTIAL Routine 05/24/2024 12:29 AM CHALKER SOLES POCT GLUCOSE DEVICE Routine 05/23/2024 8 :16 PM CHALKER SOLES POCT GLUCOSE DEVICE Routine 05/23/2024 6 :14 PM CHALKER SOLES POCT GLUCOSE DEVICE Routine 05/23/2024 1 2:17 PM CHALKER SOLES US VEIN DUPLEX LOWER EXTREMITY BILATERAL COMPLETE IP Routine 05/23/2024 11:45 AM CHALKER SOLES POCT GLUCOSE DEVICE Routine 05/23/2024 8 :16 AM CHALKER SOLES DIFFERENTIAL AUTO Routine 05/23/2024 2:3 0 AM CHALKER SOLES CBC WITH AUTO DIFFERENTIAL Routine 05/23/2024 2:30 AM CHALKER SOLES EGFR Routine 05/23/2024 12:42 AM CHALKER SOLES LACTATE DEHYDROGENASE Routine 05/23/2024 12:42 AM CHALKER SOLES URIC ACID Routine 05/23/2024 12:42 AM CHALKER SOLES TYPE AND SCREEN Timed 05/23/2024 12:42 AM CHALKER SOLES PHOSPHORUS Routine 05/23/2024 12:42 AM CHALKER SOLES COMPREHENSIVE METABOLIC PANEL Routine 05/23/2024 12:42 AM CHALKER SOLES MAGNESIUM Routine 05/23/2024 12:42 AM CHALKER SOLES POCT GLUCOSE DEVICE Routine 05/22/2024 8 :56 PM CHALKER SOLES POCT GLUCOSE DEVICE Routine 05/22/2024 6 :09 PM CHALKER SOLES POCT GLUCOSE DEVICE Routine 05/22/2024 4 :[address] ABDOMEN PELVIS W CONTRAST ED 05/22/2024 2:32 PM CHALKER SOLES POCT GLUCOSE DEVICE Routine 05/22/2024 1 2:58 PM CHALKER SOLES POCT GLUCOSE DEVICE Routine 05/22/2024 9 :29 AM CHALKER SOLES POCT GLUCOSE DEVICE Routine 05/22/2024 6 :[address] CHEST PE W CONTRAST ED 05/22/2024 1:31 AM CHALKER SOLES D-DIMER, QUANTITATIVE Routine 05/22/2024 12:24 AM CHALKER SOLES URINALYSIS, MICROSCOPIC ONLY Routine 05/21/2024 11:09 PM CHALKER SOLES TROPONIN I HIGH-SENSITIVITY 2-HOUR Timed 05/21/2024 11:09 PM CHALKER SOLES URINE CULTURE Routine 05/21/2024 11:09 PM CHALKER SOLES RESPIRATORY PATHOGEN PANEL Routine 05/21/2024 11:09 PM CHALKER SOLES URINALYSIS AND REFLEX TO MICROSCOPIC AND CULTURE Routine 05/21/2024 11:09 PM CHALKER SOLES POCT GLUCOSE DEVICE Routine 05/21/2024 8 :55 PM CHALKER SOLES TROPONIN I HIGH-SENSITIVITY 4-HOUR Timed 05/21/2024 7:26 PM CHALKER SOLES LIPID PANEL STAT 05/21/2024 4:20 PM CHALKER SOLES HEMOGLOBIN A1C STAT 05/21/2024 4:20 PM CHALKER SOLES EGFR STAT 05/21/2024 4:20 PM CHALKER SOLES DIFFERENTIAL AUTO STAT 05/21/2024 4:2 0 PM CHALKER SOLES TROPONIN I HIGH-SENSITIVITY SERIES (BASELINE, 2HR, 4HR, 6HR) STAT 05/21/2024 4:20 PM CHALKER SOLES COMPREHENSIVE METABOLIC PANEL STAT 05/21/2024 4:20 PM CHALKER SOLES CBC WITH AUTO DIFFERENTIAL STAT 05/21/2024 4:20 PM CHALKER SOLES XR CHEST PA LATERAL 2 VIEWS ED 05/21/2024 2:23 PM CHALKER SOLES POCT GLUCOSE DEVICE Routine 05/21/2024 1 :39 PM CHALKER SOLES ECG 12-LEAD STAT 05/21/2024 1:36 PM CHALKER SOLES US AXILLARY LEFT Schedule Routine, Read Routine (OP Routine) 05/21/2024 12:13 PM CHALKER SOLES History of breast cancer Axillary pain, left URINALYSIS, MICROSCOPIC ONLY Routine 05/14/2024 4:50 PM CHALKER SOLES Malignant neoplasm of upper-inner quadrant of left breast in female, estrogen receptor positive (HCC) URINALYSIS AND REFLEX TO MICROSCOPIC AND CULTURE Routine 05/14/2024 4:50 PM CHALKER SOLES Malignant neoplasm of upper-inner quadrant of left breast in female, estrogen receptor positive (HCC) XR RIBS LEFT 2 VIEWS Schedule Routine, Read Routine (OP Routine) 05/14/2024 4:44 PM CHALKER SOLES Malignant neoplasm of upper-inner quadrant of left [...] breath since last night. Took tylenol just [employer]. TECHNIQUE: CT scan of the chest [...] Juve Gallegos M.D. AR: VALERY Report ID: [id number] Reading Location: [id number] Procedure Note Juve Gallegos MD - 07/01/2024 [...] Juve Gallegos M.D. AR: VALERY Report ID: [id number] Reading Location: [place] [address] PROCEDURES Final Resu lt * (ABNORMAL) Troponin T high-sensitivity 2-hour (07/01/2024 3:43 PM CDT) Trop T hs 27(H) <=14 ng/L Comment: Interpretive Data For further hscTnT resources including the diagnostic algorithm and an aid in interpretation, copy and paste this link: https://nrl.testcatalog.org/show/hsTrop Current Interpretive Data last revised 2020. Testing performed by: [address] [address] Trop T hs delta 0 ng/L MARY JANE PHAM Comment:Testing performed by : [address] [address] Trop T hs interp Insignificant MARY JANE PHAM Comment:Testing performed by : [address] [address] Blood 07/01/2024 3:43 PM CDT 07/01/2024 3:52 PM CDT us Ilana Stevens MD LAB BLOOD ORDERABLES F inal Result MARY JANE [address] [facility] Department [place] [address] * (ABNORMAL) Urinalysis reflex to microscopic and culture Urine (07/01/2024 3:43 PM CDT) Color, ur Yellow Yellow Comment:Testing performed by : [address] [address] Clarity, ur Clear Clear MARY JANE Comment:Testing performed by : [address] [address] Specific gravity, ur 1.020 1.003 - 1.030 MARY JANE Comment:Testing performed by : [address] [address] pH, urine 6.0 MARY JANE Comment: Interpretive Data U rine pH is affected by diet, medications, systemic acid-base disturbances, and renal tubular function. pH may affect urinary stone formation. For example, urine pH below 6.0 may help reduce the tendency for calcium phosphate stones and pH greater than 6.0 may reduce the tendency for uric acid stone formation. Source: [facility]ideology Current Interpretive Data was last revised on 2017 Testing performed by: [address] [address] Protein, ur ql Negative Negative MARY JANE Comment:Testing performed by : [address] [address] Glucose, ur ql 2+(A) Negative MARY JANE Comment:Testing performed by : [address] [address] Ketones, ur Negative Negative MARY JANE Comment:Testing performed by : [address] [address] Bilirubin, ur Negative Negative MARY JANE Comment:Testing performed by : [address] [address] Blood, ur Trace(A) Negative MARY JANE Comment:Testing performed by : [place] [address], [place]., [address] Urobilinogen, ur <2.0 <2.0 mg/dL MARY JANE PHAM Comment:Testing performed by : [address], [place]., [address] Nitrite, ur Negative Negative MARY JANE PHAM Comment:Testing performed by : [address], [place]., [address] Leukocyte esterase, ur Negative Negative MARY JANE PHAM Comment:Testing performed by : [facility] [address] [place] [address], [place]., [address] UA reflex comment Reflex to microscopic UA will be performed. MARY JANE PHAM Comment:Testing performed by : [address], [place]., [address] Urine 07/01/2024 3:43 PM CDT 07/01/2024 3:52 PM CDT Ilana Stevens MD LAB MICROBIOLOGY - GEN ERAL ORDERABLES Final Result MARY JANE PHAM [address] [facility] Department [place] [address] * (ABNORMAL) Urinalysis, microscopic only (07/01/2024 3:43 PM CDT) WBC, ur 0-5 0 - 5 /HPF Comment:Testing performed by : [facility] [address] [place] [address]., [address] RBC, ur 3-5(A) 0 - 2 /HPF MARY JANE PHAM Comment:Testing performed by : [facility] [address] [place] [address], [place]., [address] Epithelial cells, squamous, ur 1-5 0 - 5 /HPF MARY JANE PHAM Comment:Testing performed by : [address], [place]., [address] Mucous, ur Present(A) MARY JANE PHAM Comment:Testing performed by : [address], [place]., [address] Culture Reflex Comment Reflex conditions for urine culture (WBC >10) not met. MARY JANE PHAM Comment:Testing performed by : [facility] [address] [place]., [address] Urine 07/01/2024 3:43 PM CDT 07/01/2024 3:52 PM CDT us Ilana Stevens MD LAB URINE ORDERABLES F inal Result MARY JANE [address] [facility] Department [place] [address] * XR Chest 1 Vw [...] Romelia Bowen D.O. PS: PS Report ID: [id number] Reading Location: [id number] Procedure Note Romelia Bowen, DO - 07/01/2024 [...] Romelia Bowen D.O. PS: PS Report ID: [id number] Reading Location: [place] [address] us Ilana Stevens MD IMG XR PROCEDURES Deann l Result * ECG 12 lead (07/01/2024 2:05 PM CDT) Ventricular Rate EKG/Min 76 BPM [facility] Atrial Rate 76 BPM [facility] FL-Interval (MSEC) 130 ms [facility] QRS-Interval (MSEC) 86 ms [facility] QT-Interval (MSEC) 386 ms [facility] QTc 434 ms [facility] P [place] 26 degrees [facility] R [place] 22 degrees [facility] T [place] 46 degrees [facility] Diagnosis Normal sinus rhythm Normal ECG When compared with ECG of 28-DEC-2023 12:49, No significant change was found Confirmed by DUTCH BURGOS M.D. ([id number]) on 07/01/2024 10:10:22 PM [facility] 07/01/2024 2:05 PM CDT 07/01/2024 10:10 PM CDT us Ilana Stevens MD ECG ORDERABLES Final Result [facility] * (ABNORMAL) Troponin T high-sensitivity series (baseline, 2hr, 4hr, 6hr) (07/01/2024 2:02 PM CDT) Trop T hs 27(H) <=14 ng/L Comment: Interpretive Data For further hscTnT resources including the diagnostic algorithm and an aid in interpretation, copy and paste this link: https://nrl.testcatalog.org/show/hsTrop Current Interpretive Data last revised 2020. Testing performed by: [address] [address] Blood 07/01/2024 2:02 PM CDT 07/01/2024 2:12 PM CDT us Ilana Stevens MD LAB BLOOD ORDERABLES F inal Result [facility] [address] [facility] Department [place] [address] * Influenza A/B, RSV, and COVID-19 PCR Nasopharyngeal (07/01/2024 2:02 PM CDT) COVID-19 RNA Negative Negative Comment:Testing performed by : [address] [address] Influenza A RNA Negative Negative [facility] Comment:Testing performed by : [address] [address] Influenza B RNA Negative Negative [facility] Comment:Testing performed by : [address] [address] RSV RNA Negative Negative [facility] Comment: Interpretive data: Testing performed by [facility]. This test is performed using the [employer] Xpert Xpress CoV-2/Flu/RSV plus assay. This is a multiplex, real-time reverse transcriptase PCR assay intended for the qualitative detection of nucleic acid from SARS-CoV-2, influenza A, influenza B, and respiratory syncytial virus. This assay has been cleared by the [place] Food and Drug administration. The performance characteristics have been verified by the [facility]. Results must be considered in the clinical context, and a negative result does not rule out infection. Interpretive Data last revised 2023 Testing performed by: [address] [address] Nasopharyngeal 07/01/2024 2: 02 PM CDT 07/01/2024 2:12 PM CDT Narrative MARY JANE - 07/01/2024 2:52 PM CDT Is the Patient experiencing symptoms consistent with COVID?->Yes Ilana Stevens MD LAB MICROBIOLOGY - GEN ERAL ORDERABLES Final Result MARY JANE [facility] [place] [address] * eGFR (07/01/2024 2:02 PM CDT) eGFR [...] last reviewed 2021. Testing performed by: [facility], [address] [place] [address]., [address] Blood 07/01/2024 2:02 PM CDT 07/01/2024 2:12 PM CDT Ilana Stevens MD LAB BLOOD ORDERABLES F inal Result MARY JANE [address] [facility] [place] [address] * Differential, auto (07/01/2024 2:02 PM CDT) [facility] Neutrophil abs 5.3 1.5 - 6.5 K/cumm Comment:Testing performed by : [address] [address] Imm gran abs 0.0 0.0 - 0.1 K/cumm [facility] Comment:Testing performed by : [address] [address] Lymphocyte abs 2.6 0.8 - 3.3 K/cumm [facility] Comment:Testing performed by : [address] [address] Monocyte abs 0.8 0.2 - 0.8 K/cumm [facility] Comment:Testing performed by : [address] [address] Eosinophil abs 0.2 0.0 - 0.5 K/cumm [facility] Comment:Testing performed by : [address] [address] Basophil abs 0.0 0.0 - 0.1 K/cumm [facility] Comment:Testing performed by : [address] [address] Neutrophil pct 59.1 % [facility] Comment: Interpretive Data Percent cell count reference ranges are not reported, since discordance with absolute values may lead to misinterpretation of CBC data. Current Interpretive Data was last revised on 2017. Testing performed by: [address] [address] Imm gran pct 0.2 % [facility] Comment: Interpretive Data Percent cell count reference ranges are not reported, since discordance with absolute values may lead to misinterpretation of CBC data. Current Interpretive Data was last revised on 2017. Testing performed by: [address] [address] Lymphocyte pct 29.0 % [facility] Comment: Interpretive Data Percent cell count reference ranges are not reported, since discordance with absolute values may lead to misinterpretation of CBC data. Current Interpretive Data was last revised on 2017. Testing performed by: [address] [address] Monocyte pct 9.3 % [facility] Comment: Interpretive Data Percent cell count reference ranges are not reported, since discordance with absolute values may lead to misinterpretation of CBC data. Current Interpretive Data was last revised on 2017. Testing performed by: [address] [address] Eosinophil pct 2.2 % [facility] Comment: Interpretive Data Percent cell count reference ranges are not reported, since discordance with absolute values may lead to misinterpretation of CBC data. Current Interpretive Data was last revised on 2017. Testing performed by: [address] [address] Basophil pct 0.2 % [facility] Comment: Interpretive Data Percent cell count reference ranges are not reported, since discordance with absolute values may lead to misinterpretation of CBC data. Current Interpretive Data was last revised on 2017. Testing performed by: [address] [address] Blood 07/01/2024 2:02 PM CDT 07/01/2024 2:12 PM CDT us Ilana Stevens MD LAB BLOOD ORDERABLES F inal Result MARY JANE [address] [facility] Department [place] [address] * Pro B-type natriuretic peptide (07/01/2024 2:02 [...] Last Revised Date: 2017. Testing performed by: [address] [address] Blood 07/01/2024 2:02 PM CDT 07/01/2024 2:12 PM CDT us Ilana Stevens MD LAB BLOOD ORDERABLES F inal Result [facility] [address] [facility] Department [place] [address] * (ABNORMAL) CBC with auto differential (07/01/2024 2:02 PM CDT) [facility] WBC 9.0 3.8 - 9.9 K/cumm Comment:Testing performed by : [address] [address] Hgb 13.2 11.9 - 15.5 g/dL MARY JANE PHAM Comment:Testing performed by : [address] [address] Hct 41.1 35.6 - 45.5 % MARY JANE PHAM Comment:Testing performed by : [address] [address] Plt 277 150 - 400 K/cumm MARY JANE PHAM Comment:Testing performed by : [address] [address] MPV 9.5 9.1 - 12.3 fL MARY JANE PHAM Comment:Testing performed by : [address] [address] RBC 4.53 3.90 - 5.20 M/cumm MARY JANE PHAM Comment:Testing performed by : [address] [address] MCV 90.7 81.3 - 96.4 fL MARY JANE Comment:Testing performed by : [address] [address] MCH 29.1 27.1 - 33.3 pg MARY JANE Comment:Testing performed by : [address], [address] MCHC 32.1(L) 32.3 - 35.7 g/dL MARY JANE Comment:Testing performed by : [address], [address] RDW CV 13.2 11.1 - 14.9 % MARY JANE Comment:Testing performed by : [address] [address] RDW SD 44.2 35.7 - 48.1 fL MARY JANE Comment:Testing performed by : [address] [address] NRBC abs 0.00 0.00 - 0.01 K/cumm MARY JANE Comment:Testing performed by : [address], [address] Blood 07/01/2024 2:02 PM CDT 07/01/2024 2:12 PM CDT us Ilana Stevens MD LAB BLOOD ORDERABLES F inal Result [facility] [address] [facility] Department [place] [address] * Comprehensive metabolic panel (07/01/2024 2:02 PM CDT) [facility] Sodium 137 135 - 145 mmol/L Comment:Testing performed by : [address] [address] Potassium, pl 4.2 3.3 - 4.9 mmol/L [facility] Comment:Testing performed by : [address], [place]., [address] Chloride 101 97 - 110 mmol/L [facility] Comment:Testing performed by : [address], [place]., [address] CO2 27 22 - 32 mmol/L MARY JANE Comment:Testing performed by : [address], [place]., [address] Anion gap 9 2 - 15 mmol/L [facility] Comment:Testing performed by : [address], [place]., [address] BUN 15 6 - 25 mg/dL [facility] Comment:Testing performed by : [address], [place]., [address] Creatinine 0.60 0.60 - 1.10 mg/dL [facility] Comment:Testing performed by : [address] [address] Glucose 166 70 - 199 mg/dL [facility] Comment: Interpretive Data Fasting glucose [...] was last revised 2022. Testing performed by: [address] [address] Calcium 9.8 8.5 - 10.3 mg/dL [facility] Comment:Testing performed by : [address] [address] Bilirubin, total 0.5 0.1 - 1.2 mg/dL [facility] Comment:Testing performed by : [address] [address] Protein, pl 8.0 6.5 - 8.5 g/dL MARY JANE Comment:Testing performed by : [address] [address] Albumin 3.8 3.5 - 5.0 g/dL MARY JANE Comment:Testing performed by : [address] [address] Alk phos 72 40 - 130 Units/L MARY JANE Comment:Testing performed by : [address] [address] ALT 19 7 - 45 Units/L MARY JANE Comment:Testing performed by : [address] [address] AST 23 10 - 45 Units/L MARY JANE Comment:Testing performed by : [address] [address] Blood 07/01/2024 2:02 PM CDT 07/01/2024 2:12 PM CDT Ilana Stevens MD LAB BLOOD ORDERABLES F inal Result MARY JANE [address] [facility] Department [place] [address] * POCT glucose (05/26/2024 4:27 PM [facility]) Glucose, POC 137 70 - 199 mg/dL Blood 05/26/2024 4:27 PM [facility] 05/26/2024 4:27 PM [facility] us Carlos Real MD LAB POCT ORDERABLES - DEVICE Fin al Result [facility] Department [place] [address] * POCT glucose (05/26/2024 11:38 AM [facility]) Glucose, POC 146 70 - 199 mg/dL Blood 05/26/2024 11:3 8 AM [facility] 05/26/2024 11:38 AM [facility] Carlos Real MD LAB POCT ORDERABLES - DEVICE Fin al Result [facility] [place] [address] * POCT glucose (05/26/2024 8:12 AM [facility]) Glucose, POC 134 70 - 199 mg/dL Blood 05/26/2024 8:12 AM [facility] 05/26/2024 8:12 AM [facility] Carlos Real MD LAB POCT ORDERABLES - DEVICE Fin al Result Performing Organization Address [facility] de Phone Number MARY JANE [facility] [place] [address] * eGFR (05/26/2024 12:05 AM [facility]) eGFR >90 >=60 mL/min/1. 73 m2 Comment: [...] reviewed 2021. Blood 05/26/2024 12:0 5 AM [facility] 05/26/2024 12:23 AM [facility] Carlos Real MD LAB BLOOD ORDERABLES Final Resul t MARY JANE [facility] Department [place] [address] * (ABNORMAL) Differential, auto (05/26/2024 12:05 AM [facility]) Neutrophil abs 6.4 1.5 - 6.5 K/cumm Imm gran abs 0.0 0.0 - 0.1 K/cumm [facility] Lymphocyte abs 2.9 0.8 - 3.3 K/cumm [facility] Monocyte abs 0.9(H) 0.2 - 0.8 K/cumm [facility] Eosinophil abs 0.3 0.0 - 0.5 K/cumm [facility] Basophil abs 0.0 0.0 - 0.1 K/cumm [facility] Neutrophil pct 60.4 % [facility] Comment: Interpretive Data Percent cell count reference ranges are not reported, since discordance with absolute values may lead to misinterpretation of CBC data. Current Interpretive Data was last revised on 2017. Imm gran pct 0.4 % [facility] Comment: Interpretive Data Percent cell count reference ranges are not reported, since discordance with absolute values may lead to misinterpretation of CBC data. Current Interpretive Data was last revised on 2017. Lymphocyte pct 27.5 % [facility] Comment: Interpretive Data Percent cell count reference ranges are not reported, since discordance with absolute values may lead to misinterpretation of CBC data. Current Interpretive Data was last revised on 2017. Monocyte pct 8.2 % [facility] Comment: Interpretive Data Percent cell count reference ranges are not reported, since discordance with absolute values may lead to misinterpretation of CBC data. Current Interpretive Data was last revised on 2017. Eosinophil pct 3.1 % [facility] Comment: Interpretive Data Percent cell count reference ranges are not reported, since discordance with absolute values may lead to misinterpretation of CBC data. Current Interpretive Data was last revised on 2017. Basophil pct 0.4 % [facility] Comment: Interpretive Data Percent cell count reference ranges are not reported, since discordance with absolute values may lead to misinterpretation of CBC data. Current Interpretive Data was last revised on 2017. Blood 05/26/2024 12:0 5 AM [facility] 05/26/2024 12:07 AM [facility] Carlos Real MD LAB BLOOD ORDERABLES Final Resul t Performing Organization Address [facility] de Phone Number [facility] [place] [address] * (ABNORMAL) CBC with auto differential (05/26/2024 12:05 AM [facility]) WBC 10.6(H) 3.8 - 9.9 K/cumm Hgb 12.5 11.9 - 15.5 g/dL [facility] Hct 39.2 35.6 - 45.5 % [facility] Plt 248 150 - 400 K/cumm [facility] MPV 9.7 9.1 - 12.3 fL [facility] RBC 4.32 3.90 - 5.20 M/cumm [facility] MCV 90.7 81.3 - 96.4 fL [facility] MCH 28.9 27.1 - 33.3 pg [facility] MCHC 31.9(L) 32.3 - 35.7 g/dL [facility] RDW CV 13.5 11.1 - 14.9 % [facility] RDW SD 45.1 35.7 - 48.1 fL [facility] NRBC abs 0.00 0.00 - 0.01 K/cumm [facility] Blood 05/26/2024 12:0 5 AM [facility] 05/26/2024 12:07 AM [facility] Carlos Real MD LAB BLOOD ORDERABLES Final Resul t Performing Organization Address [facility] Co de Phone Number [facility] [place] [address] * Phosphorus (05/26/2024 12:05 AM [facility]) Pathologist [facility] Phosphorus, pl 3.2 2.3 - 4.5 mg/dL Blood 05/26/2024 12:0 5 AM [facility] 05/26/2024 12:08 AM [facility] Carlos Real MD LAB BLOOD ORDERABLES Final Resul t Performing Organization Address [facility] de Phone Number [facility] [place] [address] * Magnesium (05/26/2024 12:05 AM [facility]) Pathologist [facility] Magnesium 1.8 1.4 - 2.5 mg/dL Blood 05/26/2024 12:0 5 AM [facility] 05/26/2024 12:08 AM [facility] Carlos Real MD LAB BLOOD ORDERABLES Final Resul t Performing Organization Address [facility] de Phone Number [facility] [place] [address] * (ABNORMAL) Comprehensive metabolic panel (05/26/2024 12:05 AM [facility]) Pathologist [facility] Sodium 136 135 - 145 mmol/L Potassium, pl 4.2 3.3 - 4.9 mmol/L [facility] Chloride 101 97 - 110 mmol/L [facility] CO2 29 22 - 32 mmol/L [facility] Anion gap 6 2 - 15 mmol/L [facility] BUN 19 6 - 25 mg/dL [facility] Creatinine 0.67 0.60 - 1.10 mg/dL [facility] Glucose 164 70 - 199 mg/dL [facility] Comment: Interpretive Data Fasting glucose [...] 2022. Calcium 9.4 8.5 - 10.3 mg/dL [facility] Bilirubin, total 0.4 0.1 - 1.2 mg/dL [facility] Protein, pl 7.1 6.5 - 8.5 g/dL [facility] Albumin 3.3(L) 3.5 - 5.0 g/dL [facility] Alk phos 65 40 - 130 Units/L [facility] ALT 17 7 - 45 Units/L [facility] AST 19 10 - 45 Units/L [facility] Blood 05/26/2024 12:0 5 AM [facility] 05/26/2024 12:08 AM [facility] Carlos Real MD LAB BLOOD ORDERABLES Final Resul t Performing Organization Address [facility] Phone Number [facility] Department [place] [address] * POCT glucose (05/25/2024 7:44 PM [facility]) Glucose, POC 160 70 - 199 mg/dL Blood 05/25/2024 7:44 PM [facility] 05/25/2024 7:44 PM [facility] Result [facility] Carlos Real MD LAB POCT ORDERABLES - DEVICE Fin al Result Performing Organization Address [facility] de Phone Number [facility] Department [place] [address] * POCT glucose (05/25/2024 5:24 PM [facility]) Glucose, POC 152 70 - 199 mg/dL Blood 05/25/2024 5:24 PM [facility] 05/25/2024 5:24 PM [facility] Carlos Real MD LAB POCT ORDERABLES - DEVICE Fin al Result Performing Organization Address [facility] Phone Number [facility] [place] [address] * POCT glucose (05/25/2024 11:37 AM [facility]) Glucose, POC 143 70 - 199 mg/dL Blood 05/25/2024 11:3 7 AM [facility] 05/25/2024 11:37 AM [facility] Carlos Real MD LAB POCT ORDERABLES - DEVICE Fin al Result Performing Organization Address [facility] [place] [address] * POCT glucose (05/25/2024 7:27 AM [facility]) Glucose, POC 134 70 - 199 mg/dL Blood 05/25/2024 7:27 AM [facility] 05/25/2024 7:27 AM [facility] Carlos Real MD LAB POCT ORDERABLES - DEVICE Fin al Result Performing Organization Address [facility] Co de Phone Number [facility] [place] [address] * eGFR (05/25/2024 12:20 AM [facility]) eGFR >90 >=60 mL/min/1. 73 m2 Comment: [...] reviewed 2021. Blood 05/25/2024 12:2 0 AM [facility] 05/25/2024 12:43 AM [facility] us Naila Guzman INTEGRATION TECHNICIAN LAB BLOOD ORDERABLES Final Result [facility] Department [place] [address] * Differential, auto (05/25/2024 12:20 AM [facility]) Neutrophil abs 5.9 1.5 - 6.5 K/cumm Imm gran abs 0.0 0.0 - 0.1 K/cumm [facility] Lymphocyte abs 2.4 0.8 - 3.3 K/cumm [facility] Monocyte abs 0.8 0.2 - 0.8 K/cumm [facility] Eosinophil abs 0.3 0.0 - 0.5 K/cumm [facility] Basophil abs 0.0 0.0 - 0.1 K/cumm [facility] Neutrophil pct 62.6 % [facility] Comment: Interpretive Data Percent cell count reference ranges are not reported, since discordance with absolute values may lead to misinterpretation of CBC data. Current Interpretive Data was last revised on 2017. Imm gran pct 0.3 % [facility] Comment: Interpretive Data Percent cell count reference ranges are not reported, since discordance with absolute values may lead to misinterpretation of CBC data. Current Interpretive Data was last revised on 2017. Lymphocyte pct 24.8 % [facility] Comment: Interpretive Data Percent cell count reference ranges are not reported, since discordance with absolute values may lead to misinterpretation of CBC data. Current Interpretive Data was last revised on 2017. Monocyte pct 8.8 % [facility] Comment: Interpretive Data Percent cell count reference ranges are not reported, since discordance with absolute values may lead to misinterpretation of CBC data. Current Interpretive Data was last revised on 2017. Eosinophil pct 3.2 % [facility] Comment: Interpretive Data Percent cell count reference ranges are not reported, since discordance with absolute values may lead to misinterpretation of CBC data. Current Interpretive Data was last revised on 2017. Basophil pct 0.3 % [facility] Comment: Interpretive Data Percent cell count reference ranges are not reported, since discordance with absolute values may lead to misinterpretation of CBC data. Current Interpretive Data was last revised on 2017. Blood 05/25/2024 12:2 0 AM [facility] 05/25/2024 12:29 AM [facility] us Naila Guzman NP LAB BLOOD ORDERABLES Final Result [facility] Department [place] [address] * (ABNORMAL) CBC with auto differential (05/25/2024 12:20 AM [facility]) Pathologist [facility] WBC 9.5 3.8 - 9.9 K/cumm Hgb 12.8 11.9 - 15.5 g/dL [facility] Hct 40.0 35.6 - 45.5 % [facility] Plt 246 150 - 400 K/cumm [facility] MPV 9.8 9.1 - 12.3 fL [facility] RBC 4.42 3.90 - 5.20 M/cumm [facility] MCV 90.5 81.3 - 96.4 fL [facility] MCH 29.0 27.1 - 33.3 pg [facility] MCHC 32.0(L) 32.3 - 35.7 g/dL [facility] RDW CV 13.5 11.1 - 14.9 % [facility] RDW SD 45.3 35.7 - 48.1 fL [facility] NRBC abs 0.00 0.00 - 0.01 K/cumm [facility] Blood 05/25/2024 12:2 0 AM [facility] 05/25/2024 12:29 AM [facility] Naila Guzman NP LAB BLOOD [place] [address] * Phosphorus (05/25/2024 12:20 AM [facility]) Pathologist [facility] Phosphorus, pl 3.1 2.3 - 4.5 mg/dL Blood 05/25/2024 12:2 0 AM [facility] 05/25/2024 12:29 AM [facility] Naila Guzman INTEGRATION TECHNICIAN LAB BLOOD ORDERABLES Final Result Performing Organization Address [facility] Co de Phone Number [facility] [place] [address] * Magnesium (05/25/2024 12:20 AM [facility]) [facility] Magnesium 1.9 1.4 - 2.5 mg/dL Blood 05/25/2024 12:2 0 AM [facility] 05/25/2024 12:29 AM [facility] Naila Guzman NP LAB BLOOD ORDERABLES Final Result Performing Organization Address City/[facility] Co de Phone Number [facility] [place] [address] * (ABNORMAL) Comprehensive metabolic panel (05/25/2024 12:20 AM [facility]) Pathologist [facility] Sodium 138 135 - 145 mmol/L Potassium, pl 4.4 3.3 - 4.9 mmol/L [facility] Chloride 101 97 - 110 mmol/L [facility] CO2 29 22 - 32 mmol/L [facility] Anion gap 8 2 - 15 mmol/L [facility] BUN 20 6 - 25 mg/dL [facility] Creatinine 0.69 0.60 - 1.10 mg/dL [facility] Glucose 156 70 - 199 mg/dL [facility] Comment: Interpretive Data Fasting glucose [...] AST 16 10 - 45 Units/L [facility] Blood 05/25/2024 12:2 0 AM [facility] 05/25/2024 12:29 AM [facility] us Naila Guzman NP LAB BLOOD ORDERABLES Final Result Performing Organization Address [facility] Co de Phone Number [facility] Department [place] [address] * POCT glucose (05/24/2024 8:13 PM [facility]) [facility] Signature Glucose, POC 171 70 - 199 mg/dL Blood 05/24/2024 8:13 PM [facility] 05/24/2024 8:13 PM [facility] us Carlos Real MD LAB POCT ORDERABLES - DEVICE Fin al Result Performing Organization Address [facility] Co de Phone Number [facility] Department [place] [address] * POCT glucose (05/24/2024 5:17 PM [facility]) Glucose, POC 133 70 - 199 mg/dL Blood 05/24/2024 5:17 PM [facility] 05/24/2024 5:17 PM [facility] Carlos Real MD LAB POCT ORDERABLES - DEVICE Fin al Result Performing Organization Address [facility] de Phone Number [facility] [place] [address] * POCT glucose (05/24/2024 12:49 PM [facility]) Glucose, POC 180 70 - 199 mg/dL Blood 05/24/2024 12:4 9 PM [facility] 05/24/2024 12:49 PM [facility] Carlos Real MD LAB POCT ORDERABLES - DEVICE Fin al Result Performing Organization Address [facility] de Phone Number [facility] [place] [address] * POCT glucose (05/24/2024 9:22 AM [facility]) Pathologist [facility] Glucose, POC 139 70 - 199 mg/dL Blood 05/24/2024 9:22 AM [facility] 05/24/2024 9:22 AM [facility] Carlos Real MD LAB POCT ORDERABLES - DEVICE Fin al Result Performing Organization Address [facility] de Phone Number [facility] [place] [address] * Herpes Simplex Virus (HSV) PCR Oral (05/24/2024 8:47 AM [facility]) [facility] HSV DNA Not Detected Not Detected [...] reviewed on 08/21/2018 Oral 05/24/2024 8:47 AM [facility] 05/24/2024 9:24 AM [facility] Narrative [facility] - 05/24/2024 4:28 PM [facility] Oral ulcer swab Naila Guzman NP LAB MICROBIOLOGY - GENERAL ORDERABLES Final Result [facility] Department [place] [address] [facility] * POCT glucose (05/24/2024 8:22 AM [facility]) Pathologist [facility] Glucose, POC 132 70 - 199 mg/dL Blood 05/24/2024 8:22 AM [facility] 05/24/2024 8:22 AM [facility] Carlos Real MD LAB POCT ORDERABLES - DEVICE Fin al Result Performing Organization Address City/[facility]/ZIP Co de Phone Number [facility] Department [place] [address] * eGFR (05/24/2024 12:29 AM [facility]) eGFR 87 >=60 mL/min/1. 73 m2 Comment: [...] reviewed 2021. Blood 05/24/2024 12:2 9 AM [facility] 05/24/2024 12:54 AM [facility] us Naila Guzman INTEGRATION TECHNICIAN LAB BLOOD ORDERABLES Final Result [facility] Department [place] [address] * (ABNORMAL) Differential, auto (05/24/2024 12:29 AM [facility]) Neutrophil abs 5.3 1.5 - 6.5 K/cumm Imm gran abs 0.0 0.0 - 0.1 K/cumm [facility] Lymphocyte abs 3.0 0.8 - 3.3 K/cumm [facility] Monocyte abs 0.9(H) 0.2 - 0.8 K/cumm [facility] Eosinophil abs 0.3 0.0 - 0.5 K/cumm [facility] Basophil abs 0.0 0.0 - 0.1 K/cumm [facility] Neutrophil pct 55.8 % [facility] Comment: Interpretive Data Percent cell count reference ranges are not reported, since discordance with absolute values may lead to misinterpretation of CBC data. Current Interpretive Data was last revised on 2017. Imm gran pct 0.4 % [facility] Comment: Interpretive Data Percent cell count reference ranges are not reported, since discordance with absolute values may lead to misinterpretation of CBC data. Current Interpretive Data was last revised on 2017. Lymphocyte pct 31.4 % [facility] Comment: Interpretive Data Percent cell count reference ranges are not reported, since discordance with absolute values may lead to misinterpretation of CBC data. Current Interpretive Data was last revised on 2017. Monocyte pct 9.0 % [facility] Comment: Interpretive Data Percent cell count reference ranges are not reported, since discordance with absolute values may lead to misinterpretation of CBC data. Current Interpretive Data was last revised on 2017. Eosinophil pct 3.0 % [facility] Comment: Interpretive Data Percent cell count reference ranges are not reported, since discordance with absolute values may lead to misinterpretation of CBC data. Current Interpretive Data was last revised on 2017. Basophil pct 0.4 % [facility] Comment: Interpretive Data Percent cell count reference ranges are not reported, since discordance with absolute values may lead to misinterpretation of CBC data. Current Interpretive Data was last revised on 2017. Blood 05/24/2024 12:2 9 AM [facility] 05/24/2024 12:54 AM [facility] us Naila Guzman INTEGRATION TECHNICIAN LAB BLOOD ORDERABLES Final Result [facility] Department [place] [address] * CBC with auto differential (05/24/2024 12:29 AM [facility]) WBC 9.5 3.8 - 9.9 K/cumm Hgb 12.6 11.9 - 15.5 g/dL [facility] Hct 39.0 35.6 - 45.5 % [facility] Plt 223 150 - 400 K/cumm [facility] MPV 9.6 9.1 - 12.3 fL [facility] RBC 4.23 3.90 - 5.20 M/cumm [facility] MCV 92.2 81.3 - 96.4 fL [facility] MCH 29.8 27.1 - 33.3 pg [facility] MCHC 32.3 32.3 - 35.7 g/dL [facility] RDW CV 13.7 11.1 - 14.9 % [facility] RDW SD 46.5 35.7 - 48.1 fL [facility] NRBC abs 0.00 0.00 - 0.01 K/cumm [facility] Blood 05/24/2024 12:2 9 AM [facility] 05/24/2024 12:54 AM [facility] us Naila Guzman INTEGRATION TECHNICIAN LAB BLOOD ORDERABLES Final Result Performing Organization Address City/[facility] Co de Phone Number [facility] [place] [address] * Phosphorus (05/24/2024 12:29 AM [facility]) [facility] Phosphorus, pl 3.6 2.3 - 4.5 mg/dL Blood 05/24/2024 12:2 9 AM [facility] 05/24/2024 12:54 AM [facility] us Naila Guzman NP LAB BLOOD ORDERABLES Final Result Performing Organization Address [facility] [place] [address] * Magnesium (05/24/2024 12:29 AM [facility]) [facility] Magnesium 1.9 1.4 - 2.5 mg/dL Blood 05/24/2024 12:2 9 AM [facility] 05/24/2024 12:54 AM [facility] Naila Guzman NP LAB BLOOD ORDERABLES Final Result Performing Organization Address [facility] [place] [address] * (ABNORMAL) Comprehensive metabolic panel (05/24/2024 12:29 AM CHALKER SOLES) [facility] Sodium 139 135 - 145 mmol/L Potassium, pl 4.3 3.3 - 4.9 mmol/L [facility] Chloride 103 97 - 110 mmol/L [facility] CO2 29 22 - 32 mmol/L [facility] Anion gap 7 2 - 15 mmol/L [facility] BUN 19 6 - 25 mg/dL [facility] Creatinine 0.75 0.60 - 1.10 mg/dL [facility] Glucose 157 70 - 199 mg/dL [facility] Comment: Interpretive Data Fasting glucose [...] 2022. Calcium 9.2 8.5 - 10.3 mg/dL [facility] Bilirubin, total 0.4 0.1 - 1.2 mg/dL [facility] Protein, pl 7.1 6.5 - 8.5 g/dL [facility] Albumin 3.3(L) 3.5 - 5.0 g/dL [facility] Alk phos 65 40 - 130 Units/L [facility] ALT 18 7 - 45 Units/L [facility] AST 17 10 - 45 Units/L [facility] Blood 05/24/2024 12:2 9 AM [facility]ES 05/24/2024 12:54 AM [facility]ALK[facility]ES us Naila Guzman INTEGRATION TECHNICIAN LAB BLOOD ORDERABLES Final Result Performing Organization Address [facility]/ZIP Co de Phone Number [facility] Department [place] [address] * POCT glucose (05/23/2024 8:16 PM CHALKER SOLES) [facility] Glucose, POC 145 70 - 199 mg/dL Blood 05/23/2024 8:16 PM CHALK[facility]ES 05/23/2024 8:16 PM [facility]ALK[facility] SOLES Carlos Real MD LAB POCT ORDERABLES - DEVICE Fin al Result Performing Organization Address [facility]/ZIP Co de Phone Number [facility] [place] [address] * POCT glucose (05/23/2024 6:14 PM CHALKER SOLES) Glucose, POC 181 70 - 199 mg/dL Blood 05/23/2024 6:14 PM [facility]ES 05/23/2024 6:14 PM [facility]ES Carlos Real MD LAB POCT ORDERABLES - DEVICE Fin al Result Performing Organization Address City/[facility] [place] [address] * POCT glucose (05/23/2024 12:17 PM CHALKER SOLES) Glucose, POC 159 70 - 199 mg/dL Blood 05/23/2024 12:1 7 PM [facility]ES 05/23/2024 12:17 PM [facility]ES Cem Knapp MD LAB POCT ORDERABLES - DEVIC E Final Result Performing Organization Address [facility] [place] [address] * US Vein Duplex Lower Extremity Bilateral Complete (05/23/2024 11:45 AM CHALKER SOLES) LV EF % CONS SCIMAGE Anatomical Region Laterality Modality Vascular Bilateral Ultrasound 05/23/2024 11:1 2 AM CHALKER [facility]ES Narrative 05/23/2024 9:43 PM [facility]ALKER [facility]ES [employer] - Department of Vascular Surgery, Vascular Laboratory [address] [place] [id number] Lower Extremity Venous Ultrasound Report Patient Name: MOHSEN MARQUES M : 1955 (68y 11m) Study Date: 05/23/2024 11:12:03 AM Gender: F Tech: VELVET Location: [id number] Ref Provider: CARLOS REAL Quality: Adequate Order Provider: CARLOS REAL PROCEDURES: Vascular Report: Venous Duplex imaging was performed bilaterally in the lower extremities. The common femoral, femoral, popliteal, posterior tibial, peroneal veins were evaluated for patency, spontaneity and phasicity with Doppler, compression and augmentation maneuvers. Great saphenous vein proximal at the junction was evaluated with compression maneuvers. INDICATIONS: Localized edema. FINDINGS: Performing Operative Supervisor: Marlys Castillo RVT. Bilateral: Venous Doppler signals [...] Vu Obregon MD, FACS 05/23/2024 9:42:19 PM [facility]ALKER [facility]ES Procedure Note Vu Obregon MD - 05/23/2024 [facility] - Department of Vascular Surgery,Vascular Laboratory [address] [place], [place] [id number] Lower Extremity Venous Ultrasound Report Patient Name: MOHSEN MARQUES M : 1955 (68y 11m) Study Date: 05/23/2024 11:12:03 AM Gender: F Tech: VELVET Location: [id number] Ref Provider: CARLOS REAL Quality: Adequate Order Provider: CARLOS REAL PROCEDURES: Vascular Report: Venous Duplex imaging was performed bilaterally in the lower extremities.The common femoral, femoral, popliteal, posterior tibial, peroneal veins wereevaluated for patency, spontaneity and phasicity with Doppler, compression and augmentationmaneuvers. Great saphenous vein proximal at the junction was evaluated with compressionmaneuvers. INDICATIONS: Localized edema. FINDINGS: Performing Operative Supervisor: Marlys Castillo RVT. Bilateral: Venous Doppler signals [...] Vu Obregon MD FACS 05/23/2024 9:42:19 PM [facility]ES Carlos Real MD [facility] PROCEDURES Final Result * (ABNORMAL) POCT glucose (05/23/2024 8:16 AM CHALKER SOLES) Glucose, POC 204(H) 70 - 199 mg/dL Blood 05/23/2024 8:16 AM CHALKER SOLES 05/23/2024 8:16 AM [facility]ALK[facility] SOLES Cem Knapp MD LAB POCT ORDERABLES - DEVIC E Final Result [facility] Department [place] [address] * (ABNORMAL) Differential, auto (05/23/2024 2:30 AM CHALKER SOLES) Neutrophil abs 8.0(H) 1.5 - 6.5 K/cumm Imm gran abs 0.1 0.0 - 0.1 K/cumm [facility] Lymphocyte abs 2.6 0.8 - 3.3 K/cumm [facility] Monocyte abs 1.0(H) 0.2 - 0.8 K/cumm [facility] Eosinophil abs 0.3 0.0 - 0.5 K/cumm [facility] Basophil abs 0.0 0.0 - 0.1 K/cumm [facility] Neutrophil pct 66.5 % [facility] Comment: Interpretive Data Percent cell count reference ranges are not reported, since discordance with absolute values may lead to misinterpretation of CBC data. Current Interpretive Data was last revised on 2017. Imm gran pct 0.5 % [facility] Comment: Interpretive Data Percent cell count reference ranges are not reported, since discordance with absolute values may lead to misinterpretation of CBC data. Current Interpretive Data was last revised on 2017. Lymphocyte pct 21.9 % [facility] Comment: Interpretive Data Percent cell count reference ranges are not reported, since discordance with absolute values may lead to misinterpretation of CBC data. Current Interpretive Data was last revised on 2017. Monocyte pct 8.5 % [facility] Comment: Interpretive Data Percent cell count reference ranges are not reported, since discordance with absolute values may lead to misinterpretation of CBC data. Current Interpretive Data was last revised on 2017. Eosinophil pct 2.3 % [facility] Comment: Interpretive Data Percent cell count reference ranges are not reported, since discordance with absolute values may lead to misinterpretation of CBC data. Current Interpretive Data was last revised on 2017. Basophil pct 0.3 % [facility] Comment: Interpretive Data Percent cell count reference ranges are not reported, since discordance with absolute values may lead to misinterpretation of CBC data. Current Interpretive Data was last revised on 2017. Blood 05/23/2024 2:30 AM [facility]ES 05/23/2024 1:03 AM [facility]ES us Naila Guzman INTEGRATION TECHNICIAN LAB BLOOD ORDERABLES Final Result [facility] Department of Laboratories [place], [place] [id number] * (ABNORMAL) CBC with auto differential (05/23/2024 2:30 AM CHALKER SOLES) WBC 11.9(H) 3.8 - 9.9 K/cumm Hgb 12.8 11.9 - 15.5 g/dL [facility] Hct 39.6 35.6 - 45.5 % [facility] Plt 254 150 - 400 K/cumm [facility] MPV 9.7 9.1 - 12.3 fL [facility] RBC 4.43 3.90 - 5.20 M/cumm [facility] MCV 89.4 81.3 - 96.4 fL [facility] MCH 28.9 27.1 - 33.3 pg [facility] MCHC 32.3 32.3 - 35.7 g/dL [facility] RDW CV 13.7 11.1 - 14.9 % [facility] RDW SD 44.6 35.7 - 48.1 fL [facility] NRBC abs 0.00 0.00 - 0.01 K/cumm [facility] Blood 05/23/2024 2:30 AM CHALKER SOLES 05/23/2024 1:03 AM [facility]ES us Naila Guzman INTEGRATION TECHNICIAN LAB BLOOD ORDERABLES Final Result Performing Organization Address City/State/[facility] Co de Phone Number [facility] Department [place] [address] * eGFR (05/23/2024 12:42 AM CHALKER SOLES) eGFR 84 >=60 mL/min/1. 73 m2 Comment: [...] reviewed 2021. Blood 05/23/2024 12:4 2 AM [facility]ES 05/23/2024 1:02 AM [facility]ALKER [facility]ES Naila Guzman NP LAB BLOOD ORDERABLES Final Result Performing Organization Address [facility] de Phone Number [facility] [place] [address] * Type and screen (05/23/2024 12:42 AM CHALKER SOLES) ABO Rh O Positive Dilcia, indirect Negative [facility] Blood 05/23/2024 12:4 2 AM CH[facility]ES 05/23/2024 12:52 AM [facility]ALKER [facility]ES Narrative [facility] - 05/23/2024 1:53 AM CHALKER [facility]ES Has the patient had Daratumumab or Isatuximab in the past 6 months?->Unknown Naila Guzman NP LAB BLOOD BANK TEST ORDERA BLES Final Result Performing Organization Address [facility] de Phone Number [facility] [place] [address] * Uric acid (05/23/2024 12:42 AM CHALKER SOLES) Pathologist [facility] Uric acid 5.5 2.5 - 7.0 mg/dL Blood 05/23/2024 12:4 2 AM [facility]ALKER [facility]ES 05/23/2024 1:02 AM CHALKER [facility]ES Narrative [facility] - 05/23/2024 1:34 AM CHALKER SOLES Monday and only. Morning draw. . Naila Guzman NP LAB BLOOD ORDERABLES Final Result Performing Organization Address [facility] [place] [address] * Phosphorus (05/23/2024 12:42 AM CHALKER SOLES) Phosphorus, pl 4.4 2.3 - 4.5 mg/dL Blood 05/23/2024 12:4 2 AM [facility]ES 05/23/2024 1:02 AM [facility]ES Naila Guzman NP LAB BLOOD ORDERABLES Final Result Performing Organization Address [facility] de Phone Number [facility] [place] [address] * Magnesium (05/23/2024 12:42 AM CHALKER SOLES) [facility] Magnesium 1.9 1.4 - 2.5 mg/dL Blood 05/23/2024 12:4 2 AM CH[facility]ES 05/23/2024 1:02 AM [facility]ALK[facility]ES Naila Guzman NP LAB BLOOD ORDERABLES Final Result Performing Organization Address [facility] de Phone Number [facility] [place] [address] * Lactate dehydrogenase (LD) (05/23/2024 12:42 AM CHALKER SOLES) [facility] Lactate dehydrogenase (LDH) 247 100 - 250 Units/L Blood 05/23/2024 12:4 2 AM CHALKER [facility]ES 05/23/2024 1:02 AM CHALKER [facility]ES Narrative [facility] - 05/23/2024 1:34 AM CHALKER [facility]ES Monday and only. Morning draw. Naila Guzman NP LAB BLOOD ORDERABLES Final Result Performing Organization Address [facility] [place] [address] * Comprehensive metabolic panel (05/23/2024 12:42 AM CHALKER SOLES) [facility] Sodium 136 135 - 145 mmol/L Potassium, pl 4.3 3.3 - 4.9 mmol/L [facility] Chloride 101 97 - 110 mmol/L [facility] CO2 29 22 - 32 mmol/L [facility] Anion gap 6 2 - 15 mmol/L [facility] BUN 18 6 - 25 mg/dL [facility] Creatinine 0.77 0.60 - 1.10 mg/dL [facility] Glucose 194 70 - 199 mg/dL [facility] Comment: Interpretive Data Fasting glucose [...] 2022. Calcium 9.5 8.5 - 10.3 mg/dL [facility] Bilirubin, total 0.5 0.1 - 1.2 mg/dL [facility] Protein, pl 7.4 6.5 - 8.5 g/dL [facility] Albumin 3.5 3.5 - 5.0 g/dL [facility] Alk phos 71 40 - 130 Units/L [facility] ALT 19 7 - 45 Units/L [facility] AST 22 10 - 45 Units/L [facility] Blood 05/23/2024 12:4 2 AM [facility]ES 05/23/2024 1:02 AM [facility]ES us Naila Guzman NP LAB BLOOD ORDERABLES Final Result [facility] Department [place] [address] * (ABNORMAL) POCT glucose (05/22/2024 8:56 PM CHALKER SOLES) [facility] Glucose, POC 210(H) 70 - 199 mg/dL Blood 05/22/2024 8:56 PM CHALKER SOLES 05/22/2024 8:56 PM CH[facility]ER [facility]ES us Cem Knapp MD LAB POCT ORDERABLES - DEVIC E Final Result Performing Organization Address [facility] Co de Phone Number [facility] [place] [address] * POCT glucose (05/22/2024 6:09 PM CHALKER SOLES) Glucose, POC 142 70 - 199 mg/dL Blood 05/22/2024 6:09 PM [facility]ER [facility]ES 05/22/2024 6:09 PM [facility]ES us Leo Henry MD LAB POCT ORDERABLES - NILESH CE Final Result Performing Organization Address [facility] Co de Phone Number [facility] [place] [address] * POCT glucose (05/22/2024 4:26 PM CHALKER SOLES) Glucose, POC 133 70 - 199 mg/dL Blood 05/22/2024 4:26 PM CHALKER SOLES 05/22/2024 4:26 PM CHALKER [facility]ES us Leo Henry MD LAB POCT ORDERABLES - NILESH CE Final Result Performing Organization Address [facility] Co de Phone Number [facility] Department [place] [address] * CT Abdomen Pelvis W Contrast (05/22/2024 2:32 PM CHALKER SOLES) Anatomical Region Laterality Modality Body N/A Computed Tomogra phy 05/22/2024 4:35 PM [facility]ES Impressions 05/22/2024 5:16 PM [facility]ES No acute findings within the abdomen or pelvis. Dictated by: Yesi Mendes M.D. The radiology attending physician has personally reviewed this study, and had reviewed and/or edited this written report and agrees with it. Electronically signed by: Kelli Palmer M.D. Narrative 05/22/2024 5:16 PM [facility]ES EXAMINATION: Computed tomography of the abdomen and [...] sult * POCT glucose (05/22/2024 12:58 PM CHALKER SOLES) Glucose, POC 177 70 - 199 mg/dL Blood 05/22/2024 12:5 8 PM [facility]ES 05/22/2024 12:58 PM [facility]ES Leo Henry MD LAB POCT ORDERABLES - NILESH CE Final Result [facility] Department [place] [address] * (ABNORMAL) POCT glucose (05/22/2024 9:29 AM CHALKER SOLES) Glucose, POC 291(H) 70 - 199 mg/dL Blood 05/22/2024 9:29 AM [facility]ES 05/22/2024 9:29 AM [facility] us Leo Henry MD LAB POCT ORDERABLES - NILESH CE Final Result Performing Organization Address City/[facility]/ZIP Co de Phone Number [facility] [place] [address] * POCT glucose (05/22/2024 6:54 AM CHALKER SOLES) Glucose, POC 142 70 - 199 mg/dL Blood 05/22/2024 6:54 AM [facility]ES 05/22/2024 6:54 AM [facility] us Jimmie Zavala MD LAB POCT ORDERABLES - DEVICE Fin al Result Performing Organization Address [facility] Co de Phone Number [facility] Department [place] [address] * CT Chest PE (CTA) W Contrast (05/22/2024 1:31 AM CHALKER [facility]ES) Anatomical Region Laterality Modality Body N/A Computed Tomogra phy 05/22/2024 2:38 AM [facility] Impressions 05/22/2024 9:12 AM [facility]ES No pulmonary embolism. Dictated by: Miguel Milligan MD The radiology attending physician has personally reviewed this study, and had reviewed and/or edited this written report and agrees with it. Electronically signed by: Jayson Rockwell M.D. Narrative 05/22/2024 9:12 AM [facility] EXAMINATION: CT CHEST PE (CTA) W CONTRAST [...] Result * D-dimer, quantitative (05/22/2024 12:24 AM CHALKER SOLES) D-Dimer 414 <=499 ng/mL FEU Comment: Interpretive [...] on 2019. Blood 05/22/2024 12:2 4 AM [facility] 05/22/2024 12:42 AM [facility]ER [facility]ES Angeline Soler MD LAB BLOOD ORDERABLES F inal Result [facility] Department [place] [address] * Troponin I high-sensitivity 2-hour (05/21/2024 11:09 PM CHALKER SOLES) Trop I hs 5 <=17 ng/L Comment: Interpretive Data For further hscTnI resources including the diagnostic algorithm and an aid in interpretation, copy and paste this link: https://bjhlab.testcatalog.org/show/hsTrop-1 Current Interpretive Data last revised 2019. Trop I hs delta See Comment ng/L [facility] Comment:Inappropriate collec tion time to report a delta. Trop I hs pct delta See Comment % [facility] Comment:Inappropriate collec tion time to report a delta. Trop I hs interp See Comment [facility] Comment:Inappropriate collec tion time to report a delta. Blood 05/21/2024 11:0 9 PM [facility]ES 05/21/2024 11:26 PM [facility] us Cira Castro MD LAB BLOOD ORDERABL ES Final Result Performing Organization Address [facility] Co de Phone Number [facility] Department [place] [address] * (ABNORMAL) Urinalysis reflex to microscopic and culture Urine (05/21/2024 11:09 PM CHALKER SOLES) Color, ur Yellow Yellow Clarity, ur Clear Clear [facility] Specific gravity, ur 1.025 1.003 - 1.030 [facility] pH, urine 6.0 [facility] Comment: Interpretive Data U rine pH is affected by diet, medications, systemic acid-base disturbances, and renal tubular function. pH may affect urinary stone formation. For example, urine pH below 6.0 may help reduce the tendency for calcium phosphate stones and pH greater than 6.0 may reduce the tendency for uric acid stone formation. Source: [facility] Current Interpretive Data was last revised on 2017 Protein, ur ql 1+(A) Negative [facility] Glucose, ur ql Negative Negative [facility] Ketones, ur Negative Negative [facility] Bilirubin, ur Negative Negative [facility] Blood, ur Trace(A) Negative [facility] Urobilinogen, ur <2.0 <2.0 mg/dL [facility] Nitrite, ur Positive(A) Negative [facility] Leukocyte esterase, ur 1+(A) Negative [facility] UA reflex comment Reflex to microscopic UA will be performed. [facility] Urine 05/21/2024 11:0 9 PM [facility]ES 05/21/2024 11:22 PM [facility] us Angeline Soler MD LAB MICROBIOLOGY - GEN ERAL ORDERABLES Final Result Performing Organization Address City/State/[facility] Co de Phone Number [facility] Department [place] [address] * Respiratory pathogen panel Nasopharyngeal (05/21/2024 11:09 PM CHALKER SOLES) Pathologist [facility] Influenza A RNA Not Detected Not Detected Influenza B RNA Not Detected Not Detected [facility] RSV RNA Not Detected Not Detected [facility] COVID-19 RNA Not Detected Not Detected [facility] Coronavirus 229E RNA Not Detected Not Detected [facility] Coronavirus HKU1 RNA Not Detected Not Detected [facility] Coronavirus NL63 RNA Not Detected Not Detected [facility] Coronavirus OC43 RNA Not Detected Not Detected [facility] Adenovirus DNA Not Detected Not Detected [facility] Metapneumovirus RNA Not Detected Not Detected [facility] Rhinovirus/Enterov irus RNA Not Detected Not Detected [facility] Parainfluenza 1 RNA Not Detected Not Detected [facility] Parainfluenza 2 RNA Not Detected Not Detected [facility] Parainfluenza 3 RNA Not Detected Not Detected [facility] Parainfluenza 4 RNA Not Detected Not Detected [facility] B. pertussis DNA Not Detected Not Detected [facility] B. parapertussis DNA Not Detected Not Detected [facility] C. pneumoniae DNA Not Detected Not Detected [facility] M. pneumoniae DNA Not Detected Not Detected [facility] Nasopharyngeal 05/21/2024 11 :09 PM [facility]ES 05/22/2024 4:48 AM [facility] Narrative [facility] - 05/22/2024 5:55 AM [facility]ES Is the Patient experiencing symptoms consistent with COVID?->No Surveillance testing for transplant patient?->No Interpretive Data The [employer] FilmArray Respiratory Panel (RP2.1) assay is a [...] assay has FDA clearance for testing of INTEGRATION TECHNICIAN swabs. The performance of additional specimen types has been assessed by the performing laboratory. The performance characteristics of this assay have been determined by [facility] Infectious Disease [facility]. Current interpretive data was last revised on 22. Angeline Soler MD LAB MICROBIOLOGY - GEN ERAL ORDERABLES Final Result [facility] Department [place] [address] * (ABNORMAL) Urinalysis, microscopic only (05/21/2024 11:09 PM CHALKER SOLES) WBC, ur 11-20(A) 0 - 5 /HPF RBC, ur 3-5(A) 0 - 2 /HPF [facility] Epithelial cells, squamous, ur 1-5 0 - 5 /HPF [facility] Bacteria, ur 3+(A) [facility] Yeast, ur Trace(A) [facility] Mucous, ur Present(A) [facility] Culture Reflex Comment Reflex to urine culture will be performed. [facility] Urine 05/21/2024 11:0 9 PM [facility]ES 05/21/2024 11:21 PM [facility] us Angeline Soler MD LAB URINE ORDERABLES F inal Result [facility] Department [place] [address] * (ABNORMAL) Urine culture Urine (05/21/2024 11:09 PM CH[facility]ER [facility]ES) Report Amended Report - Complete: Greater than or equal to 100,000 colonies/mL of Escherichia coli Plus growth of clinically insignificant bacterial yesenia. (.) Organism ESCHERICHIA COLI [facility] Organism PLUS GROWTH OF CLINICALLY INSIGNIFICANT YESENIA. [facility] Urine 05/21/2024 11:0 9 PM [facility] 05/22/2024 2:40 AM [facility] Narrative [facility] - 05/25/2024 10:36 AM [facility]ES Urine culture reflexed based upon urinalysis results. Testing performed by [facility] ([phone]) Organism Antibiotic Method Susceptibility Escherichia coli Ampicillin [...] Edited Result - Final Performing Organization Address City/[facility]/ZIP Co de Phone Number [facility] Department [place] [address] * POCT glucose (05/21/2024 8:55 PM CHALKER SOLES) Pathologist [facility] Glucose, POC 139 70 - 199 mg/dL Blood 05/21/2024 8:55 PM [facility]ER [facility]ES 05/21/2024 8:55 PM [facility]ES Notinfile Unknown LAB POCT ORDERABLES - DEVICE F inal Result Performing Organization Address [facility] de Phone Number [place] [address] * Troponin I high-sensitivity 4-hour (05/21/2024 7:26 PM CHALKER SOLES) [facility] Trop I hs 4 <=17 ng/L Comment: Interpretive Data For further hscTnI resources including the diagnostic algorithm and an aid in interpretation, copy and paste this link: [email or web address] Current Interpretive Data last revised 2019. Trop I hs delta -1 ng/L [facility] Trop I hs interp Insignificant [facility] Blood 05/21/2024 7:26 PM [facility]ES 05/21/2024 7:37 PM [facility] Cira Castro MD LAB BLOOD ORDERABL ES Final Result Performing Organization Address [facility]/[place] [address] * Troponin I high-sensitivity series (baseline, 2hr, 4hr, 6hr) (05/21/2024 4:20 PM CHALKER SOLES) Trop I hs 5 <=17 ng/L Comment: Interpretive Data For further hscTnI resources including the diagnostic algorithm and an aid in interpretation, copy and paste this link: [email or web address]/[email or web address] Current Interpretive Data last revised 2019. Blood 05/21/2024 4:20 PM [facility] SOLES 05/21/2024 4:50 PM [facility]ES us Jimmie Zavala MD LAB BLOOD ORDERABLES Final Resul t Performing Organization Address [facility] Co de Phone Number [facility] [place] [address] * eGFR (05/21/2024 4:20 PM CHALKER SOLES) eGFR >90 >=60 mL/min/1. 73 m2 Comment: [...] last reviewed 2021. Blood 05/21/2024 4:20 PM [facility]ALK[facility] SOLES 05/21/2024 4:50 PM [facility]ALK[facility] SOLES us Jimmie Zavala MD LAB BLOOD ORDERABLES Final Resul t [facility] [place] [address] * (ABNORMAL) Differential, auto (05/21/2024 4:20 PM CHALKER SOLES) Neutrophil abs 8.0(H) 1.5 - 6.5 K/cumm Imm gran abs 0.0 0.0 - 0.1 K/cumm [facility] Lymphocyte abs 2.4 0.8 - 3.3 K/cumm [facility] Monocyte abs 0.8 0.2 - 0.8 K/cumm [facility] Eosinophil abs 0.2 0.0 - 0.5 K/cumm [facility] Basophil abs 0.0 0.0 - 0.1 K/cumm [facility] Neutrophil pct 69.4 % [facility] Comment: Interpretive Data Percent cell count reference ranges are not reported, since discordance with absolute values may lead to misinterpretation of CBC data. Current Interpretive Data was last revised on 2017. Imm gran pct 0.4 % [facility] Comment: Interpretive Data Percent cell count reference ranges are not reported, since discordance with absolute values may lead to misinterpretation of CBC data. Current Interpretive Data was last revised on 2017. Lymphocyte pct 21.4 % [facility] Comment: Interpretive Data Percent cell count reference ranges are not reported, since discordance with absolute values may lead to misinterpretation of CBC data. Current Interpretive Data was last revised on 2017. Monocyte pct 6.7 % [facility] Comment: Interpretive Data Percent cell count reference ranges are not reported, since discordance with absolute values may lead to misinterpretation of CBC data. Current Interpretive Data was last revised on 2017. Eosinophil pct 1.8 % [facility] Comment: Interpretive Data Percent cell count reference ranges are not reported, since discordance with absolute values may lead to misinterpretation of CBC data. Current Interpretive Data was last revised on 2017. Basophil pct 0.3 % [facility] Comment: Interpretive Data Percent cell count reference ranges are not reported, since discordance with absolute values may lead to misinterpretation of CBC data. Current Interpretive Data was last revised on 2017. Blood 05/21/2024 4:20 PM [facility] SOLES 05/21/2024 4:50 PM [facility]ES Jimmie Zavala MD LAB BLOOD ORDERABLES Final Resul t Performing Organization Address City/[facility]/ZIP Co de Phone Number [facility] Department [place] [address] * (ABNORMAL) CBC with auto differential (05/21/2024 4:20 PM CHALKER SOLES) Pathologist [facility] WBC 11.4(H) 3.8 - 9.9 K/cumm Hgb 14.0 11.9 - 15.5 g/dL [facility] Hct 43.6 35.6 - 45.5 % [facility] Plt 286 150 - 400 K/cumm [facility] MPV 9.9 9.1 - 12.3 fL [facility] RBC 4.83 3.90 - 5.20 M/cumm [facility] MCV 90.3 81.3 - 96.4 fL [facility] MCH 29.0 27.1 - 33.3 pg [facility] MCHC 32.1(L) 32.3 - 35.7 g/dL [facility] RDW CV 13.6 11.1 - 14.9 % [facility] RDW SD 45.6 35.7 - 48.1 fL [facility] NRBC abs 0.00 0.00 - 0.01 K/cumm [facility] Blood Venous blood specimen / Unknown 05/21/2024 4:20 PM [facility] SOLES 05/21/2024 4:50 PM [facility]ES us Jimmie Zavala MD LAB BLOOD ORDERABLES Final Resul t Performing Organization Address City/[facility]/ZIP Co de Phone Number [facility] Department [place] [address] * (ABNORMAL) Hemoglobin A1c (05/21/2024 4:20 PM [facility]ALKER SOLES) Hgb A1C 8.7(H) 4.0 - 5.6 % Estimated Average Glucose 203 mg/dL [facility] Comment: The ADA recommends reporting an estimated Average Glucose (eAG) with all Hemoglobin A1c results using the equation derived from a study of 507 normal and diabetic adults. Minority populations were underrepresented and children were not included. (Diabetes Care 2020; 43(S1): S66-S76). The eAG is not equivalent to a fasting glucose. Blood 05/21/2024 4:20 PM [facility] SOLES 05/21/2024 4:55 PM [facility]ES Leo Henry MD LAB BLOOD ORDERABLES Final Result [facility] Department [place] [address] * (ABNORMAL) Lipid panel (05/21/2024 4:20 PM CHALKER SOLES) Cholesterol 205(H) 30 - 199 mg/dL Comment: [...] 2017. Triglycerides 92 <=149 mg/dL [facility] Comment: Interpretive [...] revised on 2017. HDL 55 >=40 mg/dL [facility] Comment: Interpretive Data Ages < or [...] on 2017. LDL, calculated 134(H) <=129 mg/dL [facility] Comment: Interpretive Data Ages < or [...] revised on 2023. Non-HDL Cholesterol 150 mg/dL [facility] Comment: Interpretive Data Ages < or [...] last revised on 2017. Chol/HDL ratio 4 [facility] Blood 05/21/2024 4:20 PM [facility] SOLES 05/21/2024 4:50 PM [facility] SOLES Narrative [facility] 05/22/2024 4:17 PM [facility]ALK[facility] SOLES Reflex Leo Henry MD LAB BLOOD ORDERABLES Final Result [facility] Department [place] [address] * Comprehensive metabolic panel (05/21/2024 4:20 PM CHALKER SOLES) Sodium 140 135 - 145 mmol/L Potassium, pl 4.3 3.3 - 4.9 mmol/L [facility] Chloride 100 97 - 110 mmol/L [facility] CO2 29 22 - 32 mmol/L [facility] Anion gap 11 2 - 15 mmol/L [facility] BUN 14 6 - 25 mg/dL [facility] Creatinine 0.63 0.60 - 1.10 mg/dL [facility] Glucose 119 70 - 199 mg/dL [facility] Comment: Interpretive Data Fasting glucose [...] 2022. Calcium 10.0 8.5 - 10.3 mg/dL [facility] Bilirubin, total 0.7 0.1 - 1.2 mg/dL [facility] Protein, pl 8.5 6.5 - 8.5 g/dL [facility] Albumin 3.9 3.5 - 5.0 g/dL [facility] Alk phos 83 40 - 130 Units/L [facility] ALT 23 7 - 45 Units/L [facility] AST 22 10 - 45 Units/L [facility] Blood 05/21/2024 4:20 PM [facility] SOLES 05/21/2024 4:50 PM [facility] us Jimmie Zavala MD LAB BLOOD ORDERABLES Final Resul t [facility] Department [place] [address] * XR Chest Pa Lateral 2 Views (05/21/2024 2:23 PM [facility]ALKER SOLES) Anatomical Region Laterality Modality Body, Chest N/A Computed Radiogr aphy 05/21/2024 2:28 PM [facility]ES Impressions 05/21/2024 2:36 PM [facility]ALKER SOLES The current study is compared with the [...] Jaime Neves M.D. Narrative 05/21/2024 2:36 PM [facility] EXAMINATION: 2 view chest radiograph Procedure Note [...] Result * POCT glucose (05/21/2024 1:39 PM [facility]ALK[facility] SOLES) Glucose, POC 113 70 - 199 mg/dL Blood 05/21/2024 1:39 PM [facility]ALKER SOLES 05/21/2024 1:39 PM CHALKER SOLES us Notinfile Unknown LAB POCT ORDERABLES - DEVICE F inal Result [facility] Department [place] [address] * ECG 12-LEAD (05/21/2024 1:36 PM CHALKER SOLES) Narrative [facility] - 05/21/2024 1:36 PM [facility] SOLES Gil Mcgrath MD 05/21/2024 1:37 PM ECG [...] Zavala MD ECG ORDERABLES Final Result [facility] * US Axillary Breast Left (05/21/2024 12:13 PM CHALKER SOLES) Anatomical Region Laterality Modality Upper Extremities Left Ultrasound 05/21/2024 12:2 3 PM [facility]ES Impressions 05/21/2024 12:23 PM [facility] SOLES 1. Limited ultrasound due to extensive edema [...] Alicia Wilcox M.D. Narrative 05/21/2024 12:23 PM [facility]ES EXAMINATION: LEFT AXILLARY ULTRASOUND HISTORY: Patient is [...] culture Urine, clean voided (05/14/2024 4:50 PM [facility]ALKER SOLES) Color, ur Straw Yellow Clarity, ur Clear Clear [facility] Specific gravity, ur 1.025 1.003 - 1.030 [facility] pH, urine 5.5 [facility] Comment: Interpretive Data U rine pH is affected by diet, medications, systemic acid-base disturbances, and renal tubular function. pH may affect urinary stone formation. For example, urine pH below 6.0 may help reduce the tendency for calcium phosphate stones and pH greater than 6.0 may reduce the tendency for uric acid stone formation. Source: [employer] Current Interpretive Data was last revised on 2017 Protein, ur ql Trace Negative [facility] Glucose, ur ql Negative Negative [facility] Ketones, ur Negative Negative [facility] Bilirubin, ur Negative Negative [facility] Blood, ur Trace(A) Negative [facility] Urobilinogen, ur <2.0 <2.0 mg/dL [facility] Nitrite, ur Negative Negative [facility] Leukocyte esterase, ur Negative Negative [facility] UA reflex comment Reflex to microscopic UA will be performed. [facility] Urine, clean voided 05/14/2024 4:50 PM [facility]ALKER SOLES 05/14/2024 7:18 PM [facility] Khris Arthur MD LAB MICROBIOLOGY - G ENERAL ORDERABLES Final Result Performing Organization Address [facility] de Phone Number [facility] [place] [address] * (ABNORMAL) Urinalysis, microscopic only (05/14/2024 4:50 PM [facility] SOLES) WBC, ur 0-5 0 - 5 /HPF RBC, ur 0-2 0 - 2 /HPF [facility] Epithelial cells, squamous, ur 1-5 0 - 5 /HPF [facility] Bacteria, ur Trace(A) [facility] Mucous, ur Present(A) [facility] Culture Reflex Comment Reflex conditions for urine culture (WBC >10) not met. [facility] Urine, clean voided 05/14/2024 4:50 PM [facility]ES 05/14/2024 7:18 PM [facility]ES Khris Arthur MD LAB URINE ORDERABLES Final Result Performing Organization Address [facility] Co de Phone Number [facility] Department [place] [address] * XR Ribs Left 2 Views (05/14/2024 4:44 PM [facility]ER SOLES) Anatomical Region Laterality Modality Rib, Chest Left Digital Radiogra phy 05/14/2024 4:54 PM [facility]ES Impressions 05/14/2024 4:54 PM [facility]ES 1. No displaced left rib fracture. Electronically signed by: Jamshid Penny 05/14/2024 4:54 PM [facility]ES EXAMINATION: XR RIBS LEFT 2 VIEWS HISTORY: [...] Bone mineral density was performed on a [employer] Discovery Densitometer. Based on machine cross-calibration and [...] by the International Society of Clinical Densitometry. [id number] us Khris Arthur MD IMG DXA PROCEDURES [...] agrees with it. ACC# Date Time Exam [id number] Aug 19, 2016 14:27:00 [facility] [id number] Diag Mamm, inc CAD, unilat L Technologist(s): Carla Harris; ; [id number] Aug 19, 2016 15:39:00 [facility] 54571 Breast US unilateral, ltd L ACC# Date Time Exam [id number] Aug 19, 2016 14:27:00 C [id number] Diag Mamm, inc CAD, unilat L Technologist(s): Carla Harris; ; [id number] Aug 19, 2016 15:39:00 C 68630 Breast US unilateral, ltd L EXAMINATION: LEFT [...] SARABIA M.D. on Aug 19 2016 4:20P [id number] Procedure Note Miscellaneous, Not In File / Provider, MD Tyler - 09/17/2016 ANTHONY SARABIA M.D. JUDY RINCON M.D. FINAL REPORT The radiology attending physician has personally reviewed this study, and has reviewed and/or edited this written report and agrees with it. ACC# Date Time Exam [id number] Aug 19, 2016 14:27:00 [facility] 86461 Diag Mamm, inc CAD, unilat L Technologist(s): Carla Harris; ; [id number] Aug 19, 2016 15:39:00 [facility] [id number] Breast US unilateral, ltd L ACC# Date Time Exam [id number] Aug 19, 2016 14:27:00 C 64579 Diag Mamm, inc CAD, unilat L Technologist(s): Carla Harris; ; [id number] Aug 19, 2016 15:39:00 [facility] 85849 Breast US unilateral, ltd L EXAMINATION: LEFT [...] SARABIA M.D. on Aug 19 2016 4:20P [id number] us Not In File Miscellaneous IMG MAMMO PROCEDURES F inal Result from Last 3 Months or Most Recently Relevant to Health Maintenance Insurance [facility] MEDICARE ADVANTAGE [facility] MEDICARE ADVANTAGE Advance Directives For more information, please contact: [phone] Documents on File Type Date Recorded Patient Acoustical Tile Patternmaker Expl anation ADVANCE DIRECTIVE 12/23/2021 2:49 PM Power of Paper Sales Representative-Medical ADVANCE DIRECTIVE 12/23/2021 2:49 PM Living Will [...] First Alternate Health Care Agent Care Teams Electronics Parts Sales Representative Relationship Specialty Start Date End Date Justen Gale MD [address] [address] PCP - General 10/09/17 Liu Jerez MD Consulting Physician Gastroenterology 07/28/17 [place] [address] [facility] [address] [place] [address] Consulting Physician Pulmonary Disease 08/03/17 Khris Arthur MD [address] [facility] [address] [place] [address] Medical Oncologist/Hazardous Materials Tanker Driver Medical Oncology 10/23/17 [place] [address] [facility] [address] [place] [address] Surgeon Orthopedic Surgery 10/23/17 [place] [address] [facility] [address] [place] [address] Consulting Physician Pain Management 10/23/17 [place] [address] [facility] [address] [place] [address] Referring Physician General Surgery 01/26/18 [place] [address] [address] [facility] [address] [place] [address] Consulting Physician Neurology 01/26/18
--- OUTSIDE RECORDS SUMMARY | 2024-08-05 17:01 | XMS_ITS | Encounter Summary ---
Author Organization [facility] Address [address] [place] [address] Phone Care Team Providers Care Scaling Machine Operator Name Role Phone Justen Gale MD Primary Care Provider [phone] David Roberts APRN, SAW SHARPENER Unavailable [phone] Annel Rod MD Unavailable Reason for Visit * Reason Comments Medication Refill Encounter Details Date Type Department Care Team (Late st Contact Info) Description 07/06/2023 Refill [facility] - Family [facility] [address] [place] [id number] Justen Gale MD #[address] [address] Medication Refill Social History Tobacco Use Types [...] AM CDT Medication(s) [facility] Chronic Medication Refill Standing Order for Pediatricand [...] Dept 06/27/23 Office Visit Justen Gale MD [facility] 01/17/23 Office Visit Catrina Quiñonez MD [facility] Showing recent visits within past 270 [...] Description 08/12/2024 11:30 AM CDT Office Visit [facility] - Family Medicine - [place] [address] [place] [address] Angelito Alegria APRN, SAW SHARPENER #[address] [address] 09/18/2024 2:45 PM CDT Office Visit [facility] - Endocrinology - [place] [address] [place] [address] Annel Rod MD [address] [facility] [address] [place] [address] documented as of this encounter Visit Diagnoses Not on filedocumented in this encounter Additional Health Concerns Infection Onset Date Last Indicated Resolved Time COVID - 19 08/01/2024 08/01/2024 08/01/2024 3:20 PM CDT Assessment Noted Time PHQ-9 Depression Total Score: 8 01/18/20 2:24 PM CDT documented as of this encounter Care Teams Scaling Machine Operator Relationship Specialty Start Date End Date Justen Gale MD [address] [address] PCP - General Family Medicine 10/17/17 David Roberts, HEALTH INFORMATION MANAGEMENT DIRECTOR, SAW SHARPENER [facility] [facility] [place] [address] Nurse Practitioner Advanced Practice Nurse 01/31/22 Annel Rod MD [address] [address] Consulting Physician Endocrinology 07/01/22 documented as of this encounter
--- OUTSIDE RECORDS SUMMARY | 2024-08-05 17:01 | XMS_ITS | Encounter Summary ---
Author Organization [facility] Address [address] [place] [address] Phone Care Team Providers Care Eap Clinician Name Role Phone Justen Gale MD Primary Care Provider [phone] David Roberts APRN, TRESTLEMAN Unavailable [phone] Annel Rod MD Unavailable Reason for Visit * Reason Comments Medication Refill Encounter Details Date Type Department Care Team (Late st Contact Info) Description 08/07/2023 Refill [facility] - Endocrinology - [place] [address] [place] [address] Annel Rod MD #[address] [address] Medication Refill Social History Tobacco [...] Telephone Encounter - Jennifer Wang RN - 08/07/2023 11:09 AM CDT Medication(s) refilled and signed [facility] Chronic Medication Refill Standing Order for Pediatric and Adult Patients. documented in this encounter Plan of Treatment Upcoming Encounters Date Type Department Care Team (Late st Contact Info) Description 08/12/2024 11:30 AM CDT [facility] - Family Medicine - [place] [address] [place] [address] Angelito Alegria APRN, TRESTLEMAN #2 [facility] [address] [place] [address] 09/18/2024 2:45 PM CDT Office [facility] - Endocrinology - [place] #[address] [place] [address] Annel Rod MD #[address] [address] documented as of this encounter Visit Diagnoses Not on filedocumented in this encounter Additional Health Concerns Infection Onset Date Last Indicated Resolved Time COVID - 19 08/01/2024 08/01/2024 08/01/2024 3:20 PM CDT Assessment Noted Time PHQ-9 Depression Total Score: 8 01/18/20 23 2:24 PM CDT documented as of this encounter Care Teams Eap Clinician Relationship Specialty Start Date End Date Justen Gale MD #[address] [address] PCP - General Family Medicine 10/17/17 David Roberts APRN, NETTA #[address] [place] [address] Nurse Practitioner Advanced Practice Nurse 01/31/22 Annel Rod MD #[address] [facility] [address] [place] [address] Consulting Physician Endocrinology 07/01/22 documented as of this encounter
--- OUTSIDE RECORDS SUMMARY | 2024-08-05 17:01 | XMS_ITS | Encounter Summary ---
Author Organization [facility] Address [address] [place] [address] Phone Care Team Providers Care Global Logistics Analyst Name Role Phone Justen Gale MD Primary Care Provider [phone] David Roberts APRN, SCREWDOWN OPERATOR Unavailable [phone] Annel Rod MD Unavailable Reason for Visit * Reason Comments Medication Refill Encounter Details Date Type Department Care Team (Late st Contact Info) Description 09/30/2023 Refill [facility] - Endocrinology - [place] [address] [place] [address] Annel Rod MD #[address] [address] Medication Refill Social History Tobacco [...] Telephone Encounter - Jennifer Wang RN - 10/02/2023 9:27 AM CDT Medication(s) refilled and signed per [facility] Chronic Medication Refill Standing Order for Pediatric and Adult Patients. documented in this encounter Plan of Treatment Upcoming Encounters Date Type Department Care Team (Late st Contact Info) Description 08/12/2024 11:30 AM CDT Office Visit [facility] - Family Medicine - [place] #[address] [place] [address] Angelito Alegria APRN, SCREWDOWN OPERATOR #2 [facility] [address] [place] [address] 09/18/2024 2:45 PM CDT Office Visit [facility] - Endocrinology - [place] [address] [place] [address] Annel Rod MD #[address] [address] documented as of this encounter Visit Diagnoses Not on filedocumented in this encounter Additional Health Concerns Infection Onset Date Last Indicated Resolved Time COVID - 19 08/01/2024 08/01/2024 08/01/2024 3:20 PM CDT Assessment Noted Time PHQ-9 Depression Total Score: 8 01/18/20 23 2:24 PM CDT documented as of this encounter Care Teams Global Logistics Analyst Relationship Specialty Start Date End Date Justen Gale MD #[address] [address] PCP - General Family Medicine 10/17/17 David Roberts APRN, NETTA #[address] [place] [address] Nurse Practitioner Advanced Practice Nurse 01/31/22 Annel Rod MD #[address] [facility] [address] [place] [address] Consulting Physician Endocrinology 07/01/22 documented as of this encounter
--- OUTSIDE RECORDS SUMMARY | 2024-08-05 17:01 | XMS_ITS | Encounter Summary ---
Author Organization [facility] Address [address] [place] [address] Phone Care Team Providers Care Communication Equipment Mechanic Name Role Phone Jsuten Gale MD Primary Care Provider David Roberts APRN, ELECTROLOG OPERATOR Unavailable [phone] Annel Rod MD Unavailable Reason for Visit * Reason Comments Medication Refill Encounter Details Date Type Department Care Team (Late st Contact Info) Description 02/07/2023 Refill [facility] [address] [place] [address] Catrina Quiñonez MD #2 [place] [address] Medication Refill Social History Tobacco Use Types [...] Dept 01/17/23 Office Visit Catrina Quiñonez MD [facility] 09/16/22 Office Visit Pili Elkins APRN, CNP [facility] 07/05/22 Office Visit Pili Elkins APRN, CNP [facility] 05/02/22 Office Visit Justen Gale MD [facility] 03/03/22 Office Visit Pili Elkins APRN, NETTA [facility] Showing recent visits within past 365 days and meeting all other requirements Future Appointments No visits were found meeting these conditions. Showing future appointments within next 90 days and meeting all other requirements documented in this encounter Plan of Treatment Upcoming Encounters Date Type Department Care Team (Late st Contact Info) Description 08/12/2024 11:30 AM CDT Office Visit [facility] - Family Medicine - [place] [address] [place] [address] Angelito Alegria APRN, ELECTROLOG OPERATOR [address] [place] [address] 09/18/2024 2:45 PM CDT Office Visit [facility] - Endocrinology - [place] #[address] [facility] [address] Annel Rod MD #[address] [address] documented as of this encounter Visit Diagnoses Not on filedocumented in this encounter Additional Health Concerns Infection Onset Date Last Indicated Resolved Time COVID - 19 08/01/2024 08/01/2024 08/01/2024 3:20 PM CDT Assessment Noted Time PHQ-9 Depression Total Score: 8 01/18/20 2:24 PM CDT documented as of this encounter Care Teams Communication Equipment Mechanic Relationship Specialty Start Date End Date Justen Gale MD #[address] [address] PCP - General Family Medicine 10/17/17 David Roberts APRN, ELECTROLOG OPERATOR #2 [place] [address] Nurse Practitioner Advanced Practice Nurse 01/31/22 Annel Rod MD [address] [address] Consulting Physician Endocrinology 07/01/22 documented as of this encounter
--- OUTSIDE RECORDS SUMMARY | 2024-08-05 17:01 | XMS_ITS | Encounter Summary ---
Author Organization [facility] Address [address] [place] [address] Phone Care Team Providers Care Overcaster Name Role Phone Justen Gale MD Primary Care Provider [phone] David Roberts APRN, PODIATRY ASSISTANT Unavailable [phone] Annel Rod MD Unavailable Reason for Visit * Reason Comments Medication Refill Encounter Details Date Type Department Care Team (Late st Contact Info) Description 02/17/2021 Refill [facility] #2 [place] [id number] Justen Gale MD #[address] [address] Medication Refill Social History Tobacco Use Types [...] Mcgee 06/05/20 Office Visit Pili Elkins APRN, PODIATRY ASSISTANT [facility] Showing recent visits within past 365 days and meeting all other requirements Future Appointments Date Type Provider Dept 03/02/21 Appointment Vince Hermosillo MD [facility] Showing future appointments within next 90 days and meeting all other requirements documented in this encounter Plan of Treatment Upcoming Encounters Date Type Department Care Team (Late st Contact Info) Description 08/12/2024 11:30 AM CDT Office Visit [facility] Medical [facility] - Family Medicine [facility] #2 [facility] [place] [address] Angelito Alegria APRN, PODIATRY ASSISTANT #2 [facility] [address] [place] [address] 09/18/2024 2:45 PM CDT Office Visit [facility] Endocrinology [facility] #2 [place] [address] Annel Rod MD #2 [facility] [address] [place] [address] documented as of this encounter Visit Diagnoses Not on filedocumented in this encounter Additional Health Concerns Infection Onset Date Last Indicated Resolved Time COVID - 19 08/01/2024 08/01/2024 08/01/2024 3:20 PM CDT Assessment Noted Time PHQ-9 Depression Total Score: 0 07/21/19 3:00 PM CDT documented as of this encounter Care Teams Overcaster Relationship Specialty Start Date End Date Justen Gale MD #2 [facility] [address] [place] [address] PCP - General Family Medicine 10/17/17 David Roberts APRN, PODIATRY ASSISTANT #2 [facility] [place] [address] Nurse Practitioner Advanced Practice Nurse 01/31/22 Annel Rod MD #2 [place] [id number] Consulting Physician Endocrinology 07/01/22 documented as of this encounter
--- OUTSIDE RECORDS SUMMARY | 2024-08-05 17:45 | XMS_ITS | Encounter Summary ---
Author Organization [facility] Address [address] [place] [address] Phone Care Team Providers Care Splunk Architect Name Role Phone Justen Gale MD Primary Care Provider [phone] David Roberts APRN, CHEMICAL STRENGTH TESTER Unavailable [phone] Annel Rod MD Unavailable Reason for Visit * Reason Onset Date Comments Sore Throat 06/29/2020 Encounter Details Date Type Department Care Team (Late st Contact Info) Description 06/29/2020 Telephone [facility] #2 [place] [address] Justen Gale MD #[address] [address] Sore Throat Social History Tobacco Use Types [...] COVID-19? No / Unsure 06/29/2020 8:43 AM GEAR LAPPING MACHINE OPERATOR documented as of this encounter Miscellaneous Notes * Telephone Encounter - Gail Lucero RN - 06/29/2020 3:53 PM CST Attempted to call mailbox is full. Pt does not need testing LAPPING MACHINE OPERATOR * Telephone Encounter - Vince Hermosillo MD - 06/29/2020 3:13 PM CST No covid testing needed. If the er thought that it was warranted then they would have done this. LAPPING MACHINE OPERATOR * Telephone Encounter - Marlys Sorensen RN - 06/29/2020 8:36 AM CST Patient calling. Patient is calling to schedule Hospital/ED/Prompt-Care follow up appointment. Hospital/ED/Prompt-Care Site: [facility] ED Records Requested: Yes Reason for Hospitalization/ED/Prompt-Care [...] f/up and yearly PAP appointments? Please advise. LAPPING MACHINE OPERATOR documented in this encounter Plan of Treatment Upcoming Encounters Date Type Department Care Team (Late st Contact Info) Description 08/07/2024 8:30 AM CDT Office Visit [facility] - Family Medicine - [place] #2 [place] [address] Angelito Alegria APRN, NETTA #[address] [facility] [address] [place] [address] 09/18/2024 2:45 PM CDT Office Visit [facility] - Endocrinology - [place] #2 [place] [address] Annel Rod MD #[address] [facility] [address] [place] [address] documented as of this encounter Visit Diagnoses Not on filedocumented in this encounter Additional Health Concerns Infection Onset Date Last Indicated Resolved Time COVID - 19 08/01/2024 08/01/2024 08/01/2024 3:20 PM CDT Assessment Noted Time PHQ-9 Depression Total Score: 0 09/08/19 19 1:00 PM CDT documented as of this encounter Care Teams Splunk Architect Relationship Specialty Start Date End Date Justen Gale MD #[address] [facility] [address] [place] [address] PCP - General Family Medicine 10/17/17 David Roberts, BUNDLE SHAKER, CHEMICAL STRENGTH TESTER #2 [place] [address] Nurse Practitioner Advanced Practice Nurse 01/31/22 Annel Rod MD #[address] [facility] [address] [place] [address] Consulting Physician Endocrinology 07/01/22 documented as of this encounter
--- OUTSIDE RECORDS SUMMARY | 2024-08-05 17:45 | XMS_ITS ---
Author Organization [facility] Address [address] [place] [address] Care Team Providers Care Speech And Language Specialist Name Role Phone Liu Jerez MD Unavailable Albert Corbin MD Unavailable Justen Gale MD Primary Care Provider Khris Arthur MD Unavailable [phone] Ko Melendez MD Unavailable John Paul Moyer MD Unavailable Annel Rod MD Unavailable Anali MARSHALL MD, Carlos M. Unavailable [phone] Active Problems Problem Noted Date Diagnosed Date Urinary tract infection 05/22/2024 Assessment & Plan (05/26/2024 10:08 AM LOWER SCHOOL MUSIC TEACHER): Presenting with urinary symptoms of right flank [...] 05/22/2024 Assessment & Plan (05/25/2024 7:52 AM LOWER SCHOOL MUSIC TEACHER): Hx of breast cancer c/b DVT/bilateral Pes [...] 05/22/2024 Assessment & Plan (05/22/2024 1:14 PM LOWER SCHOOL MUSIC TEACHER): -long-standing chronic back pain -CT L spine [...] use of insulin ([facility]) 10/23/2017 Assessment & Plan (10/23/2017 2:06 [...] 10/13/2017 Assessment & Plan (05/22/2024 12:29 PM LOWER SCHOOL MUSIC TEACHER): -Hx stage II, ER positive, HER2 negative [...] 08/01/2017 Assessment & Plan (05/22/2024 12:33 PM LOWER SCHOOL MUSIC TEACHER): -Hx LUL -Hospital provided CPAP ordered History of DVT (deep vein thrombosis) 08/01/2017 History of pulmonary embolism 08/01/2017 Generalized weakness 07/27/2017 Dyspnea 07/27/2017 Unintentional weight loss 07/27/2017 Acute cystitis without hematuria 07/27/2017 Nausea and vomiting 07/26/2017 Overview (07/28/2017): Added automatically from request for surgery [id number] Pulmonary embolism 08/09/2016 Assessment & Plan (10/23/2017 2:05 AM CDT): On Rivaroxaban Lymphedema of left upper extremity 08/09/2016 Assessment & Plan (05/25/2024 7:53 AM LOWER SCHOOL MUSIC TEACHER): S/p L axillary lymph node dissection 2014, [...] syndrome Assessment & Plan (05/22/2024 11:18 AM LOWER SCHOOL MUSIC TEACHER): -continue home Requip 5mg nightly Pain of lower extremity 03/12/2013 Overview (07/29/2016): Leg pain Essential hypertension Assessment & Plan (05/23/2024 10:42 AM LOWER SCHOOL MUSIC TEACHER): -Chart history of HTN but not on meds -BP elevated on admission, likely some pain contributing -Monitor closely once pain under adequate control, discussed following up with PCP for this Chronic anticoagulation Restless leg syndrome 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
--- OUTSIDE RECORDS SUMMARY | 2024-08-05 17:46 | XMS_ITS | Encounter Summary ---
Author Organization [facility] Address [address] [place] [address] Phone Care Team Providers Care Telepathist Name Role Phone Justen Gale MD Primary Care Provider David Roberts APRN, SPORTS COMPLEX ATTENDANT Unavailable [phone] Annel Rod MD Unavailable Reason for Visit * Reason Comments Medication Refill Encounter Details Date Type Department Care Team (Late st Contact Info) Description 03/13/2021 Refill [facility] [address] [place] [address] Justen Gale MD #[address] [address] Medication Refill Social History Tobacco [...] COVID-19? No / Unsure 03/02/2021 5:05 PM SLATE MIXER documented as of this encounter Plan of Treatment Upcoming Encounters Date Type Department Care Team (Late st Contact Info) Description 08/07/2024 8:30 AM CDT Office Visit [facility] Family Medicine [facility] #2 [place] [address] Angelito Alegria, EMERGENCY VEHICLE OPERATIONS INSTRUCTOR, SPORTS COMPLEX ATTENDANT #2 [facility] [address] [place] [address] 09/18/2024 2:45 PM CDT Office Visit [facility] Endocrinology [facility] #2 [place] [address] Annel Rod MD #2 [facility] [address] [place] [address] documented as of this encounter Visit Diagnoses Not on filedocumented in this encounter Additional Health Concerns Infection Onset Date Last Indicated Resolved Time COVID - 19 08/01/2024 08/01/2024 08/01/2024 3:20 PM CDT Assessment Noted Time PHQ-9 Depression Total Score: 0 07/21/19 21 3:00 PM CDT documented as of this encounter Care Teams Telepathist Relationship Specialty Start Date End Date Justen Gale MD #2 [facility] [address] [place] [address] PCP - General Family Medicine 10/17/17 David Roberts APRN, SPORTS COMPLEX ATTENDANT #2 [place] [address] Nurse Practitioner Advanced Practice Nurse 01/31/22 Annel Rod MD #[address] [address] Consulting Physician Endocrinology 07/01/22 documented as of this encounter
--- OUTSIDE RECORDS SUMMARY | 2024-08-05 17:46 | XMS_ITS | Encounter Summary ---
Author Organization [facility] Address [address] [place] [address] Phone Care Team Providers Care Aluminizer Name Role Phone Justen Gale MD Primary Care Provider David Roberts APRN, CUSTOMER SUPPORT AGENT Unavailable [phone] Annel Rod MD Unavailable Encounter Details Date Type Department Care Team (Late st Contact Info) Description 06/05/2020 Lab [facility] 1 [place] [address] Pili Elkins APRN, CUSTOMER SUPPORT AGENT #[address] [address] Frequency of micturition Social History [...] COVID-19? No / Unsure 2020 11:37 AM MANAGER HARBOR documented as of this encounter Plan of Treatment Upcoming Encounters Date Type Department Care Team (Late st Contact Info) Description 08/07/2024 8:30 AM CDT Office Visit [facility] Medical [facility] - Family Medicine - [place] #2 [place] [address] Angelito Alegria APRN, CUSTOMER SUPPORT AGENT #2 [facility] [address] [place] [address] 09/18/2024 2:45 PM CDT Office Visit [facility] - Endocrinology - [place] #2 [place] [address] Annel Rod MD #2 [facility] [address] [place] [address] documented as of this encounter Procedures Procedure Name Priority Date/Time Associated Diagnosis Comments URINALYSIS REFLEX IF INDICATED BY ABNORMAL RESULTS Routine 06/05/2020 4:45 PM MANAGER HARBOR Frequency of micturition documented in this encounter Results * (ABNORMAL) URINALYSIS REFLEX IF INDICATED BY ABNORMAL RESULTS (06/05/2020 4:45 PM MANAGER HARBOR) SPECIFIC GRAVITY 1.020 1.003 - 1.030 06/05/2020 5:19 PM MANAGER HARBOR [facility] URINE PH 5.0 5.0 - 9.0 06/05/2020 5:19 PM MANAGER HARBOR [facility] WBC ESTERASE Negative Negative 06/05/2020 5:19 PM MANAGER HARBOR [facility] NITRITE Negative Negative 06/05/2020 5:19 PM MANAGER HARBOR [facility] PROTEIN, RANDOM URINE Negative Negative 06/05/2020 5:19 PM MANAGER HARBOR [facility] URINE GLUCOSE, QUAL Negative Negative 06/05/2020 5:19 PM MANAGER HARBOR [facility] URINE KETONES Negative Negative 06/05/2020 5:19 PM MANAGER HARBOR [facility] UROBILINOGEN Normal Normal mg/dL 06/05/2020 5:19 PM MANAGER HARBOR [facility] URINE BILIRUBIN Negative Negative 5:19 PM MANAGER HARBOR [facility] URINE BLOOD 25 /uL(A) Negative leandro/ul 06/05/2020 5:19 PM MANAGER HARBOR [facility] URINALYSIS COLOR Yellow 06/05/19 5:19 PM MANAGER HARBOR [facility] URINALYSIS CLARITY Clear 06/05/2020 5:19 PM MANAGER HARBOR [facility] WBC (Urine) 0-5 Negative, 0-5 /hpf 06/05/2020 5:19 PM MANAGER HARBOR [facility] URINE RBC'S 3-5(A) Negative, 0-2 /hpf 06/05/2020 5:19 PM MANAGER HARBOR [facility] EPITHELIAL CELLS Small amount /lpf 2020 5:19 PM MANAGER HARBOR [facility] BACTERIA, URINE Few(A) Negative /hpf 06/05/2020 5:19 PM MANAGER HARBOR [facility] Urine URINE SPECIMEN / Unknown Non-Phlebotomy Collection / Unknown 06/05/2020 4:45 PM MANAGER HARBOR 06/05/2020 5:00 PM MANAGER HARBOR us Pili Elkins GOVERNMENT AUDITOR, CUSTOMER SUPPORT AGENT URINE ORDERABLES Fin al Result [facility] #1 [place] [address] documented in this encounter Visit Diagnoses Diagnosis Frequency of micturition Urinary frequency documented in this encounter Additional Health Concerns Infection Onset Date Last Indicated Resolved Time COVID - 19 08/01/2024 08/01/2024 08/01/2024 3:20 PM CDT Assessment Noted Time PHQ-9 Depression Total Score: 0 09/08/19 19 1:00 PM CDT documented as of this encounter Care Teams Aluminizer Relationship Specialty Start Date End Date Justen Gale MD #2 [facility] [address] [place] [address] PCP - General Family Medicine 10/17/17 David Roberts, GOVERNMENT AUDITOR, CUSTOMER SUPPORT AGENT #2 [place] [address] Nurse Practitioner Advanced Practice Nurse 01/31/22 Annel Rod MD #2 [facility] [address] [place] [address] Consulting Physician Endocrinology 07/01/22 documented as of this encounter
--- OUTSIDE RECORDS SUMMARY | 2024-08-05 17:46 | XMS_ITS | Encounter Summary ---
Author Organization [facility] Address [address] [place] [address] Phone Care Team Providers Care Director And Professor Name Role Phone Justen Gale MD Primary Care Provider David Roberts APRN, LAB ANIMAL TECHNICIAN Unavailable [phone] Annel Rod MD Unavailable Reason for Visit * Reason Comments Medication Refill Encounter Details Date Type Department Care Team (Late st Contact Info) Description 02/07/2020 Refill [facility] [address] [place] [address] Justen Gale MD #[address] [address] Medication Refill Social History Tobacco Use Types [...] Description 08/07/2024 8:30 AM CDT Office Visit [facility] - Family Medicine - [place] #2 [place] [address] Angelito Alegria APRN, NETTA #[address] [address] 09/18/2024 2:45 PM CDT Office Visit [facility] - Endocrinology - [place] #2 [place] [address] Annel Rod MD #[address] [address] documented as of this encounter Visit Diagnoses Not on filedocumented in this encounter Additional Health Concerns Infection Onset Date Last Indicated Resolved Time COVID - 19 08/01/2024 08/01/2024 08/01/2024 3:20 PM CDT Assessment Noted Time PHQ-9 Depression Total Score: 0 09/08/19 19 1:00 PM CDT documented as of this encounter Care Teams Director And Professor Relationship Specialty Start Date End Date Justen Gale MD #[address] [place] [address] PCP - General Family Medicine 10/17/17 David Roberts APRN, NETTA #2 [place] [address] Nurse Practitioner Advanced Practice Nurse 01/31/22 Annel Rod MD #[address] [address] [address] Consulting Physician Endocrinology 07/01/22 documented as of this encounter
--- OUTSIDE RECORDS SUMMARY | 2024-08-05 17:46 | XMS_ITS | Clinical Summary ---
Author Organization [facility] Address [address] [place] [address] Phone Care Team Providers Care Field Artillery Cannoneer Name Role Phone Justen Gale MD Primary Care Provider [phone] Allergies Active Allergy Reactions Criticality Noted Date [...] - 6.0 % 09/29/2017 10:28 AM CDT [facility] EST. AVG GLUCOSE, A1C 186 mg/dL 09/29/2017 10:28 AM CDT [employer] [facility] Blood Venipuncture / Unknown 09/28/2017 8:41 PM CDT 09/28/2017 8:46 PM CDT Narrative [facility] - 09/29/2017 10:28 AM CDT HGB A1C INTERPRETATION NORMAL: <5.7% PRE-DIABETES: 5.7 - 6.4% DIABETES: 6.5% OR GREATER us Francisco Castaneda MD CHEMISTRY ORDERABLES Final Resul t [facility] [employer] [facility]# [id number] [address] [facility] [place] [address] * (ABNORMAL) LIPID PANEL (09/28/2017 8:41 PM CDT) CHOLESTEROL 174 <200 mg/dL 09/30/2017 2:45 AM CDT [facility] [facility] TRIGLYCERIDE 109 <150 mg/dL 09/30/2017 2:45 AM CDT [facility] [facility] HDL 45 40 - 59 mg/dL 09/30/2017 2:45 AM CDT [facility] [facility] LDL CALCULATED 107(H) <100 mg/dL 09/30/2017 2:45 AM CDT [facility] [employer] [facility] NON-HDL CHOLESTEROL 129 <130 mg/dL 09/30/2017 2:45 AM CDT [facility] [employer] [facility] Blood Venipuncture / Unknown 09/28/2017 8:41 PM CDT 09/28/2017 8:46 PM CDT Narrative [facility] - 09/30/2017 2:45 AM CDT TOTAL CHOLESTEROL [...] Castaneda MD CHEMISTRY ORDERABLES Final Resul t [facility]# [id number] [address] [facility] [facility] [place] [address] from Last 3 Months or Most Recently Relevant to Health Maintenance Insurance Advance Directives For more information, please contact: [phone] * Full Code (Latest Code Status on File) Date Activated Date Inactivated Comments 09/29/2017 7:45 AM 09/30/2017 9:14 PM * Full Code Date Activated Date Inactivated Comments 09/29/2017 1:25 AM 09/29/2017 7:45 AM Care Teams Field Artillery Cannoneer Relationship Specialty Start Date End Date Justen Gale MD [address] [facility] [address] [place] [address] PCP - General Cardiovascular Disease 09/14/17
--- OUTSIDE RECORDS SUMMARY | 2024-08-05 17:46 | XMS_ITS | Encounter Summary ---
Author Organization [facility] Address [address] [place] [address] Phone Care Team Providers Care Roller Maker Name Role Phone Justen Gale MD Primary Care Provider [phone] David Roberts APRN, DEMAND EQUIPMENT REPAIRER Unavailable [phone] Annel Rod MD Unavailable Reason for Visit * Reason Onset Date Comments Medication Refill 08/06/2020 Encounter Details Date Type Department Care Team (Late st Contact Info) Description 08/06/2020 Refill [facility] #2 [facility] [place] [address] Justen Gale MD #[address] [address] Medication Refill Social History Tobacco Use Types [...] Outpatient Visits 2 weeks ago [facility] Pili Mueller APN, DEMAND EQUIPMENT REPAIRER 2 months ago Increased urinary frequency [facility] Pili Mueller APN, DEMAND EQUIPMENT REPAIRER 5 months ago Urinary frequency [facility] Pili Mueller APN, DEMAND EQUIPMENT REPAIRER 8 months ago Type 2 diabetes mellitus with diabetic polyneuropathy, with long- term current use of insulin (HCC) [facility] Pili Mueller APN, DEMAND EQUIPMENT REPAIRER 9 months ago [facility] Justen Urbano MD Upcoming Appointments Future Appointments In 6 days Pili Elkins APN, DEMAND EQUIPMENT REPAIRER [facility] CLIENT ADVOCATE - Recent and Past Visits Recent Visits Date Type Provider Dept 07/20/20 Office Visit Pili Elkins APN, DEMAND EQUIPMENT REPAIRER [facility] 06/05/20 Office Visit Pili Elkins APN, NETTA [facility] 02/17/20 Office Visit Pili Elkins APN, NETTA [facility] 12/03/19 Office Visit Pili Elkins APN, NETTA [facility] 11/05/19 Telemedicine Justen Gale MD [facility] 07/25/19 Telemedicine [facility] recent visits within past 460 days [...] Description 08/07/2024 8:30 AM CDT Office Visit [facility] Medical [facility] - Family Medicine - [place] #2 [place] [address] Angelito Alegria APRN, CNP #[address] [address] 09/18/2024 2:45 PM CDT Office Visit [facility] - Endocrinology - [place] #2 [place] [address] Annel Rod MD #2 [facility] [address] [place] [address] documented as of this encounter Visit Diagnoses Not on filedocumented in this encounter Additional Health Concerns Infection Onset Date Last Indicated Resolved Time COVID - 19 08/01/2024 08/01/2024 08/01/2024 3:20 PM CDT Assessment Noted Time PHQ-9 Depression Total Score: 0 07/21/19 21 3:00 PM CDT documented as of this encounter Care Teams Roller Maker Relationship Specialty Start Date End Date Justen Gale MD #2 [facility] [address] [place] [address] PCP - General Family Medicine 10/17/17 David Roberts APRN, DEMAND EQUIPMENT REPAIRER #2 [place] [address] Nurse Practitioner Advanced Practice Nurse 01/31/22 Annel Rod MD #[address] [address] Consulting Physician Endocrinology 07/01/22 documented as of this encounter
--- OUTSIDE RECORDS SUMMARY | 2024-08-05 17:46 | XMS_ITS | Clinical Summary ---
Author Organization [facility] Address [address] [place] [address] Care Team Providers Care Vibration Engineer Name Role Phone Justen Gale MD Primary Care Provider [phone] Source Comments [facility] Affiliates and Associated Physician Practices is amultiple site organization consisting of ambulatory clinics and hospital sitesin [place], [place], [place] and [place]. This disclosure is being madepursuant to the Care Everywhere program and may not contain all information available regarding this patient. Last updated 18.[facility] [employer] Allergies Active Allergy Reactions Criticality Noted Date [...] Gluc Sensor (FreeStyle Eileen 2 Sensor Systm) [facility] [place] 1 SENSOR AND WEAR FOR 14 [...] medical care, and heating? Somewhat hard 05/16/2023 [facility] [place] of Occupat ional Health - Occupational Stress [...] in a correction (including now)? 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 Gender Identity Not on file [...] this topic Medical Devices Implanted Type Area Private Watchman Device Identifier Shelf Expiration Date Model / Serial / Lot Lead Nrstm 60cm Penta 3mm Pdl 16 Chnl Implanted:Qt y: 1 on 09/16/2021 by Maxi Gregg MD at [facility] Right: Spine Thoracic [employer] [id number] / / Description:JJ Slnt Dura Duraseal Pg Trilysine Amine 5 Implanted:Qt y: 1 on 09/16/2021 by Maxi Gregg MD at [facility] Right: Spine Thoracic [employer] David [id number] / / Description:JJ Proclaim Plus 5 Implanted:Qt y: 1 on 02/16/2023 by Maxi Gregg MD at [facility] Left: Back Cardenas Spine [id number] 11/07/2024 [id number] / [id number] / Explanted Type Area Private Watchman Device Identifier Shelf Expiration Date Model / Serial / Lot Gntr Nrstm [id number] Proclaim Elt Implanted:Qty: 1 on 09/16/2021 by Maxi Gregg MD at [facility] Explanted:Qty: 1 on 10/30/2021 by Maxi Gregg MD at [facility] Right: Spine Thoracic [employer] [...] - 26 mg/dL 07/30/2023 2:31 AM CDT [facility] Creatinine 0.67 0.56 - 0.96 mg/dL 07/30/2023 2:31 AM CDT [facility] Sodium 136 136 - 145 mmol/L 07/30/2023 2:31 AM CDT [facility] Potassium 4.4 3.5 - 4.5 mmol/L 07/30/2023 2:31 AM [facility] Chloride 101 98 - 107 mmol/L 07/30/2023 2:31 AM [facility] CO2 27 22 - 29 mmol/L 07/30/2023 2:31 AM [facility] Glucose 238(H) 70 - 115 mg/dL 07/30/2023 2:31 AM [facility] Albumin 2.9(L) 3.4 - 5.0 g/dL 07/30/2023 2:31 AM [facility] Calcium 9.4 8.4 - 10.2 mg/dL 07/30/2023 2:31 AM [facility] Phosphorus 3.0 2.9 - 5.1 mg/dL 07/30/2023 2:31 AM [facility] Anion Gap 8 6 - 16 07/30/2023 2:31 AM [facility] BUN/Creatinine Ratio 30(H) 7 - 23 07/30/2023 2:31 AM [facility] Osmolality Calculated 292 275 - 295 mOsm/kg 07/30/2023 2:31 AM [facility] eGFR by CKD-EPI >90 >=90 mL/min/1.7 3 m2 07/30/2023 2:31 AM [facility] Blood BLOOD SPECIMEN / Unknown Lab Venipuncture / Unknown 07/30/2023 1:28 AM CDT 07/30/2023 2:04 AM T Brian Bravo MD LAB - CHEMISTRY ORDERABLES F inal Result [facility] [address] [place] [address], [facility] [phone] * HEPATITIS C AB SCREEN RFLX NAAT QUANT (02/21/2023 6:30 PM CDT) Hepatitis C Antibody Non-react hugh Non-reac tive 02/21/2023 7:32 PM [facility] Comment:Hepatitis C Antibody screen indicates no [...] ORDERABLES Fi nal Result Performing Organization Address City/[facility]/ZIP Co de Phone Number [facility] [address] [place] [address], [place] [phone] * (ABNORMAL) HEMOGLOBIN A1C (12/25/2022 3:56 AM CDT) Hemoglobin A1c 8.6(H) <=5.6 % 12/25/2022 2:47 PM CDT [facility] Estimated Average Glucose 200 mg/dL 12/25/2022 2:47 PM CDT [facility] Comment: HbA1c Interpretation: Normal : < 5.7% Pre-diabetes: 5.7-6.4% Diabetes: Equal to or greater than 6.5% Test results diagnostic of diabetes should be repeated for confirmation. Treatment target values recommended by ADA and other clinical organizations should be used to evaluate metabolic control in patients. Reference: [place] Diabetes Association, Standards of Care in Diabetes [...] LAB - CHEMISTRY ORDERA BLES Final Result [facility] [address] [place] [id number], [place] [phone] from Last 3 Months or Most Recently [...] 3:37 AM 03/23/2023 7:14 PM Care Teams Vibration Engineer Relationship Specialty Start Date End Date Justen Gale MD PCP - General 07/05/21
--- OUTSIDE RECORDS SUMMARY | 2024-08-05 17:46 | XMS_ITS | Encounter Summary ---
Author Organization [facility] Address [address] [place] [address] Phone Care Team Providers Care Middleware Systems Architect Name Role Phone Justen Gale MD Primary Care Provider [phone] David Roberts APRN, HIGH SCHOOL ASSISTANT PRINCIPAL Unavailable [phone] Annel Rod MD Unavailable Reason for Visit * Reason Comments Medication Refill Encounter Details Date Type Department Care Team (Late st Contact Info) Description 02/17/2021 Refill [facility] - Family [facility] [address] [place] [id number] Justen Gale MD [address] [address] Medication Refill Social History Tobacco Use Types [...] Mcgee 06/05/20 Office Visit Pili Elkins APRN, HIGH SCHOOL ASSISTANT PRINCIPAL [facility] Showing recent visits within past 365 days and meeting all other requirements Future Appointments Date Type Provider Dept 03/02/21 Appointment Vince Hermosillo MD [facility] Showing future appointments within next 90 days and meeting all other requirements documented in this encounter Plan of Treatment Upcoming Encounters Date Type Department Care Team (Late st Contact Info) Description 08/07/2024 8:30 AM CDT Office Visit [facility] Medical [facility] - Family Medicine [facility] [address] [place] [address] Angelito Alegria APRN, HIGH SCHOOL ASSISTANT PRINCIPAL [address] [facility] [address] [place] [address] 09/18/2024 2:45 PM CDT Office Visit [facility] Endocrinology [facility] [address] [place] [address] Annel Rod MD [address] [facility] [address] [place] [address] documented as of this encounter Visit Diagnoses Not on filedocumented in this encounter Additional Health Concerns Infection Onset Date Last Indicated Resolved Time COVID - 19 08/01/2024 08/01/2024 08/01/2024 3:20 PM CDT Assessment Noted Time PHQ-9 Depression Total Score: 0 07/21/19 3:00 PM CDT documented as of this encounter Care Teams Middleware Systems Architect Relationship Specialty Start Date End Date Justen Gale MD [address] [facility] [address] [place] [address] PCP - General Family Medicine 10/17/17 David Roberts APRN, HIGH SCHOOL ASSISTANT PRINCIPAL [address] [facility] [place] [address] Nurse Practitioner Advanced Practice Nurse 01/31/22 Annel Rod MD [address] [place] [phone] Consulting Physician Endocrinology 07/01/22 documented as of this encounter
--- OUTSIDE RECORDS SUMMARY | 2024-08-05 17:46 | XMS_ITS ---
Author Organization [facility] Address [address] [place] [address] Care Team Providers Care Fabric Worker Name Role Phone Justen Gale MD Primary Care Provider [phone] Active Problems Problem Noted Date Diagnosed Date [...]
--- OUTSIDE RECORDS SUMMARY | 2024-08-05 17:46 | XMS_ITS | CONTINUITY OF CARE DOCUMENT ---
Author Name ayesha, ayesha Address Unknown Organization [facility] Address [address] [place] [address] Phone [phone] Care Team Providers Care Children'S Lunchroom Supervisor Name Role Phone Yamilet DURÁN, Maico Unavailable [phone] ALANIS DURÁN, BRIDGETT Unavailable ALLISON DURÁN, CLARISSE Unavailable [phone] PROBLEMS Condition Status Date Provider Notes Shortness of breath active Ivory Rodriguez Palpitations active Radha Seals INSURANCE PROVIDERS Payer name Policy type / Coverage type [place] green party ID UHC MEDICARE COMPLETE HMO Other [id number] Medicaid 2 [id number] HISTORY OF PROCEDURES Procedure Date Procedure Name Provider Procedure Notes S tatus Stress EKG Carmine Silverio MD complet ed Regadenoson, 4 units Sergey Saldana MD completed Cardiolite, 2 units Sergey Saldana MD completed SPECT Images Carmine Silverio MD compl eted Holter, 24 or 48 Maico Woodard MD co mpleted
--- OUTSIDE RECORDS SUMMARY | 2024-08-05 17:46 | XMS_ITS | Referral Summary ---
Author Organization [facility] Address [address] [place] [id number] Care Team Providers Care Director Of Cardiology Name Role Phone Liu Jerez MD Unavailable Albert Corbin MD Unavailable Justen Gale MD Primary Care Provider Khris Arthur MD Unavailable [phone] Ko Melendez MD Unavailable John Paul Moyer MD Unavailable Annel Rod MD Unavailable Anali MARSHALL MD, Carlos M. Unavailable [phone] Encounters Date Type Department Care Team Description 07/01/2024 8:52 PM CDT - 07/01/2024 10:18 PM CDT Emergency [facility] Emergency Department [address] [place] [address] Myalgia (Primary Dx); Viral syndrome Discharge Disposition: Discharge to home or self care 05/30/2024 Orders Only [facility] [address] [facility] [address] [place] [address] Radha Mcgrath RN Lymphedema of left arm (Primary Dx); Malignant neoplasm of upper-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, unspecified estrogen receptor status (HCC); Malignant neoplasm of overlapping sites of left female breast, unspecified estrogen receptor status (HCC); Malignant neoplasm of female breast, unspecified estrogen receptor status, unspecified laterality, unspecified site of breast (HCC) 05/21/2024 9:12 PM GAUGE AND WEIGH MACHINE ADJUSTER - 05/26/2024 6:45 PM GAUGE AND WEIGH MACHINE ADJUSTER Hospital Encounter [address] [address] Jimmie Zavala MD Liss, MD Ra Parnell, MD Sebastian Claros, MD Carlos Left arm pain (Primary Dx); Left leg pain; Shortness of breath; Urinary tract infection without hematuria, site unspecified; Allergy to drug Discharge Disposition: Discharge to home or self care 05/24/2024 Telephone [facility] [address] [place] [address] Radha Warner RN 05/23/2024 8:10 AM GAUGE AND WEIGH MACHINE ADJUSTER Ancillary Procedure [facility] IP [address] [facility] [address] [place] [address] 05/21/2024 12:58 PM GAUGE AND WEIGH MACHINE ADJUSTER - 05/21/2024 11:59 PM GAUGE AND WEIGH MACHINE ADJUSTER Hospital Encounter AMBULANCE BILLING [address] [place] [address] Discharge Disposition: Discharge to home or self care 05/21/2024 11:00 AM GAUGE AND WEIGH MACHINE ADJUSTER - 05/21/2024 11:59 PM GAUGE AND WEIGH MACHINE ADJUSTER Hospital Encounter [facility] [address] [place] [address] Floor 8 [place] [address] History of breast cancer; Axillary pain, left Discharge Disposition: Discharge to home or self care 05/16/2024 Telephone [facility] [address] [place] [address] 8 [place] [address] Jeanine Ba RMA 05/16/2024 Orders Only [facility] [address] [place] [address] 8 [place] [address] Radha Mcgrath RN History of breast cancer (Primary Dx); Axillary pain, left 05/16/2024 Orders Only [facility] [address] [place] [address] 8 [place] [address] Khris Arthur MD Swelling of left upper extremity (Primary Dx); Swelling of left lower extremity 05/14/2024 4:45 PM GAUGE AND WEIGH MACHINE ADJUSTER Lab [facility] - Lab Collection [address] [place] [address] 5 [place] [address] Malignant neoplasm of upper-inner quadrant of left breast in female, estrogen receptor positive (HCC) 05/14/2024 4:36 PM GAUGE AND WEIGH MACHINE ADJUSTER - 05/14/2024 11:59 PM GAUGE AND WEIGH MACHINE ADJUSTER Hospital Encounter [facility] - Diagnostic Imaging [address] [place] [address] 8 [place] [address] Malignant neoplasm of upper-inner quadrant of left breast in female, estrogen receptor positive (HCC) Discharge Disposition: Discharge to home or self care 05/14/2024 4:00 PM GAUGE AND WEIGH MACHINE ADJUSTER Lab [facility] [address] [place] [address] 5 [place] [address] Malignant neoplasm of upper-inner quadrant of left breast in female, estrogen receptor positive (HCC) 05/14/2024 3:30 PM GAUGE AND WEIGH MACHINE ADJUSTER Office Visit [facility] [address] [place] [address] 8 [place] [address] Krhis Arthur MD Swelling of right lower extremity [...] Taken at 2100 Active blood glucose diagnostic (WhoisEDIuch Ultra Test) strip 4 (four) times a [...] 05/22/2024 Assessment & Plan (05/26/2024 10:08 AM GAUGE AND WEIGH MACHINE ADJUSTER): Presenting with urinary symptoms of right flank [...] 3 doses q48 hours -Previously followed with [facility] Urology, but lost to follow up when her Urologist left the practice, outpatient urology follow up placed - good pain control w/Dilaudid, continue prn Venous thromboembolism (VTE) 05/22/2024 Assessment & Plan (05/25/2024 7:52 AM GAUGE AND WEIGH MACHINE ADJUSTER): Hx of breast cancer c/b DVT/bilateral Pes [...] 05/22/2024 Assessment & Plan (05/22/2024 1:14 PM GAUGE AND WEIGH MACHINE ADJUSTER): -long-standing chronic back pain -CT L spine [...] 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) 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 10/17/2019 [...] without long-term current use of insulin ([facility]) 10/23/2017 Assessment & Plan (10/23/2017 2:06 AM [...] 10/13/2017 Assessment & Plan (05/22/2024 12:29 PM GAUGE AND WEIGH MACHINE ADJUSTER): -Hx stage II, ER positive, HER2 negative [...] 08/01/2017 Assessment & Plan (05/22/2024 12:33 PM GAUGE AND WEIGH MACHINE ADJUSTER): -Hx LUL -Hospital provided CPAP ordered History of DVT (deep vein thrombosis) 08/01/2017 History of pulmonary embolism 08/01/2017 Generalized weakness 07/27/2017 Dyspnea 07/27/2017 Unintentional weight loss 07/27/2017 Acute cystitis without hematuria 07/27/2017 Nausea and vomiting 07/26/2017 Overview (07/28/2017): Added automatically from request for surgery [id number] Pulmonary embolism 08/09/2016 Assessment & Plan (10/23/2017 2:05 AM CDT): On Rivaroxaban Lymphedema of left upper extremity 08/09/2016 Assessment & Plan (05/25/2024 7:53 AM GAUGE AND WEIGH MACHINE ADJUSTER): S/p L axillary lymph node dissection 2014, [...] syndrome Assessment & Plan (05/22/2024 11:18 AM GAUGE AND WEIGH MACHINE ADJUSTER): -continue home Requip 5mg nightly Pain of lower extremity 03/12/2013 Overview (07/29/2016): Leg pain Essential hypertension Assessment & Plan (05/23/2024 10:42 AM GAUGE AND WEIGH MACHINE ADJUSTER): -Chart history of HTN but not on meds -BP elevated on admission, likely some pain contributing -Monitor closely once pain under adequate control, discussed following up with PCP for this Chronic anticoagulation Restless leg syndrome 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 Type 2 diabetes mellitus without complication Assessment & Plan (05/24/2024 1:39 PM GAUGE AND WEIGH MACHINE ADJUSTER): -Last Ha1c 8.4 in 2023, repeat 8.7 [...] drink = 0.6 oz pur e alcohol) [facility] Utilities Answer Date Recorded In the past 12 months has [employer], gas, oil, or water [employer] threatened to shut off services in your [...] often do you attend chur ch or religion services? More than 4 times per year 05/24/2024 Do you belong to any clubs o r organizations such as orthodoxy groups, unions, fraternal or athletic groups, or [...] in a penitentiary (including now)? No 08/15/2023 Housing Stability Vital Sign Answer [place] e Recorded In the last 12 months, was t here a time when you were not able to pay the mortgage or rent on time? No 05/24/2024 In the past 12 months, how m any times have you moved where you were living? 0 05/24/2024 At any time in the past 12 [facility], were you homeless or living in a penitentiary (including now)? No 05/24/2024 Personal Safety Answer Date Recorded Have you ever been in or are you currently in a harmful physical or emotional relationship or is someone making you feel afraid or unsafe? Denies 07/01/2024 Comments No Sex and Gender Information Value Date Recorded Sex Assigned at Not on file Legal Sex Female 12:24 AM GAUGE AND WEIGH MACHINE ADJUSTER Gender Identity Not on file Sexual [...] GLUCOSE DEVICE Routine 05/26/2024 4 :27 PM GAUGE AND WEIGH MACHINE ADJUSTER POCT GLUCOSE DEVICE Routine 05/26/2024 1 1:38 AM GAUGE AND WEIGH MACHINE ADJUSTER POCT GLUCOSE DEVICE Routine 05/26/2024 8 :12 AM GAUGE AND WEIGH MACHINE ADJUSTER EGFR Routine 05/26/2024 12:05 AM GAUGE AND WEIGH MACHINE ADJUSTER DIFFERENTIAL AUTO Routine 05/26/2024 12: 05 AM GAUGE AND WEIGH MACHINE ADJUSTER PHOSPHORUS Routine 05/26/2024 12:05 AM GAUGE AND WEIGH MACHINE ADJUSTER COMPREHENSIVE METABOLIC PANEL Routine 05/26/2024 12:05 AM GAUGE AND WEIGH MACHINE ADJUSTER MAGNESIUM Routine 05/26/2024 12:05 AM GAUGE AND WEIGH MACHINE ADJUSTER CBC WITH AUTO DIFFERENTIAL Routine 05/26/2024 12:05 AM GAUGE AND WEIGH MACHINE ADJUSTER POCT GLUCOSE DEVICE Routine 05/25/2024 7 :44 PM GAUGE AND WEIGH MACHINE ADJUSTER POCT GLUCOSE DEVICE Routine 05/25/2024 5 :24 PM GAUGE AND WEIGH MACHINE ADJUSTER POCT GLUCOSE DEVICE Routine 05/25/2024 1 1:37 AM GAUGE AND WEIGH MACHINE ADJUSTER POCT GLUCOSE DEVICE Routine 05/25/2024 7 :27 AM GAUGE AND WEIGH MACHINE ADJUSTER EGFR Routine 05/25/2024 12:20 AM GAUGE AND WEIGH MACHINE ADJUSTER DIFFERENTIAL AUTO Routine 05/25/2024 12: 20 AM GAUGE AND WEIGH MACHINE ADJUSTER PHOSPHORUS Routine 05/25/2024 12:20 AM GAUGE AND WEIGH MACHINE ADJUSTER COMPREHENSIVE METABOLIC PANEL Routine 05/25/2024 12:20 AM GAUGE AND WEIGH MACHINE ADJUSTER MAGNESIUM Routine 05/25/2024 12:20 AM GAUGE AND WEIGH MACHINE ADJUSTER CBC WITH AUTO DIFFERENTIAL Routine 05/25/2024 12:20 AM GAUGE AND WEIGH MACHINE ADJUSTER POCT GLUCOSE DEVICE Routine 05/24/2024 8 :13 PM GAUGE AND WEIGH MACHINE ADJUSTER POCT GLUCOSE DEVICE Routine 05/24/2024 5 :17 PM GAUGE AND WEIGH MACHINE ADJUSTER POCT GLUCOSE DEVICE Routine 05/24/2024 1 2:49 PM GAUGE AND WEIGH MACHINE ADJUSTER POCT GLUCOSE DEVICE Routine 05/24/2024 9 :22 AM GAUGE AND WEIGH MACHINE ADJUSTER HERPES SIMPLEX VIRUS (HSV) PCR Routine 05/24/2024 8:47 AM GAUGE AND WEIGH MACHINE ADJUSTER POCT GLUCOSE DEVICE Routine 05/24/2024 8 :22 AM GAUGE AND WEIGH MACHINE ADJUSTER EGFR Routine 05/24/2024 12:29 AM GAUGE AND WEIGH MACHINE ADJUSTER DIFFERENTIAL AUTO Routine 05/24/2024 12: 29 AM GAUGE AND WEIGH MACHINE ADJUSTER PHOSPHORUS Routine 05/24/2024 12:29 AM GAUGE AND WEIGH MACHINE ADJUSTER COMPREHENSIVE METABOLIC PANEL Routine 05/24/2024 12:29 AM GAUGE AND WEIGH MACHINE ADJUSTER MAGNESIUM Routine 05/24/2024 12:29 AM GAUGE AND WEIGH MACHINE ADJUSTER CBC WITH AUTO DIFFERENTIAL Routine 05/24/2024 12:29 AM GAUGE AND WEIGH MACHINE ADJUSTER POCT GLUCOSE DEVICE Routine 05/23/2024 8 :16 PM GAUGE AND WEIGH MACHINE ADJUSTER POCT GLUCOSE DEVICE Routine 05/23/2024 6 :14 PM GAUGE AND WEIGH MACHINE ADJUSTER POCT GLUCOSE DEVICE Routine 05/23/2024 1 2:17 PM GAUGE AND WEIGH MACHINE ADJUSTER US VEIN DUPLEX LOWER EXTREMITY BILATERAL COMPLETE IP Routine 05/23/2024 11:45 AM GAUGE AND WEIGH MACHINE ADJUSTER POCT GLUCOSE DEVICE Routine 05/23/2024 8 :16 AM GAUGE AND WEIGH MACHINE ADJUSTER DIFFERENTIAL AUTO Routine 05/23/2024 2:3 0 AM GAUGE AND WEIGH MACHINE ADJUSTER CBC WITH AUTO DIFFERENTIAL Routine 05/23/2024 2:30 AM GAUGE AND WEIGH MACHINE ADJUSTER EGFR Routine 05/23/2024 12:42 AM GAUGE AND WEIGH MACHINE ADJUSTER LACTATE DEHYDROGENASE Routine 05/23/2024 12:42 AM GAUGE AND WEIGH MACHINE ADJUSTER URIC ACID Routine 05/23/2024 12:42 AM GAUGE AND WEIGH MACHINE ADJUSTER TYPE AND SCREEN Timed 05/23/2024 12:42 AM GAUGE AND WEIGH MACHINE ADJUSTER PHOSPHORUS Routine 05/23/2024 12:42 AM GAUGE AND WEIGH MACHINE ADJUSTER COMPREHENSIVE METABOLIC PANEL Routine 05/23/2024 12:42 AM GAUGE AND WEIGH MACHINE ADJUSTER MAGNESIUM Routine 05/23/2024 12:42 AM GAUGE AND WEIGH MACHINE ADJUSTER POCT GLUCOSE DEVICE Routine 05/22/2024 8 :56 PM GAUGE AND WEIGH MACHINE ADJUSTER POCT GLUCOSE DEVICE Routine 05/22/2024 6 :09 PM GAUGE AND WEIGH MACHINE ADJUSTER POCT GLUCOSE DEVICE Routine 05/22/2024 4 :26 PM GAUGE AND WEIGH MACHINE ADJUSTER CT ABDOMEN PELVIS W CONTRAST ED 05/22/2024 2:32 PM GAUGE AND WEIGH MACHINE ADJUSTER POCT GLUCOSE DEVICE Routine 05/22/2024 1 2:58 PM GAUGE AND WEIGH MACHINE ADJUSTER POCT GLUCOSE DEVICE Routine 05/22/2024 9 :29 AM GAUGE AND WEIGH MACHINE ADJUSTER POCT GLUCOSE DEVICE Routine 05/22/2024 6 :54 AM GAUGE AND WEIGH MACHINE ADJUSTER CT CHEST PE W CONTRAST ED 05/22/2024 1:31 AM GAUGE AND WEIGH MACHINE ADJUSTER D-DIMER, QUANTITATIVE Routine 05/22/2024 12:24 AM GAUGE AND WEIGH MACHINE ADJUSTER URINALYSIS, MICROSCOPIC ONLY Routine 05/21/2024 11:09 PM GAUGE AND WEIGH MACHINE ADJUSTER TROPONIN I HIGH-SENSITIVITY 2-HOUR Timed 05/21/2024 11:09 PM GAUGE AND WEIGH MACHINE ADJUSTER URINE CULTURE Routine 05/21/2024 11:09 PM GAUGE AND WEIGH MACHINE ADJUSTER RESPIRATORY PATHOGEN PANEL Routine 05/21/2024 11:09 PM GAUGE AND WEIGH MACHINE ADJUSTER URINALYSIS AND REFLEX TO MICROSCOPIC AND CULTURE Routine 05/21/2024 11:09 PM GAUGE AND WEIGH MACHINE ADJUSTER POCT GLUCOSE DEVICE Routine 05/21/2024 8 :55 PM GAUGE AND WEIGH MACHINE ADJUSTER TROPONIN I HIGH-SENSITIVITY 4-HOUR Timed 05/21/2024 7:26 PM GAUGE AND WEIGH MACHINE ADJUSTER LIPID PANEL STAT 05/21/2024 4:20 PM GAUGE AND WEIGH MACHINE ADJUSTER HEMOGLOBIN A1C STAT 05/21/2024 4:20 PM GAUGE AND WEIGH MACHINE ADJUSTER EGFR STAT 05/21/2024 4:20 PM GAUGE AND WEIGH MACHINE ADJUSTER DIFFERENTIAL AUTO STAT 05/21/2024 4:2 0 PM GAUGE AND WEIGH MACHINE ADJUSTER TROPONIN I HIGH-SENSITIVITY SERIES (BASELINE, 2HR, 4HR, 6HR) STAT 05/21/2024 4:20 PM GAUGE AND WEIGH MACHINE ADJUSTER COMPREHENSIVE METABOLIC PANEL STAT 05/21/2024 4:20 PM GAUGE AND WEIGH MACHINE ADJUSTER CBC WITH AUTO DIFFERENTIAL STAT 05/21/2024 4:20 PM GAUGE AND WEIGH MACHINE ADJUSTER XR CHEST PA LATERAL 2 VIEWS ED 05/21/2024 2:23 PM GAUGE AND WEIGH MACHINE ADJUSTER POCT GLUCOSE DEVICE Routine 05/21/2024 1 :39 PM GAUGE AND WEIGH MACHINE ADJUSTER ECG 12-LEAD STAT 05/21/2024 1:36 PM GAUGE AND WEIGH MACHINE ADJUSTER US AXILLARY LEFT Schedule Routine, Read Routine (OP Routine) 05/21/2024 12:13 PM GAUGE AND WEIGH MACHINE ADJUSTER History of breast cancer Axillary pain, left URINALYSIS, MICROSCOPIC ONLY Routine 05/14/2024 4:50 PM GAUGE AND WEIGH MACHINE ADJUSTER Malignant neoplasm of upper-inner quadrant of left breast in female, estrogen receptor positive (HCC) URINALYSIS AND REFLEX TO MICROSCOPIC AND CULTURE Routine 05/14/2024 4:50 PM GAUGE AND WEIGH MACHINE ADJUSTER Malignant neoplasm of upper-inner quadrant of left breast in female, estrogen receptor positive (HCC) XR RIBS LEFT 2 VIEWS Schedule Routine, Read Routine (OP Routine) 05/14/2024 4:44 PM GAUGE AND WEIGH MACHINE ADJUSTER Malignant neoplasm of upper-inner quadrant of left [...] breath since last night. 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 AR: VALERY Report ID: [id number] Reading Location: [id number] Procedure Note Juve Gallegos MD - 07/01/2024 [...] Juve Gallegos M.D. AR: VALERY Report ID: [id number] Reading Location: [place] [address] PROCEDURES Final Resu lt * (ABNORMAL) Troponin T high-sensitivity 2-hour (07/01/2024 3:43 PM CDT) Trop T hs 27(H) <=14 ng/L Comment: Interpretive Data For further hscTnT resources including the diagnostic algorithm and an aid in interpretation, copy and paste this link: https://nrl.testcatalog.org/show/hsTrop Current Interpretive Data last revised 2020. Testing performed by: [address] [address] Trop T hs delta 0 ng/L MARY JANE PHAM Comment:Testing performed by : [address] [address] Trop T hs interp Insignificant MARY JANE PHAM Comment:Testing performed by : [address] [address] Blood 07/01/2024 3:43 PM CDT 07/01/2024 3:52 PM CDT us Ilana Stevens MD LAB BLOOD ORDERABLES F inal Result MARY JANE [address] [facility] Department [place] [address] * (ABNORMAL) Urinalysis reflex to microscopic and culture Urine (07/01/2024 3:43 PM CDT) Color, ur Yellow Yellow Comment:Testing performed by : [address] [address] Clarity, ur Clear Clear MARY JANE Comment:Testing performed by : [address] [address] Specific gravity, ur 1.020 1.003 - 1.030 MARY JANE Comment:Testing performed by : [address] [address] pH, urine 6.0 MARY JANE Comment: Interpretive Data U rine pH is affected by diet, medications, systemic acid-base disturbances, and renal tubular function. pH may affect urinary stone formation. For example, urine pH below 6.0 may help reduce the tendency for calcium phosphate stones and pH greater than 6.0 may reduce the tendency for uric acid stone formation. Source: [facility] [employer] Current Interpretive Data was last revised on 2017 Testing performed by: [address] [address] Protein, ur ql Negative Negative MARY JANE Comment:Testing performed by : [address] [address] Glucose, ur ql 2+(A) Negative MARY JANE Comment:Testing performed by : [address] [address] Ketones, ur Negative Negative MARY JANE Comment:Testing performed by : [address] [address] Bilirubin, ur Negative Negative MARY JANE Comment:Testing performed by : [address] [address] Blood, ur Trace(A) Negative MARY JANE Comment:Testing performed by : [place] [address], [place]., [address] Urobilinogen, ur <2.0 <2.0 mg/dL MARY JANE PHAM Comment:Testing performed by : [address], [place]., [address] Nitrite, ur Negative Negative MARY JANE PHAM Comment:Testing performed by : [address], [place]., [address] Leukocyte esterase, ur Negative Negative MARY JANE PHAM Comment:Testing performed by : [facility] [address] [place] [address], [place]., [address] UA reflex comment Reflex to microscopic UA will be performed. MARY JANE PHAM Comment:Testing performed by : [address], [place]., [address] Urine 07/01/2024 3:43 PM CDT 07/01/2024 3:52 PM CDT Ilana Stevens MD LAB MICROBIOLOGY - GEN ERAL ORDERABLES Final Result MARY JANE PHAM [address] [facility] Department [place] [address] * (ABNORMAL) Urinalysis, microscopic only (07/01/2024 3:43 PM CDT) WBC, ur 0-5 0 - 5 /HPF Comment:Testing performed by : [facility] [address] [place] [address]., [address] RBC, ur 3-5(A) 0 - 2 /HPF MARY JANE PHAM Comment:Testing performed by : [facility] [address] [place] [address], [place]., [address] Epithelial cells, squamous, ur 1-5 0 - 5 /HPF MARY JANE PHAM Comment:Testing performed by : [address], [place]., [address] Mucous, ur Present(A) MARY JANE PHAM Comment:Testing performed by : [address], [place]., [address] Culture Reflex Comment Reflex conditions for urine culture (WBC >10) not met. MARY JANE PHAM Comment:Testing performed by : [facility] [address] [place]., [address] Urine 07/01/2024 3:43 PM CDT 07/01/2024 3:52 PM CDT us Ilana Stevens MD LAB URINE ORDERABLES F inal Result MARY JANE [address] [facility] Department [place] [address] * XR Chest 1 Vw [...] Romelia Bowen D.O. PS: PS Report ID: [id number] Reading Location: [id number] Procedure Note Romelia Bowen, DO - 07/01/2024 [...] Romelia Bowen D.O. PS: PS Report ID: [id number] Reading Location: [place] [address] us Ilana Stevens MD IMG XR PROCEDURES Deann l Result * ECG 12 lead (07/01/2024 2:05 PM CDT) Ventricular Rate EKG/Min 76 BPM [facility] Atrial Rate 76 BPM [facility] MS-Interval (MSEC) 130 ms [facility] QRS-Interval (MSEC) 86 ms [facility] QT-Interval (MSEC) 386 ms [facility] QTc 434 ms [facility] P [place] 26 degrees [facility] R [place] 22 degrees [facility] T [place] 46 degrees [facility] Diagnosis Normal sinus rhythm Normal ECG When compared with ECG of 28-DEC-2023 12:49, No significant change was found Confirmed by DUTCH BURGOS M.D. ([id number]) on 07/01/2024 10:10:22 PM [facility] 07/01/2024 2:05 PM CDT 07/01/2024 10:10 PM CDT us Ilana Stevens MD ECG ORDERABLES Final Result [facility] * (ABNORMAL) Troponin T high-sensitivity series (baseline, 2hr, 4hr, 6hr) (07/01/2024 2:02 PM CDT) Trop T hs 27(H) <=14 ng/L Comment: Interpretive Data For further hscTnT resources including the diagnostic algorithm and an aid in interpretation, copy and paste this link: https://nrl.testcatalog.org/show/hsTrop Current Interpretive Data last revised 2020. Testing performed by: [address] [address] Blood 07/01/2024 2:02 PM CDT 07/01/2024 2:12 PM CDT us Ilana Stevens MD LAB BLOOD ORDERABLES F inal Result [facility] [address] [facility] Department [place] [address] * Influenza A/B, RSV, and COVID-19 PCR Nasopharyngeal (07/01/2024 2:02 PM CDT) COVID-19 RNA Negative Negative Comment:Testing performed by : [address] [address] Influenza A RNA Negative Negative [facility] Comment:Testing performed by : [address] [address] Influenza B RNA Negative Negative [facility] Comment:Testing performed by : [address] [address] RSV RNA Negative Negative [facility] Comment: Interpretive data: Testing performed by [facility]. This test is performed using the [employer] Xpert Xpress CoV-2/Flu/RSV plus assay. This is a multiplex, real-time reverse transcriptase PCR assay intended for the qualitative detection of nucleic acid from SARS-CoV-2, influenza A, influenza B, and respiratory syncytial virus. This assay has been cleared by the [place] Food and Drug administration. The performance characteristics have been verified by the [facility]. Results must be considered in the clinical context, and a negative result does not rule out infection. Interpretive Data last revised 2023 Testing performed by: [address] [address] Nasopharyngeal 07/01/2024 2: 02 PM CDT 07/01/2024 2:12 PM CDT Narrative MARY JANE - 07/01/2024 2:52 PM CDT Is the Patient experiencing symptoms consistent with COVID?->Yes Ilana Stevens MD LAB MICROBIOLOGY - GEN ERAL ORDERABLES Final Result MARY JANE [facility] [place] [address] * eGFR (07/01/2024 2:02 PM CDT) eGFR [...] last reviewed 2021. Testing performed by: [facility], [address] [place] [address]., [address] Blood 07/01/2024 2:02 PM CDT 07/01/2024 2:12 PM CDT Ilana Stevens MD LAB BLOOD ORDERABLES F inal Result MARY JANE [address] [facility] [place] [address] * Differential, auto (07/01/2024 2:02 PM CDT) [facility] Neutrophil abs 5.3 1.5 - 6.5 K/cumm Comment:Testing performed by : [address] [address] Imm gran abs 0.0 0.0 - 0.1 K/cumm [facility] Comment:Testing performed by : [address] [address] Lymphocyte abs 2.6 0.8 - 3.3 K/cumm [facility] Comment:Testing performed by : [address] [address] Monocyte abs 0.8 0.2 - 0.8 K/cumm [facility] Comment:Testing performed by : [address] [address] Eosinophil abs 0.2 0.0 - 0.5 K/cumm [facility] Comment:Testing performed by : [address] [address] Basophil abs 0.0 0.0 - 0.1 K/cumm [facility] Comment:Testing performed by : [address] [address] Neutrophil pct 59.1 % [facility] Comment: Interpretive Data Percent cell count reference ranges are not reported, since discordance with absolute values may lead to misinterpretation of CBC data. Current Interpretive Data was last revised on 2017. Testing performed by: [address] [address] Imm gran pct 0.2 % [facility] [facility] Comment: Interpretive Data Percent cell count reference ranges are not reported, since discordance with absolute values may lead to misinterpretation of CBC data. Current Interpretive Data was last revised on 2017. Testing performed by: [address] [address] Lymphocyte pct 29.0 % [facility] Comment: Interpretive Data Percent cell count reference ranges are not reported, since discordance with absolute values may lead to misinterpretation of CBC data. Current Interpretive Data was last revised on 2017. Testing performed by: [address] [address] Monocyte pct 9.3 % [facility] Comment: Interpretive Data Percent cell count reference ranges are not reported, since discordance with absolute values may lead to misinterpretation of CBC data. Current Interpretive Data was last revised on 2017. Testing performed by: [address] [address] Eosinophil pct 2.2 % [facility] Comment: Interpretive Data Percent cell count reference ranges are not reported, since discordance with absolute values may lead to misinterpretation of CBC data. Current Interpretive Data was last revised on 2017. Testing performed by: [address] [address] Basophil pct 0.2 % [facility] Comment: Interpretive Data Percent cell count reference ranges are not reported, since discordance with absolute values may lead to misinterpretation of CBC data. Current Interpretive Data was last revised on 2017. Testing performed by: [address] [address] Blood 07/01/2024 2:02 PM CDT 07/01/2024 2:12 PM CDT us Ilana Stevens MD LAB BLOOD ORDERABLES F inal Result MARY JANE [address] [facility] [place] [address] * Pro B-type natriuretic peptide (07/01/2024 2:02 [...] Last Revised Date: 2017. Testing performed by: [address] [address] Blood 07/01/2024 2:02 PM CDT 07/01/2024 2:12 PM CDT us Ilana Stevens MD LAB BLOOD ORDERABLES F inal Result [facility] [address] [facility] Department [place] [address] * (ABNORMAL) CBC with auto differential (07/01/2024 2:02 PM CDT) [facility] WBC 9.0 3.8 - 9.9 K/cumm Comment:Testing performed by : [address] [address] Hgb 13.2 11.9 - 15.5 g/dL MARY JANE PHAM Comment:Testing performed by : [address] [address] Hct 41.1 35.6 - 45.5 % MARY JANE PHAM Comment:Testing performed by : [address] [address] Plt 277 150 - 400 K/cumm MARY JANE PHAM Comment:Testing performed by : [address] [address] MPV 9.5 9.1 - 12.3 fL MARY JANE PHAM Comment:Testing performed by : [address] [address] RBC 4.53 3.90 - 5.20 M/cumm MARY JANE PHAM Comment:Testing performed by : [address] [address] MCV 90.7 81.3 - 96.4 fL MARY JANE Comment:Testing performed by : [address] [address] MCH 29.1 27.1 - 33.3 pg MARY JANE Comment:Testing performed by : [address], [address] MCHC 32.1(L) 32.3 - 35.7 g/dL MARY JANE Comment:Testing performed by : [address], [address] RDW CV 13.2 11.1 - 14.9 % MARY JANE Comment:Testing performed by : [address] [address] RDW SD 44.2 35.7 - 48.1 fL MARY JANE Comment:Testing performed by : [address] [address] NRBC abs 0.00 0.00 - 0.01 K/cumm MARY JANE Comment:Testing performed by : [address], [address] Blood 07/01/2024 2:02 PM CDT 07/01/2024 2:12 PM CDT us Ilana Stevens MD LAB BLOOD ORDERABLES F inal Result [facility] [address] [facility] Department [place] [address] * Comprehensive metabolic panel (07/01/2024 2:02 PM CDT) [facility] Sodium 137 135 - 145 mmol/L Comment:Testing performed by : [address] [address] Potassium, pl 4.2 3.3 - 4.9 mmol/L [facility] Comment:Testing performed by : [address], [place]., [address] Chloride 101 97 - 110 mmol/L [facility] Comment:Testing performed by : [address], [place]., [address] CO2 27 22 - 32 mmol/L MARY JANE Comment:Testing performed by : [address], [place]., [address] Anion gap 9 2 - 15 mmol/L [facility] Comment:Testing performed by : [address], [place]., [address] BUN 15 6 - 25 mg/dL [facility] Comment:Testing performed by : [address], [place]., [address] Creatinine 0.60 0.60 - 1.10 mg/dL [facility] Comment:Testing performed by : [address] [address] Glucose 166 70 - 199 mg/dL [facility] Comment: Interpretive Data Fasting glucose >/= 126 [...] was last revised 2022. Testing performed by: [address] [address] Calcium 9.8 8.5 - 10.3 mg/dL [facility] Comment:Testing performed by : [address] [address] Bilirubin, total 0.5 0.1 - 1.2 mg/dL [facility] Comment:Testing performed by : [address] [address] Protein, pl 8.0 6.5 - 8.5 g/dL MARY JANE Comment:Testing performed by : [address] [address] Albumin 3.8 3.5 - 5.0 g/dL MARY JANE Comment:Testing performed by : [address] [address] Alk phos 72 40 - 130 Units/L MARY JANE Comment:Testing performed by : [address] [address] ALT 19 7 - 45 Units/L MARY JANE Comment:Testing performed by : [address] [address] AST 23 10 - 45 Units/L MARY JANE Comment:Testing performed by : [address] [address] Blood 07/01/2024 2:02 PM CDT 07/01/2024 2:12 PM CDT Ilana Stevens MD LAB BLOOD ORDERABLES F inal Result MARY JANE [address] [facility] Department [place] [address] * POCT glucose (05/26/2024 4:27 PM [employer]ACHINE ADJUSTER) Glucose, POC 137 70 - 199 mg/dL Blood 05/26/2024 4:27 PM [employer] MACHINE ADJUSTER 05/26/2024 4:27 PM [employer] MACHINE ADJUSTER us Carlos Real MD LAB POCT ORDERABLES - DEVICE Fin al Result [facility] [place] [address] * POCT glucose (05/26/2024 11:38 AM [employer] WE[employer] MACHINE ADJUSTER) Glucose, POC 146 70 - 199 mg/dL Blood 05/26/2024 11:3 8 AM [employer] MACHINE ADJUSTER 05/26/2024 11:38 AM [employer] WEIGH MACHINE ADJUSTER Carlos Real MD LAB POCT ORDERABLES - DEVICE Fin al Result [facility] [place] [address] * POCT glucose (05/26/2024 8:12 AM [employer] WE[employer] MACHINE ADJUSTER) Glucose, POC 134 70 - 199 mg/dL Blood 05/26/2024 8:12 AM [employer] MACHINE ADJUSTER 05/26/2024 8:12 AM [employer] WEIGH MACHINE ADJUSTER Carlos Real MD LAB POCT ORDERABLES - DEVICE Fin al Result Performing Organization Address [facility] de Phone Number MARY JANE [facility] [place] [address] * eGFR (05/26/2024 12:05 AM [employer] MACHINE ADJUSTER) eGFR >90 >=60 mL/min/1. 73 m2 Comment: [...] reviewed 2021. Blood 05/26/2024 12:0 5 AM [employer] MACHINE ADJUSTER 05/26/2024 12:23 AM [employer]IGH MACHINE ADJUSTER Carlos Real MD LAB BLOOD ORDERABLES Final Resul t MARY JANE [facility] One [facility] Department [place] [address] * (ABNORMAL) Differential, auto (05/26/2024 12:05 AM [employer] MACHINE ADJUSTER) Neutrophil abs 6.4 1.5 - 6.5 K/cumm Imm gran abs 0.0 0.0 - 0.1 K/cumm [facility] Lymphocyte abs 2.9 0.8 - 3.3 K/cumm [facility] Monocyte abs 0.9(H) 0.2 - 0.8 K/cumm [facility] Eosinophil abs 0.3 0.0 - 0.5 K/cumm [facility] Basophil abs 0.0 0.0 - 0.1 K/cumm [facility] Neutrophil pct 60.4 % [facility] Comment: Interpretive Data Percent cell count reference ranges are not reported, since discordance with absolute values may lead to misinterpretation of CBC data. Current Interpretive Data was last revised on 2017. Imm gran pct 0.4 % [facility] Comment: Interpretive Data Percent cell count reference ranges are not reported, since discordance with absolute values may lead to misinterpretation of CBC data. Current Interpretive Data was last revised on 2017. Lymphocyte pct 27.5 % [facility] Comment: Interpretive Data Percent cell count reference ranges are not reported, since discordance with absolute values may lead to misinterpretation of CBC data. Current Interpretive Data was last revised on 2017. Monocyte pct 8.2 % [facility] Comment: Interpretive Data Percent cell count reference ranges are not reported, since discordance with absolute values may lead to misinterpretation of CBC data. Current Interpretive Data was last revised on 2017. Eosinophil pct 3.1 % [facility] Comment: Interpretive Data Percent cell count reference ranges are not reported, since discordance with absolute values may lead to misinterpretation of CBC data. Current Interpretive Data was last revised on 2017. Basophil pct 0.4 % [facility] Comment: Interpretive Data Percent cell count reference ranges are not reported, since discordance with absolute values may lead to misinterpretation of CBC data. Current Interpretive Data was last revised on 2017. Blood 05/26/2024 12:0 5 AM [employer] MACHINE ADJUSTER 05/26/2024 12:07 AM [employer] WEIGH MACHINE ADJUSTER Carlos Real MD LAB BLOOD ORDERABLES Final Resul t Performing Organization Address [facility] de Phone Number [facility] [place] [address] * (ABNORMAL) CBC with auto differential (05/26/2024 12:05 AM G[employer] MACHINE ADJUSTER) WBC 10.6(H) 3.8 - 9.9 K/cumm Hgb 12.5 11.9 - 15.5 g/dL [facility] Hct 39.2 35.6 - 45.5 % [facility] Plt 248 150 - 400 K/cumm [facility] MPV 9.7 9.1 - 12.[address] [facility] RBC 4.32 3.90 - 5.20 M/cumm [facility] MCV 90.7 81.3 - 96.[address] [facility] MCH 28.9 27.1 - 33.[address] [facility] MCHC 31.9(L) 32.3 - 35.7 g/dL [facility] RDW CV 13.5 11.1 - 14.9 % [facility] RDW SD 45.1 35.7 - 48.[address] [facility] NRBC abs 0.00 0.00 - 0.01 K/cumm [facility] Blood 05/26/2024 12:0 5 AM [employer] MACHINE ADJUSTER 05/26/2024 12:07 AM G[employer] WEIGH MACHINE ADJUSTER Carlos Real MD LAB BLOOD ORDERABLES Final Resul t Performing Organization Address [facility] Co de Phone Number [facility] [place] [address] * Phosphorus (05/26/2024 12:05 AM G[employer] AND WEIGH MACHINE ADJUSTER) Pathologist [facility] Phosphorus, pl 3.2 2.3 - 4.5 mg/dL Blood 05/26/2024 12:0 5 AM [employer] WE[employer] MACHINE ADJUSTER 05/26/2024 12:08 AM G[employer] AND WEIGH MACHINE ADJUSTER Carlos Real MD LAB BLOOD ORDERABLES Final Resul t Performing Organization Address City/[facility] de Phone Number [facility] [place] [address] * Magnesium (05/26/2024 12:05 AM G[employer] AND WEIGH MACHINE ADJUSTER) Pathologist [facility] Magnesium 1.8 1.4 - 2.5 mg/dL Blood 05/26/2024 12:0 5 AM [employer] WEIGH MACHINE ADJUSTER 05/26/2024 12:08 AM G[employer] AND WEIGH MACHINE ADJUSTER Carlos Real MD LAB BLOOD ORDERABLES Final Resul t Performing Organization Address [facility] de Phone Number [facility] [place] [address] * (ABNORMAL) Comprehensive metabolic panel (05/26/2024 12:05 AM G[employer] WE[employer] MACHINE ADJUSTER) Pathologist [facility] Sodium 136 135 - 145 mmol/L Potassium, pl 4.2 3.3 - 4.9 mmol/L [facility] Chloride 101 97 - 110 mmol/L [facility] CO2 29 22 - 32 mmol/L [facility] Anion gap 6 2 - 15 mmol/L [facility] BUN 19 6 - 25 mg/dL [facility] Creatinine 0.67 0.60 - 1.10 mg/dL [facility] Glucose 164 70 - 199 mg/dL [facility] Comment: Interpretive Data Fasting glucose >/= [...] 2022. Calcium 9.4 8.5 - 10.3 mg/dL [facility] Bilirubin, total 0.4 0.1 - 1.2 mg/dL [facility] Protein, pl 7.1 6.5 - 8.5 g/dL [facility] Albumin 3.3(L) 3.5 - 5.0 g/dL [facility] Alk phos 65 40 - 130 Units/L [facility] ALT 17 7 - 45 Units/L [facility] AST 19 10 - 45 Units/L [facility] Blood 05/26/2024 12:0 5 AM [employer] WE[employer] MACHINE ADJUSTER 05/26/2024 12:08 AM G[employer] WEIGH MACHINE ADJUSTER Carlos Real MD LAB BLOOD ORDERABLES Final Resul t Performing Organization Address [facility] Phone Number [facility] Department [place] [address] * POCT glucose (05/25/2024 7:44 PM G[employer] WEIGH MACHINE ADJUSTER) Glucose, POC 160 70 - 199 mg/dL Blood 05/25/2024 7:44 PM [employer] WE[employer] MACHINE ADJUSTER 05/25/2024 7:44 PM G[employer] AND WEIGH MACHINE ADJUSTER Result [facility] Carlos Real MD LAB POCT ORDERABLES - DEVICE Fin al Result Performing Organization Address [facility] de Phone Number [facility] Department [place] [address] * POCT glucose (05/25/2024 5:24 PM G[employer] AND WEIGH MACHINE ADJUSTER) Glucose, POC 152 70 - 199 mg/dL Blood 05/25/2024 5:24 PM G[employer] WEIGH MACHINE ADJUSTER 05/25/2024 5:24 PM G[employer] AND WEIGH MACHINE ADJUSTER Carlos Real MD LAB POCT ORDERABLES - DEVICE Fin al Result Performing Organization Address [facility] Phone Number [facility] [place] [address] * POCT glucose (05/25/2024 11:37 AM GAU[employer] AND WEIGH MACHINE ADJUSTER) Glucose, POC 143 70 - 199 mg/dL Blood 05/25/2024 11:3 7 AM G[employer] AND WEIGH MACHINE ADJUSTER 05/25/2024 11:37 AM G[employer] AND WEIGH MACHINE ADJUSTER Carlos Real MD LAB POCT ORDERABLES - DEVICE Fin al Result Performing Organization Address [facility] [place] [address] * POCT glucose (05/25/2024 7:27 AM G[employer] AND WEIGH MACHINE ADJUSTER) Glucose, POC 134 70 - 199 mg/dL Blood 05/25/2024 7:27 AM G[employer] AND WEIGH MACHINE ADJUSTER 05/25/2024 7:27 AM G[employer] AND WEIGH MACHINE ADJUSTER Carlos Real MD LAB POCT ORDERABLES - DEVICE Fin al Result Performing Organization Address City/[facility] Co de Phone Number [facility] [place] [address] * eGFR (05/25/2024 12:20 AM G[employer] WEIGH MACHINE ADJUSTER) eGFR >90 >=60 mL/min/1. 73 m2 Comment: [...] reviewed 2021. Blood 05/25/2024 12:2 0 AM G[employer] WEIGH MACHINE ADJUSTER 05/25/2024 12:43 AM G[employer]GE AND WEIGH MACHINE ADJUSTER us Naila Guzman [employer] LAB BLOOD ORDERABLES Final Result [facility] Department [place] [address] * Differential, auto (05/25/2024 12:20 AM G[employer] AND WEIGH MACHINE ADJUSTER) Neutrophil abs 5.9 1.5 - 6.5 K/cumm Imm gran abs 0.0 0.0 - 0.1 K/cumm [facility] Lymphocyte abs 2.4 0.8 - 3.3 K/cumm [facility] Monocyte abs 0.8 0.2 - 0.8 K/cumm [facility] Eosinophil abs 0.3 0.0 - 0.5 K/cumm [facility] Basophil abs 0.0 0.0 - 0.1 K/cumm [facility] Neutrophil pct 62.6 % [facility] Comment: Interpretive Data Percent cell count reference ranges are not reported, since discordance with absolute values may lead to misinterpretation of CBC data. Current Interpretive Data was last revised on 2017. Imm gran pct 0.3 % [facility] Comment: Interpretive Data Percent cell count reference ranges are not reported, since discordance with absolute values may lead to misinterpretation of CBC data. Current Interpretive Data was last revised on 2017. Lymphocyte pct 24.8 % [facility] Comment: Interpretive Data Percent cell count reference ranges are not reported, since discordance with absolute values may lead to misinterpretation of CBC data. Current Interpretive Data was last revised on 2017. Monocyte pct 8.8 % [facility] Comment: Interpretive Data Percent cell count reference ranges are not reported, since discordance with absolute values may lead to misinterpretation of CBC data. Current Interpretive Data was last revised on 2017. Eosinophil pct 3.2 % [facility] Comment: Interpretive Data Percent cell count reference ranges are not reported, since discordance with absolute values may lead to misinterpretation of CBC data. Current Interpretive Data was last revised on 2017. Basophil pct 0.3 % [facility] Comment: Interpretive Data Percent cell count reference ranges are not reported, since discordance with absolute values may lead to misinterpretation of CBC data. Current Interpretive Data was last revised on 2017. Blood 05/25/2024 12:2 0 AM [employer] WE[employer] MACHINE ADJUSTER 05/25/2024 12:29 AM G[employer] AND WEIGH MACHINE ADJUSTER us Naila Guzman NP LAB BLOOD ORDERABLES Final Result [facility] One [facility] Department [place] [address] * (ABNORMAL) CBC with auto differential (05/25/2024 12:20 AM GAU[employer] AND WEIGH MACHINE ADJUSTER) Pathologist [facility] WBC 9.5 3.8 - 9.9 K/cumm Hgb 12.8 11.9 - 15.5 g/dL [facility] Hct 40.0 35.6 - 45.5 % [facility] Plt 246 150 - 400 K/cumm [facility] MPV 9.8 9.1 - 12.[address] [facility] RBC 4.42 3.90 - 5.20 M/cumm [facility] MCV 90.5 81.3 - 96.[address] [facility] MCH 29.0 27.1 - 33.[address] [facility] MCHC 32.0(L) 32.3 - 35.7 g/dL [facility] RDW CV 13.5 11.1 - 14.9 % [facility] RDW SD 45.3 35.7 - 48.[address] [facility] NRBC abs 0.00 0.00 - 0.01 K/cumm [facility] Blood 05/25/2024 12:2 0 AM G[employer] WEIGH MACHINE ADJUSTER 05/25/2024 12:29 AM G[employer] AND WEIGH MACHINE ADJUSTER Naila Guzman NP LAB BLOOD ORDERAB[place] [address] * Phosphorus (05/25/2024 12:20 AM GAUGE AND WEIGH MACHINE ADJUSTER) Pathologist [facility] Phosphorus, pl 3.1 2.3 - 4.5 mg/dL Blood 05/25/2024 12:2 0 AM G[employer] AND WEIGH MACHINE ADJUSTER 05/25/2024 12:29 AM GAU[employer] AND WEIGH MACHINE ADJUSTER Naila Guzman [employer] LAB BLOOD ORDERABLES Final Result Performing Organization Address [facility] Co de Phone Number [facility] [place] [address] * Magnesium (05/25/2024 12:20 AM GAUGE AND WEIGH MACHINE ADJUSTER) [facility] Magnesium 1.9 1.4 - 2.5 mg/dL Blood 05/25/2024 12:2 0 AM G[employer] AND WEIGH MACHINE ADJUSTER 05/25/2024 12:29 AM GAU[employer] AND WEIGH MACHINE ADJUSTER Naila Guzman NP LAB BLOOD ORDERABLES Final Result Performing Organization Address City/[facility] Co de Phone Number [facility] [place] [address] * (ABNORMAL) Comprehensive metabolic panel (05/25/2024 12:20 AM GAUGE AND WEIGH MACHINE ADJUSTER) Pathologist [facility] Sodium 138 135 - 145 mmol/L Potassium, pl 4.4 3.3 - 4.9 mmol/L [facility] Chloride 101 97 - 110 mmol/L [facility] CO2 29 22 - 32 mmol/L [facility] Anion gap 8 2 - 15 mmol/L [facility] BUN 20 6 - 25 mg/dL [facility] Creatinine 0.69 0.60 - 1.10 mg/dL [facility] Glucose 156 70 - 199 mg/dL [facility] Comment: Interpretive Data Fasting glucose >/= [...] AST 16 10 - 45 Units/L [facility] Blood 05/25/2024 12:2 0 AM G[employer] AND WEIGH MACHINE ADJUSTER 05/25/2024 12:29 AM G[employer] AND WEIGH MACHINE ADJUSTER us Naila Guzman NP LAB BLOOD ORDERABLES Final Result Performing Organization Address [facility] Co de Phone Number [facility] Department [place] [address] * POCT glucose (05/24/2024 8:13 PM GAUGE AND WEIGH MACHINE ADJUSTER) [facility] Signature Glucose, POC 171 70 - 199 mg/dL Blood 05/24/2024 8:13 PM G[employer] WEIGH MACHINE ADJUSTER 05/24/2024 8:13 PM G[employer] AND WEIGH MACHINE ADJUSTER us Carlos Real MD LAB POCT ORDERABLES - DEVICE Fin al Result Performing Organization Address [facility] Co de Phone Number [facility] Department [place] [address] * POCT glucose (05/24/2024 5:17 PM GAU[employer] AND WEIGH MACHINE ADJUSTER) Glucose, POC 133 70 - 199 mg/dL Blood 05/24/2024 5:17 PM G[employer] WEIGH MACHINE ADJUSTER 05/24/2024 5:17 PM G[employer] AND WEIGH MACHINE ADJUSTER Carlos Real MD LAB POCT ORDERABLES - DEVICE Fin al Result Performing Organization Address [facility] de Phone Number [facility] [place] [employer] [address] * POCT glucose (05/24/2024 12:49 PM GAU[employer] AND WEIGH MACHINE ADJUSTER) Glucose, POC 180 70 - 199 mg/dL Blood 05/24/2024 12:4 9 PM G[employer] WEIGH MACHINE ADJUSTER 05/24/2024 12:49 PM GAU[employer] AND WEIGH MACHINE ADJUSTER Carlos Real MD LAB POCT ORDERABLES - DEVICE Fin al Result Performing Organization Address [facility] de Phone Number [facility] [place] [address] * POCT glucose (05/24/2024 9:22 AM GAUGE AND WEIGH MACHINE ADJUSTER) Pathologist [facility] Glucose, POC 139 70 - 199 mg/dL Blood 05/24/2024 9:22 AM G[employer] AND WEIGH MACHINE ADJUSTER 05/24/2024 9:22 AM GAU[employer] AND WEIGH MACHINE ADJUSTER Carlos Real MD LAB POCT ORDERABLES - DEVICE Fin al Result Performing Organization Address [facility] de Phone Number [facility] [place] [address] * Herpes Simplex Virus (HSV) PCR Oral (05/24/2024 8:47 AM GAUGE AND WEIGH MACHINE ADJUSTER) [facility] HSV DNA Not Detected Not Detected [facility] Comment: Interpretive Data This assay is [...] reviewed on 08/21/2018 Oral 05/24/2024 8:47 AM G[employer] WEIGH MACHINE ADJUSTER 05/24/2024 9:24 AM G[employer] AND WEIGH MACHINE ADJUSTER Narrative [facility] - 05/24/2024 4:28 PM G[employer] AND WEIGH MACHINE ADJUSTER Oral ulcer swab Naila Guzman NP LAB MICROBIOLOGY - GENERAL ORDERABLES Final Result [facility] Department [place] [address] [facility] * POCT glucose (05/24/2024 8:22 AM GAU[employer] AND WEIGH MACHINE ADJUSTER) Pathologist [facility] Glucose, POC 132 70 - 199 mg/dL Blood 05/24/2024 8:22 AM G[employer] AND WEIGH MACHINE ADJUSTER 05/24/2024 8:22 AM G[employer] AND WEIGH MACHINE ADJUSTER Carlos Real MD LAB POCT ORDERABLES - DEVICE Fin al Result Performing Organization Address City/[facility]/ZIP Co de Phone Number [facility] Department [place] [address] * eGFR (05/24/2024 12:29 AM G[employer] AND WEIGH MACHINE ADJUSTER) eGFR 87 >=60 mL/min/1. 73 m2 Comment: [...] reviewed 2021. Blood 05/24/2024 12:2 9 AM GAUGE AND WEIGH MACHINE ADJUSTER 05/24/2024 12:54 AM GAUGE AND WEIGH MACHINE ADJUSTER us Naila Guzman TOOTH CUTTER PINION LAB BLOOD ORDERABLES Final Result [facility] Department [place] [address] * (ABNORMAL) Differential, auto (05/24/2024 12:29 AM GAUGE AND WEIGH MACHINE ADJUSTER) Neutrophil abs 5.3 1.5 - 6.5 K/cumm Imm gran abs 0.0 0.0 - 0.1 K/cumm [facility] Lymphocyte abs 3.0 0.8 - 3.3 K/cumm [facility] Monocyte abs 0.9(H) 0.2 - 0.8 K/cumm [facility] Eosinophil abs 0.3 0.0 - 0.5 K/cumm [facility] Basophil abs 0.0 0.0 - 0.1 K/cumm [facility] Neutrophil pct 55.8 % [facility] Comment: Interpretive Data Percent cell count reference ranges are not reported, since discordance with absolute values may lead to misinterpretation of CBC data. Current Interpretive Data was last revised on 2017. Imm gran pct 0.4 % [facility] Comment: Interpretive Data Percent cell count reference ranges are not reported, since discordance with absolute values may lead to misinterpretation of CBC data. Current Interpretive Data was last revised on 2017. Lymphocyte pct 31.4 % [facility] Comment: Interpretive Data Percent cell count reference ranges are not reported, since discordance with absolute values may lead to misinterpretation of CBC data. Current Interpretive Data was last revised on 2017. Monocyte pct 9.0 % [facility] Comment: Interpretive Data Percent cell count reference ranges are not reported, since discordance with absolute values may lead to misinterpretation of CBC data. Current Interpretive Data was last revised on 2017. Eosinophil pct 3.0 % [facility] Comment: Interpretive Data Percent cell count reference ranges are not reported, since discordance with absolute values may lead to misinterpretation of CBC data. Current Interpretive Data was last revised on 2017. Basophil pct 0.4 % [facility] Comment: Interpretive Data Percent cell count reference ranges are not reported, since discordance with absolute values may lead to misinterpretation of CBC data. Current Interpretive Data was last revised on 2017. Blood 05/24/2024 12:2 9 AM GAUGE AND WEIGH MACHINE ADJUSTER 05/24/2024 12:54 AM GAUGE AND WEIGH MACHINE ADJUSTER us Naila Guzman TOOTH CUTTER PINION LAB BLOOD ORDERABLES Final Result [facility] Department [place] [address] * CBC with auto differential (05/24/2024 12:29 AM GAUGE AND WEIGH MACHINE ADJUSTER) WBC 9.5 3.8 - 9.9 K/cumm Hgb 12.6 11.9 - 15.5 g/dL [facility] Hct 39.0 35.6 - 45.5 % [facility] Plt 223 150 - 400 K/cumm [facility] MPV 9.6 9.1 - 12.[address] [facility] RBC 4.23 3.90 - 5.20 M/cumm [facility] MCV 92.2 81.3 - 96.[address] [facility] MCH 29.8 27.1 - 33.[address] [facility] MCHC 32.3 32.3 - 35.7 g/dL [facility] RDW CV 13.7 11.1 - 14.9 % [facility] RDW SD 46.5 35.7 - 48.[address] [facility] NRBC abs 0.00 0.00 - 0.01 K/cumm [facility] Blood 05/24/2024 12:2 9 AM GAUGE AND WEIGH MACHINE ADJUSTER 05/24/2024 12:54 AM GAUGE AND WEIGH MACHINE ADJUSTER us Naila Guzman TOOTH CUTTER PINION LAB BLOOD ORDERABLES Final Result Performing Organization Address City/[facility] Co de Phone Number [facility] [place] [employer] [address] * Phosphorus (05/24/2024 12:29 AM GAUGE AND WEIGH MACHINE ADJUSTER) [facility] Phosphorus, pl 3.6 2.3 - 4.5 mg/dL Blood 05/24/2024 12:2 9 AM GAUGE AND WEIGH MACHINE ADJUSTER 05/24/2024 12:54 AM GAUGE AND WEIGH MACHINE ADJUSTER us Naila Guzman NP LAB BLOOD ORDERABLES Final Result Performing Organization Address [facility] [place] [address] * Magnesium (05/24/2024 12:29 AM GAUGE AND WEIGH MACHINE ADJUSTER) [facility] Magnesium 1.9 1.4 - 2.5 mg/dL Blood 05/24/2024 12:2 9 AM GAUGE AND WEIGH MACHINE ADJUSTER 05/24/2024 12:54 AM GAUGE AND WEIGH MACHINE ADJUSTER Naila Guzman NP LAB BLOOD ORDERABLES Final Result Performing Organization Address [facility] [place] [address] * (ABNORMAL) Comprehensive metabolic panel (05/24/2024 12:29 AM GAUGE AND WEIGH MACHINE ADJUSTER) [facility] Sodium 139 135 - 145 mmol/L Potassium, pl 4.3 3.3 - 4.9 mmol/L [facility] Chloride 103 97 - 110 mmol/L [facility] CO2 29 22 - 32 mmol/L [facility] Anion gap 7 2 - 15 mmol/L [facility] BUN 19 6 - 25 mg/dL [facility] Creatinine 0.75 0.60 - 1.10 mg/dL [facility] Glucose 157 70 - 199 mg/dL [facility] Comment: Interpretive Data Fasting glucose >/= [...] 2022. Calcium 9.2 8.5 - 10.3 mg/dL [facility] Bilirubin, total 0.4 0.1 - 1.2 mg/dL [facility] Protein, pl 7.1 6.5 - 8.5 g/dL [facility] Albumin 3.3(L) 3.5 - 5.0 g/dL [facility] Alk phos 65 40 - 130 Units/L [facility] ALT 18 7 - 45 Units/L [facility] AST 17 10 - 45 Units/L [facility] Blood 05/24/2024 12:2 9 AM GAUGE AND WEIGH MACHINE ADJUSTER 05/24/2024 12:54 AM GAUGE AND WEIGH MACHINE ADJUSTER us Naila Guzman TOOTH CUTTER PINION LAB BLOOD ORDERABLES Final Result Performing Organization Address [facility]/ZIP Co de Phone Number [facility] Department [place] [address] * POCT glucose (05/23/2024 8:16 PM GAUGE AND WEIGH MACHINE ADJUSTER) [facility] Glucose, POC 145 70 - 199 mg/dL Blood 05/23/2024 8:16 PM GAUGE AND WEIGH MACHINE ADJUSTER 05/23/2024 8:16 PM GAUGE AND WEIGH MACHINE ADJUSTER Carlos Real MD LAB POCT ORDERABLES - DEVICE Fin al Result Performing Organization Address [facility]/ZIP Co de Phone Number [facility] [place] [address] * POCT glucose (05/23/2024 6:14 PM GAUGE AND WEIGH MACHINE ADJUSTER) Glucose, POC 181 70 - 199 mg/dL Blood 05/23/2024 6:14 PM GAUGE AND WEIGH MACHINE ADJUSTER 05/23/2024 6:14 PM GAUGE AND WEIGH MACHINE ADJUSTER Carlos Real MD LAB POCT ORDERABLES - DEVICE Fin al Result Performing Organization Address City/[facility] Co de [place] [address] * POCT glucose (05/23/2024 12:17 PM GAUGE AND WEIGH MACHINE ADJUSTER) Glucose, POC 159 70 - 199 mg/dL Blood 05/23/2024 12:1 7 PM GAUGE AND WEIGH MACHINE ADJUSTER 05/23/2024 12:17 PM GAUGE AND WEIGH MACHINE ADJUSTER Cem Knapp MD LAB POCT ORDERABLES - DEVIC E Final Result Performing Organization Address [facility] [place] [address] * US Vein Duplex Lower Extremity Bilateral Complete (05/23/2024 11:45 AM GAUGE AND WEIGH MACHINE ADJUSTER) LV EF % CONS SCIMAGE Anatomical Region Laterality Modality Vascular Bilateral Ultrasound 05/23/2024 11:1 2 AM GAUGE AND WEIGH MACHINE ADJUSTER Narrative 05/23/2024 9:43 PM GAUGE AND WEIGH MACHINE ADJUSTER [employer] - Department of Vascular Surgery, Vascular Laboratory [address] [place] [id number] Lower Extremity Venous Ultrasound Report Patient Name: MOHSEN MARQUES M : 1955 (68y 11m) Study Date: 05/23/2024 11:12:03 AM Gender: F Tech: VELVET Location: [id number] Ref Provider: CARLOS REAL Quality: Adequate Order Provider: CARLOS REAL PROCEDURES: Vascular Report: Venous Duplex imaging was performed bilaterally in the lower extremities. The common femoral, femoral, popliteal, posterior tibial, peroneal veins were evaluated for patency, spontaneity and phasicity with Doppler, compression and augmentation maneuvers. Great saphenous vein proximal at the junction was evaluated with compression maneuvers. INDICATIONS: Localized edema. FINDINGS: Performing Auctioneer Tobacco: Marlys Castillo RVT. Bilateral: Venous Doppler signals [...] Vu Obregon MD, FACS 05/23/2024 9:42:19 PM GAUGE AND WEIGH MACHINE ADJUSTER Procedure Note Vu Obregon MD - 05/23/2024 [facility] - Department of Vascular Surgery,Vascular Laboratory [address] [place], [place] [id number] Lower Extremity Venous Ultrasound Report Patient Name: MOHSEN MARQUES M : 1955 (68y 11m) Study Date: 05/23/2024 11:12:03 AM Gender: F Tech: VELVET Location: [id number] Ref Provider: CARLOS REAL Quality: Adequate Order Provider: CARLOS REAL PROCEDURES: Vascular Report: Venous Duplex imaging was performed bilaterally in the lower extremities.The common femoral, femoral, popliteal, posterior tibial, peroneal veins wereevaluated for patency, spontaneity and phasicity with Doppler, compression and augmentationmaneuvers. Great saphenous vein proximal at the junction was evaluated with compressionmaneuvers. INDICATIONS: Localized edema. FINDINGS: Performing Auctioneer Tobacco: Marlys Castillo RVT. Bilateral: Venous Doppler signals [...] Vu Obregon MD FACS 05/23/2024 9:42:19 PM GAUGE AND WEIGH MACHINE ADJUSTER Carlos Real MD [facility] PROCEDURES Final Result * (ABNORMAL) POCT glucose (05/23/2024 8:16 AM GAUGE AND WEIGH MACHINE ADJUSTER) Glucose, POC 204(H) 70 - 199 mg/dL Blood 05/23/2024 8:16 AM GAUGE AND WEIGH MACHINE ADJUSTER 05/23/2024 8:16 AM GAUGE AND WEIGH MACHINE ADJUSTER Cem Knapp MD LAB POCT ORDERABLES - DEVIC E Final Result [facility] Department [place] [address] * (ABNORMAL) Differential, auto (05/23/2024 2:30 AM GAUGE AND WEIGH MACHINE ADJUSTER) Neutrophil abs 8.0(H) 1.5 - 6.5 K/cumm Imm gran abs 0.1 0.0 - 0.1 K/cumm [facility] Lymphocyte abs 2.6 0.8 - 3.3 K/cumm [facility] Monocyte abs 1.0(H) 0.2 - 0.8 K/cumm [facility] Eosinophil abs 0.3 0.0 - 0.5 K/cumm [facility] Basophil abs 0.0 0.0 - 0.1 K/cumm [facility] Neutrophil pct 66.5 % [facility] Comment: Interpretive Data Percent cell count reference ranges are not reported, since discordance with absolute values may lead to misinterpretation of CBC data. Current Interpretive Data was last revised on 2017. Imm gran pct 0.5 % [facility] Comment: Interpretive Data Percent cell count reference ranges are not reported, since discordance with absolute values may lead to misinterpretation of CBC data. Current Interpretive Data was last revised on 2017. Lymphocyte pct 21.9 % [facility] Comment: Interpretive Data Percent cell count reference ranges are not reported, since discordance with absolute values may lead to misinterpretation of CBC data. Current Interpretive Data was last revised on 2017. Monocyte pct 8.5 % [facility] Comment: Interpretive Data Percent cell count reference ranges are not reported, since discordance with absolute values may lead to misinterpretation of CBC data. Current Interpretive Data was last revised on 2017. Eosinophil pct 2.3 % [facility] Comment: Interpretive Data Percent cell count reference ranges are not reported, since discordance with absolute values may lead to misinterpretation of CBC data. Current Interpretive Data was last revised on 2017. Basophil pct 0.3 % [facility] Comment: Interpretive Data Percent cell count reference ranges are not reported, since discordance with absolute values may lead to misinterpretation of CBC data. Current Interpretive Data was last revised on 2017. Blood 05/23/2024 2:30 AM GAUGE AND WEIGH MACHINE ADJUSTER 05/23/2024 1:03 AM GAUGE AND WEIGH MACHINE ADJUSTER us Naila Guzman TOOTH CUTTER PINION LAB BLOOD ORDERABLES Final Result [facility] One [facility] Department of Laboratories [place], [place] [id number] * (ABNORMAL) CBC with auto differential (05/23/2024 2:30 AM GAUGE AND WEIGH MACHINE ADJUSTER) WBC 11.9(H) 3.8 - 9.9 K/cumm Hgb 12.8 11.9 - 15.5 g/dL [facility] Hct 39.6 35.6 - 45.5 % [facility] Plt 254 150 - 400 K/cumm [facility] MPV 9.7 9.1 - 12.[address] [facility] RBC 4.43 3.90 - 5.20 M/cumm [facility] MCV 89.4 81.3 - 96.[address] [facility] MCH 28.9 27.1 - 33.[address] [facility] MCHC 32.3 32.3 - 35.7 g/dL [facility] RDW CV 13.7 11.1 - 14.9 % [facility] RDW SD 44.6 35.7 - 48.[address] [facility] NRBC abs 0.00 0.00 - 0.01 K/cumm [facility] Blood 05/23/2024 2:30 AM GAUGE AND WEIGH MACHINE ADJUSTER 05/23/2024 1:03 AM GAUGE AND WEIGH MACHINE ADJUSTER us Naila Guzman TOOTH CUTTER PINION LAB BLOOD ORDERABLES Final Result Performing Organization Address City/State/[facility] Co de Phone Number [facility] [place] [address] * eGFR (05/23/2024 12:42 AM GAUGE AND WEIGH MACHINE ADJUSTER) eGFR 84 >=60 mL/min/1. 73 m2 Comment: [...] reviewed 2021. Blood 05/23/2024 12:4 2 AM GAUGE AND WEIGH MACHINE ADJUSTER 05/23/2024 1:02 AM GAUGE AND WEIGH MACHINE ADJUSTER Naila Guzman NP LAB BLOOD ORDERABLES Final Result Performing Organization Address [facility] de Phone Number [facility] [place] [address] * Type and screen (05/23/2024 12:42 AM GAUGE AND WEIGH MACHINE ADJUSTER) ABO Rh O Positive Dilcia, indirect Negative [facility] Blood 05/23/2024 12:4 2 AM GAUGE AND WEIGH MACHINE ADJUSTER 05/23/2024 12:52 AM GAUGE AND WEIGH MACHINE ADJUSTER Narrative [facility] - 05/23/2024 1:53 AM GAUGE AND WEIGH MACHINE ADJUSTER Has the patient had Daratumumab or Isatuximab in the past 6 months?->Unknown Naila Guzman NP LAB BLOOD BANK TEST ORDERA BLES Final Result Performing Organization Address [facility] de Phone Number [facility] [place] [address] * Uric acid (05/23/2024 12:42 AM GAUGE AND WEIGH MACHINE ADJUSTER) Pathologist [facility] Uric acid 5.5 2.5 - 7.0 mg/dL Blood 05/23/2024 12:4 2 AM GAUGE AND WEIGH MACHINE ADJUSTER 05/23/2024 1:02 AM GAUGE AND WEIGH MACHINE ADJUSTER Narrative [facility] - 05/23/2024 1:34 AM GAUGE AND WEIGH MACHINE ADJUSTER Monday and only. Morning draw. . Naila Guzman NP LAB BLOOD ORDERABLES Final Result Performing Organization Address [facility] [place] [address] * Phosphorus (05/23/2024 12:42 AM GAUGE AND WEIGH MACHINE ADJUSTER) Phosphorus, pl 4.4 2.3 - 4.5 mg/dL Blood 05/23/2024 12:4 2 AM GAUGE AND WEIGH MACHINE ADJUSTER 05/23/2024 1:02 AM GAUGE AND WEIGH MACHINE ADJUSTER Naila Guzman NP LAB BLOOD ORDERABLES Final Result Performing Organization Address [facility] de Phone Number [facility] [place] [employer] [place] [address] * Magnesium (05/23/2024 12:42 AM GAUGE AND WEIGH MACHINE ADJUSTER) [facility] Magnesium 1.9 1.4 - 2.5 mg/dL Blood 05/23/2024 12:4 2 AM GAUGE AND WEIGH MACHINE ADJUSTER 05/23/2024 1:02 AM GAUGE AND WEIGH MACHINE ADJUSTER Naila Guzman NP LAB BLOOD ORDERABLES Final Result Performing Organization Address [facility] de Phone Number [facility] [place] [employer] [address] * Lactate dehydrogenase (LD) (05/23/2024 12:42 AM GAUGE AND WEIGH MACHINE ADJUSTER) [facility] Lactate dehydrogenase (LDH) 247 100 - 250 Units/L Blood 05/23/2024 12:4 2 AM GAUGE AND WEIGH MACHINE ADJUSTER 05/23/2024 1:02 AM GAUGE AND WEIGH MACHINE ADJUSTER Narrative [facility] - 05/23/2024 1:34 AM GAUGE AND WEIGH MACHINE ADJUSTER Monday and only. Morning draw. Naila Guzman NP LAB BLOOD ORDERABLES Final Result Performing Organization Address [facility] [place] [address] * Comprehensive metabolic panel (05/23/2024 12:42 AM GAUGE AND WEIGH MACHINE ADJUSTER) [facility] Sodium 136 135 - 145 mmol/L Potassium, pl 4.3 3.3 - 4.9 mmol/L [facility] Chloride 101 97 - 110 mmol/L [facility] CO2 29 22 - 32 mmol/L [facility] Anion gap 6 2 - 15 mmol/L [facility] BUN 18 6 - 25 mg/dL [facility] Creatinine 0.77 0.60 - 1.10 mg/dL [facility] Glucose 194 70 - 199 mg/dL [facility] Comment: Interpretive Data Fasting glucose >/= [...] 2022. Calcium 9.5 8.5 - 10.3 mg/dL [facility] Bilirubin, total 0.5 0.1 - 1.2 mg/dL [facility] Protein, pl 7.4 6.5 - 8.5 g/dL [facility] Albumin 3.5 3.5 - 5.0 g/dL [facility] Alk phos 71 40 - 130 Units/L [facility] ALT 19 7 - 45 Units/L [facility] AST 22 10 - 45 Units/L [facility] Blood 05/23/2024 12:4 2 AM GAUGE AND WEIGH MACHINE ADJUSTER 05/23/2024 1:02 AM GAUGE AND WEIGH MACHINE ADJUSTER us Naila Guzman NP LAB BLOOD ORDERABLES Final Result [facility] [place] [address] * (ABNORMAL) POCT glucose (05/22/2024 8:56 PM GAUGE AND WEIGH MACHINE ADJUSTER) [facility] Glucose, POC 210(H) 70 - 199 mg/dL Blood 05/22/2024 8:56 PM GAUGE AND WEIGH MACHINE ADJUSTER 05/22/2024 8:56 PM GAUGE AND WEIGH MACHINE ADJUSTER us Cem Knapp MD LAB POCT ORDERABLES - DEVIC E Final Result Performing Organization Address [facility] Co de Phone Number [facility] [place] [address] * POCT glucose (05/22/2024 6:09 PM GAUGE AND WEIGH MACHINE ADJUSTER) Glucose, POC 142 70 - 199 mg/dL Blood 05/22/2024 6:09 PM GAUGE AND WEIGH MACHINE ADJUSTER 05/22/2024 6:09 PM GAUGE AND WEIGH MACHINE ADJUSTER us Leo Henry MD LAB POCT ORDERABLES - NILESH CE Final Result Performing Organization Address [facility] Co de Phone Number [facility] [place] [address] * POCT glucose (05/22/2024 4:26 PM GAUGE AND WEIGH MACHINE ADJUSTER) Glucose, POC 133 70 - 199 mg/dL Blood 05/22/2024 4:26 PM GAUGE AND WEIGH MACHINE ADJUSTER 05/22/2024 4:26 PM GAUGE AND WEIGH MACHINE ADJUSTER us Leo Henry MD LAB POCT ORDERABLES - NILESH CE Final Result Performing Organization Address [facility] Co de Phone Number [facility] Department [place] [address] * CT Abdomen Pelvis W Contrast (05/22/2024 2:32 PM GAUGE AND WEIGH MACHINE ADJUSTER) Anatomical Region Laterality Modality Body N/A Computed Tomogra phy 05/22/2024 4:35 PM GAUGE AND WEIGH MACHINE ADJUSTER Impressions 05/22/2024 5:16 PM GAUGE AND WEIGH MACHINE ADJUSTER No acute findings within the abdomen or pelvis. Dictated by: Yesi Mendes M.D. The radiology attending physician has personally reviewed this study, and had reviewed and/or edited this written report and agrees with it. Electronically signed by: Kelli Palmer M.D. Narrative 05/22/2024 5:16 PM GAUGE AND WEIGH MACHINE ADJUSTER EXAMINATION: Computed tomography of the abdomen and [...] sult * POCT glucose (05/22/2024 12:58 PM GAUGE AND WEIGH MACHINE ADJUSTER) Glucose, POC 177 70 - 199 mg/dL Blood 05/22/2024 12:5 8 PM GAUGE AND WEIGH MACHINE ADJUSTER 05/22/2024 12:58 PM GAUGE AND WEIGH MACHINE ADJUSTER Leo Henry MD LAB POCT ORDERABLES - NILESH CE Final Result [facility] [place] [address] * (ABNORMAL) POCT glucose (05/22/2024 9:29 AM GAUGE AND WEIGH MACHINE ADJUSTER) Glucose, POC 291(H) 70 - 199 mg/dL Blood 05/22/2024 9:29 AM GAUGE AND WEIGH MACHINE ADJUSTER 05/22/2024 9:29 AM GAUGE AND WEIGH MACHINE ADJUSTER us Leo Henry MD LAB POCT ORDERABLES - NILESH CE Final Result Performing Organization Address City/[facility]/ZIP Co de Phone Number [facility] [place] [address] * POCT glucose (05/22/2024 6:54 AM GAUGE AND WEIGH MACHINE ADJUSTER) Glucose, POC 142 70 - 199 mg/dL Blood 05/22/2024 6:54 AM GAUGE AND WEIGH MACHINE ADJUSTER 05/22/2024 6:54 AM GAUGE AND WEIGH MACHINE ADJUSTER us Jimmie Zavala MD LAB POCT ORDERABLES - DEVICE Fin al Result Performing Organization Address [facility] Co de Phone Number [facility] Department [place] [address] * CT Chest PE (CTA) W Contrast (05/22/2024 1:31 AM GAUGE AND WEIGH MACHINE ADJUSTER) Anatomical Region Laterality Modality Body N/A Computed Tomogra phy 05/22/2024 2:38 AM GAUGE AND WEIGH MACHINE ADJUSTER Impressions 05/22/2024 9:12 AM GAUGE AND WEIGH MACHINE ADJUSTER No pulmonary embolism. Dictated by: Miguel Milligan MD The radiology attending physician has personally reviewed this study, and had reviewed and/or edited this written report and agrees with it. Electronically signed by: Jayson Rockwell M.D. Narrative 05/22/2024 9:12 AM GAUGE AND WEIGH MACHINE ADJUSTER EXAMINATION: CT CHEST PE (CTA) W CONTRAST [...] Result * D-dimer, quantitative (05/22/2024 12:24 AM GAUGE AND WEIGH MACHINE ADJUSTER) D-Dimer 414 <=499 ng/mL FEU Comment: Interpretive [...] on 2019. Blood 05/22/2024 12:2 4 AM GAUGE AND WEIGH MACHINE ADJUSTER 05/22/2024 12:42 AM GAUGE AND WEIGH MACHINE ADJUSTER Angeline Soler MD LAB BLOOD ORDERABLES F inal Result [facility] [place] [address] * Troponin I high-sensitivity 2-hour (05/21/2024 11:09 PM GAUGE AND WEIGH MACHINE ADJUSTER) Trop I hs 5 <=17 ng/L Comment: Interpretive Data For further hscTnI resources including the diagnostic algorithm and an aid in interpretation, copy and paste this link: https://bjhlab.testcatalog.org/show/hsTrop-1 Current Interpretive Data last revised 2019. Trop I hs delta See Comment ng/L [facility] Comment:Inappropriate collec tion time to report a delta. Trop I hs pct delta See Comment % [facility] Comment:Inappropriate collec tion time to report a delta. Trop I hs interp See Comment [facility] Comment:Inappropriate collec tion time to report a delta. Blood 05/21/2024 11:0 9 PM GAUGE AND WEIGH MACHINE ADJUSTER 05/21/2024 11:26 PM GAUGE AND WEIGH MACHINE ADJUSTER us Cira Castro MD LAB BLOOD ORDERABL ES Final Result Performing Organization Address [facility] Co de Phone Number [facility] [place] [address] * (ABNORMAL) Urinalysis reflex to microscopic and culture Urine (05/21/2024 11:09 PM GAUGE AND WEIGH MACHINE ADJUSTER) Color, ur Yellow Yellow Clarity, ur Clear Clear [facility] Specific gravity, ur 1.025 1.003 - 1.[address] [facility] pH, urine 6.[address] [facility] Comment: Interpretive Data U rine pH is affected by diet, medications, systemic acid-base disturbances, and renal tubular function. pH may affect urinary stone formation. For example, urine pH below 6.0 may help reduce the tendency for calcium phosphate stones and pH greater than 6.0 may reduce the tendency for uric acid stone formation. Source: [facility] Current Interpretive Data was last revised on 2017 Protein, ur ql 1+(A) Negative [facility] Glucose, ur ql Negative Negative [facility] Ketones, ur Negative Negative [facility] Bilirubin, ur Negative Negative [facility] Blood, ur Trace(A) Negative [facility] Urobilinogen, ur <2.0 <2.0 mg/dL [facility] Nitrite, ur Positive(A) Negative [facility] Leukocyte esterase, ur 1+(A) Negative [facility] UA reflex comment Reflex to microscopic UA will be performed. [facility] Urine 05/21/2024 11:0 9 PM GAUGE AND WEIGH MACHINE ADJUSTER 05/21/2024 11:22 PM GAUGE AND WEIGH MACHINE ADJUSTER us Angeline Soler MD LAB MICROBIOLOGY - GEN ERAL ORDERABLES Final Result Performing Organization Address City/State/[facility] Co de Phone Number [facility] [place] [address] * Respiratory pathogen panel Nasopharyngeal (05/21/2024 11:09 PM GAUGE AND WEIGH MACHINE ADJUSTER) Pathologist [facility] Influenza A RNA Not Detected Not Detected Influenza B RNA Not Detected Not Detected [facility] RSV RNA Not Detected Not Detected [facility] COVID-19 RNA Not Detected Not Detected [facility] Coronavirus 229E RNA Not Detected Not Detected [facility] Coronavirus HKU1 RNA Not Detected Not Detected [facility] Coronavirus NL63 RNA Not Detected Not Detected [facility] Coronavirus OC43 RNA Not Detected Not Detected [facility] Adenovirus DNA Not Detected Not Detected [facility] Metapneumovirus RNA Not Detected Not Detected [facility] Rhinovirus/Enterov irus RNA Not Detected Not Detected [facility] Parainfluenza 1 RNA Not Detected Not Detected [facility] Parainfluenza 2 RNA Not Detected Not Detected [facility] Parainfluenza 3 RNA Not Detected Not Detected [facility] Parainfluenza 4 RNA Not Detected Not Detected [facility] B. pertussis DNA Not Detected Not Detected [facility] B. parapertussis DNA Not Detected Not Detected [facility] C. pneumoniae DNA Not Detected Not Detected [facility] M. pneumoniae DNA Not Detected Not Detected [facility] Nasopharyngeal 05/21/2024 11 :09 PM GAUGE AND WEIGH MACHINE ADJUSTER 05/22/2024 4:48 AM GAUGE AND WEIGH MACHINE ADJUSTER Narrative [facility] - 05/22/2024 5:55 AM GAUGE AND WEIGH MACHINE ADJUSTER Is the Patient experiencing symptoms consistent with COVID?->No Surveillance testing for transplant patient?->No Interpretive Data The Qbaka FilmArray Respiratory Panel (RP2.1) assay is a [...] assay has FDA clearance for testing of TOOTH CUTTER PINION swabs. The performance of additional specimen types has been assessed by the performing laboratory. The performance characteristics of this assay have been determined by [facility] Molecular Infectious Disease Laboratory. Current interpretive data was last revised on 22. Angeline Soler MD LAB MICROBIOLOGY - GEN ERAL ORDERABLES Final Result [facility] Department [place] [address] * (ABNORMAL) Urinalysis, microscopic only (05/21/2024 11:09 PM GAUGE AND WEIGH MACHINE ADJUSTER) WBC, ur 11-20(A) 0 - 5 /HPF RBC, ur 3-5(A) 0 - 2 /HPF [facility] Epithelial cells, squamous, ur 1-5 0 - 5 /HPF [facility] Bacteria, ur 3+(A) [facility] Yeast, ur Trace(A) [facility] Mucous, ur Present(A) [facility] Culture Reflex Comment Reflex to urine culture will be performed. [facility] Urine 05/21/2024 11:0 9 PM GAUGE AND WEIGH MACHINE ADJUSTER 05/21/2024 11:21 PM GAUGE AND WEIGH MACHINE ADJUSTER us Angeline Soler MD LAB URINE ORDERABLES F inal Result [facility] Department [place] [address] * (ABNORMAL) Urine culture Urine (05/21/2024 11:09 PM GAUGE AND WEIGH MACHINE ADJUSTER) Report Amended Report - Complete: Greater than or equal to 100,000 colonies/mL of Escherichia coli Plus growth of clinically insignificant bacterial yesenia. (.) Organism ESCHERICHIA COLI [facility] Organism PLUS GROWTH OF CLINICALLY INSIGNIFICANT YESENIA. [facility] Urine 05/21/2024 11:0 9 PM GAUGE AND WEIGH MACHINE ADJUSTER 05/22/2024 2:40 AM GAUGE AND WEIGH MACHINE ADJUSTER Narrative [facility] - 05/25/2024 10:36 AM GAUGE AND WEIGH MACHINE ADJUSTER Urine culture reflexed based upon urinalysis results. Testing performed by [id number] Microbiology Laboratory ([phone]) Organism Antibiotic Method Susceptibility Escherichia coli Ampicillin [...] Result - Final Performing Organization Address City/[facility]/ZIP Co de Phone Number [facility] [place] [address] * POCT glucose (05/21/2024 8:55 PM GAUGE AND WEIGH MACHINE ADJUSTER) Pathologist [facility] Glucose, POC 139 70 - 199 mg/dL Blood 05/21/2024 8:55 PM GAUGE AND WEIGH MACHINE ADJUSTER 05/21/2024 8:55 PM GAUGE AND WEIGH MACHINE ADJUSTER Notinfile Unknown LAB POCT ORDERABLES - DEVICE F inal Result Performing Organization Address [facility] de Phone Number [facility] [place] [address] * Troponin I high-sensitivity 4-hour (05/21/2024 7:26 PM GAUGE AND WEIGH MACHINE ADJUSTER) [facility] Trop I hs 4 <=17 ng/L Comment: Interpretive Data For further hscTnI resources including the diagnostic algorithm and an aid in interpretation, copy and paste this link: https://bjhlab.testcatalog.org/show/hsTrop-1 Current Interpretive Data last revised 2019. Trop I hs delta -1 ng/L [facility] Trop I hs interp Insignificant [facility] Blood 05/21/2024 7:26 PM GAUGE AND WEIGH MACHINE ADJUSTER 05/21/2024 7:37 PM GAUGE AND WEIGH MACHINE ADJUSTER Cira Castro MD LAB BLOOD ORDERABL ES Final Result Performing Organization Address [facility]/[place] [address] * Troponin I high-sensitivity series (baseline, 2hr, 4hr, 6hr) (05/21/2024 4:20 PM GAUGE AND WEIGH MACHINE ADJUSTER) Trop I hs 5 <=17 ng/L Comment: Interpretive Data For further hscTnI resources including the diagnostic algorithm and an aid in interpretation, copy and paste this link: https://bjhlab.testcatalog.org/show/hsTrop-1 Current Interpretive Data last revised 2019. Blood 05/21/2024 4:20 PM GAUGE AND WEIGH MACHINE ADJUSTER 05/21/2024 4:50 PM GAUGE AND WEIGH MACHINE ADJUSTER us Jimmie Zavala MD LAB BLOOD ORDERABLES Final Resul t Performing Organization Address [facility] Co de Phone Number [facility] [employer] [place] [address] * eGFR (05/21/2024 4:20 PM GAUGE AND WEIGH MACHINE ADJUSTER) eGFR >90 >=60 mL/min/1. 73 m2 Comment: [...] last reviewed 2021. Blood 05/21/2024 4:20 PM GAUGE AND WEIGH MACHINE ADJUSTER 05/21/2024 4:50 PM GAUGE AND WEIGH MACHINE ADJUSTER us Jimmie Zavala MD LAB BLOOD ORDERABLES Final Resul t [facility] [place] [address] * (ABNORMAL) Differential, auto (05/21/2024 4:20 PM GAUGE AND WEIGH MACHINE ADJUSTER) Neutrophil abs 8.0(H) 1.5 - 6.5 K/cumm Imm gran abs 0.0 0.0 - 0.1 K/cumm [facility] Lymphocyte abs 2.4 0.8 - 3.3 K/cumm [facility] Monocyte abs 0.8 0.2 - 0.8 K/cumm [facility] Eosinophil abs 0.2 0.0 - 0.5 K/cumm [facility] Basophil abs 0.0 0.0 - 0.1 K/cumm [facility] Neutrophil pct 69.4 % [facility] Comment: Interpretive Data Percent cell count reference ranges are not reported, since discordance with absolute values may lead to misinterpretation of CBC data. Current Interpretive Data was last revised on 2017. Imm gran pct 0.4 % [facility] Comment: Interpretive Data Percent cell count reference ranges are not reported, since discordance with absolute values may lead to misinterpretation of CBC data. Current Interpretive Data was last revised on 2017. Lymphocyte pct 21.4 % [facility] Comment: Interpretive Data Percent cell count reference ranges are not reported, since discordance with absolute values may lead to misinterpretation of CBC data. Current Interpretive Data was last revised on 2017. Monocyte pct 6.7 % [facility] Comment: Interpretive Data Percent cell count reference ranges are not reported, since discordance with absolute values may lead to misinterpretation of CBC data. Current Interpretive Data was last revised on 2017. Eosinophil pct 1.8 % [facility] Comment: Interpretive Data Percent cell count reference ranges are not reported, since discordance with absolute values may lead to misinterpretation of CBC data. Current Interpretive Data was last revised on 2017. Basophil pct 0.3 % [facility] Comment: Interpretive Data Percent cell count reference ranges are not reported, since discordance with absolute values may lead to misinterpretation of CBC data. Current Interpretive Data was last revised on 2017. Blood 05/21/2024 4:20 PM GAUGE AND WEIGH MACHINE ADJUSTER 05/21/2024 4:50 PM GAUGE AND WEIGH MACHINE ADJUSTER Jimmie Zavala MD LAB BLOOD ORDERABLES Final Resul t Performing Organization Address City/[facility]/ZIP Co de Phone Number [facility] Department [place] [address] * (ABNORMAL) CBC with auto differential (05/21/2024 4:20 PM GAUGE AND WEIGH MACHINE ADJUSTER) Pathologist [facility] WBC 11.4(H) 3.8 - 9.9 K/cumm Hgb 14.0 11.9 - 15.5 g/dL [facility] Hct 43.6 35.6 - 45.5 % [facility] Plt 286 150 - 400 K/cumm [facility] MPV 9.9 9.1 - 12.[address] [facility] RBC 4.83 3.90 - 5.20 M/cumm [facility] MCV 90.3 81.3 - 96.[address] [facility] MCH 29.0 27.1 - 33.[address] [facility] MCHC 32.1(L) 32.3 - 35.7 g/dL [facility] RDW CV 13.6 11.1 - 14.9 % [facility] RDW SD 45.6 35.7 - 48.[address] [facility] NRBC abs 0.00 0.00 - 0.01 K/cumm [facility] Blood Venous blood specimen / Unknown 05/21/2024 4:20 PM GAUGE AND WEIGH MACHINE ADJUSTER 05/21/2024 4:50 PM GAUGE AND WEIGH MACHINE ADJUSTER us Jimmie Zavala MD LAB BLOOD ORDERABLES Final Resul t Performing Organization Address City/[facility]/ZIP Co de Phone Number [facility] Department [place] [address] * (ABNORMAL) Hemoglobin A1c (05/21/2024 4:20 PM GAUGE AND WEIGH MACHINE ADJUSTER) Hgb A1C 8.7(H) 4.0 - 5.6 % Estimated Average Glucose 203 mg/dL [facility] Comment: The ADA recommends reporting an estimated Average Glucose (eAG) with all Hemoglobin A1c results using the equation derived from a study of 507 normal and diabetic adults. Minority populations were underrepresented and children were not included. (Diabetes Care 2020; 43(S1): S66-S76). The eAG is not equivalent to a fasting glucose. Blood 05/21/2024 4:20 PM GAUGE AND WEIGH MACHINE ADJUSTER 05/21/2024 4:55 PM GAUGE AND WEIGH MACHINE ADJUSTER Leo Henry MD LAB BLOOD ORDERABLES Final Result [facility] [place] [address] * (ABNORMAL) Lipid panel (05/21/2024 4:20 PM GAUGE AND WEIGH MACHINE ADJUSTER) Cholesterol 205(H) 30 - 199 mg/dL Comment: [...] Triglycerides 92 <=149 mg/dL [facility] Comment: Interpretive Data Ages < or [...] revised on 2017. HDL 55 >=40 mg/dL [facility] Comment: Interpretive Data Ages < or [...] on 2017. LDL, calculated 134(H) <=129 mg/dL [facility] Comment: Interpretive Data Ages < or [...] revised on 2023. Non-HDL Cholesterol 150 mg/dL [facility] Comment: Interpretive Data Ages < or [...] last revised on 2017. Chol/HDL ratio [address] [facility] Blood 05/21/2024 4:20 PM GAUGE AND WEIGH MACHINE ADJUSTER 05/21/2024 4:50 PM GAUGE AND WEIGH MACHINE ADJUSTER [facility]ative [facility] 05/22/[facility]24 4:17 PM GAUGE AND WEIGH MACHINE ADJUSTER Reflex Leo Henry MD LAB BLOOD ORDERABLES Final Result [facility] [place] [address] * Comprehensive metabolic panel (05/21/2024 4:20 PM GAUGE AND WEIGH MACHINE ADJUSTER) Sodium 140 135 - 145 mmol/L Potassium, pl 4.3 3.3 - 4.9 mmol/L [facility] Chloride 100 97 - 110 mmol/L [facility] CO2 29 22 - 32 mmol/L [facility] Anion gap 11 2 - 15 mmol/L [facility] BUN 14 6 - 25 mg/dL [facility] Creatinine 0.63 0.60 - 1.10 mg/dL [facility] Glucose 119 70 - 199 mg/dL [facility] Comment: Interpretive Data Fasting glucose >/= [...] 2022. Calcium 10.0 8.5 - 10.3 mg/dL [facility] Bilirubin, total 0.7 0.1 - 1.2 mg/dL [facility] Protein, pl 8.5 6.5 - 8.5 g/dL [facility] Albumin 3.9 3.5 - 5.0 g/dL [facility] Alk phos 83 40 - 130 Units/L [facility] ALT 23 7 - 45 Units/L [facility] AST 22 10 - 45 Units/L [facility] Blood 05/21/2024 4:20 PM GAUGE AND WEIGH MACHINE ADJUSTER 05/21/2024 4:50 PM GAUGE AND WEIGH MACHINE ADJUSTER us Jimmie Zavala MD LAB BLOOD ORDERABLES Final Resul t [facility] Department [place] [address] * XR Chest Pa Lateral 2 Views (05/21/2024 2:23 PM GAUGE AND WEIGH MACHINE ADJUSTER) Anatomical Region Laterality Modality Body, Chest N/A Computed Radiogr aphy 05/21/2024 2:28 PM GAUGE AND WEIGH MACHINE ADJUSTER Impressions 05/21/2024 2:36 PM GAUGE AND WEIGH MACHINE ADJUSTER The current study is compared with the [...] Jaime Neves M.D. Narrative 05/21/2024 2:36 PM GAUGE AND WEIGH MACHINE ADJUSTER EXAMINATION: 2 view chest radiograph Procedure Note [...] Result * POCT glucose (05/21/2024 1:39 PM GAUGE AND WEIGH MACHINE ADJUSTER) Glucose, POC 113 70 - 199 mg/dL Blood 05/21/2024 1:39 PM GAUGE AND WEIGH MACHINE ADJUSTER 05/21/2024 1:39 PM GAUGE AND WEIGH MACHINE ADJUSTER us Notinfile Unknown LAB POCT ORDERABLES - DEVICE F inal Result [facility] [place] [address] * ECG 12-LEAD (05/21/2024 1:36 PM GAUGE AND WEIGH MACHINE ADJUSTER) Narrative [facility] - 05/21/2024 1:36 PM GAUGE AND WEIGH MACHINE ADJUSTER Gil Mcgrath MD 05/21/2024 1:37 PM ECG [...] Zavala MD ECG ORDERABLES Final Result [facility] * US Axillary Breast Left (05/21/2024 12:13 PM GAUGE AND WEIGH MACHINE ADJUSTER) Anatomical Region Laterality Modality Upper Extremities Left Ultrasound 05/21/2024 12:2 3 PM GAUGE AND WEIGH MACHINE ADJUSTER Impressions 05/21/2024 12:23 PM GAUGE AND WEIGH MACHINE ADJUSTER 1. Limited ultrasound due to extensive edema [...] Alicia Wilcox M.D. Narrative 05/21/2024 12:23 PM GAUGE AND WEIGH MACHINE ADJUSTER EXAMINATION: LEFT AXILLARY ULTRASOUND HISTORY: Patient is [...] culture Urine, clean voided (05/14/2024 4:50 PM GAUGE AND WEIGH MACHINE ADJUSTER) Color, ur Straw Yellow Clarity, ur Clear Clear [facility] Specific gravity, ur 1.025 1.003 - 1.030 [facility] pH, urine 5.[address] [facility] Comment: Interpretive Data U rine pH is affected by diet, medications, systemic acid-base disturbances, and renal tubular function. pH may affect urinary stone formation. For example, urine pH below 6.0 may help reduce the tendency for calcium phosphate stones and pH greater than 6.0 may reduce the tendency for uric acid stone formation. Source: [email or web address].[employer] Current Interpretive Data was last revised on 2017 Protein, ur ql Trace Negative [facility] Glucose, ur ql Negative Negative [facility] Ketones, ur Negative Negative [facility] Bilirubin, ur Negative Negative [facility] Blood, ur Trace(A) Negative [facility] Urobilinogen, ur <2.0 <2.0 mg/dL [facility] Nitrite, ur Negative Negative [facility] Leukocyte esterase, ur Negative Negative [facility] UA reflex comment Reflex to microscopic UA will be performed. [facility] Urine, clean voided 05/14/2024 4:50 PM GAUGE AND WEIGH MACHINE ADJUSTER 05/14/2024 7:18 PM GAUGE AND WEIGH MACHINE ADJUSTER Khris Arthur MD LAB MICROBIOLOGY - G ENERAL ORDERABLES Final Result Performing Organization Address [facility] de Phone Number [facility] [place] [address] * (ABNORMAL) Urinalysis, microscopic only (05/14/2024 4:50 PM GAUGE AND WEIGH MACHINE ADJUSTER) WBC, ur 0-5 0 - 5 /HPF RBC, ur 0-2 0 - 2 /HPF [facility] Epithelial cells, squamous, ur 1-5 0 - 5 /HPF [facility] Bacteria, ur Trace(A) [facility] Mucous, ur Present(A) [facility] Culture Reflex Comment Reflex conditions for urine culture (WBC >10) not met. [facility] Urine, clean voided 05/14/2024 4:50 PM GAUGE AND WEIGH MACHINE ADJUSTER 05/14/2024 7:18 PM GAUGE AND WEIGH MACHINE ADJUSTER Khris Arthur MD LAB URINE ORDERABLES Final Result Performing Organization Address [facility] Co de Phone Number [facility] [place] [address] * XR Ribs Left 2 Views (05/14/2024 4:44 PM GAUGE AND WEIGH MACHINE ADJUSTER) Anatomical Region Laterality Modality Rib, Chest Left Digital Radiogra phy 05/14/2024 4:54 PM GAUGE AND WEIGH MACHINE ADJUSTER Impressions 05/14/2024 4:54 PM GAUGE AND WEIGH MACHINE ADJUSTER 1. No displaced left rib fracture. Electronically signed by: Jamshid Penny 05/14/2024 4:54 PM GAUGE AND WEIGH MACHINE ADJUSTER EXAMINATION: XR RIBS LEFT 2 VIEWS HISTORY: [...] Bone mineral density was performed on a HoloHelpr Discovery Densitometer. Based on machine cross-calibration and [...] by the International Society of Clinical Densitometry. [id number] us Khris Arthur MD IMG DXA PROCEDURES [...] agrees with it. ACC# Date Time Exam [id number] Aug 19, 2016 14:27:00 [facility] 09315 Diag Mamm, inc CAD, unilat L Technologist(s): Carla Harris; ; [id number] Aug 19, 2016 15:39:00 [facility] 38411 Breast US unilateral, ltd L ACC# Date Time Exam [id number] Aug 19, 2016 14:27:00 C 98577 Diag Mamm, inc CAD, unilat L Technologist(s): Carla Harris; ; [id number] Aug 19, 2016 15:39:00 C 11580 Breast US unilateral, ltd L EXAMINATION: LEFT [...] SARABIA M.D. on Aug 19 2016 4:20P [id number] Procedure Note Miscellaneous, Not In File / Provider, MD Tyler - 09/17/2016 ANTHONY SARABIA M.D. JUDY RINCON M.D. FINAL REPORT The radiology attending physician has personally reviewed this study, and has reviewed and/or edited this written report and agrees with it. ACC# Date Time Exam [id number] Aug 19, 2016 14:27:00 [facility] 32516 Diag Mamm, inc CAD, unilat L Technologist(s): Carla Harris; ; [id number] Aug 19, 2016 15:39:00 [facility] 84027 Breast US unilateral, ltd L ACC# Date Time Exam [id number] Aug 19, 2016 14:27:00 C 83028 Diag Mamm, inc CAD, unilat L Technologist(s): Carla Harris; ; [id number] Aug 19, 2016 15:39:00 [facility] 46810 Breast US unilateral, ltd L EXAMINATION: LEFT [...] SARABIA M.D. on Aug 19 2016 4:20P [id number] us Not In File Miscellaneous IMG MAMMO PROCEDURES F inal Result from Last 3 Months or Most Recently Relevant to Health Maintenance Insurance [facility] MEDICARE ADVANTAGE [facility] MEDICARE ADVANTAGE Advance Directives For more information, please contact: [phone] Documents on File Type Date Recorded Patient Form Press Operator Expl anation ADVANCE DIRECTIVE 12/23/2021 2:49 PM Power of Leg Man-Medical ADVANCE DIRECTIVE 12/23/2021 2:49 PM Living Will [...] Communication Yunior Marques Daughter Health Care Agent [phone] (Mobile) Jimmie Marques Spouse First Alternate Health Care Agent Care Teams Director Of Cardiology Relationship Specialty Start Date End Date Justen Gale MD [address] [address] PCP - General 10/09/17 Liu Jerez MD Consulting Physician Gastroenterology 07/28/17 [place] [id number] [facility] [address] [place] [address] Consulting Physician Pulmonary Disease 08/03/17 Khris Arthur MD [address] [facility] [address] [place] [address] Medical Oncologist/Booth Supervisor Medical Oncology 10/23/17 [place] [address] [facility] [address] [place] [address] Surgeon Orthopedic Surgery 10/23/17 [place] [address] [facility] [address] [place] [address] Consulting Physician Pain Management 10/23/17 [place] [address] [facility] [address] [place] [address] Referring Physician General Surgery 01/26/18 [place] [address] [facility] [address] [place] [address] Consulting Physician Neurology 01/26/18
--- OUTSIDE RECORDS SUMMARY | 2024-08-05 17:46 | XMS_ITS | Clinical Summary ---
Author Organization [facility] Address [address] [place] [address] Care Team Providers Care Manager Subway Name Role Phone Liu Jerez MD Unavailable [phone] Albert Corbin MD Unavailable [phone] Justen Gale MD Primary Care Provider Khris Arthur MD Unavailable [phone] Ko Melendez MD Unavailable John Paul Moyer MD Unavailable Annel Rod MD Unavailable Anali MARSHALL MD, Carlos M. 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 inhibitors 10/17/2019 Thyroid [...] complication, without long-term current use of insulin ([facility]) 10/23/2017 Assessment & Plan (10/23/2017 [...] 10/13/2017 Assessment & Plan (05/22/2024 12:29 PM ENGINE GENERATOR ASSEMBLER): -Hx stage II, ER positive, HER2 negative [...] 08/01/2017 Assessment & Plan (05/22/2024 12:33 PM ENGINE GENERATOR ASSEMBLER): -Hx LUL -Hospital provided CPAP ordered History of DVT (deep vein thrombosis) 08/01/2017 History of pulmonary embolism 08/01/2017 Generalized weakness 07/27/2017 Dyspnea 07/27/2017 Unintentional weight loss 07/27/2017 Acute cystitis without hematuria 07/27/2017 Nausea and vomiting 07/26/2017 Overview (07/28/2017): Added automatically from request for surgery [id number] Pulmonary embolism 08/09/2016 Assessment & Plan (10/23/2017 2:05 AM CDT): On Rivaroxaban Lymphedema of left upper extremity 08/09/2016 Assessment & Plan (05/25/2024 7:53 AM ENGINE GENERATOR ASSEMBLER): S/p L axillary lymph node dissection 2014, [...] syndrome Assessment & Plan (05/22/2024 11:18 AM ENGINE GENERATOR ASSEMBLER): -continue home Requip 5mg nightly Pain of lower extremity 03/12/2013 Overview (07/29/2016): Leg pain Essential hypertension Assessment & Plan (05/23/2024 10:42 AM ENGINE GENERATOR ASSEMBLER): -Chart history of HTN but not on meds -BP elevated on admission, likely some pain contributing -Monitor closely once pain under adequate control, discussed following up with PCP for this Chronic anticoagulation Restless leg syndrome 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 Type 2 diabetes mellitus without complication Assessment & Plan (05/24/2024 1:39 PM ENGINE GENERATOR ASSEMBLER): -Last Ha1c 8.4 in 2023, repeat 8.7 [...] CDT - 07/01/2024 10:18 PM CDT Emergency [facility] Emergency Department [facility] [place], [place] [id number] Myalgia (Primary Dx); Viral syndrome Discharge Disposition: Discharge to home or self care 05/30/2024 Orders Only [facility] [address] [facility] [address] [place] [address] Radha Mcgrath RN Lymphedema of left arm (Primary Dx); Malignant neoplasm of upper-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, unspecified estrogen receptor status (HCC); Malignant neoplasm of overlapping sites of left female breast, unspecified estrogen receptor status (HCC); Malignant neoplasm of female breast, unspecified estrogen receptor status, unspecified laterality, unspecified site of breast (HCC) 05/24/2024 Telephone [facility] [address] [place] [address] Radha Warner RN 05/23/2024 8:10 AM ENGINE GENERATOR ASSEMBLER Ancillary Procedure [facility] IP [address] [facility] [address] [place] [address] 05/21/2024 9:12 PM ENGINE GENERATOR ASSEMBLER - 05/26/2024 6:45 PM ENGINE GENERATOR ASSEMBLER Hospital Encounter [facility] [address] [place] [address] Jimmie Zavala MD Liss, MD Ra Parnell, MD Sebastian Claros Rehan, MD Left arm pain (Primary Dx); Left leg pain; Shortness of breath; Urinary tract infection without hematuria, site unspecified; Allergy to drug Discharge Disposition: Discharge to home or self care 05/21/2024 12:58 PM ENGINE GENERATOR ASSEMBLER - 05/21/2024 11:59 PM ENGINE GENERATOR ASSEMBLER Hospital Encounter [facility] [address] [place] [address] Discharge Disposition: Discharge to home or self care 05/21/2024 11:00 AM ENGINE GENERATOR ASSEMBLER - 05/21/2024 11:59 PM ENGINE GENERATOR ASSEMBLER Hospital Encounter [facility] - Breast Imaging [facility] [address] [place] [address] History of breast cancer; Axillary pain, left Discharge Disposition: Discharge to home or self care 05/16/2024 Telephone [facility] [address] [place] [address] 8 [place] [phone] Jeanine Ba, Cordelia 05/16/2024 Orders Only [facility] [address] [place] [address] 8 [place] [phone] Radha Mcgrath RN History of breast cancer (Primary Dx); Axillary pain, left 05/16/2024 Orders Only [facility] [address] [place] [address] 8 [place] [phone] Khris Arthur MD Swelling of left upper extremity (Primary Dx); Swelling of left lower extremity 05/14/2024 4:45 PM ENGINE GENERATOR ASSEMBLER Lab [facility] - Lab Collection [facility] [address] [place] [address] Malignant neoplasm of upper-inner quadrant of left breast in female, estrogen receptor positive (HCC) 05/14/2024 4:36 PM ENGINE GENERATOR ASSEMBLER - 05/14/2024 11:59 PM ENGINE GENERATOR ASSEMBLER Hospital Encounter [facility] Imaging [address] [facility] [address] [place] [address] Malignant neoplasm of upper-inner quadrant of left breast in female, estrogen receptor positive (HCC) Discharge Disposition: Discharge to home or self care 05/14/2024 4:00 PM ENGINE GENERATOR ASSEMBLER Lab [facility] Lab [address] [place] [address] Malignant neoplasm of upper-inner quadrant of left breast in female, estrogen receptor positive (HCC) 05/14/2024 3:30 PM ENGINE GENERATOR ASSEMBLER Office Visit [facility] [address] [place] [address] Khris Arthur MD Swelling of [...] drink = 0.6 oz pur e alcohol) [employer] Utilities Answer Date Recorded In the past 12 months has [employer], gas, oil, or water [employer] threatened to shut off services in your [...] often do you attend chur ch or christian services? More than 4 times per year 05/24/2024 Do you belong to any clubs o r organizations such as faith groups, unions, fraternal or athletic groups, or [...] slept in a fdc (including now)? No 08/15/2023 Housing Stability Vital Sign Answer [place] e Recorded In the last 12 months, was t here a time when you were not able to pay the mortgage or rent on time? No 05/24/2024 In the past 12 months, how m any times have you moved where you were living? 0 05/24/2024 At any time in the past 12 m [facility], were you homeless or living in a fdc (including now)? No 05/24/2024 Personal Safety Answer Date Recorded Have you ever been in or are you currently in a harmful physical or emotional relationship or is someone making you feel afraid or unsafe? Denies 07/01/2024 Comments No Sex and Gender Information Value Date Recorded Sex Assigned at Not on file Legal Sex Female 12:24 AM ENGINE GENERATOR ASSEMBLER Gender Identity Not on file Sexual [...] GLUCOSE DEVICE Routine 05/26/2024 4 :27 PM ENGINE GENERATOR ASSEMBLER POCT GLUCOSE DEVICE Routine 05/26/2024 1 1:38 AM ENGINE GENERATOR ASSEMBLER POCT GLUCOSE DEVICE Routine 05/26/2024 8 :12 AM ENGINE GENERATOR ASSEMBLER EGFR Routine 05/26/2024 12:05 AM ENGINE GENERATOR ASSEMBLER DIFFERENTIAL AUTO Routine 05/26/2024 12: 05 AM ENGINE GENERATOR ASSEMBLER PHOSPHORUS Routine 05/26/2024 12:05 AM ENGINE GENERATOR ASSEMBLER COMPREHENSIVE METABOLIC PANEL Routine 05/26/2024 12:05 AM ENGINE GENERATOR ASSEMBLER MAGNESIUM Routine 05/26/2024 12:05 AM ENGINE GENERATOR ASSEMBLER CBC WITH AUTO DIFFERENTIAL Routine 05/26/2024 12:05 AM ENGINE GENERATOR ASSEMBLER POCT GLUCOSE DEVICE Routine 05/25/2024 7 :44 PM ENGINE GENERATOR ASSEMBLER POCT GLUCOSE DEVICE Routine 05/25/2024 5 :24 PM ENGINE GENERATOR ASSEMBLER POCT GLUCOSE DEVICE Routine 05/25/2024 1 1:37 AM ENGINE GENERATOR ASSEMBLER POCT GLUCOSE DEVICE Routine 05/25/2024 7 :27 AM ENGINE GENERATOR ASSEMBLER EGFR Routine 05/25/2024 12:20 AM ENGINE GENERATOR ASSEMBLER DIFFERENTIAL AUTO Routine 05/25/2024 12: 20 AM ENGINE GENERATOR ASSEMBLER PHOSPHORUS Routine 05/25/2024 12:20 AM ENGINE GENERATOR ASSEMBLER COMPREHENSIVE METABOLIC PANEL Routine 05/25/2024 12:20 AM ENGINE GENERATOR ASSEMBLER MAGNESIUM Routine 05/25/2024 12:20 AM ENGINE GENERATOR ASSEMBLER CBC WITH AUTO DIFFERENTIAL Routine 05/25/2024 12:20 AM ENGINE GENERATOR ASSEMBLER POCT GLUCOSE DEVICE Routine 05/24/2024 8 :13 PM ENGINE GENERATOR ASSEMBLER POCT GLUCOSE DEVICE Routine 05/24/2024 5 :17 PM ENGINE GENERATOR ASSEMBLER POCT GLUCOSE DEVICE Routine 05/24/2024 1 2:49 PM ENGINE GENERATOR ASSEMBLER POCT GLUCOSE DEVICE Routine 05/24/2024 9 :22 AM ENGINE GENERATOR ASSEMBLER HERPES SIMPLEX VIRUS (HSV) PCR Routine 05/24/2024 8:47 AM ENGINE GENERATOR ASSEMBLER POCT GLUCOSE DEVICE Routine 05/24/2024 8 :22 AM ENGINE GENERATOR ASSEMBLER EGFR Routine 05/24/2024 12:29 AM ENGINE GENERATOR ASSEMBLER DIFFERENTIAL AUTO Routine 05/24/2024 12: 29 AM ENGINE GENERATOR ASSEMBLER PHOSPHORUS Routine 05/24/2024 12:29 AM ENGINE GENERATOR ASSEMBLER COMPREHENSIVE METABOLIC PANEL Routine 05/24/2024 12:29 AM ENGINE GENERATOR ASSEMBLER MAGNESIUM Routine 05/24/2024 12:29 AM ENGINE GENERATOR ASSEMBLER CBC WITH AUTO DIFFERENTIAL Routine 05/24/2024 12:29 AM ENGINE GENERATOR ASSEMBLER POCT GLUCOSE DEVICE Routine 05/23/2024 8 :16 PM ENGINE GENERATOR ASSEMBLER POCT GLUCOSE DEVICE Routine 05/23/2024 6 :14 PM ENGINE GENERATOR ASSEMBLER POCT GLUCOSE DEVICE Routine 05/23/2024 1 2:17 PM ENGINE GENERATOR ASSEMBLER US VEIN DUPLEX LOWER EXTREMITY BILATERAL COMPLETE IP Routine 05/23/2024 11:45 AM ENGINE GENERATOR ASSEMBLER POCT GLUCOSE DEVICE Routine 05/23/2024 8 :16 AM ENGINE GENERATOR ASSEMBLER DIFFERENTIAL AUTO Routine 05/23/2024 2:3 0 AM ENGINE GENERATOR ASSEMBLER CBC WITH AUTO DIFFERENTIAL Routine 05/23/2024 2:30 AM ENGINE GENERATOR ASSEMBLER EGFR Routine 05/23/2024 12:42 AM ENGINE GENERATOR ASSEMBLER LACTATE DEHYDROGENASE Routine 05/23/2024 12:42 AM ENGINE GENERATOR ASSEMBLER URIC ACID Routine 05/23/2024 12:42 AM ENGINE GENERATOR ASSEMBLER TYPE AND SCREEN Timed 05/23/2024 12:42 AM ENGINE GENERATOR ASSEMBLER PHOSPHORUS Routine 05/23/2024 12:42 AM ENGINE GENERATOR ASSEMBLER COMPREHENSIVE METABOLIC PANEL Routine 05/23/2024 12:42 AM ENGINE GENERATOR ASSEMBLER MAGNESIUM Routine 05/23/2024 12:42 AM ENGINE GENERATOR ASSEMBLER POCT GLUCOSE DEVICE Routine 05/22/2024 8 :56 PM ENGINE GENERATOR ASSEMBLER POCT GLUCOSE DEVICE Routine 05/22/2024 6 :09 PM ENGINE GENERATOR ASSEMBLER POCT GLUCOSE DEVICE Routine 05/22/2024 4 :26 PM ENGINE GENERATOR ASSEMBLER CT ABDOMEN PELVIS W CONTRAST ED 05/22/2024 2:32 PM ENGINE GENERATOR ASSEMBLER POCT GLUCOSE DEVICE Routine 05/22/2024 1 2:58 PM ENGINE GENERATOR ASSEMBLER POCT GLUCOSE DEVICE Routine 05/22/2024 9 :29 AM ENGINE GENERATOR ASSEMBLER POCT GLUCOSE DEVICE Routine 05/22/2024 6 :54 AM ENGINE GENERATOR ASSEMBLER CT CHEST PE W CONTRAST ED 05/22/2024 1:31 AM ENGINE GENERATOR ASSEMBLER D-DIMER, QUANTITATIVE Routine 05/22/2024 12:24 AM ENGINE GENERATOR ASSEMBLER URINALYSIS, MICROSCOPIC ONLY Routine 05/21/2024 11:09 PM ENGINE GENERATOR ASSEMBLER TROPONIN I HIGH-SENSITIVITY 2-HOUR Timed 05/21/2024 11:09 PM ENGINE GENERATOR ASSEMBLER URINE CULTURE Routine 05/21/2024 11:09 PM ENGINE GENERATOR ASSEMBLER RESPIRATORY PATHOGEN PANEL Routine 05/21/2024 11:09 PM ENGINE GENERATOR ASSEMBLER URINALYSIS AND REFLEX TO MICROSCOPIC AND CULTURE Routine 05/21/2024 11:09 PM ENGINE GENERATOR ASSEMBLER POCT GLUCOSE DEVICE Routine 05/21/2024 8 :55 PM ENGINE GENERATOR ASSEMBLER TROPONIN I HIGH-SENSITIVITY 4-HOUR Timed 05/21/2024 7:26 PM ENGINE GENERATOR ASSEMBLER LIPID PANEL STAT 05/21/2024 4:20 PM ENGINE GENERATOR ASSEMBLER HEMOGLOBIN A1C STAT 05/21/2024 4:20 PM ENGINE GENERATOR ASSEMBLER EGFR STAT 05/21/2024 4:20 PM ENGINE GENERATOR ASSEMBLER DIFFERENTIAL AUTO STAT 05/21/2024 4:2 0 PM ENGINE GENERATOR ASSEMBLER TROPONIN I HIGH-SENSITIVITY SERIES (BASELINE, 2HR, 4HR, 6HR) STAT 05/21/2024 4:20 PM ENGINE GENERATOR ASSEMBLER COMPREHENSIVE METABOLIC PANEL STAT 05/21/2024 4:20 PM ENGINE GENERATOR ASSEMBLER CBC WITH AUTO DIFFERENTIAL STAT 05/21/2024 4:20 PM ENGINE GENERATOR ASSEMBLER XR CHEST PA LATERAL 2 VIEWS ED 05/21/2024 2:23 PM ENGINE GENERATOR ASSEMBLER POCT GLUCOSE DEVICE Routine 05/21/2024 1 :39 PM ENGINE GENERATOR ASSEMBLER ECG 12-LEAD STAT 05/21/2024 1:36 PM ENGINE GENERATOR ASSEMBLER US AXILLARY LEFT Schedule Routine, Read Routine (OP Routine) 05/21/2024 12:13 PM ENGINE GENERATOR ASSEMBLER History of breast cancer Axillary pain, left URINALYSIS, MICROSCOPIC ONLY Routine 05/14/2024 4:50 PM ENGINE GENERATOR ASSEMBLER Malignant neoplasm of upper-inner quadrant of left breast in female, estrogen receptor positive (HCC) URINALYSIS AND REFLEX TO MICROSCOPIC AND CULTURE Routine 05/14/2024 4:50 PM ENGINE GENERATOR ASSEMBLER Malignant neoplasm of upper-inner quadrant of left breast in female, estrogen receptor positive (HCC) XR RIBS LEFT 2 VIEWS Schedule Routine, Read Routine (OP Routine) 05/14/2024 4:44 PM ENGINE GENERATOR ASSEMBLER Malignant neoplasm of upper-inner quadrant of left [...] breath since last night. 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 AR: VALERY Report ID: [id number] Reading Location: [id number] Procedure Note Juve Gallegos MD - 07/01/2024 [...] Juve Gallegos M.D. AR: VALERY Report ID: [id number] Reading Location: [id number] us Lila MCKEON IMG CT PROCEDURES Final Resu lt * (ABNORMAL) Troponin T high-sensitivity 2-hour (07/01/2024 3:43 PM CDT) Trop T hs 27(H) <=14 ng/L Comment: Interpretive Data For further hscTnT resources including the diagnostic algorithm and an aid in interpretation, copy and paste this link: https://nrl.testcatalog.org/show/[email or web address] Current Interpretive Data last revised 2020. Testing performed by: [address] [address] Trop T hs delta 0 ng/L MARY JANE PHAM Comment:Testing performed by : [address] [address] Trop T hs interp Insignificant MARY JANE PHAM Comment:Testing performed by : [address] [address] Blood 07/01/2024 3:43 PM CDT 07/01/2024 3:52 PM CDT us Ilana Stevens MD LAB BLOOD ORDERABLES F inal Result MARY JANE [address] [facility] Department [place] [address] * (ABNORMAL) Urinalysis reflex to microscopic and culture Urine (07/01/2024 3:43 PM CDT) Color, ur Yellow Yellow Comment:Testing performed by : [address] [address] Clarity, ur Clear Clear MARY JANE PHAM Comment:Testing performed by : [address] [address] Specific gravity, ur 1.020 1.003 - 1.030 MARY JANE PHAM Comment:Testing performed by : [facility], [address] [place] [address], [place]., [address] pH, urine 6.0 MARY JANE Comment: Interpretive Data U rine pH is affected by diet, medications, systemic acid-base disturbances, and renal tubular function. pH may affect urinary stone formation. For example, urine pH below 6.0 may help reduce the tendency for calcium phosphate stones and pH greater than 6.0 may reduce the tendency for uric acid stone formation. Source: [facility] [employer] Current Interpretive Data was last revised on 2017 Testing performed by: [address], [place]., [address] Protein, ur ql Negative Negative MARY JANE Comment:Testing performed by : [address], [place]., [address] Glucose, ur ql 2+(A) Negative MARY JANE Comment:Testing performed by : [address], [place]., [address] Ketones, ur Negative Negative MARY JANE Comment:Testing performed by : [address], [place]., [address] Bilirubin, ur Negative Negative MARY JANE Comment:Testing performed by : [address], [place]., [address] Blood, ur Trace(A) Negative MARY JANE Comment:Testing performed by : [address], [place]., [address] Urobilinogen, ur <2.0 <2.0 mg/dL MARY JANE Comment:Testing performed by : [address], [place]., [address] Nitrite, ur Negative Negative MARY JANE Comment:Testing performed by : [address], [place]., [address] Leukocyte esterase, ur Negative Negative MARY JANE Comment:Testing performed by : [address] [address] UA reflex comment Reflex to microscopic UA will be performed. MARY JANE Comment:Testing performed by : [address], [place]., [address] Urine 07/01/2024 3:43 PM CDT 07/01/2024 3:52 PM CDT Ilana Stevens MD LAB MICROBIOLOGY - GEN ERAL ORDERABLES Final Result Performing Organization Address [facility] de Phone Number MARY JANE [facility] [place] [address] * (ABNORMAL) Urinalysis, microscopic only (07/01/2024 3:43 PM CDT) WBC, ur 0-5 0 - 5 /HPF Comment:Testing performed by : [address] [address] RBC, ur 3-5(A) 0 - 2 /HPF MARY JANE Comment:Testing performed by : [address] [address] Epithelial cells, squamous, ur 1-5 0 - 5 /HPF MARY JANE Comment:Testing performed by : [address] [address] Mucous, ur Present(A) MARY JANE Comment:Testing performed by : [address] [address] Culture Reflex Comment Reflex conditions for urine culture (WBC >10) not met. MARY JANE Comment:Testing performed by : [address] [address] Urine 07/01/2024 3:43 PM CDT 07/01/2024 3:52 PM CDT Ilana Stevens MD LAB URINE ORDERABLES F inal Result Performing Organization Address [facility] Co de Phone Number MARY JANE [address] [facility] [place] [address] * XR Chest 1 Vw Portable (if [...] Romelia Bowen D.O. PS: PS Report ID: [id number] Reading Location: [id number] Procedure Note Romelia Bowen, - 07/01/2024 EXAM [...] Romelia Bowen D.O. PS: PS Report ID: [id number] Reading Location: [id number] Ilana Stevens MD IMG XR PROCEDURES Deann l Result * ECG 12 lead (07/01/2024 2:05 PM CDT) Ventricular Rate EKG/Min 76 BPM [facility] Atrial Rate 76 BPM [facility] MS-Interval (MSEC) 130 ms [facility] QRS-Interval (MSEC) 86 ms [facility] QT-Interval (MSEC) 386 ms [facility] QTc 434 ms [facility] P [place] 26 degrees [facility] R [place] 22 degrees [facility] T [place] 46 degrees [facility] Diagnosis Normal sinus rhythm Normal ECG When compared with ECG of 28-DEC-2023 12:49, No significant change was found Confirmed by DUTCH BURGOS M.D. ([id number]) on 07/01/2024 10:10:22 PM [facility] 07/01/2024 2:05 PM CDT 07/01/2024 10:10 PM CDT us Ilana Stevens MD ECG ORDERABLES Final Result Performing Organization Address City/[facility]/ZIP Co de Phone Number [facility] * (ABNORMAL) Troponin T high-sensitivity series (baseline, 2hr, 4hr, 6hr) (07/01/2024 2:02 PM CDT) Pathologist [facility] Trop T hs 27(H) <=14 ng/L Comment: Interpretive Data For further hscTnT resources including the diagnostic algorithm and an aid in interpretation, copy and paste this link: [email or web address].testcatalog.org/show/[email or web address] Current Interpretive Data last revised 2020. Testing performed by: [facility], [address] [place] [address]., [address] Blood 07/01/2024 2:02 PM CDT 07/01/2024 2:12 PM CDT us Ilana Stevens MD LAB BLOOD ORDERABLES F inal Result MARY JANE [address] [facility] Department [place] [address] * Influenza A/B, RSV, and COVID-19 PCR Nasopharyngeal (07/01/2024 2:02 PM CDT) [facility] COVID-19 RNA Negative Negative Comment:Testing performed by : [address] [address] Influenza A RNA Negative Negative [facility] Comment:Testing performed by : [address] [address] Influenza B RNA Negative Negative [facility] Comment:Testing performed by : [address] [address] RSV RNA Negative Negative [facility] Comment: Interpretive data: Testing performed by [facility]. This test is performed using the [employer] Xpert Xpress CoV-2/Flu/RSV plus assay. This is a multiplex, real-time reverse transcriptase PCR assay intended for the qualitative detection of nucleic acid from SARS-CoV-2, influenza A, influenza B, and respiratory syncytial virus. This assay has been cleared by the [place] Food and Drug administration. The performance characteristics have been verified by the [facility]. Results must be considered in the clinical context, and a negative result does not rule out infection. Interpretive Data last revised 2023 Testing performed by: [address] [address] Nasopharyngeal 07/01/2024 2: 02 PM CDT 07/01/2024 2:12 PM CDT Narrative [facility] - 07/01/2024 2:52 PM CDT Is the Patient experiencing symptoms consistent with COVID?->Yes us Ilana Stevens MD LAB MICROBIOLOGY - GEN ERAL ORDERABLES Final Result [place] [address] [facility] Department [place] [address] * eGFR (07/01/2024 2:02 PM CDT) [facility] eGFR >90 >=60 mL/min/1. 73 m2 [...] was last reviewed 2021. Testing performed by: [address] [address] Blood 07/01/2024 2:02 PM CDT 07/01/2024 2:12 PM CDT us Ilana Stevens MD LAB BLOOD ORDERABLES F inal Result [place] [id number] [facility] Department of Laboratories [place], [place] [id number] * Differential, auto (07/01/2024 2:02 PM CDT) Neutrophil abs 5.3 1.5 - 6.5 K/cumm Comment:Testing performed by : [address] [address] Imm gran abs 0.0 0.0 - 0.1 K/cumm MARY JANE Comment:Testing performed by : [address] [address] Lymphocyte abs 2.6 0.8 - 3.3 K/cumm MARY JANE Comment:Testing performed by : [address] [address] Monocyte abs 0.8 0.2 - 0.8 K/cumm MARY JANE Comment:Testing performed by : [address] [address] Eosinophil abs 0.2 0.0 - 0.5 K/cumm MARY JANE Comment:Testing performed by : [address] [address] Basophil abs 0.0 0.0 - 0.1 K/cumm MARY JANE Comment:Testing performed by : [address] [address] Neutrophil pct 59.1 % [facility] Comment: Interpretive Data Percent cell count reference ranges are not reported, since discordance with absolute values may lead to misinterpretation of CBC data. Current Interpretive Data was last revised on 2017. Testing performed by: [address] [address] Imm gran pct 0.2 % [facility] Comment: Interpretive Data Percent cell count reference ranges are not reported, since discordance with absolute values may lead to misinterpretation of CBC data. Current Interpretive Data was last revised on 2017. Testing performed by: [address] [address] Lymphocyte pct 29.0 % [facility] Comment: Interpretive Data Percent cell count reference ranges are not reported, since discordance with absolute values may lead to misinterpretation of CBC data. Current Interpretive Data was last revised on 2017. Testing performed by: [address] [address] Monocyte pct 9.3 % [facility] Comment: Interpretive Data Percent cell count reference ranges are not reported, since discordance with absolute values may lead to misinterpretation of CBC data. Current Interpretive Data was last revised on 2017. Testing performed by: [address] [address] Eosinophil pct 2.2 % [facility] Comment: Interpretive Data Percent cell count reference ranges are not reported, since discordance with absolute values may lead to misinterpretation of CBC data. Current Interpretive Data was last revised on 2017. Testing performed by: [address] [address] Basophil pct 0.2 % [facility] Comment: Interpretive Data Percent cell count reference ranges are not reported, since discordance with absolute values may lead to misinterpretation of CBC data. Current Interpretive Data was last revised on 2017. Testing performed by: [facility], [address] [place] [address]., [id number] Blood 07/01/2024 2:02 PM CDT 07/01/2024 2:12 PM CDT us Ilana Stevens MD LAB BLOOD ORDERABLES F inal Result MARY JANE [address] [facility] Department [place] [address] * Pro B-type natriuretic peptide [...] Last Revised Date: 2017. Testing performed by: [facility], [address] [place] [address]., [id number] Blood 07/01/2024 2:02 PM CDT 07/01/2024 2:12 PM CDT us Ilana Stevens MD LAB BLOOD ORDERABLES F inal Result [facility] [address] [facility] [place] [address] * (ABNORMAL) CBC with auto differential (07/01/2024 2:02 PM CDT) Pathologist [facility] WBC 9.0 3.8 - 9.9 K/cumm Comment:Testing performed by : [address] [address] Hgb 13.2 11.9 - 15.5 g/dL MARY JANE Comment:Testing performed by : [address], [address] Hct 41.1 35.6 - 45.5 % MARY JANE Comment:Testing performed by : [address] [address] Plt 277 150 - 400 K/cumm MARY JANE Comment:Testing performed by : [address] [address] MPV 9.5 9.1 - 12.3 fL MARY JANE Comment:Testing performed by : [address] [address] RBC 4.53 3.90 - 5.20 M/cumm MARY JANE Comment:Testing performed by : [address] [address] MCV 90.7 81.3 - 96.4 fL MARY JANE Comment:Testing performed by : [address] [address] MCH 29.1 27.1 - 33.3 pg MARY JANE PHAM Comment:Testing performed by : [address] [address] MCHC 32.1(L) 32.3 - 35.7 g/dL MARY JANE Comment:Testing performed by : [address] [place]., [address] RDW CV 13.2 11.1 - 14.9 % MARY JANE PHAM Comment:Testing performed by : [address] [address] RDW SD 44.2 35.7 - 48.1 fL MARY JANE PHAM Comment:Testing performed by : [facility], [address] [place] [address]., [address] NRBC abs 0.00 0.00 - 0.01 K/cumm MARY JANE Comment:Testing performed by : [address] [address] Blood 07/01/2024 2:02 PM CDT 07/01/2024 2:12 PM CDT us Ilana Stevens MD LAB BLOOD ORDERABLES F inal Result MARY JANE [facility] Department [place] [address] * Comprehensive metabolic panel (07/01/2024 2:02 PM CDT) Sodium 137 135 - 145 mmol/L Comment:Testing performed by : [address] [address] Potassium, pl 4.2 3.3 - 4.9 mmol/L MARY JANE Comment:Testing performed by : [address] [address] Chloride 101 97 - 110 mmol/L MARY JANE Comment:Testing performed by : [address] [address] CO2 27 22 - 32 mmol/L MARY JANE Comment:Testing performed by : [address] [address] Anion gap 9 2 - 15 mmol/L MARY JANE Comment:Testing performed by : [address] [address] BUN 15 6 - 25 mg/dL MARY JANE Comment:Testing performed by : [address] [address] Creatinine 0.60 0.60 - 1.10 mg/dL MARY JANE Comment:Testing performed by : [address] [address] Glucose 166 70 - 199 mg/dL MARY [...] was last revised 2022. Testing performed by: [address] [address] Calcium 9.8 8.5 - 10.3 mg/dL MARY JANE Comment:Testing performed by : [address] [address] Bilirubin, total 0.5 0.1 - 1.2 mg/dL MARY JANE Comment:Testing performed by : [address] [address] Protein, pl 8.0 6.5 - 8.5 g/dL MARY JANE Comment:Testing performed by : [address] [address] Albumin 3.8 3.5 - 5.0 g/dL MARY JANE Comment:Testing performed by : [address] [address] Alk phos 72 40 - 130 Units/L MARY JANE Comment:Testing performed by : [address] [address] ALT 19 7 - 45 Units/L MARY JANE Comment:Testing performed by : [address] [address] AST 23 10 - 45 Units/L MARY JANE Comment:Testing performed by : [address] [address] Blood 07/01/2024 2:02 PM CDT 07/01/2024 2:12 PM CDT Ilana Stevens MD LAB BLOOD ORDERABLES F inal Result MARY JANE [address] [facility] Department [place] [address] * POCT glucose (05/26/2024 4:27 PM ENGINE GENERATOR ASSEMBLER) Glucose, POC 137 70 - 199 mg/dL Blood 05/26/2024 4:27 PM ENGINE GENERATOR ASSEMBLER 05/26/2024 4:27 PM ENGINE GENERATOR ASSEMBLER Carlos Real MD LAB POCT ORDERABLES - DEVICE Fin al Result Performing Organization Address [facility] de Phone Number [facility] [place] [address] * POCT glucose (05/26/2024 11:38 AM ENGINE GENERATOR ASSEMBLER) Glucose, POC 146 70 - 199 mg/dL Blood 05/26/2024 11:3 8 AM ENGINE GENERATOR ASSEMBLER 05/26/2024 11:38 AM ENGINE GENERATOR ASSEMBLER Carlos Real MD LAB POCT ORDERABLES - DEVICE Fin al Result Performing Organization Address [facility] Co de Phone Number MARY JANE [facility] [place] [address] * POCT glucose (05/26/2024 8:12 AM ENGINE GENERATOR ASSEMBLER) Glucose, POC 134 70 - 199 mg/dL Blood 05/26/2024 8:12 AM ENGINE GENERATOR ASSEMBLER 05/26/2024 8:12 AM ENGINE GENERATOR ASSEMBLER Carlos Real MD LAB POCT ORDERABLES - DEVICE Fin al Result Performing Organization Address City/[facility] Co de Phone Number MARY JANE [facility] [place] [address] * eGFR (05/26/2024 12:05 AM ENGINE GENERATOR ASSEMBLER) Pathologist [facility] eGFR >90 >=60 mL/min/1. 73 m2 [...] reviewed 2021. Blood 05/26/2024 12:0 5 AM ENGINE GENERATOR ASSEMBLER 05/26/2024 12:23 AM ENGINE GENERATOR ASSEMBLER Carlos Real MD LAB BLOOD ORDERABLES Final Resul t [facility] Department [place] [address] * (ABNORMAL) Differential, auto (05/26/2024 12:05 AM ENGINE GENERATOR ASSEMBLER) Pathologist [facility] Neutrophil abs 6.4 1.5 - 6.5 K/cumm Imm gran abs 0.0 0.0 - 0.1 K/cumm [facility] Lymphocyte abs 2.9 0.8 - 3.3 K/cumm [facility] Monocyte abs 0.9(H) 0.2 - 0.8 K/cumm [facility] Eosinophil abs 0.3 0.0 - 0.5 K/cumm [facility] Basophil abs 0.0 0.0 - 0.1 K/cumm [facility] Neutrophil pct 60.4 % [facility] Comment: Interpretive Data Percent cell count reference ranges are not reported, since discordance with absolute values may lead to misinterpretation of CBC data. Current Interpretive Data was last revised on 2017. Imm gran pct 0.4 % [facility] Comment: Interpretive Data Percent cell count reference ranges are not reported, since discordance with absolute values may lead to misinterpretation of CBC data. Current Interpretive Data was last revised on 2017. Lymphocyte pct 27.5 % [facility] Comment: Interpretive Data Percent cell count reference ranges are not reported, since discordance with absolute values may lead to misinterpretation of CBC data. Current Interpretive Data was last revised on 2017. Monocyte pct 8.2 % [facility] Comment: Interpretive Data Percent cell count reference ranges are not reported, since discordance with absolute values may lead to misinterpretation of CBC data. Current Interpretive Data was last revised on 2017. Eosinophil pct 3.1 % [facility] Comment: Interpretive Data Percent cell count reference ranges are not reported, since discordance with absolute values may lead to misinterpretation of CBC data. Current Interpretive Data was last revised on 2017. Basophil pct 0.4 % [facility] Comment: Interpretive Data Percent cell count reference ranges are not reported, since discordance with absolute values may lead to misinterpretation of CBC data. Current Interpretive Data was last revised on 2017. Blood 05/26/2024 12:0 5 AM ENGINE GENERATOR ASSEMBLER 05/26/2024 12:07 AM ENGINE GENERATOR ASSEMBLER Carlos Real MD LAB BLOOD ORDERABLES Final Resul t [facility] Department [place] [address] * (ABNORMAL) CBC with auto differential (05/26/2024 12:05 AM ENGINE GENERATOR ASSEMBLER) WBC 10.6(H) 3.8 - 9.9 K/cumm Hgb 12.5 11.9 - 15.5 g/dL [facility] Hct 39.2 35.6 - 45.5 % [facility] Plt 248 150 - 400 K/cumm [facility] MPV 9.7 9.1 - 12.3 fL [facility] RBC 4.32 3.90 - 5.20 M/cumm [facility] MCV 90.7 81.3 - 96.4 fL [facility] MCH 28.9 27.1 - 33.3 pg [facility] MCHC 31.9(L) 32.3 - 35.7 g/dL [facility] RDW CV 13.5 11.1 - 14.9 % [facility] RDW SD 45.1 35.7 - 48.1 fL [facility] NRBC abs 0.00 0.00 - 0.01 K/cumm [facility] Blood 05/26/2024 12:0 5 AM ENGINE GENERATOR ASSEMBLER 05/26/2024 12:07 AM ENGINE GENERATOR ASSEMBLER Carlos Real MD LAB BLOOD ORDERABLES Final Resul t Performing Organization Address City/[facility] Co de Phone Number [facility] Department [place] [address] * Phosphorus (05/26/2024 12:05 AM ENGINE GENERATOR ASSEMBLER) Phosphorus, pl 3.2 2.3 - 4.5 mg/dL Blood 05/26/2024 12:0 5 AM ENGINE GENERATOR ASSEMBLER 05/26/2024 12:08 AM ENGINE GENERATOR ASSEMBLER Carlos Real MD LAB BLOOD ORDERABLES Final Resul t [facility] Department [place] [address] * Magnesium (05/26/2024 12:05 AM ENGINE GENERATOR ASSEMBLER) Magnesium 1.8 1.4 - 2.5 mg/dL Blood 05/26/2024 12:0 5 AM ENGINE GENERATOR ASSEMBLER 05/26/2024 12:08 AM ENGINE GENERATOR ASSEMBLER Carlos Real MD LAB BLOOD ORDERABLES Final Resul t Performing Organization Address [facility] Co de Phone Number [facility] Department [place] [address] * (ABNORMAL) Comprehensive metabolic panel (05/26/2024 12:05 AM ENGINE GENERATOR ASSEMBLER) Sodium 136 135 - 145 mmol/L Potassium, pl 4.2 3.3 - 4.9 mmol/L [facility] Chloride 101 97 - 110 mmol/L [facility] CO2 29 22 - 32 mmol/L [facility] Anion gap 6 2 - 15 mmol/L [facility] BUN 19 6 - 25 mg/dL [facility] Creatinine 0.67 0.60 - 1.10 mg/dL [facility] Glucose 164 70 - 199 mg/dL [facility] [...] Calcium 9.4 8.5 - 10.3 mg/dL [facility] Bilirubin, total 0.4 0.1 - 1.2 mg/dL [facility] Protein, pl 7.1 6.5 - 8.5 g/dL [facility] Albumin 3.3(L) 3.5 - 5.0 g/dL [facility] Alk phos 65 40 - 130 Units/L [facility] ALT 17 7 - 45 Units/L [facility] AST 19 10 - 45 Units/L [facility] Blood 05/26/2024 12:0 5 AM ENGINE GENERATOR ASSEMBLER 05/26/2024 12:08 AM ENGINE GENERATOR ASSEMBLER Carlos Real MD LAB BLOOD ORDERABLES Final Resul t Performing Organization Address City/State/[facility] Co de Phone Number [facility] [place] [address] * POCT glucose (05/25/2024 7:44 PM ENGINE GENERATOR ASSEMBLER) Glucose, POC 160 70 - 199 mg/dL Blood 05/25/2024 7:44 PM ENGINE GENERATOR ASSEMBLER 05/25/2024 7:44 PM ENGINE GENERATOR ASSEMBLER Carlos eRal MD LAB POCT ORDERABLES - DEVICE Fin al Result Performing Organization Address [facility] [place] [address] * POCT glucose (05/25/2024 5:24 PM ENGINE GENERATOR ASSEMBLER) Glucose, POC 152 70 - 199 mg/dL Blood 05/25/2024 5:24 PM ENGINE GENERATOR ASSEMBLER 05/25/2024 5:24 PM ENGINE GENERATOR ASSEMBLER Carlos Real MD LAB POCT ORDERABLES - DEVICE Fin al Result Performing Organization Address [facility] Co de Phone Number [facility] Department [place] [address] * POCT glucose (05/25/2024 11:37 AM ENGINE GENERATOR ASSEMBLER) Glucose, POC 143 70 - 199 mg/dL Blood 05/25/2024 11:3 7 AM ENGINE GENERATOR ASSEMBLER 05/25/2024 11:37 AM ENGINE GENERATOR ASSEMBLER Carlos Real MD LAB POCT ORDERABLES - DEVICE Fin al Result Performing Organization Address [facility] Co de Phone Number [facility] [place] [address] * POCT glucose (05/25/2024 7:27 AM ENGINE GENERATOR ASSEMBLER) Glucose, POC 134 70 - 199 mg/dL Blood 05/25/2024 7:27 AM ENGINE GENERATOR ASSEMBLER 05/25/2024 7:27 AM ENGINE GENERATOR ASSEMBLER Carlos Real MD LAB POCT ORDERABLES - DEVICE Fin al Result Performing Organization Address [facility] Co de Phone Number [facility] [place] [address] * eGFR (05/25/2024 12:20 AM ENGINE GENERATOR ASSEMBLER) Pathologist [facility] eGFR >90 >=60 mL/min/1. 73 m2 [...] reviewed 2021. Blood 05/25/2024 12:2 0 AM ENGINE GENERATOR ASSEMBLER 05/25/2024 12:43 AM ENGINE GENERATOR ASSEMBLER Naila Guzman DIRECTOR LIFE LAB BLOOD ORDERABLES Final Result Performing Organization Address [facility]/ZIP Co de Phone Number [facility] Department [place] [address] * Differential, auto (05/25/2024 12:20 AM ENGINE GENERATOR ASSEMBLER) Pathologist [facility] Neutrophil abs 5.9 1.5 - 6.5 K/cumm Imm gran abs 0.0 0.0 - 0.1 K/cumm [facility] Lymphocyte abs 2.4 0.8 - 3.3 K/cumm [facility] Monocyte abs 0.8 0.2 - 0.8 K/cumm [facility] Eosinophil abs 0.3 0.0 - 0.5 K/cumm [facility] Basophil abs 0.0 0.0 - 0.1 K/cumm [facility] Neutrophil pct 62.6 % [facility] Comment: Interpretive Data Percent cell count reference ranges are not reported, since discordance with absolute values may lead to misinterpretation of CBC data. Current Interpretive Data was last revised on 2017. Imm gran pct 0.3 % [facility] Comment: Interpretive Data Percent cell count reference ranges are not reported, since discordance with absolute values may lead to misinterpretation of CBC data. Current Interpretive Data was last revised on 2017. Lymphocyte pct 24.8 % [facility] Comment: Interpretive Data Percent cell count reference ranges are not reported, since discordance with absolute values may lead to misinterpretation of CBC data. Current Interpretive Data was last revised on 2017. Monocyte pct 8.8 % [facility] Comment: Interpretive Data Percent cell count reference ranges are not reported, since discordance with absolute values may lead to misinterpretation of CBC data. Current Interpretive Data was last revised on 2017. Eosinophil pct 3.2 % [facility] Comment: Interpretive Data Percent cell count reference ranges are not reported, since discordance with absolute values may lead to misinterpretation of CBC data. Current Interpretive Data was last revised on 2017. Basophil pct 0.3 % [facility] Comment: Interpretive Data Percent cell count reference ranges are not reported, since discordance with absolute values may lead to misinterpretation of CBC data. Current Interpretive Data was last revised on 2017. Blood 05/25/2024 12:2 0 AM ENGINE GENERATOR ASSEMBLER 05/25/2024 12:29 AM ENGINE GENERATOR ASSEMBLER us Naila Guzman NP LAB BLOOD ORDERABLES Final Result [facility] [place] [address] * (ABNORMAL) CBC with auto differential (05/25/2024 12:20 AM ENGINE GENERATOR ASSEMBLER) [facility] WBC 9.5 3.8 - 9.9 K/cumm Hgb 12.8 11.9 - 15.5 g/dL [facility] Hct 40.0 35.6 - 45.5 % [facility] Plt 246 150 - 400 K/cumm [facility] MPV 9.8 9.1 - 12.3 fL [facility] RBC 4.42 3.90 - 5.20 M/cumm [facility] MCV 90.5 81.3 - 96.4 fL [facility] MCH 29.0 27.1 - 33.3 pg [facility] MCHC 32.0(L) 32.3 - 35.7 g/dL [facility] RDW CV 13.5 11.1 - 14.9 % [facility] RDW SD 45.3 35.7 - 48.1 fL [facility] NRBC abs 0.00 0.00 - 0.01 K/cumm [facility] Blood 05/25/2024 12:2 0 AM ENGINE GENERATOR ASSEMBLER 05/25/2024 12:29 AM ENGINE GENERATOR ASSEMBLER Naila Guzman NP LAB BLOOD ORDERABLES Final Result Performing Organization Address City/[facility] Co de Phone Number [facility] [place] [address] * Phosphorus (05/25/2024 12:20 AM ENGINE GENERATOR ASSEMBLER) [facility] Phosphorus, pl 3.1 2.3 - 4.5 mg/dL Blood 05/25/2024 12:2 0 AM ENGINE GENERATOR ASSEMBLER 05/25/2024 12:29 AM ENGINE GENERATOR ASSEMBLER Naila Guzman NP LAB BLOOD ORDERABLES Final Result [facility] [place] [address] * Magnesium (05/25/2024 12:20 AM ENGINE GENERATOR ASSEMBLER) Magnesium 1.9 1.4 - 2.5 mg/dL Blood 05/25/2024 12:2 0 AM ENGINE GENERATOR ASSEMBLER 05/25/2024 12:29 AM ENGINE GENERATOR ASSEMBLER Naila Guzman DIRECTOR LIFE LAB BLOOD ORDERABLES Final Result [facility] Department [place] [address] * (ABNORMAL) Comprehensive metabolic panel (05/25/2024 12:20 AM ENGINE GENERATOR ASSEMBLER) Pathologist [facility] Sodium 138 135 - 145 mmol/L Potassium, pl 4.4 3.3 - 4.9 mmol/L [facility] Chloride 101 97 - 110 mmol/L [facility] CO2 29 22 - 32 mmol/L [facility] Anion gap 8 2 - 15 mmol/L [facility] BUN 20 6 - 25 mg/dL [facility] Creatinine 0.69 0.60 - 1.10 mg/dL [facility] Glucose 156 70 - 199 mg/dL [facility] [...] Calcium 9.4 8.5 - 10.3 mg/dL [facility] Bilirubin, total 0.5 0.1 - 1.2 mg/dL [facility] Protein, pl 7.4 6.5 - 8.5 g/dL [facility] Albumin 3.4(L) 3.5 - 5.0 g/dL [facility] Alk phos 67 40 - 130 Units/L [facility] ALT 18 7 - 45 Units/L [facility] AST 16 10 - 45 Units/L [facility] Blood 05/25/2024 12:2 0 AM ENGINE GENERATOR ASSEMBLER 05/25/2024 12:29 AM ENGINE GENERATOR ASSEMBLER Naila Guzman DIRECTOR LIFE LAB BLOOD ORDERABLES Final Result Performing Organization Address [facility] Co de Phone Number [facility] Department [place] [address] * POCT glucose (05/24/2024 8:13 PM ENGINE GENERATOR ASSEMBLER) Glucose, POC 171 70 - 199 mg/dL Blood 05/24/2024 8:13 PM ENGINE GENERATOR ASSEMBLER 05/24/2024 8:13 PM ENGINE GENERATOR ASSEMBLER Carlos Real MD LAB POCT ORDERABLES - DEVICE Fin al Result Performing Organization Address [facility] de Phone Number [facility] Department [place] [address] * POCT glucose (05/24/2024 5:17 PM ENGINE GENERATOR ASSEMBLER) Glucose, POC 133 70 - 199 mg/dL Blood 05/24/2024 5:17 PM ENGINE GENERATOR ASSEMBLER 05/24/2024 5:17 PM ENGINE GENERATOR ASSEMBLER Carlos Real MD LAB POCT ORDERABLES - DEVICE Fin al Result Performing Organization Address [facility] de Phone Number [facility] [place] [address] * POCT glucose (05/24/2024 12:49 PM ENGINE GENERATOR ASSEMBLER) Glucose, POC 180 70 - 199 mg/dL Blood 05/24/2024 12:4 9 PM ENGINE GENERATOR ASSEMBLER 05/24/2024 12:49 PM ENGINE GENERATOR ASSEMBLER Result [facility] Carlos Real MD LAB POCT ORDERABLES - DEVICE Fin al Result Performing Organization Address City/[facility] Co de Phone Number [facility] [place] [address] * POCT glucose (05/24/2024 9:22 AM ENGINE GENERATOR ASSEMBLER) Pathologist [facility] Glucose, POC 139 70 - 199 mg/dL Blood 05/24/2024 9:22 AM ENGINE GENERATOR ASSEMBLER 05/24/2024 9:22 AM ENGINE GENERATOR ASSEMBLER Result [facility] Carlos Real MD LAB POCT ORDERABLES - DEVICE Fin al Result Performing Organization Address [facility] [place] [address] * Herpes Simplex Virus (HSV) PCR Oral (05/24/2024 8:47 AM ENGINE GENERATOR ASSEMBLER) [facility] HSV DNA Not Detected Not Detected [facility] Comment: Interpretive Data This assay is performed [...] reviewed on 08/21/2018 Oral 05/24/2024 8:47 AM ENGINE GENERATOR ASSEMBLER 05/24/2024 9:24 AM ENGINE GENERATOR ASSEMBLER Narrative [facility] - 05/24/2024 4:28 PM ENGINE GENERATOR ASSEMBLER Oral ulcer swab Result [facility] Naila Guzman NP LAB MICROBIOLOGY - GENERAL ORDERABLES Final Result Performing Organization Address City/[facility] Co de Phone Number [facility] [place] [address] [facility] * POCT glucose (05/24/2024 8:22 AM ENGINE GENERATOR ASSEMBLER) Glucose, POC 132 70 - 199 mg/dL Blood 05/24/2024 8:22 AM ENGINE GENERATOR ASSEMBLER 05/24/2024 8:22 AM ENGINE GENERATOR ASSEMBLER Carlos Rael MD LAB POCT ORDERABLES - DEVICE Fin al Result Performing Organization Address City/[facility]/ZIP Co de Phone Number [facility] Department [place] [address] * eGFR (05/24/2024 12:29 AM ENGINE GENERATOR ASSEMBLER) eGFR 87 >=60 mL/min/1. 73 m2 Comment: [...] reviewed 2021. Blood 05/24/2024 12:2 9 AM ENGINE GENERATOR ASSEMBLER 05/24/2024 12:54 AM ENGINE GENERATOR ASSEMBLER us Naila Guzman DIRECTOR LIFE LAB BLOOD ORDERABLES Final Result Performing Organization Address [facility]/ZIP Co de Phone Number [facility] Department [place] [address] * (ABNORMAL) Differential, auto (05/24/2024 12:29 AM ENGINE GENERATOR ASSEMBLER) Neutrophil abs 5.3 1.5 - 6.5 K/cumm Imm gran abs 0.0 0.0 - 0.1 K/cumm [facility] Lymphocyte abs 3.0 0.8 - 3.3 K/cumm [facility] Monocyte abs 0.9(H) 0.2 - 0.8 K/cumm [facility] Eosinophil abs 0.3 0.0 - 0.5 K/cumm [facility] Basophil abs 0.0 0.0 - 0.1 K/cumm [facility] Neutrophil pct 55.8 % [facility] Comment: Interpretive Data Percent cell count reference ranges are not reported, since discordance with absolute values may lead to misinterpretation of CBC data. Current Interpretive Data was last revised on 2017. Imm gran pct 0.4 % [facility] Comment: Interpretive Data Percent cell count reference ranges are not reported, since discordance with absolute values may lead to misinterpretation of CBC data. Current Interpretive Data was last revised on 2017. Lymphocyte pct 31.4 % [facility] Comment: Interpretive Data Percent cell count reference ranges are not reported, since discordance with absolute values may lead to misinterpretation of CBC data. Current Interpretive Data was last revised on 2017. Monocyte pct 9.0 % [facility] Comment: Interpretive Data Percent cell count reference ranges are not reported, since discordance with absolute values may lead to misinterpretation of CBC data. Current Interpretive Data was last revised on 2017. Eosinophil pct 3.0 % [facility] Comment: Interpretive Data Percent cell count reference ranges are not reported, since discordance with absolute values may lead to misinterpretation of CBC data. Current Interpretive Data was last revised on 2017. Basophil pct 0.4 % [facility] Comment: Interpretive Data Percent cell count reference ranges are not reported, since discordance with absolute values may lead to misinterpretation of CBC data. Current Interpretive Data was last revised on 2017. Blood 05/24/2024 12:2 9 AM ENGINE GENERATOR ASSEMBLER 05/24/2024 12:54 AM ENGINE GENERATOR ASSEMBLER Naila Guzman NP LAB BLOOD ORDERABLES Final Result Performing Organization Address City/[facility]/ZIP Co de Phone Number [facility] [place] [address] * CBC with auto differential (05/24/2024 12:29 AM ENGINE GENERATOR ASSEMBLER) Pathologist [facility] WBC 9.5 3.8 - 9.9 K/cumm Hgb 12.6 11.9 - 15.5 g/dL [facility] Hct 39.0 35.6 - 45.5 % [facility] Plt 223 150 - 400 K/cumm [facility] MPV 9.6 9.1 - 12.3 fL [facility] RBC 4.23 3.90 - 5.20 M/cumm [facility] MCV 92.2 81.3 - 96.4 fL [facility] MCH 29.8 27.1 - 33.3 pg [facility] MCHC 32.3 32.3 - 35.7 g/dL [facility] RDW CV 13.7 11.1 - 14.9 % [facility] RDW SD 46.5 35.7 - 48.1 fL [facility] NRBC abs 0.00 0.00 - 0.01 K/cumm [facility] Blood 05/24/2024 12:2 9 AM ENGINE GENERATOR ASSEMBLER 05/24/2024 12:54 AM ENGINE GENERATOR ASSEMBLER Naila Guzman NP LAB BLOOD ORDERABLES Final Result Performing Organization Address City/[facility]/ZIP Co de Phone Number [facility] Department [place] [address] * Phosphorus (05/24/2024 12:29 AM ENGINE GENERATOR ASSEMBLER) Pathologist [facility] Phosphorus, pl 3.6 2.3 - 4.5 mg/dL Blood 05/24/2024 12:2 9 AM ENGINE GENERATOR ASSEMBLER 05/24/2024 12:54 AM ENGINE GENERATOR ASSEMBLER Naila Guzman NP LAB BLOOD ORDERABLES Final Result [facility] Department [place] [address] * Magnesium (05/24/2024 12:29 AM ENGINE GENERATOR ASSEMBLER) Pathologist [facility] Magnesium 1.9 1.4 - 2.5 mg/dL Blood 05/24/2024 12:2 9 AM ENGINE GENERATOR ASSEMBLER 05/24/2024 12:54 AM ENGINE GENERATOR ASSEMBLER Naila Guzman NP LAB BLOOD ORDERABLES Final Result Performing Organization Address [facility] Co de Phone Number [facility] Department [place] [address] * (ABNORMAL) Comprehensive metabolic panel (05/24/2024 12:29 AM ENGINE GENERATOR ASSEMBLER) [facility] Sodium 139 135 - 145 mmol/L Potassium, pl 4.3 3.3 - 4.9 mmol/L [facility] Chloride 103 97 - 110 mmol/L [facility] CO2 29 22 - 32 mmol/L [facility] Anion gap 7 2 - 15 mmol/L [facility] BUN 19 6 - 25 mg/dL [facility] Creatinine 0.75 0.60 - 1.10 mg/dL [facility] Glucose 157 70 - 199 mg/dL [facility] [...] Calcium 9.2 8.5 - 10.3 mg/dL [facility] Bilirubin, total 0.4 0.1 - 1.2 mg/dL [facility] Protein, pl 7.1 6.5 - 8.5 g/dL [facility] Albumin 3.3(L) 3.5 - 5.0 g/dL [facility] Alk phos 65 40 - 130 Units/L [facility] ALT 18 7 - 45 Units/L [facility] AST 17 10 - 45 Units/L [facility] Blood 05/24/2024 12:2 9 AM ENGINE GENERATOR ASSEMBLER 05/24/2024 12:54 AM ENGINE GENERATOR ASSEMBLER Naila Guzman DIRECTOR LIFE LAB BLOOD ORDERABLES Final Result Performing Organization Address [facility] Co de Phone Number [facility] [place] [address] * POCT glucose (05/23/2024 8:16 PM ENGINE GENERATOR ASSEMBLER) Glucose, POC 145 70 - 199 mg/dL Blood 05/23/2024 8:16 PM ENGINE GENERATOR ASSEMBLER 05/23/2024 8:16 PM ENGINE GENERATOR ASSEMBLER Result [facility] Carlos Real MD LAB POCT ORDERABLES - DEVICE Fin al Result Performing Organization Address City/[facility] Co de Phone Number [facility] [place] [address] * POCT glucose (05/23/2024 6:14 PM ENGINE GENERATOR ASSEMBLER) Glucose, POC 181 70 - 199 mg/dL Blood 05/23/2024 6:14 PM ENGINE GENERATOR ASSEMBLER 05/23/2024 6:14 PM ENGINE GENERATOR ASSEMBLER Carlos Real MD LAB POCT ORDERABLES - DEVICE Fin al Result Performing Organization Address [facility] Co de Phone Number [facility] [place] [address] * POCT glucose (05/23/2024 12:17 PM ENGINE GENERATOR ASSEMBLER) Glucose, POC 159 70 - 199 mg/dL Blood 05/23/2024 12:1 7 PM ENGINE GENERATOR ASSEMBLER 05/23/2024 12:17 PM ENGINE GENERATOR ASSEMBLER us Cem Knapp MD LAB POCT ORDERABLES - DEVIC E Final Result [facility] [place] [address] * US Vein Duplex Lower Extremity Bilateral Complete (05/23/2024 11:45 AM ENGINE GENERATOR ASSEMBLER) LV EF % CONS SCIMAGE Anatomical Region Laterality Modality Vascular Bilateral Ultrasound 05/23/2024 11:1 2 AM ENGINE GENERATOR ASSEMBLER Narrative 05/23/2024 9:43 PM ENGINE GENERATOR ASSEMBLER [facility] - Department of Vascular Surgery, Vascular Laboratory [address] [place] [id number] Lower Extremity Venous Ultrasound Report Patient Name: MOHSEN MARQUES M : 1955 (68y 11m) Study Date: 05/23/2024 11:12:03 AM Gender: F Tech: VELVET Location: [id number] Ref Provider: CARLOS REAL Quality: Adequate Order Provider: CARLOS REAL PROCEDURES: Vascular Report: Venous Duplex imaging was performed bilaterally in the lower extremities. The common femoral, femoral, popliteal, posterior tibial, peroneal veins were evaluated for patency, spontaneity and phasicity with Doppler, compression and augmentation maneuvers. Great saphenous vein proximal at the junction was evaluated with compression maneuvers. INDICATIONS: Localized edema. FINDINGS: Performing Tug Hand: Marlys Castillo RVT. Bilateral: Venous Doppler signals [...] Vu Obregon MD FACS 05/23/2024 9:42:19 PM ENGINE GENERATOR ASSEMBLER Procedure Note Vu Obregon MD - 05/23/2024 [facility] - Department of Vascular Surgery,Vascular Laboratory [address] [place] [id number] Lower Extremity Venous Ultrasound Report Patient Name: MOHSEN MARQUES M : 1955 (68y 11m) Study Date: 05/23/2024 11:12:03 AM Gender: F Tech: VELVET Location: [id number] Ref Provider: CARLOS REAL Quality: Adequate Order Provider: CARLOS RAEL PROCEDURES: Vascular Report: Venous Duplex imaging was performed bilaterally in the lower extremities.The common femoral, femoral, popliteal, posterior tibial, peroneal veins wereevaluated for patency, spontaneity and phasicity with Doppler, compression and augmentationmaneuvers. Great saphenous vein proximal at the junction was evaluated with compressionmaneuvers. INDICATIONS: Localized edema. FINDINGS: Performing Tug Hand: Marlys Castillo RVT. Bilateral: Venous Doppler signals [...] Vu Obregon MD, FACS 05/23/2024 9:42:19 PM ENGINE GENERATOR ASSEMBLER us Carlosmady Real MD [facility] [place] PROCEDURES Final Result * (ABNORMAL) POCT glucose (05/23/2024 8:16 AM ENGINE GENERATOR ASSEMBLER) Glucose, POC 204(H) 70 - 199 mg/dL Blood 05/23/2024 8:16 AM ENGINE GENERATOR ASSEMBLER 05/23/2024 8:16 AM ENGINE GENERATOR ASSEMBLER Cem Knapp MD LAB POCT ORDERABLES - DEVIC E Final Result [facility] Department [place] [address] * (ABNORMAL) Differential, auto (05/23/2024 2:30 AM ENGINE GENERATOR ASSEMBLER) Pathologist [facility] Neutrophil abs 8.0(H) 1.5 - 6.5 K/cumm Imm gran abs 0.1 0.0 - 0.1 K/cumm [facility] Lymphocyte abs 2.6 0.8 - 3.3 K/cumm [facility] Monocyte abs 1.0(H) 0.2 - 0.8 K/cumm [facility] Eosinophil abs 0.3 0.0 - 0.5 K/cumm [facility] Basophil abs 0.0 0.0 - 0.1 K/cumm [facility] Neutrophil pct 66.5 % [facility] Comment: Interpretive Data Percent cell count reference ranges are not reported, since discordance with absolute values may lead to misinterpretation of CBC data. Current Interpretive Data was last revised on 2017. Imm gran pct 0.5 % [facility] Comment: Interpretive Data Percent cell count reference ranges are not reported, since discordance with absolute values may lead to misinterpretation of CBC data. Current Interpretive Data was last revised on 2017. Lymphocyte pct 21.9 % [facility] Comment: Interpretive Data Percent cell count reference ranges are not reported, since discordance with absolute values may lead to misinterpretation of CBC data. Current Interpretive Data was last revised on 2017. Monocyte pct 8.5 % [facility] Comment: Interpretive Data Percent cell count reference ranges are not reported, since discordance with absolute values may lead to misinterpretation of CBC data. Current Interpretive Data was last revised on 2017. Eosinophil pct 2.3 % [facility] Comment: Interpretive Data Percent cell count reference ranges are not reported, since discordance with absolute values may lead to misinterpretation of CBC data. Current Interpretive Data was last revised on 2017. Basophil pct 0.3 % [facility] Comment: Interpretive Data Percent cell count reference ranges are not reported, since discordance with absolute values may lead to misinterpretation of CBC data. Current Interpretive Data was last revised on 2017. Blood 05/23/2024 2:30 AM ENGINE GENERATOR ASSEMBLER 05/23/2024 1:03 AM ENGINE GENERATOR ASSEMBLER us Naila Guzman NP LAB BLOOD ORDERABLES Final Result [facility] Department [place] [address] * (ABNORMAL) CBC with auto differential (05/23/2024 2:30 AM ENGINE GENERATOR ASSEMBLER) WBC 11.9(H) 3.8 - 9.9 K/cumm Hgb 12.8 11.9 - 15.5 g/dL [facility] Hct 39.6 35.6 - 45.5 % [facility] Plt 254 150 - 400 K/cumm [facility] MPV 9.7 9.1 - 12.3 fL [facility] RBC 4.43 3.90 - 5.20 M/cumm [facility] MCV 89.4 81.3 - 96.4 fL [facility] MCH 28.9 27.1 - 33.3 pg [facility] MCHC 32.3 32.3 - 35.7 g/dL [facility] RDW CV 13.7 11.1 - 14.9 % [facility] RDW SD 44.6 35.7 - 48.1 fL [facility] NRBC abs 0.00 0.00 - 0.01 K/cumm [facility] Blood 05/23/2024 2:30 AM ENGINE GENERATOR ASSEMBLER 05/23/2024 1:03 AM ENGINE GENERATOR ASSEMBLER us Naila Heather Thomas DIRECTOR LIFE LAB BLOOD ORDERABLES Final Result Performing Organization Address [facility]/ZIP Co de Phone Number MARY JANE [facility] [place] [address] * eGFR (05/23/2024 12:42 AM ENGINE GENERATOR ASSEMBLER) eGFR 84 >=60 mL/min/1. 73 m2 Comment: [...] reviewed 2021. Blood 05/23/2024 12:4 2 AM ENGINE GENERATOR ASSEMBLER 05/23/2024 1:02 AM ENGINE GENERATOR ASSEMBLER Naila Guzman NP LAB BLOOD ORDERABLES Final Result Performing Organization Address [facility]/ZIP Co de Phone Number [facility] Department [place] [address] * Type and screen (05/23/2024 12:42 AM ENGINE GENERATOR ASSEMBLER) ABO Rh O Positive Dilcia, indirect Negative [facility] Blood 05/23/2024 12:4 2 AM ENGINE GENERATOR ASSEMBLER 05/23/2024 12:52 AM ENGINE GENERATOR ASSEMBLER Narrative [facility] - 05/23/2024 1:53 AM ENGINE GENERATOR ASSEMBLER Has the patient had Daratumumab or Isatuximab in the past 6 months?->Unknown Naila Guzman NP LAB BLOOD BANK TEST ORDERA BLES Final Result Performing Organization Address [facility] [place] [address] * Uric acid (05/23/2024 12:42 AM ENGINE GENERATOR ASSEMBLER) Uric acid 5.5 2.5 - 7.0 mg/dL Blood 05/23/2024 12:4 2 AM ENGINE GENERATOR ASSEMBLER 05/23/2024 1:02 AM ENGINE GENERATOR ASSEMBLER Narrative [facility] - 05/23/2024 1:34 AM ENGINE GENERATOR ASSEMBLER Monday and only. Morning draw. . Naila Guzman NP LAB BLOOD ORDERABLES Final Result Performing Organization Address [facility] [place] [address] * Phosphorus (05/23/2024 12:42 AM ENGINE GENERATOR ASSEMBLER) Pathologist [facility] Phosphorus, pl 4.4 2.3 - 4.5 mg/dL Blood 05/23/2024 12:4 2 AM ENGINE GENERATOR ASSEMBLER 05/23/2024 1:02 AM ENGINE GENERATOR ASSEMBLER Naila Guzman NP LAB BLOOD ORDERABLES Final Result Performing Organization Address [facility] [place] [address] * Magnesium (05/23/2024 12:42 AM ENGINE GENERATOR ASSEMBLER) Magnesium 1.9 1.4 - 2.5 mg/dL Blood 05/23/2024 12:4 2 AM ENGINE GENERATOR ASSEMBLER 05/23/2024 1:02 AM ENGINE GENERATOR ASSEMBLER Naila Guzman NP LAB BLOOD ORDERABLES Final Result Performing Organization Address City/[facility] Co de Phone Number [facility] Department [place] [address] * Lactate dehydrogenase (LD) (05/23/2024 12:42 AM ENGINE GENERATOR ASSEMBLER) [facility] Lactate dehydrogenase (LDH) 247 100 - 250 Units/L Blood 05/23/2024 12:4 2 AM ENGINE GENERATOR ASSEMBLER 05/23/2024 1:02 AM ENGINE GENERATOR ASSEMBLER Narrative [facility] - 05/23/2024 1:34 AM ENGINE GENERATOR ASSEMBLER Monday and only. Morning draw. Naila Guzman NP LAB BLOOD ORDERABLES Final Result Performing Organization Address [facility] de Phone Number [facility] Department [place] [address] * Comprehensive metabolic panel (05/23/2024 12:42 AM ENGINE GENERATOR ASSEMBLER) [facility] Sodium 136 135 - 145 mmol/L Potassium, pl 4.3 3.3 - 4.9 mmol/L [facility] Chloride 101 97 - 110 mmol/L [facility] CO2 29 22 - 32 mmol/L [facility] Anion gap 6 2 - 15 mmol/L [facility] BUN 18 6 - 25 mg/dL [facility] Creatinine 0.77 0.60 - 1.10 mg/dL [facility] Glucose 194 70 - 199 mg/dL [facility] [...] Calcium 9.5 8.5 - 10.3 mg/dL [facility] Bilirubin, total 0.5 0.1 - 1.2 mg/dL [facility] Protein, pl 7.4 6.5 - 8.5 g/dL [facility] Albumin 3.5 3.5 - 5.0 g/dL [facility] Alk phos 71 40 - 130 Units/L [facility] ALT 19 7 - 45 Units/L [facility] AST 22 10 - 45 Units/L [facility] Blood 05/23/2024 12:4 2 AM ENGINE GENERATOR ASSEMBLER 05/23/2024 1:02 AM ENGINE GENERATOR ASSEMBLER us Naila Guzman NP LAB BLOOD ORDERABLES Final Result Performing Organization Address City/[facility]/ZIP Co de Phone Number [facility] Department [place] [address] * (ABNORMAL) POCT glucose (05/22/2024 8:56 PM ENGINE GENERATOR ASSEMBLER) Glucose, POC 210(H) 70 - 199 mg/dL Blood 05/22/2024 8:56 PM ENGINE GENERATOR ASSEMBLER 05/22/2024 8:56 PM ENGINE GENERATOR ASSEMBLER us Cem Knapp MD LAB POCT ORDERABLES - DEVIC E Final Result Performing Organization Address [facility] Co de Phone Number [facility] Department [place] [address] * POCT glucose (05/22/2024 6:09 PM ENGINE GENERATOR ASSEMBLER) Glucose, POC 142 70 - 199 mg/dL Blood 05/22/2024 6:09 PM ENGINE GENERATOR ASSEMBLER 05/22/2024 6:09 PM ENGINE GENERATOR ASSEMBLER us Leo Henry MD LAB POCT ORDERABLES - NILESH CE Final Result Performing Organization Address City/[facility]/ZIP Co de Phone Number [facility] Department [place] [address] * POCT glucose (05/22/2024 4:26 PM ENGINE GENERATOR ASSEMBLER) Glucose, POC 133 70 - 199 mg/dL Blood 05/22/2024 4:26 PM ENGINE GENERATOR ASSEMBLER 05/22/2024 4:26 PM ENGINE GENERATOR ASSEMBLER Leo Henry MD LAB POCT ORDERABLES - NILESH CE Final Result Performing Organization Address City/State/ZIP Co in Phone Number [facility]ANE [facility] [place] [address] * CT Abdomen Pelvis W Contrast (05/22/2024 2:32 PM ENGINE GENERATOR ASSEMBLER) Anatomical Region Laterality Modality Body N/A Computed Tomogra phy 05/22/2024 4:35 PM ENGINE GENERATOR ASSEMBLER Impressions 05/22/2024 5:16 PM ENGINE GENERATOR ASSEMBLER No acute findings within the abdomen or pelvis. Dictated by: Yesi Mendes M.D. The radiology attending physician has personally reviewed this study, and had reviewed and/or edited this written report and agrees with it. Electronically signed by: Kelli Palmer M.D. Narrative 05/22/2024 5:16 PM ENGINE GENERATOR ASSEMBLER EXAMINATION: Computed tomography of the abdomen and [...] sult * POCT glucose (05/22/2024 12:58 PM ENGINE GENERATOR ASSEMBLER) Glucose, POC 177 70 - 199 mg/dL Blood 05/22/2024 12:5 8 PM ENGINE GENERATOR ASSEMBLER 05/22/2024 12:58 PM ENGINE GENERATOR ASSEMBLER Leo Henry MD LAB POCT ORDERABLES - NILESH CE Final Result Performing Organization Address [facility] Co de Phone Number [facility] [place] [address] * (ABNORMAL) POCT glucose (05/22/2024 9:29 AM ENGINE GENERATOR ASSEMBLER) Glucose, POC 291(H) 70 - 199 mg/dL Blood 05/22/2024 9:29 AM ENGINE GENERATOR ASSEMBLER 05/22/2024 9:29 AM ENGINE GENERATOR ASSEMBLER Leo Henry MD LAB POCT ORDERABLES - NILESH CE Final Result Performing Organization Address [facility] Co de Phone Number [facility] [place] [address] * POCT glucose (05/22/2024 6:54 AM ENGINE GENERATOR ASSEMBLER) Glucose, POC 142 70 - 199 mg/dL Blood 05/22/2024 6:54 AM ENGINE GENERATOR ASSEMBLER 05/22/2024 6:54 AM ENGINE GENERATOR ASSEMBLER Jimmie Zavala MD LAB POCT ORDERABLES - DEVICE Fin al Result Performing Organization Address [facility] Co de Phone Number [facility] [place] [address] * CT Chest PE (CTA) W Contrast (05/22/2024 1:31 AM ENGINE GENERATOR ASSEMBLER) Anatomical Region Laterality Modality Body N/A Computed Tomogra phy 05/22/2024 2:38 AM ENGINE GENERATOR ASSEMBLER Impressions 05/22/2024 9:12 AM ENGINE GENERATOR ASSEMBLER No pulmonary embolism. Dictated by: Miguel Milligan MD The radiology attending physician has personally reviewed this study, and had reviewed and/or edited this written report and agrees with it. Electronically signed by: Jayson Rockwell M.D. Narrative 05/22/2024 9:12 AM ENGINE GENERATOR ASSEMBLER EXAMINATION: CT CHEST PE (CTA) W CONTRAST [...] Result * D-dimer, quantitative (05/22/2024 12:24 AM ENGINE GENERATOR ASSEMBLER) D-Dimer 414 <=499 ng/mL FEU Comment: Interpretive [...] on 2019. Blood 05/22/2024 12:2 4 AM ENGINE GENERATOR ASSEMBLER 05/22/2024 12:42 AM ENGINE GENERATOR ASSEMBLER Angeline Soler MD LAB BLOOD ORDERABLES F inal Result Performing Organization Address City/[facility] Co de Phone Number [facility] Department [place] [address] * Troponin I high-sensitivity 2-hour (05/21/2024 11:09 PM ENGINE GENERATOR ASSEMBLER) Trop I hs 5 <=17 ng/L Comment: Interpretive Data For further hscTnI resources including the diagnostic algorithm and an aid in interpretation, copy and paste this link: https://bjhlab.testcatalog.org/show/hsTrop-[email or web address] Current Interpretive Data last revised 2019. Trop I hs delta See Comment ng/L [facility] Comment:Inappropriate collec tion time to report a delta. Trop I hs pct delta See Comment % [facility] Comment:Inappropriate collec tion time to report a delta. Trop I hs interp See Comment [facility] Comment:Inappropriate collec tion time to report a delta. Blood 05/21/2024 11:0 9 PM ENGINE GENERATOR ASSEMBLER 05/21/2024 11:26 PM ENGINE GENERATOR ASSEMBLER Cira Castro MD LAB BLOOD ORDERABL ES Final Result Performing Organization Address [facility] Co de Phone Number [facility] Department [place] [address] * (ABNORMAL) Urinalysis reflex to microscopic and culture Urine (05/21/2024 11:09 PM ENGINE GENERATOR ASSEMBLER) Color, ur Yellow Yellow Clarity, ur Clear Clear [facility] Specific gravity, ur 1.025 1.003 - 1.030 [facility] pH, urine 6.0 [facility] Comment: Interpretive Data U rine pH is affected by diet, medications, systemic acid-base disturbances, and renal tubular function. pH may affect urinary stone formation. For example, urine pH below 6.0 may help reduce the tendency for calcium phosphate stones and pH greater than 6.0 may reduce the tendency for uric acid stone formation. Source: [facility] Current Interpretive Data was last revised on 2017 Protein, ur ql 1+(A) Negative [facility] Glucose, ur ql Negative Negative [facility] Ketones, ur Negative Negative [facility] Bilirubin, ur Negative Negative [facility] Blood, ur Trace(A) Negative [facility] Urobilinogen, ur <2.0 <2.0 mg/dL [facility] Nitrite, ur Positive(A) Negative [facility] Leukocyte esterase, ur 1+(A) Negative [facility] UA reflex comment Reflex to microscopic UA will be performed. [facility] Urine 05/21/2024 11:0 9 PM ENGINE GENERATOR ASSEMBLER 05/21/2024 11:22 PM ENGINE GENERATOR ASSEMBLER Angeilne Soler MD LAB MICROBIOLOGY - GEN ERAL ORDERABLES Final Result [facility] [place] [address] * Respiratory pathogen panel Nasopharyngeal (05/21/2024 11:09 PM ENGINE GENERATOR ASSEMBLER) Pathologist [facility] Influenza A RNA Not Detected Not Detected Influenza B RNA Not Detected Not Detected [facility] RSV RNA Not Detected Not Detected [facility] COVID-19 RNA Not Detected Not Detected [facility] Coronavirus 229E RNA Not Detected Not Detected [facility] Coronavirus HKU1 RNA Not Detected Not Detected [facility] Coronavirus NL63 RNA Not Detected Not Detected [facility] Coronavirus OC43 RNA Not Detected Not Detected [facility] Adenovirus DNA Not Detected Not Detected [facility] Metapneumovirus RNA Not Detected Not Detected [facility] Rhinovirus/Enterov irus RNA Not Detected Not Detected [facility] Parainfluenza 1 RNA Not Detected Not Detected [facility] Parainfluenza 2 RNA Not Detected Not Detected [facility] Parainfluenza 3 RNA Not Detected Not Detected [facility] Parainfluenza 4 RNA Not Detected Not Detected [facility] B. pertussis DNA Not Detected Not Detected [facility] B. parapertussis DNA Not Detected Not Detected [facility] C. pneumoniae DNA Not Detected Not Detected [facility] M. pneumoniae DNA Not Detected Not Detected [facility] Nasopharyngeal 05/21/2024 11 :09 PM ENGINE GENERATOR ASSEMBLER 05/22/2024 4:48 AM ENGINE GENERATOR ASSEMBLER Narrative [facility] - 05/22/2024 5:55 AM ENGINE GENERATOR ASSEMBLER Is the Patient experiencing symptoms consistent with COVID?->No Surveillance testing for transplant patient?->No Interpretive Data The [employer]DI Medical FilmArray Respiratory Panel (RP2.1) assay is a [...] has FDA clearance for testing of DIRECTOR LIFE swabs. The performance of additional specimen types has been assessed by the performing laboratory. The performance characteristics of this assay have been determined by [facility] Molecular Infectious Disease Laboratory. Current interpretive data was last revised on 22. Angeline Soler MD LAB MICROBIOLOGY - GEN ERAL ORDERABLES Final Result Performing Organization Address [facility] Co de Phone Number [facility] Department [place] [address] * (ABNORMAL) Urinalysis, microscopic only (05/21/2024 11:09 PM ENGINE GENERATOR ASSEMBLER) WBC, ur 11-20(A) 0 - 5 /HPF RBC, ur 3-5(A) 0 - 2 /HPF [facility] Epithelial cells, squamous, ur 1-5 0 - 5 /HPF [facility] Bacteria, ur 3+(A) [facility] Yeast, ur Trace(A) [facility] Mucous, ur Present(A) [facility] Culture Reflex Comment Reflex to urine culture will be performed. [facility] Urine 05/21/2024 11:0 9 PM ENGINE GENERATOR ASSEMBLER 05/21/2024 11:21 PM ENGINE GENERATOR ASSEMBLER Angeline Soler MD LAB URINE ORDERABLES F inal Result Performing Organization Address [facility] Co de Phone Number [facility] [place] [address] * (ABNORMAL) Urine culture Urine (05/21/2024 11:09 PM ENGINE GENERATOR ASSEMBLER) Report Amended Report - Complete: Greater than or equal to 100,000 colonies/mL of Escherichia coli Plus growth of clinically insignificant bacterial yesenia. (.) Organism ESCHERICHIA COLI [facility] Organism PLUS GROWTH OF CLINICALLY INSIGNIFICANT YESENIA. [facility] Urine 05/21/2024 11:0 9 PM ENGINE GENERATOR ASSEMBLER 05/22/2024 2:40 AM ENGINE GENERATOR ASSEMBLER Narrative [facility] - 05/25/2024 10:36 AM ENGINE GENERATOR ASSEMBLER Urine culture reflexed based upon urinalysis results. Testing performed by [facility] Microbiology Laboratory ([phone]) Organism Antibiotic Method Susceptibility Escherichia coli Ampicillin [...] Edited Result - Final Performing Organization Address City/[facility]/ZIP Co de Phone Number [facility] Department [place] [address] * POCT glucose (05/21/2024 8:55 PM ENGINE GENERATOR ASSEMBLER) Glucose, POC 139 70 - 199 mg/dL Blood 05/21/2024 8:55 PM ENGINE GENERATOR ASSEMBLER 05/21/2024 8:55 PM ENGINE GENERATOR ASSEMBLER us Notinfile Unknown LAB POCT ORDERABLES - DEVICE F inal Result Performing Organization Address [facility]/[place] [address] * Troponin I high-sensitivity 4-hour (05/21/2024 7:26 PM ENGINE GENERATOR ASSEMBLER) [facility] Trop I hs 4 <=17 ng/L Comment: Interpretive Data For further hscTnI resources including the diagnostic algorithm and an aid in interpretation, copy and paste this link: https://nooked.[employer].org/show/hsTrop-1 Current Interpretive Data last revised 2019. Trop I hs delta -1 ng/L [facility] Trop I hs interp Insignificant [facility] Blood 05/21/2024 7:26 PM ENGINE GENERATOR ASSEMBLER 05/21/2024 7:37 PM ENGINE GENERATOR ASSEMBLER us Cira Castro MD LAB BLOOD ORDERABL ES Final Result Performing Organization Address [facility] Co de Phone Number [facility] [place] [address] * Troponin I high-sensitivity series (baseline, 2hr, 4hr, 6hr) (05/21/2024 4:20 PM ENGINE GENERATOR ASSEMBLER) [facility] Trop I hs 5 <=17 ng/L Comment: Interpretive Data For further hscTnI resources including the diagnostic algorithm and an aid in interpretation, copy and paste this link: https://nooked.[employer].org/show/hsTrop-1 Current Interpretive Data last revised 2019. Blood 05/21/2024 4:20 PM ENGINE GENERATOR ASSEMBLER 05/21/2024 4:50 PM ENGINE GENERATOR ASSEMBLER us Jimmie Zavala MD LAB BLOOD ORDERABLES Final Resul t Performing Organization Address City/[facility]/ZIP Co de Phone Number [facility] [place] [address] * eGFR (05/21/2024 4:20 PM ENGINE GENERATOR ASSEMBLER) [facility] eGFR >90 >=60 mL/min/1. 73 m2 [...] last reviewed 2021. Blood 05/21/2024 4:20 PM ENGINE GENERATOR ASSEMBLER 05/21/2024 4:50 PM ENGINE GENERATOR ASSEMBLER us Jimmie Zavala MD LAB BLOOD ORDERABLES Final Resul t [facility] Department of Laboratories [place], [place] [id number] * (ABNORMAL) Differential, auto (05/21/2024 4:20 PM ENGINE GENERATOR ASSEMBLER) Pathologist [facility] Neutrophil abs 8.0(H) 1.5 - 6.5 K/cumm Imm gran abs 0.0 0.0 - 0.1 K/cumm [facility] Lymphocyte abs 2.4 0.8 - 3.3 K/cumm [facility] Monocyte abs 0.8 0.2 - 0.8 K/cumm [facility] Eosinophil abs 0.2 0.0 - 0.5 K/cumm [facility] Basophil abs 0.0 0.0 - 0.1 K/cumm [facility] Neutrophil pct 69.4 % [facility] Comment: Interpretive Data Percent cell count reference ranges are not reported, since discordance with absolute values may lead to misinterpretation of CBC data. Current Interpretive Data was last revised on 2017. Imm gran pct 0.4 % [facility] Comment: Interpretive Data Percent cell count reference ranges are not reported, since discordance with absolute values may lead to misinterpretation of CBC data. Current Interpretive Data was last revised on 2017. Lymphocyte pct 21.4 % [facility] Comment: Interpretive Data Percent cell count reference ranges are not reported, since discordance with absolute values may lead to misinterpretation of CBC data. Current Interpretive Data was last revised on 2017. Monocyte pct 6.7 % [facility] Comment: Interpretive Data Percent cell count reference ranges are not reported, since discordance with absolute values may lead to misinterpretation of CBC data. Current Interpretive Data was last revised on 2017. Eosinophil pct 1.8 % [facility] Comment: Interpretive Data Percent cell count reference ranges are not reported, since discordance with absolute values may lead to misinterpretation of CBC data. Current Interpretive Data was last revised on 2017. Basophil pct 0.3 % [facility] Comment: Interpretive Data Percent cell count reference ranges are not reported, since discordance with absolute values may lead to misinterpretation of CBC data. Current Interpretive Data was last revised on 2017. Blood 05/21/2024 4:20 PM ENGINE GENERATOR ASSEMBLER 05/21/2024 4:50 PM ENGINE GENERATOR ASSEMBLER us Jimmie Zavala MD LAB BLOOD ORDERABLES Final Resul t [facility] Department [place] [address] * (ABNORMAL) CBC with auto differential (05/21/2024 4:20 PM ENGINE GENERATOR ASSEMBLER) WBC 11.4(H) 3.8 - 9.9 K/cumm Hgb 14.0 11.9 - 15.5 g/dL [facility] Hct 43.6 35.6 - 45.5 % [facility] Plt 286 150 - 400 K/cumm [facility] MPV 9.9 9.1 - 12.3 fL [facility] RBC 4.83 3.90 - 5.20 M/cumm [facility] MCV 90.3 81.3 - 96.4 fL [facility] MCH 29.0 27.1 - 33.3 pg [facility] MCHC 32.1(L) 32.3 - 35.7 g/dL [facility] RDW CV 13.6 11.1 - 14.9 % [facility] RDW SD 45.6 35.7 - 48.1 fL [facility] NRBC abs 0.00 0.00 - 0.01 K/cumm [facility] Blood Venous blood specimen / Unknown 05/21/2024 4:20 PM ENGINE GENERATOR ASSEMBLER 05/21/2024 4:50 PM ENGINE GENERATOR ASSEMBLER us Jimmie Zavala MD LAB BLOOD ORDERABLES Final Resul t Performing Organization Address City/[facility] Co de Phone Number [facility] [place] [address] * (ABNORMAL) Hemoglobin A1c (05/21/2024 4:20 PM ENGINE GENERATOR ASSEMBLER) Hgb A1C 8.7(H) 4.0 - 5.6 % Estimated Average Glucose 203 mg/dL [facility] Comment: The ADA recommends reporting an estimated Average Glucose (eAG) with all Hemoglobin A1c results using the equation derived from a study of 507 normal and diabetic adults. Minority populations were underrepresented and children were not included. (Diabetes Care 2020; 43(S1): S66-S76). The eAG is not equivalent to a fasting glucose. Blood 05/21/2024 4:20 PM ENGINE GENERATOR ASSEMBLER 05/21/2024 4:55 PM ENGINE GENERATOR ASSEMBLER us Leo Henry MD LAB BLOOD ORDERABLES Final Result Performing Organization Address City/[facility]/ZIP Co de Phone Number [facility] [employer] [place], [place] [id number] * (ABNORMAL) Lipid panel (05/21/2024 4:20 PM ENGINE GENERATOR ASSEMBLER) Cholesterol 205(H) 30 - 199 mg/dL Comment: [...] revised on 2017. Triglycerides 92 <=149 mg/dL [facility] Comment: Interpretive Data Ages < or = [...] revised on 2017. HDL 55 >=40 mg/dL [facility] Comment: Interpretive Data Ages < or = [...] on 2017. LDL, calculated 134(H) <=129 mg/dL [facility] Comment: Interpretive Data Ages < or = [...] revised on 2023. Non-HDL Cholesterol 150 mg/dL [facility] Comment: Interpretive Data Ages < or = [...] revised on 2017. Chol/HDL ratio 4 [facility] Blood 05/21/2024 4:20 PM ENGINE GENERATOR ASSEMBLER 05/21/2024 4:50 PM ENGINE GENERATOR ASSEMBLER Narrative [facility] - 05/22/2024 4:17 PM ENGINE GENERATOR ASSEMBLER Reflex us Leo Henry MD LAB BLOOD ORDERABLES Final Result [facility] Department [place] [address] * Comprehensive metabolic panel (05/21/2024 4:20 PM ENGINE GENERATOR ASSEMBLER) Sodium 140 135 - 145 mmol/L Potassium, pl 4.3 3.3 - 4.9 mmol/L [facility] Chloride 100 97 - 110 mmol/L [facility] CO2 29 22 - 32 mmol/L [facility] Anion gap 11 2 - 15 mmol/L [facility] BUN 14 6 - 25 mg/dL [facility] Creatinine 0.63 0.60 - 1.10 mg/dL [facility] Glucose 119 70 - 199 mg/dL [facility] [...] 10.3 mg/dL [facility] Bilirubin, total 0.7 0.1 - 1.2 mg/dL [facility] Protein, pl 8.5 6.5 - 8.5 g/dL [facility] Albumin 3.9 3.5 - 5.0 g/dL [facility] Alk phos 83 40 - 130 Units/L [facility] ALT 23 7 - 45 Units/L [facility] AST 22 10 - 45 Units/L [facility] Blood 05/21/2024 4:20 PM ENGINE GENERATOR ASSEMBLER 05/21/2024 4:50 PM ENGINE GENERATOR ASSEMBLER us Jimmie Zavala MD LAB BLOOD ORDERABLES Final Resul t [facility] [place] [address] * XR Chest Pa Lateral 2 Views (05/21/2024 2:23 PM ENGINE GENERATOR ASSEMBLER) Anatomical Region Laterality Modality Body, Chest N/A Computed Radiogr aphy 05/21/2024 2:28 PM ENGINE GENERATOR ASSEMBLER Impressions 05/21/2024 2:36 PM ENGINE GENERATOR ASSEMBLER The current study is compared with the [...] Jaime Neves M.D. Narrative 05/21/2024 2:36 PM ENGINE GENERATOR ASSEMBLER EXAMINATION: 2 view chest radiograph Procedure Note [...] Result * POCT glucose (05/21/2024 1:39 PM ENGINE GENERATOR ASSEMBLER) [facility] Glucose, POC 113 70 - 199 mg/dL Blood 05/21/2024 1:39 PM ENGINE GENERATOR ASSEMBLER 05/21/2024 1:39 PM ENGINE GENERATOR ASSEMBLER us Notinfile Unknown LAB POCT ORDERABLES - DEVICE F inal Result [facility] [place] [address] * ECG 12-LEAD (05/21/2024 1:36 PM ENGINE GENERATOR ASSEMBLER) Narrative [facility] - 05/21/2024 1:36 PM ENGINE GENERATOR ASSEMBLER Gil Mcgrath MD 05/21/2024 1:37 PM ECG [...] Zavala MD ECG ORDERABLES Final Result [facility] * US Axillary Breast Left (05/21/2024 12:13 PM ENGINE GENERATOR ASSEMBLER) Anatomical Region Laterality Modality Upper Extremities Left Ultrasound 05/21/2024 12:2 3 PM ENGINE GENERATOR ASSEMBLER Impressions 05/21/2024 12:23 PM ENGINE GENERATOR ASSEMBLER 1. Limited ultrasound due to extensive edema [...] Alicia Wilcox M.D. Narrative 05/21/2024 12:23 PM ENGINE GENERATOR ASSEMBLER EXAMINATION: LEFT AXILLARY ULTRASOUND HISTORY: Patient is [...] culture Urine, clean voided (05/14/2024 4:50 PM ENGINE GENERATOR ASSEMBLER) Color, ur Straw Yellow Clarity, ur Clear Clear [facility] Specific gravity, ur 1.025 1.003 - 1.030 [facility] pH, urine 5.5 [facility] Comment: Interpretive Data U rine pH is affected by diet, medications, systemic acid-base disturbances, and renal tubular function. pH may affect urinary stone formation. For example, urine pH below 6.0 may help reduce the tendency for calcium phosphate stones and pH greater than 6.0 may reduce the tendency for uric acid stone formation. Source: [facility] [employer] Current Interpretive Data was last revised on 2017 Protein, ur ql Trace Negative [facility] Glucose, ur ql Negative Negative [facility] Ketones, ur Negative Negative [facility] Bilirubin, ur Negative Negative [facility] Blood, ur Trace(A) Negative [facility] Urobilinogen, ur <2.0 <2.0 mg/dL [facility] Nitrite, ur Negative Negative [facility] Leukocyte esterase, ur Negative Negative [facility] UA reflex comment Reflex to microscopic UA will be performed. [facility] Urine, clean voided 05/14/2024 4:50 PM ENGINE GENERATOR ASSEMBLER 05/14/2024 7:18 PM ENGINE GENERATOR ASSEMBLER Khris Arthur MD LAB MICROBIOLOGY - G ENERAL ORDERABLES Final Result [facility] Department [place] [address] * (ABNORMAL) Urinalysis, microscopic only (05/14/2024 4:50 PM ENGINE GENERATOR ASSEMBLER) WBC, ur 0-5 0 - 5 /HPF RBC, ur 0-2 0 - 2 /HPF [facility] Epithelial cells, squamous, ur 1-5 0 - 5 /HPF [facility] Bacteria, ur Trace(A) [facility] Mucous, ur Present(A) [facility] Culture Reflex Comment Reflex conditions for urine culture (WBC >10) not met. [facility] Urine, clean voided 05/14/2024 4:50 PM ENGINE GENERATOR ASSEMBLER 05/14/2024 7:18 PM ENGINE GENERATOR ASSEMBLER us Khris Arthur MD LAB URINE ORDERABLES Final Result [facility] [place] [address] * XR Ribs Left 2 Views (05/14/2024 4:44 PM ENGINE GENERATOR ASSEMBLER) Anatomical Region Laterality Modality Rib, Chest Left Digital Radiogra phy 05/14/2024 4:54 PM ENGINE GENERATOR ASSEMBLER Impressions 05/14/2024 4:54 PM ENGINE GENERATOR ASSEMBLER 1. No displaced left rib fracture. Electronically signed by: Santiago Gan D.O. Narrative 05/14/2024 4:54 PM ENGINE GENERATOR ASSEMBLER EXAMINATION: XR RIBS LEFT 2 VIEWS HISTORY: [...] Bone mineral density was performed on a [employer] Discovery Densitometer. Based on machine cross-calibration [...] by the International Society of Clinical Densitometry. [id number] Khris Arthur MD IMG DXA PROCEDURES F [...] agrees with it. ACC# Date Time Exam [id number] Aug 19, 2016 14:27:00 [facility] [id number] Diag Mamm, inc CAD, unilat L Technologist(s): Carla Harris; ; [id number] Aug 19, 2016 15:39:00 [facility] [id number] Breast US unilateral, ltd L ACC# Date Time Exam [id number] Aug 19, 2016 14:27:00 [facility] [id number] Diag Mamm, inc CAD, unilat L Technologist(s): Carla Harris; ; [id number] Aug 19, 2016 15:39:00 [facility] [id number] Breast US unilateral, ltd L EXAMINATION: LEFT [...] SARABIA M.D. on Aug 19 2016 4:20P [id number] Procedure Note Miscellaneous, Not In File / Provider, MD Tyler - 09/17/2016 ANTHONY SARABIA M.D. JUDY RINCON M.D. FINAL REPORT The radiology attending physician has personally reviewed this study, and has reviewed and/or edited this written report and agrees with it. ACC# Date Time Exam [id number] Aug 19, 2016 14:27:00 [facility] [id number] Diag Mamm, inc CAD, unilat L Technologist(s): Carla Harris; ; [id number] Aug 19, 2016 15:39:00 [facility] [id number] Breast US unilateral, ltd L ACC# Date Time Exam [id number] Aug 19, 2016 14:27:00 [facility] [id number] Diag Mamm, inc CAD, unilat L Technologist(s): Carla Harris; ; [id number] Aug 19, 2016 15:39:00 [facility] [id number] Breast US unilateral, ltd L EXAMINATION: LEFT [...] SARABIA M.D. on Aug 19 2016 4:20P [id number] us Not In File Miscellaneous IMG MAMMO PROCEDURES F inal Result from Last 3 Months or Most Recently Relevant to Health Maintenance Insurance [facility] UHC MEDICARE ADVANTAGE [facility] MEDICARE ADVANTAGE [facility] MEDICARE ADVANTAGE Advance Directives For more information, please contact: [phone] Documents on File Type Date Recorded Patient Dial Maker Expl anation ADVANCE DIRECTIVE 12/23/2021 2:49 PM Power of Supervisor Adult Education-Medical ADVANCE DIRECTIVE 12/23/2021 2:49 PM Living Will [...] First Alternate Health Care Agent Care Teams Manager Subway Relationship Specialty Start Date End Date Justen Gale MD [address] [address] PCP - General 10/09/17 Liu Jerez MD Consulting Physician Gastroenterology 07/28/17 [place] [address] [facility] [address] [place] [address] Consulting Physician Pulmonary Disease 08/03/17 Khris Arthur MD [address] [facility] [address] [place] [address] Medical Oncologist/Bioinformatics Specialist Medical Oncology 10/23/17 [place] [address] [facility] [address] [place] [address] Surgeon Orthopedic Surgery 10/23/17 [place] [address] [facility] [address] [place] [address] Consulting Physician Pain Management 10/23/17 [place] [address] [facility] [address] [place] [address] Referring Physician General Surgery 01/26/18 [place] [address] [facility] [address] [place] [address] Consulting Physician Neurology 01/26/18
--- OUTSIDE RECORDS SUMMARY | 2024-08-05 17:46 | XMS_ITS | Clinical Summary ---
Author Organization [facility] Address Critical access hospital[address] [place] [address] Care Team Providers Care Ruffling Hemmer Automatic Name Role Phone Meena Bansal MD Unavailable [phone] Justen Gale MD Primary Care Provider [phone] Allergies Active Allergy Reactions Criticality Noted Date [...] disease 09/05/2020 Malignant tumor of breast ([facility]/HCC [facility]) 08/22 Knee pain 09/05/2020 Other [...] 03/18/2018 Assessment & Plan (03/18/2018 2:55 AM CARGO SERVICE AGENT): Acute, patient reported as epigastric pain however may be atypical presentation. Troponins negative x2. Also in differential is GERD, PUD - Admit to observation -Follow-up troponins -Monitor vitals -N.p.o. at midnight - Stress echo in a.m. - Consider cardiology consult based on results of stress test -Begin Protonix Epigastric pain 03/18/2018 Assessment & Plan (03/18/2018 5:39 AM CARGO SERVICE AGENT): Acute, non radiating, worsens with lying down, [...] impairment 01/30/2018 CVA (cerebral vascular accident) ([facility] HHS/ C) 01/24/2018 Neck pain on right side 12/01/2017 Anxiety and depression 11/12/2017 Chronic anticoagulation 11/09/2017 Constipation 11/09/2017 Uncontrolled type 2 diabetes mellitus with hyperglycemia, with long-term current use of insulin (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 HHS/HCC) 10/17/2017 Assessment & Plan (08/31/2018 12:24 AM CDT): S/p masectomy. -continue exemestane Acute deep vein thrombosis ( DVT) of proximal vein of right lower extremity ([facility]) 10/17/2017 Dysuria 10/17/2017 Hyperthyroidism 10/17/2017 Cancer of overlapping sites of left female breast ([facility]) 10/13/2017 Syncope 09/29/2017 High blood pressure 08/22/2017 Overview (09/05/2020): Last Assessment & Plan: On lisinopril Last Assessment & Plan: On lisinopril Assessment & Plan (08/30/2018 9:57 PM CDT): Chronic. Controlled. -continue home medications Assessment & Plan (03/18/2018 2:51 AM CARGO SERVICE AGENT): Chronic, BPs currently 127/78 - To new home meds Morbid obesity with BMI of 50.0-59.9, adult 04/2017 Sepsis ([facility]) 08/22/2017 Type 2 diabetes mellitus ([facility]) 08/22 Overview (09/05/2020): Last Assessment & Plan: Hold janument. Start on SSI and accucheks Assessment & Plan (08/30/2018 10:01 PM CDT): Chronic. Controlled. -continue home insulin regimen of lantus 50 units q am -lispro 20 units with breakfast and lunch. 22 units with dinner. Assessment & Plan (03/18/2018 2:53 AM CARGO SERVICE AGENT): Chronic, patient reports medical compliance with 50 units of Lantus daily and 15 units of Humalog before meals. No recent HbA1c - Monitor POC glucose -Newell home regimen - Consider sliding scale insulin -Follow-up HbA1c Bronchitis 08/20/2017 LUL (obstructive sleep apnea) 08/01/2017 Assessment & Plan (03/18/2018 2:54 AM CARGO SERVICE AGENT): Chronic, on CPAP at home - Continue home CPAP History of DVT (deep vein thrombosis) 08/01/2017 Assessment & Plan (03/18/2018 2:54 AM CARGO SERVICE AGENT): Chronic - Continue home Xarelto Chest pressure 08/01/2017 Diet-controlled diabetes mellitus ([facility] HHS/H CC) 08/01/2017 History of pulmonary embolism 08/01/2017 Hyponatremia 08/01/2017 Positive blood culture 08/01/2017 Acute pharyngitis 07/27/2017 Generalized weakness 07/27/2017 Nausea and vomiting 07/26/2017 Overview (09/05/2020): Overview: Overview: Added automatically from request for surgery [id number] Overview: Added automatically from request for surgery [id number] Added automatically from request for surgery [id number] Neuropathy 07/05/2017 History of breast cancer 02/06/2017 Pulmonary embolism ([facility]) 08/09/2016 Overview (09/05/2020): Last Assessment [...] syndrome Assessment & Plan (03/18/2018 2:54 AM CARGO SERVICE AGENT): Chronic -Continue home ropinirole Pain of lower [...] 0.6 oz pur e alcohol) [facility] Utilities Answer Date Recorded In the past 12 months has [facility] gas, oil, or water [employer] threatened to shut off services in your [...] were you homeless or living in a snf (including now)? No 10/13/2023 Comments No Sex and Gender Information Value Date Recorded Sex Assigned at Female 09/06/2020 12:50 AM CDT Legal Sex Female 10:47 AM CDT Gender Identity Female 09/06/2020 12:50 AM CDT Sexual Orientation Straight 03/18/2018 3: 01 AM CARGO SERVICE AGENT Last Filed Vital Signs Vital Sign Reading [...] 8.0(H) <5.7 % 10/14/2023 5:50 AM CDT [facility] Comment: ADA GUIDELINES 2010 5.7 TO 6.4% INCREASED RISK OF DIABETES > OR = 6.5% CONSISTENT WITH DIABETES ESTIMATED AVG GLUCOSE 183 mg/dL 10/14/2023 5:50 AM CDT [facility] 10/14/2023 3:40 AM CDT us Peggy Bland MD LABORATORY Final Result [facility] [address] [place] [address], [place] [phone] * LIPID PANEL (10/14/2023 3:40 AM CDT) CHOLESTEROL 164 <200 MG/DL 10/14/2023 4:31 AM CDT [facility] TRIGLYCERIDES 114 <150 MG/DL 10/14/2023 4:31 AM CDT [facility] HDL 46 >40.0 MG/DL 10/14/2023 4:31 AM CDT [facility] LDL (CALCULATED) 95 <100 MG/DL 10/14/19 4:31 AM CDT [facility] NON HDL CHOLESTEROL 118 <130 MG/DL 10/13 4:31 AM T [facility] CHOL/HDL RATIO 3.6 0.0 - 4.5 10/14/2023 4:31 AM T [facility] VLDL CALCULATION 23 5 - 55 MG/DL 10/14/2023 4:31 AM CDT [facility] LIPID INTERPRETATION 10/14/2023 4:31 AM CDT [facility] Comment: NIH CONCENSUS REPORT RECOMMENDATIONS: ADULT CHILD LOW RISK: CHOLESTEROL <200 <170 TRIGLYCERIDE <150 --- HDL >=60 --- LDL <100 <110 BORDERLINE: CHOLESTEROL 200-239 170-199 TRIGLYCERIDE 150-199 --- HDL 40-59 --- LDL 100-159 110-129 HIGH RISK: CHOLESTEROL >=240 >=200 TRIGLYCERIDE >=200 --- HDL <40 --- LDL >=160 >=130 10/14/2023 3:40 AM CDT Peggy Bland MD LABORATORY Final Result [facility] [address] [place] [address], [place] [phone] from Last 3 Months or Most Recently Relevant to Health Maintenance Insurance [facility] MEDICAID MEDICAID [facility] Advance Directives * Full Code (Latest [...] 2:42 AM 03/18/2018 4:50 PM Care Teams Ruffling Hemmer Automatic Relationship Specialty Start Date End Date Justen Gale MD [address] [address] PCP - General FAMILY PRACTICE 08/20/17 Meena Bansal MD [address] [facility] [address] [address] [employer] Microfabrication Engineer Manager CARDIOVASCULAR DISEASE 04/24/16
--- OUTSIDE RECORDS SUMMARY | 2024-08-05 17:46 | XMS_ITS | Encounter Summary ---
Author Organization [facility] Address [address] [place] [address] Phone Care Team Providers Care Supervisor Nuclear Medicine Name Role Phone Justen Gale MD Primary Care Provider [phone] David Roberts APRN, HOTEL OFFICE MANAGER Unavailable [phone] Annel Rod MD Unavailable Reason for Visit * Reason Onset Date Comments Results 08/02/2024 Encounter Details Date Type Department Care Team (Late st Contact Info) Description 08/02/2024 Telephone [facility] [address] [place] [address] Justen Gale MD [address] [address] Results Social History Tobacco Use Types Packs/Day [...] Description 08/07/2024 8:30 AM CDT Office Visit [facility] - Family Medicine - [place] [address] [place] [phone] Angelito Alegria APRN, NETTA [address] [address] 09/18/2024 2:45 PM CDT Office Visit [facility] - Endocrinology - [place] [address] [place] [phone] Annel Rod MD #[address] [address] documented as of this encounter Visit Diagnoses Not on filedocumented in this encounter Additional Health Concerns Assessment Noted Time PHQ-9 Depression Total Score: 0 08/02/19 25 1:09 PM CDT documented as of this encounter Care Teams Supervisor Nuclear Medicine Relationship Specialty Start Date End Date Justen Gale MD #[address] [address] PCP - General Family Medicine 10/17/17 David Roberts APRN, HOTEL OFFICE MANAGER [address] [place] [address] Nurse Practitioner Advanced Practice Nurse 01/31/22 Annel Rod MD #[address] [address] Consulting Physician Endocrinology 07/01/22 documented as of this encounter
--- OUTSIDE RECORDS SUMMARY | 2024-08-05 17:46 | XMS_ITS | Encounter Summary ---
Author Organization [facility] Address [address] [place] [address] Phone Care Team Providers Care Property Officer Name Role Phone Justen Gale MD Primary Care Provider [phone] David Roberts APRN, LAUNDRY OR DRY CLEANERS COUNTER CLERK Unavailable [phone] Annel Rod MD Unavailable Reason for Visit * Reason Onset Date Comments Muscle Pain 08/05/2024 Follow-up 08/05/2024 Encounter Details Date Type Department Care Team (Late st Contact Info) Description 08/05/2024 Nurse Triage [facility] [address] [place] [address] Justen Gale MD #[address] [address] Muscle Pain; Follow-up Social History Tobacco Use [...] Dept Phone 08/12/2024 11:30 AM Angelito Alegria [facility] - Family Medicine - [place] [phone] Patient voices understanding and is agreeable.Assistive services [...] Description 08/07/2024 8:30 AM CDT Office Visit [facility] - Family Medicine - [place] [address] [place] [address] Angelito Alegria APRN, LAUNDRY OR DRY CLEANERS COUNTER CLERK #[address] [place] [address] 09/18/2024 2:45 PM CDT Office Visit [facility] - Endocrinology - [place] [address] [place] [address] Annel Rod MD [address] [address] documented as of this encounter Visit Diagnoses Not on filedocumented in this encounter Additional Health Concerns Assessment Noted Time PHQ-9 Depression Total Score: 0 08/02/19 25 1:09 PM CDT documented as of this encounter Care Teams Property Officer Relationship Specialty Start Date End Date Justen Gale MD [address] [address] PCP - General Family Medicine 10/17/17 David Roberts APRN, LAUNDRY OR DRY CLEANERS COUNTER CLERK [address] [place] [address] Nurse Practitioner Advanced Practice Nurse 01/31/22 Annel Rod MD [address] [address] Consulting Physician Endocrinology 07/01/22 documented as of this encounter
--- OUTSIDE RECORDS SUMMARY | 2024-08-05 17:46 | XMS_ITS | Encounter Summary ---
Author Organization [facility] Address [address] [place] [address] Phone Care Team Providers Care Chips Screen Tender Name Role Phone Justen Gale MD Primary Care Provider [phone] David Roberts APRN, IMAGING ANALYST Unavailable [phone] Annel Rod MD Unavailable Reason for Visit * Reason Onset Date Comments Medication Refill 08/05/2024 Encounter Details Date Type Department Care Team (Late st Contact Info) Description 08/05/2024 MyChart RX Renewal [facility] - Endocrinology - [place] [address] [place] [address] Annel Rod MD #[address] [address] Medication Renewal Reviewed Social History [...] Description 08/07/2024 8:30 AM CDT Office Visit [facility] - Family Medicine [facility] [address] [place] [address] Angelito Alegria APRN, IMAGING ANALYST #[address] [address] 09/18/2024 2:45 PM CDT Office Visit [facility] - Endocrinology - [place] [address] [place] [phone] Annel Rod MD #[address] [address] documented as of this encounter Visit Diagnoses Not on filedocumented in this encounter Additional Health Concerns Assessment Noted Time PHQ-9 Depression Total Score: 0 08/02/19 25 1:09 PM CDT documented as of this encounter Care Teams Chips Screen Tender Relationship Specialty Start Date End Date Justen Gale MD #[address] [address] PCP - General Family Medicine 10/17/17 David Roberts APRN, IMAGING ANALYST [address] [place] [address] Nurse Practitioner Advanced Practice Nurse 01/31/22 Annel Rod MD [address] [address] Consulting Physician Endocrinology 07/01/22 documented as of this encounter
--- OUTSIDE RECORDS SUMMARY | 2024-08-05 17:47 | XMS_ITS | Encounter Summary ---
Author Organization [facility] Address [address] [place] [address] Phone Care Team Providers Care Vulcanizer Rubber Plate Name Role Phone Justen Gale MD Primary Care Provider [phone] David Roberts APRN, INDUSTRIAL ROOF PLUMBER Unavailable [phone] Annel Rod MD Unavailable Reason for Visit * Reason Comments Medication Refill Encounter Details Date Type Department Care Team (Late st Contact Info) Description 09/30/2023 Refill [facility] - Endocrinology - [place] [address] [place] [address] Annel oRd MD #[address] [address] Medication Refill Social History Tobacco [...] AM CDT Medication(s) refilled and signed per [facility] Chronic Medication Refill Standing Order for Pediatric and Adult Patients. documented in this encounter Plan of Treatment Upcoming Encounters Date Type Department Care Team (Late st Contact Info) Description 08/07/2024 8:30 AM CDT Office Visit [facility] - Family Medicine - [place] [address] [place] [address] Angelito Alegria APRN, INDUSTRIAL ROOF PLUMBER #2 [facility] [address] [place] [address] 09/18/2024 2:45 PM CDT Office Visit [facility] - Endocrinology - [place] [address] [place] [address] Annel Rod MD #[address] [address] documented as of this encounter Visit Diagnoses Not on filedocumented in this encounter Additional Health Concerns Infection Onset Date Last Indicated Resolved Time COVID - 19 08/01/2024 08/01/2024 08/01/2024 3:20 PM CDT Assessment Noted Time PHQ-9 Depression Total Score: 8 01/18/20 23 2:24 PM CDT documented as of this encounter Care Teams Vulcanizer Rubber Plate Relationship Specialty Start Date End Date Justen Gale MD #[address] [address] PCP - General Family Medicine 10/17/17 David Roberts APRN, NETTA #[address] [place] [address] Nurse Practitioner Advanced Practice Nurse 01/31/22 Annel Rod MD #[address] [facility] [address] [place] [address] Consulting Physician Endocrinology 07/01/22 documented as of this encounter
--- OUTSIDE RECORDS SUMMARY | 2024-08-05 17:47 | XMS_ITS | Clinical Summary ---
Author Organization [facility] Address [address] [place] [address] Phone Care Team Providers Care Roller Name Role Phone Justen Gale MD Primary Care Provider [phone] David Roberts APRN, OPERATOR AND TRUCK DRIVER Unavailable [phone] Annel Rod MD Unavailable Allergies Active Allergy [...] of insulin (FORMERLY [facility]) Diagnosis: Diabetes Type 2 Blood testing frequency: [...] Blood Gluc Sensor (FreeStyle Eileen 2 Sensor) [facility] APPLY 1 SENSOR AND WEAR FOR 14 DAYS TO CHECK BLOOD SUGAR 6 Each 1 4 Active albuterol 108 (90 Base) MCG/ACT Aerosol Solution take 2 Puffs by inhalation. 1 Active gabapentin (NEURONTIN) 300 MG Capsule Take 300 mg by mouth. 4 Active HYDROcodone-ac etaminophen (NORCO) 10-325 MG Tablet Take 1 Tablet by mouth. 4 Active Multiple Vitamins-[place] als (WOMENS MULTI PO) Take by mouth. [...] Continuous Glucose Sensor (FreeStyle Eileen 2 Sensor) [facility] 1 Each by Does not apply route every 14 days. Change sensor every 14 days. E11.42, insulin dependent 6 Each 1 5 Active azithromycin (ZITHROMAX) 250 MG Tablet Take 1 Tablet by mouth daily for 5 days. 2 tab(s) daily for 1 day, then 1 tab(s) daily for days 2-5. 6 Tablet 5 025 Active Continuous Glucose Sensor (FreeStyle Eileen 2 Sensor) [facility] 1 Each by Does not apply route [...] Continuous Glucose Sensor (FreeStyle Eileen 2 Sensor) [facility] APPLY 1 SENSOR AND WEAR FOR 14 [...] Overview: Added automatically from request for surgery [id number] Lymphedema of left upper extremity 08/09/2016 Pulmonary embolism 08/09/2016 Overview (11/09/2017): Last Assessment & Plan: On Rivaroxaban Arthralgia of ankle 01/26/2015 Cellulitis of breast 11/11/2014 Encounters Date Type Department Care Team Description 08/05/2024 MyChart RX Renewal [facility] - [place] [address] [place] [phone] Annel Rod MD Medication Renewal Reviewed 08/05/2024 [facility] [address] [place] [phone] Justen Gale MD Muscle Pain; Follow-up 08/03/2024 3:36 AM CDT - 08/03/2024 7:05 AM CDT [facility] [address] [place] [address] Sergio Rivera MD Myalgia Discharge Disposition: Discharged to home or Selfcare 08/02/2024 Travel 08/02/2024 [facility] [address] [place] [phone] Justen Gale MD Hemoptysis 08/02/2024 [facility]phone [facility] [address] [place] [phone] Justen Gale MD Results 08/02/2024 Telephone [facility] [address] [place] [phone] Angelito Alegria APRN, OPERATOR AND TRUCK DRIVER Results 08/02/2024 MyChart RX Renewal [facility] Endocrinology [facility] [address] [place] [phone] Annel Rod MD Medication Renewal Reviewed 08/01/2024 2:13 PM CDT - 08/01/2024 4:16 PM CDT Emergency [facility] Emergency [address] [place] [address] Jack Leiva MD Dyspnea on exertion Discharge Disposition: Discharged to home or Selfcare 08/01/2024 1:15 PM CDT Office Visit [facility] [address] [place] [address] Angelito Alegria APRN, OPERATOR AND TRUCK DRIVER Body aches (Primary Dx) Discharge Disposition: Discharged to home or Selfcare 08/01/2024 Travel 08/01/2024 [facility] [address] [place] [phone] Justen Gale MD Pain 07/22/2024 Telephone [facility] [address] [place] [phone] Justen Gale MD Appointment 07/11/2024 Nurse Triage [facility] [address] [place] [phone] Justen Gale MD Toe Problem 06/14/2024 Nurse Triage [facility] [address] [place] [phone] Justen Gale MD Urinary Incontinence; Urinary Problem 05/28/2024 Nurse Triage [facility] [address] [place] [phone] Justen Gale MD Nausea; Fatigue 05/14/2024 Nurse Triage [facility] [address] [place] [phone] Justen Gale MD Arm Swelling; Arm Pain 05/13/2024 Results Follow-Up [facility] Medical [facility] [address] [place] [address] Justen Gale MD from Last 3 Months Immunizations Immunization Administration Dates Next Due Covid-19 Vaccine, Vector-nr, Rs-ad26, Pf, 0.5 Ml ([employer] [employer] [address]Check[employer]Me) 06/29/2020 Influenza Vaccine greater than 3 yrs [...] Description 08/07/2024 8:30 AM CDT Office Visit [facility] Medical Group - Family Medicine [facility] [address] [place] [phone] Angelito Alegria, RUMPER, OPERATOR AND TRUCK DRIVER #2 [facility] [address] [place], [place] [phone] 09/18/2024 2:45 PM CDT Office Visit [facility] Medical [facility] - Endocrinology - [place] [address] [place] [phone] Annel Rod MD #2 [facility] [address] [place] [address] Health Maintenance Due Date Last Done Comments [...] CDT CT - ABDOMEN/PELVIS 06/21/2024 12:00 AM SENIOR QUALITY TECHNICIAN XR - LOWER EXTREMITY 06/20/2024 12:00 AM SENIOR QUALITY TECHNICIAN PAIN CONSULT 05/20/2024 12:00 AM SENIOR QUALITY TECHNICIAN XR - CHEST 05/15/2024 12:00 AM SENIOR QUALITY TECHNICIAN URINALYSIS (UA) RANDOM 12:00 AM SENIOR QUALITY TECHNICIAN XR - CHEST 05/14/2024 12:00 AM SENIOR QUALITY TECHNICIAN EXTERNAL GASTROENTEROLOGY REFERRAL Less Than 1 week 05/07/2024 12:00 AM SENIOR QUALITY TECHNICIAN Nausea and vomiting, unspecified vomiting type Pain of upper abdomen HEMOGLOBIN, A1C 10/02/2023 12:00 AM CDT HUMAN PAPILLOMA VIRUS (HPV) Routine 07/05/2022 2:24 PM CDT Encounter for gynecological examination with abnormal finding Encounter for screening for human papillomavirus (HPV) PATHOLOGY CYTOLOGY [place] Routine 2:24 PM CDT Encounter for gynecological [...] Sen Sy M.D. JANIYA: JANIYA Report ID: [id number] Reading Location: [id number] Procedure Note Dillon Sy MD - 08/03/2024 [...] Sen Sy M.D. JANIYA: JANIYA Report ID: [id number] Reading Location: [id number] IMPRESSION: Negative right hip. Sergio Rivera MD [...] signed by Patrick STOCKTON: KATH Report ID: [id number] Reading Location: [id number] Procedure Note Patrick Zhou MD - 08/03/2024 [...] Patrick Zhou M.D. KH: KATH Report ID: [id number] Reading Location: [id number] IMPRESSION: Mild bilateral infiltrates are suspected superimposed on chronic lung changes. Sergio Rivera MD IM DIAGNOSTIC ORDERABLES Final Result * CBC with Auto Differential (08/02/2024 11:21 PM CDT) Only the most recent of2 resultswithin the time period is included. WBC 9.26 4.00 - 12.00 10(3)/mcL 08/03/2024 12:08 AM CDT [facility] RBC 4.62 3.80 - 5.30 10(6)/mcL 08/03/2024 12:08 AM CDT [facility] HEMOGLOBIN (HGB) 13.5 12.0 - 15.8 g/dL 08/03/2024 12:08 AM CDT [facility] HEMATOCRIT (HCT) 42.9 36.0 - 47.0 % 08/03/2024 12:08 AM CDT [facility] MCV 92.9 82.0 - 96.0 fL 08/03/2024 12:08 AM CDT [facility] MCH 29.2 26.0 - 34.0 pg 08/03/2024 12:08 AM CDT [facility] MCHC 31.5 31.0 - 36.0 g/dL 08/03/2024 12:08 AM CDT [facility] PLATELET COUNT 272 140 - 440 10(3)/mcL 08/03/2024 12:08 AM CDT [facility] RDW 12.8 11.8 - 15.5 % 08/03/2024 12:08 AM CDT [facility] MPV 10.2 9.7 - 12.4 fL 08/03/2024 12:08 AM CDT [facility] NEUTROPHILS 62.5 47.0 - 73.0 % 08/03/2024 12:08 AM CDT [facility] LYMPHOCYTES 27.1 18.0 - 42.0 % 08/03/2024 12:08 AM CDT [facility] MONOCYTES 7.1 4.0 - 12.0 % 08/03/2024 12:08 AM CDT [facility] EOSINOPHILS 3.0 0.0 - 5.0 % 08/03/2024 12:08 AM CDT [facility] BASOPHILS 0.3 0.0 - 1.0 % 08/03/2024 12:08 AM CDT [facility] ABSOLUTE NEUTROPHILS 5.78 1.60 - 7.70 10(3)/mcL 08/03/2024 12:08 AM CDT [facility] ABSOLUTE LYMPHOCYTES 2.51 1.30 - 3.20 10(3)/[facility] 08/03/2024 12:08 AM CDT [facility] ABSOLUTE MONOCYTES 0.66 0.20 - 1.00 10(3)/[facility] 08/03/2024 12:08 AM CDT [facility] ABSOLUTE EOSINOPHIL 0.28 0.00 - 0.40 10(3)/[facility] 08/03/2024 12:08 AM CDT [facility] ABSOLUTE BASOPHILS 0.03 0.00 - 0.10 10(3)/[facility] 08/03/2024 12:08 AM CDT [facility] NRBC PER 100 WBC 0 08/04/19 12:08 AM CDT [facility] Blood Venipuncture / Unknown 08/02/2024 11:21 PM CDT 08/03/2024 12:05 AM CDT us Sergio Rivera MD HEMATOLOGY ORDERABLES Final Resu lt [facility] [address] [place] [address] * (ABNORMAL) CMP (Comprehensive Metabolic Panel) (08/02/2024 11:21 PM CDT) Only the most recent of2 resultswithin the time period is included. SODIUM 138 136 - 145 mmol/L 08/03/2024 12:29 AM CDT [facility] POTASSIUM 4.4 3.5 - 5.1 mmol/L 08/03/2024 12:29 AM CDT [facility] CHLORIDE 104 98 - 107 mmol/L 08/03/2024 12:29 AM CDT [facility] CO2, VENOUS 26 22 - 30 mmol/L 08/03/2024 12:29 AM CDT [facility] ANION GAP 12.4 <18.0 mmol/L 08/03/2024 12:29 AM CDT [facility] GLUCOSE 353(H) 70 - 99 mg/dL 08/03/2024 12:29 AM [facility] BUN 18 10 - 20 mg/dL 08/03/2024 12:29 AM [facility] CREATININE, BLOOD 0.80 0.60 - 1.00 mg/dL 08/03/2024 12:29 AM [facility] BUN/CREATININE RATIO 23(H) 12 - 20 ratio 08/03/2024 12:29 AM [facility] TOTAL PROTEIN 8.4(H) 6.0 - 8.0 g/dL 08/03/2024 12:29 AM [facility] ALBUMIN 3.8 3.5 - 5.0 g/dL 08/03/2024 12:29 AM [facility] A/G RATIO 0.8(L) 1.0 - 2.2 08/03/2024 12:29 AM [facility] CALCIUM 10.0 8.7 - 10.5 mg/dL 08/03/2024 12:29 AM [facility] T BILI 0.4 0.2 - 1.2 mg/dL 08/03/2024 12:29 AM [facility] SGOT (AST) 23 <43 U/L 08/03/2024 12:29 AM [facility] SGPT (ALT) 22 <56 U/L 08/03/2024 12:29 AM [facility] ALKALINE PHOSPHATASE 67 40 - 150 U/L 08/03/2024 12:29 AM [facility] GFR, ESTIMATED >60 >=60 08/03/2024 12:29 AM [facility] Comment: Creatinine Clearance is the preferred criteria for selecting drug dose adjustments in renally impaired patients. The GFR is provided as additional pertinent clinical information. GFR is reported in mL/min/1.73 sq m. Calculation based on the Chronic Kidney Disease Epidemiology Collaboration (CKD- EPI) equation refit without adjustment for race. GFR, EST. >60 >=60 025 12:29 AM CDT [facility] GFR, EST. NONAFRICAN >60 >=60 08/03/2024 12:29 AM CDT [facility] Blood Venipuncture / Unknown 08/02/2024 11:21 PM CDT 08/03/2024 12:05 AM CDT Sergio Rivera MD CHEMISTRY ORDERABLES Final Resul t Performing Organization Address City/[facility]/ZIP Co de Phone Number [facility] [address] [place] [address] * TROPONIN I, HIGH SENSITIVITY (HSTRP) (08/01/2024 2:48 PM CDT) [facility] TROPONIN I, HIGH SENSITIVITY- [place] 4 <=14 ng/L 08/01/2024 3:45 PM CDT [facility] Comment: High-sensitivity troponin I results are reported in ng/L making the result appear to be 1,000 times higher than the contemporary troponin I value which is reported in ng/ml. Results from [place]. Blood Venipuncture / Unknown 08/01/2024 2:48 PM CDT 08/01/2024 3:08 PM CDT Jack Leiva MD CHEMISTRY ORDERABLES Deann l Result Performing Organization Address City/[facility]/ZIP Co de Phone Number [facility] [address] [place] [address] * Gold Top Tube (08/01/2024 2:48 PM CDT) Blood No Phlebotomy Charged / Unknown 08/01/2024 2:48 PM CDT 08/01/2024 3:12 PM CDT Jack Leiva MD CHEMISTRY ORDERABLES Deann l Result [facility] [address] [place] [address] * Blue Top Tube (08/01/2024 2:48 PM CDT) Blood No Phlebotomy Charged / Unknown 08/01/2024 2:48 PM CDT 08/01/2024 3:12 PM CDT Jack Leiva MD HEMATOLOGY ORDERABLES Fin al Result Performing Organization Address [facility] Co de Phone Number [facility] [address] [place] [address] * (ABNORMAL) ESR - Erythrocyte Sed. Rate (08/01/2024 2:48 PM CDT) ESR (SED RATE, ERYTHROCYTE SEDIMENTATION RATE) 66(H) <30 mm/h 08/01/2024 3:22 PM CDT [facility] Comment: Patients presenting with increased level of fibrinogen, gamma globulins, or abnormally shaped RBCs could affect the results for the erythrocyte sedimentation rate (ESR). Results should be clinically correlated. Blood Venipuncture / Unknown 08/01/2024 2:48 PM CDT 08/01/2024 3:08 PM CDT Jack Leiva MD HEMATOLOGY ORDERABLES Fin al Result Performing Organization Address [facility] Co de Phone Number [facility] [address] [place] [address] * Magnesium (08/01/2024 2:48 PM CDT) MAGNESIUM 1.6 1.6 - 2.6 mg/dL 08/01/2024 3:39 PM CDT [facility] Blood Venipuncture / Unknown 08/01/2024 2:48 PM CDT 08/01/2024 3:08 PM CDT Jack Leiva MD CHEMISTRY ORDERABLES Deann l Result Performing Organization Address City/[facility] Co de Phone Number [facility] [address] [place] [address] * CK - Total (08/01/2024 2:48 PM CDT) Pathologist [facility] CK (CPK) 137 29 - 168 U/L 08/01/2024 3:39 PM CDT [facility] Blood Venipuncture / Unknown 08/01/2024 2:48 PM CDT 08/01/2024 3:08 PM CDT Jack Leiva MD HEMATOLOGY ORDERABLES Fin al Result [facility] [address] [place] [address] * (ABNORMAL) CRP - C-Reactive Protein (08/01/2024 2:48 PM CDT) [facility] C-REACTIVE PROTEIN 4.07(H) <0.50 mg/dL 08/01/2024 3:39 PM CDT [facility] Blood Venipuncture / Unknown 08/01/2024 2:48 PM CDT 08/01/2024 3:08 PM CDT Jack Leiva MD CHEMISTRY ORDERABLES Deann l Result [facility] [address] [place] [address] * B-Type Natriuretic Peptide (BNP) (08/01/2024 2:48 PM CDT) Pathologist [facility] B TYPE NATRIURETIC PEPTIDE 23 <100 pg/mL 08/01/2024 3:37 PM CDT [facility] Blood Venipuncture / Unknown 08/01/2024 2:48 PM CDT 08/01/2024 3:08 PM CDT Jack Leiva MD CHEMISTRY ORDERABLES Deann l Result Performing Organization Address City/[facility] Co de Phone Number [facility] [address] [place] [address] * EKG 12 LEAD (08/01/2024 2:41 PM CDT) Ventricular Rate 75 BPM EXTERNAL EKG Atrial Rate 75 BPM EXTERNAL EKG P-R Interval 134 ms EXTERNAL EKG QRS Duration 82 ms EXTERNAL EKG Q-T Duration 380 ms EXTERNAL EKG QTC CALCULATION 424 ms EXTERNAL EKG P [place] -77 degrees EXTERNAL EKG R [place] 28 degrees EXTERNAL EKG T [place] 53 degrees EXTERNAL EKG 08/01/2024 2:41 PM CDT Impressions EXTERNAL EKG - 08/04/2024 12:00 PM CDT Atrial-sensed ventricular-paced rhythm Abnormal ECG No previous ECGs available Confirmed by Maryann Clay ([id number]) on 08/04/2024 11:59:59 AM Narrative Procedure Note Maryann Clay MD - 08/04/2024 IMPRESSION: Atrial-sensed ventricular-paced rhythm Abnormal ECG No previous ECGs available Confirmed by Maryann Clay ([id number]) on 08/04/2024 11:59:59 AM us Jack Leiva MD IMG ECG ORDERABLES Final Result Performing Organization Address [facility] de Phone Number EXTERNAL EKG * [...] Romelia Bowen D.O. PS: PS Report ID: [id number] Reading Location: [id number] Procedure Note Romelia Bowen DO - 08/01/2024 [...] Romelia Bowen D.O. PS: PS Report ID: [id number] Reading Location: [id number] IMPRESSION: Patchy left basilar airspace opacities, which may be related to subsegmental atelectasis/scarring versus developing airspace disease. us Jack Leiva MD [facility] ORDERABLES Final Result * RSV,SARS-COV-2,INFLUENZA A&B BY PCR (08/01/2024 2:28 PM CDT) FLU A Negative Negative, Error 08/01/2024 3:20 PM CDT [facility] FLU B Negative Negative 08/01/2024 3:20 PM CDT [facility] RESP SYNC VIRUS Negative Negative 3:20 PM CDT [facility] SARSCOV2 NOT DETECTED (Reference Range for this test is Not Detected) 08/01/2024 3:20 PM CDT [facility] Comment:This test was perfor med by a [employer] Pilot PCR Method. Swab NASOPHARYNGEAL STRUCTURE / Unknown Non-Phlebotomy Collection / Unknown 08/01/2024 2:28 PM CDT 08/01/2024 2:33 PM CDT us Jack Leiva MD MICROBIOLOGY - GENERAL OR DERABLES Final Result Performing Organization Address [facility] de Phone Number [facility] [address] [place] [address] * EKG SCAN (08/01/2024 12:00 AM CDT) 08/01/2024 Provider Scan IMG ECG ORDERABLES Final Result Performing Organization Address City/[facility] Co de Phone Number RESULTING AGENCY * PAIN CONSULT (07/24/2024 12:00 AM CDT) Only the most recent of2 resultswithin the time period is included. 07/24/2024 us Justen Gale MD GENERIC SCAN ORDERS CONSULT F inal Result Performing Organization Address [facility] Co de Phone Number SCAN * CT - CHEST (07/22/2024 12:00 AM CDT) 07/22/[address] ORDERABLES Final Result Performing Organization Address [facility] de Phone Number SCAN * XR - CHEST (07/21/2024 12:00 AM CDT) Only the most recent of3 resultswithin the time period is included. 07/21/2024 us Provider Scan IMG DIAGNOSTIC ORDERABLES Final Result Performing Organization Address [facility] de Phone Number SCAN * XR - LOWER EXTREMITY (07/10/2024 12:00 AM CDT) Only the most recent of2 resultswithin the time period is included. 07/10/2024 us Provider Scan IMG DIAGNOSTIC ORDERABLES Final Result Performing Organization Address [facility] de Phone Number SCAN * CT - ABDOMEN/PELVIS (06/21/2024 12:00 AM SENIOR QUALITY TECHNICIAN) 06/21/2024 us Provider Scan IMG CT ORDERABLES Final Result Performing Organization Address [facility] de Phone Number SCAN * URINALYSIS (UA) RANDOM (05/14/2024 12:00 AM SENIOR QUALITY TECHNICIAN) 05/14/2024 us Provider Scan URINE ORDERABLES Final Result Performing Organization Address [facility] de Phone Number SCAN * EXTERNAL GASTROENTEROLOGY REFERRAL (05/07/2024 12:00 AM SENIOR QUALITY TECHNICIAN) 05/07/2024 Justen Gale MD OUTPT REFERRALS EXT/INT Final Result Performing Organization [facility] de Phone Number SCAN * HEMOGLOBIN, A1C (10/02/2023 12:00 AM CDT) HGB-A1C 7.8 SCAN 10/02/2023 us Provider Scan CHEMISTRY ORDERABLES Final Resul t Performing Organization [facility] de Phone Number SCAN * PATHOLOGY CYTOLOGY [place] (07/05/2022 2:24 PM CDT) SPECIMEN ADEQUACY A scant cellular component is noted. Scant cellularity is likely due to presence of lubricant. 07/08/2022 8:38 AM CDT [facility] DESCRIPTIVE DIAGNOSIS NEGATIVE FOR INTRAEPITHELIAL LESIONS OR MALIGNANCY. 07/08/2022 8:38 AM CDT [facility] at 0838 CDT OTHER FINDINGS Atrophic hormonal pattern. 07/08/2022 8:38 AM CDT [facility] Automated Examination This sample was not evaluated by the automated imaging and review system ([employer], [employer], [place], [place] due to technical and / or biologic factor(s). The case was screened, reviewed, and finalized by a leather production worker and / or pathologist. 07/08/2022 8:38 AM CDT [facility] Disclaimer The PAP smear is a screening [...] unless clinically indicated. 07/08/2022 8:38 AM CDT [facility] Other CERVIX UTERI STRUCTURE / Unknown Non-Phlebotomy Collection / Unknown 07/05/2022 2:24 PM CDT 07/05/2022 2:24 PM CDT us Pili Elkins APRN, NETTA PATHOLOGY/CYTOLOGY O RDERABLES Final Result [facility] [address] [place] [address], [place] * HUMAN PAPILLOMA VIRUS (HPV) (07/05/2022 2:24 PM CDT) HPV OTHER HIGH RISK TYPES, PCR NEGATIVE NEGATIVE 07/06/2022 2:37 PM CDT [facility] Comment: The following Other High Risk types [...] 16 NEGATIVE NEGATIVE 07/06/2022 2:37 PM CDT [facility] Comment: A negative high-risk HPV result does [...] 18 NEGATIVE NEGATIVE 07/06/2022 2:37 PM CDT [facility] Comment: A negative high-risk HPV result does [...] DIAGNOSTIC SCREENING 07/06/2022 2:37 PM CDT [facility] Other Non-Phlebotomy Collection / Unknown 07/05/2022 2:24 PM CDT 07/05/2022 2:24 PM CDT Narrative [facility] - 07/06/2022 2:37 PM CDT Performed by Real-Time Polymerase Chain Reaction (PCR) on the Ronnie Vinay 4800. This assay has been validated for use with post-aliquot samples from the [employer] T5000 processor. us Pili Elkins APRN, NET[facility] LAB SEND OUTS Deann l Result [facility] [address] [place] [address], [place] [facility] [address] [place] [address] * COLONOSCOPY (01/09/2020) us Genaro Jensen DO PROCEDURE/MINOR SURGICAL ORDERA BLES Final Result * AMB REFERRAL TO PODIATRY (08/13/2019) Alvarez Mensah MD OUTPATIENT REFERRALS Final Res ult * POCT STOOL, OCCULT BLOOD, DIAGNOSTIC (09/07/2018 1:20 PM CDT) OCCULT BLOOD, STOOL Negative Negative, Other POC HEMOCULT CONTROL Continuity Person Pass 09/07/2018 1:20 PM CDT Pili Elkins APRN, NETTA POINT OF CARE TESTIN G (MANUAL) Final Result from Last 3 Months or Most Recently Relevant to Health Maintenance Insurance MEDICARE C [facility] Care Teams Roller Relationship Specialty Start Date End Date Justen Gale MD [address] [address] PCP - General Family Medicine 10/17/17 David Roberts APRN, OPERATOR AND TRUCK DRIVER [address] [place] [address] Nurse Practitioner Advanced Practice Nurse 01/31/22 Annel Rod MD #2 [facility] [address] [place] [address] Consulting Physician Endocrinology 07/01/22
--- OUTSIDE RECORDS SUMMARY | 2024-08-05 17:47 | XMS_ITS | Encounter Summary ---
Author Organization [facility] Address [address] [place] [address] Phone Care Team Providers Care Agriculture Sales Account Manager Name Role Phone Lavonne Hathaway MD Primary Care Provider + [phone] Liu Jerez MD Unavailable [phone] Albert Corbin MD Unavailable [phone] Justen Gale MD Primary Care Provider [phone] Lavonne Hathaway MD Primary Care Provider + [phone] Justen Gale MD Primary Care Provider + [phone] Khris Arthur MD Unavailable + [phone] Ko Melendez MD Unavailable [phone] John Paul Moyer MD Unavailable Annel Rod MD Unavailable Anali MARSHALL MD, Carlos M. Unavailable [phone] Encounter Details Date Type Department Care Team ([facility] Contact Info) Description 05/15/2017 Orders Only [facility] Scanning, Provider Social History Tobacco Use Types Packs/Day Years Used Date Smoking Tobacco: Former Alcohol Use Standard Drinks/Week Comments No 0 (1 standard drink = 0.6 oz pur e alcohol) Comments Unknown Sex and Gender Information Value Date Recorded Sex Assigned at Not on file Legal Sex Female 12:24 AM CARPET OR RUG LAYER HELPER Gender Identity Not on file Sexual [...] COVID: Recovered 02/10/2022 02/10/2022 06/10/2022 3:05 AM CARPET OR RUG LAYER HELPER Exposure, COVID-19 Comment:Added automatically based on COVID19 lab answers indicating exposure risk 02/11/2022 02/11/2022 02/15/2022 9:06 AM C DT COVID: Suspected 05/14/2022 05/14/2022 05/14/2022 10:41 AM CARPET OR RUG LAYER HELPER COVID: Suspected 06/07/2022 06/07/2022 06/07/2022 12:28 PM CARPET OR RUG LAYER HELPER COVID: Suspected 06/21/2022 06/21/2022 06/21/2022 2:12 AM CARPET OR RUG LAYER HELPER COVID: Suspected 10/05/2022 10/05/2022 10/05/2022 7:40 PM CDT COVID: Suspected 01/04/2024 01/04/2024 01/04/2024 10:30 PM CDT COVID: Suspected 02/14/2024 02/14/2024 02/15/2024 12:36 AM CDT COVID: Suspected 07/01/2024 07/01/2024 07/01/2024 2:53 PM CDT COVID: Suspected 07/01/2024 07/01/2024 07/02/2024 3:05 AM CDT documented as of this encounter Care Teams Agriculture Sales Account Manager Relationship Specialty Start Date End Date Lavonne Hathaway MD [address] [place] [address] [place] [address] PCP - General 08/16/16 08/17/17 Justen Gale MD [address] [facility] [address] [address] PCP - General 08/18/17 08/22/17 Lavonne Hathaway MD [address] [place] [address] [place] [address] PCP - General Family Medicine 08/23/17 10/08/17 Justen Gale MD 2 [facility] [address] [address] PCP - General 10/09/17 Liu Jerez MD [address] [place] [address] [place] [address] Consulting Physician Gastroenterology 07/28/17 [place] [address] [facility] [address] [place] [address] Consulting Physician Pulmonary Disease 08/03/17 Khris Arthur MD 49[address] [facility] [address] [place] [address] Medical Oncologist/Clerk Of Court Medical Oncology 10/23/17 [place] [address] [facility] [address] [place] [address] Surgeon Orthopedic Surgery 10/23/17 [place] [address] [facility] [address] [place] [address] Consulting Physician Pain Management 10/23/17 [place] [address] [facility] [address] [place] [address] Referring Physician General Surgery 01/26/18 [place] [address] [facility] [address] [place] [address] Consulting Physician Neurology 01/26/18 documented as of this encounter
--- OUTSIDE RECORDS SUMMARY | 2024-08-05 17:47 | XMS_ITS | Encounter Summary ---
Author Organization [facility] Address [address] [place] [address] Phone Care Team Providers Care Milk Route Supervisor Name Role Phone Justen Gale MD Primary Care Provider [phone] David Roberts APRN, MEMBERSHIP COORDINATOR Unavailable [phone] Annel Rod MD Unavailable Reason for Visit * Reason Onset Date Comments Advice Only 11/21/2023 Encounter Details Date Type Department Care Team (Late st Contact Info) Description 11/21/2023 Telephone [facility] [address] [place] [address] Justen Gale MD #[address] [address] Advice Only Social History Tobacco Use Types [...] 11/21/2023 3:17 PM CDT RFC: Alejandra from [facility] is calling to state that patient is listed as being a diabteic but is not on a statin. Please call Alejandra (relationship to patient n/a) back regarding above referenced patient. Patient's Provider is Justen Gale MD . documented in this encounter Plan of Treatment Upcoming Encounters Date Type Department Care Team (Late st Contact Info) Description 08/07/2024 8:30 AM CDT Office Visit [facility] - Family Medicine - [place] #2 [place] [address] Angelito Alegria APRN, MEMBERSHIP COORDINATOR #2 [facility] [address] [place] [address] 09/18/2024 2:45 PM CDT Office Visit [facility] - Endocrinology - [place] #2 [place] [address] Annel Rod MD #2 [facility] [address] [place] [address] documented as of this encounter Visit Diagnoses Not on filedocumented in this encounter Additional Health Concerns Infection Onset Date Last Indicated Resolved Time COVID - 19 08/01/2024 08/01/2024 08/01/2024 3:20 PM CDT Assessment Noted Time PHQ-9 Depression Total Score: 8 01/18/20 23 2:24 PM CDT documented as of this encounter Care Teams Milk Route Supervisor Relationship Specialty Start Date End Date Justen Gale MD #[address] [address] PCP - General Family Medicine 10/17/17 David Roberts APRN, MEMBERSHIP COORDINATOR #2 [place] [address] Nurse Practitioner Advanced Practice Nurse 01/31/22 Annel Rod MD #[address] [address] Consulting Physician Endocrinology 07/01/22 documented as of this encounter
--- OUTSIDE RECORDS SUMMARY | 2024-08-05 17:47 | XMS_ITS | Encounter Summary ---
Author Organization [facility] Address [address] [place] [address] Phone Care Team Providers Care Cognos Tm1 Developer Name Role Phone Justen Gale MD Primary Care Provider David Roberts APRN, PERSONAL DEVELOPMENT MENTOR Unavailable [phone] Annel Rod MD Unavailable Reason for Visit * Reason Comments Medication Refill Encounter Details Date Type Department Care Team (Late st Contact Info) Description 02/07/2023 [facility]ill [facility] Medicine [facility] #2 [place] [address] Catrina Quiñonez MD #2 [place] [address] Medication Refill Social History Tobacco Use Types [...] 03/03/22 Office Visit Pili Elkins APRN, NETTA [facility] [place] Showing recent visits within past 365 days and meeting all other requirements Future Appointments No visits were found meeting these conditions. Showing future appointments within next 90 days and meeting all other requirements documented in this encounter Plan of Treatment Upcoming Encounters Date Type Department Care Team (Late st Contact Info) Description 08/07/2024 8:30 AM CDT Office Visit [facility] Medical [facility] - Family Medicine - [place] #2 [place] [address] Angelito Alegria APRN, PERSONAL DEVELOPMENT MENTOR [address] [place] [address] 09/18/2024 2:45 PM CDT Office Visit [facility] - Endocrinology - [place] #[facility] [place] [address] Annel Rod MD #[address] [address] documented as of this encounter Visit Diagnoses Not on filedocumented in this encounter Additional Health Concerns Infection Onset Date Last Indicated Resolved Time COVID - 19 08/01/2024 08/01/2024 08/01/2024 3:20 PM CDT Assessment Noted Time PHQ-9 Depression Total Score: 8 01/18/20 2:24 PM CDT documented as of this encounter Care Teams Cognos Tm1 Developer Relationship Specialty Start Date End Date Justen Gale MD #[address] [address] PCP - General Family Medicine 10/17/17 David Roberts APRN, PERSONAL DEVELOPMENT MENTOR #2 [place] [address] Nurse Practitioner Advanced Practice Nurse 01/31/22 Annel Rod MD #[address] [address] Consulting Physician Endocrinology 07/01/22 documented as of this encounter
--- OUTSIDE RECORDS SUMMARY | 2024-08-05 17:47 | XMS_ITS | Encounter Summary ---
Author Organization [facility] Address [address] [place] [address] Phone Care Team Providers Care Shift Stacker Name Role Phone Justen Gale MD Primary Care Provider [phone] David Roberts APRN, NANOTECHNICIAN Unavailable [phone] Annel Rod MD Unavailable Reason for Visit * Reason Comments Medication Refill Encounter Details Date Type Department Care Team (Late st Contact Info) Description 08/07/2023 [facility]ill [facility] - Endocrinology - [place] #2 [place] [address] Annel Rod MD #[address] [address] Medication Refill Social History Tobacco [...] AM CDT Medication(s) refilled and signed per [facility] Chronic Medication Refill Standing Order for Pediatric and Adult Patients. documented in this encounter Plan of Treatment Upcoming Encounters Date Type Department Care Team (Late st Contact Info) Description 08/07/2024 8:30 AM CDT Office Visit [facility] - Family Medicine - [place] #2 [place] [address] Angelito Alegria APRN, NANOTECHNICIAN #2 [facility] [address] [place] [address] 09/18/2024 2:45 PM CDT Office Visit [facility] - Endocrinology - [place] #2 [place] [address] Annel Rod MD #[address] [address] documented as of this encounter Visit Diagnoses Not on filedocumented in this encounter Additional Health Concerns Infection Onset Date Last Indicated Resolved Time COVID - 19 08/01/2024 08/01/2024 08/01/2024 3:20 PM CDT Assessment Noted Time PHQ-9 Depression Total Score: 8 01/18/20 23 2:24 PM CDT documented as of this encounter Care Teams Shift Stacker Relationship Specialty Start Date End Date Justen Gale MD #[address] [address] PCP - General Family Medicine 10/17/17 David Roberts APRN, NETTA #[address] [place] [address] Nurse Practitioner Advanced Practice Nurse 01/31/22 Annel Rod MD #[address] [facility] [address] [place] [address] Consulting Physician Endocrinology 07/01/22 documented as of this encounter
--- OUTSIDE RECORDS SUMMARY | 2024-08-05 17:47 | XMS_ITS | Encounter Summary ---
Author Organization [facility] Address [address] [place] [address] Phone Care Team Providers Care Concrete Tile Machine Operator Name Role Phone Justen Gale MD Primary Care Provider David Roberts APRN, MANAGER WOUND CARE Unavailable [phone] Annel Rod MD Unavailable Reason for Visit * Reason Comments Medication Refill Encounter Details Date Type Department Care Team (Late st Contact Info) Description 03/05/2023 Refill [facility] Medicine [facility] #2 [place] [address] Pili Elkins APRN, MANAGER WOUND CARE #[address] [address] Medication Refill Social History Tobacco [...] on 10/19/2022 by Justen Gale MD R CHANGES RECORDS CLERK documented in this encounter Plan of Treatment Upcoming Encounters Date Type Department Care Team (Late st Contact Info) Description 08/07/2024 8:30 AM CDT Office Visit [facility] Medical [facility] - Family Medicine - [place] #2 [place] [address] Angelito Alegria APRN, NETTA #[address] [address] 09/18/2024 2:45 PM CDT Office Visit [facility] - Endocrinology - [place] #2 [place] [address] Annel Rod MD #[address] [address] documented as of this encounter Visit Diagnoses Diagnosis Essential hypertension Unspecified essential hypertension documented in this encounter Additional Health Concerns Infection Onset Date Last Indicated Resolved Time COVID - 19 08/01/2024 08/01/2024 08/01/2024 3:20 PM CDT Assessment Noted Time PHQ-9 Depression Total Score: 8 01/18/20 23 2:24 PM CDT documented as of this encounter Care Teams Concrete Tile Machine Operator Relationship Specialty Start Date End Date Justen Gale MD #2 [facility] [address] [place] [address] PCP - General Family Medicine 10/17/17 David Roberts APRN, NETTA #2 [place] [address] Nurse Practitioner Advanced Practice Nurse 01/31/22 Annel Rod MD #2 [facility] [address] [place] [address] Consulting Physician Endocrinology 07/01/22 documented as of this encounter
--- OUTSIDE RECORDS SUMMARY | 2024-08-05 17:47 | XMS_ITS | Encounter Summary ---
Author Organization [facility] Address [address] [place] [address] Phone Care Team Providers Care Automated Access Systems Technician Name Role Phone Justen Gale MD Primary Care Provider [phone] David Roberts APRN, SIGNAL MAINTENANCE TECHNICIAN Unavailable [phone] Annel Rod MD Unavailable Reason for Visit * Reason Comments Medication Refill Encounter Details Date Type Department Care Team (Late st Contact Info) Description 07/06/2023 Refill [facility] - Family [facility] #2 [place] [address] Justen Gale MD #[address] [address] Medication Refill Social History Tobacco Use Types [...] Dept 06/27/23 Office Visit Justen Gale MD [facility] [place] 01/17/23 Office Visit Catrina Quiñonez MD [facility] [place] Showing recent visits within past [...] Description 08/07/2024 8:30 AM CDT [facility] Visit [facility] - Family Medicine - [place] #2 [place] [address] Angelito Alegria APRN, SIGNAL MAINTENANCE TECHNICIAN #[address] [address] 09/18/2024 2:45 PM CDT Office Visit [facility] - Endocrinology - [place] #[address] [place] [address] Annel Rod MD #[address] [facility] [address] [place] [address] documented as of this encounter Visit Diagnoses Not on filedocumented in this encounter Additional Health Concerns Infection Onset Date Last Indicated Resolved Time COVID - 19 08/01/2024 08/01/2024 08/01/2024 3:20 PM CDT Assessment Noted Time PHQ-9 Depression Total Score: 8 01/18/20 2:24 PM CDT documented as of this encounter Care Teams Automated Access Systems Technician Relationship Specialty Start Date End Date Justen Gale MD #[address] [address] PCP - General Family Medicine 10/17/17 David Roberts, HYDRAULIC PLUMBER HELPER, SIGNAL MAINTENANCE TECHNICIAN #2 [facility] [place] [address] Nurse Practitioner Advanced Practice Nurse 01/31/22 Annel Rod MD #[address] [address] Consulting Physician Endocrinology 07/01/22 documented as of this encounter
--- OUTSIDE RECORDS SUMMARY | 2024-08-05 17:47 | XMS_ITS | Encounter Summary ---
Author Organization [facility] Address [address] [place] [address] Phone Care Team Providers Care Manager Of Hospital Name Role Phone Justen Gale MD Primary Care Provider [phone] David Roberts APRN, REMOTE CODERS Unavailable [phone] Annel Rod MD Unavailable Reason for Visit * Reason Comments Medication Refill Encounter Details Date Type Department Care Team (Late st Contact Info) Description 02/07/2023 Refill [facility] - Family Medicine [facility] #2 [place] [address] Pili Elkins APRN, REMOTE CODERS #[address] [address] Medication Refill Social History Tobacco [...] Description 08/07/2024 8:30 AM CDT Office Visit [facility] - Family Medicine - [place] #2 [place] [address] Angelito Alegria APRN, NETTA #2 [facility] [address] [place] [address] 09/18/2024 2:45 PM CDT Office Visit [facility] - Endocrinology - [place] #2 [place] [address] Annel Rod MD #2 [facility] [address] [place] [address] documented as of this encounter Visit Diagnoses Diagnosis Essential hypertension Unspecified essential hypertension documented in this encounter Additional Health Concerns Infection Onset Date Last Indicated Resolved Time COVID - 19 08/01/2024 08/01/2024 08/01/2024 3:20 PM CDT Assessment Noted Time PHQ-9 Depression Total Score: 8 01/18/20 2:24 PM CDT documented as of this encounter Care Teams Manager Of Hospital Relationship Specialty Start Date End Date Justen Gale MD #2 [facility] [address] [place] [address] PCP - General Family Medicine 10/17/17 David Roberts, GOLD WHEEL BLOCKER AND POLISHER, REMOTE CODERS #2 [place] [address] Nurse Practitioner Advanced Practice Nurse 01/31/22 Annel Rod MD #2 [facility] [address] [place] [address] Consulting Physician Endocrinology 07/01/22 documented as of this encounter
--- OUTSIDE RECORDS SUMMARY | 2024-08-05 17:47 | XMS_ITS | Encounter Summary ---
Author Organization [facility] Address [address] [place] [address] Phone Care Team Providers Care Executive Sous Chef Name Role Phone Justen Gale MD Primary Care Provider [phone] David Roberts APRN, HANDS PARTER Unavailable [phone] Annel Rod MD Unavailable Reason for Visit * Reason Comments Medication Refill Encounter Details Date Type Department Care Team (Late st Contact Info) Description 08/30/2022 Refill [facility] - Family [facility] #2 [place] [address] Justen Gale MD #[address] [address] Medication Refill Social History Tobacco Use Types [...] Office Visit Pili Elkins APRN, NETTA [facility] [place] 05/02/22 Office Visit [facility] [place] 03/03/22 Office Visit Pili Elkins APRN, NETTA [facility] [place] 01/03/22 Office Visit Dannielle Berg PAC [facility] [place] 12/07/21 Office Visit Pili Elkins APRN, NETTA [facility] [place] 11/09/21 Office Visit Pili Elkins APRN, NETTA [facility] [place] 10/08/21 Office Visit Angelito Alegria APRN, NETTA [facility] [place] 08/30/21 [facility] recent visits within past 365 days and meeting all other requirements Future Appointments No visits were found meeting these conditions. Showing future appointments within next 90 days and meeting all other requirements documented in this encounter Plan of Treatment Upcoming Encounters Date Type Department Care Team (Late st Contact Info) Description 08/07/2024 8:30 AM CDT [facility] Visit [facility] - Family Medicine [facility] #[address] [place] [address] Angelito Alegria APRN, HANDS PARTER #[address] [address] 09/18/2024 2:45 PM CDT Office Visit [facility] Endocrinology - [place] #2 [place] [address] Annel Rod MD #[address] [address] documented as of this encounter Visit Diagnoses Not on filedocumented in this encounter Additional Health Concerns Infection Onset Date Last Indicated Resolved Time COVID - 19 08/01/2024 08/01/2024 08/01/2024 3:20 PM CDT Assessment Noted Time PHQ-9 Depression Total Score: 0 07/21/19 3:00 PM CDT documented as of this encounter Care Teams Executive Sous Chef Relationship Specialty Start Date End Date Justen Gale MD #[address] [address] PCP - General Family Medicine 10/17/17 David Roberts APRN, HANDS PARTER #2 [place] [address] Nurse Practitioner Advanced Practice Nurse 01/31/22 Annel Rod MD #[address] [address] Consulting Physician Endocrinology 07/01/22 documented as of this encounter
--- OUTSIDE RECORDS SUMMARY | 2024-08-05 17:47 | XMS_ITS | Encounter Summary ---
Author Organization [facility] Address [address] [place] [address] Phone Care Team Providers Care Edge Beader Name Role Phone Liu Jerez MD Unavailable [phone] Albert Corbin MD Unavailable Justen Gale MD Primary Care Provider Khris Arthur MD Unavailable [phone] Ko Melendez MD Unavailable John Paul Moyer MD Unavailable Annel Rod MD Unavailable Anali MARSHALL MD, Carlos M. Unavailable [phone] Encounter Details Date Type Department Care Team [...] on file Legal Sex Female 12:24 AM SOLAR SALES ESTIMATOR Gender Identity Not on file Sexual Orientation [...] COVID: Recovered 02/10/2022 02/10/2022 06/10/2022 3:05 AM SOLAR SALES ESTIMATOR Exposure, COVID-19 Comment:Added automatically based on COVID19 lab answers indicating exposure risk 02/11/2022 02/11/2022 02/15/2022 9:06 AM C DT COVID: Suspected 05/14/2022 05/14/2022 05/14/2022 10:41 AM SOLAR SALES ESTIMATOR COVID: Suspected 06/07/2022 06/07/2022 06/07/2022 12:28 PM SOLAR SALES ESTIMATOR COVID: Suspected 06/21/2022 06/21/2022 06/21/2022 2:12 AM SOLAR SALES ESTIMATOR COVID: Suspected 10/05/2022 10/05/2022 10/05/2022 7:40 PM CDT COVID: Suspected 01/04/2024 01/04/2024 01/04/2024 10:30 PM CDT COVID: Suspected 02/14/2024 02/14/2024 02/15/2024 12:36 AM CDT COVID: Suspected 07/01/2024 07/01/2024 07/01/2024 2:53 PM CDT COVID: Suspected 07/01/2024 07/01/2024 07/02/2024 3:05 AM CDT documented as of this encounter Care Teams Edge Beader Relationship Specialty Start Date End Date Justen Gale MD 2 [facility] [address] [place] [address] PCP - General 10/09/17 Liu Jerez MD Consulting Physician Gastroenterology 07/28/17 [place] [address] [facility] [address] [place] [address] Consulting Physician Pulmonary Disease 08/03/17 [place] [address] [place] [address] [place] [address] Medical Oncologist/Cooler Servicer Medical Oncology 10/23/17 [place] [address] [address] Surgeon Orthopedic Surgery 10/23/17 [place] [address] [facility] [address] [place] [address] Consulting Physician Pain Management 10/23/17 [place] [address] [address] Referring Physician General Surgery 01/26/18 [place] [address] [facility] [address] [place] [address] Consulting Physician Neurology 01/26/18 documented as of this encounter
--- OUTSIDE RECORDS SUMMARY | 2024-08-05 17:47 | XMS_ITS | Encounter Summary ---
Author Organization [facility] Address [address] [place] [address] Phone Care Team Providers Care International Student Advisor Name Role Phone Justen Gale MD Primary Care Provider [phone] David Roberts APRN, SCIENTIFIC SOFTWARE DEVELOPER Unavailable [phone] Annel Rod MD Unavailable Reason for Visit * Reason Comments Medication Refill Encounter Details Date Type Department Care Team (Late st Contact Info) Description 10/24/2022 Refill [facility] - Family Medicine [facility] #2 [place] [address] Pili Elkins APRN, SCIENTIFIC SOFTWARE DEVELOPER #[address] [address] Medication Refill Social History Tobacco [...] 08/07/2024 8:30 AM CDT Office Visit [facility] - Family Medicine [facility] #2 [place] [address] Angelito Alegria, SWATCH CUTTER, SCIENTIFIC SOFTWARE DEVELOPER #[address] [address] 09/18/2024 2:45 PM CDT Office Visit [facility] - Endocrinology [facility] #2 [place] [address] Annel Rod MD #[address] [address] documented as of this encounter Visit Diagnoses Diagnosis Essential hypertension Unspecified essential hypertension documented in this encounter Additional Health Concerns Infection Onset Date Last Indicated Resolved Time COVID - 19 08/01/2024 08/01/2024 08/01/2024 3:20 PM CDT Assessment Noted Time PHQ-9 Depression Total Score: 0 09/17/19 23 11:00 AM CDT documented as of this encounter Care Teams International Student Advisor Relationship Specialty Start Date End Date Justen Gale MD #[address] [address] PCP - General Family Medicine 10/17/17 David Roberts APRN, SCIENTIFIC SOFTWARE DEVELOPER #2 [place] [address] Nurse Practitioner Advanced Practice Nurse 01/31/22 Annel Rod MD #2 [place] [address] Consulting Physician Endocrinology 07/01/22 documented as of this encounter
--- OUTSIDE RECORDS SUMMARY | 2024-08-05 17:47 | XMS_ITS | Encounter Summary ---
Author Organization [facility] Address [address] [place] [address] Phone Care Team Providers Care Wall Cleaner Name Role Phone Justen Gale MD Primary Care Provider [phone] David Roberts APRN, ELECTRONIC PREPRESS SYSTEM OPERATOR Unavailable [phone] Annel Rod MD Unavailable Reason for Visit * Reason Comments Medication Refill Encounter Details Date Type Department Care Team (Late st Contact Info) Description 03/02/2023 Refill [facility] #2 [place] [id number] Justen Gale MD #[address] [address] Medication Refill Social History Tobacco Use Types [...] Tamika Villarreal RN - 03/02/2023 8:51 AM CARE TECHNICIAN Medication failed the protocol, provider to [...] Dept 01/17/23 Office Visit Catrina Quiñonez MD [facility] 09/16/22 Office Visit Pili Elkins APRN, CNP [facility] [place] 07/05/22 Office Visit Pili Elkins APRN, CNP [facility] [place] 05/02/22 [facility] 03/[facility]/22 Office Visit Pili Elkins APRN, NETTA [facility] Showing recent visits within past 365 days and meeting all other requirements Future Appointments No visits were found meeting these conditions. Showing future appointments within next 90 days and meeting all other requirements TECHNICIAN documented in this encounter Plan of Treatment Upcoming Encounters Date Type Department Care Team (Late st Contact Info) Description 08/07/2024 8:30 AM CDT Office Visit [facility] - Family Medicine - [place] #2 [place] [address] Angelito Alegria APRN, ELECTRONIC PREPRESS SYSTEM OPERATOR #[address] [address] 09/18/2024 2:45 PM CDT Office Visit [facility] - Endocrinology - [place] #[address] [place] [address] Annel Rod MD [address] [address] documented as of this encounter Visit Diagnoses Not on filedocumented in this encounter Additional Health Concerns Infection Onset Date Last Indicated Resolved Time COVID - 19 08/01/2024 08/01/2024 08/01/2024 3:20 PM CDT Assessment Noted Time PHQ-9 Depression Total Score: 8 01/18/20 23 2:24 PM CDT documented as of this encounter Care Teams Wall Cleaner Relationship Specialty Start Date End Date Justen Gale MD #[address] [address] PCP - General Family Medicine 10/17/17 David Roberts, CORN SHELLER, ELECTRONIC PREPRESS SYSTEM OPERATOR #2 [place] [address] Nurse Practitioner Advanced Practice Nurse 01/31/22 Annel Rod MD #[address] [address] Consulting Physician Endocrinology 07/01/22 documented as of this encounter
--- OUTSIDE RECORDS SUMMARY | 2024-08-05 17:47 | XMS_ITS | Encounter Summary ---
Author Organization [facility] Address [address] [place] [address] Phone Care Team Providers Care Multi Site Leasing Consultant Name Role Phone Justen Gale MD Primary Care Provider [phone] David Roberts APRN, BOXING MACHINE OPERATOR Unavailable [phone] Annel Rod MD Unavailable Reason for Visit * Reason Comments Medication Refill Encounter Details Date Type Department Care Team (Late st Contact Info) Description 04/13/2023 Refill [facility] Endocrinology - [place] #2 [place] [address] Annel Rod MD #[address] [address] Medication Refill Social History [...] Jennifer Wang, RN - 04/14/2023 10:00 AM WAFER PRODUCTION LEAD WORKER Requested Prescriptions Pending Prescriptions Disp Refills ??? Continuous Blood Gluc Sensor (FreeStyle Eileen 2 Sensor) Misc [Pharmacy Med Name: FREESTYLE EILEEN 2 SENSOR] 6 Each 1 Sig: APPLY 1 SENSOR AND WEAR FOR 14 DAYS TO CHECK BLOOD SUGAR Next appt: 05/30/2023 R PRODUCTION LEAD WORKER documented in this encounter Plan of Treatment Upcoming Encounters Date Type Department Care Team (Late st Contact Info) Description 08/07/2024 8:30 AM CDT Office Visit [facility] Group - Family Medicine - [place] #2 [place] [address] Angelito Alegria APRN, BOXING MACHINE OPERATOR #2 [facility] [address] [place] [address] 09/18/2024 2:45 PM CDT Office Visit [facility] Group - Endocrinology - [place] #2 [place] [address] Annel Rod MD #2 [facility] [address] [place] [address] documented as of this encounter Visit Diagnoses Not on filedocumented in this encounter Additional Health Concerns Infection Onset Date Last Indicated Resolved Time COVID - 19 08/01/2024 08/01/2024 08/01/2024 3:20 PM CDT Assessment Noted Time PHQ-9 Depression Total Score: 8 01/18/20 23 2:24 PM CDT documented as of this encounter Care Teams Multi Site Leasing Consultant Relationship Specialty Start Date End Date Justen Gale MD #2 [facility] [address] [place] [address] PCP - General Family Medicine 10/17/17 David Roberts APRN, NETTA #2 [place] [address] Nurse Practitioner Advanced Practice Nurse 01/31/22 Annle Rod MD #2 [facility] [address] [place] [phone] Consulting Physician Endocrinology 07/01/22 documented as of this encounter
--- OUTSIDE RECORDS SUMMARY | 2024-08-05 17:47 | XMS_ITS | Encounter Summary ---
Author Organization [facility] Address [address] [place] [address] Phone Care Team Providers Care Extruding Press Adjuster Name Role Phone Justen Gale MD Primary Care Provider [phone] David Roberts APRN, PROJECTOR OPERATOR Unavailable [phone] Annel Rod MD Unavailable Reason for Visit * Reason Comments Medication Refill Encounter Details Date Type Department Care Team (Late st Contact Info) Description 07/12/2022 Refill [facility] - Family Medicine [facility] #2 [place] [phone] Justen Gale MD #[address] [address] Medication Refill Social History Tobacco Use Types [...] 07/05/22 Office Visit Pili Elkins APRN, NETTA [facility] [place] 05/02/22 Office Visit Justen Gale MD [facility] [place] 03/03/22 Office Visit Pili Elkins APRN, PROJECTOR OPERATOR [facility] [place] 01/03/22 Office Visit Dannielle Berg PAC [facility] [place] 12/07/21 Office Visit Pili Elkins APRN, NETTA [facility] [place] 11/09/21 Office Visit Pili Elkins APRN, NETTA [facility] [place] 10/08/21 Office Visit Angelito Alegria APRN, NETTA [facility] [place] 08/30/21 Office Visit Justen [facility]ale MD [facility] Showing recent visits within past 365 days and meeting all other requirements Future Appointments No visits were found meeting these conditions. Showing future appointments within next 90 days and meeting all other requirements documented in this encounter Plan of Treatment Upcoming Encounters Date Type Department Care Team (Late st Contact Info) Description 08/07/2024 8:30 AM CDT Office Visit [facility] Family Medicine [facility] #2 [place] [address] Angelito Alegria APRN, PROJECTOR OPERATOR #[address] [address] 09/18/2024 2:45 PM CDT Office Visit [facility] Endocrinology [facility] #2 [place] [phone] Annel Rod MD #[address] [address] documented as of this encounter Visit Diagnoses Not on filedocumented in this encounter Additional Health Concerns Infection Onset Date Last Indicated Resolved Time COVID - 19 08/01/2024 08/01/2024 08/01/2024 3:20 PM CDT Assessment Noted Time PHQ-9 Depression Total Score: 0 07/21/19 21 3:00 PM CDT documented as of this encounter Care Teams Extruding Press Adjuster Relationship Specialty Start Date End Date Justen Gale MD #[address] [address] PCP - General Family Medicine 10/17/17 David Roberts APRN, PROJECTOR OPERATOR #2 [place] [address] Nurse Practitioner Advanced Practice Nurse 01/31/22 Annel Rod MD #[address] [address] (work) Consulting Physician Endocrinology 07/01/22 documented as of this encounter
--- OUTSIDE RECORDS SUMMARY | 2024-08-05 17:47 | XMS_ITS | Encounter Summary ---
Author Organization [facility] Address [address] [place] [address] Phone Care Team Providers Care Leather Whitener Name Role Phone Justen Gale MD Primary Care Provider [phone] David Roberts APRN, BOLTER HELPER Unavailable [phone] Annel Rod MD Unavailable Reason for Visit * Reason Comments Medication Refill Encounter Details Date Type Department Care Team (Late st Contact Info) Description 07/14/2022 Refill [facility] Family Medicine [facility] #2 [place] [phone] Justne Gale MD #[address] [address] Medication Refill Social History Tobacco Use Types [...] Description 08/07/2024 8:30 AM CDT Office Visit [facility] Medical Group - Family Medicine - [place] #2 [place] [address] Angelito Alegria APRN, BOLTER HELPER #2 [facility] [address] [place] [address] 09/18/2024 2:45 PM CDT Office Visit [facility] Medical Group - Endocrinology - [place] #2 [place] [address] Annel Rod MD #2 [facility] [address] [place] [address] documented as of this encounter Visit Diagnoses Not on filedocumented in this encounter Additional Health Concerns Infection Onset Date Last Indicated Resolved Time COVID - 19 08/01/2024 08/01/2024 08/01/2024 3:20 PM CDT Assessment Noted Time PHQ-9 Depression Total Score: 0 07/21/19 21 3:00 PM CDT documented as of this encounter Care Teams Leather Whitener Relationship Specialty Start Date End Date Justen Gale MD #2 [facility] [address] [place] [address] PCP - General Family Medicine 10/17/17 David Roberts, PRIMARY SPECIAL EDUCATION TEACHER, BOLTER HELPER #2 [place] [address] Nurse Practitioner Advanced Practice Nurse 01/31/22 Annel Rod MD #2 [facility] [address] [place] [address] Consulting Physician Endocrinology 07/01/22 documented as of this encounter
== END 2024-08-05 17:11 | disposition home or self-care (01) ==
PROVIDERS: Physician Assistant; Emergency Provider Emergency Medicine; PCP Internal Medicine
DX: M33.20 Polymyositis, organ involvement unspecified (principal); I50.9 Heart failure, unspecified; E11.42 Type 2 diabetes mellitus with diabetic polyneuropathy; E66.01 Morbid (severe) obesity due to excess calories; Z68.43 Body mass index [BMI] 50.0-59.9, adult; G47.33 Obstructive sleep apnea (adult) (pediatric); G25.81 Restless legs syndrome; K58.9 Irritable bowel syndrome, unspecified; N32.81 Overactive bladder; F41.9 Anxiety disorder, unspecified; F32.A Depression, unspecified; Z96.651 Presence of right artificial knee joint; Z86.718 Personal history of other venous thrombosis and embolism; Z87.891 Personal history of nicotine dependence; Z86.711 Personal history of pulmonary embolism; Z85.3 Personal history of malignant neoplasm of breast; Z87.442 Personal history of urinary calculi; Z86.16 Personal history of COVID-19; Z90.49 Acquired absence of other specified parts of digestive tract; Z90.13 Acquired absence of bilateral breasts and nipples; Z90.721 Acquired absence of ovaries, unilateral; Z79.4 Long term (current) use of insulin; Z79.01 Long term (current) use of anticoagulants; Z79.899 Other long term (current) drug therapy
CPT/HCPCS: 36415; 80053; 83735; 85025; 85652; 86140; 96372; 99283; A9270; J1171

== ENCOUNTER 2024-08-07 14:51 | Emergency (ER) | payer MEDICARE, SELFPAY ==
--- NOTE | ~2024-08-07 | CT_ITS ---
EXAMINATION: CTA chest PE protocol DATE: 08/07/2024 16:28 INDICATION: Dyspnea and reported hemoptysis TECHNIQUE: Computed tomography (CT) pulmonary angiogram of the chest was performed with 100 mL Omnipa que-350 intravenous contrast. Additional 3D reconstructions utilizing coronal maximum intensity proje ction (MIP) were performed. Automated exposure control and iterative reconstruction technique were em ployed. The dose-length product was 987.49 mGy-cm. COMPARISON: 07/22/2024 FINDINGS: No pulmonary embolism. No pneumonia, pulmonary edema, pleural effusion or pneumothorax. Mild discoid atelectasis at the basilar right lower lobe. Heart size is normal. No pericardial effusion. Thoracic aorta is normal in caliber with no dissection. Stable appearance since 12/28/2019 in a of a multinodula r goiter with scattered coarse calcifications. No pathologically enlarged thoracic lymphadenopathy. C holecystectomy clips the gallbladder fossa. 1.8 cm right renal cyst. Mild thoracic dextrocurvature wi th severe spondylosis. T7 and T8 laminectomies with spinal stimulator lead in the posterior central c anal at this level. IMPRESSION: 1. No pulmonary embolism or other acute cardiopulmonary disease. 2. Stable appearance since 2019 in a multinodular goiter. Reviewed, dictated and finalized at location A.
--- NOTE | ~2024-08-07 | XR_ITS ---
XR chest 1V portable Ordering provider: Riri Linda MD History: 69 years Female with . SOB, weakness . Comparison: July 21, 2024 FINDINGS: MEDIASTINUM: The cardiac silhouette is slightly enlarged. Congestive magali. LUNGS: No effusions or pneumothorax. Bilateral interstitial thickening with prominent markings bilate rally. Opacification in the lung bases seen suggestive of atelectasis versus pneumonia. OTHER: No free air under the diaphragm. IMPRESSION: Cardiomegaly with cardiac decompensation and pulmonary edema. Bibasilar atelectasis versus pneumonia. Reviewed, dictated and finalized at location A.
[2024-08-07 14:52] VITALS: BP 165/85; PULSE 83; RESP 14; TEMP 36.9; O2SAT 99
--- NOTE | 2024-08-07 14:59 | ECG_ITS ---
Test Date: 2024-08-07 14:59:17 Measurements Intervals [place] Rate: 83 P: 42 [place]: 137 QRS: 23 QRSD: 90 T: 61 QT: 365 QTc: 429 Interpretive Statements SINUS RHYTHM POSSIBLE LEFT ATRIAL ENLARGEMENT BORDERLINE ECG Compared to ECG 07/21/2024 22:01:05 No significant changes Electronically Signed On 08-07-2024 15:02:14 CDT by Jonatan Parra D.O.
[2024-08-07 15:06] VITALS: PULSE 80; O2SAT 99
[2024-08-07 15:13] LABS: Basophils Absolute Auto 0.1 K/mm3 (0.0-0.1); Basophils Percent Auto 0.5 % (0.2-1.2); Eosinophils Absolute Auto 0.2 K/mm3 (0-0.3); Eosinophils Percent Auto 1.7 % (0-4.4); Hematocrit 42.5 % (37.0-47.0); Hemoglobin 13.2 g/dL (12.0-15.0); Immature Granulocyte Absolute 0.03 K/mm3 (0.00-0.031); Immature Granulocyte Percent A 0.3 % (0-0.5); Lymphocytes Absolute Auto 2.19 K/mm3 (0.9-3.2); Lymphocytes Percent Auto 20.1 % (18.3-44.2); Mean Corpuscular HGB Conc 31.1 g/dl (32-36); Mean Corpuscular Volume 93.4 fl (80-100); Mean Platelet Volume 9.6 fl (7.4-10.4); Monocytes Absolute Auto 0.9 K/mm3 (0.1-0.6); Monocytes Percent Auto 8.1 % (2.6-8.5); Neutrophils Absolute Auto 7.6 K/mm3 (1.3-6.7); Neutrophils Percent Auto 69.3 % (45.5-73.1); Platelet Count Result 249 k/mm3 (150-375); Red Blood Count 4.55 M/mm3 (4.2-5.4); Red Cell Distribution Width 13.1 % (11.5-14.5); White Blood Count 10.9 K/mm3 (4.5-10.0)
[2024-08-07 15:26] LABS: Alanine Aminotransferase 26 U/L (6-35); Albumin Level 4.1 g/dL (3.5-5.1); Alkaline Phosphatase 70 U/L (38-126); Anion Gap 8 mmol/L (4-12); Aspartate Amino Transferase 27 U/L (14-36); Bilirubin,Total 0.9 mg/dL (0.2-1.3); Blood Urea Nitrogen 23 mg/dL (7-17); Calcium 9.5 mg/dL (8.4-10.2); Carbon Dioxide 29 mmol/L (22-30); Chloride 99 mmol/L (98-107); Estimated CRCL calculation 86 ml/min; Estimated Glomerular Filt Rate > 60; Glucose 322 mg/dL (65-110); Potassium 4.2 mmol/L (3.4-5.0); Sodium 136 mmol/L (137-145)
--- NOTE | 2024-08-07 15:26 | ED_ITS ---
HPI - SOB/Dyspnea General Chief Complaint: Shortness of Breath/Dyspnea Stated Complaint: SOB Time Seen by Provider: 08/07/24 15:13 History of Present Illness HPI Narrative: 70-year-old female with history of type 2 diabetes, hypothyroidism, obesity, DM, PE and DVT on Xarelto presents to the emergency department via EMS from home for he shortness of breath. Patient is reporting pain to her thighs, hips, shoulders, arms, upper back for several weeks. She was diagnosed by her PCP with polymyositis and is on her 3rd day of prednisone. She states she has had intermittent dyspnea for the past 3 weeks as well, however today after going her PCPs office her shortness of breath worsened which prompted her to come to the ED. Reports dyspnea is worse with exertion. She states 4 days ago she had an episode of coughing with blood tinged sputum but has not had any coughing or blood tinged sputum since. She states that she was recently treated with azithromycin for pneumonia but took 1 dose and discontinued the medication after she developed hives. She has not follow-up with her PCP regarding this. She denies fever, chest pain, abdominal pain. She is endorsing some lower extremity edema and history of CHF. She states her PCP is planning to have her scheduled for an outpatient echocardiogram soon. The patient is reporting pain diffusely from her polymyositis and generalized weakness. She denies abdominal pain, dysuria or hematuria. Is endorsing urinary frequency but states she has an overactive bladder. Related Data Home Medications ?Medication ?Instructions ?Recorded ?Confirmed ?Last Taken ?Type exemestane 25 mg tablet 25 mg PO HS 01/06/20 06/20/24 12/04/23 22:00 History insulin glargine 100 unit/mL (3 32 unit subcut QAM 01/06/20 06/20/24 12/04/23 11:00 History mL) subcutaneous pen (Lantus Solostar U-100 Insulin) ropinirole 5 mg tablet 5 mg PO HS 01/06/20 06/20/24 12/04/23 22:00 History insulin lispro 100 unit/mL 28 unit subcut TID 03/19/22 06/20/24 Unknown History subcutaneous pen (Humalog KwikPen (U-100) Insulin) oxybutynin chloride 15 mg 15 mg PO DAILY 11/06/22 06/20/2424 11:00 History tablet,extended release 24 hr gabapentin 300 mg capsule 300 mg PO TID 06/25/23 06/20/24 12/04/23 22:00 History Allergies Allergy/AdvReac Type Severity Reaction Status Date / Time ceftriaxone Allergy Severe SOB Verified 08/07/24 15:05 cephalexin Allergy Severe Difficulty Verified 08/07/24 15:05 Breathing Cephalosporins Allergy Severe Difficulty Verified 08/07/24 15:05 Breathing lorazepam Allergy Severe Swelling Verified 08/07/24 15:05 trazodone Allergy Severe Swelling Verified 08/07/24 15:05 of Lip/Tongue/Throat metoclopramide Allergy Intermediate Other Verified 08/07/24 15:05 chlorhexidine Allergy Mild BLISTERING Verified 08/07/24 15:05 levofloxacin Allergy Mild Hives / Verified 08/07/24 15:05 Red Face ketorolac Allergy Itching Verified 08/07/24 15:05 latex Allergy Rash Verified 08/07/24 15:05 meropenem Allergy Rash Verified 08/07/24 15:05 nitrofurantoin Allergy Itching Verified 08/07/24 15:05 sulfamethoxazole (From Allergy Itching Verified 08/07/24 15:05 Sulfamethoxazole-Trimethoprim) trimethoprim (From Allergy Itching Verified 08/07/24 15:05 Sulfamethoxazole-Trimethoprim) oxycodone AdvReac Mild Vomiting Verified 08/07/24 15:05 amlodipine AdvReac Swelling Verified 08/07/24 15:05 lisinopril AdvReac Swelling Verified 08/07/24 15:05 pregabalin AdvReac Swelling Verified 08/07/24 15:05 reslizumab AdvReac Unknown Verified 08/07/24 15:05 Review of Systems 2 Review of Systems: All systems reviewed & are unremarkable except as noted in HPI and below PMFSH Past Medical History Medical History Chronic anticoagulation Overactive bladder Type 2 diabetes mellitus Deep venous thrombosis Irritable bowel syndrome Restless leg syndrome Obstructive sleep apnea on CPAP Congestive heart failure Chronic back pain COVID-19 Collagenous colitis Morbid obesity Breast cancer Depression Anxiety Peripheral neuropathy Kidney stone Pulmonary embolism positive for coagulation workup Multiple thyroid nodules Surgical History Surgical History History of umbilical hernia repair History of colonoscopy Status post insertion of spinal cord stimulator History of cystoscopy History of ureter stent History of cholecystectomy History of bilateral mastectomy History of esophagogastroduodenoscopy (EGD) History of right oophorectomy History of total right knee replacement History of cardiac catheterization Reportedly negative for coronary artery disease. Family History Family History Mother Diabetes mellitus Acute myocardial infarction Cerebrovascular accident Hypertension Congestive heart failure Father Prostate carcinoma Sibling Breast cancer Acute myocardial infarction Chronic obstructive pulmonary disease Social History Social History Social History: Surrogate medical decision maker: Jimmie Marques, spouse. Code status: Full code. Smoking packs per day: 0 Smoking cigarettes per day: 0.0 Years smoked: 2 Smoking pack-years: 0.00 Smoking status: Former smoker Second hand tobacco smoke exposure: Yes Alcohol intake: never Substance use: never Substance use type: does not use Do You Feel Safe in your Home?: Yes Lack of Transportation: No Lack of Food: Never True Current Housing: I Have Housing Concerned About Future Housing: No Difficulty Paying Gas/Electric Bills: No Difficulty Paying for Meds: No Currently Unemployed: No Education: Decline to Answer Difficulty w/ Childcare or Family Care: No Living arrangements: with family Additional occupation/education comments: Disabled. Spiritual care concerns: No Exam 2 Narrative: GENERAL: Anxious-appearing, well-nourished, and in no acute distress. HEAD: Normocephalic, atraumatic. EYES: EOMI. ENT: Nares clear, no rhinorrhea or epistaxis. Mucous membranes moist. NECK: Supple. CHEST: Clear to auscultation. No respiratory distress. Speaking in full sentences HEART: Regular rate and rhythm. No murmur heard. Normal peripheral pulses. ABDOMEN: Soft, nontender, nondistended, normal active bowel sounds. EXTREMITIES: 1+ pitting edema to bilateral lower extremities SKIN: Warm, dry, no rash. NEURO: No focal deficits. Alert and oriented x3 Course Vital Signs Vital signs: Vital Signs Temperature 98.5 F 08/07/24 14:52 Pulse Rate 83 08/07/24 14:52 Respiratory Rate 14 08/07/24 14:52 Blood Pressure 165/85 H 08/07/24 14:52 Pulse Oximetry 99 08/07/24 14:52 Oxygen Delivery Room Air 08/07/24 14:52 Temperature 98.5 F 08/07/24 14:52 Pulse Rate 80 08/07/24 15:06 Respiratory Rate 14 08/07/24 14:52 Blood Pressure 165/85 H 08/07/24 14:52 Pulse Oximetry 99 08/07/24 15:06 Oxygen Delivery Room Air 08/07/24 15:06 MDM - SOB/Dyspnea MDM Narrative Medical decision making narrative: 69-year-old female with history of type 2 diabetes, PE and DVT on Xarelto, hypothyroidism presents to the emergency department for shortness of breath intermittently for the past 3 weeks, worsening today. She is reporting diffuse pain to her arms, shoulders, hips, thighs. Patient recently diagnosed with polymyositis by her PCP and is on her 3rd day of prednisone. Triage vitals with elevated blood pressure 165/85, otherwise unremarkable. Patient is anxious appearing on exam, lung sounds are clear and she is speaking in full sentences. Exam is notable for the above. Lab work with mild nonspecific leukocytosis of 10.9, no bandemia. Chemistries are remarkable for hyperglycemia of 322 with a normal bicarb and anion gap. Magnesium is mildly low 1.5 which is been intravenously repleted. UA without UTI. Viral swabs are negative. BNP within normal as. Coags within normal limits. EKG shows normal sinus rhythm with rate of 83 ppm, normal IN interval, normal QRS duration, normal QTC, no ischemic changes. Troponin is undetectable. Chest x-ray shows cardiomegaly with cardiac decompensation of pulmonary edema, bibasilar atelectasis versus pneumonia. Patient has no signs or symptoms of pneumonia currently and has not had a cough and several days, she is afebrile. Additionally BNP is within normal limits. CTA chest PE obtained which shows no PE or other acute cardiopulmonary disease, notably no pneumonia, pulmonary edema or pneumothorax, no pericardial effusion. There is stable appearance since 2019 of a multinodular goiter which patient is aware of. Patient was updated on results. She received Tylenol with improvement. Vital signs remained stable and she is in no respiratory distress. She is advised to follow-up with her PCP. Tylenol prescription provided for pain. Discussed return precautions. She is agreeable with the plan verbalized understanding. Discharged in stable condition. Lab Data 08/07/24 15:08 08/07/24 15:08 Labs: Lab Results 08/07/24 08/07/24 08/07/24 Range/Units 15:07 15:08 16:07 WBC 10.9 H (4.5-10.0) K/mm3 RBC 4.55 (4.2-5.4) M/mm3 Hgb 13.2 (12.0-15.0) g/dL Hct 42.5 (37.0-47.0) % MCV 93.4 (80-100) fl MCH 29.0 (26-34) pg MCHC 31.1 L (32-36) g/dl RDW 13.1 (11.5-14.5) % Plt Count 249 (150-375) k/mm3 MPV 9.6 (7.4-10.4) fl Immature Gran % (Auto) 0.3 (0-0.5) % Neut % (Auto) 69.3 (45.5-73.1) % Lymph % (Auto) 20.1 (18.3-44.2) % [place] % (Auto) 8.1 (2.6-8.5) % Eos % (Auto) 1.7 (0-4.4) % Baso % (Auto) 0.5 (0.2-1.2) % Lymph # (Auto) 2.19 (0.9-3.2) K/mm3 [place] # (Auto) 0.9 H (0.1-0.6) K/mm3 Eos # (Auto) 0.2 (0-0.3) K/mm3 Baso # (Auto) 0.1 (0.0-0.1) K/mm3 Abs Immat Gran (auto) 0.03 (0.00-0.031) K/mm3 Absolute Neuts (auto) 7.6 H (1.3-6.7) K/mm3 Absolute Nucleated RBC 0.000 (0.0-0.012) K/mm3 Nucleated RBC % 0.0 (0.0-0.2) % PT 14.5 (11.1-14.7) Seconds INR 1.1 APTT 26.2 (22.3-36.8) Seconds Sodium 136 L (137-145) mmol/L Potassium 4.2 (3.4-5.0) mmol/L Chloride 99 (98-107) mmol/L Carbon Dioxide 29 (22-30) mmol/L Anion Gap 8 (4-12) mmol/L BUN 23 H (7-17) mg/dL Creatinine 0.67 L (0.7-1.0) mg/dL Estim Creat Clear Calc 86 ml/min Estimated GFR > 60 (59 - ) Glucose 322 H (65-110) mg/dL Calcium 9.5 (8.4-10.2) mg/dL Magnesium 1.5 L (1.6-2.3) mg/dL Total Bilirubin 0.9 (0.2-1.3) mg/dL AST 27 (14-36) U/L ALT 26 (6-35) U/L Alkaline Phosphatase 70 (38-126) U/L Troponin I < 0.012 (0.000-0.034) ng/mL NT-Pro-B Natriuret Pep 99 (19.9-100) pg/mL Total Protein 8.0 (6.3-8.2) g/dL Albumin 4.1 (3.5-5.1) g/dL Urine Color Yellow (Yellow) Urine Appearance Clear (Clear) Urine pH 7.0 (5.0-9.0) Ur Specific [place] 1.019 (1.001-1.035) Urine Protein Negative (Negative) mg/dL Urine Glucose (UA) 3+ H (Negative) mg/dL Urine Ketones Negative (Negative) mg/dL Ur Blood (Man) Negative (Negative) Urine Nitrate Negative (Negative) Urine Bilirubin Negative (Negative) Urine Urobilinogen 0.2 (<2.0) mg/dL Leukocyte Esterase Rfl Negative (Negative) PAO/UL Influenza A (RT-PCR) Negative (Negative) Influenza B (RT-PCR) Negative (Negative) RSV (RT-PCR) Negative (Negative) SARS-CoV-2 RNA (RT-PCR) Negative (Negative) Discharge Plan Discharge Clinical Impression: Dyspnea, Multinodular goiter, Hypomagnesemia Patient Disposition: Home Condition: Stable Instructions: Antibiotic Form, Dyspnea (ED), Hypomagnesemia (ED) Additional Instructions: You were evaluated in the emergency department for polymyositis pain, weakness and shortness of breath. Your workup here shows low magnesium which is repleted. You or also found have a multinodular goiter which is unchanged from your prior study in 2020. Please follow-up with your primary care provider regarding today's visit. Return to the emergency department if you develop worsening difficulty breathing, chest pain, fever, or other concerning symptoms. Take Tylenol as needed for pain. Patient Language: Italian Prescriptions: New acetaminophen 500 mg capsule 500 mg PO Q6H PRN (Reason: pain) Qty: 14 0RF No Action gabapentin 300 mg capsule 300 mg PO TID cyclobenzaprine 10 mg tablet 10 mg PO TID PRN (Reason: muscle spasm) Qty: 20 0RF Rx Instructions: no driving or alcohol while taking this medication clindamycin HCl [Cleocin HCl] 300 mg capsule 300 mg PO Q8H 7 Days Qty: 21 0RF methylprednisolone [Medrol (Nam)] 4 mg tablets,dose pack See Rx Instructions .ROUTE .COMPLEX Qty: 21 0RF Rx Instructions: orally per package directions exemestane 25 mg tablet 25 mg PO HS ropinirole 5 mg tablet 5 mg PO HS insulin glargine [Lantus Solostar U-100 Insulin] 100 unit/mL (3 mL) insulin pen 32 unit SUBCUT QAM insulin lispro [Humalog KwikPen Insulin] 100 unit/mL insulin pen 28 unit SUBCUT TID albuterol sulfate 90 mcg/actuation HFA aerosol inhaler 1 inh inhalation QID PRN (Reason: shortness of breath or wheezing) Qty: 6.7 0RF oxybutynin chloride 15 mg tablet extended release 24hr 15 mg PO DAILY acetaminophen 325 mg Tablet 650 mg PO Q6H PRN (Reason: Pain 1-5 or Fever) Qty: 30 0RF Xarelto 20 mg tablet 20 mg PO 1700 Qty: 30 0RF hydrocodone-acetaminophen 10-325 mg tablet 1 tablet PO Q6H PRN (Reason: pain (scale score 7-10)) Qty: 10 0RF Follow-up/Referrals: Shahla,Justen Spicer MD [Primary Care Provider] -
[2024-08-07 15:41] LABS: Magnesium 1.5 mg/dL (1.6-2.3)
[2024-08-07 15:48] LABS: INR 1.1; Prothrombin Time 14.5 Seconds (11.1-14.7)
[2024-08-07 15:49] LABS: Partial Thromboplastin Time 26.2 Seconds (22.3-36.8)
[2024-08-07 15:50] LABS: Influenza A QL RT-PCR Negative (Negative); Influenza B QL RT-PCR Negative (Negative); RSV RNA, RT-PCR Negative (Negative); SARS-CoV-2 RNA PCR Negative (Negative)
[2024-08-07 15:54] LABS: NT Pro B Type Natriuretic Pept 99 pg/mL (19.9-100); Troponin I < 0.012 ng/mL (0.000-0.034)
[2024-08-07 16:14] LABS: Add Urine Microscopic? NO; Appearance Urine Clear (Clear); Bilirubin Urine Negative (Negative); Blood Urine Negative (Negative); Color Urine Yellow (Yellow); Glucose Urine UA 3+ mg/dL (Negative); Ketones Urine Negative (Negative); Leukocyte Esterase Ur Negative LEU/UL (Negative); Nitrate Urine Negative (Negative); Protein Urine Negative (Negative); Specific Grav Ur 1.019 (1.001-1.035); Urobilinogen Urine 0.2 mg/dL (<2.0)
--- OUTSIDE RECORDS SUMMARY | 2024-08-07 16:34 | XMS_ITS ---
Author Organization [facility] Address [address] [place] [id number] Care Team Providers Care Tent Finisher Name Role Phone Liu Jerez MD Unavailable Albert Corbin MD Unavailable Justen Gale MD Primary Care Provider Khris Arthur MD Unavailable [phone] Ko Melendez MD Unavailable John Paul Moyer MD Unavailable Annel Rod MD Unavailable Anali MARSHALL MD, Carlos M. Unavailable Active Problems Problem Noted Date Diagnosed Date Urinary tract infection 05/22/2024 Assessment & Plan (05/26/2024 10:08 AM [employer]): Presenting with urinary symptoms of right [...] 05/22/2024 Assessment & Plan (05/25/2024 7:52 AM [employer] WORKER): Hx of breast cancer c/b DVT/bilateral [...] 05/22/2024 Assessment & Plan (05/22/2024 1:14 PM [employer] WORK[employer]): -long-standing chronic back pain -CT L [...] (urinary tract infection) 2021 long term care administrator (current) use 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 inhibitors 10/17/2019 Thyroid [...] complication, without long-term current use of insulin ([facility]) 10/23/2017 Assessment & Plan (10/23/2017 [...] 10/13/2017 Assessment & Plan (05/22/2024 12:29 PM [employer] WORK[employer]): -Hx stage II, ER positive, HER2 [...] 08/01/2017 Assessment & Plan (05/22/2024 12:33 PM [employer]AF[employer] WORKER): -Hx LUL -Hospital provided CPAP ordered History of DVT (deep vein thrombosis) 08/01/2017 History of pulmonary embolism 08/01/2017 Generalized weakness 07/27/2017 Dyspnea 07/27/2017 Unintentional weight loss 07/27/2017 Acute cystitis without hematuria 07/27/2017 Nausea and vomiting 07/26/2017 Overview (07/28/2017): Added automatically from request for surgery [id number] Pulmonary embolism 08/09/2016 Assessment & Plan (10/23/2017 2:05 AM CDT): On Rivaroxaban Lymphedema of left upper extremity 08/09/2016 Assessment & Plan (05/25/2024 7:53 AM [employer] WORKER): S/p L axillary lymph node dissection [...] syndrome Assessment & Plan (05/22/2024 11:18 AM [employer] WORKER): -continue home Requip 5mg nightly Pain of lower extremity 03/12/2013 Overview (07/29/2016): Leg pain Essential hypertension Assessment & Plan (05/23/2024 10:42 AM [employer] WORKER): -Chart history of HTN but not on meds -BP elevated on admission, likely some pain contributing -Monitor closely once pain under adequate control, discussed following up with PCP for this Chronic anticoagulation Restless leg syndrome 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 Type 2 diabetes mellitus without complication Assessment & Plan (05/24/2024 1:39 PM [employer] WORKER): -Last Ha1c 8.4 in 2023, repeat [...]
--- OUTSIDE RECORDS SUMMARY | 2024-08-07 16:34 | XMS_ITS | Clinical Summary ---
Author Organization [facility] Address [address] [place] [id number] Care Team Providers Care Sales Correspondence Clerk Name Role Phone Liu Jerez MD Unavailable [phone] Albert Corbin MD Unavailable Justen Gale MD Primary Care Provider Khris Arthur MD Unavailable [phone] Ko Melendez MD Unavailable John Paul Moyer MD Unavailable [phone] Annel Rod MD Unavailable Anali MARSHALL MD, [...] 05/22/2024 Assessment & Plan (05/26/2024 10:08 AM HYDROMETEOROLOGY TEACHER): Presenting with urinary symptoms of right [...] 05/22/2024 Assessment & Plan (05/25/2024 7:52 AM HYDROMETEOROLOGY TEACHER): Hx of breast cancer c/b DVT/bilateral [...] 05/22/2024 Assessment & Plan (05/22/2024 1:14 PM HYDROMETEOROLOGY TEACHER): -long-standing chronic back pain -CT L [...] 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 10/17/2019 [...] complication, without long-term current use of insulin ([facility]) 10/23/2017 Assessment & Plan (10/23/2017 [...] 10/13/2017 Assessment & Plan (05/22/2024 12:29 PM HYDROMETEOROLOGY TEACHER): -Hx stage II, ER positive, HER2 [...] 08/01/2017 Assessment & Plan (05/22/2024 12:33 PM HYDROMETEOROLOGY TEACHER): -Hx LUL -Hospital provided CPAP ordered History of DVT (deep vein thrombosis) 08/01/2017 History of pulmonary embolism 08/01/2017 Generalized weakness 07/27/2017 Dyspnea 07/27/2017 Unintentional weight loss 07/27/2017 Acute cystitis without hematuria 07/27/2017 Nausea and vomiting 07/26/2017 Overview (07/28/2017): Added automatically from request for surgery [id number] Pulmonary embolism 08/09/2016 Assessment & Plan (10/23/2017 2:05 AM CDT): On Rivaroxaban Lymphedema of left upper extremity 08/09/2016 Assessment & Plan (05/25/2024 7:53 AM HYDROMETEOROLOGY TEACHER): S/p L axillary lymph node dissection [...] syndrome Assessment & Plan (05/22/2024 11:18 AM HYDROMETEOROLOGY TEACHER): -continue home Requip 5mg nightly Pain of lower extremity 03/12/2013 Overview (07/29/2016): Leg pain Essential hypertension Assessment & Plan (05/23/2024 10:42 AM HYDROMETEOROLOGY TEACHER): -Chart history of HTN but not on meds -BP elevated on admission, likely some pain contributing -Monitor closely once pain under adequate control, discussed following up with PCP for this Chronic anticoagulation Restless leg syndrome 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 Type 2 diabetes mellitus without complication Assessment & Plan (05/24/2024 1:39 PM HYDROMETEOROLOGY TEACHER): -Last Ha1c 8.4 in 2023, repeat [...] CDT - 07/01/2024 10:18 PM CDT Emergency [facility] Emergency Department [facility] [place], [place] [id number] Myalgia (Primary Dx); Viral syndrome Discharge Disposition: Discharge to home or self care 05/30/2024 Orders Only [facility] [address] [facility] Floor [address] [place] [address] Radha Mcgrath RN Lymphedema of left arm (Primary Dx); Malignant neoplasm of upper-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, unspecified estrogen receptor status (HCC); Malignant neoplasm of overlapping sites of left female breast, unspecified estrogen receptor status (HCC); Malignant neoplasm of female breast, unspecified estrogen receptor status, unspecified laterality, unspecified site of breast (HCC) 05/24/2024 Telephone [facility] [address] [place] [address] Radha Warner RN 05/23/2024 8:10 AM HYDROMETEOROLOGY TEACHER Ancillary Procedure [facility] IP [address] [facility] [address] [place] [address] 05/21/2024 9:12 PM HYDROMETEOROLOGY TEACHER - 05/26/2024 6:45 PM HYDROMETEOROLOGY TEACHER Hospital Encounter [facility] [address] [place] [address] Jimmie Zavala MD Liss, MD Ra Parnell, MD Sebastian Claros Rehan, MD Left arm pain (Primary Dx); Left leg pain; Shortness of breath; Urinary tract infection without hematuria, site unspecified; Allergy to drug Discharge Disposition: Discharge to home or self care 05/21/2024 12:58 PM HYDROMETEOROLOGY TEACHER - 05/21/2024 11:59 PM HYDROMETEOROLOGY TEACHER Hospital Encounter [facility] [address] [place] [address] Discharge Disposition: Discharge to home or self care 05/21/2024 11:00 AM HYDROMETEOROLOGY TEACHER - 05/21/2024 11:59 PM HYDROMETEOROLOGY TEACHER Hospital Encounter [facility] - Breast [facility] Floor [address] [place] [address] History of breast cancer; Axillary pain, left Discharge Disposition: Discharge to home or self care 05/16/2024 Telephone [facility] [address] [place] [address] 8 [place] [phone] Jeanine Ba, Cordelia 05/16/2024 Orders Only [facility] [address] [place] [address] 8 [place] [phone] Radha Mcgrath RN History of breast cancer (Primary Dx); Axillary pain, left 05/16/2024 Orders Only [facility] [address] [place] [address] 8 [place] [phone] Khris Arthur MD Swelling of left upper extremity (Primary Dx); Swelling of left lower extremity 05/14/2024 4:45 PM HYDROMETEOROLOGY TEACHER Lab [facility] - Lab Collection [facility] Floor [address] [place] [address] Malignant neoplasm of upper-inner quadrant of left breast in female, estrogen receptor positive (HCC) 05/14/2024 4:36 PM HYDROMETEOROLOGY TEACHER - 05/14/2024 11:59 PM HYDROMETEOROLOGY TEACHER Hospital Encounter [facility] [address] [facility] Floor [address] [place] [address] Malignant neoplasm of upper-inner quadrant of left breast in female, estrogen receptor positive (HCC) Discharge Disposition: Discharge to home or self care 05/14/2024 4:00 PM HYDROMETEOROLOGY TEACHER Lab [facility] [address] [facility] Floor [address] [place] [address] Malignant neoplasm of upper-inner quadrant of left breast in female, estrogen receptor positive (HCC) 05/14/2024 3:30 PM HYDROMETEOROLOGY TEACHER Office Visit [facility] [address] [facility] Floor [address] [place] [address] Khris Arthur MD Swelling of [...] drink = 0.6 oz pur e alcohol) Humans[employer] Utilities Answer Date Recorded In the past 12 months has [employer], gas, oil, or water [employer] threatened to shut off services in your [...] any clubs o r organizations such as moravian groups, unions, fraternal or athletic groups, or [...] any time in the past 12 m [facility], were you homeless or [...] on file Legal Sex Female 12:24 AM HYDROMETEOROLOGY TEACHER Gender Identity Not on file Sexual [...] GLUCOSE DEVICE Routine 05/26/2024 4 :27 PM HYDROMETEOROLOGY TEACHER POCT GLUCOSE DEVICE Routine 05/26/2024 1 1:38 AM HYDROMETEOROLOGY TEACHER POCT GLUCOSE DEVICE Routine 05/26/2024 8 :12 AM HYDROMETEOROLOGY TEACHER EGFR Routine 05/26/2024 12:05 AM HYDROMETEOROLOGY TEACHER DIFFERENTIAL AUTO Routine 05/26/2024 12: 05 AM HYDROMETEOROLOGY TEACHER PHOSPHORUS Routine 05/26/2024 12:05 AM HYDROMETEOROLOGY TEACHER COMPREHENSIVE METABOLIC PANEL Routine 05/26/2024 12:05 AM HYDROMETEOROLOGY TEACHER MAGNESIUM Routine 05/26/2024 12:05 AM HYDROMETEOROLOGY TEACHER CBC WITH AUTO DIFFERENTIAL Routine 05/26/2024 12:05 AM HYDROMETEOROLOGY TEACHER POCT GLUCOSE DEVICE Routine 05/25/2024 7 :44 PM HYDROMETEOROLOGY TEACHER POCT GLUCOSE DEVICE Routine 05/25/2024 5 :24 PM HYDROMETEOROLOGY TEACHER POCT GLUCOSE DEVICE Routine 05/25/2024 1 1:37 AM HYDROMETEOROLOGY TEACHER POCT GLUCOSE DEVICE Routine 05/25/2024 7 :27 AM HYDROMETEOROLOGY TEACHER EGFR Routine 05/25/2024 12:20 AM HYDROMETEOROLOGY TEACHER DIFFERENTIAL AUTO Routine 05/25/2024 12: 20 AM HYDROMETEOROLOGY TEACHER PHOSPHORUS Routine 05/25/2024 12:20 AM HYDROMETEOROLOGY TEACHER COMPREHENSIVE METABOLIC PANEL Routine 05/25/2024 12:20 AM HYDROMETEOROLOGY TEACHER MAGNESIUM Routine 05/25/2024 12:20 AM HYDROMETEOROLOGY TEACHER CBC WITH AUTO DIFFERENTIAL Routine 05/25/2024 12:20 AM HYDROMETEOROLOGY TEACHER POCT GLUCOSE DEVICE Routine 05/24/2024 8 :13 PM HYDROMETEOROLOGY TEACHER POCT GLUCOSE DEVICE Routine 05/24/2024 5 :17 PM HYDROMETEOROLOGY TEACHER POCT GLUCOSE DEVICE Routine 05/24/2024 1 2:49 PM HYDROMETEOROLOGY TEACHER POCT GLUCOSE DEVICE Routine 05/24/2024 9 :22 AM HYDROMETEOROLOGY TEACHER HERPES SIMPLEX VIRUS (HSV) PCR Routine 05/24/2024 8:47 AM HYDROMETEOROLOGY TEACHER POCT GLUCOSE DEVICE Routine 05/24/2024 8 :22 AM HYDROMETEOROLOGY TEACHER EGFR Routine 05/24/2024 12:29 AM HYDROMETEOROLOGY TEACHER DIFFERENTIAL AUTO Routine 05/24/2024 12: 29 AM HYDROMETEOROLOGY TEACHER PHOSPHORUS Routine 05/24/2024 12:29 AM HYDROMETEOROLOGY TEACHER COMPREHENSIVE METABOLIC PANEL Routine 05/24/2024 12:29 AM HYDROMETEOROLOGY TEACHER MAGNESIUM Routine 05/24/2024 12:29 AM HYDROMETEOROLOGY TEACHER CBC WITH AUTO DIFFERENTIAL Routine 05/24/2024 12:29 AM HYDROMETEOROLOGY TEACHER POCT GLUCOSE DEVICE Routine 05/23/2024 8 :16 PM HYDROMETEOROLOGY TEACHER POCT GLUCOSE DEVICE Routine 05/23/2024 6 :14 PM HYDROMETEOROLOGY TEACHER POCT GLUCOSE DEVICE Routine 05/23/2024 1 2:17 PM HYDROMETEOROLOGY TEACHER US VEIN DUPLEX LOWER EXTREMITY BILATERAL COMPLETE IP Routine 05/23/2024 11:45 AM HYDROMETEOROLOGY TEACHER POCT GLUCOSE DEVICE Routine 05/23/2024 8 :16 AM HYDROMETEOROLOGY TEACHER DIFFERENTIAL AUTO Routine 05/23/2024 2:3 0 AM HYDROMETEOROLOGY TEACHER CBC WITH AUTO DIFFERENTIAL Routine 05/23/2024 2:30 AM HYDROMETEOROLOGY TEACHER EGFR Routine 05/23/2024 12:42 AM HYDROMETEOROLOGY TEACHER LACTATE DEHYDROGENASE Routine 05/23/2024 12:42 AM HYDROMETEOROLOGY TEACHER URIC ACID Routine 05/23/2024 12:42 AM HYDROMETEOROLOGY TEACHER TYPE AND SCREEN Timed 05/23/2024 12:42 AM HYDROMETEOROLOGY TEACHER PHOSPHORUS Routine 05/23/2024 12:42 AM HYDROMETEOROLOGY TEACHER COMPREHENSIVE METABOLIC PANEL Routine 05/23/2024 12:42 AM HYDROMETEOROLOGY TEACHER MAGNESIUM Routine 05/23/2024 12:42 AM HYDROMETEOROLOGY TEACHER POCT GLUCOSE DEVICE Routine 05/22/2024 8 :56 PM HYDROMETEOROLOGY TEACHER POCT GLUCOSE DEVICE Routine 05/22/2024 6 :09 PM HYDROMETEOROLOGY TEACHER POCT GLUCOSE DEVICE Routine 05/22/2024 4 :[address] ABDOMEN PELVIS W CONTRAST ED 05/22/2024 2:32 PM HYDROMETEOROLOGY TEACHER POCT GLUCOSE DEVICE Routine 05/22/2024 1 2:58 PM HYDROMETEOROLOGY TEACHER POCT GLUCOSE DEVICE Routine 05/22/2024 9 :29 AM HYDROMETEOROLOGY TEACHER POCT GLUCOSE DEVICE Routine 05/22/2024 6 :[address] CHEST PE W CONTRAST ED 05/22/2024 1:31 AM HYDROMETEOROLOGY TEACHER D-DIMER, QUANTITATIVE Routine 05/22/2024 12:24 AM HYDROMETEOROLOGY TEACHER URINALYSIS, MICROSCOPIC ONLY Routine 05/21/2024 11:09 PM HYDROMETEOROLOGY TEACHER TROPONIN I HIGH-SENSITIVITY 2-HOUR Timed 05/21/2024 11:09 PM HYDROMETEOROLOGY TEACHER URINE CULTURE Routine 05/21/2024 11:09 PM HYDROMETEOROLOGY TEACHER RESPIRATORY PATHOGEN PANEL Routine 05/21/2024 11:09 PM HYDROMETEOROLOGY TEACHER URINALYSIS AND REFLEX TO MICROSCOPIC AND CULTURE Routine 05/21/2024 11:09 PM HYDROMETEOROLOGY TEACHER POCT GLUCOSE DEVICE Routine 05/21/2024 8 :55 PM HYDROMETEOROLOGY TEACHER TROPONIN I HIGH-SENSITIVITY 4-HOUR Timed 05/21/2024 7:26 PM HYDROMETEOROLOGY TEACHER LIPID PANEL STAT 05/21/2024 4:20 PM HYDROMETEOROLOGY TEACHER HEMOGLOBIN A1C STAT 05/21/2024 4:20 PM HYDROMETEOROLOGY TEACHER EGFR STAT 05/21/2024 4:20 PM HYDROMETEOROLOGY TEACHER DIFFERENTIAL AUTO STAT 05/21/2024 4:2 0 PM HYDROMETEOROLOGY TEACHER TROPONIN I HIGH-SENSITIVITY SERIES (BASELINE, 2HR, 4HR, 6HR) STAT 05/21/2024 4:20 PM HYDROMETEOROLOGY TEACHER COMPREHENSIVE METABOLIC PANEL STAT 05/21/2024 4:20 PM HYDROMETEOROLOGY TEACHER CBC WITH AUTO DIFFERENTIAL STAT 05/21/2024 4:20 PM HYDROMETEOROLOGY TEACHER XR CHEST PA LATERAL 2 VIEWS ED 05/21/2024 2:23 PM HYDROMETEOROLOGY TEACHER POCT GLUCOSE DEVICE Routine 05/21/2024 1 :39 PM HYDROMETEOROLOGY TEACHER ECG 12-LEAD STAT 05/21/2024 1:36 PM HYDROMETEOROLOGY TEACHER US AXILLARY LEFT Schedule Routine, Read Routine (OP Routine) 05/21/2024 12:13 PM HYDROMETEOROLOGY TEACHER History of breast cancer Axillary pain, left URINALYSIS, MICROSCOPIC ONLY Routine 05/14/2024 4:50 PM HYDROMETEOROLOGY TEACHER Malignant neoplasm of upper-inner quadrant of left breast in female, estrogen receptor positive (HCC) URINALYSIS AND REFLEX TO MICROSCOPIC AND CULTURE Routine 05/14/2024 4:50 PM HYDROMETEOROLOGY TEACHER Malignant neoplasm of upper-inner quadrant of left breast in female, estrogen receptor positive (HCC) XR RIBS LEFT 2 VIEWS Schedule Routine, Read Routine (OP Routine) 05/14/2024 4:44 PM HYDROMETEOROLOGY TEACHER Malignant neoplasm of upper-inner quadrant of left [...] breath since last night. 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 AR: VALERY Report ID: [id number] Reading Location: [id number] Procedure Note Juve Gallegos MD - 07/01/2024 [...] Juve Gallegos M.D. AR: VALERY Report ID: [id number] Reading Location: [id number] us Lila MCKEON IMG CT PROCEDURES Final Resu lt * (ABNORMAL) Troponin T high-sensitivity 2-hour (07/01/2024 3:43 PM CDT) Trop T hs 27(H) <=14 ng/L Comment: Interpretive Data For further hscTnT resources including the diagnostic algorithm and an aid in interpretation, copy and paste this link: https://nrl.testcatalog.org/show/hsTrop Current Interpretive Data last revised 2020. Testing performed by: [address] [address] Trop T hs delta 0 ng/L MARY JANE PHAM Comment:Testing performed by : [address] [address] Trop T hs interp Insignificant MARY JANE PHAM Comment:Testing performed by : [address] [address] Blood 07/01/2024 3:43 PM CDT 07/01/2024 3:52 PM CDT us Ilana Stevens MD LAB BLOOD ORDERABLES F inal Result MARY JANE [address] [facility] Department [place] [address] * (ABNORMAL) Urinalysis reflex to microscopic and culture Urine (07/01/2024 3:43 PM CDT) Color, ur Yellow Yellow Comment:Testing performed by : [address] [address] Clarity, ur Clear Clear MARY JANE PHAM Comment:Testing performed by : [address] [address] Specific gravity, ur 1.020 1.003 - 1.030 MARY JANE PHAM Comment:Testing performed by : [facility], [address] [place] [address], [place]., [address] pH, urine 6.0 MARY JANE Comment: Interpretive Data U rine pH is affected by diet, medications, systemic acid-base disturbances, and renal tubular function. pH may affect urinary stone formation. For example, urine pH below 6.0 may help reduce the tendency for calcium phosphate stones and pH greater than 6.0 may reduce the tendency for uric acid stone formation. Source: [facility] [employer] Current Interpretive Data was last revised on 2017 Testing performed by: [address], [place]., [address] Protein, ur ql Negative Negative MARY JANE Comment:Testing performed by : [address], [place]., [address] Glucose, ur ql 2+(A) Negative MARY JANE Comment:Testing performed by : [address], [place]., [address] Ketones, ur Negative Negative MARY JANE Comment:Testing performed by : [address], [place]., [address] Bilirubin, ur Negative Negative MARY JANE Comment:Testing performed by : [address], [place]., [address] Blood, ur Trace(A) Negative MARY JANE Comment:Testing performed by : [address], [place]., [address] Urobilinogen, ur <2.0 <2.0 mg/dL MARY JANE Comment:Testing performed by : [address], [place]., [address] Nitrite, ur Negative Negative MARY JANE Comment:Testing performed by : [address], [place]., [address] Leukocyte esterase, ur Negative Negative MARY JANE Comment:Testing performed by : [address] [address] UA reflex comment Reflex to microscopic UA will be performed. MARY JANE Comment:Testing performed by : [address], [place]., [address] Urine 07/01/2024 3:43 PM CDT 07/01/2024 3:52 PM CDT Ilana Stevens MD LAB MICROBIOLOGY - GEN ERAL ORDERABLES Final Result Performing Organization Address [facility] de Phone Number MARY JANE [facility] [place] [address] * (ABNORMAL) Urinalysis, microscopic only (07/01/2024 3:43 PM CDT) WBC, ur 0-5 0 - 5 /HPF Comment:Testing performed by : [address] [address] RBC, ur 3-5(A) 0 - 2 /HPF MARY JANE Comment:Testing performed by : [address] [address] Epithelial cells, squamous, ur 1-5 0 - 5 /HPF MARY JANE Comment:Testing performed by : [address] [address] Mucous, ur Present(A) MARY JANE Comment:Testing performed by : [address] [address] Culture Reflex Comment Reflex conditions for urine culture (WBC >10) not met. MARY JANE Comment:Testing performed by : [address] [address] Urine 07/01/2024 3:43 PM CDT 07/01/2024 3:52 PM CDT Ilana Stevens MD LAB URINE ORDERABLES F inal Result Performing Organization Address [facility] Co de Phone Number MARY JANE [address] [facility] [employer] [place] [address] * XR Chest 1 Vw Portable (if [...] Romelia Bowen D.O. PS: PS Report ID: [id number] Reading Location: [id number] Procedure Note Romelia Bowen, - 07/01/2024 EXAM [...] Romelia Bowen D.O. PS: PS Report ID: [id number] Reading Location: [id number] Ilana Stevens MD IMG XR PROCEDURES Deann l Result * ECG 12 lead (07/01/2024 2:05 PM CDT) Ventricular Rate EKG/Min 76 BPM [facility] Atrial Rate 76 BPM [facility] OK-Interval (MSEC) 130 ms [facility] QRS-Interval (MSEC) 86 ms [facility] QT-Interval (MSEC) 386 ms [facility] QTc 434 ms [facility] P [place] 26 degrees [facility] R [place] 22 degrees [facility] T [place] 46 degrees [facility] Diagnosis Normal sinus rhythm Normal ECG When compared with ECG of 28-DEC-2023 12:49, No significant change was found Confirmed by DUTCH BURGOS M.D. ([id number]) on 07/01/2024 10:10:22 PM [facility] 07/01/2024 2:05 PM CDT 07/01/2024 10:10 PM CDT us Ilana Stevens MD ECG ORDERABLES Final Result Performing Organization Address City/[facility]/ZIP Co de Phone Number [facility] * (ABNORMAL) Troponin T high-sensitivity series (baseline, 2hr, 4hr, 6hr) (07/01/2024 2:02 PM CDT) Pathologist [facility] Trop T hs 27(H) <=14 ng/L Comment: Interpretive Data For further hscTnT resources including the diagnostic algorithm and an aid in interpretation, copy and paste this link: https://nrl.testcatalog.org/show/hsTrop Current Interpretive Data last revised 2020. Testing performed by: [facility], [address] [place] [address]., [address] Blood 07/01/2024 2:02 PM CDT 07/01/2024 2:12 PM CDT us Ilana Stevens MD LAB BLOOD ORDERABLES F inal Result MARY JANE [address] [facility] Department [place] [address] * Influenza A/B, RSV, and COVID-19 PCR Nasopharyngeal (07/01/2024 2:02 PM CDT) [facility] COVID-19 RNA Negative Negative Comment:Testing performed by : [address] [address] Influenza A RNA Negative Negative [facility] Comment:Testing performed by : [address] [address] Influenza B RNA Negative Negative [facility] Comment:Testing performed by : [address] [address] RSV RNA Negative Negative [facility] Comment: Interpretive data: Testing performed by [facility]. This test is performed using the [employer] Xpert Xpress CoV-2/Flu/RSV plus assay. This is a multiplex, real-time reverse transcriptase PCR assay intended for the qualitative detection of nucleic acid from SARS-CoV-2, influenza A, influenza B, and respiratory syncytial virus. This assay has been cleared by the [place] Food and Drug administration. The performance characteristics have been verified by the [facility]. Results must be considered in the clinical context, and a negative result does not rule out infection. Interpretive Data last revised 2023 Testing performed by: [address] [address] Nasopharyngeal 07/01/2024 2: 02 PM CDT 07/01/2024 2:12 PM CDT Narrative [facility] - 07/01/2024 2:52 PM CDT Is the Patient experiencing symptoms consistent with COVID?->Yes us Ilana Stevens MD LAB MICROBIOLOGY - GEN ERAL ORDERABLES Final Result [facility] [address] [facility] Department [place] [address] * eGFR (07/01/2024 2:02 PM CDT) [facility] eGFR >90 >=60 mL/min/1. 73 m2 [...] was last reviewed 2021. Testing performed by: [address] [address] Blood 07/01/2024 2:02 PM CDT 07/01/2024 2:12 PM CDT us Ilana Stevens MD LAB BLOOD ORDERABLES F inal Result [place] [id number] [facility] Department of Laboratories [place], [place] [id number] * Differential, auto (07/01/2024 2:02 PM CDT) Neutrophil abs 5.3 1.5 - 6.5 K/cumm Comment:Testing performed by : [address] [address] Imm gran abs 0.0 0.0 - 0.1 K/cumm MARY JANE Comment:Testing performed by : [address] [address] Lymphocyte abs 2.6 0.8 - 3.3 K/cumm MARY JANE Comment:Testing performed by : [address] [address] Monocyte abs 0.8 0.2 - 0.8 K/cumm MARY JANE Comment:Testing performed by : [address] [address] Eosinophil abs 0.2 0.0 - 0.5 K/cumm MARY JANE Comment:Testing performed by : [address] [address] Basophil abs 0.0 0.0 - 0.1 K/cumm MARY JANE Comment:Testing performed by : [address] [address] Neutrophil pct 59.1 % [facility] Comment: Interpretive Data Percent cell count reference ranges are not reported, since discordance with absolute values may lead to misinterpretation of CBC data. Current Interpretive Data was last revised on 2017. Testing performed by: [address] [address] Imm gran pct 0.2 % [facility] Comment: Interpretive Data Percent cell count reference ranges are not reported, since discordance with absolute values may lead to misinterpretation of CBC data. Current Interpretive Data was last revised on 2017. Testing performed by: [address] [address] Lymphocyte pct 29.0 % [facility] Comment: Interpretive Data Percent cell count reference ranges are not reported, since discordance with absolute values may lead to misinterpretation of CBC data. Current Interpretive Data was last revised on 2017. Testing performed by: [address] [address] Monocyte pct 9.3 % [facility] Comment: Interpretive Data Percent cell count reference ranges are not reported, since discordance with absolute values may lead to misinterpretation of CBC data. Current Interpretive Data was last revised on 2017. Testing performed by: [address] [address] Eosinophil pct 2.2 % [facility] Comment: Interpretive Data Percent cell count reference ranges are not reported, since discordance with absolute values may lead to misinterpretation of CBC data. Current Interpretive Data was last revised on 2017. Testing performed by: [address] [address] Basophil pct 0.2 % [facility] Comment: Interpretive Data Percent cell count reference ranges are not reported, since discordance with absolute values may lead to misinterpretation of CBC data. Current Interpretive Data was last revised on 2017. Testing performed by: [facility], [address] [place] [address]., [address] Blood 07/01/2024 2:02 PM CDT 07/01/2024 2:12 PM CDT us Ilana Stevens MD LAB BLOOD ORDERABLES F inal Result MARY JANE [address] [facility] Department [place] [address] * Pro B-type natriuretic peptide [...] Date: 2017. Testing performed by: [facility], [address] [place] [address]., [id number] Blood 07/01/2024 2:02 PM CDT 07/01/2024 2:12 PM CDT us Ilana Stevens MD LAB BLOOD ORDERABLES F inal Result [facility] [address] [facility] [place] [address] * (ABNORMAL) CBC with auto differential (07/01/2024 2:02 PM CDT) Pathologist [facility] WBC 9.0 3.8 - 9.9 K/cumm Comment:Testing performed by : [address] [address] Hgb 13.2 11.9 - 15.5 g/dL MARY JANE Comment:Testing performed by : [address], [address] Hct 41.1 35.6 - 45.5 % MARY JANE Comment:Testing performed by : [address] [address] Plt 277 150 - 400 K/cumm MARY JANE Comment:Testing performed by : [address] [address] MPV 9.5 9.1 - 12.3 fL MARY JANE Comment:Testing performed by : [address] [address] RBC 4.53 3.90 - 5.20 M/cumm MARY JANE Comment:Testing performed by : [address] [address] MCV 90.7 81.3 - 96.4 fL MARY JANE Comment:Testing performed by : [address] [address] MCH 29.1 27.1 - 33.3 pg MARY JANE PHAM Comment:Testing performed by : [address] [address] MCHC 32.1(L) 32.3 - 35.7 g/dL MARY JANE Comment:Testing performed by : [address] [place] [address] RDW CV 13.2 11.1 - 14.9 % MARY JANE PHAM Comment:Testing performed by : [address] [address] RDW SD 44.2 35.7 - 48.1 fL MARY JANE PHAM Comment:Testing performed by : [facility], [address] [place] [address]., [address] NRBC abs 0.00 0.00 - 0.01 K/cumm MARY JANE Comment:Testing performed by : [address] [address] Blood 07/01/2024 2:02 PM CDT 07/01/2024 2:12 PM CDT us Ilana Stevens MD LAB BLOOD ORDERABLES F inal Result MARY JANE [facility] Department [place] [address] * Comprehensive metabolic panel (07/01/2024 2:02 PM CDT) Sodium 137 135 - 145 mmol/L Comment:Testing performed by : [address] [address] Potassium, pl 4.2 3.3 - 4.9 mmol/L MARY JANE Comment:Testing performed by : [address] [address] Chloride 101 97 - 110 mmol/L MARY JANE Comment:Testing performed by : [address] [address] CO2 27 22 - 32 mmol/L MARY JANE Comment:Testing performed by : [address] [address] Anion gap 9 2 - 15 mmol/L MARY JANE Comment:Testing performed by : [address] [address] BUN 15 6 - 25 mg/dL MARY JANE Comment:Testing performed by : [address] [address] Creatinine 0.60 0.60 - 1.10 mg/dL MARY JANE Comment:Testing performed by : [address] [address] Glucose 166 70 - 199 mg/dL MARY [...] was last revised 2022. Testing performed by: [address] [address] Calcium 9.8 8.5 - 10.3 mg/dL MARY JANE Comment:Testing performed by : [address] [address] Bilirubin, total 0.5 0.1 - 1.2 mg/dL MARY JANE Comment:Testing performed by : [address] [address] Protein, pl 8.0 6.5 - 8.5 g/dL MARY JANE Comment:Testing performed by : [address] [address] Albumin 3.8 3.5 - 5.0 g/dL MARY JANE Comment:Testing performed by : [address] [address] Alk phos 72 40 - 130 Units/L MARY JANE Comment:Testing performed by : [address] [address] ALT 19 7 - 45 Units/L MARY JANE Comment:Testing performed by : [address] [address] AST 23 10 - 45 Units/L MARY JANE Comment:Testing performed by : [address] [address] Blood 07/01/2024 2:02 PM CDT 07/01/2024 2:12 PM CDT Ilana Stevens MD LAB BLOOD ORDERABLES F inal Result MARY JANE [address] [facility] Department [place] [address] * POCT glucose (05/26/2024 4:27 PM HYDROMETEOROLOGY TEACHER) Glucose, POC 137 70 - 199 mg/dL Blood 05/26/2024 4:27 PM HYDROMETEOROLOGY TEACHER 05/26/2024 4:27 PM HYDROMETEOROLOGY TEACHER Carlos Real MD LAB POCT ORDERABLES - DEVICE Fin al Result Performing Organization Address [facility] de Phone Number BCPUJA [facility] [employer] [place] [address] * POCT glucose (05/26/2024 11:38 AM HYDROMETEOROLOGY TEACHER) Glucose, POC 146 70 - 199 mg/dL Blood 05/26/2024 11:3 8 AM HYDROMETEOROLOGY TEACHER 05/26/2024 11:38 AM HYDROMETEOROLOGY TEACHER Carlos Real MD LAB POCT ORDERABLES - DEVICE Fin al Result Performing Organization Address [facility] Co de Phone Number MARY JANE [facility] [place] [address] * POCT glucose (05/26/2024 8:12 AM HYDROMETEOROLOGY TEACHER) Glucose, POC 134 70 - 199 mg/dL Blood 05/26/2024 8:12 AM HYDROMETEOROLOGY TEACHER 05/26/2024 8:12 AM HYDROMETEOROLOGY TEACHER Carlos Real MD LAB POCT ORDERABLES - DEVICE Fin al Result Performing Organization Address City/[facility] Co de Phone Number MARY JANE [facility] [employer] [place] [address] * eGFR (05/26/2024 12:05 AM HYDROMETEOROLOGY TEACHER) Pathologist [facility] eGFR >90 >=60 mL/min/1. 73 [...] reviewed 2021. Blood 05/26/2024 12:0 5 AM HYDROMETEOROLOGY TEACHER 05/26/2024 12:23 AM HYDROMETEOROLOGY TEACHER Carlos Real MD LAB BLOOD ORDERABLES Final Resul t [facility] Department [place] [address] * (ABNORMAL) Differential, auto (05/26/2024 12:05 AM HYDROMETEOROLOGY TEACHER) Pathologist [facility] Neutrophil abs 6.4 1.5 - 6.5 K/cumm Imm gran abs 0.0 0.0 - 0.1 K/cumm [facility] Lymphocyte abs 2.9 0.8 - 3.3 K/cumm [facility] Monocyte abs 0.9(H) 0.2 - 0.8 K/cumm [facility] Eosinophil abs 0.3 0.0 - 0.5 K/cumm [facility] Basophil abs 0.0 0.0 - 0.1 K/cumm [facility] Neutrophil pct 60.4 % [facility] Comment: Interpretive Data Percent cell count reference ranges are not reported, since discordance with absolute values may lead to misinterpretation of CBC data. Current Interpretive Data was last revised on 2017. Imm gran pct 0.4 % [facility] Comment: Interpretive Data Percent cell count reference ranges are not reported, since discordance with absolute values may lead to misinterpretation of CBC data. Current Interpretive Data was last revised on 2017. Lymphocyte pct 27.5 % [facility] Comment: Interpretive Data Percent cell count reference ranges are not reported, since discordance with absolute values may lead to misinterpretation of CBC data. Current Interpretive Data was last revised on 2017. Monocyte pct 8.2 % [facility] Comment: Interpretive Data Percent cell count reference ranges are not reported, since discordance with absolute values may lead to misinterpretation of CBC data. Current Interpretive Data was last revised on 2017. Eosinophil pct 3.1 % [facility] Comment: Interpretive Data [...] on 2017. Blood 05/26/2024 12:0 5 AM HYDROMETEOROLOGY TEACHER 05/26/2024 12:07 AM HYDROMETEOROLOGY TEACHER Carlos Real MD LAB BLOOD ORDERABLES Final Resul t [facility] Department [place] [address] * (ABNORMAL) CBC with auto differential (05/26/2024 12:05 AM HYDROMETEOROLOGY TEACHER) WBC 10.6(H) 3.8 - 9.9 K/cumm Hgb 12.5 11.9 - 15.5 g/dL [facility] Hct 39.2 35.6 - 45.5 % [facility] Plt 248 150 - 400 K/cumm [facility] MPV 9.7 9.1 - 12.3 fL [facility] RBC 4.32 3.90 - 5.20 M/cumm [facility] MCV 90.7 81.3 - 96.4 fL [facility] MCH 28.9 27.1 - 33.3 pg [facility] MCHC 31.9(L) 32.3 - 35.7 g/dL [facility] RDW CV 13.5 11.1 - 14.9 % [facility] RDW SD 45.1 35.7 - 48.1 fL [facility] NRBC abs 0.00 0.00 - 0.01 K/cumm [facility] Blood 05/26/2024 12:0 5 AM HYDROMETEOROLOGY TEACHER 05/26/2024 12:07 AM HYDROMETEOROLOGY TEACHER Carlos Real MD LAB BLOOD ORDERABLES Final Resul t Performing Organization Address City/[facility] Co de Phone Number [facility] Department [place] [address] * Phosphorus (05/26/2024 12:05 AM HYDROMETEOROLOGY TEACHER) Phosphorus, pl 3.2 2.3 - 4.5 mg/dL Blood 05/26/2024 12:0 5 AM HYDROMETEOROLOGY TEACHER 05/26/2024 12:08 AM HYDROMETEOROLOGY TEACHER Carlos Real MD LAB BLOOD ORDERABLES Final Resul t [facility] Department [place] [address] * Magnesium (05/26/2024 12:05 AM HYDROMETEOROLOGY TEACHER) Magnesium 1.8 1.4 - 2.5 mg/dL Blood 05/26/2024 12:0 5 AM HYDROMETEOROLOGY TEACHER 05/26/2024 12:08 AM HYDROMETEOROLOGY TEACHER Carlos Real MD LAB BLOOD ORDERABLES Final Resul t Performing Organization Address [facility] Co de Phone Number [facility] Department [place] [address] * (ABNORMAL) Comprehensive metabolic panel (05/26/2024 12:05 AM HYDROMETEOROLOGY TEACHER) Sodium 136 135 - 145 mmol/L Potassium, pl 4.2 3.3 - 4.9 mmol/L [facility] Chloride 101 97 - 110 mmol/L [facility] CO2 29 22 - 32 mmol/L [facility] Anion gap 6 2 - 15 mmol/L [facility] BUN 19 6 - 25 mg/dL [facility] Creatinine 0.67 0.60 - 1.10 mg/dL [facility] Glucose 164 70 - 199 mg/dL [facility] Comment: Interpretive Data Fasting glucose >/= [...] 2022. Calcium 9.4 8.5 - 10.3 mg/dL [facility] Bilirubin, total 0.4 0.1 - 1.2 mg/dL [facility] Protein, pl 7.1 6.5 - 8.5 g/dL [facility] Albumin 3.3(L) 3.5 - 5.0 g/dL [facility] Alk phos 65 40 - 130 Units/L [facility] ALT 17 7 - 45 Units/L [facility] AST 19 10 - 45 Units/L [facility] Blood 05/26/2024 12:0 5 AM HYDROMETEOROLOGY TEACHER 05/26/2024 12:08 AM HYDROMETEOROLOGY TEACHER Carlos Real MD LAB BLOOD ORDERABLES Final Resul t Performing Organization Address City/State/[facility] Co de Phone Number [facility] [employer] [place] [address] * POCT glucose (05/25/2024 7:44 PM HYDROMETEOROLOGY TEACHER) Glucose, POC 160 70 - 199 mg/dL Blood 05/25/2024 7:44 PM HYDROMETEOROLOGY TEACHER 05/25/2024 7:44 PM HYDROMETEOROLOGY TEACHER Carlos Real MD LAB POCT ORDERABLES - DEVICE Fin al Result Performing Organization Address [facility] [place] [address] * POCT glucose (05/25/2024 5:24 PM HYDROMETEOROLOGY TEACHER) Glucose, POC 152 70 - 199 mg/dL Blood 05/25/2024 5:24 PM HYDROMETEOROLOGY TEACHER 05/25/2024 5:24 PM HYDROMETEOROLOGY TEACHER Carlos Real MD LAB POCT ORDERABLES - DEVICE Fin al Result Performing Organization Address [facility] Co de Phone Number [facility] Department of [employer] [place] [address] * POCT glucose (05/25/2024 11:37 AM HYDROMETEOROLOGY TEACHER) Glucose, POC 143 70 - 199 mg/dL Blood 05/25/2024 11:3 7 AM HYDROMETEOROLOGY TEACHER 05/25/2024 11:37 AM HYDROMETEOROLOGY TEACHER Carlos Real MD LAB POCT ORDERABLES - DEVICE Fin al Result Performing Organization Address [facility] Co de Phone Number [facility] [employer] [place] [address] * POCT glucose (05/25/2024 7:27 AM HYDROMETEOROLOGY TEACHER) Glucose, POC 134 70 - 199 mg/dL Blood 05/25/2024 7:27 AM HYDROMETEOROLOGY TEACHER 05/25/2024 7:27 AM HYDROMETEOROLOGY TEACHER Carlos Real MD LAB POCT ORDERABLES - DEVICE Fin al Result Performing Organization Address [facility] Co de Phone Number [facility] [place] [address] * eGFR (05/25/2024 12:20 AM HYDROMETEOROLOGY TEACHER) Pathologist [facility] eGFR >90 >=60 mL/min/1. 73 [...] reviewed 2021. Blood 05/25/2024 12:2 0 AM HYDROMETEOROLOGY TEACHER 05/25/2024 12:43 AM HYDROMETEOROLOGY TEACHER Naila Guzman CURATOR [employer] LAB BLOOD ORDERABLES Final Result Performing Organization Address [facility]/ZIP Co de Phone Number [facility] Department [place] [address] * Differential, auto (05/25/2024 12:20 AM HYDROMETEOROLOGY TEACHER) Pathologist [facility] Neutrophil abs 5.9 1.5 - 6.5 K/cumm Imm gran abs 0.0 0.0 - 0.1 K/cumm [facility] Lymphocyte abs 2.4 0.8 - 3.3 K/cumm [facility] Monocyte abs 0.8 0.2 - 0.8 K/cumm [facility] Eosinophil abs 0.3 0.0 - 0.5 K/cumm [facility] Basophil abs 0.0 0.0 - 0.1 K/cumm [facility] Neutrophil pct 62.6 % [facility] Comment: Interpretive Data Percent cell count reference ranges are not reported, since discordance with absolute values may lead to misinterpretation of CBC data. Current Interpretive Data was last revised on 2017. Imm gran pct 0.3 % [facility] Comment: Interpretive Data Percent cell count reference ranges are not reported, since discordance with absolute values may lead to misinterpretation of CBC data. Current Interpretive Data was last revised on 2017. Lymphocyte pct 24.8 % [facility] Comment: Interpretive Data [...] revised on 2017. Eosinophil pct 3.2 % [facility] Comment: Interpretive Data Percent cell count reference ranges are not reported, since discordance with absolute values may lead to misinterpretation of CBC data. Current Interpretive Data was last revised on 2017. Basophil pct 0.3 % [facility] Comment: Interpretive Data Percent cell count reference ranges are not reported, since discordance with absolute values may lead to misinterpretation of CBC data. Current Interpretive Data was last revised on 2017. Blood 05/25/2024 12:2 0 AM HYDROMETEOROLOGY TEACHER 05/25/2024 12:29 AM HYDROMETEOROLOGY TEACHER us Naila Guzman NP LAB BLOOD ORDERABLES Final Result [facility] [place] [address] * (ABNORMAL) CBC with auto differential (05/25/2024 12:20 AM HYDROMETEOROLOGY TEACHER) [facility] WBC 9.5 3.8 - 9.9 K/cumm Hgb 12.8 11.9 - 15.5 g/dL [facility] Hct 40.0 35.6 - 45.5 % [facility] Plt 246 150 - 400 K/cumm [facility] MPV 9.8 9.1 - 12.3 fL [facility] RBC 4.42 3.90 - 5.20 M/cumm [facility] MCV 90.5 81.3 - 96.4 fL [facility] MCH 29.0 27.1 - 33.3 pg [facility] MCHC 32.0(L) 32.3 - 35.7 g/dL [facility] RDW CV 13.5 11.1 - 14.9 % [facility] RDW SD 45.3 35.7 - 48.1 fL [facility] NRBC abs 0.00 0.00 - 0.01 K/cumm [facility] Blood 05/25/2024 12:2 0 AM HYDROMETEOROLOGY TEACHER 05/25/2024 12:29 AM HYDROMETEOROLOGY TEACHER Naila Guzman NP LAB BLOOD ORDERABLES Final Result Performing Organization Address City/[facility] Co de Phone Number [facility] [place] [address] * Phosphorus (05/25/2024 12:20 AM HYDROMETEOROLOGY TEACHER) [facility] Phosphorus, pl 3.1 2.3 - 4.5 mg/dL Blood 05/25/2024 12:2 0 AM HYDROMETEOROLOGY TEACHER 05/25/2024 12:29 AM HYDROMETEOROLOGY TEACHER Naila Guzman NP LAB BLOOD ORDERABLES Final Result [facility] [place] [address] * Magnesium (05/25/2024 12:20 AM HYDROMETEOROLOGY TEACHER) Magnesium 1.9 1.4 - 2.5 mg/dL Blood 05/25/2024 12:2 0 AM HYDROMETEOROLOGY TEACHER 05/25/2024 12:29 AM HYDROMETEOROLOGY TEACHER Naila Guzman CURATOR [employer] LAB BLOOD ORDERABLES Final Result [facility] Department [place] [address] * (ABNORMAL) Comprehensive metabolic panel (05/25/2024 12:20 AM HYDROMETEOROLOGY TEACHER) Pathologist [facility] Sodium 138 135 - 145 mmol/L Potassium, pl 4.4 3.3 - 4.9 mmol/L [facility] Chloride 101 97 - 110 mmol/L [facility] CO2 29 22 - 32 mmol/L [facility] Anion gap 8 2 - 15 mmol/L [facility] BUN 20 6 - 25 mg/dL [facility] Creatinine 0.69 0.60 - 1.10 mg/dL [facility] Glucose 156 70 - 199 mg/dL [facility] Comment: Interpretive Data Fasting glucose >/= [...] 2022. Calcium 9.4 8.5 - 10.3 mg/dL [facility] Bilirubin, total 0.5 0.1 - 1.2 mg/dL [facility] Protein, pl 7.4 6.5 - 8.5 g/dL [facility] Albumin 3.4(L) 3.5 - 5.0 g/dL [facility] Alk phos 67 40 - 130 Units/L [facility] ALT 18 7 - 45 Units/L [facility] AST 16 10 - 45 Units/L [facility] Blood 05/25/2024 12:2 0 AM HYDROMETEOROLOGY TEACHER 05/25/2024 12:29 AM HYDROMETEOROLOGY TEACHER Naila Guzman CURATOR [employer] LAB BLOOD ORDERABLES Final Result Performing Organization Address [facility] Co de Phone Number [facility] Department of [employer] [place] [address] * POCT glucose (05/24/2024 8:13 PM HYDROMETEOROLOGY TEACHER) Glucose, POC 171 70 - 199 mg/dL Blood 05/24/2024 8:13 PM HYDROMETEOROLOGY TEACHER 05/24/2024 8:13 PM HYDROMETEOROLOGY TEACHER Carlos Real MD LAB POCT ORDERABLES - DEVICE Fin al Result Performing Organization Address [facility] de Phone Number [facility] Department of [employer] [place] [address] * POCT glucose (05/24/2024 5:17 PM HYDROMETEOROLOGY TEACHER) Glucose, POC 133 70 - 199 mg/dL Blood 05/24/2024 5:17 PM HYDROMETEOROLOGY TEACHER 05/24/2024 5:17 PM HYDROMETEOROLOGY TEACHER Carlos Real MD LAB POCT ORDERABLES - DEVICE Fin al Result Performing Organization Address [facility] de Phone Number [facility] [employer] [place] [address] * POCT glucose (05/24/2024 12:49 PM HYDROMETEOROLOGY TEACHER) Glucose, POC 180 70 - 199 mg/dL Blood 05/24/2024 12:4 9 PM HYDROMETEOROLOGY TEACHER 05/24/2024 12:49 PM HYDROMETEOROLOGY TEACHER Result [facility] Carlos Real MD LAB POCT ORDERABLES - DEVICE Fin al Result Performing Organization Address City/[facility] Co de Phone Number [facility] [place] [employer] [place] [address] * POCT glucose (05/24/2024 9:22 AM HYDROMETEOROLOGY TEACHER) Pathologist [facility] Glucose, POC 139 70 - 199 mg/dL Blood 05/24/2024 9:22 AM HYDROMETEOROLOGY TEACHER 05/24/2024 9:22 AM HYDROMETEOROLOGY TEACHER Result [facility] Carlos Real MD LAB POCT ORDERABLES - DEVICE Fin al Result Performing Organization Address [facility] [place] [address] * Herpes Simplex Virus (HSV) PCR Oral (05/24/2024 8:47 AM HYDROMETEOROLOGY TEACHER) [facility] HSV DNA Not Detected Not Detected [facility] Comment: Interpretive Data This assay [...] reviewed on 08/21/2018 Oral 05/24/2024 8:47 AM HYDROMETEOROLOGY TEACHER 05/24/2024 9:24 AM HYDROMETEOROLOGY TEACHER Narrative [facility] - 05/24/2024 4:28 PM HYDROMETEOROLOGY TEACHER Oral ulcer swab Result [facility] Naila Guzman NP LAB MICROBIOLOGY - GENERAL ORDERABLES Final Result Performing Organization Address City/[facility] Co de Phone Number [facility] [employer] [place] [address] [facility] * POCT glucose (05/24/2024 8:22 AM HYDROMETEOROLOGY TEACHER) Glucose, POC 132 70 - 199 mg/dL Blood 05/24/2024 8:22 AM HYDROMETEOROLOGY TEACHER 05/24/2024 8:22 AM HYDROMETEOROLOGY TEACHER Carlos Real MD LAB POCT ORDERABLES - DEVICE Fin al Result Performing Organization Address City/[facility]/ZIP Co de Phone Number [facility] Department [place] [address] * eGFR (05/24/2024 12:29 AM HYDROMETEOROLOGY TEACHER) eGFR 87 >=60 mL/min/1. 73 m2 Comment: [...] reviewed 2021. Blood 05/24/2024 12:2 9 AM HYDROMETEOROLOGY TEACHER 05/24/2024 12:54 AM HYDROMETEOROLOGY TEACHER us Naila Guzman CURATOR [employer] LAB BLOOD ORDERABLES Final Result Performing Organization Address [facility]/ZIP Co de Phone Number [facility] Department [place] [address] * (ABNORMAL) Differential, auto (05/24/2024 12:29 AM HYDROMETEOROLOGY TEACHER) Neutrophil abs 5.3 1.5 - 6.5 K/cumm Imm gran abs 0.0 0.0 - 0.1 K/cumm [facility] Lymphocyte abs 3.0 0.8 - 3.3 K/cumm [facility] Monocyte abs 0.9(H) 0.2 - 0.8 K/cumm [facility] Eosinophil abs 0.3 0.0 - 0.5 K/cumm [facility] Basophil abs 0.0 0.0 - 0.1 K/cumm [facility] Neutrophil pct 55.8 % [facility] Comment: Interpretive Data Percent cell count reference ranges are not reported, since discordance with absolute values may lead to misinterpretation of CBC data. Current Interpretive Data was last revised on 2017. Imm gran pct 0.4 % [facility] Comment: Interpretive Data Percent cell count reference ranges are not reported, since discordance with absolute values may lead to misinterpretation of CBC data. Current Interpretive Data was last revised on 2017. Lymphocyte pct 31.4 % [facility] Comment: Interpretive Data Percent cell count reference ranges are not reported, since discordance with absolute values may lead to misinterpretation of CBC data. Current Interpretive Data was last revised on 2017. Monocyte pct 9.0 % [facility] Comment: Interpretive Data Percent cell count reference ranges are not reported, since discordance with absolute values may lead to misinterpretation of CBC data. Current Interpretive Data was last revised on 2017. Eosinophil pct 3.0 % [facility] Comment: Interpretive Data [...] on 2017. Blood 05/24/2024 12:2 9 AM HYDROMETEOROLOGY TEACHER 05/24/2024 12:54 AM HYDROMETEOROLOGY TEACHER Naila Guzman NP LAB BLOOD ORDERABLES Final Result Performing Organization Address City/[facility]/ZIP Co de Phone Number [facility] [place] [address] * CBC with auto differential (05/24/2024 12:29 AM HYDROMETEOROLOGY TEACHER) Pathologist [facility] WBC 9.5 3.8 - 9.9 K/cumm Hgb 12.6 11.9 - 15.5 g/dL [facility] Hct 39.0 35.6 - 45.5 % [facility] Plt 223 150 - 400 K/cumm [facility] MPV 9.6 9.1 - 12.3 fL [facility] RBC 4.23 3.90 - 5.20 M/cumm [facility] MCV 92.2 81.3 - 96.4 fL [facility] MCH 29.8 27.1 - 33.3 pg [facility] MCHC 32.3 32.3 - 35.7 g/dL [facility] RDW CV 13.7 11.1 - 14.9 % [facility] RDW SD 46.5 35.7 - 48.1 fL [facility] NRBC abs 0.00 0.00 - 0.01 K/cumm [facility] Blood 05/24/2024 12:2 9 AM HYDROMETEOROLOGY TEACHER 05/24/2024 12:54 AM HYDROMETEOROLOGY TEACHER Naila Guzman NP LAB BLOOD ORDERABLES Final Result Performing Organization Address City/[facility]/ZIP Co de Phone Number [facility] Department [place] [address] * Phosphorus (05/24/2024 12:29 AM HYDROMETEOROLOGY TEACHER) Pathologist [facility] Phosphorus, pl 3.6 2.3 - 4.5 mg/dL Blood 05/24/2024 12:2 9 AM HYDROMETEOROLOGY TEACHER 05/24/2024 12:54 AM HYDROMETEOROLOGY TEACHER Naila Guzman NP LAB BLOOD ORDERABLES Final Result [facility] Department [place] [address] * Magnesium (05/24/2024 12:29 AM HYDROMETEOROLOGY TEACHER) Pathologist [facility] Magnesium 1.9 1.4 - 2.5 mg/dL Blood 05/24/2024 12:2 9 AM HYDROMETEOROLOGY TEACHER 05/24/2024 12:54 AM HYDROMETEOROLOGY TEACHER Naila Guzman NP LAB BLOOD ORDERABLES Final Result Performing Organization Address [facility] Co de Phone Number [facility] Department [place] [address] * (ABNORMAL) Comprehensive metabolic panel (05/24/2024 12:29 AM HYDROMETEOROLOGY TEACHER) [facility] Sodium 139 135 - 145 mmol/L Potassium, pl 4.3 3.3 - 4.9 mmol/L [facility] Chloride 103 97 - 110 mmol/L [facility] CO2 29 22 - 32 mmol/L [facility] Anion gap 7 2 - 15 mmol/L [facility] BUN 19 6 - 25 mg/dL [facility] Creatinine 0.75 0.60 - 1.10 mg/dL [facility] Glucose 157 70 - 199 mg/dL [facility] Comment: Interpretive Data Fasting glucose >/= [...] 2022. Calcium 9.2 8.5 - 10.3 mg/dL [facility] Bilirubin, total 0.4 0.1 - 1.2 mg/dL [facility] Protein, pl 7.1 6.5 - 8.5 g/dL [facility] Albumin 3.3(L) 3.5 - 5.0 g/dL [facility] Alk phos 65 40 - 130 Units/L [facility] ALT 18 7 - 45 Units/L [facility] AST 17 10 - 45 Units/L [facility] Blood 05/24/2024 12:2 9 AM HYDROMETEOROLOGY TEACHER 05/24/2024 12:54 AM HYDROMETEOROLOGY TEACHER Naila Guzman [employer] LAB BLOOD ORDERABLES Final Result Performing Organization Address [facility] Co de Phone Number [facility] [employer] [place] [address] * POCT glucose (05/23/2024 8:16 PM HYDROMETEOROLOGY TEACHER) Glucose, POC 145 70 - 199 mg/dL Blood 05/23/2024 8:16 PM HYDROMETEOROLOGY TEACHER 05/23/2024 8:16 PM HYDROMETEOROLOGY TEACHER Result [facility] Carlos Real MD LAB POCT ORDERABLES - DEVICE Fin al Result Performing Organization Address City/[facility] Co de Phone Number [facility] [employer] [place] [address] * POCT glucose (05/23/2024 6:14 PM HYDROMETEOROLOGY TEACHER) Glucose, POC 181 70 - 199 mg/dL Blood 05/23/2024 6:14 PM HYDROMETEOROLOGY TEACHER 05/23/2024 6:14 PM HYDROMETEOROLOGY TEACHER Carlos Real MD LAB POCT ORDERABLES - DEVICE Fin al Result Performing Organization Address [facility] Co de Phone Number [facility] [employer] [place] [address] * POCT glucose (05/23/2024 12:17 PM HYDROMETEOROLOGY TEACHER) Glucose, POC 159 70 - 199 mg/dL Blood 05/23/2024 12:1 7 PM HYDROMETEOROLOGY TEACHER 05/23/2024 12:17 PM HYDROMETEOROLOGY TEACHER us Cem Knapp MD LAB POCT ORDERABLES - DEVIC E Final Result [facility] Department [place] [address] * US Vein Duplex Lower Extremity Bilateral Complete (05/23/2024 11:45 AM HYDROMETEOROLOGY TEACHER) LV EF % CONS SCIMAGE Anatomical Region Laterality Modality Vascular Bilateral Ultrasound 05/23/2024 11:1 2 AM HYDROMETEOROLOGY TEACHER Narrative 05/23/2024 9:[address] [facility] - Department of Vascular Surgery, Vascular Laboratory [address] [place] [address] Lower Extremity Venous Ultrasound Report Patient Name: MOHSEN MARQUES M : 1955 (68y 11m) Study Date: 05/23/2024 11:12:03 AM Gender: F Tech: VELVET Location: [id number] Ref Provider: CARLOS REAL Quality: Adequate Order Provider: CARLOS REAL PROCEDURES: Vascular Report: Venous Duplex imaging was performed bilaterally in the lower extremities. The common femoral, femoral, popliteal, posterior tibial, peroneal veins were evaluated for patency, spontaneity and phasicity with Doppler, compression and augmentation maneuvers. Great saphenous vein proximal at the junction was evaluated with compression maneuvers. INDICATIONS: Localized edema. FINDINGS: Performing [employer] Assistant: Marlys Castillo RVT. Bilateral: Venous Doppler signals [...] Vu Obregon MD FACS 05/23/2024 9:42:19 PM HYDROMETEOROLOGY TEACHER Procedure Note Vu Obregon MD - 05/23/2024 [facility] - Department of Vascular Surgery,Vascular Laboratory [address] [place] [address] Lower Extremity Venous Ultrasound Report Patient Name: MOHSEN MARQUES M : 1955 (68y 11m) Study Date: 05/23/2024 11:12:03 AM Gender: F Tech: VELVET Location: [id number] Ref Provider: CARLOS REAL Quality: Adequate Order Provider: CARLOS REAL PROCEDURES: Vascular Report: Venous Duplex imaging was performed bilaterally in the lower extremities.The common femoral, femoral, popliteal, posterior tibial, peroneal veins wereevaluated for patency, spontaneity and phasicity with Doppler, compression and augmentationmaneuvers. Great saphenous vein proximal at the junction was evaluated with compressionmaneuvers. INDICATIONS: Localized edema. FINDINGS: Performing [employer] Assistant: Marlys Castillo RVT. Bilateral: Venous Doppler signals [...] Vu Obregon MD, FACS 05/23/2024 9:42:19 PM HYDROMETEOROLOGY TEACHER us Carlosmady Real MD [facility] US PROCEDURES Final Result * (ABNORMAL) POCT glucose (05/23/2024 8:16 AM HYDROMETEOROLOGY TEACHER) Glucose, POC 204(H) 70 - 199 mg/dL Blood 05/23/2024 8:16 AM HYDROMETEOROLOGY TEACHER 05/23/2024 8:16 AM HYDROMETEOROLOGY TEACHER Cem Knapp MD LAB POCT ORDERABLES - DEVIC E Final Result [facility] Department [place] [address] * (ABNORMAL) Differential, auto (05/23/2024 2:30 AM HYDROMETEOROLOGY TEACHER) Pathologist [facility] Neutrophil abs 8.0(H) 1.5 - 6.5 K/cumm Imm gran abs 0.1 0.0 - 0.1 K/cumm [facility] Lymphocyte abs 2.6 0.8 - 3.3 K/cumm [facility] Monocyte abs 1.0(H) 0.2 - 0.8 K/cumm [facility] Eosinophil abs 0.3 0.0 - 0.5 K/cumm [facility] Basophil abs 0.0 0.0 - 0.1 K/cumm [facility] Neutrophil pct 66.5 % [facility] Comment: Interpretive Data Percent cell count reference ranges are not reported, since discordance with absolute values may lead to misinterpretation of CBC data. Current Interpretive Data was last revised on 2017. Imm gran pct 0.5 % [facility] Comment: Interpretive Data Percent cell count reference ranges are not reported, since discordance with absolute values may lead to misinterpretation of CBC data. Current Interpretive Data was last revised on 2017. Lymphocyte pct 21.9 % [facility] Comment: Interpretive Data Percent cell count reference ranges are not reported, since discordance with absolute values may lead to misinterpretation of CBC data. Current Interpretive Data was last revised on 2017. Monocyte pct 8.5 % [facility] Comment: Interpretive Data Percent cell count reference ranges are not reported, since discordance with absolute values may lead to misinterpretation of CBC data. Current Interpretive Data was last revised on 2017. Eosinophil pct 2.3 % [facility] Comment: Interpretive Data Percent cell count reference ranges are not reported, since discordance with absolute values may lead to misinterpretation of CBC data. Current Interpretive Data was last revised on 2017. Basophil pct 0.3 % [facility] Comment: Interpretive Data Percent cell count reference ranges are not reported, since discordance with absolute values may lead to misinterpretation of CBC data. Current Interpretive Data was last revised on 2017. Blood 05/23/2024 2:30 AM HYDROMETEOROLOGY TEACHER 05/23/2024 1:03 AM HYDROMETEOROLOGY TEACHER us Naila Guzman NP LAB BLOOD ORDERABLES Final Result [facility] Department [place] [address] * (ABNORMAL) CBC with auto differential (05/23/2024 2:30 AM HYDROMETEOROLOGY TEACHER) WBC 11.9(H) 3.8 - 9.9 K/cumm Hgb 12.8 11.9 - 15.5 g/dL [facility] Hct 39.6 35.6 - 45.5 % [facility] Plt 254 150 - 400 K/cumm [facility] MPV 9.7 9.1 - 12.3 fL [facility] RBC 4.43 3.90 - 5.20 M/cumm [facility] MCV 89.4 81.3 - 96.4 fL [facility] MCH 28.9 27.1 - 33.3 pg [facility] MCHC 32.3 32.3 - 35.7 g/dL [facility] RDW CV 13.7 11.1 - 14.9 % [facility] RDW SD 44.6 35.7 - 48.1 fL [facility] NRBC abs 0.00 0.00 - 0.01 K/cumm [facility] Blood 05/23/2024 2:30 AM HYDROMETEOROLOGY TEACHER 05/23/2024 1:03 AM HYDROMETEOROLOGY TEACHER us Naila Heather Thomas [employer] LAB BLOOD ORDERABLES Final Result Performing Organization Address [facility]/ZIP Co de Phone Number [facility] [place] [address] * eGFR (05/23/2024 12:42 AM HYDROMETEOROLOGY TEACHER) eGFR 84 >=60 mL/min/1. 73 m2 Comment: [...] reviewed 2021. Blood 05/23/2024 12:4 2 AM HYDROMETEOROLOGY TEACHER 05/23/2024 1:02 AM HYDROMETEOROLOGY TEACHER Naila Guzman NP LAB BLOOD ORDERABLES Final Result Performing Organization Address [facility]/ZIP Co de Phone Number [facility] J[facility] Department [place] [address] * Type and screen (05/23/2024 12:42 AM HYDROMETEOROLOGY TEACHER) ABO Rh O Positive Dilcia, indirect Negative [facility] Blood 05/23/2024 12:4 2 AM HYDROMETEOROLOGY TEACHER 05/23/2024 12:52 AM HYDROMETEOROLOGY TEACHER Narrative [facility] - 05/23/2024 1:53 AM HYDROMETEOROLOGY TEACHER Has the patient had Daratumumab or Isatuximab in the past 6 months?->Unknown Naila Guzman NP LAB BLOOD BANK TEST ORDERA BLES Final Result Performing Organization Address [facility] [place] [address] * Uric acid (05/23/2024 12:42 AM HYDROMETEOROLOGY TEACHER) Uric acid 5.5 2.5 - 7.0 mg/dL Blood 05/23/2024 12:4 2 AM HYDROMETEOROLOGY TEACHER 05/23/2024 1:02 AM HYDROMETEOROLOGY TEACHER Narrative [facility] - 05/23/2024 1:34 AM HYDROMETEOROLOGY TEACHER Monday and only. Morning draw. . Naila Guzman NP LAB BLOOD ORDERABLES Final Result Performing Organization Address [facility] [place] [address] * Phosphorus (05/23/2024 12:42 AM HYDROMETEOROLOGY TEACHER) Pathologist [facility] Phosphorus, pl 4.4 2.3 - 4.5 mg/dL Blood 05/23/2024 12:4 2 AM HYDROMETEOROLOGY TEACHER 05/23/2024 1:02 AM HYDROMETEOROLOGY TEACHER Naila Guzman NP LAB BLOOD ORDERABLES Final Result Performing Organization Address [facility] [place] [address] * Magnesium (05/23/2024 12:42 AM HYDROMETEOROLOGY TEACHER) Magnesium 1.9 1.4 - 2.5 mg/dL Blood 05/23/2024 12:4 2 AM HYDROMETEOROLOGY TEACHER 05/23/2024 1:02 AM HYDROMETEOROLOGY TEACHER Naila Guzman NP LAB BLOOD ORDERABLES Final Result Performing Organization Address City/[facility] Co de Phone Number [facility] Department [place] [address] * Lactate dehydrogenase (LD) (05/23/2024 12:42 AM HYDROMETEOROLOGY TEACHER) [facility] Lactate dehydrogenase (LDH) 247 100 - 250 Units/L Blood 05/23/2024 12:4 2 AM HYDROMETEOROLOGY TEACHER 05/23/2024 1:02 AM HYDROMETEOROLOGY TEACHER Narrative [facility] - 05/23/2024 1:34 AM HYDROMETEOROLOGY TEACHER Monday and only. Morning draw. Naila Guzman NP LAB BLOOD ORDERABLES Final Result Performing Organization Address [facility] de Phone Number [facility] Department [place] [address] * Comprehensive metabolic panel (05/23/2024 12:42 AM HYDROMETEOROLOGY TEACHER) [facility] Sodium 136 135 - 145 mmol/L Potassium, pl 4.3 3.3 - 4.9 mmol/L [facility] Chloride 101 97 - 110 mmol/L [facility] CO2 29 22 - 32 mmol/L [facility] Anion gap 6 2 - 15 mmol/L [facility] BUN 18 6 - 25 mg/dL [facility] Creatinine 0.77 0.60 - 1.10 mg/dL [facility] Glucose 194 70 - 199 mg/dL [facility] Comment: Interpretive Data Fasting glucose >/= [...] 2022. Calcium 9.5 8.5 - 10.3 mg/dL [facility] Bilirubin, total 0.5 0.1 - 1.2 mg/dL [facility] Protein, pl 7.4 6.5 - 8.5 g/dL [facility] Albumin 3.5 3.5 - 5.0 g/dL [facility] Alk phos 71 40 - 130 Units/L [facility] ALT 19 7 - 45 Units/L [facility] AST 22 10 - 45 Units/L [facility] Blood 05/23/2024 12:4 2 AM HYDROMETEOROLOGY TEACHER 05/23/2024 1:02 AM HYDROMETEOROLOGY TEACHER us Naila Guzman NP LAB BLOOD ORDERABLES Final Result Performing Organization Address City/[facility]/ZIP Co de Phone Number [facility] Department of [employer] [place] [address] * (ABNORMAL) POCT glucose (05/22/2024 8:56 PM HYDROMETEOROLOGY TEACHER) Glucose, POC 210(H) 70 - 199 mg/dL Blood 05/22/2024 8:56 PM HYDROMETEOROLOGY TEACHER 05/22/2024 8:56 PM HYDROMETEOROLOGY TEACHER us Cem Knapp MD LAB POCT ORDERABLES - DEVIC E Final Result Performing Organization Address [facility] Co de Phone Number [facility] Department of [employer] [place] [address] * POCT glucose (05/22/2024 6:09 PM HYDROMETEOROLOGY TEACHER) Glucose, POC 142 70 - 199 mg/dL Blood 05/22/2024 6:09 PM HYDROMETEOROLOGY TEACHER 05/22/2024 6:09 PM HYDROMETEOROLOGY TEACHER us Leo Henry MD LAB POCT ORDERABLES - NILESH CE Final Result Performing Organization Address City/[facility]/ZIP Co de Phone Number [facility] Department [place] [address] * POCT glucose (05/22/2024 4:26 PM HYDROMETEOROLOGY TEACHER) Glucose, POC 133 70 - 199 mg/dL Blood 05/22/2024 4:26 PM HYDROMETEOROLOGY TEACHER 05/22/2024 4:26 PM HYDROMETEOROLOGY TEACHER Leo Henry MD LAB POCT ORDERABLES - NILESH CE Final Result Performing Organization Address City/State/ZIP Co ny Phone Number [facility] Department [place] [address] * CT Abdomen Pelvis W Contrast (05/22/2024 2:32 PM HYDROMETEOROLOGY TEACHER) Anatomical Region Laterality Modality Body N/A Computed Tomogra phy 05/22/2024 4:35 PM HYDROMETEOROLOGY TEACHER Impressions 05/22/2024 5:16 PM HYDROMETEOROLOGY TEACHER No acute findings within the abdomen or pelvis. Dictated by: Yesi Mendes M.D. The radiology attending physician has personally reviewed this study, and had reviewed and/or edited this written report and agrees with it. Electronically signed by: Kelli Palmer M.D. Narrative 05/22/2024 5:16 PM HYDROMETEOROLOGY TEACHER EXAMINATION: Computed tomography of the abdomen and [...] sult * POCT glucose (05/22/2024 12:58 PM HYDROMETEOROLOGY TEACHER) Glucose, POC 177 70 - 199 mg/dL Blood 05/22/2024 12:5 8 PM HYDROMETEOROLOGY TEACHER 05/22/2024 12:58 PM HYDROMETEOROLOGY TEACHER Leo Henry MD LAB POCT ORDERABLES - NILESH CE Final Result Performing Organization Address [facility] Co de Phone Number [facility] [employer] [place] [address] * (ABNORMAL) POCT glucose (05/22/2024 9:29 AM HYDROMETEOROLOGY TEACHER) Glucose, POC 291(H) 70 - 199 mg/dL Blood 05/22/2024 9:29 AM HYDROMETEOROLOGY TEACHER 05/22/2024 9:29 AM HYDROMETEOROLOGY TEACHER Leo Henry MD LAB POCT ORDERABLES - NILESH CE Final Result Performing Organization Address [facility] Co de Phone Number [facility] [employer] [place] [address] * POCT glucose (05/22/2024 6:54 AM HYDROMETEOROLOGY TEACHER) Glucose, POC 142 70 - 199 mg/dL Blood 05/22/2024 6:54 AM HYDROMETEOROLOGY TEACHER 05/22/2024 6:54 AM HYDROMETEOROLOGY TEACHER Jimmie Zavala MD LAB POCT ORDERABLES - DEVICE Fin al Result Performing Organization Address [facility] Co de Phone Number [facility] [place] [address] * CT Chest PE (CTA) W Contrast (05/22/2024 1:31 AM HYDROMETEOROLOGY TEACHER) Anatomical Region Laterality Modality Body N/A Computed Tomogra phy 05/22/2024 2:38 AM HYDROMETEOROLOGY TEACHER Impressions 05/22/2024 9:12 AM HYDROMETEOROLOGY TEACHER No pulmonary embolism. Dictated by: Miguel Milligan MD The radiology attending physician has personally reviewed this study, and had reviewed and/or edited this written report and agrees with it. Electronically signed by: Jayson Rockwell M.D. Narrative 05/22/2024 9:12 AM HYDROMETEOROLOGY TEACHER EXAMINATION: CT CHEST PE (CTA) W CONTRAST [...] Result * D-dimer, quantitative (05/22/2024 12:24 AM HYDROMETEOROLOGY TEACHER) D-Dimer 414 <=499 ng/mL FEU Comment: Interpretive [...] on 2019. Blood 05/22/2024 12:2 4 AM HYDROMETEOROLOGY TEACHER 05/22/2024 12:42 AM HYDROMETEOROLOGY TEACHER Angeline Soler MD LAB BLOOD ORDERABLES F inal Result Performing Organization Address City/[facility] Co de Phone Number [facility] Department [place] [address] * Troponin I high-sensitivity 2-hour (05/21/2024 11:09 PM HYDROMETEOROLOGY TEACHER) Trop I hs 5 <=17 ng/L Comment: Interpretive Data For further hscTnI resources including the diagnostic algorithm and an aid in interpretation, copy and paste this link: https://bjhlab.testcatalog.org/show/hsTrop-[email or web address] Current Interpretive Data last revised 2019. Trop I hs delta See Comment ng/L [facility] Comment:Inappropriate collec tion time to report a delta. Trop I hs pct delta See Comment % [facility] Comment:Inappropriate collec tion time to report a delta. Trop I hs interp See Comment [facility] Comment:Inappropriate collec tion time to report a delta. Blood 05/21/2024 11:0 9 PM HYDROMETEOROLOGY TEACHER 05/21/2024 11:26 PM HYDROMETEOROLOGY TEACHER Cira Castro MD LAB BLOOD ORDERABL ES Final Result Performing Organization Address [facility] Co de Phone Number [facility] Department [place] [address] * (ABNORMAL) Urinalysis reflex to microscopic and culture Urine (05/21/2024 11:09 PM HYDROMETEOROLOGY TEACHER) Color, ur Yellow Yellow Clarity, ur Clear Clear [facility] Specific gravity, ur 1.025 1.003 - 1.030 [facility] pH, urine 6.0 [facility] Comment: Interpretive Data U rine pH is affected by diet, medications, systemic acid-base disturbances, and renal tubular function. pH may affect urinary stone formation. For example, urine pH below 6.0 may help reduce the tendency for calcium phosphate stones and pH greater than 6.0 may reduce the tendency for uric acid stone formation. Source: [facility] Current Interpretive Data was last revised on 2017 Protein, ur ql 1+(A) Negative [facility] Glucose, ur ql Negative Negative [facility] Ketones, ur Negative Negative [facility] Bilirubin, ur Negative Negative [facility] Blood, ur Trace(A) Negative [facility] Urobilinogen, ur <2.0 <2.0 mg/dL [facility] Nitrite, ur Positive(A) Negative [facility] Leukocyte esterase, ur 1+(A) Negative [facility] UA reflex comment Reflex to microscopic UA will be performed. [facility] Urine 05/21/2024 11:0 9 PM HYDROMETEOROLOGY TEACHER 05/21/2024 11:22 PM HYDROMETEOROLOGY TEACHER Angeline Soler MD LAB MICROBIOLOGY - GEN ERAL ORDERABLES Final Result [facility] Department [place] [address] * Respiratory pathogen panel Nasopharyngeal (05/21/2024 11:09 PM HYDROMETEOROLOGY TEACHER) Pathologist [facility] Influenza A RNA Not Detected Not Detected Influenza B RNA Not Detected Not Detected [facility] RSV RNA Not Detected Not Detected [facility] COVID-19 RNA Not Detected Not Detected [facility] Coronavirus 229E RNA Not Detected Not Detected [facility] Coronavirus HKU1 RNA Not Detected Not Detected [facility] Coronavirus NL63 RNA Not Detected Not Detected [facility] Coronavirus OC43 RNA Not Detected Not Detected [facility] Adenovirus DNA Not Detected Not Detected [facility] Metapneumovirus RNA Not Detected Not Detected [facility] Rhinovirus/Enterov irus RNA Not Detected Not Detected [facility] Parainfluenza 1 RNA Not Detected Not Detected [facility] Parainfluenza 2 RNA Not Detected Not Detected [facility] Parainfluenza 3 RNA Not Detected Not Detected [facility] Parainfluenza 4 RNA Not Detected Not Detected [facility] B. pertussis DNA Not Detected Not Detected [facility] B. parapertussis DNA Not Detected Not Detected [facility] C. pneumoniae DNA Not Detected Not Detected [facility] M. pneumoniae DNA Not Detected Not Detected [facility] Nasopharyngeal 05/21/2024 11 :09 PM HYDROMETEOROLOGY TEACHER 05/22/2024 4:48 AM HYDROMETEOROLOGY TEACHER Narrative [facility] - 05/22/2024 5:55 AM HYDROMETEOROLOGY TEACHER Is the Patient experiencing symptoms consistent with COVID?->No Surveillance testing for transplant patient?->No Interpretive Data The [employer] FilmArray Respiratory Panel (RP2.1) assay is a [...] assay has FDA clearance for testing of [employer] swabs. The performance of additional specimen types has been assessed by the performing laboratory. The performance characteristics of this assay have been determined by [facility]. Current interpretive data was last revised on 22. Angeline Soler MD LAB MICROBIOLOGY - GEN ERAL ORDERABLES Final Result Performing Organization Address [facility] Co de Phone Number [facility] Department of [employer] [place] [address] * (ABNORMAL) Urinalysis, microscopic only (05/21/2024 11:09 PM HYDROMETEOROLOGY TEACHER) WBC, ur 11-20(A) 0 - 5 /HPF RBC, ur 3-5(A) 0 - 2 /HPF [facility] Epithelial cells, squamous, ur 1-5 0 - 5 /HPF [facility] Bacteria, ur 3+(A) [facility] Yeast, ur Trace(A) [facility] Mucous, ur Present(A) [facility] Culture Reflex Comment Reflex to urine culture will be performed. [facility] Urine 05/21/2024 11:0 9 PM HYDROMETEOROLOGY TEACHER 05/21/2024 11:21 PM HYDROMETEOROLOGY TEACHER Angeline Soler MD LAB URINE ORDERABLES F inal Result Performing Organization Address [facility] Co de Phone Number [facility] [place] [address] * (ABNORMAL) Urine culture Urine (05/21/2024 11:09 PM HYDROMETEOROLOGY TEACHER) Report Amended Report - Complete: Greater than or equal to 100,000 colonies/mL of Escherichia coli Plus growth of clinically insignificant bacterial yesenia. (.) Organism ESCHERICHIA COLI [facility] Organism PLUS GROWTH OF CLINICALLY INSIGNIFICANT YESENIA. [facility] Urine 05/21/2024 11:0 9 PM HYDROMETEOROLOGY TEACHER 05/22/2024 2:40 AM HYDROMETEOROLOGY TEACHER Narrative [facility] - 05/25/2024 10:36 AM HYDROMETEOROLOGY TEACHER Urine culture reflexed based upon urinalysis results. Testing performed by [facility] ([phone]) Organism Antibiotic Method Susceptibility Escherichia coli Ampicillin [...] Edited Result - Final Performing Organization Address City/[facility]/ZIP Co de Phone Number [facility] Department [place] [address] * POCT glucose (05/21/2024 8:55 PM HYDROMETEOROLOGY TEACHER) Glucose, POC 139 70 - 199 mg/dL Blood 05/21/2024 8:55 PM HYDROMETEOROLOGY TEACHER 05/21/2024 8:55 PM HYDROMETEOROLOGY TEACHER us Notinfile Unknown LAB POCT ORDERABLES - DEVICE F inal Result Performing Organization Address [facility]/[place] [address] * Troponin I high-sensitivity 4-hour (05/21/2024 7:26 PM HYDROMETEOROLOGY TEACHER) [facility] Trop I hs 4 <=17 ng/L Comment: Interpretive Data For further hscTnI resources including the diagnostic algorithm and an aid in interpretation, copy and paste this link: https://Motopia.Tour [email or web address]/show/hsTrop-1 Current Interpretive Data last revised 2019. Trop I hs delta -1 ng/L [facility] Trop I hs interp Insignificant [facility] [place] Blood 05/21/2024 7:26 PM HYDROMETEOROLOGY TEACHER 05/21/2024 7:37 PM HYDROMETEOROLOGY TEACHER us Cira Castro MD LAB BLOOD ORDERABL ES Final Result Performing Organization Address [facility] Co de Phone Number [facility] [place] [address] * Troponin I high-sensitivity series (baseline, 2hr, 4hr, 6hr) (05/21/2024 4:20 PM HYDROMETEOROLOGY TEACHER) [facility] Trop I hs 5 <=17 ng/L Comment: Interpretive Data For further hscTnI resources including the diagnostic algorithm and an aid in interpretation, copy and paste this link: https://Motopia.Tour Engine.org/show/hsTrop-1 Current Interpretive Data last revised 2019. Blood 05/21/2024 4:20 PM HYDROMETEOROLOGY TEACHER 05/21/2024 4:50 PM HYDROMETEOROLOGY TEACHER us Jimmie Zavala MD LAB BLOOD ORDERABLES Final Resul t Performing Organization Address City/[facility]/ZIP Co de Phone Number [facility] [place] [address] * eGFR (05/21/2024 4:20 PM HYDROMETEOROLOGY TEACHER) [facility] eGFR >90 >=60 mL/min/1. 73 m2 [...] last reviewed 2021. Blood 05/21/2024 4:20 PM HYDROMETEOROLOGY TEACHER 05/21/2024 4:50 PM HYDROMETEOROLOGY TEACHER us Jimmie Zavala MD LAB BLOOD ORDERABLES Final Resul t [facility] Department of Laboratories [place], [place] [id number] * (ABNORMAL) Differential, auto (05/21/2024 4:20 PM HYDROMETEOROLOGY TEACHER) Pathologist [facility] Neutrophil abs 8.0(H) 1.5 - 6.5 K/cumm Imm gran abs 0.0 0.0 - 0.1 K/cumm [facility] Lymphocyte abs 2.4 0.8 - 3.3 K/cumm [facility] Monocyte abs 0.8 0.2 - 0.8 K/cumm [facility] Eosinophil abs 0.2 0.0 - 0.5 K/cumm [facility] Basophil abs 0.0 0.0 - 0.1 K/cumm [facility] Neutrophil pct 69.4 % [facility] Comment: Interpretive Data Percent cell count reference ranges are not reported, since discordance with absolute values may lead to misinterpretation of CBC data. Current Interpretive Data was last revised on 2017. Imm gran pct 0.4 % [facility] Comment: Interpretive Data Percent cell count reference ranges are not reported, since discordance with absolute values may lead to misinterpretation of CBC data. Current Interpretive Data was last revised on 2017. Lymphocyte pct 21.4 % [facility] Comment: Interpretive Data Percent cell count reference ranges are not reported, since discordance with absolute values may lead to misinterpretation of CBC data. Current Interpretive Data was last revised on 2017. Monocyte pct 6.7 % [facility] Comment: Interpretive Data Percent cell count reference ranges are not reported, since discordance with absolute values may lead to misinterpretation of CBC data. Current Interpretive Data was last revised on 2017. Eosinophil pct 1.8 % [facility] Comment: Interpretive Data Percent cell count reference ranges are not reported, since discordance with absolute values may lead to misinterpretation of CBC data. Current Interpretive Data was last revised on 2017. Basophil pct 0.3 % [facility] Comment: Interpretive Data Percent cell count reference ranges are not reported, since discordance with absolute values may lead to misinterpretation of CBC data. Current Interpretive Data was last revised on 2017. Blood 05/21/2024 4:20 PM HYDROMETEOROLOGY TEACHER 05/21/2024 4:50 PM HYDROMETEOROLOGY TEACHER us Jimmie Zavala MD LAB BLOOD ORDERABLES Final Resul t [facility] Department [place] [address] * (ABNORMAL) CBC with auto differential (05/21/2024 4:20 PM HYDROMETEOROLOGY TEACHER) WBC 11.4(H) 3.8 - 9.9 K/cumm Hgb 14.0 11.9 - 15.5 g/dL [facility] Hct 43.6 35.6 - 45.5 % [facility] Plt 286 150 - 400 K/cumm [facility] MPV 9.9 9.1 - 12.3 fL [facility] RBC 4.83 3.90 - 5.20 M/cumm [facility] MCV 90.3 81.3 - 96.4 fL [facility] MCH 29.0 27.1 - 33.3 pg [facility] MCHC 32.1(L) 32.3 - 35.7 g/dL [facility] RDW CV 13.6 11.1 - 14.9 % [facility] RDW SD 45.6 35.7 - 48.1 fL [facility] NRBC abs 0.00 0.00 - 0.01 K/cumm [facility] Blood Venous blood specimen / Unknown 05/21/2024 4:20 PM HYDROMETEOROLOGY TEACHER 05/21/2024 4:50 PM HYDROMETEOROLOGY TEACHER us Jimmie Zavala MD LAB BLOOD ORDERABLES Final Resul t Performing Organization Address City/[facility] Co de Phone Number [facility] [address] * (ABNORMAL) Hemoglobin A1c (05/21/2024 4:20 PM HYDROMETEOROLOGY TEACHER) Hgb A1C 8.7(H) 4.0 - 5.6 % Estimated Average Glucose 203 mg/dL [facility] Comment: The ADA recommends reporting an estimated Average Glucose (eAG) with all Hemoglobin A1c results using the equation derived from a study of 507 normal and diabetic adults. Minority populations were underrepresented and children were not included. (Diabetes Care 2020; 43(S1): S66-S76). The eAG is not equivalent to a fasting glucose. Blood 05/21/2024 4:20 PM HYDROMETEOROLOGY TEACHER 05/21/2024 4:55 PM HYDROMETEOROLOGY TEACHER us Leo Henry MD LAB BLOOD ORDERABLES Final Result Performing Organization Address City/[facility]/ZIP Co de Phone Number [facility] [employer] [place], [place] [id number] * (ABNORMAL) Lipid panel (05/21/2024 4:20 PM HYDROMETEOROLOGY TEACHER) Cholesterol 205(H) 30 - 199 mg/dL Comment: [...] revised on 2017. Triglycerides 92 <=149 mg/dL [facility] Comment: Interpretive Data Ages < or [...] revised on 2017. HDL 55 >=40 mg/dL [facility] Comment: Interpretive Data Ages < or [...] on 2017. LDL, calculated 134(H) <=129 mg/dL [facility] Comment: Interpretive Data Ages < or [...] revised on 2023. Non-HDL Cholesterol 150 mg/dL [facility] Comment: Interpretive Data Ages < or [...] last revised on 2017. Chol/HDL ratio 4 [facility] Blood 05/21/2024 4:20 PM HYDROMETEOROLOGY TEACHER 05/21/2024 4:50 PM HYDROMETEOROLOGY TEACHER Narrative [facility] - 05/22/2024 4:17 PM HYDROMETEOROLOGY TEACHER Reflex us Leo Henry MD LAB BLOOD ORDERABLES Final Result [facility] Department [place] [address] * Comprehensive metabolic panel (05/21/2024 4:20 PM HYDROMETEOROLOGY TEACHER) Sodium 140 135 - 145 mmol/L Potassium, pl 4.3 3.3 - 4.9 mmol/L [facility] Chloride 100 97 - 110 mmol/L [facility] CO2 29 22 - 32 mmol/L [facility] Anion gap 11 2 - 15 mmol/L [facility] BUN 14 6 - 25 mg/dL [facility] Creatinine 0.63 0.60 - 1.10 mg/dL [facility] Glucose 119 70 - 199 mg/dL [facility] Comment: Interpretive Data Fasting glucose >/= [...] 2022. Calcium 10.0 8.5 - 10.3 mg/dL [facility] Bilirubin, total 0.7 0.1 - 1.2 mg/dL [facility] Protein, pl 8.5 6.5 - 8.5 g/dL [facility] Albumin 3.9 3.5 - 5.0 g/dL [facility] Alk phos 83 40 - 130 Units/L [facility] ALT 23 7 - 45 Units/L [facility] AST 22 10 - 45 Units/L [facility] Blood 05/21/2024 4:20 PM HYDROMETEOROLOGY TEACHER 05/21/2024 4:50 PM HYDROMETEOROLOGY TEACHER us Jimmie Zavala MD LAB BLOOD ORDERABLES Final Resul t [facility] Department [place] [address] * XR Chest Pa Lateral 2 Views (05/21/2024 2:23 PM HYDROMETEOROLOGY TEACHER) Anatomical Region Laterality Modality Body, Chest N/A Computed Radiogr aphy 05/21/2024 2:28 PM HYDROMETEOROLOGY TEACHER Impressions 05/21/2024 2:36 PM HYDROMETEOROLOGY TEACHER The current study is compared with the [...] Jaime Neves M.D. Narrative 05/21/2024 2:36 PM HYDROMETEOROLOGY TEACHER EXAMINATION: 2 view chest radiograph Procedure Note [...] Result * POCT glucose (05/21/2024 1:39 PM HYDROMETEOROLOGY TEACHER) [facility] Glucose, POC 113 70 - 199 mg/dL Blood 05/21/2024 1:39 PM HYDROMETEOROLOGY TEACHER 05/21/2024 1:39 PM HYDROMETEOROLOGY TEACHER us Notinfile Unknown LAB POCT ORDERABLES - DEVICE F inal Result [facility] Department [place] [address] * ECG 12-LEAD (05/21/2024 1:36 PM HYDROMETEOROLOGY TEACHER) Narrative [facility] - 05/21/2024 1:36 PM HYDROMETEOROLOGY TEACHER Gil Mcgrath MD 05/21/2024 1:37 PM ECG [...] Zavala MD ECG ORDERABLES Final Result [facility] * US Axillary Breast Left (05/21/2024 12:13 PM HYDROMETEOROLOGY TEACHER) Anatomical Region Laterality Modality Upper Extremities Left Ultrasound 05/21/2024 12:2 3 PM HYDROMETEOROLOGY TEACHER Impressions 05/21/2024 12:23 PM HYDROMETEOROLOGY TEACHER 1. Limited ultrasound due to extensive edema [...] Alicia Wilcox M.D. Narrative 05/21/2024 12:23 PM HYDROMETEOROLOGY TEACHER EXAMINATION: LEFT AXILLARY ULTRASOUND HISTORY: Patient is [...] culture Urine, clean voided (05/14/2024 4:50 PM HYDROMETEOROLOGY TEACHER) Color, ur Straw Yellow Clarity, ur Clear Clear [facility] Specific gravity, ur 1.025 1.003 - 1.030 [facility] pH, urine 5.5 [facility] Comment: Interpretive Data U rine pH is affected by diet, medications, systemic acid-base disturbances, and renal tubular function. pH may affect urinary stone formation. For example, urine pH below 6.0 may help reduce the tendency for calcium phosphate stones and pH greater than 6.0 may reduce the tendency for uric acid stone formation. Source: [facility] [employer] Current Interpretive Data was last revised on 2017 Protein, ur ql Trace Negative [facility] Glucose, ur ql Negative Negative [facility] Ketones, ur Negative Negative [facility] Bilirubin, ur Negative Negative [facility] Blood, ur Trace(A) Negative [facility] Urobilinogen, ur <2.0 <2.0 mg/dL [facility] Nitrite, ur Negative Negative [facility] Leukocyte esterase, ur Negative Negative [facility] UA reflex comment Reflex to microscopic UA will be performed. [facility] Urine, clean voided 05/14/2024 4:50 PM HYDROMETEOROLOGY TEACHER 05/14/2024 7:18 PM HYDROMETEOROLOGY TEACHER Khris Arthur MD LAB MICROBIOLOGY - G ENERAL ORDERABLES Final Result [facility] Department [place] [address] * (ABNORMAL) Urinalysis, microscopic only (05/14/2024 4:50 PM HYDROMETEOROLOGY TEACHER) WBC, ur 0-5 0 - 5 /HPF RBC, ur 0-2 0 - 2 /HPF [facility] Epithelial cells, squamous, ur 1-5 0 - 5 /HPF [facility] Bacteria, ur Trace(A) [facility] Mucous, ur Present(A) [facility] Culture Reflex Comment Reflex conditions for urine culture (WBC >10) not met. [facility] Urine, clean voided 05/14/2024 4:50 PM HYDROMETEOROLOGY TEACHER 05/14/2024 7:18 PM HYDROMETEOROLOGY TEACHER us Khris Arthur MD LAB URINE ORDERABLES Final Result [facility] Department [place] [address] * XR Ribs Left 2 Views (05/14/2024 4:44 PM HYDROMETEOROLOGY TEACHER) Anatomical Region Laterality Modality Rib, Chest Left Digital Radiogra phy 05/14/2024 4:54 PM HYDROMETEOROLOGY TEACHER Impressions 05/14/2024 4:54 PM HYDROMETEOROLOGY TEACHER 1. No displaced left rib fracture. Electronically signed by: Santiago Gan D.O. Narrative 05/14/2024 4:54 PM HYDROMETEOROLOGY TEACHER EXAMINATION: XR RIBS LEFT 2 VIEWS HISTORY: [...] Bone mineral density was performed on a HoloAxxana Discovery Densitometer. Based on machine cross-calibration and [...] by the International Society of Clinical Densitometry. [id number] Khris Arthur MD IMG DXA PROCEDURES F [...] agrees with it. ACC# Date Time Exam [id number] Aug 19, 2016 14:27:00 [facility] [address]98[address] Diag Mamm, inc CAD, unilat L Technologist(s): Carla Harris; ; [id number] Aug 19, 2016 15:39:00 [facility] [id number] Breast US unilateral, ltd L ACC# Date Time Exam [id number] Aug 19, 2016 14:27:00 [facility] 34440 Diag Mamm, inc CAD, unilat L Technologist(s): Carla Harris; ; [id number] Aug 19, 2016 15:39:00 [facility] [id number] Breast US unilateral, ltd L EXAMINATION: LEFT [...] SARABIA M.D. on Aug 19 2016 4:20P [id number] Procedure Note Miscellaneous, Not In File / Provider, MD Tyler - 09/17/2016 ANTHONY SARABIA M.D. JUDY RINCON M.D. FINAL REPORT The radiology attending physician has personally reviewed this study, and has reviewed and/or edited this written report and agrees with it. ACC# Date Time Exam [id number] Aug 19, 2016 14:27:00 [facility] 62915 Diag Mamm, inc CAD, unilat L Technologist(s): Carla Harris; ; [id number] Aug 19, 2016 15:39:00 [facility] [id number] Breast US unilateral, ltd L ACC# Date Time Exam [id number] Aug 19, 2016 14:27:00 [facility] 50525 Diag Mamm, inc CAD, unilat L Technologist(s): Carla Harris; ; [id number] Aug 19, 2016 15:39:00 [facility] [id number] Breast US unilateral, ltd L EXAMINATION: LEFT [...] SARABIA M.D. on Aug 19 2016 4:20P [id number] us Not In File Miscellaneous IMG MAMMO PROCEDURES F inal Result from Last 3 Months or Most Recently Relevant to Health Maintenance Insurance [facility] UHC MEDICARE ADVANTAGE [facility] MEDICARE ADVANTAGE [facility] MEDICARE ADVANTAGE Advance Directives For more information, please contact: [phone] Documents on File Type Date Recorded Patient Ruby Engineer Expl anation ADVANCE DIRECTIVE 12/23/2021 2:49 PM Power of Taxation Consultant-Medical ADVANCE DIRECTIVE 12/23/2021 2:49 PM Living Will [...] First Alternate Health Care Agent Care Teams Sales Correspondence Clerk Relationship Specialty Start Date End Date Justen Gale MD [address] [address] PCP - General 10/09/17 Liu Jerez MD Consulting Physician Gastroenterology 07/28/17 [place] [address] [facility] [address] [place] [address] Consulting Physician Pulmonary Disease 08/03/17 Khris Arthur MD [address] [facility] [address] [place] [address] Medical Oncologist/Injection Mold Tooling Technician Medical Oncology 10/23/17 [place] [address] [facility] [address] [place] [address] Surgeon Orthopedic Surgery 10/23/17 [place] [address] [facility] [address] [place] [address] Consulting Physician Pain Management 10/23/17 [place] [address] [facility] [address] [place] [address] Referring Physician General Surgery 01/26/18 [place] [address] [facility] [address] [place] [address] Consulting Physician Neurology 01/26/18
--- OUTSIDE RECORDS SUMMARY | 2024-08-07 16:34 | XMS_ITS | Encounter Summary ---
Author Organization [facility] Address [address] [place] [address] Phone Care Team Providers Care Staffing Account Manager Name Role Phone Justen Gale MD Primary Care Provider [phone] David Roberts APRN, SITE SAFETY MANAGER Unavailable [phone] Annel Rod MD Unavailable Reason for Visit * Reason Onset Date Comments Sore Throat 06/29/2020 Encounter Details Date Type Department Care Team (Late st Contact Info) Description 06/29/2020 Telephone [facility] [address] [place] [address] Justen Gale MD [address] [address] Sore Throat Social History Tobacco Use Types [...] COVID-19? No / Unsure 06/29/2020 8:43 AM BURNER OPERATOR documented as of this encounter Miscellaneous Notes * Telephone Encounter - Gail Lucero RN - 06/29/2020 3:53 PM CST Attempted to call mailbox is full. Pt does not need testing ER OPERATOR * Telephone Encounter - Vince Hermosillo MD - 06/29/2020 3:13 PM CST No covid testing needed. If the er thought that it was warranted then they would have done this. ER OPERATOR * Telephone Encounter - Marlys Sorensen RN - 06/29/2020 8:36 AM CST Patient calling. Patient is calling to schedule Hospital/ED/Prompt-Care follow up appointment. Hospital/ED/[facility] Site: [facility] ED Records Requested: Yes Reason [...] f/up and yearly PAP appointments? Please advise. ER OPERATOR documented in this encounter Plan of Treatment Upcoming Encounters Date Type Department Care Team (Late st Contact Info) Description 09/18/2024 2:45 PM CDT Office Visit [facility] - Endocrinology [facility] [address] [place] [address] Annel Rod MD #2 [facility] [address] [place] [address] documented as of this encounter Visit Diagnoses Not on filedocumented in this encounter Additional Health Concerns Infection Onset Date Last Indicated Resolved Time COVID - 19 08/01/2024 08/01/2024 08/01/2024 3:20 PM CDT Assessment Noted Time PHQ-9 Depression Total Score: 0 09/08/19 1:00 PM CDT documented as of this encounter Care Teams Staffing Account Manager Relationship Specialty Start Date End Date Justen Gale MD [address]2 [facility] [address] [place] [address] PCP - General Family Medicine 10/17/17 David Roberts APRN, NETTA [address] [place] [address] Nurse Practitioner Advanced Practice Nurse 01/31/22 Annel Rod MD [address] [address] Consulting Physician Endocrinology 07/01/22 documented as of this encounter
--- OUTSIDE RECORDS SUMMARY | 2024-08-07 16:35 | XMS_ITS | Clinical Summary ---
Author Organization [facility] Address [address] [place] [address] Phone Care Team Providers Care Custom Van Converter Name Role Phone Justen Gale MD Primary Care Provider [phone] David Roberts APRN, WATER REUSE PROGRAM MANAGER Unavailable [phone] Annel Rod MD Unavailable Allergies Active Allergy [...] frequency: 4 times a day 1 Each 11/22/19 18 Active Glucose Blood (ONE TOUCH ULTRA TEST) Strip Test four times daily. 400 Strip 3 02/11/20 20 Active Misc. Devices MiscIndication s:LUL (obstructive sleep apnea) Supply and instructions: 1 Each 09/10/19 21 Active OneTouch Delica Lancets 33G Misc 1 Lancet by Does not apply route 4 times daily. 400 Lancet 3 03/09/20 21 Active naloxone HCl (Narcan) 4 MG/0.1ML Liquid 05/13/19 22 Active diphenhydrAMIN E (BENADRYL) 25 MG Capsule Take 25 mg by mouth every 6 hours as needed. Active B-D ULTRAFINE III SHORT PEN 31G X 8 MM Misc USE 6 TIMES DAILY DIRECTED 300 Pen Needle 1 06/16/19 23 Active oxybutynin (DITROPAN XL) 15 MG TABLET SR 24 HR Take 10 mg by mouth daily. 06/29/19 23 Active HumaLOG KwikPen 100 UNIT/ML Solution Pen-injector ADMINSTER 22 UNITS UNDER THE SKIN BEFORE EACH MEAL, ISF OF 1:15 OF IF> 150MG/DL MAX DAILY DOSE OF 100 UNITS 30 mL 1 03/07/20 23 Active Additional Information Patient taking differently: 28 Units Subcutaneous 3 TIMES DAILY BEFORE MEALS, ADMINSTER 28 UNITS UNDER THE SKIN BEFORE EACH MEAL, ISF OF 1:15 OF IF> 150MG/DL MAX DAILY DOSE OF 100 UNITS, Reported on 08/07/2024 Continuous Blood Gluc Sensor (FreeStyle Eileen 2 Sensor) [facility] [place] SENSOR AND WEAR FOR 14 DAYS TO CHECK BLOOD SUGAR 6 Each 1 08/07/19 24 Active albuterol 108 (90 Base) MCG/ACT Aerosol Solution take 2 Puffs by inhalation. 04/19/20 21 Active gabapentin (NEURONTIN) 300 MG Capsule Take 300 mg by mouth. 06/20/19 24 Active HYDROcodone-ac etaminophen (NORCO) 10-325 MG Tablet Take 1 Tablet by mouth. 12/28/19 24 Active Multiple Vitamins-Physician Representative als (WOMENS MULTI PO) Take by mouth. Activ e Calcium Citrate-Vitami n D (CALCIUM + D PO) Take by mouth. Activ e rOPINIROLE (REQUIP) 5 MG Tablet Take 1 Tablet by mouth nightly. 90 Tablet 2 04/25/19 25 Active ondansetron (Zofran) 4 MG Tablet Take 1 Tablet by mouth every 8 hours as needed for Nausea - 1st line. 15 Tablet 04/25/19 25 Active Continuous Glucose Sensor (FreeStyle Eileen 2 Sensor) [facility] [place] Each by Does not apply route every 14 days. Change sensor every 14 days. E11.42, insulin dependent 6 Each 1 04/25/19 25 Active Continuous Glucose Sensor (FreeStyle Eileen 2 Sensor) [facility] [place] Each by Does not apply route every 14 days. 6 Each 1 08/03/19 25 Active predniSONE (DELTASONE) 10 MG Tablet Take 1 Tablet by mouth daily for 7 days. 7 Tablet 08/03/19 25 025 Active HumaLOG KwikPen 100 UNIT/ML Solution Pen-injector INJECT 28 UNITS UNDER SKIN BEFORE EACH MEAL.; ISF OF 1:15 OF IF>150MG/DL; MAX DAILY DOSE OF 100 UNITS 90 mL 08/06/19 25 Active insulin glargine (Lantus SoloStar) 100 UNIT/ML Solution Pen-injector 40 Units by Subcutaneous route every morning. 30 mL 08/06/19 25 Active HYDROcodone-ac etaminophen (NORCO) 7.5-325 MG Tablet 0 02/18/20 19 025 Discontinu ed(Med List Clean Up) methenamine (HIPREX) 1 GM Tablet Take 1 g by mouth 2 times daily. 025 Discontinu ed(Med List Clean Up) HumaLOG KwikPen 100 UNIT/ML Solution Pen-injector INJECT 28 UNITS UNDER SKIN BEFORE EACH MEAL.; ISF OF 1:15 OF IF>150MG/DL; MAX DAILY DOSE OF 100 UNITS 90 mL 1 06/27/19 24 025 Discontinu ed(Reorder ) Continuous Glucose Sensor (FreeStyle Eileen 2 Sensor) [facility] [place] 1 SENSOR AND WEAR FOR 14 DAYS TO CHECK BLOOD SUGAR 6 Each 1 10/02/19 24 025 Discontinu ed(Reorder ) insulin glargine (Lantus SoloStar) 100 UNIT/ML Solution Pen-injector 40 Units by Subcutaneous route nightly. 15 mL 02/21/20 24 025 Discontinu ed(Reorder ) doxycycline hyclate (VIBRAMYCIN) 100 MG Capsule Take 1 Capsule by mouth 2 times daily for 10 days. 20 Capsule 08/02/19 025 Discontinu ed(Allergi c response) azithromycin (ZITHROMAX) 250 MG Tablet Take 1 Tablet by mouth daily for 5 days. 2 tab(s) daily for 1 day, then 1 tab(s) daily for days 2-5. 6 Tablet 08/02/19 025 Active Problems Problem Noted Date Diagnosed Date Polymyalgia rheumatica 08/07/2024 Class 3 severe obesity due t o [...] Overview: Added automatically from request for surgery [id number] Lymphedema of left upper extremity 08/09/2016 Pulmonary embolism 08/09/2016 Overview (11/09/2017): Last Assessment & Plan: On Rivaroxaban Arthralgia of ankle 01/26/2015 Cellulitis of breast 11/11/2014 Encounters Date Type Department Care Team Description 08/07/2024 9:20 AM CDT Lab [facility] [address] [facility] [address] [place] [address] [facility]/Ancillary Body aches; Diffuse arthralgia Discharge Disposition: Discharged to home or Selfcare 08/07/2024 8:30 AM CDT Office Visit [facility] - [facility] [address] [place] [address] Angelito Alegria APRN, CNP Diffuse arthralgia (Primary Dx); Dyspnea on exertion; Type 2 diabetes mellitus with diabetic polyneuropathy, with long-term current use of insulin (HCC) Discharge Disposition: Discharged to home or Selfcare 08/07/2024 Results Follow-Up [facility] [address] [place] [address] Angelito Alegria APRN, NETTA Polymyalgia rheumatica (HCC) (Primary Dx) 08/07/2024 Nurse Triage [facility] [address] [place] [phone] Justen Gale MD Breathing Problem; Muscle Pain 08/06/2024 Travel 08/05/2024 MyChart RX Renewal [facility] [address] [place] [phone] Annel Rod MD Medication Renewal Reviewed 08/05/2024 [facility] [address] [place] [phone] Justen Gale MD Muscle Pain; Follow-up 08/03/2024 3:36 AM CDT - 08/03/2024 7:05 AM CDT Emergency [facility] Emergency [address] [place] [phone] Sergio Rivera MD Myalgia Discharge Disposition: Discharged to home or Selfcare 08/02/2024 Travel 08/02/2024 Nurse [facility] [address] [place] [phone] Justen Gale MD Hemoptysis 08/02/2024 Telephone [facility] [address] [place] [phone] Justen Gale MD Results 08/02/2024 Telephone [facility] [address] [place] [address] Angelito Alegria APRN, WATER REUSE PROGRAM MANAGER Results 08/02/2024 MyChart RX Renewal [facility] Endocrinology [facility] [address] [place] [address] Annel Rod MD Medication Renewal Reviewed 08/01/2024 2:13 PM CDT - 08/01/2024 4:16 PM CDT Emergency [facility] Emergency [address] [place] [address] Jack Leiva MD Dyspnea on exertion Discharge Disposition: Discharged to home or Selfcare 08/01/2024 1:15 PM CDT Office Visit [facility] [address] [place] [address] Angelito Alegria APRN, WATER REUSE PROGRAM MANAGER Body aches (Primary Dx) Discharge Disposition: Discharged to home or Selfcare 08/01/2024 Travel 08/01/2024 Nurse Triage [facility] [address] [place] [phone] Justen Gale MD Pain 07/22/2024 Telephone [facility] [address] [place] [address] Justen Gale MD Appointment 07/11/2024 Nurse Triage [facility] [address] [place] [phone] Justen Gale MD Toe Problem 06/14/2024 Nurse Triage [facility] [address] [place] [phone] Justen Gale MD Urinary Incontinence; Urinary Problem 05/28/2024 Nurse Triage [facility] [address] [place] [phone] Justen Gale MD Nausea; Fatigue 05/14/2024 Nurse Triage [facility] [address] [place] [phone] Justen Gale MD Arm Swelling; Arm Pain 05/13/2024 Results [facility] [address] [place] [phone] Justen Gale MD from Last 3 Months Immunizations Immunization Administration Dates Next Due Covid-19 Vaccine, Vector-nr, Rs-ad26, Pf, 0.5 Ml ([employer]) 06/29/2020 Influenza Vaccine greater than 3 yrs 03/2020,02/14/2017,01/23/2016,2014,03/07/2014,05/07/2013 Influenza Vaccine, Quadrivalent, PF 12/23,05/04/2021,01/18/2020,2018,01/24/2018,02/14/2017 Influenza Vaccine,unspecifie d Formulation 01/17/2023 Influenza, Injectable, Quadrivalent 02/06/2017,1 Influenza, Quadrivalent, Adjuvanted 01/17/2023 Influenza, Seasonal, Injecta ble, Undefined 02/03/2020,01/23/2016,03/07/2014,2013 TDAP Vaccine 02/23/2016 Family History Medical History Relation Name Comments Cancer Father Silver Stroke Mother Bianca Relation Name Status Comments Father Silver Mother Bianca Social History Tobacco Use Types Packs/Day Years Used Date Smoking Tobacco: Never Smokeless Tobacco: Never Tobacco Cessation:Counseling Given: No Alcohol Use Standard Drinks/Week Comments No 0 (1 standard drink = 0.6 oz pur e alcohol) [facility] Utilities Answer Date Recorded In the past 12 months has [employer], gas, oil, or water [employer] threatened to shut off services in your home? Yes 08/06/2024 Social Connection and Isolat ion Panel [NHANES] Answer Date Recorded In a typical week, how many times do you talk on the phone with family, friends, or neighbors? More than three times a week 08/06/2024 How often do you get togethe r with friends or relatives? Patient declined 08/06/2024 How often do you attend [facility] or confucianism services? More than 4 times per year 08/06/2024 Do you belong to any clubs o r organizations such as scientologist groups, unions, fraternal or athletic groups, or school groups? No 08/06/2024 How often do you attend meet ings of the clubs or organizations you belong to? Never 08/06/2024 Are you , , di vorced, , never , or living with a partner? Patient declined 08/06/2024 AUDIT-C Answer Date Recorded Q1: How often do you have a drink containing alcohol? Never 08/06/2024 Q2: How many drinks containi ng alcohol do you have on a typical day when you are drinking? Patient does not drink Q3: How often do you have si x or more drinks on one occasion? Never 08/06/2024 Overall Financial Resource Strain (CARDIA) Answe r Date Recorded How hard is it for you to pa y for the very basics like food, housing, medical care, and heating? Hard 08/06/2024 PHQ-2 Answer Date Recorded Total Score - Questions 1-9 0 07[facility] - Occupational Stress Questionnaire Answer Date Recorded Do you feel stress - tense, restless, nervous, or anxious, or unable to sleep at night because your mind is troubled all the time - these days? Patient declined 08/06/2024 Exercise Vital Sign Answer Date Recorde d On average, how many days pe r week do you engage in moderate to strenuous exercise (like a brisk walk)? Patient declined On average, how many minutes do you engage in exercise at this level? Patient declined 08/06/2024 Hunger Vital Sign Answer Date Recorded Within the past 12 months, y ou worried that your food would run out before you got the money to buy more. Patient declined Within the past 12 months, t he food you bought just didn't last and you didn't have money to get more. Patient declined PRAPARE - Transportation Answer Date Re corded In the past 12 months, has l ack of transportation kept you from medical appointments or from getting medications? Patient declined 08/06/2024 In the past 12 months, has l ack of transportation kept you from meetings, work, or from getting things needed for daily living? Patient declined 08/06/2024 Housing Stability Vital Sign Answer [place] e Recorded In the last 12 months, was t here a time when you were not able to pay the mortgage or rent on time? No 08/06/2024 In the past 12 months, how m any times have you moved where you were living? 0 08/06/2024 At any time in the past 12 m [facility], were you homeless or living in a group home (including now)? No 08/06/2024 Education Answer Date Recorded What is the highest level of school you have completed or the highest degree you have received? Associate degree: occupational, technical, or vocational program 05/01/2022 Sexually Active Control Partners Comments Not Currently None Male Comments No Sex and Gender Information Value Date Recorded Sex Assigned at Female 08/03/2024 2:05 AM CDT Legal Sex Female 12:43 PM CDT Gender Identity Female 08/03/2024 2:05 AM CDT Sexual Orientation Not on file Last Filed Vital Signs Vital Sign Reading Time Taken Comments Blood Pressure 142/86 08/07/2024 8:22 AM CDT Pulse 96 08/07/2024 8:22 AM CDT Temperature 36.3 C (97.3 F) 08/07/2024 8:22 AM CDT Respiratory Rate 16 08/07/2024 8:22 AM CDT Oxygen Saturation 96% 08/07/2024 8:22 AM CDT Inhaled Oxygen Concentration - - Weight 124.3 kg (274 lb) 08/07/2024 8:22 AM CDT Height 154.9 cm (5' 1 ) 08/07/2024 8:22 AM CDT Body Mass Index 51.77 08/07/2024 8:22 AM CDT Plan of Treatment Upcoming Encounters Date Type Department Care Team (Late st Contact Info) Description 09/18/2024 2:45 PM CDT Office Visit [facility] - [facility] [address] [place] [address] Annel Rod MD [address] [phone] Health Maintenance Due Date Last [...] Priority Date/Time Associated Diagnosis Comments C-REACTIVE PROTEIN (CRP) QUANT Routine 08/07/2024 8:59 AM CDT Diffuse arthralgia ERYTHROCYTE SEDIMENTATION RATE (ESR) Routine 08/07/2024 8:59 AM CDT Diffuse arthralgia CREATINE KINASE (CK) TOTAL Routine 08/07/2024 8:59 AM CDT Body aches POCT GLUCOSE Routine 08/07/2024 8:31 AM CDT Type 2 diabetes mellitus with diabetic polyneuropathy, with long-term current use of insulin (HCC) XR HIP 2 VIEWS UNILATERAL RIGHT STAT 08/03/2024 6:17 AM CDT XR CHEST 2 VIEWS STAT 08/03/2024 12:4 1 AM CDT CBC WITH AUTO DIFFERENTIAL STAT [...] VIEW PORTABLE STAT 08/01/2024 2:40 PM CDT RSV,SARS-COV-2,INFLUE NZA A&B BY PCR STAT 08/01/2024 2:28 PM CDT EKG SCAN 08/01/2024 12:00 AM CDT PAIN CONSULT 07/24/2024 12:[address] - CHEST 07/22/2024 12:00 AM CDT XR - CHEST 07/21/2024 12:00 AM CDT XR - LOWER EXTREMITY 07/10/2024 12:[address] - ABDOMEN/PELVIS 06/21/2024 1 2:00 AM 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[employer] XR - LOWER EXTREMITY 06/20/2024 12:00 AM TEACHER [employer] PAIN CONSULT 05/20/2024 12:00 AM TEACHER [employer] XR - CHEST 05/15/2024 12:00 AM TEACHER [employer] URINALYSIS (UA) RANDOM 05/14/2024 12:00 AM TEACHER [employer]ER[employer] XR - CHEST 05/14/2024 12:00 AM TEACHER [employer] HEMOGLOBIN, A1C 10/02/2023 12:00 AM CDT HUMAN PAPILLOMA VIRUS (HPV) Routine 07/05/2022 2:24 PM CDT Encounter for gynecological examination with abnormal finding Encounter for screening for human papillomavirus (HPV) PATHOLOGY CYTOLOGY RADIOCHEMICAL TECHNICIAN Routine 07/05/2022 2:24 PM CDT Encounter for gynecological examination with abnormal finding HM COLONOSCOPY Routine 01/09/2020 AMB REFERRAL TO PODIATRY Routine 08/13/2019 POCT STOOL, OCCULT BLOOD, DIAGNOSTIC Routine 09/07/2018 1:20 PM CDT Generalized abdominal pain from Last 3 Months or Most Recently Relevant to Health Maintenance Results * (ABNORMAL) ERYTHROCYTE SEDIMENTATION RATE (ESR) (08/07/2024 8:59 AM CDT) Only the most recent of2 resultswithin the time period is included. ESR (SED RATE, ERYTHROCYTE SEDIMENTATION RATE) 52(H) <30 mm/h 08/07/2024 12:34 PM CDT [facility] Comment: Patients presenting with increased level of fibrinogen, gamma globulins, or abnormally shaped RBCs could affect the results for the erythrocyte sedimentation rate (ESR). Results should be clinically correlated. Blood Venipuncture / Unknown 08/07/2024 8:59 AM CDT 08/07/2024 8:59 AM CDT Angelito Alegria APRN, NETTA HEMATOLOGY ORDER CHAPARRO Final Result Performing Organization Address City/[facility]/ZIP Co de Phone Number [facility] [address] [place] [address] * CREATINE KINASE (CK) TOTAL (08/07/2024 8:59 AM CDT) Only the most recent of2 resultswithin the time period is included. CK (CPK) 151 29 - 168 U/L 08/07/2024 1:08 PM CDT [facility] Blood Venipuncture / Unknown 08/07/2024 8:59 AM CDT 08/07/2024 8:59 AM CDT Angelito Alegria APRN, NETTA HEMATOLOGY ORDER CHAPARRO Final Result [facility] [address] [place] [address] * (ABNORMAL) C-REACTIVE PROTEIN (CRP) QUANT (08/07/2024 8:59 AM CDT) Only the most recent of2 resultswithin the time period is included. Pathologist [facility] C-REACTIVE PROTEIN 1.21(H) <0.50 mg/dL 08/07/2024 12:54 PM CDT [facility] Blood Venipuncture / Unknown 08/07/2024 8:59 AM CDT 08/07/2024 8:59 AM CDT Angelito Alegria APRN, CNP CHEMISTRY ORDERA BLES Final Result [facility] [address] [place] [address] * (ABNORMAL) POCT GLUCOSE (08/07/2024 8:31 AM CDT) [facility] GLUCOSE 186(A) 70 - 99 mg/dL 08/07/2024 8:31 AM CDT Angelito Alegria APRN, CNP POINT OF CARE TE STING (MANUAL) Final Result * XR HIP 2 VIEWS UNILATERAL RIGHT [...] Sen Sy M.D. JANIYA: JANIYA Report ID: [id number] Reading Location: [id number] Procedure Note Dillon Sy MD - 08/03/2024 [...] 6:21 AM - Electronically signed by Sen DENSON: JANIYA Report ID: [id number] Reading Location: [id number] IMPRESSION: Negative right hip. Sergio Rivera MD [...] Patrick Zhou M.D. KH: KATH Report ID: [id number] Reading Location: [id number] Procedure Note Patrick Zhou MD - 08/03/2024 [...] Patrick Zhou M.D. KH: KATH Report ID: [id number] Reading Location: [id number] IMPRESSION: Mild bilateral infiltrates are suspected superimposed on chronic lung changes. Sergio Rivera MD [facility] DIAGNOSTIC ORDERABLES Final Result * CBC with Auto Differential (08/02/2024 11:21 PM CDT) Only the most recent of2 resultswithin the time period is included. WBC 9.26 4.00 - 12.00 10(3)/mcL 08/03/2024 12:08 AM CDT [facility] RBC 4.62 3.80 - 5.30 10(6)/mcL 08/03/2024 12:08 AM CDT [facility] HEMOGLOBIN (HGB) 13.5 12.0 - 15.8 g/dL 08/03/2024 12:08 AM CDT [facility] HEMATOCRIT (HCT) 42.9 36.0 - 47.0 % 08/03/2024 12:08 AM CDT [facility] MCV 92.9 82.0 - 96.0 fL 08/03/2024 12:08 AM CDT [facility] MCH 29.2 26.0 - 34.0 pg 08/03/2024 12:08 AM CDT [facility] MCHC 31.5 31.0 - 36.0 g/dL 08/03/2024 12:08 AM CDT [facility] PLATELET COUNT 272 140 - 440 10(3)/mcL 08/03/2024 12:08 AM CDT [facility] RDW 12.8 11.8 - 15.5 % 08/03/2024 12:08 AM CDT [facility] MPV 10.2 9.7 - 12.4 fL 08/03/2024 12:08 AM CDT [facility] NEUTROPHILS 62.5 47.0 - 73.0 % 08/03/2024 12:08 AM CDT [facility] LYMPHOCYTES 27.1 18.0 - 42.0 % 08/03/2024 12:08 AM CDT [facility] MONOCYTES 7.1 4.0 - 12.0 % 08/03/2024 12:08 AM CDT [facility] EOSINOPHILS 3.0 0.0 - 5.0 % 08/03/2024 12:08 AM CDT [facility] BASOPHILS 0.3 0.0 - 1.0 % 08/03/2024 12:08 AM CDT [facility] ABSOLUTE NEUTROPHILS 5.78 1.60 - 7.70 10(3)/mcL 08/03/2024 12:08 AM CDT [facility] ABSOLUTE LYMPHOCYTES 2.51 1.30 - 3.20 10(3)/mcL 08/03/2024 12:08 AM CDT [facility] ABSOLUTE MONOCYTES 0.66 0.20 - 1.00 10(3)/mcL 08/03/2024 12:08 AM CDT [facility] ABSOLUTE EOSINOPHIL 0.28 0.00 - 0.40 10(3)/mcL 08/03/2024 12:08 AM CDT [facility] ABSOLUTE BASOPHILS 0.03 0.00 - 0.10 10(3)/mcL 08/03/2024 12:08 AM CDT [facility] NRBC PER 100 WBC 0 04/12/20 25 12:08 AM CDT [facility] Blood Venipuncture / Unknown 08/02/2024 11:21 PM CDT 08/03/2024 12:05 AM CDT us Sergio Rivera MD HEMATOLOGY ORDERABLES Final Resu lt [facility] [address] [place] [address] * (ABNORMAL) CMP (Comprehensive Metabolic Panel) (08/02/2024 11:21 PM CDT) Only the most recent of2 resultswithin the time period is included. SODIUM 138 136 - 145 mmol/L 08/03/2024 12:29 AM CDT [facility] POTASSIUM 4.4 3.5 - 5.1 mmol/L 08/03/2024 12:29 AM CDT [facility] CHLORIDE 104 98 - 107 mmol/L 08/03/2024 12:29 AM CDT [facility] CO2, VENOUS 26 22 - 30 mmol/L 08/03/2024 12:29 AM CDT [facility] ANION GAP 12.4 <18.0 mmol/L 08/03/2024 12:29 AM CDT [facility] GLUCOSE 353(H) 70 - 99 mg/dL 08/03/2024 12:29 AM CDT [facility] BUN 18 10 - 20 mg/dL 08/03/2024 12:29 AM CDT [facility] CREATININE, BLOOD 0.80 0.60 - 1.00 mg/dL 08/03/2024 12:29 AM CDT [facility] BUN/CREATININE RATIO 23(H) 12 - 20 ratio 08/03/2024 12:29 AM CDT [facility] TOTAL PROTEIN 8.4(H) 6.0 - 8.0 g/dL 08/03/2024 12:29 AM CDT [facility] ALBUMIN 3.8 3.5 - 5.0 g/dL 08/03/2024 12:29 AM CDT [facility] A/G RATIO 0.8(L) 1.0 - 2.2 08/03/2024 12:29 AM CDT [facility] CALCIUM 10.0 8.7 - 10.5 mg/dL 08/03/2024 12:29 AM CDT [facility] T BILI 0.4 0.2 - 1.2 mg/dL 08/03/2024 12:29 AM CDT [facility] SGOT (AST) 23 <43 U/L 08/03/2024 12:29 AM CDT [facility] SGPT (ALT) 22 <56 U/L 08/03/2024 12:29 AM CDT [facility] ALKALINE PHOSPHATASE 67 40 - 150 U/L 08/03/2024 12:29 AM CDT [facility] GFR, ESTIMATED >60 >=60 08/03/2024 12:29 AM CDT [facility] Comment: Creatinine Clearance is the preferred criteria for selecting drug dose adjustments in renally impaired patients. The GFR is provided as additional pertinent clinical information. GFR is reported in mL/min/1.73 sq m. Calculation based on the Chronic Kidney Disease Epidemiology Collaboration (CKD- EPI) equation refit without adjustment for race. GFR, EST. >60 >=60 12:29 AM CDT [facility] GFR, EST. NONAFRICAN >60 >=60 08/03/2024 12:29 AM CDT [facility] Blood Venipuncture / Unknown 08/02/2024 11:21 PM CDT 08/03/2024 12:05 AM CDT us Sergio Rivera MD CHEMISTRY ORDERABLES Final Resul t [facility] [address] [place] [address] * TROPONIN I, HIGH SENSITIVITY (HSTRP) (08/01/2024 2:48 PM CDT) TROPONIN I, HIGH SENSITIVITY- [place] 4 <=14 ng/L 08/01/2024 3:45 PM CDT [facility] Comment: High-sensitivity troponin I results are reported in ng/L making the result appear to be 1,000 times higher than the contemporary troponin I value which is reported in ng/ml. Results from [place]. Blood Venipuncture / Unknown 08/01/2024 2:48 PM CDT 08/01/2024 3:08 PM CDT Jack Leiva MD CHEMISTRY ORDERABLES Deann l Result Performing Organization Address City/[facility] Co de Phone Number [facility] [address] [place] [address] * Gold Top Tube (08/01/2024 2:48 PM CDT) Blood No Phlebotomy Charged / Unknown 08/01/2024 2:48 PM CDT 08/01/2024 3:12 PM CDT Jack Leiva MD CHEMISTRY ORDERABLES Deann l Result Performing Organization Address City/[facility] de Phone Number [facility] [address] [place] [address] * Blue Top Tube (08/01/2024 2:48 PM CDT) Blood No Phlebotomy Charged / Unknown 08/01/2024 2:48 PM CDT 08/01/2024 3:12 PM CDT Jack Leiva MD HEMATOLOGY ORDERABLES Fin al Result Performing Organization Address City/[facility] Co de Phone Number [facility] [facility] [address] [place] [address] * Magnesium (08/01/2024 2:48 PM CDT) Pathologist [facility] MAGNESIUM 1.6 1.6 - 2.6 mg/dL 08/01/2024 3:39 PM CDT [facility] Blood Venipuncture / Unknown 08/01/2024 2:48 PM CDT 08/01/2024 3:08 PM CDT Jack Leiva MD CHEMISTRY ORDERABLES Deann l Result Performing Organization Address City/[facility]/ZIP Co de Phone Number [facility] [address] [place] [address] * B-Type Natriuretic Peptide (BNP) (08/01/2024 2:48 PM CDT) B TYPE NATRIURETIC PEPTIDE 23 <100 pg/mL 08/01/2024 3:37 PM CDT [facility] Blood Venipuncture / Unknown 08/01/2024 2:48 PM CDT 08/01/2024 3:08 PM CDT us Jack Leiva MD CHEMISTRY ORDERABLES Deann l Result Performing Organization Address City/[facility] Co de Phone Number [facility] [address] [place] [address] * EKG 12 LEAD (08/01/2024 2:41 PM CDT) Ventricular Rate 75 BPM EXTERNAL EKG Atrial Rate 75 BPM EXTERNAL EKG P-R Interval 134 ms EXTERNAL EKG QRS Duration 82 ms EXTERNAL EKG Q-T Duration 380 ms EXTERNAL EKG QTC CALCULATION 424 ms EXTERNAL EKG P [place] -77 degrees EXTERNAL EKG R [place] 28 degrees EXTERNAL EKG T [place] 53 degrees EXTERNAL EKG 08/01/2024 2:41 PM CDT Impressions EXTERNAL EKG - 08/04/2024 12:00 PM CDT Atrial-sensed ventricular-paced rhythm Abnormal ECG No previous ECGs available Confirmed by Maryann Clay ([id number]) on 08/04/2024 11:59:59 AM Narrative Procedure Note Maryann Clay MD - 08/04/2024 IMPRESSION: Atrial-sensed ventricular-paced rhythm Abnormal ECG No previous ECGs available Confirmed by Maryann Clay ([id number]) on 08/04/2024 11:59:59 AM us Jack Leiva MD IMG ECG ORDERABLES Final Result EXTERNAL EKG * XR CHEST SINGLE VIEW [...] Romelia Bowen D.O. PS: PS Report ID: [id number] Reading Location: [id number] Procedure Note Romelia Bowen DO - 08/01/2024 [...] Romelia Bowen D.O. PS: PS Report ID: [id number] Reading Location: [id number] IMPRESSION: Patchy left basilar airspace opacities, which may be related to subsegmental atelectasis/scarring versus developing airspace disease. Jack Leiva MD IMG DIAGNOSTIC ORDERABLES Final Result * RSV,SARS-COV-2,INFLUENZA A&B BY PCR (08/01/2024 2:28 PM CDT) FLU A Negative Negative, Error 08/01/2024 3:20 PM CDT [facility] FLU B Negative Negative 08/01/2024 3:20 PM CDT [facility] RESP SYNC VIRUS Negative Negative 3:20 PM CDT [facility] SARSCOV2 NOT DETECTED (Reference Range for this test is Not Detected) 08/01/2024 3:20 PM CDT [facility] Comment:This test was perfor med by a Reverse Brazing Furnace Feeder PCR Method. Swab NASOPHARYNGEAL STRUCTURE / Unknown Non-Phlebotomy Collection / Unknown 08/01/2024 2:28 PM CDT 08/01/2024 2:33 PM CDT Jack Leiva MD MICROBIOLOGY - GENERAL OR DERABLES Final Result [facility] [address] [place] [address] * EKG SCAN (08/01/2024 12:00 AM CDT) 08/01/2024 us Provider Scan IMG ECG ORDERABLES Final Result Performing Organization Address City/[facility] de Phone Number RESULTING AGENCY * PAIN CONSULT (07/24/2024 12:00 AM CDT) Only the most recent of2 resultswithin the time period is included. 07/24/2024 Justen Gale MD GENERIC SCAN ORDERS CONSULT F inal Result Performing Organization Address [facility] [place]/[facility] de Phone Number SCAN * CT - CHEST (07/22/2024 12:00 AM CDT) 07/22/2024 us Provider Scan IMG CT ORDERABLES Final Result Performing Organization Address [facility] de Phone Number SCAN * XR - CHEST (07/21/2024 12:00 AM CDT) Only the most recent of3 resultswithin the time period is included. 07/21/2024 us Provider Scan IMG DIAGNOSTIC ORDERABLES Final Result Performing Organization Address [facility] de Phone Number SCAN * XR - LOWER EXTREMITY (07/10/2024 12:00 AM CDT) Only the most recent of2 resultswithin the time period is included. 07/10/2024 us Provider Scan IMG DIAGNOSTIC ORDERABLES Final Result Performing Organization Address [facility] de Phone Number SCAN * CT - ABDOMEN/PELVIS (06/21/2024 12:00 AM TEACHER KINDERGARTEN) 06/21/2024 us Provider Scan IMG CT ORDERABLES Final Result Performing Organization Address [facility] de Phone Number SCAN * URINALYSIS (UA) RANDOM (05/14/2024 12:00 AM TEACHER KINDERGARTEN) 05/14/2024 us Provider Scan URINE ORDERABLES Final Result SCAN * HEMOGLOBIN, A1C (10/02/2023 12:00 AM CDT) HGB-A1C 7.8 SCAN 10/02/2023 us Provider Scan CHEMISTRY ORDERABLES Final Resul t SCAN * PATHOLOGY CYTOLOGY RADIOCHEMICAL TECHNICIAN (07/05/2022 2:24 PM CDT) SPECIMEN ADEQUACY A scant cellular component is noted. Scant cellularity is likely due to presence of lubricant. 07/08/2022 8:38 AM CDT [facility] DESCRIPTIVE DIAGNOSIS NEGATIVE FOR INTRAEPITHELIAL LESIONS OR MALIGNANCY. 07/08/2022 8:38 AM CDT [facility] at 0838 CDT OTHER FINDINGS Atrophic hormonal pattern. 07/08/2022 8:38 AM CDT [facility] Automated Examination This sample was not evaluated by the automated imaging and review system ([employer] System, [employer], [place], [place] due to technical and / or biologic factor(s). The case was screened, reviewed, and finalized by a culinary internship and / or pathologist. 07/08/2022 8:38 AM CDT [facility] Disclaimer The PAP smear is [...] unless clinically indicated. 07/08/2022 8:38 AM CDT [facility] Other CERVIX UTERI STRUCTURE / Unknown Non-Phlebotomy Collection / Unknown 07/05/2022 2:24 PM CDT 07/05/2022 2:24 PM CDT us Pili Elkins APRN, CNP PATHOLOGY/CYTOLOGY O RDERABLES Final Result [facility] [address] [place] [address], * HUMAN PAPILLOMA VIRUS (HPV) (07/05/2022 2:24 PM CDT) HPV OTHER HIGH RISK TYPES, PCR NEGATIVE NEGATIVE 07/06/2022 2:37 PM CDT [facility] Comment: The following Other High [...] 16 NEGATIVE NEGATIVE 07/06/2022 2:37 PM CDT [facility] Comment: A negative high-risk HPV [...] 18 NEGATIVE NEGATIVE 07/06/2022 2:37 PM CDT [facility] Comment: A negative high-risk HPV [...] OR DIAGNOSTIC SCREENING 07/06/2022 2:37 PM CDT [facility] Other Non-Phlebotomy Collection / Unknown 07/05/2022 2:24 PM CDT 07/05/2022 2:24 PM CDT Narrative [facility] - 07/06/2022 2:37 PM CDT Performed by Real-Time Polymerase Chain Reaction (PCR) on the Ronnie Vinay 4800. This assay has been validated for use with post-aliquot samples from the [employer] T5000 processor. Pili Elkins APRN, CNP LAB SEND OUTS Deann l Result [facility] [address] [place] [address], [facility] [address] [place] [address] * COLONOSCOPY (01/09/2020) Genaro Jensen DO PROCEDURE/MINOR SURGICAL ORDERA BLES Final Result * AMB REFERRAL TO PODIATRY (08/13/2019) Alvarez Mensah MD OUTPATIENT REFERRALS Final Res ult * POCT STOOL, OCCULT BLOOD, DIAGNOSTIC (09/07/2018 1:20 PM CDT) OCCULT BLOOD, STOOL Negative Negative, Other POC HEMOCULT CONTROL Target Developer Pass 09/07/2018 1:20 PM CDT Pili Elkins APRN, CNP POINT OF CARE TESTIN G (MANUAL) Final Result from Last 3 Months or Most Recently Relevant to Health Maintenance Insurance MEDICARE C [employer] Care Teams Custom Van Converter Relationship Specialty Start Date End Date Justen Gale MD [address]2 [facility] [address] [place] [address] PCP - General Family Medicine 10/17/17 David Roberts APRN, WATER REUSE PROGRAM MANAGER [address] [place] [address] Nurse Practitioner Advanced Practice Nurse 01/31/22 Annel Rod MD [address]2 [facility] [address] [place] [address] Consulting Physician Endocrinology 07/01/22
--- OUTSIDE RECORDS SUMMARY | 2024-08-07 16:35 | XMS_ITS | Encounter Summary ---
Author Organization [facility] Address [address] [place] [address] Phone Care Team Providers Care Levers Lace Machine Operator Name Role Phone Jusetn Gale MD Primary Care Provider [phone] David Roberts APRN, REFRIGERATION PERSON Unavailable [phone] Annel Rod MD Unavailable Reason for Visit * Reason Comments Medication Refill Encounter Details Date Type Department Care Team (Late st Contact Info) Description 02/17/2021 Refill [facility] [address] [place] [phone] Justen Gale MD [address] [address] Medication Refill Social History Tobacco Use Types [...] Mcgee 06/05/20 Office Visit Pili Elkins APRN, REFRIGERATION PERSON [facility] Showing recent visits within past 365 days and meeting all other requirements Future Appointments Date Type Provider Dept 03/02/21 Appointment Vince Hermosillo MD [facility] Showing future appointments within next 90 days and meeting all other requirements documented in this encounter Plan of Treatment Upcoming Encounters Date Type Department Care Team (Late st Contact Info) Description 09/18/2024 2:45 PM CDT Office Visit [facility] - [place] [address] [place] [address] Annel Rod MD #[address] [address] documented as of this encounter Visit Diagnoses Not on filedocumented in this encounter Additional Health Concerns Infection Onset Date Last Indicated Resolved Time COVID - 19 08/01/2024 08/01/2024 08/01/2024 3:20 PM CDT Assessment Noted Time PHQ-9 Depression Total Score: 0 07/21/19 21 3:00 PM CDT documented as of this encounter Care Teams Levers Lace Machine Operator Relationship Specialty Start Date End Date Justen Gale MD #2 [facility] [address] [place] [address] PCP - General Family Medicine 10/17/17 David Roberts APRN, REFRIGERATION PERSON [address] [place] [address] Nurse Practitioner Advanced Practice Nurse 01/31/22 Annel Rod MD #[address] [address] Consulting Physician Endocrinology 07/01/22 documented as of this encounter
--- OUTSIDE RECORDS SUMMARY | 2024-08-07 16:35 | XMS_ITS | Encounter Summary ---
Author Organization [facility] Address [address] [place] [address] Phone Care Team Providers Care Clerk Specialist Name Role Phone Justen Gale MD Primary Care Provider [phone] David Roberts APRN, TICKET TAKER FERRYBOAT Unavailable [phone] Annel Rod MD Unavailable Reason for Visit * Reason Comments Medication Refill Encounter Details Date Type Department Care Team (Late st Contact Info) Description 02/07/2023 Refill [facility] [address] [place] [address] Pili Elknis APRN, TICKET TAKER FERRYBOAT #[address] [address] Medication Refill Social History Tobacco [...] Visit [facility] - [place] [address] [place] [address] Annel Rod MD #[address] [address] documented as of this encounter Visit Diagnoses Diagnosis Essential hypertension Unspecified essential hypertension documented in this encounter Additional Health Concerns Infection Onset Date Last Indicated Resolved Time COVID - 19 08/01/2024 08/01/2024 08/01/2024 3:20 PM CDT Assessment Noted Time PHQ-9 Depression Total Score: 8 01/18/20 23 2:24 PM CDT documented as of this encounter Care Teams Clerk Specialist Relationship Specialty Start Date End Date Justen Gale MD #2 [facility] [address] [place] [address] PCP - General Family Medicine 10/17/17 David Roberts APRN, TICKET TAKER FERRYBOAT [address] [place] [address] Nurse Practitioner Advanced Practice Nurse 01/31/22 Annel Rod MD [address] [place] [address] [phone] Consulting Physician Endocrinology 07/01/22 documented as of this encounter
--- OUTSIDE RECORDS SUMMARY | 2024-08-07 16:35 | XMS_ITS | Encounter Summary ---
Author Organization [facility] Address [address] [place] [address] Phone Care Team Providers Care Sharebroker Name Role Phone Justen Gale MD Primary Care Provider [phone] David Roberts APRN, KEYING MACHINE OPERATOR Unavailable [phone] Annel Rod MD Unavailable Reason for Visit * Reason Comments Medication Refill Encounter Details Date Type Department Care Team (Late st Contact Info) Description 08/07/2023 Refill [facility] - [place] [address] [place] [address] Annel Rod MD #[address] [address] Medication Refill Social History Tobacco [...] Description 09/18/2024 2:45 PM CDT Office Visit [facility] - [facility]ology [facility] #[address] [place] [address] Annel Rod MD #[address] [address] documented as of this encounter Visit Diagnoses Not on filedocumented in this encounter Additional Health Concerns Infection Onset Date Last Indicated Resolved Time COVID - 19 08/01/2024 08/01/2024 08/01/2024 3:20 PM CDT Assessment Noted Time PHQ-9 Depression Total Score: 8 01/18/20 23 2:24 PM CDT documented as of this encounter Care Teams Sharebroker Relationship Specialty Start Date End Date Justen Gale MD #[address] [address] PCP - General Family Medicine 10/17/17 David Roberts APRN, KEYING MACHINE OPERATOR [address] [place] [address] Nurse Practitioner Advanced Practice Nurse 01/31/22 Annel Rod MD #[address] [address] Consulting Physician Endocrinology 07/01/22 documented as of this encounter
--- OUTSIDE RECORDS SUMMARY | 2024-08-07 16:35 | XMS_ITS | Referral Summary ---
Author Organization [facility] Address [address] [place] [id number] Care Team Providers Care Space Control Supervisor Name Role Phone Liu Jerez MD Unavailable Albert Corbin MD Unavailable [phone] Justen Gale MD Primary Care Provider Khris Arthur MD Unavailable [phone] Ko Melendez MD Unavailable [phone] John Paul Moyer MD Unavailable Annel Rod MD Unavailable Anali MARSHALL MD, Carlos M. Unavailable Encounters Date Type Department Care Team Description 07/01/2024 8:52 PM CDT - 07/01/2024 10:18 PM CDT Emergency [facility] Emergency Department [address] [place] [address] Myalgia (Primary Dx); Viral syndrome Discharge Disposition: Discharge to home or self care 05/30/2024 Orders Only [facility] [address] [facility] [address] [place] [address] Radha Mcgrath RN Lymphedema of left arm (Primary Dx); Malignant neoplasm of upper-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, unspecified estrogen receptor status (HCC); Malignant neoplasm of overlapping sites of left female breast, unspecified estrogen receptor status (HCC); Malignant neoplasm of female breast, unspecified estrogen receptor status, unspecified laterality, unspecified site of breast (HCC) 05/21/2024 9:12 PM REVIEW SCHEDULING COORDINATOR - 05/26/2024 6:45 PM REVIEW SCHEDULING COORDINATOR Hospital Encounter [address] [address] Jimmie Zavala MD Liss, MD Ra Parnell, MD Sebastian Claros, MD Carlos Left arm pain (Primary Dx); Left leg pain; Shortness of breath; Urinary tract infection without hematuria, site unspecified; Allergy to drug Discharge Disposition: Discharge to home or self care 05/24/2024 Telephone [facility] [address] [place] [address] Radha Warner RN 05/23/2024 8:10 AM REVIEW SCHEDULING COORDINATOR Ancillary Procedure [facility] Vascular Lab IP [address] [facility] [address] [place] [address] 05/21/2024 12:58 PM REVIEW SCHEDULING COORDINATOR - 05/21/2024 11:59 PM REVIEW SCHEDULING COORDINATOR Hospital Encounter AMBULANCE BILLING [address] [place] [address] Discharge Disposition: Discharge to home or self care 05/21/2024 11:00 AM REVIEW SCHEDULING COORDINATOR - 05/21/2024 11:59 PM REVIEW SCHEDULING COORDINATOR Hospital Encounter [facility] [place] [facility] - Breast Imaging [address] [place] [address] Floor 8 [place] [address] History of breast cancer; Axillary pain, left Discharge Disposition: Discharge to home or self care 05/16/2024 Telephone [facility] [address] [place] [address] 8 [place] [address] Jeanine Ba RMA 05/16/2024 Orders Only [facility] [address] [place] [address] 8 [place] [address] Radha Mcgrath RN History of breast cancer (Primary Dx); Axillary pain, left 05/16/2024 Orders Only [facility] [address] [place] [address] 8 [place] [address] Khris Arthur MD Swelling of left upper extremity (Primary Dx); Swelling of left lower extremity 05/14/2024 4:45 PM REVIEW SCHEDULING COORDINATOR Lab [facility] - Lab Collection [address] [place] [address] 5 [place] [address] Malignant neoplasm of upper-inner quadrant of left breast in female, estrogen receptor positive (HCC) 05/14/2024 4:36 PM REVIEW SCHEDULING COORDINATOR - 05/14/2024 11:59 PM REVIEW SCHEDULING COORDINATOR Hospital Encounter [facility] - Diagnostic Imaging [address] [place] [address] 8 [place] [address] Malignant neoplasm of upper-inner quadrant of left breast in female, estrogen receptor positive (HCC) Discharge Disposition: Discharge to home or self care 05/14/2024 4:00 PM REVIEW SCHEDULING COORDINATOR Lab [facility] Lab [address] [place] [address] 5 [place] [address] Malignant neoplasm of upper-inner quadrant of left breast in female, estrogen receptor positive (HCC) 05/14/2024 3:30 PM REVIEW SCHEDULING COORDINATOR Office Visit [facility] [address] [place] [address] 8 [place] [address] Khris Arthur MD Swelling of right lower [...] Taken at 2100 Active blood glucose diagnostic (CancerIQuch Ultra Test) strip 4 (four) times a [...] 05/22/2024 Assessment & Plan (05/26/2024 10:08 AM REVIEW SCHEDULING COORDINATOR): Presenting with urinary symptoms of right flank [...] 3 doses q48 hours -Previously followed with [facility] Urology, but lost to follow up when her Urologist left the practice, outpatient urology follow up placed - good pain control w/Dilaudid, continue prn Venous thromboembolism (VTE) 05/22/2024 Assessment & Plan (05/25/2024 7:52 AM REVIEW SCHEDULING COORDINATOR): Hx of breast cancer c/b DVT/bilateral Pes [...] 05/22/2024 Assessment & Plan (05/22/2024 1:14 PM REVIEW SCHEDULING COORDINATOR): -long-standing chronic back pain -CT L spine [...] 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) 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 10/17/2019 [...] complication, without long-term current use of insulin ([facility]) 10/23/2017 Assessment & Plan (10/23/2017 2:06 AM [...] 10/13/2017 Assessment & Plan (05/22/2024 12:29 PM REVIEW SCHEDULING COORDINATOR): -Hx stage II, ER positive, HER2 negative [...] 08/01/2017 Assessment & Plan (05/22/2024 12:33 PM REVIEW SCHEDULING COORDINATOR): -Hx LUL -Hospital provided CPAP ordered History of DVT (deep vein thrombosis) 08/01/2017 History of pulmonary embolism 08/01/2017 Generalized weakness 07/27/2017 Dyspnea 07/27/2017 Unintentional weight loss 07/27/2017 Acute cystitis without hematuria 07/27/2017 Nausea and vomiting 07/26/2017 Overview (07/28/2017): Added automatically from request for surgery [id number] Pulmonary embolism 08/09/2016 Assessment & Plan (10/23/2017 2:05 AM CDT): On Rivaroxaban Lymphedema of left upper extremity 08/09/2016 Assessment & Plan (05/25/2024 7:53 AM REVIEW SCHEDULING COORDINATOR): S/p L axillary lymph node dissection 2014, [...] syndrome Assessment & Plan (05/22/2024 11:18 AM REVIEW SCHEDULING COORDINATOR): -continue home Requip 5mg nightly Pain of lower extremity 03/12/2013 Overview (07/29/2016): Leg pain Essential hypertension Assessment & Plan (05/23/2024 10:42 AM REVIEW SCHEDULING COORDINATOR): -Chart history of HTN but not on meds -BP elevated on admission, likely some pain contributing -Monitor closely once pain under adequate control, discussed following up with PCP for this Chronic anticoagulation Restless leg syndrome 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 More than 4 times per year [...] slept in a mcfp (including now)? No 08/15/2023 Housing Stability Vital Sign Answer [place] e Recorded In the last 12 months, was t here a time when you were not able to pay the mortgage or rent on time? No 05/24/2024 In the past 12 months, how m any times have you moved where you were living? 0 05/24/2024 At any time in the past 12 m [facility], were you homeless or living in a mcfp (including now)? No 05/24/2024 Personal Safety Answer Date Recorded Have you ever been in or are you currently in a harmful physical or emotional relationship or is someone making you feel afraid or unsafe? Denies 07/01/2024 Comments No Sex and Gender Information Value Date Recorded Sex Assigned at Not on file Legal Sex Female 12:24 AM REVIEW SCHEDULING COORDINATOR Gender Identity Not on file Sexual [...] GLUCOSE DEVICE Routine 05/26/2024 4 :27 PM REVIEW SCHEDULING COORDINATOR POCT GLUCOSE DEVICE Routine 05/26/2024 1 1:38 AM REVIEW SCHEDULING COORDINATOR POCT GLUCOSE DEVICE Routine 05/26/2024 8 :12 AM REVIEW SCHEDULING COORDINATOR EGFR Routine 05/26/2024 12:05 AM REVIEW SCHEDULING COORDINATOR DIFFERENTIAL AUTO Routine 05/26/2024 12: 05 AM REVIEW SCHEDULING COORDINATOR PHOSPHORUS Routine 05/26/2024 12:05 AM REVIEW SCHEDULING COORDINATOR COMPREHENSIVE METABOLIC PANEL Routine 05/26/2024 12:05 AM REVIEW SCHEDULING COORDINATOR MAGNESIUM Routine 05/26/2024 12:05 AM REVIEW SCHEDULING COORDINATOR CBC WITH AUTO DIFFERENTIAL Routine 05/26/2024 12:05 AM REVIEW SCHEDULING COORDINATOR POCT GLUCOSE DEVICE Routine 05/25/2024 7 :44 PM REVIEW SCHEDULING COORDINATOR POCT GLUCOSE DEVICE Routine 05/25/2024 5 :24 PM REVIEW SCHEDULING COORDINATOR POCT GLUCOSE DEVICE Routine 05/25/2024 1 1:37 AM REVIEW SCHEDULING COORDINATOR POCT GLUCOSE DEVICE Routine 05/25/2024 7 :27 AM REVIEW SCHEDULING COORDINATOR EGFR Routine 05/25/2024 12:20 AM REVIEW SCHEDULING COORDINATOR DIFFERENTIAL AUTO Routine 05/25/2024 12: 20 AM REVIEW SCHEDULING COORDINATOR PHOSPHORUS Routine 05/25/2024 12:20 AM REVIEW SCHEDULING COORDINATOR COMPREHENSIVE METABOLIC PANEL Routine 05/25/2024 12:20 AM REVIEW SCHEDULING COORDINATOR MAGNESIUM Routine 05/25/2024 12:20 AM REVIEW SCHEDULING COORDINATOR CBC WITH AUTO DIFFERENTIAL Routine 05/25/2024 12:20 AM REVIEW SCHEDULING COORDINATOR POCT GLUCOSE DEVICE Routine 05/24/2024 8 :13 PM REVIEW SCHEDULING COORDINATOR POCT GLUCOSE DEVICE Routine 05/24/2024 5 :17 PM REVIEW SCHEDULING COORDINATOR POCT GLUCOSE DEVICE Routine 05/24/2024 1 2:49 PM REVIEW SCHEDULING COORDINATOR POCT GLUCOSE DEVICE Routine 05/24/2024 9 :22 AM REVIEW SCHEDULING COORDINATOR HERPES SIMPLEX VIRUS (HSV) PCR Routine 05/24/2024 8:47 AM REVIEW SCHEDULING COORDINATOR POCT GLUCOSE DEVICE Routine 05/24/2024 8 :22 AM REVIEW SCHEDULING COORDINATOR EGFR Routine 05/24/2024 12:29 AM REVIEW SCHEDULING COORDINATOR DIFFERENTIAL AUTO Routine 05/24/2024 12: 29 AM REVIEW SCHEDULING COORDINATOR PHOSPHORUS Routine 05/24/2024 12:29 AM REVIEW SCHEDULING COORDINATOR COMPREHENSIVE METABOLIC PANEL Routine 05/24/2024 12:29 AM REVIEW SCHEDULING COORDINATOR MAGNESIUM Routine 05/24/2024 12:29 AM REVIEW SCHEDULING COORDINATOR CBC WITH AUTO DIFFERENTIAL Routine 05/24/2024 12:29 AM REVIEW SCHEDULING COORDINATOR POCT GLUCOSE DEVICE Routine 05/23/2024 8 :16 PM REVIEW SCHEDULING COORDINATOR POCT GLUCOSE DEVICE Routine 05/23/2024 6 :14 PM REVIEW SCHEDULING COORDINATOR POCT GLUCOSE DEVICE Routine 05/23/2024 1 2:17 PM REVIEW SCHEDULING COORDINATOR US VEIN DUPLEX LOWER EXTREMITY BILATERAL COMPLETE IP Routine 05/23/2024 11:45 AM REVIEW SCHEDULING COORDINATOR POCT GLUCOSE DEVICE Routine 05/23/2024 8 :16 AM REVIEW SCHEDULING COORDINATOR DIFFERENTIAL AUTO Routine 05/23/2024 2:3 0 AM REVIEW SCHEDULING COORDINATOR CBC WITH AUTO DIFFERENTIAL Routine 05/23/2024 2:30 AM REVIEW SCHEDULING COORDINATOR EGFR Routine 05/23/2024 12:42 AM REVIEW SCHEDULING COORDINATOR LACTATE DEHYDROGENASE Routine 05/23/2024 12:42 AM REVIEW SCHEDULING COORDINATOR URIC ACID Routine 05/23/2024 12:42 AM REVIEW SCHEDULING COORDINATOR TYPE AND SCREEN Timed 05/23/2024 12:42 AM REVIEW SCHEDULING COORDINATOR PHOSPHORUS Routine 05/23/2024 12:42 AM REVIEW SCHEDULING COORDINATOR COMPREHENSIVE METABOLIC PANEL Routine 05/23/2024 12:42 AM REVIEW SCHEDULING COORDINATOR MAGNESIUM Routine 05/23/2024 12:42 AM REVIEW SCHEDULING COORDINATOR POCT GLUCOSE DEVICE Routine 05/22/2024 8 :56 PM REVIEW SCHEDULING COORDINATOR POCT GLUCOSE DEVICE Routine 05/22/2024 6 :09 PM REVIEW SCHEDULING COORDINATOR POCT GLUCOSE DEVICE Routine 05/22/2024 4 :26 PM REVIEW SCHEDULING COORDINATOR CT ABDOMEN PELVIS W CONTRAST ED 05/22/2024 2:32 PM REVIEW SCHEDULING COORDINATOR POCT GLUCOSE DEVICE Routine 05/22/2024 1 2:58 PM REVIEW SCHEDULING COORDINATOR POCT GLUCOSE DEVICE Routine 05/22/2024 9 :29 AM REVIEW SCHEDULING COORDINATOR POCT GLUCOSE DEVICE Routine 05/22/2024 6 :54 AM REVIEW SCHEDULING COORDINATOR CT CHEST PE W CONTRAST ED 05/22/2024 1:31 AM REVIEW SCHEDULING COORDINATOR D-DIMER, QUANTITATIVE Routine 05/22/2024 12:24 AM REVIEW SCHEDULING COORDINATOR URINALYSIS, MICROSCOPIC ONLY Routine 05/21/2024 11:09 PM REVIEW SCHEDULING COORDINATOR TROPONIN I HIGH-SENSITIVITY 2-HOUR Timed 05/21/2024 11:09 PM REVIEW SCHEDULING COORDINATOR URINE CULTURE Routine 05/21/2024 11:09 PM REVIEW SCHEDULING COORDINATOR RESPIRATORY PATHOGEN PANEL Routine 05/21/2024 11:09 PM REVIEW SCHEDULING COORDINATOR URINALYSIS AND REFLEX TO MICROSCOPIC AND CULTURE Routine 05/21/2024 11:09 PM REVIEW SCHEDULING COORDINATOR POCT GLUCOSE DEVICE Routine 05/21/2024 8 :55 PM REVIEW SCHEDULING COORDINATOR TROPONIN I HIGH-SENSITIVITY 4-HOUR Timed 05/21/2024 7:26 PM REVIEW SCHEDULING COORDINATOR LIPID PANEL STAT 05/21/2024 4:20 PM REVIEW SCHEDULING COORDINATOR HEMOGLOBIN A1C STAT 05/21/2024 4:20 PM REVIEW SCHEDULING COORDINATOR EGFR STAT 05/21/2024 4:20 PM REVIEW SCHEDULING COORDINATOR DIFFERENTIAL AUTO STAT 05/21/2024 4:2 0 PM REVIEW SCHEDULING COORDINATOR TROPONIN I HIGH-SENSITIVITY SERIES (BASELINE, 2HR, 4HR, 6HR) STAT 05/21/2024 4:20 PM REVIEW SCHEDULING COORDINATOR COMPREHENSIVE METABOLIC PANEL STAT 05/21/2024 4:20 PM REVIEW SCHEDULING COORDINATOR CBC WITH AUTO DIFFERENTIAL STAT 05/21/2024 4:20 PM REVIEW SCHEDULING COORDINATOR XR CHEST PA LATERAL 2 VIEWS ED 05/21/2024 2:23 PM REVIEW SCHEDULING COORDINATOR POCT GLUCOSE DEVICE Routine 05/21/2024 1 :39 PM REVIEW SCHEDULING COORDINATOR ECG 12-LEAD STAT 05/21/2024 1:36 PM REVIEW SCHEDULING COORDINATOR US AXILLARY LEFT Schedule Routine, Read Routine (OP Routine) 05/21/2024 12:13 PM REVIEW SCHEDULING COORDINATOR History of breast cancer Axillary pain, left URINALYSIS, MICROSCOPIC ONLY Routine 05/14/2024 4:50 PM REVIEW SCHEDULING COORDINATOR Malignant neoplasm of upper-inner quadrant of left breast in female, estrogen receptor positive (HCC) URINALYSIS AND REFLEX TO MICROSCOPIC AND CULTURE Routine 05/14/2024 4:50 PM REVIEW SCHEDULING COORDINATOR Malignant neoplasm of upper-inner quadrant of left breast in female, estrogen receptor positive (HCC) XR RIBS LEFT 2 VIEWS Schedule Routine, Read Routine (OP Routine) 05/14/2024 4:44 PM REVIEW SCHEDULING COORDINATOR Malignant neoplasm of upper-inner quadrant of left [...] breath since last night. 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 AR: VALERY Report ID: [id number] Reading Location: [id number] Procedure Note Juve Gallegos MD - 07/01/2024 [...] Juve Gallegos M.D. AR: VALERY Report ID: [id number] Reading Location: [place] [address] PROCEDURES Final Resu lt * (ABNORMAL) Troponin T high-sensitivity 2-hour (07/01/2024 3:43 PM CDT) Trop T hs 27(H) <=14 ng/L Comment: Interpretive Data For further hscTnT resources including the diagnostic algorithm and an aid in interpretation, copy and paste this link: https://nrl.testcatalog.org/show/hsTrop Current Interpretive Data last revised 2020. Testing performed by: [address] [address] Trop T hs delta 0 ng/L MARY JANE PHAM Comment:Testing performed by : [address] [address] Trop T hs interp Insignificant MARY JANE PHAM Comment:Testing performed by : [address] [address] Blood 07/01/2024 3:43 PM CDT 07/01/2024 3:52 PM CDT us Ilana Stevens MD LAB BLOOD ORDERABLES F inal Result MARY JANE [address] [facility] Department [place] [address] * (ABNORMAL) Urinalysis reflex to microscopic and culture Urine (07/01/2024 3:43 PM CDT) Color, ur Yellow Yellow Comment:Testing performed by : [address] [address] Clarity, ur Clear Clear MARY JANE Comment:Testing performed by : [address] [address] Specific gravity, ur 1.020 1.003 - 1.030 MARY JANE Comment:Testing performed by : [address] [address] pH, urine 6.0 MARY JANE Comment: Interpretive Data U rine pH is affected by diet, medications, systemic acid-base disturbances, and renal tubular function. pH may affect urinary stone formation. For example, urine pH below 6.0 may help reduce the tendency for calcium phosphate stones and pH greater than 6.0 may reduce the tendency for uric acid stone formation. Source: [facility] [place] Current Interpretive Data was last revised on 2017 Testing performed by: [address] [address] Protein, ur ql Negative Negative MARY JANE Comment:Testing performed by : [address] [address] Glucose, ur ql 2+(A) Negative MARY JANE Comment:Testing performed by : [address] [address] Ketones, ur Negative Negative MARY JANE Comment:Testing performed by : [address] [address] Bilirubin, ur Negative Negative MARY JANE Comment:Testing performed by : [address] [address] Blood, ur Trace(A) Negative MARY JANE Comment:Testing performed by : [place] [address], [place]., [address] Urobilinogen, ur <2.0 <2.0 mg/dL MARY JANE PHAM Comment:Testing performed by : [address], [place]., [address] Nitrite, ur Negative Negative MARY JANE PHAM Comment:Testing performed by : [address], [place]., [address] Leukocyte esterase, ur Negative Negative MARY JANE PHAM Comment:Testing performed by : [facility] [address] [place] [address], [place]., [address] UA reflex comment Reflex to microscopic UA will be performed. MARY JANE PHAM Comment:Testing performed by : [address], [place]., [address] Urine 07/01/2024 3:43 PM CDT 07/01/2024 3:52 PM CDT Ilana Stevens MD LAB MICROBIOLOGY - GEN ERAL ORDERABLES Final Result MARY JANE PHAM [address] [facility] Department [place] [address] * (ABNORMAL) Urinalysis, microscopic only (07/01/2024 3:43 PM CDT) WBC, ur 0-5 0 - 5 /HPF Comment:Testing performed by : [facility] [address] [place] [address]., [address] RBC, ur 3-5(A) 0 - 2 /HPF MARY JANE PHAM Comment:Testing performed by : [facility] [address] [place] [address], [place]., [address] Epithelial cells, squamous, ur 1-5 0 - 5 /HPF MARY JANE PHAM Comment:Testing performed by : [address], [place]., [address] Mucous, ur Present(A) MARY JANE PHAM Comment:Testing performed by : [address], [place]., [address] Culture Reflex Comment Reflex conditions for urine culture (WBC >10) not met. MARY JANE PHAM Comment:Testing performed by : [facility] [address] [place]., [address] Urine 07/01/2024 3:43 PM CDT 07/01/2024 3:52 PM CDT us Ilana Stevens MD LAB URINE ORDERABLES F inal Result MARY JANE [address] [facility] Department [place] [address] * XR Chest 1 Vw [...] Romelia Bowen D.O. PS: PS Report ID: [id number] Reading Location: [id number] Procedure Note Romelia Bowen, DO - 07/01/2024 [...] Romelia Bowen D.O. PS: PS Report ID: [id number] Reading Location: [place] [address] us Ilana Stevens MD IMG XR PROCEDURES Deann l Result * ECG 12 lead (07/01/2024 2:05 PM CDT) Ventricular Rate EKG/Min [address] [facility] Atrial Rate 76 BPM [facility] MA-Interval (MSEC) 130 ms [facility] QRS-Interval (MSEC) 86 ms [facility] QT-Interval (MSEC) 386 ms [facility] QTc 434 ms [facility] P [place] 26 degrees [facility] R [place] 22 degrees [facility] T [place] 46 degrees [facility] Diagnosis Normal sinus rhythm Normal ECG When compared with ECG of 28-DEC-2023 12:49, No significant change was found Confirmed by DUTCH BURGOS M.D. ([id number]) on 07/01/2024 10:10:22 PM [facility] 07/01/2024 2:05 PM CDT 07/01/2024 10:10 PM CDT us Ilana Stevens MD ECG ORDERABLES Final Result [facility] * (ABNORMAL) Troponin T high-sensitivity series (baseline, 2hr, 4hr, 6hr) (07/01/2024 2:02 PM CDT) Trop T hs 27(H) <=14 ng/L Comment: Interpretive Data For further hscTnT resources including the diagnostic algorithm and an aid in interpretation, copy and paste this link: https://nrl.testcatalog.org/show/hsTrop Current Interpretive Data last revised 2020. Testing performed by: [address] [address] Blood 07/01/2024 2:02 PM CDT 07/01/2024 2:12 PM CDT us Ilana Stevens MD LAB BLOOD ORDERABLES F inal Result [facility] [address] [facility] Department [place] [address] * Influenza A/B, RSV, and COVID-19 PCR Nasopharyngeal (07/01/2024 2:02 PM CDT) COVID-19 RNA Negative Negative Comment:Testing performed by : [address] [address] Influenza A RNA Negative Negative [facility] Comment:Testing performed by : [address] [address] Influenza B RNA Negative Negative [facility] Comment:Testing performed by : [address] [address] RSV RNA Negative Negative [facility] Comment: Interpretive data: Testing performed by [facility]. This test is performed using the [employer] Xpert Xpress CoV-2/Flu/RSV plus assay. This is a multiplex, real-time reverse transcriptase PCR assay intended for the qualitative detection of nucleic acid from SARS-CoV-2, influenza A, influenza B, and respiratory syncytial virus. This assay has been cleared by the [place] Food and Drug administration. The performance characteristics have been verified by the [facility]. Results must be considered in the clinical context, and a negative result does not rule out infection. Interpretive Data last revised 2023 Testing performed by: [address] [address] Nasopharyngeal 07/01/2024 2: 02 PM CDT 07/01/2024 2:12 PM CDT Narrative MARY JANE - 07/01/2024 2:52 PM CDT Is the Patient experiencing symptoms consistent with COVID?->Yes Ilana Stevens MD LAB MICROBIOLOGY - GEN ERAL ORDERABLES Final Result MARY JANE [facility] [place] [address] * eGFR (07/01/2024 2:02 PM CDT) eGFR [...] last reviewed 2021. Testing performed by: [facility], [address] [place] [address]., [address] Blood 07/01/2024 2:02 PM CDT 07/01/2024 2:12 PM CDT Ilana Stevens MD LAB BLOOD ORDERABLES F inal Result MARY JANE [address] [facility] Department [place] [address] * Differential, auto (07/01/2024 2:02 PM CDT) [facility] Neutrophil abs 5.3 1.5 - 6.5 K/cumm Comment:Testing performed by : [address] [address] Imm gran abs 0.0 0.0 - 0.1 K/cumm [facility] [place] Comment:Testing performed by : [address] [address] Lymphocyte abs 2.6 0.8 - 3.3 K/cumm [facility] Comment:Testing performed by : [address] [address] Monocyte abs 0.8 0.2 - 0.8 K/cumm [facility] Comment:Testing performed by : [address] [address] Eosinophil abs 0.2 0.0 - 0.5 K/cumm [facility] Comment:Testing performed by : [address] [address] Basophil abs 0.0 0.0 - 0.1 K/cumm [facility] Comment:Testing performed by : [address] [address] Neutrophil pct 59.1 % [facility] Comment: Interpretive Data Percent cell count reference ranges are not reported, since discordance with absolute values may lead to misinterpretation of CBC data. Current Interpretive Data was last revised on 2017. Testing performed by: [address] [address] Imm gran pct 0.2 % [facility] Comment: Interpretive Data Percent cell count reference ranges are not reported, since discordance with absolute values may lead to misinterpretation of CBC data. Current Interpretive Data was last revised on 2017. Testing performed by: [address] [address] Lymphocyte pct 29.0 % [facility] [place] Comment: Interpretive Data Percent cell count reference ranges are not reported, since discordance with absolute values may lead to misinterpretation of CBC data. Current Interpretive Data was last revised on 2017. Testing performed by: [address] [address] Monocyte pct 9.3 % [facility] Comment: Interpretive Data Percent cell count reference ranges are not reported, since discordance with absolute values may lead to misinterpretation of CBC data. Current Interpretive Data was last revised on 2017. Testing performed by: [address] [address] Eosinophil pct 2.2 % [facility] Comment: Interpretive Data Percent cell count reference ranges are not reported, since discordance with absolute values may lead to misinterpretation of CBC data. Current Interpretive Data was last revised on 2017. Testing performed by: [address] [address] Basophil pct 0.2 % [facility] Comment: Interpretive Data Percent cell count reference ranges are not reported, since discordance with absolute values may lead to misinterpretation of CBC data. Current Interpretive Data was last revised on 2017. Testing performed by: [address] [address] Blood 07/01/2024 2:02 PM CDT 07/01/2024 2:12 PM CDT us Ilana Stevens MD LAB BLOOD ORDERABLES F inal Result MARY JANE [address] [facility] [place] [address] * Pro B-type natriuretic peptide (07/01/2024 2:02 [...] Last Revised Date: 2017. Testing performed by: [address] [address] Blood 07/01/2024 2:02 PM CDT 07/01/2024 2:12 PM CDT us Ilana Stevens MD LAB BLOOD ORDERABLES F inal Result [facility] [address] [facility] Department [place] [address] * (ABNORMAL) CBC with auto differential (07/01/2024 2:02 PM CDT) [facility] WBC 9.0 3.8 - 9.9 K/cumm Comment:Testing performed by : [address] [address] Hgb 13.2 11.9 - 15.5 g/dL MARY JANE PHAM Comment:Testing performed by : [address] [address] Hct 41.1 35.6 - 45.5 % MARY JANE PHAM Comment:Testing performed by : [address] [address] Plt 277 150 - 400 K/cumm MARY JANE PHAM Comment:Testing performed by : [address] [address] MPV 9.5 9.1 - 12.3 fL MARY JANE PHAM Comment:Testing performed by : [address] [address] RBC 4.53 3.90 - 5.20 M/cumm MARY JANE PHAM Comment:Testing performed by : [address] [address] MCV 90.7 81.3 - 96.4 fL MARY JANE Comment:Testing performed by : [address] [address] MCH 29.1 27.1 - 33.3 pg MARY JANE Comment:Testing performed by : [address], [address] MCHC 32.1(L) 32.3 - 35.7 g/dL MARY JANE Comment:Testing performed by : [address], [address] RDW CV 13.2 11.1 - 14.9 % MARY JANE Comment:Testing performed by : [address] [address] RDW SD 44.2 35.7 - 48.1 fL MARY JANE Comment:Testing performed by : [address] [address] NRBC abs 0.00 0.00 - 0.01 K/cumm MARY JANE Comment:Testing performed by : [address], [address] Blood 07/01/2024 2:02 PM CDT 07/01/2024 2:12 PM CDT us Ilana Stevens MD LAB BLOOD ORDERABLES F inal Result [facility] [address] [facility] Department [place] [address] * Comprehensive metabolic panel (07/01/2024 2:02 PM CDT) [facility] Sodium 137 135 - 145 mmol/L Comment:Testing performed by : [address] [address] Potassium, pl 4.2 3.3 - 4.9 mmol/L [facility] [place] Comment:Testing performed by : [address], [place]., [address] Chloride 101 97 - 110 mmol/L [facility] [place] [facility] Comment:Testing performed by : [address], [place]., [address] CO2 27 22 - 32 mmol/L MARY JANE Comment:Testing performed by : [address], [place]., [address] Anion gap 9 2 - 15 mmol/L [facility] Comment:Testing performed by : [address], [place]., [address] BUN 15 6 - 25 mg/dL [facility] Comment:Testing performed by : [address], [place]., [address] Creatinine 0.60 0.60 - 1.10 mg/dL [facility] [place] Comment:Testing performed by : [address] [address] Glucose 166 70 - 199 mg/dL [facility] [...] was last revised 2022. Testing performed by: [address] [address] Calcium 9.8 8.5 - 10.3 mg/dL [facility] Comment:Testing performed by : [address] [address] Bilirubin, total 0.5 0.1 - 1.2 mg/dL [facility] Comment:Testing performed by : [address] [address] Protein, pl 8.0 6.5 - 8.5 g/dL MARY JANE Comment:Testing performed by : [address] [address] Albumin 3.8 3.5 - 5.0 g/dL MARY JANE Comment:Testing performed by : [address] [address] Alk phos 72 40 - 130 Units/L MARY JANE Comment:Testing performed by : [address] [address] ALT 19 7 - 45 Units/L MARY JANE Comment:Testing performed by : [address] [address] AST 23 10 - 45 Units/L MARY JANE Comment:Testing performed by : [address] [address] Blood 07/01/2024 2:02 PM CDT 07/01/2024 2:12 PM CDT Ilana Stevens MD LAB BLOOD ORDERABLES F inal Result MARY JANE [address] [facility] Department [place] [address] * POCT glucose (05/26/2024 4:27 PM REVIEW SCHEDULING COORDINATOR) Glucose, POC 137 70 - 199 mg/dL Blood 05/26/2024 4:27 PM REVIEW SCHEDULING COORDINATOR 05/26/2024 4:27 PM REVIEW SCHEDULING COORDINATOR us Carlos Real MD LAB POCT ORDERABLES - DEVICE Fin al Result [facility] [place] [address] * POCT glucose (05/26/2024 11:38 AM REVIEW SCHEDULING COORDINATOR) Glucose, POC 146 70 - 199 mg/dL Blood 05/26/2024 11:3 8 AM REVIEW SCHEDULING COORDINATOR 05/26/2024 11:38 AM REVIEW SCHEDULING COORDINATOR Carlos Real MD LAB POCT ORDERABLES - DEVICE Fin al Result [facility] [place] [address] * POCT glucose (05/26/2024 8:12 AM REVIEW SCHEDULING COORDINATOR) Glucose, POC 134 70 - 199 mg/dL Blood 05/26/2024 8:12 AM REVIEW SCHEDULING COORDINATOR 05/26/2024 8:12 AM REVIEW SCHEDULING COORDINATOR Carlos Real MD LAB POCT ORDERABLES - DEVICE Fin al Result Performing Organization Address [facility] de Phone Number MARY JANE [facility] [place] [address] * eGFR (05/26/2024 12:05 AM REVIEW SCHEDULING COORDINATOR) eGFR >90 >=60 mL/min/1. 73 m2 Comment: [...] reviewed 2021. Blood 05/26/2024 12:0 5 AM REVIEW SCHEDULING COORDINATOR 05/26/2024 12:23 AM REVIEW SCHEDULING COORDINATOR Carlos Real MD LAB BLOOD ORDERABLES Final Resul t MARY JANE [facility] [place] [address] * (ABNORMAL) Differential, auto (05/26/2024 12:05 AM REVIEW SCHEDULING COORDINATOR) Neutrophil abs 6.4 1.5 - 6.5 K/cumm Imm gran abs 0.0 0.0 - 0.1 K/cumm [facility] Lymphocyte abs 2.9 0.8 - 3.3 K/cumm [facility] Monocyte abs 0.9(H) 0.2 - 0.8 K/cumm [facility] Eosinophil abs 0.3 0.0 - 0.5 K/cumm [facility] Basophil abs 0.0 0.0 - 0.1 K/cumm [facility] Neutrophil pct 60.4 % [facility] Comment: Interpretive Data Percent cell count reference ranges are not reported, since discordance with absolute values may lead to misinterpretation of CBC data. Current Interpretive Data was last revised on 2017. Imm gran pct 0.4 % [facility] Comment: Interpretive Data Percent cell count reference ranges are not reported, since discordance with absolute values may lead to misinterpretation of CBC data. Current Interpretive Data was last revised on 2017. Lymphocyte pct 27.5 % [facility] Comment: Interpretive Data Percent cell count reference ranges are not reported, since discordance with absolute values may lead to misinterpretation of CBC data. Current Interpretive Data was last revised on 2017. Monocyte pct 8.2 % [facility] Comment: Interpretive Data Percent cell count reference ranges are not reported, since discordance with absolute values may lead to misinterpretation of CBC data. Current Interpretive Data was last revised on 2017. Eosinophil pct 3.1 % [facility] Comment: Interpretive Data Percent cell count reference ranges are not reported, since discordance with absolute values may lead to misinterpretation of CBC data. Current Interpretive Data was last revised on 2017. Basophil pct 0.4 % [facility] [place] Comment: Interpretive Data Percent cell count reference ranges are not reported, since discordance with absolute values may lead to misinterpretation of CBC data. Current Interpretive Data was last revised on 2017. Blood 05/26/2024 12:0 5 AM REVIEW SCHEDULING COORDINATOR 05/26/2024 12:07 AM REVIEW SCHEDULING COORDINATOR Carlos Real MD LAB BLOOD ORDERABLES Final Resul t Performing Organization Address [facility] de Phone Number [facility] [place] [address] * (ABNORMAL) CBC with auto differential (05/26/2024 12:05 AM REVIEW SCHEDULING COORDINATOR) WBC 10.6(H) 3.8 - 9.9 K/cumm Hgb 12.5 11.9 - 15.5 g/dL [facility] Hct 39.2 35.6 - 45.5 % [facility] Plt 248 150 - 400 K/cumm [facility] MPV 9.7 9.1 - 12.3 fL [facility] RBC 4.32 3.90 - 5.20 M/cumm [facility] MCV 90.7 81.3 - 96.4 fL [facility] MCH 28.9 27.1 - 33.3 pg [facility] MCHC 31.9(L) 32.3 - 35.7 g/dL [facility] RDW CV 13.5 11.1 - 14.9 % [facility] RDW SD 45.1 35.7 - 48.1 fL [facility] NRBC abs 0.00 0.00 - 0.01 K/cumm [facility] Blood 05/26/2024 12:0 5 AM REVIEW SCHEDULING COORDINATOR 05/26/2024 12:07 AM REVIEW SCHEDULING COORDINATOR Carlos Real MD LAB BLOOD ORDERABLES Final Resul t Performing Organization Address [facility] Co de Phone Number [facility] [place] [address] * Phosphorus (05/26/2024 12:05 AM REVIEW SCHEDULING COORDINATOR) Pathologist [facility] Phosphorus, pl 3.2 2.3 - 4.5 mg/dL Blood 05/26/2024 12:0 5 AM REVIEW SCHEDULING COORDINATOR 05/26/2024 12:08 AM REVIEW SCHEDULING COORDINATOR Carlos Real MD LAB BLOOD ORDERABLES Final Resul t Performing Organization Address City/[facility] de Phone Number [facility] [place] [address] * Magnesium (05/26/2024 12:05 AM REVIEW SCHEDULING COORDINATOR) Pathologist [facility] Magnesium 1.8 1.4 - 2.5 mg/dL Blood 05/26/2024 12:0 5 AM REVIEW SCHEDULING COORDINATOR 05/26/2024 12:08 AM REVIEW SCHEDULING COORDINATOR Carlos Real MD LAB BLOOD ORDERABLES Final Resul t Performing Organization Address [facility] de Phone Number [facility] [place] [address] * (ABNORMAL) Comprehensive metabolic panel (05/26/2024 12:05 AM REVIEW SCHEDULING COORDINATOR) Pathologist [facility] Sodium 136 135 - 145 mmol/L Potassium, pl 4.2 3.3 - 4.9 mmol/L [facility] Chloride 101 97 - 110 mmol/L [facility] CO2 29 22 - 32 mmol/L [facility] Anion gap 6 2 - 15 mmol/L [facility] BUN 19 6 - 25 mg/dL [facility] Creatinine 0.67 0.60 - 1.10 mg/dL [facility] Glucose 164 70 - 199 mg/dL [facility] Comment: Interpretive Data Fasting [...] 2022. Calcium 9.4 8.5 - 10.3 mg/dL [facility] Bilirubin, total 0.4 0.1 - 1.2 mg/dL [facility] [place] Protein, pl 7.1 6.5 - 8.5 g/dL [facility] Albumin 3.3(L) 3.5 - 5.0 g/dL [facility] [place] Alk phos 65 40 - 130 Units/L [facility] ALT 17 7 - 45 Units/L [facility] AST 19 10 - 45 Units/L [facility] [place] Blood 05/26/2024 12:0 5 AM REVIEW SCHEDULING COORDINATOR 05/26/2024 12:08 AM REVIEW SCHEDULING COORDINATOR Carlos Real MD LAB BLOOD ORDERABLES Final Resul t Performing Organization Address [facility] Phone Number [facility] [place] [address] * POCT glucose (05/25/2024 7:44 PM REVIEW SCHEDULING COORDINATOR) Glucose, POC 160 70 - 199 mg/dL Blood 05/25/2024 7:44 PM REVIEW SCHEDULING COORDINATOR 05/25/2024 7:44 PM REVIEW SCHEDULING COORDINATOR Result [facility] Carlos Real MD LAB POCT ORDERABLES - DEVICE Fin al Result Performing Organization Address [facility] de Phone Number [facility] [place] [address] * POCT glucose (05/25/2024 5:24 PM REVIEW SCHEDULING COORDINATOR) Glucose, POC 152 70 - 199 mg/dL Blood 05/25/2024 5:24 PM REVIEW SCHEDULING COORDINATOR 05/25/2024 5:24 PM REVIEW SCHEDULING COORDINATOR Carlos Real MD LAB POCT ORDERABLES - DEVICE Fin al Result Performing Organization Address [facility] Phone Number [facility] [place] [address] * POCT glucose (05/25/2024 11:37 AM REVIEW SCHEDULING COORDINATOR) Glucose, POC 143 70 - 199 mg/dL Blood 05/25/2024 11:3 7 AM REVIEW SCHEDULING COORDINATOR 05/25/2024 11:37 AM REVIEW SCHEDULING COORDINATOR Carlos Real MD LAB POCT ORDERABLES - DEVICE Fin al Result Performing Organization Address [facility] [place] [address] * POCT glucose (05/25/2024 7:27 AM REVIEW SCHEDULING COORDINATOR) Glucose, POC 134 70 - 199 mg/dL Blood 05/25/2024 7:27 AM REVIEW SCHEDULING COORDINATOR 05/25/2024 7:27 AM REVIEW SCHEDULING COORDINATOR Carlos Real MD LAB POCT ORDERABLES - DEVICE Fin al Result Performing Organization Address City/[facility] Co de Phone Number [facility] [place] [address] * eGFR (05/25/2024 12:20 AM REVIEW SCHEDULING COORDINATOR) eGFR >90 >=60 mL/min/1. 73 m2 Comment: [...] reviewed 2021. Blood 05/25/2024 12:2 0 AM REVIEW SCHEDULING COORDINATOR 05/25/2024 12:43 AM REVIEW SCHEDULING COORDINATOR us Naila Guzman COPY MESSENGER LAB BLOOD ORDERABLES Final Result [facility] [place] [address] * Differential, auto (05/25/2024 12:20 AM REVIEW SCHEDULING COORDINATOR) Neutrophil abs 5.9 1.5 - 6.5 K/cumm Imm gran abs 0.0 0.0 - 0.1 K/cumm [facility] Lymphocyte abs 2.4 0.8 - 3.3 K/cumm [facility] Monocyte abs 0.8 0.2 - 0.8 K/cumm [facility] Eosinophil abs 0.3 0.0 - 0.5 K/cumm [facility] Basophil abs 0.0 0.0 - 0.1 K/cumm [facility] Neutrophil pct 62.6 % [facility] Comment: Interpretive Data Percent cell count reference ranges are not reported, since discordance with absolute values may lead to misinterpretation of CBC data. Current Interpretive Data was last revised on 2017. Imm gran pct 0.3 % [facility] Comment: Interpretive Data Percent cell count reference ranges are not reported, since discordance with absolute values may lead to misinterpretation of CBC data. Current Interpretive Data was last revised on 2017. Lymphocyte pct 24.8 % [facility] Comment: Interpretive Data Percent cell count reference ranges are not reported, since discordance with absolute values may lead to misinterpretation of CBC data. Current Interpretive Data was last revised on 2017. Monocyte pct 8.8 % [facility] Comment: Interpretive Data Percent cell count reference ranges are not reported, since discordance with absolute values may lead to misinterpretation of CBC data. Current Interpretive Data was last revised on 2017. Eosinophil pct 3.2 % [facility] Comment: Interpretive Data Percent cell count reference ranges are not reported, since discordance with absolute values may lead to misinterpretation of CBC data. Current Interpretive Data was last revised on 2017. Basophil pct 0.3 % [facility] Comment: Interpretive Data Percent cell count reference ranges are not reported, since discordance with absolute values may lead to misinterpretation of CBC data. Current Interpretive Data was last revised on 2017. Blood 05/25/2024 12:2 0 AM REVIEW SCHEDULING COORDINATOR 05/25/2024 12:29 AM REVIEW SCHEDULING COORDINATOR us Naila Guzman NP LAB BLOOD ORDERABLES Final Result [facility] [place] [address] * (ABNORMAL) CBC with auto differential (05/25/2024 12:20 AM REVIEW SCHEDULING COORDINATOR) Pathologist [facility] WBC 9.5 3.8 - 9.9 K/cumm Hgb 12.8 11.9 - 15.5 g/dL [facility] Hct 40.0 35.6 - 45.5 % [facility] Plt 246 150 - 400 K/cumm [facility] MPV 9.8 9.1 - 12.3 fL [facility] RBC 4.42 3.90 - 5.20 M/cumm [facility] MCV 90.5 81.3 - 96.4 fL [facility] MCH 29.0 27.1 - 33.3 pg [facility] MCHC 32.0(L) 32.3 - 35.7 g/dL [facility] RDW CV 13.5 11.1 - 14.9 % [facility] RDW SD 45.3 35.7 - 48.1 fL [facility] NRBC abs 0.00 0.00 - 0.01 K/cumm [facility] Blood 05/25/2024 12:2 0 AM REVIEW SCHEDULING COORDINATOR 05/25/2024 12:29 AM REVIEW SCHEDULING COORDINATOR Naila Guzman NP LAB BLOOD [place] [address] * Phosphorus (05/25/2024 12:20 AM REVIEW SCHEDULING COORDINATOR) Pathologist [facility] Phosphorus, pl 3.1 2.3 - 4.5 mg/dL Blood 05/25/2024 12:2 0 AM REVIEW SCHEDULING COORDINATOR 05/25/2024 12:29 AM REVIEW SCHEDULING COORDINATOR Naila Guzman COPY MESSENGER LAB BLOOD ORDERABLES Final Result Performing Organization Address [facility] Co de Phone Number [facility] [place] [address] * Magnesium (05/25/2024 12:20 AM REVIEW SCHEDULING COORDINATOR) [facility] Magnesium 1.9 1.4 - 2.5 mg/dL Blood 05/25/2024 12:2 0 AM REVIEW SCHEDULING COORDINATOR 05/25/2024 12:29 AM REVIEW SCHEDULING COORDINATOR Naila Guzman NP LAB BLOOD ORDERABLES Final Result Performing Organization Address City/[facility] Co de Phone Number [facility] [place] [address] * (ABNORMAL) Comprehensive metabolic panel (05/25/2024 12:20 AM REVIEW SCHEDULING COORDINATOR) Pathologist [facility] Sodium 138 135 - 145 mmol/L Potassium, pl 4.4 3.3 - 4.9 mmol/L [facility] Chloride 101 97 - 110 mmol/L [facility] CO2 29 22 - 32 mmol/L [facility] Anion gap 8 2 - 15 mmol/L [facility] BUN 20 6 - 25 mg/dL [facility] Creatinine 0.69 0.60 - 1.10 mg/dL [facility] Glucose 156 70 - 199 mg/dL [facility] Comment: Interpretive Data Fasting [...] 16 10 - 45 Units/L [facility] Blood 05/25/2024 12:2 0 AM REVIEW SCHEDULING COORDINATOR 05/25/2024 12:29 AM REVIEW SCHEDULING COORDINATOR us Naila Guzman NP LAB BLOOD ORDERABLES Final Result Performing Organization Address [facility] Co de Phone Number [facility] [place] [address] * POCT glucose (05/24/2024 8:13 PM REVIEW SCHEDULING COORDINATOR) [facility] Signature Glucose, POC 171 70 - 199 mg/dL Blood 05/24/2024 8:13 PM REVIEW SCHEDULING COORDINATOR 05/24/2024 8:13 PM REVIEW SCHEDULING COORDINATOR us Carlos Real MD LAB POCT ORDERABLES - DEVICE Fin al Result Performing Organization Address [facility] Co de Phone Number [facility] [place] [address] * POCT glucose (05/24/2024 5:17 PM REVIEW SCHEDULING COORDINATOR) Glucose, POC 133 70 - 199 mg/dL Blood 05/24/2024 5:17 PM REVIEW SCHEDULING COORDINATOR 05/24/2024 5:17 PM REVIEW SCHEDULING COORDINATOR Carlos Real MD LAB POCT ORDERABLES - DEVICE Fin al Result Performing Organization Address [facility] de Phone Number [facility] [place] [address] * POCT glucose (05/24/2024 12:49 PM REVIEW SCHEDULING COORDINATOR) Glucose, POC 180 70 - 199 mg/dL Blood 05/24/2024 12:4 9 PM REVIEW SCHEDULING COORDINATOR 05/24/2024 12:49 PM REVIEW SCHEDULING COORDINATOR Carlos Real MD LAB POCT ORDERABLES - DEVICE Fin al Result Performing Organization Address [facility] de Phone Number [facility] [place] [address] * POCT glucose (05/24/2024 9:22 AM REVIEW SCHEDULING COORDINATOR) Pathologist [facility] Glucose, POC 139 70 - 199 mg/dL Blood 05/24/2024 9:22 AM REVIEW SCHEDULING COORDINATOR 05/24/2024 9:22 AM REVIEW SCHEDULING COORDINATOR Carlos Real MD LAB POCT ORDERABLES - DEVICE Fin al Result Performing Organization Address [facility] de Phone Number [facility] [place] [address] * Herpes Simplex Virus (HSV) PCR Oral (05/24/2024 8:47 AM REVIEW SCHEDULING COORDINATOR) [facility] HSV DNA Not Detected Not Detected [facility] Comment: Interpretive Data This assay is [...] reviewed on 08/21/2018 Oral 05/24/2024 8:47 AM REVIEW SCHEDULING COORDINATOR 05/24/2024 9:24 AM REVIEW SCHEDULING COORDINATOR Narrative [facility] - 05/24/2024 4:28 PM REVIEW SCHEDULING COORDINATOR Oral ulcer swab Naila Guzman NP LAB MICROBIOLOGY - GENERAL ORDERABLES Final Result [facility] [place] [address] [facility] * POCT glucose (05/24/2024 8:22 AM REVIEW SCHEDULING COORDINATOR) Pathologist [facility] Glucose, POC 132 70 - 199 mg/dL Blood 05/24/2024 8:22 AM REVIEW SCHEDULING COORDINATOR 05/24/2024 8:22 AM REVIEW SCHEDULING COORDINATOR Carlos Real MD LAB POCT ORDERABLES - DEVICE Fin al Result Performing Organization Address City/[facility]/ZIP Co de Phone Number [facility] [place] [address] * eGFR (05/24/2024 12:29 AM REVIEW SCHEDULING COORDINATOR) eGFR 87 >=60 mL/min/1. 73 m2 Comment: [...] reviewed 2021. Blood 05/24/2024 12:2 9 AM REVIEW SCHEDULING COORDINATOR 05/24/2024 12:54 AM REVIEW SCHEDULING COORDINATOR us Naila Guzman COPY MESSENGER LAB BLOOD ORDERABLES Final Result [facility] [place] [address] * (ABNORMAL) Differential, auto (05/24/2024 12:29 AM REVIEW SCHEDULING COORDINATOR) Neutrophil abs 5.3 1.5 - 6.5 K/cumm Imm gran abs 0.0 0.0 - 0.1 K/cumm [facility] Lymphocyte abs 3.0 0.8 - 3.3 K/cumm [facility] Monocyte abs 0.9(H) 0.2 - 0.8 K/cumm [facility] Eosinophil abs 0.3 0.0 - 0.5 K/cumm [facility] Basophil abs 0.0 0.0 - 0.1 K/cumm [facility] Neutrophil pct 55.8 % [facility] Comment: Interpretive Data Percent cell count reference ranges are not reported, since discordance with absolute values may lead to misinterpretation of CBC data. Current Interpretive Data was last revised on 2017. Imm gran pct 0.4 % [facility] Comment: Interpretive Data Percent cell count reference ranges are not reported, since discordance with absolute values may lead to misinterpretation of CBC data. Current Interpretive Data was last revised on 2017. Lymphocyte pct 31.4 % [facility] Comment: Interpretive Data Percent cell count reference ranges are not reported, since discordance with absolute values may lead to misinterpretation of CBC data. Current Interpretive Data was last revised on 2017. Monocyte pct 9.0 % [facility] Comment: Interpretive Data Percent cell count reference ranges are not reported, since discordance with absolute values may lead to misinterpretation of CBC data. Current Interpretive Data was last revised on 2017. Eosinophil pct 3.0 % [facility] Comment: Interpretive Data Percent cell count reference ranges are not reported, since discordance with absolute values may lead to misinterpretation of CBC data. Current Interpretive Data was last revised on 2017. Basophil pct 0.4 % [facility] Comment: Interpretive Data Percent cell count reference ranges are not reported, since discordance with absolute values may lead to misinterpretation of CBC data. Current Interpretive Data was last revised on 2017. Blood 05/24/2024 12:2 9 AM REVIEW SCHEDULING COORDINATOR 05/24/2024 12:54 AM REVIEW SCHEDULING COORDINATOR us Naila Guzman COPY MESSENGER LAB BLOOD ORDERABLES Final Result [facility] [place] [address] * CBC with auto differential (05/24/2024 12:29 AM REVIEW SCHEDULING COORDINATOR) WBC 9.5 3.8 - 9.9 K/cumm Hgb 12.6 11.9 - 15.5 g/dL [facility] Hct 39.0 35.6 - 45.5 % [facility] Plt 223 150 - 400 K/cumm [facility] MPV 9.6 9.1 - 12.3 fL [facility] RBC 4.23 3.90 - 5.20 M/cumm [facility] MCV 92.2 81.3 - 96.4 fL [facility] MCH 29.8 27.1 - 33.3 pg [facility] MCHC 32.3 32.3 - 35.7 g/dL [facility] RDW CV 13.7 11.1 - 14.9 % [facility] RDW SD 46.5 35.7 - 48.1 fL [facility] NRBC abs 0.00 0.00 - 0.01 K/cumm [facility] Blood 05/24/2024 12:2 9 AM REVIEW SCHEDULING COORDINATOR 05/24/2024 12:54 AM REVIEW SCHEDULING COORDINATOR us Naila Guzman COPY MESSENGER LAB BLOOD ORDERABLES Final Result Performing Organization Address City/[facility] Co de Phone Number [facility] [place] [address] * Phosphorus (05/24/2024 12:29 AM REVIEW SCHEDULING COORDINATOR) [facility] Phosphorus, pl 3.6 2.3 - 4.5 mg/dL Blood 05/24/2024 12:2 9 AM REVIEW SCHEDULING COORDINATOR 05/24/2024 12:54 AM REVIEW SCHEDULING COORDINATOR us Naila Guzman NP LAB BLOOD ORDERABLES Final Result Performing Organization Address [facility] [place] [address] * Magnesium (05/24/2024 12:29 AM REVIEW SCHEDULING COORDINATOR) [facility] Magnesium 1.9 1.4 - 2.5 mg/dL Blood 05/24/2024 12:2 9 AM REVIEW SCHEDULING COORDINATOR 05/24/2024 12:54 AM REVIEW SCHEDULING COORDINATOR Naila Guzman NP LAB BLOOD ORDERABLES Final Result Performing Organization Address [facility] [place] [address] * (ABNORMAL) Comprehensive metabolic panel (05/24/2024 12:29 AM REVIEW SCHEDULING COORDINATOR) [facility] Sodium 139 135 - 145 mmol/L Potassium, pl 4.3 3.3 - 4.9 mmol/L [facility] Chloride 103 97 - 110 mmol/L [facility] CO2 29 22 - 32 mmol/L [facility] Anion gap 7 2 - 15 mmol/L [facility] BUN 19 6 - 25 mg/dL [facility] Creatinine 0.75 0.60 - 1.10 mg/dL [facility] Glucose 157 70 - 199 mg/dL [facility] Comment: Interpretive Data Fasting [...] 2022. Calcium 9.2 8.5 - 10.3 mg/dL [facility] Bilirubin, total 0.4 0.1 - 1.2 mg/dL [facility] Protein, pl 7.1 6.5 - 8.5 g/dL [facility] Albumin 3.3(L) 3.5 - 5.0 g/dL [facility] Alk phos 65 40 - 130 Units/L [facility] ALT 18 7 - 45 Units/L [facility] AST 17 10 - 45 Units/L [facility] Blood 05/24/2024 12:2 9 AM REVIEW SCHEDULING COORDINATOR 05/24/2024 12:54 AM REVIEW SCHEDULING COORDINATOR us Naila Guzman COPY MESSENGER LAB BLOOD ORDERABLES Final Result Performing Organization Address [facility]/ZIP Co de Phone Number [facility] [place] [address] * POCT glucose (05/23/2024 8:16 PM REVIEW SCHEDULING COORDINATOR) [facility] Glucose, POC 145 70 - 199 mg/dL Blood 05/23/2024 8:16 PM REVIEW SCHEDULING COORDINATOR 05/23/2024 8:16 PM REVIEW SCHEDULING COORDINATOR Carlos Real MD LAB POCT ORDERABLES - DEVICE Fin al Result Performing Organization Address [facility]/ZIP Co de Phone Number [facility] [place] [address] * POCT glucose (05/23/2024 6:14 PM REVIEW SCHEDULING COORDINATOR) Glucose, POC 181 70 - 199 mg/dL Blood 05/23/2024 6:14 PM REVIEW SCHEDULING COORDINATOR 05/23/2024 6:14 PM REVIEW SCHEDULING COORDINATOR Carlos Real MD LAB POCT ORDERABLES - DEVICE Fin al Result Performing Organization Address City/[facility] [place] [address] * POCT glucose (05/23/2024 12:17 PM REVIEW SCHEDULING COORDINATOR) Glucose, POC 159 70 - 199 mg/dL Blood 05/23/2024 12:1 7 PM REVIEW SCHEDULING COORDINATOR 05/23/2024 12:17 PM REVIEW SCHEDULING COORDINATOR Cem Knapp MD LAB POCT ORDERABLES - DEVIC E Final Result Performing Organization Address [facility] [place] [address] * US Vein Duplex Lower Extremity Bilateral Complete (05/23/2024 11:45 AM REVIEW SCHEDULING COORDINATOR) LV EF % CONS SCIMAGE Anatomical Region Laterality Modality Vascular Bilateral Ultrasound 05/23/2024 11:1 2 AM REVIEW SCHEDULING COORDINATOR Narrative 05/23/2024 9:43 PM REVIEW SCHEDULING COORDINATOR [employer] - Department of Vascular Surgery, Vascular Laboratory [address] [place] [id number] Lower Extremity Venous Ultrasound Report Patient Name: MOHSEN MARQUES M : 1955 (68y 11m) Study Date: 05/23/2024 11:12:03 AM Gender: F Tech: VELVET Location: [id number] Ref Provider: CARLOS REAL Quality: Adequate Order Provider: CARLOS REAL PROCEDURES: Vascular Report: Venous Duplex imaging was performed bilaterally in the lower extremities. The common femoral, femoral, popliteal, posterior tibial, peroneal veins were evaluated for patency, spontaneity and phasicity with Doppler, compression and augmentation maneuvers. Great saphenous vein proximal at the junction was evaluated with compression maneuvers. INDICATIONS: Localized edema. FINDINGS: Performing Devulcanizer Charger: Marlys Castillo RVT. Bilateral: Venous Doppler signals [...] Vu Obregon MD, FACS 05/23/2024 9:42:19 PM REVIEW SCHEDULING COORDINATOR Procedure Note Vu Obregon MD - 05/23/2024 [facility] - Department of Vascular Surgery,Vascular Laboratory [address] [place], [place] [id number] Lower Extremity Venous Ultrasound Report Patient Name: MOHSEN MARQEUS M : 1955 (68y 11m) Study Date: 05/23/2024 11:12:03 AM Gender: F Tech: VELVET Location: [id number] Ref Provider: CARLOS REAL Quality: Adequate Order Provider: CARLOS REAL PROCEDURES: Vascular Report: Venous Duplex imaging was performed bilaterally in the lower extremities.The common femoral, femoral, popliteal, posterior tibial, peroneal veins wereevaluated for patency, spontaneity and phasicity with Doppler, compression and augmentationmaneuvers. Great saphenous vein proximal at the junction was evaluated with compressionmaneuvers. INDICATIONS: Localized edema. FINDINGS: Performing Devulcanizer Charger: Marlys Castillo RVT. Bilateral: Venous Doppler signals [...] Vu Obregon MD FACS 05/23/2024 9:42:19 PM REVIEW SCHEDULING COORDINATOR Carlos Real MD [facility] PROCEDURES Final Result * (ABNORMAL) POCT glucose (05/23/2024 8:16 AM REVIEW SCHEDULING COORDINATOR) Glucose, POC 204(H) 70 - 199 mg/dL Blood 05/23/2024 8:16 AM REVIEW SCHEDULING COORDINATOR 05/23/2024 8:16 AM REVIEW SCHEDULING COORDINATOR Cem Knapp MD LAB POCT ORDERABLES - DEVIC E Final Result [facility] Department [place] [address] * (ABNORMAL) Differential, auto (05/23/2024 2:30 AM REVIEW SCHEDULING COORDINATOR) Neutrophil abs 8.0(H) 1.5 - 6.5 K/cumm Imm gran abs 0.1 0.0 - 0.1 K/cumm [facility] Lymphocyte abs 2.6 0.8 - 3.3 K/cumm [facility] Monocyte abs 1.0(H) 0.2 - 0.8 K/cumm [facility] Eosinophil abs 0.3 0.0 - 0.5 K/cumm [facility] Basophil abs 0.0 0.0 - 0.1 K/cumm [facility] Neutrophil pct 66.5 % [facility] Comment: Interpretive Data Percent cell count reference ranges are not reported, since discordance with absolute values may lead to misinterpretation of CBC data. Current Interpretive Data was last revised on 2017. Imm gran pct 0.5 % [facility] Comment: Interpretive Data Percent cell count reference ranges are not reported, since discordance with absolute values may lead to misinterpretation of CBC data. Current Interpretive Data was last revised on 2017. Lymphocyte pct 21.9 % [facility] Comment: Interpretive Data Percent cell count reference ranges are not reported, since discordance with absolute values may lead to misinterpretation of CBC data. Current Interpretive Data was last revised on 2017. Monocyte pct 8.5 % [facility] Comment: Interpretive Data Percent cell count reference ranges are not reported, since discordance with absolute values may lead to misinterpretation of CBC data. Current Interpretive Data was last revised on 2017. Eosinophil pct 2.3 % [facility] Comment: Interpretive Data Percent cell count reference ranges are not reported, since discordance with absolute values may lead to misinterpretation of CBC data. Current Interpretive Data was last revised on 2017. Basophil pct 0.3 % [facility] Comment: Interpretive Data Percent cell count reference ranges are not reported, since discordance with absolute values may lead to misinterpretation of CBC data. Current Interpretive Data was last revised on 2017. Blood 05/23/2024 2:30 AM REVIEW SCHEDULING COORDINATOR 05/23/2024 1:03 AM REVIEW SCHEDULING COORDINATOR us Naila Guzman COPY MESSENGER LAB BLOOD ORDERABLES Final Result [facility] Department of Laboratories [place], [place] [id number] * (ABNORMAL) CBC with auto differential (05/23/2024 2:30 AM REVIEW SCHEDULING COORDINATOR) WBC 11.9(H) 3.8 - 9.9 K/cumm Hgb 12.8 11.9 - 15.5 g/dL [facility] Hct 39.6 35.6 - 45.5 % [facility] [place] Plt 254 150 - 400 K/cumm [facility] MPV 9.7 9.1 - 12.3 fL [facility] RBC 4.43 3.90 - 5.20 M/cumm [facility] MCV 89.4 81.3 - 96.4 fL [facility] MCH 28.9 27.1 - 33.3 pg [facility] MCHC 32.3 32.3 - 35.7 g/dL [facility] RDW CV 13.7 11.1 - 14.9 % [facility] RDW SD 44.6 35.7 - 48.1 fL [facility] NRBC abs 0.00 0.00 - 0.01 K/cumm [facility] Blood 05/23/2024 2:30 AM REVIEW SCHEDULING COORDINATOR 05/23/2024 1:03 AM REVIEW SCHEDULING COORDINATOR us Naila Guzman COPY MESSENGER LAB BLOOD ORDERABLES Final Result Performing Organization Address City/State/[facility] Co de Phone Number [facility] [place] [address] * eGFR (05/23/2024 12:42 AM REVIEW SCHEDULING COORDINATOR) eGFR 84 >=60 mL/min/1. 73 m2 Comment: [...] reviewed 2021. Blood 05/23/2024 12:4 2 AM REVIEW SCHEDULING COORDINATOR 05/23/2024 1:02 AM REVIEW SCHEDULING COORDINATOR Naila Guzman NP LAB BLOOD ORDERABLES Final Result Performing Organization Address [facility] de Phone Number [facility] [place] [address] * Type and screen (05/23/2024 12:42 AM REVIEW SCHEDULING COORDINATOR) ABO Rh O Positive Dilcia, indirect Negative [facility] Blood 05/23/2024 12:4 2 AM REVIEW SCHEDULING COORDINATOR 05/23/2024 12:52 AM REVIEW SCHEDULING COORDINATOR Narrative [facility] - 05/23/2024 1:53 AM REVIEW SCHEDULING COORDINATOR Has the patient had Daratumumab or Isatuximab in the past 6 months?->Unknown Naila Guzman NP LAB BLOOD BANK TEST ORDERA BLES Final Result Performing Organization Address [facility] de Phone Number [facility] [place] [address] * Uric acid (05/23/2024 12:42 AM REVIEW SCHEDULING COORDINATOR) Pathologist [facility] Uric acid 5.5 2.5 - 7.0 mg/dL Blood 05/23/2024 12:4 2 AM REVIEW SCHEDULING COORDINATOR 05/23/2024 1:02 AM REVIEW SCHEDULING COORDINATOR Narrative [facility] - 05/23/2024 1:34 AM REVIEW SCHEDULING COORDINATOR Monday and only. Morning draw. . Naila Guzman NP LAB BLOOD ORDERABLES Final Result Performing Organization Address [facility] [place] [address] * Phosphorus (05/23/2024 12:42 AM REVIEW SCHEDULING COORDINATOR) Phosphorus, pl 4.4 2.3 - 4.5 mg/dL Blood 05/23/2024 12:4 2 AM REVIEW SCHEDULING COORDINATOR 05/23/2024 1:02 AM REVIEW SCHEDULING COORDINATOR Naila Guzman NP LAB BLOOD ORDERABLES Final Result Performing Organization Address [facility] de Phone Number [facility] [place] [address] * Magnesium (05/23/2024 12:42 AM REVIEW SCHEDULING COORDINATOR) [facility] Magnesium 1.9 1.4 - 2.5 mg/dL Blood 05/23/2024 12:4 2 AM REVIEW SCHEDULING COORDINATOR 05/23/2024 1:02 AM REVIEW SCHEDULING COORDINATOR Naila Guzman NP LAB BLOOD ORDERABLES Final Result Performing Organization Address [facility] de Phone Number [facility] [place] [address] * Lactate dehydrogenase (LD) (05/23/2024 12:42 AM REVIEW SCHEDULING COORDINATOR) [facility] Lactate dehydrogenase (LDH) 247 100 - 250 Units/L Blood 05/23/2024 12:4 2 AM REVIEW SCHEDULING COORDINATOR 05/23/2024 1:02 AM REVIEW SCHEDULING COORDINATOR Narrative [facility] - 05/23/2024 1:34 AM REVIEW SCHEDULING COORDINATOR Monday and only. Morning draw. Naila Guzman NP LAB BLOOD ORDERABLES Final Result Performing Organization Address [facility] [place] [address] * Comprehensive metabolic panel (05/23/2024 12:42 AM REVIEW SCHEDULING COORDINATOR) [facility] Sodium 136 135 - 145 mmol/L Potassium, pl 4.3 3.3 - 4.9 mmol/L [facility] Chloride 101 97 - 110 mmol/L [facility] CO2 29 22 - 32 mmol/L [facility] Anion gap 6 2 - 15 mmol/L [facility] BUN 18 6 - 25 mg/dL [facility] Creatinine 0.77 0.60 - 1.10 mg/dL [facility] Glucose 194 70 - 199 mg/dL [facility] Comment: Interpretive Data Fasting [...] 2022. Calcium 9.5 8.5 - 10.3 mg/dL [facility] Bilirubin, total 0.5 0.1 - 1.2 mg/dL [facility] Protein, pl 7.4 6.5 - 8.5 g/dL [facility] Albumin 3.5 3.5 - 5.0 g/dL [facility] Alk phos 71 40 - 130 Units/L [facility] ALT 19 7 - 45 Units/L [facility] AST 22 10 - 45 Units/L [facility] Blood 05/23/2024 12:4 2 AM REVIEW SCHEDULING COORDINATOR 05/23/2024 1:02 AM REVIEW SCHEDULING COORDINATOR us Naila Guzman NP LAB BLOOD ORDERABLES Final Result [facility] [place] [address] * (ABNORMAL) POCT glucose (05/22/2024 8:56 PM REVIEW SCHEDULING COORDINATOR) [facility] Glucose, POC 210(H) 70 - 199 mg/dL Blood 05/22/2024 8:56 PM REVIEW SCHEDULING COORDINATOR 05/22/2024 8:56 PM REVIEW SCHEDULING COORDINATOR us Cem Knapp MD LAB POCT ORDERABLES - DEVIC E Final Result Performing Organization Address [facility] Co de Phone Number [facility] [place] [address] * POCT glucose (05/22/2024 6:09 PM REVIEW SCHEDULING COORDINATOR) Glucose, POC 142 70 - 199 mg/dL Blood 05/22/2024 6:09 PM REVIEW SCHEDULING COORDINATOR 05/22/2024 6:09 PM REVIEW SCHEDULING COORDINATOR us Leo Henry MD LAB POCT ORDERABLES - NILESH CE Final Result Performing Organization Address [facility] Co de Phone Number [facility] [place] [address] * POCT glucose (05/22/2024 4:26 PM REVIEW SCHEDULING COORDINATOR) Glucose, POC 133 70 - 199 mg/dL Blood 05/22/2024 4:26 PM REVIEW SCHEDULING COORDINATOR 05/22/2024 4:26 PM REVIEW SCHEDULING COORDINATOR us Leo Henry MD LAB POCT ORDERABLES - NILESH CE Final Result Performing Organization Address [facility] Co de Phone Number [facility] [place] [address] * CT Abdomen Pelvis W Contrast (05/22/2024 2:32 PM REVIEW SCHEDULING COORDINATOR) Anatomical Region Laterality Modality Body N/A Computed Tomogra phy 05/22/2024 4:35 PM REVIEW SCHEDULING COORDINATOR Impressions 05/22/2024 5:16 PM REVIEW SCHEDULING COORDINATOR No acute findings within the abdomen or pelvis. Dictated by: Yesi Mendes M.D. The radiology attending physician has personally reviewed this study, and had reviewed and/or edited this written report and agrees with it. Electronically signed by: Kelli Palmer M.D. Narrative 05/22/2024 5:16 PM REVIEW SCHEDULING COORDINATOR EXAMINATION: Computed tomography of the abdomen and [...] sult * POCT glucose (05/22/2024 12:58 PM REVIEW SCHEDULING COORDINATOR) Glucose, POC 177 70 - 199 mg/dL Blood 05/22/2024 12:5 8 PM REVIEW SCHEDULING COORDINATOR 05/22/2024 12:58 PM REVIEW SCHEDULING COORDINATOR Leo Henry MD LAB POCT ORDERABLES - NILESH CE Final Result [facility] [place] [address] * (ABNORMAL) POCT glucose (05/22/2024 9:29 AM REVIEW SCHEDULING COORDINATOR) Glucose, POC 291(H) 70 - 199 mg/dL Blood 05/22/2024 9:29 AM REVIEW SCHEDULING COORDINATOR 05/22/2024 9:29 AM REVIEW SCHEDULING COORDINATOR us Leo Henry MD LAB POCT ORDERABLES - NILESH CE Final Result Performing Organization Address City/[facility]/ZIP Co de Phone Number [facility] [place] [address] * POCT glucose (05/22/2024 6:54 AM REVIEW SCHEDULING COORDINATOR) Glucose, POC 142 70 - 199 mg/dL Blood 05/22/2024 6:54 AM REVIEW SCHEDULING COORDINATOR 05/22/2024 6:54 AM REVIEW SCHEDULING COORDINATOR us Jimmie Zavala MD LAB POCT ORDERABLES - DEVICE Fin al Result Performing Organization Address [facility] Co de Phone Number [facility] [place] [address] * CT Chest PE (CTA) W Contrast (05/22/2024 1:31 AM REVIEW SCHEDULING COORDINATOR) Anatomical Region Laterality Modality Body N/A Computed Tomogra phy 05/22/2024 2:38 AM REVIEW SCHEDULING COORDINATOR Impressions 05/22/2024 9:12 AM REVIEW SCHEDULING COORDINATOR No pulmonary embolism. Dictated by: Miguel Milligan MD The radiology attending physician has personally reviewed this study, and had reviewed and/or edited this written report and agrees with it. Electronically signed by: Jayson Rockwell M.D. Narrative 05/22/2024 9:12 AM REVIEW SCHEDULING COORDINATOR EXAMINATION: CT CHEST PE (CTA) W CONTRAST [...] Result * D-dimer, quantitative (05/22/2024 12:24 AM REVIEW SCHEDULING COORDINATOR) D-Dimer 414 <=499 ng/mL FEU Comment: Interpretive [...] on 2019. Blood 05/22/2024 12:2 4 AM REVIEW SCHEDULING COORDINATOR 05/22/2024 12:42 AM REVIEW SCHEDULING COORDINATOR Angeline Soler MD LAB BLOOD ORDERABLES F inal Result [facility] [place] [address] * Troponin I high-sensitivity 2-hour (05/21/2024 11:09 PM REVIEW SCHEDULING COORDINATOR) Trop I hs 5 <=17 ng/L Comment: Interpretive Data For further hscTnI resources including the diagnostic algorithm and an aid in interpretation, copy and paste this link: https://bjhlab.testcatalog.org/show/[email or web address] Current Interpretive Data last revised 2019. Trop I hs delta See Comment ng/L [facility] Comment:Inappropriate collec tion time to report a delta. Trop I hs pct delta See Comment % [facility] Comment:Inappropriate collec tion time to report a delta. Trop I hs interp See Comment [facility] Comment:Inappropriate collec tion time to report a delta. Blood 05/21/2024 11:0 9 PM REVIEW SCHEDULING COORDINATOR 05/21/2024 11:26 PM REVIEW SCHEDULING COORDINATOR us Cira Castro MD LAB BLOOD ORDERABL ES Final Result Performing Organization Address [facility] Co de Phone Number [facility] [place] [address] * (ABNORMAL) Urinalysis reflex to microscopic and culture Urine (05/21/2024 11:09 PM REVIEW SCHEDULING COORDINATOR) Color, ur Yellow Yellow Clarity, ur Clear Clear [facility] Specific gravity, ur 1.025 1.003 - 1.030 [facility] pH, urine 6.0 [facility] Comment: Interpretive Data U rine pH is affected by diet, medications, systemic acid-base disturbances, and renal tubular function. pH may affect urinary stone formation. For example, urine pH below 6.0 may help reduce the tendency for calcium phosphate stones and pH greater than 6.0 may reduce the tendency for uric acid stone formation. Source: [facility] Current Interpretive Data was last revised on 2017 Protein, ur ql 1+(A) Negative [facility] Glucose, ur ql Negative Negative [facility] Ketones, ur Negative Negative [facility] Bilirubin, ur Negative Negative [facility] [facility] Blood, ur Trace(A) Negative [facility] Urobilinogen, ur <2.0 <2.0 mg/dL [facility] Nitrite, ur Positive(A) Negative [facility] Leukocyte esterase, ur 1+(A) Negative [facility] UA reflex comment Reflex to microscopic UA will be performed. [facility] Urine 05/21/2024 11:0 9 PM REVIEW SCHEDULING COORDINATOR 05/21/2024 11:22 PM REVIEW SCHEDULING COORDINATOR us Angeline Soler MD LAB MICROBIOLOGY - GEN ERAL ORDERABLES Final Result Performing Organization Address City/State/[facility] Co de Phone Number [facility] [place] [address] * Respiratory pathogen panel Nasopharyngeal (05/21/2024 11:09 PM REVIEW SCHEDULING COORDINATOR) Pathologist [facility] [place] Influenza A RNA Not Detected Not Detected Influenza B RNA Not Detected Not Detected [facility] RSV RNA Not Detected Not Detected [facility] COVID-19 RNA Not Detected Not Detected [facility] Coronavirus 229E RNA Not Detected Not Detected [facility] Coronavirus HKU1 RNA Not Detected Not Detected [facility] Coronavirus NL63 RNA Not Detected Not Detected [facility] Coronavirus OC43 RNA Not Detected Not Detected [facility] Adenovirus DNA Not Detected Not Detected [facility] Metapneumovirus RNA Not Detected Not Detected [facility] Rhinovirus/Enterov irus RNA Not Detected Not Detected [facility] Parainfluenza 1 RNA Not Detected Not Detected [facility] Parainfluenza 2 RNA Not Detected Not Detected [facility] Parainfluenza 3 RNA Not Detected Not Detected [facility] Parainfluenza 4 RNA Not Detected Not Detected [facility] B. pertussis DNA Not Detected Not Detected [facility] B. parapertussis DNA Not Detected Not Detected [facility] C. pneumoniae DNA Not Detected Not Detected [facility] M. pneumoniae DNA Not Detected Not Detected [facility] Nasopharyngeal 05/21/2024 11 :09 PM REVIEW SCHEDULING COORDINATOR 05/22/2024 4:48 AM REVIEW SCHEDULING COORDINATOR Narrative [facility] - 05/22/2024 5:55 AM REVIEW SCHEDULING COORDINATOR Is the Patient experiencing symptoms consistent with COVID?->No Surveillance testing for transplant patient?->No Interpretive Data The VerbalizeIt FilmArray Respiratory Panel (RP2.1) assay is a [...] assay has FDA clearance for testing of COPY MESSENGER swabs. The performance of additional specimen types has been assessed by the performing laboratory. The performance characteristics of this assay have been determined by [facility] Molecular Infectious Disease Laboratory. Current interpretive data was last revised on 22. Angeline Soler MD LAB MICROBIOLOGY - GEN ERAL ORDERABLES Final Result [facility] One [facility] Department [place] [address] * (ABNORMAL) Urinalysis, microscopic only (05/21/2024 11:09 PM REVIEW SCHEDULING COORDINATOR) WBC, ur 11-20(A) 0 - 5 /HPF RBC, ur 3-5(A) 0 - 2 /HPF [facility] Epithelial cells, squamous, ur 1-5 0 - 5 /HPF [facility] Bacteria, ur 3+(A) [facility] Yeast, ur Trace(A) [facility] Mucous, ur Present(A) [facility] Culture Reflex Comment Reflex to urine culture will be performed. [facility] Urine 05/21/2024 11:0 9 PM REVIEW SCHEDULING COORDINATOR 05/21/2024 11:21 PM REVIEW SCHEDULING COORDINATOR us Angeline Soler MD LAB URINE ORDERABLES F inal Result [facility] [place] [address] * (ABNORMAL) Urine culture Urine (05/21/2024 11:09 PM REVIEW SCHEDULING COORDINATOR) Report Amended Report - Complete: Greater than or equal to 100,000 colonies/mL of Escherichia coli Plus growth of clinically insignificant bacterial yesenia. (.) Organism ESCHERICHIA COLI [facility] Organism PLUS GROWTH OF CLINICALLY INSIGNIFICANT YESENIA. [facility] Urine 05/21/2024 11:0 9 PM REVIEW SCHEDULING COORDINATOR 05/22/2024 2:40 AM REVIEW SCHEDULING COORDINATOR Narrative [facility] - 05/25/2024 10:36 AM REVIEW SCHEDULING COORDINATOR Urine culture reflexed based upon urinalysis results. Testing performed by [facility] Microbiology Laboratory ([phone]) Organism Antibiotic Method Susceptibility Escherichia coli Ampicillin [...] Edited Result - Final Performing Organization Address City/[facility]/ZIP Co de Phone Number [facility] [place] [address] * POCT glucose (05/21/2024 8:55 PM REVIEW SCHEDULING COORDINATOR) Pathologist [facility] [place] Glucose, POC 139 70 - 199 mg/dL Blood 05/21/2024 8:55 PM REVIEW SCHEDULING COORDINATOR 05/21/2024 8:55 PM REVIEW SCHEDULING COORDINATOR Notinfile Unknown LAB POCT ORDERABLES - DEVICE F inal Result Performing Organization Address [facility] de Phone Number [facility] [place] [address] * Troponin I high-sensitivity 4-hour (05/21/2024 7:26 PM REVIEW SCHEDULING COORDINATOR) [facility] Trop I hs 4 <=17 ng/L Comment: Interpretive Data For further hscTnI resources including the diagnostic algorithm and an aid in interpretation, copy and paste this link: https://bjhlab.testcatalog.org/show/hsTrop-1 Current Interpretive Data last revised 2019. Trop I hs delta -1 ng/L [facility] Trop I hs interp Insignificant [facility] Blood 05/21/2024 7:26 PM REVIEW SCHEDULING COORDINATOR 05/21/2024 7:37 PM REVIEW SCHEDULING COORDINATOR Cira Castro MD LAB BLOOD ORDERABL ES Final Result Performing Organization Address [facility]/[place] [address] * Troponin I high-sensitivity series (baseline, 2hr, 4hr, 6hr) (05/21/2024 4:20 PM REVIEW SCHEDULING COORDINATOR) Trop I hs 5 <=17 ng/L Comment: Interpretive Data For further hscTnI resources including the diagnostic algorithm and an aid in interpretation, copy and paste this link: https://bjhlab.testcatalog.org/show/hsTrop-1 Current Interpretive Data last revised 2019. Blood 05/21/2024 4:20 PM REVIEW SCHEDULING COORDINATOR 05/21/2024 4:50 PM REVIEW SCHEDULING COORDINATOR us Jimmie Zavala MD LAB BLOOD ORDERABLES Final Resul t Performing Organization Address [facility] Co de Phone Number [facility] [place] [address] * eGFR (05/21/2024 4:20 PM REVIEW SCHEDULING COORDINATOR) eGFR >90 >=60 mL/min/1. 73 m2 Comment: [...] last reviewed 2021. Blood 05/21/2024 4:20 PM REVIEW SCHEDULING COORDINATOR 05/21/2024 4:50 PM REVIEW SCHEDULING COORDINATOR us Jimmie Zavala MD LAB BLOOD ORDERABLES Final Resul t [facility] [place] [address] * (ABNORMAL) Differential, auto (05/21/2024 4:20 PM REVIEW SCHEDULING COORDINATOR) Neutrophil abs 8.0(H) 1.5 - 6.5 K/cumm Imm gran abs 0.0 0.0 - 0.1 K/cumm [facility] Lymphocyte abs 2.4 0.8 - 3.3 K/cumm [facility] Monocyte abs 0.8 0.2 - 0.8 K/cumm [facility] Eosinophil abs 0.2 0.0 - 0.5 K/cumm [facility] Basophil abs 0.0 0.0 - 0.1 K/cumm [facility] Neutrophil pct 69.4 % [facility] Comment: Interpretive Data Percent cell count reference ranges are not reported, since discordance with absolute values may lead to misinterpretation of CBC data. Current Interpretive Data was last revised on 2017. Imm gran pct 0.4 % [facility] Comment: Interpretive Data Percent cell count reference ranges are not reported, since discordance with absolute values may lead to misinterpretation of CBC data. Current Interpretive Data was last revised on 2017. Lymphocyte pct 21.4 % [facility] Comment: Interpretive Data Percent cell count reference ranges are not reported, since discordance with absolute values may lead to misinterpretation of CBC data. Current Interpretive Data was last revised on 2017. Monocyte pct 6.7 % [facility] Comment: Interpretive Data Percent cell count reference ranges are not reported, since discordance with absolute values may lead to misinterpretation of CBC data. Current Interpretive Data was last revised on 2017. Eosinophil pct 1.8 % [facility] Comment: Interpretive Data Percent cell count reference ranges are not reported, since discordance with absolute values may lead to misinterpretation of CBC data. Current Interpretive Data was last revised on 2017. Basophil pct 0.3 % [facility] Comment: Interpretive Data Percent cell count reference ranges are not reported, since discordance with absolute values may lead to misinterpretation of CBC data. Current Interpretive Data was last revised on 2017. Blood 05/21/2024 4:20 PM REVIEW SCHEDULING COORDINATOR 05/21/2024 4:50 PM REVIEW SCHEDULING COORDINATOR Jimmie Zavala MD LAB BLOOD ORDERABLES Final Resul t Performing Organization Address City/[facility]/ZIP Co de Phone Number [facility] Department [place] [address] * (ABNORMAL) CBC with auto differential (05/21/2024 4:20 PM REVIEW SCHEDULING COORDINATOR) Pathologist [facility] [place] WBC 11.4(H) 3.8 - 9.9 K/cumm Hgb 14.0 11.9 - 15.5 g/dL [facility] Hct 43.6 35.6 - 45.5 % [facility] Plt 286 150 - 400 K/cumm [facility] MPV 9.9 9.1 - 12.3 fL [facility] RBC 4.83 3.90 - 5.20 M/cumm [facility] MCV 90.3 81.3 - 96.4 fL [facility] MCH 29.0 27.1 - 33.3 pg [facility] MCHC 32.1(L) 32.3 - 35.7 g/dL [facility] RDW CV 13.6 11.1 - 14.9 % [facility] RDW SD 45.6 35.7 - 48.1 fL [facility] NRBC abs 0.00 0.00 - 0.01 K/cumm [facility] Blood Venous blood specimen / Unknown 05/21/2024 4:20 PM REVIEW SCHEDULING COORDINATOR 05/21/2024 4:50 PM REVIEW SCHEDULING COORDINATOR us Jimmie Zavala MD LAB BLOOD ORDERABLES Final Resul t Performing Organization Address City/[facility]/ZIP Co de Phone Number [facility] [place] [address] * (ABNORMAL) Hemoglobin A1c (05/21/2024 4:20 PM REVIEW SCHEDULING COORDINATOR) Hgb A1C 8.7(H) 4.0 - 5.6 % Estimated Average Glucose 203 mg/dL [facility] Comment: The ADA recommends reporting an estimated Average Glucose (eAG) with all Hemoglobin A1c results using the equation derived from a study of 507 normal and diabetic adults. Minority populations were underrepresented and children were not included. (Diabetes Care 2020; 43(S1): S66-S76). The eAG is not equivalent to a fasting glucose. Blood 05/21/2024 4:20 PM REVIEW SCHEDULING COORDINATOR 05/21/2024 4:55 PM REVIEW SCHEDULING COORDINATOR Leo Henry MD LAB BLOOD ORDERABLES Final Result [facility] [place] [address] * (ABNORMAL) Lipid panel (05/21/2024 4:20 PM REVIEW SCHEDULING COORDINATOR) Cholesterol 205(H) 30 - 199 mg/dL Comment: [...] Triglycerides 92 <=149 mg/dL [facility] Comment: Interpretive Data Ages < or [...] revised on 2017. HDL 55 >=40 mg/dL [facility] Comment: Interpretive Data Ages < or [...] on 2017. LDL, calculated 134(H) <=129 mg/dL [facility] Comment: Interpretive Data Ages < or [...] revised on 2023. Non-HDL Cholesterol 150 mg/dL [facility] Comment: Interpretive Data Ages < or [...] last revised on 2017. Chol/HDL ratio 4 [facility] Blood 05/21/2024 4:20 PM REVIEW SCHEDULING COORDINATOR 05/21/2024 4:50 PM REVIEW SCHEDULING COORDINATOR Narrative [facility] [place] [place] 05/22/2024 4:17 PM REVIEW SCHEDULING COORDINATOR Reflex Leo Henry MD LAB BLOOD ORDERABLES Final Result [facility] [place] [address] * Comprehensive metabolic panel (05/21/2024 4:20 PM REVIEW SCHEDULING COORDINATOR) Sodium 140 135 - 145 mmol/L Potassium, pl 4.3 3.3 - 4.9 mmol/L [facility] Chloride 100 97 - 110 mmol/L [facility] CO2 29 22 - 32 mmol/L [facility] Anion gap 11 2 - 15 mmol/L [facility] BUN 14 6 - 25 mg/dL [facility] Creatinine 0.63 0.60 - 1.10 mg/dL [facility] Glucose 119 70 - 199 mg/dL [facility] Comment: Interpretive Data Fasting [...] 2022. Calcium 10.0 8.5 - 10.3 mg/dL [facility] Bilirubin, total 0.7 0.1 - 1.2 mg/dL [facility] Protein, pl 8.5 6.5 - 8.5 g/dL [facility] Albumin 3.9 3.5 - 5.0 g/dL [facility] Alk phos 83 40 - 130 Units/L [facility] ALT 23 7 - 45 Units/L [facility] AST 22 10 - 45 Units/L [facility] Blood 05/21/2024 4:20 PM REVIEW SCHEDULING COORDINATOR 05/21/2024 4:50 PM REVIEW SCHEDULING COORDINATOR us Jimmie Zavala MD LAB BLOOD ORDERABLES Final Resul t [facility] [place] [address] * XR Chest Pa Lateral 2 Views (05/21/2024 2:23 PM REVIEW SCHEDULING COORDINATOR) Anatomical Region Laterality Modality Body, Chest N/A Computed Radiogr aphy 05/21/2024 2:28 PM REVIEW SCHEDULING COORDINATOR Impressions 05/21/2024 2:36 PM REVIEW SCHEDULING COORDINATOR The current study is compared with the [...] Jaime Neves M.D. Narrative 05/21/2024 2:36 PM REVIEW SCHEDULING COORDINATOR EXAMINATION: 2 view chest radiograph Procedure Note [...] Result * POCT glucose (05/21/2024 1:39 PM REVIEW SCHEDULING COORDINATOR) Glucose, POC 113 70 - 199 mg/dL Blood 05/21/2024 1:39 PM REVIEW SCHEDULING COORDINATOR 05/21/2024 1:39 PM REVIEW SCHEDULING COORDINATOR us Notinfile Unknown LAB POCT ORDERABLES - DEVICE F inal Result [facility] [place] [address] * ECG 12-LEAD (05/21/2024 1:36 PM REVIEW SCHEDULING COORDINATOR) Narrative [facility] - 05/21/2024 1:36 PM REVIEW SCHEDULING COORDINATOR Gil Mcgrath MD 05/21/2024 1:37 PM ECG [...] Zavala MD ECG ORDERABLES Final Result [facility] * US Axillary Breast Left (05/21/2024 12:13 PM REVIEW SCHEDULING COORDINATOR) Anatomical Region Laterality Modality Upper Extremities Left Ultrasound 05/21/2024 12:2 3 PM REVIEW SCHEDULING COORDINATOR Impressions 05/21/2024 12:23 PM REVIEW SCHEDULING COORDINATOR 1. Limited ultrasound due to extensive edema [...] Alicia Wilcox M.D. Narrative 05/21/2024 12:23 PM REVIEW SCHEDULING COORDINATOR EXAMINATION: LEFT AXILLARY ULTRASOUND HISTORY: Patient is [...] culture Urine, clean voided (05/14/2024 4:50 PM REVIEW SCHEDULING COORDINATOR) Color, ur Straw Yellow Clarity, ur Clear Clear [facility] Specific gravity, ur 1.025 1.003 - 1.030 [facility] pH, urine 5.5 [facility] Comment: Interpretive Data U rine pH is affected by diet, medications, systemic acid-base disturbances, and renal tubular function. pH may affect urinary stone formation. For example, urine pH below 6.0 may help reduce the tendency for calcium phosphate stones and pH greater than 6.0 may reduce the tendency for uric acid stone formation. Source: [employer] Current Interpretive Data was last revised on 2017 Protein, ur ql Trace Negative [facility] Glucose, ur ql Negative Negative [facility] Ketones, ur Negative Negative [facility] Bilirubin, ur Negative Negative [facility] Blood, ur Trace(A) Negative [facility] Urobilinogen, ur <2.0 <2.0 mg/dL [facility] Nitrite, ur Negative Negative [facility] Leukocyte esterase, ur Negative Negative [facility] UA reflex comment Reflex to microscopic UA will be performed. [facility] Urine, clean voided 05/14/2024 4:50 PM REVIEW SCHEDULING COORDINATOR 05/14/2024 7:18 PM REVIEW SCHEDULING COORDINATOR Khris Arthur MD LAB MICROBIOLOGY - G ENERAL ORDERABLES Final Result Performing Organization Address [facility] de Phone Number [facility] [place] [address] * (ABNORMAL) Urinalysis, microscopic only (05/14/2024 4:50 PM REVIEW SCHEDULING COORDINATOR) WBC, ur 0-5 0 - 5 /HPF RBC, ur 0-2 0 - 2 /HPF [facility] Epithelial cells, squamous, ur 1-5 0 - 5 /HPF [facility] Bacteria, ur Trace(A) [facility] Mucous, ur Present(A) [facility] Culture Reflex Comment Reflex conditions for urine culture (WBC >10) not met. [facility] Urine, clean voided 05/14/2024 4:50 PM REVIEW SCHEDULING COORDINATOR 05/14/2024 7:18 PM REVIEW SCHEDULING COORDINATOR Khris Arthur MD LAB URINE ORDERABLES Final Result Performing Organization Address [facility] Co de Phone Number [facility] [place] [address] * XR Ribs Left 2 Views (05/14/2024 4:44 PM REVIEW SCHEDULING COORDINATOR) Anatomical Region Laterality Modality Rib, Chest Left Digital Radiogra phy 05/14/2024 4:54 PM REVIEW SCHEDULING COORDINATOR Impressions 05/14/2024 4:54 PM REVIEW SCHEDULING COORDINATOR 1. No displaced left rib fracture. Electronically signed by: Jamshid Penny 05/14/2024 4:54 PM REVIEW SCHEDULING COORDINATOR EXAMINATION: XR RIBS LEFT 2 VIEWS HISTORY: [...] Bone mineral density was performed on a [employer] Discovery Densitometer. Based on machine cross-calibration and [...] by the International Society of Clinical Densitometry. [id number] us Khris Arthur MD IMG DXA PROCEDURES [...] agrees with it. ACC# Date Time Exam [id number] Aug 19, 2016 14:27:00 [facility] [id number] Diag Mamm, inc CAD, unilat L Technologist(s): Carla Harris; ; [id number] Aug 19, 2016 15:39:00 [facility] [id number] Breast US unilateral, ltd L ACC# Date Time Exam [id number] Aug 19, 2016 14:27:00 C [id number] Diag Mamm, inc CAD, unilat L Technologist(s): Carla Harris; ; [id number] Aug 19, 2016 15:39:00 C [id number] Breast US unilateral, ltd L EXAMINATION: LEFT [...] SARABIA M.D. on Aug 19 2016 4:20P [id number] Procedure Note Miscellaneous, Not In File / Provider, MD Tyler - 09/17/2016 ANTHONY SARABIA M.D. JUDY RINCON M.D. FINAL REPORT The radiology attending physician has personally reviewed this study, and has reviewed and/or edited this written report and agrees with it. ACC# Date Time Exam [id number] Aug 19, 2016 14:27:00 [facility] [id number] Diag Mamm, inc CAD, unilat L Technologist(s): Carla Harris; ; [id number] Aug 19, 2016 15:39:00 [facility] [id number] Breast US unilateral, ltd L ACC# Date Time Exam [id number] Aug 19, 2016 14:27:00 C [id number] Diag Mamm, inc CAD, unilat L Technologist(s): Carla Harris; ; [id number] Aug 19, 2016 15:39:00 [facility] [id number] Breast US unilateral, ltd L EXAMINATION: LEFT [...] SARABIA M.D. on Aug 19 2016 4:20P [id number] us Not In File Miscellaneous IMG MAMMO PROCEDURES F inal Result from Last 3 Months or Most Recently Relevant to Health Maintenance Insurance [facility] MEDICARE ADVANTAGE [facility] Address: [address] [address] [place] [address] [facility] MEDICARE ADVANTAGE [facility] Address: [address] [place] [id number] [facility] MED[facility] Address: [address] [place] [phone] Advance Directives For more information, please contact: [phone] Documents on File Type Date Recorded Patient Trimmer Operator Three Knife Expl anation ADVANCE DIRECTIVE 12/23/2021 2:49 PM Power of Coil Winder Hand-Medical ADVANCE DIRECTIVE 12/23/2021 2:49 PM Living Will [...] First Alternate Health Care Agent Care Teams Space Control Supervisor Relationship Specialty Start Date End Date Justen Gale MD [address] [address] PCP - General 10/09/17 Liu Jerez MD Consulting Physician Gastroenterology 07/28/17 [place] [address] [facility] [address] [place] [address] Consulting Physician Pulmonary Disease 08/03/17 Khris Arthur MD [address] [facility] [address] [place] [address] Medical Oncologist/Strap Cutting Machine Operator Medical Oncology 10/23/17 [place] [address] [facility] [address] [place] [address] Surgeon Orthopedic Surgery 10/23/17 [place] [address] [facility] [address] [place] [address] Consulting Physician Pain Management 10/23/17 [place] [address] [facility] [address] [place] [address] Referring Physician General Surgery 01/26/18 [place] [address] [facility] [address] [place] [address] Consulting Physician Neurology 01/26/18
--- OUTSIDE RECORDS SUMMARY | 2024-08-07 16:35 | XMS_ITS | Encounter Summary ---
Author Organization [facility] Address [address] [place] [address] Phone Care Team Providers Care Hunter Guide Name Role Phone Liu Jerez MD Unavailable Albert Corbin MD Unavailable Justen Gale MD Primary Care Provider Khris Arthur MD Unavailable [phone] Ko Melendez MD Unavailable John Paul Moyer MD Unavailable [phone] Annel Rod MD Unavailable Anali MARSHALL MD, Carlos M. Unavailable [phone] Encounter Details Date Type Department Care Team [...] on file Legal Sex Female 12:24 AM DRUMS TEACHER Gender Identity Not on file Sexual [...] COVID: Recovered 02/10/2022 02/10/2022 06/10/2022 3:05 AM DRUMS TEACHER Exposure, COVID-19 Comment:Added automatically based on COVID19 lab answers indicating exposure risk 02/11/2022 02/11/2022 02/15/2022 9:06 AM C DT COVID: Suspected 05/14/2022 05/14/2022 05/14/2022 10:41 AM DRUMS TEACHER COVID: Suspected 06/07/2022 06/07/2022 06/07/2022 12:28 PM DRUMS TEACHER COVID: Suspected 06/21/2022 06/21/2022 06/21/2022 2:12 AM DRUMS TEACHER COVID: Suspected 10/05/2022 10/05/2022 10/05/2022 7:40 PM CDT COVID: Suspected 01/04/2024 01/04/2024 01/04/2024 10:30 PM CDT COVID: Suspected 02/14/2024 02/14/2024 02/15/2024 12:36 AM CDT COVID: Suspected 07/01/2024 07/01/2024 07/01/2024 2:53 PM CDT COVID: Suspected 07/01/2024 07/01/2024 07/02/2024 3:05 AM CDT documented as of this encounter Care Teams Hunter Guide Relationship Specialty Start Date End Date Justen Gale MD 2 [facility] [address] [place] [address] PCP - General 10/09/17 Liu Jerez MD Consulting Physician Gastroenterology 07/28/17 [place] [address] [facility] [address] [place] [address] Consulting Physician Pulmonary Disease 08/03/17 [place] [address] [place] [address] [address] [place] [address] Medical Oncologist/Natural Resources Faculty Member Medical Oncology 10/23/17 [place] [address] [address] Surgeon Orthopedic Surgery 10/23/17 [place] [address] [facility] [address] [place] [address] Consulting Physician Pain Management 10/23/17 [place] [address] [address] Referring Physician General Surgery 01/26/18 [place] [address] [facility] [address] [place] [address] Consulting Physician Neurology 01/26/18 documented as of this encounter
--- OUTSIDE RECORDS SUMMARY | 2024-08-07 16:35 | XMS_ITS | Encounter Summary ---
Author Organization [facility] Address [address] [place] [address] Phone Care Team Providers Care Numberer And Wirer Name Role Phone Justen Gale MD Primary Care Provider [phone] David Roberts APRN, GENERAL INTERNAL MEDICINE DOCTOR Unavailable [phone] Annel Rod MD Unavailable Encounter Details Date Type Department Care Team (Late st Contact Info) Description 06/05/2020 Lab Requisition [facility] [address] [place] [address] Pili Elkins APRN, GENERAL INTERNAL MEDICINE DOCTOR #[address] [address] Frequency of micturition Social History [...] COVID-19? No / Unsure 2020 11:37 AM SENIOR TELECOMMUNICATIONS TECHNICIAN documented as of this encounter Plan of Treatment Upcoming Encounters Date Type Department Care Team (Late st Contact Info) Description 09/18/2024 2:45 PM CDT [facility] Visit [facility] - [place] #2 [place] [address] Annel Rod MD #[address] [address] documented as of this encounter Procedures Procedure Name Priority Date/Time Associated Diagnosis Comments URINALYSIS REFLEX IF INDICATED BY ABNORMAL RESULTS Routine 06/05/2020 4:45 PM SENIOR TELECOMMUNICATIONS TECHNICIAN Frequency of micturition documented in this encounter Results * (ABNORMAL) URINALYSIS REFLEX IF INDICATED BY ABNORMAL RESULTS (06/05/2020 4:45 PM SENIOR TELECOMMUNICATIONS TECHNICIAN) SPECIFIC GRAVITY 1.020 1.003 - 1.030 06/05/2020 5:19 PM SENIOR TELECOMMUNICATIONS TECHNICIAN [facility] URINE PH 5.0 5.0 - 9.0 06/05/2020 5:19 PM SENIOR TELECOMMUNICATIONS TECHNICIAN [facility] WBC ESTERASE Negative Negative 06/05/2020 5:19 PM SENIOR TELECOMMUNICATIONS TECHNICIAN [facility] NITRITE Negative Negative 06/05/2020 5:19 PM SENIOR TELECOMMUNICATIONS TECHNICIAN [facility] PROTEIN, RANDOM URINE Negative Negative 06/05/2020 5:19 PM SENIOR TELECOMMUNICATIONS TECHNICIAN [facility] URINE GLUCOSE, QUAL Negative Negative 06/05/2020 5:19 PM SENIOR TELECOMMUNICATIONS TECHNICIAN [facility] URINE KETONES Negative Negative 06/05/2020 5:19 PM SENIOR TELECOMMUNICATIONS TECHNICIAN [facility] UROBILINOGEN Normal Normal mg/dL 06/05/2020 5:19 PM SENIOR TELECOMMUNICATIONS TECHNICIAN [facility] URINE BILIRUBIN Negative Negative 5:19 PM SENIOR TELECOMMUNICATIONS TECHNICIAN [facility] URINE BLOOD 25 /uL(A) Negative leandro/ul 06/05/2020 5:19 PM SENIOR TELECOMMUNICATIONS TECHNICIAN [facility] URINALYSIS COLOR Yellow 06/05/19 5:19 PM SENIOR TELECOMMUNICATIONS TECHNICIAN [facility] URINALYSIS CLARITY Clear 06/05/2020 5:19 PM SENIOR TELECOMMUNICATIONS TECHNICIAN [facility] WBC (Urine) 0-5 Negative, 0-5 /hpf 06/05/2020 5:19 PM SENIOR TELECOMMUNICATIONS TECHNICIAN [facility] URINE RBC'S 3-5(A) Negative, 0-2 /hpf 06/05/2020 5:19 PM SENIOR TELECOMMUNICATIONS TECHNICIAN [facility] EPITHELIAL CELLS Small amount /lpf 2020 5:19 PM SENIOR TELECOMMUNICATIONS TECHNICIAN [facility] BACTERIA, URINE Few(A) Negative /hpf 06/05/2020 5:19 PM SENIOR TELECOMMUNICATIONS TECHNICIAN [facility] Urine URINE SPECIMEN / Unknown Non-Phlebotomy Collection / Unknown 06/05/2020 4:45 PM SENIOR TELECOMMUNICATIONS TECHNICIAN 06/05/2020 5:00 PM SENIOR TELECOMMUNICATIONS TECHNICIAN us Pili Elkins APRN, CNP URINE ORDERABLES Fin al Result [facility] #[address] [facility] [place] [address] documented in this encounter Visit Diagnoses Diagnosis Frequency of micturition Urinary frequency documented in this encounter Additional Health Concerns Infection Onset Date Last Indicated Resolved Time COVID - 19 08/01/2024 08/01/2024 08/01/2024 3:20 PM CDT Assessment Noted Time PHQ-9 Depression Total Score: 0 09/08/19 1:00 PM CDT documented as of this encounter Care Teams Numberer And Wirer Relationship Specialty Start Date End Date Justen Gale MD #[address] [address] PCP - General Family Medicine 10/17/17 David Roberts APRN, GENERAL INTERNAL MEDICINE DOCTOR #2 [facility] [place] [address] Nurse Practitioner Advanced Practice Nurse 01/31/22 Annel Rod MD #[address] [phone] Consulting Physician Endocrinology 07/01/22 documented as of this encounter
--- OUTSIDE RECORDS SUMMARY | 2024-08-07 16:35 | XMS_ITS | Encounter Summary ---
Author Organization [facility] Address [address] [place] [address] Phone Care Team Providers Care Aeronautical Products Sales Engineer Name Role Phone Justen Gale MD Primary Care Provider [phone] David Roberts APRN, CABLE MAKER Unavailable [phone] Annel Rod MD Unavailable Reason for Visit * Reason Comments Medication Refill Encounter Details Date Type Department Care Team (Late st Contact Info) Description 04/13/2023 Refill [facility] - [place] #2 [place] [address] Annel Rod MD #[address] [address] Medication Refill Social History [...] Jennifer Wang, RN - 04/14/2023 10:00 AM CARDIAC CATHETERIZATION TECHNOLOGIST Requested Prescriptions Pending Prescriptions Disp Refills ??? Continuous Blood Gluc Sensor (FreeStyle Eileen 2 Sensor) Misc [Pharmacy Med Name: FREESTYLE EILEEN 2 SENSOR] 6 Each 1 Sig: APPLY 1 SENSOR AND WEAR FOR 14 DAYS TO CHECK BLOOD SUGAR Next appt: 05/30/2023 IAC CATHETERIZATION TECHNOLOGIST documented in this encounter Plan of Treatment Upcoming Encounters Date Type Department Care Team (Late st Contact Info) Description 09/18/2024 2:45 PM CDT Office Visit [facility] #2 [place] [address] Annel Rod MD #[address] [address] documented as of this encounter Visit Diagnoses Not on filedocumented in this encounter Additional Health Concerns Infection Onset Date Last Indicated Resolved Time COVID - 19 08/01/2024 08/01/2024 08/01/2024 3:20 PM CDT Assessment Noted Time PHQ-9 Depression Total Score: 8 01/18/20 23 2:24 PM CDT documented as of this encounter Care Teams Aeronautical Products Sales Engineer Relationship Specialty Start Date End Date Justen Gale MD #[address] [address] PCP - General Family Medicine 10/17/17 David Roberts, TRUCK DRIVER INSTRUCTOR, CABLE MAKER #2 [place] [address] Nurse Practitioner Advanced Practice Nurse 01/31/22 Annel Rod MD #[address] [address] Consulting Physician Endocrinology 07/01/22 documented as of this encounter
--- OUTSIDE RECORDS SUMMARY | 2024-08-07 16:35 | XMS_ITS | Encounter Summary ---
Author Organization [facility] Address [address] [place] [address] Phone Care Team Providers Care Credit Front Office Developer Name Role Phone Justen Gale MD Primary Care Provider [phone] David Roberts APRN, OYSTER SHUCKER Unavailable [phone] Annel Rod MD Unavailable Reason for Visit * Reason Comments Medication Refill Encounter Details Date Type Department Care Team (Late st Contact Info) Description 09/30/2023 Refill [facility] - [place] #2 [place] [address] Annel Rod MD #[address] [address] Medication Refill Social History Tobacco [...] Description 09/18/2024 2:45 PM CDT Office Visit [facility] #2 [place] [address] Annel Rod MD #[address] [address] documented as of this encounter Visit Diagnoses Not on filedocumented in this encounter Additional Health Concerns Infection Onset Date Last Indicated Resolved Time COVID - 19 08/01/2024 08/01/2024 08/01/2024 3:20 PM CDT Assessment Noted Time PHQ-9 Depression Total Score: 8 01/18/20 23 2:24 PM CDT documented as of this encounter Care Teams Credit Front Office Developer Relationship Specialty Start Date End Date Justen Gale MD #[address] [address] PCP - General Family Medicine 10/17/17 David Roberts APRN, OYSTER SHUCKER #2 [place] [address] Nurse Practitioner Advanced Practice Nurse 01/31/22 Annel Rod MD #[address] [address] Consulting Physician Endocrinology 07/01/22 documented as of this encounter
--- OUTSIDE RECORDS SUMMARY | 2024-08-07 16:35 | XMS_ITS | Encounter Summary ---
Author Organization [facility] Address [address] [place] [address] Phone Care Team Providers Care Vp Care Management Name Role Phone Justen Gale MD Primary Care Provider [phone] David Roberts APRN, BEAD FLIPPER Unavailable [phone] Annel Rod MD Unavailable Reason for Visit * Reason Comments Medication Refill Encounter Details Date Type Department Care Team (Late st Contact Info) Description 07/14/2022 Refill [facility] #2 [place] [address] Justen Gale MD #[address] [address] Medication Refill Social History Tobacco Use Types [...] Visit [facility] - End[facility]ology - [place] #2 [place] [address] Annel Rod MD #2 [facility] [address] [place] [address] documented as of this encounter Visit Diagnoses Not on filedocumented in this encounter Additional Health Concerns Infection Onset Date Last Indicated Resolved Time COVID - 19 08/01/2024 08/01/2024 08/01/2024 3:20 PM CDT Assessment Noted Time PHQ-9 Depression Total Score: 0 07/21/19 21 3:00 PM CDT documented as of this encounter Care Teams Vp Care Management Relationship Specialty Start Date End Date Justen Gale MD #2 [facility] [address] [place] [address] PCP - General Family Medicine 10/17/17 David Roberts APRN, BEAD FLIPPER #2 [place] [address] Nurse Practitioner Advanced Practice Nurse 01/31/22 Annel Rod MD #[address] [address] Consulting Physician Endocrinology 07/01/22 documented as of this encounter
--- OUTSIDE RECORDS SUMMARY | 2024-08-07 16:35 | XMS_ITS | Encounter Summary ---
Author Organization [facility] Address [address] [place] [address] Phone Care Team Providers Care Diesel Bus Mechanic Name Role Phone Justen Gale MD Primary Care Provider [phone] David Roberts APRN, FINISH GRINDER Unavailable [phone] Annel Rod MD Unavailable Reason for Visit * Reason Comments Medication Refill Encounter Details Date Type Department Care Team (Late st Contact Info) Description 07/06/2023 Refill [facility] #2 [place] [phone] Justen Gale MD #[address] [address] Medication Refill Social History Tobacco Use Types [...] AM CDT Medication(s) [facility] and [facility] Chronic Medication Refill Standing Order [...] Dept 06/27/23 Office Visit Justen Gale MD [facility] 01/17/23 Office Visit Catrina Quiñonez MD [facility] Showing recent visits within past 270 days [...] Visit [facility] - [place] #[address] [place] [address] Annel Rod MD #[address] [place] [address] documented as of this encounter Visit Diagnoses Not on filedocumented in this encounter Additional Health Concerns Infection Onset Date Last Indicated Resolved Time COVID - 19 08/01/2024 08/01/2024 08/01/2024 3:20 PM CDT Assessment Noted Time PHQ-9 Depression Total Score: 8 01/18/20 2:24 PM CDT documented as of this encounter Care Teams Diesel Bus Mechanic Relationship Specialty Start Date End Date Justen Gale MD #[address] [facility] [address] [place] [address] PCP - General Family Medicine 10/17/17 David Roberts APRN, FINISH GRINDER #2 [place] [address] Nurse Practitioner Advanced Practice Nurse 01/31/22 Annel Rod MD #[address] [facility] [address] [place] [address] Consulting Physician Endocrinology 07/01/22 documented as of this encounter
--- OUTSIDE RECORDS SUMMARY | 2024-08-07 16:35 | XMS_ITS | Clinical Summary ---
Author Organization [facility] Address [address] [facility] [place] [address] Care Team Providers Care Maintenance Manager Name Role Phone Justen Gale MD Primary Care Provider [phone] Source Comments [facility],non-research medical center Affiliates and Associated Physician Practices is amultiple site organization consisting of ambulatory clinics and hospital sitesin [place], [place], [place] and [place]. This disclosure is being madepursuant to the Care Everywhere program and may not contain all information available regarding this patient. Last updated 18.[facility] [employer] Allergies Active Allergy Reactions Criticality Noted Date [...] Gluc Sensor (FreeStyle Eileen 2 Sensor Systm) [facility] APPLY 1 SENSOR AND WEAR [...] heating? Somewhat hard 05/16/2023 [facility] [place] [facility] Occupat ional Health - Occupational Stress [...] a senior living (including now)? 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 Gender Identity Not on file Sexual [...] this topic Medical Devices Implanted Type Area Assurance Services Manager Health Care Device Identifier Shelf Expiration Date Model / Serial / Lot Lead Nrstm 60cm Penta 3mm Pdl 16 Chnl Implanted:Qt y: 1 on 09/16/2021 by Maxi Gregg MD at [facility] Right: Spine Thoracic [employer] [id number] / / Description:JJ Slnt Dura Duraseal Pg Trilysine Amine 5 Implanted:Qt y: 1 on 09/16/2021 by Maxi Gregg MD at [facility] Right: Spine Thoracic [employer] David [id number] / / Description:JJ Proclaim Plus 5 Implanted:Qt y: 1 on 02/16/2023 by Maxi Gregg MD at [facility] Left: Back Cardenas Spine [id number] 11/07/2024 [id number] / [id number] / Explanted Type Area Assurance Services Manager Health Care Device Identifier Shelf Expiration Date Model / Serial / Lot Gntr Nrstm 1.95inx2.19in Proclaim Elt Implanted:Qty: 1 on 09/16/2021 by Maxi Gregg MD at [facility] Explanted:Qty: 1 on 10/30/2021 by Maxi Gregg MD at [facility] Right: Spine Thoracic [employer] [...] - 26 mg/dL 07/30/2023 2:31 AM CDT [facility] Creatinine 0.67 0.56 - 0.96 mg/dL 07/30/2023 2:31 AM CDT [facility] Sodium 136 136 - 145 mmol/L 07/30/2023 2:31 AM CDT [facility] Potassium 4.4 3.5 - 4.5 mmol/L 07/30/2023 2:31 AM [facility] Chloride 101 98 - 107 mmol/L 07/30/2023 2:31 AM [facility] CO2 27 22 - 29 mmol/L 07/30/2023 2:31 AM [facility] Glucose 238(H) 70 - 115 mg/dL 07/30/2023 2:31 AM [facility] Albumin 2.9(L) 3.4 - 5.0 g/dL 07/30/2023 2:31 AM [facility] Calcium 9.4 8.4 - 10.2 mg/dL 07/30/2023 2:31 AM [facility] Phosphorus 3.0 2.9 - 5.1 mg/dL 07/30/2023 2:31 AM [facility] Anion Gap 8 6 - 16 07/30/2023 2:31 AM [facility] BUN/Creatinine Ratio 30(H) 7 - 23 07/30/2023 2:31 AM [facility] Osmolality Calculated 292 275 - 295 mOsm/kg 07/30/2023 2:31 AM [facility] eGFR by CKD-EPI >90 >=90 mL/min/1.7 3 m2 07/30/2023 2:31 AM [facility] Blood BLOOD SPECIMEN / Unknown Lab Venipuncture / Unknown 07/30/2023 1:28 AM CDT 07/30/2023 2:04 AM T Brian Bravo MD LAB - CHEMISTRY ORDERABLES F inal Result [facility] [address] [place] [address], [facility] [phone] * HEPATITIS C AB SCREEN RFLX NAAT QUANT (02/21/2023 6:30 PM CDT) Hepatitis C Antibody Non-react hugh Non-reac tive 02/21/2023 7:32 PM [facility] Comment:Hepatitis C Antibody screen indicates no [...] nal Result Performing Organization Address City/[facility]/ZIP Co de Phone Number [facility] [address] [place] [address], [place] [phone] * (ABNORMAL) HEMOGLOBIN A1C (12/25/2022 3:56 AM CDT) Hemoglobin A1c 8.6(H) <=5.6 % 12/25/2022 2:47 PM CDT [facility] Estimated Average Glucose 200 mg/dL 12/25/2022 2:47 PM CDT [facility] Comment: HbA1c Interpretation: Normal : < 5.7% Pre-diabetes: 5.7-6.4% Diabetes: Equal to or greater than 6.5% Test results diagnostic of diabetes should be repeated for confirmation. Treatment target values recommended by ADA and other clinical organizations should be used to evaluate metabolic control in patients. Reference: [place] Diabetes [employer], Standards of Care in Diabetes [...] LAB - CHEMISTRY ORDERA BLES Final Result [facility] [address] [place] [phone], [place] [phone] from Last 3 Months or Most Recently [...] 3:37 AM 03/23/2023 7:14 PM Care Teams Maintenance Manager Relationship Specialty Start Date End Date Justen Gale MD PCP - General 07/05/21
--- OUTSIDE RECORDS SUMMARY | 2024-08-07 16:35 | XMS_ITS | Encounter Summary ---
Author Organization [facility] Address [address] [place] [address] Phone Care Team Providers Care Bagman/Woman Name Role Phone Justen Gale MD Primary Care Provider [phone] David Roberts APRN, CNP Unavailable [phone] Annel Rod MD Unavailable Reason for Referral * Radiology Services (Urgent) - Authorized Specialty Diagnoses / Procedures Referred By Contkristina t Referred To Contact Radiology Diagnoses Dyspnea on exertion Procedures ADULT TRANS THORACIC ECHO 2D COMPLETE Angelito Alegria APRN, NETTA #[address] [address] Phone: tel: fax: Referral ID Status Reason Start Date Expiration Date V isits Requested Visits Authorized [id number] Authorized 08/07/2024 1 1 Reason for Visit * Reason Comments ED Follow-up Encounter Details Date Type Department Care Team (Late st Contact Info) Description 08/07/2024 8:30 AM CDT Office Visit [facility] #2 [place] [id number] Angelito Alegria APRN, MATTRESS PACKER #[address] [place] [id number] Diffuse arthralgia (Primary Dx); Dyspnea on exertion; [...] = 0.6 oz pur e alcohol) [facility] Utilities Answer Date Recorded In the [...] declined 08/06/2024 How often do you attend chur ch or lutheran services? More than 4 times per year [...] Recorded Total Score - Questions 1-9 0 04/1 [facility] - [...] any time in the past 12 m [facility], were you homeless or living in a long-term (including now)? No 08/06/2024 Education Answer Date [...] Mass Index 51.77 08/07/2024 8:22 AM CDT documented in this encounter Progress Notes * Stephenie Davis, EMPLOYEE RELATIONS ADMINISTRATOR - 08/07/2024 8:30 AM CDT Karly Marques, 69 y.o., female is here for ED Follow-up Medication Refills: Patient reports/denies need for medication refills. Orders Pended: no Requested Prescriptions No prescriptions requested or ordered in this encounter Home Medications Medication Sig Start Date End Date Taking? Authorizing Provider albuterol 108 (90 Base) MCG/ACT Aerosol Solution take 2 Puffs by inhalation. 04/19/21 ProviderTyler MD B-D ULTRAFINE III SHORT PEN 31G X 8 MM Misc USE 6 TIMES DAILY DIRECTED 06/16/22 Justen Gale MD Blood Glucose Monitoring Suppl Device Diagnosis: Diabetes Type 2 Blood testing frequency: 4 times aday 11/21/17 Justen Gale MD Calcium Citrate-Vitamin D (CALCIUM + D PO) Take by mouth. Provider, MD Tyler Continuous Blood Gluc Sensor (FreeStyle Eileen 2 Sensor) Misc APPLY 1 SENSOR AND WEAR FOR 14 DAYS [facility] BLOOD SUGAR 08/07/23 Annel Rod MD Continuous Glucose Sensor (FreeStyle Eilene 2 Sensor) Misc 1 Each by Does not apply route every 14 days. 08/02/24 Annel Rod MD Continuous Glucose Sensor (FreeStyle Eileen 2 Sensor) Misc 1 Each by Does not apply route every 14 days. Change sensor every 14 days. E11.42, insulin dependent 04/25/24 Annel Rod MD diphenhydrAMINE (BENADRYL) 25 MG Capsule Take 25 mg by mouth every 6 hours as needed. Tyler Smith MD exemestane (AROMASIN) 25 MG Tablet Take 25 mg by mouth daily. Tyler Smith MD gabapentin (NEURONTIN) 300 MG Capsule Take 300 mg by mouth. 06/20/23 Tyler Smith MD Glucose Blood (ONE TOUCH ULTRA TEST) Strip Test four times daily. 02/11/20 Annel Rod MD HumaLOG KwikPen 100 UNIT/ML Solution Pen-injector INJECT 28 UNITS UNDER SKIN BEFORE EACH MEAL.; ISFOF 1:15 OF IF>150MG/DL; MAX DAILY DOSE OF 100 UNITS 08/05/24 Annel Rod MD HumaLOG KwikPen 100 UNIT/ML Solution Pen-injector ADMINSTER 22 UNITS UNDER THE SKIN BEFORE EACH MEAL, ISF OF 1:15 OF IF> 150MG/DL MAX DAILY DOSE OF 100 UNITS Patient taking differently: 28 Units by Subcutaneous route 3 times daily (before meals). ADMINSTER 28 UNITS UNDER THE SKIN BEFORE EACH MEAL, ISF OF 1:15 OF IF> 150MG/DL MAX DAILY DOSE OF 100 UNITS03/07/23 Annel Rod MD HYDROcodone-acetaminophen (NORCO) 10-325 MG Tablet Take 1 Tablet by mouth. 12/28/23 Tyler Smith MD HYDROcodone-acetaminophen (NORCO) 7.5-325 MG Tablet 02/17/19 Tyler Smith MD insulin glargine (Lantus SoloStar) 100 UNIT/ML Solution Pen-injector 40 Units by Subcutaneous routeevery morning. 08/05/24 Annel Rod MD methenamine (HIPREX) 1 GM Tablet Take 1 g by mouth 2 times daily. Tyler Smith MD [facility]. Devices [facility] Supply and instructions: 09/09/20 Justen Gale MD Multiple Vitamins-Minerals (WOMENS MULTI PO) Take by mouth. Tyler Smith MD naloxone HCl (Narcan) 4 MG/0.1ML Liquid 05/13/21 Tyler Smith MD ondansetron (Zofran) 4 MG Tablet Take 1 Tablet by mouth every 8 hours as needed for Nausea - 1st line. 04/25/24 Justen Gale MD OneTouch Delica Lancets 33G [facility] 1 Lancet by Does not apply route 4 times daily. 03/09/21 Annel Rod MD oxybutynin (DITROPAN XL) 15 MG TABLET SR 24 HR Take 10 mg by mouth daily. 06/28/22 ProviderTyler MD predniSONE (DELTASONE) 10 MG Tablet Take 1 Tablet by mouth daily for 7 days. 08/02/24 08/09/24 Angelito Alegria APRN, MATTRESS PACKER rivaroxaban (XARELTO) 20 MG Tablet Take 20 mg by mouth daily. Provider, MD Tyler rOPINIROLE (REQUIP) 5 MG Tablet Take 1 Tablet by mouth nightly. 04/25/24 Justen Gale MD There are no discontinued [...] Date Due Diabetes: Eye Exam Never done Zoster Immunization (1 of 2) Never done Pneumococcal Immunization (50+ years) (1 of 2 - PCV) Never done Respiratory Syncytial Virus (RSV) Immunization (Adult) (1 - Risk 60-74 years 1- dose series) Never done Diabetes: Foot Exam 08/12/2020 SARS-COV-2 Immunization (2023- season) 2023 DEXA Bone Density 08/02/2024 Orders Pended: no The following BPA's have been addressed with the patient today: SDOH * Stephenie Davis CMA - 08/07/2024 8:30 AM CDT Karly screened for Social Determinants of Health and patient declined to answer the questions. * Stephenie Davis CMA - 08/07/2024 8:30 AM CDT Finger stick was performed on right index finger without incident per order of Angelito Alegria APRN-NETTA. Results of 186, provider informed results entered into computer. POCT GLUCOSE * Angelito Alegria APRN, CNP - 08/07/2024 8:30 AM CDT Subjective: Subjective CC: Diffuse arthralgia and CLAY Karly Marques is a 69-year-old female who presents for hospital follow-up for diffuse arthralgia and dyspnea on exertion. We saw her the other day if she was having some like diffuse arthralgias in the bilateral upper extremities and lower extremities. She was having some unilateral headache aswell. When she was going over to get her lab work done after the visit to workup for polymyalgia rheumatica and giant cell arteritis she became short of breath and checked herself into the ER. ESR and CRP were elevated. BNP was negative. There was possibly some infiltrates on the lung x-ray. Patient did start low-dose prednisone that I prescribed her. On the second day she noticed a lot of improve ment in her symptoms and she has not had her dose today, but still feeling better than she did. Shehas not had any further headaches. Still having some dyspnea on exertion. She has no other acute concerns. The history is provided by the patient and medical records. No assistant speech language pathologist was used. ED Follow-up Associated symptoms include arthralgias and myalgias. Pertinent negatives include no abdominal pain, chest pain, chills, congestion, coughing, fatigue, fever, headaches, nausea, numbness, rash, sore throat or vomiting. Review of Systems Constitutional: Negative for chills, fatigue and fever. HENT: Negative for congestion, ear discharge, ear pain, postnasal drip, sinus pressure, sinus pain,sore throat and trouble swallowing. Eyes: Negative for photophobia, pain and discharge. Respiratory: Positive for shortness of breath. Negative for cough, chest tightness and wheezing. Cardiovascular: Negative for chest pain and palpitations. Gastrointestinal: Negative for abdominal pain, constipation, diarrhea, nausea and vomiting. Genitourinary: Negative for dysuria, flank pain, frequency, hematuria and urgency. Musculoskeletal: Positive for arthralgias and myalgias. Negative for back pain. Skin: Negative for rash and wound. Neurological: Negative for dizziness, seizures, syncope, numbness and headaches. Psychiatric/Behavioral: Negative for suicidal ideas. Allergies Allergies Allergen Reactions Ceftriaxone Anaphylaxis Cephalosporins Anaphylaxis Dermatological Products, Misc. Hives and Itching SURGICAL TAPE Lorazepam Other (see Comments) and Unknown Aggrevates restless leg syndrome Aggrevates restless leg syndrome Latex Rash Levofloxacin Rash and Other (see Comments) Macrobid [Nitrofurantoin] Itching Meropenem Rash Amlodipine Itching Azithromycin Hives Ciprofloxacin Rash Doxycycline Unknown Lisinopril Swelling Lower extremity edema Macrobid [Nitrofurantoin Macrocrystal] Itching Medical Adhesive Remover Rash Norvasc [Amlodipine Besylate] Swelling Leg swelling Oxycodone Unknown Piperacillin Rash Reglan [Metoclopramide Hcl] Unknown Reslizumab Unknown Ketorolac Itching Pregabalin Other (see Comments) Sulfamethoxazole-Trimethoprim Itching Trazodone Other (see Comments) Shaky, restlessness, itching, throat swelling Medications Current Outpatient Medications: albuterol 108 (90 Base) [...] Sensor (FreeStyle Eileen 2 Sensor) [facility], APPLY 1 SENSOR AND WEAR FOR 14 DAYS TO CHECK BLOOD SUGAR, Disp: 6 Each, Rfl: 1 Continuous Glucose Sensor (FreeStyle Eileen 2 Sensor) Misc, 1 Each by Does not apply route every 14 days., Disp: 6 Each, Rfl: 1 Continuous Glucose Sensor (FreeStyle Eileen 2 Sensor) [facility], 1 Each by Does not apply route every 14 days. Change sensor every 14 days. E11.42, insulin dependent, Disp: 6 Each, Rfl: 1 diphenhydrAMINE (BENADRYL) [...] OF 100 UNITS, Disp: 90 mL, Rfl: 0 HumaLOG KwikPen 100 UNIT/ML Solution Pen-injector, ADMINSTER 22 UNITS UNDER THE SKIN BEFORE EACH MEAL, ISF OF 1:15 OF IF> 150MG/DL MAX DAILY DOSE OF 100 UNITS (Patient taking differently: 28 Unitsby Subcutaneous route 3 times daily (before meals). ADMINSTER 28 UNITS UNDER THE SKIN BEFORE EACH MEAL, ISF OF 1:15 OF IF> 150MG/DL MAX DAILY DOSE OF 100 UNITS), Disp: 30 mL, Rfl: 1 HYDROcodone-acetaminophen (NORCO) 10-325 MG Tablet, Take 1 Tablet by mouth., Disp: , Rfl: insulin glargine (Lantus SoloStar) 100 UNIT/ML Solution Pen-injector, 40 Units by Subcutaneous route every morning., Disp: 30 mL, Rfl: 0 Misc. Devices Mis, Supply and instructions:, Disp: 1 Each, Rfl: 0 Multiple Vitamins-Minerals (WOMENS MULTI PO), Take by mouth., Disp: , Rfl: naloxone HCl (Narcan) 4 MG/0.1ML Liquid, , Disp: , Rfl: ondansetron (Zofran) 4 [...] mg by mouth daily., Disp: , Rfl: predniSONE (DELTASONE) 10 MG Tablet, Take 1 Tablet by mouth daily for 7 days., Disp: 7 Tablet, Rfl:0 rivaroxaban (XARELTO) 20 MG Tablet, Take 20 mg by mouth daily., Disp: , Rfl: rOPINIROLE (REQUIP) 5 MG Tablet, Take 1 Tablet by mouth nightly., Disp: 90 Tablet, Rfl: 2 Past Medical History Past Medical History Positives Diagnosis Date Breast cancer (HCC) Diabetes (HCC) DVT (deep venous thrombosis) (HCC) High blood pressure History of pulmonary embolus (PE) Hyperthyroidism Neuropathy Osteoarthritis Restless leg syndrome Sciatica Sleep apnea Spinal stenosis Past Surgical History Past Surgical History: Procedure Laterality Date BACK SURGERY 02/16/2023 [facility]; Spinal Stmulator BREAST SURGERY CHOLECYSTECTOMY JOINT REPLACEMENT LAP,INGUINAL HERNIA REPR,INITIAL MASTECTOMY MASTECTOMY BILATERAL Bilateral 2014 Family History Family History Problem Relation Age of Onset Stroke Mother Cancer Father Social History Social History Tobacco Use Smoking status: Never Smokeless tobacco: Never Vaping Use Vaping status: Never Used Substance Use Topics Alcohol use: No Drug use: No Objective: Objective Physical Exam Vitals and nursing note reviewed. [...] Thought content normal. Judgment: Judgment normal. Vitals: 08/07/24 0822 BP: 142/86 Pulse: 96 Resp: 16 Temp: 97.3 ??F (36.3 ??C) TempSrc: Temporal SpO2: 96% Weight: 274 lb (124.3 kg) Height: 5' 1 (1.549 m) Assessment and Plan Assessment & Plan See Diagnoses, Orders, Follow-up, and Instructions 1. Diffuse arthralgia (Primary) - ERYTHROCYTE SEDIMENTATION RATE (ESR); Future - C-REACTIVE PROTEIN (CRP) QUANT; Future 2. Dyspnea on exertion - ADULT TRANS THORACIC ECHO 2D COMPLETE; Future 3. Type 2 diabetes mellitus with diabetic polyneuropathy, with long-term current use of insulin (HCC) - POCT GLUCOSE Likely polymyalgia rheumatica. Will repeat her inflammatory markers today and if they have improvedor normalized then that would lend further support to the diagnosis. Continue low-dose prednisone. Get 2D echo. Will need referral to rheumatology. Time spent in open communication and establishing rapport with the patient was essential for effectively conveying assessment and plan, optimizing health outcomes, and fostering a trusting long-term provider-patient relationship. I discussed all new medications and potential side effects or risks associated with them. Patient is to contact our office with any concerns. Patient instructions and educational materials were given to the patient. Patient (or patient financial foundations representative) demonstrates verbal understanding of instructions given. [...] referring physician. Documentation for this visit on 08/07/24 was completed using a template. I have seen and examined the patient. Everything documented was personally performed at this visit with the necessary additions, deletions and changes made as appropriate. Note: Portions of this chart may have been completed with voice recognition software and may contain slight errors unrecognizable by the users. This would in no way affect the patient's care and is meant to improve length and quality of medical decision making and history taking. documented in this encounter Plan of Treatment Upcoming Encounters Date Type Department Care Team (Late st Contact Info) Description 09/18/2024 2:45 PM CDT Office Visit [facility] - Endocrinology - [place] [address] [place] [address] Annel Rod MD #[address] [address] Scheduled Orders Name Type Priority Associated Diagnoses Orde r Schedule ADULT TRANS THORACIC ECHO 2D COMPLETE Imaging [place] Dyspnea on exertion Expected: 08/07/2024, Expires: 02/06/2025 documented as of this encounter Procedures Procedure Name Priority Date/Time Associated Diagnosis Comments POCT GLUCOSE Routine 08/07/2024 8:31 AM CDT Type 2 diabetes mellitus with diabetic polyneuropathy, with long-term current use of insulin (HCC) documented in this encounter Results * (ABNORMAL) C-REACTIVE PROTEIN (CRP) QUANT (08/07/2024 8:59 AM CDT) C-REACTIVE PROTEIN 1.21(H) <0.50 mg/dL 08/07/2024 12:54 PM CDT [facility] Blood Venipuncture / Unknown 08/07/2024 8:59 AM CDT 08/07/2024 8:59 AM CDT us Angelito Alegria APRN, MATTRESS PACKER CHEMISTRY ORDERA BLES Final Result [facility] [address] [place] [address] * (ABNORMAL) ERYTHROCYTE SEDIMENTATION RATE (ESR) (08/07/2024 8:59 AM CDT) ESR (SED RATE, ERYTHROCYTE SEDIMENTATION RATE) 52(H) <30 mm/h 08/07/2024 12:34 PM CDT [facility] Comment: Patients presenting with increased level of fibrinogen, gamma globulins, or abnormally shaped RBCs could affect the results for the erythrocyte sedimentation rate (ESR). Results should be clinically correlated. Blood Venipuncture / Unknown 08/07/2024 8:59 AM CDT 08/07/2024 8:59 AM CDT Angelito Alegria APRN, CNP HEMATOLOGY ORDER CHAPARRO Final Result [facility] [address] [facility] [place] [address] * (ABNORMAL) POCT GLUCOSE (08/07/2024 8:31 AM CDT) GLUCOSE 186(A) 70 - 99 mg/dL 08/07/2024 8:31 AM CDT Angelito Alegria APRN, CNP POINT OF CARE TE STING (MANUAL) Final Result documented in this encounter Visit Diagnoses Diagnosis Diffuse arthralgia- Primary Dyspnea on exertion Other dyspnea and respiratory abnormality Type 2 diabetes mellitus with diabetic polyneuropathy, with long-term current use of insulin (HCC) documented in this encounter Additional Health Concerns Assessment Noted Time PHQ-9 Depression Total Score: 0 08/02/19 25 1:09 PM CDT documented as of this encounter Care Teams Bagman/Woman Relationship Specialty Start Date End Date Justen Gale MD #[address] [address] PCP - General Family Medicine 10/17/17 David Roberts APRN, CNP #2 [place] [address] Nurse Practitioner Advanced Practice Nurse 01/31/22 Annel Rod MD #[address] [address] Consulting Physician Endocrinology 07/01/22 documented as of this encounter
--- OUTSIDE RECORDS SUMMARY | 2024-08-07 16:35 | XMS_ITS | Encounter Summary ---
Author Organization [facility] Address [address] [place] [address] Phone Care Team Providers Care Lot Associate Name Role Phone Justen Gale MD Primary Care Provider David Roberts APRN, BUSINESS SOLUTION ANALYST Unavailable [phone] Annel Rod MD Unavailable Reason for Visit * Reason Comments Medication Refill Encounter Details Date Type Department Care Team (Late st Contact Info) Description 02/07/2020 Refill [facility] [address] [place] [address] Justen Gale MD [address] [address] Medication Refill Social History Tobacco Use Types [...] Endocrinology [facility] #[address] [place] [address] Annel Rod MD #[address] [address] documented as of this encounter Visit Diagnoses Not on filedocumented in this encounter Additional Health Concerns Infection Onset Date Last Indicated Resolved Time COVID - 19 08/01/2024 08/01/2024 08/01/2024 3:20 PM CDT Assessment Noted Time PHQ-9 Depression Total Score: 0 09/08/19 19 1:00 PM CDT documented as of this encounter Care Teams Lot Associate Relationship Specialty Start Date End Date Justen Gale MD #2 [facility] [address] [place] [address] PCP - General Family Medicine 10/17/17 David Roberts, ASSOCIATE PROJECT MANAGER, BUSINESS SOLUTION ANALYST #2 [place] [address] Nurse Practitioner Advanced Practice Nurse 01/31/22 Annel Rod MD #[address] [address] Consulting Physician Endocrinology 07/01/22 documented as of this encounter
--- OUTSIDE RECORDS SUMMARY | 2024-08-07 16:35 | XMS_ITS | Encounter Summary ---
Author Organization [facility] Address [address] [place] [address] Phone Care Team Providers Care Skein Bander Name Role Phone Justen Gale MD Primary Care Provider [phone] David Roberts APRN, [employer] LIAISON OFFICER Unavailable [phone] Annel Rod MD Unavailable Reason for Visit * Reason Comments Medication Refill Encounter Details Date Type Department Care Team (Late st Contact Info) Description 03/02/2023 [facility]ill [facility] #2 [place] [id number] Justen Gale MD #[address] [address] Medication Refill Social History Tobacco Use Types [...] Tamika Villarreal RN - 03/02/2023 8:51 AM SFDC DEVELOPER Medication failed the protocol, provider to review [...] 01/17/23 Office Visit Catrina Quiñonez MD [facility] 09/16/22 Office Visit Pili Elkins APRN, CNP [facility] 07/05/22 Office Visit Pili Elkins APRN, NETTA [facility] 05/02/22 Office Visit Jutsen Gale MD [facility] 03/03/22 Office Visit Pili Elkins APRN, NETTA [facility] Showing recent visits within past 365 days and meeting all other requirements Future Appointments No visits were found meeting these conditions. Showing future appointments within next 90 days and meeting all other requirements DEVELOPER documented in this encounter Plan of Treatment Upcoming Encounters Date Type Department Care Team (Late st Contact Info) Description 09/18/2024 2:45 PM CDT [facility] - [place] #2 [place] [phone] Annel Rod MD #[address] [phone] documented as of this encounter Visit Diagnoses Not on filedocumented in this encounter Additional Health Concerns Infection Onset Date Last Indicated Resolved Time COVID - 19 08/01/2024 08/01/2024 08/01/2024 3:20 PM CDT Assessment Noted Time PHQ-9 Depression Total Score: 8 01/18/20 2:24 PM CDT documented as of this encounter Care Teams Skein Bander Relationship Specialty Start Date End Date Justen Gale MD #2 [facility] [address] [place] [address] PCP - General Family Medicine 10/17/17 David Roberts APRN, NETTA #2 [place] [address] Nurse Practitioner Advanced Practice Nurse 01/31/22 Annel Rod MD #2 [facility] [address] [place] [address] Consulting Physician Endocrinology 07/01/22 documented as of this encounter
--- OUTSIDE RECORDS SUMMARY | 2024-08-07 16:35 | XMS_ITS | Encounter Summary ---
Author Organization [facility] Address [address] [place] [address] Phone Care Team Providers Care Lottery Sales Clerk Name Role Phone Justen Gale MD Primary Care Provider David Roberts APRN, DIRECTOR PRINT Unavailable [phone] Annel Rod MD Unavailable Reason for Visit * Reason Comments Medication Refill Encounter Details Date Type Department Care Team (Late st Contact Info) Description 02/07/2023 Refill [facility] #2 [place] [address] Catrina Quiñonez MD #2 [place] [address] Medication Refill Social History Tobacco Use Types [...] 07/05/22 Office Visit Pili Elkins APRN, CNP [facility] 05/02/22 Office Visit Justen Gale MD [facility] 03/03/22 Office Visit Pili Elkins APRN, NETTA [facility] Showing recent visits within past 365 [...] Visit [facility] - Endocrinology - [place] [address] [place] [address] Annel Rod MD #2 [place] [facility] [address] [place] [address] documented as of this encounter Visit Diagnoses Not on filedocumented in this encounter Additional Health Concerns Infection Onset Date Last Indicated Resolved Time COVID - 19 08/01/2024 08/01/2024 08/01/2024 3:20 PM CDT Assessment Noted Time PHQ-9 Depression Total Score: 8 01/18/20 2:24 PM CDT documented as of this encounter Care Teams Lottery Sales Clerk Relationship Specialty Start Date End Date Justen Gale MD [facility]2 [facility] [address] [place] [address] PCP - General Family Medicine 10/17/17 David Roberts, TRAINING PERSONNEL SUPERVISOR, DIRECTOR PRINT [address] [place] [address] Nurse Practitioner Advanced Practice Nurse 01/31/22 Annel Rod MD [facility] [facility] [address] Consulting Physician Endocrinology 07/01/22 documented as of this encounter
--- OUTSIDE RECORDS SUMMARY | 2024-08-07 16:35 | XMS_ITS | Encounter Summary ---
Author Organization [facility] Address [address] [place] [address] Phone Care Team Providers Care Bell Valet Name Role Phone Justen Gale MD Primary Care Provider [phone] David Roberts APRN, DURALUMIN MECHANIC Unavailable [phone] Annel Rod MD Unavailable Reason for Referral * Consult, Test & Initiate Treatment (Less Than 2 Weeks) - Open Specialty Diagnoses / Procedures Referred By Elyssa benavides Referred To Contact Diagnoses Polymyalgia rheumatica (HCC) Angelito Alegria, ZAMZAM, DURALUMIN MECHANIC [address] [address] Phone: tel: fax: Referral ID Status Reason Start Date Expiration Date Visits Re quested Visits Authorized [id number] Open 08/07/2024 6 6 Scheduling Instructions Karly is being referred to Dr. Beckett or other specialist in patient's insurance network for Polymyalgia Rheumatica. See below for Karly's current medications, allergies [...] OF 100 UNITS (Patient taking differently: 28 Units by Subcutaneous route [...] daily for 7 days., Disp: 7 Tablet, Rfl: 0 rivaroxaban (XARELTO) 20 MG Tablet, Take 20 mg by mouth daily., Disp: , Rfl: rOPINIROLE (REQUIP) 5 MG Tablet, Take 1 Tablet by mouth nightly., Disp: 90 Tablet, Rfl: 2 No current [...] -- Itching -- Meropenem -- Rash -- Amlodipine -- Itching -- Azithromycin -- Hives -- Ciprofloxacin -- Rash -- Doxycycline -- Unknown -- Lisinopril -- Swelling -- Lower extremity edema -- Macrobid [Nitrofurantoin Macrocrystal] -- Itching -- Medical Adhesive Remover -- Rash -- Norvasc [Amlodipine Besylate] -- Swelling -- Leg swelling -- Oxycodone -- Unknown -- Piperacillin -- Rash -- Reglan [Metoclopramide Hcl] -- Unknown -- [...] adult (HCC) Nausea and vomiting Pulmonary embolism Radiculopathy, lumbosacral region Syncope Neck pain on right side Speech impairment Neuropathy Class 3 severe obesity due to excess calories with serious comorbidity and body mass index (BMI) of 50.0 to 59.9 in adult Thyroid nodule Polymyalgia rheumatica (HCC) Encounter Details Date Type Department Care Team (Late st Contact Info) Description 08/07/2024 Results Follow-Up [facility] - Family Medicine [facility] #[address] [place] [address] Angelito Alegria APRN, DURALUMIN MECHANIC #[address] [address] Polymyalgia rheumatica (HCC) (Primary Dx) Social History Tobacco Use Types Packs/Day Years Used Date Smoking Tobacco: Never Smokeless Tobacco: Never Alcohol Use Standard Drinks/Week Comments No 0 (1 standard drink = 0.6 oz pur e alcohol) [facility] Utilities Answer Date Recorded In the [...] often do you attend chur ch or confucianist services? More than 4 times per year [...] Total Score - Questions 1-9 0 07/23 [facility] of Occupat ional Health - Occupational Stress [...] living in a chcf (including now)? No 08/06/2024 Education Answer Date [...] encounter Miscellaneous Notes * Telephone Encounter - Sylvia Rebollar RN - 08/07/2024 4:18 PM CDT Attempted to call patient with results, no answer at this time. Left message to call back or check [employer] message. * Telephone Encounter - Angelito Alegria, RESEARCH ADMINISTRATOR, DURALUMIN MECHANIC - 08/07/2024 2:15 PM CDT Discussed with PCP. Think patient is being seen in ER. Her inflammatory markers decreased. Needs tocontinue steroids until seen by rheumatology. Referral entered. documented in this encounter Plan of Treatment Upcoming Encounters Date Type Department Care Team (Late st Contact Info) Description 09/18/2024 2:45 PM CDT Office Visit [facility] - Endocrinology - [place] #2 [place] [address] Annel Rod MD #[address] [address] Scheduled Referrals Name Type Priority Associated Diagnoses Order Schedule EXTERNAL RHEUMATOLOGY REFERRAL Outpatient Referral Less Than 2 weeks Polymyalgia rheumatica (HCC) Expected: 08/07/2024, Expires: 08/07/2025 documented as of this encounter Visit Diagnoses Diagnosis Polymyalgia rheumatica (HCC)- Primary Polymyalgia rheumatica documented in this encounter Additional Health Concerns Assessment Noted Time PHQ-9 Depression Total Score: 0 08/02/19 25 1:09 PM CDT documented as of this encounter Care Teams Bell Valet Relationship Specialty Start Date End Date Justen Gale MD #[address] [address] PCP - General Family Medicine 10/17/17 David Roberts APRN, NETTA #2 [place] [address] Nurse Practitioner Advanced Practice Nurse 01/31/22 Annel Rod MD #[address] [address] Consulting Physician Endocrinology 07/01/22 documented as of this encounter
--- OUTSIDE RECORDS SUMMARY | 2024-08-07 16:35 | XMS_ITS | Clinical Summary ---
Author Organization [facility] Address [address] [place] [address] Phone Care Team Providers Care Evp Managing Director Name Role Phone Justen Gale MD Primary Care Provider [phone] Allergies Active Allergy Reactions Criticality Noted Date [...] - 6.0 % 09/29/2017 10:28 AM CDT Patients Know Best [facility] EST. AVG GLUCOSE, A1C 186 mg/dL 09/29/2017 10:28 AM CDT [employer] [facility] Blood Venipuncture / Unknown 09/28/2017 8:41 PM CDT 09/28/2017 8:46 PM CDT Narrative [facility] - 09/29/2017 10:28 AM CDT HGB A1C INTERPRETATION NORMAL: <5.7% PRE-DIABETES: 5.7 - 6.4% DIABETES: 6.5% OR GREATER us Francisco Castaneda MD CHEMISTRY ORDERABLES Final Resul t [facility]# [id number] [address] [facility] [place] [address] * (ABNORMAL) LIPID PANEL (09/28/2017 8:41 PM CDT) CHOLESTEROL 174 <200 mg/dL 09/30/2017 2:45 AM CDT [facility] [employer] [facility] TRIGLYCERIDE 109 <150 mg/dL 09/30/2017 2:45 AM CDT [facility] [employer] [facility] HDL 45 40 - 59 mg/dL 09/30/2017 2:45 AM CDT [facility] [employer] [facility] LDL CALCULATED 107(H) <100 mg/dL 09/30/2017 2:45 AM CDT [facility] [employer] [facility] NON-HDL CHOLESTEROL 129 <130 mg/dL 09/30/2017 2:45 AM CDT [facility] [employer] [facility] Blood Venipuncture / Unknown 09/28/2017 8:41 PM CDT 09/28/2017 8:46 PM CDT Narrative [facility] - 09/30/2017 2:45 AM CDT TOTAL [...] Castaneda MD CHEMISTRY ORDERABLES Final Resul t [facility] [employer] [facility] [id number] [address] [facility] [place] [address] from Last 3 Months or Most Recently Relevant to Health Maintenance Insurance Advance Directives For more information, please contact: [phone] * Full Code (Latest Code Status on File) Date Activated Date Inactivated Comments 09/29/2017 7:45 AM 09/30/2017 9:14 PM * Full Code Date Activated Date Inactivated Comments 09/29/2017 1:25 AM 09/29/2017 7:45 AM Care Teams Evp Managing Director Relationship Specialty Start Date End Date Justen Gale MD [address] [facility] [address] [place] [address] PCP - General Cardiovascular Disease 09/14/17
--- OUTSIDE RECORDS SUMMARY | 2024-08-07 16:35 | XMS_ITS ---
Author Organization [facility] Address [address] [place] [address] Care Team Providers Care Sizer Machine Name Role Phone Justen Gale MD Primary Care Provider [phone] Active Problems Problem Noted Date Diagnosed Date [...] breakfast and lunch. 22 units with dinner. ULL (obstructive sleep apnea) 08/01/2017 Overview (10/04/2021): Last [...]
--- OUTSIDE RECORDS SUMMARY | 2024-08-07 16:35 | XMS_ITS | Encounter Summary ---
Author Organization [facility] Address [address] [place] [address] Phone Care Team Providers Care Packager Hand Name Role Phone Justen Gale MD Primary Care Provider [phone] David Roberts APRN, CLAIM INSPECTOR Unavailable [phone] Annel Rod MD Unavailable Reason for Visit * Reason Onset Date Comments Breathing Problem 08/07/2024 Muscle Pain 08/07/2024 Encounter Details Date Type Department Care Team (Late st Contact Info) Description 08/07/2024 Nurse Triage [facility] [address] [place] [address] Justen Gale MD #[address] [address] Breathing Problem; Muscle Pain Social History Tobacco Use Types Packs/Day Years Used Date Smoking Tobacco: Never Smokeless Tobacco: Never Alcohol Use Standard Drinks/Week Comments No 0 (1 standard drink = 0.6 oz pur e alcohol) [facility] Utilities Answer Date Recorded In the [...] often do you attend chur ch or scientology services? More than 4 times per year 08/06/2024 Do you belong to any clubs o r organizations such as episcopalian groups, unions, fraternal or athletic groups, or [...] Total Score - Questions 1-9 0 07/23 [facility] of Occupat ional Health - Occupational Stress [...] any time in the past 12 m [facility], were you homeless or living in a custodial (including now)? No 08/06/2024 Education Answer Date [...] Encounter - Angelito Alegria APRN, CNP - 08/07/2024 1:57 PM CDT Thanks for sending her to the ER * Telephone Encounter - Estrella Navarro RN - 08/07/2024 1:31 PM CDT SITUATION: Breathing Trouble / Muscle Pain BACKGROUND: Patient is contacting PCP office. She reports she just left the doctor's office. She has been having muscle aches for the past few weeks. Trouble breathing reported and patient states shewas started on steroids x3 days ago. ED Evaluation, 08/01/2024 and 08/03/2024. Last Office Visit: 08/07/2024 with Angelito Alegria (see notes). She reports it was discussed with her symptoms could be polymyositis. Blood work completed today to compare to blood work completed on 08/02/2024. Patient reports from the office visit today, an ultrasound of the heart was recommended due to breathing concerns noticed today. She reports she called for appointment while at the office, before leaving and they cannot get her in until 09/18/2024. She reports this was discussed with the patient coordinator front desk and provider was to be notified in order to assist with patient getting testing completed sooner. ASSESSMENT: Symptom Description / Location: Patient reports she is short of breath and her legs don't want to work upon getting home from the appointment today. At time of call, breathing difficulty is moderate but worse with movement/exertion. Patient reports with shortness of breath with exertion she has the inability to focus and and thinkclearly/confused. Urinary incontinence reported that is worsening. Slight confusion reported at this time, not being able to find the words she needs when trying to talk and needing to think harder to say what she wants to say. DENIES: Bluish (or carney) lips or face RECOMMENDATION: Call EMS 911 Now. Patient is agreeable, but reports urinary incontinence accident while walking into the home and would like her spouse to contact EMS 911 for her within the next few minutes after she gets cleaned up. Offered to contact EMS 911 for patient, but she declined and requests her spouse to call. Medications, allergies, and preferred pharmacy not verified due to emergentsituation. Encouraged caller to call back with questions, concerns, or new/worsening symptoms. Encouraged caller to call back if she is unable to contact EMS 911. Encouraged caller to bring cell phone and tree puller to contact EMS 911 if symptoms worsen during travel. Caller verbalized understanding. Encounter routed to provider high priority to review/update. - See care advice and disposition for Guideline. First positive answer recorded, all responses to prior questions were negative. If symptoms increase, change or if new symptoms develop, call your health care provider or call back. Recommendations were based on caller information and is not a diagnosis. Verified and reviewed all triage information with caller. Reason for Disposition Difficult to awaken or acting confused (e.g., disoriented, slurred speech) Protocols used: Breathing [id number]-VC * Telephone Encounter - Neha Tomlinson - 08/07/2024 1:30 PM CDT Symptoms: Altered Mental Status, Body Aches, Breathing Trouble Outcome: Warm transfer to an emergent RN NOW! Reason: Trouble walking The caller accepted this outcome. documented in this encounter Plan of Treatment Upcoming Encounters Date Type Department Care Team (Late st Contact Info) Description 09/18/2024 2:45 PM CDT Office Visit [facility] - Endocrinology [facility] #[address] [place] [address] Annel Rod MD #[address] [address] documented as of this encounter Visit Diagnoses Not on filedocumented in this encounter Additional Health Concerns Assessment Noted Time PHQ-9 Depression Total Score: 0 08/02/19 25 1:09 PM CDT documented as of this encounter Care Teams Packager Hand Relationship Specialty Start Date End Date Justen Gale MD #2 [facility] [address] [place] [address] PCP - General Family Medicine 10/17/17 David Roberts APRN, CLAIM INSPECTOR #2 [place] [address] Nurse Practitioner Advanced Practice Nurse 01/31/22 Annel Rod MD #[address] [address] Consulting Physician Endocrinology 07/01/22 documented as of this encounter
--- OUTSIDE RECORDS SUMMARY | 2024-08-07 16:35 | XMS_ITS | Encounter Summary ---
Author Organization [facility] Address [address] [place] [address] Phone Care Team Providers Care Protein Purification Scientist Name Role Phone Justen Gale MD Primary Care Provider David Roberts APRN, FASHION MARKETER Unavailable [phone] Annel Rod MD Unavailable Reason for Visit * Reason Comments Medication Refill Encounter Details Date Type Department Care Team (Late st Contact Info) Description 03/13/2021 Refill [facility] [address] [place] [address] Justen Gale MD #[address] [address] Medication Refill Social History Tobacco [...] COVID-19? No / Unsure 03/02/2021 5:05 PM SHIP SCRAPER documented as of this encounter Plan of Treatment Upcoming Encounters Date Type Department Care Team (Late st Contact Info) Description 09/18/2024 2:45 PM CDT [facility] - [facility] - [place] #2 [place] [address] Annel Rod MD #2 [facility] [address] [place] [address] documented as of this encounter Visit Diagnoses Not on filedocumented in this encounter Additional Health Concerns Infection Onset Date Last Indicated Resolved Time COVID - 19 08/01/2024 08/01/2024 08/01/2024 3:20 PM CDT Assessment Noted Time PHQ-9 Depression Total Score: 0 07/21/19 21 3:00 PM CDT documented as of this encounter Care Teams Protein Purification Scientist Relationship Specialty Start Date End Date Justen Gale MD #2 [facility] [address] [place] [address] PCP - General Family Medicine 10/17/17 David Roberts, HOUSEHOLD MANAGER, FASHION MARKETER #2 [place] [address] Nurse Practitioner Advanced Practice Nurse 01/31/22 Annel Rod MD #[address] [address] Consulting Physician Endocrinology 07/01/22 documented as of this encounter
--- OUTSIDE RECORDS SUMMARY | 2024-08-07 16:35 | XMS_ITS | Encounter Summary ---
Author Organization [facility] Address [address] [place] [address] Phone Care Team Providers Care Window Decorator Name Role Phone Justen Gale MD Primary Care Provider [phone] David Roberts APRN, PRINTING EQUIPMENT MECHANIC APPRENTICE Unavailable [phone] Annel Rod MD Unavailable Reason for Visit * Reason Comments Medication Refill Encounter Details Date Type Department Care Team (Late st Contact Info) Description 08/30/2022 Refill [facility] #2 [place] [address] Justen Gale MD #[address] [address] Medication Refill Social History Tobacco Use Types [...] Office Visit Pili Elkins APRN, NETTA [facility] [place] 05/02/22 Office Visit [facility] MD [facility] [place] 03/03/22 Office Visit Pili Elkins APRN, NETTA [facility] [place] 01/03/22 Office Visit Dannielle Berg PAC [facility] [place] 12/07/21 Office Visit Pili Elkins APRN, NETTA [facility] [place] 11/09/21 Office Visit Pili Elkins APRN, NETTA [facility] [place] 10/08/21 Office Visit Angelito Alegria APRN, NETTA [facility] [place] 08/30/21 [facility] recent visits within past 365 [...] Visit [facility] - [facility] - [place] [address] [place] [address] Annel Rod MD #2 [facility] [address] [place] [address] documented as of this encounter Visit Diagnoses Not on filedocumented in this encounter Additional Health Concerns Infection Onset Date Last Indicated Resolved Time COVID - 19 08/01/2024 08/01/2024 08/01/2024 3:20 PM CDT Assessment Noted Time PHQ-9 Depression Total Score: 0 07/21/19 3:00 PM CDT documented as of this encounter Care Teams Window Decorator Relationship Specialty Start Date End Date Justen Gale MD [address] [address] PCP - General Family Medicine 10/17/17 David Roberts, GENERAL PRACTITIONER, PRINTING EQUIPMENT MECHANIC APPRENTICE #[address] [facility] [place] [address] Nurse Practitioner Advanced Practice Nurse 01/31/22 Annel Rod MD [address] [address] Consulting Physician Endocrinology 07/01/22 documented as of this encounter
--- OUTSIDE RECORDS SUMMARY | 2024-08-07 16:35 | XMS_ITS | Encounter Summary ---
Author Organization [employer] Care Team Providers Care Manager Chinese Name Role Phone Justen Gale MD Primary Care Provider [phone] David Roberts APRN, CNP Unavailable [phone] Annel Rod MD Unavailable Encounter Details Date Type Department Care Team (Latest Contact Info) Description 08/06/2024 Travel Social History Tobacco Use Types Packs/Day Years Used Date Smoking Tobacco: Never Smokeless Tobacco: Never Alcohol Use Standard Drinks/Week Comments No 0 (1 standard drink = 0.6 oz pur e alcohol) [facility] Utilities Answer Date Recorded In the past 12 months has [employer] electric, gas, oil, or water company threatened [...] often do you attend chur ch or cheondoism services? More than 4 times per year [...] Total Score - Questions 1-9 0 07/23 [facility] of Occupat ional Health - Occupational [...] any time in the past 12 m [facility], were you homeless or living in a care home (including now)? No 08/06/2024 Education Answer [...] as of this encounter Functional Status * Audit-C Score Answer Date of Assessment Author 0 08/06/2024 9:43 AM CDT [employer] Background * Q1: How often do you have a drink containing alcohol? Answer Date of Assessment Author Never 08/06/2024 9:43 AM CDT [employer] Background * Q2: How many drinks containing alcohol do you have on a typical day when you are drinking? Answer Date of Assessment Author Patient does not drink 08/06/2024 9:43 AM CDT [employer], System Background * Q3: How often do you have six or more drinks on one occasion? Answer Date of Assessment Author Never 08/06/2024 9:43 AM CDT [employer] Background documented as of this encounter Plan of Treatment Upcoming Encounters Date Type Department Care Team (Late st Contact Info) Description 09/18/2024 2:45 PM CDT Office Visit [facility] - Endocrinology - [place] #[address] [place] [address] Annel Rod MD #[address] [place] [address] documented as of this encounter Visit Diagnoses Not on filedocumented in this encounter Additional Health Concerns Assessment Noted Time PHQ-9 Depression Total Score: 0 08/02/19 25 1:09 PM CDT documented as of this encounter Care Teams Manager Chinese Relationship Specialty Start Date End Date Justen Gale MD #2 [facility] [address] [place] [address] PCP - General Family Medicine 10/17/17 David Roberts APRN, THERAPEUTIC DIETITIAN #2 [place] [address] Nurse Practitioner Advanced Practice Nurse 01/31/22 Annel Rod MD #2 [facility] [address] [place] [address] Consulting Physician Endocrinology 07/01/22 documented as of this encounter
--- OUTSIDE RECORDS SUMMARY | 2024-08-07 16:35 | XMS_ITS | CONTINUITY OF CARE DOCUMENT ---
Author Name ayesha, ayesha Address Unknown Organization [facility] Address [address] [place] [address] Phone [phone] Care Team Providers Care Product Marketing Director Name Role Phone Yamilet DURÁN, Maico Unavailable [phone] ALANIS DURÁN, BRIDGETT Unavailable ALLISON DURÁN, CLARISSE Unavailable PROBLEMS Condition Status Date Provider Notes Shortness of breath active Ivory Rodriguez Palpitations active Radha Seals INSURANCE PROVIDERS Payer name Policy type / Coverage type [place] red green party ID UHC MEDICARE COMPLETE HMO Other [id number] [facility] Medicaid 2 [id number] HISTORY OF PROCEDURES Procedure Date Procedure Name Provider Procedure Notes S tatus Stress EKG Carmine Silverio MD complet ed Regadenoson, 4 units Sergey Saldana MD completed Cardiolite, 2 units Sergey Saldana MD completed SPECT Images Carmine Silverio MD compl eted Holter, 24 or 48 Maico Woodard MD co mpleted
--- OUTSIDE RECORDS SUMMARY | 2024-08-07 16:35 | XMS_ITS | Encounter Summary ---
Author Organization [facility] Address [address] [place] [address] Phone Care Team Providers Care Unit Secy Name Role Phone Justen Gale MD Primary Care Provider [phone] David Roberts APRN, TRADEMARK AFFIXER Unavailable [phone] Annel Rod MD Unavailable Reason for Visit * Reason Comments Medication Refill Encounter Details Date Type Department Care Team (Late st Contact Info) Description 10/24/2022 Refill [facility] #2 [place] [address] Pili Elkins APRN, TRADEMARK AFFIXER #[address] [address] Medication Refill Social History [...] Visit [facility] - Endocrinology - [place] #2 [place] [address] Annel Rod MD #[address] [address] documented as of this encounter Visit Diagnoses Diagnosis Essential hypertension Unspecified essential hypertension documented in this encounter Additional Health Concerns Infection Onset Date Last Indicated Resolved Time COVID - 19 08/01/2024 08/01/2024 08/01/2024 3:20 PM CDT Assessment Noted Time PHQ-9 Depression Total Score: 0 09/17/19 11:00 AM CDT documented as of this encounter Care Teams Unit Secy Relationship Specialty Start Date End Date Justen Gale MD #2 [facility] [address] [place] [address] PCP - General Family Medicine 10/17/17 David Roberts, OUTREACH LIAISON, TRADEMARK AFFIXER #2 [place] [address] Nurse Practitioner Advanced Practice Nurse 01/31/22 Annel Rod MD #[address] [address] Consulting Physician Endocrinology 07/01/22 documented as of this encounter
--- OUTSIDE RECORDS SUMMARY | 2024-08-07 16:35 | XMS_ITS | Encounter Summary ---
Author Organization [facility] Address [address] [place] [address] Phone Care Team Providers Care Head Refrigeration Engineer Name Role Phone Justen Gale MD Primary Care Provider [phone] David Roberts APRN, HEALTH AND WELLNESS DIRECTOR Unavailable [phone] Annel Rod MD Unavailable Encounter Details Date Type Department Care Team (Late st Contact Info) Description 08/07/2024 9:20 AM CDT Lab [facility] #[address] [facility] [address] [place] [id number] [facility] Lab/Ancillary Body aches; Diffuse arthralgia Discharge Disposition: Discharged to home or Selfcare Social History Tobacco Use Types Packs/Day Years Used Date Smoking Tobacco: Never Smokeless Tobacco: Never Alcohol Use Standard Drinks/Week Comments No 0 (1 standard drink = 0.6 oz pur e alcohol) [facility] Utilities Answer Date Recorded In the past 12 months has [employer], gas, oil, or water [employer] threatened to shut off services in your [...] you attend chur ch or hinduism services? More than 4 times per year [...] Total Score - Questions 1-9 0 07/23 [facility] - [...] any time in the past 12 m [facility], were you homeless or living in a longterm (including now)? No 08/06/2024 Education Answer Date [...] as of this encounter Progress Notes * Stephanie Farias MA - 08/07/2024 9:20 AM CDT Karly presents for lab draw per order of Dr. Gale on 08/07/24. Specimen collected from right hand without incident. [facility] documented in this encounter Plan of Treatment Upcoming Encounters Date Type Department Care Team (Late st Contact Info) Description 09/18/2024 2:45 PM CDT Office Visit [facility] - Endocrinology - [place] [address] [place] [address] Annel Rod MD #[address] [phone] documented as of this encounter Procedures Procedure Name Priority Date/Time Associated Diagnosis Comments ERYTHROCYTE SEDIMENTATION RATE (ESR) Routine 08/07/2024 8:59 AM CDT Diffuse arthralgia CREATINE KINASE (CK) TOTAL Routine 08/07/2024 8:59 AM CDT Body aches C-REACTIVE PROTEIN (CRP) QUANT Routine 08/07/2024 8:59 AM CDT Diffuse arthralgia documented in this encounter Results * (ABNORMAL) C-REACTIVE PROTEIN (CRP) QUANT (08/07/2024 8:59 AM CDT) C-REACTIVE PROTEIN 1.21(H) <0.50 mg/dL 08/07/2024 12:54 PM CDT [facility] Blood Venipuncture / Unknown 08/07/2024 8:59 AM CDT 08/07/2024 8:59 AM CDT Angelito Alegria APRN, CNP CHEMISTRY ORDERA BLES Final Result Performing Organization Address City/[facility]/ZIP Co de Phone Number [facility] #[address] [place] [address] * (ABNORMAL) ERYTHROCYTE SEDIMENTATION RATE (ESR) (08/07/2024 8:59 AM CDT) [facility] ESR (SED RATE, ERYTHROCYTE SEDIMENTATION RATE) 52(H) <30 mm/h 08/07/2024 12:34 PM CDT [facility] Comment: Patients presenting with increased level of fibrinogen, gamma globulins, or abnormally shaped RBCs could affect the results for the erythrocyte sedimentation rate (ESR). Results should be clinically correlated. Blood Venipuncture / Unknown 08/07/2024 8:59 AM CDT 08/07/2024 8:59 AM CDT Angelito Alegria APRN, CNP HEMATOLOGY ORDER CHAPARRO Final Result Performing Organization Address City/[facility]/ZIP Co de Phone Number [facility] [address] [place] [address] * CREATINE KINASE (CK) TOTAL (08/07/2024 8:59 AM CDT) CK (CPK) 151 29 - 168 U/L 08/07/2024 1:08 PM CDT [facility] Blood Venipuncture / Unknown 08/07/2024 8:59 AM CDT 08/07/2024 8:59 AM CDT us Angelito Alegria APRN, NETTA HEMATOLOGY ORDER CHAPARRO Final Result [facility] [address] [place] [address] documented in this encounter Visit Diagnoses Diagnosis Body aches Generalized pain Diffuse arthralgia documented in this encounter Additional Health Concerns Assessment Noted Time PHQ-9 Depression Total Score: 0 08/02/19 25 1:09 PM CDT documented as of this encounter Care Teams Head Refrigeration Engineer Relationship Specialty Start Date End Date Justen Gale MD #[address] [address] PCP - General Family Medicine 10/17/17 David Roberts APRN, NETTA #2 [place] [address] Nurse Practitioner Advanced Practice Nurse 01/31/22 Annel Rod MD #[address] [phone] Consulting Physician Endocrinology 07/01/22 documented as of this encounter
--- OUTSIDE RECORDS SUMMARY | 2024-08-07 16:35 | XMS_ITS | Encounter Summary ---
Author Organization [facility] Address [address] [place] [address] Phone Care Team Providers Care Metal Roaster Name Role Phone Justen Gale MD Primary Care Provider [phone] David Roberts APRN, BUFFER MACHINE Unavailable [phone] Annel Rod MD Unavailable Reason for Visit * Reason Onset Date Comments Advice Only 11/21/2023 Encounter Details Date Type Department Care Team (Late st Contact Info) Description 11/21/2023 Telephone [facility] [address] [place] [address] Justen Gale MD #[address] [address] Advice Only Social History Tobacco Use Types [...] 11/21/2023 3:17 PM CDT RFC: Alejandra from [facility] is calling to state that patient [...] Endocrinology [facility] #2 [place] [address] Annel Rod MD #[address] [address] documented as of this encounter Visit Diagnoses Not on filedocumented in this encounter Additional Health Concerns Infection Onset Date Last Indicated Resolved Time COVID - 19 08/01/2024 08/01/2024 08/01/2024 3:20 PM CDT Assessment Noted Time PHQ-9 Depression Total Score: 8 01/18/20 23 2:24 PM CDT documented as of this encounter Care Teams Metal Roaster Relationship Specialty Start Date End Date Justen Gale MD #[address] [address] PCP - General Family Medicine 10/17/17 David Roberts, SOCIAL MEDIA EXECUTIVE, BUFFER MACHINE #[address] [place] [address] Nurse Practitioner Advanced Practice Nurse 01/31/22 Annel Rod MD #[address] [phone] Consulting Physician Endocrinology 07/01/22 documented as of this encounter
--- OUTSIDE RECORDS SUMMARY | 2024-08-07 16:35 | XMS_ITS | Encounter Summary ---
Author Organization [facility] Address [address] [place] [address] Phone Care Team Providers Care Stone Banker Name Role Phone Lavonne Hathaway MD Primary Care Provider + [phone] Liu Jerez MD Unavailable [phone] Albert Corbin MD Unavailable [phone] Justen Gale MD Primary Care Provider [phone] Lavonne Hathaway MD Primary Care Provider + [phone] Justen Gale MD Primary Care Provider [phone] Khris Arthur MD Unavailable + [phone] Ko Melendez MD Unavailable [phone] John Paul Moyer MD Unavailable Annel Rod MD Unavailable Anali MARSHALL MD, Carlos M. Unavailable [phone] Encounter Details Date Type Department Care Team ([facility] Contact Info) Description 05/15/2017 Orders Only [facility] Scanning, Provider Social History Tobacco Use Types Packs/Day Years Used Date Smoking Tobacco: Former Alcohol Use Standard Drinks/Week Comments No 0 (1 standard drink = 0.6 oz pur e alcohol) Comments Unknown Sex and Gender Information Value Date Recorded Sex Assigned at Not on file Legal Sex Female 12:24 AM CYTOLOGY SUPERVISOR Gender Identity Not on file Sexual [...] COVID: Recovered 02/10/2022 02/10/2022 06/10/2022 3:05 AM CYTOLOGY SUPERVISOR Exposure, COVID-19 Comment:Added automatically based on COVID19 lab answers indicating exposure risk 02/11/2022 02/11/2022 02/15/2022 9:06 AM C DT COVID: Suspected 05/14/2022 05/14/2022 05/14/2022 10:41 AM CYTOLOGY SUPERVISOR COVID: Suspected 06/07/2022 06/07/2022 06/07/2022 12:28 PM CYTOLOGY SUPERVISOR COVID: Suspected 06/21/2022 06/21/2022 06/21/2022 2:12 AM CYTOLOGY SUPERVISOR COVID: Suspected 10/05/2022 10/05/2022 10/05/2022 7:40 PM CDT COVID: Suspected 01/04/2024 01/04/2024 01/04/2024 10:30 PM CDT COVID: Suspected 02/14/2024 02/14/2024 02/15/2024 12:36 AM CDT COVID: Suspected 07/01/2024 07/01/2024 07/01/2024 2:53 PM CDT COVID: Suspected 07/01/2024 07/01/2024 07/02/2024 3:05 AM CDT documented as of this encounter Care Teams Stone Banker Relationship Specialty Start Date End Date Lavonne Hathaway MD [address] [place] [address] [place] [address] PCP - General 08/16/16 08/17/17 Justen Gale MD [address] [address] [address] PCP - General 08/18/17 08/22/17 Lavonne Hathaway MD [address] [place] [address] [place] [address] PCP - General Family Medicine 08/23/17 10/08/17 Justen Gale MD 2 [facility] [address] [address] PCP - General 10/09/17 Liu Jerez MD [address] [place] [address] [place] [address] Consulting Physician Gastroenterology 07/28/17 [place] [address] [facility] [address] [place] [address] Consulting Physician Pulmonary Disease 08/03/17 Khris Arthur MD [address] [facility] [address] [place] [address] Medical Oncologist/Quality Control Technician Medical Oncology 10/23/17 [place] [address] [facility] [address] [place] [address] Surgeon Orthopedic Surgery 10/23/17 [place] [address] [facility] [address] [place] [address] Consulting Physician Pain Management 10/23/17 [place] [address] [facility] [address] [place] [address] Referring Physician General Surgery 01/26/18 [place] [address] [facility] [address] [place] [address] Consulting Physician Neurology 01/26/18 documented as of this encounter
--- OUTSIDE RECORDS SUMMARY | 2024-08-07 16:35 | XMS_ITS | Encounter Summary ---
Author Organization [facility] Address [address] [place] [address] Phone Care Team Providers Care City Clerk Name Role Phone Justen Gale MD Primary Care Provider [phone] David Roberts APRN, CASE MANAGER SPECIALIST Unavailable [phone] Annel Rod MD Unavailable Reason for Visit * Reason Onset Date Comments Results 08/02/2024 Encounter Details Date Type Department Care Team (Late st Contact Info) Description 08/02/2024 Telephone [facility] [address] [place] [address] Justen Gale MD #[address] [address] Results Social History Tobacco Use Types Packs/Day Years Used Date Smoking Tobacco: Never Smokeless Tobacco: Never Alcohol Use Standard Drinks/Week Comments No 0 (1 standard drink = 0.6 oz pur e alcohol) [facility] Utilities Answer Date Recorded [...] 08/06/2024 How often do you attend chur or roman catholic services? More than 4 times per year [...] Total Score - Questions 1-9 0 07/23 [facility] - Occupational [...] time in the past [address] [facility], were you homeless or living in a jail (including now)? No 08/06/2024 Education Answer Date [...] Endocrinology [facility] #2 [place] [address] Annel Rod MD #[address] [address] documented as of this encounter Visit Diagnoses Not on filedocumented in this encounter Additional Health Concerns Assessment Noted Time PHQ-9 Depression Total Score: 0 08/02/19 25 1:09 PM CDT documented as of this encounter Care Teams City Clerk Relationship Specialty Start Date End Date Justen Gale MD #[address] [address] PCP - General Family Medicine 10/17/17 David Roberts APRN, CASE MANAGER SPECIALIST #2 [place] [address] Nurse Practitioner Advanced Practice Nurse 01/31/22 Annel Rod MD #[address] [address] Consulting Physician Endocrinology 07/01/22 documented as of this encounter
--- OUTSIDE RECORDS SUMMARY | 2024-08-07 16:35 | XMS_ITS | Encounter Summary ---
Author Organization [facility] Address [address] [place] [address] Phone Care Team Providers Care Adjunct Psychology Instructor Name Role Phone Justen Gale MD Primary Care Provider [phone] David Roberts APRN, SKI INSTRUCTOR Unavailable [phone] Annel Rod MD Unavailable Reason for Visit * Reason Onset Date Comments Medication Refill 08/06/2020 Encounter Details Date Type Department Care Team (Late st Contact Info) Description 08/06/2020 Refill [facility] #2 [facility] [place] [phone] Justen Gale MD #[address] [address] Medication Refill Social History Tobacco Use Types [...] Outpatient Visits 2 weeks ago [facility] Pili Mueller APN, SKI INSTRUCTOR 2 months ago Increased urinary frequency [facility] Pili Mueller APN, SKI INSTRUCTOR 5 months ago Urinary frequency [facility] Pili Mueller APN, SKI INSTRUCTOR 8 months ago Type 2 diabetes mellitus with diabetic polyneuropathy, with long- term current use of insulin (HCC) [facility] Pili Muelelr APN, SKI INSTRUCTOR 9 months ago [facility] Justen Urbano MD Upcoming Appointments Future Appointments In 6 days Pili Elkins APN, SKI INSTRUCTOR [facility] Laura DIRECT CARE STAFFER - Recent and Past Visits Recent Visits Date Type Provider Dept 07/20/20 Office Visit Pili Elkins APN, SKI INSTRUCTOR [facility] [place] 06/05/20 Office Visit Pili Elkins APN, NETTA [facility] 02/17/20 Office Visit Pili Elkins APN, NETTA [facility] [place] 12/03/19 Office Visit Pili Elkins APN, NETTA [facility] [place] 11/05/19 Telemedicine Justen Gale MD [facility] 07/25/19 Telemedicine [facility] Show[facility] recent visits within past 460 days [...] Endocrinology - [place] [address] [place] [address] Annel Rod MD #[address] [address] documented as of this encounter Visit Diagnoses Not on filedocumented in this encounter Additional Health Concerns Infection Onset Date Last Indicated Resolved Time COVID - 19 08/01/2024 08/01/2024 08/01/2024 3:20 PM CDT Assessment Noted Time PHQ-9 Depression Total Score: 0 07/21/19 21 3:00 PM CDT documented as of this encounter Care Teams Adjunct Psychology Instructor Relationship Specialty Start Date End Date Justen Gale MD #2 [facility] [address] [place] [address] PCP - General Family Medicine 10/17/17 David Roberts, WORM FARM LABORER, SKI INSTRUCTOR #2 [place] [address] Nurse Practitioner Advanced Practice Nurse 01/31/22 Annel Rod MD #2 [facility] [address] [place] [address] Consulting Physician Endocrinology 07/01/22 documented as of this encounter
--- OUTSIDE RECORDS SUMMARY | 2024-08-07 16:35 | XMS_ITS | Encounter Summary ---
Author Organization [facility] Address [address] [place] [address] Phone Care Team Providers Care Beauty Counselor Name Role Phone Justen Gale MD Primary Care Provider [phone] David Roberts APRN, MEAT HANGER Unavailable [phone] Annel Rod MD Unavailable Reason for Visit * Reason Comments Medication Refill Encounter Details Date Type Department Care Team (Late st Contact Info) Description 03/05/2023 Refill [facility] - Family [facility] #2 [place] [address] Pili Elkins APRN, MEAT HANGER #[address] [address] Medication Refill Social History Tobacco [...] on 10/19/2022 by Justen Gale MD R MILL OPERATOR documented in this encounter Plan of Treatment Upcoming Encounters Date Type Department Care Team (Late st Contact Info) Description 09/18/2024 2:45 PM CDT Office Visit [facility] - Endocrinology [facility] #2 [place] [address] Annel Rod MD #2 [facility] [address] [place] [address] documented as of this encounter Visit Diagnoses Diagnosis Essential hypertension Unspecified essential hypertension documented in this encounter Additional Health Concerns Infection Onset Date Last Indicated Resolved Time COVID - 19 08/01/2024 08/01/2024 08/01/2024 3:20 PM CDT Assessment Noted Time PHQ-9 Depression Total Score: 8 01/18/20 23 2:24 PM CDT documented as of this encounter Care Teams Beauty Counselor Relationship Specialty Start Date End Date Justen Gale MD #2 [facility] [address] [place] [address] PCP - General Family Medicine 10/17/17 David Roberts APRN, MEAT HANGER #2 [place] [address] Nurse Practitioner Advanced Practice Nurse 01/31/22 Annel Rod MD #[address] [address] Consulting Physician Endocrinology 07/01/22 documented as of this encounter
--- OUTSIDE RECORDS SUMMARY | 2024-08-07 16:35 | XMS_ITS | Encounter Summary ---
Author Organization [facility] Address [address] [place] [address] Phone Care Team Providers Care Apartment Community Manager Name Role Phone Justen Gale MD Primary Care Provider [phone] David Roberts APRN, ABSTRACT CLERK Unavailable [phone] Annel Rod MD Unavailable Reason for Visit * Reason Comments Medication Refill Encounter Details Date Type Department Care Team (Late st Contact Info) Description 07/12/2022 Refill [facility] - Family Medicine [facility] #2 [place] [phone] Justen Gale MD #[address] [address] Medication Refill Social History Tobacco Use Types [...] 07/05/22 Office Visit Pili Elkins APRN, NETTA [facility] [place] 05/02/22 Office Visit Justen Gale MD [facility] [place] 03/03/22 Office Visit Pili Elkins APRN, ABSTRACT CLERK [facility] [place] 01/03/22 Office Visit Dannielle Berg PAC [facility] [place] 12/07/21 Office Visit Pili Elkins APRN, NETTA [facility] [place] 11/09/21 Office Visit Pili Elkins APRN, NETTA [facility] [place] 10/08/21 Office Visit Angelito Alegria APRN, NETTA [facility] [place] 08/30/21 Office Visit [facility] MD [facility] Showing recent visits within past 365 days [...] Group - Endocrinology [facility] #2 [place] [address] Annel Rod MD #[address] [address] documented as of this encounter Visit Diagnoses Not on filedocumented in this encounter Additional Health Concerns Infection Onset Date Last Indicated Resolved Time COVID - 19 08/01/2024 08/01/2024 08/01/2024 3:20 PM CDT Assessment Noted Time PHQ-9 Depression Total Score: 0 07/21/19 3:00 PM CDT documented as of this encounter Care Teams Apartment Community Manager Relationship Specialty Start Date End Date Justen Gale MD #[address] [address] PCP - General Family Medicine 10/17/17 David Roberts APRN, ABSTRACT CLERK #2 [place] [address] Nurse Practitioner Advanced Practice Nurse 01/31/22 Annel Rod MD #[address] [address] Consulting Physician Endocrinology 07/01/22 documented as of this encounter
--- OUTSIDE RECORDS SUMMARY | 2024-08-07 16:35 | XMS_ITS | Clinical Summary ---
Author Organization [facility] Address [facility] [place] [address] Care Team Providers Care Superintendent Compressor Stations Name Role Phone Meena Bansal MD Unavailable [phone] Justen Gale MD Primary Care Provider [phone] Allergies Active Allergy Reactions Criticality Noted Date [...] reflux disease 09/05/2020 Malignant tumor of breast ([facility]/HCC [facility]) 08/22 Knee pain 09/05/2020 Other chronic [...] 03/18/2018 Assessment & Plan (03/18/2018 2:55 AM PARK ACTIVITIES COORDINATOR): Acute, patient reported as epigastric pain however may be atypical presentation. Troponins negative x2. Also in differential is GERD, PUD - Admit to observation -Follow-up troponins -Monitor vitals -N.p.o. at midnight - Stress echo in a.m. - Consider cardiology consult based on results of stress test -Begin Protonix Epigastric pain 03/18/2018 Assessment & Plan (03/18/2018 5:39 AM PARK ACTIVITIES COORDINATOR): Acute, non radiating, worsens with lying down, [...] Speech impairment 01/30/2018 CVA (cerebral vascular accident) ([facility] HHS/ C) 01/24/2018 Neck pain on right side 12/01/2017 Anxiety and depression 11/12/2017 Chronic anticoagulation 11/09/2017 Constipation 11/09/2017 Uncontrolled type 2 diabetes mellitus with hyperglycemia, with long-term current use of insulin ([facility]) 11/06/2017 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 -continue exemestane Acute deep vein thrombosis ( DVT) of proximal vein of right lower extremity ([facility]) 10/17/2017 Dysuria 10/17/2017 Hyperthyroidism 10/17/2017 Cancer of overlapping sites of left female breast ([facility]) 10/13/2017 Syncope 09/29/2017 High blood pressure 08/22/2017 Overview (09/05/2020): Last Assessment & Plan: On lisinopril Last Assessment & Plan: On lisinopril Assessment & Plan (08/30/2018 9:57 PM CDT): Chronic. Controlled. -continue home medications Assessment & Plan (03/18/2018 2:51 AM PARK ACTIVITIES COORDINATOR): Chronic, BPs currently 127/78 - To new home meds Morbid obesity with BMI of 50.0-59.9, adult 04/2017 Sepsis ([facility]) 08/22/2017 Type 2 diabetes mellitus ([facility]) 08/22 Overview (09/05/2020): Last Assessment & Plan: Hold janument. Start on SSI and accucheks Assessment & Plan (08/30/2018 10:01 PM CDT): Chronic. Controlled. -continue home insulin regimen of lantus 50 units q am -lispro 20 units with breakfast and lunch. 22 units with dinner. Assessment & Plan (03/18/2018 2:53 AM PARK ACTIVITIES COORDINATOR): Chronic, patient reports medical compliance with 50 units of Lantus daily and 15 units of Humalog before meals. No recent HbA1c - Monitor POC glucose -[place]omer home regimen - Consider sliding scale insulin -Follow-up HbA1c Bronchitis 08/20/2017 LUL (obstructive sleep apnea) 08/01/2017 Assessment & Plan (03/18/2018 2:54 AM PARK ACTIVITIES COORDINATOR): Chronic, on CPAP at home - Continue home CPAP History of DVT (deep vein thrombosis) 08/01/2017 Assessment & Plan (03/18/2018 2:54 AM PARK ACTIVITIES COORDINATOR): Chronic - Continue home Xarelto Chest pressure 08/01/2017 Diet-controlled diabetes mellitus ([facility] HHS/H CC) 08/01/2017 History of pulmonary embolism 08/01/2017 Hyponatremia 08/01/2017 Positive blood culture 08/01/2017 Acute pharyngitis 07/27/2017 Generalized weakness 07/27/2017 Nausea and vomiting 07/26/2017 Overview (09/05/2020): Overview: Overview: Added automatically from request for surgery [id number] Overview: Added automatically from request for surgery [id number] Added automatically from request for surgery [id number] Neuropathy 07/05/2017 History of breast cancer 02/06/2017 Pulmonary embolism ([facility]) 08/09/2016 Overview (09/05/2020): Last Assessment & [...] syndrome Assessment & Plan (03/18/2018 2:54 AM PARK ACTIVITIES COORDINATOR): Chronic -Continue home ropinirole Pain of lower [...] drink = 0.6 oz pur e alcohol) [facility] Utilities Answer Date Recorded In the past 12 months has thePlatform gas, oil, or water [employer] threatened to shut off services in your [...] time in the past 12 m [facility], were you homeless or living in a detention (including now)? No 10/13/2023 Comments No Sex and Gender Information Value Date Recorded Sex Assigned at Female 09/06/2020 12:50 AM CDT Legal Sex Female 10:47 AM CDT Gender Identity Female 09/06/2020 12:50 AM CDT Sexual Orientation Straight 03/18/2018 3: 01 AM PARK ACTIVITIES COORDINATOR Last Filed Vital Signs Vital Sign Reading [...] 8.0(H) <5.7 % 10/14/2023 5:50 AM CDT [facility] Comment: ADA GUIDELINES 2010 5.7 TO 6.4% INCREASED RISK OF DIABETES > OR = 6.5% CONSISTENT WITH DIABETES ESTIMATED AVG GLUCOSE 183 mg/dL 10/14/2023 5:50 AM CDT [facility] 10/14/2023 3:40 AM CDT us Peggy Bland MD LABORATORY Final Result [facility] [address] [place] [address], [place] [phone] * LIPID PANEL (10/14/2023 3:40 AM CDT) [...] 0.0 - 4.5 10/14/2023 4:31 AM T [facility] VLDL CALCULATION 23 5 - 55 MG/DL 10/14/2023 4:31 AM CDT [facility] LIPID INTERPRETATION 10/14/2023 4:31 AM CDT [facility] Comment: [facility] CONCENSUS REPORT RECOMMENDATIONS: ADULT CHILD LOW RISK: CHOLESTEROL <200 <170 TRIGLYCERIDE <150 --- HDL >=60 --- LDL <100 <110 BORDERLINE: CHOLESTEROL 200-239 170-199 TRIGLYCERIDE 150-199 --- HDL 40-59 --- LDL 100-159 110-129 HIGH RISK: CHOLESTEROL >=240 >=200 TRIGLYCERIDE >=200 --- HDL <40 --- LDL >=160 >=130 10/14/2023 3:40 AM CDT Peggy Bland MD LABORATORY Final Result [facility] [address] [place] [address], [place] [phone] from Last 3 Months or Most Recently Relevant to Health Maintenance Insurance [facility] MEDICAID MEDICAID [facility] Advance Directives * Full Code (Latest [...] 2:42 AM 03/18/2018 4:50 PM Care Teams Superintendent Compressor Stations Relationship Specialty Start Date End Date Justen Gale MD [address] [address] PCP - General FAMILY PRACTICE 08/20/17 Meena Bansal [facility] [address] [facility] [address] [address] [place] Vat Operator CARDIOVASCULAR DISEASE 04/24/16
[2024-08-07] MEDS: ACETAMINOPHEN 500 MG TABLET 1000 MG PO (16:39)
[2024-08-07 16:42] VITALS: BP 148/84; PULSE 83; RESP 21; O2SAT 99
[2024-08-07 16:45] VITALS: BP 153/81; PULSE 85; RESP 15; O2SAT 100
[2024-08-07] MEDS: MAGNESIUM SULF 1 GM/D5W 100 ML 1 GM/100 ML BAG IVPB (17:31)
[2024-08-07 18:55] VITALS: BP 132/76; PULSE 69; RESP 18; O2SAT 97
== END 2024-08-07 18:57 | disposition home or self-care (01) ==
PROVIDERS: Emergency Medicine; Emergency Provider Physician Assistant; PCP Internal Medicine
DX: R06.00 Dyspnea, unspecified (principal); E04.2 Nontoxic multinodular goiter; E83.42 Hypomagnesemia; I50.9 Heart failure, unspecified; E11.42 Type 2 diabetes mellitus with diabetic polyneuropathy; E66.01 Morbid (severe) obesity due to excess calories; Z68.43 Body mass index [BMI] 50.0-59.9, adult; G47.33 Obstructive sleep apnea (adult) (pediatric); G25.81 Restless legs syndrome; F41.9 Anxiety disorder, unspecified; F32.A Depression, unspecified; Z96.651 Presence of right artificial knee joint; Z86.718 Personal history of other venous thrombosis and embolism; Z87.891 Personal history of nicotine dependence; Z86.711 Personal history of pulmonary embolism; Z85.3 Personal history of malignant neoplasm of breast; Z87.442 Personal history of urinary calculi; Z86.16 Personal history of COVID-19; Z90.49 Acquired absence of other specified parts of digestive tract; Z90.13 Acquired absence of bilateral breasts and nipples; Z90.721 Acquired absence of ovaries, unilateral; Z79.4 Long term (current) use of insulin; Z79.01 Long term (current) use of anticoagulants; Z79.899 Other long term (current) drug therapy; R94.31 Abnormal electrocardiogram [ECG] [EKG]
CPT/HCPCS: 36415; 71045; 71275; 80053; 81003; 83735; 83880; 84484; 85025; 85610; 85730; 87637; 93005; 96365; 99284; A9270; J3475; Q9967

== ENCOUNTER 2024-08-13 21:49 | Emergency (ER) | payer MEDICARE, SELFPAY ==
--- NOTE | ~2024-08-13 | CT_ITS ---
CT soft tissue neck w con Ordering provider: Sree Marcelino PA-C History: 69 years Female with L tonsillar swelling, strep (+) . Comparison: 12/05/2023 Technique: CT soft tissues neck was performed with contrast. The dose-length product was 567.49 mGy-cm. Findings: LOWER HEAD: The visualized brain parenchyma, optic globes/orbits and mastoids are normal. Air-fluid level within the right maxillary sinus with mucoperiosteal thickening. The remaining visualized para nasal sinuses are well aerated. SALIVARY GLANDS: Symmetric THYROID: Redemonstration of a multinodular goiter, unchanged from prior. SUPRAHYOID DEEP SPACES: Unremarkable CAROTID ARTERIES: Patent JUGULAR VEINS: Patent, right dominant TONSILS: Redemonstration of symmetric enlargement of the bilateral lingual and palatine tonsils resul ting in symmetric narrowing of the oropharyngeal and nasopharyngeal airway without a rim-enhancing fl uid collection detected. ORAL CAVITY: Partially obscured by dental amalgam but unremarkable as visualized. PHARYNX, LARYNX AND TRACHEA: Patent. No prevertebral soft tissue swelling. Small right paratracheal h ernia, unchanged from prior. SUPERFICIAL SOFT TISSUES: Unremarkable. No morphologically suspicious or pathologically enlarged lymp h nodes. THORACIC INLET/VISUALIZED UPPER CHEST: Normal. SKELETAL: Age appropriate degenerative changes. IMPRESSION: Redemonstration of symmetric enlargement of the bilateral lingual and palatine tonsils, similar in ap pearance to 2023 examination. No rim-enhancing fluid collection. Inflammatory sinus disease Reviewed, dictated and finalized at location A. IMPRESSION: Redemonstration of symmetric enlargement of the bilateral lingual and palatine tonsils, similar in appearance to 2023 examination. No rim-enhancing fluid collection. Inflammatory sinus disease
[2024-08-13 21:52] VITALS: BP 181/85; PULSE 85; RESP 15; TEMP 35.8; O2SAT 98
--- OUTSIDE RECORDS SUMMARY | 2024-08-13 21:52 | XMS_ITS ---
Author Organization [facility] Address [address] [place] [id number] Care Team Providers Care Repairer Welding Equipment Name Role Phone Liu Jerez MD Unavailable Albert Corbin MD Unavailable Justen Gale MD Primary Care Provider Khris Arthur MD Unavailable [phone] Ko Melendez MD Unavailable John Paul Moyer MD Unavailable Annel Rod MD Unavailable Anali MARSHALL MD, Carlos M. 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 10/17/2019 Thyroid [...] long-term current use of insulin ([facility]) 10/23/2017 Assessment & Plan (10/23/2017 [...] 10/13/2017 Assessment & Plan (05/22/2024 12:29 PM MACHINE HEEL SEAT FITTER): -Hx stage II, ER positive, HER2 negative [...] 08/01/2017 Assessment & Plan (05/22/2024 12:33 PM MACHINE HEEL SEAT FITTER): -Hx LUL -Hospital provided CPAP ordered History of DVT (deep vein thrombosis) 08/01/2017 History of pulmonary embolism 08/01/2017 Generalized weakness 07/27/2017 Dyspnea 07/27/2017 Unintentional weight loss 07/27/2017 Acute cystitis without hematuria 07/27/2017 Nausea and vomiting 07/26/2017 Overview (07/28/2017): Added automatically from request for surgery [id number] Pulmonary embolism 08/09/2016 Assessment & Plan (10/23/2017 2:05 AM CDT): On Rivaroxaban Lymphedema of left upper extremity 08/09/2016 Assessment & Plan (05/25/2024 7:53 AM MACHINE HEEL SEAT FITTER): S/p L axillary lymph node dissection 2014, [...] syndrome Assessment & Plan (05/22/2024 11:18 AM MACHINE HEEL SEAT FITTER): -continue home Requip 5mg nightly Pain of lower extremity 03/12/2013 Overview (07/29/2016): Leg pain Essential hypertension Assessment & Plan (05/23/2024 10:42 AM MACHINE HEEL SEAT FITTER): -Chart history of HTN but not on meds -BP elevated on admission, likely some pain contributing -Monitor closely once pain under adequate control, discussed following up with PCP for this Chronic anticoagulation Restless leg syndrome 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 Type 2 diabetes mellitus without complication Assessment & Plan (05/24/2024 1:39 PM MACHINE HEEL SEAT FITTER): -Last Ha1c 8.4 in 2023, repeat 8.7 [...] left female breast, unspecified estrogen receptor status (HCC)alf (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
--- OUTSIDE RECORDS SUMMARY | 2024-08-13 21:52 | XMS_ITS | Clinical Summary ---
Author Organization [facility] Address [address] [place] [id number] Care Team Providers Care Fruit Loader Name Role Phone Liu Jerez MD Unavailable Albert Corbin MD Unavailable Justen Gale MD Primary Care Provider Khris Arthur MD Unavailable [phone] Ko Melendez MD Unavailable [phone] John Paul Moyer MD Unavailable Annel Rod [...] 05/22/2024 Assessment & Plan (05/26/2024 10:08 AM RESIZER OPERATOR): Presenting with urinary symptoms of right [...] 05/22/2024 Assessment & Plan (05/25/2024 7:52 AM RESIZER OPERATOR): Hx of breast cancer c/b DVT/bilateral [...] 05/22/2024 Assessment & Plan (05/22/2024 1:14 PM RESIZER OPERATOR): -long-standing chronic back pain -CT L [...] 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) 2021 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 10/17/2019 Thyroid [...] complication, without long-term current use of insulin ([facility]) 10/23/2017 Assessment & Plan (10/23/2017 [...] 10/13/2017 Assessment & Plan (05/22/2024 12:29 PM RESIZER OPERATOR): -Hx stage II, ER positive, HER2 [...] 08/01/2017 Assessment & Plan (05/22/2024 12:33 PM RESIZER OPERATOR): -Hx LUL -Hospital provided CPAP ordered History of DVT (deep vein thrombosis) 08/01/2017 History of pulmonary embolism 08/01/2017 Generalized weakness 07/27/2017 Dyspnea 07/27/2017 Unintentional weight loss 07/27/2017 Acute cystitis without hematuria 07/27/2017 Nausea and vomiting 07/26/2017 Overview (07/28/2017): Added automatically from request for surgery [id number] Pulmonary embolism 08/09/2016 Assessment & Plan (10/23/2017 2:05 AM CDT): On Rivaroxaban Lymphedema of left upper extremity 08/09/2016 Assessment & Plan (05/25/2024 7:53 AM RESIZER OPERATOR): S/p L axillary lymph node dissection [...] syndrome Assessment & Plan (05/22/2024 11:18 AM RESIZER OPERATOR): -continue home Requip 5mg nightly Pain of lower extremity 03/12/2013 Overview (07/29/2016): Leg pain Essential hypertension Assessment & Plan (05/23/2024 10:42 AM RESIZER OPERATOR): -Chart history of HTN but not on meds -BP elevated on admission, likely some pain contributing -Monitor closely once pain under adequate control, discussed following up with PCP for this Chronic anticoagulation Restless leg syndrome 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 Type 2 diabetes mellitus without complication Assessment & Plan (05/24/2024 1:39 PM RESIZER OPERATOR): -Last Ha1c 8.4 in 2023, repeat [...] CDT - 07/01/2024 10:18 PM CDT Emergency [facility] Emergency Department [facility] [place], [place] [address] Myalgia (Primary Dx); Viral syndrome Discharge Disposition: Discharge to home or self care 05/30/2024 Orders Only [facility] Oncology [address] [facility] [address] [place] [address] Radha Mcgrath RN Lymphedema of left arm (Primary Dx); Malignant neoplasm of upper-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, unspecified estrogen receptor status (HCC); Malignant neoplasm of overlapping sites of left female breast, unspecified estrogen receptor status (HCC); Malignant neoplasm of female breast, unspecified estrogen receptor status, unspecified laterality, unspecified site of breast (HCC) 05/24/2024 Telephone [facility] [address] [place] [address] Radha Warner RN 05/23/2024 8:10 AM RESIZER OPERATOR Ancillary Procedure [facility] Vascular Lab IP [address] [facility] [address] [place] [address] 05/21/2024 9:12 PM RESIZER OPERATOR - 05/26/2024 6:45 PM RESIZER OPERATOR Hospital Encounter [facility] [address] [place] [address] Jimmie Zavala MD Liss, MD Ra Parnell, MD Sebastian Claros Rehan, MD Left arm pain (Primary Dx); Left leg pain; Shortness of breath; Urinary tract infection without hematuria, site unspecified; Allergy to drug Discharge Disposition: Discharge to home or self care 05/21/2024 12:58 PM RESIZER OPERATOR - 05/21/2024 11:59 PM RESIZER OPERATOR Hospital Encounter [facility] [address] [place] [address] Discharge Disposition: Discharge to home or self care 05/21/2024 11:00 AM RESIZER OPERATOR - 05/21/2024 11:59 PM RESIZER OPERATOR Hospital Encounter [facility] - Breast Imaging [address] [place] [address] 8 [place] [address] History of breast cancer; Axillary pain, left Discharge Disposition: Discharge to home or self care 05/16/2024 Telephone [facility] Oncology [address] [place] [address] 8 [place] [phone] Jeanine Ba Cordelia 05/16/2024 Orders Only [facility] Oncology [address] [place] [address] 8 [place] [phone] Radha Mcgrath RN History of breast cancer (Primary Dx); Axillary pain, left 05/16/2024 Orders Only [facility] Oncology [address] [place] [address] 8 [place] [phone] Khris Arthur MD Swelling of left upper extremity (Primary Dx); Swelling of left lower extremity from Last [...] drink = 0.6 oz pur e alcohol) [facility] Utilities Answer Date Recorded In the [...] often do you attend chur ch or oriental orthodox services? More than 4 times per year [...] in a fpc (including now)? No 08/15/2023 Housing Stability Vital [...] were you homeless or living in a fpc (including now)? No 05/24/2024 Personal Safety Answer Date Recorded Have you ever been in or are you currently in a harmful physical or emotional relationship or is someone making you feel afraid or unsafe? Denies 07/01/2024 Comments No Sex and Gender Information Value Date Recorded Sex Assigned at Not on file Legal Sex Female 12:24 AM RESIZER OPERATOR Gender Identity Not on file Sexual [...] Risk Assessment 05/26/2025 05/26/2024 eGFR 07/01/2025 07/01/2024, 02/05/2024, 05/25/2024, Additional history exists DTaP/Tdap/Td Vaccine (2 [...] GLUCOSE DEVICE Routine 05/26/2024 4 :27 PM RESIZER OPERATOR POCT GLUCOSE DEVICE Routine 05/26/2024 1 1:38 AM RESIZER OPERATOR POCT GLUCOSE DEVICE Routine 05/26/2024 8 :12 AM RESIZER OPERATOR EGFR Routine 05/26/2024 12:05 AM RESIZER OPERATOR DIFFERENTIAL AUTO Routine 05/26/2024 12: 05 AM RESIZER OPERATOR PHOSPHORUS Routine 05/26/2024 12:05 AM RESIZER OPERATOR COMPREHENSIVE METABOLIC PANEL Routine 05/26/2024 12:05 AM RESIZER OPERATOR MAGNESIUM Routine 05/26/2024 12:05 AM RESIZER OPERATOR CBC WITH AUTO DIFFERENTIAL Routine 05/26/2024 12:05 AM RESIZER OPERATOR POCT GLUCOSE DEVICE Routine 05/25/2024 7 :44 PM RESIZER OPERATOR POCT GLUCOSE DEVICE Routine 05/25/2024 5 :24 PM RESIZER OPERATOR POCT GLUCOSE DEVICE Routine 05/25/2024 1 1:37 AM RESIZER OPERATOR POCT GLUCOSE DEVICE Routine 05/25/2024 7 :27 AM RESIZER OPERATOR EGFR Routine 05/25/2024 12:20 AM RESIZER OPERATOR DIFFERENTIAL AUTO Routine 05/25/2024 12: 20 AM RESIZER OPERATOR PHOSPHORUS Routine 05/25/2024 12:20 AM RESIZER OPERATOR COMPREHENSIVE METABOLIC PANEL Routine 05/25/2024 12:20 AM RESIZER OPERATOR MAGNESIUM Routine 05/25/2024 12:20 AM RESIZER OPERATOR CBC WITH AUTO DIFFERENTIAL Routine 05/25/2024 12:20 AM RESIZER OPERATOR POCT GLUCOSE DEVICE Routine 05/24/2024 8 :13 PM RESIZER OPERATOR POCT GLUCOSE DEVICE Routine 05/24/2024 5 :17 PM RESIZER OPERATOR POCT GLUCOSE DEVICE Routine 05/24/2024 1 2:49 PM RESIZER OPERATOR POCT GLUCOSE DEVICE Routine 05/24/2024 9 :22 AM RESIZER OPERATOR HERPES SIMPLEX VIRUS (HSV) PCR Routine 05/24/2024 8:47 AM RESIZER OPERATOR POCT GLUCOSE DEVICE Routine 05/24/2024 8 :22 AM RESIZER OPERATOR EGFR Routine 05/24/2024 12:29 AM RESIZER OPERATOR DIFFERENTIAL AUTO Routine 05/24/2024 12: 29 AM RESIZER OPERATOR PHOSPHORUS Routine 05/24/2024 12:29 AM RESIZER OPERATOR COMPREHENSIVE METABOLIC PANEL Routine 05/24/2024 12:29 AM RESIZER OPERATOR MAGNESIUM Routine 05/24/2024 12:29 AM RESIZER OPERATOR CBC WITH AUTO DIFFERENTIAL Routine 05/24/2024 12:29 AM RESIZER OPERATOR POCT GLUCOSE DEVICE Routine 05/23/2024 8 :16 PM RESIZER OPERATOR POCT GLUCOSE DEVICE Routine 05/23/2024 6 :14 PM RESIZER OPERATOR POCT GLUCOSE DEVICE Routine 05/23/2024 1 2:17 PM RESIZER OPERATOR US VEIN DUPLEX LOWER EXTREMITY BILATERAL COMPLETE IP Routine 05/23/2024 11:45 AM RESIZER OPERATOR POCT GLUCOSE DEVICE Routine 05/23/2024 8 :16 AM RESIZER OPERATOR DIFFERENTIAL AUTO Routine 05/23/2024 2:3 0 AM RESIZER OPERATOR CBC WITH AUTO DIFFERENTIAL Routine 05/23/2024 2:30 AM RESIZER OPERATOR EGFR Routine 05/23/2024 12:42 AM RESIZER OPERATOR LACTATE DEHYDROGENASE Routine 05/23/2024 12:42 AM RESIZER OPERATOR URIC ACID Routine 05/23/2024 12:42 AM RESIZER OPERATOR TYPE AND SCREEN Timed 05/23/2024 12:42 AM RESIZER OPERATOR PHOSPHORUS Routine 05/23/2024 12:42 AM RESIZER OPERATOR COMPREHENSIVE METABOLIC PANEL Routine 05/23/2024 12:42 AM RESIZER OPERATOR MAGNESIUM Routine 05/23/2024 12:42 AM RESIZER OPERATOR POCT GLUCOSE DEVICE Routine 05/22/2024 8 :56 PM RESIZER OPERATOR POCT GLUCOSE DEVICE Routine 05/22/2024 6 :09 PM RESIZER OPERATOR POCT GLUCOSE DEVICE Routine 05/22/2024 4 :[address] ABDOMEN PELVIS W CONTRAST ED 05/22/2024 2:32 PM RESIZER OPERATOR POCT GLUCOSE DEVICE Routine 05/22/2024 1 2:58 PM RESIZER OPERATOR POCT GLUCOSE DEVICE Routine 05/22/2024 9 :29 AM RESIZER OPERATOR POCT GLUCOSE DEVICE Routine 05/22/2024 6 :[address] CHEST PE W CONTRAST ED 05/22/2024 1:31 AM RESIZER OPERATOR D-DIMER, QUANTITATIVE Routine 05/22/2024 12:24 AM RESIZER OPERATOR URINALYSIS, MICROSCOPIC ONLY Routine 05/21/2024 11:09 PM RESIZER OPERATOR TROPONIN I HIGH-SENSITIVITY 2-HOUR Timed 05/21/2024 11:09 PM RESIZER OPERATOR URINE CULTURE Routine 05/21/2024 11:09 PM RESIZER OPERATOR RESPIRATORY PATHOGEN PANEL Routine 05/21/2024 11:09 PM RESIZER OPERATOR URINALYSIS AND REFLEX TO MICROSCOPIC AND CULTURE Routine 05/21/2024 11:09 PM RESIZER OPERATOR POCT GLUCOSE DEVICE Routine 05/21/2024 8 :55 PM RESIZER OPERATOR TROPONIN I HIGH-SENSITIVITY 4-HOUR Timed 05/21/2024 7:26 PM RESIZER OPERATOR LIPID PANEL STAT 05/21/2024 4:20 PM RESIZER OPERATOR HEMOGLOBIN A1C STAT 05/21/2024 4:20 PM RESIZER OPERATOR EGFR STAT 05/21/2024 4:20 PM RESIZER OPERATOR DIFFERENTIAL AUTO STAT 05/21/2024 4:2 0 PM RESIZER OPERATOR TROPONIN I HIGH-SENSITIVITY SERIES (BASELINE, 2HR, 4HR, 6HR) STAT 05/21/2024 4:20 PM RESIZER OPERATOR COMPREHENSIVE METABOLIC PANEL STAT 05/21/2024 4:20 PM RESIZER OPERATOR CBC WITH AUTO DIFFERENTIAL STAT 05/21/2024 4:20 PM RESIZER OPERATOR XR CHEST PA LATERAL 2 VIEWS ED 05/21/2024 2:23 PM RESIZER OPERATOR POCT GLUCOSE DEVICE Routine 05/21/2024 1 :39 PM RESIZER OPERATOR ECG 12-LEAD STAT 05/21/2024 1:36 PM RESIZER OPERATOR US AXILLARY LEFT Schedule Routine, Read Routine (OP Routine) 05/21/2024 12:13 PM RESIZER OPERATOR History of breast cancer Axillary pain, left DEXA AXIAL SKELETON BONE DENSITY 1 OR [...] breath since last night. Took tylenol just [employer]. TECHNIQUE: CT scan of the chest performed [...] Electronically signed by Juve Gallegos M.D. AR: VLAERY Report ID: [id number] Reading Location: [id number] Procedure Note Juve Gallegos MD - 07/01/2024 [...] Juve Gallegos M.D. AR: VALERY Report ID: [id number] Reading Location: [place] [address] [address] IMG [address] PROCEDURES Final Resu lt * (ABNORMAL) Troponin T high-sensitivity 2-hour (07/01/2024 3:43 PM CDT) Trop T hs 27(H) <=14 ng/L Comment: Interpretive Data For further hscTnT resources including the diagnostic algorithm and an aid in interpretation, copy and paste this link: https://nrl.testcatalog.org/show/hsTrop Current Interpretive Data last revised 2020. Testing performed by: [address] [address] Trop T hs delta 0 ng/L MARY JANE PHAM Comment:Testing performed by : [address] [address] Trop T hs interp Insignificant MARY JANE Comment:Testing performed by : [address] [address] Blood 07/01/2024 3:43 PM CDT 07/01/2024 3:52 PM CDT us Ilana Stevens MD LAB BLOOD ORDERABLES F inal Result [facility] [address] [facility] Department [place] [address] * (ABNORMAL) Urinalysis reflex to microscopic and culture Urine (07/01/2024 3:43 PM CDT) Color, ur Yellow Yellow Comment:Testing performed by : [address] [address] Clarity, ur Clear Clear MARY JANE Comment:Testing performed by : [address], [place]., [address] Specific gravity, ur 1.020 1.003 - 1.030 MARY JANE Comment:Testing performed by : [address], [place]., [address] pH, urine 6.0 MARY JANE Comment: Interpretive Data U rine pH is affected by diet, medications, systemic acid-base disturbances, and renal tubular function. pH may affect urinary stone formation. For example, urine pH below 6.0 may help reduce the tendency for calcium phosphate stones and pH greater than 6.0 may reduce the tendency for uric acid stone formation. Source: [facility] [employer] Current Interpretive Data was last revised on 2017 Testing performed by: [address], [place]., [address] Protein, ur ql Negative Negative MARY JANE Comment:Testing performed by : [address] [address] Glucose, ur ql 2+(A) Negative MARY JANE Comment:Testing performed by : [address] [address] Ketones, ur Negative Negative MARY JANE Comment:Testing performed by : [address] [address] Bilirubin, ur Negative Negative MARY JANE Comment:Testing performed by : [address] [address] Blood, ur Trace(A) Negative MARY JANE Comment:Testing performed by : [address] [address] Urobilinogen, ur <2.0 <2.0 mg/dL MARY JANE Comment:Testing performed by : [address] [address] Nitrite, ur Negative Negative MARY JANE Comment:Testing performed by : [address] [address] Leukocyte esterase, ur Negative Negative MARY JANE Comment:Testing performed by : [address] [address] UA reflex comment Reflex to microscopic UA will be performed. MARY JANE Comment:Testing performed by : [address] [address] Urine 07/01/2024 3:43 PM CDT 07/01/2024 3:52 PM CDT Ilana Stevens MD LAB MICROBIOLOGY - GEN ERAL ORDERABLES Final Result Performing Organization Address [facility] de Phone Number MARY JANE [address] [place] [address] * (ABNORMAL) Urinalysis, microscopic only (07/01/2024 3:43 PM CDT) WBC, ur 0-5 0 - 5 /HPF Comment:Testing performed by : [address] [address] RBC, ur 3-5(A) 0 - 2 /HPF MARY JANE Comment:Testing performed by : [address] [address] Epithelial cells, squamous, ur 1-5 0 - 5 /HPF MARY JANE Comment:Testing performed by : [address] [address] Mucous, ur Present(A) MARY JANE Comment:Testing performed by : [address] [address] Culture Reflex Comment Reflex conditions for urine culture (WBC >10) not met. MARY JANE Comment:Testing performed by : [address] [address] Urine 07/01/2024 3:43 PM CDT 07/01/2024 3:52 PM CDT Ilana Stevens MD LAB URINE ORDERABLES F inal Result Performing Organization Address [facility] Co de Phone Number [facility] [address] [facility] [place] [address] * XR Chest 1 Vw Portable (if [...] Romelia Bowen D.O. PS: PS Report ID: [id number] Reading Location: [id number] Procedure Note Romelia Bowen, - 07/01/2024 EXAM [...] Romelia Bowen D.O. PS: PS Report ID: [id number] Reading Location: [id number] us Ilana Stevens MD IMG XR PROCEDURES Deann l Result * ECG 12 lead (07/01/2024 2:05 PM CDT) Ventricular Rate EKG/Min [address] [facility] Atrial Rate 76 BPM [facility] [place]-Interval (MSEC) [address] [facility] QRS-Interval (MSEC) [address] [facility] QT-Interval (MSEC) [address] [facility] QTc 434 ms [facility] P [place] [address] [facility] R [place] 22 degrees [facility] T [place] 46 degrees [facility] Diagnosis Normal sinus rhythm Normal ECG When compared with ECG of 28-DEC-2023 12:49, No significant change was found Confirmed by DUTCH BURGOS M.D. ([id number]) on 07/01/2024 10:10:22 PM [facility] 07/01/2024 2:05 PM CDT 07/01/2024 10:10 PM CDT us Ilana Stevens MD ECG ORDERABLES Final Result [facility] * (ABNORMAL) Troponin T high-sensitivity series (baseline, 2hr, 4hr, 6hr) (07/01/2024 2:02 PM CDT) Pathologist [facility] Trop T hs 27(H) <=14 ng/L Comment: Interpretive Data For further hscTnT resources including the diagnostic algorithm and an aid in interpretation, copy and paste this link: https://nrl.testcatalog.org/show/hsTrop Current Interpretive Data last revised 2020. Testing performed by: [facility], [address] [place] [address]., [address] Blood 07/01/2024 2:02 PM CDT 07/01/2024 2:12 PM CDT us Ilana Stevens MD LAB BLOOD ORDERABLES F inal Result Performing Organization Address City/[facility]/ZIP Co de Phone Number MARY JANE [facility] [facility] Department [place] [address] * Influenza A/B, RSV, and COVID-19 PCR Nasopharyngeal (07/01/2024 2:02 PM CDT) [facility] COVID-19 RNA Negative Negative Comment:Testing performed by : [address] [address] Influenza A RNA Negative Negative [facility] Comment:Testing performed by : [address] [address] Influenza B RNA Negative Negative [facility] Comment:Testing performed by : [address] [address] RSV RNA Negative Negative [facility] Comment: Interpretive data: Testing performed by [facility]. This test is performed using the [employer] Xpert Xpress CoV-2/Flu/RSV plus assay. This is a multiplex, real-time reverse transcriptase PCR assay intended for the qualitative detection of nucleic acid from SARS-CoV-2, influenza A, influenza B, and respiratory syncytial virus. This assay has been cleared by the [place] Food and Drug administration. The performance characteristics have been verified by the [facility]. Results must be considered in the clinical context, and a negative result does not rule out infection. Interpretive Data last revised 2023 Testing performed by: [address] [address] Nasopharyngeal 07/01/2024 2: 02 PM CDT 07/01/2024 2:12 PM CDT Narrative [facility] - 07/01/2024 2:52 PM CDT Is the Patient experiencing symptoms consistent with COVID?->Yes Ilana Stevens MD LAB MICROBIOLOGY - GEN ERAL ORDERABLES Final Result Performing Organization Address City/[facility]/ZIP Co de Phone Number MARY JANE [address] [facility] Department [place] [address] * eGFR (07/01/2024 2:02 PM CDT) [facility] eGFR >90 >=60 mL/min/1. 73 m2 [...] was last reviewed 2021. Testing performed by: [address] [address] Blood 07/01/2024 2:02 PM CDT 07/01/2024 2:12 PM CDT us Ilana Stevens MD LAB BLOOD ORDERABLES F inal Result MARY JANE [address] [facility] Department [place] [address] * Differential, auto (07/01/2024 2:02 PM CDT) [facility] Neutrophil abs 5.3 1.5 - 6.5 K/cumm Comment:Testing performed by : [address] [address] Imm gran abs 0.0 0.0 - 0.1 K/cumm MARY JANE Comment:Testing performed by : [address] [address] Lymphocyte abs 2.6 0.8 - 3.3 K/cumm MARY JANE Comment:Testing performed by : [address] [address] Monocyte abs 0.8 0.2 - 0.8 K/cumm MARY JANE Comment:Testing performed by : [address] [address] Eosinophil abs 0.2 0.0 - 0.5 K/cumm MARY JANE Comment:Testing performed by : [address], [place]., [address] Basophil abs 0.0 0.0 - 0.1 K/cumm [facility] Comment:Testing performed by : [address] [address] Neutrophil pct 59.1 % [facility] Comment: Interpretive Data Percent cell count reference ranges are not reported, since discordance with absolute values may lead to misinterpretation of CBC data. Current Interpretive Data was last revised on 2017. Testing performed by: [address] [address] Imm gran pct 0.2 % [facility] Comment: Interpretive Data Percent cell count reference ranges are not reported, since discordance with absolute values may lead to misinterpretation of CBC data. Current Interpretive Data was last revised on 2017. Testing performed by: [address] [address] Lymphocyte pct 29.0 % [facility] Comment: Interpretive Data Percent cell count reference ranges are not reported, since discordance with absolute values may lead to misinterpretation of CBC data. Current Interpretive Data was last revised on 2017. Testing performed by: [address] [address] Monocyte pct 9.3 % [facility] Comment: Interpretive Data Percent cell count reference ranges are not reported, since discordance with absolute values may lead to misinterpretation of CBC data. Current Interpretive Data was last revised on 2017. Testing performed by: [address] [address] Eosinophil pct 2.2 % [facility] Comment: Interpretive Data Percent cell count reference ranges are not reported, since discordance with absolute values may lead to misinterpretation of CBC data. Current Interpretive Data was last revised on 2017. Testing performed by: [address] [address] Basophil pct 0.2 % MARY JANE PHAM Comment: Interpretive Data Percent cell count reference ranges are not reported, since discordance with absolute values may lead to misinterpretation of CBC data. Current Interpretive Data was last revised on 2017. Testing performed by: [facility], [address] [place] [address]., [address] Blood 07/01/2024 2:02 PM CDT 07/01/2024 2:12 PM CDT us Ilana Stevens MD LAB BLOOD ORDERABLES F inal Result MARY JANE PHAM [address] [facility] Department [place] [address] * Pro B-type natriuretic peptide [...] Revised Date: 2017. Testing performed by: [address] [address] Blood 07/01/2024 2:02 PM CDT 07/01/2024 2:12 PM CDT us Ilana Stevens MD LAB BLOOD ORDERABLES F inal Result [facility] Department [place] [address] * (ABNORMAL) CBC with auto differential (07/01/2024 2:02 PM CDT) [facility] WBC 9.0 3.8 - 9.9 K/cumm Comment:Testing performed by : [address] [address] Hgb 13.2 11.9 - 15.5 g/dL MARY JANE Comment:Testing performed by : [address] [address] Hct 41.1 35.6 - 45.5 % MARY JANE Comment:Testing performed by : [address] [address] Plt 277 150 - 400 K/cumm MARY JANE Comment:Testing performed by : [address] [address] MPV 9.5 9.1 - 12.3 fL MARY JANE Comment:Testing performed by : [address] [address] RBC 4.53 3.90 - 5.20 M/cumm MARY JANE PHAM Comment:Testing performed by : [address] [address] MCV 90.7 81.3 - 96.4 fL MARY JANE PHAM Comment:Testing performed by : [address] [address] MCH 29.1 27.1 - 33.3 pg MARY JANE PHAM Comment:Testing performed by : [address] [address] MCHC 32.1(L) 32.3 - 35.7 g/dL MARY JANE PHAM Comment:Testing performed by : [address] [address] RDW CV 13.2 11.1 - 14.9 % MARY JANE PHAM Comment:Testing performed by : [address] [address] RDW SD 44.2 35.7 - 48.1 fL MARY JANE PHAM Comment:Testing performed by : [address] [address] NRBC abs 0.00 0.00 - 0.01 K/cumm MARY JANE PHAM Comment:Testing performed by : [address] [address] Blood 07/01/2024 2:02 PM CDT 07/01/2024 2:12 PM CDT Ilana Stevens MD LAB BLOOD ORDERABLES F inal Result [facility] [address] [facility] Department of Laboratories [place], [place] [id number] * Comprehensive metabolic panel (07/01/2024 2:02 PM CDT) Sodium 137 135 - 145 mmol/L Comment:Testing performed by : [address] [address] Potassium, pl 4.2 3.3 - 4.9 mmol/L MARY JANE PHAM Comment:Testing performed by : [address] [address] Chloride 101 97 - 110 mmol/L MARY JANE PHAM Comment:Testing performed by : [address] [address] CO2 27 22 - 32 mmol/L MARY JANE PHAM Comment:Testing performed by : [address] [address] Anion gap 9 2 - 15 mmol/L MARY JANE PHAM Comment:Testing performed by : [address] [address] BUN 15 6 - 25 mg/dL MARY JANE Comment:Testing performed by : [address] [address] Creatinine 0.60 0.60 - 1.10 mg/dL MARY JANE Comment:Testing performed by : [address] [address] Glucose 166 70 - 199 mg/dL MARY [...] last revised 2022. Testing performed by: [address] [address] Calcium 9.8 8.5 - 10.3 mg/dL [facility] Comment:Testing performed by : [address] [address] Bilirubin, total 0.5 0.1 - 1.2 mg/dL [facility] Comment:Testing performed by : [address] [address] Protein, pl 8.0 6.5 - 8.5 g/dL MARY JANE Comment:Testing performed by : [address] [address] Albumin 3.8 3.5 - 5.0 g/dL [facility] Comment:Testing performed by : [address] [address] Alk phos 72 40 - 130 Units/L MARY JANE Comment:Testing performed by : [address] [address] ALT 19 7 - 45 Units/L MARY JANE Comment:Testing performed by : [address] [address] AST 23 10 - 45 Units/L MARY JANE PHAM Comment:Testing performed by : [facility], [address] [place] [address], [place]., [address] Blood 07/01/2024 2:02 PM CDT 07/01/2024 2:12 PM CDT Ilana Stevens MD LAB BLOOD ORDERABLES F inal Result Performing Organization Address City/[facility] Co de Phone Number MARY JANE [address] [facility] Department [place] [address] * POCT glucose (05/26/2024 4:27 PM RESIZER OPERATOR) Glucose, POC 137 70 - 199 mg/dL Blood 05/26/2024 4:27 PM RESIZER OPERATOR 05/26/2024 4:27 PM RESIZER OPERATOR Carlos Real MD LAB POCT ORDERABLES - DEVICE Fin al Result Performing Organization Address [facility] de Phone Number [facility] Department [place] [address] * POCT glucose (05/26/2024 11:38 AM RESIZER OPERATOR) Glucose, POC 146 70 - 199 mg/dL Blood 05/26/2024 11:3 8 AM RESIZER OPERATOR 05/26/2024 11:38 AM RESIZER OPERATOR Carlos Real MD LAB POCT ORDERABLES - DEVICE Fin al Result Performing Organization Address [facility] de Phone Number [facility] [place] [address] * POCT glucose (05/26/2024 8:12 AM RESIZER OPERATOR) Glucose, POC 134 70 - 199 mg/dL Blood 05/26/2024 8:12 AM RESIZER OPERATOR 05/26/2024 8:12 AM RESIZER OPERATOR Carlos Real MD LAB POCT ORDERABLES - DEVICE Fin al Result Performing Organization Address [facility] Co de Phone Number MARY JANE [facility] Department [place] [address] * eGFR (05/26/2024 12:05 AM RESIZER OPERATOR) eGFR >90 >=60 mL/min/1. 73 m2 Comment: [...] reviewed 2021. Blood 05/26/2024 12:0 5 AM RESIZER OPERATOR 05/26/2024 12:23 AM RESIZER OPERATOR Carlos Real MD LAB BLOOD ORDERABLES Final Resul t Performing Organization Address City/[facility] Co de Phone Number [facility]ANE [facility] [place] [address] * (ABNORMAL) Differential, auto (05/26/2024 12:05 AM RESIZER OPERATOR) Neutrophil abs 6.4 1.5 - 6.5 K/cumm Imm gran abs 0.0 0.0 - 0.1 K/cumm [facility] Lymphocyte abs 2.9 0.8 - 3.3 K/cumm [facility] Monocyte abs 0.9(H) 0.2 - 0.8 K/cumm [facility] Eosinophil abs 0.3 0.0 - 0.5 K/cumm [facility] Basophil abs 0.0 0.0 - 0.1 K/cumm [facility] Neutrophil pct 60.4 % [facility] Comment: Interpretive Data [...] revised on 2017. Lymphocyte pct 27.5 % [facility] Comment: Interpretive Data Percent cell count reference ranges are not reported, since discordance with absolute values may lead to misinterpretation of CBC data. Current Interpretive Data was last revised on 2017. Monocyte pct 8.2 % [facility] Comment: Interpretive Data Percent cell count reference ranges are not reported, since discordance with absolute values may lead to misinterpretation of CBC data. Current Interpretive Data was last revised on 2017. Eosinophil pct 3.1 % [facility] Comment: Interpretive Data Percent cell count reference ranges are not reported, since discordance with absolute values may lead to misinterpretation of CBC data. Current Interpretive Data was last revised on 2017. Basophil pct 0.4 % [facility] Comment: Interpretive Data Percent cell count reference ranges are not reported, since discordance with absolute values may lead to misinterpretation of CBC data. Current Interpretive Data was last revised on 2017. Blood 05/26/2024 12:0 5 AM RESIZER OPERATOR 05/26/2024 12:07 AM RESIZER OPERATOR us Carlos Real MD LAB BLOOD ORDERABLES Final Resul t [facility] Department [place] [address] * (ABNORMAL) CBC with auto differential (05/26/2024 12:05 AM RESIZER OPERATOR) [facility] WBC 10.6(H) 3.8 - 9.9 K/cumm Hgb 12.5 11.9 - 15.5 g/dL [facility] Hct 39.2 35.6 - 45.5 % [facility] Plt 248 150 - 400 K/cumm [facility] MPV 9.7 9.1 - 12.3 fL [facility] RBC 4.32 3.90 - 5.20 M/cumm [facility] MCV 90.7 81.3 - 96.4 fL [facility] MCH 28.9 27.1 - 33.3 pg [facility] MCHC 31.9(L) 32.3 - 35.7 g/dL [facility] RDW CV 13.5 11.1 - 14.9 % [facility] RDW SD 45.1 35.7 - 48.1 fL [facility] NRBC abs 0.00 0.00 - 0.01 K/cumm [facility] Blood 05/26/2024 12:0 5 AM RESIZER OPERATOR 05/26/2024 12:07 AM RESIZER OPERATOR Carlos Real MD LAB BLOOD ORDERABLES Final Resul t Performing Organization Address City/[facility] Co de Phone Number [facility] Department [place] [employer] [place] [address] * Phosphorus (05/26/2024 12:05 AM RESIZER OPERATOR) [facility] Phosphorus, pl 3.2 2.3 - 4.5 mg/dL Blood 05/26/2024 12:0 5 AM RESIZER OPERATOR 05/26/2024 12:08 AM RESIZER OPERATOR Carlos Real MD LAB BLOOD ORDERABLES Final Resul t [facility] [place] [address] * Magnesium (05/26/2024 12:05 AM RESIZER OPERATOR) [facility] Magnesium 1.8 1.4 - 2.5 mg/dL Blood 05/26/2024 12:0 5 AM RESIZER OPERATOR 05/26/2024 12:08 AM RESIZER OPERATOR us Carlos Real MD LAB BLOOD ORDERABLES Final Resul t [facility] Department [place] [address] * (ABNORMAL) Comprehensive metabolic panel (05/26/2024 12:05 AM RESIZER OPERATOR) Sodium 136 135 - 145 mmol/L Potassium, pl 4.2 3.3 - 4.9 mmol/L [facility] Chloride 101 97 - 110 mmol/L [facility] CO2 29 22 - 32 mmol/L [facility] Anion gap 6 2 - 15 mmol/L [facility] BUN 19 6 - 25 mg/dL [facility] Creatinine 0.67 0.60 - 1.10 mg/dL [facility] Glucose 164 70 - 199 mg/dL [facility] [...] Calcium 9.4 8.5 - 10.3 mg/dL CERN[facility] Bilirubin, total 0.4 0.1 - 1.2 mg/dL [facility] Protein, pl 7.1 6.5 - 8.5 g/dL [facility] Albumin 3.3(L) 3.5 - 5.0 g/dL [facility] Alk phos 65 40 - 130 Units/L CERNER [facility] ALT 17 7 - 45 Units/L CERNER [facility] AST 19 10 - 45 Units/L [facility] Blood 05/26/2024 12:0 5 AM RESIZER OPERATOR 05/26/2024 12:08 AM RESIZER OPERATOR Carlos Real MD LAB BLOOD ORDERABLES Final Resul t Performing Organization Address [facility] de Phone Number [facility] [place] [address] * POCT glucose (05/25/2024 7:44 PM RESIZER OPERATOR) Glucose, POC 160 70 - 199 mg/dL Blood 05/25/2024 7:44 PM RESIZER OPERATOR 05/25/2024 7:44 PM RESIZER OPERATOR Carlos Real MD LAB POCT ORDERABLES - DEVICE Fin al Result Performing Organization Address [facility] Phone Number [facility] Department [place] [address] * POCT glucose (05/25/2024 5:24 PM RESIZER OPERATOR) Glucose, POC 152 70 - 199 mg/dL Blood 05/25/2024 5:24 PM RESIZER OPERATOR 05/25/2024 5:24 PM RESIZER OPERATOR Carlos Real MD LAB POCT ORDERABLES - DEVICE Fin al Result Performing Organization Address [facility] de Phone Number [facility] Department [place] [address] * POCT glucose (05/25/2024 11:37 AM RESIZER OPERATOR) Glucose, POC 143 70 - 199 mg/dL Blood 05/25/2024 11:3 7 AM RESIZER OPERATOR 05/25/2024 11:37 AM RESIZER OPERATOR Carlos Real MD LAB POCT ORDERABLES - DEVICE Fin al Result Performing Organization Address [facility] de Phone Number CERNER [facility] [place] [address] * POCT glucose (05/25/2024 7:27 AM RESIZER OPERATOR) Glucose, POC 134 70 - 199 mg/dL Blood 05/25/2024 7:27 AM RESIZER OPERATOR 05/25/2024 7:27 AM RESIZER OPERATOR us Carlos Real MD LAB POCT ORDERABLES - [place] [address] * eGFR (05/25/2024 12:20 AM RESIZER OPERATOR) Pathologist [facility] eGFR >90 >=60 mL/min/1. 73 m2 Comment: [...] reviewed 2021. Blood 05/25/2024 12:2 0 AM RESIZER OPERATOR 05/25/2024 12:43 AM RESIZER OPERATOR us Naila Guzman NP LAB BLOOD ORDERABLES Final Result [facility] [place] [address] * Differential, auto (05/25/2024 12:20 AM RESIZER OPERATOR) Neutrophil abs 5.9 1.5 - 6.5 K/cumm Imm gran abs 0.0 0.0 - 0.1 K/cumm [facility] Lymphocyte abs 2.4 0.8 - 3.3 K/cumm [facility] Monocyte abs 0.8 0.2 - 0.8 K/cumm [facility] Eosinophil abs 0.3 0.0 - 0.5 K/cumm [facility] Basophil abs 0.0 0.0 - 0.1 K/cumm [facility] Neutrophil pct 62.6 % [facility] Comment: Interpretive Data Percent cell count reference ranges are not reported, since discordance with absolute values may lead to misinterpretation of CBC data. Current Interpretive Data was last revised on 2017. Imm gran pct 0.3 % [facility] Comment: Interpretive Data Percent cell count reference ranges are not reported, since discordance with absolute values may lead to misinterpretation of CBC data. Current Interpretive Data was last revised on 2017. Lymphocyte pct 24.8 % [facility] Comment: Interpretive Data Percent cell count reference ranges are not reported, since discordance with absolute values may lead to misinterpretation of CBC data. Current Interpretive Data was last revised on 2017. Monocyte pct 8.8 % [facility] Comment: Interpretive Data Percent cell count reference ranges are not reported, since discordance with absolute values may lead to misinterpretation of CBC data. Current Interpretive Data was last revised on 2017. Eosinophil pct 3.2 % [facility] Comment: Interpretive Data [...] on 2017. Blood 05/25/2024 12:2 0 AM RESIZER OPERATOR 05/25/2024 12:29 AM RESIZER OPERATOR Naila Guzman COAL WASHER LAB BLOOD ORDERABLES Final Result [facility] Department [place] [address] * (ABNORMAL) CBC with auto differential (05/25/2024 12:20 AM RESIZER OPERATOR) Pathologist [facility] WBC 9.5 3.8 - 9.9 K/cumm Hgb 12.8 11.9 - 15.5 g/dL [facility] Hct 40.0 35.6 - 45.5 % [facility] Plt 246 150 - 400 K/cumm [facility] MPV 9.8 9.1 - 12.3 fL [facility] RBC 4.42 3.90 - 5.20 M/cumm [facility] MCV 90.5 81.3 - 96.4 fL [facility] MCH 29.0 27.1 - 33.3 pg [facility] MCHC 32.0(L) 32.3 - 35.7 g/dL [facility] RDW CV 13.5 11.1 - 14.9 % [facility] RDW SD 45.3 35.7 - 48.1 fL [facility] NRBC abs 0.00 0.00 - 0.01 K/cumm [facility] Blood 05/25/2024 12:2 0 AM RESIZER OPERATOR 05/25/2024 12:29 AM RESIZER OPERATOR Naila Guzman NP LAB BLOOD ORDERABLES Final Result [facility] [place] [address] * Phosphorus (05/25/2024 12:20 AM RESIZER OPERATOR) Pathologist [facility] Phosphorus, pl 3.1 2.3 - 4.5 mg/dL Blood 05/25/2024 12:2 0 AM RESIZER OPERATOR 05/25/2024 12:29 AM RESIZER OPERATOR Naila Guzman COAL WASHER LAB BLOOD ORDERABLES Final Result [facility] [place] [address] * Magnesium (05/25/2024 12:20 AM RESIZER OPERATOR) [facility] Magnesium 1.9 1.4 - 2.5 mg/dL Blood 05/25/2024 12:2 0 AM RESIZER OPERATOR 05/25/2024 12:29 AM RESIZER OPERATOR Naila Heather Guzman COAL WASHER LAB BLOOD ORDERABLES Final Result Performing Organization Address [facility] de Phone Number [facility] [place] [address] * (ABNORMAL) Comprehensive metabolic panel (05/25/2024 12:20 AM RESIZER OPERATOR) [facility] Sodium 138 135 - 145 mmol/L Potassium, pl 4.4 3.3 - 4.9 mmol/L [facility] Chloride 101 97 - 110 mmol/L [facility] CO2 29 22 - 32 mmol/L [facility] Anion gap 8 2 - 15 mmol/L [facility] BUN 20 6 - 25 mg/dL [facility] Creatinine 0.69 0.60 - 1.10 mg/dL [facility] Glucose 156 70 - 199 mg/dL [facility] [...] 2022. Calcium 9.4 8.5 - 10.3 mg/dL [facility] Bilirubin, total 0.5 0.1 - 1.2 mg/dL [facility] Protein, pl 7.4 6.5 - 8.5 g/dL [facility] Albumin 3.4(L) 3.5 - 5.0 g/dL [facility] Alk phos 67 40 - 130 Units/L [facility] ALT 18 7 - 45 Units/L [facility] AST 16 10 - 45 Units/L [facility] Blood 05/25/2024 12:2 0 AM RESIZER OPERATOR 05/25/2024 12:29 AM RESIZER OPERATOR Naila Guzman COAL WASHER LAB BLOOD ORDERABLES Final Result Performing Organization Address [facility] Co de Phone Number [facility] [place] [employer] [place] [address] * POCT glucose (05/24/2024 8:13 PM RESIZER OPERATOR) Glucose, POC 171 70 - 199 mg/dL Blood 05/24/2024 8:13 PM RESIZER OPERATOR 05/24/2024 8:13 PM RESIZER OPERATOR Result [facility] Carlos Real MD LAB POCT ORDERABLES - DEVICE Fin al Result Performing Organization Address [facility] Co de Phone Number [facility] [place] [place] [address] * POCT glucose (05/24/2024 5:17 PM RESIZER OPERATOR) Glucose, POC 133 70 - 199 mg/dL Blood 05/24/2024 5:17 PM RESIZER OPERATOR 05/24/2024 5:17 PM RESIZER OPERATOR Carlos Real MD LAB POCT ORDERABLES - DEVICE Fin al Result Performing Organization Address [facility] Co de Phone Number [facility] [place] [place] [address] * POCT glucose (05/24/2024 12:49 PM RESIZER OPERATOR) Glucose, POC 180 70 - 199 mg/dL Blood 05/24/2024 12:4 9 PM RESIZER OPERATOR 05/24/2024 12:49 PM RESIZER OPERATOR Result [facility] Carlos Real MD LAB POCT ORDERABLES - DEVICE Fin al Result Performing Organization Address [facility] de Phone Number [facility] Department [place] [address] * POCT glucose (05/24/2024 9:22 AM RESIZER OPERATOR) Glucose, POC 139 70 - 199 mg/dL Blood 05/24/2024 9:22 AM RESIZER OPERATOR 05/24/2024 9:22 AM RESIZER OPERATOR Result [facility] Carlos Real MD LAB POCT ORDERABLES - DEVICE Fin al Result Performing Organization Address [facility] de Phone Number [facility] Department [place] [address] * Herpes Simplex Virus (HSV) PCR Oral (05/24/2024 8:47 AM RESIZER OPERATOR) [facility] HSV DNA Not Detected Not Detected [facility] Comment: Interpretive Data This assay is [...] reviewed on 08/21/2018 Oral 05/24/2024 8:47 AM RESIZER OPERATOR 05/24/2024 9:24 AM RESIZER OPERATOR Narrative MARY JANE [facility] - 05/24/2024 4:28 PM RESIZER OPERATOR Oral ulcer swab Result [facility] Naila Guzman NP LAB MICROBIOLOGY - GENERAL ORDERABLES Final Result Performing Organization Address City/[facility]/ZIP Co de Phone Number [facility] [place] [address] [facility] * POCT glucose (05/24/2024 8:22 AM RESIZER OPERATOR) Glucose, POC 132 70 - 199 mg/dL Blood 05/24/2024 8:22 AM RESIZER OPERATOR 05/24/2024 8:22 AM RESIZER OPERATOR Carlos Real MD LAB POCT ORDERABLES - DEVICE Fin al Result Performing Organization Address [facility] de Phone Number [facility] Department [place] [address] * eGFR (05/24/2024 12:29 AM RESIZER OPERATOR) eGFR 87 >=60 mL/min/1. 73 m2 Comment: [...] reviewed 2021. Blood 05/24/2024 12:2 9 AM RESIZER OPERATOR 05/24/2024 12:54 AM RESIZER OPERATOR Naila Guzman NP LAB BLOOD ORDERABLES Final Result MARY JANE [facility] [place] [address] * (ABNORMAL) Differential, auto (05/24/2024 12:29 AM RESIZER OPERATOR) Neutrophil abs 5.3 1.5 - 6.5 K/cumm Imm gran abs 0.0 0.0 - 0.1 K/cumm [facility] Lymphocyte abs 3.0 0.8 - 3.3 K/cumm [facility] Monocyte abs 0.9(H) 0.2 - 0.8 K/cumm [facility] Eosinophil abs 0.3 0.0 - 0.5 K/cumm [facility] Basophil abs 0.0 0.0 - 0.1 K/cumm [facility] Neutrophil pct 55.8 % [facility] Comment: Interpretive Data [...] revised on 2017. Lymphocyte pct 31.4 % [facility] Comment: Interpretive Data Percent cell count reference ranges are not reported, since discordance with absolute values may lead to misinterpretation of CBC data. Current Interpretive Data was last revised on 2017. Monocyte pct 9.0 % [facility] Comment: Interpretive Data Percent cell count reference ranges are not reported, since discordance with absolute values may lead to misinterpretation of CBC data. Current Interpretive Data was last revised on 2017. Eosinophil pct 3.0 % [facility] Comment: Interpretive Data Percent cell count reference ranges are not reported, since discordance with absolute values may lead to misinterpretation of CBC data. Current Interpretive Data was last revised on 2017. Basophil pct 0.4 % [facility] Comment: Interpretive Data Percent cell count reference ranges are not reported, since discordance with absolute values may lead to misinterpretation of CBC data. Current Interpretive Data was last revised on 2017. Blood 05/24/2024 12:2 9 AM RESIZER OPERATOR 05/24/2024 12:54 AM RESIZER OPERATOR Naila Guzman NP LAB BLOOD ORDERABLES Final Result Performing Organization Address City/[facility] Co de Phone Number [facility] [place] [place] [address] * CBC with auto differential (05/24/2024 12:29 AM RESIZER OPERATOR) WBC 9.5 3.8 - 9.9 K/cumm Hgb 12.6 11.9 - 15.5 g/dL [facility] Hct 39.0 35.6 - 45.5 % [facility] Plt 223 150 - 400 K/cumm [facility] MPV 9.6 9.1 - 12.3 fL [facility] RBC 4.23 3.90 - 5.20 M/cumm [facility] MCV 92.2 81.3 - 96.4 fL [facility] MCH 29.8 27.1 - 33.3 pg [facility] MCHC 32.3 32.3 - 35.7 g/dL [facility] RDW CV 13.7 11.1 - 14.9 % [facility] RDW SD 46.5 35.7 - 48.1 fL [facility] NRBC abs 0.00 0.00 - 0.01 K/cumm [facility] Blood 05/24/2024 12:2 9 AM RESIZER OPERATOR 05/24/2024 12:54 AM RESIZER OPERATOR Naila Guzman NP LAB BLOOD ORDERABLES Final Result Performing Organization Address [facility]/ZIP Co de Phone Number [facility] [place] [place] [address] * Phosphorus (05/24/2024 12:29 AM RESIZER OPERATOR) Phosphorus, pl 3.6 2.3 - 4.5 mg/dL Blood 05/24/2024 12:2 9 AM RESIZER OPERATOR 05/24/2024 12:54 AM RESIZER OPERATOR Naila Guzman COAL WASHER LAB BLOOD ORDERABLES Final Result Performing Organization Address City/[facility] Co de Phone Number [facility] [place] [address] * Magnesium (05/24/2024 12:29 AM RESIZER OPERATOR) Pathologist [facility] Magnesium 1.9 1.4 - 2.5 mg/dL Blood 05/24/2024 12:2 9 AM RESIZER OPERATOR 05/24/2024 12:54 AM RESIZER OPERATOR Naila Guzman COAL WASHER LAB BLOOD ORDERABLES Final Result Performing Organization Address [facility] de Phone Number [facility] [place] [address] * (ABNORMAL) Comprehensive metabolic panel (05/24/2024 12:29 AM RESIZER OPERATOR) [facility] Sodium 139 135 - 145 mmol/L Potassium, pl 4.3 3.3 - 4.9 mmol/L [facility] Chloride 103 97 - 110 mmol/L [facility] CO2 29 22 - 32 mmol/L [facility] Anion gap 7 2 - 15 mmol/L [facility] BUN 19 6 - 25 mg/dL [facility] Creatinine 0.75 0.60 - 1.10 mg/dL [facility] Glucose 157 70 - 199 mg/dL [facility] [...] 2022. Calcium 9.2 8.5 - 10.3 mg/dL [facility] Bilirubin, total 0.4 0.1 - 1.2 mg/dL [facility] Protein, pl 7.1 6.5 - 8.5 g/dL [facility] Albumin 3.3(L) 3.5 - 5.0 g/dL [facility] Alk phos 65 40 - 130 Units/L [facility] ALT 18 7 - 45 Units/L [facility] AST 17 10 - 45 Units/L [facility] Blood 05/24/2024 12:2 9 AM RESIZER OPERATOR 05/24/2024 12:54 AM RESIZER OPERATOR Naila Guzman COAL WASHER LAB BLOOD ORDERABLES Final Result Performing Organization Address [facility] de Phone Number [facility] Department [place] [address] * POCT glucose (05/23/2024 8:16 PM RESIZER OPERATOR) Glucose, POC 145 70 - 199 mg/dL Blood 05/23/2024 8:16 PM RESIZER OPERATOR 05/23/2024 8:16 PM RESIZER OPERATOR Carlos Real MD LAB POCT ORDERABLES - DEVICE Fin al Result Performing Organization Address [facility] de Phone Number [facility] [place] [address] * POCT glucose (05/23/2024 6:14 PM RESIZER OPERATOR) Glucose, POC 181 70 - 199 mg/dL Blood 05/23/2024 6:14 PM RESIZER OPERATOR 05/23/2024 6:14 PM RESIZER OPERATOR Carlos Real MD LAB POCT ORDERABLES - DEVICE Fin al Result Performing Organization Address [facility] de Phone Number [facility] Department [place] [address] * POCT glucose (05/23/2024 12:17 PM RESIZER OPERATOR) Glucose, POC 159 70 - 199 mg/dL Blood 05/23/2024 12:1 7 PM RESIZER OPERATOR 05/23/2024 12:17 PM RESIZER OPERATOR us Cem Knapp MD LAB POCT ORDERABLES - DEVIC E Final Result MARY JANE ANGELES [facility] Department [place] [address] * US Vein Duplex Lower Extremity Bilateral Complete (05/23/2024 11:45 AM RESIZER OPERATOR) LV EF % CONS SCIMAGE Anatomical Region Laterality Modality Vascular Bilateral Ultrasound 05/23/2024 11:1 2 AM RESIZER OPERATOR Narrative 05/23/2024 9:43 PM RESIZER OPERATOR [facility] - Department of Vascular Surgery, Vascular Laboratory [address] [place] [id number] Lower Extremity Venous Ultrasound Report Patient Name: MOHSEN MARQUES M : 1955 (68y 11m) Study Date: 05/23/2024 11:12:03 AM Gender: F Tech: VELVET Location: [id number] Ref Provider: CARLOS REAL Quality: Adequate Order Provider: CARLOS REAL PROCEDURES: Vascular Report: Venous Duplex imaging was performed bilaterally in the lower extremities. The common femoral, femoral, popliteal, posterior tibial, peroneal veins were evaluated for patency, spontaneity and phasicity with Doppler, compression and augmentation maneuvers. Great saphenous vein proximal at the junction was evaluated with compression maneuvers. INDICATIONS: Localized edema. FINDINGS: Performing Fish Egg Packer: Marlys Castillo RVT. Bilateral: Venous Doppler signals [...] Vu Obregon MD FACS 05/23/2024 9:42:19 PM RESIZER OPERATOR Procedure Note Vu Obregon MD - 05/23/2024 [employer] - Department of Vascular Surgery,Vascular Laboratory [address] [place] [id number] Lower Extremity Venous Ultrasound Report Patient Name: MOHSEN MARQUES M : 1955 (68y 11m) Study Date: 05/23/2024 11:12:03 AM Gender: F Tech: VELVET Location: [id number] Ref Provider: CARLOS REAL Quality: Adequate Order Provider: CARLOS REAL PROCEDURES: Vascular Report: Venous Duplex imaging was performed bilaterally in the lower extremities.The common femoral, femoral, popliteal, posterior tibial, peroneal veins wereevaluated for patency, spontaneity and phasicity with Doppler, compression and augmentationmaneuvers. Great saphenous vein proximal at the junction was evaluated with compressionmaneuvers. INDICATIONS: Localized edema. FINDINGS: Performing Fish Egg Packer: Marlys Castillo RVT. Bilateral: Venous Doppler signals [...] Vu Obregon MD FACS 05/23/2024 9:42:19 PM RESIZER OPERATOR Carlos Real MD IMG US PROCEDURES Final Result * (ABNORMAL) POCT glucose (05/23/2024 8:16 AM RESIZER OPERATOR) Glucose, POC 204(H) 70 - 199 mg/dL Blood 05/23/2024 8:16 AM RESIZER OPERATOR 05/23/2024 8:16 AM RESIZER OPERATOR us Cem Knapp MD LAB POCT ORDERABLES - DEVIC E Final Result [facility] Department [place] [address] * (ABNORMAL) Differential, auto (05/23/2024 2:30 AM RESIZER OPERATOR) Pathologist [facility] Neutrophil abs 8.0(H) 1.5 - 6.5 K/cumm Imm gran abs 0.1 0.0 - 0.1 K/cumm [facility] Lymphocyte abs 2.6 0.8 - 3.3 K/cumm [facility] Monocyte abs 1.0(H) 0.2 - 0.8 K/cumm [facility] Eosinophil abs 0.3 0.0 - 0.5 K/cumm [facility] Basophil abs 0.0 0.0 - 0.1 K/cumm [facility] Neutrophil pct 66.5 % [facility] Comment: Interpretive Data Percent cell count reference ranges are not reported, since discordance with absolute values may lead to misinterpretation of CBC data. Current Interpretive Data was last revised on 2017. Imm gran pct 0.5 % [facility] Comment: Interpretive Data Percent cell count reference ranges are not reported, since discordance with absolute values may lead to misinterpretation of CBC data. Current Interpretive Data was last revised on 2017. Lymphocyte pct 21.9 % [facility] Comment: Interpretive Data Percent cell count reference ranges are not reported, since discordance with absolute values may lead to misinterpretation of CBC data. Current Interpretive Data was last revised on 2017. Monocyte pct 8.5 % [facility] Comment: Interpretive Data Percent cell count reference ranges are not reported, since discordance with absolute values may lead to misinterpretation of CBC data. Current Interpretive Data was last revised on 2017. Eosinophil pct 2.3 % [facility] Comment: Interpretive Data [...] revised on 2017. Blood 05/23/2024 2:30 AM RESIZER OPERATOR 05/23/2024 1:03 AM RESIZER OPERATOR us Naila Guzman COAL WASHER LAB BLOOD ORDERABLES Final Result [facility] Department [place] [address] * (ABNORMAL) CBC with auto differential (05/23/2024 2:30 AM RESIZER OPERATOR) WBC 11.9(H) 3.8 - 9.9 K/cumm Hgb 12.8 11.9 - 15.5 g/dL [facility] Hct 39.6 35.6 - 45.5 % [facility] Plt 254 150 - 400 K/cumm [facility] MPV 9.7 9.1 - 12.3 fL [facility] RBC 4.43 3.90 - 5.20 M/cumm [facility] MCV 89.4 81.3 - 96.4 fL [facility] MCH 28.9 27.1 - 33.3 pg [facility] MCHC 32.3 32.3 - 35.7 g/dL [facility] RDW CV 13.7 11.1 - 14.9 % [facility] RDW SD 44.6 35.7 - 48.1 fL [facility] NRBC abs 0.00 0.00 - 0.01 K/cumm [facility] Blood 05/23/2024 2:30 AM RESIZER OPERATOR 05/23/2024 1:03 AM RESIZER OPERATOR Naila Guzman NP LAB BLOOD ORDERABLES Final Result Performing Organization Address [facility]/ZIP Co de Phone Number [facility] [place] [address] * eGFR (05/23/2024 12:42 AM RESIZER OPERATOR) eGFR 84 >=60 mL/min/1. 73 m2 Comment: [...] reviewed 2021. Blood 05/23/2024 12:4 2 AM RESIZER OPERATOR 05/23/2024 1:02 AM RESIZER OPERATOR Naila Guzman NP LAB BLOOD ORDERABLES Final Result Performing Organization Address [facility]/ZIP Co de Phone Number [facility] [place] [address] * Type and screen (05/23/2024 12:42 AM RESIZER OPERATOR) ABO Rh O Positive Dilcia, indirect Negative [facility] Blood 05/23/2024 12:4 2 AM RESIZER OPERATOR 05/23/2024 12:52 AM RESIZER OPERATOR Narrative [facility] - 05/23/2024 1:53 AM RESIZER OPERATOR Has the patient had Daratumumab or Isatuximab in the past 6 months?->Unknown Naila Guzman NP LAB BLOOD BANK TEST ORDERA BLES Final Result Performing Organization Address City/[facility]/ZIP Co de Phone Number [facility] [place] [place] [address] * Uric acid (05/23/2024 12:42 AM RESIZER OPERATOR) Uric acid 5.5 2.5 - 7.0 mg/dL Blood 05/23/2024 12:4 2 AM RESIZER OPERATOR 05/23/2024 1:02 AM RESIZER OPERATOR Narrative [facility] - 05/23/2024 1:34 AM RESIZER OPERATOR Monday and only. Morning draw. . Naila Guzman NP LAB BLOOD ORDERABLES Final Result Performing Organization Address [facility] [place] [address] * Phosphorus (05/23/2024 12:42 AM RESIZER OPERATOR) Phosphorus, pl 4.4 2.3 - 4.5 mg/dL Blood 05/23/2024 12:4 2 AM RESIZER OPERATOR 05/23/2024 1:02 AM RESIZER OPERATOR Naila Guzman NP LAB BLOOD ORDERABLES Final Result Performing Organization Address [facility] [place] [address] * Magnesium (05/23/2024 12:42 AM RESIZER OPERATOR) Magnesium 1.9 1.4 - 2.5 mg/dL Blood 05/23/2024 12:4 2 AM RESIZER OPERATOR 05/23/2024 1:02 AM RESIZER OPERATOR Naila Guzman NP LAB BLOOD ORDERABLES Final Result Performing Organization Address [facility] de Phone Number [facility] Department [place] [address] * Lactate dehydrogenase (LD) (05/23/2024 12:42 AM RESIZER OPERATOR) [facility] Lactate dehydrogenase (LDH) 247 100 - 250 Units/L Blood 05/23/2024 12:4 2 AM RESIZER OPERATOR 05/23/2024 1:02 AM RESIZER OPERATOR Narrative [facility] - 05/23/2024 1:34 AM RESIZER OPERATOR Monday and only. Morning draw. Naila Guzman NP LAB BLOOD ORDERABLES Final Result Performing Organization Address [facility] de Phone Number [facility] [place] [address] * Comprehensive metabolic panel (05/23/2024 12:42 AM RESIZER OPERATOR) [facility] Sodium 136 135 - 145 mmol/L Potassium, pl 4.3 3.3 - 4.9 mmol/L [facility] Chloride 101 97 - 110 mmol/L [facility] CO2 29 22 - 32 mmol/L [facility] Anion gap 6 2 - 15 mmol/L [facility] BUN 18 6 - 25 mg/dL [facility] Creatinine 0.77 0.60 - 1.10 mg/dL [facility] Glucose 194 70 - 199 mg/dL [facility] Calcium 9.5 8.5 - 10.3 mg/dL [facility] Bilirubin, total 0.5 0.1 - 1.2 mg/dL [facility] Protein, pl 7.4 6.5 - 8.5 g/dL [facility] Albumin 3.5 3.5 - 5.0 g/dL [facility] Alk phos 71 40 - 130 Units/L [facility] ALT 19 7 - 45 Units/L [facility] AST 22 10 - 45 Units/L [facility] Blood 05/23/2024 12:4 2 AM RESIZER OPERATOR 05/23/2024 1:02 AM RESIZER OPERATOR us Naila Guzman NP LAB BLOOD ORDERABLES Final Result Performing Organization Address [facility] Co de Phone Number [facility] Department [place] [address] * (ABNORMAL) POCT glucose (05/22/2024 8:56 PM RESIZER OPERATOR) Glucose, POC 210(H) 70 - 199 mg/dL Blood 05/22/2024 8:56 PM RESIZER OPERATOR 05/22/2024 8:56 PM RESIZER OPERATOR us Cem Knapp MD LAB POCT ORDERABLES - DEVIC E Final Result [facility] Department [place] [address] * POCT glucose (05/22/2024 6:09 PM RESIZER OPERATOR) Glucose, POC 142 70 - 199 mg/dL Blood 05/22/2024 6:09 PM RESIZER OPERATOR 05/22/2024 6:09 PM RESIZER OPERATOR us Leo Henry MD LAB POCT ORDERABLES - NILESH CE Final Result MARY JANE ANGELES [facility] [place] [address] * POCT glucose (05/22/2024 4:26 PM RESIZER OPERATOR) Glucose, POC 133 70 - 199 mg/dL Blood 05/22/2024 4:26 PM RESIZER OPERATOR 05/22/2024 4:26 PM RESIZER OPERATOR us Leo Henry MD LAB POCT ORDERABLES - NILESH CE Final Result Performing Organization Address [facility] Co de Phone Number MARY JANE ANGELES [facility] [place] [address] * CT Abdomen Pelvis W Contrast (05/22/2024 2:32 PM RESIZER OPERATOR) Anatomical Region Laterality Modality Body N/A Computed Tomogra phy 05/22/2024 4:35 PM RESIZER OPERATOR Impressions 05/22/2024 5:16 PM RESIZER OPERATOR No acute findings within the abdomen or pelvis. Dictated by: Yesi Mendes M.D. The radiology attending physician has personally reviewed this study, and had reviewed and/or edited this written report and agrees with it. Electronically signed by: Kelli Palmer M.D. Narrative 05/22/2024 5:16 PM RESIZER OPERATOR EXAMINATION: Computed tomography of the abdomen and [...] sult * POCT glucose (05/22/2024 12:58 PM RESIZER OPERATOR) Glucose, POC 177 70 - 199 mg/dL Blood 05/22/2024 12:5 8 PM RESIZER OPERATOR 05/22/2024 12:58 PM RESIZER OPERATOR Leo Henry MD LAB POCT ORDERABLES - NILESH CE Final Result Performing Organization Address City/[facility] Co de Phone Number [facility] Department [place] [place] [address] * (ABNORMAL) POCT glucose (05/22/2024 9:29 AM RESIZER OPERATOR) Glucose, POC 291(H) 70 - 199 mg/dL Blood 05/22/2024 9:29 AM RESIZER OPERATOR 05/22/2024 9:29 AM RESIZER OPERATOR Leo Henry MD LAB POCT ORDERABLES - NILESH CE Final Result Performing Organization Address [facility] Co de Phone Number [facility] [place] [address] * POCT glucose (05/22/2024 6:54 AM RESIZER OPERATOR) Glucose, POC 142 70 - 199 mg/dL Blood 05/22/2024 6:54 AM RESIZER OPERATOR 05/22/2024 6:54 AM RESIZER OPERATOR us Jimmie Zavala MD LAB POCT ORDERABLES - DEVICE Fin al Result [facility] JANE [facility] [place] [address] * CT Chest PE (CTA) W Contrast (05/22/2024 1:31 AM RESIZER OPERATOR) Anatomical Region Laterality Modality Body N/A Computed Tomogra phy 05/22/2024 2:38 AM RESIZER OPERATOR Impressions 05/22/2024 9:12 AM RESIZER OPERATOR No pulmonary embolism. Dictated by: Miguel Milligan MD The radiology attending physician has personally reviewed this study, and had reviewed and/or edited this written report and agrees with it. Electronically signed by: Jayson Rockwell M.D. Narrative 05/22/2024 9:12 AM RESIZER OPERATOR EXAMINATION: CT CHEST PE (CTA) W CONTRAST [...] Result * D-dimer, quantitative (05/22/2024 12:24 AM RESIZER OPERATOR) D-Dimer 414 <=499 ng/mL FEU Comment: Interpretive [...] 68, VTE cut-off 680 ng/ml FEU. References; Schtan HT et al. Brit Med J. 2013;346:f2492. Pooja HERNANDES et al. Annals Int Med. 2015;163:701-11. Current interpretive data was last revised on 2019. Blood 05/22/2024 12:2 4 AM RESIZER OPERATOR 05/22/2024 12:42 AM RESIZER OPERATOR Angeline Soler MD LAB BLOOD ORDERABLES F inal Result Performing Organization Address [facility] Co de Phone Number [facility] Department [place] [place] [address] * Troponin I high-sensitivity 2-hour (05/21/2024 11:09 PM RESIZER OPERATOR) Trop I hs 5 <=17 ng/L Comment: Interpretive Data For further hscTnI resources including the diagnostic algorithm and an aid in interpretation, copy and paste this link: https://bjhlab.testcatalog.org/show/hsTrop-1 Current Interpretive Data last revised 2019. Trop I hs delta See Comment ng/L [facility] Comment:Inappropriate collec tion time to report a delta. Trop I hs pct delta See Comment % [facility] Comment:Inappropriate collec tion time to report a delta. Trop I hs interp See Comment [facility] Comment:Inappropriate collec tion time to report a delta. Blood 05/21/2024 11:0 9 PM RESIZER OPERATOR 05/21/2024 11:26 PM RESIZER OPERATOR us Cira Castro MD LAB BLOOD ORDERABL ES Final Result Performing Organization Address [facility] Co de Phone Number [facility] Department [place] [place] [address] * (ABNORMAL) Urinalysis reflex to microscopic and culture Urine (05/21/2024 11:09 PM RESIZER OPERATOR) Pathologist [facility] Color, ur Yellow Yellow Clarity, ur Clear Clear [facility] Specific gravity, ur 1.025 1.003 - 1.030 [facility] pH, urine 6.0 [facility] Comment: Interpretive Data U rine pH is affected by diet, medications, systemic acid-base disturbances, and renal tubular function. pH may affect urinary stone formation. For example, urine pH below 6.0 may help reduce the tendency for calcium phosphate stones and pH greater than 6.0 may reduce the tendency for uric acid stone formation. Source: [facility] Current Interpretive Data was last revised on 2017 Protein, ur ql 1+(A) Negative [facility] Glucose, ur ql Negative Negative [facility] Ketones, ur Negative Negative [facility] Bilirubin, ur Negative Negative [facility] Blood, ur Trace(A) Negative [facility] Urobilinogen, ur <2.0 <2.0 mg/dL [facility] Nitrite, ur Positive(A) Negative [facility] Leukocyte esterase, ur 1+(A) Negative [facility] UA reflex comment Reflex to microscopic UA will be performed. [facility] Urine 05/21/2024 11:0 9 PM RESIZER OPERATOR 05/21/2024 11:22 PM RESIZER OPERATOR Angeline Soler MD LAB MICROBIOLOGY - GEN ERAL ORDERABLES Final Result Performing Organization Address City/State/[facility] Co de Phone Number [facility] [place] [address] * Respiratory pathogen panel Nasopharyngeal (05/21/2024 11:09 PM RESIZER OPERATOR) [facility] Influenza A RNA Not Detected Not Detected Influenza B RNA Not Detected Not Detected [facility] RSV RNA Not Detected Not Detected [facility] COVID-19 RNA Not Detected Not Detected [facility] Coronavirus 229E RNA Not Detected Not Detected [facility] Coronavirus HKU1 RNA Not Detected Not Detected [facility] Coronavirus NL63 RNA Not Detected Not Detected [facility] Coronavirus OC43 RNA Not Detected Not Detected [facility] Adenovirus DNA Not Detected Not Detected [facility] Metapneumovirus RNA Not Detected Not Detected [facility] Rhinovirus/Enterov irus RNA Not Detected Not Detected [facility] Parainfluenza 1 RNA Not Detected Not Detected [facility] Parainfluenza 2 RNA Not Detected Not Detected [facility] Parainfluenza 3 RNA Not Detected Not Detected [facility] Parainfluenza 4 RNA Not Detected Not Detected [facility] B. pertussis DNA Not Detected Not Detected [facility] B. parapertussis DNA Not Detected Not Detected [facility] C. pneumoniae DNA Not Detected Not Detected [facility] M. pneumoniae DNA Not Detected Not Detected [facility] Nasopharyngeal 05/21/2024 11 :09 PM RESIZER OPERATOR 05/22/2024 4:48 AM RESIZER OPERATOR Narrative [facility] - 05/22/2024 5:55 AM RESIZER OPERATOR Is the Patient experiencing symptoms consistent with COVID?->No Surveillance testing for transplant patient?->No Interpretive Data The Sulfagenix FilmArray Respiratory Panel (RP2.1) assay is a [...] assay has FDA clearance for testing of COAL WASHER swabs. The performance of additional specimen types has been assessed by the performing laboratory. The performance characteristics of this assay have been determined by [facility] Molecular Infectious Disease Laboratory. Current interpretive data was last revised on 22. Angeline Soler MD LAB MICROBIOLOGY - GEN ERAL ORDERABLES Final Result Performing Organization Address City/[facility] Co de Phone Number [facility] [place] [address] * (ABNORMAL) Urinalysis, microscopic only (05/21/2024 11:09 PM RESIZER OPERATOR) WBC, ur 11-20(A) 0 - 5 /HPF RBC, ur 3-5(A) 0 - 2 /HPF [facility] Epithelial cells, squamous, ur 1-5 0 - 5 /HPF [facility] Bacteria, ur 3+(A) [facility] Yeast, ur Trace(A) [facility] Mucous, ur Present(A) [facility] Culture Reflex Comment Reflex to urine culture will be performed. [facility] Urine 05/21/2024 11:0 9 PM RESIZER OPERATOR 05/21/2024 11:21 PM RESIZER OPERATOR Angeline Soler MD LAB URINE ORDERABLES F inal Result Performing Organization Address [facility] Co de Phone Number MARY JANE [facility] [place] [address] * (ABNORMAL) Urine culture Urine (05/21/2024 11:09 PM RESIZER OPERATOR) Pathologist [facility] Report Amended Report - Complete: Greater than or equal to 100,000 colonies/mL of Escherichia coli Plus growth of clinically insignificant bacterial yesenia. (.) Organism ESCHERICHIA COLI [facility] Organism PLUS GROWTH OF CLINICALLY INSIGNIFICANT YESENIA. [facility] Urine 05/21/2024 11:0 9 PM RESIZER OPERATOR 05/22/2024 2:40 AM RESIZER OPERATOR Narrative MARY JANE [facility] - 05/25/2024 10:36 AM RESIZER OPERATOR Urine culture reflexed based upon urinalysis results. Testing performed by [facility] ([phone]) Organism Antibiotic Method Susceptibility Escherichia coli Ampicillin [...] GEN ERAL ORDERABLES Edited Result - Final [facility] [place] [address] * POCT glucose (05/21/2024 8:55 PM RESIZER OPERATOR) Pathologist [facility] Glucose, POC 139 70 - 199 mg/dL Blood 05/21/2024 8:55 PM RESIZER OPERATOR 05/21/2024 8:55 PM RESIZER OPERATOR Notinfile Unknown LAB POCT ORDERABLES - DEVICE F inal Result Performing Organization Address [facility] Co de Phone Number [facility] [place] [address] * Troponin I high-sensitivity 4-hour (05/21/2024 7:26 PM RESIZER OPERATOR) Trop I hs 4 <=17 ng/L Comment: Interpretive Data For further hscTnI resources including the diagnostic algorithm and an aid in interpretation, copy and paste this link: [email or web address] Current Interpretive Data last revised 2019. Trop I hs delta -1 ng/L [facility] Trop I hs interp Insignificant [facility] Blood 05/21/2024 7:26 PM RESIZER OPERATOR 05/21/2024 7:37 PM RESIZER OPERATOR Cira Castro MD LAB BLOOD ORDERABL ES Final Result Performing Organization Address [facility] de Phone Number [facility] Department [place] [address] * Troponin I high-sensitivity series (baseline, 2hr, 4hr, 6hr) (05/21/2024 4:20 PM RESIZER OPERATOR) Trop I hs 5 <=17 ng/L Comment: Interpretive Data For further hscTnI resources including the diagnostic algorithm and an aid in interpretation, copy and paste this link: [email or web address] Current Interpretive Data last revised 2019. Blood 05/21/2024 4:20 PM RESIZER OPERATOR 05/21/2024 4:50 PM RESIZER OPERATOR Jimmie Zavala MD LAB BLOOD ORDERABLES Final Resul t Performing Organization Address [facility] Co de Phone Number [facility] Department [place] [address] * eGFR (05/21/2024 4:20 PM RESIZER OPERATOR) Pathologist [facility] eGFR >90 >=60 mL/min/1. 73 m2 Comment: [...] last reviewed 2021. Blood 05/21/2024 4:20 PM RESIZER OPERATOR 05/21/2024 4:50 PM RESIZER OPERATOR us Jimmie Zavala MD LAB BLOOD ORDERABLES Final Resul t [facility] Department [place] [address] * (ABNORMAL) Differential, auto (05/21/2024 4:20 PM RESIZER OPERATOR) Pathologist [facility] Neutrophil abs 8.0(H) 1.5 - 6.5 K/cumm Imm gran abs 0.0 0.0 - 0.1 K/cumm [facility] Lymphocyte abs 2.4 0.8 - 3.3 K/cumm [facility] Monocyte abs 0.8 0.2 - 0.8 K/cumm [facility] Eosinophil abs 0.2 0.0 - 0.5 K/cumm [facility] Basophil abs 0.0 0.0 - 0.1 K/cumm [facility] Neutrophil pct 69.4 % [facility] Comment: Interpretive Data [...] revised on 2017. Lymphocyte pct 21.4 % [facility] Comment: Interpretive Data Percent cell count reference ranges are not reported, since discordance with absolute values may lead to misinterpretation of CBC data. Current Interpretive Data was last revised on 2017. Monocyte pct 6.7 % [facility] Comment: Interpretive Data Percent cell count reference ranges are not reported, since discordance with absolute values may lead to misinterpretation of CBC data. Current Interpretive Data was last revised on 2017. Eosinophil pct 1.8 % [facility] Comment: Interpretive Data [...] revised on 2017. Blood 05/21/2024 4:20 PM RESIZER OPERATOR 05/21/2024 4:50 PM RESIZER OPERATOR us Jimmie Zavala MD LAB BLOOD ORDERABLES Final Resul t [facility] Department [place] [address] * (ABNORMAL) CBC with auto differential (05/21/2024 4:20 PM RESIZER OPERATOR) WBC 11.4(H) 3.8 - 9.9 K/cumm Hgb 14.0 11.9 - 15.5 g/dL [facility] Hct 43.6 35.6 - 45.5 % [facility] Plt 286 150 - 400 K/cumm [facility] MPV 9.9 9.1 - 12.3 fL [facility] RBC 4.83 3.90 - 5.20 M/cumm [facility] MCV 90.3 81.3 - 96.4 fL [facility] MCH 29.0 27.1 - 33.3 pg [facility] MCHC 32.1(L) 32.3 - 35.7 g/dL [facility] RDW CV 13.6 11.1 - 14.9 % [facility] RDW SD 45.6 35.7 - 48.1 fL [facility] NRBC abs 0.00 0.00 - 0.01 K/cumm [facility] Blood Venous blood specimen / Unknown 05/21/2024 4:20 PM RESIZER OPERATOR 05/21/2024 4:50 PM RESIZER OPERATOR us Jimmie Zavala MD LAB BLOOD ORDERABLES Final Resul t Performing Organization Address City/[facility]/ZIP Co de Phone Number [facility] Department [place] [employer] [place] [address] * (ABNORMAL) Hemoglobin A1c (05/21/2024 4:20 PM RESIZER OPERATOR) Hgb A1C 8.7(H) 4.0 - 5.6 % Estimated Average Glucose 203 mg/dL [facility] Comment: The ADA recommends reporting an estimated Average Glucose (eAG) with all Hemoglobin A1c results using the equation derived from a study of 507 normal and diabetic adults. Minority populations were underrepresented and children were not included. (Diabetes Care 2020; 43(S1): S66-S76). The eAG is not equivalent to a fasting glucose. Blood 05/21/2024 4:20 PM RESIZER OPERATOR 05/21/2024 4:55 PM RESIZER OPERATOR us Leo Henry MD LAB BLOOD ORDERABLES Final Result [facility] Department [place] [address] * (ABNORMAL) Lipid panel (05/21/2024 4:20 PM RESIZER OPERATOR) Cholesterol 205(H) 30 - 199 mg/dL Comment: [...] 2017. Triglycerides 92 <=149 mg/dL [facility] Comment: Interpretive Data Ages < or [...] 2017. HDL 55 >=40 mg/dL [facility] Comment: Interpretive Data Ages < or [...] LDL, calculated 134(H) <=129 mg/dL [facility] Comment: Interpretive Data Ages < or [...] 3. Kedar Montero et al. NANO Cardiol. 2020 August 22;5(5):540-548. doi: [email or web address] Current Interpretive Data was last revised on 2023. Non-HDL Cholesterol 150 mg/dL [facility] Comment: Interpretive Data Ages < [...] last revised on 2017. Chol/HDL ratio 4 [facility] Blood 05/21/2024 4:20 PM RESIZER OPERATOR 05/21/2024 4:50 PM RESIZER OPERATOR Narrative [facility] - 05/22/2024 4:17 PM RESIZER OPERATOR Reflex Leo Henry MD LAB BLOOD ORDERABLES Final Result [facility] [place] [address] * Comprehensive metabolic panel (05/21/2024 4:20 PM RESIZER OPERATOR) Sodium 140 135 - 145 mmol/L Potassium, pl 4.3 3.3 - 4.9 mmol/L [facility] Chloride 100 97 - 110 mmol/L [facility] CO2 29 22 - 32 mmol/L [facility] Anion gap 11 2 - 15 mmol/L [facility] BUN 14 6 - 25 mg/dL [facility] Creatinine 0.63 0.60 - 1.10 mg/dL [facility] Glucose 119 70 - 199 mg/dL [facility] [...] 2022. Calcium 10.0 8.5 - 10.3 mg/dL [facility] Bilirubin, total 0.7 0.1 - 1.2 mg/dL [facility] Protein, pl 8.5 6.5 - 8.5 g/dL [facility] Albumin 3.9 3.5 - 5.0 g/dL [facility] Alk phos 83 40 - 130 Units/L [facility] ALT 23 7 - 45 Units/L [facility] AST 22 10 - 45 Units/L [facility] Blood 05/21/2024 4:20 PM RESIZER OPERATOR 05/21/2024 4:50 PM RESIZER OPERATOR us Jimmie Zavala MD LAB BLOOD ORDERABLES Final Resul t [facility] [place] [address] * XR Chest Pa Lateral 2 Views (05/21/2024 2:23 PM RESIZER OPERATOR) Anatomical Region Laterality Modality Body, Chest N/A Computed Radiogr aphy 05/21/2024 2:28 PM RESIZER OPERATOR Impressions 05/21/2024 2:36 PM RESIZER OPERATOR The current study is compared with the [...] Jaime Neves M.D. Narrative 05/21/2024 2:36 PM RESIZER OPERATOR EXAMINATION: 2 view chest radiograph Procedure Note [...] Result * POCT glucose (05/21/2024 1:39 PM RESIZER OPERATOR) Glucose, POC 113 70 - 199 mg/dL Blood 05/21/2024 1:39 PM RESIZER OPERATOR 05/21/2024 1:39 PM RESIZER OPERATOR us Notinfile Unknown LAB POCT ORDERABLES - DEVICE F inal Result [facility] [place] [address] * ECG 12-LEAD (05/21/2024 1:36 PM RESIZER OPERATOR) Narrative [facility] - 05/21/2024 1:36 PM RESIZER OPERATOR Gil Mcgrath MD 05/21/2024 1:37 PM ECG [...] Zavala MD ECG ORDERABLES Final Result [facility] * Axillary Breast Left (05/21/2024 12:13 PM RESIZER OPERATOR) Anatomical Region Laterality Modality Upper Extremities Left Ultrasound 05/21/2024 12:2 3 PM RESIZER OPERATOR Impressions 05/21/2024 12:23 PM RESIZER OPERATOR 1. Limited ultrasound due to extensive edema [...] Alicia Wilcox M.D. Narrative 05/21/2024 12:23 PM RESIZER OPERATOR EXAMINATION: LEFT AXILLARY ULTRASOUND HISTORY: Patient is [...] Alicia Wilcox M.D. us Khris Arthur MD IMG US PROCEDURES Fi nal Result * Dexa Axial Skeleton Bone Density 1 or 2 Site (08/02/2022 10:53 AM CDT) Anatomical Region Laterality Modality Body N/A Radiographic Lizeth ging Narrative 08/02/2022 3:34 PM CDT Patient Name: Mohsen Marques Date of : 1955 Date of scan: 08/02/2022 Bone mineral density was performed on a HoloSensory Medical Discovery Densitometer. Based on machine cross-calibration and [...] by the International Society of Clinical Densitometry. [id number] Khris Arthur MD IMG DXA PROCEDURES F [...] agrees with it. ACC# Date Time Exam [id number] Aug 19, 2016 14:27:00 [facility] [id number] Diag Mamm, inc CAD, unilat L Technologist(s): Carla Harris; ; [id number] Aug 19, 2016 15:39:00 [facility] [id number] Breast US unilateral, ltd L ACC# Date Time Exam [id number] Aug 19, 2016 14:27:00 [facility] [id number] Diag Mamm, inc CAD, unilat L Technologist(s): Carla Harris; ; [id number] Aug 19, 2016 15:39:00 [facility] 95460 Breast US unilateral, ltd L EXAMINATION: LEFT [...] SARABIA M.D. on Aug 19 2016 4:20P [id number] Procedure Note Miscellaneous, Not In File / Provider, MD Tyler - 09/17/2016 ANTHONY SARABIA M.D. JUDY RINCON M.D. FINAL REPORT The radiology attending physician has personally reviewed this study, and has reviewed and/or edited this written report and agrees with it. ACC# Date Time Exam [id number] Aug 19, 2016 14:27:00 [facility] 05638 Diag Mamm, inc CAD, unilat L Technologist(s): Carla Harris; ; [id number] Aug 19, 2016 15:39:00 C [id number] Breast US unilateral, ltd L ACC# Date Time Exam [id number] Aug 19, 2016 14:27:00 C 24128 Diag Mamm, inc CAD, unilat L Technologist(s): Carla Harris; ; [id number] Aug 19, 2016 15:39:00 C 21247 Breast US unilateral, ltd L EXAMINATION: LEFT [...] SARABIA M.D. on Aug 19 2016 4:20P [id number] us Not In File Miscellaneous IMG MAMMO PROCEDURES F inal Result from Last 3 Months or Most Recently Relevant to Health Maintenance Insurance [facility] [place] [address] [facility] [employer] [place] [address] [employer] MEDICARE ADVANTAGE [facility] [employer] [place] [address] Advance Directives For more information, please contact: [phone] Documents on File Type Date Recorded Patient Events Specialist Expl anation ADVANCE DIRECTIVE 12/23/2021 2:49 PM Power of Culled Fruit Packer-Medical ADVANCE DIRECTIVE 12/23/2021 2:49 PM Living Will [...] First Alternate Health Care Agent Care Teams Fruit Loader Relationship Specialty Start Date End Date Justen Gale MD [address] [address] PCP - General 10/09/17 Liu Jerez MD Consulting Physician Gastroenterology 07/28/17 [place] [address] [facility] [facility] [address] [place] [address] Consulting Physician Pulmonary Disease 08/03/17 Khris Arthur MD [address] [facility] [address] [place] [address] Medical Oncologist/Ore Crusher Medical Oncology 10/23/17 [place] [address] [facility] [facility] [address] [place] [address] Surgeon Orthopedic Surgery 10/23/17 [place] [address] [facility] [facility] [address] [place] [address] Consulting Physician Pain Management 10/23/17 [place] [address] [facility] [address] [place] [address] Referring Physician General Surgery 01/26/18 [place] [address] [facility] [address] [place] [address] Consulting Physician Neurology 01/26/18
--- OUTSIDE RECORDS SUMMARY | 2024-08-13 21:52 | XMS_ITS | Encounter Summary ---
Author Organization [facility] Address [address] [place] [address] Phone Care Team Providers Care Economic Specialist Name Role Phone Justen Gale MD Primary Care Provider [phone] David Roberts APRN, INFECTION CONTROL RN Unavailable [phone] Annel Rod MD Unavailable Reason for Visit * Reason Onset Date Comments Sore Throat 06/29/2020 Encounter Details Date Type Department Care Team (Late st Contact Info) Description 06/29/2020 Telephone [facility] [place] [address] [place] [address] Justen Gale MD #[address] [address] Sore Throat Social History Tobacco Use Types [...] COVID-19? No / Unsure 06/29/2020 8:43 AM RECREATION ATTENDANT SUPERVISOR documented as of this encounter Miscellaneous Notes * Telephone Encounter - Gail Lucero RN - 06/29/2020 3:53 PM CST Attempted to call mailbox is full. Pt does not need testing EATION ATTENDANT SUPERVISOR * Telephone Encounter - Vince Hermosillo MD - 06/29/2020 3:13 PM CST No covid testing needed. If the er thought that it was warranted then they would have done this. EATION ATTENDANT SUPERVISOR * Telephone Encounter - Marlys Sorensen RN - 06/29/2020 8:36 AM CST Patient calling. Patient is calling to schedule Hospital/ED/Prompt-Care follow up appointment. Hospital/ED/Prompt-Care Site: [facility] ED Records Requested: Yes Reason for [...] f/up and yearly PAP appointments? Please advise. EATION ATTENDANT SUPERVISOR documented in this encounter Plan of Treatment Upcoming Encounters Date Type Department Care Team (Late st Contact Info) Description 09/18/2024 2:45 PM CDT Office Visit [facility] - [facility]ocr[facility]ology - [place] #2 [place] [address] Annel Rod MD #2 [facility] [address] [place] [address] 09/24/2024 2:00 PM CDT [facility] [address] [place] [address] Angelito Alegria, LAW SECRETARY, INFECTION CONTROL RN #2 [facility] [address] [place] [address] Discharge Disposition: Discharged to home or Selfcare documented as of this encounter Visit Diagnoses Not on filedocumented in this encounter Additional Health Concerns Infection Onset Date Last Indicated Resolved Time COVID - 19 08/01/2024 08/01/2024 08/01/2024 3:20 PM CDT Assessment Noted Time PHQ-9 Depression Total Score: 0 09/08/19 19 1:00 PM CDT documented as of this encounter Care Teams Economic Specialist Relationship Specialty Start Date End Date Justen Gale MD #2 [facility] [address] [place] [address] PCP - General Family Medicine 10/17/17 David Roberts APRN, INFECTION CONTROL RN #2 [place] [address] Nurse Practitioner Advanced Practice Nurse 01/31/22 Annel Rod MD #2 [facility] [address] [place] [address] Consulting Physician Endocrinology 07/01/22 documented as of this encounter
--- OUTSIDE RECORDS SUMMARY | 2024-08-13 21:53 | XMS_ITS | Encounter Summary ---
Author Organization [facility] Address [address] [place] [address] Phone Care Team Providers Care Customer Assistance Representative Name Role Phone Justen Gale MD Primary Care Provider [phone] David Roberts APRN, WATERPROOFING SUPERVISOR Unavailable [phone] Annel Rod MD Unavailable Reason for Visit * Reason Onset Date Comments High Blood Sugar 08/13/2024 Encounter Details Date Type Department Care Team (Late st Contact Info) Description 08/13/2024 [facility] [address] [place] [address] Justen Gale MD #[address] [address] High Blood Sugar Social History Tobacco Use Types Packs/Day Years Used Date Smoking Tobacco: Never Smokeless Tobacco: Never Alcohol Use Standard Drinks/Week Comments No 0 (1 standard drink = 0.6 oz pur e alcohol) [facility] Utilities Answer Date Recorded In the past [...] How often do you attend chur or islam services? More than 4 times [...] Total Score - Questions 1-9 0 07/23 [facility] - [...] time in the past 12 m [facility], were you homeless or living in a skilled nursing (including now)? No 08/06/2024 Education Answer Date [...] encounter Miscellaneous Notes * Telephone Encounter - Julieta Gaviria RN - 08/13/2024 9:03 PM CDT SITUATION: Patient calling-high blood sugar BACKGROUND: Patient contacting PCP office. Symptoms ongoing, for a couple hours. Reporting an infection on top of the high sugar. Blood glucose monitor has been reading off the chart for a couple hours. When it reads off that chart is is at least 400 or above. ASSESSMENT: Reports: Sweating a lot I feel a little bit of not feeling good with it Can't stand real real long but able to stand and walk Feeling very nauseous Denies: Vomiting Fever RECOMMENDATION: Agreeable to ED, plans to go now. She is about 7 minutes away and she is encouraged to call [address] if any symptoms worsen. - See care advice and disposition for [...] or weak to the triager Protocols used: Diabetes - High Blood Sugar-A-AH documented in this encounter Plan of Treatment Upcoming Encounters Date Type Department Care Team (Late st Contact Info) Description 09/18/2024 2:45 PM CDT Office Visit [facility] - [facility]ocrinology - [place] #2 [place] [address] Annel Rod MD #[address] [address] 09/24/2024 2:00 PM CDT [facility] [address] [place] [address] Angelito Alegria APRN, WATERPROOFING SUPERVISOR #[address] [address] Discharge Disposition: Discharged to home or Selfcare documented as of this encounter Visit Diagnoses Not on filedocumented in this encounter Additional Health Concerns Assessment Noted Time PHQ-9 Depression Total Score: 0 08/02/19 25 1:09 PM CDT documented as of this encounter Care Teams Customer Assistance Representative Relationship Specialty Start Date End Date Justen Gale MD #[address] [address] PCP - General Family Medicine 10/17/17 David Roberts APRN, NETTA #2 [place], [place] [address] Nurse Practitioner Advanced Practice Nurse 01/31/22 Annel Rod MD #2 [facility] [address] Consulting Physician Endocrinology 07/01/22 documented as of this encounter
--- OUTSIDE RECORDS SUMMARY | 2024-08-13 21:53 | XMS_ITS | Encounter Summary ---
Author Organization [facility] Address [address] [place] [address] Phone Care Team Providers Care Head Stock Transfer Clerk Name Role Phone Justen Gale MD Primary Care Provider [phone] David Roberts APRN, STOCK LIFTER Unavailable [phone] Annel Rod MD Unavailable Reason for Visit * Reason Onset Date Comments Medication Refill 08/06/2020 Encounter Details Date Type Department Care Team (Late st Contact Info) Description 08/06/2020 Refill [facility] #2 [facility] [address] Justen Gale MD #[address] [address] Medication Refill Social History Tobacco Use Types [...] Outpatient Visits 2 weeks ago [facility] APN, STOCK LIFTER 2 months ago Increased [facility] P[facility] Mueller APN, STOCK LIFTER 5 months ago Urinary [facility] Pili Mueller APN, STOCK LIFTER 8 months ago Type 2 diabetes mellitus with diabetic polyneuropathy, with long- term current use of insulin (HCC) [facility] Pili Mueller APN, STOCK LIFTER 9 months ago Nausea [facility] Justen Urbano MD Upcoming Appointments Future Appointments In 6 days Pili Elkins APN, STOCK LIFTER [facility] DISPATCHER INTERSTATE - Recent and Past Visits Recent Visits Date Type Provider Dept 07/20/20 Office Visit Pili Elkins APN, STOCK LIFTER [facility] 06/05/20 Office Visit Pili Elkins APN, NETTA [facility] 02/17/20 Office Visit Pili Elkins APN, NETTA [facility] 12/03/19 Office Visit Pili Elkins APN, NETTA [facility] 11/05/19 Telemedicine Justen Gale MD [facility] 07/25/19 Telemedicine [facility] within past 460 days with a meds authorizing provider and meeting all other requirements Future Appointments Date Type Provider Dept 08/12/20 Appointment Pili Elkins APN, CNP [facility] Showing future appointments within next 90 [...] Description 09/18/2024 2:45 PM CDT Office Visit [facility] - Endocrinology - [place] #2 [place] [phone] Annel Rod MD #[address] [address] 09/24/2024 2:00 PM CDT Appointment [facility] Cardiology Services 1 [place] [address] Angelito Alegria ASSEMBLY MECHANIC, STOCK LIFTER #2 [facility] [address] [place] [address] Discharge Disposition: Discharged to home or Selfcare documented as of this encounter Visit Diagnoses Not on filedocumented in this encounter Additional Health Concerns Infection Onset Date Last Indicated Resolved Time COVID - 19 08/01/2024 08/01/2024 08/01/2024 3:20 PM CDT Assessment Noted Time PHQ-9 Depression Total Score: 0 07/21/19 3:00 PM CDT documented as of this encounter Care Teams Head Stock Transfer Clerk Relationship Specialty Start Date End Date Justen Gale MD #[address] [address] PCP - General Family Medicine 10/17/17 David Roberts APRN, STOCK LIFTER #2 [place] [address] Nurse Practitioner Advanced Practice Nurse 01/31/22 Annel Rod MD #[address] [address] Consulting Physician Endocrinology 07/01/22 documented as of this encounter
--- OUTSIDE RECORDS SUMMARY | 2024-08-13 21:53 | XMS_ITS | CONTINUITY OF CARE DOCUMENT ---
Author Name ayesha, ayesha Address Unknown Organization [facility] Address [address] [address] [place] [address] Phone [phone] Care Team Providers Care Brass Instrument Repair Technician Name Role Phone Yamilet DURÁN, Maico Unavailable ALANIS DURÁN, BRIDGETT Unavailable [phone] ALLISON DURÁN, CLARISSE Unavailable PROBLEMS Condition Status Date Provider Notes Shortness of breath active Ivory Rodriguez Palpitations active Radha Seals INSURANCE PROVIDERS Payer name Policy type / Coverage type [place] [employer] party ID UHC MEDICARE COMPLETE HMO Other [id number] [facility] Medicaid 2 [id number] HISTORY OF PROCEDURES Procedure Date Procedure Name Provider Procedure Notes S tatus Stress EKG Carmine Silverio MD complet ed Regadenoson, 4 units Sergey Saldana MD completed Cardiolite, 2 units Sergey Saldana MD completed SPECT Images Carmine Silverio MD compl eted Holter, 24 or 48 Maico Woodard MD co mpleted
--- OUTSIDE RECORDS SUMMARY | 2024-08-13 21:53 | XMS_ITS | Encounter Summary ---
Author Organization [facility] Address [address] [place] [address] Phone Care Team Providers Care Supervisor Sewing Department Name Role Phone Justen Gale MD Primary Care Provider [phone] David Roberts APRN, CASTING AND LOCKER ROOM SERVICER Unavailable [phone] Annel Rod MD Unavailable Reason for Visit * Reason Comments Medication Refill Encounter Details Date Type Department Care Team (Late st Contact Info) Description 03/13/2021 Refill [facility] [address] [place] [address] Justen Gale MD [address] [address] Medication Refill Social History Tobacco [...] COVID-19? No / Unsure 03/02/2021 5:05 PM FOOD CONSULTANT documented as of this encounter Plan of Treatment Upcoming Encounters Date Type Department Care Team (Late st Contact Info) Description 09/18/2024 2:45 PM CDT Office Visit [facility] End[facility] [address] [place] [address] Annel Rod MD #2 [facility] [address] [place] [address] 09/24/2024 2:00 PM CDT Appointment [facility] [address] [place] [address] Angelito Alegria, WAREHOUSE OPERATIONS ASSOCIATE, CASTING AND LOCKER ROOM SERVICER #2 [facility] [address] [place] [address] Discharge Disposition: Discharged to home or Selfcare documented as of this encounter Visit Diagnoses Not on filedocumented in this encounter Additional Health Concerns Infection Onset Date Last Indicated Resolved Time COVID - 19 08/01/2024 08/01/2024 08/01/2024 3:20 PM CDT Assessment Noted Time PHQ-9 Depression Total Score: 0 07/21/19 3:00 PM CDT documented as of this encounter Care Teams Supervisor Sewing Department Relationship Specialty Start Date End Date Justen Gale MD #[address] [address] PCP - General Family Medicine 10/17/17 David Roberts APRN, CASTING AND LOCKER ROOM SERVICER [address] [place] [address] Nurse Practitioner Advanced Practice Nurse 01/31/22 Annel Rod MD [address] [place] [id number] Consulting Physician Endocrinology 07/01/22 documented as of this encounter
--- OUTSIDE RECORDS SUMMARY | 2024-08-13 21:53 | XMS_ITS | Referral Summary ---
Author Organization [facility] Address [address] [place] [id number] Care Team Providers Care Drug Abuse Counselor Name Role Phone Liu Jerez MD Unavailable Albert Corbin MD Unavailable Justen Gale MD Primary Care Provider Khris Arthur MD Unavailable [phone] Ko Melendez MD Unavailable John Paul Moyer MD Unavailable Annel Rod MD Unavailable Anali MARSHALL MD, Carlos M. Unavailable Encounters Date Type Department Care Team Description 07/01/2024 8:52 PM CDT - 07/01/2024 10:18 PM CDT Emergency [facility] Emergency Department [address] [place] [address] Myalgia (Primary Dx); Viral syndrome Discharge Disposition: Discharge to home or self care 05/30/2024 Orders Only [facility] [address] [facility] [address] [place] [address] Radha Mcgrath RN Lymphedema of left arm (Primary Dx); Malignant neoplasm of upper-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, unspecified estrogen receptor status (HCC); Malignant neoplasm of overlapping sites of left female breast, unspecified estrogen receptor status (HCC); Malignant neoplasm of female breast, unspecified estrogen receptor status, unspecified laterality, unspecified site of breast (HCC) 05/21/2024 9:12 PM ELECTRICIAN SECOND - 05/26/2024 6:45 PM ELECTRICIAN SECOND Hospital Encounter [address] [address] Jimmie Zavala MD Liss, MD Ra Parnell, MD Sebastian Claros, MD Carlos Left arm pain (Primary Dx); Left leg pain; Shortness of breath; Urinary tract infection without hematuria, site unspecified; Allergy to drug Discharge Disposition: Discharge to home or self care 05/24/2024 Telephone [facility] [address] [place] [address] Radha Warner RN 05/23/2024 8:10 AM ELECTRICIAN SECOND Ancillary Procedure [facility] IP [address] [facility] [address] [place] [address] 05/21/2024 12:58 PM ELECTRICIAN SECOND - 05/21/2024 11:59 PM ELECTRICIAN SECOND Hospital Encounter AMBULANCE BILLING [address] [place] [address] Discharge Disposition: Discharge to home or self care 05/21/2024 11:00 AM ELECTRICIAN SECOND - 05/21/2024 11:59 PM ELECTRICIAN SECOND Hospital Encounter [facility] [address] [place] [address] Floor 8 [place] [address] History of breast cancer; Axillary pain, left Discharge Disposition: Discharge to home or self care 05/16/2024 Telephone [facility] [address] [place] [address] 8 [place] [address] Jeanine Ba RMA 05/16/2024 Orders Only [facility] [address] [place] [address] 8 [place] [phone] Radha Mcgrath RN History of breast cancer (Primary Dx); Axillary pain, left 05/16/2024 Orders Only [facility] [address] [facility] [address] [place] [id number] Khris Arthur MD Swelling of left upper [...] Taken at 2100 Active blood glucose diagnostic ([employer]id[employer]uch Ultra Test) strip 4 (four) times a day Active albuterol HFA (PROVENTIL HFA,VENTOLIN HFA,PROAIR HFA) 90 mcg/actuation inhaler Inhale 2 puffs every 6 (six) hours as needed for wheezing or shortness of breath Active naloxone (NARCAN) 4 mg/actuation spray,non-aerosol Active BD Ultra-Fine Short Pen Needle 31 gauge x 5/16 needle USE 6 TIMES DAILY DIRECTED Active oxyBUTYnin XL (DITROPAN XL) 15 mg [...] 05/22/2024 Assessment & Plan (05/26/2024 10:08 AM ELECTRICIAN SECOND): Presenting with urinary symptoms of right flank [...] 3 doses q48 hours -Previously followed with [facility], but lost to follow up when her Urologist left the practice, outpatient urology follow up placed - good pain control w/Dilaudid, continue prn Venous thromboembolism (VTE) 05/22/2024 Assessment & Plan (05/25/2024 7:52 AM ELECTRICIAN SECOND): Hx of breast cancer c/b DVT/bilateral Pes [...] 05/22/2024 Assessment & Plan (05/22/2024 1:14 PM ELECTRICIAN SECOND): -long-standing chronic back pain -CT L spine [...] complication, without long-term current use of insulin ([facility]) 10/23/2017 Assessment & Plan (10/23/2017 2:06 [...] 10/13/2017 Assessment & Plan (05/22/2024 12:29 PM ELECTRICIAN SECOND): -Hx stage II, ER positive, HER2 negative breast cancer, on adjuvant exemestane -s/p bilateral mastectomies, left axillary LN dissection, with negative margins -[facility] review indicates plan to continue on exemestane, will complete 10 years of therapy in 12/2024 -Yearly Reclast, next dose 11/2024 Chest pressure 08/01/2017 Positive blood culture 08/01/2017 Hyponatremia 08/01/2017 Diet-controlled diabetes mellitus (CMS/HCC) 07/23 LUL (obstructive sleep apnea) 08/01/2017 Assessment & Plan (05/22/2024 12:33 PM ELECTRICIAN SECOND): -Hx LUL -Hospital provided CPAP ordered History of DVT (deep vein thrombosis) 08/01/2017 History of pulmonary embolism 08/01/2017 Generalized weakness 07/27/2017 Dyspnea 07/27/2017 Unintentional weight loss 07/27/2017 Acute cystitis without hematuria 07/27/2017 Nausea and vomiting 07/26/2017 Overview (07/28/2017): Added automatically from request for surgery [id number] Pulmonary embolism 08/09/2016 Assessment & Plan (10/23/2017 2:05 AM CDT): On Rivaroxaban Lymphedema of left upper extremity 08/09/2016 Assessment & Plan (05/25/2024 7:53 AM ELECTRICIAN SECOND): S/p L axillary lymph node dissection 2014, [...] syndrome Assessment & Plan (05/22/2024 11:18 AM ELECTRICIAN SECOND): -continue home Requip 5mg nightly Pain of lower extremity 03/12/2013 Overview (07/29/2016): Leg pain Essential hypertension Assessment & Plan (05/23/2024 10:42 AM ELECTRICIAN SECOND): -Chart history of HTN but not on meds -BP elevated on admission, likely some pain contributing -Monitor closely once pain under adequate control, discussed following up with PCP for this Chronic anticoagulation Restless leg syndrome 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 Type 2 diabetes mellitus without complication Assessment & Plan (05/24/2024 1:39 PM ELECTRICIAN SECOND): -Last Ha1c 8.4 in 2023, repeat 8.7 [...] often do you attend chur ch or caodaism services? More than 4 times per year 05/24/2024 Do you belong to any clubs o r organizations such as protestant groups, unions, fraternal or athletic groups, or [...] a nursing home (including now)? No 08/15/2023 Housing Stability Vital Sign Answer [place] e Recorded In the last 12 months, was t here a time when you were not able to pay the mortgage or rent on time? No 05/24/2024 In the past 12 months, how m any times have you moved where you were living? 0 05/24/2024 At [facility] time in the [facility], were you homeless or living in a nursing home (including now)? No 05/24/2024 Personal Safety Answer Date Recorded Have you ever been in or are you currently in a harmful physical or emotional relationship or is someone making you feel afraid or unsafe? Denies 07/01/2024 Comments No Sex and Gender Information Value Date Recorded Sex Assigned at Not on file Legal Sex Female 12:24 AM ELECTRICIAN SECOND Gender Identity Not on file Sexual Orientation [...] Comments CT CHEST W CONTRAST ED 07/01/2024 7:08 PM CDT URINALYSIS, MICROSCOPIC ONLY STAT 07/01/2024 [...] GLUCOSE DEVICE Routine 05/26/2024 4 :27 PM ELECTRICIAN SECOND POCT GLUCOSE DEVICE Routine 05/26/2024 1 1:38 AM ELECTRICIAN SECOND POCT GLUCOSE DEVICE Routine 05/26/2024 8 :12 AM ELECTRICIAN SECOND EGFR Routine 05/26/2024 12:05 AM ELECTRICIAN SECOND DIFFERENTIAL AUTO Routine 05/26/2024 12: 05 AM ELECTRICIAN SECOND PHOSPHORUS Routine 05/26/2024 12:05 AM ELECTRICIAN SECOND COMPREHENSIVE METABOLIC PANEL Routine 05/26/2024 12:05 AM ELECTRICIAN SECOND MAGNESIUM Routine 05/26/2024 12:05 AM ELECTRICIAN SECOND CBC WITH AUTO DIFFERENTIAL Routine 05/26/2024 12:05 AM ELECTRICIAN SECOND POCT GLUCOSE DEVICE Routine 05/25/2024 7 :44 PM ELECTRICIAN SECOND POCT GLUCOSE DEVICE Routine 05/25/2024 5 :24 PM ELECTRICIAN SECOND POCT GLUCOSE DEVICE Routine 05/25/2024 1 1:37 AM ELECTRICIAN SECOND POCT GLUCOSE DEVICE Routine 05/25/2024 7 :27 AM ELECTRICIAN SECOND EGFR Routine 05/25/2024 12:20 AM ELECTRICIAN SECOND DIFFERENTIAL AUTO Routine 05/25/2024 12: 20 AM ELECTRICIAN SECOND PHOSPHORUS Routine 05/25/2024 12:20 AM ELECTRICIAN SECOND COMPREHENSIVE METABOLIC PANEL Routine 05/25/2024 12:20 AM ELECTRICIAN SECOND MAGNESIUM Routine 05/25/2024 12:20 AM ELECTRICIAN SECOND CBC WITH AUTO DIFFERENTIAL Routine 05/25/2024 12:20 AM ELECTRICIAN SECOND POCT GLUCOSE DEVICE Routine 05/24/2024 8 :13 PM ELECTRICIAN SECOND POCT GLUCOSE DEVICE Routine 05/24/2024 5 :17 PM ELECTRICIAN SECOND POCT GLUCOSE DEVICE Routine 05/24/2024 1 2:49 PM ELECTRICIAN SECOND POCT GLUCOSE DEVICE Routine 05/24/2024 9 :22 AM ELECTRICIAN SECOND HERPES SIMPLEX VIRUS (HSV) PCR Routine 05/24/2024 8:47 AM ELECTRICIAN SECOND POCT GLUCOSE DEVICE Routine 05/24/2024 8 :22 AM ELECTRICIAN SECOND EGFR Routine 05/24/2024 12:29 AM ELECTRICIAN SECOND DIFFERENTIAL AUTO Routine 05/24/2024 12: 29 AM ELECTRICIAN SECOND PHOSPHORUS Routine 05/24/2024 12:29 AM ELECTRICIAN SECOND COMPREHENSIVE METABOLIC PANEL Routine 05/24/2024 12:29 AM ELECTRICIAN SECOND MAGNESIUM Routine 05/24/2024 12:29 AM ELECTRICIAN SECOND CBC WITH AUTO DIFFERENTIAL Routine 05/24/2024 12:29 AM ELECTRICIAN SECOND POCT GLUCOSE DEVICE Routine 05/23/2024 8 :16 PM ELECTRICIAN SECOND POCT GLUCOSE DEVICE Routine 05/23/2024 6 :14 PM ELECTRICIAN SECOND POCT GLUCOSE DEVICE Routine 05/23/2024 1 2:17 PM ELECTRICIAN SECOND US VEIN DUPLEX LOWER EXTREMITY BILATERAL COMPLETE IP Routine 05/23/2024 11:45 AM ELECTRICIAN SECOND POCT GLUCOSE DEVICE Routine 05/23/2024 8 :16 AM ELECTRICIAN SECOND DIFFERENTIAL AUTO Routine 05/23/2024 2:3 0 AM ELECTRICIAN SECOND CBC WITH AUTO DIFFERENTIAL Routine 05/23/2024 2:30 AM ELECTRICIAN SECOND EGFR Routine 05/23/2024 12:42 AM ELECTRICIAN SECOND LACTATE DEHYDROGENASE Routine 05/23/2024 12:42 AM ELECTRICIAN SECOND URIC ACID Routine 05/23/2024 12:42 AM ELECTRICIAN SECOND TYPE AND SCREEN Timed 05/23/2024 12:42 AM ELECTRICIAN SECOND PHOSPHORUS Routine 05/23/2024 12:42 AM ELECTRICIAN SECOND COMPREHENSIVE METABOLIC PANEL Routine 05/23/2024 12:42 AM ELECTRICIAN SECOND MAGNESIUM Routine 05/23/2024 12:42 AM ELECTRICIAN SECOND POCT GLUCOSE DEVICE Routine 05/22/2024 8 :56 PM ELECTRICIAN SECOND POCT GLUCOSE DEVICE Routine 05/22/2024 6 :09 PM ELECTRICIAN SECOND POCT GLUCOSE DEVICE Routine 05/22/2024 4 :[address] ABDOMEN PELVIS W CONTRAST ED 05/22/2024 2:32 PM ELECTRICIAN SECOND POCT GLUCOSE DEVICE Routine 05/22/2024 1 2:58 PM ELECTRICIAN SECOND POCT GLUCOSE DEVICE Routine 05/22/2024 9 :29 AM ELECTRICIAN SECOND POCT GLUCOSE DEVICE Routine 05/22/2024 6 :[address] CHEST PE W CONTRAST ED 05/22/2024 1:31 AM ELECTRICIAN SECOND D-DIMER, QUANTITATIVE Routine 05/22/2024 12:24 AM ELECTRICIAN SECOND URINALYSIS, MICROSCOPIC ONLY Routine 05/21/2024 11:09 PM ELECTRICIAN SECOND TROPONIN I HIGH-SENSITIVITY 2-HOUR Timed 05/21/2024 11:09 PM ELECTRICIAN SECOND URINE CULTURE Routine 05/21/2024 11:09 PM ELECTRICIAN SECOND RESPIRATORY PATHOGEN PANEL Routine 05/21/2024 11:09 PM ELECTRICIAN SECOND URINALYSIS AND REFLEX TO MICROSCOPIC AND CULTURE Routine 05/21/2024 11:09 PM ELECTRICIAN SECOND POCT GLUCOSE DEVICE Routine 05/21/2024 8 :55 PM ELECTRICIAN SECOND TROPONIN I HIGH-SENSITIVITY 4-HOUR Timed 05/21/2024 7:26 PM ELECTRICIAN SECOND LIPID PANEL STAT 05/21/2024 4:20 PM ELECTRICIAN SECOND HEMOGLOBIN A1C STAT 05/21/2024 4:20 PM ELECTRICIAN SECOND EGFR STAT 05/21/2024 4:20 PM ELECTRICIAN SECOND DIFFERENTIAL AUTO STAT 05/21/2024 4:2 0 PM ELECTRICIAN SECOND TROPONIN I HIGH-SENSITIVITY SERIES (BASELINE, 2HR, 4HR, 6HR) STAT 05/21/2024 4:20 PM ELECTRICIAN SECOND COMPREHENSIVE METABOLIC PANEL STAT 05/21/2024 4:20 PM ELECTRICIAN SECOND CBC WITH AUTO DIFFERENTIAL STAT 05/21/2024 4:20 PM ELECTRICIAN SECOND XR CHEST PA LATERAL 2 VIEWS ED 05/21/2024 2:23 PM ELECTRICIAN SECOND POCT GLUCOSE DEVICE Routine 05/21/2024 1 :39 PM ELECTRICIAN SECOND ECG 12-LEAD STAT 05/21/2024 1:36 PM ELECTRICIAN SECOND US AXILLARY LEFT Schedule Routine, Read Routine (OP Routine) 05/21/2024 12:13 PM ELECTRICIAN SECOND History of breast cancer Axillary pain, left [...] breath since last night. 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 AR: VALERY Report ID: [id number] Reading Location: [id number] Procedure Note Juve Gallegos MD - 07/01/2024 [...] Juve Gallegos M.D. AR: VALERY Report ID: [id number] Reading Location: [id number] Lila MCKEON IMG CT PROCEDURES Final Resu lt * (ABNORMAL) Troponin T high-sensitivity 2-hour (07/01/2024 3:43 PM CDT) Trop T hs 27(H) <=14 ng/L Comment: Interpretive Data For further hscTnT resources including the diagnostic algorithm and an aid in interpretation, copy and paste this link: https://nrl.testcatalog.org/show/hsTrop Current Interpretive Data last revised 2020. Testing performed by: [address] [address] Trop T hs delta 0 ng/L MARY JANE PHAM Comment:Testing performed by : [address] [address] Trop T hs interp Insignificant MARY JANE PHAM Comment:Testing performed by : [address] [address] Blood 07/01/2024 3:43 PM CDT 07/01/2024 3:52 PM CDT Ilana Stevens MD LAB BLOOD ORDERABLES F inal Result MARY JANE [address] [facility] Department [place] [address] * (ABNORMAL) Urinalysis reflex to microscopic and culture Urine (07/01/2024 3:43 PM CDT) Color, ur Yellow Yellow Comment:Testing performed by : [address] [address] Clarity, ur Clear Clear MARY JANE Comment:Testing performed by : [address] [address] Specific gravity, ur 1.020 1.003 - 1.030 MARY JANE Comment:Testing performed by : [address] [address] pH, urine 6.0 MARY JANE Comment: Interpretive Data U rine pH is affected by diet, medications, systemic acid-base disturbances, and renal tubular function. pH may affect urinary stone formation. For example, urine pH below 6.0 may help reduce the tendency for calcium phosphate stones and pH greater than 6.0 may reduce the tendency for uric acid stone formation. Source: [facility] [employer] Current Interpretive Data was last revised on 2017 Testing performed by: [address] [address] Protein, ur ql Negative Negative MARY JANE Comment:Testing performed by : [address] [address] Glucose, ur ql 2+(A) Negative MARY JANE PHAM Comment:Testing performed by : [address] [address] Ketones, ur Negative Negative MARY JANE Comment:Testing performed by : [address] [address] Bilirubin, ur Negative Negative MARY JANE PHAM Comment:Testing performed by : [address] [address] Blood, ur Trace(A) Negative MARY JANE PHAM Comment:Testing performed by : [address] [address] Urobilinogen, ur <2.0 <2.0 mg/dL MARY JANE PHAM Comment:Testing performed by : [address] [address] Nitrite, ur Negative Negative MARY JANE PHAM Comment:Testing performed by : [address], [place]., [address] Leukocyte esterase, ur Negative Negative MARY JANE PHAM Comment:Testing performed by : [address] [address] UA reflex comment Reflex to microscopic UA will be performed. MARY JANE PHAM Comment:Testing performed by : [address] [address] Urine 07/01/2024 3:43 PM CDT 07/01/2024 3:52 PM CDT us Ilana Stevens MD LAB MICROBIOLOGY - GEN ERAL ORDERABLES Final Result MARY JANE [address] [facility] Department of Laboratories [place], [place] [id number] * (ABNORMAL) Urinalysis, microscopic only (07/01/2024 3:43 PM CDT) WBC, ur 0-5 0 - 5 /HPF Comment:Testing performed by : [address] [address] RBC, ur 3-5(A) 0 - 2 /HPF MARY JANE PHAM Comment:Testing performed by : [address] [address] Epithelial cells, squamous, ur 1-5 0 - 5 /HPF MARY JANE PHAM Comment:Testing performed by : [address], [place]., [address] Mucous, ur Present(A) MARY JANE PHAM Comment:Testing performed by : [address], [place]., [address] Culture Reflex Comment Reflex conditions for urine culture (WBC >10) not met. MARY JANE PHAM Comment:Testing performed by : [address] [address] Urine 07/01/2024 3:43 PM CDT 07/01/2024 3:52 PM CDT us Ilana Stevens MD LAB URINE ORDERABLES F inal Result MARY JANE HPAM [address] [facility] Department [place] [address] * XR Chest 1 Vw Portable (if [...] Romelia Bowen D.O. PS: PS Report ID: [id number] Reading Location: [id number] Procedure Note Romelia Bowen DO - 07/01/2024 [...] Romelia Bowen D.O. PS: PS Report ID: [id number] Reading Location: [place] [address] us Ilana Stevens MD IMG XR PROCEDURES Deann l Result * ECG 12 lead (07/01/2024 2:05 PM CDT) Ventricular Rate EKG/Min [address] [facility] Atrial Rate 76 BPM [facility] VT-Interval (MSEC) [address] [facility] QRS-Interval (MSEC) 86 ms [facility] QT-Interval (MSEC) 386 ms [facility] QTc 434 ms [facility] P [place] 26 degrees [facility] R [place] 22 degrees [facility] T [place] 46 degrees [facility] Diagnosis Normal sinus rhythm Normal ECG When compared with ECG of 28-DEC-2023 12:49, No significant change was found Confirmed by DUTCH BURGOS M.D. ([id number]) on 07/01/2024 10:10:22 PM [facility] 07/01/2024 2:05 PM CDT 07/01/2024 10:10 PM CDT Ilana Stevens MD ECG ORDERABLES Final Result [facility] * (ABNORMAL) Troponin T high-sensitivity series (baseline, 2hr, 4hr, 6hr) (07/01/2024 2:02 PM CDT) Trop T hs 27(H) <=14 ng/L Comment: Interpretive Data For further hscTnT resources including the diagnostic algorithm and an aid in interpretation, copy and paste this link: https://nrl.testcatalog.org/show/hsTrop Current Interpretive Data last revised 2020. Testing performed by: [address] [address] Blood 07/01/2024 2:02 PM CDT 07/01/2024 2:12 PM CDT Ilana Stevens MD LAB BLOOD ORDERABLES F inal Result [place] [address] [facility] Department [place] [address] * Influenza A/B, RSV, and COVID-19 PCR Nasopharyngeal (07/01/2024 2:02 PM CDT) Pathologist [facility] COVID-19 RNA Negative Negative Comment:Testing performed by : [address] [address] Influenza A RNA Negative Negative MARY JANE Comment:Testing performed by : [address] [address] Influenza B RNA Negative Negative MARY JANE Comment:Testing performed by : [address] [address] RSV RNA Negative Negative [facility] Comment: Interpretive data: Testing performed by [facility]. This test is performed using the [place] Self Representation Document Preparation Xpert Xpress CoV-2/Flu/RSV plus assay. This is a multiplex, real-time reverse transcriptase PCR assay intended for the qualitative detection of nucleic acid from SARS-CoV-2, influenza A, influenza B, and respiratory syncytial virus. This assay has been cleared by the [place] Food and Drug administration. The performance characteristics have been verified by the [facility]. Results must be considered in the clinical context, and a negative result does not rule out infection. Interpretive Data last revised 2023 Testing performed by: [facility], [address] [place] [address]., [address] Nasopharyngeal 07/01/2024 2: 02 PM CDT 07/01/2024 2:12 PM CDT Narrative MARY JANE - 07/01/2024 2:52 PM CDT Is the Patient experiencing symptoms consistent with COVID?->Yes us Ilana Stevens MD LAB MICROBIOLOGY - GEN ERAL ORDERABLES Final Result Performing Organization Address City/[facility] Co de Phone Number MARY JANE [address] [facility] Department [place] [address] * eGFR (07/01/2024 2:02 PM [...] was last reviewed 2021. Testing performed by: [facility], [address] [place] [address]., [address] Blood 07/01/2024 2:02 PM CDT 07/01/2024 2:12 PM CDT Ilana Stevens MD LAB BLOOD ORDERABLES F inal Result MARY JANE [address] [facility] Department [place] [address] * Differential, auto (07/01/2024 2:02 PM CDT) Neutrophil abs 5.3 1.5 - 6.5 K/cumm Comment:Testing performed by : [address] [address] Imm gran abs 0.0 0.0 - 0.1 K/cumm MARY JANE Comment:Testing performed by : [address] [address] Lymphocyte abs 2.6 0.8 - 3.3 K/cumm MARY JANE Comment:Testing performed by : [address] [address] Monocyte abs 0.8 0.2 - 0.8 K/cumm MARY JANE Comment:Testing performed by : [address] [address] Eosinophil abs 0.2 0.0 - 0.5 K/cumm MARY JANE Comment:Testing performed by : [address] [address] Basophil abs 0.0 0.0 - 0.1 K/cumm MARY JANE Comment:Testing performed by : [address] [address] Neutrophil pct 59.1 % MARY JANE Comment: Interpretive Data Percent cell count reference ranges are not reported, since discordance with absolute values may lead to misinterpretation of CBC data. Current Interpretive Data was last revised on 2017. Testing performed by: [address] [address] Imm gran pct 0.2 % MARY JANE Comment: Interpretive Data Percent cell count reference ranges are not reported, since discordance with absolute values may lead to misinterpretation of CBC data. Current Interpretive Data was last revised on 2017. Testing performed by: [address] [address] Lymphocyte pct 29.0 % MARY JANE Comment: Interpretive Data Percent cell count reference ranges are not reported, since discordance with absolute values may lead to misinterpretation of CBC data. Current Interpretive Data was last revised on 2017. Testing performed by: [address] [address] Monocyte pct 9.3 % [facility] Comment: Interpretive Data Percent cell count reference ranges are not reported, since discordance with absolute values may lead to misinterpretation of CBC data. Current Interpretive Data was last revised on 2017. Testing performed by: [address] [address] Eosinophil pct 2.2 % [facility] Comment: Interpretive Data Percent cell count reference ranges are not reported, since discordance with absolute values may lead to misinterpretation of CBC data. Current Interpretive Data was last revised on 2017. Testing performed by: [address] [address] Basophil pct 0.2 % [facility] Comment: Interpretive Data Percent cell count reference ranges are not reported, since discordance with absolute values may lead to misinterpretation of CBC data. Current Interpretive Data was last revised on 2017. Testing performed by: [address] [address] Blood 07/01/2024 2:02 PM CDT 07/01/2024 2:12 PM CDT us Ilana Stevens MD LAB BLOOD ORDERABLES F inal Result [facility] [address] [facility] Department [place] [address] * Pro B-type natriuretic peptide (07/01/2024 2:02 [...] Last Revised Date: 2017. Testing performed by: [address] [address] Blood 07/01/2024 2:02 PM CDT 07/01/2024 2:12 PM CDT us Ilana Stevens MD LAB BLOOD ORDERABLES F inal Result MARY JANE [address] [facility] Department [place] [address] * (ABNORMAL) CBC with auto differential (07/01/2024 2:02 PM CDT) [facility] WBC 9.0 3.8 - 9.9 K/cumm Comment:Testing performed by : [address] [address] Hgb 13.2 11.9 - 15.5 g/dL MARY JANE PHAM Comment:Testing performed by : [address] [address] Hct 41.1 35.6 - 45.5 % MARY JANE PHAM Comment:Testing performed by : [address] [address] Plt 277 150 - 400 K/cumm MARY JANE PHAM Comment:Testing performed by : [address] [address] MPV 9.5 9.1 - 12.3 fL MARY JANE PHAM Comment:Testing performed by : [address] [address] RBC 4.53 3.90 - 5.20 M/cumm MARY JANE PHAM Comment:Testing performed by : [address] [address] MCV 90.7 81.3 - 96.4 fL MARY JANE PAHM Comment:Testing performed by : [address] [address] MCH 29.1 27.1 - 33.3 pg MARY JANE PHAM Comment:Testing performed by : [address] [address] MCHC 32.1(L) 32.3 - 35.7 g/dL MARY JANE Comment:Testing performed by : [address] [address] RDW CV 13.2 11.1 - 14.9 % MARY JANE Comment:Testing performed by : [address] [address] RDW SD 44.2 35.7 - 48.1 fL MARY JANE PHAM Comment:Testing performed by : [address] [address] NRBC abs 0.00 0.00 - 0.01 K/cumm MARY JANE Comment:Testing performed by : [address] [address] Blood 07/01/2024 2:02 PM CDT 07/01/2024 2:12 PM CDT us Ilana Stevens MD LAB BLOOD ORDERABLES F inal Result [facility] [address] [facility] Department [place] [address] * Comprehensive metabolic panel (07/01/2024 2:02 PM CDT) Sodium 137 135 - 145 mmol/L Comment:Testing performed by : [address] [address] Potassium, pl 4.2 3.3 - 4.9 mmol/L MARY JANE Comment:Testing performed by : [address], [place]., [address] Chloride 101 97 - 110 mmol/L MARY JANE Comment:Testing performed by : [address], [place]., [address] CO2 27 22 - 32 mmol/L MARY JANE Comment:Testing performed by : [address], [place]., [address] Anion gap 9 2 - 15 mmol/L MARY JANE Comment:Testing performed by : [address], [place]., [address] BUN 15 6 - 25 mg/dL MARY JANE Comment:Testing performed by : [address] [address] Creatinine 0.60 0.60 - 1.10 mg/dL MARY JANE Comment:Testing performed by : [address] [address] Glucose 166 70 - 199 mg/dL [facility] Comment: Interpretive Data Fasting glucose [...] was last revised 2022. Testing performed by: [address] [address] Calcium 9.8 8.5 - 10.3 mg/dL MARY JANE Comment:Testing performed by : [address], [place]., [address] Bilirubin, total 0.5 0.1 - 1.2 mg/dL MARY JANE Comment:Testing performed by : [address] [address] Protein, pl 8.0 6.5 - 8.5 g/dL MARY JANE Comment:Testing performed by : [facility], [address] [place] [address]., [address] Albumin 3.8 3.5 - 5.0 g/dL MARY JANE Comment:Testing performed by : [address] [address] Alk phos 72 40 - 130 Units/L MARY JANE Comment:Testing performed by : [address] [address] ALT 19 7 - 45 Units/L MARY JANE Comment:Testing performed by : [address] [address] AST 23 10 - 45 Units/L MARY JANE Comment:Testing performed by : [address] [address] Blood 07/01/2024 2:02 PM CDT 07/01/2024 2:12 PM CDT us Ilana Stevens MD LAB BLOOD ORDERABLES F inal Result [address] Department [place] [address] * POCT glucose (05/26/2024 4:27 PM ELECTRICIAN SECOND) Glucose, POC 137 70 - 199 mg/dL Blood 05/26/2024 4:27 PM ELECTRICIAN SECOND 05/26/2024 4:27 PM ELECTRICIAN SECOND us Carlos Real MD LAB POCT ORDERABLES - DEVICE Fin al Result [facility] Department [place] [address] * POCT glucose (05/26/2024 11:38 AM ELECTRICIAN SECOND) Glucose, POC 146 70 - 199 mg/dL Blood 05/26/2024 11:3 8 AM ELECTRICIAN SECOND 05/26/2024 11:38 AM ELECTRICIAN SECOND Carlos Real MD LAB POCT ORDERABLES - DEVICE Fin al Result Performing Organization Address [facility] de Phone Number [facility] [employer] [place] [address] * POCT glucose (05/26/2024 8:12 AM ELECTRICIAN SECOND) Glucose, POC 134 70 - 199 mg/dL Blood 05/26/2024 8:12 AM ELECTRICIAN SECOND 05/26/2024 8:12 AM ELECTRICIAN SECOND Carlos Real MD LAB POCT ORDERABLES - DEVICE Fin al Result Performing Organization Address [facility] de Phone Number [facility] [place] [employer] [place] [address] * eGFR (05/26/2024 12:05 AM ELECTRICIAN SECOND) eGFR >90 >=60 mL/min/1. 73 m2 Comment: [...] reviewed 2021. Blood 05/26/2024 12:0 5 AM ELECTRICIAN SECOND 05/26/2024 12:23 AM ELECTRICIAN SECOND us Carlos Real MD LAB BLOOD ORDERABLES Final Resul t [facility] Department [place] [address] * (ABNORMAL) Differential, auto (05/26/2024 12:05 AM ELECTRICIAN SECOND) Neutrophil abs 6.4 1.5 - 6.5 K/cumm Imm gran abs 0.0 0.0 - 0.1 K/cumm [facility] Lymphocyte abs 2.9 0.8 - 3.3 K/cumm [facility] Monocyte abs 0.9(H) 0.2 - 0.8 K/cumm [facility] Eosinophil abs 0.3 0.0 - 0.5 K/cumm [facility] Basophil abs 0.0 0.0 - 0.1 K/cumm [facility] Neutrophil pct 60.4 % [facility] Comment: Interpretive Data Percent cell count reference ranges are not reported, since discordance with absolute values may lead to misinterpretation of CBC data. Current Interpretive Data was last revised on 2017. Imm gran pct 0.4 % [facility] Comment: Interpretive Data Percent cell count reference ranges are not reported, since discordance with absolute values may lead to misinterpretation of CBC data. Current Interpretive Data was last revised on 2017. Lymphocyte pct 27.5 % [facility] Comment: Interpretive Data Percent cell count reference ranges are not reported, since discordance with absolute values may lead to misinterpretation of CBC data. Current Interpretive Data was last revised on 2017. Monocyte pct 8.2 % [facility] Comment: Interpretive Data Percent cell count reference ranges are not reported, since discordance with absolute values may lead to misinterpretation of CBC data. Current Interpretive Data was last revised on 2017. Eosinophil pct 3.1 % [facility] Comment: Interpretive Data Percent cell count reference ranges are not reported, since discordance with absolute values may lead to misinterpretation of CBC data. Current Interpretive Data was last revised on 2017. Basophil pct 0.4 % [facility] Comment: Interpretive Data Percent cell count reference ranges are not reported, since discordance with absolute values may lead to misinterpretation of CBC data. Current Interpretive Data was last revised on 2017. Blood 05/26/2024 12:0 5 AM ELECTRICIAN SECOND 05/26/2024 12:07 AM ELECTRICIAN SECOND Carlos Real MD LAB BLOOD ORDERABLES Final Resul t Performing Organization Address City/[facility]/ZIP Co de Phone Number [facility] Department [place] [address] * (ABNORMAL) CBC with auto differential (05/26/2024 12:05 AM ELECTRICIAN SECOND) WBC 10.6(H) 3.8 - 9.9 K/cumm Hgb 12.5 11.9 - 15.5 g/dL [facility] Hct 39.2 35.6 - 45.5 % [facility] Plt 248 150 - 400 K/cumm [facility] MPV 9.7 9.1 - 12.3 fL [facility] RBC 4.32 3.90 - 5.20 M/cumm [facility] MCV 90.7 81.3 - 96.4 fL [facility] MCH 28.9 27.1 - 33.3 pg [facility] MCHC 31.9(L) 32.3 - 35.7 g/dL [facility] RDW CV 13.5 11.1 - 14.9 % [facility] RDW SD 45.1 35.7 - 48.1 fL [facility] NRBC abs 0.00 0.00 - 0.01 K/cumm [facility] Blood 05/26/2024 12:0 5 AM ELECTRICIAN SECOND 05/26/2024 12:07 AM ELECTRICIAN SECOND Carlos Real MD LAB BLOOD ORDERABLES Final Resul t Performing Organization Address City/[facility]/ZIP Co de Phone Number [facility] Department [place] [address] * Phosphorus (05/26/2024 12:05 AM ELECTRICIAN SECOND) Pathologist [facility] Phosphorus, pl 3.2 2.3 - 4.5 mg/dL Blood 05/26/2024 12:0 5 AM ELECTRICIAN SECOND 05/26/2024 12:08 AM ELECTRICIAN SECOND Carlos Real MD LAB BLOOD ORDERABLES Final Resul t [facility] [place] [address] * Magnesium (05/26/2024 12:05 AM ELECTRICIAN SECOND) [facility] Magnesium 1.8 1.4 - 2.5 mg/dL Blood 05/26/2024 12:0 5 AM ELECTRICIAN SECOND 05/26/2024 12:08 AM ELECTRICIAN SECOND Carlos Real MD LAB BLOOD ORDERABLES Final Resul t Performing Organization Address City/[facility] Co de Phone Number [facility] [place] [address] * (ABNORMAL) Comprehensive metabolic panel (05/26/2024 12:05 AM ELECTRICIAN SECOND) Pathologist [facility] Sodium 136 135 - 145 mmol/L Potassium, pl 4.2 3.3 - 4.9 mmol/L [facility] Chloride 101 97 - 110 mmol/L [facility] CO2 29 22 - 32 mmol/L [facility] Anion gap 6 2 - 15 mmol/L [facility] BUN 19 6 - 25 mg/dL [facility] Creatinine 0.67 0.60 - 1.10 mg/dL [facility] Glucose 164 70 - 199 mg/dL [facility] Calcium 9.4 8.5 - 10.3 mg/dL [facility] Bilirubin, total 0.4 0.1 - 1.2 mg/dL [facility] Protein, pl 7.1 6.5 - 8.5 g/dL [facility] Albumin 3.3(L) 3.5 - 5.0 g/dL [facility] Alk phos 65 40 - 130 Units/L [facility] ALT 17 7 - 45 Units/L [facility] AST 19 10 - 45 Units/L [facility] Blood 05/26/2024 12:0 5 AM ELECTRICIAN SECOND 05/26/2024 12:08 AM ELECTRICIAN SECOND Carlos Real MD LAB BLOOD ORDERABLES Final Resul t Performing Organization Address City/[facility]/ZIP Co de Phone Number [facility] Department [place] [employer] [place] [address] * POCT glucose (05/25/2024 7:44 PM ELECTRICIAN SECOND) Glucose, POC 160 70 - 199 mg/dL Blood 05/25/2024 7:44 PM ELECTRICIAN SECOND 05/25/2024 7:44 PM ELECTRICIAN SECOND Carlos Real MD LAB POCT ORDERABLES - DEVICE Fin al Result Performing Organization Address City/[facility]/ZIP Co de Phone Number [facility] [place] [employer] [place] [address] * POCT glucose (05/25/2024 5:24 PM ELECTRICIAN SECOND) Glucose, POC 152 70 - 199 mg/dL Blood 05/25/2024 5:24 PM ELECTRICIAN SECOND 05/25/2024 5:24 PM ELECTRICIAN SECOND Carlos Real MD LAB POCT ORDERABLES - DEVICE Fin al Result Performing Organization Address [facility] de Phone Number [facility] [place] [employer] [place] [address] * POCT glucose (05/25/2024 11:37 AM ELECTRICIAN SECOND) Glucose, POC 143 70 - 199 mg/dL Blood 05/25/2024 11:3 7 AM ELECTRICIAN SECOND 05/25/2024 11:37 AM ELECTRICIAN SECOND Carlos Real MD LAB POCT ORDERABLES - DEVICE Fin al Result Performing Organization Address [facility] de Phone Number [facility] [place] [address] * POCT glucose (05/25/2024 7:27 AM ELECTRICIAN SECOND) Glucose, POC 134 70 - 199 mg/dL Blood 05/25/2024 7:27 AM ELECTRICIAN SECOND 05/25/2024 7:27 AM ELECTRICIAN SECOND Carlos Real MD LAB POCT ORDERABLES - DEVICE Fin al Result Performing Organization Address [facility] de Phone Number [facility] [place] [employer] [place] [address] * eGFR (05/25/2024 12:20 AM ELECTRICIAN SECOND) eGFR >90 >=60 mL/min/1. 73 m2 Comment: [...] reviewed 2021. Blood 05/25/2024 12:2 0 AM ELECTRICIAN SECOND 05/25/2024 12:43 AM ELECTRICIAN SECOND us Naila Guzman NP LAB BLOOD ORDERABLES Final Result [facility] Department [place] [address] * Differential, auto (05/25/2024 12:20 AM ELECTRICIAN SECOND) Neutrophil abs 5.9 1.5 - 6.5 K/cumm Imm gran abs 0.0 0.0 - 0.1 K/cumm [facility] Lymphocyte abs 2.4 0.8 - 3.3 K/cumm [facility] Monocyte abs 0.8 0.2 - 0.8 K/cumm [facility] Eosinophil abs 0.3 0.0 - 0.5 K/cumm [facility] Basophil abs 0.0 0.0 - 0.1 K/cumm [facility] Neutrophil pct 62.6 % [facility] Comment: Interpretive Data Percent cell count reference ranges are not reported, since discordance with absolute values may lead to misinterpretation of CBC data. Current Interpretive Data was last revised on 2017. Imm gran pct 0.3 % [facility] Comment: Interpretive Data Percent cell count reference ranges are not reported, since discordance with absolute values may lead to misinterpretation of CBC data. Current Interpretive Data was last revised on 2017. Lymphocyte pct 24.8 % [facility] Comment: Interpretive Data Percent cell count reference ranges are not reported, since discordance with absolute values may lead to misinterpretation of CBC data. Current Interpretive Data was last revised on 2017. Monocyte pct 8.8 % [facility] Comment: Interpretive Data Percent cell count reference ranges are not reported, since discordance with absolute values may lead to misinterpretation of CBC data. Current Interpretive Data was last revised on 2017. Eosinophil pct 3.2 % [facility] Comment: Interpretive Data Percent cell count reference ranges are not reported, since discordance with absolute values may lead to misinterpretation of CBC data. Current Interpretive Data was last revised on 2017. Basophil pct 0.3 % [facility] Comment: Interpretive Data Percent cell count reference ranges are not reported, since discordance with absolute values may lead to misinterpretation of CBC data. Current Interpretive Data was last revised on 2017. Blood 05/25/2024 12:2 0 AM ELECTRICIAN SECOND 05/25/2024 12:29 AM ELECTRICIAN SECOND us Naila Guzman PUBLICITY DIRECTOR LAB BLOOD ORDERABLES Final Result [facility] Department [place] [address] * (ABNORMAL) CBC with auto differential (05/25/2024 12:20 AM ELECTRICIAN SECOND) WBC 9.5 3.8 - 9.9 K/cumm Hgb 12.8 11.9 - 15.5 g/dL [facility] Hct 40.0 35.6 - 45.5 % [facility] Plt 246 150 - 400 K/cumm [facility] MPV 9.8 9.1 - 12.3 fL [facility] RBC 4.42 3.90 - 5.20 M/cumm [facility] MCV 90.5 81.3 - 96.4 fL [facility] MCH 29.0 27.1 - 33.3 pg [facility] MCHC 32.0(L) 32.3 - 35.7 g/dL [facility] RDW CV 13.5 11.1 - 14.9 % [facility] RDW SD 45.3 35.7 - 48.1 fL [facility] NRBC abs 0.00 0.00 - 0.01 K/cumm [facility] Blood 05/25/2024 12:2 0 AM ELECTRICIAN SECOND 05/25/2024 12:29 AM ELECTRICIAN SECOND Naila Guzman NP LAB BLOOD ORDERABLES Final Result Performing Organization Address [facility] de Phone Number [facility] [employer] [place] [address] * Phosphorus (05/25/2024 12:20 AM ELECTRICIAN SECOND) [facility] Phosphorus, pl 3.1 2.3 - 4.5 mg/dL Blood 05/25/2024 12:2 0 AM ELECTRICIAN SECOND 05/25/2024 12:29 AM ELECTRICIAN SECOND Naila Guzman NP LAB BLOOD ORDERABLES Final Result Performing Organization Address [facility] de Phone Number [facility] [employer] [place] [address] * Magnesium (05/25/2024 12:20 AM ELECTRICIAN SECOND) [facility] Magnesium 1.9 1.4 - 2.5 mg/dL Blood 05/25/2024 12:2 0 AM ELECTRICIAN SECOND 05/25/2024 12:29 AM ELECTRICIAN SECOND Naila Guzman NP LAB BLOOD ORDERABLES Final Result Performing Organization Address [facility] [place] [address] * (ABNORMAL) Comprehensive metabolic panel (05/25/2024 12:20 AM ELECTRICIAN SECOND) [facility] Sodium 138 135 - 145 mmol/L Potassium, pl 4.4 3.3 - 4.9 mmol/L [facility] Chloride 101 97 - 110 mmol/L [facility] CO2 29 22 - 32 mmol/L [facility] Anion gap 8 2 - 15 mmol/L [facility] BUN 20 6 - 25 mg/dL [facility] Creatinine 0.69 0.60 - 1.10 mg/dL [facility] Glucose 156 70 - 199 mg/dL [facility] 2022. Calcium 9.4 8.5 - 10.3 mg/dL [facility] Bilirubin, total 0.5 0.1 - 1.2 mg/dL [facility] Protein, pl 7.4 6.5 - 8.5 g/dL [facility] Albumin 3.4(L) 3.5 - 5.0 g/dL [facility] Alk phos 67 40 - 130 Units/L [facility] ALT 18 7 - 45 Units/L [facility] AST 16 10 - 45 Units/L [facility] Blood 05/25/2024 12:2 0 AM ELECTRICIAN SECOND 05/25/2024 12:29 AM ELECTRICIAN SECOND us Naila Guzman NP LAB BLOOD ORDERABLES Final Result Performing Organization Address [facility] Co de Phone Number [facility] [place] [address] * POCT glucose (05/24/2024 8:13 PM ELECTRICIAN SECOND) [facility] Signature Glucose, POC 171 70 - 199 mg/dL Blood 05/24/2024 8:13 PM ELECTRICIAN SECOND 05/24/2024 8:13 PM ELECTRICIAN SECOND us Carlos Real MD LAB POCT ORDERABLES - DEVICE Fin al Result [facility] [employer] [place] [address] * POCT glucose (05/24/2024 5:17 PM ELECTRICIAN SECOND) Glucose, POC 133 70 - 199 mg/dL Blood 05/24/2024 5:17 PM ELECTRICIAN SECOND 05/24/2024 5:17 PM ELECTRICIAN SECOND Carlos Real MD LAB POCT ORDERABLES - DEVICE Fin al Result Performing Organization Address [facility] [place] [address] * POCT glucose (05/24/2024 12:49 PM ELECTRICIAN SECOND) Glucose, POC 180 70 - 199 mg/dL Blood 05/24/2024 12:4 9 PM ELECTRICIAN SECOND 05/24/2024 12:49 PM ELECTRICIAN SECOND Carlos Real MD LAB POCT ORDERABLES - DEVICE Fin al Result Performing Organization Address [facility] de Phone Number [facility] [employer] [place] [address] * POCT glucose (05/24/2024 9:22 AM ELECTRICIAN SECOND) Glucose, POC 139 70 - 199 mg/dL Blood 05/24/2024 9:22 AM ELECTRICIAN SECOND 05/24/2024 9:22 AM ELECTRICIAN SECOND Carlos Real MD LAB POCT ORDERABLES - DEVICE Fin al Result Performing Organization Address [facility] [place] [address] * Herpes Simplex Virus (HSV) PCR Oral (05/24/2024 8:47 AM ELECTRICIAN SECOND) HSV DNA Not Detected Not Detected [facility] Comment: Interpretive Data This assay is [...] reviewed on 08/21/2018 Oral 05/24/2024 8:47 AM ELECTRICIAN SECOND 05/24/2024 9:24 AM ELECTRICIAN SECOND Narrative [facility] - 05/24/2024 4:28 PM ELECTRICIAN SECOND Oral ulcer swab Naila Guzman NP LAB MICROBIOLOGY - GENERAL ORDERABLES Final Result Performing Organization Address [facility]/ZIP Co de Phone Number [facility] Department [place] [address] [facility] * POCT glucose (05/24/2024 8:22 AM ELECTRICIAN SECOND) [facility] Glucose, POC 132 70 - 199 mg/dL Blood 05/24/2024 8:22 AM ELECTRICIAN SECOND 05/24/2024 8:22 AM ELECTRICIAN SECOND Carlos Real MD LAB POCT ORDERABLES - DEVICE Fin al Result Performing Organization Address [facility] Co de Phone Number [facility] Department [place] [address] * eGFR (05/24/2024 12:29 AM ELECTRICIAN SECOND) [facility] eGFR 87 >=60 mL/min/1. 73 m2 [...] reviewed 2021. Blood 05/24/2024 12:2 9 AM ELECTRICIAN SECOND 05/24/2024 12:54 AM ELECTRICIAN SECOND us Naila Guzman NP LAB BLOOD ORDERABLES Final Result [facility] Department [place] [address] * (ABNORMAL) Differential, auto (05/24/2024 12:29 AM ELECTRICIAN SECOND) Neutrophil abs 5.3 1.5 - 6.5 K/cumm Imm gran abs 0.0 0.0 - 0.1 K/cumm [facility] Lymphocyte abs 3.0 0.8 - 3.3 K/cumm [facility] Monocyte abs 0.9(H) 0.2 - 0.8 K/cumm [facility] Eosinophil abs 0.3 0.0 - 0.5 K/cumm [facility] Basophil abs 0.0 0.0 - 0.1 K/cumm [facility] Neutrophil pct 55.8 % [facility] Comment: Interpretive Data Percent cell count reference ranges are not reported, since discordance with absolute values may lead to misinterpretation of CBC data. Current Interpretive Data was last revised on 2017. Imm gran pct 0.4 % [facility] Comment: Interpretive Data Percent cell count reference ranges are not reported, since discordance with absolute values may lead to misinterpretation of CBC data. Current Interpretive Data was last revised on 2017. Lymphocyte pct 31.4 % [facility] Comment: Interpretive Data Percent cell count reference ranges are not reported, since discordance with absolute values may lead to misinterpretation of CBC data. Current Interpretive Data was last revised on 2017. Monocyte pct 9.0 % [facility] Comment: Interpretive Data Percent cell count reference ranges are not reported, since discordance with absolute values may lead to misinterpretation of CBC data. Current Interpretive Data was last revised on 2017. Eosinophil pct 3.0 % [facility] Comment: Interpretive Data Percent cell count reference ranges are not reported, since discordance with absolute values may lead to misinterpretation of CBC data. Current Interpretive Data was last revised on 2017. Basophil pct 0.4 % [facility] Comment: Interpretive Data Percent cell count reference ranges are not reported, since discordance with absolute values may lead to misinterpretation of CBC data. Current Interpretive Data was last revised on 2017. Blood 05/24/2024 12:2 9 AM ELECTRICIAN SECOND 05/24/2024 12:54 AM ELECTRICIAN SECOND us Naila Guzman PUBLICITY DIRECTOR LAB BLOOD ORDERABLES Final Result [facility] Department [place] [address] * CBC with auto differential (05/24/2024 12:29 AM ELECTRICIAN SECOND) WBC 9.5 3.8 - 9.9 K/cumm Hgb 12.6 11.9 - 15.5 g/dL [facility] Hct 39.0 35.6 - 45.5 % [facility] Plt 223 150 - 400 K/cumm [facility] MPV 9.6 9.1 - 12.3 fL [facility] RBC 4.23 3.90 - 5.20 M/cumm [facility] MCV 92.2 81.3 - 96.4 fL [facility] MCH 29.8 27.1 - 33.3 pg [facility] MCHC 32.3 32.3 - 35.7 g/dL [facility] RDW CV 13.7 11.1 - 14.9 % [facility] CAMPUS RDW SD 46.5 35.7 - 48.1 fL [facility] NRBC abs 0.00 0.00 - 0.01 K/cumm [facility] Blood 05/24/2024 12:2 9 AM ELECTRICIAN SECOND 05/24/2024 12:54 AM ELECTRICIAN SECOND Naila Guzman NP LAB BLOOD ORDERABLES Final Result Performing Organization Address City/[facility] Co de Phone Number [facility] [employer] [place] [address] * Phosphorus (05/24/2024 12:29 AM ELECTRICIAN SECOND) Pathologist [facility] Phosphorus, pl 3.6 2.3 - 4.5 mg/dL Blood 05/24/2024 12:2 9 AM ELECTRICIAN SECOND 05/24/2024 12:54 AM ELECTRICIAN SECOND Naila Guzman NP LAB BLOOD ORDERABLES Final Result Performing Organization Address [facility] de Phone Number [facility] [employer] [place] [address] * Magnesium (05/24/2024 12:29 AM ELECTRICIAN SECOND) Pathologist [facility] Magnesium 1.9 1.4 - 2.5 mg/dL Blood 05/24/2024 12:2 9 AM ELECTRICIAN SECOND 05/24/2024 12:54 AM ELECTRICIAN SECOND Naila Guzman NP LAB BLOOD ORDERABLES Final Result Performing Organization Address [facility] de Phone Number [facility] [employer] [place] [address] * (ABNORMAL) Comprehensive metabolic panel (05/24/2024 12:29 AM ELECTRICIAN SECOND) Pathologist [facility] Sodium 139 135 - 145 mmol/L Potassium, pl 4.3 3.3 - 4.9 mmol/L [facility] Chloride 103 97 - 110 mmol/L [facility] CO2 29 22 - 32 mmol/L [facility] Anion gap 7 2 - 15 mmol/L [facility] BUN 19 6 - 25 mg/dL [facility] Creatinine 0.75 0.60 - 1.10 mg/dL [facility] Glucose 157 70 - 199 mg/dL [facility] 2022. Calcium 9.2 8.5 - 10.3 mg/dL [facility] Bilirubin, total 0.4 0.1 - 1.2 mg/dL [facility] Protein, pl 7.1 6.5 - 8.5 g/dL [facility] Albumin 3.3(L) 3.5 - 5.0 g/dL [facility] Alk phos 65 40 - 130 Units/L [facility] ALT 18 7 - 45 Units/L [facility] AST 17 10 - 45 Units/L [facility] Blood 05/24/2024 12:2 9 AM ELECTRICIAN SECOND 05/24/2024 12:54 AM ELECTRICIAN SECOND us Naila Guzman NP LAB BLOOD ORDERABLES Final Result [facility] Department [place] [address] * POCT glucose (05/23/2024 8:16 PM ELECTRICIAN SECOND) Glucose, POC 145 70 - 199 mg/dL Blood 05/23/2024 8:16 PM ELECTRICIAN SECOND 05/23/2024 8:16 PM ELECTRICIAN SECOND Carlos Real MD LAB POCT ORDERABLES - DEVICE Fin al Result Performing Organization Address [facility] [place] [address] * POCT glucose (05/23/2024 6:14 PM ELECTRICIAN SECOND) Glucose, POC 181 70 - 199 mg/dL Blood 05/23/2024 6:14 PM ELECTRICIAN SECOND 05/23/2024 6:14 PM ELECTRICIAN SECOND Carlos Real MD LAB POCT ORDERABLES - DEVICE Fin al Result Performing Organization Address [facility] [place] [address] * POCT glucose (05/23/2024 12:17 PM ELECTRICIAN SECOND) Glucose, POC 159 70 - 199 mg/dL Blood 05/23/2024 12:1 7 PM ELECTRICIAN SECOND 05/23/2024 12:17 PM ELECTRICIAN SECOND Cem Knapp MD LAB POCT ORDERABLES - DEVIC E Final Result Performing Organization Address [facility] [place] [address] * US Vein Duplex Lower Extremity Bilateral Complete (05/23/2024 11:45 AM ELECTRICIAN SECOND) LV EF % CONS SCIMAGE Anatomical Region Laterality Modality Vascular Bilateral Ultrasound 05/23/2024 11:1 2 AM ELECTRICIAN SECOND Narrative 05/23/2024 9:43 PM ELECTRICIAN SECOND [facility] - Department of Vascular Surgery, Vascular Laboratory [address] [place] [id number] Lower Extremity Venous Ultrasound Report Patient Name: MOHSEN MARQUES M : 1955 (68y 11m) Study Date: 05/23/2024 11:12:03 AM Gender: F Tech: VELVET Location: [id number] Ref Provider: CARLOS REAL Quality: Adequate Order Provider: CARLOS REAL PROCEDURES: Vascular Report: Venous Duplex imaging was performed bilaterally in the lower extremities. The common femoral, femoral, popliteal, posterior tibial, peroneal veins were evaluated for patency, spontaneity and phasicity with Doppler, compression and augmentation maneuvers. Great saphenous vein proximal at the junction was evaluated with compression maneuvers. INDICATIONS: Localized edema. FINDINGS: Performing Bakelite Molder: Marlys Castillo RVT. Bilateral: Venous Doppler signals [...] Vu Obregon MD FACS 05/23/2024 9:42:19 PM ELECTRICIAN SECOND Procedure Note Vu Obregon MD - 05/23/2024 [facility] - Department of Vascular Surgery,Vascular Laboratory [address] [place] [address] Lower Extremity Venous Ultrasound Report Patient Name: MOHSEN MARQUES M : 1955 (68y 11m) Study Date: 05/23/2024 11:12:03 AM Gender: F Tech: VELVET Location: [id number] Ref Provider: CARLOS REAL Quality: Adequate Order Provider: CARLOS REAL PROCEDURES: Vascular Report: Venous Duplex imaging was performed bilaterally in the lower extremities.The common femoral, femoral, popliteal, posterior tibial, peroneal veins wereevaluated for patency, spontaneity and phasicity with Doppler, compression and augmentationmaneuvers. Great saphenous vein proximal at the junction was evaluated with compressionmaneuvers. INDICATIONS: Localized edema. FINDINGS: Performing Bakelite Molder: Marlys Castillo RVT. Bilateral: Venous Doppler signals [...] Vu Obregon MD FACS 05/23/2024 9:42:19 PM ELECTRICIAN SECOND Carlos Real MD [facility] [place] PROCEDURES Final Result * (ABNORMAL) POCT glucose (05/23/2024 8:16 AM ELECTRICIAN SECOND) Pathologist [facility] Glucose, POC 204(H) 70 - 199 mg/dL Blood 05/23/2024 8:16 AM ELECTRICIAN SECOND 05/23/2024 8:16 AM ELECTRICIAN SECOND Cem Knapp MD LAB POCT ORDERABLES - DEVIC E Final Result [facility] Department [place] [address] * (ABNORMAL) Differential, auto (05/23/2024 2:30 AM ELECTRICIAN SECOND) Neutrophil abs 8.0(H) 1.5 - 6.5 K/cumm Imm gran abs 0.1 0.0 - 0.1 K/cumm [facility] Lymphocyte abs 2.6 0.8 - 3.3 K/cumm [facility] Monocyte abs 1.0(H) 0.2 - 0.8 K/cumm [facility] Eosinophil abs 0.3 0.0 - 0.5 K/cumm [facility] Basophil abs 0.0 0.0 - 0.1 K/cumm [facility] Neutrophil pct 66.5 % [facility] Comment: Interpretive Data Percent cell count reference ranges are not reported, since discordance with absolute values may lead to misinterpretation of CBC data. Current Interpretive Data was last revised on 2017. Imm gran pct 0.5 % [facility] Comment: Interpretive Data Percent cell count reference ranges are not reported, since discordance with absolute values may lead to misinterpretation of CBC data. Current Interpretive Data was last revised on 2017. Lymphocyte pct 21.9 % [facility] Comment: Interpretive Data Percent cell count reference ranges are not reported, since discordance with absolute values may lead to misinterpretation of CBC data. Current Interpretive Data was last revised on 2017. Monocyte pct 8.5 % [facility] Comment: Interpretive Data Percent cell count reference ranges are not reported, since discordance with absolute values may lead to misinterpretation of CBC data. Current Interpretive Data was last revised on 2017. Eosinophil pct 2.3 % [facility] Comment: Interpretive Data Percent cell count reference ranges are not reported, since discordance with absolute values may lead to misinterpretation of CBC data. Current Interpretive Data was last revised on 2017. Basophil pct 0.3 % [facility] Comment: Interpretive Data Percent cell count reference ranges are not reported, since discordance with absolute values may lead to misinterpretation of CBC data. Current Interpretive Data was last revised on 2017. Blood 05/23/2024 2:30 AM ELECTRICIAN SECOND 05/23/2024 1:03 AM ELECTRICIAN SECOND us Naila Guzman NP LAB BLOOD ORDERABLES Final Result [facility] [place] [address] * (ABNORMAL) CBC with auto differential (05/23/2024 2:30 AM ELECTRICIAN SECOND) WBC 11.9(H) 3.8 - 9.9 K/cumm Hgb 12.8 11.9 - 15.5 g/dL [facility] Hct 39.6 35.6 - 45.5 % [facility] Plt 254 150 - 400 K/cumm [facility] MPV 9.7 9.1 - 12.3 fL [facility] RBC 4.43 3.90 - 5.20 M/cumm [facility] MCV 89.4 81.3 - 96.4 fL [facility] MCH 28.9 27.1 - 33.3 pg [facility] MCHC 32.3 32.3 - 35.7 g/dL [facility] RDW CV 13.7 11.1 - 14.9 % [facility] RDW SD 44.6 35.7 - 48.1 fL [facility] NRBC abs 0.00 0.00 - 0.01 K/cumm [facility] Blood 05/23/2024 2:30 AM ELECTRICIAN SECOND 05/23/2024 1:03 AM ELECTRICIAN SECOND us Naila Guzman PUBLICITY DIRECTOR LAB BLOOD ORDERABLES Final Result [facility] Department [place] [address] * eGFR (05/23/2024 12:42 AM ELECTRICIAN SECOND) [facility] eGFR 84 >=60 mL/min/1. 73 m2 [...] reviewed 2021. Blood 05/23/2024 12:4 2 AM ELECTRICIAN SECOND 05/23/2024 1:02 AM ELECTRICIAN SECOND us Naila Guzman NP LAB BLOOD ORDERABLES Final Result Performing Organization Address [facility] Co de Phone Number [facility] [place] [address] * Type and screen (05/23/2024 12:42 AM ELECTRICIAN SECOND) ABO Rh O Positive Dilcia, indirect Negative [facility] Blood 05/23/2024 12:4 2 AM ELECTRICIAN SECOND 05/23/2024 12:52 AM ELECTRICIAN SECOND Narrative [facility] - 05/23/2024 1:53 AM ELECTRICIAN SECOND Has the patient had Daratumumab or Isatuximab in the past 6 months?->Unknown Naila Guzman NP LAB BLOOD BANK TEST ORDERA BLES Final Result Performing Organization Address [facility] Co de Phone Number [facility] Department [place] [address] * Uric acid (05/23/2024 12:42 AM ELECTRICIAN SECOND) Pathologist [facility] Uric acid 5.5 2.5 - 7.0 mg/dL Blood 05/23/2024 12:4 2 AM ELECTRICIAN SECOND 05/23/2024 1:02 AM ELECTRICIAN SECOND Narrative [facility] - 05/23/2024 1:34 AM ELECTRICIAN SECOND Monday and only. Morning draw. . us Naila Guzman NP LAB BLOOD ORDERABLES Final Result Performing Organization Address [facility] Co de Phone Number [facility] [place] [address] * Phosphorus (05/23/2024 12:42 AM ELECTRICIAN SECOND) Pathologist [facility] Phosphorus, pl 4.4 2.3 - 4.5 mg/dL Blood 05/23/2024 12:4 2 AM ELECTRICIAN SECOND 05/23/2024 1:02 AM ELECTRICIAN SECOND Naila Guzman NP LAB BLOOD ORDERABLES Final Result Performing Organization Address [facility] de Phone Number [facility] [place] [address] * Magnesium (05/23/2024 12:42 AM ELECTRICIAN SECOND) [facility] Magnesium 1.9 1.4 - 2.5 mg/dL Blood 05/23/2024 12:4 2 AM ELECTRICIAN SECOND 05/23/2024 1:02 AM ELECTRICIAN SECOND Naila Guzman NP LAB BLOOD ORDERABLES Final Result Performing Organization Address [facility] de Phone Number [facility] [place] [address] * Lactate dehydrogenase (LD) (05/23/2024 12:42 AM ELECTRICIAN SECOND) [facility] Lactate dehydrogenase (LDH) 247 100 - 250 Units/L Blood 05/23/2024 12:4 2 AM ELECTRICIAN SECOND 05/23/2024 1:02 AM ELECTRICIAN SECOND Narrative [facility] - 05/23/2024 1:34 AM ELECTRICIAN SECOND Monday and only. Morning draw. Naila Guzman NP LAB BLOOD ORDERABLES Final Result Performing Organization Address [facility] de Phone Number [facility] [place] [address] * Comprehensive metabolic panel (05/23/2024 12:42 AM ELECTRICIAN SECOND) [facility] Sodium 136 135 - 145 mmol/L Potassium, pl 4.3 3.3 - 4.9 mmol/L [facility] Chloride 101 97 - 110 mmol/L [facility] CO2 29 22 - 32 mmol/L [facility] Anion gap 6 2 - 15 mmol/L [facility] BUN 18 6 - 25 mg/dL [facility] Creatinine 0.77 0.60 - 1.10 mg/dL [facility] Glucose 194 70 - 199 mg/dL [facility] 2022. Calcium 9.5 8.5 - 10.3 mg/dL [facility] Bilirubin, total 0.5 0.1 - 1.2 mg/dL [facility] Protein, pl 7.4 6.5 - 8.5 g/dL [facility] Albumin 3.5 3.5 - 5.0 g/dL [facility] Alk phos 71 40 - 130 Units/L [facility] ALT 19 7 - 45 Units/L [facility] AST 22 10 - 45 Units/L [facility] Blood 05/23/2024 12:4 2 AM ELECTRICIAN SECOND 05/23/2024 1:02 AM ELECTRICIAN SECOND us Naila Guzman NP LAB BLOOD ORDERABLES Final Result [facility] [place] [address] * (ABNORMAL) POCT glucose (05/22/2024 8:56 PM ELECTRICIAN SECOND) Pathologist [facility] Glucose, POC 210(H) 70 - 199 mg/dL Blood 05/22/2024 8:56 PM ELECTRICIAN SECOND 05/22/2024 8:56 PM ELECTRICIAN SECOND Cem Knapp MD LAB POCT ORDERABLES - DEVIC E Final Result Performing Organization Address [facility] Co de Phone Number [facility] [employer] [place] [address] * POCT glucose (05/22/2024 6:09 PM ELECTRICIAN SECOND) Glucose, POC 142 70 - 199 mg/dL Blood 05/22/2024 6:09 PM ELECTRICIAN SECOND 05/22/2024 6:09 PM ELECTRICIAN SECOND Leo Henry MD LAB POCT ORDERABLES - NILESH CE Final Result Performing Organization Address [facility] de Phone Number [facility] [employer] [place] [address] * POCT glucose (05/22/2024 4:26 PM ELECTRICIAN SECOND) Glucose, POC 133 70 - 199 mg/dL Blood 05/22/2024 4:26 PM ELECTRICIAN SECOND 05/22/2024 4:26 PM ELECTRICIAN SECOND Leo Henry MD LAB POCT ORDERABLES - NILESH CE Final Result Performing Organization Address [facility] [place] [address] * CT Abdomen Pelvis W Contrast (05/22/2024 2:32 PM ELECTRICIAN SECOND) Anatomical Region Laterality Modality Body N/A Computed Tomogra phy 05/22/2024 4:35 PM ELECTRICIAN SECOND Impressions 05/22/2024 5:16 PM ELECTRICIAN SECOND No acute findings within the abdomen or pelvis. Dictated by: Yesi Mendes M.D. The radiology attending physician has personally reviewed this study, and had reviewed and/or edited this written report and agrees with it. Electronically signed by: Kelli Palmer M.D. Narrative 05/22/2024 5:16 PM ELECTRICIAN SECOND EXAMINATION: Computed tomography of the abdomen and [...] sult * POCT glucose (05/22/2024 12:58 PM ELECTRICIAN SECOND) Glucose, POC 177 70 - 199 mg/dL Blood 05/22/2024 12:5 8 PM ELECTRICIAN SECOND 05/22/2024 12:58 PM ELECTRICIAN SECOND Leo Henry MD LAB POCT ORDERABLES - NILESH CE Final Result [facility] [place] [address] * (ABNORMAL) POCT glucose (05/22/2024 9:29 AM ELECTRICIAN SECOND) Glucose, POC 291(H) 70 - 199 mg/dL Blood 05/22/2024 9:29 AM ELECTRICIAN SECOND 05/22/2024 9:29 AM ELECTRICIAN SECOND Leo Henry MD LAB POCT ORDERABLES - NILESH CE Final Result Performing Organization Address [facility] Co de Phone Number [facility] [place] [address] * POCT glucose (05/22/2024 6:54 AM ELECTRICIAN SECOND) Glucose, POC 142 70 - 199 mg/dL Blood 05/22/2024 6:54 AM ELECTRICIAN SECOND 05/22/2024 6:54 AM ELECTRICIAN SECOND Jimmie Zavala MD LAB POCT ORDERABLES - DEVICE Fin al Result Performing Organization Address [facility] de Phone Number [facility] Department [place] [address] * CT Chest PE (CTA) W Contrast (05/22/2024 1:31 AM ELECTRICIAN SECOND) Anatomical Region Laterality Modality Body N/A Computed Tomogra phy 05/22/2024 2:38 AM ELECTRICIAN SECOND Impressions 05/22/2024 9:12 AM ELECTRICIAN SECOND No pulmonary embolism. Dictated by: Miguel Milligan MD The radiology attending physician has personally reviewed this study, and had reviewed and/or edited this written report and agrees with it. Electronically signed by: Jayson Rockwell M.D. Narrative 05/22/2024 9:12 AM ELECTRICIAN SECOND EXAMINATION: CT CHEST PE (CTA) W CONTRAST [...] Result * D-dimer, quantitative (05/22/2024 12:24 AM ELECTRICIAN SECOND) D-Dimer 414 <=499 ng/mL FEU Comment: Interpretive [...] on 2019. Blood 05/22/2024 12:2 4 AM ELECTRICIAN SECOND 05/22/2024 12:42 AM ELECTRICIAN SECOND Angeline Soler MD LAB BLOOD ORDERABLES F inal Result [facility] Department of Laboratories [place], [place] [id number] * Troponin I high-sensitivity 2-hour (05/21/2024 11:09 PM ELECTRICIAN SECOND) Trop I hs 5 <=17 ng/L Comment: Interpretive Data For further hscTnI resources including the diagnostic algorithm and an aid in interpretation, copy and paste this link: [email or web address].testcatalog.org/show/[email or web address] Current Interpretive Data last revised 2019. Trop I hs delta See Comment ng/L [facility] Comment:Inappropriate collec tion time to report a delta. Trop I hs pct delta See Comment % [facility] Comment:Inappropriate collec tion time to report a delta. Trop I hs interp See Comment [facility] Comment:Inappropriate collec tion time to report a delta. Blood 05/21/2024 11:0 9 PM ELECTRICIAN SECOND 05/21/2024 11:26 PM ELECTRICIAN SECOND us Cira Castro MD LAB BLOOD ORDERABL ES Final Result [facility] Department [place] [address] * (ABNORMAL) Urinalysis reflex to microscopic and culture Urine (05/21/2024 11:09 PM ELECTRICIAN SECOND) Color, ur Yellow Yellow Clarity, ur Clear Clear [facility] Specific gravity, ur 1.025 1.003 - 1.030 [facility] pH, urine 6.0 [facility] Comment: Interpretive Data U rine pH is affected by diet, medications, systemic acid-base disturbances, and renal tubular function. pH may affect urinary stone formation. For example, urine pH below 6.0 may help reduce the tendency for calcium phosphate stones and pH greater than 6.0 may reduce the tendency for uric acid stone formation. Source: [facility] [employer] Current Interpretive Data was last revised on 2017 Protein, ur ql 1+(A) Negative [facility] Glucose, ur ql Negative Negative [facility] Ketones, ur Negative Negative [facility] Bilirubin, ur Negative Negative [facility] Blood, ur Trace(A) Negative [facility] Urobilinogen, ur <2.0 <2.0 mg/dL [facility] Nitrite, ur Positive(A) Negative [facility] Leukocyte esterase, ur 1+(A) Negative [facility] UA reflex comment Reflex to microscopic UA will be performed. [facility] Urine 05/21/2024 11:0 9 PM ELECTRICIAN SECOND 05/21/2024 11:22 PM ELECTRICIAN SECOND us Angeline Soler MD LAB MICROBIOLOGY - GEN ERAL ORDERABLES Final Result [facility] Department [place] [address] * Respiratory pathogen panel Nasopharyngeal (05/21/2024 11:09 PM ELECTRICIAN SECOND) Pathologist [facility] Influenza A RNA Not Detected Not Detected Influenza B RNA Not Detected Not Detected [facility] RSV RNA Not Detected Not Detected [facility] COVID-19 RNA Not Detected Not Detected [facility] Coronavirus 229E RNA Not Detected Not Detected [facility] Coronavirus HKU1 RNA Not Detected Not Detected [facility] Coronavirus NL63 RNA Not Detected Not Detected [facility] Coronavirus OC43 RNA Not Detected Not Detected [facility] Adenovirus DNA Not Detected Not Detected [facility] Metapneumovirus RNA Not Detected Not Detected [facility] Rhinovirus/Enterov irus RNA Not Detected Not Detected [facility] Parainfluenza 1 RNA Not Detected Not Detected [facility] Parainfluenza 2 RNA Not Detected Not Detected [facility] Parainfluenza 3 RNA Not Detected Not Detected [facility] Parainfluenza 4 RNA Not Detected Not Detected [facility] B. pertussis DNA Not Detected Not Detected [facility] B. parapertussis DNA Not Detected Not Detected [facility] C. pneumoniae DNA Not Detected Not Detected [facility] M. pneumoniae DNA Not Detected Not Detected [facility] Nasopharyngeal 05/21/2024 11 :09 PM ELECTRICIAN SECOND 05/22/2024 4:48 AM ELECTRICIAN SECOND Narrative [facility] - 05/22/2024 5:55 AM ELECTRICIAN SECOND Is the Patient experiencing symptoms consistent with COVID?->No Surveillance testing for transplant patient?->No Interpretive Data The [employer] FilmArray Respiratory Panel (RP2.1) assay is a [...] assay has FDA clearance for testing of PUBLICITY DIRECTOR swabs. The performance of additional specimen types has been assessed by the performing laboratory. The performance characteristics of this assay have been determined by [facility] Molecular Infectious Disease Laboratory. Current interpretive data was last revised on 22. Angeline Soler MD LAB MICROBIOLOGY - GEN ERAL ORDERABLES Final Result [facility] Department [place] [address] * (ABNORMAL) Urinalysis, microscopic only (05/21/2024 11:09 PM ELECTRICIAN SECOND) WBC, ur 11-20(A) 0 - 5 /HPF RBC, ur 3-5(A) 0 - 2 /HPF [facility] Epithelial cells, squamous, ur 1-5 0 - 5 /HPF [facility] Bacteria, ur 3+(A) [facility] Yeast, ur Trace(A) [facility] Mucous, ur Present(A) [facility] Culture Reflex Comment Reflex to urine culture will be performed. [facility] Urine 05/21/2024 11:0 9 PM ELECTRICIAN SECOND 05/21/2024 11:21 PM ELECTRICIAN SECOND us Angeline Soler MD LAB URINE ORDERABLES F inal Result [facility] Department [place] [address] * (ABNORMAL) Urine culture Urine (05/21/2024 11:09 PM ELECTRICIAN SECOND) Report Amended Report - Complete: Greater than or equal to 100,000 colonies/mL of Escherichia coli Plus growth of clinically insignificant bacterial yesenia. (.) Organism ESCHERICHIA COLI [facility] Organism PLUS GROWTH OF CLINICALLY INSIGNIFICANT YESENIA. [facility] Urine 05/21/2024 11:0 9 PM ELECTRICIAN SECOND 05/22/2024 2:40 AM ELECTRICIAN SECOND Narrative [facility] - 05/25/2024 10:36 AM ELECTRICIAN SECOND Urine culture reflexed based upon urinalysis results. Testing performed by [facility] Microbiology Laboratory ([phone]) Organism Antibiotic Method Susceptibility Escherichia coli Ampicillin [...] Edited Result - Final Performing Organization Address [facility] Co de Phone Number [facility] Department [place] [address] * POCT glucose (05/21/2024 8:55 PM ELECTRICIAN SECOND) Pathologist [facility] Glucose, POC 139 70 - 199 mg/dL Blood 05/21/2024 8:55 PM ELECTRICIAN SECOND 05/21/2024 8:55 PM ELECTRICIAN SECOND Result [facility] Notinfile Unknown LAB POCT ORDERABLES - DEVICE F inal Result Performing Organization Address [facility] de Phone Number [facility] Department of [employer] [place] [address] * Troponin I high-sensitivity 4-hour (05/21/2024 7:26 PM ELECTRICIAN SECOND) Pathologist [facility] Trop I hs 4 <=17 ng/L Comment: Interpretive Data For further hscTnI resources including the diagnostic algorithm and an aid in interpretation, copy and paste this link: https://bjhlab.testcatalog.org/show/hsTrop-[email or web address] Current Interpretive Data last revised 2019. Trop I hs delta -1 ng/L [facility] Trop I hs interp Insignificant [facility] Blood 05/21/2024 7:26 PM ELECTRICIAN SECOND 05/21/2024 7:37 PM ELECTRICIAN SECOND Cira Castro MD LAB BLOOD ORDERABL ES Final Result Performing Organization Address [facility] Co de Phone Number [facility] Department [place] [address] * Troponin I high-sensitivity series (baseline, 2hr, 4hr, 6hr) (05/21/2024 4:20 PM ELECTRICIAN SECOND) Trop I hs 5 <=17 ng/L Comment: Interpretive Data For further hscTnI resources including the diagnostic algorithm and an aid in interpretation, copy and paste this link: https://bjhlab.testcatalog.org/show/hsTrop-1 Current Interpretive Data last revised 2019. Blood 05/21/2024 4:20 PM ELECTRICIAN SECOND 05/21/2024 4:50 PM ELECTRICIAN SECOND Jimmie Zavala MD LAB BLOOD ORDERABLES Final Resul t [facility] Department [place] [address] * eGFR (05/21/2024 4:20 PM ELECTRICIAN SECOND) Pathologist [facility] eGFR >90 >=60 [...] last reviewed 2021. Blood 05/21/2024 4:20 PM ELECTRICIAN SECOND 05/21/2024 4:50 PM ELECTRICIAN SECOND us Jimmie Zavala MD LAB BLOOD ORDERABLES Final Resul t [facility] Department [place] [address] * (ABNORMAL) Differential, auto (05/21/2024 4:20 PM ELECTRICIAN SECOND) Neutrophil abs 8.0(H) 1.5 - 6.5 K/cumm Imm gran abs 0.0 0.0 - 0.1 K/cumm [facility] Lymphocyte abs 2.4 0.8 - 3.3 K/cumm [facility] Monocyte abs 0.8 0.2 - 0.8 K/cumm [facility] Eosinophil abs 0.2 0.0 - 0.5 K/cumm [facility] Basophil abs 0.0 0.0 - 0.1 K/cumm [facility] Neutrophil pct 69.4 % [facility] Comment: Interpretive Data Percent cell count reference ranges are not reported, since discordance with absolute values may lead to misinterpretation of CBC data. Current Interpretive Data was last revised on 2017. Imm gran pct 0.4 % [facility] Comment: Interpretive Data Percent cell count reference ranges are not reported, since discordance with absolute values may lead to misinterpretation of CBC data. Current Interpretive Data was last revised on 2017. Lymphocyte pct 21.4 % [facility] Comment: Interpretive Data Percent cell count reference ranges are not reported, since discordance with absolute values may lead to misinterpretation of CBC data. Current Interpretive Data was last revised on 2017. Monocyte pct 6.7 % [facility] Comment: Interpretive Data Percent cell count reference ranges are not reported, since discordance with absolute values may lead to misinterpretation of CBC data. Current Interpretive Data was last revised on 2017. Eosinophil pct 1.8 % [facility] Comment: Interpretive Data Percent cell count reference ranges are not reported, since discordance with absolute values may lead to misinterpretation of CBC data. Current Interpretive Data was last revised on 2017. Basophil pct 0.3 % [facility] Comment: Interpretive Data Percent cell count reference ranges are not reported, since discordance with absolute values may lead to misinterpretation of CBC data. Current Interpretive Data was last revised on 2017. Blood 05/21/2024 4:20 PM ELECTRICIAN SECOND 05/21/2024 4:50 PM ELECTRICIAN SECOND Jimmie Zavala MD LAB BLOOD ORDERABLES Final Resul t Performing Organization Address City/[facility]/ZIP Co de Phone Number [facility] Department [place] [employer] [place] [address] * (ABNORMAL) CBC with auto differential (05/21/2024 4:20 PM ELECTRICIAN SECOND) WBC 11.4(H) 3.8 - 9.9 K/cumm Hgb 14.0 11.9 - 15.5 g/dL [facility] Hct 43.6 35.6 - 45.5 % [facility] Plt 286 150 - 400 K/cumm [facility] MPV 9.9 9.1 - 12.3 fL [facility] RBC 4.83 3.90 - 5.20 M/cumm [facility] MCV 90.3 81.3 - 96.4 fL [facility] MCH 29.0 27.1 - 33.3 pg [facility] MCHC 32.1(L) 32.3 - 35.7 g/dL [facility] RDW CV 13.6 11.1 - 14.9 % [facility] RDW SD 45.6 35.7 - 48.1 fL [facility] NRBC abs 0.00 0.00 - 0.01 K/cumm [facility] Blood Venous blood specimen / Unknown 05/21/2024 4:20 PM ELECTRICIAN SECOND 05/21/2024 4:50 PM ELECTRICIAN SECOND us Jimmie Zavala MD LAB BLOOD ORDERABLES Final Resul t Performing Organization Address City/[facility]/ZIP Co de Phone Number [facility] Department [place] [address] * (ABNORMAL) Hemoglobin A1c (05/21/2024 4:20 PM ELECTRICIAN SECOND) Hgb A1C 8.7(H) 4.0 - 5.6 % [...] a fasting glucose. Blood 05/21/2024 4:20 PM ELECTRICIAN SECOND 05/21/2024 4:55 PM ELECTRICIAN SECOND Leo Henry MD LAB BLOOD ORDERABLES Final Result [facility] Department [place] [address] * (ABNORMAL) Lipid panel (05/21/2024 4:20 PM ELECTRICIAN SECOND) Cholesterol 205(H) 30 - 199 mg/dL Comment: [...] 2017. Triglycerides 92 <=149 mg/dL [facility] Comment: Interpretive Data Ages < or [...] 2017. HDL 55 >=40 mg/dL [facility] Comment: Interpretive Data Ages < or [...] LDL, calculated 134(H) <=129 mg/dL [facility] Comment: Interpretive Data Ages < or [...] 2023. Non-HDL Cholesterol 150 mg/dL [facility] Comment: Interpretive Data Ages < or [...] last revised on 2017. Chol/HDL ratio 4 [facility] Blood 05/21/2024 4:20 PM ELECTRICIAN SECOND 05/21/2024 4:50 PM ELECTRICIAN SECOND Narrative [facility] - 05/22/2024 4:17 PM ELECTRICIAN SECOND Reflex us Leo Henry MD LAB BLOOD ORDERABLES Final Result [facility] Department [place] [address] * Comprehensive metabolic panel (05/21/2024 4:20 PM ELECTRICIAN SECOND) Sodium 140 135 - 145 mmol/L Potassium, pl 4.3 3.3 - 4.9 mmol/L [facility] Chloride 100 97 - 110 mmol/L [facility] CO2 29 22 - 32 mmol/L [facility] Anion gap 11 2 - 15 mmol/L [facility] BUN 14 6 - 25 mg/dL [facility] Creatinine 0.63 0.60 - 1.10 mg/dL [facility] Glucose 119 70 - 199 mg/dL [facility] 2022. Calcium 10.0 8.5 - 10.3 mg/dL [facility] Bilirubin, total 0.7 0.1 - 1.2 mg/dL [facility] Protein, pl 8.5 6.5 - 8.5 g/dL [facility] Albumin 3.9 3.5 - 5.0 g/dL [facility] Alk phos 83 40 - 130 Units/L [facility] ALT 23 7 - 45 Units/L [facility] AST 22 10 - 45 Units/L [facility] Blood 05/21/2024 4:20 PM ELECTRICIAN SECOND 05/21/2024 4:50 PM ELECTRICIAN SECOND us Jimmie Zavala MD LAB BLOOD ORDERABLES Final Resul t [facility] Department [place] [address] * XR Chest Pa Lateral 2 Views (05/21/2024 2:23 PM ELECTRICIAN SECOND) Anatomical Region Laterality Modality Body, Chest N/A Computed Radiogr aphy 05/21/2024 2:28 PM ELECTRICIAN SECOND Impressions 05/21/2024 2:36 PM ELECTRICIAN SECOND The current study is compared with the [...] Jaime Neves M.D. Narrative 05/21/2024 2:36 PM ELECTRICIAN SECOND EXAMINATION: 2 view chest radiograph Procedure Note [...] Result * POCT glucose (05/21/2024 1:39 PM ELECTRICIAN SECOND) Glucose, POC 113 70 - 199 mg/dL Blood 05/21/2024 1:39 PM ELECTRICIAN SECOND 05/21/2024 1:39 PM ELECTRICIAN SECOND us Notinfile Unknown LAB POCT ORDERABLES - DEVICE F inal Result [facility] Department [place] [address] * ECG 12-LEAD (05/21/2024 1:36 PM ELECTRICIAN SECOND) Narrative [facility] - 05/21/2024 1:36 PM ELECTRICIAN SECOND Gil Mcgrath MD 05/21/2024 1:37 PM ECG [...] in the ED Gil Mcgrath MD 05/21/24 [id number] Jimmie Zavala MD ECG ORDERABLES Final Result Performing Organization Address City/State/ZIP Co ny Phone Number [facility] * US Axillary Breast Left (05/21/2024 12:13 PM ELECTRICIAN SECOND) Anatomical Region Laterality Modality Upper Extremities Left Ultrasound 05/21/2024 12:2 3 PM ELECTRICIAN SECOND Impressions 05/21/2024 12:23 PM ELECTRICIAN SECOND 1. Limited ultrasound due to extensive edema [...] Alicia Wilcox M.D. Narrative 05/21/2024 12:23 PM ELECTRICIAN SECOND EXAMINATION: LEFT AXILLARY ULTRASOUND HISTORY: Patient is [...] Bone mineral density was performed on a [employer] Discovery Densitometer. Based on machine cross-calibration and [...] by the International Society of Clinical Densitometry. [id number] Khris Arthur MD IMG DXA PROCEDURES F [...] agrees with it. ACC# Date Time Exam [id number] Aug 19, 2016 14:27:00 [facility] [address] [employer] CAD, unilat L Technologist(s): Carla Harris; ; [id number] Aug 19, 2016 15:39:00 [facility] [id number] Breast US unilateral, ltd L ACC# Date Time Exam [id number] Aug 19, 2016 14:27:00 [facility] [id number] [employer] CAD, unilat L Technologist(s): Carla Harris; ; [id number] Aug 19, 2016 15:39:00 [facility] [id number] Breast US unilateral, ltd L EXAMINATION: LEFT [...] SARABIA M.D. on Aug 19 2016 4:20P [id number] Procedure Note Miscellaneous, Not In File / Provider, MD Tyler - 09/17/2016 ANTHONY SARABIA M.D. JUDY RINCON M.D. FINAL REPORT The radiology attending physician has personally reviewed this study, and has reviewed and/or edited this written report and agrees with it. ACC# Date Time Exam [id number] Aug 19, 2016 14:27:00 [facility] [id number] [employer] CAD, unilat L Technologist(s): Carla Harris; ; [id number] Aug 19, 2016 15:39:00 [facility] [address] Breast US unilateral, ltd L ACC# Date Time Exam [id number] Aug 19, 2016 14:27:00 [facility] [address] [employer] CAD, unilat L Technologist(s): Carla Harris; ; [id number] Aug 19, 2016 15:39:00 [facility] [address] Breast US unilateral, ltd L EXAMINATION: LEFT [...] SARABIA M.D. on Aug 19 2016 4:20P [id number] us Not In File Miscellaneous IMG MAMMO PROCEDURES F inal Result from Last 3 Months or Most Recently Relevant to Health Maintenance Insurance [facility] MEDICARE ADVANTAGE [facility] MEDICARE ADVANTAGE [employer] MEDICARE ADVANTAGE Advance Directives For more information, please contact: [phone] Documents on File Type Date Recorded Patient Film Loader Expl anation ADVANCE DIRECTIVE 12/23/2021 2:49 PM Power of Vice President Research-Medical ADVANCE DIRECTIVE 12/23/2021 2:49 PM Living Will [...] First Alternate Health Care Agent Care Teams Drug Abuse Counselor Relationship Specialty Start Date End Date Justen Gale MD [address] [address] PCP - General 10/09/17 Liu Jerez MD Consulting Physician Gastroenterology 07/28/17 [place] [address] [facility] [address] [place] [address] Consulting Physician Pulmonary Disease 08/03/17 [place] [address] [place] [address] [address] [place] [address] Medical Oncologist/Electric Sign Assembler Medical Oncology 10/23/17 [place] [address] [facility] [address] [place] [address] Surgeon Orthopedic Surgery 10/23/17 [place] [address] [facility] [address] [place] [address] Consulting Physician Pain Management 10/23/17 [place] [address] [facility] [address] [place] [address] Referring Physician General Surgery 01/26/18 [place] [address] [facility] [address] [place] [address] Consulting Physician Neurology 01/26/18
--- OUTSIDE RECORDS SUMMARY | 2024-08-13 21:53 | XMS_ITS | Clinical Summary ---
Author Organization [facility] Address [facility] [place] [address] Care Team Providers Care Porter Marina Name Role Phone Meena Bansal MD Unavailable [phone] Justen Gale MD Primary Care Provider [phone] Allergies Active Allergy Reactions Criticality Noted Date [...] (15 mg total) by mouth daily. 09/25/19 24 Active amoxicillin (AMOXIL) 500 MG capsule Take 1 capsule (500 mg total) by mouth 3 (three) times daily for 5 days. 15 capsule 08/13/19 25 025 Active Active Problems Problem Noted Date Diagnosed Date Pneumonia 10/14/2023 CAP (community acquired pneumonia) 10/13/2023 Anxiety state 09/05/2020 Depressive disorder 09/05/2020 Dyslipidemia 09/05/2020 Eustachian tube disorder 09/05/2020 Gastroesophageal reflux disease 09/05/2020 Malignant tumor of breast ([facility]) 08/22 Knee pain 09/05/2020 Other [...] 10:02 PM CDT): Chronic. Controlled. -Continue home noror. 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 Troponins negative x2. Also in differential is GERD, PUD - Admit to observation -Follow-up troponins -Monitor vitals -N.p.o. at midnight - Stress echo in a.m. - Consider cardiology consult based on results of stress test -Begin Protonix Epigastric pain 03/18/2018 Assessment & Plan (03/18/2018 5:39 AM [employer] TE[employer] MEMBER): Acute, non radiating, worsens with lying down, [...] Speech impairment 01/30/2018 CVA (cerebral vascular accident) ([facility] HHS/ C) 01/24/2018 Neck pain on right side 12/01/2017 Anxiety and depression 11/12/2017 Chronic anticoagulation 11/09/2017 Constipation 11/09/2017 Uncontrolled type 2 diabetes mellitus with hyperglycemia, with long-term current use of insulin ([facility]) 11/06/2017 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 -continue exemestane Acute deep vein thrombosis ( DVT) of proximal vein of right lower extremity ([facility]) 10/17/2017 Dysuria 10/17/2017 Hyperthyroidism 10/17/2017 Cancer of overlapping sites of left female breast ([facility]) 10/13/2017 Syncope 09/29/2017 High blood pressure 08/22/2017 Overview (09/05/2020): Last Assessment & Plan: On lisinopril Last Assessment & Plan: On lisinopril Assessment & Plan (08/30/2018 9:57 PM CDT): Chronic. Controlled. -continue home medications Assessment & Plan (03/18/2018 2:51 AM [employer] TEAM MEMBER): Chronic, BPs currently 127/78 - To new home meds Morbid obesity with BMI of 50.0-59.9, adult 0504/2017 Sepsis ([facility]) 08/22/2017 Type 2 diabetes mellitus ([facility]) 08/22 Overview (09/05/2020): Last Assessment & Plan: Hold janument. Start on SSI and accucheks Assessment & Plan (08/30/2018 10:01 PM CDT): Chronic. Controlled. -continue home insulin regimen of lantus 50 units q am -lispro 20 units with breakfast and lunch. 22 units with dinner. Assessment & Plan (03/18/2018 2:53 AM [employer] TEAM MEMBER): Chronic, patient reports medical compliance with 50 units of Lantus daily and 15 units of Humalog before meals. No recent HbA1c - Monitor POC glucose -[place] home regimen - Consider sliding scale insulin -Follow-up HbA1c Bronchitis 08/20/2017 LUL (obstructive sleep apnea) 08/01/2017 Assessment & Plan (03/18/2018 2:54 AM [employer] TE[employer] MEMBER): Chronic, on CPAP at home - Continue home CPAP History of DVT (deep vein thrombosis) 08/01/2017 Assessment & Plan (03/18/2018 2:54 AM SE[employer] TE[employer] MEMBER): Chronic - Continue home Xarelto Chest pressure 08/01/2017 Diet-controlled diabetes mellitus ([facility]/H CC) 08/01/2017 History of pulmonary embolism 08/01/2017 Hyponatremia 08/01/2017 Positive blood culture 08/01/2017 Acute pharyngitis 07/27/2017 Generalized weakness 07/27/2017 Nausea and vomiting 07/26/2017 Overview (09/05/2020): Overview: Overview: Added automatically from request for surgery [id number] Overview: Added automatically from request for surgery [id number] Added automatically from request for surgery [id number] Neuropathy 07/05/2017 History of breast cancer 02/06/2017 Pulmonary embolism ([facility]HCC) 08/09/2016 Overview (09/05/2020): Last Assessment & Plan: [...] syndrome Assessment & Plan (03/18/2018 2:54 AM [employer] TE[employer] MEMBER): Chronic -Continue home ropinirole Pain of lower extremity 03/12/2013 Overview (09/05/2020): Leg pain Encounters Date Type Department Care Team Description 08/12/2024 4:41 PM CDT - 08/12/2024 7:52 PM CDT Emergency [facility] [place] [address] Marvin Brewer MD Urinary Symptoms Discharge Disposition: Home or Self Care (Routine Discharge) 08/12/2024 Travel from Last 3 Months Immunizations Immunization Administration Dates Next Due Influenza [...] drink = 0.6 oz pur e alcohol) [facility] Utilities Answer Date Recorded In the past 12 months has e [employer] gas, oil, or water [employer] threatened to shut off services in your [...] any time in the past 12 m [facility], were you homeless or living in a jail (including now)? No 10/13/2023 Comments No Sex and Gender Information Value Date Recorded Sex Assigned at Female 09/06/2020 12:50 AM CDT Legal Sex Female 10:47 AM CDT Gender Identity Female 09/06/2020 12:50 AM CDT Sexual Orientation Straight 03/18/2018 3: 01 AM [employer] TE[employer] MEMBER Last Filed Vital Signs Vital Sign Reading Time Taken Comments Blood Pressure 177/98 08/12/2024 7:12 PM CDT Pulse 78 08/12/2024 7:12 PM CDT Temperature 36.4 C (97.5 F) 08/12/2024 4:17 PM CDT Respiratory Rate 18 08/12/2024 7:12 PM CDT Oxygen Saturation 96% 08/12/2024 7:12 PM CDT Inhaled Oxygen Concentration - - Weight 122.5 kg (270 lb) 08/12/2024 4:17 PM CDT Height 154.9 cm (5' 1 ) 08/12/2024 4:17 PM CDT Body Mass Index 51.02 08/12/2024 4:17 PM CDT Plan of Treatment Health Maintenance Due Date Last Done Comments ASCVD Statin 1955 Kidney Health Evaluation 1955 Diabetes: Retinopathy Eye Exam 1974 Pneumococcal Vaccine: 50+ Years (1 of 2 - PCV) 1975 Zoster Vaccines (1 of 2) 2006 RSV Immunization or 60+ Years (1 - Risk 60-74 years 1-dose series) 2016 Mammogram Screening 09/10/2016 09/10/2014, 5 Annual Medicare Wellness Visit 2021 COVID-19 Vaccine (2 - season) 2023 06/29/2020 Lipid Panel 10/13/2024 10/14/2023, 03/26, 09/28/2017, Additional history exists Hemoglobin A1C 11/18/2024 05/21/2024, 09/23, 08/14/2023, Additional history exists DTaP, Tdap and Td Vaccines (2 - Td or Tdap) 02/22/2026 02/23/2016 Colorectal Cancer Screening Colonoscopy (10 Years) 09/09/2028 09/09/2018 Dexa Scan (General) Completed 08/02/2022, 08/02/2022, 11/10/2020, Additional history exists Hepatitis C Completed 02/21/2023 Meningococcal B Vaccine Aged Out No l onger eligible based on patient's age to complete this topic Meningococcal Vaccine Aged Out No princess lencho eligible based on patient's age to complete this topic RSV Immunizations Under 20 Months Aged Out No longer eligible based on patient's age to complete this topic Procedures Procedure Name Priority Date/Time Associated Diagnosis Comments ECG 12-LEAD STAT 08/12/2024 5:13 PM CDT COMPREHENSIVE METABOLIC PANEL STAT 08/12/2024 4:49 PM CDT CBC W/DIFF AUTOMATED STAT 08/12/2024 4:49 PM CDT HC URINALYSIS AUTO W/O MICRO STAT 08/12/2024 4:48 PM CDT LIPID PANEL Routine 10/14/2023 3:40 AM CDT HEMOGLOBIN, GLYCOSYLATED Routine 10/14/2023 3:40 AM CDT COLONOSCOPY Routine 09/09/2018 11:55 AM CDT from Last 3 Months or Most Recently Relevant to Health Maintenance Results * ECG 12 lead (08/12/2024 5:13 PM CDT) 08/12/2024 5:13 PM CDT [facility]arrative [facility] - 08/12/2024 10:49 PM CDT [facility] Test Date: 2024-08-12 Pat Name: MOHSEN SALAZAR Department: 41 Room: [facility] Gender: Female 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 : 1955 Requested By: MARVIN BREWER Order Number: [id number] Reading MD: Meena Bansal Measurements Intervals [place] Rate: 82 P: -76 MI: 99 QRS: 30 QRSD: 86 T: 65 QT: 403 QTc: 472 Interpretive Statements JUNCTIONAL RHYTHM ABNORMAL RHYTHM ECG Compared to ECG 10/13/2023 01:02:35 Junctional rhythm now present Sinus rhythm no longer present Incomplete right bundle-branch block no longer present Myocardial infarct finding no longer present Procedure Note Meena Bansal MD - 08/12/2024 [facility] [address] [facility] Test Date: 2024-08-12 Pat Name: MOHSEN SALAZAR Department: 41 Room: [facility] Gender: Female 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 RAD * (ABNORMAL) COMPREHENSIVE METABOLIC PANEL (08/12/2024 4:49 PM CDT) GLUCOSE 293(H) 70 - 99 MG/DL 08/12/2024 5:33 PM CDT [facility] BUN 17 7 - 18 MG/DL 08/12/2024 5:33 PM CDT [facility] CREATININE S/P/B 0.84 0.55 - 1.02 MG/DL 08/12/2024 5:33 PM CDT [facility] SODIUM S/P/B 137 136 - 145 MMOL/L 08/12/2024 5:33 PM CDT [facility] POTASSIUM S/P/B 4.0 3.5 - 5.1 MMOL/L 08/12/2024 5:33 PM CDT [facility] CHLORIDE S/P/B 103 97 - 115 MMOL/L 08/12/2024 5:33 PM CDT [facility] CO2 27.7 21 - 32 MMOL/L 08/12/2024 5:33 PM CDT [facility] CALCIUM S/P/B 9.2 8.5 - 10.1 MG/DL 08/12/2024 5:33 PM CDT [facility] BILIRUBIN TOTAL S/P/B 0.4 0.2 - 1.2 MG/DL 08/12/2024 5:33 PM CDT [facility] Comment: THIS ASSAY IS NOT RECOMMENDED FOR PATIENTS UNDERGOING TREATMENT WITH ELTROMBOPAG DUE TO THE POTENTIAL FOR FALSELY ELEVATED RESULTS. TOTAL PROTEIN S/P/B 8.1 6.4 - 8.2 G/DL 08/12/2024 5:33 PM CDT [facility] ALBUMIN S/P/B 3.2(L) 3.4 - 5.0 G/DL 08/12/2024 5:33 PM CDT [facility] AST 20 15 - 37 U/L 08/12/2024 5:33 PM T [facility] ALT 29 14 - 55 U/L 08/12/2024 5:33 PM T [facility] ALKALINE PHOSPHATASE S/P/B 83 50 - 136 U/L 08/12/2024 5:33 PM T [facility] ANION GAP 6.3 2 - 10 MMOL/L 08/12/2024 5:33 PM T [facility] BUN CREATININE RATIO 20.3 6 - 26 08/12/2024 5:33 PM T [facility] A/G RATIO 0.7(L) 1.0 - 2.0 RATIO 08/12/2024 5:33 PM T [facility] GFR ESTIMATE 76(L) >90 ML/MIN/1.7 3 M2 08/12/2024 5:33 PM T [facility] Comment: NOTE: eGFR is not calculated for patients <18 years of age or gender unknown. This is an estimated GFR calculation using the new CKD EPI creatinine equation without race and so does not require a correction factor for race. This estimated GFR should not be used for calculating drug doses. 08/12/2024 4:49 PM CDT [facility] Final Result [facility] [address] [place] [address], [place] [phone] * (ABNORMAL) CBC W/DIFF AUTOMATED (08/12/2024 4:49 PM CDT) WBC 12.17(H) 4.5 - 11.0 x10'3/uL 08/12/2024 5:00 PM CDT [facility] RBC 4.58 4.20 - 5.40 x10'6/uL 08/12/2024 5:00 PM CDT [facility] HGB 13.3 12.0 - 16.0 G/DL 08/12/2024 5:00 PM CDT [facility] HCT 42.6 38.0 - 48.0 % 08/12/2024 5:00 PM CDT [facility] MCV 93.0 81.0 - 99.0 FL 08/12/2024 5:00 PM CDT [facility] MCH 29.0 27.0 - 31.0 PG 08/12/2024 5:00 PM CDT [facility] MCHC 31.2(L) 32.0 - 36.0 G/DL 08/12/2024 5:00 PM CDT [facility] RDW 13.3 11.5 - 14.5 % 08/12/2024 5:00 PM CDT [facility] PLT 290 130 - 400 x10'3/uL 08/12/2024 5:00 PM CDT [facility] MPV 9.8 9.3 - 12.2 FL 08/12/2024 5:00 PM CDT [facility] DIFFERENTIAL TYPE AUTOMATED DIFFERENTIAL 08/12/2024 5:00 PM CDT [facility] NEUTROPHILS % 67.7 % 08/12/2024 5:00 PM CDT [facility] LYMPHOCYTES % 21.2 % 08/12/2024 5:00 PM CDT [facility] MONOCYTES % 8.0 % 08/12/2024 5:00 PM CDT [facility] EOSINOPHILS 2.3 % 08/12/2024 5:00 PM CDT [facility] BASOPHILS 0.3 % 08/12/2024 5:00 PM CDT [facility] IMMATURE GRANS % 0.5 % 08/13/19 5:00 PM CDT [facility] ABS. NEUTROPHILS 8.24(H) 1.80 - 7.70 x10'3/uL 08/12/2024 5:00 PM CDT [facility] ABS. LYMPHOCYTES 2.58 1.00 - 4.80 x10'3/uL 08/12/2024 5:00 PM CDT [facility] ABS. MONOCYTES 0.97(H) 0.24 - 0.86 x10'3/uL 08/12/2024 5:00 PM CDT [facility] ABS. EOSINOPHILS 0.28 0.04 - 0.36 x10'3/uL 08/12/2024 5:00 PM CDT [facility] ABS. BASOPHILS 0.04 0.01 - 0.08 x10'3/uL 08/12/2024 5:00 PM CDT [facility] ABS. IMMATURE GRANULOCYTES 0.06 0.00 - 0.49 x10'3/uL 08/12/2024 5:00 PM CDT [facility] 08/12/2024 4:49 PM CDT us [facility] Final Result [facility] [address] [place] [address], [place] [phone] * (ABNORMAL) URINALYSIS (08/12/2024 4:48 PM CDT) SPECIMEN TYPE URINE CLEAN CATCH 08/12/2024 4:48 PM CDT [facility] COLOR (U) LIGHT YELLOW 08/12/2024 5:07 PM CDT [facility] TRANSPARENCY CLEAR 08/12/2024 5:07 PM CDT [facility] SPECIFIC GRAVITY (U) 1.016 1.001 - 1.030 08/12/2024 5:07 PM CDT [facility] U PH 6.0 5.0 - 9.0 08/12/2024 5:07 PM CDT [facility] LEUKOCYTES (U) NEGATIVE NEGATIVE 08/12/2024 5:07 PM CDT [facility] NITRITES NEGATIVE NEGATIVE 08/12/2024 5:07 PM CDT [facility] PROTEIN RANDOM (U) NEGATIVE <30 MG/DL 08/12/2024 5:07 PM CDT [facility] GLUCOSE (U) 1000(A) NORMAL MG/DL 08/12/2024 5:07 PM CDT [facility] KETONES MG/DL (U) NEGATIVE NEGATIVE MG/DL 08/12/2024 5:07 PM CDT [facility] UROBILINOGEN NORMAL NORMAL MG/DL 08/12/2024 5:07 PM CDT [facility] BILIRUBIN (U) NEGATIVE NEGATIVE MG/DL 08/12/2024 5:07 PM CDT [facility] BLOOD (U) NEGATIVE NEGATIVE 08/12/2024 5:07 PM CDT [facility] URINE SPECIMEN OBTAINED BY CLEAN CATCH PROCEDURE / Unknown 08/12/2024 4:48 PM CDT [facility] URINE ORDERABLES Final Result [facility] [address] [place] [address], [place] [phone] * LIPID PANEL (10/14/2023 3:40 AM CDT) CHOLESTEROL 164 <200 MG/DL 10/14/2023 4:31 AM CDT [facility] TRIGLYCERIDES 114 <150 MG/DL 10/14/2023 4:31 AM CDT [facility] HDL 46 >40.0 MG/DL 10/14/2023 4:31 AM T [facility] LDL (CALCULATED) 95 <100 MG/DL 10/14/19 4:31 AM CDT [facility] NON HDL CHOLESTEROL 118 <130 MG/DL 10/13 4:31 AM CDT [facility] CHOL/HDL RATIO 3.6 0.0 - 4.5 10/14/2023 4:31 AM CDT [facility] VLDL CALCULATION 23 5 - 55 MG/DL 10/14/2023 4:31 AM CDT [facility] LIPID INTERPRETATION 10/14/2023 4:31 AM T [facility] Comment: [facility] REPORT RECOMMENDATIONS: ADULT CHILD LOW RISK: CHOLESTEROL <200 <170 TRIGLYCERIDE <150 --- HDL >=60 --- LDL <100 <110 BORDERLINE: CHOLESTEROL 200-239 170-199 TRIGLYCERIDE 150-199 --- HDL 40-59 --- LDL 100-159 110-129 HIGH RISK: CHOLESTEROL >=240 >=200 TRIGLYCERIDE >=200 --- HDL <40 --- LDL >=160 >=130 10/14/2023 3:40 AM CDT Peggy Bland MD LABORATORY Final Result [facility] [address] [place] [address], [place] [phone] from Last 3 Months or Most Recently Relevant to Health [place] [id number] [facility] [place] [address] [facility] Advance Directives * Full Code (Latest [...] 2:42 AM 03/18/2018 4:50 PM Care Teams Porter Marina Relationship Specialty Start Date End Date Justen Gale MD [address] [place] [address] PCP - General FAMILY PRACTICE 08/20/17 Meena Bansal MD [address] [place] [address] [place] CARDIOVASCULAR DISEASE 04/24/16
--- OUTSIDE RECORDS SUMMARY | 2024-08-13 21:53 | XMS_ITS | Clinical Summary ---
Author Organization [facility] Address [address] [facility] [address] Care Team Providers Care Prison Guard Supervisor Name Role Phone Justen Gale MD Primary Care Provider [phone] Source Comments [facility],non-[facility] Affiliates and Associated Physician Practices is amultiple site organization consisting of ambulatory clinics and hospital sitesin [place], [place], [place] and [place]. This disclosure is being madepursuant to the Care Everywhere program and may not contain all information available regarding this patient. Last updated 18.[facility] [employer] Allergies Active Allergy Reactions Criticality Noted Date [...] Sensor (FreeStyle Eileen 2 Sensor Systm) [facility] APPLY 1 SENSOR AND WEAR FOR 14 [...] once daily 90 tablet 4 4 Active ondansetron, disintegrating, (Zofran ODT) 4 MG tablet Take 1 (one) tablet by mouth every 6 hours as needed for Nausea/Vomiting Allow tablet to dissolve on the tongue 15 tablet 5 Active clindamycin (Cleocin) 300 MG capsule Take 1 (one) capsule by mouth 3 times daily for 10 days 30 capsule 5 025 Active Active Problems Problem Noted Date [...] Encounters Date Type Department Care Team Description 08/13/2024 Telephone ER at [address] [place] [address] Jordana Abdul MD ER UC Follow-up 08/09/2024 6:46 PM CDT - 08/09/2024 9:35 PM CDT Emergency ER at [address] [address] Yasmin Matthew DO Shortness of breath; Strep pharyngitis; Nausea and vomiting, unspecified vomiting type; Myalgia; Hypomagnesemia Discharge Disposition: Home or Self Care 08/09/2024 Travel from Last 3 Months Immunizations Immunization Administration Dates Next Due INFLUENZA [...] medical care, and heating? Somewhat hard 05/16/2023 [facility] - Occupational [...] health care facility (including now)? 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 Gender Identity Not on file Sexual Orientation Not on file Last Filed Vital Signs Vital Sign Reading Time Taken Comments Blood Pressure 151/109 08/09/2024 8:30 PM CDT Pulse 89 08/09/2024 1:22 PM CDT Temperature 37.1 C (98.8 F) 08/09/2024 1:22 PM CDT Respiratory Rate 20 08/09/2024 1:22 PM CDT Oxygen Saturation 97% 08/09/2024 8:30 PM CDT Inhaled Oxygen Concentration 21% 07/30/2023 1 [...] FLEX SIG - COLON CA SCREENING 1956 Opioid Medication Agreement - Annual 1956 Opioid Medication Urine Drug Screening 1955 PNEUMOCOCCAL VACCINE 50+ (1 of 2 - PCV) 1975 DIABETES-STATIN 1996 ZOSTER VACCINE (1 of 2) 2006 Respiratory Syncytial Virus (RSV) Vaccine Pt: or over 60 yrs (1 - Risk 60-74 years 1-dose series) 2016 MAMMOGRAM 08/19/2018 08/19/2016 DIABETES RETINOPATHY SCREENING 10/04/2021 DIABETES-FOOT EXAM WITH MONOFILAMENT 10/04/2021 COVID-19 VACCINE ( season) 2023 05/04/2021, 06/29/2020 DEPRESSION SCREENING 04/24/2024 DIABETES - URINE PROTEIN SCREENING 04/24/2024 09/11/2021 MEDICARE AWV CALENDAR YEAR 2024 DIABETES-HGB A1C 08/19/2024 05/21/2024, , 05/30/2023, Additional history exists INFLUENZA VACCINE (Season Ended) 2024 01/17/2023, 01/17/2023, 01/03/2022, Additional history exists DIABETES-SERUM CREATININE 08/09/20252024, 08/02/2024, 08/02/2024, Additional history exists DTAP/TDAP/TD VACCINES (2 - [...] this topic Medical Devices Implanted Type Area Search Engineer Device Identifier Shelf Expiration Date Model / Serial / Lot Lead Nrstm 60cm Penta 3mm Pdl 16 Chnl Implanted:Qt y: 1 on 09/16/2021 by Maxi Gregg MD at [facility] Right: Spine Thoracic [employer] [id number] / / Description:CAMILO Slnt Dura Duraseal Pg Trilysine Amine 5 Implanted:Qt y: 1 on 09/16/2021 by Maxi Gregg MD at [facility] Right: Spine Thoracic [employer] David [id number] / / Description:CAMILO Proclaim Plus 5 Implanted:Qt y: 1 on 02/16/2023 by Maxi Gregg MD at [facility] Left: Back Cardenas Spine [id number] 11/07/2024 [id number] / [id number] / Explanted Type Area Search Engineer Device Identifier Shelf Expiration Date Model / Serial / Lot Gntr Nrstm [id number] Proclaim Elt Implanted:Qty: 1 on 09/16/2021 by Maxi Gregg MD at [facility] Explanted:Qty: 1 on 10/30/2021 by Maxi Gregg MD at [facility] Right: Spine Thoracic [employer] [id number] / / Description:JJ Procedures Procedure Name Priority Date/Time Associated Diagnosis Comments CARDIAC EKG ORDER 08/12/2024 7:5 5 PM CDT CARDIAC EKG ORDER 08/12/2024 7:5 0 PM CDT URINALYSIS REFLEX MICROSCOPIC REFLEX CULTURE STAT 08/09/2024 8:39 PM CDT CULTURE URINE STAT 08/09/2024 8:39 PM CDT SARS-COV-2 (COVID-19) FLU A/B RSV PCR RAPID STAT 08/09/2024 7:40 PM CDT STREP A SCREEN DIRECT W RFLX STREP A CULTURE STAT 08/09/2024 7:40 PM CDT EKG 12-LEAD STAT 08/09/2024 7:06 PM CDT Shortness of breath TROPONIN-I HIGH SENSITIVE REFLEX 1HOUR Timed 08/09/2024 3:29 PM CDT XR CHEST 2VW STAT 08/09/2024 1:59 PM CDT Shortness of breath CK BLOOD STAT 08/09/2024 1:40 PM CDT B-TYPE NATRIURETIC PEPTIDE STAT 08/09/2024 1:40 PM CDT TROPONIN-I HIGH SENSITIVE BASELINE + 1HR STAT 08/09/2024 1:40 PM CDT MAGNESIUM BLOOD STAT 08/09/2024 1:40 PM CDT COMPREHENSIVE METABOLIC PANEL STAT 08/09/2024 1:40 PM CDT CBC W AUTO DIFFERENTIAL STAT 08/09/2024 1:40 PM CDT HEPATITIS C AB SCREEN RFLX NAAT QUANT STAT 02/21/2023 6:30 PM CDT HEMOGLOBIN A1C Routine 12/25/2022 3:56 AM CDT from Last 3 Months or Most Recently Relevant to Health Maintenance Results * CARDIAC EKG ORDER (08/12/2024 7:55 PM CDT) Only the most recent of2 resultswithin the time period is included. Narrative 08/12/2024 7:55 PM CDT Ordered by an unspecified provider. us Scanned Document CARDIAC SERVICES ORDERABLES Fin al Result * (ABNORMAL) URINALYSIS REFLEX MICROSCOPIC REFLEX CULTURE (08/09/2024 8:39 PM CDT) Color UA Yellow Yellow, Straw 08/09/2024 8:46 PM CDT [facility] Clarity UA Clear Clear 08/09/2024 8:46 PM CDT [facility] Glucose UA Normal Normal 08/09/2024 8:46 PM CDT [facility] Bilirubin UA Negative Negative 08/09/2024 8:46 PM CDT [facility] Ketone UA Negative Negative 08/09/2024 8:46 PM CDT [facility] Specific [place] UA 1.014 1.005 - 1.030 08/09/2024 8:46 PM CDT [facility] Blood UA Trace(A) Negative 08/09/2024 8:46 PM CDT [facility] pH UA 7.0 5.0 - 9.0 pH 08/09/2024 8:46 PM CDT [facility] Protein UA Negative Negative 08/09/2024 8:46 PM CDT [facility] Urobilinogen UA Normal Normal mg/dL 08/09/2024 8:46 PM CDT [facility] Nitrite UA Negative Negative 08/09/2024 8:46 PM CDT [facility] Leukocyte UA 500 PAO/uL(A) Negative 08/09/2024 8:46 PM CDT [facility] RBC UA 11-20(A) 0 - 5 # /hpf 08/09/2024 8:46 PM CDT [facility] WBC UA 51-100(A) 0 - 5 # /hpf 08/09/2024 8:46 PM CDT [facility] Bacteria UA Trace(A) None Seen 08/09/2024 8:46 PM CDT [facility] Squamous Epithelial Cells None Seen 0 - 5 /hpf 08/09/2024 8:46 PM CDT [facility] Mucus UA 1+ /LPF 08/09/2024 8:46 PM CDT [facility] Urine URINE SPECIMEN OBTAINED BY CLEAN CATCH PROCEDURE / Unknown 08/09/2024 8:39 PM CDT 08/09/2024 8:39 PM CDT Narrative [facility] - 08/09/2024 8:46 PM CDT Yasmin Matthew DO LAB - URINALYSIS ORDERABLES Final Result Performing Organization Address City/State/[facility] Co de Phone Number [facility] [address] [place] [address] * (ABNORMAL) CULTURE URINE (08/09/2024 8:39 PM CDT) Pathologist [facility] Culture Urine 50,000-100,000 CFU/mL Escherichia coli(A) TERRANCE 08/12/2024 4:[address] [facility] Culture Urine 10,000-50,000 CFU/mL urogenital evelio TERRANCE 08/12/2024 4:[address] [facility] Urine URINE SPECIMEN OBTAINED BY CLEAN CATCH PROCEDURE / Unknown 08/09/2024 8:39 PM CDT 08/09/2024 8:[address] [facility] - 08/12/2024 4:04 AM CDT Organism Antibiotic Method Susceptibility Escherichia coli Amikacin TERRANCE <=2 ug/mL: Susceptible Escherichia coli Ampicillin TERRANCE 4 ug/mL: Susceptible Escherichia coli Ampicillin-sulbactam TERRANCE <=2 ug/mL: Susceptible Escherichia coli Cefazolin TERRANCE <=4 ug/mL: See Comment* Escherichia coli Cefazolin-Urine (uncomplicated infections ONLY) TERRANCE <=4 ug/mL: Susceptible Escherichia coli Cefepime TERRANCE <=1 ug/mL: Susceptible Escherichia coli Ceftriaxone TERRANCE <=1 ug/mL: Susceptible Escherichia coli Ciprofloxacin TERRANCE 0.5 ug/mL: Intermediate Escherichia coli Gentamicin TERRANCE <=1 ug/mL: Susceptible Escherichia coli Meropenem TERRANCE <=0.25 ug/mL: Susceptible Escherichia coli Nitrofurantoin TERRANCE <=16 ug/mL: Susceptible Escherichia coli Piperacillin-tazobactam TERRANCE <=4 ug/mL: Susceptible Escherichia coli Tobramycin TERRANCE <=1 ug/mL: Susceptible Escherichia coli Trimethoprim-sulfame thoxaz ole TERRANCE <=20 ug/mL: Susceptible Comment: *Cefazolin TERRANCE of </=4 cannot distinguish [...] UTIs, use alternative cefazolin susceptibility result above. us Yasmin Matthew DO LAB - MICROBIOLOGY ORDERABLE S Final Result [facility] [address] [facility] [place] [address], [facility] [phone] * SARS-COV-2 (COVID-19) FLU A/B RSV PCR RAPID (08/09/2024 7:40 PM CDT) [facility] COVID-19 PCR Not detected Not detected 08/10/19 8:24 PM CDT [facility] Influenza A PCR Not detected Not detected 08/09/2024 8:24 PM CDT [facility] Influenza B PCR Not detected Not detected 08/09/2024 8:24 PM CDT [facility] RSV PCR Not detected Not detected 08/09/2024 8:24 PM CDT [facility] Microbiology SPECIMEN FROM NASOPHARYNGEAL STRUCTURE / Unknown Collection / Unknown 08/09/2024 7:40 PM CDT 08/09/2024 7:40 PM CDT Narrative [facility] - 08/09/2024 8:24 PM CDT This nucleic acid amplification assay has been authorized by the Food and Drug administration (FDA) under an Emergency Use Authorization (EUA). This test is only authorized for the duration of time the declaration that circumstances exist justifying the authorization of emergency use of in vitro diagnostic tests for detection of SARS-CoV-2 virus and/or diagnosis of COVID-19 infection under section 564(b)(1) of the Act, 21 U.S.C 360bbb-3 (b)(1), unless the authorization is terminated or revoked sooner. Fact Sheets for this EUA assay are available upon request. [facility] - MICROBIOLOGY ORDERABLE S Final Result Performing Organization Address [facility] Co de Phone Number [facility] [address] [place] [phone] * (ABNORMAL) STREP A SCREEN DIRECT W RFLX STREP A CULTURE (08/09/2024 7:40 PM CDT) [facility] Strep A Rapid Positive(A ) Negative 08/09/2024 7:53 PM CDT [facility] Microbiology ENTIRE THROAT (SURFACE REGION OF NECK) / Unknown Collection / Unknown 08/09/2024 7:40 PM CDT 08/09/2024 7:40 PM CDT Yasmin Vipul LAB - MICROBIOLOGY ORDERABLE S Final Result Performing Organization Address [facility] Co de Phone Number [facility] [address] [place] [address] * EKG 12-LEAD (08/09/2024 7:06 PM CDT) Ventricular Rate 86 BPM [facility] Atrial Rate 86 BPM [facility] P-R Interval 122 ms HC MUSE QRS Duration ms 86 ms [facility] Q-T Interval ms 370 ms [facility] QTC Calculation (Bezet) 442 ms [facility] Calculated R [place] 8 degrees [facility] Calculated T [place] 51 degrees [facility] Interpretation EKG NORMAL SINUS RHYTHM WITH SINUS ARRHYTHMIA SEPTAL INFARCT , AGE UNDETERMINED ABNORMAL ECG WHEN COMPARED WITH ECG OF 09-AUG-2024 13:34, SINUS RHYTHM HAS REPLACED ECTOPIC ATRIAL RHYTHM SEPTAL INFARCT IS NOW PRESENT Confirmed by Gil Perrin MD ([id number]) on 08/10/2024 9:03:52 AM [facility] 08/09/2024 7:06 PM CDT 08/10/2024 9:03 AM CDT Josué Bernal PA-C ECG ORDERABLES Edited Re sult - Final [facility] * TROPONIN-I HIGH SENSITIVE REFLEX 1HOUR (08/09/2024 3:29 PM CDT) [facility] Troponin I High Sensitive 5 <=14 ng/L 08/09/2024 4:50 PM CDT [facility] Delta Troponin I HS 08/09/2024 4:50 PM CDT [facility] Comment:Delta value intentio yissel not calculated. Baseline to 1 hour specimen collection interval exceeded. Blood BLOOD SPECIMEN / Unknown Venipuncture / Unknown 08/09/2024 3:29 PM CDT 08/09/2024 3:33 PM CDT Josué Bernal PA-C LAB - CHEMISTRY ORDERABLE S Final Result Performing Organization Address City/[facility]/ZIP Co de Phone Number [facility] [address] [place] [phone] * XR CHEST 2VW (08/09/2024 1:59 PM CDT) Anatomical Region Laterality Modality Chest Radiographic Lizeth ging 08/09/2024 2:22 PM CDT Impressions 08/09/2024 2:24 PM CDT IMPRESSION: No evidence of acute pulmonary disease. > Interpreting Provider: Justen Lynch MD on 08/09/2024 2:24 PM Narrative 08/09/2024 2:24 PM CDT PROCEDURE: XR CHEST 2VW DATE/TIME OF EXAM: 08/09/2024 1:59 PM CLINICAL INFORMATION: None relevant/not provided if blank. Indication: R06.02: Shortness of breath Additional History: COMPARISON: 05/28/2023 FINDINGS: Spinal stimulator lead is again noted. No confluent consolidation or definite effusion/pneumothorax is seen. The cardiomediastinal silhouette is within normal limits for technique.No acute osseous abnormality is identified. Procedure Note Justen Lynch MD - 08/09/2024 PROCEDURE: XR CHEST 2VW DATE/TIME OF EXAM: 08/09/2024 1:59 PM CLINICAL INFORMATION: None relevant/not provided if blank. Indication: R06.02: Shortness of breath Additional History: COMPARISON: 05/28/2023 FINDINGS: Spinal stimulator lead is again noted. No confluent consolidation or definite effusion/pneumothorax is seen.The cardiomediastinal silhouette is within normal limits for technique.Noacute osseous abnormality is identified. IMPRESSION: No evidence of acute pulmonary disease. > Interpreting Provider: Justen Lynch MD on 08/09/2024 2:24 PM Josué Bernal PA-C DIAGNOSTIC IMAGING ORDERA BLES Final Result * TROPONIN-I HIGH SENSITIVE BASELINE + 1HR (08/09/2024 1:40 PM CDT) [facility] Troponin I High Sensitive 6 <=14 ng/L 08/09/2024 2:14 PM CDT [facility] Blood BLOOD SPECIMEN / Unknown Venipuncture / Unknown 08/09/2024 1:40 PM CDT 08/09/2024 1:43 PM CDT Josué Bernal PA-C LAB - CHEMISTRY ORDERABLE S Final Result [facility] [address] [place] [address] * (ABNORMAL) CBC W AUTO DIFFERENTIAL (08/09/2024 1:40 PM CDT) [facility] WBC 15.6(H) 4.0 - 10.7 x10E9/L 08/09/2024 1:47 PM CDT [facility] RBC Count 4.44 3.90 - 5.20 x10E12/L 08/09/2024 1:47 PM CDT [facility] Hemoglobin 13.0 11.9 - 15.8 g/dL 08/09/2024 1:47 [facility] Hematocrit 40.4 34.8 - 46.1 % 08/09/2024 1:47 PM [facility] MCV 91.0 80.0 - 98.0 fL 08/09/2024 1:47 PM CDT [facility] MCH 29.3 26.7 - 33.6 pg 08/09/2024 1:47 PM [facility] MCHC 32.2 31.7 - 36.3 g/dL 08/09/2024 1:47 PM [facility] RDW-CV 13.0 11.3 - 14.8 % 08/09/2024 1:47 PM [facility] Platelet Count 249 150 - 420 x10E9/L 08/09/2024 1:47 PM [facility] MPV 9.6 7.8 - 11.4 fL 08/09/2024 1:47 PM [facility] Neutrophil % 72.7 41.0 - 74.0 % 08/09/2024 1:47 PM CDT [facility] Lymphocyte % 18.0 17.0 - 47.0 % 08/09/2024 1:47 PM [facility] Monocyte % 7.5 3.0 - 11.0 % 08/09/2024 1:47 PM [facility] Eosinophil % 1.2 0.0 - 7.0 % 08/09/2024 1:47 PM CDT [facility] Basophil % 0.2 0.0 - 1.6 % 08/09/2024 1:47 PM [facility] Immature Granulocytes % 0.4 0.0 - 1.0 % 08/09/2024 1:47 PM [facility] Neutrophil Absolute 11.35(H) 1.60 - 7.50 x10E9/L 08/09/2024 1:47 PM CDT [facility] Lymphocyte Absolute 2.82 1.00 - 4.40 x10E9/L 08/09/2024 1:47 PM CDT [facility] Monocyte Absolute 1.18(H) 0.15 - 1.00 x10E9/L 08/09/2024 1:47 PM CDT [facility] Eosinophil Absolute 0.19 0.00 - 0.60 x10E9/L 08/09/2024 1:47 PM CDT [facility] Basophil Absolute 0.03 0.00 - 0.13 x10E9/L 08/09/2024 1:47 PM CDT [facility] Blood BLOOD SPECIMEN / Unknown Venipuncture / Unknown 08/09/2024 1:40 PM CDT 08/09/2024 1:43 PM CDT Josué Bernal PA-C LAB - HEMATOLOGY ORDERABL ES Final Result Performing Organization Address [facility] Co de Phone Number [facility] [address] [place] [phone] * B-TYPE NATRIURETIC PEPTIDE (08/09/2024 1:40 PM CDT) BNP 29 <=100 pg/mL 08/09/2024 2:11 PM CDT [facility] Blood BLOOD SPECIMEN / Unknown Venipuncture / Unknown 08/09/2024 1:40 PM CDT 08/09/2024 1:43 PM CDT Narrative [facility] - 08/09/2024 2:11 PM CDT A cutoff of 100 pg/mL has been demonstrated to provide the maximal combination of sensitivity, specificity, and negative predictive value for contributing to the diagnosis of congestive heart failure (CHF) only. A B-Type Natriuretic Peptide (BNP) value greater than or equal to 100 pg/mL is consistent with a diagnosis of CHF in the appropriate clinical setting. False positive results are more common in females greater than 75 years of age. Blood concentrations of natriuretic peptides may also be elevated in patients with myocardial infarction and in patients who are candidates for or are undergoing renal dialysis. Josué Bernal PA-C LAB - CHEMISTRY ORDERABLE S Final Result Performing Organization Address [facility] Co de Phone Number [facility] [address] [place] [phone] * (ABNORMAL) COMPREHENSIVE METABOLIC PANEL (08/09/2024 1:40 PM CDT) [facility] Signature Glucose 212(H) 70 - 99 mg/dL 08/09/2024 2:09 PM CDT [facility] Sodium 136 136 - 145 mmol/L 08/09/2024 2:09 PM CDT [facility] Potassium 3.9 3.5 - 5.1 mmol/L 08/09/2024 2:09 PM CDT [facility] Chloride 103 98 - 107 mmol/L 08/09/2024 2:09 PM T [facility] CO2 24 22 - 29 mmol/L 08/09/2024 2:09 PM [facility] Calcium 9.4 8.4 - 10.4 mg/dL 08/09/2024 2:09 PM [facility] Anion Gap 9 6 - 16 mmol/L 08/09/2024 2:09 PM [facility] BUN 19 7 - 26 mg/dL 08/09/2024 2:09 PM [facility] Creatinine 0.82 0.57 - 1.11 mg/dL 08/09/2024 2:09 PM [facility] Alkaline Phosphatase 68 40 - 150 U/L 08/09/2024 2:09 PM CDT [facility] ALT 22 6 - 57 U/L 08/09/2024 2:09 PM [facility] AST 23 10 - 48 U/L 08/09/2024 2:09 PM [facility] Protein Total 8.0 6.4 - 8.3 gm/dL 08/09/2024 2:09 PM [facility] Albumin 3.3(L) 3.4 - 5.0 gm/dL 08/09/2024 2:09 PM [facility] Bilirubin Total 0.9 0.2 - 1.2 mg/dL 08/09/2024 2:09 PM [facility] eGFR by CKD-EPI 78(L) >=90 mL/min/1.7 3 m2 08/09/2024 2:09 PM [facility] Blood BLOOD SPECIMEN / Unknown Venipuncture / Unknown 08/09/2024 1:40 PM CDT 08/09/2024 1:43 PM CDT Josué S Dolores MCKEON-C LAB - CHEMISTRY ORDERABLE S Final Result Performing Organization Address [facility]/[place]UST de Phone Number [facility] [address] [place] [phone] * (ABNORMAL) MAGNESIUM BLOOD (08/09/2024 1:40 PM CDT) [facility] Magnesium 1.5(L) 1.6 - 2.6 mg/dL 08/09/2024 2:09 PM CDT [facility] Blood BLOOD SPECIMEN / Unknown Venipuncture / Unknown 08/09/2024 1:40 PM CDT 08/09/2024 1:43 PM CDT Josué S Dolores MCKEON-C LAB - CHEMISTRY ORDERABLE S Final Result Performing Organization Address [facility] de Phone Number [facility] [address] [place] [phone] * CK BLOOD (08/09/2024 1:40 PM CDT) [facility] CK 107 29 - 168 U/L 08/09/2024 7:44 PM CDT [facility] Blood BLOOD SPECIMEN / Unknown Venipuncture / Unknown 08/09/2024 1:40 PM CDT 08/09/2024 1:43 PM CDT Yasmin Matthew DO LAB - CHEMISTRY ORDERABLES F inal Result Performing Organization Address [facility] Co de Phone Number [facility] [address] [place] [phone] * HEPATITIS C AB SCREEN RFLX NAAT QUANT (02/21/2023 6:30 PM CDT) [facility] Hepatitis C Antibody Non-react hugh Non-reac tive 02/21/2023 7:32 PM CDT [facility] Comment:Hepatitis C Antibody screen [...] ORDERABLES Fi nal Result Performing Organization Address City/[facility]/ZIP Co de Phone Number [facility] [address] [place] [phone], [place] [phone] * (ABNORMAL) HEMOGLOBIN A1C (12/25/2022 3:56 AM CDT) Hemoglobin A1c 8.6(H) <=5.6 % 12/25/2022 2:47 PM CDT [facility] Estimated Average Glucose 200 mg/dL 12/25/2022 2:47 PM CDT [facility] Comment: HbA1c Interpretation: Normal : < 5.7% Pre-diabetes: 5.7-6.4% Diabetes: Equal to or greater than 6.5% Test results diagnostic of diabetes should be repeated for confirmation. Treatment target values recommended by ADA and other clinical organizations should be used to evaluate metabolic control in patients. Reference: [place] [employer], Standards of Care in Diabetes [...] LAB - CHEMISTRY ORDERA BLES Final Result Performing Organization Address City/[facility]/ZIP Co de Phone Number [facility] [address] [place] [phone], [place] [phone] from Last 3 Months or Most Recently [...] 3:37 AM 03/23/2023 7:14 PM Care Teams Prison Guard Supervisor Relationship Specialty Start Date End Date Justen Gale MD PCP - General 07/05/21
--- OUTSIDE RECORDS SUMMARY | 2024-08-13 21:53 | XMS_ITS | Encounter Summary ---
Author Organization [facility] Address [address] [place] [address] Phone Care Team Providers Care Scrap Shear Operator Name Role Phone Justen Gale MD Primary Care Provider [phone] David Roberts APRN, CONTACT PERSON Unavailable [phone] Annel Rod MD Unavailable Reason for Visit * Reason Onset Date Comments Results 08/02/2024 Encounter Details Date Type Department Care Team (Late st Contact Info) Description 08/02/2024 Telephone [facility] [address] [place] [address] Justen Gale MD #[address] [address] Results Social History Tobacco Use Types Packs/Day Years Used Date Smoking Tobacco: Never Smokeless Tobacco: Never Alcohol Use Standard Drinks/Week Comments No 0 (1 standard drink = 0.6 oz pur e alcohol) [facility] Utilities Answer Date Recorded In the [...] How often do you attend chur or yazidism services? More than 4 times per year 08/06/2024 Do you belong to any clubs o r organizations such as buddhist groups, unions, fraternal or athletic groups, or [...] Total Score - Questions 1-9 0 07/23 [facility] - Occupational [...] any time in the past 12 m [facility], were you homeless or living in a detention (including now)? No 08/06/2024 Education Answer Date [...] Visit [facility] - [place] #2 [place] [address] Annel Rod MD #[address] [address] 09/24/2024 2:00 PM CDT [facility]ment [facility] 1 [place] [address] Angelito Alegria APRN, CONTACT PERSON #[address] [address] Discharge Disposition: Discharged to home or Selfcare documented as of this encounter Visit Diagnoses Not on filedocumented in this encounter Additional Health Concerns Assessment Noted Time PHQ-9 Depression Total Score: 0 08/02/19 25 1:09 PM CDT documented as of this encounter Care Teams Scrap Shear Operator Relationship Specialty Start Date End Date Justen Gale MD #[address] [address] PCP - General Family Medicine 10/17/17 David Roberts APRN, CONTACT PERSON #2 [place] [address] Nurse Practitioner Advanced Practice Nurse 01/31/22 Annel Rod MD #[address] [address] Consulting Physician Endocrinology 07/01/22 documented as of this encounter
--- OUTSIDE RECORDS SUMMARY | 2024-08-13 21:53 | XMS_ITS | Encounter Summary ---
Author Organization [facility] Address [address] [place] [address] Phone Care Team Providers Care Gasoline Locomotive Crane Operator Name Role Phone Justen Gale MD Primary Care Provider [phone] David Roberts APRN, HORSE TRAINER Unavailable [phone] Annel Rod MD Unavailable Encounter Details Date Type Department Care Team (Late st Contact Info) Description 06/05/2020 [facility] 1 [place] [address] Pili Elkins APRN, HORSE TRAINER #[address] [address] Frequency of micturition Social History [...] COVID-19? No / Unsure 2020 11:37 AM EXHAUST EMISSIONS INSPECTOR documented as of this encounter Plan of Treatment Upcoming Encounters Date Type Department Care Team (Late st Contact Info) Description 09/18/2024 2:45 PM CDT Office Visit [facility] - [place] #2 [place] [address] Annel Rod MD #2 [facility] [address] [place] [address] 09/24/2024 2:00 PM CDT [facility]ment [facility] 1 [place] [address] nAgelito Alegria, ZAMZAM, HORSE TRAINER #2 [facility] [address] [place] [address] Discharge Disposition: Discharged to home or Selfcare documented as of this encounter Procedures Procedure Name Priority Date/Time Associated Diagnosis Comments URINALYSIS REFLEX IF INDICATED BY ABNORMAL RESULTS Routine 06/05/2020 4:45 PM EXHAUST EMISSIONS INSPECTOR Frequency of micturition documented in this encounter Results * (ABNORMAL) URINALYSIS REFLEX IF INDICATED BY ABNORMAL RESULTS (06/05/2020 4:45 PM EXHAUST EMISSIONS INSPECTOR) SPECIFIC GRAVITY 1.020 1.003 - 1.030 06/05/2020 5:19 PM EXHAUST EMISSIONS INSPECTOR [facility] URINE PH 5.0 5.0 - 9.0 06/05/2020 5:19 PM EXHAUST EMISSIONS INSPECTOR [facility] WBC ESTERASE Negative Negative 06/05/2020 5:19 PM EXHAUST EMISSIONS INSPECTOR [facility] NITRITE Negative Negative 06/05/2020 5:19 PM EXHAUST EMISSIONS INSPECTOR [facility] PROTEIN, RANDOM URINE Negative Negative 06/05/2020 5:19 PM EXHAUST EMISSIONS INSPECTOR [facility] URINE GLUCOSE, QUAL Negative Negative 06/05/2020 5:19 PM EXHAUST EMISSIONS INSPECTOR [facility] URINE KETONES Negative Negative 06/05/2020 5:19 PM EXHAUST EMISSIONS INSPECTOR [facility] UROBILINOGEN Normal Normal mg/dL 06/05/2020 5:19 PM EXHAUST EMISSIONS INSPECTOR [facility] URINE BILIRUBIN Negative Negative 5:19 PM EXHAUST EMISSIONS INSPECTOR [facility] URINE BLOOD 25 /uL(A) Negative leandro/ul 06/05/2020 5:19 PM EXHAUST EMISSIONS INSPECTOR [facility] URINALYSIS COLOR Yellow 06/05/19 5:19 PM EXHAUST EMISSIONS INSPECTOR [facility] URINALYSIS CLARITY Clear 06/05/2020 5:19 PM EXHAUST EMISSIONS INSPECTOR [facility] WBC (Urine) 0-5 Negative, 0-5 /hpf 06/05/2020 5:19 PM EXHAUST EMISSIONS INSPECTOR [facility] URINE RBC'S 3-5(A) Negative, 0-2 /hpf 06/05/2020 5:19 PM EXHAUST EMISSIONS INSPECTOR [facility] EPITHELIAL CELLS Small amount /lpf 2020 5:19 PM EXHAUST EMISSIONS INSPECTOR [facility] BACTERIA, URINE Few(A) Negative /hpf 06/05/2020 5:19 PM EXHAUST EMISSIONS INSPECTOR [facility] Urine URINE SPECIMEN / Unknown Non-Phlebotomy Collection / Unknown 06/05/2020 4:45 PM EXHAUST EMISSIONS INSPECTOR 06/05/2020 5:00 PM EXHAUST EMISSIONS INSPECTOR us Pili Elkins BOUNTY HUNTER, HORSE TRAINER URINE ORDERABLES Fin al Result [facility] #1 [place] [address] documented in this encounter Visit Diagnoses Diagnosis Frequency of micturition Urinary frequency documented in this encounter Additional Health Concerns Infection Onset Date Last Indicated Resolved Time COVID - 19 08/01/2024 08/01/2024 08/01/2024 3:20 PM CDT Assessment Noted Time PHQ-9 Depression Total Score: 0 09/08/19 19 1:00 PM CDT documented as of this encounter Care Teams Gasoline Locomotive Crane Operator Relationship Specialty Start Date End Date Justen Gale MD #2 [facility] [address] [place] [address] PCP - General Family Medicine 10/17/17 David Roberts, BOUNTY HUNTER, HORSE TRAINER #2 [place] [address] Nurse Practitioner Advanced Practice Nurse 01/31/22 Annel Rod MD #2 [facility] [address] [place] [address] Consulting Physician Endocrinology 07/01/22 documented as of this encounter
--- OUTSIDE RECORDS SUMMARY | 2024-08-13 21:53 | XMS_ITS | Encounter Summary ---
Author Organization [facility] Address [address] [place] [address] Phone Care Team Providers Care Resp Ther Name Role Phone Justen Gale MD Primary Care Provider [phone] David Roberts APRN, MULTIMEDIA ASSISTANT Unavailable [phone] Annel Rod MD Unavailable Reason for Visit * Reason Comments Medication Refill Encounter Details Date Type Department Care Team (Late st Contact Info) Description 02/17/2021 [facility]ill [facility]2 [place] [address] Justen Gale MD #[address] [address] Medication Refill Social History Tobacco Use Types [...] Mcgee 06/05/20 Office Visit Pili Elkins APRN, MULTIMEDIA ASSISTANT [facility] Showing recent visits within past 365 days and meeting all other requirements Future Appointments Date Type Provider Dept 03/02/21 Appointment Vince Hermosillo MD [facility] Showing future appointments within next 90 days and meeting all other requirements documented in this encounter Plan of Treatment Upcoming Encounters Date Type Department Care Team (Late st Contact Info) Description 09/18/2024 2:45 PM CDT Office Visit [facility] #2 [place] [address] Annel Rod MD #2 [facility] [address] [place] [address] 09/24/2024 2:00 PM CDT Appointment [facility] Cardiology Services 1 [place] [address] Angelito Alegria, BIOINFORMATICS PROGRAMMER, MULTIMEDIA ASSISTANT #2 [facility] [address] [place] [address] Discharge Disposition: Discharged to home or Selfcare documented as of this encounter Visit Diagnoses Not on filedocumented in this encounter Additional Health Concerns Infection Onset Date Last Indicated Resolved Time COVID - 19 08/01/2024 08/01/2024 08/01/2024 3:20 PM CDT Assessment Noted Time PHQ-9 Depression Total Score: 0 07/21/19 3:00 PM CDT documented as of this encounter Care Teams Resp Ther Relationship Specialty Start Date End Date Justen Gale MD #[address] [address] PCP - General Family Medicine 10/17/17 David Roberts BIOINFORMATICS PROGRAMMER, MULTIMEDIA ASSISTANT #2 [place] [address] Nurse Practitioner Advanced Practice Nurse 01/31/22 Annel Rod MD #[address] [address] Consulting Physician Endocrinology 07/01/22 documented as of this encounter
--- OUTSIDE RECORDS SUMMARY | 2024-08-13 21:53 | XMS_ITS | Encounter Summary ---
Author Organization [facility] Address [address] [place] [address] Phone Care Team Providers Care Artificial Stone Setter Name Role Phone Justen Gale MD Primary Care Provider [phone] David Roberts APRN, SOCIAL WORK ASSISTANT Unavailable [phone] Annel Rod MD Unavailable Reason for Visit * Reason Comments Medication Refill Encounter Details Date Type Department Care Team (Late st Contact Info) Description 02/07/2020 Refill [facility] [address] [place] [address] Justen Gale MD #[address] [address] Medication Refill Social History Tobacco Use Types [...] Visit [facility] - [place] #2 [place] [address] Annel Rod MD #[address] [address] 09/24/2024 2:00 PM CDT [facility] 1 [place] [address] Angelito Alegria APRN, SOCIAL WORK ASSISTANT #2 [facility] [address] [place] [address] Discharge Disposition: Discharged to home or Selfcare documented as of this encounter Visit Diagnoses Not on filedocumented in this encounter Additional Health Concerns Infection Onset Date Last Indicated Resolved Time COVID - 19 08/01/2024 08/01/2024 08/01/2024 3:20 PM CDT Assessment Noted Time PHQ-9 Depression Total Score: 0 09/08/19 1:00 PM CDT documented as of this encounter Care Teams Artificial Stone Setter Relationship Specialty Start Date End Date Justen Gale MD #[address] [address] PCP - General Family Medicine 10/17/17 David Roberts APRN, NETTA #2 [facility] [place] [address] Nurse Practitioner Advanced Practice Nurse 01/31/22 Annel Rod MD #[address] [address] Consulting Physician Endocrinology 07/01/22 documented as of this encounter
--- OUTSIDE RECORDS SUMMARY | 2024-08-13 21:54 | XMS_ITS | Encounter Summary ---
Author Organization [facility] Address [address] [place] [address] Phone Care Team Providers Care Front Elevator Operator Name Role Phone Justen Gale MD Primary Care Provider [phone] David Roberts APRN, CHARGING MACHINE OPERATOR Unavailable [phone] Annel Rod MD Unavailable Reason for Visit * Reason Onset Date Comments Breathing Problem 08/07/2024 Muscle Pain 08/07/2024 Encounter Details Date Type Department Care Team (Late st Contact Info) Description 08/07/2024 Nurse Triage [facility] [address] [place] [address] Justen Gale MD #[address] [address] Breathing Problem; Muscle Pain Social History Tobacco Use Types Packs/Day Years Used Date Smoking Tobacco: Never Smokeless Tobacco: Never Alcohol Use Standard Drinks/Week Comments No 0 (1 standard drink = 0.6 oz pur e alcohol) [facility] Utilities Answer Date Recorded In [...] you attend chur ch or nondenominational services? More than 4 times per year [...] Total Score - Questions 1-9 0 07/23 [facility] - [...] the past 12 m [facility], were you homeless or living in a [...] and 08/03/2024. Last Office Visit: 08/07/2024 with Angeilto Alegria (see notes). She reports it was [...] She reports this was discussed with the commercial front load operator and provider was to be notified in [...] Encouraged caller to bring cell phone and extractor puller to contact EMS 911 if symptoms [...] (e.g., disoriented, slurred speech) Protocols used: Breathing [id number] * Telephone Encounter - Neha Tomlinson - 08/07/2024 1:30 PM CDT Symptoms: Altered Mental Status, Body Aches, Breathing Trouble Outcome: Warm transfer to an emergent RN NOW! Reason: Trouble walking The caller accepted this outcome. documented in this encounter Plan of Treatment Upcoming Encounters Date Type Department Care Team (Late st Contact Info) Description 09/18/2024 2:45 PM CDT Office Visit [facility] - Endocrinology [facility] #2 [place] [address] Annel Rod MD #2 [facility] [address] [place] [address] 09/24/2024 2:00 PM CDT [facility] 1 [place] [address] Angelito Alegria APRN, CHARGING MACHINE OPERATOR #2 [facility] [address] [place] [address] Discharge Disposition: Discharged to home or Selfcare documented as of this encounter Visit Diagnoses Not on filedocumented in this encounter Additional Health Concerns Assessment Noted Time PHQ-9 Depression Total Score: 0 08/02/19 25 1:09 PM CDT documented as of this encounter Care Teams Front Elevator Operator Relationship Specialty Start Date End Date Justen Gale MD #2 [facility] [address] [place] [address] PCP - General Family Medicine 10/17/17 David Roberts APRN, NETTA #2 [place] [address] Nurse Practitioner Advanced Practice Nurse 01/31/22 Annel Rod MD #2 [facility] [address] [place] [address] Consulting Physician Endocrinology 07/01/22 documented as of this encounter
--- OUTSIDE RECORDS SUMMARY | 2024-08-13 21:54 | XMS_ITS | Encounter Summary ---
Author Organization [facility] Address [address] [place] [address] Phone Care Team Providers Care Pari Mutuel Ticket Cashier Name Role Phone Justen Gale MD Primary Care Provider [phone] David Roberts APRN, BI SOLUTIONS ARCHITECT Unavailable [phone] Annel Rod MD Unavailable Reason for Visit * Reason Comments Medication Refill Encounter Details Date Type Department Care Team (Late st Contact Info) Description 02/07/2023 Refill [facility] Family Medicine [facility] #2 [place] [address] Catrina Quiñonez MD #2 [place] [address] Medication Refill Social History Tobacco Use Types [...] 03/03/22 Office Visit Pili Elkins APRN, NETTA [facility] [place] Showing recent visits within past 365 [...] Visit [facility] - [place] #2 [place] [address] Annel Rod MD #[address] [address] 09/24/2024 2:00 PM CDT Appointment [facility] Cardiology Services 1 [place] [address] Angelito Alegria, ENTERTAINER OR VARIETY ARTIST, BI SOLUTIONS ARCHITECT #[address] [address] Discharge Disposition: Discharged to home or Selfcare documented as of this encounter Visit Diagnoses Not on filedocumented in this encounter Additional Health Concerns Infection Onset Date Last Indicated Resolved Time COVID - 19 08/01/2024 08/01/2024 08/01/2024 3:20 PM CDT Assessment Noted Time PHQ-9 Depression Total Score: 8 01/18/20 23 2:24 PM CDT documented as of this encounter Care Teams Pari Mutuel Ticket Cashier Relationship Specialty Start Date End Date Justen Gale MD #[address] [address] PCP - General Family Medicine 10/17/17 David Roberts ENTERTAINER OR VARIETY ARTIST, BI SOLUTIONS ARCHITECT #2 [place] [address] Nurse Practitioner Advanced Practice Nurse 01/31/22 Annel Rod MD #[address] [address] Consulting Physician Endocrinology 07/01/22 documented as of this encounter
--- OUTSIDE RECORDS SUMMARY | 2024-08-13 21:54 | XMS_ITS | Encounter Summary ---
Author Organization [facility] Address [address] [place] [address] Phone Care Team Providers Care Spray Pilot Name Role Phone Justen Gale MD Primary Care Provider [phone] David Roberts APRN, GEOLOGY INSTRUCTOR Unavailable [phone] Annel Rod MD Unavailable Reason for Visit * Reason Comments Medication Refill Encounter Details Date Type Department Care Team (Late st Contact Info) Description 07/06/2023 Refill [facility] #2 [place] [address] Justen Gale MD #[address] [address] Medication Refill Social History Tobacco Use Types [...] AM CDT Medication[facility]) [facility] Medication Refill Standing Order for [...] Dept 06/27/23 Office Visit Justen Gale MD [facility] [place] 01/17/23 Office Visit Catrina Quiñonez MD [facility] [place] Showing recent visits within past 270 [...] Description 09/18/2024 2:45 PM CDT Office Visit [facility] - Endocrinology - [place] #[address] [place] [address] Anenl Rod MD #[address] [address] 09/24/2024 2:00 PM CDT Appointment [facility] Cardiology Services 1 [place] [address] Angelito Alegria, CASH APPLICATION REPRESENTATIVE, GEOLOGY INSTRUCTOR #2 [facility] [address] [place] [address] Discharge Disposition: Discharged to home or Selfcare documented as of this encounter Visit Diagnoses Not on filedocumented in this encounter Additional Health Concerns Infection Onset Date Last Indicated Resolved Time COVID - 19 08/01/2024 08/01/2024 08/01/2024 3:20 PM CDT Assessment Noted Time PHQ-9 Depression Total Score: 8 01/18/20 23 2:24 PM CDT documented as of this encounter Care Teams Spray Pilot Relationship Specialty Start Date End Date Justen Gale MD #[address] [address] PCP - General Family Medicine 10/17/17 David Roberts APRN, GEOLOGY INSTRUCTOR #2 [place] [address] Nurse Practitioner Advanced Practice Nurse 01/31/22 Annel Rod MD #[address] [address] Consulting Physician Endocrinology 07/01/22 documented as of this encounter
--- OUTSIDE RECORDS SUMMARY | 2024-08-13 21:54 | XMS_ITS ---
Author Organization [facility] Address [address] [facility] [place] [address] Care Team Providers Care Conveyor System Operator Name Role Phone Justen Gale MD Primary Care Provider [phone] Active Problems Problem Noted Date Diagnosed Date [...]
--- OUTSIDE RECORDS SUMMARY | 2024-08-13 21:54 | XMS_ITS | Encounter Summary ---
Author Organization [facility] Address [address] [place] [address] Phone Care Team Providers Care Ironworker Apprentice Shop Name Role Phone Justen Gale MD Primary Care Provider [phone] David Roberts APRN, TELEGRAPH OPERATOR Unavailable [phone] Annel Rod MD Unavailable Reason for Visit * Reason Comments Medication Refill Encounter Details Date Type Department Care Team (Late st Contact Info) Description 02/07/2023 Refill [facility] #2 [place] [address] Pili Elkins APRN, TELEGRAPH OPERATOR #[address] [address] Medication Refill Social History Tobacco [...] Visit [facility] Endocrin[facility] #2 [place] [address] Annel Rod MD #2 [facility] [address] [place] [address] 09/24/2024 2:00 PM CDT Appointment [facility] Cardiology Services 1 [place] [address] Angelito Alegria APRN, TELEGRAPH OPERATOR #2 [facility] [address] [place] [address] Discharge Disposition: Discharged to home or Selfcare documented as of this encounter Visit Diagnoses Diagnosis Essential hypertension Unspecified essential hypertension documented in this encounter Additional Health Concerns Infection Onset Date Last Indicated Resolved Time COVID - 19 08/01/2024 08/01/2024 08/01/2024 3:20 PM CDT Assessment Noted Time PHQ-9 Depression Total Score: 8 01/18/20 2:24 PM CDT documented as of this encounter Care Teams Ironworker Apprentice Shop Relationship Specialty Start Date End Date Justen Gale MD #2 [facility] [address] [place] [address] PCP - General Family Medicine 10/17/17 David Roberts APRN, TELEGRAPH OPERATOR #2 [place] [address] Nurse Practitioner Advanced Practice Nurse 01/31/22 Annel Rod MD #2 [facility] [address] [place] [address] Consulting Physician Endocrinology 07/01/22 documented as of this encounter
--- OUTSIDE RECORDS SUMMARY | 2024-08-13 21:54 | XMS_ITS | Encounter Summary ---
Author Organization [facility] Address [address] [place] [address] Phone Care Team Providers Care Lion Hunter Name Role Phone Justen Gale MD Primary Care Provider [phone] David Roberts APRN, STRUCTURAL IRON ERECTOR Unavailable [phone] Annel Rod MD Unavailable Reason for Visit * Reason Comments Medication Refill Encounter Details Date Type Department Care Team (Late st Contact Info) Description 03/02/2023 Refill [facility] #2 [place] [address] Justen Gale MD #[address] [address] Medication Refill Social History Tobacco Use Types [...] Tamika Villarreal RN - 03/02/2023 8:51 AM DEVELOPMENT INTERN Medication failed the protocol, provider to review [...] Dept 01/17/23 Office Visit Catrina Quiñonez MD [facility] 09/16/22 Office Visit Pili Elkins APRN, CNP [facility] 07/05/22 Office Visit Pili Elkins APRN, NETTA [facility] 05/02/22 Office Visit Justen Gale MD [facility] 03/03/22 Office Visit Pili Elkins APRN, NETTA [facility] Showing recent visits within past 365 days and meeting all other requirements Future Appointments No visits were found meeting these conditions. Showing future appointments within next 90 days and meeting all other requirements LOPMENT INTERN documented in this encounter Plan of Treatment Upcoming Encounters Date Type Department Care Team (Late st Contact Info) Description 09/18/2024 2:45 PM CDT [facility] Visit [facility] - [place] #2 [place] [address] Annel Rod MD #[address] [address] 09/24/2024 2:00 PM CDT Appointment [facility] Cardiology Services 1 [place] [address] Angelito Alegria, GOLD LETTERER, STRUCTURAL IRON ERECTOR #[address] [address] Discharge Disposition: Discharged to home or Selfcare documented as of this encounter Visit Diagnoses Not on filedocumented in this encounter Additional Health Concerns Infection Onset Date Last Indicated Resolved Time COVID - 19 08/01/2024 08/01/2024 08/01/2024 3:20 PM CDT Assessment Noted Time PHQ-9 Depression Total Score: 8 01/18/20 2:24 PM CDT documented as of this encounter Care Teams Lion Hunter Relationship Specialty Start Date End Date Justen Gale MD #[address] [address] PCP - General Family Medicine 10/17/17 David Roberts APRN, STRUCTURAL IRON ERECTOR #2 [place] [address] Nurse Practitioner Advanced Practice Nurse 01/31/22 Annel Rod MD #[address] [address] Consulting Physician Endocrinology 07/01/22 documented as of this encounter
--- OUTSIDE RECORDS SUMMARY | 2024-08-13 21:54 | XMS_ITS | Encounter Summary ---
Author Organization [facility] Address [address] [place] [address] Care Team Providers Care Automatic Pilot Mechanic Name Role Phone Justen Gale MD Primary Care Provider [phone] Reason for Visit * Reason Onset Date Comments ER UC Follow-up 08/13/2024 Encounter Details Date Type Department Care Team (Late st Contact Info) Description 08/13/2024 Telephone ER at [facility][note 3] [address] [place] [id number] Jordana Abdul MD [address] [place], [place] [id number] ER UC Follow-up Social History Tobacco Use Types Packs/Day [...] medical care, and heating? Somewhat hard 05/16/2023 [facility] - Occupational Stress [...] in a [facility] (including now)? No 05/16/2023 Comments No Sex and Gender Information Value Date Recorded Sex Assigned at Not on file Legal Sex Female 6:53 PM TAX MAP TECHNICIAN Gender Identity Not on file Sexual Orientation Not on file documented as of this encounter Functional Status * Is person deaf or have serious hearing difficulty? Answer Date of Assessment Author No 02/22/2023 5:59 AM Milena Dockery RN * Is person blind or have serious difficulty seeing? Answer Date of Assessment Author No 02/22/2023 5:59 AM Milena Dockery RN * Does person have serious difficulty walking/climbing stairs? Answer Date of Assessment Author Yes 02/22/2023 5:59 AM Milena Dockery RN * Does person have difficulty dressing/bathing? Answer Date of Assessment Author Yes 02/22/2023 5:59 AM CDT Milena Bunn RN * Does person have difficulty doing errands alone? Answer Date of Assessment Author No 02/22/2023 5:59 AM CDT Milena Bunn RN documented as of this encounter Mental Status * Does person have difficulty concentrating/remembering/making decisions? Answer Entry Date Author No 02/22/2023 5:59 AM CDT Milena Bunn RN documented in this encounter Miscellaneous Notes * Telephone Encounter - Jordana Abdul MD - 08/13/2024 5:57 PM CDT Called for [facility] follow up. Patient voiced that she was not tx for UTI, but has since gone to outsideED and been prescribed amoxicillin for her strep and UTI sx. Urine cx reviewed, appears pansensitive with intermediate susceptibility to cipro. Pt states she has tolerated amox in the past, and denies any fevers or worsening sx. Encouraged to seek medical attention with worsening sx. documented in this encounter Plan of Treatment Not on file documented as of this encounter Visit Diagnoses Not on filedocumented in this encounter Care Teams Automatic Pilot Mechanic Relationship Specialty Start Date End Date Justen Gale MD PCP - General 07/05/21 documented as of this encounter
--- OUTSIDE RECORDS SUMMARY | 2024-08-13 21:54 | XMS_ITS | Encounter Summary ---
Author Organization [facility] Address [address] [place] [address] Phone Care Team Providers Care Tufting Creeler Name Role Phone Justen Gale MD Primary Care Provider [phone] David Roberts APRN, STATISTICAL CLERK ADVERTISING Unavailable [phone] Annel Rod MD Unavailable Reason for Visit * Reason Comments Medication Refill Encounter Details Date Type Department Care Team (Late st Contact Info) Description 10/24/2022 Refill [facility] - [facility] [place] [address] Pili Elkins APRN, STATISTICAL CLERK ADVERTISING [address] [address] Medication Refill Social History Tobacco [...] [facility] - Endocrinology [facility] [place] [address] Annel Rod MD [address] [address] 09/24/2024 2:00 PM CDT [facility] [address] [place] [address] Angelito Alegria, BLENDER SNUFF, STATISTICAL CLERK ADVERTISING [address] [facility] [address] [place] [address] Discharge Disposition: Discharged to home or Selfcare documented as of this encounter Visit Diagnoses Diagnosis Essential hypertension Unspecified essential hypertension documented in this encounter Additional Health Concerns Infection Onset Date Last Indicated Resolved Time COVID - 19 08/01/2024 08/01/2024 08/01/2024 3:20 PM CDT Assessment Noted Time PHQ-9 Depression Total Score: 0 09/17/19 23 11:00 AM CDT documented as of this encounter Care Teams Tufting Creeler Relationship Specialty Start Date End Date Justen Gale MD [address] [address] PCP - General Family Medicine 10/17/17 David Roberts BLENDER SNUFF, STATISTICAL CLERK ADVERTISING [address] [place] [address] Nurse Practitioner Advanced Practice Nurse 01/31/22 Annel Rod MD [address] [address] Consulting Physician Endocrinology 07/01/22 documented as of this encounter
--- OUTSIDE RECORDS SUMMARY | 2024-08-13 21:54 | XMS_ITS | Clinical Summary ---
Author Organization [facility] Address [address] [place] [address] Phone Care Team Providers Care Grease Buffer Name Role Phone Justen Gale MD Primary Care Provider [phone] David Roberts APRN, AGRICULTURAL ENGINEER Unavailable [phone] Annel Rod MD Unavailable Allergies Active Allergy [...] Blood Gluc Sensor (FreeStyle Eileen 2 Sensor) [facility] APPLY 1 SENSOR AND WEAR FOR 14 DAYS TO CHECK BLOOD SUGAR 6 Each 1 08/07/19 24 Active albuterol 108 (90 Base) MCG/ACT Aerosol Solution take 2 Puffs by inhalation. 04/19/20 21 Active gabapentin (NEURONTIN) 300 MG Capsule Take 300 mg by mouth. 06/20/19 24 Active HYDROcodone-ac etaminophen (NORCO) 10-325 MG Tablet Take 1 Tablet by mouth. 12/28/19 24 Active Multiple Vitamins-Telephone Lineman als (WOMENS MULTI PO) Take by mouth. [...] Continuous Glucose Sensor (FreeStyle Eileen 2 Sensor) [facility] 1 Each by Does not apply route every 14 days. Change sensor every 14 days. E11.42, insulin dependent 6 Each 1 04/25/19 25 Active Continuous Glucose Sensor (FreeStyle Eileen 2 Sensor) [facility] 1 Each by Does not apply route every 14 days. 6 Each 1 08/03/19 25 Active HumaLOG KwikPen 100 UNIT/ML Solution Pen-injector INJECT 28 UNITS UNDER SKIN BEFORE EACH MEAL.; ISF OF 1:15 OF IF>150MG/DL; MAX DAILY DOSE OF 100 UNITS 90 mL 08/06/19 25 Active insulin glargine (Lantus SoloStar) 100 UNIT/ML Solution Pen-injector 40 Units by Subcutaneous route every morning. 30 mL 08/06/19 25 Active predniSONE (DELTASONE) 10 MG TabletIndicati ons:Polymyalgi a Rheumatica Take 1 Tablet by mouth daily. Do not stop taking until cleared by PCP office or negotiator sales. Will need to taper off slowly. Indications: Polymyalgia Rheumatica 30 Tablet 08/10/19 25 Active HYDROcodone-ac etaminophen (NORCO) 7.5-325 MG [...] Continuous Glucose Sensor (FreeStyle Eileen 2 Sensor) [facility] APPLY 1 SENSOR AND WEAR FOR 14 [...] for days 2-5. 6 Tablet 08/02/19 025 predniSONE (DELTASONE) 10 MG Tablet Take 1 Tablet by mouth daily for 7 days. 7 Tablet 08/03/19 025 Discontinu ed(Reorder ) Active Problems Problem Noted Date Diagnosed Date [...] Overview: Added automatically from request for surgery [id number] Lymphedema of left upper extremity 08/09/2016 Pulmonary embolism 08/09/2016 Overview (11/09/2017): Last Assessment & Plan: On Rivaroxaban Arthralgia of ankle 01/26/2015 Cellulitis of breast 11/11/2014 Encounters Date Type Department Care Team Description 08/13/2024 Nurse Triage [facility] [address] [place] [address] Justen Gale MD High Blood Sugar 08/07/2024 9:20 AM CDT Lab [facility] [phone] [facility]/Ancillary Body aches; Diffuse arthralgia Discharge Disposition: Discharged to home or Selfcare 08/07/2024 8:30 AM CDT Office Visit [facility] [place] [phone] Angelito Alegria APRN, NETTA Diffuse arthralgia (Primary Dx); Dyspnea on exertion; Type 2 diabetes mellitus with diabetic polyneuropathy, with long-term current use of insulin (HCC) Discharge Disposition: Discharged to home or Selfcare 08/07/2024 Results Follow-Up [facility] [address] [place] [phone] Angelito Alegria APRN, NETTA CREATINE KINASE (CK) TOTAL, ERYTHROCYTE SEDIMENTATION RATE (ESR), C-REACTIVE PROTEIN (CRP) QUANT 08/07/2024 Nurse Triage [facility] [address] [place] [phone] Justen Gale MD Breathing Problem; Muscle Pain 08/06/2024 Travel 08/05/2024 MyChart RX Renewal [facility] Endocrinology [facility] [address] [place] [phone] Annel Rod MD Medication Renewal Reviewed 08/05/2024 Nurse Triage [facility] [address] [place] [phone] Justen Gale MD Muscle Pain; Follow-up 08/03/2024 3:36 AM CDT - 08/03/2024 7:05 AM CDT Emergency [facility] Emergency [address] [place] [phone] Sergio Rivera MD Myalgia Discharge Disposition: Discharged to home or Selfcare 08/02/2024 Travel 08/02/2024 [facility] [address] [place] [phone] Justen Gale MD Hemoptysis 08/02/2024 Telephone [facility] [address] [place] [address] Justen Gale MD Results 08/02/2024 Telephone [facility] [address] [place] [address] Angelito Alegria APRN, AGRICULTURAL ENGINEER Results 08/02/2024 MyChart RX Renewal [facility] [address] [place] [address] Annel Rod MD Medication Renewal Reviewed 08/01/2024 2:13 PM CDT - 08/01/2024 4:16 PM CDT Emergency [facility] Emergency [address] [place] [phone] Jack Leiva MD Dyspnea on exertion Discharge Disposition: Discharged to home or Selfcare 08/01/2024 1:15 PM CDT Office Visit [facility] [address] [place] [address] Angelito Alegria APRN, AGRICULTURAL ENGINEER Body aches (Primary Dx) Discharge Disposition: Discharged to home or Selfcare 08/01/2024 Travel 08/01/2024 Nurse Triage [facility] [address] [place] [address] Justen Gale MD Pain 07/22/2024 Telephone [facility] [address] [place] [phone] Justen Gale MD Appointment 07/11/2024 Nurse Triage [facility] [address] [place] [address] Justen Gale MD Toe Problem 06/14/2024 [facility]riage [facility] [address] [place] [phone] Justen Gale MD Urinary Incontinence; Urinary Problem 05/28/2024 [facility] [address] [place] [phone] Justen Gale MD Nausea; Fatigue from Last 3 Months Immunizations Immunization Administration Dates Next Due Covid-19 Vaccine, Vector-nr, Rs-ad26, Pf, 0.5 Ml ([employer]) 06/29/2020 Influenza Vaccine greater than 3 yrs [...] drink = 0.6 oz pur e alcohol) [facility] Utilities Answer Date Recorded In the past 12 months has [employer], gas, oil, or water company threatened to [...] you attend chur ch or jewish services? More than 4 times per year 08/06/2024 Do you belong to any clubs o r organizations such as amish groups, unions, fraternal or athletic groups, or [...] Total Score - Questions 1-9 0 07/23 [facility] Occup[facility] ional [facility] - Occupational Stress Questionnaire Answer [...] any time in the past 12 m [facility], were you homeless or living in a fdc (including now)? No 08/06/2024 Education Answer Date [...] - Endocrinology - [facility] [address] [place] [address] Annel Rod MD [address] [phone] 09/24/2024 2:00 PM CDT Appointment [facility] [address] [place] [phone] Angelito Alegria, SKI PATROL, AGRICULTURAL ENGINEER [address] [place] [address] Discharge Disposition: Discharged to home or Selfcare Health Maintenance Due Date Last Done Comments [...] with long-term current use of insulin (HCC) CTA GENERIC 08/07/2024 12:00 AM CDT XR - CHEST 08/07/2024 12:00 AM CDT XR HIP 2 VIEWS UNILATERAL RIGHT STAT [...] CT - ABDOMEN/PELVIS 06/21/2024 1 2:00 AM GLOVE TURNER XR - LOWER EXTREMITY 06/20/2024 12:00 AM GLOVE TURNER PAIN CONSULT 05/20/2024 12:00 AM GLOVE TURNER XR - CHEST 05/15/2024 12:00 AM GLOVE TURNER HEMOGLOBIN, A1C 10/02/2023 12:00 AM CDT HUMAN PAPILLOMA VIRUS (HPV) Routine 07/05/2022 2:24 PM CDT Encounter for gynecological examination with abnormal finding Encounter for screening for human papillomavirus (HPV) PATHOLOGY CYTOLOGY DUDE RANCH MANAGER Routine 07/05/2022 2:24 PM CDT Encounter [...] 52(H) <30 mm/h 08/07/2024 12:34 PM CDT [facility] Comment: Patients presenting with increased level of fibrinogen, gamma globulins, or abnormally shaped RBCs could affect the results for the erythrocyte sedimentation rate (ESR). Results should be clinically correlated. Blood Venipuncture / Unknown 08/07/2024 8:59 AM CDT 08/07/2024 8:59 AM CDT us Angelito Alegria APRN, NETTA HEMATOLOGY ORDER CHAPARRO Final Result [facility] [place] [address] * CREATINE KINASE (CK) TOTAL (08/07/2024 8:59 AM CDT) Only the most recent of2 resultswithin the time period is included. CK (CPK) 151 29 - 168 U/L 08/07/2024 1:08 PM CDT [facility] Blood Venipuncture / Unknown 08/07/2024 8:59 AM CDT 08/07/2024 8:59 AM CDT Angelito Alegria APRN, CNP HEMATOLOGY ORDER CHAPARRO Final Result Performing Organization Address City/[facility] Co de Phone Number [facility] [address] [place] [address] * (ABNORMAL) C-REACTIVE PROTEIN (CRP) QUANT (08/07/2024 8:59 AM CDT) Only the most recent of2 resultswithin the time period is included. C-REACTIVE PROTEIN 1.21(H) <0.50 mg/dL 08/07/2024 12:54 PM CDT [facility] Blood Venipuncture / Unknown 08/07/2024 8:59 AM CDT 08/07/2024 8:59 AM CDT Angelito Alegria APRN, CNP CHEMISTRY ORDERA BLES Final Result Performing Organization Address [facility] de Phone Number [facility] [address] [place] [address] * (ABNORMAL) POCT GLUCOSE (08/07/2024 8:31 AM CDT) GLUCOSE 186(A) 70 - 99 mg/dL 08/07/2024 8:31 AM CDT Angelito Alegria APRN, CNP POINT OF CARE TE STING (MANUAL) Final Result * XR - CHEST (08/07/2024 12:00 AM CDT) Only the most recent of3 resultswithin the time period is included. 08/07/2024 us Provider Scan IMG DIAGNOSTIC ORDERABLES Final Result SCAN * CTA GENERIC (08/07/2024 12:00 AM CDT) 08/07/2024 us Provider Scan IMG CT ORDERABLES Final Result SCAN * XR HIP 2 VIEWS UNILATERAL RIGHT [...] signed by Sen DENSON: JANIYA Report ID: [id number] Reading Location: [id number] Procedure Note Dillon Sy MD - 08/03/2024 [...] Sen Sy M.D. JANIYA: JANIYA Report ID: [id number] Reading Location: [id number] IMPRESSION: Negative right hip. Sergio Rivera MD [facility] DIAGNOSTIC ORDERABLES Final Result * XR CHEST [...] signed by Patrick STOCKTON: KATH Report ID: [id number] Reading Location: [id number] Procedure Note Patrick Zhou MD - 08/03/2024 [...] signed by Patrick STOCKTON: KATH Report ID: [id number] Reading Location: [id number] IMPRESSION: Mild bilateral infiltrates are suspected superimposed on chronic lung changes. Sergio Rivera MD IM DIAGNOSTIC ORDERABLES Final Result * CBC with Auto Differential (08/02/2024 11:21 PM CDT) Only the most recent of2 resultswithin the time period is included. WBC 9.26 4.00 - 12.00 10(3)/mcL 08/03/2024 12:08 AM CDT [facility] RBC 4.62 3.80 - 5.30 10(6)/mcL 08/03/2024 12:08 AM CDT [facility] HEMOGLOBIN (HGB) 13.5 12.0 - 15.8 g/dL 08/03/2024 12:08 AM CDT [facility] HEMATOCRIT (HCT) 42.9 36.0 - 47.0 % 08/03/2024 12:08 AM CDT [facility] MCV 92.9 82.0 - 96.0 fL 08/03/2024 12:08 AM CDT [facility] MCH 29.2 26.0 - 34.0 pg 08/03/2024 12:08 AM CDT [facility] MCHC 31.5 31.0 - 36.0 g/dL 08/03/2024 12:08 AM CDT [facility] PLATELET COUNT 272 140 - 440 10(3)/mcL 08/03/2024 12:08 AM CDT [facility] RDW 12.8 11.8 - 15.5 % 08/03/2024 12:08 AM CDT [facility] MPV 10.2 9.7 - 12.4 fL 08/03/2024 12:08 AM CDT [facility] NEUTROPHILS 62.5 47.0 - 73.0 % 08/03/2024 12:08 AM CDT [facility] LYMPHOCYTES 27.1 18.0 - 42.0 % 08/03/2024 12:08 AM CDT [facility] MONOCYTES 7.1 4.0 - 12.0 % 08/03/2024 12:08 AM CDT [facility] EOSINOPHILS 3.0 0.0 - 5.0 % 08/03/2024 12:08 AM CDT [facility] BASOPHILS 0.3 0.0 - 1.0 % 08/03/2024 12:08 AM CDT [facility] ABSOLUTE NEUTROPHILS 5.78 1.60 - 7.70 10(3)/[facility] 08/03/2024 12:08 AM CDT [facility] ABSOLUTE LYMPHOCYTES 2.51 1.30 - 3.20 10(3)/[facility] 08/03/2024 12:08 AM CDT [facility] ABSOLUTE MONOCYTES 0.66 0.20 - 1.00 10(3)/[facility] 08/03/2024 12:08 AM CDT [facility] ABSOLUTE EOSINOPHIL 0.28 0.00 - 0.40 10(3)/[facility] 08/03/2024 12:08 AM CDT [facility] ABSOLUTE BASOPHILS 0.03 0.00 - 0.10 10(3)/[facility] 08/03/2024 12:08 AM CDT [facility] NRBC PER 100 WBC 0 08/04/19 25 12:08 AM CDT [facility] Blood Venipuncture / Unknown 08/02/2024 11:21 PM CDT 08/03/2024 12:05 AM CDT us Sergio Rivera MD HEMATOLOGY ORDERABLES Final Resu lt [facility] [address] [place] [address] * (ABNORMAL) CMP (Comprehensive Metabolic Panel) (08/02/2024 11:21 PM CDT) Only the most recent of2 resultswithin the time period is included. SODIUM 138 136 - 145 mmol/L 08/03/2024 12:29 AM CDT [facility] POTASSIUM 4.4 3.5 - 5.1 mmol/L 08/03/2024 12:29 AM T [facility] CHLORIDE 104 98 - 107 mmol/L 08/03/2024 12:29 AM [facility] CO2, VENOUS 26 22 - 30 mmol/L 08/03/2024 12:29 AM T [facility] ANION GAP 12.4 <18.0 mmol/L 08/03/2024 12:29 AM T [facility] GLUCOSE 353(H) 70 - 99 mg/dL 08/03/2024 12:29 AM T [facility] BUN 18 10 - 20 mg/dL 08/03/2024 12:29 AM [facility] CREATININE, BLOOD 0.80 0.60 - 1.00 mg/dL 08/03/2024 12:29 AM [facility] BUN/CREATININE RATIO 23(H) 12 - 20 ratio 08/03/2024 12:29 AM T [facility] TOTAL PROTEIN 8.4(H) 6.0 - 8.0 g/dL 08/03/2024 12:29 AM [facility] ALBUMIN 3.8 3.5 - 5.0 g/dL 08/03/2024 12:29 AM [facility] A/G RATIO 0.8(L) 1.0 - 2.2 08/03/2024 12:29 AM T [facility] CALCIUM 10.0 8.7 - 10.5 mg/dL 08/03/2024 12:29 AM T [facility] T BILI 0.4 0.2 - 1.2 mg/dL 08/03/2024 12:29 AM T [facility] SGOT (AST) 23 <43 U/L 08/03/2024 12:29 AM T [facility] SGPT (ALT) 22 <56 U/L 08/03/2024 12:29 AM T [facility] ALKALINE PHOSPHATASE 67 40 - 150 U/L 08/03/2024 12:29 AM CDT [facility] GFR, ESTIMATED >60 >=60 08/03/2024 12:29 AM CDT [facility] Comment: Creatinine Clearance is the preferred criteria for selecting drug dose adjustments in renally impaired patients. The GFR is provided as additional pertinent clinical information. GFR is reported in mL/min/1.73 sq m. Calculation based on the Chronic Kidney Disease Epidemiology Collaboration (CKD- EPI) equation refit without adjustment for race. GFR, EST. >60 >=60 025 12:29 AM CDT [facility] GFR, EST. NONAFRICAN >60 >=60 08/03/2024 12:29 AM CDT [facility] Blood Venipuncture / Unknown 08/02/2024 11:21 PM CDT 08/03/2024 12:05 AM CDT us Sergio Rivera MD CHEMISTRY ORDERABLES Final Resul t [facility] [place] [address] * TROPONIN I, HIGH SENSITIVITY (HSTRP) (08/01/2024 2:48 PM CDT) Pathologist [facility] TROPONIN I, HIGH SENSITIVITY- [facility] 4 <=14 ng/L 08/01/2024 3:45 PM CDT [facility] Comment: High-sensitivity troponin I results are reported in ng/L making the result appear to be 1,000 times higher than the contemporary troponin I value which is reported in ng/ml. Results from [facility]. Blood Venipuncture / Unknown 08/01/2024 2:48 PM CDT 08/01/2024 3:08 PM CDT us Jack Leiva MD CHEMISTRY ORDERABLES Deann l Result [facility] [place] [address] * Gold Top Tube (08/01/2024 2:48 PM CDT) Blood No Phlebotomy Charged / Unknown 08/01/2024 2:48 PM CDT 08/01/2024 3:12 PM CDT Jack Leiva MD CHEMISTRY ORDERABLES Deann l Result Performing Organization Address City/[facility] Co de Phone Number [facility] [place] [address] * Blue Top Tube (08/01/2024 2:48 PM CDT) Blood No Phlebotomy Charged / Unknown 08/01/2024 2:48 PM CDT 08/01/2024 3:12 PM CDT Jack Leiva MD HEMATOLOGY ORDERABLES Fin al Result Performing Organization Address [facility] Co de Phone Number [facility] [place] [address] * Magnesium (08/01/2024 2:48 PM CDT) Pathologist [facility] MAGNESIUM 1.6 1.6 - 2.6 mg/dL 08/01/2024 3:39 PM CDT [facility] Blood Venipuncture / Unknown 08/01/2024 2:48 PM CDT 08/01/2024 3:08 PM CDT Jack Leiva MD CHEMISTRY ORDERABLES Deann l Result Performing Organization Address City/[facility] Co de Phone Number [facility] [place] [address] * B-Type Natriuretic Peptide (BNP) (08/01/2024 2:48 PM CDT) B TYPE NATRIURETIC PEPTIDE 23 <100 pg/mL 08/01/2024 3:37 PM CDT [facility] Blood Venipuncture / Unknown 08/01/2024 2:48 PM CDT 08/01/2024 3:08 PM CDT us Jack Leiva MD CHEMISTRY ORDERABLES Deann l Result Performing Organization Address [facility] Co de Phone Number [facility] [place] [address] * EKG 12 LEAD (08/01/2024 2:41 PM CDT) Ventricular Rate 75 BPM EXTERNAL EKG Atrial Rate 75 BPM EXTERNAL EKG P-R Interval 134 ms EXTERNAL EKG QRS Duration 82 ms EXTERNAL EKG Q-T Duration 380 ms EXTERNAL EKG QTC CALCULATION 424 ms EXTERNAL EKG P Lanagan -77 degrees EXTERNAL EKG R Lanagan 28 degrees EXTERNAL EKG T Lanagan 53 degrees EXTERNAL EKG 08/01/2024 2:41 PM CDT Impressions EXTERNAL EKG - 08/04/2024 12:00 PM CDT Atrial-sensed ventricular-paced rhythm Abnormal ECG No previous ECGs available Confirmed by Maryann Clay ([id number]) on 08/04/2024 11:59:59 AM Narrative Procedure Note Maryann Clay MD - 08/04/2024 IMPRESSION: Atrial-sensed ventricular-paced rhythm Abnormal ECG No previous ECGs available Confirmed by Maryann Clay ([id number]) on 08/04/2024 11:59:59 AM us Jack Leiva MD IMG ECG ORDERABLES Final Result Performing Organization Address City/[facility]/ZIP Co de Phone Number EXTERNAL EKG * XR [...] Romelia Bowen D.O. PS: PS Report ID: [id number] Reading Location: [place] [address] Procedure Note Romelia Bowen DO - 08/01/2024 [...] Romelia Bowen D.O. PS: PS Report ID: [id number] Reading Location: [id number] IMPRESSION: Patchy left basilar airspace opacities, which may be related to subsegmental atelectasis/scarring versus developing airspace disease. Jack Leiva MD IMG DIAGNOSTIC ORDERABLES Final Result * RSV,SARS-COV-2,INFLUENZA A&B BY PCR (08/01/2024 2:28 PM CDT) FLU A Negative Negative, Error 08/01/2024 3:20 PM CDT [facility] FLU B Negative Negative 08/01/2024 3:20 PM CDT [facility] RESP SYNC VIRUS Negative Negative 3:20 PM CDT [facility] SARSCOV2 NOT DETECTED (Reference Range for this test is Not Detected) 08/01/2024 3:20 PM CDT [facility] Comment:This test was perfor med by a Reverse Clinical Appeals Specialist PCR Method. Swab NASOPHARYNGEAL STRUCTURE / Unknown Non-Phlebotomy Collection / Unknown 08/01/2024 2:28 PM CDT 08/01/2024 2:33 PM CDT us Jack Leiva MD MICROBIOLOGY - GENERAL OR DERABLES Final Result Performing Organization Address [facility] Co de Phone Number [facility] [place] [address] * EKG SCAN (08/01/2024 12:00 AM CDT) 08/01/2024 us Provider Scan IMG ECG ORDERABLES Final Result Performing Organization Address City/[facility] Co de Phone Number RESULTING AGENCY * PAIN CONSULT (07/24/2024 12:00 AM CDT) Only the most recent of2 resultswithin the time period is included. 07/24/2024 us Justen Gale MD GENERIC SCAN ORDERS CONSULT F inal Result Performing Organization Address City/[facility]/ZIP Co de Phone Number SCAN * CT - CHEST (07/22/2024 12:00 AM CDT) 07/22/2024 us Provider Scan IMG CT ORDERABLES Final Result SCAN * XR - LOWER EXTREMITY (07/10/2024 12:00 AM CDT) Only the most recent of2 resultswithin the time period is included. 07/10/2024 us Provider Scan IMG DIAGNOSTIC ORDERABLES Final Result Performing Organization Address City/[facility]/ZIP Co de Phone Number SCAN * CT - ABDOMEN/PELVIS (06/21/2024 12:00 AM GLOVE TURNER) 06/21/2024 us Provider Scan IMG CT ORDERABLES Final Result Performing Organization Address [facility] de Phone Number SCAN * HEMOGLOBIN, A1C (10/02/2023 12:00 AM CDT) HGB-A1C 7.8 SCAN 10/02/2023 us Provider Scan CHEMISTRY ORDERABLES Final Resul t Performing Organization Address [facility] de Phone Number SCAN * PATHOLOGY CYTOLOGY DUDE RANCH MANAGER (07/05/2022 2:24 PM CDT) SPECIMEN ADEQUACY A scant cellular component is noted. Scant cellularity is likely due to presence of lubricant. 07/08/2022 8:[address] [facility] DESCRIPTIVE DIAGNOSIS NEGATIVE FOR INTRAEPITHELIAL LESIONS OR MALIGNANCY. 07/08/2022 8:[address] [facility] at 0838 CDT OTHER FINDINGS Atrophic hormonal pattern. 07/08/2022 8:[address] [facility] Automated Examination This sample was not evaluated by the automated imaging and review system ([employer], [employer], [place], [place] due to technical and / or biologic factor(s). The case was screened, reviewed, and finalized by a arc welding machine operator and / or pathologist. 07/08/2022 8:[address] [facility] Disclaimer The PAP smear is a screening [...] clinically indicated. 07/08/2022 8:[address] [facility] Other CERVIX UTERI STRUCTURE / Unknown Non-Phlebotomy Collection / Unknown 07/05/2022 2:24 PM CDT 07/05/2022 2:24 PM CDT us Pili Elkins APRN, NETTA PATHOLOGY/CYTOLOGY O RDERABLES Final Result [facility] [address] [place] [address], * HUMAN PAPILLOMA VIRUS (HPV) (07/05/2022 2:24 PM CDT) HPV OTHER HIGH RISK TYPES, PCR NEGATIVE NEGATIVE 07/06/2022 2:[address] [facility] Comment: The following Other High Risk types [...] NEGATIVE NEGATIVE 07/06/2022 2:[address] [facility] Comment: A negative high-risk HPV result does [...] NEGATIVE NEGATIVE 07/06/2022 2:[address] [facility] Comment: A negative high-risk HPV result does [...] DIAGNOSTIC SCREENING 07/06/2022 2:37 PM CDT [facility] Other Non-Phlebotomy Collection / Unknown 07/05/2022 2:24 PM CDT 07/05/2022 2:[address] [facility] - 07/06/2022 2:37 PM CDT Performed by Real-Time Polymerase Chain Reaction (PCR) on the Ronnie Vinay 4800. This assay has been validated for use with post-aliquot samples from the [employer] T5000 processor. Pili Elkins APRN, AGRICULTURAL ENGINEER LAB SEND OUTS Deann l Result [facility] [address] [place] [address], [facility] [place] [address] * HM COLONOSCOPY (01/09/2020) us Genaro Jensen DO PROCEDURE/MINOR SURGICAL ORDERA BLES Final Result * AMB REFERRAL TO PODIATRY (08/13/2019) Alvarez Mensah MD OUTPATIENT REFERRALS Final Res ult * POCT STOOL, OCCULT BLOOD, DIAGNOSTIC (09/07/2018 1:20 PM CDT) OCCULT BLOOD, STOOL Negative Negative, Other POC HEMOCULT CONTROL Breaker Tender Pass 09/07/2018 1:20 PM CDT Pili Elkins SKI PATROL, AGRICULTURAL ENGINEER POINT OF CARE TESTIN G (MANUAL) Final Result from Last 3 Months or Most Recently Relevant to Health Maintenance Insurance [facility] Care Teams Grease Buffer Relationship Specialty Start Date End Date Jsuten Gale MD #[address] [address] PCP - General Family Medicine 10/17/17 David Roberts APRN, AGRICULTURAL ENGINEER #[address] [place] [address] Nurse Practitioner Advanced Practice Nurse 01/31/22 Annel Rod MD #[address] [id number] Consulting Physician Endocrinology 07/01/22
--- OUTSIDE RECORDS SUMMARY | 2024-08-13 21:54 | XMS_ITS | Encounter Summary ---
Author Organization [facility] Address [address] [place] [id number] Care Team Providers Care Typists Supervisor Name Role Phone Meena Bansal MD Unavailable Justen Gale MD Primary Care Provider [phone] Encounter Details Date Type Department Care Team (Latest Contact Info) Description 08/12/2024 Travel Social History Tobacco Use Types Packs/Day Years Used Date Smoking Tobacco: Former Cigarettes 0.3 2 1 05/23/1974 - 03/23/1977 Smokeless Tobacco: Never Alcohol Use Standard Drinks/Week Comments No 0 (1 standard drink = 0.6 oz pur e alcohol) [facility] Utilities Answer Date Recorded In the past 12 months has e [employer], gas, oil, or water [employer] threatened to shut off services in your [...] any time in the past 12 m [facility], were you homeless or living in a alf (including now)? 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 Answer Date of Assessment Author Status No 10/13/2023 9:26 PM BRENDANT Dashawn Naranjo RN Active * Do you have serious difficulty walking or climbing stairs? Answer Date of Assessment Author Status Yes 10/13/2023 9:26 PM BRENDANT Dashawn Naranjo RN Active * Do you have difficulty dressing or bathing? Answer Date of Assessment Author Status Yes 10/13/2023 9:26 PM CDT Dashawn Naranjo RN Active * Because of a physical, mental, or emotional condition, do you have difficulty doing errands alone such as visiting a doctor's office or shopping? Answer Date of Assessment Author Status No 10/13/2023 9:26 PM BRENDANT Dashawn Naranjo RN Active * Calculated C-SSRS Risk Score (Lifetime/Recent) Answer Date of Assessment Author Status No Risk Indicated 08/12/2024 4:24 PM CDT Sumaya Betts RN Active * [place] Suicide Severity Rating Scale (Screener/Recent Self-Report) Question Answer Date of Assessment Author Status 1. Wish to be (Past 1 Month) No 08/12/2024 4:24 PM BRENDANT Sumaya Betts RN Active 2. Non-Specific Active Suicidal Thoughts (Past 1 Month) No 08/12/2024 4:24 PM BRENDANT Sumaya Betts RN Active 6. Suicidal Behavior (Lifetime) No 08/12/2024 4:24 PM BRENDANT Sumaya Betts RN Active documented as of this encounter Mental Status * Because of a physical, mental, or emotional condition, do you have serious difficulty concentrating, remembering, or making decisions? Answer Entry Date Author Status No 10/13/2023 9:26 PM BRENDANT Dashawn Naranjo RN Active documented in this encounter Plan of Treatment Not on file documented as of this encounter Visit Diagnoses Not on filedocumented in this encounter Care Teams Typists Supervisor Relationship Specialty Start Date End Date Justen [facility] [address] [place] [address] PCP - General FAMILY PRACTICE 08/20/17 [facility] [address] [place] [address] [place] [facility]er CARDIOVASCULAR DISEASE 04/24/16 documented as of this encounter
--- OUTSIDE RECORDS SUMMARY | 2024-08-13 21:54 | XMS_ITS | Encounter Summary ---
Author Organization [facility] Address [address] [place] [id number] Care Team Providers Care Piecer Name Role Phone Meena Bansal MD Unavailable [phone] Justen Gale MD Primary Care Provider [phone] Reason for Visit * Reason Comments Urinary Symptoms Encounter Details Date Type Department Care Team (Late st Contact Info) Description 08/12/2024 4:41 PM CDT - 08/12/2024 7:[address] [facility] Emergency Room [place], [place] [id number] Marvin Brewer MD [address] [place] [id number] Urinary Symptoms Discharge Disposition: Home or Self [...] in the past 12 m [facility], were you homeless or living in a retirement (including now)? 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 Answer Date of Assessment Author Status No 10/13/2023 9:26 PM CDT Dashawn Naranjo RN Active * Do you have serious difficulty walking or climbing stairs? Answer Date of Assessment Author Status Yes 10/13/2023 9:26 PM CDT Dashawn Naranjo RN Active * Do you [...] PM CDT Dashawn Naranjo RN Active * Calculated C-SSRS Risk Score (Lifetime/Recent) Answer Date of Assessment Author Status No Risk Indicated 08/12/2024 4:24 PM CDT Sumaya Betts RN Active * [place] Suicide Severity Rating Scale (Screener/Recent Self-Report) Question Answer Date of Assessment Author Status 1. Wish to be (Past 1 Month) No 08/12/2024 4:24 PM CDT Sumaya Betts RN Active 2. Non-Specific Active Suicidal Thoughts (Past 1 Month) No 08/12/2024 4:24 PM CDT Sumaya Betts RN Active 6. Suicidal Behavior (Lifetime) No 08/12/2024 4:24 PM CDT Sumaya Betts RN Active documented as of this encounter Mental Status * Because of a physical, mental, or emotional condition, do you have serious difficulty concentrating, remembering, or making decisions? Answer Entry Date Author Status No 10/13/2023 9:26 PM CDT Dashawn Naranjo RN Active documented in this encounter Discharge Instructions * Discharge Instructions* Marvin Brewer MD - 08/12/2024 6:36 PM CDT You do not have a urinary tract infection. Your labs today were normal. Thank you for entrusting your health with us today. We have obtained information about your health and reviewed your work-up. Please access [facility] to see your work-up and my note. There were no findings on the tests today which would require you to stay in the hospital at this time. Medical care is complex and your health is important so I encourage you to follow up with your primary care provider or physician. Please return to the ED if your symptoms worsen or you have other concerning symptoms. * Attachments The following attachments cannot be sent through Care Everywhere. * Fatigue Discharge Instructions (Nigerien) documented in this encounter Medications at Time of Discharge amoxicillin (AMOXIL) 500 MG capsule Take 1 capsule (500 mg total) by mouth 3 (three) times daily for 5 days. 15 capsule 5 08/18/19 25 albuterol sulfate HFA 108 (90 Base) MCG/ACT [...] mg total) by mouth every evening. 1 documented as of this encounter ED Notes * Wendi Obrien RN - 08/12/2024 7:45 PM CDT Pt reports is in route to ED to pick pt up. Pt initially requesting to speak with CSN but CSN currently busy. Pt notified, reports she will call tomorrow to speak with management regarding care. Pt agreeable to discharge, ambulatory with personal cane to waiting room to wait for ride. * Abiola Jimenez RN - 08/12/2024 7:27 PM CDT Pt agreeable to DC and verbalized understanding of DC instructions, but requests to speak with chargeback analyst prior to DC re: provider care. * Marvin Brewer MD - 08/12/2024 5:23 PM CDT Chief Complaint Chief Complaint Patient presents with Urinary Symptoms History of Present Illness 61-year-old female here due to generalized weakness and fatigue. Seen 3 days ago at outside hospital and diagnosed with strep, put on clindamycin as she has multiple antibiotic allergies listed. Has been having urinary symptoms. Denies pain anywhere at this time. History provided by: Patient Urinary Symptoms Medical History ALLERGIES: Allergies Allergen Reactions Ativan [Lorazepam] Hyperactive Aggrevates [...] Shortness of breath. 04/19/21 Jaswinder Gaytan MD exemestane 25 MG tablet Take 1 tablet by mouth daily with supper. Give with food 08/09/17 [facility] gabapentin (NEURONTIN) 300 MG capsule Take 1 capsule (300 mg total) by mouth 3 (three) times daily.06/20/23 Default History Genericprovider HYDROcodone-acetaminophen (NORCO) 10-325 MG tablet Take 1 tablet by mouth every 6 (six) hours as needed. 06/27/20 [facility] insulin glargine (LANTUS SOLOSTAR) 100 UNIT/ML injection (PEN) Inject 32 Units into the skin every morning. [facility] insulin lispro 100 UNIT/ML injection (VIAL) Inject 28 Units into the skin see administration instructions. 28 units before breakfast. 28 units before lunch. 28 units before dinner. Patient also uses sliding scale: BS>140, add 1 unit for every 15 mg/dl >140 methenamine (HIPREX) 1 g tablet Take 1 tablet (1 g total) by mouth 2 (two) times daily. 07/12/23 Default History Genericprovider naloxone 4 MG/0.1ML nasal spray 1 spray by Nasal route as needed for Opioid reversal. 05/13/21 [facility] ondansetron 4 MG disintegrating tablet Take 1 tablet (4 mg total) by mouth every 8 (eight) hours asneeded for Nausea. 07/19/21 Bonnie Martinez APRN oxybutynin XL (DITROPAN XL) 15 MG 24 hr tablet Take 1 tablet (15 mg total) by mouth daily. 09/25/23 Default History Genericprovider PULSE OXIMETER, DME, Please use the pulse oximeter when you are short of breath. If your reading isless than 85% after exerting yourself, or less than 90% at rest, please return to the emergency department. If you feel you are in immediate danger, please call 911. 04/19/21 Jaswinder Gaytan MD ROPINIROLE HYDROCHLORIDE 5 MG Tab Take 1 tablet (5 mg total) by mouth nightly at bedtime. 07/14/17 [facility] XARELTO 20 MG Tab tablet Take 1 tablet (20 mg total) by mouth every evening. 07/17/20 [facility] PAST MEDICAL HISTORY: Past Medical History[1] PAST SURGICAL HISTORY: Past Surgical History[2] FAMILY HISTORY: Family History[3] SOCIAL HISTORY: Social History[4] Review of Systems Review of Systems All other systems reviewed and are negative. Physical Exam Filed Vitals: 08/12/24 1617 08/12/24 1628 08/12/24 1721 08/12/24 1722 BP: (!) 155/78 (!) 145/69 (!) 145/90 (!) 146/88 Pulse: 86 82 89 89 Resp: 16 Temp: 97.5 ??F (36.4 ??C) SpO2: 98% Weight: 122.5 kg (270 lb) Height: 1.549 m (5' 1 ) Physical Exam Vitals and nursing note reviewed. Constitutional: General: She is not in acute distress. Appearance: Normal appearance. She is not ill-appearing, toxic-appearing or diaphoretic. HENT: Head: Normocephalic and atraumatic. Nose: Nose normal. Mouth/Throat: Mouth: Mucous membranes are moist. Pharynx: Oropharynx is clear. Eyes: Conjunctiva/sclera: Conjunctivae normal. Cardiovascular: Rate and Rhythm: Normal rate and regular rhythm. Pulses: Normal pulses. Heart sounds: Normal heart sounds. Pulmonary: Effort: Pulmonary effort is normal. Breath sounds: Normal breath sounds. Abdominal: Palpations: Abdomen is soft. Tenderness: There is no abdominal tenderness. Musculoskeletal: General: Normal range of motion. Right lower leg: No edema. Left lower leg: No edema. Skin: General: Skin is warm and dry. Capillary Refill: Capillary refill takes less than 2 seconds. Neurological: General: No focal deficit present. Mental Status: She is alert and oriented to person, place, and time. Diagnostic Studies / Procedures ELECTROCARDIOGRAMS: Results for orders placed or performed during the hospital encounter of 08/12/24 ECG 12 lead Narrative [facility] Test Date: 2024-08-12 Pat Name: MOHSEN MARQUES Department: 41 Room: [place] [address] Gender: Female Technical Implementation Lead: [id number] : 1955 Requested By: MARVIN BREWER Order Number: [id number] Reading MD: Measurements Intervals Zephyr Rate: 82 P: -76 CT: 99 QRS: 30 QRSD: 86 T: 65 QT: 403 QTc: 472 Interpretive Statements JUNCTIONAL RHYTHM ABNORMAL RHYTHM ECG Compared to ECG 10/13/2023 01:02:35 Junctional rhythm now present Sinus rhythm no longer present Incomplete right bundle-branch block no longer present Myocardial infarct finding no longer present LABORATORY STUDIES: Results for orders placed or performed during the hospital encounter of 08/12/24 CBC W/DIFF AUTOMATED Result Value Ref Range WBC 12.17 (H) 4.5 - 11.0 x10'3/uL RBC 4.58 4.20 - 5.40 x10'6/uL HGB 13.3 12.0 - 16.0 G/DL HCT 42.6 38.0 - 48.0 % MCV 93.0 81.0 - 99.0 FL MCH 29.0 27.0 - 31.0 PG MCHC 31.2 (L) 32.0 - 36.0 G/DL RDW 13.3 11.5 - 14.5 % PLT 290 130 - 400 x10'3/uL MPV 9.8 9.3 - 12.2 FL DIFFERENTIAL TYPE AUTOMATED DIFFERENTIAL NEUTROPHILS % 67.7 % LYMPHOCYTES % 21.2 % MONOCYTES % 8.0 % EOSINOPHILS 2.3 % BASOPHILS 0.3 % IMMATURE GRANS % 0.5 % ABS. NEUTROPHILS 8.24 (H) 1.80 - 7.70 x10'3/uL ABS. LYMPHOCYTES 2.58 1.00 - 4.80 x10'3/uL ABS. MONOCYTES 0.97 (H) 0.24 - 0.86 x10'3/uL ABS. EOSINOPHILS 0.28 0.04 - 0.36 x10'3/uL ABS. BASOPHILS 0.04 0.01 - 0.08 x10'3/uL ABS. IMMATURE GRANULOCYTES 0.06 0.00 - 0.49 x10'3/uL URINALYSIS Result Value Ref Range SPECIMEN TYPE URINE CLEAN CATCH COLOR (U) LIGHT YELLOW TRANSPARENCY CLEAR SPECIFIC GRAVITY (U) 1.016 1.001 - 1.030 U PH 6.0 5.0 - 9.0 LEUKOCYTES (U) NEGATIVE NEGATIVE NITRITES NEGATIVE NEGATIVE PROTEIN RANDOM (U) NEGATIVE <30 MG/DL GLUCOSE (U) 1000 (A) NORMAL MG/DL KETONES MG/DL (U) NEGATIVE NEGATIVE MG/DL UROBILINOGEN NORMAL NORMAL MG/DL BILIRUBIN (U) NEGATIVE NEGATIVE MG/DL BLOOD (U) NEGATIVE NEGATIVE IMAGING STUDIES No orders to display ED Course / Medical Decision Making Medical Decision Making Problems Addressed: Dysuria: acute illness or injury Generalized weakness: acute illness or injury Amount and/or Complexity of Data Reviewed Labs: ordered. Decision-making details documented in ED Course. ECG/medicine tests: ordered and independent interpretation performed. Decision- making details documented in ED Course. ED Course as of 08/12/241908Aug 12, 2024 172 URINALYSIS(!) No UTI [] 1727 ECG 12 lead Normal sinus rhythm, no ST elevation or depressions, no T wave inversions, intervals normal [JH] 1751 COMPREHENSIVE METABOLIC PANEL(!) No significant abnormalities [JH] ED Course User Index [JH] Marvin Brewer MD Clinical Impression None Disposition: Data Unavailable [1] Past Medical History: Diagnosis Date Arthritis Back pain Blood clot in vein Breast cancer ([facility]/HCC) Cancer ([facility]) Diabetes mellitus ([facility]) Disease of thyroid gland DVT (deep venous thrombosis) ([facility] H[facility]/HCC) Hypertension Kidney stones Neuropathy PE (pulmonary thromboembolism) ([facility]) Restless leg syndrome Spinal headache Has Bulging disc in lower back and Neck [2] Past Surgical History: Procedure Laterality Date SECTION CHOLECYSTECTOMY COLONOSCOPY/EGD 09/10/2018 dr mcmullen - normal EGD - moderate diverticulosis - mild hemorrhoid HERNIA REPAIR MASTECTOMY TOTAL KNEE ARTHROPLASTY [3] Family History Problem Relation Name Age of Onset Aneurysm Mother Diabetes Mother Heart Disease Mother Hyperlipidemia Mother Hypertension Mother Stroke Mother Cancer Father Cancer Sister COPD Sister Depression Sister Cancer Brother [4] Social History Tobacco Use Smoking status: Former Current packs/day: 0.00 Average packs/day: 0.3 packs/day for 2.0 years (0.5 ttl pk-yrs) Types: Cigarettes Start date: 03/23/1975 Quit date: 03/23/1977 Years since quittin.4 Smokeless tobacco: Never Substance Use Topics Alcohol use: No Drug use: No Marvin Brewer MD 08/12/241914 * Sumaya Betts RN - 08/12/2024 4:22 PM CDT Pt to ED for concerns of UTI. Pt currently being treated for strep. Pt has frequency and pressure with urination. Pt states she does not feel like she is getting better. She is weak. Pt newly diagnosed with polymyositis. documented in this encounter Plan of Treatment Not on file documented as of this encounter Procedures Procedure Name Priority Date/Time Associated Diagnosis Comments ECG 12-LEAD STAT 08/12/2024 5:13 PM CDT COMPREHENSIVE METABOLIC PANEL STAT 08/12/2024 4:49 PM CDT CBC W/DIFF AUTOMATED STAT 08/12/2024 4:49 PM CDT HC URINALYSIS AUTO W/O MICRO STAT 08/12/2024 4:48 PM CDT documented in this encounter Results * ECG 12 lead (08/12/2024 5:13 PM CDT) 08/12/2024 5:13 PM CDT Narrative [facility] - 08/12/2024 10:49 PM CDT [facility] [address] [facility] Test Date: 2024-08-12 Pat Name: MOHSEN MARQUES Department: 41 Room: EXAM25 Gender: Female Technical Implementation Lead: [id number] : 1955 Requested By: MARVIN BREWER Order Number: [id number] Reading MD: Meena Bansal Measurements Intervals Zephyr Rate: 82 P: -76 CT: 99 QRS: 30 QRSD: 86 T: 65 QT: 403 QTc: 472 Interpretive Statements JUNCTIONAL RHYTHM ABNORMAL RHYTHM ECG Compared to ECG 10/13/2023 01:02:35 Junctional rhythm now present Sinus rhythm no longer present Incomplete right bundle-branch block no longer present Myocardial infarct finding no longer present Procedure Note Meena Bansal MD - 08/12/2024 [facility] [address] [facility] Test Date: 2024-08-12 Pat Name: MOHSEN MARQUES Department: 41 Room: EXAM25 Gender: Female Technical Implementation Lead: [id number] : 1955 Requested By: MARVIN BREWER Order Number: [id number] Reading : Meena Bansal Measurements Intervals Zephyr Rate: 82 P: -76 CT: 99 QRS: 30 QRSD: 86 T: 65 QT: 403 QTc: 472 Interpretive Statements JUNCTIONAL RHYTHM ABNORMAL RHYTHM ECG Compared to ECG 10/13/2023 01:02:35 Junctional rhythm now present Sinus rhythm no longer present Incomplete right bundle-branch block no longer present Myocardial infarct finding no longer present Marvin Brewer MD ECG ORDERABLES Final Result [facility] * (ABNORMAL) COMPREHENSIVE METABOLIC PANEL (08/12/2024 4:49 PM CDT) GLUCOSE 293(H) 70 - 99 MG/DL 08/12/2024 5:33 PM CDT [facility] BUN 17 7 - 18 MG/DL 08/12/2024 5:33 PM CDT [facility] CREATININE S/P/B 0.84 0.55 - 1.02 MG/DL 08/12/2024 5:33 PM CDT [facility] SODIUM S/P/B 137 136 - 145 MMOL/L 08/12/2024 5:33 PM CDT [facility] POTASSIUM S/P/B 4.0 3.5 - 5.1 MMOL/L 08/12/2024 5:33 PM CDT [facility] CHLORIDE S/P/B 103 97 - 115 MMOL/L 08/12/2024 5:33 PM CDT [facility] CO2 27.7 21 - 32 MMOL/L 08/12/2024 5:33 PM CDT [facility] CALCIUM S/P/B 9.2 8.5 - 10.1 MG/DL 08/12/2024 5:33 PM CDT [facility] BILIRUBIN TOTAL S/P/B 0.4 0.2 - 1.2 MG/DL 08/12/2024 5:33 PM CDT [facility] Comment: THIS ASSAY IS NOT RECOMMENDED FOR PATIENTS UNDERGOING TREATMENT WITH ELTROMBOPAG DUE TO THE POTENTIAL FOR FALSELY ELEVATED RESULTS. TOTAL PROTEIN S/P/B 8.1 6.4 - 8.2 G/DL 08/12/2024 5:33 PM CDT [facility] ALBUMIN S/P/B 3.2(L) 3.4 - 5.0 G/DL 08/12/2024 5:33 PM CDT [facility] AST 20 15 - 37 U/L 08/12/2024 5:33 PM CDT [facility] ALT 29 14 - 55 U/L 08/12/2024 5:33 PM CDT [facility] ALKALINE PHOSPHATASE S/P/B 83 50 - 136 U/L 08/12/2024 5:33 PM CDT [facility] ANION GAP 6.3 2 - 10 MMOL/L 08/12/2024 5:33 PM CDT [facility] BUN CREATININE RATIO 20.3 6 - 26 08/12/2024 5:33 PM CDT [facility] A/G RATIO 0.7(L) 1.0 - 2.0 RATIO 08/12/2024 5:33 PM CDT [facility] GFR ESTIMATE 76(L) >90 ML/MIN/1.7 3 M2 08/12/2024 5:33 PM CDT [facility] Comment: NOTE: eGFR is not calculated for patients <18 years of age or gender unknown. This is an estimated GFR calculation using the new CKD EPI creatinine equation without race and so does not require a correction factor for race. This estimated GFR should not be used for calculating drug doses. 08/12/2024 4:49 PM CDT [facility] Final Result [facility] [address] [place] [address], [place] [phone] * (ABNORMAL) CBC W/DIFF AUTOMATED (08/12/2024 4:49 PM CDT) [facility] WBC 12.17(H) 4.5 - 11.0 x10'3/uL 08/12/2024 5:00 PM CDT [facility] RBC 4.58 4.20 - 5.40 x10'6/uL 08/12/2024 5:00 PM CDT [facility] HGB 13.3 12.0 - 16.0 G/DL 08/12/2024 5:00 PM CDT [facility] HCT 42.6 38.0 - 48.0 % 08/12/2024 5:00 PM CDT [facility] MCV 93.0 81.0 - 99.0 FL 08/12/2024 5:00 PM CDT [facility] MCH 29.0 27.0 - 31.0 PG 08/12/2024 5:00 PM CDT [facility] MCHC 31.2(L) 32.0 - 36.0 G/DL 08/12/2024 5:00 PM CDT [facility] RDW 13.3 11.5 - 14.5 % 08/12/2024 5:00 PM CDT [facility] PLT 290 130 - 400 x10'3/uL 08/12/2024 5:00 PM CDT [facility] MPV 9.8 9.3 - 12.2 FL 08/12/2024 5:00 PM CDT [facility] DIFFERENTIAL TYPE AUTOMATED DIFFERENTIAL 08/12/2024 5:00 PM CDT [facility] NEUTROPHILS % 67.7 % 08/12/2024 5:00 PM CDT [facility] LYMPHOCYTES % 21.2 % 08/12/2024 5:00 PM CDT [facility] MONOCYTES % 8.0 % 08/12/2024 5:00 PM CDT [facility] EOSINOPHILS 2.3 % 08/12/2024 5:00 PM CDT [facility] BASOPHILS 0.3 % 08/12/2024 5:00 PM CDT [facility] IMMATURE GRANS % 0.5 % 08/13/19 5:00 PM CDT [facility] ABS. NEUTROPHILS 8.24(H) 1.80 - 7.70 x10'3/uL 08/12/2024 5:00 PM CDT [facility] ABS. LYMPHOCYTES 2.58 1.00 - 4.80 x10'3/uL 08/12/2024 5:00 PM CDT [facility] ABS. MONOCYTES 0.97(H) 0.24 - 0.86 x10'3/uL 08/12/2024 5:00 PM CDT [facility] ABS. EOSINOPHILS 0.28 0.04 - 0.36 x10'3/uL 08/12/2024 5:00 PM CDT [facility] ABS. BASOPHILS 0.04 0.01 - 0.08 x10'3/uL 08/12/2024 5:00 PM CDT [facility] ABS. IMMATURE GRANULOCYTES 0.06 0.00 - 0.49 x10'3/uL 08/12/2024 5:00 PM CDT [facility] 08/12/2024 4:49 PM CDT us [facility] Final Result [facility] [address] [place] [address], [place] [phone] * (ABNORMAL) URINALYSIS (08/12/2024 4:48 PM CDT) SPECIMEN TYPE URINE CLEAN CATCH 08/12/2024 4:48 PM CDT [facility] COLOR (U) LIGHT YELLOW 08/12/2024 5:07 PM CDT [facility] TRANSPARENCY CLEAR 08/12/2024 5:07 PM CDT [facility] SPECIFIC GRAVITY (U) 1.016 1.001 - 1.030 08/12/2024 5:07 PM CDT [facility] U PH 6.0 5.0 - 9.0 08/12/2024 5:07 PM CDT [facility] LEUKOCYTES (U) NEGATIVE NEGATIVE 08/12/2024 5:07 PM CDT [facility] NITRITES NEGATIVE NEGATIVE 08/12/2024 5:07 PM CDT [facility] PROTEIN RANDOM (U) NEGATIVE <30 MG/DL 08/12/2024 5:07 PM CDT [facility] GLUCOSE (U) 1000(A) NORMAL MG/DL 08/12/2024 5:07 PM CDT [facility] KETONES MG/DL (U) NEGATIVE NEGATIVE MG/DL 08/12/2024 5:07 PM CDT [facility] UROBILINOGEN NORMAL NORMAL MG/DL 08/12/2024 5:07 PM CDT [facility] BILIRUBIN (U) NEGATIVE NEGATIVE MG/DL 08/12/2024 5:07 PM CDT [facility] BLOOD (U) NEGATIVE NEGATIVE 08/12/2024 5:07 PM CDT [facility] URINE SPECIMEN OBTAINED BY CLEAN CATCH PROCEDURE / Unknown 08/12/2024 4:48 PM CDT us [facility] URINE ORDERABLES Final Result [facility] [address] [place] [address], [place] [phone] documented in this encounter Visit Diagnoses Diagnosis Generalized weakness- Primary Other malaise and fatigue Dysuria documented in this encounter Administered Medications Inactive Administered Medications - up to 3 most recent administrations Medication Order MAR Action Action Date Dose Rate Site dexamethasone (DECADRON) injection 6 mg 6 mg, Intravenous, Once, 1 dose, On Mon08/12/24 at 1645, If giving intravenously, administer slowly over 1-4 minutes. Given 08/12/2024 4:54 PM CDT 6 mg sodium chloride 0.9% bolus infusion 500 mL 500 mL, Intravenous, Administer over 30 Minutes, Bolus (Once), 1 dose, On Mon08/12/24 at 1715 New Bag 08/12/2024 5:20 PM CDT 500 mLs 1000 mL/hr documented in this encounter Active and Recently Administered Medications Times are shown in CDT. Scheduled Medication Order 08/10/2024 08/11/2024 08/12/2024 dexamethasone (DECADRON) injection 6 mg (COMPLETED) 6 mg, Intravenous, Once, 1 dose, On Mon08/12/24 at 1645, If giving intravenously, administer slowly over 1-4 minutes. 1654 (Given - Provid er: Nicole Linn RN) ketorolac (TORADOL) injection 15 mg 15 mg, Intravenous, Once, 1 dose, On Mon08/12/24 at 1645, For IV administration, give over 15 seconds. 1657 (Not Given - Pr ovider: Nicole Linn RN - Reason: Patient/family declined) sodium chloride 0.9% bolus infusion 500 mL (COMPLETED) 500 mL, Intravenous, Administer over 30 Minutes, Bolus (Once), 1 dose, On Mon08/12/24 at 1715 1720 (New Bag - Prov ider: Nicole Linn RN)1805 (Infusion Stop Time - Provider: Nicole Linn RN) documented in this encounter Care Teams Piecer Relationship Specialty Start Date End Date Justen Gale MD [facility] [address] [place], [place] [id number] PCP - General FAMILY PRACTICE 08/20/17 Meena Bansal MD [address] [address] [facility] [employer] Work[employer] CARDIOVASCULAR DISEASE 04/24/16 documented as of this encounter
--- OUTSIDE RECORDS SUMMARY | 2024-08-13 21:54 | XMS_ITS | Encounter Summary ---
Author Organization [facility] Address [address] [place] [address] Phone Care Team Providers Care Teacher'S Aide Name Role Phone Justen Gale MD Primary Care Provider [phone] David Roberts APRN, SHANK TURNER Unavailable [phone] Annel Rod MD Unavailable Reason for Visit * Reason Comments Medication Refill Encounter Details Date Type Department Care Team (Late st Contact Info) Description 03/05/2023 [facility]ill [facility] #2 [place] [address] Pili Elkins APRN, SHANK TURNER #[address] [address] Medication Refill Social History Tobacco [...] discontinued on 10/19/2022 by Justen Gale MD LAYER documented in this encounter Plan of Treatment Upcoming Encounters Date Type Department Care Team (Late st Contact Info) Description 09/18/2024 2:45 PM CDT Office Visit [facility]ology - [place] #2 [place] [address] Annel Rod MD #2 [facility] [address] [place] [address] 09/24/2024 2:00 PM CDT [facility] 1 [place] [address] Angelito Alegria APRN, SHANK TURNER #2 [facility] [address] [place] [address] Discharge Disposition: Discharged to home or Selfcare documented as of this encounter Visit Diagnoses Diagnosis Essential hypertension Unspecified essential hypertension documented in this encounter Additional Health Concerns Infection Onset Date Last Indicated Resolved Time COVID - 19 08/01/2024 08/01/2024 08/01/2024 3:20 PM CDT Assessment Noted Time PHQ-9 Depression Total Score: 8 01/18/20 23 2:24 PM CDT documented as of this encounter Care Teams Teacher'S Aide Relationship Specialty Start Date End Date Justen Gale MD #2 [facility] [address] [place] [address] PCP - General Family Medicine 10/17/17 David Roberts APRN, NETTA #2 [place] [address] Nurse Practitioner Advanced Practice Nurse 01/31/22 Annel Rod MD #2 [facility] [address] [place] [address] Consulting Physician Endocrinology 07/01/22 documented as of this encounter
--- OUTSIDE RECORDS SUMMARY | 2024-08-13 21:54 | XMS_ITS | Encounter Summary ---
Author Organization [facility] Address [address] [place] [address] Phone Care Team Providers Care Document Control Manager Name Role Phone Justen Gale MD Primary Care Provider [phone] David Roberts APRN, ELECTRIC SIGN ASSEMBLER Unavailable [phone] Annel Rod MD Unavailable Reason for Visit * Reason Comments Medication Refill Encounter Details Date Type Department Care Team (Late st Contact Info) Description 07/12/2022 Refill [facility] Family Medicine [facility] #2 [place] [address] Justen Gale MD #[address] [address] Medication Refill Social History Tobacco Use Types [...] 07/05/22 Office Visit Pili Elkins APRN, NETTA [facility] [place] 05/02/22 Office Visit Jusetn Gale MD [facility] [place] 03/03/22 Office Visit Pili Elkins APRN, ELECTRIC SIGN ASSEMBLER [facility] [place] 01/03/22 Office Visit Dannielle Berg PAC [facility] [place] 12/07/21 Office Visit Pili Elkins APRN, NETTA [facility] [place] 11/09/21 Office Visit Pili Elkins APRN, NETTA [facility] [place] 10/08/21 Office Visit Angelito Alegria APRN, NETTA [facility] [place] 08/30/21 Office Visit [facility] Show[facility] recent visits within past [...] Group - Endocrinology [facility] #2 [place] [address] Annel Rod MD #[address] [address] 09/24/2024 2:00 PM CDT [facility] 1 [place] [address] Angelito Alegria APRN, ELECTRIC SIGN ASSEMBLER #[address] [address] Discharge Disposition: Discharged to home or Selfcare documented as of this encounter Visit Diagnoses Not on filedocumented in this encounter Additional Health Concerns Infection Onset Date Last Indicated Resolved Time COVID - 19 08/01/2024 08/01/2024 08/01/2024 3:20 PM CDT Assessment Noted Time PHQ-9 Depression Total Score: 0 07/21/19 3:00 PM CDT documented as of this encounter Care Teams Document Control Manager Relationship Specialty Start Date End Date Justen Gale MD #[address] [address] PCP - General Family Medicine 10/17/17 David Roberts APRN, ELECTRIC SIGN ASSEMBLER #2 [place] [address] Nurse Practitioner Advanced Practice Nurse 01/31/22 Annel Rod MD #[address] [address] Consulting Physician Endocrinology 07/01/22 documented as of this encounter
--- OUTSIDE RECORDS SUMMARY | 2024-08-13 21:54 | XMS_ITS | Encounter Summary ---
Author Organization [facility] Address [address] [place] [address] Phone Care Team Providers Care Elevator Constructor Electric Name Role Phone Justen Gale MD Primary Care Provider [phone] David Roberts APRN, MANAGER PRODUCT Unavailable [phone] Annel Rod MD Unavailable Reason for Visit * Reason Comments Medication Refill Encounter Details Date Type Department Care Team (Late st Contact Info) Description 09/30/2023 Refill [facility]ocrinology - [place] #2 [place] [address] Annel Rod MD #[address] [address] Medication Refill Social History Tobacco [...] Description 09/18/2024 2:45 PM CDT Office [facility] - Endocrinology [facility] #2 [place] [address] Annel Rod MD #[address] [address] 09/24/2024 2:00 PM CDT [facility] 1 [place] [address] Angelito Alegria APRN, NETTA #[address] [address] Discharge Disposition: Discharged to home or Selfcare documented as of this encounter Visit Diagnoses Not on filedocumented in this encounter Additional Health Concerns Infection Onset Date Last Indicated Resolved Time COVID - 19 08/01/2024 08/01/2024 08/01/2024 3:20 PM CDT Assessment Noted Time PHQ-9 Depression Total Score: 8 01/18/20 23 2:24 PM CDT documented as of this encounter Care Teams Elevator Constructor Electric Relationship Specialty Start Date End Date Justen Gale MD #[address] [place] [address] PCP - General Family Medicine 10/17/17 David Roberts APRN, MANAGER PRODUCT #2 [place] [address] Nurse Practitioner Advanced Practice Nurse 01/31/22 Annel Rod MD #[address] [address] Consulting Physician Endocrinology 07/01/22 documented as of this encounter
--- OUTSIDE RECORDS SUMMARY | 2024-08-13 21:54 | XMS_ITS | Encounter Summary ---
Author Organization [facility] Address [address] [place] [address] Phone Care Team Providers Care Slide Machine Tender Name Role Phone Justen Gale MD Primary Care Provider [phone] David Roberts APRN, BELLMAN DRIVER Unavailable [phone] Annel Rod MD Unavailable Reason for Visit * Reason Comments Medication Refill Encounter Details Date Type Department Care Team (Late st Contact Info) Description 08/07/2023 Refill [facility]inology - [place] #2 [place] [address] Annel Rod MD #[address] [address] Medication Refill Social History Tobacco [...] Description 09/18/2024 2:45 PM CDT Office Visit [facility] - Endocrinology [facility] #2 [place] [address] Annel Rod MD #[address] [address] 09/24/2024 2:00 PM CDT [facility] 1 [place] [address] Angelito Alegria APRN, NETTA #[address] [address] Discharge Disposition: Discharged to home or Selfcare documented as of this encounter Visit Diagnoses Not on filedocumented in this encounter Additional Health Concerns Infection Onset Date Last Indicated Resolved Time COVID - 19 08/01/2024 08/01/2024 08/01/2024 3:20 PM CDT Assessment Noted Time PHQ-9 Depression Total Score: 8 01/18/20 23 2:24 PM CDT documented as of this encounter Care Teams Slide Machine Tender Relationship Specialty Start Date End Date Justen Gale MD #[address] [place] [address] PCP - General Family Medicine 10/17/17 David Roberts APRN, BELLMAN DRIVER #2 [place] [address] Nurse Practitioner Advanced Practice Nurse 01/31/22 Annel Rod MD #[address] [address] Consulting Physician Endocrinology 07/01/22 documented as of this encounter
--- OUTSIDE RECORDS SUMMARY | 2024-08-13 21:54 | XMS_ITS | Encounter Summary ---
Author Organization [facility] Address [address] [place] [address] Phone Care Team Providers Care Bowling Ball Mold Assembler Name Role Phone Justen Gale MD Primary Care Provider [phone] David Roberts APRN, DIRECTOR NEWS Unavailable [phone] Annel Rod MD Unavailable Reason for Visit * Reason Onset Date Comments Advice Only 11/21/2023 Encounter Details Date Type Department Care Team (Late st Contact Info) Description 11/21/2023 Telephone [facility] [address] [place] [address] Justen Gale MD #[address] [address] Advice Only Social History Tobacco Use Types [...] 11/21/2023 3:17 PM CDT RFC: Alejandra from [facility] is calling to state that patient [...] Medical Group - Endocrinology - [place] #2 [place] [address] Annel Rod MD #2 [facility] [address] [place] [address] 09/24/2024 2:00 PM CDT [facility] 1 [place] [address] Angelito Alegria APRN, DIRECTOR NEWS #2 [facility] [address] [place] [address] Discharge Disposition: Discharged to home or Selfcare documented as of this encounter Visit Diagnoses Not on filedocumented in this encounter Additional Health Concerns Infection Onset Date Last Indicated Resolved Time COVID - 19 08/01/2024 08/01/2024 08/01/2024 3:20 PM CDT Assessment Noted Time PHQ-9 Depression Total Score: 8 01/18/20 23 2:24 PM CDT documented as of this encounter Care Teams Bowling Ball Mold Assembler Relationship Specialty Start Date End Date Justen Gale MD #2 [facility] [address] [place] [address] PCP - General Family Medicine 10/17/17 David Roberts APRN, NETTA #2 [place] [address] Nurse Practitioner Advanced Practice Nurse 01/31/22 Annel Rod MD #2 [facility] [address] [place] [address] Consulting Physician Endocrinology 07/01/22 documented as of this encounter
--- OUTSIDE RECORDS SUMMARY | 2024-08-13 21:54 | XMS_ITS | Encounter Summary ---
Author Organization [facility] Address [address] [place] [address] Phone Care Team Providers Care Pest Control Service Representative Name Role Phone Justen Gale MD Primary Care Provider [phone] David Roberts APRN, VACUUM CLOSING MACHINE OPERATOR Unavailable [phone] Annel Rod MD Unavailable Reason for Visit * Reason Comments Medication Refill Encounter Details Date Type Department Care Team (Late st Contact Info) Description 04/13/2023 Refill [facility] - Endocrinology - [place] #2 [place] [address] Annel Rdo MD #[address] [address] Medication Refill Social History Tobacco [...] Telephone Encounter - Jennifer Wang RN - 04/14/2023 10:00 AM FIRE SPRINKLER DESIGNER Requested Prescriptions Pending Prescriptions Disp Refills ??? Continuous Blood Gluc Sensor (FreeStyle Eileen 2 Sensor) Misc [Pharmacy Med Name: FREESTYLE EILEEN 2 SENSOR] 6 Each 1 Sig: APPLY 1 SENSOR AND WEAR FOR 14 DAYS TO CHECK BLOOD SUGAR Next appt: 05/30/2023 SPRINKLER DESIGNER documented in this encounter Plan of Treatment Upcoming Encounters Date Type Department Care Team (Late st Contact Info) Description 09/18/2024 2:45 PM CDT Office Visit [facility]ology - [place] #2 [place] [address] Annel Rod MD #2 [facility] [address] [place] [address] 09/24/2024 2:00 PM CDT [facility] 1 [place] [address] Angelito Alegria, ZAMZAM, VACUUM CLOSING MACHINE OPERATOR #2 [facility] [address] [place] [address] Discharge Disposition: Discharged to home or Selfcare documented as of this encounter Visit Diagnoses Not on filedocumented in this encounter Additional Health Concerns Infection Onset Date Last Indicated Resolved Time COVID - 19 08/01/2024 08/01/2024 08/01/2024 3:20 PM CDT Assessment Noted Time PHQ-9 Depression Total Score: 8 01/18/20 23 2:24 PM CDT documented as of this encounter Care Teams Pest Control Service Representative Relationship Specialty Start Date End Date Justen Gale MD #[address] [address] PCP - General Family Medicine 10/17/17 David Roberts APRN, VACUUM CLOSING MACHINE OPERATOR #2 [place] [address] Nurse Practitioner Advanced Practice Nurse 01/31/22 Annle Rod MD #[address] [address] Consulting Physician Endocrinology 07/01/22 documented as of this encounter
--- OUTSIDE RECORDS SUMMARY | 2024-08-13 21:54 | XMS_ITS | Encounter Summary ---
Author Organization [facility] Address [address] [place] [address] Phone Care Team Providers Care Certified Physician Assistant Name Role Phone Lavonne Hathaway MD Primary Care Provider + [phone] Liu Jerez MD Unavailable [phone] Albert Corbin MD Unavailable [phone] Justen Gale MD Primary Care Provider [phone] Lavonne Hathaway MD Primary Care Provider + [phone] Justen Gale MD Primary Care Provider [phone] Khris Arthur MD Unavailable [phone] Ko Melendez MD Unavailable [phone] John Paul Moyer MD Unavailable Annel Rod MD Unavailable Anali MARSHALL MD, Carlos M. Unavailable [phone] Encounter Details Date Type Department Care Team ([facility] Contact Info) Description 05/15/2017 Orders Only [facility] Scanning, Provider Social History Tobacco Use Types Packs/Day Years Used Date Smoking Tobacco: Former Alcohol Use Standard Drinks/Week Comments No 0 (1 standard drink = 0.6 oz pur e alcohol) Comments Unknown Sex and Gender Information Value Date Recorded Sex Assigned at Not on file Legal Sex Female 12:24 AM WHEEL ALIGNMENT TECHNICIAN Gender Identity Not on file Sexual [...] COVID: Recovered 02/10/2022 02/10/2022 06/10/2022 3:05 AM WHEEL ALIGNMENT TECHNICIAN Exposure, COVID-19 Comment:Added automatically based on COVID19 lab answers indicating exposure risk 02/11/2022 02/11/2022 02/15/2022 9:06 AM C DT COVID: Suspected 05/14/2022 05/14/2022 05/14/2022 10:41 AM WHEEL ALIGNMENT TECHNICIAN COVID: Suspected 06/07/2022 06/07/2022 06/07/2022 12:28 PM WHEEL ALIGNMENT TECHNICIAN COVID: Suspected 06/21/2022 06/21/2022 06/21/2022 2:12 AM WHEEL ALIGNMENT TECHNICIAN COVID: Suspected 10/05/2022 10/05/2022 10/05/2022 7:40 PM CDT COVID: Suspected 01/04/2024 01/04/2024 01/04/2024 10:30 PM CDT COVID: Suspected 02/14/2024 02/14/2024 02/15/2024 12:36 AM CDT COVID: Suspected 07/01/2024 07/01/2024 07/01/2024 2:53 PM CDT COVID: Suspected 07/01/2024 07/01/2024 07/02/2024 3:05 AM CDT documented as of this encounter Care Teams Certified Physician Assistant Relationship Specialty Start Date End Date Lavonne Hathaway MD [address] [place] [address] [place] [address] PCP - General 08/16/16 08/17/17 Justen Gale MD 2 [facility] [address] [address] PCP - General 08/18/17 08/22/17 Lavonne Hathaway MD [address] [place] [address] [place] [address] PCP - General Family Medicine 08/23/17 10/08/17 Justen Gale MD 2 [facility] [address] [address] PCP - General 10/09/17 Liu Jerez MD [address] [place] [address] [place] [address] Consulting Physician Gastroenterology 07/28/17 [place] [address] [facility] [address] [place] [address] Consulting Physician Pulmonary Disease 08/03/17 Khris Arthur MD [address] [facility] [address] [place] [address] Medical Oncologist/Edge Cutting Machine Operator Medical Oncology 10/23/17 [place] [address] [facility] [address] [place] [address] Surgeon Orthopedic Surgery 10/23/17 [place] [address] [facility] [address] [place] [address] Consulting Physician Pain Management 10/23/17 [place] [address] [facility] [address] [place] [address] Referring Physician General Surgery 01/26/18 [place] [address] [facility] [address] [place] [address] Consulting Physician Neurology 01/26/18 documented as of this encounter
--- OUTSIDE RECORDS SUMMARY | 2024-08-13 21:54 | XMS_ITS | Encounter Summary ---
Author Organization [facility] Address [address] [place] [address] Phone Care Team Providers Care Automobile Mechanic Assistant Name Role Phone Justen Gale MD Primary Care Provider [phone] David Roberts APRN, ROCKBOARD LATHER Unavailable [phone] Annel Rod MD Unavailable Reason for Visit * Reason Comments Medication Refill Encounter Details Date Type Department Care Team (Late st Contact Info) Description 08/30/2022 Refill [facility] Family [facility] #2 [place] [address] Justen Gale MD #[address] [address] Medication Refill Social History Tobacco Use Types [...] Office Visit Pili Elkins APRN, NETTA [facility] [place] 05/02/22 Office Visit [facility] [place] 03/03/22 Office Visit Pili Elkins APRN, NETTA [facility] [place] 01/03/22 Office Visit Dannielle Berg PAC [facility] [place] 12/07/21 Office Visit Pili Elkins APRN, NETTA [facility] [place] 11/09/21 Office Visit Pili Elkins APRN, NETTA [facility] [place] 10/08/21 Office Visit Angelito Alegria APRN, NETTA [facility] [place] 08/30/21 [facility] past 365 [...] Medical Group - Endocrinology - [place] #2 [place] [address] Annel Rod MD #[address] [address] 09/24/2024 2:00 PM CDT Appointment [facility] Cardiology Services 1 [place] [address] Angelito Alegria, SALES MANAGER [employer], ROCKBOARD LATHER #[address] [address] Discharge Disposition: Discharged to home or Selfcare documented as of this encounter Visit Diagnoses Not on filedocumented in this encounter Additional Health Concerns Infection Onset Date Last Indicated Resolved Time COVID - 19 08/01/2024 08/01/2024 08/01/2024 3:20 PM CDT Assessment Noted Time PHQ-9 Depression Total Score: 0 07/21/19 3:00 PM CDT documented as of this encounter Care Teams Automobile Mechanic Assistant Relationship Specialty Start Date End Date Justen Gale MD #[address] [address] PCP - General Family Medicine 10/17/17 David Roberts, SALES MANAGER [employer], ROCKBOARD LATHER #2 [place] [address] Nurse Practitioner Advanced Practice Nurse 01/31/22 Annel Rdo MD #[address] [address] Consulting Physician Endocrinology 07/01/22 documented as of this encounter
--- OUTSIDE RECORDS SUMMARY | 2024-08-13 21:54 | XMS_ITS | Encounter Summary ---
Author Organization [facility] Address [address] [place] [address] Phone Care Team Providers Care Drafter Directional Survey Name Role Phone Liu Jerez MD Unavailable Albert Corbin MD Unavailable [phone] Justen Gale MD Primary Care Provider [phone] Khris Arthur MD Unavailable [phone] Ko Melendez MD Unavailable John Paul Moyer MD Unavailable Annel Rod MD Unavailable Anali MARSHALL MD, Carlos M. Unavailable [phone] Encounter Details Date Type Department Care Team [...] file Legal Sex Female 12:24 AM HIDE STRETCHER HAND Gender Identity Not on file Sexual [...] COVID: Recovered 02/10/2022 02/10/2022 06/10/2022 3:05 AM HIDE STRETCHER HAND Exposure, COVID-19 Comment:Added automatically based on COVID19 lab answers indicating exposure risk 02/11/2022 02/11/2022 02/15/2022 9:06 AM C DT COVID: Suspected 05/14/2022 05/14/2022 05/14/2022 10:41 AM HIDE STRETCHER HAND COVID: Suspected 06/07/2022 06/07/2022 06/07/2022 12:28 PM HIDE STRETCHER HAND COVID: Suspected 06/21/2022 06/21/2022 06/21/2022 2:12 AM HIDE STRETCHER HAND COVID: Suspected 10/05/2022 10/05/2022 10/05/2022 7:40 PM CDT COVID: Suspected 01/04/2024 01/04/2024 01/04/2024 10:30 PM CDT COVID: Suspected 02/14/2024 02/14/2024 02/15/2024 12:36 AM CDT COVID: Suspected 07/01/2024 07/01/2024 07/01/2024 2:53 PM CDT COVID: Suspected 07/01/2024 07/01/2024 07/02/2024 3:05 AM CDT documented as of this encounter Care Teams Drafter Directional Survey Relationship Specialty Start Date End Date Justen Gale MD 2 [facility] [address] [place] [address] PCP - General 10/09/17 Liu Jerez MD Consulting Physician Gastroenterology 07/28/17 [place] [address] [facility] [address] [place] [address] Consulting Physician Pulmonary Disease 08/03/17 [place] [address] [place] [address] [address] [place] [address] Medical Oncologist/V Belt Curer Medical Oncology 10/23/17 [place] [address] [address] Surgeon Orthopedic Surgery 10/23/17 [place] [address] [facility] [address] [place] [address] Consulting Physician Pain Management 10/23/17 [place] [address] [address] Referring Physician General Surgery 01/26/18 [place] [address] [facility] [address] [place] [address] Consulting Physician Neurology 01/26/18 documented as of this encounter
--- OUTSIDE RECORDS SUMMARY | 2024-08-13 21:54 | XMS_ITS | Encounter Summary ---
Author Organization [facility] Address [address] [place] [address] Phone Care Team Providers Care Principal Investigator Name Role Phone Justen Gale MD Primary Care Provider [phone] David Roberts APRN, SPOTTER Unavailable [phone] Annel Rod MD Unavailable Reason for Visit * Reason Comments Medication Refill Encounter Details Date Type Department Care Team (Late st Contact Info) Description 07/14/2022 Refill [facility] #2 [place] [address] Justen Gale MD #[address] [address] Medication Refill Social History Tobacco Use Types [...] Visit [facility] - Endocrinology - [place] #2 [place] [address] Annel Rod MD #2 [facility] [address] [place] [address] 09/24/2024 2:00 PM CDT [facility] 1 [place] [address] Angelito Alegria APRN, SPOTTER #2 [facility] [address] [place] [address] Discharge Disposition: Discharged to home or Selfcare documented as of this encounter Visit Diagnoses Not on filedocumented in this encounter Additional Health Concerns Infection Onset Date Last Indicated Resolved Time COVID - 19 08/01/2024 08/01/2024 08/01/2024 3:20 PM CDT Assessment Noted Time PHQ-9 Depression Total Score: 0 07/21/19 3:00 PM CDT documented as of this encounter Care Teams Principal Investigator Relationship Specialty Start Date End Date Justen Gale MD #2 [facility] [address] [place] [address] PCP - General Family Medicine 10/17/17 David Roberts, WATER TAXI BOAT MATE, SPOTTER #2 [place] [address] Nurse Practitioner Advanced Practice Nurse 01/31/22 Annel Rod MD #2 [facility] [address] [place] [address] Consulting Physician Endocrinology 07/01/22 documented as of this encounter
--- OUTSIDE RECORDS SUMMARY | 2024-08-13 21:54 | XMS_ITS | Clinical Summary ---
Author Organization [facility] Address [address] [place] [address] Phone Care Team Providers Care Anode Worker Name Role Phone Justen Gale MD Primary Care Provider [phone] Allergies Active Allergy Reactions Criticality Noted Date [...] - 6.0 % 09/29/2017 10:28 AM CDT [employer] [facility] EST. AVG GLUCOSE, A1C 186 mg/dL 09/29/2017 10:28 AM CDT [employer] [facility] Blood Venipuncture / Unknown 09/28/2017 8:41 PM CDT 09/28/2017 8:46 PM CDT Narrative [facility] - 09/29/2017 10:28 AM CDT HGB A1C INTERPRETATION NORMAL: <5.7% PRE-DIABETES: 5.7 - 6.4% DIABETES: 6.5% OR GREATER us Francisco Castaneda MD CHEMISTRY ORDERABLES Final Resul t [facility] [employer] [facility]# [id number] [address] [facility] [place] [place] [address] * (ABNORMAL) LIPID PANEL (09/28/2017 8:41 PM CDT) CHOLESTEROL 174 <200 mg/dL 09/30/2017 2:45 AM CDT [facility] [employer] [facility] TRIGLYCERIDE 109 <150 mg/dL 09/30/2017 2:45 AM CDT [facility] [employer] [facility] HDL 45 40 - 59 mg/dL 09/30/2017 2:45 AM CDT [facility] [employer] [facility] LDL CALCULATED 107(H) <100 mg/dL 09/30/2017 2:45 AM CDT [facility] [employer] [facility] NON-HDL CHOLESTEROL 129 <130 mg/dL 09/30/2017 2:45 AM CDT [facility] [employer] [facility] Blood Venipuncture / Unknown 09/28/2017 8:41 PM CDT 09/28/2017 8:46 PM CDT Narrative [facility] - 09/30/2017 2:45 AM CDT TOTAL CHOLESTEROL [...] Castaneda MD CHEMISTRY ORDERABLES Final Resul t [facility] [employer] [facility] [id number] [address] [facility] [place] [address] from Last 3 Months or Most Recently Relevant to Health Maintenance Insurance Advance Directives For more information, please contact: [phone] * Full Code (Latest Code Status on File) Date Activated Date Inactivated Comments 09/29/2017 7:45 AM 09/30/2017 9:14 PM * Full Code Date Activated Date Inactivated Comments 09/29/2017 1:25 AM 09/29/2017 7:45 AM Care Teams Anode Worker Relationship Specialty Start Date End Date Justen Gale MD [address] [facility] [address] [place] [address] PCP - General Cardiovascular Disease 09/14/17
[2024-08-13 21:57] LABS: Glucose Point of Care 366 mg/dl (65-105)
[2024-08-13] MEDS: LACTATED RINGERS 1,000 ML 999 ML IV CONT ×2 (22:37)
[2024-08-13 22:38] VITALS: BP 144/75; PULSE 79; RESP 16; O2SAT 97
--- OUTSIDE RECORDS SUMMARY | 2024-08-13 22:39 | XMS_ITS | Clinical Summary ---
Author Organization [facility] Address [address] [place] [id number] Care Team Providers Care Promotional Demonstrator Name Role Phone Liu Jerez MD Unavailable [phone] Albert Corbin MD Unavailable Justen Gale MD Primary Care Provider Khris Arthur MD Unavailable [phone] Ko Melendez MD Unavailable [phone] John Paul Moyer MD Unavailable Annel Rod [...] 05/22/2024 Assessment & Plan (05/26/2024 10:08 AM JUNIOR NETWORK ADMINISTRATOR): Presenting with urinary symptoms of right flank [...] 05/22/2024 Assessment & Plan (05/25/2024 7:52 AM JUNIOR NETWORK ADMINISTRATOR): Hx of breast cancer c/b DVT/bilateral Pes [...] 05/22/2024 Assessment & Plan (05/22/2024 1:14 PM JUNIOR NETWORK ADMINISTRATOR): -long-standing chronic back pain -CT L spine [...] complication, without long-term current use of insulin ([facility]) 10/23/2017 Assessment & Plan [...] 10/13/2017 Assessment & Plan (05/22/2024 12:29 PM JUNIOR NETWORK ADMINISTRATOR): -Hx stage II, ER positive, HER2 negative [...] 08/01/2017 Assessment & Plan (05/22/2024 12:33 PM JUNIOR NETWORK ADMINISTRATOR): -Hx LUL -Hospital provided CPAP ordered History of DVT (deep vein thrombosis) 08/01/2017 History of pulmonary embolism 08/01/2017 Generalized weakness 07/27/2017 Dyspnea 07/27/2017 Unintentional weight loss 07/27/2017 Acute cystitis without hematuria 07/27/2017 Nausea and vomiting 07/26/2017 Overview (07/28/2017): Added automatically from request for surgery [id number] Pulmonary embolism 08/09/2016 Assessment & Plan (10/23/2017 2:05 AM CDT): On Rivaroxaban Lymphedema of left upper extremity 08/09/2016 Assessment & Plan (05/25/2024 7:53 AM JUNIOR NETWORK ADMINISTRATOR): S/p L axillary lymph node dissection 2014, [...] syndrome Assessment & Plan (05/22/2024 11:18 AM JUNIOR NETWORK ADMINISTRATOR): -continue home Requip 5mg nightly Pain of lower extremity 03/12/2013 Overview (07/29/2016): Leg pain Essential hypertension Assessment & Plan (05/23/2024 10:42 AM JUNIOR NETWORK ADMINISTRATOR): -Chart history of HTN but not on meds -BP elevated on admission, likely some pain contributing -Monitor closely once pain under adequate control, discussed following up with PCP for this Chronic anticoagulation Restless leg syndrome 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 Type 2 diabetes mellitus without complication Assessment & Plan (05/24/2024 1:39 PM JUNIOR NETWORK ADMINISTRATOR): -Last Ha1c 8.4 in 2023, repeat 8.7 [...] [facility] Emergency [facility] [place], [place] [address] Myalgia (Primary Dx); Viral syndrome Discharge Disposition: Discharge to home or self care 05/30/2024 Orders Only [facility] [address] [facility] [address] [place] [address] Radha Mcgrath RN Lymphedema of left arm (Primary Dx); Malignant neoplasm of upper-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, unspecified estrogen receptor status (HCC); Malignant neoplasm of overlapping sites of left female breast, unspecified estrogen receptor status (HCC); Malignant neoplasm of female breast, unspecified estrogen receptor status, unspecified laterality, unspecified site of breast (HCC) 05/24/2024 Telephone [facility] [address] [place] [address] Radha Warner RN 05/23/2024 8:10 AM JUNIOR NETWORK ADMINISTRATOR Ancillary Procedure [facility] Vascular Lab IP [address] [facility] [address] [place] [address] 05/21/2024 9:12 PM JUNIOR NETWORK ADMINISTRATOR - 05/26/2024 6:45 PM JUNIOR NETWORK ADMINISTRATOR Hospital Encounter [facility] [address] [place] [address] Jimmie Zavala MD Liss, MD Ra Parnell, MD Sebastian Claros Rehan, MD Left arm pain (Primary Dx); Left leg pain; Shortness of breath; Urinary tract infection without hematuria, site unspecified; Allergy to drug Discharge Disposition: Discharge to home or self care 05/21/2024 12:58 PM JUNIOR NETWORK ADMINISTRATOR - 05/21/2024 11:59 PM JUNIOR NETWORK ADMINISTRATOR Hospital Encounter [facility] [address] [place] [address] Discharge Disposition: Discharge to home or self care 05/21/2024 11:00 AM JUNIOR NETWORK ADMINISTRATOR - 05/21/2024 11:59 PM JUNIOR NETWORK ADMINISTRATOR Hospital Encounter [facility] [address] [place] [address] 8 [place] [address] History of breast cancer; Axillary pain, left Discharge Disposition: Discharge to home or self care 05/16/2024 Telephone [facility] [address] [place] [address] 8 [place] [phone] Jeanine Ba Cordelia 05/16/2024 Orders Only [facility] [address] [place] [address] 8 [place] [phone] Radha Mcgrath RN History of breast cancer (Primary Dx); Axillary pain, left 05/16/2024 Orders Only [facility] [address] [place] [address] 8 [place] [phone] Khris Arthur MD Swelling of left upper [...] drink = 0.6 oz pur e alcohol) [facility] Utilities Answer Date Recorded In the [...] often do you attend chur ch or yarsani services? More than 4 times per year 05/24/2024 Do you belong to any clubs o r organizations such as restorationist groups, unions, fraternal or athletic groups, or [...] on file Legal Sex Female 12:24 AM JUNIOR NETWORK ADMINISTRATOR Gender Identity Not on file Sexual [...] GLUCOSE DEVICE Routine 05/26/2024 4 :27 PM JUNIOR NETWORK ADMINISTRATOR POCT GLUCOSE DEVICE Routine 05/26/2024 1 1:38 AM JUNIOR NETWORK ADMINISTRATOR POCT GLUCOSE DEVICE Routine 05/26/2024 8 :12 AM JUNIOR NETWORK ADMINISTRATOR EGFR Routine 05/26/2024 12:05 AM JUNIOR NETWORK ADMINISTRATOR DIFFERENTIAL AUTO Routine 05/26/2024 12: 05 AM JUNIOR NETWORK ADMINISTRATOR PHOSPHORUS Routine 05/26/2024 12:05 AM JUNIOR NETWORK ADMINISTRATOR COMPREHENSIVE METABOLIC PANEL Routine 05/26/2024 12:05 AM JUNIOR NETWORK ADMINISTRATOR MAGNESIUM Routine 05/26/2024 12:05 AM JUNIOR NETWORK ADMINISTRATOR CBC WITH AUTO DIFFERENTIAL Routine 05/26/2024 12:05 AM JUNIOR NETWORK ADMINISTRATOR POCT GLUCOSE DEVICE Routine 05/25/2024 7 :44 PM JUNIOR NETWORK ADMINISTRATOR POCT GLUCOSE DEVICE Routine 05/25/2024 5 :24 PM JUNIOR NETWORK ADMINISTRATOR POCT GLUCOSE DEVICE Routine 05/25/2024 1 1:37 AM JUNIOR NETWORK ADMINISTRATOR POCT GLUCOSE DEVICE Routine 05/25/2024 7 :27 AM JUNIOR NETWORK ADMINISTRATOR EGFR Routine 05/25/2024 12:20 AM JUNIOR NETWORK ADMINISTRATOR DIFFERENTIAL AUTO Routine 05/25/2024 12: 20 AM JUNIOR NETWORK ADMINISTRATOR PHOSPHORUS Routine 05/25/2024 12:20 AM JUNIOR NETWORK ADMINISTRATOR COMPREHENSIVE METABOLIC PANEL Routine 05/25/2024 12:20 AM JUNIOR NETWORK ADMINISTRATOR MAGNESIUM Routine 05/25/2024 12:20 AM JUNIOR NETWORK ADMINISTRATOR CBC WITH AUTO DIFFERENTIAL Routine 05/25/2024 12:20 AM JUNIOR NETWORK ADMINISTRATOR POCT GLUCOSE DEVICE Routine 05/24/2024 8 :13 PM JUNIOR NETWORK ADMINISTRATOR POCT GLUCOSE DEVICE Routine 05/24/2024 5 :17 PM JUNIOR NETWORK ADMINISTRATOR POCT GLUCOSE DEVICE Routine 05/24/2024 1 2:49 PM JUNIOR NETWORK ADMINISTRATOR POCT GLUCOSE DEVICE Routine 05/24/2024 9 :22 AM JUNIOR NETWORK ADMINISTRATOR HERPES SIMPLEX VIRUS (HSV) PCR Routine 05/24/2024 8:47 AM JUNIOR NETWORK ADMINISTRATOR POCT GLUCOSE DEVICE Routine 05/24/2024 8 :22 AM JUNIOR NETWORK ADMINISTRATOR EGFR Routine 05/24/2024 12:29 AM JUNIOR NETWORK ADMINISTRATOR DIFFERENTIAL AUTO Routine 05/24/2024 12: 29 AM JUNIOR NETWORK ADMINISTRATOR PHOSPHORUS Routine 05/24/2024 12:29 AM JUNIOR NETWORK ADMINISTRATOR COMPREHENSIVE METABOLIC PANEL Routine 05/24/2024 12:29 AM JUNIOR NETWORK ADMINISTRATOR MAGNESIUM Routine 05/24/2024 12:29 AM JUNIOR NETWORK ADMINISTRATOR CBC WITH AUTO DIFFERENTIAL Routine 05/24/2024 12:29 AM JUNIOR NETWORK ADMINISTRATOR POCT GLUCOSE DEVICE Routine 05/23/2024 8 :16 PM JUNIOR NETWORK ADMINISTRATOR POCT GLUCOSE DEVICE Routine 05/23/2024 6 :14 PM JUNIOR NETWORK ADMINISTRATOR POCT GLUCOSE DEVICE Routine 05/23/2024 1 2:17 PM JUNIOR NETWORK ADMINISTRATOR US VEIN DUPLEX LOWER EXTREMITY BILATERAL COMPLETE IP Routine 05/23/2024 11:45 AM JUNIOR NETWORK ADMINISTRATOR POCT GLUCOSE DEVICE Routine 05/23/2024 8 :16 AM JUNIOR NETWORK ADMINISTRATOR DIFFERENTIAL AUTO Routine 05/23/2024 2:3 0 AM JUNIOR NETWORK ADMINISTRATOR CBC WITH AUTO DIFFERENTIAL Routine 05/23/2024 2:30 AM JUNIOR NETWORK ADMINISTRATOR EGFR Routine 05/23/2024 12:42 AM JUNIOR NETWORK ADMINISTRATOR LACTATE DEHYDROGENASE Routine 05/23/2024 12:42 AM JUNIOR NETWORK ADMINISTRATOR URIC ACID Routine 05/23/2024 12:42 AM JUNIOR NETWORK ADMINISTRATOR TYPE AND SCREEN Timed 05/23/2024 12:42 AM JUNIOR NETWORK ADMINISTRATOR PHOSPHORUS Routine 05/23/2024 12:42 AM JUNIOR NETWORK ADMINISTRATOR COMPREHENSIVE METABOLIC PANEL Routine 05/23/2024 12:42 AM JUNIOR NETWORK ADMINISTRATOR MAGNESIUM Routine 05/23/2024 12:42 AM JUNIOR NETWORK ADMINISTRATOR POCT GLUCOSE DEVICE Routine 05/22/2024 8 :56 PM JUNIOR NETWORK ADMINISTRATOR POCT GLUCOSE DEVICE Routine 05/22/2024 6 :09 PM JUNIOR NETWORK ADMINISTRATOR POCT GLUCOSE DEVICE Routine 05/22/2024 4 :26 PM JUNIOR NETWORK ADMINISTRATOR CT ABDOMEN PELVIS W CONTRAST ED 05/22/2024 2:32 PM JUNIOR NETWORK ADMINISTRATOR POCT GLUCOSE DEVICE Routine 05/22/2024 1 2:58 PM JUNIOR NETWORK ADMINISTRATOR POCT GLUCOSE DEVICE Routine 05/22/2024 9 :29 AM JUNIOR NETWORK ADMINISTRATOR POCT GLUCOSE DEVICE Routine 05/22/2024 6 :54 AM JUNIOR NETWORK ADMINISTRATOR CT CHEST PE W CONTRAST ED 05/22/2024 1:31 AM JUNIOR NETWORK ADMINISTRATOR D-DIMER, QUANTITATIVE Routine 05/22/2024 12:24 AM JUNIOR NETWORK ADMINISTRATOR URINALYSIS, MICROSCOPIC ONLY Routine 05/21/2024 11:09 PM JUNIOR NETWORK ADMINISTRATOR TROPONIN I HIGH-SENSITIVITY 2-HOUR Timed 05/21/2024 11:09 PM JUNIOR NETWORK ADMINISTRATOR URINE CULTURE Routine 05/21/2024 11:09 PM JUNIOR NETWORK ADMINISTRATOR RESPIRATORY PATHOGEN PANEL Routine 05/21/2024 11:09 PM JUNIOR NETWORK ADMINISTRATOR URINALYSIS AND REFLEX TO MICROSCOPIC AND CULTURE Routine 05/21/2024 11:09 PM JUNIOR NETWORK ADMINISTRATOR POCT GLUCOSE DEVICE Routine 05/21/2024 8 :55 PM JUNIOR NETWORK ADMINISTRATOR TROPONIN I HIGH-SENSITIVITY 4-HOUR Timed 05/21/2024 7:26 PM JUNIOR NETWORK ADMINISTRATOR LIPID PANEL STAT 05/21/2024 4:20 PM JUNIOR NETWORK ADMINISTRATOR HEMOGLOBIN A1C STAT 05/21/2024 4:20 PM JUNIOR NETWORK ADMINISTRATOR EGFR STAT 05/21/2024 4:20 PM JUNIOR NETWORK ADMINISTRATOR DIFFERENTIAL AUTO STAT 05/21/2024 4:2 0 PM JUNIOR NETWORK ADMINISTRATOR TROPONIN I HIGH-SENSITIVITY SERIES (BASELINE, 2HR, 4HR, 6HR) STAT 05/21/2024 4:20 PM JUNIOR NETWORK ADMINISTRATOR COMPREHENSIVE METABOLIC PANEL STAT 05/21/2024 4:20 PM JUNIOR NETWORK ADMINISTRATOR CBC WITH AUTO DIFFERENTIAL STAT 05/21/2024 4:20 PM JUNIOR NETWORK ADMINISTRATOR XR CHEST PA LATERAL 2 VIEWS ED 05/21/2024 2:23 PM JUNIOR NETWORK ADMINISTRATOR POCT GLUCOSE DEVICE Routine 05/21/2024 1 :39 PM JUNIOR NETWORK ADMINISTRATOR ECG 12-LEAD STAT 05/21/2024 1:36 PM JUNIOR NETWORK ADMINISTRATOR US AXILLARY LEFT Schedule Routine, Read Routine (OP Routine) 05/21/2024 12:13 PM JUNIOR NETWORK ADMINISTRATOR History of breast cancer Axillary pain, left [...] since last night. 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 AR: VALERY Report ID: [id number] Reading Location: [id number] Procedure Note Juve Gallegos MD - 07/01/2024 [...] Juve Gallegos M.D. AR: VALERY Report ID: [id number] Reading Location: [place] [address] [address] IMG [address] PROCEDURES Final Resu lt * (ABNORMAL) Troponin T high-sensitivity 2-hour (07/01/2024 3:43 PM CDT) Trop T hs 27(H) <=14 ng/L Comment: Interpretive Data For further hscTnT resources including the diagnostic algorithm and an aid in interpretation, copy and paste this link: https://nrl.testcatalog.org/show/hsTrop Current Interpretive Data last revised 2020. Testing performed by: [address] [address] Trop T hs delta 0 ng/L MARY JANE PHAM Comment:Testing performed by : [address] [address] Trop T hs interp Insignificant MARY JANE Comment:Testing performed by : [address] [address] Blood 07/01/2024 3:43 PM CDT 07/01/2024 3:52 PM CDT us Ilana Stevens MD LAB BLOOD ORDERABLES F inal Result [facility] [address] [facility] Department [place] [address] * (ABNORMAL) Urinalysis reflex to microscopic and culture Urine (07/01/2024 3:43 PM CDT) Color, ur Yellow Yellow Comment:Testing performed by : [address] [address] Clarity, ur Clear Clear MARY JANE Comment:Testing performed by : [address], [place]., [address] Specific gravity, ur 1.020 1.003 - 1.030 MARY JANE Comment:Testing performed by : [address], [place]., [address] pH, urine 6.0 MARY JANE Comment: Interpretive Data U rine pH is affected by diet, medications, systemic acid-base disturbances, and renal tubular function. pH may affect urinary stone formation. For example, urine pH below 6.0 may help reduce the tendency for calcium phosphate stones and pH greater than 6.0 may reduce the tendency for uric acid stone formation. Source: [facility] Upfront Chromatography Current Interpretive Data was last revised on 2017 Testing performed by: [address], [place]., [address] Protein, ur ql Negative Negative MARY JANE Comment:Testing performed by : [address] [address] Glucose, ur ql 2+(A) Negative MARY JANE Comment:Testing performed by : [address] [address] Ketones, ur Negative Negative MARY JANE Comment:Testing performed by : [address] [address] Bilirubin, ur Negative Negative MARY JANE Comment:Testing performed by : [address] [address] Blood, ur Trace(A) Negative MARY JANE Comment:Testing performed by : [address] [address] Urobilinogen, ur <2.0 <2.0 mg/dL MARY JANE Comment:Testing performed by : [address] [address] Nitrite, ur Negative Negative MARY JANE Comment:Testing performed by : [address] [address] Leukocyte esterase, ur Negative Negative MARY JANE Comment:Testing performed by : [address] [address] UA reflex comment Reflex to microscopic UA will be performed. MARY JANE Comment:Testing performed by : [address] [address] Urine 07/01/2024 3:43 PM CDT 07/01/2024 3:52 PM CDT Ilana Stevens MD LAB MICROBIOLOGY - GEN ERAL ORDERABLES Final Result Performing Organization Address [facility] de Phone Number MARY JANE [address] [place] [address] * (ABNORMAL) Urinalysis, microscopic only (07/01/2024 3:43 PM CDT) WBC, ur 0-5 0 - 5 /HPF Comment:Testing performed by : [address] [address] RBC, ur 3-5(A) 0 - 2 /HPF MARY JANE Comment:Testing performed by : [address] [address] Epithelial cells, squamous, ur 1-5 0 - 5 /HPF MARY JANE Comment:Testing performed by : [address] [address] Mucous, ur Present(A) MARY JANE Comment:Testing performed by : [address] [address] Culture Reflex Comment Reflex conditions for urine culture (WBC >10) not met. MARY JANE Comment:Testing performed by : [address] [address] Urine 07/01/2024 3:43 PM CDT 07/01/2024 3:52 PM CDT Ilana Stevens MD LAB URINE ORDERABLES F inal Result Performing Organization Address [facility] Co de Phone Number [facility] [address] [facility] [place] [address] * XR Chest 1 Vw Portable (if [...] Romelia Bowen D.O. PS: PS Report ID: [id number] Reading Location: [id number] Procedure Note Romelia Bowen, - 07/01/2024 EXAM [...] Romelia Bowen D.O. PS: PS Report ID: [id number] Reading Location: [id number] us Ilana Stevens MD IMG XR PROCEDURES Deann l Result * ECG 12 lead (07/01/2024 2:05 PM CDT) Ventricular Rate EKG/Min 76 BPM [facility] Atrial Rate [address] [facility] MD-Interval (MSEC) 130 ms [facility] QRS-Interval (MSEC) 86 ms [facility] QT-Interval (MSEC) 386 ms [facility] QTc [address] [facility] P [place] 26 degrees [facility] R [place] [address] [facility] T [place] [address] [facility] Diagnosis Normal sinus rhythm Normal ECG When compared with ECG of 28-DEC-2023 12:49, No significant change was found Confirmed by DUTCH BURGOS M.D. ([id number]) on 07/01/2024 10:10:[address] [facility] 07/01/2024 2:05 PM CDT 07/01/2024 10:10 PM CDT us Ilana Stevens MD ECG ORDERABLES Final Result [facility] * (ABNORMAL) Troponin T high-sensitivity series (baseline, 2hr, 4hr, 6hr) (07/01/2024 2:02 PM CDT) Pathologist [facility] Trop T hs 27(H) <=14 ng/L Comment: Interpretive Data For further hscTnT resources including the diagnostic algorithm and an aid in interpretation, copy and paste this link: https://nrl.testcatalog.org/show/hsTrop Current Interpretive Data last revised 2020. Testing performed by: [facility], [address] [place] [address]., [address] Blood 07/01/2024 2:02 PM CDT 07/01/2024 2:12 PM CDT us Ilana Stevens MD LAB BLOOD ORDERABLES F inal Result Performing Organization Address City/[facility]/ZIP Co de Phone Number MARY JANE [facility] Department [place] [address] * Influenza A/B, RSV, and COVID-19 PCR Nasopharyngeal (07/01/2024 2:02 PM CDT) [facility] COVID-19 RNA Negative Negative Comment:Testing performed by : [address] [address] Influenza A RNA Negative Negative [facility] Comment:Testing performed by : [address] [address] Influenza B RNA Negative Negative [facility] Comment:Testing performed by : [address] [address] RSV RNA Negative Negative [facility] Comment: Interpretive data: Testing performed by [facility]. This test is performed using the [employer] Xpert Xpress CoV-2/Flu/RSV plus [...] Data last revised 2023 Testing performed by: [address] [address] Nasopharyngeal 07/01/2024 2: 02 PM CDT 07/01/2024 2:12 PM CDT Narrative [facility] - 07/01/2024 2:52 PM CDT Is the Patient experiencing symptoms consistent with COVID?->Yes Ilana Stevens MD LAB MICROBIOLOGY - GEN ERAL ORDERABLES Final Result Performing Organization Address City/[facility]/ZIP Co de Phone Number MARY JANE [address] [facility] Department [place] [address] * eGFR (07/01/2024 2:02 PM CDT) [facility] eGFR >90 >=60 mL/min/1. 73 m2 [...] was last reviewed 2021. Testing performed by: [address] [address] Blood 07/01/2024 2:02 PM CDT 07/01/2024 2:12 PM CDT us Ilana Stevens MD LAB BLOOD ORDERABLES F inal Result MARY JANE [address] [facility] Department [place] [address] * Differential, auto (07/01/2024 2:02 PM CDT) [facility] Neutrophil abs 5.3 1.5 - 6.5 K/cumm Comment:Testing performed by : [address] [address] Imm gran abs 0.0 0.0 - 0.1 K/cumm MARY JANE Comment:Testing performed by : [address] [address] Lymphocyte abs 2.6 0.8 - 3.3 K/cumm MARY JANE Comment:Testing performed by : [address] [address] Monocyte abs 0.8 0.2 - 0.8 K/cumm MARY JANE Comment:Testing performed by : [address] [address] Eosinophil abs 0.2 0.0 - 0.5 K/cumm MARY JANE Comment:Testing performed by : [address], [place]., [address] Basophil abs 0.0 0.0 - 0.1 K/cumm [facility] Comment:Testing performed by : [address] [address] Neutrophil pct 59.1 % [facility] Comment: Interpretive Data Percent cell count reference ranges are not reported, since discordance with absolute values may lead to misinterpretation of CBC data. Current Interpretive Data was last revised on 2017. Testing performed by: [address] [address] Imm gran pct 0.2 % [facility] Comment: Interpretive Data Percent cell count reference ranges are not reported, since discordance with absolute values may lead to misinterpretation of CBC data. Current Interpretive Data was last revised on 2017. Testing performed by: [address] [address] Lymphocyte pct 29.0 % [facility] Comment: Interpretive Data Percent cell count reference ranges are not reported, since discordance with absolute values may lead to misinterpretation of CBC data. Current Interpretive Data was last revised on 2017. Testing performed by: [address] [address] Monocyte pct 9.3 % [facility] Comment: Interpretive Data Percent cell count reference ranges are not reported, since discordance with absolute values may lead to misinterpretation of CBC data. Current Interpretive Data was last revised on 2017. Testing performed by: [address] [address] Eosinophil pct 2.2 % [facility] Comment: Interpretive Data Percent cell count reference ranges are not reported, since discordance with absolute values may lead to misinterpretation of CBC data. Current Interpretive Data was last revised on 2017. Testing performed by: [address] [address] Basophil pct 0.2 % MARY JANE PHAM Comment: Interpretive Data Percent cell count reference ranges are not reported, since discordance with absolute values may lead to misinterpretation of CBC data. Current Interpretive Data was last revised on 2017. Testing performed by: [facility], [address] [place] [address]., [address] Blood 07/01/2024 2:02 PM CDT 07/01/2024 2:12 PM CDT us Ilana Stevens MD LAB BLOOD ORDERABLES F inal Result MARY JANE PHAM [address] [facility] Department [place] [address] * Pro B-type natriuretic peptide [...] Last Revised Date: 2017. Testing performed by: [address] [address] Blood 07/01/2024 2:02 PM CDT 07/01/2024 2:12 PM CDT us Ilana Stevens MD LAB BLOOD ORDERABLES F inal Result [facility]0 [facility] Department [place] [address] * (ABNORMAL) CBC with auto differential (07/01/2024 2:02 PM CDT) [facility] WBC 9.0 3.8 - 9.9 K/cumm Comment:Testing performed by : [address] [address] Hgb 13.2 11.9 - 15.5 g/dL MARY JANE Comment:Testing performed by : [address] [address] Hct 41.1 35.6 - 45.5 % MARY JANE Comment:Testing performed by : [address] [address] Plt 277 150 - 400 K/cumm MARY JANE Comment:Testing performed by : [address] [address] MPV 9.5 9.1 - 12.3 fL MARY JANE Comment:Testing performed by : [address] [address] RBC 4.53 3.90 - 5.20 M/cumm MARY JANE PHAM Comment:Testing performed by : [address] [address] MCV 90.7 81.3 - 96.4 fL MARY JANE PHAM Comment:Testing performed by : [address] [address] MCH 29.1 27.1 - 33.3 pg MARY JANE PHAM Comment:Testing performed by : [address] [address] MCHC 32.1(L) 32.3 - 35.7 g/dL MARY JANE PHAM Comment:Testing performed by : [address] [address] RDW CV 13.2 11.1 - 14.9 % MARY JANE PHAM Comment:Testing performed by : [address] [address] RDW SD 44.2 35.7 - 48.1 fL MARY JANE PHAM Comment:Testing performed by : [address] [address] NRBC abs 0.00 0.00 - 0.01 K/cumm MARY JANE PHAM Comment:Testing performed by : [address] [address] Blood 07/01/2024 2:02 PM CDT 07/01/2024 2:12 PM CDT Ilana Stevens MD LAB BLOOD ORDERABLES F inal Result [facility] [address] [facility] Department of Laboratories [place], [place] [id number] * Comprehensive metabolic panel (07/01/2024 2:02 PM CDT) Sodium 137 135 - 145 mmol/L Comment:Testing performed by : [address] [address] Potassium, pl 4.2 3.3 - 4.9 mmol/L MARY JANE PHAM Comment:Testing performed by : [address] [address] Chloride 101 97 - 110 mmol/L MARY JANE PHAM Comment:Testing performed by : [address] [address] CO2 27 22 - 32 mmol/L MARY JANE PHAM Comment:Testing performed by : [address] [address] Anion gap 9 2 - 15 mmol/L MARY JANE PHAM Comment:Testing performed by : [address] [address] BUN 15 6 - 25 mg/dL MARY JANE Comment:Testing performed by : [address] [address] Creatinine 0.60 0.60 - 1.10 mg/dL MARY JANE Comment:Testing performed by : [address] [address] Glucose 166 70 - 199 mg/dL MARY [...] was last revised 2022. Testing performed by: [address] [address] Calcium 9.8 8.5 - 10.3 mg/dL [facility] Comment:Testing performed by : [address] [address] Bilirubin, total 0.5 0.1 - 1.2 mg/dL [facility] Comment:Testing performed by : [address] [address] Protein, pl 8.0 6.5 - 8.5 g/dL MARY JANE Comment:Testing performed by : [address] [address] Albumin 3.8 3.5 - 5.0 g/dL [facility] Comment:Testing performed by : [address] [address] Alk phos 72 40 - 130 Units/L MARY JANE Comment:Testing performed by : [address] [address] ALT 19 7 - 45 Units/L MARY JANE Comment:Testing performed by : [address] [address] AST 23 10 - 45 Units/L MARY JANE PHAM Comment:Testing performed by : [facility], [address] [place] [address], [place]., [address] Blood 07/01/2024 2:02 PM CDT 07/01/2024 2:12 PM CDT Ilana Stevens MD LAB BLOOD ORDERABLES F inal Result Performing Organization Address City/[facility] Co de Phone Number MARY JANE [address] [facility] Department [place] [address] * POCT glucose (05/26/2024 4:27 PM JUNIOR NETWORK ADMINISTRATOR) Glucose, POC 137 70 - 199 mg/dL Blood 05/26/2024 4:27 PM JUNIOR NETWORK ADMINISTRATOR 05/26/2024 4:27 PM JUNIOR NETWORK ADMINISTRATOR Carlos Real MD LAB POCT ORDERABLES - DEVICE Fin al Result Performing Organization Address [facility] de Phone Number [facility] Department [place] [address] * POCT glucose (05/26/2024 11:38 AM JUNIOR NETWORK ADMINISTRATOR) Glucose, POC 146 70 - 199 mg/dL Blood 05/26/2024 11:3 8 AM JUNIOR NETWORK ADMINISTRATOR 05/26/2024 11:38 AM JUNIOR NETWORK ADMINISTRATOR Carlos Real MD LAB POCT ORDERABLES - DEVICE Fin al Result Performing Organization Address [facility] de Phone Number [facility] [place] [address] * POCT glucose (05/26/2024 8:12 AM JUNIOR NETWORK ADMINISTRATOR) Glucose, POC 134 70 - 199 mg/dL Blood 05/26/2024 8:12 AM JUNIOR NETWORK ADMINISTRATOR 05/26/2024 8:12 AM JUNIOR NETWORK ADMINISTRATOR Carlos Real MD LAB POCT ORDERABLES - DEVICE Fin al Result Performing Organization Address [facility] Co de Phone Number MARY JANE [facility] Department [place] [address] * eGFR (05/26/2024 12:05 AM JUNIOR NETWORK ADMINISTRATOR) eGFR >90 >=60 mL/min/1. 73 m2 Comment: [...] reviewed 2021. Blood 05/26/2024 12:0 5 AM JUNIOR NETWORK ADMINISTRATOR 05/26/2024 12:23 AM JUNIOR NETWORK ADMINISTRATOR Carlos Real MD LAB BLOOD ORDERABLES Final Resul t Performing Organization Address City/[facility] Co de Phone Number [facility] Department [place] [address] * (ABNORMAL) Differential, auto (05/26/2024 12:05 AM JUNIOR NETWORK ADMINISTRATOR) Neutrophil abs 6.4 1.5 - 6.5 K/cumm [...] revised on 2017. Lymphocyte pct 27.5 % [facility] Comment: Interpretive Data [...] on 2017. Blood 05/26/2024 12:0 5 AM JUNIOR NETWORK ADMINISTRATOR 05/26/2024 12:07 AM JUNIOR NETWORK ADMINISTRATOR us Carlos Real MD LAB BLOOD ORDERABLES Final Resul t [facility] Department [place] [address] * (ABNORMAL) CBC with auto differential (05/26/2024 12:05 AM JUNIOR NETWORK ADMINISTRATOR) [facility] WBC 10.6(H) 3.8 - 9.9 K/cumm [...] [facility] Blood 05/26/2024 12:0 5 AM JUNIOR NETWORK ADMINISTRATOR 05/26/2024 12:07 AM JUNIOR NETWORK ADMINISTRATOR Carlos Real MD LAB BLOOD ORDERABLES Final Resul t Performing Organization Address City/[facility] Co de Phone Number [facility] Department [place] [address] * Phosphorus (05/26/2024 12:05 AM JUNIOR NETWORK ADMINISTRATOR) [facility] Phosphorus, pl 3.2 2.3 - 4.5 mg/dL Blood 05/26/2024 12:0 5 AM JUNIOR NETWORK ADMINISTRATOR 05/26/2024 12:08 AM JUNIOR NETWORK ADMINISTRATOR Carlos Real MD LAB BLOOD ORDERABLES Final Resul t [facility] [place] [address] * Magnesium (05/26/2024 12:05 AM JUNIOR NETWORK ADMINISTRATOR) [facility] Magnesium 1.8 1.4 - 2.5 mg/dL Blood 05/26/2024 12:0 5 AM JUNIOR NETWORK ADMINISTRATOR 05/26/2024 12:08 AM JUNIOR NETWORK ADMINISTRATOR us Carlos Real MD LAB BLOOD ORDERABLES Final Resul t [facility] Department [place] [address] * (ABNORMAL) Comprehensive metabolic panel (05/26/2024 12:05 AM JUNIOR NETWORK ADMINISTRATOR) Sodium 136 135 - 145 mmol/L Potassium, pl 4.2 3.3 - 4.9 mmol/L [facility] Chloride 101 97 - 110 mmol/L [facility] CO2 29 22 - 32 mmol/L [facility] Anion gap 6 2 - 15 mmol/L [facility] BUN 19 6 - 25 mg/dL [facility] Creatinine 0.67 0.60 - 1.10 mg/dL [facility] Glucose 164 70 - 199 [...] Calcium 9.4 8.5 - 10.3 mg/dL [facility] Bilirubin, total 0.4 0.1 - 1.2 mg/dL [facility] Protein, pl 7.1 6.5 - 8.5 g/dL [facility] Albumin 3.3(L) 3.5 - 5.0 g/dL [facility] Alk phos 65 40 - 130 Units/L [facility] ALT 17 7 - 45 Units/L [facility] AST 19 10 - 45 Units/L [facility] Blood 05/26/2024 12:0 5 AM JUNIOR NETWORK ADMINISTRATOR 05/26/2024 12:08 AM JUNIOR NETWORK ADMINISTRATOR Carlos Real MD LAB BLOOD ORDERABLES Final Resul t Performing Organization Address [facility] de Phone Number [facility] [place] [address] * POCT glucose (05/25/2024 7:44 PM JUNIOR NETWORK ADMINISTRATOR) Glucose, POC 160 70 - 199 mg/dL Blood 05/25/2024 7:44 PM JUNIOR NETWORK ADMINISTRATOR 05/25/2024 7:44 PM JUNIOR NETWORK ADMINISTRATOR Carlos Real MD LAB POCT ORDERABLES - DEVICE Fin al Result Performing Organization Address [facility] Phone Number [facility] Department [place] [address] * POCT glucose (05/25/2024 5:24 PM JUNIOR NETWORK ADMINISTRATOR) Glucose, POC 152 70 - 199 mg/dL Blood 05/25/2024 5:24 PM JUNIOR NETWORK ADMINISTRATOR 05/25/2024 5:24 PM JUNIOR NETWORK ADMINISTRATOR Carlos Real MD LAB POCT ORDERABLES - DEVICE Fin al Result Performing Organization Address [facility] de Phone Number [facility] Department [place] [address] * POCT glucose (05/25/2024 11:37 AM JUNIOR NETWORK ADMINISTRATOR) Glucose, POC 143 70 - 199 mg/dL Blood 05/25/2024 11:3 7 AM JUNIOR NETWORK ADMINISTRATOR 05/25/2024 11:37 AM JUNIOR NETWORK ADMINISTRATOR Carlos Real MD LAB POCT ORDERABLES - DEVICE Fin al Result Performing Organization Address [facility] de Phone Number [facility] [place] [address] * POCT glucose (05/25/2024 7:27 AM JUNIOR NETWORK ADMINISTRATOR) Glucose, POC 134 70 - 199 mg/dL Blood 05/25/2024 7:27 AM JUNIOR NETWORK ADMINISTRATOR 05/25/2024 7:27 AM JUNIOR NETWORK ADMINISTRATOR us Carlos Real MD LAB POCT ORDERABLES - [place] [address] * eGFR (05/25/2024 12:20 AM JUNIOR NETWORK ADMINISTRATOR) Pathologist [facility] eGFR >90 >=60 mL/min/1. 73 m2 [...] reviewed 2021. Blood 05/25/2024 12:2 0 AM JUNIOR NETWORK ADMINISTRATOR 05/25/2024 12:43 AM JUNIOR NETWORK ADMINISTRATOR us Naila Guzman NP LAB BLOOD ORDERABLES Final Result [facility] [place] [address] * Differential, auto (05/25/2024 12:20 AM JUNIOR NETWORK ADMINISTRATOR) Neutrophil abs 5.9 1.5 - 6.5 K/cumm Imm gran abs 0.0 0.0 - 0.1 K/cumm [facility] Lymphocyte abs 2.4 0.8 - 3.3 K/cumm [facility] Monocyte abs 0.8 0.2 - 0.8 K/cumm [facility] Eosinophil abs 0.3 0.0 - 0.5 K/cumm [facility] Basophil abs 0.0 0.0 - 0.1 K/cumm [facility] Neutrophil pct 62.6 % [facility] Comment: Interpretive Data Percent cell [...] on 2017. Blood 05/25/2024 12:2 0 AM JUNIOR NETWORK ADMINISTRATOR 05/25/2024 12:29 AM JUNIOR NETWORK ADMINISTRATOR Naila Guzman LEAD CAREGIVER LAB BLOOD ORDERABLES Final Result [facility] Department [place] [address] * (ABNORMAL) CBC with auto differential (05/25/2024 12:20 AM JUNIOR NETWORK ADMINISTRATOR) Pathologist [facility] WBC 9.5 3.8 - 9.9 K/cumm [...] [facility] Blood 05/25/2024 12:2 0 AM JUNIOR NETWORK ADMINISTRATOR 05/25/2024 12:29 AM JUNIOR NETWORK ADMINISTRATOR Naila Guzman NP LAB BLOOD ORDERABLES Final Result [facility] Department [place] [address] * Phosphorus (05/25/2024 12:20 AM JUNIOR NETWORK ADMINISTRATOR) Pathologist [facility] Phosphorus, pl 3.1 2.3 - 4.5 mg/dL Blood 05/25/2024 12:2 0 AM JUNIOR NETWORK ADMINISTRATOR 05/25/2024 12:29 AM JUNIOR NETWORK ADMINISTRATOR Naila Gumzan LEAD CAREGIVER LAB BLOOD ORDERABLES Final Result [facility] Department [place] [address] * Magnesium (05/25/2024 12:20 AM JUNIOR NETWORK ADMINISTRATOR) [facility] Magnesium 1.9 1.4 - 2.5 mg/dL Blood 05/25/2024 12:2 0 AM JUNIOR NETWORK ADMINISTRATOR 05/25/2024 12:29 AM JUNIOR NETWORK ADMINISTRATOR Naila Heather Guzman LEAD CAREGIVER LAB BLOOD ORDERABLES Final Result Performing Organization Address [facility] de Phone Number [facility] Department [place] [address] * (ABNORMAL) Comprehensive metabolic panel (05/25/2024 12:20 AM JUNIOR NETWORK ADMINISTRATOR) [facility] Sodium 138 135 - 145 mmol/L [...] [facility] Blood 05/25/2024 12:2 0 AM JUNIOR NETWORK ADMINISTRATOR 05/25/2024 12:29 AM JUNIOR NETWORK ADMINISTRATOR Naila Guzman LEAD CAREGIVER LAB BLOOD ORDERABLES Final Result Performing Organization Address [facility] Co de Phone Number [facility] [place] [address] * POCT glucose (05/24/2024 8:13 PM JUNIOR NETWORK ADMINISTRATOR) Glucose, POC 171 70 - 199 mg/dL Blood 05/24/2024 8:13 PM JUNIOR NETWORK ADMINISTRATOR 05/24/2024 8:13 PM JUNIOR NETWORK ADMINISTRATOR Result [facility] Carlos Real MD LAB POCT ORDERABLES - DEVICE Fin al Result Performing Organization Address [facility] Co de Phone Number [facility] [place] [address] * POCT glucose (05/24/2024 5:17 PM JUNIOR NETWORK ADMINISTRATOR) Glucose, POC 133 70 - 199 mg/dL Blood 05/24/2024 5:17 PM JUNIOR NETWORK ADMINISTRATOR 05/24/2024 5:17 PM JUNIOR NETWORK ADMINISTRATOR Carlos Real MD LAB POCT ORDERABLES - DEVICE Fin al Result Performing Organization Address [facility] Co de Phone Number [facility] [place] [address] * POCT glucose (05/24/2024 12:49 PM JUNIOR NETWORK ADMINISTRATOR) Glucose, POC 180 70 - 199 mg/dL Blood 05/24/2024 12:4 9 PM JUNIOR NETWORK ADMINISTRATOR 05/24/2024 12:49 PM JUNIOR NETWORK ADMINISTRATOR Result [facility] Cralos Real MD LAB POCT ORDERABLES - DEVICE Fin al Result Performing Organization Address [facility] de Phone Number [facility] Department [place] [address] * POCT glucose (05/24/2024 9:22 AM JUNIOR NETWORK ADMINISTRATOR) Glucose, POC 139 70 - 199 mg/dL Blood 05/24/2024 9:22 AM JUNIOR NETWORK ADMINISTRATOR 05/24/2024 9:22 AM JUNIOR NETWORK ADMINISTRATOR Result [facility] Carlos Real MD LAB POCT ORDERABLES - DEVICE Fin al Result Performing Organization Address [facility] de Phone Number [facility] Department [place] [address] * Herpes Simplex Virus (HSV) PCR Oral (05/24/2024 8:47 AM JUNIOR NETWORK ADMINISTRATOR) [facility] HSV DNA Not Detected Not Detected [facility] Comment: Interpretive Data This assay [...] reviewed on 08/21/2018 Oral 05/24/2024 8:47 AM JUNIOR NETWORK ADMINISTRATOR 05/24/2024 9:24 AM JUNIOR NETWORK ADMINISTRATOR Narrative MARY JANE [facility] - 05/24/2024 4:28 PM JUNIOR NETWORK ADMINISTRATOR Oral ulcer swab Result [facility] Naila Guzman NP LAB MICROBIOLOGY - GENERAL ORDERABLES Final Result Performing Organization Address City/[facility]/ZIP Co de Phone Number [facility] [place] [address] [facility] * POCT glucose (05/24/2024 8:22 AM JUNIOR NETWORK ADMINISTRATOR) Glucose, POC 132 70 - 199 mg/dL Blood 05/24/2024 8:22 AM JUNIOR NETWORK ADMINISTRATOR 05/24/2024 8:22 AM JUNIOR NETWORK ADMINISTRATOR Carlos Real MD LAB POCT ORDERABLES - DEVICE Fin al Result Performing Organization Address [facility] de Phone Number [facility] Department [place] [address] * eGFR (05/24/2024 12:29 AM JUNIOR NETWORK ADMINISTRATOR) eGFR 87 >=60 mL/min/1. 73 m2 Comment: [...] reviewed 2021. Blood 05/24/2024 12:2 9 AM JUNIOR NETWORK ADMINISTRATOR 05/24/2024 12:54 AM JUNIOR NETWORK ADMINISTRATOR Naila Guzman NP LAB BLOOD ORDERABLES Final Result MARY JANE [facility] Department [place] [address] * (ABNORMAL) Differential, auto (05/24/2024 12:29 AM JUNIOR NETWORK ADMINISTRATOR) Neutrophil abs 5.3 1.5 - 6.5 K/cumm [...] on 2017. Eosinophil pct 3.0 % [facility] Comment: Interpretive Data Percent cell count reference ranges are not reported, since discordance with absolute values may lead to misinterpretation of CBC data. Current Interpretive Data was last revised on 2017. Basophil pct 0.4 % [facility] Comment: Interpretive Data Percent cell count reference ranges are not reported, since discordance with absolute values may lead to misinterpretation of CBC data. Current Interpretive Data was last revised on 2017. Blood 05/24/2024 12:2 9 AM JUNIOR NETWORK ADMINISTRATOR 05/24/2024 12:54 AM JUNIOR NETWORK ADMINISTRATOR Naila Guzman NP LAB BLOOD ORDERABLES Final Result Performing Organization Address City/[facility] Co de Phone Number [facility] [place] [address] * CBC with auto differential (05/24/2024 12:29 AM JUNIOR NETWORK ADMINISTRATOR) WBC 9.5 3.8 - 9.9 K/cumm Hgb [...] [facility] Blood 05/24/2024 12:2 9 AM JUNIOR NETWORK ADMINISTRATOR 05/24/2024 12:54 AM JUNIOR NETWORK ADMINISTRATOR Naila Guzman NP LAB BLOOD ORDERABLES Final Result Performing Organization Address [facility]/ZIP Co de Phone Number [facility] [place] [address] * Phosphorus (05/24/2024 12:29 AM JUNIOR NETWORK ADMINISTRATOR) Phosphorus, pl 3.6 2.3 - 4.5 mg/dL Blood 05/24/2024 12:2 9 AM JUNIOR NETWORK ADMINISTRATOR 05/24/2024 12:54 AM JUNIOR NETWORK ADMINISTRATOR Naila Guzman LEAD CAREGIVER LAB BLOOD ORDERABLES Final Result Performing Organization Address City/[facility] Co de Phone Number [facility] [place] [address] * Magnesium (05/24/2024 12:29 AM JUNIOR NETWORK ADMINISTRATOR) Pathologist [facility] Magnesium 1.9 1.4 - 2.5 mg/dL Blood 05/24/2024 12:2 9 AM JUNIOR NETWORK ADMINISTRATOR 05/24/2024 12:54 AM JUNIOR NETWORK ADMINISTRATOR Naila Guzman LEAD CAREGIVER LAB BLOOD ORDERABLES Final Result Performing Organization Address [facility] de Phone Number [facility] [place] [address] * (ABNORMAL) Comprehensive metabolic panel (05/24/2024 12:29 AM JUNIOR NETWORK ADMINISTRATOR) [facility] Sodium 139 135 - 145 mmol/L [...] phos 65 40 - 130 Units/L [facility] ALT 18 7 - 45 Units/L [facility] AST 17 10 - 45 Units/L [facility] Blood 05/24/2024 12:2 9 AM JUNIOR NETWORK ADMINISTRATOR 05/24/2024 12:54 AM JUNIOR NETWORK ADMINISTRATOR Naila Guzman LEAD CAREGIVER LAB BLOOD ORDERABLES Final Result Performing Organization Address [facility] de Phone Number [facility] Department [place] [address] * POCT glucose (05/23/2024 8:16 PM JUNIOR NETWORK ADMINISTRATOR) Glucose, POC 145 70 - 199 mg/dL Blood 05/23/2024 8:16 PM JUNIOR NETWORK ADMINISTRATOR 05/23/2024 8:16 PM JUNIOR NETWORK ADMINISTRATOR Carlos Real MD LAB POCT ORDERABLES - DEVICE Fin al Result Performing Organization Address [facility] de Phone Number [facility] Department [place] [address] * POCT glucose (05/23/2024 6:14 PM JUNIOR NETWORK ADMINISTRATOR) Glucose, POC 181 70 - 199 mg/dL Blood 05/23/2024 6:14 PM JUNIOR NETWORK ADMINISTRATOR 05/23/2024 6:14 PM JUNIOR NETWORK ADMINISTRATOR Carlos Real MD LAB POCT ORDERABLES - DEVICE Fin al Result Performing Organization Address [facility] de Phone Number [facility] Department [place] [address] * POCT glucose (05/23/2024 12:17 PM JUNIOR NETWORK ADMINISTRATOR) Glucose, POC 159 70 - 199 mg/dL Blood 05/23/2024 12:1 7 PM JUNIOR NETWORK ADMINISTRATOR 05/23/2024 12:17 PM JUNIOR NETWORK ADMINISTRATOR us Cem Knapp MD LAB POCT ORDERABLES - DEVIC E Final Result MARY JANE ANGELES [facility] Department [place] [address] * US Vein Duplex Lower Extremity Bilateral Complete (05/23/2024 11:45 AM JUNIOR NETWORK ADMINISTRATOR) LV EF % CONS SCIMAGE Anatomical Region Laterality Modality Vascular Bilateral Ultrasound 05/23/2024 11:1 2 AM JUNIOR NETWORK ADMINISTRATOR Narrative 05/23/2024 9:43 PM JUNIOR NETWORK ADMINISTRATOR [facility] [employer] - Department of Vascular Surgery, Vascular Laboratory [address] [place] [id number] Lower Extremity Venous Ultrasound Report Patient Name: MOHSEN MARQUES M : 1955 (68y 11m) Study Date: 05/23/2024 11:12:03 AM Gender: F Tech: VELVET Location: [id number] Ref Provider: CARLOS REAL Quality: Adequate Order Provider: CARLOS REAL PROCEDURES: Vascular Report: Venous Duplex imaging was performed bilaterally in the lower extremities. The common femoral, femoral, popliteal, posterior tibial, peroneal veins were evaluated for patency, spontaneity and phasicity with Doppler, compression and augmentation maneuvers. Great saphenous vein proximal at the junction was evaluated with compression maneuvers. INDICATIONS: Localized edema. FINDINGS: Performing Asset Protection Representative: Marlys Castillo RVT. Bilateral: Venous Doppler signals [...] Vu Obregon MD FACS 05/23/2024 9:42:19 PM JUNIOR NETWORK ADMINISTRATOR Procedure Note Vu Obregon MD - 05/23/2024 [employer] - Department of Vascular Surgery,Vascular Laboratory [address] [place] [id number] Lower Extremity Venous Ultrasound Report Patient Name: MOHSEN MARQUES M : 1955 (68y 11m) Study Date: 05/23/2024 11:12:03 AM Gender: F Tech: VELVET Location: [id number] Ref Provider: CARLOS REAL Quality: Adequate Order Provider: CARLOS REAL PROCEDURES: Vascular Report: Venous Duplex imaging was performed bilaterally in the lower extremities.The common femoral, femoral, popliteal, posterior tibial, peroneal veins wereevaluated for patency, spontaneity and phasicity with Doppler, compression and augmentationmaneuvers. Great saphenous vein proximal at the junction was evaluated with compressionmaneuvers. INDICATIONS: Localized edema. FINDINGS: Performing Asset Protection Representative: Marlys Castillo RVT. Bilateral: Venous Doppler signals [...] Vu Obregon MD FACS 05/23/2024 9:42:19 PM JUNIOR NETWORK ADMINISTRATOR Carlos Real MD IMG US PROCEDURES Final Result * (ABNORMAL) POCT glucose (05/23/2024 8:16 AM JUNIOR NETWORK ADMINISTRATOR) Glucose, POC 204(H) 70 - 199 mg/dL Blood 05/23/2024 8:16 AM JUNIOR NETWORK ADMINISTRATOR 05/23/2024 8:16 AM JUNIOR NETWORK ADMINISTRATOR us Cem Knapp MD LAB POCT ORDERABLES - DEVIC E Final Result [facility] Department [place] [address] * (ABNORMAL) Differential, auto (05/23/2024 2:30 AM JUNIOR NETWORK ADMINISTRATOR) Pathologist [facility] Neutrophil abs 8.0(H) 1.5 - 6.5 K/cumm Imm gran abs 0.1 0.0 - 0.1 K/cumm [facility] Lymphocyte abs 2.6 0.8 - 3.3 K/cumm [facility] Monocyte abs 1.0(H) 0.2 - 0.8 K/cumm [facility] Eosinophil abs 0.3 0.0 - 0.5 K/cumm [facility] Basophil abs 0.0 0.0 - [...] revised on 2017. Blood 05/23/2024 2:30 AM JUNIOR NETWORK ADMINISTRATOR 05/23/2024 1:03 AM JUNIOR NETWORK ADMINISTRATOR us Naila Guzman LEAD CAREGIVER LAB BLOOD ORDERABLES Final Result [facility] Department [place] [address] * (ABNORMAL) CBC with auto differential (05/23/2024 2:30 AM JUNIOR NETWORK ADMINISTRATOR) WBC 11.9(H) 3.8 - 9.9 K/cumm Hgb [...] [facility] Blood 05/23/2024 2:30 AM JUNIOR NETWORK ADMINISTRATOR 05/23/2024 1:03 AM JUNIOR NETWORK ADMINISTRATOR Naila Guzman NP LAB BLOOD ORDERABLES Final Result Performing Organization Address [facility]/ZIP Co de Phone Number [facility] [place] [address] * eGFR (05/23/2024 12:42 AM JUNIOR NETWORK ADMINISTRATOR) eGFR 84 >=60 mL/min/1. 73 m2 Comment: [...] reviewed 2021. Blood 05/23/2024 12:4 2 AM JUNIOR NETWORK ADMINISTRATOR 05/23/2024 1:02 AM JUNIOR NETWORK ADMINISTRATOR Naila Guzman NP LAB BLOOD ORDERABLES Final Result Performing Organization Address [facility]/ZIP Co de Phone Number [facility] [place] [address] * Type and screen (05/23/2024 12:42 AM JUNIOR NETWORK ADMINISTRATOR) ABO Rh O Positive Dilcia, indirect Negative [facility] Blood 05/23/2024 12:4 2 AM JUNIOR NETWORK ADMINISTRATOR 05/23/2024 12:52 AM JUNIOR NETWORK ADMINISTRATOR [facility]ative [facility] 05/23/2024 1:53 AM JUNIOR NETWORK ADMINISTRATOR Has the patient had Daratumumab or Isatuximab in the past 6 months?->Unknown Naila Guzman NP LAB BLOOD BANK TEST ORDERA BLES Final Result Performing Organization Address City/[facility]/ZIP Co de Phone Number [facility] [place] [address] * Uric acid (05/23/2024 12:42 AM JUNIOR NETWORK ADMINISTRATOR) Uric acid 5.5 2.5 - 7.0 mg/dL Blood 05/23/2024 12:4 2 AM JUNIOR NETWORK ADMINISTRATOR 05/23/2024 1:02 AM JUNIOR NETWORK ADMINISTRATOR [facility]ative [facility] 05/23/2024 1:34 AM JUNIOR NETWORK ADMINISTRATOR Monday and only. Morning draw. . Naila Guzman NP LAB BLOOD ORDERABLES Final Result Performing Organization Address [facility] [place] [address] * Phosphorus (05/23/2024 12:42 AM JUNIOR NETWORK ADMINISTRATOR) Phosphorus, pl 4.4 2.3 - 4.5 mg/dL Blood 05/23/2024 12:4 2 AM JUNIOR NETWORK ADMINISTRATOR 05/23/2024 1:02 AM JUNIOR NETWORK ADMINISTRATOR Naila Guzman NP LAB BLOOD ORDERABLES Final Result Performing Organization Address [facility] [place] [address] * Magnesium (05/23/2024 12:42 AM JUNIOR NETWORK ADMINISTRATOR) Magnesium 1.9 1.4 - 2.5 mg/dL Blood 05/23/2024 12:4 2 AM JUNIOR NETWORK ADMINISTRATOR 05/23/2024 1:02 AM JUNIOR NETWORK ADMINISTRATOR Naila Guzman NP LAB BLOOD ORDERABLES Final Result Performing Organization Address [facility] de Phone Number [facility] Department [place] [address] * Lactate dehydrogenase (LD) (05/23/2024 12:42 AM JUNIOR NETWORK ADMINISTRATOR) [facility] Lactate dehydrogenase (LDH) 247 100 - 250 Units/L Blood 05/23/2024 12:4 2 AM JUNIOR NETWORK ADMINISTRATOR 05/23/2024 1:02 AM JUNIOR NETWORK ADMINISTRATOR Narrative [facility] - 05/23/2024 1:34 AM JUNIOR NETWORK ADMINISTRATOR Monday and only. Morning draw. Naila Guzman NP LAB BLOOD ORDERABLES Final Result Performing Organization Address [facility] de Phone Number [facility] [place] [address] * Comprehensive metabolic panel (05/23/2024 12:42 AM JUNIOR NETWORK ADMINISTRATOR) [facility] Sodium 136 135 - 145 mmol/L [...] Calcium 9.5 8.5 - 10.3 mg/dL [facility] Bilirubin, total 0.5 0.1 - 1.2 mg/dL [facility] Protein, pl 7.4 6.5 - 8.5 g/dL [facility] Albumin 3.5 3.5 - 5.0 g/dL [facility] Alk phos 71 40 - 130 Units/L [facility] ALT 19 7 - 45 Units/L [facility] AST 22 10 - 45 Units/L [facility] Blood 05/23/2024 12:4 2 AM JUNIOR NETWORK ADMINISTRATOR 05/23/2024 1:02 AM JUNIOR NETWORK ADMINISTRATOR us Naila Guzman NP LAB BLOOD ORDERABLES Final Result Performing Organization Address [facility] Co de Phone Number [facility] Department [place] [address] * (ABNORMAL) POCT glucose (05/22/2024 8:56 PM JUNIOR NETWORK ADMINISTRATOR) Glucose, POC 210(H) 70 - 199 mg/dL Blood 05/22/2024 8:56 PM JUNIOR NETWORK ADMINISTRATOR 05/22/2024 8:56 PM JUNIOR NETWORK ADMINISTRATOR us Cem Knapp MD LAB POCT ORDERABLES - DEVIC E Final Result [facility] Department [place] [address] * POCT glucose (05/22/2024 6:09 PM JUNIOR NETWORK ADMINISTRATOR) Glucose, POC 142 70 - 199 mg/dL Blood 05/22/2024 6:09 PM JUNIOR NETWORK ADMINISTRATOR 05/22/2024 6:09 PM JUNIOR NETWORK ADMINISTRATOR us Leo Henry MD LAB POCT ORDERABLES - NILESH CE Final Result [facility] Department [place] [address] * POCT glucose (05/22/2024 4:26 PM JUNIOR NETWORK ADMINISTRATOR) Glucose, POC 133 70 - 199 mg/dL Blood 05/22/2024 4:26 PM JUNIOR NETWORK ADMINISTRATOR 05/22/2024 4:26 PM JUNIOR NETWORK ADMINISTRATOR us Leo Henry MD LAB POCT ORDERABLES - NILESH CE Final Result Performing Organization Address [facility] Co de Phone Number [facility] JANE ANGEL[facility] Department [place] [address] * CT Abdomen Pelvis W Contrast (05/22/2024 2:32 PM JUNIOR NETWORK ADMINISTRATOR) Anatomical Region Laterality Modality Body N/A Computed Tomogra phy 05/22/2024 4:35 PM JUNIOR NETWORK ADMINISTRATOR Impressions 05/22/2024 5:16 PM JUNIOR NETWORK ADMINISTRATOR No acute findings within the abdomen or pelvis. Dictated by: Yesi Mendes M.D. The radiology attending physician has personally reviewed this study, and had reviewed and/or edited this written report and agrees with it. Electronically signed by: Kelli Palmer M.D. Narrative 05/22/2024 5:16 PM JUNIOR NETWORK ADMINISTRATOR EXAMINATION: Computed tomography of the abdomen and [...] sult * POCT glucose (05/22/2024 12:58 PM JUNIOR NETWORK ADMINISTRATOR) Glucose, POC 177 70 - 199 mg/dL Blood 05/22/2024 12:5 8 PM JUNIOR NETWORK ADMINISTRATOR 05/22/2024 12:58 PM JUNIOR NETWORK ADMINISTRATOR Leo Henry MD LAB POCT ORDERABLES - NILESH CE Final Result Performing Organization Address City/[facility] Co de Phone Number [facility] Department of [place] [address] * (ABNORMAL) POCT glucose (05/22/2024 9:29 AM JUNIOR NETWORK ADMINISTRATOR) Glucose, POC 291(H) 70 - 199 mg/dL Blood 05/22/2024 9:29 AM JUNIOR NETWORK ADMINISTRATOR 05/22/2024 9:29 AM JUNIOR NETWORK ADMINISTRATOR Leo Henry MD LAB POCT ORDERABLES - NILESH CE Final Result Performing Organization Address [facility] Co de Phone Number [facility] Department [place] [address] * POCT glucose (05/22/2024 6:54 AM JUNIOR NETWORK ADMINISTRATOR) Glucose, POC 142 70 - 199 mg/dL Blood 05/22/2024 6:54 AM JUNIOR NETWORK ADMINISTRATOR 05/22/2024 6:54 AM JUNIOR NETWORK ADMINISTRATOR us Jimmie Zavala MD LAB POCT ORDERABLES - DEVICE Fin al Result [facility] Department [place] [address] * CT Chest PE (CTA) W Contrast (05/22/2024 1:31 AM JUNIOR NETWORK ADMINISTRATOR) Anatomical Region Laterality Modality Body N/A Computed Tomogra phy 05/22/2024 2:38 AM JUNIOR NETWORK ADMINISTRATOR Impressions 05/22/2024 9:12 AM JUNIOR NETWORK ADMINISTRATOR No pulmonary embolism. Dictated by: Miguel Milligan MD The radiology attending physician has personally reviewed this study, and had reviewed and/or edited this written report and agrees with it. Electronically signed by: Jayson Rockwell M.D. Narrative 05/22/2024 9:12 AM JUNIOR NETWORK ADMINISTRATOR EXAMINATION: CT CHEST PE (CTA) W CONTRAST [...] Result * D-dimer, quantitative (05/22/2024 12:24 AM JUNIOR NETWORK ADMINISTRATOR) D-Dimer 414 <=499 ng/mL FEU Comment: Interpretive [...] on 2019. Blood 05/22/2024 12:2 4 AM JUNIOR NETWORK ADMINISTRATOR 05/22/2024 12:42 AM JUNIOR NETWORK ADMINISTRATOR Angeline Soler MD LAB BLOOD ORDERABLES F inal Result Performing Organization Address [facility] Co de Phone Number [facility] Department [place] [address] * Troponin I high-sensitivity 2-hour (05/21/2024 11:09 PM JUNIOR NETWORK ADMINISTRATOR) Trop I hs 5 <=17 ng/L Comment: Interpretive Data For further hscTnI resources including the diagnostic algorithm and an aid in interpretation, copy and paste this link: https://bjhlab.testcatalog.org/show/hsTrop-1 Current Interpretive Data last revised 2019. Trop I hs delta See Comment ng/L [facility] Comment:Inappropriate collec tion time to report a delta. Trop I hs pct delta See Comment % [facility] Comment:Inappropriate collec tion time to report a delta. Trop I hs interp See Comment [facility] Comment:Inappropriate collec tion time to report a delta. Blood 05/21/2024 11:0 9 PM JUNIOR NETWORK ADMINISTRATOR 05/21/2024 11:26 PM JUNIOR NETWORK ADMINISTRATOR us Cira Castro MD LAB BLOOD ORDERABL ES Final Result Performing Organization Address [facility] Co de Phone Number [facility] Department [place] [address] * (ABNORMAL) Urinalysis reflex to microscopic and culture Urine (05/21/2024 11:09 PM JUNIOR NETWORK ADMINISTRATOR) Pathologist [facility] Color, ur Yellow Yellow Clarity, ur Clear [...] tendency for uric acid stone formation. Source: [facility] Current Interpretive Data was last revised [...] [facility] Urine 05/21/2024 11:0 9 PM JUNIOR NETWORK ADMINISTRATOR 05/21/2024 11:22 PM JUNIOR NETWORK ADMINISTRATOR Angeline Soler MD LAB MICROBIOLOGY - GEN ERAL ORDERABLES Final Result Performing Organization Address City/State/[facility] Co de Phone Number [facility] Department [place] [address] * Respiratory pathogen panel Nasopharyngeal (05/21/2024 11:09 PM JUNIOR NETWORK ADMINISTRATOR) [facility] Influenza A RNA Not Detected Not [...] [facility] Nasopharyngeal 05/21/2024 11 :09 PM JUNIOR NETWORK ADMINISTRATOR 05/22/2024 4:48 AM JUNIOR NETWORK ADMINISTRATOR Narrative [facility] - 05/22/2024 5:55 AM JUNIOR NETWORK ADMINISTRATOR Is the Patient experiencing symptoms consistent with COVID?->No Surveillance testing for transplant patient?->No Interpretive Data [employer] FilmArray Respiratory Panel (RP2.1) assay is a [...] assay has FDA clearance for testing of LEAD CAREGIVER swabs. The performance of additional specimen types has been assessed by the performing laboratory. The performance characteristics of this assay have been determined by [facility] Molecular Infectious Disease Laboratory. Current interpretive data was last revised on 22. Angeline Soler MD LAB MICROBIOLOGY - GEN ERAL ORDERABLES Final Result Performing Organization Address City/[facility] Co de Phone Number [facility] Department [place] [address] * (ABNORMAL) Urinalysis, microscopic only (05/21/2024 11:09 PM JUNIOR NETWORK ADMINISTRATOR) WBC, ur 11-20(A) 0 - 5 /HPF RBC, ur 3-5(A) 0 - 2 /HPF [facility] Epithelial cells, squamous, ur 1-5 0 - 5 /HPF [facility] Bacteria, ur 3+(A) [facility] Yeast, ur Trace(A) [facility] Mucous, ur Present(A) [facility] Culture Reflex Comment Reflex to urine culture will be performed. [facility] Urine 05/21/2024 11:0 9 PM JUNIOR NETWORK ADMINISTRATOR 05/21/2024 11:21 PM JUNIOR NETWORK ADMINISTRATOR Angeline Soler MD LAB URINE ORDERABLES F inal Result Performing Organization Address [facility] Co de Phone Number [facility] JANE [facility] Department [place] [address] * (ABNORMAL) Urine culture Urine (05/21/2024 11:09 PM JUNIOR NETWORK ADMINISTRATOR) Pathologist [facility] Report Amended Report - Complete: Greater than or equal to 100,000 colonies/mL of Escherichia coli Plus growth of clinically insignificant bacterial yesenia. (.) Organism ESCHERICHIA COLI [facility] Organism PLUS GROWTH OF CLINICALLY INSIGNIFICANT YESENIA. [facility] Urine 05/21/2024 11:0 9 PM JUNIOR NETWORK ADMINISTRATOR 05/22/2024 2:40 AM JUNIOR NETWORK ADMINISTRATOR Narrative [facility] - 05/25/2024 10:36 AM JUNIOR NETWORK ADMINISTRATOR Urine culture reflexed based upon urinalysis results. Testing performed by [facility] ([phone]) Organism Antibiotic Method Susceptibility Escherichia coli Ampicillin [...] Resistant Escherichia coli Fosfomycin INTERPRETATION Susceptible us nAgeline Soler MD LAB MICROBIOLOGY - GEN ERAL ORDERABLES Edited Result - Final [facility] Department [place] [address] * POCT glucose (05/21/2024 8:55 PM JUNIOR NETWORK ADMINISTRATOR) Pathologist [facility] Glucose, POC 139 70 - 199 mg/dL Blood 05/21/2024 8:55 PM JUNIOR NETWORK ADMINISTRATOR 05/21/2024 8:55 PM JUNIOR NETWORK ADMINISTRATOR Notinfile Unknown LAB POCT ORDERABLES - DEVICE F inal Result Performing Organization Address [facility] Co de Phone Number [facility] [place] [address] * Troponin I high-sensitivity 4-hour (05/21/2024 7:26 PM JUNIOR NETWORK ADMINISTRATOR) Trop I hs 4 <=17 ng/L Comment: Interpretive Data For further hscTnI resources including the diagnostic algorithm and an aid in interpretation, copy and paste this link: https://[email or web address].org/show/hsTrop-1 Current Interpretive Data last revised 2019. Trop I hs delta -1 ng/L [facility] Trop I hs interp Insignificant [facility] Blood 05/21/2024 7:26 PM JUNIOR NETWORK ADMINISTRATOR 05/21/2024 7:37 PM JUNIOR NETWORK ADMINISTRATOR Cira Castro MD LAB BLOOD ORDERABL ES Final Result Performing Organization Address [facility] de Phone Number [facility] Department [place] [address] * Troponin I high-sensitivity series (baseline, 2hr, 4hr, 6hr) (05/21/2024 4:20 PM JUNIOR NETWORK ADMINISTRATOR) Trop I hs 5 <=17 ng/L Comment: Interpretive Data For further hscTnI resources including the diagnostic algorithm and an aid in interpretation, copy and paste this link: https://[email or web address].org/show/hsTrop-1 Current Interpretive Data last revised 2019. Blood 05/21/2024 4:20 PM JUNIOR NETWORK ADMINISTRATOR 05/21/2024 4:50 PM JUNIOR NETWORK ADMINISTRATOR Jimmie Zavala MD LAB BLOOD ORDERABLES Final Resul t Performing Organization Address [facility] Co de Phone Number [facility] Department [place] [address] * eGFR (05/21/2024 4:20 PM JUNIOR NETWORK ADMINISTRATOR) Pathologist [facility] eGFR >90 >=60 mL/min/1. 73 m2 [...] last reviewed 2021. Blood 05/21/2024 4:20 PM JUNIOR NETWORK ADMINISTRATOR 05/21/2024 4:50 PM JUNIOR NETWORK ADMINISTRATOR us Jimmie Zavala MD LAB BLOOD ORDERABLES Final Resul t [facility] Department [place] [address] * (ABNORMAL) Differential, auto (05/21/2024 4:20 PM JUNIOR NETWORK ADMINISTRATOR) Pathologist [facility] Neutrophil abs [...] revised on 2017. Blood 05/21/2024 4:20 PM JUNIOR NETWORK ADMINISTRATOR 05/21/2024 4:50 PM JUNIOR NETWORK ADMINISTRATOR us Jimmie Zavala MD LAB BLOOD ORDERABLES Final Resul t [facility] Department [place] [address] * (ABNORMAL) CBC with auto differential (05/21/2024 4:20 PM JUNIOR NETWORK ADMINISTRATOR) WBC 11.4(H) 3.8 - 9.9 K/cumm Hgb [...] blood specimen / Unknown 05/21/2024 4:20 PM JUNIOR NETWORK ADMINISTRATOR 05/21/2024 4:50 PM JUNIOR NETWORK ADMINISTRATOR us Jimmie Zavala MD LAB BLOOD ORDERABLES Final Resul t Performing Organization Address City/[facility]/ZIP Co de Phone Number [facility] Department [place] [address] * (ABNORMAL) Hemoglobin A1c (05/21/2024 4:20 PM JUNIOR NETWORK ADMINISTRATOR) Hgb A1C 8.7(H) 4.0 - 5.6 % [...] a fasting glucose. Blood 05/21/2024 4:20 PM JUNIOR NETWORK ADMINISTRATOR 05/21/2024 4:55 PM JUNIOR NETWORK ADMINISTRATOR us Leo Henry MD LAB BLOOD ORDERABLES Final Result [facility] Department [place] [address] * (ABNORMAL) Lipid panel (05/21/2024 4:20 PM JUNIOR NETWORK ADMINISTRATOR) Cholesterol 205(H) 30 - 199 mg/dL Comment: [...] 2017. Triglycerides 92 <=149 mg/dL [facility] Comment: Interpretive Data Ages < [...] 2017. HDL 55 >=40 mg/dL [facility] Comment: Interpretive Data Ages < [...] LDL, calculated 134(H) <=129 mg/dL [facility] Comment: Interpretive Data Ages < [...] [facility] Blood 05/21/2024 4:20 PM JUNIOR NETWORK ADMINISTRATOR 05/21/2024 4:50 PM JUNIOR NETWORK ADMINISTRATOR Narrative [facility] - 05/22/2024 4:17 PM JUNIOR NETWORK ADMINISTRATOR Reflex Leo Henry MD LAB BLOOD ORDERABLES Final Result [facility] Department [place] [address] * Comprehensive metabolic panel (05/21/2024 4:20 PM JUNIOR NETWORK ADMINISTRATOR) Sodium 140 135 - 145 mmol/L Potassium, [...] [facility] Blood 05/21/2024 4:20 PM JUNIOR NETWORK ADMINISTRATOR 05/21/2024 4:50 PM JUNIOR NETWORK ADMINISTRATOR us Jimmie Zavala MD LAB BLOOD ORDERABLES Final Resul t [facility] [place] [address] * XR Chest Pa Lateral 2 Views (05/21/2024 2:23 PM JUNIOR NETWORK ADMINISTRATOR) Anatomical Region Laterality Modality Body, Chest N/A Computed Radiogr aphy 05/21/2024 2:28 PM JUNIOR NETWORK ADMINISTRATOR Impressions 05/21/2024 2:36 PM JUNIOR NETWORK ADMINISTRATOR The current study is compared with the [...] Jaime Neves M.D. Narrative 05/21/2024 2:36 PM JUNIOR NETWORK ADMINISTRATOR EXAMINATION: 2 view chest radiograph Procedure Note [...] Result * POCT glucose (05/21/2024 1:39 PM JUNIOR NETWORK ADMINISTRATOR) Glucose, POC 113 70 - 199 mg/dL Blood 05/21/2024 1:39 PM JUNIOR NETWORK ADMINISTRATOR 05/21/2024 1:39 PM JUNIOR NETWORK ADMINISTRATOR us Notinfile Unknown LAB POCT ORDERABLES - DEVICE F inal Result [facility] Department [place] [address] * ECG 12-LEAD (05/21/2024 1:36 PM JUNIOR NETWORK ADMINISTRATOR) Narrative [facility] - 05/21/2024 1:36 PM JUNIOR NETWORK ADMINISTRATOR Gil Mcgrath MD 05/21/2024 1:37 PM ECG [...] Performed by: Gil Mcgrath MD Authorized by: Vamhsi Díaz MD Rate: ECG rate: 78 ECG [...] MD ECG ORDERABLES Final Result [facility] * Axillary Breast Left (05/21/2024 12:13 PM JUNIOR NETWORK ADMINISTRATOR) Anatomical Region Laterality Modality Upper Extremities Left Ultrasound 05/21/2024 12:2 3 PM JUNIOR NETWORK ADMINISTRATOR Impressions 05/21/2024 12:23 PM JUNIOR NETWORK ADMINISTRATOR 1. Limited ultrasound due to extensive edema [...] Alicia Wilcox M.D. Narrative 05/21/2024 12:23 PM JUNIOR NETWORK ADMINISTRATOR EXAMINATION: LEFT AXILLARY ULTRASOUND HISTORY: Patient is [...] Bone mineral density was performed on a [employer] Seven Discovery Densitometer. Based on machine cross-calibration and [...] by the International Society of Clinical Densitometry. [id number] Khris Arthur MD IMG DXA PROCEDURES F [...] agrees with it. ACC# Date Time Exam [id number] Aug 19, 2016 14:27:00 [facility] [id number] Diag Mamm, inc CAD, unilat L Technologist(s): Carla Harris; ; [id number] Aug 19, 2016 15:39:00 [facility] [id number] Breast US unilateral, ltd L ACC# Date Time Exam [id number] Aug 19, 2016 14:27:00 [facility] 60407 Diag Mamm, inc CAD, unilat L Technologist(s): Carla Harris; ; [id number] Aug 19, 2016 15:39:00 [facility] [id number] Breast US unilateral, ltd L EXAMINATION: LEFT [...] SARABIA M.D. on Aug 19 2016 4:20P [id number] Procedure Note Miscellaneous, Not In File / Provider, MD Tyler - 09/17/2016 ANTHONY SARABIA M.D. JUDY RINCON M.D. FINAL REPORT The radiology attending physician has personally reviewed this study, and has reviewed and/or edited this written report and agrees with it. ACC# Date Time Exam [id number] Aug 19, 2016 14:27:00 [facility] 94013 Diag Mamm, inc CAD, unilat L Technologist(s): Carla Harris; ; [id number] Aug 19, 2016 15:39:00 C 31116 Breast US unilateral, ltd L ACC# Date Time Exam [id number] Aug 19, 2016 14:27:00 C 21838 Diag Mamm, inc CAD, unilat L Technologist(s): Carla Harris; ; [id number] Aug 19, 2016 15:39:00 C 73351 Breast US unilateral, ltd L EXAMINATION: LEFT [...] SARABIA M.D. on Aug 19 2016 4:20P [id number] us Not In File Miscellaneous IMG MAMMO PROCEDURES F inal Result from Last 3 Months or Most Recently Relevant to Health Maintenance Insurance [facility] MED[facility] AD[facility]ANT[facility] Address: [facility] [address] [place] [address] [employer] MEDICARE ADVANTAGE [facility] MEDICARE ADVANTAGE [facility] Address: [facility] [address] [place] [address] Advance Directives For more information, please contact: [phone] Documents on File Type Date Recorded Patient Nougat Candy Maker Helper Expl anation ADVANCE DIRECTIVE 12/23/2021 2:49 PM Power of Drying Machine Back Tender-Medical ADVANCE DIRECTIVE 12/23/2021 2:49 PM Living Will [...] First Alternate Health Care Agent Care Teams Promotional Demonstrator Relationship Specialty Start Date End Date Justen Gale MD [address] [address] PCP - General 10/09/17 Liu Jerez MD Consulting Physician Gastroenterology 07/28/17 [place] [address] [facility] [address] [place] [address] Consulting Physician Pulmonary Disease 08/03/17 Khris Arthur MD [address] [facility] [address] [place] [address] Medical Oncologist/Medical Technologist Medical Oncology 10/23/17 [place] [address] [facility] [address] [place] [address] Surgeon Orthopedic Surgery 10/23/17 [place] [address] [facility] [address] [place] [address] Consulting Physician Pain Management 10/23/17 [place] [address] [facility] [address] [place] [address] Referring Physician General Surgery 01/26/18 [place] [address] [facility] [address] [place] [address] Consulting Physician Neurology 01/26/18
--- OUTSIDE RECORDS SUMMARY | 2024-08-13 22:39 | XMS_ITS ---
Author Organization [facility] Address [address] [place] [address] Care Team Providers Care Body Masker Name Role Phone Liu Jerez MD Unavailable [phone] Albert Corbin MD Unavailable [phone] Justen Gale MD Primary Care Provider [phone] Khris Arthur MD Unavailable [phone] Ko Melendez MD Unavailable [phone] John Paul Moyer MD Unavailable Annel Rod MD Unavailable Anali MARSHALL MD, Carlos M. 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) use 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 inhibitors 10/17/2019 Thyroid [...] complication, without long-term current use of insulin ([facility]) 10/23/2017 Assessment & Plan (10/23/2017 2:06 [...] 10/13/2017 Assessment & Plan (05/22/2024 12:29 PM CERTIFIED PROFESSIONAL CONTROLLER): -Hx stage II, ER positive, HER2 negative [...] 08/01/2017 Assessment & Plan (05/22/2024 12:33 PM CERTIFIED PROFESSIONAL CONTROLLER): -Hx LUL -Hospital provided CPAP ordered History of DVT (deep vein thrombosis) 08/01/2017 History of pulmonary embolism 08/01/2017 Generalized weakness 07/27/2017 Dyspnea 07/27/2017 Unintentional weight loss 07/27/2017 Acute cystitis without hematuria 07/27/2017 Nausea and vomiting 07/26/2017 Overview (07/28/2017): Added automatically from request for surgery [id number] Pulmonary embolism 08/09/2016 Assessment & Plan (10/23/2017 2:05 AM CDT): On Rivaroxaban Lymphedema of left upper extremity 08/09/2016 Assessment & Plan (05/25/2024 7:53 AM CERTIFIED PROFESSIONAL CONTROLLER): S/p L axillary lymph node dissection 2014, [...] syndrome Assessment & Plan (05/22/2024 11:18 AM CERTIFIED PROFESSIONAL CONTROLLER): -continue home Requip 5mg nightly Pain of lower extremity 03/12/2013 Overview (07/29/2016): Leg pain Essential hypertension Assessment & Plan (05/23/2024 10:42 AM CERTIFIED PROFESSIONAL CONTROLLER): -Chart history of HTN but not on meds -BP elevated on admission, likely some pain contributing -Monitor closely once pain under adequate control, discussed following up with PCP for this Chronic anticoagulation Restless leg syndrome 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 Type 2 diabetes mellitus without complication Assessment & Plan (05/24/2024 1:39 PM CERTIFIED PROFESSIONAL CONTROLLER): -Last Ha1c 8.4 in 2023, repeat 8.7 [...] left female breast, unspecified estrogen receptor status (HCC)shelter (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
--- OUTSIDE RECORDS SUMMARY | 2024-08-13 22:39 | XMS_ITS | Encounter Summary ---
Author Organization [facility] Address [address] [place] [address] Phone Care Team Providers Care Marble Polisher Hand Name Role Phone Justen Gale MD Primary Care Provider [phone] David Roberts APRN, DIRECTOR OF BLOOD Unavailable [phone] Annel Rod MD Unavailable Reason for Visit * Reason Onset Date Comments Sore Throat 06/29/2020 Encounter Details Date Type Department Care Team (Late st Contact Info) Description 06/29/2020 Telephone [facility] [place] [address] Justen Gale MD #[address] [address] Sore Throat Social History Tobacco Use Types [...] COVID-19? No / Unsure 06/29/2020 8:43 AM CRACKING AND FANNING MACHINE OPERATOR documented as of this encounter Miscellaneous Notes * Telephone Encounter - aGil Lucero RN - 06/29/2020 3:53 PM CST Attempted to call mailbox is full. Pt does not need testing KING AND FANNING MACHINE OPERATOR * Telephone Encounter - Vince Hermosillo MD - 06/29/2020 3:13 PM CST No covid testing needed. If the er thought that it was warranted then they would have done this. KING AND FANNING MACHINE OPERATOR * Telephone Encounter - Marlys Sorensen RN - 06/29/2020 8:36 AM CST Patient calling. Patient is calling to schedule Hospital/ED/Prompt-Care follow up appointment. Hospital/ED/Prompt-Care Site: [facility] ED Records Requested: Yes Reason for Hospitalization/ED/Prompt-Care [...] f/up and yearly PAP appointments? Please advise. KING AND FANNING MACHINE OPERATOR documented in this encounter Plan of Treatment Upcoming Encounters Date Type Department Care Team (Late st Contact Info) Description 09/18/2024 2:45 PM CDT Office Visit [facility] - Endocrinology - [place] #2 [place] [address] Annel Rod MD #2 [facility] [address] [place] [address] 09/24/2024 2:00 PM CDT [facility] 1 [place] [address] Angelito Alegria, DISBURSEMENT CLERK, DIRECTOR OF BLOOD #2 [facility] [address] [place] [address] Discharge Disposition: Discharged to home or Selfcare documented as of this encounter Visit Diagnoses Not on filedocumented in this encounter Additional Health Concerns Infection Onset Date Last Indicated Resolved Time COVID - 19 08/01/2024 08/01/2024 08/01/2024 3:20 PM CDT Assessment Noted Time PHQ-9 Depression Total Score: 0 09/08/19 19 1:00 PM CDT documented as of this encounter Care Teams Marble Polisher Hand Relationship Specialty Start Date End Date Justen Gale MD #2 [facility] [address] [place] [address] PCP - General Family Medicine 10/17/17 David Roberts APRN, DIRECTOR OF BLOOD #2 [place] [address] Nurse Practitioner Advanced Practice Nurse 01/31/22 Annel Rod MD #2 [facility] [address] [place] [address] Consulting Physician Endocrinology 07/01/22 documented as of this encounter
--- OUTSIDE RECORDS SUMMARY | 2024-08-13 22:40 | XMS_ITS | Encounter Summary ---
Author Organization [facility] Address [address] [place] [address] Phone Care Team Providers Care Maple Products Supervisor Name Role Phone Justen Gale MD Primary Care Provider [phone] David Roberts APRN, COMMERCIAL LOAN UNDERWRITER Unavailable [phone] Annel Rod MD Unavailable Reason for Visit * Reason Onset Date Comments Breathing Problem 08/07/2024 Muscle Pain 08/07/2024 Encounter Details Date Type Department Care Team (Late st Contact Info) Description 08/07/2024 Nurse Triage [facility] [address] [place] [address] Justen Gale MD #[address] [address] Breathing Problem; Muscle Pain Social History Tobacco Use Types Packs/Day Years Used Date Smoking Tobacco: Never Smokeless Tobacco: Never Alcohol Use Standard Drinks/Week Comments No 0 (1 standard drink = 0.6 oz pur e alcohol) [facility] Utilities Answer Date Recorded In [...] you attend chur ch or sabianism services? More than 4 times per year [...] any time in the past 12 m [facility], were you homeless or living in a long term (including now)? No 08/06/2024 Education Answer Date [...] She reports this was discussed with the hotel front desk clerk and provider was to be notified in [...] Encouraged caller to bring cell phone and tack puller machine to contact EMS 911 if symptoms worsen [...] (e.g., disoriented, slurred speech) Protocols used: Breathing Sfttahgsro-E-PM * Telephone Encounter - Neha Tomlinson - 08/07/2024 1:30 PM CDT Symptoms: Altered Mental Status, Body Aches, Breathing Trouble Outcome: Warm transfer to an emergent RN NOW! Reason: Trouble walking The caller accepted this outcome. documented in this encounter Plan of Treatment Upcoming Encounters Date Type Department Care Team (Late st Contact Info) Description 09/18/2024 2:45 PM CDT Office Visit [facility] #2 [place] [address] Annel Rod MD #2 [facility] [address] [place] [address] 09/24/2024 2:00 PM CDT [facility] 1 [place] [address] Angelito Alegria APRN, COMMERCIAL LOAN UNDERWRITER #2 [facility] [address] [place] [address] Discharge Disposition: Discharged to home or Selfcare documented as of this encounter Visit Diagnoses Not on filedocumented in this encounter Additional Health Concerns Assessment Noted Time PHQ-9 Depression Total Score: 0 08/02/19 25 1:09 PM CDT documented as of this encounter Care Teams Maple Products Supervisor Relationship Specialty Start Date End Date Justen Gale MD #2 [facility] [address] [place] [address] PCP - General Family Medicine 10/17/17 David Roberts APRN, NETTA #2 [place] [address] Nurse Practitioner Advanced Practice Nurse 01/31/22 Annel Rod MD #2 [facility] [address] [place] [address] Consulting Physician Endocrinology 07/01/22 documented as of this encounter
--- OUTSIDE RECORDS SUMMARY | 2024-08-13 22:40 | XMS_ITS | Encounter Summary ---
Author Organization [facility] Address [address] [place] [address] Care Team Providers Care Water Safety Instructor Name Role Phone Justen Gale MD Primary Care Provider [phone] Reason for Visit * Reason Onset Date Comments ER UC Follow-up 08/13/2024 Encounter Details Date Type Department Care Team (Late st Contact Info) Description 08/13/2024 Telephone ER at [facility] [address] [place] [address] Jordana Abdul MD [address] [place], [place] [id number] ER UC Follow-up Social History Tobacco Use [...] care, and heating? Somewhat hard 05/16/2023 [facility] [place] of Occupat ional Health - Occupational Stress [...] in a penitentiary (including now)? No 05/16/2023 Comments No Sex and Gender Information Value Date Recorded Sex Assigned at Not on file Legal Sex Female 6:53 PM SURVEILLANCE TECHNICIAN Gender Identity Not on file Sexual [...] on filedocumented in this encounter Care Teams Water Safety Instructor Relationship Specialty Start Date End Date Justen Gale MD PCP - General 07/05/21 documented as of this encounter
--- OUTSIDE RECORDS SUMMARY | 2024-08-13 22:40 | XMS_ITS | Encounter Summary ---
Author Organization [facility] Address [address] [place] [address] Phone Care Team Providers Care Ob Scrub Tech Name Role Phone Justen Gale MD Primary Care Provider David Roberts APRN, DIRECTOR REGULATORY AFFAIRS Unavailable [phone] Annel Rod MD Unavailable Reason for Visit * Reason Comments Medication Refill Encounter Details Date Type Department Care Team (Late st Contact Info) Description 03/13/2021 Refill [facility] [address] [place] [address] Justen Gale MD #[address] [address] Medication Refill Social History Tobacco [...] COVID-19? No / Unsure 03/02/2021 5:05 PM PHYSICAL SECURITY MANAGER documented as of this encounter Plan of Treatment Upcoming Encounters Date Type Department Care Team (Late st Contact Info) Description 09/18/2024 2:45 PM CDT Office Visit [facility] - Endocrinology [facility] #2 [place] [address] Annel Rod MD #2 [facility] [address] [place] [address] 09/24/2024 2:00 PM CDT [facility] 1 [place] [address] Angelito Alegria, RAISE MINER, DIRECTOR REGULATORY AFFAIRS #2 [facility] [address] [place] [address] Discharge Disposition: Discharged to home or Selfcare documented as of this encounter Visit Diagnoses Not on filedocumented in this encounter Additional Health Concerns Infection Onset Date Last Indicated Resolved Time COVID - 19 08/01/2024 08/01/2024 08/01/2024 3:20 PM CDT Assessment Noted Time PHQ-9 Depression Total Score: 0 07/21/19 3:00 PM CDT documented as of this encounter Care Teams Ob Scrub Tech Relationship Specialty Start Date End Date Justen Gale MD #[address] [address] PCP - General Family Medicine 10/17/17 David Roberts APRN, DIRECTOR REGULATORY AFFAIRS #2 [place] [address] Nurse Practitioner Advanced Practice Nurse 01/31/22 Annel Rod MD #2 [place] [phone] Consulting Physician Endocrinology 07/01/22 documented as of this encounter
--- OUTSIDE RECORDS SUMMARY | 2024-08-13 22:40 | XMS_ITS | Encounter Summary ---
Author Organization [facility] Address [address] [place] [address] Phone Care Team Providers Care Network Development Coordinator Name Role Phone Justen Gale MD Primary Care Provider [phone] David Roberts APRN, DATA COMMUNICATIONS TECHNICIAN Unavailable [phone] Annel Rod MD Unavailable Reason for Visit * Reason Onset Date Comments Medication Refill 08/06/2020 Encounter Details Date Type Department Care Team (Late st Contact Info) Description 08/06/2020 Refill [facility] #2 [facility] [address] Justen Gale MD #[address] [address] Medication Refill Social History Tobacco Use Types [...] Outpatient Visits 2 weeks ago [facility] Pili Mueller APN, DATA COMMUNICATIONS TECHNICIAN 2 months ago Increased urinary frequency [facility] Pili Mueller APN, DATA COMMUNICATIONS TECHNICIAN 5 months ago Urinary frequency [facility] Pili Mueller APN, DATA COMMUNICATIONS TECHNICIAN 8 months ago Type 2 diabetes mellitus with diabetic polyneuropathy, with long- term current use of insulin (HCC) [facility] Pili Mueller APN, DATA COMMUNICATIONS TECHNICIAN 9 months ago [facility] Justen Urbano MD Upcoming Appointments Future Appointments In 6 days Pili Elkins APN, DATA COMMUNICATIONS TECHNICIAN [facility] TECHNICAL HEALTHCARE CONSULTANT - Recent and Past Visits Recent Visits Date Type Provider Dept 07/20/20 Office Visit Pili Elkins APN, DATA COMMUNICATIONS TECHNICIAN [facility] 06/05/20 Office Visit Pili Elkins APN, NETTA [facility] 02/17/20 Office Visit Pili Elkins APN, NETTA [facility] 12/03/19 Office Visit Pili Elkins APN, NETTA [facility] 11/05/19 Telemedicine Justen Gale MD [facility] 07/25/19 Telemedicine [facility] Show[facility] recent visits within past 460 [...] Description 09/18/2024 2:45 PM CDT Office Visit [facility] - Endocrinology - [place] #2 [place] [address] Annel Rod MD #[address] [address] 09/24/2024 2:00 PM CDT Appointment [facility] Cardiology Services 1 [place] [address] Angelito Alegria MACHINE BOSS, DATA COMMUNICATIONS TECHNICIAN #2 [facility] [address] [place] [address] Discharge Disposition: Discharged to home or Selfcare documented as of this encounter Visit Diagnoses Not on filedocumented in this encounter Additional Health Concerns Infection Onset Date Last Indicated Resolved Time COVID - 19 08/01/2024 08/01/2024 08/01/2024 3:20 PM CDT Assessment Noted Time PHQ-9 Depression Total Score: 0 07/21/19 3:00 PM CDT documented as of this encounter Care Teams Network Development Coordinator Relationship Specialty Start Date End Date Justen Gale MD #[address] [address] PCP - General Family Medicine 10/17/17 David Roberts APRN, DATA COMMUNICATIONS TECHNICIAN #2 [place] [address] Nurse Practitioner Advanced Practice Nurse 01/31/22 Annel Rod MD #[address] [address] Consulting Physician Endocrinology 07/01/22 documented as of this encounter
--- OUTSIDE RECORDS SUMMARY | 2024-08-13 22:40 | XMS_ITS | Encounter Summary ---
Author Organization [facility] Address [address] [place] [address] Phone Care Team Providers Care Adaptive Physical Educator Name Role Phone Justen aGle MD Primary Care Provider [phone] David Roberts APRN, CONVERTING SUPERVISOR Unavailable [phone] Annel Rod MD Unavailable Reason for Visit * Reason Comments Medication Refill Encounter Details Date Type Department Care Team (Late st Contact Info) Description 10/24/2022 Refill [facility] - Family Medicine [facility] #2 [place] [address] Pili Elkins APRN, CONVERTING SUPERVISOR #[address] [address] Medication Refill [...] Office Visit [facility] - Endocrinology [facility] #2 [place] [address] Annel Rod MD #[address] [address] 09/24/2024 2:00 PM CDT [facility] 1 [place] [address] Angelito Alegria, FUR STYLIST, CONVERTING SUPERVISOR #2 [facility] [address] [place] [address] Discharge Disposition: Discharged to home or Selfcare documented as of this encounter Visit Diagnoses Diagnosis Essential hypertension Unspecified essential hypertension documented in this encounter Additional Health Concerns Infection Onset Date Last Indicated Resolved Time COVID - 19 08/01/2024 08/01/2024 08/01/2024 3:20 PM CDT Assessment Noted Time PHQ-9 Depression Total Score: 0 09/17/19 23 11:00 AM CDT documented as of this encounter Care Teams Adaptive Physical Educator Relationship Specialty Start Date End Date Justen Gale MD #[address] [address] PCP - General Family Medicine 10/17/17 David Roberts FUR STYLIST, CONVERTING SUPERVISOR #2 [place] [address] Nurse Practitioner Advanced Practice Nurse 01/31/22 Annel Rod MD #[address] [address] Consulting Physician Endocrinology 07/01/22 documented as of this encounter
--- OUTSIDE RECORDS SUMMARY | 2024-08-13 22:40 | XMS_ITS | Encounter Summary ---
Author Organization [facility] Address [address] [place] [address] Phone Care Team Providers Care Sugar Reprocess Operator Head Name Role Phone Justen Gale MD Primary Care Provider David Roberts APRN, PARANORMAL INVESTIGATOR Unavailable [phone] Annel Rod MD Unavailable Reason for Visit * Reason Comments Medication Refill Encounter Details Date Type Department Care Team (Late st Contact Info) Description 02/07/2023 Refill [facility] - Family [facility] #2 [place] [address] Catrina Quiñonez MD #2 [place] [address] Medication Refill Social History Tobacco Use Types [...] 03/03/22 Office Visit Pili Elkins APRN, NETTA [facility] [place] Showing recent visits within past 365 [...] Visit [facility] - Endocrinology - [place] #2 [place] [address] Annel Rod MD #[address] [address] 09/24/2024 2:00 PM CDT Appointment [facility] Cardiology Services 1 [place] [address] Angelito Alegria, FAN INSTALLER, PARANORMAL INVESTIGATOR #[address] [address] Discharge Disposition: Discharged to home or Selfcare documented as of this encounter Visit Diagnoses Not on filedocumented in this encounter Additional Health Concerns Infection Onset Date Last Indicated Resolved Time COVID - 19 08/01/2024 08/01/2024 08/01/2024 3:20 PM CDT Assessment Noted Time PHQ-9 Depression Total Score: 8 01/18/20 23 2:24 PM CDT documented as of this encounter Care Teams Sugar Reprocess Operator Head Relationship Specialty Start Date End Date Justen Gale MD #[address] [address] PCP - General Family Medicine 10/17/17 David Roberts FAN INSTALLER, PARANORMAL INVESTIGATOR #2 [place] [address] Nurse Practitioner Advanced Practice Nurse 01/31/22 Annel Rod MD #[address] [address] Consulting Physician Endocrinology 07/01/22 documented as of this encounter
--- OUTSIDE RECORDS SUMMARY | 2024-08-13 22:40 | XMS_ITS | Encounter Summary ---
Author Organization [facility] Address [address] [place] [address] Phone Care Team Providers Care Tungsten Tender Name Role Phone Justen Gale MD Primary Care Provider [phone] David Roberts APRN, PRODUCE ASSISTANT Unavailable [phone] Annel Rod MD Unavailable Reason for Visit * Reason Comments Medication Refill Encounter Details Date Type Department Care Team (Late st Contact Info) Description 02/07/2023 Refill [facility] - Family [facility] #2 [place] [address] Pili Elkins APRN, PRODUCE ASSISTANT #[address] [address] Medication Refill Social History Tobacco [...] Office Visit [facility] - Endocrinology [facility] #2 [place] [address] Annel oRd MD #2 [facility] [address] [place] [address] 09/24/2024 2:00 PM CDT Appointment [facility] Cardiology Services 1 [place] [address] Angelito Alegria APRN, PRODUCE ASSISTANT #2 [facility] [address] [place] [address] Discharge Disposition: Discharged to home or Selfcare documented as of this encounter Visit Diagnoses Diagnosis Essential hypertension Unspecified essential hypertension documented in this encounter Additional Health Concerns Infection Onset Date Last Indicated Resolved Time COVID - 19 08/01/2024 08/01/2024 08/01/2024 3:20 PM CDT Assessment Noted Time PHQ-9 Depression Total Score: 8 01/18/20 2:24 PM CDT documented as of this encounter Care Teams Tungsten Tender Relationship Specialty Start Date End Date Justen Gale MD #2 [facility] [address] [place] [address] PCP - General Family Medicine 10/17/17 David Roberts APRN, PRODUCE ASSISTANT #2 [place] [address] Nurse Practitioner Advanced Practice Nurse 01/31/22 Annel Rod MD #2 [facility] [address] [place] [address] Consulting Physician Endocrinology 07/01/22 documented as of this encounter
--- OUTSIDE RECORDS SUMMARY | 2024-08-13 22:40 | XMS_ITS | Clinical Summary ---
Author Organization [facility] Address [address] [place] [address] Care Team Providers Care Racetrack Steward Name Role Phone Justen Gale MD Primary Care Provider [phone] Source Comments [facility] Affiliates and Associated Physician Practices is amultiple site organization consisting of ambulatory clinics and hospital sitesin [place], [place], [place] and [place]. This disclosure is being madepursuant to the Care Everywhere program and may not contain all information available regarding this patient. Last updated 18.[facility] Spoke Allergies Active Allergy Reactions Criticality Noted Date [...] Gluc Sensor (FreeStyle Eileen 2 Sensor Systm) [facility] APPLY 1 SENSOR AND WEAR FOR 14 [...] Care Team Description 08/13/2024 Telephone ER at [address] [place] [address] Jordana Abdul MD ER UC Follow-up 08/09/2024 6:46 PM CDT - 08/09/2024 9:35 PM CDT Emergency ER at [address] [address] Yasmin Matthew DO Shortness of breath; Strep [...] medical care, and heating? Somewhat hard 05/16/2023 [facility] - [...] on file Legal Sex Female 6:53 PM LINING BRUSHER Gender Identity Not on file Sexual Orientation [...] this topic Medical Devices Implanted Type Area Manager Massage Department Device Identifier Shelf Expiration Date Model / Serial / Lot Lead Nrstm 60cm Penta 3mm Pdl 16 Chnl Implanted:Qt y: 1 on 09/16/2021 by Maxi Gregg MD at [facility] Right: Spine Thoracic Advanced [employer] [id number] / / Description:CAMILO Slnt Dura Duraseal Pg Trilysine Amine 5 Implanted:Qt y: 1 on 09/16/2021 by Maxi Gregg MD at [facility] Right: Spine Thoracic Integra [employer] David [id number] / / Description:CAMILO Proclaim Plus 5 Implanted:Qt y: 1 on 02/16/2023 by Maxi Gregg MD at [facility] Left: Back Cardenas Spine [id number] 11/07/2024 3670 / [id number] / Explanted Type Area Manager Massage Department Device Identifier Shelf Expiration Date Model / Serial / Lot Gntr Nrstm 1.95inx2.19in Proclaim Elt Implanted:Qty: 1 on 09/16/2021 by Maxi Gregg MD at [facility] Explanted:Qty: 1 on 10/30/2021 by Maxi Gregg MD at [facility] Right: Spine Thoracic [facility] [...] 08/09/2024 8:46 PM CDT [facility] Specific [place] UA 1.014 1.005 - 1.030 08/09/2024 8:46 [...] 5 # /hpf 08/09/2024 8:46 PM CDT [facility] WBC UA 51-100(A) 0 - 5 # /hpf 08/09/2024 8:46 PM CDT [facility] Bacteria UA Trace(A) None Seen 08/09/2024 8:46 PM CDT [facility] Squamous Epithelial Cells None Seen 0 - 5 /hpf 08/09/2024 8:46 PM CDT [facility] Mucus UA 1+ /LPF 08/09/2024 8:46 PM CDT [facility] Urine URINE SPECIMEN OBTAINED BY CLEAN CATCH PROCEDURE / Unknown 08/09/2024 8:39 PM CDT 08/09/2024 8:39 PM CDT Narrative [facility] - 08/09/2024 8:46 PM CDT Yasmin Matthew DO LAB - URINALYSIS ORDERABLES Final Result Performing Organization Address City/State/[facility] Co de Phone Number [facility] [address] [place] [address] * (ABNORMAL) CULTURE URINE (08/09/2024 8:39 PM CDT) Pathologist [facility] Culture Urine 50,000-100,000 CFU/mL Escherichia coli(A) TERRANCE 08/12/2024 4:04 AM CDT [facility] Culture Urine 10,000-50,000 CFU/mL urogenital evelio TERRANCE 08/12/2024 4:04 AM CDT [facility] Urine URINE SPECIMEN OBTAINED BY CLEAN CATCH PROCEDURE / Unknown 08/09/2024 8:39 PM CDT 08/09/2024 8:39 PM CDT Narrative [facility] - 08/12/2024 4:04 AM CDT [...] LAB - MICROBIOLOGY ORDERABLE S Final Result [facility] [address] [facility] [place] [address], [facility] [phone] * SARS-COV-2 (COVID-19) FLU A/B RSV PCR RAPID (08/09/2024 7:40 PM CDT) [facility] COVID-19 PCR Not detected Not detected 08/10/19 8:24 PM CDT [facility] Influenza A PCR Not detected Not detected 08/09/2024 8:24 PM CDT [facility] Influenza B PCR Not detected Not detected 08/09/2024 8:24 PM CDT [facility] RSV PCR Not detected Not detected 08/09/2024 8:24 PM CDT [facility] Microbiology SPECIMEN FROM NASOPHARYNGEAL STRUCTURE / Unknown Collection / Unknown 08/09/2024 7:40 PM CDT 08/09/2024 7:40 PM CDT Narrative [facility] - 08/09/2024 8:24 PM CDT This [...] EUA assay are available upon request. [facility] - MICROBIOLOGY ORDERABLE S Final Result Performing Organization Address [facility] Co de Phone Number [facility] [address] [place] [address] * (ABNORMAL) STREP A SCREEN DIRECT W RFLX STREP A CULTURE (08/09/2024 7:40 PM CDT) [facility] Strep A Rapid Positive(A ) Negative 08/09/2024 7:53 PM CDT [facility] Microbiology ENTIRE THROAT (SURFACE REGION OF NECK) / Unknown Collection / Unknown 08/09/2024 7:40 PM CDT 08/09/2024 7:40 PM CDT Yasmin Vipul LAB - MICROBIOLOGY ORDERABLE S Final Result Performing Organization Address [facility] Co de Phone Number [facility] [address] [place] [address] * EKG 12-LEAD (08/09/2024 7:06 PM CDT) Ventricular Rate 86 BPM [facility] Atrial Rate 86 BPM [facility] P-R Interval 122 ms [facility] MUSE QRS Duration ms 86 ms [facility] Q-T Interval ms 370 ms [facility] QTC Calculation (Bezet) 442 ms [facility] Calculated R Hollister 8 degrees [facility] Calculated T Hollister 51 degrees [facility] Interpretation EKG NORMAL SINUS RHYTHM WITH SINUS ARRHYTHMIA SEPTAL INFARCT , AGE UNDETERMINED ABNORMAL ECG WHEN COMPARED WITH ECG OF 09-AUG-2024 13:34, SINUS RHYTHM HAS REPLACED ECTOPIC ATRIAL RHYTHM SEPTAL INFARCT IS NOW PRESENT Confirmed by Gil Perrin MD ([id number]) on 08/10/2024 9:03:52 AM [facility] 08/09/2024 7:06 PM CDT 08/10/2024 9:03 AM CDT Josué Bernal PA-C ECG ORDERABLES Edited Re sult - Final [facility] * TROPONIN-I HIGH SENSITIVE REFLEX 1HOUR (08/09/2024 3:29 PM CDT) [facility] Troponin I High Sensitive 5 <=14 ng/L 08/09/2024 4:50 PM CDT [facility] Delta Troponin I HS 08/09/2024 4:50 PM CDT [facility] Comment:Delta value intentio yissel not calculated. Baseline to 1 hour specimen collection interval exceeded. Blood BLOOD SPECIMEN / Unknown Venipuncture / Unknown 08/09/2024 3:29 PM CDT 08/09/2024 3:33 PM CDT Josué Bernal PA-C LAB - CHEMISTRY ORDERABLE S Final Result Performing Organization Address City/[facility]/ZIP Co de Phone Number [facility] [address] [place] [place] [phone] * XR CHEST 2VW (08/09/2024 1:59 PM [...] BASELINE + 1HR (08/09/2024 1:40 PM CDT) [facility] Troponin I High Sensitive 6 <=14 ng/L 08/09/2024 2:14 PM CDT [facility] Blood BLOOD SPECIMEN / Unknown Venipuncture / Unknown 08/09/2024 1:40 PM CDT 08/09/2024 1:43 PM CDT Josué Bernal PA-C LAB - CHEMISTRY ORDERABLE S Final Result [facility] [address] [place] [address] * (ABNORMAL) CBC W AUTO DIFFERENTIAL (08/09/2024 1:40 PM CDT) [facility] WBC 15.6(H) 4.0 - 10.7 x10E9/L 08/09/2024 1:47 PM CDT [facility] RBC Count 4.44 3.90 - 5.20 x10E12/L 08/09/2024 1:47 PM CDT [facility] Hemoglobin 13.0 11.9 - 15.8 g/dL 08/09/2024 1:47 [facility] Hematocrit 40.4 34.8 - 46.1 % 08/09/2024 1:47 PM [facility] MCV 91.0 80.0 - 98.0 fL 08/09/2024 1:47 PM CDT [facility] MCH 29.3 26.7 - 33.6 pg 08/09/2024 1:47 PM [facility] MCHC 32.2 31.7 - 36.3 g/dL 08/09/2024 1:47 PM [facility] RDW-CV 13.0 11.3 - 14.8 % 08/09/2024 1:47 PM [facility] Platelet Count 249 150 - 420 x10E9/L 08/09/2024 1:47 PM [facility] MPV 9.6 7.8 - 11.4 fL 08/09/2024 1:47 PM [facility] Neutrophil % 72.7 41.0 - 74.0 % 08/09/2024 1:47 PM CDT [facility] Lymphocyte % 18.0 17.0 - 47.0 % 08/09/2024 1:47 PM [facility] Monocyte % 7.5 3.0 - 11.0 % 08/09/2024 1:47 PM [facility] Eosinophil % 1.2 0.0 - 7.0 % 08/09/2024 1:47 PM CDT [facility] Basophil % 0.2 0.0 - 1.6 % 08/09/2024 1:47 PM [facility] Immature Granulocytes % 0.4 0.0 - 1.0 % 08/09/2024 1:47 PM [facility] Neutrophil Absolute 11.35(H) 1.60 - 7.50 x10E9/L 08/09/2024 1:47 PM CDT [facility] Lymphocyte Absolute 2.82 1.00 - 4.40 x10E9/L 08/09/2024 1:47 PM CDT [facility] Monocyte Absolute 1.18(H) 0.15 - 1.00 x10E9/L 08/09/2024 1:47 PM CDT [facility] Eosinophil Absolute 0.19 0.00 - 0.60 x10E9/L 08/09/2024 1:47 PM CDT [facility] Basophil Absolute 0.03 0.00 - 0.13 x10E9/L 08/09/2024 1:47 PM CDT [facility] Blood BLOOD SPECIMEN / Unknown Venipuncture / Unknown 08/09/2024 1:40 PM CDT 08/09/2024 1:43 PM CDT Josué Bernal PA-C LAB - HEMATOLOGY ORDERABL ES Final Result Performing Organization Address [facility] Co de Phone Number [facility] [address] [place] [phone] * B-TYPE NATRIURETIC PEPTIDE (08/09/2024 1:40 PM CDT) BNP 29 <=100 pg/mL 08/09/2024 2:11 PM CDT [facility] Blood BLOOD SPECIMEN / Unknown Venipuncture / Unknown 08/09/2024 1:40 PM CDT 08/09/2024 1:43 PM CDT Narrative [facility] - 08/09/2024 2:11 PM CDT A [...] ORDERABLE S Final Result Performing Organization Address [facility] Co de Phone Number [facility] [address] [place] [address] * (ABNORMAL) COMPREHENSIVE METABOLIC PANEL (08/09/2024 1:40 PM CDT) [facility] Signature Glucose 212(H) 70 - 99 mg/dL 08/09/2024 2:09 PM CDT [facility] Sodium 136 136 - 145 mmol/L 08/09/2024 2:09 PM CDT [facility] Potassium 3.9 3.5 - 5.1 mmol/L 08/09/2024 2:09 PM CDT [facility] Chloride 103 98 - 107 mmol/L 08/09/2024 2:09 PM T [facility] CO2 24 22 - 29 mmol/L 08/09/2024 2:09 PM [facility] Calcium 9.4 8.4 - 10.4 mg/dL 08/09/2024 2:09 PM [facility] Anion Gap 9 6 - 16 mmol/L 08/09/2024 2:09 PM [facility] BUN 19 7 - 26 mg/dL 08/09/2024 2:09 PM [facility] Creatinine 0.82 0.57 - 1.11 mg/dL 08/09/2024 2:09 PM [facility] Alkaline Phosphatase 68 40 - 150 U/L 08/09/2024 2:09 PM CDT [facility] ALT 22 6 - 57 U/L 08/09/2024 2:09 PM [facility] AST 23 10 - 48 U/L 08/09/2024 2:09 PM [facility] Protein Total 8.0 6.4 - 8.3 gm/dL 08/09/2024 2:09 PM [facility] Albumin 3.3(L) 3.4 - 5.0 gm/dL 08/09/2024 2:09 PM [facility] Bilirubin Total 0.9 0.2 - 1.2 mg/dL 08/09/2024 2:09 PM [facility] eGFR by CKD-EPI 78(L) >=90 mL/min/1.7 3 m2 08/09/2024 2:09 PM [facility] Blood BLOOD SPECIMEN / Unknown Venipuncture / Unknown 08/09/2024 1:40 PM CDT 08/09/2024 1:43 PM CDT Josué S Dolores MCKEON-C LAB - CHEMISTRY ORDERABLE S Final Result Performing Organization Address [facility] de Phone Number [facility] [address] [place] [phone] * (ABNORMAL) MAGNESIUM BLOOD (08/09/2024 1:40 PM CDT) [facility] Magnesium 1.5(L) 1.6 - 2.6 mg/dL 08/09/2024 2:09 PM CDT [facility] Blood BLOOD SPECIMEN / Unknown Venipuncture / Unknown 08/09/2024 1:40 PM CDT 08/09/2024 1:43 PM CDT Josué S Dolores MCKEON-C LAB - CHEMISTRY ORDERABLE S Final Result Performing Organization Address [facility] de Phone Number [facility] [address] [place] [phone] * CK BLOOD (08/09/2024 1:40 PM CDT) [facility] CK 107 29 - 168 U/L 08/09/2024 7:44 PM CDT [facility] Blood BLOOD SPECIMEN / Unknown Venipuncture / Unknown 08/09/2024 1:40 PM CDT 08/09/2024 1:43 PM CDT Yasmin Matthew DO LAB - CHEMISTRY ORDERABLES F inal Result Performing Organization Address [facility] Co de Phone Number [facility] [address] [place] [address] * HEPATITIS C AB SCREEN RFLX NAAT QUANT (02/21/2023 6:30 PM CDT) [facility] Hepatitis C Antibody Non-react hugh Non-reac tive 02/21/2023 7:32 PM CDT [facility] Comment:Hepatitis C Antibody screen indicates [...] ORDERABLES Fi nal Result Performing Organization Address City/[facility]/ZIP Co de Phone Number [facility] [address] [place] [phone], [place] [phone] * (ABNORMAL) HEMOGLOBIN A1C (12/25/2022 3:56 AM CDT) Hemoglobin A1c 8.6(H) <=5.6 % 12/25/2022 2:47 PM CDT [facility] Estimated Average Glucose 200 mg/dL 12/25/2022 2:47 PM CDT [facility] Comment: HbA1c Interpretation: Normal : < 5.7% Pre-diabetes: 5.7-6.4% Diabetes: Equal to or greater than 6.5% Test results diagnostic of diabetes should be repeated for confirmation. Treatment target values recommended by ADA and other clinical organizations should be used to evaluate metabolic control in patients. Reference: [place] [employer], Standards of Care in Diabetes -2020 In patients 70 years and older consider HbA1c target range of 7.0-7.5% (Reference: Travis tSorey, et al. JAMDA. 2012) The Sebia assay for the measurement of HbA1c is a National Glycohemoglobin Standardization Program (NGSP) certified method. Blood BLOOD SPECIMEN / Unknown Lab Venipuncture / Unknown 12/25/2022 3:56 AM CDT 12/25/2022 4:30 AM CDT us Jerrod Rodriguez MD LAB - CHEMISTRY ORDERA BLES Final Result Performing Organization Address City/[facility]/ZIP Co de Phone Number [facility] [address] [place] [phone], [place] [phone] from Last 3 Months or Most Recently [...] 3:37 AM 03/23/2023 7:14 PM Care Teams Racetrack Steward Relationship Specialty Start Date End Date Justen Gale MD PCP - General 07/05/21
--- OUTSIDE RECORDS SUMMARY | 2024-08-13 22:40 | XMS_ITS | Encounter Summary ---
Author Organization [facility] Address [address] [place] [address] Phone Care Team Providers Care Clinical Lab Clerk Name Role Phone Justen Gale MD Primary Care Provider [phone] David Roberts APRN, GUIDE CRUISE Unavailable [phone] Annel Rod MD Unavailable Reason for Visit * Reason Comments Medication Refill Encounter Details Date Type Department Care Team (Late st Contact Info) Description 08/30/2022 Refill [facility] [address] [place] [phone] Justen Gale MD [address] [address] Medication Refill Social History Tobacco Use Types [...] Office Visit Pili Elkins APRN, NETTA [facility] [place] 05/02/22 Office Visit [facility] [place] 03/03/22 Office Visit Pili Elkins APRN, NETTA [facility] [place] 01/03/22 Office Visit Dannielle Berg PAC [facility] [place] 12/07/21 Office Visit Pili Elkins APRN, [facility] [place] 11/09/21 Office Visit Pili Elkins APRN, NETTA [facility] [place] 10/08/21 Office Visit Angelito Alegria APRN, NETTA [facility] [place] 08/30/21 [facility] Visit [facility] Showing recent visits within past 365 days [...] Visit [facility] - [facility]ocr[facility]ology - [place] [address] [place] [address] Annel Rod MD #[address] [address] 09/24/2024 2:00 PM CDT Appointment [facility] Services [address] [place] [address] Angelito Alegria, MANAGER INFORMATION, GUIDE CRUISE [address] [address] Discharge Disposition: Discharged to home or Selfcare documented as of this encounter Visit Diagnoses Not on filedocumented in this encounter Additional Health Concerns Infection Onset Date Last Indicated Resolved Time COVID - 19 08/01/2024 08/01/2024 08/01/2024 3:20 PM CDT Assessment Noted Time PHQ-9 Depression Total Score: 0 07/21/19 3:00 PM CDT documented as of this encounter Care Teams Clinical Lab Clerk Relationship Specialty Start Date End Date Justen Gale MD [address] [address] PCP - General Family Medicine 10/17/17 David Roberts, MANAGER INFORMATION, GUIDE CRUISE [address] [place] [address] Nurse Practitioner Advanced Practice Nurse 01/31/22 Annel Rod MD #[address] [address] Consulting Physician Endocrinology 07/01/22 documented as of this encounter
--- OUTSIDE RECORDS SUMMARY | 2024-08-13 22:40 | XMS_ITS | Encounter Summary ---
Author Organization [facility] Address [address] [place] [address] Phone Care Team Providers Care Tariff Expert Name Role Phone Justen Gale MD Primary Care Provider [phone] David Roberts APRN, SHOE PARTS MOLDER Unavailable [phone] Annel Rod MD Unavailable Reason for Visit * Reason Comments Medication Refill Encounter Details Date Type Department Care Team (Late st Contact Info) Description 07/06/2023 Refill [facility] - Family [facility] [address] [place] [phone] Justen Gale MD #[address] [address] Medication Refill Social History Tobacco Use Types [...] Dept 06/27/23 Office Visit Justen Gale MD [facility] [place] 01/17/23 Office Visit Catrina Quiñonez MD [facility] [place] Showing recent visits within past [...] Description 09/18/2024 2:45 PM CDT Office Visit [facility] - Endocrinology - [place] [address] [place] [address] Annel Rod MD [address] [address] 09/24/2024 2:00 PM CDT Appointment [facility] Cardiology Services [address] [place] [address] Angelito Alegria, INFORMATION TECHNOLOGY ADVISOR, SHOE PARTS MOLDER [address]2 [facility] [address] [place] [address] Discharge Disposition: Discharged to home or Selfcare documented as of this encounter Visit Diagnoses Not on filedocumented in this encounter Additional Health Concerns Infection Onset Date Last Indicated Resolved Time COVID - 19 08/01/2024 08/01/2024 08/01/2024 3:20 PM CDT Assessment Noted Time PHQ-9 Depression Total Score: 8 01/18/20 23 2:24 PM CDT documented as of this encounter Care Teams Tariff Expert Relationship Specialty Start Date End Date Justen Gale MD #[address] [address] PCP - General Family Medicine 10/17/17 Daivd Roberts APRN, SHOE PARTS MOLDER [address] [place] [address] Nurse Practitioner Advanced Practice Nurse 01/31/22 Annel Rod MD #[address] [phone] Consulting Physician Endocrinology 07/01/22 documented as of this encounter
--- OUTSIDE RECORDS SUMMARY | 2024-08-13 22:40 | XMS_ITS | Encounter Summary ---
Author Organization [facility] Address [address] [place] [address] Care Team Providers Care Platform Material Handling Supervisor Name Role Phone Meena Bansal MD Unavailable [phone] Justen Gale MD Primary Care Provider [phone] Encounter Details Date Type Department Care Team (Latest Contact Info) Description 08/12/2024 Travel Social History Tobacco Use Types Packs/Day Years Used Date Smoking Tobacco: Former Cigarettes 0.3 2 1 05/23/1974 - 03/23/1977 Smokeless Tobacco: Never Alcohol Use Standard Drinks/Week Comments No 0 (1 standard drink = 0.6 oz pur e alcohol) [facility] Utilities Answer Date Recorded In the past 12 months has e [employer], gas, oil, or water [employer] threatened to shut off services in your [...] Sexual Orientation Straight 03/18/2018 3: 01 AM SCREENPLAY WRITER documented as of this encounter Functional Status [...] PM CDT Sumaya Betts RN Active * Sully Suicide Severity Rating Scale (Screener/Recent Self-Report) Question [...] on filedocumented in this encounter Care Teams Platform Material Handling Supervisor Relationship Specialty Start Date End Date [facility] [address] [place] [address] PCP - General FAMILY PRACTICE 08/20/17 [facility] [address] [place] [address] Bancroft Inspector Packer CARDIOVASCULAR DISEASE 04/24/16 documented as of this encounter
--- OUTSIDE RECORDS SUMMARY | 2024-08-13 22:40 | XMS_ITS | Clinical Summary ---
Author Organization [facility] Address [facility] [place] [address] Care Team Providers Care Speech And Hearing Director Name Role Phone Meena Bansal MD Unavailable [phone] Justne Gale MD Primary Care Provider [phone] Allergies Active Allergy Reactions Criticality Noted Date [...] reflux disease 09/05/2020 Malignant tumor of breast ([facility]/HCC [facility]) 08/22 Knee pain 09/05/2020 Other chronic pain [...] 10:02 PM CDT): Chronic. Controlled. -Continue home norwi. Thyroid nodule 08/07/2018 Overview (09/05/2020): Last Assessment [...] 03/18/2018 Assessment & Plan (03/18/2018 2:55 AM GIN CLERK): Acute, patient reported as epigastric pain however may be atypical presentation. Troponins negative x2. Also in differential is GERD, PUD - Admit to observation -Follow-up troponins -Monitor vitals -N.p.o. at midnight - Stress echo in a.m. - Consider cardiology consult based on results of stress test -Begin Protonix Epigastric pain 03/18/2018 Assessment & Plan (03/18/2018 5:39 AM GIN CLERK): Acute, non radiating, worsens with lying down, [...] Speech impairment 01/30/2018 CVA (cerebral vascular accident) ([facility] HHS/ C) 01/24/2018 Neck pain on right side 12/01/2017 Anxiety and depression 11/12/2017 Chronic anticoagulation 11/09/2017 Constipation 11/09/2017 Uncontrolled type 2 diabetes mellitus with hyperglycemia, with long-term current use of insulin ([facility]) 11/06/2017 long term care social worker (current) use 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 inhibitors 10/23/2017 Lumbosacral [...] upper- 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 ([facility]) 10/17/2017 Assessment & Plan (08/31/2018 12:24 AM CDT): S/p masectomy. -continue exemestane Acute deep vein thrombosis ( DVT) of proximal vein of right lower extremity ([facility]) 10/17/2017 Dysuria 10/17/2017 Hyperthyroidism 10/17/2017 Cancer of overlapping sites of left female breast ([facility]) 10/13/2017 Syncope 09/29/2017 High blood pressure 08/22/2017 Overview (09/05/2020): Last Assessment & Plan: On lisinopril Last Assessment & Plan: On lisinopril Assessment & Plan (08/30/2018 9:57 PM CDT): Chronic. Controlled. -continue home medications Assessment & Plan (03/18/2018 2:51 AM GIN CLERK): Chronic, BPs currently 127/78 - To new home meds Morbid obesity with BMI of 50.0-59.9, adult 0504/2017 Sepsis ([facility]) 08/22/2017 Type 2 diabetes mellitus ([facility]) 08/22 Overview (09/05/2020): Last Assessment & Plan: Hold janument. Start on SSI and accucheks Assessment & Plan (08/30/2018 10:01 PM CDT): Chronic. Controlled. -continue home insulin regimen of lantus 50 units q am -lispro 20 units with breakfast and lunch. 22 units with dinner. Assessment & Plan (03/18/2018 2:53 AM GIN CLERK): Chronic, patient reports medical compliance with 50 units of Lantus daily and 15 units of Humalog before meals. No recent HbA1c - Monitor POC glucose -[place] home regimen - Consider sliding scale insulin -Follow-up HbA1c Bronchitis 08/20/2017 LUL (obstructive sleep apnea) 08/01/2017 Assessment & Plan (03/18/2018 2:54 AM GIN CLERK): Chronic, on CPAP at home - Continue home CPAP History of DVT (deep vein thrombosis) 08/01/2017 Assessment & Plan (03/18/2018 2:54 AM GIN CLERK): Chronic - Continue home Xarelto Chest pressure 08/01/2017 Diet-controlled diabetes mellitus ([facility]/H CC) 08/01/2017 History of pulmonary embolism 08/01/2017 Hyponatremia 08/01/2017 Positive blood culture 08/01/2017 Acute pharyngitis 07/27/2017 Generalized weakness 07/27/2017 Nausea and vomiting 07/26/2017 Overview (09/05/2020): Overview: Overview: Added automatically from request for surgery [id number] Overview: Added automatically from request for surgery [id number] Added automatically from request for surgery [id number] Neuropathy 07/05/2017 History of breast cancer 02/06/2017 Pulmonary embolism ([facility]/HCC) 08/09/2016 Overview (09/05/2020): Last Assessment [...] syndrome Assessment & Plan (03/18/2018 2:54 AM GIN CLERK): Chronic -Continue home ropinirole Pain of lower extremity 03/12/2013 Overview (09/05/2020): Leg pain Encounters Date Type Department Care Team Description 08/12/2024 4:41 PM CDT - 08/12/2024 7:52 PM CDT Emergency [facility] [place] [address] Marvin Brewer MD Urinary Symptoms Discharge Disposition: [...] drink = 0.6 oz pur e alcohol) [facility] Utilities Answer Date Recorded In the past 12 months has [employer] gas, oil, or water [employer] threatened to shut off services in your [...] were you homeless or living in a correction (including now)? No 10/13/2023 Comments No Sex and Gender Information Value Date Recorded Sex Assigned at Female 09/06/2020 12:50 AM CDT Legal Sex Female 10:47 AM CDT Gender Identity Female 09/06/2020 12:50 AM CDT Sexual Orientation Straight 03/18/2018 3: 01 AM GIN CLERK Last Filed Vital Signs Vital Sign Reading [...] 08/12/2024 5:13 PM CDT [facility]ative [facility] - 08/12/2024 10:49 PM CDT [facility] Test Date: 2024-08-12 Pat Name: MOHSEN SALAZAR Department: 41 Room: [facility] Gender: Female Clinical Liaison: [id number] : 1955 Requested By: MARVIN BREWER Order Number: [id number] Reading MD: Meena Bansal Measurements Intervals [place] Rate: 82 P: -76 OR: 99 QRS: 30 QRSD: 86 T: 65 QT: 403 QTc: 472 Interpretive Statements JUNCTIONAL RHYTHM ABNORMAL RHYTHM ECG Compared to ECG 10/13/2023 01:02:35 Junctional rhythm now present Sinus rhythm no longer present Incomplete right bundle-branch block no longer present Myocardial infarct finding no longer present Procedure Note Meena Bansal MD - 08/12/2024 [facility] [address] [facility] Test Date: 2024-08-12 Pat Name: MOHSEN SALAZAR Department: 41 Room: [facility] Gender: Female Clinical Liaison: [id number] : 1955 Requested By: MARVIN BREWER Order Number: [id number] Reading MD: Meena Bansal Measurements Intervals [place] Rate: 82 P: -76 OR: 99 QRS: 30 QRSD: 86 T: 65 QT: 403 QTc: 472 Interpretive Statements JUNCTIONAL RHYTHM ABNORMAL RHYTHM ECG Compared to ECG 10/13/2023 01:02:35 Junctional rhythm now present Sinus rhythm no longer present Incomplete right bundle-branch block no longer present Myocardial infarct finding no longer present us Marvin Brewer MD ECG ORDERABLES Final Result [facility] ([facility]) RAD * (ABNORMAL) COMPREHENSIVE METABOLIC PANEL (08/12/2024 4:49 PM CDT) GLUCOSE 293(H) 70 - 99 MG/DL 08/12/2024 5:33 PM CDT [facility] BUN 17 7 - 18 MG/DL 08/12/2024 5:33 PM CDT [facility] CREATININE S/P/B 0.84 0.55 - 1.02 MG/DL 08/12/2024 5:33 PM CDT [facility] SODIUM S/P/B 137 136 - 145 MMOL/L 08/12/2024 5:33 PM CDT [facility] POTASSIUM S/P/B 4.0 3.5 - 5.1 MMOL/L 08/12/2024 5:33 PM CDT [facility] CHLORIDE S/P/B 103 97 - 115 MMOL/L 08/12/2024 5:33 PM CDT [facility] CO2 27.7 21 - 32 MMOL/L 08/12/2024 5:33 PM CDT [facility] CALCIUM S/P/B 9.2 8.5 - 10.1 MG/DL 08/12/2024 5:33 PM CDT [facility] BILIRUBIN TOTAL S/P/B 0.4 0.2 - 1.2 MG/DL 08/12/2024 5:33 PM CDT [facility] Comment: THIS ASSAY IS NOT RECOMMENDED FOR PATIENTS UNDERGOING TREATMENT WITH ELTROMBOPAG DUE TO THE POTENTIAL FOR FALSELY ELEVATED RESULTS. TOTAL PROTEIN S/P/B 8.1 6.4 - 8.2 G/DL 08/12/2024 5:33 PM CDT [facility] ALBUMIN S/P/B 3.2(L) 3.4 - 5.0 G/DL 08/12/2024 5:33 PM CDT [facility] AST 20 15 - 37 U/L 08/12/2024 5:33 PM T [facility] ALT 29 14 - 55 U/L 08/12/2024 5:33 PM T [facility] ALKALINE PHOSPHATASE S/P/B 83 50 - 136 U/L 08/12/2024 5:33 PM T [facility] ANION GAP 6.3 2 - 10 MMOL/L 08/12/2024 5:33 PM T [facility] BUN CREATININE RATIO 20.3 6 - 26 08/12/2024 5:33 PM T [facility] A/G RATIO 0.7(L) 1.0 - 2.0 RATIO 08/12/2024 5:33 PM T [facility] GFR ESTIMATE 76(L) >90 ML/MIN/1.7 3 M2 08/12/2024 5:33 PM T [facility] Comment: NOTE: eGFR is not calculated for patients <18 years of age or gender unknown. This is an estimated GFR calculation using the new CKD EPI creatinine equation without race and so does not require a correction factor for race. This estimated GFR should not be used for calculating drug doses. 08/12/2024 4:49 PM CDT [facility] Final Result [facility] [address] [place] [address], [place] [phone] * (ABNORMAL) CBC W/DIFF AUTOMATED (08/12/2024 4:49 PM CDT) WBC 12.17(H) 4.5 - 11.0 x10'3/uL 08/12/2024 5:00 PM CDT [facility] RBC 4.58 4.20 - 5.40 x10'6/uL 08/12/2024 5:00 PM CDT [facility] HGB 13.3 12.0 - 16.0 G/DL 08/12/2024 5:00 PM CDT [facility] HCT 42.6 38.0 - 48.0 % 08/12/2024 5:00 PM CDT [facility] MCV 93.0 81.0 - 99.0 FL 08/12/2024 5:00 PM CDT [facility] MCH 29.0 27.0 - 31.0 PG 08/12/2024 5:00 PM CDT [facility] MCHC 31.2(L) 32.0 - 36.0 G/DL 08/12/2024 5:00 PM CDT [facility] RDW 13.3 11.5 - 14.5 % 08/12/2024 5:00 PM CDT [facility] PLT 290 130 - 400 x10'3/uL 08/12/2024 5:00 PM CDT [facility] MPV 9.8 9.3 - 12.2 FL 08/12/2024 5:00 PM CDT [facility] DIFFERENTIAL TYPE AUTOMATED DIFFERENTIAL 08/12/2024 5:00 PM CDT [facility] NEUTROPHILS % 67.7 % 08/12/2024 5:00 PM CDT [facility] LYMPHOCYTES % 21.2 % 08/12/2024 5:00 PM CDT [facility] MONOCYTES % 8.0 % 08/12/2024 5:00 PM CDT [facility] EOSINOPHILS 2.3 % 08/12/2024 5:00 PM CDT [facility] BASOPHILS 0.3 % 08/12/2024 5:00 PM CDT [facility] IMMATURE GRANS % 0.5 % 08/13/19 5:00 PM CDT [facility] ABS. NEUTROPHILS 8.24(H) 1.80 - 7.70 x10'3/uL 08/12/2024 5:00 PM CDT [facility] ABS. LYMPHOCYTES 2.58 1.00 - 4.80 x10'3/uL 08/12/2024 5:00 PM CDT [facility] ABS. MONOCYTES 0.97(H) 0.24 - 0.86 x10'3/uL 08/12/2024 5:00 PM CDT [facility] ABS. EOSINOPHILS 0.28 0.04 - 0.36 x10'3/uL 08/12/2024 5:00 PM CDT [facility] ABS. BASOPHILS 0.04 0.01 - 0.08 x10'3/uL 08/12/2024 5:00 PM CDT [facility] ABS. IMMATURE GRANULOCYTES 0.06 0.00 - 0.49 x10'3/uL 08/12/2024 5:00 PM CDT [facility] 08/12/2024 4:49 PM CDT us [facility] Final Result [facility] [address] [place] [address], [place] [phone] * (ABNORMAL) URINALYSIS (08/12/2024 4:48 PM CDT) SPECIMEN TYPE URINE CLEAN CATCH 08/12/2024 4:48 PM CDT [facility] COLOR (U) LIGHT YELLOW 08/12/2024 5:07 PM CDT [facility] TRANSPARENCY CLEAR 08/12/2024 5:07 PM CDT [facility] SPECIFIC GRAVITY (U) 1.016 1.001 - 1.030 08/12/2024 5:07 PM CDT [facility] U PH 6.0 5.0 - 9.0 08/12/2024 5:07 PM CDT [facility] LEUKOCYTES (U) NEGATIVE NEGATIVE 08/12/2024 5:07 PM CDT [facility] NITRITES NEGATIVE NEGATIVE 08/12/2024 5:07 PM CDT [facility] PROTEIN RANDOM (U) NEGATIVE <30 MG/DL 08/12/2024 5:07 PM CDT [facility] GLUCOSE (U) 1000(A) NORMAL MG/DL 08/12/2024 5:07 PM CDT [facility] KETONES MG/DL (U) NEGATIVE NEGATIVE MG/DL 08/12/2024 5:07 PM CDT [facility] UROBILINOGEN NORMAL NORMAL MG/DL 08/12/2024 5:07 PM CDT [facility] BILIRUBIN (U) NEGATIVE NEGATIVE MG/DL 08/12/2024 5:07 PM CDT [facility] BLOOD (U) NEGATIVE NEGATIVE 08/12/2024 5:07 PM CDT [facility] URINE SPECIMEN OBTAINED BY CLEAN CATCH PROCEDURE / Unknown 08/12/2024 4:48 PM CDT [facility] URINE ORDERABLES Final Result [facility] [address] [place] [address], [place] [phone] * LIPID PANEL (10/14/2023 3:40 AM CDT) CHOLESTEROL 164 <200 MG/DL 10/14/2023 4:31 AM CDT [facility] TRIGLYCERIDES 114 <150 MG/DL 10/14/2023 4:31 AM CDT [facility] HDL 46 >40.0 MG/DL 10/14/2023 4:31 AM T [facility] LDL (CALCULATED) 95 <100 MG/DL 10/14/19 4:31 AM CDT [facility] NON HDL CHOLESTEROL 118 <130 MG/DL 10/13 4:31 AM CDT [facility] CHOL/HDL RATIO 3.6 0.0 - 4.5 10/14/2023 4:31 AM CDT [facility] VLDL CALCULATION 23 5 - 55 MG/DL 10/14/2023 4:31 AM CDT [facility] LIPID INTERPRETATION 10/14/2023 4:31 AM T [facility] Comment: NIH CONCENSUS REPORT RECOMMENDATIONS: ADULT CHILD LOW RISK: CHOLESTEROL <200 <170 TRIGLYCERIDE <150 --- HDL >=60 --- LDL <100 <110 BORDERLINE: CHOLESTEROL 200-239 170-199 TRIGLYCERIDE 150-199 --- HDL 40-59 --- LDL 100-159 110-129 HIGH RISK: CHOLESTEROL >=240 >=200 TRIGLYCERIDE >=200 --- HDL <40 --- LDL >=160 >=130 10/14/2023 3:40 AM CDT Peggy Bland MD LABORATORY Final Result [facility] [address] [place] [address], [place] [phone] from Last 3 Months or Most Recently Relevant to Health [place] [id number] [facility] [place] [id number] [facility] Advance Directives * Full Code (Latest [...] 2:42 AM 03/18/2018 4:50 PM Care Teams Speech And Hearing Director Relationship Specialty Start Date End Date Justen Gale MD [address] [place] [address] PCP - General FAMILY PRACTICE 08/20/17 Meena Bansal MD [address] [place] [address]/Medical Interpreter CARDIOVASCULAR DISEASE 04/24/16
--- OUTSIDE RECORDS SUMMARY | 2024-08-13 22:40 | XMS_ITS | Encounter Summary ---
Author Organization [facility] Address [address] [place] [address] Phone Care Team Providers Care Shot Bagger Name Role Phone Justen Gale MD Primary Care Provider [phone] David Roberts APRN, ACCOUNTING GENERALIST Unavailable [phone] Annel Rod MD Unavailable Reason for Visit * Reason Comments Medication Refill Encounter Details Date Type Department Care Team (Late st Contact Info) Description 07/14/2022 Refill [facility] - Family Medicine [facility] [address] [place] [phone] Justen Gale MD [address] [address] Medication Refill Social History Tobacco Use Types [...] Visit [facility] - Endocrinology - [place] [address] [place] [address] Annel Rod MD #2 [facility] [address] [place] [address] 09/24/2024 2:00 PM CDT [facility] [address] [place] [address] Angelito Alegria APRN, ACCOUNTING GENERALIST #2 [facility] [address] [place] [address] Discharge Disposition: Discharged to home or Selfcare documented as of this encounter Visit Diagnoses Not on filedocumented in this encounter Additional Health Concerns Infection Onset Date Last Indicated Resolved Time COVID - 19 08/01/2024 08/01/2024 08/01/2024 3:20 PM CDT Assessment Noted Time PHQ-9 Depression Total Score: 0 07/21/19 3:00 PM CDT documented as of this encounter Care Teams Shot Bagger Relationship Specialty Start Date End Date Justen Gale MD #2 [facility] [address] [place] [address] PCP - General Family Medicine 10/17/17 David Roberts, BUCKET TURNER, ACCOUNTING GENERALIST [address] [place] [address] Nurse Practitioner Advanced Practice Nurse 01/31/22 Annel Rod MD #2 [facility] [address] [place] [address] Consulting Physician Endocrinology 07/01/22 documented as of this encounter
--- OUTSIDE RECORDS SUMMARY | 2024-08-13 22:40 | XMS_ITS | Encounter Summary ---
Author Organization [facility] Address [address] [place] [address] Phone Care Team Providers Care Mohs Surgeon Name Role Phone Justen Gale MD Primary Care Provider [phone] David Roberts APRN, COMPANION CAREGIVER Unavailable [phone] Annel Rod MD Unavailable Reason for Visit * Reason Onset Date Comments High Blood Sugar 08/13/2024 Encounter Details Date Type Department Care Team (Late st Contact Info) Description 08/13/2024 [facility] [address] [place] [address] Justen Gale MD #[address] [address] High Blood Sugar Social History Tobacco Use Types Packs/Day Years Used Date Smoking Tobacco: Never Smokeless Tobacco: Never Alcohol Use Standard Drinks/Week Comments No 0 (1 standard drink = 0.6 oz pur e alcohol) [facility] Utilities Answer Date Recorded In the [...] How often do you attend chur or orthodoxy services? More than 4 times per year [...] Total Score - Questions 1-9 0 07/23 [facility] of Occupat ional Health - Occupational Stress [...] in the past 12 m [facility], were you homeless or living [...] Visit [facility] - [facility]ology - [place] [address] [place] [address] Annel Rod MD #[address] [address] 09/24/2024 2:00 PM CDT [facility] [address] [place] [address] Angelito Alegria APRN, COMPANION CAREGIVER #[address] [address] Discharge Disposition: Discharged to home or Selfcare documented as of this encounter Visit Diagnoses Not on filedocumented in this encounter Additional Health Concerns Assessment Noted Time PHQ-9 Depression Total Score: 0 08/02/19 25 1:09 PM CDT documented as of this encounter Care Teams Mohs Surgeon Relationship Specialty Start Date End Date Justen Gale MD #[address] [address] PCP - General Family Medicine 10/17/17 David Roberts APRN, NETTA [address] [place], [place] [id number] Nurse Practitioner Advanced Practice Nurse 01/31/22 Annel Rod MD [facility] [address] Consulting Physician Endocrinology 07/01/22 documented as of this encounter
--- OUTSIDE RECORDS SUMMARY | 2024-08-13 22:40 | XMS_ITS | Encounter Summary ---
Author Organization [facility] Address [address] [place] [address] Phone Care Team Providers Care Rough Rice Tender Name Role Phone Justen Gale MD Primary Care Provider [phone] David Roberts APRN, INTERNATIONAL FREIGHT FORWARDER Unavailable [phone] Annel Rod MD Unavailable Reason for Visit * Reason Onset Date Comments Results 08/02/2024 Encounter Details Date Type Department Care Team (Late st Contact Info) Description 08/02/2024 Telephone [facility] [address] [place] [address] Justen aGle MD #[address] [address] Results Social History Tobacco Use Types Packs/Day Years Used Date Smoking Tobacco: Never Smokeless Tobacco: Never Alcohol Use Standard Drinks/Week Comments No 0 (1 standard drink = 0.6 oz pur e alcohol) [facility] Utilities Answer Date Recorded In the past [...] How often do you attend chur or holiness services? More than 4 times per year [...] Total Score - Questions 1-9 0 07/23 [facility] of Occupat ional Health - Occupational [...] any time in the past 12 m [facility], were you homeless or living in a halfway (including now)? No 08/06/2024 Education Answer Date [...] Visit [facility] - [facility] - [place] [address] [place] [address] Annel Rod MD #[address] [address] 09/24/2024 2:00 PM CDT [facility] [address] [place] [address] Angelito Alegria APRN, INTERNATIONAL FREIGHT FORWARDER #[address] [address] Discharge Disposition: Discharged to home or Selfcare documented as of this encounter Visit Diagnoses Not on filedocumented in this encounter Additional Health Concerns Assessment Noted Time PHQ-9 Depression Total Score: 0 08/02/19 25 1:09 PM CDT documented as of this encounter Care Teams Rough Rice Tender Relationship Specialty Start Date End Date Justen Gale MD #[address] [address] PCP - General Family Medicine 10/17/17 David Roberts APRN, INTERNATIONAL FREIGHT FORWARDER [address] [place] [address] Nurse Practitioner Advanced Practice Nurse 01/31/22 Annel Rod MD #[address] [address] Consulting Physician Endocrinology 07/01/22 documented as of this encounter
--- OUTSIDE RECORDS SUMMARY | 2024-08-13 22:40 | XMS_ITS | Encounter Summary ---
Author Organization [facility] Address [address] [place] [id number] Care Team Providers Care Post Graduate Intern Name Role Phone Meena Bansal MD Unavailable [phone] Justen Gale MD Primary Care Provider [phone] Reason for Visit * Reason Comments Urinary Symptoms Encounter Details Date Type Department Care Team (Late st Contact Info) Description 08/12/2024 4:41 PM CDT - 08/12/2024 7:52 PM CDT Emergency [facility] Emergency Room [place], [place] [id number] Marvin Brewer MD [address] [place] [id number] Urinary Symptoms Discharge Disposition: Home or Self Care (Routine Discharge) Social History Tobacco Use Types Packs/Day Years Used Date Smoking Tobacco: Former Cigarettes 0.3 2 1 05/23/1974 - 03/23/1977 Smokeless Tobacco: Never Alcohol Use Standard Drinks/Week Comments No 0 (1 standard drink = 0.6 oz pur e alcohol) [facility] Utilities Answer Date Recorded In the [...] any time in the past 12 m [facility], were you homeless or living in a prison (including now)? 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 Please access [email or web address] to see your work-up and my note. [...] through Care Everywhere. * Fatigue Discharge Instructions (Danish) documented in this encounter Medications at Time of Discharge albuterol sulfate HFA 108 (90 Base) MCG/ACT inhaler Inhale 2 puffs into the lungs every 4 (four) hours as needed for Wheezing or Shortness of breath. 8 g 1 amoxicillin (AMOXIL) 500 MG capsule Take 1 capsule (500 mg total) by mouth 3 (three) times daily for 5 days. 15 capsule 5 08/18/19 25 exemestane 25 MG tablet Take 1 tablet [...] DC instructions, but requests to speak with feed grinder prior to DC re: provider care. * [...] encounter of 08/12/24 ECG [address] 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: [id number] : 1955 Requested By: MARVIN BREWER Order Number: [id number] Reading MD: Measurements Intervals [place] Rate: 82 P: -76 VT: 99 QRS: 30 QRSD: 86 T: 65 [...] pain Blood clot in vein Breast cancer ([facility] HHS/HCC) Cancer ([facility] HHS/HCC) Diabetes mellitus ([facility] HHS/[facility]) Disease of thyroid gland DVT (deep venous thrombosis) ([facility] HHS/HCC) Hypertension Kidney stones Neuropathy PE (pulmonary thromboembolism) ([facility] HHS/[facility]) Restless leg syndrome Spinal headache Has Bulging [...] ([facility]) RAD - 08/12/2024 10:[address] 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: [id number] : 1955 Requested By: MARVIN BREWER Order Number: [id number] Reading : Meena Bansal Measurements Intervals [place] Rate: 82 P: -76 VT: 99 QRS: 30 QRSD: 86 T: 65 QT: 403 QTc: 472 Interpretive Statements JUNCTIONAL RHYTHM ABNORMAL RHYTHM ECG Compared to ECG 10/13/2023 01:02:35 Junctional rhythm now present Sinus rhythm no longer present Incomplete right bundle-branch block no longer present Myocardial infarct finding no longer present Marvin Brewer MD ECG ORDERABLES Final Result [facility] * (ABNORMAL) COMPREHENSIVE METABOLIC PANEL (08/12/2024 4:49 PM CDT) GLUCOSE 293(H) 70 - 99 MG/DL 08/12/2024 5:33 PM CDT [facility] BUN 17 7 - 18 MG/DL 08/12/2024 5:33 PM CDT [facility] CREATININE S/P/B 0.84 0.55 - 1.02 MG/DL 08/12/2024 5:33 PM CDT [facility] SODIUM S/P/B 137 136 - 145 MMOL/L 08/12/2024 5:33 PM CDT [facility] POTASSIUM S/P/B 4.0 3.5 - 5.1 MMOL/L 08/12/2024 5:33 PM CDT [facility] CHLORIDE S/P/B 103 97 - 115 MMOL/L 08/12/2024 5:33 PM CDT [facility] CO2 27.7 21 - 32 MMOL/L 08/12/2024 5:33 PM CDT [facility] CALCIUM S/P/B 9.2 8.5 - 10.1 MG/DL 08/12/2024 5:33 PM CDT [facility] BILIRUBIN TOTAL S/P/B 0.4 0.2 - 1.2 MG/DL 08/12/2024 5:33 PM CDT [facility] Comment: THIS ASSAY IS NOT RECOMMENDED FOR PATIENTS UNDERGOING TREATMENT WITH ELTROMBOPAG DUE TO THE POTENTIAL FOR FALSELY ELEVATED RESULTS. TOTAL PROTEIN S/P/B 8.1 6.4 - 8.2 G/DL 08/12/2024 5:33 PM CDT [facility] ALBUMIN S/P/B 3.2(L) 3.4 - 5.0 G/DL 08/12/2024 5:33 PM CDT [facility] AST 20 15 - 37 U/L 08/12/2024 5:33 PM CDT [facility] ALT 29 14 - 55 U/L 08/12/2024 5:33 PM CDT [facility] ALKALINE PHOSPHATASE S/P/B 83 50 - 136 U/L 08/12/2024 5:33 PM CDT [facility] ANION GAP 6.3 2 - 10 MMOL/L 08/12/2024 5:33 PM CDT [facility] BUN CREATININE RATIO 20.3 6 - 26 08/12/2024 5:33 PM CDT [facility] A/G RATIO 0.7(L) 1.0 - 2.0 RATIO 08/12/2024 5:33 PM CDT [facility] GFR ESTIMATE 76(L) >90 ML/MIN/1.7 3 M2 08/12/2024 5:33 PM CDT [facility] Comment: NOTE: eGFR is not calculated for patients <18 years of age or gender unknown. This is an estimated GFR calculation using the new CKD EPI creatinine equation without race and so does not require a correction factor for race. This estimated GFR should not be used for calculating drug doses. 08/12/2024 4:49 PM CDT [facility] Final Result [facility] [address] [place] [address], [place] [phone] * (ABNORMAL) CBC W/DIFF AUTOMATED (08/12/2024 4:49 PM CDT) [facility] [address] WBC 12.17(H) 4.5 - 11.0 x10'3/uL 08/12/2024 5:00 PM CDT [facility] RBC 4.58 4.20 - 5.40 x10'6/uL 08/12/2024 5:00 PM CDT [facility] HGB 13.3 12.0 - 16.0 G/DL 08/12/2024 5:00 PM CDT [facility] HCT 42.6 38.0 - 48.0 % 08/12/2024 5:00 PM CDT [facility] MCV 93.0 81.0 - 99.0 FL 08/12/2024 5:00 PM CDT [facility] MCH 29.0 27.0 - 31.0 PG 08/12/2024 5:00 PM CDT [facility] MCHC 31.2(L) 32.0 - 36.0 G/DL 08/12/2024 5:00 PM CDT [facility] RDW 13.3 11.5 - 14.5 % 08/12/2024 5:00 PM CDT [facility] PLT 290 130 - 400 x10'3/uL 08/12/2024 5:00 PM CDT [facility] MPV 9.8 9.3 - 12.2 FL 08/12/2024 5:00 PM CDT [facility] DIFFERENTIAL TYPE AUTOMATED DIFFERENTIAL 08/12/2024 5:00 PM CDT [facility] NEUTROPHILS % 67.7 % 08/12/2024 5:00 PM CDT [facility] LYMPHOCYTES % 21.2 % 08/12/2024 5:00 PM CDT [facility] MONOCYTES % 8.0 % 08/12/2024 5:00 PM CDT [facility] EOSINOPHILS 2.3 % 08/12/2024 5:00 PM CDT [facility] BASOPHILS 0.3 % 08/12/2024 5:00 PM CDT [facility] IMMATURE GRANS % 0.5 % 08/13/19 5:00 PM CDT [facility] ABS. NEUTROPHILS 8.24(H) 1.80 - 7.70 x10'3/uL 08/12/2024 5:00 PM CDT [facility] ABS. LYMPHOCYTES 2.58 1.00 - 4.80 x10'3/uL 08/12/2024 5:00 PM CDT [facility] ABS. MONOCYTES 0.97(H) 0.24 - 0.86 x10'3/uL 08/12/2024 5:00 PM CDT [facility] ABS. EOSINOPHILS 0.28 0.04 - 0.36 x10'3/uL 08/12/2024 5:00 PM CDT [facility] ABS. BASOPHILS 0.04 0.01 - 0.08 x10'3/uL 08/12/2024 5:00 PM CDT [facility] ABS. IMMATURE GRANULOCYTES 0.06 0.00 - 0.49 x10'3/uL 08/12/2024 5:00 PM CDT [facility] 08/12/2024 4:49 PM CDT [facility] Final Result [facility] [address] [place] [address], [place] [phone] * (ABNORMAL) URINALYSIS (08/12/2024 4:48 PM CDT) SPECIMEN TYPE URINE CLEAN CATCH 08/12/2024 4:48 PM CDT [facility] COLOR (U) LIGHT YELLOW 08/12/2024 5:07 PM CDT [facility] TRANSPARENCY CLEAR 08/12/2024 5:07 PM CDT [facility] SPECIFIC GRAVITY (U) 1.016 1.001 - 1.030 08/12/2024 5:07 PM CDT [facility] U PH 6.0 5.0 - 9.0 08/12/2024 5:07 PM CDT [facility] LEUKOCYTES (U) NEGATIVE NEGATIVE 08/12/2024 5:07 PM CDT [facility] NITRITES NEGATIVE NEGATIVE 08/12/2024 5:07 PM CDT [facility] PROTEIN RANDOM (U) NEGATIVE <30 MG/DL 08/12/2024 5:07 PM CDT [facility] GLUCOSE (U) 1000(A) NORMAL MG/DL 08/12/2024 5:07 PM CDT [facility] KETONES MG/DL (U) NEGATIVE NEGATIVE MG/DL 08/12/2024 5:07 PM CDT [facility] UROBILINOGEN NORMAL NORMAL MG/DL 08/12/2024 5:07 PM CDT [facility] BILIRUBIN (U) NEGATIVE NEGATIVE MG/DL 08/12/2024 5:07 PM CDT [facility] BLOOD (U) NEGATIVE NEGATIVE 08/12/2024 5:07 PM CDT [facility] URINE SPECIMEN OBTAINED BY CLEAN CATCH PROCEDURE / Unknown 08/12/2024 4:48 PM CDT us [facility] URINE ORDERABLES Final Result [facility] [address] [place] [address], [place] [phone] documented in this encounter Visit Diagnoses Diagnosis [...] RN) documented in this encounter Care Teams Post Graduate Intern Relationship Specialty Start Date End Date Justen Gale MD Three [facility]. [facility] [address] [place], [place] [id number] PCP - General FAMILY PRACTICE 08/20/17 Meena Bansal MD [address] [address] [place] [facility]ist CARDIOVASCULAR DISEASE 04/24/16 documented as of this encounter
--- OUTSIDE RECORDS SUMMARY | 2024-08-13 22:40 | XMS_ITS | Referral Summary ---
Author Organization [facility] Address [address] [place] [id number] Care Team Providers Care Desktop Publishing Associate Name Role Phone Liu Jerez MD Unavailable [phone] Albert Corbin MD Unavailable [phone] Justen Gale MD Primary Care Provider Khris Arthur MD Unavailable [phone] Ko Melendez MD Unavailable John Paul Moyer MD Unavailable Annel Rod MD Unavailable Anali MARSHALL MD, Carlos M. Unavailable [phone] Encounters Date Type Department Care Team Description 07/01/2024 8:52 PM CDT - 07/01/2024 10:18 PM CDT Emergency [facility] Emergency Department [address] [place] [address] Myalgia (Primary Dx); Viral syndrome Discharge Disposition: Discharge to home or self care 05/30/2024 Orders Only [facility] [address] [facility] [address] [place] [address] Radha Mcgrath RN Lymphedema of left arm (Primary Dx); Malignant neoplasm of upper-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, unspecified estrogen receptor status (HCC); Malignant neoplasm of overlapping sites of left female breast, unspecified estrogen receptor status (HCC); Malignant neoplasm of female breast, unspecified estrogen receptor status, unspecified laterality, unspecified site of breast (HCC) 05/21/2024 9:12 PM FLEET SALES ASSOCIATE - 05/26/2024 6:45 PM FLEET SALES ASSOCIATE Hospital Encounter [address] [address] Jimmie Zavala MD Liss, MD Ra Parnell, MD Sebastian Claros, MD Carlos Left arm pain (Primary Dx); Left leg pain; Shortness of breath; Urinary tract infection without hematuria, site unspecified; Allergy to drug Discharge Disposition: Discharge to home or self care 05/24/2024 Telephone [facility] [address] [place] [address] Radha Warner RN 05/23/2024 8:10 AM FLEET SALES ASSOCIATE Ancillary Procedure [facility] Lab IP [address] [facility] [address] [place] [address] 05/21/2024 12:58 PM FLEET SALES ASSOCIATE - 05/21/2024 11:59 PM FLEET SALES ASSOCIATE Hospital Encounter AMBULANCE BILLING [address] [place] [address] Discharge Disposition: Discharge to home or self care 05/21/2024 11:00 AM FLEET SALES ASSOCIATE - 05/21/2024 11:59 PM FLEET SALES ASSOCIATE Hospital Encounter [facility] Breast [facility] [address] [place] [address] Floor 8 [place] [address] History of breast cancer; Axillary pain, left Discharge Disposition: Discharge to home or self care 05/16/2024 Telephone [facility] [address] [place] [address] 8 [place] [address] Jeanine Ba RMA 05/16/2024 Orders Only [facility] [address] [place] [address] 8 [place] [phone] Radha Mcgrath RN History of breast cancer (Primary Dx); Axillary pain, left 05/16/2024 Orders Only [facility] [address] [facility] [address] [place] [phone] Khris Arthur MD Swelling of left upper [...] Taken at 2100 Active blood glucose diagnostic (Qinging Weekly Flower Deliveryuch Ultra Test) strip 4 (four) times a [...] 05/22/2024 Assessment & Plan (05/26/2024 10:08 AM FLEET SALES ASSOCIATE): Presenting with urinary symptoms of right flank [...] 3 doses q48 hours -Previously followed with [facility] Urology, but lost to follow up when her Urologist left the practice, outpatient urology follow up placed - good pain control w/Dilaudid, continue prn Venous thromboembolism (VTE) 05/22/2024 Assessment & Plan (05/25/2024 7:52 AM FLEET SALES ASSOCIATE): Hx of breast cancer c/b DVT/bilateral Pes [...] 05/22/2024 Assessment & Plan (05/22/2024 1:14 PM FLEET SALES ASSOCIATE): -long-standing chronic back pain -CT L spine [...] 09/12/2021 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) 2021 FPC (current) use 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 inhibitors 10/17/2019 Thyroid [...] complication, without long-term current use of insulin ([facility]) 10/23/2017 Assessment & Plan (10/23/2017 2:06 [...] 10/13/2017 Assessment & Plan (05/22/2024 12:29 PM FLEET SALES ASSOCIATE): -Hx stage II, ER positive, HER2 negative breast cancer, on adjuvant exemestane -s/p bilateral mastectomies, left axillary LN dissection, with negative margins -[facility] review indicates plan to continue on exemestane, will complete 10 years of therapy in 12/2024 -Yearly Reclast, next dose 11/2024 Chest pressure 08/01/2017 Positive blood culture 08/01/2017 Hyponatremia 08/01/2017 Diet-controlled diabetes mellitus (CMS/HCC) 07/23 LUL (obstructive sleep apnea) 08/01/2017 Assessment & Plan (05/22/2024 12:33 PM FLEET SALES ASSOCIATE): -Hx LUL -Hospital provided CPAP ordered History of DVT (deep vein thrombosis) 08/01/2017 History of pulmonary embolism 08/01/2017 Generalized weakness 07/27/2017 Dyspnea 07/27/2017 Unintentional weight loss 07/27/2017 Acute cystitis without hematuria 07/27/2017 Nausea and vomiting 07/26/2017 Overview (07/28/2017): Added automatically from request for surgery [id number] Pulmonary embolism 08/09/2016 Assessment & Plan (10/23/2017 2:05 AM CDT): On Rivaroxaban Lymphedema of left upper extremity 08/09/2016 Assessment & Plan (05/25/2024 7:53 AM FLEET SALES ASSOCIATE): S/p L axillary lymph node dissection 2014, [...] syndrome Assessment & Plan (05/22/2024 11:18 AM FLEET SALES ASSOCIATE): -continue home Requip 5mg nightly Pain of lower extremity 03/12/2013 Overview (07/29/2016): Leg pain Essential hypertension Assessment & Plan (05/23/2024 10:42 AM FLEET SALES ASSOCIATE): -Chart history of HTN but not on meds -BP elevated on admission, likely some pain contributing -Monitor closely once pain under adequate control, discussed following up with PCP for this Chronic anticoagulation Restless leg syndrome 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 Type 2 diabetes mellitus without complication Assessment & Plan (05/24/2024 1:39 PM FLEET SALES ASSOCIATE): -Last Ha1c 8.4 in 2023, repeat 8.7 [...] you attend chur ch or alevism services? More than 4 times per year [...] any time in the past 12 m [facility], were you homeless or living in a [...] on file Legal Sex Female 12:24 AM FLEET SALES ASSOCIATE Gender Identity Not on file [...] GLUCOSE DEVICE Routine 05/26/2024 4 :27 PM FLEET SALES ASSOCIATE POCT GLUCOSE DEVICE Routine 05/26/2024 1 1:38 AM FLEET SALES ASSOCIATE POCT GLUCOSE DEVICE Routine 05/26/2024 8 :12 AM FLEET SALES ASSOCIATE EGFR Routine 05/26/2024 12:05 AM FLEET SALES ASSOCIATE DIFFERENTIAL AUTO Routine 05/26/2024 12: 05 AM FLEET SALES ASSOCIATE PHOSPHORUS Routine 05/26/2024 12:05 AM FLEET SALES ASSOCIATE COMPREHENSIVE METABOLIC PANEL Routine 05/26/2024 12:05 AM FLEET SALES ASSOCIATE MAGNESIUM Routine 05/26/2024 12:05 AM FLEET SALES ASSOCIATE CBC WITH AUTO DIFFERENTIAL Routine 05/26/2024 12:05 AM FLEET SALES ASSOCIATE POCT GLUCOSE DEVICE Routine 05/25/2024 7 :44 PM FLEET SALES ASSOCIATE POCT GLUCOSE DEVICE Routine 05/25/2024 5 :24 PM FLEET SALES ASSOCIATE POCT GLUCOSE DEVICE Routine 05/25/2024 1 1:37 AM FLEET SALES ASSOCIATE POCT GLUCOSE DEVICE Routine 05/25/2024 7 :27 AM FLEET SALES ASSOCIATE EGFR Routine 05/25/2024 12:20 AM FLEET SALES ASSOCIATE DIFFERENTIAL AUTO Routine 05/25/2024 12: 20 AM FLEET SALES ASSOCIATE PHOSPHORUS Routine 05/25/2024 12:20 AM FLEET SALES ASSOCIATE COMPREHENSIVE METABOLIC PANEL Routine 05/25/2024 12:20 AM FLEET SALES ASSOCIATE MAGNESIUM Routine 05/25/2024 12:20 AM FLEET SALES ASSOCIATE CBC WITH AUTO DIFFERENTIAL Routine 05/25/2024 12:20 AM FLEET SALES ASSOCIATE POCT GLUCOSE DEVICE Routine 05/24/2024 8 :13 PM FLEET SALES ASSOCIATE POCT GLUCOSE DEVICE Routine 05/24/2024 5 :17 PM FLEET SALES ASSOCIATE POCT GLUCOSE DEVICE Routine 05/24/2024 1 2:49 PM FLEET SALES ASSOCIATE POCT GLUCOSE DEVICE Routine 05/24/2024 9 :22 AM FLEET SALES ASSOCIATE HERPES SIMPLEX VIRUS (HSV) PCR Routine 05/24/2024 8:47 AM FLEET SALES ASSOCIATE POCT GLUCOSE DEVICE Routine 05/24/2024 8 :22 AM FLEET SALES ASSOCIATE EGFR Routine 05/24/2024 12:29 AM FLEET SALES ASSOCIATE DIFFERENTIAL AUTO Routine 05/24/2024 12: 29 AM FLEET SALES ASSOCIATE PHOSPHORUS Routine 05/24/2024 12:29 AM FLEET SALES ASSOCIATE COMPREHENSIVE METABOLIC PANEL Routine 05/24/2024 12:29 AM FLEET SALES ASSOCIATE MAGNESIUM Routine 05/24/2024 12:29 AM FLEET SALES ASSOCIATE CBC WITH AUTO DIFFERENTIAL Routine 05/24/2024 12:29 AM FLEET SALES ASSOCIATE POCT GLUCOSE DEVICE Routine 05/23/2024 8 :16 PM FLEET SALES ASSOCIATE POCT GLUCOSE DEVICE Routine 05/23/2024 6 :14 PM FLEET SALES ASSOCIATE POCT GLUCOSE DEVICE Routine 05/23/2024 1 2:17 PM FLEET SALES ASSOCIATE US VEIN DUPLEX LOWER EXTREMITY BILATERAL COMPLETE IP Routine 05/23/2024 11:45 AM FLEET SALES ASSOCIATE POCT GLUCOSE DEVICE Routine 05/23/2024 8 :16 AM FLEET SALES ASSOCIATE DIFFERENTIAL AUTO Routine 05/23/2024 2:3 0 AM FLEET SALES ASSOCIATE CBC WITH AUTO DIFFERENTIAL Routine 05/23/2024 2:30 AM FLEET SALES ASSOCIATE EGFR Routine 05/23/2024 12:42 AM FLEET SALES ASSOCIATE LACTATE DEHYDROGENASE Routine 05/23/2024 12:42 AM FLEET SALES ASSOCIATE URIC ACID Routine 05/23/2024 12:42 AM FLEET SALES ASSOCIATE TYPE AND SCREEN Timed 05/23/2024 12:42 AM FLEET SALES ASSOCIATE PHOSPHORUS Routine 05/23/2024 12:42 AM FLEET SALES ASSOCIATE COMPREHENSIVE METABOLIC PANEL Routine 05/23/2024 12:42 AM FLEET SALES ASSOCIATE MAGNESIUM Routine 05/23/2024 12:42 AM FLEET SALES ASSOCIATE POCT GLUCOSE DEVICE Routine 05/22/2024 8 :56 PM FLEET SALES ASSOCIATE POCT GLUCOSE DEVICE Routine 05/22/2024 6 :09 PM FLEET SALES ASSOCIATE POCT GLUCOSE DEVICE Routine 05/22/2024 4 :[address]ATE [address] ABDOMEN PELVIS W CONTRAST ED 05/22/2024 2:32 PM FLEET SALES ASSOCIATE POCT GLUCOSE DEVICE Routine 05/22/2024 1 2:58 PM FLEET SALES ASSOCIATE POCT GLUCOSE DEVICE Routine 05/22/2024 9 :29 AM FLEET SALES ASSOCIATE POCT GLUCOSE DEVICE Routine 05/22/2024 6 :54 AM FLEET SALES ASSOCIATE CT CHEST PE W CONTRAST ED 05/22/2024 1:31 AM FLEET SALES ASSOCIATE D-DIMER, QUANTITATIVE Routine 05/22/2024 12:24 AM FLEET SALES ASSOCIATE URINALYSIS, MICROSCOPIC ONLY Routine 05/21/2024 11:09 PM FLEET SALES ASSOCIATE TROPONIN I HIGH-SENSITIVITY 2-HOUR Timed 05/21/2024 11:09 PM FLEET SALES ASSOCIATE URINE CULTURE Routine 05/21/2024 11:09 PM FLEET SALES ASSOCIATE RESPIRATORY PATHOGEN PANEL Routine 05/21/2024 11:09 PM FLEET SALES ASSOCIATE URINALYSIS AND REFLEX TO MICROSCOPIC AND CULTURE Routine 05/21/2024 11:09 PM FLEET SALES ASSOCIATE POCT GLUCOSE DEVICE Routine 05/21/2024 8 :55 PM FLEET SALES ASSOCIATE TROPONIN I HIGH-SENSITIVITY 4-HOUR Timed 05/21/2024 7:26 PM FLEET SALES ASSOCIATE LIPID PANEL STAT 05/21/2024 4:20 PM FLEET SALES ASSOCIATE HEMOGLOBIN A1C STAT 05/21/2024 4:20 PM FLEET SALES ASSOCIATE EGFR STAT 05/21/2024 4:20 PM FLEET SALES ASSOCIATE DIFFERENTIAL AUTO STAT 05/21/2024 4:2 0 PM FLEET SALES ASSOCIATE TROPONIN I HIGH-SENSITIVITY SERIES (BASELINE, 2HR, 4HR, 6HR) STAT 05/21/2024 4:20 PM FLEET SALES ASSOCIATE COMPREHENSIVE METABOLIC PANEL STAT 05/21/2024 4:20 PM FLEET SALES ASSOCIATE CBC WITH AUTO DIFFERENTIAL STAT 05/21/2024 4:20 PM FLEET SALES ASSOCIATE XR CHEST PA LATERAL 2 VIEWS ED 05/21/2024 2:23 PM FLEET SALES ASSOCIATE POCT GLUCOSE DEVICE Routine 05/21/2024 1 :39 PM FLEET SALES ASSOCIATE ECG 12-LEAD STAT 05/21/2024 1:36 PM FLEET SALES ASSOCIATE US AXILLARY LEFT Schedule Routine, Read Routine (OP Routine) 05/21/2024 12:13 PM FLEET SALES ASSOCIATE History of breast cancer Axillary pain, left [...] breath since last night. 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 AR: VALERY Report ID: [id number] Reading Location: [id number] Procedure Note Juve Gallegos MD - 07/01/2024 [...] Juve Gallegos M.D. AR: VALERY Report ID: [id number] Reading Location: [id number] Lila MCKEON IMG CT PROCEDURES Final Resu lt * (ABNORMAL) Troponin T high-sensitivity 2-hour (07/01/2024 3:43 PM CDT) Trop T hs 27(H) <=14 ng/L Comment: Interpretive Data For further hscTnT resources including the diagnostic algorithm and an aid in interpretation, copy and paste this link: https://nrl.testcatalog.org/show/hsTrop Current Interpretive Data last revised 2020. Testing performed by: [address] [address] Trop T hs delta 0 ng/L MARY JANE PHAM Comment:Testing performed by : [address] [address] Trop T hs interp Insignificant MARY JANE PHAM Comment:Testing performed by : [address] [address] Blood 07/01/2024 3:43 PM CDT 07/01/2024 3:52 PM CDT Ilana Stevens MD LAB BLOOD ORDERABLES F inal Result MARY JANE [address] [facility] Department [place] [address] * (ABNORMAL) Urinalysis reflex to microscopic and culture Urine (07/01/2024 3:43 PM CDT) Color, ur Yellow Yellow Comment:Testing performed by : [address] [address] Clarity, ur Clear Clear MARY JANE Comment:Testing performed by : [address] [address] Specific gravity, ur 1.020 1.003 - 1.030 MARY JANE Comment:Testing performed by : [address] [address] pH, urine 6.0 MARY JANE Comment: Interpretive Data U rine pH is affected by diet, medications, systemic acid-base disturbances, and renal tubular function. pH may affect urinary stone formation. For example, urine pH below 6.0 may help reduce the tendency for calcium phosphate stones and pH greater than 6.0 may reduce the tendency for uric acid stone formation. Source: [facility] Current Interpretive Data was last revised on 2017 Testing performed by: [address] [address] Protein, ur ql Negative Negative MARY JANE Comment:Testing performed by : [address] [address] Glucose, ur ql 2+(A) Negative MARY JANE PHAM Comment:Testing performed by : [address] [address] Ketones, ur Negative Negative MARY JANE Comment:Testing performed by : [address] [address] Bilirubin, ur Negative Negative MARY JANE PHAM Comment:Testing performed by : [address] [address] Blood, ur Trace(A) Negative MARY JANE PHAM Comment:Testing performed by : [address] [address] Urobilinogen, ur <2.0 <2.0 mg/dL MARY JANE PHAM Comment:Testing performed by : [address] [address] Nitrite, ur Negative Negative MARY JANE PHAM Comment:Testing performed by : [address], [place]., [address] Leukocyte esterase, ur Negative Negative MARY JANE PHAM Comment:Testing performed by : [address] [address] UA reflex comment Reflex to microscopic UA will be performed. MARY JANE PHAM Comment:Testing performed by : [address] [address] Urine 07/01/2024 3:43 PM CDT 07/01/2024 3:52 PM CDT us Ilana Stevens MD LAB MICROBIOLOGY - GEN ERAL ORDERABLES Final Result MARY JANE [address] [facility] Department of Laboratories [place], [place] [id number] * (ABNORMAL) Urinalysis, microscopic only (07/01/2024 3:43 PM CDT) WBC, ur 0-5 0 - 5 /HPF Comment:Testing performed by : [address] [address] RBC, ur 3-5(A) 0 - 2 /HPF MARY JANE PHAM Comment:Testing performed by : [address] [address] Epithelial cells, squamous, ur 1-5 0 - 5 /HPF MARY JANE PHAM Comment:Testing performed by : [address], [place]., [address] Mucous, ur Present(A) MARY JANE PHAM Comment:Testing performed by : [address], [place]., [address] Culture Reflex Comment Reflex conditions for urine culture (WBC >10) not met. MARY JANE PHAM Comment:Testing performed by : [address] [address] Urine 07/01/2024 3:43 PM CDT 07/01/2024 3:52 PM CDT us Ilana Stevens MD LAB URINE ORDERABLES F inal Result MARY JANE PHAM [address] [facility] Department [place] [address] * XR Chest 1 Vw Portable (if [...] Romelia Bowen D.O. PS: PS Report ID: [id number] Reading Location: [id number] Procedure Note Romelia Bowen DO - 07/01/2024 [...] Romelia Bowen D.O. PS: PS Report ID: [id number] Reading Location: [place] [address] us Ilana Stevens MD IMG XR PROCEDURES Deann l Result * ECG 12 lead (07/01/2024 2:05 PM CDT) Ventricular Rate EKG/Min 76 BPM [facility] Atrial Rate 76 BPM [facility] AR-Interval (MSEC) 130 ms [facility] QRS-Interval (MSEC) 86 ms [facility] QT-Interval (MSEC) 386 ms [facility] QTc 434 ms [facility] P [place] 26 degrees [facility] R [place] 22 degrees [facility] T [place] 46 degrees [facility] Diagnosis Normal sinus rhythm Normal ECG When compared with ECG of 28-DEC-2023 12:49, No significant change was found Confirmed by DUTCH BURGOS M.D. ([id number]) on 07/01/2024 10:10:22 PM [facility] 07/01/2024 2:05 PM CDT 07/01/2024 10:10 [...] Data last revised 2020. Testing performed by: [address] [address] Blood 07/01/2024 2:02 PM CDT 07/01/2024 2:12 PM CDT Ilana Stevens MD LAB BLOOD ORDERABLES F inal Result [place] [id number] [facility] Department [place] [address] * Influenza A/B, RSV, and COVID-19 PCR Nasopharyngeal (07/01/2024 2:02 PM CDT) Pathologist [facility] COVID-19 RNA Negative Negative Comment:Testing performed by : [address] [address] Influenza A RNA Negative Negative MARY JANE Comment:Testing performed by : [address] [address] Influenza B RNA Negative Negative MARY JANE Comment:Testing performed by : [address] [address] RSV RNA Negative Negative [facility] Comment: Interpretive data: Testing performed by [facility]. This test is performed using the [employer] Xpert Xpress CoV-2/Flu/RSV plus assay. This is a multiplex, real-time reverse transcriptase PCR assay intended for the qualitative detection of nucleic acid from SARS-CoV-2, influenza A, influenza B, and respiratory syncytial virus. This assay has been cleared by the [place] Food and Drug administration. The performance characteristics have been verified by the [facility]. Results must be considered in the clinical context, and a negative result does not rule out infection. Interpretive Data last revised 2023 Testing performed by: [facility], [address] [place] [address]., [address] Nasopharyngeal 07/01/2024 2: 02 PM CDT 07/01/2024 2:12 PM CDT Narrative MARY JANE - 07/01/2024 2:52 PM CDT Is the Patient experiencing symptoms consistent with COVID?->Yes us Ilana Stevens MD LAB MICROBIOLOGY - GEN ERAL ORDERABLES Final Result Performing Organization Address City[facility] Co de Phone Number MARY JANE [address] [facility] Department [place] [address] * eGFR (07/01/2024 2:02 PM [...] reviewed 2021. Testing performed by: [facility], [address] [place] [address]., [address] Blood 07/01/2024 2:02 PM CDT 07/01/2024 2:12 PM CDT Ilana Stevens MD LAB BLOOD ORDERABLES F inal Result MARY JANE [address] [facility] Department [place] [address] * Differential, auto (07/01/2024 2:02 PM CDT) Neutrophil abs 5.3 1.5 - 6.5 K/cumm Comment:Testing performed by : [address] [address] Imm gran abs 0.0 0.0 - 0.1 K/cumm MARY JANE Comment:Testing performed by : [address] [address] Lymphocyte abs 2.6 0.8 - 3.3 K/cumm MARY JANE Comment:Testing performed by : [address] [address] Monocyte abs 0.8 0.2 - 0.8 K/cumm MARY JANE Comment:Testing performed by : [address] [address] Eosinophil abs 0.2 0.0 - 0.5 K/cumm MARY JANE Comment:Testing performed by : [address] [address] Basophil abs 0.0 0.0 - 0.1 K/cumm MARY JANE Comment:Testing performed by : [address] [address] Neutrophil pct 59.1 % MARY JANE Comment: Interpretive Data Percent cell count reference ranges are not reported, since discordance with absolute values may lead to misinterpretation of CBC data. Current Interpretive Data was last revised on 2017. Testing performed by: [address] [address] Imm gran pct 0.2 % MARY JANE Comment: Interpretive Data Percent cell count reference ranges are not reported, since discordance with absolute values may lead to misinterpretation of CBC data. Current Interpretive Data was last revised on 2017. Testing performed by: [address] [address] Lymphocyte pct 29.0 % MARY JANE Comment: Interpretive Data Percent cell count reference ranges are not reported, since discordance with absolute values may lead to misinterpretation of CBC data. Current Interpretive Data was last revised on 2017. Testing performed by: [address] [address] Monocyte pct 9.3 % [facility] Comment: Interpretive Data Percent cell count reference ranges are not reported, since discordance with absolute values may lead to misinterpretation of CBC data. Current Interpretive Data was last revised on 2017. Testing performed by: [address] [address] Eosinophil pct 2.2 % [facility] Comment: Interpretive Data Percent cell count reference ranges are not reported, since discordance with absolute values may lead to misinterpretation of CBC data. Current Interpretive Data was last revised on 2017. Testing performed by: [address] [address] Basophil pct 0.2 % [facility] Comment: Interpretive Data Percent cell count reference ranges are not reported, since discordance with absolute values may lead to misinterpretation of CBC data. Current Interpretive Data was last revised on 2017. Testing performed by: [address] [address] Blood 07/01/2024 2:02 PM CDT 07/01/2024 2:12 PM CDT us Ilana Stevens MD LAB BLOOD ORDERABLES F inal Result [facility] [address] [facility] Department [place] [address] * Pro B-type natriuretic peptide (07/01/2024 2:02 [...] Last Revised Date: 2017. Testing performed by: [address] [address] Blood 07/01/2024 2:02 PM CDT 07/01/2024 2:12 PM CDT us Ilana Stevens MD LAB BLOOD ORDERABLES F inal Result MARY JANE [address] [facility] Department [place] [address] * (ABNORMAL) CBC with auto differential (07/01/2024 2:02 PM CDT) [facility] WBC 9.0 3.8 - 9.9 K/cumm Comment:Testing performed by : [address] [address] Hgb 13.2 11.9 - 15.5 g/dL MARY JANE PHAM Comment:Testing performed by : [address] [address] Hct 41.1 35.6 - 45.5 % MARY JANE PHAM Comment:Testing performed by : [address] [address] Plt 277 150 - 400 K/cumm MARY JANE PHAM Comment:Testing performed by : [address] [address] MPV 9.5 9.1 - 12.3 fL MARY JANE PHAM Comment:Testing performed by : [address] [address] RBC 4.53 3.90 - 5.20 M/cumm MARY JANE PHAM Comment:Testing performed by : [address] [address] MCV 90.7 81.3 - 96.4 fL MARY JANE PHAM Comment:Testing performed by : [address] [address] MCH 29.1 27.1 - 33.3 pg MARY JANE PHAM Comment:Testing performed by : [address] [address] MCHC 32.1(L) 32.3 - 35.7 g/dL MARY JANE Comment:Testing performed by : [address] [address] RDW CV 13.2 11.1 - 14.9 % MARY JANE Comment:Testing performed by : [address] [address] RDW SD 44.2 35.7 - 48.1 fL MARY JANE PHAM Comment:Testing performed by : [address] [address] NRBC abs 0.00 0.00 - 0.01 K/cumm MARY JANE Comment:Testing performed by : [address] [address] Blood 07/01/2024 2:02 PM CDT 07/01/2024 2:12 PM CDT us Ilana Stevens MD LAB BLOOD ORDERABLES F inal Result [facility] [address] [facility] Department [place] [address] * Comprehensive metabolic panel (07/01/2024 2:02 PM CDT) Sodium 137 135 - 145 mmol/L Comment:Testing performed by : [address] [address] Potassium, pl 4.2 3.3 - 4.9 mmol/L MARY JANE Comment:Testing performed by : [address], [place]., [address] Chloride 101 97 - 110 mmol/L MARY JANE Comment:Testing performed by : [address], [place]., [address] CO2 27 22 - 32 mmol/L MARY JANE Comment:Testing performed by : [address], [place]., [address] Anion gap 9 2 - 15 mmol/L MARY JANE Comment:Testing performed by : [address], [place]., [address] BUN 15 6 - 25 mg/dL MARY JANE Comment:Testing performed by : [address] [address] Creatinine 0.60 0.60 - 1.10 mg/dL MARY JANE Comment:Testing performed by : [address] [address] Glucose 166 70 - 199 mg/dL [facility] Comment: Interpretive Data Fasting glucose [...] was last revised 2022. Testing performed by: [address] [address] Calcium 9.8 8.5 - 10.3 mg/dL MARY JANE Comment:Testing performed by : [address], [place]., [address] Bilirubin, total 0.5 0.1 - 1.2 mg/dL MARY JANE Comment:Testing performed by : [address] [address] Protein, pl 8.0 6.5 - 8.5 g/dL MARY JANE Comment:Testing performed by : [facility], [address] [place] [address]., [address] Albumin 3.8 3.5 - 5.0 g/dL MARY JANE Comment:Testing performed by : [address] [address] Alk phos 72 40 - 130 Units/L MARY JANE Comment:Testing performed by : [address] [address] ALT 19 7 - 45 Units/L MARY JANE Comment:Testing performed by : [address] [address] AST 23 10 - 45 Units/L MARY JANE Comment:Testing performed by : [address] [address] Blood 07/01/2024 2:02 PM CDT 07/01/2024 2:12 PM CDT us Ilana Stevens MD LAB BLOOD ORDERABLES F inal Result [address] [place] [address] * POCT glucose (05/26/2024 4:27 PM FLEET SALES ASSOCIATE) Glucose, POC 137 70 - 199 mg/dL Blood 05/26/2024 4:27 PM FLEET SALES ASSOCIATE 05/26/2024 4:27 PM FLEET SALES ASSOCIATE us Carlos Real MD LAB POCT ORDERABLES - DEVICE Fin al Result [facility] Department [place] [address] * POCT glucose (05/26/2024 11:38 AM FLEET SALES ASSOCIATE) Glucose, POC 146 70 - 199 mg/dL Blood 05/26/2024 11:3 8 AM FLEET SALES ASSOCIATE 05/26/2024 11:38 AM FLEET SALES ASSOCIATE Carlos Real MD LAB POCT ORDERABLES - DEVICE Fin al Result Performing Organization Address [facility] de Phone Number [place] [address] * POCT glucose (05/26/2024 8:12 AM FLEET SALES ASSOCIATE) Glucose, POC 134 70 - 199 mg/dL Blood 05/26/2024 8:12 AM FLEET SALES ASSOCIATE 05/26/2024 8:12 AM FLEET SALES ASSOCIATE Carlos Real MD LAB POCT ORDERABLES - DEVICE Fin al Result Performing Organization Address [facility] de Phone Number [facility] [place] [address] * eGFR (05/26/2024 12:05 AM FLEET SALES ASSOCIATE) eGFR >90 >=60 mL/min/1. 73 m2 Comment: [...] reviewed 2021. Blood 05/26/2024 12:0 5 AM FLEET SALES ASSOCIATE 05/26/2024 12:23 AM FLEET SALES ASSOCIATE us Carlos Real MD LAB BLOOD ORDERABLES Final Resul t [facility] Department [place] [address] * (ABNORMAL) Differential, auto (05/26/2024 12:05 AM FLEET SALES ASSOCIATE) Neutrophil abs 6.4 1.5 - 6.5 K/cumm Imm gran abs 0.0 0.0 - 0.1 K/cumm [facility] Lymphocyte abs 2.9 0.8 - 3.3 K/cumm [facility] Monocyte abs 0.9(H) 0.2 - 0.8 K/cumm [facility] Eosinophil abs 0.3 0.0 - 0.5 K/cumm [facility] Basophil abs 0.0 0.0 - 0.1 K/cumm [facility] Neutrophil pct 60.4 % [facility] Comment: Interpretive Data Percent cell count reference ranges are not reported, since discordance with absolute values may lead to misinterpretation of CBC data. Current Interpretive Data was last revised on 2017. Imm gran pct 0.4 % [facility] Comment: Interpretive Data Percent cell count reference ranges are not reported, since discordance with absolute values may lead to misinterpretation of CBC data. Current Interpretive Data was last revised on 2017. Lymphocyte pct 27.5 % [facility] Comment: Interpretive Data Percent cell count reference ranges are not reported, since discordance with absolute values may lead to misinterpretation of CBC data. Current Interpretive Data was last revised on 2017. Monocyte pct 8.2 % [facility] Comment: Interpretive Data Percent cell count reference ranges are not reported, since discordance with absolute values may lead to misinterpretation of CBC data. Current Interpretive Data was last revised on 2017. Eosinophil pct 3.1 % [facility] Comment: Interpretive Data Percent cell count reference ranges are not reported, since discordance with absolute values may lead to misinterpretation of CBC data. Current Interpretive Data was last revised on 2017. Basophil pct 0.4 % [facility] Comment: Interpretive Data Percent cell count reference ranges are not reported, since discordance with absolute values may lead to misinterpretation of CBC data. Current Interpretive Data was last revised on 2017. Blood 05/26/2024 12:0 5 AM FLEET SALES ASSOCIATE 05/26/2024 12:07 AM FLEET SALES ASSOCIATE Carlos Real MD LAB BLOOD ORDERABLES Final Resul t Performing Organization Address City/[facility]/ZIP Co de Phone Number [facility] Department [place] [address] * (ABNORMAL) CBC with auto differential (05/26/2024 12:05 AM FLEET SALES ASSOCIATE) WBC 10.6(H) 3.8 - 9.9 K/cumm Hgb 12.5 11.9 - 15.5 g/dL [facility] Hct 39.2 35.6 - 45.5 % [facility] Plt 248 150 - 400 K/cumm [facility] MPV 9.7 9.1 - 12.3 fL [facility] RBC 4.32 3.90 - 5.20 M/cumm [facility] MCV 90.7 81.3 - 96.4 fL [facility] MCH 28.9 27.1 - 33.3 pg [facility] MCHC 31.9(L) 32.3 - 35.7 g/dL [facility] RDW CV 13.5 11.1 - 14.9 % [facility] RDW SD 45.1 35.7 - 48.1 fL [facility] NRBC abs 0.00 0.00 - 0.01 K/cumm [facility] Blood 05/26/2024 12:0 5 AM FLEET SALES ASSOCIATE 05/26/2024 12:07 AM FLEET SALES ASSOCIATE Carlos Real MD LAB BLOOD ORDERABLES Final Resul t Performing Organization Address City/[facility]/ZIP Co de Phone Number [facility] Department [place] [address] * Phosphorus (05/26/2024 12:05 AM FLEET SALES ASSOCIATE) Pathologist [facility] Phosphorus, pl 3.2 2.3 - 4.5 mg/dL Blood 05/26/2024 12:0 5 AM FLEET SALES ASSOCIATE 05/26/2024 12:08 AM FLEET SALES ASSOCIATE Carlos Real MD LAB BLOOD ORDERABLES Final Resul t [facility] [place] [address] * Magnesium (05/26/2024 12:05 AM FLEET SALES ASSOCIATE) [facility] Magnesium 1.8 1.4 - 2.5 mg/dL Blood 05/26/2024 12:0 5 AM FLEET SALES ASSOCIATE 05/26/2024 12:08 AM FLEET SALES ASSOCIATE Carlos Real MD LAB BLOOD ORDERABLES Final Resul t Performing Organization Address City/[facility] Co de Phone Number [facility] [place] [address] * (ABNORMAL) Comprehensive metabolic panel (05/26/2024 12:05 AM FLEET SALES ASSOCIATE) Pathologist [facility] Sodium 136 135 - 145 mmol/L Potassium, pl 4.2 3.3 - 4.9 mmol/L [facility] Chloride 101 97 - 110 mmol/L [facility] CO2 29 22 - 32 mmol/L [facility] Anion gap 6 2 - 15 mmol/L [facility] BUN 19 6 - 25 mg/dL [facility] Creatinine 0.67 0.60 - 1.10 mg/dL [facility] Glucose 164 70 - 199 mg/dL [facility] Comment: Interpretive Data Fasting glucose [...] Calcium 9.4 8.5 - 10.3 mg/dL [facility] Bilirubin, total 0.4 0.1 - 1.2 mg/dL [facility] Protein, pl 7.1 6.5 - 8.5 g/dL [facility] Albumin 3.3(L) 3.5 - 5.0 g/dL [facility] Alk phos 65 40 - 130 Units/L [facility] ALT 17 7 - 45 Units/L [facility] AST 19 10 - 45 Units/L [facility] Blood 05/26/2024 12:0 5 AM FLEET SALES ASSOCIATE 05/26/2024 12:08 AM FLEET SALES ASSOCIATE Carlos Real MD LAB BLOOD ORDERABLES Final Resul t Performing Organization Address City/[facility]/ZIP Co de Phone Number [facility] [place] [address] * POCT glucose (05/25/2024 7:44 PM FLEET SALES ASSOCIATE) Glucose, POC 160 70 - 199 mg/dL Blood 05/25/2024 7:44 PM FLEET SALES ASSOCIATE 05/25/2024 7:44 PM FLEET SALES ASSOCIATE Carlos Real MD LAB POCT ORDERABLES - DEVICE Fin al Result Performing Organization Address City/[facility]/ZIP Co de Phone Number [facility] [place] [address] * POCT glucose (05/25/2024 5:24 PM FLEET SALES ASSOCIATE) Glucose, POC 152 70 - 199 mg/dL Blood 05/25/2024 5:24 PM FLEET SALES ASSOCIATE 05/25/2024 5:24 PM FLEET SALES ASSOCIATE Carlos Real MD LAB POCT ORDERABLES - DEVICE Fin al Result Performing Organization Address [facility] de Phone Number [facility] [place] [address] * POCT glucose (05/25/2024 11:37 AM FLEET SALES ASSOCIATE) Glucose, POC 143 70 - 199 mg/dL Blood 05/25/2024 11:3 7 AM FLEET SALES ASSOCIATE 05/25/2024 11:37 AM FLEET SALES ASSOCIATE Carlos Real MD LAB POCT ORDERABLES - DEVICE Fin al Result Performing Organization Address [facility] de Phone Number [facility] [place] [address] * POCT glucose (05/25/2024 7:27 AM FLEET SALES ASSOCIATE) Glucose, POC 134 70 - 199 mg/dL Blood 05/25/2024 7:27 AM FLEET SALES ASSOCIATE 05/25/2024 7:27 AM FLEET SALES ASSOCIATE Carlos Real MD LAB POCT ORDERABLES - DEVICE Fin al Result Performing Organization Address [facility] de Phone Number [facility] [place] [address] * eGFR (05/25/2024 12:20 AM FLEET SALES ASSOCIATE) eGFR >90 >=60 mL/min/1. 73 m2 Comment: [...] reviewed 2021. Blood 05/25/2024 12:2 0 AM FLEET SALES ASSOCIATE 05/25/2024 12:43 AM FLEET SALES ASSOCIATE us Naila Guzman NP LAB BLOOD ORDERABLES Final Result [facility] Department [place] [address] * Differential, auto (05/25/2024 12:20 AM FLEET SALES ASSOCIATE) Neutrophil abs 5.9 1.5 - 6.5 K/cumm Imm gran abs 0.0 0.0 - 0.1 K/cumm [facility] Lymphocyte abs 2.4 0.8 - 3.3 K/cumm [facility] Monocyte abs 0.8 0.2 - 0.8 K/cumm [facility] Eosinophil abs 0.3 0.0 - 0.5 K/cumm [facility] Basophil abs 0.0 0.0 - 0.1 K/cumm [facility] Neutrophil pct 62.6 % [facility] Comment: Interpretive Data Percent cell count reference ranges are not reported, since discordance with absolute values may lead to misinterpretation of CBC data. Current Interpretive Data was last revised on 2017. Imm gran pct 0.3 % [facility] Comment: Interpretive Data Percent cell count reference ranges are not reported, since discordance with absolute values may lead to misinterpretation of CBC data. Current Interpretive Data was last revised on 2017. Lymphocyte pct 24.8 % [facility] Comment: Interpretive Data Percent cell count reference ranges are not reported, since discordance with absolute values may lead to misinterpretation of CBC data. Current Interpretive Data was last revised on 2017. Monocyte pct 8.8 % [facility] Comment: Interpretive Data Percent cell count reference ranges are not reported, since discordance with absolute values may lead to misinterpretation of CBC data. Current Interpretive Data was last revised on 2017. Eosinophil pct 3.2 % [facility] Comment: Interpretive Data Percent cell count reference ranges are not reported, since discordance with absolute values may lead to misinterpretation of CBC data. Current Interpretive Data was last revised on 2017. Basophil pct 0.3 % [facility] Comment: Interpretive Data Percent cell count reference ranges are not reported, since discordance with absolute values may lead to misinterpretation of CBC data. Current Interpretive Data was last revised on 2017. Blood 05/25/2024 12:2 0 AM FLEET SALES ASSOCIATE 05/25/2024 12:29 AM FLEET SALES ASSOCIATE us Naila Guzman SOLE SCRAPER LAB BLOOD ORDERABLES Final Result [facility] Department [place] [address] * (ABNORMAL) CBC with auto differential (05/25/2024 12:20 AM FLEET SALES ASSOCIATE) WBC 9.5 3.8 - 9.9 K/cumm Hgb 12.8 11.9 - 15.5 g/dL [facility] Hct 40.0 35.6 - 45.5 % [facility] Plt 246 150 - 400 K/cumm [facility] MPV 9.8 9.1 - 12.3 fL [facility] RBC 4.42 3.90 - 5.20 M/cumm [facility] MCV 90.5 81.3 - 96.4 fL [facility] MCH 29.0 27.1 - 33.3 pg [facility] MCHC 32.0(L) 32.3 - 35.7 g/dL [facility] RDW CV 13.5 11.1 - 14.9 % [facility] RDW SD 45.3 35.7 - 48.1 fL [facility] NRBC abs 0.00 0.00 - 0.01 K/cumm [facility] Blood 05/25/2024 12:2 0 AM FLEET SALES ASSOCIATE 05/25/2024 12:29 AM FLEET SALES ASSOCIATE Naila Guzman NP LAB BLOOD ORDERABLES Final Result Performing Organization Address [facility] de Phone [place] [address] * Phosphorus (05/25/2024 12:20 AM FLEET SALES ASSOCIATE) [facility] Phosphorus, pl 3.1 2.3 - 4.5 mg/dL Blood 05/25/2024 12:2 0 AM FLEET SALES ASSOCIATE 05/25/2024 12:29 AM FLEET SALES ASSOCIATE Naila Guzman NP LAB BLOOD ORDERABLES Final Result Performing Organization Address [facility] de [place] [address] * Magnesium (05/25/2024 12:20 AM FLEET SALES ASSOCIATE) [facility] Magnesium 1.9 1.4 - 2.5 mg/dL Blood 05/25/2024 12:2 0 AM FLEET SALES ASSOCIATE 05/25/2024 12:29 AM FLEET SALES ASSOCIATE Naila Guzman NP LAB BLOOD ORDERABLES Final Result Performing Organization Address [facility] [place] [address] * (ABNORMAL) Comprehensive metabolic panel (05/25/2024 12:20 AM FLEET SALES ASSOCIATE) [facility] Sodium 138 135 - 145 mmol/L Potassium, pl 4.4 3.3 - 4.9 mmol/L [facility] Chloride 101 97 - 110 mmol/L [facility] CO2 29 22 - 32 mmol/L [facility] Anion gap 8 2 - 15 mmol/L [facility] BUN 20 6 - 25 mg/dL [facility] Creatinine 0.69 0.60 - 1.10 mg/dL [facility] Glucose 156 70 - 199 mg/dL [facility] Comment: Interpretive Data Fasting glucose [...] 2022. Calcium 9.4 8.5 - 10.3 mg/dL [facility] Bilirubin, total 0.5 0.1 - 1.2 mg/dL [facility] Protein, pl 7.4 6.5 - 8.5 g/dL [facility] Albumin 3.4(L) 3.5 - 5.0 g/dL [facility] Alk phos 67 40 - 130 Units/L [facility] ALT 18 7 - 45 Units/L [facility] AST 16 10 - 45 Units/L [facility] Blood 05/25/2024 12:2 0 AM FLEET SALES ASSOCIATE 05/25/2024 12:29 AM FLEET SALES ASSOCIATE us Naila Guzman NP LAB BLOOD ORDERABLES Final Result Performing Organization Address [facility] Co de Phone Number [facility] Department [place] [address] * POCT glucose (05/24/2024 8:13 PM FLEET SALES ASSOCIATE) [facility] Signature Glucose, POC 171 70 - 199 mg/dL Blood 05/24/2024 8:13 PM FLEET SALES ASSOCIATE 05/24/2024 8:13 PM FLEET SALES ASSOCIATE us Carlos Real MD LAB POCT ORDERABLES - DEVICE Fin al Result [place] [address] * POCT glucose (05/24/2024 5:17 PM FLEET SALES ASSOCIATE) Glucose, POC 133 70 - 199 mg/dL Blood 05/24/2024 5:17 PM FLEET SALES ASSOCIATE 05/24/2024 5:17 PM FLEET SALES ASSOCIATE Carlos Real MD LAB POCT ORDERABLES - DEVICE Fin al Result Performing Organization Address [facility] [place] [address] * POCT glucose (05/24/2024 12:49 PM FLEET SALES ASSOCIATE) Glucose, POC 180 70 - 199 mg/dL Blood 05/24/2024 12:4 9 PM FLEET SALES ASSOCIATE 05/24/2024 12:49 PM FLEET SALES ASSOCIATE Carlos Real MD LAB POCT ORDERABLES - DEVICE Fin al Result Performing Organization Address [facility] de Phone [place] [address] * POCT glucose (05/24/2024 9:22 AM FLEET SALES ASSOCIATE) Glucose, POC 139 70 - 199 mg/dL Blood 05/24/2024 9:22 AM FLEET SALES ASSOCIATE 05/24/2024 9:22 AM FLEET SALES ASSOCIATE Carlos Real MD LAB POCT ORDERABLES - DEVICE Fin al Result Performing Organization Address [facility] [place] [address] * Herpes Simplex Virus (HSV) PCR Oral (05/24/2024 8:47 AM FLEET SALES ASSOCIATE) HSV DNA Not Detected Not Detected [facility] Comment: Interpretive Data This assay is [...] reviewed on 08/21/2018 Oral 05/24/2024 8:47 AM FLEET SALES ASSOCIATE 05/24/2024 9:24 AM FLEET SALES ASSOCIATE Narrative [facility] - 05/24/2024 4:28 PM FLEET SALES ASSOCIATE Oral ulcer swab Naila Guzman NP LAB MICROBIOLOGY - GENERAL ORDERABLES Final Result Performing Organization Address [facility]/ZIP Co de Phone Number [facility] Department [place] [address] [facility] * POCT glucose (05/24/2024 8:22 AM FLEET SALES ASSOCIATE) [facility] Glucose, POC 132 70 - 199 mg/dL Blood 05/24/2024 8:22 AM FLEET SALES ASSOCIATE 05/24/2024 8:22 AM FLEET SALES ASSOCIATE Carlos Real MD LAB POCT ORDERABLES - DEVICE Fin al Result Performing Organization Address [facility] Co de Phone Number [facility] Department [place] [address] * eGFR (05/24/2024 12:29 AM FLEET SALES ASSOCIATE) [facility] eGFR 87 >=60 mL/min/1. 73 m2 [...] reviewed 2021. Blood 05/24/2024 12:2 9 AM FLEET SALES ASSOCIATE 05/24/2024 12:54 AM FLEET SALES ASSOCIATE us Naila Guzman NP LAB BLOOD ORDERABLES Final Result [facility] Department [place] [address] * (ABNORMAL) Differential, auto (05/24/2024 12:29 AM FLEET SALES ASSOCIATE) Neutrophil abs 5.3 1.5 - 6.5 K/cumm Imm gran abs 0.0 0.0 - 0.1 K/cumm [facility] Lymphocyte abs 3.0 0.8 - 3.3 K/cumm [facility] Monocyte abs 0.9(H) 0.2 - 0.8 K/cumm [facility] Eosinophil abs 0.3 0.0 - 0.5 K/cumm [facility] Basophil abs 0.0 0.0 - 0.1 K/cumm [facility] Neutrophil pct 55.8 % [facility] Comment: Interpretive Data Percent cell count reference ranges are not reported, since discordance with absolute values may lead to misinterpretation of CBC data. Current Interpretive Data was last revised on 2017. Imm gran pct 0.4 % [facility] Comment: Interpretive Data Percent cell count reference ranges are not reported, since discordance with absolute values may lead to misinterpretation of CBC data. Current Interpretive Data was last revised on 2017. Lymphocyte pct 31.4 % [facility] Comment: Interpretive Data Percent cell count reference ranges are not reported, since discordance with absolute values may lead to misinterpretation of CBC data. Current Interpretive Data was last revised on 2017. Monocyte pct 9.0 % [facility] Comment: Interpretive Data Percent cell count reference ranges are not reported, since discordance with absolute values may lead to misinterpretation of CBC data. Current Interpretive Data was last revised on 2017. Eosinophil pct 3.0 % [facility] Comment: Interpretive Data Percent cell count reference ranges are not reported, since discordance with absolute values may lead to misinterpretation of CBC data. Current Interpretive Data was last revised on 2017. Basophil pct 0.4 % [facility] Comment: Interpretive Data Percent cell count reference ranges are not reported, since discordance with absolute values may lead to misinterpretation of CBC data. Current Interpretive Data was last revised on 2017. Blood 05/24/2024 12:2 9 AM FLEET SALES ASSOCIATE 05/24/2024 12:54 AM FLEET SALES ASSOCIATE us Naila Guzman SOLE SCRAPER LAB BLOOD ORDERABLES Final Result [facility] Department [place] [address] * CBC with auto differential (05/24/2024 12:29 AM FLEET SALES ASSOCIATE) WBC 9.5 3.8 - 9.9 K/cumm Hgb 12.6 11.9 - 15.5 g/dL [facility] Hct 39.0 35.6 - 45.5 % [facility] Plt 223 150 - 400 K/cumm [facility] MPV 9.6 9.1 - 12.3 fL [facility] RBC 4.23 3.90 - 5.20 M/cumm [facility] MCV 92.2 81.3 - 96.4 fL [facility] MCH 29.8 27.1 - 33.3 pg [facility] MCHC 32.3 32.3 - 35.7 g/dL [facility] RDW CV 13.7 11.1 - 14.9 % [facility] RDW SD 46.5 35.7 - 48.1 fL [facility] NRBC abs 0.00 0.00 - 0.01 K/cumm [facility] Blood 05/24/2024 12:2 9 AM FLEET SALES ASSOCIATE 05/24/2024 12:54 AM FLEET SALES ASSOCIATE Naila Guzman NP LAB BLOOD ORDERABLES Final Result Performing Organization Address City/[facility] Co de Phone Number [facility] [place] [address] * Phosphorus (05/24/2024 12:29 AM FLEET SALES ASSOCIATE) Pathologist [facility] Phosphorus, pl 3.6 2.3 - 4.5 mg/dL Blood 05/24/2024 12:2 9 AM FLEET SALES ASSOCIATE 05/24/2024 12:54 AM FLEET SALES ASSOCIATE Naila Guzman NP LAB BLOOD ORDERABLES Final Result Performing Organization Address [facility] de Phone Number [place] [address] * Magnesium (05/24/2024 12:29 AM FLEET SALES ASSOCIATE) Pathologist [facility] Magnesium 1.9 1.4 - 2.5 mg/dL Blood 05/24/2024 12:2 9 AM FLEET SALES ASSOCIATE 05/24/2024 12:54 AM FLEET SALES ASSOCIATE Naila Guzman NP LAB BLOOD ORDERABLES Final Result Performing Organization Address [facility] de Phone Number [place] [address] * (ABNORMAL) Comprehensive metabolic panel (05/24/2024 12:29 AM FLEET SALES ASSOCIATE) Pathologist [facility] Sodium 139 135 - 145 mmol/L Potassium, pl 4.3 3.3 - 4.9 mmol/L [facility] Chloride 103 97 - 110 mmol/L [facility] CO2 29 22 - 32 mmol/L [facility] Anion gap 7 2 - 15 mmol/L [facility] BUN 19 6 - 25 mg/dL [facility] Creatinine 0.75 0.60 - 1.10 mg/dL [facility] Glucose 157 70 - 199 mg/dL [facility] Comment: Interpretive Data Fasting glucose [...] 2022. Calcium 9.2 8.5 - 10.3 mg/dL [facility] Bilirubin, total 0.4 0.1 - 1.2 mg/dL [facility] Protein, pl 7.1 6.5 - 8.5 g/dL [facility] Albumin 3.3(L) 3.5 - 5.0 g/dL [facility] Alk phos 65 40 - 130 Units/L [facility] ALT 18 7 - 45 Units/L [facility] AST 17 10 - 45 Units/L [facility] Blood 05/24/2024 12:2 9 AM FLEET SALES ASSOCIATE 05/24/2024 12:54 AM FLEET SALES ASSOCIATE us Naila Guzman NP LAB BLOOD ORDERABLES Final Result [facility] Department [place] [address] * POCT glucose (05/23/2024 8:16 PM FLEET SALES ASSOCIATE) Glucose, POC 145 70 - 199 mg/dL Blood 05/23/2024 8:16 PM FLEET SALES ASSOCIATE 05/23/2024 8:16 PM FLEET SALES ASSOCIATE Carlos Real MD LAB POCT ORDERABLES - DEVICE Fin al Result Performing Organization Address [facility] [place] [address] * POCT glucose (05/23/2024 6:14 PM FLEET SALES ASSOCIATE) Glucose, POC 181 70 - 199 mg/dL Blood 05/23/2024 6:14 PM FLEET SALES ASSOCIATE 05/23/2024 6:14 PM FLEET SALES ASSOCIATE Carlos Real MD LAB POCT ORDERABLES - DEVICE Fin al Result Performing Organization Address [facility] [place] [address] * POCT glucose (05/23/2024 12:17 PM FLEET SALES ASSOCIATE) Glucose, POC 159 70 - 199 mg/dL Blood 05/23/2024 12:1 7 PM FLEET SALES ASSOCIATE 05/23/2024 12:17 PM FLEET SALES ASSOCIATE Cem Knapp MD LAB POCT ORDERABLES - DEVIC E Final Result Performing Organization Address [facility] [place] [address] * US Vein Duplex Lower Extremity Bilateral Complete (05/23/2024 11:45 AM FLEET SALES ASSOCIATE) LV EF % CONS SCIMAGE Anatomical Region Laterality Modality Vascular Bilateral Ultrasound 05/23/2024 11:1 2 AM FLEET SALES ASSOCIATE Narrative 05/23/2024 9:43 PM FLEET SALES ASSOCIATE [facility] - Department of Vascular Surgery, Vascular Laboratory [address] [place] [id number] Lower Extremity Venous Ultrasound Report Patient Name: MOHSEN MARQUES M : 1955 (68y 11m) Study Date: 05/23/2024 11:12:03 AM Gender: F Tech: VELVET Location: [id number] Ref Provider: CARLOS REAL Quality: Adequate Order Provider: CARLOS REAL PROCEDURES: Vascular Report: Venous Duplex imaging was performed bilaterally in the lower extremities. The common femoral, femoral, popliteal, posterior tibial, peroneal veins were evaluated for patency, spontaneity and phasicity with Doppler, compression and augmentation maneuvers. Great saphenous vein proximal at the junction was evaluated with compression maneuvers. INDICATIONS: Localized edema. FINDINGS: Performing Property Developer: Marlys Castillo RVT. Bilateral: Venous Doppler signals [...] Vu Obregon MD FACS 05/23/2024 9:42:19 PM FLEET SALES ASSOCIATE Procedure Note Vu Obregon MD - 05/23/2024 [facility] - Department of Vascular Surgery,Vascular Laboratory [address] [place] [address] Lower Extremity Venous Ultrasound Report Patient Name: MOHSEN MARQUES M : 1955 (68y 11m) Study Date: 05/23/2024 11:12:03 AM Gender: F Tech: VELVET Location: [id number] Ref Provider: CARLOS REAL Quality: Adequate Order Provider: CARLOS REAL PROCEDURES: Vascular Report: Venous Duplex imaging was performed bilaterally in the lower extremities.The common femoral, femoral, popliteal, posterior tibial, peroneal veins wereevaluated for patency, spontaneity and phasicity with Doppler, compression and augmentationmaneuvers. Great saphenous vein proximal at the junction was evaluated with compressionmaneuvers. INDICATIONS: Localized edema. FINDINGS: Performing Property Developer: Marlys Castillo RVT. Bilateral: Venous Doppler signals [...] Vu Obregon MD FACS 05/23/2024 9:42:19 PM FLEET SALES ASSOCIATE Carlos Real MD [facility] US PROCEDURES Final Result * (ABNORMAL) POCT glucose (05/23/2024 8:16 AM FLEET SALES ASSOCIATE) Pathologist [facility] Glucose, POC 204(H) 70 - 199 mg/dL Blood 05/23/2024 8:16 AM FLEET SALES ASSOCIATE 05/23/2024 8:16 AM FLEET SALES ASSOCIATE Cem Knapp MD LAB POCT ORDERABLES - DEVIC E Final Result [facility] [place] [address] * (ABNORMAL) Differential, auto (05/23/2024 2:30 AM FLEET SALES ASSOCIATE) Neutrophil abs 8.0(H) 1.5 - 6.5 K/cumm Imm gran abs 0.1 0.0 - 0.1 K/cumm [facility] Lymphocyte abs 2.6 0.8 - 3.3 K/cumm [facility] Monocyte abs 1.0(H) 0.2 - 0.8 K/cumm [facility] Eosinophil abs 0.3 0.0 - 0.5 K/cumm [facility] Basophil abs 0.0 0.0 - 0.1 K/cumm [facility] Neutrophil pct 66.5 % [facility] Comment: Interpretive Data Percent cell count reference ranges are not reported, since discordance with absolute values may lead to misinterpretation of CBC data. Current Interpretive Data was last revised on 2017. Imm gran pct 0.5 % [facility] Comment: Interpretive Data Percent cell count reference ranges are not reported, since discordance with absolute values may lead to misinterpretation of CBC data. Current Interpretive Data was last revised on 2017. Lymphocyte pct 21.9 % [facility] Comment: Interpretive Data Percent cell count reference ranges are not reported, since discordance with absolute values may lead to misinterpretation of CBC data. Current Interpretive Data was last revised on 2017. Monocyte pct 8.5 % [facility] Comment: Interpretive Data Percent cell count reference ranges are not reported, since discordance with absolute values may lead to misinterpretation of CBC data. Current Interpretive Data was last revised on 2017. Eosinophil pct 2.3 % [facility] Comment: Interpretive Data Percent cell count reference ranges are not reported, since discordance with absolute values may lead to misinterpretation of CBC data. Current Interpretive Data was last revised on 2017. Basophil pct 0.3 % [facility] Comment: Interpretive Data Percent cell count reference ranges are not reported, since discordance with absolute values may lead to misinterpretation of CBC data. Current Interpretive Data was last revised on 2017. Blood 05/23/2024 2:30 AM FLEET SALES ASSOCIATE 05/23/2024 1:03 AM FLEET SALES ASSOCIATE us Naila Guzman NP LAB BLOOD ORDERABLES Final Result [facility] Department [place] [address] * (ABNORMAL) CBC with auto differential (05/23/2024 2:30 AM FLEET SALES ASSOCIATE) WBC 11.9(H) 3.8 - 9.9 K/cumm Hgb 12.8 11.9 - 15.5 g/dL [facility] Hct 39.6 35.6 - 45.5 % [facility] Plt 254 150 - 400 K/cumm [facility] MPV 9.7 9.1 - 12.3 fL [facility] RBC 4.43 3.90 - 5.20 M/cumm [facility] MCV 89.4 81.3 - 96.4 fL [facility] MCH 28.9 27.1 - 33.3 pg [facility] MCHC 32.3 32.3 - 35.7 g/dL [facility] RDW CV 13.7 11.1 - 14.9 % [facility] RDW SD 44.6 35.7 - 48.1 fL [facility] NRBC abs 0.00 0.00 - 0.01 K/cumm [facility] Blood 05/23/2024 2:30 AM FLEET SALES ASSOCIATE 05/23/2024 1:03 AM FLEET SALES ASSOCIATE us Naila Guzman SOLE SCRAPER LAB BLOOD ORDERABLES Final Result [facility] Department [place] [address] * eGFR (05/23/2024 12:42 AM FLEET SALES ASSOCIATE) [facility] eGFR 84 >=60 mL/min/1. 73 m2 [...] reviewed 2021. Blood 05/23/2024 12:4 2 AM FLEET SALES ASSOCIATE 05/23/2024 1:02 AM FLEET SALES ASSOCIATE us Naila Guzman NP LAB BLOOD ORDERABLES Final Result Performing Organization Address [facility] Co de Phone Number [facility] [place] [address] * Type and screen (05/23/2024 12:42 AM FLEET SALES ASSOCIATE) ABO Rh O Positive Dilcia, indirect Negative [facility] Blood 05/23/2024 12:4 2 AM FLEET SALES ASSOCIATE 05/23/2024 12:52 AM FLEET SALES ASSOCIATE Narrative [facility] - 05/23/2024 1:53 AM FLEET SALES ASSOCIATE Has the patient had Daratumumab or Isatuximab in the past 6 months?->Unknown Naila Guzman NP LAB BLOOD BANK TEST ORDERA BLES Final Result Performing Organization Address [facility] Co de Phone Number [facility] Department [place] [address] * Uric acid (05/23/2024 12:42 AM FLEET SALES ASSOCIATE) Pathologist [facility] Uric acid 5.5 2.5 - 7.0 mg/dL Blood 05/23/2024 12:4 2 AM FLEET SALES ASSOCIATE 05/23/2024 1:02 AM FLEET SALES ASSOCIATE Narrative [facility] - 05/23/2024 1:34 AM FLEET SALES ASSOCIATE Monday and only. Morning draw. . us Naila Guzman NP LAB BLOOD ORDERABLES Final Result Performing Organization Address [facility] Co de Phone Number [facility] [place] [address] * Phosphorus (05/23/2024 12:42 AM FLEET SALES ASSOCIATE) Pathologist [facility] Phosphorus, pl 4.4 2.3 - 4.5 mg/dL Blood 05/23/2024 12:4 2 AM FLEET SALES ASSOCIATE 05/23/2024 1:02 AM FLEET SALES ASSOCIATE Naila Guzman NP LAB BLOOD ORDERABLES Final Result Performing Organization Address [facility] de Phone Number [facility] [place] [address] * Magnesium (05/23/2024 12:42 AM FLEET SALES ASSOCIATE) [facility] Magnesium 1.9 1.4 - 2.5 mg/dL Blood 05/23/2024 12:4 2 AM FLEET SALES ASSOCIATE 05/23/2024 1:02 AM FLEET SALES ASSOCIATE Naila Guzman NP LAB BLOOD ORDERABLES Final Result Performing Organization Address [facility] de Phone Number [facility] [address] * Lactate dehydrogenase (LD) (05/23/2024 12:42 AM FLEET SALES ASSOCIATE) [facility] Lactate dehydrogenase (LDH) 247 100 - 250 Units/L Blood 05/23/2024 12:4 2 AM FLEET SALES ASSOCIATE 05/23/2024 1:02 AM FLEET SALES ASSOCIATE Narrative [facility] - 05/23/2024 1:34 AM FLEET SALES ASSOCIATE Monday and only. Morning draw. Naila Guzman NP LAB BLOOD ORDERABLES Final Result Performing Organization Address [facility] de Phone Number [facility] [address] * Comprehensive metabolic panel (05/23/2024 12:42 AM FLEET SALES ASSOCIATE) [facility] Sodium 136 135 - 145 mmol/L Potassium, pl 4.3 3.3 - 4.9 mmol/L [facility] Chloride 101 97 - 110 mmol/L [facility] CO2 29 22 - 32 mmol/L [facility] Anion gap 6 2 - 15 mmol/L [facility] BUN 18 6 - 25 mg/dL [facility] Creatinine 0.77 0.60 - 1.10 mg/dL [facility] Glucose 194 70 - 199 mg/dL [facility] Comment: Interpretive Data Fasting glucose [...] 2022. Calcium 9.5 8.5 - 10.3 mg/dL [facility] Bilirubin, total 0.5 0.1 - 1.2 mg/dL [facility] Protein, pl 7.4 6.5 - 8.5 g/dL [facility] Albumin 3.5 3.5 - 5.0 g/dL [facility] Alk phos 71 40 - 130 Units/L [facility] ALT 19 7 - 45 Units/L [facility] AST 22 10 - 45 Units/L [facility] Blood 05/23/2024 12:4 2 AM FLEET SALES ASSOCIATE 05/23/2024 1:02 AM FLEET SALES ASSOCIATE us Naila Guzman NP LAB BLOOD ORDERABLES Final Result [facility] Department [place] [address] * (ABNORMAL) POCT glucose (05/22/2024 8:56 PM FLEET SALES ASSOCIATE) Pathologist [facility] Glucose, POC 210(H) 70 - 199 mg/dL Blood 05/22/2024 8:56 PM FLEET SALES ASSOCIATE 05/22/2024 8:56 PM FLEET SALES ASSOCIATE Cem Knapp MD LAB POCT ORDERABLES - DEVIC E Final Result Performing Organization Address [facility] Co de Phone Number [place] [address] * POCT glucose (05/22/2024 6:09 PM FLEET SALES ASSOCIATE) Glucose, POC 142 70 - 199 mg/dL Blood 05/22/2024 6:09 PM FLEET SALES ASSOCIATE 05/22/2024 6:09 PM FLEET SALES ASSOCIATE Leo Henry MD LAB POCT ORDERABLES - NILESH CE Final Result Performing Organization Address [facility] de Phone [place] [address] * POCT glucose (05/22/2024 4:26 PM FLEET SALES ASSOCIATE) Glucose, POC 133 70 - 199 mg/dL Blood 05/22/2024 4:26 PM FLEET SALES ASSOCIATE 05/22/2024 4:26 PM FLEET SALES ASSOCIATE Leo Henry MD LAB POCT ORDERABLES - NILESH CE Final Result Performing Organization Address [facility] [place] [address] * CT Abdomen Pelvis W Contrast (05/22/2024 2:32 PM FLEET SALES ASSOCIATE) Anatomical Region Laterality Modality Body N/A Computed Tomogra phy 05/22/2024 4:35 PM FLEET SALES ASSOCIATE Impressions 05/22/2024 5:16 PM FLEET SALES ASSOCIATE No acute findings within the abdomen or pelvis. Dictated by: Yesi Mendes M.D. The radiology attending physician has personally reviewed this study, and had reviewed and/or edited this written report and agrees with it. Electronically signed by: Kelli Palmer M.D. Narrative 05/22/2024 5:16 PM FLEET SALES ASSOCIATE EXAMINATION: Computed tomography of the abdomen and [...] sult * POCT glucose (05/22/2024 12:58 PM FLEET SALES ASSOCIATE) Glucose, POC 177 70 - 199 mg/dL Blood 05/22/2024 12:5 8 PM FLEET SALES ASSOCIATE 05/22/2024 12:58 PM FLEET SALES ASSOCIATE Leo Henry MD LAB POCT ORDERABLES - NILESH CE Final Result [facility] Department [place] [address] * (ABNORMAL) POCT glucose (05/22/2024 9:29 AM FLEET SALES ASSOCIATE) Glucose, POC 291(H) 70 - 199 mg/dL Blood 05/22/2024 9:29 AM FLEET SALES ASSOCIATE 05/22/2024 9:29 AM FLEET SALES ASSOCIATE Leo Henry MD LAB POCT ORDERABLES - NILESH CE Final Result Performing Organization Address [facility] Co de Phone Number [facility] [place] [address] * POCT glucose (05/22/2024 6:54 AM FLEET SALES ASSOCIATE) Glucose, POC 142 70 - 199 mg/dL Blood 05/22/2024 6:54 AM FLEET SALES ASSOCIATE 05/22/2024 6:54 AM FLEET SALES ASSOCIATE Jimmie Zavala MD LAB POCT ORDERABLES - DEVICE Fin al Result Performing Organization Address [facility] de Phone Number [facility] Department [place] [address] * CT Chest PE (CTA) W Contrast (05/22/2024 1:31 AM FLEET SALES ASSOCIATE) Anatomical Region Laterality Modality Body N/A Computed Tomogra phy 05/22/2024 2:38 AM FLEET SALES ASSOCIATE Impressions 05/22/2024 9:12 AM FLEET SALES ASSOCIATE No pulmonary embolism. Dictated by: Miguel Milligan MD The radiology attending physician has personally reviewed this study, and had reviewed and/or edited this written report and agrees with it. Electronically signed by: Jayson Rockwell M.D. Narrative 05/22/2024 9:12 AM FLEET SALES ASSOCIATE EXAMINATION: CT CHEST PE (CTA) W CONTRAST [...] Result * D-dimer, quantitative (05/22/2024 12:24 AM FLEET SALES ASSOCIATE) D-Dimer 414 <=499 ng/mL FEU Comment: Interpretive [...] on 2019. Blood 05/22/2024 12:2 4 AM FLEET SALES ASSOCIATE 05/22/2024 12:42 AM FLEET SALES ASSOCIATE Angeline Soler MD LAB BLOOD ORDERABLES F inal Result [facility] Department of Laboratories [place], [place] [id number] * Troponin I high-sensitivity 2-hour (05/21/2024 11:09 PM FLEET SALES ASSOCIATE) Trop I hs 5 <=17 ng/L Comment: Interpretive Data For further hscTnI resources including the diagnostic algorithm and an aid in interpretation, copy and paste this link: https://bjhlab.testcatalog.org/show/hsTrop-1 Current Interpretive Data last revised 2019. Trop I hs delta See Comment ng/L [facility] Comment:Inappropriate collec tion time to report a delta. Trop I hs pct delta See Comment % [facility] Comment:Inappropriate collec tion time to report a delta. Trop I hs interp See Comment [facility] Comment:Inappropriate collec tion time to report a delta. Blood 05/21/2024 11:0 9 PM FLEET SALES ASSOCIATE 05/21/2024 11:26 PM FLEET SALES ASSOCIATE us Cira Castro MD LAB BLOOD ORDERABL ES Final Result [facility] Department [place] [address] * (ABNORMAL) Urinalysis reflex to microscopic and culture Urine (05/21/2024 11:09 PM FLEET SALES ASSOCIATE) Color, ur Yellow Yellow Clarity, ur Clear Clear [facility] Specific gravity, ur 1.025 1.003 - 1.030 [facility] pH, urine 6.0 [facility] Comment: Interpretive Data U rine pH is affected by diet, medications, systemic acid-base disturbances, and renal tubular function. pH may affect urinary stone formation. For example, urine pH below 6.0 may help reduce the tendency for calcium phosphate stones and pH greater than 6.0 may reduce the tendency for uric acid stone formation. Source: [facility] [employer] Current Interpretive Data was last revised on 2017 Protein, ur ql 1+(A) Negative [facility] Glucose, ur ql Negative Negative [facility] Ketones, ur Negative Negative [facility] Bilirubin, ur Negative Negative [facility] Blood, ur Trace(A) Negative [facility] Urobilinogen, ur <2.0 <2.0 mg/dL [facility] Nitrite, ur Positive(A) Negative [facility] Leukocyte esterase, ur 1+(A) Negative [facility] UA reflex comment Reflex to microscopic UA will be performed. [facility] Urine 05/21/2024 11:0 9 PM FLEET SALES ASSOCIATE 05/21/2024 11:22 PM FLEET SALES ASSOCIATE us Angeline Soler MD LAB MICROBIOLOGY - GEN ERAL ORDERABLES Final Result [facility] Department [place] [address] * Respiratory pathogen panel Nasopharyngeal (05/21/2024 11:09 PM FLEET SALES ASSOCIATE) Pathologist [facility] Influenza A RNA Not Detected Not Detected Influenza B RNA Not Detected Not Detected [facility] RSV RNA Not Detected Not Detected [facility] COVID-19 RNA Not Detected Not Detected [facility] Coronavirus 229E RNA Not Detected Not Detected [facility] Coronavirus HKU1 RNA Not Detected Not Detected [facility] Coronavirus NL63 RNA Not Detected Not Detected [facility] Coronavirus OC43 RNA Not Detected Not Detected [facility] Adenovirus DNA Not Detected Not Detected [facility] Metapneumovirus RNA Not Detected Not Detected [facility] Rhinovirus/Enterov irus RNA Not Detected Not Detected [facility] Parainfluenza 1 RNA Not Detected Not Detected [facility] Parainfluenza 2 RNA Not Detected Not Detected [facility] Parainfluenza 3 RNA Not Detected Not Detected [facility] Parainfluenza 4 RNA Not Detected Not Detected [facility] B. pertussis DNA Not Detected Not Detected [facility] B. parapertussis DNA Not Detected Not Detected [facility] C. pneumoniae DNA Not Detected Not Detected [facility] M. pneumoniae DNA Not Detected Not Detected [facility] Nasopharyngeal 05/21/2024 11 :09 PM FLEET SALES ASSOCIATE 05/22/2024 4:48 AM FLEET SALES ASSOCIATE Narrative [facility] - 05/22/2024 5:55 AM FLEET SALES ASSOCIATE Is the Patient experiencing symptoms consistent with COVID?->No Surveillance testing for transplant patient?->No Interpretive Data The [employer] FilmArray Respiratory Panel (RP2.1) assay is a [...] assay has FDA clearance for testing of SOLE SCRAPER swabs. The performance of additional specimen types has been assessed by the performing laboratory. The performance characteristics of this assay have been determined by [facility] Infectious Disease Laboratory. Current interpretive data was last revised on 22. Angeline Soler MD LAB MICROBIOLOGY - GEN ERAL ORDERABLES Final Result [facility] [place] [address] * (ABNORMAL) Urinalysis, microscopic only (05/21/2024 11:09 PM FLEET SALES ASSOCIATE) WBC, ur 11-20(A) 0 - 5 /HPF RBC, ur 3-5(A) 0 - 2 /HPF [facility] Epithelial cells, squamous, ur 1-5 0 - 5 /HPF [facility] Bacteria, ur 3+(A) [facility] Yeast, ur Trace(A) [facility] Mucous, ur Present(A) [facility] Culture Reflex Comment Reflex to urine culture will be performed. [facility] Urine 05/21/2024 11:0 9 PM FLEET SALES ASSOCIATE 05/21/2024 11:21 PM FLEET SALES ASSOCIATE us Angeline Soler MD LAB URINE ORDERABLES F inal Result [facility] Department [place] [address] * (ABNORMAL) Urine culture Urine (05/21/2024 11:09 PM FLEET SALES ASSOCIATE) Report Amended Report - Complete: Greater than or equal to 100,000 colonies/mL of Escherichia coli Plus growth of clinically insignificant bacterial yesenia. (.) Organism ESCHERICHIA COLI [facility] Organism PLUS GROWTH OF CLINICALLY INSIGNIFICANT YESENIA. [facility] Urine 05/21/2024 11:0 9 PM FLEET SALES ASSOCIATE 05/22/2024 2:40 AM FLEET SALES ASSOCIATE Narrative [facility] - 05/25/2024 10:36 AM FLEET SALES ASSOCIATE Urine culture reflexed based upon urinalysis results. Testing performed by [facility] Microbiology Laboratory ([phone]) Organism Antibiotic Method Susceptibility Escherichia coli Ampicillin [...] Edited Result - Final Performing Organization Address [facility] Co de Phone Number [facility] Department [place] [address] * POCT glucose (05/21/2024 8:55 PM FLEET SALES ASSOCIATE) Pathologist [facility] Glucose, POC 139 70 - 199 mg/dL Blood 05/21/2024 8:55 PM FLEET SALES ASSOCIATE 05/21/2024 8:55 PM FLEET SALES ASSOCIATE Result [facility] Notinfile Unknown LAB POCT ORDERABLES - DEVICE F inal Result Performing Organization Address [facility] de Phone Number [facility] [place] [address] * Troponin I high-sensitivity 4-hour (05/21/2024 7:26 PM FLEET SALES ASSOCIATE) Pathologist [facility] Trop I hs 4 <=17 ng/L Comment: Interpretive Data For further hscTnI resources including the diagnostic algorithm and an aid in interpretation, copy and paste this link: https://bjhlab.testcatalog.org/show/hsTrop-1 Current Interpretive Data last revised 2019. Trop I hs delta -1 ng/L [facility] Trop I hs interp Insignificant [facility] Blood 05/21/2024 7:26 PM FLEET SALES ASSOCIATE 05/21/2024 7:37 PM FLEET SALES ASSOCIATE Cira Castro MD LAB BLOOD ORDERABL ES Final Result Performing Organization Address [facility] Co de Phone Number [facility] Department [place] [address] * Troponin I high-sensitivity series (baseline, 2hr, 4hr, 6hr) (05/21/2024 4:20 PM FLEET SALES ASSOCIATE) Trop I hs 5 <=17 ng/L Comment: Interpretive Data For further hscTnI resources including the diagnostic algorithm and an aid in interpretation, copy and paste this link: https://bjhlab.testcatalog.org/show/hsTrop-1 Current Interpretive Data last revised 2019. Blood 05/21/2024 4:20 PM FLEET SALES ASSOCIATE 05/21/2024 4:50 PM FLEET SALES ASSOCIATE Jimmie Zavala MD LAB BLOOD ORDERABLES Final Resul t [facility] [place] [address] * eGFR (05/21/2024 4:20 PM FLEET SALES ASSOCIATE) Pathologist [facility] eGFR >90 >=60 mL/min/1. 73 m2 Comment: [...] last reviewed 2021. Blood 05/21/2024 4:20 PM FLEET SALES ASSOCIATE 05/21/2024 4:50 PM FLEET SALES ASSOCIATE us Jimmie Zavala MD LAB BLOOD ORDERABLES Final Resul t [facility] [place] [address] * (ABNORMAL) Differential, auto (05/21/2024 4:20 PM FLEET SALES ASSOCIATE) Neutrophil abs 8.0(H) 1.5 - 6.5 K/cumm Imm gran abs 0.0 0.0 - 0.1 K/cumm [facility] Lymphocyte abs 2.4 0.8 - 3.3 K/cumm [facility] Monocyte abs 0.8 0.2 - 0.8 K/cumm [facility] Eosinophil abs 0.2 0.0 - 0.5 K/cumm [facility] Basophil abs 0.0 0.0 - 0.1 K/cumm [facility] Neutrophil pct 69.4 % [facility] Comment: Interpretive Data Percent cell count reference ranges are not reported, since discordance with absolute values may lead to misinterpretation of CBC data. Current Interpretive Data was last revised on 2017. Imm gran pct 0.4 % [facility] Comment: Interpretive Data Percent cell count reference ranges are not reported, since discordance with absolute values may lead to misinterpretation of CBC data. Current Interpretive Data was last revised on 2017. Lymphocyte pct 21.4 % [facility] Comment: Interpretive Data Percent cell count reference ranges are not reported, since discordance with absolute values may lead to misinterpretation of CBC data. Current Interpretive Data was last revised on 2017. Monocyte pct 6.7 % [facility] Comment: Interpretive Data Percent cell count reference ranges are not reported, since discordance with absolute values may lead to misinterpretation of CBC data. Current Interpretive Data was last revised on 2017. Eosinophil pct 1.8 % [facility] Comment: Interpretive Data Percent cell count reference ranges are not reported, since discordance with absolute values may lead to misinterpretation of CBC data. Current Interpretive Data was last revised on 2017. Basophil pct 0.3 % [facility] Comment: Interpretive Data Percent cell count reference ranges are not reported, since discordance with absolute values may lead to misinterpretation of CBC data. Current Interpretive Data was last revised on 2017. Blood 05/21/2024 4:20 PM FLEET SALES ASSOCIATE 05/21/2024 4:50 PM FLEET SALES ASSOCIATE Jimmie Zavala MD LAB BLOOD ORDERABLES Final Resul t Performing Organization Address City/[facility]/ZIP Co de Phone Number [facility] [place] [address] * (ABNORMAL) CBC with auto differential (05/21/2024 4:20 PM FLEET SALES ASSOCIATE) WBC 11.4(H) 3.8 - 9.9 K/cumm Hgb 14.0 11.9 - 15.5 g/dL [facility] Hct 43.6 35.6 - 45.5 % [facility] Plt 286 150 - 400 K/cumm [facility] MPV 9.9 9.1 - 12.3 fL [facility] RBC 4.83 3.90 - 5.20 M/cumm [facility] MCV 90.3 81.3 - 96.4 fL [facility] MCH 29.0 27.1 - 33.3 pg [facility] MCHC 32.1(L) 32.3 - 35.7 g/dL [facility] RDW CV 13.6 11.1 - 14.9 % [facility] RDW SD 45.6 35.7 - 48.1 fL [facility] NRBC abs 0.00 0.00 - 0.01 K/cumm [facility] Blood Venous blood specimen / Unknown 05/21/2024 4:20 PM FLEET SALES ASSOCIATE 05/21/2024 4:50 PM FLEET SALES ASSOCIATE us Jimmie Zavala MD LAB BLOOD ORDERABLES Final Resul t Performing Organization Address City/[facility]/ZIP Co de Phone Number [facility] [place] [address] * (ABNORMAL) Hemoglobin A1c (05/21/2024 4:20 PM FLEET SALES ASSOCIATE) Hgb A1C 8.7(H) 4.0 - 5.6 % [...] a fasting glucose. Blood 05/21/2024 4:20 PM FLEET SALES ASSOCIATE 05/21/2024 4:55 PM FLEET SALES ASSOCIATE Leo Henry MD LAB BLOOD ORDERABLES Final Result [facility] Department [place] [address] * (ABNORMAL) Lipid panel (05/21/2024 4:20 PM FLEET SALES ASSOCIATE) Cholesterol 205(H) 30 - 199 mg/dL Comment: [...] 2017. Triglycerides 92 <=149 mg/dL [facility] Comment: Interpretive Data Ages < or = [...] 2017. HDL 55 >=40 mg/dL [facility] Comment: Interpretive Data Ages < or = [...] LDL, calculated 134(H) <=129 mg/dL [facility] Comment: Interpretive Data Ages < or = [...] 2023. Non-HDL Cholesterol 150 mg/dL [facility] Comment: Interpretive Data Ages < or = [...] last revised on 2017. Chol/HDL ratio 4 [facility] Blood 05/21/2024 4:20 PM FLEET SALES ASSOCIATE 05/21/2024 4:50 PM FLEET SALES ASSOCIATE Narrative [facility] - 05/22/2024 4:17 PM FLEET SALES ASSOCIATE Reflex us Leo Henry MD LAB BLOOD ORDERABLES Final Result [facility] Department [place] [address] * Comprehensive metabolic panel (05/21/2024 4:20 PM FLEET SALES ASSOCIATE) Sodium 140 135 - 145 mmol/L Potassium, pl 4.3 3.3 - 4.9 mmol/L [facility] Chloride 100 97 - 110 mmol/L [facility] CO2 29 22 - 32 mmol/L [facility] Anion gap 11 2 - 15 mmol/L [facility] BUN 14 6 - 25 mg/dL [facility] Creatinine 0.63 0.60 - 1.10 mg/dL [facility] Glucose 119 70 - 199 mg/dL [facility] Comment: Interpretive Data Fasting glucose [...] 2022. Calcium 10.0 8.5 - 10.3 mg/dL [facility] Bilirubin, total 0.7 0.1 - 1.2 mg/dL [facility] Protein, pl 8.5 6.5 - 8.5 g/dL [facility] Albumin 3.9 3.5 - 5.0 g/dL [facility] Alk phos 83 40 - 130 Units/L [facility] ALT 23 7 - 45 Units/L [facility] AST 22 10 - 45 Units/L [facility] Blood 05/21/2024 4:20 PM FLEET SALES ASSOCIATE 05/21/2024 4:50 PM FLEET SALES ASSOCIATE us Jimmie Zavala MD LAB BLOOD ORDERABLES Final Resul t [facility] [place] [address] * XR Chest Pa Lateral 2 Views (05/21/2024 2:23 PM FLEET SALES ASSOCIATE) Anatomical Region Laterality Modality Body, Chest N/A Computed Radiogr aphy 05/21/2024 2:28 PM FLEET SALES ASSOCIATE Impressions 05/21/2024 2:36 PM FLEET SALES ASSOCIATE The current study is compared with the [...] Jaime Neves M.D. Narrative 05/21/2024 2:36 PM FLEET SALES ASSOCIATE EXAMINATION: 2 view chest radiograph Procedure Note [...] Result * POCT glucose (05/21/2024 1:39 PM FLEET SALES ASSOCIATE) Glucose, POC 113 70 - 199 mg/dL Blood 05/21/2024 1:39 PM FLEET SALES ASSOCIATE 05/21/2024 1:39 PM FLEET SALES ASSOCIATE us Notinfile Unknown LAB POCT ORDERABLES - DEVICE F inal Result [facility] [place] [address] * ECG 12-LEAD (05/21/2024 1:36 PM FLEET SALES ASSOCIATE) Narrative [facility] - 05/21/2024 1:36 PM FLEET SALES ASSOCIATE Gil Mcgrath MD 05/21/2024 1:37 PM ECG [...] in the ED Gil Mcgrath MD 05/21/24 4050 Jimmie Zavala MD ECG ORDERABLES Final Result Performing Organization Address City/State/ZIP Co mo Phone Number [facility] * US Axillary Breast Left (05/21/2024 12:13 PM FLEET SALES ASSOCIATE) Anatomical Region Laterality Modality Upper Extremities Left Ultrasound 05/21/2024 12:2 3 PM FLEET SALES ASSOCIATE Impressions 05/21/2024 12:23 PM FLEET SALES ASSOCIATE 1. Limited ultrasound due to extensive edema [...] Alicia Wilcox M.D. Narrative 05/21/2024 12:23 PM FLEET SALES ASSOCIATE EXAMINATION: LEFT AXILLARY ULTRASOUND HISTORY: Patient is [...] Bone mineral density was performed on a [employer] Discovery Densitometer. Based on machine cross-calibration and [...] by the International Society of Clinical Densitometry. [id number] Khris Arthur MD IMG DXA PROCEDURES F [...] agrees with it. ACC# Date Time Exam [id number] Aug 19, 2016 14:27:00 [facility] [address] [employer] CAD, unilat L Technologist(s): Carla Harris; ; [id number] Aug 19, 2016 15:39:00 [facility] [address] Breast US unilateral, ltd L ACC# Date Time Exam [id number] Aug 19, 2016 14:27:00 [facility] [address] [employer] CAD, unilat L Technologist(s): Carla Harris; ; [id number] Aug 19, 2016 15:39:00 [facility] [address] Breast US unilateral, ltd L EXAMINATION: LEFT [...] SARABIA M.D. on Aug 19 2016 4:20P [id number] Procedure Note Miscellaneous, Not In File / Provider, MD Tyler - 09/17/2016 ANTHONY SARABIA M.D. JUDY RINCON M.D. FINAL REPORT The radiology attending physician has personally reviewed this study, and has reviewed and/or edited this written report and agrees with it. ACC# Date Time Exam [id number] Aug 19, 2016 14:27:00 [facility] [address] [employer] CAD, unilat L Technologist(s): Carla Harris; ; [id number] Aug 19, 2016 15:39:00 [facility] [address] Breast US unilateral, ltd L ACC# Date Time Exam [id number] Aug 19, 2016 14:27:00 [facility] [address] [employer] CAD, unilat L Technologist(s): Carla Harris; ; [id number] Aug 19, 2016 15:39:00 [facility] [address] Breast US unilateral, ltd L EXAMINATION: LEFT [...] SARABIA M.D. on Aug 19 2016 4:20P [id number] us Not In File Miscellaneous IMG MAMMO PROCEDURES F inal Result from Last 3 Months or Most Recently Relevant to Health Maintenance Insurance [facility] MEDICARE ADVANTAGE [facility] MEDIC[facility] Address: [address] [address] [place] [address] [facility] MEDICARE ADVANTAGE [facility] MEDIC[facility] Address: [address] [address] [place] [address] [employer] MEDICARE ADVANTAGE [facility] MEDICARE Address: [address] [address] [place] [address] Advance Directives For more information, please contact: [phone] Documents on File Type Date Recorded Patient Gis Database Administrator Expl anation ADVANCE DIRECTIVE 12/23/2021 2:49 PM Power of Framer-Medical ADVANCE DIRECTIVE 12/23/2021 2:49 PM Living Will [...] First Alternate Health Care Agent Care Teams Desktop Publishing Associate Relationship Specialty Start Date End Date Justen Gale MD [address] [address] PCP - General 10/09/17 Liu Jerez MD Consulting Physician Gastroenterology 07/28/17 [place] [address] [facility] [address] [place] [address] Consulting Physician Pulmonary Disease 08/03/17 [place] [address] [place] [address] [address] [place] [address] Medical Oncologist/Percussion Instrument Tuner Medical Oncology 10/23/17 [place] [address] [facility] [address] [place] [address] Surgeon Orthopedic Surgery 10/23/17 [place] [address] [facility] [address] [place] [address] Consulting Physician Pain Management 10/23/17 [place] [address] [facility] [address] [place] [address] Referring Physician General Surgery 01/26/18 [place] [address] [facility] [address] [place] [address] Consulting Physician Neurology 01/26/18
--- OUTSIDE RECORDS SUMMARY | 2024-08-13 22:40 | XMS_ITS | Encounter Summary ---
Author Organization [facility] Address [address] [place] [address] Phone Care Team Providers Care Regional Safety Manager Name Role Phone Justen Gale MD Primary Care Provider David Roberts APRN, PASTRY ARTIST Unavailable [phone] Annel Rod MD Unavailable Reason for Visit * Reason Comments Medication Refill Encounter Details Date Type Department Care Team (Late st Contact Info) Description 02/07/2020 Refill [facility] [address] [place] [address] Justen Gale MD #[address] [address] Medication Refill Social History Tobacco Use Types [...] Visit [facility] - Endocr[facility]ology - [place] [address] [place] [address] Annel Rod MD #[address] [address] 09/24/2024 2:00 PM CDT [facility]ointment [facility] [address] [place] [address] Angelito Alegria APRN, PASTRY ARTIST #2 [facility] [address] [place] [address] Discharge Disposition: Discharged to home or Selfcare documented as of this encounter Visit Diagnoses Not on filedocumented in this encounter Additional Health Concerns Infection Onset Date Last Indicated Resolved Time COVID - 19 08/01/2024 08/01/2024 08/01/2024 3:20 PM CDT Assessment Noted Time PHQ-9 Depression Total Score: 0 09/08/19 1:00 PM CDT documented as of this encounter Care Teams Regional Safety Manager Relationship Specialty Start Date End Date Justen Gale MD #[address] [address] PCP - General Family Medicine 10/17/17 David Roberts APRN, NETTA #2 [place] [address] Nurse Practitioner Advanced Practice Nurse 01/31/22 Annel Rod MD #[address] [address] Consulting Physician Endocrinology 07/01/22 documented as of this encounter
--- OUTSIDE RECORDS SUMMARY | 2024-08-13 22:40 | XMS_ITS | Encounter Summary ---
Author Organization [facility] Address [address] [place] [address] Phone Care Team Providers Care Supervisor Food Checkers And Cashiers Name Role Phone Justen Gale MD Primary Care Provider [phone] David Roberts APRN, THREAD SEPARATOR Unavailable [phone] Annel Rod MD Unavailable Reason for Visit * Reason Comments Medication Refill Encounter Details Date Type Department Care Team (Late st Contact Info) Description 03/02/2023 Refill [facility] #2 [place] [id number] Justen Gale MD #[address] [address] Medication Refill Social History Tobacco Use Types [...] Tamika Villarreal RN - 03/02/2023 8:51 AM POWER DISTRIBUTION ENGINEER Medication failed the protocol, provider to review [...] Dept 01/17/23 Office Visit Catrina Quiñonez MD [facility] 09/16/22 Office Visit Pili Elkins APRN, CNP [facility] 07/05/22 Office Visit Pili Elkins APRN, NETTA [facility] 05/02/22 Office Visit Justen Gale MD [facility] 03/03/22 Office Visit Pili Elkins APRN, NETTA [facility] Showing recent visits within past 365 days and meeting all other requirements Future Appointments No visits were found meeting these conditions. Showing future appointments within next 90 days and meeting all other requirements R DISTRIBUTION ENGINEER documented in this encounter Plan of Treatment Upcoming Encounters Date Type Department Care Team (Late st Contact Info) Description 09/18/2024 2:45 PM CDT Office Visit [facility] - [facility] - [place] #2 [place] [id number] Annel Rod MD #[address] [phone] 09/24/2024 2:00 PM CDT Appointment [facility] Cardiology Services [address] [place] [address] Angelito Alegria, NEGATIVE CLEANER, THREAD SEPARATOR #[address] [address] Discharge Disposition: Discharged to home or Selfcare documented as of this encounter Visit Diagnoses Not on filedocumented in this encounter Additional Health Concerns Infection Onset Date Last Indicated Resolved Time COVID - 19 08/01/2024 08/01/2024 08/01/2024 3:20 PM CDT Assessment Noted Time PHQ-9 Depression Total Score: 8 01/18/20 2:24 PM CDT documented as of this encounter Care Teams Supervisor Food Checkers And Cashiers Relationship Specialty Start Date End Date Justen Gale MD #[address] [address] PCP - General Family Medicine 10/17/17 David Roberts APRN, THREAD SEPARATOR #2 [place] [address] Nurse Practitioner Advanced Practice Nurse 01/31/22 Annel Rod MD #[address] [address] Consulting Physician Endocrinology 07/01/22 documented as of this encounter
--- OUTSIDE RECORDS SUMMARY | 2024-08-13 22:40 | XMS_ITS | CONTINUITY OF CARE DOCUMENT ---
Author Name ayesha, ayesha Address Unknown Organization [facility] Address [address] [place] [address] Phone [phone] Care Team Providers Care Poising Inspector Name Role Phone Yamilet DURÁN, Maico Unavailable ALANIS DURÁN, BRIDGETT Unavailable ALLISON DURÁN, CLARISSE Unavailable PROBLEMS Condition Status Date Provider Notes Shortness of breath active Ivory Rodriguez Palpitations active Radha Seals INSURANCE PROVIDERS Payer name Policy type / Coverage type [place] red alliance party ID UHC MEDICARE COMPLETE HMO Other [id number] [facility] Medicaid 2 [id number] HISTORY OF PROCEDURES Procedure Date Procedure Name Provider Procedure Notes S tatus Stress EKG Carmine Silverio MD complet ed Regadenoson, 4 units Sergey Saldana MD completed Cardiolite, 2 units Sergey Saldana MD completed SPECT Images Carmine Silverio MD compl eted Holter, 24 or 48 Maico Woodard MD co mpleted
--- OUTSIDE RECORDS SUMMARY | 2024-08-13 22:40 | XMS_ITS | Encounter Summary ---
Author Organization [facility] Address [address] [place] [address] Phone Care Team Providers Care Human Resources Associate Name Role Phone Lavonne Hathaway MD Primary Care Provider + [phone] Liu Jerez MD Unavailable [phone] Albert Corbin MD Unavailable [phone] uJsten Gale MD Primary Care Provider + [phone] Lavonne Hathaway MD Primary Care Provider + [phone] Justen Gale MD Primary Care Provider + [phone] Khris Arthur MD Unavailable + [phone] Ko Melendez MD Unavailable [phone] John Paul Moyer MD Unavailable Annel Rod MD Unavailable Anali MARSHALL MD, Carlos M. Unavailable [phone] Encounter Details Date Type Department Care Team ([facility] Contact Info) Description 05/15/2017 Orders Only [facility] Scanning, Provider Social History Tobacco Use Types Packs/Day Years Used Date Smoking Tobacco: Former Alcohol Use Standard Drinks/Week Comments No 0 (1 standard drink = 0.6 oz pur e alcohol) Comments Unknown Sex and Gender Information Value Date Recorded Sex Assigned at Not on file Legal Sex Female 12:24 AM STONECUTTER APPRENTICE HAND Gender Identity Not on file Sexual [...] COVID: Recovered 02/10/2022 02/10/2022 06/10/2022 3:05 AM STONECUTTER APPRENTICE HAND Exposure, COVID-19 Comment:Added automatically based on COVID19 lab answers indicating exposure risk 02/11/2022 02/11/2022 02/15/2022 9:06 AM C DT COVID: Suspected 05/14/2022 05/14/2022 05/14/2022 10:41 AM STONECUTTER APPRENTICE HAND COVID: Suspected 06/07/2022 06/07/2022 06/07/2022 12:28 PM STONECUTTER APPRENTICE HAND COVID: Suspected 06/21/2022 06/21/2022 06/21/2022 2:12 AM STONECUTTER APPRENTICE HAND COVID: Suspected 10/05/2022 10/05/2022 10/05/2022 7:40 PM CDT COVID: Suspected 01/04/2024 01/04/2024 01/04/2024 10:30 PM CDT COVID: Suspected 02/14/2024 02/14/2024 02/15/2024 12:36 AM CDT COVID: Suspected 07/01/2024 07/01/2024 07/01/2024 2:53 PM CDT COVID: Suspected 07/01/2024 07/01/2024 07/02/2024 3:05 AM CDT documented as of this encounter Care Teams Human Resources Associate Relationship Specialty Start Date End Date Lavonne Hathaway MD [address] [place] [address] [place] [address] PCP - General 08/16/16 08/17/17 Justen Gale MD [address] [place] [address] [address] PCP - General 08/18/17 08/22/17 Lavonne Hathaway MD [address] [place] [address] [place] [address] PCP - General Family Medicine 08/23/17 10/08/17 Justen Gale MD 2 COUNT INCLUDES [facility] [place] [address] [address] PCP - General 10/09/17 Liu Jerez MD [address] [place] [address] [place] [address] Consulting Physician Gastroenterology 07/28/17 [place] [address] [facility] [address] [place] [address] Consulting Physician Pulmonary Disease 08/03/17 Khris Arthur MD [address] [facility] [address] [place] [address] Medical Oncologist/Shipfitter Apprentice Medical Oncology 10/23/17 [place] [address] [facility] [address] [place] [address] Surgeon Orthopedic Surgery 10/23/17 [place] [address] [facility] [address] [place] [address] Consulting Physician Pain Management 10/23/17 [place] [address] [facility] [address] [place] [address] Referring Physician General Surgery 01/26/18 [place] [address] [facility] [address] [place] [address] Consulting Physician Neurology 01/26/18 documented as of this encounter
--- OUTSIDE RECORDS SUMMARY | 2024-08-13 22:40 | XMS_ITS | Encounter Summary ---
Author Organization [facility] Address [address] [place] [address] Phone Care Team Providers Care Scientific Technical Writer Name Role Phone Justen Gale MD Primary Care Provider [phone] David Roberts APRN, LOG RIDER Unavailable [phone] Annel Rod MD Unavailable Encounter Details Date Type Department Care Team (Late st Contact Info) Description 06/05/2020 [facility] 1 [place] [address] Pili Elkins APRN, LOG RIDER #[address] [address] Frequency of micturition Social History [...] COVID-19? No / Unsure 2020 11:37 AM PRODUCTION QUALITY ANALYST documented as of this encounter Plan of Treatment Upcoming Encounters Date Type Department Care Team (Late st Contact Info) Description 09/18/2024 2:45 PM CDT [facility] Visit [facility] - [place] #2 [place] [address] Annel Rod MD #2 [facility] [address] [place] [address] 09/24/2024 2:00 PM CDT [facility]ointment [facility] 1 [place] [address] Angelito Alegria, ZAMZAM, LOG RIDER #2 [facility] [address] [place] [address] Discharge Disposition: Discharged to home or Selfcare documented as of this encounter Procedures Procedure Name Priority Date/Time Associated Diagnosis Comments URINALYSIS REFLEX IF INDICATED BY ABNORMAL RESULTS Routine 06/05/2020 4:45 PM PRODUCTION QUALITY ANALYST Frequency of micturition documented in this encounter Results * (ABNORMAL) URINALYSIS REFLEX IF INDICATED BY ABNORMAL RESULTS (06/05/2020 4:45 PM PRODUCTION QUALITY ANALYST) SPECIFIC GRAVITY 1.020 1.003 - 1.030 06/05/2020 5:19 PM PRODUCTION QUALITY ANALYST [facility] URINE PH 5.0 5.0 - 9.0 06/05/2020 5:19 PM PRODUCTION QUALITY ANALYST [facility] WBC ESTERASE Negative Negative 06/05/2020 5:19 PM PRODUCTION QUALITY ANALYST [facility] NITRITE Negative Negative 06/05/2020 5:19 PM PRODUCTION QUALITY ANALYST [facility] PROTEIN, RANDOM URINE Negative Negative 06/05/2020 5:19 PM PRODUCTION QUALITY ANALYST [facility] URINE GLUCOSE, QUAL Negative Negative 06/05/2020 5:19 PM PRODUCTION QUALITY ANALYST [facility] URINE KETONES Negative Negative 06/05/2020 5:19 PM PRODUCTION QUALITY ANALYST [facility] UROBILINOGEN Normal Normal mg/dL 06/05/2020 5:19 PM PRODUCTION QUALITY ANALYST [facility] URINE BILIRUBIN Negative Negative 5:19 PM PRODUCTION QUALITY ANALYST [facility] URINE BLOOD 25 /uL(A) Negative leandro/ul 06/05/2020 5:19 PM PRODUCTION QUALITY ANALYST [facility] URINALYSIS COLOR Yellow 06/05/19 5:19 PM PRODUCTION QUALITY ANALYST [facility] URINALYSIS CLARITY Clear 06/05/2020 5:19 PM PRODUCTION QUALITY ANALYST [facility] WBC (Urine) 0-5 Negative, 0-5 /hpf 06/05/2020 5:19 PM PRODUCTION QUALITY ANALYST [facility] URINE RBC'S 3-5(A) Negative, 0-2 /hpf 06/05/2020 5:19 PM PRODUCTION QUALITY ANALYST [facility] EPITHELIAL CELLS Small amount /lpf 2020 5:19 PM PRODUCTION QUALITY ANALYST [facility] BACTERIA, URINE Few(A) Negative /hpf 06/05/2020 5:19 PM PRODUCTION QUALITY ANALYST [facility] Urine URINE SPECIMEN / Unknown Non-Phlebotomy Collection / Unknown 06/05/2020 4:45 PM PRODUCTION QUALITY ANALYST 06/05/2020 5:00 PM PRODUCTION QUALITY ANALYST us Pili Elkins MECHANICAL INSPECTOR, LOG RIDER URINE ORDERABLES Fin al Result [facility] #1 [place] [address] documented in this encounter Visit Diagnoses Diagnosis Frequency of micturition Urinary frequency documented in this encounter Additional Health Concerns Infection Onset Date Last Indicated Resolved Time COVID - 19 08/01/2024 08/01/2024 08/01/2024 3:20 PM CDT Assessment Noted Time PHQ-9 Depression Total Score: 0 09/08/19 19 1:00 PM CDT documented as of this encounter Care Teams Scientific Technical Writer Relationship Specialty Start Date End Date Justen Gale MD #2 [facility] [address] [place] [address] PCP - General Family Medicine 10/17/17 David Roberts, MECHANICAL INSPECTOR, LOG RIDER #2 [place] [address] Nurse Practitioner Advanced Practice Nurse 01/31/22 Annel Rod MD #2 [facility] [address] [place] [address] Consulting Physician Endocrinology 07/01/22 documented as of this encounter
--- OUTSIDE RECORDS SUMMARY | 2024-08-13 22:40 | XMS_ITS ---
Author Organization [facility] Address [address] [place] [address] Care Team Providers Care External Auditor Name Role Phone Justen Gale MD Primary Care Provider [phone] Active Problems Problem Noted Date Diagnosed Date [...]
--- OUTSIDE RECORDS SUMMARY | 2024-08-13 22:40 | XMS_ITS | Clinical Summary ---
Author Organization [facility] Address [address] [place] [address] Phone Care Team Providers Care Water Purifier Operator Name Role Phone Justen Gale MD Primary Care Provider [phone] Allergies Active Allergy Reactions Criticality Noted Date [...] - 6.0 % 09/29/2017 10:28 AM CDT [employer] [facility] EST. AVG GLUCOSE, A1C 186 mg/dL 09/29/2017 10:28 AM CDT [employer] [facility] Blood Venipuncture / Unknown 09/28/2017 8:41 PM CDT 09/28/2017 8:46 PM CDT Narrative [facility] - 09/29/2017 10:28 AM CDT HGB A1C INTERPRETATION NORMAL: <5.7% PRE-DIABETES: 5.7 - 6.4% DIABETES: 6.5% OR GREATER us Francisco Castaneda MD CHEMISTRY ORDERABLES Final Resul t [facility] [employer] [facility]# [id number] [address] [facility] [place] [address] * (ABNORMAL) LIPID PANEL (09/28/2017 8:41 PM CDT) CHOLESTEROL 174 <200 mg/dL 09/30/2017 2:45 AM CDT [facility] [employer] [facility] TRIGLYCERIDE 109 <150 mg/dL 09/30/2017 2:45 AM CDT [facility] [employer] [facility] HDL 45 40 - 59 mg/dL 09/30/2017 2:45 AM CDT [facility] [employer] [facility] LDL CALCULATED 107(H) <100 mg/dL 09/30/2017 2:45 AM CDT [facility] [employer] [facility] NON-HDL CHOLESTEROL 129 <130 mg/dL 09/30/2017 2:45 AM CDT [facility] [employer] [facility] Blood Venipuncture / Unknown 09/28/2017 8:41 PM CDT 09/28/2017 8:46 PM CDT Narrative [facility] - 09/30/2017 2:45 AM CDT TOTAL [...] Castaneda MD CHEMISTRY ORDERABLES Final Resul t [facility] [employer] [facility] [id number] [address] [facility] [place] [address] from Last 3 Months or Most Recently Relevant to Health Maintenance Insurance Advance Directives For more information, please contact: [phone] * Full Code (Latest Code Status on File) Date Activated Date Inactivated Comments 09/29/2017 7:45 AM 09/30/2017 9:14 PM * Full Code Date Activated Date Inactivated Comments 09/29/2017 1:25 AM 09/29/2017 7:45 AM Care Teams Water Purifier Operator Relationship Specialty Start Date End Date Justen Gale MD [address] [facility] [address] [place] [address] PCP - General Cardiovascular Disease 09/14/17
--- OUTSIDE RECORDS SUMMARY | 2024-08-13 22:40 | XMS_ITS | Encounter Summary ---
Author Organization [facility] Address [address] [place] [address] Phone Care Team Providers Care Kennel Manager Dog Track Name Role Phone Justen Gale MD Primary Care Provider [phone] David Roberts APRN, PICKER/PULLER Unavailable [phone] Annel Rod MD Unavailable Reason for Visit * Reason Comments Medication Refill Encounter Details Date Type Department Care Team (Late st Contact Info) Description 07/12/2022 Refill [facility] #2 [place] [address] Justen Gale MD #[address] [address] Medication Refill Social History Tobacco Use Types [...] 07/05/22 Office Visit Pili Elkins APRN, NETTA [facility] [place] 05/02/22 Office Visit Justen Gale MD [facility] 03/03/22 Office Visit Pili Elkins APRN, PICKER/PULLER [facility] [place] 01/03/22 Office Visit Dannielle Berg PAC [facility] [place] 12/07/21 Office Visit Pili Elkins APRN, NETTA [facility] [place] 11/09/21 Office Visit Pili Elkins APRN, NETTA [facility] [place] 10/08/21 Office Visit Angelito Alegria APRN, NETTA [facility] [place] 08/30/21 Office Visit [facility] visits within past 365 [...] Group - Endocrinology [facility] #2 [place] [address] Annel Rod MD #[address] [address] 09/24/2024 2:00 PM CDT [facility] 1 [place] [address] Angelito Alegria APRN, PICKER/PULLER #[address] [address] Discharge Disposition: Discharged to home or Selfcare documented as of this encounter Visit Diagnoses Not on filedocumented in this encounter Additional Health Concerns Infection Onset Date Last Indicated Resolved Time COVID - 19 08/01/2024 08/01/2024 08/01/2024 3:20 PM CDT Assessment Noted Time PHQ-9 Depression Total Score: 0 07/21/19 3:00 PM CDT documented as of this encounter Care Teams Kennel Manager Dog Track Relationship Specialty Start Date End Date Justen Gale MD #[address] [address] PCP - General Family Medicine 10/17/17 David Roberts APRN, PICKER/PULLER #2 [place] [address] Nurse Practitioner Advanced Practice Nurse 01/31/22 Annel Rod MD #[address] [address] Consulting Physician Endocrinology 07/01/22 documented as of this encounter
--- OUTSIDE RECORDS SUMMARY | 2024-08-13 22:40 | XMS_ITS | Encounter Summary ---
Author Organization [facility] Address [address] [place] [address] Phone Care Team Providers Care Supervisor Lace Tearing Name Role Phone Justen Gale MD Primary Care Provider [phone] David Roberts APRN, JEWEL INSERTER Unavailable [phone] Annel Rod MD Unavailable Reason for Visit * Reason Comments Medication Refill Encounter Details Date Type Department Care Team (Late st Contact Info) Description 03/05/2023 Refill [facility] #2 [place] [address] Pili Elkins APRN, JEWEL INSERTER #[address] [address] Medication Refill Social History Tobacco [...] discontinued on 10/19/2022 by Justen Gale MD AL CEO documented in this encounter Plan of Treatment Upcoming Encounters Date Type Department Care Team (Late st Contact Info) Description 09/18/2024 2:45 PM CDT Office Visit [facility] End[facility] - [place] #2 [place] [address] Annel Rod MD #2 [facility] [address] [place] [address] 09/24/2024 2:00 PM CDT [facility] 1 [place] [address] Angelito Alegria APRN, JEWEL INSERTER #2 [facility] [address] [place] [address] Discharge Disposition: Discharged to home or Selfcare [...] as of this encounter Care Teams Supervisor Lace Tearing Relationship Specialty Start Date End Date Justen Gale MD #2 [facility] [address] [place] [address] PCP - General Family Medicine 10/17/17 David Roberts APRN, NETTA #2 [place] [address] Nurse Practitioner Advanced Practice Nurse 01/31/22 Annel Rod MD #2 [facility] [address] [place] [address] Consulting Physician Endocrinology 07/01/22 documented as of this encounter
--- OUTSIDE RECORDS SUMMARY | 2024-08-13 22:40 | XMS_ITS | Encounter Summary ---
Author Organization [facility] Address [address] [place] [address] Phone Care Team Providers Care Receptionist Telephone Operator Name Role Phone Justen Gale MD Primary Care Provider [phone] David Roberts APRN, BOOK SOLICITOR Unavailable [phone] Annel oRd MD Unavailable Reason for Visit * Reason Comments Medication Refill Encounter Details Date Type Department Care Team (Late st Contact Info) Description 02/17/2021 Refill [facility] Family [facility] #2 [place] [address] Justen Gale MD #[address] [address] Medication Refill Social History Tobacco Use Types [...] Mcge[place] 06/05/20 Office Visit Pili Elkins APRN, BOOK SOLICITOR [facility] Showing recent visits within past 365 days and meeting all other requirements Future Appointments Date Type Provider Dept 03/02/21 Appointment Vince Hermosillo MD [facility] Showing future appointments within next 90 days and meeting all other requirements documented in this encounter Plan of Treatment Upcoming Encounters Date Type Department Care Team (Late st Contact Info) Description 09/18/2024 2:45 PM CDT Office Visit [facility] #2 [place] [address] Annel Rod MD #2 [facility] [address] [place] [address] 09/24/2024 2:00 PM CDT Appointment [facility] Cardiology Services 1 [place] [address] Angelito Alegria, CONSTRUCTION PROJECT MGR, BOOK SOLICITOR #2 [facility] [address] [place] [address] Discharge Disposition: Discharged to home or Selfcare documented as of this encounter Visit Diagnoses Not on filedocumented in this encounter Additional Health Concerns Infection Onset Date Last Indicated Resolved Time COVID - 19 08/01/2024 08/01/2024 08/01/2024 3:20 PM CDT Assessment Noted Time PHQ-9 Depression Total Score: 0 07/21/19 3:00 PM CDT documented as of this encounter Care Teams Receptionist Telephone Operator Relationship Specialty Start Date End Date Justen Gale MD #[address] [address] PCP - General Family Medicine 10/17/17 David Roberts CONSTRUCTION PROJECT MGR, BOOK SOLICITOR #2 [place] [address] Nurse Practitioner Advanced Practice Nurse 01/31/22 Annel Rod MD #[address] [address] Consulting Physician Endocrinology 07/01/22 documented as of this encounter
--- OUTSIDE RECORDS SUMMARY | 2024-08-13 22:41 | XMS_ITS | Encounter Summary ---
Author Organization [facility] Address [address] [place] [address] Phone Care Team Providers Care Percussion Tuner Name Role Phone Justen Gale MD Primary Care Provider [phone] David Roberts APRN, ELECTRICAL ELECTRONICS ENGINEERS Unavailable [phone] Annel Rod MD Unavailable Reason for Visit * Reason Comments Medication Refill Encounter Details Date Type Department Care Team (Late st Contact Info) Description 09/30/2023 Refill [facility] - [place] #2 [place] [address] Annel Rod MD #[address] [address] Medication Refill Social History Tobacco [...] Description 09/18/2024 2:45 PM CDT Office Visit [facility] Medical Group - Endocrinology [facility] #2 [place] [address] Annel Rod MD #[address] [address] 09/24/2024 2:00 PM CDT [facility] 1 [place] [address] Angelito Alegria APRN, NETTA #[address] [address] Discharge Disposition: Discharged to home or Selfcare documented as of this encounter Visit Diagnoses Not on filedocumented in this encounter Additional Health Concerns Infection Onset Date Last Indicated Resolved Time COVID - 19 08/01/2024 08/01/2024 08/01/2024 3:20 PM CDT Assessment Noted Time PHQ-9 Depression Total Score: 8 01/18/20 23 2:24 PM CDT documented as of this encounter Care Teams Percussion Tuner Relationship Specialty Start Date End Date Justen Gale MD #[address] [place] [address] PCP - General Family Medicine 10/17/17 David Roberts APRN, ELECTRICAL ELECTRONICS ENGINEERS #2 [place] [address] Nurse Practitioner Advanced Practice Nurse 01/31/22 Annel Rod MD #[address] [address] Consulting Physician Endocrinology 07/01/22 documented as of this encounter
--- OUTSIDE RECORDS SUMMARY | 2024-08-13 22:41 | XMS_ITS | Encounter Summary ---
Author Organization [facility] Address [address] [place] [address] Phone Care Team Providers Care Pediatric Dietician Name Role Phone Justen Gale MD Primary Care Provider [phone] David Roberts APRN, AIR PURIFIER SERVICER Unavailable [phone] Annel Rod MD Unavailable Reason for Visit * Reason Comments Medication Refill Encounter Details Date Type Department Care Team (Late st Contact Info) Description 08/07/2023 Refill [facility]ology - [place] #2 [place] [address] Annel Rod MD #[address] [address] Medication Refill Social History Tobacco [...] Description 09/18/2024 2:45 PM CDT Office Visit [facility] Group - Endocrinology [facility] #2 [place] [address] Annel Rod MD #[address] [address] 09/24/2024 2:00 PM CDT [facility] 1 [place] [address] Angelito Alegria APRN, NETTA #[address] [address] Discharge Disposition: Discharged to home or Selfcare documented as of this encounter Visit Diagnoses Not on filedocumented in this encounter Additional Health Concerns Infection Onset Date Last Indicated Resolved Time COVID - 19 08/01/2024 08/01/2024 08/01/2024 3:20 PM CDT Assessment Noted Time PHQ-9 Depression Total Score: 8 01/18/20 23 2:24 PM CDT documented as of this encounter Care Teams Pediatric Dietician Relationship Specialty Start Date End Date Justen Gale MD #[address] [place] [address] PCP - General Family Medicine 10/17/17 David Roberts APRN, AIR PURIFIER SERVICER #2 [place] [address] Nurse Practitioner Advanced Practice Nurse 01/31/22 Annel Rod MD #[address] [address] Consulting Physician Endocrinology 07/01/22 documented as of this encounter
--- OUTSIDE RECORDS SUMMARY | 2024-08-13 22:41 | XMS_ITS | Clinical Summary ---
Author Organization [facility] Address [address] [place] [address] Phone Care Team Providers Care Macerator Operator Name Role Phone Justen Gale MD Primary Care Provider [phone] David Roberts APRN, ART GLASS DESIGNER Unavailable [phone] Annel Rod MD Unavailable Allergies Active Allergy [...] Sensor (FreeStyle Eileen 2 Sensor) [facility] [place] S[place]OR AND [...] Tablet by mouth. 12/28/19 24 Active Multiple Vitamins-Oven Worker als (WOMENS MULTI PO) Take by mouth. [...] Sensor (FreeStyle Eileen 2 Sensor[place] [facility] [place] Each by Does not apply route every 14 days. Change sensor every 14 days. E11.42, insulin dependent 6 Each 1 04/25/19 25 Active Continuous Glucose Sensor (FreeStyle Eileen 2 Sensor) [facility] [place] Each by Does [...] taking until cleared by PCP office or senior data warehouse architect. Will need to taper off slowly. Indications: [...] Sensor (FreeStyle Eileen 2 Sensor) [facility] [place] 1 SENSOR AND [...] Overview: Added automatically from request for surgery [id number] Lymphedema of left upper extremity 08/09/2016 Pulmonary embolism 08/09/2016 Overview (11/09/2017): Last Assessment & Plan: On Rivaroxaban Arthralgia of ankle 01/26/2015 Cellulitis of breast 11/11/2014 Encounters Date Type Department Care Team Description 08/13/2024 Nurse Triage [facility] [address] [place] [address] Justen Gale MD High Blood Sugar 08/07/2024 9:20 AM CDT Lab [facility] [address] [phone] [facility]/Ancillary Body aches; Diffuse arthralgia Discharge Disposition: Discharged to home or Selfcare 08/07/2024 8:30 AM CDT Office Visit [facility] [address] [place] [phone] Angelito Alegria APRN, NETTA Diffuse arthralgia (Primary Dx); Dyspnea on exertion; Type 2 diabetes mellitus with diabetic polyneuropathy, with long-term current use of insulin (HCC) Discharge Disposition: Discharged to home or Selfcare 08/07/2024 Results Follow-Up [facility] [address] [place] [phone] Angelito Alegria APRN, NETTA CREATINE KINASE (CK) TOTAL, ERYTHROCYTE SEDIMENTATION RATE (ESR), C-REACTIVE PROTEIN (CRP) QUANT 08/07/2024 Nurse Triage [facility] Call [facility] [address] [place] [phone] Justen Gale MD Breathing Problem; Muscle Pain 08/06/2024 Travel 08/05/2024 MyChart RX Renewal [facility] Endocrinology [facility] #2 [place] [phone] Annel Rod MD Medication Renewal Reviewed 08/05/2024 Nurse Triage [facility] [address] [place] [phone] Justen Gale MD Muscle Pain; Follow-up 08/03/2024 3:36 AM CDT - 08/03/2024 7:05 AM CDT Emergency [facility] Emergency [address] [place] [phone] Sergio Rivera MD Myalgia Discharge Disposition: Discharged to home or Selfcare 08/02/2024 Travel 08/02/2024 [facility] [address] [place] [phone] Justen Gale MD Hemoptysis 08/02/2024 Telephone [facility] [address] [place] [address] Justen Gale MD Results 08/02/2024 Telephone [facility] [address] [place] [address] Angelito Alegria APRN, ART GLASS DESIGNER Results 08/02/2024 MyChart RX Renewal [facility] [address] [place] [address] Annel Rod MD Medication Renewal Reviewed 08/01/2024 2:13 PM CDT - 08/01/2024 4:16 PM CDT Emergency [facility] Emergency [address] [place] [phone] Jack Leiva MD Dyspnea on exertion Discharge Disposition: Discharged to home or Selfcare 08/01/2024 1:15 PM CDT Office Visit [facility] [address] [place] [address] Angelito Alegria APRN, ART GLASS DESIGNER Body aches (Primary Dx) Discharge Disposition: Discharged to home or Selfcare 08/01/2024 Travel 08/01/2024 Nurse Triage [facility] [address] [place] [address] Justen Gale MD Pain 07/22/2024 Telephone [facility] [address] [place] [phone] Justen Gale MD Appointment 07/11/2024 Nurse Triage [facility] Call [facility] [address] [place] [address] Justen Gale MD Toe Problem 06/14/2024 [facility] [address] [place] [phone] Justen Gale MD Urinary Incontinence; Urinary Problem 05/28/2024 [facility] [address] [place] [phone] Justen Gale MD Nausea; Fatigue from Last 3 Months Immunizations Immunization Administration Dates Next Due Covid-19 Vaccine, Vector-nr, Rs-ad26, Pf, 0.5 Ml ([employer]) 06/29/2020 Influenza Vaccine greater than 3 yrs [...] drink = 0.6 oz pur e alcohol) [facility] Utilities Answer Date Recorded In the past 12 months has [employer], gas, oil, or water company threatened to [...] you attend chur ch or restorationist services? More than 4 times per year [...] Total Score - Questions 1-9 0 07/23 [facility] of Occupat ional [facility] - Occupational Stress Questionnaire Answer Date Recorded [...] in the past [address] [facility], were you homeless or living in a intermediate (including now)? No 08/06/2024 Education Answer Date [...] - Endocrinology - [facility] [address] [place] [address] Annel Rod MD [address] [phone] 09/24/2024 2:00 PM CDT Appointment [facility] Services [address] [place] [phone] Angelito Alegria, ASIC VERIFICATION ENGINEER, ART GLASS DESIGNER [address] [place] [address] Discharge Disposition: Discharged to home or Selfcare [...] CT - ABDOMEN/PELVIS 06/21/2024 1 2:00 AM CODING VALIDATOR XR - LOWER EXTREMITY 06/20/2024 12:00 AM CODING VALIDATOR PAIN CONSULT 05/20/2024 12:00 AM CODING VALIDATOR XR - CHEST 05/15/2024 12:00 AM CODING VALIDATOR HEMOGLOBIN, A1C 10/02/2023 12:00 AM CDT HUMAN PAPILLOMA VIRUS (HPV) Routine 07/05/2022 2:24 PM CDT Encounter for gynecological examination with abnormal finding Encounter for screening for human papillomavirus (HPV) PATHOLOGY CYTOLOGY NETWORK SUPPORT ANALYST Routine 07/05/2022 2:24 PM CDT Encounter for [...] <30 mm/h 08/07/2024 12:34 PM CDT [facility] Comment: Patients presenting with increased level of fibrinogen, gamma globulins, or abnormally shaped RBCs could affect the results for the erythrocyte sedimentation rate (ESR). Results should be clinically correlated. Blood Venipuncture / Unknown 08/07/2024 8:59 AM CDT 08/07/2024 8:59 AM CDT us Angelito Alegria APRN, NETTA HEMATOLOGY ORDER CHAPARRO Final Result [facility] [address] [place] [address] * CREATINE KINASE (CK) TOTAL (08/07/2024 8:59 AM CDT) Only the most recent of2 resultswithin the time period is included. CK (CPK) 151 29 - 168 U/L 08/07/2024 1:08 PM CDT [facility] Blood Venipuncture / Unknown 08/07/2024 8:59 AM CDT 08/07/2024 8:59 AM CDT Angelito Alegria APRN, CNP HEMATOLOGY ORDER CHAPARRO Final Result Performing Organization Address City/[facility] Co de Phone Number [facility] [address] [place] [address] * (ABNORMAL) C-REACTIVE PROTEIN (CRP) QUANT (08/07/2024 8:59 AM CDT) Only the most recent of2 resultswithin the time period is included. C-REACTIVE PROTEIN 1.21(H) <0.50 mg/dL 08/07/2024 12:54 PM CDT [facility] Blood Venipuncture / Unknown 08/07/2024 8:59 AM CDT 08/07/2024 8:59 AM CDT Angelito Alegria APRN, CNP CHEMISTRY ORDERA BLES Final Result Performing Organization Address [facility] de Phone Number [facility] [address] [place] [address] * (ABNORMAL) POCT GLUCOSE (08/07/2024 8:31 AM [...] signed by Sen DENSON: JANIYA Report ID: [id number] Reading Location: [id number] Procedure Note Dillon Sy MD - 08/03/2024 [...] Sen Sy M.D. JANIYA: JANIYA Report ID: [id number] Reading Location: [id number] IMPRESSION: Negative right hip. Sergio Rivera MD [facility] DIAGNOSTIC ORDERABLES Final Result * XR CHEST [...] signed by Patrick STOCKTON: KATH Report ID: [id number] Reading Location: [id number] Procedure Note Patrick Zhou MD - 08/03/2024 [...] signed by Patrick STOCKTON: KATH Report ID: [id number] Reading Location: [id number] IMPRESSION: Mild bilateral infiltrates are suspected superimposed on chronic lung changes. Sergio Rivera MD IM DIAGNOSTIC ORDERABLES Final Result * CBC with Auto Differential (08/02/2024 11:21 PM CDT) Only the most recent of2 resultswithin the time period is included. WBC 9.26 4.00 - 12.00 10(3)/mcL 08/03/2024 12:08 AM CDT [facility] RBC 4.62 3.80 - 5.30 10(6)/mcL 08/03/2024 12:08 AM CDT [facility] HEMOGLOBIN (HGB) 13.5 12.0 - 15.8 g/dL 08/03/2024 12:08 AM CDT [facility] HEMATOCRIT (HCT) 42.9 36.0 - 47.0 % 08/03/2024 12:08 AM CDT [facility] MCV 92.9 82.0 - 96.0 fL 08/03/2024 12:08 AM CDT [facility] MCH 29.2 26.0 - 34.0 pg 08/03/2024 12:08 AM CDT [facility] MCHC 31.5 31.0 - 36.0 g/dL 08/03/2024 12:08 AM CDT [facility] PLATELET COUNT 272 140 - 440 10(3)/mcL 08/03/2024 12:08 AM CDT [facility] RDW 12.8 11.8 - 15.5 % 08/03/2024 12:08 AM CDT [facility] MPV 10.2 9.7 - 12.4 fL 08/03/2024 12:08 AM CDT [facility] NEUTROPHILS 62.5 47.0 - 73.0 % 08/03/2024 12:08 AM CDT [facility] LYMPHOCYTES 27.1 18.0 - 42.0 % 08/03/2024 12:08 AM CDT [facility] MONOCYTES 7.1 4.0 - 12.0 % 08/03/2024 12:08 AM CDT [facility] EOSINOPHILS 3.0 0.0 - 5.0 % 08/03/2024 12:08 AM CDT [facility] BASOPHILS 0.3 0.0 - 1.0 % 08/03/2024 12:08 AM CDT [facility] ABSOLUTE NEUTROPHILS 5.78 1.60 - 7.70 10(3)/[facility] 08/03/2024 12:08 AM CDT [facility] ABSOLUTE LYMPHOCYTES 2.51 1.30 - 3.20 10(3)/[facility] 08/03/2024 12:08 AM CDT [facility] ABSOLUTE MONOCYTES 0.66 0.20 - 1.00 10(3)/[facility] 08/03/2024 12:08 AM CDT [facility] ABSOLUTE EOSINOPHIL 0.28 0.00 - 0.40 10(3)/[facility] 08/03/2024 12:08 AM CDT [facility] ABSOLUTE BASOPHILS 0.03 0.00 - 0.10 10(3)/[facility] 08/03/2024 12:08 AM CDT [facility] NRBC PER 100 WBC 0 08/04/19 25 12:08 AM CDT [facility] Blood Venipuncture / Unknown 08/02/2024 11:21 PM CDT 08/03/2024 12:05 AM CDT us Sergio Rivera MD HEMATOLOGY ORDERABLES Final Resu lt [facility] [address] [place] [address] * (ABNORMAL) CMP (Comprehensive Metabolic Panel) (08/02/2024 11:21 PM CDT) Only the most recent of2 resultswithin the time period is included. SODIUM 138 136 - 145 mmol/L 08/03/2024 12:29 AM CDT [facility] POTASSIUM 4.4 3.5 - 5.1 mmol/L 08/03/2024 12:29 AM T [facility] CHLORIDE 104 98 - 107 mmol/L 08/03/2024 12:29 AM [facility] CO2, VENOUS 26 22 - 30 mmol/L 08/03/2024 12:29 AM T [facility] ANION GAP 12.4 <18.0 mmol/L 08/03/2024 12:29 AM T [facility] GLUCOSE 353(H) 70 - 99 mg/dL 08/03/2024 12:29 AM T [facility] BUN 18 10 - 20 mg/dL 08/03/2024 12:29 AM [facility] CREATININE, BLOOD 0.80 0.60 - 1.00 mg/dL 08/03/2024 12:29 AM [facility] BUN/CREATININE RATIO 23(H) 12 - 20 ratio 08/03/2024 12:29 AM T [facility] TOTAL PROTEIN 8.4(H) 6.0 - 8.0 g/dL 08/03/2024 12:29 AM [facility] ALBUMIN 3.8 3.5 - 5.0 g/dL 08/03/2024 12:29 AM [facility] A/G RATIO 0.8(L) 1.0 - 2.2 08/03/2024 12:29 AM T [facility] CALCIUM 10.0 8.7 - 10.5 mg/dL 08/03/2024 12:29 AM T [facility] T BILI 0.4 0.2 - 1.2 mg/dL 08/03/2024 12:29 AM T [facility] SGOT (AST) 23 <43 U/L 08/03/2024 12:29 AM T [facility] SGPT (ALT) 22 <56 U/L 08/03/2024 12:29 AM T [facility] ALKALINE PHOSPHATASE 67 40 - 150 U/L 08/03/2024 12:29 AM CDT [facility] GFR, ESTIMATED >60 >=60 08/03/2024 12:29 AM CDT [facility] Comment: Creatinine Clearance is the preferred criteria for selecting drug dose adjustments in renally impaired patients. The GFR is provided as additional pertinent clinical information. GFR is reported in mL/min/1.73 sq m. Calculation based on the Chronic Kidney Disease Epidemiology Collaboration (CKD- EPI) equation refit without adjustment for race. GFR, EST. >60 >=60 025 12:29 AM CDT [facility] GFR, EST. NONAFRICAN >60 >=60 08/03/2024 12:29 AM CDT [facility] Blood Venipuncture / Unknown 08/02/2024 11:21 PM CDT 08/03/2024 12:05 AM CDT us Sergio Rivera MD CHEMISTRY ORDERABLES Final Resul t [facility] [address] [place] [address] * TROPONIN I, HIGH SENSITIVITY (HSTRP) (08/01/2024 2:48 PM CDT) Pathologist [facility] TROPONIN I, HIGH SENSITIVITY- [place] 4 <=14 ng/L 08/01/2024 3:45 PM CDT [facility] Comment: High-sensitivity troponin I results are reported in ng/L making the result appear to be 1,000 times higher than the contemporary troponin I value which is reported in ng/ml. Results from [place]. Blood Venipuncture / Unknown 08/01/2024 2:48 PM CDT 08/01/2024 3:08 PM CDT us Jack Leiva MD CHEMISTRY ORDERABLES Deann l Result [facility] [address] [place] [address] * Gold Top Tube (08/01/2024 2:48 PM CDT) Blood No Phlebotomy Charged / Unknown 08/01/2024 2:48 PM CDT 08/01/2024 3:12 PM CDT Jack Leiva MD CHEMISTRY ORDERABLES Deann l Result Performing Organization Address City/[facility] Co de Phone Number [facility] [place] [address] * Blue Top Tube (08/01/2024 2:48 PM CDT) Blood No Phlebotomy Charged / Unknown 08/01/2024 2:48 PM CDT 08/01/2024 3:12 PM CDT Jack Leiva MD HEMATOLOGY ORDERABLES Fin al Result Performing Organization Address [facility] Co de Phone Number [facility] [address] [place] [address] * Magnesium (08/01/2024 2:48 PM CDT) Pathologist [facility] MAGNESIUM 1.6 1.6 - 2.6 mg/dL 08/01/2024 3:39 PM CDT [facility] Blood Venipuncture / Unknown 08/01/2024 2:48 PM CDT 08/01/2024 3:08 PM CDT Jack Leiva MD CHEMISTRY ORDERABLES Deann l Result Performing Organization Address City/[facility] Co de Phone Number [facility] [address] [place] [address] * B-Type Natriuretic Peptide (BNP) (08/01/2024 2:48 PM CDT) B TYPE NATRIURETIC PEPTIDE 23 <100 pg/mL 08/01/2024 3:37 PM CDT [facility] Blood Venipuncture / Unknown 08/01/2024 2:48 PM CDT 08/01/2024 3:08 PM CDT us Jack Leiva MD CHEMISTRY ORDERABLES Deann l Result Performing Organization Address [facility] Co de Phone Number [facility] [address] [place] [address] * EKG 12 LEAD (08/01/2024 2:41 PM CDT) Ventricular Rate 75 BPM EXTERNAL EKG Atrial Rate 75 BPM EXTERNAL EKG P-R Interval 134 ms EXTERNAL EKG QRS Duration 82 ms EXTERNAL EKG Q-T Duration 380 ms EXTERNAL EKG QTC CALCULATION 424 ms EXTERNAL EKG P [place] -77 degrees EXTERNAL EKG R [place] 28 degrees EXTERNAL EKG T [place] 53 degrees EXTERNAL EKG 08/01/2024 2:41 PM CDT Impressions EXTERNAL EKG - 08/04/2024 12:00 PM CDT Atrial-sensed ventricular-paced rhythm Abnormal ECG No previous ECGs available Confirmed by Maryann Clay ([id number]) on 08/04/2024 11:59:59 AM Narrative Procedure Note Maryann Clay MD - 08/04/2024 IMPRESSION: Atrial-sensed ventricular-paced rhythm Abnormal ECG No previous ECGs available Confirmed by Maryann Clay ([id number]) on 08/04/2024 11:59:59 AM us Jack Leiva MD IMG ECG ORDERABLES Final Result Performing Organization Address City/[facility]/ZIP Co de Phone Number EXTERNAL EKG [...] Romelia Bowen D.O. PS: PS Report ID: [id number] Reading Location: [place] [address] Procedure Note Romelia Bowen DO - 08/01/2024 [...] Romelia Bowen D.O. PS: PS Report ID: [id number] Reading Location: [id number] IMPRESSION: Patchy left basilar airspace opacities, which may be related to subsegmental atelectasis/scarring versus developing airspace disease. Jack Leiva MD IMG DIAGNOSTIC ORDERABLES Final Result * RSV,SARS-COV-2,INFLUENZA A&B BY PCR (08/01/2024 2:28 PM CDT) FLU A Negative Negative, Error 08/01/2024 3:20 PM CDT [facility] FLU B Negative Negative 08/01/2024 3:20 PM CDT [facility] RESP SYNC VIRUS Negative Negative 3:20 PM CDT [facility] SARSCOV2 NOT DETECTED (Reference Range for this test is Not Detected) 08/01/2024 3:20 PM CDT [facility] Comment:This test was perfor med by a Reverse Validation Leader PCR Method. Swab NASOPHARYNGEAL STRUCTURE / Unknown Non-Phlebotomy Collection / Unknown 08/01/2024 2:28 PM CDT 08/01/2024 2:33 PM CDT us Jack Leiva MD MICROBIOLOGY - GENERAL OR DERABLES Final Result Performing Organization Address [facility] Co de Phone Number [facility] [address] [place] [address] * EKG SCAN (08/01/2024 12:00 AM CDT) 08/01/2024 us Provider Scan IMG ECG ORDERABLES Final Result Performing Organization Address City/[facility] Co de Phone Number RESULTING AGENCY * PAIN CONSULT (07/24/2024 12:00 AM CDT) Only the most recent of2 resultswithin the time period is included. 07/24/2024 us Justen Gale MD GENERIC SCAN ORDERS CONSULT F inal Result Performing Organization Address City/[facility]/ZIP Co de Phone Number SCAN * CT - CHEST (07/22/2024 12:00 AM CDT) 07/22/2024 us Provider Scan IMG CT ORDERABLES Final Result SCAN * XR - LOWER EXTREMITY (07/10/2024 12:00 AM CDT) Only the most recent of2 resultswithin the time period is included. 07/10/2024 us Provider Scan IMG DIAGNOSTIC ORDERABLES Final Result Performing Organization Address City/[facility]/ZIP Co de Phone Number SCAN * CT - ABDOMEN/PELVIS (06/21/2024 12:00 AM CODING VALIDATOR) 06/21/2024 us Provider Scan IMG CT ORDERABLES Final Result Performing Organization Address [facility] de Phone Number SCAN * HEMOGLOBIN, A1C (10/02/2023 12:00 AM CDT) HGB-A1C 7.8 SCAN 10/02/2023 us Provider Scan CHEMISTRY ORDERABLES Final Resul t Performing Organization Address [facility] de Phone Number SCAN * PATHOLOGY CYTOLOGY NETWORK SUPPORT ANALYST (07/05/2022 2:24 PM CDT) SPECIMEN ADEQUACY A scant cellular component is noted. Scant cellularity is likely due to presence of lubricant. 07/08/2022 8:38 AM CDT [facility] DESCRIPTIVE DIAGNOSIS NEGATIVE FOR INTRAEPITHELIAL LESIONS OR MALIGNANCY. 07/08/2022 8:38 AM CDT [facility] at 0838 CDT OTHER FINDINGS Atrophic hormonal pattern. 07/08/2022 8:38 AM CDT [facility] Automated Examination This sample was not evaluated by the automated imaging and review system ([employer] System, [employer], [place], [place] due to technical and / or biologic factor(s). The case was screened, reviewed, and finalized by a keying machine operator and / or pathologist. 07/08/2022 8:38 AM CDT [facility] Disclaimer The PAP smear is a [...] unless clinically indicated. 07/08/2022 8:38 AM CDT [facility] Other CERVIX UTERI STRUCTURE / Unknown Non-Phlebotomy Collection / Unknown 07/05/2022 2:24 PM CDT 07/05/2022 2:24 PM CDT us Pili Elkins APRN, NETTA PATHOLOGY/CYTOLOGY O RDERABLES Final Result [facility] [address] [place] [address], * HUMAN PAPILLOMA VIRUS (HPV) (07/05/2022 2:24 PM CDT) HPV OTHER HIGH RISK TYPES, PCR NEGATIVE NEGATIVE 07/06/2022 2:37 PM CDT [facility] Comment: The following Other High Risk [...] 16 NEGATIVE NEGATIVE 07/06/2022 2:37 PM CDT [facility] Comment: A negative high-risk HPV result [...] 18 NEGATIVE NEGATIVE 07/06/2022 2:37 PM CDT [facility] Comment: A negative high-risk HPV result [...] OR DIAGNOSTIC SCREENING 07/06/2022 2:37 PM CDT [facility] Other Non-Phlebotomy Collection / Unknown 07/05/2022 2:24 PM CDT 07/05/2022 2:24 PM CDT Narrative [facility] - 07/06/2022 2:37 PM CDT Performed by Real-Time Polymerase Chain Reaction (PCR) on the Ronnie Vinay 4800. This assay has been validated for use with post-aliquot samples from the [employer] T5000 processor. Pili Elkins APRN, ART GLASS DESIGNER LAB SEND OUTS Deann l Result [facility] [address] [place] [address], [facility] [address] [place] [address] * HM COLONOSCOPY (01/09/2020) us Genaro Jensen DO PROCEDURE/MINOR SURGICAL ORDERA BLES Final Result * AMB REFERRAL TO PODIATRY (08/13/2019) Alvarez Mensah MD OUTPATIENT REFERRALS Final Res ult * POCT STOOL, OCCULT BLOOD, DIAGNOSTIC (09/07/2018 1:20 PM CDT) OCCULT BLOOD, STOOL Negative Negative, Other POC HEMOCULT CONTROL Strapping Machine Tender Pass 09/07/2018 1:20 PM CDT Pili Elkins ASIC VERIFICATION ENGINEER, ART GLASS DESIGNER POINT OF CARE TESTIN G (MANUAL) Final Result from Last 3 Months or Most Recently Relevant to Health Maintenance [facility] Care Teams Macerator Operator Relationship Specialty Start Date End Date Justen Gale MD [address] [address] PCP - General Family Medicine 10/17/17 David Roberts APRN, ART GLASS DESIGNER [address] [place] [address] Nurse Practitioner Advanced Practice Nurse 01/31/22 Annel Rod MD [address] [address] Consulting Physician Endocrinology 07/01/22
--- OUTSIDE RECORDS SUMMARY | 2024-08-13 22:41 | XMS_ITS | Encounter Summary ---
Author Organization [facility] Address [address] [place] [address] Phone Care Team Providers Care Sheet Finisher Name Role Phone Justen Gale MD Primary Care Provider [phone] David Roberts APRN, GIZZARD PULLER Unavailable [phone] Annel Rod MD Unavailable Reason for Visit * Reason Comments Medication Refill Encounter Details Date Type Department Care Team (Late st Contact Info) Description 04/13/2023 Refill [facility] - [place] #2 [place] [address] Annel Rod MD #[address] [address] Medication Refill Social History Tobacco [...] Jennifer Wang RN - 04/14/2023 10:00 AM CUT IN WORKER Requested Prescriptions Pending Prescriptions Disp Refills ??? Continuous Blood Gluc Sensor (FreeStyle Eileen 2 Sensor) Misc [Pharmacy Med Name: FREESTYLE EILEEN 2 SENSOR] 6 Each 1 Sig: APPLY 1 SENSOR AND WEAR FOR 14 DAYS TO CHECK BLOOD SUGAR Next appt: 05/30/2023 IN WORKER documented in this encounter Plan of Treatment Upcoming Encounters Date Type Department Care Team (Late st Contact Info) Description 09/18/2024 2:45 PM CDT Office Visit [facility] - [place] #2 [place] [address] Annel Rod MD #2 [facility] [address] [place] [address] 09/24/2024 2:00 PM CDT Appointment [facility] 1 [place] [address] Angelito Alegria, ZAMZAM, GIZZARD PULLER #2 [facility] [address] [place] [address] Discharge Disposition: Discharged to home or Selfcare documented as of this encounter Visit Diagnoses Not on filedocumented in this encounter Additional Health Concerns Infection Onset Date Last Indicated Resolved Time COVID - 19 08/01/2024 08/01/2024 08/01/2024 3:20 PM CDT Assessment Noted Time PHQ-9 Depression Total Score: 8 01/18/20 23 2:24 PM CDT documented as of this encounter Care Teams Sheet Finisher Relationship Specialty Start Date End Date Justen Gale MD #[address] [address] PCP - General Family Medicine 10/17/17 David Roberts APRN, GIZZARD PULLER #2 [place] [address] Nurse Practitioner Advanced Practice Nurse 01/31/22 Annel Rod MD #[address] [id number] Consulting Physician Endocrinology 07/01/22 documented as of this encounter
--- OUTSIDE RECORDS SUMMARY | 2024-08-13 22:41 | XMS_ITS | Encounter Summary ---
Author Organization [facility] Address [address] [place] [address] Phone Care Team Providers Care Drivers License Examiner Name Role Phone Justen Gale MD Primary Care Provider [phone] David Roberts APRN, CONSULTING DATABASE ADMINISTRATOR Unavailable [phone] Annel Rod MD Unavailable Reason for Visit * Reason Onset Date Comments Advice Only 11/21/2023 Encounter Details Date Type Department Care Team (Late st Contact Info) Description 11/21/2023 Telephone [facility] [address] [place] [address] Justen Gale MD #[address] [address] Advice Only Social History Tobacco Use Types [...] 11/21/2023 3:17 PM CDT RFC: Alejandra from [facility] is calling to state that patient is [...] Visit [facility] - [place] #2 [place] [address] Annel Rod MD #2 [facility] [address] [place] [address] 09/24/2024 2:00 PM CDT Appointment [facility] [address] [place] [address] Angelito Alegria APRN, CONSULTING DATABASE ADMINISTRATOR #2 [facility] [address] [place] [address] Discharge Disposition: Discharged to home or Selfcare documented as of this encounter Visit Diagnoses Not on filedocumented in this encounter Additional Health Concerns Infection Onset Date Last Indicated Resolved Time COVID - 19 08/01/2024 08/01/2024 08/01/2024 3:20 PM CDT Assessment Noted Time PHQ-9 Depression Total Score: 8 01/18/20 23 2:24 PM CDT documented as of this encounter Care Teams Drivers License Examiner Relationship Specialty Start Date End Date Justen Gale MD #2 [facility] [address] [place] [address] PCP - General Family Medicine 10/17/17 David Roberts APRN, NETTA #2 [place] [address] Nurse Practitioner Advanced Practice Nurse 01/31/22 Annel Rod MD #2 [facility] [address] [place] [phone] Consulting Physician Endocrinology 07/01/22 documented as of this encounter
--- OUTSIDE RECORDS SUMMARY | 2024-08-13 22:41 | XMS_ITS | Encounter Summary ---
Author Organization [facility] Address [address] [place] [address] Phone Care Team Providers Care Shop Director Name Role Phone Liu Jerez MD Unavailable [phone] Albert Corbin MD Unavailable Justen Gale MD Primary Care Provider Khris Arthur MD Unavailable [phone] Ko Melendez MD Unavailable [phone] John Paul Moyer MD Unavailable Annel Rod MD Unavailable Anali MARSHALL MD, Carlos M. Unavailable [phone] Encounter Details Date Type Department Care Team [...] file Legal Sex Female 12:24 AM CLINICAL TRIALS SPECIALIST Gender Identity Not on file Sexual [...] COVID: Recovered 02/10/2022 02/10/2022 06/10/2022 3:05 AM CLINICAL TRIALS SPECIALIST Exposure, COVID-19 Comment:Added automatically based on COVID19 lab answers indicating exposure risk 02/11/2022 02/11/2022 02/15/2022 9:06 AM C DT COVID: Suspected 05/14/2022 05/14/2022 05/14/2022 10:41 AM CLINICAL TRIALS SPECIALIST COVID: Suspected 06/07/2022 06/07/2022 06/07/2022 12:28 PM CLINICAL TRIALS SPECIALIST COVID: Suspected 06/21/2022 06/21/2022 06/21/2022 2:12 AM CLINICAL TRIALS SPECIALIST COVID: Suspected 10/05/2022 10/05/2022 10/05/2022 7:40 PM CDT COVID: Suspected 01/04/2024 01/04/2024 01/04/2024 10:30 PM CDT COVID: Suspected 02/14/2024 02/14/2024 02/15/2024 12:36 AM CDT COVID: Suspected 07/01/2024 07/01/2024 07/01/2024 2:53 PM CDT COVID: Suspected 07/01/2024 07/01/2024 07/02/2024 3:05 AM CDT documented as of this encounter Care Teams Shop Director Relationship Specialty Start Date End Date Justen Gale MD 2 [facility] [address] [place] [address] PCP - General 10/09/17 Liu Jerez MD Consulting Physician Gastroenterology 07/28/17 [place] [address] [facility] [address] [place] [address] Consulting Physician Pulmonary Disease 08/03/17 [place] [address] [place] [address] [address] [place] [address] Medical Oncologist/Showroom Salesperson Medical Oncology 10/23/17 [place] [address] [address] Surgeon Orthopedic Surgery 10/23/17 [place] [address] [facility] [address] [place] [address] Consulting Physician Pain Management 10/23/17 [place] [address] [address] Referring Physician General Surgery 01/26/18 [place] [address] [facility] [address] [place] [address] Consulting Physician Neurology 01/26/18 documented as of this encounter
[2024-08-13 22:42] LABS: Add Urine Microscopic? NO; Appearance Urine Clear (Clear); Bilirubin Urine Negative (Negative); Blood Urine Negative (Negative); Color Urine Yellow (Yellow); Glucose Urine UA 3+ mg/dL (Negative); Ketones Urine Negative (Negative); Leukocyte Esterase Ur Negative LEU/UL (Negative); Nitrate Urine Negative (Negative); Protein Urine Negative (Negative); Specific Grav Ur 1.025 (1.001-1.035); Urobilinogen Urine 0.2 mg/dL (<2.0)
[2024-08-13 22:42] LABS: Basophils Percent Auto 0.2 % (0.2-1.2); Hematocrit 40.2 % (37.0-47.0); Hemoglobin 12.7 g/dL (12.0-15.0); Immature Granulocyte Absolute 0.17 K/mm3 (0.00-0.031); Immature Granulocyte Percent A 1.4 % (0-0.5); Lymphocytes Absolute Auto 1.28 K/mm3 (0.9-3.2); Lymphocytes Percent Auto 10.2 % (18.3-44.2); Mean Corpuscular HGB Conc 31.6 g/dl (32-36); Mean Corpuscular Volume 91.8 fl (80-100); Mean Platelet Volume 9.8 fl (7.4-10.4); Monocytes Absolute Auto 0.4 K/mm3 (0.1-0.6); Monocytes Percent Auto 2.9 % (2.6-8.5); Neutrophils Absolute Auto 10.7 K/mm3 (1.3-6.7); Neutrophils Percent Auto 85.3 % (45.5-73.1); Platelet Count Result 298 k/mm3 (150-375); Red Blood Count 4.38 M/mm3 (4.2-5.4); Red Cell Distribution Width 13.2 % (11.5-14.5); White Blood Count 12.6 K/mm3 (4.5-10.0)
[2024-08-13 22:51] LABS: Alanine Aminotransferase 28 U/L (6-35); Alkaline Phosphatase 88 U/L (38-126); Anion Gap 14 mmol/L (4-12); Aspartate Amino Transferase 20 U/L (14-36); Bilirubin,Total 0.5 mg/dL (0.2-1.3); Blood Urea Nitrogen 25 mg/dL (7-17); Calcium 9.4 mg/dL (8.4-10.2); Carbon Dioxide 21 mmol/L (22-30); Chloride 99 mmol/L (98-107); Estimated CRCL calculation 74 ml/min; Estimated Glomerular Filt Rate > 60; Glucose 398 mg/dL (65-110); Potassium 4.9 mmol/L (3.4-5.0); Sodium 134 mmol/L (137-145)
--- NOTE | 2024-08-13 22:53 | ED.GENADULT ---
HPI - General Adult General Chief complaint: Recheck/Abnormal Lab/Rx Stated complaint: high BS Time Seen by Provider: 08/13/24 22:10 Source: patient Mode of arrival: ambulatory Limitations: no limitations History of Present Illness HPI narrative: This is a 69-year-old female with PMH of insulin-dependent diabetes, polymyositis who presents to the ED for chief complaint of sore throat elevated blood sugars. Patient states that she was diagnosed with strep throat 3 days ago at another facility and was placed on clindamycin. States that her blood sugars have elevated beyond 500 on her Dexcom so she is unable to tell how high they actually are at home. She was unsure of how much insulin to take due to sliding scale not including numbers above 500. States that she has also been taking daily dose of steroids due to recent diagnosis of polymyositis which she is currently undergoing initial workup and evaluation. She does feel that her voice is becoming a little more muffled and the sore throat is worsening. States she was unable to tolerate clindamycin p.o. at home due to nausea, vomiting. Related Data Home Medications ?Medication ?Instructions ?Recorded ?Confirmed ?Last Taken ?Type exemestane 25 mg tablet 25 mg PO HS 01/06/20 06/20/24 12/04/23 22:00 History insulin glargine 100 unit/mL (3 32 unit subcut QAM 01/06/20 06/20/24 12/04/23 11:00 History mL) subcutaneous pen (Lantus Solostar U-100 Insulin) ropinirole 5 mg tablet 5 mg PO HS 01/06/20 06/20/24 12/04/23 22:00 History insulin lispro 100 unit/mL 28 unit subcut TID 03/19/22 06/20/24 Unknown History subcutaneous pen (Humalog KwikPen (U-100) Insulin) oxybutynin chloride 15 mg 15 mg PO DAILY 11/06/22 06/20/24 12/04/23 11:00 History tablet,extended release 24 hr gabapentin 300 mg capsule 300 mg PO TID 06/25/23 06/20/24 12/04/23 22:00 History Allergies Allergy/AdvReac Type Severity Reaction Status Date / Time ceftriaxone Allergy Severe SOB Verified 08/13/24 21:56 cephalexin Allergy Severe Difficulty Verified 08/13/24 21:56 Breathing Cephalosporins Allergy Severe Difficulty Verified 08/13/24 21:56 Breathing lorazepam Allergy Severe Swelling Verified 08/13/24 21:56 trazodone Allergy Severe Swelling Verified 08/13/24 21:56 of Lip/Tongue/Throat metoclopramide Allergy Intermediate Other Verified 08/13/24 21:56 chlorhexidine Allergy Mild BLISTERING Verified 08/13/24 21:56 levofloxacin Allergy Mild Hives / Verified 08/13/24 21:56 Red Face ketorolac Allergy Itching Verified 08/13/24 21:56 latex Allergy Rash Verified 08/13/24 21:56 meropenem Allergy Rash Verified 08/13/24 21:56 nitrofurantoin Allergy Itching Verified 08/13/24 21:56 sulfamethoxazole (From Allergy Itching Verified 08/13/24 21:56 Sulfamethoxazole-Trimethoprim) trimethoprim (From Allergy Itching Verified 08/13/24 21:56 Sulfamethoxazole-Trimethoprim) oxycodone AdvReac Mild Vomiting Verified 08/13/24 21:56 amlodipine AdvReac Swelling Verified 08/13/24 21:56 lisinopril AdvReac Swelling Verified 08/13/24 21:56 pregabalin AdvReac Swelling Verified 08/13/24 21:56 reslizumab AdvReac Unknown Verified 08/13/24 21:56 Review of Systems Review of Systems: All systems as dictated in [facility] Past Medical History Medical History Chronic anticoagulation Overactive bladder Type 2 diabetes mellitus Deep venous thrombosis Irritable bowel syndrome Restless leg syndrome Obstructive sleep apnea on CPAP Congestive heart failure Chronic back pain COVID-19 Collagenous colitis Morbid obesity Breast cancer Depression Anxiety Peripheral neuropathy Kidney stone Pulmonary embolism positive for coagulation workup Multiple thyroid nodules Surgical History Surgical History History of umbilical hernia repair History of colonoscopy Status post insertion of spinal cord stimulator History of cystoscopy History of ureter stent History of cholecystectomy History of bilateral mastectomy History of esophagogastroduodenoscopy (EGD) History of right oophorectomy History of total right knee replacement History of cardiac catheterization Reportedly negative for coronary artery disease. Family History Family History Mother Diabetes mellitus Acute myocardial infarction Cerebrovascular accident Hypertension Congestive heart failure Father Prostate carcinoma Sibling Breast cancer Acute myocardial infarction Chronic obstructive pulmonary disease Social History Social History Social History: Surrogate medical decision maker: Jimmie Marques, spouse. Code status: Full code. Smoking packs per day: 0 Smoking cigarettes per day: 0.0 Years smoked: 2 Smoking pack-years: 0.00 Smoking status: Former smoker Second hand tobacco smoke exposure: Yes Alcohol intake: never Substance use: never Substance use type: does not use Do You Feel Safe in your Home?: Yes Lack of Transportation: No Lack of Food: Never True Current Housing: I Have Housing Concerned About Future Housing: No Difficulty Paying Gas/Electric Bills: No Difficulty Paying for Meds: No Currently Unemployed: No Education: Decline to Answer Difficulty w/ Childcare or Family Care: No Living arrangements: with family Additional occupation/education comments: Disabled. Spiritual care concerns: No Exam Narrative: GENERAL: Well-appearing, well-nourished, and in no acute distress. HEAD: Normocephalic, atraumatic. EYES: PERRLA and EOMI. ENT: Muffled voice present. There is prominent tonsillar swelling bilaterally, seems to be worse on the left. The uvula is midline. She is tolerating secretions. Airway intact. Nares clear, no rhinorrhea or epistaxis. Mucous membranes moist. NECK: Supple. No adenopathy or masses. CHEST: No respiratory distress. Clear to auscultation. No wheezes rales or rhonchi HEART: Regular rate and rhythm. No murmur heard. Normal peripheral pulses. ABDOMEN: Soft, nontender, nondistended, normal active bowel sounds. MSK: Normal range of motion. No edema. SKIN: Warm, dry, no rash. NEURO: Alert and oriented x4. No focal deficits. PSYCH: Normal mood and affect. Course Vital Signs Vital signs: Vital Signs Temperature 96.4 F L 08/13/24 21:52 Pulse Rate 85 08/13/24 21:52 Respiratory Rate 15 08/13/24 21:52 Blood Pressure 181/85 H 08/13/24 21:52 Pulse Oximetry 98 08/13/24 21:52 Oxygen Delivery Room Air 08/13/24 21:52 Temperature 98.1 F 08/14/24 00:16 Pulse Rate 74 08/14/24 00:16 Respiratory Rate 20 08/14/24 00:16 Blood Pressure 123/75 08/14/24 00:16 Pulse Oximetry 97 08/14/24 00:16 Oxygen Delivery Room Air 08/13/24 21:52 Medical Decision Making MDM Narrative Medical decision making narrative: This is a 69-year-old female who presents to the ED for chief complaint of sore throat, high blood sugars. Vitals show elevated blood pressure on arrival but otherwise normal. Blood pressure normalized after pain control Exam remarkable for the above. Blood glucose on arrival in the upper 300s. Lab work showing mildly elevated white count of 12.6, however CMP is not concerning for DKA. There is mild elevation in anion gap. She will be given 2 L of fluids, insulin, pain medications and antiemetics. CT soft tissue neck: IMPRESSION: Redemonstration of symmetric enlargement of the bilateral lingual and palatine tonsils, similar in appearance to 2023 examination. No rim-enhancing fluid collection. Inflammatory sinus disease Presentation is remarkable for bilateral tonsillitis. Patient is symptomatically greatly improved on re-evaluation. Repeat BMP shows improvement anion gap. Still not showing DKA. Patient will be stable for discharge home on previously prescribed antibiotics and instructed to keep a close eye on her blood sugars as her most recent steroid prescription will increase her sugars. Patient will be discharged in stable condition. Supportive measures discussed and return precautions given. Patient is understanding and agreeable with plan for discharge with PCP follow-up. Vital Signs Vital Signs: Vital Signs Temperature 96.4 F L 08/13/24 21:52 Pulse Rate 85 08/13/24 21:52 Respiratory Rate 15 08/13/24 21:52 Blood Pressure 181/85 H 08/13/24 21:52 Pulse Oximetry 98 08/13/24 21:52 Oxygen Delivery Room Air 08/13/24 21:52 Temperature 98.1 F 08/14/24 00:16 Pulse Rate 74 08/14/24 00:16 Respiratory Rate 20 08/14/24 00:16 Blood Pressure 123/75 08/14/24 00:16 Pulse Oximetry 97 08/14/24 00:16 Oxygen Delivery Room Air 08/13/24 21:52 Lab Data 08/13/24 22:34 08/14/24 00:37 Labs: Lab Results 08/13/24 08/13/24 08/13/24 Range/Units 21:53 22:34 22:35 WBC 12.6 H (4.5-10.0) K/mm3 RBC 4.38 (4.2-5.4) M/mm3 Hgb 12.7 (12.0-15.0) g/dL Hct 40.2 (37.0-47.0) % MCV 91.8 (80-100) fl MCH 29.0 (26-34) pg MCHC 31.6 L (32-36) g/dl RDW 13.2 (11.5-14.5) % Plt Count 298 (150-375) k/mm3 MPV 9.8 (7.4-10.4) fl Immature Gran % (Auto) 1.4 H (0-0.5) % Neut % (Auto) 85.3 H (45.5-73.1) % Lymph % (Auto) 10.2 L (18.3-44.2) % [place]illespie % (Auto) 2.9 (2.6-8.5) % Eos % (Auto) 0.0 (0-4.4) % Baso % (Auto) 0.2 (0.2-1.2) % Lymph # (Auto) 1.28 (0.9-3.2) K/mm3 [place]illespie # (Auto) 0.4 (0.1-0.6) K/mm3 Eos # (Auto) 0.0 (0-0.3) K/mm3 Baso # (Auto) 0.0 (0.0-0.1) K/mm3 Abs Immat Gran (auto) 0.17 H (0.00-0.031) K/mm3 Absolute Neuts (auto) 10.7 H (1.3-6.7) K/mm3 Absolute Nucleated RBC 0.000 (0.0-0.012) K/mm3 Nucleated RBC % 0.0 (0.0-0.2) % Sodium 134 L (137-145) mmol/L Potassium 4.9 (3.4-5.0) mmol/L Chloride 99 (98-107) mmol/L Carbon Dioxide 21 L (22-30) mmol/L Anion Gap 14 H (4-12) mmol/L BUN 25 H (7-17) mg/dL Creatinine 0.78 (0.7-1.0) mg/dL Estim Creat Clear Calc 74 ml/min Estimated GFR > 60 (59 - ) Glucose 398 H (65-110) mg/dL POC Capillary Glucose 366 H (65-105) mg/dl Calcium 9.4 (8.4-10.2) mg/dL Magnesium 1.8 (1.6-2.3) mg/dL Total Bilirubin 0.5 (0.2-1.3) mg/dL AST 20 (14-36) U/L ALT 28 (6-35) U/L Alkaline Phosphatase 88 (38-126) U/L C-Reactive Protein 2.1 H (<1.0) mg/dL Total Protein 8.0 (6.3-8.2) g/dL Albumin 4.0 (3.5-5.1) g/dL Beta-Hydroxybutyrate/Acetoacetate 0.10 (0.02-0.27) mmol/L Urine Color Yellow (Yellow) Urine Appearance Clear (Clear) Urine pH 6.0 (5.0-9.0) Ur Specific [place] 1.025 (1.001-1.035) Urine Protein Negative (Negative) mg/dL Urine Glucose (UA) 3+ H (Negative) mg/dL Urine Ketones Negative (Negative) mg/dL Ur Blood (Man) Negative (Negative) Urine Nitrate Negative (Negative) Urine Bilirubin Negative (Negative) Urine Urobilinogen 0.2 (<2.0) mg/dL Leukocyte Esterase Rfl Negative (Negative) PAO/UL 08/13/24 08/14/24 08/14/24 Range/Units 23:29 00:19 00:37 WBC (4.5-10.0) K/mm3 RBC (4.2-5.4) M/mm3 Hgb (12.0-15.0) g/dL Hct (37.0-47.0) % MCV (80-100) fl MCH (26-34) pg MCHC (32-36) g/dl RDW (11.5-14.5) % Plt Count (150-375) k/mm3 MPV (7.4-10.4) fl Immature Gran % (Auto) (0-0.5) % Neut % (Auto) (45.5-73.1) % Lymph % (Auto) (18.3-44.2) % Gillespie % (Auto) (2.6-8.5) % Eos % (Auto) (0-4.4) % Baso % (Auto) (0.2-1.2) % Lymph # (Auto) (0.9-3.2) K/mm3 [place] # (Auto) (0.1-0.6) K/mm3 Eos # (Auto) (0-0.3) K/mm3 Baso # (Auto) (0.0-0.1) K/mm3 Abs Immat Gran (auto) (0.00-0.031) K/mm3 Absolute Neuts (auto) (1.3-6.7) K/mm3 Absolute Nucleated RBC (0.0-0.012) K/mm3 Nucleated RBC % (0.0-0.2) % Sodium 133 L (137-145) mmol/L Potassium 4.7 (3.4-5.0) mmol/L Chloride 100 (98-107) mmol/L Carbon Dioxide 24 (22-30) mmol/L Anion Gap 9 (4-12) mmol/L BUN 25 H (7-17) mg/dL Creatinine 0.62 L (0.7-1.0) mg/dL Estim Creat Clear Calc 91 ml/min Estimated GFR > 60 (59 - ) Glucose 290 H (65-110) mg/dL POC Capillary Glucose 352 H 269 H (65-105) mg/dl Calcium 9.1 (8.4-10.2) mg/dL Magnesium (1.6-2.3) mg/dL Total Bilirubin (0.2-1.3) mg/dL AST (14-36) U/L ALT (6-35) U/L Alkaline Phosphatase (38-126) U/L C-Reactive Protein (<1.0) mg/dL Total Protein (6.3-8.2) g/dL Albumin (3.5-5.1) g/dL Beta-Hydroxybutyrate/Acetoacetate (0.02-0.27) mmol/L Urine Color (Yellow) Urine Appearance (Clear) Urine pH (5.0-9.0) Ur Specific [place] (1.001-1.035) Urine Protein (Negative) mg/dL Urine Glucose (UA) (Negative) mg/dL Urine Ketones (Negative) mg/dL Ur Blood (Man) (Negative) Urine Nitrate (Negative) Urine Bilirubin (Negative) Urine Urobilinogen (<2.0) mg/dL Leukocyte Esterase Rfl (Negative) PAO/UL Discharge Plan Discharge Clinical Impression: Acute tonsillitis, Hyperglycemia Patient Disposition: Home Condition: Stable Instructions: Antibiotic Form Additional Instructions: Exam and imaging today are reassuring. Please make sure that you are monitoring her blood sugars very closely and using sliding scale appropriately. Decrease sugar intake. Take antibiotics as prescribed and use Zofran as needed for nausea. If you have any new or worsening symptoms please return to the ER for further evaluation. Patient Language: Congolese Prescriptions: New ondansetron 4 mg tablet,disintegrating 4 mg PO Q8H PRN (Reason: nausea and vomiting) Qty: 10 0RF No Action gabapentin 300 mg capsule 300 mg PO TID cyclobenzaprine 10 mg tablet 10 mg PO TID PRN (Reason: muscle spasm) Qty: 20 0RF Rx Instructions: no driving or alcohol while taking this medication clindamycin HCl [Cleocin HCl] 300 mg capsule 300 mg PO Q8H 7 Days Qty: 21 0RF methylprednisolone [Medrol (Nam)] 4 mg tablets,dose pack See Rx Instructions .ROUTE .COMPLEX Qty: 21 0RF Rx Instructions: orally per package directions exemestane 25 mg tablet 25 mg PO HS ropinirole 5 mg tablet 5 mg PO HS insulin glargine [Lantus Solostar U-100 Insulin] 100 unit/mL (3 mL) insulin pen 32 unit SUBCUT QAM insulin lispro [Humalog KwikPen Insulin] 100 unit/mL insulin pen 28 unit SUBCUT TID albuterol sulfate 90 mcg/actuation HFA aerosol inhaler 1 inh inhalation QID PRN (Reason: shortness of breath or wheezing) Qty: 6.7 0RF oxybutynin chloride 15 mg tablet extended release 24hr 15 mg PO DAILY acetaminophen 325 mg Tablet 650 mg PO Q6H PRN (Reason: Pain 1-5 or Fever) Qty: 30 0RF Xarelto 20 mg tablet 20 mg PO 1700 Qty: 30 0RF hydrocodone-acetaminophen 10-325 mg tablet 1 tablet PO Q6H PRN (Reason: pain (scale score 7-10)) Qty: 10 0RF acetaminophen 500 mg capsule 500 mg PO Q6H PRN (Reason: pain) Qty: 14 0RF Follow-up/Referrals: Shahla,Justen Spicer MD [Primary Care Provider] - Time of Disposition: 00:42
[2024-08-13 23:04] LABS: CRP 2.1 mg/dL (<1.0); Magnesium 1.8 mg/dL (1.6-2.3)
--- NOTE | 2024-08-13 23:15 | PC.NURSE ---
Pt. at CT.
[2024-08-13] MEDS: INSULIN HUMAN REGULAR (*BKC) 100 UNITS/ML 8 UNITS IV PUSH (23:35)
[2024-08-13 23:36] LABS: Glucose Point of Care 352 mg/dl (65-105)
[2024-08-13] MEDS: ONDANSETRON INJ 4 MG/2 ML VIAL IV PUSH (23:38)
[2024-08-13] MEDS: HYDROmorphone HCL INJ (*CRX) 2 MG/ML VIAL 0.5 MG IV PUSH (23:38)
[2024-08-13] MEDS: CLINDAMYCIN 900 MG/D5W 50 ML 900 MG/50 ML PIGGYBACK 50 MG IVPB (23:39)
[2024-08-14 00:16] VITALS: BP 123/75; PULSE 74; RESP 20; TEMP 36.7; O2SAT 97
[2024-08-14 00:18] VITALS: BP 123/75; PULSE 71; O2SAT 97
[2024-08-14 00:22] LABS: Glucose Point of Care 269 mg/dl (65-105)
[2024-08-14 00:41] VITALS: BP 129/74; PULSE 77; RESP 19; O2SAT 97
[2024-08-14 00:52] LABS: Anion Gap 9 mmol/L (4-12); Blood Urea Nitrogen 25 mg/dL (7-17); Calcium 9.1 mg/dL (8.4-10.2); Carbon Dioxide 24 mmol/L (22-30); Chloride 100 mmol/L (98-107); Estimated CRCL calculation 91 ml/min; Estimated Glomerular Filt Rate > 60; Glucose 290 mg/dL (65-110); Potassium 4.7 mmol/L (3.4-5.0); Sodium 133 mmol/L (137-145)
[2024-08-14 01:18] VITALS: BP 126/77
[2024-08-14 01:28] VITALS: BP 126/77; PULSE 72; RESP 20; TEMP 36.5; O2SAT 98
== END 2024-08-14 01:23 | disposition home or self-care (01) ==
PROVIDERS: Emergency Provider Physician Assistant; PCP Internal Medicine
DX: J03.90 Acute tonsillitis, unspecified (principal); Z79.01 Long term (current) use of anticoagulants; Z86.718 Personal history of other venous thrombosis and embolism; G25.81 Restless legs syndrome; G47.30 Sleep apnea, unspecified; I50.9 Heart failure, unspecified; F41.9 Anxiety disorder, unspecified; F32.A Depression, unspecified; Z87.442 Personal history of urinary calculi; Z86.711 Personal history of pulmonary embolism
CPT/HCPCS: 36415; 70491; 80048; 80053; 81003; 82010; 82948; 83735; 85025; 86140; 96365; 96375; 99284; J1171; J1815; J2405; J7120; Q9967

== ENCOUNTER 2024-09-26 23:39 | Emergency (ER) | payer MEDICARE, SELFPAY ==
--- NOTE | ~2024-09-26 | XR_ITS ---
Clinical Indication: Weakness PA and lateral views of the chest: Comparison: None Findings: The lungs are clear, without evidence of focal consolidation or pleural effusion. Cardiome diastinal silhouette is within normal limits. Bones and soft tissues are unremarkable. Impression: Normal chest. Reviewed, dictated and finalized at location . Impression: Normal chest.
[2024-09-26 23:42] VITALS: BP 157/85; PULSE 94; RESP 16; TEMP 36.3; O2SAT 96
--- OUTSIDE RECORDS SUMMARY | 2024-09-26 23:42 | XMS_ITS | Encounter Summary ---
Author Organization [facility] Address [address] [place] [address] Phone Care Team Providers Care Hand Woodworking Sander Name Role Phone Justen Gale MD Primary Care Provider David Roberts APRN, FIRE POT OPERATOR Unavailable Annel Rod MD Unavailable Reason for Visit * Reason Onset Date Comments Medication Refill 08/06/2020 Encounter Details Date Type Department Care Team (Late st Contact Info) Description 08/06/2020 [facility]ill [facility] [phone] Justen Gale MD #[address] [address] Medication Refill Social History Tobacco Use Types [...] Outpatient Visits 2 weeks ago [facility] APN, FIRE POT OPERATOR 2 months ago Increased [facility] Mueller APN, FIRE POT OPERATOR 5 months ago Urinary frequency [facility] Pili Mueller APN, FIRE POT OPERATOR 8 months ago Type 2 diabetes mellitus with diabetic polyneuropathy, with long- term current use of insulin (HCC) [facility] Pili Mueller APN, FIRE POT OPERATOR 9 months ago [facility] Justen Urbano MD Upcoming Appointments Future Appointments In 6 days Pili Elkins APN, FIRE POT OPERATOR [facility] Laura EQUAL OPPORTUNITY OFFICER - Recent and Past Visits Recent Visits Date Type Provider Dept 07/20/20 Office Visit Pili Elkins APN, FIRE POT OPERATOR [facility] 06/05/20 Office Visit Pili Elkins APN, NETTA [facility] 02/17/20 Office Visit Pili Elkins APN, NETTA [facility] 12/03/19 Office Visit Pili Elkins APN, NETTA [facility] 11/05/19 Telemedicine Justen Gale MD [facility] 07/25/19 Telemedicine Just[facility] MD [facility] recent visits within past 460 days with a meds authorizing provider and meeting all other requirements Future Appointments Date Type Provider Dept 08/12/20 Appointment Pili Elkins APN, CNP [facility] Showing future appointments within next 90 days [...] Care Team (Late st Contact Info) Description 10/22/2024 11:15 AM CDT Office Visit [facility] - Endocr[facility] - [facility] [address] [place] [address] Annel Rod MD #[address] [address] 11/13/2024 2:00 PM CDT Appointment [facility] [address] [place] [address] Angelito Alegria GAGGERMAN, FIRE POT OPERATOR #2 [facility] [address] [place] [address] Discharge Disposition: Discharged to home or Selfcare documented as of this encounter Visit Diagnoses Not on filedocumented in this encounter Additional Health Concerns Infection Onset Date Last Indicated Resolved Time COVID - 19 08/01/2024 08/01/2024 08/01/2024 3:20 PM CDT Assessment Noted Time PHQ-9 Depression Total Score: 0 07/21/19 3:00 PM CDT documented as of this encounter Care Teams Hand Woodworking Sander Relationship Specialty Start Date End Date Justen Gale MD #[address] [address] PCP - General Family Medicine 10/17/17 David Roberts APRN, FIRE POT OPERATOR [address] [place] [address] Nurse Practitioner Advanced Practice Nurse 01/31/22 Annel Rod MD #[address] [address] Consulting Physician Endocrinology 07/01/22 documented as of this encounter
--- OUTSIDE RECORDS SUMMARY | 2024-09-26 23:42 | XMS_ITS | Clinical Summary ---
Author Organization [facility] Address [address] [place] [address] Care Team Providers Care Retail Advisor Name Role Phone Justen Gale MD Primary Care Provider [phone] Source Comments [facility],non-[facility] Affiliates and Associated Physician Practices is amultiple site organization consisting of ambulatory clinics and hospital sitesin [place], [place], [place] and [place]. This disclosure is being madepursuant to the Care Everywhere program and may not contain all information available regarding this patient. Last updated [facility] 5 Screens Media Allergies Active Allergy Reactions Criticality Noted Date [...] Gluc Sensor (FreeStyle Eileen 2 Sensor Systm) [facility] APPLY 1 SENSOR AND WEAR FOR 14 [...] on the tongue 15 tablet 5 Active Active Problems Problem Noted Date [...] Encounters Date Type Department Care Team Description 08/14/2024 Results [place] [address] Josué Bernal PA-C 08/13/2024 Telephone ER at [facility] [place] [address] [place] [address] Jordana Abdul MD ER UC Follow-up 08/09/2024 6:46 PM CDT - 08/09/2024 9:35 PM CDT Emergency ER at [address] [id number] Yasmin Matthew DO Shortness of breath; Strep [...] medical care, and heating? 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 Gender Identity Not on file Sexual Orientation [...] this topic Medical Devices Implanted Type Area Automotive Sales Specialist Device Identifier Shelf Expiration Date Model / Serial / Lot Lead Nrstm 60cm Penta 3mm Pdl 16 Chnl Implanted:Qt y: 1 on 09/16/2021 by Maxi Gregg MD at [facility] Right: Spine Thoracic Advanced [employer] [id number] / / Description:CAMILO Slnt Dura Duraseal Pg Trilysine Amine 5 Implanted:Qt y: 1 on 09/16/2021 by Maxi Gregg MD at [facility] Right: Spine Thoracic [employer] David [id number] / / Description:CAMILO Proclaim Plus 5 Implanted:Qt y: 1 on 02/16/2023 by Maxi Gregg MD at [facility] Left: Back Cardenas Spine [id number] 11/07/2024 3670 / [id number] / Explanted Type Area Automotive Sales Specialist Device Identifier Shelf Expiration Date Model / Serial / Lot Gntr Nrstm 1.95inx2.19in Proclaim Elt Implanted:Qty: 1 on 09/16/2021 by Maxi Gregg MD at [facility] Explanted:Qty: 1 on 10/30/2021 by Maxi Gregg MD at [facility] Right: Spine Thoracic St [...] 08/09/2024 8:46 PM CDT [facility] Specific Andrews UA 1.014 1.005 - 1.030 08/09/2024 8:46 [...] 08/09/2024 8:46 PM CDT [facility] Leukocyte Esterase UA 500 PAO/uL(A) Negative 08/09/2024 8:46 PM CDT [facility] RBC UA 11-20(A) 0 - 5 # /hpf 08/09/2024 8:46 PM CDT [facility] WBC UA 51-100(A) 0 - 5 # /hpf 08/09/2024 8:46 PM CDT [facility] Bacteria UA Trace(A) None Seen 08/09/2024 8:46 PM CDT [facility] Squamous Epithelial Cells None Seen 0 - 5 /hpf 08/09/2024 8:46 PM CDT [facility] Mucus UA 1+ /LPF 08/09/2024 8:46 PM CDT [facility] Urine URINE SPECIMEN OBTAINED BY CLEAN CATCH PROCEDURE / Unknown 08/09/2024 8:39 PM CDT 08/09/2024 8:39 PM CDT Narrative [facility] - 08/09/2024 8:46 PM CDT Yasmin Matthew DO LAB - URINALYSIS ORDERABLES Final Result Performing Organization Address City/State/[facility] Co de Phone Number [facility] [address] [place] [address] * (ABNORMAL) CULTURE URINE (08/09/2024 8:39 PM CDT) [facility] Culture Urine 50,000-100,000 CFU/mL Escherichia coli(A) TERRANCE 08/12/2024 4:04 AM CDT [facility] Culture Urine 10,000-50,000 CFU/mL urogenital evelio TERRANCE 08/12/2024 4:04 AM CDT [facility] Urine URINE SPECIMEN OBTAINED BY CLEAN CATCH PROCEDURE / Unknown 08/09/2024 8:39 PM CDT 08/09/2024 8:39 PM CDT Narrative [facility] - 08/12/2024 4:04 AM CDT Organism [...] UTIs, use alternative cefazolin susceptibility result above. Yasmin Matthew DO LAB - MICROBIOLOGY ORDERABLE S Final Result [facility] [address] [facility] [address], [place] [address], [facility] [phone] * SARS-COV-2 (COVID-19) FLU A/B RSV PCR RAPID (08/09/2024 7:40 PM CDT) [facility] COVID-19 PCR Not detected Not detected 08/10/19 8:24 PM CDT [facility] Influenza A PCR Not detected Not detected 08/09/2024 8:24 PM CDT [facility] Influenza B PCR Not detected Not detected 08/09/2024 8:24 PM CDT [facility] RSV PCR Not detected Not detected 08/09/2024 8:24 PM CDT [facility] Microbiology SPECIMEN FROM NASOPHARYNGEAL STRUCTURE / Unknown Collection / Unknown 08/09/2024 7:40 PM CDT 08/09/2024 7:40 PM CDT Narrative [facility] - 08/09/2024 8:24 PM CDT This [...] this EUA assay are available upon request. Yasmin Matthew LAB - MICROBIOLOGY ORDERABLE S Final Result Performing Organization Address [facility] Co de Phone Number [facility] [address] [place] [phone] * (ABNORMAL) STREP A SCREEN DIRECT W RFLX STREP A CULTURE (08/09/2024 7:40 PM CDT) [facility] Strep A Rapid Positive(A ) Negative 08/09/2024 7:53 PM CDT [facility] Microbiology ENTIRE THROAT (SURFACE REGION OF NECK) / Unknown Collection / Unknown 08/09/2024 7:40 PM CDT 08/09/2024 7:40 PM CDT Yasmin Vipul LAB - MICROBIOLOGY ORDERABLE S Final Result Performing Organization Address [facility] de Phone Number [facility] [address] [place] [phone] * EKG 12-LEAD (08/09/2024 7:06 PM CDT) Ventricular Rate 86 BPM [facility] Atrial Rate 86 BPM [facility] P-R Interval 122 ms [facility] QRS Duration ms 86 ms [facility] Q-T Interval ms 370 ms [facility] QTC Calculation (Bezet) 442 ms [facility] Calculated R Garrett 8 degrees [facility] Calculated T Garrett 51 degrees [facility] Interpretation EKG NORMAL SINUS RHYTHM WITH SINUS ARRHYTHMIA SEPTAL INFARCT , AGE UNDETERMINED ABNORMAL ECG WHEN COMPARED WITH ECG OF 09-AUG-2024 13:34, SINUS RHYTHM HAS REPLACED ECTOPIC ATRIAL RHYTHM SEPTAL INFARCT IS NOW PRESENT Confirmed by Gil Perrin MD ([id number]) on 08/10/2024 9:03:52 AM [facility] 08/09/2024 7:06 PM CDT 08/10/2024 9:03 AM CDT oJsué Bernal PA-C ECG ORDERABLES Edited Re sult - Final Performing Organization Address City/[facility]/ZIP Co de Phone Number [facility] * TROPONIN-I HIGH SENSITIVE REFLEX 1HOUR (08/09/2024 3:29 PM CDT) [facility] Troponin I High Sensitive 5 <=14 ng/L 08/09/2024 4:50 PM CDT [facility] Delta Troponin I HS 08/09/2024 4:50 PM CDT [facility] Comment:Delta value intentio yissel not calculated. Baseline to 1 hour specimen collection interval exceeded. Blood BLOOD SPECIMEN / Unknown Venipuncture / Unknown 08/09/2024 3:29 PM CDT 08/09/2024 3:33 PM CDT Josué Bernal PA-C LAB - CHEMISTRY ORDERABLE S Final Result Performing Organization Address [facility] Co de Phone Number [facility] [address] [place] [address] * XR CHEST 2VW (08/09/2024 1:59 PM [...] 6 <=14 ng/L 08/09/2024 2:14 PM CDT [facility] Blood BLOOD SPECIMEN / Unknown Venipuncture / Unknown 08/09/2024 1:40 PM CDT 08/09/2024 1:43 PM CDT Josué Bernal PA-C LAB - CHEMISTRY ORDERABLE S Final Result [facility] [address] [place] [address] * (ABNORMAL) CBC W AUTO DIFFERENTIAL (08/09/2024 1:40 PM CDT) [facility] WBC 15.6(H) 4.0 - 10.7 x10E9/L 08/09/2024 1:47 PM CDT [facility] RBC Count 4.44 3.90 - 5.20 x10E12/L 08/09/2024 1:47 PM CDT [facility] Hemoglobin 13.0 11.9 - 15.8 g/dL 08/09/2024 1:47 PM CDT [facility] Hematocrit 40.4 34.8 - 46.1 % 08/09/2024 1:47 PM CDT [facility] MCV 91.0 80.0 - 98.0 fL 08/09/2024 1:47 PM CDT [facility] MCH 29.3 26.7 - 33.6 pg 08/09/2024 1:47 PM CDT [facility] MCHC 32.2 31.7 - 36.3 g/dL 08/09/2024 1:47 PM CDT [facility] RDW-CV 13.0 11.3 - 14.8 % 08/09/2024 1:47 PM CDT [facility] Platelet Count 249 150 - 420 x10E9/L 08/09/2024 1:47 PM CDT [facility] MPV 9.6 7.8 - 11.4 fL 08/09/2024 1:47 PM CDT [facility] Neutrophil % 72.7 41.0 - 74.0 % 08/09/2024 1:47 PM CDT [facility] Lymphocyte % 18.0 17.0 - 47.0 % 08/09/2024 1:47 PM CDT [facility] Monocyte % 7.5 3.0 - 11.0 % 08/09/2024 1:47 PM CDT [facility] Eosinophil % 1.2 0.0 - 7.0 % 08/09/2024 1:47 PM CDT [facility] Basophil % 0.2 0.0 - 1.6 % 08/09/2024 1:47 PM CDT [facility] Immature Granulocytes % 0.4 0.0 - 1.0 % 08/09/2024 1:47 PM CDT [facility] Neutrophil Absolute 11.35(H) 1.60 - 7.50 x10E9/L 08/09/2024 1:47 PM CDT [facility] Lymphocyte Absolute 2.82 1.00 - 4.40 x10E9/L 08/09/2024 1:47 PM CDT [facility] Monocyte Absolute 1.18(H) 0.15 - 1.00 x10E9/L 08/09/2024 1:47 PM CDT [facility] Eosinophil Absolute 0.19 0.00 - 0.60 x10E9/L 08/09/2024 1:47 PM CDT [facility] Basophil Absolute 0.03 0.00 - 0.13 x10E9/L 08/09/2024 1:47 PM CDT [facility] Blood BLOOD SPECIMEN / Unknown Venipuncture / Unknown 08/09/2024 1:40 PM CDT 08/09/2024 1:43 PM CDT Josué MCKEON-C LAB - HEMATOLOGY ORDERABL ES Final Result Performing Organization Address [facility] Co de Phone Number [facility] [address] [place] [phone] * B-TYPE NATRIURETIC PEPTIDE (08/09/2024 1:40 PM CDT) BNP 29 <=100 pg/mL 08/09/2024 2:11 PM CDT [facility] Blood BLOOD SPECIMEN / Unknown Venipuncture / Unknown 08/09/2024 1:40 PM CDT 08/09/2024 1:43 PM CDT Narrative [facility] - 08/09/2024 2:11 PM CDT A [...] for or are undergoing renal dialysis. Josué MCKEON-C LAB - CHEMISTRY ORDERABLE S Final Result Performing Organization Address [facility] Co de Phone Number [facility] [address] [place] [phone] * (ABNORMAL) COMPREHENSIVE METABOLIC PANEL (08/09/2024 1:40 PM CDT) [facility] Glucose 212(H) 70 - 99 mg/dL 08/09/2024 2:09 PM CDT [facility] Sodium 136 136 - 145 mmol/L 08/09/2024 2:09 PM CDT [facility] Potassium 3.9 3.5 - 5.1 mmol/L 08/09/2024 2:09 PM CDT [facility] Chloride 103 98 - 107 mmol/L 08/09/2024 2:09 PM CDT [facility] CO2 24 22 - 29 mmol/L 08/09/2024 2:09 PM T [facility] Calcium 9.4 8.4 - 10.4 mg/dL 08/09/2024 2:09 PM [facility] Anion Gap 9 6 - 16 mmol/L 08/09/2024 2:09 PM T [facility] BUN 19 7 - 26 mg/dL 08/09/2024 2:09 PM T [facility] Creatinine 0.82 0.57 - 1.11 mg/dL 08/09/2024 2:09 PM [facility] Alkaline Phosphatase 68 40 - 150 U/L 08/09/2024 2:09 PM CDT [facility] ALT 22 6 - 57 U/L 08/09/2024 2:09 PM T [facility] AST 23 10 - 48 U/L 08/09/2024 2:09 PM [facility] Protein Total 8.0 6.4 - 8.3 gm/dL 08/09/2024 2:09 PM T [facility] Albumin 3.3(L) 3.4 - 5.0 gm/dL 08/09/2024 2:09 PM [facility] Bilirubin Total 0.9 0.2 - 1.2 mg/dL 08/09/2024 2:09 PM [facility] eGFR by CKD-EPI 78(L) >=90 mL/min/1.7 3 m2 08/09/2024 2:09 PM [facility] Blood BLOOD SPECIMEN / Unknown Venipuncture / Unknown 08/09/2024 1:40 PM CDT 08/09/2024 1:43 PM CDT Josué MCKEON-Ana Laura LAB - CHEMISTRY ORDERABLE S Final Result Performing Organization Address [facility] de Phone Number [facility] [address] [place], [place] [phone] * (ABNORMAL) MAGNESIUM BLOOD (08/09/2024 1:40 PM CDT) Pathologist [facility] Magnesium 1.5(L) 1.6 - 2.6 mg/dL 08/09/2024 2:09 PM CDT [facility] Blood BLOOD SPECIMEN / Unknown Venipuncture / Unknown 08/09/2024 1:40 PM CDT 08/09/2024 1:43 PM CDT Josué MCKEON-C LAB - CHEMISTRY ORDERABLE S Final Result Performing Organization Address [facility] de Phone Number [facility] [address] [place] [address] * CK BLOOD (08/09/2024 1:40 PM CDT) [facility] CK 107 29 - 168 U/L 08/09/2024 7:44 PM CDT [facility] Blood BLOOD SPECIMEN / Unknown Venipuncture / Unknown 08/09/2024 1:40 PM CDT 08/09/2024 1:43 PM CDT Yasmin Matthew DO LAB - CHEMISTRY ORDERABLES F inal Result Performing Organization Address [facility] Co de Phone Number [facility] [address] [place] [phone] * HEPATITIS C AB SCREEN RFLX NAAT [...] 6:30 PM CDT 02/21/2023 6:34 PM CDT us Epi Solitario MD LAB - CHEMISTRY ORDERABLES Fi nal Result Performing Organization Address City/[facility]/ZIP Co de Phone Number [facility] [address] [place] [address], [place] [phone] * (ABNORMAL) HEMOGLOBIN A1C (12/25/2022 3:56 AM [...] to evaluate metabolic control in patients. Reference: [place] [employer], Standards of Care in Diabetes [...] LAB - CHEMISTRY ORDERA BLES Final Result [facility] [address] [place] [address], [place] [phone] from Last 3 Months or Most Recently [...] 3:37 AM 03/23/2023 7:14 PM Care Teams Retail Advisor Relationship Specialty Start Date End Date Justen Gale MD PCP - General 07/05/21
--- OUTSIDE RECORDS SUMMARY | 2024-09-26 23:42 | XMS_ITS | Clinical Summary ---
Author Organization [facility] Address [address] [place] [id number] Care Team Providers Care Timber Inspector Name Role Phone Liu Jerez MD Unavailable Albert Corbin MD Unavailable [phone] Justen Gale MD Primary Care Provider [phone] Khris Arthur MD Unavailable [phone] Ko Melendez MD Unavailable [phone] John Paul Moyer MD Unavailable Annel oRd MD Unavailable Anali MARSHALL MD, Carlos M. [...] 05/22/2024 Assessment & Plan (05/26/2024 10:08 AM LABOR TRAINING MANAGER): Presenting with urinary symptoms of right flank [...] 05/22/2024 Assessment & Plan (05/25/2024 7:52 AM LABOR TRAINING MANAGER): Hx of breast cancer c/b DVT/bilateral Pes [...] 05/22/2024 Assessment & Plan (05/22/2024 1:14 PM LABOR TRAINING MANAGER): -long-standing chronic back pain -CT L spine [...] 09/12/2021 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) 2021 long-term (current) use 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 inhibitors 10/17/2019 Thyroid [...] use of insulin ([facility]) 10/23/2017 Assessment & Plan (10/23/2017 [...] 10/13/2017 Assessment & Plan (05/22/2024 12:29 PM LABOR TRAINING MANAGER): -Hx stage II, ER positive, HER2 negative [...] 08/01/2017 Assessment & Plan (05/22/2024 12:33 PM LABOR TRAINING MANAGER): -Hx LUL -Hospital provided CPAP ordered History of DVT (deep vein thrombosis) 08/01/2017 History of pulmonary embolism 08/01/2017 Generalized weakness 07/27/2017 Dyspnea 07/27/2017 Unintentional weight loss 07/27/2017 Acute cystitis without hematuria 07/27/2017 Nausea and vomiting 07/26/2017 Overview (07/28/2017): Added automatically from request for surgery [id number] Pulmonary embolism 08/09/2016 Assessment & Plan (10/23/2017 2:05 AM CDT): On Rivaroxaban Lymphedema of left upper extremity 08/09/2016 Assessment & Plan (05/25/2024 7:53 AM LABOR TRAINING MANAGER): S/p L axillary lymph node dissection 2014, [...] syndrome Assessment & Plan (05/22/2024 11:18 AM LABOR TRAINING MANAGER): -continue home Requip 5mg nightly Pain of lower extremity 03/12/2013 Overview (07/29/2016): Leg pain Essential hypertension Assessment & Plan (05/23/2024 10:42 AM LABOR TRAINING MANAGER): -Chart history of HTN but not on meds -BP elevated on admission, likely some pain contributing -Monitor closely once pain under adequate control, discussed following up with PCP for this Chronic anticoagulation Restless leg syndrome 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 Type 2 diabetes mellitus without complication Assessment & Plan (05/24/2024 1:39 PM LABOR TRAINING MANAGER): -Last Ha1c 8.4 in 2023, repeat 8.7 [...] CDT - 07/01/2024 10:18 PM CDT Emergency [facility] Emergency Department [address] [place] [address] Myalgia (Primary Dx); Viral syndrome Discharge Disposition: Discharge to home or self care from Last 3 Months Immunizations Immunization Administration [...] CARDIAC CATHETERIZATION THYROID SURGERY Biopsy benign. CYSTOSCOPY ESOPHAGOGASTRODUODENOSCOPY Medical History Medical History Date Comments DVT (deep venous thrombosis) (HCC) PE (pulmonary thromboembolism) (HCC) CHF (congestive heart failure) (HCC) Breast CA (HCC) RLS (restless legs syndrome) DM (diabetes mellitus) (HCC) HTN (hypertension) LUL (obstructive sleep apnea) Obesity Osteoporosis MDD (major depressive disorder) DJD (degenerative joint disease) Family History Medical History Relation Name Comments [...] drink = 0.6 oz pur e alcohol) [employer] Utilities Answer Date Recorded In the past 12 months has [employer], [employer], oil, or water [employer] [facility]) threatened to shut off services in your [...] often do you attend chur ch or congregational services? More than 4 times per year [...] in a custodial (including now)? No 08/15/2023 Housing Stability Vital [...] living in a custodial (including now)? No 05/24/2024 Personal Safety Answer Date Recorded Have you ever been in or are you currently in a harmful physical or emotional relationship or is someone making you feel afraid or unsafe? Denies 07/01/2024 Comments No Sex and Gender Information Value Date Recorded Sex Assigned at Not on file Legal Sex Female 12:24 AM LABOR TRAINING MANAGER Gender Identity Not on file Sexual [...] COVID-19 PCR STAT 07/01/2024 2:02 PM CDT HEMOGLOBIN A1C STAT 05/21/2024 4:20 PM LABOR TRAINING MANAGER LIPID PANEL STAT 05/21/2024 4:20 PM LABOR TRAINING MANAGER DEXA AXIAL SKELETON BONE DENSITY 1 OR [...] breath since last night. 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 AR: VALERY Report ID: [id number] Reading Location: [id number] Procedure Note Juve Gallegos MD - 07/01/2024 [...] Juve Gallegos M.D. AR: VALERY Report ID: [id number] Reading Location: [id number] us Lila MCKEON IMG CT PROCEDURES Final Resu lt * (ABNORMAL) Troponin T high-sensitivity 2-hour (07/01/2024 3:43 PM CDT) Trop T hs 27(H) <=14 ng/L Comment: Interpretive Data For further hscTnT resources including the diagnostic algorithm and an aid in interpretation, copy and paste this link: https://nrl.testcatalog.org/show/hsTrop Current Interpretive Data last revised 2020. Testing performed by: [address] [address] Trop T hs delta 0 ng/L MARY JANE PHAM Comment:Testing performed by : [address] [address] Trop T hs interp Insignificant MARY JANE PHAM Comment:Testing performed by : [address] [address] Blood 07/01/2024 3:43 PM CDT 07/01/2024 3:52 PM CDT us Ilana Stevens MD LAB BLOOD ORDERABLES F inal Result [facility] [address] [facility] Department [place] [address] * (ABNORMAL) Urinalysis reflex to microscopic and culture Urine (07/01/2024 3:43 PM CDT) Color, ur Yellow Yellow Comment:Testing performed by : [address] [address] Clarity, ur Clear Clear MARY JANE PHAM Comment:Testing performed by : [address] [address] Specific gravity, ur 1.020 1.003 - 1.030 MARY JANE PHAM Comment:Testing performed by : [address], [place]., [address] pH, urine 6.0 MARY JANE Comment: Interpretive Data U rine pH is affected by diet, medications, systemic acid-base disturbances, and renal tubular function. pH may affect urinary stone formation. For example, urine pH below 6.0 may help reduce the tendency for calcium phosphate stones and pH greater than 6.0 may reduce the tendency for uric acid stone formation. Source: [facility] RenewData Current Interpretive Data was last revised on 2017 Testing performed by: [facility], [address] [place] [address], [place]., [address] Protein, ur ql Negative Negative MARY JANE Comment:Testing performed by : [address], [place]., [address] Glucose, ur ql 2+(A) Negative MARY JANE Comment:Testing performed by : [address], [place]., [address] Ketones, ur Negative Negative MARY JANE Comment:Testing performed by : [address], [place]., [address] Bilirubin, ur Negative Negative MARY JANE Comment:Testing performed by : [address], [place]., [address] Blood, ur Trace(A) Negative MARY JANE Comment:Testing performed by : [address], [place]., [address] Urobilinogen, ur <2.0 <2.0 mg/dL MARY JANE Comment:Testing performed by : [address], [place]., [address] Nitrite, ur Negative Negative MARY JANE Comment:Testing performed by : [address], [place]., [address] Leukocyte esterase, ur Negative Negative MARY JANE Comment:Testing performed by : [address], [place]., [address] UA reflex comment Reflex to microscopic UA will be performed. MARY JANE Comment:Testing performed by : [address], [place]., [address] Urine 07/01/2024 3:43 PM CDT 07/01/2024 3:52 PM CDT us Ilana Stevens MD LAB MICROBIOLOGY - GEN ERAL ORDERABLES Final Result Performing Organization Address [facility] de Phone Number MARY JANE [facility] [place] [address] * (ABNORMAL) Urinalysis, microscopic only (07/01/2024 3:43 PM CDT) WBC, ur 0-5 0 - 5 /HPF Comment:Testing performed by : [facility], [address] [place] [address]., [address] RBC, ur 3-5(A) 0 - 2 /HPF MARY JANE Comment:Testing performed by : [address] [address] Epithelial cells, squamous, ur 1-5 0 - 5 /HPF MARY JANE Comment:Testing performed by : [address] [address] Mucous, ur Present(A) MARY JANE Comment:Testing performed by : [address] [address] Culture Reflex Comment Reflex conditions for urine culture (WBC >10) not met. MARY JANE Comment:Testing performed by : [address] [address] Urine 07/01/2024 3:43 PM CDT 07/01/2024 3:52 PM CDT Ilana Stevens MD LAB URINE ORDERABLES F inal Result Performing Organization Address [facility] Co de Phone Number MARY JANE [address] [facility] [place] [address] * XR Chest 1 Vw Portable (if [...] Romelia Bowen D.O. PS: PS Report ID: [id number] Reading Location: [id number] Procedure Note Romelia Bowen, DO - 07/01/2024 [...] Romelia Bowen D.O. PS: PS Report ID: [id number] Reading Location: [id number] us Ilana Stevens MD IMG XR PROCEDURES Deann l Result * ECG 12 lead (07/01/2024 2:05 PM CDT) Ventricular Rate EKG/Min 76 BPM [facility] Atrial Rate 76 BPM [facility] [place]-Interval (MSEC) 130 ms [facility] QRS-Interval (MSEC) 86 ms [facility] QT-Interval (MSEC) 386 ms [facility] QTc 434 ms [facility] P [place] 26 degrees [facility] R [place] 22 degrees [facility] T [place] 46 degrees [facility] Diagnosis Normal sinus rhythm Normal ECG When compared with ECG of 28-DEC-2023 12:49, No significant change was found Confirmed by DUTCH BURGOS M.D. ([id number]) on 07/01/2024 10:10:22 PM [facility] 07/01/2024 2:05 PM CDT 07/01/2024 10:10 PM CDT us Ilana Stevens MD ECG ORDERABLES Final Result Performing Organization Address City/[facility]/ZIP Co de Phone Number [facility] * (ABNORMAL) Troponin T high-sensitivity series (baseline, 2hr, 4hr, 6hr) (07/01/2024 2:02 PM CDT) Pathologist [facility] Trop T hs 27(H) <=14 ng/L Comment: Interpretive Data For further hscTnT resources including the diagnostic algorithm and an aid in interpretation, copy and paste this link: https://nrl.testcatalog.org/show/hsTrop Current Interpretive Data last revised 2020. Testing performed by: [facility], [address] [place] [address]., [address] Blood 07/01/2024 2:02 PM CDT 07/01/2024 2:12 PM CDT us Ilana Stevens MD LAB BLOOD ORDERABLES F inal Result MARY JANE [address] [facility] Department [place] [address] * Influenza A/B, RSV, and COVID-19 PCR Nasopharyngeal (07/01/2024 2:02 PM CDT) [facility] COVID-19 RNA Negative Negative Comment:Testing performed by : [address] [address] Influenza A RNA Negative Negative [facility] Comment:Testing performed by : [address] [address] Influenza B RNA Negative Negative [facility] Comment:Testing performed by : [address] [address] RSV RNA Negative Negative [facility] Comment: Interpretive data: Testing performed by [facility]. This test is performed using the [employer] Xpert Xpress CoV-2/Flu/RSV plus assay. This is a multiplex, real-time reverse transcriptase PCR assay intended for the qualitative detection of nucleic acid from SARS-CoV-2, influenza A, influenza B, and respiratory syncytial virus. This assay has been cleared by the [place] Food and Drug administration. The performance characteristics have been verified by the [facility]. Results must be considered in the clinical context, and a negative result does not rule out infection. Interpretive Data last revised 2023 Testing performed by: [address] [address] Nasopharyngeal 07/01/2024 2: 02 PM CDT 07/01/2024 2:12 PM CDT Narrative [facility] - 07/01/2024 2:52 PM CDT Is the Patient experiencing symptoms consistent with COVID?->Yes us Ilana Stevens MD LAB MICROBIOLOGY - GEN ERAL ORDERABLES Final Result [facility] [address] [facility] Department [place] [address] * eGFR (07/01/2024 2:02 PM CDT) [facility] eGFR >90 >=60 mL/min/1. 73 m2 [...] was last reviewed 2021. Testing performed by: [address] [address] Blood 07/01/2024 2:02 PM CDT 07/01/2024 2:12 PM CDT Ilana Stevens MD LAB BLOOD ORDERABLES F inal Result [facility] Department [place] [address] * Differential, auto (07/01/2024 2:02 PM CDT) Neutrophil abs 5.3 1.5 - 6.5 K/cumm Comment:Testing performed by : [address] [address] Imm gran abs 0.0 0.0 - 0.1 K/cumm MARY JANE Comment:Testing performed by : [address] [address] Lymphocyte abs 2.6 0.8 - 3.3 K/cumm MARY JANE Comment:Testing performed by : [address] [address] Monocyte abs 0.8 0.2 - 0.8 K/cumm MARY JANE Comment:Testing performed by : [address] [address] Eosinophil abs 0.2 0.0 - 0.5 K/cumm MARY JANE Comment:Testing performed by : [address] [address] Basophil abs 0.0 0.0 - 0.1 K/cumm MARY JANE Comment:Testing performed by : [address] [address] Neutrophil pct 59.1 % MARY JANE Comment: Interpretive Data Percent cell count reference ranges are not reported, since discordance with absolute values may lead to misinterpretation of CBC data. Current Interpretive Data was last revised on 2017. Testing performed by: [address] [address] Imm gran pct 0.2 % MARY JANE Comment: Interpretive Data Percent cell count reference ranges are not reported, since discordance with absolute values may lead to misinterpretation of CBC data. Current Interpretive Data was last revised on 2017. Testing performed by: [address] [address] Lymphocyte pct 29.0 % MARY JANE Comment: Interpretive Data Percent cell count reference ranges are not reported, since discordance with absolute values may lead to misinterpretation of CBC data. Current Interpretive Data was last revised on 2017. Testing performed by: [address] [address] Monocyte pct 9.3 % MARY JANE Comment: Interpretive Data Percent cell count reference ranges are not reported, since discordance with absolute values may lead to misinterpretation of CBC data. Current Interpretive Data was last revised on 2017. Testing performed by: [address] [address] Eosinophil pct 2.2 % MARY JANE Comment: Interpretive Data Percent cell count reference ranges are not reported, since discordance with absolute values may lead to misinterpretation of CBC data. Current Interpretive Data was last revised on 2017. Testing performed by: [address] [address] Basophil pct 0.2 % MARY JANE Comment: Interpretive Data Percent cell count reference ranges are not reported, since discordance with absolute values may lead to misinterpretation of CBC data. Current Interpretive Data was last revised on 2017. Testing performed by: [facility], [address] [place] [address]., [address] Blood 07/01/2024 2:02 PM CDT 07/01/2024 2:12 PM CDT us Ilana Stevens MD LAB BLOOD ORDERABLES F inal Result MARY JANE [address] [facility] Department of Laboratories [place], [place] [id number] * Pro B-type natriuretic peptide (07/01/2024 2:02 [...] Revised Date: 2017. Testing performed by: [facility], [address] [place] [address]., [address] Blood 07/01/2024 2:02 PM CDT 07/01/2024 2:12 PM CDT us Ilana Stevens MD LAB BLOOD ORDERABLES F inal Result [facility] [address] [facility] Department [place] [address] * (ABNORMAL) CBC with auto differential (07/01/2024 2:02 PM CDT) [facility] WBC 9.0 3.8 - 9.9 K/cumm Comment:Testing performed by : [address] [address] Hgb 13.2 11.9 - 15.5 g/dL MARY JANE Comment:Testing performed by : [address] [address] Hct 41.1 35.6 - 45.5 % MARY JANE Comment:Testing performed by : [address] [address] Plt 277 150 - 400 K/cumm MARY JANE Comment:Testing performed by : [address] [address] MPV 9.5 9.1 - 12.3 fL MARY JANE Comment:Testing performed by : [address] [address] RBC 4.53 3.90 - 5.20 M/cumm MARY JANE Comment:Testing performed by : [address] [address] MCV 90.7 81.3 - 96.4 fL MARY JANE Comment:Testing performed by : [address] [address] MCH 29.1 27.1 - 33.3 pg MARY JANE PHAM Comment:Testing performed by : [address] [address] MCHC 32.1(L) 32.3 - 35.7 g/dL MARY JANE Comment:Testing performed by : [address] [address] RDW CV 13.2 11.1 - 14.9 % MARY JANE Comment:Testing performed by : [address] [address] RDW SD 44.2 35.7 - 48.1 fL MARY JANE Comment:Testing performed by : [address] [address] NRBC abs 0.00 0.00 - 0.01 K/cumm MARY JANE Comment:Testing performed by : [address] [address] Blood 07/01/2024 2:02 PM CDT 07/01/2024 2:12 PM CDT Ilana Stevens MD LAB BLOOD ORDERABLES F inal Result [facility] Department [place] [address] * Comprehensive metabolic panel (07/01/2024 2:02 PM CDT) Sodium 137 135 - 145 mmol/L Comment:Testing performed by : [address] [address] Potassium, pl 4.2 3.3 - 4.9 mmol/L MARY JANE Comment:Testing performed by : [address] [address] Chloride 101 97 - 110 mmol/L MARY JANE Comment:Testing performed by : [address] [address] CO2 27 22 - 32 mmol/L MARY JANE Comment:Testing performed by : [address] [address] Anion gap 9 2 - 15 mmol/L MARY JANE Comment:Testing performed by : [address] [address] BUN 15 6 - 25 mg/dL MARY JANE Comment:Testing performed by : [address] [address] Creatinine 0.60 0.60 - 1.10 mg/dL MARY JANE PHAM Comment:Testing performed by : [address] [address] Glucose 166 70 - 199 mg/dL MARY [...] was last revised 2022. Testing performed by: [address] [address] Calcium 9.8 8.5 - 10.3 mg/dL MARY JANE Comment:Testing performed by : [address] [address] Bilirubin, total 0.5 0.1 - 1.2 mg/dL MARY JANE Comment:Testing performed by : [address] [address] Protein, pl 8.0 6.5 - 8.5 g/dL MARY JANE Comment:Testing performed by : [address] [address] Albumin 3.8 3.5 - 5.0 g/dL MARY JANE Comment:Testing performed by : [address] [address] Alk phos 72 40 - 130 Units/L MARY JANE Comment:Testing performed by : [address] [address] ALT 19 7 - 45 Units/L MARY JANE Comment:Testing performed by : [address] [address] AST 23 10 - 45 Units/L MARY JANE Comment:Testing performed by : [address] [address] Blood 07/01/2024 2:02 PM CDT 07/01/2024 2:12 PM CDT us Ilana Stevens MD LAB BLOOD ORDERABLES F inal Result MARY JANE [address] [facility] Department [place] [address] * (ABNORMAL) Hemoglobin A1c (05/21/2024 4:20 PM LABOR TRAINING MANAGER) Hgb A1C 8.7(H) 4.0 - 5.6 % Estimated Average Glucose 203 mg/dL MARY JANE [facility] Comment: The ADA recommends reporting an estimated Average Glucose (eAG) with all Hemoglobin A1c results using the equation derived from a study of 507 normal and diabetic adults. Minority populations were underrepresented and children were not included. (Diabetes Care 2020; 43(S1): S66-S76). The eAG is not equivalent to a fasting glucose. Blood 05/21/2024 4:20 PM LABOR TRAINING MANAGER 05/21/2024 4:55 PM LABOR TRAINING MANAGER us Leo Henry MD LAB BLOOD ORDERABLES Final Result [facility] Department [place] [address] * (ABNORMAL) Lipid panel (05/21/2024 4:20 PM LABOR TRAINING MANAGER) Cholesterol 205(H) 30 - 199 mg/dL Comment: [...] Triglycerides 92 <=149 mg/dL MARY JANE [facility] Comment: Interpretive Data Ages < [...] HDL 55 >=40 mg/dL MARY JANE [facility] Comment: Interpretive Data Ages < [...] on 2017. LDL, calculated 134(H) <=129 mg/dL [facility] Comment: Interpretive Data Ages < [...] NCEP Expert Panel. Circulation 2004;110:227 3. Kedar Huertas. NANO Cardiol. 2020 August 22;5(5):540-548. doi: 10.1001/jamacardio.2020.0013 Current Interpretive Data was last revised on 2023. Non-HDL Cholesterol 150 mg/dL [facility] Comment: Interpretive Data Ages < [...] last revised on 2017. Chol/HDL ratio 4 [facility] Blood 05/21/2024 4:20 PM LABOR TRAINING MANAGER 05/21/2024 4:50 PM LABOR TRAINING MANAGER Narrative [facility] - 05/22/2024 4:17 PM LABOR TRAINING MANAGER Reflex us Leo Henry MD LAB BLOOD ORDERABLES Final Result [facility] Department [place] [address] * Dexa Axial Skeleton Bone Density 1 or 2 Site (08/02/2022 10:53 AM CDT) Anatomical Region Laterality Modality Body N/A Radiographic Lizeth ging Narrative 08/02/2022 3:34 PM CDT Patient Name: Karly Marques Date of : 1955 Date of scan: 08/02/2022 Bone mineral density was performed on a [employer] Discovery Densitometer. Based on machine cross-calibration and [...] scan were prepared by Yesenia Tineo(Gwendolyn) MARY who is accredited by the International Society of Clinical Densitometry. The overall patient assessment and scan interpretation were performed by Kaylie Castro MD who is certified by the International Society of Clinical Densitometry. [id number] Khris Arthur MD IMMichael DXA PROCEDURES F inal Result * COLONOSCOPY [...] agrees with it. ACC# Date Time Exam [id number] Aug 19, 2016 14:27:00 [facility] [address]197 Diag Mamm, inc CAD, unilat L Technologist(s): Carla Harris; ; [id number] Aug 19, 2016 15:39:00 C 14501 Breast US unilateral, ltd L ACC# Date Time Exam [id number] Aug 19, 2016 14:27:00 [facility] [address]18[address] Diag Mamm, inc CAD, unilat L Technologist(s): Carla Harris; ; [id number] Aug 19, 2016 15:39:00 C 47997 Breast US unilateral, ltd L EXAMINATION: LEFT [...] SARABIA M.D. on Aug 19 2016 4:20P [id number] Procedure Note Miscellaneous, Not In File / Provider, MD Tyler - 09/17/2016 ANTHONY SARABIA M.D. JUDY RINCON M.D. FINAL REPORT The radiology attending physician has personally reviewed this study, and has reviewed and/or edited this written report and agrees with it. ACC# Date Time Exam [id number] Aug 19, 2016 14:27:00 [facility] [address] Diag Mamm, inc CAD, unilat L Technologist(s): Carla Harris; ; [id number] Aug 19, 2016 15:39:00 [facility] [address] Breast US unilateral, ltd L ACC# Date Time Exam [id number] Aug 19, 2016 14:27:00 C 86096 Diag Mamm, inc CAD, unilat L Technologist(s): Carla Harris; ; [id number] Aug 19, 2016 15:39:00 C 26760 Breast US unilateral, ltd L EXAMINATION: LEFT [...] SARABIA M.D. on Aug 19 2016 4:20P [id number] us Not In File Miscellaneous IMG MAMMO PROCEDURES F inal Result from Last 3 Months or Most Recently Relevant to Health Maintenance [place] [address] [place] [address] [facility] MED[facility] ADVANTAGE [facility] Address: [address] [address] [place] [address] [facility] MEDICARE ADVANTAGE [facility] MEDIC[facility] ADVANTAGE Advance Directives For more information, please contact: [phone] Documents on File Type Date Recorded Patient Sound Recordist Expl anation ADVANCE DIRECTIVE 12/23/2021 2:49 PM Power of Supervisor Asphalt Paving-Medical ADVANCE DIRECTIVE 12/23/2021 2:49 PM Living Will [...] First Alternate Health Care Agent Care Teams Timber Inspector Relationship Specialty Start Date End Date Justen Gale MD [address] [address] PCP - General 10/09/17 Liu Jerez MD Consulting Physician Gastroenterology 07/28/17 [place] [address] [facility] [address] [place] [address] Consulting Physician Pulmonary Disease 08/03/17 Khris Arthur MD [address] [facility] [address] [place], [place] [id number] Medical Oncologist/Brush Fabrication Supervisor Medical Oncology 10/23/17 [place] [address] [facility] [address] [place] [address] Surgeon Orthopedic Surgery 10/23/17 [place] [address] [facility] [address] [place] [address] Consulting Physician Pain Management 10/23/17 [place] [address] [facility] [address] [place] [address] Referring Physician General Surgery 01/26/18 [place] [address] [place] [address] Consulting Physician Neurology 01/26/18
--- OUTSIDE RECORDS SUMMARY | 2024-09-26 23:42 | XMS_ITS | Encounter Summary ---
Author Organization [facility] Address [address] [place] [address] Phone Care Team Providers Care Bathhouse Attendant Name Role Phone Justen Gale MD Primary Care Provider David Roberts APRN, BARK PEELER Unavailable Annel Rod MD Unavailable Reason for Visit * Reason Comments Medication Refill Encounter Details Date Type Department Care Team (Late st Contact Info) Description 02/07/2020 Refill [facility] [address] [place] [address] Justen Gale MD #[address] [address] Medication Refill Social History Tobacco Use Types [...] Description 10/22/2024 11:15 AM CDT Office Visit [facility] - [place] #2 [place] [address] Annel Rod MD #[address] [address] 11/13/2024 2:00 PM CDT [facility] 1 [place] [address] Angelito Alegria APRN, BARK PEELER #2 [facility] [address] [place] [address] Discharge Disposition: Discharged to home or Selfcare documented as of this encounter Visit Diagnoses Not on filedocumented in this encounter Additional Health Concerns Infection Onset Date Last Indicated Resolved Time COVID - 19 08/01/2024 08/01/2024 08/01/2024 3:20 PM CDT Assessment Noted Time PHQ-9 Depression Total Score: 0 09/08/19 1:00 PM CDT documented as of this encounter Care Teams Bathhouse Attendant Relationship Specialty Start Date End Date Justen Gale MD #[address] [address] PCP - General Family Medicine 10/17/17 David Roberts APRN, NETTA #2 [facility] [place] [address] Nurse Practitioner Advanced Practice Nurse 01/31/22 Annel Rod MD #[address] [address] Consulting Physician Endocrinology 07/01/22 documented as of this encounter
--- OUTSIDE RECORDS SUMMARY | 2024-09-26 23:42 | XMS_ITS | Encounter Summary ---
Author Organization [facility] Address [address] [place] [address] Phone Care Team Providers Care Staff Appraiser Name Role Phone Justen Gale MD Primary Care Provider [phone] David Roberts APRN, SPACER TYPE BAR AND SEGMENT Unavailable [phone] Annel Rod MD Unavailable Encounter Details Date Type Department Care Team (Late st Contact Info) Description 06/05/2020 [facility] 1 [place] [address] Pili Elkins APRN, SPACER TYPE BAR AND SEGMENT #[address] [address] Frequency of micturition Social History [...] COVID-19? No / Unsure 2020 11:37 AM REGIONAL SALES CONSULTANT documented as of this encounter Plan of Treatment Upcoming Encounters Date Type Department Care Team (Late st Contact Info) Description 10/22/2024 11:15 AM CDT [facility] Visit [facility] - [place] #2 [place] [address] Annel Rod MD #2 [facility] [address] [place] [address] 11/13/2024 2:00 PM CDT [facility] 1 [place] [address] Angelito Alegria, ZAMZAM, SPACER TYPE BAR AND SEGMENT #2 [facility] [address] [place] [address] Discharge Disposition: Discharged to home or Selfcare documented as of this encounter Procedures Procedure Name Priority Date/Time Associated Diagnosis Comments URINALYSIS REFLEX IF INDICATED BY ABNORMAL RESULTS Routine 06/05/2020 4:45 PM REGIONAL SALES CONSULTANT Frequency of micturition documented in this encounter Results * (ABNORMAL) URINALYSIS REFLEX IF INDICATED BY ABNORMAL RESULTS (06/05/2020 4:45 PM REGIONAL SALES CONSULTANT) SPECIFIC GRAVITY 1.020 1.003 - 1.030 06/05/2020 5:19 PM REGIONAL SALES CONSULTANT [facility] URINE PH 5.0 5.0 - 9.0 06/05/2020 5:19 PM REGIONAL SALES CONSULTANT [facility] WBC ESTERASE Negative Negative 06/05/2020 5:19 PM REGIONAL SALES CONSULTANT [facility] NITRITE Negative Negative 06/05/2020 5:19 PM REGIONAL SALES CONSULTANT [facility] PROTEIN, RANDOM URINE Negative Negative 06/05/2020 5:19 PM REGIONAL SALES CONSULTANT [facility] URINE GLUCOSE, QUAL Negative Negative 06/05/2020 5:19 PM REGIONAL SALES CONSULTANT [facility] URINE KETONES Negative Negative 06/05/2020 5:19 PM REGIONAL SALES CONSULTANT [facility] UROBILINOGEN Normal Normal mg/dL 06/05/2020 5:19 PM REGIONAL SALES CONSULTANT [facility] URINE BILIRUBIN Negative Negative 5:19 PM REGIONAL SALES CONSULTANT [facility] URINE BLOOD 25 /uL(A) Negative leandro/ul 06/05/2020 5:19 PM REGIONAL SALES CONSULTANT [facility] URINALYSIS COLOR Yellow 06/05/19 5:19 PM REGIONAL SALES CONSULTANT [facility] URINALYSIS CLARITY Clear 06/05/2020 5:19 PM REGIONAL SALES CONSULTANT [facility] WBC (Urine) 0-5 Negative, 0-5 /hpf 06/05/2020 5:19 PM REGIONAL SALES CONSULTANT [facility] URINE RBC'S 3-5(A) Negative, 0-2 /hpf 06/05/2020 5:19 PM REGIONAL SALES CONSULTANT [facility] EPITHELIAL CELLS Small amount /lpf 2020 5:19 PM REGIONAL SALES CONSULTANT [facility] BACTERIA, URINE Few(A) Negative /hpf 06/05/2020 5:19 PM REGIONAL SALES CONSULTANT [facility] Urine URINE SPECIMEN / Unknown Non-Phlebotomy Collection / Unknown 06/05/2020 4:45 PM REGIONAL SALES CONSULTANT 06/05/2020 5:00 PM REGIONAL SALES CONSULTANT us Pili Elkins ACTUARIAL TRAINEE, SPACER TYPE BAR AND SEGMENT URINE ORDERABLES Fin al Result [facility] #1 [place] [address] documented in this encounter Visit Diagnoses Diagnosis Frequency of micturition Urinary frequency documented in this encounter Additional Health Concerns Infection Onset Date Last Indicated Resolved Time COVID - 19 08/01/2024 08/01/2024 08/01/2024 3:20 PM CDT Assessment Noted Time PHQ-9 Depression Total Score: 0 09/08/19 19 1:00 PM CDT documented as of this encounter Care Teams Staff Appraiser Relationship Specialty Start Date End Date Justen Gale MD #2 [facility] [address] [place] [address] PCP - General Family Medicine 10/17/17 David Roberts, ACTUARIAL TRAINEE, SPACER TYPE BAR AND SEGMENT #2 [place] [address] Nurse Practitioner Advanced Practice Nurse 01/31/22 Annel Rod MD #2 [facility] [address] [place] [address] Consulting Physician Endocrinology 07/01/22 documented as of this encounter
--- OUTSIDE RECORDS SUMMARY | 2024-09-26 23:42 | XMS_ITS | Encounter Summary ---
Author Organization [facility] Address [address] [place] [address] Phone Care Team Providers Care Amplifier Mechanic Name Role Phone Justen Gale MD Primary Care Provider [phone] David Roberts APRN, MANAGER OF RECRUITING Unavailable Annel Rod MD Unavailable Reason for Visit * Reason Comments Medication Refill Encounter Details Date Type Department Care Team (Late st Contact Info) Description 03/13/2021 Refill [facility] [address] [place] [address] Justen Gale MD #[address] [address] Medication Refill Social History Tobacco [...] COVID-19? No / Unsure 03/02/2021 5:05 PM SHOP FIRER/FIREMAN documented as of this encounter Plan of Treatment Upcoming Encounters Date Type Department Care Team (Late st Contact Info) Description 10/22/2024 11:15 AM CDT Office Visit [facility] #2 [place] [address] Annel Rod MD #2 [facility] [address] [place] [address] 11/13/2024 2:00 PM CDT [facility] 1 [place] [address] Angelito Alegria, GENERAL AGENT, MANAGER OF RECRUITING #2 [facility] [address] [place] [address] Discharge Disposition: Discharged to home or Selfcare documented as of this encounter Visit Diagnoses Not on filedocumented in this encounter Additional Health Concerns Infection Onset Date Last Indicated Resolved Time COVID - 19 08/01/2024 08/01/2024 08/01/2024 3:20 PM CDT Assessment Noted Time PHQ-9 Depression Total Score: 0 07/21/19 3:00 PM CDT documented as of this encounter Care Teams Amplifier Mechanic Relationship Specialty Start Date End Date Justen Gale MD #[address] [address] PCP - General Family Medicine 10/17/17 David Roberts APRN, MANAGER OF RECRUITING #2 [place] [address] Nurse Practitioner Advanced Practice Nurse 01/31/22 Annel Rod MD #2 [place] [id number] Consulting Physician Endocrinology 07/01/22 documented as of this encounter
--- OUTSIDE RECORDS SUMMARY | 2024-09-26 23:42 | XMS_ITS | CONTINUITY OF CARE DOCUMENT ---
Author Name ayesha, ayesha Address Unknown Organization [facility] Address [address] [place] [address] Phone [phone] Care Team Providers Care Integrity Manager Name Role Phone Yamilet DURÁN, Maico Unavailable ALANIS DURÁN, BRIDGETT Unavailable ALLISON DURÁN, CLARISSE Unavailable [phone] PROBLEMS Condition Status Date Provider Notes Shortness of breath active Ivory Rodriguez Palpitations active Radha Seals INSURANCE PROVIDERS Payer name Policy type / Coverage type [place] red alliance party ID UHC MEDICARE COMPLETE HMO Other [id number] [facility] Medicaid 2 [id number] HISTORY OF PROCEDURES Procedure Date Procedure Name Provider Procedure Notes S tatus Stress EKG Carmine Silverio MD complet ed Regadenoson, 4 units Sergey Saldana MD completed Cardiolite, 2 units Sergey Saldana MD completed SPECT Images Carmine Silverio MD compl eted Holter, 24 or 48 Maico Woodard MD co mpleted
--- OUTSIDE RECORDS SUMMARY | 2024-09-26 23:42 | XMS_ITS | Encounter Summary ---
Author Organization [facility] Address [address] [place] [address] Phone Care Team Providers Care Chemical Unit Operator Name Role Phone Justen Gale MD Primary Care Provider David Roberts APRN, [employer] BOATMAN Unavailable Annel oRd MD Unavailable Reason for Visit * Reason Comments Medication Refill Encounter Details Date Type Department Care Team (Late st Contact Info) Description 02/17/2021 Refill [facility] #2 [place] [phone] Justen Gale MD #[address] [address] Medication Refill Social History Tobacco Use Types [...] Mcgee 06/05/20 Office Visit Pili Elkins APRN, [employer]IV[employer] LAKES BOATMAN [facility] Showing recent visits within past 365 days and meeting all other requirements Future Appointments Date Type Provider Dept 03/02/21 Appointment Vince Hermosillo MD [facility] Showing future appointments within next 90 days and meeting all other requirements documented in this encounter Plan of Treatment Upcoming Encounters Date Type Department Care Team (Late st Contact Info) Description 10/22/2024 11:15 AM CDT Office Visit [facility] #2 [place] [address] Annel Rod MD #2 [facility] [address] [place] [address] 11/13/2024 2:00 PM CDT Appointment [facility] Cardiology Services 1 [place] [address] Angelito Alegria, HEAVY LINE TECHNICIAN, [employer] BOATMAN #2 [facility] [address] [place] [address] Discharge Disposition: Discharged to home or Selfcare documented as of this encounter Visit Diagnoses Not on filedocumented in this encounter Additional Health Concerns Infection Onset Date Last Indicated Resolved Time COVID - 19 08/01/2024 08/01/2024 08/01/2024 3:20 PM CDT Assessment Noted Time PHQ-9 Depression Total Score: 0 07/21/19 3:00 PM CDT documented as of this encounter Care Teams Chemical Unit Operator Relationship Specialty Start Date End Date Justen Gale MD #[address] [address] PCP - General Family Medicine 10/17/17 David Roberts HEAVY LINE TECHNICIAN, [employer] BOATMAN #2 [place] [address] Nurse Practitioner Advanced Practice Nurse 01/31/22 Annel Rod MD #[address] [address] Consulting Physician Endocrinology 07/01/22 documented as of this encounter
--- OUTSIDE RECORDS SUMMARY | 2024-09-26 23:42 | XMS_ITS | Referral Summary ---
Author Organization [facility] Address [address] [place] [id number] Care Team Providers Care Public Welfare Director Name Role Phone Liu Jerez MD Unavailable Albert Corbin MD Unavailable [phone] Justen Gale MD Primary Care Provider Khris Arthur MD Unavailable [phone] Ko Melendez MD Unavailable John Paul Moyer MD Unavailable Annel Rod MD Unavailable Anali MARSHALL MD, Carlos M. Unavailable Encounters Date Type Department Care Team Description 07/01/2024 8:52 PM CDT - 07/01/2024 10:18 PM CDT Emergency [facility] Emergency Department [address] [place] [address] Myalgia (Primary Dx); Viral syndrome [...] Test) strip 4 (four) times a day 021 Active albuterol HFA (PROVENTIL HFA,VENTOLIN HFA,PROAIR HFA) [...] 05/22/2024 Assessment & Plan (05/26/2024 10:08 AM PATTERN MECHANIC): Presenting with urinary symptoms of right [...] 05/22/2024 Assessment & Plan (05/25/2024 7:52 AM PATTERN MECHANIC): Hx of breast cancer c/b DVT/bilateral [...] 05/22/2024 Assessment & Plan (05/22/2024 1:14 PM PATTERN MECHANIC): -long-standing chronic back pain -CT L [...] pain 09/12/2021 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) 04/10/ 2022 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 10/17/2019 Thyroid [...] complication, without long-term current use of insulin ([facility]) 10/23/2017 Assessment & Plan (10/23/2017 [...] 10/13/2017 Assessment & Plan (05/22/2024 12:29 PM PATTERN MECHANIC): -Hx stage II, ER positive, HER2 negative breast cancer, on adjuvant exemestane -s/p bilateral mastectomies, left axillary LN dissection, with negative margins -Follows with Khris Somers -Outpatient Medical Oncology Note review indicates plan to continue on exemestane, will complete 10 years of therapy in 12/2024 -Yearly Reclast, next dose 11/2024 Chest pressure 08/01/2017 Positive blood culture 08/01/2017 Hyponatremia 08/01/2017 Diet-controlled diabetes mellitus ([facility]/HCC) 07/23 LUL (obstructive sleep apnea) 08/01/2017 Assessment & Plan (05/22/2024 12:33 PM PATTERN MECHANIC): -Hx LUL -Hospital provided CPAP ordered History of DVT (deep vein thrombosis) 08/01/2017 History of pulmonary embolism 08/01/2017 Generalized weakness 07/27/2017 Dyspnea 07/27/2017 Unintentional weight loss 07/27/2017 Acute cystitis without hematuria 07/27/2017 Nausea and vomiting 07/26/2017 Overview (07/28/2017): Added automatically from request for surgery [id number] Pulmonary embolism 08/09/2016 Assessment & Plan (10/23/2017 2:05 AM CDT): On Rivaroxaban Lymphedema of left upper extremity 08/09/2016 Assessment & Plan (05/25/2024 7:53 AM PATTERN MECHANIC): S/p L axillary lymph node dissection [...] syndrome Assessment & Plan (05/22/2024 11:18 AM PATTERN MECHANIC): -continue home Requip 5mg nightly Pain of lower extremity 03/12/2013 Overview (07/29/2016): Leg pain Essential hypertension Assessment & Plan (05/23/2024 10:42 AM PATTERN MECHANIC): -Chart history of HTN but not on meds -BP elevated on admission, likely some pain contributing -Monitor closely once pain under adequate control, discussed following up with PCP for this Chronic anticoagulation Restless leg syndrome 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 Type 2 diabetes mellitus without complication Assessment & Plan (05/24/2024 1:39 PM PATTERN MECHANIC): -Last Ha1c 8.4 in 2023, repeat [...] drink = 0.6 oz pur e alcohol) [facility] Utilities Answer Date Recorded In the [...] medical appointments or from getting medications? No 01/3 04/2024 In the past 12 months, has l [...] in a fci (including now)? No 08/15/2023 Housing Stability Vital [...] time in the past 12 m [facility], were you homeless or living in a fci (including now)? No 05/24/2024 Personal Safety Answer Date Recorded Have you ever been in or are you currently in a harmful physical or emotional relationship or is someone making you feel afraid or unsafe? Denies 07/01/2024 Comments No Sex and Gender Information Value Date Recorded Sex Assigned at Not on file Legal Sex Female 12:24 AM PATTERN MECHANIC Gender Identity Not on file Sexual [...] CDT HEMOGLOBIN A1C STAT 05/21/2024 4:20 PM PATTERN MECHANIC LIPID PANEL STAT 05/21/2024 4:20 PM PATTERN MECHANIC DEXA AXIAL SKELETON BONE DENSITY 1 OR [...] since last night. 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 AR: VALERY Report ID: [id number] Reading Location: [id number] Procedure Note Juve Gallegos MD - 07/01/2024 [...] Juve Gallegos M.D. AR: VALERY Report ID: [id number] Reading Location: [place] [address] PROCEDURES Final Resu lt * (ABNORMAL) Troponin T high-sensitivity 2-hour (07/01/2024 3:43 PM CDT) Trop T hs 27(H) <=14 ng/L Comment: Interpretive Data For further hscTnT resources including the diagnostic algorithm and an aid in interpretation, copy and paste this link: https://nrl.testcatalog.org/show/hsTrop Current Interpretive Data last revised 2020. Testing performed by: [address] [address] Trop T hs delta 0 ng/L MARY JANE PHAM Comment:Testing performed by : [address] [address] Trop T hs interp Insignificant MARY JANE HPAM Comment:Testing performed by : [address] [address] Blood 07/01/2024 3:43 PM CDT 07/01/2024 3:52 PM CDT us Ilana Stevens MD LAB BLOOD ORDERABLES F inal Result MARY JANE [address] [facility] Department [place] [address] * (ABNORMAL) Urinalysis reflex to microscopic and culture Urine (07/01/2024 3:43 PM CDT) Color, ur Yellow Yellow Comment:Testing performed by : [address] [address] Clarity, ur Clear Clear MARY JANE Comment:Testing performed by : [address] [address] Specific gravity, ur 1.020 1.003 - 1.030 MARY JANE Comment:Testing performed by : [address] [address] pH, urine 6.0 MARY JANE Comment: Interpretive Data U rine pH is affected by diet, medications, systemic acid-base disturbances, and renal tubular function. pH may affect urinary stone formation. For example, urine pH below 6.0 may help reduce the tendency for calcium phosphate stones and pH greater than 6.0 may reduce the tendency for uric acid stone formation. Source: [facility] [place] Current Interpretive Data was last revised on 2017 Testing performed by: [address] [address] Protein, ur ql Negative Negative MARY JANE Comment:Testing performed by : [address] [address] Glucose, ur ql 2+(A) Negative MARY JANE Comment:Testing performed by : [address] [address] Ketones, ur Negative Negative MARY JANE Comment:Testing performed by : [address] [address] Bilirubin, ur Negative Negative MARY JANE Comment:Testing performed by : [address] [address] Blood, ur Trace(A) Negative MARY JANE Comment:Testing performed by : [address] [address] Urobilinogen, ur <2.0 <2.0 mg/dL MARY JANE PHAM Comment:Testing performed by : [address] [address] Nitrite, ur Negative Negative MARY JANE Comment:Testing performed by : [address] [address] Leukocyte esterase, ur Negative Negative MARY JANE Comment:Testing performed by : [address] [address] UA reflex comment Reflex to microscopic UA will be performed. MARY JANE Comment:Testing performed by : [address], [place]., [address] Urine 07/01/2024 3:43 PM CDT 07/01/2024 3:52 PM CDT us Ilana Stevens MD LAB MICROBIOLOGY - GEN ERAL ORDERABLES Final Result Performing Organization Address City/State/[facility] Co de Phone Number MARY JANE [address] [facility] Department [place] [address] * (ABNORMAL) Urinalysis, microscopic only (07/01/2024 3:43 PM CDT) WBC, ur 0-5 0 - 5 /HPF Comment:Testing performed by : [address] [address] RBC, ur 3-5(A) 0 - 2 /HPF MARY JANE PHAM Comment:Testing performed by : [address] [address] Epithelial cells, squamous, ur 1-5 0 - 5 /HPF MARY JANE PHAM Comment:Testing performed by : [address] [address] Mucous, ur Present(A) MARY JANE Comment:Testing performed by : [address] [address] Culture Reflex Comment Reflex conditions for urine culture (WBC >10) not met. MARY JANE PHAM Comment:Testing performed by : [address] [address] Urine 07/01/2024 3:43 PM CDT 07/01/2024 3:52 PM CDT us Ilana Stevens MD LAB URINE ORDERABLES F inal Result [facility] [address] [facility] Department [place] [address] * XR Chest 1 Vw Portable (if [...] Romelia Bowen D.O. PS: PS Report ID: [id number] Reading Location: [id number] Procedure Note Romelia Bowen, DO - 07/01/2024 [...] Romelia Bowen D.O. PS: PS Report ID: [id number] Reading Location: [place] [address] us Ilana Stevens MD IMG XR PROCEDURES Deann l Result * ECG 12 lead (07/01/2024 2:05 PM CDT) Ventricular Rate EKG/Min 76 BPM [facility] Atrial Rate 76 BPM [facility] NH-Interval (MSEC) 130 ms [facility] QRS-Interval (MSEC) 86 ms [facility] QT-Interval (MSEC) 386 ms [facility] QTc 434 ms [facility] P [place] 26 degrees [facility] R [place] 22 degrees [facility] T [place] 46 degrees [facility] Diagnosis Normal sinus rhythm Normal ECG When compared with ECG of 28-DEC-2023 12:49, No significant change was found Confirmed by DUTCH BURGOS M.D. ([id number]) on 07/01/2024 10:10:22 PM [facility] 07/01/2024 2:05 PM CDT 07/01/2024 10:10 PM CDT us Ilana Stevens MD ECG ORDERABLES Final Result [facility] * (ABNORMAL) Troponin T high-sensitivity series (baseline, 2hr, 4hr, 6hr) (07/01/2024 2:02 PM CDT) Trop T hs 27(H) <=14 ng/L Comment: Interpretive Data For further hscTnT resources including the diagnostic algorithm and an aid in interpretation, copy and paste this link: https://nrl.testcatalog.org/show/hsTrop Current Interpretive Data last revised 2020. Testing performed by: [address] [address] Blood 07/01/2024 2:02 PM CDT 07/01/2024 2:12 PM CDT Ilana Stevens MD LAB BLOOD ORDERABLES F inal Result [place] [id number] [facility] Department [place] [address] * Influenza A/B, RSV, and COVID-19 PCR Nasopharyngeal (07/01/2024 2:02 PM CDT) Pathologist [facility] COVID-19 RNA Negative Negative Comment:Testing performed by : [address] [address] Influenza A RNA Negative Negative [facility] Comment:Testing performed by : [address] [address] Influenza B RNA Negative Negative [facility] Comment:Testing performed by : [address] [address] RSV RNA Negative Negative [facility] Comment: Interpretive data: Testing performed by [facility]. This test is performed using the [employer] Xpert Xpress CoV-2/Flu/RSV plus assay. This is a multiplex, real-time reverse transcriptase PCR assay intended for the qualitative detection of nucleic acid from SARS-CoV-2, influenza A, influenza B, and respiratory syncytial virus. This assay has been cleared by the [place] Food and Drug administration. The performance characteristics have been verified by the [facility]. Results must be considered in the clinical context, and a negative result does not rule out infection. Interpretive Data last revised 2023 Testing performed by: [address] [address] Nasopharyngeal 07/01/2024 2: 02 PM CDT 07/01/2024 2:12 PM CDT Narrative MARY JANE - 07/01/2024 2:52 PM CDT Is the Patient experiencing symptoms consistent with COVID?->Yes us Ilana Stevens MD LAB MICROBIOLOGY - GEN ERAL ORDERABLES Final Result Performing Organization Address [facility] Co de Phone Number MARY JANE [address] [place] [address] * eGFR (07/01/2024 2:02 PM CDT) Pathologist [facility] eGFR >90 >=60 mL/min/1. [...] reviewed 2021. Testing performed by: [facility], [address] [place] [address]., [address] Blood 07/01/2024 2:02 PM CDT 07/01/2024 2:12 PM CDT us Ilana Stevens MD LAB BLOOD ORDERABLES F inal Result Performing Organization Address City/[facility]/ZIP Co de Phone Number MARY JANE [address] [place] [address] * Differential, auto (07/01/2024 2:02 PM CDT) [facility] Neutrophil abs 5.3 1.5 - 6.5 K/cumm Comment:Testing performed by : [facility], [address] [place] [address], [place]., [address] Imm gran abs 0.0 0.0 - 0.1 K/cumm [facility] Comment:Testing performed by : [address], [place]., [address] Lymphocyte abs 2.6 0.8 - 3.3 K/cumm [facility] Comment:Testing performed by : [address], [place]., [address] Monocyte abs 0.8 0.2 - 0.8 K/cumm [facility] Comment:Testing performed by : [address], [place]., [address] Eosinophil abs 0.2 0.0 - 0.5 K/cumm [facility] Comment:Testing performed by : [address], [place]., [address] Basophil abs 0.0 0.0 - 0.1 K/cumm [facility] Comment:Testing performed by : [address] [address] Neutrophil pct 59.1 % [facility] Comment: Interpretive Data Percent cell count reference ranges are not reported, since discordance with absolute values may lead to misinterpretation of CBC data. Current Interpretive Data was last revised on 2017. Testing performed by: [address] [address] Imm gran pct 0.2 % [facility] Comment: Interpretive Data Percent cell count reference ranges are not reported, since discordance with absolute values may lead to misinterpretation of CBC data. Current Interpretive Data was last revised on 2017. Testing performed by: [address] [address] Lymphocyte pct 29.0 % [facility] Comment: Interpretive Data Percent cell count reference ranges are not reported, since discordance with absolute values may lead to misinterpretation of CBC data. Current Interpretive Data was last revised on 2017. Testing performed by: [address] [address] Monocyte pct 9.3 % [facility] Comment: Interpretive Data Percent cell count reference ranges are not reported, since discordance with absolute values may lead to misinterpretation of CBC data. Current Interpretive Data was last revised on 2017. Testing performed by: [address] [address] Eosinophil pct 2.2 % [facility] Comment: Interpretive Data Percent cell count reference ranges are not reported, since discordance with absolute values may lead to misinterpretation of CBC data. Current Interpretive Data was last revised on 2017. Testing performed by: [address] [address] Basophil pct 0.2 % [facility] Comment: Interpretive Data Percent cell count reference ranges are not reported, since discordance with absolute values may lead to misinterpretation of CBC data. Current Interpretive Data was last revised on 2017. Testing performed by: [address] [address] Blood 07/01/2024 2:02 PM CDT 07/01/2024 2:12 PM CDT us Ilana Stevens MD LAB BLOOD ORDERABLES F inal Result [facility] [address] [facility] Department [place] [address] * Pro B-type natriuretic peptide [...] Last Revised Date: 2017. Testing performed by: [address] [address] Blood 07/01/2024 2:02 PM CDT 07/01/2024 2:12 PM CDT Ilana Stevens MD LAB BLOOD ORDERABLES F inal Result [facility] [address] [facility] Department [place] [address] * (ABNORMAL) CBC with auto differential (07/01/2024 2:02 PM CDT) [facility] WBC 9.0 3.8 - 9.9 K/cumm Comment:Testing performed by : [address] [address] Hgb 13.2 11.9 - 15.5 g/dL MARY JANE PHAM Comment:Testing performed by : [address] [address] Hct 41.1 35.6 - 45.5 % MARY JANE PHAM Comment:Testing performed by : [address] [address] Plt 277 150 - 400 K/cumm MARY JANE PHAM Comment:Testing performed by : [address] [address] MPV 9.5 9.1 - 12.3 fL MARY JANE PHAM Comment:Testing performed by : [address] [address] RBC 4.53 3.90 - 5.20 M/cumm MARY JANE PHAM Comment:Testing performed by : [address] [address] MCV 90.7 81.3 - 96.4 fL MARY JANE PHAM Comment:Testing performed by : [address] [address] MCH 29.1 27.1 - 33.3 pg MARY JANE Comment:Testing performed by : [address] [address] MCHC 32.1(L) 32.3 - 35.7 g/dL MARY JANE Comment:Testing performed by : [address] [address] RDW CV 13.2 11.1 - 14.9 % MARY JANE Comment:Testing performed by : [address] [address] RDW SD 44.2 35.7 - 48.1 fL MARY JANE Comment:Testing performed by : [address] [address] NRBC abs 0.00 0.00 - 0.01 K/cumm MARY JANE Comment:Testing performed by : [address] [address] Blood 07/01/2024 2:02 PM CDT 07/01/2024 2:12 PM CDT us Ilana Stevens MD LAB BLOOD ORDERABLES F inal Result [facility] [address] [facility] Department [place] [address] * Comprehensive metabolic panel (07/01/2024 2:02 PM CDT) Pathologist [facility] Sodium 137 135 - 145 mmol/L Comment:Testing performed by : [address], [address] Potassium, pl 4.2 3.3 - 4.9 mmol/L MARY JANE Comment:Testing performed by : [address], [place]., [address] Chloride 101 97 - 110 mmol/L MARY JANE Comment:Testing performed by : [address], [place]., [address] CO2 27 22 - 32 mmol/L MARY JANE Comment:Testing performed by : [address], [place]., [address] Anion gap 9 2 - 15 mmol/L MARY JANE Comment:Testing performed by : [address], [place]., [address] BUN 15 6 - 25 mg/dL [facility] Comment:Testing performed by : [address], [place]., [address] Creatinine 0.60 0.60 - 1.10 mg/dL MARY JANE Comment:Testing performed by : [address], [place]., [address] Glucose 166 70 - 199 mg/dL MARY [...] last revised 2022. Testing performed by: [address] [address] Calcium 9.8 8.5 - 10.3 mg/dL MARY JANE Comment:Testing performed by : [address] [address] Bilirubin, total 0.5 0.1 - 1.2 mg/dL MARY JANE Comment:Testing performed by : [address] [address] Protein, pl 8.0 6.5 - 8.5 g/dL MARY JANE Comment:Testing performed by : [address] [address] Albumin 3.8 3.5 - 5.0 g/dL MARY JANE Comment:Testing performed by : [address] [address] Alk phos 72 40 - 130 Units/L MARY JANE Comment:Testing performed by : [address] [address] ALT 19 7 - 45 Units/L MARY JANE Comment:Testing performed by : [address] [address] AST 23 10 - 45 Units/L MARY JANE Comment:Testing performed by : [address] [address] Blood 07/01/2024 2:02 PM CDT 07/01/2024 2:12 PM CDT us Ilana Stevens MD LAB BLOOD ORDERABLES F inal Result Performing Organization Address City/[facility]/ZIP Co de Phone Number [facility] [address] [facility] Department [place] [address] * (ABNORMAL) Hemoglobin A1c (05/21/2024 4:20 PM PATTERN MECHANIC) [facility] Hgb A1C 8.7(H) 4.0 - 5.6 % Estimated Average Glucose 203 mg/dL [facility] Comment: The ADA recommends reporting an estimated Average Glucose (eAG) with all Hemoglobin A1c results using the equation derived from a study of 507 normal and diabetic adults. Minority populations were underrepresented and children were not included. (Diabetes Care 2020; 43(S1): S66-S76). The eAG is not equivalent to a fasting glucose. Blood 05/21/2024 4:20 PM PATTERN MECHANIC 05/21/2024 4:55 PM PATTERN MECHANIC us Leo Henry MD LAB BLOOD ORDERABLES Final Result Performing Organization Address City/[facility]/ZIP Co de Phone Number [facility] Department [place] [address] * (ABNORMAL) Lipid panel (05/21/2024 4:20 PM PATTERN MECHANIC) Cholesterol 205(H) 30 - 199 mg/dL [...] 2017. Triglycerides 92 <=149 mg/dL MARY JANE [facility] Comment: Interpretive Data Ages < [...] 2017. HDL 55 >=40 mg/dL MARY JANE [facility] Comment: Interpretive Data Ages < [...] LDL, calculated 134(H) <=129 mg/dL MARY JANE [facility] Comment: Interpretive Data Ages < [...] revised on 2023. Non-HDL Cholesterol 150 mg/dL [facility] Comment: Interpretive Data Ages < or = [...] last revised on 2017. Chol/HDL ratio 4 [facility] Blood 05/21/2024 4:20 PM PATTERN MECHANIC 05/21/2024 4:50 PM PATTERN MECHANIC Narrative [facility] - 05/22/2024 4:17 PM PATTERN MECHANIC Reflex us Leo Henry MD LAB BLOOD ORDERABLES Final Result [facility] Department [place] [address] * Dexa Axial Skeleton Bone Density 1 or 2 Site (08/02/2022 10:53 AM CDT) Anatomical Region Laterality Modality Body N/A Radiographic Lizeth ging Narrative 08/02/2022 3:34 PM CDT Patient Name: Karly Marques Date of : 1955 Date of scan: 08/02/2022 Bone mineral density was performed on a [employer] Discovery Densitometer. Based on machine cross-calibration and [...] by the International Society of Clinical Densitometry. [id number] us Khris Arthur MD IMG DXA PROCEDURES [...] agrees with it. ACC# Date Time Exam [id number] Aug 19, 2016 14:27:00 [facility] [address] [employer] CAD, unilat L Technologist(s): Carla Harris; ; [id number] Aug 19, 2016 15:39:00 [facility] [address] Breast US unilateral, ltd L ACC# Date Time Exam [id number] Aug 19, 2016 14:27:00 [facility] [address] [employer] CAD, unilat L Technologist(s): Carla Harris; ; [id number] Aug 19, 2016 15:39:00 [facility] [address] Breast US unilateral, ltd L EXAMINATION: LEFT [...] SARABIA M.D. on Aug 19 2016 4:20P [id number] Procedure Note Miscellaneous, Not In File / Provider, MD Tyler - 09/17/2016 ANTHONY SARABIA M.D. JUDY RINCON M.D. FINAL REPORT The radiology attending physician has personally reviewed this study, and has reviewed and/or edited this written report and agrees with it. ACC# Date Time Exam [id number] Aug 19, 2016 14:27:00 [facility] [address] [employer] CAD, unilat L Technologist(s): Carla Harris; ; [id number] Aug 19, 2016 15:39:00 [facility] [address] Breast US unilateral, ltd L ACC# Date Time Exam [id number] Aug 19, 2016 14:27:00 [facility] [address] [employer] inc CAD, unilat L Technologist(s): Carla Harris; ; [id number] Aug 19, 2016 15:39:00 [facility] [address] Breast US unilateral, ltd L EXAMINATION: LEFT [...] SARABIA M.D. on Aug 19 2016 4:20P [id number] us Not In File Miscellaneous IMG MAMMO PROCEDURES F inal Result from Last 3 Months or Most Recently Relevant to Health Maintenance Insurance [employer] Advance Directives For more information, please contact: [phone] Documents on File Type Date Recorded Patient Strategy Director Expl anation ADVANCE DIRECTIVE 12/23/2021 2:49 PM Power of Core Stripper-Medical ADVANCE DIRECTIVE 12/23/2021 2:49 PM Living Will [...] Agents on File Name Relationship Healthcare Agent [facility] Yunior Marques Daughter Health Care Agent Jimmie Marques Spouse First Alternate Health Care Agent Care Teams Public Welfare Director Relationship Specialty Start Date End Date Justen Gale MD [address] [address] PCP - General 10/09/17 Liu Jerez MD Consulting Physician Gastroenterology 07/28/[address] [place] [address] [facility] [address] [place] [address] Consulting Physician Pulmonary Disease 08/03/17 Khris Arthur MD [address] [facility] [address] [place], [place] [id number] Medical Oncologist/Farm Tractor Mechanic Medical Oncology 10/23/[address] [place] [address] [facility] [address] [place] [address] Surgeon Orthopedic Surgery 10/23/17 [place] [id number] [address] Consulting Physician Pain Management 10/23/17 [place] [address] [facility] [address] [place] [address] Referring Physician General Surgery 01/26/18 [place] [address] [facility] [address] [place] [address] Consulting Physician Neurology 01/26/18
--- OUTSIDE RECORDS SUMMARY | 2024-09-26 23:42 | XMS_ITS | Encounter Summary ---
Author Organization [facility] Address [address] [place] [address] Phone Care Team Providers Care Risk Advisor Name Role Phone Justen Gale MD Primary Care Provider David Roberts APRN, CREDENTIALER Unavailable Annel Rod MD Unavailable Reason for Visit * Reason Onset Date Comments Sore Throat 06/29/2020 Encounter Details Date Type Department Care Team (Late st Contact Info) Description 06/29/2020 Telephone [facility] [place] [address] [place] [address] Justen Gale MD #[address] [address] Sore Throat Social History Tobacco Use Types [...] COVID-19? No / Unsure 06/29/2020 8:43 AM LATIN DANCE INSTRUCTOR documented as of this encounter Miscellaneous Notes * Telephone Encounter - Gail Lucero RN - 06/29/2020 3:53 PM CST Attempted to call mailbox is full. Pt does not need testing N DANCE INSTRUCTOR * Telephone Encounter - Vince Hermosillo MD - 06/29/2020 3:13 PM CST No covid testing needed. If the er thought that it was warranted then they would have done this. N DANCE INSTRUCTOR * Telephone Encounter - Marlys Sorensen RN - 06/29/2020 8:36 AM CST Patient calling. Patient is calling to schedule Hospital/ED/Prompt-Care follow up appointment. Hospital/ED/Prompt-Care Site: [facility] ED Records Requested: Yes Reason [...] f/up and yearly PAP appointments? Please advise. N DANCE INSTRUCTOR documented in this encounter Plan of Treatment Upcoming Encounters Date Type Department Care Team (Late st Contact Info) Description 10/22/2024 11:15 AM CDT Office Visit [facility] Endocr[facility]ology - [place] #2 [place] [address] Annel Rod MD #2 [facility] [address] [place] [address] 11/13/2024 2:00 PM CDT [facility] 1 [place] [address] Angelito Alegria, MARBLE MECHANIC HELPER, CREDENTIALER #2 [facility] [address] [place] [address] Discharge Disposition: Discharged to home or Selfcare documented as of this encounter Visit Diagnoses Not on filedocumented in this encounter Additional Health Concerns Infection Onset Date Last Indicated Resolved Time COVID - 19 08/01/2024 08/01/2024 08/01/2024 3:20 PM CDT Assessment Noted Time PHQ-9 Depression Total Score: 0 09/08/19 19 1:00 PM CDT documented as of this encounter Care Teams Risk Advisor Relationship Specialty Start Date End Date Justen Gale MD #2 [facility] [address] [place] [address] PCP - General Family Medicine 10/17/17 David Roberts APRN, CREDENTIALER #2 [place] [address] Nurse Practitioner Advanced Practice Nurse 01/31/22 Annel Rod MD #2 [facility] [address] [place] [address] Consulting Physician Endocrinology 07/01/22 documented as of this encounter
--- OUTSIDE RECORDS SUMMARY | 2024-09-26 23:42 | XMS_ITS ---
Author Organization [facility] Address [address] [place] [address] Care Team Providers Care Matcher Offbearer Name Role Phone Liu Jerez MD Unavailable Albert Corbin MD Unavailable Justen Gale MD Primary Care Provider Khris Arthur MD Unavailable [phone] Ko Melendez MD Unavailable John Paul Moyer MD Unavailable Annel Rod MD Unavailable Anali MARSHALL MD, Carlos M. Unavailable Active Problems Problem Noted Date Diagnosed Date Urinary tract infection 05/22/2024 Assessment & Plan (05/26/2024 10:08 AM CHIEF ENTERPRISE ARCHITECT): Presenting with urinary symptoms of right flank [...] 05/22/2024 Assessment & Plan (05/25/2024 7:52 AM CHIEF ENTERPRISE ARCHITECT): Hx of breast cancer c/b DVT/bilateral Pes [...] 05/22/2024 Assessment & Plan (05/22/2024 1:14 PM CHIEF ENTERPRISE ARCHITECT): -long-standing chronic back pain -CT L spine [...] 09/12/2021 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) 2021 detention (current) use 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 inhibitors 10/17/2019 Thyroid [...] current use of insulin ([facility]) 10/23/2017 Assessment & Plan (10/23/2017 2:06 [...] 10/13/2017 Assessment & Plan (05/22/2024 12:29 PM CHIEF ENTERPRISE ARCHITECT): -Hx stage II, ER positive, HER2 negative [...] 08/01/2017 Assessment & Plan (05/22/2024 12:33 PM CHIEF ENTERPRISE ARCHITECT): -Hx LUL -Hospital provided CPAP ordered History of DVT (deep vein thrombosis) 08/01/2017 History of pulmonary embolism 08/01/2017 Generalized weakness 07/27/2017 Dyspnea 07/27/2017 Unintentional weight loss 07/27/2017 Acute cystitis without hematuria 07/27/2017 Nausea and vomiting 07/26/2017 Overview (07/28/2017): Added automatically from request for surgery [id number] Pulmonary embolism 08/09/2016 Assessment & Plan (10/23/2017 2:05 AM CDT): On Rivaroxaban Lymphedema of left upper extremity 08/09/2016 Assessment & Plan (05/25/2024 7:53 AM CHIEF ENTERPRISE ARCHITECT): S/p L axillary lymph node dissection 2014, [...] syndrome Assessment & Plan (05/22/2024 11:18 AM CHIEF ENTERPRISE ARCHITECT): -continue home Requip 5mg nightly Pain of lower extremity 03/12/2013 Overview (07/29/2016): Leg pain Essential hypertension Assessment & Plan (05/23/2024 10:42 AM CHIEF ENTERPRISE ARCHITECT): -Chart history of HTN but not on meds -BP elevated on admission, likely some pain contributing -Monitor closely once pain under adequate control, discussed following up with PCP for this Chronic anticoagulation Restless leg syndrome 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 Past Treatment and Therapy Plans Oncology Supportive Care Therapy Plan Plan Name Start Date Discontinue Date Treatment Medications Discontinue Reason Plan Provider Zoledronic Acid (ZOMETA) Infusion 01/05/2021 09/07/2021 No medications scheduled. Toxicity/Complic ation Khris Arthur MD Lifetime Dose Tracking * Chemical Lifetime Dose Automatic Entry Manual Entr y DLP 4,741 mGycm 4,741 mGycm 0 mGycm
--- OUTSIDE RECORDS SUMMARY | 2024-09-26 23:43 | XMS_ITS | Encounter Summary ---
Author Organization [facility] Address [address] [place] [address] Phone Care Team Providers Care Signals Collection Technician Name Role Phone Justen Gale MD Primary Care Provider [phone] David Roberts APRN, ROOF DESIGNER Unavailable [phone] Annel Rod MD Unavailable Reason for Visit * Reason Onset Date Comments Advice Only 11/21/2023 Encounter Details Date Type Department Care Team (Late st Contact Info) Description 11/21/2023 Telephone [facility] [address] [place] [address] Justen Gale MD #[address] [address] Advice Only Social History Tobacco Use Types [...] 3:17 PM CDT RFC: Alejandra from [facility] is calling to state that patient [...] Visit [facility] - [place] #2 [place] [address] Annel Rod MD #2 [facility] [address] [place] [address] 11/13/2024 2:00 PM CDT [facility] 1 [place] [address] Angelito Alegria APRN, ROOF DESIGNER #2 [facility] [address] [place] [address] Discharge Disposition: Discharged to home or Selfcare documented as of this encounter Visit Diagnoses Not on filedocumented in this encounter Additional Health Concerns Infection Onset Date Last Indicated Resolved Time COVID - 19 08/01/2024 08/01/2024 08/01/2024 3:20 PM CDT Assessment Noted Time PHQ-9 Depression Total Score: 8 01/18/20 2:24 PM CDT documented as of this encounter Care Teams Signals Collection Technician Relationship Specialty Start Date End Date Justen Gale MD #2 [facility] [address] [place] [address] PCP - General Family Medicine 10/17/17 David Roberts APRN, NETTA #2 [place] [address] Nurse Practitioner Advanced Practice Nurse 01/31/22 Annel Rod MD #2 [facility] [address] [place] [address] Consulting Physician Endocrinology 07/01/22 documented as of this encounter
--- OUTSIDE RECORDS SUMMARY | 2024-09-26 23:43 | XMS_ITS | Encounter Summary ---
Author Organization [facility] Address [address] [place] [address] Phone Care Team Providers Care Rainbow Trout Farm Manager Name Role Phone Justen Gale MD Primary Care Provider David Roberts APRN, PALLIATIVE SENIOR NP Unavailable [phone] Annel Rod MD Unavailable Reason for Visit * Reason Onset Date Comments Advice Only 08/19/2024 Follow-up 08/19/2024 Encounter Details Date Type Department Care Team (Late st Contact Info) Description 08/19/2024 Telephone [facility] - [facility] [place] #[address] [place] [address] Justen Gale MD #[address] [address] Advice Only; Follow-up Social History Tobacco Use Types Packs/Day Years Used Date Smoking Tobacco: Never Smokeless Tobacco: Never Alcohol Use Standard Drinks/Week Comments No 0 (1 standard drink = 0.6 oz pur e alcohol) [facility] Utilities Answer Date Recorded In [...] you attend chur ch or holiness services? More than 4 times [...] Total Score - Questions 1-9 0 07/23 [facility] Questionnaire Answer Date [...] any time in the past 12 m [facility], were you homeless or living in a snf (including now)? No 08/06/2024 Education Answer Date [...] Miscellaneous Notes * Telephone Encounter - Farzaneh Conrad MA - 08/19/2024 12:22 PM CDT Spoke with balbir Brandt scheduled 08/20/24. * Telephone Encounter - Justen Gale MD - 08/19/2024 9:09 AM CDT Needs office visit * Telephone Encounter - Angelito Alegria, DOT ETCHER APPRENTICE, PALLIATIVE SENIOR NP - 08/19/2024 9:04 AM CDT Forwarding * Telephone Encounter - Isaura Weiss RN - 08/19/2024 8:37 AM CDT Situation: Strep throat follow up Background: Patient contacting PCP office. Patient was seen in ED on 08/09 and 08/12 in [place] (records in chart). Diagnosed with strep. Assessment: Patient was originally prescribed Clindamycin but experienced abdominal pain, nausea and vomiting and patient was changed to amoxicillin-patient finished amoxicillin treatment yesterday. Patient still has sore throat, swelling, sores on tongue. No fevers at this time. Pain about a 4, with discomfort with talking and eating,but able to eat ok.Patient also describes mucous in back of throat as well. Recommendation: Could provider please advise what patient's next steps should be and if she should be seen in office? Patient also concerned because she has many allergies and does not want to be prescribed something that could cause a reaction. Patient ok with MyChart response. * Telephone Encounter - Nupur Alanis - 08/19/2024 8:33 AM CDT Symptom: Sore Throat Outcome: Transfer to division sergeant queue Reason: Caller denied all higher acuity questions The caller accepted this outcome. Caller Denied: * Struggling for each breath (severe trouble breathing) * Can't swallow saliva (drooling) documented in this encounter Plan of Treatment Upcoming Encounters Date Type Department Care Team (Late st Contact Info) Description 10/22/2024 11:15 AM CDT Office Visit [facility] - Endocr[facility]ology - [place] #2 [place] [address] Annel Rod MD #[address] [phone] 11/13/2024 2:00 PM CDT Appointment [facility] Cardiology Services 1 [place] [address] Angelito Alegria, DOT ETCHER APPRENTICE, PALLIATIVE SENIOR NP #[address] [address] Discharge Disposition: Discharged to home or Selfcare documented as of this encounter Visit Diagnoses Not on filedocumented in this encounter Additional Health Concerns Assessment Noted Time PHQ-9 Depression Total Score: 0 08/02/19 25 1:09 PM CDT documented as of this encounter Care Teams Rainbow Trout Farm Manager Relationship Specialty Start Date End Date Justen Gale MD #[address] [address] PCP - General Family Medicine 10/17/17 David Roebrts APRN, PALLIATIVE SENIOR NP #2 [place] [address] Nurse Practitioner Advanced Practice Nurse 01/31/22 Annel Rod MD #[address] [address] Consulting Physician Endocrinology 07/01/22 documented as of this encounter
--- OUTSIDE RECORDS SUMMARY | 2024-09-26 23:43 | XMS_ITS | Encounter Summary ---
Author Organization [facility] Address [address] [place] [address] Phone Care Team Providers Care Java Support Engineer Name Role Phone Justen Gale MD Primary Care Provider David Roberts APRN, BRAND AMBASSADORS PROMOTIONAL SALES Unavailable Annel Rod MD Unavailable Reason for Visit * Reason Onset Date Comments Sore Throat 09/02/2024 Encounter Details Date Type Department Care Team (Late st Contact Info) Description 09/02/2024 Nurse Triage [facility] [address] [place] [address] Justen Gale MD #[address] [address] Sore Throat Social History Tobacco Use Types [...] How often do you attend chur or adventist services? More than 4 times per year 08/06/2024 Do you belong to any clubs o r organizations such as holiness groups, unions, fraternal or athletic groups, or [...] Questions 1-9 0 07/23 [facility] of Occupat ional Health - Occupational [...] Miscellaneous Notes * Telephone Encounter - Christin Baez, NURIS - 09/02/2024 2:49 PM CDT SITUATION: strep throat continues, sore throat, mouth sores BACKGROUND: Karly contacting PCP office. Patient was seen on 08/09 in ED and diagnosed with strep throat and treated with Tetracycline then switched to Amoxicillin. She was see again 08/[address] Gale and treated with Augmentin. Patient states sore throat continues as well as mouth sores. ASSESSMENT: Symptom Description / Location: Difficulty eating due to mouth sores Mouth and throat feel raw Painful to swallow Patient sounds muffled, difficult for her to talk due to pain Some jaw pain due to mouth sore near jaw Recently diagnosed with polymyositis and taking prednisone 5 mg daily. Denies congestion or cough, Denies rash, denies shortness of breath, denies signs of dehydration Pain: 5/10 mouth sore Fever: Denies fever. Treatment / Response: gargle with warm salt water with some relief. RECOMMENDATION: Caller understands recommendation, but refuses disposition to be seen today and is requesting provider to treat. Caller requesting treatment. Patient states her is very ill an hospitalized for pneumonia and sepsis. Patient states it would be difficult for her to make an appointment. Care advice provided per triage guideline. Caller verbalized understanding. Encounter routed to provider high priority to notify. Please advise. Patient request treatment. Thank you Pharmacy, medications, and allergies reviewed. Discussed utilizing Keniu to: discuss if they would prefer a Keniu message or phone call response - See care advice and disposition for Guideline. First positive answer recorded, all responses to prior questions were negative. If symptoms increase, change or if new symptoms develop, call your health care provider or call back. Recommendations were based on caller information and is not a diagnosis. Verified and reviewed all triage information with caller. Reason for Disposition Pus on tonsils (back of throat) and swollen neck lymph nodes ('glands') Protocols used: Sore Throat-A-[place] standing order available * Telephone Encounter - Sabrina Ortega - 09/02/2024 2:46 PM CDT Symptoms: Sore Throat, Mouth Sores or Ulcers - Caller Reports Outcome: Transfer to personal lines appraiser queue Reason: Caller denied all higher acuity questions The caller accepted this outcome. Caller Denied: * Struggling for each breath (severe trouble breathing) * Can't swallow saliva (drooling) documented in this encounter Plan of Treatment Upcoming Encounters Date Type Department Care Team (Late st Contact Info) Description 10/22/2024 11:15 AM CDT [facility] Visit [facility] - [place] #2 [place] [address] Anenl Rod MD #[address] [address] 11/13/2024 2:00 PM CDT [facility] 1 [place] [address] Angelito Alegria, ZAMZAM, BRAND AMBASSADORS PROMOTIONAL SALES #[address] [address] Discharge Disposition: Discharged to home or Selfcare documented as of this encounter Visit Diagnoses Not on filedocumented in this encounter Additional Health Concerns Assessment Noted Time PHQ-9 Depression Total Score: 0 08/02/19 25 1:09 PM CDT documented as of this encounter Care Teams Java Support Engineer Relationship Specialty Start Date End Date Justen Gale MD #[address] [address] PCP - General Family Medicine 10/17/17 David Roberts APRN, BRAND AMBASSADORS PROMOTIONAL SALES #2 [place] [address] Nurse Practitioner Advanced Practice Nurse 01/31/22 Annel Rod MD #[address] [address] Consulting Physician Endocrinology 07/01/22 documented as of this encounter
--- OUTSIDE RECORDS SUMMARY | 2024-09-26 23:43 | XMS_ITS | Encounter Summary ---
Author Organization [facility] Address [address] [place] [address] Care Team Providers Care Base Filler Name Role Phone Justen Gale MD Primary Care Provider [phone] Encounter Details Date Type Department Care Team (Late st Contact Info) Description 08/14/2024 Results Follow-Up ER at [facility] [address] [place] [address] Josué Bernal, STEPH [address] [place] [address] Social History Tobacco Use Types Packs/Day Years [...] medical care, and heating? Somewhat hard 05/16/2023 [facility] of Occupat ional Health - Occupational Stress [...] a skilled nursing (including now)? No 05/16/2023 Comments No Sex and Gender Information Value Date Recorded Sex Assigned at Not on file Legal Sex Female 6:53 PM DENTAL LABORATORY TECHNICIAN APPRENTICE Gender Identity Not on file Sexual [...] Assessment Author Yes 02/22/2023 5:59 AM Milena Dockery, RN * Does person have difficulty dressing/bathing? Answer Date of Assessment Author Yes 02/22/2023 5:59 AM Milena Dockery, NURIS * Does person have difficulty doing errands alone? Answer Date of Assessment Author No 02/22/2023 5:59 AM Milena Dockery RN documented as of this encounter Mental Status * Does person have difficulty concentrating/remembering/making decisions? Answer Entry Date Author No 02/22/2023 5:59 AM Milena Dockery RN documented in this encounter Plan of Treatment Not on file documented as of this encounter Visit Diagnoses Not on filedocumented in this encounter Care Teams Base Filler Relationship Specialty Start Date End Date Justen Gale MD PCP - General 07/05/21 documented as of this encounter
--- OUTSIDE RECORDS SUMMARY | 2024-09-26 23:43 | XMS_ITS | Encounter Summary ---
Author Organization [facility] Address [address] [place] [address] Phone Care Team Providers Care Cellar Hand Name Role Phone Justen Gale MD Primary Care Provider David Roberts APRN, CORPORATE SAFETY DIRECTOR Unavailable Annel Rod MD Unavailable Reason for Visit * Reason Comments Medication Refill Encounter Details Date Type Department Care Team (Late st Contact Info) Description 04/13/2023 Refill [facility] - [place] #2 [place] [address] Annel Rod MD #[address] [address] Medication Refill Social History Tobacco [...] Jennifer Wang, RN - 04/14/2023 10:00 AM HEARING AIDE TECHNICIAN Requested Prescriptions Pending Prescriptions Disp Refills ??? Continuous Blood Gluc Sensor (FreeStyle Eileen 2 Sensor) Misc [Pharmacy Med Name: FREESTYLE EILEEN 2 SENSOR] 6 Each 1 Sig: APPLY 1 SENSOR AND WEAR FOR 14 DAYS TO CHECK BLOOD SUGAR Next appt: 05/30/2023 ING AIDE TECHNICIAN documented in this encounter Plan of Treatment Upcoming Encounters Date Type Department Care Team (Late st Contact Info) Description 10/22/2024 11:15 AM CDT Office Visit [facility] - [place] #2 [place] [address] Annel Rod MD #2 [facility] [address] [place] [address] 11/13/2024 2:00 PM CDT [facility] 1 [place] [address] Angelito Alegria, ZAMZAM, CORPORATE SAFETY DIRECTOR #2 [facility] [address] [place] [address] Discharge Disposition: Discharged to home or Selfcare documented as of this encounter Visit Diagnoses Not on filedocumented in this encounter Additional Health Concerns Infection Onset Date Last Indicated Resolved Time COVID - 19 08/01/2024 08/01/2024 08/01/2024 3:20 PM CDT Assessment Noted Time PHQ-9 Depression Total Score: 8 01/18/20 2:24 PM CDT documented as of this encounter Care Teams Cellar Hand Relationship Specialty Start Date End Date Justen Gale MD #2 [facility] [address] [place] [address] PCP - General Family Medicine 10/17/17 David Roberts APRN, CORPORATE SAFETY DIRECTOR #2 [place] [address] Nurse Practitioner Advanced Practice Nurse 01/31/22 Annel Rod MD #[address] [address] Consulting Physician Endocrinology 07/01/22 documented as of this encounter
--- OUTSIDE RECORDS SUMMARY | 2024-09-26 23:43 | XMS_ITS | Encounter Summary ---
Author Organization [facility] Address [address] [place] [address] Phone Care Team Providers Care Nurse Practitioner Hospitalist Name Role Phone Justen Gale MD Primary Care Provider David Roberts APRN, SAP ARIBA CONSULTANT Unavailable Annel Rod MD Unavailable Reason for Visit * Reason Comments Medication Refill Encounter Details Date Type Department Care Team (Late st Contact Info) Description 08/07/2023 Refill [facility] - [place] #2 [place] [address] Annel Rod MD #[address] [address] Medication Refill Social History [...] Description 10/22/2024 11:15 AM CDT Office [facility] - [facility] #2 [place] [address] Annel Rod MD #[address] [address] 11/13/2024 2:00 PM CDT [facility] 1 [place] [address] Angelito Alegria APRN, NETTA #[address] [address] Discharge Disposition: Discharged to home or Selfcare documented as of this encounter Visit Diagnoses Not on filedocumented in this encounter Additional Health Concerns Infection Onset Date Last Indicated Resolved Time COVID - 19 08/01/2024 08/01/2024 08/01/2024 3:20 PM CDT Assessment Noted Time PHQ-9 Depression Total Score: 8 01/18/20 2:24 PM CDT documented as of this encounter Care Teams Nurse Practitioner Hospitalist Relationship Specialty Start Date End Date Justen Gale MD #[address] [place] [address] PCP - General Family Medicine 10/17/17 David Roberts APRN, SAP ARIBA CONSULTANT #2 [place] [address] Nurse Practitioner Advanced Practice Nurse 01/31/22 Annel Rod MD #[address] [address] Consulting Physician Endocrinology 07/01/22 documented as of this encounter
--- OUTSIDE RECORDS SUMMARY | 2024-09-26 23:43 | XMS_ITS | Patient Health Record ---
Author Organization [facility] Address [address] [facility] [address] [facility] [address] [place] [address] Care Team Providers Care Agriculture Sales Account Manager Name Role Phone Yo DURÁN, Lavonne Primary Care Provider Unavail able Reason For Referral No Information Plan Of Treatment No Information Insurance Providers Payer Name Payer Address Payer Phone Subscriber Number Group Number Insured Name Patient Relationship to Insured Coverage Start Date Coverage End Date [facility] [employer] [address] [address] [place], [place] [id number] Karly Marques Self - patient is the insured
--- OUTSIDE RECORDS SUMMARY | 2024-09-26 23:43 | XMS_ITS | Encounter Summary ---
Author Organization [facility] Address [address] [place] [address] Phone Care Team Providers Care Urologist Md Name Role Phone Justen Gale MD Primary Care Provider David Roberts APRN, BRANCH CHIEF Unavailable Annel Rod MD Unavailable Reason for Visit * Reason Comments Medication Refill Encounter Details Date Type Department Care Team (Late st Contact Info) Description 10/24/2022 Refill [facility] #2 [place] [address] Pili Elkins APRN, BRANCH CHIEF #[address] [address] Medication Refill Social History [...] Endocrinology [facility] #2 [place] [address] Annel Rod MD #[address] [address] 11/13/2024 2:00 PM CDT Appointment [facility] Cardiology Services 1 [place] [address] Angelito Alegria, CHILDCARE TEACHER, BRANCH CHIEF #2 [facility] [address] [place] [address] Discharge Disposition: Discharged to home or Selfcare documented as of this encounter Visit Diagnoses Diagnosis Essential hypertension Unspecified essential hypertension documented in this encounter Additional Health Concerns Infection Onset Date Last Indicated Resolved Time COVID - 19 08/01/2024 08/01/2024 08/01/2024 3:20 PM CDT Assessment Noted Time PHQ-9 Depression Total Score: 0 09/17/19 11:00 AM CDT documented as of this encounter Care Teams Urologist Md Relationship Specialty Start Date End Date Justen Gale MD #[address] [address] PCP - General Family Medicine 10/17/17 David Roberts CHILDCARE TEACHER, BRANCH CHIEF #2 [place] [address] Nurse Practitioner Advanced Practice Nurse 01/31/22 Annel Rod MD #[address] [address] Consulting Physician Endocrinology 07/01/22 documented as of this encounter
--- OUTSIDE RECORDS SUMMARY | 2024-09-26 23:43 | XMS_ITS | Encounter Summary ---
Author Organization [facility] Address [address] [place] [address] Phone Care Team Providers Care Gear Shaper Name Role Phone Justen Gale MD Primary Care Provider David Roberts APRN, CUSTOMER RETENTION REPRESENTATIVE Unavailable Annel Rod MD Unavailable Reason for Visit * Reason Comments Medication Refill Encounter Details Date Type Department Care Team (Late st Contact Info) Description 02/07/2023 Refill [facility] #2 [place] [address] Pili Elkins APRN, CUSTOMER RETENTION REPRESENTATIVE #[address] [address] Medication Refill Social History Tobacco [...] Medical Group - Endocrinology [facility] #2 [place] [address] Annel Rod MD #2 [facility] [address] [place] [address] 11/13/2024 2:00 PM CDT Appointment [facility] Cardiology Services 1 [place] [address] Angelito Alegria APRN, CUSTOMER RETENTION REPRESENTATIVE #2 [facility] [address] [place] [address] Discharge Disposition: Discharged to home or Selfcare documented as of this encounter Visit Diagnoses Diagnosis Essential hypertension Unspecified essential hypertension documented in this encounter Additional Health Concerns Infection Onset Date Last Indicated Resolved Time COVID - 19 08/01/2024 08/01/2024 08/01/2024 3:20 PM CDT Assessment Noted Time PHQ-9 Depression Total Score: 8 01/18/20 2:24 PM CDT documented as of this encounter Care Teams Gear Shaper Relationship Specialty Start Date End Date Justen Gale MD #2 [facility] [address] [place] [address] PCP - General Family Medicine 10/17/17 David Roberts APRN, CUSTOMER RETENTION REPRESENTATIVE #2 [place] [address] Nurse Practitioner Advanced Practice Nurse 01/31/22 Annel Rod MD #2 [facility] [address] [place] [address] Consulting Physician Endocrinology 07/01/22 documented as of this encounter
--- OUTSIDE RECORDS SUMMARY | 2024-09-26 23:43 | XMS_ITS | Encounter Summary ---
Author Organization [facility] Address [address] [place] [address] Phone Care Team Providers Care Deli Bakery Clerk Name Role Phone Justen Gale MD Primary Care Provider [phone] David Roberts APRN, PUBLICITY AGENT Unavailable [phone] Annel Rod MD Unavailable Reason for Visit * Reason Comments Medication Refill Encounter Details Date Type Department Care Team (Late st Contact Info) Description 07/06/2023 Refill [facility] - Family [facility] #2 [place] [address] Justen Gale MD #[address] [address] Medication Refill Social History Tobacco Use Types [...] Dept 06/27/23 Office Visit Justen Gale MD [facility] [place] 01/17/23 Office Visit Catrina Quiñonez MD [facility] Showing recent visits within past 270 [...] Description 10/22/2024 11:15 AM CDT Office Visit [facility] - Endocrinology - [place] #[address] [place] [address] Annel Rod MD #[address] [facility] [address] [place] [address] 11/13/2024 2:00 PM CDT Appointment [facility] Cardiology Services [address] [place] [address] Angelito Alegria, MACHINING SUPERVISOR, PUBLICITY AGENT #2 [facility] [address] [place] [address] Discharge Disposition: Discharged to home or Selfcare documented as of this encounter Visit Diagnoses Not on filedocumented in this encounter Additional Health Concerns Infection Onset Date Last Indicated Resolved Time COVID - 19 08/01/2024 08/01/2024 08/01/2024 3:20 PM CDT Assessment Noted Time PHQ-9 Depression Total Score: 8 01/18/20 23 2:24 PM CDT documented as of this encounter Care Teams Deli Bakery Clerk Relationship Specialty Start Date End Date Justen Gale MD #[address] [address] PCP - General Family Medicine 10/17/17 David Roberts APRN, PUBLICITY AGENT #2 [place] [address] Nurse Practitioner Advanced Practice Nurse 01/31/22 Annel Rod MD #[address] [address] Consulting Physician Endocrinology 07/01/22 documented as of this encounter
--- OUTSIDE RECORDS SUMMARY | 2024-09-26 23:43 | XMS_ITS | Encounter Summary ---
Author Organization [facility] Address [address] [place] [address] Phone Care Team Providers Care Maintenance And Custodian Supervisor Name Role Phone Jusetn Gale MD Primary Care Provider David Roberts APRN, MACHINE LONG GOODS HELPER Unavailable [phone] Annel Rod MD Unavailable Reason for Visit * Reason Onset Date Comments Pain 09/23/2024 Encounter Details Date Type Department Care Team (Late st Contact Info) Description 09/23/2024 Telephone [facility] [address] [place] [address] Justen Gale MD #[address] [address] Pain Social History Tobacco Use Types Packs/Day Years Used Date Smoking Tobacco: Never Smokeless Tobacco: Never Alcohol Use Standard Drinks/Week Comments No 0 (1 standard drink = 0.6 oz pur e alcohol) [facility] Utilities Answer Date Recorded In [...] do you attend chur or rastafari services? More than 4 times per year [...] Total Score - Questions 1-9 0 07/23 [facility] - Occupational [...] [facility] were you [facility] or living in a fpc (including now)? No 08/06/2024 Education Answer Date [...] encounter Miscellaneous Notes * Telephone Encounter - Dulce Wolff APRN, CNP - 09/23/2024 3:59 PM CDT Patient is currently on prednisone 10 mg prescribed by you. I refilled them when I saw her last week. Her RA is in october * Telephone Encounter - Coco Schuster RN - 09/23/2024 3:21 PM CDT SITUATION: Widespread pain BACKGROUND: Patient contacting PCP Per chart review, last office visit 09/06 ASSESSMENT: Symptom Description / Location: Patient diagnosed with Polymyalgia. Has an appointment with rheumatology on 10/28. Has been taking prednisone 10mg daily. States for the past 3 days, the prednisone has not been helping her pain. She is having the same pain she was having at her last office visit. I took the prednisone this morning and it was as if I took nothing. Patient would like to know if she can increase prednisone or if there are other recommendations. Pharmacy verified States if she does not do something today she will need to go to the emergency room. RECOMMENDATION: Please advise Prefers a Profilepasserhart message back. * Telephone Encounter - Sabrina Ortega - 09/23/2024 3:14 PM CDT Symptom: Pain - Severe widespread - patient has RA Outcome: Transfer to imaging aide queue Reason: Caller denied all higher acuity questions The caller accepted this outcome. Caller Denied: * Chest pain * Headache * Eye pain * Abdominal pain * Genital pain documented in this encounter Plan of Treatment Upcoming Encounters Date Type Department Care Team (Late st Contact Info) Description 10/22/2024 11:15 AM CDT Office Visit [facility]ology - [place] #2 [place] [address] Annel Rod MD #2 [facility] [address] [place] [address] 11/13/2024 2:00 PM CDT [facility]ointment [facility] Card[facility] 1 [place] [address] Angelito Alegria APRN, MACHINE LONG GOODS HELPER #2 [facility] [address] [place] [address] Discharge Disposition: Discharged to home or Selfcare documented as of this encounter Visit Diagnoses Not on filedocumented in this encounter Additional Health Concerns Assessment Noted Time PHQ-9 Depression Total Score: 0 08/02/19 25 1:09 PM CDT documented as of this encounter Care Teams Maintenance And Custodian Supervisor Relationship Specialty Start Date End Date Justen Gale MD #2 [facility] [address] [place] [address] PCP - General Family Medicine 10/17/17 David Roberts APRN, MACHINE LONG GOODS HELPER #2 [place] [address] Nurse Practitioner Advanced Practice Nurse 01/31/22 Annel Rod MD #[address] [address] Consulting Physician Endocrinology 07/01/22 documented as of this encounter
--- OUTSIDE RECORDS SUMMARY | 2024-09-26 23:43 | XMS_ITS | Clinical Summary ---
Author Organization [facility] Address [address] [place] [address] Phone Care Team Providers Care Lead Refiner Name Role Phone Justen Gale MD Primary Care Provider [phone] Allergies Active Allergy Reactions Criticality Noted Date [...] - 6.0 % 09/29/2017 10:[email or web address] EST. AVG GLUCOSE, A1C 186 mg/dL 09/29/2017 10:28 AM CDT [email or web address] [facility] Blood Venipuncture / Unknown 09/28/2017 8:41 PM CDT 09/28/2017 8:46 PM CDT Narrative [facility] - 09/29/2017 10:28 AM CDT HGB A1C INTERPRETATION NORMAL: <5.7% PRE-DIABETES: 5.7 - 6.4% DIABETES: 6.5% OR GREATER us Francisco Castaneda MD CHEMISTRY ORDERABLES Final Resul t [facility] [employer] [facility]# [id number] [address] [facility] [place] [place] [address] * (ABNORMAL) LIPID PANEL (09/28/2017 8:41 PM CDT) CHOLESTEROL 174 <200 mg/dL 09/30/2017 2:45 AM CDT [facility] [employer] [facility] TRIGLYCERIDE 109 <150 mg/dL 09/30/2017 2:45 AM CDT [facility] [employer] [facility] HDL 45 40 - 59 mg/dL 09/30/2017 2:45 AM CDT [facility] [employer] [facility] LDL CALCULATED 107(H) <100 mg/dL 09/30/2017 2:45 AM CDT [facility] [employer] [facility] NON-HDL CHOLESTEROL 129 <130 mg/dL 09/30/2017 2:45 AM CDT [facility] [employer] [facility] Blood Venipuncture / Unknown 09/28/2017 8:41 PM CDT 09/28/2017 8:46 PM CDT Narrative [facility] - 09/30/2017 2:45 AM CDT TOTAL [...] Castaneda MD CHEMISTRY ORDERABLES Final Resul t [facility] [employer] [facility] [id number] [address] [employer] [facility] [employer] [facility] [place] [address] from Last 3 Months or Most Recently Relevant to Health [place] [address] Advance Directives For more information, please contact: [phone] * Full Code (Latest Code Status on File) Date Activated Date Inactivated Comments 09/29/2017 7:45 AM 09/30/2017 9:14 PM * Full Code Date Activated Date Inactivated Comments 09/29/2017 1:25 AM 09/29/2017 7:45 AM Care Teams Lead Refiner Relationship Specialty Start Date End Date Justen Gale MD [address] [facility] [address] [place] [address] PCP - General Cardiovascular Disease 09/14/17
--- OUTSIDE RECORDS SUMMARY | 2024-09-26 23:43 | XMS_ITS | Encounter Summary ---
Author Organization [facility] Address [address] [place] [address] Phone Care Team Providers Care Workflow Developer Name Role Phone Justen Gale MD Primary Care Provider David Roberts APRN, COINING PRESS OPERATOR Unavailable Annel Rod MD Unavailable Reason for Visit * Reason Comments Medication Refill Encounter Details Date Type Department Care Team (Late st Contact Info) Description 09/30/2023 Refill [facility] Endocrinology - [place] #2 [place] [address] Annel Rod MD #[address] [address] Medication Refill Social History Tobacco [...] Description 10/22/2024 11:15 AM CDT Office Visit [facility] Group - Endocrinology [facility] #2 [place] [address] Annel Rod MD #[address] [address] 11/13/2024 2:00 PM CDT [facility]ointment [facility] Services 1 [place] [address] Angelito Alegria APRN, NETTA #[address] [address] Discharge Disposition: Discharged to home or Selfcare documented as of this encounter Visit Diagnoses Not on filedocumented in this encounter Additional Health Concerns Infection Onset Date Last Indicated Resolved Time COVID - 19 08/01/2024 08/01/2024 08/01/2024 3:20 PM CDT Assessment Noted Time PHQ-9 Depression Total Score: 8 01/18/20 2:24 PM CDT documented as of this encounter Care Teams Workflow Developer Relationship Specialty Start Date End Date Justen Gale MD #[address] [place] [address] PCP - General Family Medicine 10/17/17 David Roberts APRN, COINING PRESS OPERATOR #2 [place] [address] Nurse Practitioner Advanced Practice Nurse 01/31/22 Annel Rod MD #[address] [address] Consulting Physician Endocrinology 07/01/22 documented as of this encounter
--- OUTSIDE RECORDS SUMMARY | 2024-09-26 23:43 | XMS_ITS | Encounter Summary ---
Author Organization [facility] Address [address] [place] [address] Phone Care Team Providers Care Resident Care Spec Name Role Phone Lavonne Hathaway MD Primary Care Provider [phone] Liu Jerez MD Unavailable [phone] Albert Corbin MD Unavailable [phone] Justen Gale MD Primary Care Provider [phone] Lavonne Hathaway MD Primary Care Provider + [phone] Justen Gale MD Primary Care Provider [phone] Khris Arthur MD Unavailable [phone] Ko Melendez MD Unavailable [phone] John Paul Moyer MD Unavailable Annel Rod MD Unavailable Anali MARSHALL MD, Carlos M. Unavailable [phone] Encounter Details Date Type Department Care Team ([facility] Contact Info) Description 05/15/2017 Orders Only [facility] Scanning, Provider Social History Tobacco Use Types Packs/Day Years Used Date Smoking Tobacco: Former Alcohol Use Standard Drinks/Week Comments No 0 (1 standard drink = 0.6 oz pur e alcohol) Comments Unknown Sex and Gender Information Value Date Recorded Sex Assigned at Not on file Legal Sex Female 12:24 AM NEEDLE PROCESS FELT GOODS SUPERVISOR Gender Identity Not on file Sexual [...] COVID: Recovered 02/10/2022 02/10/2022 06/10/2022 3:05 AM NEEDLE PROCESS FELT GOODS SUPERVISOR Exposure, COVID-19 Comment:Added automatically based on COVID19 lab answers indicating exposure risk 02/11/2022 02/11/2022 02/15/2022 9:06 AM C DT COVID: Suspected 05/14/2022 05/14/2022 05/14/2022 10:41 AM NEEDLE PROCESS FELT GOODS SUPERVISOR COVID: Suspected 06/07/2022 06/07/2022 06/07/2022 12:28 PM NEEDLE PROCESS FELT GOODS SUPERVISOR COVID: Suspected 06/21/2022 06/21/2022 06/21/2022 2:12 AM NEEDLE PROCESS FELT GOODS SUPERVISOR COVID: Suspected 10/05/2022 10/05/2022 10/05/2022 7:40 PM CDT COVID: Suspected 01/04/2024 01/04/2024 01/04/2024 10:30 PM CDT COVID: Suspected 02/14/2024 02/14/2024 02/15/2024 12:36 AM CDT COVID: Suspected 07/01/2024 07/01/2024 07/01/2024 2:53 PM CDT COVID: Suspected 07/01/2024 07/01/2024 07/02/2024 3:05 AM CDT documented as of this encounter Care Teams Resident Care Spec Relationship Specialty Start Date End Date Lavonne Hathaway MD [address] [place] [address] [place] [address] PCP - General 08/16/16 08/17/17 Justen Gale MD [address] [place] [address] [address] PCP - General 08/18/17 08/22/17 Lavonne Hathaway MD [address] [place] [address] [place] [address] PCP - General Family Medicine 08/23/17 10/08/17 Justen Gale MD 2 [facility] [place] [address] [address] PCP - General 10/09/17 Liu Jerez MD [address] [place] [address] [place] [address] Consulting Physician Gastroenterology 07/28/17 [place] [address] [facility] [address] [place] [address] Consulting Physician Pulmonary Disease 08/03/17 Khris Arthur MD [address] [facility] [address] [place] [address] Medical Oncologist/Planishing Hammer Operator Medical Oncology 10/23/17 [place] [address] [facility] [address] [place] [address] Surgeon Orthopedic Surgery 10/23/17 [place] [address] [facility] [address] [place] [address] Consulting Physician Pain Management 10/23/17 [place] [address] [facility] [address] [place] [address] Referring Physician General Surgery 01/26/18 [place] [address] [facility] [address] [place] [address] Consulting Physician Neurology 01/26/18 documented as of this encounter
--- OUTSIDE RECORDS SUMMARY | 2024-09-26 23:43 | XMS_ITS | Encounter Summary ---
Author Organization [facility] Address [address] [place] [address] Phone Care Team Providers Care Radio Engineer Name Role Phone Justen Gale MD Primary Care Provider [phone] David Roberts APRN, WIRELESS SALES REPRESENTATIVE Unavailable Annel Rod MD Unavailable Reason for Visit * Reason Comments Medication Refill Encounter Details Date Type Department Care Team (Late st Contact Info) Description 07/12/2022 Refill [facility] #2 [place] [address] Justen Gale MD #[address] [address] Medication Refill Social History Tobacco Use Types [...] 07/05/22 Office Visit Pili Elkins APRN, NETTA [facility] [place] 05/02/22 Office Visit Justen Gale MD [facility] [place] 03/03/22 Office Visit Pili Elkins APRN, WIRELESS SALES REPRESENTATIVE [facility] [place] 01/03/22 Office Visit Dannielle Berg PAC [facility] [place] 12/07/21 Office Visit Pili Elkins APRN, NETTA [facility] [place] 11/09/21 Office Visit Pili Elkins APRN, NETTA [facility] [place] 10/08/21 Office Visit Angelito Alegria APRN, NETTA [facility] [place] 08/30/21 Office [facility] Show[facility] visits within past 365 [...] Office Visit [facility] Endocrin[facility] #2 [place] [address] Annel Rod MD #[address] [address] 11/13/2024 2:00 PM CDT [facility] 1 [place] [address] Angelito Alegria APRN, WIRELESS SALES REPRESENTATIVE #[address] [address] Discharge Disposition: Discharged to home or Selfcare documented as of this encounter Visit Diagnoses Not on filedocumented in this encounter Additional Health Concerns Infection Onset Date Last Indicated Resolved Time COVID - 19 08/01/2024 08/01/2024 08/01/2024 3:20 PM CDT Assessment Noted Time PHQ-9 Depression Total Score: 0 07/21/19 3:00 PM CDT documented as of this encounter Care Teams Radio Engineer Relationship Specialty Start Date End Date Justen Gale MD #[address] [address] PCP - General Family Medicine 10/17/17 David Roberts APRN, WIRELESS SALES REPRESENTATIVE #2 [place] [address] Nurse Practitioner Advanced Practice Nurse 01/31/22 Annel Rod MD #[address] [address] Consulting Physician Endocrinology 07/01/22 documented as of this encounter
--- OUTSIDE RECORDS SUMMARY | 2024-09-26 23:43 | XMS_ITS | Encounter Summary ---
Author Organization [facility] Address [address] [place] [address] Phone Care Team Providers Care Product Strategy Director Name Role Phone Justen Gale MD Primary Care Provider [phone] David oRberts APRN, EMERGENCY VEHICLE OPERATOR Unavailable Annel Rod MD Unavailable Reason for Visit * Reason Comments Medication Refill Encounter Details Date Type Department Care Team (Late st Contact Info) Description 02/07/2023 Refill [facility] #2 [place] [address] Catrina Quiñonez MD #2 [place] [address] Medication Refill Social History Tobacco Use Types [...] 03/03/22 Office Visit Pili Elkins APRN, NETTA [facility] [place] Showing recent visits within past 365 [...] Visit [facility] - Endocrinology - [place] #2 [place] [address] Annel Rod MD #[address] [address] 11/13/2024 2:00 PM CDT Appointment [facility] Cardiology Services 1 [place] [address] Angelito Alegria, MORNING NEWS ANCHOR, EMERGENCY VEHICLE OPERATOR #[address] [address] Discharge Disposition: Discharged to home or Selfcare documented as of this encounter Visit Diagnoses Not on filedocumented in this encounter Additional Health Concerns Infection Onset Date Last Indicated Resolved Time COVID - 19 08/01/2024 08/01/2024 08/01/2024 3:20 PM CDT Assessment Noted Time PHQ-9 Depression Total Score: 8 01/18/20 2:24 PM CDT documented as of this encounter Care Teams Product Strategy Director Relationship Specialty Start Date End Date Justen Gale MD #[address] [address] PCP - General Family Medicine 10/17/17 David Roberts MORNING NEWS ANCHOR, EMERGENCY VEHICLE OPERATOR #2 [place] [address] Nurse Practitioner Advanced Practice Nurse 01/31/22 Annel Rod MD #[address] [address] Consulting Physician Endocrinology 07/01/22 documented as of this encounter
--- OUTSIDE RECORDS SUMMARY | 2024-09-26 23:43 | XMS_ITS | Encounter Summary ---
Author Organization [facility] Address [address] [place] [address] Phone Care Team Providers Care Chair Post Machine Operator Name Role Phone Justen Gale MD Primary Care Provider [phone] David Roberts APRN, OPERATIONAL METEOROLOGIST Unavailable [phone] Annel Rod MD Unavailable Reason for Visit * Reason Comments Medication Refill Encounter Details Date Type Department Care Team (Late st Contact Info) Description 03/02/2023 Refill [facility] #2 [place] [id number] Justen Gale MD #[address] [address] Medication Refill Social History Tobacco Use Types [...] Tamika Villarreal RN - 03/02/2023 8:51 AM AUTOMOTIVE FLEET SUPERVISOR Medication failed the protocol, provider to review [...] Dept 01/17/23 Office Visit Catrina Quiñonez MD [facility] 09/16/22 Office Visit Pili Elkins APRN, CNP [facility] 07/05/22 Office Visit Pili Elkins APRN, NETTA [facility] 05/02/22 Office Visit Justen Gale MD [facility] 03/03/22 Office Visit Pili Elkins APRN, NETTA [facility] Showing recent visits within past 365 days and meeting all other requirements Future Appointments No visits were found meeting these conditions. Showing future appointments within next 90 days and meeting all other requirements MOTIVE FLEET SUPERVISOR documented in this encounter Plan of Treatment Upcoming Encounters Date Type Department Care Team (Late st Contact Info) Description 10/22/2024 11:15 AM CDT Office Visit [facility] - [place] #2 [place] [address] Annel Rod MD #[address] [phone] 11/13/2024 2:00 PM CDT Appointment [facility] 1 [place] [address] Angelito Alegria, LITHOGRAPHIC PLATE MAKER, OPERATIONAL METEOROLOGIST #[address] [address] Discharge Disposition: Discharged to home or Selfcare documented as of this encounter Visit Diagnoses Not on filedocumented in this encounter Additional Health Concerns Infection Onset Date Last Indicated Resolved Time COVID - 19 08/01/2024 08/01/2024 08/01/2024 3:20 PM CDT Assessment Noted Time PHQ-9 Depression Total Score: 8 01/18/20 2:24 PM CDT documented as of this encounter Care Teams Chair Post Machine Operator Relationship Specialty Start Date End Date Justen Gale MD #[address] [address] PCP - General Family Medicine 10/17/17 David Roberts APRN, OPERATIONAL METEOROLOGIST #2 [place] [address] Nurse Practitioner Advanced Practice Nurse 01/31/22 Annel Rod MD #[address] [address] Consulting Physician Endocrinology 07/01/22 documented as of this encounter
--- OUTSIDE RECORDS SUMMARY | 2024-09-26 23:43 | XMS_ITS ---
Author Organization [facility] Address [address] [place] [address] Care Team Providers Care Flat Surfacer Name Role Phone Justen Gale MD Primary Care Provider [phone] Active Problems Problem Noted Date Diagnosed Date [...]
--- OUTSIDE RECORDS SUMMARY | 2024-09-26 23:43 | XMS_ITS | Encounter Summary ---
Author Organization [facility] Address [address] [place] [address] Phone Care Team Providers Care Commercial Account Manager Name Role Phone Liu Jerez MD Unavailable Albert Corbin MD Unavailable [phone] Justen Gale MD Primary Care Provider [phone] Khris Arthur MD Unavailable [phone] Ko Melendez MD Unavailable John Paul Moyer MD Unavailable Annel Rod MD Unavailable Anali MARSHALL MD, Carlos M. Unavailable [phone] Encounter Details Date Type Department Care Team [...] on file Legal Sex Female 12:24 AM SHAPER SETTER Gender Identity Not on file Sexual [...] COVID: Recovered 02/10/2022 02/10/2022 06/10/2022 3:05 AM SHAPER SETTER Exposure, COVID-19 Comment:Added automatically based on COVID19 lab answers indicating exposure risk 02/11/2022 02/11/2022 02/15/2022 9:06 AM C DT COVID: Suspected 05/14/2022 05/14/2022 05/14/2022 10:41 AM SHAPER SETTER COVID: Suspected 06/07/2022 06/07/2022 06/07/2022 12:28 PM SHAPER SETTER COVID: Suspected 06/21/2022 06/21/2022 06/21/2022 2:12 AM SHAPER SETTER COVID: Suspected 10/05/2022 10/05/2022 10/05/2022 7:40 PM CDT COVID: Suspected 01/04/2024 01/04/2024 01/04/2024 10:30 PM CDT COVID: Suspected 02/14/2024 02/14/2024 02/15/2024 12:36 AM CDT COVID: Suspected 07/01/2024 07/01/2024 07/01/2024 2:53 PM CDT COVID: Suspected 07/01/2024 07/01/2024 07/02/2024 3:05 AM CDT documented as of this encounter Care Teams Commercial Account Manager Relationship Specialty Start Date End Date Justen Gale MD 2 [facility] [address] [place] [address] PCP - General 10/09/17 Liu Jerez MD Consulting Physician Gastroenterology 07/28/17 [place] [address] [facility] [address] [place] [address] Consulting Physician Pulmonary Disease 08/03/17 [place] [address] [place] [address] [address] [place] [address] Medical Oncologist/Gambling Broker Medical Oncology 10/23/17 [place] [address] [address] Surgeon Orthopedic Surgery 10/23/17 [place] [address] [facility] [address] [place] [address] Consulting Physician Pain Management 10/23/17 [place] [address] [address] Referring Physician General Surgery 01/26/18 [place] [address] [facility] [address] [place] [address] Consulting Physician Neurology 01/26/18 documented as of this encounter
--- OUTSIDE RECORDS SUMMARY | 2024-09-26 23:43 | XMS_ITS | Encounter Summary ---
Author Organization [facility] Address [address] [place] [address] Phone Care Team Providers Care Percolator Operator Name Role Phone Justen Gale MD Primary Care Provider David Roberts APRN, QUALITY IMPROVEMENT COORDINATOR (RN) Unavailable Annel Rod MD Unavailable Reason for Visit * Reason Onset Date Comments Breathing Problem 08/07/2024 Muscle Pain 08/07/2024 Encounter Details Date Type Department Care Team (Late st Contact Info) Description 08/07/2024 Nurse Triage [facility] [address] [place] [address] Justen Gale MD #[address] [address] Breathing Problem; Muscle Pain Social History Tobacco Use Types Packs/Day Years Used Date Smoking Tobacco: Never Smokeless Tobacco: Never Alcohol Use Standard Drinks/Week Comments No 0 (1 standard drink = 0.6 oz pur e alcohol) [facility] Utilities Answer Date Recorded In [...] often do you attend chur ch or yazidism services? More than 4 times [...] Score - Questions 1-9 0 07/23 [facility] - [...] any time in the past 12 m [facility], were you homeless or living in a residential (including now)? No 08/06/2024 Education Answer Date [...] She reports this was discussed with the front facer and provider was to be notified in [...] Encouraged caller to bring cell phone and loin puller to contact EMS 911 if symptoms [...] (e.g., disoriented, slurred speech) Protocols used: Breathing [id number] * Telephone Encounter - Neha Tomlinson - 08/07/2024 1:30 PM CDT Symptoms: Altered Mental Status, Body Aches, Breathing Trouble Outcome: Warm transfer to an emergent RN NOW! Reason: Trouble walking The caller accepted this outcome. documented in this encounter Plan of Treatment Upcoming Encounters Date Type Department Care Team (Late st Contact Info) Description 10/22/2024 11:15 AM CDT Office Visit [facility] - Endocrinology [facility] #2 [place] [address] Annel Rod MD #2 [facility] [address] [place] [address] 11/13/2024 2:00 PM CDT [facility] 1 [place] [address] Angelito Alegria APRN, QUALITY IMPROVEMENT COORDINATOR (RN) #2 [facility] [address] [place] [address] Discharge Disposition: Discharged to home or Selfcare documented as of this encounter Visit Diagnoses Not on filedocumented in this encounter Additional Health Concerns Assessment Noted Time PHQ-9 Depression Total Score: 0 08/02/19 25 1:09 PM CDT documented as of this encounter Care Teams Percolator Operator Relationship Specialty Start Date End Date Justen Gale MD #2 [facility] [address] [place] [address] PCP - General Family Medicine 10/17/17 David Roberts APRN, NETTA #2 [place] [address] Nurse Practitioner Advanced Practice Nurse 01/31/22 Annel Rod MD #2 [facility] [address] [place] [address] Consulting Physician Endocrinology 07/01/22 documented as of this encounter
--- OUTSIDE RECORDS SUMMARY | 2024-09-26 23:43 | XMS_ITS | Encounter Summary ---
Author Organization [facility] Address [address] [place] [address] Phone Care Team Providers Care Cage/Vault Supervisor Name Role Phone Justen Gale MD Primary Care Provider [phone] David Roberts APRN, SCUBA DIVER Unavailable Annel Rod MD Unavailable Reason for Visit * Reason Comments Medication Refill Encounter Details Date Type Department Care Team (Late st Contact Info) Description 07/14/2022 Refill [facility] Family Medicine [facility] #2 [place] [address] Justen Gale MD #[address] [address] Medication Refill Social History Tobacco Use Types [...] Visit [facility] End[facility]ology - [place] #2 [place] [address] Annel Rod MD #2 [facility] [address] [place] [address] 11/13/2024 2:00 PM CDT [facility] 1 [place] [address] Angelito Alegria APRN, SCUBA DIVER #2 [facility] [address] [place] [address] Discharge Disposition: Discharged to home or Selfcare documented as of this encounter Visit Diagnoses Not on filedocumented in this encounter Additional Health Concerns Infection Onset Date Last Indicated Resolved Time COVID - 19 08/01/2024 08/01/2024 08/01/2024 3:20 PM CDT Assessment Noted Time PHQ-9 Depression Total Score: 0 07/21/19 21 3:00 PM CDT documented as of this encounter Care Teams Cage/Vault Supervisor Relationship Specialty Start Date End Date Justen Gale MD #2 [facility] [address] [place] [address] PCP - General Family Medicine 10/17/17 David Roberts, CELERY TIER, SCUBA DIVER #2 [place] [address] Nurse Practitioner Advanced Practice Nurse 01/31/22 Annel Rod MD #2 [facility] [address] [place] [address] Consulting Physician Endocrinology 07/01/22 documented as of this encounter
--- OUTSIDE RECORDS SUMMARY | 2024-09-26 23:43 | XMS_ITS | Encounter Summary ---
Author Organization [facility] Address [address] [place] [address] Phone Care Team Providers Care Core Stripper Name Role Phone Justen Gale MD Primary Care Provider David Roberts APRN, MACHINE FUR CLEANER Unavailable [phone] Annel Rod MD Unavailable Reason for Visit * Reason Comments Medication Refill Encounter Details Date Type Department Care Team (Late st Contact Info) Description 03/05/2023 Refill [facility] - Family Medicine [facility] #2 [place] [address] Pili Elkins APRN, MACHINE FUR CLEANER #[address] [address] Medication Refill Social History Tobacco [...] discontinued on 10/19/2022 by Justen Gale MD [employer] documented in this encounter Plan of Treatment Upcoming Encounters Date Type Department Care Team (Late st Contact Info) Description 10/22/2024 11:15 AM CDT Office Visit [facility] - [place] #2 [place] [address] Annel Rod MD #2 [facility] [address] [place] [address] 11/13/2024 2:00 PM CDT [facility] 1 [place] [address] Angelito Alegria APRN, MACHINE FUR CLEANER #2 [facility] [address] [place] [address] Discharge Disposition: Discharged to home or Selfcare documented as of this encounter Visit Diagnoses Diagnosis Essential hypertension Unspecified essential hypertension documented in this encounter Additional Health Concerns Infection Onset Date Last Indicated Resolved Time COVID - 19 08/01/2024 08/01/2024 08/01/2024 3:20 PM CDT Assessment Noted Time PHQ-9 Depression Total Score: 8 01/18/20 2:24 PM CDT documented as of this encounter Care Teams Core Stripper Relationship Specialty Start Date End Date Justen Gale MD #2 [facility] [address] [place] [address] PCP - General Family Medicine 10/17/17 David Roberts APRN, NETTA #2 [place] [address] Nurse Practitioner Advanced Practice Nurse 01/31/22 Annel Rod MD #2 [facility] [address] [place] [address] Consulting Physician Endocrinology 07/01/22 documented as of this encounter
--- OUTSIDE RECORDS SUMMARY | 2024-09-26 23:43 | XMS_ITS | Encounter Summary ---
Author Organization [facility] Address [address] [place] [address] Phone Care Team Providers Care Warp Knitting Machine Operator Name Role Phone Justen Gale MD Primary Care Provider [phone] David Roberts APRN, SHERIFF'S SERGEANT Unavailable Annel Rod MD Unavailable Reason for Visit * Reason Comments Medication Refill Encounter Details Date Type Department Care Team (Late st Contact Info) Description 08/30/2022 Refill [facility] - Family Medicine [facility] #2 [place] [address] Justen Gale MD #[address] [address] Medication Refill Social History Tobacco Use Types [...] Visit Pili Elkins APRN, NETTA [facility] [place] 05/02/22 Office Visit Justen Gale MD [facility] [place] 03/03/22 Office Visit Pili Elkins APRN, NETTA [facility] [place] 01/03/22 Office Visit Dannielle Berg PAC [facility] [place] 12/07/21 Office Visit Pili Elkins APRN, NETTA [facility] [place] 11/09/21 Office Visit Pili Elkins APRN, NETTA [facility] [place] 10/08/21 Office Visit Angelito Alegria APRN, NETTA [facility] [place] 08/30/21 Office Visit [facility] Show[facility] recent visits within past 365 days [...] [facility] - [place] #2 [place] [address] Annel Rod MD #[address] [address] 11/13/2024 2:00 PM CDT Appointment [facility] 1 [place] [address] Angelito Alegria, ORAL SURGERY PHYSICIAN, SHERIFF'S SERGEANT #[address] [address] Discharge Disposition: Discharged to home or Selfcare documented as of this encounter Visit Diagnoses Not on filedocumented in this encounter Additional Health Concerns Infection Onset Date Last Indicated Resolved Time COVID - 19 08/01/2024 08/01/2024 08/01/2024 3:20 PM CDT Assessment Noted Time PHQ-9 Depression Total Score: 0 07/21/19 3:00 PM CDT documented as of this encounter Care Teams Warp Knitting Machine Operator Relationship Specialty Start Date End Date Justen Gale MD #[address] [address] PCP - General Family Medicine 10/17/17 David Roberts, ORAL SURGERY PHYSICIAN, SHERIFF'S SERGEANT #2 [place] [address] Nurse Practitioner Advanced Practice Nurse 01/31/22 Annel Rod MD #[address] [address] Consulting Physician Endocrinology 07/01/22 documented as of this encounter
--- OUTSIDE RECORDS SUMMARY | 2024-09-26 23:43 | XMS_ITS | Clinical Summary ---
Author Organization [facility] Address [address] [place] [address] Phone Care Team Providers Care Car Dumper Operator Helper Name Role Phone Justen Gale MD Primary Care Provider [phone] David Roberts APRN, [employer] Unavailable [phone] Annel Rod MD Unavailable Allergies Active Allergy Reactions Criticality Noted Date Comments Amlodipine Itching 08/01/2024 Azithromycin Hives 08/03/2024 Ceftriaxone Anaphylaxis High 09/14/2017 Cephalosporins Anaphylaxis High 03/22/2017 Chlorhexidine Rash 09/02/2024 Ciprofloxacin Rash 08/01/2024 Clindamycin Nausea 08/19/2024 Nausea/vomiting Dermatological Products, Misc. Hives,Itching High 10/12/2021 SURGICAL [...] Strip 3 02/11/20 20 Active Misc. Devices MiscIndications :LUL (obstructive sleep apnea) Supply and instructions: 1 Each 09/10/19 21 Active OneTouch Delica Lancets 33G Misc 1 Lancet by Does not apply route 4 times daily. 400 Lancet 3 03/09/20 21 Active naloxone HCl (Narcan) 4 MG/0.1ML Liquid 05/13/19 22 Active diphenhydrAMINE (BENADRYL) 25 MG Capsule Take [...] 23 Active Additional Information Patient taking differently: ADMINSTER 34 UNITS UNDER THE SKIN BEFORE EACH MEAL, ISF OF 1:15 OF IF> 150MG/DL MAX DAILY DOSE OF 100 UNITS, Reported on 09/06/2024 Continuous Blood Gluc Sensor (FreeStyle Eileen 2 Sensor) [facility] APPLY 1 SENSOR AND WEAR FOR 14 DAYS TO CHECK BLOOD SUGAR 6 Each 1 08/07/19 24 Active albuterol 108 (90 Base) MCG/ACT Aerosol Solution take 2 Puffs by inhalation. 04/19/20 21 Active gabapentin (NEURONTIN) 300 MG Capsule Take 300 mg by mouth. 06/20/19 24 Active HYDROcodone-sara taminophen (NORCO) 10-325 MG Tablet Take 1 Tablet by mouth. 12/28/19 24 Active Multiple Vitamins-Minera ls (WOMENS MULTI PO) [...] Continuous Glucose Sensor (FreeStyle Eileen 2 Sensor) Mis 1 Each by Does not apply route every 14 days. Change sensor every 14 days. E11.42, insulin dependent 6 Each 1 04/25/19 25 Active Additional Information Patient not taking.Reported on 09/06/2024 Continuous Glucose Sensor (FreeStyle Eileen 2 Sensor) Mis 1 Each by Does not apply route every 14 days. 6 Each 1 08/03/19 25 Active Additional Information Patient not taking.Reported on 09/06/2024 HumaLOG KwikPen 100 UNIT/ML Solution Pen-injector INJECT 28 UNITS UNDER SKIN BEFORE EACH MEAL.; ISF OF 1:15 OF IF>150MG/DL; MAX DAILY DOSE OF 100 UNITS 90 mL 08/06/19 25 Active Additional Information Patient not taking.Reported on 09/06/2024 insulin glargine (Lantus SoloStar) 100 UNIT/ML Solution Pen-injector 40 Units by Subcutaneous route every morning. 30 mL 08/06/19 25 Active predniSONE (DELTASONE) 10 MG TabletIndicatio ns:Polymyalgia Rheumatica Take 1 Tablet by mouth daily. Do not stop taking until cleared by PCP office or district court judge. Will need to taper off slowly. Indications: Polymyalgia Rheumatica 30 Tablet 09/07/19 25 Active montelukast (SINGULAIR) 10 MG TabletIndicatio ns:Seasonal Allergic Rhinitis Take 1 Tablet by mouth every evening. Indications: Hayfever 90 Tablet 09/07/19 25 Active clotrimazole (MYCELEX) 10 MG TrocheIndicatio ns:Oropharyngea l Candidiasis Take 1 Rozina by mouth 5 times daily. Indications: Candidiasis Fungal Infection of the Oropharynx 50 Rozina 09/07/19 25 Active predniSONE (DELTASONE) 10 MG TabletIndicatio ns:Polymyalgia Rheumatica Take 1 Tablet by mouth daily. Do not stop taking until cleared by PCP office or district court judge. Will need to taper off slowly. Indications: Polymyalgia Rheumatica 30 Tablet 08/10/19 25 025 Discontinu ed(Reorder ) amoxicillin-cla vulanate (AUGMENTIN) 875-125 MG Tablet Take 1 Tablet by mouth 2 times daily for 7 days. 14 Tablet 08/21/19 25 025 furosemide (LASIX) 20 MG TabletIndicatio ns:Edema Take 0.5 Tablets by mouth daily for 3 days. Indications: Edema 3 Tablet 09/07/19 25 025 Active Problems Problem Noted Date Diagnosed [...] Overview: Added automatically from request for surgery [id number] Lymphedema of left upper extremity 08/09/2016 Pulmonary embolism 08/09/2016 Overview (11/09/2017): Last Assessment & Plan: On Rivaroxaban Arthralgia of ankle 01/26/2015 Cellulitis of breast 11/11/2014 Encounters Date Type Department Care Team Description 09/23/2024 Nurse Triage [facility] [address] [place] [phone] Justen Gale MD Breathing Problem; Pain 09/23/2024 [facility] [address] [place] [phone] Justen Gale MD Pain 09/11/2024 Telephone [facility] [address] [place] [phone] Justen Gael MD Follow-up 09/06/2024 1:15 PM CDT [facility] [place] [phone] Dulce Wolff N, BUSINESS PERFORMANCE MANAGER, [employer] Enlarged tonsils (Primary Dx); Polymyalgia rheumatica (HCC); Oral candidiasis; Edema, unspecified type Discharge Disposition: Discharged to home or Selfcare 09/06/2024 Travel 09/03/2024 Telephone [facility] [address] [place] [address] Justen Gale MD Follow-up 09/02/2024 Nurse [facility] [address] [place] [phone] Justen Gale MD Sore Throat 08/20/2024 1:15 PM CDT Office Visit [facility] [address] [place] [phone] Justen Gale MD Acute maxillary sinusitis, recurrence not specified (Primary Dx) Discharge Disposition: Discharged to home or Selfcare 08/20/2024 Travel 08/19/2024 Telephone [facility] [address] [place] [phone] Justen Gale MD Advice Only; Follow-up 08/14/2024 Telephone [facility] [place] [address] [place] [phone] Annel Rod MD High Blood Sugar 08/13/2024 Nurse [facility]riage [facility] [address] [place] [address] [phone] Justen Gale MD High Blood Sugar 08/07/2024 9:20 AM CDT Lab [facility] [address] [address] Lab, [place] [facility]/Ancillary Body aches; Diffuse arthralgia Discharge Disposition: Discharged to home or Selfcare 08/07/2024 8:30 AM CDT Office Visit [facility] [address] [place] [address] Angelito Alegria APRN, CNP Diffuse arthralgia (Primary Dx); Dyspnea on exertion; Type 2 diabetes mellitus with diabetic polyneuropathy, with long-term current use of insulin (HCC) Discharge Disposition: Discharged to home or Selfcare 08/07/2024 Results Follow-Up [facility] [address] [place] [address] Angelito Alegria APRN, CNP CREATINE KINASE (CK) TOTAL, ERYTHROCYTE SEDIMENTATION RATE (ESR), C-REACTIVE PROTEIN (CRP) QUANT 08/07/2024 Nurse Triage [facility] Center [address] [place] [phone] Justen Gale MD Breathing Problem; Muscle Pain 08/06/2024 Travel 08/05/2024 MyChart RX Renewal [facility] [address] [place] [phone] Annel Rod MD Medication Renewal Reviewed 08/05/2024 Nurse Triage [facility] [address] [place] [address] [phone] Justen Gale MD Muscle Pain; Follow-up 08/03/2024 3:36 AM CDT - 08/03/2024 7:05 AM CDT Emergency [facility] Emergency [address] [place] [phone] Sergio Rivera MD Myalgia Discharge Disposition: Discharged to home or Selfcare 08/02/2024 Travel 08/02/2024 Nurse Triage [facility] [address] [place] [phone] Justen Gale MD Hemoptysis 08/02/2024 Telephone [facility] [address] [place] [phone] Justen Gale MD Results 08/02/2024 Telephone [facility] [address] [place] [phone] Angelito Alegria APRN, NETTA Results 08/02/2024 MyChart RX Renewal [facility] [address] [place] [address] Annel Rod MD Medication Renewal Reviewed 08/01/2024 2:13 PM CDT - 08/01/2024 4:16 PM CDT Emergency [facility] Emergency [address] [place] [phone] Jack Leiva MD Dyspnea on exertion Discharge Disposition: Discharged to home or Selfcare 08/01/2024 1:15 PM CDT Office Visit [facility] [address] [place] [phone] Angelito Alegria APRN, [employer] Body aches (Primary Dx) Discharge Disposition: Discharged to home or Selfcare 08/01/2024 Travel 08/01/2024 Nurse Triage [facility] [address] [place] [phone] Justen Gale MD Pain 07/22/2024 Telephone [facility] [address] [place] [phone] Justen Gale MD Appointment 07/11/2024 Nurse Triage [facility] [address] [place] [phone] Justen Gale MD Toe Problem from Last 3 Months Immunizations Immunization Administration Dates Next Due Covid-19 Vaccine, Vector-nr, Rs-ad26, Pf, 0.5 Ml ([employer]) 06/29/2020 Influenza Vaccine greater than 3 yrs [...] drink = 0.6 oz pur e alcohol) [facility] Superprotonicities Answer Date Recorded In the past 12 months has [employer] electric, gas, oil, or water [employer] threatened to shut off services in your [...] declined 08/06/2024 How often do you attend [facility] or nondenominational services? More than 4 times [...] Total Score - Questions 1-9 0 07/23 [facility] ional [facility] - Occupational Stress [...] Sign Reading Time Taken Comments Blood Pressure 150/82 09/06/2024 1:29 PM CDT Pulse 85 09/06/2024 1:29 PM CDT Temperature 36.3 C (97.3 F) 09/06/2024 1:29 PM CDT Respiratory Rate 16 09/06/2024 1:29 PM CDT Oxygen Saturation 96% 09/06/2024 1:29 PM CDT Inhaled Oxygen Concentration - - Weight 129.9 kg (286 lb 4.8 oz) 09/06/2024 1:29 PM CDT Height 152.4 cm (5') 09/06/2024 1:29 PM CDT Body Mass Index 55.91 09/06/2024 1:29 PM CDT Plan of Treatment Upcoming Encounters Date Type Department Care Team (Late st Contact Info) Description 10/22/2024 11:15 AM CDT Office Visit [facility] [address] [place] [phone] Annel Rod MD #[address] [facility] [address] [place] [address] 11/13/2024 2:00 PM CDT Appointment [facility] Services [address] [place] [phone] Angelito Alegria, BUSINESS PERFORMANCE MANAGER, [employer] #[address] [facility] [address] [place] [address] Discharge Disposition: Discharged to home or Selfcare [...] on patient's age to complete this topic Human Papillomavirus (HPV) Immunization Aged Out No longer eligible based on patient's age to complete this topic Meningococcal Immunization (ACWY) Aged Out No longer eligible based on patient's age to complete this topic Rotavirus Immunization Aged Out No lo nger eligible based on patient's age to complete this topic Procedures Procedure Name Priority Date/Time Associated Diagnosis Comments PAIN CONSULT 09/19/2024 12:[address] - HEAD/NECK 08/13/2024 12:00 AM CDT C-REACTIVE PROTEIN (CRP) QUANT Routine 08/07/2024 8:59 [...] - LOWER EXTREMITY 07/10/2024 12:00 AM CDT HEMOGLOBIN, A1C 10/02/2023 12:00 AM CDT HUMAN PAPILLOMA VIRUS (HPV) Routine 07/05/2022 2:24 PM CDT Encounter for gynecological examination with abnormal finding Encounter for screening for human papillomavirus (HPV) PATHOLOGY CYTOLOGY RADIOLOGIC TECHNOLOGIST CHIEF Routine 07/05/2022 2:24 PM CDT Encounter for gynecological examination with abnormal finding HM COLONOSCOPY Routine 01/09/2020 AMB REFERRAL TO PODIATRY Routine 08/13/2019 POCT STOOL, OCCULT BLOOD, DIAGNOSTIC Routine 09/07/2018 1:20 PM CDT Generalized abdominal pain from Last 3 Months or Most Recently Relevant to Health Maintenance Results * PAIN CONSULT (09/19/2024 12:00 AM CDT) Only the most recent of2 resultswithin the time period is included. 09/19/2024 Justen Gale MD GENERIC SCAN ORDERS CONSULT F inal Result Performing Organization Address [facility] Co de Phone Number SCAN * CT - HEAD/NECK (08/13/2024 12:00 AM CDT) 08/13/[address] ORDERABLES Final Result Performing Organization Address [facility] de Phone Number SCAN * (ABNORMAL) ERYTHROCYTE SEDIMENTATION RATE (ESR) (08/07/2024 8:59 AM CDT) Only the most recent of2 resultswithin the time period is included. ESR (SED RATE, ERYTHROCYTE SEDIMENTATION RATE) 52(H) <30 mm/h 08/07/2024 12:34 PM CDT [facility] Comment: Patients presenting with increased level of fibrinogen, gamma globulins, or abnormally shaped RBCs could affect the results for the erythrocyte sedimentation rate (ESR). Results should be clinically correlated. Blood Venipuncture / Unknown 08/07/2024 8:59 AM CDT 08/07/2024 8:59 AM CDT Angelito Alegria APRN, [employer] HEMATOLOGY ORDER CHAPARRO Final Result Performing Organization Address [facility] de Phone Number [facility] [address] [place] [address] * CREATINE KINASE (CK) TOTAL (08/07/2024 8:59 AM CDT) Only the most recent of2 resultswithin the time period is included. CK (CPK) 151 29 - 168 U/L 08/07/2024 1:08 PM CDT [facility] Blood Venipuncture / Unknown 08/07/2024 8:59 AM CDT 08/07/2024 8:59 AM CDT Angelito Alegria APRN, CNP HEMATOLOGY ORDER CHAPARRO Final Result Performing Organization Address City/[facility]/ZIP Co de Phone Number [facility] [address] [place] [address] * (ABNORMAL) C-REACTIVE PROTEIN (CRP) QUANT (08/07/2024 8:59 AM CDT) Only the most recent of2 resultswithin the time period is included. C-REACTIVE PROTEIN 1.21(H) <0.50 mg/dL 08/07/2024 12:54 PM CDT [facility] Blood Venipuncture / Unknown 08/07/2024 8:59 AM CDT 08/07/2024 8:59 AM CDT Angelito Alegria APRN, CNP CHEMISTRY ORDERA BLES Final Result Performing Organization Address City/[facility] Co de Phone Number [facility] [address] [place] [address] * (ABNORMAL) POCT GLUCOSE (08/07/2024 8:31 AM CDT) GLUCOSE 186(A) 70 - 99 mg/dL 08/07/2024 8:31 AM CDT Angelito Alegria APRN, CNP POINT OF CARE TE STING (MANUAL) Final Result * XR - CHEST (08/07/2024 12:00 AM CDT) Only the most recent of2 resultswithin the time period is included. 08/07/2024 us Provider Scan IMG DIAGNOSTIC ORDERABLES Final Result Performing Organization Address City/[facility] Co de Phone Number SCAN * CTA GENERIC (08/07/2024 12:00 AM CDT) 08/07/2024 us Provider Scan IMG CT ORDERABLES Final Result Performing Organization Address [facility] Co de Phone Number SCAN * XR HIP 2 VIEWS UNILATERAL [...] signed by Sen DENSON: JANIYA Report ID: [id number] Reading Location: [id number] Procedure Note Dillon Sy MD - 08/03/2024 [...] signed by Sen DENSON: JANIYA Report ID: [id number] Reading Location: [id number] IMPRESSION: Negative right hip. Sergio Rivera MD [...] Patrick Zhou M.D. KH: KATH Report ID: [id number] Reading Location: [id number] Procedure Note Patrick Zhou MD - 08/03/2024 [...] signed by Patrick STOCKTON: KATH Report ID: [id number] Reading Location: [place] [address] IMPRESSION: Mild bilateral infiltrates are suspected superimposed on chronic lung changes. Sergio Rivera MD IMG DIAGNOSTIC ORDERABLES Final Result * CBC with Auto Differential (08/02/2024 11:21 PM CDT) Only the most recent of2 resultswithin the time period is included. WBC 9.26 4.00 - 12.00 10(3)/mcL 08/03/2024 12:08 AM CDT [facility] RBC 4.62 3.80 - 5.30 10(6)/mcL 08/03/2024 12:08 AM CDT [facility] HEMOGLOBIN (HGB) 13.5 12.0 - 15.8 g/dL 08/03/2024 12:08 AM CDT [facility] HEMATOCRIT (HCT) 42.9 36.0 - 47.0 % 08/03/2024 12:08 AM CDT [facility] MCV 92.9 82.0 - 96.0 fL 08/03/2024 12:08 AM CDT [facility] MCH 29.2 26.0 - 34.0 pg 08/03/2024 12:08 AM CDT [facility] MCHC 31.5 31.0 - 36.0 g/dL 08/03/2024 12:08 AM CDT [facility] PLATELET COUNT 272 140 - 440 10(3)/mcL 08/03/2024 12:08 AM CDT [facility] RDW 12.8 11.8 - 15.5 % 08/03/2024 12:08 AM CDT [facility] MPV 10.2 9.7 - 12.4 fL 08/03/2024 12:08 AM CDT [facility] NEUTROPHILS 62.5 47.0 - 73.0 % 08/03/2024 12:08 AM CDT [facility] LYMPHOCYTES 27.1 18.0 - 42.0 % 08/03/2024 12:08 AM CDT [facility] MONOCYTES 7.1 4.0 - 12.0 % 08/03/2024 12:08 AM CDT [facility] EOSINOPHILS 3.0 0.0 - 5.0 % 08/03/2024 12:08 AM CDT [facility] BASOPHILS 0.3 0.0 - 1.0 % 08/03/2024 12:08 AM CDT [facility] ABSOLUTE NEUTROPHILS 5.78 1.60 - 7.70 10(3)/mcL 08/03/2024 12:08 AM CDT [facility] ABSOLUTE LYMPHOCYTES 2.51 1.30 - 3.20 10(3)/[facility] 08/03/2024 12:08 AM CDT [facility] ABSOLUTE MONOCYTES 0.66 0.20 - 1.00 10(3)/[facility] 08/03/2024 12:08 AM CDT [facility] ABSOLUTE EOSINOPHIL 0.28 0.00 - 0.40 10(3)/[facility] 08/03/2024 12:08 AM CDT [facility] ABSOLUTE BASOPHILS 0.03 0.00 - 0.10 10(3)/[facility] 08/03/2024 12:[address] [facility] NRBC PER 100 WBC 0 08/04/19 25 12:[address] [facility] Blood Venipuncture / Unknown 08/02/2024 11:21 PM CDT 08/03/2024 12:05 AM CDT us Sergio Rivera MD HEMATOLOGY ORDERABLES Final Resu lt [facility] [address] [place] [address] * (ABNORMAL) CMP (Comprehensive Metabolic Panel) (08/02/2024 11:21 PM CDT) Only the most recent of2 resultswithin the time period is included. SODIUM 138 136 - 145 mmol/L 08/03/2024 12:29 AM [facility] POTASSIUM 4.4 3.5 - 5.1 mmol/L 08/03/2024 12:29 AM [facility] CHLORIDE 104 98 - 107 mmol/L 08/03/2024 12:29 AM [facility] CO2, VENOUS 26 22 - 30 mmol/L 08/03/2024 12:29 AM [facility] ANION GAP 12.4 <18.0 mmol/L 08/03/2024 12:29 AM [facility] GLUCOSE 353(H) 70 - 99 mg/dL 08/03/2024 12:29 AM [facility] BUN 18 10 - 20 mg/dL 08/03/2024 12:29 AM [facility] CREATININE, BLOOD 0.80 0.60 - 1.00 mg/dL 08/03/2024 12:29 AM [facility] BUN/CREATININE RATIO 23(H) 12 - 20 ratio 08/03/2024 12:29 AM [facility] TOTAL PROTEIN 8.4(H) 6.0 - 8.0 g/dL 08/03/2024 12:29 AM [facility] ALBUMIN 3.8 3.5 - 5.0 g/dL 08/03/2024 12:29 AM [facility] A/G RATIO 0.8(L) 1.0 - 2.2 08/03/2024 12:29 AM [facility] CALCIUM 10.0 8.7 - 10.5 mg/dL 08/03/2024 12:29 AM [facility] T BILI 0.4 0.2 - 1.2 mg/dL 08/03/2024 12:29 AM [facility] SGOT (AST) 23 <43 U/L 08/03/2024 12:[address] [facility] SGPT (ALT) 22 <56 U/L 08/03/2024 12:29 AM CDT [facility] ALKALINE PHOSPHATASE 67 40 - 150 U/L 08/03/2024 12:29 AM CDT [facility] GFR, ESTIMATED >60 >=60 08/03/2024 12:29 AM CDT [facility] Comment: Creatinine Clearance is the preferred criteria for selecting drug dose adjustments in renally impaired patients. The GFR is provided as additional pertinent clinical information. GFR is reported in mL/min/1.73 sq m. Calculation based on the Chronic Kidney Disease Epidemiology Collaboration (CKD- EPI) equation refit without adjustment for race. GFR, EST. >60 >=60 025 12:29 AM CDT [facility] GFR, EST. NONAFRICAN >60 >=60 08/03/2024 12:29 AM CDT [facility] Blood Venipuncture / Unknown 08/02/2024 11:21 PM CDT 08/03/2024 12:05 AM CDT Sergio Rivera MD CHEMISTRY ORDERABLES Final Resul t Performing Organization Address City/State/[facility] Co de Phone Number [facility] [address] [place] [address] * TROPONIN I, HIGH SENSITIVITY (HSTRP) (08/01/2024 2:48 PM CDT) TROPONIN I, HIGH SENSITIVITY- [place] 4 <=14 ng/L 08/01/2024 3:45 PM CDT [facility] Comment: High-sensitivity troponin I results are reported in ng/L making the result appear to be 1,000 times higher than the contemporary troponin I value which is reported in ng/ml. Results from [place]. Blood Venipuncture / Unknown 08/01/2024 2:48 PM CDT 08/01/2024 3:08 PM CDT Jack Leiva MD CHEMISTRY ORDERABLES Deann l Result [facility] [address] [place] [address] * Gold Top Tube (08/01/2024 2:48 PM CDT) Blood No Phlebotomy Charged / Unknown 08/01/2024 2:48 PM CDT 08/01/2024 3:12 PM CDT us Jack Leiva MD CHEMISTRY ORDERABLES Deann l Result Performing Organization Address City/[facility]/ZIP Co de Phone Number [facility] [address] [place] [address] * Blue Top Tube (08/01/2024 2:48 PM CDT) Blood No Phlebotomy Charged / Unknown 08/01/2024 2:48 PM CDT 08/01/2024 3:12 PM CDT Jack Leiva MD HEMATOLOGY ORDERABLES Fin al Result Performing Organization Address [facility] Co de Phone Number [facility] [address] [place] [address] * Magnesium (08/01/2024 2:48 PM CDT) [facility] MAGNESIUM 1.6 1.6 - 2.6 mg/dL 08/01/2024 3:[address] [facility] Blood Venipuncture / Unknown 08/01/2024 2:48 PM CDT 08/01/2024 3:08 PM CDT Jack Leiva MD CHEMISTRY ORDERABLES Deann l Result Performing Organization Address City/[facility]/ZIP Co de Phone Number [facility] [address] [place] [address] * B-Type Natriuretic Peptide (BNP) (08/01/2024 2:48 PM CDT) B TYPE NATRIURETIC PEPTIDE 23 <100 pg/mL 08/01/2024 3:37 PM CDT [facility] Blood Venipuncture / Unknown 08/01/2024 2:48 PM CDT 08/01/2024 3:08 PM CDT us Jakc Leiva MD CHEMISTRY ORDERABLES Deann l Result Performing Organization Address City/[facility] Co de Phone Number [facility] [address] [place] [address] * EKG 12 LEAD (08/01/2024 2:41 PM CDT) Ventricular Rate 75 BPM EXTERNAL EKG Atrial Rate 75 BPM EXTERNAL EKG P-R Interval 134 ms EXTERNAL EKG QRS Duration 82 ms EXTERNAL EKG Q-T Duration 380 ms EXTERNAL EKG QTC CALCULATION 424 ms EXTERNAL EKG P [place] -77 degrees EXTERNAL EKG R [place] 28 degrees EXTERNAL EKG T [place] 53 degrees EXTERNAL EKG 08/01/2024 2:41 PM CDT Impressions EXTERNAL EKG - 08/04/2024 12:00 PM CDT Atrial-sensed ventricular-paced rhythm Abnormal ECG No previous ECGs available Confirmed by Maryann Clay ([id number]) on 08/04/2024 11:59:59 AM Narrative Procedure Note Maryann Clay MD - 08/04/2024 IMPRESSION: Atrial-sensed ventricular-paced rhythm Abnormal ECG No previous ECGs available Confirmed by Maryann Clay ([id number]) on 08/04/2024 11:59:59 AM us Jack Leiva MD IMG ECG ORDERABLES Final Result Performing Organization Address [facility] Co de Phone Number EXTERNAL EKG * [...] Romelia Bowen D.O. PS: PS Report ID: [id number] Reading Location: [id number] Procedure Note Romelia Bowen DO - 08/01/2024 [...] Romelia Bowen D.O. PS: PS Report ID: [id number] Reading Location: [id number] IMPRESSION: Patchy left basilar airspace opacities, which may be related to subsegmental atelectasis/scarring versus developing airspace disease. Jack Leiva MD [facility] DIAGNOSTIC ORDERABLES Final Result * RSV,SARS-COV-2,INFLUENZA A&B BY PCR (08/01/2024 2:28 PM CDT) FLU A Negative Negative, Error 08/01/2024 3:20 PM CDT [facility] FLU B Negative Negative 08/01/2024 3:20 PM CDT [facility] RESP SYNC VIRUS Negative Negative 3:20 PM CDT [facility] SARSCOV2 NOT DETECTED (Reference Range for this test is Not Detected) 08/01/2024 3:20 PM CDT [facility] Comment:This test was perfor med by a Reverse Elevated Motorman PCR Method. Swab NASOPHARYNGEAL STRUCTURE / Unknown Non-Phlebotomy Collection / Unknown 08/01/2024 2:28 PM CDT 08/01/2024 2:33 PM CDT Jack Leiva MD MICROBIOLOGY - GENERAL OR DERABLES Final Result Performing Organization Address City/[facility] Co de Phone Number [facility] [address] [place] [address] * EKG SCAN (08/01/2024 12:00 AM CDT) 08/01/2024 us Provider Scan IMG ECG ORDERABLES Final Result Performing Organization Address City/[facility] Co de Phone Number RESULTING AGENCY * CT - CHEST (07/22/2024 12:00 AM CDT) 07/22/2024 us Provider Scan IMG CT ORDERABLES Final Result Performing Organization Address [facility] Co de Phone Number SCAN * XR - LOWER EXTREMITY (07/10/2024 12:00 AM CDT) 07/10/2024 us Provider Scan IMG DIAGNOSTIC ORDERABLES Final Result SCAN * HEMOGLOBIN, A1C (10/02/2023 12:00 AM CDT) HGB-A1C 7.8 SCAN 10/02/2023 us Provider Scan CHEMISTRY ORDERABLES Final Resul t SCAN * PATHOLOGY CYTOLOGY RADIOLOGIC TECHNOLOGIST CHIEF (07/05/2022 2:24 PM CDT) SPECIMEN ADEQUACY A scant cellular component is noted. Scant cellularity is likely due to presence of lubricant. 07/08/2022 8:[address] [facility] DESCRIPTIVE DIAGNOSIS NEGATIVE FOR INTRAEPITHELIAL LESIONS OR MALIGNANCY. 07/08/2022 8:[address] [facility] at 0838 CDT OTHER FINDINGS Atrophic hormonal pattern. 07/08/2022 8:[address] [facility] Automated Examination This sample was not evaluated by the automated imaging and review system ([employer] System, [employer], [place], [place] due to technical and / or biologic factor(s). The case was screened, reviewed, and finalized by a vacuum kettle cook and / or pathologist. 07/08/2022 8:[address] [facility] Disclaimer The PAP smear is a [...] clinically indicated. 07/08/2022 8:[address] [facility] Other CERVIX UTERI STRUCTURE / Unknown Non-Phlebotomy Collection / Unknown 07/05/2022 2:24 PM CDT 07/05/2022 2:24 PM CDT us Pili Steinnora WYMAN CNP PATHOLOGY/CYTOLOGY O RDERABLES Final Result [facility] [address] [place] [address], * HUMAN PAPILLOMA VIRUS (HPV) (07/05/2022 2:24 PM CDT) HPV OTHER HIGH RISK TYPES, PCR NEGATIVE NEGATIVE 07/06/2022 2:[address] [facility] Comment: The following Other High Risk [...] NEGATIVE NEGATIVE 07/06/2022 2:[address] [facility] Comment: A negative high-risk HPV result [...] NEGATIVE NEGATIVE 07/06/2022 2:[address] [facility] Comment: A negative high-risk HPV result [...] OR DIAGNOSTIC SCREENING 07/06/2022 2:[address] [facility] Other Non-Phlebotomy Collection / Unknown 07/05/2022 2:24 PM CDT 07/05/2022 2:[address] [facility] - 07/06/2022 2:37 PM CDT Performed by Real-Time Polymerase Chain Reaction (PCR) on the Ronnie Vinay 4800. This assay has been validated for use with post-aliquot samples from the [employer]5000 processor. Pili Elkins APRN, CNP LAB SEND OUTS Deann l Result [facility] [address] [place] [address], [facility] [address] [place] [address] * COLONOSCOPY (01/09/2020) Genaro Jensen DO PROCEDURE/MINOR SURGICAL ORDERA BLES Final Result * AMB REFERRAL TO PODIATRY (08/13/2019) Alvarez Mensah MD OUTPATIENT REFERRALS Final Res ult * POCT STOOL, OCCULT BLOOD, DIAGNOSTIC (09/07/2018 1:20 PM CDT) OCCULT BLOOD, STOOL Negative Negative, Other POC HEMOCULT CONTROL [employer] Systems Lead Pass 09/07/2018 1:20 PM CDT Pili Elkins APRN, CNP POINT OF CARE TESTIN G (MANUAL) Final Result from Last 3 Months or Most Recently Relevant to Health Maintenance Insurance MEDICARE C [facility] Care Teams Car Dumper Operator Helper Relationship Specialty Start Date End Date Justen Gale MD #[address] [facility] [address] [place] [address] PCP - General Family Medicine 10/17/17 David Roberts APRN, [employer] [address] [place] [address] Nurse Practitioner Advanced Practice Nurse 01/31/22 Annel Rod MD #[address] [facility] [address] [place] [id number] Consulting Physician Endocrinology 07/01/22
--- NOTE | 2024-09-27 00:01 | ECG_ITS ---
Test Date: 2024-09-27 00:43:12 Measurements Intervals [place] Rate: 85 P: 30 MI: 129 QRS: 6 QRSD: 90 T: 44 QT: 359 QTc: 428 Interpretive Statements SINUS RHYTHM EARLY PRECORDIAL R/S TRANSITION BORDERLINE ECG Compared to ECG 08/07/2024 14:59:17 No significant changes Electronically Signed On 09-27-2024 06:18:42 CDT by Jonatan Parra D.O.
[2024-09-27 01:09] LABS: Basophils Absolute Auto 0.1 K/mm3 (0.0-0.1); Basophils Percent Auto 0.3 % (0.2-1.2); Eosinophils Absolute Auto 0.2 K/mm3 (0-0.3); Eosinophils Percent Auto 1.1 % (0-4.4); Hematocrit 40.9 % (37.0-47.0); Hemoglobin 12.8 g/dL (12.0-15.0); Immature Granulocyte Absolute 0.07 K/mm3 (0.00-0.031); Immature Granulocyte Percent A 0.5 % (0-0.5); Lymphocytes Absolute Auto 3.46 K/mm3 (0.9-3.2); Lymphocytes Percent Auto 23.2 % (18.3-44.2); Mean Corpuscular HGB Conc 31.3 g/dl (32-36); Mean Corpuscular Hemoglobin 29.3 pg (26-34); Mean Corpuscular Volume 93.6 fl (80-100); Mean Platelet Volume 9.7 fl (7.4-10.4); Monocytes Absolute Auto 1.2 K/mm3 (0.1-0.6); Neutrophils Percent Auto 66.9 % (45.5-73.1); Platelet Count Result 295 k/mm3 (150-375); Red Blood Count 4.37 M/mm3 (4.2-5.4); Red Cell Distribution Width 13.8 % (11.5-14.5); White Blood Count 14.9 K/mm3 (4.5-10.0)
[2024-09-27] MEDS: LACTATED RINGERS 1,000 ML 999 ML IV CONT (01:42)
--- NOTE | 2024-09-27 02:01 | ED.WEAKNESS ---
HPI - Weakness General Chief complaint: Weakness Stated complaint: Weakness, throat pain, dehydration Time Seen by Provider: 09/27/24 01:27 History of Present Illness HPI Narrative: 69-year-old female with a history of insulin-dependent diabetes, recent diagnosis of polymyositis, previous strep throat and recurrent tonsillitis. Patient presents to the emergency department with concerns of a sore throat. She states that she has an ENT appointment this morning with her specialist for initial encounter but states that she was having sore throat and she wanted to get evaluated in the emergency department. Denies any shortness a breath, nausea, vomiting, chest pain, abdominal pain, back pain, fever, chills. She is not any acute distress, phonating appropriately, answering all questions and awake alert oriented. She is complaining of some pain in the back her throat but denies any difficulty tolerating oral secretions or oral intake. No trauma or injury. No fever or chills. Related Data Home Medications ?Medication ?Instructions ?Recorded ?Confirmed ?Last Taken ?Type exemestane 25 mg tablet 25 mg PO 01/06/20 06/20/24 12/04/23 22:00 History insulin glargine 100 unit/mL (3 32 unit subcut QAM 01/06/20 06/20/24 12/04/23 11:00 History mL) subcutaneous pen (Lantus Solostar U-100 Insulin) ropinirole 5 mg tablet 5 mg PO 01/06/20 06/20/24 12/04/23 22:00 History insulin lispro 100 unit/mL 28 unit subcut TID 03/19/22 06/20/24 Unknown History subcutaneous pen (Humalog KwikPen (U-100) Insulin) oxybutynin chloride 15 mg 15 mg PO DAILY 11/06/22 06/20/24 12/04/23 11:00 History tablet,extended release 24 hr gabapentin 300 mg capsule 300 mg PO TID 06/25/23 06/20/24 12/04/23 22:00 History Allergies Allergy/AdvReac Type Severity Reaction Status Date / Time ceftriaxone Allergy Severe SOB Verified 09/26/24 23:41 cephalexin Allergy Severe Difficulty Verified 09/26/24 23:41 Breathing Cephalosporins Allergy Severe Difficulty Verified 09/26/24 23:41 Breathing lorazepam Allergy Severe Swelling Verified 09/26/24 23:41 trazodone Allergy Severe Swelling Verified 09/26/24 23:41 of Lip/Tongue/Throat metoclopramide Allergy Intermediate Other Verified 09/26/24 23:41 chlorhexidine Allergy Mild BLISTERING Verified 09/26/24 23:41 levofloxacin Allergy Mild Hives / Verified 09/26/24 23:41 Red Face ketorolac Allergy Itching Verified 09/26/24 23:41 latex Allergy Rash Verified 09/26/24 23:41 meropenem Allergy Rash Verified 09/26/24 23:41 nitrofurantoin Allergy Itching Verified 09/26/24 23:41 sulfamethoxazole (From Allergy Itching Verified 09/26/24 23:41 Sulfamethoxazole-Trimethoprim) trimethoprim (From Allergy Itching Verified 09/26/24 23:41 Sulfamethoxazole-Trimethoprim) oxycodone AdvReac Mild Vomiting Verified 09/26/24 23:41 amlodipine AdvReac Swelling Verified 09/26/24 23:41 lisinopril AdvReac Swelling Verified 09/26/24 23:41 pregabalin AdvReac Swelling Verified 09/26/24 23:41 reslizumab AdvReac Unknown Verified 09/26/24 23:41 Review of Systems Review of Systems: As [facility] Past Medical History Medical History Chronic anticoagulation Overactive bladder Type 2 diabetes mellitus Deep venous thrombosis Irritable bowel syndrome Restless leg syndrome Obstructive sleep apnea on CPAP Congestive heart failure Chronic back pain COVID-19 Collagenous colitis Morbid obesity Breast cancer Depression Anxiety Peripheral neuropathy Kidney stone Pulmonary embolism positive for coagulation workup Multiple thyroid nodules Surgical History Surgical History History of umbilical hernia repair History of colonoscopy Status post insertion of spinal cord stimulator History of cystoscopy History of ureter stent History of cholecystectomy History of bilateral mastectomy History of esophagogastroduodenoscopy (EGD) History of right oophorectomy History of total right knee replacement History of cardiac catheterization Reportedly negative for coronary artery disease. Family History Family History Mother Diabetes mellitus Acute myocardial infarction Cerebrovascular accident Hypertension Congestive heart failure Father Prostate carcinoma Sibling Breast cancer Acute myocardial infarction Chronic obstructive pulmonary disease Social History Social History Social History: Surrogate medical decision maker: Jimmie Marques, spouse. Code status: Full code. Smoking packs per day: 0 Smoking cigarettes per day: 0.0 Years smoked: 2 Smoking pack-years: 0.00 Smoking status: Former smoker Second hand tobacco smoke exposure: Yes Alcohol intake: never Substance use: never Substance use type: does not use Do You Feel Safe in your Home?: Yes Lack of Transportation: No Lack of Food: Never True Current Housing: I Have Housing Concerned About Future Housing: No Difficulty Paying Gas/Electric Bills: No Difficulty Paying for Meds: No Currently Unemployed: No Education: Decline to Answer Difficulty w/ Childcare or Family Care: No Living arrangements: with family Additional occupation/education comments: Disabled. Spiritual care concerns: No Exam Narrative: GENERAL: Morbidly obese but not any acute distress, answering all questions appropriately, awake and alert oriented. HEAD: [Normocephalic, atraumatic.] EYES: [PERRLA and EOMI.] ENT: Nares clear, no rhinorrhea or epistaxis. Mucous membranes slightly dry. No uvular edema, no base of tongue swelling. Some aphthous ulcers appearing on the right side of the tongue laterally. No base of tongue swelling or brawny neck edema. No posterior oropharyngeal erythema, exudates or purulent drainage. No definitive abscess formation or asymmetry. NECK: Supple. CHEST: [Clear to auscultation. No respiratory distress.] HEART: [Regular rate and rhythm]. No murmur heard. [Normal peripheral pulses.] ABDOMEN: [Soft, nondistended], [nontender], [No rigidity or guarding] EXTREMITIES: Normal range of motion. [No edema.] SKIN: Warm, dry, no rash. NEURO: [No focal deficits]. Alert and oriented [x3.] PSYCH: [Normal mood and affect.] Course Vital Signs Vital signs: Vital Signs Temperature 36.3 C L 09/26/24 23:42 Pulse Rate 94 09/26/24 23:42 Respiratory Rate 16 09/26/24 23:42 Blood Pressure 157/85 H 09/26/24 23:42 Pulse Oximetry 96 09/26/24 23:42 Oxygen Delivery Room Air 09/26/24 23:42 Temperature 36.3 C L 09/26/24 23:42 Pulse Rate 80 09/27/24 04:39 Respiratory Rate 17 09/27/24 04:39 Blood Pressure 148/89 H 09/27/24 04:39 Pulse Oximetry 94 09/27/24 04:39 Oxygen Delivery Room Air 09/26/24 23:42 MDM - Weakness MDM Narrative Medical decision making narrative: 69-year-old female history of insulin-dependent diabetes, recent diagnosis of polymyositis, recurrent tonsillitis. She presents the emergency room with sore throat. She has an ENT appointment to establish care and get recommendations and treatment options this morning. She states that she did not want to wait and came to the ER. Denies any fever, chills, shortness a breath or chest pain. Her examination is largely unremarkable. She has an unremarkable appearing posterior oropharynx without any erythema, exudates or asymmetry. No uvular edema. No base of tongue swelling, no signs of trismus or inability to tolerate oral secretions. Slightly dry mucous membranes. Patient has been on multiple courses of antibiotics for this as well as multiple courses of steroids according to her for treatment of polymyositis and tonsillitis/pharyngitis. Do not suspect peritonsillar retropharyngeal abscess based on examination and reassuring vital signs. Will obtain blood work and give her IV ibuprofen for analgesia. No present indications for advanced CT imaging. She will be given fluid hydration and re-evaluated. Likely plan will be for discharge home with ENT follow-up this morning with return precautions. Patient had improvement in pain control after reassessment. She is ambulatory here in the emergency depart without difficulty. Workup shows white blood cell count 14.9 likely secondary to the recent steroids and possible tonsillitis. Normal hemoglobin. Normal platelet count. Chemistry panel shows no acute abnormalities in the electrolytes. Normal renal function. Glucose of 222 which is better than her previous levels. Normal LFTs. Chest x-ray shows no acute abnormalities. Patient is safe for discharge with ENT follow-up this morning. Patient given return precautions and discharge instructions. Medical Records Attestation: I reviewed the patient's medical records. Lab Data Attestation: I reviewed the patient's lab results. 09/27/24 00:40 09/27/24 02:47 Labs: Lab Results 09/27/24 09/27/24 Range/Units 00:40 02:47 WBC 14.9 H (4.5-10.0) K/mm3 RBC 4.37 (4.2-5.4) M/mm3 Hgb 12.8 (12.0-15.0) g/dL Hct 40.9 (37.0-47.0) % MCV 93.6 (80-100) fl MCH 29.3 (26-34) pg MCHC 31.3 L (32-36) g/dl RDW 13.8 (11.5-14.5) % Plt Count 295 (150-375) k/mm3 MPV 9.7 (7.4-10.4) fl Immature Gran % (Auto) 0.5 (0-0.5) % Neut % (Auto) 66.9 (45.5-73.1) % Lymph % (Auto) 23.2 (18.3-44.2) % Marshall % (Auto) 8.0 (2.6-8.5) % Eos % (Auto) 1.1 (0-4.4) % Baso % (Auto) 0.3 (0.2-1.2) % Lymph # (Auto) 3.46 H (0.9-3.2) K/mm3 Marshall # (Auto) 1.2 H (0.1-0.6) K/mm3 Eos # (Auto) 0.2 (0-0.3) K/mm3 Baso # (Auto) 0.1 (0.0-0.1) K/mm3 Abs Immat Gran (auto) 0.07 H (0.00-0.031) K/mm3 Absolute Neuts (auto) 10.0 H (1.3-6.7) K/mm3 Absolute Nucleated RBC 0.000 (0.0-0.012) K/mm3 Nucleated RBC % 0.0 (0.0-0.2) % Sodium 138 (137-145) mmol/L Potassium 3.7 (3.4-5.0) mmol/L Chloride 104 (98-107) mmol/L Carbon Dioxide 27 (22-30) mmol/L Anion Gap 7 (4-12) mmol/L BUN 26 H (7-17) mg/dL Creatinine 0.65 L (0.7-1.0) mg/dL Estim Creat Clear Calc 85 ml/min Estimated GFR > 60 (59 - ) Glucose 222 H (65-110) mg/dL Calcium 9.4 (8.4-10.2) mg/dL Total Bilirubin 0.5 (0.2-1.3) mg/dL AST 29 (14-36) U/L ALT 28 (6-35) U/L Alkaline Phosphatase 65 (38-126) U/L Total Protein 6.7 (6.3-8.2) g/dL Albumin 3.4 L (3.5-5.1) g/dL Imaging Data Attestation: I personally reviewed and interpreted this imaging study as follows: My impression: No acute abnormalities on chest x-ray Discharge Plan Discharge Clinical Impression: Acute recurrent tonsillitis, unspecified, Type II diabetes mellitus Patient Disposition: Home Condition: Stable Instructions: Antibiotic Form, Tonsillitis (ED) Additional Instructions: Follow-up with your ENT provider this morning during your scheduled appointment. Return with any emergent concerns. Take Tylenol and ibuprofen for pain control and fever control. If you notice that your not able swallow, drooling at the mouth, having a muffled voice, worsening pain or swelling or any other concerns return to the ER. Patient Language: Khmer Prescriptions: No Action gabapentin 300 mg capsule 300 mg PO TID cyclobenzaprine 10 mg tablet 10 mg PO TID PRN (Reason: muscle spasm) Qty: 20 0RF Rx Instructions: no driving or alcohol while taking this medication clindamycin HCl [Cleocin HCl] 300 mg capsule 300 mg PO Q8H 7 Days Qty: 21 0RF methylprednisolone [Medrol (Nam)] 4 mg tablets,dose pack See Rx Instructions .ROUTE .COMPLEX Qty: 21 0RF Rx Instructions: orally per package directions exemestane 25 mg tablet 25 mg PO HS ropinirole 5 mg tablet 5 mg PO HS insulin glargine [Lantus Solostar U-100 Insulin] 100 unit/mL (3 mL) insulin pen 32 unit SUBCUT QAM insulin lispro [Humalog KwikPen Insulin] 100 unit/mL insulin pen 28 unit SUBCUT TID albuterol sulfate 90 mcg/actuation HFA aerosol inhaler 1 inh inhalation QID PRN (Reason: shortness of breath or wheezing) Qty: 6.7 0RF oxybutynin chloride 15 mg tablet extended release 24hr 15 mg PO DAILY acetaminophen 325 mg Tablet 650 mg PO Q6H PRN (Reason: Pain 1-5 or Fever) Qty: 30 0RF Xarelto 20 mg tablet 20 mg PO 1700 Qty: 30 0RF hydrocodone-acetaminophen 10-325 mg tablet 1 tablet PO Q6H PRN (Reason: pain (scale score 7-10)) Qty: 10 0RF ondansetron 4 mg tablet,disintegrating 4 mg PO Q8H PRN (Reason: nausea and vomiting) Qty: 10 0RF acetaminophen 500 mg capsule 500 mg PO Q6H PRN (Reason: pain) Qty: 14 0RF Follow-up/Referrals: Shahla,Justen Spicer MD [Primary Care Provider] - Time of Disposition: 04:09
--- OUTSIDE RECORDS SUMMARY | 2024-09-27 02:19 | XMS_ITS ---
Author Organization [facility] Address [address] [place] [id number] Care Team Providers Care Catheter Builder Name Role Phone Liu Jerez MD Unavailable Albert Corbin MD Unavailable Justen Gale MD Primary Care Provider Khris Arthur MD Unavailable [phone] Ko Melendez MD Unavailable John Paul Moyer MD Unavailable Annel Rod MD Unavailable Anali MARSHALL MD, Carlos M. Unavailable Active Problems Problem Noted Date Diagnosed Date Urinary tract infection 05/22/2024 Assessment & Plan (05/26/2024 10:08 AM ANALYTICAL CHEMIST): Presenting with urinary symptoms of right flank [...] 05/22/2024 Assessment & Plan (05/25/2024 7:52 AM ANALYTICAL CHEMIST): Hx of breast cancer c/b DVT/bilateral Pes [...] 05/22/2024 Assessment & Plan (05/22/2024 1:14 PM ANALYTICAL CHEMIST): -long-standing chronic back pain -CT L spine [...] 09/12/2021 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) 2021 care home (current) use 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 inhibitors [...] long-term current use of insulin ([facility]) 10/23/2017 Assessment [...] 10/13/2017 Assessment & Plan (05/22/2024 12:29 PM ANALYTICAL CHEMIST): -Hx stage II, ER positive, HER2 negative [...] 08/01/2017 Assessment & Plan (05/22/2024 12:33 PM ANALYTICAL CHEMIST): -Hx LUL -Hospital provided CPAP ordered History of DVT (deep vein thrombosis) 08/01/2017 History of pulmonary embolism 08/01/2017 Generalized weakness 07/27/2017 Dyspnea 07/27/2017 Unintentional weight loss 07/27/2017 Acute cystitis without hematuria 07/27/2017 Nausea and vomiting 07/26/2017 Overview (07/28/2017): Added automatically from request for surgery [id number] Pulmonary embolism 08/09/2016 Assessment & Plan (10/23/2017 2:05 AM CDT): On Rivaroxaban Lymphedema of left upper extremity 08/09/2016 Assessment & Plan (05/25/2024 7:53 AM ANALYTICAL CHEMIST): S/p L axillary lymph node dissection 2014, [...] syndrome Assessment & Plan (05/22/2024 11:18 AM ANALYTICAL CHEMIST): -continue home Requip 5mg nightly Pain of lower extremity 03/12/2013 Overview (07/29/2016): Leg pain Essential hypertension Assessment & Plan (05/23/2024 10:42 AM ANALYTICAL CHEMIST): -Chart history of HTN but not on meds -BP elevated on admission, likely some pain contributing -Monitor closely once pain under adequate control, discussed following up with PCP for this Chronic anticoagulation Restless leg syndrome 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 Type 2 diabetes mellitus without complication Assessment & Plan (05/24/2024 1:39 PM ANALYTICAL CHEMIST): -Last Ha1c 8.4 in 2023, repeat 8.7 [...] left female breast, unspecified estrogen receptor status (HCC)extermination supervisor (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
--- OUTSIDE RECORDS SUMMARY | 2024-09-27 02:19 | XMS_ITS | Encounter Summary ---
Author Organization [facility] Address [address] [place] [address] Phone Care Team Providers Care Hardware Installer Name Role Phone Justen Gale MD Primary Care Provider David Roberts APRN, NUCLEAR ENGINEER Unavailable Annel Rod MD Unavailable Reason for Visit * Reason Comments Medication Refill Encounter Details Date Type Department Care Team (Late st Contact Info) Description 02/07/2020 Refill [facility] [address] [place] [address] Justen Gale MD #[address] [address] Medication Refill Social History Tobacco Use Types [...] Visit [facility] [place] [address] [place] [address] Annel Rod MD #[address] [address] 11/13/2024 2:00 PM CDT [facility]ment [facility] [address] [place] [address] Angelito Alegria APRN, NUCLEAR ENGINEER #2 [facility] [address] [place] [address] Discharge Disposition: Discharged to home or Selfcare documented as of this encounter Visit Diagnoses Not on filedocumented in this encounter Additional Health Concerns Infection Onset Date Last Indicated Resolved Time COVID - 19 08/01/2024 08/01/2024 08/01/2024 3:20 PM CDT Assessment Noted Time PHQ-9 Depression Total Score: 0 09/08/19 1:00 PM CDT documented as of this encounter Care Teams Hardware Installer Relationship Specialty Start Date End Date Justen Gale MD #[address] [address] PCP - General Family Medicine 10/17/17 David Roberts APRN, NETTA [address] [facility] [place] [address] Nurse Practitioner Advanced Practice Nurse 01/31/22 Annel Rod MD [address] [address] Consulting Physician Endocrinology 07/01/22 documented as of this encounter
--- OUTSIDE RECORDS SUMMARY | 2024-09-27 02:19 | XMS_ITS | Encounter Summary ---
Author Organization [facility] Address [address] [place] [address] Phone Care Team Providers Care Director Of Elementary Education Name Role Phone Justen Gale MD Primary Care Provider David Roberts APRN, FISH FARM LABORER Unavailable Annel Rod MD Unavailable Reason for Visit * Reason Onset Date Comments Sore Throat 06/29/2020 Encounter Details Date Type Department Care Team (Late st Contact Info) Description 06/29/2020 Telephone [facility] [address] [place] [address] Justen Gale MD #[address] [address] Sore Throat Social History Tobacco Use Types [...] COVID-19? No / Unsure 06/29/2020 8:43 AM WIRE ANNEALER documented as of this encounter Miscellaneous Notes * Telephone Encounter - Gail Lucero RN - 06/29/2020 3:53 PM CST Attempted to call mailbox is full. Pt does not need testing ANNEALER * Telephone Encounter - Vince Hermosillo MD - 06/29/2020 3:13 PM CST No covid testing needed. If the er thought that it was warranted then they would have done this. ANNEALER * Telephone Encounter - Marlys Sorensen RN - 06/29/2020 8:36 AM CST Patient calling. Patient is calling to schedule Hospital/ED/Prompt-Care follow up appointment. Hospital/ED/[facility] Site: [facility] ED Records Requested: Yes Reason [...] f/up and yearly PAP appointments? Please advise. ANNEALER documented in this encounter Plan of Treatment Upcoming Encounters Date Type Department Care Team (Late st Contact Info) Description 10/22/2024 11:15 AM CDT Office Visit [facility] - [facility] - [place] [address] [place] [address] Annel Rod MD #2 [facility] [address] [place] [address] 11/13/2024 2:00 PM CDT [facility] [address] [place] [address] Angelito Alegria, EMAIL MARKETING COORDINATOR, FISH FARM LABORER #2 [facility] [address] [place] [address] Discharge Disposition: Discharged to home or Selfcare documented as of this encounter Visit Diagnoses Not on filedocumented in this encounter Additional Health Concerns Infection Onset Date Last Indicated Resolved Time COVID - 19 08/01/2024 08/01/2024 08/01/2024 3:20 PM CDT Assessment Noted Time PHQ-9 Depression Total Score: 0 09/08/19 19 1:00 PM CDT documented as of this encounter Care Teams Director Of Elementary Education Relationship Specialty Start Date End Date Justen Gale MD #2 [facility] [address] [place] [address] PCP - General Family Medicine 10/17/17 David Roberts APRN, FISH FARM LABORER #2 [place] [address] Nurse Practitioner Advanced Practice Nurse 01/31/22 Annel Rod MD #2 [facility] [address] [place] [address] Consulting Physician Endocrinology 07/01/22 documented as of this encounter
--- OUTSIDE RECORDS SUMMARY | 2024-09-27 02:19 | XMS_ITS | Encounter Summary ---
Author Organization [facility] Address [address] [place] [address] Phone Care Team Providers Care Passenger Car Conductor Name Role Phone Justen Gale MD Primary Care Provider [phone] David Roberts APRN, POLICE SERGEANT Unavailable Annel Rod MD Unavailable Reason for Visit * Reason Comments Medication Refill Encounter Details Date Type Department Care Team (Late st Contact Info) Description 03/13/2021 Refill [facility] [address] [place] [address] Justen Gale MD #[address] [address] Medication Refill Social History Tobacco [...] COVID-19? No / Unsure 03/02/2021 5:05 PM ESTHETICIAN AND MANAGER MEDICAL SPA documented as of this encounter Plan of Treatment Upcoming Encounters Date Type Department Care Team (Late st Contact Info) Description 10/22/2024 11:15 AM CDT Office Visit [facility] Endocr[facility] #[address] [place] [address] Annel Rod MD #2 [facility] [address] [place] [address] 11/13/2024 2:00 PM CDT [facility] [address] [place] [address] Angelito Alegria, STOCKROOM CLERK, POLICE SERGEANT #2 [facility] [address] [place] [address] Discharge Disposition: Discharged to home or Selfcare documented as of this encounter Visit Diagnoses Not on filedocumented in this encounter Additional Health Concerns Infection Onset Date Last Indicated Resolved Time COVID - 19 08/01/2024 08/01/2024 08/01/2024 3:20 PM CDT Assessment Noted Time PHQ-9 Depression Total Score: 0 07/21/19 3:00 PM CDT documented as of this encounter Care Teams Passenger Car Conductor Relationship Specialty Start Date End Date Justen Gale MD #[address] [address] PCP - General Family Medicine 10/17/17 David Roberts APRN, POLICE SERGEANT #2 [place] [address] Nurse Practitioner Advanced Practice Nurse 01/31/22 Annel Rod MD #2 [place] [id number] Consulting Physician Endocrinology 07/01/22 documented as of this encounter
--- OUTSIDE RECORDS SUMMARY | 2024-09-27 02:19 | XMS_ITS | Clinical Summary ---
Author Organization [facility] Address [address] [place] [id number] Care Team Providers Care Skidder Name Role Phone Liu Jerez MD Unavailable Albert Corbin MD Unavailable Justen Gale MD Primary Care Provider Khris Arthur MD Unavailable [phone] Ko Melendez MD Unavailable John Paul Moyer MD Unavailable [phone] Annel Rod MD Unavailable Anali MARSHALL MD, [...] 05/22/2024 Assessment & Plan (05/26/2024 10:08 AM WELDER METAL FAB): Presenting with urinary symptoms of right flank [...] 05/22/2024 Assessment & Plan (05/25/2024 7:52 AM WELDER METAL FAB): Hx of breast cancer c/b DVT/bilateral Pes [...] 05/22/2024 Assessment & Plan (05/22/2024 1:14 PM WELDER METAL FAB): -long-standing chronic back pain -CT L spine [...] without long-term current use of insulin ([facility]) 10/23/2017 Assessment & Plan (10/23/2017 [...] 10/13/2017 Assessment & Plan (05/22/2024 12:29 PM WELDER METAL FAB): -Hx stage II, ER positive, HER2 negative [...] 08/01/2017 Assessment & Plan (05/22/2024 12:33 PM WELDER METAL FAB): -Hx LUL -Hospital provided CPAP ordered History of DVT (deep vein thrombosis) 08/01/2017 History of pulmonary embolism 08/01/2017 Generalized weakness 07/27/2017 Dyspnea 07/27/2017 Unintentional weight loss 07/27/2017 Acute cystitis without hematuria 07/27/2017 Nausea and vomiting 07/26/2017 Overview (07/28/2017): Added automatically from request for surgery [id number] Pulmonary embolism 08/09/2016 Assessment & Plan (10/23/2017 2:05 AM CDT): On Rivaroxaban Lymphedema of left upper extremity 08/09/2016 Assessment & Plan (05/25/2024 7:53 AM WELDER MET[employer] FAB): S/p L axillary lymph node dissection 2014, [...] syndrome Assessment & Plan (05/22/2024 11:18 AM WELDER MET[employer] FAB): -continue home Requip 5mg nightly Pain of lower extremity 03/12/2013 Overview (07/29/2016): Leg pain Essential hypertension Assessment & Plan (05/23/2024 10:42 AM WELDER METAL FAB): -Chart history of HTN but not on meds -BP elevated on admission, likely some pain contributing -Monitor closely once pain under adequate control, discussed following up with PCP for this Chronic anticoagulation Restless leg syndrome 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 More than 4 times per year [...] time in the past [address] [facility], were you homeless or living in [...] file Legal Sex Female 12:24 AM WELDER METAL FAB Gender Identity Not on file Sexual Orientation [...] CDT HEMOGLOBIN A1C STAT 05/21/2024 4:20 PM [employer] FAB LIPID PANEL STAT 05/21/2024 4:20 PM [employer] FAB DEXA AXIAL SKELETON BONE DENSITY 1 OR [...] breath since last night. 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 AR: VALERY Report ID: [id number] Reading Location: [id number] Procedure Note Juve Gallegos MD - 07/01/2024 [...] Juve Gallegos M.D. AR: VALERY Report ID: [id number] Reading Location: [id number] us Lila MCKEON IMG CT PROCEDURES Final Resu lt * (ABNORMAL) Troponin T high-sensitivity 2-hour (07/01/2024 3:43 PM CDT) Trop T hs 27(H) <=14 ng/L Comment: Interpretive Data For further hscTnT resources including the diagnostic algorithm and an aid in interpretation, copy and paste this link: https://nrl.testcatalog.org/show/hsTrop Current Interpretive Data last revised 2020. Testing performed by: [address] [address] Trop T hs delta 0 ng/L MARY JANE PHAM Comment:Testing performed by : [address] [address] Trop T hs interp Insignificant MARY JANE PHAM Comment:Testing performed by : [address] [address] Blood 07/01/2024 3:43 PM CDT 07/01/2024 3:52 PM CDT us Ilana Stevens MD LAB BLOOD ORDERABLES F inal Result [facility] [address] [facility] Department [place] [address] * (ABNORMAL) Urinalysis reflex to microscopic and culture Urine (07/01/2024 3:43 PM CDT) Color, ur Yellow Yellow Comment:Testing performed by : [address] [address] Clarity, ur Clear Clear MARY JANE PHAM Comment:Testing performed by : [address] [address] Specific gravity, ur 1.020 1.003 - 1.030 MARY JANE PHAM Comment:Testing performed by : [address], [place]., [address] pH, urine 6.0 MARY JANE Comment: Interpretive Data U rine pH is affected by diet, medications, systemic acid-base disturbances, and renal tubular function. pH may affect urinary stone formation. For example, urine pH below 6.0 may help reduce the tendency for calcium phosphate stones and pH greater than 6.0 may reduce the tendency for uric acid stone formation. Source: [facility] The Box Current Interpretive Data was last revised on 2017 Testing performed by: [facility], [address] [place] [address], [place]., [address] Protein, ur ql Negative Negative MARY JANE Comment:Testing performed by : [address], [place]., [address] Glucose, ur ql 2+(A) Negative MARY JANE Comment:Testing performed by : [address], [place]., [address] Ketones, ur Negative Negative MARY JANE Comment:Testing performed by : [address], [place]., [address] Bilirubin, ur Negative Negative MARY JANE Comment:Testing performed by : [address], [place]., [address] Blood, ur Trace(A) Negative MARY JANE Comment:Testing performed by : [address], [place]., [address] Urobilinogen, ur <2.0 <2.0 mg/dL MARY JANE Comment:Testing performed by : [address], [place]., [address] Nitrite, ur Negative Negative MARY JANE Comment:Testing performed by : [address], [place]., [address] Leukocyte esterase, ur Negative Negative MARY JANE Comment:Testing performed by : [address], [place]., [address] UA reflex comment Reflex to microscopic UA will be performed. MARY JANE Comment:Testing performed by : [address], [place]., [address] Urine 07/01/2024 3:43 PM CDT 07/01/2024 3:52 PM CDT us Ilana Stevens MD LAB MICROBIOLOGY - GEN ERAL ORDERABLES Final Result Performing Organization Address [facility] de Phone Number MARY JANE [facility] [place] [address] * (ABNORMAL) Urinalysis, microscopic only (07/01/2024 3:43 PM CDT) WBC, ur 0-5 0 - 5 /HPF Comment:Testing performed by : [facility], [address] [place] [address]., [address] RBC, ur 3-5(A) 0 - 2 /HPF MARY JANE Comment:Testing performed by : [address] [address] Epithelial cells, squamous, ur 1-5 0 - 5 /HPF MARY JANE Comment:Testing performed by : [address] [address] Mucous, ur Present(A) MARY JANE Comment:Testing performed by : [address] [address] Culture Reflex Comment Reflex conditions for urine culture (WBC >10) not met. MARY JANE Comment:Testing performed by : [address] [address] Urine 07/01/2024 3:43 PM CDT 07/01/2024 3:52 PM CDT Ilana Stevens MD LAB URINE ORDERABLES F inal Result Performing Organization Address [facility] Co de Phone Number MARY JANE [address] [facility] [place] [address] * XR Chest 1 Vw Portable (if [...] Romelia Bowen D.O. PS: PS Report ID: [id number] Reading Location: [id number] Procedure Note Romelia Bowen, DO - 07/01/2024 [...] Romelia Bowen D.O. PS: PS Report ID: [id number] Reading Location: [id number] us Ilana Stevens MD IMG XR PROCEDURES Deann l Result * ECG 12 lead (07/01/2024 2:05 PM CDT) Ventricular Rate EKG/Min 76 BPM [facility] Atrial Rate 76 BPM [facility] KS-Interval (MSEC) 130 ms [facility] QRS-Interval (MSEC) 86 ms [facility] QT-Interval (MSEC) 386 ms [facility] QTc 434 ms [facility] P Warroad 26 degrees [facility] R Warroad 22 degrees [facility] T Warroad 46 degrees [facility] Diagnosis Normal sinus rhythm Normal ECG When compared with ECG of 28-DEC-2023 12:49, No significant change was found Confirmed by DUTCH BURGOS M.D. ([id number]) on 07/01/2024 10:10:22 PM [facility] 07/01/2024 2:05 PM CDT 07/01/2024 10:10 PM CDT us Ilana Stevens MD ECG ORDERABLES Final Result Performing Organization Address City/[facility]/ZIP Co de Phone Number [facility] * (ABNORMAL) Troponin T high-sensitivity series (baseline, 2hr, 4hr, 6hr) (07/01/2024 2:02 PM CDT) Pathologist [facility] Trop T hs 27(H) <=14 ng/L Comment: Interpretive Data For further hscTnT resources including the diagnostic algorithm and an aid in interpretation, copy and paste this link: https://nrl.testcatalog.org/show/hsTrop Current Interpretive Data last revised 2020. Testing performed by: [facility], [address] [place] [address]., [address] Blood 07/01/2024 2:02 PM CDT 07/01/2024 2:12 PM CDT us Ilana Stevens MD LAB BLOOD ORDERABLES F inal Result MARY JANE [address] [facility] Department [place] [address] * Influenza A/B, RSV, and COVID-19 PCR Nasopharyngeal (07/01/2024 2:02 PM CDT) [facility] COVID-19 RNA Negative Negative Comment:Testing performed by : [address] [address] Influenza A RNA Negative Negative [facility] Comment:Testing performed by : [address] [address] Influenza B RNA Negative Negative [facility] Comment:Testing performed by : [address] [address] RSV RNA Negative Negative [facility] Comment: Interpretive data: Testing performed by [facility]. This test is performed using the Linea Xpert Xpress CoV-2/Flu/RSV plus assay. This is [...] Data last revised 2023 Testing performed by: [address] [address] Nasopharyngeal 07/01/2024 2: 02 PM CDT 07/01/2024 2:12 PM CDT Narrative [facility] - 07/01/2024 2:52 PM CDT Is the Patient experiencing symptoms consistent with COVID?->Yes us Ilana Stevens MD LAB MICROBIOLOGY - GEN ERAL ORDERABLES Final Result [facility] [address] [facility] Department [place] [address] * eGFR (07/01/2024 2:02 PM CDT) [facility] eGFR >90 >=60 mL/min/1. 73 [...] was last reviewed 2021. Testing performed by: [address] [address] Blood 07/01/2024 2:02 PM CDT 07/01/2024 2:12 PM CDT Ilana Stevens MD LAB BLOOD ORDERABLES F inal Result [facility] Department [place] [address] * Differential, auto (07/01/2024 2:02 PM CDT) Neutrophil abs 5.3 1.5 - 6.5 K/cumm Comment:Testing performed by : [address] [address] Imm gran abs 0.0 0.0 - 0.1 K/cumm MARY JAEN Comment:Testing performed by : [address] [address] Lymphocyte abs 2.6 0.8 - 3.3 K/cumm MARY JANE Comment:Testing performed by : [address] [address] Monocyte abs 0.8 0.2 - 0.8 K/cumm MARY JANE Comment:Testing performed by : [address] [address] Eosinophil abs 0.2 0.0 - 0.5 K/cumm MARY JANE Comment:Testing performed by : [address] [address] Basophil abs 0.0 0.0 - 0.1 K/cumm MARY JANE Comment:Testing performed by : [address] [address] Neutrophil pct 59.1 % MARY JANE Comment: Interpretive Data Percent cell count reference ranges are not reported, since discordance with absolute values may lead to misinterpretation of CBC data. Current Interpretive Data was last revised on 2017. Testing performed by: [address] [address] Imm gran pct 0.2 % MARY JANE Comment: Interpretive Data Percent cell count reference ranges are not reported, since discordance with absolute values may lead to misinterpretation of CBC data. Current Interpretive Data was last revised on 2017. Testing performed by: [address] [address] Lymphocyte pct 29.0 % MARY JANE Comment: Interpretive Data Percent cell count reference ranges are not reported, since discordance with absolute values may lead to misinterpretation of CBC data. Current Interpretive Data was last revised on 2017. Testing performed by: [address] [address] Monocyte pct 9.3 % MARY JANE Comment: Interpretive Data Percent cell count reference ranges are not reported, since discordance with absolute values may lead to misinterpretation of CBC data. Current Interpretive Data was last revised on 2017. Testing performed by: [address] [address] Eosinophil pct 2.2 % MARY JANE Comment: Interpretive Data Percent cell count reference ranges are not reported, since discordance with absolute values may lead to misinterpretation of CBC data. Current Interpretive Data was last revised on 2017. Testing performed by: [address] [address] Basophil pct 0.2 % MARY JANE Comment: Interpretive Data Percent cell count reference ranges are not reported, since discordance with absolute values may lead to misinterpretation of CBC data. Current Interpretive Data was last revised on 2017. Testing performed by: [facility], [address] [place] [address]., [address] Blood 07/01/2024 2:02 PM CDT 07/01/2024 2:12 PM CDT us Ilana Stevens MD LAB BLOOD ORDERABLES F inal Result MARY JANE [address] [facility] Department of Laboratories [place], [place] [id number] * Pro B-type natriuretic peptide (07/01/2024 2:02 [...] Last Revised Date: 2017. Testing performed by: [facility], [address] [place] [address]., [address] Blood 07/01/2024 2:02 PM CDT 07/01/2024 2:12 PM CDT us Ilana Stevens MD LAB BLOOD ORDERABLES F inal Result [facility] [address] [facility] Department [place] [address] * (ABNORMAL) CBC with auto differential (07/01/2024 2:02 PM CDT) [facility] WBC 9.0 3.8 - 9.9 K/cumm Comment:Testing performed by : [address] [address] Hgb 13.2 11.9 - 15.5 g/dL MARY JANE Comment:Testing performed by : [address] [address] Hct 41.1 35.6 - 45.5 % MARY JANE Comment:Testing performed by : [address] [address] Plt 277 150 - 400 K/cumm MARY JANE Comment:Testing performed by : [address] [address] MPV 9.5 9.1 - 12.3 fL MARY JANE Comment:Testing performed by : [address] [address] RBC 4.53 3.90 - 5.20 M/cumm MARY JANE Comment:Testing performed by : [address] [address] MCV 90.7 81.3 - 96.4 fL MARY JANE Comment:Testing performed by : [address] [address] MCH 29.1 27.1 - 33.3 pg MARY JANE PHAM Comment:Testing performed by : [address] [address] MCHC 32.1(L) 32.3 - 35.7 g/dL MARY JANE Comment:Testing performed by : [address] [address] RDW CV 13.2 11.1 - 14.9 % MARY JANE Comment:Testing performed by : [address] [address] RDW SD 44.2 35.7 - 48.1 fL MARY JANE Comment:Testing performed by : [address] [address] NRBC abs 0.00 0.00 - 0.01 K/cumm MARY JANE Comment:Testing performed by : [address] [address] Blood 07/01/2024 2:02 PM CDT 07/01/2024 2:12 PM CDT Ilana Stevens MD LAB BLOOD ORDERABLES F inal Result [facility] Department [place] [address] * Comprehensive metabolic panel (07/01/2024 2:02 PM CDT) Sodium 137 135 - 145 mmol/L Comment:Testing performed by : [address] [address] Potassium, pl 4.2 3.3 - 4.9 mmol/L MARY JANE Comment:Testing performed by : [address] [address] Chloride 101 97 - 110 mmol/L MARY JANE Comment:Testing performed by : [address] [address] CO2 27 22 - 32 mmol/L MARY JANE Comment:Testing performed by : [address] [address] Anion gap 9 2 - 15 mmol/L MARY JANE Comment:Testing performed by : [address] [address] BUN 15 6 - 25 mg/dL MARY JANE Comment:Testing performed by : [address] [address] Creatinine 0.60 0.60 - 1.10 mg/dL MARY JANE PHAM Comment:Testing performed by : [address] [address] Glucose 166 70 - 199 mg/dL MARY [...] was last revised 2022. Testing performed by: [address] [address] Calcium 9.8 8.5 - 10.3 mg/dL MARY JANE Comment:Testing performed by : [address] [address] Bilirubin, total 0.5 0.1 - 1.2 mg/dL MARY JANE Comment:Testing performed by : [address] [address] Protein, pl 8.0 6.5 - 8.5 g/dL MARY JANE Comment:Testing performed by : [address] [address] Albumin 3.8 3.5 - 5.0 g/dL MARY JANE Comment:Testing performed by : [address] [address] Alk phos 72 40 - 130 Units/L MARY JANE Comment:Testing performed by : [address] [address] ALT 19 7 - 45 Units/L MARY JANE Comment:Testing performed by : [address] [address] AST 23 10 - 45 Units/L MARY JANE Comment:Testing performed by : [address] [address] Blood 07/01/2024 2:02 PM CDT 07/01/2024 2:12 PM CDT us Ilana Stevens MD LAB BLOOD ORDERABLES F inal Result MARY JANE [address] [facility] [place] [address] * (ABNORMAL) Hemoglobin A1c (05/21/2024 4:20 PM [employer]) Hgb A1C 8.7(H) 4.0 - 5.6 % Estimated Average Glucose 203 mg/dL MARY JANE [facility] Comment: The ADA recommends reporting an estimated Average Glucose (eAG) with all Hemoglobin A1c results using the equation derived from a study of 507 normal and diabetic adults. Minority populations were underrepresented and children were not included. (Diabetes Care 2020; 43(S1): S66-S76). The eAG is not equivalent to a fasting glucose. Blood 05/21/2024 4:20 PM [employer] FAB 05/21/2024 4:55 PM [employer]AB us Leo Henry MD LAB BLOOD ORDERABLES Final Result [facility] Department [place] [address] * (ABNORMAL) Lipid panel (05/21/2024 4:20 PM [employer]) Cholesterol 205(H) 30 - 199 mg/dL Comment: [...] 2017. Triglycerides 92 <=149 mg/dL MARY JANE [facility] Comment: Interpretive Data Ages < [...] 2017. HDL 55 >=40 mg/dL MARY JANE [facility] Comment: Interpretive Data Ages < [...] on 2017. LDL, calculated 134(H) <=129 mg/dL [facility] Comment: Interpretive Data Ages < [...] on 2023. Non-HDL Cholesterol 150 mg/dL [facility] Comment: Interpretive Data Ages < [...] revised on 2017. Chol/HDL ratio 4 [facility] Blood 05/21/2024 4:20 PM [employer] FAB 05/21/2024 4:50 PM [employer]AB Narrative [facility] - 05/22/2024 4:17 PM [employer] FAB Reflex us Leo Henry MD LAB BLOOD ORDERABLES Final Result [facility] Department [place] [address] * Dexa Axial Skeleton Bone Density 1 or 2 Site (08/02/2022 10:53 AM CDT) Anatomical Region Laterality Modality Body N/A Radiographic Lizeth ging Narrative 08/02/2022 3:34 PM CDT Patient Name: Karly Marques Date of : 1955 Date of scan: 08/02/2022 Bone mineral density was performed on a [employer] Discovery Densitometer. Based on machine cross-calibration and [...] by the International Society of Clinical Densitometry. [id number] Khris Arthur MD IMMichael DXA PROCEDURES F [...] agrees with it. ACC# Date Time Exam [id number] Aug 19, 2016 14:27:00 [facility] [id number] Diag Mamm, inc CAD, unilat L Technologist(s): Carla Harris; ; [id number] Aug 19, 2016 15:39:00 C [id number] Breast US unilateral, ltd L ACC# Date Time Exam [id number] Aug 19, 2016 14:27:00 [facility] 82754 Diag Mamm, inc CAD, unilat L Technologist(s): Carla Harris; ; [id number] Aug 19, 2016 15:39:00 C 40215 Breast US unilateral, ltd L EXAMINATION: LEFT [...] SARABIA M.D. on Aug 19 2016 4:20P [id number] Procedure Note Miscellaneous, Not In File / Provider, MD Tyler - 09/17/2016 ANTHONY SARABIA M.D. JUDY RINCON M.D. FINAL REPORT The radiology attending physician has personally reviewed this study, and has reviewed and/or edited this written report and agrees with it. ACC# Date Time Exam [id number] Aug 19, 2016 14:27:00 [facility] [address]75[address] Diag Mamm, inc CAD, unilat L Technologist(s): Carla Harris; ; [id number] Aug 19, 2016 15:39:00 [facility] [id number] Breast US unilateral, ltd L ACC# Date Time Exam [id number] Aug 19, 2016 14:27:00 C 62835 Diag Mamm, inc CAD, unilat L Technologist(s): Carla Harris; ; [id number] Aug 19, 2016 15:39:00 C 46849 Breast US unilateral, ltd L EXAMINATION: LEFT [...] SARABIA M.D. on Aug 19 2016 4:20P [id number] us Not In File Miscellaneous IMG MAMMO PROCEDURES F inal Result from Last 3 Months or Most Recently Relevant to Health Maintenance [place] [address] [facility] MEDICARE ADVANTAGE [facility]IC[facility] Address: [address] [address] [place] [address] [facility] MEDICARE ADVANTAGE [facility] MEDICARE ADVANTAGE Advance Directives For more information, please contact: [phone] Documents on File Type Date Recorded Patient Account Development Specialist Expl anation ADVANCE DIRECTIVE 12/23/2021 2:49 PM Power of Paint Sprayer Sandblaster-Medical ADVANCE DIRECTIVE 12/23/2021 2:49 PM Living Will [...] First Alternate Health Care Agent Care Teams Skidder Relationship Specialty Start Date End Date Justen Gale MD [address] [address] PCP - General 10/09/17 Liu Jerez MD Consulting Physician Gastroenterology 07/28/17 [place] [address] [address] [facility] [address] [place] [address] Consulting Physician Pulmonary Disease 08/03/17 Khris Arthur MD [address] [facility] [address] [place], [place] [id number] Medical Oncologist/Internet Marketing Consultant Medical Oncology 10/23/17 [place] [address] [facility] [address] [place] [address] Surgeon Orthopedic Surgery 10/23/17 [place] [address] [facility] [address] [place] [address] Consulting Physician Pain Management 10/23/17 [place] [address] [facility] [address] [place] [address] Referring Physician General Surgery 01/26/18 [place] [address] [place] [address] Consulting Physician Neurology 01/26/18
--- OUTSIDE RECORDS SUMMARY | 2024-09-27 02:19 | XMS_ITS | Encounter Summary ---
Author Organization [facility] Address [address] [place] [address] Phone Care Team Providers Care Water Treatment Specialist Name Role Phone Justen Gale MD Primary Care Provider David Roberts APRN, TRUANT OFFICER Unavailable Annel Rod MD Unavailable Encounter Details Date Type Department Care Team (Late st Contact Info) Description 06/05/2020 [facility] [address] [place] [address] Pili Elkins APRN, TRUANT OFFICER [address] [address] Frequency of micturition Social History [...] COVID-19? No / Unsure 2020 11:37 AM BAKE ROOM WORKER documented as of this encounter Plan of Treatment Upcoming Encounters Date Type Department Care Team (Late st Contact Info) Description 10/22/2024 11:15 AM CDT Office Visit [facility] - [facility] - [place] #[address] [place] [address] Annel Rod MD #2 [facility] [address] [place] [address] 11/13/2024 2:00 PM CDT [facility] [address] [place] [address] Angelito Alegria, ZAMZAM, TRUANT OFFICER #2 [facility] [address] [place] [address] Discharge Disposition: Discharged to home or Selfcare documented as of this encounter Procedures Procedure Name Priority Date/Time Associated Diagnosis Comments URINALYSIS REFLEX IF INDICATED BY ABNORMAL RESULTS Routine 06/05/2020 4:45 PM BAKE ROOM WORKER Frequency of micturition documented in this encounter Results * (ABNORMAL) URINALYSIS REFLEX IF INDICATED BY ABNORMAL RESULTS (06/05/2020 4:45 PM BAKE ROOM WORKER) SPECIFIC GRAVITY 1.020 1.003 - 1.030 06/05/2020 5:19 PM BAKE ROOM WORKER [facility] URINE PH 5.0 5.0 - 9.0 06/05/2020 5:19 PM BAKE ROOM WORKER [facility] WBC ESTERASE Negative Negative 06/05/2020 5:19 PM BAKE ROOM WORKER [facility] NITRITE Negative Negative 06/05/2020 5:19 PM BAKE ROOM WORKER [facility] PROTEIN, RANDOM URINE Negative Negative 06/05/2020 5:19 PM BAKE ROOM WORKER [facility] URINE GLUCOSE, QUAL Negative Negative 06/05/2020 5:19 PM BAKE ROOM WORKER [facility] URINE KETONES Negative Negative 06/05/2020 5:19 PM BAKE ROOM WORKER [facility] UROBILINOGEN Normal Normal mg/dL 06/05/2020 5:19 PM BAKE ROOM WORKER [facility] URINE BILIRUBIN Negative Negative 5:19 PM BAKE ROOM WORKER [facility] URINE BLOOD 25 /uL(A) Negative leandro/ul 06/05/2020 5:19 PM BAKE ROOM WORKER [facility] URINALYSIS COLOR Yellow 06/05/19 5:19 PM BAKE ROOM WORKER [facility] URINALYSIS CLARITY Clear 06/05/2020 5:19 PM BAKE ROOM WORKER [facility] WBC (Urine) 0-5 Negative, 0-5 /hpf 06/05/2020 5:19 PM BAKE ROOM WORKER [facility] URINE RBC'S 3-5(A) Negative, 0-2 /hpf 06/05/2020 5:19 PM BAKE ROOM WORKER [facility] EPITHELIAL CELLS Small amount /lpf 2020 5:19 PM BAKE ROOM WORKER [facility] BACTERIA, URINE Few(A) Negative /hpf 06/05/2020 5:19 PM BAKE ROOM WORKER [facility] Urine URINE SPECIMEN / Unknown Non-Phlebotomy Collection / Unknown 06/05/2020 4:45 PM BAKE ROOM WORKER 06/05/2020 5:00 PM BAKE ROOM WORKER us Pili Elkins NOZZLEMAN, TRUANT OFFICER URINE ORDERABLES Fin al Result [facility] [address] [place] [address] documented in this encounter Visit Diagnoses Diagnosis Frequency of micturition Urinary frequency documented in this encounter Additional Health Concerns Infection Onset Date Last Indicated Resolved Time COVID - 19 08/01/2024 08/01/2024 08/01/2024 3:20 PM CDT Assessment Noted Time PHQ-9 Depression Total Score: 0 09/08/19 19 1:00 PM CDT documented as of this encounter Care Teams Water Treatment Specialist Relationship Specialty Start Date End Date Justen Gale MD #2 [facility] [address] [place] [address] PCP - General Family Medicine 10/17/17 David Roberts, NOZZLEMAN, TRUANT OFFICER #[address] [place] [address] Nurse Practitioner Advanced Practice Nurse 01/31/22 Annel Rod MD #2 [facility] [address] [place] [address] Consulting Physician Endocrinology 07/01/22 documented as of this encounter
--- OUTSIDE RECORDS SUMMARY | 2024-09-27 02:19 | XMS_ITS | Encounter Summary ---
Author Organization [facility] Address [address] [place] [address] Phone Care Team Providers Care Publication Editor Name Role Phone Justen Gale MD Primary Care Provider [phone] David Roberts APRN, CLAIMS SPECIALIST Unavailable Annel Rod MD Unavailable Reason for Visit * Reason Onset Date Comments Medication Refill 08/06/2020 Encounter Details Date Type Department Care Team (Late st Contact Info) Description 08/06/2020 Refill [facility] #2 [facility] [place] [id number] Justen Gale MD #[address] [address] Medication Refill Social History Tobacco Use Types [...] Outpatient Visits 2 weeks ago CRP elevated [facility] Pili Mueller APN, CLAIMS SPECIALIST 2 months ago Increased urinary frequency [facility] Pili Mueller APN, CLAIMS SPECIALIST 5 months ago Urinary frequency [facility] Pili Mueller APN, CLAIMS SPECIALIST 8 months ago Type 2 diabetes mellitus with diabetic polyneuropathy, with long- term current use of insulin (HCC) [facility] Pili Mueller APN, CLAIMS SPECIALIST 9 months ago [facility] Justen Urbano MD Upcoming Appointments Future Appointments In 6 days Pili Elkins APN, CLAIMS SPECIALIST [facility] 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 Recent Visits Date Type Provider Dept 07/20/20 Office Visit Pili Elkins APN, CLAIMS SPECIALIST [facility] 06/05/20 Office Visit Pili Elkins APN, NETTA [facility] 02/17/20 Office Visit Pili Elkins APN, NETTA [facility] 12/03/19 Office Visit Pili Elkins APN, NETTA [facility] 11/05/19 Telemedicine Justen Gale MD [facility] 07/25/19 Telemedicine [facility] within past 460 days with a meds authorizing provider and meeting all other requirements Future Appointments Date Type Provider Dept 08/12/20 Appointment Plii Elkins APN, CNP [facility] Showing future appointments within next 90 days [...] Description 10/22/2024 11:15 AM CDT Office Visit [facility] - [facility] - [place] #[address] [place] [address] Annel Rod MD #[address] [address] 11/13/2024 2:00 PM CDT Appointment [facility] Cardiology Services [address] [place] [address] Angelito Alegria ALL AROUND GEAR MACHINE OPERATOR, CLAIMS SPECIALIST #2 [facility] [address] [place] [address] Discharge Disposition: Discharged to home or Selfcare documented as of this encounter Visit Diagnoses Not on filedocumented in this encounter Additional Health Concerns Infection Onset Date Last Indicated Resolved Time COVID - 19 08/01/2024 08/01/2024 08/01/2024 3:20 PM CDT Assessment Noted Time PHQ-9 Depression Total Score: 0 07/21/19 3:00 PM CDT documented as of this encounter Care Teams Publication Editor Relationship Specialty Start Date End Date Justen Gale MD #[address] [address] PCP - General Family Medicine 10/17/17 David Roberts APRN, CLAIMS SPECIALIST #2 [place] [address] Nurse Practitioner Advanced Practice Nurse 01/31/22 Annel Rod MD #[address] [address] Consulting Physician Endocrinology 07/01/22 documented as of this encounter
--- OUTSIDE RECORDS SUMMARY | 2024-09-27 02:19 | XMS_ITS | Referral Summary ---
Author Organization [facility] Address [address] [place] [id number] Care Team Providers Care Forging Engineer Name Role Phone Liu Jerez MD Unavailable Albert Corbin MD Unavailable Justen Gale MD Primary Care Provider Khris Arthur MD Unavailable [phone] Ko Melendez MD Unavailable [phone] John Paul Moyer MD Unavailable Annel Rod MD Unavailable Anali MARSHALL MD, Carlos M. 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) 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/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 [...] use of insulin ([facility]) 10/23/2017 Assessment & Plan (10/23/2017 [...] 10/13/2017 Assessment & Plan (05/22/2024 12:29 PM WHARF HAND): -Hx stage II, ER positive, HER2 negative breast cancer, on adjuvant exemestane -s/p bilateral mastectomies, left axillary LN dissection, with negative margins -Follows with Khris Somers -Outpatient Medical Oncology Note review indicates plan to continue on exemestane, will complete 10 years of therapy in 12/2024 -Yearly Reclast, next dose 11/2024 Chest pressure 08/01/2017 Positive blood culture 08/01/2017 Hyponatremia 08/01/2017 Diet-controlled diabetes mellitus ([facility]) 07/23 LUL (obstructive sleep apnea) 08/01/2017 Assessment & Plan (05/22/2024 12:33 PM WHARF HAND): -Hx LUL -Hospital provided CPAP ordered History of DVT (deep vein thrombosis) 08/01/2017 History of pulmonary embolism 08/01/2017 Generalized weakness 07/27/2017 Dyspnea 07/27/2017 Unintentional weight loss 07/27/2017 Acute cystitis without hematuria 07/27/2017 Nausea and vomiting 07/26/2017 Overview (07/28/2017): Added automatically from request for surgery [id number] Pulmonary embolism 08/09/2016 Assessment & Plan (10/23/2017 2:05 AM CDT): On Rivaroxaban Lymphedema of left upper extremity 08/09/2016 Assessment & Plan (05/25/2024 7:53 AM WHARF HAND): S/p L axillary lymph node dissection 2014, [...] syndrome Assessment & Plan (05/22/2024 11:18 AM WHARF HAND): -continue home Requip 5mg nightly Pain of lower extremity 03/12/2013 Overview (07/29/2016): Leg pain Essential hypertension Assessment & Plan (05/23/2024 10:42 AM WHARF HAND): -Chart history of HTN but not on meds -BP elevated on admission, likely some pain contributing -Monitor closely once pain under adequate control, discussed following up with PCP for this Chronic anticoagulation Restless leg syndrome 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 More than 4 times per year [...] in a usp (including now)? No 08/15/2023 Housing Stability Vital [...] time in the past 12 m [facility], were you homeless or living in a usp (including now)? No 05/24/2024 Personal Safety Answer Date Recorded Have you ever been in or are you currently in a harmful physical or emotional relationship or is someone making you feel afraid or unsafe? Denies 07/01/2024 Comments No Sex and Gender Information Value Date Recorded Sex Assigned at Not on file Legal Sex Female 12:24 AM WHARF HAND Gender Identity Not on file Sexual [...] CDT HEMOGLOBIN A1C STAT 05/21/2024 4:20 PM WHARF HAND LIPID PANEL STAT 05/21/2024 4:20 PM WHARF HAND DEXA AXIAL SKELETON BONE DENSITY 1 OR [...] breath since last night. 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 AR: VALERY Report ID: [id number] Reading Location: [id number] Procedure Note Juve Gallegos MD - 07/01/2024 [...] Juve Gallegos M.D. AR: VALERY Report ID: [id number] Reading Location: [place] [address] PROCEDURES Final Resu lt * (ABNORMAL) Troponin T high-sensitivity 2-hour (07/01/2024 3:43 PM CDT) Trop T hs 27(H) <=14 ng/L Comment: Interpretive Data For further hscTnT resources including the diagnostic algorithm and an aid in interpretation, copy and paste this link: https://nrl.testcatalog.org/show/hsTrop Current Interpretive Data last revised 2020. Testing performed by: [address] [address] Trop T hs delta 0 ng/L MARY JANE [facility] Comment:Testing performed by : [address] [address] Trop T hs interp Insignificant MARY JANE [facility] Comment:Testing performed by : [address] [address] Blood 07/01/2024 3:43 PM CDT 07/01/2024 3:52 PM CDT us Ilana Stevens MD LAB BLOOD ORDERABLES F inal Result MARY JANE [address] [facility] Department [place] [address] * (ABNORMAL) Urinalysis reflex to microscopic and culture Urine (07/01/2024 3:43 PM CDT) Color, ur Yellow Yellow Comment:Testing performed by : [address] [address] Clarity, ur Clear Clear MARY JANE Comment:Testing performed by : [address] [address] Specific gravity, ur 1.020 1.003 - 1.030 MARY JANE Comment:Testing performed by : [address] [address] pH, urine 6.0 MARY JANE Comment: Interpretive Data U rine pH is affected by diet, medications, systemic acid-base disturbances, and renal tubular function. pH may affect urinary stone formation. For example, urine pH below 6.0 may help reduce the tendency for calcium phosphate stones and pH greater than 6.0 may reduce the tendency for uric acid stone formation. Source: [facility] [employer] Current Interpretive Data was last revised on 2017 Testing performed by: [address] [address] Protein, ur ql Negative Negative MARY JANE Comment:Testing performed by : [address] [address] Glucose, ur ql 2+(A) Negative MARY JANE Comment:Testing performed by : [address] [address] Ketones, ur Negative Negative MARY JANE Comment:Testing performed by : [address] [address] Bilirubin, ur Negative Negative MARY JANE Comment:Testing performed by : [address] [address] Blood, ur Trace(A) Negative MARY JANE Comment:Testing performed by : [address] [address] Urobilinogen, ur <2.0 <2.0 mg/dL MARY JANE PHAM Comment:Testing performed by : [address] [address] Nitrite, ur Negative Negative MARY JANE Comment:Testing performed by : [address] [address] Leukocyte esterase, ur Negative Negative MARY JANE Comment:Testing performed by : [address] [address] UA reflex comment Reflex to microscopic UA will be performed. MARY JANE Comment:Testing performed by : [address], [place]., [address] Urine 07/01/2024 3:43 PM CDT 07/01/2024 3:52 PM CDT us Ilana Stevens MD LAB MICROBIOLOGY - GEN ERAL ORDERABLES Final Result Performing Organization Address City/State/[facility] Co de Phone Number MARY JANE [address] [facility] Department [place] [address] * (ABNORMAL) Urinalysis, microscopic only (07/01/2024 3:43 PM CDT) WBC, ur 0-5 0 - 5 /HPF Comment:Testing performed by : [address] [address] RBC, ur 3-5(A) 0 - 2 /HPF MARY JANE PHAM Comment:Testing performed by : [address] [address] Epithelial cells, squamous, ur 1-5 0 - 5 /HPF MARY JANE PHAM Comment:Testing performed by : [address] [address] Mucous, ur Present(A) MARY JANE Comment:Testing performed by : [address] [address] Culture Reflex Comment Reflex conditions for urine culture (WBC >10) not met. MARY JANE PHAM Comment:Testing performed by : [address] [address] Urine 07/01/2024 3:43 PM CDT 07/01/2024 3:52 PM CDT us Ilana Stevens MD LAB URINE ORDERABLES F inal Result [facility] [address] [facility] Department [place] [address] * XR Chest 1 Vw Portable (if [...] Romelia Bowen D.O. PS: PS Report ID: [id number] Reading Location: [id number] Procedure Note Romelia Bowen, DO - 07/01/2024 [...] Romelia Bowen D.O. PS: PS Report ID: [id number] Reading Location: [place] [address] us Ilana Stevens MD IMG XR PROCEDURES Deann l Result * ECG 12 lead (07/01/2024 2:05 PM CDT) Ventricular Rate EKG/Min 76 BPM [facility] Atrial Rate 76 BPM [facility] GA-Interval (MSEC) 130 ms [facility] QRS-Interval (MSEC) 86 ms [facility] QT-Interval (MSEC) 386 ms [facility] QTc 434 ms [facility] P [place] 26 degrees [facility] R [place] 22 degrees [facility] T [place] 46 degrees [facility] Diagnosis Normal sinus rhythm Normal ECG When compared with ECG of 28-DEC-2023 12:49, No significant change was found Confirmed by DUTCH BURGOS M.D. ([id number]) on 07/01/2024 10:10:22 PM [facility] 07/01/2024 2:05 PM CDT 07/01/2024 10:10 PM CDT us Ilana Stevens MD ECG ORDERABLES Final Result [facility] * (ABNORMAL) Troponin T high-sensitivity series (baseline, 2hr, 4hr, 6hr) (07/01/2024 2:02 PM CDT) Trop T hs 27(H) <=14 ng/L Comment: Interpretive Data For further hscTnT resources including the diagnostic algorithm and an aid in interpretation, copy and paste this link: https://nrl.testcatalog.org/show/hsTrop Current Interpretive Data last revised 2020. Testing performed by: [address] [address] Blood 07/01/2024 2:02 PM CDT 07/01/2024 2:12 PM CDT Ilana Stevens MD LAB BLOOD ORDERABLES F inal Result [place] [address] [facility] Department [place] [address] * Influenza A/B, RSV, and COVID-19 PCR Nasopharyngeal (07/01/2024 2:02 PM CDT) Pathologist [facility] COVID-19 RNA Negative Negative Comment:Testing performed by : [address] [address] Influenza A RNA Negative Negative [facility] Comment:Testing performed by : [address] [address] Influenza B RNA Negative Negative [facility] Comment:Testing performed by : [address] [address] RSV RNA Negative Negative [facility] Comment: Interpretive data: Testing performed by [facility]. This test is performed using the [employer] Xpert Xpress CoV-2/Flu/RSV plus assay. This is a multiplex, real-time reverse transcriptase PCR assay intended for the qualitative detection of nucleic acid from SARS-CoV-2, influenza A, influenza B, and respiratory syncytial virus. This assay has been cleared by the [place] Food and Drug administration. The performance characteristics have been verified by the [facility]. Results must be considered in the clinical context, and a negative result does not rule out infection. Interpretive Data last revised 2023 Testing performed by: [address] [address] Nasopharyngeal 07/01/2024 2: 02 PM CDT 07/01/2024 2:12 PM CDT Narrative MARY JANE - 07/01/2024 2:52 PM CDT Is the Patient experiencing symptoms consistent with COVID?->Yes us Ilana Stevens MD LAB MICROBIOLOGY - GEN ERAL ORDERABLES Final Result Performing Organization Address [facility] Co de Phone Number MARY JANE [address] [place] [address] * eGFR (07/01/2024 2:02 PM CDT) Pathologist [...] reviewed 2021. Testing performed by: [facility], [address] [place] [address]., [address] Blood 07/01/2024 2:02 PM CDT 07/01/2024 2:12 PM CDT us Ilana Stevens MD LAB BLOOD ORDERABLES F inal Result Performing Organization Address City/[facility]/ZIP Co de Phone Number MARY JANE [address] [place] [address] * Differential, auto (07/01/2024 2:02 PM CDT) [facility] Neutrophil abs 5.3 1.5 - 6.5 K/cumm Comment:Testing performed by : [facility], [address] [place] [address], [place]., [address] Imm gran abs 0.0 0.0 - 0.1 K/cumm [facility] Comment:Testing performed by : [address], [place]., [address] Lymphocyte abs 2.6 0.8 - 3.3 K/cumm [facility] Comment:Testing performed by : [address], [place]., [address] Monocyte abs 0.8 0.2 - 0.8 K/cumm [facility] Comment:Testing performed by : [address], [place]., [address] Eosinophil abs 0.2 0.0 - 0.5 K/cumm [facility] Comment:Testing performed by : [address], [place]., [address] Basophil abs 0.0 0.0 - 0.1 K/cumm [facility] Comment:Testing performed by : [address] [address] Neutrophil pct 59.1 % [facility] Comment: Interpretive Data Percent cell count reference ranges are not reported, since discordance with absolute values may lead to misinterpretation of CBC data. Current Interpretive Data was last revised on 2017. Testing performed by: [address] [address] Imm gran pct 0.2 % [facility] Comment: Interpretive Data Percent cell count reference ranges are not reported, since discordance with absolute values may lead to misinterpretation of CBC data. Current Interpretive Data was last revised on 2017. Testing performed by: [address] [address] Lymphocyte pct 29.0 % [facility] Comment: Interpretive Data Percent cell count reference ranges are not reported, since discordance with absolute values may lead to misinterpretation of CBC data. Current Interpretive Data was last revised on 2017. Testing performed by: [address] [address] Monocyte pct 9.3 % [facility] Comment: Interpretive Data Percent cell count reference ranges are not reported, since discordance with absolute values may lead to misinterpretation of CBC data. Current Interpretive Data was last revised on 2017. Testing performed by: [address] [address] Eosinophil pct 2.2 % [facility] Comment: Interpretive Data Percent cell count reference ranges are not reported, since discordance with absolute values may lead to misinterpretation of CBC data. Current Interpretive Data was last revised on 2017. Testing performed by: [address] [address] Basophil pct 0.2 % [facility] Comment: Interpretive Data Percent cell count reference ranges are not reported, since discordance with absolute values may lead to misinterpretation of CBC data. Current Interpretive Data was last revised on 2017. Testing performed by: [address] [address] Blood 07/01/2024 2:02 PM CDT 07/01/2024 2:12 PM CDT us Ilana Stevens MD LAB BLOOD ORDERABLES F inal Result [facility] [address] [facility] Department [place] [address] * Pro B-type natriuretic peptide [...] Last Revised Date: 2017. Testing performed by: [address] [address] Blood 07/01/2024 2:02 PM CDT 07/01/2024 2:12 PM CDT Ilana Stevens MD LAB BLOOD ORDERABLES F inal Result [facility] [address] [facility] Department [place] [address] * (ABNORMAL) CBC with auto differential (07/01/2024 2:02 PM CDT) [facility] WBC 9.0 3.8 - 9.9 K/cumm Comment:Testing performed by : [address] [address] Hgb 13.2 11.9 - 15.5 g/dL MARY JANE PHAM Comment:Testing performed by : [address] [address] Hct 41.1 35.6 - 45.5 % MARY JANE [facility] Comment:Testing performed by : [address] [address] Plt 277 150 - 400 K/cumm MARY JANE PH[facility] Comment:Testing performed by : [address] [address] MPV 9.5 9.1 - 12.3 fL MARY JANE [facility] Comment:Testing performed by : [address] [address] RBC 4.53 3.90 - 5.20 M/cumm MARY JANE [facility] Comment:Testing performed by : [address] [address] MCV 90.7 81.3 - 96.4 fL MARY JANE [facility] Comment:Testing performed by : [address] [address] MCH 29.1 27.1 - 33.3 pg MARY JANE Comment:Testing performed by : [address] [address] MCHC 32.1(L) 32.3 - 35.7 g/dL MARY JANE Comment:Testing performed by : [address] [address] RDW CV 13.2 11.1 - 14.9 % MARY JANE Comment:Testing performed by : [address] [address] RDW SD 44.2 35.7 - 48.1 fL MARY JANE Comment:Testing performed by : [address] [address] NRBC abs 0.00 0.00 - 0.01 K/cumm MARY JANE Comment:Testing performed by : [address] [address] Blood 07/01/2024 2:02 PM CDT 07/01/2024 2:12 PM CDT us Ilana Stevens MD LAB BLOOD ORDERABLES F inal Result [facility] [address] [facility] Department [place] [address] * Comprehensive metabolic panel (07/01/2024 2:02 PM CDT) Pathologist [facility] Sodium 137 135 - 145 mmol/L Comment:Testing performed by : [address], [address] Potassium, pl 4.2 3.3 - 4.9 mmol/L MARY JANE Comment:Testing performed by : [address], [place]., [address] Chloride 101 97 - 110 mmol/L MARY JANE Comment:Testing performed by : [address], [place]., [address] CO2 27 22 - 32 mmol/L MARY JANE Comment:Testing performed by : [address], [place]., [address] Anion gap 9 2 - 15 mmol/L MARY JANE Comment:Testing performed by : [address], [place]., [address] BUN 15 6 - 25 mg/dL [facility] Comment:Testing performed by : [address], [place]., [address] Creatinine 0.60 0.60 - 1.10 mg/dL MARY JANE Comment:Testing performed by : [address], [place]., [address] Glucose 166 70 - 199 mg/dL MARY [...] was last revised 2022. Testing performed by: [address] [address] Calcium 9.8 8.5 - 10.3 mg/dL MARY JANE Comment:Testing performed by : [address] [address] Bilirubin, total 0.5 0.1 - 1.2 mg/dL MARY JANE Comment:Testing performed by : [address] [address] Protein, pl 8.0 6.5 - 8.5 g/dL MARY JANE Comment:Testing performed by : [address] [address] Albumin 3.8 3.5 - 5.0 g/dL MARY JANE Comment:Testing performed by : [address] [address] Alk phos 72 40 - 130 Units/L MARY JANE Comment:Testing performed by : [address] [address] ALT 19 7 - 45 Units/L MARY JANE Comment:Testing performed by : [address] [address] AST 23 10 - 45 Units/L MARY JANE Comment:Testing performed by : [address] [address] Blood 07/01/2024 2:02 PM CDT 07/01/2024 2:12 PM CDT us Ilana Stevens MD LAB BLOOD ORDERABLES F inal Result Performing Organization Address City/[facility]/ZIP Co de Phone Number [facility] [address] [facility] Department [place] [address] * (ABNORMAL) Hemoglobin A1c (05/21/2024 4:20 PM WHARF HAND) [facility] Hgb A1C 8.7(H) 4.0 - 5.6 % Estimated Average Glucose 203 mg/dL [facility] Comment: The ADA recommends reporting an estimated Average Glucose (eAG) with all Hemoglobin A1c results using the equation derived from a study of 507 normal and diabetic adults. Minority populations were underrepresented and children were not included. (Diabetes Care 2020; 43(S1): S66-S76). The eAG is not equivalent to a fasting glucose. Blood 05/21/2024 4:20 PM WHARF HAND 05/21/2024 4:55 PM WHARF HAND us Leo Henry MD LAB BLOOD ORDERABLES Final Result Performing Organization Address City/[facility]/ZIP Co de Phone Number [facility] Department [place] [address] * (ABNORMAL) Lipid panel (05/21/2024 4:20 PM WHARF HAND) Cholesterol 205(H) 30 - 199 mg/dL Comment: [...] Triglycerides 92 <=149 mg/dL MARY JANE [facility] Comment: Interpretive Data Ages < or [...] HDL 55 >=40 mg/dL MARY JANE [facility] Comment: Interpretive Data Ages < or [...] calculated 134(H) <=129 mg/dL MARY JANE [facility] Comment: Interpretive Data Ages < or [...] revised on 2023. Non-HDL Cholesterol 150 mg/dL [facility] Comment: Interpretive Data Ages [...] 4 [facility] Blood 05/21/2024 4:20 PM WHARF HAND 05/21/2024 4:50 PM WHARF HAND Narrative [facility] - 05/22/2024 4:17 PM WHARF HAND Reflex us Leo Henry MD LAB BLOOD ORDERABLES Final Result [facility] [place] [address] * Dexa Axial Skeleton Bone Density 1 or 2 Site (08/02/2022 10:53 AM CDT) Anatomical Region Laterality Modality Body N/A Radiographic Lizeth ging Narrative 08/02/2022 3:34 PM CDT Patient Name: Karly Marques Date of : 1955 Date of scan: 08/02/2022 Bone mineral density was performed on a [employer] Discovery Densitometer. Based on machine cross-calibration and [...] by the International Society of Clinical Densitometry. [id number] us Khris Arthur MD IMG DXA PROCEDURES [...] agrees with it. ACC# Date Time Exam [id number] Aug 19, 2016 14:27:00 [facility] [place] [address] [employer] CAD, unilat L Technologist(s): Carla Harris; ; [id number] Aug 19, 2016 15:39:00 [facility] [place] [address] Breast US unilateral, ltd L ACC# Date Time Exam [id number] Aug 19, 2016 14:27:00 [facility] [place] [address] [employer] CAD, unilat L Technologist(s): Carla Harris; ; [id number] Aug 19, 2016 15:39:00 [facility] [place] [address] Breast US unilateral, ltd L EXAMINATION: LEFT [...] SARABIA M.D. on Aug 19 2016 4:20P [id number] Procedure Note Miscellaneous, Not In File / Provider, MD Tyler - 09/17/2016 ANTHONY SARABIA M.D. JUDY RINCON M.D. FINAL REPORT The radiology attending physician has personally reviewed this study, and has reviewed and/or edited this written report and agrees with it. ACC# Date Time Exam [id number] Aug 19, 2016 14:27:00 [facility] [place] [address] [employer] CAD, unilat L Technologist(s): Carla Harris; ; [id number] Aug 19, 2016 15:39:00 [facility] [place] [address] Breast US unilateral, ltd L ACC# Date Time Exam [id number] Aug 19, 2016 14:27:00 [facility] [place] [address] [employer] CAD, unilat L Technologist(s): Carla Harris; ; [id number] Aug 19, 2016 15:39:00 [facility] [place] [address] Breast US unilateral, ltd L EXAMINATION: LEFT [...] SARABIA M.D. on Aug 19 2016 4:20P [id number] us Not In File Miscellaneous IMG MAMMO PROCEDURES F inal Result from Last 3 Months or Most Recently Relevant to Health Maintenance Insurance IDPA [facility] MEDICARE ADVANTAGE [facility] MEDICARE ADVANTAGE [facility] MEDICARE ADVANTAGE Advance Directives For more information, please contact: [phone] Documents on File Type Date Recorded Patient Contract Attorney Expl anation ADVANCE DIRECTIVE 12/23/2021 2:49 PM Power of Computer Programming Manager-Medical ADVANCE DIRECTIVE 12/23/2021 2:49 PM Living [...] Agents on File Name Relationship Healthcare Agent [facility] Yunior Marques Daughter Health Care Agent [phone] (Mobile) Jimmie Marques Spouse First Alternate Health Care Agent Care Teams Forging Engineer Relationship Specialty Start Date End Date Justen Gale MD [address] [address] PCP - General 10/09/17 Liu Jerez MD Consulting Physician Gastroenterology 07/28/17 [place] [address] [facility] [address] [place] [address] Consulting Physician Pulmonary Disease 08/03/17 Khris Arthur MD [address] [facility] [address] [place], [place] [id number] Medical Oncologist/Cardiology Nurse Practitioner Medical Oncology 10/23/17 [place] [address] [facility] [address] [place] [address] Surgeon Orthopedic Surgery 10/23/17 [place] [address] [address] Consulting Physician Pain Management 10/23/17 [place] [address] [facility] [address] [place] [address] Referring Physician General Surgery 01/26/18 [place] [address] [facility] [address] [place] [address] Consulting Physician Neurology 01/26/18
--- OUTSIDE RECORDS SUMMARY | 2024-09-27 02:19 | XMS_ITS | Clinical Summary ---
Author Organization [facility] Address [address] [facility] [place] [address] Care Team Providers Care Client Services Coordinator Name Role Phone Justen Gale MD Primary Care Provider [phone] Source Comments [facility] Affiliates and Associated Physician Practices is amultiple site organization consisting of ambulatory clinics and hospital sitesin [place], [place], [place] and [place]. This disclosure is being madepursuant to the Care Everywhere program and may not contain all information available regarding this patient. Last updated 18.[facility] [employer] Allergies Active Allergy Reactions Criticality Noted Date [...] Gluc Sensor (FreeStyle Eileen 2 Sensor Systm) [facility] [place] APPLY 1 SENSOR AND WEAR FOR 14 [...] Team Description 08/14/2024 Results [place] [address] Josué Bernal PA-C 08/13/2024 Telephone ER at [facility] [address] [place] [address] Jordana Abdul MD ER UC Follow-up 08/09/2024 6:46 PM CDT - 08/09/2024 9:35 PM CDT Emergency ER at [address] [id number] Yasmin Matthew DO Shortness of breath; Strep [...] medical care, and heating? Somewhat hard 05/16/2023 [facility] [place] of Occupat ional Health - Occupational [...] a group home (including now)? 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 Gender Identity Not on file [...] this topic Medical Devices Implanted Type Area Implementation Manager Device Identifier Shelf Expiration Date Model / Serial / Lot Lead Nrstm 60cm Penta 3mm Pdl 16 Chnl Implanted:Qt y: 1 on 09/16/2021 by Maxi Gregg MD at [facility] Right: Spine Thoracic Advanced [employer] [id number] / / Description:CAMILO Slnt Dura Duraseal Pg Trilysine Amine 5 Implanted:Qt y: 1 on 09/16/2021 by Maxi Gregg MD at [facility] Right: Spine Thoracic Integra [employer] David [id number] / / Description:CAMILO Proclaim Plus 5 Implanted:Qt y: 1 on 02/16/2023 by Maxi Gregg MD at [facility] Left: Back Cardenas Spine [id number] 11/07/2024 [id number] / [id number] / Explanted Type Area Implementation Manager Device Identifier Shelf Expiration Date Model / Serial / Lot Gntr Nrstm 1.95inx2.19in Proclaim Elt Implanted:Qty: 1 on 09/16/2021 by Maxi Gregg MD at [facility] Explanted:Qty: 1 on 10/30/2021 by Maxi Gregg MD at [facility] Right: Spine Thoracic [facility] [...] 08/09/2024 8:46 PM CDT [facility] Specific Hepzibah UA 1.014 1.005 - 1.030 08/09/2024 8:46 [...] # /hpf 08/09/2024 8:46 PM CDT [facility] Bacteria UA Trace(A) None Seen 08/09/2024 8:46 PM CDT [facility] Squamous Epithelial Cells None Seen 0 - 5 /hpf 08/09/2024 8:46 PM CDT [facility] Mucus UA 1+ /LPF 08/09/2024 8:46 PM CDT [facility] Urine URINE SPECIMEN OBTAINED BY CLEAN CATCH PROCEDURE / Unknown 08/09/2024 8:39 PM CDT 08/09/2024 8:39 PM CDT Narrative [facility] - 08/09/2024 8:46 PM CDT Yasmin Matthew DO LAB - URINALYSIS ORDERABLES Final Result Performing Organization Address City/State/[facility] Co de Phone Number [facility] [address] [place] [address] * (ABNORMAL) CULTURE URINE (08/09/2024 8:39 PM CDT) [facility] Culture Urine 50,000-100,000 CFU/mL Escherichia coli(A) TERRANCE 08/12/2024 4:[address] [facility] Culture Urine 10,000-50,000 CFU/mL urogenital evelio TERRANCE 08/12/2024 4:[address] [facility] Urine URINE SPECIMEN OBTAINED BY CLEAN CATCH PROCEDURE / Unknown 08/09/2024 8:39 PM CDT 08/09/2024 8:39 PM CDT Narrative [facility] - 08/12/2024 4:04 AM CDT [...] LAB - MICROBIOLOGY ORDERABLE S Final Result [facility] [address] [facility] [place], [place] [address], [facility] [phone] * SARS-COV-2 (COVID-19) FLU A/B RSV PCR RAPID (08/09/2024 7:40 PM CDT) [facility] COVID-19 PCR Not detected Not detected 08/10/19 8:24 PM CDT [facility] Influenza A PCR Not detected Not detected 08/09/2024 8:24 PM CDT [facility] Influenza B PCR Not detected Not detected 08/09/2024 8:24 PM CDT [facility] RSV PCR Not detected Not detected 08/09/2024 8:24 PM CDT [facility] Microbiology SPECIMEN FROM NASOPHARYNGEAL STRUCTURE / Unknown Collection / Unknown 08/09/2024 7:40 PM CDT 08/09/2024 7:40 PM CDT Narrative [facility] - 08/09/2024 8:24 PM CDT This [...] Final Result Performing Organization Address [facility] Co de Phone Number [facility] [address] [place] [phone] * (ABNORMAL) STREP A SCREEN DIRECT W RFLX STREP A CULTURE (08/09/2024 7:40 PM CDT) [facility] Strep A Rapid Positive(A ) Negative 08/09/2024 7:53 PM CDT [facility] Microbiology ENTIRE THROAT (SURFACE REGION OF NECK) / Unknown Collection / Unknown 08/09/2024 7:40 PM CDT 08/09/2024 7:40 PM CDT Yasmin Vipul LAB - MICROBIOLOGY ORDERABLE S Final Result Performing Organization Address [facility] de Phone Number [facility] [address] [place] [address] * EKG 12-LEAD (08/09/2024 7:06 PM CDT) Ventricular Rate 86 BPM [facility] Atrial Rate 86 BPM [facility] P-R Interval 122 ms [facility] QRS Duration ms 86 ms [facility] Q-T Interval ms 370 ms [facility] QTC Calculation (Bezet) 442 ms [facility] Calculated R Universal 8 degrees [facility] Calculated T Universal 51 degrees [facility] Interpretation EKG NORMAL SINUS RHYTHM WITH SINUS ARRHYTHMIA SEPTAL INFARCT , AGE UNDETERMINED ABNORMAL ECG WHEN COMPARED WITH ECG OF 09-AUG-2024 13:34, SINUS RHYTHM HAS REPLACED ECTOPIC ATRIAL RHYTHM SEPTAL INFARCT IS NOW PRESENT Confirmed by Gil Perrin MD ([id number]) on 08/10/2024 9:03:52 AM [facility] 08/09/2024 7:06 PM CDT 08/10/2024 9:03 AM CDT Josué Bernal PA-C ECG ORDERABLES Edited Re sult - Final Performing Organization Address City/[facility]/ZIP Co de Phone Number [facility] * TROPONIN-I HIGH SENSITIVE REFLEX 1HOUR (08/09/2024 3:29 PM CDT) [facility] Troponin I High Sensitive 5 <=14 ng/L 08/09/2024 4:50 PM CDT [facility] Delta Troponin I HS 08/09/2024 4:50 PM CDT [facility] Comment:Delta value intentio yissel not calculated. Baseline to 1 hour specimen collection interval exceeded. Blood BLOOD SPECIMEN / Unknown Venipuncture / Unknown 08/09/2024 3:29 PM CDT 08/09/2024 3:33 PM CDT Josué Bernal PA-C LAB - CHEMISTRY ORDERABLE S Final Result Performing Organization Address [facility] Co de Phone Number [facility] [address] [place] [address] * XR CHEST 2VW (08/09/2024 1:59 PM [...] BASELINE + 1HR (08/09/2024 1:40 PM CDT) [facility] Troponin I High Sensitive 6 <=14 ng/L 08/09/2024 2:14 PM CDT [facility] Blood BLOOD SPECIMEN / Unknown Venipuncture / Unknown 08/09/2024 1:40 PM CDT 08/09/2024 1:43 PM CDT Josué Bernal PA-C LAB - CHEMISTRY ORDERABLE S Final Result [facility] [address] [place] [address] * (ABNORMAL) CBC W AUTO DIFFERENTIAL (08/09/2024 1:40 PM CDT) [facility] WBC 15.6(H) 4.0 - 10.7 x10E9/L 08/09/2024 1:47 PM CDT [facility] RBC Count 4.44 3.90 - 5.20 x10E12/L 08/09/2024 1:47 PM CDT [facility] Hemoglobin 13.0 11.9 - 15.8 g/dL 08/09/2024 1:47 PM CDT [facility] Hematocrit 40.4 34.8 - 46.1 % 08/09/2024 1:47 PM CDT [facility] MCV 91.0 80.0 - 98.0 fL 08/09/2024 1:47 PM CDT [facility] MCH 29.3 26.7 - 33.6 pg 08/09/2024 1:47 PM CDT [facility] MCHC 32.2 31.7 - 36.3 g/dL 08/09/2024 1:47 PM CDT [facility] RDW-CV 13.0 11.3 - 14.8 % 08/09/2024 1:47 PM CDT [facility] Platelet Count 249 150 - 420 x10E9/L 08/09/2024 1:47 PM CDT [facility] MPV 9.6 7.8 - 11.4 fL 08/09/2024 1:47 PM CDT [facility] Neutrophil % 72.7 41.0 - 74.0 % 08/09/2024 1:47 PM CDT [facility] Lymphocyte % 18.0 17.0 - 47.0 % 08/09/2024 1:47 PM CDT [facility] Monocyte % 7.5 3.0 - 11.0 % 08/09/2024 1:47 PM CDT [facility] Eosinophil % 1.2 0.0 - 7.0 % 08/09/2024 1:47 PM CDT [facility] Basophil % 0.2 0.0 - 1.6 % 08/09/2024 1:47 PM CDT [facility] Immature Granulocytes % 0.4 0.0 - 1.0 % 08/09/2024 1:47 PM CDT [facility] Neutrophil Absolute 11.35(H) 1.60 - 7.50 x10E9/L 08/09/2024 1:47 PM CDT [facility] Lymphocyte Absolute 2.82 1.00 - 4.40 x10E9/L 08/09/2024 1:47 PM CDT [facility] Monocyte Absolute 1.18(H) 0.15 - 1.00 x10E9/L 08/09/2024 1:47 PM CDT [facility] Eosinophil Absolute 0.19 0.00 - 0.60 x10E9/L 08/09/2024 1:47 PM CDT [facility] Basophil Absolute 0.03 0.00 - 0.13 x10E9/L 08/09/2024 1:47 PM CDT [facility] Blood BLOOD SPECIMEN / Unknown Venipuncture / Unknown 08/09/2024 1:40 PM CDT 08/09/2024 1:43 PM CDT Josué MCKEON-C LAB - HEMATOLOGY ORDERABL ES Final Result Performing Organization Address [facility] Co de Phone Number [facility] [address] [place] [address] * B-TYPE NATRIURETIC PEPTIDE (08/09/2024 1:40 PM CDT) BNP 29 <=100 pg/mL 08/09/2024 2:11 PM CDT [facility] Blood BLOOD SPECIMEN / Unknown Venipuncture / Unknown 08/09/2024 1:40 PM CDT 08/09/2024 1:43 PM CDT Narrative [facility] - 08/09/2024 2:11 PM CDT A [...] Final Result Performing Organization Address [facility] Co de Phone Number [facility] [address] [place] [address] * (ABNORMAL) COMPREHENSIVE METABOLIC PANEL (08/09/2024 1:40 PM CDT) [facility] Glucose 212(H) 70 - 99 mg/dL 08/09/2024 2:09 PM CDT [facility] Sodium 136 136 - 145 mmol/L 08/09/2024 2:09 PM CDT [facility] Potassium 3.9 3.5 - 5.1 mmol/L 08/09/2024 2:09 PM CDT [facility] Chloride 103 98 - 107 mmol/L 08/09/2024 2:09 PM CDT [facility] CO2 24 22 - 29 mmol/L 08/09/2024 2:09 PM T [facility] Calcium 9.4 8.4 - 10.4 mg/dL 08/09/2024 2:09 PM [facility] Anion Gap 9 6 - 16 mmol/L 08/09/2024 2:09 PM T [facility] BUN 19 7 - 26 mg/dL 08/09/2024 2:09 PM T [facility] Creatinine 0.82 0.57 - 1.11 mg/dL 08/09/2024 2:09 PM [facility] Alkaline Phosphatase 68 40 - 150 U/L 08/09/2024 2:09 PM CDT [facility] ALT 22 6 - 57 U/L 08/09/2024 2:09 PM T [facility] AST 23 10 - 48 U/L 08/09/2024 2:09 PM [facility] Protein Total 8.0 6.4 - 8.3 gm/dL 08/09/2024 2:09 PM T [facility] Albumin 3.3(L) 3.4 - 5.0 gm/dL 08/09/2024 2:09 PM [facility] Bilirubin Total 0.9 0.2 - 1.2 mg/dL 08/09/2024 2:09 PM [facility] eGFR by CKD-EPI 78(L) >=90 mL/min/1.7 3 m2 08/09/2024 2:09 PM [facility] Blood BLOOD SPECIMEN / Unknown Venipuncture / Unknown 08/09/2024 1:40 PM CDT 08/09/2024 1:43 PM CDT Josué MCKEON-Ana Laura LAB - CHEMISTRY ORDERABLE S Final Result Performing Organization Address [facility] de Phone Number [facility] [address] [place], [place] [id number] * (ABNORMAL) MAGNESIUM BLOOD (08/09/2024 1:40 PM CDT) Pathologist [facility] Magnesium 1.5(L) 1.6 - 2.6 mg/dL 08/09/2024 2:09 PM CDT [facility] Blood BLOOD SPECIMEN / Unknown Venipuncture / Unknown 08/09/2024 1:40 PM CDT 08/09/2024 1:43 PM CDT Josué MCKEON-C LAB - CHEMISTRY ORDERABLE S Final Result Performing Organization Address [facility] de Phone Number [facility] [address] [place] [address] * CK BLOOD (08/09/2024 1:40 PM CDT) [facility] CK 107 29 - 168 U/L 08/09/2024 7:44 PM CDT [facility] Blood BLOOD SPECIMEN / Unknown Venipuncture / Unknown 08/09/2024 1:40 PM CDT 08/09/2024 1:43 PM CDT Yasmin Matthew DO LAB - CHEMISTRY ORDERABLES F inal Result Performing Organization Address [facility] Co de Phone Number [facility] [address] [place] [address] * HEPATITIS C AB SCREEN RFLX NAAT QUANT (02/21/2023 6:30 PM CDT) [facility] Hepatitis C Antibody Non-react hugh Non-reac tive 02/21/2023 7:32 PM CDT [facility] Comment:Hepatitis C Antibody screen [...] ORDERABLES Fi nal Result Performing Organization Address City/[facility]/ZIP Co de Phone Number [facility] [address] [place] [address], [place] [phone] * (ABNORMAL) HEMOGLOBIN A1C (12/25/2022 3:56 AM CDT) Hemoglobin A1c 8.6(H) <=5.6 % 12/25/2022 2:47 PM CDT [facility] Estimated Average Glucose 200 mg/dL 12/25/2022 2:47 PM CDT [facility] Comment: HbA1c Interpretation: Normal : < 5.7% Pre-diabetes: 5.7-6.4% Diabetes: Equal to or greater than 6.5% Test results diagnostic of diabetes should be repeated for confirmation. Treatment target values recommended by ADA and other clinical organizations should be used to evaluate metabolic control in patients. Reference: [place] [employer] Association, Standards of Care in Diabetes [...] BLES Final Result [facility] [address] [place] [address], [place] [phone] from Last 3 Months or Most Recently [...] 3:37 AM 03/23/2023 7:14 PM Care Teams Client Services Coordinator Relationship Specialty Start Date End Date Justen Gale MD PCP - General 07/05/21
--- OUTSIDE RECORDS SUMMARY | 2024-09-27 02:19 | XMS_ITS | Encounter Summary ---
Author Organization [facility] Address [address] [place] [address] Phone Care Team Providers Care 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 Forming Name Role Phone Justen Gale MD Primary Care Provider David Roberts APRN, ETL INFORMATICA DEVELOPER Unavailable [phone] Annel Rod MD Unavailable Reason for Visit * Reason Comments Medication Refill Encounter Details Date Type Department Care Team (Late st Contact Info) Description 02/17/2021 Refill [facility] [address] [place] [id number] Justen Gale MD [address] [address] Medication Refill Social History Tobacco Use Types [...] Mcgee 06/05/20 Office Visit Pili Elkins APRN, ETL INFORMATICA DEVELOPER [facility] Showing recent visits within past 365 days and meeting all other requirements Future Appointments Date Type Provider Dept 03/02/21 Appointment Vince Hermosillo MD [facility] Showing future appointments within next 90 days and meeting all other requirements documented in this encounter Plan of Treatment Upcoming Encounters Date Type Department Care Team (Late st Contact Info) Description 10/22/2024 11:15 AM CDT Office Visit [facility] - Endocrinology [facility] [address] [place] [address] Annel Rod MD #2 [facility] [address] [place] [address] 11/13/2024 2:00 PM CDT Appointment [facility] Cardiology Services [address] [place] [address] Angelito Alegria, FURNACE ERECTOR, ETL INFORMATICA DEVELOPER [address]2 [facility] [address] [place] [address] Discharge Disposition: Discharged to home or Selfcare documented as of this encounter Visit Diagnoses Not on filedocumented in this encounter Additional Health Concerns Infection Onset Date Last Indicated Resolved Time COVID - 19 08/01/2024 08/01/2024 08/01/2024 3:20 PM CDT Assessment Noted Time PHQ-9 Depression Total Score: 0 07/21/19 3:00 PM CDT documented as of this encounter Care Teams 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 Forming Relationship Specialty Start Date End Date Justen Gale MD #[address] [address] PCP - General Family Medicine 10/17/17 David Roberts FURNACE ERECTOR, ETL INFORMATICA DEVELOPER [address] [place] [address] Nurse Practitioner Advanced Practice Nurse 01/31/22 Annel Rod MD #[address] [address] Consulting Physician Endocrinology 07/01/22 documented as of this encounter
[2024-09-27] MEDS: IBUPROFEN IV 400 MG in SODIUM CHLORIDE 0.9% IV 100 ML 208 MG IVPB (02:20)
--- OUTSIDE RECORDS SUMMARY | 2024-09-27 02:20 | XMS_ITS | Encounter Summary ---
Author Organization [facility] Address [address] [place] [address] Phone Care Team Providers Care Senior Data Quality Analyst Name Role Phone Justen Gale MD Primary Care Provider David Roberts APRN, ACID MIXER Unavailable [phone] Annel Rod MD Unavailable Reason for Visit * Reason Onset Date Comments Sore Throat 09/02/2024 Encounter Details Date Type Department Care Team (Late st Contact Info) Description 09/02/2024 [facility] [address] [place] [address] Justen Gale MD #[address] [address] Sore Throat Social History Tobacco Use Types Packs/Day Years Used Date Smoking Tobacco: Never Smokeless Tobacco: Never Alcohol Use Standard Drinks/Week Comments No 0 (1 standard drink = 0.6 oz pur e alcohol) [facility] Utilities Answer Date Recorded In the [...] do you attend chur or mormon services? More than 4 times [...] Total Score - Questions 1-9 0 07/23 [facility] of Occupat ional Health - Occupational [...] any time in the past 12 [facility], were you homeless or living in a [facility] (including now)? No 08/06/2024 Education Answer Date [...] Pharmacy, medications, and allergies reviewed. Discussed utilizing [facility] to: discuss if they would prefer a [facility] message or phone call response - See [...] Ulcers - Caller Reports Outcome: Transfer to chemistry instructor queue Reason: Caller denied all higher acuity questions The caller accepted this outcome. Caller Denied: * Struggling for each breath (severe trouble breathing) * Can't swallow saliva (drooling) documented in this encounter Plan of Treatment Upcoming Encounters Date Type Department Care Team (Late st Contact Info) Description 10/22/2024 11:15 AM CDT Office Visit [facility] - [place] [address] [place] [address] Annel Rod MD #[address] [address] 11/13/2024 2:00 PM CDT [facility] [address] [place] [address] Angelito Alegria, ZAMZAM, ACID MIXER #[address] [address] Discharge Disposition: Discharged to home or Selfcare documented as of this encounter Visit Diagnoses Not on filedocumented in this encounter Additional Health Concerns Assessment Noted Time PHQ-9 Depression Total Score: 0 08/02/19 25 1:09 PM CDT documented as of this encounter Care Teams Senior Data Quality Analyst Relationship Specialty Start Date End Date Justen Gale MD #[address] [address] PCP - General Family Medicine 10/17/17 David Roberts APRN, ACID MIXER [address] [place] [address] Nurse Practitioner Advanced Practice Nurse 01/31/22 Annel Rod MD #[address] [address] Consulting Physician Endocrinology 07/01/22 documented as of this encounter
--- OUTSIDE RECORDS SUMMARY | 2024-09-27 02:20 | XMS_ITS | Encounter Summary ---
Author Organization [facility] Address [address] [place] [address] Phone Care Team Providers Care Corporate Security Manager Name Role Phone Justen Gale MD Primary Care Provider David Roberts APRN, SOLE CONDITIONER Unavailable Annel Rod MD Unavailable Reason for Visit * Reason Comments Medication Refill Encounter Details Date Type Department Care Team (Late st Contact Info) Description 07/14/2022 Refill [facility] - Family Medicine [facility] [address] [place] [address] Justen Gale MD #[address] [address] Medication Refill Social History Tobacco Use Types [...] Visit [facility] - [place] #[address] [place] [address] Annel Rod MD #2 [facility] [address] [place] [address] 11/13/2024 2:00 PM CDT [facility] [address] [place] [address] Angelito Alegria APRN, SOLE CONDITIONER #2 [facility] [address] [place] [address] Discharge Disposition: Discharged to home or Selfcare documented as of this encounter Visit Diagnoses Not on filedocumented in this encounter Additional Health Concerns Infection Onset Date Last Indicated Resolved Time COVID - 19 08/01/2024 08/01/2024 08/01/2024 3:20 PM CDT Assessment Noted Time PHQ-9 Depression Total Score: 0 07/21/19 21 3:00 PM CDT documented as of this encounter Care Teams Corporate Security Manager Relationship Specialty Start Date End Date Justen Gale MD #2 [facility] [address] [place] [address] PCP - General Family Medicine 10/17/17 David Roberts, FILM INSPECTOR, SOLE CONDITIONER [address] [place] [address] Nurse Practitioner Advanced Practice Nurse 01/31/22 Annel Rod MD #2 [facility] [address] [place] [address] Consulting Physician Endocrinology 07/01/22 documented as of this encounter
--- OUTSIDE RECORDS SUMMARY | 2024-09-27 02:20 | XMS_ITS | Encounter Summary ---
Author Organization [facility] Address [address] [place] [address] Phone Care Team Providers Care Smoking Pipes Cleaner Name Role Phone Justen Gale MD Primary Care Provider [phone] David Roberts APRN, WELDER RAILCAR MECHANIC Unavailable Annel Rod MD Unavailable Reason for Visit * Reason Onset Date Comments Breathing Problem 08/07/2024 Muscle Pain 08/07/2024 Encounter Details Date Type Department Care Team (Late st Contact Info) Description 08/07/2024 Nurse Triage [facility] [address] [place] [address] Justen Gale MD #[address] [address] Breathing Problem; Muscle Pain Social History Tobacco Use Types Packs/Day Years Used Date Smoking Tobacco: Never Smokeless Tobacco: Never Alcohol Use Standard Drinks/Week Comments No 0 (1 standard drink = 0.6 oz pur e alcohol) [facility] Utilities Answer Date Recorded In [...] attend chur ch or latter day services? More than 4 times per year [...] Total Score - Questions 1-9 0 07/23 [facility] of Occupat ional Health - [...] any time in the past 12 m [facility], were you homeless or [...] reports this was discussed with the front office java developer and provider was to be notified in [...] Encouraged caller to bring cell phone and pulley mortiser operator to contact EMS 911 if symptoms worsen [...] (e.g., disoriented, slurred speech) Protocols used: Breathing [id number] * Telephone Encounter - Neha Tomlinson - 08/07/2024 1:30 PM CDT Symptoms: Altered Mental Status, Body Aches, Breathing Trouble Outcome: Warm transfer to an emergent RN NOW! Reason: Trouble walking The caller accepted this outcome. documented in this encounter Plan of Treatment Upcoming Encounters Date Type Department Care Team (Late st Contact Info) Description 10/22/2024 11:15 AM CDT Office Visit [facility] - Endocrinology [facility] #2 [place] [address] Annel Rod MD #2 [facility] [address] [place] [address] 11/13/2024 2:00 PM CDT [facility] 1 [place] [address] Angelito Alegria APRN, WELDER RAILCAR MECHANIC #2 [facility] [address] [place] [address] Discharge Disposition: Discharged to home or Selfcare documented as of this encounter Visit Diagnoses Not on filedocumented in this encounter Additional Health Concerns Assessment Noted Time PHQ-9 Depression Total Score: 0 08/02/19 25 1:09 PM CDT documented as of this encounter Care Teams Smoking Pipes Cleaner Relationship Specialty Start Date End Date Justen Gale MD #2 [facility] [address] [place] [address] PCP - General Family Medicine 10/17/17 David Roberts APRN, NETTA #2 [place] [address] Nurse Practitioner Advanced Practice Nurse 01/31/22 Annel Rod MD #2 [facility] [address] [place] [address] Consulting Physician Endocrinology 07/01/22 documented as of this encounter
--- OUTSIDE RECORDS SUMMARY | 2024-09-27 02:20 | XMS_ITS | Encounter Summary ---
Author Organization [facility] Address [address] [place] [address] Care Team Providers Care Energy Conservation Specialist Name Role Phone Justen Gale MD Primary Care Provider [phone] Encounter Details Date Type Department Care Team (Late st Contact Info) Description 08/14/2024 Results Follow-Up ER at [facility] [address] [place] [address] Josué Bernal, STEPH [address] [place] [address] Social History Tobacco Use Types Packs/Day [...] medical care, and heating? Somewhat hard 05/16/2023 [facility] [place] of Occupat ional Health - Occupational Stress [...] in a fpc (including now)? 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
--- OUTSIDE RECORDS SUMMARY | 2024-09-27 02:20 | XMS_ITS | Encounter Summary ---
Author Organization [facility] Address [address] [place] [address] Phone Care Team Providers Care Director Graphics Name Role Phone Justen Gale MD Primary Care Provider David Roberts APRN, PROCESS CONTROL BOARD OPERATOR Unavailable [phone] Annel Rod MD Unavailable Reason for Visit * Reason Comments Medication Refill Encounter Details Date Type Department Care Team (Late st Contact Info) Description 03/05/2023 [facility]ill [facility] #2 [place] [address] Pili Elkins APRN, PROCESS CONTROL BOARD OPERATOR #[address] [address] Medication Refill Social History Tobacco [...] discontinued on 10/19/2022 by Justen Gale MD TE SENSING TECHNICIAN documented in this encounter Plan of Treatment Upcoming Encounters Date Type Department Care Team (Late st Contact Info) Description 10/22/2024 11:15 AM CDT Office Visit [facility] Endocrinology - [place] #2 [place] [address] Annel Rod MD #2 [facility] [address] [place] [address] 11/13/2024 2:00 PM CDT [facility] 1 [place] [address] Angelito Alegria APRN, PROCESS CONTROL BOARD OPERATOR #2 [facility] [address] [place] [address] Discharge Disposition: Discharged to home or Selfcare documented as of this encounter Visit Diagnoses Diagnosis Essential hypertension Unspecified essential hypertension documented in this encounter Additional Health Concerns Infection Onset Date Last Indicated Resolved Time COVID - 19 08/01/2024 08/01/2024 08/01/2024 3:20 PM CDT Assessment Noted Time PHQ-9 Depression Total Score: 8 01/18/20 2:24 PM CDT documented as of this encounter Care Teams Director Graphics Relationship Specialty Start Date End Date Justen Gale MD #2 [facility] [address] [place] [address] PCP - General Family Medicine 10/17/17 David Roberts APRN, NETTA #2 [place] [address] Nurse Practitioner Advanced Practice Nurse 01/31/22 Annel Rod MD #2 [facility] [address] [place] [address] Consulting Physician Endocrinology 07/01/22 documented as of this encounter
--- OUTSIDE RECORDS SUMMARY | 2024-09-27 02:20 | XMS_ITS | Encounter Summary ---
Author Organization [facility] Address [address] [place] [address] Phone Care Team Providers Care Stump Blower Name Role Phone Justen Gale MD Primary Care Provider David Roberts APRN, ACCOUNTANT COST Unavailable [phone] Annel Rod MD Unavailable Reason for Visit * Reason Comments Medication Refill Encounter Details Date Type Department Care Team (Late st Contact Info) Description 08/30/2022 Refill [facility] #2 [place] [address] Justen Gale MD #[address] [address] Medication Refill Social History Tobacco Use Types [...] [place] 05/02/22 Office Visit [facility] [place] 03/03/22 Office Visit Pili Elkins APRN, NETTA [facility] [place] 01/03/22 Office Visit Dannielle Berg PAC [facility] [place] 12/07/21 Office Visit Pili Elkins APRN, NETTA [facility] [place] 11/09/21 Office Visit Plii Elkins APRN, NETTA [facility] [place] 10/08/21 Office Visit Angelito Alegria APRN, NETTA [facility] [place] 08/30/21 [facility] within past 365 [...] Visit [facility] - [place] #2 [place] [address] Annel Rod MD #[address] [address] 11/13/2024 2:00 PM CDT [facility] Cardiology Services 1 [place] [address] Angelito Alegria, SEWAGE DISPOSAL ENGINEER, ACCOUNTANT COST #[address] [address] Discharge Disposition: Discharged to home or Selfcare documented as of this encounter Visit Diagnoses Not on filedocumented in this encounter Additional Health Concerns Infection Onset Date Last Indicated Resolved Time COVID - 19 08/01/2024 08/01/2024 08/01/2024 3:20 PM CDT Assessment Noted Time PHQ-9 Depression Total Score: 0 07/21/19 3:00 PM CDT documented as of this encounter Care Teams Stump Blower Relationship Specialty Start Date End Date Justen Gale MD #[address] [address] PCP - General Family Medicine 10/17/17 David Roberts, SEWAGE DISPOSAL ENGINEER, ACCOUNTANT COST #2 [place] [address] Nurse Practitioner Advanced Practice Nurse 01/31/22 Annel Rod MD #[address] [address] Consulting Physician Endocrinology 07/01/22 documented as of this encounter
--- OUTSIDE RECORDS SUMMARY | 2024-09-27 02:20 | XMS_ITS | Clinical Summary ---
Author Organization [facility] Address [address] [place] [address] Phone Care Team Providers Care Photoengraving Retoucher Name Role Phone Justen Gale MD Primary Care Provider Allergies [...] - 6.0 % 09/29/2017 10:28 AM CDT [employer] [facility] EST. AVG GLUCOSE, A1C 186 mg/dL 09/29/2017 10:28 AM CDT [place] [employer] [facility] Blood Venipuncture / Unknown 09/28/2017 8:41 PM CDT 09/28/2017 8:46 PM CDT Narrative [facility] - 09/29/2017 10:28 AM CDT HGB A1C INTERPRETATION NORMAL: <5.7% PRE-DIABETES: 5.7 - 6.4% DIABETES: 6.5% OR GREATER us Francisco Castaneda MD CHEMISTRY ORDERABLES Final Resul t [facility] [employer] [facility]# [id number] [address] [facility] [place] [address] * (ABNORMAL) LIPID PANEL (09/28/2017 8:41 PM CDT) CHOLESTEROL 174 <200 mg/dL 09/30/2017 2:45 AM CDT [facility] [employer] [facility] TRIGLYCERIDE 109 <150 mg/dL 09/30/2017 2:45 AM CDT [facility] [employer] [facility] HDL 45 40 - 59 mg/dL 09/30/2017 2:45 AM CDT [facility] [employer] [facility] LDL CALCULATED 107(H) <100 mg/dL 09/30/2017 2:45 AM CDT [facility] [employer] [facility] NON-HDL CHOLESTEROL 129 <130 mg/dL 09/30/2017 2:45 AM CDT [facility] [employer] [facility] Blood Venipuncture / Unknown 09/28/2017 8:41 PM CDT 09/28/2017 8:[address] [facility] - 09/30/2017 2:45 AM CDT TOTAL [...] Castaneda MD CHEMISTRY ORDERABLES Final Resul t [facility] [employer] [facility]# [id number] 5 [address] [address] from Last 3 Months or Most Recently Relevant to Health Maintenance Insurance Advance Directives For more information, please contact: [phone] * Full Code (Latest Code Status on File) Date Activated Date Inactivated Comments 09/29/2017 7:45 AM 09/30/2017 9:14 PM * Full Code Date Activated Date Inactivated Comments 09/29/2017 1:25 AM 09/29/2017 7:45 AM Care Teams Photoengraving Retoucher Relationship Specialty Start Date End Date Justen Gale MD [address] [facility] [address] [place] [address] PCP - General Cardiovascular Disease 09/14/17
--- OUTSIDE RECORDS SUMMARY | 2024-09-27 02:20 | XMS_ITS | Encounter Summary ---
Author Organization [facility] Address [address] [place] [address] Phone Care Team Providers Care Ballet Dancer Name Role Phone Justen Gale MD Primary Care Provider David Roberts APRN, WOODWORKING SHOP LABORER Unavailable [phone] Annel Rod MD Unavailable Reason for Visit * Reason Comments Medication Refill Encounter Details Date Type Department Care Team (Late st Contact Info) Description 07/12/2022 Refill [facility] #2 [place] [address] Justen Gale MD #[address] [address] Medication Refill Social History Tobacco Use Types [...] 07/05/22 Office Visit Pili Elkins APRN, NETTA [facility] [place] 05/02/22 Office Visit Justen Gale MD [facility] [place] 03/03/22 Office Visit Pili Elkins APRN, WOODWORKING SHOP LABORER [facility] [place] 01/03/22 Office Visit Dannielle Berg PAC [facility] [place] 12/07/21 Office Visit Pili Elkins APRN, NETTA [facility] [place] 11/09/21 Office Visit Pili Elkins APRN, NETTA [facility] [place] 10/08/21 Office Visit Angelito Alegria APRN, NETTA [facility] [place] 08/30/21 Office Visit [facility] Show[facility] visits within past 365 days [...] Endocrinology [facility] #2 [place] [address] Annel oRd MD #[address] [address] 11/13/2024 2:00 PM CDT [facility] 1 [place] [address] Angelito Alegria APRN, WOODWORKING SHOP LABORER #[address] [address] Discharge Disposition: Discharged to home or Selfcare documented as of this encounter Visit Diagnoses Not on filedocumented in this encounter Additional Health Concerns Infection Onset Date Last Indicated Resolved Time COVID - 19 08/01/2024 08/01/2024 08/01/2024 3:20 PM CDT Assessment Noted Time PHQ-9 Depression Total Score: 0 07/21/19 3:00 PM CDT documented as of this encounter Care Teams Ballet Dancer Relationship Specialty Start Date End Date Justen Gale MD #[address] [address] PCP - General Family Medicine 10/17/17 David Roberts APRN, WOODWORKING SHOP LABORER #2 [place] [address] Nurse Practitioner Advanced Practice Nurse 01/31/22 Annel Rod MD #[address] [address] Consulting Physician Endocrinology 07/01/22 documented as of this encounter
--- OUTSIDE RECORDS SUMMARY | 2024-09-27 02:20 | XMS_ITS | Encounter Summary ---
Author Organization [facility] Address [address] [place] [address] Phone Care Team Providers Care Director Cloud Transformation Name Role Phone Liu Jerez MD Unavailable Albert Corbin MD Unavailable [phone] Justen Gale MD Primary Care Provider Khris Arthur MD Unavailable [phone] Ko Melendez MD Unavailable John Paul Moyer MD Unavailable Annel Rod MD Unavailable Anali MARSHALL MD, Carlos M. Unavailable [phone] Encounter Details Date Type Department Care Team [...] file Legal Sex Female 12:24 AM SENIOR JAVA DEVELOPER Gender Identity Not on file Sexual [...] COVID: Recovered 02/10/2022 02/10/2022 06/10/2022 3:05 AM SENIOR JAVA DEVELOPER Exposure, COVID-19 Comment:Added automatically based on COVID19 lab answers indicating exposure risk 02/11/2022 02/11/2022 02/15/2022 9:06 AM C DT COVID: Suspected 05/14/2022 05/14/2022 05/14/2022 10:41 AM SENIOR JAVA DEVELOPER COVID: Suspected 06/07/2022 06/07/2022 06/07/2022 12:28 PM SENIOR JAVA DEVELOPER COVID: Suspected 06/21/2022 06/21/2022 06/21/2022 2:12 AM SENIOR JAVA DEVELOPER COVID: Suspected 10/05/2022 10/05/2022 10/05/2022 7:40 PM CDT COVID: Suspected 01/04/2024 01/04/2024 01/04/2024 10:30 PM CDT COVID: Suspected 02/14/2024 02/14/2024 02/15/2024 12:36 AM CDT COVID: Suspected 07/01/2024 07/01/2024 07/01/2024 2:53 PM CDT COVID: Suspected 07/01/2024 07/01/2024 07/02/2024 3:05 AM CDT documented as of this encounter Care Teams Director Cloud Transformation Relationship Specialty Start Date End Date Justen Gale MD 2 [facility] [address] [place] [address] PCP - General 10/09/17 Liu Jerez MD Consulting Physician Gastroenterology 07/28/17 [place] [address] [facility] [address] [place] [address] Consulting Physician Pulmonary Disease 08/03/17 [place] [address] [place] [address] [place] [address] Medical Oncologist/Dry Kiln Loader Medical Oncology 10/23/17 [place] [address] [address] Surgeon Orthopedic Surgery 10/23/17 [place] [address] [facility] [address] [place] [address] Consulting Physician Pain Management 10/23/17 [place] [address] [address] Referring Physician General Surgery 01/26/18 [place] [address] [facility] [address] [place] [address] Consulting Physician Neurology 01/26/18 documented as of this encounter
--- OUTSIDE RECORDS SUMMARY | 2024-09-27 02:20 | XMS_ITS | Encounter Summary ---
Author Organization [facility] Address [address] [place] [address] Phone Care Team Providers Care Manager Wound Care Name Role Phone Justen Gale MD Primary Care Provider David Roberts APRN, DATA INTEGRATION DEVELOPER Unavailable [phone] Annel Rod MD Unavailable Reason for Visit * Reason Comments Medication Refill Encounter Details Date Type Department Care Team (Late st Contact Info) Description 04/13/2023 Refill [facility] Endocr[facility]ology - [place] #2 [place] [address] Annel Rod MD #[address] [address] Medication Refill Social History [...] Jennifer Wang, RN - 04/14/2023 10:00 AM SYSTEMS SECURITY CONSULTANT Requested Prescriptions Pending Prescriptions Disp Refills ??? Continuous Blood Gluc Sensor (FreeStyle Eileen 2 Sensor) Misc [Pharmacy Med Name: FREESTYLE EILEEN 2 SENSOR] 6 Each 1 Sig: APPLY 1 SENSOR AND WEAR FOR 14 DAYS TO CHECK BLOOD SUGAR Next appt: 05/30/2023 EMS SECURITY CONSULTANT documented in this encounter Plan of Treatment Upcoming Encounters Date Type Department Care Team (Late st Contact Info) Description 10/22/2024 11:15 AM CDT Office Visit [facility] Endocrinology - [place] #2 [place] [address] Annel Rod MD #2 [facility] [address] [place] [address] 11/13/2024 2:00 PM CDT [facility] 1 [place] [address] Angelito Alegria, ZAMZAM, DATA INTEGRATION DEVELOPER #2 [facility] [address] [place] [address] Discharge Disposition: Discharged to home or Selfcare documented as of this encounter Visit Diagnoses Not on filedocumented in this encounter Additional Health Concerns Infection Onset Date Last Indicated Resolved Time COVID - 19 08/01/2024 08/01/2024 08/01/2024 3:20 PM CDT Assessment Noted Time PHQ-9 Depression Total Score: 8 01/18/20 2:24 PM CDT documented as of this encounter Care Teams Manager Wound Care Relationship Specialty Start Date End Date Justen Gale MD #2 [facility] [address] [place] [address] PCP - General Family Medicine 10/17/17 David Roberts APRN, DATA INTEGRATION DEVELOPER #2 [place] [address] Nurse Practitioner Advanced Practice Nurse 01/31/22 Annel Rod MD #[address] [address] Consulting Physician Endocrinology 07/01/22 documented as of this encounter
--- OUTSIDE RECORDS SUMMARY | 2024-09-27 02:20 | XMS_ITS | Encounter Summary ---
Author Organization [facility] Address [address] [place] [address] Phone Care Team Providers Care Econometrician Name Role Phone Justen Gale MD Primary Care Provider David Roberts APRN, COMMERCIAL FRONT LOAD DRIVER Unavailable Annel Rod MD Unavailable Reason for Visit * Reason Comments Medication Refill Encounter Details Date Type Department Care Team (Late st Contact Info) Description 07/06/2023 Refill [facility] - Family [facility] #2 [place] [address] Justen Gale MD #[address] [address] Medication Refill Social History Tobacco Use Types [...] Dept 06/27/23 Office Visit Justen Gale MD [facility] [place] 01/17/23 Office Visit Catrina Quiñonez MD [facility] [place] Showing recent visits within past [...] Description 10/22/2024 11:15 AM CDT Office Visit [facility] Medical Group - Endocrinology - [place] #[address] [place] [address] Annel Rod MD #[address] [facility] [address] [place] [address] 11/13/2024 2:00 PM CDT Appointment [facility] Cardiology Services 1 [place] [address] Angelito Alegria, WINDSHIELD REPAIR TECHNICIAN, COMMERCIAL FRONT LOAD DRIVER #2 [facility] [address] [place] [address] Discharge Disposition: Discharged to home or Selfcare documented as of this encounter Visit Diagnoses Not on filedocumented in this encounter Additional Health Concerns Infection Onset Date Last Indicated Resolved Time COVID - 19 08/01/2024 08/01/2024 08/01/2024 3:20 PM CDT Assessment Noted Time PHQ-9 Depression Total Score: 8 01/18/20 23 2:24 PM CDT documented as of this encounter Care Teams Econometrician Relationship Specialty Start Date End Date Justen Gale MD #[address] [address] PCP - General Family Medicine 10/17/17 David Roberts APRN, COMMERCIAL FRONT LOAD DRIVER #2 [place] [address] Nurse Practitioner Advanced Practice Nurse 01/31/22 Annel Rod MD #[address] [address] Consulting Physician Endocrinology 07/01/22 documented as of this encounter
--- OUTSIDE RECORDS SUMMARY | 2024-09-27 02:20 | XMS_ITS | Encounter Summary ---
Author Organization [facility] Address [address] [place] [address] Phone Care Team Providers Care Ios Developer Name Role Phone Justen Gale MD Primary Care Provider David Roberts APRN, CIGAR HEAD PUNCHER Unavailable Annel Rod MD Unavailable Reason for Visit * Reason Comments Medication Refill Encounter Details Date Type Department Care Team (Late st Contact Info) Description 02/07/2023 Refill [facility] - Family Medicine [facility] #2 [place] [address] Catrina Quiñonez MD #2 [place] [address] Medication Refill Social History Tobacco Use Types [...] Office Visit Pili Elkins APRN, NETTA [facility] [place] Showing recent visits within past [...] Visit [facility] Endocrinology - [place] #2 [place] [address] Annel Rod MD #[address] [address] 11/13/2024 2:00 PM CDT Appointment [facility] Cardiology Services [address] [place] [address] Angelito Alegria, METAL SHAPING MACHINE OPERATOR, CIGAR HEAD PUNCHER #[address] [address] Discharge Disposition: Discharged to home or Selfcare documented as of this encounter Visit Diagnoses Not on filedocumented in this encounter Additional Health Concerns Infection Onset Date Last Indicated Resolved Time COVID - 19 08/01/2024 08/01/2024 08/01/2024 3:20 PM CDT Assessment Noted Time PHQ-9 Depression Total Score: 8 01/18/20 2:24 PM CDT documented as of this encounter Care Teams Ios Developer Relationship Specialty Start Date End Date Justen Gale MD #[address] [address] PCP - General Family Medicine 10/17/17 David Roberts METAL SHAPING MACHINE OPERATOR, CIGAR HEAD PUNCHER #2 [place] [address] Nurse Practitioner Advanced Practice Nurse 01/31/22 Annel Rod MD #[address] [address] Consulting Physician Endocrinology 07/01/22 documented as of this encounter
--- OUTSIDE RECORDS SUMMARY | 2024-09-27 02:20 | XMS_ITS | Encounter Summary ---
Author Organization [facility] Address [address] [place] [address] Phone Care Team Providers Care Hydroelectric Production Technician Name Role Phone Justen Gale MD Primary Care Provider David Roberts APRN, BRAZING MACHINE OPERATOR Unavailable Annel Rod MD Unavailable Reason for Visit * Reason Comments Medication Refill Encounter Details Date Type Department Care Team (Late st Contact Info) Description 10/24/2022 Refill [facility] - Family Medicine [facility] [address] [place] [address] Pili Elkins APRN, BRAZING MACHINE OPERATOR #[address] [address] Medication Refill Social History Tobacco [...] Group - Endocrinology [facility] [address] [place] [address] Annel Rod MD #[address] [address] 11/13/2024 2:00 PM CDT [facility] [address] [place] [address] Angelito Alegria, ELEMENTARY SCHOOL TUTOR, BRAZING MACHINE OPERATOR #[address] [facility] [address] [place] [address] Discharge Disposition: Discharged to home or Selfcare documented as of this encounter Visit Diagnoses Diagnosis Essential hypertension Unspecified essential hypertension documented in this encounter Additional Health Concerns Infection Onset Date Last Indicated Resolved Time COVID - 19 08/01/2024 08/01/2024 08/01/2024 3:20 PM CDT Assessment Noted Time PHQ-9 Depression Total Score: 0 09/17/19 11:00 AM CDT documented as of this encounter Care Teams Hydroelectric Production Technician Relationship Specialty Start Date End Date Justen Gale MD #[address] [address] PCP - General Family Medicine 10/17/17 David Roberts ELEMENTARY SCHOOL TUTOR, BRAZING MACHINE OPERATOR [address] [place] [address] Nurse Practitioner Advanced Practice Nurse 01/31/22 Annel Rod MD #[address] [address] Consulting Physician Endocrinology 07/01/22 documented as of this encounter
--- OUTSIDE RECORDS SUMMARY | 2024-09-27 02:20 | XMS_ITS | Encounter Summary ---
Author Organization [facility] Address [address] [place] [address] Phone Care Team Providers Care Dental Assistant Medical Assistant Name Role Phone Justen Gale MD Primary Care Provider David Roberts APRN, ELECTROMAGNET CRANE OPERATOR Unavailable [phone] Annel Rod MD Unavailable Reason for Visit * Reason Comments Medication Refill Encounter Details Date Type Department Care Team (Late st Contact Info) Description 09/30/2023 Refill [facility] - Endocr[facility]ology - [place] [address] [place] [address] Annel Rod MD #[address] [address] Medication Refill Social History [...] 10/22/2024 11:15 AM CDT Office Visit [facility] - Endocrinology [facility] [address] [place] [address] Annel Rod MD #[address] [address] 11/13/2024 2:00 PM CDT [facility] [address] [place] [address] Angelito Alegria APRN, NETTA #[address] [address] Discharge Disposition: Discharged to home or Selfcare documented as of this encounter Visit Diagnoses Not on filedocumented in this encounter Additional Health Concerns Infection Onset Date Last Indicated Resolved Time COVID - 19 08/01/2024 08/01/2024 08/01/2024 3:20 PM CDT Assessment Noted Time PHQ-9 Depression Total Score: 8 01/18/20 2:24 PM CDT documented as of this encounter Care Teams Dental Assistant Medical Assistant Relationship Specialty Start Date End Date Justen Gale MD #[address] [place] [address] PCP - General Family Medicine 10/17/17 David Roberts APRN, ELECTROMAGNET CRANE OPERATOR [address] [place] [address] Nurse Practitioner Advanced Practice Nurse 01/31/22 Annel Rod MD #[address] [address] Consulting Physician Endocrinology 07/01/22 documented as of this encounter
--- OUTSIDE RECORDS SUMMARY | 2024-09-27 02:20 | XMS_ITS | Clinical Summary ---
Author Organization [facility] Address [address] [place] [address] Phone Care Team Providers Care Wagon Driver Name Role Phone Justen Gale MD Primary Care Provider [phone] David Roberts APRN, SCHOOL BOAT DRIVER Unavailable Annel Rod MD Unavailable Allergies Active Allergy [...] Blood Gluc Sensor (FreeStyle Eileen 2 Sensor) [facility] APPLY 1 SENSOR [...] taking until cleared by PCP office or emergency preparedness coordinator. Will need to taper off slowly. Indications: [...] taking until cleared by PCP office or emergency preparedness coordinator. Will need to taper off slowly. Indications: Polymyalgia Rheumatica 30 Tablet 08/10/19 25 025 Discontinu ed(Reorder ) furosemide (LASIX) 20 MG TabletIndicatio ns:Edema Take [...] Overview: Added automatically from request for surgery [id number] Lymphedema of left upper extremity 08/09/2016 Pulmonary embolism 08/09/2016 Overview (11/09/2017): Last Assessment & Plan: On Rivaroxaban Arthralgia of ankle 01/26/2015 Cellulitis of breast 11/11/2014 Encounters Date Type Department Care Team Description 09/23/2024 Nurse Triage [facility] [address] [place] [address] Justen Gale MD Breathing Problem; Pain 09/23/2024 Telephone [facility] [address] [place] [phone] Justen Gale MD Pain 09/11/2024 Telephone [facility] [address] [place] [phone] Justen Gale MD Follow-up 09/06/2024 1:15 PM CDT Office Visit [facility] [address] [place] [address] Dulce Wolff, CERT OCCUPATIONAL THERAPY ASST, SCHOOL BOAT DRIVER Enlarged tonsils (Primary Dx); Polymyalgia rheumatica (HCC); Oral candidiasis; Edema, unspecified type Discharge Disposition: Discharged to home or Selfcare 09/06/2024 Travel 09/03/2024 Telephone [facility] [address] [place] [address] Justen Gale MD Follow-up 09/02/2024 [facility] [address] [place] [phone] Justen Gale MD Sore Throat 08/20/2024 1:15 PM CDT Office Visit [facility] [address] [place] [address] Justen Gale MD Acute maxillary sinusitis, recurrence not specified (Primary Dx) Discharge Disposition: Discharged to home or Selfcare 08/20/2024 Travel 08/19/2024 Telephone [facility] [address] [place] [address] Justen Gale MD Advice Only; Follow-up 08/14/2024 Telephone [facility] Endocrinology [facility] [address] [place] [phone] Annel Rod MD High Blood Sugar 08/13/2024 [facility] [address] [place] [phone] Justen Gale MD High Blood Sugar 08/07/2024 9:20 AM CDT Lab [facility] [address] [address] [facility]Ancillary Body aches; Diffuse arthralgia Discharge Disposition: Discharged to home or Selfcare 08/07/2024 8:30 AM CDT Office Visit [facility] [address] [place] [phone] Angelito Alegria APRN, CNP Diffuse arthralgia (Primary Dx); Dyspnea on exertion; Type 2 diabetes mellitus with diabetic polyneuropathy, with long-term current use of insulin (HCC) Discharge Disposition: Discharged to home or Selfcare 08/07/2024 Results Follow-Up [facility] [address] [place] [address] Angelito Alegria APRN, CNP CREATINE KINASE (CK) TOTAL, ERYTHROCYTE SEDIMENTATION RATE (ESR), C-REACTIVE PROTEIN (CRP) QUANT 08/07/2024 Nurse Triage [facility] [address] [place] [phone] Justen Gale MD Breathing Problem; Muscle Pain 08/06/2024 Travel 08/05/2024 MyChart RX Renewal [facility] Endocrinology [facility] [address] [place] [phone] Annel Rod MD Medication Renewal Reviewed 08/05/2024 Nurse Triage [facility] [address] [place] [phone] Justen Gale MD Muscle Pain; Follow-up 08/03/2024 3:36 AM CDT - 08/03/2024 7:05 AM CDT Emergency [facility] Emergency [address] [place] [phone] Sergio Rivera MD Myalgia Discharge Disposition: Discharged to home or Selfcare 08/02/2024 Travel 08/02/2024 Nurse Triage [facility] [address] [place] [phone] Justen Gale MD Hemoptysis 08/02/2024 [facility] [address] [place] [phone] Justen Gale MD Results 08/02/2024 Telephone [facility] [place] [phone] Angelito Alegria APRN, SCHOOL BOAT DRIVER Results 08/02/2024 MyChart [facility] [place] [facility] [place] [phone] Annel Rod MD Medication Renewal Reviewed 08/01/2024 2:13 PM CDT - 08/01/2024 4:16 PM CDT Emergency [facility] Emergency [address] [place] [phone] Jack Leiva MD Dyspnea on exertion Discharge Disposition: Discharged to home or Selfcare 08/01/2024 1:15 PM CDT Office Visit [facility] [address] [place] [phone] Angelito Alegria, ZAMZAM, SCHOOL BOAT DRIVER Body aches (Primary Dx) Discharge Disposition: Discharged to home or Selfcare 08/01/2024 Travel 08/01/2024 Nurse Triage [facility] [address] [place] [phone] Justen Gale MD Pain 07/22/2024 Telephone [facility] [address] [place] [phone] Justen Gale MD Appointment 07/11/2024 [facility] [address] [place] [phone] Justen Gale MD Toe Problem from Last 3 Months Immunizations Immunization Administration Dates Next Due Covid-19 Vaccine, Vector-nr, Rs-ad26, Pf, 0.5 Ml ([employer]) 06/29/2020 Influenza Vaccine greater than 3 yrs [...] 0.6 oz pur e alcohol) [facility] Tvoopities Answer Date Recorded In the past 12 months has official[employer]fm, [employer], oil, or water [employer] threatened to shut off services in your [...] How often do you attend chur or zoroastrianism services? More than 4 times per year 08/06/2024 Do you belong to any clubs o r organizations such as yazidism groups, unions, fraternal or athletic groups, or [...] Total Score - Questions 1-9 0 07/23 [facility] [place] [facility] - Occupational Stress Questionnaire Answer Date [...] any time in the past 12 m [facility], were you homeless or living in a [place] health care facility (including now)? No 08/06/2024 Education Answer Date [...] Visit [facility] [place] [address] [place] [phone] Annel Rod MD #2 [facility] [address] [place] [address] 11/13/2024 2:00 PM CDT Appointment [facility] [address] [place] [address] Angelito Alegria, CERT OCCUPATIONAL THERAPY ASST, SCHOOL BOAT DRIVER #2 [facility] [address] [place] [address] Discharge Disposition: Discharged to home or Selfcare [...] screening for human papillomavirus (HPV) PATHOLOGY CYTOLOGY ASTRO TECHNICIAN Routine 07/05/2022 2:24 PM CDT Encounter [...] CONSULT F inal Result Performing Organization Address [facility] Co de Phone Number SCAN * CT - HEAD/NECK (08/13/2024 12:00 AM CDT) 08/13/[address] ORDERABLES Final Result Performing Organization Address [facility] de Phone Number SCAN * (ABNORMAL) ERYTHROCYTE SEDIMENTATION RATE (ESR) (08/07/2024 8:59 AM CDT) Only the most recent of2 resultswithin the time period is included. ESR (SED RATE, ERYTHROCYTE SEDIMENTATION RATE) 52(H) <30 mm/h 08/07/2024 12:34 PM CDT [facility] Comment: Patients presenting with increased level of fibrinogen, gamma globulins, or abnormally shaped RBCs could affect the results for the erythrocyte sedimentation rate (ESR). Results should be clinically correlated. Blood Venipuncture / Unknown 08/07/2024 8:59 AM CDT 08/07/2024 8:59 AM CDT Angelito Alegria CERT OCCUPATIONAL THERAPY ASST, SCHOOL BOAT DRIVER HEMATOLOGY ORDER CHAPARRO Final Result Performing Organization Address [facility] de Phone Number [facility] [place] [address] * CREATINE KINASE (CK) TOTAL (08/07/2024 8:59 AM CDT) Only the most recent of2 resultswithin the time period is included. CK (CPK) 151 29 - 168 U/L 08/07/2024 1:08 PM CDT [facility] Blood Venipuncture / Unknown 08/07/2024 8:59 AM CDT 08/07/2024 8:59 AM CDT Angelito Alegria APRN, CNP HEMATOLOGY ORDER CHAPARRO Final Result Performing Organization Address City/[facility] Co de Phone Number [facility] [address] [place] [address] * (ABNORMAL) C-REACTIVE PROTEIN (CRP) QUANT (08/07/2024 8:59 AM CDT) Only the most recent of2 resultswithin the time period is included. C-REACTIVE PROTEIN 1.21(H) <0.50 mg/dL 08/07/2024 12:54 PM CDT [facility] Blood Venipuncture / Unknown 08/07/2024 8:59 AM CDT 08/07/2024 8:59 AM CDT Angelito Alegria APRN, CNP CHEMISTRY ORDERA BLES Final Result Performing Organization Address City/[facility] Co de Phone Number [facility] [address] [place] [address] * (ABNORMAL) POCT GLUCOSE (08/07/2024 8:31 AM [...] signed by Sen DENSON: JANIYA Report ID: [id number] Reading Location: [id number] Procedure Note Dillon Sy MD - 08/03/2024 [...] Sen Sy M.D. JANIYA: JANIYA Report ID: [id number] Reading Location: [id number] IMPRESSION: Negative right hip. Sergio Rivera MD [...] signed by Patrick STOCKTON: KATH Report ID: [id number] Reading Location: [id number] Procedure Note Patrick Zhou MD - 08/03/2024 [...] signed by Patrick STOCKTON: KATH Report ID: [id number] Reading Location: [id number] IMPRESSION: Mild bilateral infiltrates are suspected superimposed on chronic lung changes. Sergio Rivera MD IMG DIAGNOSTIC ORDERABLES Final Result * CBC with Auto Differential (08/02/2024 11:21 PM CDT) Only the most recent of2 resultswithin the time period is included. WBC 9.26 4.00 - 12.00 10(3)/mcL 08/03/2024 12:08 AM CDT [facility] RBC 4.62 3.80 - 5.30 10(6)/mcL 08/03/2024 12:08 AM CDT [facility] HEMOGLOBIN (HGB) 13.5 12.0 - 15.8 g/dL 08/03/2024 12:08 AM CDT [facility] HEMATOCRIT (HCT) 42.9 36.0 - 47.0 % 08/03/2024 12:08 AM CDT [facility] MCV 92.9 82.0 - 96.0 fL 08/03/2024 12:08 AM CDT [facility] MCH 29.2 26.0 - 34.0 pg 08/03/2024 12:08 AM CDT [facility] MCHC 31.5 31.0 - 36.0 g/dL 08/03/2024 12:08 AM CDT [facility] PLATELET COUNT 272 140 - 440 10(3)/mcL 08/03/2024 12:08 AM CDT [facility] RDW 12.8 11.8 - 15.5 % 08/03/2024 12:08 AM CDT [facility] MPV 10.2 9.7 - 12.4 fL 08/03/2024 12:08 AM CDT [facility] NEUTROPHILS 62.5 47.0 - 73.0 % 08/03/2024 12:08 AM CDT [facility] LYMPHOCYTES 27.1 18.0 - 42.0 % 08/03/2024 12:08 AM CDT [facility] MONOCYTES 7.1 4.0 - 12.0 % 08/03/2024 12:08 AM CDT [facility] EOSINOPHILS 3.0 0.0 - 5.0 % 08/03/2024 12:08 AM CDT [facility] BASOPHILS 0.3 0.0 - 1.0 % 08/03/2024 12:08 AM CDT [facility] ABSOLUTE NEUTROPHILS 5.78 1.60 - 7.70 10(3)/mcL 08/03/2024 12:08 AM CDT [facility] ABSOLUTE LYMPHOCYTES 2.51 1.30 - 3.20 10(3)/[facility] 08/03/2024 12:08 AM CDT [facility] ABSOLUTE MONOCYTES 0.66 0.20 - 1.00 10(3)/[facility] 08/03/2024 12:08 AM CDT [facility] ABSOLUTE EOSINOPHIL 0.28 0.00 - 0.40 10(3)/[facility] 08/03/2024 12:08 AM CDT [facility] ABSOLUTE BASOPHILS 0.03 0.00 - 0.10 10(3)/[facility] 08/03/2024 12:08 AM CDT [facility] NRBC PER 100 WBC 0 08/04/19 25 12:08 AM CDT [facility] Blood Venipuncture / Unknown 08/02/2024 11:21 PM CDT 08/03/2024 12:05 AM CDT us Sergio Rivera MD HEMATOLOGY ORDERABLES Final Resu lt [facility] [address] [place] [address] * (ABNORMAL) CMP (Comprehensive Metabolic Panel) (08/02/2024 11:21 PM CDT) Only the most recent of2 resultswithin the time period is included. SODIUM 138 136 - 145 mmol/L 08/03/2024 12:29 AM CDT [facility] POTASSIUM 4.4 3.5 - 5.1 mmol/L 08/03/2024 12:29 AM T [facility] CHLORIDE 104 98 - 107 mmol/L 08/03/2024 12:29 AM [facility] CO2, VENOUS 26 22 - 30 mmol/L 08/03/2024 12:29 AM [facility] ANION GAP 12.4 <18.0 mmol/L 08/03/2024 12:29 AM T [facility] GLUCOSE 353(H) 70 - 99 mg/dL 08/03/2024 12:29 AM T [facility] BUN 18 10 - 20 mg/dL 08/03/2024 12:29 AM [facility] CREATININE, BLOOD 0.80 0.60 - 1.00 mg/dL 08/03/2024 12:29 AM [facility] BUN/CREATININE RATIO 23(H) 12 - 20 ratio 08/03/2024 12:29 AM [facility] TOTAL PROTEIN 8.4(H) 6.0 - 8.0 g/dL 08/03/2024 12:29 AM [facility] ALBUMIN 3.8 3.5 - 5.0 g/dL 08/03/2024 12:29 AM [facility] A/G RATIO 0.8(L) 1.0 - 2.2 08/03/2024 12:29 AM [facility] CALCIUM 10.0 8.7 - 10.5 mg/dL 08/03/2024 12:29 AM T [facility] T BILI 0.4 0.2 - 1.2 mg/dL 08/03/2024 12:29 AM [facility] SGOT (AST) 23 <43 U/L 08/03/2024 12:29 AM T [facility] SGPT (ALT) 22 <56 U/L 08/03/2024 12:29 AM T [facility] ALKALINE PHOSPHATASE 67 40 - 150 U/L 08/03/2024 12:29 AM CDT [facility] GFR, ESTIMATED >60 >=60 08/03/2024 12:29 AM CDT [facility] Comment: Creatinine Clearance is the preferred criteria for selecting drug dose adjustments in renally impaired patients. The GFR is provided as additional pertinent clinical information. GFR is reported in mL/min/1.73 sq m. Calculation based on the Chronic Kidney Disease Epidemiology Collaboration (CKD- EPI) equation refit without adjustment for race. GFR, EST. >60 >=60 025 12:29 AM CDT [facility] GFR, EST. NONAFRICAN >60 >=60 08/03/2024 12:29 AM CDT [facility] Blood Venipuncture / Unknown 08/02/2024 11:21 PM CDT 08/03/2024 12:05 AM CDT us Sergio Rivera MD CHEMISTRY ORDERABLES Final Resul t Performing Organization Address City/[facility]/ZIP Co de Phone Number [facility] [address] [place] [address] * TROPONIN I, HIGH SENSITIVITY (HSTRP) (08/01/2024 2:48 PM CDT) Pathologist [facility] TROPONIN I, HIGH SENSITIVITY- [place] 4 <=14 ng/L 08/01/2024 3:45 PM CDT [facility] Comment: High-sensitivity troponin I results are reported in ng/L making the result appear to be 1,000 times higher than the contemporary troponin I value which is reported in ng/ml. Results from [place]. Blood Venipuncture / Unknown 08/01/2024 2:48 PM CDT 08/01/2024 3:08 PM CDT us Jack Leiva MD CHEMISTRY ORDERABLES Deann l Result Performing Organization Address City/[facility]/ZIP Co de Phone Number [facility] [address] [place] [address] * Gold Top Tube (08/01/2024 2:48 PM CDT) Blood No Phlebotomy Charged / Unknown 08/01/2024 2:48 PM CDT 08/01/2024 3:12 PM CDT Jack Leiva MD CHEMISTRY ORDERABLES Deann l Result Performing Organization Address City/[facility]/ZIP Co de Phone Number [facility] [address] [place] [address] * Blue Top Tube (08/01/2024 2:48 PM CDT) Blood No Phlebotomy Charged / Unknown 08/01/2024 2:48 PM CDT 08/01/2024 3:12 PM CDT Jack Leiva MD HEMATOLOGY ORDERABLES Fin al Result Performing Organization Address [facility] Co de Phone Number [facility] [address] [place] [address] * Magnesium (08/01/2024 2:48 PM CDT) Pathologist [facility] MAGNESIUM 1.6 1.6 - 2.6 mg/dL 08/01/2024 3:39 PM CDT [facility] Blood Venipuncture / Unknown 08/01/2024 2:48 PM CDT 08/01/2024 3:08 PM CDT Jack Leiva MD CHEMISTRY ORDERABLES Deann l Result Performing Organization Address City/[facility] Co de Phone Number [facility] [address] [place] [address] * B-Type Natriuretic Peptide (BNP) (08/01/2024 2:48 PM CDT) B TYPE NATRIURETIC PEPTIDE 23 <100 pg/mL 08/01/2024 3:37 PM CDT [facility] Blood Venipuncture / Unknown 08/01/2024 2:48 PM CDT 08/01/2024 3:08 PM CDT us Jack Leiva MD CHEMISTRY ORDERABLES Deann l Result Performing Organization Address City/[facility] Co de Phone Number [facility] [address] [place] [address] * EKG 12 LEAD (08/01/2024 2:41 PM CDT) Ventricular Rate 75 BPM EXTERNAL EKG Atrial Rate 75 BPM EXTERNAL EKG P-R Interval 134 ms EXTERNAL EKG QRS Duration 82 ms EXTERNAL EKG Q-T Duration 380 ms EXTERNAL EKG QTC CALCULATION 424 ms EXTERNAL EKG P [place] -77 degrees EXTERNAL EKG R [place] 28 degrees EXTERNAL EKG T [place] 53 degrees EXTERNAL EKG 08/01/2024 2:41 PM CDT Impressions EXTERNAL EKG - 08/04/2024 12:00 PM CDT Atrial-sensed ventricular-paced rhythm Abnormal ECG No previous ECGs available Confirmed by Maryann Clay ([id number]) on 08/04/2024 11:59:59 AM Narrative Procedure Note Maryann Clay MD - 08/04/2024 IMPRESSION: Atrial-sensed ventricular-paced rhythm Abnormal ECG No previous ECGs available Confirmed by Maryann Clay ([id number]) on 08/04/2024 11:59:59 AM us Jack Leiva MD IMG ECG ORDERABLES Final Result Performing Organization Address City/[facility]/ZIP Co de Phone Number EXTERNAL EKG [...] Romelia Bowen D.O. PS: PS Report ID: [id number] Reading Location: [id number] Procedure Note Romelia Bowen DO - 08/01/2024 [...] Romelia Bowen D.O. PS: PS Report ID: [id number] Reading Location: [id number] IMPRESSION: Patchy left basilar airspace opacities, which may be related to subsegmental atelectasis/scarring versus developing airspace disease. Jack Leiva MD [facility] [place] DIAGNOSTIC ORDERABLES Final Result * RSV,SARS-COV-2,INFLUENZA A&B BY PCR (08/01/2024 2:28 PM CDT) FLU A Negative Negative, Error 08/01/2024 3:20 PM CDT [facility] FLU B Negative Negative 08/01/2024 3:20 PM CDT [facility] RESP SYNC VIRUS Negative Negative 3:20 PM CDT [facility] SARSCOV2 NOT DETECTED (Reference Range for this test is Not Detected) 08/01/2024 3:20 PM CDT [facility] Comment:This test was perfor med by a Reverse Business Performance Manager PCR Method. Swab NASOPHARYNGEAL STRUCTURE / Unknown Non-Phlebotomy Collection / Unknown 08/01/2024 2:28 PM CDT 08/01/2024 2:33 PM CDT Jack Leiva MD MICROBIOLOGY - GENERAL OR DERABLES Final Result Performing Organization Address [facility] Co de Phone Number [facility] [address] [place] [address] * EKG SCAN (08/01/2024 12:00 AM CDT) 08/01/2024 us Provider Scan IMG ECG ORDERABLES Final Result Performing Organization Address City/[facility] Co de Phone Number RESULTING AGENCY * CT - CHEST (07/22/2024 12:00 AM CDT) 07/22/2024 us Provider Scan IMG CT ORDERABLES Final Result Performing Organization Address City/[facility]/ZIP Co de Phone Number SCAN * XR - LOWER EXTREMITY (07/10/2024 12:00 AM CDT) 07/10/2024 us Provider Scan IMG DIAGNOSTIC ORDERABLES Final Result Performing Organization Address City/[facility] Co de Phone Number SCAN * HEMOGLOBIN, A1C (10/02/2023 12:00 AM CDT) HGB-A1C 7.8 SCAN 10/02/2023 us Provider Scan CHEMISTRY ORDERABLES Final Resul t SCAN * PATHOLOGY CYTOLOGY ASTRO TECHNICIAN (07/05/2022 2:24 PM CDT) SPECIMEN ADEQUACY A scant cellular component is noted. Scant cellularity is likely due to presence of lubricant. 07/08/2022 8:38 AM CDT [facility] DESCRIPTIVE DIAGNOSIS NEGATIVE FOR INTRAEPITHELIAL LESIONS OR MALIGNANCY. 07/08/2022 8:38 AM CDT [facility] at 0838 CDT OTHER FINDINGS Atrophic hormonal pattern. 07/08/2022 8:38 AM CDT [facility] Automated Examination This sample was not evaluated by the automated imaging and review system ([employer], [employer], [place], [place] due to technical and / or biologic factor(s). The case was screened, reviewed, and finalized by a reheat furnace operator and / or pathologist. 07/08/2022 8:38 AM CDT [facility] Disclaimer The PAP smear is a screening [...] unless clinically indicated. 07/08/2022 8:38 AM CDT [facility] Other CERVIX UTERI STRUCTURE / Unknown Non-Phlebotomy Collection / Unknown 07/05/2022 2:24 PM CDT 07/05/2022 2:24 PM CDT us Pili Elkins APRN, CNP PATHOLOGY/CYTOLOGY O RDERABLES Final Result [facility] [address] [place] [address], [place] * HUMAN PAPILLOMA VIRUS (HPV) (07/05/2022 2:24 PM CDT) HPV OTHER HIGH RISK TYPES, PCR NEGATIVE NEGATIVE 07/06/2022 2:37 PM CDT [facility] Comment: The following Other High Risk types [...] 16 NEGATIVE NEGATIVE 07/06/2022 2:37 PM CDT [facility] Comment: A negative high-risk HPV result does [...] 18 NEGATIVE NEGATIVE 07/06/2022 2:37 PM CDT [facility] Comment: A negative high-risk HPV result does [...] SCREENING 07/06/2022 2:37 PM CDT [facility] Other Non-Phlebotomy Collection / Unknown 07/05/2022 2:24 PM CDT 07/05/2022 2:24 PM CDT Narrative [facility] - 07/06/2022 2:37 PM CDT Performed by Real-Time Polymerase Chain Reaction (PCR) on the Ronnie Vinay 4800. This assay has been validated for use with post-aliquot samples from the [employer] T5000 processor. Pili Elkins APRN, CNP LAB SEND OUTS Deann l Result [facility] [address] [place] [address], [facility] [place] [address] * HM COLONOSCOPY (01/09/2020) Genaro Jensen DO PROCEDURE/MINOR SURGICAL ORDERA BLES Final Result * AMB REFERRAL TO PODIATRY (08/13/2019) Alvarez Mensah MD OUTPATIENT REFERRALS Final Res ult * POCT STOOL, OCCULT BLOOD, DIAGNOSTIC (09/07/2018 1:20 PM CDT) OCCULT BLOOD, STOOL Negative Negative, Other POC HEMOCULT CONTROL [employer] 09/07/2018 1:20 PM CDT Pili Elkins APRN, CNP POINT OF CARE TESTIN G (MANUAL) Final Result from Last 3 Months or Most Recently Relevant to Health Maintenance Insurance MEDICARE C [facility] [place] [id number] Care Teams Wagon Driver Relationship Specialty Start Date End Date Justen Gale MD #2 [facility] [address] [place] [address] PCP - General Family Medicine 10/17/17 David Roberts APRN, SCHOOL BOAT DRIVER #2 [place] [address] Nurse Practitioner Advanced Practice Nurse 01/31/22 Annel Rod MD #2 [facility] [address] [place] [address] Consulting Physician Endocrinology 07/01/22
--- OUTSIDE RECORDS SUMMARY | 2024-09-27 02:20 | XMS_ITS | Encounter Summary ---
Author Organization [facility] Address [address] [place] [address] Phone Care Team Providers Care Ms Sql Developer Name Role Phone Justen Gale MD Primary Care Provider [phone] David Roberts APRN, RESIDENTIAL SPECIALIST Unavailable [phone] Annel Rod MD Unavailable Reason for Visit * Reason Onset Date Comments Advice Only 08/19/2024 Follow-up 08/19/2024 Encounter Details Date Type Department Care Team (Late st Contact Info) Description 08/19/2024 Telephone [facility] #2 [place] [address] Justen Gale MD #[address] [address] Advice Only; Follow-up Social History Tobacco Use Types Packs/Day Years Used Date Smoking Tobacco: Never Smokeless Tobacco: Never Alcohol Use Standard Drinks/Week Comments No 0 (1 standard drink = 0.6 oz pur e alcohol) [facility] Utilities Answer Date Recorded In the past [...] Total Score - Questions 1-9 0 07/23 [facility] Answer Date [...] time in the past 12 m [facility], were you homeless or living [...] visit * Telephone Encounter - Angelito Alegria, CRISIS MENTAL HEALTH THERAPIST, RESIDENTIAL SPECIALIST - 08/19/2024 9:04 AM CDT Forwarding * Telephone Encounter - Isaura Weiss RN - 08/19/2024 8:37 AM CDT Situation: Strep throat follow up Background: Patient contacting PCP office. Patient was seen in ED on 08/09 and 08/12 in [place] (records in chart). Diagnosed with strep. Assessment: [...] CDT Symptom: Sore Throat Outcome: Transfer to cordage sales representative queue Reason: Caller denied all higher acuity questions The caller accepted this outcome. Caller Denied: * Struggling for each breath (severe trouble breathing) * Can't swallow saliva (drooling) documented in this encounter Plan of Treatment Upcoming Encounters Date Type Department Care Team (Late st Contact Info) Description 10/22/2024 11:15 AM CDT Office Visit [facility] End[facility]ology - [place] #2 [place] [address] Annel Rod MD #[address] [phone] 11/13/2024 2:00 PM CDT Appointment [facility] Card[facility] Services 1 [place] [address] Angelito Alegria, CRISIS MENTAL HEALTH THERAPIST, RESIDENTIAL SPECIALIST #[address] [address] Discharge Disposition: Discharged to home or Selfcare documented as of this encounter Visit Diagnoses Not on filedocumented in this encounter Additional Health Concerns Assessment Noted Time PHQ-9 Depression Total Score: 0 08/02/19 25 1:09 PM CDT documented as of this encounter Care Teams Ms Sql Developer Relationship Specialty Start Date End Date Justen Gale MD #[address] [address] PCP - General Family Medicine 10/17/17 David Roberts APRN, RESIDENTIAL SPECIALIST #2 [place] [address] Nurse Practitioner Advanced Practice Nurse 01/31/22 Annel Rod MD #[address] [address] Consulting Physician Endocrinology 07/01/22 documented as of this encounter
--- OUTSIDE RECORDS SUMMARY | 2024-09-27 02:20 | XMS_ITS | Encounter Summary ---
Author Organization [facility] Address [address] [place] [address] Phone Care Team Providers Care Electrogalvanizing Machine Operator Name Role Phone Justen Gale MD Primary Care Provider [phone] David Roberts APRN, ROLL FORM OPERATOR Unavailable Annel Rod MD Unavailable Reason for Visit * Reason Onset Date Comments Advice Only 11/21/2023 Encounter Details Date Type Department Care Team (Late st Contact Info) Description 11/21/2023 Telephone [facility] [address] [place] [address] Justen Gale MD #[address] [address] Advice Only Social History Tobacco Use Types [...] 11/21/2023 3:17 PM CDT RFC: Alejandra from [facility] is calling to state that patient [...] Visit [facility] - [place] #2 [place] [address] Annel Rod MD #2 [facility] [address] [place] [address] 11/13/2024 2:00 PM CDT [facility] 1 [place] [address] Angelito Alegria APRN, ROLL FORM OPERATOR #2 [facility] [address] [place] [address] Discharge Disposition: Discharged to home or Selfcare documented as of this encounter Visit Diagnoses Not on filedocumented in this encounter Additional Health Concerns Infection Onset Date Last Indicated Resolved Time COVID - 19 08/01/2024 08/01/2024 08/01/2024 3:20 PM CDT Assessment Noted Time PHQ-9 Depression Total Score: 8 01/18/20 2:24 PM CDT documented as of this encounter Care Teams Electrogalvanizing Machine Operator Relationship Specialty Start Date End Date Justen Gale MD #2 [facility] [address] [place] [address] PCP - General Family Medicine 10/17/17 David Roberts APRN, NETTA #2 [place] [address] Nurse Practitioner Advanced Practice Nurse 01/31/22 Annel Rod MD #2 [facility] [address] [place] [address] Consulting Physician Endocrinology 07/01/22 documented as of this encounter
--- OUTSIDE RECORDS SUMMARY | 2024-09-27 02:20 | XMS_ITS | Encounter Summary ---
Author Organization [facility] Address [address] [place] [address] Phone Care Team Providers Care Parts Counter Specialist Name Role Phone Justen Gale MD Primary Care Provider David Roberts APRN, HR BUSINESS PARTNER CONSULTANT Unavailable Annel Rod MD Unavailable Reason for Visit * Reason Comments Medication Refill Encounter Details Date Type Department Care Team (Late st Contact Info) Description 03/02/2023 Refill [facility] #2 [place] [phone] Justen Gale MD #[address] [address] Medication Refill Social History Tobacco Use Types [...] Tamika Villarreal RN - 03/02/2023 8:51 AM FRUIT VENDOR Medication failed the protocol, provider to review [...] Visit Catrina Quiñonez MD [facility] 09/16/22 Office Visit Pili Elkins APRN, CNP [facility] 07/05/22 Office Visit Pili Elkins APRN, NETTA [facility] 05/02/22 Office Visit Justen Gale MD [facility] 03/03/22 Office Visit Pili Elkins APRN, NETTA [facility] Showing recent visits within past 365 days and meeting all other requirements Future Appointments No visits were found meeting these conditions. Showing future appointments within next 90 days and meeting all other requirements T VENDOR documented in this encounter Plan of Treatment Upcoming Encounters Date Type Department Care Team (Late st Contact Info) Description 10/22/2024 11:15 AM CDT [facility] Visit [facility] - [place] #2 [place] [phone] Annel Rod MD #[address] [phone] 11/13/2024 2:00 PM CDT Appointment [facility] Cardiology Services 1 [place] [address] Angelito Alegria, MACHINE TAILER, HR BUSINESS PARTNER CONSULTANT #[address] [address] Discharge Disposition: Discharged to home or Selfcare documented as of this encounter Visit Diagnoses Not on filedocumented in this encounter Additional Health Concerns Infection Onset Date Last Indicated Resolved Time COVID - 19 08/01/2024 08/01/2024 08/01/2024 3:20 PM CDT Assessment Noted Time PHQ-9 Depression Total Score: 8 01/18/20 2:24 PM CDT documented as of this encounter Care Teams Parts Counter Specialist Relationship Specialty Start Date End Date Justen Gale MD #[address] [address] PCP - General Family Medicine 10/17/17 David Roberts APRN, HR BUSINESS PARTNER CONSULTANT #2 [place] [address] Nurse Practitioner Advanced Practice Nurse 01/31/22 Annel Rod MD #[address] [address] Consulting Physician Endocrinology 07/01/22 documented as of this encounter
--- OUTSIDE RECORDS SUMMARY | 2024-09-27 02:20 | XMS_ITS | Encounter Summary ---
Author Organization [facility] Address [address] [place] [address] Phone Care Team Providers Care Candle Wrapper Name Role Phone Lavonne Hathaway MD Primary Care Provider [phone] Liu Jerez MD Unavailable [phone] Albert Corbin MD Unavailable [phone] Justen Gale MD Primary Care Provider [phone] Lavonne Hathaway MD Primary Care Provider + [phone] Justen Gale MD Primary Care Provider [phone] Khris Arthur MD Unavailable + [phone] Ko Melendez MD Unavailable [phone] John Paul Moyer MD Unavailable Annel Rod MD Unavailable Anali MARSHALL MD, Carlos M. Unavailable [phone] Encounter Details Date Type Department Care Team ([facility] Contact Info) Description 05/15/2017 Orders Only [facility] Scanning, Provider Social History Tobacco Use Types Packs/Day Years Used Date Smoking Tobacco: Former Alcohol Use Standard Drinks/Week Comments No 0 (1 standard drink = 0.6 oz pur e alcohol) Comments Unknown Sex and Gender Information Value Date Recorded Sex Assigned at Not on file Legal Sex Female 12:24 AM MOVEMENT THERAPIST Gender Identity Not on file Sexual [...] COVID: Recovered 02/10/2022 02/10/2022 06/10/2022 3:05 AM MOVEMENT THERAPIST Exposure, COVID-19 Comment:Added automatically based on COVID19 lab answers indicating exposure risk 02/11/2022 02/11/2022 02/15/2022 9:06 AM C DT COVID: Suspected 05/14/2022 05/14/2022 05/14/2022 10:41 AM MOVEMENT THERAPIST COVID: Suspected 06/07/2022 06/07/2022 06/07/2022 12:28 PM MOVEMENT THERAPIST COVID: Suspected 06/21/2022 06/21/2022 06/21/2022 2:12 AM MOVEMENT THERAPIST COVID: Suspected 10/05/2022 10/05/2022 10/05/2022 7:40 PM CDT COVID: Suspected 01/04/2024 01/04/2024 01/04/2024 10:30 PM CDT COVID: Suspected 02/14/2024 02/14/2024 02/15/2024 12:36 AM CDT COVID: Suspected 07/01/2024 07/01/2024 07/01/2024 2:53 PM CDT COVID: Suspected 07/01/2024 07/01/2024 07/02/2024 3:05 AM CDT documented as of this encounter Care Teams Candle Wrapper Relationship Specialty Start Date End Date Lavonne Hathaway MD [address] [place] [address] [place] [address] PCP - General 08/16/16 08/17/17 Justen Gale MD 2 [facility] [address] [address] PCP - General 08/18/17 08/22/17 Lavonne Hathaway MD [address] [place] [address] [place] [address] PCP - General Family Medicine 08/23/17 10/08/17 Justen Gale MD 2 [facility] [address] [address] PCP - General 10/09/17 Liu Jerez MD [address] [place] [address] [place] [address] Consulting Physician Gastroenterology 07/28/[address] [place] [address] [facility] [address] [place] [address] Consulting Physician Pulmonary Disease 08/03/17 Khris Arthur MD [address] [facility] [address] [place] [address] Medical Oncologist/Staff Design Engineer Medical Oncology 10/23/[address] [place] [address] [facility] [address] [place] [address] Surgeon Orthopedic Surgery 10/23/17 [place] [address] [facility] [address] [place] [address] Consulting Physician Pain Management 10/23/[address] [place] [address] [facility] [address] [place] [address] Referring Physician General Surgery 01/26/18 [place] [address] [facility] [address] [place] [address] Consulting Physician Neurology 01/26/18 documented as of this encounter
--- OUTSIDE RECORDS SUMMARY | 2024-09-27 02:20 | XMS_ITS | Encounter Summary ---
Author Organization [facility] Address [address] [place] [address] Phone Care Team Providers Care Nail Maker Name Role Phone Justen Gale MD Primary Care Provider David Roberts APRN, DIAL MOUNTER Unavailable Annel Rod MD Unavailable Reason for Visit * Reason Comments Medication Refill Encounter Details Date Type Department Care Team (Late st Contact Info) Description 08/07/2023 Refill [facility] - [place] #2 [place] [address] Annel Rod MD #[address] [address] Medication Refill Social History Tobacco [...] Description 10/22/2024 11:15 AM CDT Office Visit [facility] - Endocrinology [facility] #2 [place] [address] Annel Rod MD #[address] [address] 11/13/2024 2:00 PM CDT [facility] 1 [place] [address] Angelito Alegria APRN, NETTA #[address] [address] Discharge Disposition: Discharged to home or Selfcare documented as of this encounter Visit Diagnoses Not on filedocumented in this encounter Additional Health Concerns Infection Onset Date Last Indicated Resolved Time COVID - 19 08/01/2024 08/01/2024 08/01/2024 3:20 PM CDT Assessment Noted Time PHQ-9 Depression Total Score: 8 01/18/20 2:24 PM CDT documented as of this encounter Care Teams Nail Maker Relationship Specialty Start Date End Date Justen Gale MD #[address] [place] [address] PCP - General Family Medicine 10/17/17 David Roberts APRN, DIAL MOUNTER #2 [place] [address] Nurse Practitioner Advanced Practice Nurse 01/31/22 Annel Rod MD #[address] [address] Consulting Physician Endocrinology 07/01/22 documented as of this encounter
--- OUTSIDE RECORDS SUMMARY | 2024-09-27 02:20 | XMS_ITS ---
Author Organization [facility] Address [address] [facility] [place] [address] Care Team Providers Care Coil Winder Repair Name Role Phone Justen Gale MD Primary Care Provider [phone] Active Problems Problem Noted Date Diagnosed Date [...]
--- OUTSIDE RECORDS SUMMARY | 2024-09-27 02:20 | XMS_ITS | CONTINUITY OF CARE DOCUMENT ---
Author Name ayesha, ayesha Address Unknown Organization [facility] Address [address] [facility] [address] [place] [address] Phone [phone] Care Team Providers Care Bar Hostess Name Role Phone Yamilet DURÁN, Maico Unavailable [phone] ALANIS DURÁN, BRIDGETT Unavailable [phone] ALLISON DURÁN, CLARISSE Unavailable [phone] PROBLEMS Condition Status Date Provider Notes Shortness of breath active Ivory Rodriguez Palpitations active Radha Seals INSURANCE PROVIDERS Payer name Policy type / Coverage type [place] party ID UHC MEDICARE COMPLETE HMO Other [id number] [facility] Medicaid 2 [id number] HISTORY OF PROCEDURES Procedure Date Procedure Name Provider Procedure Notes S tatus Stress EKG Carmine Silverio MD complet ed Regadenoson, 4 units Sergey Saldana MD completed Cardiolite, 2 units Sergey Saldana MD completed SPECT Images Carmine Silverio MD compl eted Holter, 24 or 48 Maico Woodard MD co mpleted
--- OUTSIDE RECORDS SUMMARY | 2024-09-27 02:20 | XMS_ITS | Encounter Summary ---
Author Organization [facility] Address [address] [place] [address] Phone Care Team Providers Care Assembler Latches And Springs Name Role Phone Justen Gale MD Primary Care Provider David Roberts APRN, FRUIT BAR MAKER Unavailable Annel Rod MD Unavailable Reason for Visit * Reason Onset Date Comments Pain 09/23/2024 Encounter Details Date Type Department Care Team (Late st Contact Info) Description 09/23/2024 Telephone [facility] [address] [place] [address] Justen Gale MD #[address] [address] Pain Social History Tobacco Use Types Packs/Day [...] How often do you attend chur or caodaism services? More than 4 times [...] Total Score - Questions 1-9 0 07/23 [facility] - [...] in the past 12 m [facility], were you homeless or living [...] emergency room. RECOMMENDATION: Please advise Prefers a [facility] Therapy[facility] message back. * Telephone Encounter - Sabrina Ortega - 09/23/2024 3:14 PM CDT Symptom: Pain - Severe widespread - patient has RA Outcome: Transfer to director of restaurants queue Reason: Caller denied all higher acuity questions The caller accepted this outcome. Caller Denied: * Chest pain * Headache * Eye pain * Abdominal pain * Genital pain documented in this encounter Plan of Treatment Upcoming Encounters Date Type Department Care Team (Late st Contact Info) Description 10/22/2024 11:15 AM CDT Office Visit [facility] - [place] #2 [place] [address] Annel Rod MD #2 [facility] [address] [place] [address] 11/13/2024 2:00 PM CDT [facility] 1 [place] [address] Angelito Alegria APRN, FRUIT BAR MAKER #2 [facility] [address] [place] [address] Discharge Disposition: Discharged to home or Selfcare documented as of this encounter Visit Diagnoses Not on filedocumented in this encounter Additional Health Concerns Assessment Noted Time PHQ-9 Depression Total Score: 0 08/02/19 25 1:09 PM CDT documented as of this encounter Care Teams Assembler Latches And Springs Relationship Specialty Start Date End Date Justen Gale MD #2 [facility] [address] [place] [address] PCP - General Family Medicine 10/17/17 David Roberts APRN, FRUIT BAR MAKER #2 [place] [address] Nurse Practitioner Advanced Practice Nurse 01/31/22 Annel Rod MD #[address] [phone] Consulting Physician Endocrinology 07/01/22 documented as of this encounter
--- OUTSIDE RECORDS SUMMARY | 2024-09-27 02:20 | XMS_ITS | Encounter Summary ---
Author Organization [facility] Address [address] [place] [address] Phone Care Team Providers Care Social Services Manager Name Role Phone Justen Gale MD Primary Care Provider [phone] David Roberts APRN, DRAFTER CARTOGRAPHIC Unavailable Annel Rod MD Unavailable Reason for Visit * Reason Comments Medication Refill Encounter Details Date Type Department Care Team (Late st Contact Info) Description 02/07/2023 Refill [facility] #2 [place] [address] Pili Elkins APRN, DRAFTER CARTOGRAPHIC #[address] [address] Medication Refill Social History Tobacco [...] Office Visit [facility] End[facility] #2 [place] [address] Annel Rod MD #2 [facility] [address] [place] [address] 11/13/2024 2:00 PM CDT Appointment [facility] Cardiology Services 1 [place] [address] Angelito Alegria APRN, DRAFTER CARTOGRAPHIC #2 [facility] [address] [place] [address] Discharge Disposition: Discharged to home or Selfcare documented as of this encounter Visit Diagnoses Diagnosis Essential hypertension Unspecified essential hypertension documented in this encounter Additional Health Concerns Infection Onset Date Last Indicated Resolved Time COVID - 19 08/01/2024 08/01/2024 08/01/2024 3:20 PM CDT Assessment Noted Time PHQ-9 Depression Total Score: 8 01/18/20 2:24 PM CDT documented as of this encounter Care Teams Social Services Manager Relationship Specialty Start Date End Date Justen Gale MD #2 [facility] [address] [place] [address] PCP - General Family Medicine 10/17/17 David Roberts APRN, DRAFTER CARTOGRAPHIC #2 [place] [address] Nurse Practitioner Advanced Practice Nurse 01/31/22 Annel Rod MD #2 [facility] [address] [place] [address] Consulting Physician Endocrinology 07/01/22 documented as of this encounter
[2024-09-27 02:25] VITALS: BP 150/78; PULSE 83; RESP 15; O2SAT 95
[2024-09-27 03:39] LABS: Alanine Aminotransferase 28 U/L (6-35); Albumin Level 3.4 g/dL (3.5-5.1); Alkaline Phosphatase 65 U/L (38-126); Anion Gap 7 mmol/L (4-12); Aspartate Amino Transferase 29 U/L (14-36); Bilirubin,Total 0.5 mg/dL (0.2-1.3); Blood Urea Nitrogen 26 mg/dL (7-17); Calcium 9.4 mg/dL (8.4-10.2); Carbon Dioxide 27 mmol/L (22-30); Chloride 104 mmol/L (98-107); Estimated CRCL calculation 85 ml/min; Estimated Glomerular Filt Rate > 60; Glucose 222 mg/dL (65-110); Potassium 3.7 mmol/L (3.4-5.0); Sodium 138 mmol/L (137-145); Total Protein 6.7 g/dL (6.3-8.2)
[2024-09-27] MEDS: LIDOCAINE 2% VISC SOLN 30 ML, ALUMINUM/MAGNESIUM/SIMETH SUSP 30 ML, diphenhydrAMINE HCl... PO (04:31)
[2024-09-27 04:39] VITALS: BP 148/89; PULSE 80; RESP 17; O2SAT 94
== END 2024-09-27 04:41 | disposition home or self-care (01) ==
PROVIDERS: Emergency Provider Student in an Organized Health Care Education/Training Program; PCP Internal Medicine
DX: J03.91 Acute recurrent tonsillitis, unspecified (principal); E11.42 Type 2 diabetes mellitus with diabetic polyneuropathy; I50.9 Heart failure, unspecified; E66.01 Morbid (severe) obesity due to excess calories; Z68.42 Body mass index [BMI] 45.0-49.9, adult; K58.9 Irritable bowel syndrome, unspecified; M33.20 Polymyositis, organ involvement unspecified; G25.81 Restless legs syndrome; G47.33 Obstructive sleep apnea (adult) (pediatric); N32.81 Overactive bladder; F32.A Depression, unspecified; F41.9 Anxiety disorder, unspecified; Z96.82 Presence of neurostimulator; Z96.651 Presence of right artificial knee joint; Z86.16 Personal history of COVID-19; Z85.3 Personal history of malignant neoplasm of breast; Z87.442 Personal history of urinary calculi; Z86.711 Personal history of pulmonary embolism; Z86.718 Personal history of other venous thrombosis and embolism; Z87.891 Personal history of nicotine dependence; Z90.49 Acquired absence of other specified parts of digestive tract; Z90.13 Acquired absence of bilateral breasts and nipples; Z90.721 Acquired absence of ovaries, unilateral; Z79.4 Long term (current) use of insulin; Z79.01 Long term (current) use of anticoagulants; Z79.899 Other long term (current) drug therapy
CPT/HCPCS: 36415; 71046; 80053; 85025; 93005; 96360; 96365; 99284; A9270; J1741; J7120

== ENCOUNTER 2024-10-02 23:09 | Emergency (ER) | payer MEDICARE, SELFPAY ==
--- NOTE | ~2024-10-02 | CT_ITS ---
Non-contrast CT scan of the Abdomen and Pelvis Clinical indication: Kidney stone Technique: 2.5 mm axial scans were obtained through the abdomen and pelvis without intravenous or or al contrast. Dose reduction technique was used on this scan by utilizing automated exposure control a nd iterative reconstruction technique. The dose-length product (DLP) was 1308.51 mGy-cm. COMPARISON: 06/21/2024 Findings: Images through the lung bases reveal no abnormalities. There is no evidence of renal or ureteral calculi. The kidneys and the ureters are nondilated. The liver, spleen, pancreas, and adrenals appear normal. Cholecystectomy clips are present. There is no aortic aneurysm. There is no evidence of bowel obstruction. There is apparent inflammatory or postoperative change in the anterior subcutaneous soft tissues extending from the umbilicus down to the anterior abdominal wa ll, evidence of prior herniorrhaphy. Images through the pelvis were performed. There is no evidence of ascites or lymphadenopathy. Urinary bladder unremarkable. No pelvic mass evident. Impression: No renal, ureteral, or bladder stone. No hydronephrosis. Probable postoperative change versus inflammatory change in the anterior subcutaneous soft tissues wi th evidence of prior herniorrhaphy. Reviewed, dictated and finalized at [facility]. Impression: No renal, ureteral, or bladder stone. No hydronephrosis. Probable postoperative change versus inflammatory change in the anterior subcut aneous soft tissues with evidence of prior herniorrhaphy.
--- OUTSIDE RECORDS SUMMARY | 2024-10-02 23:12 | XMS_ITS | Clinical Summary ---
Author Organization [facility] Address [address] [facility] [place] [address] Care Team Providers Care Garment Examiner Name Role Phone Justen Gale MD Primary Care Provider [phone] Source Comments [facility],non-[facility] Affiliates and Associated Physician Practices is amultiple site organization consisting of ambulatory clinics and hospital sitesin [place], [place], [place] and [place]. This disclosure is being madepursuant to the Care Everywhere program and may not contain all information available regarding this patient. Last updated 18.[facility] PrintToPeer Allergies Active Allergy Reactions Criticality Noted Date [...] Gluc Sensor (FreeStyle Eileen 2 Sensor Systm) [facility] [place]PLY 1 SENSOR AND WEAR FOR 14 [...] Team Description 08/14/2024 [place] [address] Josué Bernal PA-C 08/13/2024 Telephone ER at [facility] [address] [place] [id number] oJrdana Abdul MD ER UC Follow-up 08/09/2024 6:46 PM CDT - 08/09/2024 9:35 PM CDT Emergency ER at [address] [id number] Yasmin Matthew DO Shortness of breath; Strep [...] medical care, and heating? Somewhat hard 05/16/2023 [facility] - Occupational Stress [...] on file Legal Sex Female 6:53 PM AND [employer] Gender Identity Not on file Sexual Orientation [...] this topic Medical Devices Implanted Type Area Cylinder Loader Device Identifier Shelf Expiration Date Model / Serial / Lot Lead Nrstm 60cm Penta 3mm Pdl 16 Chnl Implanted:Qt y: 1 on 09/16/2021 by Maxi Gregg MD at [facility] Right: Spine Thoracic [employer] [id number] / / Description:CAMILO Slnt Dura Duraseal Pg Trilysine Amine 5 Implanted:Qt y: 1 on 09/16/2021 by Maxi Gregg MD at [facility] Right: Spine Thoracic Inte[employer] David [id number] / / Description:CAMILO Proclaim Plus 5 Implanted:Qt y: 1 on 02/16/2023 by Maxi Gregg MD at [facility] Left: Back Cardenas Spine [id number] 11/07/2024 3670 / [id number] / Explanted Type Area Cylinder Loader Device Identifier Shelf Expiration Date Model / Serial / Lot Gntr Nrstm [id number] Proclaim Elt Implanted:Qty: 1 on 09/16/2021 by Maxi Gregg MD at [facility] Explanted:Qty: 1 on 10/30/2021 by Maxi [...] 08/09/2024 8:46 PM CDT [facility] Specific Clio UA 1.014 1.005 - 1.030 08/09/2024 8:46 [...] 5 # /hpf 08/09/2024 8:46 PM CDT [facility] Bacteria UA Trace(A) None Seen 08/09/2024 8:46 PM CDT [facility] Squamous Epithelial Cells None Seen 0 - 5 /hpf 08/09/2024 8:46 PM CDT [facility] Mucus UA 1+ /LPF 08/09/2024 8:46 PM CDT [facility] Urine URINE SPECIMEN OBTAINED BY CLEAN CATCH PROCEDURE / Unknown 08/09/2024 8:39 PM CDT 08/09/2024 8:39 PM CDT Narrative [facility] - 08/09/2024 8:46 PM CDT Yasmin Matthew DO LAB - URINALYSIS ORDERABLES Final Result Performing Organization Address City/State/[facility] Co de Phone Number [facility] [address] [place] [address] * (ABNORMAL) CULTURE URINE (08/09/2024 8:39 PM CDT) [facility] Culture Urine 50,000-100,000 CFU/mL Escherichia coli(A) TERRANCE 08/12/2024 4:04 AM CDT [facility] Culture Urine 10,000-50,000 CFU/mL urogenital evelio TERRANCE 08/12/2024 4:04 AM CDT [facility] Urine URINE SPECIMEN OBTAINED BY CLEAN CATCH PROCEDURE / Unknown 08/09/2024 8:39 PM CDT 08/09/2024 8:39 PM CDT Narrative [facility] - 08/12/2024 4:04 AM CDT [...] LAB - MICROBIOLOGY ORDERABLE S Final Result [facility] [address] [facility] [place], [place] [address], [facility] [phone] * SARS-COV-2 (COVID-19) FLU A/B RSV PCR RAPID (08/09/2024 7:40 PM CDT) [facility] COVID-19 PCR Not detected Not detected 08/10/19 8:24 PM CDT [facility] Influenza A PCR Not detected Not detected 08/09/2024 8:24 PM CDT [facility] Influenza B PCR Not detected Not detected 08/09/2024 8:24 PM CDT [facility] RSV PCR Not detected Not detected 08/09/2024 8:24 PM CDT [facility] Microbiology SPECIMEN FROM NASOPHARYNGEAL STRUCTURE / Unknown Collection / Unknown 08/09/2024 7:40 PM CDT 08/09/2024 7:40 PM CDT Narrative [facility] - 08/09/2024 8:24 PM CDT [...] ORDERABLE S Final Result Performing Organization Address [facility] Co de Phone Number [facility] [address] [place] [phone] * (ABNORMAL) STREP A SCREEN DIRECT W RFLX STREP A CULTURE (08/09/2024 7:40 PM CDT) [facility] Strep A Rapid Positive(A ) Negative 08/09/2024 7:53 PM CDT [facility] Microbiology ENTIRE THROAT (SURFACE REGION OF NECK) / Unknown Collection / Unknown 08/09/2024 7:40 PM CDT 08/09/2024 7:40 PM CDT Yasmin Vipul LAB - MICROBIOLOGY ORDERABLE S Final Result Performing Organization Address [facility] de Phone Number [facility] [address] [place] [phone] * EKG 12-LEAD (08/09/2024 7:06 PM CDT) Ventricular Rate 86 BPM [facility] Atrial Rate 86 BPM [facility] P-R Interval 122 ms [facility] QRS Duration ms 86 ms [facility] Q-T Interval ms 370 ms [facility] QTC Calculation (Bezet) 442 ms [facility] Calculated R [place] 8 degrees [facility] Calculated T [place] 51 degrees [facility] Interpretation EKG NORMAL SINUS RHYTHM WITH SINUS ARRHYTHMIA SEPTAL INFARCT , AGE UNDETERMINED ABNORMAL ECG WHEN COMPARED WITH ECG OF 09-AUG-2024 13:34, SINUS RHYTHM HAS REPLACED ECTOPIC ATRIAL RHYTHM SEPTAL INFARCT IS NOW PRESENT Confirmed by Gil Prerin MD ([id number]) on 08/10/2024 9:03:52 AM [facility] 08/09/2024 7:06 PM CDT 08/10/2024 9:03 AM CDT Josué Bernal PA-C ECG ORDERABLES Edited Re sult - Final Performing Organization Address City/[facility]/ZIP Co de Phone Number [facility] * TROPONIN-I HIGH SENSITIVE REFLEX 1HOUR (08/09/2024 3:29 PM CDT) [facility] Troponin I High Sensitive 5 <=14 ng/L 08/09/2024 4:50 PM CDT [facility] Delta Troponin I HS 08/09/2024 4:50 PM CDT [facility] Comment:Delta value intentio yissel not calculated. Baseline to 1 hour specimen collection interval exceeded. Blood BLOOD SPECIMEN / Unknown Venipuncture / Unknown 08/09/2024 3:29 PM CDT 08/09/2024 3:33 PM CDT Josué Bernal PA-C LAB - CHEMISTRY ORDERABLE S Final Result Performing Organization Address [facility] Co de Phone Number [facility] [address] [place] [address] * XR CHEST 2VW (08/09/2024 1:59 PM [...] BASELINE + 1HR (08/09/2024 1:40 PM CDT) [facility] Troponin I High Sensitive 6 <=14 ng/L 08/09/2024 2:14 PM CDT [facility] Blood BLOOD SPECIMEN / Unknown Venipuncture / Unknown 08/09/2024 1:40 PM CDT 08/09/2024 1:43 PM CDT Josué Bernal PA-C LAB - CHEMISTRY ORDERABLE S Final Result [facility] [address] [place] [address] * (ABNORMAL) CBC W AUTO DIFFERENTIAL (08/09/2024 1:40 PM CDT) [facility] WBC 15.6(H) 4.0 - 10.7 x10E9/L 08/09/2024 1:47 PM CDT [facility] RBC Count 4.44 3.90 - 5.20 x10E12/L 08/09/2024 1:47 PM CDT [facility] Hemoglobin 13.0 11.9 - 15.8 g/dL 08/09/2024 1:47 PM CDT [facility] Hematocrit 40.4 34.8 - 46.1 % 08/09/2024 1:47 PM CDT [facility] MCV 91.0 80.0 - 98.0 fL 08/09/2024 1:47 PM CDT [facility] MCH 29.3 26.7 - 33.6 pg 08/09/2024 1:47 PM CDT [facility] MCHC 32.2 31.7 - 36.3 g/dL 08/09/2024 1:47 PM CDT [facility] RDW-CV 13.0 11.3 - 14.8 % 08/09/2024 1:47 PM CDT [facility] Platelet Count 249 150 - 420 x10E9/L 08/09/2024 1:47 PM CDT [facility] MPV 9.6 7.8 - 11.4 fL 08/09/2024 1:47 PM CDT [facility] Neutrophil % 72.7 41.0 - 74.0 % 08/09/2024 1:47 PM CDT [facility] Lymphocyte % 18.0 17.0 - 47.0 % 08/09/2024 1:47 PM CDT [facility] Monocyte % 7.5 3.0 - 11.0 % 08/09/2024 1:47 PM CDT [facility] Eosinophil % 1.2 0.0 - 7.0 % 08/09/2024 1:47 PM CDT [facility] Basophil % 0.2 0.0 - 1.6 % 08/09/2024 1:47 PM CDT [facility] Immature Granulocytes % 0.4 0.0 - 1.0 % 08/09/2024 1:47 PM CDT [facility] Neutrophil Absolute 11.35(H) 1.60 - 7.50 x10E9/L 08/09/2024 1:47 PM CDT [facility] Lymphocyte Absolute 2.82 1.00 - 4.40 x10E9/L 08/09/2024 1:47 PM CDT [facility] Monocyte Absolute 1.18(H) 0.15 - 1.00 x10E9/L 08/09/2024 1:47 PM CDT [facility] Eosinophil Absolute 0.19 0.00 - 0.60 x10E9/L 08/09/2024 1:47 PM CDT [facility] Basophil Absolute 0.03 0.00 - 0.13 x10E9/L 08/09/2024 1:47 PM CDT [facility] Blood BLOOD SPECIMEN / Unknown Venipuncture / Unknown 08/09/2024 1:40 PM CDT 08/09/2024 1:43 PM CDT Josué MCKEON-C LAB - HEMATOLOGY ORDERABL ES Final Result Performing Organization Address [facility] Co de Phone Number [facility] [address] [place] [phone] * B-TYPE NATRIURETIC PEPTIDE (08/09/2024 1:40 PM CDT) BNP 29 <=100 pg/mL 08/09/2024 2:11 PM CDT [facility] Blood BLOOD SPECIMEN / Unknown Venipuncture / Unknown 08/09/2024 1:40 PM CDT 08/09/2024 1:43 PM CDT Narrative [facility] - 08/09/2024 2:11 PM CDT [...] ORDERABLE S Final Result Performing Organization Address [facility] Co de Phone Number [facility] [address] [place] [phone] * (ABNORMAL) COMPREHENSIVE METABOLIC PANEL (08/09/2024 1:40 PM CDT) [facility] Glucose 212(H) 70 - 99 mg/dL 08/09/2024 2:09 PM CDT [facility] Sodium 136 136 - 145 mmol/L 08/09/2024 2:09 PM CDT [facility] Potassium 3.9 3.5 - 5.1 mmol/L 08/09/2024 2:09 PM CDT [facility] Chloride 103 98 - 107 mmol/L 08/09/2024 2:09 PM CDT [facility] CO2 24 22 - 29 mmol/L 08/09/2024 2:09 PM T [facility] Calcium 9.4 8.4 - 10.4 mg/dL 08/09/2024 2:09 PM [facility] Anion Gap 9 6 - 16 mmol/L 08/09/2024 2:09 PM T [facility] BUN 19 7 - 26 mg/dL 08/09/2024 2:09 PM T [facility] Creatinine 0.82 0.57 - 1.11 mg/dL 08/09/2024 2:09 PM [facility] Alkaline Phosphatase 68 40 - 150 U/L 08/09/2024 2:09 PM CDT [facility] ALT 22 6 - 57 U/L 08/09/2024 2:09 PM T [facility] AST 23 10 - 48 U/L 08/09/2024 2:09 PM [facility] Protein Total 8.0 6.4 - 8.3 gm/dL 08/09/2024 2:09 PM T [facility] Albumin 3.3(L) 3.4 - 5.0 gm/dL 08/09/2024 2:09 PM [facility] Bilirubin Total 0.9 0.2 - 1.2 mg/dL 08/09/2024 2:09 PM [facility] eGFR by CKD-EPI 78(L) >=90 mL/min/1.7 3 m2 08/09/2024 2:09 PM [facility] Blood BLOOD SPECIMEN / Unknown Venipuncture / Unknown 08/09/2024 1:40 PM CDT 08/09/2024 1:43 PM CDT Josué MCKEON-Ana Laura LAB - CHEMISTRY ORDERABLE S Final Result Performing Organization Address [facility] de Phone Number [facility] [address] [place], [place] [id number] * (ABNORMAL) MAGNESIUM BLOOD (08/09/2024 1:40 PM CDT) Pathologist [facility] Magnesium 1.5(L) 1.6 - 2.6 mg/dL 08/09/2024 2:09 PM CDT [facility] Blood BLOOD SPECIMEN / Unknown Venipuncture / Unknown 08/09/2024 1:40 PM CDT 08/09/2024 1:43 PM CDT Josué MCKEON-C LAB - CHEMISTRY ORDERABLE S Final Result Performing Organization Address [facility] de Phone Number [facility] [address] [place] [address] * CK BLOOD (08/09/2024 1:40 PM CDT) [facility] CK 107 29 - 168 U/L 08/09/2024 7:44 PM CDT [facility] Blood BLOOD SPECIMEN / Unknown Venipuncture / Unknown 08/09/2024 1:40 PM CDT 08/09/2024 1:43 PM CDT Yasmin Matthew DO LAB - CHEMISTRY ORDERABLES F inal Result Performing Organization Address [facility] Co de Phone Number [facility] [address] [place] [phone] * HEPATITIS C AB SCREEN RFLX NAAT QUANT (02/21/2023 6:30 PM CDT) [facility] Hepatitis C Antibody Non-react hugh Non-reac tive 02/21/2023 7:32 PM CDT [facility] Comment:Hepatitis C Antibody screen [...] ORDERABLES Fi nal Result Performing Organization Address City/[facility]/ZIP Co de Phone Number [facility] [address] [place] [address], [place] [phone] * (ABNORMAL) HEMOGLOBIN A1C (12/25/2022 3:56 AM CDT) Hemoglobin A1c 8.6(H) <=5.6 % 12/25/2022 2:47 PM CDT [facility] Estimated Average Glucose 200 mg/dL 12/25/2022 2:47 PM CDT [facility] Comment: HbA1c Interpretation: Normal : < 5.7% Pre-diabetes: 5.7-6.4% Diabetes: Equal to or greater than 6.5% Test results diagnostic of diabetes should be repeated for confirmation. Treatment target values recommended by ADA and other clinical organizations should be used to evaluate metabolic control in patients. Reference: [place] [employer], Standards of Care in Diabetes [...] LAB - CHEMISTRY ORDERA BLES Final Result [facility] [address] [place] [address], [place] [phone] from Last 3 Months or Most Recently [...] 3:37 AM 03/23/2023 7:14 PM Care Teams Garment Examiner Relationship Specialty Start Date End Date Justen Gale MD PCP - General 07/05/21
--- OUTSIDE RECORDS SUMMARY | 2024-10-02 23:12 | XMS_ITS | Clinical Summary ---
Author Organization [facility] Address [address] [place] [address] Care Team Providers Care Electronics Research Engineer Name Role Phone Liu Jerez MD Unavailable [phone] Albert Corbin MD Unavailable [phone] Justen Gale MD Primary Care Provider Khris Arthur MD Unavailable [phone] Ko Melendez MD Unavailable John Paul Moyer MD Unavailable [phone] Annel Rod MD Unavailable Anali MARSHALL MD, Carlos M. 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 [...] complication, without long-term current use of insulin ([facility]) 10/23/2017 Assessment & Plan [...] 10/13/2017 Assessment & Plan (05/22/2024 12:29 PM GROUP LEADER WAFER POLISHING): -Hx stage II, ER positive, HER2 negative [...] 08/01/2017 Assessment & Plan (05/22/2024 12:33 PM GROUP LEADER WAFER POLISHING): -Hx LUL -Hospital provided CPAP ordered History of DVT (deep vein thrombosis) 08/01/2017 History of pulmonary embolism 08/01/2017 Generalized weakness 07/27/2017 Dyspnea 07/27/2017 Unintentional weight loss 07/27/2017 Acute cystitis without hematuria 07/27/2017 Nausea and vomiting 07/26/2017 Overview (07/28/2017): Added automatically from request for surgery [id number] Pulmonary embolism 08/09/2016 Assessment & Plan (10/23/2017 2:05 AM CDT): On Rivaroxaban Lymphedema of left upper extremity 08/09/2016 Assessment & Plan (05/25/2024 7:53 AM GROUP LEADER WAFER POLISHING): S/p L axillary lymph node dissection 2014, [...] syndrome Assessment & Plan (05/22/2024 11:18 AM GROUP LEADER WAFER POLISHING): -continue home Requip 5mg nightly Pain of lower extremity 03/12/2013 Overview (07/29/2016): Leg pain Essential hypertension Assessment & Plan (05/23/2024 10:42 AM GROUP LEADER WAFER POLISHING): -Chart history of HTN but not on meds -BP elevated on admission, likely some pain contributing -Monitor closely once pain under adequate control, discussed following up with PCP for this Chronic anticoagulation Restless leg syndrome 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 Type 2 diabetes mellitus without complication Assessment & Plan (05/24/2024 1:39 PM GROUP LEADER WAFER POLISHING): -Last Ha1c 8.4 in 2023, repeat 8.7 [...] 0.6 oz pur e alcohol) [facility] [employer] Answer Date Recorded In the past 12 months has [employer], gas, oil, or water [employer] threatened to shut off services in your [...] you attend chur ch or buddhism services? More than 4 times per year 05/24/2024 Do you belong to any clubs o r organizations such as caodaism groups, unions, fraternal or athletic groups, or [...] file Legal Sex Female 12:24 AM GROUP LEADER WAFER POLISHING Gender Identity Not on file Sexual Orientation [...] Additional history exists Lipid Panel 05/21/2025 05/21/2024, 062 05/2023, 08/14/2023, Additional history exists Fall Risk [...] Priority Date/Time Associated Diagnosis Comments EGFR STAT 07/01/2024 2:02 PM CDT HEMOGLOBIN A1C STAT 05/21/2024 4:20 PM GROUP LEADER WAFER POLISHING LIPID PANEL STAT 05/21/2024 4:20 PM GROUP LEADER WAFER POLISHING DEXA AXIAL SKELETON BONE DENSITY 1 OR MORE SITES Schedule Routine, Read Routine (OP Routine) 08/02/2022 10:53 AM CDT Malignant neoplasm of upper-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, unspecified estrogen receptor status (HCC) COLONOSCOPY REPORT 07/03/2017 SCREENING MAMMOGRAM Routine 08/19/2016 7 :27 PM CDT from Last 3 Months or Most Recently Relevant to Health Maintenance Results * eGFR (07/01/2024 2:02 PM CDT) eGFR [...] last reviewed 2021. Testing performed by: [facility], [address] [place] [address]., [id number] Blood 07/01/2024 2:02 PM CDT 07/01/2024 2:12 PM CDT us Ilana Stevens MD LAB BLOOD ORDERABLES F inal Result Performing Organization Address City/[facility]/ZIP Co de Phone Number [place] [phone] [facility] Department [place] [address] * (ABNORMAL) Hemoglobin A1c (05/21/2024 4:20 PM GROUP LEADER WAFER POLISHING) [facility] Hgb A1C 8.7(H) 4.0 - 5.6 % Estimated Average Glucose 203 mg/dL [facility] Comment: The ADA recommends reporting an estimated Average Glucose (eAG) with all Hemoglobin A1c results using the equation derived from a study of 507 normal and diabetic adults. Minority populations were underrepresented and children were not included. (Diabetes Care 2020; 43(S1): S66-S76). The eAG is not equivalent to a fasting glucose. Blood 05/21/2024 4:20 PM GROUP LEADER WAFER POLISHING 05/21/2024 4:55 PM GROUP LEADER WAFER POLISHING us Leo Henry MD LAB BLOOD ORDERABLES Final Result [facility] Department [place] [address] * (ABNORMAL) Lipid panel (05/21/2024 4:20 PM GROUP LEADER WAFER POLISHING) Cholesterol 205(H) 30 - 199 mg/dL Comment: [...] 2017. Triglycerides 92 <=149 mg/dL [facility] Comment: Interpretive Data Ages < [...] 2017. HDL 55 >=40 mg/dL [facility] Comment: Interpretive Data Ages < [...] LDL, calculated 134(H) <=129 mg/dL [facility] Comment: Interpretive Data Ages < [...] revised on 2023. Non-HDL Cholesterol 150 mg/dL [facility] Comment: Interpretive Data Ages < [...] last revised on 2017. Chol/HDL ratio 4 [facility] Blood 05/21/2024 4:20 PM GROUP LEADER WAFER POLISHING 05/21/2024 4:50 PM GROUP LEADER WAFER POLISHING Narrative [facility] - 05/22/2024 4:17 PM GROUP LEADER WAFER POLISHING Reflex us Leo Henry MD LAB BLOOD ORDERABLES Final Result [facility] [place] [address] * Dexa Axial Skeleton Bone Density 1 or 2 Site (08/02/2022 10:53 AM CDT) Anatomical Region Laterality Modality Body N/A Radiographic Lizeth ging Narrative 08/02/2022 3:34 PM CDT Patient Name: Karly Marques Date of : 1955 Date of scan: 08/02/2022 Bone mineral density was performed on a [employer] Discovery Densitometer. Based on machine cross-calibration and [...] by the International Society of Clinical Densitometry. [id number] us Khris Atrhur MD IMG DXA PROCEDURES F inal Result [...] agrees with it. ACC# Date Time Exam [id number] Aug 19, 2016 14:27:00 [facility] [id number] DiaUsentric Mamm, inc CAD, unilat L Technologist(s): Carla Harris; ; [id number] Aug 19, 2016 15:39:00 [facility] [id number] Breast US unilateral, ltd L ACC# Date Time Exam [id number] Aug 19, 2016 14:27:00 [facility] [id number] DiaUsentric Mamm, inc CAD, unilat L Technologist(s): Carla Harris; ; [id number] Aug 19, 2016 15:39:00 [facility] 72799 Breast US unilateral, ltd L EXAMINATION: LEFT [...] SARABIA M.D. on Aug 19 2016 4:20P [id number] Procedure Note Miscellaneous, Not In File / Provider, MD Tyler - 09/17/2016 Avery DOYLE M.D. FINAL REPORT The radiology attending physician has personally reviewed this study, and has reviewed and/or edited this written report and agrees with it. ACC# Date Time Exam [id number] Aug 19, 2016 14:27:00 [facility] [id number] Diag Mamm, inc CAD, unilat L Technologist(s): Carla Harris; ; [id number] Aug 19, 2016 15:39:00 [facility] [id number] Breast US unilateral, ltd L ACC# Date Time Exam [id number] Aug 19, 2016 14:27:00 [facility] [address]604 Diag Mamm, inc CAD, unilat L Technologist(s): Carla Harris; ; [id number] Aug 19, 2016 15:39:00 [facility] [address]98 Breast US unilateral, ltd L EXAMINATION: LEFT [...] SARABIA M.D. on Aug 19 2016 4:20P [id number] us Not In File Miscellaneous IMG MAMMO PROCEDURES F inal Result from Last 3 Months or Most Recently Relevant to Health Maintenance [place] [address] UHC MEDICARE ADVANTAGE [place] [address] [place] [address] Advance Directives For more information, please contact: [phone] Documents on File Type Date Recorded Patient Wedding Consultant Expl anation ADVANCE DIRECTIVE 12/23/2021 2:49 PM Power of Substation Operator Chief-Medical ADVANCE DIRECTIVE 12/23/2021 2:49 PM Living Will [...] Agents on File Name Relationship Healthcare Agent Firsthealthhi p Communication Yunior Marques Daughter Health Care Agent Jimmie Marques Spouse First Alternate Health Care Agent Care Teams Electronics Research Engineer Relationship Specialty Start Date End Date Justen Gale MD 2 [facility] [address] [place] [address] PCP - General 10/09/17 Liu Jerez MD Consulting Physician Gastroenterology 07/28/[address] [place] [address] [facility] [address] [place] [address] Consulting Physician Pulmonary Disease 08/03/17 [place] [address] [place] [address] [place] [address] Medical Oncologist/Flight Test Supervisor Medical Oncology 10/23/[address] [place] [address] [facility] [address] [place] [address] Surgeon Orthopedic Surgery 10/23/17 [place] [id number] [address] Consulting Physician Pain Management 10/23/17 [place] [id number] [address] Referring Physician General Surgery 01/26/18 [place] [address] [facility] [address] [place] [address] Consulting Physician Neurology 01/26/18
--- OUTSIDE RECORDS SUMMARY | 2024-10-02 23:12 | XMS_ITS | Encounter Summary ---
Author Organization [facility] Address [address] [place] [address] Phone Care Team Providers Care Clinical Engineering Director Name Role Phone Justen Gale MD Primary Care Provider David Roberts APRN, DRAWING KILN SUPERVISOR Unavailable [phone] Annel Rod MD Unavailable Reason for Visit * Reason Comments Medication Refill Encounter Details Date Type Department Care Team (Late st Contact Info) Description 02/07/2023 [facility]ill [facility] - Family Medicine [facility] #2 [place] [address] Pili Elkins APRN, DRAWING KILN SUPERVISOR #[address] [address] Medication Refill Social History Tobacco [...] Group - Endocrinology [facility] #2 [place] [address] Annel Rod MD #2 [facility] [address] [place] [address] 11/13/2024 2:00 PM CDT Appointment [facility] Cardiology Services 1 [place] [address] Angelito Alegria APRN, DRAWING KILN SUPERVISOR #2 [facility] [address] [place] [address] Discharge Disposition: Discharged to home or Selfcare documented as of this encounter Visit Diagnoses Diagnosis Essential hypertension Unspecified essential hypertension documented in this encounter Additional Health Concerns Infection Onset Date Last Indicated Resolved Time COVID - 19 08/01/2024 08/01/2024 08/01/2024 3:20 PM CDT Assessment Noted Time PHQ-9 Depression Total Score: 8 01/18/20 2:24 PM CDT documented as of this encounter Care Teams Clinical Engineering Director Relationship Specialty Start Date End Date Justen Gale MD #2 [facility] [address] [place] [address] PCP - General Family Medicine 10/17/17 David Roberts APRN, DRAWING KILN SUPERVISOR [address]2 [place] [address] Nurse Practitioner Advanced Practice Nurse 01/31/22 Annel Rod MD #2 [facility] [address] [place] [address] Consulting Physician Endocrinology 07/01/22 documented as of this encounter
--- OUTSIDE RECORDS SUMMARY | 2024-10-02 23:12 | XMS_ITS | Encounter Summary ---
Author Organization [facility] Address [address] [place] [address] Phone Care Team Providers Care Assistant Accounting Manager Name Role Phone Justen Gale MD Primary Care Provider [phone] David Roberts APRN, CARE TRANSITIONS MANAGER Unavailable Annel Rod MD Unavailable Reason for Visit * Reason Comments Medication Refill Encounter Details Date Type Department Care Team (Late st Contact Info) Description 03/05/2023 Refill [facility] - Family Medicine [facility] #2 [place] [address] Pili Elkins APRN, CARE TRANSITIONS MANAGER #[address] [address] Medication Refill Social History Tobacco [...] discontinued on 10/19/2022 by Justen Gale MD MENT MANAGEMENT ANALYST documented in this encounter Plan of Treatment Upcoming Encounters Date Type Department Care Team (Late st Contact Info) Description 10/22/2024 11:15 AM CDT Office Visit [facility] - Endocrinology - [place] #2 [place] [address] Annel Rod MD #2 [facility] [address] [place] [address] 11/13/2024 2:00 PM CDT [facility] 1 [place] [address] Angelito Alegria APRN, CARE TRANSITIONS MANAGER #2 [facility] [address] [place] [address] Discharge Disposition: Discharged to home or Selfcare documented as of this encounter Visit Diagnoses Diagnosis Essential hypertension Unspecified essential hypertension documented in this encounter Additional Health Concerns Infection Onset Date Last Indicated Resolved Time COVID - 19 08/01/2024 08/01/2024 08/01/2024 3:20 PM CDT Assessment Noted Time PHQ-9 Depression Total Score: 8 01/18/20 2:24 PM CDT documented as of this encounter Care Teams Assistant Accounting Manager Relationship Specialty Start Date End Date Justen Gale MD #2 [facility] [address] [place] [address] PCP - General Family Medicine 10/17/17 David Roberts APRN, NETTA #2 [place] [address] Nurse Practitioner Advanced Practice Nurse 01/31/22 Annel Rod MD #2 [facility] [address] [place] [address] Consulting Physician Endocrinology 07/01/22 documented as of this encounter
--- OUTSIDE RECORDS SUMMARY | 2024-10-02 23:12 | XMS_ITS | Encounter Summary ---
Author Organization [facility] Address [address] [place] [address] Phone Care Team Providers Care Rehabilitation Center Manager Name Role Phone Justen Gale MD Primary Care Provider David Roberts APRN, ATOMIC WELDER Unavailable Annel Rod MD Unavailable Reason for Visit * Reason Comments Medication Refill Encounter Details Date Type Department Care Team (Late st Contact Info) Description 08/07/2023 Refill [facility] - Endocrinology - [place] #2 [place] [address] Annel Rod MD #[address] [address] Medication Refill Social History [...] Description 10/22/2024 11:15 AM CDT Office Visit [facility] - Endocrinology [facility] #2 [place] [address] Annel Rod MD #[address] [address] 11/13/2024 2:00 PM CDT [facility] 1 [place] [address] Angelito Alegria APRN, NETTA #[address] [address] Discharge Disposition: Discharged to home or Selfcare documented as of this encounter Visit Diagnoses Not on filedocumented in this encounter Additional Health Concerns Infection Onset Date Last Indicated Resolved Time COVID - 19 08/01/2024 08/01/2024 08/01/2024 3:20 PM CDT Assessment Noted Time PHQ-9 Depression Total Score: 8 01/18/20 2:24 PM CDT documented as of this encounter Care Teams Rehabilitation Center Manager Relationship Specialty Start Date End Date Justen Gale MD #[address] [place] [address] PCP - General Family Medicine 10/17/17 David Roberts APRN, ATOMIC WELDER #2 [place] [address] Nurse Practitioner Advanced Practice Nurse 01/31/22 Annel Rod MD #[address] [address] Consulting Physician Endocrinology 07/01/22 documented as of this encounter
--- OUTSIDE RECORDS SUMMARY | 2024-10-02 23:12 | XMS_ITS | Encounter Summary ---
Author Organization [facility] Address [address] [place] [address] Phone Care Team Providers Care Ancillary Services Manager Name Role Phone Justen Gale MD Primary Care Provider aDvid Roberts APRN, DECALER Unavailable Annel Rod MD Unavailable Reason for Visit * Reason Comments Medication Refill Encounter Details Date Type Department Care Team (Late st Contact Info) Description 04/13/2023 Refill [facility] - Endocrinology - [place] #2 [place] [address] Annel Rod MD #[address] [address] Medication Refill Social History Tobacco [...] Jennifer Wang, RN - 04/14/2023 10:00 AM CRIMINAL LAWYER Requested Prescriptions Pending Prescriptions Disp Refills ??? Continuous Blood Gluc Sensor (FreeStyle Eileen 2 Sensor) Misc [Pharmacy Med Name: FREESTYLE EILEEN 2 SENSOR] 6 Each 1 Sig: APPLY 1 SENSOR AND WEAR FOR 14 DAYS TO CHECK BLOOD SUGAR Next appt: 05/30/2023 INAL LAWYER documented in this encounter Plan of Treatment Upcoming Encounters Date Type Department Care Team (Late st Contact Info) Description 10/22/2024 11:15 AM CDT Office Visit [facility] - Endocrinology - [place] #2 [place] [address] Annel Rod MD #2 [facility] [address] [place] [address] 11/13/2024 2:00 PM CDT [facility] 1 [place] [address] Angelito Alegria, ZAMZAM, DECALER #2 [facility] [address] [place] [address] Discharge Disposition: Discharged to home or Selfcare documented as of this encounter Visit Diagnoses Not on filedocumented in this encounter Additional Health Concerns Infection Onset Date Last Indicated Resolved Time COVID - 19 08/01/2024 08/01/2024 08/01/2024 3:20 PM CDT Assessment Noted Time PHQ-9 Depression Total Score: 8 01/18/20 2:24 PM CDT documented as of this encounter Care Teams Ancillary Services Manager Relationship Specialty Start Date End Date Justen Gale MD #2 [facility] [address] [place] [address] PCP - General Family Medicine 10/17/17 David Roberts APRN, DECALER #2 [place] [address] Nurse Practitioner Advanced Practice Nurse 01/31/22 Annel Rod MD #[address] [address] Consulting Physician Endocrinology 07/01/22 documented as of this encounter
--- OUTSIDE RECORDS SUMMARY | 2024-10-02 23:12 | XMS_ITS ---
Author Organization [facility] Address [address] [facility] [place] [address] Care Team Providers Care Insurance Rater Name Role Phone Justen Gale MD Primary Care Provider [phone] Active Problems Problem Noted Date Diagnosed Date [...]
--- OUTSIDE RECORDS SUMMARY | 2024-10-02 23:12 | XMS_ITS ---
Author Organization [facility] Address [address] [place] [address] Care Team Providers Care Precinct I Police Sergeant Name Role Phone Liu Jerez MD Unavailable Albert Corbin MD Unavailable [phone] Justen Gale MD Primary Care Provider Khris Arthur MD Unavailable [phone] Ko Melendez MD Unavailable John Paul Moyer MD Unavailable Annel Rod MD Unavailable Anali MARSHALL MD, Carlos M. Unavailable Active Problems Problem Noted Date Diagnosed Date Urinary tract infection 05/22/2024 Assessment & Plan (05/26/2024 10:08 AM REAL ESTATE SALES ASSOCIATE): Presenting with urinary symptoms of [...] 05/22/2024 Assessment & Plan (05/25/2024 7:52 AM REAL ESTATE SALES ASSOCIATE): Hx of breast cancer c/b [...] 05/22/2024 Assessment & Plan (05/22/2024 1:14 PM REAL ESTATE SALES ASSOCIATE): -long-standing chronic back pain -CT [...] 09/12/2021 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) 2021 [facility] (current) use 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 inhibitors 10/17/2019 Thyroid [...] complication, without long-term current use of insulin ([facility]) 10/23/2017 Assessment & Plan (10/23/2017 2:06 [...] 10/13/2017 Assessment & Plan (05/22/2024 12:29 PM REAL ESTATE SALES ASSOCIATE): -Hx stage II, ER positive, [...] 08/01/2017 Assessment & Plan (05/22/2024 12:33 PM REAL ESTATE SALES ASSOCIATE): -Hx LUL -Hospital provided CPAP ordered History of DVT (deep vein thrombosis) 08/01/2017 History of pulmonary embolism 08/01/2017 Generalized weakness 07/27/2017 Dyspnea 07/27/2017 Unintentional weight loss 07/27/2017 Acute cystitis without hematuria 07/27/2017 Nausea and vomiting 07/26/2017 Overview (07/28/2017): Added automatically from request for surgery [id number] Pulmonary embolism 08/09/2016 Assessment & Plan (10/23/2017 2:05 AM CDT): On Rivaroxaban Lymphedema of left upper extremity 08/09/2016 Assessment & Plan (05/25/2024 7:53 AM REAL ESTATE SALES ASSOCIATE): S/p L axillary lymph node [...] syndrome Assessment & Plan (05/22/2024 11:18 AM REAL ESTATE SALES ASSOCIATE): -continue home Requip 5mg nightly Pain of lower extremity 03/12/2013 Overview (07/29/2016): Leg pain Essential hypertension Assessment & Plan (05/23/2024 10:42 AM REAL ESTATE SALES ASSOCIATE): -Chart history of HTN but not on meds -BP elevated on admission, likely some pain contributing -Monitor closely once pain under adequate control, discussed following up with PCP for this Chronic anticoagulation Restless leg syndrome 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 Type 2 diabetes mellitus without complication Assessment & Plan (05/24/2024 1:39 PM REAL ESTATE SALES ASSOCIATE): -Last Ha1c 8.4 in 2023, [...] left female breast, unspecified estrogen receptor status (HCC)material preparation worker (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
--- OUTSIDE RECORDS SUMMARY | 2024-10-02 23:12 | XMS_ITS | Encounter Summary ---
Author Organization [facility] Address [address] [place] [address] Phone Care Team Providers Care Recreation Aide Name Role Phone Justen Gale MD Primary Care Provider David Roberts APRN, ARCHITECTURAL SALES CONSULTANT Unavailable Annel Rod MD Unavailable Reason for Visit * Reason Onset Date Comments Breathing Problem 08/07/2024 Muscle Pain 08/07/2024 Encounter Details Date Type Department Care Team (Late st Contact Info) Description 08/07/2024 Nurse Triage [facility] [address] [place] [address] Justen Gale MD #[address] [address] Breathing Problem; Muscle Pain Social History Tobacco [...] your home? Yes 08/06/2024 Social Connection and Isolation Panel Answer Date Recorded In a typical week, how many times do you talk on the phone with family, friends, or neighbors? More than three times a week 08/06/2024 How often do you get togethe r with friends or relatives? Patient declined 08/06/2024 How often do you attend chur ch or presybeterian services? More than 4 times per year 08/06/2024 Do you belong to any clubs o r organizations such as oriental orthodox groups, unions, fraternal or athletic groups, or [...] time in the past 12 m [facility], were you homeless or living in a [...] reports this was discussed with the front end software developer and provider was to be notified [...] Encouraged caller to bring cell phone and laborer pullet farm to contact EMS 911 if symptoms worsen [...] (e.g., disoriented, slurred speech) Protocols used: Breathing [id number] * Telephone Encounter - Neha Tomlinson - [...] Visit [facility]ology - [place] #2 [place] [address] Annel Rod MD #2 [facility] [address] [place] [address] 11/13/2024 2:00 PM CDT [facility] 1 [place] [address] Angelito Alegria, CHICKEN BUYER, ARCHITECTURAL SALES CONSULTANT #2 [facility] [address] [place] [address] Discharge Disposition: Discharged to home or Selfcare documented as of this encounter Visit Diagnoses Not on filedocumented in this encounter Additional Health Concerns Assessment Noted Time PHQ-9 Depression Total Score: 0 08/02/19 25 1:09 PM CDT documented as of this encounter Care Teams Recreation Aide Relationship Specialty Start Date End Date Justen Gale MD #2 [facility] [address] [place] [address] PCP - General Family Medicine 10/17/17 David Roberts APRN, ARCHITECTURAL SALES CONSULTANT #2 [place] [address] Nurse Practitioner Advanced Practice Nurse 01/31/22 Annel Rod MD #2 [facility] [address] [place] [address] Consulting Physician Endocrinology 07/01/22 documented as of this encounter
--- OUTSIDE RECORDS SUMMARY | 2024-10-02 23:12 | XMS_ITS | Encounter Summary ---
Author Organization [facility] Address [address] [place] [address] Phone Care Team Providers Care Stress Test Technician Name Role Phone Liu Jerez MD Unavailable [phone] Albert Corbin MD Unavailable Justen Gale MD Primary Care Provider Khris Arthur MD Unavailable [phone] Ko Melendez MD Unavailable John Paul Moyer MD Unavailable Annel Rod MD Unavailable Anali MARSHALL MD, Carlos M. Unavailable [phone] Encounter Details Date Type Department Care Team [...] on file Legal Sex Female 12:24 AM BASEBALL PLAYER Gender Identity Not on file Sexual Orientation [...] COVID: Recovered 02/10/2022 02/10/2022 06/10/2022 3:05 AM BASEBALL PLAYER Exposure, COVID-19 Comment:Added automatically based on COVID19 lab answers indicating exposure risk 02/11/2022 02/11/2022 02/15/2022 9:06 AM C DT COVID: Suspected 05/14/2022 05/14/2022 05/14/2022 10:41 AM BASEBALL PLAYER COVID: Suspected 06/07/2022 06/07/2022 06/07/2022 12:28 PM BASEBALL PLAYER COVID: Suspected 06/21/2022 06/21/2022 06/21/2022 2:12 AM BASEBALL PLAYER COVID: Suspected 10/05/2022 10/05/2022 10/05/2022 7:40 PM CDT COVID: Suspected 01/04/2024 01/04/2024 01/04/2024 10:30 PM CDT COVID: Suspected 02/14/2024 02/14/2024 02/15/2024 12:36 AM CDT COVID: Suspected 07/01/2024 07/01/2024 07/01/2024 2:53 PM CDT COVID: Suspected 07/01/2024 07/01/2024 07/02/2024 3:05 AM CDT documented as of this encounter Care Teams Stress Test Technician Relationship Specialty Start Date End Date Justen Gale MD 2 [facility] [address] [place] [address] PCP - General 10/09/17 Liu Jerez MD Consulting Physician Gastroenterology 07/28/17 [place] [address] [facility] [address] [place] [address] Consulting Physician Pulmonary Disease 08/03/17 [place] [address] [place] [address] [address] [place] [address] Medical Oncologist/Sealer Aircraft Medical Oncology 10/23/17 [place] [address] [address] Surgeon Orthopedic Surgery 10/23/17 [place] [address] [facility] [address] [place] [address] Consulting Physician Pain Management 10/23/17 [place] [address] [address] Referring Physician General Surgery 01/26/18 [place] [address] [facility] [address] [place] [address] Consulting Physician Neurology 01/26/18 documented as of this encounter
--- OUTSIDE RECORDS SUMMARY | 2024-10-02 23:12 | XMS_ITS | Encounter Summary ---
Author Organization [facility] Address [address] [place] [address] Phone Care Team Providers Care Visual Effects Editor Name Role Phone Justen Gale MD Primary Care Provider David Roberts APRN, UNIVERSAL GRINDER OPERATOR Unavailable Annel Rod MD Unavailable Reason for Visit * Reason Comments Medication Refill Encounter Details Date Type Department Care Team (Late st Contact Info) Description 10/24/2022 Refill [facility] Family Medicine [facility] #2 [place] [address] Pili Elkins APRN, UNIVERSAL GRINDER OPERATOR #[address] [address] Medication Refill Social History Tobacco [...] Visit [facility] Endocrinology [facility] #2 [place] [address] Annel Rod MD #[address] [address] 11/13/2024 2:00 PM CDT [facility] 1 [place] [address] Angelito Alegria, SUPERINTENDENT DRILLING AND PRODUCTION, UNIVERSAL GRINDER OPERATOR #2 [facility] [address] [place] [address] Discharge Disposition: Discharged to home or Selfcare documented as of this encounter Visit Diagnoses Diagnosis Essential hypertension Unspecified essential hypertension documented in this encounter Additional Health Concerns Infection Onset Date Last Indicated Resolved Time COVID - 19 08/01/2024 08/01/2024 08/01/2024 3:20 PM CDT Assessment Noted Time PHQ-9 Depression Total Score: 0 09/17/19 11:00 AM CDT documented as of this encounter Care Teams Visual Effects Editor Relationship Specialty Start Date End Date Justen Gale MD #[address] [address] PCP - General Family Medicine 10/17/17 David Roberts SUPERINTENDENT DRILLING AND PRODUCTION, UNIVERSAL GRINDER OPERATOR #2 [place] [address] Nurse Practitioner Advanced Practice Nurse 01/31/22 Annel Rod MD #[address] [address] Consulting Physician Endocrinology 07/01/22 documented as of this encounter
--- OUTSIDE RECORDS SUMMARY | 2024-10-02 23:12 | XMS_ITS | Encounter Summary ---
Author Organization [facility] Address [address] [place] [address] Phone Care Team Providers Care Student Affairs Dean Name Role Phone Lavonne Hathaway MD Primary Care Provider + [phone] Liu Jerez MD Unavailable [phone] Albert Corbin MD Unavailable [phone] Justen Gale MD Primary Care Provider + [phone] Lavonne Hathaway MD Primary Care Provider + [phone] Justen Gale MD Primary Care Provider + [phone] Khris Arthur MD Unavailable + [phone] Ko Melendez MD Unavailable [phone] John Paul Moyer MD Unavailable Annel Rod MD Unavailable Anali MARSHALL MD, Carlos M. Unavailable [phone] Encounter Details Date Type Department Care Team [...] on file Legal Sex Female 12:24 AM ABSENCE MANAGEMENT CONSULTANT Gender Identity Not on file Sexual [...] COVID: Recovered 02/10/2022 02/10/2022 06/10/2022 3:05 AM ABSENCE MANAGEMENT CONSULTANT Exposure, COVID-19 Comment:Added automatically based on COVID19 lab answers indicating exposure risk 02/11/2022 02/11/2022 02/15/2022 9:06 AM C DT COVID: Suspected 05/14/2022 05/14/2022 05/14/2022 10:41 AM ABSENCE MANAGEMENT CONSULTANT COVID: Suspected 06/07/2022 06/07/2022 06/07/2022 12:28 PM ABSENCE MANAGEMENT CONSULTANT COVID: Suspected 06/21/2022 06/21/2022 06/21/2022 2:12 AM ABSENCE MANAGEMENT CONSULTANT COVID: Suspected 10/05/2022 10/05/2022 10/05/2022 7:40 PM CDT COVID: Suspected 01/04/2024 01/04/2024 01/04/2024 10:30 PM CDT COVID: Suspected 02/14/2024 02/14/2024 02/15/2024 12:36 AM CDT COVID: Suspected 07/01/2024 07/01/2024 07/01/2024 2:53 PM CDT COVID: Suspected 07/01/2024 07/01/2024 07/02/2024 3:05 AM CDT documented as of this encounter Care Teams Student Affairs Dean Relationship Specialty Start Date End Date Lavonne Hathaway MD [address] [place] [address] [place] [address] PCP - General 08/16/16 08/17/17 Justen Gale MD 2 [facility] [address] [address] PCP - General 08/18/17 08/22/17 Lavonne Hathaway MD [address] [place] [address] [place] [address] PCP - General Family Medicine 08/23/17 10/08/17 Justen Gale MD 2 [facility] [place] [address] [address] PCP - General 10/09/17 Liu Jerez MD [address] [place] [address] [place] [address] Consulting Physician Gastroenterology 07/28/17 [place] [address] [facility] [address] [place] [address] Consulting Physician Pulmonary Disease 08/03/17 Khris Arthur MD [address] [facility] [address] [place] [address] Medical Oncologist/Food Sales Clerk Medical Oncology 10/23/17 [place] [address] [facility] [address] [place] [address] Surgeon Orthopedic Surgery 10/23/17 [place] [address] [facility] [address] [place] [address] Consulting Physician Pain Management 10/23/17 [place] [address] [facility] [address] [place] [address] Referring Physician General Surgery 01/26/18 [place] [address] [facility] [address] [place] [address] Consulting Physician Neurology 01/26/18 documented as of this encounter
--- OUTSIDE RECORDS SUMMARY | 2024-10-02 23:12 | XMS_ITS | Encounter Summary ---
Author Organization [facility] Address [address] [place] [address] Phone Care Team Providers Care Behavioral Health Consultant Name Role Phone Justen Gale MD Primary Care Provider David Roberts APRN, PECAN SHELLER Unavailable [phone] Annel Rod MD Unavailable Reason for Visit * Reason Onset Date Comments Medication Refill 08/06/2020 Encounter Details Date Type Department Care Team (Late st Contact Info) Description 08/06/2020 Refill [facility] #2 [facility] [place] [address] Justen Gale MD #[address] [address] Medication Refill Social History Tobacco Use Types [...] Outpatient Visits 2 weeks ago [facility] P[facility] Mueller APN, PECAN SHELLER 2 months ago Increased urinary frequency [facility] Pili Mueller APN, PECAN SHELLER 5 months ago Urinary frequency [facility] Pili Mueller APN, PECAN SHELLER 8 months ago Type 2 diabetes mellitus with diabetic polyneuropathy, with long- term current use of insulin (HCC) [facility] Pili Mueller APN, PECAN SHELLER 9 months ago Nausea [facility] Justen Urbano MD Upcoming Appointments Future Appointments In 6 days Pili Elkins APN, PECAN SHELLER [facility] AVIONICS REPAIR TECHNICIAN - Recent and Past Visits Recent Visits Date Type Provider Dept 07/20/20 Office Visit Pili Elkins APN, PECAN SHELLER [facility] 06/05/20 Office Visit Pili Elkins APN, NETTA [facility] 02/17/20 Office Visit Pili Elkins APN, NETTA [facility] [place] 12/03/19 Office Visit Pili Elkins APN, NETTA [facility] [place] 11/05/19 Telemedicine Justen Gale MD [facility] 07/25/19 Telemedicine [facility] visits within past 460 days with a meds authorizing provider and meeting all other requirements Future Appointments Date Type Provider Dept 08/12/20 Appointment Pili Elkins APN, CNP [facility] [place] Showing future appointments within next 90 days [...] Description 10/22/2024 11:15 AM CDT Office Visit [facility] - Endocrinology - [place] #2 [place] [address] Annel Rod MD #[address] [address] 11/13/2024 2:00 PM CDT Appointment [facility] Cardiology Services 1 [place] [address] Angelito Alegria ASSOCIATE JUVENILE COURT JUDGE, PECAN SHELLER #2 [facility] [address] [place] [address] Discharge Disposition: Discharged to home or Selfcare documented as of this encounter Visit Diagnoses Not on filedocumented in this encounter Additional Health Concerns Infection Onset Date Last Indicated Resolved Time COVID - 19 08/01/2024 08/01/2024 08/01/2024 3:20 PM CDT Assessment Noted Time PHQ-9 Depression Total Score: 0 07/21/19 3:00 PM CDT documented as of this encounter Care Teams Behavioral Health Consultant Relationship Specialty Start Date End Date Justen Gale MD #[address] [address] PCP - General Family Medicine 10/17/17 David Roberts APRN, PECAN SHELLER #2 [place] [address] Nurse Practitioner Advanced Practice Nurse 01/31/22 Annel Rod MD #[address] [address] Consulting Physician Endocrinology 07/01/22 documented as of this encounter
--- OUTSIDE RECORDS SUMMARY | 2024-10-02 23:12 | XMS_ITS | Encounter Summary ---
Author Organization [facility] Address [address] [place] [address] Phone Care Team Providers Care Charge Attendant Name Role Phone Justen Gale MD Primary Care Provider David Roberts APRN, RELAY ENGINEER Unavailable Annel Rod MD Unavailable Reason for Visit * Reason Onset Date Comments Pain 09/23/2024 Encounter Details Date Type Department Care Team (Late st Contact Info) Description 09/23/2024 Telephone [facility] [address] [place] [address] Justen Gale MD #[address] [address] Pain Social History Tobacco Use Types Packs/Day Years Used Date Smoking Tobacco: Never Smokeless Tobacco: Never Alcohol Use Standard Drinks/Week Comments No 0 (1 standard drink = 0.6 oz pur e alcohol) [facility] Utilities Answer Date Recorded In the past 12 months has [employer] electric, gas, oil, or water company threatened [...] How often do you attend chur or episcopal services? More than 4 times [...] Total Score - Questions 1-9 0 07/23 [facility] - [...] emergency room. RECOMMENDATION: Please advise Prefers a MyChart message back. * Telephone Encounter - Sabrina Ortega - 09/23/2024 3:14 PM CDT Symptom: Pain - Severe widespread - patient has RA Outcome: Transfer to sales service coordinator queue Reason: Caller denied all higher acuity questions The caller accepted this outcome. Caller Denied: * Chest pain * Headache * Eye pain * Abdominal pain * Genital pain documented in this encounter Plan of Treatment Upcoming Encounters Date Type Department Care Team (Late st Contact Info) Description 10/22/2024 11:15 AM CDT Office Visit [facility] #2 [place] [address] Annel Rod MD #2 [facility] [address] [place] [address] 11/13/2024 2:00 PM CDT [facility] 1 [place] [address] Angelito Alegria APRN, RELAY ENGINEER #2 [facility] [address] [place] [address] Discharge Disposition: Discharged to home or Selfcare documented as of this encounter Visit Diagnoses Not on filedocumented in this encounter Additional Health Concerns Assessment Noted Time PHQ-9 Depression Total Score: 0 08/02/19 25 1:09 PM CDT documented as of this encounter Care Teams Charge Attendant Relationship Specialty Start Date End Date Justen Gale MD #2 [facility] [address] [place] [address] PCP - General Family Medicine 10/17/17 David Roberts APRN, RELAY ENGINEER #2 [place] [address] Nurse Practitioner Advanced Practice Nurse 01/31/22 Annel Rod MD #2 [facility] [address] [place] [address] Consulting Physician Endocrinology 07/01/22 documented as of this encounter
--- OUTSIDE RECORDS SUMMARY | 2024-10-02 23:12 | XMS_ITS | Encounter Summary ---
Author Organization [facility] Address [address] [place] [address] Phone Care Team Providers Care Visual C Developer Name Role Phone Justen Gale MD Primary Care Provider David Roberts APRN, DISASTER RECOVERY SPECIALIST Unavailable Annel Rod MD Unavailable Reason for Visit * Reason Comments Medication Refill Encounter Details Date Type Department Care Team (Late st Contact Info) Description 02/07/2023 Refill [facility] Family [facility] #2 [place] [address] Catrina Quiñonez MD #2 [place] [address] Medication Refill Social History Tobacco Use Types [...] Quiñonez MD [facility] 09/16/22 Office Visit Plii Elkins APRN, CNP [facility] 07/05/22 Office Visit Pili Elkins APRN, CNP [facility] 05/02/22 Office Visit Justen Gale MD [facility] 03/03/22 Office Visit Pili Elkins APRN, NETTA [facility] Showing recent [...] [facility] - [place] #2 [place] [address] Annel Rod MD #[address] [address] 11/13/2024 2:00 PM CDT Appointment [facility] Cardiology Services 1 [place] [address] Angelito Alegria, CORPORATE TREASURY ANALYST, DISASTER RECOVERY SPECIALIST #[address] [address] Discharge Disposition: Discharged to home or Selfcare documented as of this encounter Visit Diagnoses Not on filedocumented in this encounter Additional Health Concerns Infection Onset Date Last Indicated Resolved Time COVID - 19 08/01/2024 08/01/2024 08/01/2024 3:20 PM CDT Assessment Noted Time PHQ-9 Depression Total Score: 8 01/18/20 2:24 PM CDT documented as of this encounter Care Teams Visual C Developer Relationship Specialty Start Date End Date Justen Gale MD #[address] [address] PCP - General Family Medicine 10/17/17 David Roberts CORPORATE TREASURY ANALYST, DISASTER RECOVERY SPECIALIST #2 [place] [address] Nurse Practitioner Advanced Practice Nurse 01/31/22 Annel Rod MD #[address] [address] Consulting Physician Endocrinology 07/01/22 documented as of this encounter
--- OUTSIDE RECORDS SUMMARY | 2024-10-02 23:12 | XMS_ITS | Encounter Summary ---
Author Organization [facility] Address [address] [place] [address] Phone Care Team Providers Care Material Damage Appraiser Name Role Phone Justen Gale MD Primary Care Provider [phone] David Roberts APRN, DISTRICT CLAIMS MANAGER Unavailable [phone] Annel Rod MD Unavailable Reason for Visit * Reason Comments Medication Refill Encounter Details Date Type Department Care Team (Late st Contact Info) Description 09/30/2023 Refill [facility] - [place] #2 [place] [address] Annel Rod MD #[address] [address] Medication Refill Social History Tobacco [...] Description 10/22/2024 11:15 AM CDT Office Visit [facility] - Endocrinology [facility] #2 [place] [address] Annel Rod MD #[address] [address] 11/13/2024 2:00 PM CDT [facility] 1 [place] [address] Angelito Alegria APRN, NETTA #[address] [address] Discharge Disposition: Discharged to home or Selfcare documented as of this encounter Visit Diagnoses Not on filedocumented in this encounter Additional Health Concerns Infection Onset Date Last Indicated Resolved Time COVID - 19 08/01/2024 08/01/2024 08/01/2024 3:20 PM CDT Assessment Noted Time PHQ-9 Depression Total Score: 8 01/18/20 2:24 PM CDT documented as of this encounter Care Teams Material Damage Appraiser Relationship Specialty Start Date End Date Justen Gale MD #[address] [place] [address] PCP - General Family Medicine 10/17/17 David oRberts APRN, DISTRICT CLAIMS MANAGER #2 [place] [address] Nurse Practitioner Advanced Practice Nurse 01/31/22 Annel Rod MD #[address] [address] Consulting Physician Endocrinology 07/01/22 documented as of this encounter
--- OUTSIDE RECORDS SUMMARY | 2024-10-02 23:12 | XMS_ITS | Encounter Summary ---
Author Organization [facility] Address [address] [place] [address] Phone Care Team Providers Care Outside Sales Account Manager Name Role Phone Justen Gale MD Primary Care Provider David Roberts APRN, SIGN SHOP SUPERVISOR Unavailable Annel Rod MD Unavailable Reason for Visit * Reason Comments Medication Refill Encounter Details Date Type Department Care Team (Late st Contact Info) Description 02/17/2021 Refill [facility] Family [facility] #2 [place] [address] Justen Gale MD #[address] [address] Medication Refill Social History Tobacco Use Types [...] [facility] 06/05/20 Office Visit Pili Elkins APRN, SIGN SHOP SUPERVISOR [facility] Showing recent visits within past 365 days and meeting all other requirements Future Appointments Date Type Provider Dept 03/02/21 Appointment Vince Hermosillo MD [facility] Showing future appointments within next 90 days and meeting all other requirements documented in this encounter Plan of Treatment Upcoming Encounters Date Type Department Care Team (Late st Contact Info) Description 10/22/2024 11:15 AM CDT Office Visit [facility] #2 [place] [address] Annel Rod MD #2 [facility] [address] [place] [address] 11/13/2024 2:00 PM CDT Appointment [facility] Cardiology Services 1 [place] [address] Angelito Alegria, SALES EFFECTIVENESS MANAGER, SIGN SHOP SUPERVISOR #2 [facility] [address] [place] [address] Discharge Disposition: Discharged to home or Selfcare documented as of this encounter Visit Diagnoses Not on filedocumented in this encounter Additional Health Concerns Infection Onset Date Last Indicated Resolved Time COVID - 19 08/01/2024 08/01/2024 08/01/2024 3:20 PM CDT Assessment Noted Time PHQ-9 Depression Total Score: 0 07/21/19 3:00 PM CDT documented as of this encounter Care Teams Outside Sales Account Manager Relationship Specialty Start Date End Date Justen Gale MD #[address] [address] PCP - General Family Medicine 10/17/17 David Roberts SALES EFFECTIVENESS MANAGER, SIGN SHOP SUPERVISOR #2 [place] [address] Nurse Practitioner Advanced Practice Nurse 01/31/22 Annel Rod MD #[address] [address] Consulting Physician Endocrinology 07/01/22 documented as of this encounter
--- OUTSIDE RECORDS SUMMARY | 2024-10-02 23:12 | XMS_ITS | Encounter Summary ---
Author Organization [facility] Address [address] [place] [address] Phone Care Team Providers Care Expander Machine Operator Name Role Phone Justen Gale MD Primary Care Provider David Roberts APRN, PROGRAMMING EQUIPMENT OPERATOR Unavailable Annel Rod MD Unavailable Reason for Visit * Reason Comments Medication Refill Encounter Details Date Type Department Care Team (Late st Contact Info) Description 07/14/2022 Refill [facility] Medicine [facility] #2 [place] [address] Justen Gale MD #[address] [address] Medication Refill Social History Tobacco Use Types [...] Visit [facility] - Endocrinology - [place] #2 [place] [address] Annel Rod MD #2 [facility] [address] [place] [address] 11/13/2024 2:00 PM CDT [facility]ment [facility] 1 [place] [address] Angelito Alegria APRN, PROGRAMMING EQUIPMENT OPERATOR #2 [facility] [address] [place] [address] Discharge Disposition: Discharged to home or Selfcare documented as of this encounter Visit Diagnoses Not on filedocumented in this encounter Additional Health Concerns Infection Onset Date Last Indicated Resolved Time COVID - 19 08/01/2024 08/01/2024 08/01/2024 3:20 PM CDT Assessment Noted Time PHQ-9 Depression Total Score: 0 07/21/19 21 3:00 PM CDT documented as of this encounter Care Teams Expander Machine Operator Relationship Specialty Start Date End Date Justen Gale MD #2 [facility] [address] [place] [address] PCP - General Family Medicine 10/17/17 David Roberts, FOREST LANDSCAPE ECOLOGY PROFESSOR, PROGRAMMING EQUIPMENT OPERATOR #2 [place] [address] Nurse Practitioner Advanced Practice Nurse 01/31/22 Annel Rod MD #2 [facility] [address] [place] [address] Consulting Physician Endocrinology 07/01/22 documented as of this encounter
--- OUTSIDE RECORDS SUMMARY | 2024-10-02 23:12 | XMS_ITS | Encounter Summary ---
Author Organization [facility] Address [address] [place] [address] Phone Care Team Providers Care Technical Photographer Name Role Phone Justen Gale MD Primary Care Provider David Roberts APRN, COAL TOWER OPERATOR Unavailable Annel Rod MD Unavailable Reason for Visit * Reason Onset Date Comments Sore Throat 06/29/2020 Encounter Details Date Type Department Care Team (Late st Contact Info) Description 06/29/2020 Telephone [facility] - [facility] [place] #2 [place] [address] Justen Gale MD #[address] [address] Sore Throat Social History Tobacco Use Types [...] COVID-19? No / Unsure 06/29/2020 8:43 AM R&D ENGINEER documented as of this encounter Miscellaneous Notes * Telephone Encounter - Gail Lucero RN - 06/29/2020 3:53 PM CST Attempted to call mailbox is full. Pt does not need testing R&D ENGINEER * Telephone Encounter - Vince Hermosillo MD - 06/29/2020 3:13 PM CST No covid testing needed. If the er thought that it was warranted then they would have done this. R&D ENGINEER * Telephone Encounter - Marlys Sorensen RN - 06/29/2020 8:36 AM CST Patient calling. Patient is calling to schedule Hospital/ED/Prompt-Care follow up appointment. Hospital/ED/Prompt-Care Site: [facility] ED Records Requested: Yes Reason [...] f/up and yearly PAP appointments? Please advise. R&D ENGINEER documented in this encounter Plan of Treatment Upcoming Encounters Date Type Department Care Team (Late st Contact Info) Description 10/22/2024 11:15 AM CDT Office Visit [facility] Endocrinology - [place] #2 [place] [address] Annel Rod MD #2 [facility] [address] [place] [address] 11/13/2024 2:00 PM CDT [facility]ointment [facility] 1 [place] [address] Angelito Alegria, SATELLITE INSTRUCTION FACILITATOR, COAL TOWER OPERATOR #2 [facility] [address] [place] [address] Discharge Disposition: Discharged to home or Selfcare documented as of this encounter Visit Diagnoses Not on filedocumented in this encounter Additional Health Concerns Infection Onset Date Last Indicated Resolved Time COVID - 19 08/01/2024 08/01/2024 08/01/2024 3:20 PM CDT Assessment Noted Time PHQ-9 Depression Total Score: 0 09/08/19 19 1:00 PM CDT documented as of this encounter Care Teams Technical Photographer Relationship Specialty Start Date End Date Justen Gale MD #2 [facility] [address] [place] [address] PCP - General Family Medicine 10/17/17 David Roberts APRN, COAL TOWER OPERATOR #2 [place] [address] Nurse Practitioner Advanced Practice Nurse 01/31/22 Annel Rod MD #2 [facility] [address] [place] [address] Consulting Physician Endocrinology 07/01/22 documented as of this encounter
--- OUTSIDE RECORDS SUMMARY | 2024-10-02 23:12 | XMS_ITS | Referral Summary ---
Author Organization [facility] Address [address] [place] [address] Care Team Providers Care Oil Heat Technician Name Role Phone Liu Jerez MD Unavailable [phone] Albert Corbin MD Unavailable [phone] Justen Gale MD Primary Care Provider Khris Arthur MD Unavailable [phone] Ko Melendez MD Unavailable John Paul Moyer [...] 05/22/2024 Assessment & Plan (05/26/2024 10:08 AM INSOLE TOE SNIPPING MACHINE OPERATOR): Presenting with urinary symptoms of right [...] 05/22/2024 Assessment & Plan (05/25/2024 7:52 AM INSOLE TOE SNIPPING MACHINE OPERATOR): Hx of breast cancer c/b DVT/bilateral [...] 05/22/2024 Assessment & Plan (05/22/2024 1:14 PM INSOLE TOE SNIPPING MACHINE OPERATOR): -long-standing chronic back pain -CT L [...] 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) 2021 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) use 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 inhibitors 10/17/2019 [...] complication, without long-term current use of insulin ([facility]) 10/23/2017 Assessment & Plan (10/23/2017 2:06 AM [...] 10/13/2017 Assessment & Plan (05/22/2024 12:29 PM INSOLE TOE SNIPPING MACHINE OPERATOR): -Hx stage II, ER positive, HER2 [...] 08/01/2017 Assessment & Plan (05/22/2024 12:33 PM INSOLE TOE SNIPPING MACHINE OPERATOR): -Hx LUL -Hospital provided CPAP ordered History of DVT (deep vein thrombosis) 08/01/2017 History of pulmonary embolism 08/01/2017 Generalized weakness 07/27/2017 Dyspnea 07/27/2017 Unintentional weight loss 07/27/2017 Acute cystitis without hematuria 07/27/2017 Nausea and vomiting 07/26/2017 Overview (07/28/2017): Added automatically from request for surgery [id number] Pulmonary embolism 08/09/2016 Assessment & Plan (10/23/2017 2:05 AM CDT): On Rivaroxaban Lymphedema of left upper extremity 08/09/2016 Assessment & Plan (05/25/2024 7:53 AM INSOLE TOE SNIPPING MACHINE OPERATOR): S/p L axillary lymph node dissection [...] syndrome Assessment & Plan (05/22/2024 11:18 AM INSOLE TOE SNIPPING MACHINE OPERATOR): -continue home Requip 5mg nightly Pain of lower extremity 03/12/2013 Overview (07/29/2016): Leg pain Essential hypertension Assessment & Plan (05/23/2024 10:42 AM INSOLE TOE SNIPPING MACHINE OPERATOR): -Chart history of HTN but not on meds -BP elevated on admission, likely some pain contributing -Monitor closely once pain under adequate control, discussed following up with PCP for this Chronic anticoagulation Restless leg syndrome 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 Type 2 diabetes mellitus without complication Assessment & Plan (05/24/2024 1:39 PM INSOLE TOE SNIPPING MACHINE OPERATOR): -Last Ha1c 8.4 in 2023, repeat [...] In the past 12 months has e [employer], gas, oil, or water company threatened to [...] do you attend chur or mosque services? More than 4 times per year [...] in the past 12 m [facility], were you homeless or living [...] file Legal Sex Female 12:24 AM INSOLE TOE SNIPPING MACHINE OPERATOR Gender Identity Not on file [...] CDT HEMOGLOBIN A1C STAT 05/21/2024 4:20 PM INSOLE TOE SNIPPING MACHINE OPERATOR LIPID PANEL STAT 05/21/2024 4:20 PM INSOLE TOE SNIPPING MACHINE OPERATOR DEXA AXIAL SKELETON BONE DENSITY 1 OR [...] was last reviewed 2021. Testing performed by: [facility], [address] [place] [address]., [address] Blood 07/01/2024 2:02 PM CDT 07/01/2024 2:12 PM CDT us Ilana Stevens MD LAB BLOOD ORDERABLES F inal Result [facility] [address] [facility] Department [place] [address] * (ABNORMAL) Hemoglobin A1c (05/21/2024 4:20 PM INSOLE TOE SNIPPING MACHINE OPERATOR) Hgb A1C 8.7(H) 4.0 - 5.6 % Estimated Average Glucose 203 mg/dL [facility] Comment: The ADA recommends reporting an estimated Average Glucose (eAG) with all Hemoglobin A1c results using the equation derived from a study of 507 normal and diabetic adults. Minority populations were underrepresented and children were not included. (Diabetes Care 2020; 43(S1): S66-S76). The eAG is not equivalent to a fasting glucose. Blood 05/21/2024 4:20 PM INSOLE TOE SNIPPING MACHINE OPERATOR 05/21/2024 4:55 PM INSOLE TOE SNIPPING MACHINE OPERATOR us Leo Henry MD LAB BLOOD ORDERABLES Final Result [facility] Department [place] [address] * (ABNORMAL) Lipid panel (05/21/2024 4:20 PM INSOLE TOE SNIPPING MACHINE OPERATOR) Cholesterol 205(H) 30 - 199 mg/dL [...] revised on 2017. Triglycerides 92 <=149 mg/dL [facility] Comment: Interpretive Data Ages < or [...] 2017. HDL 55 >=40 mg/dL [facility] Comment: Interpretive Data Ages < or [...] LDL, calculated 134(H) <=129 mg/dL [facility] Comment: Interpretive Data Ages < or [...] 2023. Non-HDL Cholesterol 150 mg/dL [facility] Comment: Interpretive Data Ages < or [...] revised on 2017. Chol/HDL ratio 4 [facility] Blood 05/21/2024 4:20 PM INSOLE TOE SNIPPING MACHINE OPERATOR 05/21/2024 4:50 PM INSOLE TOE SNIPPING MACHINE OPERATOR Narrative [facility] - 05/22/2024 4:17 PM INSOLE TOE SNIPPING MACHINE OPERATOR Reflex us Leo Henry MD LAB BLOOD ORDERABLES Final Result [facility] Department [place] [address] * Dexa Axial Skeleton Bone Density 1 or 2 Site (08/02/2022 10:53 AM CDT) Anatomical Region Laterality Modality Body N/A Radiographic Lizeth ging Narrative 08/02/2022 3:34 PM CDT Patient Name: Karly Marques Date of : 1955 Date of scan: 08/02/2022 Bone mineral density was performed on a Holo[employer] Discovery Densitometer. Based on machine cross-calibration and [...] by the International Society of Clinical Densitometry. [id number] Khris Arthur MD [facility] DXA PROCEDURES F inal Result * COLONOSCOPY [...] this written report and agrees with it. [facility]# Date Time Exam [id number] Aug 19, 2016 14:27:00 [facility] [address] Diag Mamm, inc CAD, unilat L Technologist(s): Carla Harris; ; [id number] Aug 19, 2016 15:39:00 [facility] [address] Breast US unilateral, ltd L ACC# Date Time Exam [id number] Aug 19, 2016 14:27:00 [facility] [address] Diag Mamm, inc CAD, unilat L Technologist(s): Carla Harris; ; [id number] Aug 19, 2016 15:39:00 [facility] [address] Breast US unilateral, ltd L EXAMINATION: LEFT [...] SARABIA M.D. on Aug 19 2016 4:20P [id number] Procedure Note Miscellaneous, Not In File / Provider, Historical, MD - 09/17/2016 ANTHONY SARABIA M.D. JUDY RINCON M.D. FINAL REPORT The radiology attending physician has personally reviewed this study, and has reviewed and/or edited this written report and agrees with it. ACC# Date Time Exam [id number] Aug 19, 2016 14:27:00 [facility] [address] Diag Mamm, inc CAD, unilat L Technologist(s): Carla Harris; ; [id number] Aug 19, 2016 15:39:00 [facility] [address] Breast US unilateral, ltd L ACC# Date Time Exam [id number] Aug 19, 2016 14:27:00 [facility] [address] Diag Mamm, inc CAD, unilat L Technologist(s): Carla Harris; ; [id number] Aug 19, 2016 15:39:00 C [id number] Breast US unilateral, ltd L EXAMINATION: LEFT [...] This document has been electronically signed by: NATHONY SARABIA M.D. on Aug 19 2016 4:20P [id number] us Not In File Miscellaneous IMG MAMMO PROCEDURES F inal Result from Last 3 Months or Most Recently Relevant to Health Maintenance Insurance [facility] MEDICARE ADVANTAGE [facility] MEDICARE AD[facility] Address: [address] [address] [place] [address] [employer] MEDICARE ADVANTAGE Advance Directives For more information, please contact: [phone] Documents on File Type Date Recorded Patient Communications Administrator Expl anation ADVANCE DIRECTIVE 12/23/2021 2:49 PM Power of Internal Medicine Hospitalist-Medical ADVANCE DIRECTIVE 12/23/2021 2:49 PM Living Will [...] First Alternate Health Care Agent Care Teams Oil Heat Technician Relationship Specialty Start Date End Date Justen Gale MD 2 [facility] [address] [place] [address] PCP - General 10/09/17 Liu Jerez MD Consulting Physician Gastroenterology 07/28/[address] [place] [address] [facility] [address] [place] [address] Consulting Physician Pulmonary Disease 08/03/17 Khris Arthur MD [address] [facility] [address] [place] [address] Medical Oncologist/Frame Stripper And Crusher Medical Oncology 10/23/[address] [place] [address] [facility] [address] [place] [address] Surgeon Orthopedic Surgery 10/23/17 [place] [address] [facility] [address] [place] [address] Consulting Physician Pain Management 10/23/[address] [place] [address] [facility] [address] [place] [address] Referring Physician General Surgery 01/26/18 [place] [address] [facility] [address] [place] [address] Consulting Physician Neurology 01/26/18
--- OUTSIDE RECORDS SUMMARY | 2024-10-02 23:12 | XMS_ITS | Encounter Summary ---
Author Organization [facility] Address [address] [place] [address] Phone Care Team Providers Care Floor Assembler Name Role Phone Justen Gale MD Primary Care Provider David Roberts APRN, CAST IRON DRAIN PIPE LAYER Unavailable Annel Rod MD Unavailable Reason for Visit * Reason Comments Medication Refill Encounter Details Date Type Department Care Team (Late st Contact Info) Description 07/06/2023 Refill [facility] - Family [facility] #2 [place] [phone] Justen Gale MD #[address] [address] Medication Refill Social History Tobacco Use Types [...] AM CDT Medication[facility]) [facility] Medication Refill Standing Order [...] Dept 06/27/23 Office Visit Justen Gale MD [facility] [place] 01/17/23 Office Visit Catrina Quiñonez MD [facility] [place] Showing recent visits within past 270 [...] Description 10/22/2024 11:15 AM CDT Office Visit [facility] - Endocrinology - [place] #[address] [place] [address] Annel Rod MD #[address] [facility] [address] [place] [address] 11/13/2024 2:00 PM CDT Appointment [facility] Cardiology Services 1 [place] [address] Angelito Alegria, SILK CREPE MACHINE OPERATOR, CAST IRON DRAIN PIPE LAYER #2 [facility] [address] [place] [address] Discharge Disposition: Discharged to home or Selfcare documented as of this encounter Visit Diagnoses Not on filedocumented in this encounter Additional Health Concerns Infection Onset Date Last Indicated Resolved Time COVID - 19 08/01/2024 08/01/2024 08/01/2024 3:20 PM CDT Assessment Noted Time PHQ-9 Depression Total Score: 8 01/18/20 23 2:24 PM CDT documented as of this encounter Care Teams Floor Assembler Relationship Specialty Start Date End Date Justen Gale MD #[address] [address] PCP - General Family Medicine 10/17/17 David Roberts APRN, CAST IRON DRAIN PIPE LAYER #2 [place] [address] Nurse Practitioner Advanced Practice Nurse 01/31/22 Annel Rod MD #[address] [address] Consulting Physician Endocrinology 07/01/22 documented as of this encounter
--- OUTSIDE RECORDS SUMMARY | 2024-10-02 23:12 | XMS_ITS | Clinical Summary ---
Author Organization [facility] Address [address] [place] [address] Phone Care Team Providers Care Milled Lumber Grader Name Role Phone Justen Gale MD Primary Care Provider [phone] Allergies Active Allergy Reactions Criticality Noted Date [...] - 6.0 % 09/29/2017 10:28 AM CDT [employer] [facility] EST. AVG GLUCOSE, A1C 186 mg/dL 09/29/2017 10:28 AM CDT [employer] [facility] Blood Venipuncture / Unknown 09/28/2017 8:41 PM CDT 09/28/2017 8:46 PM CDT Narrative [facility] LABORATORY [facility] - 09/29/2017 10:28 AM CDT HGB A1C INTERPRETATION NORMAL: <5.7% PRE-DIABETES: 5.7 - 6.4% DIABETES: 6.5% OR GREATER us Francisco Castaneda MD CHEMISTRY ORDERABLES Final Resul t [facility] [employer] [facility]# [id number] [address] [facility] [place] [address] * (ABNORMAL) LIPID PANEL (09/28/2017 8:41 PM CDT) CHOLESTEROL 174 <200 mg/dL 09/30/2017 2:45 AM CDT [facility] [employer] [facility] TRIGLYCERIDE 109 <150 mg/dL 09/30/2017 2:45 AM CDT [facility] [employer] [facility] HDL 45 40 - 59 mg/dL 09/30/2017 2:45 AM CDT [facility] [employer] [facility] LDL CALCULATED 107(H) <100 mg/dL 09/30/2017 2:45 AM CDT [facility] [employer] [facility] NON-HDL CHOLESTEROL 129 <130 mg/dL 09/30/2017 2:45 AM CDT [facility] [employer] [facility] Blood Venipuncture / Unknown 09/28/2017 8:41 PM CDT 09/28/2017 8:46 PM CDT Narrative [facility] - 09/30/2017 2:45 AM CDT TOTAL CHOLESTEROL [...] Castaneda MD CHEMISTRY ORDERABLES Final Resul t [facility] [employer] [facility] [id number] [address] [facility] [place] [place] [id number] from Last 3 Months or Most Recently Relevant to Health Maintenance Insurance Advance Directives For more information, please contact: [phone] * Full Code (Latest Code Status on File) Date Activated Date Inactivated Comments 09/29/2017 7:45 AM 09/30/2017 9:14 PM * Full Code Date Activated Date Inactivated Comments 09/29/2017 1:25 AM 09/29/2017 7:45 AM Care Teams Milled Lumber Grader Relationship Specialty Start Date End Date Justen Gale MD [address] [address] [place] [address] PCP - General Cardiovascular Disease 09/14/17
--- OUTSIDE RECORDS SUMMARY | 2024-10-02 23:12 | XMS_ITS | Encounter Summary ---
Author Organization [facility] Address [address] [place] [address] Phone Care Team Providers Care Propagation Worker Name Role Phone Justen Gale MD Primary Care Provider David Roberts APRN, DAIRY CATTLE FARM WORKER Unavailable [phone] Annel Rod MD Unavailable Reason for Visit * Reason Onset Date Comments Advice Only 08/19/2024 Follow-up 08/19/2024 Encounter Details Date Type Department Care Team (Late st Contact Info) Description 08/19/2024 Telephone [facility] - [facility] #[address] [place] [address] Justen Gale MD [address] [address] Advice Only; Follow-up Social History Tobacco Use Types Packs/Day Years Used Date Smoking Tobacco: Never Smokeless Tobacco: Never Alcohol Use Standard Drinks/Week Comments No 0 (1 standard drink = 0.6 oz pur e alcohol) [facility] Utilities Answer Date Recorded In the [...] Total Score - Questions 1-9 0 07/23 [place] [facility] - Occupational Stress Questionnaire Answer [...] in the past 12 m [facility], were you homeless or living [...] visit * Telephone Encounter - Angelito Alegria, EPIDEMIOLOGY INTERN, DAIRY CATTLE FARM WORKER - 08/19/2024 9:04 AM CDT Forwarding * Telephone Encounter - Isaura Weiss RN - 08/19/2024 8:37 AM CDT Situation: Strep throat follow up Background: Patient contacting PCP office. Patient was seen in ED on 08/09 and 08/12 in [place] (records in chart). Diagnosed with strep. Assessment: [...] CDT Symptom: Sore Throat Outcome: Transfer to cesspool cleaner queue Reason: Caller denied all higher acuity questions The caller accepted this outcome. Caller Denied: * Struggling for each breath (severe trouble breathing) * Can't swallow saliva (drooling) documented in this encounter Plan of Treatment Upcoming Encounters Date Type Department Care Team (Late st Contact Info) Description 10/22/2024 11:15 AM CDT [facility] Visit [facility] End[facility]ology - [place] #2 [place] [address] Annel Rod MD #[address] [address] 11/13/2024 2:00 PM CDT Appointment [facility] 1 [place] [address] Angelito Alegria, EPIDEMIOLOGY INTERN, DAIRY CATTLE FARM WORKER #[address] [address] Discharge Disposition: Discharged to home or Selfcare documented as of this encounter Visit Diagnoses Not on filedocumented in this encounter Additional Health Concerns Assessment Noted Time PHQ-9 Depression Total Score: 0 08/02/19 25 1:09 PM CDT documented as of this encounter Care Teams Propagation Worker Relationship Specialty Start Date End Date Justen Gale MD #2 [facility] [address] [place] [address] PCP - General Family Medicine 10/17/17 David Roberts APRN, DAIRY CATTLE FARM WORKER #2 [place] [address] Nurse Practitioner Advanced Practice Nurse 01/31/22 Annel Rod MD #[address] [address] Consulting Physician Endocrinology 07/01/22 documented as of this encounter
--- OUTSIDE RECORDS SUMMARY | 2024-10-02 23:12 | XMS_ITS | CONTINUITY OF CARE DOCUMENT ---
Author Name ayesha, ayesha Address Unknown Organization [facility] Address [address] [place] [address] Phone [phone] Care Team Providers Care Eap Counselor Name Role Phone Yamilet DURÁN, Maico Unavailable [phone] ALANIS DURÁN, BRIDGETT Unavailable [phone] ALLISON DURÁN, CLARISSE Unavailable PROBLEMS Condition Status Date Provider Notes Shortness of breath active Ivory Rodriguez Palpitations active Radha Seals INSURANCE PROVIDERS Payer name Policy type / Coverage type [place] red democrat ID UHC MEDICARE COMPLETE HMO Other [id number] [facility] Medicaid 2 [id number] HISTORY OF PROCEDURES Procedure Date Procedure Name Provider Procedure Notes S tatus Stress EKG Carmine Silverio MD complet ed Regadenoson, 4 units Sergey Saldana MD completed Cardiolite, 2 units Sergey Saldana MD completed SPECT Images Carmine Silverio MD compl eted Holter, 24 or 48 Maico Woodard MD co mpleted
--- OUTSIDE RECORDS SUMMARY | 2024-10-02 23:12 | XMS_ITS | Patient Health Record ---
Author Organization [facility] Address [address] [facility] [address] [place] [address] Care Team Providers Care Technical Assistance Consultant Name Role Phone Yo DURÁN, Lavonne Primary Care Provider Unavail able Reason For Referral No Information Plan Of Treatment No Information Insurance Providers Payer Name Payer Address Payer Phone Subscriber Number Group Number Insured Name Patient Relationship to Insured Coverage Start Date Coverage End Date [facility] [employer] [address] [address] [place], [place] [id number] Karly Marques Self - patient is the insured
--- OUTSIDE RECORDS SUMMARY | 2024-10-02 23:12 | XMS_ITS | Encounter Summary ---
Author Organization [facility] Address [address] [place] [address] Phone Care Team Providers Care Window Trimmer Name Role Phone Justen Gale MD Primary Care Provider [phone] David Roberts APRN, RETAIL PRODUCT ADVISOR Unavailable Annel Rod MD Unavailable Reason for Visit * Reason Comments Medication Refill Encounter Details Date Type Department Care Team (Late st Contact Info) Description 07/12/2022 Refill [facility] Family Medicine [facility] #2 [place] [address] Justen Gale MD #[address] [address] Medication Refill Social History Tobacco Use Types [...] 07/05/22 Office Visit Pili Elkins APRN, NETTA [facility] [place] 05/02/22 Office Visit Justen Gale MD [facility] [place] 03/03/22 Office Visit Pili Elkins APRN, RETAIL PRODUCT ADVISOR [facility] [place] 01/03/22 Office Visit Dannielle Berg PAC [facility] [place] 12/07/21 Office Visit Pili Elkins APRN, NETTA [facility] 11/09/21 Office Visit Pili Elkins APRN, NETTA [facility] [place] 10/08/21 Office Visit Angelito Alegria APRN, NETTA [facility] [place] 08/30/21 Office Visit Justen Gale MD [facility] Showing recent visits within past 365 days [...] - Endocrinology [facility] #2 [place] [address] Annel Rod MD #[address] [address] 11/13/2024 2:00 PM CDT [facility]ment [facility] 1 [place] [address] Angelito Alegria APRN, RETAIL PRODUCT ADVISOR #[address] [address] Discharge Disposition: Discharged to home or Selfcare documented as of this encounter Visit Diagnoses Not on filedocumented in this encounter Additional Health Concerns Infection Onset Date Last Indicated Resolved Time COVID - 19 08/01/2024 08/01/2024 08/01/2024 3:20 PM CDT Assessment Noted Time PHQ-9 Depression Total Score: 0 07/21/19 3:00 PM CDT documented as of this encounter Care Teams Window Trimmer Relationship Specialty Start Date End Date Justen Gale MD #[address] [address] PCP - General Family Medicine 10/17/17 David Roberts APRN, RETAIL PRODUCT ADVISOR #2 [place] [address] Nurse Practitioner Advanced Practice Nurse 01/31/22 Annel Rod MD #[address] [address] Consulting Physician Endocrinology 07/01/22 documented as of this encounter
--- OUTSIDE RECORDS SUMMARY | 2024-10-02 23:12 | XMS_ITS | Encounter Summary ---
Author Organization [facility] Address [address] [place] [address] Phone Care Team Providers Care Varnish Maker Helper Name Role Phone Justen Gale MD Primary Care Provider [phone] David Roberts APRN, FORGE OPERATOR Unavailable [phone] Annel Rod MD Unavailable Reason for Visit * Reason Comments Medication Refill Encounter Details Date Type Department Care Team (Late st Contact Info) Description 03/02/2023 Refill [facility] - Family [facility] #2 [place] [phone] Justen Gale MD #[address] [address] Medication Refill Social History Tobacco Use Types [...] Tamika Villarreal RN - 03/02/2023 8:51 AM SHRIMP TRAWLER CAPTAIN Medication failed the protocol, provider to review [...] Dept 01/17/23 Office Visit Catrina Quiñonez MD [facility] 09/16/22 Office Visit Pili Elkins APRN, CNP [facility] 07/05/22 Office Visit Pili Elkins APRN, NETTA [facility] 05/02/22 Office Visit Justen Gale MD [facility] 03/03/22 Office Visit Pili Elkins APRN, NETTA [facility] Showing recent visits within past 365 days and meeting all other requirements Future Appointments No visits were found meeting these conditions. Showing future appointments within next 90 days and meeting all other requirements MP TRAWLER CAPTAIN documented in this encounter Plan of Treatment Upcoming Encounters Date Type Department Care Team (Late st Contact Info) Description 10/22/2024 11:15 AM CDT Office Visit [facility] - Endocrinology - [place] #2 [place] [address] Annel Rod MD #[address] [phone] 11/13/2024 2:00 PM CDT Appointment [facility] Cardiology Services 1 [place] [address] Angelito Alegria, NUCLEAR RADIOLOGIST, FORGE OPERATOR #[address] [address] Discharge Disposition: Discharged to home or Selfcare documented as of this encounter Visit Diagnoses Not on filedocumented in this encounter Additional Health Concerns Infection Onset Date Last Indicated Resolved Time COVID - 19 08/01/2024 08/01/2024 08/01/2024 3:20 PM CDT Assessment Noted Time PHQ-9 Depression Total Score: 8 01/18/20 2:24 PM CDT documented as of this encounter Care Teams Varnish Maker Helper Relationship Specialty Start Date End Date Justen Gale MD #[address] [address] PCP - General Family Medicine 10/17/17 David Roberts APRN, FORGE OPERATOR #2 [place] [address] Nurse Practitioner Advanced Practice Nurse 01/31/22 Annel Rod MD #[address] [address] Consulting Physician Endocrinology 07/01/22 documented as of this encounter
--- OUTSIDE RECORDS SUMMARY | 2024-10-02 23:12 | XMS_ITS | Encounter Summary ---
Author Organization [facility] Address [address] [place] [address] Phone Care Team Providers Care Manager Recruitment Name Role Phone Justen Gale MD Primary Care Provider David Roberts APRN, HOT DIE PRESS FEEDER Unavailable Annel Rod MD Unavailable Reason for Visit * Reason Comments Medication Refill Encounter Details Date Type Department Care Team (Late st Contact Info) Description 02/07/2020 Refill [facility] Call Center [address] [place] [address] Justen Gale MD #[address] [address] Medication Refill Social History Tobacco Use Types [...] Visit [facility] - Endocrinology - [place] #2 [place] [address] Annel Rod MD #[address] [address] 11/13/2024 2:00 PM CDT [facility] 1 [place] [address] Angelito Alegria APRN, HOT DIE PRESS FEEDER #2 [facility] [address] [place] [address] Discharge Disposition: Discharged to home or Selfcare documented as of this encounter Visit Diagnoses Not on filedocumented in this encounter Additional Health Concerns Infection Onset Date Last Indicated Resolved Time COVID - 19 08/01/2024 08/01/2024 08/01/2024 3:20 PM CDT Assessment Noted Time PHQ-9 Depression Total Score: 0 09/08/19 1:00 PM CDT documented as of this encounter Care Teams Manager Recruitment Relationship Specialty Start Date End Date Justen Gale MD #[address] [address] PCP - General Family Medicine 10/17/17 David Roberts APRN, NETTA #2 [facility] [place] [address] Nurse Practitioner Advanced Practice Nurse 01/31/22 Annel Rod MD #[address] [address] Consulting Physician Endocrinology 07/01/22 documented as of this encounter
--- OUTSIDE RECORDS SUMMARY | 2024-10-02 23:12 | XMS_ITS | Encounter Summary ---
Author Organization [facility] Address [address] [place] [address] Phone Care Team Providers Care Net Maker Name Role Phone Justen Gale MD Primary Care Provider David Roberts APRN, KNOCKUP WORKER Unavailable Annel Rod MD Unavailable Encounter Details Date Type Department Care Team (Late st Contact Info) Description 06/05/2020 [facility] 1 [place] [address] Pili Elkins APRN, KNOCKUP WORKER #[address] [address] Frequency of micturition Social History [...] COVID-19? No / Unsure 2020 11:37 AM FRAME BUILDER documented as of this encounter Plan of Treatment Upcoming Encounters Date Type Department Care Team (Late st Contact Info) Description 10/22/2024 11:15 AM CDT Office Visit [facility] - Endocrinology - [place] #2 [place] [address] Annel Rod MD #2 [facility] [address] [place] [address] 11/13/2024 2:00 PM CDT [facility] 1 [place] [address] Angelito Alegria, ZAMZAM, KNOCKUP WORKER #2 [facility] [address] [place] [address] Discharge Disposition: Discharged to home or Selfcare documented as of this encounter Procedures Procedure Name Priority Date/Time Associated Diagnosis Comments URINALYSIS REFLEX IF INDICATED BY ABNORMAL RESULTS Routine 06/05/2020 4:45 PM FRAME BUILDER Frequency of micturition documented in this encounter Results * (ABNORMAL) URINALYSIS REFLEX IF INDICATED BY ABNORMAL RESULTS (06/05/2020 4:45 PM FRAME BUILDER) SPECIFIC GRAVITY 1.020 1.003 - 1.030 06/05/2020 5:19 PM FRAME BUILDER [facility] URINE PH 5.0 5.0 - 9.0 06/05/2020 5:19 PM FRAME BUILDER [facility] WBC ESTERASE Negative Negative 06/05/2020 5:19 PM FRAME BUILDER [facility] NITRITE Negative Negative 06/05/2020 5:19 PM FRAME BUILDER [facility] PROTEIN, RANDOM URINE Negative Negative 06/05/2020 5:19 PM FRAME BUILDER [facility] URINE GLUCOSE, QUAL Negative Negative 06/05/2020 5:19 PM FRAME BUILDER [facility] URINE KETONES Negative Negative 06/05/2020 5:19 PM FRAME BUILDER [facility] UROBILINOGEN Normal Normal mg/dL 06/05/2020 5:19 PM FRAME BUILDER [facility] URINE BILIRUBIN Negative Negative 5:19 PM FRAME BUILDER [facility] URINE BLOOD 25 /uL(A) Negative leandro/ul 06/05/2020 5:19 PM FRAME BUILDER [facility] URINALYSIS COLOR Yellow 06/05/19 5:19 PM FRAME BUILDER [facility] URINALYSIS CLARITY Clear 06/05/2020 5:19 PM FRAME BUILDER [facility] WBC (Urine) 0-5 Negative, 0-5 /hpf 06/05/2020 5:19 PM FRAME BUILDER [facility] URINE RBC'S 3-5(A) Negative, 0-2 /hpf 06/05/2020 5:19 PM FRAME BUILDER [facility] EPITHELIAL CELLS Small amount /lpf 2020 5:19 PM FRAME BUILDER [facility] BACTERIA, URINE Few(A) Negative /hpf 06/05/2020 5:19 PM FRAME BUILDER [facility] Urine URINE SPECIMEN / Unknown Non-Phlebotomy Collection / Unknown 06/05/2020 4:45 PM FRAME BUILDER 06/05/2020 5:00 PM FRAME BUILDER us Pili Elkins HOMELAND SECURITY PROGRAM SPECIALIST, KNOCKUP WORKER URINE ORDERABLES Fin al Result [facility] #1 [place] [address] documented in this encounter Visit Diagnoses Diagnosis Frequency of micturition Urinary frequency documented in this encounter Additional Health Concerns Infection Onset Date Last Indicated Resolved Time COVID - 19 08/01/2024 08/01/2024 08/01/2024 3:20 PM CDT Assessment Noted Time PHQ-9 Depression Total Score: 0 09/08/19 19 1:00 PM CDT documented as of this encounter Care Teams Net Maker Relationship Specialty Start Date End Date Justen Gale MD #2 [facility] [address] [place] [address] PCP - General Family Medicine 10/17/17 David Roberts, HOMELAND SECURITY PROGRAM SPECIALIST, KNOCKUP WORKER #2 [place] [address] Nurse Practitioner Advanced Practice Nurse 01/31/22 Annel Rod MD #2 [facility] [address] [place] [address] Consulting Physician Endocrinology 07/01/22 documented as of this encounter
--- OUTSIDE RECORDS SUMMARY | 2024-10-02 23:12 | XMS_ITS | Encounter Summary ---
Author Organization [facility] Address [address] [place] [address] Phone Care Team Providers Care Reservoir Engineering Advisor Name Role Phone Justen Gale MD Primary Care Provider David Roberts APRN, TAIL DOGGER Unavailable [phone] Annel Rod MD Unavailable Reason for Visit * Reason Onset Date Comments Sore Throat 09/02/2024 Encounter Details Date Type Department Care Team (Late st Contact Info) Description 09/02/2024 Nurse Triage [facility] Call Center [address] [place] [address] Justen Gale MD #[address] [address] Sore Throat Social History Tobacco Use Types [...] do you attend chur or nondenominational services? More than 4 times per year 08/06/2024 Do you belong to any clubs o r organizations such as yazidi groups, unions, fraternal or athletic groups, or [...] Score - Questions 1-9 0 07/23 [facility] - Occupational [...] Miscellaneous Notes * Telephone Encounter - Christin Baez RN - 09/02/2024 2:49 PM CDT SITUATION: strep [...] Pharmacy, medications, and allergies reviewed. Discussed utilizing [employer] to: discuss if they would prefer a [employer] message or phone call response - See [...] Ulcers - Caller Reports Outcome: Transfer to securities clerk queue Reason: Caller denied all higher acuity questions The caller accepted this outcome. Caller Denied: * Struggling for each breath (severe trouble breathing) * Can't swallow saliva (drooling) documented in this encounter Plan of Treatment Upcoming Encounters Date Type Department Care Team (Late st Contact Info) Description 10/22/2024 11:15 AM CDT Office Visit [facility] - Endocrinology - [place] #2 [place] [address] Annel Rod MD #[address] [address] 11/13/2024 2:00 PM CDT Appointment [facility] Cardiology Services 1 [place] [address] Angelito Alegria, ROTARY SLICING MACHINE OPERATOR, TAIL DOGGER #2 [facility] [address] [place] [address] Discharge Disposition: Discharged to home or Selfcare documented as of this encounter Visit Diagnoses Not on filedocumented in this encounter Additional Health Concerns Assessment Noted Time PHQ-9 Depression Total Score: 0 08/02/19 25 1:09 PM CDT documented as of this encounter Care Teams Reservoir Engineering Advisor Relationship Specialty Start Date End Date Justen Gale MD #[address] [address] PCP - General Family Medicine 10/17/17 David Roberts APRN, TAIL DOGGER #2 [place] [address] Nurse Practitioner Advanced Practice Nurse 01/31/22 Annel Rod MD #[address] [address] Consulting Physician Endocrinology 07/01/22 documented as of this encounter
--- OUTSIDE RECORDS SUMMARY | 2024-10-02 23:12 | XMS_ITS | Encounter Summary ---
Author Organization [facility] Address [address] [place] [address] Phone Care Team Providers Care Cigarette Seller Name Role Phone Justen Gale MD Primary Care Provider David Roberts APRN, CRYSTAL REPORT DEVELOPER Unavailable Annel Rod MD Unavailable Reason for Visit * Reason Comments Medication Refill Encounter Details Date Type Department Care Team (Late st Contact Info) Description 03/13/2021 Refill [facility] [address] [place] [address] Justen Gale MD #[address] [address] Medication Refill Social History Tobacco [...] COVID-19? No / Unsure 03/02/2021 5:05 PM ASTRONOMY PROFESSOR documented as of this encounter Plan of Treatment Upcoming Encounters Date Type Department Care Team (Late st Contact Info) Description 10/22/2024 11:15 AM CDT Office Visit [facility] - Endocrinology [facility] #2 [place] [address] Annel Rod MD #2 [facility] [address] [place] [address] 11/13/2024 2:00 PM CDT [facility] 1 [place] [address] Angelito Alegria, RESIDENT ASSISTANT CNA, CRYSTAL REPORT DEVELOPER #2 [facility] [address] [place] [address] Discharge Disposition: Discharged to home or Selfcare documented as of this encounter Visit Diagnoses Not on filedocumented in this encounter Additional Health Concerns Infection Onset Date Last Indicated Resolved Time COVID - 19 08/01/2024 08/01/2024 08/01/2024 3:20 PM CDT Assessment Noted Time PHQ-9 Depression Total Score: 0 07/21/19 3:00 PM CDT documented as of this encounter Care Teams Cigarette Seller Relationship Specialty Start Date End Date Justen Gale MD #[address] [address] PCP - General Family Medicine 10/17/17 David Roberts APRN, CRYSTAL REPORT DEVELOPER #2 [place] [address] Nurse Practitioner Advanced Practice Nurse 01/31/22 Annel Rod MD #2 [place] [phone] Consulting Physician Endocrinology 07/01/22 documented as of this encounter
--- OUTSIDE RECORDS SUMMARY | 2024-10-02 23:12 | XMS_ITS | Encounter Summary ---
Author Organization [facility] Address [address] [place] [address] Phone Care Team Providers Care Lost Charge Card Clerk Name Role Phone Justen Gale MD Primary Care Provider David Roberts APRN, FLASH OVEN OPERATOR Unavailable Annel Rod MD Unavailable Reason for Visit * Reason Comments Medication Refill Encounter Details Date Type Department Care Team (Late st Contact Info) Description 08/30/2022 Refill [facility] - Family Medicine [facility] #2 [place] [address] Justen Gale MD #[address] [address] Medication Refill Social History Tobacco Use Types [...] [place] 05/02/22 Office Visit Justen Gale MD [facility] [place] 03/03/22 Office Visit Pili Elkins APRN, NETTA [facility] [place] 01/03/22 Office Visit Dannielle Berg PAC [facility] [place] 12/07/21 Office Visit Pili Elkins APRN, NETTA [facility] [place] 11/09/21 Office Visit Pili Elkins APRN, NETTA [facility] [place] 10/08/21 Office Visit Angelito Alegria APRN, NETTA [facility] [place] 08/30/21 [facility] Show[facility] recent visits within past 365 [...] Visit [facility] - Endocrinology - [place] #2 [place] [address] Annel Rod MD #[address] [address] 11/13/2024 2:00 PM CDT Appointment [facility] Cardiology Services 1 [place] [address] Angelito Alegria, PUNCHER, FLASH OVEN OPERATOR #[address] [address] Discharge Disposition: Discharged to home or Selfcare documented as of this encounter Visit Diagnoses Not on filedocumented in this encounter Additional Health Concerns Infection Onset Date Last Indicated Resolved Time COVID - 19 08/01/2024 08/01/2024 08/01/2024 3:20 PM CDT Assessment Noted Time PHQ-9 Depression Total Score: 0 07/21/19 3:00 PM CDT documented as of this encounter Care Teams Lost Charge Card Clerk Relationship Specialty Start Date End Date Justen Gale MD #[address] [address] PCP - General Family Medicine 10/17/17 David Roberts, PUNCHER, FLASH OVEN OPERATOR #2 [place] [address] Nurse Practitioner Advanced Practice Nurse 01/31/22 Annel Rod MD #[address] [address] Consulting Physician Endocrinology 07/01/22 documented as of this encounter
--- OUTSIDE RECORDS SUMMARY | 2024-10-02 23:12 | XMS_ITS | Encounter Summary ---
Author Organization [facility] Address [address] [facility] [place] [address] Care Team Providers Care Banquet Cook Name Role Phone Justen Gale MD Primary Care Provider [phone] Encounter Details Date Type Department Care Team (Late st Contact Info) Description 08/14/2024 Results Follow-Up ER at [facility] [address] [place] [address] Josué Bernal, STEPH [address] [place] [address] Social History Tobacco Use Types Packs/Day [...] medical care, and heating? Somewhat hard 05/16/2023 [facility] - Occupational Stress [...] on file Legal Sex Female 6:53 PM DATA ENTRY ANALYST Gender Identity Not on file Sexual [...] on filedocumented in this encounter Care Teams Banquet Cook Relationship Specialty Start Date End Date Justen Gale MD PCP - General 07/05/21 documented as of this encounter
--- OUTSIDE RECORDS SUMMARY | 2024-10-02 23:13 | XMS_ITS | Encounter Summary ---
Author Organization [facility] Address [address] [place] [address] Phone Care Team Providers Care Radio Communication Coordinator Name Role Phone Justen Gale MD Primary Care Provider [phone] David Roberts APRN, LEAD IOS DEVELOPER Unavailable Annel Rod MD Unavailable Reason for Visit * Reason Onset Date Comments Advice Only 11/21/2023 Encounter Details Date Type Department Care Team (Late st Contact Info) Description 11/21/2023 Telephone [facility] [address] [place] [address] Justen Gale MD #[address] [address] Advice Only Social History Tobacco Use Types [...] 11/21/2023 3:17 PM CDT RFC: Alejandra from [facility] is calling to state that patient is [...] Group - Endocrinology - [place] #2 [place] [address] Annel Rod MD #2 [facility] [address] [place] [address] 11/13/2024 2:00 PM CDT [facility] 1 [place] [address] Angelito Alegria APRN, LEAD IOS DEVELOPER #2 [facility] [address] [place] [address] Discharge Disposition: Discharged to home or Selfcare documented as of this encounter Visit Diagnoses Not on filedocumented in this encounter Additional Health Concerns Infection Onset Date Last Indicated Resolved Time COVID - 19 08/01/2024 08/01/2024 08/01/2024 3:20 PM CDT Assessment Noted Time PHQ-9 Depression Total Score: 8 01/18/20 2:24 PM CDT documented as of this encounter Care Teams Radio Communication Coordinator Relationship Specialty Start Date End Date Justen Gale MD #2 [facility] [address] [place] [address] PCP - General Family Medicine 10/17/17 David Roberts APRN, NETTA #2 [place] [address] Nurse Practitioner Advanced Practice Nurse 01/31/22 Annel Rod MD #2 [facility] [address] [place] [address] Consulting Physician Endocrinology 07/01/22 documented as of this encounter
--- OUTSIDE RECORDS SUMMARY | 2024-10-02 23:13 | XMS_ITS | Clinical Summary ---
Author Organization [facility] Address [address] [place] [address] Phone Care Team Providers Care Quarter Folder Name Role Phone Justen Gale MD Primary Care Provider [phone] David Roberts APRN, OPERATIONS PROFESSIONAL Unavailable [phone] Annel Rod MD Unavailable Allergies Active Allergy [...] long-term current use of insulin ([facility]) Diagnosis: Diabetes Type 2 Blood testing [...] 1 03/07/20 23 Active Additional Information Patient not taking.Reported on 09/29/2024 Continuous Blood Gluc Sensor (FreeStyle Eileen 2 Sensor) [facility] APPLY 1 SENSOR AND WEAR FOR 14 DAYS TO CHECK BLOOD SUGAR 6 Each 1 08/07/19 24 Active albuterol 108 (90 Base) MCG/ACT Aerosol Solution take 2 Puffs by inhalation. 04/19/20 21 Active gabapentin (NEURONTIN) 300 MG Capsule Take 300 mg by mouth. 06/20/19 24 Active HYDROcodone-ac etaminophen (NORCO) 10-325 MG Tablet Take 1 Tablet by mouth. 12/28/19 24 Active Multiple Vitamins-L[place] als (WOMENS MULTI PO) Take by mouth. [...] Glucose Sensor (FreeStyle Eileen 2 Sensor) [facility] 1 Each by Does not apply route every 14 days. Change sensor every 14 days. E11.42, insulin dependent 6 Each 1 04/25/19 25 Active Continuous Glucose Sensor (FreeStyle Eileen 2 Sensor) [facility] 1 Each by Does not apply route [...] every morning. 30 mL 08/06/19 25 Active Additional Information Patient taking differently: 50 UnitsSubcutaneous EVERY MORNING, Reported on 09/29/2024 montelukast (SINGULAIR) 10 MG TabletIndicati ons:Seasonal Allergic Rhinitis Take 1 Tablet by mouth every evening. Indications: Hayfever 90 Tablet 09/07/19 25 Active clotrimazole (MYCELEX) 10 MG TrocheIndicati ons:Oropharyng eal Candidiasis Take 1 Rozina by mouth 5 times daily. Indications: Candidiasis Fungal Infection of the Oropharynx 50 Rozina 09/07/19 25 Active Additional Information Patient not taking.Reported on 09/29/2024 predniSONE (DELTASONE) 10 MG TabletIndicati ons:Polymyalgi a Rheumatica Take 1 Tablet by mouth daily. Do not stop taking until cleared by PCP office or weight loss consultant. Will need to taper off slowly. Indications: Polymyalgia Rheumatica 30 Tablet 10/01/19 25 Active predniSONE (DELTASONE) 10 MG TabletIndicati ons:Polymyalgi a Rheumatica Take 1 Tablet by mouth daily. Do not stop taking until cleared by PCP office or weight loss consultant. Will need to taper off slowly. Indications: Polymyalgia Rheumatica 30 Tablet 08/10/19 25 2024 Discontin ued(Reord er) predniSONE (DELTASONE) 10 MG TabletIndicati ons:Polymyalgi a Rheumatica Take 1 Tablet by mouth daily. Do not stop taking until cleared by PCP office or weight loss consultant. Will need to taper off slowly. Indications: Polymyalgia Rheumatica 30 Tablet 09/07/19 25 2024 Discontin ued(Reord er) furosemide (LASIX) 20 MG TabletIndicati ons:Edema Take 0.5 Tablets by mouth daily for 3 days. Indications: Edema 3 Tablet 09/07/19 25 2024 Active Problems Problem Noted Date Diagnosed Date [...] Overview: Added automatically from request for surgery [id number] Lymphedema of left upper extremity 08/09/2016 Pulmonary embolism 08/09/2016 Overview (11/09/2017): Last Assessment & Plan: On Rivaroxaban Arthralgia of ankle 01/26/2015 Cellulitis of breast 11/11/2014 Encounters Date Type Department Care Team Description 09/30/2024 MyChart RX Renewal [facility] [address] [place] [phone] Dulce Wolff, THIRD GRADE TEACHER, OPERATIONS PROFESSIONAL Medication Renewal Reviewed 09/29/2024 [facility]riage [facility] [address] [place] [phone] Justen Gale MD Urinary Tract Infection 09/23/2024 [facility] [address] [place] [phone] Justen Gale MD Breathing Problem; Pain 09/23/2024 Telephone [facility] [address] [place] [phone] Justen Gale MD Pain 09/11/2024 [facility]phone [facility] [address] [place] [phone] Justen Gale MD Follow-up 09/06/2024 1:15 PM CDT Office Visit [facility] [address] [place] [address] Dulce Wolff, THIRD GRADE TEACHER, OPERATIONS PROFESSIONAL Enlarged tonsils (Primary Dx); Polymyalgia rheumatica (HCC); Oral candidiasis; Edema, unspecified type Discharge Disposition: Discharged to home or Selfcare 09/06/2024 Travel 09/03/2024 Telephone [facility] [address] [place] [address] Justen Gale MD Follow-up 09/02/2024 Nurse [facility]riage [facility] [address] [place] [phone] Justen Gale MD Sore Throat 08/20/2024 1:15 PM CDT Office Visit [facility] [address] [place] [address] Justen Gale MD Acute maxillary sinusitis, recurrence not specified (Primary Dx) Discharge Disposition: Discharged to home or Selfcare 08/20/2024 Travel 08/19/2024 Telephone [facility] [address] [place] [address] Justen Gale MD Advice Only; Follow-up 08/14/2024 Telephone [facility] [place] [phone] Annel Rod MD High Blood Sugar 08/13/2024 Nurse Triage [facility] [address] [place] [phone] Justen Gale MD High Blood Sugar 08/07/2024 9:20 AM CDT Lab [facility] [address] [phone] Lab [place] [facility]/Ancillary Body aches; Diffuse arthralgia Discharge Disposition: Discharged to home or Selfcare 08/07/2024 8:30 AM CDT Office Visit [facility] [address] [place] [phone] Angelito Alegria APRN, CNP Diffuse arthralgia (Primary Dx); Dyspnea on exertion; Type 2 diabetes mellitus with diabetic polyneuropathy, with long-term current use of insulin ([facility]) Discharge Disposition: Discharged to home or Selfcare 08/07/2024 Results Follow-Up [facility] [address] [place] [phone] Angelito Alegria APRN, CNP CREATINE KINASE (CK) TOTAL, ERYTHROCYTE SEDIMENTATION RATE (ESR), C-REACTIVE PROTEIN (CRP) QUANT 08/07/2024 Nurse Triage [facility] [address] [phone] Justen Gale MD Breathing Problem; Muscle Pain 08/06/2024 Travel 08/05/2024 MyChart RX Renewal [facility] Endocrinology [facility] [address] [place] [phone] Annel Rod MD Medication Renewal Reviewed 08/05/2024 Nurse Triage [facility] [address] [place] [phone] Justen Gale MD Muscle Pain; Follow-up 08/03/2024 3:36 AM CDT - 08/03/2024 7:05 AM CDT [facility] [address] [place] [address] Sergio Rivera MD Myalgia Discharge Disposition: Discharged to home or Selfcare 08/02/2024 Travel 08/02/2024 Nurse Triage [facility] [address] [place] [phone] Justen Gale MD Hemoptysis 08/02/2024 Telephone [facility] [address] [place] [phone] Justen Gale MD Results 08/02/2024 Telephone [facility] [address] [place] [phone] Angelito Alegria APRN, OPERATIONS PROFESSIONAL Results 08/02/2024 MyChart RX Renewal [facility] Endocrinology [facility] [address] [place] [phone] Annel Rod MD Medication Renewal Reviewed 08/01/2024 2:13 PM CDT - 08/01/2024 4:16 PM CDT Emergency [facility] Emergency [address] [place] [address] Jack Leiva MD Dyspnea on exertion Discharge Disposition: Discharged to home or Selfcare 08/01/2024 1:15 PM CDT Office Visit [facility] [address] [place] [address] Angelito Alegria APRN, OPERATIONS PROFESSIONAL Body aches (Primary Dx) Discharge Disposition: Discharged to home or Selfcare 08/01/2024 Travel 08/01/2024 Nurse Triage [facility] [address] [place] [phone] Justen Gale MD Pain 07/22/2024 Telephone [facility] [address] [place] [phone] Justen Gale MD Appointment 07/11/2024 Nurse Triage [facility] [address] [place] [phone] Justen Gale MD Toe Problem from Last 3 Months Immunizations Immunization Administration Dates Next Due Covid-19 Vaccine, Vector-nr, Rs-ad26, Pf, 0.5 Ml (MABEL/J&J) 06/29/2020 Influenza Vaccine greater than 3 yrs [...] 0.6 oz pur e alcohol) [facility] Utilities Answer Date Recorded In the past 12 months has [employer], [employer], oil, or water [employer] threatened to shut off services in your home? Yes 08/06/2024 Social Connection and Isolation Panel Answer Date Recorded In a typical week, how many times do you talk on the phone with family, friends, or neighbors? More than three times a week 08/06/2024 How often do you get togethe r with friends or relatives? Patient declined 08/06/2024 How often do you attend [facility] or [facility] services? More than 4 times per year [...] Total Score - Questions 1-9 0 07/23 [facility] - Occupational Stress Questionnaire Answer Date Recorded [...] any time in the past 12 [facility], were you homeless or living in a usp (including now)? No 08/06/2024 Education Answer Date [...] Description 10/22/2024 11:15 AM CDT Office Visit [facility] - Endocrinology - [place] [address] [place] [phone] Annel Rod MD [address] [phone] 11/13/2024 2:00 PM CDT [facility] [address] [place] [phone] Angelito Alegria, THIRD GRADE TEACHER, OPERATIONS PROFESSIONAL [address] [address] Discharge Disposition: Discharged to home or Selfcare Health Maintenance Due Date Last Done Comments Diabetes: Eye Exam 1955 Pneumococcal Immunization (50+ years) (1 of 2 - PCV) 1975 Zoster Immunization (1 of 2) 1975 Cologuard 2001 Respiratory Syncytial Virus (RSV) Immunization (Adult) (1 [...] Years (Adults With 1 Tdap) 02/22/2026 02/23/2016 Mammogram Unilateral Discontinued 09/10/2014 Cervical Cancer Screening [...] Date/Time Associated Diagnosis Comments XR - CHEST 09/27/2024 12:00 AM CDT PAIN CONSULT 09/19/2024 12:[address] [...] screening for human papillomavirus (HPV) PATHOLOGY CYTOLOGY PSYCHOLOGICAL OPERATIONS SPECIALIST Routine 07/05/2022 2:24 PM CDT Encounter for gynecological examination with abnormal finding HM COLONOSCOPY Routine 01/09/2020 AMB REFERRAL TO PODIATRY Routine 08/13/2019 POCT STOOL, OCCULT BLOOD, DIAGNOSTIC Routine 09/07/2018 1:20 PM CDT Generalized abdominal pain from Last 3 Months or Most Recently Relevant to Health Maintenance Results * XR - CHEST (09/27/2024 12:00 AM CDT) Only the most recent of3 resultswithin the time period is included. 09/27/2024 us Provider Scan IMG DIAGNOSTIC ORDERABLES Final Result Performing Organization Address [facility] de Phone Number SCAN * PAIN CONSULT (09/19/2024 12:00 AM CDT) Only the most recent of2 resultswithin the time period is included. 09/19/2024 Justen Gale MD GENERIC SCAN ORDERS CONSULT F inal Result Performing Organization Address [facility] de Phone Number SCAN * CT - HEAD/NECK (08/13/2024 12:00 AM CDT) 08/13/2024 us Provider Scan IMG CT ORDERABLES Final Result Performing Organization Address [facility] de Phone Number SCAN * (ABNORMAL) ERYTHROCYTE SEDIMENTATION RATE (ESR) (08/07/2024 8:59 AM CDT) Only the most recent of2 resultswithin the time period is included. ESR (SED RATE, ERYTHROCYTE SEDIMENTATION RATE) 52(H) <30 mm/h 08/07/2024 12:34 PM CDT [facility] Comment: Patients presenting with increased level of fibrinogen, gamma globulins, or abnormally shaped RBCs could affect the results for the erythrocyte sedimentation rate (ESR). Results should be clinically correlated. Blood Venipuncture / Unknown 08/07/2024 8:59 AM CDT 08/07/2024 8:59 AM CDT Angelito Alegria APRN, CNP HEMATOLOGY ORDER CHAPARRO Final Result Performing Organization Address City/[facility] Co de Phone Number [facility] [address] [place] [address] * CREATINE KINASE (CK) TOTAL (08/07/2024 8:59 AM CDT) Only the most recent of2 resultswithin the time period is included. CK (CPK) 151 29 - 168 U/L 08/07/2024 1:08 PM CDT [facility] Blood Venipuncture / Unknown 08/07/2024 8:59 AM CDT 08/07/2024 8:59 AM CDT Angelito Alegria APRN, CNP HEMATOLOGY ORDER CHAPARRO Final Result Performing Organization Address [facility] Co de Phone Number [facility] [address] [place] [address] * (ABNORMAL) C-REACTIVE PROTEIN (CRP) QUANT (08/07/2024 8:59 AM CDT) Only the most recent of2 resultswithin the time period is included. C-REACTIVE PROTEIN 1.21(H) <0.50 mg/dL 08/07/2024 12:54 PM CDT [facility] Blood Venipuncture / Unknown 08/07/2024 8:59 AM CDT 08/07/2024 8:59 AM CDT Angelito Alegria APRN, CNP CHEMISTRY ORDERA BLES Final Result Performing Organization Address City/[facility]/ZIP Co de Phone Number [facility] [address] [place] [address] * (ABNORMAL) POCT GLUCOSE (08/07/2024 8:31 AM CDT) GLUCOSE 186(A) 70 - 99 mg/dL 08/07/2024 8:31 AM CDT us Angelito Alegria APRN, CNP POINT OF CARE TE STING (MANUAL) Final Result * CTA GENERIC (08/07/2024 12:00 AM CDT) 08/07/2024 us Provider Scan IMG CT ORDERABLES Final Result Performing Organization Address [facility] Co de Phone Number SCAN * [...] Sen Sy M.D. JANIYA: JANIYA Report ID: [id number] Reading Location: [id number] Procedure Note Dillon Sy MD - 08/03/2024 [...] Sen Sy M.D. JANIYA: JANIYA Report ID: [id number] Reading Location: [id number] IMPRESSION: Negative right hip. Sergio Rivera MD IM DIAGNOSTIC ORDERABLES Final Result * XR CHEST [...] Patrick Zhou M.D. KH: KATH Report ID: [id number] Reading Location: [id number] Procedure Note Patrick Zhou MD - 08/03/2024 [...] Patrick Zhou M.D. KH: KATH Report ID: [id number] Reading Location: [place] [address] IMPRESSION: Mild bilateral infiltrates are suspected superimposed on chronic lung changes. Sergio Rivera MD IM DIAGNOSTIC ORDERABLES Final Result * CBC with Auto Differential (08/02/2024 11:21 PM CDT) Only the most recent of2 resultswithin the time period is included. WBC 9.26 4.00 - 12.00 10(3)/mcL 08/03/2024 12:08 AM CDT [facility] RBC 4.62 3.80 - 5.30 10(6)/mcL 08/03/2024 12:08 AM CDT [facility] HEMOGLOBIN (HGB) 13.5 12.0 - 15.8 g/dL 08/03/2024 12:08 AM CDT [facility] HEMATOCRIT (HCT) 42.9 36.0 - 47.0 % 08/03/2024 12:08 AM CDT [facility] MCV 92.9 82.0 - 96.0 fL 08/03/2024 12:08 AM CDT [facility] MCH 29.2 26.0 - 34.0 pg 08/03/2024 12:08 AM CDT [facility] MCHC 31.5 31.0 - 36.0 g/dL 08/03/2024 12:08 AM CDT [facility] PLATELET COUNT 272 140 - 440 10(3)/mcL 08/03/2024 12:08 AM CDT [facility] RDW 12.8 11.8 - 15.5 % 08/03/2024 12:08 AM CDT [facility] MPV 10.2 9.7 - 12.4 fL 08/03/2024 12:08 AM CDT [facility] NEUTROPHILS 62.5 47.0 - 73.0 % 08/03/2024 12:08 AM CDT [facility] LYMPHOCYTES 27.1 18.0 - 42.0 % 08/03/2024 12:08 AM CDT [facility] MONOCYTES 7.1 4.0 - 12.0 % 08/03/2024 12:08 AM CDT [facility] EOSINOPHILS 3.0 0.0 - 5.0 % 08/03/2024 12:08 AM CDT [facility] BASOPHILS 0.3 0.0 - 1.0 % 08/03/2024 12:08 AM CDT [facility] ABSOLUTE NEUTROPHILS 5.78 1.60 - 7.70 10(3)/mcL 08/03/2024 12:08 AM CDT [facility] ABSOLUTE LYMPHOCYTES 2.51 1.30 - 3.20 10(3)/mcL 08/03/2024 12:08 AM CDT [facility] ABSOLUTE MONOCYTES 0.66 0.20 - 1.00 10(3)/mcL 08/03/2024 12:08 AM CDT [facility] ABSOLUTE EOSINOPHIL 0.28 0.00 - 0.40 10(3)/[facility] 08/03/2024 12:08 AM CDT [facility] ABSOLUTE BASOPHILS 0.03 0.00 - 0.10 10(3)/[facility] 08/03/2024 12:08 AM CDT [facility] NRBC PER 100 WBC 0 08/04/19 12:08 AM CDT [facility] Blood Venipuncture / Unknown 08/02/2024 11:21 PM CDT 08/03/2024 12:05 AM CDT Sergio Rivera MD HEMATOLOGY ORDERABLES Final Resu lt [facility] [address] [place] [address] * (ABNORMAL) CMP (Comprehensive Metabolic Panel) (08/02/2024 11:21 PM CDT) Only the most recent of2 resultswithin the time period is included. SODIUM 138 136 - 145 mmol/L 08/03/2024 12:29 AM CDT [facility] POTASSIUM 4.4 3.5 - 5.1 mmol/L 08/03/2024 12:29 AM CDT [facility] CHLORIDE 104 98 - 107 mmol/L 08/03/2024 12:29 AM CDT [facility] CO2, VENOUS 26 22 - 30 mmol/L 08/03/2024 12:29 AM CDT [facility] ANION GAP 12.4 <18.0 mmol/L 08/03/2024 12:29 AM CDT [facility] GLUCOSE 353(H) 70 - 99 mg/dL 08/03/2024 12:29 AM CDT [facility] BUN 18 10 - 20 mg/dL 08/03/2024 12:29 AM CDT [facility] CREATININE, BLOOD 0.80 0.60 - 1.00 mg/dL 08/03/2024 12:29 AM CDT [facility] BUN/CREATININE RATIO 23(H) 12 - 20 ratio 08/03/2024 12:29 AM CDT [facility] TOTAL PROTEIN 8.4(H) 6.0 - 8.0 g/dL 08/03/2024 12:29 AM CDT [facility] ALBUMIN 3.8 3.5 - 5.0 g/dL 08/03/2024 12:29 AM CDT [facility] A/G RATIO 0.8(L) 1.0 - 2.2 08/03/2024 12:29 AM CDT [facility] CALCIUM 10.0 8.7 - 10.5 mg/dL 08/03/2024 12:29 AM CDT [facility] T BILI 0.4 0.2 - 1.2 mg/dL 08/03/2024 12:29 AM CDT [facility] SGOT (AST) 23 <43 U/L 08/03/2024 12:29 AM CDT [facility] SGPT (ALT) 22 <56 U/L 08/03/2024 12:29 AM CDT [facility] ALKALINE PHOSPHATASE 67 40 - 150 U/L 08/03/2024 12:29 AM CDT [facility] GFR, ESTIMATED >60 >=60 08/03/2024 12:29 AM CDT [facility] Comment: Creatinine Clearance is the preferred criteria for selecting drug dose adjustments in renally impaired patients. The GFR is provided as additional pertinent clinical information. GFR is reported in mL/min/1.73 sq m. Calculation based on the Chronic Kidney Disease Epidemiology Collaboration (CKD- EPI) equation refit without adjustment for race. GFR, EST. >60 >=60 025 12:29 AM CDT [facility] GFR, EST. NONAFRICAN >60 >=60 08/03/2024 12:29 AM CDT [facility] Blood Venipuncture / Unknown 08/02/2024 11:21 PM CDT 08/03/2024 12:05 AM CDT Sergio Rivera MD CHEMISTRY ORDERABLES Final Resul t [facility] [address] [place] [address] * TROPONIN I, HIGH SENSITIVITY (HSTRP) (08/01/2024 2:48 PM CDT) TROPONIN I, HIGH SENSITIVITY- [place] 4 <=14 ng/L 08/01/2024 3:45 PM CDT [facility] Comment: High-sensitivity troponin I results are reported in ng/L making the result appear to be 1,000 times higher than the contemporary troponin I value which is reported in ng/ml. Results from [place]. Blood Venipuncture / Unknown 08/01/2024 2:48 PM CDT 08/01/2024 3:08 PM CDT Jack Leiva MD CHEMISTRY ORDERABLES Deann l Result Performing Organization Address [facility] Co de Phone Number [facility] [address] [place] [address] * Gold Top Tube (08/01/2024 2:48 PM CDT) Blood No Phlebotomy Charged / Unknown 08/01/2024 2:48 PM CDT 08/01/2024 3:12 PM CDT Jack Leiva MD CHEMISTRY ORDERABLES Deann l Result Performing Organization Address [facility] de Phone Number [facility] [address] [place] [address] * Blue Top Tube (08/01/2024 2:48 PM CDT) Blood No Phlebotomy Charged / Unknown 08/01/2024 2:48 PM CDT 08/01/2024 3:12 PM CDT Jack Leiva MD HEMATOLOGY ORDERABLES Fin al Result Performing Organization Address [facility] de Phone Number [facility] [address] [place] [address] * Magnesium (08/01/2024 2:48 PM CDT) MAGNESIUM 1.6 1.6 - 2.6 mg/dL 08/01/2024 3:39 PM CDT [facility] Blood Venipuncture / Unknown 08/01/2024 2:48 PM CDT 08/01/2024 3:08 PM CDT us Jack Leiva MD CHEMISTRY ORDERABLES Deann l Result Performing Organization Address City/[facility]/ZIP Co de Phone Number [facility] [address] [place] [address] * B-Type Natriuretic Peptide (BNP) (08/01/2024 2:48 PM CDT) B TYPE NATRIURETIC PEPTIDE 23 <100 pg/mL 08/01/2024 3:37 PM CDT [facility] Blood Venipuncture / Unknown 08/01/2024 2:48 PM CDT 08/01/2024 3:08 PM CDT Jack Leiva MD CHEMISTRY ORDERABLES Deann l Result Performing Organization Address [facility] Co de Phone Number [facility] [address] [place] [address] * EKG 12 LEAD (08/01/2024 2:41 PM CDT) Ventricular Rate 75 BPM EXTERNAL EKG Atrial Rate 75 BPM EXTERNAL EKG P-R Interval 134 ms EXTERNAL EKG QRS Duration 82 ms EXTERNAL EKG Q-T Duration 380 ms EXTERNAL EKG QTC CALCULATION 424 ms EXTERNAL EKG P [place] -77 degrees EXTERNAL EKG R [place] 28 degrees EXTERNAL EKG T [place] 53 degrees EXTERNAL EKG 08/01/2024 2:41 PM CDT Impressions EXTERNAL EKG - 08/04/2024 12:00 PM CDT Atrial-sensed ventricular-paced rhythm Abnormal ECG No previous ECGs available Confirmed by Maryann Clay ([id number]) on 08/04/2024 11:59:59 AM Narrative Procedure Note Maryann Clay MD - 08/04/2024 IMPRESSION: Atrial-sensed ventricular-paced rhythm Abnormal ECG No previous ECGs available Confirmed by Maryann Clay ([id number]) on 08/04/2024 11:59:59 AM us Jack Leiva [...] Romelia Bowen D.O. PS: PS Report ID: [id number] Reading Location: [place] [address] Procedure Note Romelia Bowen DO - 08/01/2024 [...] Romelia Bowen D.O. PS: PS Report ID: [id number] Reading Location: [id number] IMPRESSION: Patchy left basilar airspace opacities, which may be related to subsegmental atelectasis/scarring versus developing airspace disease. Jack Leiva MD IMG DIAGNOSTIC ORDERABLES Final Result * RSV,SARS-COV-2,INFLUENZA A&B BY PCR (08/01/2024 2:28 PM CDT) FLU A Negative Negative, Error 08/01/2024 3:20 PM CDT [facility] FLU B Negative Negative 08/01/2024 3:20 PM CDT [facility] RESP SYNC VIRUS Negative Negative 3:20 PM CDT [facility] SARSCOV2 NOT DETECTED (Reference Range for this test is Not Detected) 08/01/2024 3:20 PM CDT [facility] Comment:This test was perfor med by a Reverse Pastry [employer]isher PCR Method. Swab NASOPHARYNGEAL STRUCTURE / Unknown Non-Phlebotomy Collection / Unknown 08/01/2024 2:28 PM CDT 08/01/2024 2:33 PM CDT Jack Leiva MD MICROBIOLOGY - GENERAL OR DERABLES Final Result Performing Organization Address City/[facility]/ZIP Co de Phone Number [facility] [place] [address] * EKG SCAN (08/01/2024 12:00 AM CDT) 08/01/2024 us Provider Scan IMG ECG ORDERABLES Final Result RESULTING AGENCY * CT - CHEST (07/22/2024 12:00 AM CDT) 07/22/2024 us Provider Scan IMG CT ORDERABLES Final Result Performing Organization Address City/[facility]/ZIP Co de Phone Number SCAN * XR - LOWER EXTREMITY (07/10/2024 12:00 AM CDT) 07/10/2024 us Provider Scan IMG DIAGNOSTIC ORDERABLES Final Result Performing Organization Address City/[facility]/ZIP Co de Phone Number SCAN * HEMOGLOBIN, A1C (10/02/2023 12:00 AM CDT) HGB-A1C 7.8 SCAN 10/02/2023 us Provider Scan CHEMISTRY ORDERABLES Final Resul t Performing Organization Address [facility] Co de Phone Number SCAN * PATHOLOGY CYTOLOGY PSYCHOLOGICAL OPERATIONS SPECIALIST (07/05/2022 2:24 PM CDT) SPECIMEN ADEQUACY A scant cellular component is noted. Scant cellularity is likely due to presence of lubricant. 07/08/2022 8:38 AM CDT [facility] DESCRIPTIVE DIAGNOSIS NEGATIVE FOR INTRAEPITHELIAL LESIONS OR MALIGNANCY. 07/08/2022 8:38 AM CDT [facility] at 0838 CDT OTHER FINDINGS Atrophic hormonal pattern. 07/08/2022 8:38 AM CDT [facility] Automated Examination This sample was not evaluated by the automated imaging and review system ([employer]in[employer] Imaging System, [employer], [place], [place] due to technical and / or biologic factor(s). The case was screened, reviewed, and finalized by a chronometer repairer and / or pathologist. 07/08/2022 8:38 AM CDT [facility] Disclaimer The PAP smear is a [...] unless clinically indicated. 07/08/2022 8:38 AM CDT [facility] Other CERVIX UTERI STRUCTURE / Unknown Non-Phlebotomy Collection / Unknown 07/05/2022 2:24 PM CDT 07/05/2022 2:24 PM CDT us Pili Elkins APRN, CNP PATHOLOGY/CYTOLOGY O RDERABLES Final Result [facility] [address] [place] [address], [place] * HUMAN PAPILLOMA VIRUS (HPV) (07/05/2022 2:24 PM CDT) HPV OTHER HIGH RISK TYPES, PCR NEGATIVE NEGATIVE 07/06/2022 2:37 PM CDT [facility] Comment: The following Other High Risk [...] 16 NEGATIVE NEGATIVE 07/06/2022 2:37 PM CDT [facility] Comment: A negative high-risk HPV result [...] 18 NEGATIVE NEGATIVE 07/06/2022 2:37 PM CDT [facility] Comment: A negative high-risk HPV result [...] OR DIAGNOSTIC SCREENING 07/06/2022 2:37 PM CDT [facility] Other Non-Phlebotomy Collection / Unknown 07/05/2022 2:24 PM CDT 07/05/2022 2:24 PM CDT Narrative [facility] - 07/06/2022 2:37 PM CDT Performed by Real-Time Polymerase Chain Reaction (PCR) on the Ronnie Vinay 4800. This assay has been validated for use with post-aliquot samples from the [employer] T5000 processor. us Pili Elkins APRN, OPERATIONS PROFESSIONAL LAB SEND OUTS Deann l Result [facility] [address] [place] [address], [facility] [address] [place] [address] * HM COLONOSCOPY (01/09/2020) us Genaro Jensen DO PROCEDURE/MINOR SURGICAL ORDERA BLES Final Result * AMB REFERRAL TO PODIATRY (08/13/2019) us Alvarez Mensah MD OUTPATIENT REFERRALS Final Res ult * POCT STOOL, OCCULT BLOOD, DIAGNOSTIC (09/07/2018 1:20 PM CDT) OCCULT BLOOD, STOOL Negative Negative, Other POC HEMOCULT CONTROL Model And Mold Maker Pass 09/07/2018 1:20 PM CDT Pili Brittni THIRD GRADE TEACHER, OPERATIONS PROFESSIONAL POINT OF CARE TESTIN G (MANUAL) Final Result from Last 3 Months or Most Recently Relevant to Health Maintenance Insurance MEDICARE C [employer] Care Teams Quarter Folder Relationship Specialty Start Date End Date Justen Gale MD #2 [facility] [address] [place] [address] PCP - General Family Medicine 10/17/17 David Roberts APRN, NETTA #[address] [place] [address] Nurse Practitioner Advanced Practice Nurse 01/31/22 Annel Rod MD #2 [facility] [address] [place] [address] Consulting Physician Endocrinology 07/01/22
[2024-10-02 23:16] VITALS: BP 144/85; PULSE 91; TEMP 36.5; O2SAT 99
[2024-10-02 23:20] VITALS: BP 144/85; PULSE 91; TEMP 36.5; O2SAT 99
--- NOTE | 2024-10-03 00:11 | PC.NURSE ---
pt educated about wait time and this rn inability to order medications for patient. Pt verbalized understanding.
[2024-10-03 00:14] LABS: Add Urine Microscopic? YES; Appearance Urine Clear (Clear); Bacteria Urine None Seen /hpf; Bilirubin Urine Negative (Negative); Blood Urine 1+ (Negative); Color Urine Yellow (Yellow); Glucose Urine UA Trace mg/dL (Negative); Ketones Urine Trace mg/dL (Negative); Leukocyte Esterase Ur Negative LEU/UL (Negative); Nitrate Urine Negative (Negative); Non Pathogenic Casts 0-2; Protein Urine 1+ mg/dL (Negative); RBC Urine 0-2 /hpf (0-2); Specific Grav Ur 1.031 (1.001-1.035); Squamous Epithelial Cell Urine None Seen /hpf (Few); WBC Urine 0-5 /hpf (0-3); pH Urine 5.5 (5.0-9.0)
--- OUTSIDE RECORDS SUMMARY | 2024-10-03 00:21 | XMS_ITS | Referral Summary ---
Author Organization [facility] Address [address] [place] [address] Care Team Providers Care Ear Machine Operator Name Role Phone Liu Jerez MD Unavailable Albert Corbin MD Unavailable [phone] Justen Gale MD Primary Care Provider [phone] Khris Arthur MD Unavailable [phone] Ko Melendez MD Unavailable John Paul Moyer [...] 05/22/2024 Assessment & Plan (05/26/2024 10:08 AM FOOD TECHNICIAN): Presenting with urinary symptoms of right [...] 05/22/2024 Assessment & Plan (05/25/2024 7:52 AM FOOD TECHNICIAN): Hx of breast cancer c/b DVT/bilateral [...] 05/22/2024 Assessment & Plan (05/22/2024 1:14 PM FOOD TECHNICIAN): -long-standing chronic back pain -CT L [...] 09/12/2021 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) 2021 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 10/17/2019 Thyroid [...] without long-term current use of [facility] ([facility]) 10/23/2017 Assessment & Plan (10/23/2017 [...] 10/13/2017 Assessment & Plan (05/22/2024 12:29 PM FOOD TECHNICIAN): -Hx stage II, ER positive, HER2 [...] 08/01/2017 Assessment & Plan (05/22/2024 12:33 PM FOOD TECHNICIAN): -Hx LUL -Hospital provided CPAP ordered History of DVT (deep vein thrombosis) 08/01/2017 History of pulmonary embolism 08/01/2017 Generalized weakness 07/27/2017 Dyspnea 07/27/2017 Unintentional weight loss 07/27/2017 Acute cystitis without hematuria 07/27/2017 Nausea and vomiting 07/26/2017 Overview (07/28/2017): Added automatically from request for surgery [id number] Pulmonary embolism 08/09/2016 Assessment & Plan (10/23/2017 2:05 AM CDT): On Rivaroxaban Lymphedema of left upper extremity 08/09/2016 Assessment & Plan (05/25/2024 7:53 AM FOOD TECHNICIAN): S/p L axillary lymph node dissection [...] syndrome Assessment & Plan (05/22/2024 11:18 AM FOOD TECHNICIAN): -continue home Requip 5mg nightly Pain of lower extremity 03/12/2013 Overview (07/29/2016): Leg pain Essential hypertension Assessment & Plan (05/23/2024 10:42 AM FOOD TECHNICIAN): -Chart history of HTN but not on meds -BP elevated on admission, likely some pain contributing -Monitor closely once pain under adequate control, discussed following up with PCP for this Chronic anticoagulation Restless leg syndrome 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 More than 4 times [...] in a retirement (including now)? No 08/15/2023 Housing Stability Vital [...] time in the past 12 m [facility], were you homeless or living in a retirement (including now)? No 05/24/2024 Personal Safety Answer Date Recorded Have you ever been in or are you currently in a harmful physical or emotional relationship or is someone making you feel afraid or unsafe? Denies 07/01/2024 Comments No Sex and Gender Information Value Date Recorded Sex Assigned at Not on file Legal Sex Female 12:24 AM FOOD TECHNICIAN Gender Identity Not on file Sexual [...] CDT HEMOGLOBIN A1C STAT 05/21/2024 4:20 PM FOOD TECHNICIAN LIPID PANEL STAT 05/21/2024 4:20 PM FOOD TECHNICIAN DEXA AXIAL SKELETON BONE DENSITY 1 OR [...] [facility], [address] [place] [address]., [address] Blood 07/01/2024 2:02 PM CDT 07/01/2024 2:12 PM CDT us Ilana Stevens MD LAB BLOOD ORDERABLES F inal Result [facility] [address] [facility] [place] [address] * (ABNORMAL) Hemoglobin A1c (05/21/2024 4:20 PM FOOD TECHNICIAN) Hgb A1C 8.7(H) 4.0 - 5.6 [...] a fasting glucose. Blood 05/21/2024 4:20 PM FOOD TECHNICIAN 05/21/2024 4:55 PM FOOD TECHNICIAN us Leo Henry MD LAB BLOOD ORDERABLES Final Result [facility] Department [place] [address] * (ABNORMAL) Lipid panel (05/21/2024 4:20 PM FOOD TECHNICIAN) Cholesterol 205(H) 30 - 199 mg/dL [...] on 2017. Triglycerides 92 <=149 mg/dL [facility] Comment: Interpretive Data Ages < or [...] LDL, calculated 134(H) <=129 mg/dL [facility] Comment: [...] 2023. Non-HDL Cholesterol 150 mg/dL [facility] Comment: [...] last revised on 2017. Chol/HDL ratio 4 [facility] Blood 05/21/2024 4:20 PM FOOD TECHNICIAN 05/21/2024 4:50 PM FOOD TECHNICIAN Narrative [facility] - 05/22/2024 4:17 PM FOOD TECHNICIAN Reflex us Leo Henry MD LAB BLOOD ORDERABLES Final Result [facility] Department [place] [address] * Dexa Axial Skeleton Bone Density 1 or 2 Site (08/02/2022 10:53 AM CDT) Anatomical Region Laterality Modality Body N/A Radiographic Lizeth ging Narrative 08/02/2022 3:34 PM CDT Patient Name: Karly Marques Date of : 1955 Date of scan: 08/02/2022 Bone mineral density was performed on a [employer] Discovery Densitometer. Based on machine cross-calibration and [...] by the International Society of Clinical Densitometry. [id number] Khris Arthur MD [facility] DXA PROCEDURES F inal Result * COLONOSCOPY [...] this written report and agrees with it. [facility]# Date Time Exam [id number] Aug 19, 2016 14:27:00 [facility] 12064 Diag Mamm, inc CAD, unilat L Technologist(s): Carla Harris; ; [id number] Aug 19, 2016 15:39:00 [facility] [id number] Breast US unilateral, ltd L ACC# Date Time Exam [id number] Aug 19, 2016 14:27:00 [facility] 11005 Diag Mamm, inc CAD, unilat L Technologist(s): Carla Harris; ; [id number] Aug 19, 2016 15:39:00 [facility] 44930 Breast US unilateral, ltd L EXAMINATION: LEFT [...] SARABIA M.D. on Aug 19 2016 4:20P [id number] Procedure Note Miscellaneous, Not In File / Provider, Historical, MD - 09/17/2016 ANTHONY SARABIA M.D. JUDY RINCON M.D. FINAL REPORT The radiology attending physician has personally reviewed this study, and has reviewed and/or edited this written report and agrees with it. ACC# Date Time Exam [id number] Aug 19, 2016 14:27:00 [facility] 60029 Diag Mamm, inc CAD, unilat L Technologist(s): Carla Harris; ; [id number] Aug 19, 2016 15:39:00 [facility] 13662 Breast US unilateral, ltd L ACC# Date Time Exam [id number] Aug 19, 2016 14:27:00 [facility] 05691 Diag Mamm, inc CAD, unilat L Technologist(s): Carla Harris; ; [id number] Aug 19, 2016 15:39:00 C [id number] Breast US unilateral, ltd L EXAMINATION: LEFT [...] SARABIA M.D. on Aug 19 2016 4:20P [id number] us Not In File Miscellaneous IMG MAMMO PROCEDURES F inal Result from Last 3 Months or Most Recently Relevant to Health Maintenance Insurance [facility] MEDICARE ADVANTAGE [facility] MEDICARE ADVANTAGE [employer] MEDICARE ADVANTAGE Advance Directives For more information, please contact: [phone] Documents on File Type Date Recorded Patient Riddler Operator Expl anation ADVANCE DIRECTIVE 12/23/2021 2:49 PM Power of Fire Inspector-Medical ADVANCE DIRECTIVE 12/23/2021 2:49 PM Living Will [...] First Alternate Health Care Agent Care Teams Ear Machine Operator Relationship Specialty Start Date End Date Justen Gale MD 2 [facility] [address] [place] [address] PCP - General 10/09/17 Liu Jerez MD Consulting Physician Gastroenterology 07/28/17 [place] [address] [facility] [address] [place] [address] Consulting Physician Pulmonary Disease 08/03/17 Khris Arthur MD [address] [facility] [address] [place] [address] Medical Oncologist/Safety Manager Medical Oncology 10/23/17 [place] [address] [facility] [address] [place] [address] Surgeon Orthopedic Surgery 10/23/17 [place] [address] [facility] [address] [place] [address] Consulting Physician Pain Management 10/23/17 [place] [address] [facility] [address] [place] [address] Referring Physician General Surgery 01/26/18 [place] [address] [facility] [address] [place] [address] Consulting Physician Neurology 01/26/18
--- OUTSIDE RECORDS SUMMARY | 2024-10-03 00:21 | XMS_ITS | Encounter Summary ---
Author Organization [facility] Address [address] [place] [address] Phone Care Team Providers Care Injection Machine Operator Name Role Phone Justen Gale MD Primary Care Provider David Roberts APRN, DIRECTOR WRITING Unavailable [phone] Annel Rod MD Unavailable Reason for Visit * Reason Onset Date Comments Medication Refill 08/06/2020 Encounter Details Date Type Department Care Team (Late st Contact Info) Description 08/06/2020 Refill [facility] #2 [facility] [id number] Justen Gale MD #[address] [address] Medication Refill Social History Tobacco Use Types [...] Outpatient Visits 2 weeks ago CRP elevated [facility] Pili Mueller APN, DIRECTOR WRITING 2 months ago Increased urinary frequency [facility] Pili Mueller APN, DIRECTOR WRITING 5 months ago Urinary frequency [facility] Pili Mueller APN, DIRECTOR WRITING 8 months ago Type 2 diabetes mellitus with diabetic polyneuropathy, with long- term current use of insulin (HCC) [facility] Pili Mueller APN, DIRECTOR WRITING 9 months ago Nausea [facility] Justen Urbano MD Upcoming Appointments Future Appointments In 6 days Pili Elkins APN, DIRECTOR WRITING [facility] SP[facility]AL [facility]IND[facility] - Recent and Past Visits Recent Visits Date Type Provider Dept 07/20/20 Office Visit Pili Elknis APN, DIRECTOR WRITING [facility] 06/05/20 Office Visit Pili Elknis APN, NETTA [facility] 02/17/20 Office Visit Pili Elkins APN, NETTA [facility] 12/03/19 Office Visit Pili Elkins APN, NETTA [facility] 11/05/19 Telemedicine Justen Gale MD [facility] 07/25/19 Telemedicine [facility] recent visits within past 460 days with a meds authorizing provider and meeting all other requirements Future Appointments Date Type Provider Dept 08/12/20 Appointment Pili Elkins APN, CNP [facility] Showing future appointments within next 90 days [...] [facility] - [place] [address] [place] [address] Annel Rod MD #[address] [address] 11/13/2024 2:00 PM CDT Appointment [facility] [address] [place] [address] Angelito Alegria TRANSACTIONAL PARALEGAL, DIRECTOR WRITING #2 [facility] [address] [place] [address] Discharge Disposition: Discharged to home or Selfcare documented as of this encounter Visit Diagnoses Not on filedocumented in this encounter Additional Health Concerns Infection Onset Date Last Indicated Resolved Time COVID - 19 08/01/2024 08/01/2024 08/01/2024 3:20 PM CDT Assessment Noted Time PHQ-9 Depression Total Score: 0 07/21/19 3:00 PM CDT documented as of this encounter Care Teams Injection Machine Operator Relationship Specialty Start Date End Date Justen Gale MD #[address] [address] PCP - General Family Medicine 10/17/17 David Roberts APRN, DIRECTOR WRITING #2 [place] [address] Nurse Practitioner Advanced Practice Nurse 01/31/22 Annel Rod MD #[address] [address] Consulting Physician Endocrinology 07/01/22 documented as of this encounter
--- OUTSIDE RECORDS SUMMARY | 2024-10-03 00:21 | XMS_ITS | Encounter Summary ---
Author Organization [facility] Address [address] [place] [address] Phone Care Team Providers Care Buttonhole Maker Hand Name Role Phone Justen Gale MD Primary Care Provider David Roberts APRN, HARDWOOD FLOOR SANDER Unavailable [phone] Annel Rod MD Unavailable Reason for Visit * Reason Comments Medication Refill Encounter Details Date Type Department Care Team (Late st Contact Info) Description 02/17/2021 Refill [facility] #2 [place] [phone] Justen Gale MD #[address] [address] Medication Refill Social History Tobacco Use Types [...] Mcge[facility] 06/05/20 Office Visit Pili Elkins APRN, HARDWOOD FLOOR SANDER [facility] Showing recent visits within past 365 days and meeting all other requirements Future Appointments Date Type Provider Dept 03/02/21 Appointment Vince Hermosillo MD [facility] Showing future appointments within next 90 days and meeting all other requirements documented in this encounter Plan of Treatment Upcoming Encounters Date Type Department Care Team (Late st Contact Info) Description 10/22/2024 11:15 AM CDT Office Visit [facility] Endocr[facility] #2 [place] [address] Annel Rod MD #2 [facility] [address] [place] [address] 11/13/2024 2:00 PM CDT Appointment [facility] Cardiology Services [address] [place] [address] Angelito Alegria, ER TECH, HARDWOOD FLOOR SANDER #2 [facility] [address] [place] [address] Discharge Disposition: Discharged to home or Selfcare documented as of this encounter Visit Diagnoses Not on filedocumented in this encounter Additional Health Concerns Infection Onset Date Last Indicated Resolved Time COVID - 19 08/01/2024 08/01/2024 08/01/2024 3:20 PM CDT Assessment Noted Time PHQ-9 Depression Total Score: 0 07/21/19 3:00 PM CDT documented as of this encounter Care Teams Buttonhole Maker Hand Relationship Specialty Start Date End Date Justen Gale MD #[address] [address] PCP - General Family Medicine 10/17/17 David Roberts ER TECH, HARDWOOD FLOOR SANDER #[address] [place] [address] Nurse Practitioner Advanced Practice Nurse 01/31/22 Annel Rod MD #[address] [address] Consulting Physician Endocrinology 07/01/22 documented as of this encounter
--- OUTSIDE RECORDS SUMMARY | 2024-10-03 00:21 | XMS_ITS ---
Author Organization [facility] Address [address] [place] [address] Care Team Providers Care Scrap Cutter Name Role Phone Liu Jerez MD Unavailable Albert Corbin MD Unavailable Justen Gale MD Primary Care Provider Khris Arthur MD Unavailable [phone] Ko Melendez MD Unavailable John Paul Moyer MD Unavailable Annel Rod MD Unavailable Anali MARSHALL MD, Carlos M. Unavailable Active Problems Problem Noted Date Diagnosed Date Urinary tract infection 05/22/2024 Assessment & Plan (05/26/2024 10:08 AM TECHNICAL MGR): Presenting with urinary symptoms of right flank [...] 05/22/2024 Assessment & Plan (05/25/2024 7:52 AM TECHNICAL MGR): Hx of breast cancer c/b DVT/bilateral Pes [...] 05/22/2024 Assessment & Plan (05/22/2024 1:14 PM TECHNICAL MGR): -long-standing chronic back pain -CT L spine [...] 09/12/2021 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) 2021 assisted (current) use 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 inhibitors 10/17/2019 Thyroid [...] use of insulin [facility]) 10/23/2017 Assessment & Plan (10/23/2017 2:06 AM [...] 10/13/2017 Assessment & Plan (05/22/2024 12:29 PM TECHNICAL MGR): -Hx stage II, ER positive, HER2 negative [...] 08/01/2017 Assessment & Plan (05/22/2024 12:33 PM TECHNICAL MGR): -Hx LUL -Hospital provided CPAP ordered History of DVT (deep vein thrombosis) 08/01/2017 History of pulmonary embolism 08/01/2017 Generalized weakness 07/27/2017 Dyspnea 07/27/2017 Unintentional weight loss 07/27/2017 Acute cystitis without hematuria 07/27/2017 Nausea and vomiting 07/26/2017 Overview (07/28/2017): Added automatically from request for surgery [id number] Pulmonary embolism 08/09/2016 Assessment & Plan (10/23/2017 2:05 AM CDT): On Rivaroxaban Lymphedema of left upper extremity 08/09/2016 Assessment & Plan (05/25/2024 7:53 AM TECHNICAL MGR): S/p L axillary lymph node dissection 2014, [...] syndrome Assessment & Plan (05/22/2024 11:18 AM TECHNICAL MGR): -continue home Requip 5mg nightly Pain of lower extremity 03/12/2013 Overview (07/29/2016): Leg pain Essential hypertension Assessment & Plan (05/23/2024 10:42 AM TECHNICAL MGR): -Chart history of HTN but not on meds -BP elevated on admission, likely some pain contributing -Monitor closely once pain under adequate control, discussed following up with PCP for this Chronic anticoagulation Restless leg syndrome 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
--- OUTSIDE RECORDS SUMMARY | 2024-10-03 00:21 | XMS_ITS | Encounter Summary ---
Author Organization [facility] Address [address] [place] [address] Phone Care Team Providers Care Electrical Development Engineer Name Role Phone Justen Gale MD Primary Care Provider [phone] David Roberts APRN, SYSTEMS DEVELOPMENT MANAGER Unavailable [phone] Annel Rod MD Unavailable Reason for Visit * Reason Onset Date Comments Sore Throat 06/29/2020 Encounter Details Date Type Department Care Team (Late st Contact Info) Description 06/29/2020 Telephone [facility] #[address] [place] [address] Justen Gale MD #[address] [address] Sore Throat Social History Tobacco Use Types [...] COVID-19? No / Unsure 06/29/2020 8:43 AM PERSONAL ASSISTANT documented as of this encounter Miscellaneous Notes * Telephone Encounter - Gail Lucero RN - 06/29/2020 3:53 PM CST Attempted to call mailbox is full. Pt does not need testing ONAL ASSISTANT * Telephone Encounter - Vince Hermosillo MD - 06/29/2020 3:13 PM CST No covid testing needed. If the er thought that it was warranted then they would have done this. ONAL ASSISTANT * Telephone Encounter - Marlys Sorensen RN - 06/29/2020 8:36 AM CST Patient calling. Patient is calling to schedule Hospital/ED/Prompt-Care follow up appointment. Hospital/ED/Prompt-[facility] Site: [facility] ED Records Requested: Yes Reason for [...] f/up and yearly PAP appointments? Please advise. ONAL ASSISTANT documented in this encounter Plan of Treatment Upcoming Encounters Date Type Department Care Team (Late st Contact Info) Description 10/22/2024 11:15 AM CDT Office Visit [facility] Endocrinology - [address] [place] [address] Annel Rod MD #2 [facility] [address] [place] [address] 11/13/2024 2:00 PM CDT [facility]ment [facility] 1 [place] [address] Angelito Alegria, HOT DOG VENDER, SYSTEMS DEVELOPMENT MANAGER #2 [facility] [address] [place] [address] Discharge Disposition: Discharged to home or Selfcare documented as of this encounter Visit Diagnoses Not on filedocumented in this encounter Additional Health Concerns Infection Onset Date Last Indicated Resolved Time COVID - 19 08/01/2024 08/01/2024 08/01/2024 3:20 PM CDT Assessment Noted Time PHQ-9 Depression Total Score: 0 09/08/19 19 1:00 PM CDT documented as of this encounter Care Teams Electrical Development Engineer Relationship Specialty Start Date End Date Justen Gale MD #2 [facility] [address] [place] [address] PCP - General Family Medicine 10/17/17 David Roberts APRN, SYSTEMS DEVELOPMENT MANAGER #2 [place] [address] Nurse Practitioner Advanced Practice Nurse 01/31/22 Annel Rod MD #2 [facility] [address] [place] [address] Consulting Physician Endocrinology 07/01/22 documented as of this encounter
--- OUTSIDE RECORDS SUMMARY | 2024-10-03 00:21 | XMS_ITS | Clinical Summary ---
Author Organization [facility] Address [address] [place] [address] Care Team Providers Care Medical Malpractice Paralegal Name Role Phone Liu Jerez MD Unavailable Albert Corbin MD Unavailable Justen Gale MD Primary Care Provider Khris Arthur MD Unavailable [phone] Ko Melendez MD Unavailable [phone] John Paul Moyer MD Unavailable Annel Rod [...] 05/22/2024 Assessment & Plan (05/26/2024 10:08 AM FABRIC WORKER SUPERVISOR): Presenting with urinary symptoms of right [...] 05/22/2024 Assessment & Plan (05/25/2024 7:52 AM FABRIC WORKER SUPERVISOR): Hx of breast cancer c/b DVT/bilateral [...] 05/22/2024 Assessment & Plan (05/22/2024 1:14 PM FABRIC WORKER SUPERVISOR): -long-standing chronic back pain -CT L [...] 09/12/2021 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) 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 10/17/2019 [...] current use of insulin ([facility]) 10/23/2017 Assessment & [...] 10/13/2017 Assessment & Plan (05/22/2024 12:29 PM FABRIC WORKER SUPERVISOR): -Hx stage II, ER positive, HER2 [...] 08/01/2017 Assessment & Plan (05/22/2024 12:33 PM FABRIC WORKER SUPERVISOR): -Hx LUL -Hospital provided CPAP ordered History of DVT (deep vein thrombosis) 08/01/2017 History of pulmonary embolism 08/01/2017 Generalized weakness 07/27/2017 Dyspnea 07/27/2017 Unintentional weight loss 07/27/2017 Acute cystitis without hematuria 07/27/2017 Nausea and vomiting 07/26/2017 Overview (07/28/2017): Added automatically from request for surgery [id number] Pulmonary embolism 08/09/2016 Assessment & Plan (10/23/2017 2:05 AM CDT): On Rivaroxaban Lymphedema of left upper extremity 08/09/2016 Assessment & Plan (05/25/2024 7:53 AM FABRIC WORKER SUPERVISOR): S/p L axillary lymph node dissection [...] syndrome Assessment & Plan (05/22/2024 11:18 AM FABRIC WORKER SUPERVISOR): -continue home Requip 5mg nightly Pain of lower extremity 03/12/2013 Overview (07/29/2016): Leg pain Essential hypertension Assessment & Plan (05/23/2024 10:42 AM FABRIC WORKER SUPERVISOR): -Chart history of HTN but not on meds -BP elevated on admission, likely some pain contributing -Monitor closely once pain under adequate control, discussed following up with PCP for this Chronic anticoagulation Restless leg syndrome 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 Type 2 diabetes mellitus without complication Assessment & Plan (05/24/2024 1:39 PM FABRIC WORKER SUPERVISOR): -Last Ha1c 8.4 in 2023, repeat [...] pur e alcohol) [facility] [employer] Answer Date Recorded In the past 12 months has Sape, gas, oil, or water [employer] threatened to shut off services in your [...] often do you attend chur ch or anabaptist services? More than 4 times per year [...] on file Legal Sex Female 12:24 AM FABRIC WORKER SUPERVISOR Gender Identity Not on file Sexual [...] CDT HEMOGLOBIN A1C STAT 05/21/2024 4:20 PM FABRIC WORKER SUPERVISOR LIPID PANEL STAT 05/21/2024 4:20 PM FABRIC WORKER SUPERVISOR DEXA AXIAL SKELETON BONE DENSITY 1 OR [...] reviewed 2021. Testing performed by: [facility], [address] [place] [address]., [id number] Blood 07/01/2024 2:02 PM CDT 07/01/2024 2:12 PM CDT us Ilana Stevens MD LAB BLOOD ORDERABLES F inal Result Performing Organization Address City/[facility]/ZIP Co de Phone Number [place] [phone] [facility] Department [place] [address] * (ABNORMAL) Hemoglobin A1c (05/21/2024 4:20 PM FABRIC WORKER SUPERVISOR) [facility] Hgb A1C 8.7(H) 4.0 - 5.6 % Estimated Average Glucose 203 mg/dL [facility] Comment: The ADA recommends reporting an estimated Average Glucose (eAG) with all Hemoglobin A1c results using the equation derived from a study of 507 normal and diabetic adults. Minority populations were underrepresented and children were not included. (Diabetes Care 2020; 43(S1): S66-S76). The eAG is not equivalent to a fasting glucose. Blood 05/21/2024 4:20 PM FABRIC WORKER SUPERVISOR 05/21/2024 4:55 PM FABRIC WORKER SUPERVISOR us Leo Henry MD LAB BLOOD ORDERABLES Final Result [facility] Department [place] [address] * (ABNORMAL) Lipid panel (05/21/2024 4:20 PM FABRIC WORKER SUPERVISOR) Cholesterol 205(H) 30 - 199 mg/dL [...] 2017. Triglycerides 92 <=149 mg/dL [facility] Comment: Interpretive Data Ages < or [...] 2017. HDL 55 >=40 mg/dL [facility] Comment: Interpretive Data Ages < or [...] LDL, calculated 134(H) <=129 mg/dL [facility] Comment: Interpretive Data Ages < or [...] on 2023. Non-HDL Cholesterol 150 mg/dL [facility] Comment: Interpretive Data Ages < or [...] revised on 2017. Chol/HDL ratio 4 [facility] Blood 05/21/2024 4:20 PM FABRIC WORKER SUPERVISOR 05/21/2024 4:50 PM FABRIC WORKER SUPERVISOR Narrative [facility] - 05/22/2024 4:17 PM FABRIC WORKER SUPERVISOR Reflex us Leo Henry MD LAB BLOOD ORDERABLES Final Result [facility] Department [place] [address] * Dexa Axial Skeleton Bone Density 1 or 2 Site (08/02/2022 10:53 AM CDT) Anatomical Region Laterality Modality Body N/A Radiographic Lizeth ging Narrative 08/02/2022 3:34 PM CDT Patient Name: Karly Marques Date of : 1955 Date of scan: 08/02/2022 Bone mineral density was performed on a [employer] Discovery Densitometer. Based on machine cross-calibration and [...] by the International Society of Clinical Densitometry. [id number] us Khris Arthur MD IMG DXA PROCEDURES [...] agrees with it. ACC# Date Time Exam [id number] Aug 19, 2016 14:27:00 [facility] [id number] [employer] CAD, unilat L Technologist(s): Carla Harris; ; [id number] Aug 19, 2016 15:39:00 [facility] [id number] Breast US unilateral, ltd L ACC# Date Time Exam [id number] Aug 19, 2016 14:27:00 [facility] [id number] [employer] CAD, unilat L Technologist(s): Carla Harris; ; [id number] Aug 19, 2016 15:39:00 [facility] [id number] Breast US unilateral, ltd L EXAMINATION: LEFT [...] SARABIA M.D. on Aug 19 2016 4:20P [id number] Procedure Note Miscellaneous, Not In File / Provider, MD Tyler - 09/17/2016 Avery DOYLE M.D. FINAL REPORT The radiology attending physician has personally reviewed this study, and has reviewed and/or edited this written report and agrees with it. ACC# Date Time Exam [id number] Aug 19, 2016 14:27:00 [facility] [id number] Diag Mamm, inc CAD, unilat L Technologist(s): Carla Harris; ; [id number] Aug 19, 2016 15:39:00 [facility] [id number] Breast US unilateral, ltd L ACC# Date Time Exam [id number] Aug 19, 2016 14:27:00 [facility] [id number] Diag [employer] inc CAD, unilat L Technologist(s): Carla Harris; ; [id number] Aug 19, 2016 15:39:00 [facility] [id number] Breast US unilateral, ltd L EXAMINATION: LEFT [...] SARABIA M.D. on Aug 19 2016 4:20P [id number] us Not In File Miscellaneous IMG MAMMO PROCEDURES F inal Result from Last 3 Months or Most Recently Relevant to Health Maintenance Insurance [employer]PA UHC MEDICARE ADVANTAGE [facility] Address: [address] [address] [place] [address] UHC MEDICARE ADVANTAGE UHC MEDICARE ADVANTAGE Advance Directives For more information, please contact: [phone] Documents on File Type Date Recorded Patient Senior Hardware Design Engineer Expl anation ADVANCE DIRECTIVE 12/23/2021 2:49 PM Power of Yarn Mercerizer Operator Helper-Medical ADVANCE DIRECTIVE 12/23/2021 2:49 PM Living [...] Agents on File Name Relationship Healthcare [facility] Yunior Marques Daughter Health Care Agent Jimmie Marques Spouse First Alternate Health Care Agent Care Teams Medical Malpractice Paralegal Relationship Specialty Start Date End Date Justen Gale MD [facility] [address] [place] [address] PCP - General 10/09/17 Liu Jerez MD Consulting Physician Gastroenterology 07/28/17 [place] [address] [facility] [address] [place] [address] Consulting Physician Pulmonary Disease 08/03/17 [place] [address] [place] [address] [address] [place] [address] Medical Oncologist/Multimedia Editor Medical Oncology 10/23/17 [place] [address] [facility] [address] [place] [address] Surgeon Orthopedic Surgery 10/23/17 [place] [address] [address] Consulting Physician Pain Management 10/23/17 [place] [address] [address] Referring Physician General Surgery 01/26/18 [place] [address] [facility] [address] [place] [address] Consulting Physician Neurology 01/26/18
--- OUTSIDE RECORDS SUMMARY | 2024-10-03 00:21 | XMS_ITS | Encounter Summary ---
Author Organization [facility] Address [address] [place] [address] Phone Care Team Providers Care Tax Appraiser Name Role Phone Justen Gale MD Primary Care Provider David Roberts APRN, TRANSPORTATION SALES CONSULTANT Unavailable Annel Rod MD Unavailable Reason for Visit * Reason Comments Medication Refill Encounter Details Date Type Department Care Team (Late st Contact Info) Description 03/13/2021 Refill [facility] [address] [place] [address] Justen Gale MD #[address] [address] Medication Refill Social History Tobacco [...] COVID-19? No / Unsure 03/02/2021 5:05 PM GANG SAW OPERATOR documented as of this encounter Plan of Treatment Upcoming Encounters Date Type Department Care Team (Late st Contact Info) Description 10/22/2024 11:15 AM CDT Office Visit [facility] Endocrin[facility] #2 [place] [address] Annel Rod MD #2 [facility] [address] [place] [address] 11/13/2024 2:00 PM CDT [facility] 1 [place] [address] Angelito Alegria, NURSING TECHNICIAN, TRANSPORTATION SALES CONSULTANT #2 [facility] [address] [place] [address] Discharge Disposition: Discharged to home or Selfcare documented as of this encounter Visit Diagnoses Not on filedocumented in this encounter Additional Health Concerns Infection Onset Date Last Indicated Resolved Time COVID - 19 08/01/2024 08/01/2024 08/01/2024 3:20 PM CDT Assessment Noted Time PHQ-9 Depression Total Score: 0 07/21/19 3:00 PM CDT documented as of this encounter Care Teams Tax Appraiser Relationship Specialty Start Date End Date Justen Gale MD #[address] [address] PCP - General Family Medicine 10/17/17 David Roberts APRN, TRANSPORTATION SALES CONSULTANT #2 [place] [address] Nurse Practitioner Advanced Practice Nurse 01/31/22 Annel Rod MD #2 [place] [id number] Consulting Physician Endocrinology 07/01/22 documented as of this encounter
--- OUTSIDE RECORDS SUMMARY | 2024-10-03 00:21 | XMS_ITS | Encounter Summary ---
Author Organization [facility] Address [address] [place] [address] Phone Care Team Providers Care Beater Machine Operator Name Role Phone Justen Gale MD Primary Care Provider David Roberts APRN, FRETTED INSTRUMENT MAKER HAND Unavailable Annel Rod MD Unavailable Reason for Visit * Reason Comments Medication Refill Encounter Details Date Type Department Care Team (Late st Contact Info) Description 02/07/2020 Refill [facility] [address] [place] [address] Justen Gale MD #[address] [address] Medication Refill Social History Tobacco Use Types [...] Visit [facility] Endocrinology - [place] #2 [place] [address] Annel Rod MD #[address] [address] 11/13/2024 2:00 PM CDT [facility]ment [facility] 1 [place] [address] Angelito Alegria APRN, FRETTED INSTRUMENT MAKER HAND #2 [facility] [address] [place] [address] Discharge Disposition: Discharged to home or Selfcare documented as of this encounter Visit Diagnoses Not on filedocumented in this encounter Additional Health Concerns Infection Onset Date Last Indicated Resolved Time COVID - 19 08/01/2024 08/01/2024 08/01/2024 3:20 PM CDT Assessment Noted Time PHQ-9 Depression Total Score: 0 09/08/19 1:00 PM CDT documented as of this encounter Care Teams Beater Machine Operator Relationship Specialty Start Date End Date Justen Gale MD #[address] [address] PCP - General Family Medicine 10/17/17 David Roberts APRN, NETTA [facility] [place] [address] Nurse Practitioner Advanced Practice Nurse 01/31/22 Annel Rod MD #[address] [address] Consulting Physician Endocrinology 07/01/22 documented as of this encounter
--- OUTSIDE RECORDS SUMMARY | 2024-10-03 00:22 | XMS_ITS | Encounter Summary ---
Author Organization [facility] Address [address] [place] [address] Phone Care Team Providers Care Orderly Name Role Phone Justen Gale MD Primary Care Provider [phone] David Roberts APRN, MOLDED GOODS EMBOSSING PRESS OPERATOR Unavailable [phone] Annel Rod MD Unavailable Reason for Visit * Reason Comments Medication Refill Encounter Details Date Type Department Care Team (Late st Contact Info) Description 07/14/2022 Refill [facility] - Family Medicine [facility] #2 [place] [address] Justen Gale MD #[address] [address] Medication Refill Social History Tobacco Use Types [...] Visit [facility] - Endocrinology - [place] #2 [place] [address] Annel Rod MD #2 [facility] [address] [place] [address] 11/13/2024 2:00 PM CDT [facility] 1 [place] [address] Angelito Alegria APRN, MOLDED GOODS EMBOSSING PRESS OPERATOR #2 [facility] [address] [place] [address] Discharge Disposition: Discharged to home or Selfcare documented as of this encounter Visit Diagnoses Not on filedocumented in this encounter Additional Health Concerns Infection Onset Date Last Indicated Resolved Time COVID - 19 08/01/2024 08/01/2024 08/01/2024 3:20 PM CDT Assessment Noted Time PHQ-9 Depression Total Score: 0 07/21/19 21 3:00 PM CDT documented as of this encounter Care Teams Orderly Relationship Specialty Start Date End Date Justen Gale MD #2 [facility] [address] [place] [address] PCP - General Family Medicine 10/17/17 David Roberts, VEHICLE SERVICE ATTENDANT, MOLDED GOODS EMBOSSING PRESS OPERATOR #2 [place] [address] Nurse Practitioner Advanced Practice Nurse 01/31/22 Annel Rod MD #2 [facility] [address] [place] [address] Consulting Physician Endocrinology 07/01/22 documented as of this encounter
--- OUTSIDE RECORDS SUMMARY | 2024-10-03 00:22 | XMS_ITS | Encounter Summary ---
Author Organization [facility] Address [address] [place] [address] Phone Care Team Providers Care Ophthalmic Lens Inspector Name Role Phone Justen Gale MD Primary Care Provider [phone] David Roberts APRN, CUSTOMER CARE MANAGER Unavailable [phone] Annel Rod MD Unavailable Reason for Visit * Reason Onset Date Comments Breathing Problem 08/07/2024 Muscle Pain 08/07/2024 Encounter Details Date Type Department Care Team (Late st Contact Info) Description 08/07/2024 Nurse Triage [facility] [address] [place] [address] Justen Gale MD #[address] [address] Breathing Problem; Muscle Pain Social History Tobacco Use Types Packs/Day Years Used Date Smoking Tobacco: Never Smokeless Tobacco: Never Alcohol Use Standard Drinks/Week Comments No 0 (1 standard drink = 0.6 oz pur e alcohol) [facility] Utilities Answer Date Recorded In the [...] 0 07/23 [facility] - Occupational [...] in the past 12 m [facility], were you homeless or living in a fci (including now)? No 08/06/2024 Education Answer Date [...] reports this was discussed with the front tender and provider was to be notified in [...] Encouraged caller to bring cell phone and wire puller to contact EMS 911 if symptoms [...] (e.g., disoriented, slurred speech) Protocols used: Breathing [id number] * Telephone Encounter - Neha Tomlinson - [...] Visit [facility] - Endocrinology - [place] #2 [place] [address] Annel Rod MD #2 [facility] [address] [place] [address] 11/13/2024 2:00 PM CDT [facility] 1 [place] [address] Angelito Alegria, GANTRY RIGGER, CUSTOMER CARE MANAGER #2 [facility] [address] [place] [address] Discharge Disposition: Discharged to home or Selfcare documented as of this encounter Visit Diagnoses Not on filedocumented in this encounter Additional Health Concerns Assessment Noted Time PHQ-9 Depression Total Score: 0 08/02/19 25 1:09 PM CDT documented as of this encounter Care Teams Ophthalmic Lens Inspector Relationship Specialty Start Date End Date Justen Gale MD #2 [facility] [address] [place] [address] PCP - General Family Medicine 10/17/17 David Roberts APRN, CUSTOMER CARE MANAGER #2 [place] [address] Nurse Practitioner Advanced Practice Nurse 01/31/22 Annel Rod MD #2 [facility] [address] [place] [address] Consulting Physician Endocrinology 07/01/22 documented as of this encounter
--- OUTSIDE RECORDS SUMMARY | 2024-10-03 00:22 | XMS_ITS | Encounter Summary ---
Author Organization [facility] Address [address] [place] [address] Phone Care Team Providers Care Oven Drier Tender Name Role Phone Justen Gale MD Primary Care Provider David Roberts APRN, ROLL UP HELPER Unavailable [phone] Annel Rod MD Unavailable Reason for Visit * Reason Comments Medication Refill Encounter Details Date Type Department Care Team (Late st Contact Info) Description 02/07/2023 Refill [facility] - Family Medicine [facility] #2 [place] [address] Catrina Quiñonez MD #2 [place] [address] Medication Refill Social History Tobacco Use Types [...] MD [facility] 09/16/22 Office Visit Pili Eklins APRN, CNP [facility] 07/05/22 Office Visit Pili Elkins APRN, CNP [facility] 05/02/22 Office Visit Justen Gale MD [facility] [place] 03/03/22 Office Visit Pili Elkins APRN, NETTA [facility] [place] Showing recent visits within past 365 [...] Visit [facility] - Endocrinology - [place] #2 [place] [address] Annel Rod MD #[address] [address] 11/13/2024 2:00 PM CDT Appointment [facility] Cardiology Services [address] [place] [address] Angelito Alegria, C JAVA DEVELOPER, ROLL UP HELPER #[address] [address] Discharge Disposition: Discharged to home or Selfcare documented as of this encounter Visit Diagnoses Not on filedocumented in this encounter Additional Health Concerns Infection Onset Date Last Indicated Resolved Time COVID - 19 08/01/2024 08/01/2024 08/01/2024 3:20 PM CDT Assessment Noted Time PHQ-9 Depression Total Score: 8 01/18/20 2:24 PM CDT documented as of this encounter Care Teams Oven Drier Tender Relationship Specialty Start Date End Date Justen Gale MD #[address] [address] PCP - General Family Medicine 10/17/17 David Roberts C JAVA DEVELOPER, ROLL UP HELPER #2 [place] [address] Nurse Practitioner Advanced Practice Nurse 01/31/22 Annel Rod MD #[address] [address] Consulting Physician Endocrinology 07/01/22 documented as of this encounter
--- OUTSIDE RECORDS SUMMARY | 2024-10-03 00:22 | XMS_ITS | Encounter Summary ---
Author Organization [facility] Address [address] [place] [address] Phone Care Team Providers Care Hot Mix Operator Name Role Phone Justen Gale MD Primary Care Provider [phone] David Roberts APRN, SECURITY INFRASTRUCTURE ENGINEER Unavailable [phone] Annel Rod MD Unavailable Reason for Visit * Reason Comments Medication Refill Encounter Details Date Type Department Care Team (Late st Contact Info) Description 03/02/2023 Refill [facility] #2 [place] [id number] Justen Gale MD #[address] [address] Medication Refill Social History Tobacco Use Types [...] Tamika Villarreal RN - 03/02/2023 8:51 AM NICK SETTER Medication failed the protocol, provider to review [...] 01/17/23 Office Visit Catrina Quiñonez MD [facility] 09/16/22 Office Visit Pili Elkins APRN, CNP [facility] 07/05/22 Office Visit Pili Elkins APRN, NETTA [facility] 05/02/22 Office Visit Justen Gale MD [facility] 03/03/22 Office Visit Pili Elkins APRN, NETTA [facility] Showing recent visits within past 365 days and meeting all other requirements Future Appointments No visits were found meeting these conditions. Showing future appointments within next 90 days and meeting all other requirements SETTER documented in this encounter Plan of Treatment Upcoming Encounters Date Type Department Care Team (Late st Contact Info) Description 10/22/2024 11:15 AM CDT Office Visit [facility] Endocr[facility]ology - [place] #2 [place] [address] Annel Rod MD #[address] [phone] 11/13/2024 2:00 PM CDT Appointment [facility] Cardiology Services 1 [place] [address] Angelito Alegria, STUDIO CONTROL OPERATOR, SECURITY INFRASTRUCTURE ENGINEER #[address] [address] Discharge Disposition: Discharged to home or Selfcare documented as of this encounter Visit Diagnoses Not on filedocumented in this encounter Additional Health Concerns Infection Onset Date Last Indicated Resolved Time COVID - 19 08/01/2024 08/01/2024 08/01/2024 3:20 PM CDT Assessment Noted Time PHQ-9 Depression Total Score: 8 01/18/20 2:24 PM CDT documented as of this encounter Care Teams Hot Mix Operator Relationship Specialty Start Date End Date Justen Gale MD #[address] [address] PCP - General Family Medicine 10/17/17 David Roberts APRN, SECURITY INFRASTRUCTURE ENGINEER #2 [place] [address] Nurse Practitioner Advanced Practice Nurse 01/31/22 Annel Rod MD #[address] [address] Consulting Physician Endocrinology 07/01/22 documented as of this encounter
--- OUTSIDE RECORDS SUMMARY | 2024-10-03 00:22 | XMS_ITS | Clinical Summary ---
Author Organization [facility] Address [address] [place] [address] Phone Care Team Providers Care Punchboard Inserter Name Role Phone Justen Gale MD Primary Care Provider [phone] Allergies Active Allergy Reactions Criticality Noted Date [...] - 6.0 % 09/29/2017 10:28 AM CDT [employer] [facility] EST. AVG GLUCOSE, A1C 186 mg/dL 09/29/2017 10:28 AM CDT Zyrra Niko Niko [facility] Blood Venipuncture / Unknown 09/28/2017 8:41 PM CDT 09/28/2017 8:46 PM CDT Narrative [facility] - 09/29/2017 10:28 AM CDT HGB A1C INTERPRETATION NORMAL: <5.7% PRE-DIABETES: 5.7 - 6.4% DIABETES: 6.5% OR GREATER us Francisco Castaneda MD CHEMISTRY ORDERABLES Final Resul t [facility] Niko Niko [facility]# [id number] [address] [place] [address] * (ABNORMAL) LIPID PANEL (09/28/2017 8:41 PM CDT) CHOLESTEROL 174 <200 mg/dL 09/30/2017 2:45 AM CDT [facility] Niko Niko [facility] TRIGLYCERIDE 109 <150 mg/dL 09/30/2017 2:45 AM CDT [facility] Niko Niko [facility] HDL 45 40 - 59 mg/dL 09/30/2017 2:45 AM CDT [facility] Niko Niko [facility] LDL CALCULATED 107(H) <100 mg/dL 09/30/2017 2:45 AM CDT [facility] Niko Niko [facility] NON-HDL CHOLESTEROL 129 <130 mg/dL 09/30/2017 2:45 AM CDT [facility] Niko Niko [facility] Blood Venipuncture / Unknown 09/28/2017 8:41 PM CDT 09/28/2017 8:46 PM CDT Narrative [facility] - 09/30/2017 2:45 AM CDT TOTAL [...] Castaneda MD CHEMISTRY ORDERABLES Final Resul t [facility] Nik[facility] [id number] [address] [facility] [place] [place] [address] from Last 3 Months or Most Recently Relevant to Health Maintenance Insurance Advance Directives For more information, please contact: [phone] * Full Code (Latest Code Status on File) Date Activated Date Inactivated Comments 09/29/2017 7:45 AM 09/30/2017 9:14 PM * Full Code Date Activated Date Inactivated Comments 09/29/2017 1:25 AM 09/29/2017 7:45 AM Care Teams Punchboard Inserter Relationship Specialty Start Date End Date Justen Gale MD [address] [facility] [address] [place] [address] PCP - General Cardiovascular Disease 09/14/17
--- OUTSIDE RECORDS SUMMARY | 2024-10-03 00:22 | XMS_ITS | Encounter Summary ---
Author Organization [facility] Address [address] [place] [address] Phone Care Team Providers Care Bacteriologist Industrial Name Role Phone Justen Gale MD Primary Care Provider David Roberts APRN, FILE SYSTEM INSTALLER Unavailable Annel Rod MD Unavailable Encounter Details Date Type Department Care Team (Late st Contact Info) Description 06/05/2020 [facility] 1 [place] [address] Pili Elkins APRN, FILE SYSTEM INSTALLER #[address] [address] Frequency of micturition Social History [...] COVID-19? No / Unsure 2020 11:37 AM JOB PRINTER documented as of this encounter Plan of Treatment Upcoming Encounters Date Type Department Care Team (Late st Contact Info) Description 10/22/2024 11:15 AM CDT Office Visit [facility] - [place] #2 [place] [address] Annel Rod MD #2 [facility] [address] [place] [address] 11/13/2024 2:00 PM CDT [facility] 1 [place] [address] Angelito Alegria, ZAMZAM, FILE SYSTEM INSTALLER #2 [facility] [address] [place] [address] Discharge Disposition: Discharged to home or Selfcare documented as of this encounter Procedures Procedure Name Priority Date/Time Associated Diagnosis Comments URINALYSIS REFLEX IF INDICATED BY ABNORMAL RESULTS Routine 06/05/2020 4:45 PM JOB PRINTER Frequency of micturition documented in this encounter Results * (ABNORMAL) URINALYSIS REFLEX IF INDICATED BY ABNORMAL RESULTS (06/05/2020 4:45 PM JOB PRINTER) SPECIFIC GRAVITY 1.020 1.003 - 1.030 06/05/2020 5:19 PM JOB PRINTER [facility] URINE PH 5.0 5.0 - 9.0 06/05/2020 5:19 PM JOB PRINTER [facility] WBC ESTERASE Negative Negative 06/05/2020 5:19 PM JOB PRINTER [facility] NITRITE Negative Negative 06/05/2020 5:19 PM JOB PRINTER [facility] PROTEIN, RANDOM URINE Negative Negative 06/05/2020 5:19 PM JOB PRINTER [facility] URINE GLUCOSE, QUAL Negative Negative 06/05/2020 5:19 PM JOB PRINTER [facility] URINE KETONES Negative Negative 06/05/2020 5:19 PM JOB PRINTER [facility] UROBILINOGEN Normal Normal mg/dL 06/05/2020 5:19 PM JOB PRINTER [facility] URINE BILIRUBIN Negative Negative 5:19 PM JOB PRINTER [facility] URINE BLOOD 25 /uL(A) Negative leandro/ul 06/05/2020 5:19 PM JOB PRINTER [facility] URINALYSIS COLOR Yellow 06/05/19 5:19 PM JOB PRINTER [facility] URINALYSIS CLARITY Clear 06/05/2020 5:19 PM JOB PRINTER [facility] WBC (Urine) 0-5 Negative, 0-5 /hpf 06/05/2020 5:19 PM JOB PRINTER [facility] URINE RBC'S 3-5(A) Negative, 0-2 /hpf 06/05/2020 5:19 PM JOB PRINTER [facility] EPITHELIAL CELLS Small amount /lpf 2020 5:19 PM JOB PRINTER [facility] BACTERIA, URINE Few(A) Negative /hpf 06/05/2020 5:19 PM JOB PRINTER [facility] Urine URINE SPECIMEN / Unknown Non-Phlebotomy Collection / Unknown 06/05/2020 4:45 PM JOB PRINTER 06/05/2020 5:00 PM JOB PRINTER us Pili Elkins DESILVERIZER, FILE SYSTEM INSTALLER URINE ORDERABLES Fin al Result [facility] #1 [place] [address] documented in this encounter Visit Diagnoses Diagnosis Frequency of micturition Urinary frequency documented in this encounter Additional Health Concerns Infection Onset Date Last Indicated Resolved Time COVID - 19 08/01/2024 08/01/2024 08/01/2024 3:20 PM CDT Assessment Noted Time PHQ-9 Depression Total Score: 0 09/08/19 19 1:00 PM CDT documented as of this encounter Care Teams Bacteriologist Industrial Relationship Specialty Start Date End Date Justen Gale MD #2 [facility] [address] [place] [address] PCP - General Family Medicine 10/17/17 David Roberts, DESILVERIZER, FILE SYSTEM INSTALLER #2 [place] [address] Nurse Practitioner Advanced Practice Nurse 01/31/22 Annel Rod MD #2 [facility] [address] [place] [address] Consulting Physician Endocrinology 07/01/22 documented as of this encounter
--- OUTSIDE RECORDS SUMMARY | 2024-10-03 00:22 | XMS_ITS ---
Author Organization [facility] Address [address] [facility] [place] [address] Care Team Providers Care Construction Stonemason Name Role Phone Justen Gale MD Primary Care Provider [phone] Active Problems Problem Noted Date Diagnosed Date [...]
--- OUTSIDE RECORDS SUMMARY | 2024-10-03 00:22 | XMS_ITS | CONTINUITY OF CARE DOCUMENT ---
Author Name ayesha, ayesha Address Unknown Organization [facility] Address [address] [facility] [address] [place] [address] Phone [phone] Care Team Providers Care Petroleum Transport Driver Name Role Phone Yamilet DURÁN, Maico Unavailable ALANIS DURÁN, BRIDGETT Unavailable ALLISON DURÁN, CLARISSE Unavailable PROBLEMS Condition Status Date Provider Notes Shortness of breath active Ivory Rodriguez Palpitations active Radha Seals INSURANCE PROVIDERS Payer name Policy type / Coverage type [place] red libertarian ID UHC MEDICARE COMPLETE HMO Other [id number] [facility] Medicaid 2 [id number] HISTORY OF PROCEDURES Procedure Date Procedure Name Provider Procedure Notes S tatus Stress EKG Carmine Silverio MD complet ed Regadenoson, 4 units Sergey Saldana MD completed Cardiolite, 2 units Sergey Saldana MD completed SPECT Images Carmine Silverio MD compl eted Holter, 24 or 48 Maico Woodard MD co mpleted
--- OUTSIDE RECORDS SUMMARY | 2024-10-03 00:22 | XMS_ITS | Encounter Summary ---
Author Organization [facility] Address [address] [place] [address] Phone Care Team Providers Care Slimer Name Role Phone Justen Gale MD Primary Care Provider David Roberts APRN, FIRE DEPARTMENT BATTALION CHIEF Unavailable [phone] Annel Rod MD Unavailable Reason for Visit * Reason Comments Medication Refill Encounter Details Date Type Department Care Team (Late st Contact Info) Description 10/24/2022 Refill [facility] Family [facility] #2 [place] [address] Pili Elkins APRN, FIRE DEPARTMENT BATTALION CHIEF #[address] [address] Medication Refill Social History Tobacco [...] Office Visit [facility] Endocrinology [facility] #2 [place] [address] Annel Rod MD #[address] [address] 11/13/2024 2:00 PM CDT [facility] 1 [place] [address] Angelito Alegria, DIRECTOR OF FIRST IMPRESSIONS, FIRE DEPARTMENT BATTALION CHIEF #2 [facility] [address] [place] [address] Discharge Disposition: Discharged to home or Selfcare documented as of this encounter Visit Diagnoses Diagnosis Essential hypertension Unspecified essential hypertension documented in this encounter Additional Health Concerns Infection Onset Date Last Indicated Resolved Time COVID - 19 08/01/2024 08/01/2024 08/01/2024 3:20 PM CDT Assessment Noted Time PHQ-9 Depression Total Score: 0 09/17/19 11:00 AM CDT documented as of this encounter Care Teams Slimer Relationship Specialty Start Date End Date Justen Gale MD #[address] [address] PCP - General Family Medicine 10/17/17 David Roberts DIRECTOR OF FIRST IMPRESSIONS, FIRE DEPARTMENT BATTALION CHIEF #2 [place] [address] Nurse Practitioner Advanced Practice Nurse 01/31/22 Annel Rod MD #[address] [address] Consulting Physician Endocrinology 07/01/22 documented as of this encounter
--- OUTSIDE RECORDS SUMMARY | 2024-10-03 00:22 | XMS_ITS | Encounter Summary ---
Author Organization [facility] Address [address] [place] [address] Phone Care Team Providers Care Operations Chief Name Role Phone Justen Gale MD Primary Care Provider [phone] David Roberts APRN, POTATO CHIP PROCESSING SUPERVISOR Unavailable [phone] Annel Rod MD Unavailable Reason for Visit * Reason Onset Date Comments Advice Only 08/19/2024 Follow-up 08/19/2024 Encounter Details Date Type Department Care Team (Late st Contact Info) Description 08/19/2024 Telephone [facility] [place] [facility] #2 [place] [address] Justen Gale MD #[address] [address] Advice Only; Follow-up Social History Tobacco Use Types Packs/Day Years Used Date Smoking Tobacco: Never Smokeless Tobacco: Never Alcohol Use Standard Drinks/Week Comments No 0 (1 standard drink = 0.6 oz pur e alcohol) [facility] Utilities Answer Date Recorded In the [...] Score - Questions 1-9 0 07/23 [facility] - Occupational Stress Questionnaire Answer Date [...] declined 08/06/2024 Housing Stability Vital Sign Answer Modetso e Recorded In the last 12 months, was t here a time when you were not able to pay the mortgage or rent on time? No 08/06/2024 In the past 12 months, how m any times have you moved where you were living? 0 08/06/2024 At any time in the past 12 m [facility], were you homeless or living [...] visit * Telephone Encounter - Angelito Alegria, DELIVERY AND INSTALLATION SUBCONTRACTOR, POTATO CHIP PROCESSING SUPERVISOR - 08/19/2024 9:04 AM CDT Forwarding * Telephone Encounter - Isaura Weiss RN - 08/19/2024 8:37 AM CDT Situation: Strep throat follow up Background: Patient contacting PCP office. Patient was seen in ED on 08/09 and 08/12 in [place] (records in chart). Diagnosed with strep. Assessment: [...] CDT Symptom: Sore Throat Outcome: Transfer to title insurance agent queue Reason: Caller denied all higher acuity questions The caller accepted this outcome. Caller Denied: * Struggling for each breath (severe trouble breathing) * Can't swallow saliva (drooling) documented in this encounter Plan of Treatment Upcoming Encounters Date Type Department Care Team (Late st Contact Info) Description 10/22/2024 11:15 AM CDT Office Visit [facility] - Endocrinology - [place] #2 [place] [address] Annel Rod MD #[address] [address] 11/13/2024 2:00 PM CDT Appointment [facility] Cardiology Services 1 [place] [address] Angelito Alegria, DELIVERY AND INSTALLATION SUBCONTRACTOR, POTATO CHIP PROCESSING SUPERVISOR #[address] [address] Discharge Disposition: Discharged to home or Selfcare documented as of this encounter Visit Diagnoses Not on filedocumented in this encounter Additional Health Concerns Assessment Noted Time PHQ-9 Depression Total Score: 0 08/02/19 25 1:09 PM CDT documented as of this encounter Care Teams Operations Chief Relationship Specialty Start Date End Date Justen Gale MD #2 [facility] [address] [place] [address] PCP - General Family Medicine 10/17/17 David Roberts APRN, POTATO CHIP PROCESSING SUPERVISOR #2 [place] [address] Nurse Practitioner Advanced Practice Nurse 01/31/22 Annel Rod MD #[address] [address] Consulting Physician Endocrinology 07/01/22 documented as of this encounter
--- OUTSIDE RECORDS SUMMARY | 2024-10-03 00:22 | XMS_ITS | Encounter Summary ---
Author Organization [facility] Address [address] [place] [address] Phone Care Team Providers Care Creative Arts Music Therapist Name Role Phone Justen Gale MD Primary Care Provider [phone] David Roberts APRN, ADMISSIONS REPRESENTATIVE Unavailable Annel Rod MD Unavailable Reason for Visit * Reason Comments Medication Refill Encounter Details Date Type Department Care Team (Late st Contact Info) Description 08/30/2022 Refill [facility] #2 [place] [address] Justen Gale MD #[address] [address] Medication Refill Social History Tobacco Use Types [...] [place] 05/02/22 Office Visit Justen Gale MD [facility] [place] 03/03/22 Office Visit Pili Elkins APRN, NETTA [facility] [place] 01/03/22 Office Visit Dannielle Berg PAC [facility] [place] 12/07/21 Office Visit Pili Elkins APRN, NETTA [facility] [place] 11/09/21 Office Visit Pili Elkins APRN, NETTA [facility] [place] 10/08/21 Office Visit Angelito Alegria APRN, NETTA [facility] [place] 08/30/21 [facility] within past [...] Visit [facility] End[facility] - [place] #2 [place] [address] Annel Rod MD #[address] [address] 11/13/2024 2:00 PM CDT [facility]ointment [facility] Cardiology Services 1 [place] [address] Angelito Alegria, REFERENCE TEST CLERK, ADMISSIONS REPRESENTATIVE #[address] [address] Discharge Disposition: Discharged to home or Selfcare documented as of this encounter Visit Diagnoses Not on filedocumented in this encounter Additional Health Concerns Infection Onset Date Last Indicated Resolved Time COVID - 19 08/01/2024 08/01/2024 08/01/2024 3:20 PM CDT Assessment Noted Time PHQ-9 Depression Total Score: 0 07/21/19 3:00 PM CDT documented as of this encounter Care Teams Creative Arts Music Therapist Relationship Specialty Start Date End Date Justen Gale MD #[address] [address] PCP - General Family Medicine 10/17/17 David Roberts, REFERENCE TEST CLERK, ADMISSIONS REPRESENTATIVE #2 [place] [address] Nurse Practitioner Advanced Practice Nurse 01/31/22 Annel Rod MD #[address] [address] Consulting Physician Endocrinology 07/01/22 documented as of this encounter
--- OUTSIDE RECORDS SUMMARY | 2024-10-03 00:22 | XMS_ITS | Encounter Summary ---
Author Organization [facility] Address [address] [place] [address] Phone Care Team Providers Care Document Preparer Microfilming Name Role Phone Lavonne Hathaway MD Primary Care Provider [phone] Liu Jerez MD Unavailable [phone] Albert Corbin MD Unavailable [phone] Justen Gale MD Primary Care Provider [phone] Lavonne Hathaway MD Primary Care Provider [phone] Justen Gale MD Primary Care Provider [phone] Khris Arthur MD Unavailable [phone] Ko Melendez MD Unavailable [phone] John Paul Moyer MD Unavailable Annel Rod MD Unavailable Anali MARSHALL MD, Carlos M. Unavailable [phone] Encounter Details Date Type Department Care Team ([facility] Contact Info) Description 05/15/2017 Orders Only [facility] Scanning, Provider Social History Tobacco Use Types Packs/Day Years Used Date Smoking Tobacco: Former Alcohol Use Standard Drinks/Week Comments No 0 (1 standard drink = 0.6 oz pur e alcohol) Comments Unknown Sex and Gender Information Value Date Recorded Sex Assigned at Not on file Legal Sex Female 12:24 AM MARINE ENGINEERING TEACHER Gender Identity Not on file [...] COVID: Recovered 02/10/2022 02/10/2022 06/10/2022 3:05 AM MARINE ENGINEERING TEACHER Exposure, COVID-19 Comment:Added automatically based on COVID19 lab answers indicating exposure risk 02/11/2022 02/11/2022 02/15/2022 9:06 AM C DT COVID: Suspected 05/14/2022 05/14/2022 05/14/2022 10:41 AM MARINE ENGINEERING TEACHER COVID: Suspected 06/07/2022 06/07/2022 06/07/2022 12:28 PM MARINE ENGINEERING TEACHER COVID: Suspected 06/21/2022 06/21/2022 06/21/2022 2:12 AM MARINE ENGINEERING TEACHER COVID: Suspected 10/05/2022 10/05/2022 10/05/2022 7:40 PM CDT COVID: Suspected 01/04/2024 01/04/2024 01/04/2024 10:30 PM CDT COVID: Suspected 02/14/2024 02/14/2024 02/15/2024 12:36 AM CDT COVID: Suspected 07/01/2024 07/01/2024 07/01/2024 2:53 PM CDT COVID: Suspected 07/01/2024 07/01/2024 07/02/2024 3:05 AM CDT documented as of this encounter Care Teams Document Preparer Microfilming Relationship Specialty Start Date End Date Lavonne Hathaway MD [address] [place] [address] [place] [address] PCP - General 08/16/16 08/17/17 Justen Gale MD [address] [facility] [address] [address] PCP - General 08/18/17 08/22/17 Lavonne Hathaway MD [address] [place] [address] [place] [address] PCP - General Family Medicine 08/23/17 10/08/17 Justen Gale MD 2 [facility] [address] [address] PCP - General 10/09/17 Liu Jerez MD [address] [place] [address] [place] [address] Consulting Physician Gastroenterology 07/28/[address] [place] [address] [facility] [address] [place] [address] Consulting Physician Pulmonary Disease 08/03/17 Khris Arthur MD [address] [facility] [address] [place] [address] Medical Oncologist/Casting Coordinator Medical Oncology 10/23/[address] [place] [address] [facility] [address] [place] [address] Surgeon Orthopedic Surgery 10/23/17 [place] [address] [facility] [address] [place] [address] Consulting Physician Pain Management 10/23/17 [place] [address] [facility] [address] [place] [address] Referring Physician General Surgery 01/26/18 [place] [address] [facility] [address] [place] [address] Consulting Physician Neurology 01/26/18 documented as of this encounter
--- OUTSIDE RECORDS SUMMARY | 2024-10-03 00:22 | XMS_ITS | Encounter Summary ---
Author Organization [facility] Address [address] [place] [address] Phone Care Team Providers Care Junior Accountant Name Role Phone Justen Gale MD Primary Care Provider [phone] David Roberts APRN, AGENCY MANAGER Unavailable Annel Rod MD Unavailable Reason for Visit * Reason Comments Medication Refill Encounter Details Date Type Department Care Team (Late st Contact Info) Description 07/12/2022 Refill [facility] - Family Medicine [facility] [address] [place] [address] Justen Gale MD #[address] [address] Medication Refill Social History Tobacco Use Types [...] 07/05/22 Office Visit Pili Elkins APRN, NETTA [facility] [place] 05/02/22 Office Visit Justen Gale MD [facility] [place] 03/03/22 Office Visit Pili Elkins APRN, AGENCY MANAGER [facility] [place] 01/03/22 Office Visit Dannielle Berg PAC [facility] [place] 12/07/21 Office Visit Pili Elkins APRN, NETTA [facility] [place] 11/09/21 Office Visit Pili Elkins APRN, NETTA [facility] [place] 10/08/21 Office Visit Angelito Alegria APRN, NETTA [facility] [place] 08/30/21 Office Visit Just[facility] Showing recent visits within past 365 [...] - Endocrinology [facility] #2 [place] [address] Annel Rod MD #[address] [address] 11/13/2024 2:00 PM CDT [facility] [address] [place] [address] Angelito Alegria APRN, AGENCY MANAGER #[address] [address] Discharge Disposition: Discharged to home or Selfcare documented as of this encounter Visit Diagnoses Not on filedocumented in this encounter Additional Health Concerns Infection Onset Date Last Indicated Resolved Time COVID - 19 08/01/2024 08/01/2024 08/01/2024 3:20 PM CDT Assessment Noted Time PHQ-9 Depression Total Score: 0 07/21/19 3:00 PM CDT documented as of this encounter Care Teams Junior Accountant Relationship Specialty Start Date End Date Justen Gale MD #[address] [address] PCP - General Family Medicine 10/17/17 David Roberts APRN, AGENCY MANAGER [address]2 [place] [address] Nurse Practitioner Advanced Practice Nurse 01/31/22 Annel Rod MD #[address] [address] Consulting Physician Endocrinology 07/01/22 documented as of this encounter
--- OUTSIDE RECORDS SUMMARY | 2024-10-03 00:22 | XMS_ITS | Clinical Summary ---
Author Organization [facility] Address [address] [place] [address] Care Team Providers Care Turning Machine Operator Helper Name Role Phone Justen Gale MD Primary Care Provider [phone] Source Comments [facility] Affiliates and Associated Physician Practices is amultiple site organization consisting of ambulatory clinics and hospital sitesin [place], [place], [place] and [place]. This disclosure is being madepursuant to the Care Everywhere program and may not contain all information available regarding this patient. Last updated 18.[facility] Morgan [place] Allergies Active Allergy Reactions Criticality Noted Date [...] Sensor (FreeStyle Eileen 2 Sensor Systm) [facility] APPLY 1 SENSOR AND WEAR FOR 14 [...] Team Description 08/14/2024 Results [place] [address] Josué Bernal PA-C 08/13/2024 Telephone ER at [facility] [address] [place] [address] Jordana Abdul MD ER UC Follow-up 08/09/2024 6:46 PM CDT - 08/09/2024 9:35 PM CDT Emergency ER at [address] [id number] Yasmin Matthew DO Shortness of breath; Strep [...] medical care, and heating? Somewhat hard 05/16/2023 [facility] Occupat ional Health - Occupational Stress [...] in a retirement (including now)? 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 Gender Identity Not on file Sexual Orientation [...] this topic Medical Devices Implanted Type Area Blood And Plasma Laboratory Assistant Device Identifier Shelf Expiration Date Model / Serial / Lot Lead Nrstm 60cm Penta 3mm Pdl 16 Chnl Implanted:Qt y: 1 on 09/16/2021 by Maxi Gregg MD at [facility] Right: Spine Thoracic [employer] 3228 / / Description:CAMILO Slnt Dura Duraseal Pg Trilysine Amine 5 Implanted:Qt y: 1 on 09/16/2021 by Maxi Gregg MD at [facility] Right: Spine Thoracic Inte[employer] David [id number] / / Description:CAMILO Proclaim Plus 5 Implanted:Qt y: 1 on 02/16/2023 by Maxi Gregg MD at [facility] Left: Back Cardenas Spine [id number] 11/07/2024 3670 / [id number] / Explanted Type Area Blood And Plasma Laboratory Assistant Device Identifier Shelf Expiration Date Model / Serial / Lot Gntr Nrstm [id number] Proclaim Elt Implanted:Qty: 1 on 09/16/2021 by Maxi Gregg MD at [facility] Explanted:Qty: 1 on 10/30/2021 [...] 08/09/2024 8:46 PM CDT [facility] Specific [place] UA 1.014 1.005 - 1.030 08/09/2024 8:46 [...] 5 # /hpf 08/09/2024 8:46 PM CDT [facility] Bacteria UA Trace(A) None Seen 08/09/2024 8:46 PM CDT [facility] Squamous Epithelial Cells None Seen 0 - 5 /hpf 08/09/2024 8:46 PM CDT [facility] Mucus UA 1+ /LPF 08/09/2024 8:46 PM CDT [facility] Urine URINE SPECIMEN OBTAINED BY CLEAN CATCH PROCEDURE / Unknown 08/09/2024 8:39 PM CDT 08/09/2024 8:39 PM CDT Narrative [facility] - 08/09/2024 8:46 PM CDT Yasmin Matthew DO LAB - URINALYSIS ORDERABLES Final Result Performing Organization Address City/State/[facility] Co de Phone Number [facility] [address] [place] [address] * (ABNORMAL) CULTURE URINE (08/09/2024 8:39 PM CDT) [facility] Culture Urine 50,000-100,000 CFU/mL Escherichia coli(A) TERRANCE 08/12/2024 4:04 AM CDT [facility] Culture Urine 10,000-50,000 CFU/mL urogenital evelio TERRANCE 08/12/2024 4:04 AM CDT [facility] Urine URINE SPECIMEN OBTAINED BY CLEAN CATCH PROCEDURE / Unknown 08/09/2024 8:39 PM CDT 08/09/2024 8:39 PM CDT Narrative [facility] - 08/12/2024 4:04 AM CDT [...] LAB - MICROBIOLOGY ORDERABLE S Final Result [facility] [address] [facility] [place], [place] [address], [facility] [phone] * SARS-COV-2 (COVID-19) FLU A/B RSV PCR RAPID (08/09/2024 7:40 PM CDT) [facility] COVID-19 PCR Not detected Not detected 08/10/19 8:24 PM CDT [facility] Influenza A PCR Not detected Not detected 08/09/2024 8:24 PM CDT [facility] Influenza B PCR Not detected Not detected 08/09/2024 8:24 PM CDT [facility] RSV PCR Not detected Not detected 08/09/2024 8:24 PM CDT [facility] Microbiology SPECIMEN FROM NASOPHARYNGEAL STRUCTURE / Unknown Collection / Unknown 08/09/2024 7:40 PM CDT 08/09/2024 7:40 PM CDT Narrative [facility] - 08/09/2024 8:24 PM CDT This [...] ORDERABLE S Final Result Performing Organization Address [facility] Co de Phone Number [facility] [address] [place] [phone] * (ABNORMAL) STREP A SCREEN DIRECT W RFLX STREP A CULTURE (08/09/2024 7:40 PM CDT) [facility] Strep A Rapid Positive(A ) Negative 08/09/2024 7:53 PM CDT [facility] Microbiology ENTIRE THROAT (SURFACE REGION OF NECK) / Unknown Collection / Unknown 08/09/2024 7:40 PM CDT 08/09/2024 7:40 PM CDT Yasmin Vipul LAB - MICROBIOLOGY ORDERABLE S Final Result Performing Organization Address [facility] de Phone Number [facility] [address] [place] [address] * EKG 12-LEAD (08/09/2024 7:06 PM CDT) Ventricular Rate 86 BPM [facility] Atrial Rate 86 BPM [facility] P-R Interval 122 ms [facility] QRS Duration ms 86 ms [facility] Q-T Interval ms 370 ms [facility] QTC Calculation (Bezet) 442 ms [facility] Calculated R [place] 8 degrees [facility] Calculated T [place] 51 degrees [facility] MUSE Interpretation EKG NORMAL SINUS RHYTHM WITH SINUS ARRHYTHMIA SEPTAL INFARCT , AGE UNDETERMINED ABNORMAL ECG WHEN COMPARED WITH ECG OF 09-AUG-2024 13:34, SINUS RHYTHM HAS REPLACED ECTOPIC ATRIAL RHYTHM SEPTAL INFARCT IS NOW PRESENT Confirmed by Gil Perrin MD ([id number]) on 08/10/2024 9:03:52 AM [facility] MUSE 08/09/2024 7:06 PM CDT 08/10/2024 9:03 AM CDT Josué Bernal PA-C ECG ORDERABLES Edited Re sult - Final Performing Organization Address City/[facility]/ZIP Co de Phone Number [facility] MUSE * TROPONIN-I HIGH SENSITIVE REFLEX 1HOUR (08/09/2024 3:29 PM CDT) [facility] Troponin I High Sensitive 5 <=14 ng/L 08/09/2024 4:50 PM CDT [facility] Delta Troponin I HS 08/09/2024 4:50 PM CDT [facility] Comment:Delta value intentio yissel not calculated. Baseline to 1 hour specimen collection interval exceeded. Blood BLOOD SPECIMEN / Unknown Venipuncture / Unknown 08/09/2024 3:29 PM CDT 08/09/2024 3:33 PM CDT Josué Bernal PA-C LAB - CHEMISTRY ORDERABLE S Final Result Performing Organization Address [facility] Co de Phone Number [facility] [address] [place] [address] * XR CHEST 2VW (08/09/2024 1:59 PM [...] BASELINE + 1HR (08/09/2024 1:40 PM CDT) [facility] Troponin I High Sensitive 6 <=14 ng/L 08/09/2024 2:14 PM CDT [facility] Blood BLOOD SPECIMEN / Unknown Venipuncture / Unknown 08/09/2024 1:40 PM CDT 08/09/2024 1:43 PM CDT Josué Bernal PA-C LAB - CHEMISTRY ORDERABLE S Final Result [facility] [address] [place] [address] * (ABNORMAL) CBC W AUTO DIFFERENTIAL (08/09/2024 1:40 PM CDT) [facility] WBC 15.6(H) 4.0 - 10.7 x10E9/L 08/09/2024 1:47 PM CDT [facility] RBC Count 4.44 3.90 - 5.20 x10E12/L 08/09/2024 1:47 PM CDT [facility] Hemoglobin 13.0 11.9 - 15.8 g/dL 08/09/2024 1:47 PM CDT [facility] Hematocrit 40.4 34.8 - 46.1 % 08/09/2024 1:47 PM CDT [facility] MCV 91.0 80.0 - 98.0 fL 08/09/2024 1:47 PM CDT [facility] MCH 29.3 26.7 - 33.6 pg 08/09/2024 1:47 PM CDT [facility] MCHC 32.2 31.7 - 36.3 g/dL 08/09/2024 1:47 PM CDT [facility] RDW-CV 13.0 11.3 - 14.8 % 08/09/2024 1:47 PM CDT [facility] Platelet Count 249 150 - 420 x10E9/L 08/09/2024 1:47 PM CDT [facility] MPV 9.6 7.8 - 11.4 fL 08/09/2024 1:47 PM CDT [facility] Neutrophil % 72.7 41.0 - 74.0 % 08/09/2024 1:47 PM CDT [facility] Lymphocyte % 18.0 17.0 - 47.0 % 08/09/2024 1:47 PM CDT [facility] Monocyte % 7.5 3.0 - 11.0 % 08/09/2024 1:47 PM CDT [facility] Eosinophil % 1.2 0.0 - 7.0 % 08/09/2024 1:47 PM CDT [facility] Basophil % 0.2 0.0 - 1.6 % 08/09/2024 1:47 PM CDT [facility] Immature Granulocytes % 0.4 0.0 - 1.0 % 08/09/2024 1:47 PM CDT [facility] Neutrophil Absolute 11.35(H) 1.60 - 7.50 x10E9/L 08/09/2024 1:47 PM CDT [facility] Lymphocyte Absolute 2.82 1.00 - 4.40 x10E9/L 08/09/2024 1:47 PM CDT [facility] Monocyte Absolute 1.18(H) 0.15 - 1.00 x10E9/L 08/09/2024 1:47 PM CDT [facility] Eosinophil Absolute 0.19 0.00 - 0.60 x10E9/L 08/09/2024 1:47 PM CDT [facility] Basophil Absolute 0.03 0.00 - 0.13 x10E9/L 08/09/2024 1:47 PM CDT [facility] Blood BLOOD SPECIMEN / Unknown Venipuncture / Unknown 08/09/2024 1:40 PM CDT 08/09/2024 1:43 PM CDT Josué MCKEON-C LAB - HEMATOLOGY ORDERABL ES Final Result Performing Organization Address [facility] Co de Phone Number [facility] [address] [place] [phone] * B-TYPE NATRIURETIC PEPTIDE (08/09/2024 1:40 PM CDT) BNP 29 <=100 pg/mL 08/09/2024 2:11 PM CDT [facility] Blood BLOOD SPECIMEN / Unknown Venipuncture / Unknown 08/09/2024 1:40 PM CDT 08/09/2024 1:43 PM CDT Narrative [facility] - 08/09/2024 2:11 PM CDT A [...] ORDERABLE S Final Result Performing Organization Address [facility] Co de Phone Number [facility] [address] [place] [phone] * (ABNORMAL) COMPREHENSIVE METABOLIC PANEL (08/09/2024 1:40 PM CDT) [facility] Glucose 212(H) 70 - 99 mg/dL 08/09/2024 2:09 PM CDT [facility] Sodium 136 136 - 145 mmol/L 08/09/2024 2:09 PM CDT [facility] Potassium 3.9 3.5 - 5.1 mmol/L 08/09/2024 2:09 PM CDT [facility] Chloride 103 98 - 107 mmol/L 08/09/2024 2:09 PM CDT [facility] CO2 24 22 - 29 mmol/L 08/09/2024 2:09 PM T [facility] Calcium 9.4 8.4 - 10.4 mg/dL 08/09/2024 2:09 PM [facility] Anion Gap 9 6 - 16 mmol/L 08/09/2024 2:09 PM T [facility] BUN 19 7 - 26 mg/dL 08/09/2024 2:09 PM T [facility] Creatinine 0.82 0.57 - 1.11 mg/dL 08/09/2024 2:09 PM [facility] Alkaline Phosphatase 68 40 - 150 U/L 08/09/2024 2:09 PM CDT [facility] ALT 22 6 - 57 U/L 08/09/2024 2:09 PM T [facility] AST 23 10 - 48 U/L 08/09/2024 2:09 PM [facility] Protein Total 8.0 6.4 - 8.3 gm/dL 08/09/2024 2:09 PM T [facility] Albumin 3.3(L) 3.4 - 5.0 gm/dL 08/09/2024 2:09 PM [facility] Bilirubin Total 0.9 0.2 - 1.2 mg/dL 08/09/2024 2:09 PM [facility] eGFR by CKD-EPI 78(L) >=90 mL/min/1.7 3 m2 08/09/2024 2:09 PM [facility] Blood BLOOD SPECIMEN / Unknown Venipuncture / Unknown 08/09/2024 1:40 PM CDT 08/09/2024 1:43 PM CDT Josué MCKEON-Ana Laura LAB - CHEMISTRY ORDERABLE S Final Result Performing Organization Address [facility] de Phone Number [facility] [address] [place], [place] [phone] * (ABNORMAL) MAGNESIUM BLOOD (08/09/2024 1:40 PM CDT) Pathologist [facility] Magnesium 1.5(L) 1.6 - 2.6 mg/dL 08/09/2024 2:09 PM CDT [facility] Blood BLOOD SPECIMEN / Unknown Venipuncture / Unknown 08/09/2024 1:40 PM CDT 08/09/2024 1:43 PM CDT Josué MCKEON-C LAB - CHEMISTRY ORDERABLE S Final Result Performing Organization Address [facility] de Phone Number [facility] [address] [place] [address] * CK BLOOD (08/09/2024 1:40 PM CDT) [facility] CK 107 29 - 168 U/L 08/09/2024 7:44 PM CDT [facility] Blood BLOOD SPECIMEN / Unknown Venipuncture / Unknown 08/09/2024 1:40 PM CDT 08/09/2024 1:43 PM CDT Yasmin Matthew DO LAB - CHEMISTRY ORDERABLES F inal Result Performing Organization Address [facility] Co de Phone Number [facility] [address] [place] [phone] * HEPATITIS C AB SCREEN RFLX NAAT QUANT (02/21/2023 6:30 PM CDT) [facility] Hepatitis C Antibody Non-react hugh Non-reac tive 02/21/2023 7:32 PM CDT [facility] Comment:Hepatitis C Antibody screen [...] ORDERABLES Fi nal Result Performing Organization Address City/[facility]/ZIP Co de Phone Number [facility] [address] [place] [address], [place] [phone] * (ABNORMAL) HEMOGLOBIN A1C (12/25/2022 3:56 AM CDT) Hemoglobin A1c 8.6(H) <=5.6 % 12/25/2022 2:47 PM CDT [facility] Estimated Average Glucose 200 mg/dL 12/25/2022 2:47 PM CDT [facility] Comment: HbA1c Interpretation: Normal : < 5.7% Pre-diabetes: 5.7-6.4% Diabetes: Equal to or greater than 6.5% Test results diagnostic of diabetes should be repeated for confirmation. Treatment target values recommended by ADA and other clinical organizations should be used to evaluate metabolic control in patients. Reference: [place] [employer], Standards of Care in [...] LAB - CHEMISTRY ORDERA BLES Final Result [facility] [address] [place] [address], [place] [phone] from Last 3 Months or Most Recently [...] 3:37 AM 03/23/2023 7:14 PM Care Teams Turning Machine Operator Helper Relationship Specialty Start Date End Date Justen Gale MD PCP - General 07/05/21
--- OUTSIDE RECORDS SUMMARY | 2024-10-03 00:22 | XMS_ITS | Encounter Summary ---
Author Organization [facility] Address [address] [place] [address] Phone Care Team Providers Care Marbleizer Name Role Phone Liu Jerez MD Unavailable Albert Corbin MD Unavailable Justen Gale MD Primary Care Provider Khris Arthur MD Unavailable [phone] Ko Melendez MD Unavailable John Paul Moyer MD Unavailable Annel Rod MD Unavailable Anali MARSHALL MD, Carlos M. Unavailable [phone] Encounter Details Date Type Department Care Team [...] on file Legal Sex Female 12:24 AM PRODUCTION SANITIZER Gender Identity Not on file Sexual Orientation [...] COVID: Recovered 02/10/2022 02/10/2022 06/10/2022 3:05 AM PRODUCTION SANITIZER Exposure, COVID-19 Comment:Added automatically based on COVID19 lab answers indicating exposure risk 02/11/2022 02/11/2022 02/15/2022 9:06 AM C DT COVID: Suspected 05/14/2022 05/14/2022 05/14/2022 10:41 AM PRODUCTION SANITIZER COVID: Suspected 06/07/2022 06/07/2022 06/07/2022 12:28 PM PRODUCTION SANITIZER COVID: Suspected 06/21/2022 06/21/2022 06/21/2022 2:12 AM PRODUCTION SANITIZER COVID: Suspected 10/05/2022 10/05/2022 10/05/2022 7:40 PM CDT COVID: Suspected 01/04/2024 01/04/2024 01/04/2024 10:30 PM CDT COVID: Suspected 02/14/2024 02/14/2024 02/15/2024 12:36 AM CDT COVID: Suspected 07/01/2024 07/01/2024 07/01/2024 2:53 PM CDT COVID: Suspected 07/01/2024 07/01/2024 07/02/2024 3:05 AM CDT documented as of this encounter Care Teams Marbleizer Relationship Specialty Start Date End Date Justen Gale MD [address] [facility] [address] [place] [address] PCP - General 10/09/17 Liu Jerez MD Consulting Physician Gastroenterology 07/28/[address] [place] [address] [facility] [address] [place] [address] Consulting Physician Pulmonary Disease 08/03/17 [place] [address] [place] [address] [address] [place] [address] Medical Oncologist/Drilling Foreman Medical Oncology 10/23/17 [place] [address] [address] Surgeon Orthopedic Surgery 10/23/17 [place] [address] [facility] [address] [place] [address] Consulting Physician Pain Management 10/23/17 [place] [address] [address] Referring Physician General Surgery 01/26/18 [place] [address] [facility] [address] [place] [address] Consulting Physician Neurology 01/26/18 documented as of this encounter
--- OUTSIDE RECORDS SUMMARY | 2024-10-03 00:22 | XMS_ITS | Encounter Summary ---
Author Organization [facility] Address [address] [place] [address] Phone Care Team Providers Care Incident Response Analyst Name Role Phone Justen Gale MD Primary Care Provider David Roberts APRN, ART GLASS DESIGNER Unavailable [phone] Annel Rod MD Unavailable Reason for Visit * Reason Comments Medication Refill Encounter Details Date Type Department Care Team (Late st Contact Info) Description 04/13/2023 Refill [facility] - [place] #2 [place] [address] Annel Rod MD #[address] [address] Medication Refill Social History Tobacco [...] Jennifer Wang, RN - 04/14/2023 10:00 AM RAIL LOADER Requested Prescriptions Pending Prescriptions Disp Refills ??? Continuous Blood Gluc Sensor (FreeStyle Eileen 2 Sensor) Misc [Pharmacy Med Name: FREESTYLE EILEEN 2 SENSOR] 6 Each 1 Sig: APPLY 1 SENSOR AND WEAR FOR 14 DAYS TO CHECK BLOOD SUGAR Next appt: 05/30/2023 LOADER documented in this encounter Plan of Treatment Upcoming Encounters Date Type Department Care Team (Late st Contact Info) Description 10/22/2024 11:15 AM CDT Office Visit [facility] - [place] #2 [place] [address] Annel Rod MD #2 [facility] [address] [place] [address] 11/13/2024 2:00 PM CDT [facility] 1 [place] [address] Angelito Alegria, ZAMZAM, ART GLASS DESIGNER #2 [facility] [address] [place] [address] Discharge Disposition: Discharged to home or Selfcare documented as of this encounter Visit Diagnoses Not on filedocumented in this encounter Additional Health Concerns Infection Onset Date Last Indicated Resolved Time COVID - 19 08/01/2024 08/01/2024 08/01/2024 3:20 PM CDT Assessment Noted Time PHQ-9 Depression Total Score: 8 01/18/20 2:24 PM CDT documented as of this encounter Care Teams Incident Response Analyst Relationship Specialty Start Date End Date Jsuten Gale MD #2 [facility] [address] [place] [address] PCP - General Family Medicine 10/17/17 David Roberts APRN, ART GLASS DESIGNER #2 [place] [address] Nurse Practitioner Advanced Practice Nurse 01/31/22 Annel Rod MD #[address] [address] Consulting Physician Endocrinology 07/01/22 documented as of this encounter
--- OUTSIDE RECORDS SUMMARY | 2024-10-03 00:22 | XMS_ITS | Encounter Summary ---
Author Organization [facility] Address [address] [place] [address] Phone Care Team Providers Care Automotive Generator Repairer Name Role Phone Justen Gale MD Primary Care Provider [phone] David Roberts APRN, RN [facility] Unavailable Annel Rod MD Unavailable Reason for Visit * Reason Comments Medication Refill Encounter Details Date Type Department Care Team (Late st Contact Info) Description 07/06/2023 Refill [facility] #2 [place] [phone] Justen Gale MD #[address] [address] Medication Refill Social History Tobacco Use Types [...] Office Visit Justen Gale MD [facility] 01/17/23 Office Visit Catrina Quiñonez MD [facility] Showing recent visits within past 270 [...] Description 10/22/2024 11:15 AM CDT Office Visit [facility] - Endocrinology - [place] [address] [place] [address] Annel Rod MD #[address] [facility] [address] [place] [address] 11/13/2024 2:00 PM CDT Appointment [facility] Cardiology Services 1 [place] [address] Angelito Alegria, SPRINKLER TENDER, RN [facility] #2 [facility] [address] [place] [address] Discharge Disposition: Discharged to home or Selfcare documented as of this encounter Visit Diagnoses Not on filedocumented in this encounter Additional Health Concerns Infection Onset Date Last Indicated Resolved Time COVID - 19 08/01/2024 08/01/2024 08/01/2024 3:20 PM CDT Assessment Noted Time PHQ-9 Depression Total Score: 8 01/18/20 23 2:24 PM CDT documented as of this encounter Care Teams Automotive Generator Repairer Relationship Specialty Start Date End Date Justen Gale MD #[address] [address] PCP - General Family Medicine 10/17/17 David Roberts APRN, RN [facility] #2 [place] [address] Nurse Practitioner Advanced Practice Nurse 01/31/22 Annel Rod MD #[address] [address] Consulting Physician Endocrinology 07/01/22 documented as of this encounter
--- OUTSIDE RECORDS SUMMARY | 2024-10-03 00:22 | XMS_ITS | Encounter Summary ---
Author Organization [facility] Address [address] [place] [address] Phone Care Team Providers Care Cardiology Tech Name Role Phone Justen Gale MD Primary Care Provider David Roberts APRN, MULTISKILL OPERATOR Unavailable Annel Rod MD Unavailable Reason for Visit * Reason Comments Medication Refill Encounter Details Date Type Department Care Team (Late st Contact Info) Description 03/05/2023 Refill [facility] Medicine [facility] #2 [place] [address] Pili Elkins APRN, MULTISKILL OPERATOR #[address] [address] Medication Refill Social History Tobacco [...] discontinued on 10/19/2022 by Justen Gale MD TANK WORKER documented in this encounter Plan of Treatment Upcoming Encounters Date Type Department Care Team (Late st Contact Info) Description 10/22/2024 11:15 AM CDT Office Visit [facility] - [place] #2 [place] [address] Annel Rod MD #2 [facility] [address] [place] [address] 11/13/2024 2:00 PM CDT [facility] 1 [place] [address] Angelito Alegria APRN, MULTISKILL OPERATOR #2 [facility] [address] [place] [address] Discharge Disposition: Discharged to home or Selfcare documented as of this encounter Visit Diagnoses Diagnosis Essential hypertension Unspecified essential hypertension documented in this encounter Additional Health Concerns Infection Onset Date Last Indicated Resolved Time COVID - 19 08/01/2024 08/01/2024 08/01/2024 3:20 PM CDT Assessment Noted Time PHQ-9 Depression Total Score: 8 01/18/20 2:24 PM CDT documented as of this encounter Care Teams Cardiology Tech Relationship Specialty Start Date End Date Justen Gale MD #2 [facility] [address] [place] [address] PCP - General Family Medicine 10/17/17 David Roberts APRN, NETTA #2 [place] [address] Nurse Practitioner Advanced Practice Nurse 01/31/22 Annel Rod MD #2 [facility] [address] [place] [address] Consulting Physician Endocrinology 07/01/22 documented as of this encounter
--- OUTSIDE RECORDS SUMMARY | 2024-10-03 00:22 | XMS_ITS | Encounter Summary ---
Author Organization [facility] Address [address] [place] [address] Phone Care Team Providers Care Lobster Catcher Name Role Phone Justen Gale MD Primary Care Provider David Roberts APRN, WELDING EQUIPMENT SALES REPRESENTATIVE Unavailable Annel Rod MD Unavailable Reason for Visit * Reason Comments Medication Refill Encounter Details Date Type Department Care Team (Late st Contact Info) Description 02/07/2023 Refill [facility] - Family Medicine [facility] #2 [place] [address] Pili Elkins APRN, WELDING EQUIPMENT SALES REPRESENTATIVE #[address] [address] Medication Refill Social History Tobacco [...] Office Visit [facility] Endocrinology [facility] #2 [place] [address] Annel Rod MD #2 [facility] [address] [place] [address] 11/13/2024 2:00 PM CDT Appointment [facility] Cardiology Services 1 [place] [address] Angelito Alegria APRN, WELDING EQUIPMENT SALES REPRESENTATIVE #2 [facility] [address] [place] [address] Discharge Disposition: Discharged to home or Selfcare documented as of this encounter Visit Diagnoses Diagnosis Essential hypertension Unspecified essential hypertension documented in this encounter Additional Health Concerns Infection Onset Date Last Indicated Resolved Time COVID - 19 08/01/2024 08/01/2024 08/01/2024 3:20 PM CDT Assessment Noted Time PHQ-9 Depression Total Score: 8 01/18/20 2:24 PM CDT documented as of this encounter Care Teams Lobster Catcher Relationship Specialty Start Date End Date Justen Gale MD #2 [facility] [address] [place] [address] PCP - General Family Medicine 10/17/17 David Roberts APRN, WELDING EQUIPMENT SALES REPRESENTATIVE #2 [place] [address] Nurse Practitioner Advanced Practice Nurse 01/31/22 Annel Rod MD #2 [facility] [address] [place] [address] Consulting Physician Endocrinology 07/01/22 documented as of this encounter
--- OUTSIDE RECORDS SUMMARY | 2024-10-03 00:23 | XMS_ITS | Encounter Summary ---
Author Organization [facility] Address [address] [address] Phone Care Team Providers Care Returner Name Role Phone Justen Gale MD Primary Care Provider [phone] David Roberts APRN, INDEX EDITOR Unavailable [phone] Annel Rod MD Unavailable Reason for Visit * Reason Onset Date Comments Sore Throat 09/02/2024 Encounter Details Date Type Department Care Team (Late st Contact Info) Description 09/02/2024 Nurse Triage [facility] [address] [place] [address] Justen Gale MD #[address] [address] Sore Throat Social History Tobacco Use Types [...] [facility] - [...] any time in the past 12 [facility], were you homeless or living in a retirement (including now)? No 08/06/2024 Education Answer Date [...] Pharmacy, medications, and allergies reviewed. Discussed utilizing [employer] to: discuss if they would prefer a [employer] message or phone call response - See [...] Ulcers - Caller Reports Outcome: Transfer to [employer] queue Reason: Caller denied all higher acuity questions The caller accepted this outcome. Caller Denied: * Struggling for each breath (severe trouble breathing) * Can't swallow saliva (drooling) documented in this encounter Plan of Treatment Upcoming Encounters Date Type Department Care Team (Late st Contact Info) Description 10/22/2024 11:15 AM CDT Office Visit [facility] - [place] #2 [place] [address] Annel Rod MD #[address] [address] 11/13/2024 2:00 PM CDT Appointment [facility] Cardiology Services 1 [place] [address] Angelito Alegria, NETWORK SUPPORT TECHNICIAN, INDEX EDITOR #2 [facility] [address] [place] [address] Discharge Disposition: Discharged to home or Selfcare documented as of this encounter Visit Diagnoses Not on filedocumented in this encounter Additional Health Concerns Assessment Noted Time PHQ-9 Depression Total Score: 0 08/02/19 25 1:09 PM CDT documented as of this encounter Care Teams Returner Relationship Specialty Start Date End Date Justen Gale MD #[address] [address] PCP - General Family Medicine 10/17/17 David Roberts APRN, INDEX EDITOR #2 [place] [address] Nurse Practitioner Advanced Practice Nurse 01/31/22 Annel Rod MD #[address] [address] Consulting Physician Endocrinology 07/01/22 documented as of this encounter
--- OUTSIDE RECORDS SUMMARY | 2024-10-03 00:23 | XMS_ITS | Clinical Summary ---
Author Organization [facility] Address [address] [place] [address] Phone Care Team Providers Care Technical Support Coordinator Name Role Phone Justen Gale MD Primary Care Provider [phone] David Roberts APRN, ACID WASH OPERATOR Unavailable Annel Rod MD Unavailable Allergies Active [...] long-term current use of insulin ([facility]) Diagnosis: Diabetes Type 2 Blood testing [...] Tablet by mouth. 12/28/19 24 Active Multiple Vitamins-Throckmorton als (WOMENS MULTI PO) Take by mouth. [...] taking until cleared by PCP office or molding engineer. Will need to taper off slowly. Indications: Polymyalgia Rheumatica 30 Tablet 10/01/19 25 Active predniSONE (DELTASONE) 10 MG TabletIndicati ons:Polymyalgi a Rheumatica Take 1 Tablet by mouth daily. Do not stop taking until cleared by PCP office or molding engineer. Will need to taper off slowly. Indications: Polymyalgia Rheumatica 30 Tablet 08/10/19 25 2024 Discontin ued(Reord er) predniSONE (DELTASONE) 10 MG TabletIndicati ons:Polymyalgi a Rheumatica Take 1 Tablet by mouth daily. Do not stop taking until cleared by PCP office or molding engineer. Will need to taper off slowly. Indications: [...] Overview: Added automatically from request for surgery [id number] Lymphedema of left upper extremity 08/09/2016 Pulmonary embolism 08/09/2016 Overview (11/09/2017): Last Assessment & Plan: On Rivaroxaban Arthralgia of ankle 01/26/2015 Cellulitis of breast 11/11/2014 Encounters Date Type Department Care Team Description 09/30/2024 MyChart RX Renewal [facility] [place] [phone] Dulce Wolff, LEARNING DESIGN SPECIALIST, ACID WASH OPERATOR Medication Renewal Reviewed 09/29/2024 [facility] [place] [facility] [address] [place] [phone] Justen Gale MD Urinary Tract Infection 09/23/2024 [facility]riage [facility] [address] [place] [phone] Justen Gale MD Breathing Problem; Pain 09/23/2024 Telephone [facility] [address] [place] [phone] Justen Gale MD Pain 09/11/2024 Telephone [facility] [address] [place] [phone] Justen Gale MD Follow-up 09/06/2024 1:15 PM CDT Office Visit [facility] [address] [place] [address] Dulce Wolff, LEARNING DESIGN SPECIALIST, ACID WASH OPERATOR Enlarged tonsils (Primary Dx); Polymyalgia rheumatica (HCC); Oral candidiasis; Edema, unspecified type Discharge Disposition: Discharged to home or Selfcare 09/06/2024 Travel 09/03/2024 Telephone [facility] [address] [place] [address] Justen Gale MD Follow-up 09/02/2024 Nurse Triage [facility] [address] [place] [phone] Justen Gale MD Sore Throat 08/20/2024 1:15 PM CDT Office Visit [facility] [address] [place] [address] Justen Gale MD Acute maxillary sinusitis, recurrence not specified (Primary Dx) Discharge Disposition: Discharged to home or Selfcare 08/20/2024 Travel 08/19/2024 Telephone [facility] [address] [place] [address] Justen Gale MD Advice Only; Follow-up 08/14/2024 Telephone [facility] [place] [phone] Annel Rod MD High Blood Sugar 08/13/2024 Nurse Triage [facility] [address] [place] [phone] Justen Gale MD High Blood Sugar 08/07/2024 9:20 AM CDT Lab [facility] [address] [phone] Lab [facility]/Ancillary Body aches; Diffuse arthralgia Discharge Disposition: Discharged to home or Selfcare 08/07/2024 8:30 AM CDT Office Visit [facility] [address] [place] [phone] Angelito Alegria APRN, CNP Diffuse arthralgia (Primary Dx); Dyspnea on exertion; Type 2 diabetes mellitus with diabetic polyneuropathy, with long-term current use of insulin ([facility]) Discharge Disposition: Discharged to home or Selfcare 08/07/2024 Results Follow-Up [facility] [address] [place] [phone] Angelito Alegria APRN, CNP CREATINE KINASE (CK) TOTAL, ERYTHROCYTE SEDIMENTATION RATE (ESR), C-REACTIVE PROTEIN (CRP) QUANT 08/07/2024 Nurse Triage [facility] [address] [phone] Justen Gale MD Breathing Problem; Muscle Pain 08/06/2024 Travel 08/05/2024 MyChart RX Renewal [facility] Endocrinology [facility] [address] [place] [phone] Annel Rod MD Medication Renewal Reviewed 08/05/2024 Nurse Triage [facility] [address] [place] [phone] Justen Gale MD Muscle Pain; Follow-up 08/03/2024 3:36 AM CDT - 08/03/2024 7:05 AM CDT [facility] [address] [place] [address] Sergio Rivera MD Myalgia Discharge Disposition: Discharged to home or Selfcare 08/02/2024 Travel 08/02/2024 Nurse Triage [facility] [address] [place] [phone] Justen Gale MD Hemoptysis 08/02/2024 Telephone [facility] [address] [place] [phone] Justen Gale MD Results 08/02/2024 Telephone [facility] [address] [place] [address] Angelito Alegria APRN, ACID WASH OPERATOR Results 08/02/2024 MyChart RX Renewal [facility] Endocrinology [facility] [address] [place] [phone] Annel Rod MD Medication Renewal Reviewed 08/01/2024 2:13 PM CDT - 08/01/2024 4:16 PM CDT Emergency [facility] Emergency [address] [place] [phone] Jack Leiva MD Dyspnea on exertion Discharge Disposition: Discharged to home or Selfcare 08/01/2024 1:15 PM CDT Office Visit [facility] [address] [place] [phone] Angelito Alegria APRN, ACID WASH OPERATOR Body aches (Primary Dx) Discharge Disposition: Discharged to home or Selfcare 08/01/2024 Travel 08/01/2024 Nurse Triage [facility] [address] [place] [phone] Justen Gale MD Pain 07/22/2024 Telephone [facility] [address] [place] [phone] Justen Gale MD Appointment 07/11/2024 Nurse Triage [facility] [place] [facility] [address] [place] [phone] Justen Gale MD Toe Problem from Last [...] drink = 0.6 oz pur e alcohol) [facility] Utilities Answer Date Recorded In the past 12 months has [employer], [employer], oil, or water [employer] threatened to shut off services in your home? Yes 08/06/2024 Social Connection and Isolation Panel Answer Date Recorded In a typical week, how many times do you talk on the phone with family, friends, or neighbors? More than three times a week 08/06/2024 How often do you get togethe r with friends or relatives? Patient declined 08/06/2024 How often do you attend [facility] or yazidi services? More than 4 times [...] Total Score - Questions 1-9 0 07/23 [facility] ional [facility] - Occupational Stress Questionnaire Answer [...] living in a penitentiary (including now)? No 08/06/2024 Education Answer Date [...] Description 10/22/2024 11:15 AM CDT Office Visit [facility] - [place] [address] [place] [phone] Annel Rod MD [address] [phone] 11/13/2024 2:00 PM CDT [facility] [address] [place] [address] Angelito Alegria, LEARNING DESIGN SPECIALIST, ACID WASH OPERATOR [address] [place] [address] [address] [address] Discharge Disposition: Discharged to home or Selfcare [...] screening for human papillomavirus (HPV) PATHOLOGY CYTOLOGY COMMUNICATION CENTER OPERATOR Routine 07/05/2022 2:24 PM CDT Encounter for [...] DIAGNOSTIC ORDERABLES Final Result Performing Organization Address [facility] de Phone Number SCAN * PAIN CONSULT (09/19/2024 12:00 AM CDT) Only the most recent of2 resultswithin the time period is included. 09/19/2024 Justen Gale MD GENERIC SCAN ORDERS CONSULT F inal Result Performing Organization Address [facility] de Phone Number SCAN * CT - HEAD/NECK (08/13/2024 12:00 AM CDT) 08/13/2024 us Provider Scan IMG CT ORDERABLES Final Result Performing Organization Address [facility] de Phone Number SCAN * (ABNORMAL) ERYTHROCYTE SEDIMENTATION RATE (ESR) (08/07/2024 8:59 AM CDT) Only the most recent of2 resultswithin the time period is included. ESR (SED RATE, ERYTHROCYTE SEDIMENTATION RATE) 52(H) <30 mm/h 08/07/2024 12:34 PM CDT [facility] Comment: Patients presenting with increased level of fibrinogen, gamma globulins, or abnormally shaped RBCs could affect the results for the erythrocyte sedimentation rate (ESR). Results should be clinically correlated. Blood Venipuncture / Unknown 08/07/2024 8:59 AM CDT 08/07/2024 8:59 AM CDT Angelito Alegria APRN, CNP HEMATOLOGY ORDER CHAPARRO Final Result Performing Organization Address City/[facility] Co de Phone Number [facility] [address] [place] [address] * CREATINE KINASE (CK) TOTAL (08/07/2024 8:59 AM CDT) Only the most recent of2 resultswithin the time period is included. CK (CPK) 151 29 - 168 U/L 08/07/2024 1:08 PM CDT [facility] Blood Venipuncture / Unknown 08/07/2024 8:59 AM CDT 08/07/2024 8:59 AM CDT Angelito Alegria APRN, CNP HEMATOLOGY ORDER CHAPARRO Final Result Performing Organization Address [facility] Co de Phone Number [facility] [address] [place] [address] * (ABNORMAL) C-REACTIVE PROTEIN (CRP) QUANT (08/07/2024 8:59 AM CDT) Only the most recent of2 resultswithin the time period is included. C-REACTIVE PROTEIN 1.21(H) <0.50 mg/dL 08/07/2024 12:54 PM CDT [facility] Blood Venipuncture / Unknown 08/07/2024 8:59 AM CDT 08/07/2024 8:59 AM CDT Angelito Alegria APRN, CNP CHEMISTRY ORDERA BLES Final Result Performing Organization Address City/[facility]/ZIP Co de Phone Number [facility] [address] [place] [address] * (ABNORMAL) POCT GLUCOSE (08/07/2024 8:31 AM CDT) GLUCOSE 186(A) 70 - 99 mg/dL 08/07/2024 8:31 AM CDT us Angelito Alegria APRN, CNP POINT OF CARE TE STING (MANUAL) Final Result * CTA GENERIC (08/07/2024 12:00 AM CDT) 08/07/2024 us Provider Scan IMG CT ORDERABLES Final Result Performing Organization Address [facility] Co de Phone Number SCAN * XR [...] Sen Sy M.D. JANIYA: JANIYA Report ID: [id number] Reading Location: [id number] Procedure Note Dillon Sy MD - 08/03/2024 [...] Sen Sy M.D. JANIYA: JANIYA Report ID: [id number] Reading Location: [id number] IMPRESSION: Negative right hip. Sergio Rivera MD [...] Patrick Zhou M.D. KH: KATH Report ID: [id number] Reading Location: [id number] Procedure Note Patrick Zhou MD - 08/03/2024 [...] Patrick Zhou M.D. KH: KATH Report ID: [id number] Reading Location: [place] [address] IMPRESSION: Mild bilateral infiltrates are suspected superimposed on chronic lung changes. Sergio Rivera MD IM DIAGNOSTIC ORDERABLES Final Result * CBC with Auto Differential (08/02/2024 11:21 PM CDT) Only the most recent of2 resultswithin the time period is included. WBC 9.26 4.00 - 12.00 10(3)/mcL 08/03/2024 12:08 AM CDT [facility] RBC 4.62 3.80 - 5.30 10(6)/mcL 08/03/2024 12:08 AM CDT [facility] HEMOGLOBIN (HGB) 13.5 12.0 - 15.8 g/dL 08/03/2024 12:08 AM CDT [facility] HEMATOCRIT (HCT) 42.9 36.0 - 47.0 % 08/03/2024 12:08 AM CDT [facility] MCV 92.9 82.0 - 96.0 fL 08/03/2024 12:08 AM CDT [facility] MCH 29.2 26.0 - 34.0 pg 08/03/2024 12:08 AM CDT [facility] MCHC 31.5 31.0 - 36.0 g/dL 08/03/2024 12:08 AM CDT [facility] PLATELET COUNT 272 140 - 440 10(3)/mcL 08/03/2024 12:08 AM CDT [facility] RDW 12.8 11.8 - 15.5 % 08/03/2024 12:08 AM CDT [facility] MPV 10.2 9.7 - 12.4 fL 08/03/2024 12:08 AM CDT [facility] NEUTROPHILS 62.5 47.0 - 73.0 % 08/03/2024 12:08 AM CDT [facility] LYMPHOCYTES 27.1 18.0 - 42.0 % 08/03/2024 12:08 AM CDT [facility] MONOCYTES 7.1 4.0 - 12.0 % 08/03/2024 12:08 AM CDT [facility] EOSINOPHILS 3.0 0.0 - 5.0 % 08/03/2024 12:08 AM CDT [facility] BASOPHILS 0.3 0.0 - 1.0 % 08/03/2024 12:08 AM CDT [facility] ABSOLUTE NEUTROPHILS 5.78 1.60 - 7.70 10(3)/mcL 08/03/2024 12:08 AM CDT [facility] ABSOLUTE LYMPHOCYTES 2.51 1.30 - 3.20 10(3)/mcL 08/03/2024 12:08 AM CDT [facility] ABSOLUTE MONOCYTES 0.66 0.20 - 1.00 10(3)/mcL 08/03/2024 12:08 AM CDT [facility] ABSOLUTE EOSINOPHIL 0.28 0.00 - 0.40 10(3)/[facility] 08/03/2024 12:08 AM CDT [facility] ABSOLUTE BASOPHILS 0.03 0.00 - 0.10 10(3)/[facility] 08/03/2024 12:08 AM CDT [facility] NRBC PER 100 WBC 0 08/04/19 12:08 AM CDT [facility] Blood Venipuncture / Unknown 08/02/2024 11:21 PM CDT 08/03/2024 12:05 AM CDT Sergio Rivera MD HEMATOLOGY ORDERABLES Final Resu lt [facility] [address] [place] [address] * (ABNORMAL) CMP (Comprehensive Metabolic Panel) (08/02/2024 11:21 PM CDT) Only the most recent of2 resultswithin the time period is included. SODIUM 138 136 - 145 mmol/L 08/03/2024 12:29 AM CDT [facility] POTASSIUM 4.4 3.5 - 5.1 mmol/L 08/03/2024 12:29 AM CDT [facility] CHLORIDE 104 98 - 107 mmol/L 08/03/2024 12:29 AM CDT [facility] CO2, VENOUS 26 22 - 30 mmol/L 08/03/2024 12:29 AM CDT [facility] ANION GAP 12.4 <18.0 mmol/L 08/03/2024 12:29 AM CDT [facility] GLUCOSE 353(H) 70 - 99 mg/dL 08/03/2024 12:29 AM CDT [facility] BUN 18 10 - 20 mg/dL 08/03/2024 12:29 AM CDT [facility] CREATININE, BLOOD 0.80 0.60 - 1.00 mg/dL 08/03/2024 12:29 AM CDT [facility] BUN/CREATININE RATIO 23(H) 12 - 20 ratio 08/03/2024 12:29 AM CDT [facility] TOTAL PROTEIN 8.4(H) 6.0 - 8.0 g/dL 08/03/2024 12:29 AM CDT [facility] ALBUMIN 3.8 3.5 - 5.0 g/dL 08/03/2024 12:29 AM CDT [facility] A/G RATIO 0.8(L) 1.0 - 2.2 08/03/2024 12:29 AM CDT [facility] CALCIUM 10.0 8.7 - 10.5 mg/dL 08/03/2024 12:29 AM CDT [facility] T BILI 0.4 0.2 - 1.2 mg/dL 08/03/2024 12:29 AM CDT [facility] SGOT (AST) 23 <43 U/L 08/03/2024 12:29 AM CDT [facility] SGPT (ALT) 22 <56 U/L 08/03/2024 12:29 AM CDT [facility] ALKALINE PHOSPHATASE 67 40 - 150 U/L 08/03/2024 12:29 AM CDT [facility] GFR, ESTIMATED >60 >=60 08/03/2024 12:29 AM CDT [facility] Comment: Creatinine Clearance is the preferred criteria for selecting drug dose adjustments in renally impaired patients. The GFR is provided as additional pertinent clinical information. GFR is reported in mL/min/1.73 sq m. Calculation based on the Chronic Kidney Disease Epidemiology Collaboration (CKD- EPI) equation refit without adjustment for race. GFR, EST. >60 >=60 025 12:29 AM CDT [facility] GFR, EST. NONAFRICAN >60 >=60 08/03/2024 12:29 AM CDT [facility] Blood Venipuncture / Unknown 08/02/2024 11:21 PM CDT 08/03/2024 12:05 AM CDT Sergio Rivera MD CHEMISTRY ORDERABLES Final Resul t [facility] [address] [place] [address] * TROPONIN I, HIGH SENSITIVITY (HSTRP) (08/01/2024 2:48 PM CDT) TROPONIN I, HIGH SENSITIVITY- [facility] 4 <=14 ng/L 08/01/2024 3:45 PM CDT [facility] Comment: High-sensitivity troponin I results are reported in ng/L making the result appear to be 1,000 times higher than the contemporary troponin I value which is reported in ng/ml. Results from [place]. Blood Venipuncture / Unknown 08/01/2024 2:48 PM CDT 08/01/2024 3:08 PM CDT Jack Leiva MD CHEMISTRY ORDERABLES Deann l Result Performing Organization Address [facility] Co de Phone Number [facility] [address] [place] [address] * Gold Top Tube (08/01/2024 2:48 PM CDT) Blood No Phlebotomy Charged / Unknown 08/01/2024 2:48 PM CDT 08/01/2024 3:12 PM CDT Jack Leiva MD CHEMISTRY ORDERABLES Deann l Result Performing Organization Address [facility] de Phone Number [facility] [address] [place] [address] * Blue Top Tube (08/01/2024 2:48 PM CDT) Blood No Phlebotomy Charged / Unknown 08/01/2024 2:48 PM CDT 08/01/2024 3:12 PM CDT Jack Leiva MD HEMATOLOGY ORDERABLES Fin al Result Performing Organization Address [facility] de Phone Number [facility] [address] [place] [address] * Magnesium (08/01/2024 2:48 PM CDT) MAGNESIUM 1.6 1.6 - 2.6 mg/dL 08/01/2024 3:39 PM CDT [facility] Blood Venipuncture / Unknown 08/01/2024 2:48 PM CDT 08/01/2024 3:08 PM CDT us Jack Leiva MD CHEMISTRY ORDERABLES Deann l Result Performing Organization Address City/[facility]/ZIP Co de Phone Number [facility] [address] [place] [address] * B-Type Natriuretic Peptide (BNP) (08/01/2024 2:48 PM CDT) B TYPE NATRIURETIC PEPTIDE 23 <100 pg/mL 08/01/2024 3:37 PM CDT [facility] Blood Venipuncture / Unknown 08/01/2024 2:48 PM CDT 08/01/2024 3:08 PM CDT Jack Leiva MD CHEMISTRY ORDERABLES Deann l Result Performing Organization Address [facility] Co de Phone Number [facility] [address] [place] [address] * EKG 12 LEAD (08/01/2024 2:41 PM CDT) Ventricular Rate 75 BPM EXTERNAL EKG Atrial Rate 75 BPM EXTERNAL EKG P-R Interval 134 ms EXTERNAL EKG QRS Duration 82 ms EXTERNAL EKG Q-T Duration 380 ms EXTERNAL EKG QTC CALCULATION 424 ms EXTERNAL EKG P [place] -77 degrees EXTERNAL EKG R [place] 28 degrees EXTERNAL EKG T [place] 53 degrees EXTERNAL EKG 08/01/2024 2:41 PM CDT Impressions EXTERNAL EKG - 08/04/2024 12:00 PM CDT Atrial-sensed ventricular-paced rhythm Abnormal ECG No previous ECGs available Confirmed by Maryann Clay ([id number]) on 08/04/2024 11:59:59 AM Narrative Procedure Note Maryann Clay MD - 08/04/2024 IMPRESSION: Atrial-sensed ventricular-paced rhythm Abnormal ECG No previous ECGs available Confirmed by Maryann Clay ([id number]) on 08/04/2024 11:59:59 AM us Jack Leiva [...] Romelia Bowen D.O. PS: PS Report ID: [id number] Reading Location: [place] [address] Procedure Note Romelia Bowen DO - 08/01/2024 [...] Romelia Bowen D.O. PS: PS Report ID: [id number] Reading Location: [id number] IMPRESSION: Patchy left basilar airspace opacities, which may be related to subsegmental atelectasis/scarring versus developing airspace disease. Jack Leiva MD IMG DIAGNOSTIC ORDERABLES Final Result * RSV,SARS-COV-2,INFLUENZA A&B BY PCR (08/01/2024 2:28 PM CDT) FLU A Negative Negative, Error 08/01/2024 3:20 PM CDT [facility] FLU B Negative Negative 08/01/2024 3:20 PM CDT [facility] RESP SYNC VIRUS Negative Negative 3:20 PM CDT [facility] SARSCOV2 NOT DETECTED (Reference Range for this test is Not Detected) 08/01/2024 3:20 PM CDT [facility] Comment:This test was perfor med by a Reverse Freight Checker PCR Method. Swab NASOPHARYNGEAL STRUCTURE / Unknown Non-Phlebotomy Collection / Unknown 08/01/2024 2:28 PM CDT 08/01/2024 2:33 PM CDT Jack Leiva MD MICROBIOLOGY - GENERAL OR DERABLES Final Result Performing Organization Address City/[facility]/ZIP Co de Phone Number [facility] [address] [place] [address] * EKG SCAN (08/01/2024 12:00 AM CDT) 08/01/2024 us Provider Scan IMG ECG ORDERABLES Final Result RESULTING AGENCY * CT - CHEST (07/22/2024 12:00 AM CDT) 07/22/2024 us Provider Scan IMG CT ORDERABLES Final Result Performing Organization Address City/[facility]/ZIP Co de Phone Number SCAN * XR - LOWER EXTREMITY (07/10/2024 12:00 AM CDT) 07/10/2024 us Provider Scan IMG DIAGNOSTIC ORDERABLES Final Result Performing Organization Address City/[facility]/ZIP Co de Phone Number SCAN * HEMOGLOBIN, A1C (10/02/2023 12:00 AM CDT) HGB-A1C 7.8 SCAN 10/02/2023 us Provider Scan CHEMISTRY ORDERABLES Final Resul t Performing Organization Address [facility] Co de Phone Number SCAN * PATHOLOGY CYTOLOGY COMMUNICATION CENTER OPERATOR (07/05/2022 2:24 PM CDT) SPECIMEN ADEQUACY A scant cellular component is noted. Scant cellularity is likely due to presence of lubricant. 07/08/2022 8:38 AM CDT [facility] DESCRIPTIVE DIAGNOSIS NEGATIVE FOR INTRAEPITHELIAL LESIONS OR MALIGNANCY. 07/08/2022 8:38 AM CDT [facility] at 0838 CDT OTHER FINDINGS Atrophic hormonal pattern. 07/08/2022 8:38 AM CDT [facility] Automated Examination This sample was not evaluated by the automated imaging and review system ([employer] System, [employer], [place], [place] due to technical and / or biologic factor(s). The case was screened, reviewed, and finalized by a kitchen food assembler and / or pathologist. 07/08/2022 8:38 AM CDT [facility] Disclaimer The PAP smear is a screening [...] unless clinically indicated. 07/08/2022 8:38 AM CDT [facility] Other CERVIX UTERI STRUCTURE / Unknown Non-Phlebotomy Collection / Unknown 07/05/2022 2:24 PM CDT 07/05/2022 2:24 PM CDT us Pili Elkins APRN, CNP PATHOLOGY/CYTOLOGY O RDERABLES Final Result [facility] [address] [place] [address], [place] * HUMAN PAPILLOMA VIRUS (HPV) (07/05/2022 2:24 PM CDT) HPV OTHER HIGH RISK TYPES, PCR NEGATIVE NEGATIVE 07/06/2022 2:37 PM CDT [facility] Comment: The following Other High Risk types [...] 16 NEGATIVE NEGATIVE 07/06/2022 2:37 PM CDT [facility] Comment: A negative high-risk HPV result does [...] 18 NEGATIVE NEGATIVE 07/06/2022 2:37 PM CDT [facility] Comment: A negative high-risk HPV result does [...] OR DIAGNOSTIC SCREENING 07/06/2022 2:37 PM CDT [facility] Other Non-Phlebotomy Collection / Unknown 07/05/2022 2:24 PM CDT 07/05/2022 2:24 PM CDT Narrative [facility] - 07/06/2022 2:37 PM CDT Performed by Real-Time Polymerase Chain Reaction (PCR) on the Ronnie Vinay 4800. This assay has been validated for use with post-aliquot samples from the [employer] processor. us Pili Elkins APRN, ACID WASH OPERATOR LAB SEND OUTS Deann l Result [facility] [address] [place] [address], [facility] [place] [address] * HM COLONOSCOPY (01/09/2020) us Genaro Jensen DO PROCEDURE/MINOR SURGICAL ORDERA BLES Final Result * AMB REFERRAL TO PODIATRY (08/13/2019) us Alvarez Mensah MD OUTPATIENT REFERRALS Final Res ult * POCT STOOL, OCCULT BLOOD, DIAGNOSTIC (09/07/2018 1:20 PM CDT) OCCULT BLOOD, STOOL Negative Negative, Other POC HEMOCULT CONTROL Waste Removalist Pass 09/07/2018 1:20 PM CDT Pili Brittni LEARNING DESIGN SPECIALIST, ACID WASH OPERATOR POINT OF CARE TESTIN G (MANUAL) Final Result from Last 3 Months or Most Recently Relevant to Health Maintenance Insurance MEDICARE C [employer] Care Teams Technical Support Coordinator Relationship Specialty Start Date End Date Justen Gale MD #2 [facility] [address] [place] [address] PCP - General Family Medicine 10/17/17 David Roberts APRN, NETTA #2 [place] [address] Nurse Practitioner Advanced Practice Nurse 01/31/22 Annel Rod MD #2 [facility] [address] [place] [address] Consulting Physician Endocrinology 07/01/22
--- OUTSIDE RECORDS SUMMARY | 2024-10-03 00:23 | XMS_ITS | Encounter Summary ---
Author Organization [facility] Address [address] [place] [address] Phone Care Team Providers Care Neonatal Nurse Name Role Phone Justen Gale MD Primary Care Provider [phone] David Roberts APRN, LEGAL JOB TITLES Unavailable Annel Rod MD Unavailable Reason for Visit * Reason Onset Date Comments Advice Only 11/21/2023 Encounter Details Date Type Department Care Team (Late st Contact Info) Description 11/21/2023 Telephone [facility] [address] [place] [address] Justen Gale MD #[address] [address] Advice Only Social History Tobacco Use Types [...] 3:17 PM CDT RFC: Alejandra from [facility] is calling to state that patient [...] Visit [facility] - [place] #2 [place] [address] Annel Rod MD #2 [facility] [address] [place] [address] 11/13/2024 2:00 PM CDT [facility] 1 [place] [address] Angelito Alegria APRN, LEGAL JOB TITLES #2 [facility] [address] [place] [address] Discharge Disposition: Discharged to home or Selfcare documented as of this encounter Visit Diagnoses Not on filedocumented in this encounter Additional Health Concerns Infection Onset Date Last Indicated Resolved Time COVID - 19 08/01/2024 08/01/2024 08/01/2024 3:20 PM CDT Assessment Noted Time PHQ-9 Depression Total Score: 8 01/18/20 2:24 PM CDT documented as of this encounter Care Teams Neonatal Nurse Relationship Specialty Start Date End Date Justen Gale MD #2 [facility] [address] [place] [address] PCP - General Family Medicine 10/17/17 David Roberts APRN, NETTA #2 [place] [address] Nurse Practitioner Advanced Practice Nurse 01/31/22 Annel Rod MD #2 [facility] [address] [place] [phone] Consulting Physician Endocrinology 07/01/22 documented as of this encounter
--- OUTSIDE RECORDS SUMMARY | 2024-10-03 00:23 | XMS_ITS | Encounter Summary ---
Author Organization [facility] Address [address] [place] [address] Phone Care Team Providers Care President Finance Company Name Role Phone Justen Gale MD Primary Care Provider [phone] David Roberts APRN, STEEL RULE DIE MAKER APPRENTICE Unavailable [phone] Annel Rod MD Unavailable Reason for Visit * Reason Comments Medication Refill Encounter Details Date Type Department Care Team (Late st Contact Info) Description 08/07/2023 Refill [facility] - [place] #2 [place] [address] Annel Rod MD #[address] [address] Medication Refill Social History [...] 11:15 AM CDT Office Visit [facility] - Endocrinology [facility] #2 [place] [address] Annel Rod MD #[address] [address] 11/13/2024 2:00 PM CDT [facility] 1 [place] [address] Angelito Alegria APRN, NETTA #[address] [address] Discharge Disposition: Discharged to home or Selfcare documented as of this encounter Visit Diagnoses Not on filedocumented in this encounter Additional Health Concerns Infection Onset Date Last Indicated Resolved Time COVID - 19 08/01/2024 08/01/2024 08/01/2024 3:20 PM CDT Assessment Noted Time PHQ-9 Depression Total Score: 8 01/18/20 2:24 PM CDT documented as of this encounter Care Teams President Finance Company Relationship Specialty Start Date End Date Justen Gale MD #[address] [place] [address] PCP - General Family Medicine 10/17/17 David Roberts APRN, STEEL RULE DIE MAKER APPRENTICE #2 [place] [address] Nurse Practitioner Advanced Practice Nurse 01/31/22 Annel Rod MD #[address] [address] Consulting Physician Endocrinology 07/01/22 documented as of this encounter
--- OUTSIDE RECORDS SUMMARY | 2024-10-03 00:23 | XMS_ITS | Encounter Summary ---
Author Organization [facility] Address [address] [place] [address] Phone Care Team Providers Care Tearoom Hostess Name Role Phone Justen Gale MD Primary Care Provider David Roberts APRN, BOWLING TEACHER Unavailable [phone] Annel Rod MD Unavailable Reason for Visit * Reason Onset Date Comments Pain 09/23/2024 Encounter Details Date Type Department Care Team (Late st Contact Info) Description 09/23/2024 Telephone [facility] [address] [place] [address] Justen Gale MD #[address] [address] Pain Social History Tobacco Use Types Packs/Day Years Used Date Smoking Tobacco: Never Smokeless Tobacco: Never Alcohol Use Standard Drinks/Week Comments No 0 (1 standard drink = 0.6 oz pur e alcohol) [facility] Utilities Answer Date Recorded In the past 12 months has [employer] electric, gas, oil, or water company threatened [...] How often do you attend chur or taoist services? More than 4 times per year [...] Total Score - Questions 1-9 0 07/23 [facility] - Occupational [...] time in the past 12 m [place], were you homeless or living in a [...] MyChart message back. * Telephone Encounter - Sabirna Ortega - 09/23/2024 3:14 PM CDT Symptom: Pain - Severe widespread - patient has RA Outcome: Transfer to progressive care nurse queue Reason: Caller denied all higher acuity questions The caller accepted this outcome. Caller Denied: * Chest pain * Headache * Eye pain * Abdominal pain * Genital pain documented in this encounter Plan of Treatment Upcoming Encounters Date Type Department Care Team (Late st Contact Info) Description 10/22/2024 11:15 AM CDT Office Visit [facility] #2 [place] [address] Annel Rod MD #2 [facility] [address] [place] [address] 11/13/2024 2:00 PM CDT [facility] 1 [place] [address] Angelito Alegria APRN, BOWLING TEACHER #2 [facility] [address] [place] [address] Discharge Disposition: Discharged to home or Selfcare documented as of this encounter Visit Diagnoses Not on filedocumented in this encounter Additional Health Concerns Assessment Noted Time PHQ-9 Depression Total Score: 0 08/02/19 25 1:09 PM CDT documented as of this encounter Care Teams Tearoom Hostess Relationship Specialty Start Date End Date Justen Gale MD #2 [facility] [address] [place] [address] PCP - General Family Medicine 10/17/17 David Roberts APRN, BOWLING TEACHER #2 [place] [address] Nurse Practitioner Advanced Practice Nurse 01/31/22 Annel Rod MD #2 [facility] [address] [place] [address] Consulting Physician Endocrinology 07/01/22 documented as of this encounter
--- OUTSIDE RECORDS SUMMARY | 2024-10-03 00:23 | XMS_ITS | Encounter Summary ---
Author Organization [facility] Address [address] [place] [address] Care Team Providers Care Machine Shop Specialist Name Role Phone Justen Gale MD Primary Care Provider [phone] Encounter Details Date Type Department Care Team (Late st Contact Info) Description 08/14/2024 Results Follow-Up ER at [facility] [place] [facility] [address] [place] [address] Josué Bernal, STEPH [address] [place] [phone] Social History Tobacco Use Types Packs/Day [...] medical care, and heating? Somewhat hard 05/16/2023 [facility] [place] [facility] - Occupational Stress [...] in a long-term (including now)? 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
--- OUTSIDE RECORDS SUMMARY | 2024-10-03 00:23 | XMS_ITS | Encounter Summary ---
Author Organization [facility] Address [address] [place] [address] Phone Care Team Providers Care Traffic Control Signaler Name Role Phone Justen Gale MD Primary Care Provider [phone] David Roberts APRN, MEAT DRESSER Unavailable [phone] Annel Rod MD Unavailable Reason for Visit * Reason Comments Medication Refill Encounter Details Date Type Department Care Team (Late st Contact Info) Description 09/30/2023 Refill [facility] - [place] #2 [place] [address] Annel Rod MD #[address] [address] Medication Refill Social History Tobacco [...] Description 10/22/2024 11:15 AM CDT Office Visit [facility] - Endocrinology [facility] #2 [place] [address] Annel Rod MD #[address] [address] 11/13/2024 2:00 PM CDT [facility] 1 [place] [address] Angelito Alegria APRN, NETTA #[address] [address] Discharge Disposition: Discharged to home or Selfcare documented as of this encounter Visit Diagnoses Not on filedocumented in this encounter Additional Health Concerns Infection Onset Date Last Indicated Resolved Time COVID - 19 08/01/2024 08/01/2024 08/01/2024 3:20 PM CDT Assessment Noted Time PHQ-9 Depression Total Score: 8 01/18/20 2:24 PM CDT documented as of this encounter Care Teams Traffic Control Signaler Relationship Specialty Start Date End Date Justen Gale MD #[address] [place] [address] PCP - General Family Medicine 10/17/17 David Roberts APRN, MEAT DRESSER #2 [place] [address] Nurse Practitioner Advanced Practice Nurse 01/31/22 Annel Rod MD #[address] [address] Consulting Physician Endocrinology 07/01/22 documented as of this encounter
[2024-10-03] MEDS: SODIUM CHLORIDE 0.9% IV 1,000 ML 999 ML IV CONT (00:59)
[2024-10-03] MEDS: ONDANSETRON INJ 4 MG/2 ML VIAL IV PUSH (00:59)
[2024-10-03 01:00] LABS: Alanine Aminotransferase 30 U/L (6-35); Alkaline Phosphatase 63 U/L (38-126); Anion Gap 7 mmol/L (4-12); Aspartate Amino Transferase 28 U/L (14-36); Bilirubin,Total 0.5 mg/dL (0.2-1.3); Blood Urea Nitrogen 21 mg/dL (7-17); Calcium 9.6 mg/dL (8.4-10.2); Carbon Dioxide 28 mmol/L (22-30); Chloride 103 mmol/L (98-107); Estimated CRCL calculation 70 ml/min; Estimated Glomerular Filt Rate > 60; Glucose 124 mg/dL (65-110); Potassium 4.2 mmol/L (3.4-5.0); Sodium 138 mmol/L (137-145); Total Protein 7.7 g/dL (6.3-8.2)
[2024-10-03] MEDS: HYDROmorphone HCL INJ (*CRX) 2 MG/ML VIAL 0.5 MG IV PUSH (01:00)
[2024-10-03 01:01] LABS: INR 1.5; Prothrombin Time 18.1 Seconds (11.1-14.7)
[2024-10-03 01:02] LABS: Partial Thromboplastin Time 28.1 Seconds (22.3-36.8)
--- NOTE | 2024-10-03 01:11 | ED_ITS ---
HPI - Back Pain/Injury General Chief Complaint: Back Pain/Injury Stated Complaint: back pain Time Seen by Provider: 10/02/24 23:51 History of Present Illness HPI Narrative: Patient is a 69-year-old female who presents to the ER with lower back pain. She reports she has chronic back pain but yesterday pain became more intense. Patient reports the pain started on her left side but now encompasses her whole back. She also endorses urinary symptoms, including decreased urine amount and darkened color. Patient reports the pain is so bad that she can not stand up straight. She reports she has hydrocodone at home for her chronic back pain but that is not touching this pain. Patient also endorses a history of CHF, and polymyositis (an autoimmune disease). She denies any upper abdominal pain, chest pain, recent fevers, or hematuria. Related Data Home Medications ?Medication ?Instructions ?Recorded ?Confirmed ?Last Taken ?Type exemestane 25 mg tablet 25 mg PO HS 01/06/20 06/20/24 12/04/23 22:00 History insulin glargine 100 unit/mL (3 32 unit subcut QAM 01/06/20 06/20/24 12/04/23 11:00 History mL) subcutaneous pen (Lantus Solostar U-100 Insulin) ropinirole 5 mg tablet 5 mg PO 01/06/20 06/20/24 12/04/23 22:00 History insulin lispro 100 unit/mL 28 unit subcut TID 03/19/22 06/20/24 Unknown History subcutaneous pen (Humalog KwikPen (U-100) Insulin) oxybutynin chloride 15 mg 15 mg PO DAILY 11/06/22 06/20/24 12/04/23 11:00 History tablet,extended release 24 hr gabapentin 300 mg capsule 300 mg PO TID 06/25/23 06/20/24 12/04/23 22:00 History Allergies Allergy/AdvReac Type Severity Reaction Status Date / Time ceftriaxone Allergy Severe SOB Verified 10/02/24 23:22 cephalexin Allergy Severe Difficulty Verified 10/02/24 23:22 Breathing Cephalosporins Allergy Severe Difficulty Verified 10/02/24 23:22 Breathing lorazepam Allergy Severe Swelling Verified 10/02/24 23:22 trazodone Allergy Severe Swelling Verified 10/02/24 23:22 of Lip/Tongue/Throat metoclopramide Allergy Intermediate Other Verified 10/02/24 23:22 chlorhexidine Allergy Mild BLISTERING Verified 10/02/24 23:22 levofloxacin Allergy Mild Hives / Verified 10/02/24 23:22 Red Face ketorolac Allergy Itching Verified 10/02/24 23:22 latex Allergy Rash Verified 10/02/24 23:22 meropenem Allergy Rash Verified 10/02/24 23:22 nitrofurantoin Allergy Itching Verified 10/02/24 23:22 sulfamethoxazole (From Allergy Itching Verified 10/02/24 23:22 Sulfamethoxazole-Trimethoprim) trimethoprim (From Allergy Itching Verified 10/02/24 23:22 Sulfamethoxazole-Trimethoprim) oxycodone AdvReac Mild Vomiting Verified 10/02/24 23:22 amlodipine AdvReac Swelling Verified 10/02/24 23:22 lisinopril AdvReac Swelling Verified 10/02/24 23:22 pregabalin AdvReac Swelling Verified 10/02/24 23:22 reslizumab AdvReac Unknown Verified 10/02/24 23:22 Review of Systems 2 Review of Systems: All systems reviewed & are unremarkable except as noted in HPI and below PMFSH Past Medical History Medical History Throat pain in adult Oral ulcer Chronic anticoagulation Overactive bladder Type 2 diabetes mellitus Deep venous thrombosis Irritable bowel syndrome Restless leg syndrome Obstructive sleep apnea on CPAP Congestive heart failure Chronic back pain COVID-19 Collagenous colitis Morbid obesity Breast cancer Depression Anxiety Peripheral neuropathy Kidney stone Pulmonary embolism positive for coagulation workup Multiple thyroid nodules Surgical History Surgical History History of umbilical hernia repair History of colonoscopy Status post insertion of spinal cord stimulator History of cystoscopy History of ureter stent History of cholecystectomy History of bilateral mastectomy History of esophagogastroduodenoscopy (EGD) History of right oophorectomy History of total right knee replacement History of cardiac catheterization Reportedly negative for coronary artery disease. Family History Family History Mother Diabetes mellitus Acute myocardial infarction Cerebrovascular accident Hypertension Congestive heart failure Father Prostate carcinoma Sibling Breast cancer Acute myocardial infarction Chronic obstructive pulmonary disease Social History Social History Social History: Surrogate medical decision maker: Jimmie Marques, spouse. Code status: Full code. Smoking packs per day: 0 Smoking cigarettes per day: 0.0 Years smoked: 2 Smoking pack-years: 0.00 Smoking status: Former smoker Second hand tobacco smoke exposure: Yes Alcohol intake: never Substance use: never Substance use type: does not use Do You Feel Safe in your Home?: Yes Lack of Transportation: No Lack of Food: Never True Current Housing: I Have Housing Concerned About Future Housing: No Difficulty Paying Gas/Electric Bills: No Difficulty Paying for Meds: No Currently Unemployed: No Education: Decline to Answer Difficulty w/ Childcare or Family Care: No Living arrangements: with family Additional occupation/education comments: Disabled. Spiritual care concerns: No Exam 2 Narrative: GENERAL: Ill appearing, obese, non-toxic, in acute distress due to pain. HEAD: Normocephalic, atraumatic. NECK: Supple. No adenopathy, no masses. RESPIRATORY: Airway patent, respirations nonlabored. Clear to auscultation bilaterally, no rales, rhonchi, wheezing. CARDIOVASCULAR: Regular rate and rhythm without murmurs, rubs, or gallops. Peripheral pulses 2+ and equal bilaterally. + CVA tenderness bilaterally ABDOMINAL: Soft, tender LLQ and RLQ, nondistended, no hepatosplenomegaly. Normoactive BS. MUSCULOSKELETAL: Moves all extremities. Strength/ROM intact without gross deformities. SKIN: Warm, dry, normal color. No rashes. NEURO: A&O X3. Speech clear. Cranial nerves II-XII intact. No ataxic movements. PSYCHIATRIC: Appropriate mood and affect. Normal interaction. Course Vital Signs Vital signs: Vital Signs Temperature 36.5 C 10/02/24 23:16 Pulse Rate 91 10/02/24 23:16 Blood Pressure 144/85 H 10/02/24 23:16 Pulse Oximetry 99 10/02/24 23:16 Oxygen Delivery Room Air 10/02/24 23:16 Temperature 36.5 C 10/02/24 23:20 Pulse Rate 91 10/02/24 23:20 Blood Pressure 144/85 H 10/02/24 23:20 Pulse Oximetry 99 10/02/24 23:20 Oxygen Delivery Room Air 10/02/24 23:20 MDM - Back Pain/Injury MDM Narrative Medical decision making narrative: Patient is a 69-year-old female who presents to the ER with lower back pain. She reports she has chronic back pain but yesterday the pain became more intense. Patient reports the pain started on her left flank but now encompasses her whole back. She also endorses urinary symptoms, including decreased urine amount and darkened color. Patient reports the pain is so bad that she can not stand up straight. She reports she has hydrocodone at home for her chronic back pain but that is not touching this pain. Patient also endorses a history of CHF, and polymyositis (an autoimmune disease). She denies any upper abdominal pain, chest pain, recent fevers, or hematuria. Labs Ordered: CBC, CMP, INR, PTT, UA Imaging Ordered: CT abdomen pelvis Medications Ordered: Dilaudid 0.5 IV, 1 L normal saline IV bolus, Zofran 4 mg IV Results: Patient's CBC indicates a white blood cell count of 13.7. Her CMP indicates a BUN of 21 and a glucose of 124. Patient's urinalysis indicates 1+ protein, trace glucose and ketones, and 1+ blood. Diagnosis: Back pain Patient Education/Shared MDM: Results of lab work and imaging shared with patient. She endorses improvement of symptoms following medication administration. Patient strongly advised to maintain hydration status upon discharge and follow-up with her PCP as soon as possible. Strict return precautions provided. Patient verbalized understanding and is in agreement with plan. Vital signs stable at time of discharge. All questions answered. Differential Diagnosis Differential diagnosis: Likely lumbar radiculopathy, strain of lumbar region, renal colic, pyelonephritis and other (Kidney stone) Lab Data Attestation: I reviewed the patient's lab results. 10/03/24 00:43 10/03/24 00:43 Labs: Lab Results 10/02/24 10/03/24 Range/Units 23:58 00:43 WBC 13.7 H (4.5-10.0) K/mm3 RBC 4.31 (4.2-5.4) M/mm3 Hgb 12.6 (12.0-15.0) g/dL Hct 40.6 (37.0-47.0) % MCV 94.2 (80-100) fl MCH 29.2 (26-34) pg MCHC 31.0 L (32-36) g/dl RDW 13.6 (11.5-14.5) % Plt Count 283 (150-375) k/mm3 MPV 9.6 (7.4-10.4) fl Immature Gran % (Auto) 4.7 H (0-0.5) % Neut % (Auto) 69.9 (45.5-73.1) % Lymph % (Auto) 17.9 L (18.3-44.2) % [place] % (Auto) 7.2 (2.6-8.5) % Eos % (Auto) 0.1 (0-4.4) % Baso % (Auto) 0.2 (0.2-1.2) % Lymph # (Auto) 2.46 (0.9-3.2) K/mm3 [place] # (Auto) 1.0 H (0.1-0.6) K/mm3 Eos # (Auto) 0.0 (0-0.3) K/mm3 Baso # (Auto) 0.0 (0.0-0.1) K/mm3 Abs Immat Gran (auto) 0.64 H (0.00-0.031) K/mm3 Absolute Neuts (auto) 9.6 H (1.3-6.7) K/mm3 Absolute Nucleated RBC 0.000 (0.0-0.012) K/mm3 Nucleated RBC % 0.0 (0.0-0.2) % PT 18.1 H (11.1-14.7) Seconds INR 1.5 APTT 28.1 (22.3-36.8) Seconds Sodium 138 (137-145) mmol/L Potassium 4.2 (3.4-5.0) mmol/L Chloride 103 (98-107) mmol/L Carbon Dioxide 28 (22-30) mmol/L Anion Gap 7 (4-12) mmol/L BUN 21 H (7-17) mg/dL Creatinine 0.81 (0.7-1.0) mg/dL Estim Creat Clear Calc 70 ml/min Estimated GFR > 60 (59 - ) Glucose 124 H (65-110) mg/dL Calcium 9.6 (8.4-10.2) mg/dL Total Bilirubin 0.5 (0.2-1.3) mg/dL AST 28 (14-36) U/L ALT 30 (6-35) U/L Alkaline Phosphatase 63 (38-126) U/L Total Protein 7.7 (6.3-8.2) g/dL Albumin 4.0 (3.5-5.1) g/dL Urine Color Yellow (Yellow) Urine Appearance Clear (Clear) Urine pH 5.5 (5.0-9.0) Ur Specific [place] 1.031 (1.001-1.035) Urine Protein 1+ H (Negative) mg/dL Urine Glucose (UA) Trace H (Negative) mg/dL Urine Ketones Trace H (Negative) mg/dL Ur Blood (Man) 1+ H (Negative) Urine Nitrate Negative (Negative) Urine Bilirubin Negative (Negative) Urine Urobilinogen 1.0 (<2.0) mg/dL Leukocyte Esterase Rfl Negative (Negative) PAO/UL Urine RBC 0-2 (0-2) /hpf Urine WBC 0-5 (0-3) /hpf Ur Squamous Epith Cells None seen (Few) /hpf Urine Bacteria None seen /hpf Urine Casts 0-2 Discharge Plan Discharge Clinical Impression: Low back pain, Chronic back pain Patient Disposition: Home Condition: Stable Instructions: Antibiotic Form, Back Pain (ED), Lower Back Exercises (ED) Additional Instructions: Please return to the ER with any worsening symptoms. Follow-up with primary care provider as soon as possible. Take all regularly scheduled medications as prescribed. Patient Language: Botswanan Prescriptions: No Action gabapentin 300 mg capsule 300 mg PO TID omeprazole 40 mg capsule,delayed release(DR/EC) 40 mg PO DAILY 30 Days Qty: 30 2RF clobetasol 0.05 % gel 1 applic topical DAILY 14 Days Qty: 15 0RF Rx Instructions: to be pplied in the right cheek avoid eating or drinking for 30 minutes after application mupirocin [Centany] 2 % ointment 1 applic topical BID 30 Days Qty: 15 0RF exemestane 25 mg tablet 25 mg PO HS ropinirole 5 mg tablet 5 mg PO HS insulin glargine [Lantus Solostar U-100 Insulin] 100 unit/mL (3 mL) insulin pen 32 unit SUBCUT QAM insulin lispro [Humalog KwikPen Insulin] 100 unit/mL insulin pen 28 unit SUBCUT TID albuterol sulfate 90 mcg/actuation HFA aerosol inhaler 1 inh inhalation QID PRN (Reason: shortness of breath or wheezing) Qty: 6.7 0RF oxybutynin chloride 15 mg tablet extended release 24hr 15 mg PO DAILY Xarelto 20 mg tablet 20 mg PO 1700 Qty: 30 0RF hydrocodone-acetaminophen 10-325 mg tablet 1 tablet PO Q6H PRN (Reason: pain (scale score 7-10)) Qty: 10 0RF ondansetron 4 mg tablet,disintegrating 4 mg PO Q8H PRN (Reason: nausea and vomiting) Qty: 10 0RF Follow-up/Referrals: Shahla,Justen Spicer MD [Primary Care Provider] -
[2024-10-03 01:22] LABS: Basophils Percent Auto 0.2 % (0.2-1.2); Eosinophils Percent Auto 0.1 % (0-4.4); Hematocrit 40.6 % (37.0-47.0); Hemoglobin 12.6 g/dL (12.0-15.0); Immature Granulocyte Absolute 0.64 K/mm3 (0.00-0.031); Immature Granulocyte Percent A 4.7 % (0-0.5); Lymphocytes Absolute Auto 2.46 K/mm3 (0.9-3.2); Lymphocytes Percent Auto 17.9 % (18.3-44.2); Mean Corpuscular Hemoglobin 29.2 pg (26-34); Mean Corpuscular Volume 94.2 fl (80-100); Mean Platelet Volume 9.6 fl (7.4-10.4); Monocytes Percent Auto 7.2 % (2.6-8.5); Neutrophils Absolute Auto 9.6 K/mm3 (1.3-6.7); Neutrophils Percent Auto 69.9 % (45.5-73.1); Platelet Count Result 283 k/mm3 (150-375); Red Blood Count 4.31 M/mm3 (4.2-5.4); Red Cell Distribution Width 13.6 % (11.5-14.5); White Blood Count 13.7 K/mm3 (4.5-10.0)
[2024-10-03] MEDS: HYDROcodone/acetaminophen (*CRX) 5-325 MG TABLET 1 TAB PO (04:09)
[2024-10-03 05:14] VITALS: BP 137/76; PULSE 68; RESP 16; TEMP 37.2; O2SAT 98
== END 2024-10-03 05:15 | disposition home or self-care (01) ==
PROVIDERS: Emergency Medicine; Emergency Provider Registered Nurse; PCP Internal Medicine
DX: M54.50 Low back pain, unspecified (principal); G89.29 Other chronic pain; I50.9 Heart failure, unspecified; M33.20 Polymyositis, organ involvement unspecified; E11.42 Type 2 diabetes mellitus with diabetic polyneuropathy; E66.01 Morbid (severe) obesity due to excess calories; Z68.42 Body mass index [BMI] 45.0-49.9, adult; K58.9 Irritable bowel syndrome, unspecified; G25.81 Restless legs syndrome; G47.33 Obstructive sleep apnea (adult) (pediatric); N32.81 Overactive bladder; F32.A Depression, unspecified; F41.9 Anxiety disorder, unspecified; Z96.82 Presence of neurostimulator; Z96.651 Presence of right artificial knee joint; Z86.16 Personal history of COVID-19; Z85.3 Personal history of malignant neoplasm of breast; Z87.891 Personal history of nicotine dependence; Z87.442 Personal history of urinary calculi; Z86.711 Personal history of pulmonary embolism; Z86.718 Personal history of other venous thrombosis and embolism; Z90.49 Acquired absence of other specified parts of digestive tract; Z90.13 Acquired absence of bilateral breasts and nipples; Z90.721 Acquired absence of ovaries, unilateral; Z79.4 Long term (current) use of insulin; Z79.01 Long term (current) use of anticoagulants; Z79.899 Other long term (current) drug therapy
CPT/HCPCS: 36415; 74176; 80053; 81001; 85025; 85610; 85730; 96361; 96374; 96375; 99284; A9270; J1171; J2405; J7030

== ENCOUNTER 2024-10-06 18:26 | Emergency (ER) | payer MEDICARE, MEDICAID, SELFPAY ==
--- NOTE | ~2024-10-06 | CT_ITS ---
History: Back pain PROCEDURE: CT lumbar spine without intravenous contrast. COMPARISON: CT examination of the abdomen and pelvis dated 10/03/2024 TECHNIQUE: Multiple contiguous axial images of the lumbar spine were performed without the administration of int ravenous contrast. DLP: 1513 mGy-cm FINDINGS: Preservation of the normal lordotic curvature of the lumbar spine is identified. 15 degrees of levoscoliotic curvature of the lumbar spine is present. Degenerative disease is also noted, with osteophyte formation, disc space narrowing, endplate changes and vacuum phenomena. Facet arthropathy is also present. Dorsal column stimulator device is incompletely visualized, heading cranially to the thoracic spine. Significant degenerative disease is also detected within the bilateral sacroiliac joint spaces with s clerosis and vacuum phenomena. At the level of L2/L3: Is a broad-based disc protrusion with mass effect on both the spinal canal and bilateral neural foramen. Hypertrophy of the ligamentum flavum is also noted at this level contributes to the degree of spinal stenosis. At the level of L3/L4: Is a right paracentral disc protrusion with mass effect on both the spinal can al and right neuroforamen at this level. Hypertrophy of the ligamentum flavum is also noted contributing to the degree of spinal stenosis. The anterior to posterior diameter of the spinal canal at this level is 7 mm, clearly the narrowest p ortion of the visualized spinal canal. No acute compression fractures are present. Colonic diverticulosis. Impression: Degenerative disease and spinal stenosis, without acute compression fracture. Reviewed, dictated and finalized at location A. Impression: Degenerative disease and spinal stenosis, without acute compression fracture.
--- OUTSIDE RECORDS SUMMARY | 2024-10-06 18:30 | XMS_ITS | Encounter Summary ---
Author Organization [facility] Address [address] [place] [address] Phone Care Team Providers Care Farmworker [employer] Name Role Phone Justen Gale MD Primary Care Provider David Roberts APRN, MONUMENT SETTER Unavailable Annel Rod MD Unavailable Reason for Visit * Reason Comments Medication Refill Encounter Details Date Type Department Care Team (Late st Contact Info) Description 02/07/2023 Refill [facility] #2 [place] [address] Catrina Quiñonez MD #2 [place] [address] Medication Refill Social History Tobacco Use Types [...] 03/03/22 Office Visit Pili Elkins APRN, NETTA [facility] [place]ardo Showing recent visits [...] Visit [facility] - Endocrinology - [place] #2 [place] [address] Annel Rod MD #[address] [address] 11/13/2024 2:00 PM CDT Appointment [facility] Cardiology Services 1 [place] [address] Angelito Alegria, HOSE INSPECTOR AND PATCHER, MONUMENT SETTER #[address] [address] Discharge Disposition: Discharged to home or Selfcare documented as of this encounter Visit Diagnoses Not on filedocumented in this encounter Additional Health Concerns Infection Onset Date Last Indicated Resolved Time COVID - 19 08/01/2024 08/01/2024 08/01/2024 3:20 PM CDT Assessment Noted Time PHQ-9 Depression Total Score: 8 01/18/20 2:24 PM CDT documented as of this encounter Care Teams Farmworker [employer] Relationship Specialty Start Date End Date Justen Gale MD #[address] [address] PCP - General Family Medicine 10/17/17 David Roberts HOSE INSPECTOR AND PATCHER, MONUMENT SETTER #2 [place] [address] Nurse Practitioner Advanced Practice Nurse 01/31/22 Annel Rod MD #[address] [address] Consulting Physician Endocrinology 07/01/22 documented as of this encounter
--- OUTSIDE RECORDS SUMMARY | 2024-10-06 18:30 | XMS_ITS | Encounter Summary ---
Author Organization [facility] Address [address] [place] [address] Phone Care Team Providers Care Prosthetics Assistant Name Role Phone Justen Gale MD Primary Care Provider [phone] David Roberts APRN, PARTICLE BOARD SUPERVISOR Unavailable [phone] Annel Rod MD Unavailable Reason for Visit * Reason Onset Date Comments Sore Throat 06/29/2020 Encounter Details Date Type Department Care Team (Late st Contact Info) Description 06/29/2020 Telephone [facility] #[address] [place] [address] Justen Gale MD #[address] [address] Sore Throat Social History Tobacco Use Types [...] COVID-19? 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 Pt does not need testing R MAN * Telephone Encounter - Vince Hermosillo MD - 06/29/2020 3:13 PM CST No covid testing needed. If the er thought that it was warranted then they would have done this. R MAN * Telephone Encounter - Marlys Sorensen RN - 06/29/2020 8:36 AM CST Patient calling. Patient is calling to schedule Hospital/ED/Prompt-Care follow up appointment. Hospital/ED/Prompt-Care Site: [facility] ED Records Requested: Yes Reason [...] f/up and yearly PAP appointments? Please advise. R MAN documented in this encounter Plan of Treatment Upcoming Encounters Date Type Department Care Team (Late st Contact Info) Description 10/22/2024 11:15 AM CDT Office Visit [facility] Endocr[facility]ology - [place] #2 [place] [address] Annel Rod MD #2 [facility] [address] [place] [address] 11/13/2024 2:00 PM CDT [facility] 1 [place] [address] Angelito Alegria, HOME CARE MANAGER, PARTICLE BOARD SUPERVISOR #2 [facility] [address] [place] [address] Discharge Disposition: Discharged to home or Selfcare documented as of this encounter Visit Diagnoses Not on filedocumented in this encounter Additional Health Concerns Infection Onset Date Last Indicated Resolved Time COVID - 19 08/01/2024 08/01/2024 08/01/2024 3:20 PM CDT Assessment Noted Time PHQ-9 Depression Total Score: 0 09/08/19 19 1:00 PM CDT documented as of this encounter Care Teams Prosthetics Assistant Relationship Specialty Start Date End Date Justen Gale MD #2 [facility] [address] [place] [address] PCP - General Family Medicine 10/17/17 David Roberts APRN, PARTICLE BOARD SUPERVISOR #2 [place] [address] Nurse Practitioner Advanced Practice Nurse 01/31/22 Annel Rod MD #2 [facility] [address] [place] [address] Consulting Physician Endocrinology 07/01/22 documented as of this encounter
--- OUTSIDE RECORDS SUMMARY | 2024-10-06 18:30 | XMS_ITS | Clinical Summary ---
Author Organization [facility] Address [address] [facility] [place] [address] Care Team Providers Care Dba Manager Name Role Phone Justen Gale MD Primary Care Provider [phone] Source Comments [facility],non-[facility] Affiliates and Associated Physician Practices is amultiple site organization consisting of ambulatory clinics and hospital sitesin [place], [place], [place] and [place]. This disclosure is being madepursuant to the Care Everywhere program and may not contain all information available regarding this patient. Last updated 18.[facility] Control de Pacientes Allergies Active Allergy Reactions Criticality Noted Date [...] Sensor (FreeStyle Eileen 2 Sensor Systm) [facility] APPLY 1 SENSOR AND WEAR [...] Team Description 08/14/2024 Results [place] [address] Josué Bernal PA-C 08/13/2024 Telephone ER at [facility] [address] [place] [address] Jordana Abdul MD ER UC Follow-up 08/09/2024 6:46 PM CDT - 08/09/2024 9:35 PM CDT Emergency ER at [address] [id number] Yasmin Matthew DO Shortness of breath; Strep [...] medical care, and heating? Somewhat hard 05/16/2023 [facility] [place] of Occupat ional Health - Occupational Stress [...] a senior care (including now)? 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 Gender Identity Not on file Sexual [...] this topic Medical Devices Implanted Type Area Hog Trader Device Identifier Shelf Expiration Date Model / Serial / Lot Lead Nrstm 60cm Penta 3mm Pdl 16 Chnl Implanted:Qt y: 1 on 09/16/2021 by Maxi Gregg MD at [facility] Right: Spine Thoracic Advanced [employer] [id number] / / Description:CAMILO Slnt Dura Duraseal Pg Trilysine Amine 5 Implanted:Qt y: 1 on 09/16/2021 by Maxi Gregg MD at [facility] Right: Spine Thoracic Inte[employer] David [id number] / / Description:CAMILO Proclaim Plus 5 Implanted:Qt y: 1 on 02/16/2023 by Maxi Gregg MD at [facility] Left: Back Cardenas Spine [id number] 11/07/2024 3670 / [id number] / Explanted Type Area Hog Trader Device Identifier Shelf Expiration Date Model / Serial / Lot Gntr Nrstm [id number] Proclaim Elt Implanted:Qty: 1 on 09/16/2021 by Maxi Gregg MD at [facility] Explanted:Qty: 1 on 10/30/2021 by Maxi Gregg MD at [facility] Right: Spine Thoracic [employer] [...] 08/09/2024 8:46 PM CDT [facility] Specific [place] UA 1.014 1.005 - 1.030 08/09/2024 8:46 [...] 5 # /hpf 08/09/2024 8:46 PM CDT [facility] Bacteria UA Trace(A) None Seen 08/09/2024 8:46 PM CDT [facility] Squamous Epithelial Cells None Seen 0 - 5 /hpf 08/09/2024 8:46 PM CDT [facility] Mucus UA 1+ /LPF 08/09/2024 8:46 PM CDT [facility] Urine URINE SPECIMEN OBTAINED BY CLEAN CATCH PROCEDURE / Unknown 08/09/2024 8:39 PM CDT 08/09/2024 8:39 PM CDT Narrative [facility] - 08/09/2024 8:46 PM CDT Yasmin Matthew DO LAB - URINALYSIS ORDERABLES Final Result Performing Organization Address City/State/[facility] Co de Phone Number [facility] [address] [place] [address] * (ABNORMAL) CULTURE URINE (08/09/2024 8:39 PM CDT) [facility] Culture Urine 50,000-100,000 CFU/mL Escherichia coli(A) TERRANCE 08/12/2024 4:04 AM CDT [facility] Culture Urine 10,000-50,000 CFU/mL urogenital evelio TERRANCE 08/12/2024 4:04 AM CDT [facility] Urine URINE SPECIMEN OBTAINED BY CLEAN CATCH PROCEDURE / Unknown 08/09/2024 8:39 PM CDT 08/09/2024 8:39 PM CDT Narrative [facility] - 08/12/2024 4:04 AM CDT Organism [...] LAB - MICROBIOLOGY ORDERABLE S Final Result [facility] [address] [facility] [place], [place] [address], [facility] [phone] * SARS-COV-2 (COVID-19) FLU A/B RSV PCR RAPID (08/09/2024 7:40 PM CDT) [facility] COVID-19 PCR Not detected Not detected 08/10/19 8:24 PM CDT [facility] Influenza A PCR Not detected Not detected 08/09/2024 8:24 PM CDT [facility] Influenza B PCR Not detected Not detected 08/09/2024 8:24 PM CDT [facility] RSV PCR Not detected Not detected 08/09/2024 8:24 PM CDT [facility] Microbiology SPECIMEN FROM NASOPHARYNGEAL STRUCTURE / Unknown Collection / Unknown 08/09/2024 7:40 PM CDT 08/09/2024 7:40 PM CDT Narrative [facility] - 08/09/2024 8:24 PM CDT [...] ORDERABLE S Final Result Performing Organization Address [facility] Co de Phone Number [facility] [address] [place] [phone] * (ABNORMAL) STREP A SCREEN DIRECT W RFLX STREP A CULTURE (08/09/2024 7:40 PM CDT) [facility] Strep A Rapid Positive(A ) Negative 08/09/2024 7:53 PM CDT [facility] Microbiology ENTIRE THROAT (SURFACE REGION OF NECK) / Unknown Collection / Unknown 08/09/2024 7:40 PM CDT 08/09/2024 7:40 PM CDT Yasmin Vipul LAB - MICROBIOLOGY ORDERABLE S Final Result Performing Organization Address [facility] de Phone Number [facility] [address] [place] [address] * EKG 12-LEAD (08/09/2024 7:06 PM CDT) Ventricular Rate 86 BPM [facility] Atrial Rate 86 BPM [facility] P-R Interval 122 ms [facility] QRS Duration ms 86 ms [facility] Q-T Interval ms 370 ms [facility] QTC Calculation (Bezet) 442 ms [facility] Calculated R [place] 8 degrees [facility] Calculated T [place] 51 degrees [facility] Interpretation EKG NORMAL SINUS RHYTHM WITH SINUS ARRHYTHMIA SEPTAL INFARCT , AGE UNDETERMINED ABNORMAL ECG WHEN COMPARED WITH ECG OF 09-AUG-2024 13:34, SINUS RHYTHM HAS REPLACED ECTOPIC ATRIAL RHYTHM SEPTAL INFARCT IS NOW PRESENT Confirmed by Gil Perrin MD ([id number]) on 08/10/2024 9:03:52 AM [facility] 08/09/2024 7:06 PM CDT 08/10/2024 9:03 AM CDT Josué Bernal PA-C ECG ORDERABLES Edited Re sult - Final Performing Organization Address City/[facility]/ZIP Co de Phone Number [facility] * TROPONIN-I HIGH SENSITIVE REFLEX 1HOUR (08/09/2024 3:29 PM CDT) [facility] Troponin I High Sensitive 5 <=14 ng/L 08/09/2024 4:50 PM CDT [facility] Delta Troponin I HS 08/09/2024 4:50 PM CDT [facility] Comment:Delta value intentio yissel not calculated. Baseline to 1 hour specimen collection interval exceeded. Blood BLOOD SPECIMEN / Unknown Venipuncture / Unknown 08/09/2024 3:29 PM CDT 08/09/2024 3:33 PM CDT Josué Bernal PA-C LAB - CHEMISTRY ORDERABLE S Final Result Performing Organization Address [facility] Co de Phone Number [facility] [address] [place] [address] * XR CHEST 2VW (08/09/2024 1:59 PM [...] BASELINE + 1HR (08/09/2024 1:40 PM CDT) [facility] Troponin I High Sensitive 6 <=14 ng/L 08/09/2024 2:14 PM CDT [facility] Blood BLOOD SPECIMEN / Unknown Venipuncture / Unknown 08/09/2024 1:40 PM CDT 08/09/2024 1:43 PM CDT Josué Bernal PA-C LAB - CHEMISTRY ORDERABLE S Final Result [facility] [address] [place] [address] * (ABNORMAL) CBC W AUTO DIFFERENTIAL (08/09/2024 1:40 PM CDT) [facility] WBC 15.6(H) 4.0 - 10.7 x10E9/L 08/09/2024 1:47 PM CDT [facility] RBC Count 4.44 3.90 - 5.20 x10E12/L 08/09/2024 1:47 PM CDT [facility] Hemoglobin 13.0 11.9 - 15.8 g/dL 08/09/2024 1:47 PM CDT [facility] Hematocrit 40.4 34.8 - 46.1 % 08/09/2024 1:47 PM CDT [facility] MCV 91.0 80.0 - 98.0 fL 08/09/2024 1:47 PM CDT [facility] MCH 29.3 26.7 - 33.6 pg 08/09/2024 1:47 PM CDT [facility] MCHC 32.2 31.7 - 36.3 g/dL 08/09/2024 1:47 PM CDT [facility] RDW-CV 13.0 11.3 - 14.8 % 08/09/2024 1:47 PM CDT [facility] Platelet Count 249 150 - 420 x10E9/L 08/09/2024 1:47 PM CDT [facility] MPV 9.6 7.8 - 11.4 fL 08/09/2024 1:47 PM CDT [facility] Neutrophil % 72.7 41.0 - 74.0 % 08/09/2024 1:47 PM CDT [facility] Lymphocyte % 18.0 17.0 - 47.0 % 08/09/2024 1:47 PM CDT [facility] Monocyte % 7.5 3.0 - 11.0 % 08/09/2024 1:47 PM CDT [facility] Eosinophil % 1.2 0.0 - 7.0 % 08/09/2024 1:47 PM CDT [facility] Basophil % 0.2 0.0 - 1.6 % 08/09/2024 1:47 PM CDT [facility] Immature Granulocytes % 0.4 0.0 - 1.0 % 08/09/2024 1:47 PM CDT [facility] Neutrophil Absolute 11.35(H) 1.60 - 7.50 x10E9/L 08/09/2024 1:47 PM CDT [facility] Lymphocyte Absolute 2.82 1.00 - 4.40 x10E9/L 08/09/2024 1:47 PM CDT [facility] Monocyte Absolute 1.18(H) 0.15 - 1.00 x10E9/L 08/09/2024 1:47 PM CDT [facility] Eosinophil Absolute 0.19 0.00 - 0.60 x10E9/L 08/09/2024 1:47 PM CDT [facility] Basophil Absolute 0.03 0.00 - 0.13 x10E9/L 08/09/2024 1:47 PM CDT [facility] Blood BLOOD SPECIMEN / Unknown Venipuncture / Unknown 08/09/2024 1:40 PM CDT 08/09/2024 1:43 PM CDT Josué MCKEON-C LAB - HEMATOLOGY ORDERABL ES Final Result Performing Organization Address [facility] Co de Phone Number [facility] [address] [place] [phone] * B-TYPE NATRIURETIC PEPTIDE (08/09/2024 1:40 PM CDT) BNP 29 <=100 pg/mL 08/09/2024 2:11 PM CDT [facility] Blood BLOOD SPECIMEN / Unknown Venipuncture / Unknown 08/09/2024 1:40 PM CDT 08/09/2024 1:43 PM CDT Narrative [facility] - 08/09/2024 2:11 PM CDT [...] ORDERABLE S Final Result Performing Organization Address [facility] Co de Phone Number [facility] [address] [place] [address] * (ABNORMAL) COMPREHENSIVE METABOLIC PANEL (08/09/2024 1:40 PM CDT) [facility] Glucose 212(H) 70 - 99 mg/dL 08/09/2024 2:09 PM CDT [facility] Sodium 136 136 - 145 mmol/L 08/09/2024 2:09 PM CDT [facility] Potassium 3.9 3.5 - 5.1 mmol/L 08/09/2024 2:09 PM CDT [facility] Chloride 103 98 - 107 mmol/L 08/09/2024 2:09 PM CDT [facility] CO2 24 22 - 29 mmol/L 08/09/2024 2:09 PM T [facility] Calcium 9.4 8.4 - 10.4 mg/dL 08/09/2024 2:09 PM [facility] Anion Gap 9 6 - 16 mmol/L 08/09/2024 2:09 PM T [facility] BUN 19 7 - 26 mg/dL 08/09/2024 2:09 PM T [facility] Creatinine 0.82 0.57 - 1.11 mg/dL 08/09/2024 2:09 PM [facility] Alkaline Phosphatase 68 40 - 150 U/L 08/09/2024 2:09 PM CDT [facility] ALT 22 6 - 57 U/L 08/09/2024 2:09 PM T [facility] AST 23 10 - 48 U/L 08/09/2024 2:09 PM [facility] Protein Total 8.0 6.4 - 8.3 gm/dL 08/09/2024 2:09 PM T [facility] Albumin 3.3(L) 3.4 - 5.0 gm/dL 08/09/2024 2:09 PM [facility] Bilirubin Total 0.9 0.2 - 1.2 mg/dL 08/09/2024 2:09 PM [facility] eGFR by CKD-EPI 78(L) >=90 mL/min/1.7 3 m2 08/09/2024 2:09 PM [facility] Blood BLOOD SPECIMEN / Unknown Venipuncture / Unknown 08/09/2024 1:40 PM CDT 08/09/2024 1:43 PM CDT Josué MCKEON-Ana Laura LAB - CHEMISTRY ORDERABLE S Final Result Performing Organization Address [facility] de Phone Number [facility] [address] [place], [place] [phone] * (ABNORMAL) MAGNESIUM BLOOD (08/09/2024 1:40 PM CDT) Pathologist [facility] Magnesium 1.5(L) 1.6 - 2.6 mg/dL 08/09/2024 2:09 PM CDT [facility] Blood BLOOD SPECIMEN / Unknown Venipuncture / Unknown 08/09/2024 1:40 PM CDT 08/09/2024 1:43 PM CDT Josué MCKEON-C LAB - CHEMISTRY ORDERABLE S Final Result Performing Organization Address [facility] de Phone Number [facility] [address] [place] [address] * CK BLOOD (08/09/2024 1:40 PM CDT) [facility] CK 107 29 - 168 U/L 08/09/2024 7:44 PM CDT [facility] Blood BLOOD SPECIMEN / Unknown Venipuncture / Unknown 08/09/2024 1:40 PM CDT 08/09/2024 1:43 PM CDT Yasmin Matthew DO LAB - CHEMISTRY ORDERABLES F inal Result Performing Organization Address [facility] Co de Phone Number [facility] [address] [place] [phone] * HEPATITIS C AB SCREEN RFLX NAAT QUANT (02/21/2023 6:30 PM CDT) [facility] Hepatitis C Antibody Non-react hugh Non-reac tive 02/21/2023 7:32 PM CDT [facility] Comment:Hepatitis C Antibody [...] ORDERABLES Fi nal Result Performing Organization Address City/[facility]/ZIP Co de Phone Number [facility] [address] [place] [address], [place] [phone] * (ABNORMAL) HEMOGLOBIN A1C (12/25/2022 3:56 AM CDT) Hemoglobin A1c 8.6(H) <=5.6 % 12/25/2022 2:47 PM CDT [facility] Estimated Average Glucose 200 mg/dL 12/25/2022 2:47 PM CDT [facility] Comment: HbA1c Interpretation: Normal : < 5.7% Pre-diabetes: 5.7-6.4% Diabetes: Equal to or greater than 6.5% Test results diagnostic of diabetes should be repeated for confirmation. Treatment target values recommended by ADA and other clinical organizations should be used to evaluate metabolic control in patients. Reference: [place] [employer], Standards of Care in Diabetes [...] LAB - CHEMISTRY ORDERA BLES Final Result [facility] [address] [place] [address], [place] [phone] from Last 3 Months or Most Recently [...] 3:37 AM 03/23/2023 7:14 PM Care Teams Dba Manager Relationship Specialty Start Date End Date Justen Gale MD PCP - General 07/05/21
--- OUTSIDE RECORDS SUMMARY | 2024-10-06 18:30 | XMS_ITS | Clinical Summary ---
Author Organization [facility] Address [address] [place] [address] Care Team Providers Care Manager Utilization Management Name Role Phone Liu Jerez MD Unavailable [phone] Albert Corbin MD Unavailable Justen Gale MD Primary Care Provider Khris Arthur MD Unavailable [phone] Ko Melendez MD Unavailable [phone] John Paul Moyer MD Unavailable Annel Rod MD Unavailable Anali MARSHALL MD, Carlos M. 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) use 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 inhibitors 10/17/2019 Thyroid [...] complication, without long-term current use of insulin ([facility]) 10/23/2017 Assessment & Plan (10/23/2017 2:06 AM [...] 10/13/2017 Assessment & Plan (05/22/2024 12:29 PM SLIVER CHOPPER): -Hx stage II, ER positive, HER2 negative [...] 08/01/2017 Assessment & Plan (05/22/2024 12:33 PM SLIVER CHOPPER): -Hx LUL -Hospital provided CPAP ordered History of DVT (deep vein thrombosis) 08/01/2017 History of pulmonary embolism 08/01/2017 Generalized weakness 07/27/2017 Dyspnea 07/27/2017 Unintentional weight loss 07/27/2017 Acute cystitis without hematuria 07/27/2017 Nausea and vomiting 07/26/2017 Overview (07/28/2017): Added automatically from request for surgery [id number] Pulmonary embolism 08/09/2016 Assessment & Plan (10/23/2017 2:05 AM CDT): On Rivaroxaban Lymphedema of left upper extremity 08/09/2016 Assessment & Plan (05/25/2024 7:53 AM SLIVER CHOPPER): S/p L axillary lymph node dissection 2014, [...] syndrome Assessment & Plan (05/22/2024 11:18 AM SLIVER CHOPPER): -continue home Requip 5mg nightly Pain of lower extremity 03/12/2013 Overview (07/29/2016): Leg pain Essential hypertension Assessment & Plan (05/23/2024 10:42 AM SLIVER CHOPPER): -Chart history of HTN but not on meds -BP elevated on admission, likely some pain contributing -Monitor closely once pain under adequate control, discussed following up with PCP for this Chronic anticoagulation Restless leg syndrome 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 Type 2 diabetes mellitus without complication Assessment & Plan (05/24/2024 1:39 PM SLIVER CHOPPER): -Last Ha1c 8.4 in 2023, repeat 8.7 [...] drink = 0.6 oz pur e alcohol) [facility] [employer] Answer Date Recorded In the past 12 months has [employer], gas, oil, or water [employer] threatened to shut off services in your [...] you attend chur ch or judaism services? More than 4 times per year [...] on file Legal Sex Female 12:24 AM SLIVER CHOPPER Gender Identity Not on file Sexual Orientation [...] CDT HEMOGLOBIN A1C STAT 05/21/2024 4:20 PM SLIVER CHOPPER LIPID PANEL STAT 05/21/2024 4:20 PM SLIVER CHOPPER DEXA AXIAL SKELETON BONE DENSITY 1 OR [...] was last reviewed 2021. Testing performed by: [facility], [address] [place] [address]., [address] Blood 07/01/2024 2:02 PM CDT 07/01/2024 2:12 PM CDT us Ilana Stevens MD LAB BLOOD ORDERABLES F inal Result Performing Organization Address City/[facility]/ZIP Co de Phone Number [place] [id number] [facility] Department [place] [address] * (ABNORMAL) Hemoglobin A1c (05/21/2024 4:20 PM SLIVER CHOPPER) [facility] Hgb A1C 8.7(H) 4.0 - 5.6 % Estimated Average Glucose 203 mg/dL [facility] Comment: The ADA recommends reporting an estimated Average Glucose (eAG) with all Hemoglobin A1c results using the equation derived from a study of 507 normal and diabetic adults. Minority populations were underrepresented and children were not included. (Diabetes Care 2020; 43(S1): S66-S76). The eAG is not equivalent to a fasting glucose. Blood 05/21/2024 4:20 PM SLIVER CHOPPER 05/21/2024 4:55 PM SLIVER CHOPPER us Leo Henry MD LAB BLOOD ORDERABLES Final Result [facility] Department [place] [address] * (ABNORMAL) Lipid panel (05/21/2024 4:20 PM SLIVER CHOPPER) Cholesterol 205(H) 30 - 199 mg/dL Comment: [...] Triglycerides 92 <=149 mg/dL [facility] Comment: Interpretive Data Ages < or = [...] HDL 55 >=40 mg/dL [facility] Comment: Interpretive Data Ages < or = [...] LDL, calculated 134(H) <=129 mg/dL [facility] Comment: Interpretive Data Ages < or = [...] on 2023. Non-HDL Cholesterol 150 mg/dL [facility] Comment: Interpretive Data Ages < or [...] revised on 2017. Chol/HDL ratio 4 [facility] Blood 05/21/2024 4:20 PM SLIVER CHOPPER 05/21/2024 4:50 PM SLIVER CHOPPER Narrative [facility] - 05/22/2024 4:17 PM SLIVER CHOPPER Reflex us Leo Henry MD LAB BLOOD ORDERABLES Final Result [facility] Department [place] [address] * Dexa Axial Skeleton Bone Density 1 or 2 Site (08/02/2022 10:53 AM CDT) Anatomical Region Laterality Modality Body N/A Radiographic Lizeth ging Narrative 08/02/2022 3:34 PM CDT Patient Name: Karly Marques Date of : 1955 Date of scan: 08/02/2022 Bone mineral density was performed on a HoloZeaVision Discovery Densitometer. Based on machine cross-calibration and [...] by the International Society of Clinical Densitometry. [id number] us Khris Arthur MD IMG DXA PROCEDURES [...] agrees with it. ACC# Date Time Exam [id number] Aug 19, 2016 14:27:00 [facility] [id number] D[employer]Conjecta Mamm, inc CAD, unilat L Technologist(s): Carla Harris; ; [id number] Aug 19, 2016 15:39:00 [facility] [id number] Breast US unilateral, ltd L ACC# Date Time Exam [id number] Aug 19, 2016 14:27:00 [facility] [id number] [employer] Mamm, inc CAD, unilat L Technologist(s): Carla Harris; ; [id number] Aug 19, 2016 15:39:00 [facility] [id number] Breast US unilateral, ltd L EXAMINATION: LEFT [...] SARABIA M.D. on Aug 19 2016 4:20P [id number] Procedure Note Miscellaneous, Not In File / Provider, MD Tyler - 09/17/2016 Avery DOYLE M.D. FINAL REPORT The radiology attending physician has personally reviewed this study, and has reviewed and/or edited this written report and agrees with it. ACC# Date Time Exam [id number] Aug 19, 2016 14:27:00 [facility] [id number] Diag Mamm, inc CAD, unilat L Technologist(s): Carla Harris; ; [id number] Aug 19, 2016 15:39:00 [facility] [id number] Breast US unilateral, ltd L ACC# Date Time Exam [id number] Aug 19, 2016 14:27:00 [facility] [id number] Diag Mamm, inc CAD, unilat L Technologist(s): Carla Harris; ; [id number] Aug 19, 2016 15:39:00 [facility] [id number] Breast US unilateral, ltd L EXAMINATION: LEFT [...] By: Khris Arthur MD, MPH Dictated By: JDUY RINCON M.D. on Aug 19 2016 3:50P This document has been electronically signed by: ANTHONY SARABIA M.D. on Aug 19 2016 4:20P [id number] us Not In File Miscellaneous IMG MAMMO PROCEDURES F inal Result from Last 3 Months or Most Recently Relevant to Health Maintenance Insurance IDPA UHC MEDICARE ADVANTAGE UHC MEDICARE ADVANTAGE UHC MEDICARE ADVANTAGE Advance Directives For more information, please contact: [phone] Documents on File Type Date Recorded Patient Yarn Conditioner Expl anation ADVANCE DIRECTIVE 12/23/2021 2:49 PM Power of Topography Technician-Medical ADVANCE DIRECTIVE 12/23/2021 2:49 PM Living Will [...] Agents on File Name Relationship Healthcare Agent [facility]placed By [facility] Communication Yunior Marques Daughter Health Care Agent Jimmie Marques Spouse First Alternate Health Care Agent Care Teams Manager Utilization Management Relationship Specialty Start Date End Date Justen Gale MD 2 [facility] [address] [place] [address] PCP - General 10/09/17 Liu Jerez MD Consulting Physician Gastroenterology 07/28/17 [place] [address] [facility] [address] [place] [address] Consulting Physician Pulmonary Disease 08/03/17 [place] [address] [place] [address] [address] [place] [address] Medical Oncologist/Waiter/Waitress Bar Medical Oncology 10/23/17 [place] [address] [facility] [address] [place] [address] Surgeon Orthopedic Surgery 10/23/17 [place] [address] [address] Consulting Physician Pain Management 10/23/17 [place] [address] [address] Referring Physician General Surgery 01/26/18 [place] [address] [facility] [address] [place] [address] Consulting Physician Neurology 01/26/18
--- OUTSIDE RECORDS SUMMARY | 2024-10-06 18:30 | XMS_ITS | Patient Health Record ---
Author Organization [facility] Address [address] [facility] [address] [facility] [address] [place] [address] Care Team Providers Care Laboratory Associate Name Role Phone Yo DURÁN, Lavonne Primary Care Provider Unavail able Reason For Referral No Information Plan Of Treatment No Information Insurance Providers Payer Name Payer Address Payer Phone Subscriber Number Group Number Insured Name Patient Relationship to Insured Coverage Start Date Coverage End Date [facility] [employer] [address] [address] [place], [place] [id number] Karly Marques Self - patient is the insured
--- OUTSIDE RECORDS SUMMARY | 2024-10-06 18:30 | XMS_ITS ---
Author Organization [facility] Address [address] [place] [address] Care Team Providers Care Jack Winder Name Role Phone Liu Jerez MD Unavailable [phone] Albert Corbin MD Unavailable [phone] Justen Gale MD Primary Care Provider Khris Arthur MD Unavailable [phone] Ko Melendez MD Unavailable [phone] John Paul Moyer MD Unavailable Annel Rod MD Unavailable Anali MARSHALL MD, Carlos M. Unavailable Active Problems Problem Noted Date Diagnosed Date Urinary tract infection 05/22/2024 Assessment & Plan (05/26/2024 10:08 AM BOOKMAKER'S CLERK): Presenting with urinary symptoms of right flank [...] 05/22/2024 Assessment & Plan (05/25/2024 7:52 AM BOOKMAKER'S CLERK): Hx of breast cancer c/b DVT/bilateral Pes [...] 05/22/2024 Assessment & Plan (05/22/2024 1:14 PM BOOKMAKER'S CLERK): -long-standing chronic back pain -CT L spine [...] complication, without long-term current use of insulin ([facility]) 10/23/2017 Assessment & [...] 10/13/2017 Assessment & Plan (05/22/2024 12:29 PM BOOKMAKER'S CLERK): -Hx stage II, ER positive, HER2 negative [...] 08/01/2017 Assessment & Plan (05/22/2024 12:33 PM BOOKMAKER'S CLERK): -Hx LUL -Hospital provided CPAP ordered History of DVT (deep vein thrombosis) 08/01/2017 History of pulmonary embolism 08/01/2017 Generalized weakness 07/27/2017 Dyspnea 07/27/2017 Unintentional weight loss 07/27/2017 Acute cystitis without hematuria 07/27/2017 Nausea and vomiting 07/26/2017 Overview (07/28/2017): Added automatically from request for surgery [id number] Pulmonary embolism 08/09/2016 Assessment & Plan (10/23/2017 2:05 AM CDT): On Rivaroxaban Lymphedema of left upper extremity 08/09/2016 Assessment & Plan (05/25/2024 7:53 AM BOOKMAKER'S CLERK): S/p L axillary lymph node dissection 2014, [...] syndrome Assessment & Plan (05/22/2024 11:18 AM BOOKMAKER'S CLERK): -continue home Requip 5mg nightly Pain of lower extremity 03/12/2013 Overview (07/29/2016): Leg pain Essential hypertension Assessment & Plan (05/23/2024 10:42 AM BOOKMAKER'S CLERK): -Chart history of HTN but not on meds -BP elevated on admission, likely some pain contributing -Monitor closely once pain under adequate control, discussed following up with PCP for this Chronic anticoagulation Restless leg syndrome 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
--- OUTSIDE RECORDS SUMMARY | 2024-10-06 18:30 | XMS_ITS | Referral Summary ---
Author Organization [facility] Address [address] [place] [address] Care Team Providers Care Brazing Machine Setter Name Role Phone Liu Jerez MD Unavailable [phone] Albert Corbin MD Unavailable [phone] Justen Gale MD Primary Care Provider Khris Arthur MD Unavailable [phone] Ko Melendez MD Unavailable John Paul Moyer [...] 05/22/2024 Assessment & Plan (05/26/2024 10:08 AM DRAFTER ASSISTANT): Presenting with urinary symptoms of right flank [...] 05/22/2024 Assessment & Plan (05/25/2024 7:52 AM DRAFTER ASSISTANT): Hx of breast cancer c/b DVT/bilateral Pes [...] 05/22/2024 Assessment & Plan (05/22/2024 1:14 PM DRAFTER ASSISTANT): -long-standing chronic back pain -CT L spine [...] 09/12/2021 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) 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 [...] without long-term current use of insulin ([facility]) 10/23/2017 Assessment & Plan (10/23/2017 [...] 10/13/2017 Assessment & Plan (05/22/2024 12:29 PM DRAFTER ASSISTANT): -Hx stage II, ER positive, HER2 negative [...] 08/01/2017 Assessment & Plan (05/22/2024 12:33 PM DRAFTER ASSISTANT): -Hx LUL -Hospital provided CPAP ordered History of DVT (deep vein thrombosis) 08/01/2017 History of pulmonary embolism 08/01/2017 Generalized weakness 07/27/2017 Dyspnea 07/27/2017 Unintentional weight loss 07/27/2017 Acute cystitis without hematuria 07/27/2017 Nausea and vomiting 07/26/2017 Overview (07/28/2017): Added automatically from request for surgery [id number] Pulmonary embolism 08/09/2016 Assessment & Plan (10/23/2017 2:05 AM CDT): On Rivaroxaban Lymphedema of left upper extremity 08/09/2016 Assessment & Plan (05/25/2024 7:53 AM DRAFTER ASSISTANT): S/p L axillary lymph node dissection 2014, [...] syndrome Assessment & Plan (05/22/2024 11:18 AM DRAFTER ASSISTANT): -continue home Requip 5mg nightly Pain of lower extremity 03/12/2013 Overview (07/29/2016): Leg pain Essential hypertension Assessment & Plan (05/23/2024 10:42 AM DRAFTER ASSISTANT): -Chart history of HTN but not on meds -BP elevated on admission, likely some pain contributing -Monitor closely once pain under adequate control, discussed following up with PCP for this Chronic anticoagulation Restless leg syndrome 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 More than 4 times per year [...] health care facility (including now)? No 08/15/2023 Housing Stability Vital Sign Answer [place] e Recorded In the last 12 months, was t here a time when you were not able to pay the mortgage or rent on time? No 05/24/2024 In the past 12 months, how m any times have you moved where you were living? 0 05/24/2024 At any time in the past 12 m [facility], were you homeless or living in a [place] care facility (including now)? No 05/24/2024 Personal Safety Answer Date Recorded Have you ever been in or are you currently in a harmful physical or emotional relationship or is someone making you feel afraid or unsafe? Denies 07/01/2024 Comments No Sex and Gender Information Value Date Recorded Sex Assigned at Not on file Legal Sex Female 12:24 AM DRAFTER ASSISTANT Gender Identity Not on file Sexual [...] CDT HEMOGLOBIN A1C STAT 05/21/2024 4:20 PM DRAFTER ASSISTANT LIPID PANEL STAT 05/21/2024 4:20 PM DRAFTER ASSISTANT DEXA AXIAL SKELETON BONE DENSITY 1 OR [...] was last reviewed 2021. Testing performed by: [facility], [address] [place] [address]., [address] Blood 07/01/2024 2:02 PM CDT 07/01/2024 2:12 PM CDT us Ilana Stevens MD LAB BLOOD ORDERABLES F inal Result [facility] [address] [facility] [place] [address] * (ABNORMAL) Hemoglobin A1c (05/21/2024 4:20 PM DRAFTER ASSISTANT) Hgb A1C 8.7(H) 4.0 - 5.6 % Estimated Average Glucose 203 mg/dL [facility] Comment: The ADA recommends reporting an estimated Average Glucose (eAG) with all Hemoglobin A1c results using the equation derived from a study of 507 normal and diabetic adults. Minority populations were underrepresented and children were not included. (Diabetes Care 2020; 43(S1): S66-S76). The eAG is not equivalent to a fasting glucose. Blood 05/21/2024 4:20 PM DRAFTER ASSISTANT 05/21/2024 4:55 PM DRAFTER ASSISTANT us Leo Henry MD LAB BLOOD ORDERABLES Final Result [facility] Department [place] [address] * (ABNORMAL) Lipid panel (05/21/2024 4:20 PM DRAFTER ASSISTANT) Cholesterol 205(H) 30 - 199 mg/dL Comment: [...] revised on 2017. Triglycerides 92 <=149 mg/dL [facility] Comment: Interpretive Data Ages [...] 2017. HDL 55 >=40 mg/dL [facility] Comment: Interpretive Data Ages < [...] LDL, calculated 134(H) <=129 mg/dL [facility] Comment: Interpretive Data Ages < [...] 2023. Non-HDL Cholesterol 150 mg/dL [facility] Comment: Interpretive Data Ages < [...] 4 [facility] Blood 05/21/2024 4:20 PM DRAFTER ASSISTANT 05/21/2024 4:50 PM DRAFTER ASSISTANT Narrative [facility] - 05/22/2024 4:17 PM DRAFTER ASSISTANT Reflex us Leo Henry MD LAB BLOOD ORDERABLES Final Result [facility] Department [place] [address] * Dexa Axial Skeleton Bone Density 1 or 2 Site (08/02/2022 10:53 AM CDT) Anatomical Region Laterality Modality Body N/A Radiographic Lizeth ging Narrative 08/02/2022 3:34 PM CDT Patient Name: Karly Marques Date of : 1955 Date of scan: 08/02/2022 Bone mineral density was performed on a HoloDigital Message Display Discovery Densitometer. Based on machine cross-calibration and [...] by the International Society of Clinical Densitometry. [id number] Khris Arthur MD [facility] DXA PROCEDURES F inal Result * COLONOSCOPY [...] this written report and agrees with it. [facility]# Date Time Exam [id number] Aug 19, 2016 14:27:00 [facility] [address] Diag Mamm, inc CAD, unilat L Technologist(s): Carla Harris; ; [id number] Aug 19, 2016 15:39:00 [facility] [address] Breast US unilateral, ltd L ACC# Date Time Exam [id number] Aug 19, 2016 14:27:00 [facility] [address] Diag Mamm, inc CAD, unilat L Technologist(s): Carla Harris; ; [id number] Aug 19, 2016 15:39:00 [facility] [address] Breast US unilateral, ltd L EXAMINATION: LEFT [...] SARABIA M.D. on Aug 19 2016 4:20P [id number] Procedure Note Miscellaneous, Not In File / Provider, Historical, MD - 09/17/2016 ANTHONY SARABIA M.D. JUDY RINCON M.D. FINAL REPORT The radiology attending physician has personally reviewed this study, and has reviewed and/or edited this written report and agrees with it. ACC# Date Time Exam [id number] Aug 19, 2016 14:27:00 [facility] [address] Diag Mamm, inc CAD, unilat L Technologist(s): Carla Harris; ; [id number] Aug 19, 2016 15:39:00 [facility] [address] Breast US unilateral, ltd L ACC# Date Time Exam [id number] Aug 19, 2016 14:27:00 [facility] [address] Diag Mamm, inc CAD, unilat L Technologist(s): Carla Harris; ; [id number] Aug 19, 2016 15:39:00 C [id number] Breast US unilateral, ltd L EXAMINATION: LEFT [...] SARABIA M.D. on Aug 19 2016 4:20P [id number] us Not In File Miscellaneous IMG MAMMO PROCEDURES F inal Result from Last 3 Months or Most Recently Relevant to Health Maintenance Insurance [facility] MEDICARE ADVANTAGE [facility] MEDICARE ADVANTAGE [facility] MEDICARE Address: [address] [address] [place] [address] UHC MEDICARE ADVANTAGE Advance Directives For more information, please contact: [phone] Documents on File Type Date Recorded Patient Miniature Set Constructor Expl anation ADVANCE DIRECTIVE 12/23/2021 2:49 PM Power of Installation Manager-Medical ADVANCE DIRECTIVE 12/23/2021 2:49 PM Living [...] First Alternate Health Care Agent Care Teams Brazing Machine Setter Relationship Specialty Start Date End Date Justen Gale MD 2 [facility] [address] [place] [address] PCP - General 10/09/17 Liu Jerez MD Consulting Physician Gastroenterology 07/28/17 [place] [address] [facility] [address] [place] [address] Consulting Physician Pulmonary Disease 08/03/17 Khris Arthur MD [address] [facility] [address] [place] [address] Medical Oncologist/Sustainability Project Coordinator Medical Oncology 10/23/17 [place] [address] [facility] [address] [place] [address] Surgeon Orthopedic Surgery 10/23/17 [place] [address] [facility] [address] [place] [address] Consulting Physician Pain Management 10/23/17 [place] [address] [facility] [address] [place] [address] Referring Physician General Surgery 01/26/18 [place] [address] [facility] [address] [place] [address] Consulting Physician Neurology 01/26/18
--- OUTSIDE RECORDS SUMMARY | 2024-10-06 18:30 | XMS_ITS | Encounter Summary ---
Author Organization [facility] Address [address] [place] [address] Phone Care Team Providers Care Welding Manager Name Role Phone Justen Gale MD Primary Care Provider David Roberts APRN, OPTO MECHANICAL ENGINEER Unavailable Annel Rod MD Unavailable Reason for Visit * Reason Comments Medication Refill Encounter Details Date Type Department Care Team (Late st Contact Info) Description 02/07/2020 Refill [facility] Call Center [address] [place] [address] Justen Gale MD #[address] [address] Medication Refill Social History Tobacco Use Types [...] Visit [facility] - [place] #2 [place] [address] Annel Rod MD #[address] [address] 11/13/2024 2:00 PM CDT [facility] [address] [place] [address] Angelito Alegria APRN, OPTO MECHANICAL ENGINEER #[address] [facility] [address] [place] [address] Discharge Disposition: Discharged to home or Selfcare documented as of this encounter Visit Diagnoses Not on filedocumented in this encounter Additional Health Concerns Infection Onset Date Last Indicated Resolved Time COVID - 19 08/01/2024 08/01/2024 08/01/2024 3:20 PM CDT Assessment Noted Time PHQ-9 Depression Total Score: 0 09/08/19 1:00 PM CDT documented as of this encounter Care Teams Welding Manager Relationship Specialty Start Date End Date Justen Gale MD #[address] [address] PCP - General Family Medicine 10/17/17 David Roberts APRN, NETTA #2 [facility] [place] [address] Nurse Practitioner Advanced Practice Nurse 01/31/22 Annel Rod MD #[address] [address] Consulting Physician Endocrinology 07/01/22 documented as of this encounter
--- OUTSIDE RECORDS SUMMARY | 2024-10-06 18:30 | XMS_ITS | Clinical Summary ---
Author Organization [facility] Address [address] [place] [address] Phone Care Team Providers Care Multiple Pressure Riveter Operator Name Role Phone Justen Gale MD Primary Care Provider [phone] Allergies Active Allergy Reactions Criticality Noted Date [...] - 6.0 % 09/29/2017 10:28 AM CDT [email or web address] [facility] EST. AVG GLUCOSE, A1C 186 mg/dL 09/29/2017 10:28 AM CDT Craft Dragon [employer] [facility] Blood Venipuncture / Unknown 09/28/2017 8:41 PM CDT 09/28/2017 8:46 PM CDT Narrative [facility] LABORATORY [facility] - 09/29/2017 10:28 AM CDT HGB A1C INTERPRETATION NORMAL: <5.7% PRE-DIABETES: 5.7 - 6.4% DIABETES: 6.5% OR GREATER us Francisco Castaneda MD CHEMISTRY ORDERABLES Final Resul t [facility] Meine [employer] [facility]# [id number] [address] [facility] [place] [address] * (ABNORMAL) LIPID PANEL (09/28/2017 8:41 PM CDT) CHOLESTEROL 174 <200 mg/dL 09/30/2017 2:45 AM CDT [facility] [employer] [facility] TRIGLYCERIDE 109 <150 mg/dL 09/30/2017 2:45 AM CDT [facility] [employer] [facility] HDL 45 40 - 59 mg/dL 09/30/2017 2:45 AM CDT [facility] [employer] [facility] LDL CALCULATED 107(H) <100 mg/dL 09/30/2017 2:45 AM CDT [facility] [employer] [facility] NON-HDL CHOLESTEROL 129 <130 mg/dL 09/30/2017 2:45 AM CDT [facility] Me[employer] [facility] Blood Venipuncture / Unknown 09/28/2017 8:41 PM CDT 09/28/2017 8:46 PM CDT Narrative [facility] - 09/30/2017 2:45 AM CDT [...] Resul t [facility] Meine [employer] [facility] [id number] [address] [facility] [place] [address] from Last 3 Months or Most Recently Relevant to [place] [address] Advance Directives For more information, please contact: [phone] * Full Code (Latest Code Status on File) Date Activated Date Inactivated Comments 09/29/2017 7:45 AM 09/30/2017 9:14 PM * Full Code Date Activated Date Inactivated Comments 09/29/2017 1:25 AM 09/29/2017 7:45 AM Care Teams Multiple Pressure Riveter Operator Relationship Specialty Start Date End Date Justen Gale MD [address] [facility] [address] [place] [address] PCP - General Cardiovascular Disease 09/14/17
--- OUTSIDE RECORDS SUMMARY | 2024-10-06 18:30 | XMS_ITS | Encounter Summary ---
Author Organization [facility] Address [address] [place] [address] Phone Care Team Providers Care Printing Agent Name Role Phone Justen Gale MD Primary Care Provider [phone] David Roberts APRN, WRIST HEMMER Unavailable Annel Rod MD Unavailable Reason for Visit * Reason Comments Medication Refill Encounter Details Date Type Department Care Team (Late st Contact Info) Description 07/12/2022 Refill [facility] #2 [place] [address] Justen Gale MD #[address] [address] Medication Refill Social History Tobacco Use Types [...] Office Visit Pili Elkins APRN, NETTA [facility] [place] 05/02/22 Office Visit Justen Gale MD [facility] 03/03/22 Office Visit Pili Elkins APRN, WRIST HEMMER [facility] 01/03/22 Office Visit Dannielle Berg PAC [facility] [place] 12/07/21 Office Visit Pili Elkins APRN, NETTA [facility] 11/09/21 Office Visit Pili Elkins APRN, NETTA [facility] [place] 10/08/21 Office Visit Angelito Alegria APRN, NETTA [facility] [place] 08/30/21 [facility] Visit [facility] Show[facility] recent visits within past 365 [...] Group - Endocrinology [facility] #2 [place] [address] Annel Rod MD #[address] [address] 11/13/2024 2:00 PM CDT [facility] 1 [place] [address] Angelito Alegria APRN, WRIST HEMMER #[address] [address] Discharge Disposition: Discharged to home or Selfcare documented as of this encounter Visit Diagnoses Not on filedocumented in this encounter Additional Health Concerns Infection Onset Date Last Indicated Resolved Time COVID - 19 08/01/2024 08/01/2024 08/01/2024 3:20 PM CDT Assessment Noted Time PHQ-9 Depression Total Score: 0 07/21/19 3:00 PM CDT documented as of this encounter Care Teams Printing Agent Relationship Specialty Start Date End Date Justen Gale MD #[address] [address] PCP - General Family Medicine 10/17/17 David Roberts APRN, WRIST HEMMER #2 [place] [address] Nurse Practitioner Advanced Practice Nurse 01/31/22 Annel Rod MD #[address] [address] Consulting Physician Endocrinology 07/01/22 documented as of this encounter
--- OUTSIDE RECORDS SUMMARY | 2024-10-06 18:30 | XMS_ITS ---
Author Organization [facility] Address [address] [facility] [place] [address] Care Team Providers Care Visual Communications Instructor Name Role Phone Justen Gale MD Primary Care Provider [phone] Active Problems Problem Noted Date Diagnosed Date [...]
--- OUTSIDE RECORDS SUMMARY | 2024-10-06 18:30 | XMS_ITS | Encounter Summary ---
Author Organization [facility] Address [address] [place] [address] Phone Care Team Providers Care Environmental Quality Analyst Name Role Phone Justen Gale MD Primary Care Provider David Roberts APRN, BREAKFAST HOSTESS Unavailable [phone] Annel Rod MD Unavailable Reason for Visit * Reason Comments Medication Refill Encounter Details Date Type Department Care Team (Late st Contact Info) Description 07/14/2022 Refill [facility] #2 [place] [address] Justen Gale MD #[address] [address] Medication Refill Social History Tobacco Use Types [...] [facility] - Endocrinology - [place] #2 [place] [address] Annel Rod MD #2 [facility] [address] [place] [address] 11/13/2024 2:00 PM CDT [facility] 1 [place] [address] Angelito Alegria APRN, BREAKFAST HOSTESS #2 [facility] [address] [place] [address] Discharge Disposition: Discharged to home or Selfcare documented as of this encounter Visit Diagnoses Not on filedocumented in this encounter Additional Health Concerns Infection Onset Date Last Indicated Resolved Time COVID - 19 08/01/2024 08/01/2024 08/01/2024 3:20 PM CDT Assessment Noted Time PHQ-9 Depression Total Score: 0 07/21/19 21 3:00 PM CDT documented as of this encounter Care Teams Environmental Quality Analyst Relationship Specialty Start Date End Date Justen Gale MD #2 [facility] [address] [place] [address] PCP - General Family Medicine 10/17/17 David Roberts, BUSINESS TECHNOLOGY ARCHITECT, BREAKFAST HOSTESS #2 [place] [address] Nurse Practitioner Advanced Practice Nurse 01/31/22 Annel Rod MD #2 [facility] [address] [place] [address] Consulting Physician Endocrinology 07/01/22 documented as of this encounter
--- OUTSIDE RECORDS SUMMARY | 2024-10-06 18:30 | XMS_ITS | Encounter Summary ---
Author Organization [facility] Address [address] [place] [address] Phone Care Team Providers Care Pairing Machine Operator Name Role Phone Justen Gale MD Primary Care Provider David Roberts APRN, LEAD TINNER Unavailable [phone] Annel Rod MD Unavailable Encounter Details Date Type Department Care Team (Late st Contact Info) Description 06/05/2020 [facility] 1 [place] [address] Pili Elkins APRN, LEAD TINNER #[address] [address] Frequency of micturition Social History [...] COVID-19? No / Unsure 2020 11:37 AM SPEECH THERAPIST TECHNICIAN documented as of this encounter Plan of Treatment Upcoming Encounters Date Type Department Care Team (Late st Contact Info) Description 10/22/2024 11:15 AM CDT Office Visit [facility]ology - [place] #2 [place] [address] Annel Rod MD #2 [facility] [address] [place] [address] 11/13/2024 2:00 PM CDT [facility] 1 [place] [address] Angelito Alegria, ZAMZAM, LEAD TINNER #2 [facility] [address] [place] [address] Discharge Disposition: Discharged to home or Selfcare documented as of this encounter Procedures Procedure Name Priority Date/Time Associated Diagnosis Comments URINALYSIS REFLEX IF INDICATED BY ABNORMAL RESULTS Routine 06/05/2020 4:45 PM SPEECH THERAPIST TECHNICIAN Frequency of micturition documented in this encounter Results * (ABNORMAL) URINALYSIS REFLEX IF INDICATED BY ABNORMAL RESULTS (06/05/2020 4:45 PM SPEECH THERAPIST TECHNICIAN) SPECIFIC GRAVITY 1.020 1.003 - 1.030 06/05/2020 5:19 PM SPEECH THERAPIST TECHNICIAN [facility] URINE PH 5.0 5.0 - 9.0 06/05/2020 5:19 PM SPEECH THERAPIST TECHNICIAN [facility] WBC ESTERASE Negative Negative 06/05/2020 5:19 PM SPEECH THERAPIST TECHNICIAN [facility] NITRITE Negative Negative 06/05/2020 5:19 PM SPEECH THERAPIST TECHNICIAN [facility] PROTEIN, RANDOM URINE Negative Negative 06/05/2020 5:19 PM SPEECH THERAPIST TECHNICIAN [facility] URINE GLUCOSE, QUAL Negative Negative 06/05/2020 5:19 PM SPEECH THERAPIST TECHNICIAN [facility] URINE KETONES Negative Negative 06/05/2020 5:19 PM SPEECH THERAPIST TECHNICIAN [facility] UROBILINOGEN Normal Normal mg/dL 06/05/2020 5:19 PM SPEECH THERAPIST TECHNICIAN [facility] URINE BILIRUBIN Negative Negative 5:19 PM SPEECH THERAPIST TECHNICIAN [facility] URINE BLOOD 25 /uL(A) Negative leandro/ul 06/05/2020 5:19 PM SPEECH THERAPIST TECHNICIAN [facility] URINALYSIS COLOR Yellow 06/05/19 5:19 PM SPEECH THERAPIST TECHNICIAN [facility] URINALYSIS CLARITY Clear 06/05/2020 5:19 PM SPEECH THERAPIST TECHNICIAN [facility] WBC (Urine) 0-5 Negative, 0-5 /hpf 06/05/2020 5:19 PM SPEECH THERAPIST TECHNICIAN [facility] URINE RBC'S 3-5(A) Negative, 0-2 /hpf 06/05/2020 5:19 PM SPEECH THERAPIST TECHNICIAN [facility] EPITHELIAL CELLS Small amount /lpf 2020 5:19 PM SPEECH THERAPIST TECHNICIAN [facility] BACTERIA, URINE Few(A) Negative /hpf 06/05/2020 5:19 PM SPEECH THERAPIST TECHNICIAN [facility] Urine URINE SPECIMEN / Unknown Non-Phlebotomy Collection / Unknown 06/05/2020 4:45 PM SPEECH THERAPIST TECHNICIAN 06/05/2020 5:00 PM SPEECH THERAPIST TECHNICIAN us Pili Elkins FAMILY SERVICE ASSISTANT, LEAD TINNER URINE ORDERABLES Fin al Result [facility] #1 [place] [address] documented in this encounter Visit Diagnoses Diagnosis Frequency of micturition Urinary frequency documented in this encounter Additional Health Concerns Infection Onset Date Last Indicated Resolved Time COVID - 19 08/01/2024 08/01/2024 08/01/2024 3:20 PM CDT Assessment Noted Time PHQ-9 Depression Total Score: 0 09/08/19 19 1:00 PM CDT documented as of this encounter Care Teams Pairing Machine Operator Relationship Specialty Start Date End Date Justen Gale MD #2 [facility] [address] [place] [address] PCP - General Family Medicine 10/17/17 David Roberts, FAMILY SERVICE ASSISTANT, LEAD TINNER #2 [place] [address] Nurse Practitioner Advanced Practice Nurse 01/31/22 Annel Rod MD #2 [facility] [address] [place] [address] Consulting Physician Endocrinology 07/01/22 documented as of this encounter
--- OUTSIDE RECORDS SUMMARY | 2024-10-06 18:30 | XMS_ITS | Encounter Summary ---
Author Organization [facility] Address [address] [place] [address] Phone Care Team Providers Care Real Estate Agency Principal Name Role Phone Justen Gale MD Primary Care Provider [phone] David Roberts APRN, BOOM MASTER Unavailable Annel Rod MD Unavailable Reason for Visit * Reason Onset Date Comments Medication Refill 08/06/2020 Encounter Details Date Type Department Care Team (Late st Contact Info) Description 08/06/2020 Refill [facility] Family [facility] #2 [facility] [place] [address] Justen Gale MD #[address] [address] Medication Refill Social History Tobacco Use Types [...] Outpatient Visits 2 weeks ago [facility] Pili Mueller APN, BOOM MASTER 2 months ago Increased urinary frequency [facility] Pili Mueller APN, BOOM MASTER 5 months ago Urinary frequency [facility] Pili Mueller APN, BOOM MASTER 8 months ago Type 2 diabetes mellitus with diabetic polyneuropathy, with long- term current use of insulin (HCC) [facility] Pili Mueller APN, BOOM MASTER 9 months ago Nausea [facility] Justen Urbano MD Upcoming Appointments Future Appointments In 6 days Pili Elkins APN, BOOM MASTER [facility] MANAGER NEONATAL - Recent and Past Visits Recent Visits Date Type Provider Dept 07/20/20 Office Visit Pili Elkins APN, BOOM MASTER [facility] [place] 06/05/20 Office Visit Pili Elkins APN, NETTA [facility] [place] 02/17/20 Office Visit Pili Elkins APN, NETTA [facility] [place] 12/03/19 Office Visit Pili Elkins APN, NETTA [facility] [place] 11/05/19 Telemedicine Justen Gale MD [facility] 07/25/19 Telemedicine [facility] MD [facility] recent visits within past 460 days with a meds authorizing provider and meeting all other requirements Future Appointments Date Type Provider Dept 08/12/20 Appointment Pili Elkins APN, CNP [facility] [place] Showing future appointments within next 90 days [facility] [place] #2 [place] [address] Annel Rod MD #[address] [address] 11/13/2024 2:00 PM CDT Appointment [facility] Cardiology Services 1 [place] [address] Angelito Alegria BURRING WHEEL OPERATOR, BOOM MASTER #2 [facility] [address] [place] [address] Discharge Disposition: Discharged to home or Selfcare documented as of this encounter Visit Diagnoses Not on filedocumented in this encounter Additional Health Concerns Infection Onset Date Last Indicated Resolved Time COVID - 19 08/01/2024 08/01/2024 08/01/2024 3:20 PM CDT Assessment Noted Time PHQ-9 Depression Total Score: 0 07/21/19 3:00 PM CDT documented as of this encounter Care Teams Real Estate Agency Principal Relationship Specialty Start Date End Date Justen Gale MD #[address] [address] PCP - General Family Medicine 10/17/17 David Roberts APRN, BOOM MASTER #2 [place] [address] Nurse Practitioner Advanced Practice Nurse 01/31/22 Annel Rod MD #[address] [address] Consulting Physician Endocrinology 07/01/22 documented as of this encounter
--- OUTSIDE RECORDS SUMMARY | 2024-10-06 18:30 | XMS_ITS | Encounter Summary ---
Author Organization [facility] Address [address] [place] [address] Phone Care Team Providers Care Abalone Sheller Name Role Phone Justen Gale MD Primary Care Provider [phone] David Roberts APRN, ELEMENTARY READING TUTOR Unavailable Annel Rod MD Unavailable Reason for Visit * Reason Comments Medication Refill Encounter Details Date Type Department Care Team (Late st Contact Info) Description 10/24/2022 Refill [facility] Family [facility] #2 [place] [address] Pili Elkins APRN, ELEMENTARY READING TUTOR #[address] [address] Medication Refill Social History Tobacco [...] [facility] #2 [place] [address] Annel Rod MD #[address] [address] 11/13/2024 2:00 PM CDT [facility] 1 [place] [address] Angelito Alegria, CENTER ADMINISTRATOR, ELEMENTARY READING TUTOR #2 [facility] [address] [place] [address] Discharge Disposition: Discharged to home or Selfcare documented as of this encounter Visit Diagnoses Diagnosis Essential hypertension Unspecified essential hypertension documented in this encounter Additional Health Concerns Infection Onset Date Last Indicated Resolved Time COVID - 19 08/01/2024 08/01/2024 08/01/2024 3:20 PM CDT Assessment Noted Time PHQ-9 Depression Total Score: 0 09/17/19 11:00 AM CDT documented as of this encounter Care Teams Abalone Sheller Relationship Specialty Start Date End Date Justen Gale MD #[address] [address] PCP - General Family Medicine 10/17/17 David Roberts CENTER ADMINISTRATOR, ELEMENTARY READING TUTOR #2 [place] [address] Nurse Practitioner Advanced Practice Nurse 01/31/22 Annel Rod MD #[address] [address] Consulting Physician Endocrinology 07/01/22 documented as of this encounter
--- OUTSIDE RECORDS SUMMARY | 2024-10-06 18:30 | XMS_ITS | Encounter Summary ---
Author Organization [facility] Address [address] [place] [address] Phone Care Team Providers Care Varnish Finisher Name Role Phone Lavonne Hathaway MD Primary Care Provider [phone] Liu Jerez MD Unavailable [phone] Albert Corbin MD Unavailable [phone] Justen Gale MD Primary Care Provider [phone] Lavonne Hathaway MD Primary Care Provider + [phone] Justen Gale MD Primary Care Provider [phone] Khris Arthur MD Unavailable + [phone] Ko Melendez MD Unavailable [phone] John Paul Moyer MD Unavailable [phone] Annel Rod MD Unavailable Anali MARSHALL MD, Carlos M. Unavailable [phone] Encounter Details Date Type Department Care Team ([facility] Contact Info) Description 05/15/2017 Orders Only [facility] Scanning, Provider Social History Tobacco Use Types Packs/Day Years Used Date Smoking Tobacco: Former Alcohol Use Standard Drinks/Week Comments No 0 (1 standard drink = 0.6 oz pur e alcohol) Comments Unknown Sex and Gender Information Value Date Recorded Sex Assigned at Not on file Legal Sex Female 12:24 AM SPECIAL EDUCATION PARAPROFESSIONAL Gender Identity Not on file Sexual Orientation [...] Recovered 02/10/2022 02/10/2022 06/10/2022 3:05 AM SPECIAL EDUCATION PARAPROFESSIONAL Exposure, COVID-19 Comment:Added automatically based on COVID19 lab answers indicating exposure risk 02/11/2022 02/11/2022 02/15/2022 9:06 AM C DT COVID: Suspected 05/14/2022 05/14/2022 05/14/2022 10:41 AM SPECIAL EDUCATION PARAPROFESSIONAL COVID: Suspected 06/07/2022 06/07/2022 06/07/2022 12:28 PM SPECIAL EDUCATION PARAPROFESSIONAL COVID: Suspected 06/21/2022 06/21/2022 06/21/2022 2:12 AM SPECIAL EDUCATION PARAPROFESSIONAL COVID: Suspected 10/05/2022 10/05/2022 10/05/2022 7:40 PM CDT COVID: Suspected 01/04/2024 01/04/2024 01/04/2024 10:30 PM CDT COVID: Suspected 02/14/2024 02/14/2024 02/15/2024 12:36 AM CDT COVID: Suspected 07/01/2024 07/01/2024 07/01/2024 2:53 PM CDT COVID: Suspected 07/01/2024 07/01/2024 07/02/2024 3:05 AM CDT documented as of this encounter Care Teams Varnish Finisher Relationship Specialty Start Date End Date Lavonne Hathaway MD [address] [place] [address] [place] [address] PCP - General 08/16/16 08/17/17 Justen Gale MD [address] [facility] [address] [address] PCP - General 08/18/17 08/22/17 Lavonne Hathaway MD [address] [place] [address] [place] [address] PCP - General Family Medicine 08/23/17 10/08/17 Justen Gale MD 2 [facility] [address] [address] PCP - General 10/09/17 Liu Jerez MD [address] [place] [address] [place] [address] Consulting Physician Gastroenterology 07/28/17 [place] [address] [facility] [address] [place] [address] Consulting Physician Pulmonary Disease 08/03/17 Khris Arthur MD [address] [facility] [address] [place] [address] Medical Oncologist/Stonecutter Assistant Medical Oncology 10/23/17 [place] [address] [facility] [address] [place] [address] Surgeon Orthopedic Surgery 10/23/17 [place] [address] [facility] [address] [place] [address] Consulting Physician Pain Management 10/23/17 [place] [address] [facility] [address] [place] [address] Referring Physician General Surgery 01/26/18 [place] [address] [facility] [address] [place] [address] Consulting Physician Neurology 01/26/18 documented as of this encounter
--- OUTSIDE RECORDS SUMMARY | 2024-10-06 18:30 | XMS_ITS | Encounter Summary ---
Author Organization [facility] Address [address] [place] [address] Phone Care Team Providers Care Retail Custodial Associate Name Role Phone Justen Gale MD Primary Care Provider [phone] David Roberts APRN, MEDICAL TERMINOLOGIST Unavailable Annel Rod MD Unavailable Reason for Visit * Reason Comments Medication Refill Encounter Details Date Type Department Care Team (Late st Contact Info) Description 02/17/2021 Refill [facility] - Family [facility] #2 [place] [address] Justen Gale MD #[address] [address] Medication Refill Social History Tobacco Use Types [...] [facility] 06/05/20 Office Visit Pili Elkins APRN, MEDICAL TERMINOLOGIST [facility] Showing recent visits within past 365 days and meeting all other requirements Future Appointments Date Type Provider Dept 03/02/21 Appointment Vince Hermosillo MD [facility] Showing future appointments within next 90 days and meeting all other requirements documented in this encounter Plan of Treatment Upcoming Encounters Date Type Department Care Team (Late st Contact Info) Description 10/22/2024 11:15 AM CDT Office Visit [facility] Endocrinology [facility] #2 [place] [address] Annel Rod MD #2 [facility] [address] [place] [address] 11/13/2024 2:00 PM CDT Appointment [facility] Cardiology Services 1 [place] [address] Angelito Alegria, DAMPER MAKER, MEDICAL TERMINOLOGIST #2 [facility] [address] [place] [address] Discharge Disposition: Discharged to home or Selfcare documented as of this encounter Visit Diagnoses Not on filedocumented in this encounter Additional Health Concerns Infection Onset Date Last Indicated Resolved Time COVID - 19 08/01/2024 08/01/2024 08/01/2024 3:20 PM CDT Assessment Noted Time PHQ-9 Depression Total Score: 0 07/21/19 3:00 PM CDT documented as of this encounter Care Teams Retail Custodial Associate Relationship Specialty Start Date End Date Justen Gale MD #[address] [address] PCP - General Family Medicine 10/17/17 David Roberts DAMPER MAKER, MEDICAL TERMINOLOGIST #2 [place] [address] Nurse Practitioner Advanced Practice Nurse 01/31/22 Annel Rod MD #[address] [address] Consulting Physician Endocrinology 07/01/22 documented as of this encounter
--- OUTSIDE RECORDS SUMMARY | 2024-10-06 18:30 | XMS_ITS | Encounter Summary ---
Author Organization [facility] Address [address] [place] [address] Phone Care Team Providers Care Engineer System Administrator Name Role Phone Justen Gale MD Primary Care Provider David Roberts APRN, SUPERVISOR RECEIVING AND PROCESSING Unavailable Annel Rod MD Unavailable Reason for Visit * Reason Comments Medication Refill Encounter Details Date Type Department Care Team (Late st Contact Info) Description 03/13/2021 Refill [facility] [address] [place] [address] Justen Gale MD #[address] [address] Medication Refill Social History Tobacco [...] COVID-19? No / Unsure 03/02/2021 5:05 PM SHEET METAL JOURNEYMAN documented as of this encounter Plan of Treatment Upcoming Encounters Date Type Department Care Team (Late st Contact Info) Description 10/22/2024 11:15 AM CDT Office Visit [facility] #[address] [place] [address] Annel Rod MD #[address] [facility] [address] [place] [address] 11/13/2024 2:00 PM CDT [facility] [address] [place] [address] Angelito Alegria, DRAINMAN, SUPERVISOR RECEIVING AND PROCESSING #[address] [facility] [address] [place] [address] Discharge Disposition: Discharged to home or Selfcare documented as of this encounter Visit Diagnoses Not on filedocumented in this encounter Additional Health Concerns Infection Onset Date Last Indicated Resolved Time COVID - 19 08/01/2024 08/01/2024 08/01/2024 3:20 PM CDT Assessment Noted Time PHQ-9 Depression Total Score: 0 07/21/19 3:00 PM CDT documented as of this encounter Care Teams Engineer System Administrator Relationship Specialty Start Date End Date Justen Gale MD #[address] [address] PCP - General Family Medicine 10/17/17 David Roberts APRN, SUPERVISOR RECEIVING AND PROCESSING #2 [place] [address] Nurse Practitioner Advanced Practice Nurse 01/31/22 Annel Rod MD #2 [place] [id number] Consulting Physician Endocrinology 07/01/22 documented as of this encounter
--- OUTSIDE RECORDS SUMMARY | 2024-10-06 18:30 | XMS_ITS | Encounter Summary ---
Author Organization [facility] Address [address] [place] [address] Phone Care Team Providers Care Integration Assistant Name Role Phone Justen Gale MD Primary Care Provider [phone] David Roberts APRN, BILLBOARD POSTER Unavailable Annel Rod MD Unavailable Reason for Visit * Reason Comments Medication Refill Encounter Details Date Type Department Care Team (Late st Contact Info) Description 08/30/2022 Refill [facility]2 [place] [address] Justen Gale MD #[address] [address] Medication Refill Social History Tobacco Use Types [...] [place] 05/02/22 Office Visit Justen Gale MD [facility] [place] 03/03/22 Office Visit Pili Elkins APRN, NETTA [facility] 01/03/22 Office Visit Dannielle Berg PAC [facility] [place] 12/07/21 Office Visit Pili Elkins APRN, NETTA [facility] 11/09/21 Office Visit Pili Elkins APRN, NETTA [facility] [place] 10/08/21 Office Visit Angelito Alegria APRN, NETTA [facility] 08/30/21 [facility] Show[facility] recent visits within past 365 [...] [facility] - [facility] [place] #[address] [place] [address] Annel Rod MD #[address] [address] 11/13/2024 2:00 PM CDT Appointment [facility] Cardiology [facility] [address] [place] [address] Angelito Alegria, MANUFACTURING INSPECTOR, BILLBOARD POSTER #[address] [address] Discharge Disposition: Discharged to home or Selfcare documented as of this encounter Visit Diagnoses Not on filedocumented in this encounter Additional Health Concerns Infection Onset Date Last Indicated Resolved Time COVID - 19 08/01/2024 08/01/2024 08/01/2024 3:20 PM CDT Assessment Noted Time PHQ-9 Depression Total Score: 0 07/21/19 3:00 PM CDT documented as of this encounter Care Teams Integration Assistant Relationship Specialty Start Date End Date Justen Gale MD #[address] [address] PCP - General Family Medicine 10/17/17 David Roberts, MANUFACTURING INSPECTOR, BILLBOARD POSTER #2 [place] [address] Nurse Practitioner Advanced Practice Nurse 01/31/22 Annel Rod MD #[address] [address] Consulting Physician Endocrinology 07/01/22 documented as of this encounter
--- OUTSIDE RECORDS SUMMARY | 2024-10-06 18:30 | XMS_ITS | CONTINUITY OF CARE DOCUMENT ---
Author Name ayesha, ayesha Address Unknown Organization [facility] Address [address] [facility] [address] [place] [address] Phone [phone] Care Team Providers Care Commercial Review Appraiser Name Role Phone Yamilet DURÁN, Maico Unavailable ALANIS DURÁN, BRIDGETT Unavailable [phone] ALLISON DURÁN, CLARISSE Unavailable PROBLEMS Condition Status Date Provider Notes Shortness of breath active Ivory Rodriguez Palpitations active Radha Seals INSURANCE PROVIDERS Payer name Policy type / Coverage type [place] red libertarian ID UHC MEDICARE COMPLETE HMO Other [id number] [facility] Medicaid 2 [id number] HISTORY OF PROCEDURES Procedure Date Procedure Name Provider Procedure Notes S tatus Stress EKG Carmine Silverio MD complet ed Regadenoson, 4 units Sergey Saldana MD completed Cardiolite, 2 units Sergey Saldana MD completed SPECT Images Carmine Silverio MD compl eted Holter, 24 or 48 Maico Woodard MD co mpleted
--- OUTSIDE RECORDS SUMMARY | 2024-10-06 18:30 | XMS_ITS | Encounter Summary ---
Author Organization [facility] Address [address] [place] [address] Phone Care Team Providers Care Electronic Coils Supervisor Name Role Phone Justen Gale MD Primary Care Provider David Roberts APRN, HUMAN RESOURCES COMMUNICATIONS MANAGER Unavailable Annel Rod MD Unavailable Reason for Visit * Reason Onset Date Comments Breathing Problem 08/07/2024 Muscle Pain 08/07/2024 Encounter Details Date Type Department Care Team (Late st Contact Info) Description 08/07/2024 Nurse Triage [facility] [address] [place] [address] Justen Gale MD #[address] [address] Breathing Problem; Muscle Pain Social History Tobacco [...] often do you attend chur ch or restorationism services? More than 4 times per year [...] time in the past 12 m [facility], were you homeless or living in a [...] this was discussed with the front office medical assistant and provider was to be notified in [...] Encouraged caller to bring cell phone and rod puller and coiler to contact EMS 911 if symptoms worsen [...] (e.g., disoriented, slurred speech) Protocols used: Breathing [id number] * Telephone Encounter - Neha Tomlinson - [...] Visit [facility] - [facility]ology - [place] [address] [place] [address] Annel Rod MD #2 [facility] [address] [place] [address] 11/13/2024 2:00 PM CDT [facility] [address] [place] [address] Angelito Alegria, HOLTER SCANNING TECHNICIAN, HUMAN RESOURCES COMMUNICATIONS MANAGER #2 [facility] [address] [place] [address] Discharge Disposition: Discharged to home or Selfcare documented as of this encounter Visit Diagnoses Not on filedocumented in this encounter Additional Health Concerns Assessment Noted Time PHQ-9 Depression Total Score: 0 08/02/19 25 1:09 PM CDT documented as of this encounter Care Teams Electronic Coils Supervisor Relationship Specialty Start Date End Date Justen Gale MD #2 [facility] [address] [place] [address] PCP - General Family Medicine 10/17/17 David Roberts APRN, HUMAN RESOURCES COMMUNICATIONS MANAGER #2 [place] [address] Nurse Practitioner Advanced Practice Nurse 01/31/22 Annel Rod MD #2 [facility] [address] [place] [phone] Consulting Physician Endocrinology 07/01/22 documented as of this encounter
--- OUTSIDE RECORDS SUMMARY | 2024-10-06 18:31 | XMS_ITS | Clinical Summary ---
Author Organization [facility] Address [address] [place] [address] Phone Care Team Providers Care Pmo Lead Name Role Phone Justen Gale MD Primary Care Provider [phone] David Roberts APRN, POST OFFICE CLERK Unavailable Annel Rod MD Unavailable Allergies Active [...] Blood Gluc Sensor (FreeStyle Eileen 2 Sensor) [facility] APPLY 1 SENSOR AND WEAR FOR 14 DAYS TO CHECK BLOOD SUGAR 6 Each 1 08/07/19 24 Active albuterol 108 (90 Base) MCG/ACT Aerosol Solution take 2 Puffs by inhalation. 04/19/20 21 Active gabapentin (NEURONTIN) 300 MG Capsule Take 300 mg by mouth. 06/20/19 24 Active HYDROcodone-ac etaminophen (NORCO) 10-325 MG Tablet Take 1 Tablet by mouth. 12/28/19 24 Active Multiple Vitamins-[place] als (WOMENS MULTI PO) Take by mouth. [...] 04/25/19 25 Active Continuous Glucose Sensor (FreeStyle Eielen 2 Sensor) [facility] 1 Each by Does not apply route every 14 days. Change sensor every 14 days. E11.42, insulin dependent 6 Each 1 04/25/19 25 Active Continuous Glucose Sensor (FreeStyle Eileen 2 Sensor) [facility] 1 Each by Does not apply route [...] taking until cleared by PCP office or comb setter. Will need to taper off slowly. Indications: Polymyalgia Rheumatica 30 Tablet 10/01/19 25 Active predniSONE (DELTASONE) 10 MG TabletIndicati ons:Polymyalgi a Rheumatica Take 1 Tablet by mouth daily. Do not stop taking until cleared by PCP office or comb setter. Will need to taper off slowly. Indications: [...] Overview: Added automatically from request for surgery [id number] Lymphedema of left upper extremity 08/09/2016 Pulmonary embolism 08/09/2016 Overview (11/09/2017): Last Assessment & Plan: On Rivaroxaban Arthralgia of ankle 01/26/2015 Cellulitis of breast 11/11/2014 Encounters Date Type Department Care Team Description 09/30/2024 MyChart RX Renewal [facility] [address] [place] [address] Dulce Wolff N, CLIENT ARCHITECT, POST OFFICE CLERK Medication Renewal Reviewed 09/29/2024 [facility] [address] [place] [address] Justen Gale MD Urinary Tract Infection 09/23/2024 [facility] [address] [place] [address] Justen Gale MD Breathing Problem; Pain 09/23/2024 Telephone [facility] [address] [place] [address] Justen Gale MD Pain 09/11/2024 [facility]phone [facility] [address] [place] [phone] Justen Gale MD Follow-up 09/06/2024 1:15 PM CDT Office Visit [facility] [address] [place] [phone] Dulce Wolff, CLIENT ARCHITECT, POST OFFICE CLERK Enlarged tonsils (Primary Dx); Polymyalgia rheumatica (HCC); Oral candidiasis; Edema, unspecified type Discharge Disposition: Discharged to home or Selfcare 09/06/2024 Travel 09/03/[address] [facility] [address] [place] [phone] Justen Gale MD Follow-up 09/02/2024 Nurse [facility] [address] [place] [phone] Justen Gale MD Sore Throat 08/20/2024 1:15 PM CDT Office Visit [facility] [address] [place] [phone] Justen Gale MD Acute maxillary sinusitis, recurrence not specified (Primary Dx) Discharge Disposition: Discharged to home or Selfcare 08/20/2024 Travel 08/19/[address] [facility] [address] [place] [phone] Justen Gale MD Advice Only; Follow-up 08/14/2024 Telephone [facility] Endocrinology [facility] [address] [place] [phone] Annel Rod MD High Blood Sugar 08/13/2024 Nurse Triage [facility] [address] [place] [phone] Justen Gale MD High Blood Sugar 08/07/2024 9:20 AM CDT Lab [facility] [facility] [address] [place] [phone] [facility]/Ancillary Body aches; Diffuse arthralgia Discharge Disposition: Discharged to home or Selfcare 08/07/2024 8:30 AM CDT Office Visit [facility] Family [facility] [address] [place] [phone] Angelito Alegria APRN, CNP Diffuse arthralgia (Primary Dx); Dyspnea on exertion; Type 2 diabetes mellitus with diabetic polyneuropathy, with long-term current use of insulin (HCC) Discharge Disposition: Discharged to home or Selfcare 08/07/2024 Results Follow-Up [facility] [address] [place] [phone] Angelito Alegria APRN, CNP CREATINE KINASE (CK) TOTAL, ERYTHROCYTE SEDIMENTATION RATE (ESR), C-REACTIVE PROTEIN (CRP) QUANT 08/07/2024 Nurse Triage [facility] [address] [place] [phone] Justen Gale MD Breathing Problem; Muscle Pain 08/06/2024 Travel 08/05/2024 MyChart RX Renewal [facility]ocr[facility] [address] [place] [phone] Annel Rod MD Medication Renewal Reviewed 08/05/2024 Nurse Triage [facility] [address] [place] [phone] Justen Gale MD Muscle Pain; Follow-up 08/03/2024 3:36 AM CDT - 08/03/2024 7:05 AM CDT Emergency [facility] Emergency [address] [place] [phone] Sergio Rivera MD Myalgia Discharge Disposition: Discharged to home or Selfcare 08/02/2024 Travel 08/02/2024 Nurse Triage [facility] [address] [place] [phone] Justen Gale MD Hemoptysis 08/02/2024 Telephone [facility] [address] [place] [phone] Justen Gale MD Results 08/02/[address] [facility] [address] [place] [address] Angelito Alegria APRN, POST OFFICE CLERK Results 08/02/2024 MyChart RX Renewal [facility] [address] [place] [address] Annel Rod MD Medication Renewal Reviewed 08/01/2024 2:13 PM CDT - 08/01/2024 4:16 PM CDT Emergency [facility] Emergency [address] [place] [address] Jack Leiva MD Dyspnea on exertion Discharge Disposition: Discharged to home or Selfcare 08/01/2024 1:15 PM CDT Office Visit [facility] [address] [place] [address] Angelito Alegria, ZAMZAM, POST OFFICE CLERK Body aches (Primary Dx) Discharge Disposition: Discharged to home or Selfcare 08/01/2024 Travel 08/01/2024 Nurse Triage [facility] [address] [place] [phone] Justen Gale MD Pain 07/22/[address] [facility] [address] [place] [address] Justen Gale MD Appointment 07/11/2024 Nurse Triage [facility] [address] [place] [phone] Justen Gale MD Toe Problem from Last 3 Months Immunizations Immunization Administration Dates Next Due Covid-19 Vaccine, Vector-nr, Rs-ad26, Pf, 0.5 Ml ([employer]) 06/29/2020 Influenza Vaccine greater than 3 yrs [...] 0.6 oz pur e alcohol) [facility] Utilities Answer Date Recorded In the past 12 months has [employer], gas, oil, or water [employer] threatened to shut off services in your [...] any clubs o r organizations such as taoist groups, unions, fraternal or athletic groups, or [...] Total Score - Questions 1-9 0 07/23 [facility] - Occupational Stress Questionnaire Answer Date [...] any time in the past 12 m onths, were you homeless or living in a [...] Visit [facility] [address] [place] [address] Annel Rod MD #[address] [facility] [address] [place] [address] 11/13/2024 2:00 PM CDT Appointment [facility] [address] [place] [address] Angelito Alegria, CLIENT ARCHITECT, POST OFFICE CLERK #[address] [facility] [address] [place] [address] Discharge Disposition: Discharged to home or Selfcare [...] screening for human papillomavirus (HPV) PATHOLOGY CYTOLOGY SINGER SONGWRITER Routine 07/05/2022 2:24 PM CDT Encounter for [...] ORDERABLES Final Result Performing Organization Address City/[facility] Co de Phone Number SCAN * PAIN CONSULT (09/19/2024 12:00 AM CDT) Only the most recent of2 resultswithin the time period is included. 09/19/2024 Justen Gale MD GENERIC SCAN ORDERS CONSULT F inal Result Performing Organization Address [facility] Co de Phone Number SCAN * CT - HEAD/NECK (08/13/2024 12:00 AM CDT) 08/13/[address] ORDERABLES Final Result Performing Organization Address [facility] de Phone Number SCAN * (ABNORMAL) ERYTHROCYTE SEDIMENTATION RATE (ESR) (08/07/2024 8:59 AM CDT) Only the most recent of2 resultswithin the time period is included. ESR (SED RATE, ERYTHROCYTE SEDIMENTATION RATE) 52(H) <30 mm/h 08/07/2024 12:34 PM CDT [facility] Comment: Patients presenting with increased level of fibrinogen, gamma globulins, or abnormally shaped RBCs could affect the results for the erythrocyte sedimentation rate (ESR). Results should be clinically correlated. Blood Venipuncture / Unknown 08/07/2024 8:59 AM CDT 08/07/2024 8:59 AM CDT Angelito Alegria APRN, CNP HEMATOLOGY ORDER CHAPARRO Final Result Performing Organization Address City/[facility]/ZIP Co de Phone Number [facility] [address] [place] [address] * CREATINE KINASE (CK) TOTAL (08/07/2024 8:59 AM CDT) Only the most recent of2 resultswithin the time period is included. CK (CPK) 151 29 - 168 U/L 08/07/2024 1:08 PM CDT [facility] Blood Venipuncture / Unknown 08/07/2024 8:59 AM CDT 08/07/2024 8:59 AM CDT Angelito Alegria APRN, CNP HEMATOLOGY ORDER CHAPARRO Final Result Performing Organization Address [facility] Co de Phone Number [facility] [address] [place] [address] * (ABNORMAL) C-REACTIVE PROTEIN (CRP) QUANT (08/07/2024 8:59 AM CDT) Only the most recent of2 resultswithin the time period is included. C-REACTIVE PROTEIN 1.21(H) <0.50 mg/dL 08/07/2024 12:54 PM CDT [facility] Blood Venipuncture / Unknown 08/07/2024 8:59 AM CDT 08/07/2024 8:59 AM CDT Angelito Alegria APRN, CNP CHEMISTRY ORDERA BLES Final Result Performing Organization Address [facility] Co de Phone Number [facility] [address] [place] [address] * (ABNORMAL) POCT GLUCOSE (08/07/2024 8:31 AM CDT) GLUCOSE 186(A) 70 - 99 mg/dL 08/07/2024 8:31 AM CDT us Angelito Alegria APRN, POST OFFICE CLERK POINT OF CARE TE STING (MANUAL) Final [...] Sen Sy M.D. JANIYA: JANIYA Report ID: [id number] Reading Location: [id number] Procedure Note Dillon Sy MD - 08/03/2024 [...] signed by Sen DENSON: JANIYA Report ID: [id number] Reading Location: [id number] IMPRESSION: Negative right hip. Sergio Rivera MD [...] Patrick Zhou M.D. KH: KATH Report ID: [id number] Reading Location: [id number] Procedure Note Patrick Zhou MD - 08/03/2024 [...] Patrick Zhou M.D. KH: KATH Report ID: [id number] Reading Location: [id number] IMPRESSION: Mild bilateral infiltrates are suspected superimposed on chronic lung changes. Sergio Rivera MD IMG DIAGNOSTIC ORDERABLES Final Result * CBC with Auto Differential (08/02/2024 11:21 PM CDT) Only the most recent of2 resultswithin the time period is included. WBC 9.26 4.00 - 12.00 10(3)/mcL 08/03/2024 12:08 AM CDT [facility] RBC 4.62 3.80 - 5.30 10(6)/mcL 08/03/2024 12:08 AM CDT [facility] HEMOGLOBIN (HGB) 13.5 12.0 - 15.8 g/dL 08/03/2024 12:08 AM CDT [facility] HEMATOCRIT (HCT) 42.9 36.0 - 47.0 % 08/03/2024 12:08 AM CDT [facility] MCV 92.9 82.0 - 96.0 fL 08/03/2024 12:08 AM CDT [facility] MCH 29.2 26.0 - 34.0 pg 08/03/2024 12:08 AM CDT [facility] MCHC 31.5 31.0 - 36.0 g/dL 08/03/2024 12:08 AM CDT [facility] PLATELET COUNT 272 140 - 440 10(3)/mcL 08/03/2024 12:08 AM CDT [facility] RDW 12.8 11.8 - 15.5 % 08/03/2024 12:08 AM CDT [facility] MPV 10.2 9.7 - 12.4 fL 08/03/2024 12:08 AM CDT [facility] NEUTROPHILS 62.5 47.0 - 73.0 % 08/03/2024 12:08 AM CDT [facility] LYMPHOCYTES 27.1 18.0 - 42.0 % 08/03/2024 12:08 AM CDT [facility] MONOCYTES 7.1 4.0 - 12.0 % 08/03/2024 12:08 AM CDT [facility] EOSINOPHILS 3.0 0.0 - 5.0 % 08/03/2024 12:08 AM CDT [facility] BASOPHILS 0.3 0.0 - 1.0 % 08/03/2024 12:08 AM CDT [facility] ABSOLUTE NEUTROPHILS 5.78 1.60 - 7.70 10(3)/mcL 08/03/2024 12:08 AM CDT [facility] ABSOLUTE LYMPHOCYTES 2.51 1.30 - 3.20 10(3)/[facility] 08/03/2024 12:08 AM CDT [facility] ABSOLUTE MONOCYTES 0.66 0.20 - 1.00 10(3)/[facility] 08/03/2024 12:08 AM CDT [facility] ABSOLUTE EOSINOPHIL 0.28 0.00 - 0.40 10(3)/[facility] 08/03/2024 12:08 AM CDT [facility] ABSOLUTE BASOPHILS 0.03 0.00 - 0.10 10(3)/[facility] 08/03/2024 12:08 AM CDT [facility] NRBC PER 100 WBC 0 08/04/19 25 12:08 AM CDT [facility] Blood Venipuncture / Unknown 08/02/2024 11:21 PM CDT 08/03/2024 12:05 AM CDT us Sergio Rivera MD HEMATOLOGY ORDERABLES Final Resu lt [facility] [address] [place] [address] * (ABNORMAL) CMP (Comprehensive Metabolic Panel) (08/02/2024 11:21 PM CDT) Only the most recent of2 resultswithin the time period is included. SODIUM 138 136 - 145 mmol/L 08/03/2024 12:29 AM T [facility] POTASSIUM 4.4 3.5 - 5.1 mmol/L 08/03/2024 12:29 AM T [facility] CHLORIDE 104 98 - 107 mmol/L 08/03/2024 12:29 AM T [facility] CO2, VENOUS 26 22 - 30 mmol/L 08/03/2024 12:29 AM T [facility] ANION GAP 12.4 <18.0 mmol/L 08/03/2024 12:29 AM T [facility] GLUCOSE 353(H) 70 - 99 mg/dL 08/03/2024 12:29 AM T [facility] BUN 18 10 - 20 mg/dL 08/03/2024 12:29 AM [facility] CREATININE, BLOOD 0.80 0.60 - 1.00 mg/dL 08/03/2024 12:29 AM T [facility] BUN/CREATININE RATIO 23(H) 12 - 20 ratio 08/03/2024 12:29 AM [facility] TOTAL PROTEIN 8.4(H) 6.0 - 8.0 g/dL 08/03/2024 12:29 AM [facility] ALBUMIN 3.8 3.5 - 5.0 g/dL 08/03/2024 12:29 AM T [facility] A/G RATIO 0.8(L) 1.0 - 2.2 08/03/2024 12:29 AM [facility] CALCIUM 10.0 8.7 - 10.5 mg/dL 08/03/2024 12:29 AM T [facility] T BILI 0.4 0.2 - 1.2 mg/dL 08/03/2024 12:29 AM T [facility] SGOT (AST) 23 <43 U/L 08/03/2024 12:29 AM CDT [facility] SGPT (ALT) 22 <56 U/L 08/03/2024 12:29 AM CDT [facility] ALKALINE PHOSPHATASE 67 40 - 150 U/L 08/03/2024 12:29 AM CDT [facility] GFR, ESTIMATED >60 >=60 08/03/2024 12:29 AM CDT [facility] Comment: Creatinine Clearance is the preferred criteria for selecting drug dose adjustments in renally impaired patients. The GFR is provided as additional pertinent clinical information. GFR is reported in mL/min/1.73 sq m. Calculation based on the Chronic Kidney Disease Epidemiology Collaboration (CKD- EPI) equation refit without adjustment for race. GFR, EST. >60 >=60 025 12:29 AM CDT [facility] GFR, EST. NONAFRICAN >60 >=60 08/03/2024 12:29 AM CDT [facility] Blood Venipuncture / Unknown 08/02/2024 11:21 PM CDT 08/03/2024 12:05 AM CDT Sergio Rivera MD CHEMISTRY ORDERABLES Final Resul t [facility] [address] [place] [address] * TROPONIN I, HIGH SENSITIVITY (HSTRP) (08/01/2024 2:48 PM CDT) TROPONIN I, HIGH SENSITIVITY- [place] 4 <=14 ng/L 08/01/2024 3:45 PM CDT [facility] Comment: High-sensitivity troponin I results are reported in ng/L making the result appear to be 1,000 times higher than the contemporary troponin I value which is reported in ng/ml. Results from [place]. Blood Venipuncture / Unknown 08/01/2024 2:48 PM CDT 08/01/2024 3:08 PM CDT Jack Leiva MD CHEMISTRY ORDERABLES Deann l Result Performing Organization Address City/[facility]/ZIP Co de Phone Number [facility] [address] [place] [address] * Gold Top Tube (08/01/2024 2:48 PM CDT) Blood No Phlebotomy Charged / Unknown 08/01/2024 2:48 PM CDT 08/01/2024 3:12 PM CDT us Jack Leiva MD CHEMISTRY ORDERABLES Deann l Result Performing Organization Address [facility] Co de Phone Number [facility] [address] [place] [address] * Blue Top Tube (08/01/2024 2:48 PM CDT) Blood No Phlebotomy Charged / Unknown 08/01/2024 2:48 PM CDT 08/01/2024 3:12 PM CDT Jack Leiva MD HEMATOLOGY ORDERABLES Fin al Result Performing Organization Address [facility] Co de Phone Number [facility] [address] [place] [address] * Magnesium (08/01/2024 2:48 PM CDT) MAGNESIUM 1.6 1.6 - 2.6 mg/dL 08/01/2024 3:39 PM CDT [facility] Blood Venipuncture / Unknown 08/01/2024 2:48 PM CDT 08/01/2024 3:08 PM CDT Jack Leiva MD CHEMISTRY ORDERABLES Deann l Result Performing Organization Address City/[facility]/ZIP Co de Phone Number [facility] [address] [place] [address] * B-Type Natriuretic Peptide (BNP) (08/01/2024 2:48 PM CDT) B TYPE NATRIURETIC PEPTIDE 23 <100 pg/mL 08/01/2024 3:37 PM CDT [facility] Blood Venipuncture / Unknown 08/01/2024 2:48 PM CDT 08/01/2024 3:08 PM CDT us Jack Leiva MD CHEMISTRY ORDERABLES Deann l Result [facility] [address] [place] [address] * EKG 12 LEAD (08/01/2024 2:41 PM CDT) Ventricular Rate 75 BPM EXTERNAL EKG Atrial Rate 75 BPM EXTERNAL EKG P-R Interval 134 ms EXTERNAL EKG QRS Duration 82 ms EXTERNAL EKG Q-T Duration 380 ms EXTERNAL EKG QTC CALCULATION 424 ms EXTERNAL EKG P Arnold -77 degrees EXTERNAL EKG R Arnold 28 degrees EXTERNAL EKG T Arnold 53 degrees EXTERNAL EKG 08/01/2024 2:41 PM CDT Impressions EXTERNAL EKG - 08/04/2024 12:00 PM CDT Atrial-sensed ventricular-paced rhythm Abnormal ECG No previous ECGs available Confirmed by Maryann Clay ([id number]) on 08/04/2024 11:59:59 AM Narrative Procedure Note Maryann Clay MD - 08/04/2024 IMPRESSION: Atrial-sensed ventricular-paced rhythm Abnormal ECG No previous ECGs available Confirmed by Maryann Clay ([id number]) on 08/04/2024 11:59:59 AM us Jack Leiva MD IMG ECG ORDERABLES Final Result Performing Organization Address City/[facility]/ZIP Co de Phone Number EXTERNAL EKG [...] Romelia Bowen D.O. PS: PS Report ID: [id number] Reading Location: [id number] Procedure Note Romelia Bowen DO - 08/01/2024 [...] Romelia Bowen D.O. PS: PS Report ID: [id number] Reading Location: [id number] IMPRESSION: Patchy left basilar airspace opacities, which may be related to subsegmental atelectasis/scarring versus developing airspace disease. Jack Leiva MD IMG DIAGNOSTIC ORDERABLES Final Result * RSV,SARS-COV-2,INFLUENZA A&B BY PCR (08/01/2024 2:28 PM CDT) FLU A Negative Negative, Error 08/01/2024 3:20 PM CDT [facility] FLU B Negative Negative 08/01/2024 3:20 PM CDT [facility] RESP SYNC VIRUS Negative Negative 3:20 PM CDT [facility] SARSCOV2 NOT DETECTED (Reference Range for this test is Not Detected) 08/01/2024 3:20 PM CDT [facility] Comment:This test was perfor med by a Reverse Senior Power Scheduler PCR Method. Swab NASOPHARYNGEAL STRUCTURE / Unknown Non-Phlebotomy Collection / Unknown 08/01/2024 2:28 PM CDT 08/01/2024 2:33 PM CDT Result [facility] Jack Leiva MD MICROBIOLOGY - GENERAL OR DERABLES Final Result Performing Organization Address [facility] Co de Phone Number [facility] [address] [place] [address] * EKG SCAN (08/01/2024 12:00 AM CDT) 08/01/2024 Provider Scan IMG ECG ORDERABLES Final Result RESULTING AGENCY * CT - CHEST (07/22/2024 12:00 AM CDT) 07/22/[address] ORDERABLES Final Result Performing Organization Address City/[facility]/ZIP Co de Phone Number SCAN * XR - LOWER EXTREMITY (07/10/2024 12:00 AM CDT) 07/10/2024 us Provider Scan IMG DIAGNOSTIC ORDERABLES Final Result SCAN * HEMOGLOBIN, A1C (10/02/2023 12:00 AM CDT) HGB-A1C 7.8 SCAN 10/02/2023 us Provider Scan CHEMISTRY ORDERABLES Final Resul t SCAN * PATHOLOGY CYTOLOGY SINGER SONGWRITER (07/05/2022 2:24 PM CDT) SPECIMEN ADEQUACY A scant cellular component is noted. Scant cellularity is likely due to presence of lubricant. 07/08/2022 8:38 AM CDT [facility] DESCRIPTIVE DIAGNOSIS NEGATIVE FOR INTRAEPITHELIAL LESIONS OR MALIGNANCY. 07/08/2022 8:38 AM CDT [facility] at 0838 CDT OTHER FINDINGS Atrophic hormonal pattern. 07/08/2022 8:38 AM CDT [facility] Automated Examination This sample was not evaluated by the automated imaging and review system ([employer] System, [employer], [place], [place] due to technical and / or biologic factor(s). The case was screened, reviewed, and finalized by a paper grader and / or pathologist. 07/08/2022 8:38 AM CDT [facility] Disclaimer The PAP smear is [...] unless clinically indicated. 07/08/2022 8:38 AM CDT [facility] Other CERVIX UTERI STRUCTURE / Unknown Non-Phlebotomy Collection / Unknown 07/05/2022 2:24 PM CDT 07/05/2022 2:24 PM CDT us Pili Elkins APRN, CNP PATHOLOGY/CYTOLOGY O RDERABLES Final Result [facility] [address] [place] [address], * HUMAN PAPILLOMA VIRUS (HPV) (07/05/2022 2:24 PM CDT) HPV OTHER HIGH RISK TYPES, PCR NEGATIVE NEGATIVE 07/06/2022 2:37 PM CDT [facility] Comment: The following Other High [...] 16 NEGATIVE NEGATIVE 07/06/2022 2:37 PM CDT [facility] Comment: A negative high-risk HPV [...] 18 NEGATIVE NEGATIVE 07/06/2022 2:37 PM CDT [facility] Comment: A negative high-risk HPV [...] OR DIAGNOSTIC SCREENING 07/06/2022 2:37 PM CDT [facility] Other Non-Phlebotomy Collection / Unknown 07/05/2022 2:24 PM CDT 07/05/2022 2:24 PM CDT Narrative [facility] - 07/06/2022 2:37 PM CDT Performed by Real-Time Polymerase Chain Reaction (PCR) on the Ronnie Vinay 4800. This assay has been validated for use with post-aliquot samples from the [employer] T5000 processor. Pili Elkins APRN, CNP LAB SEND OUTS Deann l Result [facility] [address] [place] [address], [place] [facility] [address] [place] [address] * HM COLONOSCOPY (01/09/2020) Genaro Jensen DO PROCEDURE/MINOR SURGICAL ORDERA BLES Final Result * AMB REFERRAL TO PODIATRY (08/13/2019) Alvarez Mensah MD OUTPATIENT REFERRALS Final Res ult * POCT STOOL, OCCULT BLOOD, DIAGNOSTIC (09/07/2018 1:20 PM CDT) OCCULT BLOOD, STOOL Negative Negative, Other POC HEMOCULT CONTROL [employer] Glass Technician Pass 09/07/2018 1:20 PM CDT Pili Elkins APRN, CNP POINT OF CARE TESTIN G (MANUAL) Final Result from Last 3 Months or Most Recently Relevant to Health Maintenance Insurance MEDICARE C [facility] Care Teams Pmo Lead Relationship Specialty Start Date End Date Justen Gale MD #2 [facility] [address] [place] [address] PCP - General Family Medicine 10/17/17 David Roberts, CLIENT ARCHITECT, POST OFFICE CLERK #2 [place] [address] Nurse Practitioner Advanced Practice Nurse 01/31/22 Annel Rod MD #2 [facility] [address] [place] [address] Consulting Physician Endocrinology 07/01/22
--- OUTSIDE RECORDS SUMMARY | 2024-10-06 18:31 | XMS_ITS | Encounter Summary ---
Author Organization [facility] Address [address] [place] [address] Phone Care Team Providers Care Ibm Websphere Commerce Consultant Name Role Phone Justen Gale MD Primary Care Provider [phone] David Roberts APRN, GARNETT ROOM WORKER Unavailable [phone] Annel Rod MD Unavailable Reason for Visit * Reason Comments Medication Refill Encounter Details Date Type Department Care Team (Late st Contact Info) Description 07/06/2023 Refill [facility] #2 [place] [phone] Justen Gale MD #[address] [address] Medication Refill Social History Tobacco Use Types [...] Dept 06/27/23 Office Visit Justen Gale MD [facility] [place] 01/17/23 Office Visit Catrina Quiñonez MD [facility] [place] Showing recent visits within past [...] Description 10/22/2024 11:15 AM CDT Office Visit [facility] - Endocrinology - [place] #[address] [place] [address] Annel Rod MD #[address] [facility] [address] [place] [address] 11/13/2024 2:00 PM CDT Appointment [facility] Cardiology Services 1 [place] [address] Angelito Alegria, SHIPFITTERS SUPERVISOR, GARNETT ROOM WORKER #2 [facility] [address] [place] [address] Discharge Disposition: Discharged to home or Selfcare documented as of this encounter Visit Diagnoses Not on filedocumented in this encounter Additional Health Concerns Infection Onset Date Last Indicated Resolved Time COVID - 19 08/01/2024 08/01/2024 08/01/2024 3:20 PM CDT Assessment Noted Time PHQ-9 Depression Total Score: 8 01/18/20 23 2:24 PM CDT documented as of this encounter Care Teams Ibm Websphere Commerce Consultant Relationship Specialty Start Date End Date Justen Gale MD #[address] [address] PCP - General Family Medicine 10/17/17 David Roberts APRN, GARNETT ROOM WORKER #2 [place] [address] Nurse Practitioner Advanced Practice Nurse 01/31/22 Annel Rod MD #[address] [address] Consulting Physician Endocrinology 07/01/22 documented as of this encounter
--- OUTSIDE RECORDS SUMMARY | 2024-10-06 18:31 | XMS_ITS | Encounter Summary ---
Author Organization [facility] Address [address] [place] [address] Phone Care Team Providers Care Balling Machine Operator Name Role Phone Justen Gale MD Primary Care Provider David Roberts APRN, RAW MATERIAL HANDLER Unavailable Annel Rod MD Unavailable Reason for Visit * Reason Comments Medication Refill Encounter Details Date Type Department Care Team (Late st Contact Info) Description 08/07/2023 Refill [facility] Endocrinology - [place] #2 [place] [address] Annel Rod MD #[address] [address] Medication Refill Social History Tobacco [...] [facility] - Endocrinology [facility] #2 [place] [address] Annel Rod MD #[address] [address] 11/13/2024 2:00 PM CDT Appointment [facility] Cardiology Services 1 [place] [address] Angelito Alegria APRN, NETTA #[address] [address] Discharge Disposition: Discharged to home or Selfcare documented as of this encounter Visit Diagnoses Not on filedocumented in this encounter Additional Health Concerns Infection Onset Date Last Indicated Resolved Time COVID - 19 08/01/2024 08/01/2024 08/01/2024 3:20 PM CDT Assessment Noted Time PHQ-9 Depression Total Score: 8 01/18/20 2:24 PM CDT documented as of this encounter Care Teams Balling Machine Operator Relationship Specialty Start Date End Date Justen Gale MD #[address] [place] [address] PCP - General Family Medicine 10/17/17 David Roberts APRN, RAW MATERIAL HANDLER #2 [place] [address] Nurse Practitioner Advanced Practice Nurse 01/31/22 Annel Rod MD #[address] [address] Consulting Physician Endocrinology 07/01/22 documented as of this encounter
--- OUTSIDE RECORDS SUMMARY | 2024-10-06 18:31 | XMS_ITS | Encounter Summary ---
Author Organization [facility] Address [address] [place] [address] Phone Care Team Providers Care Speech Pathology Teacher Name Role Phone Justen Gale MD Primary Care Provider David Roberts APRN, EXPERIMENTAL DISPLAY BUILDER Unavailable Annel Rod MD Unavailable Reason for Visit * Reason Comments Medication Refill Encounter Details Date Type Department Care Team (Late st Contact Info) Description 03/02/2023 Refill [facility] #2 [place] [phone] Justen Gale MD #[address] [address] Medication Refill Social History Tobacco Use Types [...] Tamika Villarreal RN - 03/02/2023 8:51 AM MANAGER BATTERY Medication failed the protocol, provider to review [...] Catrina Quiñonez MD [facility] [address] 09/16/22 Office Visit Pili Elkins APRN, CNP [facility] 07/05/22 Office Visit Pili Elkins APRN, NETTA [facility] 05/02/22 Office Visit Justen Gale MD [facility] [address] 03/03/22 Office Visit Pili Elkins APRN, NETTA [facility] [address] Showing recent visits within past 365 days and meeting all other requirements Future Appointments No visits were found meeting these conditions. Showing future appointments within next 90 days and meeting all other requirements GER BATTERY documented in this encounter Plan of Treatment Upcoming Encounters Date Type Department Care Team (Late st Contact Info) Description 10/22/2024 11:15 AM CDT Office Visit [facility]ology - [place] #2 [place] [address] Annel Rod MD #[address] [phone] 11/13/2024 2:00 PM CDT Appointment [facility] Cardiology Services 1 [place] [address] Angelito Alegria, DENTAL INTERNSHIP, EXPERIMENTAL DISPLAY BUILDER #[address] [address] Discharge Disposition: Discharged to home or Selfcare documented as of this encounter Visit Diagnoses Not on filedocumented in this encounter Additional Health Concerns Infection Onset Date Last Indicated Resolved Time COVID - 19 08/01/2024 08/01/2024 08/01/2024 3:20 PM CDT Assessment Noted Time PHQ-9 Depression Total Score: 8 01/18/20 2:24 PM CDT documented as of this encounter Care Teams Speech Pathology Teacher Relationship Specialty Start Date End Date Justen Gale MD #[address] [address] PCP - General Family Medicine 10/17/17 David Roberts APRN, EXPERIMENTAL DISPLAY BUILDER #2 [place] [address] Nurse Practitioner Advanced Practice Nurse 01/31/22 Annel Rod MD #[address] [address] Consulting Physician Endocrinology 07/01/22 documented as of this encounter
--- OUTSIDE RECORDS SUMMARY | 2024-10-06 18:31 | XMS_ITS | Encounter Summary ---
Author Organization [facility] Address [address] [place] [place] [address] Care Team Providers Care Track Layer Head Name Role Phone Justen Gale MD Primary Care Provider [phone] Encounter Details Date Type Department Care Team (Late st Contact Info) Description 08/14/2024 Results Follow-Up ER at [facility] [address] [place] [address] Josué Bernal, STEPH [address] [place] [phone] Social History Tobacco Use Types Packs/Day [...] heating? Somewhat hard 05/16/2023 [facility] [place] [facility] - Occupational Stress [...] in a assisted (including now)? No 05/16/2023 Comments No Sex and Gender Information Value Date Recorded Sex Assigned at Not on file Legal Sex Female 6:53 PM TECHNOLOGY SPECIALIST Gender Identity Not on file Sexual [...] on filedocumented in this encounter Care Teams Track Layer Head Relationship Specialty Start Date End Date Justen Gale MD PCP - General 07/05/21 documented as of this encounter
--- OUTSIDE RECORDS SUMMARY | 2024-10-06 18:31 | XMS_ITS | Encounter Summary ---
Author Organization [facility] Address [address] [place] [address] Phone Care Team Providers Care Melter Supervisor Oxygen Furnace Name Role Phone Justen Gale MD Primary Care Provider David Roberts APRN, LENS MOUNTER Unavailable Annel Rod MD Unavailable Reason for Visit * Reason Onset Date Comments Sore Throat 09/02/2024 Encounter Details Date Type Department Care Team (Late st Contact Info) Description 09/02/2024 Nurse Triage [facility] Call Center [address] [place] [address] Justen Gale MD #[address] [address] Sore Throat Social History Tobacco Use Types [...] How often do you attend chur or sabianism services? More than 4 times [...] Pharmacy, medications, and allergies reviewed. Discussed utilizing [employer] to: discuss if they would prefer a [employer] message or phone call response - See [...] Ulcers - Caller Reports Outcome: Transfer to stereoptician queue Reason: Caller denied all higher acuity questions The caller accepted this outcome. Caller Denied: * Struggling for each breath (severe trouble breathing) * Can't swallow saliva (drooling) documented in this encounter Plan of Treatment Upcoming Encounters Date Type Department Care Team (Late st Contact Info) Description 10/22/2024 11:15 AM CDT Office Visit [facility]ology - [place] #2 [place] [address] Annel Rod MD #[address] [address] 11/13/2024 2:00 PM CDT [facility]ointment [facility] Cardiology Services 1 [place] [address] Angelito Alegria, REINSURANCE ACCOUNTANT, LENS MOUNTER #2 [facility] [address] [place] [address] Discharge Disposition: Discharged to home or Selfcare documented as of this encounter Visit Diagnoses Not on filedocumented in this encounter Additional Health Concerns Assessment Noted Time PHQ-9 Depression Total Score: 0 08/02/19 25 1:09 PM CDT documented as of this encounter Care Teams Melter Supervisor Oxygen Furnace Relationship Specialty Start Date End Date Justen Gale MD #[address] [address] PCP - General Family Medicine 10/17/17 David Roberts APRN, LENS MOUNTER #2 [place] [address] Nurse Practitioner Advanced Practice Nurse 01/31/22 Annel Rod MD #[address] [address] Consulting Physician Endocrinology 07/01/22 documented as of this encounter
--- OUTSIDE RECORDS SUMMARY | 2024-10-06 18:31 | XMS_ITS | Encounter Summary ---
Author Organization [facility] Address [address] [place] [address] Phone Care Team Providers Care Ux Developer Designer Name Role Phone Justen Gale MD Primary Care Provider David Roberts APRN, GAS TRANSFER OPERATOR Unavailable [phone] Annel Rod MD Unavailable Reason for Visit * Reason Onset Date Comments Advice Only 11/21/2023 Encounter Details Date Type Department Care Team (Late st Contact Info) Description 11/21/2023 Telephone [facility] [address] [place] [address] Justen Gale MD #[address] [address] Advice Only Social History Tobacco Use Types [...] 11/21/2023 3:17 PM CDT RFC: Alejandra from [facility] is calling to state that [...] Visit [facility]ology - [place] #2 [place] [address] Annel Rod MD #2 [facility] [address] [place] [address] 11/13/2024 2:00 PM CDT [facility]ointment [facility] Cardiology Services 1 [place] [address] Angelito Alegria APRN, GAS TRANSFER OPERATOR #2 [facility] [address] [place] [address] Discharge Disposition: Discharged to home or Selfcare documented as of this encounter Visit Diagnoses Not on filedocumented in this encounter Additional Health Concerns Infection Onset Date Last Indicated Resolved Time COVID - 19 08/01/2024 08/01/2024 08/01/2024 3:20 PM CDT Assessment Noted Time PHQ-9 Depression Total Score: 8 01/18/20 2:24 PM CDT documented as of this encounter Care Teams Ux Developer Designer Relationship Specialty Start Date End Date Justen Gale MD #2 [facility] [address] [place] [address] PCP - General Family Medicine 10/17/17 David Roberts APRN, NETTA #2 [place] [address] Nurse Practitioner Advanced Practice Nurse 01/31/22 Annel Rod MD #2 [facility] [address] [place] [address] Consulting Physician Endocrinology 07/01/22 documented as of this encounter
--- OUTSIDE RECORDS SUMMARY | 2024-10-06 18:31 | XMS_ITS | Encounter Summary ---
Author Organization [facility] Address [address] [place] [address] Phone Care Team Providers Care Certified Ophthalmic Technician Name Role Phone Justen Gale MD Primary Care Provider David Roberts APRN, CIGARETTE CARTON SEALER Unavailable Annel Rod MD Unavailable Reason for Visit * Reason Comments Medication Refill Encounter Details Date Type Department Care Team (Late st Contact Info) Description 03/05/2023 Refill [facility] #2 [place] [address] Pili Elkins APRN, CIGARETTE CARTON SEALER #[address] [address] Medication Refill Social History [...] discontinued on 10/19/2022 by Justen Gale MD [employer] documented in this encounter Plan of Treatment Upcoming Encounters Date Type Department Care Team (Late st Contact Info) Description 10/22/2024 11:15 AM CDT Office Visit [facility] - End[facility]ology - [place] #2 [place] [address] Annel Rod MD #2 [facility] [address] [place] [address] 11/13/2024 2:00 PM CDT [facility] 1 [place] [address] Angelito Alegria APRN, CIGARETTE CARTON SEALER #2 [facility] [address] [place] [address] Discharge Disposition: Discharged to home or Selfcare documented as of this encounter Visit Diagnoses Diagnosis Essential hypertension Unspecified essential hypertension documented in this encounter Additional Health Concerns Infection Onset Date Last Indicated Resolved Time COVID - 19 08/01/2024 08/01/2024 08/01/2024 3:20 PM CDT Assessment Noted Time PHQ-9 Depression Total Score: 8 01/18/20 2:24 PM CDT documented as of this encounter Care Teams Certified Ophthalmic Technician Relationship Specialty Start Date End Date Justen Gale MD #2 [facility] [address] [place] [address] PCP - General Family Medicine 10/17/17 David Roberts APRN, NETTA #2 [place] [address] Nurse Practitioner Advanced Practice Nurse 01/31/22 Annel Rod MD #2 [facility] [address] [place] [address] Consulting Physician Endocrinology 07/01/22 documented as of this encounter
--- OUTSIDE RECORDS SUMMARY | 2024-10-06 18:31 | XMS_ITS | Encounter Summary ---
Author Organization [facility] Address [address] [place] [address] Phone Care Team Providers Care Gang Punch Operator Name Role Phone Liu Jerez MD Unavailable Albert Corbin MD Unavailable Justen Gale MD Primary Care Provider [phone] Khris Arthur MD Unavailable [phone] Ko Melendez MD Unavailable John Paul Moyer MD Unavailable [phone] Annel Rod MD Unavailable Anali MARSHALL MD, Carlos M. Unavailable [phone] Encounter Details Date Type Department Care Team [...] file Legal Sex Female 12:24 AM HEEL SEAM RUBBER Gender Identity Not on file Sexual [...] COVID: Recovered 02/10/2022 02/10/2022 06/10/2022 3:05 AM HEEL SEAM RUBBER Exposure, COVID-19 Comment:Added automatically based on COVID19 lab answers indicating exposure risk 02/11/2022 02/11/2022 02/15/2022 9:06 AM C DT COVID: Suspected 05/14/2022 05/14/2022 05/14/2022 10:41 AM HEEL SEAM RUBBER COVID: Suspected 06/07/2022 06/07/2022 06/07/2022 12:28 PM HEEL SEAM RUBBER COVID: Suspected 06/21/2022 06/21/2022 06/21/2022 2:12 AM HEEL SEAM RUBBER COVID: Suspected 10/05/2022 10/05/2022 10/05/2022 7:40 PM CDT COVID: Suspected 01/04/2024 01/04/2024 01/04/2024 10:30 PM CDT COVID: Suspected 02/14/2024 02/14/2024 02/15/2024 12:36 AM CDT COVID: Suspected 07/01/2024 07/01/2024 07/01/2024 2:53 PM CDT COVID: Suspected 07/01/2024 07/01/2024 07/02/2024 3:05 AM CDT documented as of this encounter Care Teams Gang Punch Operator Relationship Specialty Start Date End Date Justen Gale MD 2 [facility] [address] [place] [address] PCP - General 10/09/17 Liu Jerez MD Consulting Physician Gastroenterology 07/28/[address] [place] [address] [facility] [address] [place] [address] Consulting Physician Pulmonary Disease 08/03/17 [place] [address] [place] [address] [place] [address] Medical Oncologist/Management Psychologist Medical Oncology 10/23/17 [place] [address] [address] Surgeon Orthopedic Surgery 10/23/17 [place] [address] [facility] [address] [place] [address] Consulting Physician Pain Management 10/23/17 [place] [address] [address] Referring Physician General Surgery 01/26/18 [place] [address] [facility] [address] [place] [address] Consulting Physician Neurology 01/26/18 documented as of this encounter
--- OUTSIDE RECORDS SUMMARY | 2024-10-06 18:31 | XMS_ITS | Encounter Summary ---
Author Organization [facility] Address [address] [place] [address] Phone Care Team Providers Care Computed Tomography Technician Name Role Phone Justen Gale MD Primary Care Provider David Roberts APRN, OUTSOLE MOLDER Unavailable [phone] Annel Rod MD Unavailable Reason for Visit * Reason Onset Date Comments Advice Only 08/19/2024 Follow-up 08/19/2024 Encounter Details Date Type Department Care Team (Late st Contact Info) Description 08/19/2024 Telephone [facility] Medical [facility] - [facility] #2 [place] [address] Justen Gale MD #[address] [address] Advice Only; Follow-up Social History Tobacco Use Types Packs/Day Years Used Date Smoking Tobacco: Never Smokeless Tobacco: Never Alcohol Use Standard Drinks/Week Comments No 0 (1 standard drink = 0.6 oz pur e alcohol) [facility] Utilities Answer Date Recorded In the past [...] Questions 1-9 0 07/23 [facility] - Occupational Stress Questionnaire Answer Date Recorded [...] any time in the past 12 [facility], were you homeless or living in a prison (including now)? No 08/06/2024 Education Answer Date [...] visit * Telephone Encounter - Angelito Alegria, ELECTRIC LINEMAN, OUTSOLE MOLDER - 08/19/2024 9:04 AM CDT Forwarding * Telephone Encounter - Isaura Weiss RN - 08/19/2024 8:37 AM CDT Situation: Strep throat follow up Background: Patient contacting PCP office. Patient was seen in ED on 08/09 and 08/12 in [place] (records in chart). Diagnosed with strep. Assessment: [...] CDT Symptom: Sore Throat Outcome: Transfer to printed circuit board pcb designer queue Reason: Caller denied all higher acuity questions The caller accepted this outcome. Caller Denied: * Struggling for each breath (severe trouble breathing) * Can't swallow saliva (drooling) documented in this encounter Plan of Treatment Upcoming Encounters Date Type Department Care Team (Late st Contact Info) Description 10/22/2024 11:15 AM CDT Office Visit [facility] - Endocrinology - [place] #2 [place] [address] Annel Rod MD #[address] [address] 11/13/2024 2:00 PM CDT Appointment [facility] Cardiology Services 1 [place] [address] Angelito Alegria, ELECTRIC LINEMAN, OUTSOLE MOLDER #[address] [address] Discharge Disposition: Discharged to home or Selfcare documented as of this encounter Visit Diagnoses Not on filedocumented in this encounter Additional Health Concerns Assessment Noted Time PHQ-9 Depression Total Score: 0 08/02/19 25 1:09 PM CDT documented as of this encounter Care Teams Computed Tomography Technician Relationship Specialty Start Date End Date Justen Gale MD #2 [facility] [address] [place] [address] PCP - General Family Medicine 10/17/17 David Roberts APRN, OUTSOLE MOLDER #2 [place] [address] Nurse Practitioner Advanced Practice Nurse 01/31/22 Annel Rod MD #[address] [address] Consulting Physician Endocrinology 07/01/22 documented as of this encounter
--- OUTSIDE RECORDS SUMMARY | 2024-10-06 18:31 | XMS_ITS | Encounter Summary ---
Author Organization [facility] Address [address] [place] [address] Phone Care Team Providers Care Office Workforce Planner Name Role Phone Justen Gale MD Primary Care Provider David Roberts APRN, DIRECTOR INPATIENT HEADACHE PROGRAM Unavailable Annel Rod MD Unavailable Reason for Visit * Reason Comments Medication Refill Encounter Details Date Type Department Care Team (Late st Contact Info) Description 09/30/2023 Refill [facility]ology - [place] #2 [place] [address] Annel oRd MD #[address] [address] Medication Refill Social History Tobacco [...] Description 10/22/2024 11:15 AM CDT Office Visit [facility] #2 [place] [address] Annel Rod MD #[address] [address] 11/13/2024 2:00 PM CDT [facility] 1 [place] [address] Angelito Alegria APRN, NETTA #[address] [address] Discharge Disposition: Discharged to home or Selfcare documented as of this encounter Visit Diagnoses Not on filedocumented in this encounter Additional Health Concerns Infection Onset Date Last Indicated Resolved Time COVID - 19 08/01/2024 08/01/2024 08/01/2024 3:20 PM CDT Assessment Noted Time PHQ-9 Depression Total Score: 8 01/18/20 2:24 PM CDT documented as of this encounter Care Teams Office Workforce Planner Relationship Specialty Start Date End Date Justen Gale MD #[address] [place] [address] PCP - General Family Medicine 10/17/17 David Roberts APRN, DIRECTOR INPATIENT HEADACHE PROGRAM #2 [place] [address] Nurse Practitioner Advanced Practice Nurse 01/31/22 Annel Rod MD #[address] [address] Consulting Physician Endocrinology 07/01/22 documented as of this encounter
--- OUTSIDE RECORDS SUMMARY | 2024-10-06 18:31 | XMS_ITS | Encounter Summary ---
Author Organization [facility] Address [address] [place] [address] Phone Care Team Providers Care Staffing Director Name Role Phone Justen Gale MD Primary Care Provider David Roberts APRN, HOTEL HOUSEKEEPER Unavailable Annel Rod MD Unavailable Reason for Visit * Reason Comments Medication Refill Encounter Details Date Type Department Care Team (Late st Contact Info) Description 02/07/2023 Refill [facility] Family [facility] #2 [place] [address] Pili Elkins APRN, HOTEL HOUSEKEEPER #[address] [address] Medication Refill Social History [...] Office Visit [facility] - Endocrinology [facility] #2 [place] [address] Annel Rod MD #2 [facility] [address] [place] [address] 11/13/2024 2:00 PM CDT Appointment [facility] Cardiology Services 1 [place] [address] Angelito Alegria APRN, HOTEL HOUSEKEEPER #2 [facility] [address] [place] [address] Discharge Disposition: Discharged to home or Selfcare documented as of this encounter Visit Diagnoses Diagnosis Essential hypertension Unspecified essential hypertension documented in this encounter Additional Health Concerns Infection Onset Date Last Indicated Resolved Time COVID - 19 08/01/2024 08/01/2024 08/01/2024 3:20 PM CDT Assessment Noted Time PHQ-9 Depression Total Score: 8 01/18/20 2:24 PM CDT documented as of this encounter Care Teams Staffing Director Relationship Specialty Start Date End Date Justen Gale MD #2 [facility] [address] [place] [address] PCP - General Family Medicine 10/17/17 David Roberts APRN, HOTEL HOUSEKEEPER #2 [place] [address] Nurse Practitioner Advanced Practice Nurse 01/31/22 Annel Rod MD #2 [facility] [address] [place] [address] Consulting Physician Endocrinology 07/01/22 documented as of this encounter
--- OUTSIDE RECORDS SUMMARY | 2024-10-06 18:31 | XMS_ITS | Encounter Summary ---
Author Organization [facility] Address [address] [place] [address] Phone Care Team Providers Care Cooker Meal Name Role Phone Justen Gale MD Primary Care Provider [phone] David Roberts APRN, MACHINE ADJUSTER HELPER Unavailable [phone] Annel Rod MD Unavailable Reason for Visit * Reason Comments Medication Refill Encounter Details Date Type Department Care Team (Late st Contact Info) Description 04/13/2023 Refill [facility] - Endocrinology - [place] #2 [place] [address] Annel Rod MD #[address] [address] Medication Refill Social History [...] Jennifer Wang, RN - 04/14/2023 10:00 AM ACOUSTICAL CARPENTER Requested Prescriptions Pending Prescriptions Disp Refills ??? Continuous Blood Gluc Sensor (FreeStyle Eileen 2 Sensor) Misc [Pharmacy Med Name: FREESTYLE EILEEN 2 SENSOR] 6 Each 1 Sig: APPLY 1 SENSOR AND WEAR FOR 14 DAYS TO CHECK BLOOD SUGAR Next appt: 05/30/2023 STICAL CARPENTER documented in this encounter Plan of Treatment Upcoming Encounters Date Type Department Care Team (Late st Contact Info) Description 10/22/2024 11:15 AM CDT Office Visit [facility] - Endocrinology - [place] #2 [place] [address] Annel Rod MD #2 [facility] [address] [place] [address] 11/13/2024 2:00 PM CDT [facility] 1 [place] [address] Angelito Alegria, ZAMZAM, MACHINE ADJUSTER HELPER #2 [facility] [address] [place] [address] Discharge Disposition: Discharged to home or Selfcare documented as of this encounter Visit Diagnoses Not on filedocumented in this encounter Additional Health Concerns Infection Onset Date Last Indicated Resolved Time COVID - 19 08/01/2024 08/01/2024 08/01/2024 3:20 PM CDT Assessment Noted Time PHQ-9 Depression Total Score: 8 01/18/20 2:24 PM CDT documented as of this encounter Care Teams Cooker Meal Relationship Specialty Start Date End Date Justen Gale MD #2 [facility] [address] [place] [address] PCP - General Family Medicine 10/17/17 David Roberts APRN, MACHINE ADJUSTER HELPER #2 [place] [address] Nurse Practitioner Advanced Practice Nurse 01/31/22 Annel Rod MD #[address] [address] Consulting Physician Endocrinology 07/01/22 documented as of this encounter
--- OUTSIDE RECORDS SUMMARY | 2024-10-06 18:31 | XMS_ITS | Encounter Summary ---
Author Organization [facility] Address [address] [place] [address] Phone Care Team Providers Care Indoor Landscaper/Gardener Name Role Phone Justen Gale MD Primary Care Provider [phone] David Roberts APRN, MISSILE TECHNICIAN Unavailable [phone] Annel Rod MD Unavailable Reason for Visit * Reason Onset Date Comments Pain 09/23/2024 Encounter Details Date Type Department Care Team (Late st Contact Info) Description 09/23/2024 Telephone [facility] [address] [place] [address] Justen Gale MD #[address] [address] Pain Social History Tobacco Use Types Packs/Day Years Used Date Smoking Tobacco: Never Smokeless Tobacco: Never Alcohol Use Standard Drinks/Week Comments No 0 (1 standard drink = 0.6 oz pur e alcohol) [facility] Utilities Answer Date Recorded In the past 12 months has [employer], gas, oil, or water company threatened [...] How often do you attend chur or pentecostal services? More than 4 times per year 08/06/2024 Do you belong to any clubs o r organizations such as zoroastrianism groups, unions, fraternal or athletic groups, or [...] - patient has RA Outcome: Transfer to video production intern queue Reason: Caller denied all higher acuity [...] - Endocrinology [facility] #2 [place] [address] Annel Rod MD #2 [facility] [address] [place] [address] 11/13/2024 2:00 PM CDT [facility] 1 [place] [address] Angelito Alegria APRN, MISSILE TECHNICIAN #2 [facility] [address] [place] [address] Discharge Disposition: Discharged to home or Selfcare documented as of this encounter Visit Diagnoses Not on filedocumented in this encounter Additional Health Concerns Assessment Noted Time PHQ-9 Depression Total Score: 0 08/02/19 25 1:09 PM CDT documented as of this encounter Care Teams Indoor Landscaper/Gardener Relationship Specialty Start Date End Date Justen Gale MD #2 [facility] [address] [place] [address] PCP - General Family Medicine 10/17/17 David Roberts APRN, MISSILE TECHNICIAN #2 [place] [address] Nurse Practitioner Advanced Practice Nurse 01/31/22 Annel Rod MD #2 [facility] [address] [place] [address] Consulting Physician Endocrinology 07/01/22 documented as of this encounter
--- OUTSIDE RECORDS SUMMARY | 2024-10-06 19:02 | XMS_ITS | Encounter Summary ---
Author Organization [facility] Address [address] [place] [address] Phone Care Team Providers Care Trust Manager Assistant Name Role Phone Justen Gale MD Primary Care Provider [phone] David Roberts APRN, INFORMATICA ARCHITECT Unavailable [phone] Annel Rod MD Unavailable Reason for Visit * Reason Onset Date Comments Medication Refill 08/06/2020 Encounter Details Date Type Department Care Team (Late st Contact Info) Description 08/06/2020 Refill [facility] - Family [facility] #2 [facility] [place] [address] Justen Gale MD #[address] [address] Medication Refill Social History Tobacco Use Types [...] Outpatient Visits 2 weeks ago [facility] Mueller APN, INFORMATICA ARCHITECT 2 months ago Increased urinary [facility] Pili Mueller APN, INFORMATICA ARCHITECT 5 months ago Urinary [facility] Pili Mueller APN, INFORMATICA ARCHITECT 8 months ago Type 2 diabetes mellitus with diabetic polyneuropathy, with long- term current use of insulin (HCC) [facility] Pili Mueller APN, INFORMATICA ARCHITECT 9 months ago Nausea [facility] Justen Urbano MD Upcoming Appointments Future Appointments In 6 days Pili Elkins APN, INFORMATICA ARCHITECT [facility] JUNIOR ESTIMATOR - Recent and Past Visits Recent Visits Date Type Provider Dept 07/20/20 Office Visit Pili Elkins APN, INFORMATICA ARCHITECT [facility] 06/05/20 Office Visit Pili Elkins APN, NETTA [facility] 02/17/20 Office Visit Pili Elkins APN, NETTA [facility] 12/03/19 Office Visit Pili Elkins APN, NETTA [facility] 11/05/19 Telemedicine Justen Gale MD [facility] 07/25/19 Telemedicine [facility] recent visits within past 460 days with a meds authorizing provider and meeting all other requirements Future Appointments Date Type Provider Dept 08/12/20 Appointment Pili Elkins APN, CNP [facility] Showing future appointments within next 90 days [...] Description 10/22/2024 11:15 AM CDT Office Visit [facility] - End[facility]ology - [place] #2 [place] [address] Annel Rod MD #[address] [address] 11/13/2024 2:00 PM CDT Appointment [facility] Cardiology Services 1 [place] [address] Angelito Alegria ASSET MANAGER, INFORMATICA ARCHITECT #2 [facility] [address] [place] [address] Discharge Disposition: Discharged to home or Selfcare documented as of this encounter Visit Diagnoses Not on filedocumented in this encounter Additional Health Concerns Infection Onset Date Last Indicated Resolved Time COVID - 19 08/01/2024 08/01/2024 08/01/2024 3:20 PM CDT Assessment Noted Time PHQ-9 Depression Total Score: 0 07/21/19 3:00 PM CDT documented as of this encounter Care Teams Trust Manager Assistant Relationship Specialty Start Date End Date Justen Gale MD #[address] [address] PCP - General Family Medicine 10/17/17 David Roberts APRN, INFORMATICA ARCHITECT #2 [place] [address] Nurse Practitioner Advanced Practice Nurse 01/31/22 Annel Rod MD #[address] [address] Consulting Physician Endocrinology 07/01/22 documented as of this encounter
--- OUTSIDE RECORDS SUMMARY | 2024-10-06 19:02 | XMS_ITS | Encounter Summary ---
Author Organization [facility] Address [address] [place] [address] Phone Care Team Providers Care .Net Architect Name Role Phone Justen Gale MD Primary Care Provider David Roberts APRN, MANAGER CT Unavailable [phone] Annel Rod MD Unavailable Reason for Visit * Reason Onset Date Comments Sore Throat 06/29/2020 Encounter Details Date Type Department Care Team (Late st Contact Info) Description 06/29/2020 Telephone [facility] #2 [place] [address] Justen Gale MD #[address] [address] Sore Throat Social History Tobacco Use Types [...] COVID-19? No / Unsure 06/29/2020 8:43 AM POLICE OFFICER documented as of this encounter Miscellaneous Notes * Telephone Encounter - Gail Lucero RN - 06/29/2020 3:53 PM CST Attempted to call mailbox is full. Pt does not need testing CE OFFICER * Telephone Encounter - Vince Hermosillo MD - 06/29/2020 3:13 PM CST No covid testing needed. If the er thought that it was warranted then they would have done this. CE OFFICER * Telephone Encounter - Marlys Sorensen RN - 06/29/2020 8:36 AM CST Patient calling. Patient is calling to schedule Hospital/ED/Prompt-Care follow up appointment. Hospital/ED/Prompt-Care Site: [facility] ED Records Requested: Yes Reason [...] f/up and yearly PAP appointments? Please advise. CE OFFICER documented in this encounter Plan of Treatment Upcoming Encounters Date Type Department Care Team (Late st Contact Info) Description 10/22/2024 11:15 AM CDT Office Visit [facility] - Endocrinology - [place] #2 [place] [address] Annel Rod MD #2 [facility] [address] [place] [address] 11/13/2024 2:00 PM CDT [facility] 1 [place] [address] Angelito Alegria, FORTUNE TELLER, MANAGER CT #2 [facility] [address] [place] [address] Discharge Disposition: Discharged to home or Selfcare documented as of this encounter Visit Diagnoses Not on filedocumented in this encounter Additional Health Concerns Infection Onset Date Last Indicated Resolved Time COVID - 19 08/01/2024 08/01/2024 08/01/2024 3:20 PM CDT Assessment Noted Time PHQ-9 Depression Total Score: 0 09/08/19 19 1:00 PM CDT documented as of this encounter Care Teams .Net Architect Relationship Specialty Start Date End Date Justen Gale MD #2 [facility] [address] [place] [address] PCP - General Family Medicine 10/17/17 David Roberts APRN, MANAGER CT #2 [place] [address] Nurse Practitioner Advanced Practice Nurse 01/31/22 Annel Rod MD #2 [facility] [address] [place] [address] Consulting Physician Endocrinology 07/01/22 documented as of this encounter
--- OUTSIDE RECORDS SUMMARY | 2024-10-06 19:02 | XMS_ITS | Clinical Summary ---
Author Organization [facility] Address [address] [place] [address] Care Team Providers Care Glaze Supervisor Name Role Phone Liu Jerez MD Unavailable [phone] Albert Corbin MD Unavailable [phone] Justen Gale MD Primary Care Provider Khris Arthur MD Unavailable [phone] Ko Melendez MD Unavailable [phone] John Paul Moyer MD Unavailable [phone] Annel Rod MD Unavailable Anali MARSHALL MD, [...] 05/22/2024 Assessment & Plan (05/26/2024 10:08 AM EQUIPMENT SALES SPECIALIST): Presenting with urinary symptoms of right flank [...] 05/22/2024 Assessment & Plan (05/25/2024 7:52 AM EQUIPMENT SALES SPECIALIST): Hx of breast cancer c/b DVT/bilateral Pes [...] 05/22/2024 Assessment & Plan (05/22/2024 1:14 PM EQUIPMENT SALES SPECIALIST): -long-standing chronic back pain -CT L spine [...] 09/12/2021 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) 2021 electronic device monitor (current) use 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 inhibitors 10/17/2019 Thyroid [...] complication, without long-term current use of insulin ([facility]) 10/23/2017 Assessment & Plan [...] 10/13/2017 Assessment & Plan (05/22/2024 12:29 PM EQUIPMENT SALES SPECIALIST): -Hx stage II, ER positive, HER2 negative [...] 08/01/2017 Assessment & Plan (05/22/2024 12:33 PM EQUIPMENT SALES SPECIALIST): -Hx LUL -Hospital provided CPAP ordered History of DVT (deep vein thrombosis) 08/01/2017 History of pulmonary embolism 08/01/2017 Generalized weakness 07/27/2017 Dyspnea 07/27/2017 Unintentional weight loss 07/27/2017 Acute cystitis without hematuria 07/27/2017 Nausea and vomiting 07/26/2017 Overview (07/28/2017): Added automatically from request for surgery [id number] Pulmonary embolism 08/09/2016 Assessment & Plan (10/23/2017 2:05 AM CDT): On Rivaroxaban Lymphedema of left upper extremity 08/09/2016 Assessment & Plan (05/25/2024 7:53 AM EQUIPMENT SALES SPECIALIST): S/p L axillary lymph node dissection 2014, [...] syndrome Assessment & Plan (05/22/2024 11:18 AM EQUIPMENT SALES SPECIALIST): -continue home Requip 5mg nightly Pain of lower extremity 03/12/2013 Overview (07/29/2016): Leg pain Essential hypertension Assessment & Plan (05/23/2024 10:42 AM EQUIPMENT SALES SPECIALIST): -Chart history of HTN but not on meds -BP elevated on admission, likely some pain contributing -Monitor closely once pain under adequate control, discussed following up with PCP for this Chronic anticoagulation Restless leg syndrome 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 Type 2 diabetes mellitus without complication Assessment & Plan (05/24/2024 1:39 PM EQUIPMENT SALES SPECIALIST): -Last Ha1c 8.4 in 2023, repeat 8.7 [...] drink = 0.6 oz pur e alcohol) [facility] [employer] Answer Date Recorded In the past 12 months has [employer], gas, oil, or water [employer] threatened to shut off services in your [...] often do you attend chur ch or church services? More than 4 times per year 05/24/2024 Do you belong to any clubs o r organizations such as pentecostal groups, unions, fraternal or athletic groups, or [...] in a long-term (including now)? No 08/15/2023 Housing Stability Vital Sign Answer [place] e Recorded In the last 12 months, was t here a time when you were not able to pay the mortgage or rent on time? No 05/24/2024 In the past 12 months, how m any times have you moved where you were living? 0 05/24/2024 At any time in the past 12 m [facility], were you homeless or living in a long-term (including now)? No 05/24/2024 Personal Safety Answer Date Recorded Have you ever been in or are you currently in a harmful physical or emotional relationship or is someone making you feel afraid or unsafe? Denies 07/01/2024 Comments No Sex and Gender Information Value Date Recorded Sex Assigned at Not on file Legal Sex Female 12:24 AM EQUIPMENT SALES SPECIALIST Gender Identity Not on file [...] CDT HEMOGLOBIN A1C STAT 05/21/2024 4:20 PM EQUIPMENT SALES SPECIALIST LIPID PANEL STAT 05/21/2024 4:20 PM EQUIPMENT SALES SPECIALIST DEXA AXIAL SKELETON BONE DENSITY 1 OR [...] reviewed 2021. Testing performed by: [facility], [address] [place] [address]., [address] Blood 07/01/2024 2:02 PM CDT 07/01/2024 2:12 PM CDT us Ilana Stevens MD LAB BLOOD ORDERABLES F inal Result Performing Organization Address [facility]/ZIP Co de Phone Number [place] [id number] [facility] [place] [address] * (ABNORMAL) Hemoglobin A1c (05/21/2024 4:20 PM EQUIPMENT SALES SPECIALIST) [facility] Hgb A1C 8.7(H) 4.0 - 5.6 % Estimated Average Glucose 203 mg/dL [facility] Comment: The ADA recommends reporting an estimated Average Glucose (eAG) with all Hemoglobin A1c results using the equation derived from a study of 507 normal and diabetic adults. Minority populations were underrepresented and children were not included. (Diabetes Care 2020; 43(S1): S66-S76). The eAG is not equivalent to a fasting glucose. Blood 05/21/2024 4:20 PM EQUIPMENT SALES SPECIALIST 05/21/2024 4:55 PM EQUIPMENT SALES SPECIALIST us Leo Henry MD LAB BLOOD ORDERABLES Final Result [facility] [place] [address] * (ABNORMAL) Lipid panel (05/21/2024 4:20 PM EQUIPMENT SALES SPECIALIST) Cholesterol 205(H) 30 - 199 mg/dL Comment: [...] 2017. Triglycerides 92 <=149 mg/dL [facility] Comment: Interpretive Data Ages < or [...] 2017. HDL 55 >=40 mg/dL [facility] Comment: Interpretive Data Ages < or [...] LDL, calculated 134(H) <=129 mg/dL [facility] Comment: Interpretive Data Ages < or [...] revised on 2023. Non-HDL Cholesterol 150 mg/dL [facility] Comment: Interpretive Data Ages < [...] last revised on 2017. Chol/HDL ratio 4 [facility] Blood 05/21/2024 4:20 PM EQUIPMENT SALES SPECIALIST 05/21/2024 4:50 PM EQUIPMENT SALES SPECIALIST Narrative [facility] - 05/22/2024 4:17 PM EQUIPMENT SALES SPECIALIST Reflex us Leo Henry MD LAB BLOOD ORDERABLES Final Result [facility] [place] [address] * Dexa Axial Skeleton Bone Density 1 or 2 Site (08/02/2022 10:53 AM CDT) Anatomical Region Laterality Modality Body N/A Radiographic Lizeth ging Narrative 08/02/2022 3:34 PM CDT Patient Name: Karly Marques Date of : 1955 Date of scan: 08/02/2022 Bone mineral density was performed on a [employer] Discovery Densitometer. Based on machine cross-calibration and [...] bone mineral density scan were prepared by Yesneia Hernandez) MARY who is accredited by the International Society of Clinical Densitometry. The overall patient assessment and scan interpretation were performed by Kaylie Castro MD who is certified by the International Society of Clinical Densitometry. [id number] us Khris Arthur MD IMG DXA PROCEDURES [...] agrees with it. ACC# Date Time Exam [id number] Aug 19, 2016 14:27:00 [facility] [address] [employer] CAD, unilat L Technologist(s): Carla Harris; ; [id number] Aug 19, 2016 15:39:00 [facility] [address] Breast US unilateral, ltd L ACC# Date Time Exam [id number] Aug 19, 2016 14:27:00 [facility] [address] [employer] CAD, unilat L Technologist(s): Carla Harris; ; [id number] Aug 19, 2016 15:39:00 [facility] [address] Breast US unilateral, ltd L EXAMINATION: LEFT [...] SARABIA M.D. on Aug 19 2016 4:20P [id number] Procedure Note Miscellaneous, Not In File / Provider, MD Tyler - 09/17/2016 Avery DOYLE M.D. FINAL REPORT The radiology attending physician has personally reviewed this study, and has reviewed and/or edited this written report and agrees with it. ACC# Date Time Exam [id number] Aug 19, 2016 14:27:00 [facility] [address] [employer] CAD, unilat L Technologist(s): Carla Harris; ; [id number] Aug 19, 2016 15:39:00 [facility] [address] Breast US unilateral, ltd L ACC# Date Time Exam [id number] Aug 19, 2016 14:27:00 [facility] [address] [employer]ag [employer] CAD, unilat L Technologist(s): Carla Harris; ; [id number] Aug 19, 2016 15:39:00 [facility] [address] Breast US unilateral, ltd L EXAMINATION: LEFT [...] SARABIA M.D. on Aug 19 2016 4:20P [id number] us Not In File Miscellaneous IMG MAMMO PROCEDURES F inal Result from Last 3 Months or Most Recently Relevant to Health Maintenance Insurance IDPA UHC MEDICARE ADVANTAGE UHC MEDICARE ADVANTAGE UHC MEDICARE ADVANTAGE Advance Directives For more information, please contact: [phone] Documents on File Type Date Recorded Patient Mock Up Assembler Expl anation ADVANCE DIRECTIVE 12/23/2021 2:49 PM Power of Inclinometer Tester-Medical ADVANCE DIRECTIVE 12/23/2021 2:49 PM Living Will [...] File Name Relationship Healthcare Agent [facility] Communication Yunior Marques Daughter Health Care Agent Jimmie Marques Spouse First Alternate Health Care Agent Care Teams Glaze Supervisor Relationship Specialty Start Date End Date Justen Gale MD 2 [facility] [address] [place] [address] PCP - General 10/09/17 Liu Jerez MD Consulting Physician Gastroenterology 07/28/17 [place] [address] [facility] [address] [place] [address] Consulting Physician Pulmonary Disease 08/03/17 [place] [address] [place] [address] [address] [place] [address] Medical Oncologist/Cardiovascular Invasive Specialist Medical Oncology 10/23/17 [place] [address] [facility] [address] [place] [address] Surgeon Orthopedic Surgery 10/23/17 [place] [address] [address] Consulting Physician Pain Management 10/23/17 [place] [address] [address] Referring Physician General Surgery 01/26/18 [place] [address] [facility] [address] [place] [address] Consulting Physician Neurology 01/26/18
--- OUTSIDE RECORDS SUMMARY | 2024-10-06 19:02 | XMS_ITS | Referral Summary ---
Author Organization [facility] Address [address] [place] [address] Care Team Providers Care Jack Strip Assembler Name Role Phone Liu Jerez MD Unavailable [phone] Albert Corbin MD Unavailable Justen Gale MD Primary Care Provider Khris Arthur MD Unavailable [phone] Ko Melendez MD Unavailable John Paul Moyer [...] 05/22/2024 Assessment & Plan (05/26/2024 10:08 AM ASSURANCE ASSISTANT): Presenting with urinary symptoms of right [...] 05/22/2024 Assessment & Plan (05/25/2024 7:52 AM ASSURANCE ASSISTANT): Hx of breast cancer c/b DVT/bilateral [...] 05/22/2024 Assessment & Plan (05/22/2024 1:14 PM ASSURANCE ASSISTANT): -long-standing chronic back pain -CT L [...] 09/12/2021 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) 2021 director long term care (current) use of [...] long-term current use of insulin ([facility]) 10/23/2017 Assessment & Plan (10/23/2017 2:06 AM [...] 10/13/2017 Assessment & Plan (05/22/2024 12:29 PM ASSURANCE ASSISTANT): -Hx stage II, ER positive, HER2 [...] 08/01/2017 Assessment & Plan (05/22/2024 12:33 PM ASSURANCE ASSISTANT): -Hx LUL -Hospital provided CPAP ordered History of DVT (deep vein thrombosis) 08/01/2017 History of pulmonary embolism 08/01/2017 Generalized weakness 07/27/2017 Dyspnea 07/27/2017 Unintentional weight loss 07/27/2017 Acute cystitis without hematuria 07/27/2017 Nausea and vomiting 07/26/2017 Overview (07/28/2017): Added automatically from request for surgery [id number] Pulmonary embolism 08/09/2016 Assessment & Plan (10/23/2017 2:05 AM CDT): On Rivaroxaban Lymphedema of left upper extremity 08/09/2016 Assessment & Plan (05/25/2024 7:53 AM ASSURANCE ASSISTANT): S/p L axillary lymph node dissection [...] syndrome Assessment & Plan (05/22/2024 11:18 AM ASSURANCE ASSISTANT): -continue home Requip 5mg nightly Pain of lower extremity 03/12/2013 Overview (07/29/2016): Leg pain Essential hypertension Assessment & Plan (05/23/2024 10:42 AM ASSURANCE ASSISTANT): -Chart history of HTN but not on meds -BP elevated on admission, likely some pain contributing -Monitor closely once pain under adequate control, discussed following up with PCP for this Chronic anticoagulation Restless leg syndrome 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 More than 4 times per year 05/24/2024 Do you belong to any clubs o r organizations such as orthodox groups, unions, fraternal or athletic groups, [...] in a mcc (including now)? No 08/15/2023 Housing Stability Vital Sign Answer [place] e Recorded In the last 12 months, was t here a time when you were not able to pay the mortgage or rent on time? No 05/24/2024 In the past 12 months, how m any times have you moved where you were living? 0 05/24/2024 At any time in the past 12 m [facility], were you homeless or living in a mcc (including now)? No 05/24/2024 Personal Safety Answer Date Recorded Have you ever been in or are you currently in a harmful physical or emotional relationship or is someone making you feel afraid or unsafe? Denies 07/01/2024 Comments No Sex and Gender Information Value Date Recorded Sex Assigned at Not on file Legal Sex Female 12:24 AM ASSURANCE ASSISTANT Gender Identity Not on file Sexual [...] CDT HEMOGLOBIN A1C STAT 05/21/2024 4:20 PM ASSURANCE ASSISTANT LIPID PANEL STAT 05/21/2024 4:20 PM ASSURANCE ASSISTANT DEXA AXIAL SKELETON BONE DENSITY 1 [...] reviewed 2021. Testing performed by: [facility], [address] [place] [address]., [id number] Blood 07/01/2024 2:02 PM CDT 07/01/2024 2:12 PM CDT us Ilana Stevens MD LAB BLOOD ORDERABLES F inal Result [facility] [address] [facility] [place] [address] * (ABNORMAL) Hemoglobin A1c (05/21/2024 4:20 PM ASSURANCE ASSISTANT) Hgb A1C 8.7(H) 4.0 - 5.6 % Estimated Average Glucose 203 mg/dL [facility] Comment: The ADA recommends reporting an estimated Average Glucose (eAG) with all Hemoglobin A1c results using the equation derived from a study of 507 normal and diabetic adults. Minority populations were underrepresented and children were not included. (Diabetes Care 2020; 43(S1): S66-S76). The eAG is not equivalent to a fasting glucose. Blood 05/21/2024 4:20 PM ASSURANCE ASSISTANT 05/21/2024 4:55 PM ASSURANCE ASSISTANT us Leo Henry MD LAB BLOOD ORDERABLES Final Result [facility] Department [place] [address] * (ABNORMAL) Lipid panel (05/21/2024 4:20 PM ASSURANCE ASSISTANT) Cholesterol 205(H) 30 - 199 mg/dL [...] revised on 2017. Triglycerides 92 <=149 mg/dL [facility] Comment: Interpretive Data Ages < or [...] 2017. HDL 55 >=40 mg/dL [facility] Comment: Interpretive Data Ages < [...] LDL, calculated 134(H) <=129 mg/dL [facility] Comment: Interpretive Data Ages < [...] 2023. Non-HDL Cholesterol 150 mg/dL [facility] Comment: Interpretive Data Ages < [...] last revised on 2017. Chol/HDL ratio 4 [facility] Blood 05/21/2024 4:20 PM ASSURANCE ASSISTANT 05/21/2024 4:50 PM ASSURANCE ASSISTANT Narrative [facility] - 05/22/2024 4:17 PM ASSURANCE ASSISTANT Reflex us Leo Henry MD LAB BLOOD ORDERABLES Final Result [facility] Department [place] [address] * Dexa Axial Skeleton Bone Density 1 or 2 Site (08/02/2022 10:53 AM CDT) Anatomical Region Laterality Modality Body N/A Radiographic Lizeth ging Narrative 08/02/2022 3:34 PM CDT Patient Name: Karly Marques Date of : 1955 Date of scan: 08/02/2022 Bone mineral density was performed on a HoloTRA Discovery Densitometer. Based on machine cross-calibration and [...] by the International Society of Clinical Densitometry. [id number] Khris Arthur MD [facility] – [...] this written report and agrees with it. [facility]# Date Time Exam [id number] Aug 19, 2016 14:27:00 [facility] [id number] Diag Mamm, inc CAD, unilat L Technologist(s): Carla Harris; ; [id number] Aug 19, 2016 15:39:00 [facility] [id number] Breast US unilateral, ltd L ACC# Date Time Exam [id number] Aug 19, 2016 14:27:00 [facility] [id number] Diag Mamm, inc CAD, unilat L Technologist(s): Carla Harris; ; [id number] Aug 19, 2016 15:39:00 [facility] [id number] Breast US unilateral, ltd L EXAMINATION: LEFT [...] SARABIA M.D. on Aug 19 2016 4:20P [id number] Procedure Note Miscellaneous, Not In File / Provider, Historical, MD - 09/17/2016 ANTHONY SARABIA M.D. JUDY RINCON M.D. FINAL REPORT The radiology attending physician has personally reviewed this study, and has reviewed and/or edited this written report and agrees with it. [facility]# Date Time Exam [id number] Aug 19, 2016 14:27:00 [facility] [id number] Diag Mamm, inc CAD, unilat L Technologist(s): Carla Harris; ; [id number] Aug 19, 2016 15:39:00 [facility] [id number] Breast US unilateral, ltd L ACC# Date Time Exam [id number] Aug 19, 2016 14:27:00 [facility] [id number] Diag Mamm, inc CAD, unilat L Technologist(s): Carla Harris; ; [id number] Aug 19, 2016 15:39:00 C [id number] Breast US unilateral, ltd L EXAMINATION: LEFT [...] SARABIA M.D. on Aug 19 2016 4:20P [id number] us Not In File Miscellaneous IMG MAMMO PROCEDURES F inal Result from Last 3 Months or Most Recently Relevant to Health Maintenance Insurance [facility] MEDICARE ADVANTAGE [facility] MEDICARE ADVANTAGE [facility] MEDICARE Address: [address] [address] [place] [address] [employer] MEDICARE ADVANTAGE Advance Directives For more information, please contact: [phone] Documents on File Type Date Recorded Patient Superintendent Communications Expl anation ADVANCE DIRECTIVE 12/23/2021 2:49 PM Power of [employer] ADVANCE DIRECTIVE 12/23/2021 2:49 PM Living Will [...] First Alternate Health Care Agent Care Teams Jack Strip Assembler Relationship Specialty Start Date End Date Justen Gale MD 2 [facility] [address] [place] [address] PCP - General 10/09/17 Liu Jerez MD Consulting Physician Gastroenterology 07/28/17 [place] [address] [facility] [address] [place] [address] Consulting Physician Pulmonary Disease 08/03/17 Khris Arthur MD [address] [facility] [address] [place] [address] Medical Oncologist/Pulp Roller Medical Oncology 10/23/17 [place] [address] [facility] [address] [place] [address] Surgeon Orthopedic Surgery 10/23/17 [place] [address] [facility] [address] [place] [address] Consulting Physician Pain Management 10/23/17 [place] [address] [facility] [address] [place] [address] Referring Physician General Surgery 01/26/18 [place] [address] [facility] [address] [place] [address] Consulting Physician Neurology 01/26/18
--- OUTSIDE RECORDS SUMMARY | 2024-10-06 19:02 | XMS_ITS | Encounter Summary ---
Author Organization [facility] Address [address] [place] [address] Phone Care Team Providers Care Family Service Aide Name Role Phone Justen Gale MD Primary Care Provider David Roberts APRN, HEDIS SPECIALIST Unavailable [phone] Annel Rod MD Unavailable Reason for Visit * Reason Comments Medication Refill Encounter Details Date Type Department Care Team (Late st Contact Info) Description 02/07/2020 Refill [facility] [address] [place] [address] Justen Gale MD #[address] [address] Medication Refill Social History Tobacco Use Types [...] Visit [facility] - [place] #2 [place] [address] Annel Rod MD #[address] [address] 11/13/2024 2:00 PM CDT [facility] 1 [place] [address] Angelito Alegria APRN, HEDIS SPECIALIST #2 [facility] [address] [place] [address] Discharge Disposition: Discharged to home or Selfcare documented as of this encounter Visit Diagnoses Not on filedocumented in this encounter Additional Health Concerns Infection Onset Date Last Indicated Resolved Time COVID - 19 08/01/2024 08/01/2024 08/01/2024 3:20 PM CDT Assessment Noted Time PHQ-9 Depression Total Score: 0 09/08/19 1:00 PM CDT documented as of this encounter Care Teams Family Service Aide Relationship Specialty Start Date End Date Justen Gale MD #[address] [address] PCP - General Family Medicine 10/17/17 David Roberts APRN, NETTA #2 [facility] [address] Nurse Practitioner Advanced Practice Nurse 01/31/22 Annel Rod MD #[address] [address] Consulting Physician Endocrinology 07/01/22 documented as of this encounter
--- OUTSIDE RECORDS SUMMARY | 2024-10-06 19:02 | XMS_ITS ---
Author Organization [facility] Address [address] [place] [address] Care Team Providers Care Administrative Assistant Name Role Phone Liu Jerez MD Unavailable [phone] Albert Corbin MD Unavailable Justen Gale MD Primary Care Provider Khris Arthur MD Unavailable [phone] Ko Melendez MD Unavailable [phone] John Paul Moyer MD Unavailable Annel Rod MD Unavailable Anali MARSHALL MD, Carlos M. Unavailable [phone] Active Problems Problem Noted Date Diagnosed Date Urinary tract infection 05/22/2024 Assessment & Plan (05/26/2024 10:08 AM PAPER SALES MANAGER): Presenting with urinary symptoms of right [...] 05/22/2024 Assessment & Plan (05/25/2024 7:52 AM PAPER SALES MANAGER): Hx of breast cancer c/b DVT/bilateral [...] 05/22/2024 Assessment & Plan (05/22/2024 1:14 PM PAPER SALES MANAGER): -long-standing chronic back pain -CT L [...] of insulin ([facility]) 10/23/2017 Assessment & Plan (10/23/2017 2:06 AM [...] 10/13/2017 Assessment & Plan (05/22/2024 12:29 PM PAPER SALES MANAGER): -Hx stage II, ER positive, HER2 [...] 08/01/2017 Assessment & Plan (05/22/2024 12:33 PM PAPER SALES MANAGER): -Hx LUL -Hospital provided CPAP ordered History of DVT (deep vein thrombosis) 08/01/2017 History of pulmonary embolism 08/01/2017 Generalized weakness 07/27/2017 Dyspnea 07/27/2017 Unintentional weight loss 07/27/2017 Acute cystitis without hematuria 07/27/2017 Nausea and vomiting 07/26/2017 Overview (07/28/2017): Added automatically from request for surgery [id number] Pulmonary embolism 08/09/2016 Assessment & Plan (10/23/2017 2:05 AM CDT): On Rivaroxaban Lymphedema of left upper extremity 08/09/2016 Assessment & Plan (05/25/2024 7:53 AM PAPER SALES MANAGER): S/p L axillary lymph node dissection [...] syndrome Assessment & Plan (05/22/2024 11:18 AM PAPER SALES MANAGER): -continue home Requip 5mg nightly Pain of lower extremity 03/12/2013 Overview (07/29/2016): Leg pain Essential hypertension Assessment & Plan (05/23/2024 10:42 AM PAPER SALES MANAGER): -Chart history of HTN but not on meds -BP elevated on admission, likely some pain contributing -Monitor closely once pain under adequate control, discussed following up with PCP for this Chronic anticoagulation Restless leg syndrome 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
--- OUTSIDE RECORDS SUMMARY | 2024-10-06 19:02 | XMS_ITS | Encounter Summary ---
Author Organization [facility] Address [address] [place] [address] Phone Care Team Providers Care Inspector Timers Name Role Phone Justen Gale MD Primary Care Provider David Roberts APRN, MANAGER GROUP Unavailable Annel Rod MD Unavailable Reason for Visit * Reason Comments Medication Refill Encounter Details Date Type Department Care Team (Late st Contact Info) Description 02/17/2021 Refill [facility] #2 [place] [id number] Justen Gale MD #[address] [address] Medication Refill Social History Tobacco Use Types [...] Mcgee 06/05/20 Office Visit Pili Elkins APRN, MANAGER GROUP [facility] Showing recent visits within past 365 days and meeting all other requirements Future Appointments Date Type Provider Dept 03/02/21 Appointment Vince Hermosillo MD [facility] Showing future appointments within next 90 days and meeting all other requirements documented in this encounter Plan of Treatment Upcoming Encounters Date Type Department Care Team (Late st Contact Info) Description 10/22/2024 11:15 AM CDT Office Visit [facility] #2 [place] [address] Annel Rod MD #2 [facility] [address] [place] [address] 11/13/2024 2:00 PM CDT Appointment [facility] Cardiology Services 1 [place] [address] Angelito Alegria, FRESH WORK INSPECTOR, MANAGER GROUP #2 [facility] [address] [place] [address] Discharge Disposition: Discharged to home or Selfcare documented as of this encounter Visit Diagnoses Not on filedocumented in this encounter Additional Health Concerns Infection Onset Date Last Indicated Resolved Time COVID - 19 08/01/2024 08/01/2024 08/01/2024 3:20 PM CDT Assessment Noted Time PHQ-9 Depression Total Score: 0 07/21/19 3:00 PM CDT documented as of this encounter Care Teams Inspector Timers Relationship Specialty Start Date End Date Justen Gale MD #[address] [address] PCP - General Family Medicine 10/17/17 David Roberts FRESH WORK INSPECTOR, MANAGER GROUP #2 [place] [address] Nurse Practitioner Advanced Practice Nurse 01/31/22 Annel Rod MD #[address] [address] Consulting Physician Endocrinology 07/01/22 documented as of this encounter
--- OUTSIDE RECORDS SUMMARY | 2024-10-06 19:02 | XMS_ITS | Encounter Summary ---
Author Organization [facility] Address [address] [place] [address] Phone Care Team Providers Care Expediter Clerk Name Role Phone Justen Gale MD Primary Care Provider David Roberts APRN, SECURITY ASSURANCE ANALYST Unavailable [phone] Annel Rod MD Unavailable Reason for Visit * Reason Comments Medication Refill Encounter Details Date Type Department Care Team (Late st Contact Info) Description 03/13/2021 Refill [facility] [address] [place] [address] Justen Gale MD #[address] [address] Medication Refill Social History Tobacco [...] COVID-19? No / Unsure 03/02/2021 5:05 PM PERCUSSION TEACHER documented as of this encounter Plan of Treatment Upcoming Encounters Date Type Department Care Team (Late st Contact Info) Description 10/22/2024 11:15 AM CDT Office Visit [facility] #2 [place] [address] Annel Rod MD #2 [facility] [address] [place] [address] 11/13/2024 2:00 PM CDT [facility] 1 [place] [address] Angelito Alegria, JOWL TRIMMER, SECURITY ASSURANCE ANALYST #2 [facility] [address] [place] [address] Discharge Disposition: Discharged to home or Selfcare documented as of this encounter Visit Diagnoses Not on filedocumented in this encounter Additional Health Concerns Infection Onset Date Last Indicated Resolved Time COVID - 19 08/01/2024 08/01/2024 08/01/2024 3:20 PM CDT Assessment Noted Time PHQ-9 Depression Total Score: 0 07/21/19 3:00 PM CDT documented as of this encounter Care Teams Expediter Clerk Relationship Specialty Start Date End Date Justen Gale MD #[address] [address] PCP - General Family Medicine 10/17/17 David Roberts APRN, SECURITY ASSURANCE ANALYST #2 [place] [address] Nurse Practitioner Advanced Practice Nurse 01/31/22 Annel Rod MD #2 [place] [id number] Consulting Physician Endocrinology 07/01/22 documented as of this encounter
--- OUTSIDE RECORDS SUMMARY | 2024-10-06 19:02 | XMS_ITS | Encounter Summary ---
Author Organization [facility] Address [address] [place] [address] Phone Care Team Providers Care Corrugator Machine Operator Name Role Phone Justen Gale MD Primary Care Provider David Roberts APRN, MEMBERSHIP SECRETARY Unavailable Annel Rod MD Unavailable Encounter Details Date Type Department Care Team (Late st Contact Info) Description 06/05/2020 [facility] 1 [place] [address] Pili Elkins APRN, MEMBERSHIP SECRETARY #[address] [address] Frequency of micturition Social History [...] COVID-19? No / Unsure 2020 11:37 AM ROOFER HELPER documented as of this encounter Plan of Treatment Upcoming Encounters Date Type Department Care Team (Late st Contact Info) Description 10/22/2024 11:15 AM CDT Office Visit [facility] - [place] #2 [place] [address] Annel Rod MD #2 [facility] [address] [place] [address] 11/13/2024 2:00 PM CDT [facility] 1 [place] [address] Angelito Alegria, ZAMZAM, MEMBERSHIP SECRETARY #2 [facility] [address] [place] [address] Discharge Disposition: Discharged to home or Selfcare documented as of this encounter Procedures Procedure Name Priority Date/Time Associated Diagnosis Comments URINALYSIS REFLEX IF INDICATED BY ABNORMAL RESULTS Routine 06/05/2020 4:45 PM ROOFER HELPER Frequency of micturition documented in this encounter Results * (ABNORMAL) URINALYSIS REFLEX IF INDICATED BY ABNORMAL RESULTS (06/05/2020 4:45 PM ROOFER HELPER) SPECIFIC GRAVITY 1.020 1.003 - 1.030 06/05/2020 5:19 PM ROOFER HELPER [facility] URINE PH 5.0 5.0 - 9.0 06/05/2020 5:19 PM ROOFER HELPER [facility] WBC ESTERASE Negative Negative 06/05/2020 5:19 PM ROOFER HELPER [facility] NITRITE Negative Negative 06/05/2020 5:19 PM ROOFER HELPER [facility] PROTEIN, RANDOM URINE Negative Negative 06/05/2020 5:19 PM ROOFER HELPER [facility] URINE GLUCOSE, QUAL Negative Negative 06/05/2020 5:19 PM ROOFER HELPER [facility] URINE KETONES Negative Negative 06/05/2020 5:19 PM ROOFER HELPER [facility] UROBILINOGEN Normal Normal mg/dL 06/05/2020 5:19 PM ROOFER HELPER [facility] URINE BILIRUBIN Negative Negative 5:19 PM ROOFER HELPER [facility] URINE BLOOD 25 /uL(A) Negative leandro/ul 06/05/2020 5:19 PM ROOFER HELPER [facility] URINALYSIS COLOR Yellow 06/05/19 5:19 PM ROOFER HELPER [facility] URINALYSIS CLARITY Clear 06/05/2020 5:19 PM ROOFER HELPER [facility] WBC (Urine) 0-5 Negative, 0-5 /hpf 06/05/2020 5:19 PM ROOFER HELPER [facility] URINE RBC'S 3-5(A) Negative, 0-2 /hpf 06/05/2020 5:19 PM ROOFER HELPER [facility] EPITHELIAL CELLS Small amount /lpf 2020 5:19 PM ROOFER HELPER [facility] BACTERIA, URINE Few(A) Negative /hpf 06/05/2020 5:19 PM ROOFER HELPER [facility] Urine URINE SPECIMEN / Unknown Non-Phlebotomy Collection / Unknown 06/05/2020 4:45 PM ROOFER HELPER 06/05/2020 5:00 PM ROOFER HELPER us Pili Elkins LICENSED CLINICAL SOCIAL WORKER, MEMBERSHIP SECRETARY URINE ORDERABLES Fin al Result [facility] #1 [place] [address] documented in this encounter Visit Diagnoses Diagnosis Frequency of micturition Urinary frequency documented in this encounter Additional Health Concerns Infection Onset Date Last Indicated Resolved Time COVID - 19 08/01/2024 08/01/2024 08/01/2024 3:20 PM CDT Assessment Noted Time PHQ-9 Depression Total Score: 0 09/08/19 19 1:00 PM CDT documented as of this encounter Care Teams Corrugator Machine Operator Relationship Specialty Start Date End Date Justen Gale MD #2 [facility] [address] [place] [address] PCP - General Family Medicine 10/17/17 David Roberts, LICENSED CLINICAL SOCIAL WORKER, MEMBERSHIP SECRETARY #2 [place] [address] Nurse Practitioner Advanced Practice Nurse 01/31/22 Annel Rod MD #2 [facility] [address] [place] [address] Consulting Physician Endocrinology 07/01/22 documented as of this encounter
--- OUTSIDE RECORDS SUMMARY | 2024-10-06 19:03 | XMS_ITS | Encounter Summary ---
Author Organization [facility] Address [address] [place] [address] Phone Care Team Providers Care Manager Motor Name Role Phone Justen Gale MD Primary Care Provider [phone] David Roberts APRN, PRESSURIZATION MECHANIC Unavailable Annel Rod MD Unavailable Reason for Visit * Reason Onset Date Comments Pain 09/23/2024 Encounter Details Date Type Department Care Team (Late st Contact Info) Description 09/23/2024 Telephone [facility] [address] [place] [address] Justen Gale MD [address] [address] Pain Social History Tobacco Use Types Packs/Day Years Used Date Smoking Tobacco: Never Smokeless Tobacco: Never Alcohol Use Standard Drinks/Week Comments No 0 (1 standard drink = 0.6 oz pur e alcohol) [facility] Utilities Answer Date Recorded In the past 12 months has [employer], gas, oil, or water company threatened [...] Total Score - Questions 1-9 0 07/23 [facility] [...] time in the past 12 m [facility], were you homeless or living [...] - patient has RA Outcome: Transfer to felting machine operator helper queue Reason: Caller denied all higher acuity questions The caller accepted this outcome. Caller Denied: * Chest pain * Headache * Eye pain * Abdominal pain * Genital pain documented in this encounter Plan of Treatment Upcoming Encounters Date Type Department Care Team (Late st Contact Info) Description 10/22/2024 11:15 AM CDT Office Visit [facility] - Endocrinology [facility] [address] [place] [address] Annel Rod MD #[address] [facility] [address] [place] [address] 11/13/2024 2:00 PM CDT [facility]ointment [facility] [address] [place] [address] Angelito Alegria APRN, PRESSURIZATION MECHANIC #[address] [facility] [address] [place] [address] Discharge Disposition: Discharged to home or Selfcare documented as of this encounter Visit Diagnoses Not on filedocumented in this encounter Additional Health Concerns Assessment Noted Time PHQ-9 Depression Total Score: 0 08/02/19 25 1:09 PM CDT documented as of this encounter Care Teams Manager Motor Relationship Specialty Start Date End Date Justen Gale MD #[address] [facility] [address] [place] [address] PCP - General Family Medicine 10/17/17 David Roberts APRN, PRESSURIZATION MECHANIC [address] [place] [address] Nurse Practitioner Advanced Practice Nurse 01/31/22 Annel Rod MD #[address] [facility] [address] [place] [address] Consulting Physician Endocrinology 07/01/22 documented as of this encounter
--- OUTSIDE RECORDS SUMMARY | 2024-10-06 19:03 | XMS_ITS | Clinical Summary ---
Author Organization [facility] Address [address] [place] [address] Phone Care Team Providers Care Aquatic Physiotherapist Name Role Phone Justen Gale MD Primary Care Provider [phone] David Roberts APRN, JEWELRY CUTTER Unavailable Annel Rod MD Unavailable Allergies Active [...] without long-term current use of insulin ([facility]) Diagnosis: Diabetes Type 2 [...] Blood Gluc Sensor (FreeStyle Eileen 2 Sensor) [facility] APPLY 1 SENSOR AND WEAR FOR 14 DAYS TO CHECK BLOOD SUGAR 6 Each 1 08/07/19 24 Active albuterol 108 (90 Base) MCG/ACT Aerosol Solution take 2 Puffs by inhalation. 04/19/20 21 Active gabapentin (NEURONTIN) 300 MG Capsule Take 300 mg by mouth. 06/20/19 24 Active HYDROcodone-ac etaminophen (NORCO) 10-325 MG Tablet Take 1 Tablet by mouth. 12/28/19 24 Active Multiple Vitamins-Refugio als (WOMENS MULTI PO) Take by mouth. [...] Continuous Glucose Sensor (FreeStyle Eileen 2 Sensor) [facility] 1 Each by Does not apply route every 14 days. Change sensor every 14 days. E11.42, insulin dependent 6 Each 1 04/25/19 25 Active Continuous Glucose Sensor (FreeStyle Eileen 2 Sensor) [facility] 1 Each by Does not apply route [...] taking until cleared by PCP office or automatic bow maker machine tender. Will need to taper off slowly. Indications: Polymyalgia Rheumatica 30 Tablet 10/01/19 25 Active predniSONE (DELTASONE) 10 MG TabletIndicati ons:Polymyalgi a Rheumatica Take 1 Tablet by mouth daily. Do not stop taking until cleared by PCP office or automatic bow maker machine tender. Will need to taper off slowly. Indications: [...] Overview: Added automatically from request for surgery [id number] Lymphedema of left upper extremity 08/09/2016 Pulmonary embolism 08/09/2016 Overview (11/09/2017): Last Assessment & Plan: On Rivaroxaban Arthralgia of ankle 01/26/2015 Cellulitis of breast 11/11/2014 Encounters Date Type Department Care Team Description 09/30/2024 MyChart RX Renewal [facility] [address] [place] [address] Dulce Wolff N, DIRECTOR OF IN SERVICE EDUCATION, JEWELRY CUTTER Medication Renewal Reviewed 09/29/2024 Nurse Triage [facility] [address] [place] [address] Justen Gale MD Urinary Tract Infection 09/23/2024 Nurse Triage [facility] [address] [place] [address] Justen Gale MD Breathing Problem; Pain 09/23/2024 Telephone [facility] [address] [place] [address] Justen Gale MD Pain 09/11/2024 Telephone [facility] [address] [place] [phone] Justen Gale MD Follow-up 09/06/2024 1:15 PM CDT Office Visit [facility] [address] [place] [phone] Dulce Wolff, DIRECTOR OF IN SERVICE EDUCATION, JEWELRY CUTTER Enlarged tonsils (Primary Dx); Polymyalgia rheumatica (HCC); Oral candidiasis; Edema, unspecified type Discharge Disposition: Discharged to home or Selfcare 09/06/2024 Travel 09/03/2024 Telephone [facility] [address] [place] [phone] Justen Gale MD Follow-up 09/02/2024 Nurse Triage [facility] [address] [place] [phone] Justen Gale MD Sore Throat 08/20/2024 1:15 PM CDT Office Visit [facility] [address] [place] [phone] Justen Gale MD Acute maxillary sinusitis, recurrence not specified (Primary Dx) Discharge Disposition: Discharged to home or Selfcare 08/20/2024 Travel 08/19/2024 Telephone [facility] [address] [place] [phone] Justen Gale MD Advice Only; Follow-up 08/14/2024 Telephone [facility] Endocrinology [facility] [address] [place] [phone] Annel Rod MD High Blood Sugar 08/13/2024 Nurse Triage [facility] [address] [place] [phone] Justen Gale MD High Blood Sugar 08/07/2024 9:20 AM CDT Lab [facility] [address] [facility] [address] [place] [phone] [facility]/Ancillary Body aches; Diffuse arthralgia Discharge Disposition: Discharged to home or Selfcare 08/07/2024 8:30 AM CDT Office Visit [facility] Family [facility] [address] [place] [phone] Angelito Alegria APRN, CNP Diffuse arthralgia (Primary Dx); Dyspnea on exertion; Type 2 diabetes mellitus with diabetic polyneuropathy, with long-term current use of insulin (HCC) Discharge Disposition: Discharged to home or Selfcare 08/07/2024 Results Follow-Up [facility] [address] [place] [phone] Angelito Alegria APRN, CNP CREATINE KINASE (CK) TOTAL, ERYTHROCYTE SEDIMENTATION RATE (ESR), C-REACTIVE PROTEIN (CRP) QUANT 08/07/2024 Nurse Triage [facility] [address] [place] [phone] Justen Gale MD Breathing Problem; Muscle Pain 08/06/2024 Travel 08/05/2024 MyChart RX Renewal [facility] Endocrinology [facility] [address] [place] [phone] Annel Rod MD Medication Renewal Reviewed 08/05/2024 Nurse Triage [facility] [address] [place] [phone] Justen Gale MD Muscle Pain; Follow-up 08/03/2024 3:36 AM CDT - 08/03/2024 7:05 AM CDT Emergency [facility] [address] [place] [phone] Sergio Rivera MD Myalgia Discharge Disposition: Discharged to home or Selfcare 08/02/2024 Travel 08/02/2024 Nurse Triage [facility] [address] [place] [phone] Justen Gale MD Hemoptysis 08/02/2024 Telephone [facility] [address] [place] [phone] Justen Gale MD Results 08/02/2024 Telephone [facility] [address] [place] [address] Angelito Alegria APRN, JEWELRY CUTTER Results 08/02/2024 MyChart RX Renewal [facility] [address] [place] [address] Annel Rod MD Medication Renewal Reviewed 08/01/2024 2:13 PM CDT - 08/01/2024 4:16 PM CDT Emergency [facility] [address] [place] [address] Jack Leiva MD Dyspnea on exertion Discharge Disposition: Discharged to home or Selfcare 08/01/2024 1:15 PM CDT Office Visit [facility] [address] [place] [address] Angelito Alegria, ZAMZAM, JEWELRY CUTTER Body aches (Primary Dx) Discharge Disposition: Discharged to home or Selfcare 08/01/2024 Travel 08/01/2024 Nurse Triage [facility] [address] [place] [phone] Justen Gale MD Pain 07/22/2024 Telephone [facility] [address] [place] [address] Justen Gale MD Appointment 07/11/2024 Nurse Triage [facility] [address] [place] [phone] Justen Gale MD Toe Problem from Last 3 Months Immunizations Immunization Administration Dates Next Due Covid-19 Vaccine, Vector-nr, Rs-ad26, Pf, 0.5 Ml (PubMatic/[employer]novation) 06/29/2020 Influenza Vaccine greater than 3 yrs [...] oz pur e alcohol) [facility] Utilities Answer Date Recorded In the past 12 months has [employer], gas, oil, or water [employer] threatened to shut off services in your [...] any clubs o r organizations such as denominational groups, unions, fraternal or athletic groups, or [...] Total Score - Questions 1-9 0 07/23 [facility] - Occupational Stress Questionnaire Answer Date [...] Office Visit [facility] [address] [place] [address] Annel Rod MD [address]2 [facility] [address] [place] [address] 11/13/2024 2:00 PM CDT Appointment [facility]iology Services [address] [place] [phone] Angelito Alegria, DIRECTOR OF IN SERVICE EDUCATION, JEWELRY CUTTER [address]2 [facility] [address] [place] [address] Discharge Disposition: Discharged to home or Selfcare [...] screening for human papillomavirus (HPV) PATHOLOGY CYTOLOGY CONVENTIONAL UNDERWRITER Routine 07/05/2022 2:24 PM CDT Encounter for [...] DIAGNOSTIC ORDERABLES Final Result Performing Organization Address City/[facility] Co de Phone Number SCAN * PAIN CONSULT (09/19/2024 12:00 AM CDT) Only the most recent of2 resultswithin the time period is included. 09/19/2024 Justen Gale MD GENERIC SCAN ORDERS CONSULT F inal Result Performing Organization Address [facility] Co de Phone Number SCAN * CT - HEAD/NECK (08/13/2024 12:00 AM CDT) 08/13/[address] ORDERABLES Final Result Performing Organization Address [facility] de Phone Number SCAN * (ABNORMAL) ERYTHROCYTE SEDIMENTATION RATE (ESR) (08/07/2024 8:59 AM CDT) Only the most recent of2 resultswithin the time period is included. ESR (SED RATE, ERYTHROCYTE SEDIMENTATION RATE) 52(H) <30 mm/h 08/07/2024 12:34 PM CDT [facility] Comment: Patients presenting with increased level of fibrinogen, gamma globulins, or abnormally shaped RBCs could affect the results for the erythrocyte sedimentation rate (ESR). Results should be clinically correlated. Blood Venipuncture / Unknown 08/07/2024 8:59 AM CDT 08/07/2024 8:59 AM CDT Angelito Alegria APRN, CNP HEMATOLOGY ORDER CHAPARRO Final Result Performing Organization Address City/[facility]/ZIP Co de Phone Number [facility] [address] [place] [address] * CREATINE KINASE (CK) TOTAL (08/07/2024 8:59 AM CDT) Only the most recent of2 resultswithin the time period is included. CK (CPK) 151 29 - 168 U/L 08/07/2024 1:08 PM CDT [facility] Blood Venipuncture / Unknown 08/07/2024 8:59 AM CDT 08/07/2024 8:59 AM CDT Angelito Alegria APRN, CNP HEMATOLOGY ORDER CHAPARRO Final Result Performing Organization Address [facility] Co de Phone Number [facility] [address] [place] [address] * (ABNORMAL) C-REACTIVE PROTEIN (CRP) QUANT (08/07/2024 8:59 AM CDT) Only the most recent of2 resultswithin the time period is included. C-REACTIVE PROTEIN 1.21(H) <0.50 mg/dL 08/07/2024 12:54 PM CDT [facility] Blood Venipuncture / Unknown 08/07/2024 8:59 AM CDT 08/07/2024 8:59 AM CDT Angelito Alegria APRN, CNP CHEMISTRY ORDERA BLES Final Result Performing Organization Address [facility] Co de Phone Number [facility] [address] [place] [address] * (ABNORMAL) POCT GLUCOSE (08/07/2024 8:31 AM CDT) GLUCOSE 186(A) 70 - 99 mg/dL 08/07/2024 8:31 AM CDT us Aneglito Alegria APRN, JEWELRY CUTTER POINT OF CARE TE STING (MANUAL) Final [...] Sen Sy M.D. JANIYA: JANIYA Report ID: [id number] Reading Location: [id number] Procedure Note Dillon Sy MD - 08/03/2024 [...] signed by Sen DENSON: JANIYA Report ID: [id number] Reading Location: [id number] IMPRESSION: Negative right hip. Sergio Rivera MD [...] Patrick Zhou M.D. KH: KATH Report ID: [id number] Reading Location: [id number] Procedure Note Patrick Zhou MD - 08/03/2024 [...] Patrick Zhou M.D. KH: KATH Report ID: [id number] Reading Location: [id number] IMPRESSION: Mild bilateral infiltrates are suspected superimposed on chronic lung changes. Sergio Rivera MD IMG DIAGNOSTIC ORDERABLES Final Result * CBC with Auto Differential (08/02/2024 11:21 PM CDT) Only the most recent of2 resultswithin the time period is included. WBC 9.26 4.00 - 12.00 10(3)/mcL 08/03/2024 12:08 AM CDT [facility] RBC 4.62 3.80 - 5.30 10(6)/mcL 08/03/2024 12:08 AM CDT [facility] HEMOGLOBIN (HGB) 13.5 12.0 - 15.8 g/dL 08/03/2024 12:08 AM CDT [facility] HEMATOCRIT (HCT) 42.9 36.0 - 47.0 % 08/03/2024 12:08 AM CDT [facility] MCV 92.9 82.0 - 96.0 fL 08/03/2024 12:08 AM CDT [facility] MCH 29.2 26.0 - 34.0 pg 08/03/2024 12:08 AM CDT [facility] MCHC 31.5 31.0 - 36.0 g/dL 08/03/2024 12:08 AM CDT [facility] PLATELET COUNT 272 140 - 440 10(3)/mcL 08/03/2024 12:08 AM CDT [facility] RDW 12.8 11.8 - 15.5 % 08/03/2024 12:08 AM CDT [facility] MPV 10.2 9.7 - 12.4 fL 08/03/2024 12:08 AM CDT [facility] NEUTROPHILS 62.5 47.0 - 73.0 % 08/03/2024 12:08 AM CDT [facility] LYMPHOCYTES 27.1 18.0 - 42.0 % 08/03/2024 12:08 AM CDT [facility] MONOCYTES 7.1 4.0 - 12.0 % 08/03/2024 12:08 AM CDT [facility] EOSINOPHILS 3.0 0.0 - 5.0 % 08/03/2024 12:08 AM CDT [facility] BASOPHILS 0.3 0.0 - 1.0 % 08/03/2024 12:08 AM CDT [facility] ABSOLUTE NEUTROPHILS 5.78 1.60 - 7.70 10(3)/mcL 08/03/2024 12:08 AM CDT [facility] ABSOLUTE LYMPHOCYTES 2.51 1.30 - 3.20 10(3)/[facility] 08/03/2024 12:08 AM CDT [facility] ABSOLUTE MONOCYTES 0.66 0.20 - 1.00 10(3)/[facility] 08/03/2024 12:08 AM CDT [facility] ABSOLUTE EOSINOPHIL 0.28 0.00 - 0.40 10(3)/[facility] 08/03/2024 12:08 AM CDT [facility] ABSOLUTE BASOPHILS 0.03 0.00 - 0.10 10(3)/[facility] 08/03/2024 12:08 AM CDT [facility] NRBC PER 100 WBC 0 08/04/19 25 12:08 AM CDT [facility] Blood Venipuncture / Unknown 08/02/2024 11:21 PM CDT 08/03/2024 12:05 AM CDT us Sergio Rivera MD HEMATOLOGY ORDERABLES Final Resu lt [facility] [address] [place] [address] * (ABNORMAL) CMP (Comprehensive Metabolic Panel) (08/02/2024 11:21 PM CDT) Only the most recent of2 resultswithin the time period is included. SODIUM 138 136 - 145 mmol/L 08/03/2024 12:29 AM T [facility] POTASSIUM 4.4 3.5 - 5.1 mmol/L 08/03/2024 12:29 AM T [facility] CHLORIDE 104 98 - 107 mmol/L 08/03/2024 12:29 AM T [facility] CO2, VENOUS 26 22 - 30 mmol/L 08/03/2024 12:29 AM T [facility] ANION GAP 12.4 <18.0 mmol/L 08/03/2024 12:29 AM T [facility] GLUCOSE 353(H) 70 - 99 mg/dL 08/03/2024 12:29 AM T [facility] BUN 18 10 - 20 mg/dL 08/03/2024 12:29 AM [facility] CREATININE, BLOOD 0.80 0.60 - 1.00 mg/dL 08/03/2024 12:29 AM T [facility] BUN/CREATININE RATIO 23(H) 12 - 20 ratio 08/03/2024 12:29 AM [facility] TOTAL PROTEIN 8.4(H) 6.0 - 8.0 g/dL 08/03/2024 12:29 AM [facility] ALBUMIN 3.8 3.5 - 5.0 g/dL 08/03/2024 12:29 AM T [facility] A/G RATIO 0.8(L) 1.0 - 2.2 08/03/2024 12:29 AM [facility] CALCIUM 10.0 8.7 - 10.5 mg/dL 08/03/2024 12:29 AM T [facility] T BILI 0.4 0.2 - 1.2 mg/dL 08/03/2024 12:29 AM T [facility] SGOT (AST) 23 <43 U/L 08/03/2024 12:29 AM CDT [facility] SGPT (ALT) 22 <56 U/L 08/03/2024 12:29 AM CDT [facility] ALKALINE PHOSPHATASE 67 40 - 150 U/L 08/03/2024 12:29 AM CDT [facility] GFR, ESTIMATED >60 >=60 08/03/2024 12:29 AM CDT [facility] Comment: Creatinine Clearance is the preferred criteria for selecting drug dose adjustments in renally impaired patients. The GFR is provided as additional pertinent clinical information. GFR is reported in mL/min/1.73 sq m. Calculation based on the Chronic Kidney Disease Epidemiology Collaboration (CKD- EPI) equation refit without adjustment for race. GFR, EST. >60 >=60 025 12:29 AM CDT [facility] GFR, EST. NONAFRICAN >60 >=60 08/03/2024 12:29 AM CDT [facility] Blood Venipuncture / Unknown 08/02/2024 11:21 PM CDT 08/03/2024 12:05 AM CDT Sergio Rivera MD CHEMISTRY ORDERABLES Final Resul t [facility] [address] [place] [address] * TROPONIN I, HIGH SENSITIVITY (HSTRP) (08/01/2024 2:48 PM CDT) TROPONIN I, HIGH SENSITIVITY- [place] 4 <=14 ng/L 08/01/2024 3:45 PM CDT [facility] Comment: High-sensitivity troponin I results are reported in ng/L making the result appear to be 1,000 times higher than the contemporary troponin I value which is reported in ng/ml. Results from [place]. Blood Venipuncture / Unknown 08/01/2024 2:48 PM CDT 08/01/2024 3:08 PM CDT Jack Leiva MD CHEMISTRY ORDERABLES Deann l Result Performing Organization Address City/[facility]/ZIP Co de Phone Number [facility] [address] [place] [address] * Gold Top Tube (08/01/2024 2:48 PM CDT) Blood No Phlebotomy Charged / Unknown 08/01/2024 2:48 PM CDT 08/01/2024 3:12 PM CDT us Jack Leiva MD CHEMISTRY ORDERABLES Deann l Result Performing Organization Address [facility] Co de Phone Number [facility] [address] [place] [address] * Blue Top Tube (08/01/2024 2:48 PM CDT) Blood No Phlebotomy Charged / Unknown 08/01/2024 2:48 PM CDT 08/01/2024 3:12 PM CDT Jack Leiva MD HEMATOLOGY ORDERABLES Fin al Result Performing Organization Address [facility] Co de Phone Number [facility] [address] [place] [address] * Magnesium (08/01/2024 2:48 PM CDT) MAGNESIUM 1.6 1.6 - 2.6 mg/dL 08/01/2024 3:39 PM CDT [facility] Blood Venipuncture / Unknown 08/01/2024 2:48 PM CDT 08/01/2024 3:08 PM CDT Jack Leiva MD CHEMISTRY ORDERABLES Deann l Result Performing Organization Address City/[facility]/ZIP Co de Phone Number [facility] [address] [place] [address] * B-Type Natriuretic Peptide (BNP) (08/01/2024 2:48 PM CDT) B TYPE NATRIURETIC PEPTIDE 23 <100 pg/mL 08/01/2024 3:37 PM CDT [facility] Blood Venipuncture / Unknown 08/01/2024 2:48 PM CDT 08/01/2024 3:08 PM CDT us Jack Leiva MD CHEMISTRY ORDERABLES Deann l Result [facility] [address] [place] [address] * EKG 12 LEAD (08/01/2024 2:41 PM CDT) Ventricular Rate 75 BPM EXTERNAL EKG Atrial Rate 75 BPM EXTERNAL EKG P-R Interval 134 ms EXTERNAL EKG QRS Duration 82 ms EXTERNAL EKG Q-T Duration 380 ms EXTERNAL EKG QTC CALCULATION 424 ms EXTERNAL EKG P [place] -77 degrees EXTERNAL EKG R [place] 28 degrees EXTERNAL EKG T [place] 53 degrees EXTERNAL EKG 08/01/2024 2:41 PM CDT Impressions EXTERNAL EKG - 08/04/2024 12:00 PM CDT Atrial-sensed ventricular-paced rhythm Abnormal ECG No previous ECGs available Confirmed by Maryann Clay ([id number]) on 08/04/2024 11:59:59 AM Narrative Procedure Note Maryann Clay MD - 08/04/2024 IMPRESSION: Atrial-sensed ventricular-paced rhythm Abnormal ECG No previous ECGs available Confirmed by Maryann Clay ([id number]) on 08/04/2024 11:59:59 AM us Jack Leiva MD IMG ECG ORDERABLES Final Result Performing Organization Address City/[facility]/ZIP Co de Phone Number EXTERNAL EKG [...] Romelia Bowen D.O. PS: PS Report ID: [id number] Reading Location: [id number] Procedure Note Romelia Bowen DO - 08/01/2024 [...] Romelia Bowen D.O. PS: PS Report ID: [id number] Reading Location: [id number] IMPRESSION: Patchy left basilar airspace opacities, which may be related to subsegmental atelectasis/scarring versus developing airspace disease. Jack Leiva MD IMG DIAGNOSTIC ORDERABLES Final Result * RSV,SARS-COV-2,INFLUENZA A&B BY PCR (08/01/2024 2:28 PM CDT) FLU A Negative Negative, Error 08/01/2024 3:20 PM CDT [facility] FLU B Negative Negative 08/01/2024 3:20 PM CDT [facility] RESP SYNC VIRUS Negative Negative 3:20 PM CDT [facility] SARSCOV2 NOT DETECTED (Reference Range for this test is Not Detected) 08/01/2024 3:20 PM CDT [facility] Comment:This test was perfor med by a Reverse Inside Sales Coordinator PCR Method. Swab NASOPHARYNGEAL STRUCTURE / Unknown Non-Phlebotomy Collection / Unknown 08/01/2024 2:28 PM CDT 08/01/2024 2:33 PM CDT Result [facility] Jack Leiva MD MICROBIOLOGY - GENERAL OR DERABLES Final Result Performing Organization Address [facility] Co de Phone Number [facility] [address] [place] [address] * EKG SCAN (08/01/2024 12:00 AM CDT) 08/01/2024 Provider Scan IMG ECG ORDERABLES Final Result RESULTING AGENCY * CT - CHEST (07/22/2024 12:00 AM CDT) 07/22/[address] ORDERABLES Final Result Performing Organization Address City/[facility]/ZIP Co de Phone Number SCAN * XR - LOWER EXTREMITY (07/10/2024 12:00 AM CDT) 07/10/2024 us Provider Scan IMG DIAGNOSTIC ORDERABLES Final Result SCAN * HEMOGLOBIN, A1C (10/02/2023 12:00 AM CDT) HGB-A1C 7.8 SCAN 10/02/2023 us Provider Scan CHEMISTRY ORDERABLES Final Resul t SCAN * PATHOLOGY CYTOLOGY CONVENTIONAL UNDERWRITER (07/05/2022 2:24 PM CDT) SPECIMEN ADEQUACY A scant cellular component is noted. Scant cellularity is likely due to presence of lubricant. 07/08/2022 8:38 AM CDT [facility] DESCRIPTIVE DIAGNOSIS NEGATIVE FOR INTRAEPITHELIAL LESIONS OR MALIGNANCY. 07/08/2022 8:38 AM CDT [facility] at 0838 CDT OTHER FINDINGS Atrophic hormonal pattern. 07/08/2022 8:38 AM CDT [facility] Automated Examination This sample was not evaluated by the automated imaging and review system ([employer] Imaging System, [employer], [place], [place] due to technical and / or biologic factor(s). The case was screened, reviewed, and finalized by a centrifugal casting machine tender and / or pathologist. 07/08/2022 8:38 AM CDT [facility] Disclaimer The PAP smear [...] unless clinically indicated. 07/08/2022 8:38 AM CDT [facility] Other CERVIX UTERI STRUCTURE / Unknown Non-Phlebotomy Collection / Unknown 07/05/2022 2:24 PM CDT 07/05/2022 2:24 PM CDT us Pili Elkins APRN, CNP PATHOLOGY/CYTOLOGY O RDERABLES Final Result [facility] [address] [place] [address], * HUMAN PAPILLOMA VIRUS (HPV) (07/05/2022 2:24 PM CDT) HPV OTHER HIGH RISK TYPES, PCR NEGATIVE NEGATIVE 07/06/2022 2:37 PM CDT [facility] Comment: The following Other [...] 16 NEGATIVE NEGATIVE 07/06/2022 2:37 PM CDT [facility] Comment: A negative high-risk [...] 18 NEGATIVE NEGATIVE 07/06/2022 2:37 PM CDT [facility] Comment: A negative high-risk [...] OR DIAGNOSTIC SCREENING 07/06/2022 2:37 PM CDT [facility] Other Non-Phlebotomy Collection / Unknown 07/05/2022 2:24 PM CDT 07/05/2022 2:24 PM CDT Narrative [facility] - 07/06/2022 2:37 PM CDT Performed by Real-Time Polymerase Chain Reaction (PCR) on the Ronnie Vinay 4800. This assay has been validated for use with post-aliquot samples from the [employer] T5000 processor. Pili Elkins APRN, CNP LAB SEND OUTS Deann l Result [facility] [address] [place] [address], [place] [facility] [address] [place] [address] * HM COLONOSCOPY (01/09/2020) Genaro Jensen DO PROCEDURE/MINOR SURGICAL ORDERA BLES Final Result * AMB REFERRAL TO PODIATRY (08/13/2019) Alvarez Mensah MD OUTPATIENT REFERRALS Final Res ult * POCT STOOL, OCCULT BLOOD, DIAGNOSTIC (09/07/2018 1:20 PM CDT) OCCULT BLOOD, STOOL Negative Negative, Other POC HEMOCULT CONTROL Game Moderator Pass 09/07/2018 1:20 PM CDT Pili Elkins APRN, CNP POINT OF CARE TESTIN G (MANUAL) Final Result from Last 3 Months or Most Recently Relevant to Health Maintenance Insurance MEDICARE C [facility] Care Teams Aquatic Physiotherapist Relationship Specialty Start Date End Date Justen Gale MD [address] [facility] [address] [place] [address] PCP - General Family Medicine 10/17/17 David Roberts, DIRECTOR OF IN SERVICE EDUCATION, JEWELRY CUTTER [address] [place] [address] Nurse Practitioner Advanced Practice Nurse 01/31/22 Annel Rod MD [address] [facility] [address] [place] [address] Consulting Physician Endocrinology 07/01/22
--- OUTSIDE RECORDS SUMMARY | 2024-10-06 19:03 | XMS_ITS | Encounter Summary ---
Author Organization [facility] Address [address] [place] [address] Phone Care Team Providers Care High Pressure Kettle Operator Name Role Phone Justen Gale MD Primary Care Provider David Roberts APRN, CONSULTING SENIOR PRACTICE DIRECTOR Unavailable Annel Rod MD Unavailable Reason for Visit * Reason Comments Medication Refill Encounter Details Date Type Department Care Team (Late st Contact Info) Description 10/24/2022 Refill [facility] #2 [place] [address] Pili Elkins APRN, CONSULTING SENIOR PRACTICE DIRECTOR #[address] [address] Medication Refill Social History Tobacco [...] Group - Endocrinology [facility] #2 [place] [address] Annel Rod MD #[address] [address] 11/13/2024 2:00 PM CDT [facility] 1 [place] [address] Angelito Alegria, BUSINESS DEVELOPMENT ASSISTANT, CONSULTING SENIOR PRACTICE DIRECTOR #2 [facility] [address] [place] [address] Discharge Disposition: Discharged to home or Selfcare documented as of this encounter Visit Diagnoses Diagnosis Essential hypertension Unspecified essential hypertension documented in this encounter Additional Health Concerns Infection Onset Date Last Indicated Resolved Time COVID - 19 08/01/2024 08/01/2024 08/01/2024 3:20 PM CDT Assessment Noted Time PHQ-9 Depression Total Score: 0 09/17/19 11:00 AM CDT documented as of this encounter Care Teams High Pressure Kettle Operator Relationship Specialty Start Date End Date Justen Gale MD #[address] [address] PCP - General Family Medicine 10/17/17 David Roberts BUSINESS DEVELOPMENT ASSISTANT, CONSULTING SENIOR PRACTICE DIRECTOR #2 [place] [address] Nurse Practitioner Advanced Practice Nurse 01/31/22 Annel Rod MD #[address] [address] Consulting Physician Endocrinology 07/01/22 documented as of this encounter
--- OUTSIDE RECORDS SUMMARY | 2024-10-06 19:03 | XMS_ITS | Encounter Summary ---
Author Organization [facility] Address [address] [place] [address] Phone Care Team Providers Care Salesforce Specialist Name Role Phone Justen Gale MD Primary Care Provider David Roberts APRN, CAR REPAIRMAN Unavailable Annel Rod MD Unavailable Reason for Visit * Reason Comments Medication Refill Encounter Details Date Type Department Care Team (Late st Contact Info) Description 09/30/2023 Refill [facility] - [place] #2 [place] [address] Annel Rod MD #[address] [address] Medication Refill Social History Tobacco [...] 10/22/2024 11:15 AM CDT Office Visit [facility] - Endocrinology [facility] #2 [place] [address] Annel Rod MD #[address] [address] 11/13/2024 2:00 PM CDT [facility] 1 [place] [address] Angelito Alegria APRN, NETTA #[address] [address] Discharge Disposition: Discharged to home or Selfcare documented as of this encounter Visit Diagnoses Not on filedocumented in this encounter Additional Health Concerns Infection Onset Date Last Indicated Resolved Time COVID - 19 08/01/2024 08/01/2024 08/01/2024 3:20 PM CDT Assessment Noted Time PHQ-9 Depression Total Score: 8 01/18/20 2:24 PM CDT documented as of this encounter Care Teams Salesforce Specialist Relationship Specialty Start Date End Date Justen Gale MD #[address] [place] [address] PCP - General Family Medicine 10/17/17 David Roberts APRN, CAR REPAIRMAN #2 [place] [address] Nurse Practitioner Advanced Practice Nurse 01/31/22 Annel Rod MD #[address] [address] Consulting Physician Endocrinology 07/01/22 documented as of this encounter
--- OUTSIDE RECORDS SUMMARY | 2024-10-06 19:03 | XMS_ITS | Encounter Summary ---
Author Organization [facility] Address [address] [place] [address] Phone Care Team Providers Care Auditor In Charge Name Role Phone Lavonne Hathaway MD Primary Care Provider + [phone] Liu Jerez MD Unavailable [phone] Albert Corbin MD Unavailable [phone] Justen Gale MD Primary Care Provider + [phone] Lavonne Hathaway MD Primary Care Provider + [phone] Justen Gale MD Primary Care Provider + [phone] Khris Arthur MD Unavailable + [phone] Ko Melendez MD Unavailable [phone] John Paul Moyer MD Unavailable Annel Rod MD Unavailable Anali MARSHALL MD, Carlos M. 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 Gender Identity Not on file Sexual Orientation [...] COVID: Recovered 02/10/2022 02/10/2022 06/10/2022 3:05 AM PLANT BREEDER Exposure, COVID-19 Comment:Added automatically based on COVID19 lab answers indicating exposure risk 02/11/2022 02/11/2022 02/15/2022 9:06 AM C DT COVID: Suspected 05/14/2022 05/14/2022 05/14/2022 10:41 AM PLANT BREEDER COVID: Suspected 06/07/2022 06/07/2022 06/07/2022 12:28 PM PLANT BREEDER COVID: Suspected 06/21/2022 06/21/2022 06/21/2022 2:12 AM PLANT BREEDER COVID: Suspected 10/05/2022 10/05/2022 10/05/2022 7:40 PM CDT COVID: Suspected 01/04/2024 01/04/2024 01/04/2024 10:30 PM CDT COVID: Suspected 02/14/2024 02/14/2024 02/15/2024 12:36 AM CDT COVID: Suspected 07/01/2024 07/01/2024 07/01/2024 2:53 PM CDT COVID: Suspected 07/01/2024 07/01/2024 07/02/2024 3:05 AM CDT documented as of this encounter Care Teams Auditor In Charge Relationship Specialty Start Date End Date Lavonne Hathaway MD [address] [place] [address] [place] [address] PCP - General 08/16/16 08/17/17 Justen Gale MD 2 [facility] [address] [address] PCP - General 08/18/17 08/22/17 Lavonne Hathaway MD [address] [place] [address] [place] [address] PCP - General Family Medicine 08/23/17 10/08/17 Justen Gale MD 2 [facility] [address] [address] PCP - General 10/09/17 Liu Jerez MD [address] [place] [address] [place] [address] Consulting Physician Gastroenterology 07/28/17 [place] [address] [facility] [address] [place] [address] Consulting Physician Pulmonary Disease 08/03/17 Khris Arthur MD [address] [facility] [address] [place] [address] Medical Oncologist/[facility] Medical Oncology 10/23/17 [place] [address] [facility] [address] [place] [address] Surgeon Orthopedic Surgery 10/23/17 [place] [address] [facility] [address] [place] [address] Consulting Physician Pain Management 10/23/17 [place] [address] [facility] [address] [place] [address] Referring Physician General Surgery 01/26/18 [place] [address] [facility] [address] [place] [address] Consulting Physician Neurology 01/26/18 documented as of this encounter
--- OUTSIDE RECORDS SUMMARY | 2024-10-06 19:03 | XMS_ITS | Encounter Summary ---
Author Organization [facility] Address [address] [place] [address] Phone Care Team Providers Care Business Division Chair Name Role Phone Justen Gale MD Primary Care Provider David Roberts APRN, IT SECURITY ANALYST Unavailable Annel Rod MD Unavailable Reason for Visit * Reason Comments Medication Refill Encounter Details Date Type Department Care Team (Late st Contact Info) Description 03/02/2023 Refill [facility] Family [facility] #2 [place] [address] Justen Gale MD #[address] [address] Medication Refill Social History Tobacco Use Types [...] Tamika Villarreal RN - 03/02/2023 8:51 AM STIFF LEG OPERATOR Medication failed the protocol, provider to review [...] Dept 01/17/23 Office Visit Catrina Quiñonez MD [facility] 09/16/22 Office Visit Pili Elkins APRN, CNP [facility] 07/05/22 Office Visit Pili Elkins APRN, NETAT [facility] 05/02/22 Office Visit Justen Gale MD [facility] 03/03/22 Office Visit Pili Elkins APRN, NETTA [facility] Showing recent visits within past 365 days and meeting all other requirements Future Appointments No visits were found meeting these conditions. Showing future appointments within next 90 days and meeting all other requirements F LEG OPERATOR documented in this encounter Plan of Treatment Upcoming Encounters Date Type Department Care Team (Late st Contact Info) Description 10/22/2024 11:15 AM CDT Office Visit [facility] - Endocrinology - [place] #2 [place] [address] Annel Rod MD #[address] [address] 11/13/2024 2:00 PM CDT Appointment [facility] Cardiology Services 1 [place] [address] Angelito Alegria, MANAGER MINING, IT SECURITY ANALYST #[address] [address] Discharge Disposition: Discharged to home or Selfcare documented as of this encounter Visit Diagnoses Not on filedocumented in this encounter Additional Health Concerns Infection Onset Date Last Indicated Resolved Time COVID - 19 08/01/2024 08/01/2024 08/01/2024 3:20 PM CDT Assessment Noted Time PHQ-9 Depression Total Score: 8 01/18/20 2:24 PM CDT documented as of this encounter Care Teams Business Division Chair Relationship Specialty Start Date End Date Justen Gale MD #[address] [address] PCP - General Family Medicine 10/17/17 David Roberts APRN, IT SECURITY ANALYST #2 [place] [address] Nurse Practitioner Advanced Practice Nurse 01/31/22 Annel Rod MD #[address] [address] Consulting Physician Endocrinology 07/01/22 documented as of this encounter
--- OUTSIDE RECORDS SUMMARY | 2024-10-06 19:03 | XMS_ITS | Encounter Summary ---
Author Organization [facility] Address [address] [place] [address] Phone Care Team Providers Care Utility Teller Name Role Phone Justen Gale MD Primary Care Provider David Roberts APRN, CLINICAL SERVICES CONSULTANT Unavailable Annel Rod MD Unavailable Reason for Visit * Reason Onset Date Comments Advice Only 11/21/2023 Encounter Details Date Type Department Care Team (Late st Contact Info) Description 11/21/2023 Telephone [facility] [address] [place] [address] Justen Gale MD #[address] [address] Advice Only Social History Tobacco Use Types [...] 11/21/2023 3:17 PM CDT RFC: Alejandra from [facility] is calling to state that [...] Visit [facility] - Endocrinology - [place] #2 [place] [address] Annel Rod MD #2 [facility] [address] [place] [address] 11/13/2024 2:00 PM CDT [facility] 1 [place] [address] Angelito Alegria APRN, CLINICAL SERVICES CONSULTANT #2 [facility] [address] [place] [address] Discharge Disposition: Discharged to home or Selfcare documented as of this encounter Visit Diagnoses Not on filedocumented in this encounter Additional Health Concerns Infection Onset Date Last Indicated Resolved Time COVID - 19 08/01/2024 08/01/2024 08/01/2024 3:20 PM CDT Assessment Noted Time PHQ-9 Depression Total Score: 8 01/18/20 2:24 PM CDT documented as of this encounter Care Teams Utility Teller Relationship Specialty Start Date End Date Justne Gale MD #2 [facility] [address] [place] [address] PCP - General Family Medicine 10/17/17 David Roberts APRN, NETTA #2 [place] [address] Nurse Practitioner Advanced Practice Nurse 01/31/22 Annel Rod MD #2 [facility] [address] [place] [address] Consulting Physician Endocrinology 07/01/22 documented as of this encounter
--- OUTSIDE RECORDS SUMMARY | 2024-10-06 19:03 | XMS_ITS | Encounter Summary ---
Author Organization [facility] Address [address] [place] [address] Phone Care Team Providers Care Natural Resources Manager Name Role Phone Justen Gale MD Primary Care Provider David Roberts APRN, PURCHASING DEPARTMENT CLERK Unavailable Annel Rod MD Unavailable Reason for Visit * Reason Comments Medication Refill Encounter Details Date Type Department Care Team (Late st Contact Info) Description 07/06/2023 Refill [facility] - Family [facility] #2 [place] [address] Justen Gale MD #[address] [address] Medication Refill Social History Tobacco Use Types [...] Medication[facility]) [facility] Refill Standing Order for [...] Dept 06/27/23 Office Visit Justen Gale MD [facility] [place] 01/17/23 Office Visit Catrina Quiñonez MD [facility] [place] Showing recent visits within past 270 [...] Description 10/22/2024 11:15 AM CDT Office Visit [facility] Medical Group - Endocrinology - [place] #[address] [place] [address] Annel Rod MD #[address] [facility] [address] [place] [address] 11/13/2024 2:00 PM CDT Appointment [facility] Cardiology Services 1 [place] [address] Angelito Alegria, POLITICAL DIRECTOR, PURCHASING DEPARTMENT CLERK #2 [facility] [address] [place] [address] Discharge Disposition: Discharged to home or Selfcare documented as of this encounter Visit Diagnoses Not on filedocumented in this encounter Additional Health Concerns Infection Onset Date Last Indicated Resolved Time COVID - 19 08/01/2024 08/01/2024 08/01/2024 3:20 PM CDT Assessment Noted Time PHQ-9 Depression Total Score: 8 01/18/20 23 2:24 PM CDT documented as of this encounter Care Teams Natural Resources Manager Relationship Specialty Start Date End Date Justen Gale MD #[address] [address] PCP - General Family Medicine 10/17/17 David Roberts APRN, PURCHASING DEPARTMENT CLERK #2 [place] [address] Nurse Practitioner Advanced Practice Nurse 01/31/22 Annel Rod MD #[address] [address] Consulting Physician Endocrinology 07/01/22 documented as of this encounter
--- OUTSIDE RECORDS SUMMARY | 2024-10-06 19:03 | XMS_ITS | Encounter Summary ---
Author Organization [facility] Address [address] [place] [address] Phone Care Team Providers Care Sales Representative Consultant Name Role Phone Justen Gale MD Primary Care Provider David Roberts APRN, BREAD PAN GREASER Unavailable [phone] Annel Rod MD Unavailable Reason for Visit * Reason Comments Medication Refill Encounter Details Date Type Department Care Team (Late st Contact Info) Description 07/12/2022 Refill [facility] Family [facility] #2 [place] [address] Justen Gale MD #[address] [address] Medication Refill Social History Tobacco Use Types [...] 07/05/22 Office Visit Pili Elkins APRN, NETTA [facility] [place] 05/02/22 Office Visit Justen Gale MD [facility] [place] 03/03/22 Office Visit Pili Elkins APRN, BREAD PAN GREASER [facility] [place] 01/03/22 Office Visit Dannielle Berg PAC [facility] [place] 12/07/21 Office Visit Pili Elkins APRN, NETTA [facility] [place] 11/09/21 Office Visit Pili Elkins APRN, NETTA [facility] [place] 10/08/21 Office Visit Angelito Alegria APRN, NETTA [facility] [place] 08/30/21 Office Visit Just[facility] Showing recent visits within past 365 days and meeting all other requirements Future Appointments No visits were found meeting these conditions. Showing future appointments within next 90 days and meeting all other requirements documented in this encounter Plan of Treatment Upcoming Encounters Date Type Department Care Team (Late st Contact Info) Description 10/22/2024 11:15 AM CDT [facility] Visit [facility] End[facility] #2 [place] [address] Annel Rod MD #[address] [address] 11/13/2024 2:00 PM CDT [facility] 1 [place] [address] Angelito Alegria APRN, BREAD PAN GREASER #[address] [address] Discharge Disposition: Discharged to home or Selfcare documented as of this encounter Visit Diagnoses Not on filedocumented in this encounter Additional Health Concerns Infection Onset Date Last Indicated Resolved Time COVID - 19 08/01/2024 08/01/2024 08/01/2024 3:20 PM CDT Assessment Noted Time PHQ-9 Depression Total Score: 0 07/21/19 3:00 PM CDT documented as of this encounter Care Teams Sales Representative Consultant Relationship Specialty Start Date End Date Justen Gale MD #[address] [address] PCP - General Family Medicine 10/17/17 David Roberts APRN, BREAD PAN GREASER #2 [place] [address] Nurse Practitioner Advanced Practice Nurse 01/31/22 Annel Rod MD #[address] [address] Consulting Physician Endocrinology 07/01/22 documented as of this encounter
--- OUTSIDE RECORDS SUMMARY | 2024-10-06 19:03 | XMS_ITS | Encounter Summary ---
Author Organization [facility] Address [address] [place] [address] Phone Care Team Providers Care Corrugated Sheet Material Sheeter Name Role Phone Justen Gale MD Primary Care Provider [phone] David Roberts APRN, BAND AND CUFF CUTTER Unavailable Annel Rod MD Unavailable Reason for Visit * Reason Onset Date Comments Breathing Problem 08/07/2024 Muscle Pain 08/07/2024 Encounter Details Date Type Department Care Team (Late st Contact Info) Description 08/07/2024 Nurse Triage [facility] [address] [place] [address] Justen Gale MD #[address] [address] Breathing Problem; Muscle Pain Social History Tobacco [...] often do you attend chur ch or jehovah's witness services? More than 4 times per year [...] Total Score - Questions 1-9 0 07/23 [facility] - [...] any time in the past 12 [facility], were you homeless or living in a [...] this was discussed with the front end developer and provider was to be notified [...] Encouraged caller to bring cell phone and candy puller to contact EMS 911 if symptoms [...] (e.g., disoriented, slurred speech) Protocols used: Breathing [id number] * Telephone Encounter - Neha Tomlinson - [...] Visit [facility] Endocrinology - [place] #2 [place] [address] Annel Rod MD #2 [facility] [address] [place] [address] 11/13/2024 2:00 PM CDT [facility] 1 [place] [address] Angelito Alegria, RESIDENCE LEASING AGENT, BAND AND CUFF CUTTER #2 [facility] [address] [place] [address] Discharge Disposition: Discharged to home or Selfcare documented as of this encounter Visit Diagnoses Not on filedocumented in this encounter Additional Health Concerns Assessment Noted Time PHQ-9 Depression Total Score: 0 08/02/19 25 1:09 PM CDT documented as of this encounter Care Teams Corrugated Sheet Material Sheeter Relationship Specialty Start Date End Date Justen Gale MD #2 [facility] [address] [place] [address] PCP - General Family Medicine 10/17/17 David Roberts APRN, BAND AND CUFF CUTTER #2 [place] [address] Nurse Practitioner Advanced Practice Nurse 01/31/22 Annel Rod MD #2 [facility] [address] [place] [address] Consulting Physician Endocrinology 07/01/22 documented as of this encounter
--- OUTSIDE RECORDS SUMMARY | 2024-10-06 19:03 | XMS_ITS | Clinical Summary ---
Author Organization [facility] Address [address] [place] [address] Phone Care Team Providers Care Day Spa Manager Name Role Phone Justen Gale MD Primary Care Provider [phone] Allergies Active Allergy Reactions Criticality Noted Date [...] - 6.0 % 09/29/2017 10:28 AM CDT [employer] [facility] EST. AVG GLUCOSE, A1C 186 mg/dL 09/29/2017 10:28 AM CDT [employer] [facility] Blood Venipuncture / Unknown 09/28/2017 8:41 PM CDT 09/28/2017 8:46 PM CDT Narrative [facility] - 09/29/2017 10:28 AM CDT HGB A1C INTERPRETATION NORMAL: <5.7% PRE-DIABETES: 5.7 - 6.4% DIABETES: 6.5% OR GREATER us Francisco Castaneda MD CHEMISTRY ORDERABLES Final Resul t [facility] [employer] [facility]# [id number] [address] [facility] [address] * (ABNORMAL) LIPID PANEL (09/28/2017 8:41 PM CDT) CHOLESTEROL 174 <200 mg/dL 09/30/2017 2:45 AM CDT [facility] [employer] [facility] TRIGLYCERIDE 109 <150 mg/dL 09/30/2017 2:45 AM CDT [facility] [employer] [facility] HDL 45 40 - 59 mg/dL 09/30/2017 2:45 AM CDT [facility] [employer] [facility] LDL CALCULATED 107(H) <100 mg/dL 09/30/2017 2:45 AM CDT [facility] [employer] [facility] NON-HDL CHOLESTEROL 129 <130 mg/dL 09/30/2017 2:45 AM CDT [facility] [employer] [facility] Blood Venipuncture / Unknown 09/28/2017 8:41 PM CDT 09/28/2017 8:46 PM CDT Narrative [facility] - 09/30/2017 2:45 AM CDT TOTAL [...] Castaneda MD CHEMISTRY ORDERABLES Final Resul t [facility] [id number] [address] [facility] [employer] [facility] [place] [place] [address] from Last 3 Months or Most Recently Relevant to Health Maintenance Insurance Advance Directives For more information, please contact: [phone] * Full Code (Latest Code Status on File) Date Activated Date Inactivated Comments 09/29/2017 7:45 AM 09/30/2017 9:14 PM * Full Code Date Activated Date Inactivated Comments 09/29/2017 1:25 AM 09/29/2017 7:45 AM Care Teams Day Spa Manager Relationship Specialty Start Date End Date Justen Gale MD [address] [facility] [address] [place] [address] PCP - General Cardiovascular Disease 09/14/17
--- OUTSIDE RECORDS SUMMARY | 2024-10-06 19:03 | XMS_ITS | Encounter Summary ---
Author Organization [facility] Address [address] [place] [address] Phone Care Team Providers Care Poultry Raiser Name Role Phone Justen Gale MD Primary Care Provider David Roberts APRN, LOCOMOTIVE ENGINEER Unavailable [phone] Annel Rod MD Unavailable Reason for Visit * Reason Comments Medication Refill Encounter Details Date Type Department Care Team (Late st Contact Info) Description 02/07/2023 [facility]ill [facility] #2 [place] [address] Pili Elkins APRN, LOCOMOTIVE ENGINEER #[address] [address] Medication Refill Social History Tobacco [...] Group - Endocrinology [facility] #2 [place] [address] Annel Rod MD #2 [facility] [address] [place] [address] 11/13/2024 2:00 PM CDT Appointment [facility] Cardiology Services 1 [place] [address] Angelito Alegria APRN, LOCOMOTIVE ENGINEER #2 [facility] [address] [place] [address] Discharge Disposition: Discharged to home or Selfcare documented as of this encounter Visit Diagnoses Diagnosis Essential hypertension Unspecified essential hypertension documented in this encounter Additional Health Concerns Infection Onset Date Last Indicated Resolved Time COVID - 19 08/01/2024 08/01/2024 08/01/2024 3:20 PM CDT Assessment Noted Time PHQ-9 Depression Total Score: 8 01/18/20 2:24 PM CDT documented as of this encounter Care Teams Poultry Raiser Relationship Specialty Start Date End Date Justen Gale MD #2 [facility] [address] [place] [address] PCP - General Family Medicine 10/17/17 David Roberts APRN, LOCOMOTIVE ENGINEER #2 [place] [address] Nurse Practitioner Advanced Practice Nurse 01/31/22 Annel Rod MD #2 [facility] [address] [place] [address] Consulting Physician Endocrinology 07/01/22 documented as of this encounter
--- OUTSIDE RECORDS SUMMARY | 2024-10-06 19:03 | XMS_ITS | Encounter Summary ---
Author Organization [facility] Address [address] [place] [address] Phone Care Team Providers Care Business Planning Manager Name Role Phone Justen Gale MD Primary Care Provider David Roberts APRN, SAP BASIS ARCHITECT Unavailable Annel Rod MD Unavailable Reason for Visit * Reason Comments Medication Refill Encounter Details Date Type Department Care Team (Late st Contact Info) Description 04/13/2023 Refill [facility] - End[facility]ology - [place] #2 [place] [address] Annel Rod MD #[address] [address] Medication Refill Social History Tobacco [...] Jennifer Wang, RN - 04/14/2023 10:00 AM SOLAR/RENEWABLE ENERGY SALES Requested Prescriptions Pending Prescriptions Disp Refills ??? Continuous Blood Gluc Sensor (FreeStyle Eileen 2 Sensor) Misc [Pharmacy Med Name: FREESTYLE EILEEN 2 SENSOR] 6 Each 1 Sig: APPLY 1 SENSOR AND WEAR FOR 14 DAYS TO CHECK BLOOD SUGAR Next appt: 05/30/2023 R/RENEWABLE ENERGY SALES documented in this encounter Plan of Treatment Upcoming Encounters Date Type Department Care Team (Late st Contact Info) Description 10/22/2024 11:15 AM CDT Office [facility] - [place] #2 [place] [address] Annel Rod MD #2 [facility] [address] [place] [address] 11/13/2024 2:00 PM CDT [facility] 1 [place] [address] Angelito Alegria, ZAMZAM, SAP BASIS ARCHITECT #2 [facility] [address] [place] [address] Discharge Disposition: Discharged to home or Selfcare documented as of this encounter Visit Diagnoses Not on filedocumented in this encounter Additional Health Concerns Infection Onset Date Last Indicated Resolved Time COVID - 19 08/01/2024 08/01/2024 08/01/2024 3:20 PM CDT Assessment Noted Time PHQ-9 Depression Total Score: 8 01/18/20 2:24 PM CDT documented as of this encounter Care Teams Business Planning Manager Relationship Specialty Start Date End Date Justen Gale MD #2 [facility] [address] [place] [address] PCP - General Family Medicine 10/17/17 David Roberts APRN, SAP BASIS ARCHITECT #2 [place] [address] Nurse Practitioner Advanced Practice Nurse 01/31/22 Annel Rod MD #[address] [address] Consulting Physician Endocrinology 07/01/22 documented as of this encounter
--- OUTSIDE RECORDS SUMMARY | 2024-10-06 19:03 | XMS_ITS | Encounter Summary ---
Author Organization [facility] Address [address] [place] [address] Care Team Providers Care Product Development Assistant Name Role Phone Justen Gale MD Primary Care Provider [phone] Encounter Details Date Type Department Care Team (Late st Contact Info) Description 08/14/2024 Results Follow-Up ER at [facility] [address] [place] [address] Josué Bernal, STEPH [address] [place] [address] Social History Tobacco Use Types Packs/Day [...] medical care, and heating? 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
--- OUTSIDE RECORDS SUMMARY | 2024-10-06 19:03 | XMS_ITS | Encounter Summary ---
Author Organization [facility] Address [address] [place] [address] Phone Care Team Providers Care Computer Publisher Name Role Phone Justen Gale MD Primary Care Provider Daivd Roberts APRN, OCCUPATIONAL WORK EXPERIENCE TEACHER Unavailable Annel Rod MD Unavailable Reason for Visit * Reason Comments Medication Refill Encounter Details Date Type Department Care Team (Late st Contact Info) Description 08/30/2022 Refill [facility] #2 [place] [address] Justen Gale MD #[address] [address] Medication Refill Social History Tobacco Use Types [...] [place] 05/02/22 Office Visit Justen Gale MD [facility] [place] 03/03/22 Office Visit Pili Elkins APRN, NETTA [facility] [place] 01/03/22 Office Visit Dannielle Berg PAC [facility] [place] 12/07/21 Office Visit Pili Elkins APRN, NETTA [facility] [place] 11/09/21 Office Visit Pili Elkins APRN, NETTA [facility] [place] 10/08/21 Office Visit Angelito Alegria APRN, NETTA [facility] [place] 08/30/21 [facility] recent visits within past [...] Visit [facility] - [facility] - [place] #2 [place] [address] Annel Rod MD #[address] [address] 11/13/2024 2:00 PM CDT [facility]ment [facility] Cardiology Services 1 [place] [address] Angelito Alegria, CUSTOMER SUPPORT CONSULTANT, OCCUPATIONAL WORK EXPERIENCE TEACHER #[address] [address] Discharge Disposition: Discharged to home or Selfcare documented as of this encounter Visit Diagnoses Not on filedocumented in this encounter Additional Health Concerns Infection Onset Date Last Indicated Resolved Time COVID - 19 08/01/2024 08/01/2024 08/01/2024 3:20 PM CDT Assessment Noted Time PHQ-9 Depression Total Score: 0 07/21/19 3:00 PM CDT documented as of this encounter Care Teams Computer Publisher Relationship Specialty Start Date End Date Justen Gale MD #[address] [address] PCP - General Family Medicine 10/17/17 David Roberts, CUSTOMER SUPPORT CONSULTANT, OCCUPATIONAL WORK EXPERIENCE TEACHER #2 [place] [address] Nurse Practitioner Advanced Practice Nurse 01/31/22 Annel Rod MD #[address] [address] Consulting Physician Endocrinology 07/01/22 documented as of this encounter
--- OUTSIDE RECORDS SUMMARY | 2024-10-06 19:03 | XMS_ITS ---
Author Organization [facility] Address [address] [facility] [place] [address] Care Team Providers Care Resistor Tester Name Role Phone Justen Gale MD Primary Care Provider [phone] Active Problems Problem Noted Date Diagnosed Date [...]
--- OUTSIDE RECORDS SUMMARY | 2024-10-06 19:03 | XMS_ITS | Encounter Summary ---
Author Organization [facility] Address [address] [place] [address] Phone Care Team Providers Care Customer Care Consultant Name Role Phone Justen Gale MD Primary Care Provider [phone] David Roberts APRN, STAFF RADIOGRAPHER Unavailable Annel Rod MD Unavailable Reason for Visit * Reason Onset Date Comments Sore Throat 09/02/2024 Encounter Details Date Type Department Care Team (Late st Contact Info) Description 09/02/2024 Nurse Triage [facility] [address] [place] [address] Justen Gale MD #[address] [address] Sore Throat Social History Tobacco Use Types Packs/Day Years Used Date Smoking Tobacco: Never Smokeless Tobacco: Never Alcohol Use Standard Drinks/Week Comments No 0 (1 standard drink = 0.6 oz pur e alcohol) [facility] Utilities Answer Date Recorded In the [...] Total Score - Questions 1-9 0 07/23 [facility] Occupat ional Health - Occupational [...] any time in the past 12 m [facility], were you homeless or living in a nursing home (including now)? No 08/06/2024 Education Answer [...] Pharmacy, medications, and allergies reviewed. Discussed utilizing [employer] to: discuss if they would prefer a [employer] message or phone call response - See [...] Ulcers - Caller Reports Outcome: Transfer to process server queue Reason: Caller denied all higher acuity questions The caller accepted this outcome. Caller Denied: * Struggling for each breath (severe trouble breathing) * Can't swallow saliva (drooling) documented in this encounter Plan of Treatment Upcoming Encounters Date Type Department Care Team (Late st Contact Info) Description 10/22/2024 11:15 AM CDT Office Visit [facility] - End[facility]ology - [place] #2 [place] [address] Annel Rod MD #[address] [address] 11/13/2024 2:00 PM CDT Appointment [facility] Cardiology Services 1 [place] [address] Angelito Alegria, POULTRY DRESSING WORKER, STAFF RADIOGRAPHER #2 [facility] [address] [place] [address] Discharge Disposition: Discharged to home or Selfcare documented as of this encounter Visit Diagnoses Not on filedocumented in this encounter Additional Health Concerns Assessment Noted Time PHQ-9 Depression Total Score: 0 08/02/19 25 1:09 PM CDT documented as of this encounter Care Teams Customer Care Consultant Relationship Specialty Start Date End Date Justen Gale MD #[address] [address] PCP - General Family Medicine 10/17/17 David Roberts APRN, STAFF RADIOGRAPHER #2 [place] [address] Nurse Practitioner Advanced Practice Nurse 01/31/22 Annel Rod MD #[address] [address] Consulting Physician Endocrinology 07/01/22 documented as of this encounter
--- OUTSIDE RECORDS SUMMARY | 2024-10-06 19:03 | XMS_ITS | Encounter Summary ---
Author Organization [facility] Address [address] [place] [address] Phone Care Team Providers Care Supervisor Drawing Name Role Phone Justen Gale MD Primary Care Provider David Roberts APRN, BROOMCORN SORTER Unavailable [phone] Annel Rod MD Unavailable Reason for Visit * Reason Onset Date Comments Advice Only 08/19/2024 Follow-up 08/19/2024 Encounter Details Date Type Department Care Team (Late st Contact Info) Description 08/19/[address] [facility] #2 [place] [address] Justen Gale MD #[address] [address] Advice Only; Follow-up Social History Tobacco Use Types Packs/Day Years Used Date Smoking Tobacco: Never Smokeless Tobacco: Never Alcohol Use Standard Drinks/Week Comments No 0 (1 standard drink = 0.6 oz pur e alcohol) [facility] Utilities Answer Date Recorded [...] you attend chur ch or pentecostalism services? More than 4 times per year [...] Total Score - Questions 1-9 0 07/23 [facility] - Occupational Stress Questionnaire Answer Date [...] in the past 12 m [facility], were you homeless or living in [...] visit * Telephone Encounter - Angelito Alegria, HANDBAG STITCHER, BROOMCORN SORTER - 08/19/2024 9:04 AM CDT Forwarding * Telephone Encounter - Isaura Weiss RN - 08/19/2024 8:37 AM CDT Situation: Strep throat follow up Background: Patient contacting PCP office. Patient was seen in ED on 08/09 and 08/12 in [place] (records in chart). Diagnosed with strep. Assessment: [...] CDT Symptom: Sore Throat Outcome: Transfer to leach runner queue Reason: Caller denied all higher acuity questions The caller accepted this outcome. Caller Denied: * Struggling for each breath (severe trouble breathing) * Can't swallow saliva (drooling) documented in this encounter Plan of Treatment Upcoming Encounters Date Type Department Care Team (Late st Contact Info) Description 10/22/2024 11:15 AM CDT Office Visit [facility] - Endocrinology - [place] #2 [place] [address] Annel Rod MD #[address] [address] 11/13/2024 2:00 PM CDT Appointment [facility] Cardiology Services 1 [place] [address] Angelito Alegria, HANDBAG STITCHER, BROOMCORN SORTER #[address] [address] Discharge Disposition: Discharged to home or Selfcare documented as of this encounter Visit Diagnoses Not on filedocumented in this encounter Additional Health Concerns Assessment Noted Time PHQ-9 Depression Total Score: 0 08/02/19 25 1:09 PM CDT documented as of this encounter Care Teams Supervisor Drawing Relationship Specialty Start Date End Date Justen Gale MD #2 [facility] [address] [place] [address] PCP - General Family Medicine 10/17/17 David Roberts APRN, BROOMCORN SORTER #2 [place] [address] Nurse Practitioner Advanced Practice Nurse 01/31/22 Annel Rod MD #[address] [address] Consulting Physician Endocrinology 07/01/22 documented as of this encounter
--- OUTSIDE RECORDS SUMMARY | 2024-10-06 19:03 | XMS_ITS | Encounter Summary ---
Author Organization [facility] Address [address] [place] [address] Phone Care Team Providers Care Sewer Cleaner Name Role Phone Justen Gale MD Primary Care Provider [phone] David Roberts APRN, CLIENT DELIVERY SPECIALIST Unavailable [phone] Annel Rod MD Unavailable Reason for Visit * Reason Comments Medication Refill Encounter Details Date Type Department Care Team (Late st Contact Info) Description 03/05/2023 Refill [facility] - Family Medicine [facility] #2 [place] [address] Pili Elkins APRN, CLIENT DELIVERY SPECIALIST #[address] [address] Medication Refill Social History Tobacco [...] discontinued on 10/19/2022 by Justen Gale MD NICAL STENOGRAPHER documented in this encounter Plan of Treatment Upcoming Encounters Date Type Department Care Team (Late st Contact Info) Description 10/22/2024 11:15 AM CDT Office Visit [facility] - End[facility]ology - [place] #2 [place] [address] Annel Rod MD #2 [facility] [address] [place] [address] 11/13/2024 2:00 PM CDT [facility] 1 [place] [address] Angelito Alegria APRN, CLIENT DELIVERY SPECIALIST #2 [facility] [address] [place] [address] Discharge Disposition: Discharged to home or Selfcare documented as of this encounter Visit Diagnoses Diagnosis Essential hypertension Unspecified essential hypertension documented in this encounter Additional Health Concerns Infection Onset Date Last Indicated Resolved Time COVID - 19 08/01/2024 08/01/2024 08/01/2024 3:20 PM CDT Assessment Noted Time PHQ-9 Depression Total Score: 8 01/18/20 2:24 PM CDT documented as of this encounter Care Teams Sewer Cleaner Relationship Specialty Start Date End Date Justen Gale MD #2 [facility] [address] [place] [address] PCP - General Family Medicine 10/17/17 David Roberts APRN, NETTA #2 [place] [address] Nurse Practitioner Advanced Practice Nurse 01/31/22 Annel Rod MD #2 [facility] [address] [place] [address] Consulting Physician Endocrinology 07/01/22 documented as of this encounter
--- OUTSIDE RECORDS SUMMARY | 2024-10-06 19:03 | XMS_ITS | Encounter Summary ---
Author Organization [facility] Address [address] [place] [address] Phone Care Team Providers Care Slate Roofer Helper Name Role Phone Justen Gale MD Primary Care Provider [phone] David Roberts APRN, OCCUPATIONAL THERAPIST ASSISTANTS Unavailable Annel Rod MD Unavailable Reason for Visit * Reason Comments Medication Refill Encounter Details Date Type Department Care Team (Late st Contact Info) Description 02/07/2023 Refill [facility] - Family Medicine [facility] #2 [place] [address] Catrina Quiñonez MD #2 [place] [address] Medication Refill Social History Tobacco Use Types [...] Visit Pili Elkins APRN, NETTA [facility] [place] Showing recent visits within past 365 [...] Visit [facility] - Endocrinology - [place] #2 [place] [address] Annel Rod MD #[address] [address] 11/13/2024 2:00 PM CDT Appointment [facility] Cardiology Services 1 [place] [address] Angelito Alegria, PEGGER, OCCUPATIONAL THERAPIST ASSISTANTS #[address] [address] Discharge Disposition: Discharged to home or Selfcare documented as of this encounter Visit Diagnoses Not on filedocumented in this encounter Additional Health Concerns Infection Onset Date Last Indicated Resolved Time COVID - 19 08/01/2024 08/01/2024 08/01/2024 3:20 PM CDT Assessment Noted Time PHQ-9 Depression Total Score: 8 01/18/20 2:24 PM CDT documented as of this encounter Care Teams Slate Roofer Helper Relationship Specialty Start Date End Date Justen Gale MD #[address] [address] PCP - General Family Medicine 10/17/17 David Roberts PEGGER, OCCUPATIONAL THERAPIST ASSISTANTS #2 [place] [address] Nurse Practitioner Advanced Practice Nurse 01/31/22 Annel Rod MD #[address] [address] Consulting Physician Endocrinology 07/01/22 documented as of this encounter
--- OUTSIDE RECORDS SUMMARY | 2024-10-06 19:03 | XMS_ITS | Clinical Summary ---
Author Organization [facility] Address [address] [place] [address] Care Team Providers Care Mine Deputy Name Role Phone Justen Gale MD Primary Care Provider [phone] Source Comments [facility],non-[facility] health Affiliates and Associated Physician Practices is amultiple site organization consisting of ambulatory clinics and hospital sitesin [place], [place], [place] and [place]. This disclosure is being madepursuant to the Care Everywhere program and may not contain all information available regarding this patient. Last updated 18.[facility] [place] Allergies Active Allergy Reactions Criticality Noted Date [...] Gluc Sensor (FreeStyle Eileen 2 Sensor Systm) [facility] APPLY 1 SENSOR AND [...] Team Description 08/14/2024 [place] [address] Josué Bernal PA-C 08/13/2024 Telephone ER at [facility] [address] [place] [address] Jordana Abdul MD ER UC Follow-up 08/09/2024 6:46 PM CDT - 08/09/2024 9:35 PM CDT Emergency ER at [address] [id number] Yasmin Matthew DO Shortness of breath; Strep [...] and heating? Somewhat hard 05/16/2023 [facility] [place] [facility] Occupat ional [facility] - Occupational Stress [...] in a longterm (including now)? No 05/16/2023 Comments No Sex and Gender Information Value Date Recorded Sex Assigned at Not on file Legal Sex Female 6:53 PM DRAPERY AND UPHOLSTERY MEASURER Gender Identity Not on file Sexual Orientation [...] this topic Medical Devices Implanted Type Area Forest Resource Specialist Device Identifier Shelf Expiration Date Model / Serial / Lot Lead Nrstm 60cm Penta 3mm Pdl 16 Chnl Implanted:Qt y: 1 on 09/16/2021 by Maxi Gregg MD at [facility] Right: Spine Thoracic Advanced [employer] [id number] / / Description:CAMILO Slnt Dura Duraseal Pg Trilysine Amine 5 Implanted:Qt y: 1 on 09/16/2021 by Maxi Gregg MD at [facility] Right: Spine Thoracic Integra [employer] David [id number] / / Description:CAMILO Proclaim Plus 5 Implanted:Qt y: 1 on 02/16/2023 by Maxi Gregg MD at [facility] Left: Back Cardenas Spine [id number] 11/07/2024 3670 / [id number] / Explanted Type Area Forest Resource Specialist Device Identifier Shelf Expiration Date Model / Serial / Lot Gntr Nrstm 1.95inx2.19in Proclaim Elt Implanted:Qty: 1 on 09/16/2021 by Maxi Gregg MD at [facility] Explanted:Qty: 1 on 10/30/2021 by Maxi Gregg MD at [facility] Right: Spine Thoracic St Leoncio [...] 08/09/2024 8:46 PM CDT [facility] Specific [place] UA 1.014 1.005 - 1.030 08/09/2024 8:46 [...] 5 # /hpf 08/09/2024 8:46 PM CDT [facility] Bacteria UA Trace(A) None Seen 08/09/2024 8:46 PM CDT [facility] Squamous Epithelial Cells None Seen 0 - 5 /hpf 08/09/2024 8:46 PM CDT [facility] Mucus UA 1+ /LPF 08/09/2024 8:46 PM CDT [facility] Urine URINE SPECIMEN OBTAINED BY CLEAN CATCH PROCEDURE / Unknown 08/09/2024 8:39 PM CDT 08/09/2024 8:39 PM CDT Narrative [facility] - 08/09/2024 8:46 PM CDT Yasmin Matthew DO LAB - URINALYSIS ORDERABLES Final Result Performing Organization Address City/State/[facility] Co de Phone Number [facility] [address] [place] [address] * (ABNORMAL) CULTURE URINE (08/09/2024 8:39 PM CDT) [facility] Culture Urine 50,000-100,000 CFU/mL Escherichia coli(A) TERRANCE 08/12/2024 4:04 AM CDT [facility] Culture Urine 10,000-50,000 CFU/mL urogenital evelio TERRANCE 08/12/2024 4:04 AM CDT [facility] Urine URINE SPECIMEN OBTAINED BY CLEAN CATCH PROCEDURE / Unknown 08/09/2024 8:39 PM CDT 08/09/2024 8:39 PM CDT Narrative [facility] - 08/12/2024 4:04 AM CDT [...] LAB - MICROBIOLOGY ORDERABLE S Final Result [facility] [address] [facility] [place], [place] [address], [facility] [phone] * SARS-COV-2 (COVID-19) FLU A/B RSV PCR RAPID (08/09/2024 7:40 PM CDT) [facility] COVID-19 PCR Not detected Not detected 08/10/19 8:24 PM CDT [facility] Influenza A PCR Not detected Not detected 08/09/2024 8:24 PM CDT [facility] Influenza B PCR Not detected Not detected 08/09/2024 8:24 PM CDT [facility] RSV PCR Not detected Not detected 08/09/2024 8:24 PM CDT [facility] Microbiology SPECIMEN FROM NASOPHARYNGEAL STRUCTURE / Unknown Collection / Unknown 08/09/2024 7:40 PM CDT 08/09/2024 7:40 PM CDT Narrative [facility] - 08/09/2024 8:24 [...] ORDERABLE S Final Result Performing Organization Address [facility] Co de Phone Number [facility] [address] [place] [phone] * (ABNORMAL) STREP A SCREEN DIRECT W RFLX STREP A CULTURE (08/09/2024 7:40 PM CDT) [facility] Strep A Rapid Positive(A ) Negative 08/09/2024 7:53 PM CDT [facility] Microbiology ENTIRE THROAT (SURFACE REGION OF NECK) / Unknown Collection / Unknown 08/09/2024 7:40 PM CDT 08/09/2024 7:40 PM CDT Yasmin Vipul LAB - MICROBIOLOGY ORDERABLE S Final Result Performing Organization Address [facility] de Phone Number [facility] [address] [place] [address] * EKG 12-LEAD (08/09/2024 7:06 PM CDT) Ventricular Rate 86 BPM [facility] Atrial Rate 86 BPM [facility] P-R Interval 122 ms [facility] QRS Duration ms 86 ms [facility] Q-T Interval ms 370 ms [facility] QTC Calculation (Bezet) 442 ms [facility] Calculated R [place] 8 degrees [facility] Calculated T [place] 51 degrees [facility] Interpretation EKG NORMAL SINUS RHYTHM WITH SINUS ARRHYTHMIA SEPTAL INFARCT , AGE UNDETERMINED ABNORMAL ECG WHEN COMPARED WITH ECG OF 09-AUG-2024 13:34, SINUS RHYTHM HAS REPLACED ECTOPIC ATRIAL RHYTHM SEPTAL INFARCT IS NOW PRESENT Confirmed by Gil Perrin MD ([id number]) on 08/10/2024 9:03:52 AM [facility] 08/09/2024 7:06 PM CDT 08/10/2024 9:03 AM CDT Josué Bernal PA-C ECG ORDERABLES Edited Re sult - Final Performing Organization Address City/[facility]/ZIP Co de Phone Number [facility] * TROPONIN-I HIGH SENSITIVE REFLEX 1HOUR (08/09/2024 3:29 PM CDT) [facility] Troponin I High Sensitive 5 <=14 ng/L 08/09/2024 4:50 PM CDT [facility] Delta Troponin I HS 08/09/2024 4:50 PM CDT [facility] Comment:Delta value intentio yissel not calculated. Baseline to 1 hour specimen collection interval exceeded. Blood BLOOD SPECIMEN / Unknown Venipuncture / Unknown 08/09/2024 3:29 PM CDT 08/09/2024 3:33 PM CDT Josué Bernal PA-C LAB - CHEMISTRY ORDERABLE S Final Result Performing Organization Address [facility] Co de Phone Number [facility] [address] [place] [address] * XR CHEST 2VW (08/09/2024 1:59 PM CDT) Anatomical Region Laterality Modality Chest Radiographic Lizeth ging 08/09/2024 2:22 PM CDT Impressions 08/09/2024 2:24 PM CDT IMPRESSION: No evidence of acute pulmonary disease. > Interpreting Provider: Jusetn Lynch MD on 08/09/2024 2:24 PM Narrative [...] BASELINE + 1HR (08/09/2024 1:40 PM CDT) [facility] Troponin I High Sensitive 6 <=14 ng/L 08/09/2024 2:14 PM CDT [facility] Blood BLOOD SPECIMEN / Unknown Venipuncture / Unknown 08/09/2024 1:40 PM CDT 08/09/2024 1:43 PM CDT Josué Bernal PA-C LAB - CHEMISTRY ORDERABLE S Final Result [facility] [address] [place] [address] * (ABNORMAL) CBC W AUTO DIFFERENTIAL (08/09/2024 1:40 PM CDT) [facility] WBC 15.6(H) 4.0 - 10.7 x10E9/L 08/09/2024 1:47 PM CDT [facility] RBC Count 4.44 3.90 - 5.20 x10E12/L 08/09/2024 1:47 PM CDT [facility] Hemoglobin 13.0 11.9 - 15.8 g/dL 08/09/2024 1:47 PM CDT [facility] Hematocrit 40.4 34.8 - 46.1 % 08/09/2024 1:47 PM CDT [facility] MCV 91.0 80.0 - 98.0 fL 08/09/2024 1:47 PM CDT [facility] MCH 29.3 26.7 - 33.6 pg 08/09/2024 1:47 PM CDT [facility] MCHC 32.2 31.7 - 36.3 g/dL 08/09/2024 1:47 PM CDT [facility] RDW-CV 13.0 11.3 - 14.8 % 08/09/2024 1:47 PM CDT [facility] Platelet Count 249 150 - 420 x10E9/L 08/09/2024 1:47 PM CDT [facility] MPV 9.6 7.8 - 11.4 fL 08/09/2024 1:47 PM CDT [facility] Neutrophil % 72.7 41.0 - 74.0 % 08/09/2024 1:47 PM CDT [facility] Lymphocyte % 18.0 17.0 - 47.0 % 08/09/2024 1:47 PM CDT [facility] Monocyte % 7.5 3.0 - 11.0 % 08/09/2024 1:47 PM CDT [facility] Eosinophil % 1.2 0.0 - 7.0 % 08/09/2024 1:47 PM CDT [facility] Basophil % 0.2 0.0 - 1.6 % 08/09/2024 1:47 PM CDT [facility] Immature Granulocytes % 0.4 0.0 - 1.0 % 08/09/2024 1:47 PM CDT [facility] Neutrophil Absolute 11.35(H) 1.60 - 7.50 x10E9/L 08/09/2024 1:47 PM CDT [facility] Lymphocyte Absolute 2.82 1.00 - 4.40 x10E9/L 08/09/2024 1:47 PM CDT [facility] Monocyte Absolute 1.18(H) 0.15 - 1.00 x10E9/L 08/09/2024 1:47 PM CDT [facility] Eosinophil Absolute 0.19 0.00 - 0.60 x10E9/L 08/09/2024 1:47 PM CDT [facility] Basophil Absolute 0.03 0.00 - 0.13 x10E9/L 08/09/2024 1:47 PM CDT [facility] Blood BLOOD SPECIMEN / Unknown Venipuncture / Unknown 08/09/2024 1:40 PM CDT 08/09/2024 1:43 PM CDT Josué MCKEON-C LAB - HEMATOLOGY ORDERABL ES Final Result Performing Organization Address [facility] Co de Phone Number [facility] [address] [place] [phone] * B-TYPE NATRIURETIC PEPTIDE (08/09/2024 1:40 PM CDT) BNP 29 <=100 pg/mL 08/09/2024 2:11 PM CDT [facility] Blood BLOOD SPECIMEN / Unknown Venipuncture / Unknown 08/09/2024 1:40 PM CDT 08/09/2024 1:43 PM CDT Narrative [facility] - 08/09/2024 2:11 [...] ORDERABLE S Final Result Performing Organization Address [facility] Co de Phone Number [facility] [address] [place] [address] * (ABNORMAL) COMPREHENSIVE METABOLIC PANEL (08/09/2024 1:40 PM CDT) [facility] Glucose 212(H) 70 - 99 mg/dL 08/09/2024 2:09 PM CDT [facility] Sodium 136 136 - 145 mmol/L 08/09/2024 2:09 PM CDT [facility] Potassium 3.9 3.5 - 5.1 mmol/L 08/09/2024 2:09 PM CDT [facility] Chloride 103 98 - 107 mmol/L 08/09/2024 2:09 PM CDT [facility] CO2 24 22 - 29 mmol/L 08/09/2024 2:09 PM T [facility] Calcium 9.4 8.4 - 10.4 mg/dL 08/09/2024 2:09 PM [facility] Anion Gap 9 6 - 16 mmol/L 08/09/2024 2:09 PM T [facility] BUN 19 7 - 26 mg/dL 08/09/2024 2:09 PM T [facility] Creatinine 0.82 0.57 - 1.11 mg/dL 08/09/2024 2:09 PM [facility] Alkaline Phosphatase 68 40 - 150 U/L 08/09/2024 2:09 PM CDT [facility] ALT 22 6 - 57 U/L 08/09/2024 2:09 PM T [facility] AST 23 10 - 48 U/L 08/09/2024 2:09 PM [facility] Protein Total 8.0 6.4 - 8.3 gm/dL 08/09/2024 2:09 PM T [facility] Albumin 3.3(L) 3.4 - 5.0 gm/dL 08/09/2024 2:09 PM [facility] Bilirubin Total 0.9 0.2 - 1.2 mg/dL 08/09/2024 2:09 PM [facility] eGFR by CKD-EPI 78(L) >=90 mL/min/1.7 3 m2 08/09/2024 2:09 PM [facility] Blood BLOOD SPECIMEN / Unknown Venipuncture / Unknown 08/09/2024 1:40 PM CDT 08/09/2024 1:43 PM CDT Josué MCKEON-Ana Laura LAB - CHEMISTRY ORDERABLE S Final Result Performing Organization Address [facility] de Phone Number [facility] [address] [place], [place] [phone] * (ABNORMAL) MAGNESIUM BLOOD (08/09/2024 1:40 PM CDT) Pathologist [facility] Magnesium 1.5(L) 1.6 - 2.6 mg/dL 08/09/2024 2:09 PM CDT [facility] Blood BLOOD SPECIMEN / Unknown Venipuncture / Unknown 08/09/2024 1:40 PM CDT 08/09/2024 1:43 PM CDT Josué MCKEON-C LAB - CHEMISTRY ORDERABLE S Final Result Performing Organization Address [facility] de Phone Number [facility] [address] [place] [address] * CK BLOOD (08/09/2024 1:40 PM CDT) [facility] CK 107 29 - 168 U/L 08/09/2024 7:44 PM CDT [facility] Blood BLOOD SPECIMEN / Unknown Venipuncture / Unknown 08/09/2024 1:40 PM CDT 08/09/2024 1:43 PM CDT Yasmin Matthew DO LAB - CHEMISTRY ORDERABLES F inal Result Performing Organization Address [facility] Co de Phone Number [facility] [address] [place] [address] * HEPATITIS C AB SCREEN RFLX NAAT QUANT (02/21/2023 6:30 PM CDT) [facility] Hepatitis C Antibody Non-react hugh Non-reac tive 02/21/2023 7:32 PM CDT [facility] Comment:Hepatitis C Antibody screen indicates [...] ORDERABLES Fi nal Result Performing Organization Address City/[facility]/ZIP Co de Phone Number [facility] [address] [place] [address], [place] [phone] * (ABNORMAL) HEMOGLOBIN A1C (12/25/2022 3:56 AM CDT) Hemoglobin A1c 8.6(H) <=5.6 % 12/25/2022 2:47 PM CDT [facility] Estimated Average Glucose 200 mg/dL 12/25/2022 2:47 PM CDT [facility] Comment: HbA1c Interpretation: Normal : < 5.7% Pre-diabetes: 5.7-6.4% Diabetes: Equal to or greater than 6.5% Test results diagnostic of diabetes should be repeated for confirmation. Treatment target values recommended by ADA and other clinical organizations should be used to evaluate metabolic control in patients. Reference: [place] [employer], Standards of Care in Diabetes [...] LAB - CHEMISTRY ORDERA BLES Final Result [facility] [address] [place] [address], [place] [phone] from Last 3 Months or Most Recently [...] 3:37 AM 03/23/2023 7:14 PM Care Teams Mine Deputy Relationship Specialty Start Date End Date Justen Gale MD PCP - General 07/05/21
--- OUTSIDE RECORDS SUMMARY | 2024-10-06 19:03 | XMS_ITS | Encounter Summary ---
Author Organization [facility] Address [address] [place] [address] Phone Care Team Providers Care Sorting Supervisor Name Role Phone Justen Gale MD Primary Care Provider David Roberts APRN, MATRIX SUPERVISOR Unavailable [phone] Annel Rod MD Unavailable Reason for Visit * Reason Comments Medication Refill Encounter Details Date Type Department Care Team (Late st Contact Info) Description 07/14/2022 Refill [facility] [address] [place] [address] Justen Gale MD #[address] [address] Medication Refill Social History Tobacco Use Types [...] Visit [facility] - Endocrinology - [place] [address] [place] [address] Annel Rod MD #2 [facility] [address] [place] [address] 11/13/2024 2:00 PM CDT [facility] [address] [place] [address] Angelito Alegria APRN, MATRIX SUPERVISOR #2 [facility] [address] [place] [address] Discharge Disposition: Discharged to home or Selfcare documented as of this encounter Visit Diagnoses Not on filedocumented in this encounter Additional Health Concerns Infection Onset Date Last Indicated Resolved Time COVID - 19 08/01/2024 08/01/2024 08/01/2024 3:20 PM CDT Assessment Noted Time PHQ-9 Depression Total Score: 0 07/21/19 21 3:00 PM CDT documented as of this encounter Care Teams Sorting Supervisor Relationship Specialty Start Date End Date Justen Gale MD #2 [facility] [address] [place] [address] PCP - General Family Medicine 10/17/17 David Roberts, AIR CONTROL/ANTI AIR WARFARE OFFICER, MATRIX SUPERVISOR [address] [place] [address] Nurse Practitioner Advanced Practice Nurse 01/31/22 Annel Rod MD #2 [facility] [address] [place] [address] Consulting Physician Endocrinology 07/01/22 documented as of this encounter
--- OUTSIDE RECORDS SUMMARY | 2024-10-06 19:03 | XMS_ITS | Encounter Summary ---
Author Organization [facility] Address [address] [place] [address] Phone Care Team Providers Care Steel Wool Machine Operator Name Role Phone Liu Jerez MD Unavailable [phone] Albert Corbin MD Unavailable Justen Gale MD Primary Care Provider [phone] Khris Arthur MD Unavailable [phone] Ko Melendez MD Unavailable [phone] John Paul Moyer MD Unavailable Annel Rod MD Unavailable Anali MARSHALL MD, Carlos M. Unavailable [phone] Encounter Details Date Type Department Care Team [...] on file Legal Sex Female 12:24 AM PONY EDGER Gender Identity Not on file Sexual Orientation [...] COVID: Recovered 02/10/2022 02/10/2022 06/10/2022 3:05 AM PONY EDGER Exposure, COVID-19 Comment:Added automatically based on COVID19 lab answers indicating exposure risk 02/11/2022 02/11/2022 02/15/2022 9:06 AM C DT COVID: Suspected 05/14/2022 05/14/2022 05/14/2022 10:41 AM PONY EDGER COVID: Suspected 06/07/2022 06/07/2022 06/07/2022 12:28 PM PONY EDGER COVID: Suspected 06/21/2022 06/21/2022 06/21/2022 2:12 AM PONY EDGER COVID: Suspected 10/05/2022 10/05/2022 10/05/2022 7:40 PM CDT COVID: Suspected 01/04/2024 01/04/2024 01/04/2024 10:30 PM CDT COVID: Suspected 02/14/2024 02/14/2024 02/15/2024 12:36 AM CDT COVID: Suspected 07/01/2024 07/01/2024 07/01/2024 2:53 PM CDT COVID: Suspected 07/01/2024 07/01/2024 07/02/2024 3:05 AM CDT documented as of this encounter Care Teams Steel Wool Machine Operator Relationship Specialty Start Date End Date Justen Gale MD 2 [facility] [address] [place] [address] PCP - General 10/09/17 Liu Jerez MD Consulting Physician Gastroenterology 07/28/[address] [place] [address] [facility] [address] [place] [address] Consulting Physician Pulmonary Disease 08/03/17 [place] [address] [place] [address] [address] [place] [address] Medical Oncologist/Ampoule Filler Medical Oncology 10/23/17 [place] [address] [address] Surgeon Orthopedic Surgery 10/23/17 [place] [address] [facility] [address] [place] [address] Consulting Physician Pain Management 10/23/17 [place] [address] [address] Referring Physician General Surgery 01/26/18 [place] [address] [facility] [address] [place] [address] Consulting Physician Neurology 01/26/18 documented as of this encounter
--- OUTSIDE RECORDS SUMMARY | 2024-10-06 19:03 | XMS_ITS | Encounter Summary ---
Author Organization [facility] Address [address] [place] [address] Phone Care Team Providers Care Ent Consultant Name Role Phone Justen Gale MD Primary Care Provider [phone] David Roberts APRN, OPERATING ROOM MANAGER Unavailable Annel Rod MD Unavailable Reason for Visit * Reason Comments Medication Refill Encounter Details Date Type Department Care Team (Late st Contact Info) Description 08/07/2023 Refill [facility] - Endocr[facility]ology - [place] [address] [place] [address] Annel Rod MD #[address] [address] Medication Refill Social History [...] Description 10/22/2024 11:15 AM CDT Office Visit [facility] - Endocrinology [facility] #[address] [place] [address] Annel Rod MD #[address] [address] 11/13/2024 2:00 PM CDT [facility] 1 [place] [address] Angelito Alegria APRN, NETTA #[address] [address] Discharge Disposition: Discharged to home or Selfcare documented as of this encounter Visit Diagnoses Not on filedocumented in this encounter Additional Health Concerns Infection Onset Date Last Indicated Resolved Time COVID - 19 08/01/2024 08/01/2024 08/01/2024 3:20 PM CDT Assessment Noted Time PHQ-9 Depression Total Score: 8 01/18/20 2:24 PM CDT documented as of this encounter Care Teams Ent Consultant Relationship Specialty Start Date End Date Justen Gale MD #[address] [place] [address] PCP - General Family Medicine 10/17/17 David Roberts APRN, OPERATING ROOM MANAGER [address] [place] [address] Nurse Practitioner Advanced Practice Nurse 01/31/22 Annel Rod MD #[address] [address] Consulting Physician Endocrinology 07/01/22 documented as of this encounter
--- NOTE | 2024-10-06 19:13 | ED.BACK ---
HPI - Back Pain/Injury General Chief Complaint: Back Pain/Injury Stated Complaint: back pain and RLQ skin irritation Time Seen by Provider: 10/06/24 18:42 History of Present Illness HPI Narrative: Patient is a 69-year-old female who presents to the ER with lower back pain. She reports she has chronic back pain but the pain has worsened again. Patient reports the pain is centralized on her lower spine. She was evaluated in this ER last week for the same complaint. Pt denies urinary symptoms, but reports I always have funky urine because of my diabetes. She reports she has hydrocodone at home for her chronic back pain. Patient endorses a history of CHF, and polymyositis (an autoimmune disease). She denies any chest pain, recent fevers, or hematuria. Related Data Home Medications ?Medication ?Instructions ?Recorded ?Confirmed ?Last Taken ?Type exemestane 25 mg tablet 25 mg PO HS 01/06/20 06/20/24 12/04/23 22:00 History insulin glargine 100 unit/mL (3 32 unit subcut QAM 01/06/20 06/20/24 12/04/23 11:00 History mL) subcutaneous pen (Lantus Solostar U-100 Insulin) ropinirole 5 mg tablet 5 mg PO HS 01/06/20 06/20/24 12/04/23 22:00 History insulin lispro 100 unit/mL 28 unit subcut TID 03/19/22 06/20/24 Unknown History subcutaneous pen (Humalog KwikPen (U-100) Insulin) oxybutynin chloride 15 mg 15 mg PO DAILY 11/06/22 06/20/24 12/04/23 11:00 History tablet,extended release 24 hr gabapentin 300 mg capsule 300 mg PO TID 06/25/23 06/20/24 12/04/23 22:00 History Allergies Allergy/AdvReac Type Severity Reaction Status Date / Time ceftriaxone Allergy Severe SOB Verified 10/02/24 23:22 cephalexin Allergy Severe Difficulty Verified 10/02/24 23:22 Breathing Cephalosporins Allergy Severe Difficulty Verified 10/02/24 23:22 Breathing lorazepam Allergy Severe Swelling Verified 10/02/24 23:22 trazodone Allergy Severe Swelling Verified 10/02/24 23:22 of Lip/Tongue/Throat metoclopramide Allergy Intermediate Other Verified 10/02/24 23:22 chlorhexidine Allergy Mild BLISTERING Verified 10/02/24 23:22 levofloxacin Allergy Mild Hives / Verified 10/02/24 23:22 Red Face ketorolac Allergy Itching Verified 10/02/24 23:22 latex Allergy Rash Verified 10/02/24 23:22 meropenem Allergy Rash Verified 10/02/24 23:22 nitrofurantoin Allergy Itching Verified 10/02/24 23:22 sulfamethoxazole (From Allergy Itching Verified 10/02/24 23:22 Sulfamethoxazole-Trimethoprim) trimethoprim (From Allergy Itching Verified 10/02/24 23:22 Sulfamethoxazole-Trimethoprim) oxycodone AdvReac Mild Vomiting Verified 10/02/24 23:22 amlodipine AdvReac Swelling Verified 10/02/24 23:22 lisinopril AdvReac Swelling Verified 10/02/24 23:22 pregabalin AdvReac Swelling Verified 10/02/24 23:22 reslizumab AdvReac Unknown Verified 10/02/24 23:22 Review of Systems Review of Systems: All systems reviewed & are unremarkable except as noted in HPI and below PMFSH Past Medical History Medical History Throat pain in adult Oral ulcer Chronic anticoagulation Overactive bladder Type 2 diabetes mellitus Deep venous thrombosis Irritable bowel syndrome Restless leg syndrome Obstructive sleep apnea on CPAP Congestive heart failure Chronic back pain COVID-19 Collagenous colitis Morbid obesity Breast cancer Depression Anxiety Peripheral neuropathy Kidney stone Pulmonary embolism positive for coagulation workup Multiple thyroid nodules Surgical History Surgical History History of umbilical hernia repair History of colonoscopy Status post insertion of spinal cord stimulator History of cystoscopy History of ureter stent History of cholecystectomy History of bilateral mastectomy History of esophagogastroduodenoscopy (EGD) History of right oophorectomy History of total right knee replacement History of cardiac catheterization Reportedly negative for coronary artery disease. Family History Family History Mother Diabetes mellitus Acute myocardial infarction Cerebrovascular accident Hypertension Congestive heart failure Father Prostate carcinoma Sibling Breast cancer Acute myocardial infarction Chronic obstructive pulmonary disease Social History Social History (Reviewed 10/03/24 @ 01:14 by RAVIN Ybarra Social History: Surrogate medical decision maker: Jimmie Marques, spouse. Code status: Full code. Smoking packs per day: 0 Smoking cigarettes per day: 0.0 Years smoked: 2 Smoking pack-years: 0.00 Smoking status: Former smoker Second hand tobacco smoke exposure: Yes Alcohol intake: never Substance use: never Substance use type: does not use Do You Feel Safe in your Home?: Yes Lack of Transportation: No Lack of Food: Never True Current Housing: I Have Housing Concerned About Future Housing: No Difficulty Paying Gas/Electric Bills: No Difficulty Paying for Meds: No Currently Unemployed: No Education: Decline to Answer Difficulty w/ Childcare or Family Care: No Living arrangements: with family Additional occupation/education comments: Disabled. Spiritual care concerns: No Exam Narrative: GENERAL: Well appearing, obese, non-toxic, in no acute distress. HEAD: Normocephalic, atraumatic. NECK: Supple. No adenopathy, no masses. RESPIRATORY: Airway patent, respirations nonlabored. Clear to auscultation bilaterally, no rales, rhonchi, wheezing. CARDIOVASCULAR: Regular rate and rhythm without murmurs, rubs, or gallops. Peripheral pulses 2+ and equal bilaterally. ABDOMINAL: Soft, tender RLQ, nondistended, no hepatosplenomegaly. Normoactive BS. MUSCULOSKELETAL: Moves all extremities. Strength/ROM intact without gross deformities. Tenderness with palpation to lumbar spine SKIN: Warm, dry, normal color. Bilateral red rashes to LLQ and RLQ where pt injects herself with insulin-sensitive to the touch. NEURO: A&O X3. Speech clear. Cranial nerves II-XII intact. No ataxic movements. PSYCHIATRIC: Appropriate mood and affect. Normal interaction. Course Vital Signs Vital signs: Vital Signs Temperature 36.6 C 10/06/24 19:16 Pulse Rate 91 10/06/24 19:16 Respiratory Rate 18 10/06/24 19:16 Blood Pressure 151/74 H 10/06/24 19:16 Pulse Oximetry 97 10/06/24 19:16 Oxygen Delivery Room Air 10/06/24 19:16 Temperature 36.6 C 10/06/24 19:16 Pulse Rate 91 10/06/24 19:16 Respiratory Rate 18 10/06/24 19:16 Blood Pressure 151/74 H 10/06/24 19:16 Pulse Oximetry 97 10/06/24 19:16 Oxygen Delivery Room Air 10/06/24 19:16 MDM - Back Pain/Injury MDM Narrative Medical decision making narrative: Patient is a 69-year-old female who presents to the ER with lower back pain. She reports she has chronic back pain but the pain has worsened again. Patient reports the pain is centralized on her lower spine. She was evaluated in this ER last week for the same complaint. Pt denies urinary symptoms, but reports I always have funky urine because of my diabetes. She reports she has hydrocodone at home for her chronic back pain. Patient endorses a history of CHF, and polymyositis (an autoimmune disease). She denies any chest pain, recent fevers, or hematuria. * Pt reports she hasn't taken her Xarelto in 3 days because she ran out of her prescription and then forgot to pick it up today. She denies any shortness of breath, new leg swelling, or chest pain. Labs Ordered: CBC, CMP, UA Imaging Ordered: CT lumbar spine Medications Ordered: [place] p.o., lidocaine cream Results: Pt's CT lumbar spine indicates Degenerative disease and spinal stenosis, without acute compression fracture. Patient's CBC indicates a white blood cell count of 15.9. Her CMP indicates a sodium of 136, BUN of 23, glucose of 227. Her urinalysis indicates a 1+ glucose. Diagnosis: Acute on chronic back pain, abdominal skin irritation Patient Education/Shared MDM: Results of lab work and imaging shared with patient. She endorses mild improvement of symptoms following medication administration. Patient strongly advised to maintain hydration status upon discharge and follow-up with her PCP as soon as possible. She will be discharged home with a prescription for Keflex to prevent her abdominal irritation from turning into cellulitis. Strict return precautions provided. Patient verbalized understanding and is in agreement with plan. Vital signs stable at time of discharge. All questions answered. Differential Diagnosis Differential diagnosis: Likely lumbar radiculopathy, sciatica, strain of lumbar region and other (urinary tract infection, cellulitis) Lab Data Attestation: I reviewed the patient's lab results. 10/06/24 19:27 10/06/24 19:27 Labs: Lab Results 10/06/24 10/06/24 Range/Units 19:27 20:32 WBC 15.9 H (4.5-10.0) K/mm3 RBC 4.30 (4.2-5.4) M/mm3 Hgb 12.5 (12.0-15.0) g/dL Hct 39.5 (37.0-47.0) % MCV 91.9 (80-100) fl MCH 29.1 (26-34) pg MCHC 31.6 L (32-36) g/dl RDW 13.6 (11.5-14.5) % Plt Count 282 (150-375) k/mm3 MPV 9.4 (7.4-10.4) fl Immature Gran % (Auto) 0.6 H (0-0.5) % Neut % (Auto) 74.4 H (45.5-73.1) % Lymph % (Auto) 17.5 L (18.3-44.2) % [place] % (Auto) 6.8 (2.6-8.5) % Eos % (Auto) 0.4 (0-4.4) % Baso % (Auto) 0.3 (0.2-1.2) % Lymph # (Auto) 2.77 (0.9-3.2) K/mm3 [place] # (Auto) 1.1 H (0.1-0.6) K/mm3 Eos # (Auto) 0.1 (0-0.3) K/mm3 Baso # (Auto) 0.1 (0.0-0.1) K/mm3 Abs Immat Gran (auto) 0.09 H (0.00-0.031) K/mm3 Absolute Neuts (auto) 11.8 H (1.3-6.7) K/mm3 Absolute Nucleated RBC 0.000 (0.0-0.012) K/mm3 Nucleated RBC % 0.0 (0.0-0.2) % Sodium 136 L (137-145) mmol/L Potassium 4.0 (3.4-5.0) mmol/L Chloride 103 (98-107) mmol/L Carbon Dioxide 26 (22-30) mmol/L Anion Gap 7 (4-12) mmol/L BUN 23 H (7-17) mg/dL Creatinine 0.74 (0.7-1.0) mg/dL Estim Creat Clear Calc 81 ml/min Estimated GFR > 60 (59 - ) Glucose 227 H (65-110) mg/dL Calcium 9.6 (8.4-10.2) mg/dL Total Bilirubin 0.6 (0.2-1.3) mg/dL AST 32 (14-36) U/L ALT 34 (6-35) U/L Alkaline Phosphatase 65 (38-126) U/L Total Protein 7.7 (6.3-8.2) g/dL Albumin 4.0 (3.5-5.1) g/dL Urine Color Yellow (Yellow) Urine Appearance Clear (Clear) Urine pH 5.5 (5.0-9.0) Ur Specific [place] 1.023 (1.001-1.035) Urine Protein Trace (Negative) mg/dL Urine Glucose (UA) 1+ H (Negative) mg/dL Urine Ketones Negative (Negative) mg/dL Ur Blood (Man) Negative (Negative) Urine Nitrate Negative (Negative) Urine Bilirubin Negative (Negative) Urine Urobilinogen 0.2 (<2.0) mg/dL Leukocyte Esterase Rfl Negative (Negative) PAO/UL Urine RBC 0-2 (0-2) /hpf Urine WBC 0-5 (0-3) /hpf Ur Squamous Epith Cells None seen (Few) /hpf Urine Bacteria None seen /hpf Urine Casts 0-2 Imaging Data Attestation: I personally reviewed and interpreted this imaging study as follows: Radiologist's impression: Impressions Lumbar Spine CT 10/06/24 20:20 Impression: Degenerative disease and spinal stenosis, without acute compression fracture. Discharge Plan Discharge Clinical Impression: Low back pain, Cellulitis Patient Disposition: Home Condition: Stable Instructions: Antibiotic Form, Acute Low Back Pain (ED) Additional Instructions: Please return to the ER with any worsening symptoms. Follow-up with primary care provider as soon as possible. Take all medications as prescribed, including regularly scheduled medications. Complete your full dose of antibiotics. Patient Language: Nam[place]ian Prescriptions: New clindamycin HCl [Cleocin HCl] 300 mg capsule 300 mg PO BID Qty: 14 0RF lidocaine 5 % ointment 1 applic topical TID PRN (Reason: skin irritation) Qty: 50 0RF No Action gabapentin 300 mg capsule 300 mg PO TID omeprazole 40 mg capsule,delayed release(DR/EC) 40 mg PO DAILY 30 Days Qty: 30 2RF clobetasol 0.05 % gel 1 applic topical DAILY 14 Days Qty: 15 0RF Rx Instructions: to be pplied in the right cheek avoid eating or drinking for 30 minutes after application mupirocin [Centany] 2 % ointment 1 applic topical BID 30 Days Qty: 15 0RF exemestane 25 mg tablet 25 mg PO HS ropinirole 5 mg tablet 5 mg PO HS insulin glargine [Lantus Solostar U-100 Insulin] 100 unit/mL (3 mL) insulin pen 32 unit SUBCUT QAM insulin lispro [Humalog KwikPen Insulin] 100 unit/mL insulin pen 28 unit SUBCUT TID albuterol sulfate 90 mcg/actuation HFA aerosol inhaler 1 inh inhalation QID PRN (Reason: shortness of breath or wheezing) Qty: 6.7 0RF oxybutynin chloride 15 mg tablet extended release 24hr 15 mg PO DAILY Xarelto 20 mg tablet 20 mg PO 1700 Qty: 30 0RF hydrocodone-acetaminophen 10-325 mg tablet 1 tablet PO Q6H PRN (Reason: pain (scale score 7-10)) Qty: 10 0RF ondansetron 4 mg tablet,disintegrating 4 mg PO Q8H PRN (Reason: nausea and vomiting) Qty: 10 0RF Follow-up/Referrals: Shahla,Justen Spicer MD [Primary Care Provider] - Time of Disposition: 21:21
[2024-10-06 19:16] VITALS: BP 151/74; PULSE 91; RESP 18; TEMP 36.6; O2SAT 97
[2024-10-06] MEDS: HYDROcodone/acetaminophen (*CRX) 10-325 MG TABLET 1 TAB PO (19:30)
[2024-10-06 19:33] LABS: Basophils Absolute Auto 0.1 K/mm3 (0.0-0.1); Basophils Percent Auto 0.3 % (0.2-1.2); Eosinophils Absolute Auto 0.1 K/mm3 (0-0.3); Eosinophils Percent Auto 0.4 % (0-4.4); Hematocrit 39.5 % (37.0-47.0); Hemoglobin 12.5 g/dL (12.0-15.0); Immature Granulocyte Absolute 0.09 K/mm3 (0.00-0.031); Immature Granulocyte Percent A 0.6 % (0-0.5); Lymphocytes Absolute Auto 2.77 K/mm3 (0.9-3.2); Lymphocytes Percent Auto 17.5 % (18.3-44.2); Mean Corpuscular HGB Conc 31.6 g/dl (32-36); Mean Corpuscular Hemoglobin 29.1 pg (26-34); Mean Corpuscular Volume 91.9 fl (80-100); Mean Platelet Volume 9.4 fl (7.4-10.4); Monocytes Absolute Auto 1.1 K/mm3 (0.1-0.6); Monocytes Percent Auto 6.8 % (2.6-8.5); Neutrophils Absolute Auto 11.8 K/mm3 (1.3-6.7); Neutrophils Percent Auto 74.4 % (45.5-73.1); Platelet Count Result 282 k/mm3 (150-375); Red Cell Distribution Width 13.6 % (11.5-14.5); White Blood Count 15.9 K/mm3 (4.5-10.0)
[2024-10-06 19:44] LABS: Alanine Aminotransferase 34 U/L (6-35); Alkaline Phosphatase 65 U/L (38-126); Anion Gap 7 mmol/L (4-12); Aspartate Amino Transferase 32 U/L (14-36); Bilirubin,Total 0.6 mg/dL (0.2-1.3); Blood Urea Nitrogen 23 mg/dL (7-17); Calcium 9.6 mg/dL (8.4-10.2); Carbon Dioxide 26 mmol/L (22-30); Chloride 103 mmol/L (98-107); Estimated CRCL calculation 81 ml/min; Estimated Glomerular Filt Rate > 60; Glucose 227 mg/dL (65-110); Sodium 136 mmol/L (137-145); Total Protein 7.7 g/dL (6.3-8.2)
[2024-10-06 20:43] LABS: Add Urine Microscopic? YES; Appearance Urine Clear (Clear); Bacteria Urine None Seen /hpf; Bilirubin Urine Negative (Negative); Blood Urine Negative (Negative); Color Urine Yellow (Yellow); Glucose Urine UA 1+ mg/dL (Negative); Ketones Urine Negative (Negative); Leukocyte Esterase Ur Negative LEU/UL (Negative); Nitrate Urine Negative (Negative); Non Pathogenic Casts 0-2; Protein Urine Trace mg/dL (Negative); RBC Urine 0-2 /hpf (0-2); Specific Grav Ur 1.023 (1.001-1.035); Squamous Epithelial Cell Urine None Seen /hpf (Few); Urobilinogen Urine 0.2 mg/dL (<2.0); WBC Urine 0-5 /hpf (0-3); pH Urine 5.5 (5.0-9.0)
[2024-10-06 21:34] VITALS: BP 156/80; PULSE 80; RESP 18; TEMP 36.6; O2SAT 100
== END 2024-10-06 21:49 | disposition home or self-care (01) ==
PROVIDERS: Emergency Provider Registered Nurse; PCP Internal Medicine
DX: L03.311 Cellulitis of abdominal wall (principal); E11.65 Type 2 diabetes mellitus with hyperglycemia; I50.9 Heart failure, unspecified; M33.20 Polymyositis, organ involvement unspecified; E11.42 Type 2 diabetes mellitus with diabetic polyneuropathy; E66.01 Morbid (severe) obesity due to excess calories; Z68.42 Body mass index [BMI] 45.0-49.9, adult; K58.9 Irritable bowel syndrome, unspecified; G25.81 Restless legs syndrome; G47.33 Obstructive sleep apnea (adult) (pediatric); N32.81 Overactive bladder; F32.A Depression, unspecified; F41.9 Anxiety disorder, unspecified; Z96.82 Presence of neurostimulator; Z96.651 Presence of right artificial knee joint; Z86.16 Personal history of COVID-19; Z85.3 Personal history of malignant neoplasm of breast; Z87.891 Personal history of nicotine dependence; Z87.442 Personal history of urinary calculi; Z86.711 Personal history of pulmonary embolism; Z86.718 Personal history of other venous thrombosis and embolism; Z90.49 Acquired absence of other specified parts of digestive tract; Z90.13 Acquired absence of bilateral breasts and nipples; Z90.721 Acquired absence of ovaries, unilateral; Z79.4 Long term (current) use of insulin; Z79.01 Long term (current) use of anticoagulants; Z79.899 Other long term (current) drug therapy
CPT/HCPCS: 36415; 72131; 80053; 81001; 85025; 99284; A9270

== ENCOUNTER 2024-10-08 08:06 | Inpatient (IN) | payer MEDICARE, MEDICAID, SELFPAY ==
[2024-10-08] VITALS (11 sets, daily range): BP systolic 102–157; BP diastolic 60–90; PULSE 73–88; RESP 15–20; TEMP 36.1–36.9; O2SAT 95–100; BMI 54.1
--- NOTE | ~2024-10-08 | CT_ITS ---
EXAMINATION: CT abdomen pelvis w con DATE: 10/08/2024 10:52 INDICATION: Abdominal wall cellulitis TECHNIQUE: Computed tomography (CT) of the abdomen and pelvis was performed with 100 mL Omnipaque-350 intravenous contrast. Automated exposure control and iterative reconstruction technique were employe d. The dose-length product was 1638.08 mGy-cm. COMPARISON: 10/03/2024 FINDINGS: Mild dependent atelectasis in the bilateral lower lungs. Heart size is normal. Dense mitral annular c alcific lesion. No pericardial or pleural effusion. Incompletely visualized lower thoracic spinal sti mulator leads project over the central canal at level of T7-T8 on the journalism internship topogram. Cholecystectomy clips at the gallbladder fossa. Liver, spleen, pancreas, left kidney and bilateral adrenal glands ar e normal. 1.8 cm right renal cyst. Normal appendix. There is mild colonic diverticulosis with a sigmo id and descending colon predominance without adjacent inflammatory change to suggest diverticulitis. No bowel obstruction. Bladder, uterus and left adnexa are unremarkable. Right ovary is not visualize d and may be surgically absent. Postoperative changes of prior umbilical hernia repair and more cauda l infraumbilical/pelvic ventral hernia repair. There are couple small densities either calcifications or surgical clips along tract of scarring extending towards the umbilicus. There is some new skin th ickening along the left side of the umbilicus with underlying stranding in the subcutaneous fat at th e umbilicus and surrounding pannus. This is improved slightly since the CT from 5 days prior which is new since 06/21/2024 suggesting improving cellulitis. No evident abscess. Moderate osteitis pubis. [place] bilateral sacroiliitis. Moderate lumbar and severe lower thoracic spondylosis. IMPRESSION: 1. Likely improving cellulitis along the umbilicus and surrounding pannus. No abscess. 2. No acute intra-abdominal/pelvic process. Reviewed, dictated and finalized at location A. IMPRESSION: 1. Likely improving cellulitis along the umbilicus and surrounding pannus. No a bscess. 2. No acute intra-abdominal/pelvic process.
--- OUTSIDE RECORDS SUMMARY | 2024-10-08 08:13 | XMS_ITS | Clinical Summary ---
Author Organization [facility] Address [address] [place] [address] Care Team Providers Care Concrete Truck Driver Name Role Phone Justen Gale MD Primary Care Provider [phone] Source Comments [facility] Affiliates and Associated Physician Practices is amultiple site organization consisting of ambulatory clinics and hospital sitesin [place], [place], [place] and [place]. This disclosure is being madepursuant to the Care Everywhere program and may not contain all information available regarding this patient. Last updated 18.[facility] Metricly Allergies Active Allergy Reactions Criticality Noted Date [...] Team Description 08/14/2024 Results [place] [address] Josué Bernal PA-C 08/13/2024 Telephone ER at [facility] [address] [place] [place] [address] Jordana Abdul MD ER UC Follow-up 08/09/2024 6:46 PM CDT - 08/09/2024 9:35 PM CDT Emergency ER at [address] [id number] Yasmin Matthew DO Shortness of breath; Strep [...] medical care, and heating? 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 Gender Identity Not on file Sexual [...] this topic Medical Devices Implanted Type Area Manufacturing Sales Representative Device Identifier Shelf Expiration Date Model / Serial / Lot Lead Nrstm 60cm Penta 3mm Pdl 16 Chnl Implanted:Qt y: 1 on 09/16/2021 by Maxi Gregg MD at [facility] Right: Spine Thoracic Advanced [employer] [id number] / / Description:CAMILO Slnt Dura Duraseal Pg Trilysine Amine 5 Implanted:Qt y: 1 on 09/16/2021 by Maxi Gregg MD at [facility] Right: Spine Thoracic Inte[employer] David [id number] / / Description:CAMILO Proclaim Plus 5 Implanted:Qt y: 1 on 02/16/2023 by Maxi Grgeg MD at [facility] Left: Back Cardenas Spine [id number] 11/07/2024 [id number] / [id number] / Explanted Type Area Manufacturing Sales Representative Device Identifier Shelf Expiration Date Model / Serial / Lot Gntr Nrstm [id number] Proclaim Elt Implanted:Qty: 1 on 09/16/2021 by Maxi Gregg MD at [facility] Explanted:Qty: 1 on 10/30/2021 by Maxi Gregg MD at [facility] Right: Spine Thoracic [facility] [...] 08/09/2024 8:46 PM CDT [facility] Specific [place] UA 1.014 1.005 - 1.030 08/09/2024 8:46 [...] 5 # /hpf 08/09/2024 8:46 PM CDT [facility] Bacteria UA Trace(A) None Seen 08/09/2024 8:46 PM CDT [facility] Squamous Epithelial Cells None Seen 0 - 5 /hpf 08/09/2024 8:46 PM CDT [facility] Mucus UA 1+ /LPF 08/09/2024 8:46 PM CDT [facility] Urine URINE SPECIMEN OBTAINED BY CLEAN CATCH PROCEDURE / Unknown 08/09/2024 8:39 PM CDT 08/09/2024 8:39 PM CDT Narrative [facility] - 08/09/2024 8:46 PM CDT Yasmin Matthew DO LAB - URINALYSIS ORDERABLES Final Result Performing Organization Address City/State/[facility] Co de Phone Number [facility] [address] [place] [address] * (ABNORMAL) CULTURE URINE (08/09/2024 8:39 PM CDT) [facility] Culture Urine 50,000-100,000 CFU/mL Escherichia coli(A) TERRANCE 08/12/2024 4:04 AM CDT [facility] Culture Urine 10,000-50,000 CFU/mL urogenital evelio TERRANCE 08/12/2024 4:04 AM CDT [facility] Urine URINE SPECIMEN OBTAINED BY CLEAN CATCH PROCEDURE / Unknown 08/09/2024 8:39 PM CDT 08/09/2024 8:39 PM CDT Narrative [facility] - 08/12/2024 4:04 AM CDT [...] TERRANCE <=1 ug/mL: Susceptible Escherichia coli Meropenem TERRACNE <=0.25 ug/mL: Susceptible Escherichia coli Nitrofurantoin TERRANCE [...] LAB - MICROBIOLOGY ORDERABLE S Final Result [facility] [address] [facility] [place], [place] [address], [facility] [phone] * SARS-COV-2 (COVID-19) FLU A/B RSV PCR RAPID (08/09/2024 7:40 PM CDT) [facility] COVID-19 PCR Not detected Not detected 08/10/19 8:24 PM CDT [facility] Influenza A PCR Not detected Not detected 08/09/2024 8:24 PM CDT [facility] Influenza B PCR Not detected Not detected 08/09/2024 8:24 PM CDT [facility] RSV PCR Not detected Not detected 08/09/2024 8:24 PM CDT [facility] Microbiology SPECIMEN FROM NASOPHARYNGEAL STRUCTURE / Unknown Collection / Unknown 08/09/2024 7:40 PM CDT 08/09/2024 7:40 PM CDT Narrative [facility] - 08/09/2024 8:24 PM CDT [...] Organization Address [facility] Co de Phone Number [facility] [address] [place] [phone] * (ABNORMAL) STREP A SCREEN DIRECT W RFLX STREP A CULTURE (08/09/2024 7:40 PM CDT) [facility] Strep A Rapid Positive(A ) Negative 08/09/2024 7:53 PM CDT [facility] Microbiology ENTIRE THROAT (SURFACE REGION OF NECK) / Unknown Collection / Unknown 08/09/2024 7:40 PM CDT 08/09/2024 7:40 PM CDT Yasmin Vipul LAB - MICROBIOLOGY ORDERABLE S Final Result Performing Organization Address [facility] de Phone Number [facility] [address] [place] [phone] * EKG 12-LEAD (08/09/2024 7:06 PM CDT) Ventricular Rate 86 BPM [facility] Atrial Rate 86 BPM [facility] P-R Interval 122 ms [facility] QRS Duration ms 86 ms [facility] Q-T Interval ms 370 ms [facility] QTC Calculation (Bezet) 442 ms [facility] Calculated R [place] 8 degrees [facility] Calculated T [place] 51 degrees [facility] Interpretation EKG NORMAL SINUS RHYTHM WITH SINUS ARRHYTHMIA SEPTAL INFARCT , AGE UNDETERMINED ABNORMAL ECG WHEN COMPARED WITH ECG OF 09-AUG-2024 13:34, SINUS RHYTHM HAS REPLACED ECTOPIC ATRIAL RHYTHM SEPTAL INFARCT IS NOW PRESENT Confirmed by Gil Perrin MD ([id number]) on 08/10/2024 9:03:52 AM [facility] 08/09/2024 7:06 PM CDT 08/10/2024 9:03 AM CDT Josué Bernal PA-C ECG ORDERABLES Edited Re sult - Final Performing Organization Address City/[facility]/ZIP Co de Phone Number [facility] * TROPONIN-I HIGH SENSITIVE REFLEX 1HOUR (08/09/2024 3:29 PM CDT) [facility] Troponin I High Sensitive 5 <=14 ng/L 08/09/2024 4:50 PM CDT [facility] Delta Troponin I HS 08/09/2024 4:50 PM CDT [facility] Comment:Delta value intentio yissel not calculated. Baseline to 1 hour specimen collection interval exceeded. Blood BLOOD SPECIMEN / Unknown Venipuncture / Unknown 08/09/2024 3:29 PM CDT 08/09/2024 3:33 PM CDT Josué Bernal PA-C LAB - CHEMISTRY ORDERABLE S Final Result Performing Organization Address [facility] Co de Phone Number [facility] [address] [place] [address] * XR CHEST 2VW (08/09/2024 1:59 PM [...] BASELINE + 1HR (08/09/2024 1:40 PM CDT) [facility] Troponin I High Sensitive 6 <=14 ng/L 08/09/2024 2:14 PM CDT [facility] Blood BLOOD SPECIMEN / Unknown Venipuncture / Unknown 08/09/2024 1:40 PM CDT 08/09/2024 1:43 PM CDT Josué Bernal PA-C LAB - CHEMISTRY ORDERABLE S Final Result [facility] [address] [place] [address] * (ABNORMAL) CBC W AUTO DIFFERENTIAL (08/09/2024 1:40 PM CDT) [facility] WBC 15.6(H) 4.0 - 10.7 x10E9/L 08/09/2024 1:47 PM CDT [facility] RBC Count 4.44 3.90 - 5.20 x10E12/L 08/09/2024 1:47 PM CDT [facility] Hemoglobin 13.0 11.9 - 15.8 g/dL 08/09/2024 1:47 PM CDT [facility] Hematocrit 40.4 34.8 - 46.1 % 08/09/2024 1:47 PM CDT [facility] MCV 91.0 80.0 - 98.0 fL 08/09/2024 1:47 PM CDT [facility] MCH 29.3 26.7 - 33.6 pg 08/09/2024 1:47 PM CDT [facility] MCHC 32.2 31.7 - 36.3 g/dL 08/09/2024 1:47 PM CDT [facility] RDW-CV 13.0 11.3 - 14.8 % 08/09/2024 1:47 PM CDT [facility] Platelet Count 249 150 - 420 x10E9/L 08/09/2024 1:47 PM CDT [facility] MPV 9.6 7.8 - 11.4 fL 08/09/2024 1:47 PM CDT [facility] Neutrophil % 72.7 41.0 - 74.0 % 08/09/2024 1:47 PM CDT [facility] Lymphocyte % 18.0 17.0 - 47.0 % 08/09/2024 1:47 PM CDT [facility] Monocyte % 7.5 3.0 - 11.0 % 08/09/2024 1:47 PM CDT [facility] Eosinophil % 1.2 0.0 - 7.0 % 08/09/2024 1:47 PM CDT [facility] Basophil % 0.2 0.0 - 1.6 % 08/09/2024 1:47 PM CDT [facility] Immature Granulocytes % 0.4 0.0 - 1.0 % 08/09/2024 1:47 PM CDT [facility] Neutrophil Absolute 11.35(H) 1.60 - 7.50 x10E9/L 08/09/2024 1:47 PM CDT [facility] Lymphocyte Absolute 2.82 1.00 - 4.40 x10E9/L 08/09/2024 1:47 PM CDT [facility] Monocyte Absolute 1.18(H) 0.15 - 1.00 x10E9/L 08/09/2024 1:47 PM CDT [facility] Eosinophil Absolute 0.19 0.00 - 0.60 x10E9/L 08/09/2024 1:47 PM CDT [facility] Basophil Absolute 0.03 0.00 - 0.13 x10E9/L 08/09/2024 1:47 PM CDT [facility] Blood BLOOD SPECIMEN / Unknown Venipuncture / Unknown 08/09/2024 1:40 PM CDT 08/09/2024 1:43 PM CDT Josué MCKEON-C LAB - HEMATOLOGY ORDERABL ES Final Result Performing Organization Address [facility] Co de Phone Number [facility] [address] [place] [phone] * B-TYPE NATRIURETIC PEPTIDE (08/09/2024 1:40 PM CDT) BNP 29 <=100 pg/mL 08/09/2024 2:11 PM CDT [facility] Blood BLOOD SPECIMEN / Unknown Venipuncture / Unknown 08/09/2024 1:40 PM CDT 08/09/2024 1:43 PM CDT Narrative [facility] - 08/09/2024 2:11 PM CDT [...] Organization Address [facility] Co de Phone Number [facility] [address] [place] [phone] * (ABNORMAL) COMPREHENSIVE METABOLIC PANEL (08/09/2024 1:40 PM CDT) [facility] Glucose 212(H) 70 - 99 mg/dL 08/09/2024 2:09 PM CDT [facility] Sodium 136 136 - 145 mmol/L 08/09/2024 2:09 PM CDT [facility] Potassium 3.9 3.5 - 5.1 mmol/L 08/09/2024 2:09 PM CDT [facility] Chloride 103 98 - 107 mmol/L 08/09/2024 2:09 PM CDT [facility] CO2 24 22 - 29 mmol/L 08/09/2024 2:09 PM T [facility] Calcium 9.4 8.4 - 10.4 mg/dL 08/09/2024 2:09 PM [facility] Anion Gap 9 6 - 16 mmol/L 08/09/2024 2:09 PM T [facility] BUN 19 7 - 26 mg/dL 08/09/2024 2:09 PM T [facility] Creatinine 0.82 0.57 - 1.11 mg/dL 08/09/2024 2:09 PM [facility] Alkaline Phosphatase 68 40 - 150 U/L 08/09/2024 2:09 PM CDT [facility] ALT 22 6 - 57 U/L 08/09/2024 2:09 PM T [facility] AST 23 10 - 48 U/L 08/09/2024 2:09 PM [facility] Protein Total 8.0 6.4 - 8.3 gm/dL 08/09/2024 2:09 PM T [facility] Albumin 3.3(L) 3.4 - 5.0 gm/dL 08/09/2024 2:09 PM [facility] Bilirubin Total 0.9 0.2 - 1.2 mg/dL 08/09/2024 2:09 PM [facility] eGFR by CKD-EPI 78(L) >=90 mL/min/1.7 3 m2 08/09/2024 2:09 PM [facility] Blood BLOOD SPECIMEN / Unknown Venipuncture / Unknown 08/09/2024 1:40 PM CDT 08/09/2024 1:43 PM CDT Josué MCKEON-Ana Laura LAB - CHEMISTRY ORDERABLE S Final Result Performing Organization Address [facility] de Phone Number [facility] [address] [place], [place] [phone] * (ABNORMAL) MAGNESIUM BLOOD (08/09/2024 1:40 PM CDT) Pathologist [facility] Magnesium 1.5(L) 1.6 - 2.6 mg/dL 08/09/2024 2:09 PM CDT [facility] Blood BLOOD SPECIMEN / Unknown Venipuncture / Unknown 08/09/2024 1:40 PM CDT 08/09/2024 1:43 PM CDT Josué MCKEON-C LAB - CHEMISTRY ORDERABLE S Final Result Performing Organization Address [facility] de Phone Number [facility] [address] [place] [address] * CK BLOOD (08/09/2024 1:40 PM CDT) [facility] CK 107 29 - 168 U/L 08/09/2024 7:44 PM CDT [facility] Blood BLOOD SPECIMEN / Unknown Venipuncture / Unknown 08/09/2024 1:40 PM CDT 08/09/2024 1:43 PM CDT Yasmin Matthew DO LAB - CHEMISTRY ORDERABLES F inal Result Performing Organization Address [facility] Co de Phone Number [facility] [address] [place] [phone] * HEPATITIS C AB SCREEN RFLX NAAT QUANT (02/21/2023 6:30 PM CDT) [facility] Hepatitis C Antibody Non-react hugh Non-reac tive 02/21/2023 7:32 PM CDT [facility] Comment:Hepatitis C [...] ORDERABLES Fi nal Result Performing Organization Address City/[facility]/ZIP Co de Phone Number [facility] [address] [place] [address], [place] [phone] * (ABNORMAL) HEMOGLOBIN A1C (12/25/2022 3:56 AM CDT) Hemoglobin A1c 8.6(H) <=5.6 % 12/25/2022 2:47 PM CDT [facility] Estimated Average Glucose 200 mg/dL 12/25/2022 2:47 PM CDT [facility] Comment: HbA1c Interpretation: Normal : < 5.7% Pre-diabetes: 5.7-6.4% Diabetes: Equal to or greater than 6.5% Test results diagnostic of diabetes should be repeated for confirmation. Treatment target values recommended by ADA and other clinical organizations should be used to evaluate metabolic control in patients. Reference: [place] [employer], Standards of Care in Diabetes [...] LAB - CHEMISTRY ORDERA BLES Final Result [facility] [address] [place] [address], [place] [phone] from Last 3 Months or Most Recently [...] 3:37 AM 03/23/2023 7:14 PM Care Teams Concrete Truck Driver Relationship Specialty Start Date End Date Justen Gale MD PCP - General 07/05/21
--- OUTSIDE RECORDS SUMMARY | 2024-10-08 08:13 | XMS_ITS ---
Author Organization [facility] Address [address] [place] [address] Care Team Providers Care Humidifier Operator Name Role Phone Liu Jerez MD Unavailable Albert Corbin MD Unavailable Justen Gale MD Primary Care Provider Khris Arthur MD Unavailable [phone] Ko Melendez MD Unavailable [phone] John Paul Moyer MD Unavailable Annel Rod MD Unavailable Anali MARSHALL MD, Carlos M. Unavailable Active Problems Problem Noted Date Diagnosed Date Urinary tract infection 05/22/2024 Assessment & Plan (05/26/2024 10:08 AM STAFFING EXECUTIVE): Presenting with urinary symptoms of right flank [...] 05/22/2024 Assessment & Plan (05/25/2024 7:52 AM STAFFING EXECUTIVE): Hx of breast cancer c/b DVT/bilateral Pes [...] 05/22/2024 Assessment & Plan (05/22/2024 1:14 PM STAFFING EXECUTIVE): -long-standing chronic back pain -CT L spine [...] 09/12/2021 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) 2021 retirement (current) use 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 inhibitors 10/17/2019 Thyroid [...] without long-term current use [facility]) 10/23/2017 Assessment & Plan [...] 10/13/2017 Assessment & Plan (05/22/2024 12:29 PM STAFFING EXECUTIVE): -Hx stage II, ER positive, HER2 negative [...] 08/01/2017 Assessment & Plan (05/22/2024 12:33 PM STAFFING EXECUTIVE): -Hx LUL -Hospital provided CPAP ordered History of DVT (deep vein thrombosis) 08/01/2017 History of pulmonary embolism 08/01/2017 Generalized weakness 07/27/2017 Dyspnea 07/27/2017 Unintentional weight loss 07/27/2017 Acute cystitis without hematuria 07/27/2017 Nausea and vomiting 07/26/2017 Overview (07/28/2017): Added automatically from request for surgery [id number] Pulmonary embolism 08/09/2016 Assessment & Plan (10/23/2017 2:05 AM CDT): On Rivaroxaban Lymphedema of left upper extremity 08/09/2016 Assessment & Plan (05/25/2024 7:53 AM STAFFING EXECUTIVE): S/p L axillary lymph node dissection 2014, [...] syndrome Assessment & Plan (05/22/2024 11:18 AM STAFFING EXECUTIVE): -continue home Requip 5mg nightly Pain of lower extremity 03/12/2013 Overview (07/29/2016): Leg pain Essential hypertension Assessment & Plan (05/23/2024 10:42 AM STAFFING EXECUTIVE): -Chart history of HTN but not on meds -BP elevated on admission, likely some pain contributing -Monitor closely once pain under adequate control, discussed following up with PCP for this Chronic anticoagulation Restless leg syndrome 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 Type 2 diabetes mellitus without complication Assessment & Plan (05/24/2024 1:39 PM STAFFING EXECUTIVE): -Last Ha1c 8.4 in 2023, repeat 8.7 [...] left female breast, unspecified estrogen receptor status (HCC)terminal operator (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
--- OUTSIDE RECORDS SUMMARY | 2024-10-08 08:13 | XMS_ITS | Encounter Summary ---
Author Organization [facility] Address [address] [place] [address] Phone Care Team Providers Care Machine Staker Name Role Phone Justen Gale MD Primary Care Provider [phone] David Roberts APRN, TELEPHONE INTERCEPTOR OPERATOR Unavailable [phone] Annel Rod MD Unavailable Encounter Details Date Type Department Care Team (Late st Contact Info) Description 06/05/2020 [facility] [address] [place] [address] Pili Elkins APRN, TELEPHONE INTERCEPTOR OPERATOR #[address] [address] Frequency of micturition Social History [...] COVID-19? No / Unsure 2020 11:37 AM SALES ACCOUNT LEADER documented as of this encounter Plan of Treatment Upcoming Encounters Date Type Department Care Team (Late st Contact Info) Description 10/22/2024 11:15 AM CDT Office Visit [facility] - Endocrinology - [place] [address] [place] [address] Annel Rod MD [address] [facility] [address] [place] [address] 11/13/2024 2:00 PM CDT [facility]ment [facility] [address] [place] [address] Angelito Alegria, ZAMZAM, TELEPHONE INTERCEPTOR OPERATOR [address] [facility] [address] [place] [address] Discharge Disposition: Discharged to home or Selfcare documented as of this encounter Procedures Procedure Name Priority Date/Time Associated Diagnosis Comments URINALYSIS REFLEX IF INDICATED BY ABNORMAL RESULTS Routine 06/05/2020 4:45 PM SALES ACCOUNT LEADER Frequency of micturition documented in this encounter Results * (ABNORMAL) URINALYSIS REFLEX IF INDICATED BY ABNORMAL RESULTS (06/05/2020 4:45 PM SALES ACCOUNT LEADER) SPECIFIC GRAVITY 1.020 1.003 - 1.030 06/05/2020 5:19 PM SALES ACCOUNT LEADER [facility] URINE PH 5.0 5.0 - 9.0 06/05/2020 5:19 PM SALES ACCOUNT LEADER [facility] WBC ESTERASE Negative Negative 06/05/2020 5:19 PM SALES ACCOUNT LEADER [facility] NITRITE Negative Negative 06/05/2020 5:19 PM SALES ACCOUNT LEADER [facility] PROTEIN, RANDOM URINE Negative Negative 06/05/2020 5:19 PM SALES ACCOUNT LEADER [facility] URINE GLUCOSE, QUAL Negative Negative 06/05/2020 5:19 PM SALES ACCOUNT LEADER [facility] URINE KETONES Negative Negative 06/05/2020 5:19 PM SALES ACCOUNT LEADER [facility] UROBILINOGEN Normal Normal mg/dL 06/05/2020 5:19 PM SALES ACCOUNT LEADER [facility] URINE BILIRUBIN Negative Negative 5:19 PM SALES ACCOUNT LEADER [facility] URINE BLOOD 25 /uL(A) Negative leandro/ul 06/05/2020 5:19 PM SALES ACCOUNT LEADER [facility] URINALYSIS COLOR Yellow 06/05/19 5:19 PM SALES ACCOUNT LEADER [facility] URINALYSIS CLARITY Clear 06/05/2020 5:19 PM SALES ACCOUNT LEADER [facility] WBC (Urine) 0-5 Negative, 0-5 /hpf 06/05/2020 5:19 PM SALES ACCOUNT LEADER [facility] URINE RBC'S 3-5(A) Negative, 0-2 /hpf 06/05/2020 5:19 PM SALES ACCOUNT LEADER [facility] EPITHELIAL CELLS Small amount /lpf 2020 5:19 PM SALES ACCOUNT LEADER [facility] BACTERIA, URINE Few(A) Negative /hpf 06/05/2020 5:19 PM SALES ACCOUNT LEADER [facility] Urine URINE SPECIMEN / Unknown Non-Phlebotomy Collection / Unknown 06/05/2020 4:45 PM SALES ACCOUNT LEADER 06/05/2020 5:00 PM SALES ACCOUNT LEADER us Pili Elkins LAYER OFF, TELEPHONE INTERCEPTOR OPERATOR URINE ORDERABLES Fin al Result [facility] [address] [place] [address] documented in this encounter Visit Diagnoses Diagnosis Frequency of micturition Urinary frequency documented in this encounter Additional Health Concerns Infection Onset Date Last Indicated Resolved Time COVID - 19 08/01/2024 08/01/2024 08/01/2024 3:20 PM CDT Assessment Noted Time PHQ-9 Depression Total Score: 0 09/08/19 19 1:00 PM CDT documented as of this encounter Care Teams Machine Staker Relationship Specialty Start Date End Date Justen Gale MD [address] [facility] [address] [place] [address] PCP - General Family Medicine 10/17/17 David Roberts, LAYER OFF, TELEPHONE INTERCEPTOR OPERATOR [address] [place] [address] Nurse Practitioner Advanced Practice Nurse 01/31/22 Annel Rod MD [address] [facility] [address] [place] [address] Consulting Physician Endocrinology 07/01/22 documented as of this encounter
--- OUTSIDE RECORDS SUMMARY | 2024-10-08 08:13 | XMS_ITS | Referral Summary ---
Author Organization [facility] Address [address] [place] [address] Care Team Providers Care Project Management Professional Name Role Phone Liu Jerez MD Unavailable Albert Corbin MD Unavailable Justen Gale MD Primary Care Provider Khris Arthur MD Unavailable [phone] Ko Melendez MD Unavailable John Paul Moyer [...] 05/22/2024 Assessment & Plan (05/26/2024 10:08 AM SMOKEHOUSE WORKER): Presenting with urinary symptoms of right [...] 05/22/2024 Assessment & Plan (05/25/2024 7:52 AM SMOKEHOUSE WORKER): Hx of breast cancer c/b DVT/bilateral [...] 05/22/2024 Assessment & Plan (05/22/2024 1:14 PM SMOKEHOUSE WORKER): -long-standing chronic back pain -CT L [...] 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) 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 10/17/2019 [...] complication, without long-term current use of insulin ([facility]) 10/23/2017 Assessment & Plan (10/23/2017 2:06 [...] 10/13/2017 Assessment & Plan (05/22/2024 12:29 PM SMOKEHOUSE WORKER): -Hx stage II, ER positive, HER2 [...] 08/01/2017 Assessment & Plan (05/22/2024 12:33 PM SMOKEHOUSE WORKER): -Hx LUL -Hospital provided CPAP ordered History of DVT (deep vein thrombosis) 08/01/2017 History of pulmonary embolism 08/01/2017 Generalized weakness 07/27/2017 Dyspnea 07/27/2017 Unintentional weight loss 07/27/2017 Acute cystitis without hematuria 07/27/2017 Nausea and vomiting 07/26/2017 Overview (07/28/2017): Added automatically from request for surgery [id number] Pulmonary embolism 08/09/2016 Assessment & Plan (10/23/2017 2:05 AM CDT): On Rivaroxaban Lymphedema of left upper extremity 08/09/2016 Assessment & Plan (05/25/2024 7:53 AM SMOKEHOUSE WORKER): S/p L axillary lymph node dissection [...] syndrome Assessment & Plan (05/22/2024 11:18 AM SMOKEHOUSE WORKER): -continue home Requip 5mg nightly Pain of lower extremity 03/12/2013 Overview (07/29/2016): Leg pain Essential hypertension Assessment & Plan (05/23/2024 10:42 AM SMOKEHOUSE WORKER): -Chart history of HTN but not on meds -BP elevated on admission, likely some pain contributing -Monitor closely once pain under adequate control, discussed following up with PCP for this Chronic anticoagulation Restless leg syndrome 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 Type 2 diabetes mellitus without complication Assessment & Plan (05/24/2024 1:39 PM SMOKEHOUSE WORKER): -Last Ha1c 8.4 in 2023, repeat [...] = 0.6 oz pur e alcohol) [facility] Utilities Answer Date Recorded In the past 12 months has e Mort[employer], gas, oil, or water company threatened to [...] How often do you attend chur or confucianism services? More than 4 times [...] on file Legal Sex Female 12:24 AM SMOKEHOUSE WORKER Gender Identity Not on file Sexual [...] CDT HEMOGLOBIN A1C STAT 05/21/2024 4:20 PM SMOKEHOUSE WORKER LIPID PANEL STAT 05/21/2024 4:20 PM SMOKEHOUSE WORKER DEXA AXIAL SKELETON BONE DENSITY 1 OR [...] [facility], [address] [place] [address]., [address] Blood 07/01/2024 2:02 PM CDT 07/01/2024 2:12 PM CDT us Ilana Stevens MD LAB BLOOD ORDERABLES F inal Result [facility] [address] [facility] Department [place] [address] * (ABNORMAL) Hemoglobin A1c (05/21/2024 4:20 PM SMOKEHOUSE WORKER) Hgb A1C 8.7(H) 4.0 - 5.6 % Estimated Average Glucose 203 mg/dL [facility] Comment: The ADA recommends reporting an estimated Average Glucose (eAG) with all Hemoglobin A1c results using the equation derived from a study of 507 normal and diabetic adults. Minority populations were underrepresented and children were not included. (Diabetes Care 2020; 43(S1): S66-S76). The eAG is not equivalent to a fasting glucose. Blood 05/21/2024 4:20 PM SMOKEHOUSE WORKER 05/21/2024 4:55 PM SMOKEHOUSE WORKER us Leo Henry MD LAB BLOOD ORDERABLES Final Result [facility] Department [place] [address] * (ABNORMAL) Lipid panel (05/21/2024 4:20 PM SMOKEHOUSE WORKER) Cholesterol 205(H) 30 - 199 mg/dL [...] revised on 2017. Triglycerides 92 <=149 mg/dL [facility] Comment: Interpretive Data Ages < [...] 2017. HDL 55 >=40 mg/dL [facility] Comment: Interpretive Data Ages < or [...] LDL, calculated 134(H) <=129 mg/dL [facility] Comment: Interpretive Data Ages < or [...] 2023. Non-HDL Cholesterol 150 mg/dL [facility] Comment: Interpretive Data Ages < or [...] last revised on 2017. Chol/HDL ratio 4 [facility] Blood 05/21/2024 4:20 PM SMOKEHOUSE WORKER 05/21/2024 4:50 PM SMOKEHOUSE WORKER Narrative [facility] - 05/22/2024 4:17 PM SMOKEHOUSE WORKER Reflex us Leo Henry MD LAB BLOOD ORDERABLES Final Result [facility] Department [place] [address] * Dexa Axial Skeleton Bone Density 1 or 2 Site (08/02/2022 10:53 AM CDT) Anatomical Region Laterality Modality Body N/A Radiographic Lizeth ging Narrative 08/02/2022 3:34 PM CDT Patient Name: Karly Marques Date of : 1955 Date of scan: 08/02/2022 Bone mineral density was performed on a HoloRentPost Discovery Densitometer. Based on machine cross-calibration and [...] by the International Society of Clinical Densitometry. [id number] Khris Arthur MD [facility] DXA PROCEDURES F [...] this written report and agrees with it. [facility]# Date Time Exam [id number] Aug 19, 2016 14:27:00 [facility] [id number] Diag Mamm, inc CAD, unilat L Technologist(s): Carla Harris; ; [id number] Aug 19, 2016 15:39:00 [facility] [id number] Breast US unilateral, ltd L ACC# Date Time Exam [id number] Aug 19, 2016 14:27:00 [facility] [address] Diag Mamm, inc CAD, unilat L Technologist(s): Carla Harris; ; [id number] Aug 19, 2016 15:39:00 [facility] [id number] Breast US unilateral, ltd L EXAMINATION: LEFT [...] SARABIA M.D. on Aug 19 2016 4:20P [id number] Procedure Note Miscellaneous, Not In File / Provider, Historical, MD - 09/17/2016 ANTHONY SARABIA M.D. JUDY RINCON M.D. FINAL REPORT The radiology attending physician has personally reviewed this study, and has reviewed and/or edited this written report and agrees with it. ACC# Date Time Exam [id number] Aug 19, 2016 14:27:00 [facility] [address] Diag Mamm, inc CAD, unilat L Technologist(s): Carla Harris; ; [id number] Aug 19, 2016 15:39:00 [facility] [id number] Breast US unilateral, ltd L ACC# Date Time Exam [id number] Aug 19, 2016 14:27:00 [facility] [id number] Diag Mamm, inc CAD, unilat L Technologist(s): Carla Harris; ; [id number] Aug 19, 2016 15:39:00 C [id number] Breast US unilateral, ltd L EXAMINATION: LEFT [...] SARABIA M.D. on Aug 19 2016 4:20P [id number] us Not In File Miscellaneous IMG MAMMO PROCEDURES F inal Result from Last 3 Months or Most Recently Relevant to Health Maintenance Insurance [facility] MEDICARE ADVANTAGE [facility] MEDICARE ADVANTAGE [employer] MEDICARE ADVANTAGE Advance Directives For more information, please contact: [phone] Documents on File Type Date Recorded Patient Control Clerk Auditing Expl anation ADVANCE DIRECTIVE 12/23/2021 2:49 PM Power of Keno Attendant-Medical ADVANCE DIRECTIVE 12/23/2021 2:49 PM Living Will [...] First Alternate Health Care Agent Care Teams Project Management Professional Relationship Specialty Start Date End Date Justen Gale MD 2 [facility] [address] [place] [address] PCP - General 10/09/17 Liu Jerez MD Consulting Physician Gastroenterology 07/28/17 [place] [address] [facility] [address] [place] [address] Consulting Physician Pulmonary Disease 08/03/17 Khris Arthur MD [address] [facility] [address] [place] [address] Medical Oncologist/Ground Wood Supervisor Medical Oncology 10/23/17 [place] [address] [facility] [address] [place] [address] Surgeon Orthopedic Surgery 10/23/17 [place] [address] [facility] [address] [place] [address] Consulting Physician Pain Management 10/23/17 [place] [address] [facility] [address] [place] [address] Referring Physician General Surgery 01/26/18 [place] [address] [facility] [address] [place] [address] Consulting Physician Neurology 01/26/18
--- OUTSIDE RECORDS SUMMARY | 2024-10-08 08:13 | XMS_ITS | Encounter Summary ---
Author Organization [facility] Address [address] [place] [address] Phone Care Team Providers Care Human Capital Consultant Name Role Phone Justen Gale MD Primary Care Provider [phone] David Roberts APRN, MASONRY TEACHER Unavailable [phone] Annel Rdo MD Unavailable Reason for Visit * Reason Onset Date Comments Medication Refill 08/06/2020 Encounter Details Date Type Department Care Team (Late st Contact Info) Description 08/06/2020 Refill [facility] #2 [facility] [place] [phone] Justen Gale MD #[address] [address] Medication Refill Social History Tobacco Use Types [...] Visits 2 weeks ago [facility] APN, MASONRY TEACHER 2 months ago Increased urinary frequency [facility] Pili Mueller APN, MASONRY TEACHER 5 months ago Urinary frequency [facility] Pili Mueller APN, MASONRY TEACHER 8 months ago Type 2 diabetes mellitus with diabetic polyneuropathy, with long- term current use of insulin (HCC) [facility] Pili Mueller APN, MASONRY TEACHER 9 months ago N[facility] Justen Urbano MD Upcoming Appointments Future Appointments In 6 days Pili Elkins APN, MASONRY TEACHER [facility] PROFESSIONAL DRIVER - Recent and Past Visits Recent Visits Date Type Provider Dept 07/20/20 Office Visit Pili Elkins APN, MASONRY TEACHER [facility] 06/05/20 Office Visit Pili Elkins APN, NETTA [facility] 02/17/20 Office Visit Pili Elkins APN, NETTA [facility] 12/03/19 Office Visit Pili Elkins APN, NETTA [facility] 11/05/19 Telemedicine Justen Gale MD [facility] 07/25/19 Telemedicine [facility] visits within past 460 days with a meds authorizing provider and meeting all other requirements Future Appointments Date Type Provider Dept 08/12/20 Appointment Pili Elkins APN, CNP [facility] Showing future appointments within next 90 days [...] [facility] - [place] #2 [place] [address] Annel Rod MD #[address] [address] 11/13/2024 2:00 PM CDT Appointment [facility] Cardiology Services 1 [place] [address] Angelito Alegria MEDICAL TECH, MASONRY TEACHER #2 [facility] [address] [place] [address] Discharge Disposition: Discharged to home or Selfcare documented as of this encounter Visit Diagnoses Not on filedocumented in this encounter Additional Health Concerns Infection Onset Date Last Indicated Resolved Time COVID - 19 08/01/2024 08/01/2024 08/01/2024 3:20 PM CDT Assessment Noted Time PHQ-9 Depression Total Score: 0 07/21/19 3:00 PM CDT documented as of this encounter Care Teams Human Capital Consultant Relationship Specialty Start Date End Date Justen Gale MD #[address] [address] PCP - General Family Medicine 10/17/17 David Roberts APRN, MASONRY TEACHER #2 [place] [address] Nurse Practitioner Advanced Practice Nurse 01/31/22 Annel Rod MD #[address] [address] Consulting Physician Endocrinology 07/01/22 documented as of this encounter
--- OUTSIDE RECORDS SUMMARY | 2024-10-08 08:13 | XMS_ITS | Encounter Summary ---
Author Organization [facility] Address [address] [place] [address] Phone Care Team Providers Care Psychiatric Social Worker Name Role Phone Justen Gale MD Primary Care Provider [phone] David Roberts APRN, ADULT CAREGIVER Unavailable Annel Rod MD Unavailable Reason for Visit * Reason Comments Medication Refill Encounter Details Date Type Department Care Team (Late st Contact Info) Description 02/07/2020 Refill [facility] [address] [place] [address] Justen Gale MD #[address] [address] Medication Refill Social History Tobacco Use Types [...] Visit [facility] - [place] #2 [place] [address] Annel Rod MD #[address] [address] 11/13/2024 2:00 PM CDT [facility]ment [facility] 1 [place] [address] Angelito Alegria APRN, ADULT CAREGIVER #2 [facility] [address] [place] [address] Discharge Disposition: Discharged to home or Selfcare documented as of this encounter Visit Diagnoses Not on filedocumented in this encounter Additional Health Concerns Infection Onset Date Last Indicated Resolved Time COVID - 19 08/01/2024 08/01/2024 08/01/2024 3:20 PM CDT Assessment Noted Time PHQ-9 Depression Total Score: 0 09/08/19 1:00 PM CDT documented as of this encounter Care Teams Psychiatric Social Worker Relationship Specialty Start Date End Date Justen Gale MD #[address] [address] PCP - General Family Medicine 10/17/17 David Roberts APRN, NETTA #2 [facility] [place] [address] Nurse Practitioner Advanced Practice Nurse 01/31/22 Annel Rod MD #[address] [address] Consulting Physician Endocrinology 07/01/22 documented as of this encounter
--- OUTSIDE RECORDS SUMMARY | 2024-10-08 08:13 | XMS_ITS | CONTINUITY OF CARE DOCUMENT ---
Author Name ayesha, ayesha Address Unknown Organization [facility] Address [address] [facility] [address] [place] [address] Phone [phone] Care Team Providers Care Administrative Director Name Role Phone Yamilet DURÁN, Maico Unavailable [phone] ALANIS DURÁN, BRIDGETT Unavailable ALLISON DURÁN, CLARISSE Unavailable PROBLEMS Condition Status Date Provider Notes Shortness of breath active Ivory Rodriguez Palpitations active Radha Seals INSURANCE PROVIDERS Payer name Policy type / Coverage type [place] red green party ID UHC MEDICARE COMPLETE HMO Other [id number] [facility] Medicaid 2 [id number] HISTORY OF PROCEDURES Procedure Date Procedure Name Provider Procedure Notes S tatus Stress EKG Carmine Silverio MD complet ed Regadenoson, 4 units Sergey Saldana MD completed Cardiolite, 2 units Sergey Saldana MD completed SPECT Images Carmine Silverio MD compl eted Holter, 24 or 48 Maico Woodard MD co mpleted
--- OUTSIDE RECORDS SUMMARY | 2024-10-08 08:13 | XMS_ITS | Encounter Summary ---
Author Organization [facility] Address [address] [place] [address] Phone Care Team Providers Care Prorate Clerk Name Role Phone Justen Gale MD Primary Care Provider David Roberts APRN, DEPARTMENT ADMINISTRATOR Unavailable Annel Rod MD Unavailable Reason for Visit * Reason Onset Date Comments Sore Throat 06/29/2020 Encounter Details Date Type Department Care Team (Late st Contact Info) Description 06/29/2020 Telephone [facility] #2 [place] [address] Justen Gale MD #[address] [address] Sore Throat Social History Tobacco Use Types [...] COVID-19? No / Unsure 06/29/2020 8:43 AM PAIRER ODDS documented as of this encounter Miscellaneous Notes * Telephone Encounter - Gail Lucero RN - 06/29/2020 3:53 PM CST Attempted to call mailbox is full. Pt does not need testing ER ODDS * Telephone Encounter - Vince Hermosillo MD - 06/29/2020 3:13 PM CST No covid testing needed. If the er thought that it was warranted then they would have done this. ER ODDS * Telephone Encounter - Marlys Sorensen RN - 06/29/2020 8:36 AM CST Patient calling. Patient is calling to schedule Hospital/ED/Prompt-Care follow up appointment. Hospital/ED/Prompt-Care Site: [facility] ED Records Requested: Yes Reason for [...] and yearly PAP appointments? Please advise. ER ODDS documented in this encounter Plan of Treatment Upcoming Encounters Date Type Department Care Team (Late st Contact Info) Description 10/22/2024 11:15 AM CDT Office Visit [facility]ocr[facility]ology - [place] #2 [place] [address] Annel Rod MD #2 [facility] [address] [place] [address] 11/13/2024 2:00 PM CDT [facility] 1 [place] [address] Angelito Alegria, CHIPS SCREEN TENDER, DEPARTMENT ADMINISTRATOR #2 [facility] [address] [place] [address] Discharge Disposition: Discharged to home or Selfcare documented as of this encounter Visit Diagnoses Not on filedocumented in this encounter Additional Health Concerns Infection Onset Date Last Indicated Resolved Time COVID - 19 08/01/2024 08/01/2024 08/01/2024 3:20 PM CDT Assessment Noted Time PHQ-9 Depression Total Score: 0 09/08/19 19 1:00 PM CDT documented as of this encounter Care Teams Prorate Clerk Relationship Specialty Start Date End Date Justen Gale MD #2 [facility] [address] [place] [address] PCP - General Family Medicine 10/17/17 David Roberts APRN, DEPARTMENT ADMINISTRATOR #2 [place] [address] Nurse Practitioner Advanced Practice Nurse 01/31/22 Annel Rod MD #2 [facility] [address] [place] [address] Consulting Physician Endocrinology 07/01/22 documented as of this encounter
--- OUTSIDE RECORDS SUMMARY | 2024-10-08 08:13 | XMS_ITS | Encounter Summary ---
Author Organization [facility] Address [address] [place] [address] Phone Care Team Providers Care Dry Charge Process Attendant Name Role Phone Justen Gale MD Primary Care Provider [phone] David Roberts APRN, INSPECTING ENGINEER Unavailable [phone] Annel Rod MD Unavailable Reason for Visit * Reason Comments Medication Refill Encounter Details Date Type Department Care Team (Late st Contact Info) Description 02/17/2021 Refill [facility] #2 [place] [address] Justen Gale MD #[address] [address] Medication Refill Social History Tobacco Use Types [...] Mcgee 06/05/20 Office Visit Pili Elkins APRN, INSPECTING ENGINEER [facility] Showing recent visits [...] [facility] #2 [place] [address] Annel Rod MD #2 [facility] [address] [place] [address] 11/13/2024 2:00 PM CDT Appointment [facility] Cardiology Services 1 [place] [address] Angelito Alegria, ELIGIBILITY ANALYST, INSPECTING ENGINEER #2 [facility] [address] [place] [address] Discharge Disposition: Discharged to home or Selfcare documented as of this encounter Visit Diagnoses Not on filedocumented in this encounter Additional Health Concerns Infection Onset Date Last Indicated Resolved Time COVID - 19 08/01/2024 08/01/2024 08/01/2024 3:20 PM CDT Assessment Noted Time PHQ-9 Depression Total Score: 0 07/21/19 3:00 PM CDT documented as of this encounter Care Teams Dry Charge Process Attendant Relationship Specialty Start Date End Date Justen Gale MD #[address] [address] PCP - General Family Medicine 10/17/17 David Roberts ELIGIBILITY ANALYST, INSPECTING ENGINEER #2 [place] [address] Nurse Practitioner Advanced Practice Nurse 01/31/22 Annel Rod MD #[address] [address] Consulting Physician Endocrinology 07/01/22 documented as of this encounter
--- OUTSIDE RECORDS SUMMARY | 2024-10-08 08:13 | XMS_ITS | Patient Health Record ---
Author Organization [facility] Address [address] [facility] [address] [facility] [address] [place] [address] Care Team Providers Care Cement Mixer Driver Name Role Phone Yo DURÁN, Lavonne Primary Care Provider Unavail able Reason For Referral No Information Plan Of Treatment No Information Insurance Providers Payer Name Payer Address Payer Phone Subscriber Number Group Number Insured Name Patient Relationship to Insured Coverage Start Date Coverage End Date [facility] [employer] [address] [address] [place], [place] [id number] Karly Marques Self - patient is the insured
--- OUTSIDE RECORDS SUMMARY | 2024-10-08 08:13 | XMS_ITS | Encounter Summary ---
Author Organization [facility] Address [address] [place] [address] Phone Care Team Providers Care Hat And Cap Parts Cutter Hand Name Role Phone Justen Gale MD Primary Care Provider David Roberts APRN, HEAD GREENSKEEPER Unavailable [phone] Annel Rod MD Unavailable Reason for Visit * Reason Comments Medication Refill Encounter Details Date Type Department Care Team (Late st Contact Info) Description 03/13/2021 Refill [facility] [address] [place] [address] Justen Gale MD #[address] [address] Medication Refill Social History Tobacco [...] COVID-19? No / Unsure 03/02/2021 5:05 PM APPLIED PSYCHOLOGY PROFESSOR documented as of this encounter Plan of Treatment Upcoming Encounters Date Type Department Care Team (Late st Contact Info) Description 10/22/2024 11:15 AM CDT Office Visit [facility] Endocrinology [facility] #[address] [place] [address] Annel Rod MD #2 [facility] [address] [place] [address] 11/13/2024 2:00 PM CDT [facility] 1 [place] [address] Angelito Alegria, ROAST MASTER, HEAD GREENSKEEPER #2 [facility] [address] [place] [address] Discharge Disposition: Discharged to home or Selfcare documented as of this encounter Visit Diagnoses Not on filedocumented in this encounter Additional Health Concerns Infection Onset Date Last Indicated Resolved Time COVID - 19 08/01/2024 08/01/2024 08/01/2024 3:20 PM CDT Assessment Noted Time PHQ-9 Depression Total Score: 0 07/21/19 3:00 PM CDT documented as of this encounter Care Teams Hat And Cap Parts Cutter Hand Relationship Specialty Start Date End Date Justen Gale MD #[address] [address] PCP - General Family Medicine 10/17/17 David Roberts APRN, HEAD GREENSKEEPER #2 [place] [address] Nurse Practitioner Advanced Practice Nurse 01/31/22 Annel Rod MD #2 [place] [phone] Consulting Physician Endocrinology 07/01/22 documented as of this encounter
--- OUTSIDE RECORDS SUMMARY | 2024-10-08 08:13 | XMS_ITS | Clinical Summary ---
Author Organization [facility] Address [address] [place] [address] Care Team Providers Care Regional Vice President Life Sales Name Role Phone Liu Jerez MD Unavailable Albert Corbin MD Unavailable [phone] Justen Glae MD Primary Care Provider [phone] Khris Arthur MD Unavailable [phone] Ko Melendez MD Unavailable John Paul Moyer [...] 05/22/2024 Assessment & Plan (05/26/2024 10:08 AM REHABILITATION SERVICES MANAGER): Presenting with urinary symptoms of right [...] 05/22/2024 Assessment & Plan (05/25/2024 7:52 AM REHABILITATION SERVICES MANAGER): Hx of breast cancer c/b DVT/bilateral [...] 05/22/2024 Assessment & Plan (05/22/2024 1:14 PM REHABILITATION SERVICES MANAGER): -long-standing chronic back pain -CT L [...] of insulin ([facility]) 10/23/2017 Assessment & Plan (10/23/2017 [...] 10/13/2017 Assessment & Plan (05/22/2024 12:29 PM REHABILITATION SERVICES MANAGER): -Hx stage II, ER positive, HER2 [...] 08/01/2017 Assessment & Plan (05/22/2024 12:33 PM REHABILITATION SERVICES MANAGER): -Hx LUL -Hospital provided CPAP ordered History of DVT (deep vein thrombosis) 08/01/2017 History of pulmonary embolism 08/01/2017 Generalized weakness 07/27/2017 Dyspnea 07/27/2017 Unintentional weight loss 07/27/2017 Acute cystitis without hematuria 07/27/2017 Nausea and vomiting 07/26/2017 Overview (07/28/2017): Added automatically from request for surgery [id number] Pulmonary embolism 08/09/2016 Assessment & Plan (10/23/2017 2:05 AM CDT): On Rivaroxaban Lymphedema of left upper extremity 08/09/2016 Assessment & Plan (05/25/2024 7:53 AM REHABILITATION SERVICES MANAGER): S/p L axillary lymph node dissection [...] syndrome Assessment & Plan (05/22/2024 11:18 AM REHABILITATION SERVICES MANAGER): -continue home Requip 5mg nightly Pain of lower extremity 03/12/2013 Overview (07/29/2016): Leg pain Essential hypertension Assessment & Plan (05/23/2024 10:42 AM REHABILITATION SERVICES MANAGER): -Chart history of HTN but not on meds -BP elevated on admission, likely some pain contributing -Monitor closely once pain under adequate control, discussed following up with PCP for this Chronic anticoagulation Restless leg syndrome 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 Type 2 diabetes mellitus without complication Assessment & Plan (05/24/2024 1:39 PM REHABILITATION SERVICES MANAGER): -Last Ha1c 8.4 in 2023, repeat [...] alcohol) [facility] [employer] Answer Date Recorded In the past 12 months has [employer], gas, oil, or water wst.cn threatened to shut off services in your [...] often do you attend chur ch or hoahaoism services? More than 4 times per year [...] on file Legal Sex Female 12:24 AM REHABILITATION SERVICES MANAGER Gender Identity Not on file Sexual [...] CDT HEMOGLOBIN A1C STAT 05/21/2024 4:20 PM REHABILITATION SERVICES MANAGER LIPID PANEL STAT 05/21/2024 4:20 PM REHABILITATION SERVICES MANAGER DEXA AXIAL SKELETON BONE DENSITY 1 [...] was last reviewed 2021. Testing performed by: [facility], [address] [place] [address]., [id number] Blood 07/01/2024 2:02 PM CDT 07/01/2024 2:12 PM CDT us Ilana Stevens MD LAB BLOOD ORDERABLES F inal Result Performing Organization Address City/[facility]/ZIP Co de Phone Number [place] [address] [facility] Department [place] [address] * (ABNORMAL) Hemoglobin A1c (05/21/2024 4:20 PM REHABILITATION SERVICES MANAGER) [facility] Hgb A1C 8.7(H) 4.0 - 5.6 % Estimated Average Glucose 203 mg/dL [facility] Comment: The ADA recommends reporting an estimated Average Glucose (eAG) with all Hemoglobin A1c results using the equation derived from a study of 507 normal and diabetic adults. Minority populations were underrepresented and children were not included. (Diabetes Care 2020; 43(S1): S66-S76). The eAG is not equivalent to a fasting glucose. Blood 05/21/2024 4:20 PM REHABILITATION SERVICES MANAGER 05/21/2024 4:55 PM REHABILITATION SERVICES MANAGER us Leo Henry MD LAB BLOOD ORDERABLES Final Result [facility] Department [place] [address] * (ABNORMAL) Lipid panel (05/21/2024 4:20 PM REHABILITATION SERVICES MANAGER) Cholesterol 205(H) 30 - 199 mg/dL [...] 2017. Triglycerides 92 <=149 mg/dL [facility] Comment: Interpretive Data Ages < or [...] 2017. HDL 55 >=40 mg/dL [facility] Comment: Interpretive Data Ages < or [...] LDL, calculated 134(H) <=129 mg/dL [facility] Comment: Interpretive Data Ages < or [...] [facility] Blood 05/21/2024 4:20 PM REHABILITATION SERVICES MANAGER 05/21/2024 4:50 PM REHABILITATION SERVICES MANAGER Narrative [facility] - 05/22/2024 4:17 PM REHABILITATION SERVICES MANAGER Reflex us Leo Henry MD LAB BLOOD ORDERABLES Final Result [facility] Department [place] [address] * Dexa Axial Skeleton Bone Density 1 or 2 Site (08/02/2022 10:53 AM CDT) Anatomical Region Laterality Modality Body N/A Radiographic Lizeth ging Narrative 08/02/2022 3:34 PM CDT Patient Name: Karly Marques Date of : 1955 Date of scan: 08/02/2022 Bone mineral density was performed on a HoloDiamond Mind Discovery Densitometer. Based on machine cross-calibration and [...] by the International Society of Clinical Densitometry. [id number] us Khris Arthur MD IMG DXA PROCEDURES [...] agrees with it. ACC# Date Time Exam [id number] Aug 19, 2016 14:27:00 [facility] [id number] DiaScan•Jour Mamm, inc CAD, unilat L Technologist(s): Carla Harris; ; [id number] Aug 19, 2016 15:39:00 [facility] [id number] Breast US unilateral, ltd L ACC# Date Time Exam [id number] Aug 19, 2016 14:27:00 [facility] [id number] DiaScan•Jour Mamm, inc CAD, unilat L Technologist(s): Carla Harris; ; [id number] Aug 19, 2016 15:39:00 [facility] [id number] Breast US unilateral, ltd L EXAMINATION: LEFT [...] SARABIA M.D. on Aug 19 2016 4:20P [id number] Procedure Note Miscellaneous, Not In File / Provider, MD Tyler - 09/17/2016 Avery DOYLE M.D. FINAL REPORT The radiology attending physician has personally reviewed this study, and has reviewed and/or edited this written report and agrees with it. ACC# Date Time Exam [id number] Aug 19, 2016 14:27:00 [facility] [id number] Diag Mamm, inc CAD, unilat L Technologist(s): Carla Harris; ; [id number] Aug 19, 2016 15:39:00 [facility] [id number] Breast US unilateral, ltd L ACC# Date Time Exam [id number] Aug 19, 2016 14:27:00 [facility] [id number] Diag Mamm, inc CAD, unilat L Technologist(s): Carla Harris; ; [id number] Aug 19, 2016 15:39:00 [facility] [id number] Breast US unilateral, ltd L EXAMINATION: LEFT [...] SARABIA M.D. on Aug 19 2016 4:20P [id number] us Not In File Miscellaneous IMG MAMMO PROCEDURES F inal Result from Last 3 Months or Most Recently Relevant to Health Maintenance [place] [address] UHC MEDICARE ADVANTAGE [place] [address] [place] [address] Advance Directives For more information, please contact: [phone] Documents on File Type Date Recorded Patient Computer Lab Para Professional Expl anation ADVANCE DIRECTIVE 12/23/2021 2:49 PM Power of Computer Graphic Artist-Medical ADVANCE DIRECTIVE 12/23/2021 2:49 PM Living Will [...] Agents on File Name Relationship [facility] Yunior Marques Daughter Health Care Agent Jimmie Marques Spouse First Alternate Health Care Agent Care Teams Regional Vice President Life Sales Relationship Specialty Start Date End Date Justen Gale MD 2 [facility] [address] [place] [address] PCP - General 10/09/17 Liu Jerez MD Consulting Physician Gastroenterology 07/28/17 [place] [address] [facility] [address] [place] [address] Consulting Physician Pulmonary Disease 08/03/17 [place] [address] [place] [address] [address] [place] [address] Medical Oncologist/Team Lead Medical Oncology 10/23/17 [place] [address] [facility] [address] [place] [address] Surgeon Orthopedic Surgery 10/23/17 [place] [address] [address] Consulting Physician Pain Management 10/23/17 [place] [address] [address] Referring Physician General Surgery 01/26/18 [place] [address] [facility] [address] [place] [address] Consulting Physician Neurology 01/26/18
--- OUTSIDE RECORDS SUMMARY | 2024-10-08 08:14 | XMS_ITS | Encounter Summary ---
Author Organization [facility] Address [address] [place] [address] Phone Care Team Providers Care Plastic Frame Inserter Name Role Phone Lavonne Hathaway MD Primary Care Provider + [phone] Liu Jerez MD Unavailable [phone] Albert Corbin MD Unavailable [phone] Justen Gale MD Primary Care Provider [phone] Lavonne Hathaway MD Primary Care Provider + [phone] Justen Gale MD Primary Care Provider [phone] Khris Arthur MD Unavailable [phone] Ko Melendez MD Unavailable [phone] John Paul Moyer MD Unavailable Annel Rod MD Unavailable Anali MARSHALL MD, Carlos M. Unavailable [phone] Encounter Details Date Type Department Care Team ([facility] Contact Info) Description 05/15/2017 Orders Only [facility] Scanning, Provider Social History Tobacco Use Types Packs/Day Years Used Date Smoking Tobacco: Former Alcohol Use Standard Drinks/Week Comments No 0 (1 standard drink = 0.6 oz pur e alcohol) Comments Unknown Sex and Gender Information Value Date Recorded Sex Assigned at Not on file Legal Sex Female 12:24 AM MICROBIOLOGY SUPERVISOR Gender Identity Not on file [...] COVID: Recovered 02/10/2022 02/10/2022 06/10/2022 3:05 AM MICROBIOLOGY SUPERVISOR Exposure, COVID-19 Comment:Added automatically based on COVID19 lab answers indicating exposure risk 02/11/2022 02/11/2022 02/15/2022 9:06 AM C DT COVID: Suspected 05/14/2022 05/14/2022 05/14/2022 10:41 AM MICROBIOLOGY SUPERVISOR COVID: Suspected 06/07/2022 06/07/2022 06/07/2022 12:28 PM MICROBIOLOGY SUPERVISOR COVID: Suspected 06/21/2022 06/21/2022 06/21/2022 2:12 AM MICROBIOLOGY SUPERVISOR COVID: Suspected 10/05/2022 10/05/2022 10/05/2022 7:40 PM CDT COVID: Suspected 01/04/2024 01/04/2024 01/04/2024 10:30 PM CDT COVID: Suspected 02/14/2024 02/14/2024 02/15/2024 12:36 AM CDT COVID: Suspected 07/01/2024 07/01/2024 07/01/2024 2:53 PM CDT COVID: Suspected 07/01/2024 07/01/2024 07/02/2024 3:05 AM CDT documented as of this encounter Care Teams Plastic Frame Inserter Relationship Specialty Start Date End Date Lavonne Hathaway MD [address] [place] [address] [place] [address] PCP - General 08/16/16 08/17/17 Justen Gale MD [address] [facility] [address] [address] PCP - General 08/18/17 08/22/17 Lavonne Hathaway MD [address] [place] [address] [place] [address] PCP - General Family Medicine 08/23/17 10/08/17 Justen Gale MD 2 [facility] [address] [address] PCP - General 10/09/17 Liu Jerez MD [address] [place] [address] [place] [address] Consulting Physician Gastroenterology 07/28/17 [place] [address] [facility] [address] [place] [address] Consulting Physician Pulmonary Disease 08/03/17 Khris Arthur MD [address] [facility] [address] [place] [address] Medical Oncologist/Health And Wellness Advisor Medical Oncology 10/23/17 [place] [address] [facility] [address] [place] [address] Surgeon Orthopedic Surgery 10/23/17 [place] [address] [facility] [address] [place] [address] Consulting Physician Pain Management 10/23/17 [place] [address] [facility] [address] [place] [address] Referring Physician General Surgery 01/26/18 [place] [address] [facility] [address] [place] [address] Consulting Physician Neurology 01/26/18 documented as of this encounter
--- OUTSIDE RECORDS SUMMARY | 2024-10-08 08:14 | XMS_ITS ---
Author Organization [facility] Address [address] [facility] [place] [address] Care Team Providers Care Social Work Coordinator Name Role Phone Justen Gale MD Primary Care Provider [phone] Active Problems Problem Noted Date Diagnosed Date [...]
--- OUTSIDE RECORDS SUMMARY | 2024-10-08 08:14 | XMS_ITS | Encounter Summary ---
Author Organization [facility] Address [address] [place] [address] Phone Care Team Providers Care State Assessed Properties Director Name Role Phone Justen Gale MD Primary Care Provider David Roberts APRN, OYSTER CULTURIST Unavailable Annel Rod MD Unavailable Reason for Visit * Reason Comments Medication Refill Encounter Details Date Type Department Care Team (Late st Contact Info) Description 08/07/2023 Refill [facility] - [place] #2 [place] [address] Annel Rod MD #[address] [address] Medication Refill Social History [...] Description 10/22/2024 11:15 AM CDT Office Visit [facility] - [facility]2 [place] [address] Annel Rod MD #[address] [address] 11/13/2024 2:00 PM CDT [facility]ointment [facility] 1 [place] [address] Angelito Alegria APRN, NETTA #[address] [address] Discharge Disposition: Discharged to home or Selfcare documented as of this encounter Visit Diagnoses Not on filedocumented in this encounter Additional Health Concerns Infection Onset Date Last Indicated Resolved Time COVID - 19 08/01/2024 08/01/2024 08/01/2024 3:20 PM CDT Assessment Noted Time PHQ-9 Depression Total Score: 8 01/18/20 2:24 PM CDT documented as of this encounter Care Teams State Assessed Properties Director Relationship Specialty Start Date End Date Justen Gale MD #[address] [place] [address] PCP - General Family Medicine 10/17/17 David Roberts APRN, OYSTER CULTURIST #2 [place] [address] Nurse Practitioner Advanced Practice Nurse 01/31/22 Annel Rod MD #[address] [address] Consulting Physician Endocrinology 07/01/22 documented as of this encounter
--- OUTSIDE RECORDS SUMMARY | 2024-10-08 08:14 | XMS_ITS | Encounter Summary ---
Author Organization [facility] Address [address] [place] [address] Phone Care Team Providers Care Sales And Marketing Director Name Role Phone Justen Gale MD Primary Care Provider David Roberts APRN, TIRE WORKER Unavailable [phone] Annel Rod MD Unavailable Reason for Visit * Reason Comments Medication Refill Encounter Details Date Type Department Care Team (Late st Contact Info) Description 07/06/2023 Refill [facility] #2 [place] [phone] Justen Gale MD #[address] [address] Medication Refill Social History Tobacco Use Types [...] Dept 06/27/23 Office Visit Justen Gale MD [facility] 01/17/23 Office Visit Catrina Quiñonez MD [facility] Showing recent visits within past [...] [facility] - Endocrinology - [place] [address] [place] [address] Annel Rod MD #[address] [facility] [address] [place] [address] 11/13/2024 2:00 PM CDT Appointment [facility] Cardiology Services 1 [place] [address] Angelito Alegria, PUTTY TINTER MAKER, TIRE WORKER #2 [facility] [address] [place] [address] Discharge Disposition: Discharged to home or Selfcare documented as of this encounter Visit Diagnoses Not on filedocumented in this encounter Additional Health Concerns Infection Onset Date Last Indicated Resolved Time COVID - 19 08/01/2024 08/01/2024 08/01/2024 3:20 PM CDT Assessment Noted Time PHQ-9 Depression Total Score: 8 01/18/20 23 2:24 PM CDT documented as of this encounter Care Teams Sales And Marketing Director Relationship Specialty Start Date End Date Justen Gale MD #[address] [address] PCP - General Family Medicine 10/17/17 David Roberts APRN, TIRE WORKER #2 [place] [address] Nurse Practitioner Advanced Practice Nurse 01/31/22 Annel Rod MD #[address] [address] Consulting Physician Endocrinology 07/01/22 documented as of this encounter
--- OUTSIDE RECORDS SUMMARY | 2024-10-08 08:14 | XMS_ITS | Encounter Summary ---
Author Organization [facility] Address [address] [place] [address] Phone Care Team Providers Care Inspector Grain Mill Products Name Role Phone Justen Gale MD Primary Care Provider David Roberts APRN, BLIND EYELETTER Unavailable [phone] Annel Rod MD Unavailable Reason for Visit * Reason Onset Date Comments Advice Only 08/19/2024 Follow-up 08/19/2024 Encounter Details Date Type Department Care Team (Late st Contact Info) Description 08/19/2024 Telephone [facility] - [facility] #2 [place] [address] Justen Gale MD [address] [address] Advice Only; Follow-up Social History Tobacco Use [...] Total Score - Questions 1-9 0 07/23 [facility] - Occupational Stress Questionnaire Answer Date [...] visit * Telephone Encounter - Angelito Alegria, ZONING ASSISTANT, BLIND EYELETTER - 08/19/2024 9:04 AM CDT Forwarding * Telephone Encounter - Isaura Weiss RN - 08/19/2024 8:37 AM CDT Situation: Strep throat follow up Background: Patient contacting PCP office. Patient was seen in ED on 08/09 and 08/12 in [place] (records in chart). Diagnosed with strep. Assessment: [...] CDT Symptom: Sore Throat Outcome: Transfer to fourth mate queue Reason: Caller denied all higher acuity questions The caller accepted this outcome. Caller Denied: * Struggling for each breath (severe trouble breathing) * Can't swallow saliva (drooling) documented in this encounter Plan of Treatment Upcoming Encounters Date Type Department Care Team (Late st Contact Info) Description 10/22/2024 11:15 AM CDT Office Visit [facility] - Endocrinology - [place] #2 [place] [address] Annel Rod MD [address] [phone] 11/13/2024 2:00 PM CDT Appointment [facility] Cardiology Services 1 [place] [address] Angelito Alegria, ZONING ASSISTANT, BLIND EYELETTER #[address] [address] Discharge Disposition: Discharged to home or Selfcare documented as of this encounter Visit Diagnoses Not on filedocumented in this encounter Additional Health Concerns Assessment Noted Time PHQ-9 Depression Total Score: 0 08/02/19 25 1:09 PM CDT documented as of this encounter Care Teams Inspector Grain Mill Products Relationship Specialty Start Date End Date Justen Gale MD #2 [facility] [address] [place] [address] PCP - General Family Medicine 10/17/17 David Roberts APRN, BLIND EYELETTER #2 [place] [address] Nurse Practitioner Advanced Practice Nurse 01/31/22 Annel Rod MD #[address] [address] Consulting Physician Endocrinology 07/01/22 documented as of this encounter
--- OUTSIDE RECORDS SUMMARY | 2024-10-08 08:14 | XMS_ITS | Encounter Summary ---
Author Organization [facility] Address [address] [place] [address] Phone Care Team Providers Care Etcher Aircraft Name Role Phone Justen Gale MD Primary Care Provider David Roberts APRN, NIGHT CLERK AUDITOR Unavailable Annel Rod MD Unavailable Reason for Visit * Reason Comments Medication Refill Encounter Details Date Type Department Care Team (Late st Contact Info) Description 04/13/2023 Refill [facility] - [place] #2 [place] [address] Annel Rod MD #[address] [address] Medication Refill Social History Tobacco [...] Jennifer Wang, RN - 04/14/2023 10:00 AM RESTROOMS [facility] Requested Prescriptions Pending Prescriptions Disp Refills ??? Continuous Blood Gluc Sensor (FreeStyle Eileen 2 Sensor) Misc [Pharmacy Med Name: FREESTYLE EILEEN 2 SENSOR] 6 Each 1 Sig: APPLY 1 SENSOR AND WEAR FOR 14 DAYS TO CHECK BLOOD SUGAR Next appt: 05/30/2023 ROOMS [facility] documented in this encounter Plan of Treatment Upcoming Encounters Date Type Department Care Team (Late st Contact Info) Description 10/22/2024 11:15 AM CDT Office Visit [facility]ology - [place] #2 [place] [address] Annel Rod MD #2 [facility] [address] [place] [address] 11/13/2024 2:00 PM CDT [facility] 1 [place] [address] Angelito Alegria, ZAMZAM, NIGHT CLERK AUDITOR #2 [facility] [address] [place] [address] Discharge Disposition: Discharged to home or Selfcare documented as of this encounter Visit Diagnoses Not on filedocumented in this encounter Additional Health Concerns Infection Onset Date Last Indicated Resolved Time COVID - 19 08/01/2024 08/01/2024 08/01/2024 3:20 PM CDT Assessment Noted Time PHQ-9 Depression Total Score: 8 01/18/20 2:24 PM CDT documented as of this encounter Care Teams Etcher Aircraft Relationship Specialty Start Date End Date Justen Gale MD #2 [facility] [address] [place] [address] PCP - General Family Medicine 10/17/17 David Roberts APRN, NIGHT CLERK AUDITOR #2 [place] [address] Nurse Practitioner Advanced Practice Nurse 01/31/22 Annel Rod MD #[address] [address] Consulting Physician Endocrinology 07/01/22 documented as of this encounter
--- OUTSIDE RECORDS SUMMARY | 2024-10-08 08:14 | XMS_ITS | Encounter Summary ---
Author Organization [facility] Address [address] [place] [address] Phone Care Team Providers Care Metal Work Duct Installer Name Role Phone Liu Jerez MD Unavailable [phone] Albert Corbin MD Unavailable [phone] Justen Gale MD Primary Care Provider Khris Arthur MD Unavailable [phone] Ko Melendez MD Unavailable John Paul Moyer MD Unavailable Annel Rdo MD Unavailable Anali MARSHALL MD, Carlos M. Unavailable [phone] Encounter Details Date Type Department Care Team [...] on file Legal Sex Female 12:24 AM SILVERWARE WASHER Gender Identity Not on file Sexual [...] COVID: Recovered 02/10/2022 02/10/2022 06/10/2022 3:05 AM SILVERWARE WASHER Exposure, COVID-19 Comment:Added automatically based on COVID19 lab answers indicating exposure risk 02/11/2022 02/11/2022 02/15/2022 9:06 AM C DT COVID: Suspected 05/14/2022 05/14/2022 05/14/2022 10:41 AM SILVERWARE WASHER COVID: Suspected 06/07/2022 06/07/2022 06/07/2022 12:28 PM SILVERWARE WASHER COVID: Suspected 06/21/2022 06/21/2022 06/21/2022 2:12 AM SILVERWARE WASHER COVID: Suspected 10/05/2022 10/05/2022 10/05/2022 7:40 PM CDT COVID: Suspected 01/04/2024 01/04/2024 01/04/2024 10:30 PM CDT COVID: Suspected 02/14/2024 02/14/2024 02/15/2024 12:36 AM CDT COVID: Suspected 07/01/2024 07/01/2024 07/01/2024 2:53 PM CDT COVID: Suspected 07/01/2024 07/01/2024 07/02/2024 3:05 AM CDT documented as of this encounter Care Teams Metal Work Duct Installer Relationship Specialty Start Date End Date Justen Gale MD [address] [facility] [address] [place] [address] PCP - General 10/09/17 Liu Jerez MD Consulting Physician Gastroenterology 07/28/17 [place] [address] [facility] [address] [place] [address] Consulting Physician Pulmonary Disease 08/03/17 [place] [address] [place] [address] [address] [place] [address] Medical Oncologist/Cattle Knocker Medical Oncology 10/23/17 [place] [address] [address] Surgeon Orthopedic Surgery 10/23/17 [place] [address] [facility] [address] [place] [address] Consulting Physician Pain Management 10/23/17 [place] [address] [address] Referring Physician General Surgery 01/26/18 [place] [address] [facility] [address] [place] [address] Consulting Physician Neurology 01/26/18 documented as of this encounter
--- OUTSIDE RECORDS SUMMARY | 2024-10-08 08:14 | XMS_ITS | Encounter Summary ---
Author Organization [facility] Address [address] [place] [address] Phone Care Team Providers Care Learning Specialist Name Role Phone Justen Gale MD Primary Care Provider [phone] David Roberts APRN, FIBER DESIGN ENGINEER Unavailable [phone] Annel Rod MD Unavailable Reason for Visit * Reason Comments Medication Refill Encounter Details Date Type Department Care Team (Late st Contact Info) Description 07/14/2022 Refill [facility] - Family Medicine [facility] [place] [address] [place] [address] Justen Gale MD [address] [address] Medication Refill Social History Tobacco Use Types [...] Visit [facility] - Endocrinology - [place] [address] [place] [address] Annel Rod MD #2 [facility] [address] [place] [address] 11/13/2024 2:00 PM CDT [facility] [address] [place] [address] Angelito Alegria APRN, FIBER DESIGN ENGINEER #2 [facility] [address] [place] [address] Discharge Disposition: Discharged to home or Selfcare documented as of this encounter Visit Diagnoses Not on filedocumented in this encounter Additional Health Concerns Infection Onset Date Last Indicated Resolved Time COVID - 19 08/01/2024 08/01/2024 08/01/2024 3:20 PM CDT Assessment Noted Time PHQ-9 Depression Total Score: 0 07/21/19 21 3:00 PM CDT documented as of this encounter Care Teams Learning Specialist Relationship Specialty Start Date End Date Justen Gale MD #2 [facility] [address] [place] [address] PCP - General Family Medicine 10/17/17 David Roberts, DENTAL HYGIENE TEACHER, FIBER DESIGN ENGINEER [address] [place] [address] Nurse Practitioner Advanced Practice Nurse 01/31/22 Annel Rod MD [address]2 [facility] [address] [place] [address] Consulting Physician Endocrinology 07/01/22 documented as of this encounter
--- OUTSIDE RECORDS SUMMARY | 2024-10-08 08:14 | XMS_ITS | Encounter Summary ---
Author Organization [facility] Address [address] [place] [address] Phone Care Team Providers Care Receptionist Airline Lounge Name Role Phone Justen Gale MD Primary Care Provider David Roberts APRN, GARBAGE COLLECTION SUPERVISOR Unavailable Annel Rod MD Unavailable Reason for Visit * Reason Comments Medication Refill Encounter Details Date Type Department Care Team (Late st Contact Info) Description 08/30/2022 Refill [facility] - Family Medicine [facility] [address] [place] [address] Justen Gale MD #[address] [address] Medication Refill Social History Tobacco Use Types [...] [place] 05/02/22 Office Visit Justen [place]ale [place] [facility] [place] 03/03/22 Office Visit Pili Elkins APRN, [facility] [place] 01/03/22 Office Visit Dannielle Berg PAC [facility] [place] 12/07/21 Office Visit Pili Elkins APRN, [facility] [place] 11/09/21 Office Visit Pili Elkins APRN, [facility] [place] 10/08/21 Office Visit Angelito Alegria APRN, [facility]TA [facility] [place] 08/30/21 [facility] within past 365 [...] Visit [facility] - Endocrinology - [place] #[address] [place] [address] Annel Rod MD #[address] [address] 11/13/2024 2:00 PM CDT Appointment [facility] Card[facility] [address] [place] [address] Angelito Alegria, FIGHTER PILOT, GARBAGE COLLECTION SUPERVISOR #[address] [address] Discharge Disposition: Discharged to home or Selfcare documented as of this encounter Visit Diagnoses Not on filedocumented in this encounter Additional Health Concerns Infection Onset Date Last Indicated Resolved Time COVID - 19 08/01/2024 08/01/2024 08/01/2024 3:20 PM CDT Assessment Noted Time PHQ-9 Depression Total Score: 0 07/21/19 3:00 PM CDT documented as of this encounter Care Teams Receptionist Airline Lounge Relationship Specialty Start Date End Date Justen Gale MD #[address] [address] PCP - General Family Medicine 10/17/17 David Roberts, FIGHTER PILOT, GARBAGE COLLECTION SUPERVISOR [address]2 [place] [address] Nurse Practitioner Advanced Practice Nurse 01/31/22 Annel Rod MD #[address] [address] Consulting Physician Endocrinology 07/01/22 documented as of this encounter
--- OUTSIDE RECORDS SUMMARY | 2024-10-08 08:14 | XMS_ITS | Clinical Summary ---
Author Organization [facility] Address [address] [place] [address] Phone Care Team Providers [facility] Expedition Guide Name Role Phone Justen Gale MD Primary Care Provider [phone] David Roberts APRN, YARD INSPECTOR Unavailable Annel Rod MD Unavailable Allergies Active [...] long-term current use of insulin ([facility]) Diagnosis: Diabetes Type 2 Blood [...] Blood Gluc Sensor (FreeStyle Eileen 2 Sensor) [facility] Tablet by mouth. 12/28/19 24 Active Multiple Vitamins-[place] als (WOMENS MULTI PO) Take by mouth. [...] 2 Sensor) [facility] [place] 1 Each by Does not apply route every 14 days. Change sensor every 14 days. E11.42, insulin dependent 6 Each 1 04/25/19 25 Active Continuous Glucose Sensor (FreeStyle Eileen 2 Sensor) [facility] [place] 1 Each by Does not apply route [...] taking until cleared by PCP office or fuels sales representative. Will need to taper off slowly. Indications: Polymyalgia Rheumatica 30 Tablet 10/01/19 25 Active predniSONE (DELTASONE) 10 MG TabletIndicati ons:Polymyalgi a Rheumatica Take 1 Tablet by mouth daily. Do not stop taking until cleared by PCP office or fuels sales representative. Will need to taper off slowly. Indications: [...] Overview: Added automatically from request for surgery [id number] Lymphedema of left upper extremity 08/09/2016 Pulmonary embolism 08/09/2016 Overview (11/09/2017): Last Assessment & Plan: On Rivaroxaban Arthralgia of ankle 01/26/2015 Cellulitis of breast 11/11/2014 Encounters Date Type Department Care Team Description 10/08/2024 [facility] [address] [place] [phone] Justen Gale MD Abdominal Pain 09/30/2024 MyChart RX Renewal [facility] [address] [place] [address] Dulce Wolff, MOBILE PET GROOMER, YARD INSPECTOR Medication Renewal Reviewed 09/29/2024 [facility] [address] [place] [phone] Justen Gale MD Urinary Tract Infection 09/23/2024 [facility] [address] [place] [phone] Justen Gale MD Breathing Problem; Pain 09/23/2024 [facility]phone [facility] [address] [place] [phone] Justen Gale MD Pain 09/11/2024 [facility] [address] [place] [phone] Justen Gale MD Follow-up 09/06/2024 1:15 PM CDT Office Visit [facility] [address] [place] [address] Dulce Wolff, MOBILE PET GROOMER, YARD INSPECTOR Enlarged tonsils (Primary Dx); Polymyalgia rheumatica (HCC); Oral candidiasis; Edema, unspecified type Discharge Disposition: Discharged to home or Selfcare 09/06/2024 Travel 09/03/2024 Telephone [facility] [address] [place] [address] Justen Gale MD Follow-up 09/02/2024 [facility] [address] [place] [phone] Justen Gale MD Sore Throat 08/20/2024 1:15 PM CDT Office Visit [facility] [address] [place] [address] Justen Gale MD Acute maxillary sinusitis, recurrence not specified (Primary Dx) Discharge Disposition: Discharged to home or Selfcare 08/20/2024 Travel 08/19/2024 Telephone [facility] [address] [place] [address] Justen Gale MD Advice Only; Follow-up 08/14/2024 Telephone [facility] Endocrinology - [place] [address] [place] [address] Annel Rod MD High Blood Sugar 08/13/2024 [facility] [address] [place] [phone] Justen Gale MD High Blood Sugar 08/07/2024 9:20 AM CDT Lab [facility] [address] [phone] [facility]Ancillary Body aches; Diffuse arthralgia Discharge Disposition: Discharged to home or Selfcare 08/07/2024 8:30 AM CDT Office Visit [facility] [address] [place] [phone] Angelito Alegria APRN, CNP Diffuse arthralgia (Primary Dx); Dyspnea on exertion; Type 2 diabetes mellitus with diabetic polyneuropathy, with long-term current use of insulin (HCC) Discharge Disposition: Discharged to home or Selfcare 08/07/2024 Results Follow-Up [facility] [address] [place] [phone] Angelito Alegria APRN, CNP CREATINE KINASE (CK) TOTAL, ERYTHROCYTE SEDIMENTATION RATE (ESR), C-REACTIVE PROTEIN (CRP) QUANT 08/07/2024 Nurse Triage [facility] Central Call Center [address] [place] [phone] Justen Gale MD Breathing Problem; Muscle Pain 08/06/2024 Travel 08/05/2024 MyChart RX Renewal [facility] Endocrinology [facility] [address] [place] [phone] Annel Rod MD Medication Renewal Reviewed 08/05/2024 Nurse Triage [facility] Central Call Center [address] [place] [phone] Justen Gale MD Muscle Pain; Follow-up 08/03/2024 3:36 AM CDT - 08/03/2024 7:05 AM CDT Emergency [facility] Emergency [address] [place] [phone] Sergio Rivera MD Myalgia Discharge Disposition: Discharged to home or Selfcare 08/02/2024 Travel 08/02/2024 [facility] [address] [place] [phone] Justen Gale MD Hemoptysis 08/02/2024 [facility]phone [facility] [address] [place] [phone] Justen Gale MD Results 08/02/2024 Telephone [facility] [address] [place] [address] Angelito Alegria APRN, NETTA Results 08/02/2024 MyChart RX Renewal [facility] [address] [place] [phone] Annel Rod MD Medication Renewal Reviewed 08/01/2024 2:13 PM CDT - 08/01/2024 4:16 PM CDT [facility] [address] [place] [phone] Jack Leiva MD Dyspnea on exertion Discharge Disposition: Discharged to home or Selfcare 08/01/2024 1:15 PM CDT Office Visit [facility] [address] [place] [address] Angelito Alegria APRN, YARD INSPECTOR Body aches (Primary Dx) Discharge Disposition: Discharged to home or Selfcare 08/01/2024 Travel 08/01/2024 [facility] [address] [place] [phone] Justen Gale MD Pain 07/22/2024 Telephone [facility] [address] [place] [phone] Justen Gale MD Appointment 07/11/2024 Nurse Triage [facility] Central Call Center [address] [place] [phone] Justen Gale MD Toe Problem from Last [...] Recorded In the past 12 months has [employer], gas, oil, or water [employer] threatened to shut off services in your [...] often do you attend chur ch or orthodoxy services? More than 4 times [...] Total Score - Questions 1-9 0 07/23 [facility] - Occupational [...] - Endocrinology [facility] [address] [place] [phone] Annel Rod MD [address] [phone] 11/13/2024 2:00 PM CDT [facility] [address] [place] [phone] Angelito Alegria APRN, YARD INSPECTOR [address] [place] [id number] Discharge Disposition: Discharged to home or Selfcare [...] Priority Date/Time Associated Diagnosis Comments CT - SPINE 10/06/2024 12:[address] - ABDOMEN/PELVIS 10/03/2024 1 2:00 AM CDT XR - CHEST 09/27/2024 12:00 AM CDT [...] screening for human papillomavirus (HPV) PATHOLOGY CYTOLOGY [facility] [facility] JUSTICE Routine 07/05/2022 2:24 PM CDT Encounter for gynecological examination with abnormal finding HM COLONOSCOPY Routine 01/09/2020 AMB REFERRAL TO PODIATRY Routine 08/13/2019 POCT STOOL, OCCULT BLOOD, DIAGNOSTIC Routine 09/07/2018 1:20 PM CDT Generalized abdominal pain from Last 3 Months or Most Recently Relevant to Health Maintenance Results * CT - SPINE (10/06/2024 12:00 AM CDT) 10/06/2024 us Provider Scan IMG CT ORDERABLES Final Result Performing Organization Address [facility] de Phone Number SCAN * CT - ABDOMEN/PELVIS (10/03/2024 12:00 AM CDT) 10/03/2024 us Provider Scan IMG CT ORDERABLES Final Result Performing Organization Address [facility] de Phone Number SCAN * XR - CHEST (09/27/2024 12:00 AM CDT) Only the most recent of3 resultswithin the time period is included. 09/27/2024 us Provider Scan IMG DIAGNOSTIC ORDERABLES Final Result Performing Organization Address [facility] de Phone Number SCAN * PAIN CONSULT (09/19/2024 12:00 AM CDT) Only the most recent of2 resultswithin the time period is included. 09/19/2024 us Justen Gale MD GENERIC SCAN ORDERS CONSULT F inal Result Performing Organization Address [facility] Co de Phone Number SCAN * CT - HEAD/NECK (08/13/2024 12:00 AM CDT) 08/13/2024 us Provider Scan IMG CT ORDERABLES Final Result Performing Organization Address [facility] Co de Phone Number SCAN * (ABNORMAL) ERYTHROCYTE SEDIMENTATION RATE (ESR) (08/07/2024 8:59 AM CDT) Only the most recent of2 resultswithin the time period is included. ESR (SED RATE, ERYTHROCYTE SEDIMENTATION RATE) 52(H) <30 mm/h 08/07/2024 12:34 PM CDT [facility] Comment: Patients presenting with increased level of fibrinogen, gamma globulins, or abnormally shaped RBCs could affect the results for the erythrocyte sedimentation rate (ESR). Results should be clinically correlated. Blood Venipuncture / Unknown 08/07/2024 8:59 AM CDT 08/07/2024 8:59 AM CDT Angelito Alegria APRN, CNP HEMATOLOGY ORDER CHAPARRO Final Result Performing Organization Address [facility] de Phone Number [facility] [address] [place] [address] * CREATINE KINASE (CK) TOTAL (08/07/2024 8:59 AM CDT) Only the most recent of2 resultswithin the time period is included. CK (CPK) 151 29 - 168 U/L 08/07/2024 1:08 PM CDT [facility] Blood Venipuncture / Unknown 08/07/2024 8:59 AM CDT 08/07/2024 8:59 AM CDT Angelito Alegria APRN, CNP HEMATOLOGY ORDER CHAPARRO Final Result Performing Organization Address [facility] Co de Phone Number [facility] [address] [place] [address] * (ABNORMAL) C-REACTIVE PROTEIN (CRP) QUANT (08/07/2024 8:59 AM CDT) Only the most recent of2 resultswithin the time period is included. C-REACTIVE PROTEIN 1.21(H) <0.50 mg/dL 08/07/2024 12:54 PM CDT [facility] Blood Venipuncture / Unknown 08/07/2024 8:59 AM CDT 08/07/2024 8:59 AM CDT Angelito Alegria APRN, CNP CHEMISTRY ORDERA BLES Final Result Performing Organization Address City/[facility]/ZIP Co de Phone Number [facility] [address] [place] [address] * (ABNORMAL) POCT GLUCOSE (08/07/2024 8:31 AM [...] Sen Sy M.D. JANIYA: JANIYA Report ID: [id number] Reading Location: [id number] Procedure Note Dillon Sy MD - 08/03/2024 [...] Sen Sy M.D. JANIYA: JANIYA Report ID: [id number] Reading Location: [id number] IMPRESSION: Negative right hip. Sergio Rivera MD [...] signed by Patrick STOCKTON: KATH Report ID: [id number] Reading Location: [id number] Procedure Note Patrick Zhou MD - 08/03/2024 [...] signed by Patrick STOCKTON: KATH Report ID: [id number] Reading Location: [id number] IMPRESSION: Mild bilateral infiltrates are suspected superimposed on chronic lung changes. Sergio Rivera MD [facility] DIAGNOSTIC ORDERABLES Final Result * CBC with Auto Differential (08/02/2024 11:21 PM CDT) Only the most recent of2 resultswithin the time period is included. WBC 9.26 4.00 - 12.00 10(3)/mcL 08/03/2024 12:08 AM CDT [facility] RBC 4.62 3.80 - 5.30 10(6)/mcL 08/03/2024 12:08 AM CDT [facility] HEMOGLOBIN (HGB) 13.5 12.0 - 15.8 g/dL 08/03/2024 12:08 AM CDT [facility] HEMATOCRIT (HCT) 42.9 36.0 - 47.0 % 08/03/2024 12:08 AM CDT [facility] MCV 92.9 82.0 - 96.0 fL 08/03/2024 12:08 AM CDT [facility] MCH 29.2 26.0 - 34.0 pg 08/03/2024 12:08 AM CDT [facility] MCHC 31.5 31.0 - 36.0 g/dL 08/03/2024 12:08 AM CDT [facility] PLATELET COUNT 272 140 - 440 10(3)/mcL 08/03/2024 12:08 AM CDT [facility] RDW 12.8 11.8 - 15.5 % 08/03/2024 12:08 AM CDT [facility] MPV 10.2 9.7 - 12.4 fL 08/03/2024 12:08 AM CDT [facility] NEUTROPHILS 62.5 47.0 - 73.0 % 08/03/2024 12:08 AM CDT [facility] LYMPHOCYTES 27.1 18.0 - 42.0 % 08/03/2024 12:08 AM CDT [facility] MONOCYTES 7.1 4.0 - 12.0 % 08/03/2024 12:08 AM CDT [facility] EOSINOPHILS 3.0 0.0 - 5.0 % 08/03/2024 12:08 AM CDT [facility] BASOPHILS 0.3 0.0 - 1.0 % 08/03/2024 12:08 AM CDT [facility] ABSOLUTE NEUTROPHILS 5.78 1.60 - 7.70 10(3)/mcL 08/03/2024 12:08 AM CDT [facility] ABSOLUTE LYMPHOCYTES 2.51 1.30 - 3.20 10(3)/mcL 08/03/2024 12:08 AM CDT [facility] ABSOLUTE MONOCYTES 0.66 0.20 - 1.00 10(3)/mcL 08/03/2024 12:08 AM CDT [facility] ABSOLUTE EOSINOPHIL 0.28 0.00 - 0.40 10(3)/mcL 08/03/2024 12:08 AM CDT [facility] ABSOLUTE BASOPHILS 0.03 0.00 - 0.10 10(3)/mcL 08/03/2024 12:08 AM CDT [facility] NRBC PER 100 WBC 0 08/04/19 25 12:08 AM CDT [facility] Blood Venipuncture / Unknown 08/02/2024 11:21 PM CDT 08/03/2024 12:05 AM CDT us Sergio Rivera MD HEMATOLOGY ORDERABLES Final Resu lt [facility] [address] [place] [address] * (ABNORMAL) CMP (Comprehensive Metabolic Panel) (08/02/2024 11:21 PM CDT) Only the most recent of2 resultswithin the time period is included. SODIUM 138 136 - 145 mmol/L 08/03/2024 12:29 AM CDT [facility] POTASSIUM 4.4 3.5 - 5.1 mmol/L 08/03/2024 12:29 AM CDT [facility] CHLORIDE 104 98 - 107 mmol/L 08/03/2024 12:29 AM CDT [facility] CO2, VENOUS 26 22 - 30 mmol/L 08/03/2024 12:29 AM CDT [facility] ANION GAP 12.4 <18.0 mmol/L 08/03/2024 12:29 AM CDT [facility] GLUCOSE 353(H) 70 - 99 mg/dL 08/03/2024 12:29 AM CDT [facility] BUN 18 10 - 20 mg/dL 08/03/2024 12:29 AM CDT [facility] CREATININE, BLOOD 0.80 0.60 - 1.00 mg/dL 08/03/2024 12:29 AM [facility] BUN/CREATININE RATIO 23(H) 12 - 20 ratio 08/03/2024 12:29 AM [facility] TOTAL PROTEIN 8.4(H) 6.0 - 8.0 g/dL 08/03/2024 12:29 AM [facility] ALBUMIN 3.8 3.5 - 5.0 g/dL 08/03/2024 12:29 AM [facility] A/G RATIO 0.8(L) 1.0 - 2.2 08/03/2024 12:29 AM [facility] CALCIUM 10.0 8.7 - 10.5 mg/dL 08/03/2024 12:29 AM [facility] T BILI 0.4 0.2 - 1.2 mg/dL 08/03/2024 12:29 AM [facility] SGOT (AST) 23 <43 U/L 08/03/2024 12:29 AM [facility] SGPT (ALT) 22 <56 U/L 08/03/2024 12:29 AM [facility] ALKALINE PHOSPHATASE 67 40 - 150 U/L 08/03/2024 12:29 AM [facility] GFR, ESTIMATED >60 >=60 08/03/2024 12:29 AM [facility] Comment: Creatinine Clearance is the preferred criteria for selecting drug dose adjustments in renally impaired patients. The GFR is provided as additional pertinent clinical information. GFR is reported in mL/min/1.73 sq m. Calculation based on the Chronic Kidney Disease Epidemiology Collaboration (CKD- EPI) equation refit without adjustment for race. GFR, EST. >60 >=60 025 12:29 AM [facility] GFR, EST. NONAFRICAN >60 >=60 08/03/2024 12:29 AM [facility] Blood Venipuncture / Unknown 08/02/2024 11:21 PM CDT 08/03/2024 12:05 AM CDT us Sergio Rivera MD CHEMISTRY ORDERABLES Final Resul t Performing Organization Address City/[facility]/ZIP Co de Phone Number [facility] [address] [place] [address] * TROPONIN I, HIGH SENSITIVITY (HSTRP) (08/01/2024 2:48 PM CDT) TROPONIN I, HIGH SENSITIVITY- [place] 4 <=14 ng/L 08/01/2024 3:45 PM CDT [facility] Comment: High-sensitivity troponin I results are reported in ng/L making the result appear to be 1,000 times higher than the contemporary troponin I value which is reported in ng/ml. Results from [place]. Blood Venipuncture / Unknown 08/01/2024 2:48 PM CDT 08/01/2024 3:08 PM CDT us Jack Leiva MD CHEMISTRY ORDERABLES Deann l Result [facility] [address] [place] [address] * Gold Top Tube (08/01/2024 2:48 PM CDT) Blood No Phlebotomy Charged / Unknown 08/01/2024 2:48 PM CDT 08/01/2024 3:12 PM CDT us Jack Leiva MD CHEMISTRY ORDERABLES Deann l Result [facility] [address] [place] [address] * Blue Top Tube (08/01/2024 2:48 PM CDT) Blood No Phlebotomy Charged / Unknown 08/01/2024 2:48 PM CDT 08/01/2024 3:12 PM CDT us Jack Leiva MD HEMATOLOGY ORDERABLES Fin al Result Performing Organization Address City/[facility]/ZIP Co de Phone Number [facility] [address] [place] [address] * Magnesium (08/01/2024 2:48 PM CDT) Pathologist [facility] MAGNESIUM 1.6 1.6 - 2.6 mg/dL 08/01/2024 3:39 PM CDT [facility] Blood Venipuncture / Unknown 08/01/2024 2:48 PM CDT 08/01/2024 3:08 PM CDT us Jack Leiva MD CHEMISTRY ORDERABLES Deann l Result Performing Organization Address [facility] Co de Phone Number [facility] [address] [place] [address] * B-Type Natriuretic Peptide (BNP) (08/01/2024 2:48 PM CDT) [facility] B TYPE NATRIURETIC PEPTIDE 23 <100 pg/mL 08/01/2024 3:37 PM CDT [facility] Blood Venipuncture / Unknown 08/01/2024 2:48 PM CDT 08/01/2024 3:08 PM CDT us Jack Leiva MD CHEMISTRY ORDERABLES Deann l Result Performing Organization Address City/[facility]/ZIP Co de Phone Number [facility] [address] [place] [address] * EKG 12 LEAD (08/01/2024 2:41 PM CDT) Ventricular Rate 75 BPM EXTERNAL EKG Atrial Rate 75 BPM EXTERNAL EKG P-R Interval 134 ms EXTERNAL EKG QRS Duration 82 ms EXTERNAL EKG Q-T Duration 380 ms EXTERNAL EKG QTC CALCULATION 424 ms EXTERNAL EKG P [place] -77 degrees EXTERNAL EKG R [place] 28 degrees EXTERNAL EKG T [place] 53 degrees EXTERNAL EKG 08/01/2024 2:41 PM CDT Impressions EXTERNAL EKG - 08/04/2024 12:00 PM CDT Atrial-sensed ventricular-paced rhythm Abnormal ECG No previous ECGs available Confirmed by Maryann Clay ([id number]) on 08/04/2024 11:59:59 AM Narrative Procedure Note Maryann Clay MD - 08/04/2024 IMPRESSION: Atrial-sensed ventricular-paced rhythm Abnormal ECG No previous ECGs available Confirmed by Maryann Clay ([id number]) on 08/04/2024 11:59:59 AM us Jack Leiva [...] Romelia Bowen D.O. PS: PS Report ID: [id number] Reading Location: [id number] Procedure Note Romelia Bowen DO - 08/01/2024 [...] Romelia Bowen D.O. PS: PS Report ID: [id number] Reading Location: [id number] IMPRESSION: Patchy left basilar airspace opacities, which may be related to subsegmental atelectasis/scarring versus developing airspace disease. Jack Leiva MD IMG DIAGNOSTIC ORDERABLES Final Result * RSV,SARS-COV-2,INFLUENZA A&B BY PCR (08/01/2024 2:28 PM CDT) FLU A Negative Negative, Error 08/01/2024 3:20 PM CDT [facility] FLU B Negative Negative 08/01/2024 3:20 PM CDT [facility] RESP SYNC VIRUS Negative Negative 3:20 PM CDT [facility] SARSCOV2 NOT DETECTED (Reference Range for this test is Not Detected) 08/01/2024 3:20 PM CDT [facility] Comment:This test was perfor med by a Reverse Pig Sticker PCR Method. Swab NASOPHARYNGEAL STRUCTURE / Unknown Non-Phlebotomy Collection / Unknown 08/01/2024 2:28 PM CDT 08/01/2024 2:33 PM CDT Jack Leiva MD MICROBIOLOGY - GENERAL OR DERABLES Final Result Performing Organization Address City/State/[facility] Co de Phone Number [facility] [address] [place] [address] * EKG SCAN (08/01/2024 12:00 AM CDT) 08/01/2024 us Provider Scan IMG ECG ORDERABLES Final Result Performing Organization Address City/[facility] Co de Phone Number RESULTING AGENCY * CT - CHEST (07/22/2024 12:00 AM CDT) 07/22/2024 us Provider Scan IMG CT ORDERABLES Final Result Performing Organization Address [facility] de Phone Number SCAN * XR - LOWER EXTREMITY (07/10/2024 12:00 AM CDT) 07/10/2024 us Provider Scan IMG DIAGNOSTIC ORDERABLES Final Result Performing Organization Address [facility] Co de Phone Number SCAN * HEMOGLOBIN, A1C (10/02/2023 12:00 AM CDT) HGB-A1C 7.8 SCAN 10/02/2023 us Provider Scan CHEMISTRY ORDERABLES Final Resul t Performing Organization Address [facility] de Phone Number SCAN * PATHOLOGY CYTOLOGY [facility] JUSTICE (07/05/2022 2:24 PM CDT) SPECIMEN ADEQUACY A scant cellular component is noted. Scant cellularity is likely due to presence of lubricant. 07/08/2022 8:38 AM CDT [facility] DESCRIPTIVE DIAGNOSIS NEGATIVE FOR INTRAEPITHELIAL LESIONS OR MALIGNANCY. 07/08/2022 8:38 AM CDT [facility] at 0838 CDT OTHER FINDINGS Atrophic hormonal pattern. 07/08/2022 8:38 AM CDT [facility] Automated Examination This sample was not evaluated by the automated imaging and review system ([employer] System, [employer], [place], [place] due to technical and / or biologic factor(s). The case was screened, reviewed, and finalized by a per diem rn and / or pathologist. 07/08/2022 8:38 AM CDT [facility] Disclaimer The PAP smear is [...] unless clinically indicated. 07/08/2022 8:38 AM CDT [facility] Other CERVIX UTERI STRUCTURE / Unknown Non-Phlebotomy Collection / Unknown 07/05/2022 2:24 PM CDT 07/05/2022 2:24 PM CDT us Pili Elkins APRN, NETTA PATHOLOGY/CYTOLOGY O RDERABLES Final Result [facility] [address] [place] [address], * HUMAN PAPILLOMA VIRUS (HPV) (07/05/2022 2:24 PM CDT) HPV OTHER HIGH RISK TYPES, PCR NEGATIVE NEGATIVE 07/06/2022 2:37 PM CDT [facility] Comment: The following Other High [...] 16 NEGATIVE NEGATIVE 07/06/2022 2:37 PM CDT [facility] Comment: A negative high-risk HPV [...] 18 NEGATIVE NEGATIVE 07/06/2022 2:37 PM CDT [facility] Comment: A negative high-risk HPV [...] OR DIAGNOSTIC SCREENING 07/06/2022 2:37 PM CDT [facility] Other Non-Phlebotomy Collection / Unknown 07/05/2022 2:24 PM CDT 07/05/2022 2:24 PM CDT Narrative [facility] - 07/06/2022 2:37 PM CDT Performed by Real-Time Polymerase Chain Reaction (PCR) on the Ronnie Vinay 4800. This assay has been validated for use with post-aliquot samples from the [employer] processor. us Pili Elkins APRN, CNP LAB SEND OUTS Deann l Result [facility] [address] [place] [address], [facility] [address] [place] [address] * HM COLONOSCOPY (01/09/2020) us Genaro Jensen DO PROCEDURE/MINOR SURGICAL ORDERA BLES Final Result * AMB REFERRAL TO PODIATRY (08/13/2019) us Alvarez Mensah MD OUTPATIENT REFERRALS Final Res ult * POCT STOOL, OCCULT BLOOD, DIAGNOSTIC (09/07/2018 1:20 PM CDT) OCCULT BLOOD, STOOL Negative Negative, Other POC HEMOCULT CONTROL Principal Engineer Pass 09/07/2018 1:20 PM CDT us Pili Elkins APRN, YARD INSPECTOR POINT OF CARE TESTIN G (MANUAL) Final Result from Last 3 Months or Most Recently Relevant to Health Maintenance Insurance MEDICARE C [facility] Care Teams River Expedition Guide Relationship Specialty Start Date End Date Justen Gale MD #[address] [address] PCP - General Family Medicine 10/17/17 David Roberts APRN, YARD INSPECTOR #[address] [place] [address] Nurse Practitioner Advanced Practice Nurse 01/31/22 Annel Rod MD #[address] [address] Consulting Physician Endocrinology 07/01/22
--- OUTSIDE RECORDS SUMMARY | 2024-10-08 08:14 | XMS_ITS | Encounter Summary ---
Author Organization [facility] Address [address] [place] [address] Phone Care Team Providers Care Tower Climber Name Role Phone Justen Gale MD Primary Care Provider [phone] David Roberts APRN, RN MEDICAL SURGICAL Unavailable Annel Rod MD Unavailable Reason for Visit * Reason Onset Date Comments Sore Throat 09/02/2024 Encounter Details Date Type Department Care Team (Late st Contact Info) Description 09/02/2024 Nurse Triage [facility] Central Call Center [address] [place] [address] Justen Gale MD #[address] [address] Sore Throat Social History Tobacco Use Types Packs/Day Years Used Date Smoking Tobacco: Never Smokeless Tobacco: Never Alcohol Use Standard Drinks/Week Comments No 0 (1 standard drink = 0.6 oz pur e alcohol) [facility] Utilities Answer Date Recorded In the [...] Total Score - Questions 1-9 0 07/23 [facility] - Occupational [...] any time in the past [address] [facility] [place], were you homeless or living in a half-way (including now)? No 08/06/2024 Education Answer Date [...] Pharmacy, medications, and allergies reviewed. Discussed utilizing [employer] to: discuss if they would prefer a [employer] message or phone call response - See [...] Ulcers - Caller Reports Outcome: Transfer to manager fraud queue Reason: Caller denied all higher acuity questions The caller accepted this outcome. Caller Denied: * Struggling for each breath (severe trouble breathing) * Can't swallow saliva (drooling) documented in this encounter Plan of Treatment Upcoming Encounters Date Type Department Care Team (Late st Contact Info) Description 10/22/2024 11:15 AM CDT Office Visit [facility] - Endocrinology - [place] #2 [place] [address] Annel Rod MD #[address] [address] 11/13/2024 2:00 PM CDT Appointment [facility] Cardiology Services [address] [place] [address] Angelito Alegria, RN CASE MANAGEMENT, RN MEDICAL SURGICAL #2 [facility] [address] [place] [address] Discharge Disposition: Discharged to home or Selfcare documented as of this encounter Visit Diagnoses Not on filedocumented in this encounter Additional Health Concerns Assessment Noted Time PHQ-9 Depression Total Score: 0 08/02/19 25 1:09 PM CDT documented as of this encounter Care Teams Tower Climber Relationship Specialty Start Date End Date Justen Gale MD #[address] [address] PCP - General Family Medicine 10/17/17 David Roberts APRN, RN MEDICAL SURGICAL #2 [place] [address] Nurse Practitioner Advanced Practice Nurse 01/31/22 Annel Rod MD #[address] [address] Consulting Physician Endocrinology 07/01/22 documented as of this encounter
--- OUTSIDE RECORDS SUMMARY | 2024-10-08 08:14 | XMS_ITS | Encounter Summary ---
Author Organization [facility] Address [address] [place] [address] Phone Care Team Providers Care Hardware Engineer Name Role Phone Justen Gale MD Primary Care Provider David Roberts APRN, HEAD ANIMAL TRAINER Unavailable [phone] Annel Rod MD Unavailable Reason for Visit * Reason Comments Medication Refill Encounter Details Date Type Department Care Team (Late st Contact Info) Description 02/07/2023 Refill [facility] - Family Medicine [facility] #2 [place] [address] Catrina Quiñonez MD #2 [place] [address] Medication Refill Social History Tobacco Use Types [...] Office Visit Pili Elkins APRN, NETTA [facility] [place] Showing recent visits within [...] Visit [facility] - Endocrinology - [place] #2 [place] [address] Annel Rod MD #[address] [address] 11/13/2024 2:00 PM CDT Appointment [facility] Cardiology Services [address] [place] [address] Angelito Alegria, TRAINING SPECIALIST, HEAD ANIMAL TRAINER #[address] [address] Discharge Disposition: Discharged to home or Selfcare documented as of this encounter Visit Diagnoses Not on filedocumented in this encounter Additional Health Concerns Infection Onset Date Last Indicated Resolved Time COVID - 19 08/01/2024 08/01/2024 08/01/2024 3:20 PM CDT Assessment Noted Time PHQ-9 Depression Total Score: 8 01/18/20 2:24 PM CDT documented as of this encounter Care Teams Hardware Engineer Relationship Specialty Start Date End Date Justen Gale MD #[address] [address] PCP - General Family Medicine 10/17/17 David Roberts TRAINING SPECIALIST, HEAD ANIMAL TRAINER #2 [place] [address] Nurse Practitioner Advanced Practice Nurse 01/31/22 Annel Rod MD #[address] [address] Consulting Physician Endocrinology 07/01/22 documented as of this encounter
--- OUTSIDE RECORDS SUMMARY | 2024-10-08 08:14 | XMS_ITS | Clinical Summary ---
Author Organization [facility] Address [address] [place] [address] Phone Care Team Providers Care Golf Manager Name Role Phone Justen Gale MD Primary Care Provider [phone] Allergies Active Allergy Reactions Criticality Noted Date [...] - 6.0 % 09/29/2017 10:28 AM CDT [employer] [facility] EST. AVG GLUCOSE, A1C 186 mg/dL 09/29/2017 10:28 AM CDT [employer] [facility] Blood Venipuncture / Unknown 09/28/2017 8:41 PM CDT 09/28/2017 8:46 PM CDT Narrative [facility] - 09/29/2017 10:28 AM CDT HGB A1C INTERPRETATION NORMAL: <5.7% PRE-DIABETES: 5.7 - 6.4% DIABETES: 6.5% OR GREATER us Francisco Castaneda MD CHEMISTRY ORDERABLES Final Resul t [facility] [employer] [facility]# [id number] 5 [facility] [place] [address] * (ABNORMAL) LIPID PANEL (09/28/2017 8:41 PM CDT) CHOLESTEROL 174 <200 mg/dL 09/30/2017 2:45 AM CDT [facility] [employer] [facility] TRIGLYCERIDE 109 <150 mg/dL 09/30/2017 2:45 AM CDT [facility] [employer] [facility] HDL 45 40 - 59 mg/dL 09/30/2017 2:45 AM CDT [facility] [employer] [facility] LDL CALCULATED 107(H) <100 mg/dL 09/30/2017 2:45 AM CDT [facility] [employer] [facility] NON-HDL CHOLESTEROL 129 <130 mg/dL 09/30/2017 2:45 AM CDT [facility] [employer] [facility] Blood Venipuncture / Unknown 09/28/2017 8:41 PM CDT 09/28/2017 8:46 PM CDT Narrative [facility] - 09/30/2017 2:45 AM CDT [...] Castaneda MD CHEMISTRY ORDERABLES Final Resul t [facility] [employer] [facility] [id number] 5 [facility] [facility] [place] [address] from Last 3 Months or Most Recently Relevant to Health Maintenance Insurance Advance Directives For more information, please contact: [phone] * Full Code (Latest Code Status on File) Date Activated Date Inactivated Comments 09/29/2017 7:45 AM 09/30/2017 9:14 PM * Full Code Date Activated Date Inactivated Comments 09/29/2017 1:25 AM 09/29/2017 7:45 AM Care Teams Golf Manager Relationship Specialty Start Date End Date Justen Gale MD [address] [facility] [address] [place] [address] PCP - General Cardiovascular Disease 09/14/17
--- OUTSIDE RECORDS SUMMARY | 2024-10-08 08:14 | XMS_ITS | Encounter Summary ---
Author Organization [facility] Address [address] [place] [address] Phone Care Team Providers Care Piano Mechanic Apprentice Name Role Phone Justen Gale MD Primary Care Provider [phone] David Roberts APRN, MEDICAL LABORATORY TECHNICIAN Unavailable [phone] Annel Rod MD Unavailable Reason for Visit * Reason Comments Medication Refill Encounter Details Date Type Department Care Team (Late st Contact Info) Description 03/02/2023 Refill [facility] - Family [facility] #2 [place] [id number] Justen Gale MD #[address] [address] Medication Refill Social History Tobacco Use Types [...] Tamika Villarreal RN - 03/02/2023 8:51 AM PHOTOCOPY OPERATOR Medication failed the protocol, provider to [...] Dept 01/17/23 Office Visit Catrina Quiñonez MD [facility] 09/16/22 Office Visit Pili Elkins APRN, CNP [facility] 07/05/22 Office Visit Pili Elkins APRN, NETTA [facility] 05/02/22 Office Visit Justen Gale MD [facility] 03/03/22 Office Visit Pili Elkins APRN, NETTA [facility] Showing recent visits within past 365 days and meeting all other requirements Future Appointments No visits were found meeting these conditions. Showing future appointments within next 90 days and meeting all other requirements OCOPY OPERATOR documented in this encounter Plan of Treatment Upcoming Encounters Date Type Department Care Team (Late st Contact Info) Description 10/22/2024 11:15 AM CDT Office Visit [facility] - Endocrinology - [place] #2 [place] [address] Annel Rod MD #[address] [phone] 11/13/2024 2:00 PM CDT Appointment [facility] Cardiology Services [address] [place] [address] Angelito Alegria, CAREER DEVELOPMENT COORDINATOR/TEACHER, MEDICAL LABORATORY TECHNICIAN #[address] [address] Discharge Disposition: Discharged to home or Selfcare documented as of this encounter Visit Diagnoses Not on filedocumented in this encounter Additional Health Concerns Infection Onset Date Last Indicated Resolved Time COVID - 19 08/01/2024 08/01/2024 08/01/2024 3:20 PM CDT Assessment Noted Time PHQ-9 Depression Total Score: 8 01/18/20 2:24 PM CDT documented as of this encounter Care Teams Piano Mechanic Apprentice Relationship Specialty Start Date End Date Justen Gale MD #[address] [address] PCP - General Family Medicine 10/17/17 David Roberts APRN, MEDICAL LABORATORY TECHNICIAN #[address] [place] [address] Nurse Practitioner Advanced Practice Nurse 01/31/22 Annel Rod MD #[address] [address] Consulting Physician Endocrinology 07/01/22 documented as of this encounter
--- OUTSIDE RECORDS SUMMARY | 2024-10-08 08:14 | XMS_ITS | Encounter Summary ---
Author Organization [facility] Address [address] [place] [address] Phone Care Team Providers Care Stereoplotter Operator Name Role Phone Justen Gale MD Primary Care Provider [phone] David Roberts APRN, PIN CLEANER Unavailable Annel Rod MD Unavailable Reason for Visit * Reason Comments Medication Refill Encounter Details Date Type Department Care Team (Late st Contact Info) Description 07/12/2022 Refill [facility] - Family Medicine [facility] #2 [place] [address] Justen Gale MD #[address] [address] Medication Refill Social History Tobacco Use Types [...] 07/05/22 Office Visit Pili Elkins APRN, NETTA [facility] [place] 05/02/22 Office Visit Justen Gale MD [facility] 03/03/22 Office Visit Pili Elkins APRN, PIN CLEANER [facility] 01/03/22 Office Visit Dannielle Berg PAC [facility] [place] 12/07/21 Office Visit Pili Elkins APRN, NETTA [facility] 11/09/21 Office Visit Pili Elkins APRN, NETTA [facility] [place] 10/08/21 Office Visit Angelito Alegria APRN, NETTA [facility] [place] 08/30/21 Office Visit Justen Gale MD [...] - Endocrinology [facility] #2 [place] [address] Annel Rod MD #[address] [address] 11/13/2024 2:00 PM CDT [facility] 1 [place] [address] Angelito Alegria APRN, PIN CLEANER #[address] [address] Discharge Disposition: Discharged to home or Selfcare documented as of this encounter Visit Diagnoses Not on filedocumented in this encounter Additional Health Concerns Infection Onset Date Last Indicated Resolved Time COVID - 19 08/01/2024 08/01/2024 08/01/2024 3:20 PM CDT Assessment Noted Time PHQ-9 Depression Total Score: 0 07/21/19 3:00 PM CDT documented as of this encounter Care Teams Stereoplotter Operator Relationship Specialty Start Date End Date Justen Gale MD #[address] [address] PCP - General Family Medicine 10/17/17 David Roberts APRN, PIN CLEANER #2 [place] [address] Nurse Practitioner Advanced Practice Nurse 01/31/22 Annel Rod MD #[address] [address] Consulting Physician Endocrinology 07/01/22 documented as of this encounter
--- OUTSIDE RECORDS SUMMARY | 2024-10-08 08:14 | XMS_ITS | Encounter Summary ---
Author Organization [facility] Address [address] [place] [address] Care Team Providers Care Flumer Name Role Phone Justen Gale MD Primary Care Provider [phone] Encounter Details Date Type Department Care Team (Late st Contact Info) Description 08/14/2024 Results Follow-Up ER at [facility] [address] [place] [address] Josué Bernal, STEPH [address] [place] [address] Social History Tobacco Use Types Packs/Day [...] medical care, and heating? 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
--- OUTSIDE RECORDS SUMMARY | 2024-10-08 08:14 | XMS_ITS | Encounter Summary ---
Author Organization [facility] Address [address] [place] [address] Phone Care Team Providers Care Baggage Porter Name Role Phone Justen Gale MD Primary Care Provider David Roberts APRN, NET DEVELOPER SOFTWARE ENGINEER C Unavailable [phone] Annel Rod MD Unavailable Reason for Visit * Reason Comments Medication Refill Encounter Details Date Type Department Care Team (Late st Contact Info) Description 02/07/2023 Refill [facility] - Family Medicine [facility] #2 [place] [address] Pili Elkins APRN, NET DEVELOPER SOFTWARE ENGINEER C #[address] [address] Medication Refill Social History [...] [facility] #2 [place] [address] Annel Rod MD #2 [facility] [address] [place] [address] 11/13/2024 2:00 PM CDT Appointment [facility] Cardiology Services 1 [place] [address] Angelito Alegria APRN, NET DEVELOPER SOFTWARE ENGINEER C #2 [facility] [address] [place] [address] Discharge Disposition: Discharged to home or Selfcare documented as of this encounter Visit Diagnoses Diagnosis Essential hypertension Unspecified essential hypertension documented in this encounter Additional Health Concerns Infection Onset Date Last Indicated Resolved Time COVID - 19 08/01/2024 08/01/2024 08/01/2024 3:20 PM CDT Assessment Noted Time PHQ-9 Depression Total Score: 8 01/18/20 2:24 PM CDT documented as of this encounter Care Teams Baggage Porter Relationship Specialty Start Date End Date Justen Gale MD #2 [facility] [address] [place] [address] PCP - General Family Medicine 10/17/17 David Roberts APRN, NET DEVELOPER SOFTWARE ENGINEER C #2 [place] [address] Nurse Practitioner Advanced Practice Nurse 01/31/22 Annel Rod MD #2 [facility] [address] [place] [address] Consulting Physician Endocrinology 07/01/22 documented as of this encounter
--- OUTSIDE RECORDS SUMMARY | 2024-10-08 08:14 | XMS_ITS | Encounter Summary ---
Author Organization [facility] Address [address] [place] [address] Phone Care Team Providers Care Piccoloist Name Role Phone Justen Gale MD Primary Care Provider David Roberts APRN, HOSE MENDER Unavailable Annel Rod MD Unavailable Reason for Visit * Reason Comments Medication Refill Encounter Details Date Type Department Care Team (Late st Contact Info) Description 09/30/2023 Refill [facility] - Endocrinology - [place] #2 [place] [address] Annel Rod MD #[address] [address] Medication Refill Social History [...] [facility] - Endocrinology [facility] #2 [place] [address] Annel Rod MD #[address] [address] 11/13/2024 2:00 PM CDT [facility] 1 [place] [address] Angelito Alegria APRN, NETTA #[address] [address] Discharge Disposition: Discharged to home or Selfcare documented as of this encounter Visit Diagnoses Not on filedocumented in this encounter Additional Health Concerns Infection Onset Date Last Indicated Resolved Time COVID - 19 08/01/2024 08/01/2024 08/01/2024 3:20 PM CDT Assessment Noted Time PHQ-9 Depression Total Score: 8 01/18/20 2:24 PM CDT documented as of this encounter Care Teams Piccoloist Relationship Specialty Start Date End Date Justen Gale MD #[address] [place] [address] PCP - General Family Medicine 10/17/17 David Roberts APRN, HOSE MENDER #2 [place] [address] Nurse Practitioner Advanced Practice Nurse 01/31/22 Annel Rod MD #[address] [address] Consulting Physician Endocrinology 07/01/22 documented as of this encounter
--- OUTSIDE RECORDS SUMMARY | 2024-10-08 08:14 | XMS_ITS | Encounter Summary ---
Author Organization [facility] Address [address] [place] [address] Phone Care Team Providers Care Forest Pathology Professor Name Role Phone Justen Gale MD Primary Care Provider [phone] David Roberts APRN, ORE TRIMMER Unavailable Annel Rod MD Unavailable Reason for Visit * Reason Comments Medication Refill Encounter Details Date Type Department Care Team (Late st Contact Info) Description 10/24/2022 Refill [facility] - Family Medicine [facility] #2 [place] [address] Pili Elkins APRN, ORE TRIMMER #[address] [address] Medication Refill Social History [...] Endocrinology [facility] #2 [place] [address] Annel Rod MD #[address] [address] 11/13/2024 2:00 PM CDT [facility] 1 [place] [address] Angelito Alegria, PERSONNEL CLERKS SUPERVISOR, ORE TRIMMER #2 [facility] [address] [place] [address] Discharge Disposition: Discharged to home or Selfcare documented as of this encounter Visit Diagnoses Diagnosis Essential hypertension Unspecified essential hypertension documented in this encounter Additional Health Concerns Infection Onset Date Last Indicated Resolved Time COVID - 19 08/01/2024 08/01/2024 08/01/2024 3:20 PM CDT Assessment Noted Time PHQ-9 Depression Total Score: 0 09/17/19 11:00 AM CDT documented as of this encounter Care Teams Forest Pathology Professor Relationship Specialty Start Date End Date Justen Gale MD #[address] [address] PCP - General Family Medicine 10/17/17 David Roberts PERSONNEL CLERKS SUPERVISOR, ORE TRIMMER #2 [place] [address] Nurse Practitioner Advanced Practice Nurse 01/31/22 Annel Rod MD #[address] [address] Consulting Physician Endocrinology 07/01/22 documented as of this encounter
--- OUTSIDE RECORDS SUMMARY | 2024-10-08 08:14 | XMS_ITS | Encounter Summary ---
Author Organization [facility] Address [address] [place] [address] Phone Care Team Providers Care Box Car Loader Name Role Phone Justen Gale MD Primary Care Provider [phone] David Roberts APRN, MANAGER BANKING Unavailable Annel Rod MD Unavailable Reason for Visit * Reason Onset Date Comments Pain 09/23/2024 Encounter Details Date Type Department Care Team (Late st Contact Info) Description 09/23/2024 Telephone [facility] [address] [place] [address] Justen aGle MD #[address] [address] Pain Social History Tobacco Use Types Packs/Day Years Used Date Smoking Tobacco: Never Smokeless Tobacco: Never Alcohol Use Standard Drinks/Week Comments No 0 (1 standard drink = 0.6 oz pur e alcohol) [facility] Utilities Answer Date Recorded In the past 12 months has [employer] electric, gas, oil, or water company threatened [...] How often do you attend chur or catholic services? More than 4 times per year 08/06/2024 Do you belong to any clubs o r organizations such as religious groups, unions, fraternal or athletic groups, or [...] - patient has RA Outcome: Transfer to emergency vehicle technician queue Reason: Caller denied all higher acuity questions The caller accepted this outcome. Caller Denied: * Chest pain * Headache * Eye pain * Abdominal pain * Genital pain documented in this encounter Plan of Treatment Upcoming Encounters Date Type Department Care Team (Late st Contact Info) Description 10/22/2024 11:15 AM CDT Office Visit [facility] - Endocrinology [facility] #2 [place] [address] Annel Rod MD #2 [facility] [address] [place] [address] 11/13/2024 2:00 PM CDT [facility] 1 [place] [address] Angelito Alegria APRN, MANAGER BANKING #2 [facility] [address] [place] [address] Discharge Disposition: Discharged to home or Selfcare documented as of this encounter Visit Diagnoses Not on filedocumented in this encounter Additional Health Concerns Assessment Noted Time PHQ-9 Depression Total Score: 0 08/02/19 25 1:09 PM CDT documented as of this encounter Care Teams Box Car Loader Relationship Specialty Start Date End Date Jsuten Gale MD #2 [facility] [address] [place] [address] PCP - General Family Medicine 10/17/17 David Roberts APRN, MANAGER BANKING #2 [place] [address] Nurse Practitioner Advanced Practice Nurse 01/31/22 Annel Rod MD #2 [facility] [address] [place] [address] Consulting Physician Endocrinology 07/01/22 documented as of this encounter
--- OUTSIDE RECORDS SUMMARY | 2024-10-08 08:14 | XMS_ITS | Encounter Summary ---
Author Organization [facility] Address [address] [place] [address] Phone Care Team Providers Care Laborer Pullet Farm Name Role Phone Justen Gale MD Primary Care Provider [phone] Daivd Roberts APRN, PARACHUTE CROWN SEWER Unavailable [phone] Annel Rod MD Unavailable Reason for Visit * Reason Onset Date Comments Breathing Problem 08/07/2024 Muscle Pain 08/07/2024 Encounter Details Date Type Department Care Team (Late st Contact Info) Description 08/07/2024 Nurse Triage [facility] [address] [place] [address] Justen Gale MD #[address] [address] Breathing Problem; Muscle Pain Social History Tobacco Use Types Packs/Day Years Used Date Smoking Tobacco: Never Smokeless Tobacco: Never Alcohol Use Standard Drinks/Week Comments No 0 (1 standard drink = 0.6 oz pur e alcohol) [facility] Utilities Answer Date Recorded [...] often do you attend chur ch or druze services? More than 4 times per year [...] Total Score - Questions 1-9 0 07/23 [facility] - Occupational [...] any time in the past 12 m [facility], were you homeless or living in [...] She reports this was discussed with the assistant front end manager and provider was to be notified in [...] Encouraged caller to bring cell phone and drum puller to contact EMS 911 if symptoms [...] (e.g., disoriented, slurred speech) Protocols used: Breathing Ucdndwzoev-B-HY * Telephone Encounter - Neha Tomlinson - [...] Visit [facility] - Endocr[facility]ology - [place] #[address] [place] [address] Annel Rod MD #2 [facility] [address] [place] [address] 11/13/2024 2:00 PM CDT [facility] [address] [place] [address] Angelito Alegria, EYEGLASS LENS GRINDER, PARACHUTE CROWN SEWER #2 [facility] [address] [place] [address] Discharge Disposition: Discharged to home or Selfcare documented as of this encounter Visit Diagnoses Not on filedocumented in this encounter Additional Health Concerns Assessment Noted Time PHQ-9 Depression Total Score: 0 08/02/19 25 1:09 PM CDT documented as of this encounter Care Teams Laborer Pullet Farm Relationship Specialty Start Date End Date Justen Gale MD #2 [facility] [address] [place] [address] PCP - General Family Medicine 10/17/17 David Roberts APRN, PARACHUTE CROWN SEWER #2 [place] [address] Nurse Practitioner Advanced Practice Nurse 01/31/22 Annel Rod MD #2 [facility] [address] [place] [phone] Consulting Physician Endocrinology 07/01/22 documented as of this encounter
--- OUTSIDE RECORDS SUMMARY | 2024-10-08 08:14 | XMS_ITS | Encounter Summary ---
Author Organization [facility] Address [address] [place] [address] Phone Care Team Providers Care Patient Assistant Name Role Phone Justen Gale MD Primary Care Provider David Roberts APRN, BRACELET AND BROOCH MAKER Unavailable [phone] Annel Rod MD Unavailable Reason for Visit * Reason Comments Medication Refill Encounter Details Date Type Department Care Team (Late st Contact Info) Description 03/05/2023 Refill [facility] - [facility] Medicine [facility] #2 [place] [address] Pili Elkins APRN, BRACELET AND BROOCH MAKER #[address] [address] Medication Refill Social History Tobacco [...] discontinued on 10/19/2022 by Justen Gale MD SUPPORT OPERATIONS OPERATOR documented in this encounter Plan of Treatment Upcoming Encounters Date Type Department Care Team (Late st Contact Info) Description 10/22/2024 11:15 AM CDT Office Visit [facility] End[facility]ology - [place] #2 [place] [address] Annel Rod MD #2 [facility] [address] [place] [address] 11/13/2024 2:00 PM CDT [facility] [address] [place] [address] Angelito Alegria APRN, BRACELET AND BROOCH MAKER #2 [facility] [address] [place] [address] Discharge Disposition: Discharged to home or Selfcare documented as of this encounter Visit Diagnoses Diagnosis Essential hypertension Unspecified essential hypertension documented in this encounter Additional Health Concerns Infection Onset Date Last Indicated Resolved Time COVID - 19 08/01/2024 08/01/2024 08/01/2024 3:20 PM CDT Assessment Noted Time PHQ-9 Depression Total Score: 8 01/18/20 2:24 PM CDT documented as of this encounter Care Teams Patient Assistant Relationship Specialty Start Date End Date Justen Gale MD #2 [facility] [address] [place] [address] PCP - General Family Medicine 10/17/17 David Roberts APRN, NETTA #2 [place] [address] Nurse Practitioner Advanced Practice Nurse 01/31/22 Annel Rod MD #2 [facility] [address] [place] [phone] Consulting Physician Endocrinology 07/01/22 documented as of this encounter
--- OUTSIDE RECORDS SUMMARY | 2024-10-08 08:15 | XMS_ITS | Encounter Summary ---
Author Organization [facility] Address [address] [place] [address] Phone Care Team Providers Care Pharmacy Clinical Coordinator Name Role Phone Justen Gale MD Primary Care Provider [phone] David Roberts APRN, [employer] DEAN Unavailable Annel Rod MD Unavailable Reason for Visit * Reason Onset Date Comments Abdominal Pain 10/08/2024 Encounter Details Date Type Department Care Team (Late st Contact Info) Description 10/08/2024 Nurse Triage [facility] [address] [place] [address] Justen Gale MD #[address] [address] Abdominal Pain Social History Tobacco Use Types Packs/Day Years Used Date Smoking Tobacco: Never Smokeless Tobacco: Never Alcohol Use Standard Drinks/Week Comments No 0 (1 standard drink = 0.6 oz pur e alcohol) [facility] Utilities Answer Date Recorded In the past 12 months has [employer] electric, gas, oil, or water company threatened [...] How often do you attend chur or christianity services? More than 4 times per year [...] Score - Questions 1-9 0 07/23 [facility] - Occupational Stress Questionnaire Answer Date Recorded [...] any time in the past 12 m [facility], were you homeless or living in [...] Miscellaneous Notes * Telephone Encounter - Shanthi Baires, RN - 10/08/2024 7:17 AM CDT SITUATION: patient calling BACKGROUND: regarding contacting PCP office. Per chart review, ed visit [facility] ASSESSMENT: Symptom Description / Location: Redness around belly button, redness is spreading. Abdomen is tender and swollen around belly button. Patient was seen in the ed on 10/03/24 at [facility]. Given clindamycin but she did not pick it up/start it. Patient wasn't happy with her experience at [facility]. Patient is diabeticand gives herself insulin in abdomen. Pain: 3/10 at rest. Can be 6 or 7/10 with movement Fever: Denies fever. Treatment / Response: none No reported treatment. RECOMMENDATION: Dispositions for Encounter:Go to ED Now (or PCP Triage). Reason for Disposition: MILD TO MODERATE constant pain lasting > 2 hours . Protocols Used: Abdominal Pain - Female-A-OH patient will go. Discussed utilizing [employer] to: send messages to providers - See care advice and disposition for [...] Visit [facility] - [place] #2 [place] [address] Annel Rod MD #[address] [address] 11/13/2024 2:00 PM CDT [facility] [address] [place] [address] Angelito Alegria APRN, [employer] DEAN #[address] [address] Discharge Disposition: Discharged to home or Selfcare documented as of this encounter Visit Diagnoses Not on filedocumented in this encounter Additional Health Concerns Assessment Noted Time PHQ-9 Depression Total Score: 0 08/02/19 25 1:09 PM CDT documented as of this encounter Care Teams Pharmacy Clinical Coordinator Relationship Specialty Start Date End Date Justen Gale MD #[address] [address] PCP - General Family Medicine 10/17/17 David Roberts APRN, NETTA #[address] [place] [address] Nurse Practitioner Advanced Practice Nurse 01/31/22 Annel Rod MD #[address] [place] [address] [address] Consulting Physician Endocrinology 07/01/22 documented as of this encounter
--- OUTSIDE RECORDS SUMMARY | 2024-10-08 08:15 | XMS_ITS | Encounter Summary ---
Author Organization [facility] Address [address] [place] [address] Phone Care Team Providers Care Paint Preparer Name Role Phone Justen Gale MD Primary Care Provider [phone] David Roberts APRN, ROD BENDING MACHINE OPERATOR Unavailable [phone] Annel Rod MD Unavailable Reason for Visit * Reason Onset Date Comments Advice Only 11/21/2023 Encounter Details Date Type Department Care Team (Late st Contact Info) Description 11/21/2023 Telephone [facility] [address] [place] [address] Justen Gale MD #[address] [address] Advice Only Social History Tobacco Use Types [...] 11/21/2023 3:17 PM CDT RFC: Alejandra from [facility] is calling to state that patient [...] Visit [facility] End[facility] - [place] #2 [place] [address] Annel Rod MD #2 [facility] [address] [place] [address] 11/13/2024 2:00 PM CDT [facility] [address] [place] [address] Angelito Alegria APRN, ROD BENDING MACHINE OPERATOR #2 [facility] [address] [place] [address] Discharge Disposition: Discharged to home or Selfcare documented as of this encounter Visit Diagnoses Not on filedocumented in this encounter Additional Health Concerns Infection Onset Date Last Indicated Resolved Time COVID - 19 08/01/2024 08/01/2024 08/01/2024 3:20 PM CDT Assessment Noted Time PHQ-9 Depression Total Score: 8 01/18/20 2:24 PM CDT documented as of this encounter Care Teams Paint Preparer Relationship Specialty Start Date End Date Justen Gale MD #2 [facility] [address] [place] [address] PCP - General Family Medicine 10/17/17 David Roberts APRN, NETTA #2 [place] [address] Nurse Practitioner Advanced Practice Nurse 01/31/22 Annel Rod MD #2 [facility] [address] [place] [phone] Consulting Physician Endocrinology 07/01/22 documented as of this encounter
--- NOTE | 2024-10-08 09:31 | ED.SKABFB ---
HPI - Skin/Abscess/Foreign Bdy General Chief complaint: Skin/Abscess/Foreign Body Stated complaint: rash to abd Time Seen by Provider: 10/08/24 08:58 Source: patient Mode of arrival: ambulatory Limitations: no limitations History of Present Illness HPI narrative: Patient is a 69 y/o female, with IDDM, hypothyroidism, obesity, PE and DVT on Xarelto, with report of redness to abdomen. Patient reports she first noticed redness to R of umbilicus on Monday. Was seen in the ED here and Rx'd clindamycin for possible cellulitis. States she has not been able to keep down medication due to nausea and vomiting. States today, she noticed that the redness has extended across her entire lower abdomen. She states it is very painful and tender to the touch. She states her blood sugars have been elevated, but she has also been on steroids due to recent diagnosis of polymyositis. Denies fevers. Patient does inject her insulin into her abdomen. Related Data Home Medications ?Medication ?Instructions ?Recorded ?Confirmed ?Last Taken ?Type exemestane 25 mg tablet 25 mg PO HS 01/06/20 06/20/24 12/04/23 22:00 History insulin glargine 100 unit/mL (3 32 unit subcut QAM 01/06/20 06/20/24 12/04/23 11:00 History mL) subcutaneous pen (Lantus Solostar U-100 Insulin) ropinirole 5 mg tablet 5 mg PO HS 01/06/20 06/20/24 12/04/23 22:00 History insulin lispro 100 unit/mL 28 unit subcut TID 03/19/22 06/20/24 Unknown History subcutaneous pen (Humalog KwikPen (U-100) Insulin) oxybutynin chloride 15 mg 15 mg PO DAILY 11/06/22 06/20/24 12/04/23 11:00 History tablet,extended release 24 hr gabapentin 300 mg capsule 300 mg PO TID 06/25/23 06/20/24 12/04/23 22:00 History Allergies Allergy/AdvReac Type Severity Reaction Status Date / Time ceftriaxone Allergy Severe SOB Verified 10/08/24 08:23 cephalexin Allergy Severe Difficulty Verified 10/08/24 08:23 Breathing Cephalosporins Allergy Severe Difficulty Verified 10/08/24 08:23 Breathing lorazepam Allergy Severe Swelling Verified 10/08/24 08:23 trazodone Allergy Severe Swelling Verified 10/08/24 08:23 of Lip/Tongue/Throat metoclopramide Allergy Intermediate Other Verified 10/08/24 08:23 chlorhexidine Allergy Mild BLISTERING Verified 10/08/24 08:23 levofloxacin Allergy Mild Hives / Verified 10/08/24 08:23 Red Face ketorolac Allergy Itching Verified 10/08/24 08:23 latex Allergy Rash Verified 10/08/24 08:23 meropenem Allergy Rash Verified 10/08/24 08:23 nitrofurantoin Allergy Itching Verified 10/08/24 08:23 sulfamethoxazole (From Allergy Itching Verified 10/08/24 08:23 Sulfamethoxazole-Trimethoprim) trimethoprim (From Allergy Itching Verified 10/08/24 08:23 Sulfamethoxazole-Trimethoprim) clindamycin AdvReac Intermediate Nausea and Verified 10/08/24 08:24 Vomiting oxycodone AdvReac Mild Vomiting Verified 10/08/24 08:23 amlodipine AdvReac Swelling Verified 10/08/24 08:23 lisinopril AdvReac Swelling Verified 10/08/24 08:23 pregabalin AdvReac Swelling Verified 10/08/24 08:23 reslizumab AdvReac Unknown Verified 10/08/24 08:23 Review of Systems Review of Systems: All systems reviewed & are unremarkable except as noted in HPI. All systems reviewed & are unremarkable except as noted in HPI and below PMFSH Past Medical History Medical History Gastroparesis Obstructive sleep apnea on CPAP Restless leg syndrome Pulmonary embolism positive for coagulation workup Deep venous thrombosis Type 2 diabetes mellitus Throat pain in adult Oral ulcer Chronic anticoagulation Overactive bladder Irritable bowel syndrome Congestive heart failure Chronic back pain COVID-19 Collagenous colitis Morbid obesity Breast cancer Depression Anxiety Peripheral neuropathy Kidney stone Multiple thyroid nodules Surgical History Surgical History History of umbilical hernia repair History of colonoscopy Status post insertion of spinal cord stimulator History of cystoscopy History of ureter stent History of cholecystectomy History of bilateral mastectomy History of esophagogastroduodenoscopy (EGD) History of right oophorectomy History of total right knee replacement History of cardiac catheterization Reportedly negative for coronary artery disease. Family History Family History Mother Diabetes mellitus Acute myocardial infarction Cerebrovascular accident Hypertension Congestive heart failure Father Prostate carcinoma Sibling Breast cancer Acute myocardial infarction Chronic obstructive pulmonary disease Social History Social History Social History: Surrogate medical decision maker: Jimmie Marques, spouse. Code status: Full code. Smoking packs per day: 0 Smoking cigarettes per day: 0.0 Years smoked: 2 Smoking pack-years: 0.00 Smoking status: Former smoker Second hand tobacco smoke exposure: Yes Alcohol intake: never Substance use: never Substance use type: does not use Do You Feel Safe in your Home?: Yes Lack of Transportation: No Lack of Food: Never True Current Housing: I Have Housing Concerned About Future Housing: No Difficulty Paying Gas/Electric Bills: No Difficulty Paying for Meds: No Currently Unemployed: No Education: Decline to Answer Difficulty w/ Childcare or Family Care: No Living arrangements: with family Additional occupation/education comments: Disabled. Spiritual care concerns: No Exam Narrative: GENERAL: Chronically ill-appearing, morbidly obese with BMI of 53.6, non-toxic, in no acute distress. HEAD: Normocephalic, atraumatic. RESPIRATORY: Airway patent, respirations nonlabored. Clear to auscultation bilaterally, no rales, rhonchi, wheezing. CARDIOVASCULAR: Regular rate and rhythm without murmurs, rubs, or gallops. ABDOMINAL: Soft, nondistended. Normoactive BS. Diffuse erythema and bruising across anterior lower abdominal wall. Warmth to the touch. Focal tenderness to palpation diffusely throughout abdomen. No obvious fluctuance or abscess formation. MUSCULOSKELETAL: Moves all extremities. No gross deformities. SKIN: Warm, dry, normal color. NEURO: A&O X3. Speech clear. Cranial nerves II-XII grossly intact. Steady gait. No ataxic movements. PSYCHIATRIC: Appropriate mood and affect. Normal interaction. Course Vital Signs Vital signs: Vital Signs Temperature 98.5 F 10/08/24 08:13 Pulse Rate 88 10/08/24 08:13 Respiratory Rate 18 10/08/24 08:13 Blood Pressure 133/64 10/08/24 08:13 Pulse Oximetry 95 10/08/24 08:13 Oxygen Delivery Room Air 10/08/24 08:13 Temperature 98.5 F 10/08/24 08:13 Pulse Rate 81 10/08/24 12:30 Respiratory Rate 18 10/08/24 12:30 Blood Pressure 141/90 H 10/08/24 12:30 Pulse Oximetry 97 10/08/24 12:30 Oxygen Delivery Room Air 10/08/24 08:13 MDM - Skin/Abscess/Foreign Bdy MDM Narrative Medical decision making narrative: Patient presented to ED with report of redness to abdominal wall. Was diagnosed with possible cellulitis 2 days ago, prescribed clindamycin, but patient has been unable to tolerate this due to nausea and vomiting. Reporting worsening redness spreading across her abdomen. Vital signs are stable upon arrival. Patient is afebrile here. Cbc with blood cell count of 13.2. H&H is stable. CMP without significant abnormalities. Stable kidney function. Blood sugar 236. No evidence of DKA. Inflammatory markers are elevated. CT abd/pelvis consistent with abdominal wall cellulitis, no abscess. No other intra-abdominal abnormalities noted. Given that patient is unable to tolerate p.o. antibiotics, will admit for IV antibiotics. Blood cultures obtained. Discussed case with Isamar Huddleston PHYSIOLOGY TEACHER hospitalist, accepted patient for admission. Agrees w/ plan for vancomycin. Patient in agreement with plan and need for admission. Medical Records Attestation: I reviewed the patient's medical records. Lab Data Attestation: I reviewed the patient's lab results. 10/08/24 09:48 10/08/24 09:48 Labs: Lab Results 10/08/24 Range/Units 09:48 WBC 13.2 H (4.5-10.0) K/mm3 RBC 4.03 L (4.2-5.4) M/mm3 Hgb 11.7 L (12.0-15.0) g/dL Hct 37.9 (37.0-47.0) % MCV 94.0 (80-100) fl MCH 29.0 (26-34) pg MCHC 30.9 L (32-36) g/dl RDW 13.8 (11.5-14.5) % Plt Count 227 (150-375) k/mm3 MPV 9.4 (7.4-10.4) fl Immature Gran % (Auto) 0.6 H (0-0.5) % Neut % (Auto) 71.1 (45.5-73.1) % Lymph % (Auto) 19.8 (18.3-44.2) % [place] % (Auto) 7.4 (2.6-8.5) % Eos % (Auto) 0.8 (0-4.4) % Baso % (Auto) 0.3 (0.2-1.2) % Lymph # (Auto) 2.61 (0.9-3.2) K/mm3 [place] # (Auto) 1.0 H (0.1-0.6) K/mm3 Eos # (Auto) 0.1 (0-0.3) K/mm3 Baso # (Auto) 0.0 (0.0-0.1) K/mm3 Abs Immat Gran (auto) 0.08 H (0.00-0.031) K/mm3 Absolute Neuts (auto) 9.4 H (1.3-6.7) K/mm3 Absolute Nucleated RBC 0.000 (0.0-0.012) K/mm3 Nucleated RBC % 0.0 (0.0-0.2) % ESR 48 H (0-20) mm/hr PT 15.2 H (11.1-14.7) Seconds INR 1.2 APTT 32.1 (22.3-36.8) Seconds Sodium 136 L (137-145) mmol/L Potassium 3.8 (3.4-5.0) mmol/L Chloride 104 (98-107) mmol/L Carbon Dioxide 27 (22-30) mmol/L Anion Gap 5 (4-12) mmol/L BUN 19 H (7-17) mg/dL Creatinine 0.66 L (0.7-1.0) mg/dL Estim Creat Clear Calc 88 ml/min Estimated GFR > 60 (59 - ) Glucose 236 H (65-110) mg/dL Calcium 9.2 (8.4-10.2) mg/dL Total Bilirubin 0.8 (0.2-1.3) mg/dL AST 23 (14-36) U/L ALT 26 (6-35) U/L Alkaline Phosphatase 62 (38-126) U/L C-Reactive Protein 8.2 H (<1.0) mg/dL Total Protein 7.1 (6.3-8.2) g/dL Albumin 3.5 (3.5-5.1) g/dL Imaging Data Attestation: I personally reviewed and interpreted this imaging study as follows: Radiologist's impression: ITS Impressions Abdomen/Pelvis CT 10/08/24 10:55 IMPRESSION: 1. Likely improving cellulitis along the umbilicus and surrounding pannus. No abscess. 2. No acute intra-abdominal/pelvic process. Discharge Plan Discharge Clinical Impression: Cellulitis of abdominal wall Uncontrolled diabetes mellitus Qualifiers: Diabetes mellitus type: type 2 Glycemic state: with hyperglycemia Qualified Code(s): E11.65 - Type 2 diabetes mellitus with hyperglycemia Patient Disposition: Still a Patient Condition: Stable Patient Language: Wolof Prescriptions: No Action gabapentin 300 mg capsule 300 mg PO TID omeprazole 40 mg capsule,delayed release(DR/EC) 40 mg PO DAILY 30 Days Qty: 30 2RF clobetasol 0.05 % gel 1 applic topical DAILY 14 Days Qty: 15 0RF Rx Instructions: to be pplied in the right cheek avoid eating or drinking for 30 minutes after application mupirocin [Centany] 2 % ointment 1 applic topical BID 30 Days Qty: 15 0RF exemestane 25 mg tablet 25 mg PO HS ropinirole 5 mg tablet 5 mg PO HS insulin glargine [Lantus Solostar U-100 Insulin] 100 unit/mL (3 mL) insulin pen 32 unit SUBCUT QAM insulin lispro [Humalog KwikPen Insulin] 100 unit/mL insulin pen 28 unit SUBCUT TID albuterol sulfate 90 mcg/actuation HFA aerosol inhaler 1 inh inhalation QID PRN (Reason: shortness of breath or wheezing) Qty: 6.7 0RF oxybutynin chloride 15 mg tablet extended release 24hr 15 mg PO DAILY Xarelto 20 mg tablet 20 mg PO 1700 Qty: 30 0RF hydrocodone-acetaminophen 10-325 mg tablet 1 tablet PO Q6H PRN (Reason: pain (scale score 7-10)) Qty: 10 0RF ondansetron 4 mg tablet,disintegrating 4 mg PO Q8H PRN (Reason: nausea and vomiting) Qty: 10 0RF clindamycin HCl [Cleocin HCl] 300 mg capsule 300 mg PO BID Qty: 14 0RF lidocaine 5 % ointment 1 applic topical TID PRN (Reason: skin irritation) Qty: 50 0RF Follow-up/Referrals: Shahla,Justen Spicer MD [Primary Care Provider] -
--- OUTSIDE RECORDS SUMMARY | 2024-10-08 09:49 | XMS_ITS | Encounter Summary ---
Author Organization [facility] Address [address] [place] [address] Phone Care Team Providers Care Chore Worker Name Role Phone Justen Gale MD Primary Care Provider David Roberts APRN, CALL OR CONTACT CENTRE OPERATOR Unavailable Annel Rod MD Unavailable Reason for Visit * Reason Onset Date Comments Breathing Problem 08/07/2024 Muscle Pain 08/07/2024 Encounter Details Date Type Department Care Team (Late st Contact Info) Description 08/07/2024 Nurse Triage [facility] [address] [place] [address] Justen Gale MD #[address] [address] Breathing Problem; Muscle Pain Social History Tobacco Use Types Packs/Day Years Used Date Smoking Tobacco: Never Smokeless Tobacco: Never Alcohol Use Standard Drinks/Week Comments No 0 (1 standard drink = 0.6 oz pur e alcohol) [facility] Utilities Answer Date Recorded In [...] Total Score - Questions 1-9 0 07/23 [facility] - Occupational Stress [...] any time in the past 12 m [facility], were you homeless or living [...] She reports this was discussed with the vest front presser and provider was to be notified in [...] Encouraged caller to bring cell phone and warehouse order puller to contact EMS 911 if symptoms [...] (e.g., disoriented, slurred speech) Protocols used: Breathing [id number] * Telephone Encounter - Neha Tomlinson - [...] Visit [facility] - [facility]ocr[facility]ology - [place] #2 [place] [address] Annel Rod MD #2 [facility] [address] [place] [address] 11/13/2024 2:00 PM CDT [facility]ment [facility] [address] [place] [address] Angelito Alegria, SEAFOOD FARMER, CALL OR CONTACT CENTRE OPERATOR #2 [facility] [address] [place] [address] Discharge Disposition: Discharged to home or Selfcare documented as of this encounter Visit Diagnoses Not on filedocumented in this encounter Additional Health Concerns Assessment Noted Time PHQ-9 Depression Total Score: 0 08/02/19 25 1:09 PM CDT documented as of this encounter Care Teams Chore Worker Relationship Specialty Start Date End Date Justen Gale MD #2 [facility] [address] [place] [address] PCP - General Family Medicine 10/17/17 David Roberts APRN, CALL OR CONTACT CENTRE OPERATOR #2 [place] [address] Nurse Practitioner Advanced Practice Nurse 01/31/22 Annel Rod MD #2 [facility] [address] [place] [phone] Consulting Physician Endocrinology 07/01/22 documented as of this encounter
--- OUTSIDE RECORDS SUMMARY | 2024-10-08 09:49 | XMS_ITS | Encounter Summary ---
Author Organization [facility] Address [address] [place] [address] Phone Care Team Providers Care Research Physician Name Role Phone Justen Gale MD Primary Care Provider David Roberts APRN, LOCUM TENENS Unavailable Annel Rod MD Unavailable Encounter Details Date Type Department Care Team (Late st Contact Info) Description 06/05/2020 [facility] 1 [place] [address] Pili Elkins APRN, LOCUM TENENS #[address] [address] Frequency of micturition Social History [...] COVID-19? No / Unsure 2020 11:37 AM STICKER OPERATOR documented as of this encounter Plan of Treatment Upcoming Encounters Date Type Department Care Team (Late st Contact Info) Description 10/22/2024 11:15 AM CDT Office Visit [facility] - [facility] - [place] #2 [place] [address] Annel Rod MD #2 [facility] [address] [place] [address] 11/13/2024 2:00 PM CDT [facility] 1 [place] [address] Angelito Alegria, ZAMZAM, LOCUM TENENS #2 [facility] [address] [place] [address] Discharge Disposition: Discharged to home or Selfcare documented as of this encounter Procedures Procedure Name Priority Date/Time Associated Diagnosis Comments URINALYSIS REFLEX IF INDICATED BY ABNORMAL RESULTS Routine 06/05/2020 4:45 PM STICKER OPERATOR Frequency of micturition documented in this encounter Results * (ABNORMAL) URINALYSIS REFLEX IF INDICATED BY ABNORMAL RESULTS (06/05/2020 4:45 PM STICKER OPERATOR) SPECIFIC GRAVITY 1.020 1.003 - 1.030 06/05/2020 5:19 PM STICKER OPERATOR [facility] URINE PH 5.0 5.0 - 9.0 06/05/2020 5:19 PM STICKER OPERATOR [facility] WBC ESTERASE Negative Negative 06/05/2020 5:19 PM STICKER OPERATOR [facility] NITRITE Negative Negative 06/05/2020 5:19 PM STICKER OPERATOR [facility] PROTEIN, RANDOM URINE Negative Negative 06/05/2020 5:19 PM STICKER OPERATOR [facility] URINE GLUCOSE, QUAL Negative Negative 06/05/2020 5:19 PM STICKER OPERATOR [facility] URINE KETONES Negative Negative 06/05/2020 5:19 PM STICKER OPERATOR [facility] UROBILINOGEN Normal Normal mg/dL 06/05/2020 5:19 PM STICKER OPERATOR [facility] URINE BILIRUBIN Negative Negative 5:19 PM STICKER OPERATOR [facility] URINE BLOOD 25 /uL(A) Negative leandro/ul 06/05/2020 5:19 PM STICKER OPERATOR [facility] URINALYSIS COLOR Yellow 06/05/19 5:19 PM STICKER OPERATOR [facility] URINALYSIS CLARITY Clear 06/05/2020 5:19 PM STICKER OPERATOR [facility] WBC (Urine) 0-5 Negative, 0-5 /hpf 06/05/2020 5:19 PM STICKER OPERATOR [facility] URINE RBC'S 3-5(A) Negative, 0-2 /hpf 06/05/2020 5:19 PM STICKER OPERATOR [facility] EPITHELIAL CELLS Small amount /lpf 2020 5:19 PM STICKER OPERATOR [facility] BACTERIA, URINE Few(A) Negative /hpf 06/05/2020 5:19 PM STICKER OPERATOR [facility] Urine URINE SPECIMEN / Unknown Non-Phlebotomy Collection / Unknown 06/05/2020 4:45 PM STICKER OPERATOR 06/05/2020 5:00 PM STICKER OPERATOR us Pili Elkins GREASE REFINING SUPERVISOR, LOCUM TENENS URINE ORDERABLES Fin al Result [facility] #1 [place] [address] documented in this encounter Visit Diagnoses Diagnosis Frequency of micturition Urinary frequency documented in this encounter Additional Health Concerns Infection Onset Date Last Indicated Resolved Time COVID - 19 08/01/2024 08/01/2024 08/01/2024 3:20 PM CDT Assessment Noted Time PHQ-9 Depression Total Score: 0 09/08/19 19 1:00 PM CDT documented as of this encounter Care Teams Research Physician Relationship Specialty Start Date End Date Justen Gale MD #2 [facility] [address] [place] [address] PCP - General Family Medicine 10/17/17 David Roberts, GREASE REFINING SUPERVISOR, LOCUM TENENS #2 [place] [address] Nurse Practitioner Advanced Practice Nurse 01/31/22 Annel Rod MD #2 [facility] [address] [place] [address] Consulting Physician Endocrinology 07/01/22 documented as of this encounter
--- OUTSIDE RECORDS SUMMARY | 2024-10-08 09:49 | XMS_ITS | Encounter Summary ---
Author Organization [facility] Address [address] [place] [address] Phone Care Team Providers Care Social Worker Assistant Name Role Phone Justen Gale MD Primary Care Provider David Roberts APRN, SHEET ROCK NAILER Unavailable Annel Rod MD Unavailable Reason for Visit * Reason Onset Date Comments Sore Throat 09/02/2024 Encounter Details Date Type Department Care Team (Late st Contact Info) Description 09/02/2024 Nurse Triage [facility] Central Call Center [address] [place] [address] Justen Gale MD #[address] [address] Sore Throat Social History Tobacco Use Types [...] do you attend chur or episcopalian services? More than 4 times per year [...] Total Score - Questions 1-9 0 07/23 [facility]at [facility] - Occupational [...] any time in the past 12 m [facility], were you homeless or [...] Pharmacy, medications, and allergies reviewed. Discussed utilizing [employer] to: discuss if they would prefer a [employer] message or phone call response - See [...] Ulcers - Caller Reports Outcome: Transfer to steel layer queue Reason: Caller denied all higher acuity questions The caller accepted this outcome. Caller Denied: * Struggling for each breath (severe trouble breathing) * Can't swallow saliva (drooling) documented in this encounter Plan of Treatment Upcoming Encounters Date Type Department Care Team (Late st Contact Info) Description 10/22/2024 11:15 AM CDT Office [facility] - [facility] - [place] #2 [place] [address] Annel Rod MD #[address] [address] 11/13/2024 2:00 PM CDT Appointment [facility]iology Services [address] [place] [address] Angelito Alegria, SHREDDING MACHINE TENDER, SHEET ROCK NAILER #2 [facility] [address] [place] [address] Discharge Disposition: Discharged to home or Selfcare documented as of this encounter Visit Diagnoses Not on filedocumented in this encounter Additional Health Concerns Assessment Noted Time PHQ-9 Depression Total Score: 0 08/02/19 25 1:09 PM CDT documented as of this encounter Care Teams Social Worker Assistant Relationship Specialty Start Date End Date Justen Gale MD #[address] [address] PCP - General Family Medicine 10/17/17 David Roberts APRN, SHEET ROCK NAILER #2 [place] [address] Nurse Practitioner Advanced Practice Nurse 01/31/22 Annel Rod MD #[address] [address] Consulting Physician Endocrinology 07/01/22 documented as of this encounter
--- OUTSIDE RECORDS SUMMARY | 2024-10-08 09:49 | XMS_ITS | Encounter Summary ---
Author Organization [facility] Address [address] [place] [address] Phone Care Team Providers Care Machine Chocolate Molder Name Role Phone Justen Gale MD Primary Care Provider David Roberts APRN, MECHANICAL EXPERT Unavailable [phone] Annel Rod MD Unavailable Reason for Visit * Reason Comments Medication Refill Encounter Details Date Type Department Care Team (Late st Contact Info) Description 08/30/2022 Refill [facility] - Family Medicine [facility] #2 [place] [address] Justen Gale MD #[address] [address] Medication Refill Social History Tobacco Use Types [...] [place] 05/02/22 Office Visit [facility] [place] 03/03/22 Office Visit Pili Elkins APRN, NETTA [facility] [place] 01/03/22 Office Visit Dannielle Berg PAC [facility] [place] 12/07/21 Office Visit Pili Elkins APRN, NETTA [facility] [place] 11/09/21 Office Visit Pili Elkins APRN, NETTA [facility] [place] 10/08/21 Office Visit Angelito Alegria APRN, NETTA [facility] [place] 08/30/21 [facility] Show[facility] recent visits within past 365 days [...] Visit [facility] - [facility] - [place] #2 [place] [address] Annel Rod MD #[address] [address] 11/13/2024 2:00 PM CDT Appointment [facility]iology Services 1 [place] [address] Angelito Alegria, EDUCATION PROGRAM MANAGER, MECHANICAL EXPERT #[address] [address] Discharge Disposition: Discharged to home or Selfcare documented as of this encounter Visit Diagnoses Not on filedocumented in this encounter Additional Health Concerns Infection Onset Date Last Indicated Resolved Time COVID - 19 08/01/2024 08/01/2024 08/01/2024 3:20 PM CDT Assessment Noted Time PHQ-9 Depression Total Score: 0 07/21/19 3:00 PM CDT documented as of this encounter Care Teams Machine Chocolate Molder Relationship Specialty Start Date End Date Justen Gale MD #[address] [address] PCP - General Family Medicine 10/17/17 David Roberts, EDUCATION PROGRAM MANAGER, MECHANICAL EXPERT #2 [place] [address] Nurse Practitioner Advanced Practice Nurse 01/31/22 Annel Rod MD #[address] [address] Consulting Physician Endocrinology 07/01/22 documented as of this encounter
--- OUTSIDE RECORDS SUMMARY | 2024-10-08 09:49 | XMS_ITS | Encounter Summary ---
Author Organization [facility] Address [address] [place] [address] Phone Care Team Providers Care Gluer And Slicer Hand Name Role Phone Justen Gale MD Primary Care Provider David Roberts APRN, NET MAKING SUPERVISOR Unavailable Annel Rod MD Unavailable Reason for Visit * Reason Comments Medication Refill Encounter Details Date Type Department Care Team (Late st Contact Info) Description 02/07/2023 Refill [facility] - Family Medicine [facility] #2 [place] [address] Catrina Quiñonez MD #2 [place] [address] Medication Refill Social History Tobacco Use Types [...] 03/03/22 Office Visit Pili Elkins APRN, NETTA [facility] [place] Showing recent visits within past 365 [...] Visit [facility] - Endocrinology - [place] #2 [place] [address] Annel Rod MD #[address] [address] 11/13/2024 2:00 PM CDT Appointment [facility] Cardiology Services [address] [place] [address] Angelito Alegria, PEDIATRIC LICENSED PRACTICAL NURSE, NET MAKING SUPERVISOR #[address] [address] Discharge Disposition: Discharged to home or Selfcare documented as of this encounter Visit Diagnoses Not on filedocumented in this encounter Additional Health Concerns Infection Onset Date Last Indicated Resolved Time COVID - 19 08/01/2024 08/01/2024 08/01/2024 3:20 PM CDT Assessment Noted Time PHQ-9 Depression Total Score: 8 01/18/20 2:24 PM CDT documented as of this encounter Care Teams Gluer And Slicer Hand Relationship Specialty Start Date End Date Justen Gale MD #[address] [address] PCP - General Family Medicine 10/17/17 Davdi Roberts PEDIATRIC LICENSED PRACTICAL NURSE, NET MAKING SUPERVISOR #2 [place] [address] Nurse Practitioner Advanced Practice Nurse 01/31/22 Annel Rod MD #[address] [address] Consulting Physician Endocrinology 07/01/22 documented as of this encounter
--- OUTSIDE RECORDS SUMMARY | 2024-10-08 09:49 | XMS_ITS | Clinical Summary ---
Author Organization [facility] Address [address] [place] [address] Care Team Providers Care Lap Grinder Name Role Phone Justen Gale MD Primary Care Provider [phone] Source Comments [facility],non[facility] Affiliates and Associated Physician Practices is amultiple site organization consisting of ambulatory clinics and hospital sitesin [place], [place], [place] and [place]. This disclosure is being madepursuant to the Care Everywhere program and may not contain all information available regarding this patient. Last updated 18.[facility] [employer] Allergies Active Allergy Reactions Criticality Noted Date [...] Team Description 08/14/2024 Results [place] [address] Josué Bernal PA-C 08/13/2024 Telephone ER at [facility] [address] [place] [address] Jordana Abdul MD ER UC Follow-up 08/09/2024 6:46 PM CDT - 08/09/2024 9:35 PM CDT Emergency ER at [address] [id number] Yasmin Matthew DO Shortness of breath; Strep [...] medical care, and heating? Somewhat hard 05/16/2023 [facility] [place] [facility] Occupat ional Health - Occupational [...] in a fci (including now)? No 05/16/2023 Comments No Sex and Gender Information Value Date Recorded Sex Assigned at Not on file Legal Sex Female 6:53 PM [employer] WORK[employer] Gender Identity Not on file Sexual [...] this topic Medical Devices Implanted Type Area Emergency Registrar Device Identifier Shelf Expiration Date Model / Serial / Lot Lead Nrstm 60cm Penta 3mm Pdl 16 Chnl Implanted:Qt y: 1 on 09/16/2021 by Maxi Gregg MD at [facility] Right: Spine Thoracic [employer] [id number] / / Description:CAMILO Slnt Dura Duraseal Pg Trilysine Amine 5 Implanted:Qt y: 1 on 09/16/2021 by Maxi Gregg MD at [facility] Right: Spine Thoracic Inte[employer] David [id number] / / Description:CAMILO Proclaim Plus 5 Implanted:Qt y: 1 on 02/16/2023 by Maxi Gregg MD at [facility] Left: Back Cardenas Spine [id number] 11/07/2024 3670 / [id number] / Explanted Type Area Emergency Registrar Device Identifier Shelf Expiration Date Model / Serial / Lot Gntr Nrstm [id number] Proclaim Elt Implanted:Qty: 1 on 09/16/2021 by Maxi Gregg MD at [facility] Explanted:Qty: 1 on 10/30/2021 by Maxi Gregg MD at [facility] Right: Spine Thoracic St [...] 08/09/2024 8:46 PM CDT [facility] Specific [place] UA 1.014 1.005 - 1.030 08/09/2024 8:46 [...] 5 # /hpf 08/09/2024 8:46 PM CDT [facility] Bacteria UA Trace(A) None Seen 08/09/2024 8:46 PM CDT [facility] Squamous Epithelial Cells None Seen 0 - 5 /hpf 08/09/2024 8:46 PM CDT [facility] Mucus UA 1+ /LPF 08/09/2024 8:46 PM CDT [facility] Urine URINE SPECIMEN OBTAINED BY CLEAN CATCH PROCEDURE / Unknown 08/09/2024 8:39 PM CDT 08/09/2024 8:39 PM CDT Narrative [facility] - 08/09/2024 8:46 PM CDT Yasmin Matthew DO LAB - URINALYSIS ORDERABLES Final Result Performing Organization Address City/State/[facility] Co de Phone Number [facility] [address] [place] [address] * (ABNORMAL) CULTURE URINE (08/09/2024 8:39 PM CDT) [facility] Culture Urine 50,000-100,000 CFU/mL Escherichia coli(A) TERRANCE 08/12/2024 4:04 AM CDT [facility] Culture Urine 10,000-50,000 CFU/mL urogenital evelio TERRANCE 08/12/2024 4:04 AM CDT [facility] Urine URINE SPECIMEN OBTAINED BY CLEAN CATCH PROCEDURE / Unknown 08/09/2024 8:39 PM CDT 08/09/2024 8:39 PM CDT Narrative [facility] - 08/12/2024 4:04 AM CDT [...] LAB - MICROBIOLOGY ORDERABLE S Final Result [facility] [address] [facility] [place], [place] [address], [facility] [phone] * SARS-COV-2 (COVID-19) FLU A/B RSV PCR RAPID (08/09/2024 7:40 PM CDT) [facility] COVID-19 PCR Not detected Not detected 08/10/19 8:24 PM CDT [facility] Influenza A PCR Not detected Not detected 08/09/2024 8:24 PM CDT [facility] Influenza B PCR Not detected Not detected 08/09/2024 8:24 PM CDT [facility] RSV PCR Not detected Not detected 08/09/2024 8:24 PM CDT [facility] Microbiology SPECIMEN FROM NASOPHARYNGEAL STRUCTURE / Unknown Collection / Unknown 08/09/2024 7:40 PM CDT 08/09/2024 7:40 PM CDT Narrative [facility] - 08/09/2024 8:24 PM CDT [...] ORDERABLE S Final Result Performing Organization Address [facility] Co de Phone Number [facility] [address] [place] [phone] * (ABNORMAL) STREP A SCREEN DIRECT W RFLX STREP A CULTURE (08/09/2024 7:40 PM CDT) [facility] Strep A Rapid Positive(A ) Negative 08/09/2024 7:53 PM CDT [facility] Microbiology ENTIRE THROAT (SURFACE REGION OF NECK) / Unknown Collection / Unknown 08/09/2024 7:40 PM CDT 08/09/2024 7:40 PM CDT Yasmin Vipul LAB - MICROBIOLOGY ORDERABLE S Final Result Performing Organization Address [facility] de Phone Number [facility] [address] [place] [address] * EKG 12-LEAD (08/09/2024 7:06 PM CDT) Ventricular Rate 86 BPM [facility] Atrial Rate 86 BPM [facility] P-R Interval 122 ms [facility] QRS Duration ms 86 ms [facility] Q-T Interval ms 370 ms [facility] QTC Calculation (Bezet) 442 ms [facility] Calculated R [place] 8 degrees [facility] Calculated T [place] 51 degrees [facility] Interpretation EKG NORMAL SINUS RHYTHM WITH SINUS ARRHYTHMIA SEPTAL INFARCT , AGE UNDETERMINED ABNORMAL ECG WHEN COMPARED WITH ECG OF 09-AUG-2024 13:34, SINUS RHYTHM HAS REPLACED ECTOPIC ATRIAL RHYTHM SEPTAL INFARCT IS NOW PRESENT Confirmed by Gil Perrin MD ([id number]) on 08/10/2024 9:03:52 AM [facility] 08/09/2024 7:06 PM CDT 08/10/2024 9:03 AM CDT Josué Bernal PA-C ECG ORDERABLES Edited Re sult - Final Performing Organization Address City/[facility]/ZIP Co de Phone Number [facility] * TROPONIN-I HIGH SENSITIVE REFLEX 1HOUR (08/09/2024 3:29 PM CDT) [facility] Troponin I High Sensitive 5 <=14 ng/L 08/09/2024 4:50 PM CDT [facility] Delta Troponin I HS 08/09/2024 4:50 PM CDT [facility] Comment:Delta value intentio yissel not calculated. Baseline to 1 hour specimen collection interval exceeded. Blood BLOOD SPECIMEN / Unknown Venipuncture / Unknown 08/09/2024 3:29 PM CDT 08/09/2024 3:33 PM CDT Josué Bernal PA-C LAB - CHEMISTRY ORDERABLE S Final Result Performing Organization Address [facility] Co de Phone Number [facility] [address] [place] [address] * XR CHEST 2VW (08/09/2024 1:59 PM [...] BASELINE + 1HR (08/09/2024 1:40 PM CDT) [facility] Troponin I High Sensitive 6 <=14 ng/L 08/09/2024 2:14 PM CDT [facility] Blood BLOOD SPECIMEN / Unknown Venipuncture / Unknown 08/09/2024 1:40 PM CDT 08/09/2024 1:43 PM CDT Josué Bernal PA-C LAB - CHEMISTRY ORDERABLE S Final Result [facility] [address] [place] [address] * (ABNORMAL) CBC W AUTO DIFFERENTIAL (08/09/2024 1:40 PM CDT) [facility] WBC 15.6(H) 4.0 - 10.7 x10E9/L 08/09/2024 1:47 PM CDT [facility] RBC Count 4.44 3.90 - 5.20 x10E12/L 08/09/2024 1:47 PM CDT [facility] Hemoglobin 13.0 11.9 - 15.8 g/dL 08/09/2024 1:47 PM CDT [facility] Hematocrit 40.4 34.8 - 46.1 % 08/09/2024 1:47 PM CDT [facility] MCV 91.0 80.0 - 98.0 fL 08/09/2024 1:47 PM CDT [facility] MCH 29.3 26.7 - 33.6 pg 08/09/2024 1:47 PM CDT [facility] MCHC 32.2 31.7 - 36.3 g/dL 08/09/2024 1:47 PM CDT [facility] RDW-CV 13.0 11.3 - 14.8 % 08/09/2024 1:47 PM CDT [facility] Platelet Count 249 150 - 420 x10E9/L 08/09/2024 1:47 PM CDT [facility] MPV 9.6 7.8 - 11.4 fL 08/09/2024 1:47 PM CDT [facility] Neutrophil % 72.7 41.0 - 74.0 % 08/09/2024 1:47 PM CDT [facility] Lymphocyte % 18.0 17.0 - 47.0 % 08/09/2024 1:47 PM CDT [facility] Monocyte % 7.5 3.0 - 11.0 % 08/09/2024 1:47 PM CDT [facility] Eosinophil % 1.2 0.0 - 7.0 % 08/09/2024 1:47 PM CDT [facility] Basophil % 0.2 0.0 - 1.6 % 08/09/2024 1:47 PM CDT [facility] Immature Granulocytes % 0.4 0.0 - 1.0 % 08/09/2024 1:47 PM CDT [facility] Neutrophil Absolute 11.35(H) 1.60 - 7.50 x10E9/L 08/09/2024 1:47 PM CDT [facility] Lymphocyte Absolute 2.82 1.00 - 4.40 x10E9/L 08/09/2024 1:47 PM CDT [facility] Monocyte Absolute 1.18(H) 0.15 - 1.00 x10E9/L 08/09/2024 1:47 PM CDT [facility] Eosinophil Absolute 0.19 0.00 - 0.60 x10E9/L 08/09/2024 1:47 PM CDT [facility] Basophil Absolute 0.03 0.00 - 0.13 x10E9/L 08/09/2024 1:47 PM CDT [facility] Blood BLOOD SPECIMEN / Unknown Venipuncture / Unknown 08/09/2024 1:40 PM CDT 08/09/2024 1:43 PM CDT Josué MCKEON-C LAB - HEMATOLOGY ORDERABL ES Final Result Performing Organization Address [facility] Co de Phone Number [facility] [address] [place] [phone] * B-TYPE NATRIURETIC PEPTIDE (08/09/2024 1:40 PM CDT) BNP 29 <=100 pg/mL 08/09/2024 2:11 PM CDT [facility] Blood BLOOD SPECIMEN / Unknown Venipuncture / Unknown 08/09/2024 1:40 PM CDT 08/09/2024 1:43 PM CDT Narrative [facility] - 08/09/2024 2:11 PM CDT [...] ORDERABLE S Final Result Performing Organization Address [facility] Co de Phone Number [facility] [address] [place] [address] * (ABNORMAL) COMPREHENSIVE METABOLIC PANEL (08/09/2024 1:40 PM CDT) [facility] Glucose 212(H) 70 - 99 mg/dL 08/09/2024 2:09 PM CDT [facility] Sodium 136 136 - 145 mmol/L 08/09/2024 2:09 PM CDT [facility] Potassium 3.9 3.5 - 5.1 mmol/L 08/09/2024 2:09 PM CDT [facility] Chloride 103 98 - 107 mmol/L 08/09/2024 2:09 PM CDT [facility] CO2 24 22 - 29 mmol/L 08/09/2024 2:09 PM T [facility] Calcium 9.4 8.4 - 10.4 mg/dL 08/09/2024 2:09 PM [facility] Anion Gap 9 6 - 16 mmol/L 08/09/2024 2:09 PM T [facility] BUN 19 7 - 26 mg/dL 08/09/2024 2:09 PM T [facility] Creatinine 0.82 0.57 - 1.11 mg/dL 08/09/2024 2:09 PM [facility] Alkaline Phosphatase 68 40 - 150 U/L 08/09/2024 2:09 PM CDT [facility] ALT 22 6 - 57 U/L 08/09/2024 2:09 PM T [facility] AST 23 10 - 48 U/L 08/09/2024 2:09 PM [facility] Protein Total 8.0 6.4 - 8.3 gm/dL 08/09/2024 2:09 PM T [facility] Albumin 3.3(L) 3.4 - 5.0 gm/dL 08/09/2024 2:09 PM [facility] Bilirubin Total 0.9 0.2 - 1.2 mg/dL 08/09/2024 2:09 PM [facility] eGFR by CKD-EPI 78(L) >=90 mL/min/1.7 3 m2 08/09/2024 2:09 PM [facility] Blood BLOOD SPECIMEN / Unknown Venipuncture / Unknown 08/09/2024 1:40 PM CDT 08/09/2024 1:43 PM CDT Josué MCKEON-Ana Laura LAB - CHEMISTRY ORDERABLE S Final Result Performing Organization Address [facility] de Phone Number [facility] [address] [place], [place] [phone] * (ABNORMAL) MAGNESIUM BLOOD (08/09/2024 1:40 PM CDT) Pathologist [facility] Magnesium 1.5(L) 1.6 - 2.6 mg/dL 08/09/2024 2:09 PM CDT [facility] Blood BLOOD SPECIMEN / Unknown Venipuncture / Unknown 08/09/2024 1:40 PM CDT 08/09/2024 1:43 PM CDT Josué MCKEON-C LAB - CHEMISTRY ORDERABLE S Final Result Performing Organization Address [facility] de Phone Number [facility] [address] [place] [address] * CK BLOOD (08/09/2024 1:40 PM CDT) [facility] CK 107 29 - 168 U/L 08/09/2024 7:44 PM CDT [facility] Blood BLOOD SPECIMEN / Unknown Venipuncture / Unknown 08/09/2024 1:40 PM CDT 08/09/2024 1:43 PM CDT Yasmin Matthew DO LAB - CHEMISTRY ORDERABLES F inal Result Performing Organization Address [facility] Co de Phone Number [facility] [address] [place] [phone] * HEPATITIS C AB SCREEN RFLX NAAT QUANT (02/21/2023 6:30 PM CDT) [facility] Hepatitis C Antibody Non-react hugh Non-reac tive 02/21/2023 7:32 PM CDT [facility] Comment:Hepatitis C Antibody [...] ORDERABLES Fi nal Result Performing Organization Address City/[facility]/ZIP Co de Phone Number [facility] [address] [place] [address], [place] [phone] * (ABNORMAL) HEMOGLOBIN A1C (12/25/2022 3:56 AM CDT) Hemoglobin A1c 8.6(H) <=5.6 % 12/25/2022 2:47 PM CDT [facility] Estimated Average Glucose 200 mg/dL 12/25/2022 2:47 PM CDT [facility] Comment: HbA1c Interpretation: Normal : < 5.7% Pre-diabetes: 5.7-6.4% Diabetes: Equal to or greater than 6.5% Test results diagnostic of diabetes should be repeated for confirmation. Treatment target values recommended by ADA and other clinical organizations should be used to evaluate metabolic control in patients. Reference: [place] [employer], Standards of Care in Diabetes [...] LAB - CHEMISTRY ORDERA BLES Final Result [facility] [address] [place] [address], [place] [phone] from Last 3 Months or Most Recently [...] 3:37 AM 03/23/2023 7:14 PM Care Teams Lap Grinder Relationship Specialty Start Date End Date Justen Gale MD PCP - General 07/05/21
--- OUTSIDE RECORDS SUMMARY | 2024-10-08 09:49 | XMS_ITS | Encounter Summary ---
Author Organization [facility] Address [address] [place] [address] Phone Care Team Providers Care Conservation Specialist Name Role Phone Justen Gale MD Primary Care Provider David Roberts APRN, MEDICINE AIDE Unavailable Annel Rod MD Unavailable Reason for Visit * Reason Comments Medication Refill Encounter Details Date Type Department Care Team (Late st Contact Info) Description 09/30/2023 Refill [facility] - [place] [address] [place] [address] Annel Rod MD #[address] [address] Medication Refill Social History Tobacco [...] Description 10/22/2024 11:15 AM CDT Office Visit [facility] - Endocrinology [facility] #[address] [place] [address] Annel Rod MD #[address] [address] 11/13/2024 2:00 PM CDT Appointment [facility] [address] [place] [address] Angelito Alegria APRN, NETTA #[address] [address] Discharge Disposition: Discharged to home or Selfcare documented as of this encounter Visit Diagnoses Not on filedocumented in this encounter Additional Health Concerns Infection Onset Date Last Indicated Resolved Time COVID - 19 08/01/2024 08/01/2024 08/01/2024 3:20 PM CDT Assessment Noted Time PHQ-9 Depression Total Score: 8 01/18/20 2:24 PM CDT documented as of this encounter Care Teams Conservation Specialist Relationship Specialty Start Date End Date Justen Gale MD #[address] [place] [address] PCP - General Family Medicine 10/17/17 David Roberts APRN, MEDICINE AIDE [address] [place] [address] Nurse Practitioner Advanced Practice Nurse 01/31/22 Annel Rod MD #[address] [address] Consulting Physician Endocrinology 07/01/22 documented as of this encounter
--- OUTSIDE RECORDS SUMMARY | 2024-10-08 09:49 | XMS_ITS | Encounter Summary ---
Author Organization [facility] Address [address] [place] [address] Phone Care Team Providers Care Smash Fixer Name Role Phone Justen Gale MD Primary Care Provider David Roberts APRN, ACTIVITIES THERAPIST Unavailable [phone] Annel Rod MD Unavailable Reason for Visit * Reason Onset Date Comments Pain 09/23/2024 Encounter Details Date Type Department Care Team (Late st Contact Info) Description 09/23/2024 Telephone [facility] [address] [place] [address] Justen Gale MD #[address] [address] Pain Social History Tobacco Use Types Packs/Day Years Used Date Smoking Tobacco: Never Smokeless Tobacco: Never Alcohol Use Standard Drinks/Week Comments No 0 (1 standard drink = 0.6 oz pur e alcohol) [facility] Utilities Answer Date Recorded In the past 12 months has [employer] electric, gas, oil, or water company threatened [...] How often do you attend chur or jain services? More than 4 times per year [...] Total Score - Questions 1-9 0 07/23 [facility] - [...] - patient has RA Outcome: Transfer to stepdown nurse queue Reason: Caller denied all higher [...] - Endocrinology [facility] #[address] [place] [address] Annel Rod MD #2 [facility] [address] [place] [address] 11/13/2024 2:00 PM CDT [facility]ment [facility] [address] [place] [address] Angelito Alegria APRN, ACTIVITIES THERAPIST #2 [facility] [address] [place] [address] Discharge Disposition: Discharged to home or Selfcare documented as of this encounter Visit Diagnoses Not on filedocumented in this encounter Additional Health Concerns Assessment Noted Time PHQ-9 Depression Total Score: 0 08/02/19 25 1:09 PM CDT documented as of this encounter Care Teams Smash Fixer Relationship Specialty Start Date End Date Justen Gale MD #2 [facility] [address] [place] [address] PCP - General Family Medicine 10/17/17 David Roberts APRN, ACTIVITIES THERAPIST #[address] [place] [address] Nurse Practitioner Advanced Practice Nurse 01/31/22 Annel Rod MD #2 [facility] [address] [place] [address] Consulting Physician Endocrinology 07/01/22 documented as of this encounter
--- OUTSIDE RECORDS SUMMARY | 2024-10-08 09:49 | XMS_ITS | CONTINUITY OF CARE DOCUMENT ---
Author Name ayesha, ayesha Address Unknown Organization [facility] Address [address] [place] [address] Phone [phone] Care Team Providers Care Chemotherapist Name Role Phone Yamilet DURÁN, Maico Unavailable ALANIS DURÁN, BRIDGETT Unavailable [phone] ALLISON DURÁN, CLARISSE Unavailable PROBLEMS Condition Status Date Provider Notes Shortness of breath active Ivory Rodriguez Palpitations active Radha Seals INSURANCE PROVIDERS Payer name Policy type / Coverage type [employer] red constitution party ID UHC MEDICARE COMPLETE HMO Other [id number] [facility] Medicaid 2 [id number] HISTORY OF PROCEDURES Procedure Date Procedure Name Provider Procedure Notes S tatus Stress EKG Carmine Silverio MD complet ed Regadenoson, 4 units Sergey Saldana MD completed Cardiolite, 2 units Sergey Saldana MD completed SPECT Images Carmine Silverio MD compl eted Holter, 24 or 48 Maico Woodard MD co mpleted
--- OUTSIDE RECORDS SUMMARY | 2024-10-08 09:49 | XMS_ITS | Encounter Summary ---
Author Organization [facility] Address [address] [place] [address] Phone Care Team Providers Care Dental Office Assistant Name Role Phone Justen Gale MD Primary Care Provider David Roberts APRN, COMMODITY MANAGEMENT SPECIALIST Unavailable Annel Rod MD Unavailable Reason for Visit * Reason Comments Medication Refill Encounter Details Date Type Department Care Team (Late st Contact Info) Description 02/07/2020 Refill [facility] [address] [place] [address] Justen Gale MD #[address] [address] Medication Refill Social History Tobacco Use Types [...] Visit [facility] - [place] #[address] [place] [address] Annel Rod MD #[address] [address] 11/13/2024 2:00 PM CDT [facility]ment [facility] [address] [place] [address] Angelito Alegria APRN, COMMODITY MANAGEMENT SPECIALIST #2 [facility] [address] [place] [address] Discharge Disposition: Discharged to home or Selfcare documented as of this encounter Visit Diagnoses Not on filedocumented in this encounter Additional Health Concerns Infection Onset Date Last Indicated Resolved Time COVID - 19 08/01/2024 08/01/2024 08/01/2024 3:20 PM CDT Assessment Noted Time PHQ-9 Depression Total Score: 0 09/08/19 1:00 PM CDT documented as of this encounter Care Teams Dental Office Assistant Relationship Specialty Start Date End Date Justen Gale MD #[address] [address] PCP - General Family Medicine 10/17/17 David Roberts APRN, NETTA #[address] [facility] [place] [address] Nurse Practitioner Advanced Practice Nurse 01/31/22 Annel Rod MD #[address] [address] Consulting Physician Endocrinology 07/01/22 documented as of this encounter
--- OUTSIDE RECORDS SUMMARY | 2024-10-08 09:49 | XMS_ITS | Encounter Summary ---
Author Organization [facility] Address [address] [place] [address] Phone Care Team Providers Care Geomorphology Teacher Name Role Phone Justen Gale MD Primary Care Provider David Roberts APRN, CHECK INSPECTOR Unavailable Annel Rod MD Unavailable Reason for Visit * Reason Onset Date Comments Sore Throat 06/29/2020 Encounter Details Date Type Department Care Team (Late st Contact Info) Description 06/29/2020 Telephone [facility] [place] [address] Justen Gale MD #[address] [address] Sore Throat Social History Tobacco Use Types [...] COVID-19? No / Unsure 06/29/2020 8:43 AM ACCOUNTS PAYABLES CLERK documented as of this encounter Miscellaneous Notes * Telephone Encounter - Gail Lucero RN - 06/29/2020 3:53 PM CST Attempted to call mailbox is full. Pt does not need testing UNTS PAYABLES CLERK * Telephone Encounter - Vince Hermosillo MD - 06/29/2020 3:13 PM CST No covid testing needed. If the er thought that it was warranted then they would have done this. UNTS PAYABLES CLERK * Telephone Encounter - Marlys Sorensen RN - 06/29/2020 8:36 AM CST Patient calling. Patient is calling to schedule Hospital/ED/Prompt-Care follow up appointment. Hospital/ED/[facility] Site: [facility] ED Records Requested: Yes Reason for [...] f/up and yearly PAP appointments? Please advise. UNTS PAYABLES CLERK documented in this encounter Plan of Treatment Upcoming Encounters Date Type Department Care Team (Late st Contact Info) Description 10/22/2024 11:15 AM CDT Office Visit [facility] - Endocrinology - [place] #2 [place] [address] Annel Rod MD #2 [facility] [address] [place] [address] 11/13/2024 2:00 PM CDT [facility] 1 [place] [address] Angelito Alegria, GEOCHEMIST, CHECK INSPECTOR #2 [facility] [address] [place] [address] Discharge Disposition: Discharged to home or Selfcare documented as of this encounter Visit Diagnoses Not on filedocumented in this encounter Additional Health Concerns Infection Onset Date Last Indicated Resolved Time COVID - 19 08/01/2024 08/01/2024 08/01/2024 3:20 PM CDT Assessment Noted Time PHQ-9 Depression Total Score: 0 09/08/19 19 1:00 PM CDT documented as of this encounter Care Teams Geomorphology Teacher Relationship Specialty Start Date End Date Justen Gale MD #2 [facility] [address] [place] [address] PCP - General Family Medicine 10/17/17 David Roberts APRN, CHECK INSPECTOR #2 [place] [address] Nurse Practitioner Advanced Practice Nurse 01/31/22 Annel Rod MD #2 [facility] [address] [place] [address] Consulting Physician Endocrinology 07/01/22 documented as of this encounter
--- OUTSIDE RECORDS SUMMARY | 2024-10-08 09:49 | XMS_ITS | Encounter Summary ---
Author Organization [facility] Address [address] [place] [address] Phone Care Team Providers Care Sales And Management Trainee Name Role Phone Justen Gale MD Primary Care Provider David Roberts APRN, SHOTGUN SHELL ASSEMBLY MACHINE OPERATOR Unavailable [phone] Annel Rod MD Unavailable Reason for Visit * Reason Onset Date Comments Advice Only 08/19/2024 Follow-up 08/19/2024 Encounter Details Date Type Department Care Team (Late st Contact Info) Description 08/19/2024 Telephone [facility] - [facility] #2 [place] [address] Justen Gale MD #[address] [address] Advice Only; Follow-up Social History Tobacco Use [...] Total Score - Questions 1-9 0 07/23 [facility] - Occupational Stress Questionnaire Answer Date [...] any time in the past 12 m [facility], were you homeless or [...] visit * Telephone Encounter - Angelito Alegria, POULTICE MACHINE OPERATOR, SHOTGUN SHELL ASSEMBLY MACHINE OPERATOR - 08/19/2024 9:04 AM CDT Forwarding * Telephone Encounter - Isaura Weiss RN - 08/19/2024 8:37 AM CDT Situation: Strep throat follow up Background: Patient contacting PCP office. Patient was seen in ED on 08/09 and 08/12 in [place] (records in chart). Diagnosed with strep. Assessment: [...] CDT Symptom: Sore Throat Outcome: Transfer to hazardous substances engineer queue Reason: Caller denied all higher acuity questions The caller accepted this outcome. Caller Denied: * Struggling for each breath (severe trouble breathing) * Can't swallow saliva (drooling) documented in this encounter Plan of Treatment Upcoming Encounters Date Type Department Care Team (Late st Contact Info) Description 10/22/2024 11:15 AM CDT Office Visit [facility] - Endocrinology - [place] #2 [place] [address] Annel Rod MD #[address] [phone] 11/13/2024 2:00 PM CDT Appointment [facility] Cardiology Services 1 [place] [address] Angelito Alegria, POULTICE MACHINE OPERATOR, SHOTGUN SHELL ASSEMBLY MACHINE OPERATOR #[address] [address] Discharge Disposition: Discharged to home or Selfcare [...] [facility] [address] [place] [address] PCP - General Family Medicine 10/17/17 David Roberts APRN, SHOTGUN SHELL ASSEMBLY MACHINE OPERATOR #2 [place] [address] Nurse Practitioner Advanced Practice Nurse 01/31/22 Annel Rod MD #[address] [address] Consulting Physician Endocrinology 07/01/22 documented as of this encounter
--- OUTSIDE RECORDS SUMMARY | 2024-10-08 09:49 | XMS_ITS | Encounter Summary ---
Author Organization [facility] Address [address] [place] [address] Care Team Providers Care Chemical Checker Name Role Phone Justen Gale MD Primary Care Provider [phone] Encounter Details Date Type Department Care Team (Late st Contact Info) Description 08/14/2024 Results Follow-Up ER at [facility] [address] [place] [address] Josué Bernal, STEPH [address] [place] [address] Social History Tobacco Use Types Packs/Day [...] heating? Somewhat hard 05/16/2023 [facility] - Occupational [...] in a prison (including now)? No 05/16/2023 Comments No Sex and Gender Information Value Date Recorded Sex Assigned at Not on file Legal Sex Female 6:53 PM SENIOR ATTORNEY Gender Identity Not on file Sexual Orientation [...] on filedocumented in this encounter Care Teams Chemical Checker Relationship Specialty Start Date End Date Justen Gale MD PCP - General 07/05/21 documented as of this encounter
--- OUTSIDE RECORDS SUMMARY | 2024-10-08 09:49 | XMS_ITS | Encounter Summary ---
Author Organization [facility] Address [address] [place] [address] Phone Care Team Providers Care Ophthalmic Tech Name Role Phone Justen Gale MD Primary Care Provider David Roberts APRN, TRANSIT SPECIALIST Unavailable Annel Rod MD Unavailable Reason for Visit * Reason Comments Medication Refill Encounter Details Date Type Department Care Team (Late st Contact Info) Description 07/06/2023 Refill [facility] #2 [place] [phone] Justen Gale MD #[address] [address] Medication Refill Social History Tobacco Use Types [...] AM CDT [facility]) [facility] 06/27/23 Office Visit Justen Gale MD [facility] [place] 01/17/23 Office Visit Catrina Quiñonez MD [facility] Showing recent visits within past 270 [...] 11:15 AM CDT Office Visit [facility] - Endocrinology - [place] #[address] [place] [address] Annel Rod MD #[address] [facility] [address] [place] [address] 11/13/2024 2:00 PM CDT Appointment [facility] Cardiology Services 1 [place] [address] Angelito Alegria, MANAGER MERCHANDISING, TRANSIT SPECIALIST #2 [facility] [address] [place] [address] Discharge Disposition: Discharged to home or Selfcare documented as of this encounter Visit Diagnoses Not on filedocumented in this encounter Additional Health Concerns Infection Onset Date Last Indicated Resolved Time COVID - 19 08/01/2024 08/01/2024 08/01/2024 3:20 PM CDT Assessment Noted Time PHQ-9 Depression Total Score: 8 01/18/20 23 2:24 PM CDT documented as of this encounter Care Teams Ophthalmic Tech Relationship Specialty Start Date End Date Justen Gale MD #[address] [address] PCP - General Family Medicine 10/17/17 David Roberts APRN, TRANSIT SPECIALIST #2 [place] [address] Nurse Practitioner Advanced Practice Nurse 01/31/22 Annel Rod MD #[address] [address] Consulting Physician Endocrinology 07/01/22 documented as of this encounter
--- OUTSIDE RECORDS SUMMARY | 2024-10-08 09:49 | XMS_ITS | Encounter Summary ---
Author Organization [facility] Address [address] [place] [address] Phone Care Team Providers Care Product Design Specialist Name Role Phone Justen Gale MD Primary Care Provider [phone] David Roberts APRN, ABALONE SHELLER Unavailable [phone] Annel Rod MD Unavailable Reason for Visit * Reason Comments Medication Refill Encounter Details Date Type Department Care Team (Late st Contact Info) Description 02/17/2021 Refill [facility] Family [facility] #2 [place] [phone] Justen Gale MD #[address] [address] Medication Refill Social History Tobacco Use Types [...] Mcgee 06/05/20 Office Visit Pili Elkins APRN, ABALONE SHELLER [facility] Showing recent visits within past 365 days and meeting all other requirements Future Appointments Date Type Provider Dept 03/02/21 Appointment Vince Hermosillo MD [facility] Showing future appointments within next 90 days and meeting all other requirements documented in this encounter Plan of Treatment Upcoming Encounters Date Type Department Care Team (Late st Contact Info) Description 10/22/2024 11:15 AM CDT Office Visit [facility] Endocr[facility] #2 [place] [address] Annel Rod MD #2 [facility] [address] [place] [address] 11/13/2024 2:00 PM CDT Appointment [facility] Cardiology Services 1 [place] [address] Angelito Alegria, LINE STAKER, ABALONE SHELLER #2 [facility] [address] [place] [address] Discharge Disposition: Discharged to home or Selfcare documented as of this encounter Visit Diagnoses Not on filedocumented in this encounter Additional Health Concerns Infection Onset Date Last Indicated Resolved Time COVID - 19 08/01/2024 08/01/2024 08/01/2024 3:20 PM CDT Assessment Noted Time PHQ-9 Depression Total Score: 0 07/21/19 3:00 PM CDT documented as of this encounter Care Teams Product Design Specialist Relationship Specialty Start Date End Date Justen Gale MD #[address] [address] PCP - General Family Medicine 10/17/17 David Roberts LINE STAKER, ABALONE SHELLER #2 [place] [address] Nurse Practitioner Advanced Practice Nurse 01/31/22 Annel Rod MD #[address] [address] Consulting Physician Endocrinology 07/01/22 documented as of this encounter
--- OUTSIDE RECORDS SUMMARY | 2024-10-08 09:49 | XMS_ITS | Encounter Summary ---
Author Organization [facility] Address [address] [place] [address] Phone Care Team Providers Care Claims Processor Name Role Phone Justen Gale MD Primary Care Provider David Roberts APRN, HEALTHCARE ADVISORY SERVICES MANAGER Unavailable Annel Rod MD Unavailable Reason for Visit * Reason Comments Medication Refill Encounter Details Date Type Department Care Team (Late st Contact Info) Description 10/24/2022 Refill [facility] - Family Medicine [facility] #2 [place] [address] Pili Elkins APRN, HEALTHCARE ADVISORY SERVICES MANAGER #[address] [address] Medication Refill Social History Tobacco [...] - Endocrinology [facility] #2 [place] [address] Annel Rod MD #[address] [address] 11/13/2024 2:00 PM CDT [facility] 1 [place] [address] Angelito Alegria, CENTRIFUGAL WAX MOLDER, HEALTHCARE ADVISORY SERVICES MANAGER #2 [facility] [address] [place] [address] Discharge Disposition: Discharged to home or Selfcare documented as of this encounter Visit Diagnoses Diagnosis Essential hypertension Unspecified essential hypertension documented in this encounter Additional Health Concerns Infection Onset Date Last Indicated Resolved Time COVID - 19 08/01/2024 08/01/2024 08/01/2024 3:20 PM CDT Assessment Noted Time PHQ-9 Depression Total Score: 0 09/17/19 11:00 AM CDT documented as of this encounter Care Teams Claims Processor Relationship Specialty Start Date End Date Justen Gale MD #[address] [address] PCP - General Family Medicine 10/17/17 David Roberts CENTRIFUGAL WAX MOLDER, HEALTHCARE ADVISORY SERVICES MANAGER #2 [place] [address] Nurse Practitioner Advanced Practice Nurse 01/31/22 Annel Rod MD #[address] [address] Consulting Physician Endocrinology 07/01/22 documented as of this encounter
--- OUTSIDE RECORDS SUMMARY | 2024-10-08 09:49 | XMS_ITS | Encounter Summary ---
Author Organization [facility] Address [address] [place] [address] Phone Care Team Providers Care Printed Circuit Board Assembly Repairer Name Role Phone Justen Gale MD Primary Care Provider David Roberts APRN, POTATO BUCKER Unavailable [phone] Annel Rod MD Unavailable Reason for Visit * Reason Comments Medication Refill Encounter Details Date Type Department Care Team (Late st Contact Info) Description 08/07/2023 Refill [facility] - Endocrinology - [place] #2 [place] [address] Annel Rod MD #[address] [address] Medication Refill Social History [...] Description 10/22/2024 11:15 AM CDT Office Visit [facility] - Endocrinology [facility] #2 [place] [address] Annel Rod MD #[address] [address] 11/13/2024 2:00 PM CDT [facility] 1 [place] [address] Angelito Alegria APRN, NETTA #[address] [address] Discharge Disposition: Discharged to home or Selfcare documented as of this encounter Visit Diagnoses Not on filedocumented in this encounter Additional Health Concerns Infection Onset Date Last Indicated Resolved Time COVID - 19 08/01/2024 08/01/2024 08/01/2024 3:20 PM CDT Assessment Noted Time PHQ-9 Depression Total Score: 8 01/18/20 2:24 PM CDT documented as of this encounter Care Teams Printed Circuit Board Assembly Repairer Relationship Specialty Start Date End Date Justen Gale MD #[address] [place] [address] PCP - General Family Medicine 10/17/17 David Roberts APRN, POTATO BUCKER #2 [place] [address] Nurse Practitioner Advanced Practice Nurse 01/31/22 Annel Rod MD #[address] [address] Consulting Physician Endocrinology 07/01/22 documented as of this encounter
--- OUTSIDE RECORDS SUMMARY | 2024-10-08 09:49 | XMS_ITS | Encounter Summary ---
Author Organization [facility] Address [address] [place] [address] Phone Care Team Providers Care X Ray Equipment Mechanic Name Role Phone Justen Gale MD Primary Care Provider David Roberts APRN, UTILITY ENGINEER Unavailable [phone] Annel Rod MD Unavailable Reason for Visit * Reason Comments Medication Refill Encounter Details Date Type Department Care Team (Late st Contact Info) Description 03/13/2021 Refill [facility] [address] [place] [address] Justen Gale MD #[address] [address] Medication Refill Social History Tobacco [...] COVID-19? No / Unsure 03/02/2021 5:05 PM ANIMAL CAREGIVER documented as of this encounter Plan of Treatment Upcoming Encounters Date Type Department Care Team (Late st Contact Info) Description 10/22/2024 11:15 AM CDT Office Visit [facility] Endocrinology [facility] #2 [place] [address] Annel Rod MD #2 [facility] [address] [place] [address] 11/13/2024 2:00 PM CDT [facility] 1 [place] [address] Angelito Alegria, HAND STONECUTTER, UTILITY ENGINEER #2 [facility] [address] [place] [address] Discharge Disposition: Discharged to home or Selfcare documented as of this encounter Visit Diagnoses Not on filedocumented in this encounter Additional Health Concerns Infection Onset Date Last Indicated Resolved Time COVID - 19 08/01/2024 08/01/2024 08/01/2024 3:20 PM CDT Assessment Noted Time PHQ-9 Depression Total Score: 0 07/21/19 3:00 PM CDT documented as of this encounter Care Teams X Ray Equipment Mechanic Relationship Specialty Start Date End Date Justen Gale MD #[address] [address] PCP - General Family Medicine 10/17/17 David Roberts APRN, UTILITY ENGINEER #2 [place] [address] Nurse Practitioner Advanced Practice Nurse 01/31/22 Annel Rod MD #2 [place] [phone] Consulting Physician Endocrinology 07/01/22 documented as of this encounter
--- OUTSIDE RECORDS SUMMARY | 2024-10-08 09:49 | XMS_ITS | Encounter Summary ---
Author Organization [facility] Address [address] [place] [address] Phone Care Team Providers Care Riveting Machine Operator Tape Control Name Role Phone Justen Gale MD Primary Care Provider [phone] David Roberts APRN, BIOFUELS PLANT SUPERINTENDENT Unavailable [phone] Annel Rod MD Unavailable Reason for Visit * Reason Comments Medication Refill Encounter Details Date Type Department Care Team (Late st Contact Info) Description 02/07/2023 Refill [facility] Family Medicine [facility] #2 [place] [address] Pili Elkins APRN, BIOFUELS PLANT SUPERINTENDENT #[address] [address] Medication Refill Social History Tobacco [...] - Endocrinology [facility] #2 [place] [address] Annel Rod MD #2 [facility] [address] [place] [address] 11/13/2024 2:00 PM CDT Appointment [facility] Cardiology Services 1 [place] [address] Angelito Alegria APRN, BIOFUELS PLANT SUPERINTENDENT #2 [facility] [address] [place] [address] Discharge Disposition: Discharged to home or Selfcare documented as of this encounter Visit Diagnoses Diagnosis Essential hypertension Unspecified essential hypertension documented in this encounter Additional Health Concerns Infection Onset Date Last Indicated Resolved Time COVID - 19 08/01/2024 08/01/2024 08/01/2024 3:20 PM CDT Assessment Noted Time PHQ-9 Depression Total Score: 8 01/18/20 2:24 PM CDT documented as of this encounter Care Teams Riveting Machine Operator Tape Control Relationship Specialty Start Date End Date Justen Gale MD #2 [facility] [address] [place] [address] PCP - General Family Medicine 10/17/17 David Roberts APRN, BIOFUELS PLANT SUPERINTENDENT #2 [place] [address] Nurse Practitioner Advanced Practice Nurse 01/31/22 Annel Rod MD #2 [facility] [address] [place] [address] Consulting Physician Endocrinology 07/01/22 documented as of this encounter
--- OUTSIDE RECORDS SUMMARY | 2024-10-08 09:49 | XMS_ITS | Encounter Summary ---
Author Organization [facility] Address [address] [place] [address] Phone Care Team Providers Care New Car Driver Name Role Phone Justen Gale MD Primary Care Provider David Roberts APRN, ENVELOPE MACHINE ADJUSTER Unavailable Annel Rod MD Unavailable Reason for Visit * Reason Comments Medication Refill Encounter Details Date Type Department Care Team (Late st Contact Info) Description 07/14/2022 Refill [facility] - Family Medicine [facility] #2 [place] [address] Justen Gale MD #[address] [address] Medication Refill Social History Tobacco Use Types [...] Visit [facility] - Endocrinology - [place] #2 [place] [address] Annel Rod MD #2 [facility] [address] [place] [address] 11/13/2024 2:00 PM CDT [facility] 1 [place] [address] Angelito Alegria APRN, ENVELOPE MACHINE ADJUSTER #2 [facility] [address] [place] [address] Discharge Disposition: Discharged to home or Selfcare documented as of this encounter Visit Diagnoses Not on filedocumented in this encounter Additional Health Concerns Infection Onset Date Last Indicated Resolved Time COVID - 19 08/01/2024 08/01/2024 08/01/2024 3:20 PM CDT Assessment Noted Time PHQ-9 Depression Total Score: 0 07/21/19 21 3:00 PM CDT documented as of this encounter Care Teams New Car Driver Relationship Specialty Start Date End Date Justen Gale MD #2 [facility] [address] [place] [address] PCP - General Family Medicine 10/17/17 David Roberts, RETAIL AREA MANAGER, ENVELOPE MACHINE ADJUSTER #2 [place] [address] Nurse Practitioner Advanced Practice Nurse 01/31/22 Annel Rod MD #2 [facility] [address] [place] [address] Consulting Physician Endocrinology 07/01/22 documented as of this encounter
--- OUTSIDE RECORDS SUMMARY | 2024-10-08 09:49 | XMS_ITS | Encounter Summary ---
Author Organization [facility] Address [address] [place] [address] Phone Care Team Providers Care Aquatic Biologist Name Role Phone Justen Gale MD Primary Care Provider David Roberts APRN, RESEARCH LIBRARIAN Unavailable [phone] Annel Rod MD Unavailable Reason for Visit * Reason Comments Medication Refill Encounter Details Date Type Department Care Team (Late st Contact Info) Description 03/05/2023 Refill [facility] Family Medicine [facility] #2 [place] [address] Pili Elkins APRN, RESEARCH LIBRARIAN #[address] [address] Medication Refill Social History Tobacco [...] discontinued on 10/19/2022 by Justen Gale MD TRICAL PRODUCTS SALES ENGINEER documented in this encounter Plan of Treatment Upcoming Encounters Date Type Department Care Team (Late st Contact Info) Description 10/22/2024 11:15 AM CDT Office Visit [facility] - Endocrinology - [place] #2 [place] [address] Annel Rod MD #2 [facility] [address] [place] [address] 11/13/2024 2:00 PM CDT [facility] 1 [place] [address] Angelito Alegria APRN, RESEARCH LIBRARIAN #2 [facility] [address] [place] [address] Discharge Disposition: Discharged to home or Selfcare documented as of this encounter Visit Diagnoses Diagnosis Essential hypertension Unspecified essential hypertension documented in this encounter Additional Health Concerns Infection Onset Date Last Indicated Resolved Time COVID - 19 08/01/2024 08/01/2024 08/01/2024 3:20 PM CDT Assessment Noted Time PHQ-9 Depression Total Score: 8 01/18/20 2:24 PM CDT documented as of this encounter Care Teams Aquatic Biologist Relationship Specialty Start Date End Date Justen Gale MD #2 [facility] [address] [place] [address] PCP - General Family Medicine 10/17/17 David Roberts APRN, NETTA #2 [place] [address] Nurse Practitioner Advanced Practice Nurse 01/31/22 Annel Rod MD #2 [facility] [address] [place] [address] Consulting Physician Endocrinology 07/01/22 documented as of this encounter
--- OUTSIDE RECORDS SUMMARY | 2024-10-08 09:49 | XMS_ITS | Clinical Summary ---
Author Organization [facility] Address [address] [place] [address] Phone Care Team Providers Care Cognos Bi Administrator Name Role Phone Justen Gale MD Primary Care Provider [phone] Allergies Active Allergy Reactions Criticality Noted Date [...] - 6.0 % 09/29/2017 10:28 AM CDT [employer] [facility] EST. AVG GLUCOSE, A1C 186 mg/dL 09/29/2017 10:28 AM CDT [employer] [facility] Blood Venipuncture / Unknown 09/28/2017 8:41 PM CDT 09/28/2017 8:46 PM CDT Narrative [facility] - 09/29/2017 10:28 AM CDT HGB A1C INTERPRETATION NORMAL: <5.7% PRE-DIABETES: 5.7 - 6.4% DIABETES: 6.5% OR GREATER us Francisco Castaneda MD CHEMISTRY ORDERABLES Final Resul t [facility] LiquidM [facility]# [id number] [address] [facility] [place] [address] * (ABNORMAL) LIPID PANEL (09/28/2017 8:41 PM CDT) CHOLESTEROL 174 <200 mg/dL 09/30/2017 2:45 AM CDT [facility] Liquid[facility] TRIGLYCERIDE 109 <150 mg/dL 09/30/2017 2:45 AM CDT [facility] LiquidM [facility] HDL 45 40 - 59 mg/dL 09/30/2017 2:45 AM CDT [facility] Liquid[employer] [facility] LDL CALCULATED 107(H) <100 mg/dL 09/30/2017 2:45 AM CDT [facility] LiquidM [facility] NON-HDL CHOLESTEROL 129 <130 mg/dL 09/30/2017 2:45 AM CDT [facility] [employer] [facility] Blood Venipuncture / Unknown 09/28/2017 8:41 PM CDT 09/28/2017 8:46 PM CDT Narrative [facility] - 09/30/2017 2:45 AM CDT TOTAL CHOLESTEROL [...] Castaneda MD CHEMISTRY ORDERABLES Final Resul t [facility] [id number] 5 [address] [facility] [place] [address] from Last 3 Months or Most Recently Relevant to Health Maintenance Insurance Advance Directives For more information, please contact: [phone] * Full Code (Latest Code Status on File) Date Activated Date Inactivated Comments 09/29/2017 7:45 AM 09/30/2017 9:14 PM * Full Code Date Activated Date Inactivated Comments 09/29/2017 1:25 AM 09/29/2017 7:45 AM Care Teams Cognos Bi Administrator Relationship Specialty Start Date End Date Justen Gale MD [address] [facility] [address] [place] [address] PCP - General Cardiovascular Disease 09/14/17
--- OUTSIDE RECORDS SUMMARY | 2024-10-08 09:49 | XMS_ITS ---
Author Organization [facility] Address [address] [facility] [place] [address] Care Team Providers Care Eyeglass Frames Inspector Name Role Phone Justen Gale MD Primary Care Provider [phone] Active Problems Problem Noted Date Diagnosed Date [...]
--- OUTSIDE RECORDS SUMMARY | 2024-10-08 09:49 | XMS_ITS | Encounter Summary ---
Author Organization [facility] Address [address] [place] [address] Phone Care Team Providers Care Casting Trucker Name Role Phone Justen Gale MD Primary Care Provider [phone] David Roberts APRN, PATIENT ACCESS SPECIALIST Unavailable Annel Rod MD Unavailable Reason for Visit * Reason Comments Medication Refill Encounter Details Date Type Department Care Team (Late st Contact Info) Description 04/13/2023 Refill [facility] - Endocr[facility]ology - [place] [address] [place] [address] Annel Rod MD #[address] [address] Medication Refill Social History Tobacco [...] encounter Miscellaneous Notes * Telephone Encounter - eJnnifer Wang, RN - 04/14/2023 10:00 AM CAREER DEVELOPMENT ASSOCIATE Requested Prescriptions Pending Prescriptions Disp Refills ??? Continuous Blood Gluc Sensor (FreeStyle Eileen 2 Sensor) Misc [Pharmacy Med Name: FREESTYLE EILEEN 2 SENSOR] 6 Each 1 Sig: APPLY 1 SENSOR AND WEAR FOR 14 DAYS TO CHECK BLOOD SUGAR Next appt: 05/30/2023 ER DEVELOPMENT ASSOCIATE documented in this encounter Plan of Treatment Upcoming Encounters Date Type Department Care Team (Late st Contact Info) Description 10/22/2024 11:15 AM CDT Office Visit [facility] - [place] [address] [place] [address] Annel Rod MD #2 [facility] [address] [place] [address] 11/13/2024 2:00 PM CDT [facility] [address] [place] [address] Angelito Alegria, ZAMZAM, PATIENT ACCESS SPECIALIST #2 [facility] [address] [place] [address] Discharge Disposition: Discharged to home or Selfcare documented as of this encounter Visit Diagnoses Not on filedocumented in this encounter Additional Health Concerns Infection Onset Date Last Indicated Resolved Time COVID - 19 08/01/2024 08/01/2024 08/01/2024 3:20 PM CDT Assessment Noted Time PHQ-9 Depression Total Score: 8 01/18/20 2:24 PM CDT documented as of this encounter Care Teams Casting Trucker Relationship Specialty Start Date End Date Justen Gale MD #2 [facility] [address] [place] [address] PCP - General Family Medicine 10/17/17 David Roberts APRN, PATIENT ACCESS SPECIALIST #2 [place] [address] Nurse Practitioner Advanced Practice Nurse 01/31/22 Annel Rod MD #[address] [address] Consulting Physician Endocrinology 07/01/22 documented as of this encounter
--- OUTSIDE RECORDS SUMMARY | 2024-10-08 09:49 | XMS_ITS | Encounter Summary ---
Author Organization [facility] Address [address] [place] [address] Phone Care Team Providers Care Acute Specialist Name Role Phone Justen Gale MD Primary Care Provider David Roberts APRN, SYSTEM SOFTWARE PROGRAMMER Unavailable Annel Rod MD Unavailable Reason for Visit * Reason Comments Medication Refill Encounter Details Date Type Department Care Team (Late st Contact Info) Description 07/12/2022 Refill [facility] - Family Medicine [facility] #2 [place] [address] Justen Gale MD #[address] [address] Medication Refill Social History Tobacco Use Types [...] 07/05/22 Office Visit Pili Elkins APRN, NETTA [facility] [place] 05/02/22 Office Visit Justen Gale MD [facility] [place] 03/03/22 Office Visit Pili Elkins APRN, SYSTEM SOFTWARE PROGRAMMER [facility] [place] 01/03/22 Office Visit Dannielle Berg PAC [facility] [place] 12/07/21 Office Visit Pili Elkins APRN, NETTA [facility] [place] 11/09/21 Office Visit Pili Elkins APRN, NETTA [facility] [place] 10/08/21 Office Visit Angelito Alegria APRN, NETTA [facility] [place] 08/30/21 Office Visit Justen Gale MD [...] Visit [facility] - Endocrinology [facility] #2 [place] [address] Annel Rod MD #[address] [address] 11/13/2024 2:00 PM CDT [facility] 1 [place] [address] Angelito Alegria APRN, SYSTEM SOFTWARE PROGRAMMER #[address] [address] Discharge Disposition: Discharged to home or Selfcare documented as of this encounter Visit Diagnoses Not on filedocumented in this encounter Additional Health Concerns Infection Onset Date Last Indicated Resolved Time COVID - 19 08/01/2024 08/01/2024 08/01/2024 3:20 PM CDT Assessment Noted Time PHQ-9 Depression Total Score: 0 07/21/19 3:00 PM CDT documented as of this encounter Care Teams Acute Specialist Relationship Specialty Start Date End Date Justen Gale MD #[address] [address] PCP - General Family Medicine 10/17/17 David Roberts APRN, SYSTEM SOFTWARE PROGRAMMER #2 [place] [address] Nurse Practitioner Advanced Practice Nurse 01/31/22 Annel Rod MD #[address] [address] Consulting Physician Endocrinology 07/01/22 documented as of this encounter
--- OUTSIDE RECORDS SUMMARY | 2024-10-08 09:49 | XMS_ITS | Encounter Summary ---
Author Organization [facility] Address [address] [place] [address] Phone Care Team Providers Care Fire Engine Pump Operator Name Role Phone Justen Gale MD Primary Care Provider David Roberts APRN, VETERAN APPEALS REVIEWER Unavailable [phone] Annel Rod MD Unavailable Reason for Visit * Reason Comments Medication Refill Encounter Details Date Type Department Care Team (Late st Contact Info) Description 03/02/2023 Refill [facility] - [facility] #2 [place] [id number] Justen Gale MD #[address] [address] Medication Refill Social History Tobacco Use Types [...] Tamika Villarreal RN - 03/02/2023 8:51 AM BLASTING GANG MINER Medication failed the protocol, provider to review [...] Dept 01/17/23 Office Visit Catrina Quiñonez MD [facility] 09/16/22 Office Visit Pili Elkins APRN, CNP [facility] 07/05/22 Office Visit Pili Elkins APRN, NETTA [facility] 05/02/22 Office Visit Justen Gale MD [facility] 03/03/22 Office Visit Pili Elkins APRN, NETTA [facility] Showing recent visits within past 365 days and meeting all other requirements Future Appointments No visits were found meeting these conditions. Showing future appointments within next 90 days and meeting all other requirements TING GANG MINER documented in this encounter Plan of Treatment Upcoming Encounters Date Type Department Care Team (Late st Contact Info) Description 10/22/2024 11:15 AM CDT Office Visit [facility] - Endocrinology - [place] #2 [place] [address] Annel Rod MD #[address] [phone] 11/13/2024 2:00 PM CDT Appointment [facility] Cardiology Services 1 [place] [address] Angelito Alergia, MANAGER TRUST, VETERAN APPEALS REVIEWER #[address] [address] Discharge Disposition: Discharged to home or Selfcare documented as of this encounter Visit Diagnoses Not on filedocumented in this encounter Additional Health Concerns Infection Onset Date Last Indicated Resolved Time COVID - 19 08/01/2024 08/01/2024 08/01/2024 3:20 PM CDT Assessment Noted Time PHQ-9 Depression Total Score: 8 01/18/20 2:24 PM CDT documented as of this encounter Care Teams Fire Engine Pump Operator Relationship Specialty Start Date End Date Justen Gale MD #[address] [address] PCP - General Family Medicine 10/17/17 David Roberts APRN, VETERAN APPEALS REVIEWER #2 [place] [address] Nurse Practitioner Advanced Practice Nurse 01/31/22 Annel Rod MD #[address] [address] Consulting Physician Endocrinology 07/01/22 documented as of this encounter
--- OUTSIDE RECORDS SUMMARY | 2024-10-08 09:49 | XMS_ITS | Encounter Summary ---
Author Organization [facility] Address [address] [place] [address] Phone Care Team Providers Care Methods Specialist Engineer Name Role Phone Justen Gale MD Primary Care Provider [phone] David Roberts APRN, MECHANICAL ENERGY ENGINEER Unavailable Annel Rod MD Unavailable Reason for Visit * Reason Onset Date Comments Medication Refill 08/06/2020 Encounter Details Date Type Department Care Team (Late st Contact Info) Description 08/06/2020 Refill [facility] - Family [facility] #2 [place] [phone] Justen Gale MD #[address] [address] Medication Refill Social History Tobacco Use Types [...] Outpatient Visits 2 weeks ago [facility] APN, MECHANICAL ENERGY ENGINEER 2 months ago Increased urinary frequency [facility] Pili Mueller APN, MECHANICAL ENERGY ENGINEER 5 months ago Urinary frequency [facility] Pili Mueller APN, MECHANICAL ENERGY ENGINEER 8 months ago Type 2 diabetes mellitus with diabetic polyneuropathy, with long- term current use of insulin (HCC) [facility] Pili Mueller APN, MECHANICAL ENERGY ENGINEER 9 months ago Nausea [facility] Justen Urbano MD Upcoming Appointments Future Appointments In 6 days Pili Elkins APN, MECHANICAL ENERGY ENGINEER [facility] RESTAURANT ASSISTANT MANAGER - Recent and Past Visits Recent Visits Date Type Provider Dept 07/20/20 Office Visit Pili Elkins APN, MECHANICAL ENERGY ENGINEER [facility] [place] 06/05/20 Office Visit Pili Elkins APN, NETTA [facility] [place] 02/17/20 Office Visit Pili Elkins APN, NETTA [facility] [place] [facility] 12/03/19 Office Visit Pili Elkins APN, NETTA [facility] 11/05/19 Telemedicine Justen Gale MD [facility] 07/25/19 Telemedicine [facility] Showing recent visits within past 460 days with a meds authorizing provider and meeting all other requirements Future Appointments Date Type Provider Dept 08/12/20 Appointment Pili Elkins APN, CNP [facility] [place] Showing future appointments within next 90 [...] 10/22/2024 11:15 AM CDT Office Visit [facility] - Endocrinology - [place] #2 [place] [address] Annel Rod MD #[address] [address] 11/13/2024 2:00 PM CDT Appointment [facility] Cardiology Services 1 [place] [address] Angelito Alegria STUDENT ACTIVITIES DIRECTOR, MECHANICAL ENERGY ENGINEER #2 [facility] [address] [place] [address] Discharge Disposition: Discharged to home or Selfcare documented as of this encounter Visit Diagnoses Not on filedocumented in this encounter Additional Health Concerns Infection Onset Date Last Indicated Resolved Time COVID - 19 08/01/2024 08/01/2024 08/01/2024 3:20 PM CDT Assessment Noted Time PHQ-9 Depression Total Score: 0 07/21/19 3:00 PM CDT documented as of this encounter Care Teams Methods Specialist Engineer Relationship Specialty Start Date End Date Justen Gale MD #[address] [address] PCP - General Family Medicine 10/17/17 David Roberts APRN, MECHANICAL ENERGY ENGINEER #2 [place] [address] Nurse Practitioner Advanced Practice Nurse 01/31/22 Annel Rod MD #[address] [address] Consulting Physician Endocrinology 07/01/22 documented as of this encounter
--- OUTSIDE RECORDS SUMMARY | 2024-10-08 09:50 | XMS_ITS | Clinical Summary ---
Author Organization [facility] Address [address] [place] [address] Phone Care Team Providers Care Instrument Room Technician Name Role Phone Justen Gale MD Primary Care Provider [phone] David Roberts APRN, HOUSE COORDINATOR Unavailable Annel Rod MD Unavailable Allergies Active [...] Tablet by mouth. 12/28/19 24 Active Multiple Vitamins-[place] als (WOMENS MULTI PO) Take by mouth. [...] taking until cleared by PCP office or linux server engineer. Will need to taper off slowly. Indications: Polymyalgia Rheumatica 30 Tablet 10/01/19 25 Active predniSONE (DELTASONE) 10 MG TabletIndicati ons:Polymyalgi a Rheumatica Take 1 Tablet by mouth daily. Do not stop taking until cleared by PCP office or linux server engineer. Will need to taper off slowly. [...] Overview: Added automatically from request for surgery [id number] Lymphedema of left upper extremity 08/09/2016 Pulmonary embolism 08/09/2016 Overview (11/09/2017): Last Assessment & Plan: On Rivaroxaban Arthralgia of ankle 01/26/2015 Cellulitis of breast 11/11/2014 Encounters Date Type Department Care Team Description 10/08/2024 Nurse Triage [facility] [address] [place] [phone] Justen Gale MD Abdominal Pain 09/30/2024 MyChart RX Renewal [facility] [address] [place] [phone] Dulce Wolff, CLIP BAKER, HOUSE COORDINATOR Medication Renewal Reviewed 09/29/2024 Nurse Triage [facility] [address] [place] [phone] Justen Gale MD Urinary Tract Infection 09/23/2024 Nurse Triage [facility] [address] [place] [phone] Justen Gale MD Breathing Problem; Pain 09/23/2024 Telephone [facility] [address] [place] [phone] Justen Gale MD Pain 09/11/2024 Telephone [facility] [address] [place] [phone] Justen Gale MD Follow-up 09/06/2024 1:15 PM CDT Office Visit [facility] [address] [place] [address] Dulce Wolff, CLIP BAKER, HOUSE COORDINATOR Enlarged tonsils (Primary Dx); Polymyalgia rheumatica (HCC); Oral candidiasis; Edema, unspecified type Discharge Disposition: Discharged to home or Selfcare 09/06/2024 Travel 09/03/2024 Telephone [facility] [address] [place] [address] Justen Gale MD Follow-up 09/02/2024 Nurse Triage [facility] [address] [place] [phone] Justen Gale MD Sore Throat 08/20/2024 1:15 PM CDT Office Visit [facility] [address] [place] [phone] Justen Gale MD Acute maxillary sinusitis, recurrence not specified (Primary Dx) Discharge Disposition: Discharged to home or Selfcare 08/20/2024 Travel 08/19/2024 Telephone [facility] [address] [place] [address] Justen Gale MD Advice Only; Follow-up 08/14/2024 Telephone [facility] [place] [address] [place] [phone] Annel Rod MD High Blood Sugar 08/13/2024 [facility] [address] [place] [phone] Justen Gale MD High Blood Sugar 08/07/2024 9:20 AM CDT Lab [facility] [address] [phone] [facility]Ancillary Body aches; Diffuse arthralgia Discharge Disposition: Discharged to home or Selfcare 08/07/2024 8:30 AM CDT Office Visit [facility] [address] [place] [phone] Angelito Alegria APRN, CNP Diffuse arthralgia (Primary Dx); Dyspnea on exertion; Type 2 diabetes mellitus with diabetic polyneuropathy, with long-term current use of insulin (HCC) Discharge Disposition: Discharged to home or Selfcare 08/07/2024 Results Follow-Up [facility] [address] [place] [phone] Angelito Alegria APRN, CNP CREATINE KINASE (CK) TOTAL, ERYTHROCYTE SEDIMENTATION RATE (ESR), C-REACTIVE PROTEIN (CRP) QUANT 08/07/2024 Nurse Triage [facility] [address] [place] [phone] Justen Gale MD Breathing Problem; Muscle Pain 08/06/2024 Travel 08/05/2024 MyChart RX Renewal [facility] Endocrinology [facility] [address] [place] [phone] Annel Rod MD Medication Renewal Reviewed 08/05/2024 Nurse Triage [facility] [address] [place] [phone] Justen Gale MD Muscle Pain; Follow-up 08/03/2024 3:36 AM CDT - 08/03/2024 7:05 AM CDT Emergency [facility] Emergency [address] [place] [phone] Sergio Rivera MD Myalgia Discharge Disposition: Discharged to home or Selfcare 08/02/2024 Travel 08/02/2024 Nurse Triage [facility] [address] [place] [phone] Justen Gale MD Hemoptysis 08/02/2024 Telephone [facility] [address] [place] [phone] Justen Gale MD Results 08/02/2024 Telephone [facility] [address] [place] [phone] Angelito Alegria APRN, NETTA Results 08/02/2024 MyChart RX Renewal [facility] [address] [place] [phone] Annel Rod MD Medication Renewal Reviewed 08/01/2024 2:13 PM CDT - 08/01/2024 4:16 PM CDT [facility] [address] [place] [phone] Jack Leiva MD Dyspnea on exertion Discharge Disposition: Discharged to home or Selfcare 08/01/2024 1:15 PM CDT Office Visit [facility] [address] [place] [phone] Angelito Alegria APRN, HOUSE COORDINATOR Body aches (Primary Dx) Discharge Disposition: Discharged to home or Selfcare 08/01/2024 Travel 08/01/2024 Nurse Triage [facility] [address] [place] [phone] Justen Gale MD Pain 07/22/2024 Telephone [facility] [address] [place] [phone] Justen Gale MD Appointment 07/11/2024 Nurse Triage [facility] [address] [place] [phone] Justen Gale MD Toe Problem from Last [...] Recorded In the past 12 months has [employer], gas, oil, or water [employer] threatened to shut off services in your [...] you attend chur ch or sabianist services? More than 4 times per year [...] Total Score - Questions 1-9 0 07/23 [facility] - Occupational [...] Endocrinology [facility] [address] [place] [phone] Annel Rod MD [address] [phone] 11/13/2024 2:00 PM CDT [facility] [address] [place] [phone] Angelito Alegria APRN, HOUSE COORDINATOR [address] [place] [id number] Discharge Disposition: Discharged to home or Selfcare [...] screening for human papillomavirus (HPV) PATHOLOGY CYTOLOGY DISABILITY ADVOCATE Routine 07/05/2022 2:24 PM CDT Encounter for [...] Organization Address [facility] de Phone Number SCAN * CT - ABDOMEN/PELVIS (10/03/2024 12:00 AM CDT) 10/03/2024 us Provider Scan IMG CT ORDERABLES Final Result Performing Organization Address [facility] de Phone Number SCAN * XR - CHEST (09/27/2024 12:00 AM CDT) Only the most recent of3 resultswithin the time period is included. 09/27/2024 us Provider Scan IMG DIAGNOSTIC ORDERABLES Final Result Performing Organization Address [facility] de Phone Number SCAN * PAIN CONSULT (09/19/2024 12:00 AM CDT) Only the most recent of2 resultswithin the time period is included. 09/19/2024 us Justen Gale MD GENERIC SCAN ORDERS CONSULT F inal Result Performing Organization Address [facility] Co de Phone Number SCAN * CT - HEAD/NECK (08/13/2024 12:00 AM CDT) 08/13/2024 us Provider Scan IMG CT ORDERABLES Final Result Performing Organization Address [facility] Co de Phone Number SCAN * (ABNORMAL) ERYTHROCYTE SEDIMENTATION RATE (ESR) (08/07/2024 8:59 AM CDT) Only the most recent of2 resultswithin the time period is included. ESR (SED RATE, ERYTHROCYTE SEDIMENTATION RATE) 52(H) <30 mm/h 08/07/2024 12:34 PM CDT [facility] Comment: Patients presenting with increased level of fibrinogen, gamma globulins, or abnormally shaped RBCs could affect the results for the erythrocyte sedimentation rate (ESR). Results should be clinically correlated. Blood Venipuncture / Unknown 08/07/2024 8:59 AM CDT 08/07/2024 8:59 AM CDT Angelito Alegria APRN, CNP HEMATOLOGY ORDER CHAPARRO Final Result Performing Organization Address [facility] de Phone Number [facility] [address] [place] [address] * CREATINE KINASE (CK) TOTAL (08/07/2024 8:59 AM CDT) Only the most recent of2 resultswithin the time period is included. CK (CPK) 151 29 - 168 U/L 08/07/2024 1:08 PM CDT [facility] Blood Venipuncture / Unknown 08/07/2024 8:59 AM CDT 08/07/2024 8:59 AM CDT Angelito Alegria APRN, CNP HEMATOLOGY ORDER CHAPARRO Final Result Performing Organization Address [facility] Co de Phone Number [facility] [address] [place] [address] * (ABNORMAL) C-REACTIVE PROTEIN (CRP) QUANT (08/07/2024 8:59 AM CDT) Only the most recent of2 resultswithin the time period is included. C-REACTIVE PROTEIN 1.21(H) <0.50 mg/dL 08/07/2024 12:54 PM CDT [facility] Blood Venipuncture / Unknown 08/07/2024 8:59 AM CDT 08/07/2024 8:59 AM CDT Angelito Alegria APRN, CNP CHEMISTRY ORDERA BLES Final Result Performing Organization Address City/[facility]/ZIP Co de Phone Number [facility] [address] [place] [address] * (ABNORMAL) POCT GLUCOSE (08/07/2024 8:31 AM [...] Sen Sy M.D. JANIYA: JANIYA Report ID: [id number] [place] Location: [id number] Procedure Note Dillon Sy MD - 08/03/2024 [...] Sen Sy M.D. JANIYA: JANIYA Report ID: [id number] [place] Location: [id number] IMPRESSION: Negative right hip. Sergio Rivera MD [...] signed by Patrick STOCKTON: KATH Report ID: [id number] [place] Location: [id number] Procedure Note Patrick Zhou MD - 08/03/2024 [...] signed by Patrick STOCKTON: KATH Report ID: [id number] [place] Location: [id number] IMPRESSION: Mild bilateral infiltrates are suspected superimposed on chronic lung changes. Sergio Rivera MD [facility] DIAGNOSTIC ORDERABLES Final Result * CBC with Auto Differential (08/02/2024 11:21 PM CDT) Only the most recent of2 resultswithin the time period is included. WBC 9.26 4.00 - 12.00 10(3)/mcL 08/03/2024 12:08 AM CDT [facility] RBC 4.62 3.80 - 5.30 10(6)/mcL 08/03/2024 12:08 AM CDT [facility] HEMOGLOBIN (HGB) 13.5 12.0 - 15.8 g/dL 08/03/2024 12:08 AM CDT [facility] HEMATOCRIT (HCT) 42.9 36.0 - 47.0 % 08/03/2024 12:08 AM CDT [facility] MCV 92.9 82.0 - 96.0 fL 08/03/2024 12:08 AM CDT [facility] MCH 29.2 26.0 - 34.0 pg 08/03/2024 12:08 AM CDT [facility] MCHC 31.5 31.0 - 36.0 g/dL 08/03/2024 12:08 AM CDT [facility] PLATELET COUNT 272 140 - 440 10(3)/mcL 08/03/2024 12:08 AM CDT [facility] RDW 12.8 11.8 - 15.5 % 08/03/2024 12:08 AM CDT [facility] MPV 10.2 9.7 - 12.4 fL 08/03/2024 12:08 AM CDT [facility] NEUTROPHILS 62.5 47.0 - 73.0 % 08/03/2024 12:08 AM CDT [facility] LYMPHOCYTES 27.1 18.0 - 42.0 % 08/03/2024 12:08 AM CDT [facility] MONOCYTES 7.1 4.0 - 12.0 % 08/03/2024 12:08 AM CDT [facility] EOSINOPHILS 3.0 0.0 - 5.0 % 08/03/2024 12:08 AM CDT [facility] BASOPHILS 0.3 0.0 - 1.0 % 08/03/2024 12:08 AM CDT [facility] ABSOLUTE NEUTROPHILS 5.78 1.60 - 7.70 10(3)/mcL 08/03/2024 12:08 AM CDT [facility] ABSOLUTE LYMPHOCYTES 2.51 1.30 - 3.20 10(3)/mcL 08/03/2024 12:08 AM CDT [facility] ABSOLUTE MONOCYTES 0.66 0.20 - 1.00 10(3)/mcL 08/03/2024 12:08 AM CDT [facility] ABSOLUTE EOSINOPHIL 0.28 0.00 - 0.40 10(3)/mcL 08/03/2024 12:08 AM CDT [facility] ABSOLUTE BASOPHILS 0.03 0.00 - 0.10 10(3)/mcL 08/03/2024 12:08 AM CDT [facility] NRBC PER 100 WBC 0 08/04/19 25 12:08 AM CDT [facility] Blood Venipuncture / Unknown 08/02/2024 11:21 PM CDT 08/03/2024 12:05 AM CDT us Sergio Rivera MD HEMATOLOGY ORDERABLES Final Resu lt [facility] [address] [place] [address] * (ABNORMAL) CMP (Comprehensive Metabolic Panel) (08/02/2024 [...] 0.60 - 1.00 mg/dL 08/03/2024 12:29 AM [facility] BUN/CREATININE RATIO 23(H) 12 - 20 ratio 08/03/2024 12:29 AM [facility] TOTAL PROTEIN 8.4(H) 6.0 - 8.0 g/dL 08/03/2024 12:29 AM [facility] ALBUMIN 3.8 3.5 - 5.0 g/dL 08/03/2024 12:29 AM [facility] A/G RATIO 0.8(L) 1.0 - 2.2 08/03/2024 12:29 AM [facility] CALCIUM 10.0 8.7 - 10.5 mg/dL 08/03/2024 12:29 AM [facility] T BILI 0.4 0.2 - 1.2 mg/dL 08/03/2024 12:29 AM [facility] SGOT (AST) 23 <43 U/L 08/03/2024 12:29 AM [facility] SGPT (ALT) 22 <56 U/L 08/03/2024 12:29 AM [facility] ALKALINE PHOSPHATASE 67 40 - 150 U/L 08/03/2024 12:29 AM [facility] GFR, ESTIMATED >60 >=60 08/03/2024 12:29 AM [facility] Comment: Creatinine Clearance is the preferred criteria for selecting drug dose adjustments in renally impaired patients. The GFR is provided as additional pertinent clinical information. GFR is reported in mL/min/1.73 sq m. Calculation based on the Chronic Kidney Disease Epidemiology Collaboration (CKD- EPI) equation refit without adjustment for race. GFR, EST. >60 >=60 025 12:29 AM [facility] GFR, EST. NONAFRICAN >60 >=60 08/03/2024 12:29 AM [facility] Blood Venipuncture / Unknown 08/02/2024 11:21 PM CDT 08/03/2024 12:05 AM CDT us Sergio Rivera MD CHEMISTRY ORDERABLES Final Resul t Performing Organization Address City/[facility]/ZIP Co de Phone Number [facility] [address] [place] [address] * TROPONIN I, HIGH SENSITIVITY (HSTRP) (08/01/2024 [...] Leiva MD CHEMISTRY ORDERABLES Deann l Result [facility] [address] [place] [address] * Gold Top Tube (08/01/2024 2:48 PM CDT) Blood No Phlebotomy Charged / Unknown 08/01/2024 2:48 PM CDT 08/01/2024 3:12 PM CDT us Jack Leiva MD CHEMISTRY ORDERABLES Deann l Result [facility] [address] [place] [address] * Blue Top Tube (08/01/2024 2:48 PM CDT) Blood No Phlebotomy Charged / Unknown 08/01/2024 2:48 PM CDT 08/01/2024 3:12 PM CDT us Jack Leiva MD HEMATOLOGY ORDERABLES Fin al Result Performing Organization Address City/[facility]/ZIP Co de Phone Number [facility] [address] [place] [address] * Magnesium (08/01/2024 2:48 PM CDT) Pathologist [facility] MAGNESIUM 1.6 1.6 - 2.6 mg/dL 08/01/2024 3:39 PM CDT [facility] Blood Venipuncture / Unknown 08/01/2024 2:48 PM CDT 08/01/2024 3:08 PM CDT us Jack Leiva MD CHEMISTRY ORDERABLES Deann l Result Performing Organization Address [facility] Co de Phone Number [facility] [address] [place] [address] * B-Type Natriuretic Peptide (BNP) (08/01/2024 2:48 PM CDT) [facility] B TYPE NATRIURETIC PEPTIDE 23 <100 pg/mL 08/01/2024 3:37 PM CDT [facility] Blood Venipuncture / Unknown 08/01/2024 2:48 PM CDT 08/01/2024 3:08 PM CDT us Jack Leiva MD CHEMISTRY ORDERABLES Deann l Result Performing Organization Address City/[facility]/ZIP Co de Phone Number [facility] [address] [place] [address] * EKG 12 LEAD (08/01/2024 2:41 PM CDT) Ventricular Rate 75 BPM EXTERNAL EKG Atrial Rate 75 BPM EXTERNAL EKG P-R Interval 134 ms EXTERNAL EKG QRS Duration 82 ms EXTERNAL EKG Q-T Duration 380 ms EXTERNAL EKG QTC CALCULATION 424 ms EXTERNAL EKG P Celina -77 degrees EXTERNAL EKG R Celina 28 degrees EXTERNAL EKG T Celina 53 degrees EXTERNAL EKG 08/01/2024 2:41 PM CDT Impressions EXTERNAL EKG - 08/04/2024 12:00 PM CDT Atrial-sensed ventricular-paced rhythm Abnormal ECG No previous ECGs available Confirmed by Maryann Clay ([id number]) on 08/04/2024 11:59:59 AM Narrative Procedure Note Maryann Clay MD - 08/04/2024 IMPRESSION: Atrial-sensed ventricular-paced rhythm Abnormal ECG No previous ECGs available Confirmed by Maryann Clay ([id number]) on 08/04/2024 11:59:59 AM us Jack Leiva [...] Romelia Bowen D.O. PS: PS Report ID: [id number] [place] Location: [id number] Procedure Note Romelia Bowen DO - 08/01/2024 [...] Romelia Bowen D.O. PS: PS Report ID: [id number] [place] Location: [id number] IMPRESSION: Patchy left basilar airspace opacities, which may be related to subsegmental atelectasis/scarring versus developing airspace disease. Jack Leiva MD IMG DIAGNOSTIC ORDERABLES Final Result * RSV,SARS-COV-2,INFLUENZA A&B BY PCR (08/01/2024 2:28 PM CDT) FLU A Negative Negative, Error 08/01/2024 3:20 PM CDT [facility] FLU B Negative Negative 08/01/2024 3:20 PM CDT [facility] RESP SYNC VIRUS Negative Negative 3:20 PM CDT [facility] SARSCOV2 NOT DETECTED (Reference Range for this test is Not Detected) 08/01/2024 3:20 PM CDT [facility] Comment:This test was perfor med by a Reverse Mail Forwarding System Markup Clerk PCR Method. Swab NASOPHARYNGEAL STRUCTURE / Unknown Non-Phlebotomy Collection / Unknown 08/01/2024 2:28 PM CDT 08/01/2024 2:33 PM CDT Jack Leiva MD MICROBIOLOGY - GENERAL OR DERABLES Final Result Performing Organization Address City/State/[facility] Co de Phone Number [facility] [address] [place] [address] * EKG SCAN (08/01/2024 12:00 AM CDT) 08/01/2024 us Provider Scan IMG ECG ORDERABLES Final Result Performing Organization Address City/[facility] Co de Phone Number RESULTING AGENCY * CT - CHEST (07/22/2024 12:00 AM CDT) 07/22/2024 us Provider Scan IMG CT ORDERABLES Final Result Performing Organization Address [facility] de Phone Number SCAN * XR - LOWER EXTREMITY (07/10/2024 12:00 AM CDT) 07/10/2024 us Provider Scan IMG DIAGNOSTIC ORDERABLES Final Result Performing Organization Address [facility] Co de Phone Number SCAN * HEMOGLOBIN, A1C (10/02/2023 12:00 AM CDT) HGB-A1C 7.8 SCAN 10/02/2023 us Provider Scan CHEMISTRY ORDERABLES Final Resul t Performing Organization Address [facility] de Phone Number SCAN * PATHOLOGY CYTOLOGY DISABILITY ADVOCATE (07/05/2022 2:24 PM CDT) SPECIMEN ADEQUACY A scant cellular component is noted. Scant cellularity is likely due to presence of lubricant. 07/08/2022 8:38 AM CDT [facility] DESCRIPTIVE DIAGNOSIS NEGATIVE FOR INTRAEPITHELIAL LESIONS OR MALIGNANCY. 07/08/2022 8:38 AM CDT [facility] at 0838 CDT OTHER FINDINGS Atrophic hormonal pattern. 07/08/2022 8:[address] [facility] Automated Examination This sample was not evaluated by the automated imaging and review system ([employer] System, [employer], [place], [place] due to technical and / or biologic factor(s). The case was screened, reviewed, and finalized by a insurance representative and / or pathologist. 07/08/2022 8:[address] [facility] Disclaimer The PAP smear is [...] clinically indicated. 07/08/2022 8:[address] [facility] Other CERVIX UTERI STRUCTURE / Unknown Non-Phlebotomy Collection / Unknown 07/05/2022 2:24 PM CDT 07/05/2022 2:24 PM CDT us Pili Elkins APRN, NETTA PATHOLOGY/CYTOLOGY O RDERABLES Final Result [facility] [address] [place] [address], * HUMAN PAPILLOMA VIRUS (HPV) (07/05/2022 2:24 PM CDT) HPV OTHER HIGH RISK TYPES, PCR NEGATIVE NEGATIVE 07/06/2022 2:[address] [facility] Comment: The following Other High [...] NEGATIVE NEGATIVE 07/06/2022 2:[address] [facility] Comment: A negative high-risk HPV [...] NEGATIVE NEGATIVE 07/06/2022 2:[address] [facility] Comment: A negative high-risk HPV [...] CDT 07/05/2022 2:[address] [facility] - 07/06/2022 2:37 PM CDT Performed by [employer]Time Polymerase Chain Reaction (PCR) on the Ronnie Vinay 4800. This assay has been validated for use with post-aliquot samples from the [employer] T5000 processor. us Pili Elkins APRN, CNP LAB SEND OUTS Deann l Result [facility] [address] [place] [address], [facility] [address] [place] [address] * HM COLONOSCOPY (01/09/2020) us Genaro Jensen DO PROCEDURE/MINOR SURGICAL ORDERA BLES Final Result * AMB REFERRAL TO PODIATRY (08/13/2019) us Alvarez Mensah MD OUTPATIENT REFERRALS Final Res ult * POCT STOOL, OCCULT BLOOD, DIAGNOSTIC (09/07/2018 1:20 PM CDT) OCCULT BLOOD, STOOL Negative Negative, Other POC HEMOCULT CONTROL Sausage Smoker Pass 09/07/2018 1:20 PM CDT us Pili Elkins APRN, HOUSE COORDINATOR POINT OF CARE TESTIN G (MANUAL) Final Result from Last 3 Months or Most Recently Relevant to Health Maintenance Insurance MEDICARE C [facility] Care Teams Instrument Room Technician Relationship Specialty Start Date End Date Justen Gale MD [address] [address] PCP - General Family Medicine 10/17/17 David Roberts APRN, HOUSE COORDINATOR [address] [place] [address] Nurse Practitioner Advanced Practice Nurse 01/31/22 Annel Rod MD [address] [address] Consulting Physician Endocrinology 07/01/22
--- OUTSIDE RECORDS SUMMARY | 2024-10-08 09:50 | XMS_ITS | Encounter Summary ---
Author Organization [facility] Address [address] [place] [address] Phone Care Team Providers Care Engineering Group Manager Name Role Phone Justen Gale MD Primary Care Provider [phone] David Roberts APRN, OPERATING TABLE ASSEMBLER Unavailable Annel Rod MD Unavailable Reason for Visit * Reason Onset Date Comments Advice Only 11/21/2023 Encounter Details Date Type Department Care Team (Late st Contact Info) Description 11/21/2023 Telephone [facility] [address] [place] [address] Justen Gale MD #[address] [address] Advice Only Social History Tobacco Use Types [...] 11/21/2023 3:17 PM CDT RFC: Alejandra from [facility] is calling to state that [...] Visit [facility]ology - [place] #[address] [place] [address] Annel Rod MD #2 [facility] [address] [place] [address] 11/13/2024 2:00 PM CDT [facility] [address] [place] [address] Angelito Alegria APRN, OPERATING TABLE ASSEMBLER #2 [facility] [address] [place] [address] Discharge Disposition: Discharged to home or Selfcare documented as of this encounter Visit Diagnoses Not on filedocumented in this encounter Additional Health Concerns Infection Onset Date Last Indicated Resolved Time COVID - 19 08/01/2024 08/01/2024 08/01/2024 3:20 PM CDT Assessment Noted Time PHQ-9 Depression Total Score: 8 01/18/20 2:24 PM CDT documented as of this encounter Care Teams Engineering Group Manager Relationship Specialty Start Date End Date Justen Gale MD #2 [facility] [address] [place] [address] PCP - General Family Medicine 10/17/17 David Roberts APRN, NETTA #2 [place] [address] Nurse Practitioner Advanced Practice Nurse 01/31/22 Annel Rod MD #2 [facility] [address] [place] [id number] Consulting Physician Endocrinology 07/01/22 documented as of this encounter
--- OUTSIDE RECORDS SUMMARY | 2024-10-08 09:50 | XMS_ITS | Encounter Summary ---
Author Organization [facility] Address [address] [place] [address] Phone Care Team Providers Care Ice Guard Tester Name Role Phone Justen Gale MD Primary Care Provider David Roberts APRN, MAGNETOMETER OPERATOR Unavailable Annel Rod MD Unavailable Reason for Visit * Reason Onset Date Comments Abdominal Pain 10/08/2024 Encounter Details Date Type Department Care Team (Late st Contact Info) Description 10/08/2024 Nurse Triage [facility] Central Call Center [address] [place] [address] Justen Gale MD #[address] [address] Abdominal Pain Social History Tobacco Use Types Packs/Day Years Used Date Smoking Tobacco: Never Smokeless Tobacco: Never Alcohol Use Standard Drinks/Week Comments No 0 (1 standard drink = 0.6 oz pur e alcohol) [facility] Utilities Answer Date Recorded In the past 12 months has [employer], gas, oil, or water company threatened [...] How often do you attend chur or christian services? More than 4 times [...] - Questions 1-9 0 07/23 [facility] - Occupational Stress Questionnaire Answer Date [...] any time in the past 12 m [facility], were you homeless or living [...] PCP office. Per chart review, ed visit [facility] ASSESSMENT: Symptom Description / Location: Redness around belly button, redness is spreading. Abdomen is tender and swollen around belly button. Patient was seen in the ed on 10/03/24 at [facility]. Given clindamycin but she did not pick it up/start it. Patient wasn't happy with her experience at [facility]. Patient is diabeticand gives herself insulin in abdomen. Pain: 3/10 at rest. Can be 6 or 7/10 with movement Fever: Denies fever. Treatment / Response: none No reported treatment. RECOMMENDATION: Dispositions for Encounter:Go to ED Now (or PCP Triage). Reason for Disposition: MILD TO MODERATE constant pain lasting > 2 hours . Protocols Used: Abdominal Pain - Female-A-OH patient will go. Discussed utilizing [employer] to: send messages to providers - See [...] Visit [facility] - [facility]ocr[facility]ology - [place] #[address] [place] [address] Annel Rod MD #[address] [address] 11/13/2024 2:00 PM CDT [facility] [address] [place] [address] Angelito Alegria APRN, MAGNETOMETER OPERATOR #[address] [address] Discharge Disposition: Discharged to home or Selfcare documented as of this encounter Visit Diagnoses Not on filedocumented in this encounter Additional Health Concerns Assessment Noted Time PHQ-9 Depression Total Score: 0 08/02/19 25 1:09 PM CDT documented as of this encounter Care Teams Ice Guard Tester Relationship Specialty Start Date End Date Justen Gale MD #[address] [address] PCP - General Family Medicine 10/17/17 David Roberts APRN, NETTA #[address] [place] [address] Nurse Practitioner Advanced Practice Nurse 01/31/22 Annel Rod MD #[address] [place] [address] [address] Consulting Physician Endocrinology 07/01/22 documented as of this encounter
[2024-10-08 09:53] LABS: Basophils Percent Auto 0.3 % (0.2-1.2); Eosinophils Absolute Auto 0.1 K/mm3 (0-0.3); Eosinophils Percent Auto 0.8 % (0-4.4); Hematocrit 37.9 % (37.0-47.0); Hemoglobin 11.7 g/dL (12.0-15.0); Immature Granulocyte Absolute 0.08 K/mm3 (0.00-0.031); Immature Granulocyte Percent A 0.6 % (0-0.5); Lymphocytes Absolute Auto 2.61 K/mm3 (0.9-3.2); Lymphocytes Percent Auto 19.8 % (18.3-44.2); Mean Corpuscular HGB Conc 30.9 g/dl (32-36); Mean Platelet Volume 9.4 fl (7.4-10.4); Monocytes Percent Auto 7.4 % (2.6-8.5); Neutrophils Absolute Auto 9.4 K/mm3 (1.3-6.7); Neutrophils Percent Auto 71.1 % (45.5-73.1); Platelet Count Result 227 k/mm3 (150-375); Red Blood Count 4.03 M/mm3 (4.2-5.4); Red Cell Distribution Width 13.8 % (11.5-14.5); White Blood Count 13.2 K/mm3 (4.5-10.0)
[2024-10-08 10:05] LABS: INR 1.2; Prothrombin Time 15.2 Seconds (11.1-14.7)
[2024-10-08 10:06] LABS: Partial Thromboplastin Time 32.1 Seconds (22.3-36.8)
[2024-10-08 10:08] LABS: Alanine Aminotransferase 26 U/L (6-35); Albumin Level 3.5 g/dL (3.5-5.1); Alkaline Phosphatase 62 U/L (38-126); Anion Gap 5 mmol/L (4-12); Aspartate Amino Transferase 23 U/L (14-36); Bilirubin,Total 0.8 mg/dL (0.2-1.3); Blood Urea Nitrogen 19 mg/dL (7-17); CRP 8.2 mg/dL (<1.0); Calcium 9.2 mg/dL (8.4-10.2); Carbon Dioxide 27 mmol/L (22-30); Chloride 104 mmol/L (98-107); Estimated CRCL calculation 88 ml/min; Estimated Glomerular Filt Rate > 60; Glucose 236 mg/dL (65-110); Potassium 3.8 mmol/L (3.4-5.0); Sodium 136 mmol/L (137-145); Total Protein 7.1 g/dL (6.3-8.2)
[2024-10-08] MEDS: SODIUM CHLORIDE 0.9% IV 1,000 ML 999 ML IV CONT (10:11)
[2024-10-08] MEDS: ONDANSETRON INJ 4 MG/2 ML VIAL IV PUSH (10:13)
[2024-10-08] MEDS: MORPHINE SULFATE (*CRX) 4 MG/ML INJ IV PUSH ×5 (10:13→23:47)
[2024-10-08 10:28] LABS: Erythrocyte Sedimentation Rate 48 mm/hr (0-20)
--- NOTE | 2024-10-08 12:29 | P.HP_ITS ---
H&P: HPI History of Present Illness Date/Time: 10/08/24 12:29 Chief Complaint: Abdominal Rash Narrative: 69 y/o F with PMH of DM2, DVT/PE on anticoagulation, IBS, RLS, LUL on CPAP, CHF, breast cancer s/p bilateral mastectomy, polymyositis, and depression/anxiety presents here with an abdominal rash. The patient presents here from home for further evaluation of a rash/bruise to her lower abdomen. She 1st noticed the rash on Monday, 10/06. She states it initially started on the right side but has progressed to the left side. Now tender to palpation. She was initially evaluated at [place] [facility] on 10/06 and diagnosed with cellulitis. She was started on clindamycin 300 mg b.i.d.. She reports this medication has caused her nausea and vomiting and she has been unable to tolerate. She is also reporting hyperglycemia at home, however is currently on steroids due to recent diagnosis of polymyositis. She denies accompanying fever, body aches, or chills. Initial VS at presentation: 98.5? F, HR 88, RR 18, 133/64, and 95% on RA. ED workup showed: WBC 13.2, hemoglobin 11.7, INR 1.2, sodium 136, creatinine 0.66 and GFR >60, glucose 236, CRP 8.2. CT of the abdomen/pelvis showed likely improving cellulitis along the umbilicus in surrounding pannus, no abscess, and no acute intra-abdominal/pelvic process. Review of Systems Review of Systems: All systems reviewed & are unremarkable except as noted in HPI and below PMFSH Past Medical History Medical History Gastroparesis Obstructive sleep apnea on CPAP Restless leg syndrome Pulmonary embolism positive for coagulation workup Deep venous thrombosis Type 2 diabetes mellitus Throat pain in adult Oral ulcer Chronic anticoagulation Overactive bladder Irritable bowel syndrome Congestive heart failure Chronic back pain COVID-19 Collagenous colitis Morbid obesity Breast cancer Depression Anxiety Peripheral neuropathy Kidney stone Multiple thyroid nodules Surgical History Surgical History History of umbilical hernia repair History of colonoscopy Status post insertion of spinal cord stimulator History of cystoscopy History of ureter stent History of cholecystectomy History of bilateral mastectomy History of esophagogastroduodenoscopy (EGD) History of right oophorectomy History of total right knee replacement History of cardiac catheterization Reportedly negative for coronary artery disease. Family History Family History Mother Diabetes mellitus Acute myocardial infarction Cerebrovascular accident Hypertension Congestive heart failure Father Prostate carcinoma Sibling Breast cancer Acute myocardial infarction Chronic obstructive pulmonary disease Social History Social History Social History: Surrogate medical decision maker: Jimmie Onelrangel, spouse. Code status: Full code. Smoking packs per day: 0 Smoking cigarettes per day: 0.0 Years smoked: 2 Smoking pack-years: 0.00 Smoking status: Former smoker Second hand tobacco smoke exposure: Yes Alcohol intake: never Substance use: never Substance use type: does not use Do You Feel Safe in your Home?: Yes Lack of Transportation: No Lack of Food: Never True Current Housing: I Have Housing Concerned About Future Housing: No Difficulty Paying Gas/Electric Bills: No Difficulty Paying for Meds: No Currently Unemployed: No Education: Decline to Answer Difficulty w/ Childcare or Family Care: No Living arrangements: with family Additional occupation/education comments: Disabled. Spiritual care concerns: No Meds Home Medications and Allergies Home Medications ?Medication ?Instructions ?Recorded ?Confirmed ?Type exemestane 25 mg tablet 25 mg PO HS 01/06/20 10/08/24 History insulin glargine 100 unit/mL (3 40 unit subcut QAM 01/06/20 10/08/24 History mL) subcutaneous pen (Lantus Solostar U-100 Insulin) ropinirole 5 mg tablet 5 mg PO HS 01/06/20 10/08/24 History insulin lispro 100 unit/mL 32 unit subcut TID 03/19/22 10/08/24 History subcutaneous pen (Humalog KwikPen (U-100) Insulin) albuterol sulfate 90 mcg/actuation 1 inh inhalation QID PRN shortness 09/19/22 10/08/24 Rx aerosol inhaler of breath or wheezing #6.7 grams oxybutynin chloride 15 mg 15 mg PO DAILY 11/06/22 10/08/24 History tablet,extended release 24 hr gabapentin 300 mg capsule 300 mg PO TID 06/25/23 10/08/24 History hydrocodone 10 mg-acetaminophen 1 tablet PO Q6H PRN pain (scale 10/03/23 10/08/24 Rx 325 mg tablet score 7-10) #10 tabs ondansetron 4 mg disintegrating 4 mg PO Q8H PRN nausea and 08/14/24 10/08/24 Rx tablet vomiting #10 tabs clobetasol 0.05 % topical gel 1 applic topical DAILY 2 weeks #15 09/27/24 10/08/24 Rx grams mupirocin 2 % topical ointment 1 applic topical BID 30 days #15 09/27/24 10/08/24 Rx (Centany) grams omeprazole 40 mg capsule,delayed 40 mg PO DAILY 30 days #30 caps 09/27/24 10/08/24 Rx release lidocaine 5 % topical ointment 1 applic topical TID PRN skin 10/06/24 10/08/24 Rx irritation #50 grams prednisone 10 mg tablet 10 mg PO DAILY 10/08/24 10/08/24 History rivaroxaban 20 mg tablet (Xarelto) 20 mg PO 0900 10/08/24 10/08/24 History Allergies Allergy/AdvReac Type Severity Reaction Status Date / Time ceftriaxone Allergy Severe SOB Verified 10/08/24 14:31 cephalexin Allergy Severe Difficulty Verified 10/08/24 14:31 Breathing Cephalosporins Allergy Severe Difficulty Verified 10/08/24 14:31 Breathing lorazepam Allergy Severe Swelling Verified 10/08/24 14:31 trazodone Allergy Severe Swelling Verified 10/08/24 14:31 of Lip/Tongue/Throat metoclopramide Allergy Intermediate Other Verified 10/08/24 14:31 chlorhexidine Allergy Mild BLISTERING Verified 10/08/24 14:31 levofloxacin Allergy Mild Hives / Verified 10/08/24 14:31 Red Face ketorolac Allergy Itching Verified 10/08/24 14:31 latex Allergy Rash Verified 10/08/24 14:31 meropenem Allergy Rash Verified 10/08/24 14:31 nitrofurantoin Allergy Itching Verified 10/08/24 14:31 sulfamethoxazole (From Allergy Itching Verified 10/08/24 14:31 Sulfamethoxazole-Trimethoprim) trimethoprim (From Allergy Itching Verified 10/08/24 14:31 Sulfamethoxazole-Trimethoprim) clindamycin AdvReac Intermediate Nausea and Verified 10/08/24 14:31 Vomiting oxycodone AdvReac Mild Vomiting Verified 10/08/24 14:31 amlodipine AdvReac Swelling Verified 10/08/24 14:31 lisinopril AdvReac Swelling Verified 10/08/24 14:31 pregabalin AdvReac Swelling Verified 10/08/24 14:31 reslizumab AdvReac Unknown Verified 10/08/24 14:31 Vital Signs Vital Signs - 24 hr 10/08/24 08:13 10/08/24 08:19 10/08/24 08:31 Temperature 98.5 F Pulse Rate 88 81 84 Respiratory Rate 18 15 16 Blood Pressure 133/64 133/64 126/60 Pulse Oximetry 95 96 95 Oxygen Delivery Room Air 10/08/24 09:01 10/08/24 09:32 Temperature Pulse Rate 79 74 Respiratory Rate 15 16 Blood Pressure 124/65 143/74 H Pulse Oximetry 95 98 Oxygen Delivery Exam Const: General: no acute distress and uncomfortable (Due to abdominal discomfort) Other: , female, elderly, obese body habitus, nontoxic appearance HENMT: Face/Nose/Sinus: Normal nares present Mouth: Yes moist mucous membranes Eyes: General: appearance normal, both eyes and all related structures Sclera: sclerae normal Pupils: Equal, round and reactive pupils present EOM: EOMs intact bilaterally Resp: Effort & Inspection: normal respiratory effort Auscultation: clear to auscultation bilaterally Cardio: Rate: regular rate Rhythm: regular rhythm Other: S1-S2 present without murmur, rub, ectopy GI: Other: Tender in the left mid and right mid quadrants. Abdomen remains soft, normoactive bowel sounds in all quadrants. Nondistended. Skin: Other: erythema and ecchymosis to the left side of the abdomen lateral to her umbilicus. erythema resolved to right side of her abdomen but has faint ecchymosis. Neuro: Speech: normal speech Motor exam (neuro): 5/5 motor strength present throughout Sensory Exam: normal sensation Other: A&O x4 Extrem: General: normal to inspection Psych: Mental Status: mental status grossly normal Affect: normal affect Other: Good insight and judgment, pleasant H&P: Results Labs Labs: Short CBC 10/08/24 Range/Units 09:48 WBC 13.2 H (4.5-10.0) K/mm3 Hgb 11.7 L (12.0-15.0) g/dL Hct 37.9 (37.0-47.0) % Plt Count 227 (150-375) k/mm3 BMP 10/08/24 09:48 Sodium 136 L Potassium 3.8 Chloride 104 Carbon Dioxide 27 BUN 19 H Creatinine 0.66 L Glucose 236 H Calcium 9.2 Liver Function 10/08/24 Range/Units 09:48 Total Bilirubin 0.8 (0.2-1.3) mg/dL AST 23 (14-36) U/L ALT 26 (6-35) U/L Alkaline Phosphatase 62 (38-126) U/L Albumin 3.5 (3.5-5.1) g/dL Assessment and Plan Assessment and plan (1) Abdominal wall cellulitis: Code(s): L03.311 - Cellulitis of abdominal wall Status: Acute Assessment and Plan: - CT abdomen/pelvis (10/08): 1. Likely improving cellulitis along the umbilicus and surrounding pannus. No abscess. 2. No acute intra-abdominal/pelvic process. - started on oral clindamycin on 10/07, unable to tolerate due to nausea and vomiting. see full allergy list. - started on vancomycin on 10/08, spoke with ID pharmacist. will trial toleration of Linezolid. Spoke with patient this evening, tolerated well thus far. - antipyretic and analgesics p.r.n. - no open wounds for culture - monitor for clinical improvement (2) DM type 2 (diabetes mellitus, type 2): Qualifiers: Diabetes mellitus complication status: with hyperglycemia Diabetes mellitus mcc insulin use: with mcc use Qualified Code(s): E11.65 - Type 2 diabetes mellitus with hyperglycemia; Z79.4 - skilled nursing (current) use of insulin Code(s): E11.9 - Type 2 diabetes mellitus without complications Status: Acute Assessment and Plan: - hypoglycemia protocol - POC blood glucose ACHS - home medication: NovoLog 32 units SQ t.i.d., Lantus 40 units q.a.m. - correct regimen ordered - high dose TIDWM and HS, based on BMI. Patient also on steroids. - A1C 8.2% in 2023, update (3) LUL on CPAP: Code(s): G47.33 - Obstructive sleep apnea (adult) (pediatric); Z99.89 - Dependence on other enabling machines and devices Status: Acute Assessment and Plan: - continue home CPAP Plan Diet: Diabetic GI Prophylaxis: Not currently indicated DVT Prophylaxis: Xarelto IV fluids: 1L bolus Lines/Tubes: Peripheral IV Code Status: Full code Quality VTE Prophylaxis VTE prophylaxis: pharmacologic ordered Hospitalist MIPS Advance Care Plan I have confirmed that the patient's Advanced Care Plan is present, code status is documented, or surrogate decision maker is listed in patient medical record.: Yes Medication Reconciliation I have utilized all available resources to obtain, update and review the patients current medications (includes all prescriptions, OTC, herbals, cannabis, and nutritional supplements).: Yes
[2024-10-08] MEDS: VANCOMYCIN 1,500 MG/NS 500 ML BAG 250 MG IVPB (12:47)
--- NOTE | 2024-10-08 14:13 | ADMGEN ---
This patient, Karly Marques, was admitted to [facility] Surg Room 316-02. Patient/family oriented to hospital policies and general routines including ID bracelet, bed and alarms, visiting hours, pain management, procedures, bathroom and other care routines, personal items, smoking policy, room service/diet, and visiting hours. Information on how to activate the Rapid Response Team has been discussed. Patient/Family are encouraged to report perceived risks to care and to ask questions if they do not understand what they are told or what they should do.
[2024-10-08 15:07] LABS: Glucose Point of Care 181 mg/dl (65-105)
[2024-10-08 16:32] LABS: Glucose Point of Care 213 mg/dl (65-105)
[2024-10-08] MEDS: LINEZOLID 600 MG/300 ML 600 MG/300 ML SOLN 300 MG IVPB (17:42)
[2024-10-08] MEDS: INSULIN ASPART (*BKC) 100 UNITS/ML SUB-Q ×2 (17:47→21:12)
[2024-10-08 20:39] LABS: Glucose Point of Care 292 mg/dl (65-105)
[2024-10-09] VITALS (7 sets, daily range): BP systolic 126–160; BP diastolic 66–91; PULSE 64–72; RESP 14–21; TEMP 35.9–36.6; O2SAT 96–98
[2024-10-09] MEDS: MORPHINE SULFATE (*CRX) 4 MG/ML INJ IV PUSH ×3 (04:19→21:07)
[2024-10-09] MEDS: LINEZOLID 600 MG/300 ML 600 MG/300 ML SOLN 300 MG IVPB ×2 (05:29→17:25)
[2024-10-09] MEDS: HYDROcodone/acetaminophen (*CRX) 10-325 MG TABLET 1 TAB PO ×2 (05:47→09:43)
[2024-10-09 06:04] LABS: Basophils Percent Auto 0.3 % (0.2-1.2); Eosinophils Absolute Auto 0.3 K/mm3 (0-0.3); Eosinophils Percent Auto 2.2 % (0-4.4); Hematocrit 38.8 % (37.0-47.0); Hemoglobin 11.8 g/dL (12.0-15.0); Immature Granulocyte Absolute 0.04 K/mm3 (0.00-0.031); Immature Granulocyte Percent A 0.3 % (0-0.5); Lymphocytes Absolute Auto 2.38 K/mm3 (0.9-3.2); Lymphocytes Percent Auto 20.2 % (18.3-44.2); Mean Corpuscular HGB Conc 30.4 g/dl (32-36); Mean Corpuscular Volume 95.3 fl (80-100); Mean Platelet Volume 9.4 fl (7.4-10.4); Monocytes Absolute Auto 0.8 K/mm3 (0.1-0.6); Neutrophils Absolute Auto 8.3 K/mm3 (1.3-6.7); Platelet Count Result 235 k/mm3 (150-375); Red Blood Count 4.07 M/mm3 (4.2-5.4); Red Cell Distribution Width 13.9 % (11.5-14.5); White Blood Count 11.8 K/mm3 (4.5-10.0)
[2024-10-09 06:37] LABS: Anion Gap 4 mmol/L (4-12); Blood Urea Nitrogen 13 mg/dL (7-17); Calcium 8.9 mg/dL (8.4-10.2); Carbon Dioxide 27 mmol/L (22-30); Chloride 103 mmol/L (98-107); Estimated CRCL calculation 96 ml/min; Estimated Glomerular Filt Rate > 60; Glucose 164 mg/dL (65-110); Potassium 4.3 mmol/L (3.4-5.0); Sodium 134 mmol/L (137-145)
[2024-10-09 06:52] LABS: Hemoglobin A1C 8.8 % (<5.7)
--- NOTE | 2024-10-09 07:20 | P.PNIM_ITS ---
Progress Note: A&P Assessment and Plan (1) Abdominal wall cellulitis: Code(s): L03.311 - Cellulitis of abdominal wall Status: Acute Assessment and Plan: * CT abdomen/pelvis (10/08): 1. Likely improving cellulitis along the umbilicus and surrounding pannus. No abscess. 2. No acute intra-abdominal/pelvic process. * started on oral clindamycin on 10/07, unable to tolerate due to nausea and vomiting. see full allergy list. * started on vancomycin on 10/08, spoke with [facility] pharmacist. will trial toleration of Linezolid. Spoke with patient this evening, tolerated well thus far. * antipyretic and analgesics p.r.n. 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 - correct regimen ordered - high dose TIDWM and HS, based on BMI. Patient also on steroids. - A1C 8.2% in 2023, update (3) LUL on CPAP: Code(s): G47.33 - Obstructive sleep apnea (adult) (pediatric); Z99.89 - Dependence on other enabling machines and devices Status: Acute Assessment and Plan: - continue home CPAP Plan Diet: Diabetic GI Prophylaxis: Not currently indicated DVT Prophylaxis: Xarelto IV fluids: 1L bolus Lines/Tubes: Peripheral IV Code Status: Full code Subjective Date/time seen: 10/09/24 07:20 Interval history: 69 y/o F with PMH of DM2, DVT/PE on anticoagulation, IBS, RLS, LUL on CPAP, CHF, breast cancer s/p bilateral mastectomy, polymyositis, and depression/anxiety presents here with an abdominal rash. 10/09/2024 Patient sitting comfortably in bed at time of exam. Pt reports swelling and erythema has improved greatly. Endorses slight improvement in pain but states it is mostly the same as it was yesterday. Will continue Linezolid. Continue monitoring for clinical improvement. Review of Systems Review of Systems: All systems reviewed & are unremarkable except as noted in HPI and below Exam Narrative: erythema and ecchymnoysis to the left side of the abdomen lateral to her umbiliucs. erythema resolved to right side of her abdomen but has faint ecchymosysis. Const: General: no acute distress and uncomfortable (Due to abdominal discomfort) Other: , female, elderly, obese body habitus, nontoxic appearance HENMT: Face/Nose/Sinus: Normal nares present Mouth: Yes moist mucous membranes Eyes: General: appearance normal, both eyes and all related structures Sclera: sclerae normal Pupils: Equal, round and reactive pupils present EOM: EOMs intact bilaterally Resp: Effort & Inspection: normal respiratory effort Auscultation: clear to auscultation bilaterally Cardio: Rate: regular rate Rhythm: regular rhythm Other: S1-S2 present without murmur, rub, ectopy GI: Other: Tender in the left mid and right mid quadrants. Abdomen remains soft, normoactive bowel sounds in all quadrants. Nondistended. Skin: Other: erythema and ecchymosis to the left side of the abdomen lateral to her umbilicus. erythema resolved to right side of her abdomen but has faint ecchymosis. Neuro: Cranial nerves: Yes Equal, round and reactive pupils present Speech: normal speech Motor exam (neuro): 5/5 motor strength present throughout Sensory Exam: normal sensation Other: A&O x4 Extrem: General: normal to inspection Psych: Mental Status: mental status grossly normal Affect: normal affect Other: Good insight and judgment, pleasant Objective Data Vital Signs Vital Signs: Vital Signs - 24 hr 10/08/24 08:13 10/08/24 08:19 10/08/24 08:31 Temperature 98.5 F Pulse Rate 88 81 84 Respiratory Rate 18 15 16 Blood Pressure 133/64 133/64 126/60 Pulse Oximetry 95 96 95 Oxygen Delivery Room Air 10/08/24 09:01 10/08/24 09:32 10/08/24 11:05 Temperature Pulse Rate 79 74 82 Respiratory Rate 15 16 18 Blood Pressure 124/65 143/74 H 157/87 H Pulse Oximetry 95 98 96 Oxygen Delivery 10/08/24 11:30 10/08/24 12:30 10/08/24 13:30 Temperature Pulse Rate 81 81 73 Respiratory Rate 18 18 16 Blood Pressure 153/86 H 141/90 H 102/65 Pulse Oximetry 96 97 95 Oxygen Delivery 10/08/24 14:00 10/08/24 21:44 10/09/24 00:00 Temperature 96.9 F L 98.1 F Pulse Rate 73 73 Respiratory Rate 16 20 14 Blood Pressure 136/76 134/80 Pulse Oximetry 100 97 97 Oxygen Delivery CPAP 10/09/24 01:40 10/09/24 05:52 Temperature 97.8 F Pulse Rate 68 Respiratory Rate 14 18 Blood Pressure 126/72 Pulse Oximetry 96 Oxygen Delivery CPAP Intake/Output Intake/Output: Intake & Output 10/06/24 10/07/24 10/08/24 10/09/24 23:59 23:59 23:59 23:59 Intake Total 1336 300 Balance 1336 300 Meds/Results Medications: Active Medications Generic Name Dose Route Start Last Admin Trade Name Freq PRN Reason Stop Dose Admin Acetaminophen 650 mg 10/08/24 12:30 Acetaminophen 325 Mg Tablet PO Q4H PRN Mild Pain (1-3) or Fever Hydrocodone Bitart/Acetaminophen 1 tab 10/08/24 21:05 10/09/24 05:47 Hydrocodone/Acetaminophen (*Crx) 10-325 Mg Tablet PO 1 tab Q6H PRN Administration Pain Rated 4-6 Albuterol 1 puff 10/08/24 21:05 Albuterol Sulfate (*Sp) Aerosol 1 Puff INHALATION QIDRT PRN shortness of breath or wheezing Clobetasol Propionate 1 applic 10/09/24 09:00 Clobetasol Propionate 0.05% Cream 30 Gm TOPICAL DAILY [facility] Dextrose 12.5 gm 10/08/24 12:30 Dextrose 50% 25 Gm/50 Ml Syringe IV PUSH PRN PRN Hypoglycemia Protocol Gabapentin 300 mg 10/09/24 09:00 Gabapentin 300 Mg Capsule PO TID [facility] Glucagon 1 mg 10/08/24 12:30 Glucagon For Inj 1 Mg Vial IM PRN PRN Hypoglycemia Protocol Glucose 15 gm 10/08/24 12:30 Glucose Oral Gel 15 Gm Of Glucse In 37.5 Gm Tube PO PRN PRN Hypoglycemia Protocol Dextrose 1,000 mls @ 100 mls/hr 10/08/24 12:30 Dextrose 5% 1,000 Ml IVPB PRN PRN Hypoglycemia Protocol Linezolid 600 mg in 300 mls @ 300 mls/hr 10/09/24 06:00 10/09/24 06:58 Zyvox IVPB Infused Q12H [facility] Infusion Insulin Aspart 4 - 8 units 10/08/24 17:00 10/08/24 17:47 Insulin Aspart (*Bkc) 100 Units/Ml SUB-Q 4 units TIDWM [facility] Administration Protocol Insulin Aspart 2 - 4 units 10/08/24 21:00 10/08/24 21:12 Insulin Aspart (*Bkc) 100 Units/Ml SUB-Q 2 units HS [facility] Administration Protocol Insulin Aspart 32 units 10/09/24 09:00 Insulin Aspart (*Bkc) 100 Units/Ml SUB-Q TID [facility] Insulin Glargine 40 units 10/09/24 09:00 Insulin Glargine (*Bkc) 100 Units/Ml SUB-Q QAM [facility] Miscellaneous Information 0 each 10/08/24 00:01 10/09/24 03:58 Exemestane 25mg Nonform Can Pt Bring From Home? XX 11/07/24 00:00 Not Given CLARIFY [facility] Morphine Sulfate 4 mg 10/08/24 12:30 10/09/24 04:19 Morphine Sulfate (*Crx) 4 Mg/Ml Inj IV PUSH 4 mg Q2H PRN Administration Pain Rated 7-10 Mupirocin 1 applic 10/09/24 09:00 Mupirocin 2% Oint 22 Gm Tube TOPICAL BID [facility] Non-Formulary Medication 25 mg 10/09/24 21:00 Exemestane PO 11/08/24 20:59 HS [facility] Ondansetron HCl 4 mg 10/08/24 12:30 Ondansetron Inj 4 Mg/2 Ml Vial IV PUSH Q4H PRN Nausea Oxybutynin Chloride 15 mg 10/09/24 09:00 Oxybutynin Chloride Xl 5 Mg Tab.Er.24 PO DAILY [facility] Pantoprazole Sodium 40 mg 10/09/24 09:00 Pantoprazole 40 Mg Tablet PO Q12HR [facility] Prednisone 10 mg 10/09/24 09:00 Prednisone 10 Mg Tablet PO DAILY [facility] Rivaroxaban 20 mg 10/09/24 09:00 Rivaroxaban 20 Mg Tablet PO DAILY [facility] Ropinirole HCl 5 mg 10/09/24 21:00 Ropinirole Hcl 1 Mg Tablet PO [facility] Radiology Results: ITS Impressions Abdomen/Pelvis CT 10/08/24 10:55 IMPRESSION: 1. Likely improving cellulitis along the umbilicus and surrounding pannus. No abscess. 2. No acute intra-abdominal/pelvic process. Labs Labs: Laboratory Results - last 24 hr 10/08/24 10/08/24 10/08/24 09:48 15:05 16:28 WBC 13.2 H RBC 4.03 L Hgb 11.7 L Hct 37.9 MCV 94.0 MCH 29.0 MCHC 30.9 L RDW 13.8 Plt Count 227 MPV 9.4 Immature Gran % (Auto) 0.6 H Neut % (Auto) 71.1 Lymph % (Auto) 19.8 Mccone % (Auto) 7.4 Eos % (Auto) 0.8 Baso % (Auto) 0.3 Lymph # (Auto) 2.61 Mccone # (Auto) 1.0 H Eos # (Auto) 0.1 Baso # (Auto) 0.0 Abs Immat Gran (auto) 0.08 H Absolute Neuts (auto) 9.4 H Absolute Nucleated RBC 0.000 Nucleated RBC % 0.0 ESR 48 H PT 15.2 H INR 1.2 APTT 32.1 Sodium 136 L Potassium 3.8 Chloride 104 Carbon Dioxide 27 Anion Gap 5 BUN 19 H Creatinine 0.66 L Estim Creat Clear Calc 88 Estimated GFR > 60 Glucose 236 H POC Capillary Glucose 181 H 213 H Hemoglobin A1c Calcium 9.2 Total Bilirubin 0.8 AST 23 ALT 26 Alkaline Phosphatase 62 C-Reactive Protein 8.2 H Total Protein 7.1 Albumin 3.5 10/08/24 10/09/24 19:50 05:53 WBC 11.8 H RBC 4.07 L Hgb 11.8 L Hct 38.8 MCV 95.3 MCH 29.0 MCHC 30.4 L RDW 13.9 Plt Count 235 MPV 9.4 Immature Gran % (Auto) 0.3 Neut % (Auto) 70.0 Lymph % (Auto) 20.2 Mccone % (Auto) 7.0 Eos % (Auto) 2.2 Baso % (Auto) 0.3 Lymph # (Auto) 2.38 Mccone # (Auto) 0.8 H Eos # (Auto) 0.3 Baso # (Auto) 0.0 Abs Immat Gran (auto) 0.04 H Absolute Neuts (auto) 8.3 H Absolute Nucleated RBC 0.000 Nucleated RBC % 0.0 ESR PT INR APTT Sodium 134 L Potassium 4.3 Chloride 103 Carbon Dioxide 27 Anion Gap 4 BUN 13 D Creatinine 0.61 L Estim Creat Clear Calc 96 Estimated GFR > 60 Glucose 164 H POC Capillary Glucose 292 H Hemoglobin A1c 8.8 H Calcium 8.9 Total Bilirubin AST ALT Alkaline Phosphatase C-Reactive Protein Total Protein Albumin Quality VTE Prophylaxis VTE prophylaxis: pharmacologic ordered
[2024-10-09 07:51] LABS: Glucose Point of Care 183 mg/dl (65-105)
[2024-10-09] MEDS: PANTOPRAZOLE 40 MG TABLET PO ×2 (09:01→21:12)
[2024-10-09] MEDS: predniSONE 10 MG TABLET PO (09:01)
[2024-10-09] MEDS: oxyBUTYnin CHLORIDE XL 5 MG TAB.ER.24 15 MG PO (09:01)
[2024-10-09] MEDS: RIVAROXABAN 20 MG TABLET PO (09:01)
[2024-10-09] MEDS: GABAPENTIN 300 MG CAPSULE PO ×3 (09:01→17:25)
[2024-10-09] MEDS: INSULIN ASPART (*BKC) 100 UNITS/ML 32 UNITS SUB-Q ×2 (09:02→17:28)
[2024-10-09] MEDS: INSULIN GLARGINE (*BKC) 100 UNITS/ML 40 UNITS SUB-Q (09:03)
[2024-10-09 11:57] LABS: Glucose Point of Care 93 mg/dl (65-105)
[2024-10-09 17:10] LABS: Glucose Point of Care 222 mg/dl (65-105)
[2024-10-09] MEDS: INSULIN ASPART (*BKC) 100 UNITS/ML SUB-Q (17:28)
[2024-10-09 18:56] LABS: Glucose Point of Care 270 mg/dl (65-105)
[2024-10-09 21:12] LABS: Glucose Point of Care 176 mg/dl (65-105)
[2024-10-09] MEDS: rOPINIRole HCL 1 MG TABLET 5 MG PO (21:12)
[2024-10-10 01:56] VITALS: PULSE 64; RESP 19; O2SAT 98
[2024-10-10] MEDS: MORPHINE SULFATE (*CRX) 4 MG/ML INJ IV PUSH ×5 (02:13→21:46)
[2024-10-10 02:39] LABS: Glucose Point of Care 98 mg/dl (65-105)
[2024-10-10] MEDS: LINEZOLID 600 MG/300 ML 600 MG/300 ML SOLN 150 MG IVPB (05:45)
[2024-10-10 06:00] VITALS: BP 116/58; PULSE 63; RESP 19; TEMP 36.4; O2SAT 95
--- NOTE | 2024-10-10 07:10 | P.PNIM_ITS ---
Progress Note: A&P Assessment and Plan (1) Abdominal wall cellulitis: Code(s): L03.311 - Cellulitis of abdominal wall Status: Acute Assessment and Plan: * CT abdomen/pelvis (10/08): 1. Likely improving cellulitis along the umbilicus and surrounding pannus. No abscess. 2. No acute intra-abdominal/pelvic process. * started on oral clindamycin on 10/07, unable to tolerate due to nausea and vomiting. see full allergy list. * started on vancomycin on 10/08, spoke with [facility] pharmacist. will trial toleration of Linezolid. Spoke with patient this evening, tolerated well thus far. * antipyretic and analgesics p.r.n. * no open wounds for culture * Continue monitoring for clinical improvement * Tolerating Linezolid: continue * Transition to Oral Linezolid tonight (2) DM type 2 (diabetes mellitus, type 2): Qualifiers: Diabetes mellitus complication status: with hyperglycemia Diabetes mellitus chcf insulin use: with exterminator helper use Qualified Code(s): E11.65 - Type 2 diabetes mellitus with hyperglycemia; Z79.4 - buttermaker (current) use of insulin Code(s): E11.9 - Type 2 diabetes mellitus without complications Status: Acute Assessment and Plan: - hypoglycemia protocol - POC blood glucose ACHS - home medication: NovoLog 32 units SQ t.i.d., Lantus 40 units q.a.m. - correct regimen ordered - high dose TIDWM and HS, based on BMI. Patient also on steroids. - A1C 8.2% in 2023, update (3) LUL on CPAP: Code(s): G47.33 - Obstructive sleep apnea (adult) (pediatric); Z99.89 - Dependence on other enabling machines and devices Status: Acute Assessment and Plan: - continue home CPAP Plan Diet: Diabetic GI Prophylaxis: Not currently indicated DVT Prophylaxis: Xarelto IV fluids: 1L bolus Lines/Tubes: Peripheral IV Code Status: Full code Subjective Date/time seen: 10/10/24 07:10 Interval history: 69 y/o F with PMH of DM2, DVT/PE on anticoagulation, IBS, RLS, LUL on CPAP, CHF, breast cancer s/p bilateral mastectomy, polymyositis, and depression/anxiety presents here with an abdominal rash. 10/10/2024 Patient sitting comfortably in bed at time of exam.Swelling and erythema greatly improved. Still painful to touch but pt reports it also feels better. We will transition to oral Linezolid tonight with plans for hopeful discharge tomorrow. No chest pain, SOB, n/v, or urinary/bowel changes. Vitals and bloodwork stable. Review of Systems Review of Systems: All systems reviewed & are unremarkable except as noted in HPI and below Exam Narrative: erythema and ecchymnoysis to the left side of the abdomen lateral to her umbiliucs. erythema resolved to right side of her abdomen but has faint ecchymosysis. Const: General: no acute distress and uncomfortable (Due to abdominal discomfort) Other: , female, elderly, obese body habitus, nontoxic appearance HENMT: Face/Nose/Sinus: Normal nares present Mouth: Yes moist mucous membranes Eyes: General: appearance normal, both eyes and all related structures Sclera: sclerae normal Pupils: Equal, round and reactive pupils present EOM: EOMs intact bilaterally Resp: Effort & Inspection: normal respiratory effort Auscultation: clear to auscultation bilaterally Cardio: Rate: regular rate Rhythm: regular rhythm Other: S1-S2 present without murmur, rub, ectopy GI: Other: Tender in the left mid and right mid quadrants. Abdomen remains soft, normoactive bowel sounds in all quadrants. Nondistended. Skin: Other: erythema and ecchymosis to the left side of the abdomen lateral to her umbilicus. erythema resolved to right side of her abdomen but has faint ecchymosis. Pain improving, only with deep palpation of abdominal wall on the left. Neuro: Cranial nerves: Yes Equal, round and reactive pupils present Speech: normal speech Motor exam (neuro): 5/5 motor strength present throughout Sensory Exam: normal sensation Other: A&O x4 Extrem: General: normal to inspection Psych: Mental Status: mental status grossly normal Affect: normal affect Other: Good insight and judgment, pleasant Objective Data Vital Signs Vital Signs: Vital Signs - 24 hr 10/09/24 09:00 10/09/24 14:00 10/09/24 20:00 Temperature 96.7 F L Pulse Rate 72 64 Respiratory Rate 18 19 Blood Pressure 160/91 H Pulse Oximetry 98 98 Oxygen Delivery Room Air Room Air 10/09/24 21:59 10/09/24 22:30 10/10/24 01:56 Temperature 96.9 F L Pulse Rate 64 70 64 Respiratory Rate 19 21 H 19 Blood Pressure 145/66 H Pulse Oximetry 98 98 98 Oxygen Delivery CPAP CPAP 10/10/24 06:00 Temperature 97.5 F L Pulse Rate 63 Respiratory Rate 19 Blood Pressure 116/58 L Pulse Oximetry 95 Oxygen Delivery Intake/Output Intake/Output: Intake & Output 10/07/24 10/08/24 10/09/24 10/10/24 23:59 23:59 23:59 23:59 Intake Total 1336 1298 450 Balance 1336 1298 450 Meds/Results Medications: Active Medications Generic Name Dose Route Start Last Admin Trade Name Freq PRN Reason Stop Dose Admin Acetaminophen 650 mg 10/08/24 12:30 Acetaminophen 325 Mg Tablet PO Q4H PRN Mild Pain (1-3) or Fever Hydrocodone Bitart/Acetaminophen 1 tab 10/08/24 21:05 10/09/24 09:43 Hydrocodone/Acetaminophen (*Crx) 10-325 Mg Tablet PO 1 tab Q6H PRN Administration Pain Rated 4-6 Albuterol 1 puff 10/08/24 21:05 Albuterol Sulfate (*Sp) Aerosol 1 Puff INHALATION QIDRT PRN shortness of breath or wheezing Clobetasol Propionate 1 applic 10/09/24 09:00 10/09/24 09:11 Clobetasol Propionate 0.05% Cream 30 Gm TOPICAL Not Given DAILY [facility] Dextrose 12.5 gm 10/08/24 12:30 Dextrose 50% 25 Gm/50 Ml Syringe IV PUSH PRN PRN Hypoglycemia Protocol Gabapentin 300 mg 10/09/24 09:00 10/09/24 17:25 Gabapentin 300 Mg Capsule PO 300 mg TID [facility] Administration Glucagon 1 mg 10/08/24 12:30 Glucagon For Inj 1 Mg Vial IM PRN PRN Hypoglycemia Protocol Glucose 15 gm 10/08/24 12:30 Glucose Oral Gel 15 Gm Of Glucse In 37.5 Gm Tube PO PRN PRN Hypoglycemia Protocol Dextrose 1,000 mls @ 100 mls/hr 10/08/24 12:30 Dextrose 5% 1,000 Ml IVPB PRN PRN Hypoglycemia Protocol Linezolid 600 mg in 300 mls @ 300 mls/hr 10/09/24 06:00 10/10/24 05:45 Zyvox IVPB 150 mls/hr Q12H [facility] Administration Insulin Aspart 4 - 8 units 10/08/24 17:00 10/09/24 17:28 Insulin Aspart (*Bkc) 100 Units/Ml SUB-Q 4 units TIDWM [facility] Administration Protocol Insulin Aspart 2 - 4 units 10/08/24 21:00 10/09/24 21:12 Insulin Aspart (*Bkc) 100 Units/Ml SUB-Q Not Given HS [facility] Protocol Insulin Aspart 32 units 10/09/24 09:00 10/09/24 17:28 Insulin Aspart (*Bkc) 100 Units/Ml SUB-Q 32 units TID [facility] Administration Insulin Glargine 40 units 10/09/24 09:00 10/09/24 09:03 Insulin Glargine (*Bkc) 100 Units/Ml SUB-Q 40 units QAM [facility] Administration Miscellaneous Information 0 each 10/08/24 00:01 10/10/24 04:51 Exemestane 25mg Nonform Can Pt Bring From Home? XX 11/07/24 00:00 Not Given CLARIFY [facility] Morphine Sulfate 4 mg 10/08/24 12:30 10/10/24 06:06 Morphine Sulfate (*Crx) 4 Mg/Ml Inj IV PUSH 4 mg Q2H PRN Administration Pain Rated 7-10 Mupirocin 1 applic 10/09/24 09:00 10/09/24 17:25 Mupirocin 2% Oint 22 Gm Tube TOPICAL Not Given BID [facility] Non-Formulary Medication 25 mg 10/09/24 21:00 Exemestane PO 11/08/24 20:59 HS [facility] Ondansetron HCl 4 mg 10/08/24 12:30 Ondansetron Inj 4 Mg/2 Ml Vial IV PUSH Q4H PRN Nausea Oxybutynin Chloride 15 mg 10/09/24 09:00 10/09/24 09:01 Oxybutynin Chloride Xl 5 Mg Tab.Er.24 PO 15 mg DAILY [facility] Administration Pantoprazole Sodium 40 mg 10/09/24 09:00 10/09/24 21:12 Pantoprazole 40 Mg Tablet PO 40 mg Q12HR [facility] Administration Prednisone 10 mg 10/09/24 09:00 10/09/24 09:01 Prednisone 10 Mg Tablet PO 10 mg DAILY [facility] Administration Rivaroxaban 20 mg 10/09/24 09:00 10/09/24 09:01 Rivaroxaban 20 Mg Tablet PO 20 mg DAILY [facility] Administration Ropinirole HCl 5 mg 10/09/24 21:00 10/09/24 21:12 Ropinirole Hcl 1 Mg Tablet PO 5 mg HS [facility] Administration Radiology Results: ITS Impressions Abdomen/Pelvis CT 10/08/24 10:55 IMPRESSION: 1. Likely improving cellulitis along the umbilicus and surrounding pannus. No abscess. 2. No acute intra-abdominal/pelvic process. Labs Labs: Laboratory Results - last 24 hr 10/09/24 10/09/24 10/09/24 07:35 11:43 16:59 POC Capillary Glucose 183 H 93 222 H 10/09/24 10/09/24 10/10/24 18:27 21:10 02:36 POC Capillary Glucose 270 H 176 H 98 Quality VTE Prophylaxis VTE prophylaxis: pharmacologic ordered
[2024-10-10 08:05] LABS: Glucose Point of Care 180 mg/dl (65-105)
[2024-10-10] MEDS: HYDROcodone/acetaminophen (*CRX) 10-325 MG TABLET 1 TAB PO ×2 (08:12→23:16)
[2024-10-10 08:42] LABS: Basophils Percent Auto 0.3 % (0.2-1.2); Eosinophils Absolute Auto 0.2 K/mm3 (0-0.3); Eosinophils Percent Auto 1.8 % (0-4.4); Hematocrit 42.4 % (37.0-47.0); Hemoglobin 12.7 g/dL (12.0-15.0); Immature Granulocyte Absolute 0.09 K/mm3 (0.00-0.031); Immature Granulocyte Percent A 0.7 % (0-0.5); Lymphocytes Absolute Auto 2.41 K/mm3 (0.9-3.2); Lymphocytes Percent Auto 17.7 % (18.3-44.2); Mean Corpuscular Volume 96.8 fl (80-100); Mean Platelet Volume 10.6 fl (7.4-10.4); Monocytes Absolute Auto 0.9 K/mm3 (0.1-0.6); Monocytes Percent Auto 6.8 % (2.6-8.5); Neutrophils Absolute Auto 9.9 K/mm3 (1.3-6.7); Neutrophils Percent Auto 72.7 % (45.5-73.1); Platelet Count Result 212 k/mm3 (150-375); Red Blood Count 4.38 M/mm3 (4.2-5.4); Red Cell Distribution Width 13.5 % (11.5-14.5); White Blood Count 13.6 K/mm3 (4.5-10.0)
[2024-10-10 09:05] LABS: Alanine Aminotransferase 25 U/L (6-35); Albumin Level 3.3 g/dL (3.5-5.1); Alkaline Phosphatase 56 U/L (38-126); Anion Gap 6 mmol/L (4-12); Aspartate Amino Transferase 30 U/L (14-36); Bilirubin,Total 0.8 mg/dL (0.2-1.3); Blood Urea Nitrogen 15 mg/dL (7-17); Calcium 8.8 mg/dL (8.4-10.2); Carbon Dioxide 26 mmol/L (22-30); Chloride 102 mmol/L (98-107); Estimated CRCL calculation 93 ml/min; Estimated Glomerular Filt Rate > 60; Glucose 171 mg/dL (65-110); Potassium 4.2 mmol/L (3.4-5.0); Sodium 134 mmol/L (137-145); Total Protein 6.8 g/dL (6.3-8.2)
[2024-10-10] MEDS: CLOBETASOL PROPIONATE 0.05% CREAM 30 GM 1 APPLIC TOPICAL (09:25)
[2024-10-10] MEDS: MUPIROCIN 2% OINT 22 GM TUBE 1 APPLIC TOPICAL ×2 (09:25→16:56)
[2024-10-10] MEDS: RIVAROXABAN 20 MG TABLET PO (09:26)
[2024-10-10] MEDS: oxyBUTYnin CHLORIDE XL 5 MG TAB.ER.24 15 MG PO (09:26)
[2024-10-10] MEDS: predniSONE 10 MG TABLET PO (09:26)
[2024-10-10] MEDS: GABAPENTIN 300 MG CAPSULE PO ×3 (09:26→16:46)
[2024-10-10] MEDS: PANTOPRAZOLE 40 MG TABLET PO ×2 (09:26→21:44)
[2024-10-10] MEDS: INSULIN GLARGINE (*BKC) 100 UNITS/ML 40 UNITS SUB-Q (09:27)
[2024-10-10] MEDS: INSULIN ASPART (*BKC) 100 UNITS/ML 32 UNITS SUB-Q (09:29)
[2024-10-10 11:56] LABS: Glucose Point of Care 78 mg/dl (65-105)
[2024-10-10 14:00] VITALS: BP 100/57; PULSE 72; RESP 18; TEMP 36.4; O2SAT 95
[2024-10-10 17:01] LABS: Glucose Point of Care 197 mg/dl (65-105)
[2024-10-10 20:00] VITALS: PULSE 68; RESP 15; O2SAT 98
[2024-10-10 21:12] LABS: Glucose Point of Care 266 mg/dl (65-105)
[2024-10-10 21:37] VITALS: BP 165/71; PULSE 70; RESP 16; TEMP 36.1; O2SAT 97
[2024-10-10] MEDS: rOPINIRole HCL 1 MG TABLET 5 MG PO (21:44)
[2024-10-10] MEDS: LINEZOLID 600 MG TABLET PO (21:44)
[2024-10-10] MEDS: INSULIN ASPART (*BKC) 100 UNITS/ML SUB-Q (21:48)
[2024-10-10 21:57] VITALS: PULSE 68; RESP 15; O2SAT 98
[2024-10-11 02:28] VITALS: PULSE 71; RESP 14; O2SAT 98
[2024-10-11] MEDS: HYDROcodone/acetaminophen (*CRX) 10-325 MG TABLET 1 TAB PO (05:05)
[2024-10-11 05:42] VITALS: PULSE 70; RESP 19; O2SAT 98
[2024-10-11 06:00] VITALS: BP 146/82; PULSE 74; RESP 20; TEMP 36.1; O2SAT 97
[2024-10-11 06:03] LABS: Basophils Percent Auto 0.3 % (0.2-1.2); Eosinophils Absolute Auto 0.2 K/mm3 (0-0.3); Eosinophils Percent Auto 1.3 % (0-4.4); Hematocrit 39.7 % (37.0-47.0); Hemoglobin 12.5 g/dL (12.0-15.0); Immature Granulocyte Absolute 0.07 K/mm3 (0.00-0.031); Immature Granulocyte Percent A 0.5 % (0-0.5); Lymphocytes Absolute Auto 2.77 K/mm3 (0.9-3.2); Lymphocytes Percent Auto 21.7 % (18.3-44.2); Mean Corpuscular HGB Conc 31.5 g/dl (32-36); Mean Corpuscular Hemoglobin 29.4 pg (26-34); Mean Corpuscular Volume 93.4 fl (80-100); Mean Platelet Volume 9.6 fl (7.4-10.4); Monocytes Absolute Auto 0.9 K/mm3 (0.1-0.6); Monocytes Percent Auto 6.8 % (2.6-8.5); Neutrophils Absolute Auto 8.8 K/mm3 (1.3-6.7); Neutrophils Percent Auto 69.4 % (45.5-73.1); Platelet Count Result 290 k/mm3 (150-375); Red Blood Count 4.25 M/mm3 (4.2-5.4); Red Cell Distribution Width 13.7 % (11.5-14.5); White Blood Count 12.8 K/mm3 (4.5-10.0)
[2024-10-11 06:28] LABS: Alanine Aminotransferase 28 U/L (6-35); Albumin Level 3.5 g/dL (3.5-5.1); Alkaline Phosphatase 70 U/L (38-126); Anion Gap 6 mmol/L (4-12); Aspartate Amino Transferase 24 U/L (14-36); Bilirubin,Total 0.7 mg/dL (0.2-1.3); Blood Urea Nitrogen 18 mg/dL (7-17); Calcium 9.2 mg/dL (8.4-10.2); Carbon Dioxide 27 mmol/L (22-30); Chloride 102 mmol/L (98-107); Estimated CRCL calculation 74 ml/min; Estimated Glomerular Filt Rate > 60; Glucose 229 mg/dL (65-110); Sodium 135 mmol/L (137-145); Total Protein 7.1 g/dL (6.3-8.2)
[2024-10-11 08:00] LABS: Glucose Point of Care 242 mg/dl (65-105)
[2024-10-11] MEDS: oxyBUTYnin CHLORIDE XL 5 MG TAB.ER.24 15 MG PO (09:07)
[2024-10-11] MEDS: predniSONE 10 MG TABLET PO (09:07)
[2024-10-11] MEDS: LINEZOLID 600 MG TABLET PO (09:07)
[2024-10-11] MEDS: RIVAROXABAN 20 MG TABLET PO (09:07)
[2024-10-11] MEDS: PANTOPRAZOLE 40 MG TABLET PO (09:07)
[2024-10-11] MEDS: GABAPENTIN 300 MG CAPSULE PO (09:07)
[2024-10-11] MEDS: INSULIN ASPART (*BKC) 100 UNITS/ML 32 UNITS SUB-Q (09:07)
[2024-10-11] MEDS: CLOBETASOL PROPIONATE 0.05% CREAM 30 GM 1 APPLIC TOPICAL (09:08)
[2024-10-11] MEDS: INSULIN ASPART (*BKC) 100 UNITS/ML SUB-Q (09:11)
[2024-10-11] MEDS: MUPIROCIN 2% OINT 22 GM TUBE 1 APPLIC TOPICAL (09:12)
[2024-10-11] MEDS: INSULIN GLARGINE (*BKC) 100 UNITS/ML 40 UNITS SUB-Q (09:14)
--- NOTE | 2024-10-11 09:35 | P.DS_ITS ---
DS: Admitting Diagnosis Discharge Date 10/11/2024 Admitting Diagnosis Abdominal Wall Cellulitis DS: Discharge Diagnosis Discharge Diagnosis (1) Abdominal wall cellulitis: Code(s): L03.311 - Cellulitis of abdominal wall Status: Acute (2) DM type 2 (diabetes mellitus, type 2): Qualifiers: Diabetes mellitus complication status: with hyperglycemia Diabetes mellitus termite control technician insulin use: with termite control technician use Qualified Code(s): E11.65 - Type 2 diabetes mellitus with hyperglycemia; Z79.4 - exterminator helper (current) use of insulin Code(s): E11.9 - Type 2 diabetes mellitus without complications Status: Acute (3) LUL on CPAP: Code(s): G47.33 - Obstructive sleep apnea (adult) (pediatric); Z99.89 - Dependence on other enabling machines and devices Status: Acute DS: Summary Hospital Course Reason for hospitalization: Abdominal Rash Hospital Course: 69 y/o F with PMH of DM2, DVT/PE on anticoagulation, IBS, RLS, LUL on CPAP, CHF, breast cancer s/p bilateral mastectomy, polymyositis, and depression/anxiety presents here with an abdominal rash. The patient presents here from home for further evaluation of a rash/bruise to her lower abdomen. She 1st noticed the rash on Monday, 10/06. She states it initially started on the right side but has progressed to the left side. Now tender to palpation. She was initially evaluated at [facility] on 10/06 and diagnosed with cellulitis. She was started on clindamycin 300 mg b.i.d.. She reports this medication has caused her nausea and vomiting and she has been unable to tolerate. She is also reporting hyperglycemia at home, however is currently on steroids due to recent diagnosis of polymyositis. She denies accompanying fever, body aches, or chills. Initial VS at presentation: 98.5? F, HR 88, RR 18, 133/64, and 95% on RA. ED workup showed: WBC 13.2, hemoglobin 11.7, INR 1.2, sodium 136, creatinine 0.66 and GFR >60, glucose 236, CRP 8.2. CT of the abdomen/pelvis showed likely improving cellulitis along the umbilicus in surrounding pannus, no abscess, and no acute intra-abdominal/pelvic process. Patient was initially started on oral clindamycin and vancomycin for abdominal wall cellulitis, but was unable to tolerate due to nausea/vomiting. Patient was then trialed on linezolid and this well and was eventually switched to p.o. linezolid. Throughout hospitalization, abdominal erythema and swelling greatly improved. Pain also subsided to point of complete relief on 10/11. Leukocytosis improved throughout hospitalization as well, and patient had major electrolyte abnormalities. Vital signs remained stable and patient was afebrile. Physical exam was reassuring, no open wounds or signs of necrosis or fluctuance. Patient otherwise hemodynamically stable for discharge at this time. Plan for discharge home with continued antibiotic coverage with linezolid. She is amenable to this plan. Status at Discharge Functional status at discharge: independent ambulation Overall status at discharge: patient is back to baseline Time Spent with Patient Time attestation: Total time spent providing and/or coordinating discharge services: 35 Exam Narrative: Erythema and ecchymosis has resolved. No pain on palpation of entire lower abdomen. Const: General: no acute distress and uncomfortable (Due to abdominal discomfort) Other: , female, elderly, obese body habitus, nontoxic appearance HENMT: Face/Nose/Sinus: Normal nares present Mouth: Yes moist mucous membranes Eyes: General: appearance normal, both eyes and all related structures Sclera: sclerae normal Pupils: Equal, round and reactive pupils present EOM: EOMs intact bilaterally Resp: Effort & Inspection: normal respiratory effort Auscultation: clear to auscultation bilaterally Cardio: Rate: regular rate Rhythm: regular rhythm Other: S1-S2 present without murmur, rub, ectopy GI: Other: Non-tender Abdomen remains soft, normoactive bowel sounds in all quadrants. Nondistended. Skin: Other: Erythema and ecchymosis of right and left lower abdominal wall has resolved. Pain has subsided Neuro: Cranial nerves: Yes Equal, round and reactive pupils present Speech: normal speech Motor exam (neuro): 5/5 motor strength present throughout Sensory Exam: normal sensation Other: A&O x4 Extrem: General: normal to inspection Psych: Mental Status: mental status grossly normal Affect: normal affect Other: Good insight and judgment, pleasant DS: Data Data Completed and Pending Labs on day of discharge: Labs from last 24 hours 10/11/24 10/11/24 10/10/24 07:43 05:50 21:05 WBC 12.8 H RBC 4.25 Hgb 12.5 Hct 39.7 MCV 93.4 MCH 29.4 MCHC 31.5 L RDW 13.7 Plt Count 290 MPV 9.6 Immature Gran % (Auto) 0.5 Neut % (Auto) 69.4 Lymph % (Auto) 21.7 [place] % (Auto) 6.8 Eos % (Auto) 1.3 Baso % (Auto) 0.3 Lymph # (Auto) 2.77 [place] # (Auto) 0.9 H Eos # (Auto) 0.2 Baso # (Auto) 0.0 Abs Immat Gran (auto) 0.07 H Absolute Neuts (auto) 8.8 H Absolute Nucleated RBC 0.000 Nucleated RBC % 0.0 Sodium 135 L Potassium 4.0 Chloride 102 Carbon Dioxide 27 Anion Gap 6 BUN 18 H Creatinine 0.81 Estim Creat Clear Calc 74 Estimated GFR > 60 Glucose 229 H POC Capillary Glucose 242 H 266 H Calcium 9.2 Total Bilirubin 0.7 AST 24 ALT 28 Alkaline Phosphatase 70 Total Protein 7.1 Albumin 3.5 10/10/24 10/10/24 16:58 11:45 WBC RBC Hgb Hct MCV MCH MCHC RDW Plt Count MPV Immature Gran % (Auto) Neut % (Auto) Lymph % (Auto) [place] % (Auto) Eos % (Auto) Baso % (Auto) Lymph # (Auto) [place] # (Auto) Eos # (Auto) Baso # (Auto) Abs Immat Gran (auto) Absolute Neuts (auto) Absolute Nucleated RBC Nucleated RBC % Sodium Potassium Chloride Carbon Dioxide Anion Gap BUN Creatinine Estim Creat Clear Calc Estimated GFR Glucose POC Capillary Glucose 197 H 78 Calcium Total Bilirubin AST ALT Alkaline Phosphatase Total Protein Albumin Preliminary micro results at discharge 10/08/24 10:18 Blood Culture - Preliminary Blood 10/08/24 10:05 Blood Culture - Preliminary Blood Discharge Plan Discharge Attending physician on discharge: Trisha Martinez Consulting providers: Delano Hernandez Discharging Clinician: Delano Hernandez Anticipated Discharge Date/Time: 10/11/24 09:31 Patient Disposition: Home Activity: as tolerated Diet: as tolerated Discharge Instructions: Discharge disposition: Stable Take medications as prescribed Monitor blood pressures Take caution while standing, rising, or moving Change positions slowly taking a break between each position change If you standing feel dizzy sit back down and take a break Encouraged to continue with yearly vaccinations Return to the emergency department if he developed sudden shortness of breath, chest pain, nausea, vomiting, upset stomach or intractable diarrhea Return to the emergency department if you develop fever greater than 101.5 Follow-up with the primary care physician within 1-2 weeks Thank you for choosing [facility] for your healthcare needs Patient Instructions: Antibiotic Form, Heart Failure (GEN), Safe Use of Anticoagulants (GEN) Patient Language: Scottish Stand Alone Forms: General Discharge Information Follow-up/Referrals: Shahla,Justen Spicer MD [Primary Care Provider] - Discharge Medications: New linezolid 600 mg tablet 600 mg PO Q12H 5 Days Qty: 10 0RF Continued gabapentin 300 mg capsule 300 mg PO TID omeprazole 40 mg capsule,delayed release(DR/EC) 40 mg PO DAILY 30 Days Qty: 30 2RF clobetasol 0.05 % gel 1 applic topical DAILY 14 Days Qty: 15 0RF Rx Instructions: to be pplied in the right cheek avoid eating or drinking for 30 minutes after application mupirocin [Centany] 2 % ointment 1 applic topical BID 30 Days Qty: 15 0RF exemestane 25 mg tablet 25 mg PO HS ropinirole 5 mg tablet 5 mg PO HS insulin glargine [Lantus Solostar U-100 Insulin] 100 unit/mL (3 mL) insulin pen 40 unit SUBCUT QAM insulin lispro [Humalog KwikPen Insulin] 100 unit/mL insulin pen 32 unit SUBCUT TID albuterol sulfate 90 mcg/actuation HFA aerosol inhaler 1 inh inhalation QID PRN (Reason: shortness of breath or wheezing) Qty: 6.7 0RF oxybutynin chloride 15 mg tablet extended release 24hr 15 mg PO DAILY hydrocodone-acetaminophen 10-325 mg tablet 1 tablet PO Q6H PRN (Reason: pain (scale score 7-10)) Qty: 10 0RF ondansetron 4 mg tablet,disintegrating 4 mg PO Q8H PRN (Reason: nausea and vomiting) Qty: 10 0RF lidocaine 5 % ointment 1 applic topical TID PRN (Reason: skin irritation) Qty: 50 0RF prednisone 10 mg tablet 10 mg PO DAILY Xarelto 20 mg tablet 20 mg PO 0900 Date of admission: 10/09/24 10:27 Primary Care Provider: Shahla,Justen Spicer Admitting Provider: Michael Goldstein Attending physician on admission: Michael Goldstein Condition: Stable Quality VTE Prophylaxis VTE prophylaxis: pharmacologic ordered
== END 2024-10-11 10:30 | disposition home or self-care (01) | DRG 603 ==
LOC: ANHED 13:05 → ANH3MEDSUR 13:18
PROVIDERS: Student in an Organized Health Care Education/Training Program; Admitting Provider Internal Medicine; Emergency Provider Physician Assistant; PCP Internal Medicine; Visit Provider Physician Assistant
DX: L03.311 Cellulitis of abdominal wall (principal); Z68.43 Body mass index [BMI] 50.0-59.9, adult; E11.65 Type 2 diabetes mellitus with hyperglycemia; E66.01 Morbid (severe) obesity due to excess calories; E03.9 Hypothyroidism, unspecified; G47.33 Obstructive sleep apnea (adult) (pediatric); G25.81 Restless legs syndrome; Z79.4 Long term (current) use of insulin; Z79.01 Long term (current) use of anticoagulants; Z86.718 Personal history of other venous thrombosis and embolism; Z86.711 Personal history of pulmonary embolism; Z99.89 Dependence on other enabling machines and devices
CPT/HCPCS: 36415; 74177; 80048; 80053; 82948; 83036; 85025; 85610; 85652; 85730; 86140; 87040; 96361; 96365; 96367; 96375; 96376; 99285; A9270; G0378; J1815; J2020; J2270; J2405; J3370; J7030; J7512; Q9967

== ENCOUNTER 2024-10-12 15:44 | Inpatient (IN) | payer MEDICARE, MEDICAID, SELFPAY ==
--- NOTE | ~2024-10-12 | CT_ITS ---
CT abdomen pelvis w con Ordering provider: Cem Short MD History: 69 years Female with . abdominal pain, loose stools . Comparison: October 08, 2024 Technique: CT abdomen and pelvis with IV and without oral contrast. Automated exposure control and it erative reconstruction technique were employed. The dose-length product was 1464.50 mGy-cm. 100 mL Om nipaque 350 was given IV. Findings: VISUALIZED LOWER CHEST: Dependent atelectatic changes. UPPER ABDOMINAL ORGANS: Liver: Normal. Gallbladder: Status post cholecystectomy. Spleen: Normal. Stomach/duodenum: Small sliding hiatus hernia. Pancreas: Atrophic. Adrenals: Normal. Kidneys: Small cyst in the right kidney upper pole. PELVIC ORGANS: The bladder is underfilled. BOWEL AND MESENTERY: Colon: No evidence of diverticulitis.. Fecal material is loaded in the colon.The appendix is not demo nstrated. Small Bowel: Normal. No obstruction. Peritoneum/mesentery: No free air or free fluid. No mesenteric lymphadenopathy. RETROPERITONEUM: Mild atheromatous disease of the abdominal aorta. No retroperitoneal lymphadenopat hy. MUSCULOSKELETAL: Superficial soft tissues: Soft tissue density in the anterior abdominal wall which is slightly larger than the previous study with surrounding cellulitis. No definite abscess formation seen. Follow-up a dvised. Anterior abdominal wall postsurgical changes. Otherwise, The superficial soft tissues are nor mal. Bones: Age appropriate degenerative changes of the spine. Pubic symphysitis. Bilateral sacroiliitis. Spinal stimulator is noted posteriorly. IMPRESSION: 1. Soft tissue density seen in the anterior abdominal wall which is slightly larger than the previou s study. No definite abscess formation seen. Follow-up advised. 2. No evidence of appendicitis, diverticulitis or intestinal obstruction. 3. Constipation. Reviewed, dictated and finalized at location A. IMPRESSION: 1. Soft tissue density seen in the anterior abdominal wall which is slightly l arger than the previous study. No definite abscess formation seen. Follow-up ad vised. 2. No evidence of appendicitis, diverticulitis or intestinal obstruction. 3. Constipation.
--- NOTE | ~2024-10-12 | CT_ITS ---
CT of the Abdomen and Pelvis: Indication: Abdominal wall cellulitis or abscess Technique: 2.5 mm axial scans were obtained through the abdomen and pelvis following intravenous adm inistration of 100 cc of Omnipaque 350. Dose reduction technique was used on this scan by utilizing a utomated exposure control and iterative reconstruction technique. The dose-length product (DLP) was 1 678.90 mGy-cm. COMPARISON: 10/12/2024 Findings: Scans through the lung bases demonstrate stable loose grouping of 4 mm nodules at the medi al left lung base (axial images 39-40).. The liver, spleen, pancreas, adrenals and kidneys are within normal limits. Cholecystectomy clips are present. No evidence of aortic aneurysm. No lymphadenopathy. No bowel obstruction or bowel wall thickening. There is no evidence to suggest acute appendicitis. Ev idence of prior herniorrhaphy. Questionable mild inflammatory process in the anterior subcutaneous so ft tissues in midline about surgical scar. No abscess. Images through the pelvis were performed. Urinary bladder unremarkable. No adnexal mass seen. No asci aliya. Impression: Possible mild inflammatory process in the anterior subcutaneous soft tissues about the anterior midli ne surgical scar. No abscess. Stable subcentimeter nodules at the left lung base, as detailed above. Reviewed, dictated and finalized at location . Impression: Possible mild inflammatory process in the anterior subcutaneous soft tissues ab out the anterior midline surgical scar. No abscess. Stable subcentimeter nodules at the left lung base, as detailed above.
[2024-10-12 15:47] VITALS: BP 142/76; PULSE 80; RESP 20; TEMP 36.6; O2SAT 98
[2024-10-12 16:00] VITALS: PULSE 85; RESP 14; O2SAT 99
[2024-10-12 16:19] VITALS: BP 138/65; PULSE 83; RESP 22; O2SAT 97
[2024-10-12 16:40] VITALS: BP 120/56; PULSE 76; RESP 20; O2SAT 97
--- NOTE | 2024-10-12 16:40 | ED_ITS ---
HPI - General Adult General Chief complaint: Abdominal Pain Stated complaint: abdominal pain, Time Seen by Provider: 10/12/24 15:55 History of Present Illness HPI narrative: This is a 61-year-old female history of chronic pain presenting for abdominal. Patient was recently admitted for abdominal wall cellulitis and trialed on multiple antibiotics until she found a good fit. However after she went home she continued to have pain around her belly button and in the pannus. No N/V. She has had multiple stool. soft but not diarrhea. No fevers chills chest pain or difficulty breathing. No urinary symptoms. She says her bowel movements are foul-smelling Related Data Home Medications ?Medication ?Instructions ?Recorded ?Confirmed ?Last Taken ?Type exemestane 25 mg tablet 25 mg PO HS 01/06/20 10/08/24 10/07/24 History insulin glargine 100 unit/mL (3 40 unit subcut QAM 01/06/20 10/08/24 10/07/24 History mL) subcutaneous pen (Lantus Solostar U-100 Insulin) ropinirole 5 mg tablet 5 mg PO HS 01/06/20 10/08/24 10/07/24 History insulin lispro 100 unit/mL 32 unit subcut TID 03/19/22 10/08/24 10/07/24 History subcutaneous pen (Humalog KwikPen (U-100) Insulin) oxybutynin chloride 15 mg 15 mg PO DAILY 11/06/22 10/08/24 10/07/24 History tablet,extended release 24 hr gabapentin 300 mg capsule 300 mg PO TID 06/25/23 10/08/24 10/07/24 History prednisone 10 mg tablet 10 mg PO DAILY 10/08/24 10/08/24 10/07/24 History rivaroxaban 20 mg tablet (Xarelto) 20 mg PO 0900 10/08/24 10/08/24 10/07/24 History Allergies Allergy/AdvReac Type Severity Reaction Status Date / Time ceftriaxone Allergy Severe SOB Verified 10/12/24 15:52 cephalexin Allergy Severe Difficulty Verified 10/12/24 15:52 Breathing Cephalosporins Allergy Severe Difficulty Verified 10/12/24 15:52 Breathing lorazepam Allergy Severe Swelling Verified 10/12/24 15:52 trazodone Allergy Severe Swelling Verified 10/12/24 15:52 of Lip/Tongue/Throat metoclopramide Allergy Intermediate Other Verified 10/12/24 15:52 chlorhexidine Allergy Mild BLISTERING Verified 10/12/24 15:52 levofloxacin Allergy Mild Hives / Verified 10/12/24 15:52 Red Face ketorolac Allergy Itching Verified 10/12/24 15:52 latex Allergy Rash Verified 10/12/24 15:52 meropenem Allergy Rash Verified 10/12/24 15:52 nitrofurantoin Allergy Itching Verified 10/12/24 15:52 sulfamethoxazole (From Allergy Itching Verified 10/12/24 15:52 Sulfamethoxazole-Trimethoprim) trimethoprim (From Allergy Itching Verified 10/12/24 15:52 Sulfamethoxazole-Trimethoprim) clindamycin AdvReac Intermediate Nausea and Verified 10/12/24 15:52 Vomiting oxycodone AdvReac Mild Vomiting Verified 10/12/24 15:52 amlodipine AdvReac Swelling Verified 10/12/24 15:52 lisinopril AdvReac Swelling Verified 10/12/24 15:52 pregabalin AdvReac Swelling Verified 10/12/24 15:52 reslizumab AdvReac Unknown Verified 10/12/24 15:52 PMF Past Medical History Medical History Gastroparesis Obstructive sleep apnea on CPAP Restless leg syndrome Pulmonary embolism positive for coagulation workup Deep venous thrombosis Type 2 diabetes mellitus Throat pain in adult Oral ulcer Chronic anticoagulation Overactive bladder Irritable bowel syndrome Congestive heart failure Chronic back pain COVID-19 Collagenous colitis Morbid obesity Breast cancer Depression Anxiety Peripheral neuropathy Kidney stone Multiple thyroid nodules Surgical History Surgical History History of umbilical hernia repair History of colonoscopy Status post insertion of spinal cord stimulator History of cystoscopy History of ureter stent History of cholecystectomy History of bilateral mastectomy History of esophagogastroduodenoscopy (EGD) History of right oophorectomy History of total right knee replacement History of cardiac catheterization Reportedly negative for coronary artery disease. Family History Family History Mother Diabetes mellitus Acute myocardial infarction Cerebrovascular accident Hypertension Congestive heart failure Father Prostate carcinoma Sibling Breast cancer Acute myocardial infarction Chronic obstructive pulmonary disease Social History Social History Social History: Surrogate medical decision maker: Jimmie Marques, spouse. Code status: Full code. Smoking packs per day: 0 Smoking cigarettes per day: 0.0 Years smoked: 2 Smoking pack-years: 0.00 Smoking status: Former smoker Second hand tobacco smoke exposure: Yes Alcohol intake: never Substance use: never Substance use type: does not use Do You Feel Safe in your Home?: Yes Lack of Transportation: No Lack of Food: Never True Current Housing: I Have Housing Concerned About Future Housing: No Difficulty Paying Gas/Electric Bills: No Difficulty Paying for Meds: No Currently Unemployed: No Education: Decline to Answer Difficulty w/ Childcare or Family Care: No Living arrangements: with family Additional occupation/education comments: Disabled. Spiritual care concerns: No Exam 2 Narrative: APPEARANCE: No apparent distress. Head: atraumatic. EYES: EOMI, NOSE: Atraumatic NECK: Trachea midline RESPIRATORY: No increased rate of breathing clear to auscultation CARDIOVASCULAR: RRR, ABDOMINAL: Obese, tenderness around the umbilicus and deep in the pannus, no tenderness over the actual abdomen MUSCULOSKELETAl: No obvious deformities NEURO: Alert. Moving 4/4 extremities SKIN:: Warm, dry. Normal color PSYCHIATRIC: Normal affect Course Vital Signs Vital signs: Vital Signs Temperature 97.8 F 10/12/24 15:47 Pulse Rate 80 10/12/24 15:47 Respiratory Rate 20 10/12/24 15:47 Blood Pressure 142/76 H 10/12/24 15:47 Pulse Oximetry 98 10/12/24 15:47 Oxygen Delivery Room Air 10/12/24 15:47 Temperature 97.8 F 10/12/24 15:47 Pulse Rate 76 10/12/24 16:40 Respiratory Rate 20 10/12/24 16:40 Blood Pressure 120/56 L 10/12/24 16:40 Pulse Oximetry 97 10/12/24 16:40 Oxygen Delivery Room Air 10/12/24 16:00 Medical Decision Making [facility] Narrative Medical decision making narrative: -Course: This 69-year-old female presenting to the ED for abdominal pain. Patient has pain located in the lower left pannus. CT abdomen pelvis ordered to evaluate. CT shows soft tissue density in the left anterior wall that is growing in size from previous CTs and is in the area of the patient's pain on exam. White count is still elevated at 12.6 despite antibiotics. Concern for abscess. Linezolid will be continued. Patient will be admitted the hospital for further evaluation. Consult to surgery. -DDX includes but is not limited to: Inflammatory changes, abscess, cellulitis, constipation Vital Signs Vital Signs: Vital Signs Temperature 97.8 F 10/12/24 15:47 Pulse Rate 80 10/12/24 15:47 Respiratory Rate 20 10/12/24 15:47 Blood Pressure 142/76 H 10/12/24 15:47 Pulse Oximetry 98 10/12/24 15:47 Oxygen Delivery Room Air 10/12/24 15:47 Temperature 97.8 F 10/12/24 15:47 Pulse Rate 76 10/12/24 16:40 Respiratory Rate 20 10/12/24 16:40 Blood Pressure 120/56 L 10/12/24 16:40 Pulse Oximetry 97 10/12/24 16:40 Oxygen Delivery Room Air 10/12/24 16:00 Lab Data 10/12/24 16:38 10/12/24 16:38 Labs: Lab Results 10/12/24 10/12/24 Range/Units 16:38 17:01 WBC 12.7 H (4.5-10.0) K/mm3 RBC 4.29 (4.2-5.4) M/mm3 Hgb 12.4 (12.0-15.0) g/dL Hct 39.5 (37.0-47.0) % MCV 92.1 (80-100) fl MCH 28.9 (26-34) pg MCHC 31.4 L (32-36) g/dl RDW 13.6 (11.5-14.5) % Plt Count 279 (150-375) k/mm3 MPV 9.1 (7.4-10.4) fl Immature Gran % (Auto) 0.4 (0-0.5) % Neut % (Auto) 67.9 (45.5-73.1) % Lymph % (Auto) 22.2 (18.3-44.2) % [place] % (Auto) 7.0 (2.6-8.5) % Eos % (Auto) 2.2 (0-4.4) % Baso % (Auto) 0.3 (0.2-1.2) % Lymph # (Auto) 2.82 (0.9-3.2) K/mm3 [place] # (Auto) 0.9 H (0.1-0.6) K/mm3 Eos # (Auto) 0.3 (0-0.3) K/mm3 Baso # (Auto) 0.0 (0.0-0.1) K/mm3 Abs Immat Gran (auto) 0.05 H (0.00-0.031) K/mm3 Absolute Neuts (auto) 8.6 H (1.3-6.7) K/mm3 Absolute Nucleated RBC 0.000 (0.0-0.012) K/mm3 Nucleated RBC % 0.0 (0.0-0.2) % Sodium 139 (137-145) mmol/L Potassium 3.6 (3.4-5.0) mmol/L Chloride 105 (98-107) mmol/L Carbon Dioxide 26 (22-30) mmol/L Anion Gap 8 (4-12) mmol/L BUN 18 H (7-17) mg/dL Creatinine 0.67 L (0.7-1.0) mg/dL Estim Creat Clear Calc 84 ml/min Estimated GFR > 60 (59 - ) Glucose 161 H (65-110) mg/dL Calcium 9.5 (8.4-10.2) mg/dL Total Bilirubin 0.4 (0.2-1.3) mg/dL AST 28 (14-36) U/L ALT 33 (6-35) U/L Alkaline Phosphatase 64 (38-126) U/L Total Protein 7.6 (6.3-8.2) g/dL Albumin 3.8 (3.5-5.1) g/dL Lipase 59 (23-300) U/L Urine Color Yellow (Yellow) Urine Appearance Clear (Clear) Urine pH 5.0 (5.0-9.0) Ur Specific [place] 1.022 (1.001-1.035) Urine Protein Negative (Negative) mg/dL Urine Glucose (UA) 1+ H (Negative) mg/dL Urine Ketones Negative (Negative) mg/dL Ur Blood (Man) Negative (Negative) Urine Nitrate Negative (Negative) Urine Bilirubin Negative (Negative) Urine Urobilinogen 0.2 (<2.0) mg/dL Leukocyte Esterase Rfl 2+ H (Negative) PAO/UL Urine RBC 0-2 (0-2) /hpf Urine WBC 6-10 H (0-3) /hpf Ur Squamous Epith Cells None seen (Few) /hpf Urine Bacteria None seen /hpf Urine Casts 0-2 Discharge Plan Discharge Clinical Impression: Abdominal pain Patient Disposition: Still a Patient Condition: Stable Patient Language: Hungarian Prescriptions: No Action gabapentin 300 mg capsule 300 mg PO TID omeprazole 40 mg capsule,delayed release(DR/EC) 40 mg PO DAILY 30 Days Qty: 30 2RF mupirocin [Centany] 2 % ointment 1 applic topical BID 30 Days Qty: 15 0RF exemestane 25 mg tablet 25 mg PO HS ropinirole 5 mg tablet 5 mg PO HS insulin glargine [Lantus Solostar U-100 Insulin] 100 unit/mL (3 mL) insulin pen 40 unit SUBCUT QAM insulin lispro [Humalog KwikPen Insulin] 100 unit/mL insulin pen 32 unit SUBCUT TID albuterol sulfate 90 mcg/actuation HFA aerosol inhaler 1 inh inhalation QID PRN (Reason: shortness of breath or wheezing) Qty: 6.7 0RF oxybutynin chloride 15 mg tablet extended release 24hr 15 mg PO DAILY hydrocodone-acetaminophen 10-325 mg tablet 1 tablet PO Q6H PRN (Reason: pain (scale score 7-10)) Qty: 10 0RF ondansetron 4 mg tablet,disintegrating 4 mg PO Q8H PRN (Reason: nausea and vomiting) Qty: 10 0RF lidocaine 5 % ointment 1 applic topical TID PRN (Reason: skin irritation) Qty: 50 0RF prednisone 10 mg tablet 10 mg PO DAILY Xarelto 20 mg tablet 20 mg PO 0900 linezolid 600 mg tablet 600 mg PO Q12H 5 Days Qty: 10 0RF Follow-up/Referrals: Shahla,Justen Spicer MD [Primary Care Provider] -
[2024-10-12 16:43] LABS: Basophils Percent Auto 0.3 % (0.2-1.2); Eosinophils Absolute Auto 0.3 K/mm3 (0-0.3); Eosinophils Percent Auto 2.2 % (0-4.4); Hematocrit 39.5 % (37.0-47.0); Hemoglobin 12.4 g/dL (12.0-15.0); Immature Granulocyte Absolute 0.05 K/mm3 (0.00-0.031); Immature Granulocyte Percent A 0.4 % (0-0.5); Lymphocytes Absolute Auto 2.82 K/mm3 (0.9-3.2); Lymphocytes Percent Auto 22.2 % (18.3-44.2); Mean Corpuscular HGB Conc 31.4 g/dl (32-36); Mean Corpuscular Hemoglobin 28.9 pg (26-34); Mean Corpuscular Volume 92.1 fl (80-100); Mean Platelet Volume 9.1 fl (7.4-10.4); Monocytes Absolute Auto 0.9 K/mm3 (0.1-0.6); Neutrophils Absolute Auto 8.6 K/mm3 (1.3-6.7); Neutrophils Percent Auto 67.9 % (45.5-73.1); Platelet Count Result 279 k/mm3 (150-375); Red Blood Count 4.29 M/mm3 (4.2-5.4); Red Cell Distribution Width 13.6 % (11.5-14.5); White Blood Count 12.7 K/mm3 (4.5-10.0)
[2024-10-12] MEDS: DICYCLOMINE HCL INJ 20 MG/2 ML VIAL IM (16:48)
[2024-10-12 16:54] LABS: Alanine Aminotransferase 33 U/L (6-35); Albumin Level 3.8 g/dL (3.5-5.1); Alkaline Phosphatase 64 U/L (38-126); Anion Gap 8 mmol/L (4-12); Aspartate Amino Transferase 28 U/L (14-36); Bilirubin,Total 0.4 mg/dL (0.2-1.3); Blood Urea Nitrogen 18 mg/dL (7-17); Calcium 9.5 mg/dL (8.4-10.2); Carbon Dioxide 26 mmol/L (22-30); Chloride 105 mmol/L (98-107); Estimated CRCL calculation 84 ml/min; Estimated Glomerular Filt Rate > 60; Glucose 161 mg/dL (65-110); Lipase 59 U/L (23-300); Potassium 3.6 mmol/L (3.4-5.0); Sodium 139 mmol/L (137-145); Total Protein 7.6 g/dL (6.3-8.2)
[2024-10-12 17:12] LABS: Add Urine Microscopic? YES; Appearance Urine Clear (Clear); Bacteria Urine None Seen /hpf; Bilirubin Urine Negative (Negative); Blood Urine Negative (Negative); Color Urine Yellow (Yellow); Glucose Urine UA 1+ mg/dL (Negative); Ketones Urine Negative (Negative); Leukocyte Esterase Ur 2+ LEU/UL (Negative); Nitrate Urine Negative (Negative); Non Pathogenic Casts 0-2; Protein Urine Negative (Negative); RBC Urine 0-2 /hpf (0-2); Specific Grav Ur 1.022 (1.001-1.035); Squamous Epithelial Cell Urine None Seen /hpf (Few); Urobilinogen Urine 0.2 mg/dL (<2.0)
--- NOTE | 2024-10-12 20:21 | P.HP_ITS ---
H&P: HPI History of Present Illness Date/Time: 10/12/24 20:21 Chief Complaint: Abdominal pain recent cellulitis Narrative: 69-year-old female well known to the hospitalist service and ER due to past medical history of over utilization Services, type 2 diabetes mellitus, DVT/PE on chronic anticoagulation, irritable bowel syndrome, restless leg syndrome, obstructive sleep apnea on CPAP, CHF, breast cancer status post mastectomy, polymyositis, depression with anxiety among other medical complaints who presented to the ER with persistent abdominal pain. The patient was admitted to the hospital on 10/08/2024 and discharged home on 10/11/2024 after being hospitalized for possible abdominal wall cellulitis. She was discharged on linezolid. She states that she did take her and linezolid after she got home the other night and this morning before coming back into the ER this evening. She reports that her abdomen is painful. She felt that it was more red than at baseline and she was concerned that the infection could be getting worse. She continued to have pain around her belly button and into her pannus. She stated that she noted some persistent erythema however erythema not appreciated at the time of my exam or at the time of exam of the ER provider. She did have some small punctate areas of erythema consistent with Kathrin within her umbilicus and a slightly more extensive area of candidiasis in her pannus fold. She denies any fevers or chills. She does have an area of slightly purple discoloration just above the left side of her umbilicus at the 2 to 4 o'clock position. This was present during her prior hospitalization in appears consistent with bruising. She reports that she has been more nauseated but has not had any vomiting. She has chronic soft stools with history of collagenous colitis but denies diarrhea. She reports increased fatigue. She states that she has not been injecting insulin in her abdomen since her last hospital stay. She has been injecting her insulin and her arms or thighs. She reports the pain is severe and wants pain meds besides her home Front [place]. She takes [place] for chronic back pain and for her pain from her polymyositis. She reports that she has an appointment for outpatient echo and a couple of weeks due to new murmur. She denies any palpitations. Or increased shortness of breath. She has not had any cough or congestion. She denies any abdominal trauma. She reports chest pain but when further questions she actually indicate pain in the epigastric area that radiates through to the back. Her lipase in the ER was negative. She was recently diagnosed with GERD and is on Protonix b.i.d.. Review of Systems 2 Review of Systems: 12 systems were reviewed with pertinent positives and negatives per HPI. Except as documented in the HPI, all other systems were reviewed and are negative. [facility] Past Medical History Medical History (Updated 10/13/24 @ 05:33 by Ilana Duncan DO) Gastroparesis Obstructive sleep apnea on CPAP Restless leg syndrome Pulmonary embolism positive for coagulation workup Deep venous thrombosis Type 2 diabetes mellitus Throat pain in adult Oral ulcer Chronic anticoagulation Overactive bladder Irritable bowel syndrome Congestive heart failure Chronic back pain Collagenous colitis Morbid obesity Breast cancer Depression Anxiety Peripheral neuropathy Kidney stone Multiple thyroid nodules Surgical History Surgical History History of umbilical hernia repair History of colonoscopy Status post insertion of spinal cord stimulator History of cystoscopy History of ureter stent History of cholecystectomy History of bilateral mastectomy History of esophagogastroduodenoscopy (EGD) History of right oophorectomy History of total right knee replacement History of cardiac catheterization Reportedly negative for coronary artery disease. Family History Family History Mother Diabetes mellitus Acute myocardial infarction Congestive heart failure Hypertension Cerebrovascular accident Coronary artery disease Father Prostate carcinoma Sibling Acute myocardial infarction Breast cancer Chronic obstructive pulmonary disease Social History Social History Social History: Surrogate medical decision maker: Jimmie Marques, spouse. Code status: Full code. Smoking packs per day: 0 Smoking cigarettes per day: 0.0 Years smoked: 2 Smoking pack-years: 0.00 Smoking status: Never smoker Second hand tobacco smoke exposure: Yes Alcohol intake: never Substance use: never Substance use type: does not use Do You Feel Safe in your Home?: Yes Lack of Transportation: YES Lack of Food: Never True Current Housing: I Have Housing Concerned About Future Housing: No Difficulty Paying Gas/Electric Bills: No Difficulty Paying for Meds: No Currently Unemployed: No Education: Associate Degree Difficulty w/ Childcare or Family Care: No Living arrangements: with family Additional occupation/education comments: Disabled. Spiritual care concerns: No Meds Home Medications and Allergies Home Medications ?Medication ?Instructions ?Recorded ?Confirmed ?Type exemestane 25 mg tablet 25 mg PO HS 01/06/20 10/12/24 History insulin glargine 100 unit/mL (3 40 unit subcut QAM 01/06/20 10/12/24 History mL) subcutaneous pen (Lantus Solostar U-100 Insulin) ropinirole 5 mg tablet 5 mg PO HS 01/06/20 10/12/24 History insulin lispro 100 unit/mL 32 unit subcut TID 03/19/22 10/12/24 History subcutaneous pen (Humalog KwikPen (U-100) Insulin) albuterol sulfate 90 mcg/actuation 1 inh inhalation QID PRN shortness 09/19/22 10/12/24 Rx aerosol inhaler of breath or wheezing #6.7 grams oxybutynin chloride 15 mg 15 mg PO DAILY 11/06/22 10/12/24 History tablet,extended release 24 hr gabapentin 300 mg capsule 300 mg PO TID 06/25/23 10/12/24 History hydrocodone 10 mg-acetaminophen 1 tablet PO Q6H PRN pain (scale 10/03/23 10/12/24 Rx 325 mg tablet score 7-10) #10 tabs ondansetron 4 mg disintegrating 4 mg PO Q8H PRN nausea and 08/14/24 10/12/24 Rx tablet vomiting #10 tabs mupirocin 2 % topical ointment 1 applic topical BID 30 days #15 09/27/24 10/12/24 Rx (Centany) grams omeprazole 40 mg capsule,delayed 40 mg PO DAILY 30 days #30 caps 09/27/24 10/12/24 Rx release lidocaine 5 % topical ointment 1 applic topical TID PRN skin 10/06/24 10/12/24 Rx irritation #50 grams prednisone 10 mg tablet 10 mg PO DAILY 10/08/24 10/12/24 History rivaroxaban 20 mg tablet (Xarelto) 20 mg PO 0900 10/08/24 10/12/24 History linezolid 600 mg tablet 600 mg PO Q12H 5 days #10 tabs 10/11/24 10/12/24 Rx Allergies Allergy/AdvReac Type Severity Reaction Status Date / Time ceftriaxone Allergy Severe SOB Verified 10/12/24 21:33 cephalexin Allergy Severe Difficulty Verified 10/12/24 21:33 Breathing Cephalosporins Allergy Severe Difficulty Verified 10/12/24 21:33 Breathing lorazepam Allergy Severe Swelling Verified 10/12/24 21:33 trazodone Allergy Severe Swelling Verified 10/12/24 21:33 of Lip/Tongue/Throat metoclopramide Allergy Intermediate Other Verified 10/12/24 21:33 chlorhexidine Allergy Mild BLISTERING Verified 10/12/24 21:33 levofloxacin Allergy Mild Hives / Verified 10/12/24 21:33 Red Face ketorolac Allergy Itching Verified 10/12/24 21:33 latex Allergy Rash Verified 10/12/24 21:33 meropenem Allergy Rash Verified 10/12/24 21:33 nitrofurantoin Allergy Itching Verified 10/12/24 21:33 sulfamethoxazole (From Allergy Itching Verified 10/12/24 21:33 Sulfamethoxazole-Trimethoprim) trimethoprim (From Allergy Itching Verified 10/12/24 21:33 Sulfamethoxazole-Trimethoprim) clindamycin AdvReac Intermediate Nausea and Verified 10/12/24 21:33 Vomiting oxycodone AdvReac Mild Vomiting Verified 10/12/24 21:33 amlodipine AdvReac Swelling Verified 10/12/24 21:33 lisinopril AdvReac Swelling Verified 10/12/24 21:33 pregabalin AdvReac Swelling Verified 10/12/24 21:33 reslizumab AdvReac Unknown Verified 10/12/24 21:33 Vital Signs Vital Signs - 24 hr 10/12/24 15:47 10/12/24 16:00 10/12/24 16:19 Temperature 97.8 F Pulse Rate 80 85 83 Respiratory Rate 20 14 22 H Blood Pressure 142/76 H 138/65 Pulse Oximetry 98 99 97 Oxygen Delivery Room Air Room Air 10/12/24 16:40 Temperature Pulse Rate 76 Respiratory Rate 20 Blood Pressure 120/56 L Pulse Oximetry 97 Oxygen Delivery Exam 2 Narrative: Weight 126.4 kg BMI 52.7 Const: Other: Morbidly obese, no acute distress HENMT: Other: Mucous membranes are moist, no oral pharyngeal erythema, markedly crowded posterior oropharynx Eyes: Other: Pupils are equal and reactive, no scleral icterus, no conjunctival pallor Neck: Other: No JVD, no thyromegaly Resp: Other: Clear to auscultation bilaterally, no increased work of breathing Cardio: Other: Regular rate, regular rhythm, 2+ bilateral radial pedal pulses, no JVD, 2/6 systolic murmur GI: Other: Obese, soft, tender in the periumbilical region and in the lower pannus, normoactive bowel sounds no abdominal wall erythema Skin: Other: Candidiasis in the pannus fold, small punctate areas of erythema within the umbilicus Neuro: Other: Alert orient x4, speech is clear, no facial asymmetry, no localizing neurologic deficits noted during the course of conversation Extrem: Other: No clubbing, cyanosis or edema Psych: Other: Appropriate mood, pleasant and cooperative H&P: Results Labs Labs: Laboratory Tests 10/12/24 16:38 10/12/24 16:38 10/12/24 10/12/24 10/12/24 16:38 17:01 21:15 WBC 12.7 H RBC 4.29 Hgb 12.4 Hct 39.5 MCV 92.1 MCH 28.9 MCHC 31.4 L RDW 13.6 Plt Count 279 MPV 9.1 Immature Gran % (Auto) 0.4 Neut % (Auto) 67.9 Lymph % (Auto) 22.2 Drew % (Auto) 7.0 Eos % (Auto) 2.2 Baso % (Auto) 0.3 Lymph # (Auto) 2.82 Drew # (Auto) 0.9 H Eos # (Auto) 0.3 Baso # (Auto) 0.0 Abs Immat Gran (auto) 0.05 H Absolute Neuts (auto) 8.6 H Absolute Nucleated RBC 0.000 Nucleated RBC % 0.0 Sodium 139 Potassium 3.6 Chloride 105 Carbon Dioxide 26 Anion Gap 8 BUN 18 H Creatinine 0.67 L Estim Creat Clear Calc 84 Estimated GFR > 60 Glucose 161 H POC Capillary Glucose 75 Calcium 9.5 Total Bilirubin 0.4 AST 28 ALT 33 Alkaline Phosphatase 64 C-Reactive Protein 2.4 H Total Protein 7.6 Albumin 3.8 Lipase 59 Procalcitonin 0.1 Urine Color Yellow Urine Appearance Clear Urine pH 5.0 Ur Specific [place] 1.022 Urine Protein Negative Urine Glucose (UA) 1+ H Urine Ketones Negative Ur Blood (Man) Negative Urine Nitrate Negative Urine Bilirubin Negative Urine Urobilinogen 0.2 Leukocyte Esterase Rfl 2+ H Urine RBC 0-2 Urine WBC 6-10 H Ur Squamous Epith Cells None seen Urine Bacteria None seen Urine Casts 0-2 Impressions Abdomen/Pelvis CT 10/12/24 19:13 IMPRESSION: 1. Soft tissue density seen in the anterior abdominal wall which is slightly larger than the previous study. No definite abscess formation seen. Follow-up advised. 2. No evidence of appendicitis, diverticulitis or intestinal obstruction. 3. Constipation. EKG: Test Date: 2024-09-27 00:43:12 Measurements Intervals [place] Rate: 85 P: 30 OH: 129 QRS: 6 QRSD: 90 T: 44 QT: 359 QTc: 428 Interpretive Statements SINUS RHYTHM EARLY PRECORDIAL R/S TRANSITION BORDERLINE ECG Compared to ECG 08/07/2024 14:59:17 No significant changes All imaging and EKGs personally reviewed and interpreted. And unless stated otherwise agree with radiologic and cardiology interpretation. Assessment and Plan Assessment and plan (1) Abdominal pain: Qualifiers: Abdominal location: periumbilical Qualified Code(s): R10.33 - Periumbilical pain Code(s): R10.9 - Unspecified abdominal pain Status: Acute (2) Cellulitis of abdominal wall: Code(s): L03.311 - Cellulitis of abdominal wall Status: Acute (3) Uncontrolled diabetes mellitus: Qualifiers: Diabetes mellitus type: type 2 Glycemic state: with hyperglycemia Q ualified Code(s): E11.65 - Type 2 diabetes mellitus with hyperglycemia Status: Acute (4) Oral ulcer: Code(s): K12.1 - Other forms of stomatitis Status: Acute (5) RLS (restless legs syndrome): Code(s): G25.81 - Restless legs syndrome Status: Acute (6) Chronic back pain: Qualifiers: Back pain location: low back pain Back pain laterality: bilateral S ciatica presence: unspecified whether sciatica present Qualified Code(s): M 54.50 - Low back pain, unspecified; G89.29 - Other chronic pain Code(s): M54.9 - Dorsalgia, unspecified; G89.29 - Other chronic pain Status: Acute (7) Diffuse arthralgia: Code(s): M25.50 - Pain in unspecified joint Status: Acute (8) LUL on CPAP: Code(s): G47.33 - Obstructive sleep apnea (adult) (pediatric); Z99.89 - Dependence on other enabling machines and devices Status: Acute (9) Chronic anticoagulation: Code(s): Z79.01 - skilled nursing (current) use of anticoagulants Status: Acute (10) Candidiasis of skin: Code(s): B37.2 - Candidiasis of skin and nail Status: Acute Plan The patient has recurrent/persistent periumbilical pain. She was recently treated for cellulitis and discharged from the hospital just 24 hours ago. She has not had any fevers or chills but reports worsening pain. CT of the abdomen pelvis suggested possible worsening of inflammation in the area of the patient's pain. Imaging a personally reviewed. There may be an area that is starting to developed more of a contiguous pattern to the abdominal wall. Will continue patient on vent linezolid she was discharged on and request surgical consultation. The patient does have persistent leukocytosis but it is unclear if this is due to infection verses chronic steroid use. She is on 10 mg of prednisone persistently daily until she follows up with Rheumatology next month for further evaluation and and/or definitive treatment for possible polymyositis (or possible polymyalgia rheumatica?). Will give the patient low-dose Dilaudid for breakthrough pain. However patient does have some chronic pain issues which makes further delineation of the cause of the patient's pain difficult. She also reports symptoms of sore throat but was recent evaluate waited by ENT and was found to have a oral ulcer. She states she was given some cream for the wound in her mouth and that if the symptoms do not improve she will need a biopsy in the near future. She was also told that she had GERD and is on Protonix p.o. b.i.d.. This will be continued. She complains of chronic back pain and restless legs will continue patient's home Front [place] and Requip. She has candidiasis of her pannus fold will order miconazole Will continue patient's home Eliquis. Patient does have a murmur. She could have an echocardiogram inpatient versus outpatient. Since patient is asymptomatic at this point will proceed with echocardiogram as outpatient. If she were to develop symptoms in hospital then we could consider sooner evaluation. Patient has been admitted as observation status. Quality VTE Prophylaxis VTE prophylaxis: pharmacologic ordered (Continue home Eliquis) Hospitalist [facility] Advance Care Plan I have confirmed that the patient's Advanced Care Plan is present, code status is documented, or surrogate decision maker is listed in patient medical record.: Yes Medication Reconciliation I have utilized all available resources to obtain, update and review the patients current medications (includes all prescriptions, OTC, herbals, cannabis, and nutritional supplements).: Yes
[2024-10-12 20:45] LABS: CRP. 2.4 mg/dL (<1.0)
[2024-10-12] MEDS: SODIUM CHLORIDE 0.9% IV 1,000 ML 999 ML IV CONT (20:53)
[2024-10-12 20:58] LABS: Procalcitonin. 0.1 ng/mL
[2024-10-12 21:17] LABS: Glucose Point of Care 75 mg/dl (65-105)
[2024-10-12] MEDS: HYDROcodone/acetaminophen (*CRX) 10-325 MG TABLET 1 TAB PO (21:19)
[2024-10-12] MEDS: LINEZOLID 600 MG TABLET PO (21:19)
[2024-10-12 21:41] VITALS: BMI 52.6
[2024-10-12 22:00] VITALS: BP 145/81; PULSE 81; RESP 18; TEMP 35.8; O2SAT 100
[2024-10-12] MEDS: HYDROmorphone HCL INJ (*CRX) 2 MG/ML VIAL 0.5 MG IV PUSH (22:34)
[2024-10-12 22:49] VITALS: PULSE 69; RESP 21; O2SAT 96
[2024-10-12] MEDS: rOPINIRole HCL 1 MG TABLET 5 MG PO (23:50)
[2024-10-12] MEDS: GABAPENTIN 300 MG CAPSULE PO (23:51)
[2024-10-13] VITALS (7 sets, daily range): BP systolic 125–154; BP diastolic 69–103; PULSE 60–77; RESP 18–22; TEMP 36.1–36.4; O2SAT 94–98
--- NOTE | 2024-10-13 00:11 | PHAR ---
Exemestane - 25 MG Tablet Off-White to Slight [place] [employer] [place] [id number] [employer]
[2024-10-13] MEDS: HYDROmorphone HCL INJ (*CRX) 2 MG/ML VIAL 0.5 MG IV PUSH ×3 (02:45→20:03)
[2024-10-13 06:46] LABS: Basophils Percent Auto 0.4 % (0.2-1.2); Eosinophils Absolute Auto 0.4 K/mm3 (0-0.3); Eosinophils Percent Auto 3.4 % (0-4.4); Hematocrit 36.7 % (37.0-47.0); Hemoglobin 11.3 g/dL (12.0-15.0); Immature Granulocyte Absolute 0.05 K/mm3 (0.00-0.031); Immature Granulocyte Percent A 0.5 % (0-0.5); Lymphocytes Absolute Auto 3.22 K/mm3 (0.9-3.2); Lymphocytes Percent Auto 29.6 % (18.3-44.2); Mean Corpuscular HGB Conc 30.8 g/dl (32-36); Mean Corpuscular Hemoglobin 29.2 pg (26-34); Mean Corpuscular Volume 94.8 fl (80-100); Mean Platelet Volume 9.6 fl (7.4-10.4); Monocytes Absolute Auto 0.9 K/mm3 (0.1-0.6); Monocytes Percent Auto 8.3 % (2.6-8.5); Neutrophils Absolute Auto 6.3 K/mm3 (1.3-6.7); Neutrophils Percent Auto 57.8 % (45.5-73.1); Platelet Count Result 241 k/mm3 (150-375); Red Blood Count 3.87 M/mm3 (4.2-5.4); Red Cell Distribution Width 13.9 % (11.5-14.5); White Blood Count 10.9 K/mm3 (4.5-10.0)
[2024-10-13 07:03] LABS: Anion Gap 6 mmol/L (4-12); Blood Urea Nitrogen 16 mg/dL (7-17); Calcium 8.9 mg/dL (8.4-10.2); Carbon Dioxide 29 mmol/L (22-30); Chloride 103 mmol/L (98-107); Estimated CRCL calculation 80 ml/min; Estimated Glomerular Filt Rate > 60; Glucose 151 mg/dL (65-110); Potassium 4.1 mmol/L (3.4-5.0); Sodium 138 mmol/L (137-145)
[2024-10-13 07:55] LABS: Glucose Point of Care 168 mg/dl (65-105)
[2024-10-13] MEDS: LINEZOLID 600 MG TABLET PO (10:12)
[2024-10-13] MEDS: GABAPENTIN 300 MG CAPSULE PO ×3 (10:12→17:53)
[2024-10-13] MEDS: PANTOPRAZOLE 40 MG TABLET PO ×2 (10:13→20:12)
[2024-10-13] MEDS: MICONAZOLE NITRATE 2% CREAM 30 GM TUBE 1 APPLIC TOPICAL ×2 (10:13→21:04)
[2024-10-13] MEDS: predniSONE 10 MG TABLET PO (10:13)
[2024-10-13] MEDS: oxyBUTYnin CHLORIDE XL 5 MG TAB.ER.24 15 MG PO (10:13)
[2024-10-13] MEDS: HYDROcodone/acetaminophen (*CRX) 10-325 MG TABLET 1 TAB PO (10:20)
--- NOTE | 2024-10-13 10:40 | P.PNIM_ITS ---
Progress Note: A&P Assessment and Plan (1) Abdominal pain: Qualifiers: Abdominal location: periumbilical Qualified Code(s): R10.33 - Periumbilical pain Code(s): R10.9 - Unspecified abdominal pain Status: Acute (2) Cellulitis of abdominal wall: Code(s): L03.311 - Cellulitis of abdominal wall Status: Acute (3) Uncontrolled diabetes mellitus: Qualifiers: Diabetes mellitus type: type 2 Glycemic state: with hyperglycemia Qualified Code(s): E11.65 - Type 2 diabetes mellitus with hyperglycemia Status: Acute (4) Oral ulcer: Code(s): K12.1 - Other forms of stomatitis Status: Acute (5) RLS (restless legs syndrome): Code(s): G25.81 - Restless legs syndrome Status: Acute (6) Chronic back pain: Qualifiers: Back pain laterality: bilateral Back pain location: low back pain Sciatica presence: unspecified whether sciatica present Qualified Code(s): M54.50 - Low back pain, unspecified; G89.29 - Other chronic pain Code(s): M54.9 - Dorsalgia, unspecified; G89.29 - Other chronic pain Status: Acute (7) Diffuse arthralgia: Code(s): M25.50 - Pain in unspecified joint Status: Acute (8) LUL on CPAP: Code(s): G47.33 - Obstructive sleep apnea (adult) (pediatric); Z99.89 - Dependence on other enabling machines and devices Status: Acute (9) Chronic anticoagulation: Code(s): Z79.01 - [facility] (current) use of anticoagulants Status: Acute (10) Candidiasis of skin: Code(s): B37.2 - Candidiasis of skin and nail Status: Acute Plan The patient has recurrent/persistent periumbilical pain. She was recently treated for cellulitis and discharged from the hospital just 24 hours ago. She has not had any fevers or chills but reports worsening pain. CT of the abdomen pelvis suggested possible worsening of inflammation in the area of the patient's pain. Imaging a personally reviewed. There may be an area that is starting to developed more of a contiguous pattern to the abdominal wall. Will continue patient on vent linezolid she was discharged on and request surgical consultation. The patient does have persistent leukocytosis but it is unclear if this is due to infection verses chronic steroid use. She is on 10 mg of prednisone persistently daily until she follows up with Rheumatology next month for further evaluation and and/or definitive treatment for possible polymyositis (or possible polymyalgia rheumatica?). Will give the patient low-dose Dilaudid for breakthrough pain. However patient does have some chronic pain issues which makes further delineation of the cause of the patient's pain difficult. Increasing ant abdominal wall mass/density CT AP reviewed Continue Linezolid per prior discharge No erythema on exam GEn surgery consulted She also reports symptoms of sore throat but was recent evaluate waited by ENT and was found to have a oral ulcer. She states she was given some cream for the wound in her mouth and that if the symptoms do not improve she will need a biopsy in the near future. She was also told that she had GERD and is on Protonix p.o. b.i.d.. This will be continued. 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 Except as documented in the HPI, all other systems were reviewed and are negative. Exam Narrative: Weight 126.4 kg BMI 52.7 Const: Other: Morbidly obese, no acute distress HENMT: Other: Mucous membranes are moist, no oral pharyngeal erythema, markedly crowded posterior oropharynx Eyes: Other: Pupils are equal and reactive, no scleral icterus, no conjunctival pallor Neck: Other: No JVD, no thyromegaly Resp: Other: Clear to auscultation bilaterally, no increased work of breathing Cardio: Other: Regular rate, regular rhythm, 2+ bilateral radial pedal pulses, no JVD, 2/6 systolic murmur GI: Other: Obese, soft, tender in the periumbilical region and in the lower pannus, normoactive bowel sounds no abdominal wall erythema Skin: Other: Candidiasis in the pannus fold, small punctate areas of erythema within the umbilicus Neuro: Other: Alert orient x4, speech is clear, no facial asymmetry, no localizing neurologic deficits noted during the course of conversation Extrem: Other: No clubbing, cyanosis or edema Psych: Other: Appropriate mood, pleasant and cooperative Objective Data Vital Signs Vital Signs: Vital Signs - 24 hr 10/12/24 15:47 10/12/24 16:00 10/12/24 16:19 Temperature 97.8 F Pulse Rate 80 85 83 Respiratory Rate 20 14 22 H Blood Pressure 142/76 H 138/65 Pulse Oximetry 98 99 97 Oxygen Delivery Room Air Room Air Fraction of Inspired Oxygen 10/12/24 16:40 10/12/24 22:00 10/12/24 22:49 Temperature 96.4 F L Pulse Rate 76 81 69 Respiratory Rate 20 18 21 H Blood Pressure 120/56 L 145/81 H Pulse Oximetry 97 100 96 Oxygen Delivery CPAP Fraction of Inspired Oxygen 10/13/24 00:00 10/13/24 02:30 10/13/24 06:00 Temperature 97.5 F L 97.5 F L Pulse Rate 66 60 Respiratory Rate 18 18 Blood Pressure 154/103 H 150/92 H Pulse Oximetry 98 98 Oxygen Delivery CPAP Fraction of Inspired Oxygen 10/13/24 08:35 Temperature Pulse Rate 68 Respiratory Rate 20 Blood Pressure Pulse Oximetry 96 Oxygen Delivery Room Air Fraction of Inspired Oxygen 21 Intake/Output Intake/Output: Intake & Output 10/10/24 10/11/24 10/12/24 10/13/24 23:59 23:59 23:59 23:59 Intake Total 0 Balance 0 Meds/Results Medications: Active Medications Generic Name Dose Route Start Last Admin Trade Name Freq PRN Reason Stop Dose Admin Hydrocodone Bitart/Acetaminophen 1 tab 10/12/24 20:55 10/13/24 10:20 Hydrocodone/Acetaminophen (*Crx) 10-325 Mg Tablet PO 1 tab Q6H PRN Administration pain (scale score 7-10) Albuterol 1 puff 10/12/24 23:26 Albuterol Sulfate (*Sp) Aerosol 1 Puff INHALATION QIDRT PRN shortness of breath or wheezing Dextrose 12.5 gm 10/12/24 20:54 Dextrose 50% 25 Gm/50 Ml Syringe IV PUSH PRN PRN Hypoglycemia Protocol Gabapentin 300 mg 10/12/24 23:30 10/13/24 10:12 Gabapentin 300 Mg Capsule PO 300 mg TID RODERICK Administration Glucagon 1 mg 10/12/24 20:54 Glucagon For Inj 1 Mg Vial IM PRN PRN Hypoglycemia Protocol Glucose 15 gm 10/12/24 20:54 Glucose Oral Gel 15 Gm Of Glucse In 37.5 Gm Tube PO PRN PRN Hypoglycemia Protocol Hydromorphone HCl 0.5 mg 10/12/24 20:48 10/13/24 02:45 Hydromorphone Hcl Inj (*Crx) 2 Mg/Ml Vial IV PUSH 0.5 mg Q3H PRN Administration Breakthrough Pain Dextrose 1,000 mls @ 100 mls/hr 10/12/24 20:54 Dextrose 5% 1,000 Ml IVPB PRN PRN Hypoglycemia Protocol Insulin Aspart 1 - 3 units 10/12/24 21:00 10/12/24 21:19 Insulin Aspart (*Bkc) 100 Units/Ml SUB-Q Not Given HS [facility] Protocol Insulin Aspart 32 units 10/13/24 08:00 10/13/24 10:10 Insulin Aspart (*Bkc) 100 Units/Ml SUB-Q Not Given TIDWM RODERICK Insulin Aspart 0 units 10/13/24 12:00 Insulin Aspart (*Bkc) 100 Units/Ml SUB-Q TIDWM [facility] Protocol Insulin Glargine 40 units 10/13/24 09:00 10/13/24 10:10 Insulin Glargine (*Bkc) 100 Units/Ml SUB-Q Not Given QAM RODERICK Linezolid 600 mg 10/12/24 21:00 10/13/24 10:12 Linezolid 600 Mg Tablet PO 600 mg Q12H RODERICK Administration Miconazole Nitrate 1 applic 10/13/24 09:00 10/13/24 10:13 Miconazole Nitrate 2% Cream 30 Gm Tube TOPICAL 1 applic Q12HR RODERICK Administration Non-Formulary Medication 25 mg 10/12/24 23:30 10/12/24 23:45 Exemestane PO 11/11/24 23:29 25 mg HS RODERICK Administration Oxybutynin Chloride 15 mg 10/13/24 09:00 10/13/24 10:13 Oxybutynin Chloride Xl 5 Mg Tab.Er.24 PO 15 mg DAILY RODERICK Administration Pantoprazole Sodium 40 mg 10/13/24 09:00 10/13/24 10:13 Pantoprazole 40 Mg Tablet PO 40 mg Q12HR RODERICK Administration Prednisone 10 mg 10/13/24 09:00 10/13/24 10:13 Prednisone 10 Mg Tablet PO 10 mg DAILY RODERICK Administration Rivaroxaban 20 mg 10/13/24 09:00 Rivaroxaban 20 Mg Tablet PO 0900 RODERICK Ropinirole HCl 5 mg 10/12/24 23:30 10/12/24 23:50 Ropinirole Hcl 1 Mg Tablet PO 5 mg HS RODERICK Administration Radiology Results: ITS Impressions Abdomen/Pelvis CT 10/12/24 19:13 IMPRESSION: 1. Soft tissue density seen in the anterior abdominal wall which is slightly larger than the previous study. No definite abscess formation seen. Follow-up advised. 2. No evidence of appendicitis, diverticulitis or intestinal obstruction. 3. Constipation. Labs Labs: Laboratory Results - last 24 hr 10/12/24 10/12/24 10/12/24 16:38 17:01 21:15 WBC 12.7 H RBC 4.29 Hgb 12.4 Hct 39.5 MCV 92.1 MCH 28.9 MCHC 31.4 L RDW 13.6 Plt Count 279 MPV 9.1 Immature Gran % (Auto) 0.4 Neut % (Auto) 67.9 Lymph % (Auto) 22.2 [place] % (Auto) 7.0 Eos % (Auto) 2.2 Baso % (Auto) 0.3 Lymph # (Auto) 2.82 [place] # (Auto) 0.9 H Eos # (Auto) 0.3 Baso # (Auto) 0.0 Abs Immat Gran (auto) 0.05 H Absolute Neuts (auto) 8.6 H Absolute Nucleated RBC 0.000 Nucleated RBC % 0.0 Sodium 139 Potassium 3.6 Chloride 105 Carbon Dioxide 26 Anion Gap 8 BUN 18 H Creatinine 0.67 L Estim Creat Clear Calc 84 Estimated GFR > 60 Glucose 161 H POC Capillary Glucose 75 Calcium 9.5 Total Bilirubin 0.4 AST 28 ALT 33 Alkaline Phosphatase 64 C-Reactive Protein 2.4 H Total Protein 7.6 Albumin 3.8 Lipase 59 Procalcitonin 0.1 Urine Color Yellow Urine Appearance Clear Urine pH 5.0 Ur Specific [place] 1.022 Urine Protein Negative Urine Glucose (UA) 1+ H Urine Ketones Negative Ur Blood (Man) Negative Urine Nitrate Negative Urine Bilirubin Negative Urine Urobilinogen 0.2 Leukocyte Esterase Rfl 2+ H Urine RBC 0-2 Urine WBC 6-10 H Ur Squamous Epith Cells None seen Urine Bacteria None seen Urine Casts 0-2 10/13/24 10/13/24 06:11 07:53 WBC 10.9 H RBC 3.87 L Hgb 11.3 L Hct 36.7 L MCV 94.8 MCH 29.2 MCHC 30.8 L RDW 13.9 Plt Count 241 MPV 9.6 Immature Gran % (Auto) 0.5 Neut % (Auto) 57.8 Lymph % (Auto) 29.6 [place] % (Auto) 8.3 Eos % (Auto) 3.4 Baso % (Auto) 0.4 Lymph # (Auto) 3.22 H [place] # (Auto) 0.9 H Eos # (Auto) 0.4 H Baso # (Auto) 0.0 Abs Immat Gran (auto) 0.05 H Absolute Neuts (auto) 6.3 Absolute Nucleated RBC 0.000 Nucleated RBC % 0.0 Sodium 138 Potassium 4.1 Chloride 103 Carbon Dioxide 29 Anion Gap 6 BUN 16 Creatinine 0.73 Estim Creat Clear Calc 80 Estimated GFR > 60 Glucose 151 H POC Capillary Glucose 168 H Calcium 8.9 Total Bilirubin AST ALT Alkaline Phosphatase C-Reactive Protein Total Protein Albumin Lipase Procalcitonin Urine Color Urine Appearance Urine pH Ur Specific [place] Urine Protein Urine Glucose (UA) Urine Ketones Ur Blood (Man) Urine Nitrate Urine Bilirubin Urine Urobilinogen Leukocyte Esterase Rfl Urine RBC Urine WBC Ur Squamous Epith Cells Urine Bacteria Urine Casts Quality VTE Prophylaxis VTE prophylaxis: pharmacologic ordered (Continue home Eliquis)
[2024-10-13 11:36] LABS: Glucose Point of Care 175 mg/dl (65-105)
--- NOTE | 2024-10-13 13:02 | WPDCN ---
Assessment and Plan Assessment and plan (1) Uncontrolled diabetes mellitus: Qualifiers: Diabetes mellitus type: type 2 Glycemic state: with hyperglycemia Qualified Code(s): E11.65 - Type 2 diabetes mellitus with hyperglycemia Status: Acute Assessment and Plan: Patient's hemoglobin A1c greater than 8. She is poorly controlled. This will complicate trying to treat any sources of infection. Management as per hospitalist service. (2) Morbid obesity with BMI of 50.0-59.9, adult: Code(s): E66.01 - Morbid (severe) obesity due to excess calories; Z68.43 - Body mass index [BMI] 50.0-59.9, adult Status: Acute Assessment and Plan: Morbid obesity which also complicate removal of the abdominal wall mesh if it is infected. (3) Abdominal pain: Qualifiers: Abdominal location: periumbilical Qualified Code(s): R10.33 - Periumbilical pain Code(s): R10.9 - Unspecified abdominal pain Status: Acute Assessment and Plan: Abdominal pain is likely due to the fluid collection in the abdominal wall. The collection is a little bit larger although the cellulitic changes the superficial skin level have resolved. I think she may need to have the fluid collection drained as it is likely a developing abscess. Hopefully it is not involving the underlying mesh. If the mesh is infected and involved with the abscess then mesh will likely have to be removed and then the hernia repair primarily or with a piece of biologic or biosynthetic mesh. Either way any repair after removal of mesh would have a high chance of recurrence given her super morbid obesity. Okay to have diet for now. Would manage with subcutaneous Lovenox at therapeutic doses for now and hold oral systemic anticoagulation in case she needs surgery. (4) Abdominal wall cellulitis: Code(s): L03.311 - Cellulitis of abdominal wall Status: Acute Assessment and Plan: Currently no obvious cellulitis of the skin. I have changed her from oral linezolid to IV vancomycin to be dosed by pharmacy. Will also add IV Diflucan for the pannus crease fungal cellulitis and rash. HPI Data of Consult Date/Time: 10/13/24 13:02 Requesting Physician: Ilana Duncan DO Primary Care Provider: Justen Gale, Consult Narrative Reason for consult: Abdominal pain, abdominal wall abscess and cellulitis. Narrative: Karly Marques is a 69 year old female who is readmitted to the hospital yesterday being discharged earlier in the week. At that time she appeared to have lower abdominal wall and pannus cellulitis was treated and the cellulitis improved. She was discharged on linezolid for oral antibiotics. She returned to the ER with worsening pain in the abdomen although there was no redness to the skin. She has had a prior history of a laparoscopic cholecystectomy [place] [address] King and then a port site periumbilical hernia which was repaired by Dr. King in 2007 with a piece of Kugel patch mesh with an open hernia repair. The patient states she has not had any problems with the hernia repair since that time. CT scan abdomen pelvis performed on her admission last week showed edema of the skin consistent with cellulitis but a small poorly defined fluid collection in the abdominal pannus that extends towards the mesh. There was no fluid around the mesh. Repeat CT scan on admission yesterday shows this fluid collection to be larger but still no fluid collection around the mesh. White blood cell count was 12,000 on admission and today it is 11,000. Her hemoglobin A1c is greater than 8.5 so she is a poorly-controlled diabetic. She also is morbidly obese with a BMI of 53. Review of Systems Review of Systems: The remainder of the review of systems to include constitutional, HEENT, cardiovascular, respiratory, GI, , integumentary, musculoskeletal, endocrine, immunologic, hematologic, psychiatric, and neurologic are all negative except for which is mentioned above in the HPI. [facility] Past Medical History Medical History Gastroparesis Obstructive sleep apnea on CPAP Restless leg syndrome Pulmonary embolism positive for coagulation workup Deep venous thrombosis Type 2 diabetes mellitus Throat pain in adult Oral ulcer Chronic anticoagulation Overactive bladder Irritable bowel syndrome Congestive heart failure Chronic back pain Collagenous colitis Morbid obesity Breast cancer Depression Anxiety Peripheral neuropathy Kidney stone Multiple thyroid nodules Surgical History Surgical History History of umbilical hernia repair History of colonoscopy Status post insertion of spinal cord stimulator History of cystoscopy History of ureter stent History of cholecystectomy History of bilateral mastectomy History of esophagogastroduodenoscopy (EGD) History of right oophorectomy History of total right knee replacement History of cardiac catheterization Reportedly negative for coronary artery disease. Family History Family History Mother Diabetes mellitus Acute myocardial infarction Congestive heart failure Hypertension Cerebrovascular accident Coronary artery disease Father Prostate carcinoma Sibling Acute myocardial infarction Breast cancer Chronic obstructive pulmonary disease Social History Social History Social History: Surrogate medical decision maker: Jimmie Marques, spouse. Code status: Full code. Smoking packs per day: 0 Smoking cigarettes per day: 0.0 Years smoked: 2 Smoking pack-years: 0.00 Smoking status: Never smoker Second hand tobacco smoke exposure: Yes Alcohol intake: never Substance use: never Substance use type: does not use Do You Feel Safe in your Home?: Yes Lack of Transportation: YES Lack of Food: Never True Current Housing: I Have Housing Concerned About Future Housing: No Difficulty Paying Gas/Electric Bills: No Difficulty Paying for Meds: No Currently Unemployed: No Education: Associate Degree Difficulty w/ Childcare or Family Care: No Living arrangements: with family Additional occupation/education comments: Disabled. Spiritual care concerns: No Meds Home Medications and Allergies Home Medications ?Medication ?Instructions ?Recorded ?Confirmed ?Type exemestane 25 mg tablet 25 mg PO HS 01/06/20 10/12/24 History insulin glargine 100 unit/mL (3 40 unit subcut QAM 01/06/20 10/12/24 History mL) subcutaneous pen (Lantus Solostar U-100 Insulin) ropinirole 5 mg tablet 5 mg PO HS 01/06/20 10/12/24 History insulin lispro 100 unit/mL 32 unit subcut TID 03/19/22 10/12/24 History subcutaneous pen (Humalog KwikPen (U-100) Insulin) albuterol sulfate 90 mcg/actuation 1 inh inhalation QID PRN shortness 09/19/22 10/12/24 Rx aerosol inhaler of breath or wheezing #6.7 grams oxybutynin chloride 15 mg 15 mg PO DAILY 11/06/22 10/12/24 History tablet,extended release 24 hr gabapentin 300 mg capsule 300 mg PO TID 06/25/23 10/12/24 History hydrocodone 10 mg-acetaminophen 1 tablet PO Q6H PRN pain (scale 10/03/23 10/12/24 Rx 325 mg tablet score 7-10) #10 tabs ondansetron 4 mg disintegrating 4 mg PO Q8H PRN nausea and 08/14/24 10/12/24 Rx tablet vomiting #10 tabs mupirocin 2 % topical ointment 1 applic topical BID 30 days #15 09/27/24 10/12/24 Rx (Centany) grams omeprazole 40 mg capsule,delayed 40 mg PO DAILY 30 days #30 caps 09/27/24 10/12/24 Rx release lidocaine 5 % topical ointment 1 applic topical TID PRN skin 10/06/24 10/12/24 Rx irritation #50 grams prednisone 10 mg tablet 10 mg PO DAILY 10/08/24 10/12/24 History rivaroxaban 20 mg tablet (Xarelto) 20 mg PO 0900 10/08/24 10/12/24 History linezolid 600 mg tablet 600 mg PO Q12H 5 days #10 tabs 10/11/24 10/12/24 Rx Allergies Allergy/AdvReac Type Severity Reaction Status Date / Time ceftriaxone Allergy Severe SOB Verified 10/12/24 21:33 cephalexin Allergy Severe Difficulty Verified 10/12/24 21:33 Breathing Cephalosporins Allergy Severe Difficulty Verified 10/12/24 21:33 Breathing lorazepam Allergy Severe Swelling Verified 10/12/24 21:33 trazodone Allergy Severe Swelling Verified 10/12/24 21:33 of Lip/Tongue/Throat metoclopramide Allergy Intermediate Other Verified 10/12/24 21:33 chlorhexidine Allergy Mild BLISTERING Verified 10/12/24 21:33 levofloxacin Allergy Mild Hives / Verified 10/12/24 21:33 Red Face ketorolac Allergy Itching Verified 10/12/24 21:33 latex Allergy Rash Verified 10/12/24 21:33 meropenem Allergy Rash Verified 10/12/24 21:33 nitrofurantoin Allergy Itching Verified 10/12/24 21:33 sulfamethoxazole (From Allergy Itching Verified 10/12/24 21:33 Sulfamethoxazole-Trimethoprim) trimethoprim (From Allergy Itching Verified 10/12/24 21:33 Sulfamethoxazole-Trimethoprim) clindamycin AdvReac Intermediate Nausea and Verified 10/12/24 21:33 Vomiting oxycodone AdvReac Mild Vomiting Verified 10/12/24 21:33 amlodipine AdvReac Swelling Verified 10/12/24 21:33 lisinopril AdvReac Swelling Verified 10/12/24 21:33 pregabalin AdvReac Swelling Verified 10/12/24 21:33 reslizumab AdvReac Unknown Verified 10/12/24 21:33 Vital Signs Vital Signs - 24 hr 10/12/24 15:47 10/12/24 16:00 10/12/24 16:19 Temperature 36.6 C Pulse Rate 80 85 83 Respiratory Rate 20 14 22 H Blood Pressure 142/76 H 138/65 Pulse Oximetry 98 99 97 Oxygen Delivery Room Air Room Air Fraction of Inspired Oxygen 10/12/24 16:40 10/12/24 22:00 10/12/24 22:49 Temperature 35.8 C L Pulse Rate 76 81 69 Respiratory Rate 20 18 21 H Blood Pressure 120/56 L 145/81 H Pulse Oximetry 97 100 96 Oxygen Delivery CPAP Fraction of Inspired Oxygen 10/13/24 00:00 10/13/24 02:30 10/13/24 06:00 Temperature 36.4 C L 36.4 C L Pulse Rate 66 60 Respiratory Rate 18 18 Blood Pressure 154/103 H 150/92 H Pulse Oximetry 98 98 Oxygen Delivery CPAP Fraction of Inspired Oxygen 10/13/24 08:35 Temperature Pulse Rate 68 Respiratory Rate 20 Blood Pressure Pulse Oximetry 96 Oxygen Delivery Room Air Fraction of Inspired Oxygen 21 Exam Const: General: comfortable and no acute distress HENMT: Ears: TM's normal bilaterally Face/Nose/Sinus: Normal nares present Mouth: Yes moist mucous membranes Eyes: General: appearance normal, both eyes and all related structures Sclera: sclerae normal Pupils: Equal, round and reactive pupils present EOM: EOMs intact bilaterally Neck: Neck: supple and no JVD Resp: Effort & Inspection: normal respiratory effort Auscultation: clear to auscultation bilaterally Cardio: Rate: regular rate Rhythm: regular rhythm GI: Other: Abdomen is morbidly obese. Soft. Mild tenderness to palpation in the periumbilical region. Well-healed transverse scar in the periumbilical region without obvious evidence of recurrent hernia. No redness to the skin around the umbilicus. In the pannus crease in the lower abdomen there is erythema and some excoriation consistent with fungal rash. Skin: Rashes: rashes noted Other: Fungal rash in the lower pannus crease. Neuro: General: gait normal Speech: normal speech Sensory Exam: normal sensation Extrem: General: normal to inspection Psych: Mental Status: mental status grossly normal Affect: normal affect Results Labs 10/13/24 06:11 10/13/24 06:11 Labs: Short CBC 10/12/24 10/13/24 Range/Units 16:38 06:11 WBC 12.7 H 10.9 H (4.5-10.0) K/mm3 Hgb 12.4 11.3 L (12.0-15.0) g/dL Hct 39.5 36.7 L (37.0-47.0) % Plt Count 279 241 (150-375) k/mm3 BMP 10/12/24 10/13/24 16:38 06:11 Sodium 139 138 Potassium 3.6 4.1 Chloride 105 103 Carbon Dioxide 26 29 BUN 18 H 16 Creatinine 0.67 L 0.73 Glucose 161 H 151 H Calcium 9.5 8.9 Liver Function 10/12/24 Range/Units 16:38 Total Bilirubin 0.4 (0.2-1.3) mg/dL AST 28 (14-36) U/L ALT 33 (6-35) U/L Alkaline Phosphatase 64 (38-126) U/L Albumin 3.8 (3.5-5.1) g/dL Urine 10/12/24 Range/Units 17:01 Urine Color Yellow (Yellow) Urine Appearance Clear (Clear) Urine pH 5.0 (5.0-9.0) Ur Specific [place] 1.022 (1.001-1.035) Urine Protein Negative (Negative) mg/dL Urine Glucose (UA) 1+ H (Negative) mg/dL Imaging Radiologist's impression: CT Scan Report Signed Patient: Karly Marques : 1955 MR#: [id number] Age: 69 Acct:[id number] Loc: [facility] ADM Date: 10/12/24Attending Dr: Ordering Physician: Cem Short MD Date of Service: 10/12/24 Procedure(s): CT abdomen pelvis w con Accession Number(s): [id number] cc: Shahla, Justen Spicer MD; Cem Short MD~ CT abdomen pelvis w con Ordering provider: Cem Short MD History: 69 years Female with . abdominal pain, loose stools . Comparison: October 08, 2024 Technique: CT abdomen and pelvis with IV and without oral contrast. Automated exposure control and iterative reconstruction technique were employed. The dose-length product was 1464.50 mGy-cm. 100 mL Omnipaque 350 was given IV. Findings: VISUALIZED LOWER CHEST: Dependent atelectatic changes. UPPER ABDOMINAL ORGANS: Liver: Normal. Gallbladder: Status post cholecystectomy. Spleen: Normal. Stomach/duodenum: Small sliding hiatus hernia. Pancreas: Atrophic. Adrenals: Normal. Kidneys: Small cyst in the right kidney upper pole. PELVIC ORGANS: The bladder is underfilled. BOWEL AND MESENTERY: Colon: No evidence of diverticulitis.. Fecal material is loaded in the colon.The appendix is not demonstrated. Small Bowel: Normal. No obstruction. Peritoneum/mesentery: No free air or free fluid. No mesenteric lymphadenopathy. RETROPERITONEUM: Mild atheromatous disease of the abdominal aorta. No retroperitoneal lymphadenopathy. MUSCULOSKELETAL: Superficial soft tissues: Soft tissue density in the anterior abdominal wall which is slightly larger than the previous study with surrounding cellulitis. No definite abscess formation seen. Follow-up advised. Anterior abdominal wall postsurgical changes. Otherwise, The superficial soft tissues are normal. Bones: Age appropriate degenerative changes of the spine. Pubic symphysitis. Bilateral sacroiliitis. Spinal stimulator is noted posteriorly. IMPRESSION: 1. Soft tissue density seen in the anterior abdominal wall which is slightly larger than the previous study. No definite abscess formation seen. Follow-up advised. 2. No evidence of appendicitis, diverticulitis or intestinal obstruction. 3. Constipation. Reviewed, dictated and finalized at location A. Please be advised this is a medical document. It is intended for [id number] communication. It is written in medical language and may contain unfamiliar abbreviations or verbiage. Medical documents are intended to carry relevant information, facts as evident, and the clinical opinion of the practitioner at the time of the encounter. This report may have been done utilizing a voice recognition system. Attempts have been made to correct errors. However, there may be uncorrected grammatical, spelling, and recognition errors present. The file time of this note does not necessarily represent the time of service. Dictated By: Randy Estrella MD 10/12/241912 Signed By: <Electronically signed by Randy Estrella MD in [place]> 10/12/241927
[2024-10-13] MEDS: FLUCONAZOLE 100 MG/NACL 50 ML 100 MG/50 ML BTL 50 MG IVPB (13:57)
[2024-10-13] MEDS: INSULIN ASPART (*BKC) 100 UNITS/ML SUB-Q ×3 (14:10→21:05)
[2024-10-13 14:15] LABS: Glucose Point of Care 205 mg/dl (65-105)
[2024-10-13] MEDS: VANCOMYCIN 1,500 MG/NS 500 ML 1,500 MG/500 ML BAG 175 MG IVPB (15:06)
[2024-10-13 16:53] LABS: Glucose Point of Care 268 mg/dl (65-105)
[2024-10-13] MEDS: VANCOMYCIN 1,000 MG/NS 250 ML 1,000 MG/250 ML BAG 150 MG IVPB (18:41)
[2024-10-13] MEDS: ENOXAPARIN 30 MG/0.3 ML SYRINGE SUB-Q (20:06)
[2024-10-13] MEDS: ENOXAPARIN 100 MG/ML SYRINGE 95 MG SUB-Q (20:09)
[2024-10-13] MEDS: rOPINIRole HCL 1 MG TABLET 5 MG PO (20:12)
[2024-10-13 20:45] LABS: Glucose Point of Care 216 mg/dl (65-105)
[2024-10-14] MEDS: HYDROcodone/acetaminophen (*CRX) 10-325 MG TABLET 1 TAB PO ×3 (00:20→20:26)
[2024-10-14] MEDS: VANCOMYCIN 1,500 MG/NS 500 ML 1,500 MG/500 ML BAG 250 MG IVPB ×2 (02:26→15:11)
[2024-10-14] MEDS: HYDROmorphone HCL INJ (*CRX) 2 MG/ML VIAL 0.5 MG IV PUSH ×3 (04:31→15:24)
[2024-10-14 06:00] VITALS: BP 162/74; PULSE 65; RESP 16; TEMP 35.7; O2SAT 97
[2024-10-14 06:28] LABS: Basophils Percent Auto 0.3 % (0.2-1.2); Eosinophils Absolute Auto 0.2 K/mm3 (0-0.3); Eosinophils Percent Auto 2.1 % (0-4.4); Hemoglobin 12.3 g/dL (12.0-15.0); Immature Granulocyte Absolute 0.07 K/mm3 (0.00-0.031); Immature Granulocyte Percent A 0.7 % (0-0.5); Lymphocytes Percent Auto 27.6 % (18.3-44.2); Mean Corpuscular HGB Conc 31.5 g/dl (32-36); Mean Corpuscular Hemoglobin 29.9 pg (26-34); Mean Corpuscular Volume 94.9 fl (80-100); Mean Platelet Volume 9.6 fl (7.4-10.4); Monocytes Absolute Auto 0.8 K/mm3 (0.1-0.6); Monocytes Percent Auto 8.2 % (2.6-8.5); Neutrophils Absolute Auto 6.2 K/mm3 (1.3-6.7); Neutrophils Percent Auto 61.1 % (45.5-73.1); Platelet Count Result 258 k/mm3 (150-375); Red Blood Count 4.11 M/mm3 (4.2-5.4); Red Cell Distribution Width 13.7 % (11.5-14.5); White Blood Count 10.1 K/mm3 (4.5-10.0)
[2024-10-14 06:42] LABS: Potassium 3.8 mmol/L (3.4-5.0)
[2024-10-14 06:43] LABS: Alanine Aminotransferase 25 U/L (6-35); Albumin Level 3.3 g/dL (3.5-5.1); Alkaline Phosphatase 62 U/L (38-126); Anion Gap 3 mmol/L (4-12); Aspartate Amino Transferase 23 U/L (14-36); Bilirubin,Total 0.5 mg/dL (0.2-1.3); Blood Urea Nitrogen 15 mg/dL (7-17); Calcium 8.7 mg/dL (8.4-10.2); Carbon Dioxide 29 mmol/L (22-30); Chloride 102 mmol/L (98-107); Estimated CRCL calculation 80 ml/min; Estimated Glomerular Filt Rate > 60; Glucose 170 mg/dL (65-110); Magnesium 1.7 mg/dL (1.6-2.3); Sodium 134 mmol/L (137-145); Total Protein 6.8 g/dL (6.3-8.2)
[2024-10-14 07:35] LABS: Glucose Point of Care 183 mg/dl (65-105)
[2024-10-14] MEDS: GABAPENTIN 300 MG CAPSULE PO ×3 (08:39→17:42)
[2024-10-14] MEDS: ENOXAPARIN 30 MG/0.3 ML SYRINGE SUB-Q ×2 (08:39→20:27)
[2024-10-14] MEDS: oxyBUTYnin CHLORIDE XL 5 MG TAB.ER.24 15 MG PO (08:39)
[2024-10-14] MEDS: PANTOPRAZOLE 40 MG TABLET PO ×2 (08:39→20:29)
[2024-10-14] MEDS: predniSONE 10 MG TABLET PO (08:39)
[2024-10-14] MEDS: FLUCONAZOLE 100 MG/NACL 50 ML 100 MG/50 ML BTL 50 MG IVPB (08:40)
[2024-10-14] MEDS: MICONAZOLE NITRATE 2% CREAM 30 GM TUBE 1 APPLIC TOPICAL ×2 (08:40→20:29)
[2024-10-14] MEDS: ENOXAPARIN 100 MG/ML SYRINGE 95 MG SUB-Q ×2 (08:40→20:27)
[2024-10-14 11:42] LABS: Glucose Point of Care 217 mg/dl (65-105)
--- NOTE | 2024-10-14 11:42 | P.PNGS_ITS ---
Progress Note: A&P Assessment and Plan (1) Abdominal wall cellulitis: Code(s): L03.311 - Cellulitis of abdominal wall Status: Acute Assessment and Plan: * There appears to be some mild erythema on exam today. Continue IV antibiotics and IV Diflucan for today. Will repeat a CT scan of the abdomen and pelvis with IV contrast tomorrow morning to re-evaluate the fluid collection. She may require incision and drainage of the fluid collection, which seems to be causing her abdominal pain. Will re-evaluate after the CT scan tomorrow. If the underlying mesh appears to be infected, then that will likely need to be removed and the hernia would be repaired primarily or with a piece of biologic or biosynthetic mesh. He her morbid obesity significantly increases her risks for recurrence. Rivaroxabain remains on hold. Would continue to hold anticoagulation for possible surgery. (2) Abdominal pain: Qualifiers: Abdominal location: periumbilical Qualified Code(s): R10.33 - Periumbilical pain Code(s): R10.9 - Unspecified abdominal pain Status: Acute Assessment and Plan: * Likely due to the periumbilical fluid collection in the abdominal wall. Pain has improved slightly, but she remains tender and there is some mild erythema noted today. This is concerning for a developing abscess. See plan above. (3) Uncontrolled diabetes mellitus: Qualifiers: Diabetes mellitus type: type 2 Glycemic state: with hyperglycemia Qualified Code(s): E11.65 - Type 2 diabetes mellitus with hyperglycemia Status: Acute Assessment and Plan: * Her uncontrolled diabetes complicates management of her acute infection. Continue close glucose monitoring her and management as per hospitalist service. (4) Morbid obesity with BMI of 50.0-59.9, adult: Code(s): E66.01 - Morbid (severe) obesity due to excess calories; Z68.43 - Body mass index [BMI] 50.0-59.9, adult Status: Acute Plan I have discussed the patient's case and plan of care with Dr. Shi. Subjective Subjective Date/Time Seen: 10/14/24 11:42 Patient reports: no new complaints Interval history: Patient's periumbilical abdominal pain has improved slightly. She is still requiring oral pain medication as well as IV Dilaudid. They are currently alternating the pain medication. She reports her pain is aggravated by movement. Overall, it has improved slightly since admission. Exam GI: Inspection: non-distended, Pannus present, obesity and other (Very mild erythema in the infraumbilical area, no induration) GI Palp: Yes Soft to palpation, Yes Tenderness to palpation present (GI) (Diffusely tender in the periumbilical area and lower abdomen), No Guarding due to palpation present (GI) and No Rebound tenderness present Auscultation: normal bowel sounds Other: Erythema and excoriation in the skin fold beneath her pannus consistent with a fungal dermatitis Objective Data Vital Signs Vital Signs: Vital Signs - 24 hr 10/13/24 14:00 10/13/24 20:00 10/13/24 20:58 Temperature 97 F L 97.2 F L Pulse Rate 75 76 76 Respiratory Rate 20 20 20 Blood Pressure 125/69 150/76 H Pulse Oximetry 98 96 96 Oxygen Delivery Room Air Fraction of Inspired Oxygen 21 10/13/24 22:22 10/14/24 02:40 10/14/24 06:00 Temperature 96.2 F L Pulse Rate 77 65 Respiratory Rate 22 H 16 Blood Pressure 162/74 H Pulse Oximetry 94 97 Oxygen Delivery CPAP CPAP Fraction of Inspired Oxygen 10/14/24 08:00 Temperature Pulse Rate Respiratory Rate Blood Pressure Pulse Oximetry Oxygen Delivery Room Air Fraction of Inspired Oxygen Intake/Output Intake/Output: Intake & Output 10/11/24 10/12/24 10/13/24 10/14/24 23:59 23:59 23:59 23:59 Intake Total 1530 980 Balance 1530 980 Meds/Results Medications: Active Medications Generic Name Dose Route Start Last Admin Trade Name Freq PRN Reason Stop Dose Admin Hydrocodone Bitart/Acetaminophen 1 tab 10/12/24 20:55 10/14/24 00:20 Hydrocodone/Acetaminophen (*Crx) 10-325 Mg Tablet PO 1 tab Q6H PRN Administration pain (scale score 7-10) Albuterol 1 puff 10/12/24 23:26 Albuterol Sulfate (*Sp) Aerosol 1 Puff INHALATION QIDRT PRN shortness of breath or wheezing Dextrose 12.5 gm 10/12/24 20:54 Dextrose 50% 25 Gm/50 Ml Syringe IV PUSH PRN PRN Hypoglycemia Protocol Enoxaparin Sodium 30 mg 10/13/24 21:00 10/14/24 08:39 Enoxaparin 30 Mg/0.3 Ml Syringe SUB-Q 30 mg Q12HR RODERICK Administration Enoxaparin Sodium 95 mg 10/13/24 21:00 10/14/24 08:40 Enoxaparin 100 Mg/Ml Syringe SUB-Q 95 mg Q12HR RODERICK Administration Gabapentin 300 mg 10/12/24 23:30 10/14/24 08:39 Gabapentin 300 Mg Capsule PO 300 mg TID ORDERICK Administration Glucagon 1 mg 10/12/24 20:54 Glucagon For Inj 1 Mg Vial IM PRN PRN Hypoglycemia Protocol Glucose 15 gm 10/12/24 20:54 Glucose Oral Gel 15 Gm Of Glucse In 37.5 Gm Tube PO PRN PRN Hypoglycemia Protocol Hydromorphone HCl 0.5 mg 10/12/24 20:48 10/14/24 08:56 Hydromorphone Hcl Inj (*Crx) 2 Mg/Ml Vial IV PUSH 0.5 mg Q3H PRN Administration Breakthrough Pain Dextrose 1,000 mls @ 100 mls/hr 10/12/24 20:54 Dextrose 5% 1,000 Ml IVPB PRN PRN Hypoglycemia Protocol Vancomycin HCl 1,500 mg in 500 mls @ 250 mls/hr 10/13/24 14:00 10/14/24 04:37 Vancomycin 1,500 Mg/Ns 500 Ml IVPB Infused Q12H RODERICK Infusion Fluconazole/Dextrose 100 mg in 50 mls @ 50 mls/hr 10/13/24 13:20 10/14/24 08:40 Diflucan 100 Mg/Nacl 50 Ml IVPB 50 mls/hr DAILY RODERICK Administration Insulin Aspart 1 - 3 units 10/12/24 21:00 10/13/24 21:05 Insulin Aspart (*Bkc) 100 Units/Ml SUB-Q 1 units HS RODERICK Administration Protocol Insulin Aspart 32 units 10/13/24 08:00 10/13/24 10:10 Insulin Aspart (*Bkc) 100 Units/Ml SUB-Q Not Given TIDWM RODERICK Insulin Aspart 0 units 10/13/24 12:00 10/14/24 08:33 Insulin Aspart (*Bkc) 100 Units/Ml SUB-Q Not Given TIDWM [facility] Protocol Insulin Glargine 40 units 10/13/24 09:00 10/13/24 10:10 Insulin Glargine (*Bkc) 100 Units/Ml SUB-Q Not Given QAM [facility] Miconazole Nitrate 1 applic 10/13/24 09:00 10/14/24 08:40 Miconazole Nitrate 2% Cream 30 Gm Tube TOPICAL 1 applic Q12HR RODERICK Administration Non-Formulary Medication 25 mg 10/12/24 23:30 10/13/24 20:10 Exemestane PO 11/11/24 23:29 25 mg HS RODERICK Administration Oxybutynin Chloride 15 mg 10/13/24 09:00 10/14/24 08:39 Oxybutynin Chloride Xl 5 Mg Tab.Er.24 PO 15 mg DAILY RODERICK Administration Pantoprazole Sodium 40 mg 10/13/24 09:00 10/14/24 08:39 Pantoprazole 40 Mg Tablet PO 40 mg Q12HR RODERICK Administration Prednisone 10 mg 10/13/24 09:00 10/14/24 08:39 Prednisone 10 Mg Tablet PO 10 mg DAILY RODERICK Administration Promethazine HCl 12.5 mg 10/13/24 17:57 Promethazine Hcl 25 Mg/Ml Ampul IV PUSH Q6H PRN Nausea And Vomiting Rivaroxaban 20 mg 10/13/24 09:00 10/13/24 09:00 Rivaroxaban 20 Mg Tablet PO Not Given 0900 [facility] Ropinirole HCl 5 mg 10/12/24 23:30 10/13/24 20:12 Ropinirole Hcl 1 Mg Tablet PO 5 mg HS RODERICK Administration Radiology Results: ITS Impressions Abdomen/Pelvis CT 10/12/24 19:13 IMPRESSION: 1. Soft tissue density seen in the anterior abdominal wall which is slightly larger than the previous study. No definite abscess formation seen. Follow-up advised. 2. No evidence of appendicitis, diverticulitis or intestinal obstruction. 3. Constipation. Labs Labs: Laboratory Results - last 24 hr 10/13/24 10/13/24 10/13/24 14:02 16:46 20:42 WBC RBC Hgb Hct MCV MCH MCHC RDW Plt Count MPV Immature Gran % (Auto) Neut % (Auto) Lymph % (Auto) [place] % (Auto) Eos % (Auto) Baso % (Auto) Lymph # (Auto) [place] # (Auto) Eos # (Auto) Baso # (Auto) Abs Immat Gran (auto) Absolute Neuts (auto) Absolute Nucleated RBC Nucleated RBC % Sodium Potassium Chloride Carbon Dioxide Anion Gap BUN Creatinine Estim Creat Clear Calc Estimated GFR Glucose POC Capillary Glucose 205 H 268 H 216 H Calcium Magnesium Total Bilirubin AST ALT Alkaline Phosphatase Total Protein Albumin 10/14/24 10/14/24 05:35 07:31 WBC 10.1 H RBC 4.11 L Hgb 12.3 Hct 39.0 MCV 94.9 MCH 29.9 MCHC 31.5 L RDW 13.7 Plt Count 258 MPV 9.6 Immature Gran % (Auto) 0.7 H Neut % (Auto) 61.1 Lymph % (Auto) 27.6 [place] % (Auto) 8.2 Eos % (Auto) 2.1 Baso % (Auto) 0.3 Lymph # (Auto) 2.80 [place] # (Auto) 0.8 H Eos # (Auto) 0.2 Baso # (Auto) 0.0 Abs Immat Gran (auto) 0.07 H Absolute Neuts (auto) 6.2 Absolute Nucleated RBC 0.000 Nucleated RBC % 0.0 Sodium 134 L Potassium 3.8 Chloride 102 Carbon Dioxide 29 Anion Gap 3 L BUN 15 Creatinine 0.73 Estim Creat Clear Calc 80 Estimated GFR > 60 Glucose 170 H POC Capillary Glucose 183 H Calcium 8.7 Magnesium 1.7 Total Bilirubin 0.5 AST 23 ALT 25 Alkaline Phosphatase 62 Total Protein 6.8 Albumin 3.3 L
[2024-10-14] MEDS: INSULIN ASPART (*BKC) 100 UNITS/ML SUB-Q ×3 (13:03→20:33)
[2024-10-14 14:00] VITALS: BP 137/72; PULSE 76; RESP 18; TEMP 36.4; O2SAT 96
--- NOTE | 2024-10-14 14:52 | P.PNIM_ITS ---
Progress Note: A&P Assessment and Plan (1) Abdominal pain: Qualifiers: Abdominal location: periumbilical Qualified Code(s): R10.33 - Periumbilical pain Code(s): R10.9 - Unspecified abdominal pain Status: Acute (2) Cellulitis of abdominal wall: Code(s): L03.311 - Cellulitis of abdominal wall Status: Acute (3) Uncontrolled diabetes mellitus: Qualifiers: Diabetes mellitus type: type 2 Glycemic state: with hyperglycemia Qualified Code(s): E11.65 - Type 2 diabetes mellitus with hyperglycemia Status: Acute (4) Oral ulcer: Code(s): K12.1 - Other forms of stomatitis Status: Acute (5) RLS (restless legs syndrome): Code(s): G25.81 - Restless legs syndrome Status: Acute (6) Chronic back pain: Qualifiers: Back pain laterality: bilateral Back pain location: low back pain Sciatica presence: unspecified whether sciatica present Qualified Code(s): M54.50 - Low back pain, unspecified; G89.29 - Other chronic pain Code(s): M54.9 - Dorsalgia, unspecified; G89.29 - Other chronic pain Status: Acute (7) Diffuse arthralgia: Code(s): M25.50 - Pain in unspecified joint Status: Acute (8) LUL on CPAP: Code(s): G47.33 - Obstructive sleep apnea (adult) (pediatric); Z99.89 - Dependence on other enabling machines and devices Status: Acute (9) Chronic anticoagulation: Code(s): Z79.01 - skilled nursing (current) use of anticoagulants Status: Acute (10) Candidiasis of skin: Code(s): B37.2 - Candidiasis of skin and nail Status: Acute Plan The patient has recurrent/persistent periumbilical pain. She was recently treated for cellulitis and discharged from the hospital just 24 hours ago. She has not had any fevers or chills but reports worsening pain. CT of the abdomen pelvis suggested possible worsening of inflammation in the area of the patient's pain. Imaging a personally reviewed. There may be an area that is starting to developed more of a contiguous pattern to the abdominal wall. Will continue patient on vent linezolid she was discharged on and request surgical consultation. The patient does have persistent leukocytosis but it is unclear if this is due to infection verses chronic steroid use. She is on 10 mg of prednisone persistently daily until she follows up with Rheumatology next month for further evaluation and and/or definitive treatment for possible polymyositis (or possible polymyalgia rheumatica?). Will give the patient low-dose Dilaudid for breakthrough pain. However patient does have some chronic pain issues which makes further delineation of the cause of the patient's pain difficult. Increasing ant abdominal wall mass/density CT AP reviewed . Plan to repeat CT abdomen and pelvis tomorrow Continue Linezolid per prior discharge No erythema on exam GEn surgery on board oral ulcer. She states she was given some cream for the wound in her mouth and that if the symptoms do not improve she will need a biopsy in the near future. GERD on Protonix p.o. b.i.d. Chronic back pain and RLS continue [place] and Requip intertriginous candidiasis continue Miconazole Heart murmur Outpatient ECHO asymptomatic DVT/PE on Xarelto DM2 SSI with accucheks Breast ca s/p mastectomy DVT prophylaxis on Xarelto Subjective Date/time seen: 10/14/24 14:52 Interval history: per HPI: 69-year-old female well known to the hospitalist service and ER due to past medical history of over utilization Services, type 2 diabetes mellitus, DVT/PE on chronic anticoagulation, irritable bowel syndrome, restless leg syndrome, obstructive sleep apnea on CPAP, CHF, breast cancer status post mastectomy, polymyositis, depression with anxiety among other medical complaints who presented to the ER with persistent abdominal pain. The patient was admitted to the hospital on 10/08/2024 and discharged home on 10/11/2024 after being hospitalized for possible abdominal wall cellulitis. She was discharged on linezolid. She states that she did take her and linezolid after she got home the other night and this morning before coming back into the ER this evening. She reports that her abdomen is painful. She felt that it was more red than at baseline and she was concerned that the infection could be getting worse. She continued to have pain around her belly button and into her pannus. She stated that she noted some persistent erythema however erythema not appreciated at the time of my exam or at the time of exam of the ER provider. She did have some small punctate areas of erythema consistent with Kathrin within her umbilicus and a slightly more extensive area of candidiasis in her pannus fold. She denies any fevers or chills. She does have an area of slightly purple discoloration just above the left side of her umbilicus at the 2 to 4 o'clock position. This was present during her prior hospitalization in appears consistent with bruising. She reports that she has been more nauseated but has not had any vomiting. She has chronic soft stools with history of collagenous colitis but denies diarrhea. She reports increased fatigue. She states that she has not been injecting insulin in her abdomen since her last hospital stay. She has been injecting her insulin and her arms or thighs. She reports the pain is severe and wants pain meds besides her home [place]. She takes [place] for chronic back pain and for her pain from her polymyositis. She reports that she has an appointment for outpatient echo and a couple of weeks due to new murmur. She denies any palpitations. Or increased shortness of breath. She has not had any cough or congestion. She denies any abdominal trauma. She reports chest p ain but when further questions she actually indicate pain in the epigastric area that radiates through to the back. Her lipase in the ER was negative. She was recently diagnosed with GERD and is on Protonix b.i.d. 10/14/24 Patient was seen examined at bedside. Still complaining of periumbilical pain. Plan to repeat CT abdomen pelvis tomorrow to evaluate fluid collects. Review of Systems Review of Systems: 12 systems were reviewed with pertinent positives and negatives per HPI. Except as documented in the HPI, all other systems were reviewed and are negative. Exam Narrative: Weight 126.4 kg BMI 52.7 Const: Other: Morbidly obese, no acute distress HENMT: Other: Mucous membranes are moist, no oral pharyngeal erythema, markedly crowded posterior oropharynx Eyes: Other: Pupils are equal and reactive, no scleral icterus, no conjunctival pallor Neck: Other: No JVD, no thyromegaly Resp: Other: Clear to auscultation bilaterally, no increased work of breathing Cardio: Other: Regular rate, regular rhythm, 2+ bilateral radial pedal pulses, no JVD, 2/6 systolic murmur GI: Other: Obese, soft, tender in the periumbilical region and in the lower pannus, normoactive bowel sounds no abdominal wall erythema Skin: Other: Candidiasis in the pannus fold, small punctate areas of erythema within the umbilicus Neuro: Other: Alert orient x4, speech is clear, no facial asymmetry, no localizing neurologic deficits noted during the course of conversation Extrem: Other: No clubbing, cyanosis or edema Psych: Other: Appropriate mood, pleasant and cooperative Objective Data Vital Signs Vital Signs: Vital Signs - 24 hr 10/13/24 20:00 10/13/24 20:58 10/13/24 22:22 Temperature 97.2 F L Pulse Rate 76 76 77 Respiratory Rate 20 20 22 H Blood Pressure 150/76 H Pulse Oximetry 96 96 94 Oxygen Delivery Room Air CPAP Fraction of Inspired Oxygen 21 10/14/24 02:40 10/14/24 06:00 10/14/24 08:00 Temperature 96.2 F L Pulse Rate 65 Respiratory Rate 16 Blood Pressure 162/74 H Pulse Oximetry 97 Oxygen Delivery CPAP Room Air Fraction of Inspired Oxygen 10/14/24 14:00 Temperature 97.5 F L Pulse Rate 76 Respiratory Rate 18 Blood Pressure 137/72 Pulse Oximetry 96 Oxygen Delivery Fraction of Inspired Oxygen Intake/Output Intake/Output: Intake & Output 10/11/24 10/12/24 10/13/24 10/14/24 23:59 23:59 23:59 23:59 Intake Total 1530 1460 Balance 1530 1460 Meds/Results Medications: Active Medications Generic Name Dose Route Start Last Admin Trade Name Freq PRN Reason Stop Dose Admin Hydrocodone Bitart/Acetaminophen 1 tab 10/12/24 20:55 10/14/24 13:02 Hydrocodone/Acetaminophen (*Crx) 10-325 Mg Tablet PO 1 tab Q6H PRN Administration pain (scale score 7-10) Albuterol 1 puff 10/12/24 23:26 Albuterol Sulfate (*Sp) Aerosol 1 Puff INHALATION QIDRT PRN shortness of breath or wheezing Dextrose 12.5 gm 10/12/24 20:54 Dextrose 50% 25 Gm/50 Ml Syringe IV PUSH PRN PRN Hypoglycemia Protocol Enoxaparin Sodium 30 mg 10/13/24 21:00 10/14/24 08:39 Enoxaparin 30 Mg/0.3 Ml Syringe SUB-Q 30 mg Q12HR [facility] Administration Enoxaparin Sodium 95 mg 10/13/24 21:00 10/14/24 08:40 Enoxaparin 100 Mg/Ml Syringe SUB-Q 95 mg Q12HR [facility]ER[facility] Administration Gabapentin 300 mg 10/12/24 23:30 10/14/24 12:27 Gabapentin 300 Mg Capsule PO 300 mg TID R[facility]ER[facility] Administration Glucagon 1 mg 10/12/24 20:54 Glucagon For Inj 1 Mg Vial IM PRN PRN Hypoglycemia Protocol Glucose 15 gm 10/12/24 20:54 Glucose Oral Gel 15 Gm Of Glucse In 37.5 Gm Tube PO PRN PRN Hypoglycemia Protocol Hydromorphone HCl 0.5 mg 10/12/24 20:48 10/14/24 08:56 Hydromorphone Hcl Inj (*Crx) 2 Mg/Ml Vial IV PUSH 0.5 mg Q3H PRN Administration Breakthrough Pain Dextrose 1,000 mls @ 100 mls/hr 10/12/24 20:54 Dextrose 5% 1,000 Ml IVPB PRN PRN Hypoglycemia Protocol Vancomycin HCl 1,500 mg in 500 mls @ 250 mls/hr 10/13/24 14:00 10/14/24 04:37 Vancomycin 1,500 Mg/Ns 500 Ml IVPB Infused Q12H [facility] Infusion Fluconazole/Dextrose 100 mg in 50 mls @ 50 mls/hr 10/13/24 13:20 10/14/24 08:40 Diflucan 100 Mg/Nacl 50 Ml IVPB 50 mls/hr DAILY [facility] Administration Insulin Aspart 1 - 3 units 10/12/24 21:00 10/13/24 21:05 Insulin Aspart (*Bkc) 100 Units/Ml SUB-Q 1 units HS [facility] Administration Protocol Insulin Aspart 32 units 10/13/24 08:00 10/13/24 10:10 Insulin Aspart (*Bkc) 100 Units/Ml SUB-Q Not Given TIDWM [facility] Insulin Aspart 0 units 10/13/24 12:00 10/14/24 13:03 Insulin Aspart (*Bkc) 100 Units/Ml SUB-Q 4 units TIDWM [facility] Administration Protocol Insulin Glargine 40 units 10/13/24 09:00 10/13/24 10:10 Insulin Glargine (*Bkc) 100 Units/Ml SUB-Q Not Given QAM [facility] Miconazole Nitrate 1 applic 10/13/24 09:00 10/14/24 08:40 Miconazole Nitrate 2% Cream 30 Gm Tube TOPICAL 1 applic Q12HR [facility]ER[facility] Administration Non-Formulary Medication 25 mg 10/12/24 23:30 10/13/24 20:10 Exemestane PO 11/11/24 23:29 25 mg HS [facility] Administration Oxybutynin Chloride 15 mg 10/13/24 09:00 10/14/24 08:39 Oxybutynin Chloride Xl 5 Mg Tab.Er.24 PO 15 mg DAILY [facility] Administration Pantoprazole Sodium 40 mg 10/13/24 09:00 10/14/24 08:39 Pantoprazole 40 Mg Tablet PO 40 mg Q12HR [facility] Administration Prednisone 10 mg 10/13/24 09:00 10/14/24 08:39 Prednisone 10 Mg Tablet PO 10 mg DAILY [facility] Administration Promethazine HCl 12.5 mg 10/13/24 17:57 Promethazine Hcl 25 Mg/Ml Ampul IV PUSH Q6H PRN Nausea And Vomiting Rivaroxaban 20 mg 10/13/24 09:00 10/13/24 09:00 Rivaroxaban 20 Mg Tablet PO Not Given 09 [facility] Ropinirole HCl 5 mg 10/12/24 23:30 10/13/24 20:12 Ropinirole Hcl 1 Mg Tablet PO 5 mg HS [facility] Administration Radiology Results: ITS Impressions Abdomen/Pelvis CT 10/12/24 19:13 IMPRESSION: 1. Soft tissue density seen in the anterior abdominal wall which is slightly larger than the previous study. No definite abscess formation seen. Follow-up advised. 2. No evidence of appendicitis, diverticulitis or intestinal obstruction. 3. Constipation. Labs Labs: Laboratory Results - last 24 hr 10/13/24 10/13/24 10/14/24 16:46 20:42 05:35 WBC 10.1 H RBC 4.11 L Hgb 12.3 Hct 39.0 MCV 94.9 MCH 29.9 MCHC 31.5 L RDW 13.7 Plt Count 258 MPV 9.6 Immature Gran % (Auto) 0.7 H Neut % (Auto) 61.1 Lymph % (Auto) 27.6 [place] % (Auto) 8.2 Eos % (Auto) 2.1 Baso % (Auto) 0.3 Lymph # (Auto) 2.80 [place] # (Auto) 0.8 H Eos # (Auto) 0.2 Baso # (Auto) 0.0 Abs Immat Gran (auto) 0.07 H Absolute Neuts (auto) 6.2 Absolute Nucleated RBC 0.000 Nucleated RBC % 0.0 Sodium 134 L Potassium 3.8 Chloride 102 Carbon Dioxide 29 Anion Gap 3 L BUN 15 Creatinine 0.73 Estim Creat Clear Calc 80 Estimated GFR > 60 Glucose 170 H POC Capillary Glucose 268 H 216 H Calcium 8.7 Magnesium 1.7 Total Bilirubin 0.5 AST 23 ALT 25 Alkaline Phosphatase 62 Total Protein 6.8 Albumin 3.3 L 10/14/24 10/14/24 07:31 11:35 WBC RBC Hgb Hct MCV MCH MCHC RDW Plt Count MPV Immature Gran % (Auto) Neut % (Auto) Lymph % (Auto) [place] % (Auto) Eos % (Auto) Baso % (Auto) Lymph # (Auto) [place] # (Auto) Eos # (Auto) Baso # (Auto) Abs Immat Gran (auto) Absolute Neuts (auto) Absolute Nucleated RBC Nucleated RBC % Sodium Potassium Chloride Carbon Dioxide Anion Gap BUN Creatinine Estim Creat Clear Calc Estimated GFR Glucose POC Capillary Glucose 183 H 217 H Calcium Magnesium Total Bilirubin AST ALT Alkaline Phosphatase Total Protein Albumin Quality VTE Prophylaxis VTE prophylaxis: pharmacologic ordered (Continue home Eliquis)
[2024-10-14 16:33] LABS: Glucose Point of Care 269 mg/dl (65-105)
[2024-10-14] MEDS: INSULIN ASPART (*BKC) 100 UNITS/ML 10 UNITS SUB-Q (18:24)
--- NOTE | 2024-10-14 19:00 | PC.NURSE ---
On 10/14/24, the FORESTRY EXTENSION SPECIALIST, Christin Young, provided care and completed CAD Best documentation on this patient. I have reviewed the FORESTRY EXTENSION SPECIALIST's documentation and agree with the findings.
[2024-10-14 19:19] VITALS: PULSE 72; RESP 20; O2SAT 95
[2024-10-14] MEDS: rOPINIRole HCL 1 MG TABLET 5 MG PO (20:28)
[2024-10-14 20:48] LABS: Glucose Point of Care 237 mg/dl (65-105)
[2024-10-14 20:49] VITALS: BP 132/53; PULSE 68; RESP 18; TEMP 36.4; O2SAT 97
[2024-10-15] MEDS: HYDROmorphone HCL INJ (*CRX) 2 MG/ML VIAL 0.5 MG IV PUSH ×3 (00:17→20:35)
[2024-10-15 00:49] LABS: Hemoglobin 12.5 g/dL (12.0-15.0); Mean Corpuscular HGB Conc 31.3 g/dl (32-36); Mean Corpuscular Hemoglobin 29.1 pg (26-34); Mean Platelet Volume 9.2 fl (7.4-10.4); Platelet Count Result 253 k/mm3 (150-375); Red Cell Distribution Width 13.6 % (11.5-14.5); White Blood Count 10.5 K/mm3 (4.5-10.0)
[2024-10-15 01:09] LABS: Anion Gap 7 mmol/L (4-12); Blood Urea Nitrogen 14 mg/dL (7-17); Carbon Dioxide 26 mmol/L (22-30); Chloride 104 mmol/L (98-107); Estimated CRCL calculation 89 ml/min; Estimated Glomerular Filt Rate > 60; Glucose 191 mg/dL (65-110); Sodium 137 mmol/L (137-145)
[2024-10-15 02:52] VITALS: PULSE 75; RESP 20; O2SAT 95
[2024-10-15] MEDS: VANCOMYCIN 2,000 MG/NS 500 ML 2,000 MG/500 ML BAG 250 MG IVPB ×2 (03:25→15:33)
[2024-10-15 04:41] VITALS: PULSE 76; RESP 20; O2SAT 94
[2024-10-15 05:36] VITALS: BP 121/67; PULSE 64; RESP 18; TEMP 36.3; O2SAT 98
[2024-10-15 07:36] LABS: Glucose Point of Care 193 mg/dl (65-105)
[2024-10-15] MEDS: HYDROcodone/acetaminophen (*CRX) 10-325 MG TABLET 1 TAB PO ×2 (08:16→16:06)
[2024-10-15] MEDS: oxyBUTYnin CHLORIDE XL 5 MG TAB.ER.24 15 MG PO (08:16)
[2024-10-15] MEDS: GABAPENTIN 300 MG CAPSULE PO ×3 (08:17→16:06)
[2024-10-15] MEDS: PANTOPRAZOLE 40 MG TABLET PO ×2 (08:17→20:37)
[2024-10-15] MEDS: predniSONE 10 MG TABLET PO (08:19)
[2024-10-15] MEDS: FLUCONAZOLE 100 MG/NACL 50 ML 100 MG/50 ML BTL 50 MG IVPB (08:21)
[2024-10-15] MEDS: DICLOFENAC SODIUM 1% 100 GM GEL (*BKC) 1 APPLIC TOPICAL ×3 (08:21→16:13)
[2024-10-15] MEDS: MICONAZOLE NITRATE 2% CREAM 30 GM TUBE 1 APPLIC TOPICAL (08:31)
[2024-10-15 11:41] LABS: Glucose Point of Care 212 mg/dl (65-105)
[2024-10-15] MEDS: ONDANSETRON INJ 4 MG/2 ML VIAL IV PUSH (12:11)
[2024-10-15] MEDS: LIDOCAINE 2% VISC SOLN 30 ML, ALUMINUM/MAGNESIUM/SIMETH SUSP 30 ML, diphenhydrAMINE HCl... PO ×2 (12:19→16:10)
--- NOTE | 2024-10-15 12:42 | PM.PNGS ---
Progress Note: A&P Assessment and Plan (1) Abdominal wall cellulitis: Code(s): L03.311 - Cellulitis of abdominal wall Status: Acute Assessment and Plan: Erythema improved today. Still having abdominal pain, but much less tender. Repeat CT scan of the abdomen and pelvis showed no abscess. In comparison to her previous CT, the area of inflammation has improved and appears smaller. Continue IV antibiotics and IV Diflucan for today. Will reassess labs and exam tomorrow. Continue to hold Xarelto for now in case of need for surgical intervention. She is currently on therapeutic-dosed Lovenox. (2) Abdominal pain: Qualifiers: Abdominal location: periumbilical Qualified Code(s): R10.33 - Periumbilical pain Code(s): R10.9 - Unspecified abdominal pain Status: Acute Assessment and Plan: Likely due to the periumbilical inflammatory process in the abdominal wall. See plan above. (3) Uncontrolled diabetes mellitus: Qualifiers: Diabetes mellitus type: type 2 Glycemic state: with hyperglycemia Qualified Code(s): E11.65 - Type 2 diabetes mellitus with hyperglycemia Status: Acute Assessment and Plan: Continue close glucose monitoring her and management as per hospitalist service. (4) Morbid obesity with BMI of 50.0-59.9, adult: Code(s): E66.01 - Morbid (severe) obesity due to excess calories; Z68.43 - Body mass index [BMI] 50.0-59.9, adult Status: Acute Plan I have discussed the patient's case and plan of care with Dr. Shi. Subjective Subjective Date/Time Seen: 10/15/24 12:42 Patient reports: no new complaints and afebrile Interval history: Patient complaining of generalized malaise and nausea. She has less abdominal tenderness, but is still having about the same amount of abdominal pain today. No acute changes overnight. No other issues. WBC count still at 10,000 today. Exam Const: General: no acute distress and awake Orientation/consciousness: patient oriented x3 GI: Inspection: Pannus present and obesity GI Palp: Yes Soft to palpation, Yes Tenderness to palpation present (GI) (tenderness improved, TTP in the periumbilical region near supraumb. scar), No Guarding due to palpation present (GI), No Rebound tenderness present and Yes Other GI palpation findings present (mild erythema noted yesterday improved) Auscultation: normal bowel sounds Objective Data Vital Signs Vital Signs: Vital Signs - 24 hr 10/14/24 14:00 10/14/24 19:19 10/14/24 20:49 Temperature 97.5 F L 97.5 F L Pulse Rate 76 72 68 Respiratory Rate 18 20 18 Blood Pressure 137/72 132/53 L Pulse Oximetry 96 95 97 Oxygen Delivery Room Air Fraction of Inspired Oxygen 10/15/24 02:52 10/15/24 04:41 10/15/24 05:36 Temperature 97.4 F L Pulse Rate 75 76 64 Respiratory Rate 20 20 18 Blood Pressure 121/67 Pulse Oximetry 95 94 98 Oxygen Delivery CPAP CPAP Fraction of Inspired Oxygen 10/15/24 08:00 Temperature Pulse Rate Respiratory Rate Blood Pressure Pulse Oximetry Oxygen Delivery Room Air Fraction of Inspired Oxygen Intake/Output Intake/Output: Intake & Output 10/12/24 10/13/24 10/14/24 10/15/24 23:59 23:59 23:59 23:59 Intake Total 1530 2246 50 Output Total 0 Balance 1530 2246 50 Meds/Results Medications: Active Medications Generic Name Dose Route Start Last Admin Trade Name Freq PRN Reason Stop Dose Admin Hydrocodone Bitart/Acetaminophen 1 tab 10/12/24 20:55 10/15/24 08:16 Hydrocodone/Acetaminophen (*Crx) 10-325 Mg Tablet PO 1 tab Q6H PRN Administration pain (scale score 7-10) Albuterol 1 puff 10/12/24 23:26 Albuterol Sulfate (*Sp) Aerosol 1 Puff INHALATION QIDRT PRN shortness of breath or wheezing Lidocaine HCl 30 ml/ Al Hydrox 0 ml 10/15/24 05:00 10/15/24 12:19 /Mg Hydrox/Simethicone 30 ml/ PO 5 ml Diphenhydramine HCl 75 mg Q4HWA RODERICK Administration Dextrose 12.5 gm 10/12/24 20:54 Dextrose 50% 25 Gm/50 Ml Syringe IV PUSH PRN PRN Hypoglycemia Protocol Diclofenac Sodium 1 applic 10/14/24 21:45 10/15/24 12:19 Diclofenac Sodium 1% 100 Gm Gel (*Bkc) TOPICAL 1 applic QID [facility] Administration Enoxaparin Sodium 30 mg 10/13/24 21:00 10/15/24 12:15 Enoxaparin 30 Mg/0.3 Ml Syringe SUB-Q Not Given Q12HR [facility]ER[facility] Enoxaparin Sodium 95 mg 10/13/24 21:00 10/15/24 12:15 Enoxaparin 100 Mg/Ml Syringe SUB-Q Not Given Q12HR [facility] Gabapentin 300 mg 10/12/24 23:30 10/15/24 12:18 Gabapentin 300 Mg Capsule PO 300 mg TID [facility] Administration Glucagon 1 mg 10/12/24 20:54 Glucagon For Inj 1 Mg Vial IM PRN PRN Hypoglycemia Protocol Glucose 15 gm 10/12/24 20:54 Glucose Oral Gel 15 Gm Of Glucse In 37.5 Gm Tube PO PRN PRN Hypoglycemia Protocol Hydromorphone HCl 0.5 mg 10/12/24 20:48 10/15/24 12:11 Hydromorphone Hcl Inj (*Crx) 2 Mg/Ml Vial IV PUSH 0.5 mg Q3H PRN Administration Breakthrough Pain Dextrose 1,000 mls @ 100 mls/hr 10/12/24 20:54 Dextrose 5% 1,000 Ml IVPB PRN PRN Hypoglycemia Protocol Fluconazole/Dextrose 100 mg in 50 mls @ 50 mls/hr 10/13/24 13:20 10/15/24 09:21 Diflucan 100 Mg/Nacl 50 Ml IVPB Infused DAILY [facility] Infusion Vancomycin HCl 2,000 mg in 500 mls @ 250 mls/hr 10/15/24 03:00 10/15/24 03:25 Vancomycin 2,000 Mg/Ns 500 Ml IVPB 250 mls/hr Q12H [facility] Administration Insulin Aspart 1 - 3 units 10/12/24 21:00 10/14/24 20:33 Insulin Aspart (*Bkc) 100 Units/Ml SUB-Q 1 units HS [facility] Administration Protocol Insulin Aspart 0 units 10/13/24 12:00 10/15/24 12:15 Insulin Aspart (*Bkc) 100 Units/Ml SUB-Q Not Given TIDWM [facility] Protocol Insulin Aspart 10 units 10/14/24 17:00 10/15/24 12:14 Insulin Aspart (*Bkc) 100 Units/Ml SUB-Q Not Given TIDWM [facility] Insulin Glargine 40 units 10/13/24 09:00 10/13/24 10:10 Insulin Glargine (*Bkc) 100 Units/Ml SUB-Q Not Given QAM [facility] Miconazole Nitrate 1 applic 10/13/24 09:00 10/15/24 08:31 Miconazole Nitrate 2% Cream 30 Gm Tube TOPICAL 1 applic Q12HR [facility] Administration Non-Formulary Medication 25 mg 10/12/24 23:30 10/14/24 20:29 Exemestane PO 11/11/24 23:29 25 mg HS [facility] Administration Ondansetron HCl 4 mg 10/15/24 09:22 10/15/24 12:11 Ondansetron Inj 4 Mg/2 Ml Vial IV PUSH 4 mg Q4H PRN Administration Nausea And Vomiting Oxybutynin Chloride 15 mg 10/13/24 09:00 10/15/24 08:16 Oxybutynin Chloride Xl 5 Mg Tab.Er.24 PO 15 mg DAILY [facility] Administration Pantoprazole Sodium 40 mg 10/13/24 09:00 10/15/24 08:17 Pantoprazole 40 Mg Tablet PO 40 mg Q12HR [facility] Administration Prednisone 10 mg 10/13/24 09:00 10/15/24 08:19 Prednisone 10 Mg Tablet PO 10 mg DAILY [facility] Administration Promethazine HCl 12.5 mg 10/13/24 17:57 Promethazine Hcl 25 Mg/Ml Ampul IV PUSH Q6H PRN Nausea And Vomiting Rivaroxaban 20 mg 10/13/24 09:00 10/13/24 09:00 Rivaroxaban 20 Mg Tablet PO Not Given 0900 [facility] Ropinirole HCl 5 mg 10/12/24 23:30 10/14/24 20:28 Ropinirole Hcl 1 Mg Tablet PO 5 mg HS [facility] Administration Radiology Results: ITS Impressions Abdomen/Pelvis CT 10/15/24 07:10 Impression: Possible mild inflammatory process in the anterior subcutaneous soft tissues about the anterior midline surgical scar. No abscess. Stable subcentimeter nodules at the left lung base, as detailed above. Labs Labs: Laboratory Results - last 24 hr 10/14/24 10/14/24 10/15/24 16:30 20:29 00:44 WBC 10.5 H RBC 4.30 Hgb 12.5 Hct 40.0 MCV 93.0 MCH 29.1 MCHC 31.3 L RDW 13.6 Plt Count 253 MPV 9.2 Sodium 137 Potassium 4.0 Chloride 104 Carbon Dioxide 26 Anion Gap 7 BUN 14 Creatinine 0.65 L Estim Creat Clear Calc 89 Estimated GFR > 60 Glucose 191 H POC Capillary Glucose 269 H 237 H Calcium 9.0 Vancomycin Trough 12.0 10/15/24 10/15/24 07:29 11:35 WBC RBC Hgb Hct MCV MCH MCHC RDW Plt Count MPV Sodium Potassium Chloride Carbon Dioxide Anion Gap BUN Creatinine Estim Creat Clear Calc Estimated GFR Glucose POC Capillary Glucose 193 H 212 H Calcium Vancomycin Trough
[2024-10-15 14:00] VITALS: BP 134/64; PULSE 70; RESP 18; TEMP 36.1; O2SAT 99
--- NOTE | 2024-10-15 15:35 | P.PNIM_ITS ---
Progress Note: A&P Assessment and Plan (1) Abdominal pain: Qualifiers: Abdominal location: periumbilical Qualified Code(s): R10.33 - Periumbilical pain Code(s): R10.9 - Unspecified abdominal pain Status: Acute (2) Cellulitis of abdominal wall: Code(s): L03.311 - Cellulitis of abdominal wall Status: Acute (3) Uncontrolled diabetes mellitus: Qualifiers: Diabetes mellitus type: type 2 Glycemic state: with hyperglycemia Qualified Code(s): E11.65 - Type 2 diabetes mellitus with hyperglycemia Status: Acute (4) Oral ulcer: Code(s): K12.1 - Other forms of stomatitis Status: Acute (5) RLS (restless legs syndrome): Code(s): G25.81 - Restless legs syndrome Status: Acute (6) Chronic back pain: Qualifiers: Back pain laterality: bilateral Back pain location: low back pain Sciatica presence: unspecified whether sciatica present Qualified Code(s): M54.50 - Low back pain, unspecified; G89.29 - Other chronic pain Code(s): M54.9 - Dorsalgia, unspecified; G89.29 - Other chronic pain Status: Acute (7) Diffuse arthralgia: Code(s): M25.50 - Pain in unspecified joint Status: Acute (8) LLU on CPAP: Code(s): G47.33 - Obstructive sleep apnea (adult) (pediatric); Z99.89 - Dependence on other enabling machines and devices Status: Acute (9) Chronic anticoagulation: Code(s): Z79.01 - detention (current) use of anticoagulants Status: Acute (10) Candidiasis of skin: Code(s): B37.2 - Candidiasis of skin and nail Status: Acute Plan The patient has recurrent/persistent periumbilical pain. She was recently treated for cellulitis and discharged from the hospital just 24 hours ago. She has not had any fevers or chills but reports worsening pain. CT of the abdomen pelvis suggested possible worsening of inflammation in the area of the patient's pain. Imaging a personally reviewed. There may be an area that is starting to developed more of a contiguous pattern to the abdominal wall. Will continue patient on vent linezolid she was discharged on and request surgical consultation. The patient does have persistent leukocytosis but it is unclear if this is due to infection verses chronic steroid use. She is on 10 mg of prednisone persistently daily until she follows up with Rheumatology next month for further evaluation and and/or definitive treatment for possible polymyositis (or possible polymyalgia rheumatica?). Will give the patient low-dose Dilaudid for breakthrough pain. However patient does have some chronic pain issues which makes further delineation of the cause of the patient's pain difficult. Increasing ant abdominal wall mass/density CT AP reviewed . repeat CT abdomen and pelvis showed no abscess but still mild inflammatory process in cole anterior subcut soft rissues Continue Vanc and fluconazole No erythema on exam GEn surgery on board oral ulcer. She states she was given some cream for the wound in her mouth and that if the symptoms do not improve she will need a biopsy in the near future. GERD on Protonix p.o. b.i.d. Chronic back pain and RLS continue Eugene and Requip intertriginous candidiasis continue Miconazole Heart murmur Outpatient ECHO asymptomatic DVT/PE on Xarelto DM2 SSI with accucheks Breast ca s/p mastectomy DVT prophylaxis on Xarelto whicih is on hold in case she need surgery Subjective Date/time seen: 10/15/24 15:35 Interval history: Comfortable at bedside Review of Systems Review of Systems: 12 systems were reviewed with pertinent positives and negatives per HPI. Except as documented in the HPI, all other systems were reviewed and are negative. Exam Narrative: Weight 126.4 kg BMI 52.7 Const: Other: Morbidly obese, no acute distress HENMT: Other: Mucous membranes are moist, no oral pharyngeal erythema, markedly crowded posterior oropharynx Eyes: Other: Pupils are equal and reactive, no scleral icterus, no conjunctival pallor Neck: Other: No JVD, no thyromegaly Resp: Other: Clear to auscultation bilaterally, no increased work of breathing Cardio: Other: Regular rate, regular rhythm, 2+ bilateral radial pedal pulses, no JVD, 2/6 systolic murmur GI: Other: Obese, soft, tender in the periumbilical region and in the lower pannus, normoactive bowel sounds no abdominal wall erythema Skin: Other: Candidiasis in the pannus fold, small punctate areas of erythema within the umbilicus Neuro: Other: Alert orient x4, speech is clear, no facial asymmetry, no localizing neurologic deficits noted during the course of conversation Extrem: Other: No clubbing, cyanosis or edema Psych: Other: Appropriate mood, pleasant and cooperative Objective Data Vital Signs Vital Signs: Vital Signs - 24 hr 10/14/24 19:19 10/14/24 20:49 10/15/24 02:52 Temperature 97.5 F L Pulse Rate 72 68 75 Respiratory Rate 20 18 20 Blood Pressure 132/53 L Pulse Oximetry 95 97 95 Oxygen Delivery Room Air CPAP Fraction of Inspired Oxygen 21 10/15/24 04:41 10/15/24 05:36 10/15/24 08:00 Temperature 97.4 F L Pulse Rate 76 64 Respiratory Rate 20 18 Blood Pressure 121/67 Pulse Oximetry 94 98 Oxygen Delivery CPAP Room Air Fraction of Inspired Oxygen 10/15/24 14:00 Temperature 97.0 F L Pulse Rate 70 Respiratory Rate 18 Blood Pressure 134/64 Pulse Oximetry 99 Oxygen Delivery Fraction of Inspired Oxygen Intake/Output Intake/Output: Intake & Output 10/12/24 10/13/24 10/14/24 10/15/24 23:59 23:59 23:59 23:59 Intake Total 1530 2246 550 Output Total 0 Balance 1530 2246 550 Meds/Results Medications: Active Medications Generic Name Dose Route Start Last Admin Trade Name Freq PRN Reason Stop Dose Admin Hydrocodone Bitart/Acetaminophen 1 tab 10/12/24 20:55 10/15/24 08:16 Hydrocodone/Acetaminophen (*Crx) 10-325 Mg Tablet PO 1 tab Q6H PRN Administration pain (scale score 7-10) Albuterol 1 puff 10/12/24 23:26 Albuterol Sulfate (*Sp) Aerosol 1 Puff INHALATION QIDRT PRN shortness of breath or wheezing Lidocaine HCl 30 ml/ Al Hydrox 0 ml 10/15/24 05:00 10/15/24 12:19 /Mg Hydrox/Simethicone 30 ml/ PO 5 ml Diphenhydramine HCl 75 mg Q4HWA RODERICK Administration Dextrose 12.5 gm 10/12/24 20:54 Dextrose 50% 25 Gm/50 Ml Syringe IV PUSH PRN PRN Hypoglycemia Protocol Diclofenac Sodium 1 applic 10/14/24 21:45 10/15/24 12:19 Diclofenac Sodium 1% 100 Gm Gel (*Bkc) TOPICAL 1 applic QID RODERICK Administration Enoxaparin Sodium 30 mg 10/13/24 21:00 10/15/24 12:15 Enoxaparin 30 Mg/0.3 Ml Syringe SUB-Q Not Given Q12HR [facility] Enoxaparin Sodium 95 mg 10/13/24 21:00 10/15/24 12:15 Enoxaparin 100 Mg/Ml Syringe SUB-Q Not Given Q12HR [facility] Gabapentin 300 mg 10/12/24 23:30 10/15/24 12:18 Gabapentin 300 Mg Capsule PO 300 mg TID RODERICK Administration Glucagon 1 mg 10/12/24 20:54 Glucagon For Inj 1 Mg Vial IM PRN PRN Hypoglycemia Protocol Glucose 15 gm 10/12/24 20:54 Glucose Oral Gel 15 Gm Of Glucse In 37.5 Gm Tube PO PRN PRN Hypoglycemia Protocol Hydromorphone HCl 0.5 mg 10/12/24 20:48 10/15/24 12:11 Hydromorphone Hcl Inj (*Crx) 2 Mg/Ml Vial IV PUSH 0.5 mg Q3H PRN Administration Breakthrough Pain Dextrose 1,000 mls @ 100 mls/hr 10/12/24 20:54 Dextrose 5% 1,000 Ml IVPB PRN PRN Hypoglycemia Protocol Fluconazole/Dextrose 100 mg in 50 mls @ 50 mls/hr 10/13/24 13:20 10/15/24 09:21 Diflucan 100 Mg/Nacl 50 Ml IVPB Infused DAILY RODERICK Infusion Vancomycin HCl 2,000 mg in 500 mls @ 250 mls/hr 10/15/24 03:00 10/15/24 15:33 Vancomycin 2,000 Mg/Ns 500 Ml IVPB 250 mls/hr Q12H [facility] Administration Insulin Aspart 1 - 3 units 10/12/24 21:00 10/14/24 20:33 Insulin Aspart (*Bkc) 100 Units/Ml SUB-Q 1 units HS [facility] Administration Protocol Insulin Aspart 0 units 10/13/24 12:00 10/15/24 12:15 Insulin Aspart (*Bkc) 100 Units/Ml SUB-Q Not Given TIDWM [facility] Protocol Insulin Aspart 10 units 10/14/24 17:00 10/15/24 12:14 Insulin Aspart (*Bkc) 100 Units/Ml SUB-Q Not Given TIDWM [facility] Insulin Glargine 40 units 10/13/24 09:00 10/13/24 10:10 Insulin Glargine (*Bkc) 100 Units/Ml SUB-Q Not Given QAM [facility] Miconazole Nitrate 1 applic 10/13/24 09:00 10/15/24 08:31 Miconazole Nitrate 2% Cream 30 Gm Tube TOPICAL 1 applic Q12HR RODERICK Administration Non-Formulary Medication 25 mg 10/12/24 23:30 10/14/24 20:29 Exemestane PO 11/11/24 23:29 25 mg HS RODERICK Administration Ondansetron HCl 4 mg 10/15/24 09:22 10/15/24 12:11 Ondansetron Inj 4 Mg/2 Ml Vial IV PUSH 4 mg Q4H PRN Administration Nausea And Vomiting Oxybutynin Chloride 15 mg 10/13/24 09:00 10/15/24 08:16 Oxybutynin Chloride Xl 5 Mg Tab.Er.24 PO 15 mg DAILY RODERICK Administration Pantoprazole Sodium 40 mg 10/13/24 09:00 10/15/24 08:17 Pantoprazole 40 Mg Tablet PO 40 mg Q12HR [facility]ICK Administration Prednisone 10 mg 10/13/24 09:00 10/15/24 08:19 Prednisone 10 Mg Tablet PO 10 mg DAILY RODERICK Administration Promethazine HCl 12.5 mg 10/13/24 17:57 Promethazine Hcl 25 Mg/Ml Ampul IV PUSH Q6H PRN Nausea And Vomiting Rivaroxaban 20 mg 10/13/24 09:00 10/13/24 09:00 Rivaroxaban 20 Mg Tablet PO Not Given 0900 [facility] Ropinirole HCl 5 mg 10/12/24 23:30 10/14/24 20:28 Ropinirole Hcl 1 Mg Tablet PO 5 mg HS [facility]ODERICK Administration Radiology Results: ITS Impressions Abdomen/Pelvis CT 10/15/24 07:10 Impression: Possible mild inflammatory process in the anterior subcutaneous soft tissues about the anterior midline surgical scar. No abscess. Stable subcentimeter nodules at the left lung base, as detailed above. Labs Labs: Laboratory Results - last 24 hr 10/14/24 10/14/24 10/15/24 16:30 20:29 00:44 WBC 10.5 H RBC 4.30 Hgb 12.5 Hct 40.0 MCV 93.0 MCH 29.1 MCHC 31.3 L RDW 13.6 Plt Count 253 MPV 9.2 Sodium 137 Potassium 4.0 Chloride 104 Carbon Dioxide 26 Anion Gap 7 BUN 14 Creatinine 0.65 L Estim Creat Clear Calc 89 Estimated GFR > 60 Glucose 191 H POC Capillary Glucose 269 H 237 H Calcium 9.0 Vancomycin Trough 12.0 10/15/24 10/15/24 07:29 11:35 WBC RBC Hgb Hct MCV MCH MCHC RDW Plt Count MPV Sodium Potassium Chloride Carbon Dioxide Anion Gap BUN Creatinine Estim Creat Clear Calc Estimated GFR Glucose POC Capillary Glucose 193 H 212 H Calcium Vancomycin Trough Quality VTE Prophylaxis VTE prophylaxis: pharmacologic ordered (Continue home Eliquis)
[2024-10-15] MEDS: INSULIN ASPART (*BKC) 100 UNITS/ML 10 UNITS SUB-Q (16:12)
[2024-10-15] MEDS: INSULIN ASPART (*BKC) 100 UNITS/ML SUB-Q ×2 (16:12→20:37)
[2024-10-15 16:18] LABS: Glucose Point of Care 233 mg/dl (65-105)
[2024-10-15 20:16] LABS: Glucose Point of Care 257 mg/dl (65-105)
[2024-10-15 20:17] VITALS: BP 134/68; PULSE 77; RESP 16; TEMP 36.6; O2SAT 98
[2024-10-15] MEDS: ENOXAPARIN 30 MG/0.3 ML SYRINGE SUB-Q (20:36)
[2024-10-15] MEDS: ENOXAPARIN 100 MG/ML SYRINGE 95 MG SUB-Q (20:36)
[2024-10-15] MEDS: rOPINIRole HCL 1 MG TABLET 5 MG PO (20:37)
[2024-10-15 22:40] VITALS: PULSE 69; RESP 25; O2SAT 97
[2024-10-16] MEDS: HYDROcodone/acetaminophen (*CRX) 10-325 MG TABLET 1 TAB PO ×4 (00:25→22:41)
[2024-10-16 02:04] VITALS: PULSE 63; RESP 16; O2SAT 96
[2024-10-16] MEDS: VANCOMYCIN 2,000 MG/NS 500 ML 2,000 MG/500 ML BAG 250 MG IVPB ×2 (03:15→16:18)
[2024-10-16] MEDS: LIDOCAINE 2% VISC SOLN 30 ML, ALUMINUM/MAGNESIUM/SIMETH SUSP 30 ML, diphenhydrAMINE HCl... PO ×4 (04:30→16:13)
[2024-10-16 05:49] VITALS: BP 128/76; PULSE 64; RESP 18; TEMP 36.5; O2SAT 97
[2024-10-16 06:52] LABS: Basophils Percent Auto 0.3 % (0.2-1.2); Eosinophils Absolute Auto 0.2 K/mm3 (0-0.3); Eosinophils Percent Auto 2.1 % (0-4.4); Hematocrit 40.2 % (37.0-47.0); Hemoglobin 12.2 g/dL (12.0-15.0); Immature Granulocyte Absolute 0.06 K/mm3 (0.00-0.031); Immature Granulocyte Percent A 0.6 % (0-0.5); Lymphocytes Percent Auto 29.9 % (18.3-44.2); Mean Corpuscular HGB Conc 30.3 g/dl (32-36); Mean Corpuscular Hemoglobin 29.2 pg (26-34); Mean Corpuscular Volume 96.2 fl (80-100); Mean Platelet Volume 9.3 fl (7.4-10.4); Monocytes Absolute Auto 0.9 K/mm3 (0.1-0.6); Monocytes Percent Auto 8.5 % (2.6-8.5); Neutrophils Absolute Auto 6.1 K/mm3 (1.3-6.7); Neutrophils Percent Auto 58.6 % (45.5-73.1); Platelet Count Result 272 k/mm3 (150-375); Red Blood Count 4.18 M/mm3 (4.2-5.4); White Blood Count 10.4 K/mm3 (4.5-10.0)
[2024-10-16 07:14] LABS: Alanine Aminotransferase 31 U/L (6-35); Albumin Level 3.5 g/dL (3.5-5.1); Alkaline Phosphatase 62 U/L (38-126); Anion Gap 6 mmol/L (4-12); Aspartate Amino Transferase 34 U/L (14-36); Bilirubin,Total 0.5 mg/dL (0.2-1.3); Blood Urea Nitrogen 14 mg/dL (7-17); Calcium 8.8 mg/dL (8.4-10.2); Carbon Dioxide 29 mmol/L (22-30); Chloride 103 mmol/L (98-107); Estimated CRCL calculation 71 ml/min; Estimated Glomerular Filt Rate > 60; Glucose 164 mg/dL (65-110); Magnesium 1.7 mg/dL (1.6-2.3); Sodium 138 mmol/L (137-145); Total Protein 7.1 g/dL (6.3-8.2)
[2024-10-16 08:06] LABS: Glucose Point of Care 176 mg/dl (65-105)
[2024-10-16] MEDS: ONDANSETRON INJ 4 MG/2 ML VIAL IV PUSH (09:41)
[2024-10-16] MEDS: ENOXAPARIN 30 MG/0.3 ML SYRINGE SUB-Q ×2 (09:42→22:40)
[2024-10-16] MEDS: ENOXAPARIN 100 MG/ML SYRINGE 95 MG SUB-Q ×2 (09:42→22:40)
[2024-10-16] MEDS: oxyBUTYnin CHLORIDE XL 5 MG TAB.ER.24 15 MG PO (09:42)
[2024-10-16] MEDS: DICLOFENAC SODIUM 1% 100 GM GEL (*BKC) 1 APPLIC TOPICAL (09:43)
[2024-10-16] MEDS: PANTOPRAZOLE 40 MG TABLET PO (09:43)
[2024-10-16] MEDS: predniSONE 10 MG TABLET PO (09:43)
[2024-10-16] MEDS: GABAPENTIN 300 MG CAPSULE PO ×3 (09:43→16:12)
[2024-10-16] MEDS: FLUCONAZOLE 100 MG/NACL 50 ML 100 MG/50 ML BTL 50 MG IVPB (09:43)
[2024-10-16] MEDS: INSULIN ASPART (*BKC) 100 UNITS/ML 10 UNITS SUB-Q ×3 (09:44→17:02)
[2024-10-16] MEDS: MICONAZOLE NITRATE 2% CREAM 30 GM TUBE 1 APPLIC TOPICAL (09:44)
--- NOTE | 2024-10-16 10:38 | P.PNGS_ITS ---
Progress Note: A&P Assessment and Plan (1) Abdominal wall cellulitis: Code(s): L03.311 - Cellulitis of abdominal wall Status: Acute Assessment and Plan: * Erythema improved today. Repeat CT scan of the abdomen and pelvis showed no abscess. In comparison to her previous CT, the area of inflammation has improved and appears smaller. * Continue IV antibiotics and IV Diflucan for today. Will reassess labs and e xam tomorrow. Continue to hold Xarelto for now in case of need for surgical intervention. She is currently on therapeutic-dosed Lovenox. (2) Abdominal pain: Qualifiers: Abdominal location: periumbilical Qualified Code(s): R10.33 - Periumbilical pain Code(s): R10.9 - Unspecified abdominal pain Status: Acute Assessment and Plan: * Patient now complaining of right mid-abdominal pain that started yesterday. It is exacerbated by eating and associated with nausea and bloating. Continue dilaudid and Lapel for pain. Will continue to monitor. (3) Uncontrolled diabetes mellitus: Qualifiers: Diabetes mellitus type: type 2 Glycemic state: with hyperglycemia Qualified Code(s): E11.65 - Type 2 diabetes mellitus with hyperglycemia Status: Acute Assessment and Plan: * Continue close glucose monitoring her and management as per hospitalist service. (4) Morbid obesity with BMI of 50.0-59.9, adult: Code(s): E66.01 - Morbid (severe) obesity due to excess calories; Z68.43 - Body mass index [BMI] 50.0-59.9, adult Status: Acute Plan I have discussed the patient's case and plan of care with Dr. Shi. Subjective Subjective Date/Time Seen: 10/16/24 10:38 Patient reports: other Interval history: Patient notes some anterior right mid abdominal pain worsened with eating that started yesterday. This pain has occurred with every meal since yesterday and is associated with nausea, but no vomiting. She also notes bloating and fullness to the point where she sometimes feels short of breath from this after eating. WBC 10.4. Vital signs stable. Minimal redness diffusely to the panus. Exam GI: Inspection: non-distended, Pannus present, obesity and other (Very mild erythema in the infraumbilical area, no induration) GI Palp: Yes Soft to palpation and Yes Tenderness to palpation present (GI) (tenderness to palpation of anterior right mid-abdominal region) Auscultation: normal bowel sounds Other: Erythema and excoriation in the skin fold beneath her pannus consistent with a fungal dermatitis. Objective Data Vital Signs Vital Signs: Vital Signs - 24 hr 10/15/24 14:00 10/15/24 20:17 10/15/24 22:40 Temperature 97.0 F L 97.8 F Pulse Rate 70 77 69 Respiratory Rate 18 16 25 H Blood Pressure 134/64 134/68 Pulse Oximetry 99 98 97 Oxygen Delivery CPAP 10/16/24 02:04 10/16/24 05:49 10/16/24 08:00 Temperature 97.7 F Pulse Rate 63 64 Respiratory Rate 16 18 Blood Pressure 128/76 Pulse Oximetry 96 97 Oxygen Delivery CPAP CPAP Intake/Output Intake/Output: Intake & Output 10/13/24 10/14/24 10/15/24 10/16/24 23:59 23:59 23:59 23:59 Intake Total 1530 2246 1290 500 Output Total 0 0 Balance 1530 2246 1290 500 Meds/Results Medications: Active Medications Generic Name Dose Route Start Last Admin Trade Name Freq PRN Reason Stop Dose Admin Hydrocodone Bitart/Acetaminophen 1 tab 10/12/24 20:55 10/16/24 06:06 Hydrocodone/Acetaminophen (*Crx) 10-325 Mg Tablet PO 1 tab Q6H PRN Administration pain (scale score 7-10) Albuterol 1 puff 10/12/24 23:26 Albuterol Sulfate (*Sp) Aerosol 1 Puff INHALATION QIDRT PRN shortness of breath or wheezing Lidocaine HCl 30 ml/ Al Hydrox 0 ml 10/15/24 05:00 10/16/24 09:44 /Mg Hydrox/Simethicone 30 ml/ PO 30 ml Diphenhydramine HCl 75 mg Q4HWA RODERICK Administration Dextrose 12.5 gm 10/12/24 20:54 Dextrose 50% 25 Gm/50 Ml Syringe IV PUSH PRN PRN Hypoglycemia Protocol Diclofenac Sodium 1 applic 10/14/24 21:45 10/16/24 09:43 Diclofenac Sodium 1% 100 Gm Gel (*Bkc) TOPICAL 1 applic QID RODERICK Administration Enoxaparin Sodium 30 mg 10/13/24 21:00 10/16/24 09:42 Enoxaparin 30 Mg/0.3 Ml Syringe SUB-Q 30 mg Q12HR [facility]ODERICK Administration Enoxaparin Sodium 95 mg 10/13/24 21:00 10/16/24 09:42 Enoxaparin 100 Mg/Ml Syringe SUB-Q 95 mg Q12HR RODERICK Administration Gabapentin 300 mg 10/12/24 23:30 10/16/24 09:43 Gabapentin 300 Mg Capsule PO 300 mg TID RODERICK Administration Glucagon 1 mg 10/12/24 20:54 Glucagon For Inj 1 Mg Vial IM PRN PRN Hypoglycemia Protocol Glucose 15 gm 10/12/24 20:54 Glucose Oral Gel 15 Gm Of Glucse In 37.5 Gm Tube PO PRN PRN Hypoglycemia Protocol Hydromorphone HCl 0.5 mg 10/12/24 20:48 10/15/24 20:35 Hydromorphone Hcl Inj (*Crx) 2 Mg/Ml Vial IV PUSH 0.5 mg Q3H PRN Administration Breakthrough Pain Dextrose 1,000 mls @ 100 mls/hr 10/12/24 20:54 Dextrose 5% 1,000 Ml IVPB PRN PRN Hypoglycemia Protocol Fluconazole/Dextrose 100 mg in 50 mls @ 50 mls/hr 10/13/24 13:20 10/16/24 09:43 Diflucan 100 Mg/Nacl 50 Ml IVPB 50 mls/hr DAILY RODERICK Administration Vancomycin HCl 2,000 mg in 500 mls @ 250 mls/hr 10/15/24 03:00 10/16/24 05:15 Vancomycin 2,000 Mg/Ns 500 Ml IVPB Infused Q12H [facility] Infusion Insulin Aspart 1 - 3 units 10/12/24 21:00 10/15/24 20:37 Insulin Aspart (*Bkc) 100 Units/Ml SUB-Q 2 units HS [facility]ODERICK Administration Protocol Insulin Aspart 0 units 10/13/24 12:00 10/16/24 09:31 Insulin Aspart (*Bkc) 100 Units/Ml SUB-Q Not Given TIDWM [facility] Protocol Insulin Aspart 10 units 10/14/24 17:00 10/16/24 09:44 Insulin Aspart (*Bkc) 100 Units/Ml SUB-Q 10 units TIDWM [facility]ERICK Administration Insulin Glargine 40 units 10/13/24 09:00 10/13/24 10:10 Insulin Glargine (*Bkc) 100 Units/Ml SUB-Q Not Given QAM [facility] Miconazole Nitrate 1 applic 10/13/24 09:00 10/16/24 09:44 Miconazole Nitrate 2% Cream 30 Gm Tube TOPICAL 1 applic Q12HR [facility]ODERICK Administration Non-Formulary Medication 25 mg 10/12/24 23:30 10/15/24 20:41 Exemestane PO 11/11/24 23:29 25 mg HS RODERICK Administration Ondansetron HCl 4 mg 10/15/24 09:22 10/16/24 09:41 Ondansetron Inj 4 Mg/2 Ml Vial IV PUSH 4 mg Q4H PRN Administration Nausea And Vomiting Oxybutynin Chloride 15 mg 10/13/24 09:00 10/16/24 09:42 Oxybutynin Chloride Xl 5 Mg Tab.Er.24 PO 15 mg DAILY RODERICK Administration Pantoprazole Sodium 40 mg 10/13/24 09:00 10/16/24 09:43 Pantoprazole 40 Mg Tablet PO 40 mg Q12HR RODERICK Administration Prednisone 10 mg 10/13/24 09:00 10/16/24 09:43 Prednisone 10 Mg Tablet PO 10 mg DAILY RODERICK Administration Promethazine HCl 12.5 mg 10/13/24 17:57 Promethazine Hcl 25 Mg/Ml Ampul IV PUSH Q6H PRN Nausea And Vomiting Rivaroxaban 20 mg 10/13/24 09:00 10/13/24 09:00 Rivaroxaban 20 Mg Tablet PO Not Given 0900 [facility] Ropinirole HCl 5 mg 10/12/24 23:30 10/15/24 20:37 Ropinirole Hcl 1 Mg Tablet PO 5 mg HS RODERICK Administration Radiology Results: ITS Impressions Abdomen/Pelvis CT 10/15/24 07:10 Impression: Possible mild inflammatory process in the anterior subcutaneous soft tissues about the anterior midline surgical scar. No abscess. Stable subcentimeter nodules at the left lung base, as detailed above. Labs Labs: Laboratory Results - last 24 hr 10/15/24 10/15/24 10/15/24 11:35 16:08 19:38 WBC RBC Hgb Hct MCV MCH MCHC RDW Plt Count MPV Immature Gran % (Auto) Neut % (Auto) Lymph % (Auto) Stevens % (Auto) Eos % (Auto) Baso % (Auto) Lymph # (Auto) Stevens # (Auto) Eos # (Auto) Baso # (Auto) Abs Immat Gran (auto) Absolute Neuts (auto) Absolute Nucleated RBC Nucleated RBC % Sodium Potassium Chloride Carbon Dioxide Anion Gap BUN Creatinine Estim Creat Clear Calc Estimated GFR Glucose POC Capillary Glucose 212 H 233 H 257 H Calcium Magnesium Total Bilirubin AST ALT Alkaline Phosphatase Total Protein Albumin 10/16/24 10/16/24 06:17 07:57 WBC 10.4 H RBC 4.18 L Hgb 12.2 Hct 40.2 MCV 96.2 MCH 29.2 MCHC 30.3 L RDW 14.0 Plt Count 272 MPV 9.3 Immature Gran % (Auto) 0.6 H Neut % (Auto) 58.6 Lymph % (Auto) 29.9 Stevens % (Auto) 8.5 Eos % (Auto) 2.1 Baso % (Auto) 0.3 Lymph # (Auto) 3.10 Stevens # (Auto) 0.9 H Eos # (Auto) 0.2 Baso # (Auto) 0.0 Abs Immat Gran (auto) 0.06 H Absolute Neuts (auto) 6.1 Absolute Nucleated RBC 0.000 Nucleated RBC % 0.0 Sodium 138 Potassium 4.0 Chloride 103 Carbon Dioxide 29 Anion Gap 6 BUN 14 Creatinine 0.83 Estim Creat Clear Calc 71 Estimated GFR > 60 Glucose 164 H POC Capillary Glucose 176 H Calcium 8.8 Magnesium 1.7 Total Bilirubin 0.5 AST 34 ALT 31 Alkaline Phosphatase 62 Total Protein 7.1 Albumin 3.5
[2024-10-16] MEDS: HYDROmorphone HCL INJ (*CRX) 2 MG/ML VIAL 0.5 MG IV PUSH ×2 (10:56→19:45)
[2024-10-16 11:50] LABS: Glucose Point of Care 198 mg/dl (65-105)
[2024-10-16 14:00] VITALS: BP 101/48; PULSE 70; RESP 18; TEMP 36.3; O2SAT 98
--- NOTE | 2024-10-16 14:46 | P.PNIM_ITS ---
Progress Note: A&P Assessment and Plan (1) Abdominal pain: Qualifiers: Abdominal location: periumbilical Qualified Code(s): R10.33 - Periumbilical pain Code(s): R10.9 - Unspecified abdominal pain Status: Acute (2) Cellulitis of abdominal wall: Code(s): L03.311 - Cellulitis of abdominal wall Status: Acute (3) Uncontrolled diabetes mellitus: Qualifiers: Diabetes mellitus type: type 2 Glycemic state: with hyperglycemia Qualified Code(s): E11.65 - Type 2 diabetes mellitus with hyperglycemia Status: Acute (4) Oral ulcer: Code(s): K12.1 - Other forms of stomatitis Status: Acute (5) RLS (restless legs syndrome): Code(s): G25.81 - Restless legs syndrome Status: Acute (6) Chronic back pain: Qualifiers: Back pain laterality: bilateral Back pain location: low back pain Sciatica presence: unspecified whether sciatica present Qualified Code(s): M54.50 - Low back pain, unspecified; G89.29 - Other chronic pain Code(s): M54.9 - Dorsalgia, unspecified; G89.29 - Other chronic pain Status: Acute (7) Diffuse arthralgia: Code(s): M25.50 - Pain in unspecified joint Status: Acute (8) LUL on CPAP: Code(s): G47.33 - Obstructive sleep apnea (adult) (pediatric); Z99.89 - Dependence on other enabling machines and devices Status: Acute (9) Chronic anticoagulation: Code(s): Z79.01 - MCFP (current) use of anticoagulants Status: Acute (10) Candidiasis of skin: Code(s): B37.2 - Candidiasis of skin and nail Status: Acute Plan The patient has recurrent/persistent periumbilical pain. She was recently treated for cellulitis and discharged from the hospital just 24 hours ago. She has not had any fevers or chills but reports worsening pain. CT of the abdomen pelvis suggested possible worsening of inflammation in the area of the patient's pain. Imaging a personally reviewed. There may be an area that is starting to developed more of a contiguous pattern to the abdominal wall. Will continue patient on vent linezolid she was discharged on and request surgical consultation. The patient does have persistent leukocytosis but it is unclear if this is due to infection verses chronic steroid use. She is on 10 mg of prednisone persistently daily until she follows up with Rheumatology next month for further evaluation and and/or definitive treatment for possible polymyositis (or possible polymyalgia rheumatica?). Will give the patient low-dose Dilaudid for breakthrough pain. However patient does have some chronic pain issues which makes further delineation of the cause of the patient's pain difficult. Increasing ant abdominal wall mass/density CT AP reviewed . repeat CT abdomen and pelvis showed no abscess but still mild inflammatory process in cole anterior subcut soft rissues Continue Vanc and fluconazole No erythema on exam Gen surgery on board, considering possible surgical internvetion Epigastric pain worse with food likely PUD started on Protonix 40mg bid monitor oral ulcer. She states she was given some cream for the wound in her mouth and that if the symptoms do not improve she will need a biopsy in the near future. GERD on Protonix p.o. b.i.d. Chronic back pain and RLS continue [place] and [facility]quip intertriginous candidiasis continue Miconazole Heart murmur Outpatient ECHO asymptomatic DVT/PE on Xarelto DM2 SSI with accucheks Breast ca s/p mastectomy DVT prophylaxis on Xarelto whicih is on hold in case she need surgery Subjective Date/time seen: 10/16/24 14:46 Interval history: Complained of abd pain with food especially in the epigastric region Review of Systems Review of Systems: 12 systems were reviewed with pertinent positives and negatives per HPI. Except as documented in the HPI, all other systems were reviewed and are negative. Exam Narrative: Weight 126.4 kg BMI 52.7 Const: Other: Morbidly obese, no acute distress HENMT: Other: Mucous membranes are moist, no oral pharyngeal erythema, markedly crowded posterior oropharynx Eyes: Other: Pupils are equal and reactive, no scleral icterus, no conjunctival pallor Neck: Other: No JVD, no thyromegaly Resp: Other: Clear to auscultation bilaterally, no increased work of breathing Cardio: Other: Regular rate, regular rhythm, 2+ bilateral radial pedal pulses, no JVD, 2/6 systolic murmur GI: Other: Obese, soft, tender in the periumbilical region and in the lower pannus, normoactive bowel sounds no abdominal wall erythema new epigastric tenderness Skin: Other: Candidiasis in the pannus fold, small punctate areas of erythema within the umbilicus Neuro: Other: Alert orient x4, speech is clear, no facial asymmetry, no localizing neurologic deficits noted during the course of conversation Extrem: Other: No clubbing, cyanosis or edema Psych: Other: Appropriate mood, pleasant and cooperative Objective Data Vital Signs Vital Signs: Vital Signs - 24 hr 10/15/24 20:17 10/15/24 22:40 10/16/24 02:04 Temperature 97.8 F Pulse Rate 77 69 63 Respiratory Rate 16 25 H 16 Blood Pressure 134/68 Pulse Oximetry 98 97 96 Oxygen Delivery CPAP CPAP 10/16/24 05:49 10/16/24 08:00 10/16/24 14:00 Temperature 97.7 F 97.4 F L Pulse Rate 64 70 Respiratory Rate 18 18 Blood Pressure 128/76 101/48 L Pulse Oximetry 97 98 Oxygen Delivery CPAP Intake/Output Intake/Output: Intake & Output 10/13/24 10/14/24 10/15/24 10/16/24 23:59 23:59 23:59 23:59 Intake Total 1530 2246 1290 740 Output Total 0 0 Balance 1530 2246 1290 740 Meds/Results Medications: Active Medications Generic Name Dose Route Start Last Admin Trade Name Freq PRN Reason Stop Dose Admin Hydrocodone Bitart/Acetaminophen 1 tab 10/12/24 20:55 10/16/24 13:57 Hydrocodone/Acetaminophen (*Crx) 10-325 Mg Tablet PO 1 tab Q6H PRN Administration pain (scale score 7-10) Albuterol 1 puff 10/12/24 23:26 Albuterol Sulfate (*Sp) Aerosol 1 Puff INHALATION QIDRT PRN shortness of breath or wheezing Lidocaine HCl 30 ml/ Al Hydrox 0 ml 10/15/24 05:00 10/16/24 12:10 /Mg Hydrox/Simethicone 30 ml/ PO 30 ml Diphenhydramine HCl 75 mg Q4HWA RODERICK Administration Dextrose 12.5 gm 10/12/24 20:54 Dextrose 50% 25 Gm/50 Ml Syringe IV PUSH PRN PRN Hypoglycemia Protocol Diclofenac Sodium 1 applic 10/14/24 21:45 10/16/24 12:10 Diclofenac Sodium 1% 100 Gm Gel (*Bkc) TOPICAL Not Given QID RODERICK Enoxaparin Sodium 30 mg 10/13/24 21:00 10/16/24 09:42 Enoxaparin 30 Mg/0.3 Ml Syringe SUB-Q 30 mg Q12HR RODERICK Administration Enoxaparin Sodium 95 mg 10/13/24 21:00 10/16/24 09:42 Enoxaparin 100 Mg/Ml Syringe SUB-Q 95 mg Q12HR RODERICK Administration Gabapentin 300 mg 10/12/24 23:30 10/16/24 12:10 Gabapentin 300 Mg Capsule PO 300 mg TID RODERICK Administration Glucagon 1 mg 10/12/24 20:54 Glucagon For Inj 1 Mg Vial IM PRN PRN Hypoglycemia Protocol Glucose 15 gm 10/12/24 20:54 Glucose Oral Gel 15 Gm Of Glucse In 37.5 Gm Tube PO PRN PRN Hypoglycemia Protocol Hydromorphone HCl 0.5 mg 10/12/24 20:48 10/16/24 10:56 Hydromorphone Hcl Inj (*Crx) 2 Mg/Ml Vial IV PUSH 0.5 mg Q3H PRN Administration Breakthrough Pain Dextrose 1,000 mls @ 100 mls/hr 10/12/24 20:54 Dextrose 5% 1,000 Ml IVPB PRN PRN Hypoglycemia Protocol Fluconazole/Dextrose 100 mg in 50 mls @ 50 mls/hr 10/13/24 13:20 10/16/24 09:43 Diflucan 100 Mg/Nacl 50 Ml IVPB 50 mls/hr DAILY RODERICK Administration Vancomycin HCl 2,000 mg in 500 mls @ 250 mls/hr 10/15/24 03:00 10/16/24 05:15 Vancomycin 2,000 Mg/Ns 500 Ml IVPB Infused Q12H RODERICK Infusion Insulin Aspart 1 - 3 units 10/12/24 21:00 10/15/24 20:37 Insulin Aspart (*Bkc) 100 Units/Ml SUB-Q 2 units HS RODERICK Administration Protocol Insulin Aspart 0 units 10/13/24 12:00 10/16/24 11:49 Insulin Aspart (*Bkc) 100 Units/Ml SUB-Q Not Given TIDWM [facility] Protocol Insulin Aspart 10 units 10/14/24 17:00 10/16/24 11:50 Insulin Aspart (*Bkc) 100 Units/Ml SUB-Q 10 units TIDWM [facility] Administration Insulin Glargine 40 units 10/13/24 09:00 10/13/24 10:10 Insulin Glargine (*Bkc) 100 Units/Ml SUB-Q Not Given QAM [facility] Miconazole Nitrate 1 applic 10/13/24 09:00 10/16/24 09:44 Miconazole Nitrate 2% Cream 30 Gm Tube TOPICAL 1 applic Q12HR RODERICK Administration Non-Formulary Medication 25 mg 10/12/24 23:30 10/15/24 20:41 Exemestane PO 11/11/24 23:29 25 mg HS RODERICK Administration Ondansetron HCl 4 mg 10/15/24 09:22 10/16/24 09:41 Ondansetron Inj 4 Mg/2 Ml Vial IV PUSH 4 mg Q4H PRN Administration Nausea And Vomiting Oxybutynin Chloride 15 mg 10/13/24 09:00 10/16/24 09:42 Oxybutynin Chloride Xl 5 Mg Tab.Er.24 PO 15 mg DAILY RODERICK Administration Pantoprazole Sodium 40 mg 10/13/24 09:00 10/16/24 09:43 Pantoprazole 40 Mg Tablet PO 40 mg Q12HR RODERICK Administration Prednisone 10 mg 10/13/24 09:00 10/16/24 09:43 Prednisone 10 Mg Tablet PO 10 mg DAILY RODERICK Administration Promethazine HCl 12.5 mg 10/13/24 17:57 Promethazine Hcl 25 Mg/Ml Ampul IV PUSH Q6H PRN Nausea And Vomiting Rivaroxaban 20 mg 10/13/24 09:00 10/13/24 09:00 Rivaroxaban 20 Mg Tablet PO Not Given 0900 [facility] Ropinirole HCl 5 mg 10/12/24 23:30 10/15/24 20:37 Ropinirole Hcl 1 Mg Tablet PO 5 mg HS RODERICK Administration Radiology Results: ITS Impressions Abdomen/Pelvis CT 10/15/24 07:10 Impression: Possible mild inflammatory process in the anterior subcutaneous soft tissues about the anterior midline surgical scar. No abscess. Stable subcentimeter nodules at the left lung base, as detailed above. Labs Labs: Laboratory Results - last 24 hr 10/15/24 10/15/24 10/16/24 16:08 19:38 06:17 WBC 10.4 H RBC 4.18 L Hgb 12.2 Hct 40.2 MCV 96.2 MCH 29.2 MCHC 30.3 L RDW 14.0 Plt Count 272 MPV 9.3 Immature Gran % (Auto) 0.6 H Neut % (Auto) 58.6 Lymph % (Auto) 29.9 [place] % (Auto) 8.5 Eos % (Auto) 2.1 Baso % (Auto) 0.3 Lymph # (Auto) 3.10 [place] # (Auto) 0.9 H Eos # (Auto) 0.2 Baso # (Auto) 0.0 Abs Immat Gran (auto) 0.06 H Absolute Neuts (auto) 6.1 Absolute Nucleated RBC 0.000 Nucleated RBC % 0.0 Sodium 138 Potassium 4.0 Chloride 103 Carbon Dioxide 29 Anion Gap 6 BUN 14 Creatinine 0.83 Estim Creat Clear Calc 71 Estimated GFR > 60 Glucose 164 H POC Capillary Glucose 233 H 257 H Calcium 8.8 Magnesium 1.7 Total Bilirubin 0.5 AST 34 ALT 31 Alkaline Phosphatase 62 Total Protein 7.1 Albumin 3.5 10/16/24 10/16/24 07:57 11:44 WBC RBC Hgb Hct MCV MCH MCHC RDW Plt Count MPV Immature Gran % (Auto) Neut % (Auto) Lymph % (Auto) [place] % (Auto) Eos % (Auto) Baso % (Auto) Lymph # (Auto) [place] # (Auto) Eos # (Auto) Baso # (Auto) Abs Immat Gran (auto) Absolute Neuts (auto) Absolute Nucleated RBC Nucleated RBC % Sodium Potassium Chloride Carbon Dioxide Anion Gap BUN Creatinine Estim Creat Clear Calc Estimated GFR Glucose POC Capillary Glucose 176 H 198 H Calcium Magnesium Total Bilirubin AST ALT Alkaline Phosphatase Total Protein Albumin Quality VTE Prophylaxis VTE prophylaxis: pharmacologic ordered (Continue home Eliquis)
[2024-10-16 15:33] LABS: Vancomycin Trough 17.1 ug/mL (10.0-20.0)
[2024-10-16] MEDS: PANTOPRAZOLE SODIUM IV 40 MG VIAL IV PUSH ×2 (16:12→22:40)
[2024-10-16] MEDS: INSULIN ASPART (*BKC) 100 UNITS/ML SUB-Q ×2 (17:02→22:38)
[2024-10-16 17:06] LABS: Glucose Point of Care 299 mg/dl (65-105)
[2024-10-16 20:43] LABS: Glucose Point of Care 251 mg/dl (65-105)
[2024-10-16 20:50] LABS: Glucose Point of Care 274 mg/dl (65-105)
[2024-10-16 20:57] VITALS: BP 154/61; PULSE 78; RESP 20; TEMP 35.8; O2SAT 98
[2024-10-16 22:34] LABS: Glucose Point of Care 249 mg/dl (65-105)
[2024-10-16] MEDS: rOPINIRole HCL 1 MG TABLET 5 MG PO (22:41)
[2024-10-16 23:04] VITALS: PULSE 66; RESP 19; O2SAT 94
[2024-10-17] VITALS (7 sets, daily range): BP systolic 125–161; BP diastolic 58–100; PULSE 61–74; RESP 18–20; TEMP 35.4–36.5; O2SAT 94–100
[2024-10-17] MEDS: HYDROmorphone HCL INJ (*CRX) 2 MG/ML VIAL 0.5 MG IV PUSH (02:43)
[2024-10-17] MEDS: VANCOMYCIN 2,000 MG/NS 500 ML 2,000 MG/500 ML BAG 250 MG IVPB ×2 (05:56→17:01)
[2024-10-17 07:40] LABS: Basophils Percent Auto 0.4 % (0.2-1.2); Eosinophils Absolute Auto 0.2 K/mm3 (0-0.3); Eosinophils Percent Auto 1.6 % (0-4.4); Hematocrit 39.7 % (37.0-47.0); Immature Granulocyte Absolute 0.09 K/mm3 (0.00-0.031); Immature Granulocyte Percent A 0.8 % (0-0.5); Lymphocytes Absolute Auto 3.32 K/mm3 (0.9-3.2); Lymphocytes Percent Auto 29.4 % (18.3-44.2); Mean Corpuscular HGB Conc 30.2 g/dl (32-36); Mean Corpuscular Hemoglobin 28.8 pg (26-34); Mean Corpuscular Volume 95.2 fl (80-100); Mean Platelet Volume 8.9 fl (7.4-10.4); Monocytes Absolute Auto 0.9 K/mm3 (0.1-0.6); Monocytes Percent Auto 7.7 % (2.6-8.5); Neutrophils Absolute Auto 6.8 K/mm3 (1.3-6.7); Neutrophils Percent Auto 60.1 % (45.5-73.1); Platelet Count Result 228 k/mm3 (150-375); Red Blood Count 4.17 M/mm3 (4.2-5.4); Red Cell Distribution Width 13.7 % (11.5-14.5); White Blood Count 11.3 K/mm3 (4.5-10.0)
[2024-10-17 07:47] LABS: Glucose Point of Care 169 mg/dl (65-105)
[2024-10-17 07:51] LABS: Alanine Aminotransferase 37 U/L (6-35); Albumin Level 3.4 g/dL (3.5-5.1); Alkaline Phosphatase 60 U/L (38-126); Anion Gap 5 mmol/L (4-12); Aspartate Amino Transferase 35 U/L (14-36); Bilirubin,Total 0.4 mg/dL (0.2-1.3); Blood Urea Nitrogen 10 mg/dL (7-17); Calcium 8.6 mg/dL (8.4-10.2); Carbon Dioxide 26 mmol/L (22-30); Chloride 103 mmol/L (98-107); Estimated CRCL calculation 91 ml/min; Estimated Glomerular Filt Rate > 60; Glucose 155 mg/dL (65-110); Magnesium 1.6 mg/dL (1.6-2.3); Potassium 3.8 mmol/L (3.4-5.0); Sodium 134 mmol/L (137-145); Total Protein 6.9 g/dL (6.3-8.2)
[2024-10-17] MEDS: predniSONE 10 MG TABLET PO (10:07)
[2024-10-17] MEDS: oxyBUTYnin CHLORIDE XL 5 MG TAB.ER.24 15 MG PO (10:07)
[2024-10-17] MEDS: LIDOCAINE 2% VISC SOLN 30 ML, ALUMINUM/MAGNESIUM/SIMETH SUSP 30 ML, diphenhydrAMINE HCl... PO ×4 (10:08→21:08)
[2024-10-17] MEDS: PANTOPRAZOLE SODIUM IV 40 MG VIAL IV PUSH ×2 (10:08→21:03)
[2024-10-17] MEDS: ENOXAPARIN 100 MG/ML SYRINGE 95 MG SUB-Q ×2 (10:09→21:05)
[2024-10-17] MEDS: MICONAZOLE NITRATE 2% CREAM 30 GM TUBE 1 APPLIC TOPICAL (10:09)
[2024-10-17] MEDS: ENOXAPARIN 30 MG/0.3 ML SYRINGE SUB-Q ×2 (10:10→21:05)
[2024-10-17] MEDS: DICLOFENAC SODIUM 1% 100 GM GEL (*BKC) 1 APPLIC TOPICAL ×3 (10:10→17:02)
[2024-10-17] MEDS: INSULIN ASPART (*BKC) 100 UNITS/ML 10 UNITS SUB-Q ×3 (10:12→17:06)
[2024-10-17] MEDS: FLUCONAZOLE 100 MG/NACL 50 ML 100 MG/50 ML BTL 50 MG IVPB (10:12)
[2024-10-17] MEDS: HYDROcodone/acetaminophen (*CRX) 10-325 MG TABLET 1 TAB PO ×2 (10:15→21:04)
[2024-10-17] MEDS: GABAPENTIN 300 MG CAPSULE PO ×3 (10:15→17:01)
--- NOTE | 2024-10-17 10:22 | PCNWS ---
Weekly nutritional screen. Patient is tolerating current diabetic diet with adequate intake 100% of meals, glucose fairly well controlled. No weight loss reported. No nutritional recommendations at this time.
--- NOTE | 2024-10-17 10:41 | P.PNGS_ITS ---
Progress Note: A&P Assessment and Plan (1) Abdominal wall cellulitis: Code(s): L03.311 - Cellulitis of abdominal wall Status: Acute Assessment and Plan: * Repeat CT scan of the abdomen and pelvis showed no abscess and overall appears to be improving. Although, she continues to have abdominal pain. She is complaining that her pain is aggravated by eating and is relieved by Protonix and IV pain medication. She had evidence of severe reflux on an office procedure by ENT as an outpatient. This may be a separate upper GI issue causing her symptoms rather than the infectious process in her lower abdominal wall. Will discuss again with Dr. Shi. Continue IV antibiotics and IV Diflucan for today. Continue to hold Xarelto for now in case of need for surgical intervention. She is currently on therapeutic-dosed Lovenox. (2) Abdominal pain: Qualifiers: Abdominal location: periumbilical Qualified Code(s): R10.33 - Periumbilical pain Code(s): R10.9 - Unspecified abdominal pain Status: Acute Assessment and Plan: * Abdominal pain continues to changes, but is aggravated by eating. See plan above. May need to consider GI consultation if not improved and suspicious for an alternative etiology. (3) Uncontrolled diabetes mellitus: Qualifiers: Diabetes mellitus type: type 2 Glycemic state: with hyperglycemia Qualified Code(s): E11.65 - Type 2 diabetes mellitus with hyperglycemia Status: Acute (4) Morbid obesity with BMI of 50.0-59.9, adult: Code(s): E66.01 - Morbid (severe) obesity due to excess calories; Z68.43 - Body mass index [BMI] 50.0-59.9, adult Status: Acute Plan I have discussed the patient's case and plan of care with Dr. Shi. Subjective Subjective Date/Time Seen: 10/17/24 10:41 Interval history: Patient still complaining of pain and taking both oral and IV pain medication for breakthrough pain. She reports needing the IV pain medication after eating. Her pain is aggravated by eating. She reports upper abdominal bloating once she eats that causes a lower abdominal pain. She does have a history of gastroparesis and a recent visit with ENT and had a nasolaryngoscopy that showed findings of severe reflux. She was started on IV protonix in the hospital, which does seem to relieve her symptoms after eating. Hospitalist also starting sucralfate today. Exam GI: Inspection: non-distended, Pannus present and obesity GI Palp: Yes Soft to palpation, Yes Tenderness to palpation present (GI) (mildly tender across the lower abdomen) and No Guarding due to palpation present (GI) Auscultation: normal bowel sounds Other: No redness in the periumbilical region, possibly slight erythema in the bilateral lower pannus Skin fold beneath the pannus shows improved erythema and excoriation, this appears to be healing well Objective Data Vital Signs Vital Signs: Vital Signs - 24 hr 10/16/24 14:00 10/16/24 20:00 10/16/24 20:57 Temperature 97.4 F L 96.4 F L Pulse Rate 70 78 Respiratory Rate 18 20 Blood Pressure 101/48 L 154/61 H Pulse Oximetry 98 98 Oxygen Delivery CPAP 10/16/24 23:04 10/17/24 02:23 10/17/24 05:59 Temperature 95.8 F L Pulse Rate 66 63 61 Respiratory Rate 19 20 20 Blood Pressure 137/69 Pulse Oximetry 94 94 97 Oxygen Delivery CPAP CPAP Intake/Output Intake/Output: Intake & Output 10/14/24 10/15/24 10/16/24 10/17/24 23:59 23:59 23:59 23:59 Intake Total 2246 1290 1530 480 Output Total 0 0 Balance 2246 1290 1530 480 Meds/Results Medications: Active Medications Generic Name Dose Route Start Last Admin Trade Name Freq PRN Reason Stop Dose Admin Hydrocodone Bitart/Acetaminophen 1 tab 10/12/24 20:55 10/17/24 10:15 Hydrocodone/Acetaminophen (*Crx) 10-325 Mg Tablet PO 1 tab Q6H PRN Administration pain (scale score 7-10) Albuterol 1 puff 10/12/24 23:26 Albuterol Sulfate (*Sp) Aerosol 1 Puff INHALATION QIDRT PRN shortness of breath or wheezing Lidocaine HCl 30 ml/ Al Hydrox 0 ml 10/15/24 05:00 10/17/24 10:08 /Mg Hydrox/Simethicone 30 ml/ PO 5 ml Diphenhydramine HCl 75 mg Q4HWA RODERICK Administration Dextrose 12.5 gm 10/12/24 20:54 Dextrose 50% 25 Gm/50 Ml Syringe IV PUSH PRN PRN Hypoglycemia Protocol Diclofenac Sodium 1 applic 10/14/24 21:45 10/17/24 10:10 Diclofenac Sodium 1% 100 Gm Gel (*Bkc) TOPICAL 1 applic QID RODERICK Administration Enoxaparin Sodium 30 mg 10/13/24 21:00 10/17/24 10:10 Enoxaparin 30 Mg/0.3 Ml Syringe SUB-Q 30 mg Q12HR RODERICK Administration Enoxaparin Sodium 95 mg 10/13/24 21:00 10/17/24 10:09 Enoxaparin 100 Mg/Ml Syringe SUB-Q 95 mg Q12HR RODERICK Administration Gabapentin 300 mg 10/12/24 23:30 10/17/24 10:15 Gabapentin 300 Mg Capsule PO 300 mg TID RODERICK Administration Glucagon 1 mg 10/12/24 20:54 Glucagon For Inj 1 Mg Vial IM PRN PRN Hypoglycemia Protocol Glucose 15 gm 10/12/24 20:54 Glucose Oral Gel 15 Gm Of Glucse In 37.5 Gm Tube PO PRN PRN Hypoglycemia Protocol Hydromorphone HCl 0.5 mg 10/12/24 20:48 10/17/24 02:43 Hydromorphone Hcl Inj (*Crx) 2 Mg/Ml Vial IV PUSH 0.5 mg Q3H PRN Administration Breakthrough Pain Dextrose 1,000 mls @ 100 mls/hr 10/12/24 20:54 Dextrose 5% 1,000 Ml IVPB PRN PRN Hypoglycemia Protocol Fluconazole/Dextrose 100 mg in 50 mls @ 50 mls/hr 10/13/24 13:20 10/17/24 10:12 Diflucan 100 Mg/Nacl 50 Ml IVPB 50 mls/hr DAILY RODERICK Administration Vancomycin HCl 2,000 mg in 500 mls @ 250 mls/hr 10/16/24 17:00 10/17/24 05:56 Vancomycin 2,000 Mg/Ns 500 Ml IVPB 250 mls/hr Q12H RODERICK Administration Insulin Aspart 1 - 3 units 10/12/24 21:00 10/16/24 22:38 Insulin Aspart (*Bkc) 100 Units/Ml SUB-Q 1 units HS RODERICK Administration Protocol Insulin Aspart 0 units 10/13/24 12:00 10/17/24 10:12 Insulin Aspart (*Bkc) 100 Units/Ml SUB-Q Not Given TIDWM [facility] Protocol Insulin Aspart 10 units 10/14/24 17:00 10/17/24 10:12 Insulin Aspart (*Bkc) 100 Units/Ml SUB-Q 10 units TIDWM [facility] Administration Insulin Glargine 40 units 10/13/24 09:00 10/13/24 10:10 Insulin Glargine (*Bkc) 100 Units/Ml SUB-Q Not Given QAM [facility] Miconazole Nitrate 1 applic 10/13/24 09:00 10/17/24 10:09 Miconazole Nitrate 2% Cream 30 Gm Tube TOPICAL 1 applic Q12HR RODERICK Administration Non-Formulary Medication 25 mg 10/12/24 23:30 10/16/24 23:57 Exemestane PO 11/11/24 23:29 25 mg HS RODERICK Administration Ondansetron HCl 4 mg 10/15/24 09:22 10/16/24 09:41 Ondansetron Inj 4 Mg/2 Ml Vial IV PUSH 4 mg Q4H PRN Administration Nausea And Vomiting Oxybutynin Chloride 15 mg 10/13/24 09:00 10/17/24 10:07 Oxybutynin Chloride Xl 5 Mg Tab.Er.24 PO 15 mg DAILY RODERICK Administration Pantoprazole Sodium 40 mg 10/13/24 09:00 10/16/24 09:43 Pantoprazole 40 Mg Tablet PO 40 mg Q12HR RODERICK Administration Pantoprazole Sodium 40 mg 10/16/24 14:50 10/17/24 10:08 Pantoprazole Sodium Iv 40 Mg Vial IV PUSH 40 mg Q12HR RODERICK Administration Prednisone 10 mg 10/13/24 09:00 10/17/24 10:07 Prednisone 10 Mg Tablet PO 10 mg DAILY RODERICK Administration Promethazine HCl 12.5 mg 10/13/24 17:57 Promethazine Hcl 25 Mg/Ml Ampul IV PUSH Q6H PRN Nausea And Vomiting Rivaroxaban 20 mg 10/13/24 09:00 10/13/24 09:00 Rivaroxaban 20 Mg Tablet PO Not Given 0900 [facility] Ropinirole HCl 5 mg 10/12/24 23:30 10/16/24 22:41 Ropinirole Hcl 1 Mg Tablet PO 5 mg HS RODERICK Administration Radiology Results: ITS Impressions Abdomen/Pelvis CT 10/15/24 07:10 Impression: Possible mild inflammatory process in the anterior subcutaneous soft tissues about the anterior midline surgical scar. No abscess. Stable subcentimeter nodules at the left lung base, as detailed above. Labs Labs: Laboratory Results - last 24 hr 10/16/24 10/16/24 10/16/24 11:44 15:01 16:55 WBC RBC Hgb Hct MCV MCH MCHC RDW Plt Count MPV Immature Gran % (Auto) Neut % (Auto) Lymph % (Auto) [place] % (Auto) Eos % (Auto) Baso % (Auto) Lymph # (Auto) [place] # (Auto) Eos # (Auto) Baso # (Auto) Abs Immat Gran (auto) Absolute Neuts (auto) Absolute Nucleated RBC Nucleated RBC % Sodium Potassium Chloride Carbon Dioxide Anion Gap BUN Creatinine Estim Creat Clear Calc Estimated GFR Glucose POC Capillary Glucose 198 H 299 H Calcium Magnesium Total Bilirubin AST ALT Alkaline Phosphatase Total Protein Albumin Vancomycin Trough 17.1 10/16/24 10/16/24 10/16/24 19:42 20:17 22:32 WBC RBC Hgb Hct MCV MCH MCHC RDW Plt Count MPV Immature Gran % (Auto) Neut % (Auto) Lymph % (Auto) [place] % (Auto) Eos % (Auto) Baso % (Auto) Lymph # (Auto) [place] # (Auto) Eos # (Auto) Baso # (Auto) Abs Immat Gran (auto) Absolute Neuts (auto) Absolute Nucleated RBC Nucleated RBC % Sodium Potassium Chloride Carbon Dioxide Anion Gap BUN Creatinine Estim Creat Clear Calc Estimated GFR Glucose POC Capillary Glucose 274 H 251 H 249 H Calcium Magnesium Total Bilirubin AST ALT Alkaline Phosphatase Total Protein Albumin Vancomycin Trough 10/17/24 10/17/24 07:29 07:38 WBC 11.3 H RBC 4.17 L Hgb 12.0 Hct 39.7 MCV 95.2 MCH 28.8 MCHC 30.2 L RDW 13.7 Plt Count 228 MPV 8.9 Immature Gran % (Auto) 0.8 H Neut % (Auto) 60.1 Lymph % (Auto) 29.4 [place] % (Auto) 7.7 Eos % (Auto) 1.6 Baso % (Auto) 0.4 Lymph # (Auto) 3.32 H [place] # (Auto) 0.9 H Eos # (Auto) 0.2 Baso # (Auto) 0.0 Abs Immat Gran (auto) 0.09 H Absolute Neuts (auto) 6.8 H Absolute Nucleated RBC 0.000 Nucleated RBC % 0.0 Sodium 134 L Potassium 3.8 Chloride 103 Carbon Dioxide 26 Anion Gap 5 BUN 10 Creatinine 0.63 L Estim Creat Clear Calc 91 Estimated GFR > 60 Glucose 155 H POC Capillary Glucose 169 H Calcium 8.6 Magnesium 1.6 Total Bilirubin 0.4 AST 35 ALT 37 H Alkaline Phosphatase 60 Total Protein 6.9 Albumin 3.4 L Vancomycin Trough
[2024-10-17 11:14] LABS: Glucose Point of Care 229 mg/dl (65-105)
[2024-10-17] MEDS: INSULIN ASPART (*BKC) 100 UNITS/ML SUB-Q ×3 (13:08→21:19)
--- NOTE | 2024-10-17 14:35 | P.PNIM_ITS ---
Progress Note: A&P Assessment and Plan (1) Abdominal pain: Qualifiers: Abdominal location: periumbilical Qualified Code(s): R10.33 - Periumbilical pain Code(s): R10.9 - Unspecified abdominal pain Status: Acute (2) Cellulitis of abdominal wall: Code(s): L03.311 - Cellulitis of abdominal wall Status: Acute (3) Uncontrolled diabetes mellitus: Qualifiers: Diabetes mellitus type: type 2 Glycemic state: with hyperglycemia Qualified Code(s): E11.65 - Type 2 diabetes mellitus with hyperglycemia Status: Acute (4) Oral ulcer: Code(s): K12.1 - Other forms of stomatitis Status: Acute (5) RLS (restless legs syndrome): Code(s): G25.81 - Restless legs syndrome Status: Acute (6) Chronic back pain: Qualifiers: Back pain laterality: bilateral Back pain location: low back pain Sciatica presence: unspecified whether sciatica present Qualified Code(s): M54.50 - Low back pain, unspecified; G89.29 - Other chronic pain Code(s): M54.9 - Dorsalgia, unspecified; G89.29 - Other chronic pain Status: Acute (7) Diffuse arthralgia: Code(s): M25.50 - Pain in unspecified joint Status: Acute (8) LUL on CPAP: Code(s): G47.33 - Obstructive sleep apnea (adult) (pediatric); Z99.89 - Dependence on other enabling machines and devices Status: Acute (9) Chronic anticoagulation: Code(s): Z79.01 - correction (current) use of anticoagulants Status: Acute (10) Candidiasis of skin: Code(s): B37.2 - Candidiasis of skin and nail Status: Acute Plan The patient has recurrent/persistent periumbilical pain. She was recently treated for cellulitis and discharged from the hospital just 24 hours ago. She has not had any fevers or chills but reports worsening pain. CT of the abdomen pelvis suggested possible worsening of inflammation in the area of the patient's pain. Imaging a personally reviewed. There may be an area that is starting to developed more of a contiguous pattern to the abdominal wall. Will continue patient on vent linezolid she was discharged on and request surgical consultation. The patient does have persistent leukocytosis but it is unclear if this is due to infection verses chronic steroid use. She is on 10 mg of prednisone persistently daily until she follows up with Rheumatology next month for further evaluation and and/or definitive treatment for possible polymyositis (or possible polymyalgia rheumatica?). Will give the patient low-dose Dilaudid for breakthrough pain. However patient does have some chronic pain issues which makes further delineation of the cause of the patient's pain difficult. Increasing ant abdominal wall mass/density, improving CT AP reviewed . repeat CT abdomen and pelvis showed no abscess but still mild inflammatory process in cole anterior subcut soft rissues Continue Vanc and fluconazole No erythema on exam Gen surgery on board, considering possible surgical internvetion Epigastric pain worse with food likely PUD Contineu Protonix and Started on Sucralfate monitor oral ulcer. She states she was given some cream for the wound in her mouth and that if the symptoms do not improve she will need a biopsy in the near future. GERD on Protonix p.o. b.i.d. Chronic back pain and RLS continue [place] and Requip intertriginous candidiasis continue Miconazole Heart murmur Outpatient ECHO asymptomatic DVT/PE on Xarelto DM2 SSI with accucheks Breast ca s/p mastectomy DVT prophylaxis on Xarelto Subjective Date/time seen: 10/17/24 14:35 Interval history: Noted abd pain is improving with Protonix Added Sucralfate today Review of Systems Review of Systems: 12 systems were reviewed with pertinent positives and negatives per HPI. Except as documented in the HPI, all other systems were reviewed and are negative. Exam Narrative: Weight 126.4 kg BMI 52.7 Const: Other: Morbidly obese, no acute distress HENMT: Other: Mucous membranes are moist, no oral pharyngeal erythema, markedly crowded posterior oropharynx Eyes: Other: Pupils are equal and reactive, no scleral icterus, no conjunctival pallor Neck: Other: No JVD, no thyromegaly Resp: Other: Clear to auscultation bilaterally, no increased work of breathing Cardio: Other: Regular rate, regular rhythm, 2+ bilateral radial pedal pulses, no JVD, 2/6 systolic murmur GI: Other: Obese, soft, tender in the periumbilical region and in the lower pannus, normoactive bowel sounds no abdominal wall erythema new epigastric tenderness Skin: Other: Candidiasis in the pannus fold, small punctate areas of erythema within the umbilicus Neuro: Other: Alert orient x4, speech is clear, no facial asymmetry, no localizing neurologic deficits noted during the course of conversation Extrem: Other: No clubbing, cyanosis or edema Psych: Other: Appropriate mood, pleasant and cooperative Objective Data Vital Signs Vital Signs: Vital Signs - 24 hr 10/16/24 20:00 10/16/24 20:57 10/16/24 23:04 Temperature 96.4 F L Pulse Rate 78 66 Respiratory Rate 20 19 Blood Pressure 154/61 H Pulse Oximetry 98 94 Oxygen Delivery CPAP CPAP Fraction of Inspired Oxygen 10/17/24 02:23 10/17/24 05:59 10/17/24 08:00 Temperature 95.8 F L Pulse Rate 63 61 74 Respiratory Rate 20 20 18 Blood Pressure 137/69 Pulse Oximetry 94 97 97 Oxygen Delivery CPAP CPAP Fraction of Inspired Oxygen 21 10/17/24 14:00 Temperature 97.2 F L Pulse Rate 74 Respiratory Rate 18 Blood Pressure 161/87 H Pulse Oximetry 97 Oxygen Delivery Fraction of Inspired Oxygen Intake/Output Intake/Output: Intake & Output 10/14/24 10/15/24 10/16/24 10/17/24 23:59 23:59 23:59 23:59 Intake Total 2246 1290 1530 480 Output Total 0 0 Balance 2246 1290 1530 480 Meds/Results Medications: Active Medications Generic Name Dose Route Start Last Admin Trade Name Freq PRN Reason Stop Dose Admin Hydrocodone Bitart/Acetaminophen 1 tab 10/12/24 20:55 10/17/24 10:15 Hydrocodone/Acetaminophen (*Crx) 10-325 Mg Tablet PO 1 tab Q6H PRN Administration pain (scale score 7-10) Albuterol 1 puff 10/12/24 23:26 Albuterol Sulfate (*Sp) Aerosol 1 Puff INHALATION QIDRT PRN shortness of breath or wheezing Lidocaine HCl 30 ml/ Al Hydrox 0 ml 10/15/24 05:00 10/17/24 13:07 /Mg Hydrox/Simethicone 30 ml/ PO 5 ml Diphenhydramine HCl 75 mg Q4HWA [facility] Administration Dextrose 12.5 gm 10/12/24 20:54 Dextrose 50% 25 Gm/50 Ml Syringe IV PUSH PRN PRN Hypoglycemia Protocol Diclofenac Sodium 1 applic 10/14/24 21:45 10/17/24 13:07 Diclofenac Sodium 1% 100 Gm Gel (*Bkc) TOPICAL 1 applic QID [facility] Administration Enoxaparin Sodium 30 mg 10/13/24 21:00 10/17/24 10:10 Enoxaparin 30 Mg/0.3 Ml Syringe SUB-Q 30 mg Q12HR [facility] Administration Enoxaparin Sodium 95 mg 10/13/24 21:00 10/17/24 10:09 Enoxaparin 100 Mg/Ml Syringe SUB-Q 95 mg Q12HR [facility] Administration Gabapentin 300 mg 10/12/24 23:30 10/17/24 13:07 Gabapentin 300 Mg Capsule PO 300 mg TID [facility] Administration Glucagon 1 mg 10/12/24 20:54 Glucagon For Inj 1 Mg Vial IM PRN PRN Hypoglycemia Protocol Glucose 15 gm 10/12/24 20:54 Glucose Oral Gel 15 Gm Of Glucse In 37.5 Gm Tube PO PRN PRN Hypoglycemia Protocol Hydromorphone HCl 0.5 mg 10/12/24 20:48 10/17/24 02:43 Hydromorphone Hcl Inj (*Crx) 2 Mg/Ml Vial IV PUSH 0.5 mg Q3H PRN Administration Breakthrough Pain Dextrose 1,000 mls @ 100 mls/hr 10/12/24 20:54 Dextrose 5% 1,000 Ml IVPB PRN PRN Hypoglycemia Protocol Fluconazole/Dextrose 100 mg in 50 mls @ 50 mls/hr 10/13/24 13:20 10/17/24 10:12 Diflucan 100 Mg/Nacl 50 Ml IVPB 50 mls/hr DAILY [facility] Administration Vancomycin HCl 2,000 mg in 500 mls @ 250 mls/hr 10/16/24 17:00 10/17/24 05:56 Vancomycin 2,000 Mg/Ns 500 Ml IVPB 250 mls/hr Q12H [facility] Administration Insulin Aspart 1 - 3 units 10/12/24 21:00 10/16/24 22:38 Insulin Aspart (*Bkc) 100 Units/Ml SUB-Q 1 units HS [facility] Administration Protocol Insulin Aspart 0 units 10/13/24 12:00 10/17/24 13:08 Insulin Aspart (*Bkc) 100 Units/Ml SUB-Q 4 units TIDWM [facility] Administration Protocol Insulin Aspart 10 units 10/14/24 17:00 10/17/24 13:07 Insulin Aspart (*Bkc) 100 Units/Ml SUB-Q 10 units TIDWM [facility] Administration Insulin Glargine 40 units 10/13/24 09:00 10/13/24 10:10 Insulin Glargine (*Bkc) 100 Units/Ml SUB-Q Not Given QAM [facility] Isosorbide Dinitrate 10 mg 10/17/24 17:00 Isosorbide Dinitrate 10 Mg Tablet PO TID [facility] Miconazole Nitrate 1 applic 10/13/24 09:00 10/17/24 10:09 Miconazole Nitrate 2% Cream 30 Gm Tube TOPICAL 1 applic Q12HR [facility] Administration Non-Formulary Medication 25 mg 10/12/24 23:30 10/16/24 23:57 Exemestane PO 11/11/24 23:29 25 mg HS [facility] Administration Ondansetron HCl 4 mg 10/15/24 09:22 10/16/24 09:41 Ondansetron Inj 4 Mg/2 Ml Vial IV PUSH 4 mg Q4H PRN Administration Nausea And Vomiting Oxybutynin Chloride 15 mg 10/13/24 09:00 10/17/24 10:07 Oxybutynin Chloride Xl 5 Mg Tab.Er.24 PO 15 mg DAILY [facility] Administration Pantoprazole Sodium 40 mg 10/13/24 09:00 10/16/24 09:43 Pantoprazole 40 Mg Tablet PO 40 mg Q12HR [facility] Administration Pantoprazole Sodium 40 mg 10/16/24 14:50 10/17/24 10:08 Pantoprazole Sodium Iv 40 Mg Vial IV PUSH 40 mg Q12HR [facility] Administration Prednisone 10 mg 10/13/24 09:00 10/17/24 10:07 Prednisone 10 Mg Tablet PO 10 mg DAILY [facility] Administration Promethazine HCl 12.5 mg 10/13/24 17:57 Promethazine Hcl 25 Mg/Ml Ampul IV PUSH Q6H PRN Nausea And Vomiting Rivaroxaban 20 mg 10/13/24 09:00 10/13/24 09:00 Rivaroxaban 20 Mg Tablet PO Not Given 0900 [facility] Ropinirole HCl 5 mg 10/12/24 23:30 10/16/24 22:41 Ropinirole Hcl 1 Mg Tablet PO 5 mg HS [facility] Administration Sucralfate 1 gm 10/17/24 16:30 Sucralfate 1 Gm Tablet PO ACHS [facility] Radiology Results: ITS Impressions Abdomen/Pelvis CT 10/15/24 07:10 Impression: Possible mild inflammatory process in the anterior subcutaneous soft tissues about the anterior midline surgical scar. No abscess. Stable subcentimeter nodules at the left lung base, as detailed above. Labs Labs: Laboratory Results - last 24 hr 10/16/24 10/16/24 10/16/24 15:01 16:55 19:42 WBC RBC Hgb Hct MCV MCH MCHC RDW Plt Count MPV Immature Gran % (Auto) Neut % (Auto) Lymph % (Auto) [place] % (Auto) Eos % (Auto) Baso % (Auto) Lymph # (Auto) [place] # (Auto) Eos # (Auto) Baso # (Auto) Abs Immat Gran (auto) Absolute Neuts (auto) Absolute Nucleated RBC Nucleated RBC % Sodium Potassium Chloride Carbon Dioxide Anion Gap BUN Creatinine Estim Creat Clear Calc Estimated GFR Glucose POC Capillary Glucose 299 H 274 H Calcium Magnesium Total Bilirubin AST ALT Alkaline Phosphatase Total Protein Albumin Vancomycin Trough 17.1 10/16/24 10/16/24 10/17/24 20:17 22:32 07:29 WBC 11.3 H RBC 4.17 L Hgb 12.0 Hct 39.7 MCV 95.2 MCH 28.8 MCHC 30.2 L RDW 13.7 Plt Count 228 MPV 8.9 Immature Gran % (Auto) 0.8 H Neut % (Auto) 60.1 Lymph % (Auto) 29.4 [place] % (Auto) 7.7 Eos % (Auto) 1.6 Baso % (Auto) 0.4 Lymph # (Auto) 3.32 H [place] # (Auto) 0.9 H Eos # (Auto) 0.2 Baso # (Auto) 0.0 Abs Immat Gran (auto) 0.09 H Absolute Neuts (auto) 6.8 H Absolute Nucleated RBC 0.000 Nucleated RBC % 0.0 Sodium 134 L Potassium 3.8 Chloride 103 Carbon Dioxide 26 Anion Gap 5 BUN 10 Creatinine 0.63 L Estim Creat Clear Calc 91 Estimated GFR > 60 Glucose 155 H POC Capillary Glucose 251 H 249 H Calcium 8.6 Magnesium 1.6 Total Bilirubin 0.4 AST 35 ALT 37 H Alkaline Phosphatase 60 Total Protein 6.9 Albumin 3.4 L Vancomycin Trough 10/17/24 10/17/24 07:38 11:07 WBC RBC Hgb Hct MCV MCH MCHC RDW Plt Count MPV Immature Gran % (Auto) Neut % (Auto) Lymph % (Auto) [place] % (Auto) Eos % (Auto) Baso % (Auto) Lymph # (Auto) [place] # (Auto) Eos # (Auto) Baso # (Auto) Abs Immat Gran (auto) Absolute Neuts (auto) Absolute Nucleated RBC Nucleated RBC % Sodium Potassium Chloride Carbon Dioxide Anion Gap BUN Creatinine Estim Creat Clear Calc Estimated GFR Glucose POC Capillary Glucose 169 H 229 H Calcium Magnesium Total Bilirubin AST ALT Alkaline Phosphatase Total Protein Albumin Vancomycin Trough Quality VTE Prophylaxis VTE prophylaxis: pharmacologic ordered (Continue home Eliquis)
[2024-10-17 16:26] LABS: Glucose Point of Care 245 mg/dl (65-105)
[2024-10-17] MEDS: SUCRALFATE 1 GM TABLET PO ×2 (17:01→21:05)
[2024-10-17] MEDS: ISOSORBIDE DINITRATE 10 MG TABLET PO (17:02)
[2024-10-17 20:51] LABS: Glucose Point of Care 216 mg/dl (65-105)
[2024-10-17] MEDS: rOPINIRole HCL 1 MG TABLET 5 MG PO (21:04)
[2024-10-17 21:43] LABS: Glucose Point of Care 210 mg/dl (65-105)
[2024-10-17] MEDS: ALBUTEROL SULFATE (*SP) AEROSOL 1 PUFF INHALATION (21:48)
[2024-10-18 00:30] VITALS: PULSE 72; RESP 16; O2SAT 95
[2024-10-18 04:00] VITALS: PULSE 70; RESP 19; O2SAT 95
[2024-10-18 04:40] VITALS: BP 156/76; PULSE 77; RESP 18; TEMP 36.6; O2SAT 95
[2024-10-18] MEDS: HYDROmorphone HCL INJ (*CRX) 2 MG/ML VIAL 0.5 MG IV PUSH (05:18)
[2024-10-18] MEDS: VANCOMYCIN 2,000 MG/NS 500 ML 2,000 MG/500 ML BAG 250 MG IVPB (05:22)
[2024-10-18] MEDS: SUCRALFATE 1 GM TABLET PO ×2 (06:12→11:53)
[2024-10-18] MEDS: ONDANSETRON INJ 4 MG/2 ML VIAL IV PUSH (06:14)
[2024-10-18 07:42] LABS: Glucose Point of Care 208 mg/dl (65-105)
[2024-10-18 08:19] LABS: Basophils Percent Auto 0.3 % (0.2-1.2); Eosinophils Absolute Auto 0.2 K/mm3 (0-0.3); Eosinophils Percent Auto 1.6 % (0-4.4); Hematocrit 40.3 % (37.0-47.0); Hemoglobin 12.4 g/dL (12.0-15.0); Immature Granulocyte Percent A 0.8 % (0-0.5); Lymphocytes Absolute Auto 3.13 K/mm3 (0.9-3.2); Lymphocytes Percent Auto 25.6 % (18.3-44.2); Mean Corpuscular HGB Conc 30.8 g/dl (32-36); Mean Corpuscular Hemoglobin 29.1 pg (26-34); Mean Corpuscular Volume 94.6 fl (80-100); Mean Platelet Volume 9.5 fl (7.4-10.4); Neutrophils Absolute Auto 7.8 K/mm3 (1.3-6.7); Neutrophils Percent Auto 63.7 % (45.5-73.1); Platelet Count Result 240 k/mm3 (150-375); Red Blood Count 4.26 M/mm3 (4.2-5.4); Red Cell Distribution Width 13.9 % (11.5-14.5); White Blood Count 12.2 K/mm3 (4.5-10.0)
[2024-10-18] MEDS: PANTOPRAZOLE SODIUM IV 40 MG VIAL IV PUSH (08:40)
[2024-10-18] MEDS: oxyBUTYnin CHLORIDE XL 5 MG TAB.ER.24 15 MG PO (08:40)
[2024-10-18] MEDS: GABAPENTIN 300 MG CAPSULE PO ×2 (08:41→11:54)
[2024-10-18] MEDS: FLUCONAZOLE 100 MG/NACL 50 ML 100 MG/50 ML BTL 50 MG IVPB (08:41)
[2024-10-18] MEDS: predniSONE 10 MG TABLET PO (08:41)
[2024-10-18] MEDS: ISOSORBIDE DINITRATE 10 MG TABLET PO ×2 (08:41→11:54)
[2024-10-18] MEDS: ENOXAPARIN 100 MG/ML SYRINGE 95 MG SUB-Q (08:43)
[2024-10-18] MEDS: ENOXAPARIN 30 MG/0.3 ML SYRINGE SUB-Q (08:43)
[2024-10-18] MEDS: INSULIN ASPART (*BKC) 100 UNITS/ML 10 UNITS SUB-Q ×2 (08:43→11:55)
[2024-10-18] MEDS: INSULIN ASPART (*BKC) 100 UNITS/ML SUB-Q ×2 (08:44→11:54)
[2024-10-18] MEDS: DICLOFENAC SODIUM 1% 100 GM GEL (*BKC) 1 APPLIC TOPICAL ×2 (08:47→11:57)
[2024-10-18] MEDS: MICONAZOLE NITRATE 2% CREAM 30 GM TUBE 1 APPLIC TOPICAL (08:51)
[2024-10-18] MEDS: LIDOCAINE 2% VISC SOLN 30 ML, ALUMINUM/MAGNESIUM/SIMETH SUSP 30 ML, diphenhydrAMINE HCl... PO ×2 (08:56→11:55)
[2024-10-18 09:01] LABS: Alanine Aminotransferase 43 U/L (6-35); Albumin Level 3.7 g/dL (3.5-5.1); Alkaline Phosphatase 65 U/L (38-126); Anion Gap 7 mmol/L (4-12); Aspartate Amino Transferase 41 U/L (14-36); Bilirubin,Total 0.5 mg/dL (0.2-1.3); Blood Urea Nitrogen 12 mg/dL (7-17); Calcium 9.4 mg/dL (8.4-10.2); Carbon Dioxide 27 mmol/L (22-30); Chloride 103 mmol/L (98-107); Estimated CRCL calculation 80 ml/min; Estimated Glomerular Filt Rate > 60; Glucose 206 mg/dL (65-110); Magnesium 1.7 mg/dL (1.6-2.3); Potassium 3.7 mmol/L (3.4-5.0); Sodium 137 mmol/L (137-145); Total Protein 7.3 g/dL (6.3-8.2)
--- NOTE | 2024-10-18 09:44 | P.PNGS_ITS ---
Progress Note: A&P Assessment and Plan (1) Abdominal wall cellulitis: Code(s): L03.311 - Cellulitis of abdominal wall Status: Acute Assessment and Plan: * Repeat CT scan of the abdomen and pelvis on 10/15 showed no abscess and overall appears to be improving. Abdominal pain improved with Protonix. She last had Dilaudid around 5 am this morning. If she is able to tolerate pain with oral medication only then she is stable for discharge from a surgical standpoint. Therapeutic-dosed Lovenox given this morning. Xarelto resumed by hospitalist. No immediate surgical intervention necessary at this time. (2) Abdominal pain: Qualifiers: Abdominal location: periumbilical Qualified Code(s): R10.33 - Periumbilical pain Code(s): R10.9 - Unspecified abdominal pain Status: Acute Assessment and Plan: * Abdominal pain resolved with Protonix and pain medication. See plan above. (3) Uncontrolled diabetes mellitus: Qualifiers: Diabetes mellitus type: type 2 Glycemic state: with hyperglycemia Qualified Code(s): E11.65 - Type 2 diabetes mellitus with hyperglycemia Status: Acute (4) Morbid obesity with BMI of 50.0-59.9, adult: Code(s): E66.01 - Morbid (severe) obesity due to excess calories; Z68.43 - Body mass index [BMI] 50.0-59.9, adult Status: Acute Plan I have discussed the patient's case and plan of care with Dr. Shi. Subjective Subjective Date/Time Seen: 10/18/24 09:44 Patient reports: no new complaints, pain is less and bowel movement Interval history: Patient is feeling much better today with significantly less pain. She states that pantoprazole has helped with pain after eating. Dilaudid last given around 5:00 a.m. Patient feels hopeful for discharge today. Ambulated to bathroom and had bowel movement this morning. Exam Const: General: comfortable and no acute distress GI: Inspection: non-distended, Pannus present, obesity and other (Very mild erythema in the infraumbilical area, no induration) GI Palp: Yes Soft to palpation Auscultation: normal bowel sounds Other: No redness in the periumbilical region or pannus Skin fold beneath the pannus is much improved with minimal to no erythema and excoriation Skin: General skin exam: rashes Rashes: rashes noted Other: Fungal rash in the lower pannus crease has significantly improved. No redness or rash present. Objective Data Vital Signs Vital Signs: Vital Signs - 24 hr 10/17/24 14:00 10/17/24 20:00 10/17/24 20:46 Temperature 97.2 F L 97.7 F Pulse Rate 74 61 Respiratory Rate 18 18 Blood Pressure 161/87 H 125/58 L Pulse Oximetry 97 97 Oxygen Delivery CPAP 10/17/24 21:43 10/17/24 21:48 10/18/24 00:30 Temperature Pulse Rate 72 Respiratory Rate 16 Blood Pressure 145/100 H Pulse Oximetry 100 97 95 Oxygen Delivery Autopap CPAP 10/18/24 04:00 10/18/24 04:40 Temperature 97.8 F Pulse Rate 70 77 Respiratory Rate 19 18 Blood Pressure 156/76 H Pulse Oximetry 95 95 Oxygen Delivery Autopap Intake/Output Intake/Output: Intake & Output 10/15/24 10/16/24 10/17/24 10/18/24 23:59 23:59 23:59 23:59 Intake Total 1290 1530 1902 550 Output Total 0 0 Balance 1290 1530 1902 550 Meds/Results Medications: Active Medications Generic Name Dose Route Start Last Admin Trade Name Freq PRN Reason Stop Dose Admin Hydrocodone Bitart/Acetaminophen 1 tab 10/12/24 20:55 10/17/24 21:04 Hydrocodone/Acetaminophen (*Crx) 10-325 Mg Tablet PO 1 tab Q6H PRN Administration pain (scale score 7-10) Albuterol 1 puff 10/12/24 23:26 10/17/24 21:48 Albuterol Sulfate (*Sp) Aerosol 1 Puff INHALATION 1 puff QIDRT PRN Administration shortness of breath or wheezing Lidocaine HCl 30 ml/ Al Hydrox 0 ml 10/15/24 05:00 10/18/24 08:56 /Mg Hydrox/Simethicone 30 ml/ PO 5 ml Diphenhydramine HCl 75 mg Q4HWA [facility] Administration Dextrose 12.5 gm 10/12/24 20:54 Dextrose 50% 25 Gm/50 Ml Syringe IV PUSH PRN PRN Hypoglycemia Protocol Diclofenac Sodium 1 applic 10/14/24 21:45 10/18/24 08:47 Diclofenac Sodium 1% 100 Gm Gel (*Bkc) TOPICAL 1 applic QID [facility] Administration Enoxaparin Sodium 30 mg 10/13/24 21:00 10/18/24 08:43 Enoxaparin 30 Mg/0.3 Ml Syringe SUB-Q 30 mg Q12HR [facility] Administration Enoxaparin Sodium 95 mg 10/13/24 21:00 10/18/24 08:43 Enoxaparin 100 Mg/Ml Syringe SUB-Q 95 mg Q12HR [facility] Administration Gabapentin 300 mg 10/12/24 23:30 10/18/24 08:41 Gabapentin 300 Mg Capsule PO 300 mg TID [facility] Administration Glucagon 1 mg 10/12/24 20:54 Glucagon For Inj 1 Mg Vial IM PRN PRN Hypoglycemia Protocol Glucose 15 gm 10/12/24 20:54 Glucose Oral Gel 15 Gm Of Glucse In 37.5 Gm Tube PO PRN PRN Hypoglycemia Protocol Hydromorphone HCl 0.5 mg 10/12/24 20:48 10/18/24 05:18 Hydromorphone Hcl Inj (*Crx) 2 Mg/Ml Vial IV PUSH 0.5 mg Q3H PRN Administration Breakthrough Pain Dextrose 1,000 mls @ 100 mls/hr 10/12/24 20:54 Dextrose 5% 1,000 Ml IVPB PRN PRN Hypoglycemia Protocol Fluconazole/Dextrose 100 mg in 50 mls @ 50 mls/hr 10/13/24 13:20 10/18/24 08:41 Diflucan 100 Mg/Nacl 50 Ml IVPB 50 mls/hr DAILY [facility] Administration Vancomycin HCl 2,000 mg in 500 mls @ 250 mls/hr 10/16/24 17:00 10/18/24 05:22 Vancomycin 2,000 Mg/Ns 500 Ml IVPB 250 mls/hr Q12H [facility] Administration Insulin Aspart 1 - 3 units 10/12/24 21:00 10/17/24 21:19 Insulin Aspart (*Bkc) 100 Units/Ml SUB-Q 1 units HS [facility] Administration Protocol Insulin Aspart 0 units 10/13/24 12:00 10/18/24 08:44 Insulin Aspart (*Bkc) 100 Units/Ml SUB-Q 4 units TIDWM [facility] Administration Protocol Insulin Aspart 10 units 10/14/24 17:00 10/18/24 08:43 Insulin Aspart (*Bkc) 100 Units/Ml SUB-Q 10 units TIDWM [facility] Administration Insulin Glargine 40 units 10/13/24 09:00 10/13/24 10:10 Insulin Glargine (*Bkc) 100 Units/Ml SUB-Q Not Given QAM [facility] Isosorbide Dinitrate 10 mg 10/17/24 17:00 10/18/24 08:41 Isosorbide Dinitrate 10 Mg Tablet PO 10 mg TID [facility] Administration Miconazole Nitrate 1 applic 10/13/24 09:00 10/18/24 08:51 Miconazole Nitrate 2% Cream 30 Gm Tube TOPICAL 1 applic Q12HR [facility] Administration Non-Formulary Medication 25 mg 10/12/24 23:30 10/17/24 21:06 Exemestane PO 11/11/24 23:29 25 mg HS [facility] Administration Ondansetron HCl 4 mg 10/15/24 09:22 10/18/24 06:14 Ondansetron Inj 4 Mg/2 Ml Vial IV PUSH 4 mg Q4H PRN Administration Nausea And Vomiting Oxybutynin Chloride 15 mg 10/13/24 09:00 10/18/24 08:40 Oxybutynin Chloride Xl 5 Mg Tab.Er.24 PO 15 mg DAILY [facility] Administration Pantoprazole Sodium 40 mg 10/13/24 09:00 10/16/24 09:43 Pantoprazole 40 Mg Tablet PO 40 mg Q12HR [facility] Administration Pantoprazole Sodium 40 mg 10/16/24 14:50 10/18/24 08:40 Pantoprazole Sodium Iv 40 Mg Vial IV PUSH 40 mg Q12HR [facility] Administration Prednisone 10 mg 10/13/24 09:00 10/18/24 08:41 Prednisone 10 Mg Tablet PO 10 mg DAILY [facility] Administration Promethazine HCl 12.5 mg 10/13/24 17:57 Promethazine Hcl 25 Mg/Ml Ampul IV PUSH Q6H PRN Nausea And Vomiting Rivaroxaban 20 mg 10/13/24 09:00 10/13/24 09:00 Rivaroxaban 20 Mg Tablet PO Not Given 0900 [facility] Ropinirole HCl 5 mg 10/12/24 23:30 10/17/24 21:04 Ropinirole Hcl 1 Mg Tablet PO 5 mg HS [facility] Administration Sucralfate 1 gm 10/17/24 16:30 10/18/24 06:12 Sucralfate 1 Gm Tablet PO 1 gm ACHS [facility] Administration Radiology Results: ITS Impressions Abdomen/Pelvis CT 10/15/24 07:10 Impression: Possible mild inflammatory process in the anterior subcutaneous soft tissues about the anterior midline surgical scar. No abscess. Stable subcentimeter nodules at the left lung base, as detailed above. Labs Labs: Laboratory Results - last 24 hr 10/17/24 10/17/24 10/17/24 11:07 16:16 20:48 WBC RBC Hgb Hct MCV MCH MCHC RDW Plt Count MPV Immature Gran % (Auto) Neut % (Auto) Lymph % (Auto) [place] % (Auto) Eos % (Auto) Baso % (Auto) Lymph # (Auto) [place] # (Auto) Eos # (Auto) Baso # (Auto) Abs Immat Gran (auto) Absolute Neuts (auto) Absolute Nucleated RBC Nucleated RBC % Sodium Potassium Chloride Carbon Dioxide Anion Gap BUN Creatinine Estim Creat Clear Calc Estimated GFR Glucose POC Capillary Glucose 229 H 245 H 216 H Calcium Magnesium Total Bilirubin AST ALT Alkaline Phosphatase Total Protein Albumin 10/17/24 10/18/24 10/18/24 21:35 07:14 07:22 WBC 12.2 H RBC 4.26 Hgb 12.4 Hct 40.3 MCV 94.6 MCH 29.1 MCHC 30.8 L RDW 13.9 Plt Count 240 MPV 9.5 Immature Gran % (Auto) 0.8 H Neut % (Auto) 63.7 Lymph % (Auto) 25.6 [place] % (Auto) 8.0 Eos % (Auto) 1.6 Baso % (Auto) 0.3 Lymph # (Auto) 3.13 [place] # (Auto) 1.0 H Eos # (Auto) 0.2 Baso # (Auto) 0.0 Abs Immat Gran (auto) 0.10 H Absolute Neuts (auto) 7.8 H Absolute Nucleated RBC 0.000 Nucleated RBC % 0.0 Sodium 137 Potassium 3.7 Chloride 103 Carbon Dioxide 27 Anion Gap 7 BUN 12 Creatinine 0.73 Estim Creat Clear Calc 80 Estimated GFR > 60 Glucose 206 H POC Capillary Glucose 210 H 208 H Calcium 9.4 Magnesium 1.7 Total Bilirubin 0.5 AST 41 H ALT 43 H Alkaline Phosphatase 65 Total Protein 7.3 Albumin 3.7
[2024-10-18 11:32] LABS: Glucose Point of Care 212 mg/dl (65-105)
--- NOTE | 2024-10-18 11:38 | PC.NURSE ---
Spoke with Dr. Vidal r/t GI consult. [facility] to DC patient and f/u OP with GI
[2024-10-18] MEDS: HYDROcodone/acetaminophen (*CRX) 10-325 MG TABLET 1 TAB PO (12:54)
--- NOTE | 2024-10-18 13:20 | P.DS_ITS ---
DS: Admitting Diagnosis Discharge Date 10/18/24 Admitting Diagnosis Abdominal pain recent cellulitis DS: Discharge Diagnosis Discharge Diagnosis (1) Abdominal pain: Qualifiers: Abdominal location: periumbilical Qualified Code(s): R10.33 - Periumbilical pain Code(s): R10.9 - Unspecified abdominal pain Status: Acute DS: Summary Hospital Course Hospital Course: 69-year-old female well known to the hospitalist service and ER due to past medical history of over utilization Services, type 2 diabetes mellitus, DVT/PE on chronic anticoagulation, irritable bowel syndrome, restless leg syndrome, obstructive sleep apnea on CPAP, CHF, breast cancer status post mastectomy, polymyositis, depression with anxiety among other medical complaints who presented to the ER with persistent abdominal pain. The patient was admitted to the hospital on 10/08/2024 and discharged home on 10/11/2024 after being hospitalized for possible abdominal wall cellulitis. She was discharged on linezolid. She states that she did take her and linezolid after she got home the other night and this morning before coming back into the ER this evening. She reports that her abdomen is painful. She felt that it was more red than at baseline and she was concerned that the infection could be getting worse. She continued to have pain around her belly button and into her pannus. She stated that she noted some persistent erythema however erythema not appreciated at the time of my exam or at the time of exam of the ER provider. She did have some small punctate areas of erythema consistent with Kathrin within her umbilicus and a slightly more extensive area of candidiasis in her pannus fold. She denies any fevers or chills. She does have an area of slightly purple discoloration just above the left side of her umbilicus at the 2 to 4 o'clock position. This was present during her prior hospitalization in appears consistent with bruising. She reports that she has been more nauseated but has not had any vomiting. She has chronic soft stools with history of collagenous colitis but denies diarrhea. She reports increased fatigue. She states that she has not been injecting insulin in her abdomen since her last hospital stay. She has been injecting her insulin and her arms or thighs. She reports the pain is severe and wants pain meds besides her home [place]. She takes [place] for chronic back pain and for her pain from her polymyositis. She reports that she has an appointment for outpatient echo and a couple of weeks due to new murmur. She denies any palpitations. Or increased shortness of breath. She has not had any cough or congestion. She denies any abdominal trauma. She reports chest pain but when further questions she actually indicate pain in the epigastric area that radiates through to the back. Her lipase in the ER was negative. She was recently diagnosed with GERD and is on Protonix b.i.d. CT AP showed possible mild inflammatory process in the anterior subc soft tissue about the anterior midline surgical scar. No abscess. Gen was again consulted, patient was continue on IV Vanc, Surgery added Fluconazole. However patient later reported that pain was worse with food. She was started on Protonix for which she noted improved pain, sucralfate was added yesterday and this morning she noted her pain has improved markedly, almost resolved. Patient was referred to GI for possibel outpatient eval for PUD. F/u with PCP in 3-5 days F/u with GI and Gen surgery as intructed Time Spent with Patient Time attestation: Total time spent providing and/or coordinating discharge services: DS: Data Data Completed and Pending Labs on day of discharge: Labs from last 24 hours 10/18/24 10/18/24 10/18/24 11:24 07:22 07:14 WBC 12.2 H RBC 4.26 Hgb 12.4 Hct 40.3 MCV 94.6 MCH 29.1 MCHC 30.8 L RDW 13.9 Plt Count 240 MPV 9.5 Immature Gran % (Auto) 0.8 H Neut % (Auto) 63.7 Lymph % (Auto) 25.6 [place] % (Auto) 8.0 Eos % (Auto) 1.6 Baso % (Auto) 0.3 Lymph # (Auto) 3.13 [place] # (Auto) 1.0 H Eos # (Auto) 0.2 Baso # (Auto) 0.0 Abs Immat Gran (auto) 0.10 H Absolute Neuts (auto) 7.8 H Absolute Nucleated RBC 0.000 Nucleated RBC % 0.0 Sodium 137 Potassium 3.7 Chloride 103 Carbon Dioxide 27 Anion Gap 7 BUN 12 Creatinine 0.73 Estim Creat Clear Calc 80 Estimated GFR > 60 Glucose 206 H POC Capillary Glucose 212 H 208 H Calcium 9.4 Magnesium 1.7 Total Bilirubin 0.5 AST 41 H ALT 43 H Alkaline Phosphatase 65 Total Protein 7.3 Albumin 3.7 10/17/24 10/17/24 10/17/24 21:35 20:48 16:16 WBC RBC Hgb Hct MCV MCH MCHC RDW Plt Count MPV Immature Gran % (Auto) Neut % (Auto) Lymph % (Auto) [place] % (Auto) Eos % (Auto) Baso % (Auto) Lymph # (Auto) [place] # (Auto) Eos # (Auto) Baso # (Auto) Abs Immat Gran (auto) Absolute Neuts (auto) Absolute Nucleated RBC Nucleated RBC % Sodium Potassium Chloride Carbon Dioxide Anion Gap BUN Creatinine Estim Creat Clear Calc Estimated GFR Glucose POC Capillary Glucose 210 H 216 H 245 H Calcium Magnesium Total Bilirubin AST ALT Alkaline Phosphatase Total Protein Albumin Discharge Plan Discharge Attending physician on discharge: Donovan Barnes Consulting providers: Bubba Shi Discharging Clinician: Donovan Barnes Anticipated Discharge Date/Time: 10/18/24 13:15 Patient Disposition: Home Activity: as tolerated Diet: as tolerated and diabetic Patient Instructions: Antibiotic Form, Pain Management After Surgery (GEN) Patient Language: Setswana Stand Alone Forms: General Discharge Information Follow-up/Referrals: Shahla,Justen Spicer MD [Primary Care Provider] - (F/u with PCP in 3-5 days ) Rashaad Vidal MD [Physician] - (F/u with GI within 2 weeks ) Bubba Shi MD [Physician] - (F/u with Gen surgery as instructed ) Discharge Medications: New pantoprazole [Protonix] 40 mg tablet,delayed release (DR/EC) 40 mg PO BID 30 Days Qty: 60 0RF sucralfate 1 gram Tablet 1 g PO ACHS 21 Days Qty: 84 0RF Continued gabapentin 300 mg capsule 300 mg PO TID mupirocin [Centany] 2 % ointment 1 applic topical BID 30 Days Qty: 15 0RF exemestane 25 mg tablet 25 mg PO HS ropinirole 5 mg tablet 5 mg PO HS insulin glargine [Lantus Solostar U-100 Insulin] 100 unit/mL (3 mL) insulin pen 40 unit SUBCUT QAM insulin lispro [Humalog KwikPen Insulin] 100 unit/mL insulin pen 32 unit SUBCUT TID Patient Comments: PATIENT EXPERIENCES LOW BLOOD SUGAR IN THE HOSPITAL albuterol sulfate 90 mcg/actuation HFA aerosol inhaler 1 inh inhalation QID PRN (Reason: shortness of breath or wheezing) Qty: 6.7 0RF oxybutynin chloride 15 mg tablet extended release 24hr 15 mg PO DAILY ondansetron 4 mg tablet,disintegrating 4 mg PO Q8H PRN (Reason: nausea and vomiting) Qty: 10 0RF lidocaine 5 % ointment 1 applic topical TID PRN (Reason: skin irritation) Qty: 50 0RF prednisone 10 mg tablet 10 mg PO DAILY Xarelto 20 mg tablet 20 mg PO 0900 linezolid 600 mg tablet 600 mg PO Q12H 5 Days Qty: 10 0RF hydrocodone-acetaminophen 10-325 mg tablet 1 tablet PO Q6H PRN (Reason: pain (scale score 7-10)) 5 Days Qty: 10 0RF Discontinued omeprazole 40 mg capsule,delayed release(DR/EC) 40 mg PO DAILY 30 Days Qty: 30 2RF Date of admission: 10/14/24 14:26 Primary Care Provider: Shahla,Justen Spicer Admitting Provider: Ilana Duncan Attending physician on admission: Trisha Martinez Condition: Stable
== END 2024-10-18 14:55 | disposition home or self-care (01) | DRG 392 ==
LOC: ANHED 20:12 → ANH3MEDSUR 20:41
PROVIDERS: Internal Medicine; Surgery; Admitting Provider Internal Medicine; Emergency Provider Emergency Medicine; PCP Internal Medicine; Visit Provider Internal Medicine
DX: R10.33 Periumbilical pain (principal); Z68.43 Body mass index [BMI] 50.0-59.9, adult; E11.65 Type 2 diabetes mellitus with hyperglycemia; E66.01 Morbid (severe) obesity due to excess calories; E11.42 Type 2 diabetes mellitus with diabetic polyneuropathy; B37.2 Candidiasis of skin and nail; K12.1 Other forms of stomatitis; K58.9 Irritable bowel syndrome, unspecified; I50.9 Heart failure, unspecified; G47.33 Obstructive sleep apnea (adult) (pediatric); G25.81 Restless legs syndrome; M54.9 Dorsalgia, unspecified; G89.29 Other chronic pain; Z96.651 Presence of right artificial knee joint; Z87.891 Personal history of nicotine dependence; Z90.49 Acquired absence of other specified parts of digestive tract; Z85.3 Personal history of malignant neoplasm of breast; Z86.16 Personal history of COVID-19; Z86.711 Personal history of pulmonary embolism; Z86.718 Personal history of other venous thrombosis and embolism; Z79.01 Long term (current) use of anticoagulants
CPT/HCPCS: 36415; 74177; 80048; 80053; 80202; 81001; 82948; 83690; 83735; 84145; 85025; 85027; 86140; 87086; 94640; 96361; 96365; 96366; 96372; 99285; A9270; G0378; J0500; J1171; J1450; J1650; J1815; J2405; J2470; J3370; J7030; J7512; Q9967

== ENCOUNTER 2024-11-07 15:35 | Emergency (ER) | payer MEDICARE, MEDICAID, SELFPAY ==
--- OUTSIDE RECORDS SUMMARY | 2024-11-07 15:39 | XMS_ITS | Referral Summary ---
Author Organization [facility] Address [address] [place] [address] Care Team Providers Care Tire Adjuster Name Role Phone Liu Jerez MD Unavailable Albert Corbin MD Unavailable Justen Gale MD Primary Care Provider Khris Arthur MD Unavailable [phone] Ko Melendez MD Unavailable John Paul Moyer [...] 05/22/2024 Assessment & Plan (05/26/2024 10:08 AM SPRAY GUNNER): Presenting with urinary symptoms of right flank [...] 05/22/2024 Assessment & Plan (05/25/2024 7:52 AM SPRAY GUNNER): Hx of breast cancer c/b DVT/bilateral Pes [...] 05/22/2024 Assessment & Plan (05/22/2024 1:14 PM SPRAY GUNNER): -long-standing chronic back pain -CT L spine [...] current use of insulin ([facility]) 10/23/2017 Assessment & Plan (10/23/2017 [...] 10/13/2017 Assessment & Plan (05/22/2024 12:29 PM SPRAY GUNNER): -Hx stage II, ER positive, HER2 negative [...] 08/01/2017 Assessment & Plan (05/22/2024 12:33 PM SPRAY GUNNER): -Hx LUL -Hospital provided CPAP ordered History of DVT (deep vein thrombosis) 08/01/2017 History of pulmonary embolism 08/01/2017 Generalized weakness 07/27/2017 Dyspnea 07/27/2017 Unintentional weight loss 07/27/2017 Acute cystitis without hematuria 07/27/2017 Nausea and vomiting 07/26/2017 Overview (07/28/2017): Added automatically from request for surgery [id number] Pulmonary embolism 08/09/2016 Assessment & Plan (10/23/2017 2:05 AM CDT): On Rivaroxaban Lymphedema of left upper extremity 08/09/2016 Assessment & Plan (05/25/2024 7:53 AM SPRAY GUNNER): S/p L axillary lymph node dissection 2014, [...] syndrome Assessment & Plan (05/22/2024 11:18 AM SPRAY GUNNER): -continue home Requip 5mg nightly Pain of lower extremity 03/12/2013 Overview (07/29/2016): Leg pain Essential hypertension Assessment & Plan (05/23/2024 10:42 AM SPRAY GUNNER): -Chart history of HTN but not on meds -BP elevated on admission, likely some pain contributing -Monitor closely once pain under adequate control, discussed following up with PCP for this Chronic anticoagulation Restless leg syndrome 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 Type 2 diabetes mellitus without complication Assessment & Plan (05/24/2024 1:39 PM SPRAY GUNNER): -Last Ha1c 8.4 in 2023, repeat 8.7 [...] In the past 12 months has e [employer], gas, oil, or water company threatened to [...] any clubs o r organizations such as confucianism groups, unions, fraternal or athletic groups, or [...] in a prison (including now)? No 08/15/2023 Housing Stability Vital [...] living in a prison (including now)? No 05/24/2024 Personal Safety Answer Date Recorded Have you ever been in or are you currently in a harmful physical or emotional relationship or is someone making you feel afraid or unsafe? Denies 07/01/2024 Comments No Sex and Gender Information Value Date Recorded Sex Assigned at Not on file Legal Sex Female 12:24 AM SPRAY GUNNER Gender Identity Not on file Sexual Orientation [...] CDT HEMOGLOBIN A1C STAT 05/21/2024 4:20 PM SPRAY GUNNER LIPID PANEL STAT 05/21/2024 4:20 PM SPRAY GUNNER DEXA AXIAL SKELETON BONE DENSITY 1 OR [...] reviewed 2021. Testing performed by: [facility], [address] [place] [address]., [address] Blood 07/01/2024 2:02 PM CDT 07/01/2024 2:12 PM CDT us Ilana Stevens MD LAB BLOOD ORDERABLES F inal Result [facility] [address] [facility] Department [place] [address] * (ABNORMAL) Hemoglobin A1c (05/21/2024 4:20 PM SPRAY GUNNER) Hgb A1C 8.7(H) 4.0 - 5.6 % Estimated Average Glucose 203 mg/dL [facility] Comment: The ADA recommends reporting an estimated Average Glucose (eAG) with all Hemoglobin A1c results using the equation derived from a study of 507 normal and diabetic adults. Minority populations were underrepresented and children were not included. (Diabetes Care 2020; 43(S1): S66-S76). The eAG is not equivalent to a fasting glucose. Blood 05/21/2024 4:20 PM SPRAY GUNNER 05/21/2024 4:55 PM SPRAY GUNNER us Leo Henry MD LAB BLOOD ORDERABLES Final Result [facility] Department [place] [address] * (ABNORMAL) Lipid panel (05/21/2024 4:20 PM SPRAY GUNNER) Cholesterol 205(H) 30 - 199 mg/dL Comment: [...] [facility] Blood 05/21/2024 4:20 PM SPRAY GUNNER 05/21/2024 4:50 PM SPRAY GUNNER Narrative [facility] - 05/22/2024 4:17 PM SPRAY GUNNER Reflex us Leo Henry MD LAB BLOOD ORDERABLES Final Result [facility] Department [place] [address] * Dexa Axial Skeleton Bone Density 1 or 2 Site (08/02/2022 10:53 AM CDT) Anatomical Region Laterality Modality Body N/A Radiographic Lizeth ging Narrative 08/02/2022 3:34 PM CDT Patient Name: Karly Marques Date of : 1955 Date of scan: 08/02/2022 Bone mineral density was performed on a HoloMeeDoc Discovery Densitometer. Based on machine cross-calibration and [...] by the International Society of Clinical Densitometry. [id number] Khris Arthur MD [facility] – [...] this written report and agrees with it. [facility]# Date Time Exam [id number] Aug 19, 2016 14:27:00 [facility] 76774 Diag Mamm, inc CAD, unilat L Technologist(s): Carla Harris; ; [id number] Aug 19, 2016 15:39:00 [facility] 61075 Breast US unilateral, ltd L [facility]# Date Time Exam [id number] Aug 19, 2016 14:27:00 [facility] 85188 Diag Mamm, inc CAD, unilat L Technologist(s): Carla Harris; ; [id number] Aug 19, 2016 15:39:00 [facility] 13834 Breast US unilateral, ltd L EXAMINATION: LEFT [...] SARABIA M.D. on Aug 19 2016 4:20P [id number] Procedure Note Miscellaneous, Not In File / Provider, Historical, MD - 09/17/2016 ANTHONY SARABIA M.D. JUDY RINCON M.D. FINAL REPORT The radiology attending physician has personally reviewed this study, and has reviewed and/or edited this written report and agrees with it. [facility]# Date Time Exam [id number] Aug 19, 2016 14:27:00 [facility] 52535 Diag Mamm, inc CAD, unilat L Technologist(s): Carla Harris; ; [id number] Aug 19, 2016 15:39:00 [facility] 94769 Breast US unilateral, ltd L ACC# Date Time Exam [id number] Aug 19, 2016 14:27:00 [facility] 19821 Diag Mamm, inc CAD, unilat L Technologist(s): Carla Harris; ; [id number] Aug 19, 2016 15:39:00 C 46814 Breast US unilateral, ltd L EXAMINATION: LEFT [...] SARABIA M.D. on Aug 19 2016 4:20P [id number] us Not In File Miscellaneous IMG MAMMO PROCEDURES F inal Result from Last 3 Months or Most Recently Relevant to Health Maintenance Insurance [facility] MEDICARE ADVANTAGE [facility] MEDICARE ADVANTAGE [employer] MEDICARE ADVANTAGE Advance Directives For more information, please contact: [phone] Documents on File Type Date Recorded Patient Junior Assistant Manager Expl anation ADVANCE DIRECTIVE 12/23/2021 2:49 PM Power of Stone Carriage Operator-Medical ADVANCE DIRECTIVE 12/23/2021 2:49 PM Living [...] First Alternate Health Care Agent Care Teams Tire Adjuster Relationship Specialty Start Date End Date Justen Gale MD [address] [facility] [address] [place] [address] PCP - General 10/09/17 Liu Jerez MD Consulting Physician Gastroenterology 07/28/17 [place] [address] [facility] [address] [place] [address] Consulting Physician Pulmonary Disease 08/03/17 Khris Arthur MD [address] [facility] [address] [place] [address] Medical Oncologist/Medical Management Specialist Medical Oncology 10/23/17 [place] [address] [facility] [address] [place] [address] Surgeon Orthopedic Surgery 10/23/17 [place] [address] [facility] [address] [place] [address] Consulting Physician Pain Management 10/23/17 [place] [address] [facility] [address] [place] [address] Referring Physician General Surgery 01/26/18 [place] [address] [facility] [address] [place] [address] Consulting Physician Neurology 01/26/18
--- OUTSIDE RECORDS SUMMARY | 2024-11-07 15:39 | XMS_ITS ---
Author Organization [facility] Address [address] [place] [address] Care Team Providers Care Retail Greeter Name Role Phone Liu Jerez MD Unavailable Albert Corbin MD Unavailable [phone] Justen Gale MD Primary Care Provider [phone] Khris Arthur MD Unavailable [phone] Ko Melendez MD Unavailable [phone] John Paul Moyer MD Unavailable Annel Rod MD Unavailable Anali MARSHALL MD, Carlos M. Unavailable Active Problems Problem Noted Date Diagnosed Date Urinary tract infection 05/22/2024 Assessment & Plan (05/26/2024 10:08 AM LIQUOR BRIDGE OPERATOR): Presenting with urinary symptoms of right [...] 05/22/2024 Assessment & Plan (05/25/2024 7:52 AM LIQUOR BRIDGE OPERATOR): Hx of breast cancer c/b DVT/bilateral [...] 05/22/2024 Assessment & Plan (05/22/2024 1:14 PM LIQUOR BRIDGE OPERATOR): -long-standing chronic back pain -CT L [...] complication, without long-term current use of insulin ([facility]) 10/23/2017 Assessment & Plan (10/23/2017 [...] 10/13/2017 Assessment & Plan (05/22/2024 12:29 PM LIQUOR BRIDGE OPERATOR): -Hx stage II, ER positive, HER2 [...] 08/01/2017 Assessment & Plan (05/22/2024 12:33 PM LIQUOR BRIDGE OPERATOR): -Hx LUL -Hospital provided CPAP ordered History of DVT (deep vein thrombosis) 08/01/2017 History of pulmonary embolism 08/01/2017 Generalized weakness 07/27/2017 Dyspnea 07/27/2017 Unintentional weight loss 07/27/2017 Acute cystitis without hematuria 07/27/2017 Nausea and vomiting 07/26/2017 Overview (07/28/2017): Added automatically from request for surgery [id number] Pulmonary embolism 08/09/2016 Assessment & Plan (10/23/2017 2:05 AM CDT): On Rivaroxaban Lymphedema of left upper extremity 08/09/2016 Assessment & Plan (05/25/2024 7:53 AM LIQUOR BRIDGE OPERATOR): S/p L axillary lymph node dissection [...] syndrome Assessment & Plan (05/22/2024 11:18 AM LIQUOR BRIDGE OPERATOR): -continue home Requip 5mg nightly Pain of lower extremity 03/12/2013 Overview (07/29/2016): Leg pain Essential hypertension Assessment & Plan (05/23/2024 10:42 AM LIQUOR BRIDGE OPERATOR): -Chart history of HTN but not on meds -BP elevated on admission, likely some pain contributing -Monitor closely once pain under adequate control, discussed following up with PCP for this Chronic anticoagulation Restless leg syndrome 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 Type 2 diabetes mellitus without complication Assessment & Plan (05/24/2024 1:39 PM LIQUOR BRIDGE OPERATOR): -Last Ha1c 8.4 in 2023, repeat [...] left female breast, unspecified estrogen receptor status (HCC)patent engineer (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
--- OUTSIDE RECORDS SUMMARY | 2024-11-07 15:39 | XMS_ITS | Encounter Summary ---
Author Organization [facility] Address [address] [place] [address] Phone Care Team Providers Care Hand Cloth Cutter Name Role Phone Justen Gale MD Primary Care Provider [phone] David Roberts APRN, ROOFER HELPER VINYL COATING Unavailable Annel Rod MD Unavailable Reason for Visit * Reason Onset Date Comments Sore Throat 06/29/2020 Encounter Details Date Type Department Care Team (Late st Contact Info) Description 06/29/2020 Telephone [facility] [place] [address] [place] [address] Justen Gale MD [address] [address] Sore Throat Social History Tobacco Use Types [...] COVID-19? No / Unsure 06/29/2020 8:43 AM ACOUSTICAL CARPENTER documented as of this encounter Miscellaneous Notes * Telephone Encounter - Gail Lucero RN - 06/29/2020 3:53 PM CST Attempted to call mailbox is full. Pt does not need testing STICAL CARPENTER * Telephone Encounter - Vince Hermosillo MD - 06/29/2020 3:13 PM CST No covid testing needed. If the er thought that it was warranted then they would have done this. STICAL CARPENTER * Telephone Encounter - Marlys Sorensen RN - 06/29/2020 8:36 AM CST Patient calling. Patient is calling to schedule Hospital/ED/Prompt-Care follow up appointment. Hospital/ED/Prompt-Care Site: [facility] ED Records Requested: Yes Reason for [...] f/up and yearly PAP appointments? Please advise. STICAL CARPENTER documented in this encounter Plan of Treatment Upcoming Encounters Date Type Department Care Team (Late st Contact Info) Description 11/13/2024 2:00 PM CDT Appointment [facility] Cardiology Services [address] [place] [address] Angelito Alegria APRN, ROOFER HELPER VINYL COATING [address]2 [facility] [address] [place] [address] Discharge Disposition: Discharged to home or Selfcare 11/19/2024 2:00 PM CDT Office Visit [facility] - Endocrinology - [place] [address] [place] [address] Annel Rod MD #2 [facility] [address] [place] [address] documented as of this encounter Visit Diagnoses Not on filedocumented in this encounter Additional Health Concerns Infection Onset Date Last Indicated Resolved Time COVID - 19 08/01/2024 08/01/2024 08/01/2024 3:20 PM CDT Assessment Noted Time PHQ-9 Depression Total Score: 0 09/08/19 19 1:00 PM CDT documented as of this encounter Care Teams Hand Cloth Cutter Relationship Specialty Start Date End Date Justen Gale MD #2 [facility] [address] [place] [address] PCP - General Family Medicine 10/17/17 David Roberts APRN, ROOFER HELPER VINYL COATING [address] [place] [address] Nurse Practitioner Advanced Practice Nurse 01/31/22 Annel Rod MD #2 [facility] [address] [place] [address] Consulting Physician Endocrinology 07/01/22 documented as of this encounter
--- OUTSIDE RECORDS SUMMARY | 2024-11-07 15:39 | XMS_ITS | Clinical Summary ---
Author Organization [facility] Address [address] [place] [address] Care Team Providers Care Radio Equipment Installer Name Role Phone Liu Jerez MD Unavailable [phone] Albert Corbin MD Unavailable Justen Gale MD Primary Care Provider Khris Arthur MD Unavailable [phone] Ko Melendez MD Unavailable [phone] John Paul Moyer MD Unavailable Annel Rod [...] 05/22/2024 Assessment & Plan (05/26/2024 10:08 AM DAY CARE ATTENDANT): Presenting with urinary symptoms of right [...] 05/22/2024 Assessment & Plan (05/25/2024 7:52 AM DAY CARE ATTENDANT): Hx of breast cancer c/b DVT/bilateral [...] 05/22/2024 Assessment & Plan (05/22/2024 1:14 PM DAY CARE ATTENDANT): -long-standing chronic back pain -CT L [...] current use of insulin ([facility]) 10/23/2017 Assessment & Plan (10/23/2017 [...] 10/13/2017 Assessment & Plan (05/22/2024 12:29 PM DAY CARE ATTENDANT): -Hx stage II, ER positive, HER2 [...] 08/01/2017 Assessment & Plan (05/22/2024 12:33 PM DAY CARE ATTENDANT): -Hx LUL -Hospital provided CPAP ordered History of DVT (deep vein thrombosis) 08/01/2017 History of pulmonary embolism 08/01/2017 Generalized weakness 07/27/2017 Dyspnea 07/27/2017 Unintentional weight loss 07/27/2017 Acute cystitis without hematuria 07/27/2017 Nausea and vomiting 07/26/2017 Overview (07/28/2017): Added automatically from request for surgery [id number] Pulmonary embolism 08/09/2016 Assessment & Plan (10/23/2017 2:05 AM CDT): On Rivaroxaban Lymphedema of left upper extremity 08/09/2016 Assessment & Plan (05/25/2024 7:53 AM DAY CARE ATTENDANT): S/p L axillary lymph node dissection [...] syndrome Assessment & Plan (05/22/2024 11:18 AM DAY CARE ATTENDANT): -continue home Requip 5mg nightly Pain of lower extremity 03/12/2013 Overview (07/29/2016): Leg pain Essential hypertension Assessment & Plan (05/23/2024 10:42 AM DAY CARE ATTENDANT): -Chart history of HTN but not on meds -BP elevated on admission, likely some pain contributing -Monitor closely once pain under adequate control, discussed following up with PCP for this Chronic anticoagulation Restless leg syndrome 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 Type 2 diabetes mellitus without complication Assessment & Plan (05/24/2024 1:39 PM DAY CARE ATTENDANT): -Last Ha1c 8.4 in 2023, repeat [...] 0.6 oz pur e alcohol) [facility] Ooplooities Answer Date Recorded In the past 12 months has [employer], gas, oil, or water [employer] threatened to shut off services in your [...] often do you attend chur ch or bahai services? More than 4 times per year [...] in a longterm (including now)? No 08/15/2023 Housing Stability Vital [...] living in a longterm (including now)? No 05/24/2024 Personal Safety Answer Date Recorded Have you ever been in or are you currently in a harmful physical or emotional relationship or is someone making you feel afraid or unsafe? Denies 07/01/2024 Comments No Sex and Gender Information Value Date Recorded Sex Assigned at Not on file Legal Sex Female 12:24 AM DAY CARE ATTENDANT Gender Identity Not on file Sexual [...] 2021 Osteoporosis Screening-Bone Density Scan 08/02/2024 08/02/2022, 11/10/2020, 05/15/2017 Hemoglobin A1C 11/19/2024 05/22/2024, 04/25, 08/14/2023, Additional history exists Influenza Vaccine (#1) 2024 3, 01/03/2022, 05/04/2021, Additional history exists Lipid Panel [...] CDT HEMOGLOBIN A1C STAT 05/21/2024 4:20 PM DAY CARE ATTENDANT LIPID PANEL STAT 05/21/2024 4:20 PM DAY CARE ATTENDANT DEXA AXIAL SKELETON BONE DENSITY 1 OR [...] Testing performed by: [facility], [address] [place] [address]., [id number] Blood 07/01/2024 2:02 PM CDT 07/01/2024 2:12 PM CDT us Ilana Stevens MD LAB BLOOD ORDERABLES F inal Result [facility] [address] [facility] Department [place] [address] * (ABNORMAL) Hemoglobin A1c (05/21/2024 4:20 PM DAY CARE ATTENDANT) Hgb A1C 8.7(H) 4.0 - 5.6 % Estimated Average Glucose 203 mg/dL [facility] Comment: The ADA recommends reporting an estimated Average Glucose (eAG) with all Hemoglobin A1c results using the equation derived from a study of 507 normal and diabetic adults. Minority populations were underrepresented and children were not included. (Diabetes Care 2020; 43(S1): S66-S76). The eAG is not equivalent to a fasting glucose. Blood 05/21/2024 4:20 PM DAY CARE ATTENDANT 05/21/2024 4:55 PM DAY CARE ATTENDANT us Leo Henry MD LAB BLOOD ORDERABLES Final Result [facility] Department [place] [address] * (ABNORMAL) Lipid panel (05/21/2024 4:20 PM DAY CARE ATTENDANT) Cholesterol 205(H) 30 - 199 mg/dL [...] 2017. Triglycerides 92 <=149 mg/dL [facility] Comment: Interpretive Data Ages < or [...] 2017. HDL 55 >=40 mg/dL [facility] Comment: Interpretive Data Ages < or [...] LDL, calculated 134(H) <=129 mg/dL [facility] Comment: Interpretive Data Ages < or [...] on 2023. Non-HDL Cholesterol 150 mg/dL [facility] Comment: Interpretive Data Ages < or [...] revised on 2017. Chol/HDL ratio 4 [facility] Blood 05/21/2024 4:20 PM DAY CARE ATTENDANT 05/21/2024 4:50 PM DAY CARE ATTENDANT Narrative [facility] - 05/22/2024 4:17 PM DAY CARE ATTENDANT Reflex us Leo Henry MD LAB BLOOD ORDERABLES Final Result [facility] Department [place] [address] * Dexa Axial Skeleton Bone Density 1 or 2 Site (08/02/2022 10:53 AM CDT) Anatomical Region Laterality Modality Body N/A Radiographic Lizeth ging Narrative 08/02/2022 3:34 PM CDT Patient Name: Karly Marques Date of : 1955 Date of scan: 08/02/2022 Bone mineral density was performed on a HoloSetMeUp Discovery Densitometer. Based on machine cross-calibration and [...] by the International Society of Clinical Densitometry. [id number] us Khris Arthur MD IMG DXA PROCEDURES [...] agrees with it. ACC# Date Time Exam [id number] Aug 19, 2016 14:27:00 [facility] [id number] Dia Mamm, inc CAD, unilat L Technologist(s): Carla Harris; ; [id number] Aug 19, 2016 15:39:00 [facility] [id number] Breast US unilateral, ltd L ACC# Date Time Exam [id number] Aug 19, 2016 14:27:00 [facility] [id number] Dia Mamm, inc CAD, unilat L Technologist(s): Carla Harris; ; [id number] Aug 19, 2016 15:39:00 [facility] [id number] Breast US unilateral, ltd L EXAMINATION: LEFT [...] SARABIA M.D. on Aug 19 2016 4:20P [id number] Procedure Note Miscellaneous, Not In File / Provider, MD Tyler - 09/17/2016 ANTHONY SARABIA M.D. JUDY RINCON M.D. FINAL REPORT The radiology attending physician has personally reviewed this study, and has reviewed and/or edited this written report and agrees with it. ACC# Date Time Exam [id number] Aug 19, 2016 14:27:00 [facility] [id number] Diag Mamm, inc CAD, unilat L Technologist(s): Carla Harris; ; [id number] Aug 19, 2016 15:39:00 [facility] [id number] Breast US unilateral, ltd L ACC# Date Time Exam [id number] Aug 19, 2016 14:27:00 [facility] [id number] Diag Mamm, inc CAD, unilat L Technologist(s): Carla Harris; ; [id number] Aug 19, 2016 15:39:00 [facility] [id number] Breast US unilateral, ltd L EXAMINATION: LEFT [...] SARABIA M.D. on Aug 19 2016 4:20P [id number] us Not In File Miscellaneous IMG MAMMO PROCEDURES F inal Result from Last 3 Months or Most Recently Relevant to Health Maintenance Insurance IDPA [facility] MEDICARE ADVANTAGE [facility] MEDICARE ADVANTAGE [facility] MEDICARE ADVANTAGE Advance Directives For more information, please contact: [phone] Documents on File Type Date Recorded Patient Cull Grader Expl anation ADVANCE DIRECTIVE 12/23/2021 2:49 PM Power of Coagulant Dipper-Medical ADVANCE DIRECTIVE 12/23/2021 2:49 PM Living Will [...] Agents on File Name Relationship Healthcare Agent [facility] Alexander Campushi Communication Yunior Marques Daughter Health Care Agent Jimmie Marques Spouse First Alternate Health Care Agent Care Teams Radio Equipment Installer Relationship Specialty Start Date End Date Justen Gale MD 2 [facility] [address] [place] [address] PCP - General 10/09/17 Liu Jerez MD Consulting Physician Gastroenterology 07/28/17 [place] [address] [facility] [address] [place] [address] Consulting Physician Pulmonary Disease 08/03/17 [place] [address] [place] [address] [address] [place] [address] Medical Oncologist/Replenishment Merchandising Associate Medical Oncology 10/23/17 [place] [address] [facility] [address] [place] [address] Surgeon Orthopedic Surgery 10/23/17 [place] [address] [address] Consulting Physician Pain Management 10/23/17 [place] [address] [address] Referring Physician General Surgery 01/26/18 [place] [address] [facility] [address] [place] [address] Consulting Physician Neurology 01/26/18
[2024-11-07 15:40] VITALS: BP 173/100; PULSE 94; RESP 18; TEMP 36.8; O2SAT 96
--- OUTSIDE RECORDS SUMMARY | 2024-11-07 15:40 | XMS_ITS | Encounter Summary ---
Author Organization [facility] Address [address] [place] [address] Phone Care Team Providers Care Special Equipment Technician Name Role Phone Justen Gale MD Primary Care Provider [phone] David Roberts APRN, COMMISSIONING SPECIALIST Unavailable [phone] Annel Rod MD Unavailable Reason for Visit * Reason Comments Medication Refill Encounter Details Date Type Department Care Team (Late st Contact Info) Description 03/13/2021 Refill [facility] [address] [place] [address] Justen Gale MD #[address] [address] Medication Refill Social History Tobacco [...] COVID-19? No / Unsure 03/02/2021 5:05 PM PSYCHIATRIST documented as of this encounter Plan of Treatment Upcoming Encounters Date Type Department Care Team (Late st Contact Info) Description 11/13/2024 2:00 PM CDT Appointment [facility] Cardiology Services 1 [place] [address] Angelito Alegria, TRENCH SHOVEL OPERATOR, COMMISSIONING SPECIALIST #2 [facility] [address] [place] [address] Discharge Disposition: Discharged to home or Selfcare 11/19/2024 2:00 PM CDT Office Visit [facility] #2 [place] [address] Annel Rod MD #2 [facility] [address] [place] [address] documented as of this encounter Visit Diagnoses Not on filedocumented in this encounter Additional Health Concerns Infection Onset Date Last Indicated Resolved Time COVID - 19 08/01/2024 08/01/2024 08/01/2024 3:20 PM CDT Assessment Noted Time PHQ-9 Depression Total Score: 0 07/21/19 21 3:00 PM CDT documented as of this encounter Care Teams Special Equipment Technician Relationship Specialty Start Date End Date Justen Gale MD #[address] [address] PCP - General Family Medicine 10/17/17 David Roberts APRN, COMMISSIONING SPECIALIST #2 [place] [address] Nurse Practitioner Advanced Practice Nurse 01/31/22 Annel Rod MD #2 [place] [phone] Consulting Physician Endocrinology 07/01/22 documented as of this encounter
--- OUTSIDE RECORDS SUMMARY | 2024-11-07 15:40 | XMS_ITS | Encounter Summary ---
Author Organization [facility] Address [address] [place] [address] Phone Care Team Providers Care Rail Transportation Operator Name Role Phone Justen Gale MD Primary Care Provider David Roberts APRN, CEMENT MASON Unavailable Annel Rod MD Unavailable Reason for Visit * Reason Comments Medication Refill Encounter Details Date Type Department Care Team (Late st Contact Info) Description 02/07/2023 Refill [facility] Family [facility] #2 [place] [address] Pili Elkins APRN, CEMENT MASON #[address] [address] Medication Refill Social History Tobacco [...] Info) Description 11/13/2024 2:00 PM CDT Appointment [facility] Cardiology Services 1 [place] [address] Angelito Alegria, ZAMZAM, CEMENT MASON #2 [facility] [address] [place] [address] Discharge Disposition: Discharged to home or Selfcare 11/19/2024 2:00 PM CDT Office Visit [facility] Endocrinology - [place] #2 [place] [phone] Annel Rod MD #2 [facility] [address] [place] [address] documented as of this encounter Visit Diagnoses Diagnosis Essential hypertension Unspecified essential hypertension documented in this encounter Additional Health Concerns Infection Onset Date Last Indicated Resolved Time COVID - 19 08/01/2024 08/01/2024 08/01/2024 3:20 PM CDT Assessment Noted Time PHQ-9 Depression Total Score: 8 01/18/20 2:24 PM CDT documented as of this encounter Care Teams Rail Transportation Operator Relationship Specialty Start Date End Date Justen Gale MD #2 [facility] [address] [place] [address] PCP - General Family Medicine 10/17/17 David Roberts APRN, CEMENT MASON #2 [place] [address] Nurse Practitioner Advanced Practice Nurse 01/31/22 Annel Rod MD #2 [facility] [address] [place] [address] Consulting Physician Endocrinology 07/01/22 documented as of this encounter
--- OUTSIDE RECORDS SUMMARY | 2024-11-07 15:40 | XMS_ITS | Encounter Summary ---
Author Organization [facility] Address [address] [place] [address] Phone Care Team Providers Care Livestock Commission Agent Name Role Phone Justen Gale MD Primary Care Provider David Roberts APRN, REPLENISHMENT ASSOCIATE Unavailable [phone] Annel Rod MD Unavailable Reason for Visit * Reason Onset Date Comments Advice Only 08/19/2024 Follow-up 08/19/2024 Encounter Details Date Type Department Care Team (Late st Contact Info) Description 08/19/2024 Telephone [facility] - [facility] #2 [place] [address] Justen Gale MD #[address] [address] Advice Only; Follow-up Social History Tobacco Use [...] often do you attend chur ch or jain services? More than 4 times [...] 1-9 0 07/23 [facility] - Occupational Stress Questionnaire Answer Date [...] living in a mcfp (including now)? No 08/06/2024 Education Answer Date [...] visit * Telephone Encounter - Angelito Alegria, QUALITY ASSURANCE MONITOR, REPLENISHMENT ASSOCIATE - 08/19/2024 9:04 AM CDT Forwarding * Telephone Encounter - Isaura Weiss RN - 08/19/2024 8:37 AM CDT Situation: Strep throat follow up Background: Patient contacting PCP office. Patient was seen in ED on 08/09 and 08/12 in [place] (records in chart). Diagnosed with strep. Assessment: [...] CDT Symptom: Sore Throat Outcome: Transfer to grain spouter queue Reason: Caller denied all higher acuity questions The caller accepted this outcome. Caller Denied: * Struggling for each breath (severe trouble breathing) * Can't swallow saliva (drooling) documented in this encounter Plan of Treatment Upcoming Encounters Date Type Department Care Team (Late st Contact Info) Description 11/13/2024 2:00 PM CDT [facility] 1 [place] [address] Angelito Alegria APRN, REPLENISHMENT ASSOCIATE #[address] [address] Discharge Disposition: Discharged to home or Selfcare 11/19/2024 2:00 PM CDT Office Visit [facility] - [place] #[address] [place] [address] Annel Rod MD #2 [facility] [address] [place] [address] documented as of this encounter Visit Diagnoses Not on filedocumented in this encounter Additional Health Concerns Assessment Noted Time PHQ-9 Depression Total Score: 0 08/02/19 25 1:09 PM CDT documented as of this encounter Care Teams Livestock Commission Agent Relationship Specialty Start Date End Date Justen Gale MD #2 [facility] [address] [place] [address] PCP - General Family Medicine 10/17/17 David Roberts, QUALITY ASSURANCE MONITOR, REPLENISHMENT ASSOCIATE #2 [place] [address] Nurse Practitioner Advanced Practice Nurse 01/31/22 Annel Rod MD #[address] [address] Consulting Physician Endocrinology 07/01/22 documented as of this encounter
--- OUTSIDE RECORDS SUMMARY | 2024-11-07 15:40 | XMS_ITS | Encounter Summary ---
Author Organization [facility] Address [address] [place] [address] Phone Care Team Providers Care Class C Driver Name Role Phone Justen Gale MD Primary Care Provider David Roberts APRN, MANAGER CREDIT Unavailable Annel Rod MD Unavailable Reason for Visit * Reason Onset Date Comments Medication Refill 08/06/2020 Encounter Details Date Type Department Care Team (Late st Contact Info) Description 08/06/2020 Refill [facility] #2 [facility] [place] [phone] Justen Gale MD #[address] [address] Medication Refill Social History Tobacco Use Types [...] Outpatient Visits 2 weeks ago [facility] Pili Mueller APN, MANAGER CREDIT 2 months ago Increased urinary frequency [facility] Pili Mueller APN, MANAGER CREDIT 5 months ago Urinary frequency [facility] Pili Mueller APN, MANAGER CREDIT 8 months ago Type 2 diabetes mellitus with diabetic polyneuropathy, with long- term current use of insulin (HCC) [facility] Pili Mueller APN, MANAGER CREDIT 9 months ago [facility] Justen Urbano MD Upcoming Appointments Future Appointments In 6 days Pili Elkins APN, MANAGER CREDIT [facility] TESTER PRINTED CIRCUIT BOARDS - Recent and Past Visits Recent Visits Date Type Provider Dept 07/20/20 Office Visit Pili Elkins APN, MANAGER CREDIT [facility] 06/05/20 Office Visit Pili Elkins APN, NETTA [facility] 02/17/20 Office Visit Pili Elkins APN, NETTA [facility] 12/03/19 Office Visit Pili Elkins APN, NETTA [facility] 11/05/19 Telemedicine Justen Gale MD [facility] 07/25/19 Telemedicine Justen Gale MD [facility] Show[facility] recent visits within past 460 days with a meds authorizing provider and meeting all other requirements Future Appointments Date Type Provider Dept 08/12/20 Appointment Pili Elkins APN, CNP [facility] Showing future appointments within next 90 days [...] Info) Description 11/13/2024 2:00 PM CDT [facility] 1 [place] [address] Angelito Alegria APRN, NETTA #[address] [address] Discharge Disposition: Discharged to home or Selfcare 11/19/2024 2:00 PM CDT Office Visit [facility] - [place] #2 [place] [address] Annel Rod MD #[address] [address] documented as of this encounter Visit Diagnoses Not on filedocumented in this encounter Additional Health Concerns Infection Onset Date Last Indicated Resolved Time COVID - 19 08/01/2024 08/01/2024 08/01/2024 3:20 PM CDT Assessment Noted Time PHQ-9 Depression Total Score: 0 07/21/19 3:00 PM CDT documented as of this encounter Care Teams Class C Driver Relationship Specialty Start Date End Date Justen Gale MD #[address] [address] PCP - General Family Medicine 10/17/17 David Roberts APRN, MANAGER CREDIT #2 [place] [address] Nurse Practitioner Advanced Practice Nurse 01/31/22 Annel Rod MD #[address] [address] Consulting Physician Endocrinology 07/01/22 documented as of this encounter
--- OUTSIDE RECORDS SUMMARY | 2024-11-07 15:40 | XMS_ITS | Encounter Summary ---
Author Organization [facility] Address [address] [place] [address] Phone Care Team Providers Care Order Control Clerk Blood Bank Name Role Phone Justen Gale MD Primary Care Provider David Roberts APRN, RETANNED LEATHER ROLLER Unavailable Annel Rod MD Unavailable Reason for Visit * Reason Comments Medication Refill Encounter Details Date Type Department Care Team (Late st Contact Info) Description 02/17/2021 Refill [facility] #2 [place] [phone] Justen Gale MD #[address] [address] Medication Refill Social History Tobacco Use Types [...] [facility] 06/05/20 Office Visit Pili Elkins APRN, RETANNED LEATHER ROLLER [facility] Showing recent visits within past 365 days and meeting all other requirements Future Appointments Date Type Provider Dept 03/02/21 Appointment Vince Hermosillo MD [facility] Showing future appointments within next 90 days and meeting all other requirements documented in this encounter Plan of Treatment Upcoming Encounters Date Type Department Care Team (Late st Contact Info) Description 11/13/2024 2:00 PM CDT [facility] 1 [place] [address] Angelito Alegria APRN, RETANNED LEATHER ROLLER #[address] [address] Discharge Disposition: Discharged to home or Selfcare 11/19/2024 2:00 PM CDT Office Visit [facility] - [facility]ocrinology [facility] #2 [place] [address] Annel Rod MD #2 [facility] [address] [place] [address] documented as of this encounter Visit Diagnoses Not on filedocumented in this encounter Additional Health Concerns Infection Onset Date Last Indicated Resolved Time COVID - 19 08/01/2024 08/01/2024 08/01/2024 3:20 PM CDT Assessment Noted Time PHQ-9 Depression Total Score: 0 07/21/19 3:00 PM CDT documented as of this encounter Care Teams Order Control Clerk Blood Bank Relationship Specialty Start Date End Date Justen Gale MD #[address] [address] PCP - General Family Medicine 10/17/17 David Roberts APRN, RETANNED LEATHER ROLLER #2 [place] [address] Nurse Practitioner Advanced Practice Nurse 01/31/22 Annel Rod MD #[address] [address] Consulting Physician Endocrinology 07/01/22 documented as of this encounter
--- OUTSIDE RECORDS SUMMARY | 2024-11-07 15:40 | XMS_ITS | Encounter Summary ---
Author Organization [facility] Address [address] [place] [address] Phone Care Team Providers Care Brand Strategy Manager Name Role Phone Liu Jerez MD Unavailable Albert Corbin MD Unavailable Justen Gale MD Primary Care Provider Khris Arthur MD Unavailable [phone] Ko Melendez MD Unavailable John Paul Moyer MD Unavailable Annel Rod MD Unavailable Anali MARSHALL MD, Carlos M. Unavailable [phone] Encounter Details Date Type Department Care Team [...] on file Legal Sex Female 12:24 AM SPLICING TECHNICIAN Gender Identity Not on file Sexual [...] COVID: Recovered 02/10/2022 02/10/2022 06/10/2022 3:05 AM SPLICING TECHNICIAN Exposure, COVID-19 Comment:Added automatically based on COVID19 lab answers indicating exposure risk 02/11/2022 02/11/2022 02/15/2022 9:06 AM C DT COVID: Suspected 05/14/2022 05/14/2022 05/14/2022 10:41 AM SPLICING TECHNICIAN COVID: Suspected 06/07/2022 06/07/2022 06/07/2022 12:28 PM SPLICING TECHNICIAN COVID: Suspected 06/21/2022 06/21/2022 06/21/2022 2:12 AM SPLICING TECHNICIAN COVID: Suspected 10/05/2022 10/05/2022 10/05/2022 7:40 PM CDT COVID: Suspected 01/04/2024 01/04/2024 01/04/2024 10:30 PM CDT COVID: Suspected 02/14/2024 02/14/2024 02/15/2024 12:36 AM CDT COVID: Suspected 07/01/2024 07/01/2024 07/01/2024 2:53 PM CDT COVID: Suspected 07/01/2024 07/01/2024 07/02/2024 3:05 AM CDT documented as of this encounter Care Teams Brand Strategy Manager Relationship Specialty Start Date End Date Justen Gale MD 2 [facility] [address] [place] [address] PCP - General 10/09/17 Liu Jerez MD Consulting Physician Gastroenterology 07/28/17 [place] [address] [facility] [address] [place] [address] Consulting Physician Pulmonary Disease 08/03/17 [place] [address] [place] [address] [address] [place] [address] Medical Oncologist/Chemical Packager Medical Oncology 10/23/17 [place] [address] [address] Surgeon Orthopedic Surgery 10/23/17 [place] [address] [facility] [address] [place] [address] Consulting Physician Pain Management 10/23/17 [place] [address] [address] Referring Physician General Surgery 01/26/18 [place] [address] [facility] [address] [place] [address] Consulting Physician Neurology 01/26/18 documented as of this encounter
--- OUTSIDE RECORDS SUMMARY | 2024-11-07 15:40 | XMS_ITS | Encounter Summary ---
Author Organization [facility] Address [address] [place] [address] Phone Care Team Providers Care Principal Automation Engineer Name Role Phone Justen Gale MD Primary Care Provider David Roberts APRN, SERVICE CREW SUPERVISOR Unavailable Annel Rod MD Unavailable Reason for Visit * Reason Onset Date Comments Advice Only 11/21/2023 Encounter Details Date Type Department Care Team (Late st Contact Info) Description 11/21/2023 Telephone [facility] [address] [place] [address] Justen Gale MD #[address] [address] Advice Only Social History Tobacco Use Types [...] 11/21/2023 3:17 PM CDT RFC: Alejandra from [facility] is calling to state that patient is listed as being a diabteic but is not on a statin. Please call Alejandra (relationship to patient n/a) back regarding above referenced patient. Patient's Provider is Justen Gale MD . documented in this encounter Plan of Treatment Upcoming Encounters Date Type Department Care Team (Late st Contact Info) Description 11/13/2024 2:00 PM CDT Appointment [facility] Cardiology Services 1 [place] [address] Angelito Alegria, ETHNOARCHAEOLOGY PROFESSOR, SERVICE CREW SUPERVISOR #2 [facility] [address] [place] [address] Discharge Disposition: Discharged to home or Selfcare 11/19/2024 2:00 PM CDT Office Visit [facility] - [place] #2 [place] [address] Annel Rod MD #2 [facility] [address] [place] [address] documented as of this encounter Visit Diagnoses Not on filedocumented in this encounter Additional Health Concerns Infection Onset Date Last Indicated Resolved Time COVID - 19 08/01/2024 08/01/2024 08/01/2024 3:20 PM CDT Assessment Noted Time PHQ-9 Depression Total Score: 8 01/18/20 2:24 PM CDT documented as of this encounter Care Teams Principal Automation Engineer Relationship Specialty Start Date End Date Justen Gale MD #2 [facility] [address] [place] [address] PCP - General Family Medicine 10/17/17 David Roberts APRN, NETTA #2 [place] [address] Nurse Practitioner Advanced Practice Nurse 01/31/22 Annel Rod MD #2 [facility] [address] [place] [address] Consulting Physician Endocrinology 07/01/22 documented as of this encounter
--- OUTSIDE RECORDS SUMMARY | 2024-11-07 15:40 | XMS_ITS | Encounter Summary ---
Author Organization [facility] Address [address] [place] [address] Phone Care Team Providers Care Bioassayist Name Role Phone Justen Gale MD Primary Care Provider [phone] David Roberts APRN, FISH MACHINE FEEDER Unavailable [phone] Annel Rod MD Unavailable Reason for Visit * Reason Onset Date Comments Medication Refill 11/06/2024 Encounter Details Date Type Department Care Team (Late st Contact Info) Description 11/06/2024 MyChart RX Renewal [facility] #2 [place] [address] Justen Gale MD #[address] [address] Medication Renewal Declined Social History Tobacco Use Types Packs/Day Years Used Date Smoking Tobacco: Never Smokeless Tobacco: Never Alcohol Use Standard Drinks/Week Comments No 0 (1 standard drink = 0.6 oz pur e alcohol) [facility] Utilities Answer Date Recorded In the past 12 months has [employer] electric, gas, oil, or water company threatened [...] Total Score - Questions 1-9 0 07/23 [facility] Occupat ional Health - Occupational Stress [...] any time in the past 12 m [facility], were you homeless or living [...] Telephone Encounter - Marlys Anderson RN - 11/06/2024 12:54 PM CDT Medication failed the protocol, provider to review and approve the medication order if appropriate. Requested Prescriptions Pending Prescriptions Disp Refills ondansetron (Zofran) 4 MG Tablet 15 Tablet 0 Sig: Take 1 Tablet by mouth every 8 hours as needed for Nausea - 1st line. Not Delegated - 5-HT3 Antagonists Protocol Failed - 11/06/2024 12:54 PM Failed - This refill cannot be delegated Passed - Visit with relevant provider in past 12 months or upcoming 90 days Recent Visits Date Type Provider Dept 09/06/24 Office Visit Dulce Wolff APRN, NETTA [facility] [place] 08/20/24 Office Visit Justen [facility]ale MD [facility] [place] 08/07/24 Office Visit [facility] 08/[facility]/24 Office Visit Angelito Alegria APRN, CNP [facility] [place] 01/17/24 [facility] 11/08/23 Office Visit Justen Gale MD [facility] Showing recent visits within past 365 days and meeting all other requirements Future Appointments No visits were found meeting these conditions. Showing future appointments within next 90 days and meeting all other requirements documented in this encounter Plan of Treatment Upcoming Encounters Date Type Department Care Team (Late st Contact Info) Description 11/13/2024 2:00 PM CDT [facility]ointment [facility] 1 [place] [address] Angelito Alegria APRN, NETTA #[address] [address] Discharge Disposition: Discharged to home or Selfcare 11/19/2024 2:00 PM CDT [facility] Visit [facility] #2 [place] [address] Annel Rod MD #[address] [address] documented as of this encounter Visit Diagnoses Not on filedocumented in this encounter Additional Health Concerns Assessment Noted Time PHQ-9 Depression Total Score: 0 08/02/19 25 1:09 PM CDT documented as of this encounter Care Teams Bioassayist Relationship Specialty Start Date End Date Justen Gale MD #[address] [address] PCP - General Family Medicine 10/17/17 David Roberts APRN, FISH MACHINE FEEDER #2 [place] [address] Nurse Practitioner Advanced Practice Nurse 01/31/22 Annel Rod MD #[address] [address] Consulting Physician Endocrinology 07/01/22 documented as of this encounter
--- OUTSIDE RECORDS SUMMARY | 2024-11-07 15:40 | XMS_ITS | Encounter Summary ---
Author Organization [facility] Address [address] [place] [address] Phone Care Team Providers Care Cream Maker Name Role Phone Justen Gale MD Primary Care Provider David Roberts APRN, HOLTER SCANNING TECHNICIAN Unavailable Annel Rod MD Unavailable Reason for Visit * Reason Onset Date Comments Sore Throat 09/02/2024 Encounter Details Date Type Department Care Team (Late st Contact Info) Description 09/02/2024 Nurse Triage [facility] [address] [place] [address] Justen Gale MD #[address] [address] Sore Throat Social History Tobacco Use Types Packs/Day Years Used Date Smoking Tobacco: Never Smokeless Tobacco: Never Alcohol Use Standard Drinks/Week Comments No 0 (1 standard drink = 0.6 oz pur e alcohol) [facility] Utilities Answer Date Recorded In the past [...] How often do you attend chur or methodist services? More than 4 times [...] Pharmacy, medications, and allergies reviewed. Discussed utilizing Stamped to: discuss if they would prefer a Stamped message or phone call response - See [...] Ulcers - Caller Reports Outcome: Transfer to project facilitator queue Reason: Caller denied all higher acuity questions The caller accepted this outcome. Caller Denied: * Struggling for each breath (severe trouble breathing) * Can't swallow saliva (drooling) documented in this encounter Plan of Treatment Upcoming Encounters Date Type Department Care Team (Late st Contact Info) Description 11/13/2024 2:00 PM CDT Appointment [facility] Cardiology Services 1 [place] [address] Angelito Alegria APRN, HOLTER SCANNING TECHNICIAN #[address] [address] Discharge Disposition: Discharged to home or Selfcare 11/19/2024 2:00 PM CDT [facility] Visit [facility] [place] #2 [place] [address] Annel Rod MD #[address] [address] documented as of this encounter Visit Diagnoses Not on filedocumented in this encounter Additional Health Concerns Assessment Noted Time PHQ-9 Depression Total Score: 0 08/02/19 25 1:09 PM CDT documented as of this encounter Care Teams Cream Maker Relationship Specialty Start Date End Date Justen Gale MD #[address] [address] PCP - General Family Medicine 10/17/17 David Roberts APRN, HOLTER SCANNING TECHNICIAN #2 [place] [address] Nurse Practitioner Advanced Practice Nurse 01/31/22 Annel Rod MD #[address] [address] Consulting Physician Endocrinology 07/01/22 documented as of this encounter
--- OUTSIDE RECORDS SUMMARY | 2024-11-07 15:40 | XMS_ITS | Encounter Summary ---
Author Organization [facility] Address [address] [place] [address] Phone Care Team Providers Care Chief Internal Auditor Name Role Phone Justen Gale MD Primary Care Provider [phone] David Roberts APRN, REGISTERED MEDICAL ASSISTANT Unavailable Annel Rod MD Unavailable Reason for Visit * Reason Comments Medication Refill Encounter Details Date Type Department Care Team (Late st Contact Info) Description 02/07/2020 Refill [facility] [address] [place] [address] Justen Gale MD #[address] [address] Medication Refill Social History Tobacco Use Types [...] Info) Description 11/13/2024 2:00 PM CDT [facility] 1 [place] [address] Angelito Alegria APRN, REGISTERED MEDICAL ASSISTANT #[address] [address] Discharge Disposition: Discharged to home or Selfcare 11/19/2024 2:00 PM CDT Office Visit [facility] #2 [place] [address] Annel Rod MD #[address] [address] documented as of this encounter Visit Diagnoses Not on filedocumented in this encounter Additional Health Concerns Infection Onset Date Last Indicated Resolved Time COVID - 19 08/01/2024 08/01/2024 08/01/2024 3:20 PM CDT Assessment Noted Time PHQ-9 Depression Total Score: 0 09/08/19 1:00 PM CDT documented as of this encounter Care Teams Chief Internal Auditor Relationship Specialty Start Date End Date Justen Gale MD #[address] [address] PCP - General Family Medicine 10/17/17 David Roberts APRN, NETTA #2 [facility] [place] [address] Nurse Practitioner Advanced Practice Nurse 01/31/22 Annel Rod MD #[address] [address] Consulting Physician Endocrinology 07/01/22 documented as of this encounter
--- OUTSIDE RECORDS SUMMARY | 2024-11-07 15:40 | XMS_ITS | Clinical Summary ---
Author Organization [facility] Address [address] [place] [address] Phone Care Team Providers Care Metals Analyst Name Role Phone Justen Gale MD Primary Care Provider [phone] Allergies Active Allergy Reactions Criticality Noted Date Comments Ceftriaxone Anaphylaxis High 09/14/2017 Metoclopramide Hcl Unknown 09/14/2017 Oxycodone Nausea and Vomiting Low 09/14/2017 Medications HYDROcodone-asra taminophen (NORCO) 5-325 mg tablet Take 1 [...] MONTHS 06/25/20232022, 10/31/2021, 09/28/2017 INFLUENZA VACCINE (#1) 2024 2, 05/04/2021, 02/03/2020, Additional history exists DTAP/TDAP/TD [...] - 6.0 % 09/29/2017 10:28 AM CDT [employer] [facility] EST. AVG GLUCOSE, A1C 186 mg/dL 09/29/2017 10:28 AM CDT [employer] [facility] Blood Venipuncture / Unknown 09/28/2017 8:41 PM CDT 09/28/2017 8:46 PM CDT Narrative [facility] - 09/29/2017 10:28 AM CDT HGB A1C INTERPRETATION NORMAL: <5.7% PRE-DIABETES: 5.7 - 6.4% DIABETES: 6.5% OR GREATER us Francisco Castaneda MD CHEMISTRY ORDERABLES Final Resul t [facility] [employer] [facility]# [id number] [address] [facility] [place] [address] * (ABNORMAL) LIPID PANEL (09/28/2017 8:41 PM CDT) CHOLESTEROL 174 <200 mg/dL 09/30/2017 2:45 AM CDT [facility] [employer] [facility] TRIGLYCERIDE 109 <150 mg/dL 09/30/2017 2:45 AM CDT [facility] [employer] [facility] HDL 45 40 - 59 mg/dL 09/30/2017 2:45 AM CDT [facility] [employer] [facility] LDL CALCULATED 107(H) <100 mg/dL 09/30/2017 2:45 AM CDT [facility] [employer] [facility] NON-HDL CHOLESTEROL 129 <130 mg/dL 09/30/2017 2:45 AM CDT [facility] [employer] [facility] Blood Venipuncture / Unknown 09/28/2017 8:41 PM CDT 09/28/2017 8:46 PM CDT Narrative [facility] - 09/30/2017 2:45 AM CDT TOTAL [...] ORDERABLES Final Resul t [facility] [facility] [id number] 5 [address] [facility] [place] [address] from Last 3 Months or Most Recently Relevant to Health Maintenance Insurance Advance Directives For more information, please contact: [phone] * Full Code (Latest Code Status on File) Date Activated Date Inactivated Comments 09/29/2017 7:45 AM 09/30/2017 9:14 PM * Full Code Date Activated Date Inactivated Comments 09/29/2017 1:25 AM 09/29/2017 7:45 AM Care Teams Metals Analyst Relationship Specialty Start Date End Date Justen Gale MD [address] [facility] [[email or web address] [address] [place] [address] PCP - General Cardiovascular Disease 09/14/17
--- OUTSIDE RECORDS SUMMARY | 2024-11-07 15:40 | XMS_ITS | Patient Health Record ---
Author Organization [facility] Address [address] [facility] [address] [facility] [address] [place] [address] Care Team Providers Care Detective Supervisor Name Role Phone Yo DURÁN, Lavonne Primary Care Provider Unavail able Reason For Referral No Information Plan Of Treatment No Information Insurance Providers Payer Name Payer Address Payer Phone Subscriber Number Group Number Insured Name Patient Relationship to Insured Coverage Start Date Coverage End Date [facility] [employer] [address] [address] [place], [place] [id number] Karly Marques Self - patient is the insured
--- OUTSIDE RECORDS SUMMARY | 2024-11-07 15:40 | XMS_ITS | Encounter Summary ---
Author Organization [facility] Address [address] [place] [address] Phone Care Team Providers Care Stand In Name Role Phone Justen Gale MD Primary Care Provider David Roberts APRN, PATTERNMAKER PLASTER AND PLASTIC Unavailable Annel Rod MD Unavailable Reason for Visit * Reason Comments Medication Refill Encounter Details Date Type Department Care Team (Late st Contact Info) Description 07/12/2022 Refill [facility] #2 [place] [address] Justen Gale MD #[address] [address] Medication Refill Social History Tobacco Use Types [...] 07/05/22 Office Visit Pili Elkins APRN, NETTA [facility] [place] 05/02/22 Office Visit Justen Gale MD [facility] [place] 03/03/22 Office Visit Pili Elkins APRN, PATTERNMAKER PLASTER AND PLASTIC [facility] [place] 01/03/22 Office Visit Dannielle Berg PAC [facility] [place] 12/07/21 Office Visit Pili Elkins APRN, ENTTA [facility] [place] 11/09/21 Office Visit Pili Elkins APRN, NETTA [facility] [place] 10/08/21 Office Visit Angelito Alegria APRN, NETTA [facility] [place] 08/30/21 [facility] recent visits within past 365 days and meeting all other requirements Future Appointments No visits were found meeting these conditions. Showing future appointments within next 90 days and meeting all other requirements documented in this encounter Plan of Treatment Upcoming Encounters Date Type Department Care Team (Late st Contact Info) Description 11/13/2024 2:00 PM CDT Appointment [facility]iology Services 1 [place] [address] Angelito Alegria APRN, PATTERNMAKER PLASTER AND PLASTIC #[address] [address] Discharge Disposition: Discharged to home or Selfcare 11/19/2024 2:00 PM CDT [facility] Visit [facility] #2 [place] [address] Annel Rod MD #[address] [address] documented as of this encounter Visit Diagnoses Not on filedocumented in this encounter Additional Health Concerns Infection Onset Date Last Indicated Resolved Time COVID - 19 08/01/2024 08/01/2024 08/01/2024 3:20 PM CDT Assessment Noted Time PHQ-9 Depression Total Score: 0 07/21/19 21 3:00 PM CDT documented as of this encounter Care Teams Stand In Relationship Specialty Start Date End Date Justen Gale MD #[address] [address] PCP - General Family Medicine 10/17/17 David Roberts APRN, PATTERNMAKER PLASTER AND PLASTIC #2 [place] [address] Nurse Practitioner Advanced Practice Nurse 01/31/22 Annel Rod MD #[address] [address] Consulting Physician Endocrinology 07/01/22 documented as of this encounter
--- OUTSIDE RECORDS SUMMARY | 2024-11-07 15:40 | XMS_ITS | Encounter Summary ---
Author Organization [facility] Address [address] [place] [address] Phone Care Team Providers Care Log Driver Name Role Phone Lavonne Hathaway MD Primary Care Provider [phone] Liu Jerez MD Unavailable [phone] Albert Corbin MD Unavailable [phone] Justen Gale MD Primary Care Provider [phone] Lavonne Hathaway MD Primary Care Provider + [phone] Justen Gale MD Primary Care Provider [phone] Khris Arthur MD Unavailable [phone] Ko Melendez MD Unavailable [phone] John Paul Moyer MD Unavailable Annel Rod MD Unavailable Anali MARSHALL MD, Carlos M. Unavailable [phone] Encounter Details Date Type Department Care Team ([facility] Contact Info) Description 05/15/2017 Orders Only [facility] Scanning, Provider Social History Tobacco Use Types Packs/Day Years Used Date Smoking Tobacco: Former Alcohol Use Standard Drinks/Week Comments No 0 (1 standard drink = 0.6 oz pur e alcohol) Comments Unknown Sex and Gender Information Value Date Recorded Sex Assigned at Not on file Legal Sex Female 12:24 AM PLANNER SCHEDULER Gender Identity Not on file Sexual [...] COVID: Recovered 02/10/2022 02/10/2022 06/10/2022 3:05 AM PLANNER SCHEDULER Exposure, COVID-19 Comment:Added automatically based on COVID19 lab answers indicating exposure risk 02/11/2022 02/11/2022 02/15/2022 9:06 AM C DT COVID: Suspected 05/14/2022 05/14/2022 05/14/2022 10:41 AM PLANNER SCHEDULER COVID: Suspected 06/07/2022 06/07/2022 06/07/2022 12:28 PM PLANNER SCHEDULER COVID: Suspected 06/21/2022 06/21/2022 06/21/2022 2:12 AM PLANNER SCHEDULER COVID: Suspected 10/05/2022 10/05/2022 10/05/2022 7:40 PM CDT COVID: Suspected 01/04/2024 01/04/2024 01/04/2024 10:30 PM CDT COVID: Suspected 02/14/2024 02/14/2024 02/15/2024 12:36 AM CDT COVID: Suspected 07/01/2024 07/01/2024 07/01/2024 2:53 PM CDT COVID: Suspected 07/01/2024 07/01/2024 07/02/2024 3:05 AM CDT documented as of this encounter Care Teams Log Driver Relationship Specialty Start Date End Date Lavonne Hathaway MD [address] [place] [address] [place] [address] PCP - General 08/16/16 08/17/17 Justen Gale MD [address] [place] [address] [address] PCP - General 08/18/17 08/22/17 Lavonne Hathaway MD [address] [place] [address] [place] [address] PCP - General Family Medicine 08/23/17 10/08/17 Justen Gale MD 2 [facility] [place] [address] [address] PCP - General 10/09/17 Liu Jerez MD [address] [place] [address] [place] [address] Consulting Physician Gastroenterology 07/28/17 [place] [address] [facility] [address] [place] [address] Consulting Physician Pulmonary Disease 08/03/17 Khris Arthur MD [address] [facility] [address] [place] [address] Medical Oncologist/Streetcar Operator Medical Oncology 10/23/17 [place] [address] [facility] [address] [place] [address] Surgeon Orthopedic Surgery 10/23/17 [place] [address] [facility] [address] [place] [address] Consulting Physician Pain Management 10/23/17 [place] [address] [facility] [address] [place] [address] Referring Physician General Surgery 01/26/18 [place] [address] [facility] [address] [place] [address] Consulting Physician Neurology 01/26/18 documented as of this encounter
--- OUTSIDE RECORDS SUMMARY | 2024-11-07 15:40 | XMS_ITS | Encounter Summary ---
Author Organization [facility] Address [address] [place] [address] Phone Care Team Providers Care Structural Analyst Name Role Phone Justen Gale MD Primary Care Provider David Roberts APRN, DECOMMISSIONING WELL SITE MANAGER Unavailable Annel Rod MD Unavailable Reason for Visit * Reason Comments Medication Refill Encounter Details Date Type Department Care Team (Late st Contact Info) Description 10/24/2022 [facility]ill [facility] #2 [place] [address] Pili Elkins APRN, DECOMMISSIONING WELL SITE MANAGER #[address] [address] Medication Refill Social History [...] 2:00 PM CDT Appointment [facility] Cardiology Services 1 [place] [address] Angelito Alegria, RESPIRATORY SUPERVISOR, DECOMMISSIONING WELL SITE MANAGER #[address] [address] Discharge Disposition: Discharged to home or Selfcare 11/19/2024 2:00 PM CDT Office Visit [facility] Endocrin[facility] #2 [place] [address] Annel Rod MD #[address] [address] documented as of this encounter Visit Diagnoses Diagnosis Essential hypertension Unspecified essential hypertension documented in this encounter Additional Health Concerns Infection Onset Date Last Indicated Resolved Time COVID - 19 08/01/2024 08/01/2024 08/01/2024 3:20 PM CDT Assessment Noted Time PHQ-9 Depression Total Score: 0 09/17/19 23 11:00 AM CDT documented as of this encounter Care Teams Structural Analyst Relationship Specialty Start Date End Date Justen Gale MD #[address] [address] PCP - General Family Medicine 10/17/17 David Roberts RESPIRATORY SUPERVISOR, DECOMMISSIONING WELL SITE MANAGER #2 [place] [address] Nurse Practitioner Advanced Practice Nurse 01/31/22 Annel Rod MD #[address] [address] Consulting Physician Endocrinology 07/01/22 documented as of this encounter
--- OUTSIDE RECORDS SUMMARY | 2024-11-07 15:40 | XMS_ITS | Encounter Summary ---
Author Organization [facility] Address [address] [place] [address] Phone Care Team Providers Care Floor Worker Transfer [place] Name Role Phone Justen Gale MD Primary Care Provider [phone] David Roberts APRN, HEALTH DIAGNOSTICS TEACHER Unavailable Annel Rod MD Unavailable Reason for Visit * Reason Comments Medication Refill Encounter Details Date Type Department Care Team (Late st Contact Info) Description 08/07/2023 Refill [facility] Endocr[facility]ology - [place] #2 [place] [address] Annel Rod MD #[address] [address] Medication Refill Social History Tobacco [...] PM CDT Appointment [facility] Cardiology Services 1 [place] [address] Angelito Alegria APRN, HEALTH DIAGNOSTICS TEACHER #[address] [address] Discharge Disposition: Discharged to home or Selfcare 11/19/2024 2:00 PM CDT Office Visit [facility] #2 [place] [address] Annel Rod MD #[address] [address] documented as of this encounter Visit Diagnoses Not on filedocumented in this encounter Additional Health Concerns Infection Onset Date Last Indicated Resolved Time COVID - 19 08/01/2024 08/01/2024 08/01/2024 3:20 PM CDT Assessment Noted Time PHQ-9 Depression Total Score: 8 01/18/20 2:24 PM CDT documented as of this encounter Care Teams Floor Worker Transfer [place] Relationship Specialty Start Date End Date Justen Gale MD #[address] [place] [address] PCP - General Family Medicine 10/17/17 David Roberts APRN, HEALTH DIAGNOSTICS TEACHER #2 [place] [address] Nurse Practitioner Advanced Practice Nurse 01/31/22 Annel Rod MD #[address] [address] Consulting Physician Endocrinology 07/01/22 documented as of this encounter
--- OUTSIDE RECORDS SUMMARY | 2024-11-07 15:40 | XMS_ITS | Encounter Summary ---
Author Organization [facility] Address [address] [place] [address] Phone Care Team Providers Care Qa Test Analyst Name Role Phone Justen Gale MD Primary Care Provider [phone] David Roberts APRN, GRAB SETTER Unavailable Annel Rod MD Unavailable Reason for Visit * Reason Onset Date Comments Pain 09/23/2024 Encounter Details Date Type Department Care Team (Late st Contact Info) Description 09/23/2024 Telephone [facility] [address] [place] [address] Justen Gale MD #[address] [address] Pain Social History Tobacco Use Types Packs/Day Years Used Date Smoking Tobacco: Never Smokeless Tobacco: Never Alcohol Use Standard Drinks/Week Comments No 0 (1 standard drink = 0.6 oz pur e alcohol) [facility] Utilities Answer Date Recorded In the past 12 months has [employer] electric, gas, oil, or water company threatened [...] do you attend chur or orthodox services? More than 4 times per [...] Total Score - Questions 1-9 0 07/23 [facility] - Occupational Stress [...] any time in the past 12 m [facility], were you homeless or living [...] - patient has RA Outcome: Transfer to manager mission queue Reason: Caller denied all higher acuity questions The caller accepted this outcome. Caller Denied: * Chest pain * Headache * Eye pain * Abdominal pain * Genital pain documented in this encounter Plan of Treatment Upcoming Encounters Date Type Department Care Team (Late st Contact Info) Description 11/13/2024 2:00 PM CDT Appointment [facility] Cardiology Services 1 [place] [address] Angelito Alegria APRN, GRAB SETTER #2 [facility] [address] [place] [address] Discharge Disposition: Discharged to home or Selfcare 11/19/2024 2:00 PM CDT Office Visit [facility] End[facility]ology - [place] #2 [place] [address] Annel Rod MD #2 [facility] [address] [place] [address] documented as of this encounter Visit Diagnoses Not on filedocumented in this encounter Additional Health Concerns Assessment Noted Time PHQ-9 Depression Total Score: 0 08/02/19 25 1:09 PM CDT documented as of this encounter Care Teams Qa Test Analyst Relationship Specialty Start Date End Date Justen Gale MD #2 [facility] [address] [place] [address] PCP - General Family Medicine 10/17/17 David Roberts APRN, GRAB SETTER #2 [place] [address] Nurse Practitioner Advanced Practice Nurse 01/31/22 Annel Rod MD #2 [facility] [address] [place] [address] Consulting Physician Endocrinology 07/01/22 documented as of this encounter
--- OUTSIDE RECORDS SUMMARY | 2024-11-07 15:40 | XMS_ITS | Encounter Summary ---
Author Organization [facility] Address [address] [place] [address] Phone Care Team Providers Care Spring Layer Name Role Phone Justen Gale MD Primary Care Provider David Roberts APRN, SPECIAL NEEDS TEACHER Unavailable [phone] Annel Rod MD Unavailable Reason for Visit * Reason Comments Medication Refill Encounter Details Date Type Department Care Team (Late st Contact Info) Description 04/13/2023 Refill [facility] - Endocr[facility]ology - [place] #2 [place] [address] Annel Rod MD #[address] [address] Medication Refill Social History [...] Jennifer Wang RN - 04/14/2023 10:00 AM STEEL DETAILER Requested Prescriptions Pending Prescriptions Disp Refills ??? Continuous Blood Gluc Sensor (FreeStyle Eileen 2 Sensor) Misc [Pharmacy Med Name: FREESTYLE EILEEN 2 SENSOR] 6 Each 1 Sig: APPLY 1 SENSOR AND WEAR FOR 14 DAYS TO CHECK BLOOD SUGAR Next appt: 05/30/2023 L DETAILER documented in this encounter Plan of Treatment Upcoming Encounters Date Type Department Care Team (Late st Contact Info) Description 11/13/2024 2:00 PM CDT Appointment [facility] Cardiology Services 1 [place] [address] Angelito Alegria APRN, SPECIAL NEEDS TEACHER #2 [facility] [address] [place] [address] Discharge Disposition: Discharged to home or Selfcare 11/19/2024 2:00 PM CDT Office Visit [facility] End[facility] #2 [place] [address] Annel Rod MD #2 [facility] [address] [place] [address] documented as of this encounter Visit Diagnoses Not on filedocumented in this encounter Additional Health Concerns Infection Onset Date Last Indicated Resolved Time COVID - 19 08/01/2024 08/01/2024 08/01/2024 3:20 PM CDT Assessment Noted Time PHQ-9 Depression Total Score: 8 01/18/20 23 2:24 PM CDT documented as of this encounter Care Teams Spring Layer Relationship Specialty Start Date End Date Justen Gale MD #2 [facility] [address] [place] [address] PCP - General Family Medicine 10/17/17 David Roberts APRN, SPECIAL NEEDS TEACHER #2 [place] [address] Nurse Practitioner Advanced Practice Nurse 01/31/22 Annel Rod MD #[address] [address] Consulting Physician Endocrinology 07/01/22 documented as of this encounter
--- OUTSIDE RECORDS SUMMARY | 2024-11-07 15:40 | XMS_ITS | Encounter Summary ---
Author Organization [facility] Address [address] [place] [address] Phone Care Team Providers Care Information Security Systems Instructor Name Role Phone Justen Gale MD Primary Care Provider [phone] David Roberts APRN, WOOD AND HARDWARE OUTFITTER Unavailable Annel Rod MD Unavailable Reason for Visit * Reason Onset Date Comments Breathing Problem 08/07/2024 Muscle Pain 08/07/2024 Encounter Details Date Type Department Care Team (Late st Contact Info) Description 08/07/2024 Nurse Triage [facility] [address] [place] [address] Justen Gale MD #[address] [address] Breathing Problem; Muscle Pain Social History Tobacco Use Types Packs/Day Years Used Date Smoking Tobacco: Never Smokeless Tobacco: Never Alcohol Use Standard Drinks/Week Comments No 0 (1 standard drink = 0.6 oz pur e alcohol) [facility] Utilities Answer Date Recorded In the [...] any clubs o r organizations such as jew groups, unions, fraternal or athletic groups, or [...] Total Score - Questions 1-9 0 07/23 [facility] - Occupational [...] in a senior care (including now)? No 08/06/2024 Education Answer Date [...] this was discussed with the front office spec and provider was to be notified in [...] Encouraged caller to bring cell phone and ice puller to contact EMS 911 if symptoms [...] (e.g., disoriented, slurred speech) Protocols used: Breathing [id number] * Telephone Encounter - Neha Tomlinson - 08/07/2024 1:30 PM CDT Symptoms: Altered Mental Status, Body Aches, Breathing Trouble Outcome: Warm transfer to an emergent RN NOW! Reason: Trouble walking The caller accepted this outcome. documented in this encounter Plan of Treatment Upcoming Encounters Date Type Department Care Team (Late st Contact Info) Description 11/13/2024 2:00 PM CDT Appointment [facility] Cardiology Services 1 [place] [address] Angelito Alegria APRN, NETTA #2 [facility] [address] [place] [address] Discharge Disposition: Discharged to home or Selfcare 11/19/2024 2:00 PM CDT Office Visit [facility] Endocr[facility]ology [facility] #2 [place] [address] Annel Rod MD #2 [facility] [address] [place] [address] documented as of this encounter Visit Diagnoses Not on filedocumented in this encounter Additional Health Concerns Assessment Noted Time PHQ-9 Depression Total Score: 0 08/02/19 25 1:09 PM CDT documented as of this encounter Care Teams Information Security Systems Instructor Relationship Specialty Start Date End Date Justen Gale MD #2 [facility] [address] [place] [address] PCP - General Family Medicine 10/17/17 David Roberts APRN, NETTA #2 [place] [address] Nurse Practitioner Advanced Practice Nurse 01/31/22 Annel Rod MD #2 [facility] [address] [place] [address] Consulting Physician Endocrinology 07/01/22 documented as of this encounter
--- OUTSIDE RECORDS SUMMARY | 2024-11-07 15:40 | XMS_ITS | Encounter Summary ---
Author Organization [facility] Address [address] [place] [address] Phone Care Team Providers Care Business Continuity Planning Director Name Role Phone Justen Gale MD Primary Care Provider [phone] David Roberts APRN, BLENDING TECHNICIAN Unavailable Annel Rod MD Unavailable Reason for Visit * Reason Comments Medication Refill Encounter Details Date Type Department Care Team (Late st Contact Info) Description 07/06/2023 Refill [facility] - Family [facility] #2 [place] [address] Justen Gale MD #[address] [address] Medication Refill Social History Tobacco Use Types [...] Dept 06/27/23 Office Visit Justen Gale MD [facility] [place] 01/17/23 Office Visit Catrina Quiñonez MD [facility] [place] Showing recent visits within [...] Info) Description 11/13/2024 2:00 PM CDT [facility]ment [facility] 1 [place] [address] Angelito Alegria, AUDIO DIRECTOR, BLENDING TECHNICIAN #[address] [address] Discharge Disposition: Discharged to home or Selfcare 11/19/2024 2:00 PM CDT Office Visit [facility] - Endocrinology - [place] #2 [place] [address] Annel Rod MD #2 [facility] [address] [place] [address] documented as of this encounter Visit Diagnoses Not on filedocumented in this encounter Additional Health Concerns Infection Onset Date Last Indicated Resolved Time COVID - 19 08/01/2024 08/01/2024 08/01/2024 3:20 PM CDT Assessment Noted Time PHQ-9 Depression Total Score: 8 01/18/20 23 2:24 PM CDT documented as of this encounter Care Teams Business Continuity Planning Director Relationship Specialty Start Date End Date Justen Gale MD #2 [facility] [address] [place] [address] PCP - General Family Medicine 10/17/17 David Roberts APRN, BLENDING TECHNICIAN #2 [place] [address] Nurse Practitioner Advanced Practice Nurse 01/31/22 Annel Rod MD #[address] [address] Consulting Physician Endocrinology 07/01/22 documented as of this encounter
--- OUTSIDE RECORDS SUMMARY | 2024-11-07 15:40 | XMS_ITS | Encounter Summary ---
Author Organization [facility] Address [address] [place] [address] Phone Care Team Providers Care Marketing Program Manager Name Role Phone Justen Gale MD Primary Care Provider David Roberts APRN, PEARL FISHERMAN Unavailable Annel Rod MD Unavailable Reason for Visit * Reason Comments Medication Refill Encounter Details Date Type Department Care Team (Late st Contact Info) Description 08/30/2022 Refill [facility] - Family Medicine [facility] #2 [place] [address] Justen Gale MD #[address] [address] Medication Refill Social History Tobacco Use Types [...] [place] 05/02/22 Office Visit Justen Gale MD [facility] [place] 03/03/22 Office Visit Pili Elkins APRN, NETTA [facility] [place] 01/03/22 Office Visit Dannielle Berg PAC [facility] [place] 12/07/21 Office Visit Pili Elkins APRN, NETTA [facility] [place] 11/09/21 Office Visit Pili Elkins APRN, NETTA [facility] [place] 10/08/21 Office Visit Angelito Alegria APRN, NETTA [facility] [place] 08/30/21 Office Visit [facility] [place] Showing recent visits within past 365 days and meeting all other requirements Future Appointments No visits were found meeting these conditions. Showing future appointments within next 90 days and meeting all other requirements documented in this encounter Plan of Treatment Upcoming Encounters Date Type Department Care Team (Late st Contact Info) Description 11/13/2024 2:00 PM CDT Appointment [facility] Cardiology Services 1 [place] [address] Angelito Algeria APRN, PEARL FISHERMAN #[address] [address] Discharge Disposition: Discharged to home or Selfcare 11/19/2024 2:00 PM CDT Office Visit [facility] - Endocr[facility]ology - [place] #2 [place] [address] Annel Rod MD #[address] [address] documented as of this encounter Visit Diagnoses Not on filedocumented in this encounter Additional Health Concerns Infection Onset Date Last Indicated Resolved Time COVID - 19 08/01/2024 08/01/2024 08/01/2024 3:20 PM CDT Assessment Noted Time PHQ-9 Depression Total Score: 0 07/21/19 3:00 PM CDT documented as of this encounter Care Teams Marketing Program Manager Relationship Specialty Start Date End Date Justen Gale MD #[address] [address] PCP - General Family Medicine 10/17/17 David Roberts APRN, PEARL FISHERMAN #2 [place] [address] Nurse Practitioner Advanced Practice Nurse 01/31/22 Annel Rod MD #[address] [address] Consulting Physician Endocrinology 07/01/22 documented as of this encounter
--- OUTSIDE RECORDS SUMMARY | 2024-11-07 15:40 | XMS_ITS ---
Author Organization [facility] Address [address] [facility] [place] [address] Care Team Providers Care Informatica Mdm Developer Name Role Phone Justen Gale MD Primary Care Provider Active Problems Problem Noted Date Diagnosed Date [...]
--- OUTSIDE RECORDS SUMMARY | 2024-11-07 15:40 | XMS_ITS | Encounter Summary ---
Author Organization [facility] Address [address] [place] [address] Phone Care Team Providers Care Sas Bi Developer Name Role Phone Justen Gale MD Primary Care Provider David Roberts APRN, FUEL HANDLER Unavailable Annel Rod MD Unavailable Reason for Visit * Reason Comments Medication Refill Encounter Details Date Type Department Care Team (Late st Contact Info) Description 03/05/2023 Refill [facility] - Family Medicine [facility] #2 [place] [address] Pili Elkins APRN, FUEL HANDLER #[address] [address] Medication Refill Social History Tobacco [...] discontinued on 10/19/2022 by Justen Gale MD 'S COOK documented in this encounter Plan of Treatment Upcoming Encounters Date Type Department Care Team (Late st Contact Info) Description 11/13/2024 2:00 PM CDT Appointment [facility] Cardiology Services 1 [place] [address] Angelito Alegria APRN, FUEL HANDLER #2 [facility] [address] [place] [address] Discharge Disposition: Discharged to home or Selfcare 11/19/2024 2:00 PM CDT Office Visit [facility] - Endocr[facility]ology - [place] #2 [place] [address] Annel Rod MD #2 [facility] [address] [place] [address] documented as of this encounter Visit Diagnoses Diagnosis Essential hypertension Unspecified essential hypertension documented in this encounter Additional Health Concerns Infection Onset Date Last Indicated Resolved Time COVID - 19 08/01/2024 08/01/2024 08/01/2024 3:20 PM CDT Assessment Noted Time PHQ-9 Depression Total Score: 8 01/18/20 2:24 PM CDT documented as of this encounter Care Teams Sas Bi Developer Relationship Specialty Start Date End Date Justen Gale MD #2 [facility] [address] [place] [address] PCP - General Family Medicine 10/17/17 David Roberts APRN, NETTA #2 [place] [address] Nurse Practitioner Advanced Practice Nurse 01/31/22 Annel Rod MD #2 [facility] [address] [place] [address] Consulting Physician Endocrinology 07/01/22 documented as of this encounter
--- OUTSIDE RECORDS SUMMARY | 2024-11-07 15:40 | XMS_ITS | Clinical Summary ---
Author Organization [facility] Address [place] [address] Care Team Providers Care Auto Body Worker Name Role Phone Meena Bansal MD Unavailable [phone] Justen Gale MD Primary Care Provider [phone] Allergies Active Allergy Reactions Criticality Noted Date [...] reflux disease 09/05/2020 Malignant tumor of breast ([facility]/HCC [facility]) 08/22 Knee pain 09/05/2020 Other [...] 03/18/2018 Assessment & Plan (03/18/2018 2:55 AM DECAL TRANSFERRER): Acute, patient reported as epigastric pain however may be atypical presentation. Troponins negative x2. Also in differential is GERD, PUD - Admit to observation -Follow-up troponins -Monitor vitals -N.p.o. at midnight - Stress echo in a.m. - Consider cardiology consult based on results of stress test -Begin Protonix Epigastric pain 03/18/2018 Assessment & Plan (03/18/2018 5:39 AM DECAL TRANSFERRER): Acute, non radiating, worsens with lying down, [...] Speech impairment 01/30/2018 CVA (cerebral vascular accident) ([facility] HHS/ C) 01/24/2018 Neck pain on right side 12/01/2017 Anxiety and depression 11/12/2017 Chronic anticoagulation 11/09/2017 Constipation 11/09/2017 Uncontrolled type 2 diabetes mellitus with hyperglycemia, with long-term current use of insulin ([facility]) 11/06/2017 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 10/23/2017 Lumbosacral [...] upper- 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 ([facility] HHS/HCC) 10/17/2017 Assessment & Plan (08/31/2018 12:24 AM CDT): S/p masectomy. -continue exemestane Acute deep vein thrombosis ( DVT) of proximal vein of right lower extremity ([facility]) 10/17/2017 Dysuria 10/17/2017 Hyperthyroidism 10/17/2017 Cancer of overlapping sites of left female breast ([facility]) 10/13/2017 Syncope 09/29/2017 High blood pressure 08/22/2017 Overview (09/05/2020): Last Assessment & Plan: On lisinopril Last Assessment & Plan: On lisinopril Assessment & Plan (08/30/2018 9:57 PM CDT): Chronic. Controlled. -continue home medications Assessment & Plan (03/18/2018 2:51 AM DECAL TRANSFERRER): Chronic, BPs currently 127/78 - To new home meds Morbid obesity with BMI of 50.0-59.9, adult 04/2017 Sepsis ([facility]) 08/22/2017 Type 2 diabetes mellitus ([facility]) 08/22 Overview (09/05/2020): Last Assessment & Plan: Hold janument. Start on SSI and accucheks Assessment & Plan (08/30/2018 10:01 PM CDT): Chronic. Controlled. -continue home insulin regimen of lantus 50 units q am -lispro 20 units with breakfast and lunch. 22 units with dinner. Assessment & Plan (03/18/2018 2:53 AM DECAL TRANSFERRER): Chronic, patient reports medical compliance with 50 units of Lantus daily and 15 units of Humalog before meals. No recent HbA1c - Monitor POC glucose -[place] home regimen - Consider sliding scale insulin -Follow-up HbA1c Bronchitis 08/20/2017 LUL (obstructive sleep apnea) 08/01/2017 Assessment & Plan (03/18/2018 2:54 AM DECAL TRANSFERRER): Chronic, on CPAP at home - Continue home CPAP History of DVT (deep vein thrombosis) 08/01/2017 Assessment & Plan (03/18/2018 2:54 AM DECAL TRANSFERRER): Chronic - Continue home Xarelto Chest pressure 08/01/2017 Diet-controlled diabetes mellitus ([facility] HHS/H CC) 08/01/2017 History of pulmonary embolism 08/01/2017 Hyponatremia 08/01/2017 Positive blood culture 08/01/2017 Acute pharyngitis 07/27/2017 Generalized weakness 07/27/2017 Nausea and vomiting 07/26/2017 Overview (09/05/2020): Overview: Overview: Added automatically from request for surgery [id number] Overview: Added automatically from request for surgery [id number] Added automatically from request for surgery [id number] Neuropathy 07/05/2017 History of breast cancer 02/06/2017 Pulmonary embolism ([facility]) 08/09/2016 Overview (09/05/2020): Last Assessment [...] syndrome Assessment & Plan (03/18/2018 2:54 AM DECAL TRANSFERRER): Chronic -Continue home ropinirole Pain of lower extremity 03/12/2013 Overview (09/05/2020): Leg pain Encounters Date Type Department Care Team Description 08/12/2024 4:41 PM CDT - 08/12/2024 7:52 PM CDT Emergency [facility] [place] [address] Marvin Brewer MD Urinary Symptoms Discharge Disposition: Home or Self Care (Routine Discharge) 08/12/2024 Travel from Last 3 Months Immunizations Immunization Administration Dates Next Due Influenza (Generic) 01/24/2018,,01/23/2016,03/07/2014,2013,05/07/2013,05/07/2013 Influenza Adult (Generic) 02/14/2017,02/11/2015 Tdap (Generic) 02/23/2016 [...] 0.6 oz pur e alcohol) [facility] Utilities Answer Date Recorded In the past 12 months has e [employer], gas, oil, or water [employer] threatened to shut off services in your [...] in the past 12 m [facility], were you homeless or living in a senior living (including now)? No 10/13/2023 Comments No Sex and Gender Information Value Date Recorded Sex Assigned at Female 09/06/2020 12:50 AM CDT Legal Sex Female 10:47 AM CDT Gender Identity Female 09/06/2020 12:50 AM CDT Sexual Orientation Straight 03/18/2018 3: 01 AM DECAL TRANSFERRER Last Filed Vital Signs Vital Sign Reading [...] 4:17 PM CDT Height 154.9 cm (5' 1) 08/12/2024 4:17 PM CDT Body Mass Index [...] Annual Medicare Wellness Visit 2021 COVID-19 Vaccine ( season) 2023 06/29/2020 ASCVD LDL 10/13/2024 10/14/2023, 11/02/2016 Lipid Panel 10/13/2024 10/14/2023, 03/26, 09/28/2017, Additional [...] CDT) 08/12/2024 5:13 PM CDT Narrative [facility] - 08/12/2024 10:[address] 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 [address] [place] [address] Test Date: 2024-08-12 Pat Name: MOHSEN SALAZAR Department: 41 Room: EXAM25 Gender: Female Fork Repairer: [id number] : 1955 Requested By: MARVIN BREWER Order Number: [id number] Reading MD: Meena Bansal Measurements Intervals [place] Rate: 82 P: -76 [place]: 99 QRS: 30 QRSD: 86 T: 65 QT: 403 QTc: 472 Interpretive Statements JUNCTIONAL RHYTHM ABNORMAL RHYTHM ECG Compared to ECG 10/13/2023 01:02:35 Junctional rhythm now present Sinus rhythm no longer present Incomplete right bundle-branch block no longer present Myocardial infarct finding no longer present us Marvin Brewer MD ECG ORDERABLES Final Result [facility] RAD * (ABNORMAL) COMPREHENSIVE METABOLIC PANEL (08/12/2024 4:49 PM CDT) GLUCOSE 293(H) 70 - 99 MG/DL 08/12/2024 5:33 PM CDT [facility] BUN 17 7 - 18 MG/DL 08/12/2024 5:33 PM CDT [facility] CREATININE S/P/B 0.84 0.55 - 1.02 MG/DL 08/12/2024 5:33 PM CDT [facility] SODIUM S/P/B 137 136 - 145 MMOL/L 08/12/2024 5:33 PM CDT [facility] POTASSIUM S/P/B 4.0 3.5 - 5.1 MMOL/L 08/12/2024 5:33 PM CDT [facility] CHLORIDE S/P/B 103 97 - 115 MMOL/L 08/12/2024 5:33 PM CDT [facility] CO2 27.7 21 - 32 MMOL/L 08/12/2024 5:33 PM CDT [facility] CALCIUM S/P/B 9.2 8.5 - 10.1 MG/DL 08/12/2024 5:33 PM CDT [facility] BILIRUBIN TOTAL S/P/B 0.4 0.2 - 1.2 MG/DL 08/12/2024 5:33 PM [facility] Comment: THIS ASSAY IS NOT RECOMMENDED FOR PATIENTS UNDERGOING TREATMENT WITH ELTROMBOPAG DUE TO THE POTENTIAL FOR FALSELY ELEVATED RESULTS. TOTAL PROTEIN S/P/B 8.1 6.4 - 8.2 G/DL 08/12/2024 5:33 PM T [facility] ALBUMIN S/P/B 3.2(L) 3.4 - 5.0 G/DL 08/12/2024 5:33 PM T [facility] AST 20 15 - 37 U/L 08/12/2024 5:33 PM [facility] ALT 29 14 - 55 U/L 08/12/2024 5:33 PM T [facility] ALKALINE PHOSPHATASE S/P/B 83 50 - 136 U/L 08/12/2024 5:33 PM T [facility] ANION GAP 6.3 2 - 10 MMOL/L 08/12/2024 5:33 PM [facility] BUN CREATININE RATIO 20.3 6 - 26 08/12/2024 5:33 PM [facility] A/G RATIO 0.7(L) 1.0 - 2.0 RATIO 08/12/2024 5:33 PM [facility] GFR ESTIMATE 76(L) >90 ML/MIN/1.7 3 M2 08/12/2024 5:33 PM [facility] Comment: NOTE: eGFR is not calculated for patients <18 years of age or gender unknown. This is an estimated GFR calculation using the new CKD EPI creatinine equation without race and so does not require a correction factor for race. This estimated GFR should not be used for calculating drug doses. 08/12/2024 4:49 PM CDT [facility] Final Result [facility] [address] [place] [address], [place] [phone] * (ABNORMAL) CBC W/DIFF AUTOMATED (08/12/2024 4:49 PM CDT) Pathologist [facility] WBC 12.17(H) 4.5 - 11.0 x10'3/uL 08/12/2024 5:00 PM CDT [facility] RBC 4.58 4.20 - 5.40 x10'6/uL 08/12/2024 5:00 PM CDT [facility] HGB 13.3 12.0 - 16.0 G/DL 08/12/2024 5:00 PM CDT [facility] HCT 42.6 38.0 - 48.0 % 08/12/2024 5:00 PM CDT [facility] MCV 93.0 81.0 - 99.0 FL 08/12/2024 5:00 PM CDT [facility] MCH 29.0 27.0 - 31.0 PG 08/12/2024 5:00 PM CDT [facility] MCHC 31.2(L) 32.0 - 36.0 G/DL 08/12/2024 5:00 PM CDT [facility] RDW 13.3 11.5 - 14.5 % 08/12/2024 5:00 PM CDT [facility] PLT 290 130 - 400 x10'3/uL 08/12/2024 5:00 PM CDT [facility] MPV 9.8 9.3 - 12.2 FL 08/12/2024 5:00 PM CDT [facility] DIFFERENTIAL TYPE AUTOMATED DIFFERENTIAL 08/12/2024 5:00 PM CDT [facility] NEUTROPHILS % 67.7 % 08/12/2024 5:00 PM CDT [facility] LYMPHOCYTES % 21.2 % 08/12/2024 5:00 PM CDT [facility] MONOCYTES % 8.0 % 08/12/2024 5:00 PM CDT [facility] EOSINOPHILS 2.3 % 08/12/2024 5:00 PM CDT [facility] BASOPHILS 0.3 % 08/12/2024 5:00 PM CDT [facility] IMMATURE GRANS % 0.5 % 08/13/19 5:00 PM CDT [facility] ABS. NEUTROPHILS 8.24(H) 1.80 - 7.70 x10'3/uL 08/12/2024 5:00 PM CDT [facility] ABS. LYMPHOCYTES 2.58 1.00 - 4.80 x10'3/uL 08/12/2024 5:00 PM CDT [facility] ABS. MONOCYTES 0.97(H) 0.24 - 0.86 x10'3/uL 08/12/2024 5:00 PM CDT [facility] ABS. EOSINOPHILS 0.28 0.04 - 0.36 x10'3/uL 08/12/2024 5:00 PM CDT [facility] ABS. BASOPHILS 0.04 0.01 - 0.08 x10'3/uL 08/12/2024 5:00 PM CDT [facility] ABS. IMMATURE GRANULOCYTES 0.06 0.00 - 0.49 x10'3/uL 08/12/2024 5:00 PM CDT [facility] 08/12/2024 4:49 PM CDT us [facility] Final Result [facility] [address] [place] [address], [place] [phone] * (ABNORMAL) URINALYSIS (08/12/2024 4:48 PM CDT) SPECIMEN TYPE URINE CLEAN CATCH 08/12/2024 4:48 PM CDT [facility] COLOR (U) LIGHT YELLOW 08/12/2024 5:07 PM CDT [facility] TRANSPARENCY CLEAR 08/12/2024 5:07 PM CDT [facility] SPECIFIC GRAVITY (U) 1.016 1.001 - 1.030 08/12/2024 5:07 PM CDT [facility] U PH 6.0 5.0 - 9.0 08/12/2024 5:07 PM CDT [facility] LEUKOCYTES (U) NEGATIVE NEGATIVE 08/12/2024 5:07 PM CDT [facility] NITRITES NEGATIVE NEGATIVE 08/12/2024 5:07 PM CDT [facility] PROTEIN RANDOM (U) NEGATIVE <30 MG/DL 08/12/2024 5:07 PM CDT [facility] GLUCOSE (U) 1000(A) NORMAL MG/DL 08/12/2024 5:07 PM CDT [facility] KETONES MG/DL (U) NEGATIVE NEGATIVE MG/DL 08/12/2024 5:07 PM CDT [facility] UROBILINOGEN NORMAL NORMAL MG/DL 08/12/2024 5:07 PM CDT [facility] BILIRUBIN (U) NEGATIVE NEGATIVE MG/DL 08/12/2024 5:07 PM CDT [facility] BLOOD (U) NEGATIVE NEGATIVE 08/12/2024 5:07 PM CDT [facility] URINE SPECIMEN OBTAINED BY CLEAN CATCH PROCEDURE / Unknown 08/12/2024 4:48 PM CDT us [facility] URINE ORDERABLES Final Result Performing Organization Address City/[facility]/ZIP Co de Phone Number [facility] [address] [place] [address], * (ABNORMAL) HEMOGLOBIN, GLYCOSYLATED (10/14/2023 3:40 AM CDT) HGB A1C 8.0(H) <5.7 % 10/14/2023 5:50 AM CDT [facility] Comment: ADA GUIDELINES 2010 5.7 TO 6.4% INCREASED RISK OF DIABETES > OR = 6.5% CONSISTENT WITH DIABETES ESTIMATED AVG GLUCOSE 183 mg/dL 10/14/2023 5:50 AM CDT [facility] 10/14/2023 3:40 AM CDT us Peggy Bland MD LABORATORY Final Result Performing Organization Address [facility]/ZIP Co de Phone Number [facility] [address] [place] [address], * LIPID PANEL (10/14/2023 3:40 AM CDT) CHOLESTEROL 164 <200 MG/DL 10/14/2023 4:31 AM CDT [facility] TRIGLYCERIDES 114 <150 MG/DL 10/14/2023 4:31 AM CDT [facility] HDL 46 >40.0 MG/DL 10/14/2023 4:31 AM CDT [facility] LDL (CALCULATED) 95 <100 MG/DL 10/14/19 4:31 AM CDT [facility] NON HDL CHOLESTEROL 118 <130 MG/DL 10/13 4:31 AM CDT [facility] CHOL/HDL RATIO 3.6 0.0 - 4.5 10/14/2023 4:31 AM CDT [facility] VLDL CALCULATION 23 5 - 55 MG/DL 10/14/2023 4:31 AM CDT [facility] LIPID INTERPRETATION 10/14/2023 4:31 AM CDT [facility] Comment: NIH CONCENSUS REPORT RECOMMENDATIONS: ADULT CHILD LOW RISK: CHOLESTEROL <200 <170 TRIGLYCERIDE <150 --- HDL >=60 --- LDL <100 <110 BORDERLINE: CHOLESTEROL 200-239 170-199 TRIGLYCERIDE 150-199 --- HDL 40-59 --- LDL 100-159 110-129 HIGH RISK: CHOLESTEROL >=240 >=200 TRIGLYCERIDE >=200 --- HDL <40 --- LDL >=160 >=130 10/14/2023 3:40 AM CDT Peggy Bland MD LABORATORY Final Result [facility] [address] [place] [address], from Last 3 Months or Most Recently Relevant to Health Maintenance Insurance [facility] MEDICAID [facility] Advance Directives * Full Code (Latest [...] 2:42 AM 03/18/2018 4:50 PM Care Teams Auto Body Worker Relationship Specialty Start Date End Date Justen Gale MD [facility] [address] [place] [address] PCP - General FAMILY PRACTICE 08/20/17 Meena Bansal MD [address] [phone] [place] Passport Application Examiner CARDIOVASCULAR DISEASE 04/24/16
--- OUTSIDE RECORDS SUMMARY | 2024-11-07 15:40 | XMS_ITS | Encounter Summary ---
Author Organization [facility] Address [address] [place] [address] Phone Care Team Providers Care Skills Instructor Name Role Phone Justen Gale MD Primary Care Provider David Roberts APRN, OWNER SPA DIRECTOR Unavailable Annel Rod MD Unavailable Reason for Visit * Reason Comments Medication Refill Encounter Details Date Type Department Care Team (Late st Contact Info) Description 02/07/2023 Refill [facility] [address] [place] [address] Catrina Quiñonez MD [address] [place] [address] Medication Refill Social History Tobacco Use Types [...] 09/16/22 Office Visit Pili Elkins APRN, CNP [facility] 07/05/22 Office Visit Pili Elknis APRN, CNP [facility] 05/02/22 Office Visit Justen Gale MD [facility] 03/03/22 Office Visit Pili Elkins APRN, NETTA [facility] Showing recent visits within past 365 days and meeting all other requirements Future Appointments No visits were found meeting these conditions. Showing future appointments within next 90 days and meeting all other requirements documented in this encounter Plan of Treatment Upcoming Encounters Date Type Department Care Team (Late st Contact Info) Description 11/13/2024 2:00 PM CDT Appointment [facility] Cardiology Services [address] [place] [address] Angelito Alegria APRN, OWNER SPA DIRECTOR [address] [address] Discharge Disposition: Discharged to home or Selfcare 11/19/2024 2:00 PM CDT Office Visit [facility] [address] [place] [address] Annel Rod MD [address] [address] documented as of this encounter Visit Diagnoses Not on filedocumented in this encounter Additional Health Concerns Infection Onset Date Last Indicated Resolved Time COVID - 19 08/01/2024 08/01/2024 08/01/2024 3:20 PM CDT Assessment Noted Time PHQ-9 Depression Total Score: 8 01/18/20 2:24 PM CDT documented as of this encounter Care Teams Skills Instructor Relationship Specialty Start Date End Date Justen Gale MD [address] [address] PCP - General Family Medicine 10/17/17 David Roberts APRN, OWNER SPA DIRECTOR [address] [place] [address] Nurse Practitioner Advanced Practice Nurse 01/31/22 Annel Rod MD [address] [address] Consulting Physician Endocrinology 07/01/22 documented as of this encounter
--- OUTSIDE RECORDS SUMMARY | 2024-11-07 15:40 | XMS_ITS | Encounter Summary ---
Author Organization [facility] Address [address] [place] [address] Phone Care Team Providers Care Shredder/Granulator Operator Name Role Phone Justen Gale MD Primary Care Provider [phone] David Roberts APRN, BEHAVIORAL HEALTH CONSULTANT Unavailable Annel Rod MD Unavailable Reason for Visit * Reason Onset Date Comments Advice Only 11/07/2024 Fatigue 11/07/2024 Shortness of Breath 11/07/2024 Encounter Details Date Type Department Care Team (Late st Contact Info) Description 11/07/2024 Nurse Triage [facility] [address] [place] [address] Justen Gale MD [address] [address] Advice Only; Fatigue; Shortness of Breath Social History Tobacco Use Types Packs/Day Years Used Date Smoking Tobacco: Never Smokeless Tobacco: Never Alcohol Use Standard Drinks/Week Comments No 0 (1 standard drink = 0.6 oz pur e alcohol) [facility] Utilities Answer Date Recorded In the past 12 months has Maintenance Assistant electric, gas, oil, or water company threatened [...] Total Score - Questions 1-9 0 07/23 [facility] - [facility]ational Stress Questionnaire Answer [...] any time in the past 12 m ont, were you homeless or living in a [...] Miscellaneous Notes * Telephone Encounter - Shanthi Baires RN - 11/07/2024 2:46 PM CDT SITUATION: 69 y.o. with fatigue BACKGROUND: regarding contacting PCP office. Per chart review, 09/06/24 last office visit ASSESSMENT: Symptom Description / Location: Symptoms since yesterday. Fatigue. I dont feel good. Feels like she is going to collapse when walking. Face swollen, per daughter almost cannot see neck, feels like her body is swollen. Shortness of breath at rest. Patient has been on steroids for the past 3 months for polymyositis. Has appointment with rheumatology in November. Patient states she is under a lot of recent stress. Denies chest pain Treatment / Response: none No reported treatment. Caller denies pain. Denies fever. RECOMMENDATION: Caller agreeable to highest disposition listed: Go to ED Now. Patient will go now Discussed utilizing [employer] to: send messages to providers - Reason for Disposition: MODERATE difficulty breathing (e.g., speaks in phrases, SOB even at rest, pulse 100-120) of new-onset or worse than normal . Protocols Used: Breathing [id number] See care advice and disposition for Guideline. First positive answer recorded, all responses to prior questions were negative. If symptoms increase, change or if new symptoms develop, call your health care provider or call back. Recommendations were based on caller information and is not a diagnosis. Verified and reviewed all triage information with caller. * Telephone Encounter - Lalita Collado - 11/07/2024 2:45 PM CDT Symptoms: Lethargic (Tired), Face Swelling Outcome: Warm transfer to an emergent RN NOW! Reason: Trouble walking The caller accepted this outcome. documented in this encounter Plan of Treatment Upcoming Encounters Date Type Department Care Team (Late st Contact Info) Description 11/13/2024 2:00 PM CDT Appointment [facility] Cardiology Services [address] [place] [id number] Angelito Alegria APRN, BEHAVIORAL HEALTH CONSULTANT #[address] [address] Discharge Disposition: Discharged to home or Selfcare 11/19/2024 2:00 PM CDT Office Visit [facility] - [place] [address] [place] [address] Annel Rdo MD [address] [facility] [address] [place] [address] documented as of this encounter Visit Diagnoses Not on filedocumented in this encounter Additional Health Concerns Assessment Noted Time PHQ-9 Depression Total Score: 0 08/02/19 25 1:09 PM CDT documented as of this encounter Care Teams Shredder/Granulator Operator Relationship Specialty Start Date End Date Justen Gale MD [address] [facility] [address] [place] [address] PCP - General Family Medicine 10/17/17 David Roberts APRN, NETTA [address] [place] [address] Nurse Practitioner Advanced Practice Nurse 01/31/22 Annel Rod MD [address] [facility] [address] [place] [address] Consulting Physician Endocrinology 07/01/22 documented as of this encounter
--- OUTSIDE RECORDS SUMMARY | 2024-11-07 15:40 | XMS_ITS | Clinical Summary ---
Author Organization [facility] Address [address] [place] [address] Phone Care Team Providers Care Preschool Assistant Teacher Name Role Phone Justen Gale MD Primary Care Provider David Roberts APRN, DIRECTOR OF ARCHITECTURE Unavailable Annel Rod MD Unavailable Allergies Active [...] without long-term current use of insulin ([facility]) Diagnosis: Diabetes Type 2 Blood testing frequency: 4 times a day 1 Each 11/22/19 18 Active Glucose Blood (ONE TOUCH ULTRA TEST) Strip Test four times daily. 400 Strip 3 02/11/20 20 Active Misc. Devices MiscIndication s:LUL (obstructive sleep apnea) Supply and instructions: 1 Each 09/10/19 21 Active OneTouch Delica Lancets 33G [facility] 1 Lancet by Does not apply route 4 times daily. 400 Lancet 3 03/09/20 21 Active naloxone HCl (Narcan) 4 MG/0.1ML Liquid 05/13/19 22 Active diphenhydrAMIN E (BENADRYL) 25 MG Capsule Take 25 mg by mouth every 6 hours as needed. Active oxybutynin (DITROPAN XL) 15 MG TABLET [...] Blood Gluc Sensor (FreeStyle Eileen 2 Sensor) Mis APPLY 1 SENSOR AND WEAR FOR 14 DAYS TO CHECK BLOOD SUGAR 6 Each 1 08/07/19 24 Active albuterol 108 (90 Base) MCG/ACT Aerosol Solution take 2 Puffs by inhalation. 04/19/20 21 Active gabapentin (NEURONTIN) 300 MG Capsule Take 300 mg by mouth. 06/20/19 24 Active HYDROcodone-ac etaminophen (NORCO) 10-325 MG Tablet Take 1 Tablet by mouth. 12/28/19 24 Active Multiple Vitamins-Ashley als (WOMENS MULTI PO) Take by mouth. Activ e Calcium Citrate-Vitami n D (CALCIUM + D PO) Take by mouth. Activ e rOPINIROLE (REQUIP) 5 MG Tablet Take 1 Tablet by mouth nightly. 90 Tablet 2 04/25/19 25 Active Continuous Glucose Sensor (FreeStyle [...] 100 UNITS 90 mL 08/06/19 25 Active montelukast (SINGULAIR) 10 MG TabletIndicati ons:Seasonal Allergic Rhinitis Take 1 Tablet by mouth every evening. Indications: Hayfever 90 Tablet 09/07/19 25 Active clotrimazole (MYCELEX) 10 MG TrocheIndicati ons:Oropharyng eal Candidiasis Take 1 Rozina by mouth 5 times daily. Indications: Candidiasis Fungal Infection of the Oropharynx 50 Rozina 09/07/19 25 Active Additional Information Patient not taking.Reported on 09/29/2024 insulin glargine (Lantus SoloStar) 100 UNIT/ML Solution Pen-injector 50 Units by Subcutaneous route every morning. 45 mL 1 10/18/19 25 Active predniSONE (DELTASONE) 10 MG TabletIndicati ons:Polymyalgi a Rheumatica Take 1 Tablet by mouth daily. Do not stop taking until cleared by PCP office or croze cutter helper. Will need to taper off slowly. Indications: Polymyalgia Rheumatica 30 Tablet 10/29/19 25 Active Insulin Pen Needle (BD Pen Needle Short Ultrafine) 31G X 8 MM Misc USE 6 TIMES A DAY DIRECTED 300 Pen Needle 3 11/06/19 25 Active ondansetron (Zofran) 4 MG Tablet Take 1 Tablet by mouth every 8 hours as needed for Nausea - 1st line. 15 Tablet 11/08/19 25 Active B-D ULTRAFINE III SHORT PEN 31G X 8 MM Misc USE 6 TIMES DAILY DIRECTED 300 Pen Needle 1 06/16/19 23 2024 Discontinued ondansetron (Zofran) 4 MG Tablet Take 1 Tablet by mouth every 8 hours as needed for Nausea - 1st line. 15 Tablet 04/25/19 25 2024 Discontinued(R eorder) insulin glargine (Lantus SoloStar) 100 UNIT/ML Solution Pen-injector 40 Units by Subcutaneous route every morning. 30 mL 08/06/19 25 2024 Discontinued predniSONE (DELTASONE) 10 MG TabletIndicati ons:Polymyalgi a Rheumatica Take 1 Tablet by mouth daily. Do not stop taking until cleared by PCP office or croze cutter helper. Will need to taper off slowly. Indications: Polymyalgia Rheumatica 30 Tablet 10/01/19 25 2024 Discontinued(R eorder) Active Problems Problem Noted Date Diagnosed Date [...] Overview: Added automatically from request for surgery [id number] Lymphedema of left upper extremity 08/09/2016 Pulmonary embolism 08/09/2016 Overview (11/09/2017): Last Assessment & Plan: On Rivaroxaban Arthralgia of ankle 01/26/2015 Cellulitis of breast 11/11/2014 Encounters Date Type Department Care Team Description 11/07/2024 [facility] [address] [place] [address] Justen Gale MD Advice Only; Fatigue; Shortness of Breath 11/06/2024 MyChart RX Renewal [facility] [place] [address] Justen Gale MD Medication Renewal Declined 11/05/2024 [facility] [place] [phone] Justen Gale MD Medication Refill 10/28/2024 MyChart RX Renewal [facility] #[address] [place] [phone] Justen Gale MD Medication Renewal Reviewed 10/17/2024 [facility] [place] [phone] Annel Rod MD Medication Refill 10/08/2024 Nurse Triage [facility] Central Call Center [address] [place] [phone] Justen Gale MD Abdominal Pain 09/30/2024 MyChart RX Renewal [facility] [address] [place] [address] Dulce Wolff, WINDOW MACHINE OPERATOR, DIRECTOR OF ARCHITECTURE Medication Renewal Reviewed 09/29/2024 Nurse Triage [facility] Central Call [address] [phone] Justen Gale MD Urinary Tract Infection 09/23/2024 Nurse Triage [facility] Central Call [address] [phone] Justen Gale MD Breathing Problem; Pain 09/23/2024 Telephone [facility] Call Center [address] [place] [phone] Justen Gale MD Pain 09/11/2024 Telephone [facility] Call Center [address] [place] [phone] Justen Gale MD Follow-up 09/06/2024 1:15 PM CDT Office Visit [facility] [address] [place] [phone] Oehl, Dulce N, WINDOW MACHINE OPERATOR, DIRECTOR OF ARCHITECTURE Enlarged tonsils (Primary Dx); Polymyalgia rheumatica (HCC); Oral candidiasis; Edema, unspecified type Discharge Disposition: Discharged to home or Selfcare 09/06/2024 Travel 09/03/2024 Telephone [facility] [address] [place] [address] Justen Gale MD Follow-up 09/02/2024 [facility] [address] [place] [phone] Justen Gale MD Sore Throat 08/20/2024 1:15 PM CDT Office Visit [facility] [address] [place] [address] Justen Gale MD Acute maxillary sinusitis, recurrence not specified (Primary Dx) Discharge Disposition: Discharged to home or Selfcare 08/20/2024 Travel 08/19/2024 Telephone [facility] [address] [place] [address] Justen Gale MD Advice Only; Follow-up 08/14/2024 Telephone [facility] #2 [place] [address] Annel Rod MD High Blood Sugar 08/13/2024 Nurse Triage [address] [phone] Justen Gale MD High Blood Sugar from Last 3 Months Immunizations Immunization Administration Dates Next Due Covid-19 Vaccine, Vector-nr, Rs-ad26, Pf, 0.5 Ml ([employer]) 06/29/2020 Influenza Vaccine greater than 3 yrs [...] = 0.6 oz pur e alcohol) [facility] Utilities Answer Date Recorded In [...] declined 08/06/2024 How often do you attend [facility] services? More than 4 times per year [...] Total Score - Questions 1-9 0 07/23 [facility] [place] of Occupat ional Health - Occupational [...] 11/13/2024 2:00 PM CDT Appointment [facility] Cardiology Services [address] [place] [address] Angelito Alegria, WINDOW MACHINE OPERATOR, DIRECTOR OF ARCHITECTURE #2 [facility] [address] [place] [address] Discharge Disposition: Discharged to home or Selfcare 11/19/2024 2:00 PM CDT Office Visit [facility] [place] #2 [place] [address] Annel Rod MD #2 [facility] [address] [place] [address] Health Maintenance Due Date Last Done Comments [...] 10/14/2023, 10/02/2023, Additional history exists Influenza Immunization (#1) 2024 0909/2022, 01/17/2023, 01/03/2022, Additional history exists Colonoscopy 01/08/2025 01/09/2020, 09/10/2018 Colorectal Cancer Screening 01/08/2025 Diabetes: Nephropathy Screening 08/02/2025 08/02/2024, 08/01/2024, 12/04/2023, Additional history exists Td Immunization Every 10 Years (Adults With 1 Tdap) 02/22/2026 02/23/2016 Mammogram Unilateral Discontinued 09/10/2014 Hepatitis C Virus (HCV) Screening Completed 02/21/2023 [...] Procedure Name Priority Date/Time Associated Diagnosis Comments INTERNAL MEDICINE CONSULT 10/17/2024 12:[address] - ABDOMEN/PELVIS 10/15/2024 1 2:00 AM CDT SURGERY CONSULT 10/12/2024 12:00 AM CDT INTERNAL MEDICINE CONSULT 10/12/2024 12:[address] - ABDOMEN/PELVIS 10/12/2024 1 2:[address] - ABDOMEN/PELVIS 10/08/2024 1 2:[address] - SPINE 10/06/2024 12:[address] - ABDOMEN/PELVIS 10/03/2024 1 2:00 AM CDT [id number] CONSULT 09/27/2024 12:00 AM CDT EXTERNAL ENT REFERRAL Routine 09/27/2024 12:00 AM CDT XR - CHEST 09/27/2024 12:00 AM CDT PAIN CONSULT 09/19/2024 12:[address] - HEAD/NECK 08/13/2024 12:00 AM CDT CMP (COMPREHENSIVE METABOLIC PANEL) STAT 08/02/2024 11:21 PM CDT HEMOGLOBIN, A1C 10/02/2023 12:00 AM CDT HM COLONOSCOPY Routine 01/09/2020 AMB REFERRAL TO PODIATRY Routine 08/13/2019 POCT STOOL, OCCULT BLOOD, DIAGNOSTIC Routine 09/07/2018 1:20 PM CDT Generalized abdominal pain from Last 3 Months or Most Recently Relevant to Health Maintenance Results * INTERNAL MEDICINE CONSULT (10/17/2024 12:00 AM CDT) Only the most recent of2 resultswithin the time period is included. 10/17/2024 us Provider Scan GENERIC SCAN ORDERS CONSULT Deann l Result Performing Organization Address [facility] de Phone Number SCAN * CT - ABDOMEN/PELVIS (10/15/2024 12:00 AM CDT) Only the most recent of4 resultswithin the time period is included. 10/15/2024 us Provider Scan IMG CT ORDERABLES Final Result Performing Organization Address [facility] Co de Phone Number SCAN * SURGERY CONSULT (10/12/2024 12:00 AM CDT) 10/12/2024 us Provider Scan GENERIC SCAN ORDERS CONSULT Deann l Result Performing Organization Address [facility] de Phone Number SCAN * CT - SPINE (10/06/2024 12:00 AM CDT) 10/06/2024 us Provider Scan IMG CT ORDERABLES Final Result Performing Organization Address [facility] de Phone Number SCAN * EXTERNAL ENT REFERRAL (09/27/2024 12:00 AM CDT) 09/27/2024 Dulce N Oehl WINDOW MACHINE OPERATOR, DIRECTOR OF ARCHITECTURE OUTPT REFERRALS EXT/INT F inal Result Performing Organization Address [facility] de Phone Number SCAN * XR - CHEST (09/27/2024 12:00 AM CDT) 09/27/2024 us Provider Scan IMG DIAGNOSTIC ORDERABLES Final Result Performing Organization Address [facility] de Phone Number SCAN * EUM-BUDJ-IDPIXR CONSULT (09/27/2024 12:00 AM CDT) 09/27/2024 us Provider Scan GENERIC SCAN ORDERS CONSULT Deann l Result Performing Organization Address [facility] de Phone Number SCAN * PAIN CONSULT (09/19/2024 12:00 AM CDT) 09/19/2024 Justen Gale MD GENERIC SCAN ORDERS CONSULT F inal Result Performing Organization Address [facility] de Phone Number SCAN * CT - HEAD/NECK (08/13/2024 12:00 AM CDT) 08/13/2024 us Provider Scan IMG CT ORDERABLES Final Result Performing Organization [facility] de Phone Number SCAN * (ABNORMAL) CMP (Comprehensive Metabolic Panel) (08/02/2024 11:21 PM CDT) SODIUM 138 136 - 145 mmol/L 08/03/2024 12:29 AM CDT [facility] POTASSIUM 4.4 3.5 - 5.1 mmol/L 08/03/2024 12:29 AM CDT [facility] CHLORIDE 104 98 - 107 mmol/L 08/03/2024 12:29 AM T [facility] CO2, VENOUS 26 22 - 30 mmol/L 08/03/2024 12:29 AM CDT [facility] ANION GAP 12.4 <18.0 mmol/L 08/03/2024 12:29 AM T [facility] GLUCOSE 353(H) 70 - 99 mg/dL 08/03/2024 12:29 AM T [facility] BUN 18 10 - 20 mg/dL 08/03/2024 12:29 AM [facility] CREATININE, BLOOD 0.80 0.60 - 1.00 mg/dL 08/03/2024 12:29 AM T [facility] BUN/CREATININE RATIO 23(H) 12 - 20 ratio 08/03/2024 12:29 AM T [facility] TOTAL PROTEIN 8.4(H) 6.0 - 8.0 g/dL 08/03/2024 12:29 AM T [facility] ALBUMIN 3.8 3.5 - 5.0 g/dL 08/03/2024 12:29 AM [facility] A/G RATIO 0.8(L) 1.0 - 2.2 08/03/2024 12:29 AM T [facility] CALCIUM 10.0 8.7 - 10.5 mg/dL 08/03/2024 12:29 AM T [facility] T BILI 0.4 0.2 - 1.2 mg/dL 08/03/2024 12:29 AM T [facility] SGOT (AST) 23 <43 U/L 08/03/2024 12:29 AM T [facility] SGPT (ALT) 22 <56 U/L 08/03/2024 12:29 AM CDT [facility] ALKALINE PHOSPHATASE 67 40 - 150 U/L 08/03/2024 12:29 AM CDT [facility] GFR, ESTIMATED >60 >=60 08/03/2024 12:29 AM CDT [facility] Comment: Creatinine Clearance is the preferred criteria for selecting drug dose adjustments in renally impaired patients. The GFR is provided as additional pertinent clinical information. GFR is reported in mL/min/1.73 sq m. Calculation based on the Chronic Kidney Disease Epidemiology Collaboration (CKD- EPI) equation refit without adjustment for race. GFR, EST. >60 >=60 025 12:29 AM CDT [facility] GFR, EST. NONAFRICAN >60 >=60 08/03/2024 12:29 AM CDT [facility] Blood Venipuncture / Unknown 08/02/2024 11:21 PM CDT 08/03/2024 12:05 AM CDT us Sergio Rivera MD CHEMISTRY ORDERABLES Final Resul t [facility] #[address] [place] [address] * HEMOGLOBIN, A1C (10/02/2023 12:00 AM CDT) HGB-A1C 7.8 SCAN 10/02/2023 us Provider Scan CHEMISTRY ORDERABLES Final Resul t SCAN * HM COLONOSCOPY (01/09/2020) us Genaro Jensen DO PROCEDURE/MINOR SURGICAL ORDERA BLES Final Result * AMB REFERRAL TO PODIATRY (08/13/2019) us Alvarez Mensah MD OUTPATIENT REFERRALS Final Res ult * POCT STOOL, OCCULT BLOOD, DIAGNOSTIC (09/07/2018 1:20 PM CDT) OCCULT BLOOD, STOOL Negative Negative, Other POC HEMOCULT CONTROL Belting And Webbing Inspector Pass 09/07/2018 1:20 PM CDT Pili Elkins WINDOW MACHINE OPERATOR, DIRECTOR OF ARCHITECTURE POINT OF CARE TESTIN G (MANUAL) Final Result from Last 3 Months or Most Recently Relevant to Health Maintenance Insurance MEDICARE C [employer] [facility] Care Teams Preschool Assistant Teacher Relationship Specialty Start Date End Date Justen Gale MD #2 [facility] [address] [place] [address] PCP - General Family Medicine 10/17/17 David Roberts APRN, DIRECTOR OF ARCHITECTURE #2 [place] [address] Nurse Practitioner Advanced Practice Nurse 01/31/22 Annel Rod MD #2 [facility] [address] [place] [address] Consulting Physician Endocrinology 07/01/22
--- OUTSIDE RECORDS SUMMARY | 2024-11-07 15:40 | XMS_ITS | Encounter Summary ---
Author Organization [facility] Address [address] [place] [address] Phone Care Team Providers Care World Language Teacher Name Role Phone Justen Gale MD Primary Care Provider David Roberts APRN, INSOLE LIP TURNER Unavailable Annel Rod MD Unavailable Encounter Details Date Type Department Care Team (Late st Contact Info) Description 06/05/2020 [facility] [address] [place] [address] Pili Elkins APRN, INSOLE LIP TURNER [address] [address] Frequency of micturition Social History [...] COVID-19? No / Unsure 2020 11:37 AM SOCIAL SCIENCE TEACHER documented as of this encounter Plan of Treatment Upcoming Encounters Date Type Department Care Team (Late st Contact Info) Description 11/13/2024 2:00 PM CDT [facility] [address] [place] [address] Angelito Alegria APRN, INSOLE LIP TURNER #2 [facility] [address] [place] [address] Discharge Disposition: Discharged to home or Selfcare 11/19/2024 2:00 PM CDT Office Visit [facility] #2 [place] [address] Annel Rod MD #[address] [address] documented as of this encounter Procedures Procedure Name Priority Date/Time Associated Diagnosis Comments URINALYSIS REFLEX IF INDICATED BY ABNORMAL RESULTS Routine 06/05/2020 4:45 PM SOCIAL SCIENCE TEACHER Frequency of micturition documented in this encounter Results * (ABNORMAL) URINALYSIS REFLEX IF INDICATED BY ABNORMAL RESULTS (06/05/2020 4:45 PM SOCIAL SCIENCE TEACHER) SPECIFIC GRAVITY 1.020 1.003 - 1.030 06/05/2020 5:19 PM SOCIAL SCIENCE TEACHER [facility] URINE PH 5.0 5.0 - 9.0 06/05/2020 5:19 PM SOCIAL SCIENCE TEACHER [facility] WBC ESTERASE Negative Negative 06/05/2020 5:19 PM SOCIAL SCIENCE TEACHER [facility] NITRITE Negative Negative 06/05/2020 5:19 PM SOCIAL SCIENCE TEACHER [facility] PROTEIN, RANDOM URINE Negative Negative 06/05/2020 5:19 PM SOCIAL SCIENCE TEACHER [facility] URINE GLUCOSE, QUAL Negative Negative 06/05/2020 5:19 PM SOCIAL SCIENCE TEACHER [facility] URINE KETONES Negative Negative 06/05/2020 5:19 PM SOCIAL SCIENCE TEACHER [facility] UROBILINOGEN Normal Normal mg/dL 06/05/2020 5:19 PM SOCIAL SCIENCE TEACHER [facility] URINE BILIRUBIN Negative Negative 5:19 PM SOCIAL SCIENCE TEACHER [facility] URINE BLOOD 25 /uL(A) Negative leandro/ul 06/05/2020 5:19 PM SOCIAL SCIENCE TEACHER [facility] URINALYSIS COLOR Yellow 06/05/19 5:19 PM SOCIAL SCIENCE TEACHER [facility] URINALYSIS CLARITY Clear 06/05/2020 5:19 PM SOCIAL SCIENCE TEACHER [facility] WBC (Urine) 0-5 Negative, 0-5 /hpf 06/05/2020 5:19 PM SOCIAL SCIENCE TEACHER [facility] URINE RBC'S 3-5(A) Negative, 0-2 /hpf 06/05/2020 5:19 PM SOCIAL SCIENCE TEACHER [facility] EPITHELIAL CELLS Small amount /lpf 2020 5:19 PM SOCIAL SCIENCE TEACHER [facility] BACTERIA, URINE Few(A) Negative /hpf 06/05/2020 5:19 PM SOCIAL SCIENCE TEACHER [facility] Urine URINE SPECIMEN / Unknown Non-Phlebotomy Collection / Unknown 06/05/2020 4:45 PM SOCIAL SCIENCE TEACHER 06/05/2020 5:00 PM SOCIAL SCIENCE TEACHER us Pili Elkins PERSONAL CARE ASSISTANT, INSOLE LIP TURNER URINE ORDERABLES Fin al Result [facility] #[address] [place] [address] documented in this encounter Visit Diagnoses Diagnosis Frequency of micturition Urinary frequency documented in this encounter Additional Health Concerns Infection Onset Date Last Indicated Resolved Time COVID - 19 08/01/2024 08/01/2024 08/01/2024 3:20 PM CDT Assessment Noted Time PHQ-9 Depression Total Score: 0 09/08/19 19 1:00 PM CDT documented as of this encounter Care Teams World Language Teacher Relationship Specialty Start Date End Date Justen Gale MD #2 [facility] [address] [place] [address] PCP - General Family Medicine 10/17/17 David Roberts, PERSONAL CARE ASSISTANT, INSOLE LIP TURNER #[address] [place] [address] Nurse Practitioner Advanced Practice Nurse 01/31/22 Annel Rod MD #2 [facility] [address] [place] [address] Consulting Physician Endocrinology 07/01/22 documented as of this encounter
--- OUTSIDE RECORDS SUMMARY | 2024-11-07 15:40 | XMS_ITS | Encounter Summary ---
Author Organization [facility] Address [address] [place] [address] Phone Care Team Providers Care Cooling Pan Tender Name Role Phone Justen Gale MD Primary Care Provider David Roberts APRN, MAGAZINE HAND Unavailable Annel Rod MD Unavailable Reason for Visit * Reason Comments Medication Refill Encounter Details Date Type Department Care Team (Late st Contact Info) Description 03/02/2023 Refill [facility] #2 [place] [phone] Justen Gale MD #[address] [address] Medication Refill Social History Tobacco Use Types [...] Tamika Villarreal RN - 03/02/2023 8:51 AM HEAD BANQUET WAITER/WAITRESS Medication failed the protocol, provider to review [...] Dept 01/17/23 Office Visit Catrina Quiñonez MD [facility] 09/16/22 Office Visit Pili Elkins APRN, CNP [facility] 07/05/22 Office Visit Pili Elkins APRN, CNP [facility] 05/02/22 Office Visit Justen Gale MD [facility] 03/03/22 Office Visit Pili Elkins APRN, NETTA [facility] Showing recent visits within past 365 days and meeting all other requirements Future Appointments No visits were found meeting these conditions. Showing future appointments within next 90 days and meeting all other requirements BANQUET WAITER/WAITRESS documented in this encounter Plan of Treatment Upcoming Encounters Date Type Department Care Team (Late st Contact Info) Description 11/13/2024 2:00 PM CDT [facility] [address] [place] [address] Angelito Alegria APRN, MAGAZINE HAND [address] [address] Discharge Disposition: Discharged to home or Selfcare 11/19/2024 2:00 PM CDT [facility] [place] #[address] [place] [address] Annel Rod MD #[address] [address] documented as of this encounter Visit Diagnoses Not on filedocumented in this encounter Additional Health Concerns Infection Onset Date Last Indicated Resolved Time COVID - 19 08/01/2024 08/01/2024 08/01/2024 3:20 PM CDT Assessment Noted Time PHQ-9 Depression Total Score: 8 01/18/20 2:24 PM CDT documented as of this encounter Care Teams Cooling Pan Tender Relationship Specialty Start Date End Date Justen Gale MD #[address] [address] PCP - General Family Medicine 10/17/17 David Roberts, GROUND MIXER, MAGAZINE HAND #[address] [place] [address] Nurse Practitioner Advanced Practice Nurse 01/31/22 Annel Rod MD #[address] [address] Consulting Physician Endocrinology 07/01/22 documented as of this encounter
--- OUTSIDE RECORDS SUMMARY | 2024-11-07 15:40 | XMS_ITS | Encounter Summary ---
Author Organization [facility] Address [address] [place] [address] Phone Care Team Providers Care Geographic Information Systems Engineer Name Role Phone Justen Gale MD Primary Care Provider [phone] David Roberts APRN, JEWEL LATHE OPERATOR Unavailable Annel Rod MD Unavailable Reason for Visit * Reason Comments Medication Refill Encounter Details Date Type Department Care Team (Late st Contact Info) Description 09/30/2023 Refill [facility] - [place] #2 [place] [address] Annel Rod MD #[address] [address] Medication Refill Social History Tobacco [...] 11/13/2024 2:00 PM CDT Appointment [facility] Services 1 [place] [address] Angelito Alegria APRN, JEWEL LATHE OPERATOR #[address] [address] Discharge Disposition: Discharged to home or Selfcare 11/19/2024 2:00 PM CDT Office Visit [facility] #2 [place] [address] Annel Rod MD #[address] [address] documented as of this encounter Visit Diagnoses Not on filedocumented in this encounter Additional Health Concerns Infection Onset Date Last Indicated Resolved Time COVID - 19 08/01/2024 08/01/2024 08/01/2024 3:20 PM CDT Assessment Noted Time PHQ-9 Depression Total Score: 8 01/18/20 2:24 PM CDT documented as of this encounter Care Teams Geographic Information Systems Engineer Relationship Specialty Start Date End Date Justen Gale MD #[address] [place] [address] PCP - General Family Medicine 10/17/17 David Roberts APRN, JEWEL LATHE OPERATOR #2 [place] [address] Nurse Practitioner Advanced Practice Nurse 01/31/22 Annel Rod MD #[address] [address] Consulting Physician Endocrinology 07/01/22 documented as of this encounter
--- OUTSIDE RECORDS SUMMARY | 2024-11-07 15:40 | XMS_ITS | Clinical Summary ---
Author Organization [facility] Address [address] [facility] [place] [address] Care Team Providers Care Semi Driver Name Role Phone Justen Gale MD Primary Care Provider [phone] Source Comments [facility] Affiliates and Associated Physician Practices is amultiple site organization consisting of ambulatory clinics and hospital sitesin [place], [place], [place] and [place]. This disclosure is being madepursuant to the Care Everywhere program and may not contain all information available regarding this patient. Last updated 18.[facility] [employer] Allergies Active Allergy Reactions Criticality Noted Date [...] Team Description 08/14/2024 Results [place] [address] Josué Bernal PA-C 08/13/2024 Telephone ER at [facility] [address] [place] [address] Jordana Abdul MD ER UC Follow-up 08/09/2024 6:46 PM CDT - 08/09/2024 9:35 PM CDT Emergency ER at [address] [id number] Yasmin Matthew DO Shortness of breath; Strep [...] medical care, and heating? 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 Right: Spine Thoracic Advanced Neu[employer]od[employer] Systems [id number] / / Description:CAMILO Slnt Dura Duraseal Pg Trilysine Amine 5 Implanted:Qt y: 1 on 09/16/2021 by Maxi Gregg MD at [facility] Right: Spine Thoracic Integra [employer] David [id number] / / Description:CAMILO Proclaim Plus 5 Implanted:Qt y: 1 on 02/16/2023 by Maxi Gregg MD at [facility] Left: Back Cardenas Spine [id number] 11/07/2024 3670 / [id number] / Explanted Type Area Forklift Truck Operator Device Identifier Shelf Expiration Date Model / Serial / Lot Gntr Nrstm 1.95inx2.19in Proclaim Elt Implanted:Qty: 1 on 09/16/2021 by Maxi Gregg MD at [facility] Explanted:Qty: 1 on 10/30/2021 by Maxi Gregg MD at [facility] Right: Spine Thoracic [facility] [...] 08/09/2024 8:46 PM CDT [facility] Specific [place] UA 1.014 1.005 - 1.030 08/09/2024 8:46 [...] 5 # /hpf 08/09/2024 8:46 PM CDT [facility] Bacteria UA Trace(A) None Seen 08/09/2024 8:46 PM CDT [facility] Squamous Epithelial Cells None Seen 0 - 5 /hpf 08/09/2024 8:46 PM CDT [facility] Mucus UA 1+ /LPF 08/09/2024 8:46 PM CDT [facility] Urine URINE SPECIMEN OBTAINED BY CLEAN CATCH PROCEDURE / Unknown 08/09/2024 8:39 PM CDT 08/09/2024 8:39 PM CDT Narrative [facility] - 08/09/2024 8:46 PM CDT Yasmin Matthew DO LAB - URINALYSIS ORDERABLES Final Result Performing Organization Address City/State/[facility] Co de Phone Number [facility] [address] [place] [address] * (ABNORMAL) CULTURE URINE (08/09/2024 8:39 PM CDT) [facility] Culture Urine 50,000-100,000 CFU/mL Escherichia coli(A) TERRANCE 08/12/2024 4:04 AM CDT [facility] Culture Urine 10,000-50,000 CFU/mL urogenital evelio TERRANCE 08/12/2024 4:04 AM CDT [facility] Urine URINE SPECIMEN OBTAINED BY CLEAN CATCH PROCEDURE / Unknown 08/09/2024 8:39 PM CDT 08/09/2024 8:39 PM CDT Narrative [facility] - 08/12/2024 4:04 AM [...] LAB - MICROBIOLOGY ORDERABLE S Final Result [facility] [address] [facility] [place], [place] [address], [facility] [phone] * SARS-COV-2 (COVID-19) FLU A/B RSV PCR RAPID (08/09/2024 7:40 PM CDT) [facility] COVID-19 PCR Not detected Not detected 08/10/19 8:24 PM CDT [facility] Influenza A PCR Not detected Not detected 08/09/2024 8:24 PM CDT [facility] Influenza B PCR Not detected Not detected 08/09/2024 8:24 PM CDT [facility] RSV PCR Not detected Not detected 08/09/2024 8:24 PM CDT [facility] Microbiology SPECIMEN FROM NASOPHARYNGEAL STRUCTURE / Unknown Collection / Unknown 08/09/2024 7:40 PM CDT 08/09/2024 7:40 PM CDT Narrative [facility] - 08/09/2024 8:24 [...] ORDERABLE S Final Result Performing Organization Address [facility] Co de Phone Number [facility] [address] [place] [phone] * (ABNORMAL) STREP A SCREEN DIRECT W RFLX STREP A CULTURE (08/09/2024 7:40 PM CDT) [facility] Strep A Rapid Positive(A ) Negative 08/09/2024 7:53 PM CDT [facility] Microbiology ENTIRE THROAT (SURFACE REGION OF NECK) / Unknown Collection / Unknown 08/09/2024 7:40 PM CDT 08/09/2024 7:40 PM CDT Yasmin Vipul LAB - MICROBIOLOGY ORDERABLE S Final Result Performing Organization Address [facility] de Phone Number [facility] [address] [place] [address] * EKG 12-LEAD (08/09/2024 7:06 PM CDT) Ventricular Rate 86 BPM [facility] Atrial Rate 86 BPM [facility] P-R Interval 122 ms [facility] QRS Duration ms 86 ms [facility] Q-T Interval ms 370 ms [facility] QTC Calculation (Bezet) 442 ms [facility] Calculated R [place] 8 degrees [facility] Calculated T [place] 51 degrees [facility] Interpretation EKG NORMAL SINUS RHYTHM WITH SINUS ARRHYTHMIA SEPTAL INFARCT , AGE UNDETERMINED ABNORMAL ECG WHEN COMPARED WITH ECG OF 09-AUG-2024 13:34, SINUS RHYTHM HAS REPLACED ECTOPIC ATRIAL RHYTHM SEPTAL INFARCT IS NOW PRESENT Confirmed by Gil Perrin MD ([id number]) on 08/10/2024 9:03:52 AM [facility] 08/09/2024 7:06 PM CDT 08/10/2024 9:03 AM CDT Josué Bernal PA-C ECG ORDERABLES Edited Re sult - Final Performing Organization Address City/[facility]/ZIP Co de Phone Number [facility] * TROPONIN-I HIGH SENSITIVE REFLEX 1HOUR (08/09/2024 3:29 PM CDT) [facility] Troponin I High Sensitive 5 <=14 ng/L 08/09/2024 4:50 PM CDT [facility] Delta Troponin I HS 08/09/2024 4:50 PM CDT [facility] Comment:Delta value intentio yissel not calculated. Baseline to 1 hour specimen collection interval exceeded. Blood BLOOD SPECIMEN / Unknown Venipuncture / Unknown 08/09/2024 3:29 PM CDT 08/09/2024 3:33 PM CDT Josué Bernal PA-C LAB - CHEMISTRY ORDERABLE S Final Result Performing Organization Address [facility] Co de Phone Number [facility] [address] [place] [address] * XR CHEST 2VW (08/09/2024 1:59 PM [...] BASELINE + 1HR (08/09/2024 1:40 PM CDT) [facility] Troponin I High Sensitive 6 <=14 ng/L 08/09/2024 2:14 PM CDT [facility] Blood BLOOD SPECIMEN / Unknown Venipuncture / Unknown 08/09/2024 1:40 PM CDT 08/09/2024 1:43 PM CDT Josué Bernal PA-C LAB - CHEMISTRY ORDERABLE S Final Result [facility] [address] [place] [address] * (ABNORMAL) CBC W AUTO DIFFERENTIAL (08/09/2024 1:40 PM CDT) [facility] WBC 15.6(H) 4.0 - 10.7 x10E9/L 08/09/2024 1:47 PM CDT [facility] RBC Count 4.44 3.90 - 5.20 x10E12/L 08/09/2024 1:47 PM CDT [facility] Hemoglobin 13.0 11.9 - 15.8 g/dL 08/09/2024 1:47 PM CDT [facility] Hematocrit 40.4 34.8 - 46.1 % 08/09/2024 1:47 PM CDT [facility] MCV 91.0 80.0 - 98.0 fL 08/09/2024 1:47 PM CDT [facility] MCH 29.3 26.7 - 33.6 pg 08/09/2024 1:47 PM CDT [facility] MCHC 32.2 31.7 - 36.3 g/dL 08/09/2024 1:47 PM CDT [facility] RDW-CV 13.0 11.3 - 14.8 % 08/09/2024 1:47 PM CDT [facility] Platelet Count 249 150 - 420 x10E9/L 08/09/2024 1:47 PM CDT [facility] MPV 9.6 7.8 - 11.4 fL 08/09/2024 1:47 PM CDT [facility] Neutrophil % 72.7 41.0 - 74.0 % 08/09/2024 1:47 PM CDT [facility] Lymphocyte % 18.0 17.0 - 47.0 % 08/09/2024 1:47 PM CDT [facility] Monocyte % 7.5 3.0 - 11.0 % 08/09/2024 1:47 PM CDT [facility] Eosinophil % 1.2 0.0 - 7.0 % 08/09/2024 1:47 PM CDT [facility] Basophil % 0.2 0.0 - 1.6 % 08/09/2024 1:47 PM CDT [facility] Immature Granulocytes % 0.4 0.0 - 1.0 % 08/09/2024 1:47 PM CDT [facility] Neutrophil Absolute 11.35(H) 1.60 - 7.50 x10E9/L 08/09/2024 1:47 PM CDT [facility] Lymphocyte Absolute 2.82 1.00 - 4.40 x10E9/L 08/09/2024 1:47 PM CDT [facility] Monocyte Absolute 1.18(H) 0.15 - 1.00 x10E9/L 08/09/2024 1:47 PM CDT [facility] Eosinophil Absolute 0.19 0.00 - 0.60 x10E9/L 08/09/2024 1:47 PM CDT [facility] Basophil Absolute 0.03 0.00 - 0.13 x10E9/L 08/09/2024 1:47 PM CDT [facility] Blood BLOOD SPECIMEN / Unknown Venipuncture / Unknown 08/09/2024 1:40 PM CDT 08/09/2024 1:43 PM CDT Josué MCKEON-C LAB - HEMATOLOGY ORDERABL ES Final Result Performing Organization Address [facility] Co de Phone Number [facility] [address] [place] [phone] * B-TYPE NATRIURETIC PEPTIDE (08/09/2024 1:40 PM CDT) BNP 29 <=100 pg/mL 08/09/2024 2:11 PM CDT [facility] Blood BLOOD SPECIMEN / Unknown Venipuncture / Unknown 08/09/2024 1:40 PM CDT 08/09/2024 1:43 PM CDT Narrative [facility] - 08/09/2024 2:11 [...] ORDERABLE S Final Result Performing Organization Address [facility] Co de Phone Number [facility] [address] [place] [address] * (ABNORMAL) COMPREHENSIVE METABOLIC PANEL (08/09/2024 1:40 PM CDT) [facility] Glucose 212(H) 70 - 99 mg/dL 08/09/2024 2:09 PM CDT [facility] Sodium 136 136 - 145 mmol/L 08/09/2024 2:09 PM CDT [facility] Potassium 3.9 3.5 - 5.1 mmol/L 08/09/2024 2:09 PM CDT [facility] Chloride 103 98 - 107 mmol/L 08/09/2024 2:09 PM CDT [facility] CO2 24 22 - 29 mmol/L 08/09/2024 2:09 PM T [facility] Calcium 9.4 8.4 - 10.4 mg/dL 08/09/2024 2:09 PM [facility] Anion Gap 9 6 - 16 mmol/L 08/09/2024 2:09 PM T [facility] BUN 19 7 - 26 mg/dL 08/09/2024 2:09 PM T [facility] Creatinine 0.82 0.57 - 1.11 mg/dL 08/09/2024 2:09 PM [facility] Alkaline Phosphatase 68 40 - 150 U/L 08/09/2024 2:09 PM CDT [facility] ALT 22 6 - 57 U/L 08/09/2024 2:09 PM T [facility] AST 23 10 - 48 U/L 08/09/2024 2:09 PM [facility] Protein Total 8.0 6.4 - 8.3 gm/dL 08/09/2024 2:09 PM T [facility] Albumin 3.3(L) 3.4 - 5.0 gm/dL 08/09/2024 2:09 PM [facility] Bilirubin Total 0.9 0.2 - 1.2 mg/dL 08/09/2024 2:09 PM [facility] eGFR by CKD-EPI 78(L) >=90 mL/min/1.7 3 m2 08/09/2024 2:09 PM [facility] Blood BLOOD SPECIMEN / Unknown Venipuncture / Unknown 08/09/2024 1:40 PM CDT 08/09/2024 1:43 PM CDT Josué MCKEON-Ana Laura LAB - CHEMISTRY ORDERABLE S Final Result Performing Organization Address [facility] de Phone Number [facility] [address] [place], [place] [phone] * (ABNORMAL) MAGNESIUM BLOOD (08/09/2024 1:40 PM CDT) Pathologist [facility] Magnesium 1.5(L) 1.6 - 2.6 mg/dL 08/09/2024 2:09 PM CDT [facility] Blood BLOOD SPECIMEN / Unknown Venipuncture / Unknown 08/09/2024 1:40 PM CDT 08/09/2024 1:43 PM CDT Josué MCKEON-C LAB - CHEMISTRY ORDERABLE S Final Result Performing Organization Address [facility] de Phone Number [facility] [address] [place] [address] * CK BLOOD (08/09/2024 1:40 PM CDT) [facility] CK 107 29 - 168 U/L 08/09/2024 7:44 PM CDT [facility] Blood BLOOD SPECIMEN / Unknown Venipuncture / Unknown 08/09/2024 1:40 PM CDT 08/09/2024 1:43 PM CDT Yasmin Matthew DO LAB - CHEMISTRY ORDERABLES F inal Result Performing Organization Address [facility] Co de Phone Number [facility] [address] [place] [phone] * HEPATITIS C AB SCREEN RFLX NAAT QUANT (02/21/2023 6:30 PM CDT) [facility] Hepatitis C Antibody Non-react hugh Non-reac tive 02/21/2023 7:32 PM CDT [facility] Comment:Hepatitis C Antibody screen [...] ORDERABLES Fi nal Result Performing Organization Address City/[facility]/ZIP Co de Phone Number [facility] [address] [place] [address], [place] [phone] * (ABNORMAL) HEMOGLOBIN A1C (12/25/2022 3:56 AM CDT) Hemoglobin A1c 8.6(H) <=5.6 % 12/25/2022 2:47 PM CDT [facility] Estimated Average Glucose 200 mg/dL 12/25/2022 2:47 PM CDT [facility] Comment: HbA1c Interpretation: Normal : < 5.7% Pre-diabetes: 5.7-6.4% Diabetes: Equal to or greater than 6.5% Test results diagnostic of diabetes should be repeated for confirmation. Treatment target values recommended by ADA and other clinical organizations should be used to evaluate metabolic control in patients. Reference: [place] [employer], Standards of Care in Diabetes [...] LAB - CHEMISTRY ORDERA BLES Final Result [facility] [address] [place] [address], [place] [phone] from Last 3 Months or Most Recently [...] 3:37 AM 03/23/2023 7:14 PM Care Teams Semi Driver Relationship Specialty Start Date End Date Justen Gale MD PCP - General 07/05/21
--- OUTSIDE RECORDS SUMMARY | 2024-11-07 15:40 | XMS_ITS | Encounter Summary ---
Author Organization [facility] Address [address] [place] [address] Phone Care Team Providers Care Natural Remedy Consultant Name Role Phone Justen Gale MD Primary Care Provider David Roberts APRN, PRESS CUTTER Unavailable [phone] Annel Rod MD Unavailable Reason for Visit * Reason Comments Medication Refill Encounter Details Date Type Department Care Team (Late st Contact Info) Description 07/14/2022 Refill [facility] #2 [place] [address] Justen Gale MD #[address] [address] Medication Refill Social History Tobacco Use Types [...] 11/13/2024 2:00 PM CDT Appointment [facility] Cardiology Services [address] [place] [id number] Angelito Alegria APRN, PRESS CUTTER #2 [facility] [address] [place] [address] Discharge Disposition: Discharged to home or Selfcare 11/19/2024 2:00 PM CDT Office Visit [facility] - End[facility]ology - [place] #2 [place] [phone] Annel Rod MD #2 [facility] [address] [place] [id number] documented as of this encounter Visit Diagnoses Not on filedocumented in this encounter Additional Health Concerns Infection Onset Date Last Indicated Resolved Time COVID - 19 08/01/2024 08/01/2024 08/01/2024 3:20 PM CDT Assessment Noted Time PHQ-9 Depression Total Score: 0 07/21/19 21 3:00 PM CDT documented as of this encounter Care Teams Natural Remedy Consultant Relationship Specialty Start Date End Date Justen Gale MD #2 [facility] [address] [place] [address] PCP - General Family Medicine 10/17/17 David Roberts, HORTICULTURE TEACHER, PRESS CUTTER #2 [place] [address] Nurse Practitioner Advanced Practice Nurse 01/31/22 Annel Rod MD #2 [facility] [address] [place] [address] Consulting Physician Endocrinology 07/01/22 documented as of this encounter
--- OUTSIDE RECORDS SUMMARY | 2024-11-07 17:46 | XMS_ITS | Encounter Summary ---
Author Organization [facility] Address [address] [place] [address] Phone Care Team Providers Care Director Zone Name Role Phone Justen Gale MD Primary Care Provider [phone] David Roberts APRN, RAILROAD SHOP INSPECTOR Unavailable [phone] Annel Rod MD Unavailable Reason for Visit * Reason Onset Date Comments Advice Only 11/07/2024 Fatigue 11/07/2024 Shortness of Breath 11/07/2024 Encounter Details Date Type Department Care Team (Late st Contact Info) Description 11/07/2024 Nurse Triage [facility] [address] [place] [address] Justen Gale MD #[address] [address] Advice Only; Fatigue; Shortness of Breath Social History Tobacco Use Types Packs/Day Years Used Date Smoking Tobacco: Never Smokeless Tobacco: Never Alcohol Use Standard Drinks/Week Comments No 0 (1 standard drink = 0.6 oz pur e alcohol) [facility] Utilities Answer Date Recorded In the past 12 months has [employer] electric, gas, oil, or water company threatened [...] Total Score - Questions 1-9 0 07/23 [facility] - Occupational Stress Questionnaire Answer Date [...] Now. Patient will go now Discussed utilizing [employer] to: send messages to providers - Reason for Disposition: MODERATE difficulty breathing (e.g., speaks in phrases, SOB even at rest, pulse 100-120) of new-onset or worse than normal . Protocols Used: Breathing Hthuetoyib-L-EW See care advice and disposition for Guideline. [...] Info) Description 11/13/2024 2:00 PM CDT Appointment [facility] Cardiology Services [address] [place] [phone] Angelito Alegria APRN, RAILROAD SHOP INSPECTOR #[address] [address] Discharge Disposition: Discharged to home or Selfcare 11/19/2024 2:00 PM CDT [facility] Visit [facility] - [place] #2 [place] [address] Annel Rod MD #2 [facility] [address] [place] [address] documented as of this encounter Visit Diagnoses Not on filedocumented in this encounter Additional Health Concerns Assessment Noted Time PHQ-9 Depression Total Score: 0 08/02/19 25 1:09 PM CDT documented as of this encounter Care Teams Director Zone Relationship Specialty Start Date End Date Justen Gale MD #2 [facility] [address] [place] [address] PCP - General Family Medicine 10/17/17 David Roberts APRN, NETTA #[address] [place] [address] Nurse Practitioner Advanced Practice Nurse 01/31/22 Annel Rod MD #2 [facility] [address] [place] [address] Consulting Physician Endocrinology 07/01/22 documented as of this encounter
--- OUTSIDE RECORDS SUMMARY | 2024-11-07 17:46 | XMS_ITS | Encounter Summary ---
Author Organization [facility] Address [address] [place] [address] Phone Care Team Providers Care Gwot Ia/Ilo Intelligence Support Name Role Phone Justen Gale MD Primary Care Provider David Roberts APRN, CAKE INSPECTOR Unavailable [phone] Annel Rod MD Unavailable Reason for Visit * Reason Onset Date Comments Medication Refill 08/06/2020 Encounter Details Date Type Department Care Team (Late st Contact Info) Description 08/06/2020 Refill [facility] [place] [id number] Justen Gale MD #[address] [address] Medication Refill Social History Tobacco Use Types [...] Visits 2 weeks ago CRP elevated [facility] Pili Mueller APN, CAKE INSPECTOR 2 months ago Increased urinary frequency [facility] Pili Mueller APN, CAKE INSPECTOR 5 months ago Urinary frequency [facility] Pili Mueller APN, CAKE INSPECTOR 8 months ago Type 2 diabetes mellitus with diabetic polyneuropathy, with long- term current use of insulin (HCC) [facility] Pili Mueller APN, CAKE INSPECTOR 9 months ago [facility] Justen Urbano MD Upcoming Appointments Future Appointments In 6 days Pili Elkins APN, CAKE INSPECTOR [facility] ANALYST GEOCHEMICAL PROSPECTING - Recent and Past Visits Recent Visits Date Type Provider Dept 07/20/20 Office Visit Pili Elkins APN, CAKE INSPECTOR [facility] 06/05/20 Office Visit Pili Elkins APN, NETTA [facility] 02/17/20 Office Visit Pili Elkins APN, NETTA [facility] 12/03/19 Office Visit Pili Elkins APN, NETTA [facility] 11/05/19 Telemedicine Justen Gale MD [facility] 07/25/19 Telemedicine [facility] MD [facility] Showing recent visits within past 460 days with a meds authorizing provider and meeting all other requirements Future Appointments Date Type Provider Dept 08/12/20 Appointment Pili Elkins APN, CNP [facility] Showing future appointments within next 90 days [...] Info) Description 11/13/2024 2:00 PM CDT [facility] 1 [place] [address] Angelito Alegria APRN, NETTA #[address] [address] Discharge Disposition: Discharged to home or Selfcare 11/19/2024 2:00 PM CDT Office Visit [facility] - [place] #2 [place] [address] Annel Rod MD #[address] [address] documented as of this encounter Visit Diagnoses Not on filedocumented in this encounter Additional Health Concerns Infection Onset Date Last Indicated Resolved Time COVID - 19 08/01/2024 08/01/2024 08/01/2024 3:20 PM CDT Assessment Noted Time PHQ-9 Depression Total Score: 0 07/21/19 3:00 PM CDT documented as of this encounter Care Teams Gwot Ia/Ilo Intelligence Support Relationship Specialty Start Date End Date Justen Gale MD #[address] [address] PCP - General Family Medicine 10/17/17 David Roberts APRN, CAKE INSPECTOR #2 [place] [address] Nurse Practitioner Advanced Practice Nurse 01/31/22 Annel Rod MD #[address] [address] Consulting Physician Endocrinology 07/01/22 documented as of this encounter
--- OUTSIDE RECORDS SUMMARY | 2024-11-07 17:46 | XMS_ITS | Encounter Summary ---
Author Organization [facility] Address [address] [place] [address] Phone Care Team Providers Care Real Estate Services Administrator Name Role Phone Justen Gale MD Primary Care Provider David Roberts APRN, PAN HELPER Unavailable Annel Rod MD Unavailable Encounter Details Date Type Department Care Team (Late st Contact Info) Description 06/05/2020 [facility] 1 [place] [address] Pili Elkins APRN, PAN HELPER #[address] [address] Frequency of micturition Social History [...] COVID-19? No / Unsure 2020 11:37 AM POLITICAL CONSULTANT documented as of this encounter Plan of Treatment Upcoming Encounters Date Type Department Care Team (Late st Contact Info) Description 11/13/2024 2:00 PM CDT [facility] 1 [place] [address] Angelito Alegria APRN, PAN HELPER #2 [facility] [address] [place] [address] Discharge Disposition: Discharged to home or Selfcare 11/19/2024 2:00 PM CDT Office Visit [facility] #2 [place] [address] Annel Rod MD #[address] [address] documented as of this encounter Procedures Procedure Name Priority Date/Time Associated Diagnosis Comments URINALYSIS REFLEX IF INDICATED BY ABNORMAL RESULTS Routine 06/05/2020 4:45 PM POLITICAL CONSULTANT Frequency of micturition documented in this encounter Results * (ABNORMAL) URINALYSIS REFLEX IF INDICATED BY ABNORMAL RESULTS (06/05/2020 4:45 PM POLITICAL CONSULTANT) SPECIFIC GRAVITY 1.020 1.003 - 1.030 06/05/2020 5:19 PM POLITICAL CONSULTANT [facility] URINE PH 5.0 5.0 - 9.0 06/05/2020 5:19 PM POLITICAL CONSULTANT [facility] WBC ESTERASE Negative Negative 06/05/2020 5:19 PM POLITICAL CONSULTANT [facility] NITRITE Negative Negative 06/05/2020 5:19 PM POLITICAL CONSULTANT [facility] PROTEIN, RANDOM URINE Negative Negative 06/05/2020 5:19 PM POLITICAL CONSULTANT [facility] URINE GLUCOSE, QUAL Negative Negative 06/05/2020 5:19 PM POLITICAL CONSULTANT [facility] URINE KETONES Negative Negative 06/05/2020 5:19 PM POLITICAL CONSULTANT [facility] UROBILINOGEN Normal Normal mg/dL 06/05/2020 5:19 PM POLITICAL CONSULTANT [facility] URINE BILIRUBIN Negative Negative 5:19 PM POLITICAL CONSULTANT [facility] URINE BLOOD 25 /uL(A) Negative leandro/ul 06/05/2020 5:19 PM POLITICAL CONSULTANT [facility] URINALYSIS COLOR Yellow 06/05/19 5:19 PM POLITICAL CONSULTANT [facility] URINALYSIS CLARITY Clear 06/05/2020 5:19 PM POLITICAL CONSULTANT [facility] WBC (Urine) 0-5 Negative, 0-5 /hpf 06/05/2020 5:19 PM POLITICAL CONSULTANT [facility] URINE RBC'S 3-5(A) Negative, 0-2 /hpf 06/05/2020 5:19 PM POLITICAL CONSULTANT [facility] EPITHELIAL CELLS Small amount /lpf 2020 5:19 PM POLITICAL CONSULTANT [facility] BACTERIA, URINE Few(A) Negative /hpf 06/05/2020 5:19 PM POLITICAL CONSULTANT [facility] Urine URINE SPECIMEN / Unknown Non-Phlebotomy Collection / Unknown 06/05/2020 4:45 PM POLITICAL CONSULTANT 06/05/2020 5:00 PM POLITICAL CONSULTANT us Pili Elkins PHYSICIAN SCRIBE, PAN HELPER URINE ORDERABLES Fin al Result [facility] #1 [place] [address] documented in this encounter Visit Diagnoses Diagnosis Frequency of micturition Urinary frequency documented in this encounter Additional Health Concerns Infection Onset Date Last Indicated Resolved Time COVID - 19 08/01/2024 08/01/2024 08/01/2024 3:20 PM CDT Assessment Noted Time PHQ-9 Depression Total Score: 0 09/08/19 19 1:00 PM CDT documented as of this encounter Care Teams Real Estate Services Administrator Relationship Specialty Start Date End Date Justen Gale MD #2 [facility] [address] [place] [address] PCP - General Family Medicine 10/17/17 David Roberts, PHYSICIAN SCRIBE, PAN HELPER #2 [place] [address] Nurse Practitioner Advanced Practice Nurse 01/31/22 Annel Rod MD #2 [facility] [address] [place] [address] Consulting Physician Endocrinology 07/01/22 documented as of this encounter
--- OUTSIDE RECORDS SUMMARY | 2024-11-07 17:46 | XMS_ITS | Clinical Summary ---
Author Organization [facility] Address [address] [place] [address] Care Team Providers Care Signal Supervisor Name Role Phone Liu Jerez MD Unavailable [phone] Albert Corbin MD Unavailable Justen Gale MD Primary Care Provider Khris Arthur MD Unavailable [phone] Ko Melendez MD Unavailable John Paul Moyer [...] 05/22/2024 Assessment & Plan (05/26/2024 10:08 AM QUALITY ASSURANCE CLERK): Presenting with urinary symptoms of right [...] 05/22/2024 Assessment & Plan (05/25/2024 7:52 AM QUALITY ASSURANCE CLERK): Hx of breast cancer c/b DVT/bilateral [...] 05/22/2024 Assessment & Plan (05/22/2024 1:14 PM QUALITY ASSURANCE CLERK): -long-standing chronic back pain -CT L [...] complication, without long-term current use of insulin ([facility]) 10/23/2017 Assessment & Plan (10/23/2017 2:06 AM [...] 10/13/2017 Assessment & Plan (05/22/2024 12:29 PM QUALITY ASSURANCE CLERK): -Hx stage II, ER positive, HER2 [...] 08/01/2017 Assessment & Plan (05/22/2024 12:33 PM QUALITY ASSURANCE CLERK): -Hx LUL -Hospital provided CPAP ordered History of DVT (deep vein thrombosis) 08/01/2017 History of pulmonary embolism 08/01/2017 Generalized weakness 07/27/2017 Dyspnea 07/27/2017 Unintentional weight loss 07/27/2017 Acute cystitis without hematuria 07/27/2017 Nausea and vomiting 07/26/2017 Overview (07/28/2017): Added automatically from request for surgery [id number] Pulmonary embolism 08/09/2016 Assessment & Plan (10/23/2017 2:05 AM CDT): On Rivaroxaban Lymphedema of left upper extremity 08/09/2016 Assessment & Plan (05/25/2024 7:53 AM QUALITY ASSURANCE CLERK): S/p L axillary lymph node dissection [...] syndrome Assessment & Plan (05/22/2024 11:18 AM QUALITY ASSURANCE CLERK): -continue home Requip 5mg nightly Pain of lower extremity 03/12/2013 Overview (07/29/2016): Leg pain Essential hypertension Assessment & Plan (05/23/2024 10:42 AM QUALITY ASSURANCE CLERK): -Chart history of HTN but not on meds -BP elevated on admission, likely some pain contributing -Monitor closely once pain under adequate control, discussed following up with PCP for this Chronic anticoagulation Restless leg syndrome 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 Type 2 diabetes mellitus without complication Assessment & Plan (05/24/2024 1:39 PM QUALITY ASSURANCE CLERK): -Last Ha1c 8.4 in 2023, repeat [...] oz pur e alcohol) [facility] [email or web address] Answer Date Recorded In the past 12 months has [employer], gas, oil, or water [employer] threatened to shut off services in your [...] file Legal Sex Female 12:24 AM QUALITY ASSURANCE CLERK Gender Identity Not on file Sexual [...] CDT HEMOGLOBIN A1C STAT 05/21/2024 4:20 PM QUALITY ASSURANCE CLERK LIPID PANEL STAT 05/21/2024 4:20 PM QUALITY ASSURANCE CLERK DEXA AXIAL SKELETON BONE DENSITY 1 OR [...] reviewed 2021. Testing performed by: [facility], [address] [place] [address]., [id number] Blood 07/01/2024 2:02 PM CDT 07/01/2024 2:12 PM CDT us Ilana Stevens MD LAB BLOOD ORDERABLES F inal Result [facility] [address] [facility] Department [place] [address] * (ABNORMAL) Hemoglobin A1c (05/21/2024 4:20 PM QUALITY ASSURANCE CLERK) Hgb A1C 8.7(H) 4.0 - 5.6 % Estimated Average Glucose 203 mg/dL [facility] Comment: The ADA recommends reporting an estimated Average Glucose (eAG) with all Hemoglobin A1c results using the equation derived from a study of 507 normal and diabetic adults. Minority populations were underrepresented and children were not included. (Diabetes Care 2020; 43(S1): S66-S76). The eAG is not equivalent to a fasting glucose. Blood 05/21/2024 4:20 PM QUALITY ASSURANCE CLERK 05/21/2024 4:55 PM QUALITY ASSURANCE CLERK us Leo Henry MD LAB BLOOD ORDERABLES Final Result [facility] Department [place] [address] * (ABNORMAL) Lipid panel (05/21/2024 4:20 PM QUALITY ASSURANCE CLERK) Cholesterol 205(H) 30 - 199 mg/dL Comment: [...] 2017. Triglycerides 92 <=149 mg/dL [facility] Comment: Interpretive Data Ages < or [...] 2017. HDL 55 >=40 mg/dL [facility] Comment: Interpretive Data Ages < or [...] LDL, calculated 134(H) <=129 mg/dL [facility] Comment: Interpretive Data Ages < or [...] revised on 2023. Non-HDL Cholesterol 150 mg/dL [facility] Comment: Interpretive Data Ages < or = [...] [facility] Blood 05/21/2024 4:20 PM QUALITY ASSURANCE CLERK 05/21/2024 4:50 PM QUALITY ASSURANCE CLERK Narrative [facility] - 05/22/2024 4:17 PM QUALITY ASSURANCE CLERK Reflex us Leo Henry MD LAB BLOOD ORDERABLES Final Result [facility] Department [place] [address] * Dexa Axial Skeleton Bone Density 1 or 2 Site (08/02/2022 10:53 AM CDT) Anatomical Region Laterality Modality Body N/A Radiographic Lizeth ging Narrative 08/02/2022 3:34 PM CDT Patient Name: Karly Marques Date of : 1955 Date of scan: 08/02/2022 Bone mineral density was performed on a HoloLavaboom Discovery Densitometer. Based on machine cross-calibration and [...] by the International Society of Clinical Densitometry. [id number] us Khris Arthur MD IMG DXA PROCEDURES [...] agrees with it. ACC# Date Time Exam [id number] Aug 19, 2016 14:27:00 [facility] [id number] Dia Mamm, inc CAD, unilat L Technologist(s): Carla Harris; ; [id number] Aug 19, 2016 15:39:00 [facility] [address] Breast US unilateral, ltd L ACC# Date Time Exam [id number] Aug 19, 2016 14:27:00 [facility] [address] D[employer] inc CAD, unilat L Technologist(s): Carla Harris; ; [id number] Aug 19, 2016 15:39:00 [facility] [address] Breast US unilateral, ltd L EXAMINATION: LEFT [...] SARABIA M.D. on Aug 19 2016 4:20P [id number] Procedure Note Miscellaneous, Not In File / Provider, MD Tyler - 09/17/2016 ANTHONY SARABIA M.D. JUDY RINCON M.D. FINAL REPORT The radiology attending physician has personally reviewed this study, and has reviewed and/or edited this written report and agrees with it. ACC# Date Time Exam [id number] Aug 19, 2016 14:27:00 [facility] [address] Diag Mamm, inc CAD, unilat L Technologist(s): Carla Harris; ; [id number] Aug 19, 2016 15:39:00 [facility] [address] Breast US unilateral, ltd L ACC# Date Time Exam [id number] Aug 19, 2016 14:27:00 [facility] [address] Diag Mamm, inc CAD, unilat L Technologist(s): Carla Harris; ; [id number] Aug 19, 2016 15:39:00 [facility] [address] Breast US unilateral, ltd L EXAMINATION: LEFT [...] SARABIA M.D. on Aug 19 2016 4:20P [id number] us Not In File Miscellaneous IMG MAMMO PROCEDURES F inal Result from Last 3 Months or Most Recently Relevant to Health Maintenance Insurance IDPA [facility] MEDICARE ADVANTAGE [facility] MEDICARE ADVANTAGE [facility] MEDIC[facility] ADVANTAGE Advance Directives For more information, please contact: [phone] Documents on File Type Date Recorded Patient Transfer Car Operator Expl anation ADVANCE DIRECTIVE 12/23/2021 2:49 PM Power of Automatic Beam Warper Tender-Medical ADVANCE DIRECTIVE 12/23/2021 2:49 PM Living [...] Agents on File Name Relationship Healthcare Agent [facility] Yunior Marques Daughter Health Care Agent Jimmie Marques Spouse First Alternate Health Care Agent Care Teams Signal Supervisor Relationship Specialty Start Date End Date Justen Gale MD [facility] [address] [place] [address] PCP - General 10/09/17 Liu Jerez MD Consulting Physician Gastroenterology 07/28/17 [place] [address] [facility] [address] [place] [address] Consulting Physician Pulmonary Disease 08/03/17 [place] [address] [place] [address] [address] [place] [address] Medical Oncologist/Fireboat Operator Medical Oncology 10/23/17 [place] [address] [facility] [address] [place] [address] Surgeon Orthopedic Surgery 10/23/17 [place] [address] [address] Consulting Physician Pain Management 10/23/17 [place] [address] [address] Referring Physician General Surgery 01/26/18 [place] [address] [facility] [address] [place] [address] Consulting Physician Neurology 01/26/18
--- OUTSIDE RECORDS SUMMARY | 2024-11-07 17:46 | XMS_ITS | Encounter Summary ---
Author Organization [facility] Address [address] [place] [address] Phone Care Team Providers Care Global Climate Change Analyst Name Role Phone Justen Gale MD Primary Care Provider David Roberts APRN, PESTICIDE CONTROL INSPECTOR Unavailable [phone] Annel Rod MD Unavailable Reason for Visit * Reason Comments Medication Refill Encounter Details Date Type Department Care Team (Late st Contact Info) Description 02/17/2021 Refill [facility] #2 [place] [id number] Justen Gale MD #[address] [address] Medication Refill Social History Tobacco Use Types [...] Mcgee 06/05/20 Office Visit Pili Elkins APRN, PESTICIDE CONTROL INSPECTOR [facility] Showing recent visits within past 365 days and meeting all other requirements Future Appointments Date Type Provider Dept 03/02/21 Appointment Vince Hermosillo MD [facility] Showing future appointments within next 90 days and meeting all other requirements documented in this encounter Plan of Treatment Upcoming Encounters Date Type Department Care Team (Late st Contact Info) Description 11/13/2024 2:00 PM CDT [facility] 1 [place] [address] Angelito Alegria APRN, PESTICIDE CONTROL INSPECTOR #[address] [address] Discharge Disposition: Discharged to home or Selfcare 11/19/2024 2:00 PM CDT Office Visit [facility] - Endocrinology [facility] #2 [place] [address] Annel Rod MD #2 [facility] [address] [place] [address] documented as of this encounter Visit Diagnoses Not on filedocumented in this encounter Additional Health Concerns Infection Onset Date Last Indicated Resolved Time COVID - 19 08/01/2024 08/01/2024 08/01/2024 3:20 PM CDT Assessment Noted Time PHQ-9 Depression Total Score: 0 07/21/19 3:00 PM CDT documented as of this encounter Care Teams Global Climate Change Analyst Relationship Specialty Start Date End Date Justen Gale MD #[address] [address] PCP - General Family Medicine 10/17/17 David Roberts APRN, PESTICIDE CONTROL INSPECTOR #2 [place] [address] Nurse Practitioner Advanced Practice Nurse 01/31/22 Annel Rod MD #[address] [address] Consulting Physician Endocrinology 07/01/22 documented as of this encounter
--- OUTSIDE RECORDS SUMMARY | 2024-11-07 17:46 | XMS_ITS ---
Author Organization [facility] Address [address] [place] [address] Care Team Providers Care Quality Control Head Name Role Phone Justen Gale MD Primary Care Provider [phone] Active Problems Problem Noted Date Diagnosed Date [...]
--- OUTSIDE RECORDS SUMMARY | 2024-11-07 17:46 | XMS_ITS | Clinical Summary ---
Author Organization [facility] Address [facility] [place] [address] Care Team Providers Care Paid Search Specialist Name Role Phone Meena Bansal MD Unavailable [phone] Justen Gale MD Primary Care Provider [phone] Allergies Active Allergy Reactions Criticality Noted Date [...] reflux disease 09/05/2020 Malignant tumor of breast ([facility]HCC [facility]) 08/22 Knee pain 09/05/2020 Other [...] 03/18/2018 Assessment & Plan (03/18/2018 2:55 AM RAMP BOSS): Acute, patient reported as epigastric pain however may be atypical presentation. Troponins negative x2. Also in differential is GERD, PUD - Admit to observation -Follow-up troponins -Monitor vitals -N.p.o. at midnight - Stress echo in a.m. - Consider cardiology consult based on results of stress test -Begin Protonix Epigastric pain 03/18/2018 Assessment & Plan (03/18/2018 5:39 AM RAMP BOSS): Acute, non radiating, worsens with lying down, [...] Speech impairment 01/30/2018 CVA (cerebral vascular accident) ([facility] HHS/ C) 01/24/2018 Neck pain on right side 12/01/2017 Anxiety and depression 11/12/2017 Chronic anticoagulation 11/09/2017 Constipation 11/09/2017 Uncontrolled type 2 diabetes mellitus with hyperglycemia, with long-term current use of insulin ([facility]) 11/06/2017 termination clerk (current) use 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 inhibitors 10/23/2017 Lumbosacral [...] upper- 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 ([facility] HHS/HCC) 10/17/2017 Assessment & Plan (08/31/2018 12:24 AM CDT): S/p masectomy. -continue exemestane Acute deep vein thrombosis ( DVT) of proximal vein of right lower extremity ([facility]) 10/17/2017 Dysuria 10/17/2017 Hyperthyroidism 10/17/2017 Cancer of overlapping sites of left female breast ([facility]) 10/13/2017 Syncope 09/29/2017 High blood pressure 08/22/2017 Overview (09/05/2020): Last Assessment & Plan: On lisinopril Last Assessment & Plan: On lisinopril Assessment & Plan (08/30/2018 9:57 PM CDT): Chronic. Controlled. -continue home medications Assessment & Plan (03/18/2018 2:51 AM RAMP BOSS): Chronic, BPs currently 127/78 - To new home meds Morbid obesity with BMI of 50.0-59.9, adult 04/2017 Sepsis ([facility]) 08/22/2017 Type 2 diabetes mellitus ([facility]) 08/22 Overview (09/05/2020): Last Assessment & Plan: Hold janument. Start on SSI and accucheks Assessment & Plan (08/30/2018 10:01 PM CDT): Chronic. Controlled. -continue home insulin regimen of lantus 50 units q am -lispro 20 units with breakfast and lunch. 22 units with dinner. Assessment & Plan (03/18/2018 2:53 AM RAMP BOSS): Chronic, patient reports medical compliance with 50 units of Lantus daily and 15 units of Humalog before meals. No recent HbA1c - Monitor POC glucose -[place] home regimen - Consider sliding scale insulin -Follow-up HbA1c Bronchitis 08/20/2017 LUL (obstructive sleep apnea) 08/01/2017 Assessment & Plan (03/18/2018 2:54 AM RAMP BOSS): Chronic, on CPAP at home - Continue home CPAP History of DVT (deep vein thrombosis) 08/01/2017 Assessment & Plan (03/18/2018 2:54 AM RAMP BOSS): Chronic - Continue home Xarelto Chest pressure 08/01/2017 Diet-controlled diabetes mellitus ([facility] HHS/H CC) 08/01/2017 History of pulmonary embolism 08/01/2017 Hyponatremia 08/01/2017 Positive blood culture 08/01/2017 Acute pharyngitis 07/27/2017 Generalized weakness 07/27/2017 Nausea and vomiting 07/26/2017 Overview (09/05/2020): Overview: Overview: Added automatically from request for surgery [id number] Overview: Added automatically from request for surgery [id number] Added automatically from request for surgery [id number] Neuropathy 07/05/2017 History of breast cancer 02/06/2017 Pulmonary embolism ([facility]) 08/09/2016 Overview (09/05/2020): Last Assessment & Plan: [...] syndrome Assessment & Plan (03/18/2018 2:54 AM RAMP BOSS): Chronic -Continue home ropinirole Pain of lower extremity 03/12/2013 Overview (09/05/2020): Leg pain Encounters Date Type Department Care Team Description 08/12/2024 4:41 PM CDT - 08/12/2024 7:[address] [facility] [place] [address] Marvin Brewer MD Urinary Symptoms Discharge Disposition: [...] In the past 12 months has e [employer], gas, oil, or water [employer] threatened to shut off services in your [...] Sexual Orientation Straight 03/18/2018 3: 01 AM RAMP BOSS Last Filed Vital Signs Vital Sign Reading [...] 08/12/2024 10:[address] [facility] [address] [place] [address] Test Date: 2024-08-12 Pat Name: MOHSEN SALAZAR Department: 41 Room: EXAM25 Gender: Female Pig Breeder: [id number] : 1955 Requested By: MARVIN BREWER Order Number: [id number] Reading MD: Meena Bansal Measurements Intervals [place] Rate: 82 P: -76 FL: 99 QRS: 30 QRSD: 86 T: 65 QT: 403 QTc: 472 Interpretive Statements JUNCTIONAL RHYTHM ABNORMAL RHYTHM ECG Compared to ECG 10/13/2023 01:02:35 Junctional rhythm now present Sinus rhythm no longer present Incomplete right bundle-branch block no longer present Myocardial infarct finding no longer present Procedure Note Meena Bansal MD - 08/12/2024 [facility] [address] [place] [address] Test Date: 2024-08-12 Pat Name: MOHSEN SALAZAR Department: 41 Room: EXAM25 Gender: Female Pig Breeder: [id number] : 1955 Requested By: MARVIN BREWER Order Number: [id number] Reading MD: Meena Bansal Measurements Intervals [place] Rate: 82 P: -76 FL: 99 QRS: 30 QRSD: 86 T: 65 QT: 403 QTc: 472 Interpretive Statements JUNCTIONAL RHYTHM ABNORMAL RHYTHM ECG Compared to ECG 10/13/2023 01:02:35 Junctional rhythm now present Sinus rhythm no longer present Incomplete right bundle-branch block no longer present Myocardial infarct finding no longer present us Marvin Brewer MD ECG ORDERABLES Final Result [facility] RAD * (ABNORMAL) COMPREHENSIVE METABOLIC PANEL (08/12/2024 4:49 PM CDT) GLUCOSE 293(H) 70 - 99 MG/DL 08/12/2024 5:33 PM CDT [facility] BUN 17 7 - 18 MG/DL 08/12/2024 5:33 PM CDT [facility] CREATININE S/P/B 0.84 0.55 - 1.02 MG/DL 08/12/2024 5:33 PM CDT [facility] SODIUM S/P/B 137 136 - 145 MMOL/L 08/12/2024 5:33 PM CDT [facility] POTASSIUM S/P/B 4.0 3.5 - 5.1 MMOL/L 08/12/2024 5:33 PM CDT [facility] CHLORIDE S/P/B 103 97 - 115 MMOL/L 08/12/2024 5:33 PM CDT [facility] CO2 27.7 21 - 32 MMOL/L 08/12/2024 5:33 PM CDT [facility] CALCIUM S/P/B 9.2 8.5 - 10.1 MG/DL 08/12/2024 5:33 PM CDT [facility] BILIRUBIN TOTAL S/P/B 0.4 0.2 - 1.2 MG/DL 08/12/2024 5:33 PM [facility] Comment: THIS ASSAY IS NOT RECOMMENDED FOR PATIENTS UNDERGOING TREATMENT WITH ELTROMBOPAG DUE TO THE POTENTIAL FOR FALSELY ELEVATED RESULTS. TOTAL PROTEIN S/P/B 8.1 6.4 - 8.2 G/DL 08/12/2024 5:33 PM T [facility] ALBUMIN S/P/B 3.2(L) 3.4 - 5.0 G/DL 08/12/2024 5:33 PM T [facility] AST 20 15 - 37 U/L 08/12/2024 5:33 PM [facility] ALT 29 14 - 55 U/L 08/12/2024 5:33 PM T [facility] ALKALINE PHOSPHATASE S/P/B 83 50 - 136 U/L 08/12/2024 5:33 PM T [facility] ANION GAP 6.3 2 - 10 MMOL/L 08/12/2024 5:33 PM [facility] BUN CREATININE RATIO 20.3 6 - 26 08/12/2024 5:33 PM [facility] A/G RATIO 0.7(L) 1.0 - 2.0 RATIO 08/12/2024 5:33 PM [facility] GFR ESTIMATE 76(L) >90 ML/MIN/1.7 3 M2 08/12/2024 5:33 PM [facility] Comment: NOTE: eGFR is not [...] [facility] Final Result [facility] [address] [place] [address], [place] [phone] * (ABNORMAL) CBC W/DIFF AUTOMATED (08/12/2024 4:49 PM CDT) Pathologist [facility] WBC 12.17(H) 4.5 - 11.0 x10'3/uL 08/12/2024 5:00 PM CDT [facility] RBC 4.58 4.20 - 5.40 x10'6/uL 08/12/2024 5:00 PM CDT [facility] HGB 13.3 12.0 - 16.0 G/DL 08/12/2024 5:00 PM CDT [facility] HCT 42.6 38.0 - 48.0 % 08/12/2024 5:00 PM CDT [facility] MCV 93.0 81.0 - 99.0 FL 08/12/2024 5:00 PM CDT [facility] MCH 29.0 27.0 - 31.0 PG 08/12/2024 5:00 PM CDT [facility] MCHC 31.2(L) 32.0 - 36.0 G/DL 08/12/2024 5:00 PM CDT [facility] RDW 13.3 11.5 - 14.5 % 08/12/2024 5:00 PM CDT [facility] PLT 290 130 - 400 x10'3/uL 08/12/2024 5:00 PM CDT [facility] MPV 9.8 9.3 - 12.2 FL 08/12/2024 5:00 PM CDT [facility] DIFFERENTIAL TYPE AUTOMATED DIFFERENTIAL 08/12/2024 5:00 PM CDT [facility] NEUTROPHILS % 67.7 % 08/12/2024 5:00 PM CDT [facility] LYMPHOCYTES % 21.2 % 08/12/2024 5:00 PM CDT [facility] MONOCYTES % 8.0 % 08/12/2024 5:00 PM CDT [facility] EOSINOPHILS 2.3 % 08/12/2024 5:00 PM CDT [facility] BASOPHILS 0.3 % 08/12/2024 5:00 PM CDT [facility] IMMATURE GRANS % 0.5 % 08/13/19 5:00 PM CDT [facility] ABS. NEUTROPHILS 8.24(H) 1.80 - 7.70 x10'3/uL 08/12/2024 5:00 PM CDT [facility] ABS. LYMPHOCYTES 2.58 1.00 - 4.80 x10'3/uL 08/12/2024 5:00 PM CDT [facility] ABS. MONOCYTES 0.97(H) 0.24 - 0.86 x10'3/uL 08/12/2024 5:00 PM CDT [facility] ABS. EOSINOPHILS 0.28 0.04 - 0.36 x10'3/uL 08/12/2024 5:00 PM CDT [facility] ABS. BASOPHILS 0.04 0.01 - 0.08 x10'3/uL 08/12/2024 5:00 PM CDT [facility] ABS. IMMATURE GRANULOCYTES 0.06 0.00 - 0.49 x10'3/uL 08/12/2024 5:00 PM CDT [facility] 08/12/2024 4:49 PM CDT us [facility] Final Result [facility] [address] [place] [address], [place] [phone] * (ABNORMAL) URINALYSIS (08/12/2024 4:48 PM CDT) SPECIMEN TYPE URINE CLEAN CATCH 08/12/2024 4:48 PM CDT [facility] COLOR (U) LIGHT YELLOW 08/12/2024 5:07 PM CDT [facility] TRANSPARENCY CLEAR 08/12/2024 5:07 PM CDT [facility] SPECIFIC GRAVITY (U) 1.016 1.001 - 1.030 08/12/2024 5:07 PM CDT [facility] U PH 6.0 5.0 - 9.0 08/12/2024 5:07 PM CDT [facility] LEUKOCYTES (U) NEGATIVE NEGATIVE 08/12/2024 5:07 PM CDT [facility] NITRITES NEGATIVE NEGATIVE 08/12/2024 5:07 PM CDT [facility] PROTEIN RANDOM (U) NEGATIVE <30 MG/DL 08/12/2024 5:07 PM CDT [facility] GLUCOSE (U) 1000(A) NORMAL MG/DL 08/12/2024 5:07 PM CDT [facility] KETONES MG/DL (U) NEGATIVE NEGATIVE MG/DL 08/12/2024 5:07 PM CDT [facility] UROBILINOGEN NORMAL NORMAL MG/DL 08/12/2024 5:07 PM CDT [facility] BILIRUBIN (U) NEGATIVE NEGATIVE MG/DL 08/12/2024 5:07 PM CDT [facility] BLOOD (U) NEGATIVE NEGATIVE 08/12/2024 5:07 PM CDT [facility] URINE SPECIMEN OBTAINED BY CLEAN CATCH PROCEDURE / Unknown 08/12/2024 4:48 PM CDT us [facility] URINE ORDERABLES Final Result Performing Organization Address City/[facility]/ZIP Co de Phone Number [facility] [address] [place] [address], * (ABNORMAL) HEMOGLOBIN, GLYCOSYLATED (10/14/2023 3:40 AM CDT) HGB A1C 8.0(H) <5.7 % 10/14/2023 5:50 AM CDT [facility] Comment: ADA GUIDELINES 2010 5.7 TO 6.4% INCREASED RISK OF DIABETES > OR = 6.5% CONSISTENT WITH DIABETES ESTIMATED AVG GLUCOSE 183 mg/dL 10/14/2023 5:50 AM CDT [facility] 10/14/2023 3:40 AM CDT us Peggy Bland MD LABORATORY Final Result Performing Organization Address [facility]/ZIP Co de Phone Number [facility] [address] [place] [address], * LIPID PANEL (10/14/2023 3:40 AM CDT) CHOLESTEROL 164 <200 MG/DL 10/14/2023 4:31 AM CDT [facility] TRIGLYCERIDES 114 <150 MG/DL 10/14/2023 4:31 AM CDT [facility] HDL 46 >40.0 MG/DL 10/14/2023 4:31 AM CDT [facility] LDL (CALCULATED) 95 <100 MG/DL 10/14/19 4:31 AM CDT [facility] NON HDL CHOLESTEROL 118 <130 MG/DL 10/13 4:31 AM CDT [facility] CHOL/HDL RATIO 3.6 0.0 - 4.5 10/14/2023 4:31 AM CDT [facility] VLDL CALCULATION 23 5 - 55 MG/DL 10/14/2023 4:31 AM CDT [facility] LIPID INTERPRETATION 10/14/2023 4:31 AM CDT [facility] Comment: NIH CONCENSUS REPORT RECOMMENDATIONS: ADULT CHILD LOW RISK: CHOLESTEROL <200 <170 TRIGLYCERIDE <150 --- HDL >=60 --- LDL <100 <110 BORDERLINE: CHOLESTEROL 200-239 170-199 TRIGLYCERIDE 150-199 --- HDL 40-59 --- LDL 100-159 110-129 HIGH RISK: CHOLESTEROL >=240 >=200 TRIGLYCERIDE >=200 --- HDL <40 --- LDL >=160 >=130 10/14/2023 3:40 AM CDT Peggy Bland MD LABORATORY Final Result [facility] [address] [place] [address], from Last 3 Months or Most Recently Relevant to Health Maintenance Insurance [facility] MEDICAID [facility] Advance Directives * Full Code (Latest [...] 2:42 AM 03/18/2018 4:50 PM Care Teams Paid Search Specialist Relationship Specialty Start Date End Date Justen Gale MD [facility] [address] [place] [address] PCP - General FAMILY PRACTICE 08/20/17 Meena Bansal MD [address] [phone] [employer] Tender CARDIOVASCULAR DISEASE 04/24/16
--- OUTSIDE RECORDS SUMMARY | 2024-11-07 17:46 | XMS_ITS | Clinical Summary ---
Author Organization [facility] Address [address] [place] [address] Phone Care Team Providers Care Used Car Sales Manager Name Role Phone Justen Gale MD Primary Care Provider [phone] Allergies Active Allergy Reactions Criticality Noted Date [...] - 6.0 % 09/29/2017 10:28 AM CDT [employer] [facility] EST. AVG GLUCOSE, A1C 186 mg/dL 09/29/2017 10:28 AM CDT [employer] [facility] Blood Venipuncture / Unknown 09/28/2017 8:41 PM CDT 09/28/2017 8:[address] [facility] - 09/29/2017 10:28 AM CDT HGB A1C INTERPRETATION NORMAL: <5.7% PRE-DIABETES: 5.7 - 6.4% DIABETES: 6.5% OR GREATER us Francisco Castaneda MD CHEMISTRY ORDERABLES Final Resul t [facility] [employer] [facility]# [id number] [address] [facility] [place] [place] [address] * (ABNORMAL) LIPID PANEL (09/28/2017 8:41 PM CDT) CHOLESTEROL 174 <200 mg/dL 09/30/2017 2:[address] [facility] [employer] [facility] TRIGLYCERIDE 109 <150 mg/dL 09/30/2017 2:[address] [facility] [employer] [facility] HDL 45 40 - 59 mg/dL 09/30/2017 2:[address] [facility] [employer] [facility] LDL CALCULATED 107(H) <100 mg/dL 09/30/2017 2:[address] [facility] [employer] [facility] NON-HDL CHOLESTEROL 129 <130 mg/dL 09/30/2017 2:[address] [facility] [employer] [facility] Blood Venipuncture / Unknown 09/28/2017 [...] Castaneda MD CHEMISTRY ORDERABLES Final Resul t [facility] [id number] [address] [facility] [place] [address] from Last 3 Months or Most Recently Relevant to Health Maintenance Insurance Advance Directives For more information, please contact: [phone] * Full Code (Latest Code Status on File) Date Activated Date Inactivated Comments 09/29/2017 7:45 AM 09/30/2017 9:14 PM * Full Code Date Activated Date Inactivated Comments 09/29/2017 1:25 AM 09/29/2017 7:45 AM Care Teams Used Car Sales Manager Relationship Specialty Start Date End Date Justen Gale MD [address] [facility] [address] [place] [address] PCP - General Cardiovascular Disease 09/14/17
--- OUTSIDE RECORDS SUMMARY | 2024-11-07 17:46 | XMS_ITS | Referral Summary ---
Author Organization [facility] Address [address] [place] [address] Care Team Providers Care Machine Stone Polisher Apprentice Name Role Phone Liu Jerez MD Unavailable Albert Corbin MD Unavailable [phone] Justen Gale MD Primary Care Provider Khris Arthur MD Unavailable [phone] Ko Melendez MD Unavailable [phone] John Paul Moyer MD Unavailable Annel Rod MD Unavailable Anali MARSHALL MD, Carlos M. 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) use 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 inhibitors 10/17/2019 [...] long-term current use of insulin ([facility]) 10/23/2017 Assessment & Plan (10/23/2017 [...] 10/13/2017 Assessment & Plan (05/22/2024 12:29 PM ELECTRONIC CONSOLE DISPLAY OPERATOR): -Hx stage II, ER positive, HER2 [...] 08/01/2017 Assessment & Plan (05/22/2024 12:33 PM ELECTRONIC CONSOLE DISPLAY OPERATOR): -Hx LUL -Hospital provided CPAP ordered History of DVT (deep vein thrombosis) 08/01/2017 History of pulmonary embolism 08/01/2017 Generalized weakness 07/27/2017 Dyspnea 07/27/2017 Unintentional weight loss 07/27/2017 Acute cystitis without hematuria 07/27/2017 Nausea and vomiting 07/26/2017 Overview (07/28/2017): Added automatically from request for surgery [id number] Pulmonary embolism 08/09/2016 Assessment & Plan (10/23/2017 2:05 AM CDT): On Rivaroxaban Lymphedema of left upper extremity 08/09/2016 Assessment & Plan (05/25/2024 7:53 AM ELECTRONIC CONSOLE DISPLAY OPERATOR): S/p L axillary lymph node dissection [...] syndrome Assessment & Plan (05/22/2024 11:18 AM ELECTRONIC CONSOLE DISPLAY OPERATOR): -continue home Requip 5mg nightly Pain of lower extremity 03/12/2013 Overview (07/29/2016): Leg pain Essential hypertension Assessment & Plan (05/23/2024 10:42 AM ELECTRONIC CONSOLE DISPLAY OPERATOR): -Chart history of HTN but not on meds -BP elevated on admission, likely some pain contributing -Monitor closely once pain under adequate control, discussed following up with PCP for this Chronic anticoagulation Restless leg syndrome 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 More than 4 times [...] on file Legal Sex Female 12:24 AM ELECTRONIC CONSOLE DISPLAY OPERATOR Gender Identity Not on file Sexual [...] CDT HEMOGLOBIN A1C STAT 05/21/2024 4:20 PM ELECTRONIC CONSOLE DISPLAY OPERATOR LIPID PANEL STAT 05/21/2024 4:20 PM ELECTRONIC CONSOLE DISPLAY OPERATOR DEXA AXIAL SKELETON BONE DENSITY 1 [...] was last reviewed 2021. Testing performed by: [facility], [address] [place] [address]., [id number] Blood 07/01/2024 2:02 PM CDT 07/01/2024 2:12 PM CDT us Ilana Stevens MD LAB BLOOD ORDERABLES F inal Result MARY JANE [address] [facility] Department [place] [address] * (ABNORMAL) Hemoglobin A1c (05/21/2024 4:20 PM ELECTRONIC CONSOLE DISPLAY OPERATOR) Hgb A1C 8.7(H) 4.0 - 5.6 [...] a fasting glucose. Blood 05/21/2024 4:20 PM ELECTRONIC CONSOLE DISPLAY OPERATOR 05/21/2024 4:55 PM ELECTRONIC CONSOLE DISPLAY OPERATOR us Leo Henry MD LAB BLOOD ORDERABLES Final Result [facility] [place] [address] * (ABNORMAL) Lipid panel (05/21/2024 4:20 PM ELECTRONIC CONSOLE DISPLAY OPERATOR) Cholesterol 205(H) 30 - 199 mg/dL [...] on 2017. Triglycerides 92 <=149 mg/dL [facility] Comment: Interpretive Data Ages < [...] revised on 2017. Chol/HDL ratio 4 [facility] Blood 05/21/2024 4:20 PM ELECTRONIC CONSOLE DISPLAY OPERATOR 05/21/2024 4:50 PM ELECTRONIC CONSOLE DISPLAY OPERATOR Narrative MARY JANE [facility] - 05/22/2024 4:17 PM ELECTRONIC CONSOLE DISPLAY OPERATOR Reflex us Leo Henry MD LAB BLOOD ORDERABLES Final Result [facility] [place] [address] * Dexa Axial Skeleton Bone Density 1 or 2 Site (08/02/2022 10:53 AM CDT) Anatomical Region Laterality Modality Body N/A Radiographic Lizeth ging Narrative 08/02/2022 3:34 PM CDT Patient Name: Karly Marques Date of : 1955 Date of scan: 08/02/2022 Bone mineral density was performed on a [employer] Discovery Densitometer. Based on machine cross-calibration [...] mineral density scan were prepared by Yesenia Hernnadez) MARY who is accredited by the International Society of Clinical Densitometry. The overall patient assessment and scan interpretation were performed by Kaylie Castro MD who is certified by the International Society of Clinical Densitometry. [id number] Khris Arthur MD [facility] DXA PROCEDURES F inal Result * COLONOSCOPY [...] this written report and agrees with it. [facility]# Date Time Exam [id number] Aug 19, 2016 14:27:00 [facility] [id number] Diag Mamm, inc CAD, unilat L Technologist(s): Carla Harris; ; [id number] Aug 19, 2016 15:39:00 [facility] [id number] Breast US unilateral, ltd L [facility]# Date Time Exam [id number] Aug 19, 2016 14:27:00 [facility] [id number] Diag Mamm, inc CAD, unilat L Technologist(s): Carla Harris; ; [id number] Aug 19, 2016 15:39:00 [facility] [address] Breast US unilateral, ltd L EXAMINATION: LEFT [...] SARABIA M.D. on Aug 19 2016 4:20P [id number] Procedure Note Miscellaneous, Not In File / Provider, Historical, MD - 09/17/2016 ANTHONY SARABIA M.D. JUDY RINCON M.D. FINAL REPORT The radiology attending physician has personally reviewed this study, and has reviewed and/or edited this written report and agrees with it. [facility]# Date Time Exam [id number] Aug 19, 2016 14:27:00 [facility] [address] Diag Mamm, inc CAD, unilat L Technologist(s): Carla Harris; ; [id number] Aug 19, 2016 15:39:00 [facility] [address]164 Breast US unilateral, ltd L ACC# Date Time Exam [id number] Aug 19, 2016 14:27:00 [facility] [address] Diag Mamm, inc CAD, unilat L Technologist(s): Carla Harris; ; [id number] Aug 19, 2016 15:39:00 C 31704 Breast US unilateral, ltd L EXAMINATION: LEFT [...] SARABIA M.D. on Aug 19 2016 4:20P [id number] us Not In File Miscellaneous IMG MAMMO PROCEDURES F inal Result from Last 3 Months or Most Recently Relevant to Health Maintenance Insurance [facility] MEDICARE ADVANTAGE [facility] MEDICARE ADVANTAGE [employer] MEDICARE ADVANTAGE Advance Directives For more information, please contact: [phone] Documents on File Type Date Recorded Patient Protection Consultant Expl anation ADVANCE DIRECTIVE 12/23/2021 2:49 PM Power of Skylights Assembler-Medical ADVANCE DIRECTIVE 12/23/2021 2:49 PM Living Will [...] First Alternate Health Care Agent Care Teams Machine Stone Polisher Apprentice Relationship Specialty Start Date End Date Justen Gale MD 2 [facility] [address] [place] [address] PCP - General 10/09/17 Liu Jerez MD Consulting Physician Gastroenterology 07/28/[address] [place] [address] [facility] [address] [place] [address] Consulting Physician Pulmonary Disease 08/03/17 Khris Arthur MD [address] [facility] [address] [place] [address] Medical Oncologist/Cookie Mixer Helper Medical Oncology 10/23/[address] [place] [address] [facility] [address] [place] [address] Surgeon Orthopedic Surgery 10/23/17 [place] [address] [facility] [address] [place] [address] Consulting Physician Pain Management 10/23/17 [place] [address] [facility] [address] [place] [address] Referring Physician General Surgery 01/26/18 [place] [address] [facility] [address] [place] [address] Consulting Physician Neurology 01/26/18
--- OUTSIDE RECORDS SUMMARY | 2024-11-07 17:46 | XMS_ITS ---
Author Organization [facility] Address [address] [place] [address] Care Team Providers Care Male Infertility Specialist Name Role Phone Liu Jerez MD Unavailable Albert Corbin MD Unavailable [phone] Justen Gale MD Primary Care Provider Khris Arthur MD Unavailable [phone] Ko Melendez MD Unavailable John Paul Moyer MD Unavailable [phone] Annel Rod MD Unavailable Anali MARSHALL MD, Carlos M. Unavailable [phone] Active Problems Problem Noted Date Diagnosed Date Urinary tract infection 05/22/2024 Assessment & Plan (05/26/2024 10:08 AM BRANCH OFFICER): Presenting with urinary symptoms of right flank [...] 05/22/2024 Assessment & Plan (05/25/2024 7:52 AM BRANCH OFFICER): Hx of breast cancer c/b DVT/bilateral Pes [...] 05/22/2024 Assessment & Plan (05/22/2024 1:14 PM BRANCH OFFICER): -long-standing chronic back pain -CT L spine [...] complication, without long-term current use of insulin ([facility]) 10/23/2017 [...] 10/13/2017 Assessment & Plan (05/22/2024 12:29 PM BRANCH OFFICER): -Hx stage II, ER positive, HER2 negative [...] 08/01/2017 Assessment & Plan (05/22/2024 12:33 PM BRANCH OFFICER): -Hx LUL -Hospital provided CPAP ordered History of DVT (deep vein thrombosis) 08/01/2017 History of pulmonary embolism 08/01/2017 Generalized weakness 07/27/2017 Dyspnea 07/27/2017 Unintentional weight loss 07/27/2017 Acute cystitis without hematuria 07/27/2017 Nausea and vomiting 07/26/2017 Overview (07/28/2017): Added automatically from request for surgery [id number] Pulmonary embolism 08/09/2016 Assessment & Plan (10/23/2017 2:05 AM CDT): On Rivaroxaban Lymphedema of left upper extremity 08/09/2016 Assessment & Plan (05/25/2024 7:53 AM BRANCH OFFICER): S/p L axillary lymph node dissection 2014, [...] syndrome Assessment & Plan (05/22/2024 11:18 AM BRANCH OFFICER): -continue home Requip 5mg nightly Pain of lower extremity 03/12/2013 Overview (07/29/2016): Leg pain Essential hypertension Assessment & Plan (05/23/2024 10:42 AM BRANCH OFFICER): -Chart history of HTN but not on meds -BP elevated on admission, likely some pain contributing -Monitor closely once pain under adequate control, discussed following up with PCP for this Chronic anticoagulation Restless leg syndrome 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
--- OUTSIDE RECORDS SUMMARY | 2024-11-07 17:46 | XMS_ITS | Encounter Summary ---
Author Organization [facility] Address [address] [place] [address] Phone Care Team Providers Care Home Appliance Tech Name Role Phone Justen Gale MD Primary Care Provider David Roberts APRN, FBI SPECIAL AGENT Unavailable [phone] Annel Rod MD Unavailable Reason for Visit * Reason Onset Date Comments Medication Refill 11/06/2024 Encounter Details Date Type Department Care Team (Late st Contact Info) Description 11/06/2024 MyChart RX Renewal [facility] [place] #2 [place] [address] Justen Gale MD #[address] [address] Medication Renewal Declined Social History Tobacco Use Types Packs/Day Years Used Date Smoking Tobacco: Never Smokeless Tobacco: Never Alcohol Use Standard Drinks/Week Comments No 0 (1 standard drink = 0.6 oz pur e alcohol) [facility] Utilities Answer Date Recorded In the past 12 months has [employer], gas, oil, or water company threatened [...] you attend chur ch or temple services? More than 4 times per year [...] Total Score - Questions 1-9 0 07/23 [facility] - [...] any time in the past 12 m [facility], were you homeless or living [...] 09/06/24 Office Visit Dulce Wolff APRN, NETTA [facility] [place] 08/20/24 Office Visit [facility] 08/07/24 [facility] Visit [facility]leg[facility]24 Office Visit Angelito Alegria APRN, CNP [facility] [place] 01/17/24 [facility]/08/23 Office Visit Justen Gale MD [facility] Showing recent visits within past 365 [...] [facility] 1 [place] [address] Angelito Alegria APRN, NETTA #[address] [address] Discharge Disposition: Discharged to home or Selfcare 11/19/2024 2:00 PM CDT Office Visit [facility] - Endocrinology [facility] #2 [place] [address] Annel Rod MD #[address] [address] documented as of this encounter Visit Diagnoses Not on filedocumented in this encounter Additional Health Concerns Assessment Noted Time PHQ-9 Depression Total Score: 0 08/02/19 25 1:09 PM CDT documented as of this encounter Care Teams Home Appliance Tech Relationship Specialty Start Date End Date Justen Gale MD #[address] [address] PCP - General Family Medicine 10/17/17 David Roberts APRN, FBI SPECIAL AGENT #2 [place] [address] Nurse Practitioner Advanced Practice Nurse 01/31/22 Annel Rod MD #[address] [address] Consulting Physician Endocrinology 07/01/22 documented as of this encounter
--- OUTSIDE RECORDS SUMMARY | 2024-11-07 17:46 | XMS_ITS | Encounter Summary ---
Author Organization [facility] Address [address] [place] [address] Phone Care Team Providers Care Legal Project Manager Name Role Phone Justen Gale MD Primary Care Provider David Roberts APRN, PIANO TECHNICIAN Unavailable [phone] Annel Rod MD Unavailable Reason for Visit * Reason Onset Date Comments Sore Throat 06/29/2020 Encounter Details Date Type Department Care Team (Late st Contact Info) Description 06/29/2020 Telephone [facility] #[address] [place] [address] Justen Gale MD #[address] [address] Sore Throat Social History Tobacco Use Types [...] COVID-19? No / Unsure 06/29/2020 8:43 AM MEDICAL ASSISTANT SUPERVISOR documented as of this encounter Miscellaneous Notes * Telephone Encounter - Gail Lucero RN - 06/29/2020 3:53 PM CST Attempted to call mailbox is full. Pt does not need testing CAL ASSISTANT SUPERVISOR * Telephone Encounter - Vince Hermosillo MD - 06/29/2020 3:13 PM CST No covid testing needed. If the er thought that it was warranted then they would have done this. CAL ASSISTANT SUPERVISOR * Telephone Encounter - Marlys Sorensen RN - 06/29/2020 8:36 AM CST Patient calling. Patient is calling to schedule Hospital/ED/Prompt-Care follow up appointment. Hospital/ED/Prompt-Care Site: [facility] ED Records Requested: Yes Reason for [...] f/up and yearly PAP appointments? Please advise. CAL ASSISTANT SUPERVISOR documented in this encounter Plan of Treatment Upcoming Encounters Date Type Department Care Team (Late st Contact Info) Description 11/13/2024 2:00 PM CDT [facility]ointment [facility] Cardiology Services 1 [place] [address] Angelito Alegria APRN, PIANO TECHNICIAN #2 [facility] [address] [place] [address] Discharge Disposition: Discharged to home or Selfcare 11/19/2024 2:00 PM CDT Office Visit [facility] - Endocrinology - [place] #2 [place] [address] Annel Rod MD #2 [facility] [address] [place] [address] documented as of this encounter Visit Diagnoses Not on filedocumented in this encounter Additional Health Concerns Infection Onset Date Last Indicated Resolved Time COVID - 19 08/01/2024 08/01/2024 08/01/2024 3:20 PM CDT Assessment Noted Time PHQ-9 Depression Total Score: 0 09/08/19 19 1:00 PM CDT documented as of this encounter Care Teams Legal Project Manager Relationship Specialty Start Date End Date Justen Gale MD #2 [facility] [address] [place] [address] PCP - General Family Medicine 10/17/17 David Roberts APRN, PIANO TECHNICIAN #2 [place] [address] Nurse Practitioner Advanced Practice Nurse 01/31/22 Annel Rod MD #2 [facility] [address] [place] [address] Consulting Physician Endocrinology 07/01/22 documented as of this encounter
--- OUTSIDE RECORDS SUMMARY | 2024-11-07 17:46 | XMS_ITS | Encounter Summary ---
Author Organization [facility] Address [address] [place] [address] Phone Care Team Providers Care Porcelain Slusher Name Role Phone Justen Gale MD Primary Care Provider David Roberts APRN, INSPECTOR SCREEN PRINTING Unavailable Annel Rod MD Unavailable Reason for Visit * Reason Comments Medication Refill Encounter Details Date Type Department Care Team (Late st Contact Info) Description 02/07/2020 Refill [facility] [address] [facility] [place] [address] Justen Gale MD #[address] [address] Medication Refill Social History Tobacco Use Types [...] [facility] 1 [place] [address] Angelito Alegria APRN, INSPECTOR SCREEN PRINTING #[address] [address] Discharge Disposition: Discharged to home or Selfcare 11/19/2024 2:00 PM CDT Office Visit [facility] - Endocrinology [facility] #2 [place] [address] Annel Rod MD #[address] [address] documented as of this encounter Visit Diagnoses Not on filedocumented in this encounter Additional Health Concerns Infection Onset Date Last Indicated Resolved Time COVID - 19 08/01/2024 08/01/2024 08/01/2024 3:20 PM CDT Assessment Noted Time PHQ-9 Depression Total Score: 0 09/08/19 1:00 PM CDT documented as of this encounter Care Teams Porcelain Slusher Relationship Specialty Start Date End Date Justen Gale MD #[address] [address] PCP - General Family Medicine 10/17/17 David Roberts APRN, NETTA #2 [facility] [place] [address] Nurse Practitioner Advanced Practice Nurse 01/31/22 Annel Rod MD #[address] [address] Consulting Physician Endocrinology 07/01/22 documented as of this encounter
--- OUTSIDE RECORDS SUMMARY | 2024-11-07 17:46 | XMS_ITS | Encounter Summary ---
Author Organization [facility] Address [address] [place] [address] Phone Care Team Providers Care Mid Level Developer Name Role Phone Justen Gale MD Primary Care Provider David Roberts APRN, SHEET IRONWORKER Unavailable [phone] Annel Rod MD Unavailable Reason for Visit * Reason Comments Medication Refill Encounter Details Date Type Department Care Team (Late st Contact Info) Description 03/13/2021 Refill [facility] [address] [place] [address] Justen Gale MD #[address] [address] Medication Refill Social History Tobacco [...] COVID-19? No / Unsure 03/02/2021 5:05 PM MATERIALS SCIENTIST documented as of this encounter Plan of Treatment Upcoming Encounters Date Type Department Care Team (Late st Contact Info) Description 11/13/2024 2:00 PM CDT Appointment [facility] Cardiology Services 1 [place] [address] Angelito Alegria, PACK WORKER, SHEET IRONWORKER #2 [facility] [address] [place] [address] Discharge Disposition: Discharged to home or Selfcare 11/19/2024 2:00 PM CDT Office Visit [facility] - Endocrinology [facility] #2 [place] [address] Annel Rod MD #2 [facility] [address] [place] [address] documented as of this encounter Visit Diagnoses [...] End Date Justen Gale MD #[address] [address] PCP - General Family Medicine 10/17/17 David Roberts APRN, SHEET IRONWORKER #2 [place] [address] Nurse Practitioner Advanced Practice Nurse 01/31/22 nAnel Rod MD #2 [place] [phone] Consulting Physician Endocrinology 07/01/22 documented as of this encounter
--- OUTSIDE RECORDS SUMMARY | 2024-11-07 17:46 | XMS_ITS | Clinical Summary ---
Author Organization [facility] Address [address] [facility] [place] [address] Care Team Providers Care Gizzard Skin Remover Name Role Phone Justen Gale MD Primary Care Provider [phone] Source Comments [facility] Affiliates and Associated Physician Practices is amultiple site organization consisting of ambulatory clinics and hospital sitesin [place], [place], [place] and [place]. This disclosure is being madepursuant to the Care Everywhere program and may not contain all information available regarding this patient. Last updated 18.[facility] [place] [facility] Allergies Active Allergy Reactions Criticality Noted Date [...] Gluc Sensor (FreeStyle Eileen 2 Sensor Systm) [facility] APPLY 1 SENSOR AND WEAR FOR 14 [...] Team Description 08/14/2024 Results [place] [address] Josué Bernal PA-C 08/13/2024 Telephone ER at [facility] [address] [place] [address] Jordana Abdul MD ER UC Follow-up 08/09/2024 6:46 PM CDT - 08/09/2024 9:35 PM CDT Emergency ER at [address] [id number] Yasmin Matthew DO Shortness of breath; Strep [...] hard 05/16/2023 [facility] [place] of Occupat ional Health - Occupational Stress [...] a care home (including now)? 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 Gender Identity Not on file Sexual Orientation [...] this topic Medical Devices Implanted Type Area Truss Assembler Device Identifier Shelf Expiration Date Model / Serial / Lot Lead Nrstm 60cm Penta 3mm Pdl 16 Chnl Implanted:Qt y: 1 on 09/16/2021 by Maix Gregg MD at [facility] Right: Spine Thoracic Advanced [employer] [id number] / / Description:CAMILO Slnt Dura Duraseal Pg Trilysine Amine 5 Implanted:Qt y: 1 on 09/16/2021 by Maxi Gregg MD at [facility] Right: Spine Thoracic [employer] David [id number] / / Description:CAMILO Proclaim Plus 5 Implanted:Qt y: 1 on 02/16/2023 by Maxi Gregg MD at [facility] Left: Back Cardenas Spine [id number] 11/07/2024 3670 / [id number] / Explanted Type Area Truss Assembler Device Identifier Shelf Expiration Date Model / Serial / Lot Gntr Nrstm [id number] Proclaim Elt Implanted:Qty: 1 on 09/16/2021 by Maxi Gregg MD at [facility] Explanted:Qty: 1 on 10/30/2021 by Maxi Gregg MD at [facility] Right: Spine Thoracic [employer] [...] 08/09/2024 8:46 PM CDT [facility] Specific [place] UA 1.014 1.005 - 1.030 08/09/2024 8:46 [...] 5 # /hpf 08/09/2024 8:46 PM CDT [facility] Bacteria UA Trace(A) None Seen 08/09/2024 8:46 PM CDT [facility] Squamous Epithelial Cells None Seen 0 - 5 /hpf 08/09/2024 8:46 PM CDT [facility] Mucus UA 1+ /LPF 08/09/2024 8:46 PM CDT [facility] Urine URINE SPECIMEN OBTAINED BY CLEAN CATCH PROCEDURE / Unknown 08/09/2024 8:39 PM CDT 08/09/2024 8:39 PM CDT Narrative [facility] - 08/09/2024 8:46 PM CDT Yasmin Matthew DO LAB - URINALYSIS ORDERABLES Final Result Performing Organization Address City/State/[facility] Co de Phone Number [facility] [address] [place] [address] * (ABNORMAL) CULTURE URINE (08/09/2024 8:39 PM CDT) [facility] Culture Urine 50,000-100,000 CFU/mL Escherichia coli(A) TERRANCE 08/12/2024 4:04 AM CDT [facility] Culture Urine 10,000-50,000 CFU/mL urogenital evelio TERRANCE 08/12/2024 4:04 AM CDT [facility] Urine URINE SPECIMEN OBTAINED BY CLEAN CATCH PROCEDURE / Unknown 08/09/2024 8:39 PM CDT 08/09/2024 8:39 PM CDT Narrative [facility] - 08/12/2024 4:04 AM [...] LAB - MICROBIOLOGY ORDERABLE S Final Result [facility] [address] [facility] [place], [place] [address], [place] [phone] * SARS-COV-2 (COVID-19) FLU A/B RSV PCR RAPID (08/09/2024 7:40 PM CDT) [facility] COVID-19 PCR Not detected Not detected 08/10/19 8:24 PM CDT [facility] Influenza A PCR Not detected Not detected 08/09/2024 8:24 PM CDT [facility] Influenza B PCR Not detected Not detected 08/09/2024 8:24 PM CDT [facility] RSV PCR Not detected Not detected 08/09/2024 8:24 PM CDT [facility] Microbiology SPECIMEN FROM NASOPHARYNGEAL STRUCTURE / Unknown Collection / Unknown 08/09/2024 7:40 PM CDT 08/09/2024 7:40 PM CDT Narrative [facility] - 08/09/2024 8:24 PM [...] ORDERABLE S Final Result Performing Organization Address [facility] Co de Phone Number [facility] [address] [place] [phone] * (ABNORMAL) STREP A SCREEN DIRECT W RFLX STREP A CULTURE (08/09/2024 7:40 PM CDT) [facility] Strep A Rapid Positive(A ) Negative 08/09/2024 7:53 PM CDT [facility] Microbiology ENTIRE THROAT (SURFACE REGION OF NECK) / Unknown Collection / Unknown 08/09/2024 7:40 PM CDT 08/09/2024 7:40 PM CDT Yasmin Vipul LAB - MICROBIOLOGY ORDERABLE S Final Result Performing Organization Address [facility] de Phone Number [facility] [address] [place] [address] * EKG 12-LEAD (08/09/2024 7:06 PM CDT) Ventricular Rate 86 BPM [facility] Atrial Rate 86 BPM [facility] P-R Interval 122 ms [facility] QRS Duration ms 86 ms [facility] Q-T Interval ms 370 ms [facility] QTC Calculation (Bezet) 442 ms [facility] Calculated R [place] 8 degrees [facility] Calculated T [place] 51 degrees [facility] Interpretation EKG NORMAL SINUS RHYTHM WITH SINUS ARRHYTHMIA SEPTAL INFARCT , AGE UNDETERMINED ABNORMAL ECG WHEN COMPARED WITH ECG OF 09-AUG-2024 13:34, SINUS RHYTHM HAS REPLACED ECTOPIC ATRIAL RHYTHM SEPTAL INFARCT IS NOW PRESENT Confirmed by Gil Perrin MD ([id number]) on 08/10/2024 9:03:52 AM [facility] M[facility] 08/09/2024 7:06 PM CDT 08/10/2024 9:03 AM CDT Josué Bernal PA-C ECG ORDERABLES Edited Re sult - Final Performing Organization Address City/[facility]/ZIP Co de Phone Number [facility] * TROPONIN-I HIGH SENSITIVE REFLEX 1HOUR (08/09/2024 3:29 PM CDT) [facility] Troponin I High Sensitive 5 <=14 ng/L 08/09/2024 4:50 PM CDT [facility] Delta Troponin I HS 08/09/2024 4:50 PM CDT [facility] Comment:Delta value intentio yissel not calculated. Baseline to 1 hour specimen collection interval exceeded. Blood BLOOD SPECIMEN / Unknown Venipuncture / Unknown 08/09/2024 3:29 PM CDT 08/09/2024 3:33 PM CDT Josué Bernal PA-C LAB - CHEMISTRY ORDERABLE S Final Result Performing Organization Address [facility] Co de Phone Number [facility] [address] [place] [address] * XR CHEST 2VW (08/09/2024 1:59 PM [...] BASELINE + 1HR (08/09/2024 1:40 PM CDT) [facility] Troponin I High Sensitive 6 <=14 ng/L 08/09/2024 2:14 PM CDT [facility] Blood BLOOD SPECIMEN / Unknown Venipuncture / Unknown 08/09/2024 1:40 PM CDT 08/09/2024 1:43 PM CDT Josué Bernal PA-C LAB - CHEMISTRY ORDERABLE S Final Result [facility] [address] [place] [address] * (ABNORMAL) CBC W AUTO DIFFERENTIAL (08/09/2024 1:40 PM CDT) [facility] WBC 15.6(H) 4.0 - 10.7 x10E9/L 08/09/2024 1:47 PM CDT [facility] RBC Count 4.44 3.90 - 5.20 x10E12/L 08/09/2024 1:47 PM CDT [facility] Hemoglobin 13.0 11.9 - 15.8 g/dL 08/09/2024 1:47 PM CDT [facility] Hematocrit 40.4 34.8 - 46.1 % 08/09/2024 1:47 PM CDT [facility] MCV 91.0 80.0 - 98.0 fL 08/09/2024 1:47 PM CDT [facility] MCH 29.3 26.7 - 33.6 pg 08/09/2024 1:47 PM CDT [facility] MCHC 32.2 31.7 - 36.3 g/dL 08/09/2024 1:47 PM CDT [facility] RDW-CV 13.0 11.3 - 14.8 % 08/09/2024 1:47 PM CDT [facility] Platelet Count 249 150 - 420 x10E9/L 08/09/2024 1:47 PM CDT [facility] MPV 9.6 7.8 - 11.4 fL 08/09/2024 1:47 PM CDT [facility] Neutrophil % 72.7 41.0 - 74.0 % 08/09/2024 1:47 PM CDT [facility] Lymphocyte % 18.0 17.0 - 47.0 % 08/09/2024 1:47 PM CDT [facility] Monocyte % 7.5 3.0 - 11.0 % 08/09/2024 1:47 PM CDT [facility] Eosinophil % 1.2 0.0 - 7.0 % 08/09/2024 1:47 PM CDT [facility] Basophil % 0.2 0.0 - 1.6 % 08/09/2024 1:47 PM CDT [facility] Immature Granulocytes % 0.4 0.0 - 1.0 % 08/09/2024 1:47 PM CDT [facility] Neutrophil Absolute 11.35(H) 1.60 - 7.50 x10E9/L 08/09/2024 1:47 PM CDT [facility] Lymphocyte Absolute 2.82 1.00 - 4.40 x10E9/L 08/09/2024 1:47 PM CDT [facility] Monocyte Absolute 1.18(H) 0.15 - 1.00 x10E9/L 08/09/2024 1:47 PM CDT [facility] Eosinophil Absolute 0.19 0.00 - 0.60 x10E9/L 08/09/2024 1:47 PM CDT [facility] Basophil Absolute 0.03 0.00 - 0.13 x10E9/L 08/09/2024 1:47 PM CDT [facility] Blood BLOOD SPECIMEN / Unknown Venipuncture / Unknown 08/09/2024 1:40 PM CDT 08/09/2024 1:43 PM CDT Josué MCKEON-C LAB - HEMATOLOGY ORDERABL ES Final Result Performing Organization Address [facility] Co de Phone Number [facility] [address] [place] [phone] * B-TYPE NATRIURETIC PEPTIDE (08/09/2024 1:40 PM CDT) BNP 29 <=100 pg/mL 08/09/2024 2:11 PM CDT [facility] Blood BLOOD SPECIMEN / Unknown Venipuncture / Unknown 08/09/2024 1:40 PM CDT 08/09/2024 1:43 PM CDT Narrative [facility] - 08/09/2024 2:11 PM [...] ORDERABLE S Final Result Performing Organization Address [facility] Co de Phone Number [facility] [address] [place] [phone] * (ABNORMAL) COMPREHENSIVE METABOLIC PANEL (08/09/2024 1:40 PM CDT) [facility] Glucose 212(H) 70 - 99 mg/dL 08/09/2024 2:09 PM CDT [facility] Sodium 136 136 - 145 mmol/L 08/09/2024 2:09 PM CDT [facility] Potassium 3.9 3.5 - 5.1 mmol/L 08/09/2024 2:09 PM CDT [facility] Chloride 103 98 - 107 mmol/L 08/09/2024 2:09 PM CDT [facility] CO2 24 22 - 29 mmol/L 08/09/2024 2:09 PM T [facility] Calcium 9.4 8.4 - 10.4 mg/dL 08/09/2024 2:09 PM [facility] Anion Gap 9 6 - 16 mmol/L 08/09/2024 2:09 PM T [facility] BUN 19 7 - 26 mg/dL 08/09/2024 2:09 PM T [facility] Creatinine 0.82 0.57 - 1.11 mg/dL 08/09/2024 2:09 PM [facility] Alkaline Phosphatase 68 40 - 150 U/L 08/09/2024 2:09 PM CDT [facility] ALT 22 6 - 57 U/L 08/09/2024 2:09 PM T [facility] AST 23 10 - 48 U/L 08/09/2024 2:09 PM [facility] Protein Total 8.0 6.4 - 8.3 gm/dL 08/09/2024 2:09 PM T [facility] Albumin 3.3(L) 3.4 - 5.0 gm/dL 08/09/2024 2:09 PM [facility] Bilirubin Total 0.9 0.2 - 1.2 mg/dL 08/09/2024 2:09 PM [facility] eGFR by CKD-EPI 78(L) >=90 mL/min/1.7 3 m2 08/09/2024 2:09 PM [facility] Blood BLOOD SPECIMEN / Unknown Venipuncture / Unknown 08/09/2024 1:40 PM CDT 08/09/2024 1:43 PM CDT Josué MCKEON-Ana Laura LAB - CHEMISTRY ORDERABLE S Final Result Performing Organization Address [facility] de Phone Number [facility] [address] [place], [place] [id number] * (ABNORMAL) MAGNESIUM BLOOD (08/09/2024 1:40 PM CDT) Pathologist [facility] Magnesium 1.5(L) 1.6 - 2.6 mg/dL 08/09/2024 2:09 PM CDT [facility] Blood BLOOD SPECIMEN / Unknown Venipuncture / Unknown 08/09/2024 1:40 PM CDT 08/09/2024 1:43 PM CDT Josué MCKEON-C LAB - CHEMISTRY ORDERABLE S Final Result Performing Organization Address [facility] de Phone Number [facility] [address] [place] [address] * CK BLOOD (08/09/2024 1:40 PM CDT) [facility] CK 107 29 - 168 U/L 08/09/2024 7:44 PM CDT [facility] Blood BLOOD SPECIMEN / Unknown Venipuncture / Unknown 08/09/2024 1:40 PM CDT 08/09/2024 1:43 PM CDT Yasmin Matthew DO LAB - CHEMISTRY ORDERABLES F inal Result Performing Organization Address [facility] Co de Phone Number [facility] [address] [place] [address] * HEPATITIS C AB SCREEN RFLX NAAT QUANT (02/21/2023 6:30 PM CDT) [facility] Hepatitis C Antibody Non-react hugh Non-reac tive 02/21/2023 7:32 PM CDT [facility] Comment:Hepatitis C Antibody [...] Address City/[facility]/ZIP Co de Phone Number [facility] [address] [place] [address], [place] [phone] * (ABNORMAL) HEMOGLOBIN A1C (12/25/2022 3:56 AM CDT) Hemoglobin A1c 8.6(H) <=5.6 % 12/25/2022 2:47 PM CDT [facility] Estimated Average Glucose 200 mg/dL 12/25/2022 2:47 PM CDT [facility] Comment: HbA1c Interpretation: Normal : < 5.7% Pre-diabetes: 5.7-6.4% Diabetes: Equal to or greater than 6.5% Test results diagnostic of diabetes should be repeated for confirmation. Treatment target values recommended by ADA and other clinical organizations should be used to evaluate metabolic control in patients. Reference: [place] [employer], Standards of Care in Diabetes [...] LAB - CHEMISTRY ORDERA BLES Final Result [facility] [address] [place] [address], [place] [phone] from Last 3 Months or Most Recently [...] 3:37 AM 03/23/2023 7:14 PM Care Teams Gizzard Skin Remover Relationship Specialty Start Date End Date Justen Gale MD PCP - General 07/05/21
--- OUTSIDE RECORDS SUMMARY | 2024-11-07 17:47 | XMS_ITS | Encounter Summary ---
Author Organization [facility] Address [address] [place] [address] Phone Care Team Providers Care Color Adviser Name Role Phone Justen Gale MD Primary Care Provider [phone] David Roberts APRN, DECKHAND MAINTENANCE Unavailable Annel Rod MD Unavailable Reason for Visit * Reason Comments Medication Refill Encounter Details Date Type Department Care Team (Late st Contact Info) Description 08/30/2022 Refill [facility] - [facility] [address] [place] [address] Justen Gale MD #[address] [address] Medication Refill Social History Tobacco Use Types [...] [place] 05/02/22 Office Visit Justen Gale MD [facility] [place] 03/03/22 Office Visit Pili Elkins APRN, NETTA [facility] [place] 01/03/22 Office Visit Dannielle Berg PAC [facility] [place] 12/07/21 Office Visit Pili Elkins APRN, NETTA [facility] [place] 11/09/21 Office Visit Pili Elkins APRN, NETTA [facility] [place] 10/08/21 Office Visit Angelito Alegria APRN, NETTA [facility] [place] 08/30/21 [facility] Showing recent visits within past 365 days and meeting all other requirements Future Appointments No visits were found meeting these conditions. Showing future appointments within next 90 days and meeting all other requirements documented in this encounter Plan of Treatment Upcoming Encounters Date Type Department Care Team (Late st Contact Info) Description 11/13/2024 2:00 PM CDT Appointment [facility] [address] [place] [address] Angelito Alegria APRN, DECKHAND MAINTENANCE [address] [address] Discharge Disposition: Discharged to home or Selfcare 11/19/2024 2:00 PM CDT Office Visit [facility] - [facility]ocr[facility]ology - [place] [address] [place] [address] Annel Rod MD #[address] [address] documented as of this encounter Visit Diagnoses Not on filedocumented in this encounter Additional Health Concerns Infection Onset Date Last Indicated Resolved Time COVID - 19 08/01/2024 08/01/2024 08/01/2024 3:20 PM CDT Assessment Noted Time PHQ-9 Depression Total Score: 0 07/21/19 3:00 PM CDT documented as of this encounter Care Teams Color Adviser Relationship Specialty Start Date End Date Justen Gale MD #[address] [address] PCP - General Family Medicine 10/17/17 David Roberts APRN, DECKHAND MAINTENANCE [address] [place] [address] Nurse Practitioner Advanced Practice Nurse 01/31/22 Annel Rod MD #[address] [address] Consulting Physician Endocrinology 07/01/22 documented as of this encounter
--- OUTSIDE RECORDS SUMMARY | 2024-11-07 17:47 | XMS_ITS | Encounter Summary ---
Author Organization [facility] Address [address] [place] [address] Phone Care Team Providers Care Plant Pathologist Name Role Phone Justen Gale MD Primary Care Provider [phone] David Roberts APRN, UNIVERSITY DEMONSTRATOR Unavailable Annel Rod MD Unavailable Reason for Visit * Reason Onset Date Comments Breathing Problem 08/07/2024 Muscle Pain 08/07/2024 Encounter Details Date Type Department Care Team (Late st Contact Info) Description 08/07/2024 Nurse Triage [facility] [address] [place] [address] Justen Gale MD #[address] [address] Breathing Problem; Muscle Pain Social History Tobacco Use Types Packs/Day Years Used Date Smoking Tobacco: Never Smokeless Tobacco: Never Alcohol Use Standard Drinks/Week Comments No 0 (1 standard drink = 0.6 oz pur e alcohol) [facility] Utilities Answer Date Recorded In the [...] Total Score - Questions 1-9 0 07/23 [facility] Occupat ional Health - Occupational [...] time in the past 12 m [facility], were you homeless or living in [...] She reports this was discussed with the director of front office and provider was to be notified in [...] Encouraged caller to bring cell phone and assembler for puller over hand to contact EMS 911 if symptoms worsen [...] (e.g., disoriented, slurred speech) Protocols used: Breathing [id number] * Telephone Encounter - Neha Tomlinson - 08/07/2024 1:30 PM CDT Symptoms: Altered Mental Status, Body Aches, Breathing Trouble Outcome: Warm transfer to an emergent RN NOW! Reason: Trouble walking The caller accepted this outcome. documented in this encounter Plan of Treatment Upcoming Encounters Date Type Department Care Team (Late st Contact Info) Description 11/13/2024 2:00 PM CDT [facility]ment [facility] Cardiology Services [address] [place] [address] Angelito Alegria APRN, NETTA #2 [facility] [address] [place] [address] Discharge Disposition: Discharged to home or Selfcare 11/19/2024 2:00 PM CDT Office Visit [facility] - Endocrinology [facility] #[address] [place] [address] Annel Rod MD #2 [facility] [address] [place] [address] documented as of this encounter Visit Diagnoses Not on filedocumented in this encounter Additional Health Concerns Assessment Noted Time PHQ-9 Depression Total Score: 0 08/02/19 25 1:09 PM CDT documented as of this encounter Care Teams Plant Pathologist Relationship Specialty Start Date End Date Jutsen Gale MD #2 [facility] [address] [place] [address] PCP - General Family Medicine 10/17/17 David Roberts APRN, NETTA [address] [place] [address] Nurse Practitioner Advanced Practice Nurse 01/31/22 Annel Rod MD #2 [facility] [address] [place] [phone] Consulting Physician Endocrinology 07/01/22 documented as of this encounter
--- OUTSIDE RECORDS SUMMARY | 2024-11-07 17:47 | XMS_ITS | Encounter Summary ---
Author Organization [facility] Address [address] [place] [address] Phone Care Team Providers Care Pipe Out Worker Name Role Phone Justen Gale MD Primary Care Provider David Roberts APRN, KEYPUNCHER Unavailable Annel Rod MD Unavailable Reason for Visit * Reason Comments Medication Refill Encounter Details Date Type Department Care Team (Late st Contact Info) Description 07/06/2023 Refill [facility] - Family [facility] #2 [place] [phone] Justen Gale MD #[address] [address] Medication Refill Social History Tobacco Use Types [...] Dept 06/27/23 Office Visit Justen Gale MD [facility] [place] 01/17/23 Office Visit Catrina Quiñonez MD [facility] [place] Showing recent visits within past 270 [...] Info) Description 11/13/2024 2:00 PM CDT [facility] [address] [place] [address] Angelito Alegria, GLASS VIAL FILLER, KEYPUNCHER #[address] [address] Discharge Disposition: Discharged to home or Selfcare 11/19/2024 2:00 PM CDT Office Visit [facility] - Endocr[facility]ology - [place] [address] [place] [address] Annel Rod MD #2 [facility] [address] [place] [address] documented as of this encounter Visit Diagnoses Not on filedocumented in this encounter Additional Health Concerns Infection Onset Date Last Indicated Resolved Time COVID - 19 08/01/2024 08/01/2024 08/01/2024 3:20 PM CDT Assessment Noted Time PHQ-9 Depression Total Score: 8 01/18/20 23 2:24 PM CDT documented as of this encounter Care Teams Pipe Out Worker Relationship Specialty Start Date End Date Justen Gale MD #2 [facility] [address] [place] [address] PCP - General Family Medicine 10/17/17 David Roberts APRN, KEYPUNCHER [address] [place] [address] Nurse Practitioner Advanced Practice Nurse 01/31/22 Annel Rod MD [address] [address] Consulting Physician Endocrinology 07/01/22 documented as of this encounter
--- OUTSIDE RECORDS SUMMARY | 2024-11-07 17:47 | XMS_ITS | Encounter Summary ---
Author Organization [facility] Address [address] [place] [address] Phone Care Team Providers Care Green Promotions Specialist Name Role Phone Justen Gale MD Primary Care Provider [phone] David Roberts APRN, LAWYER REAL ESTATE Unavailable Annel Rod MD Unavailable Reason for Visit * Reason Onset Date Comments Sore Throat 09/02/2024 Encounter Details Date Type Department Care Team (Late st Contact Info) Description 09/02/2024 Nurse Triage [facility] Central Call Center [address] [place] [address] Justen Gale MD #[address] [address] Sore Throat Social History Tobacco Use Types Packs/Day Years Used Date Smoking Tobacco: Never Smokeless Tobacco: Never Alcohol Use Standard Drinks/Week Comments No 0 (1 standard drink = 0.6 oz pur e alcohol) [facility] Utilities Answer Date Recorded In [...] in the past [address] [facility], were you homeless or living in [...] Pharmacy, medications, and allergies reviewed. Discussed utilizing Extenda-Dent to: discuss if they would prefer a Extenda-Dent message or phone call response - See [...] Ulcers - Caller Reports Outcome: Transfer to wheel fitter queue Reason: Caller denied all higher acuity questions The caller accepted this outcome. Caller Denied: * Struggling for each breath (severe trouble breathing) * Can't swallow saliva (drooling) documented in this encounter Plan of Treatment Upcoming Encounters Date Type Department Care Team (Late st Contact Info) Description 11/13/2024 2:00 PM CDT Appointment [facility] Cardiology Services [address] [place] [address] Angelito Alegria APRN, LAWYER REAL ESTATE #[address] [address] Discharge Disposition: Discharged to home or Selfcare 11/19/2024 2:00 PM CDT Office Visit [facility] [place] #2 [place] [address] Annel Rod MD #[address] [address] documented as of this encounter Visit Diagnoses Not on filedocumented in this encounter Additional Health Concerns Assessment Noted Time PHQ-9 Depression Total Score: 0 08/02/19 25 1:09 PM CDT documented as of this encounter Care Teams Green Promotions Specialist Relationship Specialty Start Date End Date Justen Gale MD #[address] [address] PCP - General Family Medicine 10/17/17 David Roberts APRN, LAWYER REAL ESTATE #2 [place] [address] Nurse Practitioner Advanced Practice Nurse 01/31/22 Annel Rod MD #[address] [phone] Consulting Physician Endocrinology 07/01/22 documented as of this encounter
--- OUTSIDE RECORDS SUMMARY | 2024-11-07 17:47 | XMS_ITS | Encounter Summary ---
Author Organization [facility] Address [address] [place] [address] Phone Care Team Providers Care Medical File Clerk Name Role Phone Justen Gale MD Primary Care Provider [phone] David Roberts APRN, SEMICONDUCTOR PACKAGES SEALER Unavailable [phone] Annel Rod MD Unavailable Reason for Visit * Reason Onset Date Comments Advice Only 11/21/2023 Encounter Details Date Type Department Care Team (Late st Contact Info) Description 11/21/2023 Telephone [facility] Central Call Center [address] [place] [address] Justen Gale MD #[address] [address] Advice Only Social History Tobacco Use Types [...] 3:17 PM CDT RFC: Alejandra from [facility] is calling to state that patient is listed as being a diabteic but is not on a statin. Please call Alejandra (relationship to patient n/a) back regarding above referenced patient. Patient's Provider is Justen Gale MD . documented in this encounter Plan of Treatment Upcoming Encounters Date Type Department Care Team (Late st Contact Info) Description 11/13/2024 2:00 PM CDT Appointment [facility] Cardiology Services 1 [place] [address] Angelito Alegria, CLIPMAN, SEMICONDUCTOR PACKAGES SEALER #2 [facility] [address] [place] [address] Discharge Disposition: Discharged to home or Selfcare 11/19/2024 2:00 PM CDT [facility] - [place] #2 [place] [address] Annel Rod MD #2 [facility] [address] [place] [address] documented as of this encounter Visit Diagnoses Not on filedocumented in this encounter Additional Health Concerns Infection Onset Date Last Indicated Resolved Time COVID - 19 08/01/2024 08/01/2024 08/01/2024 3:20 PM CDT Assessment Noted Time PHQ-9 Depression Total Score: 8 01/18/20 2:24 PM CDT documented as of this encounter Care Teams Medical File Clerk Relationship Specialty Start Date End Date Justen Gale MD #2 [facility] [address] [place] [address] PCP - General Family Medicine 10/17/17 David Roberts APRN, NETTA #2 [place] [address] Nurse Practitioner Advanced Practice Nurse 01/31/22 Annel Rod MD #2 [facility] [address] [place] [address] Consulting Physician Endocrinology 07/01/22 documented as of this encounter
--- OUTSIDE RECORDS SUMMARY | 2024-11-07 17:47 | XMS_ITS | Encounter Summary ---
Author Organization [facility] Address [address] [place] [address] Phone Care Team Providers Care Wall Insulation Sprayer Name Role Phone Lavonne Hathaway MD Primary Care Provider + [phone] Liu Jerez MD Unavailable [phone] Albert Corbin MD Unavailable [phone] Justen Gale MD Primary Care Provider [phone] Lavonne Hathaway MD Primary Care Provider + [phone] Justen Gale MD Primary Care Provider + [phone] Khris Arthur MD Unavailable + [phone] Ko Melendez MD Unavailable [phone] John Paul Moyer MD Unavailable Annel Rod MD Unavailable Anali MARSHALL MD, Carlos M. Unavailable [phone] Encounter Details Date Type Department Care Team ([facility] Contact Info) Description 05/15/2017 Orders Only [facility] Scanning, Provider Social History Tobacco Use Types Packs/Day Years Used Date Smoking Tobacco: Former Alcohol Use Standard Drinks/Week Comments No 0 (1 standard drink = 0.6 oz pur e alcohol) Comments Unknown Sex and Gender Information Value Date Recorded Sex Assigned at Not on file Legal Sex Female 12:24 AM SUPPLY CHAIN MANAGER Gender Identity Not on file Sexual [...] COVID: Recovered 02/10/2022 02/10/2022 06/10/2022 3:05 AM SUPPLY CHAIN MANAGER Exposure, COVID-19 Comment:Added automatically based on COVID19 lab answers indicating exposure risk 02/11/2022 02/11/2022 02/15/2022 9:06 AM C DT COVID: Suspected 05/14/2022 05/14/2022 05/14/2022 10:41 AM SUPPLY CHAIN MANAGER COVID: Suspected 06/07/2022 06/07/2022 06/07/2022 12:28 PM SUPPLY CHAIN MANAGER COVID: Suspected 06/21/2022 06/21/2022 06/21/2022 2:12 AM SUPPLY CHAIN MANAGER COVID: Suspected 10/05/2022 10/05/2022 10/05/2022 7:40 PM CDT COVID: Suspected 01/04/2024 01/04/2024 01/04/2024 10:30 PM CDT COVID: Suspected 02/14/2024 02/14/2024 02/15/2024 12:36 AM CDT COVID: Suspected 07/01/2024 07/01/2024 07/01/2024 2:53 PM CDT COVID: Suspected 07/01/2024 07/01/2024 07/02/2024 3:05 AM CDT documented as of this encounter Care Teams Wall Insulation Sprayer Relationship Specialty Start Date End Date Lavonne Hathaway MD [address] [place] [address] [place] [address] PCP - General 08/16/16 08/17/17 Justen Gale MD 2 [facility] [address] [address] PCP - General 08/18/17 08/22/17 Lavonne Hathaway MD [address] [place] [address] [place] [address] PCP - General Family Medicine 08/23/17 10/08/17 Justen Gale MD 2 [facility] [place] [address] [address] PCP - General 10/09/17 Lui Jerez MD [address] [place] [address] [place] [address] Consulting Physician Gastroenterology 07/28/17 [place] [address] [facility] [address] [place] [address] Consulting Physician Pulmonary Disease 08/03/17 Khris Arthur MD [address] [facility] [address] [place] [address] Medical Oncologist/Transportation Coordinator Medical Oncology 10/23/17 [place] [address] [facility] [address] [place] [address] Surgeon Orthopedic Surgery 10/23/17 [place] [address] [facility] [address] [place] [address] Consulting Physician Pain Management 10/23/17 [place] [address] [facility] [address] [place] [address] Referring Physician General Surgery 01/26/18 [place] [address] [facility] [address] [place] [address] Consulting Physician Neurology 01/26/18 documented as of this encounter
--- OUTSIDE RECORDS SUMMARY | 2024-11-07 17:47 | XMS_ITS | Encounter Summary ---
Author Organization [facility] Address [address] [place] [address] Phone Care Team Providers Care Director Of Social Services Name Role Phone Justen Gale MD Primary Care Provider David Roberts APRN, LAMP WIRER Unavailable Annel Rod MD Unavailable Reason for Visit * Reason Comments Medication Refill Encounter Details Date Type Department Care Team (Late st Contact Info) Description 02/07/2023 Refill [facility] #[address] [place] [address] Catrina Quiñonez MD #2 [place] [address] Medication Refill Social History Tobacco Use Types [...] 09/16/22 Office Visit Pili Elkins APRN, CNP [facility] [place] 07/05/22 Office Visit Pili Elkins APRN, CNP [facility] 05/02/22 Office Visit Justen Gale MD [facility] [place] 03/03/22 Office Visit Pili Elkins APRN, NETTA [facility] [place] Showing recent [...] 11/13/2024 2:00 PM CDT Appointment [facility] Cardiology Services [address] [place] [address] Angelito Alegria APRN, LAMP WIRER #[address] [address] Discharge Disposition: Discharged to home or Selfcare 11/19/2024 2:00 PM CDT Office Visit [facility] Endocr[facility] #2 [place] [address] Annel Rod MD #[address] [address] documented as of this encounter Visit Diagnoses Not on filedocumented in this encounter Additional Health Concerns Infection Onset Date Last Indicated Resolved Time COVID - 19 08/01/2024 08/01/2024 08/01/2024 3:20 PM CDT Assessment Noted Time PHQ-9 Depression Total Score: 8 01/18/20 2:24 PM CDT documented as of this encounter Care Teams Director Of Social Services Relationship Specialty Start Date End Date Justen Gale MD #[address] [address] PCP - General Family Medicine 10/17/17 David Roberts APRN, LAMP WIRER #2 [place] [address] Nurse Practitioner Advanced Practice Nurse 01/31/22 Annel Rod MD #[address] [place] [address] Consulting Physician Endocrinology 07/01/22 documented as of this encounter
--- OUTSIDE RECORDS SUMMARY | 2024-11-07 17:47 | XMS_ITS | Encounter Summary ---
Author Organization [facility] Address [address] [place] [address] Phone Care Team Providers Care Veneer Grader Name Role Phone Liu Jerez MD Unavailable Albert Corbin MD Unavailable Justen Gale MD Primary Care Provider Khris Arthur MD Unavailable [phone] Ko Melendez MD Unavailable John Paul Moyer MD Unavailable Annel Rod MD Unavailable Anali MARSHALL MD, Carlos M. Unavailable [phone] Encounter Details Date Type Department Care Team [...] file Legal Sex Female 12:24 AM RETAIL SUPPORT SPECIALIST Gender Identity Not on file Sexual [...] COVID: Recovered 02/10/2022 02/10/2022 06/10/2022 3:05 AM RETAIL SUPPORT SPECIALIST Exposure, COVID-19 Comment:Added automatically based on COVID19 lab answers indicating exposure risk 02/11/2022 02/11/2022 02/15/2022 9:06 AM C DT COVID: Suspected 05/14/2022 05/14/2022 05/14/2022 10:41 AM RETAIL SUPPORT SPECIALIST COVID: Suspected 06/07/2022 06/07/2022 06/07/2022 12:28 PM RETAIL SUPPORT SPECIALIST COVID: Suspected 06/21/2022 06/21/2022 06/21/2022 2:12 AM RETAIL SUPPORT SPECIALIST COVID: Suspected 10/05/2022 10/05/2022 10/05/2022 7:40 PM CDT COVID: Suspected 01/04/2024 01/04/2024 01/04/2024 10:30 PM CDT COVID: Suspected 02/14/2024 02/14/2024 02/15/2024 12:36 AM CDT COVID: Suspected 07/01/2024 07/01/2024 07/01/2024 2:53 PM CDT COVID: Suspected 07/01/2024 07/01/2024 07/02/2024 3:05 AM CDT documented as of this encounter Care Teams Veneer Grader Relationship Specialty Start Date End Date Justen Gale MD 2 [facility] [address] [place] [address] PCP - General 10/09/17 Liu Jerez MD Consulting Physician Gastroenterology 07/28/17 [place] [address] [facility] [address] [place] [address] Consulting Physician Pulmonary Disease 08/03/17 [place] [address] [place] [address] [address] [place] [address] Medical Oncologist/Buttonhole Machine Operator Medical Oncology 10/23/17 [place] [address] [address] Surgeon Orthopedic Surgery 10/23/17 [place] [address] [facility] [address] [place] [address] Consulting Physician Pain Management 10/23/17 [place] [address] [address] Referring Physician General Surgery 01/26/18 [place] [address] [facility] [address] [place] [address] Consulting Physician Neurology 01/26/18 documented as of this encounter
--- OUTSIDE RECORDS SUMMARY | 2024-11-07 17:47 | XMS_ITS | Encounter Summary ---
Author Organization [facility] Address [address] [place] [address] Phone Care Team Providers Care Log Feeder Name Role Phone Justen Gale MD Primary Care Provider David Roberts APRN, CLAIMS SERVICE ADJUSTOR Unavailable Annel Rod MD Unavailable Reason for Visit * Reason Comments Medication Refill Encounter Details Date Type Department Care Team (Late st Contact Info) Description 09/30/2023 Refill [facility] - [place] #2 [place] [address] Annel Rod MD #[address] [address] Medication Refill Social History [...] 11/13/2024 2:00 PM CDT Appointment [facility] Cardiology Services 1 [place] [address] Angelito Alegria APRN, CLAIMS SERVICE ADJUSTOR #[address] [address] Discharge Disposition: Discharged to home or Selfcare 11/19/2024 2:00 PM CDT Office Visit [facility] #2 [place] [address] Annel Rod MD #[address] [address] documented as of this encounter Visit Diagnoses Not on filedocumented in this encounter Additional Health Concerns Infection Onset Date Last Indicated Resolved Time COVID - 19 08/01/2024 08/01/2024 08/01/2024 3:20 PM CDT Assessment Noted Time PHQ-9 Depression Total Score: 8 01/18/20 2:24 PM CDT documented as of this encounter Care Teams Log Feeder Relationship Specialty Start Date End Date Justen Gale MD #[address] [place] [address] PCP - General Family Medicine 10/17/17 David Roberts APRN, CLAIMS SERVICE ADJUSTOR #2 [place] [address] Nurse Practitioner Advanced Practice Nurse 01/31/22 Annel Rod MD #[address] [address] Consulting Physician Endocrinology 07/01/22 documented as of this encounter
--- OUTSIDE RECORDS SUMMARY | 2024-11-07 17:47 | XMS_ITS | Encounter Summary ---
Author Organization [facility] Address [address] [place] [address] Phone Care Team Providers Care Insurance Compliance Analyst Name Role Phone Justen Gale MD Primary Care Provider [phone] David Roberts APRN, TILESETTER Unavailable Annel Rod MD Unavailable Reason for Visit * Reason Comments Medication Refill Encounter Details Date Type Department Care Team (Late st Contact Info) Description 07/12/2022 Refill [facility] Family [facility] #2 [place] [address] Justen Gale MD #[address] [address] Medication Refill Social History Tobacco Use Types [...] [place] 03/03/22 Office Visit Pili Elkins APRN, TILESETTER [facility] [place] 01/03/22 Office Visit Dannielle Berg PAC [facility] [place] 12/07/21 Office Visit Pili Elkins APRN, NETTA [facility] [place] 11/09/21 Office Visit Pili Elkins APRN, NETTA [facility] [place] 10/08/21 Office Visit Angelito Alegria APRN, NETTA [facility] [place] 08/30/21 Office Visit Justen [facility] Showing recent visits within past 365 days and meeting all other requirements Future Appointments No visits were found meeting these conditions. Showing future appointments within next 90 days and meeting all other requirements documented in this encounter Plan of Treatment Upcoming Encounters Date Type Department Care Team (Late st Contact Info) Description 11/13/2024 2:00 PM CDT Appointment [facility] Cardiology Services [address] [place] [address] Angelito Alegria APRN, TILESETTER #[address] [address] Discharge Disposition: Discharged to home or Selfcare 11/19/2024 2:00 PM CDT Office Visit [facility] - Endocr[facility] #2 [place] [address] Annel Rod MD #[address] [address] documented as of this encounter Visit Diagnoses Not on filedocumented in this encounter Additional Health Concerns Infection Onset Date Last Indicated Resolved Time COVID - 19 08/01/2024 08/01/2024 08/01/2024 3:20 PM CDT Assessment Noted Time PHQ-9 Depression Total Score: 0 07/21/19 21 3:00 PM CDT documented as of this encounter Care Teams Insurance Compliance Analyst Relationship Specialty Start Date End Date Justen Gale MD #[address] [address] PCP - General Family Medicine 10/17/17 David Roberts APRN, TILESETTER #2 [place] [address] Nurse Practitioner Advanced Practice Nurse 01/31/22 Annel Rod MD #[address] [address] Consulting Physician Endocrinology 07/01/22 documented as of this encounter
--- OUTSIDE RECORDS SUMMARY | 2024-11-07 17:47 | XMS_ITS | Encounter Summary ---
Author Organization [facility] Address [address] [place] [address] Phone Care Team Providers Care Bulk Plant Manager Name Role Phone Justen Gale MD Primary Care Provider David Roberts APRN, SCHOOL VOCATIONAL EDUCATOR Unavailable Annel Rod MD Unavailable Reason for Visit * Reason Comments Medication Refill Encounter Details Date Type Department Care Team (Late st Contact Info) Description 04/13/2023 Refill [facility] Endocr[facility] - [place] #2 [place] [address] Annel Rod MD #[address] [address] Medication Refill Social History [...] encounter Miscellaneous Notes * Telephone Encounter - Jennfier Wang RN - 04/14/2023 10:00 AM APPRAISER IRRIGATION TAX Requested Prescriptions Pending Prescriptions Disp Refills ??? Continuous Blood Gluc Sensor (FreeStyle Eileen 2 Sensor) Misc [Pharmacy Med Name: FREESTYLE EILEEN 2 SENSOR] 6 Each 1 Sig: APPLY 1 SENSOR AND WEAR FOR 14 DAYS TO CHECK BLOOD SUGAR Next appt: 05/30/2023 AISER IRRIGATION TAX documented in this encounter Plan of Treatment Upcoming Encounters Date Type Department Care Team (Late st Contact Info) Description 11/13/2024 2:00 PM CDT Appointment [facility] Cardiology Services 1 [place] [address] Angelito Alegria APRN, SCHOOL VOCATIONAL EDUCATOR #2 [facility] [address] [place] [address] Discharge Disposition: Discharged to home or Selfcare 11/19/2024 2:00 PM CDT Office Visit [facility] End[facility] #2 [place] [address] Annel Rod MD #2 [facility] [address] [place] [address] documented as of this encounter Visit Diagnoses Not on filedocumented in this encounter Additional Health Concerns Infection Onset Date Last Indicated Resolved Time COVID - 19 08/01/2024 08/01/2024 08/01/2024 3:20 PM CDT Assessment Noted Time PHQ-9 Depression Total Score: 8 01/18/20 23 2:24 PM CDT documented as of this encounter Care Teams Bulk Plant Manager Relationship Specialty Start Date End Date Justen Gale MD #2 [facility] [address] [place] [address] PCP - General Family Medicine 10/17/17 David Roberts APRN, SCHOOL VOCATIONAL EDUCATOR #2 [place] [address] Nurse Practitioner Advanced Practice Nurse 01/31/22 Annel Rod MD #[address] [address] Consulting Physician Endocrinology 07/01/22 documented as of this encounter
--- OUTSIDE RECORDS SUMMARY | 2024-11-07 17:47 | XMS_ITS | Clinical Summary ---
Author Organization [facility] Address [address] [place] [address] Phone Care Team Providers Care Community Recreation Coordinator Name Role Phone Justen Gale MD Primary Care Provider [phone] David Roberts APRN, REGISTERED ACCOUNT ADMINISTRATOR Unavailable [phone] Annel Rod MD Unavailable Allergies Active Allergy [...] 09/10/19 21 Active OneTouch Delica Lancets 33G [facility] [place] Tablet by mouth. 12/28/19 24 Active Multiple Vitamins-Gaston als (WOMENS MULTI PO) Take by mouth. [...] taking until cleared by PCP office or prep room supervisor. Will need to taper off slowly. Indications: [...] taking until cleared by PCP office or prep room supervisor. Will need to taper off slowly. Indications: [...] Overview: Added automatically from request for surgery [id number] Lymphedema of left upper extremity 08/09/2016 Pulmonary embolism 08/09/2016 Overview (11/09/2017): Last Assessment & Plan: On Rivaroxaban Arthralgia of ankle 01/26/2015 Cellulitis of breast 11/11/2014 Encounters Date Type Department Care Team Description 11/07/2024 [facility] [address] [place] [address] Justen Gale MD Advice Only; Fatigue; Shortness of Breath 11/06/2024 MyChart RX Renewal [facility] [place] [address] Justen Gale MD Medication Renewal Declined 11/05/2024 [facility] [place] [facility] [place] [phone] Justen Gale MD Medication Refill 10/28/2024 MyChart RX Renewal [facility] [address] [place] [phone] Justen Gale MD Medication Renewal Reviewed 10/17/20[facility] [place] [phone] Annel Rod MD Medication Refill 10/08/2024 Nurse Triage [facility] Central Call Center [address] [place] [phone] Justen Gale MD Abdominal Pain 09/30/2024 MyChart RX Renewal [facility] [address] [place] [address] Dulce Wolff, BILINGUAL SOCIAL WORKER, REGISTERED ACCOUNT ADMINISTRATOR Medication Renewal Reviewed 09/29/2024 Nurse Triage [facility] Central Call [address] [phone] Justen Gale MD Urinary Tract Infection 09/23/2024 Nurse Triage [facility] Central Call [address] [address] Justen Gale MD Breathing Problem; Pain 09/23/2024 Telephone [facility] Central Call Center [address] [place] [phone] Justen Gale MD Pain 09/11/2024 Telephone [facility] Central Call Center [address] [place] [phone] Justen Gale MD Follow-up 09/06/2024 1:15 PM CDT Office Visit [facility] [address] [place] [phone] Oehl, Dulce N, BILINGUAL SOCIAL WORKER, REGISTERED ACCOUNT ADMINISTRATOR Enlarged tonsils (Primary Dx); Polymyalgia rheumatica (HCC); Oral candidiasis; Edema, unspecified type Discharge Disposition: Discharged to home or Selfcare 09/06/2024 Travel 09/03/2024 Telephone [facility] [address] [place] [address] Justen Gale MD Follow-up 09/02/2024 [facility] [address] [place] [phone] Justen Gale MD Sore Throat 08/20/2024 1:15 PM CDT Office Visit [facility] [address] [place] [address] Justen Gale MD Acute maxillary sinusitis, recurrence not specified (Primary Dx) Discharge Disposition: Discharged to home or Selfcare 08/20/2024 Travel 08/19/2024 Telephone [facility] [address] [place] [address] Justen Gale MD Advice Only; Follow-up 08/14/2024 Telephone [facility] [place] [address] Annel Rod MD High Blood Sugar 08/13/2024 Nurse Triage [address] [phone] Justen Gale MD High Blood Sugar from Last 3 Months Immunizations Immunization Administration Dates Next Due Covid-19 Vaccine, Vector-nr, Rs-ad26, Pf, 0.5 Ml (ivWatch/J&Markkit) 06/29/2020 Influenza Vaccine greater than 3 yrs [...] drink = 0.6 oz pur e alcohol) [facility] Utilities Answer Date Recorded In the [...] declined 08/06/2024 How often do you attend [facility] ch or nondenominational services? More than 4 [...] Total Score - Questions 1-9 0 07/23 [facility] [facility] ional [facility] - Occupational Stress [...] living in a correction (including now)? No 08/06/2024 Education Answer Date [...] [facility] Cardiology Services [address] [place] [address] Angelito Alegria, BILINGUAL SOCIAL WORKER, REGISTERED ACCOUNT ADMINISTRATOR #2 [facility] [address] [place] [address] Discharge Disposition: Discharged to home or Selfcare 11/19/2024 2:00 PM CDT Office Visit [facility] - [place] #2 [place] [address] Annel Rod MD #2 [facility] [address] [place] [address] Health Maintenance Due Date Last Done Comments [...] - ABDOMEN/PELVIS 10/03/2024 1 2:00 AM CDT [id number] CONSULT 09/27/2024 12:00 AM CDT EXTERNAL ENT [...] CONSULT Deann l Result Performing Organization Address [facility] de Phone Number SCAN * CT - ABDOMEN/PELVIS (10/15/2024 12:00 AM CDT) Only the most recent of4 resultswithin the time period is included. 10/15/2024 us Provider Scan IMG CT ORDERABLES Final Result Performing Organization Address [facility] Co de Phone Number SCAN * SURGERY CONSULT (10/12/2024 12:00 AM CDT) 10/12/2024 us Provider Scan GENERIC SCAN ORDERS CONSULT Deann l Result Performing Organization Address [facility] de Phone Number SCAN * CT - SPINE (10/06/2024 12:00 AM CDT) 10/06/2024 us Provider Scan IMG CT ORDERABLES Final Result Performing Organization Address [facility] de Phone Number SCAN * EXTERNAL ENT REFERRAL (09/27/2024 12:00 AM CDT) 09/27/2024 Dulce N Oehl BILINGUAL SOCIAL WORKER, REGISTERED ACCOUNT ADMINISTRATOR OUTPT REFERRALS EXT/INT F inal Result Performing Organization Address [facility] de Phone Number SCAN * XR - CHEST (09/27/2024 12:00 AM CDT) 09/27/2024 us Provider Scan IMG DIAGNOSTIC ORDERABLES Final Result Performing Organization Address [facility] de Phone Number SCAN * [id number] CONSULT (09/27/2024 12:00 AM CDT) 09/27/2024 us Provider Scan GENERIC SCAN ORDERS CONSULT Deann l Result Performing Organization Address [facility] de Phone Number SCAN * PAIN CONSULT (09/19/2024 12:00 AM CDT) 09/19/2024 Justen Gale MD GENERIC SCAN ORDERS CONSULT F inal Result Performing Organization Address [facility] de Phone Number SCAN * CT - HEAD/NECK (08/13/2024 12:00 AM CDT) 08/13/2024 us Provider Scan IMG CT ORDERABLES Final Result Performing Organization [facility] de Phone Number SCAN * (ABNORMAL) CMP (Comprehensive Metabolic Panel) (08/02/2024 11:21 PM CDT) SODIUM 138 136 - 145 mmol/L 08/03/2024 12:29 AM CDT [facility] POTASSIUM 4.4 3.5 - 5.1 mmol/L 08/03/2024 12:29 AM CDT [facility] CHLORIDE 104 98 - 107 mmol/L 08/03/2024 12:29 AM T [facility] CO2, VENOUS 26 22 - 30 mmol/L 08/03/2024 12:29 AM CDT [facility] ANION GAP 12.4 <18.0 mmol/L 08/03/2024 12:29 AM T [facility] GLUCOSE 353(H) 70 - 99 mg/dL 08/03/2024 12:29 AM T [facility] BUN 18 10 - 20 mg/dL 08/03/2024 12:29 AM [facility] CREATININE, BLOOD 0.80 0.60 - 1.00 mg/dL 08/03/2024 12:29 AM T [facility] BUN/CREATININE RATIO 23(H) 12 - 20 ratio 08/03/2024 12:29 AM T [facility] TOTAL PROTEIN 8.4(H) 6.0 - 8.0 g/dL 08/03/2024 12:29 AM T [facility] ALBUMIN 3.8 3.5 - 5.0 g/dL 08/03/2024 12:29 AM [facility] A/G RATIO 0.8(L) 1.0 - 2.2 08/03/2024 12:29 AM T [facility] CALCIUM 10.0 8.7 - 10.5 mg/dL 08/03/2024 12:29 AM T [facility] T BILI 0.4 0.2 - 1.2 mg/dL 08/03/2024 12:29 AM T [facility] SGOT (AST) 23 <43 U/L 08/03/2024 12:29 AM T [facility] SGPT (ALT) 22 <56 U/L 08/03/2024 12:29 AM CDT [facility] ALKALINE PHOSPHATASE 67 40 - 150 U/L 08/03/2024 12:29 AM CDT [facility] GFR, ESTIMATED >60 >=60 08/03/2024 12:29 AM CDT [facility] Comment: Creatinine Clearance is the preferred criteria for selecting drug dose adjustments in renally impaired patients. The GFR is provided as additional pertinent clinical information. GFR is reported in mL/min/1.73 sq m. Calculation based on the Chronic Kidney Disease Epidemiology Collaboration (CKD- EPI) equation refit without adjustment for race. GFR, EST. >60 >=60 025 12:29 AM CDT [facility] GFR, EST. NONAFRICAN >60 >=60 08/03/2024 12:29 AM CDT [facility] Blood Venipuncture / Unknown 08/02/2024 11:21 PM CDT 08/03/2024 12:05 AM CDT us Sergio Rivera MD CHEMISTRY ORDERABLES Final Resul t [facility] #[address] [place] [address] * HEMOGLOBIN, A1C (10/02/2023 12:00 AM CDT) [...] STOOL Negative Negative, Other POC HEMOCULT CONTROL Education Counselor Pass 09/07/2018 1:20 PM CDT Pili Elkins BILINGUAL SOCIAL WORKER, REGISTERED ACCOUNT ADMINISTRATOR POINT OF CARE TESTIN G (MANUAL) Final Result from Last 3 Months or Most Recently Relevant to Health Maintenance Insurance [facility]IC[facility] Care Teams Community Recreation Coordinator Relationship Specialty Start Date End Date Justen Gale MD #2 [facility] [address] [place] [address] PCP - General Family Medicine 10/17/17 David Roberts APRN, REGISTERED ACCOUNT ADMINISTRATOR #2 [place] [address] Nurse Practitioner Advanced Practice Nurse 01/31/22 Annel Rod MD #2 [facility] [address] [place] [address] Consulting Physician Endocrinology 07/01/22
--- OUTSIDE RECORDS SUMMARY | 2024-11-07 17:47 | XMS_ITS | Encounter Summary ---
Author Organization [facility] Address [address] [place] [address] Phone Care Team Providers Care Green Energy Marketing Analyst Name Role Phone Justen Gale MD Primary Care Provider David Roberts APRN, DIRECTOR OF MARKET INTELLIGENCE Unavailable Annel Rod MD Unavailable Reason for Visit * Reason Comments Medication Refill Encounter Details Date Type Department Care Team (Late st Contact Info) Description 02/07/2023 Refill [facility] #2 [place] [address] Pili Elkins APRN, DIRECTOR OF MARKET INTELLIGENCE #[address] [address] Medication Refill Social History Tobacco [...] 11/13/2024 2:00 PM CDT Appointment [facility] Cardiology Services [address] [place] [address] Angelito Alegria, ZAMZAM, DIRECTOR OF MARKET INTELLIGENCE #2 [facility] [address] [place] [address] Discharge Disposition: Discharged to home or Selfcare 11/19/2024 2:00 PM CDT Office Visit [facility] End[facility] - [place] #2 [place] [phone] Annel Rod MD #2 [facility] [address] [place] [address] documented as of this encounter Visit Diagnoses Diagnosis Essential hypertension Unspecified essential hypertension documented in this encounter Additional Health Concerns Infection Onset Date Last Indicated Resolved Time COVID - 19 08/01/2024 08/01/2024 08/01/2024 3:20 PM CDT Assessment Noted Time PHQ-9 Depression Total Score: 8 01/18/20 2:24 PM CDT documented as of this encounter Care Teams Green Energy Marketing Analyst Relationship Specialty Start Date End Date Justen Gale MD #2 [facility] [address] [place] [address] PCP - General Family Medicine 10/17/17 David Roberts APRN, DIRECTOR OF MARKET INTELLIGENCE #2 [place] [address] Nurse Practitioner Advanced Practice Nurse 01/31/22 Annel Rod MD #2 [facility] [address] [place] [address] Consulting Physician Endocrinology 07/01/22 documented as of this encounter
--- OUTSIDE RECORDS SUMMARY | 2024-11-07 17:47 | XMS_ITS | Encounter Summary ---
Author Organization [facility] Address [address] [place] [address] Phone Care Team Providers Care Exterior Work Helper Name Role Phone Justen Gale MD Primary Care Provider [phone] David Roberts APRN, CASTING CARRIER Unavailable [phone] Annel Rod MD Unavailable Reason for Visit * Reason Comments Medication Refill Encounter Details Date Type Department Care Team (Late st Contact Info) Description 10/24/2022 Refill [facility] Family Medicine [facility] #2 [place] [address] Pili Elkins APRN, CASTING CARRIER #[address] [address] Medication Refill Social History Tobacco [...] [facility] Cardiology Services [address] [place] [address] Angelito Alegria, CHILD WELFARE CASEWORKER, CASTING CARRIER #[address] [address] Discharge Disposition: Discharged to home or Selfcare 11/19/2024 2:00 PM CDT Office Visit [facility] Endocrinology [facility] #2 [place] [address] Annel Rod MD #[address] [address] documented as of this encounter Visit Diagnoses Diagnosis Essential hypertension Unspecified essential hypertension documented in this encounter Additional Health Concerns Infection Onset Date Last Indicated Resolved Time COVID - 19 08/01/2024 08/01/2024 08/01/2024 3:20 PM CDT Assessment Noted Time PHQ-9 Depression Total Score: 0 09/17/19 23 11:00 AM CDT documented as of this encounter Care Teams Exterior Work Helper Relationship Specialty Start Date End Date Justen Gale MD #[address] [address] PCP - General Family Medicine 10/17/17 David Roberts CHILD WELFARE CASEWORKER, CASTING CARRIER #2 [place] [address] Nurse Practitioner Advanced Practice Nurse 01/31/22 Annel Rod MD #[address] [address] Consulting Physician Endocrinology 07/01/22 documented as of this encounter
--- OUTSIDE RECORDS SUMMARY | 2024-11-07 17:47 | XMS_ITS | Encounter Summary ---
Author Organization [facility] Address [address] [place] [address] Phone Care Team Providers Care Adult Probation Officer Name Role Phone Justen Gale MD Primary Care Provider David Roberts APRN, MEDICAL DOCTOR MD/MEDICAL DIRECTOR Unavailable Annel Rod MD Unavailable Reason for Visit * Reason Comments Medication Refill Encounter Details Date Type Department Care Team (Late st Contact Info) Description 03/05/2023 Refill [facility] Family Medicine [facility] #2 [place] [address] Pili Elkins APRN, MEDICAL DOCTOR MD/MEDICAL DIRECTOR #[address] [address] Medication Refill Social History [...] discontinued on 10/19/2022 by Justen Gale MD WARE SALES REPRESENTATIVE documented in this encounter Plan of Treatment Upcoming Encounters Date Type Department Care Team (Late st Contact Info) Description 11/13/2024 2:00 PM CDT Appointment [facility] Cardiology Services [address] [place] [address] Angelito Alegria APRN, MEDICAL DOCTOR MD/MEDICAL DIRECTOR #2 [facility] [address] [place] [address] Discharge Disposition: Discharged to home or Selfcare 11/19/2024 2:00 PM CDT Office Visit [facility] - [place] #2 [place] [address] Annel Rod MD #2 [facility] [address] [place] [address] documented as of this encounter Visit Diagnoses Diagnosis Essential hypertension Unspecified essential hypertension documented in this encounter Additional Health Concerns Infection Onset Date Last Indicated Resolved Time COVID - 19 08/01/2024 08/01/2024 08/01/2024 3:20 PM CDT Assessment Noted Time PHQ-9 Depression Total Score: 8 01/18/20 2:24 PM CDT documented as of this encounter Care Teams Adult Probation Officer Relationship Specialty Start Date End Date Justen Gale MD #2 [facility] [address] [place] [address] PCP - General Family Medicine 10/17/17 David Roberts APRN, NETTA #2 [place] [address] Nurse Practitioner Advanced Practice Nurse 01/31/22 Annel Rod MD #2 [facility] [address] [place] [address] Consulting Physician Endocrinology 07/01/22 documented as of this encounter
--- OUTSIDE RECORDS SUMMARY | 2024-11-07 17:47 | XMS_ITS | Encounter Summary ---
Author Organization [facility] Address [address] [place] [address] Phone Care Team Providers Care Event Coordinator Marketing And Sales Name Role Phone Justen Gale MD Primary Care Provider David Roberts APRN, CORN SHREDDER Unavailable [phone] Annel Rod MD Unavailable Reason for Visit * Reason Onset Date Comments Advice Only 08/19/2024 Follow-up 08/19/2024 Encounter Details Date Type Department Care Team (Late st Contact Info) Description 08/19/2024 Telephone [facility] #2 [place] [address] Justen Gale MD #[address] [address] Advice Only; Follow-up Social History Tobacco Use [...] you attend chur ch or jew services? More than 4 times [...] Total Score - Questions 1-9 0 07/23 [facility] - Occupational Stress Questionnaire Answer Date [...] any time in the past 12 m [facility], were you homeless or [...] visit * Telephone Encounter - Angelito Alegria, ANIMAL IMPERSONATOR, CORN SHREDDER - 08/19/2024 9:04 AM CDT Forwarding * Telephone Encounter - Isaura Weiss RN - 08/19/2024 8:37 AM CDT Situation: Strep throat follow up Background: Patient contacting PCP office. Patient was seen in ED on 08/09 and 08/12 in [place] (records in chart). Diagnosed with strep. Assessment: [...] CDT Symptom: Sore Throat Outcome: Transfer to clarity developer queue Reason: Caller denied all higher acuity questions The caller accepted this outcome. Caller Denied: * Struggling for each breath (severe trouble breathing) * Can't swallow saliva (drooling) documented in this encounter Plan of Treatment Upcoming Encounters Date Type Department Care Team (Late st Contact Info) Description 11/13/2024 2:00 PM CDT [facility] 1 [place] [address] Angelito Alegria APRN, CORN SHREDDER #[address] [address] Discharge Disposition: Discharged to home or Selfcare 11/19/2024 2:00 PM CDT Office Visit [facility] - [place] #[address] [place] [address] Annel Rod MD #2 [facility] [address] [place] [address] documented as of this encounter Visit Diagnoses Not on filedocumented in this encounter Additional Health Concerns Assessment Noted Time PHQ-9 Depression Total Score: 0 08/02/19 25 1:09 PM CDT documented as of this encounter Care Teams Event Coordinator Marketing And Sales Relationship Specialty Start Date End Date Justen Gale MD #2 [facility] [address] [place] [address] PCP - General Family Medicine 10/17/17 David Roberts, ANIMAL IMPERSONATOR, CORN SHREDDER #2 [place] [address] Nurse Practitioner Advanced Practice Nurse 01/31/22 Annel Rod MD #[address] [address] Consulting Physician Endocrinology 07/01/22 documented as of this encounter
--- OUTSIDE RECORDS SUMMARY | 2024-11-07 17:47 | XMS_ITS | Encounter Summary ---
Author Organization [facility] Address [address] [place] [address] Phone Care Team Providers Care Automobile And Property Underwriter Name Role Phone Justen Gale MD Primary Care Provider [phone] David Roberts APRN, TOP SPOTTER Unavailable [phone] Annel Rod MD Unavailable Reason for Visit * Reason Comments Medication Refill Encounter Details Date Type Department Care Team (Late st Contact Info) Description 08/07/2023 Refill [facility]ocr[facility]ology - [place] #2 [place] [address] Annel Rod MD #[address] [address] Medication Refill Social History Tobacco [...] 11/13/2024 2:00 PM CDT [facility]ointment [facility] Cardiology Services 1 [place] [address] Angelito Alegria APRN, TOP SPOTTER #[address] [address] Discharge Disposition: Discharged to home or Selfcare 11/19/2024 2:00 PM CDT Office Visit [facility] Endocrin[facility] #2 [place] [address] Annel Rod MD #[address] [address] documented as of this encounter Visit Diagnoses Not on filedocumented in this encounter Additional Health Concerns Infection Onset Date Last Indicated Resolved Time COVID - 19 08/01/2024 08/01/2024 08/01/2024 3:20 PM CDT Assessment Noted Time PHQ-9 Depression Total Score: 8 01/18/20 2:24 PM CDT documented as of this encounter Care Teams Automobile And Property Underwriter Relationship Specialty Start Date End Date Justen Gale MD #[address] [place] [address] PCP - General Family Medicine 10/17/17 David Roberts APRN, TOP SPOTTER #2 [place] [address] Nurse Practitioner Advanced Practice Nurse 01/31/22 Annel Rod MD #[address] [address] Consulting Physician Endocrinology 07/01/22 documented as of this encounter
--- OUTSIDE RECORDS SUMMARY | 2024-11-07 17:47 | XMS_ITS | Encounter Summary ---
Author Organization [facility] Address [address] [place] [address] Phone Care Team Providers Care Non Acoustic Operator Name Role Phone Justen Gale MD Primary Care Provider David Roberts APRN, FACTORY SUPERINTENDENT Unavailable Annel Rod MD Unavailable Reason for Visit * Reason Onset Date Comments Pain 09/23/2024 Encounter Details Date Type Department Care Team (Late st Contact Info) Description 09/23/2024 Telephone [facility] [address] [place] [address] Justen Gale MD #[address] [address] Pain Social History Tobacco Use Types Packs/Day Years Used Date Smoking Tobacco: Never Smokeless Tobacco: Never Alcohol Use Standard Drinks/Week Comments No 0 (1 standard drink = 0.6 oz pur e alcohol) [facility] Utilities Answer Date Recorded In the past 12 months has [employer] electric, gas, oil, or water company threatened [...] do you attend chur or voodoo services? More than 4 times per year [...] Total Score - Questions 1-9 0 07/23 [facility] - [...] message back. * Telephone Encounter - Sabrina Oretga - 09/23/2024 3:14 PM CDT Symptom: Pain - Severe widespread - patient has RA Outcome: Transfer to associate artistic director queue Reason: Caller denied all higher acuity questions The caller accepted this outcome. Caller Denied: * Chest pain * Headache * Eye pain * Abdominal pain * Genital pain documented in this encounter Plan of Treatment Upcoming Encounters Date Type Department Care Team (Late st Contact Info) Description 11/13/2024 2:00 PM CDT Appointment [facility] Cardiology Services [address] [place] [address] Angelito Alegria APRN, FACTORY SUPERINTENDENT #2 [facility] [address] [place] [address] Discharge Disposition: Discharged to home or Selfcare 11/19/2024 2:00 PM CDT Office [facility] - [place] #2 [place] [address] Annel Rod MD #2 [facility] [address] [place] [address] documented as of this encounter Visit Diagnoses Not on filedocumented in this encounter Additional Health Concerns Assessment Noted Time PHQ-9 Depression Total Score: 0 08/02/19 25 1:09 PM CDT documented as of this encounter Care Teams Non Acoustic Operator Relationship Specialty Start Date End Date Justen Gale MD #2 [facility] [address] [place] [address] PCP - General Family Medicine 10/17/17 David Roberts APRN, FACTORY SUPERINTENDENT #2 [place] [address] Nurse Practitioner Advanced Practice Nurse 01/31/22 Annel Rod MD #2 [facility] [address] [place] [address] Consulting Physician Endocrinology 07/01/22 documented as of this encounter
--- OUTSIDE RECORDS SUMMARY | 2024-11-07 17:47 | XMS_ITS | Encounter Summary ---
Author Organization [facility] Address [address] [place] [address] Phone Care Team Providers Care Deputy Sheriff Name Role Phone Justen Gale MD Primary Care Provider [phone] David Roberts APRN, STUDENT SPECIALIST Unavailable [phone] Annel Rod MD Unavailable Reason for Visit * Reason Comments Medication Refill Encounter Details Date Type Department Care Team (Late st Contact Info) Description 07/14/2022 Refill [facility] Family Medicine [facility] #2 [place] [address] Justen Gale MD #[address] [address] Medication Refill Social History Tobacco Use Types [...] PM CDT Appointment [facility] Cardiology Services 1 [place] [phone] Angelito Alegria APRN, STUDENT SPECIALIST #2 [facility] [address] [place] [address] Discharge Disposition: Discharged to home or Selfcare 11/19/2024 2:00 PM CDT Office Visit [facility] - [place] #2 [place] [phone] Annel Rod MD #2 [facility] [address] [place] [phone] documented as of this encounter Visit Diagnoses Not on filedocumented in this encounter Additional Health Concerns Infection Onset Date Last Indicated Resolved Time COVID - 19 08/01/2024 08/01/2024 08/01/2024 3:20 PM CDT Assessment Noted Time PHQ-9 Depression Total Score: 0 07/21/19 21 3:00 PM CDT documented as of this encounter Care Teams Deputy Sheriff Relationship Specialty Start Date End Date Justen Gale MD #2 [facility] [address] [place] [address] PCP - General Family Medicine 10/17/17 David Roberts, MILK AND CREAM GRADER, STUDENT SPECIALIST #2 [place] [address] Nurse Practitioner Advanced Practice Nurse 01/31/22 Annel Rod MD #2 [facility] [address] [place] [address] Consulting Physician Endocrinology 07/01/22 documented as of this encounter
--- OUTSIDE RECORDS SUMMARY | 2024-11-07 17:47 | XMS_ITS | Encounter Summary ---
Author Organization [facility] Address [address] [place] [address] Phone Care Team Providers Care Stock Mixer Name Role Phone Justen Gale MD Primary Care Provider David Roberts APRN, LEATHER SEASONER Unavailable [phone] Annel Rod MD Unavailable Reason for Visit * Reason Comments Medication Refill Encounter Details Date Type Department Care Team (Late st Contact Info) Description 03/02/2023 Refill [facility] Family [facility] #2 [place] [phone] Justen Gale MD #[address] [address] Medication Refill Social History Tobacco Use Types [...] Tamika Villarreal RN - 03/02/2023 8:51 AM SUPERVISOR RESIDENTIAL Medication failed the protocol, provider to review [...] Dept 01/17/23 Office Visit Catrina Quiñonez MD [facility] 09/16/22 Office Visit [facility] C[facility] Office Visit Pili Elkins APRN, CNP [facility] 05/02/22 Office Visit Justen Gale MD [facility] 03/03/22 Office Visit Pili Elkins APRN, NETTA [facility] Showing recent visits within past 365 days and meeting all other requirements Future Appointments No visits were found meeting these conditions. Showing future appointments within next 90 days and meeting all other requirements RVISOR RESIDENTIAL documented in this encounter Plan of Treatment Upcoming Encounters Date Type Department Care Team (Late st Contact Info) Description 11/13/2024 2:00 PM CDT [facility] 1 [place] [address] Angelito Alegria APRN, LEATHER SEASONER #[address] [address] Discharge Disposition: Discharged to home or Selfcare 11/19/2024 2:00 PM CDT Office Visit [facility] - [place] #[address] [place] [address] Annel Rod MD #[address] [address] documented as of this encounter Visit Diagnoses Not on filedocumented in this encounter Additional Health Concerns Infection Onset Date Last Indicated Resolved Time COVID - 19 08/01/2024 08/01/2024 08/01/2024 3:20 PM CDT Assessment Noted Time PHQ-9 Depression Total Score: 8 01/18/20 2:24 PM CDT documented as of this encounter Care Teams Stock Mixer Relationship Specialty Start Date End Date Justen Gale MD #[address] [address] PCP - General Family Medicine 10/17/17 David Roberts, ORE CRUSHER, LEATHER SEASONER #2 [place] [address] Nurse Practitioner Advanced Practice Nurse 01/31/22 Annel Rod MD #[address] [address] Consulting Physician Endocrinology 07/01/22 documented as of this encounter
--- NOTE | 2024-11-07 18:33 | ECG_ITS ---
Test Date: 2024-11-07 20:32:29 Measurements Intervals [place] Rate: 76 P: 62 IN: 132 QRS: 60 QRSD: 76 T: 48 QT: 388 QTc: 438 Interpretive Statements SINUS RHYTHM NORMAL ELECTROCARDIOGRAM Compared to ECG 09/27/2024 00:43:12 No significant changes Electronically Signed On 11-08-2024 07:42:57 CDT by Justen Jean-Baptiste M.D.
--- NOTE | 2024-11-07 18:53 | ED.GENADULT ---
HPI - General Adult General Chief complaint: Unspecified Stated complaint: swelling, dyspnea after starting steroids Time Seen by Provider: 11/07/24 17:30 History of Present Illness HPI narrative: Patient is a 69-year-old female who presents to the ER with complaints of subjective difficulty breathing, full body swelling due to steroid use, for palpitations, and increased exhaustion. She reports symptoms have been going on for approximately 2 days. Patient reports she called her primary care provider who advised her to come to the ER for further evaluation. She endorses a history of CHF, polymyositis (an autoimmune disease), diabetes, and sleep apnea. Patient denies any new onset shortness of breath, recent fevers, or acute back pain. Related Data Home Medications ?Medication ?Instructions ?Recorded ?Confirmed ?Last Taken ?Type exemestane 25 mg tablet 25 mg PO HS 01/06/20 10/12/24 10/12/24 History insulin glargine 100 unit/mL (3 40 unit subcut QAM 01/06/20 10/12/24 10/12/24 History mL) subcutaneous pen (Lantus Solostar U-100 Insulin) ropinirole 5 mg tablet 5 mg PO HS 01/06/20 10/12/24 10/07/24 History insulin lispro 100 unit/mL 32 unit subcut TID 03/19/22 10/12/24 10/12/24 History subcutaneous pen (Humalog KwikPen (U-100) Insulin) oxybutynin chloride 15 mg 15 mg PO DAILY 11/06/22 10/12/24 10/07/24 History tablet,extended release 24 hr gabapentin 300 mg capsule 300 mg PO TID 06/25/23 10/12/24 10/07/24 History prednisone 10 mg tablet 10 mg PO DAILY 10/08/24 10/12/24 10/12/24 History rivaroxaban 20 mg tablet (Xarelto) 20 mg PO 0900 10/08/24 10/12/24 10/12/24 History Allergies Allergy/AdvReac Type Severity Reaction Status Date / Time ceftriaxone Allergy Severe SOB Verified 11/07/24 15:42 cephalexin Allergy Severe Difficulty Verified 11/07/24 15:42 Breathing Cephalosporins Allergy Severe Difficulty Verified 11/07/24 15:42 Breathing lorazepam Allergy Severe Swelling Verified 11/07/24 15:42 trazodone Allergy Severe Swelling Verified 11/07/24 15:42 of Lip/Tongue/Throat metoclopramide Allergy Intermediate Other Verified 11/07/24 15:42 chlorhexidine Allergy Mild BLISTERING Verified 11/07/24 15:42 levofloxacin Allergy Mild Hives / Verified 11/07/24 15:42 Red Face ketorolac Allergy Itching Verified 11/07/24 15:42 latex Allergy Rash Verified 11/07/24 15:42 meropenem Allergy Rash Verified 11/07/24 15:42 nitrofurantoin Allergy Itching Verified 11/07/24 15:42 sulfamethoxazole (From Allergy Itching Verified 11/07/24 15:42 Sulfamethoxazole-Trimethoprim) trimethoprim (From Allergy Itching Verified 11/07/24 15:42 Sulfamethoxazole-Trimethoprim) clindamycin AdvReac Intermediate Nausea and Verified 11/07/24 15:42 Vomiting oxycodone AdvReac Mild Vomiting Verified 11/07/24 15:42 amlodipine AdvReac Swelling Verified 11/07/24 15:42 lisinopril AdvReac Swelling Verified 11/07/24 15:42 pregabalin AdvReac Swelling Verified 11/07/24 15:42 reslizumab AdvReac Unknown Verified 11/07/24 15:42 Review of Systems Review of Systems: All systems reviewed & are unremarkable except as noted in HPI and below PMFSH Past Medical History Medical History Gastroparesis Obstructive sleep apnea on CPAP Restless leg syndrome Pulmonary embolism positive for coagulation workup Deep venous thrombosis Type 2 diabetes mellitus Throat pain in adult Oral ulcer Chronic anticoagulation Overactive bladder Irritable bowel syndrome Congestive heart failure Chronic back pain Collagenous colitis Morbid obesity Breast cancer Depression Anxiety Peripheral neuropathy Kidney stone Multiple thyroid nodules Surgical History Surgical History History of umbilical hernia repair History of colonoscopy Status post insertion of spinal cord stimulator History of cystoscopy History of ureter stent History of cholecystectomy History of bilateral mastectomy History of esophagogastroduodenoscopy (EGD) History of right oophorectomy History of total right knee replacement History of cardiac catheterization Reportedly negative for coronary artery disease. Family History Family History Mother Diabetes mellitus Acute myocardial infarction Congestive heart failure Hypertension Cerebrovascular accident Coronary artery disease Father Prostate carcinoma Sibling Acute myocardial infarction Breast cancer Chronic obstructive pulmonary disease Social History Social History Social History: Surrogate medical decision maker: Jimmie Marques, spouse. Code status: Full code. Smoking packs per day: 0 Smoking cigarettes per day: 0.0 Years smoked: 2 Smoking pack-years: 0.00 Smoking status: Never smoker Second hand tobacco smoke exposure: Yes Alcohol intake: never Substance use: never Substance use type: does not use Do You Feel Safe in your Home?: Yes Lack of Transportation: YES Lack of Food: Never True Current Housing: I Have Housing Concerned About Future Housing: No Difficulty Paying Gas/Electric Bills: No Difficulty Paying for Meds: No Currently Unemployed: No Education: Associate Degree Difficulty w/ Childcare or Family Care: No Living arrangements: with family Additional occupation/education comments: Disabled. Spiritual care concerns: No Exam Narrative: GENERAL: Ill-appearing, obese, non-toxic, in no acute distress. HEAD: Normocephalic, atraumatic. NECK: Supple. No adenopathy, no masses. RESPIRATORY: Airway patent, respirations nonlabored. Clear to auscultation bilaterally, no rales, rhonchi, wheezing. CARDIOVASCULAR: Regular rate and rhythm without murmurs, rubs, or gallops. Peripheral pulses 2+ and equal bilaterally. + bilateral lower extremity edema. ABDOMINAL: Soft, nontender, nondistended, no hepatosplenomegaly. Normoactive BS. MUSCULOSKELETAL: Moves all extremities. Strength/ROM intact without gross deformities. + lower back pain SKIN: Warm, dry, normal color. No rashes. NEURO: A&O X3. Speech clear. Cranial nerves II-XII intact. No ataxic movements. PSYCHIATRIC: Appropriate mood and affect. Normal interaction. Course Vital Signs Vital signs: Vital Signs Temperature 36.8 C 11/07/24 15:40 Pulse Rate 94 11/07/24 15:40 Respiratory Rate 18 11/07/24 15:40 Blood Pressure 173/100 H 11/07/24 15:40 Pulse Oximetry 96 11/07/24 15:40 Oxygen Delivery Room Air 11/07/24 15:40 Temperature 36.8 C 11/07/24 15:40 Pulse Rate 83 11/07/24 19:15 Respiratory Rate 23 H 11/07/24 19:15 Blood Pressure 145/87 H 11/07/24 19:11 Pulse Oximetry 97 11/07/24 19:15 Oxygen Delivery Room Air 11/07/24 15:40 Medical Decision Making MDM Narrative Medical decision making narrative: Patient is a 69-year-old female who presents to the ER with complaints of subjective difficulty breathing, full body swelling due to steroid use, for palpitations, and increased exhaustion. She reports symptoms have been going on for approximately 2 days. Patient reports she called her primary care provider who advised her to come to the ER for further evaluation. She endorses a history of CHF, polymyositis (an autoimmune disease), diabetes, and sleep apnea. Patient denies any new onset shortness of breath, recent fevers, or acute back pain. Labs Ordered: CBC, CMP, lactic acid, TSH, UA, PTT, INR, BMP, magnesium Imaging Ordered: None necessary Medications Ordered: Morphine 4 mg IV x 2, 1 L normal saline IV bolus @ 500 per hour Results: Patient's CBC indicates a white blood cell count of 14.0 (she has recently been on steroids). Her coags indicate a PT of 22.5 seconds. Patient's chemistry indicates a sodium of 135, BUN of 18, creatinine of 0.6, and glucose of 189. Her pro BMP and TSH were within normal limits. Patient's urinalysis was unremarkable. Diagnosis: Reaction to medication (steroids), stress, chronic pain Patient Education/Shared MDM: Results of lab work shared with patient. She endorses significant improvement of symptoms following medication administration. Patient reports she has been experiencing significant stress home recently with having to be the primary caregiver for her ill . She reports she has not been doing a good job caring for herself and she also believes the recent steroid use has produced some of her symptoms. Patient strongly advised to maintain hydration status upon discharge and follow-up with their PCP as soon as possible. She will not be discharged home with any new prescriptions. Strict return precautions provided. Patient verbalized understanding and is in agreement with plan. Vital signs stable at time of discharge. All questions answered. Differential Diagnosis Differential Diagnosis: Abnormal thyroid, urinary tract infection, congestive heart failure, infectious process, reaction to medication Vital Signs Vital Signs: Vital Signs Temperature 36.8 C 11/07/24 15:40 Pulse Rate 94 11/07/24 15:40 Respiratory Rate 18 11/07/24 15:40 Blood Pressure 173/100 H 11/07/24 15:40 Pulse Oximetry 96 11/07/24 15:40 Oxygen Delivery Room Air 11/07/24 15:40 Temperature 36.8 C 11/07/24 15:40 Pulse Rate 83 11/07/24 19:15 Respiratory Rate 23 H 11/07/24 19:15 Blood Pressure 145/87 H 11/07/24 19:11 Pulse Oximetry 97 11/07/24 19:15 Oxygen Delivery Room Air 11/07/24 15:40 Lab Data Lab results reviewed: Yes I reviewed the patient's lab results. 11/07/24 19:13 11/07/24 19:13 Labs: Lab Results 11/07/24 11/07/24 11/07/24 Range/Units 19:13 20:01 21:22 WBC 14.0 H (4.5-10.0) K/mm3 RBC 4.31 (4.2-5.4) M/mm3 Hgb 12.4 (12.0-15.0) g/dL Hct 39.6 (37.0-47.0) % MCV 91.9 (80-100) fl MCH 28.8 (26-34) pg MCHC 31.3 L (32-36) g/dl RDW 14.0 (11.5-14.5) % Plt Count 257 (150-375) k/mm3 MPV 9.9 (7.4-10.4) fl Immature Gran % (Auto) 0.6 H (0-0.5) % Neut % (Auto) 75.9 H (45.5-73.1) % Lymph % (Auto) 17.0 L (18.3-44.2) % Beauregard % (Auto) 5.8 (2.6-8.5) % Eos % (Auto) 0.3 (0-4.4) % Baso % (Auto) 0.4 (0.2-1.2) % Lymph # (Auto) 2.37 (0.9-3.2) K/mm3 Beauregard # (Auto) 0.8 H (0.1-0.6) K/mm3 Eos # (Auto) 0.0 (0-0.3) K/mm3 Baso # (Auto) 0.1 (0.0-0.1) K/mm3 Abs Immat Gran (auto) 0.08 H (0.00-0.031) K/mm3 Absolute Neuts (auto) 10.6 H (1.3-6.7) K/mm3 Absolute Nucleated RBC 0.000 (0.0-0.012) K/mm3 Nucleated RBC % 0.0 (0.0-0.2) % PT 22.5 H (11.1-14.7) Seconds INR 2.0 APTT 33.0 (22.3-36.8) Seconds Sodium 135 L (137-145) mmol/L Potassium 4.4 (3.4-5.0) mmol/L Chloride 102 (98-107) mmol/L Carbon Dioxide 27 (22-30) mmol/L Anion Gap 6 (4-12) mmol/L BUN 18 H (7-17) mg/dL Creatinine 0.60 L (0.7-1.0) mg/dL Estim Creat Clear Calc 96 ml/min Estimated GFR > 60 (59 - ) Glucose 189 H (65-110) mg/dL Lactic Acid 1.1 (0.7-2.0) mmol/L Calcium 9.4 (8.4-10.2) mg/dL Magnesium 1.8 (1.6-2.3) mg/dL Total Bilirubin 0.5 (0.2-1.3) mg/dL AST 32 (14-36) U/L ALT 31 (6-35) U/L Alkaline Phosphatase 57 (38-126) U/L NT-Pro-B Natriuret Pep 78 (19.9-100) pg/mL Total Protein 7.5 (6.3-8.2) g/dL Albumin 3.8 (3.5-5.1) g/dL TSH (Reflex) 1.720 (0.465-4.68) uIU/mL Urine Color Yellow (Yellow) Urine Appearance Clear (Clear) Urine pH 7.5 (5.0-9.0) Ur Specific Cody 1.021 (1.001-1.035) Urine Protein Trace (Negative) mg/dL Urine Glucose (UA) 1+ H (Negative) mg/dL Urine Ketones Negative (Negative) mg/dL Ur Blood (Man) Negative (Negative) Urine Nitrate Negative (Negative) Urine Bilirubin Negative (Negative) Urine Urobilinogen 1.0 (<2.0) mg/dL Add Ur Microanalysis Reviewed Leukocyte Esterase Rfl Negative (Negative) PAO/UL Urine RBC 6-10 H (0-2) /hpf Urine WBC 0-5 (0-3) /hpf Ur Squamous Epith Cells None seen (Few) /hpf Urine Bacteria None seen /hpf Urine Casts 0-2 Urine Mucus Present /lpf Discharge Plan Discharge Clinical Impression: Adverse effect of anabolic steroid, Dizziness, Stress at home Patient Disposition: Home Condition: Stable Instructions: Antibiotic Form Additional Instructions: Please return to the ER with any worsening symptoms. Follow-up with primary care provider as soon as possible. Take all medications as prescribed, including regularly scheduled medications. Patient Language: Amharic Prescriptions: No Action gabapentin 300 mg capsule 300 mg PO TID exemestane 25 mg tablet 25 mg PO HS ropinirole 5 mg tablet 5 mg PO HS insulin glargine [Lantus Solostar U-100 Insulin] 100 unit/mL (3 mL) insulin pen 40 unit SUBCUT QAM insulin lispro [Humalog KwikPen Insulin] 100 unit/mL insulin pen 32 unit SUBCUT TID Patient Comments: PATIENT EXPERIENCES LOW BLOOD SUGAR IN THE HOSPITAL albuterol sulfate 90 mcg/actuation HFA aerosol inhaler 1 inh inhalation QID PRN (Reason: shortness of breath or wheezing) Qty: 6.7 0RF oxybutynin chloride 15 mg tablet extended release 24hr 15 mg PO DAILY ondansetron 4 mg tablet,disintegrating 4 mg PO Q8H PRN (Reason: nausea and vomiting) Qty: 10 0RF lidocaine 5 % ointment 1 applic topical TID PRN (Reason: skin irritation) Qty: 50 0RF prednisone 10 mg tablet 10 mg PO DAILY Xarelto 20 mg tablet 20 mg PO 0900 linezolid 600 mg tablet 600 mg PO Q12H 5 Days Qty: 10 0RF pantoprazole [Protonix] 40 mg tablet,delayed release (DR/EC) 40 mg PO BID 30 Days Qty: 60 0RF sucralfate 1 gram Tablet 1 g PO ACHS 21 Days Qty: 84 0RF hydrocodone-acetaminophen 10-325 mg tablet 1 tablet PO Q6H PRN (Reason: pain (scale score 7-10)) 5 Days Qty: 10 0RF Follow-up/Referrals: Shahla,Justen Spicer MD [Primary Care Provider] - Time of Disposition: 22:58
[2024-11-07 19:06] VITALS: PULSE 79
[2024-11-07 19:08] VITALS: RESP 21; O2SAT 97
[2024-11-07 19:11] VITALS: BP 145/87; PULSE 79; RESP 23; O2SAT 94
[2024-11-07 19:15] VITALS: PULSE 83; RESP 23; O2SAT 97
[2024-11-07] MEDS: MORPHINE SULFATE (*CRX) 4 MG/ML INJ IV PUSH ×2 (19:19→23:11)
[2024-11-07 19:20] LABS: Hematocrit 39.6 % (37.0-47.0); Hemoglobin 12.4 g/dL (12.0-15.0); Immature Granulocyte Percent A 0.6 % (0-0.5); Lymphocytes Absolute Auto 2.37 K/mm3 (0.9-3.2); Mean Corpuscular HGB Conc 31.3 g/dl (32-36); Mean Corpuscular Hemoglobin 28.8 pg (26-34); Mean Corpuscular Volume 91.9 fl (80-100); Nucleated Red Blood Cells Absolute Auto 0.000 K/mm3 (0.0-0.012); Nucleated Red Blood Cells Perc 0.0 % (0.0-0.2); Platelet Count Result 257 k/mm3 (150-375); Red Blood Count 4.31 M/mm3 (4.2-5.4); White Blood Count 14.0 K/mm3 (4.5-10.0)
[2024-11-07 19:39] LABS: INR 2.0; Partial Thromboplastin Time 33.0 Seconds (22.3-36.8); Prothrombin Time 22.5 Seconds (11.1-14.7)
[2024-11-07 20:02] LABS: Alanine Aminotransferase 31 U/L (6-35); Albumin Level 3.8 g/dL (3.5-5.1); Alkaline Phosphatase 57 U/L (38-126); Anion Gap 6 mmol/L (4-12); Aspartate Amino Transferase 32 U/L (14-36); Bilirubin,Total 0.5 mg/dL (0.2-1.3); Blood Urea Nitrogen 18 mg/dL (7-17); Calcium 9.4 mg/dL (8.4-10.2); Carbon Dioxide 27 mmol/L (22-30); Chloride 102 mmol/L (98-107); Estimated CRCL calculation 96 ml/min; Estimated Glomerular Filt Rate > 60; Glucose 189 mg/dL (65-110); Magnesium 1.8 mg/dL (1.6-2.3); Potassium 4.4 mmol/L (3.4-5.0); Sodium 135 mmol/L (137-145); Total Protein 7.5 g/dL (6.3-8.2)
[2024-11-07] MEDS: SODIUM CHLORIDE 0.9% IV 1,000 ML 500 ML IV CONT (20:06)
[2024-11-07 20:11] LABS: NT Pro B Type Natriuretic Pept 78 pg/mL (19.9-100)
[2024-11-07 20:27] LABS: Add Urine Microscopic? YES; Appearance Urine Clear (Clear); Glucose Urine UA 1+ mg/dL (Negative); Leukocyte Esterase Ur Negative LEU/UL (Negative); Need Manual Microscopic Reviewed; Nitrate Urine Negative (Negative); Non Pathogenic Casts 0-2; Specific Grav Ur 1.021 (1.001-1.035)
[2024-11-07 22:15] LABS: Thyroid Stimulating Hormone Reflex 1.720 uIU/mL (0.465-4.68)
[2024-11-08 00:41] VITALS: BP 145/87; PULSE 88; RESP 24; O2SAT 97
== END 2024-11-07 23:12 | disposition home or self-care (01) ==
PROVIDERS: Emergency Provider Registered Nurse; PCP Internal Medicine
DX: R42 Dizziness and giddiness (principal); T38.7X5A Adverse effect of androgens and anabolic congeners, initial encounter; F43.9 Reaction to severe stress, unspecified; I50.9 Heart failure, unspecified; G47.30 Sleep apnea, unspecified; E11.43 Type 2 diabetes mellitus with diabetic autonomic (poly)neuropathy; K31.84 Gastroparesis; E11.42 Type 2 diabetes mellitus with diabetic polyneuropathy; E66.01 Morbid (severe) obesity due to excess calories; Z68.43 Body mass index [BMI] 50.0-59.9, adult; K58.9 Irritable bowel syndrome, unspecified; M33.20 Polymyositis, organ involvement unspecified; N32.81 Overactive bladder; G47.33 Obstructive sleep apnea (adult) (pediatric); F32.A Depression, unspecified; F41.9 Anxiety disorder, unspecified; Z86.711 Personal history of pulmonary embolism; Z86.718 Personal history of other venous thrombosis and embolism; Z85.3 Personal history of malignant neoplasm of breast; Z87.442 Personal history of urinary calculi; Z96.82 Presence of neurostimulator; Z96.651 Presence of right artificial knee joint; Z90.49 Acquired absence of other specified parts of digestive tract; Z90.13 Acquired absence of bilateral breasts and nipples; Z90.721 Acquired absence of ovaries, unilateral; Z77.22 Contact with and (suspected) exposure to environmental tobacco smoke (acute) (chronic); Z79.4 Long term (current) use of insulin; Z79.899 Other long term (current) drug therapy; Z79.01 Long term (current) use of anticoagulants
CPT/HCPCS: 36415; 80053; 81001; 83605; 83735; 83880; 84443; 85025; 85610; 85730; 93005; 96361; 96374; 96376; 99284; J2270; J7030

== ENCOUNTER 2024-11-12 13:31 | Emergency (ER) | payer MEDICARE, MEDICAID, SELFPAY ==
[2024-11-12 13:33] VITALS: BP 153/76; PULSE 92; RESP 18; TEMP 36.6; O2SAT 97
--- OUTSIDE RECORDS SUMMARY | 2024-11-12 13:37 | XMS_ITS | Encounter Summary ---
Author Organization [facility] Address [address] [place] [address] Phone Care Team Providers Care Stock Transfer Clerk Name Role Phone Justen Gale MD Primary Care Provider David Roberts APRN, MIME ARTIST Unavailable Annel Rod MD Unavailable Reason for Visit * Reason Onset Date Comments Medication Refill 08/06/2020 Encounter Details Date Type Department Care Team (Late st Contact Info) Description 08/06/2020 Refill [facility] #[facility] [place] [phone] Justen Gale MD #[address] [address] Medication Refill Social History Tobacco Use Types [...] Outpatient Visits 2 weeks ago [facility] Pili Mueller APN, MIME ARTIST 2 months ago Increased urinary frequency [facility] Pili Mueller APN, MIME ARTIST 5 months ago Urinary frequency [facility] Pili Mueller APN, MIME ARTIST 8 months ago Type 2 diabetes mellitus with diabetic polyneuropathy, with long- term current use of insulin (HCC) [facility] Pili Mueller APN, MIME ARTIST 9 months ago [facility] Justen Urbano MD Upcoming Appointments Future Appointments In 6 days Pili Elkins APN, MIME ARTIST [facility] CATALOGUE COMPILER - Recent and Past Visits Recent Visits Date Type Provider Dept 07/20/20 Office Visit Pili Elkins APN, MIME ARTIST [facility] 06/05/20 Office Visit Pili Elkins APN, NETTA [facility] 02/17/20 Office Visit Pili Elkins APN, NETTA [facility] 12/03/19 Office Visit Pili Elkins APN, NETTA [facility] 11/05/19 Telemedicine Justen Gale MD [facility] 07/25/19 Telemedicine [facility] Showing recent visits within past 460 days with a meds authorizing provider and meeting all other requirements Future Appointments Date Type Provider Dept 08/12/20 Appointment Pili Elkins APN, CNP [facility] Showing future appointments within next 90 days [...] Info) Description 11/13/2024 2:00 PM CDT [facility] [address] [place] [address] Angelito Alegria APRN, NETTA #[address] [address] Discharge Disposition: Discharged to home or Selfcare 11/19/2024 2:00 PM CDT [facility] [place] #2 [place] [address] Annel Rod MD #[address] [address] documented as of this encounter Visit Diagnoses Not on filedocumented in this encounter Additional Health Concerns Infection Onset Date Last Indicated Resolved Time COVID - 19 08/01/2024 08/01/2024 08/01/2024 3:20 PM CDT Assessment Noted Time PHQ-9 Depression Total Score: 0 07/21/19 3:00 PM CDT documented as of this encounter Care Teams Stock Transfer Clerk Relationship Specialty Start Date End Date Justen Gale MD #[address] [address] PCP - General Family Medicine 10/17/17 David Roberts APRN, MIME ARTIST #2 [place] [address] Nurse Practitioner Advanced Practice Nurse 01/31/22 Annel Rod MD #[address] [address] Consulting Physician Endocrinology 07/01/22 documented as of this encounter
--- OUTSIDE RECORDS SUMMARY | 2024-11-12 13:37 | XMS_ITS | Referral Summary ---
Author Organization [facility] Address [address] [place] [address] Care Team Providers Care Lamp Developer Name Role Phone Liu Jerez MD Unavailable Albert Corbin MD Unavailable [phone] Justen Gale MD Primary Care Provider [phone] Khris Arthur MD Unavailable [phone] Ko Melendez MD Unavailable John Paul Moyer MD Unavailable Annel Rod MD Unavailable Anali MARSHALL MD, Carlos M. Unavailable [phone] Allergies Active Allergy Reactions Criticality Noted Date [...] Assessment & Plan (05/26/2024 10:08 AM ELECTRICIAN CONTROL EQUIPMENT): Presenting with urinary symptoms of right flank [...] Assessment & Plan (05/25/2024 7:52 AM ELECTRICIAN CONTROL EQUIPMENT): Hx of breast cancer c/b DVT/bilateral Pes [...] Assessment & Plan (05/22/2024 1:14 PM ELECTRICIAN CONTROL EQUIPMENT): -long-standing chronic back pain -CT L spine [...] complication, without long-term current use of insulin ([facility]) 10/23/2017 Assessment & Plan (10/23/2017 [...] Assessment & Plan (05/22/2024 12:29 PM ELECTRICIAN CONTROL EQUIPMENT): -Hx stage II, ER positive, HER2 negative [...] Assessment & Plan (05/22/2024 12:33 PM ELECTRICIAN CONTROL EQUIPMENT): -Hx LUL -Hospital provided CPAP ordered History of DVT (deep vein thrombosis) 08/01/2017 History of pulmonary embolism 08/01/2017 Generalized weakness 07/27/2017 Dyspnea 07/27/2017 Unintentional weight loss 07/27/2017 Acute cystitis without hematuria 07/27/2017 Nausea and vomiting 07/26/2017 Overview (07/28/2017): Added automatically from request for surgery [id number] Pulmonary embolism 08/09/2016 Assessment & Plan (10/23/2017 2:05 AM CDT): On Rivaroxaban Lymphedema of left upper extremity 08/09/2016 Assessment & Plan (05/25/2024 7:53 AM ELECTRICIAN CONTROL EQUIPMENT): S/p L axillary lymph node dissection 2014, [...] Assessment & Plan (05/22/2024 11:18 AM ELECTRICIAN CONTROL EQUIPMENT): -continue home Requip 5mg nightly Pain of lower extremity 03/12/2013 Overview (07/29/2016): Leg pain Essential hypertension Assessment & Plan (05/23/2024 10:42 AM ELECTRICIAN CONTROL EQUIPMENT): -Chart history of HTN but not on meds -BP elevated on admission, likely some pain contributing -Monitor closely once pain under adequate control, discussed following up with PCP for this Chronic anticoagulation Restless leg syndrome 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 More than 4 times per year [...] a care home (including now)? No 08/15/2023 Housing Stability [...] any time in the past 12 m [facility], were you homeless or living in a care home (including now)? No 05/24/2024 Personal Safety Answer Date Recorded Have you ever been in or are you currently in a harmful physical or emotional relationship or is someone making you feel afraid or unsafe? Denies 07/01/2024 Comments No Sex and Gender Information Value Date Recorded Sex Assigned at Not on file Legal Sex Female 12:24 AM ELECTRICIAN CONTROL EQUIPMENT Gender Identity Not on file Sexual Orientation [...] CDT HEMOGLOBIN A1C STAT 05/21/2024 4:20 PM ELECTRICIAN CONTROL EQUIPMENT LIPID PANEL STAT 05/21/2024 4:20 PM ELECTRICIAN CONTROL EQUIPMENT DEXA AXIAL SKELETON BONE DENSITY 1 OR [...] last reviewed 2021. Testing performed by: [facility], [address] [place] [address]., [id number] Blood 07/01/2024 2:02 PM CDT 07/01/2024 2:12 PM CDT us Ilana Stevens MD LAB BLOOD ORDERABLES F inal Result MARY JANE [address] [facility] Department [place] [address] * (ABNORMAL) Hemoglobin A1c (05/21/2024 4:20 PM ELECTRICIAN CONTROL EQUIPMENT) Hgb A1C 8.7(H) 4.0 - 5.6 % Estimated Average Glucose 203 mg/dL [facility] Comment: The ADA recommends reporting an estimated Average Glucose (eAG) with all Hemoglobin A1c results using the equation derived from a study of 507 normal and diabetic adults. Minority populations were underrepresented and children were not included. (Diabetes Care 2020; 43(S1): S66-S76). The eAG is not equivalent to a fasting glucose. Blood 05/21/2024 4:20 PM ELECTRICIAN CONTROL EQUIPMENT 05/21/2024 4:55 PM ELECTRICIAN CONTROL EQUIPMENT us Leo Henry MD LAB BLOOD ORDERABLES Final Result [facility] Department [place] [address] * (ABNORMAL) Lipid panel (05/21/2024 4:20 PM ELECTRICIAN CONTROL EQUIPMENT) Cholesterol 205(H) 30 - 199 mg/dL Comment: [...] revised on 2017. Triglycerides 92 <=149 mg/dL [facility] Comment: Interpretive [...] HDL 55 >=40 mg/dL [facility] Comment: Interpretive Data Ages < or [...] calculated 134(H) <=129 mg/dL [facility] Comment: Interpretive Data Ages < or [...] 2023. Non-HDL Cholesterol 150 mg/dL [facility] Comment: Interpretive Data Ages < or [...] [facility] Blood 05/21/2024 4:20 PM ELECTRICIAN CONTROL EQUIPMENT 05/21/2024 4:50 PM ELECTRICIAN CONTROL EQUIPMENT Narrative [facility] - 05/22/2024 4:17 PM ELECTRICIAN CONTROL EQUIPMENT Reflex us Leo Henry MD LAB BLOOD ORDERABLES Final Result [facility] Department [place] [address] * Dexa Axial Skeleton Bone Density 1 or 2 Site (08/02/2022 10:53 AM CDT) Anatomical Region Laterality Modality Body N/A Radiographic Lizeth ging Narrative 08/02/2022 3:34 PM CDT Patient Name: Karly Marques Date of : 1955 Date of scan: 08/02/2022 Bone mineral density was performed on a [employer] in the Air Discovery Densitometer. Based on machine cross-calibration and [...] by the International Society of Clinical Densitometry. [id number] Khris Arthur MD [facility] DXA PROCEDURES F inal Result * COLONOSCOPY [...] this written report and agrees with it. [facility]# Date Time Exam [id number] Aug 19, 2016 14:27:00 [facility] [id number] Diag Mamm, inc CAD, unilat L Technologist(s): Carla Harris; ; [id number] Aug 19, 2016 15:39:00 [facility] [address]26 Breast US unilateral, ltd L ACC# Date Time Exam [id number] Aug 19, 2016 14:27:00 [facility] [address] Diag Mamm, inc CAD, unilat L Technologist(s): Carla Harris; ; [id number] Aug 19, 2016 15:39:00 [facility] [address]47[address] Breast US unilateral, ltd L EXAMINATION: LEFT [...] SARABIA M.D. on Aug 19 2016 4:20P [id number] Procedure Note Miscellaneous, Not In File / Provider, Historical, MD - 09/17/2016 ANTHONY SARABIA M.D. JUDY RINCON M.D. FINAL REPORT The radiology attending physician has personally reviewed this study, and has reviewed and/or edited this written report and agrees with it. ACC# Date Time Exam [id number] Aug 19, 2016 14:27:00 [facility] [address] Diag Mamm, inc CAD, unilat L Technologist(s): Carla Harris; ; [id number] Aug 19, 2016 15:39:00 [facility] [id number] Breast US unilateral, ltd L ACC# Date Time Exam [id number] Aug 19, 2016 14:27:00 [facility] [address] Diag Mamm, inc CAD, unilat L Technologist(s): Carla Harris; ; [id number] Aug 19, 2016 15:39:00 C [id number] Breast US unilateral, ltd L EXAMINATION: LEFT [...] SARABIA M.D. on Aug 19 2016 4:20P [id number] us Not In File Miscellaneous IMG MAMMO PROCEDURES F inal Result from Last 3 Months or Most Recently Relevant to Health Maintenance Insurance [facility] MEDICARE ADVANTAGE [facility] MEDICARE AD[facility]ANT[facility] Address: [address] [address] [place] [address] [employer] MEDICARE ADVANTAGE Advance Directives For more information, please contact: [phone] Documents on File Type Date Recorded Patient Steel Heater Expl anation ADVANCE DIRECTIVE 12/23/2021 2:49 PM Power of Plc Programmer-Medical ADVANCE DIRECTIVE 12/23/2021 2:49 PM Living [...] First Alternate Health Care Agent Care Teams Lamp Developer Relationship Specialty Start Date End Date Justen Gale MD 2 [facility] [address] [place] [address] PCP - General 10/09/17 Liu Jerez MD Consulting Physician Gastroenterology 07/28/17 [place] [address] [facility] [address] [place] [address] Consulting Physician Pulmonary Disease 08/03/17 Khris Arthur MD [address] [facility] [address] [place] [address] Medical Oncologist/Agency Sales Director Medical Oncology 10/23/17 [place] [address] [facility] [address] [place] [address] Surgeon Orthopedic Surgery 10/23/17 [place] [address] [facility] [address] [place] [address] Consulting Physician Pain Management 10/23/17 [place] [address] [facility] [address] [place] [address] Referring Physician General Surgery 01/26/18 [place] [address] [facility] [address] [place] [address] Consulting Physician Neurology 01/26/18
--- OUTSIDE RECORDS SUMMARY | 2024-11-12 13:37 | XMS_ITS | Encounter Summary ---
Author Organization [facility] Address [address] [place] [address] Phone Care Team Providers Care Sales Support Representative Name Role Phone Justen Gale MD Primary Care Provider David Roberts APRN, INDUSTRIAL PHOTOGRAPHER Unavailable Annel Rod MD Unavailable Reason for Visit * Reason Onset Date Comments Sore Throat 06/29/2020 Encounter Details Date Type Department Care Team (Late st Contact Info) Description 06/29/2020 Telephone [facility] [address] [place] [address] Justen Gale MD #[address] [address] Sore Throat Social History Tobacco Use Types [...] COVID-19? No / Unsure 06/29/2020 8:43 AM MICROSTRATEGY DEVELOPER documented as of this encounter Miscellaneous Notes * Telephone Encounter - Gail Lucero RN - 06/29/2020 3:53 PM CST Attempted to call mailbox is full. Pt does not need testing OSTRATEGY DEVELOPER * Telephone Encounter - Vince Hermosillo MD - 06/29/2020 3:13 PM CST No covid testing needed. If the er thought that it was warranted then they would have done this. OSTRATEGY DEVELOPER * Telephone Encounter - Marlys Sorensen RN - 06/29/2020 8:36 AM CST Patient calling. Patient is calling to schedule Hospital/ED/Prompt-Care follow up appointment. Hospital/ED/Prompt-Care Site: [facility] ED Records Requested: Yes Reason for Hospitalization/ED/Prompt-Care [...] f/up and yearly PAP appointments? Please advise. OSTRATEGY DEVELOPER documented in this encounter Plan of Treatment Upcoming Encounters Date Type Department Care Team (Late st Contact Info) Description 11/13/2024 2:00 PM CDT Appointment [facility]iology Services [address] [place] [address] Angelito Alegria APRN, INDUSTRIAL PHOTOGRAPHER #2 [facility] [address] [place] [address] Discharge Disposition: Discharged to home or Selfcare 11/19/2024 2:00 PM CDT Office Visit [facility] - [place] #2 [place] [address] Annel Rod MD #2 [facility] [address] [place] [address] documented as of this encounter Visit Diagnoses Not on filedocumented in this encounter Additional Health Concerns Infection Onset Date Last Indicated Resolved Time COVID - 19 08/01/2024 08/01/2024 08/01/2024 3:20 PM CDT Assessment Noted Time PHQ-9 Depression Total Score: 0 09/08/19 19 1:00 PM CDT documented as of this encounter Care Teams Sales Support Representative Relationship Specialty Start Date End Date Justen Gale MD #2 [facility] [address] [place] [address] PCP - General Family Medicine 10/17/17 David Roberts APRN, INDUSTRIAL PHOTOGRAPHER #2 [place] [address] Nurse Practitioner Advanced Practice Nurse 01/31/22 Annel Rod MD #2 [facility] [address] [place] [address] Consulting Physician Endocrinology 07/01/22 documented as of this encounter
--- OUTSIDE RECORDS SUMMARY | 2024-11-12 13:37 | XMS_ITS ---
Author Organization [facility] Address [address] [place] [address] Care Team Providers Care Marine Electrician Helper Name Role Phone Liu Jerez MD Unavailable [phone] Albert Corbin MD Unavailable [phone] Justen Gale MD Primary Care Provider Khris Arthur MD Unavailable [phone] Ko Melendez MD Unavailable John Paul Moyer MD Unavailable Annel Rdo MD Unavailable Anali MARSHALL MD, Carlos M. Unavailable Active Problems Problem Noted Date Diagnosed Date Urinary tract infection 05/22/2024 Assessment & Plan (05/26/2024 10:08 AM AUTOPSY PATHOLOGIST): Presenting with urinary symptoms of right flank [...] 05/22/2024 Assessment & Plan (05/25/2024 7:52 AM AUTOPSY PATHOLOGIST): Hx of breast cancer c/b DVT/bilateral Pes [...] 05/22/2024 Assessment & Plan (05/22/2024 1:14 PM AUTOPSY PATHOLOGIST): -long-standing chronic back pain -CT L spine [...] without long-term current use of insulin ([facility]) 10/23/2017 Assessment & [...] 10/13/2017 Assessment & Plan (05/22/2024 12:29 PM AUTOPSY PATHOLOGIST): -Hx stage II, ER positive, HER2 negative [...] 08/01/2017 Assessment & Plan (05/22/2024 12:33 PM AUTOPSY PATHOLOGIST): -Hx LUL -Hospital provided CPAP ordered History of DVT (deep vein thrombosis) 08/01/2017 History of pulmonary embolism 08/01/2017 Generalized weakness 07/27/2017 Dyspnea 07/27/2017 Unintentional weight loss 07/27/2017 Acute cystitis without hematuria 07/27/2017 Nausea and vomiting 07/26/2017 Overview (07/28/2017): Added automatically from request for surgery [id number] Pulmonary embolism 08/09/2016 Assessment & Plan (10/23/2017 2:05 AM CDT): On Rivaroxaban Lymphedema of left upper extremity 08/09/2016 Assessment & Plan (05/25/2024 7:53 AM AUTOPSY PATHOLOGIST): S/p L axillary lymph node dissection 2014, [...] syndrome Assessment & Plan (05/22/2024 11:18 AM AUTOPSY PATHOLOGIST): -continue home Requip 5mg nightly Pain of lower extremity 03/12/2013 Overview (07/29/2016): Leg pain Essential hypertension Assessment & Plan (05/23/2024 10:42 AM AUTOPSY PATHOLOGIST): -Chart history of HTN but not on meds -BP elevated on admission, likely some pain contributing -Monitor closely once pain under adequate control, discussed following up with PCP for this Chronic anticoagulation Restless leg syndrome 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
--- OUTSIDE RECORDS SUMMARY | 2024-11-12 13:37 | XMS_ITS | Encounter Summary ---
Author Organization [facility] Address [address] [place] [address] Phone Care Team Providers Care Contracts Officer Name Role Phone Justen Gale MD Primary Care Provider David Roberts APRN, MAIL HANDLER SORTER Unavailable [phone] Annel Rod MD Unavailable Reason for Visit * Reason Comments Medication Refill Encounter Details Date Type Department Care Team (Late st Contact Info) Description 03/13/[address] [facility] [address] [place] [address] Justen Gale MD #[address] [address] Medication Refill Social History Tobacco [...] COVID-19? No / Unsure 03/02/2021 5:05 PM DIRECTOR OF CUSTOMER SERVICE documented as of this encounter Plan of Treatment Upcoming Encounters Date Type Department Care Team (Late st Contact Info) Description 11/13/2024 2:00 PM CDT Appointment [facility] Cardiology Services 1 [place] [address] Angelito Alegria, DATA ANALYSIS MANAGER, MAIL HANDLER SORTER #2 [facility] [address] [place] [address] Discharge Disposition: Discharged to home or Selfcare 11/19/2024 2:00 PM CDT Office Visit [facility] #2 [place] [address] Annel Rod MD #2 [facility] [address] [place] [address] documented as of this encounter Visit Diagnoses Not on filedocumented in this encounter Additional Health Concerns Infection Onset Date Last Indicated Resolved Time COVID - 19 08/01/2024 08/01/2024 08/01/2024 3:20 PM CDT Assessment Noted Time PHQ-9 Depression Total Score: 0 07/21/19 21 3:00 PM CDT documented as of this encounter Care Teams Contracts Officer Relationship Specialty Start Date End Date Justen Gale MD #[address] [address] PCP - General Family Medicine 10/17/17 David Roberts APRN, MAIL HANDLER SORTER #2 [place] [address] Nurse Practitioner Advanced Practice Nurse 01/31/22 Annel Rod MD #2 [place] [id number] Consulting Physician Endocrinology 07/01/22 documented as of this encounter
--- OUTSIDE RECORDS SUMMARY | 2024-11-12 13:37 | XMS_ITS | Encounter Summary ---
Author Organization [facility] Address [address] [place] [address] Phone Care Team Providers Care Cherry Dipper Name Role Phone Justen Gale MD Primary Care Provider David Roberts APRN, DIRECTOR COMMUNITY ORGANIZATION Unavailable Annel Rod MD Unavailable Reason for Visit * Reason Comments Medication Refill Encounter Details Date Type Department Care Team (Late st Contact Info) Description 02/17/2021 Refill [facility] #2 [place] [id number] Justen Gale MD #[address] [address] Medication Refill Social History Tobacco Use Types [...] Mcgee 06/05/20 Office Visit Pili Elkins APRN, DIRECTOR COMMUNITY ORGANIZATION [facility] Showing recent visits within past 365 days and meeting all other requirements Future Appointments Date Type Provider Dept 03/02/21 Appointment Vince Hermosillo MD [facility] Showing future appointments within next 90 days and meeting all other requirements documented in this encounter Plan of Treatment Upcoming Encounters Date Type Department Care Team (Late st Contact Info) Description 11/13/2024 2:00 PM CDT Appointment [facility] 1 [place] [address] Angelito Alegria APRN, DIRECTOR COMMUNITY ORGANIZATION #[address] [address] Discharge Disposition: Discharged to home or Selfcare 11/19/2024 2:00 PM CDT Office Visit [facility] - Endocrinology [facility] #2 [place] [address] Annel Rod MD #2 [facility] [address] [place] [address] documented as of this encounter Visit Diagnoses Not on filedocumented in this encounter Additional Health Concerns Infection Onset Date Last Indicated Resolved Time COVID - 19 08/01/2024 08/01/2024 08/01/2024 3:20 PM CDT Assessment Noted Time PHQ-9 Depression Total Score: 0 07/21/19 3:00 PM CDT documented as of this encounter Care Teams Cherry Dipper Relationship Specialty Start Date End Date Justen Gale MD #[address] [address] PCP - General Family Medicine 10/17/17 David Roberts APRN, DIRECTOR COMMUNITY ORGANIZATION #2 [place] [address] Nurse Practitioner Advanced Practice Nurse 01/31/22 Annel Rod MD #[address] [address] Consulting Physician Endocrinology 07/01/22 documented as of this encounter
--- OUTSIDE RECORDS SUMMARY | 2024-11-12 13:37 | XMS_ITS | Clinical Summary ---
Author Organization [facility] Address [address] [place] [address] Care Team Providers Care Plastics Technician Name Role Phone Liu Jerez MD Unavailable Albert Corbin MD Unavailable Justen Gale MD Primary Care Provider Khris Arthur MD Unavailable [phone] Ko Melendez MD Unavailable [phone] John Paul Moyer MD Unavailable Annel Rod [...] 05/22/2024 Assessment & Plan (05/26/2024 10:08 AM BROADCAST TECHNICIAN): Presenting with urinary symptoms of right [...] 05/22/2024 Assessment & Plan (05/25/2024 7:52 AM BROADCAST TECHNICIAN): Hx of breast cancer c/b DVT/bilateral [...] 05/22/2024 Assessment & Plan (05/22/2024 1:14 PM BROADCAST TECHNICIAN): -long-standing chronic back pain -CT L [...] current use of insulin ([facility]) 10/23/2017 Assessment & Plan [...] 10/13/2017 Assessment & Plan (05/22/2024 12:29 PM BROADCAST TECHNICIAN): -Hx stage II, ER positive, HER2 [...] 08/01/2017 Assessment & Plan (05/22/2024 12:33 PM BROADCAST TECHNICIAN): -Hx LUL -Hospital provided CPAP ordered History of DVT (deep vein thrombosis) 08/01/2017 History of pulmonary embolism 08/01/2017 Generalized weakness 07/27/2017 Dyspnea 07/27/2017 Unintentional weight loss 07/27/2017 Acute cystitis without hematuria 07/27/2017 Nausea and vomiting 07/26/2017 Overview (07/28/2017): Added automatically from request for surgery [id number] Pulmonary embolism 08/09/2016 Assessment & Plan (10/23/2017 2:05 AM CDT): On Rivaroxaban Lymphedema of left upper extremity 08/09/2016 Assessment & Plan (05/25/2024 7:53 AM BROADCAST TECHNICIAN): S/p L axillary lymph node dissection [...] syndrome Assessment & Plan (05/22/2024 11:18 AM BROADCAST TECHNICIAN): -continue home Requip 5mg nightly Pain of lower extremity 03/12/2013 Overview (07/29/2016): Leg pain Essential hypertension Assessment & Plan (05/23/2024 10:42 AM BROADCAST TECHNICIAN): -Chart history of HTN but not on meds -BP elevated on admission, likely some pain contributing -Monitor closely once pain under adequate control, discussed following up with PCP for this Chronic anticoagulation Restless leg syndrome 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 Type 2 diabetes mellitus without complication Assessment & Plan (05/24/2024 1:39 PM BROADCAST TECHNICIAN): -Last Ha1c 8.4 in 2023, repeat [...] drink = 0.6 oz pur e alcohol) [facility] [employer] Answer Date Recorded In the past 12 months has Foruforever, gas, oil, or water [employer] threatened to shut off services in your [...] any time in the past 12 m [facility], were you homeless or living in [...] on file Legal Sex Female 12:24 AM BROADCAST TECHNICIAN Gender Identity Not on file Sexual [...] CDT HEMOGLOBIN A1C STAT 05/21/2024 4:20 PM BROADCAST TECHNICIAN LIPID PANEL STAT 05/21/2024 4:20 PM BROADCAST TECHNICIAN DEXA AXIAL SKELETON BONE DENSITY 1 [...] reviewed 2021. Testing performed by: [facility], [address] [place] [address]., [id number] Blood 07/01/2024 2:02 PM CDT 07/01/2024 2:12 PM CDT us Ilana Stevens MD LAB BLOOD ORDERABLES F inal Result [facility] [address] [facility] [place] [address] * (ABNORMAL) Hemoglobin A1c (05/21/2024 4:20 PM BROADCAST TECHNICIAN) Hgb A1C 8.7(H) 4.0 - 5.6 % Estimated Average Glucose 203 mg/dL [facility] Comment: The ADA recommends reporting an estimated Average Glucose (eAG) with all Hemoglobin A1c results using the equation derived from a study of 507 normal and diabetic adults. Minority populations were underrepresented and children were not included. (Diabetes Care 2020; 43(S1): S66-S76). The eAG is not equivalent to a fasting glucose. Blood 05/21/2024 4:20 PM BROADCAST TECHNICIAN 05/21/2024 4:55 PM BROADCAST TECHNICIAN us Leo Henry MD LAB BLOOD ORDERABLES Final Result [facility] Department [place] [address] * (ABNORMAL) Lipid panel (05/21/2024 4:20 PM BROADCAST TECHNICIAN) Cholesterol 205(H) 30 - 199 mg/dL [...] Triglycerides 92 <=149 mg/dL [facility] Comment: Interpretive Data Ages < [...] HDL 55 >=40 mg/dL [facility] Comment: Interpretive Data Ages < [...] calculated 134(H) <=129 mg/dL [facility] Comment: Interpretive Data Ages < [...] [facility] Blood 05/21/2024 4:20 PM BROADCAST TECHNICIAN 05/21/2024 4:50 PM BROADCAST TECHNICIAN Narrative [facility] - 05/22/2024 4:17 PM BROADCAST TECHNICIAN Reflex us Leo Henry MD LAB BLOOD ORDERABLES Final Result [facility] Department [place] [address] * Dexa Axial Skeleton Bone Density 1 or 2 Site (08/02/2022 10:53 AM CDT) Anatomical Region Laterality Modality Body N/A Radiographic Lizeth ging Narrative 08/02/2022 3:34 PM CDT Patient Name: Karly Marques Date of : 1955 Date of scan: 08/02/2022 Bone mineral density was performed on a HoloDailyDigital Discovery Densitometer. Based on machine cross-calibration and [...] by the International Society of Clinical Densitometry. [id number] us Khris Arthur MD IMG DXA PROCEDURES [...] agrees with it. ACC# Date Time Exam [id number] Aug 19, 2016 14:27:00 [facility] [id number] Dia Mamm, inc CAD, unilat L Technologist(s): Carla Harris; ; [id number] Aug 19, 2016 15:39:00 [facility] [id number] Breast US unilateral, ltd L ACC# Date Time Exam [id number] Aug 19, 2016 14:27:00 [facility] [id number] Dia Mamm, inc CAD, unilat L Technologist(s): Carla Harris; ; [id number] Aug 19, 2016 15:39:00 [facility] [id number] Breast US unilateral, ltd L EXAMINATION: LEFT [...] SARABIA M.D. on Aug 19 2016 4:20P [id number] Procedure Note Miscellaneous, Not In File / Provider, MD Tyler - 09/17/2016 ANTHONY SARABIA M.D. JUDY RINCON M.D. FINAL REPORT The radiology attending physician has personally reviewed this study, and has reviewed and/or edited this written report and agrees with it. ACC# Date Time Exam [id number] Aug 19, 2016 14:27:00 [facility] [id number] Diag Mamm, inc CAD, unilat L Technologist(s): Carla Harris; ; [id number] Aug 19, 2016 15:39:00 [facility] [id number] Breast US unilateral, ltd L ACC# Date Time Exam [id number] Aug 19, 2016 14:27:00 [facility] [id number] Diag Mamm, inc CAD, unilat L Technologist(s): Carla Harris; ; [id number] Aug 19, 2016 15:39:00 [facility] [id number] Breast US unilateral, ltd L EXAMINATION: LEFT [...] SARABIA M.D. on Aug 19 2016 4:20P [id number] us Not In File Miscellaneous IMG MAMMO PROCEDURES F inal Result from Last 3 Months or Most Recently Relevant to Health Maintenance Insurance [facility]PA [facility] MEDICARE ADVANTAGE [facility] MEDICARE ADVANTAGE [facility] MEDICARE ADVANTAGE Advance Directives For more information, please contact: [phone] Documents on File Type Date Recorded Patient Well Blower Expl anation ADVANCE DIRECTIVE 12/23/2021 2:49 PM Power of Director Of Academic Support-Medical ADVANCE DIRECTIVE 12/23/2021 2:49 PM Living Will [...] Name Relationship Healthcare Agent [facility] Communication Yunior Marques Daughter Health Care Agent Jimmie Marques Spouse First Alternate Health Care Agent Care Teams Plastics Technician Relationship Specialty Start Date End Date Justen Gale MD 2 [facility] [address] [place] [address] PCP - General 10/09/17 Liu Jerez MD Consulting Physician Gastroenterology 07/28/17 [place] [address] [facility] [address] [place] [address] Consulting Physician Pulmonary Disease 08/03/17 [place] [address] [place] [address] [place] [address] Medical Oncologist/Ground Worker Medical Oncology 10/23/17 [place] [address] [facility] [address] [place] [address] Surgeon Orthopedic Surgery 10/23/17 [place] [address] [address] Consulting Physician Pain Management 10/23/17 [place] [address] [address] Referring Physician General Surgery 01/26/18 [place] [address] [facility] [address] [place] [address] Consulting Physician Neurology 01/26/18
--- OUTSIDE RECORDS SUMMARY | 2024-11-12 13:38 | XMS_ITS | Encounter Summary ---
Author Organization [facility] Address [address] [place] [address] Phone Care Team Providers Care Digital Artist Name Role Phone Justen Gale MD Primary Care Provider [phone] David Roberts APRN, TENT FINISHER Unavailable [phone] Annel Rod MD Unavailable Reason for Visit * Reason Comments Medication Refill Encounter Details Date Type Department Care Team (Late st Contact Info) Description 02/07/2020 Refill [facility] [address] [place] [address] Justen Gale MD #[address] [address] Medication Refill Social History Tobacco Use Types [...] [facility] 1 [place] [address] Angelito Alegria APRN, TENT FINISHER #[address] [address] Discharge Disposition: Discharged to home or Selfcare 11/19/2024 2:00 PM CDT Office Visit [facility] #2 [place] [address] Annel Rod MD #[address] [address] documented as of this encounter Visit Diagnoses Not on filedocumented in this encounter Additional Health Concerns Infection Onset Date Last Indicated Resolved Time COVID - 19 08/01/2024 08/01/2024 08/01/2024 3:20 PM CDT Assessment Noted Time PHQ-9 Depression Total Score: 0 09/08/19 1:00 PM CDT documented as of this encounter Care Teams Digital Artist Relationship Specialty Start Date End Date Justen Gale MD #[address] [address] PCP - General Family Medicine 10/17/17 David Roberts APRN, NETTA #2 [facility] [place] [address] Nurse Practitioner Advanced Practice Nurse 01/31/22 Annel Rod MD #[address] [address] Consulting Physician Endocrinology 07/01/22 documented as of this encounter
--- OUTSIDE RECORDS SUMMARY | 2024-11-12 13:38 | XMS_ITS | Encounter Summary ---
Author Organization [facility] Address [address] [place] [address] Phone Care Team Providers Care Box Car Checker Name Role Phone Justen Gale MD Primary Care Provider [phone] David Roberts APRN, CORRECTION WORKER Unavailable Annel Rod MD Unavailable Reason for Visit * Reason Comments Medication Refill Encounter Details Date Type Department Care Team (Late st Contact Info) Description 04/13/2023 Refill [facility] - Endocr[facility]ology - [place] #2 [place] [address] Annel Rod MD #[address] [address] Medication Refill Social History Tobacco [...] Jennifer Wang RN - 04/14/2023 10:00 AM MACHINE STRIPPER Requested Prescriptions Pending Prescriptions Disp Refills ??? Continuous Blood Gluc Sensor (FreeStyle Eileen 2 Sensor) Misc [Pharmacy Med Name: FREESTYLE EILEEN 2 SENSOR] 6 Each 1 Sig: APPLY 1 SENSOR AND WEAR FOR 14 DAYS TO CHECK BLOOD SUGAR Next appt: 05/30/2023 INE STRIPPER documented in this encounter Plan of Treatment Upcoming Encounters Date Type Department Care Team (Late st Contact Info) Description 11/13/2024 2:00 PM CDT Appointment [facility] Cardiology Services 1 [place] [address] Angelito Alegria APRN, CORRECTION WORKER #2 [facility] [address] [place] [address] Discharge Disposition: Discharged to home or Selfcare 11/19/2024 2:00 PM CDT Office Visit [facility] - Endocrinology [facility] #2 [place] [address] Annel Rod MD #2 [facility] [address] [place] [address] documented as of this encounter Visit Diagnoses Not on filedocumented in this encounter Additional Health Concerns Infection Onset Date Last Indicated Resolved Time COVID - 19 08/01/2024 08/01/2024 08/01/2024 3:20 PM CDT Assessment Noted Time PHQ-9 Depression Total Score: 8 01/18/20 23 2:24 PM CDT documented as of this encounter Care Teams Box Car Checker Relationship Specialty Start Date End Date Justen Gale MD #2 [facility] [address] [place] [address] PCP - General Family Medicine 10/17/17 David Roberts APRN, CORRECTION WORKER #2 [place] [address] Nurse Practitioner Advanced Practice Nurse 01/31/22 Annel Rod MD #[address] [address] Consulting Physician Endocrinology 07/01/22 documented as of this encounter
--- OUTSIDE RECORDS SUMMARY | 2024-11-12 13:38 | XMS_ITS | Encounter Summary ---
Author Organization [facility] Address [address] [place] [address] Phone Care Team Providers Care Inside Sales Lead Name Role Phone Justen Gale MD Primary Care Provider [phone] David Roberts APRN, LINECASTING MACHINE KEYBOARD OPERATOR Unavailable Annel Rod MD Unavailable Reason for Visit * Reason Comments Medication Refill Encounter Details Date Type Department Care Team (Late st Contact Info) Description 08/30/2022 Refill [facility] - Family Medicine [facility] #2 [place] [address] Justen Gale MD #[address] [address] Medication Refill Social History Tobacco Use Types [...] [place] 05/02/22 Office Visit Justen Gale MD [facility] [place] 03/03/22 Office Visit Pili Elkins APRN, NETTA [facility] [place] 01/03/22 Office Visit Dannielle Berg PAC [facility] [place] 12/07/21 Office Visit Pili Elkins APRN, NETTA [facility] [place] 11/09/21 Office Visit Pili Elkins APRN, NETTA [facility] [place] 10/08/21 Office Visit Angelito Alegria APRN, NETTA [facility] [place] 08/30/21 [facility] Show[facility] recent visits within past 365 days and meeting all other requirements Future Appointments No visits were found meeting these conditions. Showing future appointments within next 90 days and meeting all other requirements documented in this encounter Plan of Treatment Upcoming Encounters Date Type Department Care Team (Late st Contact Info) Description 11/13/2024 2:00 PM CDT Appointment [facility] Cardiology Services 1 [place] [address] Angelito Alegria APRN, LINECASTING MACHINE KEYBOARD OPERATOR #[address] [address] Discharge Disposition: Discharged to home or Selfcare 11/19/2024 2:00 PM CDT Office Visit [facility] - [place] #2 [place] [address] Annel Rod MD #[address] [address] documented as of this encounter Visit Diagnoses Not on filedocumented in this encounter Additional Health Concerns Infection Onset Date Last Indicated Resolved Time COVID - 19 08/01/2024 08/01/2024 08/01/2024 3:20 PM CDT Assessment Noted Time PHQ-9 Depression Total Score: 0 07/21/19 3:00 PM CDT documented as of this encounter Care Teams Inside Sales Lead Relationship Specialty Start Date End Date Justen Gale MD #[address] [address] PCP - General Family Medicine 10/17/17 David Roberts APRN, LINECASTING MACHINE KEYBOARD OPERATOR #2 [place] [address] Nurse Practitioner Advanced Practice Nurse 01/31/22 Annel Rod MD #[address] [address] Consulting Physician Endocrinology 07/01/22 documented as of this encounter
--- OUTSIDE RECORDS SUMMARY | 2024-11-12 13:38 | XMS_ITS | Encounter Summary ---
Author Organization [facility] Address [address] [place] [address] Phone Care Team Providers Care Stucco Mason Name Role Phone Justen Gale MD Primary Care Provider David Roberts APRN, FAN RUNNER Unavailable Annel Rod MD Unavailable Reason for Visit * Reason Comments Medication Refill Encounter Details Date Type Department Care Team (Late st Contact Info) Description 02/07/2023 Refill [facility] - Family Medicine [facility] #2 [place] [address] Pili Elkins APRN, FAN RUNNER #[address] [address] Medication Refill Social History Tobacco [...] PM CDT Appointment [facility] Cardiology Services 1 [place] [address] Angelito Alegria, ZAMZAM, FAN RUNNER #2 [facility] [address] [place] [address] Discharge Disposition: Discharged to home or Selfcare 11/19/2024 2:00 PM CDT Office Visit [facility] - Endocrinology - [place] #2 [place] [address] Annel Rod MD #2 [facility] [address] [place] [address] documented as of this encounter Visit Diagnoses Diagnosis Essential hypertension Unspecified essential hypertension documented in this encounter Additional Health Concerns Infection Onset Date Last Indicated Resolved Time COVID - 19 08/01/2024 08/01/2024 08/01/2024 3:20 PM CDT Assessment Noted Time PHQ-9 Depression Total Score: 8 01/18/20 2:24 PM CDT documented as of this encounter Care Teams Stucco Mason Relationship Specialty Start Date End Date Justen Gale MD #2 [facility] [address] [place] [address] PCP - General Family Medicine 10/17/17 David Roberts APRN, FAN RUNNER #2 [place] [address] Nurse Practitioner Advanced Practice Nurse 01/31/22 Annel Rod MD #2 [facility] [address] [place] [address] Consulting Physician Endocrinology 07/01/22 documented as of this encounter
--- OUTSIDE RECORDS SUMMARY | 2024-11-12 13:38 | XMS_ITS | Encounter Summary ---
Author Organization [facility] Address [address] [place] [address] Phone Care Team Providers Care Yarder Engineer Name Role Phone Justen aGle MD Primary Care Provider [phone] David Robetrs APRN, BULL GANG SUPERVISOR Unavailable [phone] Annel Rod MD Unavailable Reason for Visit * Reason Comments Medication Refill Encounter Details Date Type Department Care Team (Late st Contact Info) Description 03/05/2023 Refill [facility] - Family Medicine [facility] #2 [place] [address] Pili Elkins APRN, BULL GANG SUPERVISOR #[address] [address] Medication Refill Social History [...] discontinued on 10/19/2022 by Justen Gale MD OR SYSTEMS ANALYST documented in this encounter Plan of Treatment Upcoming Encounters Date Type Department Care Team (Late st Contact Info) Description 11/13/2024 2:00 PM CDT Appointment [facility] Cardiology Services 1 [place] [address] Angelito Alegria APRN, BULL GANG SUPERVISOR #2 [facility] [address] [place] [address] Discharge Disposition: Discharged to home or Selfcare 11/19/2024 2:00 PM CDT Office Visit [facility] - Endocrinology - [place] #2 [place] [address] Annel Rod MD #2 [facility] [address] [place] [address] documented as of this encounter Visit Diagnoses Diagnosis Essential hypertension Unspecified essential hypertension documented in this encounter Additional Health Concerns Infection Onset Date Last Indicated Resolved Time COVID - 19 08/01/2024 08/01/2024 08/01/2024 3:20 PM CDT Assessment Noted Time PHQ-9 Depression Total Score: 8 01/18/20 2:24 PM CDT documented as of this encounter Care Teams Yarder Engineer Relationship Specialty Start Date End Date Justen Gale MD #2 [facility] [address] [place] [address] PCP - General Family Medicine 10/17/17 David Roberts APRN, NETTA #2 [place] [address] Nurse Practitioner Advanced Practice Nurse 01/31/22 Annel Rod MD #2 [facility] [address] [place] [address] Consulting Physician Endocrinology 07/01/22 documented as of this encounter
--- OUTSIDE RECORDS SUMMARY | 2024-11-12 13:38 | XMS_ITS | Clinical Summary ---
Author Organization [facility] Address [facility] [place] [address] Care Team Providers Care Service Delivery Supervisor Name Role Phone Meena Bansal MD Unavailable [phone] Justen Gale MD Primary Care Provider [phone] Allergies Active Allergy Reactions Criticality Noted Date [...] reflux disease 09/05/2020 Malignant tumor of breast ([facility]/HCC [facility]) 08/22 Knee pain 09/05/2020 Other [...] 03/18/2018 Assessment & Plan (03/18/2018 2:55 AM CHEMICAL ENGRAVER): Acute, patient reported as epigastric pain however may be atypical presentation. Troponins negative x2. Also in differential is GERD, PUD - Admit to observation -Follow-up troponins -Monitor vitals -N.p.o. at midnight - Stress echo in a.m. - Consider cardiology consult based on results of stress test -Begin Protonix Epigastric pain 03/18/2018 Assessment & Plan (03/18/2018 5:39 AM CHEMICAL ENGRAVER): Acute, non radiating, worsens with lying [...] Speech impairment 01/30/2018 CVA (cerebral vascular accident) ([facility] HHS/ C) 01/24/2018 Neck pain on right side 12/01/2017 Anxiety and depression 11/12/2017 Chronic anticoagulation 11/09/2017 Constipation 11/09/2017 Uncontrolled type 2 diabetes mellitus with hyperglycemia, with long-term current use of insulin ([facility]) 11/06/2017 salvage determiner (current) use 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 inhibitors 10/23/2017 Lumbosacral [...] upper- 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 ([facility] HHS/HCC) 10/17/2017 Assessment & Plan (08/31/2018 12:24 AM CDT): S/p masectomy. -continue exemestane Acute deep vein thrombosis ( DVT) of proximal vein of right lower extremity ([facility]) 10/17/2017 Dysuria 10/17/2017 Hyperthyroidism 10/17/2017 Cancer of overlapping sites of left female breast ([facility]) 10/13/2017 Syncope 09/29/2017 High blood pressure 08/22/2017 Overview (09/05/2020): Last Assessment & Plan: On lisinopril Last Assessment & Plan: On lisinopril Assessment & Plan (08/30/2018 9:57 PM CDT): Chronic. Controlled. -continue home medications Assessment & Plan (03/18/2018 2:51 AM CHEMICAL ENGRAVER): Chronic, BPs currently 127/78 - To new home meds Morbid obesity with BMI of 50.0-59.9, adult 04/2017 Sepsis ([facility]) 08/22/2017 Type 2 diabetes mellitus ([facility]) 08/22 Overview (09/05/2020): Last Assessment & Plan: Hold janument. Start on SSI and accucheks Assessment & Plan (08/30/2018 10:01 PM CDT): Chronic. Controlled. -continue home insulin regimen of lantus 50 units q am -lispro 20 units with breakfast and lunch. 22 units with dinner. Assessment & Plan (03/18/2018 2:53 AM CHEMICAL ENGRAVER): Chronic, patient reports medical compliance with 50 units of Lantus daily and 15 units of Humalog before meals. No recent HbA1c - Monitor POC glucose -[place] home regimen - Consider sliding scale insulin -Follow-up HbA1c Bronchitis 08/20/2017 LUL (obstructive sleep apnea) 08/01/2017 Assessment & Plan (03/18/2018 2:54 AM CHEMICAL ENGRAVER): Chronic, on CPAP at home - Continue home CPAP History of DVT (deep vein thrombosis) 08/01/2017 Assessment & Plan (03/18/2018 2:54 AM CHEMICAL ENGRAVER): Chronic - Continue home Xarelto Chest pressure 08/01/2017 Diet-controlled diabetes mellitus ([facility] HHS/H CC) 08/01/2017 History of pulmonary embolism 08/01/2017 Hyponatremia 08/01/2017 Positive blood culture 08/01/2017 Acute pharyngitis 07/27/2017 Generalized weakness 07/27/2017 Nausea and vomiting 07/26/2017 Overview (09/05/2020): Overview: Overview: Added automatically from request for surgery [id number] Overview: Added automatically from request for surgery [id number] Added automatically from request for surgery [id number] Neuropathy 07/05/2017 History of breast cancer 02/06/2017 Pulmonary embolism ([facility]) 08/09/2016 Overview (09/05/2020): Last Assessment [...] syndrome Assessment & Plan (03/18/2018 2:54 AM CHEMICAL ENGRAVER): Chronic -Continue home ropinirole Pain of [...] = 0.6 oz pur e alcohol) [facility] Utilities Answer Date Recorded In the past 12 months has [employer] gas, oil, or water [employer] threatened to shut off services in your [...] any time in the past 12 [facility], were you homeless or living in a fpc (including now)? No 10/13/2023 Comments No Sex and Gender Information Value Date Recorded Sex Assigned at Female 09/06/2020 12:50 AM CDT Legal Sex Female 10:47 AM CDT Gender Identity Female 09/06/2020 12:50 AM CDT Sexual Orientation Straight 03/18/2018 3: 01 AM CHEMICAL ENGRAVER Last Filed Vital Signs Vital Sign [...] COVID-19 Vaccine (2 - season) 2023 06/29/2020 ASCVD LDL 10/13/2024 10/14/2023, [...] 8.0(H) <5.7 % 10/14/2023 5:50 AM CDT [facility] Comment: ADA GUIDELINES 2010 5.7 TO 6.4% INCREASED RISK OF DIABETES > OR = 6.5% CONSISTENT WITH DIABETES ESTIMATED AVG GLUCOSE 183 mg/dL 10/14/2023 5:50 AM CDT [facility] 10/14/2023 3:40 AM CDT us Peggy Bland MD LABORATORY Final Result [facility] [address] [place] [address], [place] [phone] * LIPID PANEL (10/14/2023 3:40 AM CDT) CHOLESTEROL 164 <200 MG/DL 10/14/2023 4:31 AM CDT [facility] TRIGLYCERIDES 114 <150 MG/DL 10/14/2023 4:31 AM CDT [facility] HDL 46 >40.0 MG/DL 10/14/2023 4:31 AM CDT [facility] LDL (CALCULATED) 95 <100 MG/DL 10/14/19 4:31 AM CDT [facility] NON HDL CHOLESTEROL 118 <130 MG/DL 10/13 4:31 AM T [facility] CHOL/HDL RATIO 3.6 0.0 - 4.5 10/14/2023 4:31 AM T [facility] VLDL CALCULATION 23 5 - 55 MG/DL 10/14/2023 4:31 AM CDT [facility] LIPID INTERPRETATION 10/14/2023 4:31 AM T [facility] Comment: NIH CONCENSUS REPORT RECOMMENDATIONS: [...] Final Result [facility] [address] [place] [address], from Last 3 Months or Most Recently Relevant to Health Maintenance Insurance [facility] [place] [address] [id number] [facility] [place] [address] Advance Directives * Full Code (Latest Code [...] 2:42 AM 03/18/2018 4:50 PM Care Teams Service Delivery Supervisor Relationship Specialty Start Date End Date Justen Gale MD [address] [address] PCP - General FAMILY PRACTICE 08/20/17 Meena Bansal MD [address] [facility] [address] [place] [address] Supervisor CARDIOVASCULAR DISEASE 04/24/16
--- OUTSIDE RECORDS SUMMARY | 2024-11-12 13:38 | XMS_ITS | Encounter Summary ---
Author Organization [facility] Address [address] [place] [address] Phone Care Team Providers Care Sonogram Technician Name Role Phone Justen Gale MD Primary Care Provider David Roberts APRN, ELECTRICAL INSTALLER Unavailable Annel Rod MD Unavailable Reason for Visit * Reason Comments Medication Refill Encounter Details Date Type Department Care Team (Late st Contact Info) Description 07/06/2023 Refill [facility] Family [facility] #2 [place] [phone] Justen Gale MD [address] [address] Medication Refill Social History Tobacco Use Types [...] Dept 06/27/23 Office Visit Justen Gale MD [facility] [place] 01/17/23 Office Visit Catrina Quiñonez MD [facility] [place] Showing recent visits [...] [facility] [address] [place] [address] Angelito Alegria, TUBE AND MANIFOLD BUILDER, ELECTRICAL INSTALLER [address] [address] Discharge Disposition: Discharged to home or Selfcare 11/19/2024 2:00 PM CDT Office Visit [facility] - Endocrinology - [place] #[address] [place] [address] Annel Rod MD #2 [facility] [address] [place] [address] documented as of this encounter Visit Diagnoses Not on filedocumented in this encounter Additional Health Concerns Infection Onset Date Last Indicated Resolved Time COVID - 19 08/01/2024 08/01/2024 08/01/2024 3:20 PM CDT Assessment Noted Time PHQ-9 Depression Total Score: 8 01/18/20 23 2:24 PM CDT documented as of this encounter Care Teams Sonogram Technician Relationship Specialty Start Date End Date Justen Gale MD #2 [facility] [address] [place] [address] PCP - General Family Medicine 10/17/17 David Roberts APRN, ELECTRICAL INSTALLER [address] [place] [address] Nurse Practitioner Advanced Practice Nurse 01/31/22 Annel Rod MD [address] [address] Consulting Physician Endocrinology 07/01/22 documented as of this encounter
--- OUTSIDE RECORDS SUMMARY | 2024-11-12 13:38 | XMS_ITS | Encounter Summary ---
Author Organization [facility] Address [address] [place] [address] Phone Care Team Providers Care Assembler Metal Building Name Role Phone Justen Gale MD Primary Care Provider [phone] David Roberts APRN, HUNTER Unavailable Annel Rod MD Unavailable Reason for Visit * Reason Comments Medication Refill Encounter Details Date Type Department Care Team (Late st Contact Info) Description 10/24/2022 Refill [facility] Family Medicine [facility] #2 [place] [address] Pili Elkins APRN, HUNTER [address] [address] Medication Refill Social History [...] 2:00 PM CDT Appointment [facility] Cardiology Services [address] [place] [address] Angelito Alegria, DEPARTMENT HELPER, HUNTER [address] [address] Discharge Disposition: Discharged to home or Selfcare 11/19/2024 2:00 PM CDT Office Visit [facility] Endocrinology [facility] #2 [place] [address] Annel Rod MD #[address] [address] documented as of this encounter Visit Diagnoses Diagnosis Essential hypertension Unspecified essential hypertension documented in this encounter Additional Health Concerns Infection Onset Date Last Indicated Resolved Time COVID - 19 08/01/2024 08/01/2024 08/01/2024 3:20 PM CDT Assessment Noted Time PHQ-9 Depression Total Score: 0 09/17/19 23 11:00 AM CDT documented as of this encounter Care Teams Assembler Metal Building Relationship Specialty Start Date End Date Justen Gale MD #[address] [address] PCP - General Family Medicine 10/17/17 David Roberts DEPARTMENT HELPER, HUNTER [address]2 [place] [address] Nurse Practitioner Advanced Practice Nurse 01/31/22 Annel Rod MD #[address] [address] Consulting Physician Endocrinology 07/01/22 documented as of this encounter
--- OUTSIDE RECORDS SUMMARY | 2024-11-12 13:38 | XMS_ITS | Encounter Summary ---
Author Organization [facility] Address [address] [place] [address] Phone Care Team Providers Care Chemistry Professor Name Role Phone Justen Gale MD Primary Care Provider David Roberts APRN, ADMISSIONS SPECIALIST Unavailable [phone] Annel Rod MD Unavailable Reason for Visit * Reason Comments Medication Refill Encounter Details Date Type Department Care Team (Late st Contact Info) Description 03/02/2023 Refill [facility] Family [facility] #2 [place] [id number] Justen Gale MD #[address] [address] Medication Refill Social History Tobacco Use Types [...] Tamika Villarreal RN - 03/02/2023 8:[address] BAILIFF OR SHERIFF Medication failed the protocol, provider to review [...] Dept 01/17/23 Office Visit Catrina Quiñonez MD [facility] 09/16/22 Office Visit [facility] Elkins APRN, CNP [facility] 07/05/22 Office Visit Pili Elkins APRN, CNP [facility] 05/02/22 Office Visit Justen Gale MD [facility] 03/03/22 Office Visit Pili Elkins APRN, NETTA [facility] Showing recent visits within past 365 days and meeting all other requirements Future Appointments No visits were found meeting these conditions. Showing future appointments within next 90 days and meeting all other requirements T BAILIFF OR SHERIFF documented in this encounter Plan of Treatment Upcoming Encounters Date Type Department Care Team (Late st Contact Info) Description 11/13/2024 2:00 PM CDT [facility] [address] [place] [address] Angelito Alegria APRN, ADMISSIONS SPECIALIST #[address] [address] Discharge Disposition: Discharged to home or Selfcare 11/19/2024 2:00 PM CDT Office Visit [facility] - Endocr[facility]ology - [place] #[address] [place] [address] Annel Rod MD #[address] [address] documented as of this encounter Visit Diagnoses Not on filedocumented in this encounter Additional Health Concerns Infection Onset Date Last Indicated Resolved Time COVID - 19 08/01/2024 08/01/2024 08/01/2024 3:20 PM CDT Assessment Noted Time PHQ-9 Depression Total Score: 8 01/18/20 2:24 PM CDT documented as of this encounter Care Teams Chemistry Professor Relationship Specialty Start Date End Date Justen Gale MD #[address] [address] PCP - General Family Medicine 10/17/17 David Roberts, COMPUTER DRAFTER, ADMISSIONS SPECIALIST #2 [place] [address] Nurse Practitioner Advanced Practice Nurse 01/31/22 Annel Rod MD #[address] [address] Consulting Physician Endocrinology 07/01/22 documented as of this encounter
--- OUTSIDE RECORDS SUMMARY | 2024-11-12 13:38 | XMS_ITS | Patient Health Record ---
Author Organization [facility] Address [address] [facility] [address] [facility] [address] [place] [address] Care Team Providers Care Yacht Master Name Role Phone Yo DURÁN, Lavonne Primary Care Provider Unavail able Reason For Referral No Information Plan Of Treatment No Information Insurance Providers Payer Name Payer Address Payer Phone Subscriber Number Group Number Insured Name Patient Relationship to Insured Coverage Start Date Coverage End Date [facility] [employer] [address] [address] [place], [place] [id number] Karly Marques Self - patient is the insured
--- OUTSIDE RECORDS SUMMARY | 2024-11-12 13:38 | XMS_ITS ---
Author Organization [facility] Address [address] [facility] [place] [address] Care Team Providers Care Registered Safety Engineer Name Role Phone Justen Gale MD Primary Care Provider [phone] Active Problems Problem Noted Date Diagnosed Date [...]
--- OUTSIDE RECORDS SUMMARY | 2024-11-12 13:38 | XMS_ITS | Encounter Summary ---
Author Organization [facility] Address [address] [place] [address] Phone Care Team Providers Care Associate Relations Specialist Name Role Phone Justen Gale MD Primary Care Provider David Roberts APRN, HAIRSPRING INSPECTOR Unavailable [phone] Annel Rod MD Unavailable Reason for Visit * Reason Comments Medication Refill Encounter Details Date Type Department Care Team (Late st Contact Info) Description 02/07/2023 Refill [facility] Family Medicine [facility] #2 [place] [address] Catrina Quiñonez MD #2 [place] [address] Medication Refill Social History Tobacco Use Types [...] Date Type Provider Dept 01/17/23 Office Visit Catrian Quiñonez MD [facility] 09/16/22 Office Visit Pili Elkins APRN, CNP [facility] 07/05/22 Office Visit Pili Elkins APRN, CNP [facility] 05/02/22 Office Visit Justen Gale MD [facility] [place] 03/03/22 Office Visit Pili Elkins APRN, NETTA [facility] [place] Showing recent visits within past 365 days and meeting all other requirements Future Appointments No visits were found meeting these conditions. Showing future appointments within next 90 days and meeting all other requirements documented in this encounter Plan of Treatment Upcoming Encounters Date Type Department Care Team (Late st Contact Info) Description 11/13/2024 2:00 PM CDT Appointment [facility] Cardiology Services 1 [place] [address] Angelito Alegria APRN, HAIRSPRING INSPECTOR #[address] [address] Discharge Disposition: Discharged to home or Selfcare 11/19/2024 2:00 PM CDT Office Visit [facility] Endocr[facility] #2 [place] [address] Annel Rod MD #[address] [address] documented as of this encounter Visit Diagnoses Not on filedocumented in this encounter Additional Health Concerns Infection Onset Date Last Indicated Resolved Time COVID - 19 08/01/2024 08/01/2024 08/01/2024 3:20 PM CDT Assessment Noted Time PHQ-9 Depression Total Score: 8 01/18/20 2:24 PM CDT documented as of this encounter Care Teams Associate Relations Specialist Relationship Specialty Start Date End Date Justen Gale MD #[address] [address] PCP - General Family Medicine 10/17/17 David Roberts APRN, HAIRSPRING INSPECTOR #2 [place] [address] Nurse Practitioner Advanced Practice Nurse 01/31/22 Annel Rod MD #[address] [address] Consulting Physician Endocrinology 07/01/22 documented as of this encounter
--- OUTSIDE RECORDS SUMMARY | 2024-11-12 13:38 | XMS_ITS | Encounter Summary ---
Author Organization [facility] Address [address] [place] [address] Phone Care Team Providers Care Bird Trapper Name Role Phone Justen Gale MD Primary Care Provider [phone] David Roberts APRN, TRIMMER LOADER Unavailable [phone] Annel Rod MD Unavailable Reason for Visit * Reason Onset Date Comments Breathing Problem 08/07/2024 Muscle Pain 08/07/2024 Encounter Details Date Type Department Care Team (Late st Contact Info) Description 08/07/2024 Nurse Triage [facility] [address] [place] [address] Justen Gale MD #[address] [address] Breathing Problem; Muscle Pain Social History Tobacco Use Types Packs/Day Years Used Date Smoking Tobacco: Never Smokeless Tobacco: Never Alcohol Use Standard Drinks/Week Comments No 0 (1 standard drink = 0.6 oz pur e alcohol) [facility] Utilities Answer Date Recorded In the [...] reports this was discussed with the front desk monitor and provider was to be notified in [...] Encouraged caller to bring cell phone and pick pulling machine operator to contact EMS 911 if symptoms [...] (e.g., disoriented, slurred speech) Protocols used: Breathing [id number] * Telephone Encounter - Neha Tomlinson - 08/07/2024 1:30 PM CDT Symptoms: Altered Mental Status, Body Aches, Breathing Trouble Outcome: Warm transfer to an emergent RN NOW! Reason: Trouble walking The caller accepted this outcome. documented in this encounter Plan of Treatment Upcoming Encounters Date Type Department Care Team (Late st Contact Info) Description 11/13/2024 2:00 PM CDT Appointment [facility] Cardiology Services 1 [place] [address] Angelito Alegria APRN, NETTA #2 [facility] [address] [place] [address] Discharge Disposition: Discharged to home or Selfcare 11/19/2024 2:00 PM CDT Office Visit [facility] Endocr[facility] #2 [place] [address] Annel Rod MD #2 [facility] [address] [place] [address] documented as of this encounter Visit Diagnoses Not on filedocumented in this encounter Additional Health Concerns Assessment Noted Time PHQ-9 Depression Total Score: 0 08/02/19 25 1:09 PM CDT documented as of this encounter Care Teams Bird Trapper Relationship Specialty Start Date End Date Justen Gale MD #2 [facility] [address] [place] [address] PCP - General Family Medicine 10/17/17 David Roberts APRN, NETTA #2 [place] [address] Nurse Practitioner Advanced Practice Nurse 01/31/22 Annel Rod MD #2 [facility] [address] [place] [address] Consulting Physician Endocrinology 07/01/22 documented as of this encounter
--- OUTSIDE RECORDS SUMMARY | 2024-11-12 13:38 | XMS_ITS | Encounter Summary ---
Author Organization [facility] Address [address] [place] [address] Phone Care Team Providers Care Heliotherapist Name Role Phone Liu Jerez MD Unavailable Albert Corbin MD Unavailable [phone] Justen Gale MD Primary Care Provider Khris Arthur MD Unavailable [phone] Ko Melendez MD Unavailable [phone] John Paul Moyer MD Unavailable Annel Rod MD Unavailable Anali MARSHALL MD, Carlos M. Unavailable [phone] Encounter Details Date Type Department Care Team [...] on file Legal Sex Female 12:24 AM MAKING MACHINE OPERATOR Gender Identity Not on [...] COVID: Recovered 02/10/2022 02/10/2022 06/10/2022 3:05 AM MAKING MACHINE OPERATOR Exposure, COVID-19 Comment:Added automatically based on COVID19 lab answers indicating exposure risk 02/11/2022 02/11/2022 02/15/2022 9:06 AM C DT COVID: Suspected 05/14/2022 05/14/2022 05/14/2022 10:41 AM MAKING MACHINE OPERATOR COVID: Suspected 06/07/2022 06/07/2022 06/07/2022 12:28 PM MAKING MACHINE OPERATOR COVID: Suspected 06/21/2022 06/21/2022 06/21/2022 2:12 AM MAKING MACHINE OPERATOR COVID: Suspected 10/05/2022 10/05/2022 10/05/2022 7:40 PM CDT COVID: Suspected 01/04/2024 01/04/2024 01/04/2024 10:30 PM CDT COVID: Suspected 02/14/2024 02/14/2024 02/15/2024 12:36 AM CDT COVID: Suspected 07/01/2024 07/01/2024 07/01/2024 2:53 PM CDT COVID: Suspected 07/01/2024 07/01/2024 07/02/2024 3:05 AM CDT documented as of this encounter Care Teams Heliotherapist Relationship Specialty Start Date End Date Justen Gale MD [address] [facility] [address] [place] [address] PCP - General 10/09/17 Liu Jerez MD Consulting Physician Gastroenterology 07/28/17 [place] [address] [facility] [address] [place] [address] Consulting Physician Pulmonary Disease 08/03/17 [place] [address] [place] [address] [address] [place] [address] Medical Oncologist/Professor Of Law Medical Oncology 10/23/17 [place] [address] [address] Surgeon Orthopedic Surgery 10/23/17 [place] [address] [facility] [address] [place] [address] Consulting Physician Pain Management 10/23/17 [place] [address] [address] Referring Physician General Surgery 01/26/18 [place] [address] [facility] [address] [place] [address] Consulting Physician Neurology 01/26/18 documented as of this encounter
--- OUTSIDE RECORDS SUMMARY | 2024-11-12 13:38 | XMS_ITS | Encounter Summary ---
Author Organization [facility] Address [address] [place] [address] Phone Care Team Providers Care Customer Sales Distributor Name Role Phone Justen Gale MD Primary Care Provider David Roberts APRN, MANAGER STORAGE Unavailable [phone] Annel Rod MD Unavailable Reason for Visit * Reason Comments Medication Refill Encounter Details Date Type Department Care Team (Late st Contact Info) Description 07/12/2022 Refill [facility] #2 [place] [address] Justen Gale MD #[address] [address] Medication Refill Social History Tobacco Use Types [...] 07/05/22 Office Visit Pili Elkins APRN, NETTA [facility] [place] 05/02/22 Office Visit Justen Gale MD [facility] [place] 03/03/22 Office Visit Pili Elkins APRN, MANAGER STORAGE [facility] [place] 01/03/22 Office Visit Dannielle Berg PAC [facility] [place] 12/07/21 Office Visit Pili Elkins APRN, NETTA [facility] [place] 11/09/21 Office Visit Pili Elkins APRN, NETTA [facility] [place] 10/08/21 Office Visit Angelito Alegria APRN, NETTA [facility] [place] 08/30/21 Office Visit Justen Gale MD [facility] Showing recent visits within past 365 days and meeting all other requirements Future Appointments No visits were found meeting these conditions. Showing future appointments within next 90 days and meeting all other requirements documented in this encounter Plan of Treatment Upcoming Encounters Date Type Department Care Team (Late st Contact Info) Description 11/13/2024 2:00 PM CDT Appointment [facility] Cardiology Services 1 [place] [address] Angelito Alegria APRN, MANAGER STORAGE #[address] [address] Discharge Disposition: Discharged to home or Selfcare 11/19/2024 2:00 PM CDT Office Visit [facility] Endocrinology [facility] #2 [place] [address] Annel Rod MD #[address] [address] documented as of this encounter Visit Diagnoses Not on filedocumented in this encounter Additional Health Concerns Infection Onset Date Last Indicated Resolved Time COVID - 19 08/01/2024 08/01/2024 08/01/2024 3:20 PM CDT Assessment Noted Time PHQ-9 Depression Total Score: 0 07/21/19 21 3:00 PM CDT documented as of this encounter Care Teams Customer Sales Distributor Relationship Specialty Start Date End Date Justen Gale MD #[address] [address] PCP - General Family Medicine 10/17/17 David Roberts APRN, MANAGER STORAGE #2 [place] [address] Nurse Practitioner Advanced Practice Nurse 01/31/22 Annel Rod MD #[address] [address] Consulting Physician Endocrinology 07/01/22 documented as of this encounter
--- OUTSIDE RECORDS SUMMARY | 2024-11-12 13:38 | XMS_ITS | Encounter Summary ---
Author Organization [facility] Address [address] [place] [address] Phone Care Team Providers Care Skating Rink Manager Name Role Phone Justen Gale MD Primary Care Provider David Roberts APRN, ENERGY ECONOMIST Unavailable Annel Rod MD Unavailable Encounter Details Date Type Department Care Team (Late st Contact Info) Description 06/05/2020 [facility] [address] [place] [address] Pili Elkins APRN, ENERGY ECONOMIST #[address] [address] Frequency of micturition Social History [...] COVID-19? No / Unsure 2020 11:37 AM ELECTRIC METER TESTER SHOP documented as of this encounter Plan of Treatment Upcoming Encounters Date Type Department Care Team (Late st Contact Info) Description 11/13/2024 2:00 PM CDT [facility]ment [facility] [address] [place] [address] Angelito Alegria APRN, ENERGY ECONOMIST #[address] [facility] [address] [place] [address] Discharge Disposition: Discharged to home or Selfcare 11/19/2024 2:00 PM CDT Office Visit [facility] #2 [place] [address] Annel Rod MD #[address] [address] documented as of this encounter Procedures Procedure Name Priority Date/Time Associated Diagnosis Comments URINALYSIS REFLEX IF INDICATED BY ABNORMAL RESULTS Routine 06/05/2020 4:45 PM ELECTRIC METER TESTER SHOP Frequency of micturition documented in this encounter Results * (ABNORMAL) URINALYSIS REFLEX IF INDICATED BY ABNORMAL RESULTS (06/05/2020 4:45 PM ELECTRIC METER TESTER SHOP) SPECIFIC GRAVITY 1.020 1.003 - 1.030 06/05/2020 5:19 PM ELECTRIC METER TESTER SHOP [facility] URINE PH 5.0 5.0 - 9.0 06/05/2020 5:19 PM ELECTRIC METER TESTER SHOP [facility] WBC ESTERASE Negative Negative 06/05/2020 5:19 PM ELECTRIC METER TESTER SHOP [facility] NITRITE Negative Negative 06/05/2020 5:19 PM ELECTRIC METER TESTER SHOP [facility] PROTEIN, RANDOM URINE Negative Negative 06/05/2020 5:19 PM ELECTRIC METER TESTER SHOP [facility] URINE GLUCOSE, QUAL Negative Negative 06/05/2020 5:19 PM ELECTRIC METER TESTER SHOP [facility] URINE KETONES Negative Negative 06/05/2020 5:19 PM ELECTRIC METER TESTER SHOP [facility] UROBILINOGEN Normal Normal mg/dL 06/05/2020 5:19 PM ELECTRIC METER TESTER SHOP [facility] URINE BILIRUBIN Negative Negative 5:19 PM ELECTRIC METER TESTER SHOP [facility] URINE BLOOD 25 /uL(A) Negative leandro/ul 06/05/2020 5:19 PM ELECTRIC METER TESTER SHOP [facility] URINALYSIS COLOR Yellow 06/05/19 5:19 PM ELECTRIC METER TESTER SHOP [facility] URINALYSIS CLARITY Clear 06/05/2020 5:19 PM ELECTRIC METER TESTER SHOP [facility] WBC (Urine) 0-5 Negative, 0-5 /hpf 06/05/2020 5:19 PM ELECTRIC METER TESTER SHOP [facility] URINE RBC'S 3-5(A) Negative, 0-2 /hpf 06/05/2020 5:19 PM ELECTRIC METER TESTER SHOP [facility] EPITHELIAL CELLS Small amount /lpf 2020 5:19 PM ELECTRIC METER TESTER SHOP [facility] BACTERIA, URINE Few(A) Negative /hpf 06/05/2020 5:19 PM ELECTRIC METER TESTER SHOP [facility] Urine URINE SPECIMEN / Unknown Non-Phlebotomy Collection / Unknown 06/05/2020 4:45 PM ELECTRIC METER TESTER SHOP 06/05/2020 5:00 PM ELECTRIC METER TESTER SHOP us Pili Elkins OPEN TENTER OPERATOR, ENERGY ECONOMIST URINE ORDERABLES Fin al Result [facility] #1 [place] [address] documented in this encounter Visit Diagnoses Diagnosis Frequency of micturition Urinary frequency documented in this encounter Additional Health Concerns Infection Onset Date Last Indicated Resolved Time COVID - 19 08/01/2024 08/01/2024 08/01/2024 3:20 PM CDT Assessment Noted Time PHQ-9 Depression Total Score: 0 09/08/19 19 1:00 PM CDT documented as of this encounter Care Teams Skating Rink Manager Relationship Specialty Start Date End Date Justen Gale MD #[address] [facility] [address] [place] [address] PCP - General Family Medicine 10/17/17 David Roberts, OPEN TENTER OPERATOR, ENERGY ECONOMIST #2 [place] [address] Nurse Practitioner Advanced Practice Nurse 01/31/22 Annel Rod MD #[address] [facility] [address] [place] [address] Consulting Physician Endocrinology 07/01/22 documented as of this encounter
--- OUTSIDE RECORDS SUMMARY | 2024-11-12 13:38 | XMS_ITS | Clinical Summary ---
Author Organization [facility] Address [address] [facility] [place] [address] Care Team Providers Care Weight Loss Consultant Name Role Phone Justen Gale MD Primary Care Provider [phone] Source Comments [facility],non-boone hospital center Affiliates and Associated Physician Practices is amultiple site organization consisting of ambulatory clinics and hospital sitesin [place], [place], [place] and [place]. This disclosure is being madepursuant to the Care Everywhere program and may not contain all information available regarding this patient. Last updated 18.[facility] [employer] Allergies Active Allergy Reactions Criticality Noted Date [...] Gluc Sensor (FreeStyle Eileen 2 Sensor Systm) [facility] APPLY 1 SENSOR AND WEAR FOR 14 [...] Team Description 08/14/2024 [place] [address] Josué Bernal PA-C 08/13/2024 [place] [address] Jordana Abdul MD ER UC Follow-up from Last 3 Months Immunizations Immunization [...] medical care, and heating? Somewhat hard 05/16/2023 [facility] of Occupat ional Health - Occupational Stress [...] on file Legal Sex Female 6:53 PM DIRECTOR COUNCIL ON AGING Gender Identity Not on file Sexual Orientation [...] EXAM WITH MONOFILAMENT 10/04/2021 COVID-19 VACCINE ( - season) 2023 05/04/2021, 06/29/2020 DEPRESSION SCREENING 04/24/2024 [...] this topic Medical Devices Implanted Type Area Director Employee Communications Device Identifier Shelf Expiration Date Model / Serial / Lot Lead Nrstm 60cm Penta 3mm Pdl 16 Chnl Implanted:Qt y: 1 on 09/16/2021 by Maxi Gregg MD at [facility] Right: Spine Thoracic [employer] [id number] / / Description:CAMILO Slnt Dura Duraseal Pg Trilysine Amine 5 Implanted:Qt y: 1 on 09/16/2021 by Maxi Gregg MD at [facility] Right: Spine Thoracic [employer] David [id number] / / Description:CAMILO Proclaim Plus 5 Implanted:Qt y: 1 on 02/16/2023 by Maxi Gregg MD at [facility] Left: Back Cardenas Spine [id number] 11/07/2024 3670 / [id number] / Explanted Type Area Director Employee Communications Device Identifier Shelf Expiration Date Model / Serial / Lot Gntr Nrstm [id number] Proclaim Elt Implanted:Qty: 1 on 09/16/2021 by Maxi Gregg MD at [facility] Explanted:Qty: 1 on 10/30/2021 by Maxi Gregg MD at [facility] Right: Spine Thoracic [employer] 3660 / / Description:CAMILO Procedures Procedure Name Priority Date/Time Associated Diagnosis Comments COMPREHENSIVE METABOLIC PANEL STAT 08/09/2024 1:40 PM CDT HEPATITIS C AB SCREEN RFLX NAAT QUANT STAT 02/21/2023 6:30 PM CDT HEMOGLOBIN A1C Routine 12/25/2022 3:56 AM CDT from Last 3 Months or Most Recently Relevant to Health Maintenance Results * (ABNORMAL) COMPREHENSIVE METABOLIC PANEL (08/09/2024 1:40 PM CDT) Glucose 212(H) 70 - 99 mg/dL 08/09/2024 2:09 PM CDT [facility] Sodium 136 136 - 145 mmol/L 08/09/2024 2:09 PM CDT [facility] Potassium 3.9 3.5 - 5.1 mmol/L 08/09/2024 2:09 PM CDT [facility] Chloride 103 98 - 107 mmol/L 08/09/2024 2:09 PM CDT [facility] CO2 24 22 - 29 mmol/L 08/09/2024 2:09 PM CDT [facility] Calcium 9.4 8.4 - 10.4 mg/dL 08/09/2024 2:09 PM CDT [facility] Anion Gap 9 6 - 16 mmol/L 08/09/2024 2:09 PM CDT [facility] BUN 19 7 - 26 mg/dL 08/09/2024 2:09 PM CDT [facility] Creatinine 0.82 0.57 - 1.11 mg/dL 08/09/2024 2:09 PM CDT [facility] Alkaline Phosphatase 68 40 - 150 U/L 08/09/2024 2:09 PM CDT [facility] ALT 22 6 - 57 U/L 08/09/2024 2:09 PM CDT [facility] AST 23 10 - 48 U/L 08/09/2024 2:09 PM CDT [facility] Protein Total 8.0 6.4 - 8.3 gm/dL 08/09/2024 2:09 PM CDT [facility] Albumin 3.3(L) 3.4 - 5.0 gm/dL 08/09/2024 2:09 PM CDT [facility] Bilirubin Total 0.9 0.2 - 1.2 mg/dL 08/09/2024 2:09 PM CDT [facility] eGFR by CKD-EPI 78(L) >=90 mL/min/1.7 3 m2 08/09/2024 2:09 PM CDT [facility] Blood BLOOD SPECIMEN / Unknown Venipuncture / Unknown 08/09/2024 1:40 PM CDT 08/09/2024 1:43 PM CDT Josué Bernal PA-C LAB - CHEMISTRY ORDERABLE S Final Result Performing Organization Address [facility] Co de Phone Number [facility] [address] [place] [address] * HEPATITIS C AB SCREEN RFLX NAAT QUANT (02/21/2023 6:30 PM CDT) Pathologist [facility] Hepatitis C Antibody Non-react hugh Non-reac tive 02/21/2023 7:32 PM CDT [facility] Comment:Hepatitis C Antibody screen indicates no [...] ORDERABLES Fi nal Result Performing Organization Address City/[facility] Co de Phone Number [facility] [address] [place] [phone] [phone] * (ABNORMAL) HEMOGLOBIN A1C (12/25/2022 3:56 AM CDT) Hemoglobin A1c 8.6(H) <=5.6 % 12/25/2022 2:47 PM CDT [facility] Estimated Average Glucose 200 mg/dL 12/25/2022 2:47 PM CDT [facility] Comment: HbA1c Interpretation: Normal : < 5.7% Pre-diabetes: 5.7-6.4% Diabetes: Equal to or greater than 6.5% Test results diagnostic of diabetes should be repeated for confirmation. Treatment target values recommended by ADA and other clinical organizations should be used to evaluate metabolic control in patients. Reference: [place] Diabetes Association, Standards of Care in Diabetes [...] AM CDT Jerrod Rodriguez MD LAB - CHEMISTRY ORDERA BLES Final Result [place] [address] [place] [address], [facility] [[email or web address]] [phone] from Last 3 Months or Most Recently Relevant to Health Maintenance Insurance [facility] MANAGED MEDICARE ADV [facility] MANAGED MEDICARE ADV Advance Directives * Full Code (Latest Code [...] 3:37 AM 03/23/2023 7:14 PM Care Teams Weight Loss Consultant Relationship Specialty Start Date End Date Justen Gale MD PCP - General 07/05/21
--- OUTSIDE RECORDS SUMMARY | 2024-11-12 13:38 | XMS_ITS | Encounter Summary ---
Author Organization [facility] Address [address] [place] [address] Phone Care Team Providers Care Copper Miner Blasting Name Role Phone Lavonne Hathaway MD Primary Care Provider + [phone] Liu Jerez MD Unavailable [phone] Albert Corbin MD Unavailable [phone] Justen Gale MD Primary Care Provider [phone] Lavonne Hathaway MD Primary Care Provider + [phone] Justen Gale MD Primary Care Provider [phone] Khris Arthur MD Unavailable + [phone] Ko Melendez MD Unavailable [phone] John Paul Moyer MD Unavailable Annel Rod MD Unavailable Anali MARSHALL MD, Carlos M. Unavailable [phone] Encounter Details Date Type Department Care Team [...] file Legal Sex Female 12:24 AM LEAD RECOVERER Gender Identity Not on file Sexual Orientation [...] COVID: Recovered 02/10/2022 02/10/2022 06/10/2022 3:05 AM LEAD RECOVERER Exposure, COVID-19 Comment:Added automatically based on COVID19 lab answers indicating exposure risk 02/11/2022 02/11/2022 02/15/2022 9:06 AM C DT COVID: Suspected 05/14/2022 05/14/2022 05/14/2022 10:41 AM LEAD RECOVERER COVID: Suspected 06/07/2022 06/07/2022 06/07/2022 12:28 PM LEAD RECOVERER COVID: Suspected 06/21/2022 06/21/2022 06/21/2022 2:12 AM LEAD RECOVERER COVID: Suspected 10/05/2022 10/05/2022 10/05/2022 7:40 PM CDT COVID: Suspected 01/04/2024 01/04/2024 01/04/2024 10:30 PM CDT COVID: Suspected 02/14/2024 02/14/2024 02/15/2024 12:36 AM CDT COVID: Suspected 07/01/2024 07/01/2024 07/01/2024 2:53 PM CDT COVID: Suspected 07/01/2024 07/01/2024 07/02/2024 3:05 AM CDT documented as of this encounter Care Teams Copper Miner Blasting Relationship Specialty Start Date End Date Lavonne Hathaway MD [address] [place] [address] [place] [address] PCP - General 08/16/16 08/17/17 Justen Gale MD [address] [facility] [address] [address] PCP - General 08/18/17 08/22/17 Lavonne Hathaway MD [address] [place] [address] [place] [address] PCP - General Family Medicine 08/23/17 10/08/17 Justen Gale MD 2 [facility] [place] [address] [address] PCP - General 10/09/17 Liu Jerez MD [address] [place] [address] [place] [address] Consulting Physician Gastroenterology 07/28/17 [place] [address] [facility] [address] [place] [address] Consulting Physician Pulmonary Disease 08/03/17 Khris Arthur MD [address] [facility] [address] [place] [address] Medical Oncologist/Automobile Wrecker Medical Oncology 10/23/17 [place] [address] [facility] [address] [place] [address] Surgeon Orthopedic Surgery 10/23/17 [place] [address] [facility] [address] [place] [address] Consulting Physician Pain Management 10/23/17 [place] [address] [facility] [address] [place] [address] Referring Physician General Surgery 01/26/18 [place] [address] [facility] [address] [place] [address] Consulting Physician Neurology 01/26/18 documented as of this encounter
--- OUTSIDE RECORDS SUMMARY | 2024-11-12 13:38 | XMS_ITS | Encounter Summary ---
Author Organization [facility] Address [address] [place] [address] Phone Care Team Providers Care Car Rental Manager Name Role Phone Justen Gale MD Primary Care Provider David Roberts APRN, WRINGER MACHINE OPERATOR Unavailable Annel Rod MD Unavailable Reason for Visit * Reason Comments Medication Refill Encounter Details Date Type Department Care Team (Late st Contact Info) Description 07/14/2022 Refill [facility] #2 [place] [address] Justen Gale MD #[address] [address] Medication Refill Social History Tobacco Use Types [...] 11/13/2024 2:00 PM CDT Appointment [facility] Cardiology Services 1 [place] [phone] Angelito Alegria APRN, WRINGER MACHINE OPERATOR #2 [facility] [address] [place] [address] Discharge Disposition: Discharged to home or Selfcare 11/19/2024 2:00 PM CDT Office Visit [facility] - Endocr[facility]ology - [place] #2 [place] [address] Annel Rod MD #2 [facility] [address] [place] [address] documented as of this encounter Visit Diagnoses Not on filedocumented in this encounter Additional Health Concerns Infection Onset Date Last Indicated Resolved Time COVID - 19 08/01/2024 08/01/2024 08/01/2024 3:20 PM CDT Assessment Noted Time PHQ-9 Depression Total Score: 0 07/21/19 21 3:00 PM CDT documented as of this encounter Care Teams Car Rental Manager Relationship Specialty Start Date End Date Justen Gale MD #2 [facility] [address] [place] [address] PCP - General Family Medicine 10/17/17 David Roberts, PROJECT RESERVOIR ENGINEER, WRINGER MACHINE OPERATOR #2 [place] [address] Nurse Practitioner Advanced Practice Nurse 01/31/22 Annel Rod MD #2 [facility] [address] [place] [address] Consulting Physician Endocrinology 07/01/22 documented as of this encounter
--- OUTSIDE RECORDS SUMMARY | 2024-11-12 13:39 | XMS_ITS | Encounter Summary ---
Author Organization [facility] Address [address] [place] [address] Phone Care Team Providers Care Clinical Data Analyst Name Role Phone Justen Gale MD Primary Care Provider David Roberts APRN, MANAGER PROVIDER RELATIONS Unavailable [phone] Annel Rod MD Unavailable Reason for Visit * Reason Onset Date Comments Advice Only 08/19/2024 Follow-up 08/19/2024 Encounter Details Date Type Department Care Team (Late st Contact Info) Description 08/19/2024 Telephone [facility] - [facility] #2 [place] [address] Justen Gale MD #[address] [address] Advice Only; Follow-up Social History Tobacco Use Types Packs/Day Years Used Date Smoking Tobacco: Never Smokeless Tobacco: Never Alcohol Use Standard Drinks/Week Comments No 0 (1 standard drink = 0.6 oz pur e alcohol) [facility] Utilities Answer Date Recorded In [...] 1-9 0 07/23 [facility] - Occupational Stress Questionnaire Answer Date [...] time in the past [address] [facility], were you homeless or living [...] visit * Telephone Encounter - Angelito Alegria, DESIGN SPECIALIST, MANAGER PROVIDER RELATIONS - 08/19/2024 9:04 AM CDT Forwarding * Telephone Encounter - Isaura Weiss RN - 08/19/2024 8:37 AM CDT Situation: Strep throat follow up Background: Patient contacting PCP office. Patient was seen in ED on 08/09 and 08/12 in [place] (records in chart). Diagnosed with strep. Assessment: [...] CDT Symptom: Sore Throat Outcome: Transfer to strategy intern queue Reason: Caller denied all higher acuity questions The caller accepted this outcome. Caller Denied: * Struggling for each breath (severe trouble breathing) * Can't swallow saliva (drooling) documented in this encounter Plan of Treatment Upcoming Encounters Date Type Department Care Team (Late st Contact Info) Description 11/13/2024 2:00 PM CDT [facility] 1 [place] [address] Angelito Alegria APRN, MANAGER PROVIDER RELATIONS #[address] [address] Discharge Disposition: Discharged to home or Selfcare 11/19/2024 2:00 PM CDT Office Visit [facility] [place] #[address] [place] [address] Annel Rod MD #2 [facility] [address] [place] [address] documented as of this encounter Visit Diagnoses Not on filedocumented in this encounter Additional Health Concerns Assessment Noted Time PHQ-9 Depression Total Score: 0 08/02/19 25 1:09 PM CDT documented as of this encounter Care Teams Clinical Data Analyst Relationship Specialty Start Date End Date Justen Gale MD #2 [facility] [address] [place] [address] PCP - General Family Medicine 10/17/17 David Roberts, DESIGN SPECIALIST, MANAGER PROVIDER RELATIONS #2 [place] [address] Nurse Practitioner Advanced Practice Nurse 01/31/22 Annel Rod MD #[address] [address] Consulting Physician Endocrinology 07/01/22 documented as of this encounter
--- OUTSIDE RECORDS SUMMARY | 2024-11-12 13:39 | XMS_ITS | Encounter Summary ---
Author Organization [facility] Address [address] [place] [address] Phone Care Team Providers Care Final Inspector Balance Wheel Name Role Phone Justen Gale MD Primary Care Provider [phone] David Roberts APRN, OUTGOING INSPECTOR Unavailable Annel Rod MD Unavailable Reason for Visit * Reason Comments Medication Refill Encounter Details Date Type Department Care Team (Late st Contact Info) Description 08/07/2023 Refill [facility] - [place] #2 [place] [address] Annel Rod MD #[address] [address] Medication Refill Social History [...] 11/13/2024 2:00 PM CDT Appointment [facility] Cardiology Services 1 [place] [address] Angelito Alegria APRN, OUTGOING INSPECTOR #[address] [address] Discharge Disposition: Discharged to home or Selfcare 11/19/2024 2:00 PM CDT Office Visit [facility] #2 [place] [address] Annel Rod MD #[address] [address] documented as of this encounter Visit Diagnoses Not on filedocumented in this encounter Additional Health Concerns Infection Onset Date Last Indicated Resolved Time COVID - 19 08/01/2024 08/01/2024 08/01/2024 3:20 PM CDT Assessment Noted Time PHQ-9 Depression Total Score: 8 01/18/20 2:24 PM CDT documented as of this encounter Care Teams Final Inspector Balance Wheel Relationship Specialty Start Date End Date Justen Gale MD #[address] [place] [address] PCP - General Family Medicine 10/17/17 David Roberts APRN, OUTGOING INSPECTOR #2 [place] [address] Nurse Practitioner Advanced Practice Nurse 01/31/22 Annel Rod MD #[address] [address] Consulting Physician Endocrinology 07/01/22 documented as of this encounter
--- OUTSIDE RECORDS SUMMARY | 2024-11-12 13:39 | XMS_ITS | Encounter Summary ---
Author Organization [facility] Address [address] [place] [address] Phone Care Team Providers Care Manager Of Program Name Role Phone Justen Gale MD Primary Care Provider [phone] David Roberts APRN, ENVIRONMENTAL CONSERVATION OFFICER Unavailable Annel Rod MD Unavailable Reason for Visit * Reason Comments Medication Refill Encounter Details Date Type Department Care Team (Late st Contact Info) Description 09/30/2023 Refill [facility] - [place] #2 [place] [address] Annel Rod MD #[address] [address] Medication Refill Social History Tobacco [...] 2:00 PM CDT Appointment [facility] Cardiology Services 1 [place] [address] Angelito Alegria APRN, ENVIRONMENTAL CONSERVATION OFFICER #[address] [address] Discharge Disposition: Discharged to home or Selfcare 11/19/2024 2:00 PM CDT Office Visit [facility] #2 [place] [address] Annel Rod MD #[address] [address] documented as of this encounter Visit Diagnoses Not on filedocumented in this encounter Additional Health Concerns Infection Onset Date Last Indicated Resolved Time COVID - 19 08/01/2024 08/01/2024 08/01/2024 3:20 PM CDT Assessment Noted Time PHQ-9 Depression Total Score: 8 01/18/20 2:24 PM CDT documented as of this encounter Care Teams Manager Of Program Relationship Specialty Start Date End Date Justen Gale MD #[address] [place] [address] PCP - General Family Medicine 10/17/17 David Roberts APRN, ENVIRONMENTAL CONSERVATION OFFICER #2 [place] [address] Nurse Practitioner Advanced Practice Nurse 01/31/22 Annel Rod MD #[address] [address] Consulting Physician Endocrinology 07/01/22 documented as of this encounter
--- OUTSIDE RECORDS SUMMARY | 2024-11-12 13:39 | XMS_ITS | Encounter Summary ---
Author Organization [facility] Address [address] [place] [address] Phone Care Team Providers Care Teachers' Assistant Name Role Phone Justen Gale MD Primary Care Provider David Roberts APRN, LINEN GRADER Unavailable Annel Rod MD Unavailable Reason for Visit * Reason Onset Date Comments Sore Throat 09/02/2024 Encounter Details Date Type Department Care Team (Late st Contact Info) Description 09/02/2024 Nurse Triage [facility] Central Call Center [address] [place] [address] Justen Gale MD #[address] [address] Sore Throat Social History Tobacco Use Types Packs/Day Years Used Date Smoking Tobacco: Never Smokeless Tobacco: Never Alcohol Use Standard Drinks/Week Comments No 0 (1 standard drink = 0.6 oz pur e alcohol) [facility] Utilities Answer Date Recorded In [...] How often do you attend chur or lutheran services? More than 4 times [...] Total Score - Questions 1-9 0 07/23 [facility] of Occupat ional Health - Occupational [...] any time in the past 12 m [facility], were you homeless or living in [...] Pharmacy, medications, and allergies reviewed. Discussed utilizing Solaiemes to: discuss if they would prefer a Solaiemes message or phone call response - See [...] Ulcers - Caller Reports Outcome: Transfer to transition of care specialist queue Reason: Caller denied all higher acuity questions The caller accepted this outcome. Caller Denied: * Struggling for each breath (severe trouble breathing) * Can't swallow saliva (drooling) documented in this encounter Plan of Treatment Upcoming Encounters Date Type Department Care Team (Late st Contact Info) Description 11/13/2024 2:00 PM CDT Appointment [facility] Cardiology Services 1 [place] [address] Angelito Alegria APRN, LINEN GRADER #[address] [address] Discharge Disposition: Discharged to home or Selfcare 11/19/2024 2:00 PM CDT Office Visit [facility] - Endocr[facility]ology - [place] #2 [place] [address] Annel Rod MD #[address] [address] documented as of this encounter Visit Diagnoses Not on filedocumented in this encounter Additional Health Concerns Assessment Noted Time PHQ-9 Depression Total Score: 0 08/02/19 25 1:09 PM CDT documented as of this encounter Care Teams Teachers' Assistant Relationship Specialty Start Date End Date Justen Gale MD #[address] [address] PCP - General Family Medicine 10/17/17 David Roberts APRN, LINEN GRADER #2 [place] [address] Nurse Practitioner Advanced Practice Nurse 01/31/22 Annel Rod MD #[address] [phone] Consulting Physician Endocrinology 07/01/22 documented as of this encounter
--- OUTSIDE RECORDS SUMMARY | 2024-11-12 13:39 | XMS_ITS | Encounter Summary ---
Author Organization [facility] Address [address] [place] [address] Phone Care Team Providers Care Senior Sales Assistant Name Role Phone Justen Gale MD Primary Care Provider [phone] David Roberts APRN, TOBACCO CLASSER Unavailable Annel Rod MD Unavailable Reason for Visit * Reason Onset Date Comments Advice Only 11/21/2023 Encounter Details Date Type Department Care Team (Late st Contact Info) Description 11/21/2023 Telephone [facility] Call [facility] [address] [place] [address] Justen Gale MD #[address] [address] Advice Only Social History Tobacco Use Types [...] 11/21/2023 3:17 PM CDT RFC: Alejandra from [facility] is calling to state that [...] Description 11/13/2024 2:00 PM CDT Appointment [facility] Cardiology Services 1 [place] [address] Angelito Alegria, POWER TRANSFORMER INSPECTOR, TOBACCO CLASSER #2 [facility] [address] [place] [address] Discharge Disposition: Discharged to home or Selfcare 11/19/2024 2:00 PM CDT Office Visit [facility] - [place] #2 [place] [address] Annel Rod MD #2 [facility] [address] [place] [address] documented as of this encounter Visit Diagnoses Not on filedocumented in this encounter Additional Health Concerns Infection Onset Date Last Indicated Resolved Time COVID - 19 08/01/2024 08/01/2024 08/01/2024 3:20 PM CDT Assessment Noted Time PHQ-9 Depression Total Score: 8 01/18/20 2:24 PM CDT documented as of this encounter Care Teams Senior Sales Assistant Relationship Specialty Start Date End Date Justen Gale MD #2 [facility] [address] [place] [address] PCP - General Family Medicine 10/17/17 David Roberts APRN, NETTA #2 [place] [address] Nurse Practitioner Advanced Practice Nurse 01/31/22 Annel Rod MD #2 [facility] [address] [place] [phone] Consulting Physician Endocrinology 07/01/22 documented as of this encounter
--- OUTSIDE RECORDS SUMMARY | 2024-11-12 13:39 | XMS_ITS | Clinical Summary ---
Author Organization [facility] Address [address] [place] [address] Phone Care Team Providers Care Medical Insurance Clerk Name Role Phone Justen Gale MD Primary Care Provider [phone] David Roberts APRN, SLITTER CREASER SLOTTER HELPER Unavailable [phone] Annel Rod MD Unavailable Allergies Active Allergy [...] complication, without long-term current use of insulin ([facility]) Diagnosis: Diabetes Type 2 Blood testing frequency: 4 times a day 1 Each 11/22/19 18 Active Glucose Blood (ONE TOUCH ULTRA TEST) Strip Test four times daily. 400 Strip 3 02/11/20 20 Active Misc. Devices MiscIndication s:LUL (obstructive sleep apnea) Supply and instructions: 1 Each 09/10/19 21 Active OneTouch Delica Lancets 33G [facility] 1 Lancet by Does [...] Tablet by mouth. 12/28/19 24 Active Multiple Vitamins-Glades als (WOMENS MULTI PO) Take by mouth. [...] taking until cleared by PCP office or quality control tech. Will need to taper off slowly. Indications: [...] taking until cleared by PCP office or quality control tech. Will need to taper off slowly. Indications: [...] Overview: Added automatically from request for surgery [id number] Lymphedema of left upper extremity 08/09/2016 Pulmonary embolism 08/09/2016 Overview (11/09/2017): Last Assessment & Plan: On Rivaroxaban Arthralgia of ankle 01/26/2015 Cellulitis of breast 11/11/2014 Encounters Date Type Department Care Team Description 11/07/2024 [facility] [address] [place] [address] Justen Gale MD Advice Only; Fatigue; Shortness of Breath 11/06/2024 MyChart RX Renewal [facility]2 [place] [address] Justen Gale MD Medication Renewal Declined 11/05/2024 [facility] [place] [phone] Justen Gale MD Medication Refill 10/28/2024 MyChart RX Renewal [facility] #2 [place] [phone] Justen Gale MD Medication Renewal Reviewed 10/17/20[facility] [place] [phone] Annel Rod MD Medication Refill 10/08/2024 Nurse Triage [facility] Central Call Center [address] [place] [phone] Justen Gale MD Abdominal Pain 09/30/2024 MyChart RX Renewal [facility] #2 [place] [address] Dulce Wolff, SPACE AND MISSILE OPERATIONS SPACELIFT, SLITTER CREASER SLOTTER HELPER Medication Renewal Reviewed 09/29/2024 Nurse Triage [facility] Central Call [address] [address] Justen Gale MD Urinary Tract Infection 09/23/2024 Nurse Triage [facility] Central Call [address] [address] Justen Gale MD Breathing Problem; Pain 09/23/2024 Telephone [facility] Central Call Center [address] [place] [address] Justen Gale MD Pain 09/11/2024 Telephone [facility] Central Call Center [address] [place] [phone] Justen Gale MD Follow-up 09/06/2024 1:15 PM CDT Office Visit [facility] #2 [place] [phone] Oehl, Dulce N, SPACE AND MISSILE OPERATIONS SPACELIFT, SLITTER CREASER SLOTTER HELPER Enlarged tonsils (Primary Dx); Polymyalgia rheumatica (HCC); Oral candidiasis; Edema, unspecified type Discharge Disposition: Discharged to home or Selfcare 09/06/2024 Travel 09/03/2024 Telephone [facility] #2 [place] [address] Justen Gale MD Follow-up 09/02/2024 Nurse [facility]riage [facility] Central Call Center [address] [place] [phone] Justen Gale MD Sore Throat 08/20/2024 1:15 PM CDT Office Visit [facility] #2 [place] [address] Justen Gale MD Acute maxillary sinusitis, recurrence not specified (Primary Dx) Discharge Disposition: Discharged to home or Selfcare 08/20/2024 Travel 08/19/2024 Telephone [facility] #2 [place] [address] Justen Gale MD Advice Only; Follow-up 08/14/[address] [facility] #2 [place] [address] Annel Rod MD High Blood Sugar 08/13/2024 Nurse Triage [address] [address] Justen Gale MD High Blood Sugar from Last 3 Months Immunizations Immunization Administration Dates Next Due Covid-19 Vaccine, Vector-nr, Rs-ad26, Pf, 0.5 Ml ([employer]) 06/29/2020 Influenza Vaccine greater than 3 yrs [...] 0.6 oz pur e alcohol) [facility] Utilities Answer Date Recorded In the past [...] declined 08/06/2024 How often do you attend [facility] ch or mormon services? More than 4 [...] Total Score - Questions 1-9 0 07/23 [facility] [place] of Occupat ional Health - Occupational Stress [...] in the past 12 m [facility], were you homeless or living in a [...] PM CDT Appointment [facility] Cardiology Services 1 [place] [address] Angelito Alegria, SPACE AND MISSILE OPERATIONS SPACELIFT, SLITTER CREASER SLOTTER HELPER #2 [facility] [address] [place] [address] Discharge Disposition: Discharged to home or Selfcare 11/19/2024 2:00 PM CDT Office Visit [facility] Endocr[facility]ology - [place] #2 [place] [address] Annel Rod MD #2 [facility] [address] [place] [address] Health Maintenance Due Date Last Done Comments [...] Colorectal Cancer Screening 01/08/2025 Diabetes: Nephropathy Screening 11/07/2025 11/07/2024, 08/02/2024, 08/01/2024, Additional history exists Td Immunization Every 10 [...] Procedure Name Priority Date/Time Associated Diagnosis Comments PROTIME (PT) (PROTHROMBIN TIME) 11/07/2024 12:00 AM CDT LACTIC ACID (LACTATE) 11/07/2024 12:00 AM CDT THYROID STIMULATING HORMONE (TSH) 11/07/2024 12:00 AM CDT B-TYPE NATRIURETIC PEPTIDE (BNP) 11/07/2024 12:00 AM CDT MAGNESIUM (MG) 11/07/2024 12:00 AM CDT CMP (COMPREHENSIVE METABOLIC PANEL) 11/07/2024 12:00 AM CDT APTT (PTT) 11/07/2024 12:00 AM CDT COMPLETE BLOOD COUNT (CBC) WITH DIFF 11/07/2024 12:00 AM CDT URINALYSIS (UA) RANDOM 11/07/2024 12:00 AM CDT INTERNAL MEDICINE CONSULT 10/17/2024 12:[address] - ABDOMEN/PELVIS 10/15/2024 1 2:00 AM CDT SURGERY CONSULT 10/12/2024 12:00 AM CDT INTERNAL MEDICINE CONSULT 10/12/2024 12:[address] - ABDOMEN/PELVIS 10/12/2024 1 2:[address] - ABDOMEN/PELVIS 10/08/2024 1 2:[address] - SPINE 10/06/2024 12:[address] - ABDOMEN/PELVIS 10/03/2024 1 2:00 AM CDT [id number] CONSULT 09/27/2024 12:00 AM CDT EXTERNAL ENT REFERRAL Routine 09/27/2024 12:00 AM CDT XR - CHEST 09/27/2024 12:00 AM CDT PAIN CONSULT 09/19/2024 12:[address] - HEAD/NECK 08/13/2024 12:00 AM CDT HEMOGLOBIN, A1C 10/02/2023 12:00 AM CDT HM COLONOSCOPY Routine 01/09/2020 AMB REFERRAL TO PODIATRY Routine 08/13/2019 POCT STOOL, OCCULT BLOOD, DIAGNOSTIC Routine 09/07/2018 1:20 PM CDT Generalized abdominal pain from Last 3 Months or Most Recently Relevant to Health Maintenance Results * URINALYSIS (UA) RANDOM (11/07/2024 12:00 AM CDT) 11/07/2024 us Provider Scan URINE ORDERABLES Final Result Performing Organization Address City/[facility]/ZIP Co de Phone Number SCAN * THYROID STIMULATING HORMONE (TSH) (11/07/2024 12:00 AM CDT) 11/07/2024 us Provider Scan CHEMISTRY ORDERABLES Final Resul t SCAN * APTT (PTT) (11/07/2024 12:00 AM CDT) 11/07/2024 us Provider Scan HEMATOLOGY ORDERABLES Final Resu lt Performing Organization Address [facility] de Phone Number SCAN * PROTIME (PT) (PROTHROMBIN TIME) (11/07/2024 12:00 AM CDT) INR 2.0 SCAN 11/07/2024 us Provider Scan HEMATOLOGY ORDERABLES Final Resu lt Performing Organization Address [facility] de Phone Number SCAN * MAGNESIUM (MG) (11/07/2024 12:00 AM CDT) 11/07/2024 us Provider Scan CHEMISTRY ORDERABLES Final Resul t Performing Organization Address [facility] de Phone Number SCAN * LACTIC ACID (LACTATE) (11/07/2024 12:00 AM CDT) 11/07/2024 us Provider Scan CHEMISTRY ORDERABLES Final Resul t Performing Organization Address [facility] de Phone Number SCAN * CMP (COMPREHENSIVE METABOLIC PANEL) (11/07/2024 12:00 AM CDT) 11/07/2024 us Provider Scan CHEMISTRY ORDERABLES Final Resul t Performing Organization Address [facility] de Phone Number SCAN * COMPLETE BLOOD COUNT (CBC) WITH DIFF (11/07/2024 12:00 AM CDT) 11/07/2024 us Provider Scan HEMATOLOGY ORDERABLES Final Resu lt Performing Organization Address [facility] de Phone Number SCAN * B-TYPE NATRIURETIC PEPTIDE (BNP) (11/07/2024 12:00 AM CDT) 11/07/2024 us Provider Scan CHEMISTRY ORDERABLES Final Resul t Performing Organization Address [facility] de Phone Number SCAN * INTERNAL MEDICINE CONSULT (10/17/2024 12:00 AM CDT) Only the most recent of2 resultswithin the time period is included. 10/17/2024 us Provider Scan GENERIC SCAN ORDERS CONSULT Deann l Result Performing Organization Address [facility] de Phone Number SCAN * CT - ABDOMEN/PELVIS (10/15/2024 12:00 AM CDT) Only the most recent of4 resultswithin the time period is included. 10/15/2024 us Provider Scan IMG CT ORDERABLES Final Result Performing Organization Address [facility] de Phone Number SCAN * SURGERY CONSULT (10/12/2024 12:00 AM CDT) 10/12/2024 us Provider Scan GENERIC SCAN ORDERS CONSULT Deann l Result Performing Organization Address [facility] de Phone Number SCAN * CT - SPINE (10/06/2024 12:00 AM CDT) 10/06/2024 us Provider Scan IMG CT ORDERABLES Final Result Performing Organization Address [facility] de Phone Number SCAN * EXTERNAL ENT REFERRAL (09/27/2024 12:00 AM CDT) 09/27/2024 us Dulce N Oehl SPACE AND MISSILE OPERATIONS SPACELIFT, SLITTER CREASER SLOTTER HELPER OUTPT REFERRALS EXT/INT F inal Result Performing Organization Address [facility] de Phone Number SCAN * XR - CHEST (09/27/2024 12:00 AM CDT) 09/27/2024 us Provider Scan IMG DIAGNOSTIC ORDERABLES Final Result Performing Organization Address [facility] de Phone Number SCAN * [id number] CONSULT (09/27/2024 12:00 AM CDT) 09/27/2024 us Provider Scan GENERIC SCAN ORDERS CONSULT Deann l Result Performing Organization Address [facility] de Phone Number SCAN * PAIN CONSULT (09/19/2024 12:00 AM CDT) 09/19/2024 us Justen Gale MD GENERIC SCAN ORDERS CONSULT F inal Result Performing Organization Address [facility] de Phone Number SCAN * CT - HEAD/NECK (08/13/2024 12:00 AM CDT) 08/13/2024 us Provider Scan IMG CT ORDERABLES Final Result Performing Organization Address [facility] de Phone Number SCAN * HEMOGLOBIN, A1C (10/02/2023 12:00 AM CDT) HGB-A1C 7.8 SCAN 10/02/2023 us Provider Scan CHEMISTRY ORDERABLES Final Resul t Performing Organization Address [facility] Co de Phone Number SCAN * HM COLONOSCOPY (01/09/2020) us Genaro Jensen DO PROCEDURE/MINOR SURGICAL ORDERA BLES Final Result * AMB REFERRAL TO PODIATRY (08/13/2019) us Alvarez Mensah MD OUTPATIENT REFERRALS Final Res ult * POCT STOOL, OCCULT BLOOD, DIAGNOSTIC (09/07/2018 1:20 PM CDT) OCCULT BLOOD, STOOL Negative Negative, Other POC HEMOCULT CONTROL [employer] 09/07/2018 1:20 PM CDT us Pili Elkins SPACE AND MISSILE OPERATIONS SPACELIFT, SLITTER CREASER SLOTTER HELPER POINT OF CARE TESTIN G (MANUAL) Final Result from Last 3 Months or Most Recently Relevant to Health Maintenance Insurance MEDICAID [place] MEDICARE C [facility] Care Teams Medical Insurance Clerk Relationship Specialty Start Date End Date Justen Gale MD #2 [place] [address] PCP - General Family Medicine 10/17/17 David Roberts APRN, SLITTER CREASER SLOTTER HELPER #[address] [place] [address] Nurse Practitioner Advanced Practice Nurse 01/31/22 Annel Rod MD #[address] [address] Consulting Physician Endocrinology 07/01/22
--- OUTSIDE RECORDS SUMMARY | 2024-11-12 13:39 | XMS_ITS | Encounter Summary ---
Author Organization [facility] Address [address] [place] [address] Phone Care Team Providers Care Casing Crew Pusher Name Role Phone Justen Gale MD Primary Care Provider David Roberts APRN, UNIT DIRECTOR Unavailable [phone] Annel Rod MD Unavailable Reason for Visit * Reason Onset Date Comments Pain 09/23/2024 Encounter Details Date Type Department Care Team (Late st Contact Info) Description 09/23/2024 Telephone [facility] Call Center [address] [place] [address] Justen Gale MD #[address] [address] Pain Social History Tobacco Use Types Packs/Day Years Used Date Smoking Tobacco: Never Smokeless Tobacco: Never Alcohol Use Standard Drinks/Week Comments No 0 (1 standard drink = 0.6 oz pur e alcohol) [facility] Utilities Answer Date Recorded In the past 12 months has [employer] electric, gas, oil, or water company threatened [...] 07/23 [facility] of Occupat ional Health - [...] any time in the past 12 m [facility], were you homeless or [...] - patient has RA Outcome: Transfer to wood preparation supervisor queue Reason: Caller denied all higher acuity questions The caller accepted this outcome. Caller Denied: * Chest pain * Headache * Eye pain * Abdominal pain * Genital pain documented in this encounter Plan of Treatment Upcoming Encounters Date Type Department Care Team (Late st Contact Info) Description 11/13/2024 2:00 PM CDT Appointment [facility] Cardiology Services 1 [place] [address] Angelito Alegria APRN, UNIT DIRECTOR #2 [facility] [address] [place] [address] Discharge Disposition: Discharged to home or Selfcare 11/19/2024 2:00 PM CDT Office Visit [facility] - [place] #2 [place] [address] Annel Rod MD #2 [facility] [address] [place] [address] documented as of this encounter Visit Diagnoses Not on filedocumented in this encounter Additional Health Concerns Assessment Noted Time PHQ-9 Depression Total Score: 0 08/02/19 25 1:09 PM CDT documented as of this encounter Care Teams Casing Crew Pusher Relationship Specialty Start Date End Date Justen Gale MD #2 [facility] [address] [place] [address] PCP - General Family Medicine 10/17/17 David Roberts APRN, UNIT DIRECTOR #2 [place] [address] Nurse Practitioner Advanced Practice Nurse 01/31/22 Annel Rod MD #2 [facility] [address] [place] [address] Consulting Physician Endocrinology 07/01/22 documented as of this encounter
--- OUTSIDE RECORDS SUMMARY | 2024-11-12 16:41 | XMS_ITS | Clinical Summary ---
Author Organization [facility] Address [address] [place] [address] Care Team Providers Care Machine Records Units Supervisor Name Role Phone Liu Jerez MD Unavailable Albert Corbin MD Unavailable Justen Gale MD Primary Care Provider Khris Arthur MD Unavailable [phone] Ko Melendez MD Unavailable [phone] John Paul Moyer MD Unavailable Annel Rod [...] 05/22/2024 Assessment & Plan (05/26/2024 10:08 AM RESIDENTIAL LIVING ASSISTANT): Presenting with urinary symptoms of right [...] 05/22/2024 Assessment & Plan (05/25/2024 7:52 AM RESIDENTIAL LIVING ASSISTANT): Hx of breast cancer c/b DVT/bilateral [...] 05/22/2024 Assessment & Plan (05/22/2024 1:14 PM RESIDENTIAL LIVING ASSISTANT): -long-standing chronic back pain -CT L [...] 09/12/2021 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) 2021 snf (current) use 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 inhibitors 10/17/2019 Thyroid [...] long-term current use of insulin ([facility]) 10/23/2017 Assessment & Plan (10/23/2017 [...] 10/13/2017 Assessment & Plan (05/22/2024 12:29 PM RESIDENTIAL LIVING ASSISTANT): -Hx stage II, ER positive, HER2 [...] 08/01/2017 Assessment & Plan (05/22/2024 12:33 PM RESIDENTIAL LIVING ASSISTANT): -Hx LUL -Hospital provided CPAP ordered History of DVT (deep vein thrombosis) 08/01/2017 History of pulmonary embolism 08/01/2017 Generalized weakness 07/27/2017 Dyspnea 07/27/2017 Unintentional weight loss 07/27/2017 Acute cystitis without hematuria 07/27/2017 Nausea and vomiting 07/26/2017 Overview (07/28/2017): Added automatically from request for surgery [id number] Pulmonary embolism 08/09/2016 Assessment & Plan (10/23/2017 2:05 AM CDT): On Rivaroxaban Lymphedema of left upper extremity 08/09/2016 Assessment & Plan (05/25/2024 7:53 AM RESIDENTIAL LIVING ASSISTANT): S/p L axillary lymph node dissection [...] syndrome Assessment & Plan (05/22/2024 11:18 AM RESIDENTIAL LIVING ASSISTANT): -continue home Requip 5mg nightly Pain of lower extremity 03/12/2013 Overview (07/29/2016): Leg pain Essential hypertension Assessment & Plan (05/23/2024 10:42 AM RESIDENTIAL LIVING ASSISTANT): -Chart history of HTN but not on meds -BP elevated on admission, likely some pain contributing -Monitor closely once pain under adequate control, discussed following up with PCP for this Chronic anticoagulation Restless leg syndrome 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 Type 2 diabetes mellitus without complication Assessment & Plan (05/24/2024 1:39 PM RESIDENTIAL LIVING ASSISTANT): -Last Ha1c 8.4 in 2023, repeat [...] oz pur e alcohol) [facility] [employer] Answer Date Recorded In the past 12 months has [employer], gas, oil, or water [employer] threatened to shut off services in your [...] any time in the past 12 m [facility], were you homeless or living [...] file Legal Sex Female 12:24 AM RESIDENTIAL LIVING ASSISTANT Gender Identity Not on file Sexual [...] CDT HEMOGLOBIN A1C STAT 05/21/2024 4:20 PM RESIDENTIAL LIVING ASSISTANT LIPID PANEL STAT 05/21/2024 4:20 PM RESIDENTIAL LIVING ASSISTANT DEXA AXIAL SKELETON BONE DENSITY 1 [...] performed by: [facility], [address] [place] [address]., [id number] Blood 07/01/2024 2:02 PM CDT 07/01/2024 2:12 PM CDT us Ilana Stevens MD LAB BLOOD ORDERABLES F inal Result [facility] [address] [facility] Department [place] [address] * (ABNORMAL) Hemoglobin A1c (05/21/2024 4:20 PM RESIDENTIAL LIVING ASSISTANT) Hgb A1C 8.7(H) 4.0 - 5.6 % Estimated Average Glucose 203 mg/dL [facility] Comment: The ADA recommends reporting an estimated Average Glucose (eAG) with all Hemoglobin A1c results using the equation derived from a study of 507 normal and diabetic adults. Minority populations were underrepresented and children were not included. (Diabetes Care 2020; 43(S1): S66-S76). The eAG is not equivalent to a fasting glucose. Blood 05/21/2024 4:20 PM RESIDENTIAL LIVING ASSISTANT 05/21/2024 4:55 PM RESIDENTIAL LIVING ASSISTANT us Leo Henry MD LAB BLOOD ORDERABLES Final Result [facility] Department [place] [address] * (ABNORMAL) Lipid panel (05/21/2024 4:20 PM RESIDENTIAL LIVING ASSISTANT) Cholesterol 205(H) 30 - 199 mg/dL [...] 2017. Triglycerides 92 <=149 mg/dL [facility] Comment: Interpretive Data Ages < [...] 2017. HDL 55 >=40 mg/dL [facility] Comment: Interpretive Data Ages < [...] LDL, calculated 134(H) <=129 mg/dL [facility] Comment: Interpretive Data Ages < [...] revised on 2023. Non-HDL Cholesterol 150 mg/dL [facility] Comment: Interpretive Data Ages < or [...] last revised on 2017. Chol/HDL ratio 4 [facility] Blood 05/21/2024 4:20 PM RESIDENTIAL LIVING ASSISTANT 05/21/2024 4:50 PM RESIDENTIAL LIVING ASSISTANT Narrative [facility] - 05/22/2024 4:17 PM RESIDENTIAL LIVING ASSISTANT Reflex us Leo Henry MD LAB BLOOD ORDERABLES Final Result [facility] [place] [address] * Dexa Axial Skeleton Bone Density 1 or 2 Site (08/02/2022 10:53 AM CDT) Anatomical Region Laterality Modality Body N/A Radiographic Lizeth ging Narrative 08/02/2022 3:34 PM CDT Patient Name: Karly Marques Date of : 1955 Date of scan: 08/02/2022 Bone mineral density was performed on a HoloNEBOTRADE Discovery Densitometer. Based on machine cross-calibration and [...] by the International Society of Clinical Densitometry. [id number] us Khris Arthur MD IMG DXA PROCEDURES [...] agrees with it. ACC# Date Time Exam [id number] Aug 19, 2016 14:27:00 [facility] [place] [id number] Dia Mamm, inc CAD, unilat L Technologist(s): Carla Harris; ; [id number] Aug 19, 2016 15:39:00 [facility] [place] [id number] Breast US unilateral, ltd L ACC# Date Time Exam [id number] Aug 19, 2016 14:27:00 [facility] [place] [id number] D[employer] Mamm, inc CAD, unilat L Technologist(s): Carla Harris; ; [id number] Aug 19, 2016 15:39:00 [facility] [place] [id number] Breast US unilateral, ltd L EXAMINATION: LEFT [...] SARABIA M.D. on Aug 19 2016 4:20P [id number] Procedure Note Miscellaneous, Not In File / Provider, MD Tyler - 09/17/2016 ANTHONY SARABIA M.D. JUDY RINCON M.D. FINAL REPORT The radiology attending physician has personally reviewed this study, and has reviewed and/or edited this written report and agrees with it. ACC# Date Time Exam [id number] Aug 19, 2016 14:27:00 [facility] [place] [id number] Diag Mamm, inc CAD, unilat L Technologist(s): Carla Harris; ; [id number] Aug 19, 2016 15:39:00 [facility] [place] [id number] Breast US unilateral, ltd L ACC# Date Time Exam [id number] Aug 19, 2016 14:27:00 [facility] [place] [id number] Diag Mamm, inc CAD, unilat L Technologist(s): Carla Harris; ; [id number] Aug 19, 2016 15:39:00 [facility] [place] [id number] Breast US unilateral, ltd L EXAMINATION: LEFT [...] SARABIA M.D. on Aug 19 2016 4:20P [id number] us Not In File Miscellaneous IMG MAMMO PROCEDURES F inal Result from Last 3 Months or Most Recently Relevant to Health Maintenance Insurance [employer] [facility] MEDICARE ADVANTAGE [facility] MEDICARE ADVANTAGE [facility] MEDICARE ADVANTAGE Advance Directives For more information, please contact: [phone] Documents on File Type Date Recorded Patient Director Camp Expl anation ADVANCE DIRECTIVE 12/23/2021 2:49 PM Power of Radar Signal Processing Engineer-Medical ADVANCE DIRECTIVE 12/23/2021 2:49 PM Living Will [...] Healthcare [facility] Yunior Marques Daughter Health Care Agent Jimmie Marques Spouse First Alternate Health Care Agent Care Teams Machine Records Units Supervisor Relationship Specialty Start Date End Date Justen Gale MD [address] [facility] [address] [place] [address] PCP - General 10/09/17 Liu Jerez MD Consulting Physician Gastroenterology 07/28/17 [place] [address] [facility] [address] [place] [address] Consulting Physician Pulmonary Disease 08/03/17 [place] [address] [place] [address] [address] [place] [address] Medical Oncologist/Health Information Technologist Medical Oncology 10/23/17 [place] [address] [facility] [address] [place] [address] Surgeon Orthopedic Surgery 10/23/17 [place] [address] [address] Consulting Physician Pain Management 10/23/17 [place] [address] [address] Referring Physician General Surgery 01/26/18 [place] [address] [facility] [address] [place] [address] Consulting Physician Neurology 01/26/18
--- OUTSIDE RECORDS SUMMARY | 2024-11-12 16:41 | XMS_ITS ---
Author Organization [facility] Address [address] [facility] [place] [address] Care Team Providers Care Callisthenics Instructor Name Role Phone Justen Gale MD Primary Care Provider [phone] Active Problems Problem Noted Date Diagnosed Date [...]
--- OUTSIDE RECORDS SUMMARY | 2024-11-12 16:41 | XMS_ITS | Clinical Summary ---
Author Organization [facility] Address [facility] [place] [address] Care Team Providers Care Driver Education Instructor Name Role Phone Meena Bansal MD Unavailable [phone] Justen Gale MD Primary Care Provider [phone] Allergies Active Allergy Reactions Criticality Noted Date [...] reflux disease 09/05/2020 Malignant tumor of breast ([facility]) 08/22 Knee pain 09/05/2020 Other chronic pain [...] 03/18/2018 Assessment & Plan (03/18/2018 2:55 AM FILAMENT SHAPER): Acute, patient reported as epigastric pain however may be atypical presentation. Troponins negative x2. Also in differential is GERD, PUD - Admit to observation -Follow-up troponins -Monitor vitals -N.p.o. at midnight - Stress echo in a.m. - Consider cardiology consult based on results of stress test -Begin Protonix Epigastric pain 03/18/2018 Assessment & Plan (03/18/2018 5:39 AM FILAMENT SHAPER): Acute, non radiating, worsens with lying down, [...] Speech impairment 01/30/2018 CVA (cerebral vascular accident) ([facility] HHS/ C) 01/24/2018 Neck pain on right side 12/01/2017 Anxiety and depression 11/12/2017 Chronic anticoagulation 11/09/2017 Constipation 11/09/2017 Uncontrolled type 2 diabetes mellitus with hyperglycemia, with long-term current use of insulin (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 HHS/HCC) 10/17/2017 Assessment & Plan (08/31/2018 12:24 AM CDT): S/p masectomy. -continue exemestane Acute deep vein thrombosis ( DVT) of proximal vein of right lower extremity ([facility]) 10/17/2017 Dysuria 10/17/2017 Hyperthyroidism 10/17/2017 Cancer of overlapping sites of left female breast ([facility]) 10/13/2017 Syncope 09/29/2017 High blood pressure 08/22/2017 Overview (09/05/2020): Last Assessment & Plan: On lisinopril Last Assessment & Plan: On lisinopril Assessment & Plan (08/30/2018 9:57 PM CDT): Chronic. Controlled. -continue home medications Assessment & Plan (03/18/2018 2:51 AM FILAMENT SHAPER): Chronic, BPs currently 127/78 - To new home meds Morbid obesity with BMI of 50.0-59.9, adult 04/2017 Sepsis ([facility]) 08/22/2017 Type 2 diabetes mellitus ([facility]) 08/22 Overview (09/05/2020): Last Assessment & Plan: Hold janument. Start on SSI and accucheks Assessment & Plan (08/30/2018 10:01 PM CDT): Chronic. Controlled. -continue home insulin regimen of lantus 50 units q am -lispro 20 units with breakfast and lunch. 22 units with dinner. Assessment & Plan (03/18/2018 2:53 AM FILAMENT SHAPER): Chronic, patient reports medical compliance with 50 units of Lantus daily and 15 units of Humalog before meals. No recent HbA1c - Monitor POC glucose -[place] home regimen - Consider sliding scale insulin -Follow-up HbA1c Bronchitis 08/20/2017 LUL (obstructive sleep apnea) 08/01/2017 Assessment & Plan (03/18/2018 2:54 AM FILAMENT SHAPER): Chronic, on CPAP at home - Continue home CPAP History of DVT (deep vein thrombosis) 08/01/2017 Assessment & Plan (03/18/2018 2:54 AM FILAMENT SHAPER): Chronic - Continue home Xarelto Chest pressure 08/01/2017 Diet-controlled diabetes mellitus ([facility]HS/H CC) 08/01/2017 History of pulmonary embolism 08/01/2017 Hyponatremia 08/01/2017 Positive blood culture 08/01/2017 Acute pharyngitis 07/27/2017 Generalized weakness 07/27/2017 Nausea and vomiting 07/26/2017 Overview (09/05/2020): Overview: Overview: Added automatically from request for surgery [id number] Overview: Added automatically from request for surgery [id number] Added automatically from request for surgery [id number] Neuropathy 07/05/2017 History of breast cancer 02/06/2017 Pulmonary embolism ([facility]) 08/09/2016 Overview (09/05/2020): Last Assessment & Plan: [...] syndrome Assessment & Plan (03/18/2018 2:54 AM FILAMENT SHAPER): Chronic -Continue home ropinirole Pain of lower [...] = 0.6 oz pur e alcohol) [facility] Utilities Answer Date Recorded In the past 12 months has [email or web address] gas, oil, or water [employer] threatened to shut off services in your [...] Sexual Orientation Straight 03/18/2018 3: 01 AM FILAMENT SHAPER Last Filed Vital Signs Vital Sign Reading [...] 8.0(H) <5.7 % 10/14/2023 5:50 AM CDT [facility] Comment: ADA GUIDELINES 2010 5.7 TO 6.4% INCREASED RISK OF DIABETES > OR = 6.5% CONSISTENT WITH DIABETES ESTIMATED AVG GLUCOSE 183 mg/dL 10/14/2023 5:50 AM CDT [facility] 10/14/2023 3:40 AM CDT us Peggy Bland MD LABORATORY Final Result [facility] [address] [place] [address], [place] [phone] * LIPID PANEL (10/14/2023 3:40 AM CDT) CHOLESTEROL 164 <200 MG/DL 10/14/2023 4:31 AM CDT [facility] TRIGLYCERIDES 114 <150 MG/DL 10/14/2023 4:31 AM CDT [facility] HDL 46 >40.0 MG/DL 10/14/2023 4:31 AM CDT [facility] LDL (CALCULATED) 95 <100 MG/DL 10/14/19 4:31 AM CDT [facility] NON HDL CHOLESTEROL 118 <130 MG/DL 10/13 4:31 AM T [facility] CHOL/HDL RATIO 3.6 0.0 - 4.5 10/14/2023 4:31 AM T [facility] VLDL CALCULATION 23 5 - 55 MG/DL 10/14/2023 4:31 AM CDT [facility] LIPID INTERPRETATION 10/14/2023 4:31 AM T [facility] Comment: NIH CONCENSUS REPORT [...] MD LABORATORY Final Result [facility] [address] [place] [address], from Last 3 Months or Most Recently Relevant to Health Maintenance Insurance [facility] [place] [id number] [facility] Advance Directives * Full Code (Latest [...] 2:42 AM 03/18/2018 4:50 PM Care Teams Driver Education Instructor Relationship Specialty Start Date End Date Justen Gale MD [address] [address] PCP - General FAMILY PRACTICE 08/20/17 Meena Bansal MD [address] [facility] [address] [place] [address] Blandford Soil Tester CARDIOVASCULAR DISEASE 04/24/16
--- OUTSIDE RECORDS SUMMARY | 2024-11-12 16:41 | XMS_ITS ---
Author Organization [facility] Address [address] [place] [address] Care Team Providers Care Employee Development Specialist Name Role Phone Liu Jerez MD Unavailable Albert Corbin MD Unavailable Justen Gale MD Primary Care Provider [phone] Khris Arthur MD Unavailable [phone] Ko Melendez MD Unavailable John Paul Moyer MD Unavailable Annel Rod MD Unavailable Anali MARSHALL MD, Carlos M. Unavailable Active Problems Problem Noted Date Diagnosed Date Urinary tract infection 05/22/2024 Assessment & Plan (05/26/2024 10:08 AM MAIN GALLEY SCULLION): Presenting with urinary symptoms of right flank [...] 05/22/2024 Assessment & Plan (05/25/2024 7:52 AM MAIN GALLEY SCULLION): Hx of breast cancer c/b DVT/bilateral Pes [...] 05/22/2024 Assessment & Plan (05/22/2024 1:14 PM MAIN GALLEY SCULLION): -long-standing chronic back pain -CT L spine [...] 09/12/2021 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) 2021 residential (current) use 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 inhibitors 10/17/2019 Thyroid [...] complication, without long-term current use of insulin ([facility]) 10/23/2017 Assessment & Plan [...] 10/13/2017 Assessment & Plan (05/22/2024 12:29 PM MAIN GALLEY SCULLION): -Hx stage II, ER positive, HER2 negative [...] 08/01/2017 Assessment & Plan (05/22/2024 12:33 PM MAIN GALLEY SCULLION): -Hx LUL -Hospital provided CPAP ordered History of DVT (deep vein thrombosis) 08/01/2017 History of pulmonary embolism 08/01/2017 Generalized weakness 07/27/2017 Dyspnea 07/27/2017 Unintentional weight loss 07/27/2017 Acute cystitis without hematuria 07/27/2017 Nausea and vomiting 07/26/2017 Overview (07/28/2017): Added automatically from request for surgery [id number] Pulmonary embolism 08/09/2016 Assessment & Plan (10/23/2017 2:05 AM CDT): On Rivaroxaban Lymphedema of left upper extremity 08/09/2016 Assessment & Plan (05/25/2024 7:53 AM MAIN GALLEY SCULLION): S/p L axillary lymph node dissection 2014, [...] syndrome Assessment & Plan (05/22/2024 11:18 AM MAIN GALLEY SCULLION): -continue home Requip 5mg nightly Pain of lower extremity 03/12/2013 Overview (07/29/2016): Leg pain Essential hypertension Assessment & Plan (05/23/2024 10:42 AM MAIN GALLEY SCULLION): -Chart history of HTN but not on meds -BP elevated on admission, likely some pain contributing -Monitor closely once pain under adequate control, discussed following up with PCP for this Chronic anticoagulation Restless leg syndrome 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 Type 2 diabetes mellitus without complication Assessment & Plan (05/24/2024 1:39 PM MAIN GALLEY SCULLION): -Last Ha1c 8.4 in 2023, repeat 8.7 [...] female breast, unspecified estrogen receptor status (HCC)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) use 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 inhibitorsBone disorder [...]
--- OUTSIDE RECORDS SUMMARY | 2024-11-12 16:41 | XMS_ITS | Encounter Summary ---
Author Organization [facility] Address [address] [place] [address] Phone Care Team Providers Care Radio Equipment Installer Name Role Phone Justen Gale MD Primary Care Provider [phone] David Roberts APRN, SHEET ROCK FINISHER Unavailable [phone] Annel Rod MD Unavailable Reason for Visit * Reason Comments Medication Refill Encounter Details Date Type Department Care Team (Late st Contact Info) Description 02/07/2020 Refill [facility] [address] [place] [address] Justen Gale MD [address] [address] Medication Refill Social History Tobacco Use Types [...] Info) Description 11/13/2024 2:00 PM CDT [facility] [address] [place] [address] Angelito Alegria APRN, SHEET ROCK FINISHER [address] [address] Discharge Disposition: Discharged to home or Selfcare 11/19/2024 2:00 PM CDT Office Visit [facility] - [facility]ocrin[facility] [address] [place] [address] Annel Rod MD [address] [address] documented as of this encounter Visit Diagnoses Not on filedocumented in this encounter Additional Health Concerns Infection Onset Date Last Indicated Resolved Time COVID - 19 08/01/2024 08/01/2024 08/01/2024 3:20 PM CDT Assessment Noted Time PHQ-9 Depression Total Score: 0 09/08/19 1:00 PM CDT documented as of this encounter Care Teams Radio Equipment Installer Relationship Specialty Start Date End Date Justen Gale MD [address] [address] PCP - General Family Medicine 10/17/17 David Roberts APRN, NETTA [address] [facility] [place] [address] Nurse Practitioner Advanced Practice Nurse 01/31/22 Annel Rod MD [address] [address] Consulting Physician Endocrinology 07/01/22 documented as of this encounter
--- OUTSIDE RECORDS SUMMARY | 2024-11-12 16:41 | XMS_ITS | Encounter Summary ---
Author Organization [facility] Address [address] [place] [address] Phone Care Team Providers Care Fagoter Name Role Phone Justen Gale MD Primary Care Provider David Roberts APRN, DISTRICT GAUGER Unavailable [phone] Annel Rod MD Unavailable Encounter Details Date Type Department Care Team (Late st Contact Info) Description 06/05/2020 [facility] 1 [place] [address] Pili Elkins APRN, DISTRICT GAUGER #[address] [address] Frequency of micturition Social [...] COVID-19? No / Unsure 2020 11:37 AM CORPORATE LEGAL ASSISTANT documented as of this encounter Plan of Treatment Upcoming Encounters Date Type Department Care Team (Late st Contact Info) Description 11/13/2024 2:00 PM CDT [facility]ment [facility] 1 [place] [address] Angelito Alegria APRN, DISTRICT GAUGER #2 [facility] [address] [place] [address] Discharge Disposition: Discharged to home or Selfcare 11/19/2024 2:00 PM CDT Office Visit [facility] #2 [place] [address] Annel Rod MD #[address] [address] documented as of this encounter Procedures Procedure Name Priority Date/Time Associated Diagnosis Comments URINALYSIS REFLEX IF INDICATED BY ABNORMAL RESULTS Routine 06/05/2020 4:45 PM CORPORATE LEGAL ASSISTANT Frequency of micturition documented in this encounter Results * (ABNORMAL) URINALYSIS REFLEX IF INDICATED BY ABNORMAL RESULTS (06/05/2020 4:45 PM CORPORATE LEGAL ASSISTANT) SPECIFIC GRAVITY 1.020 1.003 - 1.030 06/05/2020 5:19 PM CORPORATE LEGAL ASSISTANT [facility] URINE PH 5.0 5.0 - 9.0 06/05/2020 5:19 PM CORPORATE LEGAL ASSISTANT [facility] WBC ESTERASE Negative Negative 06/05/2020 5:19 PM CORPORATE LEGAL ASSISTANT [facility] NITRITE Negative Negative 06/05/2020 5:19 PM CORPORATE LEGAL ASSISTANT [facility] PROTEIN, RANDOM URINE Negative Negative 06/05/2020 5:19 PM CORPORATE LEGAL ASSISTANT [facility] URINE GLUCOSE, QUAL Negative Negative 06/05/2020 5:19 PM CORPORATE LEGAL ASSISTANT [facility] URINE KETONES Negative Negative 06/05/2020 5:19 PM CORPORATE LEGAL ASSISTANT [facility] UROBILINOGEN Normal Normal mg/dL 06/05/2020 5:19 PM CORPORATE LEGAL ASSISTANT [facility] URINE BILIRUBIN Negative Negative 5:19 PM CORPORATE LEGAL ASSISTANT [facility] URINE BLOOD 25 /uL(A) Negative leandro/ul 06/05/2020 5:19 PM CORPORATE LEGAL ASSISTANT [facility] URINALYSIS COLOR Yellow 06/05/19 5:19 PM CORPORATE LEGAL ASSISTANT [facility] URINALYSIS CLARITY Clear 06/05/2020 5:19 PM CORPORATE LEGAL ASSISTANT [facility] WBC (Urine) 0-5 Negative, 0-5 /hpf 06/05/2020 5:19 PM CORPORATE LEGAL ASSISTANT [facility] URINE RBC'S 3-5(A) Negative, 0-2 /hpf 06/05/2020 5:19 PM CORPORATE LEGAL ASSISTANT [facility] EPITHELIAL CELLS Small amount /lpf 2020 5:19 PM CORPORATE LEGAL ASSISTANT [facility] BACTERIA, URINE Few(A) Negative /hpf 06/05/2020 5:19 PM CORPORATE LEGAL ASSISTANT [facility] Urine URINE SPECIMEN / Unknown Non-Phlebotomy Collection / Unknown 06/05/2020 4:45 PM CORPORATE LEGAL ASSISTANT 06/05/2020 5:00 PM CORPORATE LEGAL ASSISTANT us Pili Elkins BOX BRANDER, DISTRICT GAUGER URINE ORDERABLES Fin al Result [facility] #1 [place] [address] documented in this encounter Visit Diagnoses Diagnosis Frequency of micturition Urinary frequency documented in this encounter Additional Health Concerns Infection Onset Date Last Indicated Resolved Time COVID - 19 08/01/2024 08/01/2024 08/01/2024 3:20 PM CDT Assessment Noted Time PHQ-9 Depression Total Score: 0 09/08/19 19 1:00 PM CDT documented as of this encounter Care Teams Fagoter Relationship Specialty Start Date End Date Justen Gale MD #2 [facility] [address] [place] [address] PCP - General Family Medicine 10/17/17 David Roberts, BOX BRANDER, DISTRICT GAUGER #2 [place] [address] Nurse Practitioner Advanced Practice Nurse 01/31/22 Annel Rod MD #2 [facility] [address] [place] [address] Consulting Physician Endocrinology 07/01/22 documented as of this encounter
--- OUTSIDE RECORDS SUMMARY | 2024-11-12 16:41 | XMS_ITS | Referral Summary ---
Author Organization [facility] Address [address] [place] [address] Care Team Providers Care Cat Operator Name Role Phone Liu Jerez MD Unavailable Albert Corbin MD Unavailable Justen Gale MD Primary Care Provider Khris Arthur MD Unavailable [phone] Ko Melendez MD Unavailable John Paul Moyer MD Unavailable [phone] Annel Rod MD Unavailable Anali MARSHALL MD, [...] 05/22/2024 Assessment & Plan (05/26/2024 10:08 AM PIPE STEM SAWYER): Presenting with urinary symptoms of right flank [...] 05/22/2024 Assessment & Plan (05/25/2024 7:52 AM PIPE STEM SAWYER): Hx of breast cancer c/b DVT/bilateral Pes [...] 05/22/2024 Assessment & Plan (05/22/2024 1:14 PM PIPE STEM SAWYER): -long-standing chronic back pain -CT L spine [...] 09/12/2021 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) 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 [...] use of insulin ([facility]) 10/23/2017 Assessment & Plan (10/23/2017 [...] 10/13/2017 Assessment & Plan (05/22/2024 12:29 PM PIPE STEM SAWYER): -Hx stage II, ER positive, HER2 negative [...] 08/01/2017 Assessment & Plan (05/22/2024 12:33 PM PIPE STEM SAWYER): -Hx LUL -Hospital provided CPAP ordered History of DVT (deep vein thrombosis) 08/01/2017 History of pulmonary embolism 08/01/2017 Generalized weakness 07/27/2017 Dyspnea 07/27/2017 Unintentional weight loss 07/27/2017 Acute cystitis without hematuria 07/27/2017 Nausea and vomiting 07/26/2017 Overview (07/28/2017): Added automatically from request for surgery [id number] Pulmonary embolism 08/09/2016 Assessment & Plan (10/23/2017 2:05 AM CDT): On Rivaroxaban Lymphedema of left upper extremity 08/09/2016 Assessment & Plan (05/25/2024 7:53 AM PIPE STEM SAWYER): S/p L axillary lymph node dissection 2014, [...] syndrome Assessment & Plan (05/22/2024 11:18 AM PIPE STEM SAWYER): -continue home Requip 5mg nightly Pain of lower extremity 03/12/2013 Overview (07/29/2016): Leg pain Essential hypertension Assessment & Plan (05/23/2024 10:42 AM PIPE STEM SAWYER): -Chart history of HTN but not on meds -BP elevated on admission, likely some pain contributing -Monitor closely once pain under adequate control, discussed following up with PCP for this Chronic anticoagulation Restless leg syndrome 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 Type 2 diabetes mellitus without complication Assessment & Plan (05/24/2024 1:39 PM PIPE STEM SAWYER): -Last Ha1c 8.4 in 2023, repeat 8.7 [...] In the past 12 months has [employer], gas, oil, or water company threatened to [...] do you attend chur or mormonism services? More than 4 times per year [...] in a group home (including now)? No 08/15/2023 Housing Stability [...] in a group home (including now)? No 05/24/2024 Personal Safety Answer Date Recorded Have you ever been in or are you currently in a harmful physical or emotional relationship or is someone making you feel afraid or unsafe? Denies 07/01/2024 Comments No Sex and Gender Information Value Date Recorded Sex Assigned at Not on file Legal Sex Female 12:24 AM PIPE STEM SAWYER Gender Identity Not on file Sexual [...] CDT HEMOGLOBIN A1C STAT 05/21/2024 4:20 PM PIPE STEM SAWYER LIPID PANEL STAT 05/21/2024 4:20 PM PIPE STEM SAWYER DEXA AXIAL SKELETON BONE DENSITY 1 OR [...] was last reviewed 2021. Testing performed by: [facility], [address] [place] [address]., [id number] Blood 07/01/2024 2:02 PM CDT 07/01/2024 2:12 PM CDT us Ilana Stevens MD LAB BLOOD ORDERABLES F inal Result [facility]ARY JANE [address] [facility] Department [place] [address] * (ABNORMAL) Hemoglobin A1c (05/21/2024 4:20 PM PIPE STEM SAWYER) Hgb A1C 8.7(H) 4.0 - 5.6 % [...] a fasting glucose. Blood 05/21/2024 4:20 PM PIPE STEM SAWYER 05/21/2024 4:55 PM PIPE STEM SAWYER us Leo Henry MD LAB BLOOD ORDERABLES Final Result [facility] [place] [address] * (ABNORMAL) Lipid panel (05/21/2024 4:20 PM PIPE STEM SAWYER) Cholesterol 205(H) 30 - 199 mg/dL Comment: [...] revised on 2017. Triglycerides 92 <=149 mg/dL [facility] Comment: Interpretive Data Ages < [...] 2023. Non-HDL Cholesterol 150 mg/dL [facility] Comment: Interpretive [...] last revised on 2017. Chol/HDL ratio 4 [facility] Blood 05/21/2024 4:20 PM PIPE STEM SAWYER 05/21/2024 4:50 PM PIPE STEM SAWYER Narrative [facility] - 05/22/2024 4:17 PM PIPE STEM SAWYER Reflex us Leo Henry MD LAB BLOOD ORDERABLES Final Result [facility] Department [place] [address] * Dexa Axial Skeleton Bone Density 1 or 2 Site (08/02/2022 10:53 AM CDT) Anatomical Region Laterality Modality Body N/A Radiographic Lizeth ging Narrative 08/02/2022 3:34 PM CDT Patient Name: Karly Marques Date of : 1955 Date of scan: 08/02/2022 Bone mineral density was performed on a HoloFantoo Discovery Densitometer. Based on machine cross-calibration and [...] by the International Society of Clinical Densitometry. [id number] Khris Arthur MD [facility] DXA PROCEDURES F [...] with it. [facility]# Date Time Exam [id number] Aug 19, 2016 14:27:00 [facility] 55416 Diag Mamm, inc CAD, unilat L Technologist(s): Carla Harris; ; [id number] Aug 19, 2016 15:39:00 [facility] [id number] Breast US unilateral, ltd L ACC# Date Time Exam [id number] Aug 19, 2016 14:27:00 [facility] 20029 Diag Mamm, inc CAD, unilat L Technologist(s): Carla Harris; ; [id number] Aug 19, 2016 15:39:00 [facility] 27569 Breast US unilateral, ltd L EXAMINATION: LEFT [...] SARABIA M.D. on Aug 19 2016 4:20P [id number] Procedure Note Miscellaneous, Not In File / Provider, Historical, MD - 09/17/2016 ANTHONY SARABIA M.D. JUDY RINCON M.D. FINAL REPORT The radiology attending physician has personally reviewed this study, and has reviewed and/or edited this written report and agrees with it. [facility]# Date Time Exam [id number] Aug 19, 2016 14:27:00 [facility] 34223 Diag Mamm, inc CAD, unilat L Technologist(s): Carla Harris; ; [id number] Aug 19, 2016 15:39:00 [facility] 70215 Breast US unilateral, ltd L ACC# Date Time Exam [id number] Aug 19, 2016 14:27:00 [facility] 22235 Diag Mamm, inc CAD, unilat L Technologist(s): Carla Harris; ; [id number] Aug 19, 2016 15:39:00 C [id number] Breast US unilateral, ltd L EXAMINATION: LEFT [...] SARABIA M.D. on Aug 19 2016 4:20P [id number] us Not In File Miscellaneous IMG MAMMO PROCEDURES F inal Result from Last 3 Months or Most Recently Relevant to Health Maintenance Insurance [facility]ICARE ADVANTAGE [facility] Address: [address] [address] [place] [address] [employer] MEDICARE ADVANTAGE Advance Directives For more information, please contact: [phone] Documents on File Type Date Recorded Patient Synoptic Meteorologist Expl anation ADVANCE DIRECTIVE 12/23/2021 2:49 PM Power of Distance Education Teacher-Medical ADVANCE DIRECTIVE 12/23/2021 2:49 PM Living Will [...] First Alternate Health Care Agent Care Teams Cat Operator Relationship Specialty Start Date End Date Justen Gale MD 2 [facility] [address] [place] [address] PCP - General 10/09/17 Liu Jerez MD Consulting Physician Gastroenterology 07/28/17 [place] [address] [facility] [address] [place] [address] Consulting Physician Pulmonary Disease 08/03/17 Khris Arthur MD [address] [facility] [address] [place] [address] Medical Oncologist/Skilled Nursing Facilities Professional Medical Oncology 10/23/17 [place] [address] [facility] [address] [place] [address] Surgeon Orthopedic Surgery 10/23/17 [place] [address] [facility] [address] [place] [address] Consulting Physician Pain Management 10/23/17 [place] [address] [facility] [address] [place] [address] Referring Physician General Surgery 01/26/18 [place] [address] [facility] [address] [place] [address] Consulting Physician Neurology 01/26/18
--- OUTSIDE RECORDS SUMMARY | 2024-11-12 16:41 | XMS_ITS | Encounter Summary ---
Author Organization [facility] Address [address] [place] [address] Phone Care Team Providers Care Obiee Report Developer Name Role Phone Justen Gale MD Primary Care Provider [phone] David Roberts APRN, PARK ACTIVITIES COORDINATOR Unavailable Annel Rod MD Unavailable Reason for Visit * Reason Comments Medication Refill Encounter Details Date Type Department Care Team (Late st Contact Info) Description 02/17/2021 Refill [facility] #2 [place] [phone] Justen Gale MD #[address] [address] Medication Refill Social History Tobacco Use Types [...] call in * Telephone Encounter - Fabiola oMrse RN - 02/18/2021 8:41 AM CDT Medication [...] Mcgee 06/05/20 Office Visit Pili Elkins APRN, PARK ACTIVITIES COORDINATOR [facility] Showing recent visits within past 365 days and meeting all other requirements Future Appointments Date Type Provider Dept 03/02/21 Appointment Vince Hermosillo MD [facility] Showing future appointments within next 90 days and meeting all other requirements documented in this encounter Plan of Treatment Upcoming Encounters Date Type Department Care Team (Late st Contact Info) Description 11/13/2024 2:00 PM CDT [facility]ment [facility] 1 [place] [address] Angelito Alegria APRN, PARK ACTIVITIES COORDINATOR #[address] [address] Discharge Disposition: Discharged to home or Selfcare 11/19/2024 2:00 PM CDT Office Visit [facility] - Endocrinology [facility] #2 [place] [address] Annel Rod MD #2 [facility] [address] [place] [address] documented as of this encounter Visit Diagnoses Not on filedocumented in this encounter Additional Health Concerns Infection Onset Date Last Indicated Resolved Time COVID - 19 08/01/2024 08/01/2024 08/01/2024 3:20 PM CDT Assessment Noted Time PHQ-9 Depression Total Score: 0 07/21/19 3:00 PM CDT documented as of this encounter Care Teams Obiee Report Developer Relationship Specialty Start Date End Date Justen Gale MD #[address] [address] PCP - General Family Medicine 10/17/17 David Roberts APRN, PARK ACTIVITIES COORDINATOR #2 [place] [address] Nurse Practitioner Advanced Practice Nurse 01/31/22 Annel Rod MD #[address] [address] Consulting Physician Endocrinology 07/01/22 documented as of this encounter
--- OUTSIDE RECORDS SUMMARY | 2024-11-12 16:41 | XMS_ITS | Encounter Summary ---
Author Organization [facility] Address [address] [place] [address] Phone Care Team Providers Care Camp Recreation Specialist Name Role Phone Justen Gale MD Primary Care Provider David Roberts APRN, SFDC ARCHITECT Unavailable Annel Rod MD Unavailable Reason for Visit * Reason Onset Date Comments Medication Refill 08/06/2020 Encounter Details Date Type Department Care Team (Late st Contact Info) Description 08/06/2020 Refill [facility]2 [facility] [place] [address] Justen Gale MD #[address] [address] Medication Refill Social History Tobacco Use Types [...] Outpatient Visits 2 weeks ago [facility] Pili Mueller APN, SFDC ARCHITECT 2 months ago Increased urinary frequency [facility] Pili Mueller APN, SFDC ARCHITECT 5 months ago Urinary frequency [facility] Pili Mueller APN, SFDC ARCHITECT 8 months ago Type 2 diabetes mellitus with diabetic polyneuropathy, with long- term current use of insulin (HCC) [facility] Pili Mueller APN, SFDC ARCHITECT 9 months ago [facility] Justen Urbano MD Upcoming Appointments Future Appointments In 6 days Pili Elkins APN, SFDC ARCHITECT [facility] SENIOR CHEMIST - Recent and Past Visits Recent Visits Date Type Provider Dept 07/20/20 Office Visit Pili Elkins APN, SFDC ARCHITECT [facility] 06/05/20 Office Visit Pili Elkins APN, NETTA [facility] 02/17/20 Office Visit Pili Elkins APN, NETTA [facility] 12/03/19 Office Visit Pili Elkins APN, NETTA [facility] 11/05/19 Telemedicine Justen Gale MD [facility] 07/25/19 Telemedicine Justen Gale MD [facility] Showing recent visits within past 460 days with a meds authorizing provider and meeting all other requirements Future Appointments Date Type Provider Dept 08/12/20 Appointment Pili Elkins APN, CNP [facility] Showing future appointments within next 90 days [...] [facility] 1 [place] [address] Angelito Alegria APRN, NETTA #[address] [address] Discharge Disposition: Discharged to home or Selfcare 11/19/2024 2:00 PM CDT Office Visit [facility] - [place] #2 [place] [address] Annel Rod MD #[address] [address] documented as of this encounter Visit Diagnoses Not on filedocumented in this encounter Additional Health Concerns Infection Onset Date Last Indicated Resolved Time COVID - 19 08/01/2024 08/01/2024 08/01/2024 3:20 PM CDT Assessment Noted Time PHQ-9 Depression Total Score: 0 07/21/19 3:00 PM CDT documented as of this encounter Care Teams Camp Recreation Specialist Relationship Specialty Start Date End Date Justen Gale MD #[address] [address] PCP - General Family Medicine 10/17/17 David Roberts APRN, SFDC ARCHITECT #2 [place] [address] Nurse Practitioner Advanced Practice Nurse 01/31/22 Annel Rod MD #[address] [address] Consulting Physician Endocrinology 07/01/22 documented as of this encounter
--- OUTSIDE RECORDS SUMMARY | 2024-11-12 16:41 | XMS_ITS | Encounter Summary ---
Author Organization [facility] Address [address] [place] [address] Phone Care Team Providers Care Embossing Calender Operator Name Role Phone Justen Gale MD Primary Care Provider David Roberts APRN, CHILD NEUROLOGIST Unavailable Annel Rod MD Unavailable Reason for Visit * Reason Onset Date Comments Sore Throat 06/29/2020 Encounter Details Date Type Department Care Team (Late st Contact Info) Description 06/29/2020 Telephone [facility] #[address] [place] [address] Justen Gale MD #[address] [address] Sore Throat Social History Tobacco Use Types [...] COVID-19? No / Unsure 06/29/2020 8:43 AM TOP PRECIPITATOR OPERATOR documented as of this encounter Miscellaneous Notes * Telephone Encounter - Gail Lucreo RN - 06/29/2020 3:53 PM CST Attempted to call mailbox is full. Pt does not need testing PRECIPITATOR OPERATOR * Telephone Encounter - Vince Hermosillo MD - 06/29/2020 3:13 PM CST No covid testing needed. If the er thought that it was warranted then they would have done this. PRECIPITATOR OPERATOR * Telephone Encounter - Marlys Sorensen RN - 06/29/2020 8:36 AM CST Patient calling. Patient is calling to schedule Hospital/ED/Prompt-Care follow up appointment. Hospital/ED/Prompt-[facility] Site: [facility] ED Records Requested: Yes Reason for [...] f/up and yearly PAP appointments? Please advise. PRECIPITATOR OPERATOR documented in this encounter Plan of Treatment Upcoming Encounters Date Type Department Care Team (Late st Contact Info) Description 11/13/2024 2:00 PM CDT [facility]ointment [facility] Cardiology Services 1 [place] [address] Angelito Alegria APRN, CHILD NEUROLOGIST #2 [facility] [address] [place] [address] Discharge Disposition: Discharged to home or Selfcare 11/19/2024 2:00 PM CDT Office Visit [facility] End[facility]ology - [place] #2 [place] [address] Annel Rod MD #2 [facility] [address] [place] [address] documented as of this encounter Visit Diagnoses Not on filedocumented in this encounter Additional Health Concerns Infection Onset Date Last Indicated Resolved Time COVID - 19 08/01/2024 08/01/2024 08/01/2024 3:20 PM CDT Assessment Noted Time PHQ-9 Depression Total Score: 0 09/08/19 19 1:00 PM CDT documented as of this encounter Care Teams Embossing Calender Operator Relationship Specialty Start Date End Date Justen Gale MD #2 [facility] [address] [place] [address] PCP - General Family Medicine 10/17/17 David Roberts APRN, CHILD NEUROLOGIST #2 [place] [address] Nurse Practitioner Advanced Practice Nurse 01/31/22 Annel Rod MD #2 [facility] [address] [place] [address] Consulting Physician Endocrinology 07/01/22 documented as of this encounter
--- OUTSIDE RECORDS SUMMARY | 2024-11-12 16:41 | XMS_ITS | Clinical Summary ---
Author Organization [facility] Address [address] [place] [address] Care Team Providers Care School Cook Name Role Phone Justen Gale MD Primary Care Provider [phone] Source Comments [facility],non-[facility] health Affiliates and Associated Physician Practices is amultiple site organization consisting of ambulatory clinics and hospital sitesin [place], [place], [place] and [place]. This disclosure is being madepursuant to the Care Everywhere program and may not contain all information available regarding this patient. Last updated 18.[facility] [employer] Allergies Active Allergy Reactions Criticality Noted Date [...] Gluc Sensor (FreeStyle Eileen 2 Sensor Systm) [facility] APPLY 1 SENSOR AND WEAR FOR 14 [...] Team Description 08/14/2024 Results [place] [address] oJsué Bernal PA-C 08/13/2024 [place] [address] Jordana Abdul MD ER UC Follow-up from [...] medical care, and heating? Somewhat hard 05/16/2023 [facility] [place] [facility] - Occupational [...] slept in a alf (including now)? No 05/16/2023 Comments No Sex and Gender Information Value Date Recorded Sex Assigned at Not on file Legal Sex Female 6:53 PM WORKERS COMPENSATION ANALYST Gender Identity Not on file Sexual [...] this topic Medical Devices Implanted Type Area Primary Grade Teacher Device Identifier Shelf Expiration Date Model / Serial / Lot Lead Nrstm 60cm Penta 3mm Pdl 16 Chnl Implanted:Qt y: 1 on 09/16/2021 by Maxi Gregg MD at [facility] Right: Spine Thoracic Advanced Neuromodulation Systems [id number] / / Description:CAMILO Slnt Dura Duraseal Pg Trilysine Amine 5 Implanted:Qt y: 1 on 09/16/2021 by Maxi Gregg MD at [facility] Right: Spine Thoracic Integra [employer] David [id number] / / Description:CAMILO Proclaim Plus 5 Implanted:Qt y: 1 on 02/16/2023 by Maxi Gregg MD at [facility] Left: Back Cardenas Spine [id number] 11/07/2024 3670 / [id number] / Explanted Type Area Primary Grade Teacher Device Identifier Shelf Expiration Date Model / Serial / Lot Gntr Nrstm [id number] Proclaim Elt Implanted:Qty: 1 on 09/16/2021 by Maxi Gregg MD at [facility] Explanted:Qty: 1 on 10/30/2021 by Maxi Gregg MD at [facility] Right: Spine Thoracic St [...] - 145 mmol/L 08/09/2024 2:09 PM CDT [facility] Potassium 3.9 3.5 - 5.1 mmol/L 08/09/2024 2:09 PM CDT [facility] Chloride 103 98 - 107 mmol/L 08/09/2024 2:09 PM CDT [facility] CO2 24 22 - 29 mmol/L 08/09/2024 2:09 PM CDT [facility] Calcium 9.4 8.4 - 10.4 mg/dL 08/09/2024 2:09 PM CDT [facility] Anion Gap 9 6 - 16 mmol/L 08/09/2024 2:09 PM CDT [facility] BUN 19 7 - 26 mg/dL 08/09/2024 2:09 PM CDT [facility] Creatinine 0.82 0.57 - 1.11 mg/dL 08/09/2024 2:09 PM CDT [facility] Alkaline Phosphatase 68 40 - 150 U/L 08/09/2024 2:09 PM CDT [facility] ALT 22 6 - 57 U/L 08/09/2024 2:09 PM CDT [facility] AST 23 10 - 48 U/L 08/09/2024 2:09 PM CDT [facility] Protein Total 8.0 6.4 - 8.3 gm/dL 08/09/2024 2:09 PM CDT [facility] Albumin 3.3(L) 3.4 - 5.0 gm/dL 08/09/2024 2:09 PM CDT [facility] Bilirubin Total 0.9 0.2 - 1.2 mg/dL 08/09/2024 2:09 PM CDT [facility] eGFR by CKD-EPI 78(L) >=90 mL/min/1.7 3 m2 08/09/2024 2:09 PM CDT [facility] Blood BLOOD SPECIMEN / Unknown Venipuncture / Unknown 08/09/2024 1:40 PM CDT 08/09/2024 1:43 PM CDT Josué Bernal PA-C LAB - CHEMISTRY ORDERABLE S Final Result Performing Organization Address [facility] Co de Phone Number [facility] [address] [place] [address] * HEPATITIS C AB SCREEN RFLX NAAT QUANT (02/21/2023 6:30 PM CDT) Pathologist [facility] Hepatitis C Antibody Non-react hugh Non-reac tive 02/21/2023 7:32 PM CDT [facility] Comment:Hepatitis C Antibody screen indicates no [...] ORDERABLES Fi nal Result Performing Organization Address City/[facility] Co de Phone Number [facility] [address] [place] [phone] [phone] * (ABNORMAL) HEMOGLOBIN A1C (12/25/2022 3:56 AM CDT) Hemoglobin A1c 8.6(H) <=5.6 % 12/25/2022 2:47 PM CDT [facility] Estimated Average Glucose 200 mg/dL 12/25/2022 2:47 PM CDT [facility] Comment: HbA1c Interpretation: Normal : < 5.7% Pre-diabetes: 5.7-6.4% Diabetes: Equal to or greater than 6.5% Test results diagnostic of diabetes should be repeated for confirmation. Treatment target values recommended by ADA and other clinical organizations should be used to evaluate metabolic control in patients. Reference: [place] [employer], Standards of Care in Diabetes [...] LAB - CHEMISTRY ORDERA BLES Final Result [place] [id number] [place] [address], [facility] [phone] from Last 3 Months or Most Recently Relevant to Health Maintenance Insurance [facility] MEDICARE ADV [facility]NA[facility]ED MEDICARE ADV Advance Directives * Full [...] 3:37 AM 03/23/2023 7:14 PM Care Teams School Cook Relationship Specialty Start Date End Date Justen Gale MD PCP - General 07/05/21
--- OUTSIDE RECORDS SUMMARY | 2024-11-12 16:41 | XMS_ITS | Encounter Summary ---
Author Organization [facility] Address [address] [place] [address] Phone Care Team Providers Care Reservation Manager Name Role Phone Justen Gale MD Primary Care Provider David Roberts APRN, EDITOR SCHOOL PHOTOGRAPH Unavailable Annel Rod MD Unavailable Reason for Visit * Reason Comments Medication Refill Encounter Details Date Type Department Care Team (Late st Contact Info) Description 03/13/2021 Refill [facility] [address] [place] [address] Justen Gale MD #[address] [address] Medication Refill Social History Tobacco [...] No / Unsure 03/02/2021 5:05 PM DIRECTOR CLOUD TRANSFORMATION documented as of this encounter Plan of Treatment Upcoming Encounters Date Type Department Care Team (Late st Contact Info) Description 11/13/2024 2:00 PM CDT Appointment [facility] Cardiology Services [address] [place] [address] Angelito Alegria, PAN DEVULCANIZER, EDITOR SCHOOL PHOTOGRAPH #2 [facility] [address] [place] [address] Discharge Disposition: Discharged to home or Selfcare 11/19/2024 2:00 PM CDT Office Visit [facility] #2 [place] [address] Annel Rod MD #2 [facility] [address] [place] [address] documented as of this encounter Visit Diagnoses Not on filedocumented in this encounter Additional Health Concerns Infection Onset Date Last Indicated Resolved Time COVID - 19 08/01/2024 08/01/2024 08/01/2024 3:20 PM CDT Assessment Noted Time PHQ-9 Depression Total Score: 0 07/21/19 21 3:00 PM CDT documented as of this encounter Care Teams Reservation Manager Relationship Specialty Start Date End Date Justen Gale MD #[address] [address] PCP - General Family Medicine 10/17/17 David Roberts APRN, EDITOR SCHOOL PHOTOGRAPH #2 [place] [address] Nurse Practitioner Advanced Practice Nurse 01/31/22 Annel Rod MD #2 [place] [id number] Consulting Physician Endocrinology 07/01/22 documented as of this encounter
--- OUTSIDE RECORDS SUMMARY | 2024-11-12 16:42 | XMS_ITS | Encounter Summary ---
Author Organization [facility] Address [address] [place] [address] Phone Care Team Providers Care Supervisor Cytogenetic Laboratory Name Role Phone Justen Gale MD Primary Care Provider David Roberts APRN, TRACK VEHICLE REPAIRER Unavailable Annel Rod MD Unavailable Reason for Visit * Reason Onset Date Comments Advice Only 11/21/2023 Encounter Details Date Type Department Care Team (Late st Contact Info) Description 11/21/2023 Telephone [facility] [address] [place] [address] Justen Gale MD #[address] [address] Advice Only Social History Tobacco Use Types [...] 11/21/2023 3:17 PM CDT RFC: Alejandra from [facility] is calling to state that patient is [...] [facility] Cardiology Services [address] [place] [address] Angelito Alegria, WIND TURBINE ERECTOR, TRACK VEHICLE REPAIRER #2 [facility] [address] [place] [address] Discharge Disposition: Discharged to home or Selfcare 11/19/2024 2:00 PM CDT Office Visit [facility] - [place] #2 [place] [address] Annel Rod MD #2 [facility] [address] [place] [address] documented as of this encounter Visit Diagnoses Not on filedocumented in this encounter Additional Health Concerns Infection Onset Date Last Indicated Resolved Time COVID - 19 08/01/2024 08/01/2024 08/01/2024 3:20 PM CDT Assessment Noted Time PHQ-9 Depression Total Score: 8 01/18/20 2:24 PM CDT documented as of this encounter Care Teams Supervisor Cytogenetic Laboratory Relationship Specialty Start Date End Date Justen Gale MD #2 [facility] [address] [place] [address] PCP - General Family Medicine 10/17/17 David Roberts APRN, NETTA #2 [place] [address] Nurse Practitioner Advanced Practice Nurse 01/31/22 Annel Rod MD #2 [facility] [address] [place] [address] Consulting Physician Endocrinology 07/01/22 documented as of this encounter
--- OUTSIDE RECORDS SUMMARY | 2024-11-12 16:42 | XMS_ITS | Encounter Summary ---
Author Organization [facility] Address [address] [place] [address] Phone Care Team Providers Care Human Resources Technician Name Role Phone Lavonne Hathaway MD Primary Care Provider + [phone] Liu Jerez MD Unavailable [phone] Albert Corbin MD Unavailable [phone] Justen Gale MD Primary Care Provider [phone] Lavonne Hathaway MD Primary Care Provider + [phone] Justen Gale MD Primary Care Provider + [phone] Khris Arthur MD Unavailable + [phone] Ko Melendez MD Unavailable [phone] John Paul Moyer MD Unavailable [phone] Annel Rod MD Unavailable Anali MARSHALL MD, Carlos M. Unavailable +[phone] Encounter Details Date Type Department Care Team ([facility] Contact Info) Description 05/15/2017 Orders Only [facility] Scanning, Provider Social History Tobacco Use Types Packs/Day Years Used Date Smoking Tobacco: Former Alcohol Use Standard Drinks/Week Comments No 0 (1 standard drink = 0.6 oz pur e alcohol) Comments Unknown Sex and Gender Information Value Date Recorded Sex Assigned at Not on file Legal Sex Female 12:24 AM RECRUITMENT SPECIALIST Gender Identity Not on file Sexual [...] COVID: Recovered 02/10/2022 02/10/2022 06/10/2022 3:05 AM RECRUITMENT SPECIALIST Exposure, COVID-19 Comment:Added automatically based on COVID19 lab answers indicating exposure risk 02/11/2022 02/11/2022 02/15/2022 9:06 AM C DT COVID: Suspected 05/14/2022 05/14/2022 05/14/2022 10:41 AM RECRUITMENT SPECIALIST COVID: Suspected 06/07/2022 06/07/2022 06/07/2022 12:28 PM RECRUITMENT SPECIALIST COVID: Suspected 06/21/2022 06/21/2022 06/21/2022 2:12 AM RECRUITMENT SPECIALIST COVID: Suspected 10/05/2022 10/05/2022 10/05/2022 7:40 PM CDT COVID: Suspected 01/04/2024 01/04/2024 01/04/2024 10:30 PM CDT COVID: Suspected 02/14/2024 02/14/2024 02/15/2024 12:36 AM CDT COVID: Suspected 07/01/2024 07/01/2024 07/01/2024 2:53 PM CDT COVID: Suspected 07/01/2024 07/01/2024 07/02/2024 3:05 AM CDT documented as of this encounter Care Teams Human Resources Technician Relationship Specialty Start Date End Date Lavonne Hathaway MD [address] [place] [address] [place] [address] PCP - General 08/16/16 08/17/17 Justen Gale MD [address] [facility] [address] [address] PCP - General 08/18/17 08/22/17 Lavonne Hathaway MD [address] [place] [address] [place] [address] PCP - General Family Medicine 08/23/17 10/08/17 Justen Gale MD 2 [facility] [address] [address] PCP - General 10/09/17 Liu Jerez MD [address] [place] [address] [place] [address] Consulting Physician Gastroenterology 07/28/17 [place] [address] [facility] [address] [place] [address] Consulting Physician Pulmonary Disease 08/03/17 Khris Arthur MD [address] [facility] [address] [place] [address] Medical Oncologist/Personal Injury Legal Assistant Medical Oncology 10/23/17 [place] [address] [facility] [address] [place] [address] Surgeon Orthopedic Surgery 10/23/17 [place] [address] [facility] [address] [place] [address] Consulting Physician Pain Management 10/23/17 [place] [address] [facility] [address] [place] [address] Referring Physician General Surgery 01/26/18 [place] [address] [facility] [address] [place] [address] Consulting Physician Neurology 01/26/18 documented as of this encounter
--- OUTSIDE RECORDS SUMMARY | 2024-11-12 16:42 | XMS_ITS | Encounter Summary ---
Author Organization [facility] Address [address] [place] [address] Phone Care Team Providers Care Paper Cone Maker Name Role Phone Justen Gale MD Primary Care Provider David Roberts APRN, SENIOR RD ENGINEER Unavailable Annel Rod MD Unavailable Reason for Visit * Reason Comments Medication Refill Encounter Details Date Type Department Care Team (Late st Contact Info) Description 03/02/2023 Refill [facility] #2 [place] [id number] Justen Gale MD #[address] [address] Medication Refill Social History Tobacco Use Types [...] Tamika Villarreal RN - 03/02/2023 8:51 AM TYPISTS SUPERVISOR Medication failed the protocol, provider to [...] Visit Catrina Quiñonez MD [facility] 09/16/22 Office Visit Pili [facility]kins APRN, CNP [facility] 07/05/22 Office Visit Pili Elkins APRN, CNP [facility] 05/02/22 Office Visit Justen Gale MD [facility] 03/03/22 Office Visit Pili Elkins APRN, NETTA [facility] Showing recent visits within past 365 days and meeting all other requirements Future Appointments No visits were found meeting these conditions. Showing future appointments within next 90 days and meeting all other requirements STS SUPERVISOR documented in this encounter Plan of Treatment Upcoming Encounters Date Type Department Care Team (Late st Contact Info) Description 11/13/2024 2:00 PM CDT [facility] [address] [place] [address] Angelito Alegria APRN, SENIOR RD ENGINEER #[address] [address] Discharge Disposition: Discharged to home or Selfcare 11/19/2024 2:00 PM CDT Office Visit [facility] - Endocrinology - [place] #[address] [place] [address] Annel Rod MD #[address] [address] documented as of this encounter Visit Diagnoses Not on filedocumented in this encounter Additional Health Concerns Infection Onset Date Last Indicated Resolved Time COVID - 19 08/01/2024 08/01/2024 08/01/2024 3:20 PM CDT Assessment Noted Time PHQ-9 Depression Total Score: 8 01/18/20 2:24 PM CDT documented as of this encounter Care Teams Paper Cone Maker Relationship Specialty Start Date End Date Justen Gale MD #[address] [address] PCP - General Family Medicine 10/17/17 David Roberts, TECHNICAL MARKETING ENGINEER, SENIOR RD ENGINEER #2 [place] [address] Nurse Practitioner Advanced Practice Nurse 01/31/22 Annel Rod MD #[address] [address] Consulting Physician Endocrinology 07/01/22 documented as of this encounter
--- OUTSIDE RECORDS SUMMARY | 2024-11-12 16:42 | XMS_ITS | Encounter Summary ---
Author Organization [facility] Address [address] [place] [address] Phone Care Team Providers Care Oil Well Services Supervisor Name Role Phone Justen Gale MD Primary Care Provider [phone] David Roberts APRN, SPICE BLENDER Unavailable Annel Rod MD Unavailable Reason for Visit * Reason Comments Medication Refill Encounter Details Date Type Department Care Team (Late st Contact Info) Description 02/07/2023 Refill [facility] Family Medicine [facility] #2 [place] [address] Catrina Quiñonez MD #2 [place] [address] Medication Refill Social History Tobacco Use Types [...] 09/16/22 Office Visit Pili Elkins APRN, CNP [facility] [place] 07/05/22 Office Visit Pili Elkins APRN, CNP [facility] 05/02/22 Office Visit Justen Gale MD [facility] [place] 03/03/22 Office Visit Pili Elkins APRN, NETTA [facility] [place] Showing recent visits within past 365 days and meeting all other requirements Future Appointments No visits were found meeting these conditions. Showing future appointments within next 90 days and meeting all other requirements documented in this encounter Plan of Treatment Upcoming Encounters Date Type Department Care Team (Late st Contact Info) Description 11/13/2024 2:00 PM CDT Appointment [facility] Cardiology Services 1 [place] [address] Angelito Alegria APRN, SPICE BLENDER #[address] [address] Discharge Disposition: Discharged to home or Selfcare 11/19/2024 2:00 PM CDT Office Visit [facility] Endocrin[facility] #2 [place] [address] Annel Rod MD #[address] [address] documented as of this encounter Visit Diagnoses Not on filedocumented in this encounter Additional Health Concerns Infection Onset Date Last Indicated Resolved Time COVID - 19 08/01/2024 08/01/2024 08/01/2024 3:20 PM CDT Assessment Noted Time PHQ-9 Depression Total Score: 8 01/18/20 2:24 PM CDT documented as of this encounter Care Teams Oil Well Services Supervisor Relationship Specialty Start Date End Date Justen Gale MD #[address] [address] PCP - General Family Medicine 10/17/17 David Roberts APRN, SPICE BLENDER #2 [place] [address] Nurse Practitioner Advanced Practice Nurse 01/31/22 Annel Rod MD #[address] [address] Consulting Physician Endocrinology 07/01/22 documented as of this encounter
--- OUTSIDE RECORDS SUMMARY | 2024-11-12 16:42 | XMS_ITS | Encounter Summary ---
Author Organization [facility] Address [address] [place] [address] Phone Care Team Providers Care Back Sizer Name Role Phone Justen Gale MD Primary Care Provider [phone] David Roberts APRN, ASSOCIATE DEAN OF WOMEN Unavailable Annel Rod MD Unavailable Reason for Visit * Reason Comments Medication Refill Encounter Details Date Type Department Care Team (Late st Contact Info) Description 09/30/2023 Refill [facility] Endocr[facility]ology - [place] #2 [place] [address] Annel Rod MD #[address] [address] Medication Refill Social History Tobacco [...] 11/13/2024 2:00 PM CDT Appointment [facility] Cardiology Services 1 [place] [address] Angelito Alegria APRN, ASSOCIATE DEAN OF WOMEN #[address] [address] Discharge Disposition: Discharged to home or Selfcare 11/19/2024 2:00 PM CDT Office Visit [facility] #2 [place] [address] Annel Rod MD #[address] [address] documented as of this encounter Visit Diagnoses Not on filedocumented in this encounter Additional Health Concerns Infection Onset Date Last Indicated Resolved Time COVID - 19 08/01/2024 08/01/2024 08/01/2024 3:20 PM CDT Assessment Noted Time PHQ-9 Depression Total Score: 8 01/18/20 2:24 PM CDT documented as of this encounter Care Teams Back Sizer Relationship Specialty Start Date End Date Justen Gale MD #[address] [place] [address] PCP - General Family Medicine 10/17/17 David Roberts APRN, ASSOCIATE DEAN OF WOMEN #2 [place] [address] Nurse Practitioner Advanced Practice Nurse 01/31/22 Annel Rod MD #[address] [address] Consulting Physician Endocrinology 07/01/22 documented as of this encounter
--- OUTSIDE RECORDS SUMMARY | 2024-11-12 16:42 | XMS_ITS | Encounter Summary ---
Author Organization [facility] Address [address] [place] [address] Phone Care Team Providers Care Application Support Consultant Name Role Phone Justen Gale MD Primary Care Provider David Roberts APRN, SENIOR INFRASTRUCTURE ENGINEER Unavailable [phone] Annel Rod MD Unavailable Reason for Visit * Reason Onset Date Comments Advice Only 08/19/2024 Follow-up 08/19/2024 Encounter Details Date Type Department Care Team (Late st Contact Info) Description 08/19/2024 Telephone [facility] - [facility] #2 [place] [address] Justen Gale MD [address] [address] Advice Only; Follow-up Social History Tobacco Use Types Packs/Day Years Used Date Smoking Tobacco: Never Smokeless Tobacco: Never Alcohol Use Standard Drinks/Week Comments No 0 (1 standard drink = 0.6 oz pur e alcohol) [facility] Utilities Answer Date Recorded In [...] you attend chur ch or mormonism services? More than 4 times [...] Total Score - Questions 1-9 0 07/23 [facility] - Occupational Stress Questionnaire Answer Date [...] visit * Telephone Encounter - Angelito Alegria, DENTAL ASSISTING INSTRUCTOR, SENIOR INFRASTRUCTURE ENGINEER - 08/19/2024 9:04 AM CDT Forwarding * Telephone Encounter - Isaura Weiss RN - 08/19/2024 8:37 AM CDT Situation: Strep throat follow up Background: Patient contacting PCP office. Patient was seen in ED on 08/09 and 08/12 in [place] (records in chart). Diagnosed with strep. [...] CDT Symptom: Sore Throat Outcome: Transfer to toolroom checker queue Reason: Caller denied all higher acuity questions The caller accepted this outcome. Caller Denied: * Struggling for each breath (severe trouble breathing) * Can't swallow saliva (drooling) documented in this encounter Plan of Treatment Upcoming Encounters Date Type Department Care Team (Late st Contact Info) Description 11/13/2024 2:00 PM CDT [facility] 1 [place] [address] Angelito Alegria APRN, SENIOR INFRASTRUCTURE ENGINEER #[address] [address] Discharge Disposition: Discharged to home or Selfcare 11/19/2024 2:00 PM CDT Office Visit [facility] Endocr[facility]ology - [place] #[address] [place] [address] Annel Rod MD #2 [facility] [address] [place] [address] documented as of this encounter Visit Diagnoses Not on filedocumented in this encounter Additional Health Concerns Assessment Noted Time PHQ-9 Depression Total Score: 0 08/02/19 25 1:09 PM CDT documented as of this encounter Care Teams Application Support Consultant Relationship Specialty Start Date End Date Justen Gale MD #2 [facility] [address] [place] [address] PCP - General Family Medicine 10/17/17 David Roberts, DENTAL ASSISTING INSTRUCTOR, SENIOR INFRASTRUCTURE ENGINEER #2 [place] [address] Nurse Practitioner Advanced Practice Nurse 01/31/22 Annel Rod MD #[address] [address] Consulting Physician Endocrinology 07/01/22 documented as of this encounter
--- OUTSIDE RECORDS SUMMARY | 2024-11-12 16:42 | XMS_ITS | Encounter Summary ---
Author Organization [facility] Address [address] [place] [address] Phone Care Team Providers Care Brineyard Supervisor Name Role Phone Justen Gale MD Primary Care Provider David Roberts APRN, CHEMISTRY QUALITY CONTROL ANALYST Unavailable Annel Rod MD Unavailable Reason for Visit * Reason Comments Medication Refill Encounter Details Date Type Department Care Team (Late st Contact Info) Description 03/05/2023 Refill [facility] Medicine [facility] #2 [place] [address] iPli Elkins APRN, CHEMISTRY QUALITY CONTROL ANALYST #[address] [address] Medication Refill Social History [...] discontinued on 10/19/2022 by Justen Gale MD ELING PASSENGER AGENT documented in this encounter Plan of Treatment Upcoming Encounters Date Type Department Care Team (Late st Contact Info) Description 11/13/2024 2:00 PM CDT Appointment [facility] Cardiology Services 1 [place] [address] Angelito Alegria APRN, CHEMISTRY QUALITY CONTROL ANALYST #2 [facility] [address] [place] [address] Discharge Disposition: Discharged to home or Selfcare 11/19/2024 2:00 PM CDT Office Visit [facility] End[facility] - [place] #2 [place] [address] Annel Rod MD #2 [facility] [address] [place] [address] documented as of this encounter Visit Diagnoses Diagnosis Essential hypertension Unspecified essential hypertension documented in this encounter Additional Health Concerns Infection Onset Date Last Indicated Resolved Time COVID - 19 08/01/2024 08/01/2024 08/01/2024 3:20 PM CDT Assessment Noted Time PHQ-9 Depression Total Score: 8 01/18/20 2:24 PM CDT documented as of this encounter Care Teams Brineyard Supervisor Relationship Specialty Start Date End Date Justen Gale MD #2 [facility] [address] [place] [address] PCP - General Family Medicine 10/17/17 David Roberts APRN, NETTA #2 [place] [address] Nurse Practitioner Advanced Practice Nurse 01/31/22 Annel Rod MD #2 [facility] [address] [place] [address] Consulting Physician Endocrinology 07/01/22 documented as of this encounter
--- OUTSIDE RECORDS SUMMARY | 2024-11-12 16:42 | XMS_ITS | Encounter Summary ---
Author Organization [facility] Address [address] [place] [address] Phone Care Team Providers Care Cover Inspector Name Role Phone Justen Gale MD Primary Care Provider David Roberts APRN, COMMERCIAL DEVELOPMENT MANAGER Unavailable Annel Rod MD Unavailable Reason for Visit * Reason Comments Medication Refill Encounter Details Date Type Department Care Team (Late st Contact Info) Description 07/12/2022 Refill [facility] #2 [place] [address] Justen Gale MD #[address] [address] Medication Refill Social History Tobacco Use Types [...] 07/05/22 Office Visit Pili Elkins APRN, NETTA [facility] [place] 05/02/22 Office Visit Justen Gale MD [facility] [place] 03/03/22 Office Visit Pili Elkins APRN, COMMERCIAL DEVELOPMENT MANAGER [facility] [place] 01/03/22 Office Visit Dannielle Berg PAC [facility] [place] 12/07/21 Office Visit Pili Elkins APRN, NETTA [facility] [place] 11/09/21 Office Visit Pili Elkins APRN, NETTA [facility] [place] 10/08/21 Office Visit Angelito Alegria APRN, NETTA [facility] [place] 08/30/21 Office Visit Justen Gale MD [facility] Showing recent visits within past 365 days and meeting all other requirements Future Appointments No visits were found meeting these conditions. Showing future appointments within next 90 days and meeting all other requirements documented in this encounter Plan of Treatment Upcoming Encounters Date Type Department Care Team (Late st Contact Info) Description 11/13/2024 2:00 PM CDT Appointment [facility] Cardiology Services 1 [place] [address] Angelito Alegria APRN, COMMERCIAL DEVELOPMENT MANAGER #[address] [address] Discharge Disposition: Discharged to home or Selfcare 11/19/2024 2:00 PM CDT [facility] Visit [facility] End[facility] #2 [place] [address] Annel Rod MD #[address] [address] documented as of this encounter Visit Diagnoses Not on filedocumented in this encounter Additional Health Concerns Infection Onset Date Last Indicated Resolved Time COVID - 19 08/01/2024 08/01/2024 08/01/2024 3:20 PM CDT Assessment Noted Time PHQ-9 Depression Total Score: 0 07/21/19 21 3:00 PM CDT documented as of this encounter Care Teams Cover Inspector Relationship Specialty Start Date End Date Justen Gale MD #[address] [address] PCP - General Family Medicine 10/17/17 David Roberts APRN, COMMERCIAL DEVELOPMENT MANAGER #2 [place] [address] Nurse Practitioner Advanced Practice Nurse 01/31/22 Annel Rod MD #[address] [address] Consulting Physician Endocrinology 07/01/22 documented as of this encounter
--- OUTSIDE RECORDS SUMMARY | 2024-11-12 16:42 | XMS_ITS | Encounter Summary ---
Author Organization [facility] Address [address] [place] [address] Phone Care Team Providers Care Treatment Specialist Name Role Phone Justen Gale MD Primary Care Provider David Roberts APRN, BAKER Unavailable Annel Rod MD Unavailable Reason for Visit * Reason Onset Date Comments Pain 09/23/2024 Encounter Details Date Type Department Care Team (Late st Contact Info) Description 09/23/2024 Telephone [facility] [address] [place] [address] Justen Gale MD #[address] [address] Pain Social History Tobacco Use Types Packs/Day Years Used Date Smoking Tobacco: Never Smokeless Tobacco: Never Alcohol Use Standard Drinks/Week Comments No 0 (1 standard drink = 0.6 oz pur e alcohol) [facility] Utilities Answer Date Recorded In the past 12 months has [employer], gas, oil, or water company threatened [...] any clubs o r organizations such as mormonism groups, unions, fraternal or athletic groups, or [...] any time in the past 12 m [facility], were you homeless or living [...] - patient has RA Outcome: Transfer to motor vehicle licence examiner queue Reason: Caller denied all higher acuity questions The caller accepted this outcome. Caller Denied: * Chest pain * Headache * Eye pain * Abdominal pain * Genital pain documented in this encounter Plan of Treatment Upcoming Encounters Date Type Department Care Team (Late st Contact Info) Description 11/13/2024 2:00 PM CDT Appointment [facility] Cardiology Services 1 [place] [address] Angelito Alegria APRN, BAKER #2 [facility] [address] [place] [address] Discharge Disposition: Discharged to home or Selfcare 11/19/2024 2:00 PM CDT Office Visit [facility] - [place] #2 [place] [address] Annel Rod MD #2 [facility] [address] [place] [address] documented as of this encounter Visit Diagnoses Not on filedocumented in this encounter Additional Health Concerns Assessment Noted Time PHQ-9 Depression Total Score: 0 08/02/19 25 1:09 PM CDT documented as of this encounter Care Teams Treatment Specialist Relationship Specialty Start Date End Date Justen Gale MD #2 [facility] [address] [place] [address] PCP - General Family Medicine 10/17/17 David Roberts APRN, BAKER #2 [place] [address] Nurse Practitioner Advanced Practice Nurse 01/31/22 Annel Rod MD #2 [facility] [address] [place] [address] Consulting Physician Endocrinology 07/01/22 documented as of this encounter
--- OUTSIDE RECORDS SUMMARY | 2024-11-12 16:42 | XMS_ITS | Encounter Summary ---
Author Organization [facility] Address [address] [place] [address] Phone Care Team Providers Care Second Language Tutor Name Role Phone Justen Gale MD Primary Care Provider David Roberts APRN, SENIOR ACCOUNTANT CPA Unavailable [phone] Annel Rod MD Unavailable Reason for Visit * Reason Onset Date Comments Breathing Problem 08/07/2024 Muscle Pain 08/07/2024 Encounter Details Date Type Department Care Team (Late st Contact Info) Description 08/07/2024 Nurse Triage [facility] [address] [place] [address] Justen Gale MD #[address] [address] Breathing Problem; Muscle Pain Social History Tobacco Use Types Packs/Day Years Used Date Smoking Tobacco: Never Smokeless Tobacco: Never Alcohol Use Standard Drinks/Week Comments No 0 (1 standard drink = 0.6 oz pur e alcohol) [facility] Utilities Answer Date Recorded In the [...] Total Score - Questions 1-9 0 07/23 [facility] - Occupational [...] time in the past 12 m [facility], were you homeless or living in [...] this was discussed with the front desk representative and provider was to be notified in [...] Encouraged caller to bring cell phone and tobacco sample puller to contact EMS 911 if symptoms [...] (e.g., disoriented, slurred speech) Protocols used: Breathing [id number] * Telephone Encounter - Neha Tomlinson - 08/07/2024 1:30 PM CDT Symptoms: Altered Mental Status, Body Aches, Breathing Trouble Outcome: Warm transfer to an emergent RN NOW! Reason: Trouble walking The caller accepted this outcome. documented in this encounter Plan of Treatment Upcoming Encounters Date Type Department Care Team (Late st Contact Info) Description 11/13/2024 2:00 PM CDT Appointment [facility] Cardiology Services 1 [place] [address] Angelito Alegria APRN, NETTA #2 [facility] [address] [place] [address] Discharge Disposition: Discharged to home or Selfcare 11/19/2024 2:00 PM CDT Office Visit [facility] End[facility] #2 [place] [address] Annel Rod MD #2 [facility] [address] [place] [address] documented as of this encounter Visit Diagnoses Not on filedocumented in this encounter Additional Health Concerns Assessment Noted Time PHQ-9 Depression Total Score: 0 08/02/19 25 1:09 PM CDT documented as of this encounter Care Teams Second Language Tutor Relationship Specialty Start Date End Date Justen Gale MD #2 [facility] [address] [place] [address] PCP - General Family Medicine 10/17/17 David Roberts APRN, NETTA #2 [place] [address] Nurse Practitioner Advanced Practice Nurse 01/31/22 Annel Rod MD #2 [facility] [address] [place] [address] Consulting Physician Endocrinology 07/01/22 documented as of this encounter
--- OUTSIDE RECORDS SUMMARY | 2024-11-12 16:42 | XMS_ITS | Encounter Summary ---
Author Organization [facility] Address [address] [place] [address] Phone Care Team Providers Care Auto Service Dispatcher Name Role Phone Justen Gale MD Primary Care Provider David Roberts APRN, DOG HANDLER Unavailable Annel Rod MD Unavailable Reason for Visit * Reason Comments Medication Refill Encounter Details Date Type Department Care Team (Late st Contact Info) Description 07/14/2022 Refill [facility] #2 [place] [address] Justen Gale MD #[address] [address] Medication Refill Social History Tobacco Use Types [...] 11/13/2024 2:00 PM CDT Appointment [facility] Cardiology Services 1 [place] [address] Angelito Alegria APRN, DOG HANDLER #2 [facility] [address] [place] [address] Discharge Disposition: Discharged to home or Selfcare 11/19/2024 2:00 PM CDT Office Visit [facility] Endocr[facility]ology - [place] #2 [place] [address] Annel Rod MD #2 [facility] [address] [place] [address] documented as of this encounter Visit Diagnoses Not on filedocumented in this encounter Additional Health Concerns Infection Onset Date Last Indicated Resolved Time COVID - 19 08/01/2024 08/01/2024 08/01/2024 3:20 PM CDT Assessment Noted Time PHQ-9 Depression Total Score: 0 07/21/19 21 3:00 PM CDT documented as of this encounter Care Teams Auto Service Dispatcher Relationship Specialty Start Date End Date Justen Gale MD #2 [facility] [address] [place] [address] PCP - General Family Medicine 10/17/17 David Roberts, HEAT TREATING BLUER, DOG HANDLER #2 [place] [address] Nurse Practitioner Advanced Practice Nurse 01/31/22 Annel Rod MD #2 [facility] [address] [place] [address] Consulting Physician Endocrinology 07/01/22 documented as of this encounter
--- OUTSIDE RECORDS SUMMARY | 2024-11-12 16:42 | XMS_ITS | Encounter Summary ---
Author Organization [facility] Address [address] [place] [address] Phone Care Team Providers Care Cotton Buyer Name Role Phone Justen Gale MD Primary Care Provider [phone] David Roberts APRN, TOBACCO SIZER Unavailable [phone] Annel Rod MD Unavailable Reason for Visit * Reason Comments Medication Refill Encounter Details Date Type Department Care Team (Late st Contact Info) Description 08/07/2023 Refill [facility] - [place] #2 [place] [address] Annel Rod MD #[address] [address] Medication Refill Social History Tobacco [...] 11/13/2024 2:00 PM CDT Appointment [facility] Cardiology Services 1 [place] [address] Angelito Alegria APRN, TOBACCO SIZER #[address] [address] Discharge Disposition: Discharged to home or Selfcare 11/19/2024 2:00 PM CDT Office Visit [facility] - Endocr[facility] #2 [place] [address] Annel Rod MD #[address] [address] documented as of this encounter Visit Diagnoses Not on filedocumented in this encounter Additional Health Concerns Infection Onset Date Last Indicated Resolved Time COVID - 19 08/01/2024 08/01/2024 08/01/2024 3:20 PM CDT Assessment Noted Time PHQ-9 Depression Total Score: 8 01/18/20 2:24 PM CDT documented as of this encounter Care Teams Cotton Buyer Relationship Specialty Start Date End Date Justen Gale MD #[address] [place] [address] PCP - General Family Medicine 10/17/17 David Roberts APRN, TOBACCO SIZER #2 [place] [address] Nurse Practitioner Advanced Practice Nurse 01/31/22 Annel Rod MD #[address] [address] Consulting Physician Endocrinology 07/01/22 documented as of this encounter
--- OUTSIDE RECORDS SUMMARY | 2024-11-12 16:42 | XMS_ITS | Encounter Summary ---
Author Organization [facility] Address [address] [place] [address] Phone Care Team Providers Care African Studies Professor Name Role Phone Justen Gale MD Primary Care Provider David Roberts APRN, FELLER HAND Unavailable [phone] Annel Rod MD Unavailable Reason for Visit * Reason Onset Date Comments Sore Throat 09/02/2024 Encounter Details Date Type Department Care Team (Late st Contact Info) Description 09/02/2024 Nurse Triage [facility] Central Call Center [address] [place] [address] Justen Gale MD #[address] [address] Sore Throat Social History Tobacco Use Types Packs/Day Years Used Date Smoking Tobacco: Never Smokeless Tobacco: Never Alcohol Use Standard Drinks/Week Comments No 0 (1 standard drink = 0.6 oz pur e alcohol) [facility] Utilities Answer Date Recorded In [...] How often do you attend chur or judaism services? More than 4 times [...] time in the past 12 m [facility], were you homeless or living in [...] Pharmacy, medications, and allergies reviewed. Discussed utilizing [employer] to: discuss if they would prefer a [employer] message or phone call response - See [...] Ulcers - Caller Reports Outcome: Transfer to hims coder queue Reason: Caller denied all higher acuity questions The caller accepted this outcome. Caller Denied: * Struggling for each breath (severe trouble breathing) * Can't swallow saliva (drooling) documented in this encounter Plan of Treatment Upcoming Encounters Date Type Department Care Team (Late st Contact Info) Description 11/13/2024 2:00 PM CDT Appointment [facility] Cardiology Services 1 [place] [address] Angelito Alegria APRN, FELLER HAND #[address] [address] Discharge Disposition: Discharged to home or Selfcare 11/19/2024 2:00 PM CDT Office Visit [facility] End[facility] - [place] #2 [place] [address] Annel Rod MD #[address] [address] documented as of this encounter Visit Diagnoses Not on filedocumented in this encounter Additional Health Concerns Assessment Noted Time PHQ-9 Depression Total Score: 0 08/02/19 25 1:09 PM CDT documented as of this encounter Care Teams African Studies Professor Relationship Specialty Start Date End Date Justen Gale MD #[address] [address] PCP - General Family Medicine 10/17/17 David Roberts APRN, FELLER HAND #2 [place] [address] Nurse Practitioner Advanced Practice Nurse 01/31/22 Annel Rod MD #[address] [address] Consulting Physician Endocrinology 07/01/22 documented as of this encounter
--- OUTSIDE RECORDS SUMMARY | 2024-11-12 16:42 | XMS_ITS | Encounter Summary ---
Author Organization [facility] Address [address] [place] [address] Phone Care Team Providers Care Assistant Branch Manager Name Role Phone Justen Gale MD Primary Care Provider David Roberts APRN, ABORIGINAL HOME SCHOOL LIAISON OFFICER Unavailable Annel Rod MD Unavailable Reason for Visit * Reason Comments Medication Refill Encounter Details Date Type Department Care Team (Late st Contact Info) Description 08/30/2022 Refill [facility] - Family Medicine [facility] #2 [place] [address] Justen Gale MD #[address] [address] Medication Refill Social History Tobacco Use Types [...] [place] 05/02/22 Office Visit Justen Gale MD [facility] [place] 03/03/22 Office Visit Pili Elkins APRN, NETTA [facility] [place] 01/03/22 Office Visit Dannielle Berg PAC [facility] [place] 12/07/21 Office Visit Pili Elkins APRN, NETTA [facility] [place] 11/09/21 Office Visit Pili Elkins APRN, NETTA [facility] [place] 10/08/21 Office Visit Angelito Alegria APRN, NETTA [facility] [place] 08/30/21 [facility] recent visits within past [...] [facility] 1 [place] [address] Angelito Alegria APRN, ABORIGINAL HOME SCHOOL LIAISON OFFICER #[address] [address] Discharge Disposition: Discharged to home or Selfcare 11/19/2024 2:00 PM CDT [facility] Visit [facility] - [place] #2 [place] [address] Annel Rod MD #[address] [address] documented as of this encounter Visit Diagnoses Not on filedocumented in this encounter Additional Health Concerns Infection Onset Date Last Indicated Resolved Time COVID - 19 08/01/2024 08/01/2024 08/01/2024 3:20 PM CDT Assessment Noted Time PHQ-9 Depression Total Score: 0 07/21/19 3:00 PM CDT documented as of this encounter Care Teams Assistant Branch Manager Relationship Specialty Start Date End Date Justen Gale MD #[address] [address] PCP - General Family Medicine 10/17/17 David Roberts APRN, ABORIGINAL HOME SCHOOL LIAISON OFFICER #2 [place] [address] Nurse Practitioner Advanced Practice Nurse 01/31/22 Annel Rod MD #[address] [address] Consulting Physician Endocrinology 07/01/22 documented as of this encounter
--- OUTSIDE RECORDS SUMMARY | 2024-11-12 16:42 | XMS_ITS | Encounter Summary ---
Author Organization [facility] Address [address] [place] [address] Phone Care Team Providers Care Orthopedic Rn Name Role Phone Justen Gale MD Primary Care Provider David Roberts APRN, ACCOUNT SPECIALIST Unavailable Annle Rod MD Unavailable Reason for Visit * Reason Comments Medication Refill Encounter Details Date Type Department Care Team (Late st Contact Info) Description 07/06/2023 Refill [facility] Family [facility] #2 [place] [address] Justen Gale MD #[address] [address] Medication Refill Social History Tobacco Use Types [...] AM CDT Medication(s) refilled and signed per [facility] Chronic Medication Refill Standing Order [...] Visit Justen Gale MD [facility] [place] 01/17/23 Office Visit Catrina Quiñonez MD [facility] [place] Showing recent visits within past [...] [facility] 1 [place] [address] Angelito Alegria, DIAMOND GRADER, ACCOUNT SPECIALIST #[address] [address] Discharge Disposition: Discharged to home or Selfcare 11/19/2024 2:00 PM CDT Office Visit [facility] - [place] #2 [place] [address] Annel Rod MD #2 [facility] [address] [place] [address] documented as of this encounter Visit Diagnoses Not on filedocumented in this encounter Additional Health Concerns Infection Onset Date Last Indicated Resolved Time COVID - 19 08/01/2024 08/01/2024 08/01/2024 3:20 PM CDT Assessment Noted Time PHQ-9 Depression Total Score: 8 01/18/20 23 2:24 PM CDT documented as of this encounter Care Teams Orthopedic Rn Relationship Specialty Start Date End Date Justen Gale MD #2 [facility] [address] [place] [address] PCP - General Family Medicine 10/17/17 David Roberts APRN, ACCOUNT SPECIALIST #2 [place] [address] Nurse Practitioner Advanced Practice Nurse 01/31/22 Annel Rod MD #[address] [address] Consulting Physician Endocrinology 07/01/22 documented as of this encounter
--- OUTSIDE RECORDS SUMMARY | 2024-11-12 16:42 | XMS_ITS | Encounter Summary ---
Author Organization [facility] Address [address] [place] [address] Phone Care Team Providers Care House Wirer Name Role Phone Justen Gale MD Primary Care Provider David Roberts APRN, DOWEL SETTING MACHINE OPERATOR Unavailable Annel Rod MD Unavailable Reason for Visit * Reason Comments Medication Refill Encounter Details Date Type Department Care Team (Late st Contact Info) Description 10/24/2022 Refill [facility] Family [facility] #2 [place] [address] Pili Elkins APRN, DOWEL SETTING MACHINE OPERATOR #[address] [address] Medication Refill Social History [...] 11/13/2024 2:00 PM CDT Appointment [facility] Cardiology Services 1 [place] [address] Angelito Alegria, MANAGER PATHOLOGY, DOWEL SETTING MACHINE OPERATOR #[address] [address] Discharge Disposition: Discharged to home or Selfcare 11/19/2024 2:00 PM CDT Office Visit [facility] End[facility] #2 [place] [address] Annel Rod MD #[address] [address] documented as of this encounter Visit Diagnoses Diagnosis Essential hypertension Unspecified essential hypertension documented in this encounter Additional Health Concerns Infection Onset Date Last Indicated Resolved Time COVID - 19 08/01/2024 08/01/2024 08/01/2024 3:20 PM CDT Assessment Noted Time PHQ-9 Depression Total Score: 0 09/17/19 23 11:00 AM CDT documented as of this encounter Care Teams House Wirer Relationship Specialty Start Date End Date Justen Gale MD #[address] [address] PCP - General Family Medicine 10/17/17 David Roberts MANAGER PATHOLOGY, DOWEL SETTING MACHINE OPERATOR #2 [place] [address] Nurse Practitioner Advanced Practice Nurse 01/31/22 Annel Rod MD #[address] [address] Consulting Physician Endocrinology 07/01/22 documented as of this encounter
--- OUTSIDE RECORDS SUMMARY | 2024-11-12 16:42 | XMS_ITS | Encounter Summary ---
Author Organization [facility] Address [address] [place] [address] Phone Care Team Providers Care Fountain Vending Mechanic Name Role Phone Justen Gale MD Primary Care Provider David Roberts APRN, RADIOLOGY AIDE Unavailable Annel Rod MD Unavailable Reason for Visit * Reason Comments Medication Refill Encounter Details Date Type Department Care Team (Late st Contact Info) Description 04/13/2023 Refill [facility] - [place] #2 [place] [address] Annel Rod MD #[address] [address] Medication Refill Social History [...] Jennifer Wang RN - 04/14/2023 10:00 AM SUBSTATION ENGINEER Requested Prescriptions Pending Prescriptions Disp Refills ??? Continuous Blood Gluc Sensor (FreeStyle Eileen 2 Sensor) Misc [Pharmacy Med Name: FREESTYLE EILEEN 2 SENSOR] 6 Each 1 Sig: APPLY 1 SENSOR AND WEAR FOR 14 DAYS TO CHECK BLOOD SUGAR Next appt: 05/30/2023 TATION ENGINEER documented in this encounter Plan of Treatment Upcoming Encounters Date Type Department Care Team (Late st Contact Info) Description 11/13/2024 2:00 PM CDT Appointment [facility] Cardiology Services [address] [place] [address] Angelito Alegria APRN, RADIOLOGY AIDE #2 [facility] [address] [place] [address] Discharge Disposition: Discharged to home or Selfcare 11/19/2024 2:00 PM CDT Office Visit [facility] #2 [place] [address] Annel Rod MD #2 [facility] [address] [place] [address] documented as of this encounter Visit Diagnoses Not on filedocumented in this encounter Additional Health Concerns Infection Onset Date Last Indicated Resolved Time COVID - 19 08/01/2024 08/01/2024 08/01/2024 3:20 PM CDT Assessment Noted Time PHQ-9 Depression Total Score: 8 01/18/20 23 2:24 PM CDT documented as of this encounter Care Teams Fountain Vending Mechanic Relationship Specialty Start Date End Date Justen Gale MD #2 [facility] [address] [place] [address] PCP - General Family Medicine 10/17/17 David Roberts APRN, RADIOLOGY AIDE #2 [place] [address] Nurse Practitioner Advanced Practice Nurse 01/31/22 Annel Rod MD #[address] [address] Consulting Physician Endocrinology 07/01/22 documented as of this encounter
--- OUTSIDE RECORDS SUMMARY | 2024-11-12 16:42 | XMS_ITS | Encounter Summary ---
Author Organization [facility] Address [address] [place] [address] Phone Care Team Providers Care Acid Cutter Name Role Phone Justen Gale MD Primary Care Provider David Roberts APRN, CLOTH PIECER Unavailable [phone] Annel Rod MD Unavailable Reason for Visit * Reason Comments Medication Refill Encounter Details Date Type Department Care Team (Late st Contact Info) Description 02/07/2023 Refill [facility] Family Medicine [facility] #2 [place] [address] Pili Elkins APRN, CLOTH PIECER #[address] [address] Medication Refill Social History Tobacco [...] 11/13/2024 2:00 PM CDT Appointment [facility] Cardiology Services 1 [place] [address] Angelito Alegria, ZAMZAM, CLOTH PIECER #[address] [facility] [address] [place] [address] Discharge Disposition: Discharged to home or Selfcare 11/19/2024 2:00 PM CDT Office Visit [facility] - [place] #2 [place] [phone] Annel Rod MD #[address] [facility] [address] [place] [address] documented as of this encounter Visit Diagnoses Diagnosis Essential hypertension Unspecified essential hypertension documented in this encounter Additional Health Concerns Infection Onset Date Last Indicated Resolved Time COVID - 19 08/01/2024 08/01/2024 08/01/2024 3:20 PM CDT Assessment Noted Time PHQ-9 Depression Total Score: 8 01/18/20 2:24 PM CDT documented as of this encounter Care Teams Acid Cutter Relationship Specialty Start Date End Date Justen Gale MD #[address] [facility] [address] [place] [address] PCP - General Family Medicine 10/17/17 David Roberts APRN, CLOTH PIECER #2 [place] [address] Nurse Practitioner Advanced Practice Nurse 01/31/22 Annel Rod MD #[address] [facility] [address] [place] [address] Consulting Physician Endocrinology 07/01/22 documented as of this encounter
--- OUTSIDE RECORDS SUMMARY | 2024-11-12 16:42 | XMS_ITS | Encounter Summary ---
Author Organization [facility] Address [address] [place] [address] Phone Care Team Providers Care Baking Powder Mixer Name Role Phone Liu Jerez MD Unavailable Albert Corbin MD Unavailable Justen Gale MD Primary Care Provider Khris [place] MD Unavailable [phone] Ko Melendez MD Unavailable John Paul Moyer MD Unavailable Annel Rod MD Unavailable Anali MARSHALL MD, Carlos M. Unavailable [phone] Encounter Details Date Type Department Care Team [...] on file Legal Sex Female 12:24 AM INDEPENDENT INSURANCE ADJUSTER Gender Identity Not on file Sexual [...] COVID: Recovered 02/10/2022 02/10/2022 06/10/2022 3:05 AM INDEPENDENT INSURANCE ADJUSTER Exposure, COVID-19 Comment:Added automatically based on COVID19 lab answers indicating exposure risk 02/11/2022 02/11/2022 02/15/2022 9:06 AM C DT COVID: Suspected 05/14/2022 05/14/2022 05/14/2022 10:41 AM INDEPENDENT INSURANCE ADJUSTER COVID: Suspected 06/07/2022 06/07/2022 06/07/2022 12:28 PM INDEPENDENT INSURANCE ADJUSTER COVID: Suspected 06/21/2022 06/21/2022 06/21/2022 2:12 AM INDEPENDENT INSURANCE ADJUSTER COVID: Suspected 10/05/2022 10/05/2022 10/05/2022 7:40 PM CDT COVID: Suspected 01/04/2024 01/04/2024 01/04/2024 10:30 PM CDT COVID: Suspected 02/14/2024 02/14/2024 02/15/2024 12:36 AM CDT COVID: Suspected 07/01/2024 07/01/2024 07/01/2024 2:53 PM CDT COVID: Suspected 07/01/2024 07/01/2024 07/02/2024 3:05 AM CDT documented as of this encounter Care Teams Baking Powder Mixer Relationship Specialty Start Date End Date Justen Gale MD 2 [facility] [address] [place] [address] PCP - General 10/09/17 Liu Jerez MD Consulting Physician Gastroenterology 07/28/17 [place] [address] [facility] [address] [place] [address] Consulting Physician Pulmonary Disease 08/03/17 [place] [address] [place] [address] [address] [place] [address] Medical Oncologist/Surgical Scrub Technician Medical Oncology 10/23/17 [place] [address] [address] Surgeon Orthopedic Surgery 10/23/17 [place] [address] [facility] [address] [place] [address] Consulting Physician Pain Management 10/23/17 [place] [address] [address] Referring Physician General Surgery 01/26/18 [place] [address] [facility] [address] [place] [address] Consulting Physician Neurology 01/26/18 documented as of this encounter
--- OUTSIDE RECORDS SUMMARY | 2024-11-12 16:42 | XMS_ITS | Clinical Summary ---
Author Organization [facility] Address [address] [place] [address] Phone Care Team Providers Care Shell Molding Roller Blast Operator Name Role Phone Justen Gale MD Primary Care Provider [phone] David Roberts APRN, NAVIGATION TEACHER Unavailable [phone] Annel Rod MD Unavailable Allergies Active Allergy [...] without long-term current use of insulin ([facility]) Diagnosis: Diabetes Type 2 Blood testing frequency: 4 times a day 1 Each 11/22/19 18 Active Glucose Blood (ONE TOUCH ULTRA TEST) Strip Test four times daily. 400 Strip 3 02/11/20 20 Active Misc. Devices MiscIndication s:LUL (obstructive sleep apnea) Supply and instructions: 1 Each 09/10/19 21 Active OneTouch Delica Lancets 33G [facility] [...] Tablet by mouth. 12/28/19 24 Active Multiple Vitamins-[place] als (WOMENS MULTI PO) Take by mouth. [...] taking until cleared by PCP office or splicer helper. Will need to taper off slowly. [...] taking until cleared by PCP office or splicer helper. Will need to taper off slowly. [...] Overview: Added automatically from request for surgery [id number] Lymphedema of left upper extremity 08/09/2016 Pulmonary embolism 08/09/2016 Overview (11/09/2017): Last Assessment & Plan: On Rivaroxaban Arthralgia of ankle 01/26/2015 Cellulitis of breast 11/11/2014 Encounters Date Type Department Care Team Description 11/07/2024 [facility] [address] [place] [address] Justen Gale MD Advice Only; Fatigue; Shortness of Breath 11/06/2024 MyChart RX Renewal [facility] [place] #2 [place] [address] Justen Gale MD Medication Renewal Declined 11/05/2024 [facility] [place] [phone] Justen Gale MD Medication Refill 10/28/2024 MyChart RX [facility]al [facility] [place] [phone] Justen Gale MD Medication Renewal Reviewed 10/17/20[facility] [place] [address] Annel Rod MD Medication Refill 10/08/2024 Nurse Triage [facility] [address] [place] [phone] Justen Gale MD Abdominal Pain 09/30/2024 MyChart RX Renewal [facility] [place] [address] Dulce Wolff, PRISON GUARD, NAVIGATION TEACHER Medication Renewal Reviewed 09/29/2024 Nurse Triage [facility] Central Call [address] [place] [address] [address] Justen Gale MD Urinary Tract Infection 09/23/2024 Nurse Triage [facility] Central Call [address] [place] [address] [address] Justen Gale MD Breathing Problem; Pain 09/23/2024 Telephone [facility] [address] [place] [address] Justen Gale MD Pain 09/11/2024 Telephone [facility] [address] [place] [phone] Justen Gale MD Follow-up 09/06/2024 1:15 PM CDT Office Visit [facility] [place] [phone] Oehl, Dulce N, PRISON GUARD, NAVIGATION TEACHER Enlarged tonsils (Primary Dx); Polymyalgia rheumatica (HCC); Oral candidiasis; Edema, unspecified type Discharge Disposition: Discharged to home or Selfcare 09/06/2024 Travel 09/03/2024 Telephone [facility] [place] [address] Justen Gale MD Follow-up 09/02/2024 Nurse [facility] [address] [place] [phone] Justen Gale MD Sore Throat 08/20/2024 1:15 PM CDT Office Visit [facility] [place] [address] Justen Gale MD Acute maxillary sinusitis, recurrence not specified (Primary Dx) Discharge Disposition: Discharged to home or Selfcare 08/20/2024 Travel 08/19/2024 Telephone [facility] [place] [address] Justen Gale MD Advice Only; Follow-up 08/14/2024 Telephone [facility] #2 [place] [address] Annel Rod MD High Blood Sugar 08/13/2024 Nurse Triage [address] [address] Justen Gale MD High Blood Sugar from Last 3 Months Immunizations Immunization Administration Dates Next Due Covid-19 Vaccine, Vector-nr, Rs-ad26, Pf, 0.5 Ml ([facility] [facility]) 06/29/2020 Influenza Vaccine greater than 3 yrs [...] declined 08/06/2024 How often do you attend [facility] ch or mandaeism services? More than 4 [...] Total Score - Questions 1-9 0 07/23 [facility] [place] of Occupat ional Health - Occupational [...] any time in the past 12 m [facility], were you homeless or living [...] PM CDT Appointment [facility] Cardiology Services 1 [place] [address] Angelito Alegria, PRISON GUARD, NAVIGATION TEACHER #2 [facility] [address] [place] [address] Discharge Disposition: Discharged to home or Selfcare 11/19/2024 2:00 PM CDT Office Visit [facility] - [place] #2 [place] [address] Annel Rod MD #2 [facility] [address] [place] [address] Health Maintenance Due Date Last Done Comments [...] - ABDOMEN/PELVIS 10/03/2024 1 2:00 AM CDT [id number] CONSULT 09/27/2024 12:00 AM CDT EXTERNAL ENT [...] Performing Organization Address City/[facility]/ZIP Co de Phone Number SCAN * THYROID STIMULATING HORMONE (TSH) (11/07/2024 12:00 AM CDT) 11/07/2024 us Provider Scan CHEMISTRY ORDERABLES Final Resul t SCAN * APTT (PTT) (11/07/2024 12:00 AM CDT) 11/07/2024 us Provider Scan HEMATOLOGY ORDERABLES Final Resu lt Performing Organization Address [facility] de Phone Number SCAN * PROTIME (PT) (PROTHROMBIN TIME) (11/07/2024 12:00 AM CDT) INR 2.0 SCAN 11/07/2024 us Provider Scan HEMATOLOGY ORDERABLES Final Resu lt Performing Organization Address [facility] de Phone Number SCAN * MAGNESIUM (MG) (11/07/2024 12:00 AM CDT) 11/07/2024 us Provider Scan CHEMISTRY ORDERABLES Final Resul t Performing Organization Address [facility] de Phone Number SCAN * LACTIC ACID (LACTATE) (11/07/2024 12:00 AM CDT) 11/07/2024 us Provider Scan CHEMISTRY ORDERABLES Final Resul t Performing Organization Address [facility] de Phone Number SCAN * CMP (COMPREHENSIVE METABOLIC PANEL) (11/07/2024 12:00 AM CDT) 11/07/2024 us Provider Scan CHEMISTRY ORDERABLES Final Resul t Performing Organization Address [facility] de Phone Number SCAN * COMPLETE BLOOD COUNT (CBC) WITH DIFF (11/07/2024 12:00 AM CDT) 11/07/2024 us Provider Scan HEMATOLOGY ORDERABLES Final Resu lt Performing Organization Address [facility] de Phone Number SCAN * B-TYPE NATRIURETIC PEPTIDE (BNP) (11/07/2024 12:00 AM CDT) 11/07/2024 us Provider Scan CHEMISTRY ORDERABLES Final Resul t Performing Organization Address [facility] de Phone Number SCAN * INTERNAL MEDICINE CONSULT (10/17/2024 12:00 AM CDT) Only the most recent of2 resultswithin the time period is included. 10/17/2024 us Provider Scan GENERIC SCAN ORDERS CONSULT Deann l Result Performing Organization Address [facility] de Phone Number SCAN * CT - ABDOMEN/PELVIS (10/15/2024 12:00 AM CDT) Only the most recent of4 resultswithin the time period is included. 10/15/2024 us Provider Scan IMG CT ORDERABLES Final Result Performing Organization Address [facility] de Phone Number SCAN * SURGERY CONSULT (10/12/2024 12:00 AM CDT) 10/12/2024 us Provider Scan GENERIC SCAN ORDERS CONSULT Deann l Result Performing Organization Address [facility] de Phone Number SCAN * CT - SPINE (10/06/2024 12:00 AM CDT) 10/06/2024 us Provider Scan IMG CT ORDERABLES Final Result Performing Organization Address [facility] de Phone Number SCAN * EXTERNAL ENT REFERRAL (09/27/2024 12:00 AM CDT) 09/27/2024 us Dulce N Oehl PRISON GUARD, NAVIGATION TEACHER OUTPT REFERRALS EXT/INT F inal Result Performing Organization Address [facility] de Phone Number SCAN * XR - CHEST (09/27/2024 12:00 AM CDT) 09/27/2024 us Provider Scan IMG DIAGNOSTIC ORDERABLES Final Result Performing Organization Address [facility] de Phone Number SCAN * PPC-APZI-TSESES CONSULT (09/27/2024 12:00 AM CDT) 09/27/2024 us Provider Scan GENERIC SCAN ORDERS CONSULT Deann l Result Performing Organization Address [facility] de Phone Number SCAN * PAIN CONSULT (09/19/2024 12:00 AM CDT) 09/19/2024 us Justen Gale MD GENERIC SCAN ORDERS CONSULT F inal Result Performing Organization Address [facility] de Phone Number SCAN * CT - HEAD/NECK (08/13/2024 12:00 AM CDT) 08/13/2024 us Provider Scan IMG CT ORDERABLES Final Result Performing Organization Address [facility] de Phone Number SCAN * HEMOGLOBIN, A1C (10/02/2023 12:00 AM CDT) HGB-A1C 7.8 SCAN 10/02/2023 us Provider Scan CHEMISTRY ORDERABLES Final Resul t Performing Organization Address [facility] Co de Phone Number SCAN * HM COLONOSCOPY (01/09/2020) us Genaro Jensen DO PROCEDURE/MINOR SURGICAL ORDERA BLES Final Result * AMB REFERRAL TO PODIATRY (08/13/2019) us Alvarez Mensah MD OUTPATIENT REFERRALS Final Res ult * POCT STOOL, OCCULT BLOOD, DIAGNOSTIC (09/07/2018 1:20 PM CDT) OCCULT BLOOD, STOOL Negative Negative, Other POC HEMOCULT CONTROL Program Aide Pass 09/07/2018 1:20 PM CDT us Pili Elkins PRISON GUARD, NAVIGATION TEACHER POINT OF CARE TESTIN G (MANUAL) Final Result from Last 3 Months or Most Recently Relevant to Health Maintenance Insurance MEDICAID [place] MEDICARE C [facility] Care Teams Shell Molding Roller Blast Operator Relationship Specialty Start Date End Date Justen Gale MD #2 [place] [address] PCP - General Family Medicine 10/17/17 David Roberts APRN, NAVIGATION TEACHER #[address] [place] [address] Nurse Practitioner Advanced Practice Nurse 01/31/22 Annel Rod MD #[address] [address] Consulting Physician Endocrinology 07/01/22
== END 2024-11-12 17:52 | disposition left against medical advice (07) ==
PROVIDERS: PCP Internal Medicine
DX: R06.02 Shortness of breath (principal)
CPT/HCPCS: 99199

== ENCOUNTER 2024-11-15 15:18 | Inpatient (IN) | payer MEDICARE, MEDICAID, SELFPAY ==
--- NOTE | ~2024-11-15 | US_ITS ---
EXAMINATION:US venous doppler UE LT INDICATION:Left arm edema TECHNIQUE: Multiple grayscale, color flow and Doppler images of the left upper extremity deep venous systems were obtained and reviewed. COMPARISON:03/18/2024 FINDINGS: The left jugular, subclavian, axillary, brachial, basilic, cephalic, radial and ulnar veins demonstrate normal respiratory variation, augmentation and compressibility. Color flow is also seen within the left jugular, subclavian, axillary, brachial, basilic, cephalic an d radial veins. IMPRESSION: No left upper extremity deep venous thrombosis. Reviewed, dictated and finalized at location A.
--- NOTE | ~2024-11-15 | US_ITS ---
EXAMINATION: US venous doppler [facility] DATE: 11/18/2024 10:34 INDICATION: Edema TECHNIQUE: Grayscale ultrasound images without and with compression and Doppler ultrasound images of the left lower extremity veins were obtained. COMPARISON: None. FINDINGS: The visualized portions of left common femoral vein, profunda (deep) femoral vein, femoral vein, popl iteal vein, peroneal veins, posterior tibial veins, and greater saphenous vein outflow are patent. IMPRESSION: 1. No deep venous thrombosis within the left lower extremity, as detailed above. Reviewed, dictated and finalized at location A. IMPRESSION: 1. No deep venous thrombosis within the left lower extremity, as detailed sujata rush
--- NOTE | ~2024-11-15 | CT_ITS ---
CLINICAL INDICATION: Shortness of breath, pneumonia is suspected clinically COMPARISON: 08/07/2024 and 06/22/2023. TECHNIQUE: Multiple contiguous axial images of the chest was performed following the administration o f intravenous contrast. This CT examination was performed utilizing dose reduction techniques. DLP: 687 mGy-cm FINDINGS/OBSERVATIONS: LUNG:Trace bibasilar atelectasis. Left basilar and left lateral trace pleural thickening are noted. The lungs are otherwise clear. HEART: The heart is of normal size, without pericardial effusion. Densely calcified mitral valve. Trace calcifications within the aortic valve. MEDIASTINUM: Redemonstration of a morphologically suspicious lymph node within the retrosternal fat m easuring 12 mm in short axis dimension, unchanged from 06/22/2023 No pathologically enlarged or additional morphologically suspicious lymph nodes are identified within the mediastinum, bilateral axilla, within the soft tissues of the anterior chest wall. SOFT TISSUES OF THE CHEST: Dorsal spinal stimulator enters the spinal canal at the level of T8/T9 and extends cranially to the l evel of T7. The generator extends off the submitted image. BONES OF THE CHEST: No acute fracture. No lytic or blastic lesions are identified. There are bridging endplate osteophytes at multiple levels in the thoracic spine, consistent with dif fuse idiopathic skeletal hyperostosis (DISH). IMPRESSION: Dense calcifications within the mitral valve. Trace calcifications within the aortic valve. No focal infiltrate or effusion. Trace bibasilar atelectasis with trace pleural thickening in the left lung base and along the left la teral chest wall Reviewed, dictated and finalized at location A. IMPRESSION: Dense calcifications within the mitral valve. Trace calcifications within the aortic valve. No focal infiltrate or effusion. Trace bibasilar atelectasis with trace pleural thickening in the left lung base and along the left lateral chest wall
--- NOTE | ~2024-11-15 | XR_ITS ---
EXAMINATION: XR shoulder LT min 2V DATE: 11/18/2024 14:51 INDICATION: Chronic right shoulder pain TECHNIQUE: AP internally and externally rotated, AP oblique externally rotated and transscapular Y vi ews of the right shoulder were obtained. COMPARISON: None FINDINGS: Normal alignment. No fracture.Mild glenohumeral osteoarthritis. Change of prior distal left clavicle resection. Soft tissues are unremarkable. Visualized portion of the lungs are clear. IMPRESSION: Mild left glenohumeral osteoarthritis. No acute osseous abnormality. Reviewed, dictated and finalized at location A.
--- NOTE | ~2024-11-15 | XR_ITS ---
EXAM: XR hand RT 2V DATE: 11/17/2024 20:46 HISTORY: Right 1st 2nd MCP swelling/NO TRAUMA . COMPARISON: 01/28/2024 x-ray wrist; 11/21/2023 x-ray hand. FINDINGS: Normal mineralization. No fracture or dislocation. No lytic or blastic lesion. Mild scatte red degenerative changes. No erosion or periosteal change. Soft tissues within normal limits. IMPRESSION: No acute osseous finding in the right hand. Reviewed, dictated and finalized at location K.
--- NOTE | ~2024-11-15 | XR_ITS ---
EXAMINATION: XR chest 2V DATE: 11/15/2024 17:50 INDICATION: Shortness of breath TECHNIQUE: frontal and lateral views of the chest were obtained. COMPARISON: Chest radiograph dated 09/27/2024 FINDINGS: New opacities in the posterior medial right lower lung zone which could represent atelectasis or pneu monia. No other airspace opacities, pleural effusion or pneumothorax. Heart size is normal. Spinal st imulator leads project over the posterior central canal of the midthoracic spine. Severe thoracic spo ndylosis. IMPRESSION: 1. Opacities at the posterior medial right lower lung zone which could represent atelectasis or pneum onia. Reviewed, dictated and finalized at location A. IMPRESSION: 1. Opacities at the posterior medial right lower lung zone which could represen t atelectasis or pneumonia.
--- OUTSIDE RECORDS SUMMARY | 2024-11-15 15:21 | XMS_ITS | Encounter Summary ---
Author Organization [facility] Address [address] [place] [address] Phone Care Team Providers Care Felt Hat Inspector And Packer Name Role Phone Justen Gale MD Primary Care Provider David Roberts APRN, BASKET PERSON Unavailable Annel Rod MD Unavailable Reason for Visit * Reason Onset Date Comments Sore Throat 06/29/2020 Encounter Details Date Type Department Care Team (Late st Contact Info) Description 06/29/2020 Telephone [facility] #2 [place] [address] Justen Gale MD #[address] [address] Sore Throat Social History Tobacco Use Types [...] COVID-19? No / Unsure 06/29/2020 8:43 AM BELLHOP SERVICE CAPTAIN documented as of this encounter Miscellaneous Notes * Telephone Encounter - Gail Lucero RN - 06/29/2020 3:53 PM CST Attempted to call mailbox is full. Pt does not need testing HOP SERVICE CAPTAIN * Telephone Encounter - Vince Hermosillo MD - 06/29/2020 3:13 PM CST No covid testing needed. If the er thought that it was warranted then they would have done this. HOP SERVICE CAPTAIN * Telephone Encounter - Marlys Sorensen RN - 06/29/2020 8:36 AM CST Patient calling. Patient is calling to schedule Hospital/ED/Prompt-Care follow up appointment. Hospital/ED/Prompt-[facility] Site: [facility] ED Records Requested: Yes Reason [...] f/up and yearly PAP appointments? Please advise. HOP SERVICE CAPTAIN documented in this encounter Plan of Treatment Upcoming Encounters Date Type Department Care Team (Late st Contact Info) Description 11/19/2024 2:00 PM CDT Office Visit [facility] - Endocrinology [facility] #2 [place] [address] Annel Rod MD #2 [facility] [address] [place] [address] documented as of this encounter Visit Diagnoses Not on filedocumented in this encounter Additional Health Concerns Infection Onset Date Last Indicated Resolved Time COVID - 19 08/01/2024 08/01/2024 08/01/2024 3:20 PM CDT Assessment Noted Time PHQ-9 Depression Total Score: 0 09/08/19 1:00 PM CDT documented as of this encounter Care Teams Felt Hat Inspector And Packer Relationship Specialty Start Date End Date Justen Gale MD #2 [facility] [address] [place] [address] PCP - General Family Medicine 10/17/17 David Roberts APRN, NETTA #2 [place] [address] Nurse Practitioner Advanced Practice Nurse 01/31/22 Annel Rod MD #[address] [address] Consulting Physician Endocrinology 07/01/22 documented as of this encounter
--- OUTSIDE RECORDS SUMMARY | 2024-11-15 15:22 | XMS_ITS ---
Author Organization [facility] Address [address] [facility] [place] [address] Care Team Providers Care Country Printer Name Role Phone Justen Gale MD Primary Care Provider [phone] Active Problems Problem Noted Date Diagnosed Date [...]
--- OUTSIDE RECORDS SUMMARY | 2024-11-15 15:22 | XMS_ITS | Encounter Summary ---
Author Organization [facility] Address [address] [place] [address] Phone Care Team Providers Care Landscape Engineer Name Role Phone Justen Gale MD Primary Care Provider [phone] David Roberts APRN, CHEMICAL PLANT TECHNICAL DIRECTOR Unavailable Annel Rod MD Unavailable Reason for Visit * Reason Onset Date Comments Breathing Problem 08/07/2024 Muscle Pain 08/07/2024 Encounter Details Date Type Department Care Team (Late st Contact Info) Description 08/07/2024 Nurse Triage [facility] [address] [place] [address] Justen Gale MD #[address] [address] Breathing Problem; Muscle Pain Social History Tobacco Use Types Packs/Day Years Used Date Smoking Tobacco: Never Smokeless Tobacco: Never Alcohol Use Standard Drinks/Week Comments No 0 (1 standard drink = 0.6 oz pur e alcohol) [facility] Utilities Answer Date Recorded In the past [...] often do you attend chur ch or episcopalian services? More than 4 times [...] 0 07/23 [facility] of Occupat ional Health - Occupational [...] this was discussed with the front end mechanic and provider was to be notified in [...] caller to bring cell phone and pulley man to contact EMS 911 if symptoms worsen [...] (e.g., disoriented, slurred speech) Protocols used: Breathing [id number]-KG * Telephone Encounter - Neha Tomlinson - [...] - Endocrinology [facility] #2 [place] [address] Annel Rod MD #[address] [address] documented as of this encounter Visit Diagnoses Not on filedocumented in this encounter Additional Health Concerns Assessment Noted Time PHQ-9 Depression Total Score: 0 08/02/19 25 1:09 PM CDT documented as of this encounter Care Teams Landscape Engineer Relationship Specialty Start Date End Date Justen Gale MD #2 [facility] [address] [place] [address] PCP - General Family Medicine 10/17/17 David Roberts APRN, CHEMICAL PLANT TECHNICAL DIRECTOR #2 [place] [address] Nurse Practitioner Advanced Practice Nurse 01/31/22 Annel Rod MD #[address] [address] Consulting Physician Endocrinology 07/01/22 documented as of this encounter
--- OUTSIDE RECORDS SUMMARY | 2024-11-15 15:22 | XMS_ITS | Clinical Summary ---
Author Organization [facility] Address [address] [place] [address] Phone Care Team Providers Care Scarfer Operator Name Role Phone Justen Gale MD Primary Care Provider [phone] Allergies Active Allergy Reactions Criticality Noted Date [...] - 6.0 % 09/29/2017 10:28 AM CDT [facility] EST. AVG GLUCOSE, A1C 186 mg/dL 09/29/2017 10:28 AM CDT [employer] [facility] Blood Venipuncture / Unknown 09/28/2017 8:41 PM CDT 09/28/2017 8:46 PM CDT Narrative [facility] - 09/29/2017 10:28 AM CDT HGB A1C INTERPRETATION NORMAL: <5.7% PRE-DIABETES: 5.7 - 6.4% DIABETES: 6.5% OR GREATER us Francisco Castaneda MD CHEMISTRY ORDERABLES Final Resul t [facility] [employer] [facility]# [id number] 5 [facility] [place] [address] * (ABNORMAL) LIPID PANEL (09/28/2017 8:41 PM CDT) CHOLESTEROL 174 <200 mg/dL 09/30/2017 2:45 AM CDT [facility] [employer] [facility] TRIGLYCERIDE 109 <150 mg/dL 09/30/2017 2:45 AM CDT [facility] [employer] [facility] HDL 45 40 - 59 mg/dL 09/30/2017 2:45 AM CDT [facility] [employer] [facility] LDL CALCULATED 107(H) <100 mg/dL 09/30/2017 2:45 AM CDT [facility] [employer] [facility] NON-HDL CHOLESTEROL 129 <130 mg/dL 09/30/2017 2:45 AM CDT [facility] [employer] [facility] Blood Venipuncture / Unknown 09/28/2017 8:41 PM CDT 09/28/2017 8:46 PM CDT Narrative [facility] - 09/30/2017 2:45 AM CDT TOTAL CHOLESTEROL [...] [facility] [employer] [facility] [id number] 5 [facility] [employer] [place] [address] from Last 3 Months or Most Recently Relevant to Health Maintenance Insurance Advance Directives For more information, please contact: [phone] * Full Code (Latest Code Status on File) Date Activated Date Inactivated Comments 09/29/2017 7:45 AM 09/30/2017 9:14 PM * Full Code Date Activated Date Inactivated Comments 09/29/2017 1:25 AM 09/29/2017 7:45 AM Care Teams Scarfer Operator Relationship Specialty Start Date End Date Justen Gale MD [address] [facility] [address] [place] [address] PCP - General Cardiovascular Disease 09/14/17
--- OUTSIDE RECORDS SUMMARY | 2024-11-15 15:22 | XMS_ITS | Encounter Summary ---
Author Organization [facility] Address [address] [place] [address] Phone Care Team Providers Care Pneudraulic Systems Mechanic Name Role Phone Justen Gale MD Primary Care Provider David Roberts APRN, PRE SCHOOL MANAGER Unavailable [phone] Annel Rod MD Unavailable Encounter Details Date Type Department Care Team (Late st Contact Info) Description 11/14/2024 Telephone [facility] - Family Medicine [facility] [address] [place] [address] Justen Gale MD [address] [address] Social History Tobacco Use Types Packs/Day Years [...] encounter Miscellaneous Notes * Telephone Encounter - Marzena Saldaña MA - 11/14/2024 9:46 AM CDT Sleep therapy order for [facility] faxed successfully. documented in this encounter Plan of Treatment Upcoming Encounters Date Type Department Care Team (Late st Contact Info) Description 11/19/2024 2:00 PM CDT Office Visit [facility] - Endocrinology - [place] [address] [place] [address] Annel Rod MD [address] [id number] documented as of this encounter Visit Diagnoses Not on filedocumented in this encounter Additional Health Concerns Assessment Noted Time PHQ-9 Depression Total Score: 0 08/02/19 25 1:09 PM CDT documented as of this encounter Care Teams Pneudraulic Systems Mechanic Relationship Specialty Start Date End Date Justen Gale MD [address]2 [facility] [address] [place] [address] PCP - General Family Medicine 10/17/17 David Roberts, CARTON LETTERING MACHINE OPERATOR, PRE SCHOOL MANAGER [address] [place] [address] Nurse Practitioner Advanced Practice Nurse 01/31/22 Annel Rod MD [address]2 [facility] [address] [place] [address] Consulting Physician Endocrinology 07/01/22 documented as of this encounter
--- OUTSIDE RECORDS SUMMARY | 2024-11-15 15:22 | XMS_ITS | Referral Summary ---
Author Organization [facility] Address [address] [place] [address] Care Team Providers Care Track Laying Equipment Operator Name Role Phone Liu Jerez MD Unavailable Albert Corbin MD Unavailable Justen Gale MD Primary Care Provider Khris Arthur MD Unavailable [phone] Ko Melendez MD Unavailable [phone] John Paul Moyer MD Unavailable Annel Rod [...] 05/22/2024 Assessment & Plan (05/26/2024 10:08 AM PARTS LISTER): Presenting with urinary symptoms of right flank [...] 05/22/2024 Assessment & Plan (05/25/2024 7:52 AM PARTS LISTER): Hx of breast cancer c/b DVT/bilateral Pes [...] 05/22/2024 Assessment & Plan (05/22/2024 1:14 PM PARTS LISTER): -long-standing chronic back pain -CT L spine [...] 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) 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 10/17/2019 [...] without long-term current use of insulin ([facility]) 10/23/2017 Assessment & [...] 10/13/2017 Assessment & Plan (05/22/2024 12:29 PM PARTS LISTER): -Hx stage II, ER positive, HER2 negative [...] 08/01/2017 Assessment & Plan (05/22/2024 12:33 PM PARTS LISTER): -Hx LUL -Hospital provided CPAP ordered History of DVT (deep vein thrombosis) 08/01/2017 History of pulmonary embolism 08/01/2017 Generalized weakness 07/27/2017 Dyspnea 07/27/2017 Unintentional weight loss 07/27/2017 Acute cystitis without hematuria 07/27/2017 Nausea and vomiting 07/26/2017 Overview (07/28/2017): Added automatically from request for surgery [id number] Pulmonary embolism 08/09/2016 Assessment & Plan (10/23/2017 2:05 AM CDT): On Rivaroxaban Lymphedema of left upper extremity 08/09/2016 Assessment & Plan (05/25/2024 7:53 AM PARTS LISTER): S/p L axillary lymph node dissection 2014, [...] syndrome Assessment & Plan (05/22/2024 11:18 AM PARTS LISTER): -continue home Requip 5mg nightly Pain of lower extremity 03/12/2013 Overview (07/29/2016): Leg pain Essential hypertension Assessment & Plan (05/23/2024 10:42 AM PARTS LISTER): -Chart history of HTN but not on meds -BP elevated on admission, likely some pain contributing -Monitor closely once pain under adequate control, discussed following up with PCP for this Chronic anticoagulation Restless leg syndrome 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 Type 2 diabetes mellitus without complication Assessment & Plan (05/24/2024 1:39 PM PARTS LISTER): -Last Ha1c 8.4 in 2023, repeat 8.7 [...] In the past 12 months has e [employer], gas, oil, or water company threatened to [...] How often do you attend chur or jainism services? More than 4 times per year [...] on file Legal Sex Female 12:24 AM PARTS LISTER Gender Identity Not on file Sexual Orientation [...] CDT HEMOGLOBIN A1C STAT 05/21/2024 4:20 PM PARTS LISTER LIPID PANEL STAT 05/21/2024 4:20 PM PARTS LISTER DEXA AXIAL SKELETON BONE DENSITY 1 OR [...] reviewed 2021. Testing performed by: [facility], [address] [place] [address]., [address] Blood 07/01/2024 2:02 PM CDT 07/01/2024 2:12 PM CDT us Ilana Stevens MD LAB BLOOD ORDERABLES F inal Result [facility] [address] [facility] Department [place] [address] * (ABNORMAL) Hemoglobin A1c (05/21/2024 4:20 PM PARTS LISTER) Hgb A1C 8.7(H) 4.0 - 5.6 % Estimated Average Glucose 203 mg/dL [facility] Comment: The ADA recommends reporting an estimated Average Glucose (eAG) with all Hemoglobin A1c results using the equation derived from a study of 507 normal and diabetic adults. Minority populations were underrepresented and children were not included. (Diabetes Care 2020; 43(S1): S66-S76). The eAG is not equivalent to a fasting glucose. Blood 05/21/2024 4:20 PM PARTS LISTER 05/21/2024 4:55 PM PARTS LISTER us Leo Henry MD LAB BLOOD ORDERABLES Final Result [facility] [place] [address] * (ABNORMAL) Lipid panel (05/21/2024 4:20 PM PARTS LISTER) Cholesterol 205(H) 30 - 199 mg/dL Comment: [...] revised on 2017. Triglycerides 92 <=149 mg/dL [facility] Comment: Interpretive Data Ages < or [...] Non-HDL Cholesterol 150 mg/dL [facility] Comment: [...] on 2017. Chol/HDL ratio 4 [facility] Blood 05/21/2024 4:20 PM PARTS LISTER 05/21/2024 4:50 PM PARTS LISTER Narrative [facility] - 05/22/2024 4:17 PM PARTS LISTER Reflex us Leo Henry MD LAB BLOOD ORDERABLES Final Result [facility] [place] [address] * Dexa Axial Skeleton Bone Density 1 or 2 Site (08/02/2022 10:53 AM CDT) Anatomical Region Laterality Modality Body N/A Radiographic Lizeth ging Narrative 08/02/2022 3:34 PM CDT Patient Name: Karly Marques Date of : 1955 Date of scan: 08/02/2022 Bone mineral density was performed on a HoloCinnamon Discovery Densitometer. Based on machine cross-calibration and [...] by the International Society of Clinical Densitometry. [id number] Khris Arthur MD [facility] DXA PROCEDURES F inal Result * COLONOSCOPY [...] this written report and agrees with it. [facility]# Date Time Exam [id number] Aug 19, 2016 14:27:00 [facility] [address] Diag Mamm, inc CAD, unilat L Technologist(s): Carla Harris; ; [id number] Aug 19, 2016 15:39:00 [facility] [address] Breast US unilateral, ltd L ACC# Date Time Exam [id number] Aug 19, 2016 14:27:00 [facility] [address] Diag Mamm, inc CAD, unilat L Technologist(s): Carla Harris; ; [id number] Aug 19, 2016 15:39:00 [facility] [place] [address] Breast US unilateral, ltd L EXAMINATION: LEFT [...] SARABIA M.D. on Aug 19 2016 4:20P [id number] Procedure Note Miscellaneous, Not In File / Provider, Historical, MD - 09/17/2016 ANTHONY SARABIA M.D. JUDY RINCON M.D. FINAL REPORT The radiology attending physician has personally reviewed this study, and has reviewed and/or edited this written report and agrees with it. ACC# Date Time Exam [id number] Aug 19, 2016 14:27:00 [facility] [place] [address] Diag Mamm, inc CAD, unilat L Technologist(s): Carla Harris; ; [id number] Aug 19, 2016 15:39:00 [facility] [place] [address] Breast US unilateral, ltd L ACC# Date Time Exam [id number] Aug 19, 2016 14:27:00 [facility] [place] [address] Diag Mamm, inc CAD, unilat L Technologist(s): Carla Harris; ; [id number] Aug 19, 2016 15:39:00 C [address] Breast US unilateral, ltd L EXAMINATION: LEFT [...] SARABIA M.D. on Aug 19 2016 4:20P [id number] us Not In File Miscellaneous IMG MAMMO PROCEDURES F inal Result from Last 3 Months or Most Recently Relevant to Health Maintenance Insurance [facility] MEDICARE ADVANTAGE [facility] MEDICARE ADVANTAGE [facility] Address: [address] [address] [place] [address] [employer] MEDICARE ADVANTAGE Advance Directives For more information, please contact: [phone] Documents on File Type Date Recorded Patient Credit Card Interviewer Expl anation ADVANCE DIRECTIVE 12/23/2021 2:49 PM Power of Satellite Technician-Medical ADVANCE DIRECTIVE 12/23/2021 2:49 PM Living [...] First Alternate Health Care Agent Care Teams Track Laying Equipment Operator Relationship Specialty Start Date End Date Justen Gale MD [address] [facility] [address] [place] [address] PCP - General 10/09/17 Liu Jerez MD Consulting Physician Gastroenterology 07/28/17 [place] [address] [facility] [address] [place] [address] Consulting Physician Pulmonary Disease 08/03/17 Khris Arthur MD [address] [facility] [address] [place] [address] Medical Oncologist/Closer On Medical Oncology 10/23/17 [place] [address] [facility] [address] [place] [address] Surgeon Orthopedic Surgery 10/23/17 [place] [address] [facility] [address] [place] [address] Consulting Physician Pain Management 10/23/17 [place] [address] [facility] [address] [place] [address] Referring Physician General Surgery 01/26/18 [place] [address] [facility] [address] [place] [address] Consulting Physician Neurology 01/26/18
--- OUTSIDE RECORDS SUMMARY | 2024-11-15 15:22 | XMS_ITS | Encounter Summary ---
Author Organization [facility] Address [address] [place] [address] Phone Care Team Providers Care Glassware Finisher Name Role Phone Justen Gale MD Primary Care Provider David Roberts APRN, CRYSTAL GROWER Unavailable [phone] Annel Rod MD Unavailable Reason for Visit * Reason Comments Medication Refill Encounter Details Date Type Department Care Team (Late st Contact Info) Description 10/24/2022 Refill [facility] - Family Medicine [facility] [address] [place] [address] Pili Elkins APRN, CRYSTAL GROWER [address] [address] Medication Refill Social History Tobacco [...] Visit [facility] - Endocrinology - [place] [address] [place] [address] Annel Rod MD #[address] [address] documented as of this encounter Visit Diagnoses Diagnosis Essential hypertension Unspecified essential hypertension documented in this encounter Additional Health Concerns Infection Onset Date Last Indicated Resolved Time COVID - 19 08/01/2024 08/01/2024 08/01/2024 3:20 PM CDT Assessment Noted Time PHQ-9 Depression Total Score: 0 09/17/19 11:00 AM CDT documented as of this encounter Care Teams Glassware Finisher Relationship Specialty Start Date End Date Justen Gale MD #2 [facility] [address] [place] [address] PCP - General Family Medicine 10/17/17 David Roberts, LAUNDRY MANAGER, CRYSTAL GROWER [address] [place] [address] Nurse Practitioner Advanced Practice Nurse 01/31/22 Annel Rod MD #[address] [address] Consulting Physician Endocrinology 07/01/22 documented as of this encounter
--- OUTSIDE RECORDS SUMMARY | 2024-11-15 15:22 | XMS_ITS | Clinical Summary ---
Author Organization [facility] Address [address] [facility] [place] [address] Care Team Providers Care Grain Shipper Name Role Phone Justen Gale MD Primary Care Provider [phone] Source Comments [facility],non-[facility] Affiliates and Associated Physician Practices is amultiple site organization consisting of ambulatory clinics and hospital sitesin [place], [place], [place] and [place]. This disclosure is being madepursuant to the Care Everywhere program and may not contain all information available regarding this patient. Last updated 18.[facility] [employer] Allergies Active Allergy Reactions Criticality Noted Date [...] 4 Active Continuous Blood Gluc Sensor (FreeStyle Ieleen 2 Sensor Systm) [facility] APPLY 1 SENSOR AND WEAR [...] care, and heating? Somewhat hard 05/16/2023 [facility] of Occupat ional Health - Occupational Stress [...] on file Legal Sex Female 6:53 PM ANGLE FURNACEMAN Gender Identity Not on file Sexual Orientation [...] - URINE PROTEIN SCREENING 04/24/2024 09/11/2021 MEDICARE AW CALENDAR YEAR 2024 DIABETES-HGB A1C 08/19/2024 05/21/2024, [...] this topic Medical Devices Implanted Type Area Vp Clinical Research Device Identifier Shelf Expiration Date Model / Serial / Lot Lead Nrstm 60cm Penta 3mm Pdl 16 Chnl Implanted:Qt y: 1 on 09/16/2021 by [facility] Right: Spine Thoracic [employer] [id number] / / Description:CAMILO Slnt Dura Duraseal Pg Trilysine Amine 5 Implanted:Qt y: 1 on 09/16/2021 by Maxi Gregg [facility] Right: Spine Thoracic [employer] David [id number] / / Description:CAMILO Proclaim Plus 5 Implanted:Qt y: 1 on 02/16/2023 by Maxi Gregg [facility] Left: Back Cardenas Spine [id number] 11/07/2024 3670 / [id number] / Explanted Type Area Vp Clinical Research Device Identifier Shelf Expiration Date Model / Serial / Lot Gntr Nrstm 1.95inx2.19in Proclaim Elt Implanted:Qty: 1 on 09/16/2021 by Maxi Gregg [facility] at [facility] Explanted:Qty: 1 on 10/30/2021 by Maxi Gregg MD at [facility] Right: Spine Thoracic [facility] [...] COMPREHENSIVE METABOLIC PANEL (08/09/2024 1:40 PM CDT) [facility] Glucose 212(H) 70 - 99 mg/dL 08/09/2024 2:09 PM CDT [facility] Sodium 136 136 - 145 mmol/L 08/09/2024 2:09 PM CDT [facility] Potassium 3.9 3.5 - 5.1 mmol/L 08/09/2024 2:09 PM CDT [facility] Chloride 103 98 - 107 mmol/L 08/09/2024 2:09 PM CDT [facility] CO2 24 22 - 29 mmol/L 08/09/2024 2:09 PM CDT [facility] Calcium 9.4 8.4 - 10.4 mg/dL 08/09/2024 2:09 PM T [facility] Anion Gap 9 6 - 16 mmol/L 08/09/2024 2:09 PM CDT [facility] BUN 19 7 - 26 mg/dL 08/09/2024 2:09 PM T [facility] Creatinine 0.82 0.57 - 1.11 mg/dL 08/09/2024 2:09 PM [facility] Alkaline Phosphatase 68 40 - 150 U/L 08/09/2024 2:09 PM T [facility] ALT 22 6 - 57 U/L 08/09/2024 2:09 PM T [facility] AST 23 10 - 48 U/L 08/09/2024 2:09 PM [facility] Protein Total 8.0 6.4 - 8.3 gm/dL 08/09/2024 2:09 PM T [facility] Albumin 3.3(L) 3.4 - 5.0 gm/dL 08/09/2024 2:09 PM T [facility] Bilirubin Total 0.9 0.2 - 1.2 mg/dL 08/09/2024 2:09 PM [facility] eGFR by CKD-EPI 78(L) >=90 mL/min/1.7 3 m2 08/09/2024 2:09 PM [facility] Blood BLOOD SPECIMEN / Unknown Venipuncture / Unknown 08/09/2024 1:40 PM CDT 08/09/2024 1:43 PM T us Josué Bernal PA-C LAB - CHEMISTRY ORDERABLE S Final Result [facility] [address] [place] [address] * HEPATITIS C AB SCREEN RFLX NAAT QUANT (02/21/2023 6:30 PM CDT) Hepatitis C Antibody Non-react hugh Non-reac tive 02/21/2023 7:32 PM CDT [facility] Comment:Hepatitis C Antibody screen indicates [...] Epi Solitario MD LAB - CHEMISTRY ORDERABLES nal Result [facility] [address] [place] [address], [facility] [phone] * (ABNORMAL) HEMOGLOBIN A1C (12/25/2022 3:56 AM CDT) Pathologist [facility] Hemoglobin A1c 8.6(H) <=5.6 % 12/25/2022 2:47 PM CDT [facility] Estimated Average Glucose 200 mg/dL 12/25/2022 2:47 PM CDT [facility] Comment: HbA1c Interpretation: Normal : [...] CDT Jerrod Rodriguez MD LAB - CHEMISTRY RUSS VIZCARRA Final Result [place] [address] [place] [address], [facility] [phone] from Last 3 Months or Most Recently [...] 3:37 AM 03/23/2023 7:14 PM Care Teams Grain Shipper Relationship Specialty Start Date End Date Justen Gale MD PCP - General 07/05/21
--- OUTSIDE RECORDS SUMMARY | 2024-11-15 15:22 | XMS_ITS | Clinical Summary ---
Author Organization [facility] Address [facility] [place] [address] Care Team Providers Care Field Talent Qualification Specialist Name Role Phone Meena Bansal MD Unavailable [phone] Justen Gale MD Primary Care Provider [phone] Allergies Active Allergy Reactions Criticality Noted Date [...] reflux disease 09/05/2020 Malignant tumor of breast ([facility]/HCC [facility]) 08/22 Knee pain 09/05/2020 Other [...] 03/18/2018 Assessment & Plan (03/18/2018 2:55 AM MANAGER LANDSCAPE): Acute, patient reported as epigastric pain however may be atypical presentation. Troponins negative x2. Also in differential is GERD, PUD - Admit to observation -Follow-up troponins -Monitor vitals -N.p.o. at midnight - Stress echo in a.m. - Consider cardiology consult based on results of stress test -Begin Protonix Epigastric pain 03/18/2018 Assessment & Plan (03/18/2018 5:39 AM MANAGER LANDSCAPE): Acute, non radiating, worsens with lying down, [...] Speech impairment 01/30/2018 CVA (cerebral vascular accident) ([facility] HHS/ C) 01/24/2018 Neck pain on right side 12/01/2017 Anxiety and depression 11/12/2017 Chronic anticoagulation 11/09/2017 Constipation 11/09/2017 Uncontrolled type 2 diabetes mellitus with hyperglycemia, with long-term current use of insulin ([facility]) 11/06/2017 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 -continue exemestane Acute deep vein thrombosis ( DVT) of proximal vein of right lower extremity ([facility]) 10/17/2017 Dysuria 10/17/2017 Hyperthyroidism 10/17/2017 Cancer of overlapping sites of left female breast ([facility]) 10/13/2017 Syncope 09/29/2017 High blood pressure 08/22/2017 Overview (09/05/2020): Last Assessment & Plan: On lisinopril Last Assessment & Plan: On lisinopril Assessment & Plan (08/30/2018 9:57 PM CDT): Chronic. Controlled. -continue home medications Assessment & Plan (03/18/2018 2:51 AM MANAGER LANDSCAPE): Chronic, BPs currently 127/78 - To new home meds Morbid obesity with BMI of 50.0-59.9, adult 04/2017 Sepsis ([facility]) 08/22/2017 Type 2 diabetes mellitus ([facility]) 08/22 Overview (09/05/2020): Last Assessment & Plan: Hold janument. Start on SSI and accucheks Assessment & Plan (08/30/2018 10:01 PM CDT): Chronic. Controlled. -continue home insulin regimen of lantus 50 units q am -lispro 20 units with breakfast and lunch. 22 units with dinner. Assessment & Plan (03/18/2018 2:53 AM MANAGER LANDSCAPE): Chronic, patient reports medical compliance with 50 units of Lantus daily and 15 units of Humalog before meals. No recent HbA1c - Monitor POC glucose -[place] home regimen - Consider sliding scale insulin -Follow-up HbA1c Bronchitis 08/20/2017 LUL (obstructive sleep apnea) 08/01/2017 Assessment & Plan (03/18/2018 2:54 AM MANAGER LANDSCAPE): Chronic, on CPAP at home - Continue home CPAP History of DVT (deep vein thrombosis) 08/01/2017 Assessment & Plan (03/18/2018 2:54 AM MANAGER LANDSCAPE): Chronic - Continue home Xarelto Chest pressure 08/01/2017 Diet-controlled diabetes mellitus ([facility] HHS/H CC) 08/01/2017 History of pulmonary embolism 08/01/2017 Hyponatremia 08/01/2017 Positive blood culture 08/01/2017 Acute pharyngitis 07/27/2017 Generalized weakness 07/27/2017 Nausea and vomiting 07/26/2017 Overview (09/05/2020): Overview: Overview: Added automatically from request for surgery [id number] Overview: Added automatically from request for surgery [id number] Added automatically from request for surgery [id number] Neuropathy 07/05/2017 History of breast cancer 02/06/2017 Pulmonary embolism ([facility]) 08/09/2016 Overview (09/05/2020): Last Assessment [...] syndrome Assessment & Plan (03/18/2018 2:54 AM MANAGER LANDSCAPE): Chronic -Continue home ropinirole Pain of lower [...] Recorded In the past 12 months has [employer] gas, oil, or water [employer] threatened to shut off services in your [...] any time in the past 12 m [facility], were you homeless or living in a senior living (including now)? No 10/13/2023 Comments No Sex and Gender Information Value Date Recorded Sex Assigned at Female 09/06/2020 12:50 AM CDT Legal Sex Female 10:47 AM CDT Gender Identity Female 09/06/2020 12:50 AM CDT Sexual Orientation Straight 03/18/2018 3: 01 AM MANAGER LANDSCAPE Last Filed Vital Signs Vital Sign Reading [...] 8.0(H) <5.7 % 10/14/2023 5:50 AM CDT [facility] Comment: ADA GUIDELINES 2010 5.7 TO 6.4% INCREASED RISK OF DIABETES > OR = 6.5% CONSISTENT WITH DIABETES ESTIMATED AVG GLUCOSE 183 mg/dL 10/14/2023 5:50 AM CDT [facility] 10/14/2023 3:40 AM CDT us Peggy Bland MD LABORATORY Final Result [facility] [address] [place] [address], [place] [phone] * LIPID PANEL (10/14/2023 3:40 AM CDT) CHOLESTEROL 164 <200 MG/DL 10/14/2023 4:31 AM CDT [facility] TRIGLYCERIDES 114 <150 MG/DL 10/14/2023 4:31 AM CDT [facility] HDL 46 >40.0 MG/DL 10/14/2023 4:31 AM CDT [facility] LDL (CALCULATED) 95 <100 MG/DL 10/14/19 4:31 AM CDT [facility] NON HDL CHOLESTEROL 118 <130 MG/DL 10/13 4:31 AM T [facility] CHOL/HDL RATIO 3.6 0.0 - 4.5 10/14/2023 4:31 AM T [facility] VLDL CALCULATION 23 5 - 55 MG/DL 10/14/2023 4:31 AM CDT [facility] LIPID INTERPRETATION 10/14/2023 4:31 AM T [facility] Comment: NIH CONCENSUS REPORT RECOMMENDATIONS: ADULT CHILD LOW RISK: CHOLESTEROL <200 <170 TRIGLYCERIDE <150 --- HDL >=60 --- LDL <100 <110 BORDERLINE: CHOLESTEROL 200-239 170-199 TRIGLYCERIDE 150-199 --- HDL 40-59 --- LDL 100-159 110-129 HIGH RISK: CHOLESTEROL >=240 >=200 TRIGLYCERIDE >=200 --- HDL <40 --- LDL >=160 >=130 10/14/2023 3:40 AM CDT Peggy Bland MD LABORATORY Final Result [facility] [address] [place] [address], from Last 3 Months or Most Recently Relevant to Health Maintenance Insurance [facility] [place] [id number] [facility] Advance Directives * Full Code (Latest [...] 2:42 AM 03/18/2018 4:50 PM Care Teams Field Talent Qualification Specialist Relationship Specialty Start Date End Date Justen Gale MD [address] [address] PCP - General FAMILY PRACTICE 08/20/17 Meena Bansal MD [address] [facility] [address] [place] [address] [employer] CARDIOVASCULAR DISEASE 04/24/16
--- OUTSIDE RECORDS SUMMARY | 2024-11-15 15:22 | XMS_ITS | Encounter Summary ---
Author Organization [facility] Address [address] [place] [address] Phone Care Team Providers Care Fitness Technician Name Role Phone Justen Gale MD Primary Care Provider David Roberts APRN, BARTENDER Unavailable Annel Rod MD Unavailable Reason for Visit * Reason Onset Date Comments Follow-up 11/14/2024 Encounter Details Date Type Department Care Team (Late st Contact Info) Description 11/14/2024 Telephone [facility] [address] [place] [address] Justen Gale MD [address] [address] Follow-up Social History Tobacco Use Types Packs/Day Years Used Date Smoking Tobacco: Never Smokeless Tobacco: Never Alcohol Use Standard Drinks/Week Comments No 0 (1 standard drink = 0.6 oz pur e alcohol) [facility] Utilities Answer Date Recorded In the past 12 months has [employer] electric, gas, oil, or water company threatened [...] do you attend chur or latter-day services? More than 4 times per year [...] Total Score - Questions 1-9 0 07/23 [facility] - Occupational Stress Questionnaire Answer [...] any time in the past 12 m [facility], were you homeless or living [...] Miscellaneous Notes * Telephone Encounter - Fabiola Fall RN - 11/14/2024 12:38 PM CDT S: Provider Call B: Recommendations A: Received call from pharmacist at [facility] who states that it is recommended that the patient be placed on a statin medicaiton due to having diabetes and being between the ages of 40-75. R: Routing to provider to notify. documented in this encounter Plan of Treatment Upcoming Encounters Date Type Department Care Team (Late st Contact Info) Description 11/19/2024 2:00 PM CDT Office Visit [facility] - Endocrinology - [place] [address] [place] [address] Annel Rod MD #2 [facility] [address] [place] [address] documented as of this encounter Visit Diagnoses Not on filedocumented in this encounter Additional Health Concerns Assessment Noted Time PHQ-9 Depression Total Score: 0 08/02/19 25 1:09 PM CDT documented as of this encounter Care Teams Fitness Technician Relationship Specialty Start Date End Date Justen Gale MD #[address] [address] PCP - General Family Medicine 10/17/17 David Roberts APRN, BARTENDER [address] [place] [address] Nurse Practitioner Advanced Practice Nurse 01/31/22 Annel Rod MD #[address] [address] Consulting Physician Endocrinology 07/01/22 documented as of this encounter
--- OUTSIDE RECORDS SUMMARY | 2024-11-15 15:22 | XMS_ITS | Clinical Summary ---
Author Organization [facility] Address [address] [place] [address] Care Team Providers Care Table Keeper Name Role Phone Liu Jerez MD Unavailable Albert Corbin MD Unavailable [phone] Justen Gale MD Primary Care Provider Khris Arthur MD Unavailable [phone] Ko Melendez MD Unavailable John Paul Moyer MD Unavailable Annel Rod MD Unavailable Anali MARSHALL MD, Carlos M. Unavailable [phone] Allergies Active Allergy Reactions Criticality Noted Date [...] 05/22/2024 Assessment & Plan (05/26/2024 10:08 AM NUT TAPPER): Presenting with urinary symptoms of right flank [...] 05/22/2024 Assessment & Plan (05/25/2024 7:52 AM NUT TAPPER): Hx of breast cancer c/b DVT/bilateral Pes [...] 05/22/2024 Assessment & Plan (05/22/2024 1:14 PM NUT TAPPER): -long-standing chronic back pain -CT L spine [...] complication, without long-term current use of insulin ([facility]) 10/23/2017 Assessment & Plan [...] 10/13/2017 Assessment & Plan (05/22/2024 12:29 PM NUT TAPPER): -Hx stage II, ER positive, HER2 negative [...] 08/01/2017 Assessment & Plan (05/22/2024 12:33 PM NUT TAPPER): -Hx LUL -Hospital provided CPAP ordered History of DVT (deep vein thrombosis) 08/01/2017 History of pulmonary embolism 08/01/2017 Generalized weakness 07/27/2017 Dyspnea 07/27/2017 Unintentional weight loss 07/27/2017 Acute cystitis without hematuria 07/27/2017 Nausea and vomiting 07/26/2017 Overview (07/28/2017): Added automatically from request for surgery [id number] Pulmonary embolism 08/09/2016 Assessment & Plan (10/23/2017 2:05 AM CDT): On Rivaroxaban Lymphedema of left upper extremity 08/09/2016 Assessment & Plan (05/25/2024 7:53 AM NUT TAPPER): S/p L axillary lymph node dissection 2014, [...] syndrome Assessment & Plan (05/22/2024 11:18 AM NUT TAPPER): -continue home Requip 5mg nightly Pain of lower extremity 03/12/2013 Overview (07/29/2016): Leg pain Essential hypertension Assessment & Plan (05/23/2024 10:42 AM NUT TAPPER): -Chart history of HTN but not on meds -BP elevated on admission, likely some pain contributing -Monitor closely once pain under adequate control, discussed following up with PCP for this Chronic anticoagulation Restless leg syndrome 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 Type 2 diabetes mellitus without complication Assessment & Plan (05/24/2024 1:39 PM NUT TAPPER): -Last Ha1c 8.4 in 2023, repeat 8.7 [...] drink = 0.6 oz pur e alcohol) [facility] [employer] Answer Date Recorded In the past 12 months has [employer], gas, oil, or water [employer] threatened to shut off services in your [...] file Legal Sex Female 12:24 AM NUT TAPPER Gender Identity Not on file Sexual Orientation [...] CDT HEMOGLOBIN A1C STAT 05/21/2024 4:20 PM NUT TAPPER LIPID PANEL STAT 05/21/2024 4:20 PM NUT TAPPER DEXA AXIAL SKELETON BONE DENSITY 1 OR [...] reviewed 2021. Testing performed by: [facility], [address] [place] [address]., [id number] Blood 07/01/2024 2:02 PM CDT 07/01/2024 2:12 PM CDT us Ilana Stevens MD LAB BLOOD ORDERABLES F inal Result [facility] [address] [facility] Department [place] [address] * (ABNORMAL) Hemoglobin A1c (05/21/2024 4:20 PM NUT TAPPER) Hgb A1C 8.7(H) 4.0 - 5.6 % Estimated Average Glucose 203 mg/dL [facility] Comment: The ADA recommends reporting an estimated Average Glucose (eAG) with all Hemoglobin A1c results using the equation derived from a study of 507 normal and diabetic adults. Minority populations were underrepresented and children were not included. (Diabetes Care 2020; 43(S1): S66-S76). The eAG is not equivalent to a fasting glucose. Blood 05/21/2024 4:20 PM NUT TAPPER 05/21/2024 4:55 PM NUT TAPPER us Leo Henry MD LAB BLOOD ORDERABLES Final Result [facility] Department [place] [address] * (ABNORMAL) Lipid panel (05/21/2024 4:20 PM NUT TAPPER) Cholesterol 205(H) 30 - 199 mg/dL Comment: [...] Triglycerides 92 <=149 mg/dL [facility] Comment: Interpretive Data Ages < or [...] HDL 55 >=40 mg/dL [facility] Comment: Interpretive Data Ages < or [...] calculated 134(H) <=129 mg/dL [facility] Comment: Interpretive Data Ages < or [...] on 2023. Non-HDL Cholesterol 150 mg/dL [facility] Comment: Interpretive Data Ages < or [...] revised on 2017. Chol/HDL ratio 4 [facility] Blood 05/21/2024 4:20 PM NUT TAPPER 05/21/2024 4:50 PM NUT TAPPER Narrative [facility] - 05/22/2024 4:17 PM NUT TAPPER Reflex us Leo Henry MD LAB BLOOD ORDERABLES Final Result [facility] Department [place] [address] * Dexa Axial Skeleton Bone Density 1 or 2 Site (08/02/2022 10:53 AM CDT) Anatomical Region Laterality Modality Body N/A Radiographic Lizeth ging Narrative 08/02/2022 3:34 PM CDT Patient Name: Karly Marques Date of : 1955 Date of scan: 08/02/2022 Bone mineral density was performed on a HoloUbersense Discovery Densitometer. Based on machine cross-calibration and [...] by the International Society of Clinical Densitometry. [id number] us Khris Arthur MD IMG DXA PROCEDURES [...] agrees with it. ACC# Date Time Exam [id number] Aug 19, 2016 14:27:00 [facility] [id number] D[employer] Mamm, inc CAD, unilat L Technologist(s): Carla Harris; ; [id number] Aug 19, 2016 15:39:00 [facility] [id number] Breast US unilateral, ltd L ACC# Date Time Exam [id number] Aug 19, 2016 14:27:00 [facility] [id number] [employer] CAD, unilat L Technologist(s): Carla Harris; ; [id number] Aug 19, 2016 15:39:00 [facility] [id number] Breast US unilateral, ltd L EXAMINATION: LEFT [...] SARABIA M.D. on Aug 19 2016 4:20P [id number] Procedure Note Miscellaneous, Not In File / Provider, MD Tyler - 09/17/2016 ANTHONY SARABIA M.D. JUDY RINCON M.D. FINAL REPORT The radiology attending physician has personally reviewed this study, and has reviewed and/or edited this written report and agrees with it. ACC# Date Time Exam [id number] Aug 19, 2016 14:27:00 [facility] [id number] Diag Mamm, inc CAD, unilat L Technologist(s): Carla Harris; ; [id number] Aug 19, 2016 15:39:00 [facility] [id number] Breast US unilateral, ltd L ACC# Date Time Exam [id number] Aug 19, 2016 14:27:00 [facility] [id number] Diag Mamm, inc CAD, unilat L Technologist(s): Carla Harris; ; [id number] Aug 19, 2016 15:39:00 [facility] [id number] Breast US unilateral, ltd L EXAMINATION: LEFT [...] SARABIA M.D. on Aug 19 2016 4:20P [id number] us Not In File Miscellaneous IMG MAMMO PROCEDURES F inal Result from Last 3 Months or Most Recently Relevant to Health Maintenance Insurance [employer] [facility] MEDICARE ADVANTAGE [facility] MEDICARE Address[facility] [address] [place] [address] [facility] MEDICARE ADVANTAGE [facility] MEDICARE ADVANTAGE [facility] MEDICARE Address: [address] [address] [place] [address] Advance Directives For more information, please contact: [phone] Documents on File Type Date Recorded Patient Hothouse Worker Expl anation ADVANCE DIRECTIVE 12/23/2021 2:49 PM Power of Medical Review Coordinator-Medical ADVANCE DIRECTIVE 12/23/2021 2:49 PM Living Will [...] Agents on File Name Relationship Healthcare Agent [facility] Yunior Marques Daughter Health Care Agent Jimmie Marques Spouse First Alternate Health Care Agent Care Teams Table Keeper Relationship Specialty Start Date End Date Justen Gale MD [address] [facility] [address] [place] [address] PCP - General 10/09/17 Liu Jerez MD Consulting Physician Gastroenterology 07/28/17 [place] [address] [facility] [address] [place] [address] Consulting Physician Pulmonary Disease 08/03/17 [place] [address] [place] [address] [address] [place] [address] Medical Oncologist/Top Steep Tender Medical Oncology 10/23/17 [place] [address] [facility] [address] [place] [address] Surgeon Orthopedic Surgery 10/23/17 [place] [address] [address] Consulting Physician Pain Management 10/23/17 [place] [address] [address] Referring Physician General Surgery 01/26/18 [place] [address] [facility] [address] [place] [address] Consulting Physician Neurology 01/26/18
--- OUTSIDE RECORDS SUMMARY | 2024-11-15 15:22 | XMS_ITS | Encounter Summary ---
Author Organization [facility] Address [address] [place] [address] Phone Care Team Providers Care Warehouse Receiver Name Role Phone Justen Gale MD Primary Care Provider David Roberts APRN, POTATO PANCAKE FRIER Unavailable Annel Rod MD Unavailable Reason for Visit * Reason Comments Medication Refill Encounter Details Date Type Department Care Team (Late st Contact Info) Description 02/07/2020 Refill [facility] Call Center [address] [place] [address] Justen Gale MD #[address] [address] Medication Refill Social History Tobacco Use Types [...] Group - Endocrinology [facility] #[address] [place] [address] Annel Rod MD #[address] [address] documented as of this encounter Visit Diagnoses Not on filedocumented in this encounter Additional Health Concerns Infection Onset Date Last Indicated Resolved Time COVID - 19 08/01/2024 08/01/2024 08/01/2024 3:20 PM CDT Assessment Noted Time PHQ-9 Depression Total Score: 0 09/08/19 19 1:00 PM CDT documented as of this encounter Care Teams Warehouse Receiver Relationship Specialty Start Date End Date Justen Gale MD #2 [facility] [address] [place] [address] PCP - General Family Medicine 10/17/17 David Roberts, AUDIO VISUAL FACILITIES ENGINEER, POTATO PANCAKE FRIER [address] [place] [address] Nurse Practitioner Advanced Practice Nurse 01/31/22 Annel Rod MD #[address] [address] Consulting Physician Endocrinology 07/01/22 documented as of this encounter
--- OUTSIDE RECORDS SUMMARY | 2024-11-15 15:22 | XMS_ITS | Encounter Summary ---
Author Organization [facility] Address [address] [place] [address] Phone Care Team Providers Care Commercial Portfolio Manager Name Role Phone Justen Gale MD Primary Care Provider David Roberts APRN, SKIP PITMAN Unavailable Annel Rod MD Unavailable Reason for Visit * Reason Comments Medication Refill Encounter Details Date Type Department Care Team (Late st Contact Info) Description 03/13/2021 Refill [facility] [address] [place] [address] Justen Gale MD #[address] [address] Medication Refill Social History Tobacco [...] COVID-19? No / Unsure 03/02/2021 5:05 PM GROUNDS/MAINTENANCE SPECIALIST documented as of this encounter Plan of Treatment Upcoming Encounters Date Type Department Care Team (Late st Contact Info) Description 11/19/2024 2:00 PM CDT Office Visit [facility] - Endocrinology - [place] [address] [place] [address] Annel Rod MD #2 [facility] [address] [place] [address] documented as of this encounter Visit Diagnoses Not on filedocumented in this encounter Additional Health Concerns Infection Onset Date Last Indicated Resolved Time COVID - 19 08/01/2024 08/01/2024 08/01/2024 3:20 PM CDT Assessment Noted Time PHQ-9 Depression Total Score: 0 07/21/19 21 3:00 PM CDT documented as of this encounter Care Teams Commercial Portfolio Manager Relationship Specialty Start Date End Date Justen Gale MD #2 [facility] [address] [place] [address] PCP - General Family Medicine 10/17/17 David Roberts, HEAVY EQUIPMENT PLUMBING SUPERVISOR, SKIP PITMAN #2 [place] [address] Nurse Practitioner Advanced Practice Nurse 01/31/22 Annel Rod MD #[address] [address] Consulting Physician Endocrinology 07/01/22 documented as of this encounter
--- OUTSIDE RECORDS SUMMARY | 2024-11-15 15:22 | XMS_ITS ---
Author Organization [facility] Address [address] [place] [address] Care Team Providers Care Engineer Geophysical Laboratory Name Role Phone Liu Jerez MD Unavailable Albert Corbin MD Unavailable [phone] Justen Gale MD Primary Care Provider [phone] Khris Arthur MD Unavailable [phone] Ko Melendez MD Unavailable [phone] John Paul Moyer MD Unavailable [phone] Annel Rod MD Unavailable Anali MARSHALL MD, Carlos M. Unavailable Active Problems Problem Noted Date Diagnosed Date Urinary tract infection 05/22/2024 Assessment & Plan (05/26/2024 10:08 AM CASTING AGENT): Presenting with urinary symptoms of right flank [...] 05/22/2024 Assessment & Plan (05/25/2024 7:52 AM CASTING AGENT): Hx of breast cancer c/b DVT/bilateral Pes [...] 05/22/2024 Assessment & Plan (05/22/2024 1:14 PM CASTING AGENT): -long-standing chronic back pain -CT L spine [...] 09/12/2021 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) 2021 shelter (current) use 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 inhibitors 10/17/2019 Thyroid [...] complication, without long-term current use of insulin ([facility]) 10/23/2017 Assessment & Plan (10/23/2017 2:06 AM [...] 10/13/2017 Assessment & Plan (05/22/2024 12:29 PM CASTING AGENT): -Hx stage II, ER positive, HER2 negative [...] 08/01/2017 Assessment & Plan (05/22/2024 12:33 PM CASTING AGENT): -Hx LUL -Hospital provided CPAP ordered History of DVT (deep vein thrombosis) 08/01/2017 History of pulmonary embolism 08/01/2017 Generalized weakness 07/27/2017 Dyspnea 07/27/2017 Unintentional weight loss 07/27/2017 Acute cystitis without hematuria 07/27/2017 Nausea and vomiting 07/26/2017 Overview (07/28/2017): Added automatically from request for surgery [id number] Pulmonary embolism 08/09/2016 Assessment & Plan (10/23/2017 2:05 AM CDT): On Rivaroxaban Lymphedema of left upper extremity 08/09/2016 Assessment & Plan (05/25/2024 7:53 AM CASTING AGENT): S/p L axillary lymph node dissection 2014, [...] syndrome Assessment & Plan (05/22/2024 11:18 AM CASTING AGENT): -continue home Requip 5mg nightly Pain of lower extremity 03/12/2013 Overview (07/29/2016): Leg pain Essential hypertension Assessment & Plan (05/23/2024 10:42 AM CASTING AGENT): -Chart history of HTN but not on meds -BP elevated on admission, likely some pain contributing -Monitor closely once pain under adequate control, discussed following up with PCP for this Chronic anticoagulation Restless leg syndrome 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 Type 2 diabetes mellitus without complication Assessment & Plan (05/24/2024 1:39 PM CASTING AGENT): -Last Ha1c 8.4 in 2023, repeat 8.7 [...] female breast, unspecified estrogen receptor status (HCC)termite control technician (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
--- OUTSIDE RECORDS SUMMARY | 2024-11-15 15:22 | XMS_ITS | Encounter Summary ---
Author Organization [facility] Address [address] [place] [address] Phone Care Team Providers Care Event Lighting Specialist Name Role Phone Justen Gale MD Primary Care Provider [phone] David Roberts APRN, ENGINEERING SYSTEMS ANALYST Unavailable Annel Rod MD Unavailable Reason for Visit * Reason Comments Medication Refill Encounter Details Date Type Department Care Team (Late st Contact Info) Description 02/17/2021 Refill [facility] #2 [place] [id number] Justen Gale MD #[address] [address] Medication Refill Social History Tobacco Use Types [...] [place] 06/05/20 Office Visit Pili Elkins APRN, ENGINEERING SYSTEMS ANALYST [facility] Showing recent visits within past 365 days and meeting all other requirements Future Appointments Date Type Provider Dept 03/02/21 Appointment Vince Hermosillo MD [facility] Showing future appointments within next 90 days and meeting all other requirements documented in this encounter Plan of Treatment Upcoming Encounters Date Type Department Care Team (Late st Contact Info) Description 11/19/2024 2:00 PM CDT Office Visit [facility] Endocr[facility]ology - [place] #2 [place] [address] Annel Rod MD #[address] [address] documented as of this encounter Visit Diagnoses Not on filedocumented in this encounter Additional Health Concerns Infection Onset Date Last Indicated Resolved Time COVID - 19 08/01/2024 08/01/2024 08/01/2024 3:20 PM CDT Assessment Noted Time PHQ-9 Depression Total Score: 0 07/21/19 3:00 PM CDT documented as of this encounter Care Teams Event Lighting Specialist Relationship Specialty Start Date End Date Justen Gale MD #2 [facility] [address] [place] [address] PCP - General Family Medicine 10/17/17 David Roberts APRN, ENGINEERING SYSTEMS ANALYST #2 [place] [address] Nurse Practitioner Advanced Practice Nurse 01/31/22 Annel Rod MD #[address] [address] Consulting Physician Endocrinology 07/01/22 documented as of this encounter
--- OUTSIDE RECORDS SUMMARY | 2024-11-15 15:22 | XMS_ITS | Patient Health Record ---
Author Organization [facility] Address [address] [facility] [address] [facility] [address] [place] [address] Care Team Providers Care Cooker Soda Name Role Phone Yo DURÁN, Lavonne Primary Care Provider Unavail able Reason For Referral No Information Plan Of Treatment No Information Insurance Providers Payer Name Payer Address Payer Phone Subscriber Number Group Number Insured Name Patient Relationship to Insured Coverage Start Date Coverage End Date [facility] [employer] [address] [address] [place], [place] [id number] Karly Marques Self - patient is the insured
--- OUTSIDE RECORDS SUMMARY | 2024-11-15 15:22 | XMS_ITS | Encounter Summary ---
Author Organization [facility] Address [address] [place] [address] Phone Care Team Providers Care Dictating Machine Mechanic Name Role Phone Justen Gale MD Primary Care Provider David Roberts APRN, CISCO CERTIFIED NETWORK ASSOCIATE Unavailable [phone] Annel Rod MD Unavailable Encounter Details Date Type Department Care Team (Late st Contact Info) Description 06/05/2020 [facility] [address] [place] [address] Pili Elkins APRN, CISCO CERTIFIED NETWORK ASSOCIATE #[address] [address] Frequency of micturition Social History [...] COVID-19? No / Unsure 2020 11:37 AM PIN INSERTER documented as of this encounter Plan of Treatment Upcoming Encounters Date Type Department Care Team (Late st Contact Info) Description 11/19/2024 2:00 PM CDT Office Visit [facility] - [place] #2 [place] [address] Annel Rod MD #[address] [address] documented as of this encounter Procedures Procedure Name Priority Date/Time Associated Diagnosis Comments URINALYSIS REFLEX IF INDICATED BY ABNORMAL RESULTS Routine 06/05/2020 4:45 PM PIN INSERTER Frequency of micturition documented in this encounter Results * (ABNORMAL) URINALYSIS REFLEX IF INDICATED BY ABNORMAL RESULTS (06/05/2020 4:45 PM PIN INSERTER) SPECIFIC GRAVITY 1.020 1.003 - 1.030 06/05/2020 5:19 PM PIN INSERTER [facility] URINE PH 5.0 5.0 - 9.0 06/05/2020 5:19 PM PIN INSERTER [facility] WBC ESTERASE Negative Negative 06/05/2020 5:19 PM PIN INSERTER [facility] NITRITE Negative Negative 06/05/2020 5:19 PM PIN INSERTER [facility] PROTEIN, RANDOM URINE Negative Negative 06/05/2020 5:19 PM PIN INSERTER [facility] URINE GLUCOSE, QUAL Negative Negative 06/05/2020 5:19 PM PIN INSERTER [facility] URINE KETONES Negative Negative 06/05/2020 5:19 PM PIN INSERTER [facility] UROBILINOGEN Normal Normal mg/dL 06/05/2020 5:19 PM PIN INSERTER [facility] URINE BILIRUBIN Negative Negative 5:19 PM PIN INSERTER [facility] URINE BLOOD 25 /uL(A) Negative leandro/ul 06/05/2020 5:19 PM PIN INSERTER [facility] URINALYSIS COLOR Yellow 06/05/19 5:19 PM PIN INSERTER [facility] URINALYSIS CLARITY Clear 06/05/2020 5:19 PM PIN INSERTER [facility] WBC (Urine) 0-5 Negative, 0-5 /hpf 06/05/2020 5:19 PM PIN INSERTER [facility] URINE RBC'S 3-5(A) Negative, 0-2 /hpf 06/05/2020 5:19 PM PIN INSERTER [facility] EPITHELIAL CELLS Small amount /lpf 2020 5:19 PM PIN INSERTER [facility] BACTERIA, URINE Few(A) Negative /hpf 06/05/2020 5:19 PM PIN INSERTER [facility] Urine URINE SPECIMEN / Unknown Non-Phlebotomy Collection / Unknown 06/05/2020 4:45 PM PIN INSERTER 06/05/2020 5:00 PM PIN INSERTER us Pili Elkins APRN, CNP URINE ORDERABLES Fin al Result [facility] #1 [facility] [place] [address] documented in this encounter Visit Diagnoses Diagnosis Frequency of micturition Urinary frequency documented in this encounter Additional Health Concerns Infection Onset Date Last Indicated Resolved Time COVID - 19 08/01/2024 08/01/2024 08/01/2024 3:20 PM CDT Assessment Noted Time PHQ-9 Depression Total Score: 0 09/08/19 1:00 PM CDT documented as of this encounter Care Teams Dictating Machine Mechanic Relationship Specialty Start Date End Date Justen Gale MD #[address] [address] PCP - General Family Medicine 10/17/17 David Roberts APRN, CISCO CERTIFIED NETWORK ASSOCIATE #[address] [facility] [address] Nurse Practitioner Advanced Practice Nurse 01/31/22 Annel Rod MD #[address] [phone] Consulting Physician Endocrinology 07/01/22 documented as of this encounter
--- OUTSIDE RECORDS SUMMARY | 2024-11-15 15:22 | XMS_ITS | Encounter Summary ---
Author Organization [facility] Address [address] [place] [address] Phone Care Team Providers Care Braiding Machine Operator Name Role Phone Justen Gale MD Primary Care Provider David Roberts APRN, SHOP HAND Unavailable Annel Rod MD Unavailable Reason for Visit * Reason Onset Date Comments Medication Refill 08/06/2020 Encounter Details Date Type Department Care Team (Late st Contact Info) Description 08/06/2020 Refill [facility] #2 [facility] [phone] Justen Gale MD #[address] [address] Medication Refill Social History Tobacco Use Types [...] Outpatient Visits 2 weeks ago [facility] Pili Mueller APN, SHOP HAND 2 months ago Increased urinary frequency [facility] Pili Mueller APN, SHOP HAND 5 months ago Urinary frequency [facility] Pili Mueller APN, SHOP HAND 8 months ago Type 2 diabetes mellitus with diabetic polyneuropathy, with long- term current use of insulin (HCC) [facility] Pili Mueller APN, SHOP HAND 9 months ago Nausea [facility] Justen Urbano MD Upcoming Appointments Future Appointments In 6 days Pili Elkins APN, SHOP HAND [facility] MANDREL PRESS HAND - Recent and Past Visits Recent Visits Date Type Provider Dept 07/20/20 Office Visit Pili Elkins APN, SHOP HAND [facility] 06/05/20 Office Visit Pili Elkins APN, NETTA [facility] 02/17/20 Office Visit Pili Elkins APN, NETTA [facility] 12/03/19 Office Visit Pili Elkins APN, NETTA [facility] 11/05/19 Telemedicine Justen Gale MD [facility] 07/25/19 Telemedicine [facility] Show[facility] recent visits within past 460 days with a meds authorizing provider and meeting all other requirements Future Appointments Date Type Provider Dept 08/12/20 Appointment Pili Elkins APN, CNP [facility] Showing future appointments within next 90 days [...] Visit [facility] [place] [address] [place] [address] Annel Rod MD #[address] [place] [address] documented as of this encounter Visit Diagnoses Not on filedocumented in this encounter Additional Health Concerns Infection Onset Date Last Indicated Resolved Time COVID - 19 08/01/2024 08/01/2024 08/01/2024 3:20 PM CDT Assessment Noted Time PHQ-9 Depression Total Score: 0 07/21/19 21 3:00 PM CDT documented as of this encounter Care Teams Braiding Machine Operator Relationship Specialty Start Date End Date Justen Gale MD #2 [facility] [address] [place] [address] PCP - General Family Medicine 10/17/17 David Roberts, METAL FURRER, SHOP HAND #2 [place] [address] Nurse Practitioner Advanced Practice Nurse 01/31/22 Annel Rod MD #2 [facility] [address] [place] [address] Consulting Physician Endocrinology 07/01/22 documented as of this encounter
--- OUTSIDE RECORDS SUMMARY | 2024-11-15 15:22 | XMS_ITS | Encounter Summary ---
Author Organization [facility] Address [address] [place] [address] Phone Care Team Providers Care Video Specialist Name Role Phone Lavonne Hathawya MD Primary Care Provider + [phone] Liu Jerez MD Unavailable [phone] Albert Corbin MD Unavailable [phone] Justen Gale MD Primary Care Provider [phone] Lavonne Hathaway MD Primary Care Provider + [phone] Justen Gale MD Primary Care Provider [phone] Khris Arthur MD Unavailable [phone] Ko Melendez MD Unavailable [phone] John Paul Moyer MD Unavailable Annel Rod MD Unavailable Anali MARSHALL MD, Carlos M. Unavailable [phone] Encounter Details Date Type Department Care Team ([facility] Contact Info) Description 05/15/2017 Orders Only [facility] Scanning, Provider Social History Tobacco Use Types Packs/Day Years Used Date Smoking Tobacco: Former Alcohol Use Standard Drinks/Week Comments No 0 (1 standard drink = 0.6 oz pur e alcohol) Comments Unknown Sex and Gender Information Value Date Recorded Sex Assigned at Not on file Legal Sex Female 12:24 AM CHARGE ACCOUNT AUTHORIZER Gender Identity Not on file Sexual Orientation [...] COVID: Recovered 02/10/2022 02/10/2022 06/10/2022 3:05 AM CHARGE ACCOUNT AUTHORIZER Exposure, COVID-19 Comment:Added automatically based on COVID19 lab answers indicating exposure risk 02/11/2022 02/11/2022 02/15/2022 9:06 AM C DT COVID: Suspected 05/14/2022 05/14/2022 05/14/2022 10:41 AM CHARGE ACCOUNT AUTHORIZER COVID: Suspected 06/07/2022 06/07/2022 06/07/2022 12:28 PM CHARGE ACCOUNT AUTHORIZER COVID: Suspected 06/21/2022 06/21/2022 06/21/2022 2:12 AM CHARGE ACCOUNT AUTHORIZER COVID: Suspected 10/05/2022 10/05/2022 10/05/2022 7:40 PM CDT COVID: Suspected 01/04/2024 01/04/2024 01/04/2024 10:30 PM CDT COVID: Suspected 02/14/2024 02/14/2024 02/15/2024 12:36 AM CDT COVID: Suspected 07/01/2024 07/01/2024 07/01/2024 2:53 PM CDT COVID: Suspected 07/01/2024 07/01/2024 07/02/2024 3:05 AM CDT documented as of this encounter Care Teams Video Specialist Relationship Specialty Start Date End Date Lavonne Hathaway MD [address] [place] [address] [place] [address] PCP - General 08/16/16 08/17/17 Justen Gale MD [address] [place] [place] [address] [address] PCP - General 08/18/17 08/22/17 Lavonne Hathaway MD [address] [place] [address] [place] [address] PCP - General Family Medicine 08/23/17 10/08/17 Justen Gale MD 2 [facility] [address] [address] PCP - General 10/09/17 Liu Jerez MD [address] [place] [address] [place] [address] Consulting Physician Gastroenterology 07/28/17 [place] [address] [facility] [address] [place] [address] Consulting Physician Pulmonary Disease 08/03/17 Khris Arthur MD [address] [facility] [address] [place] [address] Medical Oncologist/Sand Caster Medical Oncology 10/23/17 [place] [address] [facility] [address] [place] [address] Surgeon Orthopedic Surgery 10/23/17 [place] [address] [facility] [address] [place] [address] Consulting Physician Pain Management 10/23/17 [place] [address] [facility] [address] [place] [address] Referring Physician General Surgery 01/26/18 [place] [address] [facility] [address] [place] [address] Consulting Physician Neurology 01/26/18 documented as of this encounter
--- OUTSIDE RECORDS SUMMARY | 2024-11-15 15:23 | XMS_ITS | Encounter Summary ---
Author Organization [facility] Address [address] [place] [address] Phone Care Team Providers Care Journeyman Electrician Name Role Phone Justen Gale MD Primary Care Provider [phone] David Roberts APRN, PREP PERSON Unavailable Annel Rod MD Unavailable Reason for Visit * Reason Comments Medication Refill Encounter Details Date Type Department Care Team (Late st Contact Info) Description 03/05/2023 Refill [facility] Family Medicine [facility] #2 [place] [address] Pili Elkins APRN, PREP PERSON #[address] [address] Medication Refill Social History [...] discontinued on 10/19/2022 by Justen Gale MD NG SPECIALIST documented in this encounter Plan of Treatment Upcoming Encounters Date Type Department Care Team (Late st Contact Info) Description 11/19/2024 2:00 PM CDT Office Visit [facility] - Endocrinology [facility] #2 [place] [address] Annel Rod MD #2 [facility] [address] [place] [address] documented as of this encounter Visit Diagnoses Diagnosis Essential hypertension Unspecified essential hypertension documented in this encounter Additional Health Concerns Infection Onset Date Last Indicated Resolved Time COVID - 19 08/01/2024 08/01/2024 08/01/2024 3:20 PM CDT Assessment Noted Time PHQ-9 Depression Total Score: 8 01/18/20 23 2:24 PM CDT documented as of this encounter Care Teams Journeyman Electrician Relationship Specialty Start Date End Date Justen Gale MD #2 [facility] [address] [place] [address] PCP - General Family Medicine 10/17/17 David Roberts APRN, PREP PERSON #2 [place] [address] Nurse Practitioner Advanced Practice Nurse 01/31/22 Annel Rod MD #[address] [address] Consulting Physician Endocrinology 07/01/22 documented as of this encounter
--- OUTSIDE RECORDS SUMMARY | 2024-11-15 15:23 | XMS_ITS | Encounter Summary ---
Author Organization [facility] Address [address] [place] [address] Phone Care Team Providers Care Lye Machine Operator Name Role Phone Justen Gale MD Primary Care Provider [phone] David Roberts APRN, STAFFING ADMINISTRATOR Unavailable [phone] Annel Rod MD Unavailable Reason for Visit * Reason Comments Medication Refill Encounter Details Date Type Department Care Team (Late st Contact Info) Description 02/07/2023 Refill [facility] #2 [place] [address] Catrina Quiñonez MD Medication Refill Social History Tobacco Use Types [...] Office Visit [facility] Office Visit Pili Elkins APRN, CNP [facility] [place] 07/05/22 Office Visit Pili Elkins APRN, NETTA [facility] [place] 05/02/22 Office Visit Justen Gale MD [facility] [place] 03/03/22 Office Visit Pili Elkins APRN, NETTA [facility] Showing recent visits within past 365 days and meeting all other requirements Future Appointments No visits were found meeting these conditions. Showing future appointments within next 90 days and meeting all other requirements documented in this encounter Plan of Treatment Upcoming Encounters Date Type Department Care Team (Late st Contact Info) Description 11/19/2024 2:00 PM CDT Office Visit [facility] - Endocrinology - [place] #2 [place] [address] Annel Rod MD #[address] [address] documented as of this encounter Visit Diagnoses Not on filedocumented in this encounter Additional Health Concerns Infection Onset Date Last Indicated Resolved Time COVID - 19 08/01/2024 08/01/2024 08/01/2024 3:20 PM CDT Assessment Noted Time PHQ-9 Depression Total Score: 8 01/18/20 2:24 PM CDT documented as of this encounter Care Teams Lye Machine Operator Relationship Specialty Start Date End Date Justen Gale MD #[address] [address] PCP - General Family Medicine 10/17/17 David Roberts APRN, STAFFING ADMINISTRATOR #2 [place] [address] Nurse Practitioner Advanced Practice Nurse 01/31/22 Annel Rod MD #[address] [address] Consulting Physician Endocrinology 07/01/22 documented as of this encounter
--- OUTSIDE RECORDS SUMMARY | 2024-11-15 15:23 | XMS_ITS | Encounter Summary ---
Author Organization [facility] Address [address] [place] [address] Phone Care Team Providers Care Fire Safety Director Name Role Phone Justen Gale MD Primary Care Provider [phone] David Roberts APRN, METAPHYSICS TEACHER Unavailable Annel Rod MD Unavailable Reason for Visit * Reason Comments Medication Refill Encounter Details Date Type Department Care Team (Late st Contact Info) Description 07/06/2023 Refill [facility] #2 [place] [address] Justen Gale MD #[address] [address] Medication Refill Social History Tobacco Use Types [...] CDT Medication[facility]) [facility] Medication Refill Standing Order for [...] Dept 06/27/23 Office Visit Justen Gale MD [facility] 01/17/23 Office Visit Catrina Quiñonez MD [facility] Showing recent visits within past 270 [...] Endocrinology - [place] #[address] [place] [address] Annel Rod MD #[address] [place] [address] documented as of this encounter Visit Diagnoses Not on filedocumented in this encounter Additional Health Concerns Infection Onset Date Last Indicated Resolved Time COVID - 19 08/01/2024 08/01/2024 08/01/2024 3:20 PM CDT Assessment Noted Time PHQ-9 Depression Total Score: 8 01/18/20 2:24 PM CDT documented as of this encounter Care Teams Fire Safety Director Relationship Specialty Start Date End Date Justen Gale MD #2 [facility] [address] [place] [address] PCP - General Family Medicine 10/17/17 David Roberts APRN, METAPHYSICS TEACHER #2 [place] [address] Nurse Practitioner Advanced Practice Nurse 01/31/22 Annel Rod MD #2 [facility] [address] [place] [address] Consulting Physician Endocrinology 07/01/22 documented as of this encounter
--- OUTSIDE RECORDS SUMMARY | 2024-11-15 15:23 | XMS_ITS | Encounter Summary ---
Author Organization [facility] Address [address] [place] [address] Phone Care Team Providers Care Publication Distributor Name Role Phone Justen Gale MD Primary Care Provider [phone] David Roberts APRN, BOTTOM TURNING LATHE TENDER Unavailable [phone] Annel Rod MD Unavailable Reason for Visit * Reason Comments Medication Refill Encounter Details Date Type Department Care Team (Late st Contact Info) Description 07/12/2022 [facility]ill [facility] #2 [place] [address] Justen Gale MD #[address] [address] Medication Refill Social History Tobacco Use Types [...] 07/05/22 Office Visit Pili Elkins APRN, NETTA [facility] [place] 05/02/22 Office Visit Justen Gale MD [facility] [place] 03/03/22 Office Visit Pili Elkins APRN, BOTTOM TURNING LATHE TENDER [facility] [place] 01/03/22 Office Visit Dannielle Berg PAC [facility] [place] 12/07/21 Office Visit Pili Elkins APRN, NETTA [facility] [place] 11/09/21 Office Visit Pili Elkins APRN, NETTA [facility] [place] 10/08/21 Office Visit Angelito Alegria APRN, NETTA [facility] [place] 08/30/21 Office Visit [facility] Showing recent visits within past 365 [...] Visit [facility] - Endocrinology [facility] #2 [place] [address] Annel Rod MD #[address] [address] documented as of this encounter Visit Diagnoses Not on filedocumented in this encounter Additional Health Concerns Infection Onset Date Last Indicated Resolved Time COVID - 19 08/01/2024 08/01/2024 08/01/2024 3:20 PM CDT Assessment Noted Time PHQ-9 Depression Total Score: 0 07/21/19 21 3:00 PM CDT documented as of this encounter Care Teams Publication Distributor Relationship Specialty Start Date End Date Justen Gale MD #[address] [address] PCP - General Family Medicine 10/17/17 David Roberts APRN, BOTTOM TURNING LATHE TENDER #2 [place] [address] Nurse Practitioner Advanced Practice Nurse 01/31/22 Annel Rod MD #[address] [address] Consulting Physician Endocrinology 07/01/22 documented as of this encounter
--- OUTSIDE RECORDS SUMMARY | 2024-11-15 15:23 | XMS_ITS | Encounter Summary ---
Author Organization [facility] Address [address] [place] [address] Phone Care Team Providers Care Antisqueak Filler Name Role Phone Justen Gale MD Primary Care Provider David Roberts APRN, SENIOR ANALYTIC CONSULTANT Unavailable [phone] Annel Rod MD Unavailable Reason for Visit * Reason Comments Medication Refill Encounter Details Date Type Department Care Team (Late st Contact Info) Description 03/02/2023 Refill [facility] - Family [facility] #2 [place] [phone] Justen Gale MD #[address] [address] Medication Refill Social History Tobacco Use Types [...] Tamika Villarreal RN - 03/02/2023 8:51 AM HARVEST MANAGER Medication failed the protocol, provider to [...] Dept 01/17/23 Office Visit Catrina Quiñonez MD [facility] 09/16/22 Office Visit Pili Elkins APRN, CNP [facility] 07/05/22 Office Visit Pili Elkins APRN, NETTA [facility] 05/02/22 Office Visit Justen Gale MD [facility] 03/03/22 Office Visit Pili Elkins APRN, NETTA [facility] Showing recent visits within past 365 days and meeting all other requirements Future Appointments No visits were found meeting these conditions. Showing future appointments within next 90 days and meeting all other requirements EST MANAGER documented in this encounter Plan of Treatment Upcoming Encounters Date Type Department Care Team (Late st Contact Info) Description 11/19/2024 2:00 PM CDT Office Visit [facility] - Endocr[facility]ology - [place] #2 [place] [address] Annel Rod MD #[address] [address] documented as of this encounter Visit Diagnoses Not on filedocumented in this encounter Additional Health Concerns Infection Onset Date Last Indicated Resolved Time COVID - 19 08/01/2024 08/01/2024 08/01/2024 3:20 PM CDT Assessment Noted Time PHQ-9 Depression Total Score: 8 01/18/20 2:24 PM CDT documented as of this encounter Care Teams Antisqueak Filler Relationship Specialty Start Date End Date Justen Gale MD #2 [facility] [address] [place] [address] PCP - General Family Medicine 10/17/17 David Roberts APRN, NETTA #2 [place] [address] Nurse Practitioner Advanced Practice Nurse 01/31/22 Annel Rod MD #2 [facility] [address] [place] [address] Consulting Physician Endocrinology 07/01/22 documented as of this encounter
--- OUTSIDE RECORDS SUMMARY | 2024-11-15 15:23 | XMS_ITS | Encounter Summary ---
Author Organization [facility] Address [address] [place] [address] Phone Care Team Providers Care Associate Store Leader Name Role Phone Justen Gale MD Primary Care Provider David Roberts APRN, JEWELRY MAKING INSTRUCTOR Unavailable [phone] Annel Rod MD Unavailable Reason for Visit * Reason Comments Medication Refill Encounter Details Date Type Department Care Team (Late st Contact Info) Description 08/30/2022 Refill [facility] - Family Medicine [facility] #2 [place] [address] Justen Gale MD #[address] [address] Medication Refill Social History Tobacco Use Types [...] [place] 05/02/22 Office Visit [facility] MD [facility] [place] 03/03/22 Office Visit Pili Elkins APRN, NETTA [facility] [place] 01/03/22 Office Visit Dannielle Berg PAC [facility] [place] 12/07/21 Office Visit Pili Elkins APRN, NETTA [facility] [place] 11/09/21 Office Visit Pili Elkins APRN, NETTA [facility] [place] 10/08/21 Office Visit Angelito Alegria APRN, NETTA [facility] [place] 08/30/21 Office Visit [facility] Show[facility] visits within [...] Visit [facility] - [facility] - [place] [address] [place] [address] Annel Rod MD #2 [facility] [address] [place] [address] documented as of this encounter Visit Diagnoses Not on filedocumented in this encounter Additional Health Concerns Infection Onset Date Last Indicated Resolved Time COVID - 19 08/01/2024 08/01/2024 08/01/2024 3:20 PM CDT Assessment Noted Time PHQ-9 Depression Total Score: 0 07/21/19 3:00 PM CDT documented as of this encounter Care Teams Associate Store Leader Relationship Specialty Start Date End Date Justen Gale MD #[address] [address] PCP - General Family Medicine 10/17/17 David Roberts, COOKY PACKER, JEWELRY MAKING INSTRUCTOR #2 [facility] [address] Nurse Practitioner Advanced Practice Nurse 01/31/22 Annel Rod MD #[address] [address] Consulting Physician Endocrinology 07/01/22 documented as of this encounter
--- OUTSIDE RECORDS SUMMARY | 2024-11-15 15:23 | XMS_ITS | Encounter Summary ---
Author Organization [facility] Address [address] [place] [address] Phone Care Team Providers Care Fish Stringer Assembler Name Role Phone Justen Gale MD Primary Care Provider David Roberts APRN, ANIMAL SHELTER MANAGER Unavailable Annel Rod MD Unavailable Reason for Visit * Reason Comments Medication Refill Encounter Details Date Type Department Care Team (Late st Contact Info) Description 02/07/2023 Refill [facility] - Family Medicine [facility] #2 [place] [address] Pili Elkins APRN, ANIMAL SHELTER MANAGER #[address] [address] Medication Refill Social History Tobacco [...] Visit [facility] - Endocrinology - [place] #2 [place] [address] Annel Rod MD #[address] [address] documented as of this encounter Visit Diagnoses Diagnosis Essential hypertension Unspecified essential hypertension documented in this encounter Additional Health Concerns Infection Onset Date Last Indicated Resolved Time COVID - 19 08/01/2024 08/01/2024 08/01/2024 3:20 PM CDT Assessment Noted Time PHQ-9 Depression Total Score: 8 01/18/20 23 2:24 PM CDT documented as of this encounter Care Teams Fish Stringer Assembler Relationship Specialty Start Date End Date Justen Gale MD #2 [facility] [address] [place] [address] PCP - General Family Medicine 10/17/17 David Roberts APRN, ANIMAL SHELTER MANAGER #[address] [place] [address] Nurse Practitioner Advanced Practice Nurse 01/31/22 Annel Rod MD #[address] [phone] Consulting Physician Endocrinology 07/01/22 documented as of this encounter
--- OUTSIDE RECORDS SUMMARY | 2024-11-15 15:23 | XMS_ITS | Encounter Summary ---
Author Organization [facility] Address [address] [place] [address] Phone Care Team Providers Care High Worker Name Role Phone Justen Gale MD Primary Care Provider [phone] David Roberts APRN, HYDRAULIC ROCKBREAKER OPERATOR Unavailable Annel Rod MD Unavailable Reason for Visit * Reason Comments Medication Refill Encounter Details Date Type Department Care Team (Late st Contact Info) Description 07/14/2022 Refill [facility] - Family Medicine [facility] #2 [place] [address] Justen Gale MD #[address] [address] Medication Refill Social History Tobacco Use Types [...] [facility] - Endocrinology - [place] #2 [place] [address] Annel Rod MD #2 [facility] [address] [place] [address] documented as of this encounter Visit Diagnoses Not on filedocumented in this encounter Additional Health Concerns Infection Onset Date Last Indicated Resolved Time COVID - 19 08/01/2024 08/01/2024 08/01/2024 3:20 PM CDT Assessment Noted Time PHQ-9 Depression Total Score: 0 07/21/19 3:00 PM CDT documented as of this encounter Care Teams High Worker Relationship Specialty Start Date End Date Justen Gale MD #2 [facility] [address] [place] [address] PCP - General Family Medicine 10/17/17 David Roberts APRN, HYDRAULIC ROCKBREAKER OPERATOR #2 [place] [address] Nurse Practitioner Advanced Practice Nurse 01/31/22 Annel Rod MD #[address] [address] Consulting Physician Endocrinology 07/01/22 documented as of this encounter
--- OUTSIDE RECORDS SUMMARY | 2024-11-15 15:24 | XMS_ITS | Encounter Summary ---
Author Organization [facility] Address [address] [place] [address] Phone Care Team Providers Care Cut Off Worker Name Role Phone Justen Gale MD Primary Care Provider [phone] David Roberts APRN, STEWARDESS SUPERVISOR Unavailable [phone] Annel Rod MD Unavailable Reason for Visit * Reason Onset Date Comments Sore Throat 09/02/2024 Encounter Details Date Type Department Care Team (Late st Contact Info) Description 09/02/2024 Nurse Triage [facility] [address] [place] [address] Justen Gale MD #[address] [address] Sore Throat Social History Tobacco Use Types Packs/Day Years Used Date Smoking Tobacco: Never Smokeless Tobacco: Never Alcohol Use Standard Drinks/Week Comments No 0 (1 standard drink = 0.6 oz pur e alcohol) [facility] Utilities Answer Date Recorded In [...] in the past 12 m [facility], were you homeless or living [...] Pharmacy, medications, and allergies reviewed. Discussed utilizing [facility] to: discuss if they would prefer a [facility] message or phone call response - See [...] Ulcers - Caller Reports Outcome: Transfer to tester printed circuit boards queue Reason: Caller denied all higher acuity questions The caller accepted this outcome. Caller Denied: * Struggling for each breath (severe trouble breathing) * Can't swallow saliva (drooling) documented in this encounter Plan of Treatment Upcoming Encounters Date Type Department Care Team (Late st Contact Info) Description 11/19/2024 2:00 PM CDT Office Visit [facility] - Endocrinology - [place] #2 [place] [address] Annel Rod MD #[address] [address] documented as of this encounter Visit Diagnoses Not on filedocumented in this encounter Additional Health Concerns Assessment Noted Time PHQ-9 Depression Total Score: 0 08/02/19 25 1:09 PM CDT documented as of this encounter Care Teams Cut Off Worker Relationship Specialty Start Date End Date Justen Gale MD #[address] [address] PCP - General Family Medicine 10/17/17 David Roberts, OUTBOUND SALES EXECUTIVE, STEWARDESS SUPERVISOR #2 [place] [address] Nurse Practitioner Advanced Practice Nurse 01/31/22 Annel Rod MD #[address] [address] Consulting Physician Endocrinology 07/01/22 documented as of this encounter
--- OUTSIDE RECORDS SUMMARY | 2024-11-15 15:24 | XMS_ITS | Clinical Summary ---
Author Organization [facility] Address [address] [place] [address] Phone Care Team Providers Care Tank Welder Name Role Phone Justen Gale MD Primary Care Provider [phone] David Roberts APRN, [place] Unavailable Annel Rod MD Unavailable Allergies Active [...] current use of insulin ([facility]) Diagnosis: Diabetes Type 2 Blood testing frequency: 4 times a day 1 Each 11/22/19 18 Active Glucose Blood (ONE TOUCH ULTRA TEST) Strip Test four times daily. 400 Strip 3 02/11/20 20 Active Misc. Devices MiscIndication s:LUL (obstructive sleep apnea) Supply and instructions: 1 Each 09/10/19 21 Active OneTouch Delica Lancets 33G [facility] [place] Lancet by Does not apply route [...] Tablet by mouth. 12/28/19 24 Active Multiple Vitamins-[place] als (WOMENS MULTI PO) Take by mouth. [...] morning. 45 mL 1 10/18/19 25 Active Insulin Pen Needle (BD Pen Needle Short Ultrafine) 31G X 8 MM Misc USE 6 TIMES A DAY DIRECTED 300 Pen Needle 3 11/06/19 25 Active ondansetron (Zofran) 4 MG Tablet Take 1 Tablet by mouth every 8 hours as needed for Nausea - 1st line. 15 Tablet 11/08/19 25 Active predniSONE (DELTASONE) 5 MG TabletIndicati ons:Polymyalgi a rheumatica (HCC) Take 1.5 Tablets by mouth daily. 45 Tablet 11/16/19 Active B-D ULTRAFINE III SHORT PEN 31G X 8 MM Misc USE 6 TIMES DAILY DIRECTED 300 Pen Needle 1 06/16/19 23 2024 Discontinued ondansetron (Zofran) 4 MG Tablet Take 1 Tablet by mouth every 8 hours as needed for Nausea - 1st line. 15 Tablet 04/25/192024 Discontinued(R eorder) insulin glargine (Lantus SoloStar) 100 UNIT/ML Solution Pen-injector 40 Units by Subcutaneous route every morning. 30 mL 08/06/19 25 2024 Discontinued predniSONE (DELTASONE) 10 MG TabletIndicati ons:Polymyalgi a Rheumatica Take 1 Tablet by mouth daily. Do not stop taking until cleared by PCP office or real estate rep. Will need to taper off slowly. Indications: Polymyalgia Rheumatica 30 Tablet 10/01/19 25 2024 Discontinued(R eorder) predniSONE (DELTASONE) 10 MG TabletIndicati ons:Polymyalgi a Rheumatica Take 1 Tablet by mouth daily. Do not stop taking until cleared by PCP office or real estate rep. Will need to taper off slowly. Indications: Polymyalgia Rheumatica 30 Tablet 10/29/19 25 2024 Discontinued(D ose adjustment) Active Problems Problem Noted Date Diagnosed Date [...] Overview: Added automatically from request for surgery [id number] Lymphedema of left upper extremity 08/09/2016 Pulmonary embolism 08/09/2016 Overview (11/09/2017): Last Assessment & Plan: On Rivaroxaban Arthralgia of ankle 01/26/2015 Cellulitis of breast 11/11/2014 Encounters Date Type Department Care Team Description 11/14/2024 Telephone [facility] [address] [place] [phone] Justen Gale MD Follow-up 11/14/2024 Telephone [facility] [address] [place] [phone] Justen Gale MD 11/07/2024 Nurse Triage [address] [phone] Justen Gale MD Advice Only; Fatigue; Shortness of Breath 11/06/2024 MyChart RX Renewal [facility] [address] [place] [phone] Justen Gale MD Medication Renewal Declined 11/05/2024 [facility] [place] [phone] Justen Gale MD Medication Refill 10/28/2024 MyChart RX Renewal [facility] [address] [place] [phone] Justen Gale MD Medication Renewal Reviewed 10/17/2024 Refill [facility] #2 [place] [phone] Annel Rod MD Medication Refill 10/08/2024 Nurse Triage [address] [phone] Justen Gale MD Abdominal Pain 09/30/2024 MyChart RX Renewal [facility] [address] [place] [phone] Dulce Wolff, [place] [employer], [place] Medication Renewal Reviewed 09/29/2024 Nurse Triage [facility] Central Call [address] [phone] Justen Gale MD Urinary Tract Infection 09/23/2024 Nurse Triage [facility] Central Call [address] [phone] Justen Gale MD Breathing Problem; Pain 09/23/2024 [facility] [address] [place] [phone] Justen Gale MD Pain 09/11/2024 [facility] [address] [place] [phone] Justen Gale MD Follow-up 09/06/2024 1:15 PM CDT Office Visit [facility] [place] [address] Dulce Wolff, [place] [employer] Enlarged tonsils (Primary Dx); Polymyalgia rheumatica (HCC); Oral candidiasis; Edema, unspecified type Discharge Disposition: Discharged to home or Selfcare 09/06/2024 Travel 09/03/2024 Telephone [facility] [address] [place] [phone] Justen Gale MD Follow-up 09/02/2024 [facility] [address] [phone] Justen Gale MD Sore Throat 08/20/2024 1:15 PM CDT Office Visit [facility] [address] [place] [address] Justen Gale MD Acute maxillary sinusitis, recurrence not specified (Primary Dx) Discharge Disposition: Discharged to home or Selfcare 08/20/2024 Travel 08/19/2024 Telephone [facility] [address] [place] [address] Justen Gale MD Advice Only; Follow-up from Last 3 Months Immunizations Immunization Administration Dates Next Due Covid-19 Vaccine, Vector-nr, Rs-ad26, Pf, 0.5 Ml ([employer]) 06/29/2020 Influenza Vaccine greater than 3 yrs [...] 0.6 oz pur e alcohol) [facility] Desecur[employer]ities Answer Date Recorded In the past 12 months has [employer], [employer], oil, or water [employer] threatened to shut off services in your home? Yes 08/06/2024 Social Connection and Isolation Panel Answer Date Recorded In a typical week, how many times do you talk on the phone with family, friends, or neighbors? More than three times a week 08/06/2024 How often do you get togethe r with friends or relatives? Patient declined 08/06/2024 How often do you attend caro center or methodist services? More than 4 times [...] 1-9 0 07/23 [facility] - Occupational Stress Questionnaire Answer [...] Medical Group - Endocrinology - [place] #2 [place] [address] Annel Rod MD #[address] [address] Health Maintenance Due Date Last Done Comments [...] Additional history exists Influenza Immunization (#1) 2024 092 09/2022, 01/17/2023, 01/03/2022, Additional history exists Colonoscopy 01/08/2025 [...] - ABDOMEN/PELVIS 10/03/2024 1 2:00 AM CDT [id number] CONSULT 09/27/2024 12:00 AM CDT EXTERNAL ENT REFERRAL Routine 09/27/2024 12:00 AM CDT XR - CHEST 09/27/2024 12:00 AM CDT PAIN CONSULT 09/19/2024 12:00 AM CDT HEMOGLOBIN, A1C 10/02/2023 12:00 AM CDT HM COLONOSCOPY Routine 01/09/2020 AMB REFERRAL TO PODIATRY Routine 08/13/2019 POCT STOOL, OCCULT BLOOD, DIAGNOSTIC Routine 09/07/2018 1:20 PM CDT Generalized abdominal pain from Last 3 Months or Most Recently Relevant to Health Maintenance Results * URINALYSIS (UA) RANDOM (11/07/2024 12:00 AM CDT) 11/07/2024 us Provider Scan URINE ORDERABLES Final Result Performing Organization Address City/[facility]/ZIP Co de Phone Number SCAN * THYROID STIMULATING HORMONE (TSH) (11/07/2024 12:00 AM CDT) 11/07/2024 us Provider Scan CHEMISTRY ORDERABLES Final Resul t SCAN * APTT (PTT) (11/07/2024 12:00 AM CDT) 11/07/2024 us Provider Scan HEMATOLOGY ORDERABLES Final Resu lt Performing Organization Address [facility] de Phone Number SCAN * PROTIME (PT) (PROTHROMBIN TIME) (11/07/2024 12:00 AM CDT) INR 2.0 SCAN 11/07/2024 us Provider Scan HEMATOLOGY ORDERABLES Final Resu lt Performing Organization Address [facility] de Phone Number SCAN * MAGNESIUM (MG) (11/07/2024 12:00 AM CDT) 11/07/2024 us Provider Scan CHEMISTRY ORDERABLES Final Resul t Performing Organization Address [facility] Phone Number SCAN * LACTIC ACID (LACTATE) (11/07/2024 12:00 AM CDT) 11/07/2024 us Provider Scan CHEMISTRY ORDERABLES Final Resul t Performing Organization Address [facility] de Phone Number SCAN * CMP (COMPREHENSIVE METABOLIC PANEL) (11/07/2024 12:00 AM CDT) 11/07/2024 us Provider Scan CHEMISTRY ORDERABLES Final Resul t Performing Organization Address [facility] de Phone Number SCAN * COMPLETE BLOOD COUNT (CBC) WITH DIFF (11/07/2024 12:00 AM CDT) 11/07/2024 us Provider Scan HEMATOLOGY ORDERABLES Final Resu lt Performing Organization Address [facility] de Phone Number SCAN * B-TYPE NATRIURETIC PEPTIDE (BNP) (11/07/2024 12:00 AM CDT) 11/07/2024 us Provider Scan CHEMISTRY ORDERABLES Final Resul t Performing Organization Address [facility] de Phone Number SCAN * INTERNAL MEDICINE CONSULT (10/17/2024 12:00 AM CDT) Only the most recent of2 resultswithin the time period is included. 10/17/2024 us Provider Scan GENERIC SCAN ORDERS CONSULT Deann l Result Performing Organization Address [facility] de Phone Number SCAN * CT - ABDOMEN/PELVIS (10/15/2024 12:00 AM CDT) Only the most recent of4 resultswithin the time period is included. 10/15/2024 us Provider Scan IMG CT ORDERABLES Final Result Performing Organization Address [facility] de Phone Number SCAN * SURGERY CONSULT (10/12/2024 12:00 AM CDT) 10/12/2024 us Provider Scan GENERIC SCAN ORDERS CONSULT Deann l Result Performing Organization Address [facility] de Phone Number SCAN * CT - SPINE (10/06/2024 12:00 AM CDT) 10/06/2024 us Provider Scan IMG CT ORDERABLES Final Result Performing Organization Address [facility] de Phone Number SCAN * EXTERNAL ENT REFERRAL (09/27/2024 12:00 AM CDT) 09/27/2024 July N Oehl [place] [employer] OUTPT REFERRALS EXT/INT F inal Result Performing Organization Address [facility] de Phone Number SCAN * XR - CHEST (09/27/2024 12:00 AM CDT) 09/27/2024 us Provider Scan IMG DIAGNOSTIC ORDERABLES Final Result Performing Organization Address [facility] de Phone Number SCAN * HKG-YMIW-LZNIAB CONSULT (09/27/2024 12:00 AM CDT) 09/27/2024 us Provider Scan GENERIC SCAN ORDERS CONSULT Deann l Result Performing Organization Address [facility] de Phone Number SCAN * PAIN CONSULT (09/19/2024 12:00 AM CDT) 09/19/2024 Justen Gale MD GENERIC SCAN ORDERS CONSULT F inal Result Performing Organization Address [facility] de Phone Number SCAN * HEMOGLOBIN, A1C (10/02/2023 12:00 AM CDT) HGB-A1C 7.8 SCAN 10/02/2023 Provider Scan CHEMISTRY ORDERABLES Final Resul t Performing Organization Address [facility] de Phone Number SCAN * HM COLONOSCOPY (01/09/2020) Genaro Jensen DO PROCEDURE/MINOR SURGICAL ORDERA BLES Final Result * AMB REFERRAL TO PODIATRY (08/13/2019) Alvarez Mensah MD OUTPATIENT REFERRALS Final Res ult * POCT STOOL, OCCULT BLOOD, DIAGNOSTIC (09/07/2018 1:20 PM CDT) OCCULT BLOOD, STOOL Negative Negative, Other POC HEMOCULT CONTROL Governor Assembler Hydraulic Pass 09/07/2018 1:20 PM CDT Pili Elkins APRN, NETTA POINT OF CARE TESTIN G (MANUAL) Final Result from Last 3 Months or Most Recently Relevant to Health Maintenance Insurance MEDICAID [place] MEDICARE C [facility] Care Teams Tank Welder Relationship Specialty Start Date End Date Justen Gale MD #2 [facility] [address] [place] [address] PCP - General Family Medicine 10/17/17 David Roberts APRN, NETTA [address]2 [place] [address] Nurse Practitioner Advanced Practice Nurse 01/31/22 Annel Rod MD #2 [facility] [address] [place] [phone] Consulting Physician Endocrinology 07/01/22
--- OUTSIDE RECORDS SUMMARY | 2024-11-15 15:24 | XMS_ITS | Encounter Summary ---
Author Organization [facility] Address [address] [place] [address] Phone Care Team Providers Care Meter Calibrator Name Role Phone Justen Gale MD Primary Care Provider David Roberts APRN, UPPER DOUBLER Unavailable Annel Rod MD Unavailable Reason for Visit * Reason Comments Medication Refill Encounter Details Date Type Department Care Team (Late st Contact Info) Description 08/07/2023 Refill [facility] [place] #2 [place] [address] Annel Rod MD #[address] [address] Medication Refill Social History [...] Description 11/19/2024 2:00 PM CDT Office Visit [facility] - Endocrinology [facility] #2 [place] [address] Annel Rod MD #[address] [address] documented as of this encounter Visit Diagnoses Not on filedocumented in this encounter Additional Health Concerns Infection Onset Date Last Indicated Resolved Time COVID - 19 08/01/2024 08/01/2024 08/01/2024 3:20 PM CDT Assessment Noted Time PHQ-9 Depression Total Score: 8 01/18/20 23 2:24 PM CDT documented as of this encounter Care Teams Meter Calibrator Relationship Specialty Start Date End Date Justen Gale MD #[address] [address] PCP - General Family Medicine 10/17/17 David Roberts APRN, UPPER DOUBLER #2 [place] [address] Nurse Practitioner Advanced Practice Nurse 01/31/22 Annel Rod MD #[address] [address] Consulting Physician Endocrinology 07/01/22 documented as of this encounter
--- OUTSIDE RECORDS SUMMARY | 2024-11-15 15:24 | XMS_ITS | Encounter Summary ---
Author Organization [facility] Address [address] [place] [address] Phone Care Team Providers Care Appliquer Zigzag Name Role Phone Justen Gale MD Primary Care Provider [phone] David Roberts APRN, RECEPTION INTERVIEWER Unavailable Annel Rod MD Unavailable Reason for Visit * Reason Comments Medication Refill Encounter Details Date Type Department Care Team (Late st Contact Info) Description 04/13/2023 Refill [facility] - [place] #2 [place] [address] Annel Rod MD #[address] [address] Medication Refill Social History Tobacco [...] Jennifer Wang, RN - 04/14/2023 10:00 AM PRISONER CLASSIFICATION INTERVIEWER Requested Prescriptions Pending Prescriptions Disp Refills ??? Continuous Blood Gluc Sensor (FreeStyle Eileen 2 Sensor) Misc [Pharmacy Med Name: FREESTYLE EILEEN 2 SENSOR] 6 Each 1 Sig: APPLY 1 SENSOR AND WEAR FOR 14 DAYS TO CHECK BLOOD SUGAR Next appt: 05/30/2023 ONER CLASSIFICATION INTERVIEWER documented in this encounter Plan of Treatment Upcoming Encounters Date Type Department Care Team (Late st Contact Info) Description 11/19/2024 2:00 PM CDT [facility] Visit [facility] #2 [place] [address] Annel Rod MD #[address] [address] documented as of this encounter Visit Diagnoses Not on filedocumented in this encounter Additional Health Concerns Infection Onset Date Last Indicated Resolved Time COVID - 19 08/01/2024 08/01/2024 08/01/2024 3:20 PM CDT Assessment Noted Time PHQ-9 Depression Total Score: 8 01/18/20 23 2:24 PM CDT documented as of this encounter Care Teams Appliquer Zigzag Relationship Specialty Start Date End Date Justen Gale MD #[address] [address] PCP - General Family Medicine 10/17/17 David Roberts, ORGANIC PREPARATION TECHNICIAN, RECEPTION INTERVIEWER #2 [place] [address] Nurse Practitioner Advanced Practice Nurse 01/31/22 Annel Rod MD [address] [address] Consulting Physician Endocrinology 07/01/22 documented as of this encounter
--- OUTSIDE RECORDS SUMMARY | 2024-11-15 15:24 | XMS_ITS | Encounter Summary ---
Author Organization [facility] Address [address] [place] [address] Phone Care Team Providers Care Land Classifier Name Role Phone Justen Gale MD Primary Care Provider David Roberts APRN, MASTER BLACK BELT Unavailable [phone] Annel Rod MD Unavailable Reason for Visit * Reason Onset Date Comments Advice Only 08/19/2024 Follow-up 08/19/2024 Encounter Details Date Type Department Care Team (Late st Contact Info) Description 08/19/2024 Telephone [facility] - [facility] #2 [place] [address] Justen Gale MD [address] [address] Advice Only; Follow-up Social History Tobacco Use Types Packs/Day Years Used Date Smoking Tobacco: Never Smokeless Tobacco: Never Alcohol Use Standard Drinks/Week Comments No 0 (1 standard drink = 0.6 oz pur e alcohol) [facility] Utilities Answer Date Recorded In the [...] you attend chur ch or tenriism services? More than 4 times per year [...] Total Score - Questions 1-9 0 07/23 [facility] - Occupational Stress Questionnaire Answer Date [...] visit * Telephone Encounter - Angelito Alegria, ICER MACHINE OPERATOR, MASTER BLACK BELT - 08/19/2024 9:04 AM CDT Forwarding * Telephone Encounter - Iasura Weiss RN - 08/19/2024 8:37 AM CDT Situation: Strep throat follow up Background: Patient contacting PCP office. Patient was seen in ED on 08/09 and 08/12 in [place] (records in chart). Diagnosed with strep. Assessment: [...] CDT Symptom: Sore Throat Outcome: Transfer to blasting coal miner queue Reason: Caller denied all higher acuity questions The caller accepted this outcome. Caller Denied: * Struggling for each breath (severe trouble breathing) * Can't swallow saliva (drooling) documented in this encounter Plan of Treatment Upcoming Encounters Date Type Department Care Team (Late st Contact Info) Description 11/19/2024 2:00 PM CDT [facility] Visit [facility] [place] #2 [place] [phone] Annel Rod MD [address] [address] documented as of this encounter Visit Diagnoses Not on filedocumented in this encounter Additional Health Concerns Assessment Noted Time PHQ-9 Depression Total Score: 0 08/02/19 25 1:09 PM CDT documented as of this encounter Care Teams Land Classifier Relationship Specialty Start Date End Date Justen Gale MD #2 [facility] [address] [place] [address] PCP - General Family Medicine 10/17/17 David Roberts APRN, MASTER BLACK BELT #2 [place] [address] Nurse Practitioner Advanced Practice Nurse 01/31/22 Annel Rod MD #2 [facility] [address] [place] [address] Consulting Physician Endocrinology 07/01/22 documented as of this encounter
--- OUTSIDE RECORDS SUMMARY | 2024-11-15 15:24 | XMS_ITS | Encounter Summary ---
Author Organization [facility] Address [address] [place] [address] Phone Care Team Providers Care Gas Torch Solderer Name Role Phone Justen Gale MD Primary Care Provider David Roberts APRN, HOME MANAGEMENT SUPERVISOR Unavailable Annel Rod MD Unavailable Reason for Visit * Reason Onset Date Comments Advice Only 11/21/2023 Encounter Details Date Type Department Care Team (Late st Contact Info) Description 11/21/2023 Telephone [facility] [address] [place] [address] Justen Gale MD #[address] [address] Advice Only Social History Tobacco Use Types [...] Office Visit [facility] #2 [place] [address] Annel Rod MD #[address] [address] documented as of this encounter Visit Diagnoses Not on filedocumented in this encounter Additional Health Concerns Infection Onset Date Last Indicated Resolved Time COVID - 19 08/01/2024 08/01/2024 08/01/2024 3:20 PM CDT Assessment Noted Time PHQ-9 Depression Total Score: 8 01/18/20 23 2:24 PM CDT documented as of this encounter Care Teams Gas Torch Solderer Relationship Specialty Start Date End Date Justen Gale MD #[address] [address] PCP - General Family Medicine 10/17/17 David Roberts, MINE WEDGE SAWYER, HOME MANAGEMENT SUPERVISOR #2 [place] [address] Nurse Practitioner Advanced Practice Nurse 01/31/22 Annel Rod MD #[address] [phone] Consulting Physician Endocrinology 07/01/22 documented as of this encounter
--- OUTSIDE RECORDS SUMMARY | 2024-11-15 15:24 | XMS_ITS | Encounter Summary ---
Author Organization [facility] Address [address] [place] [address] Phone Care Team Providers Care Roll Reclaimer Name Role Phone Justen Gale MD Primary Care Provider [phone] David Roberts APRN, TIP CEMENTER Unavailable [phone] Annel Rod MD Unavailable Reason for Visit * Reason Comments Medication Refill Encounter Details Date Type Department Care Team (Late st Contact Info) Description 09/30/2023 Refill [facility] - [place] #2 [place] [address] Annel Rod MD #[address] [address] Medication Refill Social History [...] Description 11/19/2024 2:00 PM CDT Office Visit [facility] Medical Group - Endocrinology [facility] #2 [place] [address] Annel Rod MD #[address] [address] documented as of this encounter Visit Diagnoses Not on filedocumented in this encounter Additional Health Concerns Infection Onset Date Last Indicated Resolved Time COVID - 19 08/01/2024 08/01/2024 08/01/2024 3:20 PM CDT Assessment Noted Time PHQ-9 Depression Total Score: 8 01/18/20 23 2:24 PM CDT documented as of this encounter Care Teams Roll Reclaimer Relationship Specialty Start Date End Date Justen Gale MD #[address] [address] PCP - General Family Medicine 10/17/17 David Roberts APRN, TIP CEMENTER #[address] [place] [address] Nurse Practitioner Advanced Practice Nurse 01/31/22 Annel Rod MD #[address] [address] Consulting Physician Endocrinology 07/01/22 documented as of this encounter
--- OUTSIDE RECORDS SUMMARY | 2024-11-15 15:24 | XMS_ITS | Encounter Summary ---
Author Organization [facility] Address [address] [place] [address] Phone Care Team Providers Care Community Dietitian Name Role Phone Justen Gale MD Primary Care Provider David Roberts APRN, FISHING INSTRUCTOR Unavailable Annel Rod MD Unavailable Reason for Visit * Reason Onset Date Comments Pain 09/23/2024 Encounter Details Date Type Department Care Team (Late st Contact Info) Description 09/23/2024 Telephone [facility] [address] [place] [address] Justen Gale MD #[address] [address] Pain Social History Tobacco Use Types Packs/Day Years Used Date Smoking Tobacco: Never Smokeless Tobacco: Never Alcohol Use Standard Drinks/Week Comments No 0 (1 standard drink = 0.6 oz pur e alcohol) [facility] Utilities Answer Date Recorded In the past 12 months has [employer] electric, gas, oil, or water company threatened [...] How often do you attend chur or confucianist services? More than 4 times [...] - patient has RA Outcome: Transfer to legal secretary receptionist queue Reason: Caller denied all higher acuity [...] - Endocrinology [facility] #2 [place] [address] Annel Rod MD #2 [facility] [address] [place] [address] documented as of this encounter Visit Diagnoses Not on filedocumented in this encounter Additional Health Concerns Assessment Noted Time PHQ-9 Depression Total Score: 0 08/02/19 25 1:09 PM CDT documented as of this encounter Care Teams Community Dietitian Relationship Specialty Start Date End Date Justen Gale MD #2 [facility] [address] [place] [address] PCP - General Family Medicine 10/17/17 David Roberts APRN, FISHING INSTRUCTOR #2 [place] [address] Nurse Practitioner Advanced Practice Nurse 01/31/22 Annel Rod MD #2 [place] [phone] Consulting Physician Endocrinology 07/01/22 documented as of this encounter
--- OUTSIDE RECORDS SUMMARY | 2024-11-15 15:24 | XMS_ITS | Encounter Summary ---
Author Organization [facility] Address [address] [place] [address] Phone Care Team Providers Care Psychiatric Registered Nurse Name Role Phone Liu Jerez MD Unavailable [phone] Albert Corbin MD Unavailable Justen Gale MD Primary Care Provider Khris Arthur MD Unavailable [phone] Ko Melendez MD Unavailable [phone] John Paul Moyer MD Unavailable Annel Rod MD Unavailable Anali MARSHALL MD, Carlos M. Unavailable [phone] Encounter Details Date Type Department Care Team [...] Sex Female 12:24 AM ASSISTANT PROFESSOR OF PSYCHOLOGY Gender Identity Not on file Sexual Orientation [...] COVID: Recovered 02/10/2022 02/10/2022 06/10/2022 3:05 AM ASSISTANT PROFESSOR OF PSYCHOLOGY Exposure, COVID-19 Comment:Added automatically based on COVID19 lab answers indicating exposure risk 02/11/2022 02/11/2022 02/15/2022 9:06 AM C DT COVID: Suspected 05/14/2022 05/14/2022 05/14/2022 10:41 AM ASSISTANT PROFESSOR OF PSYCHOLOGY COVID: Suspected 06/07/2022 06/07/2022 06/07/2022 12:28 PM ASSISTANT PROFESSOR OF PSYCHOLOGY COVID: Suspected 06/21/2022 06/21/2022 06/21/2022 2:12 AM ASSISTANT PROFESSOR OF PSYCHOLOGY COVID: Suspected 10/05/2022 10/05/2022 10/05/2022 7:40 PM CDT COVID: Suspected 01/04/2024 01/04/2024 01/04/2024 10:30 PM CDT COVID: Suspected 02/14/2024 02/14/2024 02/15/2024 12:36 AM CDT COVID: Suspected 07/01/2024 07/01/2024 07/01/2024 2:53 PM CDT COVID: Suspected 07/01/2024 07/01/2024 07/02/2024 3:05 AM CDT documented as of this encounter Care Teams Psychiatric Registered Nurse Relationship Specialty Start Date End Date Justen Gale MD [address] [facility] [address] [place] [address] PCP - General 10/09/17 Liu Jerez MD Consulting Physician Gastroenterology 07/28/17 [place] [address] [facility] [id number] [place] [address] Consulting Physician Pulmonary Disease 08/03/17 [place] [address] [place] [address] [address] [place] [address] Medical Oncologist/Rn Resource Nurse Medical Oncology 10/23/17 [place] [address] [address] Surgeon Orthopedic Surgery 10/23/17 [place] [address] [facility] [address] [place] [address] Consulting Physician Pain Management 10/23/17 [place] [address] [address] Referring Physician General Surgery 01/26/18 [place] [address] [facility] [address] [place] [address] Consulting Physician Neurology 01/26/18 documented as of this encounter
[2024-11-15 15:35] VITALS: BP 192/110; PULSE 105; RESP 19; TEMP 36.4; O2SAT 98
--- NOTE | 2024-11-15 15:44 | ED_ITS ---
HPI - Weakness General Chief complaint: Weakness <Codie Walters APRN - Last Filed: 11/15/24 16:59> Stated complaint: shortness of breath/weakness <Codie Walters APRN - Last Filed: 11/15/24 16:59> Time Seen by Provider: 11/15/24 15:40 <Codie Walters APRN - Last Filed: 11/15/24 16:59> Focused HPI: Patient is a 69-year-old female who presents to the ER with complaints of subjective difficulty breathing, full body swelling due to steroid use, for palpitations, and increased exhaustion. She was seen here in this ER last week for the same symptoms and reports they have worsened. Pt reports her symptoms have been going on for over a week. Her PCP decreased her steroid dosage, but it hasn't helped her symptoms. She endorses a history of CHF, polymyositis (an autoimmune disease), diabetes, and sleep apnea. Patient denies any new onset shortness of breath, recent fevers, or acute back pain. GENERAL: Well-appearing, well-nourished, and in no acute HEAD: Normocephalic, atraumatic. CHEST: Clear to auscultation. ?No respiratory distress. HEART: Regular rate and rhythm.? NEURO: ?Alert and oriented x3. Patient screened in triage and initial orders placed.? ?Additional care and disposition to be based upon?diagnostic testing and treatment. <Codie Walters APRN - Last Filed: 11/15/24 16:59> History of Present Illness HPI Narrative: Agree with the above the following additions/corrections: Patient does state that she has been short of breath. She is on her anticoagulation for history of DVT/PE and reports taking this medication. She denies any dysuria. She notes that he has microscopic but not gross hematuria chronically. She notes that she has urinary urgency and frequency but also has a history of overactive bladder and has been on steroids and this exacerbates this. She reports that her weakness is generalized, no particular unilateral symptoms. She had lost 60 lb but then she gained a lot or most of the weight back especially while on steroids. She and her are but she does continue to care for him as 3-4 months ago he became sick and is unable to walk. She therefore cares for him although she lives with her daughter. Her symptoms have been going on for approximately a week she was seen in the emergency department recently for the same. She reports chronic low back pain and has a history of seeing pain management. She has multiple medical conditions of any of them because her being exacerbated. She had full body swelling due to being on steroids though her PCP lowered this does recently. History of CHF and poly myositis. States her symptoms are worse at night and she feels like she is choking when she eats. In general she has diffuse generalized muscle aches and pains. <Alicia Bullock MD - Last Filed: 11/17/24 08:42> Related Data Home medications: Home Medications ?Medication ?Instructions ?Recorded ?Confirmed ?Last Taken ?Type exemestane 25 mg tablet 25 mg PO HS 01/06/20 11/16/24 11/15/24 History insulin glargine 100 unit/mL (3 50 unit subcut QAM 01/06/20 11/16/24 11/15/24 History mL) subcutaneous pen (Lantus Solostar U-100 Insulin) ropinirole 5 mg tablet 5 mg PO HS 01/06/20 11/16/24 11/15/24 History insulin lispro 100 unit/mL 32 unit subcut TID 03/19/22 11/16/24 11/15/24 History subcutaneous pen (Humalog KwikPen (U-100) Insulin) oxybutynin chloride 15 mg 15 mg PO DAILY 11/06/22 11/16/24 11/15/24 History tablet,extended release 24 hr gabapentin 300 mg capsule 300 mg PO TID 06/25/23 11/16/24 11/15/24 History prednisone 10 mg tablet 10 mg PO DAILY 10/08/24 11/16/24 11/15/24 History rivaroxaban 20 mg tablet (Xarelto) 20 mg PO 0900 10/08/24 11/16/24 11/15/24 History <Codie Walters APRN - Last Filed: 11/15/24 16:59> Allergies/Adverse reactions: Allergies Allergy/AdvReac Type Severity Reaction Status Date / Time ceftriaxone Allergy Severe SOB Verified 11/16/24 02:24 cephalexin Allergy Severe Difficulty Verified 11/16/24 02:24 Breathing Cephalosporins Allergy Severe Difficulty Verified 11/16/24 02:24 Breathing lorazepam Allergy Severe Swelling Verified 11/16/24 02:24 trazodone Allergy Severe Swelling Verified 11/16/24 02:24 of Lip/Tongue/Throat metoclopramide Allergy Intermediate Other Verified 11/16/24 02:24 chlorhexidine Allergy Mild BLISTERING Verified 11/16/24 02:24 levofloxacin Allergy Mild Hives / Verified 11/16/24 02:24 Red Face ketorolac Allergy Itching Verified 11/16/24 02:24 latex Allergy Rash Verified 11/16/24 02:24 meropenem Allergy Rash Verified 11/16/24 02:24 nitrofurantoin Allergy Itching Verified 11/16/24 02:24 piperacillin Allergy Rash Verified 11/16/24 02:24 reslizumab Allergy Hives Verified 11/16/24 02:24 trimethoprim (From Allergy Itching Verified 11/16/24 02:24 Sulfamethoxazole-Trimethoprim) sulfamethoxazole (From AdvReac Severe Anaphylaxis Verified 11/16/24 02:24 Sulfamethoxazole-Trimethoprim) clindamycin AdvReac Intermediate Nausea and Verified 11/16/24 02:24 Vomiting doxycycline AdvReac Mild Itching Verified 11/16/24 02:24 oxycodone AdvReac Mild Vomiting Verified 11/16/24 02:24 amlodipine AdvReac Swelling Verified 11/16/24 02:24 lisinopril AdvReac Swelling Verified 11/16/24 02:24 pregabalin AdvReac Swelling Verified 11/16/24 02:24 <Codie Walters, STATISTICAL REPORTING ANALYST - Last Filed: 11/15/24 16:59> [facility] Past Medical History Medical History: Medical History Gastroparesis Obstructive sleep apnea on CPAP Restless leg syndrome Pulmonary embolism positive for coagulation workup Deep venous thrombosis Type 2 diabetes mellitus Throat pain in adult Oral ulcer Chronic anticoagulation Overactive bladder Irritable bowel syndrome Congestive heart failure Chronic back pain Collagenous colitis Morbid obesity Breast cancer Depression Anxiety Peripheral neuropathy Kidney stone Multiple thyroid nodules <Codie Walters, STATISTICAL REPORTING ANALYST - Last Filed: 11/15/24 16:59> Surgical History Surgical History: Surgical History History of umbilical hernia repair History of colonoscopy Status post insertion of spinal cord stimulator History of cystoscopy History of ureter stent History of cholecystectomy History of bilateral mastectomy History of esophagogastroduodenoscopy (EGD) History of right oophorectomy History of total right knee replacement History of cardiac catheterization Reportedly negative for coronary artery disease. <Codie Walters APRN - Last Filed: 11/15/24 16:59> Family History Family History: Family History Mother Diabetes mellitus Acute myocardial infarction Congestive heart failure Hypertension Cerebrovascular accident Coronary artery disease Father Prostate carcinoma Sibling Acute myocardial infarction Breast cancer Chronic obstructive pulmonary disease <Codie Walters APRN - Last Filed: 11/15/24 16:59> Social History Social History: Social History (Updated 11/15/24 @ 19:26 by Alicia Bullock MD) Social History: Surrogate medical decision maker: Jimmie Sykesrangel, spouse. (Previously listed though she reports being now) Code status: Full code. Smoking packs per day: 0 Smoking cigarettes per day: 0.0 Years smoked: 2 Smoking pack-years: 0.00 Smoking status: Never smoker Second hand tobacco smoke exposure: Yes Alcohol intake: never Substance use: never Substance use type: does not use Do You Feel Safe in your Home?: Yes Lack of Transportation: YES Lack of Food: Never True Current Housing: I Have Housing Concerned About Future Housing: No Difficulty Paying Gas/Electric Bills: No Difficulty Paying for Meds: No Currently Unemployed: No Education: Associate Degree Difficulty w/ Childcare or Family Care: No Living arrangements: with family Additional living arrangements comments: daughter Additional occupation/education comments: Disabled. Spiritual care concerns: No <Codie Walters APRN - Last Filed: 11/15/24 16:59> Exam 2 Narrative: GENERAL: Chronically ill-appearing, well-nourished, and in no acute distress. HEAD: Normocephalic, atraumatic. EYES: Non injected, non icteric ENT: Nares clear, no rhinorrhea or epistaxis. Gross auditory acuity intact. NECK: Supple. No meningismus. CHEST: Speaking in full sentences. No respiratory distress. Lungs are clear to auscultation bilaterally without appreciable crackles wheezes. HEART: Regular rate and rhythm. . ABDOMEN: Morbidly obese but Soft, nondistended. EXTREMITIES: Large lower extremities but without edema. SKIN: Warm, dry, no rash. NEURO: No focal deficits. Alert and oriented. Answering questions. Following commands. Normal speech without aphasia or dysarthria. PSYCH: Congruent mood and affect. <Alicia Bullock MD - Last Filed: 11/17/24 08:42> Course Vital Signs Vital signs: Vital Signs Temperature 97.6 F 11/15/24 15:35 Pulse Rate 105 H 11/15/24 15:35 Respiratory Rate 19 11/15/24 15:35 Blood Pressure 192/110 H 11/15/24 15:35 Pulse Oximetry 98 11/15/24 15:35 Oxygen Delivery Room Air 11/15/24 15:35 Temperature 98.0 F 11/17/24 06:00 Pulse Rate 59 L 11/17/24 06:00 Respiratory Rate 14 11/17/24 06:00 Blood Pressure 129/65 11/17/24 06:00 Pulse Oximetry 100 11/17/24 06:00 Oxygen Delivery Autopap 11/17/24 03:15 <Codie Walters, STATISTICAL REPORTING ANALYST - Last Filed: 11/15/24 16:59> Vital Signs Temperature 97.6 F 11/15/24 15:35 Pulse Rate 105 H 11/15/24 15:35 Respiratory Rate 19 11/15/24 15:35 Blood Pressure 192/110 H 11/15/24 15:35 Pulse Oximetry 98 11/15/24 15:35 Oxygen Delivery Room Air 11/15/24 15:35 Temperature 98.0 F 11/17/24 06:00 Pulse Rate 59 L 11/17/24 06:00 Respiratory Rate 14 11/17/24 06:00 Blood Pressure 129/65 11/17/24 06:00 Pulse Oximetry 100 11/17/24 06:00 Oxygen Delivery Autopap 11/17/24 03:15 <Alicia Bullock MD - Last Filed: 11/17/24 08:42> MDM - Weakness MDM Narrative Medical decision making narrative: Patient presents with multiple complaints including shortness of breath, generalized weakness. Multiple medical comorbidities including CHF, DM, on chronic anticoagulation for PE/DVT, and polymyositis on steroids. In the emergency department she is afebrile vital signs notable for mild tachycardia. She is also hypertensive. This hypertension does improve on reassessment without interval intervention though remains elevated. Mild leukocytosis though patient is chronically on steroids. She has hyperglycemia without anion gap acidosis. Normal renal function. Only mildly abnormal BNP. Not to a degree to suggest acute heart failure based on the reference range of the assay especially for patient's age. Chest x-ray as below concerning for possible right lower lung pneumonia. CURB-65 score Confusion (No 0, Yes +1): 0 BUN >19mg/dl (No 0, Yes +1): 0 RR >/= 30 (No 0, Yes +1): 0 SBP <90mmHg or DBP </=60mmHg (No 0, Yes +1): 0 Age >/=65 (No 0, Yes +1): 1 Result = 1?points Low risk group: 2.7% 30-day mortality. Consider outpatient treatment. Lactic acid normal. Troponin normal. No marked electrolyte abnormalities. CPK normal. Patient given acetaminophen for pain. Dimer normal. Ambulated patient with portable pulse ox. O2 sat remained between 95-98% while walking. patient complained of mild weakness and shortness of breath. Initially ordered doxy as she does not list an allergy to this but she tells the RN that she is allergic to it and declines. No wheezes so no role for albuterol. I did evaluate the patient at bedside and reviewed her allergy list that she has on her phone. There are numerous antibiotic and other allergies. These include an allergy to azithromycin as it causes hives, an allergy to ceftriaxone, an allergy listed to doxycycline although without response/allergic reaction listed. She states she has an upcoming appoitnment with an international account manager in [facility] to evaluate her numerous antibiotic allergies. We discussed but it does not seem that there is a clear indication to admit her and the risks of doing so would be exposing her to hospital-acquired infection. We will give doxycycline and watcher to see if there is allergic response and if so will treat. When asked what she can take for pain given she lists an allergy to oxycodone and Toradol, she states I can take that medication that starts with a D...Dilau.....Dilaudid. She is given a dose of Dilaudid as well as doxycycline. When she is reassessed, she reports she is feeling much better. Did note that the doxycycline caries with that increased sun sensitivity and she is aware of her need to wear sunscreen if she is outside. She verifies understanding. We also discussed the fact that her urinalysis had abnormalities but without clayr evidence of urinary tract infection. Shortly afterwards, patient hits her call light and states that she has become itchy. Diphenhydramine ordered. She is observed scratching her head and arms, no clary urticaria. Hemodynamically stable. Discussed with director of accreditation hospitalist Dr Acosta who accepts as observation admission. <Alicia Bullock MD - Last Filed: 11/17/24 08:42> Differential Diagnosis Differential diagnosis: Likely acute myocardial infarction, anemia, hypoglycemia, hypothyroidism (Considered but TSH 11/07/24 was within normal limits), rhabdomyolysis, sepsis, dehydration and other (Acute viral syndrome, infection such as urinary tract infection/pyelonephritis/pneumonia) <Alicia Bullock MD - Last Filed: 11/17/24 08:42> Lab Data Attestation: I reviewed the patient's lab results. <Alicia Bullock MD - Last Filed: 11/17/24 08:42> Result diagrams: 11/16/24 05:52 11/16/24 05:52 <Codie Walters APRN - Last Filed: 11/15/24 16:59> Labs: Lab Results 11/15/24 11/15/24 11/15/24 Range/Units 17:22 17:22 17:36 WBC 13.1 H (4.5-10.0) K/mm3 RBC 4.56 (4.2-5.4) M/mm3 Hgb 13.1 (12.0-15.0) g/dL Hct 41.7 (37.0-47.0) % MCV 91.4 (80-100) fl MCH 28.7 (26-34) pg MCHC 31.4 L (32-36) g/dl RDW 13.7 (11.5-14.5) % Plt Count 279 (150-375) k/mm3 MPV 9.7 (7.4-10.4) fl Immature Gran % (Auto) 0.5 (0-0.5) % Neut % (Auto) 77.7 H (45.5-73.1) % Lymph % (Auto) 15.5 L (18.3-44.2) % [place] % (Auto) 5.6 (2.6-8.5) % Eos % (Auto) 0.4 (0-4.4) % Baso % (Auto) 0.3 (0.2-1.2) % Lymph # (Auto) 2.04 (0.9-3.2) K/mm3 [place] # (Auto) 0.7 H (0.1-0.6) K/mm3 Eos # (Auto) 0.1 (0-0.3) K/mm3 Baso # (Auto) 0.0 (0.0-0.1) K/mm3 Abs Immat Gran (auto) 0.07 H (0.00-0.031) K/mm3 Absolute Neuts (auto) 10.2 H (1.3-6.7) K/mm3 Absolute Nucleated RBC 0.000 (0.0-0.012) K/mm3 Nucleated RBC % 0.0 (0.0-0.2) % PT 23.0 H (11.1-14.7) Seconds INR 2.1 APTT 34.3 (22.3-36.8) Seconds D-Dimer 0.30 (<0.48) ug/mL Sodium 137 (137-145) mmol/L Potassium 4.1 (3.4-5.0) mmol/L Chloride 102 (98-107) mmol/L Carbon Dioxide 25 (22-30) mmol/L Anion Gap 10 (4-12) mmol/L BUN 17 (7-17) mg/dL Creatinine 0.69 L (0.7-1.0) mg/dL Estim Creat Clear Calc 84 ml/min Estimated GFR > 60 (59 - ) Glucose 202 H (65-110) mg/dL POC Capillary Glucose (65-105) mg/dl Lactic Acid 1.8 (0.7-2.0) mmol/L Calcium 9.9 (8.4-10.2) mg/dL Phosphorus (2.5-4.5) mg/dL Magnesium 1.8 (1.6-2.3) mg/dL Total Bilirubin 0.8 (0.2-1.3) mg/dL AST 30 (14-36) U/L ALT 32 (6-35) U/L Alkaline Phosphatase 77 (38-126) U/L Total Creatine Kinase 86 (30-135) U/L Troponin I < 0.012 Cancelled (0.000-0.034) ng/mL NT-Pro-B Natriuret Pep 150 H (19.9-100) pg/mL Total Protein 8.8 H (6.3-8.2) g/dL Albumin 4.3 (3.5-5.1) g/dL Procalcitonin ng/mL Urine Color Yellow (Yellow) Urine Appearance Clear (Clear) Urine pH 7.0 (5.0-9.0) Ur Specific [place] 1.021 (1.001-1.035) Urine Protein Trace (Negative) mg/dL Urine Glucose (UA) 1+ H (Negative) mg/dL Urine Ketones Negative (Negative) mg/dL Ur Blood (Man) 1+ H (Negative) Urine Nitrate Negative (Negative) Urine Bilirubin Negative (Negative) Urine Urobilinogen 1.0 (<2.0) mg/dL Leukocyte Esterase Rfl 2+ H (Negative) PAO/UL Urine RBC 3-5 H (0-2) /hpf Urine WBC 21-50 H (0-3) /hpf Ur Squamous Epith Cells None seen (Few) /hpf Urine Bacteria Rare /hpf Urine Casts 0-2 Influenza A (RT-PCR) (Negative) Influenza B (RT-PCR) (Negative) RSV (RT-PCR) (Negative) SARS-CoV-2 RNA (RT-PCR) (Negative) 11/15/24 11/16/24 11/16/24 Range/Units 19:50 05:52 08:03 WBC 9.8 (4.5-10.0) K/mm3 RBC 4.24 (4.2-5.4) M/mm3 Hgb 12.3 (12.0-15.0) g/dL Hct 39.4 (37.0-47.0) % MCV 92.9 (80-100) fl MCH 29.0 (26-34) pg MCHC 31.2 L (32-36) g/dl RDW 13.8 (11.5-14.5) % Plt Count 231 (150-375) k/mm3 MPV 10.0 (7.4-10.4) fl Immature Gran % (Auto) 0.6 H (0-0.5) % Neut % (Auto) 59.7 (45.5-73.1) % Lymph % (Auto) 29.0 (18.3-44.2) % [place] % (Auto) 8.4 (2.6-8.5) % Eos % (Auto) 2.0 (0-4.4) % Baso % (Auto) 0.3 (0.2-1.2) % Lymph # (Auto) 2.84 (0.9-3.2) K/mm3 [place] # (Auto) 0.8 H (0.1-0.6) K/mm3 Eos # (Auto) 0.2 (0-0.3) K/mm3 Baso # (Auto) 0.0 (0.0-0.1) K/mm3 Abs Immat Gran (auto) 0.06 H (0.00-0.031) K/mm3 Absolute Neuts (auto) 5.9 (1.3-6.7) K/mm3 Absolute Nucleated RBC 0.000 (0.0-0.012) K/mm3 Nucleated RBC % 0.0 (0.0-0.2) % PT (11.1-14.7) Seconds INR APTT (22.3-36.8) Seconds D-Dimer (<0.48) ug/mL Sodium 135 L (137-145) mmol/L Potassium 4.0 (3.4-5.0) mmol/L Chloride 102 (98-107) mmol/L Carbon Dioxide 26 (22-30) mmol/L Anion Gap 7 (4-12) mmol/L BUN 19 H (7-17) mg/dL Creatinine 0.73 (0.7-1.0) mg/dL Estim Creat Clear Calc 80 ml/min Estimated GFR > 60 (59 - ) Glucose 264 H (65-110) mg/dL POC Capillary Glucose 222 H (65-105) mg/dl Lactic Acid (0.7-2.0) mmol/L Calcium 9.2 (8.4-10.2) mg/dL Phosphorus 3.2 (2.5-4.5) mg/dL Magnesium 1.7 (1.6-2.3) mg/dL Total Bilirubin (0.2-1.3) mg/dL AST (14-36) U/L ALT (6-35) U/L Alkaline Phosphatase (38-126) U/L Total Creatine Kinase (30-135) U/L Troponin I (0.000-0.034) ng/mL NT-Pro-B Natriuret Pep (19.9-100) pg/mL Total Protein (6.3-8.2) g/dL Albumin (3.5-5.1) g/dL Procalcitonin 0.1 ng/mL Urine Color (Yellow) Urine Appearance (Clear) Urine pH (5.0-9.0) Ur Specific [place] (1.001-1.035) Urine Protein (Negative) mg/dL Urine Glucose (UA) (Negative) mg/dL Urine Ketones (Negative) mg/dL Ur Blood (Man) (Negative) Urine Nitrate (Negative) Urine Bilirubin (Negative) Urine Urobilinogen (<2.0) mg/dL Leukocyte Esterase Rfl (Negative) PAO/UL Urine RBC (0-2) /hpf Urine WBC (0-3) /hpf Ur Squamous Epith Cells (Few) /hpf Urine Bacteria /hpf Urine Casts Influenza A (RT-PCR) Negative (Negative) Influenza B (RT-PCR) Negative (Negative) RSV (RT-PCR) Negative (Negative) SARS-CoV-2 RNA (RT-PCR) Negative (Negative) <Codie Walters, STATISTICAL REPORTING ANALYST - Last Filed: 11/15/24 16:59> Lab Results 11/15/24 11/15/24 11/15/24 Range/Units 17:22 17:22 17:36 WBC 13.1 H (4.5-10.0) K/mm3 RBC 4.56 (4.2-5.4) M/mm3 Hgb 13.1 (12.0-15.0) g/dL Hct 41.7 (37.0-47.0) % MCV 91.4 (80-100) fl MCH 28.7 (26-34) pg MCHC 31.4 L (32-36) g/dl RDW 13.7 (11.5-14.5) % Plt Count 279 (150-375) k/mm3 MPV 9.7 (7.4-10.4) fl Immature Gran % (Auto) 0.5 (0-0.5) % Neut % (Auto) 77.7 H (45.5-73.1) % Lymph % (Auto) 15.5 L (18.3-44.2) % [place] % (Auto) 5.6 (2.6-8.5) % Eos % (Auto) 0.4 (0-4.4) % Baso % (Auto) 0.3 (0.2-1.2) % Lymph # (Auto) 2.04 (0.9-3.2) K/mm3 [place] # (Auto) 0.7 H (0.1-0.6) K/mm3 Eos # (Auto) 0.1 (0-0.3) K/mm3 Baso # (Auto) 0.0 (0.0-0.1) K/mm3 Abs Immat Gran (auto) 0.07 H (0.00-0.031) K/mm3 Absolute Neuts (auto) 10.2 H (1.3-6.7) K/mm3 Absolute Nucleated RBC 0.000 (0.0-0.012) K/mm3 Nucleated RBC % 0.0 (0.0-0.2) % PT 23.0 H (11.1-14.7) Seconds INR 2.1 APTT 34.3 (22.3-36.8) Seconds D-Dimer 0.30 (<0.48) ug/mL Sodium 137 (137-145) mmol/L Potassium 4.1 (3.4-5.0) mmol/L Chloride 102 (98-107) mmol/L Carbon Dioxide 25 (22-30) mmol/L Anion Gap 10 (4-12) mmol/L BUN 17 (7-17) mg/dL Creatinine 0.69 L (0.7-1.0) mg/dL Estim Creat Clear Calc 84 ml/min Estimated GFR > 60 (59 - ) Glucose 202 H (65-110) mg/dL POC Capillary Glucose (65-105) mg/dl Lactic Acid 1.8 (0.7-2.0) mmol/L Calcium 9.9 (8.4-10.2) mg/dL Phosphorus (2.5-4.5) mg/dL Magnesium 1.8 (1.6-2.3) mg/dL Total Bilirubin 0.8 (0.2-1.3) mg/dL AST 30 (14-36) U/L ALT 32 (6-35) U/L Alkaline Phosphatase 77 (38-126) U/L Total Creatine Kinase 86 (30-135) U/L Troponin I < 0.012 Cancelled (0.000-0.034) ng/mL NT-Pro-B Natriuret Pep 150 H (19.9-100) pg/mL Total Protein 8.8 H (6.3-8.2) g/dL Albumin 4.3 (3.5-5.1) g/dL Procalcitonin ng/mL Urine Color Yellow (Yellow) Urine Appearance Clear (Clear) Urine pH 7.0 (5.0-9.0) Ur Specific [place] 1.021 (1.001-1.035) Urine Protein Trace (Negative) mg/dL Urine Glucose (UA) 1+ H (Negative) mg/dL Urine Ketones Negative (Negative) mg/dL Ur Blood (Man) 1+ H (Negative) Urine Nitrate Negative (Negative) Urine Bilirubin Negative (Negative) Urine Urobilinogen 1.0 (<2.0) mg/dL Leukocyte Esterase Rfl 2+ H (Negative) PAO/UL Urine RBC 3-5 H (0-2) /hpf Urine WBC 21-50 H (0-3) /hpf Ur Squamous Epith Cells None seen (Few) /hpf Urine Bacteria Rare /hpf Urine Casts 0-2 Influenza A (RT-PCR) (Negative) Influenza B (RT-PCR) (Negative) RSV (RT-PCR) (Negative) SARS-CoV-2 RNA (RT-PCR) (Negative) 11/15/24 11/16/24 11/16/24 Range/Units 19:50 05:52 08:03 WBC 9.8 (4.5-10.0) K/mm3 RBC 4.24 (4.2-5.4) M/mm3 Hgb 12.3 (12.0-15.0) g/dL Hct 39.4 (37.0-47.0) % MCV 92.9 (80-100) fl MCH 29.0 (26-34) pg MCHC 31.2 L (32-36) g/dl RDW 13.8 (11.5-14.5) % Plt Count 231 (150-375) k/mm3 MPV 10.0 (7.4-10.4) fl Immature Gran % (Auto) 0.6 H (0-0.5) % Neut % (Auto) 59.7 (45.5-73.1) % Lymph % (Auto) 29.0 (18.3-44.2) % [place] % (Auto) 8.4 (2.6-8.5) % Eos % (Auto) 2.0 (0-4.4) % Baso % (Auto) 0.3 (0.2-1.2) % Lymph # (Auto) 2.84 (0.9-3.2) K/mm3 [place] # (Auto) 0.8 H (0.1-0.6) K/mm3 Eos # (Auto) 0.2 (0-0.3) K/mm3 Baso # (Auto) 0.0 (0.0-0.1) K/mm3 Abs Immat Gran (auto) 0.06 H (0.00-0.031) K/mm3 Absolute Neuts (auto) 5.9 (1.3-6.7) K/mm3 Absolute Nucleated RBC 0.000 (0.0-0.012) K/mm3 Nucleated RBC % 0.0 (0.0-0.2) % PT (11.1-14.7) Seconds INR APTT (22.3-36.8) Seconds D-Dimer (<0.48) ug/mL Sodium 135 L (137-145) mmol/L Potassium 4.0 (3.4-5.0) mmol/L Chloride 102 (98-107) mmol/L Carbon Dioxide 26 (22-30) mmol/L Anion Gap 7 (4-12) mmol/L BUN 19 H (7-17) mg/dL Creatinine 0.73 (0.7-1.0) mg/dL Estim Creat Clear Calc 80 ml/min Estimated GFR > 60 (59 - ) Glucose 264 H (65-110) mg/dL POC Capillary Glucose 222 H (65-105) mg/dl Lactic Acid (0.7-2.0) mmol/L Calcium 9.2 (8.4-10.2) mg/dL Phosphorus 3.2 (2.5-4.5) mg/dL Magnesium 1.7 (1.6-2.3) mg/dL Total Bilirubin (0.2-1.3) mg/dL AST (14-36) U/L ALT (6-35) U/L Alkaline Phosphatase (38-126) U/L Total Creatine Kinase (30-135) U/L Troponin I (0.000-0.034) ng/mL NT-Pro-B Natriuret Pep (19.9-100) pg/mL Total Protein (6.3-8.2) g/dL Albumin (3.5-5.1) g/dL Procalcitonin 0.1 ng/mL Urine Color (Yellow) Urine Appearance (Clear) Urine pH (5.0-9.0) Ur Specific [place] (1.001-1.035) Urine Protein (Negative) mg/dL Urine Glucose (UA) (Negative) mg/dL Urine Ketones (Negative) mg/dL Ur Blood (Man) (Negative) Urine Nitrate (Negative) Urine Bilirubin (Negative) Urine Urobilinogen (<2.0) mg/dL Leukocyte Esterase Rfl (Negative) PAO/UL Urine RBC (0-2) /hpf Urine WBC (0-3) /hpf Ur Squamous Epith Cells (Few) /hpf Urine Bacteria /hpf Urine Casts Influenza A (RT-PCR) Negative (Negative) Influenza B (RT-PCR) Negative (Negative) RSV (RT-PCR) Negative (Negative) SARS-CoV-2 RNA (RT-PCR) Negative (Negative) <Alicia Bullock MD - Last Filed: 11/17/24 08:42> Imaging Data Radiologist's impression: IMPRESSION: 1. Opacities at the posterior medial right lower lung zone which could represent atelectasis or pneumonia. <Alicia Bullock MD - Last Filed: 11/17/24 08:42> ECG Data EKG #1: Attestation: I personally reviewed and interpreted this ECG as follows: < Alicia Bullock MD - Last Filed: 11/17/24 08:42> ECG completion date: 11/15/24 <Alicia Bullock MD - Last Filed: 11/17/24 08:42> ECG completion time: 17:13 <Alicia Bullock MD - Last Filed: 11/17/24 08:42> Interpretation: Normal sinus rhythm at a rate of 97 beats patent. There are frequent PVCs. Good R-wave progression across the precordial leads. <Alicia Bullock MD - Last Filed: 11/17/24 08:42> Discharge Plan Discharge Clinical Impression: Leukocytosis, Hyperglycemia due to diabetes mellitus, Abnormal urinalysis, Generalized weakness, Shortness of breath, Chest x-ray abnormality <Codie Walters APRN - Last Filed: 11/15/24 16:59> Patient Disposition: Still a Patient <Codie Walters APRN - Last Filed: 11/15/24 16:59> Condition: Stable <Codie Walters APRN - Last Filed: 11/15/24 16:59> Time of Disposition: 21:12 <Codie Walters APRN - Last Filed: 11/15/24 16:59> 21:12 <Alicia Bullock MD - Last Filed: 11/17/24 08:42>
--- NOTE | 2024-11-15 16:58 | ECG_ITS ---
Test Date: 2024-11-15 17:13:35 Measurements Intervals Cashion Rate: 97 P: 12 WV: 132 QRS: 15 QRSD: 80 T: 54 QT: 339 QTc: 432 Interpretive Statements SINUS RHYTHM WITH FREQUENT VENTRICULAR PREMATURE COMPLEXES NONSPECIFIC T-WAVE ABNORMALITY ABNORMAL RHYTHM ECG Compared to ECG 11/07/2024 20:32:29 Ventricular premature complex(es) now present T-wave abnormality now present Electronically Signed On 11-16-2024 18:45:56 CDT by Rigo Gómez M.D.
[2024-11-15 17:19] VITALS: BP 147/97; PULSE 94; TEMP 36.7; O2SAT 97
[2024-11-15 17:46] LABS: Hematocrit 41.7 % (37.0-47.0); Hemoglobin 13.1 g/dL (12.0-15.0); Immature Granulocyte Percent A 0.5 % (0-0.5); Lymphocytes Absolute Auto 2.04 K/mm3 (0.9-3.2); Mean Corpuscular HGB Conc 31.4 g/dl (32-36); Mean Corpuscular Hemoglobin 28.7 pg (26-34); Mean Corpuscular Volume 91.4 fl (80-100); Nucleated Red Blood Cells Absolute Auto 0.000 K/mm3 (0.0-0.012); Nucleated Red Blood Cells Perc 0.0 % (0.0-0.2); Platelet Count Result 279 k/mm3 (150-375); Red Blood Count 4.56 M/mm3 (4.2-5.4); White Blood Count 13.1 K/mm3 (4.5-10.0)
[2024-11-15 17:52] LABS: Add Urine Microscopic? YES; Appearance Urine Clear (Clear); Glucose Urine UA 1+ mg/dL (Negative); Leukocyte Esterase Ur 2+ LEU/UL (Negative); Nitrate Urine Negative (Negative); Non Pathogenic Casts 0-2; Specific Grav Ur 1.021 (1.001-1.035)
[2024-11-15 17:59] LABS: Alanine Aminotransferase 32 U/L (6-35); Albumin Level 4.3 g/dL (3.5-5.1); Alkaline Phosphatase 77 U/L (38-126); Anion Gap 10 mmol/L (4-12); Aspartate Amino Transferase 30 U/L (14-36); Bilirubin,Total 0.8 mg/dL (0.2-1.3); Blood Urea Nitrogen 17 mg/dL (7-17); Calcium 9.9 mg/dL (8.4-10.2); Carbon Dioxide 25 mmol/L (22-30); Chloride 102 mmol/L (98-107); Estimated CRCL calculation 84 ml/min; Estimated Glomerular Filt Rate > 60; Glucose 202 mg/dL (65-110); Potassium 4.1 mmol/L (3.4-5.0); Sodium 137 mmol/L (137-145); Total Protein 8.8 g/dL (6.3-8.2)
[2024-11-15 18:02] LABS: INR 2.1; Prothrombin Time 23.0 Seconds (11.1-14.7)
[2024-11-15 18:04] LABS: Partial Thromboplastin Time 34.3 Seconds (22.3-36.8)
[2024-11-15 18:10] LABS: NT Pro B Type Natriuretic Pept 150 pg/mL (19.9-100); Troponin I < 0.012 ng/mL (0.000-0.034)
[2024-11-15 18:47] VITALS: BP 150/77; PULSE 92; RESP 18; O2SAT 100
--- OUTSIDE RECORDS SUMMARY | 2024-11-15 19:23 | XMS_ITS | Encounter Summary ---
Author Organization [facility] Address [address] [place] [address] Phone Care Team Providers Care Theater Education Teacher Name Role Phone Justen Gale MD Primary Care Provider David Roberts APRN, SENIOR DIRECTOR OF GLOBAL COMMERCIAL TECHNOLOGY SOLUTIONS Unavailable Annel Rod MD Unavailable Reason for Visit * Reason Comments Medication Refill Encounter Details Date Type Department Care Team (Late st Contact Info) Description 04/13/2023 Refill [facility] [place] #2 [place] [address] Annel Rod MD #[address] [address] Medication Refill Social History Tobacco [...] Jennifer Wang, RN - 04/14/2023 10:00 AM PROFILE TRIMMER Requested Prescriptions Pending Prescriptions Disp Refills ??? Continuous Blood Gluc Sensor (FreeStyle Eileen 2 Sensor) Misc [Pharmacy Med Name: FREESTYLE EILEEN 2 SENSOR] 6 Each 1 Sig: APPLY 1 SENSOR AND WEAR FOR 14 DAYS TO CHECK BLOOD SUGAR Next appt: 05/30/2023 ILE TRIMMER documented in this encounter Plan of Treatment Upcoming Encounters Date Type Department Care Team (Late st Contact Info) Description 11/19/2024 2:00 PM CDT Office Visit [facility] - Endocr[facility] #2 [place] [address] Annel Rod MD #[address] [address] documented as of this encounter Visit Diagnoses Not on filedocumented in this encounter Additional Health Concerns Infection Onset Date Last Indicated Resolved Time COVID - 19 08/01/2024 08/01/2024 08/01/2024 3:20 PM CDT Assessment Noted Time PHQ-9 Depression Total Score: 8 01/18/20 23 2:24 PM CDT documented as of this encounter Care Teams Theater Education Teacher Relationship Specialty Start Date End Date Justen Gale MD #[address] [address] PCP - General Family Medicine 10/17/17 David Roberts, RN BURN, SENIOR DIRECTOR OF GLOBAL COMMERCIAL TECHNOLOGY SOLUTIONS #2 [place] [address] Nurse Practitioner Advanced Practice Nurse 01/31/22 Annel Rod MD [address] [address] Consulting Physician Endocrinology 07/01/22 documented as of this encounter
--- OUTSIDE RECORDS SUMMARY | 2024-11-15 19:23 | XMS_ITS | Referral Summary ---
Author Organization [facility] Address [address] [place] [address] Care Team Providers Care Census Taker Name Role Phone Liu Jerez MD Unavailable Albert Corbin MD Unavailable Justen Gale MD Primary Care Provider [phone] Khris Arthur MD Unavailable [phone] Ko Melendez MD Unavailable John Paul Moyer [...] 05/22/2024 Assessment & Plan (05/26/2024 10:08 AM TAPE CONTROL SKIN OR SPAR MILL OPERATOR): Presenting with urinary symptoms of right [...] 05/22/2024 Assessment & Plan (05/25/2024 7:52 AM TAPE CONTROL SKIN OR SPAR MILL OPERATOR): Hx of breast cancer c/b DVT/bilateral [...] 05/22/2024 Assessment & Plan (05/22/2024 1:14 PM TAPE CONTROL SKIN OR SPAR MILL OPERATOR): -long-standing chronic back pain -CT L [...] 09/12/2021 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) 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) 10/23/2017 Assessment & Plan (10/23/2017 2:06 AM [...] 10/13/2017 Assessment & Plan (05/22/2024 12:29 PM TAPE CONTROL SKIN OR SPAR MILL OPERATOR): -Hx stage II, ER positive, HER2 [...] 08/01/2017 Assessment & Plan (05/22/2024 12:33 PM TAPE CONTROL SKIN OR SPAR MILL OPERATOR): -Hx LUL -Hospital provided CPAP ordered History of DVT (deep vein thrombosis) 08/01/2017 History of pulmonary embolism 08/01/2017 Generalized weakness 07/27/2017 Dyspnea 07/27/2017 Unintentional weight loss 07/27/2017 Acute cystitis without hematuria 07/27/2017 Nausea and vomiting 07/26/2017 Overview (07/28/2017): Added automatically from request for surgery [id number] Pulmonary embolism 08/09/2016 Assessment & Plan (10/23/2017 2:05 AM CDT): On Rivaroxaban Lymphedema of left upper extremity 08/09/2016 Assessment & Plan (05/25/2024 7:53 AM TAPE CONTROL SKIN OR SPAR MILL OPERATOR): S/p L axillary lymph node dissection [...] syndrome Assessment & Plan (05/22/2024 11:18 AM TAPE CONTROL SKIN OR SPAR MILL OPERATOR): -continue home Requip 5mg nightly Pain of lower extremity 03/12/2013 Overview (07/29/2016): Leg pain Essential hypertension Assessment & Plan (05/23/2024 10:42 AM TAPE CONTROL SKIN OR SPAR MILL OPERATOR): -Chart history of HTN but not on meds -BP elevated on admission, likely some pain contributing -Monitor closely once pain under adequate control, discussed following up with PCP for this Chronic anticoagulation Restless leg syndrome 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 More than 4 times per year [...] a skilled nursing (including now)? No 08/15/2023 Housing Stability Vital [...] in a skilled nursing (including now)? No 05/24/2024 Personal Safety Answer Date Recorded Have you ever been in or are you currently in a harmful physical or emotional relationship or is someone making you feel afraid or unsafe? Denies 07/01/2024 Comments No Sex and Gender Information Value Date Recorded Sex Assigned at Not on file Legal Sex Female 12:24 AM TAPE CONTROL SKIN OR SPAR MILL OPERATOR Gender Identity Not on file [...] CDT HEMOGLOBIN A1C STAT 05/21/2024 4:20 PM TAPE CONTROL SKIN OR SPAR MILL OPERATOR LIPID PANEL STAT 05/21/2024 4:20 PM TAPE CONTROL SKIN OR SPAR MILL OPERATOR DEXA AXIAL SKELETON BONE DENSITY 1 [...] was last reviewed 2021. Testing performed by: [facility] [place], [address] [place] [address]., [address] Blood 07/01/2024 2:02 PM CDT 07/01/2024 2:12 PM CDT us Ilana Stevens MD LAB BLOOD ORDERABLES F inal Result [facility] [address] [facility] [place] [address] * (ABNORMAL) Hemoglobin A1c (05/21/2024 4:20 PM TAPE CONTROL SKIN OR SPAR MILL OPERATOR) Hgb A1C 8.7(H) 4.0 - 5.6 % Estimated Average Glucose 203 mg/dL [facility] Comment: The ADA recommends reporting an estimated Average Glucose (eAG) with all Hemoglobin A1c results using the equation derived from a study of 507 normal and diabetic adults. Minority populations were underrepresented and children were not included. (Diabetes Care 2020; 43(S1): S66-S76). The eAG is not equivalent to a fasting glucose. Blood 05/21/2024 4:20 PM TAPE CONTROL SKIN OR SPAR MILL OPERATOR 05/21/2024 4:55 PM TAPE CONTROL SKIN OR SPAR MILL OPERATOR us Leo Henry MD LAB BLOOD ORDERABLES Final Result [facility] Department [place] [address] * (ABNORMAL) Lipid panel (05/21/2024 4:20 PM TAPE CONTROL SKIN OR SPAR MILL OPERATOR) Cholesterol 205(H) 30 - 199 mg/dL [...] on 2017. Triglycerides 92 <=149 mg/dL [facility] Comment: Interpretive Data Ages < or [...] 2017. HDL 55 >=40 mg/dL [facility] Comment: Interpretive Data Ages < or [...] LDL, calculated 134(H) <=129 mg/dL [facility] Comment: Interpretive Data Ages < or [...] 2023. Non-HDL Cholesterol 150 mg/dL [facility] Comment: Interpretive Data Ages < or [...] revised on 2017. Chol/HDL ratio 4 [facility] Blood 05/21/2024 4:20 PM TAPE CONTROL SKIN OR SPAR MILL OPERATOR 05/21/2024 4:50 PM TAPE CONTROL SKIN OR SPAR MILL OPERATOR Narrative [facility] - 05/22/2024 4:17 PM TAPE CONTROL SKIN OR SPAR MILL OPERATOR Reflex us Leo Henry MD LAB BLOOD ORDERABLES Final Result [facility] [place] [address] * Dexa Axial Skeleton Bone Density 1 or 2 Site (08/02/2022 10:53 AM CDT) Anatomical Region Laterality Modality Body N/A Radiographic Lizeth ging Narrative 08/02/2022 3:34 PM CDT Patient Name: Karly Marques Date of : 1955 Date of scan: 08/02/2022 Bone mineral density was performed on a HoloYatra Discovery Densitometer. Based on machine cross-calibration and [...] by the International Society of Clinical Densitometry. [id number] Khris Arthur MD [facility] DXA PROCEDURES F inal [...] this written report and agrees with it. [facility]# Date Time Exam [id number] Aug 19, 2016 14:27:00 [facility] 88970 Diag Mamm, inc CAD, unilat L Technologist(s): Carla Harris; ; [id number] Aug 19, 2016 15:39:00 [facility] 33303 Breast US unilateral, ltd L ACC# Date Time Exam [id number] Aug 19, 2016 14:27:00 [facility] 04443 Diag Mamm, inc CAD, unilat L Technologist(s): Carla Harris; ; [id number] Aug 19, 2016 15:39:00 [facility] 63047 Breast US unilateral, ltd L EXAMINATION: LEFT [...] SARABIA M.D. on Aug 19 2016 4:20P [id number] Procedure Note Miscellaneous, Not In File / Provider, Historical, MD - 09/17/2016 ANTHONY SARABIA M.D. JUDY RINCON M.D. FINAL REPORT The radiology attending physician has personally reviewed this study, and has reviewed and/or edited this written report and agrees with it. ACC# Date Time Exam [id number] Aug 19, 2016 14:27:00 [facility] 18315 Diag Mamm, inc CAD, unilat L Technologist(s): Carla Harris; ; [id number] Aug 19, 2016 15:39:00 [facility] [id number] Breast US unilateral, ltd L ACC# Date Time Exam [id number] Aug 19, 2016 14:27:00 [facility] 17140 Diag Mamm, inc CAD, unilat L Technologist(s): Carla Harris; ; [id number] Aug 19, 2016 15:39:00 C 03006 Breast US unilateral, ltd L EXAMINATION: LEFT [...] SARABIA M.D. on Aug 19 2016 4:20P [id number] us Not In File Miscellaneous IMG MAMMO PROCEDURES F inal Result from Last 3 Months or Most Recently Relevant to Health Maintenance Insurance [facility] MEDICARE ADVANTAGE [facility] MEDICARE ADVANTAGE [employer] MEDICARE ADVANTAGE Advance Directives For more information, please contact: [phone] Documents on File Type Date Recorded Patient Field Support Specialist Expl anation ADVANCE DIRECTIVE 12/23/2021 2:49 PM Power of Chief Communications Officer-Medical ADVANCE DIRECTIVE 12/23/2021 2:49 PM Living Will [...] First Alternate Health Care Agent Care Teams Census Taker Relationship Specialty Start Date End Date Justen Gale MD [address] [facility] [address] [place] [address] PCP - General 10/09/17 Liu Jerez MD Consulting Physician Gastroenterology 07/28/17 [place] [address] [facility] [address] [place] [address] Consulting Physician Pulmonary Disease 08/03/17 Khris Arthur MD [address] [facility] [address] [place] [address] Medical Oncologist/Strategic Account Director Medical Oncology 10/23/17 [place] [address] [facility] [address] [place] [address] Surgeon Orthopedic Surgery 10/23/17 [place] [address] [facility] [address] [place] [address] Consulting Physician Pain Management 10/23/17 [place] [address] [facility] [address] [place] [address] Referring Physician General Surgery 01/26/18 [place] [address] [facility] [address] [place] [address] Consulting Physician Neurology 01/26/18
--- OUTSIDE RECORDS SUMMARY | 2024-11-15 19:23 | XMS_ITS | Encounter Summary ---
Author Organization [facility] Address [address] [place] [address] Phone Care Team Providers Care Air Pollution Inspector Name Role Phone Justen Gale MD Primary Care Provider David Roberts APRN, CHEMICAL LIBRARIAN Unavailable [phone] Annel Rod MD Unavailable Reason for Visit * Reason Onset Date Comments Advice Only 08/19/2024 Follow-up 08/19/2024 Encounter Details Date Type Department Care Team (Late st Contact Info) Description 08/19/2024 Telephone [facility] - [facility] #2 [place] [address] Justen Gale MD [address] [address] Advice Only; Follow-up Social History Tobacco Use [...] 1-9 0 07/23 [facility] - Occupational Stress Questionnaire Answer Date [...] the past [address] [facility], were you homeless or living in a [...] visit * Telephone Encounter - Angelito Alegria, SECTION GANG, CHEMICAL LIBRARIAN - 08/19/2024 9:04 AM CDT Forwarding * Telephone Encounter - Isaura Weiss RN - 08/19/2024 8:37 AM CDT Situation: Strep throat follow up Background: Patient contacting PCP office. Patient was seen in ED on 08/09 and 08/12 in [place] (records in chart). Diagnosed with strep. Assessment: [...] CDT Symptom: Sore Throat Outcome: Transfer to accounting generalist queue Reason: Caller denied all higher acuity questions The caller accepted this outcome. Caller Denied: * Struggling for each breath (severe trouble breathing) * Can't swallow saliva (drooling) documented in this encounter Plan of Treatment Upcoming Encounters Date Type Department Care Team (Late st Contact Info) Description 11/19/2024 2:00 PM CDT Office Visit [facility] - Endocrinology - [place] #2 [place] [address] Annel Rod MD [address] [address] documented as of this encounter Visit Diagnoses Not on filedocumented in this encounter Additional Health Concerns Assessment Noted Time PHQ-9 Depression Total Score: 0 08/02/19 25 1:09 PM CDT documented as of this encounter Care Teams Air Pollution Inspector Relationship Specialty Start Date End Date Justen Gale MD #2 [facility] [address] [place] [address] PCP - General Family Medicine 10/17/17 David Roberts APRN, CHEMICAL LIBRARIAN #2 [place] [address] Nurse Practitioner Advanced Practice Nurse 01/31/22 Annel Rod MD #2 [facility] [address] [place] [address] Consulting Physician Endocrinology 07/01/22 documented as of this encounter
--- OUTSIDE RECORDS SUMMARY | 2024-11-15 19:23 | XMS_ITS | Encounter Summary ---
Author Organization [facility] Address [address] [place] [address] Phone Care Team Providers Care Airfield Manager Name Role Phone Justen Gale MD Primary Care Provider David Roberts APRN, CANDY CUTTER MACHINE Unavailable [phone] Annel Rod MD Unavailable Reason for Visit * Reason Onset Date Comments Medication Refill 08/06/2020 Encounter Details Date Type Department Care Team (Late st Contact Info) Description 08/06/2020 Refill [facility] #2 [facility] [id number] Justen aGle MD #[address] [address] Medication Refill Social History Tobacco Use Types [...] Visits 2 weeks ago [facility] APN, CANDY CUTTER MACHINE 2 months ago Increased urinary frequency [facility] Pili Mueller APN, CANDY CUTTER MACHINE 5 months ago Urinary frequency [facility] Pili Mueller APN, CANDY CUTTER MACHINE 8 months ago Type 2 diabetes mellitus with diabetic polyneuropathy, with long- term current use of insulin (HCC) [facility] Pili Mueller APN, CANDY CUTTER MACHINE 9 months ago Nausea [facility] Justen Urbano MD Upcoming Appointments Future Appointments In 6 days Pili Elkins APN, CANDY CUTTER MACHINE [facility]EARCH ASSIST[facility] - Recent and Past Visits Recent Visits Date Type Provider Dept 07/20/20 Office Visit Pili Elkins APN, CANDY CUTTER MACHINE [facility] 06/05/20 Office Visit Pili Elkins APN, NETTA [facility] 02/17/20 Office Visit Pili Elkins APN, NETTA [facility] 12/03/19 Office Visit Pili Elkins APN, NETTA [facility] 11/05/19 Telemedicine Justne Gale MD [facility] 07/25/19 [facility]medicine [facility] within past 460 days with a meds authorizing provider and meeting all other requirements Future Appointments Date Type Provider Dept 08/12/20 Appointment Pili Elkins APN, CNP [facility] Showing future appointments within next 90 days [...] Visit [facility] [place] #[address] [place] [address] Annel Rdo MD #[address] [place] [address] documented as of this encounter Visit Diagnoses Not on filedocumented in this encounter Additional Health Concerns Infection Onset Date Last Indicated Resolved Time COVID - 19 08/01/2024 08/01/2024 08/01/2024 3:20 PM CDT Assessment Noted Time PHQ-9 Depression Total Score: 0 07/21/19 21 3:00 PM CDT documented as of this encounter Care Teams Airfield Manager Relationship Specialty Start Date End Date Justen Gale MD #2 [facility] [address] [place] [address] PCP - General Family Medicine 10/17/17 David Roberts, COMPLIANCE INVESTIGATOR, CANDY CUTTER MACHINE #2 [place] [address] Nurse Practitioner Advanced Practice Nurse 01/31/22 Annel Rod MD #2 [facility] [address] [place] [address] Consulting Physician Endocrinology 07/01/22 documented as of this encounter
--- OUTSIDE RECORDS SUMMARY | 2024-11-15 19:23 | XMS_ITS | Encounter Summary ---
Author Organization [facility] Address [address] [place] [address] Phone Care Team Providers Care Telephone Sales Agent Name Role Phone Justen Gale MD Primary Care Provider David Roberts APRN, MUSEUM INFORMATICS SPECIALIST Unavailable Annel Rod MD Unavailable Reason for Visit * Reason Onset Date Comments Follow-up 11/14/2024 Encounter Details Date Type Department Care Team (Late st Contact Info) Description 11/14/2024 Telephone [facility] [address] [place] [address] Justen Gale MD #[address] [address] Follow-up Social History Tobacco Use Types Packs/Day Years Used Date Smoking Tobacco: Never Smokeless Tobacco: Never Alcohol Use Standard Drinks/Week Comments No 0 (1 standard drink = 0.6 oz pur e alcohol) [facility] Utilities Answer Date Recorded In the past 12 months has [employer], gas, oil, or water company threatened [...] Total Score - Questions 1-9 0 07/23 [facility] - Occupational Stress Questionnaire Answer Date [...] Recommendations A: Received call from pharmacist at [facility] who states that it is recommended that [...] Endocrinology - [place] [address] [place] [address] Annel Rod MD #2 [facility] [address] [place] [address] documented as of this encounter Visit Diagnoses Not on filedocumented in this encounter Additional Health Concerns Assessment Noted Time PHQ-9 Depression Total Score: 0 08/02/19 25 1:09 PM CDT documented as of this encounter Care Teams Telephone Sales Agent Relationship Specialty Start Date End Date Justen Gale MD #[address] [address] PCP - General Family Medicine 10/17/17 David Roberts APRN, MUSEUM INFORMATICS SPECIALIST #2 [place] [address] Nurse Practitioner Advanced Practice Nurse 01/31/22 Annel Rod MD #[address] [address] Consulting Physician Endocrinology 07/01/22 documented as of this encounter
--- OUTSIDE RECORDS SUMMARY | 2024-11-15 19:23 | XMS_ITS ---
Author Organization [facility] Address [address] [place] [address] Care Team Providers Care Industrial Trainer Name Role Phone Liu Jerez MD Unavailable [phone] Albert Corbin MD Unavailable Justen Gale MD Primary Care Provider Khris Arthur MD Unavailable [phone] Ko Melendez MD Unavailable [phone] John Paul Moyer MD Unavailable Annel Rod MD Unavailable Anali MARSHALL MD, Carlos M. Unavailable Active Problems Problem Noted Date Diagnosed Date Urinary tract infection 05/22/2024 Assessment & Plan (05/26/2024 10:08 AM MACHINE PACKAGE SEALER): Presenting with urinary symptoms of right flank [...] Assessment & Plan (05/25/2024 7:52 AM MACHINE PACKAGE SEALER): Hx of breast cancer c/b DVT/bilateral Pes [...] Assessment & Plan (05/22/2024 1:14 PM MACHINE PACKAGE SEALER): -long-standing chronic back pain -CT L spine [...] 09/12/2021 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) 2021 [facility] (current) use 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 inhibitors 10/17/2019 Thyroid [...] without long-term current use of insulin ([facility]) 10/23/2017 Assessment & Plan (10/23/2017 2:06 [...] Assessment & Plan (05/22/2024 12:29 PM MACHINE PACKAGE SEALER): -Hx stage II, ER positive, HER2 negative [...] Assessment & Plan (05/22/2024 12:33 PM MACHINE PACKAGE SEALER): -Hx LUL -Hospital provided CPAP ordered History of DVT (deep vein thrombosis) 08/01/2017 History of pulmonary embolism 08/01/2017 Generalized weakness 07/27/2017 Dyspnea 07/27/2017 Unintentional weight loss 07/27/2017 Acute cystitis without hematuria 07/27/2017 Nausea and vomiting 07/26/2017 Overview (07/28/2017): Added automatically from request for surgery [id number] Pulmonary embolism 08/09/2016 Assessment & Plan (10/23/2017 2:05 AM CDT): On Rivaroxaban Lymphedema of left upper extremity 08/09/2016 Assessment & Plan (05/25/2024 7:53 AM MACHINE PACKAGE SEALER): S/p L axillary lymph node dissection 2014, [...] Assessment & Plan (05/22/2024 11:18 AM MACHINE PACKAGE SEALER): -continue home Requip 5mg nightly Pain of lower extremity 03/12/2013 Overview (07/29/2016): Leg pain Essential hypertension Assessment & Plan (05/23/2024 10:42 AM MACHINE PACKAGE SEALER): -Chart history of HTN but not on meds -BP elevated on admission, likely some pain contributing -Monitor closely once pain under adequate control, discussed following up with PCP for this Chronic anticoagulation Restless leg syndrome 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 Type 2 diabetes mellitus without complication Assessment & Plan (05/24/2024 1:39 PM MACHINE PACKAGE SEALER): -Last Ha1c 8.4 in 2023, repeat 8.7 [...] left female breast, unspecified estrogen receptor status (HCC)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
--- OUTSIDE RECORDS SUMMARY | 2024-11-15 19:23 | XMS_ITS | Encounter Summary ---
Author Organization [facility] Address [address] [place] [address] Phone Care Team Providers Care Interior Wall Assembler Name Role Phone Lavonne Hathaway MD Primary Care Provider + [phone] Liu Jerez MD Unavailable [phone] Albert Corbin MD Unavailable [phone] Justen Gale MD Primary Care Provider + [phone] Lavonne Hathaway MD Primary Care Provider + [phone] Justen Gale MD Primary Care Provider + [phone] Khris Arthur MD Unavailable + [phone] Ko Melendez MD Unavailable [phone] John Paul Moyer MD Unavailable Annel Rod MD Unavailable Anali MARSHALL MD, Carlos M. Unavailable [phone] Encounter Details Date Type Department Care Team ([facility] Contact Info) Description 05/15/2017 Orders Only [facility] Scanning, Provider Social History Tobacco Use Types Packs/Day Years Used Date Smoking Tobacco: Former Alcohol Use Standard Drinks/Week Comments No 0 (1 standard drink = 0.6 oz pur e alcohol) Comments Unknown Sex and Gender Information Value Date Recorded Sex Assigned at Not on file Legal Sex Female 12:24 AM FLATBED PRESS OPERATOR Gender Identity Not on file [...] COVID: Recovered 02/10/2022 02/10/2022 06/10/2022 3:05 AM FLATBED PRESS OPERATOR Exposure, COVID-19 Comment:Added automatically based on COVID19 lab answers indicating exposure risk 02/11/2022 02/11/2022 02/15/2022 9:06 AM C DT COVID: Suspected 05/14/2022 05/14/2022 05/14/2022 10:41 AM FLATBED PRESS OPERATOR COVID: Suspected 06/07/2022 06/07/2022 06/07/2022 12:28 PM FLATBED PRESS OPERATOR COVID: Suspected 06/21/2022 06/21/2022 06/21/2022 2:12 AM FLATBED PRESS OPERATOR COVID: Suspected 10/05/2022 10/05/2022 10/05/2022 7:40 PM CDT COVID: Suspected 01/04/2024 01/04/2024 01/04/2024 10:30 PM CDT COVID: Suspected 02/14/2024 02/14/2024 02/15/2024 12:36 AM CDT COVID: Suspected 07/01/2024 07/01/2024 07/01/2024 2:53 PM CDT COVID: Suspected 07/01/2024 07/01/2024 07/02/2024 3:05 AM CDT documented as of this encounter Care Teams Interior Wall Assembler Relationship Specialty Start Date End Date Lavonne Hathaway MD [address] [place] [address] [place] [address] PCP - General 08/16/16 08/17/17 Justen Gale MD [address] [facility] [address] [address] PCP - General 08/18/17 08/22/17 Lavonne Hathaway MD [address] [place] [address] [place] [address] PCP - General Family Medicine 08/23/17 10/08/17 Justen Gale MD 2 [facility] [place] [address] [address] PCP - General 10/09/17 Liu Jerez MD [address] [place] [address] [place] [address] Consulting Physician Gastroenterology 07/28/17 [place] [address] [facility] [address] [place] [address] Consulting Physician Pulmonary Disease 08/03/17 Khris Arthur MD [address] [facility] [address] [place] [address] Medical Oncologist/Department Mgr Medical Oncology 10/23/17 [place] [address] [facility] [address] [place] [address] Surgeon Orthopedic Surgery 10/23/17 [place] [address] [facility] [address] [place] [address] Consulting Physician Pain Management 10/23/17 [place] [address] [facility] [address] [place] [address] Referring Physician General Surgery 01/26/18 [place] [address] [facility] [address] [place] [address] Consulting Physician Neurology 01/26/18 documented as of this encounter
--- OUTSIDE RECORDS SUMMARY | 2024-11-15 19:23 | XMS_ITS | Encounter Summary ---
Author Organization [facility] Address [address] [place] [address] Phone Care Team Providers Care [employer] Principal Name Role Phone Justen Gale MD Primary Care Provider [phone] David Roberts APRN, MAJOR GENERAL Unavailable [phone] Annel Rod MD Unavailable Reason for Visit * Reason Comments Medication Refill Encounter Details Date Type Department Care Team (Late st Contact Info) Description 07/14/2022 [facility]ill [facility] #2 [place] [address] Justen Gale MD #[address] [address] Medication Refill Social History Tobacco Use Types [...] Visit [facility] - Endocrinology - [place] #2 [place] [address] Annel Rod MD #2 [facility] [address] [place] [address] documented as of this encounter Visit Diagnoses [...] MD #2 [facility] [address] [place] [address] PCP - General Family Medicine 10/17/17 David Roberts APRN, MAJOR GENERAL #2 [place] [address] Nurse Practitioner Advanced Practice Nurse 01/31/22 Annel Rod MD #[address] [address] Consulting Physician Endocrinology 07/01/22 documented as of this encounter
--- OUTSIDE RECORDS SUMMARY | 2024-11-15 19:23 | XMS_ITS | Encounter Summary ---
Author Organization [facility] Address [address] [place] [address] Phone Care Team Providers Care Fire Protection Engineer Name Role Phone Justen Gale MD Primary Care Provider David Roberts APRN, STAFF TRAINER Unavailable Annel Rod MD Unavailable Reason for Visit * Reason Comments Medication Refill Encounter Details Date Type Department Care Team (Late st Contact Info) Description 08/07/2023 Refill [facility]ology - [place] #2 [place] [address] Annel Rod MD #[address] [address] Medication Refill Social History Tobacco [...] Description 11/19/2024 2:00 PM CDT Office Visit [facility] - Endocrinology [facility] #2 [place] [address] Annel Rod MD #[address] [address] documented as of this encounter Visit Diagnoses Not on filedocumented in this encounter Additional Health Concerns Infection Onset Date Last Indicated Resolved Time COVID - 19 08/01/2024 08/01/2024 08/01/2024 3:20 PM CDT Assessment Noted Time PHQ-9 Depression Total Score: 8 01/18/20 23 2:24 PM CDT documented as of this encounter Care Teams Fire Protection Engineer Relationship Specialty Start Date End Date Justen Gale MD #[address] [address] PCP - General Family Medicine 10/17/17 David Roberts APRN, STAFF TRAINER #2 [place] [address] Nurse Practitioner Advanced Practice Nurse 01/31/22 Annel Rod MD #[address] [address] Consulting Physician Endocrinology 07/01/22 documented as of this encounter
--- OUTSIDE RECORDS SUMMARY | 2024-11-15 19:23 | XMS_ITS | Encounter Summary ---
Author Organization [facility] Address [address] [place] [address] Phone Care Team Providers Care Finish Remover Name Role Phone Justen Gale MD Primary Care Provider [phone] David Roberts APRN, LONG DISTANCE OPERATOR Unavailable [phone] Annel Rod MD Unavailable Reason for Visit * Reason Comments Medication Refill Encounter Details Date Type Department Care Team (Late st Contact Info) Description 09/30/2023 Refill [facility]ology - [place] #2 [place] [address] Annel Rod MD #[address] [address] Medication Refill Social History Tobacco [...] Description 11/19/2024 2:00 PM CDT Office Visit [facility] Medical [facility] - Endocrinology [facility] #2 [place] [address] Annel Rod MD #[address] [address] documented as of this encounter Visit Diagnoses Not on filedocumented in this encounter Additional Health Concerns Infection Onset Date Last Indicated Resolved Time COVID - 19 08/01/2024 08/01/2024 08/01/2024 3:20 PM CDT Assessment Noted Time PHQ-9 Depression Total Score: 8 01/18/20 23 2:24 PM CDT documented as of this encounter Care Teams Finish Remover Relationship Specialty Start Date End Date Justen Gale MD #[address] [address] PCP - General Family Medicine 10/17/17 David Roberts APRN, LONG DISTANCE OPERATOR #2 [place] [address] Nurse Practitioner Advanced Practice Nurse 01/31/22 Annel Rod MD #[address] [address] Consulting Physician Endocrinology 07/01/22 documented as of this encounter
--- OUTSIDE RECORDS SUMMARY | 2024-11-15 19:23 | XMS_ITS | Encounter Summary ---
Author Organization [facility] Address [address] [place] [address] Phone Care Team Providers Care Cnc Service Technician Name Role Phone Justen Gale MD Primary Care Provider David Roberts APRN, AND DRYING SUPERVISOR COOKING CASING Unavailable Annel Rod MD Unavailable Reason for Visit * Reason Comments Medication Refill Encounter Details Date Type Department Care Team (Late st Contact Info) Description 03/05/2023 Refill [facility] #2 [place] [address] Pili Elkins APRN, AND DRYING SUPERVISOR COOKING CASING #[address] [address] Medication Refill Social History Tobacco [...] discontinued on 10/19/2022 by Justen Gale MD RDION TUNER documented in this encounter Plan of Treatment Upcoming Encounters Date Type Department Care Team (Late st Contact Info) Description 11/19/2024 2:00 PM CDT Office Visit [facility] - Endocrinology [facility] #2 [place] [address] Annel Rod MD #2 [facility] [address] [place] [address] documented as of this encounter Visit Diagnoses Diagnosis Essential hypertension Unspecified essential hypertension documented in this encounter Additional Health Concerns Infection Onset Date Last Indicated Resolved Time COVID - 19 08/01/2024 08/01/2024 08/01/2024 3:20 PM CDT Assessment Noted Time PHQ-9 Depression Total Score: 8 01/18/20 23 2:24 PM CDT documented as of this encounter Care Teams Cnc Service Technician Relationship Specialty Start Date End Date Justen Gale MD #2 [facility] [address] [place] [address] PCP - General Family Medicine 10/17/17 David Roberts APRN, AND DRYING SUPERVISOR COOKING CASING #2 [place] [address] Nurse Practitioner Advanced Practice Nurse 01/31/22 Annel Rod MD #[address] [address] Consulting Physician Endocrinology 07/01/22 documented as of this encounter
--- OUTSIDE RECORDS SUMMARY | 2024-11-15 19:23 | XMS_ITS | Encounter Summary ---
Author Organization [facility] Address [address] [place] [address] Phone Care Team Providers Care Women'S Garment Fitter Name Role Phone Justen Gale MD Primary Care Provider [phone] David Roberts APRN, DIE OPERATOR Unavailable Annel Rod MD Unavailable Reason for Visit * Reason Onset Date Comments Breathing Problem 08/07/2024 Muscle Pain 08/07/2024 Encounter Details Date Type Department Care Team (Late st Contact Info) Description 08/07/2024 Nurse Triage [facility] [address] [place] [address] Justen Gale MD #[address] [address] Breathing Problem; Muscle Pain Social History Tobacco Use Types Packs/Day Years Used Date Smoking Tobacco: Never Smokeless Tobacco: Never Alcohol Use Standard Drinks/Week Comments No 0 (1 standard drink = 0.6 oz pur e alcohol) [facility] Utilities Answer Date Recorded In the [...] you attend chur ch or mosque services? More than 4 times [...] Total Score - Questions 1-9 0 07/23 [facility] - Occupational [...] She reports this was discussed with the manager front and provider was to be notified in [...] Encouraged caller to bring cell phone and pot puller to contact EMS 911 if symptoms [...] (e.g., disoriented, slurred speech) Protocols used: Breathing [id number] * Telephone Encounter - Neha Tomlinson - [...] Visit [facility] - Endocrinology [facility] #2 [place] [address] Annel Rod MD #[address] [address] documented as of this encounter Visit Diagnoses Not on filedocumented in this encounter Additional Health Concerns Assessment Noted Time PHQ-9 Depression Total Score: 0 08/02/19 25 1:09 PM CDT documented as of this encounter Care Teams Women'S Garment Fitter Relationship Specialty Start Date End Date Justen Gale MD #2 [facility] [address] [place] [address] PCP - General Family Medicine 10/17/17 David Roberts APRN, DIE OPERATOR #2 [place] [address] Nurse Practitioner Advanced Practice Nurse 01/31/22 Annel Rod MD #[address] [address] Consulting Physician Endocrinology 07/01/22 documented as of this encounter
--- OUTSIDE RECORDS SUMMARY | 2024-11-15 19:23 | XMS_ITS | Encounter Summary ---
Author Organization [facility] Address [address] [place] [address] Phone Care Team Providers Care Industrial Relations Worker Name Role Phone Justen Gale MD Primary Care Provider [phone] David Roberts APRN, CHAIRMAN & CO FOUNDER Unavailable [phone] Annel Rod MD Unavailable Encounter Details Date Type Department Care Team (Late st Contact Info) Description 11/14/2024 Telephone [facility] Family Medicine [facility] #2 [place] [address] Justen Gale MD #[address] [address] Social History Tobacco Use Types Packs/Day Years Used Date Smoking Tobacco: Never Smokeless Tobacco: Never Alcohol Use Standard Drinks/Week Comments No 0 (1 standard drink = 0.6 oz pur e alcohol) [facility] Utilities Answer Date Recorded In [...] you attend chur ch or voodoo services? More than 4 times [...] Total Score - Questions 1-9 0 07/23 [facility] - Occupational [...] Endocrinology - [place] #[address] [place] [address] Annel Rod MD #[address] [facility] [address] [address] documented as of this encounter Visit Diagnoses Not on filedocumented in this encounter Additional Health Concerns Assessment Noted Time PHQ-9 Depression Total Score: 0 08/02/19 25 1:09 PM CDT documented as of this encounter Care Teams Industrial Relations Worker Relationship Specialty Start Date End Date Justen Gale MD #2 [facility] [address] [place] [address] PCP - General Family Medicine 10/17/17 David Roberts, SPICE MILLER, CHAIRMAN & CO FOUNDER #2 [place] [address] Nurse Practitioner Advanced Practice Nurse 01/31/22 Annel Rod MD #2 [facility] [address] [place] [address] Consulting Physician Endocrinology 07/01/22 documented as of this encounter
--- OUTSIDE RECORDS SUMMARY | 2024-11-15 19:23 | XMS_ITS | Encounter Summary ---
Author Organization [facility] Address [address] [place] [address] Phone Care Team Providers Care Devil Dog Name Role Phone Justen Gale MD Primary Care Provider David Roberts APRN, MEDICAL IMAGING DIRECTOR Unavailable [phone] Annel Rod MD Unavailable Reason for Visit * Reason Comments Medication Refill Encounter Details Date Type Department Care Team (Late st Contact Info) Description 07/12/2022 Refill [facility] - Family Medicine [facility] #2 [place] [address] Justen Gale MD #[address] [address] Medication Refill Social History Tobacco Use Types [...] 07/05/22 Office Visit Pili Elkins APRN, NETTA [facility] [place] 05/02/22 Office Visit Justen Gale MD [facility] [place] 03/03/22 Office Visit Pili Elkins APRN, MEDICAL IMAGING DIRECTOR [facility] [place] 01/03/22 Office Visit Dannielle Berg PAC [facility] [place] 12/07/21 Office Visit Pili Elkins APRN, NETTA [facility] [place] 11/09/21 Office Visit Pili Elkins APRN, NETTA [facility] [place] 10/08/21 Office Visit Angelito Alegria APRN, NETTA [facility] [place] 08/30/21 Office Visit Justen Gale MD [facility] Showing recent visits within past 365 days [...] Medical Group - Endocrinology [facility] #2 [place] [address] Annel Rod MD #[address] [address] documented as of this encounter Visit Diagnoses Not on filedocumented in this encounter Additional Health Concerns Infection Onset Date Last Indicated Resolved Time COVID - 19 08/01/2024 08/01/2024 08/01/2024 3:20 PM CDT Assessment Noted Time PHQ-9 Depression Total Score: 0 07/21/19 21 3:00 PM CDT documented as of this encounter Care Teams Devil Dog Relationship Specialty Start Date End Date Justen Gale MD #[address] [address] PCP - General Family Medicine 10/17/17 David Roberts APRN, MEDICAL IMAGING DIRECTOR #2 [place] [address] Nurse Practitioner Advanced Practice Nurse 01/31/22 Annel Rod MD #[address] [address] Consulting Physician Endocrinology 07/01/22 documented as of this encounter
--- OUTSIDE RECORDS SUMMARY | 2024-11-15 19:23 | XMS_ITS | Encounter Summary ---
Author Organization [facility] Address [address] [place] [address] Phone Care Team Providers Care Electronics Utility Worker Name Role Phone Justen Gale MD Primary Care Provider David Roberts APRN, MILLINERY BLOCKER Unavailable Annel Rod MD Unavailable Reason for Visit * Reason Comments Medication Refill Encounter Details Date Type Department Care Team (Late st Contact Info) Description 03/13/2021 Refill [facility] [address] [place] [address] Justen Gale MD #[address] [address] Medication Refill Social History Tobacco [...] COVID-19? No / Unsure 03/02/2021 5:05 PM REHAB ASSISTANT documented as of this encounter Plan of Treatment Upcoming Encounters Date Type Department Care Team (Late st Contact Info) Description 11/19/2024 2:00 PM CDT Office Visit [facility] - Endocrinology - [place] #2 [place] [address] Annel Rod MD #2 [facility] [address] [place] [address] documented as of this encounter Visit Diagnoses Not on filedocumented in this encounter Additional Health Concerns Infection Onset Date Last Indicated Resolved Time COVID - 19 08/01/2024 08/01/2024 08/01/2024 3:20 PM CDT Assessment Noted Time PHQ-9 Depression Total Score: 0 07/21/19 21 3:00 PM CDT documented as of this encounter Care Teams Electronics Utility Worker Relationship Specialty Start Date End Date Justen Gale MD #2 [facility] [address] [place] [address] PCP - General Family Medicine 10/17/17 David Roberts, SOCK BOARDER, MILLINERY BLOCKER #2 [place] [address] Nurse Practitioner Advanced Practice Nurse 01/31/22 Annel Rod MD #[address] [address] Consulting Physician Endocrinology 07/01/22 documented as of this encounter
--- OUTSIDE RECORDS SUMMARY | 2024-11-15 19:23 | XMS_ITS | Encounter Summary ---
Author Organization [facility] Address [address] [place] [address] Phone Care Team Providers Care Windows Server Engineer Name Role Phone Justen Gale MD Primary Care Provider David Roberts APRN, RETAIL COVERAGE MERCHANDISER Unavailable Annel Rod MD Unavailable Reason for Visit * Reason Comments Medication Refill Encounter Details Date Type Department Care Team (Late st Contact Info) Description 03/02/2023 Refill [facility] - Family [facility] #2 [place] [address] Justen Gale MD #[address] [address] Medication Refill Social History Tobacco Use Types [...] Tamika Villarreal RN - 03/02/2023 8:51 AM NEWSAGENT Medication failed the protocol, provider to review [...] Dept 01/17/23 Office Visit Catrina Quiñonez MD [facility] 09/16/22 Office Visit Pili Elkins APRN, CNP [facility] 07/05/22 Office Visit Pili Elkins APRN, NETTA [facility] 05/02/22 Office Visit Justen Gale MD [facility] 03/03/22 Office Visit Pili Elkins APRN, NETTA [facility] Showing recent visits within past 365 days and meeting all other requirements Future Appointments No visits were found meeting these conditions. Showing future appointments within next 90 days and meeting all other requirements AGENT documented in this encounter Plan of Treatment Upcoming Encounters Date Type Department Care Team (Late st Contact Info) Description 11/19/2024 2:00 PM CDT Office Visit [facility] - Endocrinology - [place] #2 [place] [address] Annel Rod MD #[address] [address] documented as of this encounter Visit Diagnoses Not on filedocumented in this encounter Additional Health Concerns Infection Onset Date Last Indicated Resolved Time COVID - 19 08/01/2024 08/01/2024 08/01/2024 3:20 PM CDT Assessment Noted Time PHQ-9 Depression Total Score: 8 01/18/20 2:24 PM CDT documented as of this encounter Care Teams Windows Server Engineer Relationship Specialty Start Date End Date Justen Gale MD #2 [facility] [address] [place] [address] PCP - General Family Medicine 10/17/17 David Roberts APRN, NETTA #2 [place] [address] Nurse Practitioner Advanced Practice Nurse 01/31/22 Annel Rod MD #2 [facility] [address] [place] [address] Consulting Physician Endocrinology 07/01/22 documented as of this encounter
--- OUTSIDE RECORDS SUMMARY | 2024-11-15 19:23 | XMS_ITS | Encounter Summary ---
Author Organization [facility] Address [address] [place] [address] Phone Care Team Providers Care Supervisor Lump Room Name Role Phone Justen Gale MD Primary Care Provider David Roberts APRN, DROP WIRE OPERATOR Unavailable Annel Rod MD Unavailable Reason for Visit * Reason Onset Date Comments Sore Throat 09/02/2024 Encounter Details Date Type Department Care Team (Late st Contact Info) Description 09/02/2024 Nurse Triage [facility] [address] [place] [address] Justen Gale MD #[address] [address] Sore Throat Social History Tobacco Use Types Packs/Day Years Used Date Smoking Tobacco: Never Smokeless Tobacco: Never Alcohol Use Standard Drinks/Week Comments No 0 (1 standard drink = 0.6 oz pur e alcohol) [facility] Utilities Answer Date Recorded In the [...] How often do you attend chur or cheondoism services? More than 4 times [...] Total Score - Questions 1-9 0 07/23 [facility] - Occupational [...] Pharmacy, medications, and allergies reviewed. Discussed utilizing [employer] to: discuss if they would prefer a [employer] message or phone call response - See [...] Ulcers - Caller Reports Outcome: Transfer to travel coordinator queue Reason: Caller denied all higher acuity questions The caller accepted this outcome. Caller Denied: * Struggling for each breath (severe trouble breathing) * Can't swallow saliva (drooling) documented in this encounter Plan of Treatment Upcoming Encounters Date Type Department Care Team (Late st Contact Info) Description 11/19/2024 2:00 PM CDT Office Visit [facility] - Endocrinology - [place] #[address] [place] [address] Annel Rod MD #[address] [address] documented as of this encounter Visit Diagnoses Not on filedocumented in this encounter Additional Health Concerns Assessment Noted Time PHQ-9 Depression Total Score: 0 08/02/19 25 1:09 PM CDT documented as of this encounter Care Teams Supervisor Lump Room Relationship Specialty Start Date End Date Justen Gale MD #[address] [address] PCP - General Family Medicine 10/17/17 David Roberts, SUPERVISOR TRAIN OPERATIONS, DROP WIRE OPERATOR #2 [place] [address] Nurse Practitioner Advanced Practice Nurse 01/31/22 Annel Rod MD #[address] [address] Consulting Physician Endocrinology 07/01/22 documented as of this encounter
--- OUTSIDE RECORDS SUMMARY | 2024-11-15 19:23 | XMS_ITS | Encounter Summary ---
Author Organization [facility] Address [address] [place] [address] Phone Care Team Providers Care Honeycomb Decapper Name Role Phone Justen Gale MD Primary Care Provider David Roberts APRN, ARTIST AGENT Unavailable Annel Rod MD Unavailable Encounter Details Date Type Department Care Team (Late st Contact Info) Description 06/05/2020 Lab Requisition [facility] [address] [place] [address] Pili Elkins APRN, ARTIST AGENT #[address] [address] Frequency of micturition Social History [...] COVID-19? No / Unsure 2020 11:37 AM EVENT STAFF documented as of this encounter Plan of Treatment Upcoming Encounters Date Type Department Care Team (Late st Contact Info) Description 11/19/2024 2:00 PM CDT Office Visit [facility] - [place] #2 [place] [address] Annel Rod MD #[address] [address] documented as of this encounter Procedures Procedure Name Priority Date/Time Associated Diagnosis Comments URINALYSIS REFLEX IF INDICATED BY ABNORMAL RESULTS Routine 06/05/2020 4:45 PM EVENT STAFF Frequency of micturition documented in this encounter Results * (ABNORMAL) URINALYSIS REFLEX IF INDICATED BY ABNORMAL RESULTS (06/05/2020 4:45 PM EVENT STAFF) SPECIFIC GRAVITY 1.020 1.003 - 1.030 06/05/2020 5:19 PM EVENT STAFF [facility] URINE PH 5.0 5.0 - 9.0 06/05/2020 5:19 PM EVENT STAFF [facility] WBC ESTERASE Negative Negative 06/05/2020 5:19 PM EVENT STAFF [facility] NITRITE Negative Negative 06/05/2020 5:19 PM EVENT STAFF [facility] PROTEIN, RANDOM URINE Negative Negative 06/05/2020 5:19 PM EVENT STAFF [facility] URINE GLUCOSE, QUAL Negative Negative 06/05/2020 5:19 PM EVENT STAFF [facility] URINE KETONES Negative Negative 06/05/2020 5:19 PM EVENT STAFF [facility] UROBILINOGEN Normal Normal mg/dL 06/05/2020 5:19 PM EVENT STAFF [facility] URINE BILIRUBIN Negative Negative 5:19 PM EVENT STAFF [facility] URINE BLOOD 25 /uL(A) Negative leandro/ul 06/05/2020 5:19 PM EVENT STAFF [facility] URINALYSIS COLOR Yellow 06/05/19 5:19 PM EVENT STAFF [facility] URINALYSIS CLARITY Clear 06/05/2020 5:19 PM EVENT STAFF [facility] WBC (Urine) 0-5 Negative, 0-5 /hpf 06/05/2020 5:19 PM EVENT STAFF [facility] URINE RBC'S 3-5(A) Negative, 0-2 /hpf 06/05/2020 5:19 PM EVENT STAFF [facility] EPITHELIAL CELLS Small amount /lpf 2020 5:19 PM EVENT STAFF [facility] BACTERIA, URINE Few(A) Negative /hpf 06/05/2020 5:19 PM EVENT STAFF [facility] Urine URINE SPECIMEN / Unknown Non-Phlebotomy Collection / Unknown 06/05/2020 4:45 PM EVENT STAFF 06/05/2020 5:00 PM EVENT STAFF us Pili Elkins APRN, CNP URINE ORDERABLES Fin al Result [facility] #1 [facility] [place] [address] documented in this encounter Visit Diagnoses Diagnosis Frequency of micturition Urinary frequency documented in this encounter Additional Health Concerns Infection Onset Date Last Indicated Resolved Time COVID - 19 08/01/2024 08/01/2024 08/01/2024 3:20 PM CDT Assessment Noted Time PHQ-9 Depression Total Score: 0 09/08/19 1:00 PM CDT documented as of this encounter Care Teams Honeycomb Decapper Relationship Specialty Start Date End Date Justen Gale MD #[address] [address] PCP - General Family Medicine 10/17/17 David Roberts APRN, ARTIST AGENT #2 [facility] [place] [address] Nurse Practitioner Advanced Practice Nurse 01/31/22 Annel Rod MD #[address] [phone] Consulting Physician Endocrinology 07/01/22 documented as of this encounter
--- OUTSIDE RECORDS SUMMARY | 2024-11-15 19:23 | XMS_ITS | Encounter Summary ---
Author Organization [facility] Address [address] [place] [address] Phone Care Team Providers Care Neonatal Icu Coordinator Name Role Phone Justen Gale MD Primary Care Provider David Roberts APRN, HORTICULTURAL SPECIALTY GROWER INSIDE Unavailable [phone] Annel Rod MD Unavailable Reason for Visit * Reason Comments Medication Refill Encounter Details Date Type Department Care Team (Late st Contact Info) Description 10/24/2022 Refill [facility] #2 [place] [address] Pili Elkins APRN, HORTICULTURAL SPECIALTY GROWER INSIDE #[address] [address] Medication Refill Social History Tobacco [...] [facility] - Endocrinology - [place] #2 [place] [address] Annel Rod MD #[address] [address] documented as of this encounter Visit Diagnoses Diagnosis Essential hypertension Unspecified essential hypertension documented in this encounter Additional Health Concerns Infection Onset Date Last Indicated Resolved Time COVID - 19 08/01/2024 08/01/2024 08/01/2024 3:20 PM CDT Assessment Noted Time PHQ-9 Depression Total Score: 0 09/17/19 11:00 AM CDT documented as of this encounter Care Teams Neonatal Icu Coordinator Relationship Specialty Start Date End Date Justen Gale MD #2 [facility] [address] [place] [address] PCP - General Family Medicine 10/17/17 David Roberts, TILE DESIGNER, HORTICULTURAL SPECIALTY GROWER INSIDE #2 [place] [address] Nurse Practitioner Advanced Practice Nurse 01/31/22 Annel Rod MD #[address] [address] Consulting Physician Endocrinology 07/01/22 documented as of this encounter
--- OUTSIDE RECORDS SUMMARY | 2024-11-15 19:23 | XMS_ITS | Encounter Summary ---
Author Organization [facility] Address [address] [place] [address] Phone Care Team Providers Care Asbestos Shingle Roofer Name Role Phone Justen Gale MD Primary Care Provider [phone] David Roberts APRN, TOOL GRINDER OPERATOR Unavailable Annel Rod MD Unavailable Reason for Visit * Reason Comments Medication Refill Encounter Details Date Type Department Care Team (Late st Contact Info) Description 02/17/2021 Refill [facility] Family [facility] #2 [place] [id number] Justen Gale MD #[address] [address] Medication Refill Social History Tobacco Use Types [...] Mcgee 06/05/20 Office Visit Pili Elkins APRN, TOOL GRINDER OPERATOR [facility] Showing recent visits within past 365 days and meeting all other requirements Future Appointments Date Type Provider Dept 03/02/21 Appointment Vince Hermosillo MD [facility] Showing future appointments within next 90 days and meeting all other requirements documented in this encounter Plan of Treatment Upcoming Encounters Date Type Department Care Team (Late st Contact Info) Description 11/19/2024 2:00 PM CDT Office Visit [facility] - [place] #2 [place] [address] Annel Rod MD #[address] [address] documented as of this encounter Visit Diagnoses Not on filedocumented in this encounter Additional Health Concerns Infection Onset Date Last Indicated Resolved Time COVID - 19 08/01/2024 08/01/2024 08/01/2024 3:20 PM CDT Assessment Noted Time PHQ-9 Depression Total Score: 0 07/21/19 3:00 PM CDT documented as of this encounter Care Teams Asbestos Shingle Roofer Relationship Specialty Start Date End Date Justen Gale MD #2 [facility] [address] [place] [address] PCP - General Family Medicine 10/17/17 David Roberts APRN, TOOL GRINDER OPERATOR #2 [place] [address] Nurse Practitioner Advanced Practice Nurse 01/31/22 Annel Rod MD #[address] [address] Consulting Physician Endocrinology 07/01/22 documented as of this encounter
--- OUTSIDE RECORDS SUMMARY | 2024-11-15 19:23 | XMS_ITS | Encounter Summary ---
Author Organization [facility] Address [address] [place] [address] Phone Care Team Providers Care Assistant Activities Director Name Role Phone Justen Gale MD Primary Care Provider David Roberts APRN, ELECTRONIC DEVELOPMENT TECHNICIAN Unavailable Annel Rod MD Unavailable Reason for Visit * Reason Onset Date Comments Sore Throat 06/29/2020 Encounter Details Date Type Department Care Team (Late st Contact Info) Description 06/29/2020 Telephone [facility] [place] #2 [place] [address] Justen Gale MD #[address] [address] Sore Throat Social History Tobacco Use Types [...] COVID-19? No / Unsure 06/29/2020 8:43 AM ATTENUATOR documented as of this encounter Miscellaneous Notes * Telephone Encounter - Gail Lucero RN - 06/29/2020 3:53 PM CST Attempted to call mailbox is full. Pt does not need testing NUATOR * Telephone Encounter - Vince Hermosillo MD - 06/29/2020 3:13 PM CST No covid testing needed. If the er thought that it was warranted then they would have done this. NUATOR * Telephone Encounter - Marlys Sorensen RN - 06/29/2020 8:36 AM CST Patient calling. Patient is calling to schedule Hospital/ED/Prompt-Care follow up appointment. Hospital/ED/Prompt-Care Site: [facility] ED Records Requested: Yes Reason for Hospitalization/ED/Prompt-Care [...] f/up and yearly PAP appointments? Please advise. NUATOR documented in this encounter Plan of Treatment Upcoming Encounters Date Type Department Care Team (Late st Contact Info) Description 11/19/2024 2:00 PM CDT Office Visit [facility] - Endocrinology [facility] #2 [place] [address] Annel Rod MD #2 [facility] [address] [place] [address] documented as of this encounter Visit Diagnoses Not on filedocumented in this encounter Additional Health Concerns Infection Onset Date Last Indicated Resolved Time COVID - 19 08/01/2024 08/01/2024 08/01/2024 3:20 PM CDT Assessment Noted Time PHQ-9 Depression Total Score: 0 09/08/19 1:00 PM CDT documented as of this encounter Care Teams Assistant Activities Director Relationship Specialty Start Date End Date Justen Gale MD #2 [facility] [address] [place] [address] PCP - General Family Medicine 10/17/17 David Roberts APRN, NETTA #2 [place] [address] Nurse Practitioner Advanced Practice Nurse 01/31/22 Annel Rod MD #[address] [address] Consulting Physician Endocrinology 07/01/22 documented as of this encounter
--- OUTSIDE RECORDS SUMMARY | 2024-11-15 19:23 | XMS_ITS | Clinical Summary ---
Author Organization [facility] Address [address] [place] [address] Care Team Providers Care Chucking And Sawing Machine Operator Name Role Phone Liu Jerez MD Unavailable Albert Corbin MD Unavailable [phone] Justen Gale MD Primary Care Provider Khris Arthur MD Unavailable [phone] Ko Melendez MD Unavailable John Paul Moyer [...] 05/22/2024 Assessment & Plan (05/26/2024 10:08 AM CRIMINAL PROFILER): Presenting with urinary symptoms of right flank [...] 05/22/2024 Assessment & Plan (05/25/2024 7:52 AM CRIMINAL PROFILER): Hx of breast cancer c/b DVT/bilateral Pes [...] 05/22/2024 Assessment & Plan (05/22/2024 1:14 PM CRIMINAL PROFILER): -long-standing chronic back pain -CT L spine [...] complication, without long-term current use of insulin ([facility]) 10/23/2017 Assessment & Plan (10/23/2017 [...] 10/13/2017 Assessment & Plan (05/22/2024 12:29 PM CRIMINAL PROFILER): -Hx stage II, ER positive, HER2 negative [...] 08/01/2017 Assessment & Plan (05/22/2024 12:33 PM CRIMINAL PROFILER): -Hx LUL -Hospital provided CPAP ordered History of DVT (deep vein thrombosis) 08/01/2017 History of pulmonary embolism 08/01/2017 Generalized weakness 07/27/2017 Dyspnea 07/27/2017 Unintentional weight loss 07/27/2017 Acute cystitis without hematuria 07/27/2017 Nausea and vomiting 07/26/2017 Overview (07/28/2017): Added automatically from request for surgery [id number] Pulmonary embolism 08/09/2016 Assessment & Plan (10/23/2017 2:05 AM CDT): On Rivaroxaban Lymphedema of left upper extremity 08/09/2016 Assessment & Plan (05/25/2024 7:53 AM CRIMINAL PROFILER): S/p L axillary lymph node dissection 2014, [...] syndrome Assessment & Plan (05/22/2024 11:18 AM CRIMINAL PROFILER): -continue home Requip 5mg nightly Pain of lower extremity 03/12/2013 Overview (07/29/2016): Leg pain Essential hypertension Assessment & Plan (05/23/2024 10:42 AM CRIMINAL PROFILER): -Chart history of HTN but not on meds -BP elevated on admission, likely some pain contributing -Monitor closely once pain under adequate control, discussed following up with PCP for this Chronic anticoagulation Restless leg syndrome 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 Type 2 diabetes mellitus without complication Assessment & Plan (05/24/2024 1:39 PM CRIMINAL PROFILER): -Last Ha1c 8.4 in 2023, repeat 8.7 [...] drink = 0.6 oz pur e alcohol) [facility] Online Orderingities Answer Date Recorded In the past 12 months has [employer], gas, oil, or water [employer] threatened to shut off services in your [...] you attend chur ch or rastafarian services? More than 4 times per year [...] the past 12 m [facility], were you homeless or living [...] on file Legal Sex Female 12:24 AM CRIMINAL PROFILER Gender Identity Not on file Sexual Orientation [...] CDT HEMOGLOBIN A1C STAT 05/21/2024 4:20 PM CRIMINAL PROFILER LIPID PANEL STAT 05/21/2024 4:20 PM CRIMINAL PROFILER DEXA AXIAL SKELETON BONE DENSITY 1 OR [...] 2021. Testing performed by: [facility], [address] [place] [address]., [address] Blood 07/01/2024 2:02 PM CDT 07/01/2024 2:12 PM CDT us Ilana Stevens MD LAB BLOOD ORDERABLES F inal Result [facility] [address] [facility] Department [place] [address] * (ABNORMAL) Hemoglobin A1c (05/21/2024 4:20 PM CRIMINAL PROFILER) Hgb A1C 8.7(H) 4.0 - 5.6 % Estimated Average Glucose 203 mg/dL [facility] Comment: The ADA recommends reporting an estimated Average Glucose (eAG) with all Hemoglobin A1c results using the equation derived from a study of 507 normal and diabetic adults. Minority populations were underrepresented and children were not included. (Diabetes Care 2020; 43(S1): S66-S76). The eAG is not equivalent to a fasting glucose. Blood 05/21/2024 4:20 PM CRIMINAL PROFILER 05/21/2024 4:55 PM CRIMINAL PROFILER us Leo Henry MD LAB BLOOD ORDERABLES Final Result [facility] Department [place] [address] * (ABNORMAL) Lipid panel (05/21/2024 4:20 PM CRIMINAL PROFILER) Cholesterol 205(H) 30 - 199 mg/dL Comment: [...] 2017. Triglycerides 92 <=149 mg/dL [facility] Comment: Interpretive Data Ages [...] 2017. HDL 55 >=40 mg/dL [facility] Comment: Interpretive Data Ages [...] LDL, calculated 134(H) <=129 mg/dL [facility] Comment: Interpretive Data Ages [...] revised on 2023. Non-HDL Cholesterol 150 mg/dL [facility] Comment: Interpretive Data Ages < [...] last revised on 2017. Chol/HDL ratio 4 [facility] Blood 05/21/2024 4:20 PM CRIMINAL PROFILER 05/21/2024 4:50 PM CRIMINAL PROFILER Narrative [facility] - 05/22/2024 4:17 PM CRIMINAL PROFILER Reflex us Leo Henry MD LAB BLOOD ORDERABLES Final Result [facility] Department [place] [address] * Dexa Axial Skeleton Bone Density 1 or 2 Site (08/02/2022 10:53 AM CDT) Anatomical Region Laterality Modality Body N/A Radiographic Lizeth ging Narrative 08/02/2022 3:34 PM CDT Patient Name: Karly Marques Date of : 1955 Date of scan: 08/02/2022 Bone mineral density was performed on a [employer] Discovery Densitometer. Based on machine cross-calibration [...] by the International Society of Clinical Densitometry. [id number] us Khris Arthur MD IMG DXA PROCEDURES [...] agrees with it. ACC# Date Time Exam [id number] Aug 19, 2016 14:27:00 [facility] [id number] Dia Mamm, inc CAD, unilat L Technologist(s): Carla Harris; ; [id number] Aug 19, 2016 15:39:00 [facility] 47581 Breast US unilateral, ltd L ACC# Date Time Exam [id number] Aug 19, 2016 14:27:00 [facility] [address] Dia Mamm, inc CAD, unilat L Technologist(s): Carla Harris; ; [id number] Aug 19, 2016 15:39:00 [facility] 63395 Breast US unilateral, ltd L EXAMINATION: LEFT [...] SARABIA M.D. on Aug 19 2016 4:20P [id number] Procedure Note Miscellaneous, Not In File / Provider, MD Tyler - 09/17/2016 ANTHONY SARABIA M.D. JUDY RINCON M.D. FINAL REPORT The radiology attending physician has personally reviewed this study, and has reviewed and/or edited this written report and agrees with it. ACC# Date Time Exam [id number] Aug 19, 2016 14:27:00 [facility] 399[address] Diag Mamm, inc CAD, unilat L Technologist(s): Carla Harris; ; [id number] Aug 19, 2016 15:39:00 [facility] 28410 Breast US unilateral, ltd L ACC# Date Time Exam [id number] Aug 19, 2016 14:27:00 [facility] 78199 Diag Mamm, inc CAD, unilat L Technologist(s): Carla Harris; ; [id number] Aug 19, 2016 15:39:00 [facility] [address]76 Breast US unilateral, ltd L EXAMINATION: LEFT [...] SARABIA M.D. on Aug 19 2016 4:20P [id number] us Not In File Miscellaneous IMG MAMMO PROCEDURES F inal Result from Last 3 Months or Most Recently Relevant to Health Maintenance Insurance IDPA [facility] MEDICARE ADVANTAGE [facility] MEDICARE ADVANTAGE [facility] MEDICARE ADVANTAGE Advance Directives For more information, please contact: [phone] Documents on File Type Date Recorded Patient Sand Control Worker Expl anation ADVANCE DIRECTIVE 12/23/2021 2:49 PM Power of Kitchen Utility Associate-Medical ADVANCE DIRECTIVE 12/23/2021 2:49 PM Living Will [...] Agents on File Name Relationship [facility] Agent [facility] Yunior Marques Daughter Health Care Agent Jimmie Marques Spouse First Alternate Health Care Agent Care Teams Chucking And Sawing Machine Operator Relationship Specialty Start Date End Date Justen Gale MD 2 [facility] [address] [place] [address] PCP - General 10/09/17 Liu Jerez MD Consulting Physician Gastroenterology 07/28/17 [place] [address] [facility] [address] [place] [address] Consulting Physician Pulmonary Disease 08/03/17 [place] [address] [place] [address] [address] [place] [address] Medical Oncologist/Patent Paralegal Medical Oncology 10/23/17 [place] [address] [facility] [address] [place] [address] Surgeon Orthopedic Surgery 10/23/17 [place] [address] [address] Consulting Physician Pain Management 10/23/17 [place] [address] [address] Referring Physician General Surgery 01/26/18 [place] [address] [facility] [address] [place] [address] Consulting Physician Neurology 01/26/18
--- OUTSIDE RECORDS SUMMARY | 2024-11-15 19:23 | XMS_ITS | Encounter Summary ---
Author Organization [facility] Address [address] [place] [address] Phone Care Team Providers Care Aquaculture And Fisheries Professor Name Role Phone Justen Gale MD Primary Care Provider [phone] David Roberts APRN, INSECT CONTROL INSPECTOR Unavailable [phone] Annel Rod MD Unavailable Reason for Visit * Reason Onset Date Comments Pain 09/23/2024 Encounter Details Date Type Department Care Team (Late st Contact Info) Description 09/23/2024 Telephone [facility] [address] [place] [address] Justen Gale MD #[address] [address] Pain Social History Tobacco Use Types Packs/Day Years Used Date Smoking Tobacco: Never Smokeless Tobacco: Never Alcohol Use Standard Drinks/Week Comments No 0 (1 standard drink = 0.6 oz pur e alcohol) [facility] Utilities Answer Date Recorded In the past 12 months has [employer] electric, gas, oil, or water company threatened [...] How often do you attend chur or yazidi services? More than 4 times [...] any time in the past 12 m [facility], were you homeless or [...] - patient has RA Outcome: Transfer to superintendent compressor stations queue Reason: Caller denied all higher acuity [...] Endocrinology [facility] #2 [place] [address] Annel Rod MD #2 [facility] [address] [place] [address] documented as of this encounter Visit Diagnoses Not on filedocumented in this encounter Additional Health Concerns Assessment Noted Time PHQ-9 Depression Total Score: 0 08/02/19 25 1:09 PM CDT documented as of this encounter Care Teams Aquaculture And Fisheries Professor Relationship Specialty Start Date End Date Justen Gale MD #2 [facility] [address] [place] [address] PCP - General Family Medicine 10/17/17 David Roberts APRN, INSECT CONTROL INSPECTOR #2 [place] [address] Nurse Practitioner Advanced Practice Nurse 01/31/22 Annel Rod MD #2 [place] [address] Consulting Physician Endocrinology 07/01/22 documented as of this encounter
--- OUTSIDE RECORDS SUMMARY | 2024-11-15 19:23 | XMS_ITS | Encounter Summary ---
Author Organization [facility] Address [address] [place] [address] Phone Care Team Providers Care Food And Beverage Analyst Name Role Phone Liu Jerez MD Unavailable Albert Corbin MD Unavailable Justen Gale MD Primary Care Provider Khris Arthur MD Unavailable [phone] Ko Melendez MD Unavailable John Paul Moyer MD Unavailable Annel Rod MD Unavailable Anali MARSHALL MD, Carlos M. Unavailable [phone] Encounter Details Date Type Department Care Team [...] on file Legal Sex Female 12:24 AM BEREAVEMENT PROGRAM COORDINATOR Gender Identity Not on file [...] COVID: Recovered 02/10/2022 02/10/2022 06/10/2022 3:05 AM BEREAVEMENT PROGRAM COORDINATOR Exposure, COVID-19 Comment:Added automatically based on COVID19 lab answers indicating exposure risk 02/11/2022 02/11/2022 02/15/2022 9:06 AM C DT COVID: Suspected 05/14/2022 05/14/2022 05/14/2022 10:41 AM BEREAVEMENT PROGRAM COORDINATOR COVID: Suspected 06/07/2022 06/07/2022 06/07/2022 12:28 PM BEREAVEMENT PROGRAM COORDINATOR COVID: Suspected 06/21/2022 06/21/2022 06/21/2022 2:12 AM BEREAVEMENT PROGRAM COORDINATOR COVID: Suspected 10/05/2022 10/05/2022 10/05/2022 7:40 PM CDT COVID: Suspected 01/04/2024 01/04/2024 01/04/2024 10:30 PM CDT COVID: Suspected 02/14/2024 02/14/2024 02/15/2024 12:36 AM CDT COVID: Suspected 07/01/2024 07/01/2024 07/01/2024 2:53 PM CDT COVID: Suspected 07/01/2024 07/01/2024 07/02/2024 3:05 AM CDT documented as of this encounter Care Teams Food And Beverage Analyst Relationship Specialty Start Date End Date Justen Gale MD 2 [facility] [address] [place] [address] PCP - General 10/09/17 Liu Jerez MD Consulting Physician Gastroenterology 07/28/17 [place] [address] [facility] [address] [place] [address] Consulting Physician Pulmonary Disease 08/03/17 [place] [address] [place] [address] [address] [place] [address] Medical Oncologist/Pattern Changer Medical Oncology 10/23/17 [place] [address] [address] Surgeon Orthopedic Surgery 10/23/17 [place] [address] [facility] [address] [place] [address] Consulting Physician Pain Management 10/23/17 [place] [address] [address] Referring Physician General Surgery 01/26/18 [place] [address] [facility] [address] [place] [address] Consulting Physician Neurology 01/26/18 documented as of this encounter
--- OUTSIDE RECORDS SUMMARY | 2024-11-15 19:23 | XMS_ITS | Encounter Summary ---
Author Organization [facility] Address [address] [place] [address] Phone Care Team Providers Care Market Editor Name Role Phone Justen Gale MD Primary Care Provider David Roberts APRN, DATA COLLECTION TECHNICIAN Unavailable Annel Rod MD Unavailable Reason for Visit * Reason Comments Medication Refill Encounter Details Date Type Department Care Team (Late st Contact Info) Description 08/30/2022 Refill [facility] #2 [place] [address] Justen Gale MD #[address] [address] Medication Refill Social History Tobacco Use Types [...] [place] 05/02/22 Office Visit Justen Gale MD [facility] [place] 03/03/22 Office Visit Pili Elkins APRN, NETTA [facility] [place] 01/03/22 Office Visit Dannielle Berg PAC [facility] [place] 12/07/21 Office Visit Pili Elkins APRN, NETTA [facility] [place] 11/09/21 Office Visit Pili Elkins APRN, NETTA [facility] [place] 10/08/21 Office Visit Angelito Alegria APRN, NETTA [facility] [place] 08/30/21 [facility] within past 365 [...] Visit [facility] - Endocrinology - [place] [address] [place] [address] Annel Rod MD #2 [facility] [address] [place] [address] documented as of this encounter Visit Diagnoses Not on filedocumented in this encounter Additional Health Concerns Infection Onset Date Last Indicated Resolved Time COVID - 19 08/01/2024 08/01/2024 08/01/2024 3:20 PM CDT Assessment Noted Time PHQ-9 Depression Total Score: 0 07/21/19 3:00 PM CDT documented as of this encounter Care Teams Market Editor Relationship Specialty Start Date End Date Justen Gale MD [address] [address] PCP - General Family Medicine 10/17/17 David Roberts, TICKET SPECULATOR, DATA COLLECTION TECHNICIAN [facility] [place] [address] Nurse Practitioner Advanced Practice Nurse 01/31/22 Annel Rod MD [address] [address] Consulting Physician Endocrinology 07/01/22 documented as of this encounter
--- OUTSIDE RECORDS SUMMARY | 2024-11-15 19:23 | XMS_ITS | Encounter Summary ---
Author Organization [facility] Address [address] [place] [address] Phone Care Team Providers Care Shaker Tender Name Role Phone Justen Gale MD Primary Care Provider [phone] David Roberts APRN, TURKISH RUBBER Unavailable [phone] Annel Rod MD Unavailable Reason for Visit * Reason Comments Medication Refill Encounter Details Date Type Department Care Team (Late st Contact Info) Description 02/07/2020 Refill [facility] [address] [place] [address] Justen Gale MD #[address] [address] Medication Refill Social History Tobacco Use Types [...] - Endocrinology [facility] #2 [place] [address] Annel Rod MD #[address] [address] documented as of this encounter Visit Diagnoses Not on filedocumented in this encounter Additional Health Concerns Infection Onset Date Last Indicated Resolved Time COVID - 19 08/01/2024 08/01/2024 08/01/2024 3:20 PM CDT Assessment Noted Time PHQ-9 Depression Total Score: 0 09/08/19 19 1:00 PM CDT documented as of this encounter Care Teams Shaker Tender Relationship Specialty Start Date End Date Justen Gale MD #2 [facility] [address] [place] [address] PCP - General Family Medicine 10/17/17 David Roberts, ROAD BOSS, TURKISH RUBBER #2 [place] [address] Nurse Practitioner Advanced Practice Nurse 01/31/22 Annel Rod MD #[address] [address] Consulting Physician Endocrinology 07/01/22 documented as of this encounter
--- OUTSIDE RECORDS SUMMARY | 2024-11-15 19:23 | XMS_ITS | Encounter Summary ---
Author Organization [facility] Address [address] [place] [address] Phone Care Team Providers Care Commercial Underwriter Name Role Phone Justen Gale MD Primary Care Provider David Roberts APRN, DOCTOR OF NURSE ANESTHESIA Unavailable Annel Rod MD Unavailable Reason for Visit * Reason Comments Medication Refill Encounter Details Date Type Department Care Team (Late st Contact Info) Description 07/06/2023 Refill [facility] - Family [facility] #2 [place] [address] Justen Gale MD #[address] [address] Medication Refill Social History Tobacco Use Types [...] AM CDT Medication[facility]) [facility] Med[facility] Refill Standing Order for [...] Dept 06/27/23 Office Visit Justen Gale MD [facility] [place] 01/17/23 Office Visit Catrina Quiñonez MD [facility] [place] Showing recent visits within past [...] Endocrinology - [place] #[address] [place] [address] Annel Rod MD #[address] [place] [address] documented as of this encounter Visit Diagnoses Not on filedocumented in this encounter Additional Health Concerns Infection Onset Date Last Indicated Resolved Time COVID - 19 08/01/2024 08/01/2024 08/01/2024 3:20 PM CDT Assessment Noted Time PHQ-9 Depression Total Score: 8 01/18/20 2:24 PM CDT documented as of this encounter Care Teams Commercial Underwriter Relationship Specialty Start Date End Date Justen Gale MD #2 [facility] [place] [address] [place] [address] PCP - General Family Medicine 10/17/17 David Roberts APRN, DOCTOR OF NURSE ANESTHESIA #2 [place] [address] Nurse Practitioner Advanced Practice Nurse 01/31/22 Annel Rod MD #2 [facility] [place] [address] [place] [address] Consulting Physician Endocrinology 07/01/22 documented as of this encounter
--- OUTSIDE RECORDS SUMMARY | 2024-11-15 19:23 | XMS_ITS | Encounter Summary ---
Author Organization [facility] Address [address] [place] [address] Phone Care Team Providers Care Graduate Teacher Education Name Role Phone Justen Gale MD Primary Care Provider David Roberts APRN, MARINE TECHNICIAN Unavailable [phone] Annel Rod MD Unavailable Reason for Visit * Reason Comments Medication Refill Encounter Details Date Type Department Care Team (Late st Contact Info) Description 02/07/2023 Refill [facility] Family Medicine [facility] #2 [place] [address] Pili Elkins APRN, MARINE TECHNICIAN #[address] [address] Medication Refill Social History Tobacco [...] Visit [facility] - Endocrinology - [place] #2 [place] [address] Annel Rod MD #[address] [address] documented as of this encounter Visit Diagnoses Diagnosis Essential hypertension Unspecified essential hypertension documented in this encounter Additional Health Concerns Infection Onset Date Last Indicated Resolved Time COVID - 19 08/01/2024 08/01/2024 08/01/2024 3:20 PM CDT Assessment Noted Time PHQ-9 Depression Total Score: 8 01/18/20 23 2:24 PM CDT documented as of this encounter Care Teams Graduate Teacher Education Relationship Specialty Start Date End Date Justen Gale MD #2 [facility] [address] [place] [address] PCP - General Family Medicine 10/17/17 David Roberts APRN, MARINE TECHNICIAN #2 [place] [address] Nurse Practitioner Advanced Practice Nurse 01/31/22 Annel Rod MD #[address] [phone] Consulting Physician Endocrinology 07/01/22 documented as of this encounter
--- OUTSIDE RECORDS SUMMARY | 2024-11-15 19:23 | XMS_ITS | Clinical Summary ---
Author Organization [facility] Address [facility] [place] [address] Care Team Providers Care Managed Care Specialist Name Role Phone Meena Bansal MD Unavailable [phone] Justen Gale MD Primary Care Provider [phone] Allergies Active Allergy Reactions Criticality Noted Date [...] reflux disease 09/05/2020 Malignant tumor of breast ([facility]/HCC [facility]) 08/22 Knee pain 09/05/2020 [...] 03/18/2018 Assessment & Plan (03/18/2018 2:55 AM BOILER ROOM HELPER): Acute, patient reported as epigastric pain however may be atypical presentation. Troponins negative x2. Also in differential is GERD, PUD - Admit to observation -Follow-up troponins -Monitor vitals -N.p.o. at midnight - Stress echo in a.m. - Consider cardiology consult based on results of stress test -Begin Protonix Epigastric pain 03/18/2018 Assessment & Plan (03/18/2018 5:39 AM BOILER ROOM HELPER): Acute, non radiating, worsens with lying down, [...] Speech impairment 01/30/2018 CVA (cerebral vascular accident) ([facility] HHS/ C) 01/24/2018 Neck pain on right side 12/01/2017 Anxiety and depression 11/12/2017 Chronic anticoagulation 11/09/2017 Constipation 11/09/2017 Uncontrolled type 2 diabetes mellitus with hyperglycemia, with long-term current use of insulin ([facility]) 11/06/2017 terminal gauger (current) use 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 inhibitors 10/23/2017 Lumbosacral [...] upper- 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 ([facility] HHS/HCC) 10/17/2017 Assessment & Plan (08/31/2018 12:24 AM CDT): S/p masectomy. -continue exemestane Acute deep vein thrombosis ( DVT) of proximal vein of right lower extremity ([facility]) 10/17/2017 Dysuria 10/17/2017 Hyperthyroidism 10/17/2017 Cancer of overlapping sites of left female breast ([facility]) 10/13/2017 Syncope 09/29/2017 High blood pressure 08/22/2017 Overview (09/05/2020): Last Assessment & Plan: On lisinopril Last Assessment & Plan: On lisinopril Assessment & Plan (08/30/2018 9:57 PM CDT): Chronic. Controlled. -continue home medications Assessment & Plan (03/18/2018 2:51 AM BOILER ROOM HELPER): Chronic, BPs currently 127/78 - To new home meds Morbid obesity with BMI of 50.0-59.9, adult 04/2017 Sepsis ([facility]) 08/22/2017 Type 2 diabetes mellitus ([facility]) 08/22 Overview (09/05/2020): Last Assessment & Plan: Hold janument. Start on SSI and accucheks Assessment & Plan (08/30/2018 10:01 PM CDT): Chronic. Controlled. -continue home insulin regimen of lantus 50 units q am -lispro 20 units with breakfast and lunch. 22 units with dinner. Assessment & Plan (03/18/2018 2:53 AM BOILER ROOM HELPER): Chronic, patient reports medical compliance with 50 units of Lantus daily and 15 units of Humalog before meals. No recent HbA1c - Monitor POC glucose -[place] home regimen - Consider sliding scale insulin -Follow-up HbA1c Bronchitis 08/20/2017 LUL (obstructive sleep apnea) 08/01/2017 Assessment & Plan (03/18/2018 2:54 AM BOILER ROOM HELPER): Chronic, on CPAP at home - Continue home CPAP History of DVT (deep vein thrombosis) 08/01/2017 Assessment & Plan (03/18/2018 2:54 AM BOILER ROOM HELPER): Chronic - Continue home Xarelto Chest pressure 08/01/2017 Diet-controlled diabetes mellitus ([facility] HHS/H CC) 08/01/2017 History of pulmonary embolism 08/01/2017 Hyponatremia 08/01/2017 Positive blood culture 08/01/2017 Acute pharyngitis 07/27/2017 Generalized weakness 07/27/2017 Nausea and vomiting 07/26/2017 Overview (09/05/2020): Overview: Overview: Added automatically from request for surgery [id number] Overview: Added automatically from request for surgery [id number] Added automatically from request for surgery [id number] Neuropathy 07/05/2017 History of breast cancer 02/06/2017 Pulmonary embolism ([facility]) 08/09/2016 Overview (09/05/2020): Last Assessment [...] syndrome Assessment & Plan (03/18/2018 2:54 AM BOILER ROOM HELPER): Chronic -Continue home ropinirole Pain of lower [...] 0.6 oz pur e alcohol) [facility] Utilities Answer Date Recorded In the past 12 months has [employer] gas, oil, or water Financial Guard threatened to shut off services in your [...] living in a residential (including now)? No 10/13/2023 Comments No Sex and Gender Information Value Date Recorded Sex Assigned at Female 09/06/2020 12:50 AM CDT Legal Sex Female 10:47 AM CDT Gender Identity Female 09/06/2020 12:50 AM CDT Sexual Orientation Straight 03/18/2018 3: 01 AM BOILER ROOM HELPER Last Filed Vital Signs Vital Sign Reading [...] % 10/14/2023 5:50 AM CDT [facility] Comment: ADA GUIDELINES 2010 5.7 TO 6.4% INCREASED RISK OF DIABETES > OR = 6.5% CONSISTENT WITH DIABETES ESTIMATED AVG GLUCOSE 183 mg/dL 10/14/2023 5:50 AM CDT [facility] 10/14/2023 3:40 AM CDT us Peggy Bland MD LABORATORY Final Result [facility] [address] [place] [address], [place] [phone] * LIPID PANEL (10/14/2023 3:40 AM CDT) CHOLESTEROL 164 <200 MG/DL 10/14/2023 4:31 AM CDT [facility] TRIGLYCERIDES 114 <150 MG/DL 10/14/2023 4:31 AM CDT [facility] HDL 46 >40.0 MG/DL 10/14/2023 4:31 AM CDT [facility] LDL (CALCULATED) 95 <100 MG/DL 10/14/19 4:31 AM CDT [facility] NON HDL CHOLESTEROL 118 <130 MG/DL 10/13 4:31 AM T [facility] CHOL/HDL RATIO 3.6 0.0 - 4.5 10/14/2023 4:31 AM T [facility] VLDL CALCULATION 23 5 - 55 MG/DL 10/14/2023 4:31 AM CDT [facility] LIPID INTERPRETATION 10/14/2023 4:31 AM T [facility] Comment: NIH CONCENSUS REPORT RECOMMENDATIONS: ADULT CHILD LOW RISK: CHOLESTEROL <200 <170 TRIGLYCERIDE <150 --- HDL >=60 --- LDL <100 <110 BORDERLINE: CHOLESTEROL 200-239 170-199 TRIGLYCERIDE 150-199 --- HDL 40-59 --- LDL 100-159 110-129 HIGH RISK: CHOLESTEROL >=240 >=200 TRIGLYCERIDE >=200 --- HDL <40 --- LDL >=160 >=130 10/14/2023 3:40 AM CDT Peggy Bland MD LABORATORY Final Result [facility] [address] [place] [address], from Last 3 Months or Most Recently Relevant to Health Maintenance Insurance [place] [address] [place] [id number] [place] [address] Advance Directives * Full Code (Latest Code [...] 2:42 AM 03/18/2018 4:50 PM Care Teams Managed Care Specialist Relationship Specialty Start Date End Date Justen Gale MD [address] [address] PCP - General FAMILY PRACTICE 08/20/17 Meena Bansal MD [address] [facility] [address] [place] [address] Hubbard Doula CARDIOVASCULAR DISEASE 04/24/16
--- OUTSIDE RECORDS SUMMARY | 2024-11-15 19:23 | XMS_ITS | Clinical Summary ---
Author Organization [facility] Address [address] [facility] [place] [address] Care Team Providers Care Closing Machine Operator Name Role Phone Justen Gale MD Primary Care Provider [phone] Source Comments [facility],non-[facility] Affiliates and Associated Physician Practices is amultiple site organization consisting of ambulatory clinics and hospital sitesin [place], [place], [place] and [place]. This disclosure is being madepursuant to the Care Everywhere program and may not contain all information available regarding this patient. Last updated 18.[facility] [employer] Allergies Active Allergy Reactions Criticality Noted Date [...] care, and heating? Somewhat hard 05/16/2023 [facility] [place] of Occupat ional Health - Occupational Stress [...] in a snf (including now)? No 05/16/2023 Comments No Sex and Gender Information Value Date Recorded Sex Assigned at Not on file Legal Sex Female 6:53 PM DIRECTOR PROFESSIONAL SERVICES Gender Identity Not on file Sexual [...] this topic Medical Devices Implanted Type Area Phlebotomist Associate Device Identifier Shelf Expiration Date Model / Serial / Lot Lead Nrstm 60cm Penta 3mm Pdl 16 Chnl Implanted:Qt y: 1 on 09/16/2021 by Maxi Gregg MD at [facility] Right: Spine Thoracic Advanced [employer] [id number] / / Description:CAMILO Slnt Dura Duraseal Pg Trilysine Amine 5 Implanted:Qt y: 1 on 09/16/2021 by Maxi Gregg MD at [facility] Right: Spine Thoracic Integra [employer] David [id number] / / Description:CAMILO Proclaim Plus 5 Implanted:Qt y: 1 on 02/16/2023 by Maxi Gregg MD at [facility] Left: Back Cardenas Spine [id number] 11/07/2024 3670 / [id number] / Explanted Type Area Phlebotomist Associate Device Identifier Shelf Expiration Date Model / Serial / Lot Gntr Nrstm [id number] Proclaim Elt Implanted:Qty: 1 on 09/16/2021 by Maxi Gregg MD at [facility] Explanted:Qty: 1 on 10/30/2021 by Maxi Gregg MD at [facility] Right: Spine Thoracic St Leoncio [...] COMPREHENSIVE METABOLIC PANEL (08/09/2024 1:40 PM CDT) [facility] Glucose 212(H) 70 - 99 mg/dL 08/09/2024 2:09 PM CDT [facility] Sodium 136 136 - 145 mmol/L 08/09/2024 2:09 PM CDT [facility] Potassium 3.9 3.5 - 5.1 mmol/L 08/09/2024 2:09 PM CDT [facility] Chloride 103 98 - 107 mmol/L 08/09/2024 2:09 PM CDT [facility] CO2 24 22 - 29 mmol/L 08/09/2024 2:09 PM CDT [facility] Calcium 9.4 8.4 - 10.4 mg/dL 08/09/2024 2:09 PM T [facility] Anion Gap 9 6 - 16 mmol/L 08/09/2024 2:09 PM CDT [facility] BUN 19 7 - 26 mg/dL 08/09/2024 2:09 PM T [facility] Creatinine 0.82 0.57 - 1.11 mg/dL 08/09/2024 2:09 PM [facility] Alkaline Phosphatase 68 40 - 150 U/L 08/09/2024 2:09 PM T [facility] ALT 22 6 - 57 U/L 08/09/2024 2:09 PM T [facility] AST 23 10 - 48 U/L 08/09/2024 2:09 PM [facility] Protein Total 8.0 6.4 - 8.3 gm/dL 08/09/2024 2:09 PM T [facility] Albumin 3.3(L) 3.4 - 5.0 gm/dL 08/09/2024 2:09 PM T [facility] Bilirubin Total 0.9 0.2 - 1.2 mg/dL 08/09/2024 2:09 PM [facility] eGFR by CKD-EPI 78(L) >=90 mL/min/1.7 3 m2 08/09/2024 2:09 PM [facility] Blood BLOOD SPECIMEN / Unknown Venipuncture / Unknown 08/09/2024 1:40 PM CDT 08/09/2024 1:43 PM T us Josué Bernla PA-C LAB - CHEMISTRY ORDERABLE S Final Result [facility] [address] [place] [address] * HEPATITIS C AB SCREEN RFLX NAAT QUANT (02/21/2023 6:30 PM CDT) Hepatitis C Antibody Non-react hugh Non-reac tive 02/21/2023 7:32 PM CDT [facility] Comment:Hepatitis C Antibody screen indicates [...] MD LAB - CHEMISTRY ORDERABLES nal Result [facility] [address] [place] [address], [facility] [phone] * (ABNORMAL) HEMOGLOBIN A1C (12/25/2022 3:56 AM CDT) Pathologist [facility] Hemoglobin A1c 8.6(H) <=5.6 % 12/25/2022 2:47 PM CDT [facility]ORY [facility] Estimated Average Glucose 200 mg/dL 12/25/2022 2:47 PM CDT [facility] Comment: HbA1c Interpretation: Normal : < 5.7% Pre-diabetes: 5.7-6.4% Diabetes: Equal to or greater than 6.5% Test results diagnostic of diabetes should be repeated for confirmation. Treatment target values recommended by ADA and other clinical organizations should be used to evaluate metabolic control in patients. Reference: [place] Diabetes Association, Standards of Care in Diabetes -2020 In patients 70 years and older consider HbA1c target range of 7.0-7.5% (Reference: Travis Stoery et al. JAMDA. 2012) The Sebia assay for the measurement of HbA1c is a National Glycohemoglobin Standardization Program (NGSP) certified method. Blood BLOOD SPECIMEN / Unknown Lab Venipuncture / Unknown 12/25/2022 3:56 AM CDT 12/25/2022 4:30 AM CDT Jerrod Rodriguez MD LAB - CHEMISTRY RUSS VIZCARRA Final Result [id number] [place] [address], [facility] [phone] from Last 3 Months or Most Recently [...] 3:37 AM 03/23/2023 7:14 PM Care Teams Closing Machine Operator Relationship Specialty Start Date End Date Justen Gale MD PCP - General 07/05/21
--- OUTSIDE RECORDS SUMMARY | 2024-11-15 19:23 | XMS_ITS | Encounter Summary ---
Author Organization [facility] Address [address] [place] [address] Phone Care Team Providers Care Tank Calibrator Name Role Phone Justen Gale MD Primary Care Provider [phone] David Roberts APRN, SUPERINTENDENT GREENS Unavailable Annel Rod MD Unavailable Reason for Visit * Reason Comments Medication Refill Encounter Details Date Type Department Care Team (Late st Contact Info) Description 02/07/2023 Refill [facility] #2 [place] [address] Catrina Quiñonez MD Medication Refill [...] Dept 01/17/23 Office Visit Catrina [facility]22 Office Visit Pili Elkins APRN, CNP [facility] [place] 07/05/22 Office Visit Pili [facility] APRN, [facility] [place] 05/02/22 Office Visit Justen Gale MD [facility] [place] 03/03/22 Office Visit Pili Elkins APRN, NETTA [facility] Showing recent visits within past 365 days and meeting all other requirements Future Appointments No visits were found meeting these conditions. Showing future appointments within next 90 days and meeting all other requirements documented in this encounter Plan of Treatment Upcoming Encounters Date Type Department Care Team (Late st Contact Info) Description 11/19/2024 2:00 PM CDT Office Visit [facility] - Endocrinology - [place] [address]2 [place] [address] Annel Rod MD #[address] [address] documented as of this encounter Visit Diagnoses Not on filedocumented in this encounter Additional Health Concerns Infection Onset Date Last Indicated Resolved Time COVID - 19 08/01/2024 08/01/2024 08/01/2024 3:20 PM CDT Assessment Noted Time PHQ-9 Depression Total Score: 8 01/18/20 2:24 PM CDT documented as of this encounter Care Teams Tank Calibrator Relationship Specialty Start Date End Date Justen Gale MD #[address] [address] PCP - General Family Medicine 10/17/17 David Roberts APRN, SUPERINTENDENT GREENS #2 [place] [address] Nurse Practitioner Advanced Practice Nurse 01/31/22 Annel Rod MD #[address] [address] Consulting Physician Endocrinology 07/01/22 documented as of this encounter
--- OUTSIDE RECORDS SUMMARY | 2024-11-15 19:23 | XMS_ITS ---
Author Organization [facility] Address [address] [facility] [place] [address] Care Team Providers Care Director Of Student Financial Services Name Role Phone Justen Gale MD Primary Care Provider [phone] Active Problems Problem Noted Date Diagnosed Date [...]
--- OUTSIDE RECORDS SUMMARY | 2024-11-15 19:23 | XMS_ITS | Clinical Summary ---
Author Organization [facility] Address [address] [place] [address] Phone Care Team Providers Care Inspector Scales Name Role Phone Justen Gale MD Primary Care Provider [phone] Allergies Active Allergy Reactions Criticality Noted Date [...] - 6.0 % 09/29/2017 10:28 AM CDT [employer] [facility] EST. AVG GLUCOSE, A1C 186 mg/dL 09/29/2017 10:28 AM CDT [facility] Blood Venipuncture / Unknown 09/28/2017 8:41 PM CDT 09/28/2017 8:46 PM CDT Narrative [facility] LABORATORY [facility] - 09/29/2017 10:28 AM CDT HGB A1C INTERPRETATION NORMAL: <5.7% PRE-DIABETES: 5.7 - 6.4% DIABETES: 6.5% OR GREATER us Francisco Castaneda MD CHEMISTRY ORDERABLES Final Resul t [facility]# [id number] 5 [facility] [place] [address] * (ABNORMAL) LIPID PANEL (09/28/2017 8:41 PM CDT) CHOLESTEROL 174 <200 mg/dL 09/30/2017 2:45 AM CDT [facility] TRIGLYCERIDE 109 <150 mg/dL 09/30/2017 2:45 AM CDT [facility] HDL 45 40 - 59 mg/dL 09/30/2017 2:45 AM CDT [facility] LDL CALCULATED 107(H) <100 mg/dL 09/30/2017 2:45 AM CDT [facility] NON-HDL CHOLESTEROL 129 <130 mg/dL 09/30/2017 2:45 AM CDT [facility] Blood Venipuncture / Unknown 09/28/2017 8:41 PM CDT 09/28/2017 8:46 PM CDT Narrative [facility] - 09/30/2017 2:45 AM CDT TOTAL CHOLESTEROL [...] CHEMISTRY ORDERABLES Final Resul t [facility] [id number] 5 [facility] [place] [id number] from Last 3 Months or Most Recently Relevant to Health Maintenance Insurance Advance Directives For more information, please contact: [phone] * Full Code (Latest Code Status on File) Date Activated Date Inactivated Comments 09/29/2017 7:45 AM 09/30/2017 9:14 PM * Full Code Date Activated Date Inactivated Comments 09/29/2017 1:25 AM 09/29/2017 7:45 AM Care Teams Inspector Scales Relationship Specialty Start Date End Date Justen Gale MD [address] [facility] [address] [place] [address] PCP - General Cardiovascular Disease 09/14/17
--- OUTSIDE RECORDS SUMMARY | 2024-11-15 19:24 | XMS_ITS | Encounter Summary ---
Author Organization [facility] Address [address] [place] [address] Phone Care Team Providers Care Head Chopper Name Role Phone Justen Gale MD Primary Care Provider David Roberts APRN, TOUCH UP CARVER Unavailable Annel Rod MD Unavailable Reason for Visit * Reason Onset Date Comments Advice Only 11/21/2023 Encounter Details Date Type Department Care Team (Late st Contact Info) Description 11/21/2023 Telephone [facility] [address] [place] [address] Justen Gale MD #[address] [address] Advice Only Social History Tobacco Use Types [...] 11/21/2023 3:17 PM CDT RFC: Alejandra from [facility] is calling to state that patient [...] - Endocrinology [facility] [address] [place] [address] Annel Rod MD #[address] [address] documented as of this encounter Visit Diagnoses Not on filedocumented in this encounter Additional Health Concerns Infection Onset Date Last Indicated Resolved Time COVID - 19 08/01/2024 08/01/2024 08/01/2024 3:20 PM CDT Assessment Noted Time PHQ-9 Depression Total Score: 8 01/18/20 23 2:24 PM CDT documented as of this encounter Care Teams Head Chopper Relationship Specialty Start Date End Date Justen Gale MD #[address] [address] PCP - General Family Medicine 10/17/17 David Roberts, FOOD TRAY ASSEMBLER, TOUCH UP CARVER [address] [place] [address] Nurse Practitioner Advanced Practice Nurse 01/31/22 Annel Rod MD #[address] [phone] Consulting Physician Endocrinology 07/01/22 documented as of this encounter
--- OUTSIDE RECORDS SUMMARY | 2024-11-15 19:24 | XMS_ITS | Clinical Summary ---
Author Organization [facility] Address [address] [place] [address] Phone Care Team Providers Care Electrical Accessories I Assembler Name Role Phone Justen Gale MD Primary Care Provider [phone] David Roberts APRN, COMMUNITY OUTREACH MANAGER Unavailable Annel Rod MD Unavailable Allergies Active [...] complication, without long-term current use of insulin ([facility]) Diagnosis: Diabetes Type 2 Blood testing frequency: 4 times a day 1 Each 11/22/19 18 Active Glucose Blood (ONE TOUCH ULTRA TEST) Strip Test four times daily. 400 Strip 3 02/11/20 20 Active Misc. Devices MiscIndication s:LUL (obstructive sleep apnea) Supply and instructions: 1 Each 09/10/19 21 Active OneTouch Delica Lancets 33G [facility] 1 Lancet by [...] Tablet by mouth. 12/28/19 24 Active Multiple Vitamins-[place] als (WOMENS MULTI PO) Take by mouth. [...] taking until cleared by PCP office or mechatronics technologist. Will need to taper off slowly. Indications: Polymyalgia Rheumatica 30 Tablet 10/01/19 25 2024 Discontinued(R eorder) predniSONE (DELTASONE) 10 MG TabletIndicati ons:Polymyalgi a Rheumatica Take 1 Tablet by mouth daily. Do not stop taking until cleared by PCP office or mechatronics technologist. Will need to taper off slowly. Indications: [...] Overview: Added automatically from request for surgery [id number] Lymphedema of left upper extremity 08/09/2016 Pulmonary embolism 08/09/2016 Overview (11/09/2017): Last Assessment & Plan: On Rivaroxaban Arthralgia of ankle 01/26/2015 Cellulitis of breast 11/11/2014 Encounters Date Type Department Care Team Description 11/14/2024 Telephone [facility] [address] [place] [phone] Justen Gale MD Follow-up 11/14/2024 Telephone [facility] [address] [place] [phone] Justen Gale MD 11/07/2024 Nurse Triage [address] [phone] Justen Gale MD Advice Only; Fatigue; Shortness of Breath 11/06/2024 MyChart RX Renewal [facility] [address] [place] [phone] Justen Gale MD Medication Renewal Declined 11/05/2024 [facility] [place] [phone] Jusetn Gale MD Medication Refill 10/28/2024 MyChart RX Renewal [facility] [address] [place] [phone] Justen Gale MD Medication Renewal Reviewed 10/17/2024 Refill [facility] #[address] [place] [phone] Annel Rod MD Medication Refill 10/08/2024 Nurse Triage [address] [phone] Justen Gale MD Abdominal Pain 09/30/2024 MyChart RX Renewal [facility] [address] [place] [phone] Dulce Wolff, OIL HEATERMAN, COMMUNITY OUTREACH MANAGER Medication Renewal Reviewed 09/29/2024 Nurse Triage [facility] Central Call [address] [phone] Justen Gale MD Urinary Tract Infection 09/23/2024 Nurse Triage [facility] Central Call [address] [phone] Justen Gale MD Breathing Problem; Pain 09/23/2024 [facility] [address] [place] [phone] Justen Gale MD Pain 09/11/2024 [facility] [address] [place] [phone] Justen Gale MD Follow-up 09/06/2024 1:15 PM CDT Office Visit [facility] [place] [address] Dulce Wolff, OIL HEATERMAN, COMMUNITY OUTREACH MANAGER Enlarged tonsils (Primary Dx); Polymyalgia rheumatica (HCC); Oral candidiasis; Edema, unspecified type Discharge Disposition: Discharged to home or Selfcare 09/06/2024 Travel 09/03/2024 Telephone [facility] [address] [place] [phone] Justen Gale MD Follow-up 09/02/2024 [facility] [address] [phone] Justen Gale MD Sore Throat 08/20/2024 1:15 PM CDT Office Visit [facility] [address] [place] [address] Justen Gale MD Acute maxillary sinusitis, recurrence not specified (Primary Dx) Discharge Disposition: Discharged to home or Selfcare 08/20/2024 Travel 08/19/2024 Telephone [facility] [address] [place] [address] Justen Gale MD Advice Only; Follow-up from Last 3 Months Immunizations Immunization Administration Dates Next Due Covid-19 Vaccine, Vector-nr, Rs-ad26, Pf, 0.5 Ml ([email or web address]) 06/29/2020 Influenza Vaccine greater than 3 yrs [...] drink = 0.6 oz pur e alcohol) [facility] Feastities Answer Date Recorded In the past 12 months has [facility] [employer], oil, or water [employer] threatened to shut off services in your home? Yes 08/06/2024 Social Connection and Isolation Panel Answer Date Recorded In a typical week, how many times do you talk on the phone with family, friends, or neighbors? More than three times a week 08/06/2024 How often do you get togethe r with friends or relatives? Patient declined 08/06/2024 How often do you attend [facility] or mosque services? More than 4 times [...] Total Score - Questions 1-9 0 07/23 [facility] - Occupational Stress Questionnaire Answer [...] any time in the past 12 m [facility], were you homeless or living in [...] Visit [facility] [place] [address] [place] [address] Annel Rod MD #[address] [phone] Health Maintenance Due Date Last Done Comments [...] - ABDOMEN/PELVIS 10/03/2024 1 2:00 AM CDT [id number] CONSULT 09/27/2024 12:00 AM CDT EXTERNAL ENT [...] URINE ORDERABLES Final Result Performing Organization Address City/[facility]/ZIP Co de Phone Number SCAN * THYROID STIMULATING HORMONE (TSH) (11/07/2024 12:00 AM CDT) 11/07/2024 us Provider Scan CHEMISTRY ORDERABLES Final Resul t SCAN * APTT (PTT) (11/07/2024 12:00 AM CDT) 11/07/2024 us Provider Scan HEMATOLOGY ORDERABLES Final Resu lt Performing Organization Address [facility] de Phone Number SCAN * PROTIME (PT) (PROTHROMBIN TIME) (11/07/2024 12:00 AM CDT) INR 2.0 SCAN 11/07/2024 us Provider Scan HEMATOLOGY ORDERABLES Final Resu lt Performing Organization Address [facility] de Phone Number SCAN * MAGNESIUM (MG) (11/07/2024 12:00 AM CDT) 11/07/2024 us Provider Scan CHEMISTRY ORDERABLES Final Resul t Performing Organization Address [facility] Phone Number SCAN * LACTIC ACID (LACTATE) (11/07/2024 12:00 AM CDT) 11/07/2024 us Provider Scan CHEMISTRY ORDERABLES Final Resul t Performing Organization Address [facility] de Phone Number SCAN * CMP (COMPREHENSIVE METABOLIC PANEL) (11/07/2024 12:00 AM CDT) 11/07/2024 us Provider Scan CHEMISTRY ORDERABLES Final Resul t Performing Organization Address [facility] de Phone Number SCAN * COMPLETE BLOOD COUNT (CBC) WITH DIFF (11/07/2024 12:00 AM CDT) 11/07/2024 us Provider Scan HEMATOLOGY ORDERABLES Final Resu lt Performing Organization Address [facility] de Phone Number SCAN * B-TYPE NATRIURETIC PEPTIDE (BNP) (11/07/2024 12:00 AM CDT) 11/07/2024 us Provider Scan CHEMISTRY ORDERABLES Final Resul t Performing Organization Address [facility] de Phone Number SCAN * INTERNAL MEDICINE CONSULT (10/17/2024 12:00 AM CDT) Only the most recent of2 resultswithin the time period is included. 10/17/2024 us Provider Scan GENERIC SCAN ORDERS CONSULT Deann l Result Performing Organization Address [facility] de Phone Number SCAN * CT - ABDOMEN/PELVIS (10/15/2024 12:00 AM CDT) Only the most recent of4 resultswithin the time period is included. 10/15/2024 us Provider Scan IMG CT ORDERABLES Final Result Performing Organization Address [facility] de Phone Number SCAN * SURGERY CONSULT (10/12/2024 12:00 AM CDT) 10/12/2024 us Provider Scan GENERIC SCAN ORDERS CONSULT Deann l Result Performing Organization Address [facility] de Phone Number SCAN * CT - SPINE (10/06/2024 12:00 AM CDT) 10/06/2024 us Provider Scan IMG CT ORDERABLES Final Result Performing Organization Address [facility] de Phone Number SCAN * EXTERNAL ENT REFERRAL (09/27/2024 12:00 AM CDT) 09/27/2024 July N Oehl OIL HEATERMAN, COMMUNITY OUTREACH MANAGER OUTPT REFERRALS EXT/INT F inal Result Performing Organization Address [facility] de Phone Number SCAN * XR - CHEST (09/27/2024 12:00 AM CDT) 09/27/2024 us Provider Scan IMG DIAGNOSTIC ORDERABLES Final Result Performing Organization Address [facility] de Phone Number SCAN * HGE-NHRT-KEADGE CONSULT (09/27/2024 12:00 AM CDT) 09/27/2024 us Provider Scan GENERIC SCAN ORDERS CONSULT Deann l Result Performing Organization Address [facility] de Phone Number SCAN * PAIN CONSULT (09/19/2024 12:00 AM CDT) 09/19/2024 Justen Gale MD GENERIC SCAN ORDERS CONSULT F inal Result Performing Organization Address [facility] de Phone Number SCAN * HEMOGLOBIN, A1C (10/02/2023 12:00 AM CDT) HGB-A1C 7.8 SCAN 10/02/2023 Provider Scan CHEMISTRY ORDERABLES Final Resul t Performing Organization Address [facility] de Phone Number SCAN * HM COLONOSCOPY (01/09/2020) Genaro Jensen DO PROCEDURE/MINOR SURGICAL ORDERA BLES Final Result * AMB REFERRAL TO PODIATRY (08/13/2019) Alvarez Mensah MD OUTPATIENT REFERRALS Final Res ult * POCT STOOL, OCCULT BLOOD, DIAGNOSTIC (09/07/2018 1:20 PM CDT) OCCULT BLOOD, STOOL Negative Negative, Other POC HEMOCULT CONTROL [employer] [place] 09/07/2018 1:20 PM CDT Pili Elkins APRN, NETTA POINT OF CARE TESTIN G (MANUAL) Final Result from Last 3 Months or Most Recently Relevant to Health Maintenance Insurance MEDICAID [place] MEDICARE C [facility] Care Teams Electrical Accessories I Assembler Relationship Specialty Start Date End Date Justen Gale MD #2 [facility] [address] [place] [address] PCP - General Family Medicine 10/17/17 David Roberts APRN, NETTA [address] [place] [address] Nurse Practitioner Advanced Practice Nurse 01/31/22 Annel Rod MD #2 [facility] [address] [place] [phone] Consulting Physician Endocrinology 07/01/22
[2024-11-15 19:30] LABS: Creatine Kinase 86 U/L (30-135); Magnesium 1.8 mg/dL (1.6-2.3)
[2024-11-15 20:34] LABS: Influenza A QL RT-PCR Negative (Negative); Influenza B QL RT-PCR Negative (Negative); RSV RNA, RT-PCR Negative (Negative); SARS-CoV-2 RNA PCR Negative (Negative)
[2024-11-15] MEDS: ACETAMINOPHEN 500 MG TABLET 1000 MG PO (20:34)
--- NOTE | 2024-11-15 20:40 | PC.NURSE ---
ambulated patient with portable pulse ox. O2 sat remained between 95-98% while walking. patient complained of mild weakness and shortness of breath. LIZA barba.
[2024-11-15 20:42] VITALS: BP 140/88; PULSE 93; RESP 20; O2SAT 98
[2024-11-15 20:44] VITALS: PULSE 93
[2024-11-15] MEDS: HYDROmorphone HCL INJ (*CRX) 2 MG/ML VIAL 1 MG IV PUSH (22:37)
[2024-11-15] MEDS: DOXYCYCLINE HYCLATE 50 MG CAPSULE PO (22:44)
[2024-11-16] VITALS (11 sets, daily range): BP systolic 118–156; BP diastolic 75–91; PULSE 66–96; RESP 16–18; TEMP 36.3–36.8; O2SAT 95–98; BMI 52.4
--- NOTE | 2024-11-16 | ECHO_ITS ---
Patient Info Name: Karly Marques Age: 69 years : 1955 Gender: Female Ht: 61 in Wt: 277 lbs BSA: 2.41 m2 HR: 86 bpm BP: 151 / 88 mmHg Technical Quality: Good Exam Date: 11/16/2024 11:57 AM Patient Status: I Admit Date: 11/16/2024 Exam Type: CA echo doppler color flow Complete two-dimensional, color flow and Doppler transthoracic echocardiogram is performed. Staff Referring Physician: Codie Walters Collection Supervisor: Smita Villanueva Attending Provider: Leigh Escamilla Summary 1. Complete two-dimensional, color flow and Doppler transthoracic echocardiogram is performed. 2. There is normal biventricular size and systolic function. 3. There is grade 2 diastolic dysfunction. 4. There is mild aortic stenosis. Left Ventricle The left ventricle is normal in size and systolic function. The left ventricular ejection fraction is visually estimated to be 55-60%. There is grade 2 diastolic dysfunction. Right Ventricle The right ventricle is normal in size and systolic function. Left Atria The left atrium is normal size. Right Atria The right atrium is normal size. Atrial Septum The atrial septum is intact by color Doppler. Aortic Valve The aortic valve is trileaflet and sclerotic. There is mild aortic stenosis. There is no aortic regurgitation. Pulmonic Valve Pulmonic valve is normal. There is no pulmonic valve regurgitation. Mitral Valve The mitral valve leaflets are sclerotic and there is annular calcification. There is no mitral stenosis. There is no mitral regurgitation. Tricuspid Valve The tricuspid valve is normal. There is trace tricuspid regurgitation. Pericardium/Pleural Pericardium is normal in appearance with no evidence for significant pericardial effusion. Inferior Vena Cava Normal inferior vena cava with >50% collapse upon inspiration consistent with normal right atrial pressure, 3 mmHg. Aorta The aortic root at the level of the sinus of Valsalva measures 2.9 cm in diameter. Left Ventricular Outflow Tract Name Value Normal LVOT 2D LVOT Diameter 2.0 cm LVOT Doppler LVOT Peak Velocity 228 cm/s LVOT Peak Gradient 17 mmHg LVOT Mean Gradient 11 mmHg LVOT VTI 48 cm LVOT VTI/AV VTI Ratio 0.6 LVOT Stroke Volume 144 ml LVOT CO 8.5 l/min LVOT CI 3.5 l/min/m2 Pulmonic Valve Name Value Normal RVOT Doppler RVOT Peak Velocity 105 cm/s RVOT Peak Gradient 4 mmHg PV Doppler PV Peak Velocity 149 cm/s PV Peak Gradient 9 mmHg Mitral Valve Name Value Normal MV Diastolic Function MV E Peak Velocity 120 cm/s MV A Peak Velocity 156 cm/s MV E/A 0.8 MV Decel Time (PW) 277 ms MV Annular TDI MV E/e' (Septal) 19.5 MV E/e' (Lateral) 14.9 MV E/e' (Average) 17.2 Tricuspid Valve Name Value Normal Estimated PAP/RSVP RA Pressure 3 mmHg <=5 Aortic Valve Name Value Normal AV Doppler AV Peak Velocity 390 cm/s AV Peak Gradient 48 mmHg AV Mean Gradient 22 mmHg AV VTI 74 cm AV Area (Cont Eq VTI) 2.0 cm2 >=3.0 AV Area (Cont Eq Singh) 1.8 cm2 AV DI (Singh) 0.58 AV Regurgitation 2D LVOT Area 3.0 cm2 Ventricles Name Value Normal LV Dimensions 2D/MM IVS Diastolic Thickness (2D) 1.2 cm 0.6-1.0 LVID Diastole (2D) 4.5 cm 3.8-5.2 LVIW Diastolic Thickness (2D) 1.1 cm 0.6-0.9 LVID Systole (2D) 3.0 cm 2.2-3.5 LVOT Diameter 2.0 cm LV Mass (2D Cubed) 198.72 g 67.00-162.00 LV Mass Index (2D Cubed) 82 g/m2 43-95 Relative Wall Thickness (2D) 0.50 <=0.42 LV Fractional Shortening/Ejection Fraction 2D/MM LV Fractional Shortening (2D) 35 % 27-45 LV EF (2D Teichholz) 64 % LV Diastolic Volume (4C MOD) 126 ml LV EF (4C MOD) 54 % LV Diastolic Volume (2C MOD) 100 ml LV EF (2C MOD) 62 % LV Diastolic Volume (BP MOD) 117 ml 46-106 LV Diastolic Volume Index (BP MOD) 49 ml/m2 29-61 LV Systolic Volume (BP MOD) 49 ml 14-42 LV Systolic Volume Index (BP MOD) 20 ml/m2 8-24 LV EF (BP MOD) 58 % 54-74 LV Diastolic Length (4C) 8.3 cm LV Systolic Length (4C) 6.5 cm LV Stroke Volume (4C MOD) 68 ml Atria Name Value Normal LA Dimensions LA Volume (4C A-L) 58 ml LA Volume (BP A-L) 70 ml RA Dimensions RA Systolic Major Readlyn Length (4C) 5.4 cm 2.2-2.8 RA Area (4C) 18.6 cm2 <=18.0 Report Signatures
--- NOTE | 2024-11-16 00:19 | PM.IMHP ---
H&P: HPI History of Present Illness Date/Time: 11/16/24 00:19 Chief Complaint: Weakness Narrative: 69-year-old female who lives at home with daughter presents to [facility] ER with complaints of shortness of breath, generalized swelling due to steroid use, palpitations, increase exhaustion. She has exhaustion on and off but it has been more for the past week. She was seen in [place] ER 1 week prior for similar symptoms but they have worsened. Her PCP has begun to decrease to steroid dosage. 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 Patient denies fever, cough, chest pain, nausea or vomiting, diarrhea, sick contacts, recent travel, denies urinary symptoms, denies bladder pain. Workup in the ER revealed WBC 13.1, hemoglobin 13.1, platelet 279, INR 2.1, potassium 4.1, BUN 17, serum creatinine 0.69, blood glucose 202, lactic acid 1.8, calcium 9.9, magnesium 1.8, troponin and creatinine kinase within normal limits, BNP 150, albumin 4.3. Urinalysis positive glucose, 2+ leukocyte esterase, 3-5 RBC, 21-50 WBC. Quad viral screen negative. Chest x-ray demonstrating opacities at the posterior medial right lower lung zone. Patient denies any episodes of vomiting/choking. The patient has very extensive allergy list. Patient does not know her allergic reaction to doxycycline. Was decided in the ER she with take doxycycline with some monitoring and then possibly go home. Patient reports she developed itching afterwards. No rash. Patient received Benadryl 25 mg IV x1. Otherwise no new complaints. Review of Systems Review of Systems: All systems reviewed & are unremarkable except as noted in HPI and below (Subjective/HPI) [facility] Past Medical History Medical History Gastroparesis Obstructive sleep apnea on CPAP Restless leg syndrome Pulmonary embolism positive for coagulation workup Deep venous thrombosis Type 2 diabetes mellitus Throat pain in adult Oral ulcer Chronic anticoagulation Overactive bladder Irritable bowel syndrome Congestive heart failure Chronic back pain Collagenous colitis Morbid obesity Breast cancer Depression Anxiety Peripheral neuropathy Kidney stone Multiple thyroid nodules Surgical History Surgical History History of umbilical hernia repair History of colonoscopy Status post insertion of spinal cord stimulator History of cystoscopy History of ureter stent History of cholecystectomy History of bilateral mastectomy History of esophagogastroduodenoscopy (EGD) History of right oophorectomy History of total right knee replacement History of cardiac catheterization Reportedly negative for coronary artery disease. Family History Family History Mother Diabetes mellitus Acute myocardial infarction Congestive heart failure Hypertension Cerebrovascular accident Coronary artery disease Father Prostate carcinoma Sibling Acute myocardial infarction Breast cancer Chronic obstructive pulmonary disease Social History Social History (Updated 11/15/24 @ 19:26 by Alicia Bullock MD) Social History: Surrogate medical decision maker: Jimmie Marques, spouse. (Previously listed though she reports being now) Code status: Full code. Smoking packs per day: 0 Smoking cigarettes per day: 0.0 Years smoked: 2 Smoking pack-years: 0.00 Smoking status: Never smoker Second hand tobacco smoke exposure: Yes Alcohol intake: never Substance use: never Substance use type: does not use Do You Feel Safe in your Home?: Yes Lack of Transportation: YES Lack of Food: Never True Current Housing: I Have Housing Concerned About Future Housing: No Difficulty Paying Gas/Electric Bills: No Difficulty Paying for Meds: No Currently Unemployed: No Education: Associate Degree Difficulty w/ Childcare or Family Care: No Living arrangements: with family Additional living arrangements comments: daughter Additional occupation/education comments: Disabled. Spiritual care concerns: No Meds Home Medications and Allergies Home Medications ?Medication ?Instructions ?Recorded ?Confirmed ?Type exemestane 25 mg tablet 25 mg PO HS 01/06/20 10/12/24 History insulin glargine 100 unit/mL (3 40 unit subcut QAM 01/06/20 10/12/24 History mL) subcutaneous pen (Lantus Solostar U-100 Insulin) ropinirole 5 mg tablet 5 mg PO HS 01/06/20 10/12/24 History insulin lispro 100 unit/mL 32 unit subcut TID 03/19/22 10/12/24 History subcutaneous pen (Humalog KwikPen (U-100) Insulin) albuterol sulfate 90 mcg/actuation 1 inh inhalation QID PRN shortness 09/19/22 10/12/24 Rx aerosol inhaler of breath or wheezing #6.7 grams oxybutynin chloride 15 mg 15 mg PO DAILY 11/06/22 10/12/24 History tablet,extended release 24 hr gabapentin 300 mg capsule 300 mg PO TID 06/25/23 10/12/24 History ondansetron 4 mg disintegrating 4 mg PO Q8H PRN nausea and 08/14/24 10/12/24 Rx tablet vomiting #10 tabs lidocaine 5 % topical ointment 1 applic topical TID PRN skin 10/06/24 10/12/24 Rx irritation #50 grams prednisone 10 mg tablet 10 mg PO DAILY 10/08/24 10/12/24 History rivaroxaban 20 mg tablet (Xarelto) 20 mg PO 0900 10/08/24 10/12/24 History linezolid 600 mg tablet 600 mg PO Q12H 5 days #10 tabs 10/11/24 10/12/24 Rx hydrocodone 10 mg-acetaminophen 1 tablet PO Q6H PRN pain (scale 10/18/24 10/12/24 Rx 325 mg tablet score 7-10) 5 days #10 tabs pantoprazole 40 mg tablet,delayed 40 mg PO BID 30 days #60 tabs 10/18/24 Rx release (Protonix) sucralfate 1 gram tablet 1 g PO ACHS 21 days #84 tabs 10/18/24 Rx doxycycline hyclate 100 mg capsule 100 mg PO DAILY 4 days #4 caps 11/15/24 Rx Allergies Allergy/AdvReac Type Severity Reaction Status Date / Time ceftriaxone Allergy Severe SOB Verified 11/15/24 15:20 cephalexin Allergy Severe Difficulty Verified 11/15/24 15:20 Breathing Cephalosporins Allergy Severe Difficulty Verified 11/15/24 15:20 Breathing lorazepam Allergy Severe Swelling Verified 11/15/24 15:20 trazodone Allergy Severe Swelling Verified 11/15/24 15:20 of Lip/Tongue/Throat metoclopramide Allergy Intermediate Other Verified 11/15/24 15:20 chlorhexidine Allergy Mild BLISTERING Verified 11/15/24 15:20 levofloxacin Allergy Mild Hives / Verified 11/15/24 15:20 Red Face ketorolac Allergy Itching Verified 11/15/24 15:20 latex Allergy Rash Verified 11/15/24 15:20 meropenem Allergy Rash Verified 11/15/24 15:20 nitrofurantoin Allergy Itching Verified 11/07/24 15:42 sulfamethoxazole (From Allergy Itching Verified 11/15/24 15:20 Sulfamethoxazole-Trimethoprim) trimethoprim (From Allergy Itching Verified 11/15/24 15:20 Sulfamethoxazole-Trimethoprim) clindamycin AdvReac Intermediate Nausea and Verified 11/15/24 15:20 Vomiting doxycycline AdvReac Mild Itching Verified 11/15/24 23:55 oxycodone AdvReac Mild Vomiting Verified 11/15/24 15:20 amlodipine AdvReac Swelling Verified 11/15/24 15:20 lisinopril AdvReac Swelling Verified 11/15/24 15:20 pregabalin AdvReac Swelling Verified 11/15/24 15:20 reslizumab AdvReac Unknown Verified 11/15/24 15:20 Vital Signs Vital Signs - 24 hr 11/15/24 15:35 11/15/24 17:19 11/15/24 18:47 Temperature 97.6 F 98.1 F Pulse Rate 105 H 94 92 Respiratory Rate 19 18 Blood Pressure 192/110 H 147/97 H 150/77 H Pulse Oximetry 98 97 100 Oxygen Delivery Room Air Room Air 11/15/24 20:42 11/15/24 20:44 11/16/24 00:09 Temperature Pulse Rate 93 93 93 Respiratory Rate 20 16 Blood Pressure 140/88 143/90 H Pulse Oximetry 98 97 Oxygen Delivery Exam Const: General: comfortable and no acute distress Other: A&O x3 HENMT: Mouth: Yes moist mucous membranes Eyes: Pupils: Equal, round and reactive pupils present Neck: Neck: supple Resp: Effort & Inspection: normal respiratory effort Auscultation: clear to auscultation bilaterally Cardio: Rate: regular rate Rhythm: regular rhythm GI: Inspection: non-distended GI Palp: Yes Soft to palpation Auscultation: normal bowel sounds : General: Yes bladder normal to palpation Skin: General skin exam: normal color and no rashes or lesions noted Neuro: Motor exam (neuro): 5/5 motor strength present throughout Extrem: General: no edema H&P: Results Labs Labs: Short CBC 11/15/24 Range/Units 17:22 WBC 13.1 H (4.5-10.0) K/mm3 Hgb 13.1 (12.0-15.0) g/dL Hct 41.7 (37.0-47.0) % Plt Count 279 (150-375) k/mm3 BMP 11/15/24 17:22 Sodium 137 Potassium 4.1 Chloride 102 Carbon Dioxide 25 BUN 17 Creatinine 0.69 L Glucose 202 H Calcium 9.9 Cardiac Enzymes 11/15/24 11/15/24 Range/Units 17:22 17:22 Total Creatine Kinase 86 (30-135) U/L Troponin I < 0.012 Cancelled (0.000-0.034) ng/mL Liver Function 11/15/24 Range/Units 17:22 Total Bilirubin 0.8 (0.2-1.3) mg/dL AST 30 (14-36) U/L ALT 32 (6-35) U/L Alkaline Phosphatase 77 (38-126) U/L Albumin 4.3 (3.5-5.1) g/dL Urine 11/15/24 Range/Units 17:36 Urine Color Yellow (Yellow) Urine Appearance Clear (Clear) Urine pH 7.0 (5.0-9.0) Ur Specific Henderson 1.021 (1.001-1.035) Urine Protein Trace (Negative) mg/dL Urine Glucose (UA) 1+ H (Negative) mg/dL Assessment and Plan Assessment and plan (1) Exhaustion: Code(s): R53.83 - Other fatigue Status: Acute (2) LUL on CPAP: Code(s): G47.33 - Obstructive sleep apnea (adult) (pediatric); Z99.89 - Dependence on other enabling machines and devices Status: Acute (3) Shortness of breath: Code(s): R06.02 - Shortness of breath Status: Acute Plan 69-year-old female who lives at home with daughter presents to [facility] ER with complaints of shortness of breath, generalized swelling due to steroid use, palpitations, increase exhaustion. She has exhaustion on and off but it has been more for the past week. She was seen in [place] ER 1 week prior for similar symptoms but they have worsened. Her PCP has begun to decrease to steroid dosage. 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 Patient denies fever, cough, chest pain, nausea or vomiting, diarrhea, sick contacts, recent travel, denies urinary symptoms, denies bladder pain. Workup in the ER revealed WBC 13.1, hemoglobin 13.1, platelet 279, INR 2.1, potassium 4.1, BUN 17, serum creatinine 0.69, blood glucose 202, lactic acid 1.8, calcium 9.9, magnesium 1.8, troponin and creatinine kinase within normal limits, BNP 150, albumin 4.3. Urinalysis positive glucose, 2+ leukocyte esterase, 3-5 RBC, 21-50 WBC. Quad viral screen negative. Chest x-ray demonstrating opacities at the posterior medial right lower lung zone. Patient denies any episodes of vomiting/choking. The patient has very extensive allergy list. Patient does not know her allergic reaction to doxycycline. Was decided in the ER she with take doxycycline with some monitoring and then possibly go home. Patient reports she developed itching afterwards. No rash. Patient received Benadryl 25 mg IV x1. Otherwise no new complaints. ----- Less likely the patient has pneumonia. Other than some opacities in the right basal lung field she has no symptomatology or other finding such as fever to indicate pneumonia. She has leukocytosis which is chronic and likely due to chronic prednisone use. Shortness of breath and exhaustion could be explained by her morbid obesity, prednisone use, LUL. She also takes chronic oxycodone for lower back pain. The patient did receive doxycycline x1 and with resultant itching and she then received Benadryl. Will admit to observation and monitor symptoms. Will also order PT/OT evaluations. Patient wishes to be full code. Saline lock IV. CPAP nightly. 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 PTOT eval is. Continuous pulse ox/telemetry for at least [address] [facility] Advance Care Plan I have confirmed that the patient's Advanced Care Plan is present, code status is documented, or surrogate decision maker is listed in patient medical record.: Yes Medication Reconciliation I have utilized all available resources to obtain, update and review the patients current medications (includes all prescriptions, OTC, herbals, cannabis, and nutritional supplements).: Yes
[2024-11-16] MEDS: HYDROcodone/acetaminophen (*CRX) 10-325 MG TABLET 1 TAB PO ×3 (03:40→21:28)
[2024-11-16] MEDS: GABAPENTIN 300 MG CAPSULE PO ×3 (03:41→18:56)
[2024-11-16 06:47] LABS: Hematocrit 39.4 % (37.0-47.0); Hemoglobin 12.3 g/dL (12.0-15.0); Immature Granulocyte Percent A 0.6 % (0-0.5); Lymphocytes Absolute Auto 2.84 K/mm3 (0.9-3.2); Mean Corpuscular HGB Conc 31.2 g/dl (32-36); Mean Corpuscular Hemoglobin 29.0 pg (26-34); Mean Corpuscular Volume 92.9 fl (80-100); Nucleated Red Blood Cells Absolute Auto 0.000 K/mm3 (0.0-0.012); Nucleated Red Blood Cells Perc 0.0 % (0.0-0.2); Platelet Count Result 231 k/mm3 (150-375); Red Blood Count 4.24 M/mm3 (4.2-5.4); White Blood Count 9.8 K/mm3 (4.5-10.0)
[2024-11-16 07:01] LABS: Anion Gap 7 mmol/L (4-12); Blood Urea Nitrogen 19 mg/dL (7-17); Calcium 9.2 mg/dL (8.4-10.2); Carbon Dioxide 26 mmol/L (22-30); Chloride 102 mmol/L (98-107); Estimated CRCL calculation 80 ml/min; Estimated Glomerular Filt Rate > 60; Glucose 264 mg/dL (65-110); Magnesium 1.7 mg/dL (1.6-2.3); Potassium 4.0 mmol/L (3.4-5.0); Sodium 135 mmol/L (137-145)
[2024-11-16 07:15] LABS: Procalcitonin 0.1 ng/mL
[2024-11-16] MEDS: INSULIN GLARGINE (*BKC) 100 UNITS/ML 50 UNITS SUB-Q (08:52)
[2024-11-16] MEDS: INSULIN ASPART (*BKC) 100 UNITS/ML 32 UNITS SUB-Q ×2 (08:52→17:28)
[2024-11-16] MEDS: INSULIN ASPART (*BKC) 100 UNITS/ML SUB-Q ×2 (08:52→17:28)
[2024-11-16] MEDS: PANTOPRAZOLE 40 MG TABLET PO ×2 (09:00→17:27)
[2024-11-16] MEDS: oxyBUTYnin CHLORIDE XL 5 MG TAB.ER.24 15 MG PO (11:19)
--- NOTE | 2024-11-16 14:06 | P.PNIM_ITS ---
Progress Note: A&P Assessment and Plan (1) Exhaustion: Code(s): R53.83 - Other fatigue Status: Acute Assessment and Plan: 11/16/24: * Etiology unknown. Possible explanations are Polymyositis or other Rheumatologi mario disease, Morbid obesity, LUL, or chronic use of prednisone * Monitor and trend labs and VS. * Pt has upcoming appointment with Rheumatology in December. Will encourage to keep that appointment. * Prednisone has been weaned to lower dose. (2) LUL on CPAP: Code(s): G47.33 - Obstructive sleep apnea (adult) (pediatric); Z99.89 - Dependence on other enabling machines and devices Status: Chronic Assessment and Plan: 11/16/24: * Continue CPAP with home settings. (3) Shortness of breath: Code(s): R06.02 - Shortness of breath Status: Acute Assessment and Plan: 11/16/24: * see #1. * Will add an ECHO as pt complains of having CLAY. She does not physically appear to be euvolemic as she does have some peripheral edema, but no pitting. * Not requiring any supplemental oxygen. * Consider Cardiology eval as needed based on findings of ECHO. * Pt dosed with Doxy based on findings of CXR, but no definite PNA present. No need to continue as pt is not showing any acute infection. Time Spent With Patient Time with patient: 25 - 35 minutes Subjective Date/time seen: 11/16/24 14:06 Interval history: This 69 year old female pt was examined at the bedside since being admitted to the hospital with fatigue, SOB and weakness. She is awaiting a Rheumatology appointment at [facility] in early December. Her workup has been mostly unremarkable with suggestions of her fatigue and weakness being caused by her chronic prednisone that she takes for a presumed dx of Polymyositis, not yet confirmed by muscle bx, her LUL, and her Obesity. She also complains of having increased edema and CLAY. 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 She was given a dose of Doxycycline in the ER for abnormal CXR, but it was thought that her Leukocytosis that she has is actually due to the use of her Prednisone and not an actual infection. Pt has not had a recent ECHO, and her symptoms may also be explained by CHF, so ECHO is ordered at this time and will consider cardiology referral/diuresis as needed as she still complains of CLAY and Swelling of extremities. CXR did not appreciate an effusion. Review of Systems Review of Systems: All systems reviewed & are unremarkable except as noted in HPI and below Exam Const: General: comfortable and no acute distress Other: Morbidly obese female pt sitting on the side of the bed at this time in no acute distress. Pt does however appear very tired and weak. HENMT: Face/Nose/Sinus: Normal nares present Mouth: Yes moist mucous membranes Eyes: General: appearance normal, both eyes and all related structures Sclera: sclerae normal Pupils: Equal, round and reactive pupils present EOM: EOMs intact bilaterally Neck: Neck: supple and no JVD Lymphatic: lymphadenopathy not noted Resp: Effort & Inspection: normal respiratory effort Auscultation: clear to auscultation bilaterally Cardio: Rate: regular rate Rhythm: regular rhythm Heart sounds: no gallops, no murmurs and no rubs GI: GI Palp: Yes Soft to palpation and No Tenderness to palpation present (GI) Auscultation: normal bowel sounds Skin: General skin exam: normal color and no rashes or lesions noted Rashes: no rashes noted Wounds: no wounds Neuro: Speech: normal speech Motor exam (neuro): Abnormal motor strength present (Generalized weakness) Sensory Exam: normal sensation Extrem: General: edema (Mild BLE edema present.) Psych: Mental Status: mental status grossly normal Affect: normal affect Objective Data Vital Signs Vital Signs: Vital Signs - 24 hr 11/15/24 15:35 11/15/24 17:19 11/15/24 18:47 Temperature 97.6 F 98.1 F Pulse Rate 105 H 94 92 Respiratory Rate 19 18 Blood Pressure 192/110 H 147/97 H 150/77 H Pulse Oximetry 98 97 100 Oxygen Delivery Room Air Room Air 11/15/24 20:42 11/15/24 20:44 11/16/24 00:00 Temperature 98.2 F Pulse Rate 93 93 84 Respiratory Rate 20 16 Blood Pressure 140/88 156/91 H Pulse Oximetry 98 96 Oxygen Delivery 11/16/24 00:09 11/16/24 00:37 11/16/24 00:45 Temperature Pulse Rate 93 93 Respiratory Rate 16 16 Blood Pressure 143/90 H 143/90 H Pulse Oximetry 97 97 Oxygen Delivery Autopap 11/16/24 02:37 11/16/24 04:00 11/16/24 06:00 Temperature 98 F Pulse Rate 87 81 Respiratory Rate 16 Blood Pressure 151/88 H Pulse Oximetry 98 Oxygen Delivery CPAP Intake/Output Intake/Output: Intake & Output 11/13/24 11/14/24 11/15/24 11/16/24 23:59 23:59 23:59 23:59 Intake Total 940 Balance 940 Meds/Results Medications: Active Medications Generic Name Dose Route Start Last Admin Trade Name Freq PRN Reason Stop Dose Admin Acetaminophen 650 mg 11/15/24 23:50 Acetaminophen 325 Mg Tablet PO Q4H PRN Mild Pain (1-3) or Fever Hydrocodone Bitart/Acetaminophen 1 tab 11/16/24 03:25 11/16/24 11:20 Hydrocodone/Acetaminophen (*Crx) 10-325 Mg Tablet PO 1 tab Q6H PRN Administration pain (scale score 7-10) Albuterol 2 puff 11/16/24 03:25 Albuterol Sulfate (*Sp) Aerosol 1 Puff INHALATION QID PRN shortness of breath or wheezing Dextrose 12.5 gm 11/15/24 23:50 Dextrose 50% 25 Gm/50 Ml Syringe IV PUSH PRN PRN Hypoglycemia Protocol Diphenhydramine HCl 25 mg 11/16/24 03:25 11/16/24 03:46 Diphenhydramine Hcl Inj 50 Mg/Ml Vial IV PUSH 25 mg Q4H PRN Administration Itching Gabapentin 300 mg 11/16/24 03:30 11/16/24 03:41 Gabapentin 300 Mg Capsule PO 300 mg TID [facility] Administration Glucose 15 gm 11/15/24 23:50 Glucose Oral Gel 15 Gm Of Glucse In 37.5 Gm Tube PO PRN PRN Hypoglycemia Protocol Dextrose 1,000 mls @ 100 mls/hr 11/15/24 23:50 Dextrose 5% 1,000 Ml IVPB PRN PRN Hypoglycemia Protocol Insulin Aspart 3 - 6 units 11/16/24 08:00 11/16/24 11:10 Insulin Aspart (*Bkc) 100 Units/Ml SUB-Q Not Given TIDWM [facility] Protocol Insulin Aspart 1 - 3 units 11/16/24 21:00 Insulin Aspart (*Bkc) 100 Units/Ml SUB-Q HS [facility] Protocol Insulin Aspart 32 units 11/16/24 08:00 11/16/24 11:12 Insulin Aspart (*Bkc) 100 Units/Ml SUB-Q Not Given TIDWM [facility] Insulin Glargine 50 units 11/16/24 09:00 11/16/24 08:52 Insulin Glargine (*Bkc) 100 Units/Ml SUB-Q 50 units QAM [facility] Administration Miscellaneous Information 0 each 11/16/24 03:40 11/16/24 04:33 Exemestane 25 Mg Tablet- Nonformulary. Please Obtain A Home Supply If Possible. XX 12/16/24 03:39 Not Given [facility] Miscellaneous Information 1 each 11/17/24 00:01 Order Clarification -Lidocaine 5 % Ointment XX 12/17/24 00:00 [facility] Non-Formulary Medication 25 mg 11/16/24 21:00 Exemestane PO 12/16/24 20:59 HS [facility] Nonformulary Drug ( 1 applic 11/16/24 09:40 Nonformulary Drug ( TOPICAL Lidocaine 5 % Oi) TID PRN skin irritation Ondansetron HCl 4 mg 11/16/24 09:40 Ondansetron Hcl Odt 4 Mg Tablet PO Q8H PRN nausea and vomiting Oxybutynin Chloride 15 mg 11/16/24 10:00 11/16/24 11:19 Oxybutynin Chloride Xl 5 Mg Tab.Er.24 PO 15 mg DAILY [facility] Administration Pantoprazole Sodium 40 mg 11/16/24 09:00 11/16/24 09:00 Pantoprazole 40 Mg Tablet PO 40 mg BID [facility] Administration Perflutren Lipid Microsphere 0 ml 11/16/24 11:04 Perflutren Lipid Microspheres 1.5 Ml Vial Diluted To 10 Ml Total Volume IV PUSH 11/19/24 11:05 ONCE PRN adequate visualization Protocol Prednisone 10 mg 11/16/24 08:00 11/16/24 09:00 Prednisone 10 Mg Tablet PO 10 mg DAILY@0800 [facility] Administration Rivaroxaban 20 mg 11/16/24 17:00 Rivaroxaban 20 Mg Tablet PO DAILY@1700 [facility] Ropinirole HCl 5 mg 11/16/24 03:30 11/16/24 03:42 Ropinirole Hcl 1 Mg Tablet PO 5 mg HS [facility] Administration Radiology Results: ITS Impressions Chest X-Ray 11/15/24 18:07 IMPRESSION: 1. Opacities at the posterior medial right lower lung zone which could represent atelectasis or pneumonia. Labs Labs: Laboratory Results - last 24 hr 11/15/24 11/15/24 11/15/24 17:22 17:22 17:36 WBC 13.1 H RBC 4.56 Hgb 13.1 Hct 41.7 MCV 91.4 MCH 28.7 MCHC 31.4 L RDW 13.7 Plt Count 279 MPV 9.7 Immature Gran % (Auto) 0.5 Neut % (Auto) 77.7 H Lymph % (Auto) 15.5 L [place] % (Auto) 5.6 Eos % (Auto) 0.4 Baso % (Auto) 0.3 Lymph # (Auto) 2.04 [place] # (Auto) 0.7 H Eos # (Auto) 0.1 Baso # (Auto) 0.0 Abs Immat Gran (auto) 0.07 H Absolute Neuts (auto) 10.2 H Absolute Nucleated RBC 0.000 Nucleated RBC % 0.0 PT 23.0 H INR 2.1 APTT 34.3 D-Dimer 0.30 Sodium 137 Potassium 4.1 Chloride 102 Carbon Dioxide 25 Anion Gap 10 BUN 17 Creatinine 0.69 L Estim Creat Clear Calc 84 Estimated GFR > 60 Glucose 202 H POC Capillary Glucose Lactic Acid 1.8 Calcium 9.9 Phosphorus Magnesium 1.8 Total Bilirubin 0.8 AST 30 ALT 32 Alkaline Phosphatase 77 Total Creatine Kinase 86 Troponin I < 0.012 Cancelled NT-Pro-B Natriuret Pep 150 H Total Protein 8.8 H Albumin 4.3 Procalcitonin Urine Color Yellow Urine Appearance Clear Urine pH 7.0 Ur Specific [place] 1.021 Urine Protein Trace Urine Glucose (UA) 1+ H Urine Ketones Negative Ur Blood (Man) 1+ H Urine Nitrate Negative Urine Bilirubin Negative Urine Urobilinogen 1.0 Leukocyte Esterase Rfl 2+ H Urine RBC 3-5 H Urine WBC 21-50 H Ur Squamous Epith Cells None seen Urine Bacteria Rare Urine Casts 0-2 Influenza A (RT-PCR) Influenza B (RT-PCR) RSV (RT-PCR) SARS-CoV-2 RNA (RT-PCR) 11/15/24 11/16/24 11/16/24 19:50 05:52 08:03 WBC 9.8 RBC 4.24 Hgb 12.3 Hct 39.4 MCV 92.9 MCH 29.0 MCHC 31.2 L RDW 13.8 Plt Count 231 MPV 10.0 Immature Gran % (Auto) 0.6 H Neut % (Auto) 59.7 Lymph % (Auto) 29.0 [place] % (Auto) 8.4 Eos % (Auto) 2.0 Baso % (Auto) 0.3 Lymph # (Auto) 2.84 [place] # (Auto) 0.8 H Eos # (Auto) 0.2 Baso # (Auto) 0.0 Abs Immat Gran (auto) 0.06 H Absolute Neuts (auto) 5.9 Absolute Nucleated RBC 0.000 Nucleated RBC % 0.0 PT INR APTT D-Dimer Sodium 135 L Potassium 4.0 Chloride 102 Carbon Dioxide 26 Anion Gap 7 BUN 19 H Creatinine 0.73 Estim Creat Clear Calc 80 Estimated GFR > 60 Glucose 264 H POC Capillary Glucose 222 H Lactic Acid Calcium 9.2 Phosphorus 3.2 Magnesium 1.7 Total Bilirubin AST ALT Alkaline Phosphatase Total Creatine Kinase Troponin I NT-Pro-B Natriuret Pep Total Protein Albumin Procalcitonin 0.1 Urine Color Urine Appearance Urine pH Ur Specific [place] Urine Protein Urine Glucose (UA) Urine Ketones Ur Blood (Man) Urine Nitrate Urine Bilirubin Urine Urobilinogen Leukocyte Esterase Rfl Urine RBC Urine WBC Ur Squamous Epith Cells Urine Bacteria Urine Casts Influenza A (RT-PCR) Negative Influenza B (RT-PCR) Negative RSV (RT-PCR) Negative SARS-CoV-2 RNA (RT-PCR) Negative 11/16/24 11/16/24 11/16/24 11:03 11:15 11:38 WBC RBC Hgb Hct MCV MCH MCHC RDW Plt Count MPV Immature Gran % (Auto) Neut % (Auto) Lymph % (Auto) [place] % (Auto) Eos % (Auto) Baso % (Auto) Lymph # (Auto) [place] # (Auto) Eos # (Auto) Baso # (Auto) Abs Immat Gran (auto) Absolute Neuts (auto) Absolute Nucleated RBC Nucleated RBC % PT INR APTT D-Dimer Sodium Potassium Chloride Carbon Dioxide Anion Gap BUN Creatinine Estim Creat Clear Calc Estimated GFR Glucose POC Capillary Glucose 88 87 115 H Lactic Acid Calcium Phosphorus Magnesium Total Bilirubin AST ALT Alkaline Phosphatase Total Creatine Kinase Troponin I NT-Pro-B Natriuret Pep Total Protein Albumin Procalcitonin Urine Color Urine Appearance Urine pH Ur Specific [place] Urine Protein Urine Glucose (UA) Urine Ketones Ur Blood (Man) Urine Nitrate Urine Bilirubin Urine Urobilinogen Leukocyte Esterase Rfl Urine RBC Urine WBC Ur Squamous Epith Cells Urine Bacteria Urine Casts Influenza A (RT-PCR) Influenza B (RT-PCR) RSV (RT-PCR) SARS-CoV-2 RNA (RT-PCR) Quality VTE Prophylaxis VTE prophylaxis: pharmacologic ordered
[2024-11-16] MEDS: MORPHINE SULFATE (*CRX) 4 MG/ML INJ IV PUSH (15:36)
[2024-11-16] MEDS: ONDANSETRON HCL ODT 4 MG TABLET PO (15:36)
[2024-11-16] MEDS: RIVAROXABAN 20 MG TABLET PO (17:27)
[2024-11-16] MEDS: MELATONIN 5 MG TABLET PO (23:09)
[2024-11-17] VITALS (11 sets, daily range): BP systolic 113–129; BP diastolic 62–65; PULSE 59–94; RESP 14–18; TEMP 36.2–36.7; O2SAT 97–100
[2024-11-17] MEDS: HYDROcodone/acetaminophen (*CRX) 10-325 MG TABLET 1 TAB PO ×3 (06:48→21:13)
[2024-11-17] MEDS: PANTOPRAZOLE 40 MG TABLET PO ×2 (08:35→17:50)
[2024-11-17] MEDS: oxyBUTYnin CHLORIDE XL 5 MG TAB.ER.24 15 MG PO (08:35)
[2024-11-17] MEDS: INSULIN GLARGINE (*BKC) 100 UNITS/ML 50 UNITS SUB-Q (08:35)
[2024-11-17] MEDS: GABAPENTIN 300 MG CAPSULE PO ×3 (08:35→17:50)
[2024-11-17] MEDS: INSULIN ASPART (*BKC) 100 UNITS/ML 32 UNITS SUB-Q ×3 (08:37→17:55)
--- NOTE | 2024-11-17 09:02 | PM.IMPN ---
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 Complete two-dimensional, color flow and Doppler transthoracic echocardiogram is performed. 2. There is normal biventricular size and systolic function. 3. There is grade 2 diastolic dysfunction. 4. There is mild aortic stenosis. 11/17 EKG Twave abnormality now present PLAN --Cardiology referral for discharge --Has multiple significant allergies to medications --Continue to monitor on tele, having some PVC's. Repeat EKG in AM --Check mag, phos, repeat BMP, troponin. --CT chest in AM, without contrast unless d-dimer elevated --If increased shortness of breath or new oxygen requirement can take Vanc or Zyvox. If needing additional antibiotics would likely require transfer for antibiotic desensitization --If pneumonia on CT, start Zyvox BID x5 days Mutiple antibiotic allergies Cephalosporins (difficulty breathing), levaquin (hives), meropenem (rash), pipercillin (rash), bactrim/sulfa (anaphylaxis), doxycycline (itching). (azithromycin) itching --Previously tolerated Vancomycin and linezolid Fatigue polymyositis flare Joint swelling Pending muscle biopsy and follow up with rheumatology at [place] Taking prednisone 10mg daily, recently reduced by PCP with increased swelling to joint to right hand. Also having pain and swelling to upper arms above the elbow, Left > right --Suspect autoimmune flare/polymyositis. Having significant TTP to upper extremities --Inflammatory markers: CRP, ESR, Uric acid level, though gout flare is less likely --Solumedrol 125mg x1, then Prednisone 60mg, taper by 10mg every 5 days. If not resolving, sometimes requires very high dose steroids, but would need rheumatology consult --Ideally would give bactrim for antibiotic prophylaxis but is allergic to bactrim. Start PPI --Could consider starting methotrexate outpatient, per PCP, to reduce need for steroids --Pt has upcoming appointment with Rheumatology in December. Will encourage to keep that appointment. Left arm and leg edema Has been sleeping on her right side so doesn't seem to be dependent edema. Suspect polymyositis flare --Has been on xarelto --Venous doppler left arm, left leg --Check CK, Aldolase, d-dimer Uncontrolled diabetes Home meds: Lantus 50 units daily, Lispro 32 units TID with meals Blood sugars controlled with current meds on 10mg steroids, but will need a higher dose Add 20units NPH in AM with steroid taper. Suspect she will need additional insulin. Consider discharge with 25 for 5 days (with 60mg) 20 units for 5 days (with 50mg), 15 for 5 days (with 40mg) 10 units for 5 days (with 30mg), 5 units for 5 days with 20mg or adjust as needed. 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 No acute distress Eyes - PERRLA, EOM intact ENT - No thrush, No erythema Neck - No noticeable or palpable swelling Lymph Nodes - No lymphadenopathy Cardiovascular - RRR no m/r/g, no JVD Lungs: Rare crackles right mid lung. No wheezing, use of accessory muscles, no crackles Skin - Skin warm and dry, no wounds or rashes Abdomen - Normal bowel sounds, abdomen soft and nontender Extremities - Mild edema left arm, left leg, cyanosis or clubbing Musculoskeletal - 5/5 strength, normal range of motion, Swollen 1st & 2nd MCP right hand, TTP muscles to upper torso Neurological ? Alert and oriented x 3, CN 2-12 grossly intact. Psych: Normal mood and affect Const: General: comfortable and no acute distress Objective Data Vital Signs Vital Signs: Vital Signs - 24 hr 11/16/24 12:01 11/16/24 14:00 11/16/24 16:03 Temperature 97.3 F L Pulse Rate 92 96 82 Respiratory Rate 18 Blood Pressure 126/77 Pulse Oximetry 98 Oxygen Delivery 11/16/24 20:00 11/16/24 20:00 11/16/24 20:58 Temperature 98.3 F Pulse Rate 86 87 86 Respiratory Rate 16 16 Blood Pressure 118/75 Pulse Oximetry 95 95 Oxygen Delivery Room Air 11/17/24 00:00 11/17/24 03:15 11/17/24 04:00 Temperature Pulse Rate 78 80 Respiratory Rate 14 Blood Pressure Pulse Oximetry Oxygen Delivery Autopap 11/17/24 06:00 Temperature 98.0 F Pulse Rate 59 L Respiratory Rate 14 Blood Pressure 129/65 Pulse Oximetry 100 Oxygen Delivery Intake/Output Intake/Output: Intake & Output 11/14/24 11/15/24 11/16/24 11/17/24 23:59 23:59 23:59 23:59 Intake Total 1300 400 Balance 1300 400 Meds/Results Medications: Active Medications Generic Name Dose Route Start Last Admin Trade Name Freq PRN Reason Stop Dose Admin Acetaminophen 650 mg 11/15/24 23:50 Acetaminophen 325 Mg Tablet PO Q4H PRN Mild Pain (1-3) or Fever Hydrocodone Bitart/Acetaminophen 1 tab 11/16/24 03:25 11/17/24 06:48 Hydrocodone/Acetaminophen (*Crx) 10-325 Mg Tablet PO 1 tab Q6H PRN Administration pain (scale score 7-10) Albuterol 2 puff 11/16/24 03:25 Albuterol Sulfate (*Sp) Aerosol 1 Puff INHALATION QID PRN shortness of breath or wheezing Dextrose 12.5 gm 11/15/24 23:50 Dextrose 50% 25 Gm/50 Ml Syringe IV PUSH PRN PRN Hypoglycemia Protocol Diphenhydramine HCl 25 mg 11/16/24 03:25 11/16/24 23:09 Diphenhydramine Hcl Inj 50 Mg/Ml Vial IV PUSH 25 mg Q4H PRN Administration Itching Gabapentin 300 mg 11/16/24 03:30 11/17/24 08:35 Gabapentin 300 Mg Capsule PO 300 mg TID [facility] Administration Glucose 15 gm 11/15/24 23:50 Glucose Oral Gel 15 Gm Of Glucse In 37.5 Gm Tube PO PRN PRN Hypoglycemia Protocol Dextrose 1,000 mls @ 100 mls/hr 11/15/24 23:50 Dextrose 5% 1,000 Ml IVPB PRN PRN Hypoglycemia Protocol Insulin Aspart 3 - 6 units 11/16/24 08:00 11/17/24 08:36 Insulin Aspart (*Bkc) 100 Units/Ml SUB-Q Not Given TIDWM [facility] Protocol Insulin Aspart 1 - 3 units 11/16/24 21:00 11/16/24 21:28 Insulin Aspart (*Bkc) 100 Units/Ml SUB-Q Not Given HS [facility] Protocol Insulin Aspart 32 units 11/16/24 08:00 11/17/24 08:37 Insulin Aspart (*Bkc) 100 Units/Ml SUB-Q 32 units TIDWM [facility] Administration Insulin Glargine 50 units 11/16/24 09:00 11/17/24 08:35 Insulin Glargine (*Bkc) 100 Units/Ml SUB-Q 50 units QAM [facility] Administration Melatonin 5 mg 11/16/24 21:50 11/16/24 23:09 Melatonin 5 Mg Tablet PO 5 mg HS [facility] Administration Miscellaneous Information 0 each 11/16/24 03:40 11/16/24 04:33 Exemestane 25 Mg Tablet- Nonformulary. Please Obtain A Home Supply If Possible. XX 12/16/24 03:39 Not Given [facility] Miscellaneous Information 1 each 11/17/24 00:01 Order Clarification -Lidocaine 5 % Ointment XX 12/17/24 00:00 [facility] Non-Formulary Medication 25 mg 11/16/24 21:00 Exemestane PO 12/16/24 20:59 HS [facility] Nonformulary Drug ( 1 applic 11/16/24 09:40 Nonformulary Drug ( TOPICAL Lidocaine 5 % Oi) TID PRN skin irritation Ondansetron HCl 4 mg 11/16/24 09:40 11/16/24 15:36 Ondansetron Hcl Odt 4 Mg Tablet PO 4 mg Q8H PRN Administration nausea and vomiting Oxybutynin Chloride 15 mg 11/16/24 10:00 11/17/24 08:35 Oxybutynin Chloride Xl 5 Mg Tab.Er.24 PO 15 mg DAILY [facility] Administration Pantoprazole Sodium 40 mg 11/16/24 09:00 11/17/24 08:35 Pantoprazole 40 Mg Tablet PO 40 mg BID [facility] Administration Perflutren Lipid Microsphere 0 ml 11/16/24 11:04 Perflutren Lipid Microspheres 1.5 Ml Vial Diluted To 10 Ml Total Volume IV PUSH 11/19/24 11:05 ONCE PRN adequate visualization Protocol Prednisone 10 mg 11/16/24 08:00 11/17/24 08:35 Prednisone 10 Mg Tablet PO 10 mg DAILY@0800 [facility] Administration Rivaroxaban 20 mg 11/16/24 17:00 11/16/24 17:27 Rivaroxaban 20 Mg Tablet PO 20 mg DAILY@1700 [facility] Administration Ropinirole HCl 5 mg 11/16/24 03:30 11/16/24 21:28 Ropinirole Hcl 1 Mg Tablet PO 5 mg HS [facility] Administration Radiology Results: ITS Impressions Chest X-Ray 11/15/24 18:07 IMPRESSION: 1. Opacities at the posterior medial right lower lung zone which could represent atelectasis or pneumonia. Labs Labs: Laboratory Results - last 24 hr 11/16/24 11/16/24 11/16/24 11:03 11:15 11:38 POC Capillary Glucose 88 87 115 H 11/16/24 11/16/24 11/16/24 16:31 20:10 20:31 POC Capillary Glucose 235 H 142 H 146 H 11/17/24 08:10 POC Capillary Glucose 169 H Quality VTE Prophylaxis VTE prophylaxis: pharmacologic ordered Hospitalist MIPS Advance Care Plan I have confirmed that the patient's Advanced Care Plan is present, code status is documented, or surrogate decision maker is listed in patient medical record.: Yes Medication Reconciliation I have utilized all available resources to obtain, update and review the patients current medications (includes all prescriptions, OTC, herbals, cannabis, and nutritional supplements).: Yes
[2024-11-17] MEDS: INSULIN ASPART (*BKC) 100 UNITS/ML SUB-Q (12:08)
[2024-11-17] MEDS: RIVAROXABAN 20 MG TABLET PO (17:50)
--- NOTE | 2024-11-17 19:44 | PC.NURSE ---
On 11/17/24, the INTERNAL AUDIT MANAGER, Christin Young, provided care and completed [employer] documentation on this patient. I have reviewed the INTERNAL AUDIT MANAGER's documentation and agree with the findings.
[2024-11-17] MEDS: MELATONIN 5 MG TABLET PO (21:14)
[2024-11-17 21:16] LABS: Hematocrit 43.7 % (37.0-47.0); Hemoglobin 13.6 g/dL (12.0-15.0); Immature Granulocyte Percent A 0.6 % (0-0.5); Lymphocytes Absolute Auto 2.71 K/mm3 (0.9-3.2); Mean Corpuscular HGB Conc 31.1 g/dl (32-36); Mean Corpuscular Hemoglobin 29.0 pg (26-34); Mean Corpuscular Volume 93.2 fl (80-100); Nucleated Red Blood Cells Absolute Auto 0.000 K/mm3 (0.0-0.012); Nucleated Red Blood Cells Perc 0.0 % (0.0-0.2); Platelet Count Result 296 k/mm3 (150-375); Red Blood Count 4.69 M/mm3 (4.2-5.4); White Blood Count 12.7 K/mm3 (4.5-10.0)
[2024-11-17 21:31] LABS: Alanine Aminotransferase 28 U/L (6-35); Albumin Level 3.9 g/dL (3.5-5.1); Alkaline Phosphatase 66 U/L (38-126); Anion Gap 8 mmol/L (4-12); Aspartate Amino Transferase 27 U/L (14-36); Bilirubin,Total 0.5 mg/dL (0.2-1.3); Blood Urea Nitrogen 20 mg/dL (7-17); CRP 1.5 mg/dL (<1.0); Calcium 9.4 mg/dL (8.4-10.2); Carbon Dioxide 29 mmol/L (22-30); Chloride 101 mmol/L (98-107); Estimated CRCL calculation 64 ml/min; Estimated Glomerular Filt Rate 60; Glucose 116 mg/dL (65-110); Magnesium 1.8 mg/dL (1.6-2.3); Potassium 4.0 mmol/L (3.4-5.0); Sodium 138 mmol/L (137-145); Total Protein 8.1 g/dL (6.3-8.2); Uric Acid 5.2 mg/dL (2.5-7.5)
[2024-11-17 21:39] LABS: Troponin I < 0.012 ng/mL (0.000-0.034)
[2024-11-17] MEDS: ACETAMINOPHEN 325 MG TABLET 650 MG PO (23:27)
[2024-11-18] VITALS (9 sets, daily range): BP systolic 105–148; BP diastolic 61–85; PULSE 70–95; RESP 16–18; TEMP 36.1–37; O2SAT 96–98
[2024-11-18] MEDS: HYDROcodone/acetaminophen (*CRX) 10-325 MG TABLET 1 TAB PO ×3 (05:30→20:34)
--- NOTE | 2024-11-18 07:59 | P.PNIM_ITS ---
Progress Note: A&P Assessment and Plan (1) Shortness of breath: Code(s): R06.02 - Shortness of breath Status: Acute Assessment and Plan: Suspect CHF vs less likely pneumonia vs autoimmune hx heart failure, obesity, LUL Not taking diuretics 11/16 TTE 1. Complete two-dimensional, color flow and Doppler transthoracic echocardiogram is performed. 2. There is normal biventricular size and systolic function. 3. There is grade 2 diastolic dysfunction. 4. There is mild aortic stenosis. 11/17 EKG Twave abnormality now present - CT Chest with Dense calcifications within the mitral valve. Trace calcifications within the aortic valve. No focal infiltrate or effusion. Trace bibasilar atelectasis with trace pleural thickening in the left lung base and along the left lateral chest wall. - very low suspicion for pneumonia given afebrile, no cough. No indication for abx at this time. - Continue to monitor on tele, having some PVC's. - EKG with no acute ST changes, frequent PVCs - troponin negative x2 - given dyspnea on exertion and peripheral edema, will trial IV lasix. Consult cardiology given no recent ischemic eval, appreciate recs. L (2) Joint swelling: Code(s): M25.40 - Effusion, unspecified joint Status: Acute Assessment and Plan: -PCP with concern for polymyositis due symptoms and elevated inflammatory markers. Pending muscle biopsy and follow up with rheumatology at [place] in December -Taking prednisone 10mg daily, recently reduced by PCP with increased swelling to joint to right hand. Also having pain and swelling to upper arms above the elbow, Left > right - could have polymyositis flare, but CK is normal making this unlikely. She may have some other autoimmune process as her symptoms have improved with steroids. -Solumedrol 125mg x1, then Prednisone 60mg, taper by 10mg every 5 days. If not resolving, sometimes requires very high dose steroids, but would need rheumatology consult -Ideally would give bactrim for antibiotic prophylaxis but is allergic to bactrim. Start PPI -Could consider starting methotrexate outpatient, per PCP, to reduce need for steroids -Pt has upcoming appointment with Rheumatology in December. Will encourage to keep that appointment. (3) LUL on CPAP: Code(s): G47.33 - Obstructive sleep apnea (adult) (pediatric); Z99.89 - Dependence on other enabling machines and devices Status: Chronic Assessment and Plan: -continue CPAP (4) Leg edema: Code(s): R60.0 - Localized edema Status: Acute Assessment and Plan: Left arm and leg edema -Has been sleeping on her right side so doesn't seem to be dependent edema. Suspect polymyositis flare -Has been on xarelto -Venous doppler left arm, left leg negative - still with left shoulder pain, check XR L shoulder (5) DM type 2 (diabetes mellitus, type 2): Qualifiers: Diabetes mellitus blocker heated metal forms insulin use: with retirement use Diabetes mellitus complication status: with hyperglycemia Qualified Code(s): E11.65 - Type 2 diabetes mellitus with hyperglycemia; Z79.4 - surgical assist (current) use of insulin Code(s): E11.9 - Type 2 diabetes mellitus without complications Status: Acute Assessment and Plan: -Home meds: Lantus 50 units daily, Lispro 32 units TID with meals -Blood sugars controlled with current meds on 10mg steroids, but likely will need higher dose. Adjusted Lantus and Lispro - continue SSI and hypoglycemia protocol Subjective Date/time seen: 11/18/24 07:59 Interval history: Patient is a 69 yo female with history of DVT on Xarelto, CHF, peripheral neuropathy who presents with fatigue, CLAY on exertion, left shoulder pain. Review of Systems Review of Systems: All systems reviewed & are unremarkable except as noted in HPI and below Exam Narrative: General: NAD, obese Eyes: EOMI ENT: neck supple Cardiovascular: Regular rate and rhythm Respiratory: Clear to auscultation, respirations even and unlabored on RA Gastrointestinal: Soft, non tender Genitourinary: no suprapubic tenderness Musculoskeletal: mild swelling of the first R interphalangeal joint, mild TTP of the left shoulder. Moderate BLE edema. Skin: warm, dry Neuro: Alert. Strength 5/5 in RUE, 4+/5 in LUE Psych: Mood appropriate Objective Data Vital Signs Vital Signs: Vital Signs - 24 hr 11/17/24 08:00 11/17/24 08:00 11/17/24 12:00 Temperature Pulse Rate 73 87 Respiratory Rate Blood Pressure Pulse Oximetry Oxygen Delivery Room Air 11/17/24 14:00 11/17/24 14:15 11/17/24 16:00 Temperature 97.1 F L Pulse Rate 94 93 Respiratory Rate 16 Blood Pressure 113/62 Pulse Oximetry 97 Oxygen Delivery Room Air 11/17/24 20:00 11/17/24 20:00 11/17/24 22:00 Temperature 97.2 F L Pulse Rate 78 79 78 Respiratory Rate 18 18 Blood Pressure 124/62 Pulse Oximetry 98 98 Oxygen Delivery Room Air 11/17/24 23:30 11/18/24 00:00 11/18/24 04:00 Temperature Pulse Rate 71 70 Respiratory Rate 16 Blood Pressure Pulse Oximetry Oxygen Delivery Autopap 11/18/24 06:00 Temperature 98.0 F Pulse Rate 80 Respiratory Rate 18 Blood Pressure 105/61 Pulse Oximetry 96 Oxygen Delivery Intake/Output Intake/Output: Intake & Output 11/15/24 11/16/24 11/17/24 11/18/24 23:59 23:59 23:59 23:59 Intake Total 1300 880 Balance 1300 880 Meds/Results Medications: Active Medications Generic Name Dose Route Start Last Admin Trade Name Freq PRN Reason Stop Dose Admin Acetaminophen 650 mg 11/15/24 23:50 11/17/24 23:27 Acetaminophen 325 Mg Tablet PO 650 mg Q4H PRN Administration Mild Pain (1-3) or Fever Hydrocodone Bitart/Acetaminophen 1 tab 11/16/24 03:25 11/18/24 05:30 Hydrocodone/Acetaminophen (*Crx) 10-325 Mg Tablet PO 1 tab Q6H PRN Administration pain (scale score 7-10) Albuterol 2 puff 11/16/24 03:25 Albuterol Sulfate (*Sp) Aerosol 1 Puff INHALATION QID PRN shortness of breath or wheezing Dextrose 12.5 gm 11/15/24 23:50 Dextrose 50% 25 Gm/50 Ml Syringe IV PUSH PRN PRN Hypoglycemia Protocol Diphenhydramine HCl 25 mg 11/16/24 03:25 11/17/24 23:27 Diphenhydramine Hcl Inj 50 Mg/Ml Vial IV PUSH 25 mg Q4H PRN Administration Itching Gabapentin 300 mg 11/16/24 03:30 11/17/24 17:50 Gabapentin 300 Mg Capsule PO 300 mg TID RODERICK Administration Glucose 15 gm 11/15/24 23:50 Glucose Oral Gel 15 Gm Of Glucse In 37.5 Gm Tube PO PRN PRN Hypoglycemia Protocol Hydroxyzine HCl 25 mg 11/17/24 12:30 11/18/24 05:30 Hydroxyzine Hcl 25 Mg Tablet PO 25 mg Q6H PRN Administration Itching, anxiety Dextrose 1,000 mls @ 100 mls/hr 11/15/24 23:50 Dextrose 5% 1,000 Ml IVPB PRN PRN Hypoglycemia Protocol Insulin Aspart 3 - 6 units 11/16/24 08:00 11/17/24 17:48 Insulin Aspart (*Bkc) 100 Units/Ml SUB-Q Not Given TIDWM [facility] Protocol Insulin Aspart 1 - 3 units 11/16/24 21:00 11/17/24 21:13 Insulin Aspart (*Bkc) 100 Units/Ml SUB-Q Not Given HS [facility] Protocol Insulin Aspart 32 units 11/16/24 08:00 11/17/24 17:55 Insulin Aspart (*Bkc) 100 Units/Ml SUB-Q 32 units TIDWM [facility] Administration Insulin Glargine 50 units 11/16/24 09:00 11/17/24 08:35 Insulin Glargine (*Bkc) 100 Units/Ml SUB-Q 50 units QAM RODERICK Administration Insulin Human NPH 20 units 11/18/24 09:00 Insulin Human Nph (*Bkc) 100 Units/Ml SUB-Q DAILY RODERICK Melatonin 5 mg 11/16/24 21:50 11/17/24 21:14 Melatonin 5 Mg Tablet PO 5 mg HS RODERICK Administration Miscellaneous Information 0 each 11/16/24 03:40 11/16/24 04:33 Exemestane 25 Mg Tablet- Nonformulary. Please Obtain A Home Supply If Possible. XX 12/16/24 03:39 Not Given [facility] Miscellaneous Information 1 each 11/17/24 00:01 Order Clarification -Lidocaine 5 % Ointment XX 12/17/24 00:00 [facility] Non-Formulary Medication 25 mg 11/16/24 21:00 Exemestane PO 12/16/24 20:59 HS [facility] Nonformulary Drug ( 1 applic 11/16/24 09:40 Nonformulary Drug ( TOPICAL Lidocaine 5 % Oi) TID PRN skin irritation Ondansetron HCl 4 mg 11/16/24 09:40 11/16/24 15:36 Ondansetron Hcl Odt 4 Mg Tablet PO 4 mg Q8H PRN Administration nausea and vomiting Oxybutynin Chloride 15 mg 11/16/24 10:00 11/17/24 08:35 Oxybutynin Chloride Xl 5 Mg Tab.Er.24 PO 15 mg DAILY RODERICK Administration Pantoprazole Sodium 40 mg 11/16/24 09:00 11/17/24 17:50 Pantoprazole 40 Mg Tablet PO 40 mg BID RODERICK Administration Perflutren Lipid Microsphere 0 ml 11/16/24 11:04 Perflutren Lipid Microspheres 1.5 Ml Vial Diluted To 10 Ml Total Volume IV PUSH 11/19/24 11:05 ONCE PRN adequate visualization Protocol Prednisone 60 mg 11/18/24 08:00 Prednisone 20 Mg Tablet PO DAILY@0800 RODERICK Rivaroxaban 20 mg 11/16/24 17:00 11/17/24 17:50 Rivaroxaban 20 Mg Tablet PO 20 mg DAILY@1700 RODERICK Administration Ropinirole HCl 5 mg 11/16/24 03:30 11/17/24 21:13 Ropinirole Hcl 1 Mg Tablet PO 5 mg HS RODERICK Administration Radiology Results: ITS Impressions Chest X-Ray 11/15/24 18:07 IMPRESSION: 1. Opacities at the posterior medial right lower lung zone which could represent atelectasis or pneumonia. Hand X-Ray 11/17/24 23:11 IMPRESSION: No acute osseous finding in the right hand. Labs Labs: Laboratory Results - last 24 hr 11/17/24 11/17/24 11/17/24 08:10 11:34 16:31 WBC RBC Hgb Hct MCV MCH MCHC RDW Plt Count MPV Immature Gran % (Auto) Neut % (Auto) Lymph % (Auto) [place] % (Auto) Eos % (Auto) Baso % (Auto) Lymph # (Auto) [place] # (Auto) Eos # (Auto) Baso # (Auto) Abs Immat Gran (auto) Absolute Neuts (auto) Absolute Nucleated RBC Nucleated RBC % ESR D-Dimer Sodium Potassium Chloride Carbon Dioxide Anion Gap BUN Creatinine Estim Creat Clear Calc Estimated GFR Glucose POC Capillary Glucose 169 H 305 H 130 H Uric Acid Calcium Phosphorus Magnesium Total Bilirubin AST ALT Alkaline Phosphatase Troponin I C-Reactive Protein Total Protein Albumin 11/17/24 11/17/24 11/17/24 20:03 21:00 22:19 WBC 12.7 H RBC 4.69 Hgb 13.6 Hct 43.7 MCV 93.2 MCH 29.0 MCHC 31.1 L RDW 13.8 Plt Count 296 MPV 9.4 Immature Gran % (Auto) 0.6 H Neut % (Auto) 70.8 Lymph % (Auto) 21.3 [place] % (Auto) 5.7 Eos % (Auto) 1.3 Baso % (Auto) 0.3 Lymph # (Auto) 2.71 [place] # (Auto) 0.7 H Eos # (Auto) 0.2 Baso # (Auto) 0.0 Abs Immat Gran (auto) 0.08 H Absolute Neuts (auto) 9.0 H Absolute Nucleated RBC 0.000 Nucleated RBC % 0.0 ESR 23 H D-Dimer 0.34 Sodium 138 Potassium 4.0 Chloride 101 Carbon Dioxide 29 Anion Gap 8 BUN 20 H Creatinine 0.93 Estim Creat Clear Calc 64 Estimated GFR 60 Glucose 116 H POC Capillary Glucose 185 H 94 Uric Acid 5.2 Calcium 9.4 Phosphorus 3.9 Magnesium 1.8 Total Bilirubin 0.5 AST 27 ALT 28 Alkaline Phosphatase 66 Troponin I < 0.012 C-Reactive Protein 1.5 H Total Protein 8.1 Albumin 3.9 Quality VTE Prophylaxis VTE prophylaxis: pharmacologic ordered
[2024-11-18 08:11] LABS: Hematocrit 41.0 % (37.0-47.0); Hemoglobin 12.8 g/dL (12.0-15.0); Immature Granulocyte Percent A 0.5 % (0-0.5); Lymphocytes Absolute Auto 1.15 K/mm3 (0.9-3.2); Mean Corpuscular HGB Conc 31.2 g/dl (32-36); Mean Corpuscular Hemoglobin 29.1 pg (26-34); Mean Corpuscular Volume 93.2 fl (80-100); Nucleated Red Blood Cells Absolute Auto 0.000 K/mm3 (0.0-0.012); Nucleated Red Blood Cells Perc 0.0 % (0.0-0.2); Platelet Count Result 271 k/mm3 (150-375); Red Blood Count 4.40 M/mm3 (4.2-5.4); White Blood Count 12.2 K/mm3 (4.5-10.0)
[2024-11-18 08:45] LABS: Alanine Aminotransferase 30 U/L (6-35); Albumin Level 3.8 g/dL (3.5-5.1); Alkaline Phosphatase 67 U/L (38-126); Anion Gap 9 mmol/L (4-12); Aspartate Amino Transferase 28 U/L (14-36); Bilirubin,Total 0.6 mg/dL (0.2-1.3); Blood Urea Nitrogen 23 mg/dL (7-17); Calcium 9.3 mg/dL (8.4-10.2); Carbon Dioxide 23 mmol/L (22-30); Chloride 102 mmol/L (98-107); Estimated CRCL calculation 81 ml/min; Estimated Glomerular Filt Rate > 60; Glucose 318 mg/dL (65-110); Potassium 4.9 mmol/L (3.4-5.0); Sodium 134 mmol/L (137-145); Total Protein 7.7 g/dL (6.3-8.2)
[2024-11-18 09:05] LABS: Procalcitonin 0.0 ng/mL
[2024-11-18] MEDS: PANTOPRAZOLE 40 MG TABLET PO ×2 (09:18→17:56)
[2024-11-18] MEDS: oxyBUTYnin CHLORIDE XL 5 MG TAB.ER.24 15 MG PO (09:18)
[2024-11-18] MEDS: GABAPENTIN 300 MG CAPSULE PO ×3 (09:19→17:56)
[2024-11-18] MEDS: INSULIN GLARGINE (*BKC) 100 UNITS/ML 50 UNITS SUB-Q (09:19)
[2024-11-18] MEDS: INSULIN ASPART (*BKC) 100 UNITS/ML SUB-Q ×3 (09:21→20:34)
[2024-11-18] MEDS: INSULIN ASPART (*BKC) 100 UNITS/ML 32 UNITS SUB-Q ×2 (09:21→11:59)
--- NOTE | 2024-11-18 13:03 | P.CONCA_ITS ---
Assessment and Plan Assessment and plan (1) (HFpEF) heart failure with preserved ejection fraction: Code(s): I50.30 - Unspecified diastolic (congestive) heart failure Status: Acute Assessment and Plan: Her echocardiogram during this admission shows grade 2 diastolic dysfunction. Perhaps an element of CHF, however her CXR does not show pulmonary edema or effusions and her BNP is only very mildly elevated at 150. She is not requiring oxygen. * Start lasix 40mg IV b.i.d. * Daily BMP while diuresing * Strict I&O * Daily weights * CHF counseling * Compliance with CPAP * BP control * Will also consider adding Entresto, spironolactone, jardiance prior to discharge if BP and renal function are stable. (2) Shortness of breath: Code(s): R06.02 - Shortness of breath Status: Acute Assessment and Plan: Secondary to mild CHF, ? pneumonia. Not requiring oxygen. Will see if she has improvement in dyspnea and orthopnea with some diuresis. (3) Morbid obesity with BMI of 50.0-59.9, adult: Code(s): E66.01 - Morbid (severe) obesity due to excess calories; Z68.43 - Body mass index [BMI] 50.0-59.9, adult Status: Acute Assessment and Plan: Weight loss recommended. History of Present Illness History of Present Illness Consult date/time: 11/18/24 13:03 Requesting physician: Della Duran PA Consult reason: Other (CLAY) Reason For Visit: poss PNA; generalized weakness; SOB Narrative: Karly Marques is a 69 year old female with history of PE/DVTs on Xarelto, LUL, T2DM, history of bilateral mastectomy for breast cancer, hypothyroidism, and diastolic heart failure. She presents to the hospital with complaints of shortness of breath, fatigue, and generalized weakness. She has been noticing progressive shortness of breath over the past week as well as orthopnea, conversational dyspnea, swelling, and abdominal fullness. She also endorses a 15 lb weight gain in 2 months. Denies chest pain, palpitations, syncope. Reports absolute compliance with CPAP. Review of Systems 2 Review of Systems: All systems reviewed & are unremarkable except as noted in HPI and below PMFSH Past Medical History Medical History Polymyositis with myopathy Gastroparesis Obstructive sleep apnea on CPAP Restless leg syndrome Pulmonary embolism positive for coagulation workup Deep venous thrombosis Type 2 diabetes mellitus Throat pain in adult Oral ulcer Chronic anticoagulation Overactive bladder Irritable bowel syndrome Congestive heart failure Chronic back pain Collagenous colitis Morbid obesity Breast cancer Depression Anxiety Peripheral neuropathy Kidney stone Multiple thyroid nodules Surgical History Surgical History History of umbilical hernia repair History of colonoscopy Status post insertion of spinal cord stimulator History of cystoscopy History of ureter stent History of cholecystectomy History of bilateral mastectomy History of esophagogastroduodenoscopy (EGD) History of right oophorectomy History of total right knee replacement History of cardiac catheterization Reportedly negative for coronary artery disease. Family History Family History Mother Diabetes mellitus Acute myocardial infarction Congestive heart failure Hypertension Cerebrovascular accident Coronary artery disease Father Prostate carcinoma Sibling Acute myocardial infarction Breast cancer Chronic obstructive pulmonary disease Social History Social History Social History: Surrogate medical decision maker: Jimmie Marques, spouse. (Previously listed though she reports being now) Code status: Full code. Smoking packs per day: 0 Smoking cigarettes per day: 0.0 Years smoked: 2 Smoking pack-years: 0.00 Smoking status: Never smoker Second hand tobacco smoke exposure: Yes Alcohol intake: never Substance use: never Substance use type: does not use Do You Feel Safe in your Home?: Yes Lack of Transportation: YES Lack of Food: Never True Current Housing: I Have Housing Concerned About Future Housing: No Difficulty Paying Gas/Electric Bills: No Difficulty Paying for Meds: No Currently Unemployed: No Education: Associate Degree Difficulty w/ Childcare or Family Care: No Living arrangements: with family Additional living arrangements comments: daughter Additional occupation/education comments: Disabled. Spiritual care concerns: No Meds Home Medications and Allergies Home Medications ?Medication ?Instructions ?Recorded ?Confirmed ?Type exemestane 25 mg tablet 25 mg PO HS 01/06/20 11/16/24 History insulin glargine 100 unit/mL (3 50 unit subcut QAM 01/06/20 11/16/24 History mL) subcutaneous pen (Lantus Solostar U-100 Insulin) ropinirole 5 mg tablet 5 mg PO HS 01/06/20 11/16/24 History insulin lispro 100 unit/mL 32 unit subcut TID 03/19/22 11/16/24 History subcutaneous pen (Humalog KwikPen (U-100) Insulin) albuterol sulfate 90 mcg/actuation 1 inh inhalation QID PRN shortness 09/19/22 11/16/24 Rx aerosol inhaler of breath or wheezing #6.7 grams oxybutynin chloride 15 mg 15 mg PO DAILY 11/06/22 11/16/24 History tablet,extended release 24 hr gabapentin 300 mg capsule 300 mg PO TID 06/25/23 11/16/24 History ondansetron 4 mg disintegrating 4 mg PO Q8H PRN nausea and 08/14/24 11/16/24 Rx tablet vomiting #10 tabs lidocaine 5 % topical ointment 1 applic topical TID PRN skin 10/06/24 11/16/24 Rx irritation #50 grams prednisone 10 mg tablet 10 mg PO DAILY 10/08/24 11/16/24 History rivaroxaban 20 mg tablet (Xarelto) 20 mg PO 0900 10/08/24 11/16/24 History hydrocodone 10 mg-acetaminophen 1 tablet PO Q6H PRN pain (scale 10/18/24 11/16/24 Rx 325 mg tablet score 7-10) 5 days #10 tabs pantoprazole 40 mg tablet,delayed 40 mg PO BID 30 days #60 tabs 10/18/24 11/16/24 Rx release (Protonix) doxycycline hyclate 100 mg capsule 100 mg PO DAILY 4 days #4 caps 11/15/24 Rx Allergies Allergy/AdvReac Type Severity Reaction Status Date / Time ceftriaxone Allergy Severe SOB Verified 11/16/24 02:24 cephalexin Allergy Severe Difficulty Verified 11/16/24 02:24 Breathing Cephalosporins Allergy Severe Difficulty Verified 11/16/24 02:24 Breathing lorazepam Allergy Severe Swelling Verified 11/16/24 02:24 trazodone Allergy Severe Swelling Verified 11/16/24 02:24 of Lip/Tongue/Throat metoclopramide Allergy Intermediate Other Verified 11/16/24 02:24 azithromycin Allergy Mild Itching Verified 11/17/24 19:55 chlorhexidine Allergy Mild BLISTERING Verified 11/16/24 02:24 levofloxacin Allergy Mild Hives / Verified 11/16/24 02:24 Red Face ketorolac Allergy Itching Verified 11/16/24 02:24 latex Allergy Rash Verified 11/16/24 02:24 meropenem Allergy Rash Verified 11/16/24 02:24 nitrofurantoin Allergy Itching Verified 11/16/24 02:24 piperacillin Allergy Rash Verified 11/16/24 02:24 reslizumab Allergy Hives Verified 11/16/24 02:24 trimethoprim (From Allergy Itching Verified 11/16/24 02:24 Sulfamethoxazole-Trimethoprim) sulfamethoxazole (From AdvReac Severe Anaphylaxis Verified 11/16/24 02:24 Sulfamethoxazole-Trimethoprim) clindamycin AdvReac Intermediate Nausea and Verified 11/16/24 02:24 Vomiting doxycycline AdvReac Mild Itching Verified 11/16/24 02:24 oxycodone AdvReac Mild Vomiting Verified 11/16/24 02:24 amlodipine AdvReac Swelling Verified 11/16/24 02:24 lisinopril AdvReac Swelling Verified 11/16/24 02:24 pregabalin AdvReac Swelling Verified 11/16/24 02:24 Vital Signs Vital Signs - 24 hr 11/17/24 14:00 11/17/24 14:15 11/17/24 16:00 Temperature 36.2 C L Pulse Rate 94 93 Respiratory Rate 16 Blood Pressure 113/62 Pulse Oximetry 97 Oxygen Delivery Room Air 11/17/24 20:00 11/17/24 20:00 11/17/24 22:00 Temperature 36.2 C L Pulse Rate 78 79 78 Respiratory Rate 18 18 Blood Pressure 124/62 Pulse Oximetry 98 98 Oxygen Delivery Room Air 11/17/24 23:30 11/18/24 00:00 11/18/24 04:00 Temperature Pulse Rate 71 70 Respiratory Rate 16 Blood Pressure Pulse Oximetry Oxygen Delivery Autopap 11/18/24 06:00 11/18/24 08:00 11/18/24 09:20 Temperature 36.7 C Pulse Rate 80 75 Respiratory Rate 18 Blood Pressure 105/61 Pulse Oximetry 96 Oxygen Delivery Room Air Exam 2 Const: General: comfortable, no acute distress, alert and awake O rientation/consciousness: patient oriented x3 Other: morbidly obese HENMT: Head: normal to inspection Eyes: General: appearance normal, both eyes and all related structures P upils: Equal, round and reactive pupils present Neck: Neck: normal visual inspection and supple Carotids: normal carotid upstroke Resp: Effort & Inspection: normal respiratory effort Auscultation: rales bilateral at the base Cardio: Rate: regular rate Rhythm: regular rhythm Heart sounds: S1 normal heart sound present, S2 normal heart sound present and Murmur heart sound present systolic GI: Inspection: distended Auscultation: normal bowel sounds Skin: General skin exam: normal color Neuro: General: patient oriented x3 Cranial nerves: Yes Equal, round and reactive pupils present Extrem: General: pedal edema Psych: Appearance: grossly normal Mental Status: mental status grossly normal Results Labs and Meds 11/18/24 08:05 11/18/24 08:05 Lab results: Cardiac Enzymes 11/17/24 11/18/24 Range/Units 21:00 08:05 AST 27 28 (14-36) U/L Troponin I < 0.012 (0.000-0.034) ng/mL CBC 11/17/24 11/18/24 Range/Units 21:00 08:05 WBC 12.7 H 12.2 H (4.5-10.0) K/mm3 RBC 4.69 4.40 (4.2-5.4) M/mm3 Hgb 13.6 12.8 (12.0-15.0) g/dL Hct 43.7 41.0 (37.0-47.0) % Plt Count 296 271 (150-375) k/mm3 Lymph # (Auto) 2.71 1.15 (0.9-3.2) K/mm3 [place] # (Auto) 0.7 H 0.1 (0.1-0.6) K/mm3 Eos # (Auto) 0.2 0.0 (0-0.3) K/mm3 Baso # (Auto) 0.0 0.0 (0.0-0.1) K/mm3 Comprehensive Metabolic Panel 11/17/24 11/18/24 Range/Units 21:00 08:05 Sodium 138 134 L (137-145) mmol/L Potassium 4.0 4.9 (3.4-5.0) mmol/L Chloride 101 102 (98-107) mmol/L Carbon Dioxide 29 23 (22-30) mmol/L BUN 20 H 23 H (7-17) mg/dL Creatinine 0.93 0.72 (0.7-1.0) mg/dL Glucose 116 H 318 H (65-110) mg/dL Calcium 9.4 9.3 (8.4-10.2) mg/dL AST 27 28 (14-36) U/L ALT 28 30 (6-35) U/L Alkaline Phosphatase 66 67 (38-126) U/L Total Protein 8.1 7.7 (6.3-8.2) g/dL Albumin 3.9 3.8 (3.5-5.1) g/dL Intake and Output 11/17/24 11/18/24 11/18/24 23:59 07:59 15:59 Intake Total 120 Balance 120 Intake: Oral 120 Other: # Unmeasured Voids 2
[2024-11-18 14:43] LABS: Creatine Kinase 37 U/L (30-135)
[2024-11-18] MEDS: MORPHINE SULFATE (*CRX) 2 MG/ML INJ IV PUSH (15:23)
[2024-11-18] MEDS: FUROSEMIDE INJ 40 MG/4 ML VIAL IV PUSH (17:56)
[2024-11-18] MEDS: RIVAROXABAN 20 MG TABLET PO (17:56)
[2024-11-18] MEDS: INSULIN ASPART (*BKC) 100 UNITS/ML 35 UNITS SUB-Q (17:58)
[2024-11-18] MEDS: MELATONIN 5 MG TABLET PO (20:34)
[2024-11-18] MEDS: ACETAMINOPHEN 325 MG TABLET 650 MG PO (22:55)
[2024-11-19] VITALS: PULSE 65
[2024-11-19] MEDS: HYDROcodone/acetaminophen (*CRX) 10-325 MG TABLET 1 TAB PO (03:11)
[2024-11-19 04:00] VITALS: PULSE 75
[2024-11-19 06:00] VITALS: BP 128/71; PULSE 77; RESP 20; TEMP 35.8; O2SAT 95
[2024-11-19 06:49] LABS: Anion Gap 8 mmol/L (4-12); Blood Urea Nitrogen 32 mg/dL (7-17); Calcium 9.1 mg/dL (8.4-10.2); Carbon Dioxide 26 mmol/L (22-30); Chloride 101 mmol/L (98-107); Estimated CRCL calculation 68 ml/min; Estimated Glomerular Filt Rate > 60; Glucose 208 mg/dL (65-110); Magnesium 2.0 mg/dL (1.6-2.3); Potassium 3.4 mmol/L (3.4-5.0); Sodium 135 mmol/L (137-145)
[2024-11-19 08:00] VITALS: PULSE 72
[2024-11-19] MEDS: INSULIN ASPART (*BKC) 100 UNITS/ML SUB-Q ×2 (09:04→12:04)
[2024-11-19] MEDS: INSULIN ASPART (*BKC) 100 UNITS/ML 35 UNITS SUB-Q ×2 (09:05→12:04)
[2024-11-19] MEDS: oxyBUTYnin CHLORIDE XL 5 MG TAB.ER.24 15 MG PO (09:05)
[2024-11-19] MEDS: PANTOPRAZOLE 40 MG TABLET PO (09:05)
[2024-11-19] MEDS: GABAPENTIN 300 MG CAPSULE PO ×2 (09:05→12:05)
[2024-11-19] MEDS: LIDOCAINE 5% PATCH 1 PATCH TRANSDERM (09:09)
[2024-11-19] MEDS: INSULIN GLARGINE (*BKC) 100 UNITS/ML 60 UNITS SUB-Q (09:10)
--- NOTE | 2024-11-19 11:42 | P.DS_ITS ---
DS: Admitting Diagnosis Discharge Date 11/19/2024 Admitting Diagnosis - SOB - joint swelling - LUL on CPAP - leg edema - T2DM DS: Discharge Diagnosis Discharge Diagnosis (1) (HFpEF) heart failure with preserved ejection fraction: Code(s): I50.30 - Unspecified diastolic (congestive) heart failure Status: Acute (2) Shortness of breath: Code(s): R06.02 - Shortness of breath Status: Acute (3) Joint swelling: Code(s): M25.40 - Effusion, unspecified joint Status: Acute (4) LUL on CPAP: Code(s): G47.33 - Obstructive sleep apnea (adult) (pediatric); Z99.89 - Dependence on other enabling machines and devices Status: Chronic (5) Leg edema: Code(s): R60.0 - Localized edema Status: Acute (6) DM type 2 (diabetes mellitus, type 2): Qualifiers: Diabetes mellitus complication status: with hyperglycemia Diabetes mellitus 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 Workup in the ER revealed WBC 13.1, hemoglobin 13.1, platelet 279, INR 2.1, potassium 4.1, BUN 17, serum creatinine 0.69, blood glucose 202, lactic acid 1.8, calcium 9.9, magnesium 1.8, troponin and creatinine kinase within normal limits, BNP 150, albumin 4.3. Urinalysis positive glucose, 2+ leukocyte esterase, 3-5 RBC, 21-50 WBC. Quad viral screen negative. Chest x-ray demonstrating opacities at the posterior medial right lower lung zone. She was initially started on doxycycline for concern for pneumonia, but patient developed itching so doxycycline was stopped. Patient was admitted for further evaluation of dyspnea with concern for pneumonia. Echo 11/16 TTE 1. Complete two-dimensional, color flow and Doppler transthoracic echocardiogram is performed. 2. There is normal biventricular size and systolic function. 3. There is grade 2 diastolic dysfunction. 4. There is mild aortic stenosis. CT Chest with Dense calcifications within the mitral valve. Trace calcifications within the aortic valve. No focal infiltrate or effusion. Trace bibasilar atelectasis with trace pleural thickening in the left lung base and along the left lateral chest wall. Patient denied cough, fevers. Mild leukocytosis was likely secondary to receiving steroids. Very low suspicion for pneumonia. Patient had peripheral edema, worse on the left. LUE/LLE venous doppler negative for DVT. CT chest was not consistent with CHF, but given echo findings, cardio was consulted and she was started on IV Lasix with improvement in her dyspnea. She was discharged with lasix 20 mg PO daily with orders for repeat BMP in 3 days. She was instructed to follow-up with cardiology as outpatient. Patient also complained of left shoulder pain/swelling and right hand swelling. XR R hand no acute process. XR L shoulder with mild osteoarthritis. Patient is being worked up in the outpatient setting for complaints of muscle weakness, joint pain and fatigue. Per patient, her primary care provider is concerned for polymyositis and she has been started on prednisone 10 mg daily until she can follow-up with rheumatology next month. I have low suspicion for a polymyositis flare as patient's CK is normal and she has minimal weakness on exam. She did receive 3 days of increased steroid dosing with some improvement in her symptoms. Do not feel that prolonged steroid taper is currently warranted due to unclear diagnosis. Also feel that steroids may be contributing to edema at this time. She was encouraged to keep her rheumatology appointment as outpatient and to follow up closely with her PCP with any concerns. After patient was discharge, urine culture results with gram negative bacilli. I personally called patient and she did relay that she is experiencing some urinary frequency. Previous cultures have shown E coli sensitive to Augmentin. Patient reports she tolerates Augmentin and Fosfomycin. Called patient's pharmacy and prescribed Augmentin x5 days. Will follow-up final urine culture results. Patient was discharged home in stable condition. Strict return precautions discussed. Time Spent with Patient Time attestation: Total time spent providing and/or coordinating discharge services: Time spent: Greater than 30 minutes Exam Narrative: General: NAD Eyes: EOMI ENT: neck supple Cardiovascular: Regular rate and rhythm Respiratory: Clear to auscultation, respirations even and unlabored on RA Gastrointestinal: Soft, non tender Genitourinary: no suprapubic tenderness Musculoskeletal: moderate BLE edema Skin: warm, dry Neuro: Alert. Psych: Mood appropriate DS: Data Data Completed and Pending Completed studies during hospitalization: - LUE/LLE venous doppler - chest CT - shoulder XR - hand XR - CXR Labs on day of discharge: Labs from last 24 hours 11/19/24 11/19/24 11/18/24 08:06 06:15 20:11 Sodium 135 L Potassium 3.4 Chloride 101 Carbon Dioxide 26 Anion Gap 8 BUN 32 H Creatinine 0.87 Estim Creat Clear Calc 68 Estimated GFR > 60 Glucose 208 H POC Capillary Glucose 257 H 231 H Calcium 9.1 Magnesium 2.0 Total Creatine Kinase 11/18/24 11/18/24 16:13 08:05 Sodium Potassium Chloride Carbon Dioxide Anion Gap BUN Creatinine Estim Creat Clear Calc Estimated GFR Glucose POC Capillary Glucose 153 H Calcium Magnesium Total Creatine Kinase 37 Preliminary micro results at discharge 11/15/24 17:36 - Preliminary Urine Clean Catch Gram negative bacilli isolated Gram negative bacilli isolated#2 Discharge Plan Discharge Attending physician on discharge: Michael Goldstein Consulting providers: Fabiola Owens; Geraldine Navarro; Della Duran; Laury Moore Discharging Clinician: Della Duran Anticipated Discharge Date/Time: 11/19/24 11:36 Patient Disposition: Home Activity: as tolerated Diet: as tolerated Discharge Instructions: Take all medications as prescribed. Follow-up with your primary care provider sometime this week. Obtain a scale and weigh yourself daily. If you notice a 2-3 lb weight gain, or developing increased swelling or shortness of breath call your primary care doctor to consider increasing lasix. Discuss weaning down steroids which could be contributing to fluid retention. Have your lab work repeated in 3 days to check your kidney function after starting lasix. Your CT scan did not show any concerns for pneumonia so no further antibiotics are warranted. Your X-ray of your left shoulder showed you have some arthritis. Talk to your doctor about outpatient physical therapy if your pain persists. Return to the emergency department if you develop chest pain, severe shortness of breath, persistent fever >100.4, confusion, loss of consciousness. Patient Instructions: Antibiotic Form, Rivaroxaban (By mouth) Patient Language: Maltese Stand Alone Forms: General Discharge Information Follow-up/Referrals: Justen Jean-Baptiste MD [Physician] - Call for Appointment (Follow-up regarding diastolic heart failure) Shahla,Justen Spicer MD [Primary Care Provider] - Call for Appointment (follow- up this week) Discharge Medications: New furosemide [Lasix] 20 mg tablet 20 mg PO DAILY Qty: 30 0RF Continued gabapentin 300 mg capsule 300 mg PO TID exemestane 25 mg tablet 25 mg PO HS ropinirole 5 mg tablet 5 mg PO HS insulin glargine [Lantus Solostar U-100 Insulin] 100 unit/mL (3 mL) insulin pen 50 unit SUBCUT QAM insulin lispro [Humalog KwikPen Insulin] 100 unit/mL insulin pen 32 unit SUBCUT TID Patient Comments: PATIENT EXPERIENCES LOW BLOOD SUGAR IN THE HOSPITAL albuterol sulfate 90 mcg/actuation HFA aerosol inhaler 1 inh inhalation QID PRN (Reason: shortness of breath or wheezing) Qty: 6.7 0RF oxybutynin chloride 15 mg tablet extended release 24hr 15 mg PO DAILY ondansetron 4 mg tablet,disintegrating 4 mg PO Q8H PRN (Reason: nausea and vomiting) Qty: 10 0RF lidocaine 5 % ointment 1 applic topical TID PRN (Reason: skin irritation) Qty: 50 0RF prednisone 10 mg tablet 10 mg PO DAILY Xarelto 20 mg tablet 20 mg PO 0900 pantoprazole [Protonix] 40 mg tablet,delayed release (DR/EC) 40 mg PO BID 30 Days Qty: 60 0RF hydrocodone-acetaminophen 10-325 mg tablet 1 tablet PO Q6H PRN (Reason: pain (scale score 7-10)) 5 Days Qty: 10 0RF Other Ambulatory Orders: Basic Metabolic Panel (Routine) Timeframe: 3 Days Location: Determined by Patient Ordered By: Della Duran Date of admission: 11/16/24 10:22 Primary Care Provider: ViryJusten Admitting Provider: Leigh Escamilla Attending physician on admission: Leigh Escamilla Condition: Stable
[2024-11-19 12:00] VITALS: PULSE 70
--- NOTE | 2024-11-19 12:43 | P.PNCA_ITS ---
Progress Note: A&P Assessment and Plan (1) (HFpEF) heart failure with preserved ejection fraction: Code(s): I50.30 - Unspecified diastolic (congestive) heart failure Status: Acute Assessment and Plan: Her echocardiogram during this admission shows grade 2 diastolic dysfunction. Perhaps an element of CHF, however her CXR does not show pulmonary edema or effusions and her BNP is only very mildly elevated at 150. She is not requiring oxygen. * Discontinue furosemide * Would recommend BMP in 1 week as outpatient * CHF counseling * Compliance with CPAP * BP control * Weight loss Will sign off. Please call with questions. (2) Shortness of breath: Code(s): R06.02 - Shortness of breath Status: Acute Assessment and Plan: Secondary to mild CHF, ? pneumonia. Not requiring oxygen. Dyspnea and orthopnea did improve with 1 dose IV furosemide. (3) Morbid obesity with BMI of 50.0-59.9, adult: Code(s): E66.01 - Morbid (severe) obesity due to excess calories; Z68.43 - Body mass index [BMI] 50.0-59.9, adult Status: Acute Assessment and Plan: Weight loss recommended. Plan Plan and recommendations discussed with Hospitalist. Subjective Date/time seen: 11/19/24 12:43 Interval history: Feels better today. Was able to sleep lying flat last night. No shortness of breath at rest. No chest pain, palpitations. Review of Systems Review of Systems: All systems reviewed & are unremarkable except as noted in HPI and below Exam Const: General: comfortable, no acute distress, alert and awake Orientation/consciousness: patient oriented x3 Other: morbidly obese HENMT: Head: normal to inspection Eyes: General: appearance normal, both eyes and all related structures Pupils: Equal, round and reactive pupils present Neck: Neck: normal visual inspection and supple Carotids: normal carotid upstroke Resp: Effort & Inspection: normal respiratory effort Cardio: Rate: regular rate Rhythm: regular rhythm Heart sounds: S1 normal heart sound present, S2 normal heart sound present and Murmur heart sound present systolic GI: Inspection: distended Auscultation: normal bowel sounds Skin: General skin exam: normal color Neuro: General: patient oriented x3 Cranial nerves: Yes Equal, round and reactive pupils present Extrem: General: pedal edema Psych: Appearance: grossly normal Mental Status: mental status grossly normal Objective Data Vital Signs Vital Signs: Vital Signs - 24 hr 11/18/24 14:00 11/18/24 16:00 11/18/24 20:00 Temperature 37.0 C Pulse Rate 81 82 86 Respiratory Rate 16 16 Blood Pressure 129/81 Pulse Oximetry 97 98 Oxygen Delivery Room Air 11/18/24 20:00 11/18/24 21:25 11/19/24 00:00 Temperature 36.1 C L Pulse Rate 95 86 65 Respiratory Rate 16 Blood Pressure 148/85 H Pulse Oximetry 98 Oxygen Delivery 11/19/24 04:00 11/19/24 06:00 11/19/24 08:00 Temperature 35.8 C L Pulse Rate 75 77 72 Respiratory Rate 20 Blood Pressure 128/71 Pulse Oximetry 95 Oxygen Delivery 11/19/24 09:05 Temperature Pulse Rate Respiratory Rate Blood Pressure Pulse Oximetry Oxygen Delivery Room Air Intake/Output Intake/Output: Intake & Output 11/16/24 11/17/24 11/18/24 11/19/24 23:59 23:59 23:59 23:59 Intake Total 1300 880 540 240 Balance 1300 880 540 240 Meds/Results Medications: Active Medications Generic Name Dose Route Start Last Admin Trade Name Freq PRN Reason Stop Dose Admin Acetaminophen 650 mg 11/15/24 23:50 11/18/24 22:55 Acetaminophen 325 Mg Tablet PO 650 mg Q4H PRN Administration Mild Pain (1-3) or Fever Hydrocodone Bitart/Acetaminophen 1 tab 11/16/24 03:25 11/19/24 03:11 Hydrocodone/Acetaminophen (*Crx) 10-325 Mg Tablet PO 1 tab Q6H PRN Administration pain (scale score 7-10) Albuterol 2 puff 11/16/24 03:25 Albuterol Sulfate (*Sp) Aerosol 1 Puff INHALATION QID PRN shortness of breath or wheezing Dextrose 12.5 gm 11/15/24 23:50 Dextrose 50% 25 Gm/50 Ml Syringe IV PUSH PRN PRN Hypoglycemia Protocol Diphenhydramine HCl 25 mg 11/16/24 03:25 11/18/24 22:55 Diphenhydramine Hcl Inj 50 Mg/Ml Vial IV PUSH 25 mg Q4H PRN Administration Itching Furosemide 40 mg 11/18/24 17:00 11/18/24 17:56 Furosemide Inj 40 Mg/4 Ml Vial IV PUSH 40 mg BID RODERICK Administration Gabapentin 300 mg 11/16/24 03:30 11/19/24 12:05 Gabapentin 300 Mg Capsule PO 300 mg TID RODERICK Administration Glucose 15 gm 11/15/24 23:50 Glucose Oral Gel 15 Gm Of Glucse In 37.5 Gm Tube PO PRN PRN Hypoglycemia Protocol Hydroxyzine HCl 25 mg 11/17/24 12:30 11/19/24 03:12 Hydroxyzine Hcl 25 Mg Tablet PO 25 mg Q6H PRN Administration Itching, anxiety Dextrose 1,000 mls @ 100 mls/hr 11/15/24 23:50 Dextrose 5% 1,000 Ml IVPB PRN PRN Hypoglycemia Protocol Insulin Aspart 3 - 6 units 11/16/24 08:00 11/19/24 12:04 Insulin Aspart (*Bkc) 100 Units/Ml SUB-Q 4 units TIDWM RODERICK Administration Protocol Insulin Aspart 1 - 3 units 11/16/24 21:00 11/18/24 20:34 Insulin Aspart (*Bkc) 100 Units/Ml SUB-Q 1 units HS RODERICK Administration Protocol Insulin Aspart 35 units 11/18/24 17:00 11/19/24 12:04 Insulin Aspart (*Bkc) 100 Units/Ml SUB-Q 35 units TIDWM RODERICK Administration Insulin Glargine 60 units 11/19/24 09:00 11/19/24 09:10 Insulin Glargine (*Bkc) 100 Units/Ml SUB-Q 60 units QAM RODERICK Administration Lidocaine 1 patch 11/19/24 09:00 11/19/24 09:09 Lidocaine 5% Patch TRANSDERM 1 patch DAILY RODERICK Administration Melatonin 5 mg 11/16/24 21:50 11/18/24 20:34 Melatonin 5 Mg Tablet PO 5 mg HS RODERICK Administration Miscellaneous Information 0 each 11/16/24 03:40 11/16/24 04:33 Exemestane 25 Mg Tablet- Nonformulary. Please Obtain A Home Supply If Possible. XX 12/16/24 03:39 Not Given CLARIFY RODERICK Miscellaneous Information 1 each 11/17/24 00:01 Order Clarification -Lidocaine 5 % Ointment XX 12/17/24 00:00 CLARIFY RODERICK Miscellaneous Information 1 each 11/18/24 00:01 Lidocaine Patch Needs Place Of Application XX 12/18/24 00:00 CLARIFY [facility] Non-Formulary Medication 25 mg 11/16/24 21:00 Exemestane PO 12/16/24 20:59 HS [facility] Nonformulary Drug ( 1 applic 11/16/24 09:40 Nonformulary Drug ( TOPICAL Lidocaine 5 % Oi) TID PRN skin irritation Ondansetron HCl 4 mg 11/16/24 09:40 11/16/24 15:36 Ondansetron Hcl Odt 4 Mg Tablet PO 4 mg Q8H PRN Administration nausea and vomiting Oxybutynin Chloride 15 mg 11/16/24 10:00 11/19/24 09:05 Oxybutynin Chloride Xl 5 Mg Tab.Er.24 PO 15 mg DAILY RODERICK Administration Pantoprazole Sodium 40 mg 11/16/24 09:00 11/19/24 09:05 Pantoprazole 40 Mg Tablet PO 40 mg BID RODERICK Administration Prednisone 10 mg 11/19/24 08:00 11/19/24 09:05 Prednisone 10 Mg Tablet PO 10 mg DAILY@0800 [facility] Administration Rivaroxaban 20 mg 11/16/24 17:00 11/18/24 17:56 Rivaroxaban 20 Mg Tablet PO 20 mg DAILY@1700 [facility] Administration Ropinirole HCl 5 mg 11/16/24 03:30 11/18/24 20:33 Ropinirole Hcl 1 Mg Tablet PO 5 mg HS RODERICK Administration Radiology Results: ITS Impressions Chest X-Ray 11/15/24 18:07 IMPRESSION: 1. Opacities at the posterior medial right lower lung zone which could represent atelectasis or pneumonia. Hand X-Ray 11/17/24 23:11 IMPRESSION: No acute osseous finding in the right hand. Venous Doppler Study 11/18/24 10:48 IMPRESSION: No left upper extremity deep venous thrombosis. Chest CT 11/18/24 10:50 IMPRESSION: Dense calcifications within the mitral valve. Trace calcifications within the aortic valve. No focal infiltrate or effusion. Trace bibasilar atelectasis with trace pleural thickening in the left lung base and along the left lateral chest wall Shoulder X-Ray 11/18/24 15:35 IMPRESSION: Mild left glenohumeral osteoarthritis. No acute osseous abnormality. Labs Labs: Laboratory Results - last 24 hr 11/18/24 11/18/24 11/18/24 08:05 16:13 20:11 Sodium Potassium Chloride Carbon Dioxide Anion Gap BUN Creatinine Estim Creat Clear Calc Estimated GFR Glucose POC Capillary Glucose 153 H 231 H Calcium Magnesium Total Creatine Kinase 37 11/19/24 11/19/24 11/19/24 06:15 08:06 11:34 Sodium 135 L Potassium 3.4 Chloride 101 Carbon Dioxide 26 Anion Gap 8 BUN 32 H Creatinine 0.87 Estim Creat Clear Calc 68 Estimated GFR > 60 Glucose 208 H POC Capillary Glucose 257 H 279 H Calcium 9.1 Magnesium 2.0 Total Creatine Kinase
--- NOTE | 2024-11-20 06:59 | P.CDI_ITS ---
CDI Query Clarification Request 1)Please specify type and acuity of heart failure if known. * Acute * Chronic * Acute on Chronic * Unknown * Systolic * Diastolic * Combined Systolic and Diastolic * Unknown 2) Please clarify if pneumonia has been ruled in or ruled out 3) Can you clarify the clinical significance of these findings? Based on the urine culture results, urinary symptoms, and prescribed antibiotics, would a diagnosis such as the following be appropriate to include in medical record? * UTI * cystitis * asymptomatic bacteriuria * other, please specify The medical chart reflects the following: Discharge summary: (1) (HFpEF) heart failure with preserved ejection fraction: Code(s): I50.30 - Unspecified diastolic (congestive) heart failure Status: Acute (2) Shortness of breath: Code(s): R06.02 - Shortness of breath Status: Acute (3) Joint swelling: Code(s): M25.40 - Effusion, unspecified joint Reason for hospitalization: -SOB - joint swelling - leg edema Hospital Course: Patient is a 69 yo female with history of LUL on CPAP, insulin-dependent T2DM who presented to the ED with complaints of SOB, joint swelling and leg edema. Patient was admitted for further evaluation of dyspnea with concern for pneumonia. Patient denied cough, fevers. Mild leukocytosis was likely secondary to receiving steroids. Very low suspicion for pneumonia. Patient had peripheral edema, worse on the left. LUE/LLE venous doppler negative for DVT. CT chest was not consistent with CHF, but given echo findings, cardio was consulted and she was started on IV Lasix with improvement in her dyspnea. After patient was discharge, urine culture results with gram negative bacilli. I personally called patient and she did relay that she is experiencing some urinary frequency. Previous cultures have shown E coli sensitive to Augmentin. Patient reports she tolerates Augmentin and Fosfomycin. Called patient's pharmacy and prescribed Augmentin x5 days. Will follow-up final urine culture results. cardiology documented: 1) (HFpEF) heart failure with preserved ejection fraction: Code(s): I50.30 - Unspecified diastolic (congestive) heart failure Status: Acute Assessment and Plan: Her echocardiogram during this admission shows grade 2 diastolic dysfunction. Perhaps an element of CHF, however her CXR does not show pulmonary edema or effusions and her BNP is only very mildly elevated at 150. She is not requiring oxygen. * Start lasix 40mg IV b.i.d. * Daily BMP while diuresing * Strict I&O * Daily weights * CHF counseling * Compliance with CPAP * BP control * Will also consider adding Entresto, spironolactone, jardiance prior to discharge if BP and renal function are stable.(2) Shortness of breath: Code(s): R06.02 - Shortness of breath Status: Acute Assessment and Plan: Secondary to mild CHF, ? pneumonia. Not requiring oxygen. Will see if she has improvement in dyspnea and orthopnea with some diuresis. Echo 11/16 TTE 1. Complete two-dimensional, color flow and Doppler transthoracic echocardiogram is performed. 2. There is normal biventricular size and systolic function. 3. There is grade 2 diastolic dysfunction. 4. There is mild aortic stenosis. CT Chest with Dense calcifications within the mitral valve. Trace calcifications within the aortic valve. No focal infiltrate or effusion. Trace bibasilar atelectasis with trace pleural thickening in the left lung base and along the left lateral chest wall. Workup in the ER revealed WBC 13.1, hemoglobin 13.1, platelet 279, INR 2.1, potassium 4.1, BUN 17, serum creatinine 0.69, blood glucose 202, lactic acid 1.8, calcium 9.9, magnesium 1.8, troponin and creatinine kinase within normal limits, BNP 150, albumin 4.3. Urinalysis positive glucose, 2+ leukocyte esterase, 3-5 RBC, 21-50 WBC. Quad viral screen negative. Chest x-ray demonstrating opacities at the posterior medial right lower lung zone. She was initially started on doxycycline for concern for pneumonia, but patient developed itching so doxycycline was stopped. CXR 11/15: IMPRESSION: 1. Opacities at the posterior medial right lower lung zone which could represent atelectasis or pneumonia. RFX UR CX DUE TO ABN UA R82.90 Preliminary 11/19/24-0709 LC Organism: Gram negative bacilli isolated *ABNORMAL* Greater than 100,000 colony forming units per mL Organism: Gram negative bacilli isolated *ABNORMAL* Greater than 100,000 colony forming units per mL Gram negative bacilli isolated Gram negative bacilli isolated#2 <Kiesha Andrews RN - Last Filed: 11/20/24 07:17> Clarified Diagnosis Clarified Diagnosis: Acute on chronic HFpEF Acute cystitis <LINDA Catalan - Last Filed: 11/26/24 13:23>
--- NOTE | 2024-11-22 13:16 | PC.NURSE ---
Urine cx growing Klebsieall pneumoiae and proteus mirabilis.Susceptible to Augmentin, which is what pt dc on.
== END 2024-11-19 14:00 | disposition home or self-care (01) | DRG 292 ==
LOC: ANHED 21:10 → ANH3MEDSUR 11-16 00:24
PROVIDERS: Nurse Practitioner Acute Care; Registered Nurse; Admitting Provider General Practice; Emergency Provider Student in an Organized Health Care Education/Training Program; PCP Internal Medicine; Visit Provider Physician Assistant
DX: I11.0 Hypertensive heart disease with heart failure (principal); M33.22 Polymyositis with myopathy; Z68.43 Body mass index [BMI] 50.0-59.9, adult; I50.32 Chronic diastolic (congestive) heart failure; E11.42 Type 2 diabetes mellitus with diabetic polyneuropathy; E11.65 Type 2 diabetes mellitus with hyperglycemia; E66.01 Morbid (severe) obesity due to excess calories; G47.33 Obstructive sleep apnea (adult) (pediatric); G25.81 Restless legs syndrome; G89.29 Other chronic pain; K21.9 Gastro-esophageal reflux disease without esophagitis; M54.9 Dorsalgia, unspecified; Z79.4 Long term (current) use of insulin; Z79.52 Long term (current) use of systemic steroids; Z79.891 Long term (current) use of opiate analgesic; Z85.3 Personal history of malignant neoplasm of breast; Z90.49 Acquired absence of other specified parts of digestive tract; Z99.89 Dependence on other enabling machines and devices; Z86.718 Personal history of other venous thrombosis and embolism; Z86.711 Personal history of pulmonary embolism; Z79.01 Long term (current) use of anticoagulants; Z96.651 Presence of right artificial knee joint
CPT/HCPCS: 36415; 71046; 71250; 73030; 73120; 80048; 80053; 81001; 82085; 82550; 82948; 83605; 83735; 83880; 84100; 84145; 84484; 84550; 85025; 85380; 85610; 85652; 85730; 86140; 87086; 87637; 93005; 93306; 93971; 96374; 96375; 97161; 97165; 97530; 97535; 99285; A9270; G0378; J1171; J1200; J1815; J1938; J2270; J2919; J7512

== ENCOUNTER 2024-11-26 23:56 | Emergency (ER) | payer MEDICARE, MEDICAID, SELFPAY ==
--- NOTE | ~2024-11-26 | XR_ITS ---
Clinical Indication: Shortness of breath PA and lateral views of the chest: Comparison: 11/15/2024 Findings: The lungs are clear, without evidence of focal consolidation or pleural effusion. Cardiome diastinal silhouette is stable. Bones and soft tissues are unremarkable. Impression: Clear lungs. Reviewed, dictated and finalized at location . Impression: Clear lungs.
--- OUTSIDE RECORDS SUMMARY | 2024-11-26 23:59 | XMS_ITS | Encounter Summary ---
Author Organization [employer] Care Team Providers Care White Washer Name Role Phone Justen Gale MD Primary Care Provider [phone] David Roberts APRN, CNP Unavailable [phone] Annel oRd MD Unavailable Encounter Details Date Type Department Care Team (Latest Contact Info) Description 11/25/2024 Travel Social History Tobacco Use Types Packs/Day Years Used Date Smoking Tobacco: Never Smokeless Tobacco: Never Alcohol Use Standard Drinks/Week Comments No 0 (1 standard drink = 0.6 oz pur e alcohol) [facility] Utilities Answer Date Recorded In the past 12 months has Pay with a Tweet electric, gas, oil, or water company threatened [...] living with a partner? Patient declined 08/06/2024 Overall Financial Resource Strain (CARDIA) Answe r Date Recorded How hard is it for you to pa y for the very basics like food, housing, medical care, and heating? Hard 08/06/2024 PHQ-2 Answer Date Recorded Total Score - Questions 1-9 0 07/23 [facility] - Occupational Stress Questionnaire Answer [...] living in a alf (including now)? No 08/06/2024 AUDIT-C Answer Date Recorded Q1: How often do you have a drink containing alcohol? Never 11/25/2024 Q2: How many drinks containi ng alcohol do you have on a typical day when you are drinking? Patient does not drink Q3: How often do you have si x or more drinks on one occasion? Never 11/25/2024 Education Answer Date Recorded What is the [...] as of this encounter Functional Status * AUDIT-C Score Answer Date of Assessment Author 0 11/25/2024 10:08 AM BRENDANT Stephanie Farias MA * Question Answer Date of Assessment Author Q1: How often do you have a drink containing alcohol? Never 11/25/2024 10:08 AM CDT Stephanie Farias MA Q2: How many drinks containing alcohol do you have on a typical day when you are drinking? Patient does not drink 11/25/2024 10:08 AM BRENDANT Stephanie Farias MA Q3: How often do you have six or more drinks on one occasion? Never 11/25/2024 10:08 AM Stephanie Woods MA documented as of this encounter Plan of Treatment Upcoming Encounters Date Type Department Care Team (Late st Contact Info) Description 12/17/2024 3:30 PM CDT Office Visit [facility] - Endocrinology [facility] [address] [place] [phone] Annel Rod MD #[address] [phone] 05/29/2025 1:30 PM CARGO MATE Office Visit [facility] - Family Medicine [facility] [address] [place] [phone] Justen Gale MD #2 [facility] [address] [place] [address] documented as of this encounter Visit Diagnoses Not on filedocumented in this encounter Additional Health Concerns Assessment Noted Time PHQ-9 Depression Total Score: 0 08/02/19 25 1:09 PM CDT documented as of this encounter Care Teams White Washer Relationship Specialty Start Date End Date Justen Gale MD #2 [facility] [address] [place] [address] PCP - General Family Medicine 10/17/17 David Roberts APRN, SAVINGS TELLER [address]2 [place] [address] Nurse Practitioner Advanced Practice Nurse 01/31/22 Annel Rod MD #2 [facility] [address] [place] [address] Consulting Physician Endocrinology 07/01/22 documented as of this encounter
--- OUTSIDE RECORDS SUMMARY | 2024-11-26 23:59 | XMS_ITS | Encounter Summary ---
Author Organization [facility] Address [address] [place] [address] Phone Care Team Providers Care Outreach Nurse Name Role Phone Justen Gale MD Primary Care Provider [phone] David Roberts APRN, ASBESTOS TEXTILE SUPERVISOR Unavailable [phone] Annel Rod MD Unavailable Reason for Referral * Consult, Test & Initiate Treatment (Routine) - Open Specialty Diagnoses / Procedures Referred By Elyssa benavides Referred To Contact Urology Diagnoses OAB (overactive bladder) Pili Elkins APRN, ASBESTOS TEXTILE SUPERVISOR [address] [address] Phone: tel: fax: [facility] #2 [place] [address] Phone: tel: fax: Referral ID Status Reason Start Date Expiration Date Visits Re quested Visits Authorized [id number] Open 11/25/2024 1 1 Scheduling Instructions Karly is being referred for OAB, chronic UTi. Please contact patient for scheduling questions or concerns. * Consult, Test & Initiate Treatment (Routine) - Open Specialty Diagnoses / Procedures Referred By Elyssa benavides Referred To Contact Diagnoses Acute diastolic congestive heart failure (HCC) Pili Elkins APRN, CNP [address] [address] Phone: tel: fax: [facility] [address] [place] [address] Phone: tel: fax: Referral ID Status Reason Start Date Expiration Date Visits Re quested Visits Authorized [id number] Open 11/25/2024 1 1 Scheduling Instructions Karly is being referred for CHF. Please contact patient for scheduling questions or concerns. Reason for Visit * Reason Comments Post-Hospital Follow-up Encounter Details Date Type Department Care Team (Late st Contact Info) Description 11/25/2024 10:00 AM CDT Office Visit [facility] [address] [place] [address] Pili Elkins APRN, CNP [address] [address] Acute diastolic congestive heart failure (HCC) (Primary Dx); Type 2 diabetes mellitus with diabetic polyneuropathy, with long-term current use of insulin (HCC); OAB (overactive bladder); Polymyalgia rheumatica (HCC) Discharge Disposition: Discharged to home or Selfcare Social History Tobacco Use Types Packs/Day Years Used Date Smoking Tobacco: Never Smokeless Tobacco: Never Tobacco Cessation:Counseling Given: No Alcohol Use Standard Drinks/Week Comments No 0 (1 standard drink = 0.6 oz pur e alcohol) [facility] Utilities Answer Date Recorded In the past 12 months has [employer] gas, oil, or water creads threatened to shut off services in your [...] often do you attend chur ch or sikh services? More than 4 times per year [...] Total Score - Questions 1-9 0 07/23 [facility] - Occupational [...] any time in the past 12 m [facility], were you homeless or living in a usp (including now)? No 08/06/2024 AUDIT-C Answer Date [...] Sign Reading Time Taken Comments Blood Pressure 144/88 11/25/2024 9:59 AM CDT Pulse 95 11/25/2024 9:59 AM CDT Temperature 36.3 C (97.4 F) 11/25/2024 9:59 AM CDT Respiratory Rate 16 11/25/2024 9:59 AM CDT Oxygen Saturation 94% 11/25/2024 9:59 AM CDT Inhaled Oxygen Concentration - - Weight - - Height 152.4 cm (5') 11/25/2024 9:59 AM CDT Body Mass Index - - documented in this encounter Functional Status * AUDIT-C Score Answer Date of Assessment Author 0 11/25/2024 10:08 AM CDT Stephanie Farias MA * Question Answer Date of Assessment Author Q1: How often do you have a drink containing alcohol? Never 11/25/2024 10:08 AM Stephanie Woods MA Q2: How many drinks containing alcohol do you have on a typical day when you are drinking? Patient does not drink 11/25/2024 10:08 AM Stephanie Woods MA Q3: How often do you have six or more drinks on one occasion? Never 11/25/2024 10:08 AM Stephanie Woods MA documented as of this encounter Patient Instructions * Attachments The following attachments cannot be sent through Care Everywhere. * Heart Failure Diagnosis Sizb-wo-Hhnn (Ugandan) * Heart Failure: Eating Plan (Ugandan) * Heart Failure: How to Manage (Ugandan) * Heart Failure Action Plan (Ugandan) * Heart Failure Self-Care Lfpf-gj-[id number] (Ugandan) * Heart Failure and Exercise: What to Know (Ugandan) documented in this encounter Progress Notes * Pili Elkins APRN, ASBESTOS TEXTILE SUPERVISOR - 11/25/2024 10:00 AM CDT [facility] #2 [facility] [address] Dept: [phone] Dept Loc: [phone] Loc Patient: Karly Marques : 1955 Sex: female Subjective Subjective: History of Present Illness The patient presents today for a hospital follow-up. She was recently diagnosed with acute diastolic heart failure, which is a new condition for her. She experienced leg swelling and weight gain, which led to her hospitalization on 11/18/2024. Initially, she was discharged without a diagnosis, but her condition worsened, prompting a second hospital visit. She was admitted due to shortness of breath and a flare-up of her polymyositis. A chest x-ray suggested pneumonia, but this was later ruled out. An echocardiogram performed after her admission revealed congestive heart failure. She was prescribed Lasix, which she took for 4 days before discontinuing it due to running out of her overactive bladder medication. She reports that the Lasix did not significantly increase her urination while in the hospital, but she noticed an increase after returning home. Her leg swelling has improved, although she still experiences some puffiness. Her shortness of breath is intermittent, with good days and bad days. She was advised to lose weight, exercise, and follow a heart-healthy diet. The shook machine operator did not recommend a follow-up, but the PA suggested she establish care with a shook machine operator. She also reports feeling exhausted. She is currently on prednisone 7.5 mg and has an upcoming appointment with her police stenographer next week. She reports pain in her arms when raising them, which she attributes to her myositis rather than arthritis. She is currently taking Augmentin for a potential UTI. She has a history of chronic UTIs and is seeking a referral to a urologist. She is on insulin for diabetes and checks her blood sugar 3 times a day. Her last A1c was 8. She is on oxybutynin 10 mg for overactive bladder. Social History: Living Condition: She reports having to work harder at home to assist her , who cannot walk. Review of Systems Review of Systems Constitutional: Positive for activity change and fatigue. Negative for appetite change, chills, diaphoresis and fever. Respiratory: Positive for shortness of breath. Negative for cough and wheezing. Cardiovascular: Positive for leg swelling. Negative for chest pain and palpitations. Gastrointestinal: Negative for abdominal distention, abdominal pain, anal bleeding, blood in stool,constipation, diarrhea, nausea, rectal pain and vomiting. Genitourinary: Positive for frequency and urgency. Negative for difficulty urinating, dysuria, flank pain and pelvic pain. Musculoskeletal: Positive for arthralgias. Objective Objective: Visit Vitals BP 144/88 (BP Location: Right Arm, BP Position: Sitting, BP Cuff Size: Large) Pulse 95 Temp 97.4 ??F (36.3 ??C) (Temporal) Resp 16 Physical Exam Physical Exam Vitals and nursing note reviewed. [...] regular rhythm. Pulses: Normal pulses. Heart sounds: Murmur heard. Crescendo systolic murmur is present with a grade of 3/6. No friction rub. No gallop. Pulmonary: Effort: Pulmonary effort is normal. No respiratory distress. Breath sounds: Normal breath sounds. No stridor. No wheezing, rhonchi or rales. Abdominal: General: Bowel sounds are normal. There is no distension. Palpations: Abdomen is soft. Tenderness: There is no abdominal tenderness. There is no guarding or rebound. Musculoskeletal: General: No tenderness. Normal range of motion. Cervical back: Normal range of motion. Right lower le+ Pitting Edema present. Left lower le+ Pitting Edema present. Skin: General: Skin is warm and dry. Neurological: Mental Status: She is alert and oriented to person, place, and time. Mental status is at baseline. Psychiatric: Mood and Affect: Mood normal. Behavior: Behavior normal. Thought Content: Thought content normal. Judgment: Judgment normal. Physical Exam Respiratory: Clear to auscultation, no wheezing, rales or rhonchi Cardiovascular: Regular rate and rhythm, no murmurs, rubs, or gallops Extremities: Edema present Results Labs - A1c: 8 Imaging - Echocardiogram: Normal biventricular size and systolic function, grade 2 diastolic dysfunction and mild aortic stenosis - CT chest: Some pleural thickening - Ultrasound Dopplers of legs: Negative for DVT Medical Decision Making: Assessment & Plan Diagnoses and all orders for this visit: Acute diastolic congestive heart failure (HCC) - CARDIOLOGY REFERRAL; Future Type 2 diabetes mellitus with diabetic polyneuropathy, with long-term current use of insulin ([facility]) OAB (overactive bladder) - oxybutynin (DITROPAN-XL) 10 MG TABLET SR 24 HR; Take 1 Tablet by mouth daily. - UROLOGY REFERRAL; Future Polymyalgia rheumatica (HCC) Assessment & Plan 1. Congestive heart failure. - Recently diagnosed with congestive heart failure, experiencing shortness of breath and edema. - Physical exam findings include swelling, which has improved but is still present. - Discussed the importance of resuming Lasix to manage symptoms and the need for a shook machine operator referral. - Advised to monitor blood pressure at home for about a week after resuming Lasix. 2. Aortic stenosis. - Echocardiogram showed mild aortic stenosis. - Physical exam findings include monitoring for progression of the condition. - Discussed the importance of controlling blood pressure and diabetes. - Referral to a shook machine operator for further evaluation. 3. Type 2 diabetes mellitus. - A1c reported to be around 8 during the recent hospital visit. - Physical exam findings include monitoring blood sugar levels. - Discussed the impact of prednisone on blood sugar levels and the importance of continuing the current insulin regimen. - Advised to continue monitoring blood sugar levels regularly. 4. Polymyositis. - Reports of polymyositis flaring up. - Physical exam findings include pain in the arms and shoulders. - Discussed the current prednisone dosage of 7.5 mg and the upcoming police stenographer appointment. - Follow-up with police stenographer scheduled for next week to manage the condition. 5. Overactive bladder. - Ran out of overactive bladder medication, affecting the ability to take Lasix. - Physical exam findings include issues with urinary incontinence. - Discussed the need for oxybutynin 10 mg prescription. - Prescription for oxybutynin 10 mg will be provided. 6. Chronic urinary tract infection. - History of chronic UTIs, recently diagnosed with a UTI during the hospital stay. - Physical exam findings include ongoing treatment with Augmentin. - Discussed the need for further management by a urologist. - Referral to a urologist will be made. documented in this encounter Plan of Treatment Upcoming Encounters Date Type Department Care Team (Late st Contact Info) Description 12/17/2024 3:30 PM CDT Office Visit [facility] - Endocrinology - [place] [address] [place] [phone] Annel Rod MD #[address] [phone] 05/29/2025 1:30 PM HEAD OF OPERATION AND LOGISTICS Office Visit [facility] - Family Medicine - [place] [address] [place] [address] Justen Gale MD #2 [facility] [address] [place] [address] Scheduled Referrals Name Type Priority Associated Diagnoses Order Schedule CARDIOLOGY REFERRAL Outpatient Referral Routine Acute diastolic congestive heart failure (HCC) Expected: 11/25/2024, Expires: 11/25/2025 UROLOGY REFERRAL Outpatient Referral Routine OAB (overactive bladder) Expected: 11/25/2024, Expires: 11/25/2025 documented as of this encounter Visit Diagnoses Diagnosis Acute diastolic congestive heart failure (HCC)- Primary Acute diastolic heart failure Type 2 diabetes mellitus with diabetic polyneuropathy, with long-term current use of insulin (HCC) OAB (overactive bladder) Hypertonicity of bladder Polymyalgia rheumatica (HCC) Polymyalgia rheumatica documented in this encounter Additional Health Concerns Assessment Noted Time PHQ-9 Depression Total Score: 0 08/02/19 25 1:09 PM CDT documented as of this encounter Care Teams Outreach Nurse Relationship Specialty Start Date End Date Justen Gale MD #2 [facility] [address] [place] [address] PCP - General Family Medicine 10/17/17 David Roberts APRN, NETTA #2 [place] [address] Nurse Practitioner Advanced Practice Nurse 01/31/22 Annel Rod MD #2 [facility] [address] [place] [address] Consulting Physician Endocrinology 07/01/22 documented as of this encounter
--- OUTSIDE RECORDS SUMMARY | 2024-11-26 23:59 | XMS_ITS | Encounter Summary ---
Author Organization [facility] Address [address] [place] [address] Phone Care Team Providers Care School Aide Name Role Phone Justen Gale MD Primary Care Provider David Roberts APRN, DIRECTOR CLINICAL PHARMACOLOGY Unavailable Annel Rod MD Unavailable Reason for Visit * Reason Onset Date Comments Sore Throat 06/29/2020 Encounter Details Date Type Department Care Team (Late st Contact Info) Description 06/29/2020 Telephone [facility] [place], [place] [address] [place] [address] Justen Gale MD #[address] [address] Sore Throat Social History Tobacco Use Types [...] COVID-19? No / Unsure 06/29/2020 8:43 AM LOADING MACHINE OPERATOR HELPER documented as of this encounter Miscellaneous Notes * Telephone Encounter - Gail Lucero RN - 06/29/2020 3:53 PM CST Attempted to call mailbox is full. Pt does not need testing ING MACHINE OPERATOR HELPER * Telephone Encounter - Vince Hermosillo MD - 06/29/2020 3:13 PM CST No covid testing needed. If the er thought that it was warranted then they would have done this. ING MACHINE OPERATOR HELPER * Telephone Encounter - Marlys Sorensen RN - 06/29/2020 8:36 AM CST Patient calling. Patient is calling to schedule Hospital/ED/Prompt-Care follow up appointment. Hospital/ED/Prompt-Care Site: [facility] ED Records Requested: Yes Reason [...] f/up and yearly PAP appointments? Please advise. ING MACHINE OPERATOR HELPER documented in this encounter Plan of Treatment Upcoming Encounters Date Type Department Care Team (Late st Contact Info) Description 12/17/2024 3:30 PM CDT Office Visit [facility] - Endocrinology - [place] [address] [place] [address] Annel Rod MD #2 [facility] [address] [place] [address] 05/29/2025 1:30 PM LOADING MACHINE OPERATOR HELPER Office Visit [facility] - Family Medicine [facility] #2 [place] [address] Justen Gale MD #2 [facility] [address] [place] [address] documented as of this encounter Visit Diagnoses Not on filedocumented in this encounter Additional Health Concerns Infection Onset Date Last Indicated Resolved Time COVID - 19 08/01/2024 08/01/2024 08/01/2024 3:20 PM CDT Assessment Noted Time PHQ-9 Depression Total Score: 0 09/08/19 19 1:00 PM CDT documented as of this encounter Care Teams School Aide Relationship Specialty Start Date End Date Justen Gale MD #2 [facility] [address] [place] [address] PCP - General Family Medicine 10/17/17 David Roberts, CHILD CARE LEADER, DIRECTOR CLINICAL PHARMACOLOGY #2 [place] [address] Nurse Practitioner Advanced Practice Nurse 01/31/22 Annel Rod MD #2 [facility] [address] [place] [address] Consulting Physician Endocrinology 07/01/22 documented as of this encounter
--- OUTSIDE RECORDS SUMMARY | 2024-11-26 23:59 | XMS_ITS ---
Author Organization [facility] Address [address] [place] [address] Care Team Providers Care Bench Worker Binding Name Role Phone Liu Jerez MD Unavailable Albert Corbin MD Unavailable Justen Gale MD Primary Care Provider Khris Arthur MD Unavailable [phone] Ko Melendez MD Unavailable John Paul Moyer MD Unavailable Annel Rod MD Unavailable Anali MARSHALL MD, Carlos M. Unavailable Active Problems Problem Noted Date Diagnosed Date Urinary tract infection 05/22/2024 Assessment & Plan (05/26/2024 10:08 AM PUBLIC HEALTH OUTREACH WORKER): Presenting with urinary symptoms of right [...] 05/22/2024 Assessment & Plan (05/25/2024 7:52 AM PUBLIC HEALTH OUTREACH WORKER): Hx of breast cancer c/b DVT/bilateral [...] 05/22/2024 Assessment & Plan (05/22/2024 1:14 PM PUBLIC HEALTH OUTREACH WORKER): -long-standing chronic back pain -CT L [...] 09/12/2021 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) 2021 certified phlebotomist (current) use 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 inhibitors 10/17/2019 Thyroid [...] complication, without long-term current use of insulin ([facility]) 10/23/2017 Assessment & Plan (10/23/2017 [...] 10/13/2017 Assessment & Plan (05/22/2024 12:29 PM PUBLIC HEALTH OUTREACH WORKER): -Hx stage II, ER positive, HER2 [...] 08/01/2017 Assessment & Plan (05/22/2024 12:33 PM PUBLIC HEALTH OUTREACH WORKER): -Hx LUL -Hospital provided CPAP ordered History of DVT (deep vein thrombosis) 08/01/2017 History of pulmonary embolism 08/01/2017 Generalized weakness 07/27/2017 Dyspnea 07/27/2017 Unintentional weight loss 07/27/2017 Acute cystitis without hematuria 07/27/2017 Nausea and vomiting 07/26/2017 Overview (07/28/2017): Added automatically from request for surgery [id number] Pulmonary embolism 08/09/2016 Assessment & Plan (10/23/2017 2:05 AM CDT): On Rivaroxaban Lymphedema of left upper extremity 08/09/2016 Assessment & Plan (05/25/2024 7:53 AM PUBLIC HEALTH OUTREACH WORKER): S/p L axillary lymph node dissection [...] syndrome Assessment & Plan (05/22/2024 11:18 AM PUBLIC HEALTH OUTREACH WORKER): -continue home Requip 5mg nightly Pain of lower extremity 03/12/2013 Overview (07/29/2016): Leg pain Essential hypertension Assessment & Plan (05/23/2024 10:42 AM PUBLIC HEALTH OUTREACH WORKER): -Chart history of HTN but not on meds -BP elevated on admission, likely some pain contributing -Monitor closely once pain under adequate control, discussed following up with PCP for this Chronic anticoagulation Restless leg syndrome 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 Type 2 diabetes mellitus without complication Assessment & Plan (05/24/2024 1:39 PM PUBLIC HEALTH OUTREACH WORKER): -Last Ha1c 8.4 in 2023, repeat [...] left female breast, unspecified estrogen receptor status (HCC)MCFP (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
--- OUTSIDE RECORDS SUMMARY | 2024-11-27 | XMS_ITS | Clinical Summary ---
Author Organization [facility] Address [address] [place] [id number] Care Team Providers Care Bilingual Administrative Assistant Name Role Phone Liu Jerez MD Unavailable [phone] Albert Corbin MD Unavailable Justen Gale MD Primary Care Provider Khris Arthur MD Unavailable [phone] Ko Melendez MD Unavailable [phone] John Paul Moyer MD Unavailable Annel Rod MD Unavailable Anali MARSHALL MD, Carlos M. 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 10/17/2019 Thyroid [...] without long-term current use of insulin ([facility]) 10/23/2017 Assessment & Plan [...] 10/13/2017 Assessment & Plan (05/22/2024 12:29 PM USABILITY ENGINEER): -Hx stage II, ER positive, HER2 negative [...] 08/01/2017 Assessment & Plan (05/22/2024 12:33 PM USABILITY ENGINEER): -Hx LUL -Hospital provided CPAP ordered History of DVT (deep vein thrombosis) 08/01/2017 History of pulmonary embolism 08/01/2017 Generalized weakness 07/27/2017 Dyspnea 07/27/2017 Unintentional weight loss 07/27/2017 Acute cystitis without hematuria 07/27/2017 Nausea and vomiting 07/26/2017 Overview (07/28/2017): Added automatically from request for surgery [id number] Pulmonary embolism 08/09/2016 Assessment & Plan (10/23/2017 2:05 AM CDT): On Rivaroxaban Lymphedema of left upper extremity 08/09/2016 Assessment & Plan (05/25/2024 7:53 AM USABILITY ENGINEER): S/p L axillary lymph node dissection 2014, [...] syndrome Assessment & Plan (05/22/2024 11:18 AM USABILITY ENGINEER): -continue home Requip 5mg nightly Pain of lower extremity 03/12/2013 Overview (07/29/2016): Leg pain Essential hypertension Assessment & Plan (05/23/2024 10:42 AM USABILITY ENGINEER): -Chart history of HTN but not on meds -BP elevated on admission, likely some pain contributing -Monitor closely once pain under adequate control, discussed following up with PCP for this Chronic anticoagulation Restless leg syndrome 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 Type 2 diabetes mellitus without complication Assessment & Plan (05/24/2024 1:39 PM USABILITY ENGINEER): -Last Ha1c 8.4 in 2023, repeat 8.7 [...] History Date Comments DVT (deep venous thrombosis) PE (pulmonary thromboembolism) CHF (congestive heart failure) (HCC) Breast CA (HCC) RLS (restless legs syndrome) DM (diabetes mellitus) HTN (hypertension) LUL (obstructive sleep apnea) Obesity [...] Recorded In the past 12 months has [employer], gas, oil, or water [employer] threatened to shut off services in your [...] on file Legal Sex Female 12:24 AM USABILITY ENGINEER Gender Identity Not on file Sexual [...] CDT HEMOGLOBIN A1C STAT 05/21/2024 4:20 PM USABILITY ENGINEER LIPID PANEL STAT 05/21/2024 4:20 PM USABILITY ENGINEER DEXA AXIAL SKELETON BONE DENSITY 1 OR [...] last reviewed 2021. Testing performed by: [facility], [address] [place] [address]., [address] Blood 07/01/2024 2:02 PM CDT 07/01/2024 2:12 PM CDT Ilana Stevens MD LAB BLOOD ORDERABLES F inal Result [facility] [address] [facility] [place] [address] * (ABNORMAL) Hemoglobin A1c (05/21/2024 4:20 PM USABILITY ENGINEER) Hgb A1C 8.7(H) 4.0 - 5.6 % Estimated Average Glucose 203 mg/dL [facility] Comment: The ADA recommends reporting an estimated Average Glucose (eAG) with all Hemoglobin A1c results using the equation derived from a study of 507 normal and diabetic adults. Minority populations were underrepresented and children were not included. (Diabetes Care 2020; 43(S1): S66-S76). The eAG is not equivalent to a fasting glucose. Blood 05/21/2024 4:20 PM USABILITY ENGINEER 05/21/2024 4:55 PM USABILITY ENGINEER us Leo Henry MD LAB BLOOD ORDERABLES Final Result [facility] Department [place] [address] * (ABNORMAL) Lipid panel (05/21/2024 4:20 PM USABILITY ENGINEER) Cholesterol 205(H) 30 - 199 mg/dL Comment: [...] 2017. Triglycerides 92 <=149 mg/dL [facility] Comment: Interpretive Data Ages < [...] 2017. HDL 55 >=40 mg/dL [facility] Comment: Interpretive Data Ages < [...] mg/dL High: >160 mg/dL Calculated using the eKdar LDL-C estimating equation. This equation was implemented [...] [facility] Blood 05/21/2024 4:20 PM USABILITY ENGINEER 05/21/2024 4:50 PM USABILITY ENGINEER Narrative [facility] - 05/22/2024 4:17 PM USABILITY ENGINEER Reflex us Leo Henry MD LAB BLOOD ORDERABLES Final Result [facility] Department [place] [address] * Dexa Axial Skeleton Bone Density 1 or 2 Site (08/02/2022 10:53 AM CDT) Anatomical Region Laterality Modality Body N/A Radiographic Lizeth ging Narrative 08/02/2022 3:34 PM CDT Patient Name: Karly Marques Date of : 1955 Date of scan: 08/02/2022 Bone mineral density was performed on a [employer] Discovery Densitometer. Based on machine cross-calibration [...] by the International Society of Clinical Densitometry. [id number] us Khris Arthur MD IMG DXA PROCEDURES [...] agrees with it. ACC# Date Time Exam [id number] Aug 19, 2016 14:27:00 [facility] [id number] Diag Mamm, inc CAD, unilat L Technologist(s): Carla Harris; ; [id number] Aug 19, 2016 15:39:00 [facility] [id number] Breast US unilateral, ltd L ACC# Date Time Exam [id number] Aug 19, 2016 14:27:00 [facility] [id number] Diag Mamm, inc CAD, unilat L Technologist(s): Carla Harris; ; [id number] Aug 19, 2016 15:39:00 C 30810 Breast US unilateral, ltd L EXAMINATION: LEFT [...] SARABIA M.D. on Aug 19 2016 4:20P [id number] Procedure Note Miscellaneous, Not In File / Provider, MD Tyler - 09/17/2016 ANTHONY SARABIA M.D. JUDY RINCON M.D. FINAL REPORT The radiology attending physician has personally reviewed this study, and has reviewed and/or edited this written report and agrees with it. ACC# Date Time Exam [id number] Aug 19, 2016 14:27:00 [facility] [id number] Diag Mamm, inc CAD, unilat L Technologist(s): Carla Harris; ; [id number] Aug 19, 2016 15:39:00 [facility] [id number] Breast US unilateral, ltd L ACC# Date Time Exam [id number] Aug 19, 2016 14:27:00 [facility] [id number] Diag Mamm, inc CAD, unilat L Technologist(s): Carla Harris; ; [id number] Aug 19, 2016 15:39:00 [facility] [id number] Breast US unilateral, ltd L EXAMINATION: LEFT [...] SARABIA M.D. on Aug 19 2016 4:20P [id number] us Not In File Miscellaneous IMG MAMMO PROCEDURES F inal Result from Last 3 Months or Most Recently Relevant to Health Maintenance Insurance IDAR [facility] MEDICARE ADVANTAGE [facility] Address: [address] [address] [place] [address] [facility] MEDICARE ADVANTAGE [facility] MEDICARE ADVANTAGE [facility] Address: [address] [address] [place] [address] Advance Directives For more information, please contact: [phone] Documents on File Type Date Recorded Patient Java Performance Engineer Expl anation ADVANCE DIRECTIVE 12/23/2021 2:49 PM Power of Machine Feeder Floorperson-Medical ADVANCE DIRECTIVE 12/23/2021 2:49 PM Living Will [...] on File Name Relationship Healthcare Agent [facility] Yunior Marques Daughter Health Care Agent Jimmie Marques Spouse First Alternate Health Care Agent Care Teams Bilingual Administrative Assistant Relationship Specialty Start Date End Date Justen Gale MD 2 [facility] [address] [place] [address] PCP - General 10/09/17 Liu Jerez MD Consulting Physician Gastroenterology 07/28/[address] [place] [address] [facility] [address] [place] [address] Consulting Physician Pulmonary Disease 08/03/17 [place] [address] [place] [address] [address] [place] [address] Medical Oncologist/Nurse Consultant Medical Oncology 10/23/17 [place] [address] [address] Surgeon Orthopedic Surgery 10/23/17 [place] [address] [address] Consulting Physician Pain Management 10/23/17 [place] [address] [address] Referring Physician General Surgery 01/26/18 [place] [address] [address] [facility] [address] [place] [address] Consulting Physician Neurology 01/26/18
--- OUTSIDE RECORDS SUMMARY | 2024-11-27 | XMS_ITS | Referral Summary ---
Author Organization [facility] Address [address] [place] [address] Care Team Providers Care Tubing Supervisor Name Role Phone Liu Jerez MD Unavailable Albert Corbin MD Unavailable [phone] Justen Gale MD Primary Care Provider Khris Arthur MD Unavailable [phone] Ko Melendez MD Unavailable [phone] John Paul Moyer MD Unavailable [phone] Annel Rod MD Unavailable Anali MARSHALL MD, Carlos M. 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 10/17/2019 [...] complication, without long-term current use of insulin ([facility]) 10/23/2017 Assessment & Plan [...] 10/13/2017 Assessment & Plan (05/22/2024 12:29 PM SERVICE WORKER HELPER): -Hx stage II, ER positive, HER2 negative [...] 08/01/2017 Assessment & Plan (05/22/2024 12:33 PM SERVICE WORKER HELPER): -Hx LUL -Hospital provided CPAP ordered History of DVT (deep vein thrombosis) 08/01/2017 History of pulmonary embolism 08/01/2017 Generalized weakness 07/27/2017 Dyspnea 07/27/2017 Unintentional weight loss 07/27/2017 Acute cystitis without hematuria 07/27/2017 Nausea and vomiting 07/26/2017 Overview (07/28/2017): Added automatically from request for surgery [id number] Pulmonary embolism 08/09/2016 Assessment & Plan (10/23/2017 2:05 AM CDT): On Rivaroxaban Lymphedema of left upper extremity 08/09/2016 Assessment & Plan (05/25/2024 7:53 AM SERVICE WORKER HELPER): S/p L axillary lymph node dissection 2014, [...] syndrome Assessment & Plan (05/22/2024 11:18 AM SERVICE WORKER HELPER): -continue home Requip 5mg nightly Pain of lower extremity 03/12/2013 Overview (07/29/2016): Leg pain Essential hypertension Assessment & Plan (05/23/2024 10:42 AM SERVICE WORKER HELPER): -Chart history of HTN but not on meds -BP elevated on admission, likely some pain contributing -Monitor closely once pain under adequate control, discussed following up with PCP for this Chronic anticoagulation Restless leg syndrome 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 More than 4 times [...] on file Legal Sex Female 12:24 AM SERVICE WORKER HELPER Gender Identity Not on file [...] CDT HEMOGLOBIN A1C STAT 05/21/2024 4:20 PM SERVICE WORKER HELPER LIPID PANEL STAT 05/21/2024 4:20 PM SERVICE WORKER HELPER DEXA AXIAL SKELETON BONE DENSITY 1 OR [...] [facility], [address] [place] [address]., [address] Blood 07/01/2024 2:02 PM CDT 07/01/2024 2:12 PM CDT us Ilana Stevens MD LAB BLOOD ORDERABLES F inal Result [facility] [address] [facility] [place] [address] * (ABNORMAL) Hemoglobin A1c (05/21/2024 4:20 PM SERVICE WORKER HELPER) Hgb A1C 8.7(H) 4.0 - 5.6 % Estimated Average Glucose 203 mg/dL [facility] Comment: The ADA recommends reporting an estimated Average Glucose (eAG) with all Hemoglobin A1c results using the equation derived from a study of 507 normal and diabetic adults. Minority populations were underrepresented and children were not included. (Diabetes Care 2020; 43(S1): S66-S76). The eAG is not equivalent to a fasting glucose. Blood 05/21/2024 4:20 PM SERVICE WORKER HELPER 05/21/2024 4:55 PM SERVICE WORKER HELPER us Leo Henry MD LAB BLOOD ORDERABLES Final Result [facility] [place] [address] * (ABNORMAL) Lipid panel (05/21/2024 4:20 PM SERVICE WORKER HELPER) Cholesterol 205(H) 30 - 199 mg/dL Comment: [...] 2017. Triglycerides 92 <=149 mg/dL [facility] Comment: Interpretive Data Ages < [...] 2017. HDL 55 >=40 mg/dL [facility] Comment: Interpretive Data Ages < [...] LDL, calculated 134(H) <=129 mg/dL [facility] Comment: Interpretive Data Ages < [...] 2023. Non-HDL Cholesterol 150 mg/dL [facility] Comment: Interpretive Data Ages < [...] on 2017. Chol/HDL ratio 4 [facility] Blood 05/21/2024 4:20 PM SERVICE WORKER HELPER 05/21/2024 4:50 PM SERVICE WORKER HELPER Narrative [facility] - 05/22/2024 4:17 PM SERVICE WORKER HELPER Reflex us Leo Henry MD LAB BLOOD ORDERABLES Final Result [facility] Department [place] [address] * Dexa Axial Skeleton Bone Density 1 or 2 Site (08/02/2022 10:53 AM CDT) Anatomical Region Laterality Modality Body N/A Radiographic Lizeth ging Narrative 08/02/2022 3:34 PM CDT Patient Name: Karly Marques Date of : 1955 Date of scan: 08/02/2022 Bone mineral density was performed on a [employer] Discovery Densitometer. Based on machine cross-calibration and [...] by the International Society of Clinical Densitometry. [id number] Khris Arthur MD [facility] DXA PROCEDURES F inal Result * COLONOSCOPY [...] this written report and agrees with it. [facility]# Date Time Exam [id number] Aug 19, 2016 14:27:00 [facility] [id number] Diag Mamm, inc CAD, unilat L Technologist(s): Carla Harris; ; [id number] Aug 19, 2016 15:39:00 [facility] [id number] Breast US unilateral, ltd L ACC# Date Time Exam [id number] Aug 19, 2016 14:27:00 [facility] [id number] Diag Mamm, inc CAD, unilat L Technologist(s): Carla Harris; ; [id number] Aug 19, 2016 15:39:00 [facility] [id number] Breast US unilateral, ltd L EXAMINATION: LEFT [...] SARABIA M.D. on Aug 19 2016 4:20P [id number] Procedure Note Miscellaneous, Not In File / Provider, Historical, MD - 09/17/2016 ATNHONY SARABIA M.D. JUDY RINCON M.D. FINAL REPORT The radiology attending physician has personally reviewed this study, and has reviewed and/or edited this written report and agrees with it. ACC# Date Time Exam [id number] Aug 19, 2016 14:27:00 [facility] [address] Diag Mamm, inc CAD, unilat L Technologist(s): Carla Harris; ; [id number] Aug 19, 2016 15:39:00 [facility] [id number] Breast US unilateral, ltd L ACC# Date Time Exam [id number] Aug 19, 2016 14:27:00 [facility] [address] Diag Mamm, inc CAD, unilat L Technologist(s): Carla Harris; ; [id number] Aug 19, 2016 15:39:00 C 31940 Breast US unilateral, ltd L EXAMINATION: LEFT [...] SARABIA M.D. on Aug 19 2016 4:20P [id number] us Not In File Miscellaneous IMG MAMMO PROCEDURES F inal Result from Last 3 Months or Most Recently Relevant to Health Maintenance Insurance [facility] MEDICARE ADVANTAGE [facility] MEDICARE ADVANTAGE [employer] MEDICARE ADVANTAGE Advance Directives For more information, please contact: [phone] Documents on File Type Date Recorded Patient Form Setter Helper Expl anation ADVANCE DIRECTIVE 12/23/2021 2:49 PM Power of Sub Prior-Medical ADVANCE DIRECTIVE 12/23/2021 2:49 PM Living Will [...] First Alternate Health Care Agent Care Teams Tubing Supervisor Relationship Specialty Start Date End Date Justen Gale MD 2 [facility] [address] [place] [address] PCP - General 10/09/17 Liu Jerez MD Consulting Physician Gastroenterology 07/28/17 [place] [address] [facility] [address] [place] [address] Consulting Physician Pulmonary Disease 08/03/17 Khris Arthur MD [address] [facility] [address] [place] [address] Medical Oncologist/Prosthetist Medical Oncology 10/23/17 [place] [address] [facility] [address] [place] [address] Surgeon Orthopedic Surgery 10/23/17 [place] [address] [facility] [address] [place] [address] Consulting Physician Pain Management 10/23/17 [place] [address] [facility] [address] [place] [address] Referring Physician General Surgery 01/26/18 [place] [address] [facility] [address] [place] [address] Consulting Physician Neurology 01/26/18
--- OUTSIDE RECORDS SUMMARY | 2024-11-27 | XMS_ITS | Encounter Summary ---
Author Organization [facility] Address [address] [place] [address] Phone Care Team Providers Care Proposal Analyst Name Role Phone Justen Gale MD Primary Care Provider [phone] David Roberts APRN, PARTS TECHNICIAN Unavailable Annel Rod MD Unavailable Reason for Visit * Reason Comments Medication Refill Encounter Details Date Type Department Care Team (Late st Contact Info) Description 02/07/2020 Refill [facility] [address] [address] Justen Gale MD #[address] [address] Medication Refill Social History Tobacco Use Types [...] Description 12/17/2024 3:30 PM CDT Office Visit [facility] Medical [facility] - Endocrinology - [place] [address] [place] [address] Annel Rod MD #2 [facility] [address] [place] [address] 05/29/2025 1:30 PM FUR TRIMMING MACHINE OPERATOR Office Visit [facility] - Family Medicine - [place] [address] [place] [address] Justen Gale MD #2 [facility] [address] [place] [address] documented as of this encounter Visit Diagnoses Not on filedocumented in this encounter Additional Health Concerns Infection Onset Date Last Indicated Resolved Time COVID - 19 08/01/2024 08/01/2024 08/01/2024 3:20 PM CDT Assessment Noted Time PHQ-9 Depression Total Score: 0 09/08/19 19 1:00 PM CDT documented as of this encounter Care Teams Proposal Analyst Relationship Specialty Start Date End Date Justen Gale MD #2 [facility] [address] [place] [address] PCP - General Family Medicine 10/17/17 David Roberts APRN, PARTS TECHNICIAN #2 [place] [address] Nurse Practitioner Advanced Practice Nurse 01/31/22 Annel Rod MD [address] [id number] Consulting Physician Endocrinology 07/01/22 documented as of this encounter
--- OUTSIDE RECORDS SUMMARY | 2024-11-27 | XMS_ITS | Encounter Summary ---
Author Organization [facility] Address [address] [place] [address] Phone Care Team Providers Care Certified Juvenile Probation Officer Name Role Phone Justen Gale MD Primary Care Provider David Roberts APRN, BED MANAGER Unavailable Annel Rod MD Unavailable Reason for Visit * Reason Onset Date Comments Medication Refill 08/06/2020 Encounter Details Date Type Department Care Team (Late st Contact Info) Description 08/06/2020 Refill [facility] - Family [facility] #[address] [facility] [place] [id number] Justen Gale MD #[address] [address] Medication Refill Social History Tobacco Use Types [...] CRP [facility] APN, BED MANAGER 2 months ago Increased urinary frequency [facility] Pili Mueller APN, BED MANAGER 5 months ago Urinary frequency [facility] Pili Mueller APN, BED MANAGER 8 months ago Type 2 diabetes mellitus with diabetic polyneuropathy, with long- term current use of insulin (HCC) [facility] Pili Mueller APN, BED MANAGER 9 months ago [facility] Justen Urbano MD Upcoming Appointments Future Appointments In 6 days Pili Elkins APN, BED MANAGER [facility] - Recent and Past Visits Recent Visits Date Type Provider Dept 07/20/20 Office Visit Pili Elkins APN, BED MANAGER [facility] 06/05/20 Office Visit Pili Elkins APN, NETTA [facility] 02/17/20 Office Visit Pili Elkins APN, NETTA [facility] 12/03/19 Office Visit Pili Elkins APN, NETTA [facility] 11/05/19 Telemedicine Justen Gale MD [facility] 07/25/19 Telemedicine [facility] recent visits within past 460 days with a meds authorizing provider and meeting all other requirements Future Appointments Date Type Provider Dept 08/12/20 Appointment Pili Elkins APN, NETTA [facility] Showing future appointments within next 90 days [...] Description 12/17/2024 3:30 PM CDT Office Visit [facility] Medical [facility] - Endocrinology - [place] [address] [place] [address] Annel Rod MD #[address] [place] [address] 05/29/2025 1:30 PM BRANCH MANAGER TRAINEE Office Visit [facility] - Family Medicine - [place] [address] [place] [address] Justen Gale MD #2 [facility] [address] [place] [address] documented as of this encounter Visit Diagnoses Not on filedocumented in this encounter Additional Health Concerns Infection Onset Date Last Indicated Resolved Time COVID - 19 08/01/2024 08/01/2024 08/01/2024 3:20 PM CDT Assessment Noted Time PHQ-9 Depression Total Score: 0 07/21/19 21 3:00 PM CDT documented as of this encounter Care Teams Certified Juvenile Probation Officer Relationship Specialty Start Date End Date Justen Gale MD #2 [facility] [address] [place] [address] PCP - General Family Medicine 10/17/17 David Roberts APRN, BED MANAGER #2 [place] [address] Nurse Practitioner Advanced Practice Nurse 01/31/22 Annel Rod MD #2 [facility] [address] [place] [address] Consulting Physician Endocrinology 07/01/22 documented as of this encounter
--- OUTSIDE RECORDS SUMMARY | 2024-11-27 | XMS_ITS | Encounter Summary ---
Author Organization [facility] Address [address] [place] [address] Phone Care Team Providers Care Semi Driver Name Role Phone Justen Gale MD Primary Care Provider [phone] David Roberts APRN, ENVIRONMENTAL FIELD PROFESSIONAL Unavailable Annel Rod MD Unavailable Reason for Visit * Reason Comments Medication Refill Encounter Details Date Type Department Care Team (Late st Contact Info) Description 03/13/2021 Refill [facility] [address] [place] [address] Justen Gale MD #[address] [address] Medication Refill Social History Tobacco [...] COVID-19? No / Unsure 03/02/2021 5:05 PM PRINCIPAL SOFTWARE ENGINEER documented as of this encounter Plan of Treatment Upcoming Encounters Date Type Department Care Team (Late st Contact Info) Description 12/17/2024 3:30 PM CDT Office Visit [facility] [place] [address] Annel Rod MD #[address] [address] 05/29/2025 1:30 PM PRINCIPAL SOFTWARE ENGINEER Office Visit [facility] [place] [address] Justen Gale MD #[address] [address] documented as of this encounter Visit Diagnoses Not on filedocumented in this encounter Additional Health Concerns Infection Onset Date Last Indicated Resolved Time COVID - 19 08/01/2024 08/01/2024 08/01/2024 3:20 PM CDT Assessment Noted Time PHQ-9 Depression Total Score: 0 07/21/19 21 3:00 PM CDT documented as of this encounter Care Teams Semi Driver Relationship Specialty Start Date End Date Justen Gale MD #[address] [address] PCP - General Family Medicine 10/17/17 David Roberts APRN, ENVIRONMENTAL FIELD PROFESSIONAL #2 [place] [address] Nurse Practitioner Advanced Practice Nurse 01/31/22 Annel Rod MD #[address] [address] Consulting Physician Endocrinology 07/01/22 documented as of this encounter
--- OUTSIDE RECORDS SUMMARY | 2024-11-27 | XMS_ITS | Encounter Summary ---
Author Organization [facility] Address [address] [place] [address] Phone Care Team Providers Care College Instructor Name Role Phone Justen Gale MD Primary Care Provider David Roberts APRN, FENCE INSTALLER HELPER Unavailable Annel Rod MD Unavailable Reason for Visit * Reason Comments Medication Refill Encounter Details Date Type Department Care Team (Late st Contact Info) Description 02/17/2021 Refill [facility] - [facility] #2 [place] [id number] Justen Gale MD #[address] [address] Medication Refill Social History Tobacco Use Types [...] Mcgee 06/05/20 Office Visit Pili Elkins APRN, FENCE INSTALLER HELPER [facility] Showing recent visits within past 365 days and meeting all other requirements Future Appointments Date Type Provider Dept 03/02/21 Appointment Vince Hermosillo MD [facility] Showing future appointments within next 90 days and meeting all other requirements documented in this encounter Plan of Treatment Upcoming Encounters Date Type Department Care Team (Late st Contact Info) Description 12/17/2024 3:30 PM CDT Office Visit [facility] Endocrinology [facility] #2 [place] [address] Annel Rod MD #2 [facility] [address] [place] [address] 05/29/2025 1:30 PM ENAMELER Office Visit [facility] Family Medicine [facility] #2 [place] [address] Justen Gale MD #2 [facility] [address] [place] [address] documented as of this encounter Visit Diagnoses Not on filedocumented in this encounter Additional Health Concerns Infection Onset Date Last Indicated Resolved Time COVID - 19 08/01/2024 08/01/2024 08/01/2024 3:20 PM CDT Assessment Noted Time PHQ-9 Depression Total Score: 0 07/21/19 3:00 PM CDT documented as of this encounter Care Teams College Instructor Relationship Specialty Start Date End Date Justen Gale MD #2 [facility] [address] [place] [address] PCP - General Family Medicine 10/17/17 David Roberts APRN, FENCE INSTALLER HELPER #2 [place] [address] Nurse Practitioner Advanced Practice Nurse 01/31/22 Annel Rod MD #[address] [address] Consulting Physician Endocrinology 07/01/22 documented as of this encounter
--- OUTSIDE RECORDS SUMMARY | 2024-11-27 00:01 | XMS_ITS | Clinical Summary ---
Author Organization [facility] Address [facility] [place] [address] Care Team Providers Care Reed Man Name Role Phone Meena Bansal MD Unavailable [phone] Justen Gale MD Primary Care Provider [phone] Allergies Active Allergy Reactions Criticality Noted Date [...] reflux disease 09/05/2020 Malignant tumor of breast ([facility]/HCC [facility]) 08/22 Knee pain 09/05/2020 Other [...] 03/18/2018 Assessment & Plan (03/18/2018 2:55 AM STATION INSTALLER AND REPAIRER): Acute, patient reported as epigastric pain however may be atypical presentation. Troponins negative x2. Also in differential is GERD, PUD - Admit to observation -Follow-up troponins -Monitor vitals -N.p.o. at midnight - Stress echo in a.m. - Consider cardiology consult based on results of stress test -Begin Protonix Epigastric pain 03/18/2018 Assessment & Plan (03/18/2018 5:39 AM STATION INSTALLER AND REPAIRER): Acute, non radiating, worsens with lying down, [...] Speech impairment 01/30/2018 CVA (cerebral vascular accident) ([facility] HHS/ C) 01/24/2018 Neck pain on right side 12/01/2017 Anxiety and depression 11/12/2017 Chronic anticoagulation 11/09/2017 Constipation 11/09/2017 Uncontrolled type 2 diabetes mellitus with hyperglycemia, with long-term current use of insulin ([facility]) 11/06/2017 technician terminal and repeater (current) use 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 inhibitors 10/23/2017 Lumbosacral [...] upper- 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 ([facility] HHS/HCC) 10/17/2017 Assessment & Plan (08/31/2018 12:24 AM CDT): S/p masectomy. -continue exemestane Acute deep vein thrombosis ( DVT) of proximal vein of right lower extremity ([facility]) 10/17/2017 Dysuria 10/17/2017 Hyperthyroidism 10/17/2017 Cancer of overlapping sites of left female breast ([facility]) 10/13/2017 Syncope 09/29/2017 High blood pressure 08/22/2017 Overview (09/05/2020): Last Assessment & Plan: On lisinopril Last Assessment & Plan: On lisinopril Assessment & Plan (08/30/2018 9:57 PM CDT): Chronic. Controlled. -continue home medications Assessment & Plan (03/18/2018 2:51 AM STATION INSTALLER AND REPAIRER): Chronic, BPs currently 127/78 - To new home meds Morbid obesity with BMI of 50.0-59.9, adult 04/2017 Sepsis ([facility]) 08/22/2017 Type 2 diabetes mellitus ([facility]) 08/22 Overview (09/05/2020): Last Assessment & Plan: Hold janument. Start on SSI and accucheks Assessment & Plan (08/30/2018 10:01 PM CDT): Chronic. Controlled. -continue home insulin regimen of lantus 50 units q am -lispro 20 units with breakfast and lunch. 22 units with dinner. Assessment & Plan (03/18/2018 2:53 AM STATION INSTALLER AND REPAIRER): Chronic, patient reports medical compliance with 50 units of Lantus daily and 15 units of Humalog before meals. No recent HbA1c - Monitor POC glucose -Corbin home regimen - Consider sliding scale insulin -Follow-up HbA1c Bronchitis 08/20/2017 LUL (obstructive sleep apnea) 08/01/2017 Assessment & Plan (03/18/2018 2:54 AM STATION INSTALLER AND REPAIRER): Chronic, on CPAP at home - Continue home CPAP History of DVT (deep vein thrombosis) 08/01/2017 Assessment & Plan (03/18/2018 2:54 AM STATION INSTALLER AND REPAIRER): Chronic - Continue home Xarelto Chest pressure 08/01/2017 Diet-controlled diabetes mellitus ([facility] HHS/H CC) 08/01/2017 History of pulmonary embolism 08/01/2017 Hyponatremia 08/01/2017 Positive blood culture 08/01/2017 Acute pharyngitis 07/27/2017 Generalized weakness 07/27/2017 Nausea and vomiting 07/26/2017 Overview (09/05/2020): Overview: Overview: Added automatically from request for surgery [id number] Overview: Added automatically from request for surgery [id number] Added automatically from request for surgery [id number] Neuropathy 07/05/2017 History of breast cancer 02/06/2017 Pulmonary embolism ([facility]) 08/09/2016 Overview (09/05/2020): Last Assessment [...] syndrome Assessment & Plan (03/18/2018 2:54 AM STATION INSTALLER AND REPAIRER): Chronic -Continue home ropinirole Pain of lower [...] Recorded In the past 12 months has [employer] gas, oil, or water [employer] threatened to shut off services in [...] Sexual Orientation Straight 03/18/2018 3: 01 AM STATION INSTALLER AND REPAIRER Last Filed Vital Signs Vital Sign Reading [...] 8.0(H) <5.7 % 10/14/2023 5:50 AM CDT [facility] Comment: ADA GUIDELINES 2010 5.7 TO 6.4% INCREASED RISK OF DIABETES > OR = 6.5% CONSISTENT WITH DIABETES ESTIMATED AVG GLUCOSE 183 mg/dL 10/14/2023 5:50 AM CDT [facility] 10/14/2023 3:40 AM CDT us Peggy Bland MD LABORATORY Final Result [facility] [address] [place] [address], [place] [phone] * LIPID PANEL (10/14/2023 3:40 AM CDT) CHOLESTEROL 164 <200 MG/DL 10/14/2023 4:31 AM CDT [facility] TRIGLYCERIDES 114 <150 MG/DL 10/14/2023 4:31 AM CDT [facility] HDL 46 >40.0 MG/DL 10/14/2023 4:31 AM CDT [facility] LDL (CALCULATED) 95 <100 MG/DL 10/14/19 4:31 AM CDT [facility] NON HDL CHOLESTEROL 118 <130 MG/DL 10/13 4:31 AM T [facility] CHOL/HDL RATIO 3.6 0.0 - 4.5 10/14/2023 4:31 AM T [facility] VLDL CALCULATION 23 5 - 55 MG/DL 10/14/2023 4:31 AM CDT [facility] LIPID INTERPRETATION 10/14/2023 4:31 AM T [facility] Comment: NIH CONCENSUS REPORT RECOMMENDATIONS: ADULT CHILD LOW RISK: CHOLESTEROL <200 <170 TRIGLYCERIDE <150 --- HDL >=60 --- LDL <100 <110 BORDERLINE: CHOLESTEROL 200-239 170-199 TRIGLYCERIDE 150-199 --- HDL 40-59 --- LDL 100-159 110-129 HIGH RISK: CHOLESTEROL >=240 >=200 TRIGLYCERIDE >=200 --- HDL <40 --- LDL >=160 >=130 10/14/2023 3:40 AM CDT Peggy Bland MD LABORATORY Final Result [facility] [address] [place] [address], from Last 3 Months or Most Recently Relevant to Health Maintenance Insurance [facility] [place] [id number] [facility] Advance Directives * Full Code (Latest Code [...] 2:42 AM 03/18/2018 4:50 PM Care Teams Reed Man Relationship Specialty Start Date End Date Justen Gale MD [address] [address] PCP - General FAMILY PRACTICE 08/20/17 Meena Bansal MD [address] [facility] [address] [place] [address] [place] [employer] Molder CARDIOVASCULAR DISEASE 04/24/16
--- OUTSIDE RECORDS SUMMARY | 2024-11-27 00:01 | XMS_ITS | Encounter Summary ---
Author Organization [facility] Address [address] [place] [address] Phone Care Team Providers Care Driftman Name Role Phone Justen Gale MD Primary Care Provider David Roberts APRN, MIRROR FRAMER Unavailable Annel Rod MD Unavailable Encounter Details Date Type Department Care Team (Late st Contact Info) Description 06/05/2020 [facility] [address] [place] [address] Pili Elkins APRN, MIRROR FRAMER #[address] [address] Frequency of micturition Social History [...] COVID-19? No / Unsure 2020 11:37 AM NEONATAL SPECIALIST documented as of this encounter Plan of Treatment Upcoming Encounters Date Type Department Care Team (Late st Contact Info) Description 12/17/2024 3:30 PM CDT Office Visit [facility] Medical [facility] - Endocrinology [facility] #2 [place] [address] Annel Rod MD #2 [facility] [address] [place] [address] 05/29/2025 1:30 PM NEONATAL SPECIALIST Office Visit [facility] Family Medicine [facility] #2 [place] [address] Justen Gale MD #2 [facility] [address] [place] [address] documented as of this encounter Procedures Procedure Name Priority Date/Time Associated Diagnosis Comments URINALYSIS REFLEX IF INDICATED BY ABNORMAL RESULTS Routine 06/05/2020 4:45 PM NEONATAL SPECIALIST Frequency of micturition documented in this encounter Results * (ABNORMAL) URINALYSIS REFLEX IF INDICATED BY ABNORMAL RESULTS (06/05/2020 4:45 PM NEONATAL SPECIALIST) SPECIFIC GRAVITY 1.020 1.003 - 1.030 06/05/2020 5:19 PM NEONATAL SPECIALIST [facility] URINE PH 5.0 5.0 - 9.0 06/05/2020 5:19 PM NEONATAL SPECIALIST [facility] WBC ESTERASE Negative Negative 06/05/2020 5:19 PM NEONATAL SPECIALIST [facility] NITRITE Negative Negative 06/05/2020 5:19 PM NEONATAL SPECIALIST [facility] PROTEIN, RANDOM URINE Negative Negative 06/05/2020 5:19 PM NEONATAL SPECIALIST [facility] URINE GLUCOSE, QUAL Negative Negative 06/05/2020 5:19 PM NEONATAL SPECIALIST [facility] URINE KETONES Negative Negative 06/05/2020 5:19 PM NEONATAL SPECIALIST [facility] UROBILINOGEN Normal Normal mg/dL 06/05/2020 5:19 PM NEONATAL SPECIALIST [facility] URINE BILIRUBIN Negative Negative 5:19 PM NEONATAL SPECIALIST [facility] URINE BLOOD 25 /uL(A) Negative leandro/ul 06/05/2020 5:19 PM NEONATAL SPECIALIST [facility] URINALYSIS COLOR Yellow 06/05/19 5:19 PM NEONATAL SPECIALIST [facility] URINALYSIS CLARITY Clear 06/05/2020 5:19 PM NEONATAL SPECIALIST [facility] WBC (Urine) 0-5 Negative, 0-5 /hpf 06/05/2020 5:19 PM NEONATAL SPECIALIST [facility] URINE RBC'S 3-5(A) Negative, 0-2 /hpf 06/05/2020 5:19 PM NEONATAL SPECIALIST [facility] EPITHELIAL CELLS Small amount /lpf 2020 5:19 PM NEONATAL SPECIALIST [facility] BACTERIA, URINE Few(A) Negative /hpf 06/05/2020 5:19 PM [facility] Urine URINE SPECIMEN / Unknown Non-Phlebotomy Collection / Unknown 06/05/2020 4:45 PM NEONATAL SPECIALIST 06/05/2020 5:00 PM NEONATAL SPECIALIST us Pili Elkins CLINICAL RN LIAISON, MIRROR FRAMER URINE ORDERABLES Fin al Result [facility] #1 [place] [address] documented in this encounter Visit Diagnoses Diagnosis Frequency of micturition Urinary frequency documented in this encounter Additional Health Concerns Infection Onset Date Last Indicated Resolved Time COVID - 19 08/01/2024 08/01/2024 08/01/2024 3:20 PM CDT Assessment Noted Time PHQ-9 Depression Total Score: 0 05/17/20 19 1:00 PM CDT documented as of this encounter Care Teams Driftman Relationship Specialty Start Date End Date Justen Gale MD #2 [facility] [address] [place] [address] PCP - General Family Medicine 10/17/17 David Roberts APRN, MIRROR FRAMER #2 [place] [address] Nurse Practitioner Advanced Practice Nurse 01/31/22 Annel Rod MD #2 [facility] [address] [place] [address] Consulting Physician Endocrinology 07/01/22 documented as of this encounter
--- OUTSIDE RECORDS SUMMARY | 2024-11-27 00:01 | XMS_ITS | Clinical Summary ---
Author Organization [facility] Address [address] [place] [address] Care Team Providers Care Predatory Animal Trapper Name Role Phone Justen Gale MD Primary Care Provider [phone] Source Comments [facility],non-[facility] Affiliates and Associated Physician Practices is amultiple site organization consisting of ambulatory clinics and hospital sitesin [place], [place], [place] and [place]. This disclosure is being madepursuant to the Care Everywhere program and may not contain all information available regarding this patient. Last updated 18.[employer]ump Allergies Active Allergy Reactions Criticality Noted Date [...] Gluc Sensor (FreeStyle Eileen 2 Sensor Systm) [facility] APPLY 1 SENSOR AND [...] medical care, and heating? Somewhat hard 05/16/2023 [facility] of Occupat ional Health - Occupational Stress [...] on file Legal Sex Female 6:53 PM [employer] Gender Identity Not on file Sexual [...] this topic Medical Devices Implanted Type Area Construction Cost Estimator Device Identifier Shelf Expiration Date Model / Serial / Lot Lead Nrstm 60cm Penta 3mm Pdl 16 Chnl Implanted:Qt y: 1 on 09/16/2021 by Maxi Gregg MD at [facility] Right: Spine Thoracic Advanced [employer] [id number] / / Description:CAMILO Slnt Dura Duraseal Pg Trilysine Amine 5 Implanted:Qt y: 1 on 09/16/2021 by Maxi rGegg MD at [facility] Right: Spine Thoracic [employer] David [id number] / / Description:CAMILO Proclaim Plus 5 Implanted:Qt y: 1 on 02/16/2023 by Maxi Gregg MD at [facility] Left: Back Cardenas Spine [id number] 11/07/2024 3670 / [id number] / Explanted Type Area Construction Cost Estimator Device Identifier Shelf Expiration Date Model / Serial / Lot Gntr Nrstm 1.95inx2.19in Proclaim Elt Implanted:Qty: 1 on 09/16/2021 by Maxi Gregg MD at [facility] Explanted:Qty: 1 on 10/30/2021 by Maxi Gregg MD at [facility] Right: Spine Thoracic [facility] [...] COMPREHENSIVE METABOLIC PANEL (08/09/2024 1:40 PM CDT) [facility] Glucose 212(H) 70 - 99 mg/dL 08/09/2024 2:09 PM CDT [facility] Sodium 136 136 - 145 mmol/L 08/09/2024 2:09 PM CDT [facility] Potassium 3.9 3.5 - 5.1 mmol/L 08/09/2024 2:09 PM CDT [facility] Chloride 103 98 - 107 mmol/L 08/09/2024 2:09 PM CDT [facility] CO2 24 22 - 29 mmol/L 08/09/2024 2:09 PM CDT [facility] Calcium 9.4 8.4 - 10.4 mg/dL 08/09/2024 2:09 PM T [facility] Anion Gap 9 6 - 16 mmol/L 08/09/2024 2:09 PM CDT [facility] BUN 19 7 - 26 mg/dL 08/09/2024 2:09 PM T [facility] Creatinine 0.82 0.57 - 1.11 mg/dL 08/09/2024 2:09 PM [facility] Alkaline Phosphatase 68 40 - 150 U/L 08/09/2024 2:09 PM T [facility] ALT 22 6 - 57 U/L 08/09/2024 2:09 PM T [facility] AST 23 10 - 48 U/L 08/09/2024 2:09 PM [facility] Protein Total 8.0 6.4 - 8.3 gm/dL 08/09/2024 2:09 PM T [facility] Albumin 3.3(L) 3.4 - 5.0 gm/dL 08/09/2024 2:09 PM T [facility] Bilirubin Total 0.9 0.2 - 1.2 mg/dL 08/09/2024 2:09 PM [facility] eGFR by CKD-EPI 78(L) >=90 mL/min/1.7 3 m2 08/09/2024 2:09 PM [facility] Blood BLOOD SPECIMEN / Unknown Venipuncture / Unknown 08/09/2024 1:40 PM CDT 08/09/2024 1:43 PM T us Josué Bernal PA-C LAB - CHEMISTRY ORDERABLE S Final Result [facility] [address] [place] [address] * HEPATITIS C AB SCREEN RFLX NAAT QUANT (02/21/2023 6:30 PM CDT) Hepatitis C Antibody Non-react hugh Non-reac tive 02/21/2023 7:32 PM CDT [facility] Comment:Hepatitis C Antibody screen indicates [...] MD LAB - CHEMISTRY ORDERABLES nal Result [facility] [address] [place] [address], [facility] [phone] * (ABNORMAL) HEMOGLOBIN A1C (12/25/2022 3:56 AM CDT) Pathologist [facility] Hemoglobin A1c 8.6(H) <=5.6 % 12/25/2022 2:47 PM CDT [facility] Estimated Average Glucose 200 mg/dL 12/25/2022 2:47 PM CDT [facility] Comment: HbA1c Interpretation: Normal : < 5.7% Pre-diabetes: 5.7-6.4% Diabetes: Equal to or greater than 6.5% Test results diagnostic of diabetes should be repeated for confirmation. Treatment target values recommended by ADA and other clinical organizations should be used to evaluate metabolic control in patients. Reference: [place] Diabetes Association, Standards of Care in Diabetes [...] LAB - CHEMISTRY [place] VIZCARRA Final Result [address] [id number] [place] [address], [facility] [phone] from Last 3 Months or Most Recently [...] 3:37 AM 03/23/2023 7:14 PM Care Teams Predatory Animal Trapper Relationship Specialty Start Date End Date Justen Gale MD PCP - General 07/05/21
--- OUTSIDE RECORDS SUMMARY | 2024-11-27 00:01 | XMS_ITS | Encounter Summary ---
Author Organization [facility] Address [address] [place] [address] Phone Care Team Providers Care Tool Setter Name Role Phone Justen Gale MD Primary Care Provider [phone] David Roberts APRN, REFERRAL CLERK Unavailable Annel Rod MD Unavailable Reason for Visit * Reason Onset Date Comments Follow-up 11/14/2024 Encounter Details Date Type Department Care Team (Late st Contact Info) Description 11/14/2024 Telephone [facility] [address] [place] [address] Justen Gale MD #[address] [address] Follow-up Social History Tobacco Use Types Packs/Day Years Used Date Smoking Tobacco: Never Smokeless Tobacco: Never Alcohol Use Standard Drinks/Week Comments No 0 (1 standard drink = 0.6 oz pur e alcohol) [facility] Utilities Answer Date Recorded In the past 12 months has [employer] electric, gas, oil, or water company threatened [...] Total Score - Questions 1-9 0 07/23 [facility] - Occupational Stress Questionnaire Answer [...] in a long-term (including now)? No 08/06/2024 AUDIT-C Answer Date [...] Patient does not drink 11/25/2024 10:08 AM CDT Stephanie Farias MA Q3: How often do you have six or more drinks on one occasion? Never 11/25/2024 10:08 AM CDT Stephanie Farias MA documented as of this encounter Miscellaneous Notes * Telephone Encounter - Fabiola Fall RN - 11/14/2024 12:38 PM CDT S: Provider Call B: Recommendations A: Received call from pharmacist at [facility] who states that it is recommended that the patient be placed on a statin medicaiton due to having diabetes and being between the ages of 40-75. R: Routing to provider to notify. documented in this encounter Plan of Treatment Upcoming Encounters Date Type Department Care Team (Late st Contact Info) Description 12/17/2024 3:30 PM CDT Office Visit [facility] - Endocrinology [facility] [place] #2 [place] [address] Annel Rod MD #[address] [address] 05/29/2025 1:30 PM DECKHAND SHRIMP BOAT Office Visit [facility] Family Medicine [facility] [place] [address]2 [place] [address] Justen Gale MD #[address] [address] documented as of this encounter Visit Diagnoses Not on filedocumented in this encounter Additional Health Concerns Assessment Noted Time PHQ-9 Depression Total Score: 0 08/02/19 25 1:09 PM CDT documented as of this encounter Care Teams Tool Setter Relationship Specialty Start Date End Date Justen Gale MD #[address] [place] [address] PCP - General Family Medicine 10/17/17 David Roberts APRN, REFERRAL CLERK #2 [place] [address] Nurse Practitioner Advanced Practice Nurse 01/31/22 Annel Rod MD #[address] [place] [address] Consulting Physician Endocrinology 07/01/22 documented as of this encounter
--- NOTE | 2024-11-27 00:02 | ECG_ITS ---
Test Date: 2024-11-27 00:02:49 Measurements Intervals [place] Rate: 86 P: 27 CA: 128 QRS: 5 QRSD: 78 T: 31 QT: 348 QTc: 418 Interpretive Statements SINUS RHYTHM VOLTAGE CRITERIA FOR LVH BORDERLINE ECG Compared to ECG 11/15/2024 17:13:35 Ventricular premature complex(es) no longer present Electronically Signed On 11-27-2024 07:00:12 CDT by Jonatan Parra D.O.
--- OUTSIDE RECORDS SUMMARY | 2024-11-27 00:02 | XMS_ITS | Encounter Summary ---
Author Organization [facility] Address [address] [place] [address] Phone Care Team Providers Care Retention Representative Name Role Phone Justen Gale MD Primary Care Provider David Roberts APRN, FINANCIAL PLANNER Unavailable Annel Rod MD Unavailable Reason for Visit * Reason Comments Medication Refill Encounter Details Date Type Department Care Team (Late st Contact Info) Description 08/30/2022 Refill [facility] - Family Medicine [facility] #2 [place] [address] Justen Gale MD #[address] [address] Medication Refill Social History Tobacco Use Types [...] Office Visit Pili Elkins APRN, NETTA [facility] [place] 05/02/22 Office Visit Just[facility] [place] 03/03/22 Office Visit Pili Elkins APRN, NETTA [facility] [place] 01/03/22 Office Visit Dannielle Berg PAC [facility] [place] 12/07/21 Office Visit Pili Elkins APRN, NETTA [facility] [place] 11/09/21 Office Visit Pili Elkins APRN, NETTA [facility] [place] 10/08/21 Office Visit Angelito Alegria APRN, NETTA [facility] [place] 08/30/21 Office Visit Justen Gale MD [facility] [...] Description 12/17/2024 3:30 PM CDT Office Visit [facility] - Endocrinology - [place] [address] [place] [address] Annel Rod MD #[address] [address] 05/29/2025 1:30 PM GLOBAL CMO Office Visit [facility] Family Medicine [facility]3] #2 [place] [address] Justen Gale MD [address] [address] documented as of this encounter Visit Diagnoses Not on filedocumented in this encounter Additional Health Concerns Infection Onset Date Last Indicated Resolved Time COVID - 19 08/01/2024 08/01/2024 08/01/2024 3:20 PM CDT Assessment Noted Time PHQ-9 Depression Total Score: 0 07/21/19 3:00 PM CDT documented as of this encounter Care Teams Retention Representative Relationship Specialty Start Date End Date Justen Gale MD #[address] [address] PCP - General Family Medicine 10/17/17 David Roberts APRN, FINANCIAL PLANNER [address] [place] [address] Nurse Practitioner Advanced Practice Nurse 01/31/22 Annel Rod MD #[address] [address] Consulting Physician Endocrinology 07/01/22 documented as of this encounter
--- OUTSIDE RECORDS SUMMARY | 2024-11-27 00:02 | XMS_ITS | Encounter Summary ---
Author Organization [facility] Address [address] [place] [address] Phone Care Team Providers Care Painting Machine Operator Name Role Phone Justen Gale MD Primary Care Provider David Roberts APRN, TEST DECK SUPERVISOR Unavailable Annel Rod MD Unavailable Reason for Visit * Reason Comments Medication Refill Encounter Details Date Type Department Care Team (Late st Contact Info) Description 03/02/2023 Refill [facility] - Family [facility] #2 [place] [phone] Justen Gale MD #[address] [address] Medication Refill Social History Tobacco [...] Tamika Villarreal RN - 03/02/2023 8:51 AM HANDBAG OPERATOR Medication failed the protocol, provider to [...] Dept 01/17/23 Office Visit Catrina Quiñonez MD [facility] 09/16/22 Office Visit Pili Elkins APRN, CNP [facility] 07/05/22 Office Visit Pili Elkins APRN, NETTA [facility] 05/02/22 Office Visit Justen Gale MD [facility] 03/03/22 Office Visit Pili Elkins APRN, NETTA [facility] Showing recent visits within past 365 days and meeting all other requirements Future Appointments No visits were found meeting these conditions. Showing future appointments within next 90 days and meeting all other requirements BAG OPERATOR documented in this encounter Plan of Treatment Upcoming Encounters Date Type Department Care Team (Late st Contact Info) Description 12/17/2024 3:30 PM CDT [facility] Visit [facility] - Endocrinology - [place] #2 [place] [address] Annel Rod MD #[address] [phone] 05/29/2025 1:30 PM HANDBAG OPERATOR Office Visit [facility] - Family [facility] #[address] [place] [address] Justen Gale MD #[address] [address] documented as of this encounter Visit Diagnoses Not on filedocumented in this encounter Additional Health Concerns Infection Onset Date Last Indicated Resolved Time COVID - 19 08/01/2024 08/01/2024 08/01/2024 3:20 PM CDT Assessment Noted Time PHQ-9 Depression Total Score: 8 01/18/20 23 2:24 PM CDT documented as of this encounter Care Teams Painting Machine Operator Relationship Specialty Start Date End Date Justen Gale MD [address] [address] PCP - General Family Medicine 10/17/17 David Roberts APRN, TEST DECK SUPERVISOR #2 [facility] [place] [address] Nurse Practitioner Advanced Practice Nurse 01/31/22 Annel Rod MD #[address] [address] Consulting Physician Endocrinology 07/01/22 documented as of this encounter
--- OUTSIDE RECORDS SUMMARY | 2024-11-27 00:02 | XMS_ITS | Encounter Summary ---
Author Organization [facility] Address [address] [place] [address] Phone Care Team Providers Care Stand Up Forklift Operator Name Role Phone Justen Gale MD Primary Care Provider [phone] David Roberts APRN, DOGGER Unavailable [phone] Annel Rod MD Unavailable Reason for Visit * Reason Comments Medication Refill Encounter Details Date Type Department Care Team (Late st Contact Info) Description 02/07/2023 Refill [facility] - Family [facility] #2 [place] [address] Catrina Quiñ[place] [address] [place] [address] Medication Refill Social History Tobacco Use Types [...] Dept 01/17/23 Office Visit Catrina Quiñonez MD [facility] [place] 09/16/22 Office Visit Pili Elkins APRN, NETTA [facility] 07/05/22 Office Visit Pili Elkins APRN, NETTA [facility] [place] 05/02/22 Office Visit Justen Gale MD [facility] 03/03/22 Office Visit Pili Elkins APRN, NETTA [facility] Showing recent visits within past 365 days [...] [facility] #[address] [place] [address] Annel Rod MD #[address] [address] 05/29/2025 1:30 PM WEED CONTROL INSPECTOR Office Visit [facility] Family Medicine [facility] #[address] [place] [address] Justen Gale MD #[address] [address] documented as of this encounter Visit Diagnoses Not on filedocumented in this encounter Additional Health Concerns Infection Onset Date Last Indicated Resolved Time COVID - 19 08/01/2024 08/01/2024 08/01/2024 3:20 PM CDT Assessment Noted Time PHQ-9 Depression Total Score: 8 01/18/20 23 2:24 PM CDT documented as of this encounter Care Teams Stand Up Forklift Operator Relationship Specialty Start Date End Date Justen Gale MD #[address] [address] PCP - General Family Medicine 10/17/17 David Roberts APRN, DOGGER #[address] [place] [address] Nurse Practitioner Advanced Practice Nurse 01/31/22 Annel Rod MD #[address] [address] Consulting Physician Endocrinology 07/01/22 documented as of this encounter
--- OUTSIDE RECORDS SUMMARY | 2024-11-27 00:02 | XMS_ITS | Clinical Summary ---
Author Organization [facility] Address [address] [place] [address] Phone Care Team Providers Care Shuttle Bus Driver Name Role Phone Justen Gale MD Primary Care Provider [phone] Allergies Active Allergy Reactions Criticality Noted Date [...] - 6.0 % 09/29/2017 10:28 AM CDT [employer] EST. AVG GLUCOSE, A1C 186 mg/dL 09/29/2017 10:28 AM CDT [employer] [facility] Blood Venipuncture / Unknown 09/28/2017 8:41 PM CDT 09/28/2017 8:[address] [facility] - 09/29/2017 10:28 AM CDT HGB A1C INTERPRETATION NORMAL: <5.7% PRE-DIABETES: 5.7 - 6.4% DIABETES: 6.5% OR GREATER us Francisco Castaneda MD CHEMISTRY ORDERABLES Final Resul t [facility] [employer] [facility]# [id number] [address] [facility] [place] [address] * (ABNORMAL) LIPID PANEL (09/28/2017 8:41 PM CDT) CHOLESTEROL 174 <200 mg/dL 09/30/2017 2:[address] [facility] [employer] TRIGLYCERIDE 109 <150 mg/dL 09/30/2017 2:[address] [facility] [employer] [facility] HDL 45 40 - 59 mg/dL 09/30/2017 2:[address] [facility] [employer] [facility] LDL CALCULATED 107(H) <100 mg/dL 09/30/2017 2:[address] [facility] [employer] [facility] NON-HDL CHOLESTEROL 129 <130 mg/dL 09/30/2017 2:[address] [facility] [employer] [facility] Blood Venipuncture / Unknown 09/28/2017 8:41 PM CDT 09/28/2017 8:46 PM CDT Narrative [facility] - 09/30/2017 2:45 AM CDT TOTAL [...] MD CHEMISTRY ORDERABLES Final Resul t [facility] [id number] 5 [facility] [place] [id number] from Last 3 Months or Most Recently Relevant to Health Maintenance Insurance Advance Directives For more information, please contact: [phone] * Full Code (Latest Code Status on File) Date Activated Date Inactivated Comments 09/29/2017 7:45 AM 09/30/2017 9:14 PM * Full Code Date Activated Date Inactivated Comments 09/29/2017 1:25 AM 09/29/2017 7:45 AM Care Teams Shuttle Bus Driver Relationship Specialty Start Date End Date Justen Gale MD [address] [facility] [address] [place] [address] PCP - General Cardiovascular Disease 09/14/17
--- OUTSIDE RECORDS SUMMARY | 2024-11-27 00:02 | XMS_ITS | Encounter Summary ---
Author Organization [facility] Address [address] [place] [address] Phone Care Team Providers Care Analytic Programmer Name Role Phone Justen Gale MD Primary Care Provider [phone] David Roberts APRN, VISUALIZER Unavailable Annel Rod MD Unavailable Reason for Visit * Reason Comments Medication Refill Encounter Details Date Type Department Care Team (Late st Contact Info) Description 04/13/2023 Refill [facility] - Endocrinology - [place] #2 [place] [address] Annel Rod MD #[address] [address] Medication Refill Social History [...] Jennifer Wang, RN - 04/14/2023 10:00 AM RESEARCH PSYCHOLOGIST Requested Prescriptions Pending Prescriptions Disp Refills ??? Continuous Blood Gluc Sensor (FreeStyle Eileen 2 Sensor) Misc [Pharmacy Med Name: FREESTYLE EILEEN 2 SENSOR] 6 Each 1 Sig: APPLY 1 SENSOR AND WEAR FOR 14 DAYS TO CHECK BLOOD SUGAR Next appt: 05/30/2023 ARCH PSYCHOLOGIST documented in this encounter Plan of Treatment Upcoming Encounters Date Type Department Care Team (Late st Contact Info) Description 12/17/2024 3:30 PM CDT Office Visit [facility] - Endocrinology - [place] #[address] [place] [address] Annel Rod MD #2 [facility] [address] [place] [address] 05/29/2025 1:30 PM RESEARCH PSYCHOLOGIST Office Visit [facility] - Family Medicine [facility] #2 [place] [address] Justen Gale MD #2 [facility] [address] [place] [address] documented as of this encounter Visit Diagnoses Not on filedocumented in this encounter Additional Health Concerns Infection Onset Date Last Indicated Resolved Time COVID - 19 08/01/2024 08/01/2024 08/01/2024 3:20 PM CDT Assessment Noted Time PHQ-9 Depression Total Score: 8 01/18/20 23 2:24 PM CDT documented as of this encounter Care Teams Analytic Programmer Relationship Specialty Start Date End Date Justen Gale MD #2 [facility] [address] [place] [address] PCP - General Family Medicine 10/17/17 David Roberts APRN, NETTA #2 [place] [address] Nurse Practitioner Advanced Practice Nurse 01/31/22 Annel Rod MD #2 [facility] [address] [place] [address] Consulting Physician Endocrinology 07/01/22 documented as of this encounter
--- OUTSIDE RECORDS SUMMARY | 2024-11-27 00:02 | XMS_ITS | Encounter Summary ---
Author Organization [facility] Address [address] [place] [address] Phone Care Team Providers Care Manager Traffic Name Role Phone Justen Gale MD Primary Care Provider David Roberts APRN, MEDICAL TECHNICAL WRITER Unavailable Annel Rod MD Unavailable Reason for Visit * Reason Onset Date Comments Breathing Problem 08/07/2024 Muscle Pain 08/07/2024 Encounter Details Date Type Department Care Team (Late st Contact Info) Description 08/07/2024 Nurse Triage [facility] [address] [place] [address] Justen Gale MD #[address] [address] Breathing Problem; Muscle Pain Social History Tobacco [...] you attend chur ch or denominational services? More than 4 times per year [...] Total Score - Questions 1-9 0 07/23 [facility] [...] She reports this was discussed with the desk director and provider was to be notified in [...] Encouraged caller to bring cell phone and mold puller to contact EMS 911 if symptoms [...] (e.g., disoriented, slurred speech) Protocols used: Breathing [id number] * Telephone Encounter - Neha Tomlinson - 08/07/2024 1:30 PM CDT Symptoms: Altered Mental Status, Body Aches, Breathing Trouble Outcome: Warm transfer to an emergent RN NOW! Reason: Trouble walking The caller accepted this outcome. documented in this encounter Plan of Treatment Upcoming Encounters Date Type Department Care Team (Late st Contact Info) Description 12/17/2024 3:30 PM CDT Office Visit [facility] - Endocrinology - [place] #[address] [place] [address] Annel Rod MD #2 [facility] [address] [place] [address] 05/29/2025 1:30 PM GRAIN PROCESSOR Office Visit [facility] - Family Medicine - [place] #[address] [place] [address] Justen Gale MD #2 [facility] [address] [place] [address] documented as of this encounter Visit Diagnoses Not on filedocumented in this encounter Additional Health Concerns Assessment Noted Time PHQ-9 Depression Total Score: 0 08/02/19 25 1:09 PM CDT documented as of this encounter Care Teams Manager Traffic Relationship Specialty Start Date End Date Justen Gale MD #2 [facility] [address] [place] [address] PCP - General Family Medicine 10/17/17 David Roberts APRN, MEDICAL TECHNICAL WRITER #2 [place] [address] Nurse Practitioner Advanced Practice Nurse 01/31/22 Annel Rod MD #[address] [address] Consulting Physician Endocrinology 07/01/22 documented as of this encounter
--- OUTSIDE RECORDS SUMMARY | 2024-11-27 00:02 | XMS_ITS | Encounter Summary ---
Author Organization [facility] Address [address] [place] [address] Phone Care Team Providers Care Proof Coin Collector Name Role Phone Justen Gale MD Primary Care Provider David Roberts APRN, BAG MACHINE OPERATOR HELPER Unavailable [phone] Annel Rod MD Unavailable Reason for Visit * Reason Comments Medication Refill Encounter Details Date Type Department Care Team (Late st Contact Info) Description 10/24/2022 Refill [facility] - Family Medicine [facility] #[address] [place] [address] Pili Elkins APRN, BAG MACHINE OPERATOR HELPER #[address] [address] Medication Refill Social History Tobacco [...] CDT Office Visit [facility] Endocrinology [facility] #2 [place] [address] Annel Rod MD #2 [facility] [address] [place] [address] 05/29/2025 1:30 PM CORN HUSKER Office Visit [facility] Family Medicine [facility] #[address] [place] [address] Justen Gale MD #2 [facility] [address] [place] [address] documented as of this encounter Visit Diagnoses Diagnosis Essential hypertension Unspecified essential hypertension documented in this encounter Additional Health Concerns Infection Onset Date Last Indicated Resolved Time COVID - 19 08/01/2024 08/01/2024 08/01/2024 3:20 PM CDT Assessment Noted Time PHQ-9 Depression Total Score: 0 09/17/19 23 11:00 AM CDT documented as of this encounter Care Teams Proof Coin Collector Relationship Specialty Start Date End Date Justen Gale MD #[address] [address] PCP - General Family Medicine 10/17/17 David Roberts HEAD STOCK TRANSFER CLERK, BAG MACHINE OPERATOR HELPER #2 [place] [address] Nurse Practitioner Advanced Practice Nurse 01/31/22 Annel Rod MD #[address] [address] Consulting Physician Endocrinology 07/01/22 documented as of this encounter
--- OUTSIDE RECORDS SUMMARY | 2024-11-27 00:02 | XMS_ITS | Encounter Summary ---
Author Organization [facility] Address [address] [place] [address] Phone Care Team Providers Care Heel Scourer Name Role Phone Justen Gale MD Primary Care Provider David Roberts APRN, SWEAT BAND SEPARATOR Unavailable [phone] Annel Rod MD Unavailable Reason for Visit * Reason Onset Date Comments Advice Only 08/19/2024 Follow-up 08/19/2024 Encounter Details Date Type Department Care Team (Late st Contact Info) Description 08/19/2024 Telephone [facility] - [facility] #2 [place] [address] Justen Gale MD #[address] [address] Advice Only; Follow-up Social History Tobacco Use [...] Total Score - Questions 1-9 0 07/23 [facility] - Occupational Stress Questionnaire Answer [...] any time in the past 12 m [facility], were you homeless or [...] visit * Telephone Encounter - Angelito Alegria, RIVET HAMMER MACHINE OPERATOR, SWEAT BAND SEPARATOR - 08/19/2024 9:04 AM CDT Forwarding * Telephone Encounter - Isaura Weiss RN - 08/19/2024 8:37 AM CDT Situation: Strep throat follow up Background: Patient contacting PCP office. Patient was seen in ED on 08/09 and 08/12 in [place] (records in chart). Diagnosed with strep. Assessment: [...] CDT Symptom: Sore Throat Outcome: Transfer to butter fat tester queue Reason: Caller denied all higher acuity questions The caller accepted this outcome. Caller Denied: * Struggling for each breath (severe trouble breathing) * Can't swallow saliva (drooling) documented in this encounter Plan of Treatment Upcoming Encounters Date Type Department Care Team (Late st Contact Info) Description 12/17/2024 3:30 PM CDT Office Visit [facility] - Endocrinology - [place] #2 [place] [address] Annel [place] MD #[address] [phone] 05/29/2025 1:30 PM DENTAL APPLIANCE REPAIRER Office Visit [facility] - Family [facility] #2 [place] [address] Justen Gale MD #[address] [address] documented as of this encounter Visit Diagnoses Not on filedocumented in this encounter Additional Health Concerns Assessment Noted Time PHQ-9 Depression Total Score: 0 08/02/19 25 1:09 PM CDT documented as of this encounter Care Teams Heel Scourer Relationship Specialty Start Date End Date Justen Gale MD #[address] [address] PCP - General Family Medicine 10/17/17 David Roberts APRN, SWEAT BAND SEPARATOR #2 [place] [address] Nurse Practitioner Advanced Practice Nurse 01/31/22 Annel [place] MD #[address] [address] Consulting Physician Endocrinology 07/01/22 documented as of this encounter
--- OUTSIDE RECORDS SUMMARY | 2024-11-27 00:02 | XMS_ITS | Encounter Summary ---
Author Organization [facility] Address [address] [place] [address] Phone Care Team Providers Care Hairspring Adjuster Name Role Phone Justen Gale MD Primary Care Provider David Roberts APRN, PHARMACEUTICAL DEVELOPMENT TECHNICIAN Unavailable Annel Rod MD Unavailable Reason for Visit * Reason Comments Medication Refill Encounter Details Date Type Department Care Team (Late st Contact Info) Description 03/05/2023 Refill [facility] #2 [place] [address] Pili Elkins APRN, PHARMACEUTICAL DEVELOPMENT TECHNICIAN #[address] [address] Medication Refill Social History Tobacco [...] discontinued on 10/19/2022 by Justen Gale MD BEATER documented in this encounter Plan of Treatment Upcoming Encounters Date Type Department Care Team (Late st Contact Info) Description 12/17/2024 3:30 PM CDT Office Visit [facility] - Endocrinology - [place] #2 [place] [address] Annel Rod MD #2 [facility] [address] [place] [address] 05/29/2025 1:30 PM PULP BEATER Office Visit [facility] - Family Medicine - [place] #2 [place] [address] Justen Gale MD #2 [facility] [address] [place] [address] documented as of this encounter Visit Diagnoses Diagnosis Essential hypertension Unspecified essential hypertension documented in this encounter Additional Health Concerns Infection Onset Date Last Indicated Resolved Time COVID - 19 08/01/2024 08/01/2024 08/01/2024 3:20 PM CDT Assessment Noted Time PHQ-9 Depression Total Score: 8 01/18/20 23 2:24 PM CDT documented as of this encounter Care Teams Hairspring Adjuster Relationship Specialty Start Date End Date Justen Gale MD #2 [facility] [address] [place] [address] PCP - General Family Medicine 10/17/17 David Roberts APRN, PHARMACEUTICAL DEVELOPMENT TECHNICIAN #2 [place] [address] Nurse Practitioner Advanced Practice Nurse 01/31/22 Annel Rod MD #[address] [phone] Consulting Physician Endocrinology 07/01/22 documented as of this encounter
--- OUTSIDE RECORDS SUMMARY | 2024-11-27 00:02 | XMS_ITS | Patient Health Record ---
Author Organization [facility] Address [address] [facility] [address] [facility] [address] [place] [address] Care Team Providers Care Fixed Route Bus Operator Name Role Phone Yo DURÁN, Lavonne Primary Care Provider Unavail able Reason For Referral No Information Plan Of Treatment No Information Insurance Providers Payer Name Payer Address Payer Phone Subscriber Number Group Number Insured Name Patient Relationship to Insured Coverage Start Date Coverage End Date [facility] [employer] [address] [address] [place], [place] [id number] Karly Marques Self - patient is the insured
--- OUTSIDE RECORDS SUMMARY | 2024-11-27 00:02 | XMS_ITS | Encounter Summary ---
Author Organization [facility] Address [address] [place] [address] Phone Care Team Providers Care College Admissions Counselor Name Role Phone Lavonne Hathaway MD Primary Care Provider + [phone] Liu Jerez MD Unavailable [phone] Albert Corbin MD Unavailable [phone] Justen Gale MD Primary Care Provider + [phone] Lavonne Hathaway MD Primary Care Provider + [phone] Justen Gale MD Primary Care Provider + [phone] Khris Arthur MD Unavailable + [phone] Ko Melendez MD Unavailable [phone] John Paul Moyer MD Unavailable Annel Rod MD Unavailable Anali MARSHALL MD, Carlos M. Unavailable [phone] Encounter Details Date Type Department Care Team ([facility] Contact Info) Description 05/15/2017 Orders Only [facility] Scanning, Provider Social History Tobacco Use Types Packs/Day Years Used Date Smoking Tobacco: Former Alcohol Use Standard Drinks/Week Comments No 0 (1 standard drink = 0.6 oz pur e alcohol) Comments Unknown Sex and Gender Information Value Date Recorded Sex Assigned at Not on file Legal Sex Female 12:24 AM SCHOOL PLANT CONSULTANT Gender Identity Not on file Sexual [...] COVID: Recovered 02/10/2022 02/10/2022 06/10/2022 3:05 AM SCHOOL PLANT CONSULTANT Exposure, COVID-19 Comment:Added automatically based on COVID19 lab answers indicating exposure risk 02/11/2022 02/11/2022 02/15/2022 9:06 AM C DT COVID: Suspected 05/14/2022 05/14/2022 05/14/2022 10:41 AM SCHOOL PLANT CONSULTANT COVID: Suspected 06/07/2022 06/07/2022 06/07/2022 12:28 PM SCHOOL PLANT CONSULTANT COVID: Suspected 06/21/2022 06/21/2022 06/21/2022 2:12 AM SCHOOL PLANT CONSULTANT COVID: Suspected 10/05/2022 10/05/2022 10/05/2022 7:40 PM CDT COVID: Suspected 01/04/2024 01/04/2024 01/04/2024 10:30 PM CDT COVID: Suspected 02/14/2024 02/14/2024 02/15/2024 12:36 AM CDT COVID: Suspected 07/01/2024 07/01/2024 07/01/2024 2:53 PM CDT COVID: Suspected 07/01/2024 07/01/2024 07/02/2024 3:05 AM CDT documented as of this encounter Care Teams College Admissions Counselor Relationship Specialty Start Date End Date Lavonne Hathaway MD [address] [place] [address] [place] [address] PCP - General 08/16/16 08/17/17 Justen Gale MD [address] [place] [address] [address] PCP - General 08/18/17 08/22/17 Lavonne Hathaway MD [address] [place] [address] [place] [address] PCP - General Family Medicine 08/23/17 10/08/17 Justen Gale MD 2 [facility] [address] [address] PCP - General 10/09/17 Liu Jerez MD [address] [place] [address] [place] [address] Consulting Physician Gastroenterology 07/28/17 [place] [address] [facility] [address] [place] [address] Consulting Physician Pulmonary Disease 08/03/17 Khris Arthur MD [address] [facility] [address] [place] [address] Medical Oncologist/Inventory Assistant Medical Oncology 10/23/17 [place] [address] [facility] [address] [place] [address] Surgeon Orthopedic Surgery 10/23/17 [place] [address] [facility] [address] [place] [address] Consulting Physician Pain Management 10/23/17 [place] [address] [facility] [address] [place] [address] Referring Physician General Surgery 01/26/18 [place] [address] [facility] [address] [place] [address] Consulting Physician Neurology 01/26/18 documented as of this encounter
--- OUTSIDE RECORDS SUMMARY | 2024-11-27 00:02 | XMS_ITS | Encounter Summary ---
Author Organization [facility] Address [address] [place] [address] Phone Care Team Providers Care Washer Engineer Name Role Phone Justen Gale MD Primary Care Provider [phone] David Roberts APRN, PATIENT ATTENDANT Unavailable [phone] Annel Rod MD Unavailable Reason for Visit * Reason Comments Medication Refill Encounter Details Date Type Department Care Team (Late st Contact Info) Description 07/14/2022 Refill [facility] Medicine [facility] #2 [place] [address] Justen Gale MD #[address] [address] Medication Refill Social History Tobacco Use Types [...] Description 12/17/2024 3:30 PM CDT Office Visit [facility] - Endocrinology - [place] #2 [place] [address] Annel Rod MD #2 [facility] [address] [place] [address] 05/29/2025 1:30 PM DIRECTOR OF MATERIALS Office Visit [facility] - Family Medicine [facility] [place] #2 [place] [address] Justen Gale MD #2 [facility] [address] [place] [address] documented as of this encounter Visit Diagnoses Not on filedocumented in this encounter Additional Health Concerns Infection Onset Date Last Indicated Resolved Time COVID - 19 08/01/2024 08/01/2024 08/01/2024 3:20 PM CDT Assessment Noted Time PHQ-9 Depression Total Score: 0 07/21/19 3:00 PM CDT documented as of this encounter Care Teams Washer Engineer Relationship Specialty Start Date End Date Justen Gale MD #2 [facility] [address] [place] [address] PCP - General Family Medicine 10/17/17 David Roberts FINISHER FIBERGLASS BOAT PARTS, PATIENT ATTENDANT #2 [place] [address] Nurse Practitioner Advanced Practice Nurse 01/31/22 Annel Rod MD #2 [facility] [address] [place] [address] Consulting Physician Endocrinology 07/01/22 documented as of this encounter
--- OUTSIDE RECORDS SUMMARY | 2024-11-27 00:02 | XMS_ITS ---
Author Organization [facility] Address [address] [facility] [place] [address] Care Team Providers Care Adjunct Physical Education Instructor Name Role Phone Justen Gale MD Primary Care Provider [phone] Active Problems Problem Noted Date Diagnosed Date [...]
--- OUTSIDE RECORDS SUMMARY | 2024-11-27 00:02 | XMS_ITS | Encounter Summary ---
Author Organization [facility] Address [address] [place] [address] Phone Care Team Providers Care Foot Piece Assembler Name Role Phone Justen Gale MD Primary Care Provider [phone] David Roberts APRN, ASSEMBLER ENGINE Unavailable Annel Rod MD Unavailable Reason for Visit * Reason Comments Medication Refill Encounter Details Date Type Department Care Team (Late st Contact Info) Description 07/06/2023 Refill [facility] - Family [facility] #2 [place] [phone] Justen Gale MD #[address] [address] Medication Refill Social History Tobacco Use Types [...] Dept 06/27/23 Office Visit Justen Gale MD [facility] [place] 01/17/23 Office Visit Catrina Quiñonez MD [facility] [place] Showing recent visits within past 270 [...] Description 12/17/2024 3:30 PM CDT Office Visit [facility] Medical [facility] - Endocrinology - [place] #[address] [place] [address] Annel Rod MD #[address] [facility] [address] [place] [address] 05/29/2025 1:30 PM RAILROAD BRAKE OPERATOR Office Visit [facility] Family [facility] #[address] [place] [address] Justen Gale MD #[address] [facility] [facility] [address] [place] [address] documented as of this encounter Visit Diagnoses Not on filedocumented in this encounter Additional Health Concerns Infection Onset Date Last Indicated Resolved Time COVID - 19 08/01/2024 08/01/2024 08/01/2024 3:20 PM CDT Assessment Noted Time PHQ-9 Depression Total Score: 8 01/18/20 2:24 PM CDT documented as of this encounter Care Teams Foot Piece Assembler Relationship Specialty Start Date End Date Justne Gale MD #[address] [address] PCP - General Family Medicine 10/17/17 David Roberts, MEDICAL SECRETARY, ASSEMBLER ENGINE #2 [place] [address] Nurse Practitioner Advanced Practice Nurse 01/31/22 Annel Rod MD #[address] [address] Consulting Physician Endocrinology 07/01/22 documented as of this encounter
--- OUTSIDE RECORDS SUMMARY | 2024-11-27 00:02 | XMS_ITS | Encounter Summary ---
Author Organization [facility] Address [address] [place] [address] Phone Care Team Providers Care Maintenance Mechanic Elevators Name Role Phone Justen Gale MD Primary Care Provider David Roberts APRN, MULTIPLE CUT OFF SAW OPERATOR Unavailable Annel Rod MD Unavailable Reason for Visit * Reason Comments Medication Refill Encounter Details Date Type Department Care Team (Late st Contact Info) Description 02/07/2023 Refill [facility] Medicine [facility] #2 [place] [address] Pili Elkins APRN, MULTIPLE CUT OFF SAW OPERATOR #[address] [address] Medication Refill Social History [...] Description 12/17/2024 3:30 PM CDT Office Visit [facility] Medical Group - Endocrinology - [place] #2 [place] [address] Annel Rod MD #2 [facility] [address] [place] [address] 05/29/2025 1:30 PM CRACKING MACHINE OPERATOR Office Visit [facility] - Family Medicine [facility] #2 [place] [address] Justen Gale MD #2 [facility] [address] [place] [address] documented as of this encounter Visit Diagnoses Diagnosis Essential hypertension Unspecified essential hypertension documented in this encounter Additional Health Concerns Infection Onset Date Last Indicated Resolved Time COVID - 19 08/01/2024 08/01/2024 08/01/2024 3:20 PM CDT Assessment Noted Time PHQ-9 Depression Total Score: 8 01/18/20 2:24 PM CDT documented as of this encounter Care Teams Maintenance Mechanic Elevators Relationship Specialty Start Date End Date Justen Gale MD #2 [facility] [address] [place] [address] PCP - General Family Medicine 10/17/17 David Roberts, PAINTER SKI EDGE, MULTIPLE CUT OFF SAW OPERATOR #2 [place] [address] Nurse Practitioner Advanced Practice Nurse 01/31/22 Annel Rod MD #2 [facility] [address] [place] [address] Consulting Physician Endocrinology 07/01/22 documented as of this encounter
--- OUTSIDE RECORDS SUMMARY | 2024-11-27 00:02 | XMS_ITS | Encounter Summary ---
Author Organization [facility] Address [address] [place] [address] Phone Care Team Providers Care Carbonating Stone Cleaner Name Role Phone Liu Jerez MD Unavailable [phone] Albert Corbin MD Unavailable Justen Gale MD Primary Care Provider [phone] Khris Arthur MD Unavailable [phone] Ko Melendez MD Unavailable John Paul Moyer MD Unavailable Annel Rod MD Unavailable Anali MARSHALL MD, Carlos M. 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 Gender Identity Not on file Sexual [...] COVID: Recovered 02/10/2022 02/10/2022 06/10/2022 3:05 AM HIGH SCHOOL PHYSICAL EDUCATION TEACHER Exposure, COVID-19 Comment:Added automatically based on COVID19 lab answers indicating exposure risk 02/11/2022 02/11/2022 02/15/2022 9:06 AM C DT COVID: Suspected 05/14/2022 05/14/2022 05/14/2022 10:41 AM HIGH SCHOOL PHYSICAL EDUCATION TEACHER COVID: Suspected 06/07/2022 06/07/2022 06/07/2022 12:28 PM HIGH SCHOOL PHYSICAL EDUCATION TEACHER COVID: Suspected 06/21/2022 06/21/2022 06/21/2022 2:12 AM HIGH SCHOOL PHYSICAL EDUCATION TEACHER COVID: Suspected 10/05/2022 10/05/2022 10/05/2022 7:40 PM CDT COVID: Suspected 01/04/2024 01/04/2024 01/04/2024 10:30 PM CDT COVID: Suspected 02/14/2024 02/14/2024 02/15/2024 12:36 AM CDT COVID: Suspected 07/01/2024 07/01/2024 07/01/2024 2:53 PM CDT COVID: Suspected 07/01/2024 07/01/2024 07/02/2024 3:05 AM CDT documented as of this encounter Care Teams Carbonating Stone Cleaner Relationship Specialty Start Date End Date Justen Gale MD 2 [facility] [address] [place] [address] PCP - General 10/09/17 Liu Jerez MD Consulting Physician Gastroenterology 07/28/17 [place] [address] [facility] [address] [place] [address] Consulting Physician Pulmonary Disease 08/03/17 [place] [address] [place] [address] [address] [place] [address] Medical Oncologist/Ballistic Technician Medical Oncology 10/23/17 [place] [address] [address] Surgeon Orthopedic Surgery 10/23/17 [place] [address] [facility] [address] [place] [address] Consulting Physician Pain Management 10/23/17 [place] [address] [address] Referring Physician General Surgery 01/26/18 [place] [address] [facility] [address] [place] [address] Consulting Physician Neurology 01/26/18 documented as of this encounter
--- OUTSIDE RECORDS SUMMARY | 2024-11-27 00:02 | XMS_ITS | Encounter Summary ---
Author Organization [facility] Address [address] [place] [address] Phone Care Team Providers Care Cargo Checker Name Role Phone Justen Gale MD Primary Care Provider David Roberts APRN, SYSTEMS QA ANALYST Unavailable [phone] Annel Rod MD Unavailable Reason for Visit * Reason Comments Medication Refill Encounter Details Date Type Department Care Team (Late st Contact Info) Description 07/12/2022 Refill [facility] Family Medicine [facility] #2 [place] [address] Justen Gale MD #[address] [address] Medication Refill Social History Tobacco Use Types [...] 07/05/22 Office Visit Pili Elkins APRN, NETTA [facility] [place] 05/02/22 Office Visit Justen Gale MD [facility] [place] 03/03/22 Office Visit Pili Elkins APRN, SYSTEMS QA ANALYST [facility] [place] 01/03/22 Office Visit Dannielle Berg PAC [facility] [place] 12/07/21 Office Visit Pili Elkins APRN, NETTA [facility] [place] 11/09/21 Office Visit Pili Elkins APRN, NETTA [facility] [place] 10/08/21 Office Visit Angelito Alegria APRN, NETTA [facility] [place] 08/30/21 Office Visit [facility] Show[facility] recent visits within past 365 days and meeting all other requirements Future Appointments No visits were found meeting these conditions. Showing future appointments within next 90 days and meeting all other requirements documented in this encounter Plan of Treatment Upcoming Encounters Date Type Department Care Team (Late st Contact Info) Description 12/17/2024 3:30 PM CDT Office Visit [facility] Endocrinology [facility] #2 [place] [address] Annel Rod MD #[address] [address] 05/29/2025 1:30 PM CREATIVE WRITING TEACHER Office Visit [facility] Family Medicine [facility] #2 [place] [address] Justen Gale MD #[address] [address] documented as of this encounter Visit Diagnoses Not on filedocumented in this encounter Additional Health Concerns Infection Onset Date Last Indicated Resolved Time COVID - 19 08/01/2024 08/01/2024 08/01/2024 3:20 PM CDT Assessment Noted Time PHQ-9 Depression Total Score: 0 07/21/19 21 3:00 PM CDT documented as of this encounter Care Teams Cargo Checker Relationship Specialty Start Date End Date Justen Gale MD #[address] [address] PCP - General Family Medicine 10/17/17 David Roberts, TRAFFIC II MANAGER, SYSTEMS QA ANALYST #2 [place] [address] Nurse Practitioner Advanced Practice Nurse 01/31/22 Annel Rod MD #[address] [address] Consulting Physician Endocrinology 07/01/22 documented as of this encounter
--- OUTSIDE RECORDS SUMMARY | 2024-11-27 00:03 | XMS_ITS | Encounter Summary ---
Author Organization [facility] Address [address] [place] [address] Phone Care Team Providers Care Bus Analyst Name Role Phone Justen Gale MD Primary Care Provider [phone] David Roberts APRN, BUSHEL WORKER Unavailable [phone] Annel Rod MD Unavailable Reason for Visit * Reason Onset Date Comments Pain 09/23/2024 Encounter Details Date Type Department Care Team (Late st Contact Info) Description 09/23/2024 Telephone [facility] [address] [place] [address] Justen Gale MD #[address] [address] Pain Social History Tobacco Use Types Packs/Day Years Used Date Smoking Tobacco: Never Smokeless Tobacco: Never Alcohol Use Standard Drinks/Week Comments No 0 (1 standard drink = 0.6 oz pur e alcohol) [facility] Utilities Answer Date Recorded In the past 12 months has [employer] electric, gas, oil, or water company threatened [...] - patient has RA Outcome: Transfer to adjunct english instructor queue Reason: Caller denied all higher acuity questions The caller accepted this outcome. Caller Denied: * Chest pain * Headache * Eye pain * Abdominal pain * Genital pain documented in this encounter Plan of Treatment Upcoming Encounters Date Type Department Care Team (Late st Contact Info) Description 12/17/2024 3:30 PM CDT Office Visit [facility] Medical Group - Endocrinology - [place] #2 [place] [address] Annel Rod MD #2 [facility] [address] [place] [address] 05/29/2025 1:30 PM ACOUSTICAL TILE PATTERNMAKER Office Visit [facility] Medical [facility] - Family Medicine - [place] #2 [place] [address] Justen Gale MD #2 [facility] [address] [place] [address] documented as of this encounter Visit Diagnoses Not on filedocumented in this encounter Additional Health Concerns Assessment Noted Time PHQ-9 Depression Total Score: 0 08/02/19 25 1:09 PM CDT documented as of this encounter Care Teams Bus Analyst Relationship Specialty Start Date End Date Justen Gale MD #2 [facility] [address] [place] [address] PCP - General Family Medicine 10/17/17 David Roberts APRN, NETTA #2 [place] [address] Nurse Practitioner Advanced Practice Nurse 01/31/22 Annel Rod MD #[address] [address] Consulting Physician Endocrinology 07/01/22 documented as of this encounter
--- OUTSIDE RECORDS SUMMARY | 2024-11-27 00:03 | XMS_ITS | Encounter Summary ---
Author Organization [facility] Address [address] [place] [address] Phone Care Team Providers Care Database Administration Project Manager Name Role Phone Justen Gale MD Primary Care Provider David Roberts APRN, SUPERVISOR HOT DIP TINNING Unavailable Annel Rod MD Unavailable Reason for Visit * Reason Comments Medication Refill Encounter Details Date Type Department Care Team (Late st Contact Info) Description 09/30/2023 Refill [facility] - [place] #2 [place] [address] Annel Rod MD #[address] [address] Medication Refill Social History Tobacco [...] AM CDT Medication(s) refilled and signed per [facility] Chronic Medication Refill Standing Order for Pediatric and Adult Patients. documented in this encounter Plan of Treatment Upcoming Encounters Date Type Department Care Team (Late st Contact Info) Description 12/17/2024 3:30 PM CDT Office Visit [facility] Medical Group - Endocrinology - [place] #2 [place] [address] Annel Rod MD #[address] [address] 05/29/2025 1:30 PM CHECKROOM ATTENDANT Office Visit [facility] Medical Group - Family Medicine - [place] #2 [place] [address] Justen Gale MD #2 [facility] [address] [place] [address] documented as of this encounter Visit Diagnoses Not on filedocumented in this encounter Additional Health Concerns Infection Onset Date Last Indicated Resolved Time COVID - 19 08/01/2024 08/01/2024 08/01/2024 3:20 PM CDT Assessment Noted Time PHQ-9 Depression Total Score: 8 01/18/20 23 2:24 PM CDT documented as of this encounter Care Teams Database Administration Project Manager Relationship Specialty Start Date End Date Justen Gale MD #[address] [address] PCP - General Family Medicine 10/17/17 David Roberts APRN, SUPERVISOR HOT DIP TINNING #[address] [place] [address] Nurse Practitioner Advanced Practice Nurse 01/31/22 Annel Rod MD #[address] [place] [address] [address] Consulting Physician Endocrinology 07/01/22 documented as of this encounter
--- OUTSIDE RECORDS SUMMARY | 2024-11-27 00:03 | XMS_ITS | Encounter Summary ---
Author Organization [facility] Address [address] [place] [address] Phone Care Team Providers Care Diesel Tractor Engine Mechanic Name Role Phone Justne Gale MD Primary Care Provider David Roberts APRN, MOLECULAR MODELER Unavailable Annel Rod MD Unavailable Reason for Visit * Reason Onset Date Comments Advice Only 11/21/2023 Encounter Details Date Type Department Care Team (Late st Contact Info) Description 11/21/2023 Telephone [facility] [address] [place] [address] Justen Gale MD #[address] [address] Advice Only Social History Tobacco Use Types [...] 11/21/2023 3:17 PM CDT RFC: Alejandra from [facility] is calling to state that patient is listed as being a diabteic but is not on a statin. Please call Alejandra (relationship to patient n/a) back regarding above referenced patient. Patient's Provider is Justen Gale MD . documented in this encounter Plan of Treatment Upcoming Encounters Date Type Department Care Team (Late st Contact Info) Description 12/17/2024 3:30 PM CDT Office Visit [facility] - Endocrinology - [place] [address] [place] [address] Annel Rod MD #2 [facility] [address] [place] [address] 05/29/2025 1:30 PM COLD SAW OPERATOR Office Visit [facility] - Family Medicine - [place] [address] [place] [address] Justen Gale MD #2 [facility] [address] [place] [address] documented as of this encounter Visit Diagnoses Not on filedocumented in this encounter Additional Health Concerns Infection Onset Date Last Indicated Resolved Time COVID - 19 08/01/2024 08/01/2024 08/01/2024 3:20 PM CDT Assessment Noted Time PHQ-9 Depression Total Score: 8 01/18/20 23 2:24 PM CDT documented as of this encounter Care Teams Diesel Tractor Engine Mechanic Relationship Specialty Start Date End Date Justen Gale MD #2 [facility] [address] [place] [address] PCP - General Family Medicine 10/17/17 David Roberts APRN, NETTA [address] [place] [address] Nurse Practitioner Advanced Practice Nurse 01/31/22 Annel Rod MD #2 [facility] [address] [place] [address] Consulting Physician Endocrinology 07/01/22 documented as of this encounter
--- OUTSIDE RECORDS SUMMARY | 2024-11-27 00:03 | XMS_ITS | Encounter Summary ---
Author Organization [facility] Address [address] [place] [address] Phone Care Team Providers Care Breast Worker Name Role Phone Justen Gale MD Primary Care Provider [phone] David Roberts APRN, HEAT TREATER HEAD Unavailable Annel Rod MD Unavailable Reason for Visit * Reason Onset Date Comments Sore Throat 09/02/2024 Encounter Details Date Type Department Care Team (Late st Contact Info) Description 09/02/2024 Nurse Triage [facility] Central Call Center [address] [place] [address] Justen Gale MD #[address] [address] Sore Throat Social History Tobacco Use Types [...] Total Score - Questions 1-9 0 07/23 [facility] [...] any time in the past 12 m [facility], were you homeless or living [...] Pharmacy, medications, and allergies reviewed. Discussed utilizing [facility] to: discuss if they would prefer a [facility] [employer] message or phone call response - See [...] Ulcers - Caller Reports Outcome: Transfer to computer installer queue Reason: Caller denied all higher acuity questions The caller accepted this outcome. Caller Denied: * Struggling for each breath (severe trouble breathing) * Can't swallow saliva (drooling) documented in this encounter Plan of Treatment Upcoming Encounters Date Type Department Care Team (Late st Contact Info) Description 12/17/2024 3:30 PM CDT Office Visit [facility] Endocrinology - [place] [address] [facility] [place] [address] Annel Rod MD #[address] [place] [address] 05/29/2025 1:30 PM FIRE SAFETY MANAGER Office Visit [facility] Family Medicine [facility] [address] [facility] [place] [address] Justen Gale MD [address] [address] documented as of this encounter Visit Diagnoses Not on filedocumented in this encounter Additional Health Concerns Assessment Noted Time PHQ-9 Depression Total Score: 0 08/02/19 25 1:09 PM CDT documented as of this encounter Care Teams Breast Worker Relationship Specialty Start Date End Date Justen Gale MD #[address] [address] PCP - General Family Medicine 10/17/17 David Roberts APRN, HEAT TREATER HEAD [address] [place] [address] Nurse Practitioner Advanced Practice Nurse 01/31/22 Annel Rod MD #[address] [address] Consulting Physician Endocrinology 07/01/22 documented as of this encounter
--- OUTSIDE RECORDS SUMMARY | 2024-11-27 00:03 | XMS_ITS | Encounter Summary ---
Author Organization [facility] Address [address] [place] [address] Phone Care Team Providers Care Dough Machine Operator Name Role Phone Justen Gale MD Primary Care Provider [phone] David Roberts APRN, PHOTO INTERN Unavailable [phone] Annel Rod MD Unavailable Reason for Visit * Reason Comments Medication Refill Encounter Details Date Type Department Care Team (Late st Contact Info) Description 08/07/2023 Refill [facility] - End[facility]ology - [place] [address] [place] [address] Annel Rod MD #[address] [address] Medication Refill Social History Tobacco [...] AM CDT Medication(s) refilled and signed per [facility] Chronic Medication Refill Standing Order for Pediatric and Adult Patients. documented in this encounter Plan of Treatment Upcoming Encounters Date Type Department Care Team (Late st Contact Info) Description 12/17/2024 3:30 PM CDT Office Visit [facility] - Endocrinology - [place] [address] [place] [address] Annel Rod MD #[address] [address] 05/29/2025 1:30 PM MED ASST Office Visit [facility] - Family Medicine - [place] [address] [place] [address] Justen Gale MD #2 [facility] [address] [place] [address] documented as of this encounter Visit Diagnoses Not on filedocumented in this encounter Additional Health Concerns Infection Onset Date Last Indicated Resolved Time COVID - 19 08/01/2024 08/01/2024 08/01/2024 3:20 PM CDT Assessment Noted Time PHQ-9 Depression Total Score: 8 01/18/20 23 2:24 PM CDT documented as of this encounter Care Teams Dough Machine Operator Relationship Specialty Start Date End Date Justen Gale MD #[address] [address] PCP - General Family Medicine 10/17/17 David Roberts APRN, PHOTO INTERN #[address] [place] [address] Nurse Practitioner Advanced Practice Nurse 01/31/22 Annel Rod MD #[address] [address] Consulting Physician Endocrinology 07/01/22 documented as of this encounter
--- OUTSIDE RECORDS SUMMARY | 2024-11-27 00:03 | XMS_ITS | Clinical Summary ---
Author Organization [facility] Address [address] [place] [address] Phone Care Team Providers Care Sheet Metal Worker Name Role Phone Justen Gale MD Primary Care Provider [phone] David Roberts APRN, SOFT BOARDER Unavailable [phone] Annel Rod MD Unavailable Allergies Active Allergy [...] long-term current use of insulin ([facility]) Diagnosis: Diabetes Type 2 Blood testing frequency: 4 times a day 1 Each 11/22/19 18 Active Glucose Blood (ONE TOUCH ULTRA TEST) Strip Test four times daily. 400 Strip 3 02/11/20 20 Active Misc. Devices MiscIndication s:LUL (obstructive sleep apnea) Supply and instructions: 1 Each 09/10/19 21 Active OneTouch Delica Lancets 33G [facility] 1 Lancet by Does not apply route 4 times daily. 400 Lancet 3 03/09/20 21 Active naloxone HCl (Narcan) 4 MG/0.1ML Liquid 05/13/19 22 Active diphenhydrAMIN E (BENADRYL) 25 MG Capsule Take 25 mg by mouth every 6 hours as needed. Active Continuous Blood Gluc Sensor (FreeStyle Eileen [...] Tablet by mouth. 12/28/19 24 Active Multiple Vitamins-Assembler Steam [employer] Turbine als (WOMENS MULTI PO) Take by mouth. [...] dependent 6 Each 1 04/25/19 25 Active HumaLOG KwikPen 100 UNIT/ML Solution Pen-injector INJECT 28 UNITS UNDER SKIN BEFORE EACH MEAL.; ISF OF 1:15 OF IF>150MG/DL; MAX DAILY DOSE OF 100 UNITS 90 mL 08/06/19 25 Active insulin glargine (Lantus SoloStar) 100 UNIT/ML Solution Pen-injector 50 Units by Subcutaneous route every morning. 45 mL 1 10/18/19 25 Active predniSONE (DELTASONE) 5 MG TabletIndicati ons:Polymyalgi a rheumatica (HCC) Take 1.5 Tablets by mouth daily. 45 Tablet 11/16/19 25 Active ondansetron (Zofran) 4 MG Tablet Take 1 Tablet by mouth every 8 hours as needed for Nausea - 1st line. 15 Tablet 11/22/19 25 Active Continuous Glucose Sensor (FreeStyle Eileen 2 Sensor) Misc 1 Each by Does not apply route every 14 days. 6 Each 1 11/22/19 25 Active Insulin Pen Needle (BD Pen Needle Short Ultrafine) 31G X 8 MM Misc USE 6 TIMES A DAY DIRECTED 300 Pen Needle 3 11/22/19 25 Active furosemide (LASIX) 20 MG Tablet Take 20 mg by mouth daily. 11/20/19 25 Active amoxicillin-cl avulanate (AUGMENTIN) 875-125 MG Tablet Take 1 Tablet by mouth 2 times daily. 11/20/19 25 Active pantoprazole (PROTONIX) 40 MG Tablet Delayed Response Take 40 mg by mouth daily. Active oxybutynin (DITROPAN-XL) 10 MG TABLET SR 24 HRIndications: OAB (overactive bladder) Take 1 Tablet by mouth daily. 30 Tablet 1 11/26/19 25 Active B-D ULTRAFINE III SHORT PEN 31G X 8 MM Misc USE 6 TIMES DAILY DIRECTED 300 Pen Needle 1 06/16/19 23 2024 Discontinued oxybutynin (DITROPAN XL) 15 MG TABLET SR 24 HR Take 10 mg by mouth daily. 06/29/19 23 2024 Discontinued(R eorder) HumaLOG KwikPen 100 UNIT/ML Solution Pen-injector ADMINSTER 22 UNITS UNDER THE SKIN BEFORE EACH MEAL, ISF OF 1:15 OF IF> 150MG/DL MAX DAILY DOSE OF 100 UNITS 30 mL 1 03/07/20 23 2024 Discontinued(M ed List Clean Up) ondansetron (Zofran) 4 MG Tablet Take 1 Tablet by mouth every 8 hours as needed for Nausea - 1st line. 15 Tablet 04/25/19 25 2024 Discontinued(R eorder) Continuous Glucose Sensor (FreeStyle Eileen 2 Sensor) Misc 1 Each by Does not apply route every 14 days. 6 Each 1 08/03/19 25 2024 Discontinued(R eorder) montelukast (SINGULAIR) 10 MG TabletIndicati ons:Seasonal Allergic Rhinitis Take 1 Tablet by mouth every evening. Indications: Hayfever 90 Tablet 09/07/192024 Discontinued(M ed List Clean Up) clotrimazole (MYCELEX) 10 MG TrocheIndicati ons:Oropharyng eal Candidiasis Take 1 Rozina by mouth 5 times daily. Indications: Candidiasis Fungal Infection of the Oropharynx 50 Rozina 09/07/19 25 2024 Discontinued(M ed List Clean Up) predniSONE (DELTASONE) 10 MG TabletIndicati ons:Polymyalgi a Rheumatica Take 1 Tablet by mouth daily. Do not stop taking until cleared by PCP office or locum tenens hospitalist. Will need to taper off slowly. Indications: Polymyalgia Rheumatica 30 Tablet 10/29/19 25 2024 Discontinued(D ose adjustment) Insulin Pen Needle (BD Pen Needle Short Ultrafine) 31G X 8 MM Misc USE 6 TIMES A DAY DIRECTED 300 Pen Needle 3 11/06/19 25 2024 Discontinued(R eorder) ondansetron (Zofran) 4 MG Tablet Take 1 Tablet by mouth every 8 hours as needed for Nausea - 1st line. 15 Tablet 11/08/19 25 2024 Discontinued(R eorder) Active Problems Problem Noted Date Diagnosed Date Acute diastolic congestive heart failure 025 Polymyalgia rheumatica 08/07/2024 Class 3 severe obesity [...] Morbid obesity with BMI of 50.0-59.9, adult 05/0 04/2017 Chest pressure 08/01/2017 Diet-controlled diabetes mellitus 08/01/2017 History of pulmonary embolism 08/01/2017 Acute cystitis without hematuria 07/27/2017 Dyspnea 07/27/2017 Generalized weakness 07/27/2017 Nausea and vomiting 07/26/2017 Overview (11/09/2017): Overview: Added automatically from request for surgery [id number] Lymphedema of left upper extremity 08/09/2016 Pulmonary embolism 08/09/2016 Overview (11/09/2017): Last Assessment & Plan: On Rivaroxaban Arthralgia of ankle 01/26/2015 Resolved Problems Problem Noted Date Diagnosed Date Resolved Date Cellulitis of breast 11/11/2014 025 Encounters Date Type Department Care Team Description 11/25/2024 10:00 AM CDT Office Visit [facility] [address] [place] [address] Pili Elkins APRN, NETTA Acute diastolic congestive heart failure (HCC) (Primary Dx); Type 2 diabetes mellitus with diabetic polyneuropathy, with long-term current use of insulin (HCC); OAB (overactive bladder); Polymyalgia rheumatica (HCC) Discharge Disposition: Discharged to home or Selfcare 11/25/2024 Travel 11/21/2024 Nurse Triage [facility] Call [facility] [address] [place] [phone] Justen Gale MD Advice Only; Urinary Frequency 11/21/2024 MyChart RX Renewal [facility] - Endocrinology - [place] [address] [place] [address] Annel Rdo MD Medication Renewal Reviewed 11/21/2024 MyChart RX Renewal [facility] [address] [place] [address] Justen Gale MD Medication Renewal Declined 11/21/2024 MyChart RX Renewal [facility] [address] [place] [address] Pili Elkins APRN, CNP Medication Renewal Reviewed 11/20/2024 [facility] [address] [place] [address] [phone] Justen Gale MD Shortness of Breath 11/20/2024 Telephone [facility] [address] [place] [address] [phone] Justen Gale MD Post-Hospital Follow-up ([facility]) 11/14/2024 [facility] [address] [place] [address] [phone] Justen Gale MD Follow-up 11/14/20[facility] [place] [phone] Justen Gale MD 11/07/2024 Nurse [facility] [address] [place] [address] [phone] Justen Gale MD Advice Only; Fatigue; Shortness of Breath 11/06/2024 [facility] [place] [address] Justen Gale MD Medication Renewal Declined 11/05/2024 [facility] [place] [address] Justen Gale MD Medication Refill 10/28/2024 [facility] [place] [address] Justen Gale MD Medication Renewal Reviewed 10/17/20[facility] [address] [place] [phone] Annel Rod MD Medication Refill 10/08/2024 Nurse [facility] [address] [place] [phone] Justen Gale MD Abdominal Pain 09/30/2024 MyChart RX Renewal [facility] [address] [place] [address] Dulce Wolff APRN, NETTA Medication Renewal Reviewed 09/29/2024 Nurse Triage [facility] [address] [place] [phone] Justen Gale MD Urinary Tract Infection 09/23/2024 Nurse Triage [facility] [address] [place] [phone] Justen Gale MD Breathing Problem; Pain 09/23/2024 Telephone [facility] [address] [place] [phone] Justen Gale MD Pain 09/11/2024 Telephone [facility] Call [address] [phone] Justen Gale MD Follow-up 09/06/2024 1:15 PM CDT Office Visit [facility] [address] [place] [address] Dulce Wolff APRN, NETTA Enlarged tonsils (Primary Dx); Polymyalgia rheumatica (HCC); Oral candidiasis; Edema, unspecified type Discharge Disposition: Discharged to home or Selfcare 09/06/2024 Travel 09/03/2024 Telephone [facility] [address] [place] [address] Justen Gale MD Follow-up 09/02/2024 Nurse Triage [facility] [address] [place] [address] [phone] Justen Gale MD Sore Throat from Last 3 Months Immunizations Immunization Administration [...] Recorded In the past 12 months has [employer], gas, oil, or water [employer] threatened to shut off services in your [...] you attend chur ch or adventism services? More than 4 times per year [...] Total Score - Questions 1-9 0 07/23 [place] of Occupat ional [facility] - Occupational Stress Questionnaire Answer [...] health care facility (including now)? No 08/06/2024 AUDIT-C Answer Date [...] 1:29 PM CDT Height 152.4 cm (5') 11/25/2024 9:59 AM CDT Body Mass Index 55.91 09/06/2024 1:29 PM CDT Plan of Treatment Upcoming Encounters Date Type Department Care Team (Late st Contact Info) Description 12/17/2024 3:30 PM CDT Office Visit [facility] Medical [facility] - Endocrinology - [place] [address] [place] [address] Annel Rod MD [address]2 [facility] [address] [place] [address] 05/29/2025 1:30 PM ASSEMBLY WORKER Office Visit [facility] [address] [place] [address] Justen Gale MD [address]2 [facility] [address] [place] [address] Health Maintenance Due Date Last Done Comments [...] 10/02/2023, Additional history exists Influenza Immunization (#1) 12/23/202412/24, 01/17/2023, 01/03/2022, Additional history exists Colonoscopy 01/08/2025 [...] Name Priority Date/Time Associated Diagnosis Comments CARDIOLOGY CONSULT 11/18/2024 12 :00 AM CDT US - UPPER EXTREMITY 11/18/2024 12:00 AM CDT XR - UPPER EXTREMITY 11/18/2024 12:00 AM CDT US - LOWER EXTREMITY 11/18/2024 12:00 AM CDT XR - UPPER EXTREMITY 11/17/2024 12:00 AM CDT XR - CHEST 11/15/2024 12:00 AM CDT EKG SCAN 11/07/2024 12:00 AM CDT PROTIME (PT) (PROTHROMBIN TIME) 11/07/2024 12:00 AM [...] - ABDOMEN/PELVIS 10/03/2024 1 2:00 AM CDT [id number] CONSULT 09/27/2024 12:00 AM CDT EXTERNAL ENT [...] Recently Relevant to Health Maintenance Results * US - UPPER EXTREMITY (11/18/2024 12:00 AM CDT) 11/18/2024 us Provider Scan IMG US ORDERABLES Final Result Performing Organization Address City/[facility] de Phone Number SCAN * US - LOWER EXTREMITY (11/18/2024 12:00 AM CDT) 11/18/2024 us Provider Scan IMG US ORDERABLES Final Result Performing Organization Address [facility] de Phone Number SCAN * XR - UPPER EXTREMITY (11/18/2024 12:00 AM CDT) Only the most recent of2 resultswithin the time period is included. 11/18/2024 us Provider Scan IMG DIAGNOSTIC ORDERABLES Final Result Performing Organization Address [facility] de Phone Number SCAN * CARDIOLOGY CONSULT (11/18/2024 12:00 AM CDT) 11/18/2024 us Provider Scan GENERIC SCAN ORDERS CONSULT Deann l Result Performing Organization Address [facility] de Phone Number SCAN * XR - CHEST (11/15/2024 12:00 AM CDT) Only the most recent of2 resultswithin the time period is included. 11/15/2024 us Provider Scan IMG DIAGNOSTIC ORDERABLES Final Result Performing Organization Address [facility] de Phone Number SCAN * EKG SCAN (11/07/2024 12:00 AM CDT) 11/07/2024 us Provider Scan IMG ECG ORDERABLES Final Result Performing Organization Address [facility] de Phone Number RESULTING AGENCY * URINALYSIS (UA) RANDOM (11/07/2024 12:00 AM CDT) 11/07/2024 us Provider Scan URINE ORDERABLES Final Result Performing Organization Address [facility] de Phone Number SCAN * THYROID STIMULATING HORMONE (TSH) (11/07/2024 12:00 AM CDT) 11/07/2024 us Provider Scan CHEMISTRY ORDERABLES Final Resul t Performing Organization Address [facility] de Phone Number SCAN * APTT (PTT) (11/07/2024 12:00 AM CDT) 11/07/2024 us Provider Scan HEMATOLOGY ORDERABLES Final Resu lt Performing Organization [facility] de Phone Number SCAN * PROTIME (PT) (PROTHROMBIN TIME) (11/07/2024 12:00 AM CDT) INR 2.0 SCAN 11/07/2024 us Provider Scan HEMATOLOGY ORDERABLES Final Resu lt Performing Organization [facility] de Phone Number SCAN * MAGNESIUM (MG) (11/07/2024 12:00 AM CDT) 11/07/2024 us Provider Scan CHEMISTRY ORDERABLES Final Resul t Performing Organization [facility] de Phone Number SCAN * LACTIC ACID (LACTATE) (11/07/2024 12:00 AM CDT) 11/07/2024 us Provider Scan CHEMISTRY ORDERABLES Final Resul t Performing Organization Address [facility] de Phone Number SCAN * CMP (COMPREHENSIVE METABOLIC PANEL) (11/07/2024 12:00 AM CDT) 11/07/2024 us Provider Scan CHEMISTRY ORDERABLES Final Resul t Performing Organization Address [facility] de Phone Number SCAN * COMPLETE BLOOD COUNT (CBC) WITH DIFF (11/07/2024 12:00 AM CDT) 11/07/2024 us Provider Scan HEMATOLOGY ORDERABLES Final Resu lt Performing Organization Address [facility] de Phone Number SCAN * B-TYPE NATRIURETIC PEPTIDE (BNP) (11/07/2024 12:00 AM CDT) 11/07/2024 us Provider Scan CHEMISTRY ORDERABLES Final Resul t Performing Organization Address [facility] de Phone Number SCAN * INTERNAL MEDICINE CONSULT (10/17/2024 12:00 AM CDT) Only the most recent of2 resultswithin the time period is included. 10/17/2024 us Provider Scan GENERIC SCAN ORDERS CONSULT Deann l Result Performing Organization Address [facility] de Phone Number SCAN * CT - ABDOMEN/PELVIS (10/15/2024 12:00 AM CDT) Only the most recent of4 resultswithin the time period is included. 10/15/2024 us Provider Scan IMG CT ORDERABLES Final Result Performing Organization Address [facility] de Phone Number SCAN * SURGERY CONSULT (10/12/2024 12:00 AM CDT) 10/12/2024 us Provider Scan GENERIC SCAN ORDERS CONSULT Deann l Result Performing Organization Address [facility] de Phone Number SCAN * CT - SPINE (10/06/2024 12:00 AM CDT) 10/06/2024 us Provider Scan IMG CT ORDERABLES Final Result Performing Organization Address [facility] de Phone Number SCAN * EXTERNAL ENT REFERRAL (09/27/2024 12:00 AM CDT) 09/27/2024 July N Oehl [employer]ER[employer] DEVELOPER, SOFT BOARDER OUTPT REFERRALS EXT/INT F inal Result Performing Organization Address [facility] de Phone Number SCAN * [id number] CONSULT (09/27/2024 12:00 AM CDT) 09/27/2024 Provider Scan GENERIC SCAN ORDERS CONSULT Deann l Result Performing Organization Address [facility] de Phone Number SCAN * PAIN CONSULT (09/19/2024 12:00 AM CDT) 09/19/2024 Justen Gale MD GENERIC SCAN ORDERS CONSULT F inal Result Performing Organization Address [facility] de Phone Number SCAN * HEMOGLOBIN, A1C (10/02/2023 12:00 AM CDT) HGB-A1C 7.8 SCAN 10/02/2023 Provider Scan CHEMISTRY ORDERABLES Final Resul t Performing Organization Address [facility] de Phone Number SCAN * HM COLONOSCOPY (01/09/2020) Genaro Jensen DO PROCEDURE/MINOR SURGICAL ORDERA BLES Final Result * AMB REFERRAL TO PODIATRY (08/13/2019) us Alvarez Mensah MD OUTPATIENT REFERRALS Final Res ult * POCT STOOL, OCCULT BLOOD, DIAGNOSTIC (09/07/2018 1:20 PM CDT) OCCULT BLOOD, STOOL Negative Negative, Other POC HEMOCULT CONTROL Direct Chill C[place] Pass 09/07/2018 1:20 PM CDT us Pili Elkins [employer] DEVELOPER, SOFT BOARDER POINT OF CARE TESTIN G (MANUAL) Final Result from Last 3 Months or Most Recently Relevant to Health Maintenance Insurance MEDICAID [place] MEDICARE C [facility] Care Teams Sheet Metal Worker Relationship Specialty Start Date End Date Justen Gale MD [address] [place] [address] PCP - General Family Medicine 10/17/17 David Roberts APRN, SOFT BOARDER [address] [place] [address] Nurse Practitioner Advanced Practice Nurse 01/31/22 Annel Rod MD [address] [address] Consulting Physician Endocrinology 07/01/22
[2024-11-27 00:13] VITALS: BP 118/70; PULSE 92; RESP 20; TEMP 36.3; O2SAT 97
--- OUTSIDE RECORDS SUMMARY | 2024-11-27 03:15 | XMS_ITS | Encounter Summary ---
Author Organization [facility] Address [address] [place] [address] Phone Care Team Providers Care Granite Sandblaster Apprentice Name Role Phone Justen aGle MD Primary Care Provider David Roberts APRN, SUPERVISOR IN CIRCUIT TESTING Unavailable Annel Rod MD Unavailable Reason for Visit * Reason Onset Date Comments Sore Throat 06/29/2020 Encounter Details Date Type Department Care Team (Late st Contact Info) Description 06/29/2020 Telephone [facility] [place] [address] Justen Gale MD [address] [address] Sore Throat Social History Tobacco Use Types [...] COVID-19? No / Unsure 06/29/2020 8:43 AM SKIMMER SCOOP OPERATOR documented as of this encounter Miscellaneous Notes * Telephone Encounter - Gail Lucero RN - 06/29/2020 3:53 PM CST Attempted to call mailbox is full. Pt does not need testing MER SCOOP OPERATOR * Telephone Encounter - Vince Hermosillo MD - 06/29/2020 3:13 PM CST No covid testing needed. If the er thought that it was warranted then they would have done this. MER SCOOP OPERATOR * Telephone Encounter - Marlys Sorensen RN - 06/29/2020 8:36 AM CST Patient calling. Patient is calling to schedule Hospital/ED/Prompt-Care follow up appointment. Hospital/ED/Prompt-[facility] Site: [facility] ED Records Requested: Yes Reason for [...] f/up and yearly PAP appointments? Please advise. MER SCOOP OPERATOR documented in this encounter Plan of Treatment Upcoming Encounters Date Type Department Care Team (Late st Contact Info) Description 12/17/2024 3:30 PM CDT Office Visit [facility] - Endocrinology - [place] [address] [place] [address] Annel Rod MD [address]2 [facility] [address] [place] [address] 05/29/2025 1:30 PM SKIMMER SCOOP OPERATOR Office Visit [facility] - Family Medicine [facility] [address] [place] [address] Justen Gale MD [address]2 [facility] [address] [place] [address] documented as of this encounter Visit Diagnoses Not on filedocumented in this encounter Additional Health Concerns Infection Onset Date Last Indicated Resolved Time COVID - 19 08/01/2024 08/01/2024 08/01/2024 3:20 PM CDT Assessment Noted Time PHQ-9 Depression Total Score: 0 09/08/19 19 1:00 PM CDT documented as of this encounter Care Teams Granite Sandblaster Apprentice Relationship Specialty Start Date End Date Justen Gale MD [address]2 [facility] [address] [place] [address] PCP - General Family Medicine 10/17/17 David Roberts, INSPECTOR QUALITY ASSURANCE, SUPERVISOR IN CIRCUIT TESTING [address] [place] [address] Nurse Practitioner Advanced Practice Nurse 01/31/22 Annel Rod MD [address]2 [facility] [address] [place] [address] Consulting Physician Endocrinology 07/01/22 documented as of this encounter
--- OUTSIDE RECORDS SUMMARY | 2024-11-27 03:15 | XMS_ITS ---
Author Organization [facility] Address [address] [place] [address] Care Team Providers Care Library Cataloging Technician Name Role Phone Liu Jerez MD Unavailable [phone] Albert Corbin MD Unavailable Justen Gale MD Primary Care Provider Khris Arthur MD Unavailable [phone] Ko Melendez MD Unavailable John Paul Moyer MD Unavailable [phone] Annel Rod MD Unavailable Anali MARSHALL MD, Carlos M. Unavailable Active Problems Problem Noted Date Diagnosed Date Urinary tract infection 05/22/2024 Assessment & Plan (05/26/2024 10:08 AM ACID TESTER): Presenting with urinary symptoms of right flank [...] 05/22/2024 Assessment & Plan (05/25/2024 7:52 AM ACID TESTER): Hx of breast cancer c/b DVT/bilateral Pes [...] 05/22/2024 Assessment & Plan (05/22/2024 1:14 PM ACID TESTER): -long-standing chronic back pain -CT L spine [...] long-term current use of insulin ([facility]) 10/23/2017 Assessment & [...] 10/13/2017 Assessment & Plan (05/22/2024 12:29 PM ACID TESTER): -Hx stage II, ER positive, HER2 negative [...] 08/01/2017 Assessment & Plan (05/22/2024 12:33 PM ACID TESTER): -Hx LUL -Hospital provided CPAP ordered History of DVT (deep vein thrombosis) 08/01/2017 History of pulmonary embolism 08/01/2017 Generalized weakness 07/27/2017 Dyspnea 07/27/2017 Unintentional weight loss 07/27/2017 Acute cystitis without hematuria 07/27/2017 Nausea and vomiting 07/26/2017 Overview (07/28/2017): Added automatically from request for surgery [id number] Pulmonary embolism 08/09/2016 Assessment & Plan (10/23/2017 2:05 AM CDT): On Rivaroxaban Lymphedema of left upper extremity 08/09/2016 Assessment & Plan (05/25/2024 7:53 AM ACID TESTER): S/p L axillary lymph node dissection 2014, [...] syndrome Assessment & Plan (05/22/2024 11:18 AM ACID TESTER): -continue home Requip 5mg nightly Pain of lower extremity 03/12/2013 Overview (07/29/2016): Leg pain Essential hypertension Assessment & Plan (05/23/2024 10:42 AM ACID TESTER): -Chart history of HTN but not on meds -BP elevated on admission, likely some pain contributing -Monitor closely once pain under adequate control, discussed following up with PCP for this Chronic anticoagulation Restless leg syndrome 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 Type 2 diabetes mellitus without complication Assessment & Plan (05/24/2024 1:39 PM ACID TESTER): -Last Ha1c 8.4 in 2023, repeat 8.7 [...] left female breast, unspecified estrogen receptor status (HCC)custodial (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
--- OUTSIDE RECORDS SUMMARY | 2024-11-27 03:15 | XMS_ITS | Clinical Summary ---
Author Organization [facility] Address [address] [place] [address] Care Team Providers Care Buggy Loader Name Role Phone Liu Jerez MD Unavailable Albert Corbin MD Unavailable Justen Gale MD Primary Care Provider Khris Arthur MD Unavailable [phone] Ko Melendez MD Unavailable John Paul Moyer [...] 05/22/2024 Assessment & Plan (05/26/2024 10:08 AM SIGN BOARD ERECTOR): Presenting with urinary symptoms of right flank [...] 05/22/2024 Assessment & Plan (05/25/2024 7:52 AM SIGN BOARD ERECTOR): Hx of breast cancer c/b DVT/bilateral Pes [...] 05/22/2024 Assessment & Plan (05/22/2024 1:14 PM SIGN BOARD ERECTOR): -long-standing chronic back pain -CT L spine [...] 09/12/2021 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) 2021 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 10/17/2019 [...] without long-term current use of insulin ([facility]) 10/23/2017 Assessment & Plan (10/23/2017 [...] 10/13/2017 Assessment & Plan (05/22/2024 12:29 PM SIGN BOARD ERECTOR): -Hx stage II, ER positive, HER2 negative [...] 08/01/2017 Assessment & Plan (05/22/2024 12:33 PM SIGN BOARD ERECTOR): -Hx LUL -Hospital provided CPAP ordered History of DVT (deep vein thrombosis) 08/01/2017 History of pulmonary embolism 08/01/2017 Generalized weakness 07/27/2017 Dyspnea 07/27/2017 Unintentional weight loss 07/27/2017 Acute cystitis without hematuria 07/27/2017 Nausea and vomiting 07/26/2017 Overview (07/28/2017): Added automatically from request for surgery [id number] Pulmonary embolism 08/09/2016 Assessment & Plan (10/23/2017 2:05 AM CDT): On Rivaroxaban Lymphedema of left upper extremity 08/09/2016 Assessment & Plan (05/25/2024 7:53 AM SIGN BOARD ERECTOR): S/p L axillary lymph node dissection 2014, [...] syndrome Assessment & Plan (05/22/2024 11:18 AM SIGN BOARD ERECTOR): -continue home Requip 5mg nightly Pain of lower extremity 03/12/2013 Overview (07/29/2016): Leg pain Essential hypertension Assessment & Plan (05/23/2024 10:42 AM SIGN BOARD ERECTOR): -Chart history of HTN but not on meds -BP elevated on admission, likely some pain contributing -Monitor closely once pain under adequate control, discussed following up with PCP for this Chronic anticoagulation Restless leg syndrome 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 Type 2 diabetes mellitus without complication Assessment & Plan (05/24/2024 1:39 PM SIGN BOARD ERECTOR): -Last Ha1c 8.4 in 2023, repeat 8.7 [...] drink = 0.6 oz pur e alcohol) [facility] Utilities Answer Date Recorded In the past 12 months has [facility], gas, oil, or water [employer] threatened to shut off services in your [...] any clubs o r organizations such as lutheran groups, unions, fraternal or athletic groups, or [...] on file Legal Sex Female 12:24 AM SIGN BOARD ERECTOR Gender Identity Not on file Sexual [...] CDT HEMOGLOBIN A1C STAT 05/21/2024 4:20 PM SIGN BOARD ERECTOR LIPID PANEL STAT 05/21/2024 4:20 PM SIGN BOARD ERECTOR DEXA AXIAL SKELETON BONE DENSITY 1 OR [...] reviewed 2021. Testing performed by: [facility], [address] [place] [address]., [id number] Blood 07/01/2024 2:02 PM CDT 07/01/2024 2:12 PM CDT Ilana Stevens MD LAB BLOOD ORDERABLES F inal Result [facility] [address] [facility] Department [place] [address] * (ABNORMAL) Hemoglobin A1c (05/21/2024 4:20 PM SIGN BOARD ERECTOR) Hgb A1C 8.7(H) 4.0 - 5.6 % Estimated Average Glucose 203 mg/dL [facility] Comment: The ADA recommends reporting an estimated Average Glucose (eAG) with all Hemoglobin A1c results using the equation derived from a study of 507 normal and diabetic adults. Minority populations were underrepresented and children were not included. (Diabetes Care 2020; 43(S1): S66-S76). The eAG is not equivalent to a fasting glucose. Blood 05/21/2024 4:20 PM SIGN BOARD ERECTOR 05/21/2024 4:55 PM SIGN BOARD ERECTOR us Leo Henry MD LAB BLOOD ORDERABLES Final Result [facility] Department [place] [address] * (ABNORMAL) Lipid panel (05/21/2024 4:20 PM SIGN BOARD ERECTOR) Cholesterol 205(H) 30 - 199 mg/dL Comment: [...] 2017. Triglycerides 92 <=149 mg/dL [facility] Comment: Interpretive Data Ages < [...] 2017. HDL 55 >=40 mg/dL [facility] Comment: Interpretive Data Ages < [...] revised on 2023. Non-HDL Cholesterol 150 mg/dL [facility] Comment: Interpretive Data Ages < [...] last revised on 2017. Chol/HDL ratio 4 [facility] Blood 05/21/2024 4:20 PM SIGN BOARD ERECTOR 05/21/2024 4:50 PM SIGN BOARD ERECTOR Narrative [facility] - 05/22/2024 4:17 PM SIGN BOARD ERECTOR Reflex us Leo Henry MD LAB BLOOD ORDERABLES Final Result [facility] Department [place] [address] * Dexa Axial Skeleton Bone Density 1 or 2 Site (08/02/2022 10:53 AM CDT) Anatomical Region Laterality Modality Body N/A Radiographic Lizeth ging Narrative 08/02/2022 3:34 PM CDT Patient Name: Karly Marques Date of : 1955 Date of scan: 08/02/2022 Bone mineral density was performed on a Holoarchify Discovery Densitometer. Based on machine cross-calibration and [...] assessment and scan interpretation were performed by Kayile Castro MD who is certified by the International Society of Clinical Densitometry. [id number] us Khris Arthur MD IMG DXA PROCEDURES [...] agrees with it. ACC# Date Time Exam [id number] Aug 19, 2016 14:27:00 [facility] [address] Diag Mamm, inc CAD, unilat L Technologist(s): Carla Harris; ; [id number] Aug 19, 2016 15:39:00 [facility] 61627 Breast US unilateral, ltd L ACC# Date Time Exam [id number] Aug 19, 2016 14:27:00 [facility] [id number] Diag Mamm, inc CAD, unilat L Technologist(s): Carla Harris; ; [id number] Aug 19, 2016 15:39:00 C [id number] Breast US unilateral, ltd L EXAMINATION: LEFT [...] SARABIA M.D. on Aug 19 2016 4:20P [id number] Procedure Note Miscellaneous, Not In File / Provider, MD Tyler - 09/17/2016 ANTHONY SARABIA M.D. JUDY RINCON M.D. FINAL REPORT The radiology attending physician has personally reviewed this study, and has reviewed and/or edited this written report and agrees with it. ACC# Date Time Exam [id number] Aug 19, 2016 14:27:00 [facility] [address]15[address] Diag Mamm, inc CAD, unilat L Technologist(s): Carla Harris; ; [id number] Aug 19, 2016 15:39:00 [facility] [id number] Breast US unilateral, ltd L ACC# Date Time Exam [id number] Aug 19, 2016 14:27:00 [facility] [id number] Diag Mamm, inc CAD, unilat L Technologist(s): Carla Harris; ; [id number] Aug 19, 2016 15:39:00 [facility] [address]57 Breast US unilateral, ltd L EXAMINATION: LEFT [...] SARABIA M.D. on Aug 19 2016 4:20P [id number] us Not In File Miscellaneous IMG MAMMO PROCEDURES F inal Result from Last 3 Months or Most Recently Relevant to Health Maintenance Insurance [employer] [facility] MEDICARE ADVANTAGE [facility] MEDICARE ADVANTAGE [facility] MEDICARE ADVANTAGE Advance Directives For more information, please contact: [phone] Documents on File Type Date Recorded Patient Ham Curer Expl anation ADVANCE DIRECTIVE 12/23/2021 2:49 PM Power of Medical Record Administrator-Medical ADVANCE DIRECTIVE 12/23/2021 2:49 PM Living Will [...] File Name Relationship Healthcare Agent [facility] Communication Yunior Marques Daughter Health Care Agent Jimmie Marques Spouse First Alternate Health Care Agent Care Teams Buggy Loader Relationship Specialty Start Date End Date Justen Gale MD 2 [facility] [address] [place] [address] PCP - General 10/09/17 Liu Jerez MD Consulting Physician Gastroenterology 07/28/17 [place] [address] [facility] [address] [place] [address] Consulting Physician Pulmonary Disease 08/03/17 [place] [address] [place] [address] [address] [place] [address] Medical Oncologist/Cat Driver Medical Oncology 10/23/17 [place] [address] [address] Surgeon Orthopedic Surgery 10/23/17 [place] [address] [address] Consulting Physician Pain Management 10/23/17 [place] [address] [address] Referring Physician General Surgery 01/26/18 [place] [address] [address] [facility] [address] [place] [address] Consulting Physician Neurology 01/26/18
--- OUTSIDE RECORDS SUMMARY | 2024-11-27 03:16 | XMS_ITS | Encounter Summary ---
Author Organization [facility] Address [address] [place] [address] Phone Care Team Providers Care Assistant Department Manager Name Role Phone Justen Gale MD Primary Care Provider [phone] David Roberts APRN, REMOTE COMPUTER TERMINAL OPERATOR Unavailable [phone] Annel Rod MD Unavailable Reason for Visit * Reason Comments Medication Refill Encounter Details Date Type Department Care Team (Late st Contact Info) Description 03/13/2021 Refill [facility] [address] [place] [address] Justen Gale MD #[address] [address] Medication Refill Social History Tobacco [...] COVID-19? No / Unsure 03/02/2021 5:05 PM SCREW REMOVER documented as of this encounter Plan of Treatment Upcoming Encounters Date Type Department Care Team (Late st Contact Info) Description 12/17/2024 3:30 PM CDT Office Visit [facility] #2 [place] [address] Annel Rod MD #[address] [address] 05/29/2025 1:30 PM SCREW REMOVER Office Visit [facility] Family [facility] #2 [place] [address] Justen Gale MD #[address] [address] documented as of this encounter Visit Diagnoses Not on filedocumented in this encounter Additional Health Concerns Infection Onset Date Last Indicated Resolved Time COVID - 19 08/01/2024 08/01/2024 08/01/2024 3:20 PM CDT Assessment Noted Time PHQ-9 Depression Total Score: 0 07/21/19 21 3:00 PM CDT documented as of this encounter Care Teams Assistant Department Manager Relationship Specialty Start Date End Date Justen Gale MD #[address] [address] PCP - General Family Medicine 10/17/17 David Roberts APRN, REMOTE COMPUTER TERMINAL OPERATOR #2 [place] [address] Nurse Practitioner Advanced Practice Nurse 01/31/22 Annel Rod MD [address] [address] Consulting Physician Endocrinology 07/01/22 documented as of this encounter
--- OUTSIDE RECORDS SUMMARY | 2024-11-27 03:16 | XMS_ITS | Encounter Summary ---
Author Organization [facility] Address [address] [place] [address] Phone Care Team Providers Care Program Facilitator Name Role Phone Justen Gale MD Primary Care Provider David Roberts APRN, HYDRO OPERATOR Unavailable Annel Rod MD Unavailable Encounter Details Date Type Department Care Team (Late st Contact Info) Description 06/05/2020 Lab Requisition [facility] [address] [place] [address] Pili Elkins APRN, HYDRO OPERATOR #[address] [address] Frequency of micturition Social History [...] COVID-19? No / Unsure 2020 11:37 AM SLOPE TENDER documented as of this encounter Plan of Treatment Upcoming Encounters Date Type Department Care Team (Late st Contact Info) Description 12/17/2024 3:30 PM CDT Office [facility] - Endocrinology [facility] #2 [place] [address] Annel Rod MD #2 [facility] [address] [place] [address] 05/29/2025 1:30 PM SLOPE TENDER Office Visit [facility] Family Medicine [facility] [address]2 [place] [address] Justen Gale MD #2 [facility] [address] [place] [address] documented as of this encounter Procedures Procedure Name Priority Date/Time Associated Diagnosis Comments URINALYSIS REFLEX IF INDICATED BY ABNORMAL RESULTS Routine 06/05/2020 4:45 PM SLOPE TENDER Frequency of micturition documented in this encounter Results * (ABNORMAL) URINALYSIS REFLEX IF INDICATED BY ABNORMAL RESULTS (06/05/2020 4:45 PM SLOPE TENDER) SPECIFIC GRAVITY 1.020 1.003 - 1.030 06/05/2020 5:19 PM SLOPE TENDER [facility] URINE PH 5.0 5.0 - 9.0 06/05/2020 5:19 PM SLOPE TENDER [facility] WBC ESTERASE Negative Negative 06/05/2020 5:19 PM SLOPE TENDER [facility] NITRITE Negative Negative 06/05/2020 5:19 PM SLOPE TENDER [facility] PROTEIN, RANDOM URINE Negative Negative 06/05/2020 5:19 PM SLOPE TENDER [facility] URINE GLUCOSE, QUAL Negative Negative 06/05/2020 5:19 PM SLOPE TENDER [facility] URINE KETONES Negative Negative 06/05/2020 5:19 PM SLOPE TENDER [facility] UROBILINOGEN Normal Normal mg/dL 06/05/2020 5:19 PM SLOPE TENDER [facility] URINE BILIRUBIN Negative Negative 5:19 PM SLOPE TENDER [facility] URINE BLOOD 25 /uL(A) Negative leandro/ul 06/05/2020 5:19 PM SLOPE TENDER [facility] URINALYSIS COLOR Yellow 06/05/19 5:19 PM SLOPE TENDER [facility] URINALYSIS CLARITY Clear 06/05/2020 5:19 PM SLOPE TENDER [facility] WBC (Urine) 0-5 Negative, 0-5 /hpf 06/05/2020 5:19 PM SLOPE TENDER [facility] URINE RBC'S 3-5(A) Negative, 0-2 /hpf 06/05/2020 5:19 PM SLOPE TENDER [facility] EPITHELIAL CELLS Small amount /lpf 2020 5:19 PM SLOPE TENDER [facility] BACTERIA, URINE Few(A) Negative /hpf 06/05/2020 5:19 PM [facility] Urine URINE SPECIMEN / Unknown Non-Phlebotomy Collection / Unknown 06/05/2020 4:45 PM SLOPE TENDER 06/05/2020 5:00 PM SLOPE TENDER us Pili Elkins JOURNEYMAN PRESSMAN, HYDRO OPERATOR URINE ORDERABLES Fin al Result [facility] #1 [place] [address] documented in this encounter Visit Diagnoses Diagnosis Frequency of micturition Urinary frequency documented in this encounter Additional Health Concerns Infection Onset Date Last Indicated Resolved Time COVID - 19 08/01/2024 08/01/2024 08/01/2024 3:20 PM CDT Assessment Noted Time PHQ-9 Depression Total Score: 0 05/17/20 19 1:00 PM CDT documented as of this encounter Care Teams Program Facilitator Relationship Specialty Start Date End Date Justen Gale MD #2 [facility] [address] [place] [address] PCP - General Family Medicine 10/17/17 David Roberts APRN, HYDRO OPERATOR #2 [place] [address] Nurse Practitioner Advanced Practice Nurse 01/31/22 Annel Rod MD #2 [facility] [address] [place] [address] Consulting Physician Endocrinology 07/01/22 documented as of this encounter
--- OUTSIDE RECORDS SUMMARY | 2024-11-27 03:16 | XMS_ITS | Encounter Summary ---
Author Organization [facility] Address [address] [place] [address] Phone Care Team Providers Care Primary Health Care Nurse Name Role Phone Justen Gale MD Primary Care Provider David Roberts APRN, DOG BARBER Unavailable [phone] Annel Rod MD Unavailable Reason for Visit * Reason Comments Medication Refill Encounter Details Date Type Department Care Team (Late st Contact Info) Description 02/17/2021 Refill [facility] #2 [place] [phone] Justen Gale MD #[address] [address] Medication Refill Social History Tobacco Use Types [...] Mcgee 06/05/20 Office Visit Pili Elkins APRN, DOG BARBER [facility] Showing recent visits within past 365 days and meeting all other requirements Future Appointments Date Type Provider Dept 03/02/21 Appointment Vince Hermosillo MD [facility] Showing future appointments within next 90 days and meeting all other requirements documented in this encounter Plan of Treatment Upcoming Encounters Date Type Department Care Team (Late st Contact Info) Description 12/17/2024 3:30 PM CDT Office Visit [facility] Endocrinology [facility] #2 [place] [place] [address] Annel Rod MD #2 [facility] [address] [place] [address] 05/29/2025 1:30 PM FINANCIAL SERVICES REPRESENTATIVE Office Visit [facility] Family Medicine [facility] #2 [place] [address] Justen Gale MD #2 [facility] [address] [place] [address] documented as of this encounter Visit Diagnoses Not on filedocumented in this encounter Additional Health Concerns Infection Onset Date Last Indicated Resolved Time COVID - 19 08/01/2024 08/01/2024 08/01/2024 3:20 PM CDT Assessment Noted Time PHQ-9 Depression Total Score: 0 07/21/19 3:00 PM CDT documented as of this encounter Care Teams Primary Health Care Nurse Relationship Specialty Start Date End Date Justen Gale MD #2 [facility] [address] [place] [address] PCP - General Family Medicine 10/17/17 David Roberts APRN, DOG BARBER #2 [place] [address] Nurse Practitioner Advanced Practice Nurse 01/31/22 Annel Rod MD #[address] [address] Consulting Physician Endocrinology 07/01/22 documented as of this encounter
--- OUTSIDE RECORDS SUMMARY | 2024-11-27 03:16 | XMS_ITS | Encounter Summary ---
Author Organization [facility] Address [address] [place] [address] Phone Care Team Providers Care Outside Parts Sales Name Role Phone Justen Gale MD Primary Care Provider David Roberts APRN, POPULATION HEALTH COACH Unavailable Annel Rod MD Unavailable Reason for Visit * Reason Comments Medication Refill Encounter Details Date Type Department Care Team (Late st Contact Info) Description 02/07/2020 Refill [facility] [address] [place] [address] Justen Gale MD #[address] [address] Medication Refill Social History Tobacco Use Types [...] Description 12/17/2024 3:30 PM CDT Office Visit [facility] - Endocrinology - [place] #2 [place] [address] Annel Rod MD #2 [facility] [address] [place] [address] 05/29/2025 1:30 PM ACTIVITIES DIRECTOR Office Visit [facility] - Family Medicine - [place] #2 [place] [address] Justen Gale MD #2 [facility] [address] [place] [address] documented as of this encounter Visit Diagnoses Not on filedocumented in this encounter Additional Health Concerns Infection Onset Date Last Indicated Resolved Time COVID - 19 08/01/2024 08/01/2024 08/01/2024 3:20 PM CDT Assessment Noted Time PHQ-9 Depression Total Score: 0 09/08/19 19 1:00 PM CDT documented as of this encounter Care Teams Outside Parts Sales Relationship Specialty Start Date End Date Justen Gale MD #2 [facility] [address] [place] [address] PCP - General Family Medicine 10/17/17 David Roberts APRN, POPULATION HEALTH COACH #2 [place] [address] Nurse Practitioner Advanced Practice Nurse 01/31/22 Annel Rod MD #[address] [address] Consulting Physician Endocrinology 07/01/22 documented as of this encounter
--- OUTSIDE RECORDS SUMMARY | 2024-11-27 03:16 | XMS_ITS | Encounter Summary ---
Author Organization [facility] Address [address] [place] [address] Phone Care Team Providers Care Propellant Assembler Name Role Phone Justen Gale MD Primary Care Provider David Roberts APRN, DRIVER'S EDUCATION INSTRUCTOR Unavailable [phone] Annel Rod MD Unavailable Reason for Visit * Reason Comments Medication Refill Encounter Details Date Type Department Care Team (Late st Contact Info) Description 08/07/2023 Refill [facility] - [facility]ocr[facility]ology - [place] #2 [place] [address] Annel Rod MD #[address] [address] Medication Refill Social History Tobacco [...] AM CDT Medication(s) refilled and signed per [facility] Chronic Medication Refill Standing Order for Pediatric and Adult Patients. documented in this encounter Plan of Treatment Upcoming Encounters Date Type Department Care Team (Late st Contact Info) Description 12/17/2024 3:30 PM CDT Office Visit [facility] - Endocrinology - [place] #2 [place] [address] Annel Rod MD #[address] [address] 05/29/2025 1:30 PM APPLIED TECHNOLOGIST Office Visit [facility] - Family Medicine - [place] #2 [place] [address] Justen Gale MD #2 [facility] [address] [place] [address] documented as of this encounter Visit Diagnoses Not on filedocumented in this encounter Additional Health Concerns Infection Onset Date Last Indicated Resolved Time COVID - 19 08/01/2024 08/01/2024 08/01/2024 3:20 PM CDT Assessment Noted Time PHQ-9 Depression Total Score: 8 01/18/20 23 2:24 PM CDT documented as of this encounter Care Teams Propellant Assembler Relationship Specialty Start Date End Date Justen Gale MD #[address] [address] PCP - General Family Medicine 10/17/17 David Roberts APRN, DRIVER'S EDUCATION INSTRUCTOR #[address] [place] [address] Nurse Practitioner Advanced Practice Nurse 01/31/22 Annel Rod MD #[address] [address] Consulting Physician Endocrinology 07/01/22 documented as of this encounter
--- OUTSIDE RECORDS SUMMARY | 2024-11-27 03:16 | XMS_ITS | Encounter Summary ---
Author Organization [facility] Address [address] [place] [address] Phone Care Team Providers Care Filter Screen Cleaner Name Role Phone Justen Gale MD Primary Care Provider David Roberts APRN, SORTER PRICER Unavailable [phone] Annel Rod MD Unavailable Reason for Visit * Reason Comments Medication Refill Encounter Details Date Type Department Care Team (Late st Contact Info) Description 07/06/2023 Refill [facility] - Family [facility] #2 [place] [address] Justen Gale MD #[address] [address] Medication Refill Social History Tobacco Use Types [...] AM CDT Medication(s) refilled and signed per [facility] Chronic Medication Refill Standing Order [...] Dept 06/27/23 Office Visit Justen Gale MD [facility] [place] 01/17/23 Office Visit Catrina Quiñonez MD [facility] [place] Showing recent visits within past [...] 12/17/2024 3:30 PM CDT Office Visit [facility] - Endocrinology - [place] #[address] [place] [address] Annel Rod MD #[address] [place] [address] 05/29/2025 1:30 PM PRINTING GREY CLOTH TENDER Office Visit [facility] - Family [facility] #[address] [place] [address] Justen Gale MD [facility] [address] [place] [address] documented as of this encounter Visit Diagnoses Not on filedocumented in this encounter Additional Health Concerns Infection Onset Date Last Indicated Resolved Time COVID - 19 08/01/2024 08/01/2024 08/01/2024 3:20 PM CDT Assessment Noted Time PHQ-9 Depression Total Score: 8 01/18/20 2:24 PM CDT documented as of this encounter Care Teams Filter Screen Cleaner Relationship Specialty Start Date End Date Justen Gale MD #[address] [address] PCP - General Family Medicine 10/17/17 David Roberts, BRAKE DRUM MOLDER, SORTER PRICER #2 [place] [address] Nurse Practitioner Advanced Practice Nurse 01/31/22 Annel Rod MD #[address] [address] Consulting Physician Endocrinology 07/01/22 documented as of this encounter
--- OUTSIDE RECORDS SUMMARY | 2024-11-27 03:16 | XMS_ITS | Encounter Summary ---
Author Organization [facility] Address [address] [place] [address] Phone Care Team Providers Care Health Information Provider Name Role Phone Lavonne Hathaway MD Primary Care Provider + [phone] Liu Jerez MD Unavailable [phone] Albert Corbin MD Unavailable [phone] Justen Gale MD Primary Care Provider [phone] Lavonne Hathaway MD Primary Care Provider + [phone] Justen Gale MD Primary Care Provider + [phone] Khris Arthur MD Unavailable + [phone] Ko Melendez MD Unavailable [phone] John Paul Moyer MD Unavailable Annel Rod MD Unavailable Anali MARSHALL MD, Carlos M. 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 Gender Identity Not on file Sexual [...] COVID: Recovered 02/10/2022 02/10/2022 06/10/2022 3:05 AM PAYROLL TECHNICIAN Exposure, COVID-19 Comment:Added automatically based on COVID19 lab answers indicating exposure risk 02/11/2022 02/11/2022 02/15/2022 9:06 AM C DT COVID: Suspected 05/14/2022 05/14/2022 05/14/2022 10:41 AM PAYROLL TECHNICIAN COVID: Suspected 06/07/2022 06/07/2022 06/07/2022 12:28 PM PAYROLL TECHNICIAN COVID: Suspected 06/21/2022 06/21/2022 06/21/2022 2:12 AM PAYROLL TECHNICIAN COVID: Suspected 10/05/2022 10/05/2022 10/05/2022 7:40 PM CDT COVID: Suspected 01/04/2024 01/04/2024 01/04/2024 10:30 PM CDT COVID: Suspected 02/14/2024 02/14/2024 02/15/2024 12:36 AM CDT COVID: Suspected 07/01/2024 07/01/2024 07/01/2024 2:53 PM CDT COVID: Suspected 07/01/2024 07/01/2024 07/02/2024 3:05 AM CDT documented as of this encounter Care Teams Health Information Provider Relationship Specialty Start Date End Date Lavonne Hathaway MD [address] [place] [address] [place] [address] PCP - General 08/16/16 08/17/17 Justen Gale MD [address] [place] [address] [address] PCP - General 08/18/17 08/22/17 Lavonne Hathaway MD [address] [place] [address] [place] [address] PCP - General Family Medicine 08/23/17 10/08/17 Justen Gale MD 2 [facility] [place] [address] [address] PCP - General 10/09/17 Liu Jerez MD [address] [place] [address] [place] [address] Consulting Physician Gastroenterology 07/28/17 [place] [address] [facility] [address] [place] [address] Consulting Physician Pulmonary Disease 08/03/17 Khris Arthur MD [address] [facility] [address] [place] [address] Medical Oncologist/Stained Glass Artist Medical Oncology 10/23/17 [place] [address] [facility] [address] [place] [address] Surgeon Orthopedic Surgery 10/23/17 [place] [address] [facility] [address] [place] [address] Consulting Physician Pain Management 10/23/17 [place] [address] [facility] [address] [place] [address] Referring Physician General Surgery 01/26/18 [place] [address] [facility] [address] [place] [address] Consulting Physician Neurology 01/26/18 documented as of this encounter
--- OUTSIDE RECORDS SUMMARY | 2024-11-27 03:16 | XMS_ITS | Encounter Summary ---
Author Organization [facility] Address [address] [place] [address] Phone Care Team Providers Care International Editorial Producer Name Role Phone Justen Gale MD Primary Care Provider David Roberts APRN, TEXTILE DESIGNS SALES REPRESENTATIVE Unavailable Annel Rod MD Unavailable Reason for Visit * Reason Comments Medication Refill Encounter Details Date Type Department Care Team (Late st Contact Info) Description 08/30/2022 Refill [facility] [address]2 [place] [address] Justen Gale MD #[address] [address] Medication Refill Social History Tobacco Use Types [...] Office Visit Pili Elkins APRN, NETTA [facility] [place] 05/02/22 Office Visit Justen Gale MD [facility] [place] 03/03/22 Office Visit Pili Elkins APRN, NETTA [facility] [place] 01/03/22 Office Visit Dannielle Berg PAC [facility] [place] 12/07/21 Office Visit Pili Elkins APRN, NETTA [facility] [place] 11/09/21 Office Visit Pili Elkins APRN, NETTA [facility] [place] 10/08/21 Office Visit Angelito Alegria APRN, NETTA [facility] [place] 08/30/21 [facility] Show[facility] recent visits within past 365 [...] Visit [facility] [place] [address] [place] [address] Annel Rod MD #[address] [address] 05/29/2025 1:30 PM RING STRIKER Office Visit [facility] Family Medicine [facility] [address] [place] [address] Justen Gale MD [address] [address] documented as of this encounter Visit Diagnoses Not on filedocumented in this encounter Additional Health Concerns Infection Onset Date Last Indicated Resolved Time COVID - 19 08/01/2024 08/01/2024 08/01/2024 3:20 PM CDT Assessment Noted Time PHQ-9 Depression Total Score: 0 07/21/19 3:00 PM CDT documented as of this encounter Care Teams International Editorial Producer Relationship Specialty Start Date End Date Justen Gale MD [address] [address] PCP - General Family Medicine 10/17/17 David Roberts APRN, TEXTILE DESIGNS SALES REPRESENTATIVE #2 [place] [address] Nurse Practitioner Advanced Practice Nurse 01/31/22 Annel Rod MD #[address] [address] Consulting Physician Endocrinology 07/01/22 documented as of this encounter
--- OUTSIDE RECORDS SUMMARY | 2024-11-27 03:16 | XMS_ITS | Clinical Summary ---
Author Organization [facility] Address [address] [place] [address] Care Team Providers Care Production Supervisor Trainee Name Role Phone Justen Gale MD Primary Care Provider [phone] Source Comments [facility],non-[facility] Affiliates and Associated Physician Practices is amultiple site organization consisting of ambulatory clinics and hospital sitesin [place], [place], [place] and [place]. This disclosure is being madepursuant to the Care Everywhere program and may not contain all information available regarding this patient. Last updated 18.[facility] [place] Allergies Active Allergy Reactions Criticality Noted Date [...] Eileen 2 Sensor Systm) [facility] APPLY 1 SENSOR AND WEAR [...] medical care, and heating? 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 Gender Identity Not on file Sexual Orientation [...] this topic Medical Devices Implanted Type Area Time Clock Mechanic Device Identifier Shelf Expiration Date Model / Serial / Lot Lead Nrstm 60cm Penta 3mm Pdl 16 Chnl Implanted:Qt y: 1 on 09/16/2021 by Maxi Gregg MD at [facility] Right: Spine Thoracic Advanced [employer] [id number] / / Description:CAMILO Slnt Dura Duraseal Pg Trilysine Amine 5 Implanted:Qt y: 1 on 09/16/2021 by Maxi Gregg MD at [facility] Right: Spine Thoracic Inte[employer] David [id number] / / Description:CAMILO Proclaim Plus 5 Implanted:Qt y: 1 on 02/16/2023 by Maxi Gregg MD at [facility] Left: Back Cardenas Spine [id number] 11/07/2024 3670 / [id number] / Explanted Type Area Time Clock Mechanic Device Identifier Shelf Expiration Date Model / Serial / Lot Gntr Nrstm 1.95inx2.19in Proclaim Elt Implanted:Qty: 1 on 09/16/2021 by Maxi Gregg MD at [facility] Explanted:Qty: 1 on 10/30/2021 by Maxi Gregg MD at [facility] Right: Spine Thoracic [employer] [...] COMPREHENSIVE METABOLIC PANEL (08/09/2024 1:40 PM CDT) [facility] Glucose 212(H) 70 - 99 mg/dL 08/09/2024 2:09 PM CDT [facility] Sodium 136 136 - 145 mmol/L 08/09/2024 2:09 PM CDT [facility] Potassium 3.9 3.5 - 5.1 mmol/L 08/09/2024 2:09 PM CDT [facility] Chloride 103 98 - 107 mmol/L 08/09/2024 2:09 PM CDT [facility] CO2 24 22 - 29 mmol/L 08/09/2024 2:09 PM CDT [facility] Calcium 9.4 8.4 - 10.4 mg/dL 08/09/2024 2:09 PM T [facility] Anion Gap 9 6 - 16 mmol/L 08/09/2024 2:09 PM CDT [facility] BUN 19 7 - 26 mg/dL 08/09/2024 2:09 PM T [facility] Creatinine 0.82 0.57 - 1.11 mg/dL 08/09/2024 2:09 PM [facility] Alkaline Phosphatase 68 40 - 150 U/L 08/09/2024 2:09 PM T [facility] ALT 22 6 - 57 U/L 08/09/2024 2:09 PM T [facility] AST 23 10 - 48 U/L 08/09/2024 2:09 PM [facility] Protein Total 8.0 6.4 - 8.3 gm/dL 08/09/2024 2:09 PM T [facility] Albumin 3.3(L) 3.4 - 5.0 gm/dL 08/09/2024 2:09 PM T [facility] Bilirubin Total 0.9 0.2 - 1.2 mg/dL 08/09/2024 2:09 PM [facility] eGFR by CKD-EPI 78(L) >=90 mL/min/1.7 3 m2 08/09/2024 2:09 PM [facility] Blood BLOOD SPECIMEN / Unknown Venipuncture / Unknown 08/09/2024 1:40 PM CDT 08/09/2024 1:43 PM T us Josué Bernal PA-C LAB - CHEMISTRY ORDERABLE S Final Result [facility] [address] [place] [address] * HEPATITIS C AB SCREEN RFLX NAAT QUANT (02/21/2023 6:30 PM CDT) Hepatitis C Antibody Non-react hugh Non-reac tive 02/21/2023 7:32 PM CDT [facility] Comment:Hepatitis C Antibody screen indicates no [...] MD LAB - CHEMISTRY ORDERABLES nal Result [facility] [address] [place] [address], [facility] [phone] * (ABNORMAL) HEMOGLOBIN A1C (12/25/2022 3:56 AM CDT) Pathologist [facility] Hemoglobin A1c 8.6(H) <=5.6 % 12/25/2022 2:47 PM CDT [facility] Estimated Average Glucose 200 mg/dL 12/25/2022 2:47 PM CDT [facility] Comment: HbA1c Interpretation: Normal : < 5.7% Pre-diabetes: 5.7-6.4% Diabetes: Equal to or greater than 6.5% Test results diagnostic of diabetes should be repeated for confirmation. Treatment target values recommended by ADA and other clinical organizations should be used to evaluate metabolic control in patients. Reference: [place] Diabetes Association, Standards of Care in Diabetes [...] LAB - CHEMISTRY RUSS VIZCARRA Final Result [place] [address] [place] [address], [facility] [phone] from Last 3 Months or Most Recently [...] 3:37 AM 03/23/2023 7:14 PM Care Teams Production Supervisor Trainee Relationship Specialty Start Date End Date Justen Gale MD PCP - General 07/05/21
--- OUTSIDE RECORDS SUMMARY | 2024-11-27 03:16 | XMS_ITS ---
Author Organization [facility] Address [address] [facility] [place] [address] Care Team Providers Care Bird Raiser Name Role Phone Justen Gale MD Primary Care Provider [phone] Active Problems Problem Noted Date Diagnosed Date [...]
--- OUTSIDE RECORDS SUMMARY | 2024-11-27 03:16 | XMS_ITS | Encounter Summary ---
Author Organization [facility] Address [address] [place] [address] Phone Care Team Providers Care Relay Tester Name Role Phone Justen Gale MD Primary Care Provider [phone] David Roberts APRN, BLOWER AND COMPRESSOR ASSEMBLER Unavailable [phone] Annel Rod MD Unavailable Reason for Visit * Reason Onset Date Comments Pain 09/23/2024 Encounter Details Date Type Department Care Team (Late st Contact Info) Description 09/23/2024 Telephone [facility] [address] [place] [address] Justen Gale MD #[address] [address] Pain Social History Tobacco Use Types Packs/Day Years Used Date Smoking Tobacco: Never Smokeless Tobacco: Never Alcohol Use Standard Drinks/Week Comments No 0 (1 standard drink = 0.6 oz pur e alcohol) [facility] Utilities Answer Date Recorded In the past 12 months has [employer] electric, gas, oil, or water company threatened [...] 1-9 0 07/23 [facility] - Occupational [...] in the past 12 m [facility], were you homeless or living [...] - patient has RA Outcome: Transfer to tree and shrub technician queue Reason: Caller denied all higher acuity questions The caller accepted this outcome. Caller Denied: * Chest pain * Headache * Eye pain * Abdominal pain * Genital pain documented in this encounter Plan of Treatment Upcoming Encounters Date Type Department Care Team (Late st Contact Info) Description 12/17/2024 3:30 PM CDT Office Visit [facility] - Endocrinology - [place] [address] [place] [address] Annel Rod MD #2 [facility] [address] [place] [address] 05/29/2025 1:30 PM RING STRIKER Office Visit [facility] Medical [facility] - Family Medicine - [place] #[address] [place] [address] Justen Gale MD #2 [facility] [address] [place] [address] documented as of this encounter Visit Diagnoses Not on filedocumented in this encounter Additional Health Concerns Assessment Noted Time PHQ-9 Depression Total Score: 0 08/02/19 25 1:09 PM CDT documented as of this encounter Care Teams Relay Tester Relationship Specialty Start Date End Date Justen Gale MD #2 [facility] [address] [place] [address] PCP - General Family Medicine 10/17/17 David Roberts APRN, NETTA [address] [place] [address] Nurse Practitioner Advanced Practice Nurse 01/31/22 Annel Rod MD [address] [address] Consulting Physician Endocrinology 07/01/22 documented as of this encounter
--- OUTSIDE RECORDS SUMMARY | 2024-11-27 03:16 | XMS_ITS | Encounter Summary ---
Author Organization [facility] Address [address] [place] [address] Phone Care Team Providers Care Recapper Name Role Phone Justen Gale MD Primary Care Provider [phone] David Roberts APRN, SUPPLIER RELATIONSHIP DIRECTOR Unavailable [phone] Annel Rod MD Unavailable Reason for Visit * Reason Onset Date Comments Advice Only 08/19/2024 Follow-up 08/19/2024 Encounter Details Date Type Department Care Team (Late st Contact Info) Description 08/19/2024 Telephone [facility] #2 [place] [address] Justen Gale MD #[address] [address] Advice Only; Follow-up Social History Tobacco Use Types Packs/Day Years Used Date Smoking Tobacco: Never Smokeless Tobacco: Never Alcohol Use Standard Drinks/Week Comments No 0 (1 standard drink = 0.6 oz pur e alcohol) [facility] Utilities Answer Date Recorded In [...] often do you attend chur ch or mandaen services? More than 4 times per year [...] Total Score - Questions 1-9 0 07/23 [facility] - Occupational Stress Questionnaire Answer [...] time in the past 12 m [facility], were you homeless [...] visit * Telephone Encounter - Angelito Alegria, ARCH CUSHION PRESS OPERATOR, SUPPLIER RELATIONSHIP DIRECTOR - 08/19/2024 9:04 AM CDT Forwarding * Telephone Encounter - Isaura Weiss RN - 08/19/2024 8:37 AM CDT Situation: Strep throat follow up Background: Patient contacting PCP office. Patient was seen in ED on 08/09 and 08/12 in [place] (records in chart). Diagnosed with strep. Assessment: [...] CDT Symptom: Sore Throat Outcome: Transfer to procedures analyst queue Reason: Caller denied all higher acuity questions The caller accepted this outcome. Caller Denied: * Struggling for each breath (severe trouble breathing) * Can't swallow saliva (drooling) documented in this encounter Plan of Treatment Upcoming Encounters Date Type Department Care Team (Late st Contact Info) Description 12/17/2024 3:30 PM CDT Office Visit [facility] - [facility] - [place] #2 [place] [address] Annel Rod MD [address] [phone] 05/29/2025 1:30 PM RAISIN WASHER Office Visit [facility] - Family [facility] #2 [place] [address] Justen Gale MD #[address] [address] documented as of this encounter Visit Diagnoses Not on filedocumented in this encounter Additional Health Concerns Assessment Noted Time PHQ-9 Depression Total Score: 0 08/02/19 25 1:09 PM CDT documented as of this encounter Care Teams Recapper Relationship Specialty Start Date End Date Justen Gale MD #[address] [address] PCP - General Family Medicine 10/17/17 David Roberts APRN, SUPPLIER RELATIONSHIP DIRECTOR #2 [place] [address] Nurse Practitioner Advanced Practice Nurse 01/31/22 Annel Rod MD #[address] [address] Consulting Physician Endocrinology 07/01/22 documented as of this encounter
--- OUTSIDE RECORDS SUMMARY | 2024-11-27 03:16 | XMS_ITS | Encounter Summary ---
Author Organization [facility] Address [address] [place] [address] Phone Care Team Providers Care Flux Core Welder Name Role Phone Justen Gale MD Primary Care Provider [phone] David Roberts APRN, CEMENT DESPATCH OPERATOR Unavailable Annel Rod MD Unavailable Reason for Visit * Reason Comments Medication Refill Encounter Details Date Type Department Care Team (Late st Contact Info) Description 02/07/2023 Refill [facility] #2 [place] [address] Pili Elkins APRN, CEMENT DESPATCH OPERATOR #[address] [address] Medication Refill Social History Tobacco [...] Description 12/17/2024 3:30 PM CDT Office Visit [facility] Medical Group - Endocrinology - [place] #2 [place] [address] Annel Rod MD #2 [facility] [address] [place] [address] 05/29/2025 1:30 PM SENIOR BOOKKEEPER Office Visit [facility] - Family [facility] #2 [place] [address] Justen Gale MD #2 [facility] [address] [place] [address] documented as of this encounter Visit Diagnoses Diagnosis Essential hypertension Unspecified essential hypertension documented in this encounter Additional Health Concerns Infection Onset Date Last Indicated Resolved Time COVID - 19 08/01/2024 08/01/2024 08/01/2024 3:20 PM CDT Assessment Noted Time PHQ-9 Depression Total Score: 8 01/18/20 2:24 PM CDT documented as of this encounter Care Teams Flux Core Welder Relationship Specialty Start Date End Date Justen Gale MD #2 [facility] [address] [place] [address] PCP - General Family Medicine 10/17/17 David Roberts, RESPIRATORY CARE PRACTITIONER, CEMENT DESPATCH OPERATOR #2 [place] [address] Nurse Practitioner Advanced Practice Nurse 01/31/22 Annel Rod MD #2 [facility] [address] [place] [address] Consulting Physician Endocrinology 07/01/22 documented as of this encounter
--- OUTSIDE RECORDS SUMMARY | 2024-11-27 03:16 | XMS_ITS | Clinical Summary ---
Author Organization [facility] Address [address] [place] [address] Phone Care Team Providers Care Lean Manager Name Role Phone Justen Gale MD Primary Care Provider [phone] David Roberts APRN, NEW AUTOS DELIVERY DRIVER Unavailable [phone] Annel Rod MD Unavailable Allergies Active Allergy [...] complication, without long-term current use of insulin ([facility]) Diagnosis: Diabetes Type 2 Blood testing frequency: 4 times a day 1 Each 11/22/19 18 Active Glucose Blood (ONE TOUCH ULTRA TEST) Strip Test four times daily. 400 Strip 3 02/11/20 20 Active Misc. Devices MiscIndication s:LUL (obstructive sleep apnea) Supply and instructions: 1 Each 09/10/19 21 Active OneTouch Delica Lancets 33G [facility] 1 Lancet by Does not apply route 4 times daily. 400 Lancet 3 03/09/20 21 Active naloxone HCl (Narcan) 4 MG/0.1ML Liquid 05/13/19 22 Active diphenhydrAMIN E (BENADRYL) 25 MG Capsule Take 25 mg by mouth every 6 hours as needed. Active Continuous Blood Gluc Sensor (FreeStyle Eileen 2 Sensor) [facility] APPLY 1 SENSOR AND [...] Tablet by mouth. 12/28/19 24 Active Multiple Vitamins-Facilities Flight Check Pilot als (WOMENS MULTI PO) Take by mouth. [...] taking until cleared by PCP office or lacing presser. Will need to taper off slowly. Indications: [...] Overview: Added automatically from request for surgery [id number] Lymphedema of left upper extremity 08/09/2016 Pulmonary embolism 08/09/2016 Overview (11/09/2017): Last Assessment & Plan: On Rivaroxaban Arthralgia of ankle 01/26/2015 Resolved Problems Problem Noted Date Diagnosed Date Resolved Date Cellulitis of breast 11/11/2014 025 Encounters Date Type Department Care Team Description 11/25/2024 10:00 AM CDT Office Visit [facility] [address] [place] [address] Pili Elkins APRN, NETTA Acute diastolic congestive heart failure (HCC) (Primary Dx); Type 2 diabetes mellitus with diabetic polyneuropathy, with long-term current use of insulin (HCC); OAB (overactive bladder); Polymyalgia rheumatica (HCC) Discharge Disposition: Discharged to home or Selfcare 11/25/2024 Travel 11/21/2024 Nurse Triage [facility] Call Center [address] [place] [phone] Justen Gale MD Advice Only; Urinary Frequency 11/21/2024 MyChart RX Renewal [facility] - Endocrinology - [place] [address] [place] [address] Annel Rod MD Medication Renewal Reviewed 11/21/2024 MyChart RX Renewal [facility] [address] [place] [address] Justen Gale MD Medication Renewal Declined 11/21/2024 MyChart RX Renewal [facility] [address] [place] [address] Pili Elkins APRN, CNP Medication Renewal Reviewed 11/20/2024 [facility] [address] [place] [address] [phone] Justen Gale MD Shortness of Breath 11/20/2024 [facility]phone [facility] [address] [place] [address] [phone] Justen Gale MD Post-Hospital Follow-up ([facility]) 11/14/2024 [facility] [address] [place] [address] [phone] Justen Gale MD Follow-up 11/14/2024 [facility] [place] [phone] Justen Gale MD 11/07/2024 [facility] [address] [place] [address] [phone] Justen Gale MD Advice Only; Fatigue; Shortness of Breath 11/06/2024 [facility] [place] [address] Justen Gale MD Medication Renewal Declined 11/05/2024 [facility] [place] [address] Justen Gale MD Medication Refill 10/28/2024 [facility]Chart [facility] [place] [address] Justen Gale MD Medication Renewal Reviewed 10/17/2024 [facility] [address] [place] [phone] Annel Rod MD Medication Refill 10/08/2024 [facility] [address] [place] [phone] Justen Gale MD Abdominal Pain 09/30/2024 MyChart RX Renewal [facility] [address] [place] [address] Dulce Wolff APRN, NETTA Medication Renewal Reviewed 09/29/2024 Nurse Triage [facility] Call Center [address] [place] [phone] Justen Gale MD Urinary Tract Infection 09/23/2024 Nurse Triage [facility] Call Center [address] [place] [phone] Justen Gale MD Breathing Problem; Pain 09/23/2024 Telephone [facility] [address] [place] [phone] Justen Gale MD Pain 09/11/2024 Telephone [facility] Central Call [address] [phone] Justen Gale MD Follow-up 09/06/2024 1:15 PM CDT Office Visit [facility] [address] [place] [address] Dulce Wolff APRN, NETTA Enlarged tonsils (Primary Dx); Polymyalgia rheumatica (HCC); Oral candidiasis; Edema, unspecified type Discharge Disposition: Discharged to home or Selfcare 09/06/2024 Travel 09/03/2024 Telephone [facility] [address] [place] [address] Justen Gale MD Follow-up 09/02/2024 Nurse Triage [facility] Call Center [address] [place] [address] [phone] Justen Gale MD Sore Throat from Last [...] = 0.6 oz pur e alcohol) [facility] Utilities Answer Date Recorded In the past 12 months has [employer], gas, oil, or water [employer] threatened to shut off services in your [...] Total Score - Questions 1-9 0 07/23 [place] of Occupat ional [facility] [...] in a mcc (including now)? No 08/06/2024 AUDIT-C Answer Date [...] Description 12/17/2024 3:30 PM CDT Office [facility] - Endocrinology - [place] [address] [place] [address] Annel Rod MD [address]2 [facility] [address] [place] [address] 05/29/2025 1:30 PM PROGRAMMABLE LOGIC CONTROLLER ASSEMBLER Office Visit [facility] - Family Medicine [facility] [address] [place] [address] Justen Gale MD [address]2 [facility] [address] [place] [address] Health Maintenance Due Date Last Done Comments [...] - ABDOMEN/PELVIS 10/03/2024 1 2:00 AM CDT [id number] CONSULT 09/27/2024 12:00 AM CDT EXTERNAL ENT [...] US ORDERABLES Final Result Performing Organization Address [facility] de Phone Number SCAN * US - LOWER EXTREMITY (11/18/2024 12:00 AM CDT) 11/18/2024 us Provider Scan IMG US ORDERABLES Final Result Performing Organization Address [facility] de Phone Number SCAN * XR - UPPER EXTREMITY (11/18/2024 12:00 AM CDT) Only the most recent of2 resultswithin the time period is included. 11/18/2024 us Provider Scan IMG DIAGNOSTIC ORDERABLES Final Result Performing Organization Address [facility] de Phone Number SCAN * CARDIOLOGY CONSULT (11/18/2024 12:00 AM CDT) 11/18/2024 us Provider Scan GENERIC SCAN ORDERS CONSULT Deann l Result Performing Organization Address [facility] de Phone Number SCAN * XR - CHEST (11/15/2024 12:00 AM CDT) Only the most recent of2 resultswithin the time period is included. 11/15/2024 us Provider Scan IMG DIAGNOSTIC ORDERABLES Final Result Performing Organization Address [facility] de Phone Number SCAN * EKG SCAN (11/07/2024 12:00 AM CDT) 11/07/2024 us Provider Scan IMG ECG ORDERABLES Final Result Performing Organization Address [facility] de Phone Number RESULTING AGENCY * URINALYSIS (UA) RANDOM (11/07/2024 12:00 AM CDT) 11/07/2024 us Provider Scan URINE ORDERABLES Final Result Performing Organization Address [facility] de Phone Number SCAN * THYROID STIMULATING HORMONE (TSH) (11/07/2024 12:00 AM CDT) 11/07/2024 us Provider Scan CHEMISTRY ORDERABLES Final Resul t Performing Organization Address [facility] de Phone Number SCAN * APTT (PTT) (11/07/2024 12:00 AM CDT) 11/07/2024 us Provider Scan HEMATOLOGY ORDERABLES Final Resu lt Performing Organization [facility] de Phone Number SCAN * PROTIME (PT) (PROTHROMBIN TIME) (11/07/2024 12:00 AM CDT) INR 2.0 SCAN 11/07/2024 us Provider Scan HEMATOLOGY ORDERABLES Final Resu lt Performing Organization [facility] de Phone Number SCAN * MAGNESIUM (MG) (11/07/2024 12:00 AM CDT) 11/07/2024 us Provider Scan CHEMISTRY ORDERABLES Final Resul t Performing Organization [facility] de Phone Number SCAN * LACTIC ACID (LACTATE) (11/07/2024 12:00 AM CDT) 11/07/2024 us Provider Scan CHEMISTRY ORDERABLES Final Resul t Performing Organization Address [facility] de Phone Number SCAN * CMP (COMPREHENSIVE METABOLIC PANEL) (11/07/2024 12:00 AM CDT) 11/07/2024 us Provider Scan CHEMISTRY ORDERABLES Final Resul t Performing Organization Address [facility] de Phone Number SCAN * COMPLETE BLOOD COUNT (CBC) WITH DIFF (11/07/2024 12:00 AM CDT) 11/07/2024 us Provider Scan HEMATOLOGY ORDERABLES Final Resu lt Performing Organization Address [facility] de Phone Number SCAN * B-TYPE NATRIURETIC PEPTIDE (BNP) (11/07/2024 12:00 AM CDT) 11/07/2024 us Provider Scan CHEMISTRY ORDERABLES Final Resul t Performing Organization Address [facility] de Phone Number SCAN * INTERNAL MEDICINE CONSULT (10/17/2024 12:00 AM CDT) Only the most recent of2 resultswithin the time period is included. 10/17/2024 us Provider Scan GENERIC SCAN ORDERS CONSULT Deann l Result Performing Organization Address [facility] de Phone Number SCAN * CT - ABDOMEN/PELVIS (10/15/2024 12:00 AM CDT) Only the most recent of4 resultswithin the time period is included. 10/15/2024 us Provider Scan IMG CT ORDERABLES Final Result Performing Organization Address [facility] de Phone Number SCAN * SURGERY CONSULT (10/12/2024 12:00 AM CDT) 10/12/2024 us Provider Scan GENERIC SCAN ORDERS CONSULT Deann l Result Performing Organization Address [facility] de Phone Number SCAN * CT - SPINE (10/06/2024 12:00 AM CDT) 10/06/2024 us Provider Scan IMG CT ORDERABLES Final Result Performing Organization Address [facility] de Phone Number SCAN * EXTERNAL ENT REFERRAL (09/27/2024 12:00 AM CDT) 09/27/2024 July N Oehl OUTSOLE CEMENTER MACHINE, NEW AUTOS DELIVERY DRIVER OUTPT REFERRALS EXT/INT F inal Result Performing Organization Address [facility] de Phone Number SCAN * COM-OGGO-TMUXUK CONSULT (09/27/2024 12:00 AM CDT) 09/27/2024 Provider Scan GENERIC SCAN ORDERS CONSULT Deann l Result Performing Organization Address [facility] de Phone Number SCAN * PAIN CONSULT (09/19/2024 12:00 AM CDT) 09/19/2024 Justen Gale MD GENERIC SCAN ORDERS CONSULT F inal Result Performing Organization Address [facility] de Phone Number SCAN * HEMOGLOBIN, A1C (10/02/2023 12:00 AM CDT) HGB-A1C 7.8 SCAN 10/02/2023 Provider Scan CHEMISTRY ORDERABLES Final Resul t Performing Organization Address [facility] de Phone Number SCAN * HM COLONOSCOPY (01/09/2020) Genaro Jensen DO PROCEDURE/MINOR SURGICAL ORDERA BLES Final Result * AMB REFERRAL TO PODIATRY (08/13/2019) us Alvarez Mensah MD OUTPATIENT REFERRALS Final Res ult * POCT STOOL, OCCULT BLOOD, DIAGNOSTIC (09/07/2018 1:20 PM CDT) OCCULT BLOOD, STOOL Negative Negative, Other POC HEMOCULT CONTROL Industrial Economist Pass 09/07/2018 1:20 PM CDT us Pili Elkins OUTSOLE CEMENTER MACHINE, NEW AUTOS DELIVERY DRIVER POINT OF CARE TESTIN G (MANUAL) Final Result from Last 3 Months or Most Recently Relevant to Health Maintenance Insurance MEDICAID [place] MEDICARE C [facility] Care Teams Lean Manager Relationship Specialty Start Date End Date Justen Gale MD [address] [place] [address] PCP - General Family Medicine 10/17/17 David Roberts APRN, NEW AUTOS DELIVERY DRIVER [address] [place] [address] Nurse Practitioner Advanced Practice Nurse 01/31/22 Annel Rod MD [address] [address] Consulting Physician Endocrinology 07/01/22
--- OUTSIDE RECORDS SUMMARY | 2024-11-27 03:16 | XMS_ITS | Encounter Summary ---
Author Organization [facility] Address [address] [place] [address] Phone Care Team Providers Care Electrical Repairer Name Role Phone Justen Gale MD Primary Care Provider David Roberts APRN, SENIOR MECHANICAL DEVELOPMENT ENGINEER Unavailable [phone] Annel Rod MD Unavailable Reason for Visit * Reason Onset Date Comments Advice Only 11/21/2023 Encounter Details Date Type Department Care Team (Late st Contact Info) Description 11/21/2023 Telephone [facility] [address] [place] [address] Justen Gale MD [address] [address] Advice Only Social History Tobacco Use Types [...] 11/21/2023 3:17 PM CDT RFC: Alejandra from [facility] is calling to state that patient is listed as being a diabteic but is not on a statin. Please call Alejandra (relationship to patient n/a) back regarding above referenced patient. Patient's Provider is Justen Gale MD . documented in this encounter Plan of Treatment Upcoming Encounters Date Type Department Care Team (Late st Contact Info) Description 12/17/2024 3:30 PM CDT Office Visit [facility] - Endocrinology - [place] [address] [place] [address] Annel Rod MD [address]2 [facility] [address] [place] [address] 05/29/2025 1:30 PM ASSISTANT DESIGNER Office Visit [facility] - Family Medicine - [place] [address] [place] [address] Justen Gael MD [address]2 [facility] [address] [place] [address] documented as of this encounter Visit Diagnoses Not on filedocumented in this encounter Additional Health Concerns Infection Onset Date Last Indicated Resolved Time COVID - 19 08/01/2024 08/01/2024 08/01/2024 3:20 PM CDT Assessment Noted Time PHQ-9 Depression Total Score: 8 01/18/20 23 2:24 PM CDT documented as of this encounter Care Teams Electrical Repairer Relationship Specialty Start Date End Date Justen Gale MD [address]2 [facility] [address] [place] [address] PCP - General Family Medicine 10/17/17 David Roberts APRN, NETTA [address] [place] [address] Nurse Practitioner Advanced Practice Nurse 01/31/22 Annel Rod MD [address]2 [facility] [address] [place] [address] Consulting Physician Endocrinology 07/01/22 documented as of this encounter
--- OUTSIDE RECORDS SUMMARY | 2024-11-27 03:16 | XMS_ITS | Clinical Summary ---
Author Organization [facility] Address [facility] [place] [address] Care Team Providers Care Network Development Coordinator Name Role Phone Meena Bansal MD Unavailable [phone] Justen Gale MD Primary Care Provider [phone] Allergies Active Allergy Reactions Criticality Noted Date [...] reflux disease 09/05/2020 Malignant tumor of breast ([facility]) 08/22 Knee pain 09/05/2020 Other [...] 03/18/2018 Assessment & Plan (03/18/2018 2:55 AM KILN TRANSFER OPERATOR): Acute, patient reported as epigastric pain however may be atypical presentation. Troponins negative x2. Also in differential is GERD, PUD - Admit to observation -Follow-up troponins -Monitor vitals -N.p.o. at midnight - Stress echo in a.m. - Consider cardiology consult based on results of stress test -Begin Protonix Epigastric pain 03/18/2018 Assessment & Plan (03/18/2018 5:39 AM KILN TRANSFER OPERATOR): Acute, non radiating, worsens with lying down, [...] Speech impairment 01/30/2018 CVA (cerebral vascular accident) ([facility] HHS/ C) 01/24/2018 Neck pain on right side 12/01/2017 Anxiety and depression 11/12/2017 Chronic anticoagulation 11/09/2017 Constipation 11/09/2017 Uncontrolled type 2 diabetes mellitus with hyperglycemia, with long-term current use of insulin ([facility]) 11/06/2017 long term care pharmacist (current) use 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 inhibitors 10/23/2017 Lumbosacral [...] upper- 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 ([facility] HHS/HCC) 10/17/2017 Assessment & Plan (08/31/2018 12:24 AM CDT): S/p masectomy. -continue exemestane Acute deep vein thrombosis ( DVT) of proximal vein of right lower extremity ([facility]) 10/17/2017 Dysuria 10/17/2017 Hyperthyroidism 10/17/2017 Cancer of overlapping sites of left female breast ([facility]) 10/13/2017 Syncope 09/29/2017 High blood pressure 08/22/2017 Overview (09/05/2020): Last Assessment & Plan: On lisinopril Last Assessment & Plan: On lisinopril Assessment & Plan (08/30/2018 9:57 PM CDT): Chronic. Controlled. -continue home medications Assessment & Plan (03/18/2018 2:51 AM KILN TRANSFER OPERATOR): Chronic, BPs currently 127/78 - To new home meds Morbid obesity with BMI of 50.0-59.9, adult 04/2017 Sepsis ([facility]) 08/22/2017 Type 2 diabetes mellitus ([facility]) 08/22 Overview (09/05/2020): Last Assessment & Plan: Hold janument. Start on SSI and accucheks Assessment & Plan (08/30/2018 10:01 PM CDT): Chronic. Controlled. -continue home insulin regimen of lantus 50 units q am -lispro 20 units with breakfast and lunch. 22 units with dinner. Assessment & Plan (03/18/2018 2:53 AM KILN TRANSFER OPERATOR): Chronic, patient reports medical compliance with 50 units of Lantus daily and 15 units of Humalog before meals. No recent HbA1c - Monitor POC glucose -[place]erry home regimen - Consider sliding scale insulin -Follow-up HbA1c Bronchitis 08/20/2017 LUL (obstructive sleep apnea) 08/01/2017 Assessment & Plan (03/18/2018 2:54 AM KILN TRANSFER OPERATOR): Chronic, on CPAP at home - Continue home CPAP History of DVT (deep vein thrombosis) 08/01/2017 Assessment & Plan (03/18/2018 2:54 AM KILN TRANSFER OPERATOR): Chronic - Continue home Xarelto Chest pressure 08/01/2017 Diet-controlled diabetes mellitus ([facility] HHS/H CC) 08/01/2017 History of pulmonary embolism 08/01/2017 Hyponatremia 08/01/2017 Positive blood culture 08/01/2017 Acute pharyngitis 07/27/2017 Generalized weakness 07/27/2017 Nausea and vomiting 07/26/2017 Overview (09/05/2020): Overview: Overview: Added automatically from request for surgery [id number] Overview: Added automatically from request for surgery [id number] Added automatically from request for surgery [id number] Neuropathy 07/05/2017 History of breast cancer 02/06/2017 Pulmonary embolism ([facility]) 08/09/2016 Overview (09/05/2020): Last Assessment [...] syndrome Assessment & Plan (03/18/2018 2:54 AM KILN TRANSFER OPERATOR): Chronic -Continue home ropinirole Pain of lower [...] Recorded In the past 12 months has [employer] gas, oil, or water [employer] threatened to shut off services in your [...] Sexual Orientation Straight 03/18/2018 3: 01 AM KILN TRANSFER OPERATOR Last Filed Vital Signs Vital Sign Reading [...] 8.0(H) <5.7 % 10/14/2023 5:50 AM CDT [facility] Comment: ADA GUIDELINES 2010 5.7 TO 6.4% INCREASED RISK OF DIABETES > OR = 6.5% CONSISTENT WITH DIABETES ESTIMATED AVG GLUCOSE 183 mg/dL 10/14/2023 5:50 AM CDT [facility] 10/14/2023 3:40 AM CDT us Peggy Bland MD LABORATORY Final Result [facility] [address] [place] [address], [place] [phone] * LIPID PANEL (10/14/2023 3:40 AM CDT) CHOLESTEROL 164 <200 MG/DL 10/14/2023 4:31 AM CDT [facility] TRIGLYCERIDES 114 <150 MG/DL 10/14/2023 4:31 AM CDT [facility] HDL 46 >40.0 MG/DL 10/14/2023 4:31 AM CDT [facility] LDL (CALCULATED) 95 <100 MG/DL 10/14/19 4:31 AM CDT [facility] NON HDL CHOLESTEROL 118 <130 MG/DL 10/13 4:31 AM T [facility] CHOL/HDL RATIO 3.6 0.0 - 4.5 10/14/2023 4:31 AM T [facility] VLDL CALCULATION 23 5 - 55 MG/DL 10/14/2023 4:31 AM CDT [facility] LIPID INTERPRETATION 10/14/2023 4:31 AM T [facility] Comment: [facility] CON[facility]ENS[facility] REPORT RECOMMENDATIONS: ADULT CHILD LOW RISK: CHOLESTEROL <200 <170 TRIGLYCERIDE <150 --- HDL >=60 --- LDL <100 <110 BORDERLINE: CHOLESTEROL 200-239 170-199 TRIGLYCERIDE 150-199 --- HDL 40-59 --- LDL 100-159 110-129 HIGH RISK: CHOLESTEROL >=240 >=200 TRIGLYCERIDE >=200 --- HDL <40 --- LDL >=160 >=130 10/14/2023 3:40 AM CDT Peggy Bland MD LABORATORY Final Result [facility] [address] [place] [address], from Last 3 Months or Most Recently Relevant to Health Maintenance Insurance [facility] [id number] [facility] Advance Directives * Full Code (Latest Code [...] 2:42 AM 03/18/2018 4:50 PM Care Teams Network Development Coordinator Relationship Specialty Start Date End Date Justen Gale MD [address] [address] PCP - General FAMILY PRACTICE 08/20/17 Meena Bansal MD [address] [facility] [address] [place] [address] [place] Director Of Oncology CARDIOVASCULAR DISEASE 04/24/16
--- OUTSIDE RECORDS SUMMARY | 2024-11-27 03:16 | XMS_ITS | Clinical Summary ---
Author Organization [facility] Address [address] [place] [address] Phone Care Team Providers Care Intern Architect Name Role Phone Justen Gale MD Primary Care Provider [phone] Allergies Active Allergy Reactions Criticality Noted Date [...] - 6.0 % 09/29/2017 10:[address] CD[address] [facility] EST. AVG GLUCOSE, A1C 186 mg/dL 09/29/2017 10:28 AM CDT Harri [facility] Blood Venipuncture / Unknown 09/28/2017 8:41 PM CDT 09/28/2017 8:46 PM CDT Narrative [facility] - 09/29/2017 10:28 AM CDT HGB A1C INTERPRETATION NORMAL: <5.7% PRE-DIABETES: 5.7 - 6.4% DIABETES: 6.5% OR GREATER us Francisco Castaneda MD CHEMISTRY ORDERABLES Final Resul t [facility] [employer]# [id number] [address] [facility] [place] [address] * (ABNORMAL) LIPID PANEL (09/28/2017 8:41 PM CDT) CHOLESTEROL 174 <200 mg/dL 09/30/2017 2:45 AM CDT [facility] TRIGLYCERIDE 109 <150 mg/dL 09/30/2017 2:45 AM CDT [facility] HDL 45 40 - 59 mg/dL 09/30/2017 2:45 AM CDT [facility] LDL CALCULATED 107(H) <100 mg/dL 09/30/2017 2:45 AM CDT [facility] NON-HDL CHOLESTEROL 129 <130 mg/dL 09/30/2017 2:45 AM CDT [facility] Blood Venipuncture / Unknown 09/28/2017 8:41 PM CDT 09/28/2017 8:46 PM CDT Narrative [facility] - 09/30/2017 2:45 AM CDT [...] CHEMISTRY ORDERABLES Final Resul t [facility] [id number] 5 [facility] [place] [address] from Last 3 Months or Most Recently Relevant to Health Maintenance Insurance Advance Directives For more information, please contact: [phone] * Full Code (Latest Code Status on File) Date Activated Date Inactivated Comments 09/29/2017 7:45 AM 09/30/2017 9:14 PM * Full Code Date Activated Date Inactivated Comments 09/29/2017 1:25 AM 09/29/2017 7:45 AM Care Teams Intern Architect Relationship Specialty Start Date End Date Justen Gale MD [address] [facility] [address] [place] [address] PCP - General Cardiovascular Disease 09/14/17
--- OUTSIDE RECORDS SUMMARY | 2024-11-27 03:16 | XMS_ITS | Encounter Summary ---
Author Organization [facility] Address [address] [place] [address] Phone Care Team Providers Care Refrigerator Crater Name Role Phone Justen Gale MD Primary Care Provider David Roberts APRN, RN PROGRESSIVE CARE UNIT Unavailable Annel Rod MD Unavailable Reason for Visit * Reason Comments Medication Refill Encounter Details Date Type Department Care Team (Late st Contact Info) Description 03/05/2023 Refill [facility] - [facility] Medicine [facility] #2 [place] [address] Pili Elkins APRN, RN PROGRESSIVE CARE UNIT #[address] [address] Medication Refill Social History Tobacco [...] discontinued on 10/19/2022 by Justen Gale MD ETIC ASSISTANT documented in this encounter Plan of Treatment Upcoming Encounters Date Type Department Care Team (Late st Contact Info) Description 12/17/2024 3:30 PM CDT Office Visit [facility] - Endocrinology - [place] #2 [place] [address] Annel Rod MD #2 [facility] [address] [place] [address] 05/29/2025 1:30 PM DIETETIC ASSISTANT Office Visit [facility] - Family Medicine - [place] #2 [place] [address] Justen Gale MD #2 [facility] [address] [place] [address] documented as of this encounter Visit Diagnoses Diagnosis Essential hypertension Unspecified essential hypertension documented in this encounter Additional Health Concerns Infection Onset Date Last Indicated Resolved Time COVID - 19 08/01/2024 08/01/2024 08/01/2024 3:20 PM CDT Assessment Noted Time PHQ-9 Depression Total Score: 8 01/18/20 23 2:24 PM CDT documented as of this encounter Care Teams Refrigerator Crater Relationship Specialty Start Date End Date Justen Gale MD #2 [facility] [address] [place] [address] PCP - General Family Medicine 10/17/17 David Roberts APRN, RN [facility] UNIT #2 [place] [address] Nurse Practitioner Advanced Practice Nurse 01/31/22 Annel Rod MD #[address] [phone] Consulting Physician Endocrinology 07/01/22 documented as of this encounter
--- OUTSIDE RECORDS SUMMARY | 2024-11-27 03:16 | XMS_ITS | Encounter Summary ---
Author Organization [facility] Address [address] [place] [address] Phone Care Team Providers Care Alliance Director Name Role Phone Justen Gale MD Primary Care Provider David Roberts APRN, CLIMATOLOGIST Unavailable Annel Rod MD Unavailable Reason for Visit * Reason Onset Date Comments Medication Refill 08/06/2020 Encounter Details Date Type Department Care Team (Late st Contact Info) Description 08/06/2020 Refill [facility] - Family [facility] #2 [facility] [place] [id number] Justen Gale MD #[address] [address] Medication Refill Social History Tobacco Use Types [...] Outpatient Visits 2 weeks ago [facility] APN, CLIMATOLOGIST 2 months ago Increased urinary [facility] P[facility] Mueller APN, CLIMATOLOGIST 5 months ago Urinary frequency [facility] Pili Mueller APN, CLIMATOLOGIST 8 months ago Type 2 diabetes mellitus with diabetic polyneuropathy, with long- term current use of insulin (HCC) [facility] Pili Mueller APN, CLIMATOLOGIST 9 months ago [facility] Justen Urbano MD Upcoming Appointments Future Appointments In 6 days Pili Elkins APN, [facility]ATOLOG[facility] Elias Mcgee [facility] DIRECTOR SPEECH AND HEARING - Recent and Past Visits Recent Visits Date Type Provider Dept 07/20/20 Office Visit Pili Elkins APN, CLIMATOLOGIST [facility] 06/05/20 Office Visit Pili Elkins APN, NETTA [facility] 02/17/20 Office Visit Pili Elkins APN, NETTA [facility] 12/03/19 Office Visit Pili Elkins APN, NETTA [facility] 11/05/19 Telemedicine Justen Gale MD [facility] 07/25/19 Telemedicine [facility] Showing recent visits within past 460 [...] Description 12/17/2024 3:30 PM CDT Office Visit [facility] Medical [facility] - Endocrinology - [place] [address] [place] [address] Annel Rod MD #[address] [place] [address] 05/29/2025 1:30 PM MINING PROFESSIONALS Office Visit [facility] - Family Medicine - [place] [address] [place] [address] Justen Gale MD #2 [facility] [address] [place] [address] documented as of this encounter Visit Diagnoses Not on filedocumented in this encounter Additional Health Concerns Infection Onset Date Last Indicated Resolved Time COVID - 19 08/01/2024 08/01/2024 08/01/2024 3:20 PM CDT Assessment Noted Time PHQ-9 Depression Total Score: 0 07/21/19 21 3:00 PM CDT documented as of this encounter Care Teams Alliance Director Relationship Specialty Start Date End Date Justen Gale MD #2 [facility] [address] [place] [address] PCP - General Family Medicine 10/17/17 David Roberts APRN, CLIMATOLOGIST #2 [place] [address] Nurse Practitioner Advanced Practice Nurse 01/31/22 Annel Rod MD #2 [facility] [address] [place] [address] Consulting Physician Endocrinology 07/01/22 documented as of this encounter
--- OUTSIDE RECORDS SUMMARY | 2024-11-27 03:16 | XMS_ITS | Encounter Summary ---
Author Organization [facility] Address [address] [place] [address] Phone Care Team Providers Care Business Law Professor Name Role Phone Justen Gale MD Primary Care Provider David Roberts APRN, YEAST FERMENTATION ATTENDANT Unavailable Annel Rod MD Unavailable Reason for Visit * Reason Comments Medication Refill Encounter Details Date Type Department Care Team (Late st Contact Info) Description 04/13/2023 Refill [facility] - Endocrinology - [place] #2 [place] [address] Annel Rod MD #[address] [address] Medication Refill Social History Tobacco [...] Jennifer Wang, RN - 04/14/2023 10:00 AM MIXED CROP AND LIVESTOCK FARM WORKER Requested Prescriptions Pending Prescriptions Disp Refills ??? Continuous Blood Gluc Sensor (FreeStyle Eileen 2 Sensor) Misc [Pharmacy Med Name: FREESTYLE EILEEN 2 SENSOR] 6 Each 1 Sig: APPLY 1 SENSOR AND WEAR FOR 14 DAYS TO CHECK BLOOD SUGAR Next appt: 05/30/2023 D CROP AND LIVESTOCK FARM WORKER documented in this encounter Plan of Treatment Upcoming Encounters Date Type Department Care Team (Late st Contact Info) Description 12/17/2024 3:30 PM CDT Office Visit [facility] - Endocrinology - [place] #2 [place] [address] Annel Rod MD #2 [facility] [address] [place] [address] 05/29/2025 1:30 PM MIXED CROP AND LIVESTOCK FARM WORKER Office Visit [facility] - Family Medicine [facility] #2 [place] [address] Justen Gale MD #2 [facility] [address] [place] [address] documented as of this encounter Visit Diagnoses Not on filedocumented in this encounter Additional Health Concerns Infection Onset Date Last Indicated Resolved Time COVID - 19 08/01/2024 08/01/2024 08/01/2024 3:20 PM CDT Assessment Noted Time PHQ-9 Depression Total Score: 8 01/18/20 23 2:24 PM CDT documented as of this encounter Care Teams Business Law Professor Relationship Specialty Start Date End Date Justen Gale MD #2 [facility] [address] [place] [address] PCP - General Family Medicine 10/17/17 David Roberts APRN, NETTA #2 [place] [address] Nurse Practitioner Advanced Practice Nurse 01/31/22 Annel Rod MD #2 [facility] [address] [place] [address] Consulting Physician Endocrinology 07/01/22 documented as of this encounter
--- OUTSIDE RECORDS SUMMARY | 2024-11-27 03:16 | XMS_ITS | Encounter Summary ---
Author Organization [facility] Address [address] [place] [address] Phone Care Team Providers Care Nurse Sexual Assault Name Role Phone Justen Gale MD Primary Care Provider David Roberts APRN, MECHANICAL INSPECTOR Unavailable [phone] Annel Rod MD Unavailable Reason for Visit * Reason Onset Date Comments Breathing Problem 08/07/2024 Muscle Pain 08/07/2024 Encounter Details Date Type Department Care Team (Late st Contact Info) Description 08/07/2024 Nurse Triage [facility] [address] [place] [address] Justen Gale MD #[address] [address] Breathing Problem; Muscle Pain Social History Tobacco Use Types Packs/Day Years Used Date Smoking Tobacco: Never Smokeless Tobacco: Never Alcohol Use Standard Drinks/Week Comments No 0 (1 standard drink = 0.6 oz pur e alcohol) [facility] Utilities Answer Date Recorded [...] any clubs o r organizations such as shinto groups, unions, fraternal or athletic groups, or [...] any time in the past 12 m [facility], were you homeless or living [...] She reports this was discussed with the desktop analyst and provider was to be notified in [...] Encouraged caller to bring cell phone and conductor pullman to contact EMS 911 if symptoms worsen [...] (e.g., disoriented, slurred speech) Protocols used: Breathing [id number] * Telephone Encounter - Neha Tomlinson - 08/07/2024 1:30 PM CDT Symptoms: Altered Mental Status, Body Aches, Breathing Trouble Outcome: Warm transfer to an emergent RN NOW! Reason: Trouble walking The caller accepted this outcome. documented in this encounter Plan of Treatment Upcoming Encounters Date Type Department Care Team (Late st Contact Info) Description 12/17/2024 3:30 PM CDT Office Visit [facility] - Endocrinology - [place] #2 [place] [address] Annel Rod MD #2 [facility] [address] [place] [address] 05/29/2025 1:30 PM AIRFREIGHT OPERATIONS AGENT Office Visit [facility] - Family Medicine - [place] #2 [place] [address] Justen Gale MD #2 [facility] [address] [place] [address] documented as of this encounter Visit Diagnoses Not on filedocumented in this encounter Additional Health Concerns Assessment Noted Time PHQ-9 Depression Total Score: 0 08/02/19 25 1:09 PM CDT documented as of this encounter Care Teams Nurse Sexual Assault Relationship Specialty Start Date End Date Justen Gale MD #2 [facility] [address] [place] [address] PCP - General Family Medicine 10/17/17 David Roberts APRN, MECHANICAL INSPECTOR #2 [place] [address] Nurse Practitioner Advanced Practice Nurse 01/31/22 Annel Rod MD #[address] [address] Consulting Physician Endocrinology 07/01/22 documented as of this encounter
--- OUTSIDE RECORDS SUMMARY | 2024-11-27 03:16 | XMS_ITS | Encounter Summary ---
Author Organization [facility] Address [address] [place] [address] Phone Care Team Providers Care Quality Process Lead Name Role Phone Justen Gale MD Primary Care Provider David Roberts APRN, COPYWRITER Unavailable [phone] Annel Rod MD Unavailable Reason for Visit * Reason Comments Medication Refill Encounter Details Date Type Department Care Team (Late st Contact Info) Description 03/02/2023 Refill [facility] - Family [facility] #2 [place] [address] Justen Gale MD #[address] [address] Medication Refill Social History Tobacco Use Types [...] Tamika Villarreal RN - 03/02/2023 8:51 AM PROGRAMMER OR ANALYST Medication failed the protocol, provider to review [...] Visit Catrina Quiñonez MD [facility] 09/16/22 Office Visit Pili Elkins APRN, CNP [facility] 07/05/22 Office Visit Pili Elkins APRN, NETTA [facility] 05/02/22 Office Visit Justen Gale MD [facility] 03/03/22 Office Visit Pili Elkins APRN, NETTA [facility] Showing recent visits within past 365 days and meeting all other requirements Future Appointments No visits were found meeting these conditions. Showing future appointments within next 90 days and meeting all other requirements RAMMER OR ANALYST documented in this encounter Plan of Treatment Upcoming Encounters Date Type Department Care Team (Late st Contact Info) Description 12/17/2024 3:30 PM CDT [facility] Visit [facility] - Endocrinology - [place] #2 [place] [address] Annel Rod MD #[address] [phone] 05/29/2025 1:30 PM PROGRAMMER OR ANALYST Office Visit [facility] - Family [facility] #2 [place] [address] Justen Gale MD #[address] [address] documented as of this encounter Visit Diagnoses Not on filedocumented in this encounter Additional Health Concerns Infection Onset Date Last Indicated Resolved Time COVID - 19 08/01/2024 08/01/2024 08/01/2024 3:20 PM CDT Assessment Noted Time PHQ-9 Depression Total Score: 8 01/18/20 23 2:24 PM CDT documented as of this encounter Care Teams Quality Process Lead Relationship Specialty Start Date End Date Justen Gael MD [address] [address] PCP - General Family Medicine 10/17/17 David Roberts APRN, COPYWRITER #2 [facility] [place] [place] [address] Nurse Practitioner Advanced Practice Nurse 01/31/22 Annel Rod MD #[address] [address] Consulting Physician Endocrinology 07/01/22 documented as of this encounter
--- OUTSIDE RECORDS SUMMARY | 2024-11-27 03:16 | XMS_ITS | Encounter Summary ---
Author Organization [facility] Address [address] [place] [address] Phone Care Team Providers Care Test Architect Name Role Phone Liu Jerez MD Unavailable [phone] Albert Corbin MD Unavailable [phone] Justen Gale MD Primary Care Provider Khris Arthur MD Unavailable [phone] Ko Melendez MD Unavailable John Paul Moyer MD Unavailable Annel Rod MD Unavailable Anali MARSHALL MD, Carlos M. Unavailable [phone] Encounter Details Date Type Department Care Team [...] Legal Sex Female 12:24 AM DIRECTOR OF SPORTS MEDICINE Gender Identity Not on file Sexual [...] COVID: Recovered 02/10/2022 02/10/2022 06/10/2022 3:05 AM DIRECTOR OF SPORTS MEDICINE Exposure, COVID-19 Comment:Added automatically based on COVID19 lab answers indicating exposure risk 02/11/2022 02/11/2022 02/15/2022 9:06 AM C DT COVID: Suspected 05/14/2022 05/14/2022 05/14/2022 10:41 AM DIRECTOR OF SPORTS MEDICINE COVID: Suspected 06/07/2022 06/07/2022 06/07/2022 12:28 PM DIRECTOR OF SPORTS MEDICINE COVID: Suspected 06/21/2022 06/21/2022 06/21/2022 2:12 AM DIRECTOR OF SPORTS MEDICINE COVID: Suspected 10/05/2022 10/05/2022 10/05/2022 7:40 PM CDT COVID: Suspected 01/04/2024 01/04/2024 01/04/2024 10:30 PM CDT COVID: Suspected 02/14/2024 02/14/2024 02/15/2024 12:36 AM CDT COVID: Suspected 07/01/2024 07/01/2024 07/01/2024 2:53 PM CDT COVID: Suspected 07/01/2024 07/01/2024 07/02/2024 3:05 AM CDT documented as of this encounter Care Teams Test Architect Relationship Specialty Start Date End Date Justen Gale MD 2 [facility] [address] [place] [address] PCP - General 10/09/17 Liu Jerez MD Consulting Physician Gastroenterology 07/28/17 [place] [address] [facility] [address] [place] [address] Consulting Physician Pulmonary Disease 08/03/17 [place] [address] [place] [address] [place] [address] Medical Oncologist/Plastic Hospital Products Assembler Medical Oncology 10/23/17 [place] [address] [address] Surgeon Orthopedic Surgery 10/23/17 [place] [address] [facility] [address] [place] [address] Consulting Physician Pain Management 10/23/17 [place] [address] [address] Referring Physician General Surgery 01/26/18 [place] [address] [facility] [address] [place] [address] Consulting Physician Neurology 01/26/18 documented as of this encounter
--- OUTSIDE RECORDS SUMMARY | 2024-11-27 03:16 | XMS_ITS | Encounter Summary ---
Author Organization [facility] Address [address] [place] [address] Phone Care Team Providers Care Organ Pipe Finisher Name Role Phone Justen Gale MD Primary Care Provider [phone] David Roberts APRN, MAINTENANCE WORKER SWIMMING POOL Unavailable Annel Rod MD Unavailable Reason for Visit * Reason Comments Medication Refill Encounter Details Date Type Department Care Team (Late st Contact Info) Description 10/24/2022 Refill [facility] - Family Medicine [facility] #2 [place] [address] Pili Elkins APRN, MAINTENANCE WORKER [employer]IMMING POOL #[address] [address] Medication Refill Social History Tobacco [...] Description 12/17/2024 3:30 PM CDT Office Visit [facility] Endocrinology [facility] #2 [place] [address] Annel Rod MD #2 [facility] [address] [place] [address] 05/29/2025 1:30 PM CHAIRMAN AND CEO Office Visit [facility] Family Medicine [facility] #2 [place] [address] Justen Gale MD #2 [facility] [address] [place] [address] documented as of this encounter Visit Diagnoses Diagnosis Essential hypertension Unspecified essential hypertension documented in this encounter Additional Health Concerns Infection Onset Date Last Indicated Resolved Time COVID - 19 08/01/2024 08/01/2024 08/01/2024 3:20 PM CDT Assessment Noted Time PHQ-9 Depression Total Score: 0 09/17/19 23 11:00 AM CDT documented as of this encounter Care Teams Organ Pipe Finisher Relationship Specialty Start Date End Date Justen Gale MD #[address] [address] PCP - General Family Medicine 10/17/17 David Roberts PIPEMAN, MAINTENANCE WORKER [employer] #2 [place] [address] Nurse Practitioner Advanced Practice Nurse 01/31/22 Annel Rod MD #[address] [address] Consulting Physician Endocrinology 07/01/22 documented as of this encounter
--- OUTSIDE RECORDS SUMMARY | 2024-11-27 03:16 | XMS_ITS | Encounter Summary ---
Author Organization [facility] Address [address] [place] [address] Phone Care Team Providers Care Venetian Blind Cleaner Name Role Phone Justen Gale MD Primary Care Provider [phone] David Roberts APRN, KEY RINGER Unavailable Annel Rod MD Unavailable Reason for Visit * Reason Comments Medication Refill Encounter Details Date Type Department Care Team (Late st Contact Info) Description 07/12/2022 Refill [facility] - Family Medicine [facility] #2 [place] [address] Justen Gale MD #[address] [address] Medication Refill Social History Tobacco Use Types [...] 07/05/22 Office Visit Pili Elkins APRN, NETTA [facility] 05/02/22 Office Visit Justen Gale MD [facility] 03/03/22 Office Visit Pili Elkins APRN, KEY RINGER [facility] [place] 01/03/22 Office Visit Dannielle Berg PAC [facility] [place] 12/07/21 Office Visit Pili Elkins APRN, NETTA [facility] [place] 11/09/21 Office Visit Pili Elkins APRN, NETTA [facility] [place] 10/08/21 Office Visit Angelito Alegria APRN, NETTA [facility] [place] 08/30/21 [facility] Show[facility] recent visits within past 365 days and meeting all other requirements Future Appointments No visits were found meeting these conditions. Showing future appointments within next 90 days and meeting all other requirements documented in this encounter Plan of Treatment Upcoming Encounters Date Type Department Care Team (Late st Contact Info) Description 12/17/2024 3:30 PM CDT Office Visit [facility] Endocrinology [facility] #2 [place] [address] Annel Rod MD #[address] [address] 05/29/2025 1:30 PM ELECTRONIC WARFARE OFFICER Office Visit [facility] Family Medicine [facility] #2 [place] [address] Justen Gale MD #[address] [address] documented as of this encounter Visit Diagnoses Not on filedocumented in this encounter Additional Health Concerns Infection Onset Date Last Indicated Resolved Time COVID - 19 08/01/2024 08/01/2024 08/01/2024 3:20 PM CDT Assessment Noted Time PHQ-9 Depression Total Score: 0 07/21/19 21 3:00 PM CDT documented as of this encounter Care Teams Venetian Blind Cleaner Relationship Specialty Start Date End Date Justen Gale MD #[address] [address] PCP - General Family Medicine 10/17/17 David Roberts, HR ADVISOR, KEY RINGER #2 [place] [address] Nurse Practitioner Advanced Practice Nurse 01/31/22 Annel Rod MD #[address] [address] Consulting Physician Endocrinology 07/01/22 documented as of this encounter
--- OUTSIDE RECORDS SUMMARY | 2024-11-27 03:16 | XMS_ITS | Referral Summary ---
Author Organization [facility] Address [address] [place] [address] Care Team Providers Care Caponizer Name Role Phone Liu Jerez MD Unavailable Albert Corbin MD Unavailable [phone] Justen Gale MD Primary Care Provider Khris Arthur MD Unavailable [phone] Ko Melendez MD Unavailable John Paul Moyer MD Unavailable [phone] Annel Rod MD Unavailable Anali MARSHALL MD, Carlos M. 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) use 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 inhibitors 10/17/2019 Thyroid [...] use of insulin ([facility]) 10/23/2017 Assessment & Plan [...] 10/13/2017 Assessment & Plan (05/22/2024 12:29 PM GOVERNMENT GAUGER): -Hx stage II, ER positive, HER2 negative [...] 08/01/2017 Assessment & Plan (05/22/2024 12:33 PM GOVERNMENT GAUGER): -Hx LUL -Hospital provided CPAP ordered History of DVT (deep vein thrombosis) 08/01/2017 History of pulmonary embolism 08/01/2017 Generalized weakness 07/27/2017 Dyspnea 07/27/2017 Unintentional weight loss 07/27/2017 Acute cystitis without hematuria 07/27/2017 Nausea and vomiting 07/26/2017 Overview (07/28/2017): Added automatically from request for surgery [id number] Pulmonary embolism 08/09/2016 Assessment & Plan (10/23/2017 2:05 AM CDT): On Rivaroxaban Lymphedema of left upper extremity 08/09/2016 Assessment & Plan (05/25/2024 7:53 AM GOVERNMENT GAUGER): S/p L axillary lymph node dissection 2014, [...] syndrome Assessment & Plan (05/22/2024 11:18 AM GOVERNMENT GAUGER): -continue home Requip 5mg nightly Pain of lower extremity 03/12/2013 Overview (07/29/2016): Leg pain Essential hypertension Assessment & Plan (05/23/2024 10:42 AM GOVERNMENT GAUGER): -Chart history of HTN but not on meds -BP elevated on admission, likely some pain contributing -Monitor closely once pain under adequate control, discussed following up with PCP for this Chronic anticoagulation Restless leg syndrome 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 Type 2 diabetes mellitus without complication Assessment & Plan (05/24/2024 1:39 PM GOVERNMENT GAUGER): -Last Ha1c 8.4 in 2023, repeat 8.7 [...] In the past 12 months has e [employer], gas, oil, or water company threatened to [...] How often do you attend chur or faith services? More than 4 times per year [...] file Legal Sex Female 12:24 AM GOVERNMENT GAUGER Gender Identity Not on file Sexual Orientation [...] CDT HEMOGLOBIN A1C STAT 05/21/2024 4:20 PM GOVERNMENT GAUGER LIPID PANEL STAT 05/21/2024 4:20 PM GOVERNMENT GAUGER DEXA AXIAL SKELETON BONE DENSITY 1 OR [...] reviewed 2021. Testing performed by: [facility], [address] [place] [address]., [id number] Blood 07/01/2024 2:02 PM CDT 07/01/2024 2:12 PM CDT us Ilana Stevens MD LAB BLOOD ORDERABLES F inal Result [facility] [address] [facility] Department [place] [address] * (ABNORMAL) Hemoglobin A1c (05/21/2024 4:20 PM GOVERNMENT GAUGER) Hgb A1C 8.7(H) 4.0 - 5.6 % Estimated Average Glucose 203 mg/dL [facility] Comment: The ADA recommends reporting an estimated Average Glucose (eAG) with all Hemoglobin A1c results using the equation derived from a study of 507 normal and diabetic adults. Minority populations were underrepresented and children were not included. (Diabetes Care 2020; 43(S1): S66-S76). The eAG is not equivalent to a fasting glucose. Blood 05/21/2024 4:20 PM GOVERNMENT GAUGER 05/21/2024 4:55 PM GOVERNMENT GAUGER us Leo Henry MD LAB BLOOD ORDERABLES Final Result [facility] [place] [address] * (ABNORMAL) Lipid panel (05/21/2024 4:20 PM GOVERNMENT GAUGER) Cholesterol 205(H) 30 - 199 mg/dL Comment: [...] on 2017. Triglycerides 92 <=149 mg/dL [facility] Comment: Interpretive Data Ages < [...] 2017. HDL 55 >=40 mg/dL [facility] Comment: Interpretive Data Ages < [...] LDL, calculated 134(H) <=129 mg/dL [facility] Comment: Interpretive Data Ages < [...] 2023. Non-HDL Cholesterol 150 mg/dL [facility] Comment: Interpretive Data Ages < [...] revised on 2017. Chol/HDL ratio 4 [facility] Blood 05/21/2024 4:20 PM GOVERNMENT GAUGER 05/21/2024 4:50 PM GOVERNMENT GAUGER Narrative [facility] - 05/22/2024 4:17 PM GOVERNMENT GAUGER Reflex us Leo Henry MD LAB BLOOD ORDERABLES Final Result [facility] [place] [address] * Dexa Axial Skeleton Bone Density 1 or 2 Site (08/02/2022 10:53 AM CDT) Anatomical Region Laterality Modality Body N/A Radiographic Lizeth ging Narrative 08/02/2022 3:34 PM CDT Patient Name: Karly Marques Date of : 1955 Date of scan: 08/02/2022 Bone mineral density was performed on a HoloFisoc Discovery Densitometer. Based on machine cross-calibration and [...] by the International Society of Clinical Densitometry. [id number] Khris Arthur MD [facility] DXA PROCEDURES F inal Result * COLONOSCOPY [...] [facility]# Date Time Exam [id number] Aug 19, 2016 14:27:00 [facility] [id number] Diag Mamm, inc CAD, unilat L Technologist(s): Carla Harris; ; [id number] Aug 19, 2016 15:39:00 [facility] [id number] Breast US unilateral, ltd L ACC# Date Time Exam [id number] Aug 19, 2016 14:27:00 [facility] [id number] Diag Mamm, inc CAD, unilat L Technologist(s): Carla Harris; ; [id number] Aug 19, 2016 15:39:00 [facility] [id number] Breast US unilateral, ltd L EXAMINATION: LEFT [...] SARABIA M.D. on Aug 19 2016 4:20P [id number] Procedure Note Miscellaneous, Not In File / Provider, Historical, MD - 09/17/2016 ANTHONY SARABIA M.D. JUDY RINCON M.D. FINAL REPORT The radiology attending physician has personally reviewed this study, and has reviewed and/or edited this written report and agrees with it. ACC# Date Time Exam [id number] Aug 19, 2016 14:27:00 [facility] [id number] Diag Mamm, inc CAD, unilat L Technologist(s): Carla Harris; ; [id number] Aug 19, 2016 15:39:00 [facility] [address] Breast US unilateral, ltd L ACC# Date Time Exam [id number] Aug 19, 2016 14:27:00 [facility] [id number] Diag Mamm, inc CAD, unilat L Technologist(s): Carla Harris; ; [id number] Aug 19, 2016 15:39:00 C [id number] Breast US unilateral, ltd L EXAMINATION: LEFT [...] SARABIA M.D. on Aug 19 2016 4:20P [id number] us Not In File Miscellaneous IMG MAMMO PROCEDURES F inal Result from Last 3 Months or Most Recently Relevant to Health Maintenance Insurance [facility] ADV[facility]AGE [employer] MEDICARE ADVANTAGE Advance Directives For more information, please contact: [phone] Documents on File Type Date Recorded Patient Parker Expl anation ADVANCE DIRECTIVE 12/23/2021 2:49 PM Power of Coffee Grower-Medical ADVANCE DIRECTIVE 12/23/2021 2:49 PM Living Will [...] First Alternate Health Care Agent Care Teams Caponizer Relationship Specialty Start Date End Date Justen Gale MD 2 [facility] [address] [place] [address] PCP - General 10/09/17 Liu Jerez MD Consulting Physician Gastroenterology 07/28/[address] [place] [address] [facility] [address] [place] [address] Consulting Physician Pulmonary Disease 08/03/17 Khris Arthur MD [address] [facility] [address] [place] [address] Medical Oncologist/Coal Yard Supervisor Medical Oncology 10/23/17 [place] [address] [facility] [address] [place] [address] Surgeon Orthopedic Surgery 10/23/17 [place] [address] [facility] [address] [place] [address] Consulting Physician Pain Management 10/23/[address] [place] [address] [facility] [address] [place] [address] Referring Physician General Surgery 01/26/18 [place] [address] [facility] [address] [place] [address] Consulting Physician Neurology 01/26/18
--- OUTSIDE RECORDS SUMMARY | 2024-11-27 03:16 | XMS_ITS | Encounter Summary ---
Author Organization [facility] Address [address] [place] [address] Phone Care Team Providers Care [employer] Special Ed Teacher Name Role Phone Justen Gale MD Primary Care Provider David Roberts APRN, BIOMEDICAL ENGINEER Unavailable Annel Rod MD Unavailable Reason for Visit * Reason Onset Date Comments Follow-up 11/14/2024 Encounter Details Date Type Department Care Team (Late st Contact Info) Description 11/14/2024 Telephone [facility] Call Center [address] [place] [address] Justen Gale MD #[address] [address] Follow-up Social History Tobacco Use Types Packs/Day Years Used Date Smoking Tobacco: Never Smokeless Tobacco: Never Alcohol Use Standard Drinks/Week Comments No 0 (1 standard drink = 0.6 oz pur e alcohol) [facility] Utilities Answer Date Recorded In the past 12 months has [employer] electric, gas, oil, or water company threatened [...] Questions 1-9 0 07/23 [facility] - Occupational Stress Questionnaire Answer Date [...] a skilled nursing (including now)? No 08/06/2024 AUDIT-C Answer Date [...] Recommendations A: Received call from pharmacist at [facility] who states that it is recommended that the patient be placed on a statin medicaiton due to having diabetes and being between the ages of 40-75. R: Routing to provider to notify. documented in this encounter Plan of Treatment Upcoming Encounters Date Type Department Care Team (Late st Contact Info) Description 12/17/2024 3:30 PM CDT Office Visit [facility] - Endocrinology [facility] #2 [place] [address] Annel Rod MD #[address] [address] 05/29/2025 1:30 PM INDUSTRIAL EDUCATION INSTRUCTOR Office Visit [facility] Family Medicine [facility] #2 [place] [address] Justen Gale MD #[address] [address] documented as of this encounter Visit Diagnoses Not on filedocumented in this encounter Additional Health Concerns Assessment Noted Time PHQ-9 Depression Total Score: 0 08/02/19 25 1:09 PM CDT documented as of this encounter Care Teams [employer] Special Ed Teacher Relationship Specialty Start Date End Date Justen Gale MD #[address] [place] [address] PCP - General Family Medicine 10/17/17 David Roberts APRN, BIOMEDICAL ENGINEER #2 [facility] [place] [place] [address] Nurse Practitioner Advanced Practice Nurse 01/31/22 Annel Rod MD #[address] [place] [address] Consulting Physician Endocrinology 07/01/22 documented as of this encounter
--- OUTSIDE RECORDS SUMMARY | 2024-11-27 03:16 | XMS_ITS | Encounter Summary ---
Author Organization [facility] Address [address] [place] [address] Phone Care Team Providers Care Car Sander Name Role Phone Justen Gale MD Primary Care Provider David Roberts APRN, DEVELOPMENT GEOLOGIST Unavailable Annel Rod MD Unavailable Reason for Visit * Reason Onset Date Comments Sore Throat 09/02/2024 Encounter Details Date Type Department Care Team (Late st Contact Info) Description 09/02/2024 Nurse Triage [facility] Central Call Center [address] [place] [address] Justen Gale MD #[address] [address] Sore Throat Social History Tobacco Use Types [...] Pharmacy, medications, and allergies reviewed. Discussed utilizing Qik to: discuss if they would prefer a Qik message or phone call response - See [...] Ulcers - Caller Reports Outcome: Transfer to disintegrator queue Reason: Caller denied all higher acuity questions The caller accepted this outcome. Caller Denied: * Struggling for each breath (severe trouble breathing) * Can't swallow saliva (drooling) documented in this encounter Plan of Treatment Upcoming Encounters Date Type Department Care Team (Late st Contact Info) Description 12/17/2024 3:30 PM CDT Office Visit [facility] Endocrinology - [place] [address] [facility] [place] [address] Annel Rod MD #[address] [place] [address] 05/29/2025 1:30 PM MANAGER LONG TERM CARE Office Visit [facility] Family Medicine [facility] [address] [facility] [place] [address] Justen Gale MD [address] [address] documented as of this encounter Visit Diagnoses Not on filedocumented in this encounter Additional Health Concerns Assessment Noted Time PHQ-9 Depression Total Score: 0 08/02/19 25 1:09 PM CDT documented as of this encounter Care Teams Car Sander Relationship Specialty Start Date End Date Justen Gale MD #[address] [address] PCP - General Family Medicine 10/17/17 David Roberts APRN, DEVELOPMENT GEOLOGIST [address] [place] [address] Nurse Practitioner Advanced Practice Nurse 01/31/22 Annel Rod MD #[address] [address] Consulting Physician Endocrinology 07/01/22 documented as of this encounter
--- OUTSIDE RECORDS SUMMARY | 2024-11-27 03:16 | XMS_ITS | Encounter Summary ---
Author Organization [facility] Address [address] [place] [address] Phone Care Team Providers Care Hypo Splasher Name Role Phone Justen Gale MD Primary Care Provider [phone] David Roberts APRN, DEVELOPMENT INTERN Unavailable Annel Rod MD Unavailable Reason for Visit * Reason Comments Medication Refill Encounter Details Date Type Department Care Team (Late st Contact Info) Description 02/07/2023 Refill [facility] - Family [facility] #2 [place] [address] Catrina Quiñ[place] [address] [place] [address] Medication Refill Social History Tobacco Use Types [...] Date Type Provider Dept 01/17/23 Office Visit aCtrina Quiñonez MD [facility] [place] 09/16/22 Office Visit Pili Elkins APRN, NETTA [facility] 07/05/22 Office Visit Pili Elkins APRN, NETTA [facility] [place] 05/02/22 Office Visit Justen Gale MD [facility] 03/03/22 Office Visit Pili Elkins APRN, NETTA [facility] [place] Showing recent visits within past 365 days [...] - Endocrinology [facility] #[address] [place] [address] Annel Rod MD #[address] [address] 05/29/2025 1:30 PM PEN RIDER Office Visit [facility] Family Medicine [facility] #[address] [place] [address] Justen Gale MD #[address] [address] documented as of this encounter Visit Diagnoses Not on filedocumented in this encounter Additional Health Concerns Infection Onset Date Last Indicated Resolved Time COVID - 19 08/01/2024 08/01/2024 08/01/2024 3:20 PM CDT Assessment Noted Time PHQ-9 Depression Total Score: 8 01/18/20 23 2:24 PM CDT documented as of this encounter Care Teams Hypo Splasher Relationship Specialty Start Date End Date Justen Gale MD #[address] [address] PCP - General Family Medicine 10/17/17 David Roberts APRN, DEVELOPMENT INTERN [address] [place] [address] Nurse Practitioner Advanced Practice Nurse 01/31/22 Annel Rod MD #[address] [address] Consulting Physician Endocrinology 07/01/22 documented as of this encounter
--- OUTSIDE RECORDS SUMMARY | 2024-11-27 03:16 | XMS_ITS | Encounter Summary ---
Author Organization [facility] Address [address] [place] [address] Phone Care Team Providers Care School Librarian Name Role Phone Justen Gale MD Primary Care Provider David Roberts APRN, RETAIL SALES VITAMIN CONSULTANT Unavailable [phone] Annel Rod MD Unavailable Reason for Visit * Reason Comments Medication Refill Encounter Details Date Type Department Care Team (Late st Contact Info) Description 07/14/2022 Refill [facility] - Family Medicine [facility] #2 [place] [address] Justen Gale MD #[address] [address] Medication Refill Social History Tobacco Use Types [...] Description 12/17/2024 3:30 PM CDT Office Visit [facility] - Endocrinology - [place] #2 [place] [address] Annel Rod MD #2 [facility] [address] [place] [address] 05/29/2025 1:30 PM AWS CONSULTANT Office Visit [facility] - Family Medicine [facility] #2 [place] [address] Justen Gale MD #2 [facility] [address] [place] [address] documented as of this encounter Visit Diagnoses Not on filedocumented in this encounter Additional Health Concerns Infection Onset Date Last Indicated Resolved Time COVID - 19 08/01/2024 08/01/2024 08/01/2024 3:20 PM CDT Assessment Noted Time PHQ-9 Depression Total Score: 0 07/21/19 3:00 PM CDT documented as of this encounter Care Teams School Librarian Relationship Specialty Start Date End Date Justen Gale MD #2 [facility] [address] [place] [address] PCP - General Family Medicine 10/17/17 David Roberts VISITOR SERVICES ASSOCIATE, RETAIL SALES VITAMIN CONSULTANT #2 [place] [address] Nurse Practitioner Advanced Practice Nurse 01/31/22 Annel Rod MD #2 [facility] [address] [place] [address] Consulting Physician Endocrinology 07/01/22 documented as of this encounter
--- OUTSIDE RECORDS SUMMARY | 2024-11-27 03:16 | XMS_ITS | Encounter Summary ---
Author Organization [facility] Address [address] [place] [address] Phone Care Team Providers Care Road Maker Name Role Phone Justen Gale MD Primary Care Provider David Roberts APRN, REHAB SPEC Unavailable Annel Rod MD Unavailable Reason for Visit * Reason Comments Medication Refill Encounter Details Date Type Department Care Team (Late st Contact Info) Description 09/30/2023 Refill [facility] - Endocrinology - [place] #[address] [place] [address] Annel Rod MD #[address] [address] Medication Refill Social History [...] AM CDT Medication(s) refilled and signed per [facility] [facility] Chronic Medication Refill Standing Order for Pediatric and Adult Patients. documented in this encounter Plan of Treatment Upcoming Encounters Date Type Department Care Team (Late st Contact Info) Description 12/17/2024 3:30 PM CDT Office Visit [facility] - Endocrinology - [place] #[address] [place] [address] Annel Rod MD #[address] [address] 05/29/2025 1:30 PM BRICK YARD HAND Office Visit [facility] - Family Medicine - [place] #2 [place] [address] Justen Gale MD #2 [facility] [address] [place] [address] documented as of this encounter Visit Diagnoses Not on filedocumented in this encounter Additional Health Concerns Infection Onset Date Last Indicated Resolved Time COVID - 19 08/01/2024 08/01/2024 08/01/2024 3:20 PM CDT Assessment Noted Time PHQ-9 Depression Total Score: 8 01/18/20 23 2:24 PM CDT documented as of this encounter Care Teams Road Maker Relationship Specialty Start Date End Date Justen Gale MD #[address] [address] PCP - General Family Medicine 10/17/17 Dvaid Roberts APRN, REHAB SPEC #[address] [place] [address] Nurse Practitioner Advanced Practice Nurse 01/31/22 Annel Rod MD #[address] [address] Consulting Physician Endocrinology 07/01/22 documented as of this encounter
[2024-11-27 03:55] VITALS: BP 141/78; PULSE 83; RESP 18; TEMP 36.9; O2SAT 98
--- NOTE | 2024-11-27 04:11 | ED_ITS ---
HPI - SOB/Dyspnea General Chief Complaint: Shortness of Breath/Dyspnea Stated Complaint: sob Time Seen by Provider: 11/27/24 03:06 Source: patient Limitations: no limitations History of Present Illness HPI Narrative: Patient presents with report of shortness of breath. Has upcoming appointments with rheumatology (next week) and has been referred to cardiology and urology by her PCP (Shahla). She had been cutting down on steroids. States she was released from the hospital recently after being diagnosed with CHF. ENT recently diagnosed her with GERD for which she is on pantoprazole. She reports orthopnea and dyspnea on exertion. She states she still feels like she has a UTI based on feeling like she wants to pee but nothing coming out. Has 1 more day of amoxicillin/Augmentin to take for respiratory issues. Denies chest pain. Has a dry cough. No fevers/chills. She has intermittent nausea and states she feels like she is choking when this occurs. States history of gastroparesis after a gastric emptying study was performed. Related Data Home Medications ?Medication ?Instructions ?Recorded ?Confirmed ?Last Taken ?Type exemestane 25 mg tablet 25 mg PO HS 01/06/20 11/16/24 11/15/24 History insulin glargine 100 unit/mL (3 50 unit subcut QAM 01/06/20 11/16/24 11/15/24 History mL) subcutaneous pen (Lantus Solostar U-100 Insulin) ropinirole 5 mg tablet 5 mg PO HS 01/06/20 11/16/24 11/15/24 History insulin lispro 100 unit/mL 32 unit subcut TID 03/19/22 11/16/24 11/15/24 History subcutaneous pen (Humalog KwikPen (U-100) Insulin) oxybutynin chloride 15 mg 15 mg PO DAILY 11/06/22 11/16/24 11/15/24 History tablet,extended release 24 hr gabapentin 300 mg capsule 300 mg PO TID 06/25/23 11/16/24 11/15/24 History prednisone 10 mg tablet 10 mg PO DAILY 10/08/24 11/16/24 11/15/24 History rivaroxaban 20 mg tablet (Xarelto) 20 mg PO 0900 10/08/24 11/16/24 11/15/24 History Allergies Allergy/AdvReac Type Severity Reaction Status Date / Time ceftriaxone Allergy Severe SOB Verified 11/16/24 02:24 cephalexin Allergy Severe Difficulty Verified 11/16/24 02:24 Breathing Cephalosporins Allergy Severe Difficulty Verified 11/16/24 02:24 Breathing lorazepam Allergy Severe Swelling Verified 11/16/24 02:24 trazodone Allergy Severe Swelling Verified 11/16/24 02:24 of Lip/Tongue/Throat metoclopramide Allergy Intermediate Other Verified 11/16/24 02:24 azithromycin Allergy Mild Itching Verified 11/17/24 19:55 chlorhexidine Allergy Mild BLISTERING Verified 11/16/24 02:24 levofloxacin Allergy Mild Hives / Verified 11/16/24 02:24 Red Face ketorolac Allergy Itching Verified 11/16/24 02:24 latex Allergy Rash Verified 11/16/24 02:24 meropenem Allergy Rash Verified 11/16/24 02:24 nitrofurantoin Allergy Itching Verified 11/16/24 02:24 piperacillin Allergy Rash Verified 11/16/24 02:24 reslizumab Allergy Hives Verified 11/16/24 02:24 trimethoprim (From Allergy Itching Verified 11/16/24 02:24 Sulfamethoxazole-Trimethoprim) sulfamethoxazole (From AdvReac Severe Anaphylaxis Verified 11/16/24 02:24 Sulfamethoxazole-Trimethoprim) clindamycin AdvReac Intermediate Nausea and Verified 11/16/24 02:24 Vomiting doxycycline AdvReac Mild Itching Verified 11/16/24 02:24 oxycodone AdvReac Mild Vomiting Verified 11/16/24 02:24 amlodipine AdvReac Swelling Verified 11/16/24 02:24 lisinopril AdvReac Swelling Verified 11/16/24 02:24 pregabalin AdvReac Swelling Verified 11/16/24 02:24 [facility] Past Medical History Medical History Polymyositis with myopathy Gastroparesis Obstructive sleep apnea on CPAP Restless leg syndrome Pulmonary embolism positive for coagulation workup Deep venous thrombosis Type 2 diabetes mellitus Throat pain in adult Oral ulcer Chronic anticoagulation Overactive bladder Irritable bowel syndrome Congestive heart failure Chronic back pain Collagenous colitis Morbid obesity Breast cancer Depression Anxiety Peripheral neuropathy Kidney stone Multiple thyroid nodules Surgical History Surgical History History of umbilical hernia repair History of colonoscopy Status post insertion of spinal cord stimulator History of cystoscopy History of ureter stent History of cholecystectomy History of bilateral mastectomy History of esophagogastroduodenoscopy (EGD) History of right oophorectomy History of total right knee replacement History of cardiac catheterization Reportedly negative for coronary artery disease. Family History Family History Mother Diabetes mellitus Acute myocardial infarction Congestive heart failure Hypertension Cerebrovascular accident Coronary artery disease Father Prostate carcinoma Sibling Acute myocardial infarction Breast cancer Chronic obstructive pulmonary disease Social History Social History Social History: Surrogate medical decision maker: Jimmei Marques, spouse. (Previously listed though she reports being now) Code status: Full code. Smoking packs per day: 0 Smoking cigarettes per day: 0.0 Years smoked: 2 Smoking pack-years: 0.00 Smoking status: Never smoker Second hand tobacco smoke exposure: Yes Alcohol intake: never Substance use: never Substance use type: does not use Do You Feel Safe in your Home?: Yes Lack of Transportation: YES Lack of Food: Never True Current Housing: I Have Housing Concerned About Future Housing: No Difficulty Paying Gas/Electric Bills: No Difficulty Paying for Meds: No Currently Unemployed: No Education: Associate Degree Difficulty w/ Childcare or Family Care: No Living arrangements: with family Additional living arrangements comments: daughter Additional occupation/education comments: Disabled. Spiritual care concerns: No Exam 2 Narrative: GENERAL: well-nourished, and in no acute distress. HEAD: Normocephalic, atraumatic. EYES: Non injected, non icteric ENT: Nares clear, no rhinorrhea or epistaxis. Gross auditory acuity intact. NECK: Supple. No meningismus. CHEST: Speaking in full sentences. No respiratory distress. Lungs clear without crackles. HEART: Regular rate and rhythm. . ABDOMEN: Obese but Soft, nondistended. Not peritoneal EXTREMITIES: Normal range of motion. No lower extremity edema. SKIN: Warm, dry, no rash. NEURO: No focal deficits. Alert and oriented. Answering questions. Following commands. Normal speech without aphasia or dysarthria. PSYCH: Congruent mood and affect. Course Vital Signs Vital signs: Vital Signs Temperature 97.4 F L 11/27/24 00:13 Pulse Rate 92 11/27/24 00:13 Respiratory Rate 20 11/27/24 00:13 Blood Pressure 118/70 11/27/24 00:13 Pulse Oximetry 97 11/27/24 00:13 Oxygen Delivery Room Air 11/27/24 00:13 Temperature 98.2 F 11/27/24 06:37 Pulse Rate 92 11/27/24 06:37 Respiratory Rate 18 11/27/24 06:37 Blood Pressure 95/82 L 11/27/24 06:37 Pulse Oximetry 97 11/27/24 06:37 Oxygen Delivery Room Air 11/27/24 07:28 MDM - SOB/Dyspnea MDM Narrative Medical decision making narrative: Patient presents with report of shortness of breath. Frequently presents to ED. In the emergency department they are afebrile with vital signs within normal limits. She has a mild leukocytosis. This is chronic to some degree given that she is on steroids. Her hemoglobin is also slightly low/abnormal although hematocrit is normal. Troponin within normal limits. Hyperglycemia is without anion gap acidosis. Sodium corrects to 135/137 in the setting of hyperglycemia. BNP normal. Glucosuria but otherwise urine does not appear infected. D-dimer normal. Walking pulse oximetry is performed the patient does not desaturate below 96%. Max HR 107. This is acceptable. Stable for discharge. Advised follow up including keeping the appointments/referrals already in place. Differential Diagnosis Differential diagnosis: Likely congestive heart failure, community acquired pneumonia, pulmonary embolism and other (pneumonitis; GERD; bronchitis; UTI; ACS) Lab Data Attestation: I reviewed the patient's lab results. 11/27/24 04:29 11/27/24 04:29 Labs: Lab Results 11/27/24 11/27/24 11/27/24 Range/Units 04:28 04:29 04:54 WBC 12.5 H (4.5-10.0) K/mm3 RBC 4.08 L (4.2-5.4) M/mm3 Hgb 11.8 L (12.0-15.0) g/dL Hct 38.1 (37.0-47.0) % MCV 93.4 (80-100) fl MCH 28.9 (26-34) pg MCHC 31.0 L (32-36) g/dl RDW 13.5 (11.5-14.5) % Plt Count 243 (150-375) k/mm3 MPV 9.6 (7.4-10.4) fl Immature Gran % (Auto) 0.6 H (0-0.5) % Neut % (Auto) 64.7 (45.5-73.1) % Lymph % (Auto) 24.6 (18.3-44.2) % [place] % (Auto) 8.8 H (2.6-8.5) % Eos % (Auto) 1.0 (0-4.4) % Baso % (Auto) 0.3 (0.2-1.2) % Lymph # (Auto) 3.06 (0.9-3.2) K/mm3 [place] # (Auto) 1.1 H (0.1-0.6) K/mm3 Eos # (Auto) 0.1 (0-0.3) K/mm3 Baso # (Auto) 0.0 (0.0-0.1) K/mm3 Abs Immat Gran (auto) 0.08 H (0.00-0.031) K/mm3 Absolute Neuts (auto) 8.1 H (1.3-6.7) K/mm3 Absolute Nucleated RBC 0.000 (0.0-0.012) K/mm3 Nucleated RBC % 0.0 (0.0-0.2) % D-Dimer 0.32 (<0.48) ug/mL Sodium 133 L (137-145) mmol/L Potassium 4.2 (3.4-5.0) mmol/L Chloride 100 (98-107) mmol/L Carbon Dioxide 28 (22-30) mmol/L Anion Gap 5 (4-12) mmol/L BUN 19 H D (7-17) mg/dL Creatinine 0.73 (0.7-1.0) mg/dL Estim Creat Clear Calc 79 ml/min Estimated GFR > 60 (59 - ) Glucose 256 H (65-110) mg/dL Calcium 9.2 (8.4-10.2) mg/dL Total Bilirubin 0.4 (0.2-1.3) mg/dL AST 22 (14-36) U/L ALT 25 (6-35) U/L Alkaline Phosphatase 67 (38-126) U/L Troponin I 0.013 (0.000-0.034) ng/mL NT-Pro-B Natriuret Pep 99 (19.9-100) pg/mL Total Protein 6.8 (6.3-8.2) g/dL Albumin 3.6 (3.5-5.1) g/dL Urine Color Yellow (Yellow) Urine Appearance Clear (Clear) Urine pH 5.5 (5.0-9.0) Ur Specific [place] 1.025 (1.001-1.035) Urine Protein Negative (Negative) mg/dL Urine Glucose (UA) 2+ H (Negative) mg/dL Urine Ketones Negative (Negative) mg/dL Ur Blood (Man) Negative (Negative) Urine Nitrate Negative (Negative) Urine Bilirubin Negative (Negative) Urine Urobilinogen 0.2 (<2.0) mg/dL Leukocyte Esterase Rfl Negative (Negative) PAO/UL Influenza A (RT-PCR) Negative (Negative) Influenza B (RT-PCR) Negative (Negative) RSV (RT-PCR) Negative (Negative) SARS-CoV-2 RNA (RT-PCR) Negative (Negative) Imaging Data Attestation: I personally reviewed and interpreted this imaging study as follows: My impression: Mild cardiomegaly; patient is wearing bra in image; no loss of costophrenic angle ECG Data EKG #1: Attestation: I personally reviewed and interpreted this ECG as follows: ECG completion date: 11/27/24 ECG completion time: 00:02 Interpretation: Normal sinus rhythm at a rate of 86 beats per minute. MT interval 128. QRS 78. QT/QTC 348/418. T-wave flattening in 3 but upright in contiguous inferior leads 2 and AVF. T-wave also slightly flat in V3 but normal in contiguous leads. Discharge Plan Discharge Clinical Impression: Hyperglycemia due to diabetes mellitus, Glucosuria, Shortness of breath Patient Disposition: Home Condition: Stable Instructions: Antibiotic Form, Diabetic Gastroparesis (DC), Managing Diabetes During Sick Days (ED), Diabetic Hyperglycemia (ED), Shortness of Breath (ED), Mediterranean Diet (DC), Diabetes and Exercise (ED) Additional Instructions: Your extensive workup performed in the emergency department including x-ray, EKG, labs (that included CBC, chemistry, cardiac enzyme, BNP -assessment of heart failure, and D-dimer that assesses probability of blood clot) were all reassuring. You did not desaturate when walking. Your urine does not show a UTI. Continue taking all of your medications as prescribed and follow-up with your primary care physician as well as all the upcoming appointments with specialists you have scheduled and/or in process. Patient Language: Omani Prescriptions: No Action gabapentin 300 mg capsule 300 mg PO TID exemestane 25 mg tablet 25 mg PO HS ropinirole 5 mg tablet 5 mg PO HS insulin glargine [Lantus Solostar U-100 Insulin] 100 unit/mL (3 mL) insulin pen 50 unit SUBCUT QAM insulin lispro [Humalog KwikPen Insulin] 100 unit/mL insulin pen 32 unit SUBCUT TID Patient Comments: PATIENT EXPERIENCES LOW BLOOD SUGAR IN THE HOSPITAL albuterol sulfate 90 mcg/actuation HFA aerosol inhaler 1 inh inhalation QID PRN (Reason: shortness of breath or wheezing) Qty: 6.7 0RF oxybutynin chloride 15 mg tablet extended release 24hr 15 mg PO DAILY ondansetron 4 mg tablet,disintegrating 4 mg PO Q8H PRN (Reason: nausea and vomiting) Qty: 10 0RF lidocaine 5 % ointment 1 applic topical TID PRN (Reason: skin irritation) Qty: 50 0RF prednisone 10 mg tablet 10 mg PO DAILY Xarelto 20 mg tablet 20 mg PO 0900 pantoprazole [Protonix] 40 mg tablet,delayed release (DR/EC) 40 mg PO BID 30 Days Qty: 60 0RF hydrocodone-acetaminophen 10-325 mg tablet 1 tablet PO Q6H PRN (Reason: pain (scale score 7-10)) 5 Days Qty: 10 0RF furosemide [Lasix] 20 mg tablet 20 mg PO DAILY Qty: 30 0RF Follow-up/Referrals: Shahla,Justen Spicer MD [Primary Care Provider] - Stand Alone Forms: Work/School Release IP Time of Disposition: 06:48
[2024-11-27 04:39] LABS: Hematocrit 38.1 % (37.0-47.0); Hemoglobin 11.8 g/dL (12.0-15.0); Immature Granulocyte Percent A 0.6 % (0-0.5); Lymphocytes Absolute Auto 3.06 K/mm3 (0.9-3.2); Mean Corpuscular HGB Conc 31.0 g/dl (32-36); Mean Corpuscular Hemoglobin 28.9 pg (26-34); Mean Corpuscular Volume 93.4 fl (80-100); Nucleated Red Blood Cells Absolute Auto 0.000 K/mm3 (0.0-0.012); Nucleated Red Blood Cells Perc 0.0 % (0.0-0.2); Platelet Count Result 243 k/mm3 (150-375); Red Blood Count 4.08 M/mm3 (4.2-5.4); White Blood Count 12.5 K/mm3 (4.5-10.0)
[2024-11-27 04:53] LABS: Alanine Aminotransferase 25 U/L (6-35); Anion Gap 5 mmol/L (4-12); Aspartate Amino Transferase 22 U/L (14-36); Bilirubin,Total 0.4 mg/dL (0.2-1.3); Blood Urea Nitrogen 19 mg/dL (7-17); Calcium 9.2 mg/dL (8.4-10.2); Carbon Dioxide 28 mmol/L (22-30); Chloride 100 mmol/L (98-107); Estimated CRCL calculation 79 ml/min; Estimated Glomerular Filt Rate > 60; Glucose 256 mg/dL (65-110); Potassium 4.2 mmol/L (3.4-5.0); Sodium 133 mmol/L (137-145)
[2024-11-27 04:54] LABS: Albumin Level 3.6 g/dL (3.5-5.1); Alkaline Phosphatase 67 U/L (38-126); Total Protein 6.8 g/dL (6.3-8.2)
[2024-11-27 05:02] LABS: NT Pro B Type Natriuretic Pept 99 pg/mL (19.9-100)
[2024-11-27 05:04] LABS: Troponin I 0.013 ng/mL (0.000-0.034)
[2024-11-27 05:08] LABS: Add Urine Microscopic? NO; Appearance Urine Clear (Clear); Glucose Urine UA 2+ mg/dL (Negative); Leukocyte Esterase Ur Negative LEU/UL (Negative); Nitrate Urine Negative (Negative); Specific Grav Ur 1.025 (1.001-1.035)
[2024-11-27] MEDS: ACETAMINOPHEN 500 MG TABLET 1000 MG PO (05:27)
[2024-11-27 05:41] LABS: Influenza A QL RT-PCR Negative (Negative); Influenza B QL RT-PCR Negative (Negative); RSV RNA, RT-PCR Negative (Negative); SARS-CoV-2 RNA PCR Negative (Negative)
[2024-11-27] MEDS: HYDROmorphone HCL INJ (*CRX) 2 MG/ML VIAL 1 MG IV PUSH (06:35)
[2024-11-27 06:37] VITALS: BP 95/82; PULSE 92; RESP 18; TEMP 36.8; O2SAT 97
== END 2024-11-27 06:59 | disposition home or self-care (01) ==
PROVIDERS: Emergency Provider Student in an Organized Health Care Education/Training Program; PCP Internal Medicine
DX: R06.02 Shortness of breath (principal); E11.65 Type 2 diabetes mellitus with hyperglycemia; R81 Glycosuria; Z20.822 Contact with and (suspected) exposure to COVID-19; I50.9 Heart failure, unspecified; E11.43 Type 2 diabetes mellitus with diabetic autonomic (poly)neuropathy; K31.84 Gastroparesis; K21.9 Gastro-esophageal reflux disease without esophagitis; E11.42 Type 2 diabetes mellitus with diabetic polyneuropathy; E66.01 Morbid (severe) obesity due to excess calories; Z68.43 Body mass index [BMI] 50.0-59.9, adult; K58.9 Irritable bowel syndrome, unspecified; M33.20 Polymyositis, organ involvement unspecified; N32.81 Overactive bladder; G47.33 Obstructive sleep apnea (adult) (pediatric); F32.A Depression, unspecified; F41.9 Anxiety disorder, unspecified; Z96.82 Presence of neurostimulator; Z96.651 Presence of right artificial knee joint; Z86.711 Personal history of pulmonary embolism; Z86.718 Personal history of other venous thrombosis and embolism; Z85.3 Personal history of malignant neoplasm of breast; Z87.442 Personal history of urinary calculi; Z90.49 Acquired absence of other specified parts of digestive tract; Z90.13 Acquired absence of bilateral breasts and nipples; Z90.721 Acquired absence of ovaries, unilateral; Z77.22 Contact with and (suspected) exposure to environmental tobacco smoke (acute) (chronic); Z79.4 Long term (current) use of insulin; Z79.899 Other long term (current) drug therapy; Z79.01 Long term (current) use of anticoagulants; R94.31 Abnormal electrocardiogram [ECG] [EKG]
CPT/HCPCS: 36415; 71046; 80053; 81003; 83880; 84484; 85025; 85380; 87637; 93005; 96374; 99284; A9270; J1171

== ENCOUNTER 2024-12-17 04:27 | Emergency (ER) | payer MEDICARE, MEDICAID, SELFPAY ==
[2024-12-17 04:35] VITALS: BP 148/73; PULSE 81; RESP 21; TEMP 36.9; O2SAT 100
[2024-12-17] MEDS: MORPHINE SULFATE (*CRX) 4 MG/ML INJ IV PUSH (05:24)
[2024-12-17] MEDS: ONDANSETRON INJ 4 MG/2 ML VIAL IV PUSH (05:24)
[2024-12-17 05:25] LABS: Hematocrit 42.2 % (37.0-47.0); Hemoglobin 12.9 g/dL (12.0-15.0); Immature Granulocyte Percent A 0.5 % (0-0.5); Lymphocytes Absolute Auto 2.73 K/mm3 (0.9-3.2); Mean Corpuscular HGB Conc 30.6 g/dl (32-36); Mean Corpuscular Hemoglobin 28.6 pg (26-34); Mean Corpuscular Volume 93.6 fl (80-100); Nucleated Red Blood Cells Absolute Auto 0.000 K/mm3 (0.0-0.012); Nucleated Red Blood Cells Perc 0.0 % (0.0-0.2); Platelet Count Result 257 k/mm3 (150-375); Red Blood Count 4.51 M/mm3 (4.2-5.4); White Blood Count 11.0 K/mm3 (4.5-10.0)
--- NOTE | 2024-12-17 05:36 | ED.GENADULT ---
HPI - General Adult General Chief complaint: Unspecified Stated complaint: Autoimmune disorder, alot of pain, makes me sob Time Seen by Provider: 12/17/24 04:30 History of Present Illness HPI narrative: Patient is a 69-year-old female who presents to the emergency department this morning complaining of pain all over. States that she was recently diagnosed with polymyositis and is currently waiting to be seen by rheumatology. Her PCP placed her on steroids which did not tolerate well so she has been tapering dose off but states that the [place] that she has at home to help with this pain has not been controlling her pain today. Denies any recent additional symptoms or concerns. Related Data Home Medications ?Medication ?Instructions ?Recorded ?Confirmed ?Last Taken ?Type exemestane 25 mg tablet 25 mg PO HS 01/06/20 11/16/24 11/15/24 History insulin glargine 100 unit/mL (3 50 unit subcut QAM 01/06/20 11/16/24 11/15/24 History mL) subcutaneous pen (Lantus Solostar U-100 Insulin) ropinirole 5 mg tablet 5 mg PO HS 01/06/20 11/16/24 11/15/24 History insulin lispro 100 unit/mL 32 unit subcut TID 03/19/22 11/16/24 11/15/24 History subcutaneous pen (Humalog KwikPen (U-100) Insulin) oxybutynin chloride 15 mg 15 mg PO DAILY 11/06/22 11/16/24 11/15/24 History tablet,extended release 24 hr gabapentin 300 mg capsule 300 mg PO TID 06/25/23 11/16/24 11/15/24 History prednisone 10 mg tablet 10 mg PO DAILY 10/08/24 11/16/24 11/15/24 History rivaroxaban 20 mg tablet (Xarelto) 20 mg PO 0900 10/08/24 11/16/24 11/15/24 History Allergies Allergy/AdvReac Type Severity Reaction Status Date / Time ceftriaxone Allergy Severe SOB Verified 12/17/24 04:39 cephalexin Allergy Severe Difficulty Verified 12/17/24 04:39 Breathing Cephalosporins Allergy Severe Difficulty Verified 12/17/24 04:39 Breathing lorazepam Allergy Severe Swelling Verified 12/17/24 04:39 trazodone Allergy Severe Swelling Verified 12/17/24 04:39 of Lip/Tongue/Throat metoclopramide Allergy Intermediate Other Verified 12/17/24 04:39 azithromycin Allergy Mild Itching Verified 12/17/24 04:39 chlorhexidine Allergy Mild BLISTERING Verified 12/17/24 04:39 levofloxacin Allergy Mild Hives / Verified 12/17/24 04:39 Red Face ketorolac Allergy Itching Verified 12/17/24 04:39 latex Allergy Rash Verified 12/17/24 04:39 meropenem Allergy Rash Verified 12/17/24 04:39 nitrofurantoin Allergy Itching Verified 12/17/24 04:39 piperacillin Allergy Rash Verified 12/17/24 04:39 reslizumab Allergy Hives Verified 12/17/24 04:39 trimethoprim (From Allergy Itching Verified 12/17/24 04:39 Sulfamethoxazole-Trimethoprim) sulfamethoxazole (From AdvReac Severe Anaphylaxis Verified 12/17/24 04:39 Sulfamethoxazole-Trimethoprim) clindamycin AdvReac Intermediate Nausea and Verified 12/17/24 04:39 Vomiting doxycycline AdvReac Mild Itching Verified 12/17/24 04:39 oxycodone AdvReac Mild Vomiting Verified 12/17/24 04:39 amlodipine AdvReac Swelling Verified 12/17/24 04:39 lisinopril AdvReac Swelling Verified 12/17/24 04:39 pregabalin AdvReac Swelling Verified 12/17/24 04:39 Review of Systems Review of Systems: All systems are reviewed and are negative unless stated otherwise in the HPI. [facility] Past Medical History Medical History Polymyositis with myopathy Gastroparesis Obstructive sleep apnea on CPAP Restless leg syndrome Pulmonary embolism positive for coagulation workup Deep venous thrombosis Type 2 diabetes mellitus Throat pain in adult Oral ulcer Chronic anticoagulation Overactive bladder Irritable bowel syndrome Congestive heart failure Chronic back pain Collagenous colitis Morbid obesity Breast cancer Depression Anxiety Peripheral neuropathy Kidney stone Multiple thyroid nodules Surgical History Surgical History History of umbilical hernia repair History of colonoscopy Status post insertion of spinal cord stimulator History of cystoscopy History of ureter stent History of cholecystectomy History of bilateral mastectomy History of esophagogastroduodenoscopy (EGD) History of right oophorectomy History of total right knee replacement History of cardiac catheterization Reportedly negative for coronary artery disease. Family History Family History Mother Diabetes mellitus Acute myocardial infarction Congestive heart failure Hypertension Cerebrovascular accident Coronary artery disease Father Prostate carcinoma Sibling Acute myocardial infarction Breast cancer Chronic obstructive pulmonary disease Social History Social History Social History: Surrogate medical decision maker: Jimmie Marques, spouse. (Previously listed though she reports being now) Code status: Full code. Smoking packs per day: 0 Smoking cigarettes per day: 0.0 Years smoked: 2 Smoking pack-years: 0.00 Smoking status: Never smoker Second hand tobacco smoke exposure: Yes Alcohol intake: never Substance use: never Substance use type: does not use Do You Feel Safe in your Home?: Yes Lack of Transportation: YES Lack of Food: Never True Current Housing: I Have Housing Concerned About Future Housing: No Difficulty Paying Gas/Electric Bills: No Difficulty Paying for Meds: No Currently Unemployed: No Education: Associate Degree Difficulty w/ Childcare or Family Care: No Living arrangements: with family Additional living arrangements comments: daughter Additional occupation/education comments: Disabled. Spiritual care concerns: No Exam Narrative: General: Alert, awake, afebrile, in no acute distress. HEENT: PERRL, no rhinorrhea, no post nasal drip, oropharynx clear. Neck: Trachea midline, no JVD, no lymphadenopathy. Cardiovascular: Regular rate and rhythm, no murmurs, rubs or gallops, no peripheral edema. Respiratory: Clear to auscultation bilaterally, no tachypnea, no wheezing, no rhonchi, no rubs, no respiratory distress. Abdomen: Soft, nontender, nondistended, no rebound, no guarding, no peritoneal signs. Musculoskeletal: No joint swelling or deformity, normal muscle tone. Skin: No rashes or petechia, no signs of infection. Psychiatric: Alert and oriented, normal behavior and judgment for situation. Neurological: Alert and oriented to person, place, and time. Follows all commands. No focal deficits, speech is clear and fluent. Course Vital Signs Vital signs: Vital Signs Temperature 98.4 F 12/17/24 04:35 Pulse Rate 81 12/17/24 04:35 Respiratory Rate 21 H 12/17/24 04:35 Blood Pressure 148/73 H 12/17/24 04:35 Pulse Oximetry 100 12/17/24 04:35 Oxygen Delivery Room Air 12/17/24 04:35 Temperature 98.4 F 12/17/24 04:35 Pulse Rate 81 12/17/24 04:35 Respiratory Rate 21 H 12/17/24 04:35 Blood Pressure 148/73 H 12/17/24 04:35 Pulse Oximetry 100 12/17/24 04:35 Oxygen Delivery Room Air 12/17/24 04:35 Medical Decision Making MDM Narrative Medical decision making narrative: The patient was evaluated by myself in the emergency department. History is obtained from patient who is an independent historian and physical exam was performed. External medical records were reviewed at this time. IV was established and pertinent tests were ordered. Patient was administered 4 mg of IV morphine for pain and 4 mg of IV Zofran for nausea. Was also administered 125 mg of IV Solu-Medrol. Laboratory results obtained revealing no acute process. Differential diagnosis considerations include chronic pain syndrome, polymyositis, acute viral syndrome. Comorbidities impacting this visit include recent diagnosis of polymyositis. I have evaluated and discussed social determinants of health with the patient that could potentially impact subsequent diagnosis and treatment plans. On repeat assessment of the patient, reevaluation revealed that the patient is doing well and is in no acute distress. Patient symptoms have improved since she arrived to our emergency department. Repeat vital signs were all reviewed and noted to be stable. Differential diagnosis and treatment plan were discussed with the patient at bedside. Patient agrees with discussion and after shared medical decision making agrees with discharge. All questions were answered to the patient's satisfaction. Patient will follow up with rheumatology in 3-5 days. Patient was provided with strict return precautions and instructed to return to the emergency department if any new or worsening symptoms develop. The patient was discharged in stable condition. Vital Signs Vital Signs: Vital Signs Temperature 98.4 F 12/17/24 04:35 Pulse Rate 81 12/17/24 04:35 Respiratory Rate 21 H 12/17/24 04:35 Blood Pressure 148/73 H 12/17/24 04:35 Pulse Oximetry 100 12/17/24 04:35 Oxygen Delivery Room Air 12/17/24 04:35 Temperature 98.4 F 12/17/24 04:35 Pulse Rate 81 12/17/24 04:35 Respiratory Rate 21 H 12/17/24 04:35 Blood Pressure 148/73 H 12/17/24 04:35 Pulse Oximetry 100 12/17/24 04:35 Oxygen Delivery Room Air 12/17/24 04:35 Lab Data 12/17/24 05:20 12/17/24 05:20 Labs: Lab Results 12/17/24 Range/Units 05:20 WBC 11.0 H (4.5-10.0) K/mm3 RBC 4.51 (4.2-5.4) M/mm3 Hgb 12.9 (12.0-15.0) g/dL Hct 42.2 (37.0-47.0) % MCV 93.6 (80-100) fl MCH 28.6 (26-34) pg MCHC 30.6 L (32-36) g/dl RDW 13.3 (11.5-14.5) % Plt Count 257 (150-375) k/mm3 MPV 9.6 (7.4-10.4) fl Immature Gran % (Auto) 0.5 (0-0.5) % Neut % (Auto) 62.3 (45.5-73.1) % Lymph % (Auto) 24.8 (18.3-44.2) % Mel[place] % (Auto) 9.2 H (2.6-8.5) % Eos % (Auto) 2.8 (0-4.4) % Baso % (Auto) 0.4 (0.2-1.2) % Lymph # (Auto) 2.73 (0.9-3.2) K/mm3 [place] # (Auto) 1.0 H (0.1-0.6) K/mm3 Eos # (Auto) 0.3 (0-0.3) K/mm3 Baso # (Auto) 0.0 (0.0-0.1) K/mm3 Abs Immat Gran (auto) 0.06 H (0.00-0.031) K/mm3 Absolute Neuts (auto) 6.9 H (1.3-6.7) K/mm3 Absolute Nucleated RBC 0.000 (0.0-0.012) K/mm3 Nucleated RBC % 0.0 (0.0-0.2) % Sodium 137 (137-145) mmol/L Potassium 4.5 (3.4-5.0) mmol/L Chloride 103 (98-107) mmol/L Carbon Dioxide 27 (22-30) mmol/L Anion Gap 7 (4-12) mmol/L BUN 22 H (7-17) mg/dL Creatinine 0.83 (0.7-1.0) mg/dL Estim Creat Clear Calc 72 ml/min Estimated GFR > 60 (59 - ) Glucose 190 H (65-110) mg/dL Calcium 9.7 (8.4-10.2) mg/dL Total Bilirubin 0.6 (0.2-1.3) mg/dL AST 29 (14-36) U/L ALT 25 (6-35) U/L Alkaline Phosphatase 70 (38-126) U/L Total Creatine Kinase 134 (30-135) U/L Total Protein 8.1 (6.3-8.2) g/dL Albumin 4.0 (3.5-5.1) g/dL Discharge Plan Discharge Clinical Impression: Polymyositis Patient Disposition: Home Condition: Improved Instructions: Antibiotic Form, Polymyositis (ED) Additional Instructions: Please follow-up with your it program manager within the next 3-5 days. Return to the ED if any new or worsening symptoms develop. Patient Language: [place] Prescriptions: No Action gabapentin 300 mg capsule 300 mg PO TID exemestane 25 mg tablet 25 mg PO HS ropinirole 5 mg tablet 5 mg PO HS insulin glargine [Lantus Solostar U-100 Insulin] 100 unit/mL (3 mL) insulin pen 50 unit SUBCUT QAM insulin lispro [Humalog KwikPen Insulin] 100 unit/mL insulin pen 32 unit SUBCUT TID Patient Comments: PATIENT EXPERIENCES LOW BLOOD SUGAR IN THE HOSPITAL albuterol sulfate 90 mcg/actuation HFA aerosol inhaler 1 inh inhalation QID PRN (Reason: shortness of breath or wheezing) Qty: 6.7 0RF oxybutynin chloride 15 mg tablet extended release 24hr 15 mg PO DAILY ondansetron 4 mg tablet,disintegrating 4 mg PO Q8H PRN (Reason: nausea and vomiting) Qty: 10 0RF lidocaine 5 % ointment 1 applic topical TID PRN (Reason: skin irritation) Qty: 50 0RF prednisone 10 mg tablet 10 mg PO DAILY Xarelto 20 mg tablet 20 mg PO 0900 pantoprazole [Protonix] 40 mg tablet,delayed release (DR/EC) 40 mg PO BID 30 Days Qty: 60 0RF hydrocodone-acetaminophen 10-325 mg tablet 1 tablet PO Q6H PRN (Reason: pain (scale score 7-10)) 5 Days Qty: 10 0RF furosemide [Lasix] 20 mg tablet 20 mg PO DAILY Qty: 30 0RF Follow-up/Referrals: Shahla,Justen Spicer MD [Primary Care Provider] - 3 Days Time of Disposition: 05:41
[2024-12-17 05:38] LABS: Alanine Aminotransferase 25 U/L (6-35); Albumin Level 4.0 g/dL (3.5-5.1); Alkaline Phosphatase 70 U/L (38-126); Anion Gap 7 mmol/L (4-12); Aspartate Amino Transferase 29 U/L (14-36); Bilirubin,Total 0.6 mg/dL (0.2-1.3); Blood Urea Nitrogen 22 mg/dL (7-17); Calcium 9.7 mg/dL (8.4-10.2); Carbon Dioxide 27 mmol/L (22-30); Chloride 103 mmol/L (98-107); Creatine Kinase 134 U/L (30-135); Estimated CRCL calculation 72 ml/min; Estimated Glomerular Filt Rate > 60; Glucose 190 mg/dL (65-110); Potassium 4.5 mmol/L (3.4-5.0); Sodium 137 mmol/L (137-145); Total Protein 8.1 g/dL (6.3-8.2)
== END 2024-12-17 05:53 | disposition home or self-care (01) ==
PROVIDERS: Emergency Provider Emergency Medicine; PCP Internal Medicine
DX: M33.20 Polymyositis, organ involvement unspecified (principal); G47.30 Sleep apnea, unspecified; G25.81 Restless legs syndrome; Z86.711 Personal history of pulmonary embolism; E11.9 Type 2 diabetes mellitus without complications; Z79.01 Long term (current) use of anticoagulants; I50.9 Heart failure, unspecified; G89.29 Other chronic pain; Z85.3 Personal history of malignant neoplasm of breast; F32.A Depression, unspecified; F41.9 Anxiety disorder, unspecified; Z87.442 Personal history of urinary calculi; Z79.4 Long term (current) use of insulin
CPT/HCPCS: 36415; 80053; 82550; 85025; 96374; 96375; 99284; J2270; J2405; J2919

== ENCOUNTER 2024-12-23 12:33 | Emergency (ER) | payer MEDICARE, MEDICAID, SELFPAY ==
--- NOTE | ~2024-12-23 | XR_ITS ---
EXAMINATION: XR chest 2V DATE: 12/23/2024 13:14 INDICATION: Shortness of breath TECHNIQUE: frontal and lateral views of the chest were obtained. COMPARISON: Chest radiograph dated 11/27/2024 FINDINGS: Mild opacities at the posterior dependent lung bases. No pleural effusion or pneumothorax. Heart size within normal limits for AP technique with prominent left paracardial fat pad. Moderate to severe thoracic spondylosis with spinal stimulator leads project over the posterior central canal of the midthoracic spine. IMPRESSION: 1. Mild opacities at the dependent posterior lung bases which could represent atelectasis, mild pulmonary edema or pneumonia. Reviewed, dictated and finalized at location A. IMPRESSION: 1. Mild opacities at the dependent posterior lung bases which could represent a telectasis, mild pulmonary edema or pneumonia.
--- NOTE | 2024-12-23 12:35 | ECG_ITS ---
Test Date: 2024-12-23 12:41:25 Measurements Intervals [place] Rate: 87 P: 38 MI: 133 QRS: 3 QRSD: 85 T: 29 QT: 358 QTc: 433 Interpretive Statements SINUS RHYTHM WITH OCCASIONAL SUPRAVENTRICULAR PREMATURE COMPLEXES Electronically Signed On 12-24-2024 06:36:13 CDT by Jose Santos D.O
[2024-12-23 12:45] VITALS: BP 159/84; PULSE 91; RESP 19; TEMP 36.6; O2SAT 98
--- OUTSIDE RECORDS SUMMARY | 2024-12-23 12:51 | XMS_ITS ---
Author Organization [facility] Address [address] [place] [address] Care Team Providers Care Transitional Care Liaison Name Role Phone Liu Jerez MD Unavailable Albert Corbin MD Unavailable Justen Gale MD Primary Care Provider Khris Arthur MD Unavailable [phone] Ko Melendez MD Unavailable John Paul Moyer MD Unavailable Annel Rod MD Unavailable Anali MARSHALL MD, Carlos M. Unavailable [phone] Active Problems Problem Noted Date Diagnosed Date Acute on chronic diastolic congestive heart fail ure 12/03/2024 Class 3 severe obesity due t o excess calories without serious comorbidity with body mass index (BMI) of 50.0 to 59.9 in adult 12/03/2024 Shortness of breath 12/02/2024 Urinary tract infection 05/22/2024 Assessment & Plan (05/26/2024 10:08 AM TUBERCULOSIS SPECIALIST): Presenting with urinary symptoms of right [...] 05/22/2024 Assessment & Plan (05/25/2024 7:52 AM TUBERCULOSIS SPECIALIST): Hx of breast cancer c/b DVT/bilateral [...] 05/22/2024 Assessment & Plan (05/22/2024 1:14 PM TUBERCULOSIS SPECIALIST): -long-standing chronic back pain -CT L [...] 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) 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 10/17/2019 Thyroid [...] long-term current use of insulin ([facility]) 10/23/2017 Assessment & Plan [...] 10/13/2017 Assessment & Plan (05/22/2024 12:29 PM TUBERCULOSIS SPECIALIST): -Hx stage II, ER positive, HER2 [...] 08/01/2017 Assessment & Plan (05/22/2024 12:33 PM TUBERCULOSIS SPECIALIST): -Hx LUL -Hospital provided CPAP ordered History of DVT (deep vein thrombosis) 08/01/2017 History of pulmonary embolism 08/01/2017 Generalized weakness 07/27/2017 Dyspnea 07/27/2017 Unintentional weight loss 07/27/2017 Acute cystitis without hematuria 07/27/2017 Nausea and vomiting 07/26/2017 Overview (07/28/2017): Added automatically from request for surgery [id number] Pulmonary embolism 08/09/2016 Assessment & Plan (10/23/2017 2:05 AM CDT): On Rivaroxaban Lymphedema of left upper extremity 08/09/2016 Assessment & Plan (05/25/2024 7:53 AM TUBERCULOSIS SPECIALIST): S/p L axillary lymph node dissection [...] syndrome Assessment & Plan (05/22/2024 11:18 AM TUBERCULOSIS SPECIALIST): -continue home Requip 5mg nightly Pain of lower extremity 03/12/2013 Overview (07/29/2016): Leg pain Essential hypertension Assessment & Plan (05/23/2024 10:42 AM TUBERCULOSIS SPECIALIST): -Chart history of HTN but not on meds -BP elevated on admission, likely some pain contributing -Monitor closely once pain under adequate control, discussed following up with PCP for this Chronic anticoagulation Restless leg syndrome 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 Type 2 diabetes mellitus without complication Assessment & Plan (05/24/2024 1:39 PM TUBERCULOSIS SPECIALIST): -Last Ha1c 8.4 in 2023, repeat [...] left female breast, unspecified estrogen receptor status (HCC)senior living (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
[2024-12-23 12:52] VITALS: O2SAT 100
--- OUTSIDE RECORDS SUMMARY | 2024-12-23 12:52 | XMS_ITS | Encounter Summary ---
Author Organization [facility] Address [address] [place] [address] Phone Care Team Providers Care Residential Roofer Name Role Phone Justen Gale MD Primary Care Provider David Roberts APRN, HOG TENDER Unavailable Annel Rod MD Unavailable Reason for Visit * Reason Comments Medication Refill Encounter Details Date Type Department Care Team (Late st Contact Info) Description 03/13/2021 Refill [facility] [address] [place] [address] Justen Gale MD #[address] [address] Medication Refill Social History Tobacco [...] No / Unsure 03/02/2021 5:05 PM INTERACTIVE ART DIRECTOR documented as of this encounter Plan of Treatment Upcoming Encounters Date Type Department Care Team (Late st Contact Info) Description 01/13/2025 2:45 PM CDT Office Visit [facility] #2 [place] [address] Pili Elkins APRN, HOG TENDER #[address] [phone] David Roberts APRN, HOG TENDER [address] [place] [address] 01/21/2025 2:00 PM CDT [facility] [address] [place] [phone] Annel Rod MD #[address] [phone] Discharge Disposition: Discharged to home or Selfcare 03/19/2025 2:00 PM INTERACTIVE ART DIRECTOR Office Visit [facility] - [place] #2 [place] [address] Annel Rod MD #[address] [phone] 05/29/2025 1:30 PM INTERACTIVE ART DIRECTOR Office Visit [facility] Family Medicine - [place] #2 [facility] [place] [phone] Jusetn Gale MD #[address] [place] [address] documented as of this encounter Visit Diagnoses Not on filedocumented in this encounter Additional Health Concerns Infection Onset Date Last Indicated Resolved Time COVID - 19 08/01/2024 08/01/2024 08/01/2024 3:20 PM CDT Respiratory Rule-Out 11/18/2024 11/18/2024 025 7:18 AM CDT Assessment Noted Time PHQ-9 Depression Total Score: 0 07/21/19 21 3:00 PM CDT documented as of this encounter Care Teams Residential Roofer Relationship Specialty Start Date End Date Justen Gale MD [address] [address] PCP - General Family Medicine 10/17/17 David Roberts, BENCH GRINDER, HOG TENDER [address] [place] [address] Nurse Practitioner Advanced Practice Nurse 01/31/22 Annel Rod MD #[address] [address] Consulting Physician Endocrinology 07/01/22 documented as of this encounter
--- OUTSIDE RECORDS SUMMARY | 2024-12-23 12:52 | XMS_ITS | Encounter Summary ---
Author Organization [facility] Address [address] [place] [address] Phone Care Team Providers Care Ethnographic Materials Conservator Name Role Phone Justen Gale MD Primary Care Provider David Roberts APRN, ADMITTANCE ATTENDANT Unavailable Annel Rod MD Unavailable Reason for Visit * Reason Onset Date Comments Breathing Problem 08/07/2024 Muscle Pain 08/07/2024 Encounter Details Date Type Department Care Team (Late st Contact Info) Description 08/07/2024 Nurse Triage [facility] [address] [place] [address] Justen Gale MD #[address] [address] Breathing Problem; Muscle Pain Social History Tobacco [...] Score - Questions 1-9 0 07/23 [facility] - [...] this was discussed with the front office administrator and provider was to be notified in [...] Encouraged caller to bring cell phone and truss puller helper to contact EMS 911 if symptoms worsen [...] (e.g., disoriented, slurred speech) Protocols used: Breathing [id number] * Telephone Encounter - Neha Tomlinson - 08/07/2024 1:30 PM CDT Symptoms: Altered Mental Status, Body Aches, Breathing Trouble Outcome: Warm transfer to an emergent RN NOW! Reason: Trouble walking The caller accepted this outcome. documented in this encounter Plan of Treatment Upcoming Encounters Date Type Department Care Team (Late st Contact Info) Description 01/13/2025 2:45 PM CDT Office Visit [facility] #[address] [place] [address] Pili Elkins, ZAMZAM, ADMITTANCE ATTENDANT #[address] [address] David Roberts APRN, ADMITTANCE ATTENDANT [address] [place] [address] 01/21/2025 2:00 PM CDT Appointment [facility] Ultrasound [address] [place] [address] Annel Rod MD #[address] [address] Discharge Disposition: Discharged to home or Selfcare 03/19/2025 2:00 PM GALLEY WORKER Office Visit [facility] Endocrinology - [place] #[address] [place] [address] Annel Rod MD [address] [place] [address] 05/29/2025 1:30 PM GALLEY WORKER Office Visit [facility] Family Medicine [facility] [address] [facility] [address] Justen Gale MD [address] [address] documented as of this encounter Visit Diagnoses Not on filedocumented in this encounter Additional Health Concerns Infection Onset Date Last Indicated Resolved Time Respiratory Rule-Out 11/18/2024 11/18/2024 025 7:18 AM CDT Assessment Noted Time PHQ-9 Depression Total Score: 0 08/02/19 25 1:09 PM CDT documented as of this encounter Care Teams Ethnographic Materials Conservator Relationship Specialty Start Date End Date Justen Gale MD [address] [address] PCP - General Family Medicine 10/17/17 David Roberts APRN, ADMITTANCE ATTENDANT #[address] [place] [address] Nurse Practitioner Advanced Practice Nurse 01/31/22 Annel Rod MD #[address] [address] Consulting Physician Endocrinology 07/01/22 documented as of this encounter
--- OUTSIDE RECORDS SUMMARY | 2024-12-23 12:52 | XMS_ITS ---
Author Organization [facility] Address [address] [facility] [address] Care Team Providers Care Pharmacologist Name Role Phone Justen Gale MD Primary [...]
--- OUTSIDE RECORDS SUMMARY | 2024-12-23 12:52 | XMS_ITS | Encounter Summary ---
Author Organization [facility] Address [address] [place] [address] Phone Care Team Providers Care Multi Purpose Machine Operator Name Role Phone Justen Gale MD Primary Care Provider David Roberts APRN, FUNCTIONAL DIRECTOR Unavailable [phone] Annel Rod MD Unavailable Reason for Visit * Reason Comments Medication Refill Encounter Details Date Type Department Care Team (Late st Contact Info) Description 08/07/2023 Refill [facility] - [place] #2 [place] [address] Annel Rod MD #[address] [address] Medication Refill Social History Tobacco [...] Description 01/13/2025 2:45 PM CDT Office Visit [facility] #[address] [place] [address] Pili Elkins APRN, FUNCTIONAL DIRECTOR #[address] [address] David Roberts APRN, FUNCTIONAL DIRECTOR [address] [place] [address] 01/21/2025 2:00 PM CDT Appointment [facility] Ul[facility]ound 1 [place] [address] Annel Rod MD #[address] [phone] Discharge Disposition: Discharged to home or Selfcare 03/19/2025 2:00 PM PRIVATE CLIENT ADVISOR Office Visit [facility] - [place] #[address] [place] [address] Annel Rod MD #[address] [place] [address] 05/29/2025 1:30 PM PRIVATE CLIENT ADVISOR Office Visit [facility] [address] [place] [address] Justen Gale MD #[address] [address] documented as of this encounter Visit Diagnoses Not on filedocumented in this encounter Additional Health Concerns Infection Onset Date Last Indicated Resolved Time COVID - 19 08/01/2024 08/01/2024 08/01/2024 3:20 PM CDT Respiratory Rule-Out 11/18/2024 11/18/2024 025 7:18 AM CDT Assessment Noted Time PHQ-9 Depression Total Score: 8 01/18/20 23 2:24 PM CDT documented as of this encounter Care Teams Multi Purpose Machine Operator Relationship Specialty Start Date End Date Justen Gale MD [address] [address] PCP - General Family Medicine 10/17/17 David Roberts APRN, NETTA [address] [place] [address] Nurse Practitioner Advanced Practice Nurse 01/31/22 Annel Rod MD #[address] [address] Consulting Physician Endocrinology 07/01/22 documented as of this encounter
--- OUTSIDE RECORDS SUMMARY | 2024-12-23 12:52 | XMS_ITS | Encounter Summary ---
Author Organization [facility] Address [address] [place] [address] Phone Care Team Providers Care Snuff Packing Machine Operator Name Role Phone Justen Gale MD Primary Care Provider David Roberts APRN, AIR FORCE PILOT Unavailable Annel Rod MD Unavailable Reason for Visit * Reason Onset Date Comments Advice Only 11/21/2023 Encounter Details Date Type Department Care Team (Late st Contact Info) Description 11/21/2023 Telephone [facility] [address] [place] [address] Justen Gale MD #[address] [address] Advice Only Social History Tobacco Use Types [...] Description 01/13/2025 2:45 PM CDT Office Visit [facility] UR[facility]Y #2 [place] [address] Pili Elkins, NEUROLOGY DIRECTOR, AIR FORCE PILOT #[address] [phone] David Roberts, NEUROLOGY DIRECTOR, AIR FORCE PILOT #2 [place] [address] 01/21/2025 2:00 PM CDT Appointment [facility] Ultrasound 1 [place] [phone] Annel Rod MD #[address] [phone] Discharge Disposition: Discharged to home or Selfcare 03/19/2025 2:00 PM EDITORIAL ASSISTANT Office Visit [facility] - Endocrinology [facility] #2 [place] [address] Annel Rod MD [address] [address] 05/29/2025 1:30 PM EDITORIAL ASSISTANT Office Visit [facility] [place] [address] Justen Gale MD #[address] [address] documented as of this encounter Visit Diagnoses Not on filedocumented in this encounter Additional Health Concerns Infection Onset Date Last Indicated Resolved Time COVID - 19 08/01/2024 08/01/2024 08/01/2024 3:20 PM CDT Respiratory Rule-Out 11/18/2024 11/18/2024 025 7:18 AM CDT Assessment Noted Time PHQ-9 Depression Total Score: 8 01/18/20 23 2:24 PM CDT documented as of this encounter Care Teams Snuff Packing Machine Operator Relationship Specialty Start Date End Date Justen Gale MD [address] [address] PCP - General Family Medicine 10/17/17 David Roberts APRN, AIR FORCE PILOT #2 [place] [address] Nurse Practitioner Advanced Practice Nurse 01/31/22 Annel Rod MD #[address] [address] Consulting Physician Endocrinology 07/01/22 documented as of this encounter
--- OUTSIDE RECORDS SUMMARY | 2024-12-23 12:52 | XMS_ITS | Encounter Summary ---
Author Organization [facility] Address [address] [place] [address] Phone Care Team Providers Care Advertising Solicitor Name Role Phone Justen Gale MD Primary Care Provider David Roberts APRN, SEISMOGRAPH OBSERVER Unavailable [phone] Annel Rod MD Unavailable Reason for Visit * Reason Comments Medication Refill Encounter Details Date Type Department Care Team (Late st Contact Info) Description 03/02/2023 Refill [facility] - Family [facility] #2 [place] [phone] Justen Gale MD #[address] [address] Medication Refill Social History Tobacco Use Types [...] Tamika Villarreal RN - 03/02/2023 8:51 AM HIGH SCHOOL HOME ECONOMICS TEACHER Medication failed the protocol, provider to review [...] Dept 01/17/23 Office Visit Catrina Qu[facility] 09/16/22 Office Visit Pili Elkins APRN, CNP [place] 07/05/22 Office Visit Pili Elkins APRN, CNP [place] 05/02/22 Office Visit Justen Gale MD [facility] 03/03/22 Office Visit Pili Elkins APRN, NETTA [facility] Showing recent visits within past 365 days and meeting all other requirements Future Appointments No visits were found meeting these conditions. Showing future appointments within next 90 days and meeting all other requirements SCHOOL HOME ECONOMICS TEACHER documented in this encounter Plan of Treatment Upcoming Encounters Date Type Department Care Team (Late st Contact Info) Description 01/13/2025 2:45 PM CDT Office Visit [facility] #2 [place] [address] Pili Elkins APRN, SEISMOGRAPH OBSERVER #[address] [address] David Roberts APRN, SEISMOGRAPH OBSERVER #2 [place] [address] 01/21/2025 2:00 PM CDT Appointment [facility] Ultrasound 1 [place] [address] Annel Rod MD #[address] [address] Discharge Disposition: Discharged to home or Selfcare 03/19/2025 2:00 PM HIGH SCHOOL HOME ECONOMICS TEACHER Office Visit [facility] - Endocrinology [facility] #2 [place] [address] Annel Rod MD #[address] [address] 05/29/2025 1:30 PM HIGH SCHOOL HOME ECONOMICS TEACHER Office Visit [facility] - Family Medicine [facility] #2 [place] [address] Justen Gale MD #[address] [address] documented as of this encounter Visit Diagnoses Not on filedocumented in this encounter Additional Health Concerns Infection Onset Date Last Indicated Resolved Time COVID - 19 08/01/2024 08/01/2024 08/01/2024 3:20 PM CDT Respiratory Rule-Out 11/18/2024 11/18/2024 025 7:18 AM CDT Assessment Noted Time PHQ-9 Depression Total Score: 8 01/18/20 23 2:24 PM CDT documented as of this encounter Care Teams Advertising Solicitor Relationship Specialty Start Date End Date Justen Gale MD #[address] [address] PCP - General Family Medicine 10/17/17 David Roberts APRN, NETTA #2 [place] [address] Nurse Practitioner Advanced Practice Nurse 01/31/22 Annel Rod MD #2 [facility] [address] [place] [address] Consulting Physician Endocrinology 07/01/22 documented as of this encounter
--- OUTSIDE RECORDS SUMMARY | 2024-12-23 12:52 | XMS_ITS | Encounter Summary ---
Author Organization [facility] Address [address] [place] [address] Phone Care Team Providers Care Acid Conditioner Name Role Phone Liu Jerez MD Unavailable [phone] Albert Corbin MD Unavailable Justen Gale MD Primary Care Provider [phone] Khris Arthur MD Unavailable [phone] Ko Melendez MD Unavailable John Paul Moyer MD Unavailable Annel Rod MD Unavailable Anali MARSHALL MD, Carlos M. Unavailable [phone] Encounter Details Date Type Department Care Team [...] Legal Sex Female 12:24 AM REAL ESTATE MARKETING COORDINATOR Gender Identity Not on file Sexual [...] COVID: Recovered 02/10/2022 02/10/2022 06/10/2022 3:05 AM REAL ESTATE MARKETING COORDINATOR Exposure, COVID-19 Comment:Added automatically based on COVID19 lab answers indicating exposure risk 02/11/2022 02/11/2022 02/15/2022 9:06 AM C DT COVID: Suspected 05/14/2022 05/14/2022 05/14/2022 10:41 AM REAL ESTATE MARKETING COORDINATOR COVID: Suspected 06/07/2022 06/07/2022 06/07/2022 12:28 PM REAL ESTATE MARKETING COORDINATOR COVID: Suspected 06/21/2022 06/21/2022 06/21/2022 2:12 AM REAL ESTATE MARKETING COORDINATOR COVID: Suspected 10/05/2022 10/05/2022 10/05/2022 7:40 PM CDT COVID: Suspected 01/04/2024 01/04/2024 01/04/2024 10:30 PM CDT COVID: Suspected 02/14/2024 02/14/2024 02/15/2024 12:36 AM CDT COVID: Suspected 07/01/2024 07/01/2024 07/01/2024 2:53 PM CDT COVID: Suspected 07/01/2024 07/01/2024 07/02/2024 3:05 AM CDT COVID: Suspected 12/08/2024 12/08/2024 12/08/2024 1:50 AM CDT documented as of this encounter Care Teams Acid Conditioner Relationship Specialty Start Date End Date Justen Gale MD [address] [address] PCP - General 10/09/17 Liu Jerez MD Consulting Physician Gastroenterology 07/28/17 [place] [address] [facility] [address] [place] [address] Consulting Physician Pulmonary Disease 08/03/17 Khris Arthur MD [address] [facility] [address] [place] [address] Medical Oncologist/Truck Driver Salesperson Medical Oncology 10/23/17 [place] [address] [facility] [address] [place] [address] Surgeon Orthopedic Surgery 10/23/17 [place] [address] [facility] [address] [place] [address] Consulting Physician Pain Management 10/23/17 [place] [address] [facility] [address] [place] [address] Referring Physician General Surgery 01/26/18 [place] [address] [facility] [address] [place] [address] Consulting Physician Neurology 01/26/18 documented as of this encounter
--- OUTSIDE RECORDS SUMMARY | 2024-12-23 12:52 | XMS_ITS | Encounter Summary ---
Author Organization [facility] Address [address] [place] [address] Phone Care Team Providers Care Vice President Global Advertising Sales Name Role Phone Justen Gale MD Primary Care Provider [phone] David Roberts APRN, FOOT MITER OPERATOR Unavailable Annel Rod MD Unavailable Reason for Visit * Reason Comments Medication Refill Encounter Details Date Type Department Care Team (Late st Contact Info) Description 03/05/2023 Refill [facility] - Family Medicine [facility] #2 [place] [address] Pili Elkins APRN, FOOT MITER OPERATOR #[address] [address] Medication Refill Social History Tobacco [...] discontinued on 10/19/2022 by Justen Gale MD OYEE COUNSELOR documented in this encounter Plan of Treatment Upcoming Encounters Date Type Department Care Team (Late st Contact Info) Description 01/13/2025 2:45 PM CDT Office Visit [facility] UR[facility]Y #2 [place] [address] Pili Elkins APRN, FOOT MITER OPERATOR #[address] [address] David Roberts APRN, FOOT MITER OPERATOR #2 [place] [address] 01/21/2025 2:00 PM CDT Appointment [facility] Ultrasound 1 [place] [address] Annel Rod MD #[address] [address] Discharge Disposition: Discharged to home or Selfcare 03/19/2025 2:00 PM EMPLOYEE COUNSELOR Office Visit [facility] - Endocrinology [facility] #2 [place] [address] Annel Rod MD #[address] [address] 05/29/2025 1:30 PM EMPLOYEE COUNSELOR Office Visit [facility] - [facility] #2 [place] [address] Justen Gale MD #[address] [address] documented as of this encounter Visit Diagnoses [...] of this encounter Care Teams Vice President Global Advertising Sales Relationship Specialty Start Date End Date Justen Gale MD #[address] [address] PCP - General Family Medicine 10/17/17 David Roberts, STONE PRODUCT FABRICATOR, FOOT MITER OPERATOR #2 [place] [address] Nurse Practitioner Advanced Practice Nurse 01/31/22 Annel Rod MD #[address] [address] Consulting Physician Endocrinology 07/01/22 documented as of this encounter
--- OUTSIDE RECORDS SUMMARY | 2024-12-23 12:52 | XMS_ITS | Encounter Summary ---
Author Organization [facility] Address [address] [place] [address] Phone Care Team Providers Care Evaluation Engineer Name Role Phone Justen Gale MD Primary Care Provider [phone] David Roberts APRN, OUTSOLE PARAFFINER Unavailable Annel Rod MD Unavailable Reason for Visit * Reason Comments Medication Refill Encounter Details Date Type Department Care Team (Late st Contact Info) Description 10/24/2022 Refill [facility] - Family Medicine [facility] #2 [place] [address] Pili Elkins APRN, OUTSOLE PARAFFINER #[address] [address] Medication Refill Social History Tobacco [...] Description 01/13/2025 2:45 PM CDT Office Visit [facility] UR[facility]Y #2 [place] [address] Pili Elkins APRN, OUTSOLE PARAFFINER #[address] [address] David Roberts APRN, OUTSOLE PARAFFINER #2 [place] [address] 01/21/2025 2:00 PM CDT Appointment [facility] Ultrasound 1 [place] [address] Annel Rod MD #[address] [address] Discharge Disposition: Discharged to home or Selfcare 03/19/2025 2:00 PM WASH MILL OPERATOR Office Visit [facility] - Endocrinology [facility] #2 [place] [address] Annel Rod MD #[address] [address] 05/29/2025 1:30 PM WASH MILL OPERATOR Office Visit [facility] - Family Medicine [place] #2 [place] [address] Justen Gale MD #[address] [place] [address] documented as of this encounter Visit Diagnoses Diagnosis Essential hypertension Unspecified essential hypertension documented in this encounter Additional Health Concerns Infection Onset Date Last Indicated Resolved Time COVID - 19 08/01/2024 08/01/2024 08/01/2024 3:20 PM CDT Respiratory Rule-Out 11/18/2024 11/18/2024 025 7:18 AM CDT Assessment Noted Time PHQ-9 Depression Total Score: 0 09/17/19 11:00 AM CDT documented as of this encounter Care Teams Evaluation Engineer Relationship Specialty Start Date End Date Justen Gale MD #[address] [address] PCP - General Family Medicine 10/17/17 David Roberts, CHIEF ACCOUNTANT, OUTSOLE PARAFFINER #2 [place] [address] Nurse Practitioner Advanced Practice Nurse 01/31/22 Annel Rod MD #[address] [address] Consulting Physician Endocrinology 07/01/22 documented as of this encounter
--- OUTSIDE RECORDS SUMMARY | 2024-12-23 12:52 | XMS_ITS | Encounter Summary ---
Author Organization [facility] Address [address] [place] [address] Phone Care Team Providers Care Nutrition Professor Name Role Phone Justen Gale MD Primary Care Provider [phone] David Roberts APRN, CRITICAL CARE NURSE SPECIALIST Unavailable Annel Rod MD Unavailable Reason for Visit * Reason Onset Date Comments Sore Throat 06/29/2020 Encounter Details Date Type Department Care Team (Late st Contact Info) Description 06/29/2020 Telephone [facility] - [facility] [place] #2 [place] [address] Justen Gale MD #[address] [address] Sore Throat Social History Tobacco Use Types [...] COVID-19? No / Unsure 06/29/2020 8:43 AM RETAIL SALES CONSULTANT documented as of this encounter Miscellaneous Notes * Telephone Encounter - Gail Lucero RN - 06/29/2020 3:53 PM CST Attempted to call mailbox is full. Pt does not need testing [place] SALES CONSULTANT * Telephone Encounter - Vince Hermosillo MD - 06/29/2020 3:13 PM CST No covid testing needed. If the er thought that it was warranted then they would have done this. [place]SULT[place] * Telephone Encounter - Marlys Sorensen RN - 06/29/2020 8:36 AM CST Patient calling. Patient is calling to schedule Hospital/ED/Prompt-Care follow up appointment. Hospital/ED/Prompt-[facility] Site: [facility] ED Records Requested: Yes Reason [...] f/up and yearly PAP appointments? Please advise. [place] SALES CONSULTANT documented in this encounter Plan of Treatment Upcoming Encounters Date Type Department Care Team (Late st Contact Info) Description 01/13/2025 2:45 PM CDT Office Visit [facility] #2 [place] [address] Pili Elkins, STUDENT SERVICES COORDINATOR, CRITICAL CARE NURSE SPECIALIST #[address] [address] David Roberts APRN, CRITICAL CARE NURSE SPECIALIST #2 [place] [address] 01/21/2025 2:00 PM CDT Appointment [facility] Ultrasound 1 [place] [address] Annel Rod MD #[address] [address] Discharge Disposition: Discharged to home or Selfcare 03/19/2025 2:00 PM RETAIL SALES CONSULTANT Office Visit [facility] Endocrinology [facility] #2 [facility] [place] [address] Annel Rod MD #[address] [address] 05/29/2025 1:30 PM RETAIL SALES CONSULTANT Office Visit [facility] Family Medicine [facility] #2 [place] [address] Justen Gale MD #[address] [address] documented as of this encounter Visit Diagnoses Not on filedocumented in this encounter Additional Health Concerns Infection Onset Date Last Indicated Resolved Time COVID - 19 08/01/2024 08/01/2024 08/01/2024 3:20 PM CDT Respiratory Rule-Out 11/18/2024 11/18/2024 025 7:18 AM CDT Assessment Noted Time PHQ-9 Depression Total Score: 0 09/08/19 19 1:00 PM CDT documented as of this encounter Care Teams Nutrition Professor Relationship Specialty Start Date End Date Justen Gale MD #[address] [address] PCP - General Family Medicine 10/17/17 David Roberts STUDENT SERVICES COORDINATOR, CRITICAL CARE NURSE SPECIALIST #2 [place] [address] Nurse Practitioner Advanced Practice Nurse 01/31/22 Annel Rod MD #[address] [place] [address] Consulting Physician Endocrinology 07/01/22 documented as of this encounter
--- OUTSIDE RECORDS SUMMARY | 2024-12-23 12:52 | XMS_ITS | Encounter Summary ---
Author Organization [facility] Address [address] [place] [address] Phone Care Team Providers Care Systems Requirements Planner Name Role Phone Justen Gale MD Primary Care Provider David Roberts APRN, SAUSAGE STRINGER Unavailable [phone] Annel Rod MD Unavailable Reason for Visit * Reason Comments Medication Refill Encounter Details Date Type Department Care Team (Late st Contact Info) Description 07/12/2022 Refill [facility] - Family Medicine [facility] #2 [place] [address] Justen Gale MD #[address] [address] Medication Refill Social History Tobacco Use Types [...] Visit Pili Elkins APRN, NETTA [facility] [place] 05/02/22 Office Visit Justen Gale MD [facility] [place] 03/03/22 Office Visit Pili Elkins APRN, SAUSAGE STRINGER [facility] [place] 01/03/22 Office Visit Dannielle Berg PAC [facility] [place] 12/07/21 Office Visit Pili Elkins APRN, NETTA [facility] [place] 11/09/21 Office Visit Pili Elkins APRN, NETTA [facility] [place] 10/08/21 Office Visit Angelito Alegria APRN, NETTA [facility] [place] 08/30/21 Office Visit Justen Gale MD [...] Description 01/13/2025 2:45 PM CDT Office Visit [facility] PHYSICIAN [facility] UROLOGY #2 [place] [address] Pili Elkins APRN, SAUSAGE STRINGER #[address] [address] David Roberts APRN, SAUSAGE STRINGER #2 [place] [address] 01/21/2025 2:00 PM CDT [facility]ointment [facility] Ul[facility]ound 1 [place] [address] Annel Rod MD #[address] [address] Discharge Disposition: Discharged to home or Selfcare 03/19/2025 2:00 PM LABEL PASTER Office Visit [facility] - Endocrinology [facility] #2 [place] [address] Annel Rod MD #[address] [address] 05/29/2025 1:30 PM LABEL PASTER Office Visit [facility] - Family Medicine - [place] #2 [place] [address] Justen Gale MD #[address] [address] documented as of this encounter Visit Diagnoses Not on filedocumented in this encounter Additional Health Concerns Infection Onset Date Last Indicated Resolved Time COVID - 19 08/01/2024 08/01/2024 08/01/2024 3:20 PM CDT Respiratory Rule-Out 11/18/2024 11/18/2024 025 7:18 AM CDT Assessment Noted Time PHQ-9 Depression Total Score: 0 07/21/19 21 3:00 PM CDT documented as of this encounter Care Teams Systems Requirements Planner Relationship Specialty Start Date End Date Justen Gale MD #2 [facility] [address] [place] [address] PCP - General Family Medicine 10/17/17 David Roberts APRN, SAUSAGE STRINGER #2 [place] [address] Nurse Practitioner Advanced Practice Nurse 01/31/22 Annel Rod MD #2 [facility] [address] [place] [address] Consulting Physician Endocrinology 07/01/22 documented as of this encounter
--- OUTSIDE RECORDS SUMMARY | 2024-12-23 12:52 | XMS_ITS | Encounter Summary ---
Author Organization [facility] Address [address] [place] [address] Phone Care Team Providers Care Inspector Hairspring Name Role Phone Justen Gale MD Primary Care Provider David Roberts APRN, SUPERVISOR FILES Unavailable Annel Rod MD Unavailable Reason for Visit * Reason Comments Medication Refill Encounter Details Date Type Department Care Team (Late st Contact Info) Description 02/17/2021 Refill [facility] - Family [facility] #2 [place] [address] Justen Gale MD #[address] [address] Medication Refill Social History Tobacco Use Types [...] [place] 06/05/20 Office Visit Pili Elkins APRN, SUPERVISOR FILES [facility] Showing recent visits within past 365 days and meeting all other requirements Future Appointments Date Type Provider Dept 03/02/21 Appointment Vince Hermosillo MD [facility] Showing future appointments within next 90 days and meeting all other requirements documented in this encounter Plan of Treatment Upcoming Encounters Date Type Department Care Team (Late st Contact Info) Description 01/13/2025 2:45 PM CDT Office Visit [facility] UROLOGY #2 [place] [address] Pili Elkins APRN, SUPERVISOR FILES #2 [facility] [address] [place] [address] David Roberts APRN, SUPERVISOR FILES #2 [place] [address] 01/21/2025 2:00 PM CDT [facility] 1 [place] [address] Annel Rod MD #[address] [phone] Discharge Disposition: Discharged to home or Selfcare 03/19/2025 2:00 PM GASOLINE ENGINE ASSEMBLER Office Visit [facility] - [facility]ocr[facility]ology [facility] #2 [place] [address] Annel Rod MD #[address] [address] 05/29/2025 1:30 PM GASOLINE ENGINE ASSEMBLER Office Visit [facility] - Family Medicine - [place] #2 [place] [address] Justen Gale MD #2 [facility] [address] [place] [address] documented as of this encounter Visit Diagnoses Not on filedocumented in this encounter Additional Health Concerns Infection Onset Date Last Indicated Resolved Time COVID - 19 08/01/2024 08/01/2024 08/01/2024 3:20 PM CDT Respiratory Rule-Out 11/18/2024 11/18/2024 025 7:18 AM CDT Assessment Noted Time PHQ-9 Depression Total Score: 0 07/21/19 21 3:00 PM CDT documented as of this encounter Care Teams Inspector Hairspring Relationship Specialty Start Date End Date Justen Gale MD #[address] [address] PCP - General Family Medicine 10/17/17 David Roberts, KEY RINGER, SUPERVISOR FILES #2 [place] [address] Nurse Practitioner Advanced Practice Nurse 01/31/22 Annel Rod MD #[address] [address] Consulting Physician Endocrinology 07/01/22 documented as of this encounter
--- OUTSIDE RECORDS SUMMARY | 2024-12-23 12:52 | XMS_ITS | Encounter Summary ---
Author Organization [facility] Address [address] [place] [address] Phone Care Team Providers Care Dairy Husbandman Name Role Phone Justen Gale MD Primary Care Provider [phone] David Roberts APRN, INSURANCE VERIFICATION SPECIALIST Unavailable Annel Rod MD Unavailable Reason for Visit * Reason Onset Date Comments Pain 09/23/2024 Encounter Details Date Type Department Care Team (Late st Contact Info) Description 09/23/2024 Telephone [facility] [address] [place] [address] Justen Gale MD [address] [address] Pain Social History Tobacco Use Types Packs/Day Years Used Date Smoking Tobacco: Never Smokeless Tobacco: Never Alcohol Use Standard Drinks/Week Comments No 0 (1 standard drink = 0.6 oz pur e alcohol) [facility] Utilities Answer Date Recorded In the past 12 months has [employer] electric, gas, oil, or water company [...] Score - Questions 1-9 0 07/23 [facility] - Occupational [...] - patient has RA Outcome: Transfer to rn corrections queue Reason: Caller denied all higher acuity questions The caller accepted this outcome. Caller Denied: * Chest pain * Headache * Eye pain * Abdominal pain * Genital pain documented in this encounter Plan of Treatment Upcoming Encounters Date Type Department Care Team (Late st Contact Info) Description 01/13/2025 2:45 PM CDT Office Visit [facility] [address] [place] [address] Pili Elkisn APRN, INSURANCE VERIFICATION SPECIALIST #[address] [address] David Roberts APRN, INSURANCE VERIFICATION SPECIALIST [address] [place] [address] 01/21/2025 2:00 PM CDT Appointment [facility] Ultrasound [address] [place] [address] Annel Rod MD #[address] [address] Discharge Disposition: Discharged to home or Selfcare 03/19/2025 2:00 PM DATABASE ENGINEER Office Visit [facility] - [place] [address] [place] [address] Annel Rod MD [address] [address] 05/29/2025 1:30 PM DATABASE ENGINEER Office Visit [facility] Family Medicine [facility] [address] [place] [address] Justen Gale MD [address] [address] documented as of this encounter Visit Diagnoses Not on filedocumented in this encounter Additional Health Concerns Infection Onset Date Last Indicated Resolved Time Respiratory Rule-Out 11/18/2024 11/18/2024 025 7:18 AM CDT Assessment Noted Time PHQ-9 Depression Total Score: 0 08/02/19 25 1:09 PM CDT documented as of this encounter Care Teams Dairy Husbandman Relationship Specialty Start Date End Date Justen Gale MD [address] [address] PCP - General Family Medicine 10/17/17 David Roberts APRN, INSURANCE VERIFICATION SPECIALIST [address] [place] [address] Nurse Practitioner Advanced Practice Nurse 01/31/22 Annel Rod MD [id number] [address] Consulting Physician Endocrinology 07/01/22 documented as of this encounter
--- OUTSIDE RECORDS SUMMARY | 2024-12-23 12:52 | XMS_ITS | Clinical Summary ---
Author Organization [facility] Address [address] [place] [address] Phone Care Team Providers Care Senior Research Engineer Name Role Phone Justen Gale MD Primary Care Provider David Roberts APRN, COKE CRANE OPERATOR Unavailable Annel Rod MD Unavailable Allergies [...] complication, without long-term current use of insulin ([facility]) Diagnosis: Diabetes Type 2 Blood testing frequency: 4 times a day 1 Each 11/22/19 18 Active Glucose Blood (ONE TOUCH ULTRA TEST) Strip Test four times daily. 400 Strip 3 02/11/20 20 Active Misc. Devices MiscIndications :LUL (obstructive sleep apnea) Supply and instructions: 1 Each 09/10/19 21 Active OneTouch Delica Lancets 33G [facility] 1 Lancet by Does not [...] 10/18/19 25 Active predniSONE (DELTASONE) 5 MG TabletIndicatio ns:Polymyalgia rheumatica (HCC) Take 1.5 Tablets by mouth [...] mg by mouth daily. 11/20/19 25 Active amoxicillin-cla vulanate (AUGMENTIN) 875-125 MG Tablet Take 1 Tablet by mouth 2 times daily. 11/20/19 25 Active pantoprazole (PROTONIX) 40 MG Tablet Delayed Response Take 40 mg by mouth daily. Active oxybutynin (DITROPAN-XL) 10 MG TABLET SR 24 HRIndications:O AB (overactive bladder) Take 1 Tablet by mouth daily. 30 Tablet 1 11/26/19 25 Active spironolactone (ALDACTONE) 25 MG Tablet Take 25 mg by mouth daily. Active oxybutynin (DITROPAN XL) 15 MG TABLET SR 24 HR Take 10 mg by mouth daily. 03/07 025 Discontin ued(Reord er) HumaLOG KwikPen 100 UNIT/ML Solution Pen-injector ADMINSTER 22 UNITS UNDER THE SKIN BEFORE EACH MEAL, ISF OF 1:15 OF IF> 150MG/DL MAX DAILY DOSE OF 100 UNITS 30 mL 1 03/07/20 025 Discontin ued(Med List Clean Up) montelukast (SINGULAIR) 10 MG TabletIndicatio ns:Seasonal Allergic Rhinitis Take 1 Tablet by mouth every evening. Indications: Hayfever 90 Tablet 09/07/19 025 Discontin ued(Med List Clean Up) clotrimazole (MYCELEX) 10 MG TrocheIndicatio ns:Oropharyngea l Candidiasis Take 1 Rozina by mouth 5 times daily. Indications: Candidiasis Fungal Infection of the Oropharynx 50 Rozina 09/07/19 025 Discontin ued(Med List Clean Up) Active Problems Problem Noted Date Diagnosed Date [...] Overview: Added automatically from request for surgery [id number] Lymphedema of left upper extremity 08/09/2016 Pulmonary embolism 08/09/2016 Overview (11/09/2017): Last Assessment & Plan: On Rivaroxaban Arthralgia of ankle 01/26/2015 Resolved Problems Problem Noted Date Diagnosed Date Resolved Date Cellulitis of breast 11/11/2014 025 Encounters Date Type Department Care Team Description 12/19/2024 Telephone [facility] Family Medicine [facility] [address] [place] [address] Justen Gale MD 12/18/2024 Telephone [facility] [address] [place] [phone] Justen Gale MD Results 12/17/2024 3:30 PM CDT Office Visit [facility] - Endocrinology [facility] [address] [place] [address] Annel Rod MD Type 2 diabetes mellitus with diabetic polyneuropathy, with long-term current use of insulin (HCC) (Primary Dx); Insulin dose changed (HCC); Thyroid nodule; Class 3 severe obesity due to excess calories with serious comorbidity and body mass index (BMI) of 50.0 to 59.9 in adult Discharge Disposition: Discharged to home or Selfcare 12/17/2024 2:15 PM CDT - 12/17/2024 11:59 PM CDT [facility] [address] [place] [phone] Justen Gale MD Discharge Disposition: Discharged to home or Selfcare 12/17/2024 Travel 12/14/2024 Nurse Triage [facility] [address] [place] [phone] Justen Gale MD Nausea; Shortness of Breath; Dizziness; Generalized Weakness 12/14/2024 Telephone [facility] [address] [place] [phone] Justen Gale MD Advice Only 12/06/2024 Telephone [facility] [address] [place] [phone] Justen Gale MD Post-Hospital Follow-up 11/25/2024 10:00 AM CDT Office Visit [facility] Family Medicine [facility] [address] [place] [phone] Pili Elkins APRN, NETTA Acute diastolic congestive heart failure (HCC) (Primary Dx); Type 2 diabetes mellitus with diabetic polyneuropathy, with long-term current use of insulin (HCC); OAB (overactive bladder); Polymyalgia rheumatica (HCC) Discharge Disposition: Discharged to home or Selfcare 11/25/2024 Travel 11/21/2024 Nurse Triage [facility] [address] [place] [phone] Justen Gale MD Advice Only; Urinary Frequency 11/21/2024 MyChart RX Renewal [facility] Endocrinology [facility] [address] [place] [phone] Annel Rod MD Medication Renewal Reviewed 11/21/2024 MyChart RX Renewal [facility] [address] [place] [phone] Justen Gale MD Medication Renewal Declined 11/21/2024 [facility] [place] [address] Pili Elkins APRN, NETTA Medication Renewal Reviewed 11/20/2024 [facility] [address] [place] [phone] Justen Gale MD Shortness of Breath 11/20/2024 Telephone [facility] [address] [place] [phone] Justen Gale MD Post-Hospital Follow-up ([facility]) 11/14/2024 Telephone [facility] [address] [place] [phone] Justen Gale MD Follow-up 11/14/2024 [facility] [address] [place] [phone] Justen Gale MD 11/07/2024 Nurse Triage [facility] [address] [place] [phone] Justen Gale MD Advice Only; Fatigue; Shortness of Breath 11/06/2024 MyChart RX Renewal [facility] [address] [place] [phone] Justen Gale MD Medication Renewal Declined 11/05/2024 [facility] [place] [phone] Justen Gale MD Medication Refill 10/28/2024 [facility] [place] [phone] Justen Gale MD Medication Renewal Reviewed 10/17/2024 [facility] [place] [phone] Anenl Rod MD Medication Refill 10/08/2024 [facility] [address] [place] [phone] Justen Gale MD Abdominal Pain 09/30/2024 MyChart RX Renewal [facility] [address] [place] [phone] Dulce Wolff, WHEAT INSPECTOR, COKE CRANE OPERATOR Medication Renewal Reviewed 09/29/2024 [facility] [address] [place] [phone] Justen Gale MD Urinary Tract Infection 09/23/2024 [facility] [address] [place] [phone] Justen Gale MD Breathing Problem; Pain 09/23/2024 [facility]phone [facility] [address] [place] [phone] Justen Gale MD Pain from Last 3 Months Immunizations Immunization Administration Dates Next Due Covid-19 Vaccine, Vector-nr, Rs-ad26, Pf, 0.5 Ml ([employer]) 06/29/2020 Influenza Vaccine greater than 3 yrs [...] Recorded In the past 12 months has [employer] electric, gas, oil, or water company threatened [...] Total Score - Questions 1-9 0 07/23 [facility] Occupat ional Health - Occupational Stress [...] Sign Reading Time Taken Comments Blood Pressure 132/70 12/17/2024 3:07 PM CDT Pulse 79 12/17/2024 3:07 PM CDT Temperature 36.3 C (97.4 F) 12/17/2024 3:07 PM CDT Respiratory Rate 22 12/17/2024 3:07 PM CDT Oxygen Saturation 95% 12/17/2024 3:07 PM CDT Inhaled Oxygen Concentration - - Weight 129.9 kg (286 lb 4.8 oz) 09/06/2024 1:29 PM CDT Height 152.4 cm (5') 11/25/2024 9:59 AM CDT Body Mass Index 55.91 09/06/2024 1:29 PM CDT Plan of Treatment Upcoming Encounters Date Type Department Care Team (Late st Contact Info) Description 01/13/2025 2:45 PM CDT Office Visit [facility] #[address] [place] [phone] Pili Elkins APRN, COKE CRANE OPERATOR #[address] [phone] David Roberts APRN, COKE CRANE OPERATOR [address] [place] [address] 01/21/2025 2:00 PM CDT Appointment [facility] Ultrasound [address] [place] [phone] Annel Rod MD #[address] [phone] Discharge Disposition: Discharged to home or Selfcare 03/19/2025 2:00 PM DRAIN CLEANER Office Visit [facility] [place] [address] [place] [phone] Annel Rod MD #[address] [phone] 05/29/2025 1:30 PM DRAIN CLEANER Office Visit [facility] [place] [address] [place] [address] Justen Gale MD #[address] [phone] Health Maintenance Due Date Last Done Comments Diabetes: Eye Exam 1956 Pneumococcal Immunization (50+ years) (1 of 2 - PCV) 1975 Zoster Immunization (1 of 2) 1975 Cologuard 2001 Respiratory Syncytial Virus (RSV) Immunization (Adult) (1 - Risk 60-74 years 1-dose series) 2016 Immunochemical Fecal Occult Blood 09/08/2019 09/07/2018, 08/31/2018 Diabetes: Foot Exam 08/12/2020 08/13/2019, 08/07/2019, 06/18/2019, Additional history exists DEXA Bone Density 08/02/2024 08/02/2022, 11/10/2020 Influenza Immunization (#1) 12/23/202412/24, 01/17/2023, 01/03/2022, Additional history exists SARS-COV-2 Immunization ( - season) 2024 05/04/2021, 06/29/2020 Colonoscopy 01/08/2025 01/09/2020, 08/23, 09/09/2018 Colorectal Cancer Screening 01/08/2025 Diabetes: Hemoglobin A1c 06/06/2025 025, 05/21/2024, 10/14/2023, Additional history exists Diabetes: Nephropathy Screening 11/18/2025 11/18/2024, 11/07/2024, 11/07/2024, Additional history exists Td Immunization Every 10 [...] Diagnosis Comments XR CHEST 2 VIEWS Routine 12/17/2024 2:58 PM CDT Acute diastolic congestive heart failure (HCC) XR - CHEST 11/27/2024 12:00 AM CDT PAIN CONSULT 11/21/2024 12:00 AM CDT CARDIOLOGY CONSULT 11/18/2024 12 :00 AM CDT LAB - MISCELLANEOUS 11/18/2024 1 2:00 AM CDT B-TYPE NATRIURETIC PEPTIDE (BNP) 11/18/2024 12:00 AM CDT LACTIC ACID (LACTATE) 11/18/2024 12:00 AM CDT GLUCOSE 11/18/2024 12:00 AM CDT C-REACTIVE PROTEIN (CRP) QUANT 11/18/2024 12:00 AM CDT TROPONIN I (TRP I) 11/18/2024 12 :00 AM CDT URIC ACID (BLOOD ASSAY) 11/18/2024 12:00 AM CDT CMP (COMPREHENSIVE METABOLIC PANEL) 11/18/2024 12:00 AM CDT MAGNESIUM (MG) 11/18/2024 12:00 AM CDT BASIC METABOLIC PANEL W/ CALCIUM TOTAL 11/18/2024 12:00 AM CDT URINALYSIS (UA) RANDOM 12:00 AM CDT D-DIMER 11/18/2024 12:00 AM CDT APTT (PTT) 11/18/2024 12:00 AM CDT COMPLETE BLOOD COUNT (CBC) WITH DIFF 11/18/2024 12:00 AM CDT US - UPPER EXTREMITY 11/18/2024 12:00 AM CDT XR - UPPER EXTREMITY 11/18/2024 12:00 AM CDT US - LOWER EXTREMITY 11/18/2024 12:00 AM CDT RESPIRATORY SYNCYTIAL VIRUS BY MOLECULAR 11/18/2024 12:00 AM CDT XR - UPPER EXTREMITY 11/17/2024 12:00 AM CDT CARDIOLOGY CONSULT 11/16/2024 12 :00 AM CDT ECHO GENERIC 11/16/2024 12:00 AM CDT ECHO GENERIC 11/16/2024 12:00 AM CDT EKG SCAN 11/15/2024 12:00 AM CDT PROTIME (PT) (PROTHROMBIN TIME) 11/15/2024 12:00 AM CDT XR - CHEST 11/15/2024 12:00 AM CDT EKG SCAN 11/07/2024 12:00 AM CDT THYROID STIMULATING HORMONE (TSH) 11/07/2024 12:00 AM CDT B-TYPE NATRIURETIC PEPTIDE (BNP) 11/07/2024 12:00 AM CDT MAGNESIUM (MG) 11/07/2024 12:00 AM CDT LAB - MISCELLANEOUS 11/07/2024 1 2:00 AM CDT CMP (COMPREHENSIVE METABOLIC PANEL) 11/07/2024 12:00 AM CDT URINALYSIS (UA) RANDOM 12:00 AM CDT PROTIME (PT) (PROTHROMBIN TIME) [...] 11/07/2024 12:00 AM CDT URINALYSIS (UA) RANDOM 12:00 AM CDT INTERNAL MEDICINE CONSULT 10/17/2024 12:[address] - ABDOMEN/PELVIS 10/15/2024 1 2:00 AM CDT SURGERY CONSULT 10/12/2024 12:00 AM CDT INTERNAL MEDICINE CONSULT 10/12/2024 12:[address] - ABDOMEN/PELVIS 10/12/2024 1 2:[address] - ABDOMEN/PELVIS 10/08/2024 1 2:[address] - SPINE 10/06/2024 12:[address] - ABDOMEN/PELVIS 10/03/2024 1 2:00 AM CDT [id number] CONSULT 09/27/2024 12:00 AM CDT EXTERNAL ENT REFERRAL Routine 09/27/2024 12:00 AM CDT XR - CHEST 09/27/2024 12:00 AM CDT HEMOGLOBIN, A1C 10/02/2023 12:00 AM CDT HM COLONOSCOPY Routine 01/09/2020 AMB REFERRAL TO PODIATRY Routine 08/13/2019 POCT STOOL, OCCULT BLOOD, DIAGNOSTIC Routine 09/07/2018 1:20 PM CDT Generalized abdominal pain from Last 3 Months or Most Recently Relevant to Health Maintenance Results * XR CHEST 2 VIEWS (12/17/2024 2:58 PM CDT) Anatomical Region Laterality Modality Chest N/A Digital Radiogra phy 12/18/2024 10:5 7 AM CDT Impressions 12/18/2024 11:00 AM CDT IMPRESSION: No significant change in appearance of the chest when compared to the previous chest radiograph dated 12/11/2024. Narrative 12/18/2024 11:00 AM CDT EXAM DESCRIPTION: XR CHEST 2 VIEWS REASON FOR STUDY: Patient dx with CHF in November of this year. C/o sob x 1 month. H/o breast cancer, double mastectomy, former smoker TECHNIQUE: Frontal and lateral radiographic view(s) of the chest. COMPARISON: Multiple previous chest radiographs with most recent dated 12/11/2024. Chest CT dated 12/08/2024. FINDINGS: There is no focal pneumonic consolidation, pleural effusion or pneumothorax. Cardiomediastinal silhouette projects enlarged. Prominence of the pulmonary interstitium is similar when compared to the previous radiographs and could be chronic. Please correlate clinically if there is concern for pulmonary vascular congestion. Degenerative changes in the bilateral shoulders. Thoracic spinal stimulator leads are redemonstrated. THIS IS AN ELECTRONICALLY VERIFIED FINAL REPORT 12/18/2024 10:57 AM - Electronically signed by Baldomerolacey Laboy D.O. AP: AP Report ID: [id number] Reading Location: [id number] Procedure Note Baldomero Laboy DO - 12/18/2024 EXAM DESCRIPTION: XR CHEST 2 VIEWS REASON FOR STUDY: Patient dx with CHF in November of this year. C/o sob x 1 month. H/o breast cancer, double mastectomy, former smoker TECHNIQUE: Frontal and lateral radiographic view(s) of the chest. COMPARISON: Multiple previous chest radiographs with most recent dated 12/11/2024. Chest CT dated 12/08/2024. FINDINGS: There is no focal pneumonic consolidation, pleural effusion or pneumothorax. Cardiomediastinal silhouette projects enlarged. Prominence of the pulmonary interstitium is similar when compared to the previous radiographs and could be chronic. Please correlate clinically if there is concern for pulmonary vascular congestion. Degenerative changes in the bilateral shoulders. Thoracic spinal stimulator leads are redemonstrated. THIS IS AN ELECTRONICALLY VERIFIED FINAL REPORT 12/18/2024 10:57 AM - Electronically signed by Baldomero Laboy D.O. AP: AP Report ID: [id number] Reading Location: [id number] IMPRESSION: No significant change in appearance of the chest when compared to the previous chest radiograph dated 12/11/2024. Justen Gale MD IMG DIAGNOSTIC ORDERABLES Fin al Result * XR - CHEST (11/27/2024 12:00 AM CDT) Only the most recent of3 resultswithin the time period is included. 11/27/2024 Provider Scan IMG DIAGNOSTIC ORDERABLES Final Result SCAN * PAIN CONSULT (11/21/2024 12:00 AM CDT) 11/21/2024 Justen Gale MD GENERIC SCAN ORDERS CONSULT F inal Result Performing Organization Address [facility] de Phone Number SCAN * RESPIRATORY SYNCYTIAL VIRUS BY MOLECULAR (11/18/2024 12:00 AM CDT) 11/18/2024 us Provider Scan MICROBIOLOGY - GENERAL ORDERABLE S Final Result Performing Organization Address [facility] de Phone Number SCAN * US - UPPER EXTREMITY (11/18/2024 12:00 AM CDT) 11/18/2024 us Provider Scan IMG US ORDERABLES Final Result Performing Organization Address [facility] de Phone Number SCAN * US - LOWER EXTREMITY (11/18/2024 12:00 AM CDT) 11/18/2024 us Provider Scan IMG US ORDERABLES Final Result Performing Organization Address [facility] de Phone Number SCAN * XR - UPPER EXTREMITY (11/18/2024 12:00 AM CDT) Only the most recent of2 resultswithin the time period is included. 11/18/2024 us Provider Scan IMG DIAGNOSTIC ORDERABLES Final Result Performing Organization Address [facility] de Phone Number SCAN * CARDIOLOGY CONSULT (11/18/2024 12:00 AM CDT) Only the most recent of2 resultswithin the time period is included. 11/18/2024 us Provider Scan GENERIC SCAN ORDERS CONSULT Deann l Result Performing Organization Address [facility] de Phone Number SCAN * LAB - MISCELLANEOUS (11/18/2024 12:00 AM CDT) Only the most recent of2 resultswithin the time period is included. 11/18/2024 us Provider Scan CHEMISTRY ORDERABLES Final Resul t Performing Organization Address [facility] de Phone Number SCAN * URINALYSIS (UA) RANDOM (11/18/2024 12:00 AM CDT) Only the most recent of3 resultswithin the time period is included. 11/18/2024 us Provider Scan URINE ORDERABLES Final Result Performing Organization Address [facility] de Phone Number SCAN * URIC ACID (BLOOD ASSAY) (11/18/2024 12:00 AM CDT) 11/18/2024 us Provider Scan CHEMISTRY ORDERABLES Final Resul t Performing Organization Address [facility] de Phone Number SCAN * TROPONIN I (TRP I) (11/18/2024 12:00 AM CDT) 11/18/2024 us Provider Scan CHEMISTRY ORDERABLES Final Resul t Performing Organization Address [facility] de Phone Number SCAN * APTT (PTT) (11/18/2024 12:00 AM CDT) Only the most recent of2 resultswithin the time period is included. 11/18/2024 us Provider Scan HEMATOLOGY ORDERABLES Final Resu lt Performing Organization Address [facility] de Phone Number SCAN * MAGNESIUM (MG) (11/18/2024 12:00 AM CDT) Only the most recent of3 resultswithin the time period is included. 11/18/2024 us Provider Scan CHEMISTRY ORDERABLES Final Resul t Performing Organization Address [facility] de Phone Number SCAN * LACTIC ACID (LACTATE) (11/18/2024 12:00 AM CDT) Only the most recent of2 resultswithin the time period is included. 11/18/2024 us Provider Scan CHEMISTRY ORDERABLES Final Resul t Performing Organization Address [facility] de Phone Number SCAN * GLUCOSE (11/18/2024 12:00 AM CDT) 11/18/2024 us Provider Scan CHEMISTRY ORDERABLES Final Resul t Performing Organization Address [facility] de Phone Number SCAN * D-DIMER (11/18/2024 12:00 AM CDT) 11/18/2024 us Provider Scan HEMATOLOGY ORDERABLES Final Resu lt Performing Organization Address [facility] de Phone Number SCAN * CMP (COMPREHENSIVE METABOLIC PANEL) (11/18/2024 12:00 AM CDT) Only the most recent of3 resultswithin the time period is included. 11/18/2024 us Provider Scan CHEMISTRY ORDERABLES Final Resul t Performing Organization Address [facility] de Phone Number SCAN * COMPLETE BLOOD COUNT (CBC) WITH DIFF (11/18/2024 12:00 AM CDT) Only the most recent of2 resultswithin the time period is included. 11/18/2024 us Provider Scan HEMATOLOGY ORDERABLES Final Resu lt Performing Organization Address [facility]/ZIP Co de Phone Number SCAN * C-REACTIVE PROTEIN (CRP) QUANT (11/18/2024 12:00 AM CDT) 11/18/2024 us Provider Scan CHEMISTRY ORDERABLES Final Resul t Performing Organization Address City/[facility] Co de Phone Number SCAN * BASIC METABOLIC PANEL W/ CALCIUM TOTAL (11/18/2024 12:00 AM CDT) 11/18/2024 us Provider Scan CHEMISTRY ORDERABLES Final Resul t Performing Organization Address [facility] de Phone Number SCAN * B-TYPE NATRIURETIC PEPTIDE (BNP) (11/18/2024 12:00 AM CDT) Only the most recent of3 resultswithin the time period is included. 11/18/2024 us Provider Scan CHEMISTRY ORDERABLES Final Resul t Performing Organization Address [facility] de Phone Number SCAN * ECHO GENERIC (11/16/2024 12:00 AM CDT) Only the most recent of2 resultswithin the time period is included. LV EF(estimated)% 58 RESULTING AGENCY 11/16/2024 us Provider Scan IMG ECHO ORDERABLES Final Result Performing Organization Address [facility] Co de Phone Number RESULTING AGENCY * EKG SCAN (11/15/2024 12:00 AM CDT) Only the most recent of2 resultswithin the time period is included. 11/15/2024 us Provider Scan IMG ECG ORDERABLES Final Result Performing Organization Address [facility] Co de Phone Number RESULTING AGENCY * PROTIME (PT) (PROTHROMBIN TIME) (11/15/2024 12:00 AM CDT) Only the most recent of2 resultswithin the time period is included. INR 2.1 SCAN 11/15/2024 us Provider Scan HEMATOLOGY ORDERABLES Final Resu lt Performing Organization Address [facility] de Phone Number SCAN * THYROID STIMULATING HORMONE (TSH) (11/07/2024 12:00 AM CDT) Only the most recent of2 resultswithin the time period is included. 11/07/2024 us Provider Scan CHEMISTRY ORDERABLES Final Resul t Performing Organization Address [facility] de Phone Number SCAN * INTERNAL MEDICINE CONSULT (10/17/2024 12:00 AM CDT) Only the most recent of2 resultswithin the time period is included. 10/17/2024 us Provider Scan GENERIC SCAN ORDERS CONSULT Deann l Result Performing Organization Address [facility] de Phone Number SCAN * CT - ABDOMEN/PELVIS (10/15/2024 12:00 AM CDT) Only the most recent of4 resultswithin the time period is included. 10/15/2024 us Provider Scan IMG CT ORDERABLES Final Result Performing Organization Address [facility] de Phone Number SCAN * SURGERY CONSULT (10/12/2024 12:00 AM CDT) 10/12/2024 us Provider Scan GENERIC SCAN ORDERS CONSULT Deann l Result Performing Organization Address [facility] Co de Phone Number SCAN * CT - SPINE (10/06/2024 12:00 AM CDT) 10/06/[address] ORDERABLES Final Result Performing Organization Address [facility] de Phone Number SCAN * EXTERNAL ENT REFERRAL (09/27/2024 12:00 AM CDT) 09/27/2024 Dulce N Oehl WHEAT INSPECTOR, COKE CRANE OPERATOR OUTPT REFERRALS EXT/INT F inal Result Performing Organization Address [facility] de Phone Number SCAN * [id number] CONSULT (09/27/2024 12:00 AM CDT) 09/27/2024 Provider Scan GENERIC SCAN ORDERS CONSULT Deann l Result Performing Organization Address [facility] de Phone Number SCAN * HEMOGLOBIN, A1C (10/02/2023 12:00 AM CDT) HGB-A1C 7.8 SCAN 10/02/2023 Provider Scan CHEMISTRY ORDERABLES Final Resul t Performing Organization Address [facility] de Phone Number SCAN * HM COLONOSCOPY (01/09/2020) Genaro Jensen DO PROCEDURE/MINOR SURGICAL ORDERA BLES Final Result * AMB REFERRAL TO PODIATRY (08/13/2019) Alvarez Mensah MD OUTPATIENT REFERRALS Final Res ult * POCT STOOL, OCCULT BLOOD, DIAGNOSTIC (09/07/2018 1:20 PM CDT) OCCULT BLOOD, STOOL Negative Negative, Other POC HEMOCULT CONTROL Secretary Of State Pass 09/07/2018 1:20 PM CDT Pili Elkins APRN, COKE CRANE OPERATOR POINT OF CARE TESTIN G (MANUAL) Final Result from Last 3 Months or Most Recently Relevant to Health Maintenance Insurance MEDICAID [place] MEDICARE C [facility] Care Teams Senior Research Engineer Relationship Specialty Start Date End Date Justen Gale MD #2 [facility] [address] [place] [address] PCP - General Family Medicine 10/17/17 David Roberts APRN, COKE CRANE OPERATOR #2 [place] [address] Nurse Practitioner Advanced Practice Nurse 01/31/22 Annel Rod MD #2 [facility] [address] [place] [address] Consulting Physician Endocrinology 07/01/22
--- OUTSIDE RECORDS SUMMARY | 2024-12-23 12:52 | XMS_ITS | Encounter Summary ---
Author Organization [facility] Address [address] [place] [address] Phone Care Team Providers Care Jboss Architect Name Role Phone Justen Gale MD Primary Care Provider [phone] David Roberts APRN, STITCHER STANDARD MACHINE Unavailable Annel Rod MD Unavailable Reason for Visit * Reason Comments Medication Refill Encounter Details Date Type Department Care Team (Late st Contact Info) Description 04/13/2023 Refill [facility] - [place] #2 [place] [address] Annel Rod MD #[address] [address] Medication Refill Social History Tobacco [...] Jennifer Wang, RN - 04/14/2023 10:00 AM DATA DEVELOPER Requested Prescriptions Pending Prescriptions Disp Refills ??? Continuous Blood Gluc Sensor (FreeStyle Eileen 2 Sensor) Misc [Pharmacy Med Name: FREESTYLE EILEEN 2 SENSOR] 6 Each 1 Sig: APPLY 1 SENSOR AND WEAR FOR 14 DAYS TO CHECK BLOOD SUGAR Next appt: 05/30/2023 DEVELOPER documented in this encounter Plan of Treatment Upcoming Encounters Date Type Department Care Team (Late st Contact Info) Description 01/13/2025 2:45 PM CDT Office Visit [facility] #2 [place] [phone] Pili Elkins, ZAMZAM, STITCHER STANDARD MACHINE #[address] [phone] David Roberts APRN, STITCHER STANDARD MACHINE #2 [place] [address] 01/21/2025 2:00 PM CDT Appointment [facility] Ultrasound 1 [place] [phone] Annel Rod MD #[address] [address] Discharge Disposition: Discharged to home or Selfcare 03/19/2025 2:00 PM DATA DEVELOPER Office Visit [facility]ology - [place] #2 [facility] [place] [address] Annel Rod MD #[address] [address] 05/29/2025 1:30 PM DATA DEVELOPER Office Visit [facility] [place] #2 [place] [address] Justen Gale MD #[address] [address] documented as of this encounter Visit Diagnoses Not on filedocumented in this encounter Additional Health Concerns Infection Onset Date Last Indicated Resolved Time COVID - 19 08/01/2024 08/01/2024 08/01/2024 3:20 PM CDT Respiratory Rule-Out 11/18/2024 11/18/2024 025 7:18 AM CDT Assessment Noted Time PHQ-9 Depression Total Score: 8 01/18/20 23 2:24 PM CDT documented as of this encounter Care Teams Jboss Architect Relationship Specialty Start Date End Date Justen Gale MD #[address] [address] PCP - General Family Medicine 10/17/17 David Roberts, DIGITAL PRODUCTION ARTIST, STITCHER STANDARD MACHINE #2 [place] [address] Nurse Practitioner Advanced Practice Nurse 01/31/22 Annel Rod MD #[address] [address] Consulting Physician Endocrinology 07/01/22 documented as of this encounter
--- OUTSIDE RECORDS SUMMARY | 2024-12-23 12:52 | XMS_ITS | Encounter Summary ---
Author Organization [facility] Address [address] [place] [address] Phone Care Team Providers Care Data Processing Systems Project Planner Name Role Phone Justen Gale MD Primary Care Provider David Roberts APRN, IT COMMUNICATIONS MANAGER Unavailable Annel Rod MD Unavailable Encounter Details Date Type Department Care Team (Late st Contact Info) Description 06/05/2020 [facility] [address] [place] [address] Pili Elkins APRN, IT COMMUNICATIONS MANAGER #[address] [address] Frequency of micturition Social History [...] COVID-19? 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 FARMER documented as of this encounter Plan of Treatment Upcoming Encounters Date Type Department Care Team (Late st Contact Info) Description 01/13/2025 2:45 PM CDT Office Visit [facility]Y #2 [place] [address] Pili Elkins APRN, IT COMMUNICATIONS MANAGER #[address] [address] David Roberts APRN, IT COMMUNICATIONS MANAGER #2 [place] [address] 01/21/2025 2:00 PM CDT [facility] 1 [place] [address] Annel Rod MD #[address] [place] [address] Discharge Disposition: Discharged to home or Selfcare 03/19/2025 2:00 PM GINGER FARMER Office Visit [facility] Endocrinology [facility] #2 [place] [address] Annel Rod MD #[address] [address] 05/29/2025 1:30 PM GINGER FARMER Office Visit [facility] - Family Medicine - [place] #2 [place] [phone] Justen Gale MD #[address] [address] documented as of this encounter Procedures Procedure Name Priority Date/Time Associated Diagnosis Comments URINALYSIS REFLEX IF INDICATED BY ABNORMAL RESULTS Routine 06/05/2020 4:45 PM GINGER FARMER Frequency of micturition documented in this encounter Results * (ABNORMAL) URINALYSIS REFLEX IF INDICATED BY ABNORMAL RESULTS (06/05/2020 4:45 PM GINGER FARMER) SPECIFIC GRAVITY 1.020 1.003 - 1.030 06/05/2020 5:19 PM GINGER FARMER [facility] URINE PH 5.0 5.0 - 9.0 06/05/2020 5:19 PM [facility] WBC ESTERASE Negative Negative 06/05/2020 5:19 [address] [facility] NITRITE Negative Negative 06/05/2020 5:19 PM [facility] PROTEIN, RANDOM URINE Negative Negative 06/05/2020 5:19 PM GINGER FARMER [facility] URINE GLUCOSE, QUAL Negative Negative 06/05/2020 5:19 PM GINGER FARMER [facility] URINE KETONES Negative Negative 06/05/2020 5:19 PM [facility] UROBILINOGEN Normal Normal mg/dL 06/05/2020 5:19 PM [facility] URINE BILIRUBIN Negative Negative 5:19 PM [facility] URINE BLOOD 25 /uL(A) Negative leandro/ul 06/05/2020 5:19 PM [facility] URINALYSIS COLOR Yellow 06/05/19 5:19 PM [facility] URINALYSIS CLARITY Clear 06/05/2020 5:19 PM [facility] WBC (Urine) 0-5 Negative, 0-5 /hpf 06/05/2020 5:19 PM [facility] URINE RBC'S 3-5(A) Negative, 0-2 /hpf 06/05/2020 5:19 PM GINGER FARMER [facility] EPITHELIAL CELLS Small amount /lpf 2020 5:19 PM GINGER FARMER [facility] BACTERIA, URINE Few(A) Negative /hpf 06/05/2020 5:19 PM GINGER FARMER [facility] Urine URINE SPECIMEN / Unknown Non-Phlebotomy Collection / Unknown 06/05/2020 4:45 PM GINGER FARMER 06/05/2020 5:00 PM GINGER FARMER us Pili Elkins CARRIER PACKER, IT COMMUNICATIONS MANAGER URINE ORDERABLES Fin al Result [facility] #1 [place] [address] documented in this encounter Visit Diagnoses Diagnosis [...] as of this encounter Care Teams Data Processing Systems Project Planner Relationship Specialty Start Date End Date Justen Gale MD #2 [facility] [address] [place] [address] PCP - General Family Medicine 10/17/17 David Roberts APRN, IT COMMUNICATIONS MANAGER #2 [place] [address] Nurse Practitioner Advanced Practice Nurse 01/31/22 Annel Rod MD #2 [facility] [address] [place] [address] Consulting Physician Endocrinology 07/01/22 documented as of this encounter
--- OUTSIDE RECORDS SUMMARY | 2024-12-23 12:52 | XMS_ITS | Clinical Summary ---
Author Organization [facility] Address [address] [place] [address] Phone Care Team Providers Care Slate Cutter Name Role Phone Justen Gale MD Primary Care Provider [phone] Allergies Active Allergy Reactions Criticality Noted Date [...] - 6.0 % 09/29/2017 10:28 AM CDT [employer] [facility] EST. AVG GLUCOSE, A1C 186 mg/dL 09/29/2017 10:28 AM CDT [employer] [facility] Blood Venipuncture / Unknown 09/28/2017 8:41 PM CDT 09/28/2017 8:46 PM CDT Narrative [facility] - 09/29/2017 10:28 AM CDT HGB A1C INTERPRETATION NORMAL: <5.7% PRE-DIABETES: 5.7 - 6.4% DIABETES: 6.5% OR GREATER us Francisco Castaneda MD CHEMISTRY ORDERABLES Final Resul t [facility] [facility]# [id number] [address] [facility] [place] [address] * (ABNORMAL) LIPID PANEL (09/28/2017 8:41 PM CDT) CHOLESTEROL 174 <200 mg/dL 09/30/2017 2:45 AM CDT [facility] [employer] [facility] TRIGLYCERIDE 109 <150 mg/dL 09/30/2017 2:45 AM CDT [facility] [employer] [facility] HDL 45 40 - 59 mg/dL 09/30/2017 2:45 AM CDT [facility] [employer] [facility] LDL CALCULATED 107(H) <100 mg/dL 09/30/2017 2:45 AM CDT [facility] [employer] [facility] NON-HDL CHOLESTEROL 129 <130 mg/dL 09/30/2017 2:45 AM CDT [facility] [employer] [facility] Blood Venipuncture / Unknown 09/28/2017 8:41 PM CDT 09/28/2017 8:46 PM CDT Narrative [facility] - 09/30/2017 2:45 AM CDT [...] Castaneda MD CHEMISTRY ORDERABLES Final Resul t [facility] [employer] [facility] [id number] [address] [facility] [place] [place] [id number] from Last 3 Months or Most Recently Relevant to Health Maintenance Insurance Advance Directives For more information, please contact: [phone] * Full Code (Latest Code Status on File) Date Activated Date Inactivated Comments 09/29/2017 7:45 AM 09/30/2017 9:14 PM * Full Code Date Activated Date Inactivated Comments 09/29/2017 1:25 AM 09/29/2017 7:45 AM Care Teams Slate Cutter Relationship Specialty Start Date End Date Justen Gale MD [address] [facility] [[email or web address] [address] [place] [address] PCP - General Cardiovascular Disease 09/14/17
--- OUTSIDE RECORDS SUMMARY | 2024-12-23 12:52 | XMS_ITS | Clinical Summary ---
Author Organization [facility] Address [facility] [place] [address] Care Team Providers Care Bisque Finisher Name Role Phone Meena Bansal MD Unavailable [phone] Justen aGle MD Primary Care Provider [phone] Allergies Active Allergy Reactions Criticality Noted Date [...] reflux disease 09/05/2020 Malignant tumor of breast ([facility]/HCC [facility]) 08/22 Knee pain 09/05/2020 Other chronic [...] 03/18/2018 Assessment & Plan (03/18/2018 2:55 AM DIRECTOR OF PULMONARY UNIT): Acute, patient reported as epigastric pain however may be atypical presentation. Troponins negative x2. Also in differential is GERD, PUD - Admit to observation -Follow-up troponins -Monitor vitals -N.p.o. at midnight - Stress echo in a.m. - Consider cardiology consult based on results of stress test -Begin Protonix Epigastric pain 03/18/2018 Assessment & Plan (03/18/2018 5:39 AM DIRECTOR OF PULMONARY UNIT): Acute, non radiating, worsens with lying down, [...] Speech impairment 01/30/2018 CVA (cerebral vascular accident) ([facility] HHS/ C) 01/24/2018 Neck pain on right side 12/01/2017 Anxiety and depression 11/12/2017 Chronic anticoagulation 11/09/2017 Constipation 11/09/2017 Uncontrolled type 2 diabetes mellitus with hyperglycemia, with long-term current use of insulin ([facility]) 11/06/2017 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 -continue exemestane Acute deep vein thrombosis ( DVT) of proximal vein of right lower extremity ([facility]) 10/17/2017 Dysuria 10/17/2017 Hyperthyroidism 10/17/2017 Cancer of overlapping sites of left female breast ([facility]) 10/13/2017 Syncope 09/29/2017 High blood pressure 08/22/2017 Overview (09/05/2020): Last Assessment & Plan: On lisinopril Last Assessment & Plan: On lisinopril Assessment & Plan (08/30/2018 9:57 PM CDT): Chronic. Controlled. -continue home medications Assessment & Plan (03/18/2018 2:51 AM DIRECTOR OF PULMONARY UNIT): Chronic, BPs currently 127/78 - To new home meds Morbid obesity with BMI of 50.0-59.9, adult 04/2017 Sepsis ([facility]) 08/22/2017 Type 2 diabetes mellitus ([facility]) 08/22 Overview (09/05/2020): Last Assessment & Plan: Hold janument. Start on SSI and accucheks Assessment & Plan (08/30/2018 10:01 PM CDT): Chronic. Controlled. -continue home insulin regimen of lantus 50 units q am -lispro 20 units with breakfast and lunch. 22 units with dinner. Assessment & Plan (03/18/2018 2:53 AM DIRECTOR OF PULMONARY UNIT): Chronic, patient reports medical compliance with 50 units of Lantus daily and 15 units of Humalog before meals. No recent HbA1c - Monitor POC glucose -[place] home regimen - Consider sliding scale insulin -Follow-up HbA1c Bronchitis 08/20/2017 LUL (obstructive sleep apnea) 08/01/2017 Assessment & Plan (03/18/2018 2:54 AM DIRECTOR OF PULMONARY UNIT): Chronic, on CPAP at home - Continue home CPAP History of DVT (deep vein thrombosis) 08/01/2017 Assessment & Plan (03/18/2018 2:54 AM DIRECTOR OF PULMONARY UNIT): Chronic - Continue home Xarelto Chest pressure 08/01/2017 Diet-controlled diabetes mellitus ([facility] HHS/H CC) 08/01/2017 History of pulmonary embolism 08/01/2017 Hyponatremia 08/01/2017 Positive blood culture 08/01/2017 Acute pharyngitis 07/27/2017 Generalized weakness 07/27/2017 Nausea and vomiting 07/26/2017 Overview (09/05/2020): Overview: Overview: Added automatically from request for surgery [id number] Overview: Added automatically from request for surgery [id number] Added automatically from request for surgery [id number] Neuropathy 07/05/2017 History of breast cancer 02/06/2017 Pulmonary embolism ([facility]) 08/09/2016 Overview (09/05/2020): Last Assessment & [...] syndrome Assessment & Plan (03/18/2018 2:54 AM DIRECTOR OF PULMONARY UNIT): Chronic -Continue home ropinirole Pain of lower [...] drink = 0.6 oz pur e alcohol) [facility] Utilities Answer Date Recorded In the past 12 months has [employer] gas, oil, or water [employer] threatened to shut off services in your [...] Straight 03/18/2018 3: 01 AM DIRECTOR OF PULMONARY UNIT Last Filed Vital Signs Vital Sign Reading [...] 8.0(H) <5.7 % 10/14/2023 5:50 AM CDT [facility] Comment: ADA GUIDELINES 2010 5.7 TO 6.4% INCREASED RISK OF DIABETES > OR = 6.5% CONSISTENT WITH DIABETES ESTIMATED AVG GLUCOSE 183 mg/dL 10/14/2023 5:50 AM CDT [facility] 10/14/2023 3:40 AM CDT us Peggy Bland MD LABORATORY Final Result [facility] [address] [place] [address], [place] [phone] * LIPID PANEL (10/14/2023 3:40 AM CDT) CHOLESTEROL 164 <200 MG/DL 10/14/2023 4:31 AM CDT [facility] TRIGLYCERIDES 114 <150 MG/DL 10/14/2023 4:31 AM CDT [facility] HDL 46 >40.0 MG/DL 10/14/2023 4:31 AM CDT [facility] LDL (CALCULATED) 95 <100 MG/DL 10/14/19 4:31 AM CDT [facility] NON HDL CHOLESTEROL 118 <130 MG/DL 10/13 4:31 AM T [facility] CHOL/HDL RATIO 3.6 0.0 - 4.5 10/14/2023 4:31 AM T [facility] VLDL CALCULATION 23 5 - 55 MG/DL 10/14/2023 4:31 AM CDT [facility] LIPID INTERPRETATION 10/14/2023 4:31 AM T [facility] Comment: NIH CONCENSUS REPORT RECOMMENDATIONS: ADULT CHILD LOW RISK: CHOLESTEROL <200 <170 TRIGLYCERIDE <150 --- HDL >=60 --- LDL <100 <110 BORDERLINE: CHOLESTEROL 200-239 170-199 TRIGLYCERIDE 150-199 --- HDL 40-59 --- LDL 100-159 110-129 HIGH RISK: CHOLESTEROL >=240 >=200 TRIGLYCERIDE >=200 --- HDL <40 --- LDL >=160 >=130 10/14/2023 3:40 AM CDT Peggy Bland MD LABORATORY Final Result [facility] [address] [place] [address], from Last 3 Months or Most Recently Relevant to Health Maintenance Insurance [facility] [id number] [facility] Advance Directives * Full Code (Latest Code [...] 2:42 AM 03/18/2018 4:50 PM Care Teams Bisque Finisher Relationship Specialty Start Date End Date Justen Gale MD [address] [address] PCP - General FAMILY PRACTICE 08/20/17 Meena Bansal MD [address] [facility] [address] [place] [address] [facility] Social Work Professor CARDIOVASCULAR DISEASE 04/24/16
--- OUTSIDE RECORDS SUMMARY | 2024-12-23 12:52 | XMS_ITS | Patient Health Record ---
Author Organization [facility] Address [address] [facility] [address] [facility] [address] [place] [address] Care Team Providers Care Rn Clinical Coordinator Name Role Phone Yo DURÁN, Lavonne Primary Care Provider Unavail able Reason For Referral No Information Plan Of Treatment No Information Insurance Providers Payer Name Payer Address Payer Phone Subscriber Number Group Number Insured Name Patient Relationship to Insured Coverage Start Date Coverage End Date [facility] [employer] [address] [address] [place], [place] [id number] Karly Marques Self - patient is the insured
--- OUTSIDE RECORDS SUMMARY | 2024-12-23 12:52 | XMS_ITS | Encounter Summary ---
Author Organization [facility] Address [address] [place] [address] Phone Care Team Providers Care Highway Patrol Commander Name Role Phone Justen Gale MD Primary Care Provider [phone] David Roberts APRN, CAGE/VAULT SUPERVISOR Unavailable Annel Rod MD Unavailable Reason for Visit * Reason Comments Medication Refill Encounter Details Date Type Department Care Team (Late st Contact Info) Description 07/06/2023 Refill [facility] #2 [place] [address] Justen Gale MD #[address] [address] Medication Refill Social History Tobacco Use Types [...] Dept 06/27/23 Office Visit Justen Gale MD [facility] 01/17/23 Office Visit Catrina Quiñonez MD [facility] Showing recent visits within past [...] Visit [facility] #2 [place] [address] Pili Elkins APRN, CAGE/VAULT SUPERVISOR #[address] [phone] David Roberts APRN, CAGE/VAULT SUPERVISOR #2 [place] [address] 01/21/2025 2:00 PM CDT [facility] [address] [place] [address] Annel Rod MD #[address] [place] [phone] Discharge Disposition: Discharged to home or Selfcare 03/19/2025 2:00 PM ADMIN ASSISTANT Office Visit [facility] - Endocr[facility]ology - [place] #2 [facility] [place] [address] Annel Rod MD #[address] [place] [address] 05/29/2025 1:30 PM ADMIN ASSISTANT Office Visit [facility] - Family Medicine [facility] #2 [place] [address] Justen Gale MD #[address] [place] [address] documented as of this encounter Visit Diagnoses Not on filedocumented in this encounter Additional Health Concerns Infection Onset Date Last Indicated Resolved Time COVID - 19 08/01/2024 08/01/2024 08/01/2024 3:20 PM CDT Respiratory Rule-Out 11/18/2024 11/18/2024 025 7:18 AM CDT Assessment Noted Time PHQ-9 Depression Total Score: 8 01/18/20 23 2:24 PM CDT documented as of this encounter Care Teams Highway Patrol Commander Relationship Specialty Start Date End Date Justen Gale MD #[address] [address] PCP - General Family Medicine 10/17/17 David Roberts APRN, NETTA #2 [place], [place] [phone] Nurse Practitioner Advanced Practice Nurse 01/31/22 Annel Rod MD [facility] [address] Consulting Physician Endocrinology 07/01/22 documented as of this encounter
--- OUTSIDE RECORDS SUMMARY | 2024-12-23 12:52 | XMS_ITS | Encounter Summary ---
Author Organization [facility] Address [address] [place] [address] Phone Care Team Providers Care Hospital Recruiter Name Role Phone Justen Gale MD Primary Care Provider David Roberts APRN, WARDROBE COORDINATOR Unavailable [phone] Annel Rod MD Unavailable Reason for Visit * Reason Onset Date Comments Sore Throat 09/02/2024 Encounter Details Date Type Department Care Team (Late st Contact Info) Description 09/02/2024 Nurse Triage [facility] [address] [place] [address] Justen Gale MD [address] [id number] Sore Throat Social History Tobacco Use Types Packs/Day Years Used Date Smoking Tobacco: Never Smokeless Tobacco: Never Alcohol Use Standard Drinks/Week Comments No 0 (1 standard drink = 0.6 oz pur e alcohol) [facility] Utilities Answer Date Recorded In the [...] do you attend chur or church services? More than 4 times [...] Questions 1-9 0 07/23 [facility] - Occupational [...] in the past 12 m [facility], were you homeless or living in [...] Pharmacy, medications, and allergies reviewed. Discussed utilizing [email or web address] to: discuss if they would prefer a [employer] message or phone call response - See [...] Ulcers - Caller Reports Outcome: Transfer to fishery division chief queue Reason: Caller denied all higher acuity questions The caller accepted this outcome. Caller Denied: * Struggling for each breath (severe trouble breathing) * Can't swallow saliva (drooling) documented in this encounter Plan of Treatment Upcoming Encounters Date Type Department Care Team (Late st Contact Info) Description 01/13/2025 2:45 PM CDT Office Visit [facility] [address] [place] [address] Pili Elkins APRN, WARDROBE COORDINATOR #[address] [phone] David Roberts APRN, WARDROBE COORDINATOR [address] [place] [address] 01/21/2025 2:00 PM CDT Appointment [facility] Ultrasound [address] [place] [address] Annel Rod MD #[address] [phone] Discharge Disposition: Discharged to home or Selfcare 03/19/2025 2:00 PM GRADUATE RECRUITER Office Visit [facility] - Endocrinology - [place] [address] [place] [address] Annel Rod MD #[address] [phone] 05/29/2025 1:30 PM GRADUATE RECRUITER Office Visit [facility] - Family Medicine - [place] [address] [place] [address] Justen Gale MD #[address] [id number] documented as of this encounter Visit Diagnoses Not on filedocumented in this encounter Additional Health Concerns Infection Onset Date Last Indicated Resolved Time Respiratory Rule-Out 11/18/2024 11/18/2024 025 7:18 AM CDT Assessment Noted Time PHQ-9 Depression Total Score: 0 08/02/19 25 1:09 PM CDT documented as of this encounter Care Teams Hospital Recruiter Relationship Specialty Start Date End Date Justen Gale MD #2 [facility] [address] [place] [address] PCP - General Family Medicine 10/17/17 David Roberts, HEEL BUILDER, WARDROBE COORDINATOR [address] [place] [address] Nurse Practitioner Advanced Practice Nurse 01/31/22 Annel Rod MD #2 [facility] [address] [place] [address] Consulting Physician Endocrinology 07/01/22 documented as of this encounter
--- OUTSIDE RECORDS SUMMARY | 2024-12-23 12:52 | XMS_ITS | Clinical Summary ---
Author Organization [facility] Address [address] [place] [id number] Care Team Providers Care Tube Puller Name Role Phone Liu Jerez MD Unavailable Albert Corbin MD Unavailable Justen Gale MD Primary Care Provider Khris Arthur MD Unavailable [phone] Ko Melendez MD Unavailable John Paul Moyer [...] Cephalosporins Anaphylaxis High Ciprofloxacin Rash Medium 02/12/2022 Doxycycline Itching Low 12/02/2024 Ketorolac Itching Low Latex Rash Medium Levofloxacin [...] Test) strip 4 (four) times a day 02/02/20 21 Active albuterol HFA (PROVENTIL HFA,VENTOLIN HFA,PROAIR HFA) 90 mcg/actuation inhaler Inhale 2 puffs every 6 (six) hours as needed for wheezing or shortness of breath 04/19/20 21 Active naloxone (NARCAN) 4 mg/actuation spray,non-aerosol 05/13/19 22 Active BD Ultra-Fine Short Pen Needle 31 gauge x 5/16 needle USE 6 TIMES DAILY DIRECTED 06/25/19 22 Active oxyBUTYnin XL (DITROPAN XL) 15 mg 24 hr tablet Take 1 tablet (15 mg total) by mouth daily 06/29/19 23 Active insulin glargine 100 unit/mL vial for injection Inject 32 Units under the skin daily Takes in the morning 08/18/19 24 Active gabapentin (NEURONTIN) 300 mg capsule Take 1 capsule (300 mg total) by mouth 3 (three) times a day 06/20/19 24 Active ondansetron ODT (ZOFRAN-ODT) 4 mg disintegrating tablet Take 1 tablet (4 mg total) by mouth every 4 (four) hours as needed for nausea or vomiting 20 tablet 08/24/19 24 Active ondansetron (ZOFRAN) 4 mg tablet Take 1 tablet (4 mg total) by mouth every 8 (eight) hours as needed for nausea or vomiting 11/08/19 24 Active rivaroxaban (Xarelto) 20 mg tabletIndications: Chronic [...] total) by mouth daily 30 tablet 11 12/27/19 24 Active HYDROcodone-acetam inophen (NORCO) 10-325 mg per tablet Take 1 tablet by mouth every 6 (six) hours as needed for pain 12/28/19 24 Active insulin lispro (HumaLOG, ADMELOG) 100 unit/mL vial for injection Inject 28 Units under the skin 3 (three) times a day before meals 28 units plus sliding scale before meals Active exemestane (AROMASIN) 25 mg tabletIndications: Malignant neoplasm of upper-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, unspecified estrogen receptor status (HCC),Malignant neoplasm of overlapping sites of left female breast, unspecified estrogen receptor status (HCC),Malignant neoplasm of female breast, unspecified estrogen receptor status, unspecified laterality, unspecified site of breast (HCC) Take 1 tablet (25 mg total) by mouth nightly 90 tablet 3 05/30/19 25 Active spironolactone (ALDACTONE) 25 mg tablet Take 1 tablet (25 mg total) by mouth daily 30 tablet 12/07/19 25 025 Active lidocaine (LIDODERM) 5 % Place 1 patch on the skin daily for 12 hours for 7 days Remove & discard patch within 12 hours or as directed by . 7 patch 12/06/19 25 Active furosemide (LASIX) 20 mg tablet Take 1 tablet (20 mg total) by mouth daily 30 tablet 12/06/19 25 025 Active potassium chloride ER (KLOR-CON) 10 mEq CR tablet Take 1 tablet/capsul e (10 mEq total) by mouth 2 (two) times a day 60 tablet/capsu le 12/06/19 025 Active methenamine (HIPREX) 1 gram tablet Take 1 tablet (1,000 mg total) by mouth 2 (two) times a day 10/24/19 24 025 Discontinu ed(Stop Taking at Discharge) predniSONE (DELTASONE) 5 mg tabletIndications: Anti-inflammatory Take 1 tablet (5 mg) by mouth daily for 7 days 7 tablet 12/07/19 025 Active Problems Problem Noted Date Diagnosed Date Acute on chronic diastolic congestive heart fail ure 12/03/2024 Class 3 severe obesity due t o excess calories without serious comorbidity with body mass index (BMI) of 50.0 to 59.9 in adult 12/03/2024 Shortness of breath 12/02/2024 Urinary tract infection 05/22/2024 Assessment & Plan (05/26/2024 10:08 AM BLUEPRINTER): Presenting with urinary symptoms of right flank [...] 3 doses q48 hours -Previously followed with [facility] Urology, but lost to follow up when her Urologist left the practice, outpatient urology follow up placed - good pain control w/Dilaudid, continue prn Venous thromboembolism (VTE) 05/22/2024 Assessment & Plan (05/25/2024 7:52 AM BLUEPRINTER): Hx of breast cancer c/b DVT/bilateral Pes [...] 05/22/2024 Assessment & Plan (05/22/2024 1:14 PM BLUEPRINTER): -long-standing chronic back pain -CT L spine [...] complication, without long-term current use of insulin ([facility]) 10/23/2017 Assessment & Plan (10/23/2017 2:06 [...] 10/13/2017 Assessment & Plan (05/22/2024 12:29 PM BLUEPRINTER): -Hx stage II, ER positive, HER2 negative breast cancer, on adjuvant exemestane -s/p bilateral mastectomies, left axillary LN dissection, with negative margins -Follows with [facility] -Outpatient Medical Oncology Note review indicates plan to continue on exemestane, will complete 10 years of therapy in 12/2024 -Yearly Reclast, next dose 11/2024 Chest pressure 08/01/2017 Positive blood culture 08/01/2017 Hyponatremia 08/01/2017 Diet-controlled diabetes mellitus (CMS/HCC) 07/23 LUL (obstructive sleep apnea) 08/01/2017 Assessment & Plan (05/22/2024 12:33 PM BLUEPRINTER): -Hx LUL -Hospital provided CPAP ordered History of DVT (deep vein thrombosis) 08/01/2017 History of pulmonary embolism 08/01/2017 Generalized weakness 07/27/2017 Dyspnea 07/27/2017 Unintentional weight loss 07/27/2017 Acute cystitis without hematuria 07/27/2017 Nausea and vomiting 07/26/2017 Overview (07/28/2017): Added automatically from request for surgery [id number] Pulmonary embolism 08/09/2016 Assessment & Plan (10/23/2017 2:05 AM CDT): On Rivaroxaban Lymphedema of left upper extremity 08/09/2016 Assessment & Plan (05/25/2024 7:53 AM BLUEPRINTER): S/p L axillary lymph node dissection 2014, [...] syndrome Assessment & Plan (05/22/2024 11:18 AM BLUEPRINTER): -continue home Requip 5mg nightly Pain of lower extremity 03/12/2013 Overview (07/29/2016): Leg pain Essential hypertension Assessment & Plan (05/23/2024 10:42 AM BLUEPRINTER): -Chart history of HTN but not on meds -BP elevated on admission, likely some pain contributing -Monitor closely once pain under adequate control, discussed following up with PCP for this Chronic anticoagulation Restless leg syndrome 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 Type 2 diabetes mellitus without complication Assessment & Plan (05/24/2024 1:39 PM BLUEPRINTER): -Last Ha1c 8.4 in 2023, repeat 8.7 [...] Encounters Date Type Department Care Team Description 12/20/2024 Orders Only [facility] Cardiology [address] [place] [address] Laury Moore NP 12/18/2024 Telephone [facility] Medicine Oncology [address] [place] [address] Eden Carney, NURIS 12/17/2024 [facility] Subsequent Outreach [facility] [address] [place] [id number] Madelyn Cruz NP 12/17/2024 [facility] Subsequent Outreach [facility] [address] [place] [address] Madison Chadwick, [facility] 12/11/2024 3:16 PM CDT - 12/11/2024 9:03 PM CDT Emergency [facility] Emergency Department [address] [place] [phone] Shortness of breath (Primary Dx); Generalized weakness Discharge Disposition: Discharge to home or self care 12/10/2024 [facility] Subsequent Outreach [facility] [address] [place] [address] Madison Chadwick, [facility] 12/07/2024 10:38 PM CDT - 12/08/2024 2:52 AM CDT Emergency [facility] Emergency Department [address] [place] [phone] Gil Diez DO Dehydration (Primary Dx) Discharge Disposition: Discharge to home or self care 12/06/2024 [facility] Initial Outreach [facility] [address] [place] [phone] Yunier Hernandez, RN 12/03/2024 [facility] Initial Eligibility Review [facility] [address] [place] [address] Yunier Hernandez, RN 12/02/2024 5:27 PM CDT - 12/05/2024 3:30 PM CDT Hospital Encounter [facility] 5 Med [address]urg [address] [place] [phone] Patrick Rice DO Medavaram, Atul, MD Saravanan, Pathanjali, MD Shortness of breath (Primary Dx); Near syncope Discharge Disposition: Discharge to home or self [...] tobacco use Alcohol Use Standard Drinks/Week Comments Never 0 (1 standard drink = 0.6 oz pur e alcohol) Social Connection and Isolation Panel Answer Date [...] , or living with a partner? 05/24/2024 Overall Financial Resource Strain (CARDIA) Answe r Date Recorded How hard is it for you to pa y for the very basics like food, housing, medical care, and heating? Somewhat hard 05/24/2024 PHQ-2 Answer Date Recorded PHQ-2 Score 1 12/15/2018 PRAPARE - Transportation Answer Date Re corded [...] in a mcfp (including now)? No 05/24/2024 Social Connection and Isolation Panel Answer Date Recorded In a typical week, how many times do you talk on the phone with family, friends, or neighbors? More than three times a week 12/03/2024 How often do you get togethe r with friends or relatives? More than three times a week 12/03/2024 How often do you attend chur or sikh services? More than 4 times per year 12/03/2024 Do you belong to any clubs o r organizations such as restorationism groups, unions, fraternal or athletic groups, or school groups? No 12/03/2024 How often do you attend meet ings of the clubs or organizations you belong to? Never 12/03/2024 Are you , , di vorced, , never , or living with a partner? 12/03/2024 AUDIT-C Answer Date Recorded Q1: How often do you have a drink containing alcohol? Never 12/02/2024 Q2: How many drinks containi ng alcohol do you have on a typical day when you are drinking? Patient does not drink Q3: How often do you have si x or more drinks on one occasion? Never 12/02/2024 Overall Financial Resource Strain (CARDIA) Answe r Date Recorded How hard is it for you to pa y for the very basics like food, housing, medical care, and heating? Somewhat hard 12/03/2024 Hunger Vital Sign Answer Date Recorded Within the past 12 months, y ou worried that your food would run out before you got the money to buy more. Never true 12/04/19 25 Within the past 12 months, t he food you bought just didn't last and you didn't have money to get more. Never true 12/03/2024 PRAPARE - Transportation Answer Date Re corded In the past 12 months, has l ack of transportation kept you from medical appointments or from getting medications? No 11/22 In the past 12 months, has l ack of transportation kept you from meetings, work, or from getting things needed for daily living? No 12/05/2024 Housing Stability Vital Sign Answer [place] e Recorded In the last 12 months, was t here a time when you were not able to pay the mortgage or rent on time? No 12/03/2024 In the past 12 months, how m any times have you moved where you were living? 0 12/03/2024 At any time in the past 12 m [facility], were you homeless or living in a mcfp (including now)? No 12/03/2024 [facility] Utilities Answer Date Recorded In the past 12 months has th e electric, gas, oil, or water company threatened to shut off services in your home? No 12/03/2024 Personal Safety Answer Date Recorded Have you ever been in or are you currently in a harmful physical or emotional relationship or is someone making you feel afraid or unsafe? Denies 12/11/2024 Comments No Sex and Gender Information Value Date Recorded Sex Assigned at Not on file Legal Sex Female 12:24 AM BLUEPRINTER Gender Identity Not on file Sexual Orientation Not on file Obstetrics History Last Filed Vital Signs Vital Sign Reading Time Taken Comments Blood Pressure 121/92 12/11/2024 8:45 PM CDT Pulse 70 12/11/2024 8:45 PM CDT Temperature 36.7 C (98.1 F) 12/11/2024 1:58 PM CDT Respiratory Rate 17 12/11/2024 8:45 PM CDT Oxygen Saturation 95% 12/11/2024 8:45 PM CDT Inhaled Oxygen Concentration - - Weight 127 kg (279 lb 15.8 oz) 12/11/2024 2:01 P M CDT Height 154.9 cm (5' 1) 12/11/2024 1:58 PM CDT Body Mass Index 52.9 12/11/2024 1:58 PM CDT Plan of Treatment Health Maintenance Due Date Last Done Comments Albumin Creatinine Ratio, Urine 1955 Hepatitis C Screening 1955 Dilated Eye Exam 1956 Foot Exam 1956 Hepatitis B Screening 1974 Pneumococcal vaccine 65+ (1 of 2 - PCV) 1975 Zoster Vaccine (1 of 2) 1975 Breast Cancer Screening-Mammogram 08/19/2017 017 Depression Screening 01/23/2019 01/23/2018, 01/24/20 18 Well Visit 65+ 2021 Covid-19 Vaccine (3 - 2023-2 5 season) 2023 05/04/2021, 06/29/2020 Osteoporosis Screening-Bone Density Scan 08/02/2024 08/02/2022, 11/10/2020, 05/15/2017 Influenza Vaccine (#1) 2024 , 01/03/2022, 05/04/2021, Additional history exists Hemoglobin A1C 06/06/2025 12/04/2024, 04/25, 05/21/2024, Additional history exists Lipid Panel 12/04/2025 12/04/2024, 04/25, 10/14/2023, Additional history exists Fall Risk Assessment 12/05/2025 12/05/2024 eGFR 12/11/2025 12/11/2024, 11/22, 12/05/2024, Additional history exists DTaP/Tdap/Td Vaccine (2 - Td or Tdap) 02/22/2026 02/23/2016 Colon Cancer Screening-Colonoscopy 07/04/2027 07/03/2017 Colon Cancer Screening-CT Colonography Discontinued 07/03/2017 Colon Cancer Screening-DNA Stool Discontinued 07/04/19 Colon Cancer Screening-FIT Discontinued 07/03/2017 Colon Cancer Screening-Sigmoidoscopy Discontinued 07/03/2017 Procedures Procedure Name Priority Date/Time Associated Diagnosis Comments URINALYSIS AND REFLEX TO MICROSCOPIC AND CULTURE STAT 12/11/2024 7:55 PM CDT TROPONIN T HIGH-SENSITIVITY 4-HR Timed 12/11/2024 6:58 PM CDT POCT GLUCOSE DEVICE Routine 12/11/2024 6 :05 PM CDT TROPONIN T HIGH-SENSITIVITY 2-HOUR Timed 12/11/2024 5:12 PM CDT POCT GLUCOSE DEVICE Routine 12/11/2024 3 :29 PM CDT EGFR STAT 12/11/2024 3:01 PM CDT PRO B-TYPE NATRIURETIC PEPTIDE STAT 12/11/2024 3:01 PM CDT TROPONIN T HIGH-SENSITIVITY SERIES (BASELINE, 2HR, 4HR, 6HR) STAT 12/11/2024 3:01 PM CDT PRO B-TYPE NATRIURETIC PEPTIDE STAT 12/11/2024 3:01 PM CDT COMPREHENSIVE METABOLIC PANEL STAT 12/11/2024 3:01 PM CDT XR CHEST 1 VIEW ED 12/11/2024 2:29 PM CDT DIFFERENTIAL AUTO STAT 12/11/2024 2:2 3 PM CDT CBC WITH AUTO DIFFERENTIAL STAT 12/11/2024 2:23 PM CDT ECG 12-LEAD STAT 12/11/2024 2:12 PM CDT POCT GLUCOSE DEVICE Routine 12/08/2024 1 :54 AM CDT URINALYSIS, MICROSCOPIC ONLY STAT 12/08/2024 1:50 AM CDT URINALYSIS AND REFLEX TO MICROSCOPIC AND CULTURE STAT 12/08/2024 1:50 AM CDT TROPONIN T HIGH-SENSITIVITY STAT 12/08/2024 1:17 AM CDT INFLUENZA A/B, RSV, AND COVID-19 PCR STAT 12/08/2024 1:[address] CHEST WO CONTRAST ED 12/08/2024 1:04 AM CDT POCT GLUCOSE DEVICE Routine 12/08/2024 1 2:32 AM CDT POCT GLUCOSE DEVICE Routine 12/08/2024 1 2:15 AM CDT POCT GLUCOSE DEVICE Routine 12/07/2024 1 1:58 PM CDT POCT GLUCOSE DEVICE Routine 12/07/2024 1 1:[address] HEAD WO CONTRAST ED 12/07/2024 1 1:26 PM CDT POCT GLUCOSE DEVICE Routine 12/07/2024 1 1:08 PM CDT POCT GLUCOSE DEVICE Routine 12/07/2024 1 1:07 PM CDT XR CHEST 1 VIEW ED 12/07/2024 10:52 PM CDT EGFR STAT 12/07/2024 10:47 PM CDT MAGNESIUM STAT 12/07/2024 10:47 PM CDT DIFFERENTIAL AUTO STAT 12/07/2024 10: 47 PM CDT PRO B-TYPE NATRIURETIC PEPTIDE STAT 12/07/2024 10:47 PM CDT TROPONIN T HIGH-SENSITIVITY SERIES (BASELINE, 2HR, 4HR, 6HR) STAT 12/07/2024 10:47 PM CDT CBC WITH AUTO DIFFERENTIAL STAT 12/07/2024 10:47 PM CDT COMPREHENSIVE METABOLIC PANEL STAT 12/07/2024 10:47 PM CDT ECG 12-LEAD STAT 12/07/2024 10:32 PM CDT ECG 12-LEAD Routine 12/07/2024 10:32 PM CDT POCT GLUCOSE DEVICE Routine 12/05/2024 1 :27 PM CDT XR CHEST PA LATERAL 2 VIEWS IP Routine 12/05/2024 9:16 AM CDT POCT GLUCOSE DEVICE Routine 12/05/2024 8 :38 AM CDT EGFR Routine 12/05/2024 5:04 AM CDT CBC WITHOUT DIFFERENTIAL Routine 12/05/2024 5:04 AM CDT BASIC METABOLIC PANEL Routine 12/05/2024 5:04 AM CDT POCT GLUCOSE DEVICE Routine 12/04/2024 8 :45 PM CDT POCT GLUCOSE DEVICE Routine 12/04/2024 4 :27 PM CDT NM MYOCARDIAL AMYLOIDOSIS IMAGING PLANAR LIMITED IP Routine 12/04/2024 3:39 PM CDT POCT GLUCOSE DEVICE Routine 12/04/2024 1 1:15 AM CDT POCT GLUCOSE DEVICE Routine 12/04/2024 7 :57 AM CDT EGFR Routine 12/04/2024 5:35 AM CDT DIFFERENTIAL AUTO Routine 12/04/2024 5:3 5 AM CDT MAGNESIUM Routine 12/04/2024 5:35 AM CDT COMPREHENSIVE METABOLIC PANEL Routine 12/04/2024 5:35 AM CDT CBC WITH AUTO DIFFERENTIAL Routine 12/04/2024 5:35 AM CDT LIPID PANEL Routine 12/04/2024 5:35 AM CDT HEMOGLOBIN A1C Routine 12/04/2024 5:35 AM CDT IMMUNOGLOBULIN FREE LIGHT CHAINS Routine 12/04/2024 5:35 AM CDT POCT GLUCOSE DEVICE Routine 12/03/2024 9 :20 PM CDT POCT GLUCOSE DEVICE Routine 12/03/2024 4 :42 PM CDT POCT GLUCOSE DEVICE Routine 12/03/2024 1 2:25 PM CDT TRANSTHORACIC ECHO (TTE) COMPLETE W DOPPLER/CF W CONTRAST Routine 12/03/2024 12:06 PM CDT POCT GLUCOSE DEVICE Routine 12/03/2024 8 :13 AM CDT EGFR Routine 12/03/2024 5:13 AM CDT CBC WITHOUT DIFFERENTIAL Routine 12/03/2024 5:13 AM CDT BASIC METABOLIC PANEL Routine 12/03/2024 5:13 AM CDT POCT GLUCOSE DEVICE Routine 12/02/2024 1 1:12 PM CDT TROPONIN T HIGH-SENSITIVITY 6-HOUR Timed 12/02/2024 10:06 PM CDT POCT GLUCOSE DEVICE Routine 12/02/2024 1 0:03 PM CDT TROPONIN T HIGH-SENSITIVITY 4-HR Timed 12/02/2024 8:[address] CHEST PE W CONTRAST ED Urgent/IP Urgent 12/02/2024 7:44 PM CDT D-DIMER, QUANTITATIVE STAT 12/02/2024 6:19 PM CDT SEPSIS LACTATE WITH REFLEX STAT 12/02/2024 6:19 PM CDT DRUGS OF ABUSE SCREEN, URINE WITHOUT CONFIRMATION STAT 12/02/2024 6:19 PM CDT URINALYSIS AND REFLEX TO MICROSCOPIC AND CULTURE STAT 12/02/2024 6:19 PM CDT TROPONIN T HIGH-SENSITIVITY 2-HOUR Timed 12/02/2024 5:53 PM CDT POCT GLUCOSE DEVICE Routine 12/02/2024 4 :25 PM CDT EGFR STAT 12/02/2024 3:57 PM CDT DIFFERENTIAL AUTO STAT 12/02/2024 3:5 7 PM CDT PRO B-TYPE NATRIURETIC PEPTIDE STAT 12/02/2024 3:57 PM CDT TROPONIN T HIGH-SENSITIVITY SERIES (BASELINE, 2HR, 4HR, 6HR) STAT 12/02/2024 3:57 PM CDT CBC WITH AUTO DIFFERENTIAL STAT 12/02/2024 3:57 PM CDT COMPREHENSIVE METABOLIC PANEL STAT 12/02/2024 3:57 PM CDT XR CHEST 1 VIEW ED 12/02/2024 3:44 PM CDT ECG 12-LEAD STAT 12/02/2024 3:33 PM CDT CARDIOLOGY DOCUMENT SCAN Routine 11/19/2024 11:45 AM CDT DEXA AXIAL SKELETON BONE DENSITY 1 OR MORE SITES Schedule Routine, Read Routine (OP Routine) 08/02/2022 10:53 AM CDT Malignant neoplasm of upper-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, unspecified estrogen receptor status (HCC) COLONOSCOPY REPORT 07/03/2017 SCREENING MAMMOGRAM Routine 08/19/2016 7 :27 PM CDT from Last 3 Months or Most Recently Relevant to Health Maintenance Results * Urinalysis reflex to microscopic and culture Urine (12/11/2024 7:55 PM CDT) Color, ur Yellow Yellow Comment:Testing performed by : [address] [address] Clarity, ur Clear Clear MARY JANE Comment:Testing performed by : [address] [address] Specific gravity, ur 1.018 1.003 - 1.030 MARY JANE Comment:Testing performed by : [address] [address] pH, urine 6.5 MARY JANE Comment: Interpretive Data U rine pH is affected by diet, medications, systemic acid-base disturbances, and renal tubular function. pH may affect urinary stone formation. For example, urine pH below 6.0 may help reduce the tendency for calcium phosphate stones and pH greater than 6.0 may reduce the tendency for uric acid stone formation. Source: [facility] [employer] Current Interpretive Data was last revised on 2017 Testing performed by: [address] [address] Protein, ur ql Negative Negative MARY JANE Comment:Testing performed by : [address] [address] Glucose, ur ql Negative Negative MARY JANE Comment:Testing performed by : [address] [address] Ketones, ur Negative Negative MARY JANE Comment:Testing performed by : [address] [address] Bilirubin, ur Negative Negative MARY JANE Comment:Testing performed by : [address], [place]., [address] Blood, ur Negative Negative MARY JANE Comment:Testing performed by : [address], [place]., [address] Urobilinogen, ur <2.0 <2.0 mg/dL MARY JANE PHAM Comment:Testing performed by : [address] [address] Nitrite, ur Negative Negative MARY JANE PHAM Comment:Testing performed by : [address] [address] Leukocyte esterase, ur Negative Negative MARY JANE PHAM Comment:Testing performed by : [address] [address] UA reflex comment Reflex conditions for microscopic UA and culture not met. MARY JANE PHAM Comment:Testing performed by : [address] [address] Urine 12/11/2024 7:55 PM CDT 12/11/2024 7:58 PM CDT us Blaze Armenta NP LAB MICROBIOLOGY - GENERAL ORDER [place] Final Result MARY JANE PHAM [address] [place] [address] [place] [address] * (ABNORMAL) Troponin T high-sensitivity 4-hour (12/11/2024 6:58 PM CDT) Trop T hs 24(H) <=14 ng/L Comment: Interpretive Data For further hscTnT resources including the diagnostic algorithm and an aid in interpretation, copy and paste this link: https://nrl.testcatalog.org/show/hsTrop Current Interpretive Data last revised 2020. Testing performed by: [address] [address] Trop T hs delta -2 ng/L MARY JANE PHAM Comment:Testing performed by : [address] [address] Trop T hs interp Insignificant MARY JANE PHAM Comment:Testing performed by : [address] [address] Blood 12/11/2024 6:58 PM CDT 12/11/2024 7:03 PM CDT us Rosa MCKEON LAB BLOOD ORDERABLES Final Resu lt Performing Organization Address [facility] Co de Phone Number MARY JANE [address] [place] [address] * POCT glucose (12/11/2024 6:05 PM CDT) Glucose, POC 132 70 - 199 mg/dL Comment:Testing performed by : [address] [address] Blood 12/11/2024 6:05 PM CDT 12/11/2024 6:05 PM CDT us Notinfile Unknown LAB POCT ORDERABLES - DEVICE F inal Result Performing Organization Address [facility] de Phone Number MARY JANE [address] [address] * (ABNORMAL) Troponin T high-sensitivity 2-hour (12/11/2024 5:12 PM CDT) Trop T hs 23(H) <=14 ng/L Comment: Interpretive Data For further hscTnT resources including the diagnostic algorithm and an aid in interpretation, copy and paste this link: https://nrl.testcatalog.org/show/hsTrop Current Interpretive Data last revised 2020. Testing performed by: [address] [address] Trop T hs delta -3 ng/L MARY JANE Comment:Testing performed by : [address] [address] Trop T hs interp Insignificant MARY JANE PHAM Comment:Testing performed by : [address] [address] Blood 12/11/2024 5:12 PM CDT 12/11/2024 5:14 PM CDT Rosa MCKEON LAB BLOOD ORDERABLES Final Resu lt Performing Organization Address [facility] Co de Phone Number MARY JANE [address] [place] [address] * POCT glucose (12/11/2024 3:29 PM CDT) [facility] Glucose, POC 141 70 - 199 mg/dL Comment:Testing performed by : [facility], [address] [place] [address]., [address] Blood 12/11/2024 3:29 PM CDT 12/11/2024 3:29 PM CDT us Notinfile Unknown LAB POCT ORDERABLES - DEVICE F inal Result Performing Organization Address [facility] Co de Phone Number MARY JANE [address] [place] [address] * (ABNORMAL) Troponin T high-sensitivity series (baseline, 2hr, 4hr, 6hr) (12/11/2024 3:01 PM CDT) [facility] Trop T hs 26(H) <=14 ng/L Comment: Interpretive Data For further hscTnT resources including the diagnostic algorithm and an aid in interpretation, copy and paste this link: https://nrl.testcatalog.org/show/hsTrop Current Interpretive Data last revised 2020. Testing performed by: [facility], [address] [place] [address]., [id number] Blood 12/11/2024 3:01 PM CDT 12/11/2024 3:12 PM CDT us Rosa MCKEON LAB BLOOD ORDERABLES Final Resu lt Performing Organization Address [facility] Co de Phone Number MARY JANE [address] [place] [address] * eGFR (12/11/2024 3:01 PM CDT) [facility] eGFR >90 >=60 mL/min/1. 73 m2 [...] was last reviewed 2021. Testing performed by: [facility], [address] [place] [address]., [address] Blood 12/11/2024 3:01 PM CDT 12/11/2024 3:12 PM CDT us Rosa MCKEON LAB BLOOD ORDERABLES Final Resu lt [facility] [address] [facility] [place] [address] * Pro B-type natriuretic peptide (12/11/2024 3:01 PM CDT) NT-proBNP 64 <=300 pg/mL Comment: Interpretive Comments: A. Dyspnea [...] Last Revised Date: 2017. Testing performed by: [facility], [address] [place] [address]., [address] Blood 12/11/2024 3:01 PM CDT 12/11/2024 3:12 PM CDT us Rosa MCKEON LAB BLOOD ORDERABLES Final Resu lt [facility] [address] [facility] Department [place] [address] * Pro B-type natriuretic peptide (12/11/2024 3:01 PM CDT) NT-proBNP 63 <=300 pg/mL Comment: Interpretive Comments: A. Dyspnea [...] Last Revised Date: 2017. Testing performed by: [address] [address] Blood 12/11/2024 3:01 PM CDT 12/11/2024 3:12 PM CDT Rosa MCKEON LAB BLOOD ORDERABLES Final Resu lt MARY JANE 9[address] [facility] Department of Laboratories [place], [place] [id number] * Comprehensive metabolic panel (12/11/2024 3:01 PM CDT) Sodium 138 135 - 145 mmol/L Comment:Testing performed by : [address] [address] Potassium, pl 4.1 3.3 - 4.9 mmol/L MARY JANE PHAM Comment:Testing performed by : [address] [address] Chloride 99 97 - 110 mmol/L MARY JANE Comment:Testing performed by : [address] [address] CO2 25 22 - 32 mmol/L MARY JANE PHAM Comment:Testing performed by : [address] [address] Anion gap 14 2 - 15 mmol/L MARY JANE PHAM Comment:Testing performed by : [address] [address] BUN 18 6 - 25 mg/dL MARY JANE PHAM Comment:Testing performed by : [address] [address] Creatinine 0.70 0.60 - 1.10 mg/dL MARY JANE Comment:Testing performed by : [address] [address] Glucose 179 70 - 199 mg/dL MARY [...] was last revised 2022. Testing performed by: [address] [address] Calcium 10.0 8.5 - 10.3 mg/dL MARY JANE Comment:Testing performed by : [address] [address] Bilirubin, total 0.6 0.1 - 1.2 mg/dL [facility] Comment:Testing performed by : [address] [address] Protein, pl 7.8 6.5 - 8.5 g/dL MARY JANE Comment:Testing performed by : [address] [address] Albumin 4.1 3.5 - 5.0 g/dL MARY JANE Comment:Testing performed by : [address] [address] Alk phos 81 40 - 130 Units/L MARY JANE Comment:Testing performed by : [address] [address] ALT 21 7 - 45 Units/L [facility] Comment:Testing performed by : [address] [address] AST 21 10 - 45 Units/L MARY JANE Comment:Testing performed by : [address] [address] Blood 12/11/2024 3:01 PM CDT 12/11/2024 3:12 PM CDT Rosarupert Cruz LINDA LAB BLOOD ORDERABLES Final Resu lt MARY JANE [address] [facility] Department [place] [address] * XR Chest 1 Vw Portable (If patient hemodynamically UNstable or UNable to ambulate) (12/11/2024 2:29PM CDT) Anatomical Region Laterality Modality Body, Chest N/A Computed Radiogr aphy 12/11/2024 3:00 PM CDT Narrative 12/11/2024 3:02 PM CDT EXAM DESCRIPTION: XR CHEST 1 VIEW REASON FOR STUDY: chest pain Chest tightness and shortness of breath onset 12/07 TECHNIQUE: Single radiographic view(s) of the chest. COMPARISON: Chest radiograph 12/07/2024 FINDINGS: LUNGS: Bibasilar atelectasis. No focal opacity, pleural effusion, or pneumothorax. HEART/MEDIASTINUM: Cardiac silhouette normal in size. Mediastinal and hilar contours appear normal. LINES/TUBES: None. BONES: No acute osseous abnormality. IMPRESSION: No acute cardiopulmonary abnormality. THIS IS AN ELECTRONICALLY VERIFIED FINAL REPORT 12/11/2024 3:02 PM - Electronically signed by Olinda Bernal M.D. FT: FT Report ID: [id number] Reading Location: [id number] Procedure Note Olinda Wells MD - 12/11/2024 EXAM DESCRIPTION: XR CHEST 1 VIEW REASON FOR STUDY: chest pain Chest tightness and shortness of breath onset 12/07 TECHNIQUE: Single radiographic view(s) of the chest. COMPARISON: Chest radiograph 12/07/2024 FINDINGS: LUNGS: Bibasilar atelectasis. No focal opacity, pleuraleffusion, or pneumothorax. HEART/MEDIASTINUM: Cardiac silhouette normal in size. Mediastinal andhilar contours appear normal. LINES/TUBES: None. BONES: No acute osseous abnormality. IMPRESSION: No acute cardiopulmonary abnormality. THIS IS AN ELECTRONICALLY VERIFIED FINAL REPORT 12/11/2024 3:02 PM - Electronically signed by Olinda Bernal M.D. FT: FT Report ID: [id number] Reading Location: [place] [address] Rosa MCKEON IMG XR PROCEDURES Final Result * (ABNORMAL) Differential, auto (12/11/2024 2:23 PM CDT) Neutrophil abs 7.54(H) 1.50 - 6.50 K/cumm Comment:Testing performed by : [address] [address] Imm gran abs 0.04 0.00 - 0.10 K/cumm MARY JANE Comment:Testing performed by : [address] [address] Lymphocyte abs 2.07 0.80 - 3.30 K/cumm MARY JANE Comment:Testing performed by : [address] [address] Monocyte abs 0.86(H) 0.20 - 0.80 K/cumm MARY JANE Comment:Testing performed by : [address] [address] Eosinophil abs 0.23 0.00 - 0.50 K/cumm MARY JANE Comment:Testing performed by : [address] [address] Basophil abs 0.05 0.00 - 0.10 K/cumm MARY JANE Comment:Testing performed by : [address] [address] Neutrophil pct 69.8 % MARY JANE Comment: Interpretive Data Percent cell count reference ranges are not reported, since discordance with absolute values may lead to misinterpretation of CBC data. Current Interpretive Data was last revised on 2017. Testing performed by: [address] [address] Imm gran pct 0.4 % [facility] Comment: Interpretive Data Percent cell count reference ranges are not reported, since discordance with absolute values may lead to misinterpretation of CBC data. Current Interpretive Data was last revised on 2017. Testing performed by: [address] [address] Lymphocyte pct 19.2 % [facility] Comment: Interpretive Data Percent cell count reference ranges are not reported, since discordance with absolute values may lead to misinterpretation of CBC data. Current Interpretive Data was last revised on 2017. Testing performed by: [address] [address] Monocyte pct 8.0 % [facility] Comment: Interpretive Data Percent cell count reference ranges are not reported, since discordance with absolute values may lead to misinterpretation of CBC data. Current Interpretive Data was last revised on 2017. Testing performed by: [address] [address] Eosinophil pct 2.1 % [facility] Comment: Interpretive Data Percent cell count reference ranges are not reported, since discordance with absolute values may lead to misinterpretation of CBC data. Current Interpretive Data was last revised on 2017. Testing performed by: [address] [address] Basophil pct 0.5 % [facility] Comment: Interpretive Data Percent cell count reference ranges are not reported, since discordance with absolute values may lead to misinterpretation of CBC data. Current Interpretive Data was last revised on 2017. Testing performed by: [address] [address] Blood 12/11/2024 2:23 PM CDT 12/11/2024 2:25 PM CDT us Rosa MCKEON LAB BLOOD ORDERABLES Final Resu lt MARY JANE [address] [facility] Department of Laboratories [place], [place] [id number] * (ABNORMAL) CBC with auto differential (12/11/2024 2:23 PM CDT) [facility] WBC 10.79(H) 3.80 - 9.90 K/cumm Comment:Testing performed by : [address], [address] Hgb 13.3 11.9 - 15.5 g/dL MARY JANE Comment:Testing performed by : [address] [address] Hct 40.8 35.6 - 45.5 % MARY JANE Comment:Testing performed by : [address], [address] Plt 313 150 - 400 K/cumm MARY JANE Comment:Testing performed by : [address] [address] MPV 9.8 9.1 - 12.3 fL MARY JANE Comment:Testing performed by : [address], [address] RBC 4.64 3.90 - 5.20 M/cumm MARY JANE Comment:Testing performed by : [address], [address] MCV 87.9 81.3 - 96.4 fL MARY JANE Comment:Testing performed by : [address] [address] MCH 28.7 27.1 - 33.3 pg MARY JANE Comment:Testing performed by : [address], [address] MCHC 32.6 32.3 - 35.7 g/dL MARY JANE Comment:Testing performed by : [address], [address] RDW CV 13.2 11.1 - 14.9 % MARY JANE Comment:Testing performed by : [address], [address] RDW SD 42.5 35.7 - 48.1 fL MARY JANE Comment:Testing performed by : [address], [address] NRBC abs 0.00 0.00 - 0.01 K/cumm MARY JANE PHAM Comment:Testing performed by : [facility], [address] [place] [address]., [address] Blood Venous blood specimen / Unknown 12/11/2024 2:23 PM CDT 12/11/2024 2:25 PM CDT Rosa MCKEON LAB BLOOD ORDERABLES Final Resu lt MARY JANE PHAM 76[address] [facility] Department [place] [address] * ECG 12 lead (12/11/2024 2:12 PM CDT) Ventricular Rate EKG/Min 85 BPM [facility] Atrial Rate 85 BPM [facility] OH-Interval (MSEC) 106 ms [facility] QRS-Interval (MSEC) 82 ms [facility] QT-Interval (MSEC) 352 ms [facility] QTc 418 ms [facility] P [place] -12 degrees [facility] R [place] 8 degrees [facility] T [place] 27 degrees [facility] Diagnosis Sinus rhythm with short [place] Otherwise normal ECG When compared with ECG of 07-DEC-2024 22:32, Previous ECG has undetermined rhythm, needs review Confirmed by SAGAR DELEON M.D. ([id number]) on 12/11/2024 4:50:58 PM [facility] 12/11/2024 2:12 PM CDT 12/11/2024 4:50 PM CDT Rosa MCKEON ECG ORDERABLES Final Result Performing Organization Address [facility] Co de Phone Number [facility] * POCT glucose (12/08/2024 1:54 AM CDT) Pathologist [facility] Glucose, POC 112 70 - 199 mg/dL Comment:Testing performed by : [facility], [address] [place] [address]., [address] Glucose comment 1 RN/MD Notified MARY JANE PHAM Comment:Testing performed by : [address] [address] Blood 12/08/2024 1:54 AM CDT 12/08/2024 1:54 AM CDT Gil Diez DO LAB POCT ORDERABLES - DEVIC E Final Result MARY JANE PHAM [address] [facility] Department [place] [address] * (ABNORMAL) Urinalysis reflex to microscopic and culture Urine (12/08/2024 1:50 AM CDT) Color, ur Yellow Yellow Comment:Testing performed by : [address] [address] Clarity, ur Clear Clear MARY JANE Comment:Testing performed by : [address] [address] Specific gravity, ur 1.020 1.003 - 1.030 MARY JANE Comment:Testing performed by : [address] [address] pH, urine 5.5 MARY JANE Comment: Interpretive Data U rine pH is affected by diet, medications, systemic acid-base disturbances, and renal tubular function. pH may affect urinary stone formation. For example, urine pH below 6.0 may help reduce the tendency for calcium phosphate stones and pH greater than 6.0 may reduce the tendency for uric acid stone formation. Source: [facility] [employer] Current Interpretive Data was last revised on 2017 Testing performed by: [address] [address] Protein, ur ql Negative Negative MARY JANE Comment:Testing performed by : [address] [address] Glucose, ur ql Negative Negative MARY JANE Comment:Testing performed by : [address] [address] Ketones, ur Negative Negative MARY JANE Comment:Testing performed by : [address] [address] Bilirubin, ur Negative Negative MARY JANE Comment:Testing performed by : [address] [address] Blood, ur Trace(A) Negative CERNER MH Comment:Testing performed by : [facility], [address] [place] [address], [place]., [address] Urobilinogen, ur <2.0 <2.0 mg/dL MARY JANE PHAM Comment:Testing performed by : [address], [place]., [address] Nitrite, ur Negative Negative MARY JANE Comment:Testing performed by : [address] [address] Leukocyte esterase, ur Negative Negative MARY JANE Comment:Testing performed by : [address], [place]., [address] UA reflex comment Reflex to microscopic UA will be performed. MARY JANE Comment:Testing performed by : [address], [place]., [address] Urine 12/08/2024 1:50 AM CDT 12/08/2024 1:53 AM CDT Gil Diez DO LAB MICROBIOLOGY - GENERAL ORDERABLES Final Result MARY JANE [address] [facility] Department [place] [address] * (ABNORMAL) Urinalysis, microscopic only (12/08/2024 1:50 AM CDT) WBC, ur 0-5 0 - 5 /HPF Comment:Testing performed by : [address] [address] RBC, ur 0-2 0 - 2 /HPF MARY JANE Comment:Testing performed by : [address], [place]., [address] Epithelial cells, squamous, ur 6-10(A) 0 - 5 /HPF MARY JANE Comment:Testing performed by : [address], [place]., [address] Mucous, ur Present(A) MARY JANE PHAM Comment:Testing performed by : [address], [place]., [address] Culture Reflex Comment Reflex conditions for urine culture (WBC >10) not met. MARY JANE PHAM Comment:Testing performed by : [address] [address] Urine 12/08/2024 1:50 AM CDT 12/08/2024 1:53 AM CDT Gil Diez DO LAB URINE ORDERABLES Final Result Performing Organization Address [facility] Co de Phone Number MARY JANE [facility] [place] [address] * (ABNORMAL) Troponin T high-sensitivity (12/08/2024 1:17 AM CDT) Trop T hs 28(H) <=14 ng/L Comment: Interpretive Data For further hscTnT resources including the diagnostic algorithm and an aid in interpretation, copy and paste this link: https://nrl.testcatalog.org/show/hsTrop Current Interpretive Data last revised 2020. Testing performed by: [address] [address] Blood 12/08/2024 1:17 AM CDT 12/08/2024 1:20 AM CDT Gil Diez DO LAB BLOOD ORDERABLES Final Result Performing Organization Address [facility] Co de Phone Number MARY JANE [facility] [place] [address] * Influenza A/B, RSV, and COVID-19 PCR Nasopharyngeal (12/08/2024 1:05 AM CDT) COVID-19 RNA Negative Negative Comment:Testing performed by : [address] [address] Influenza A RNA Negative Negative MARY JANE Comment:Testing performed by : [address] [address] Influenza B RNA Negative Negative MARY JANE Comment:Testing performed by : [address] [address] RSV RNA Negative Negative MARY JANE Comment: Interpretive data: Testing performed by [facility]. This test is performed using the [employer] Xpert Xpress CoV-2/Flu/RSV plus assay. This is a multiplex, real-time reverse transcriptase PCR assay intended for the qualitative detection of nucleic acid from SARS-CoV-2, influenza A, influenza B, and respiratory syncytial virus. This assay has been cleared by the [place] Food and Drug administration. The performance characteristics have been verified by the [facility]. Results must be considered in the clinical context, and a negative result does not rule out infection. Interpretive Data last revised 2023 Testing performed by: [facility], [address] [place] [address], [place]., [address] Nasopharyngeal 12/08/2024 1: 05 AM CDT 12/08/2024 1:10 AM CDT Narrative MARY JANE - 12/08/2024 1:49 AM CDT Is the Patient experiencing symptoms consistent with COVID?->Yes Gil Diez DO LAB MICROBIOLOGY - GENERAL ORDERABLES Final Result MARY JANE [address] [facility] Department of Laboratories [place], [place] [id number] * CT Chest WO Contrast (12/08/2024 1:04 AM CDT) Anatomical Region Laterality Modality Body N/A Computed Tomogra phy 12/08/2024 1:15 AM CDT Narrative 12/08/2024 1:17 AM CDT EXAM DESCRIPTION: CT CHEST WO CONTRAST REASON FOR STUDY: Respiratory illness, nondiagnostic xray 69 y.o. female presenting to the ED c/o multiple symptoms. Shortness of breath and fatigue seemed to be most significant symptoms, noted this morning on wakening. Patient notes just being discharged from the hospital 4-5 days ago for new diagnosis of CHF. States she takes Lasix, but just started on spironolactone. States she feels dehydrated. States leg swelling is much better than it was. She also notes feeling her heart lb in race sometimes. She notes feeling lightheaded sometimes and also feeling off balance sometimes when she walks. She denies any fever or chest pain TECHNIQUE: CT scan of the chest performed without intravenous contrast using helical scanning technique. Reconstructed coronal and sagittal MPR images reviewed. All images stored on PACS. Automated exposure control was used as a dose optimization technique for this examination. COMPARISON: 12/02/2024 FINDINGS: LUNGS: Faint scattered atelectasis. Trachea and major airways patent. HEART/MEDIASTINUM/SHALA: Heart size normal. Coronary artery calcifications. No enlarged lymph node. Thoracic inlet unremarkable. UPPER ABDOMEN: Small hiatal hernia MUSCULOSKELETAL: Moderate multilevel disc disease. Spinal stimulator. Shoulder arthritis. CHEST WALL: Unremarkable. IMPRESSION: No acute abnormality identified. THIS IS AN ELECTRONICALLY VERIFIED FINAL REPORT 12/08/2024 1:17 AM - Electronically signed by Juve Gallegos M.D. AR: VALERY Report ID: [id number] Reading Location: [place] [address] Procedure Note Juve Gallegos MD - 12/08/2024 EXAM DESCRIPTION: CT CHEST WO CONTRAST REASON FOR STUDY: Respiratory illness, nondiagnostic xray 69 y.o. female presenting to the ED c/o multiple symptoms. Shortness of breath and fatigue seemed to be most significant symptoms, noted thismorning on wakening. Patient notes just being discharged from the hospital 4-5days ago for new diagnosis of CHF. States she takes Lasix, but just startedon spironolactone. States she feels dehydrated. States leg swelling is much better than it was. She also notes feeling her heart lb in racesometimes. She notes feeling lightheaded sometimes and also feeling off balance sometimes when she walks. She denies any fever or chest pain TECHNIQUE: CT scan of the chest performed without intravenous contrastusing helical scanning technique. Reconstructed coronal and sagittal MPR images reviewed. All images stored on PACS. Automated exposure control was usedas a dose optimization technique for this examination. COMPARISON: 12/02/2024 FINDINGS: LUNGS: Faint scattered atelectasis. Trachea and major airways patent. HEART/MEDIASTINUM/SHALA: Heart size normal. Coronary arterycalcifications. No enlarged lymph node. Thoracic inlet unremarkable. UPPER ABDOMEN: Small hiatal hernia MUSCULOSKELETAL: Moderate multilevel disc disease. Spinal stimulator. Shoulder arthritis. CHEST WALL: Unremarkable. IMPRESSION: No acute abnormality identified. THIS IS AN ELECTRONICALLY VERIFIED FINAL REPORT 12/08/2024 1:17 AM - Electronically signed by Juve Gallegos M.D. AR: VALERY Report ID: [id number] Reading Location: [place] [address] Gil Diez DO IMG CT PROCEDURES Final Res ult * POCT glucose (12/08/2024 12:32 AM CDT) Glucose, POC 92 70 - 199 mg/dL Comment:Testing performed by : [address] [address] Blood 12/08/2024 12:3 2 AM CDT 12/08/2024 12:32 AM CDT Gil Diez DO LAB POCT ORDERABLES - DEVIC E Final Result Performing Organization Address [facility] Co de Phone Number [address] [place] [address] * POCT glucose (12/08/2024 12:15 AM CDT) Glucose, POC 88 70 - 199 mg/dL Comment:Testing performed by : [address] [address] Glucose comment 1 RN/MD Notified [facility] Comment:Testing performed by : [address] [address] Blood 12/08/2024 12:1 5 AM CDT 12/08/2024 12:15 AM CDT Gil Diez DO LAB POCT ORDERABLES - DEVIC E Final Result Performing Organization Address [facility] Co de Phone Number [address] [place] [place] [address] * POCT glucose (12/07/2024 11:58 PM CDT) [facility] Glucose, POC 80 70 - 199 mg/dL Comment:Testing performed by : [facility], [address] [place] [address]., [address] Glucose comment 1 RN/MD Notified MARY JANE PHAM Comment:Testing performed by : [facility], [address] [place] [address]., [address] Glucose comment 2 Will Repeat Test MARY JANE PHAM Comment:Testing performed by : [address] [address] Blood 12/07/2024 11:5 8 PM CDT 12/07/2024 11:58 PM CDT Gil Diez DO LAB POCT ORDERABLES - DEVIC E Final Result Performing Organization Address City/[facility]/ZIP Co de Phone Number MARY JANE [address] [place] [address] * (ABNORMAL) POCT glucose (12/07/2024 11:42 PM CDT) [facility] Glucose, POC 67(L) 70 - 199 mg/dL Comment:Testing performed by : [address] [address] Glucose comment 1 RN/MD Notified MARY JANE PHAM Comment:Testing performed by : [facility], [address] [place] [address]., [address] Blood 12/07/2024 11:4 2 PM CDT 12/07/2024 11:42 PM CDT Gil Diez DO LAB POCT ORDERABLES - DEVIC E Final Result [address] [place] [address] * CT Head WO Contrast (12/07/2024 11:26 PM CDT) Anatomical Region Laterality Modality Head and Neck N/A Computed Tomogra phy 12/07/2024 11:5 1 PM CDT Narrative 12/07/2024 11:53 PM CDT EXAM DESCRIPTION: CT HEAD WO CONTRAST REASON FOR STUDY: feeling off balance I'm not feeling very good reports I feel dehydrated, I'm short of breath, and I'm losing my balance, and I'm really fatigued. PT states these symptoms come and go. Pt states woke up with these symptoms at 0800, last known well 2129 last noc. TECHNIQUE: Axial images acquired through the brain without intravenous contrast. Images stored on PACS. Automated exposure control was used as a dose optimization technique for this examination. COMPARISON: 01/26/2023 FINDINGS: BRAIN: No hemorrhage, edema or mass effect. No recent infarct. Mild diffuse atrophy of the brain is again noted. EXTRA-AXIAL SPACES: No fluid collections. No masses. CALVARIUM: No fracture. SINUSES/MASTOIDS: No fluid or mucosal thickening. ORBITS: No significant abnormality. OTHER: No other significant abnormality. IMPRESSION: No acute intracranial findings. THIS IS AN ELECTRONICALLY VERIFIED FINAL REPORT 12/07/2024 11:53 PM - Electronically signed by Patrick Zhou M.D. KH: KATH Report ID: [id number] Reading Location: [place] [address] Procedure Note Patrick Zhou MD - 12/07/2024 EXAM DESCRIPTION: CT HEAD WO CONTRAST REASON FOR STUDY: feeling off balance I'm not feeling very good reports I feel dehydrated, I'm short ofbreath, and I'm losing my balance, and I'm really fatigued. PT states thesesymptoms come and go. Pt states woke up with these symptoms at 0800, last knownwell 2129 last noc. TECHNIQUE: Axial images acquired through the brain without intravenous contrast. Images stored on PACS. Automated exposure control was used asa dose optimization technique for this examination. COMPARISON: 01/26/2023 FINDINGS: BRAIN: No hemorrhage, edema or mass effect. No recent infarct. Mild diffuse atrophy of the brain is again noted. EXTRA-AXIAL SPACES: No fluid collections. No masses. CALVARIUM: No fracture. SINUSES/MASTOIDS: No fluid or mucosal thickening. ORBITS: No significant abnormality. OTHER: No other significant abnormality. IMPRESSION: No acute intracranial findings. THIS IS AN ELECTRONICALLY VERIFIED FINAL REPORT 12/07/2024 11:53 PM - Electronically signed by Patrick Zhou M.D. KH: KATH Report ID: [id number] Reading Location: [place] [address] Gil Diez DO IMG CT PROCEDURES Final Res ult * POCT glucose (12/07/2024 11:08 PM CDT) Glucose, POC 75 70 - 199 mg/dL Comment:Testing performed by : [address] [address] Blood 12/07/2024 11:0 8 PM CDT 12/07/2024 11:08 PM CDT Gil Diez DO LAB POCT ORDERABLES - DEVIC E Final Result Performing Organization Address [facility] Co de Phone Number [address] [place] [address] * POCT glucose (12/07/2024 11:07 PM CDT) Glucose, POC 71 70 - 199 mg/dL Comment:Testing performed by : [address] [address] Blood 12/07/2024 11:0 7 PM CDT 12/07/2024 11:07 PM CDT Gil Diez DO LAB POCT ORDERABLES - DEVIC E Final Result Performing Organization Address City/[facility]/ZIP Co de Phone Number [address] [place] [address] * XR Chest 1 Vw Portable (If patient hemodynamically UNstable or UNable to ambulate) (12/07/2024 10:52 PM CDT) Anatomical Region Laterality Modality Body, Chest N/A Computed Radiogr aphy 12/07/2024 11:1 9 PM CDT Narrative 12/07/2024 11:20 PM CDT EXAM DESCRIPTION: XR CHEST 1 VIEW REASON FOR STUDY: Shortness of breath I'm not feeling very good reports I feel dehydrated, I'm short of breath, and I'm losing my balance, and I'm really fatigued. PT states these symptoms come and go. Pt states woke up with these symptoms at 0800, last known well 2129 last noc. Best image obtained due to pt body habitus TECHNIQUE: Single radiographic view(s) of the chest. COMPARISON: 12/05/2024 FINDINGS: LUNGS: Extensive bibasilar infiltrates are noted. Underlying chronic lung changes are seen of the lungs. Overlying soft tissues hampers the exam. HEART/MEDIASTINUM: Cardiac silhouette normal in size. Mediastinal and hilar contours appear normal. LINES/TUBES: None. BONES: No acute osseous abnormality. IMPRESSION: Extensive bibasilar infiltrates. THIS IS AN ELECTRONICALLY VERIFIED FINAL REPORT 12/07/2024 11:20 PM - Electronically signed by Patrick Zhou M.D. KH: KATH Report ID: [id number] Reading Location: [id number] Procedure Note Patrick Zhou MD - 12/07/2024 EXAM DESCRIPTION: XR CHEST 1 VIEW REASON FOR STUDY: Shortness of breath I'm not feeling very good reports I feel dehydrated, I'm short ofbreath, and I'm losing my balance, and I'm really fatigued. PT states thesesymptoms come and go. Pt states woke up with these symptoms at 0800, last knownwell 2129 last noc. Best image obtained due to pt body habitus TECHNIQUE: Single radiographic view(s) of the chest. COMPARISON: 12/05/2024 FINDINGS: LUNGS: Extensive bibasilar infiltrates are noted. Underlying chronic lung changes are seen of the lungs. Overlying soft tissueshampers the exam. HEART/MEDIASTINUM: Cardiac silhouette normal in size. Mediastinal andhilar contours appear normal. LINES/TUBES: None. BONES: No acute osseous abnormality. IMPRESSION: Extensive bibasilar infiltrates. THIS IS AN ELECTRONICALLY VERIFIED FINAL REPORT 12/07/2024 11:20 PM - Electronically signed by Patrick Zhou M.D. KH: KATH Report ID: [id number] Reading Location: [place] [address] us Gil Diez DO IMG XR PROCEDURES Final Res ult * (ABNORMAL) Troponin T high-sensitivity series (baseline, 2hr, 4hr, 6hr) (12/07/2024 10:47 PM CDT) Trop T hs 30(H) <=14 ng/L Comment: Interpretive Data For further hscTnT resources including the diagnostic algorithm and an aid in interpretation, copy and paste this link: https://nrl.testcatalog.org/show/hsTrop Current Interpretive Data last revised 2020. Testing performed by: [facility], [address] [place] [address]., [address] Blood 12/07/2024 10:4 7 PM CDT 12/07/2024 10:51 PM CDT us Gil Diez DO LAB BLOOD ORDERABLES Final Result [facility] [address] [facility] Department [place] [address] * eGFR (12/07/2024 10:47 PM CDT) eGFR 83 >=60 mL/min/1. 73 m2 Comment: Interpretive Data [...] last reviewed 2021. Testing performed by: [address] [address] Blood 12/07/2024 10:4 7 PM CDT 12/07/2024 10:51 PM CDT us Gil Diez DO LAB BLOOD ORDERABLES Final Result [facility] Department of Laboratories [place], [place] [id number] * (ABNORMAL) Differential, auto (12/07/2024 10:47 PM CDT) Neutrophil abs 7.66(H) 1.50 - 6.50 K/cumm Comment:Testing performed by : [address] [address] Imm gran abs 0.06 0.00 - 0.10 K/cumm MARY JANE Comment:Testing performed by : [address] [address] Lymphocyte abs 3.48(H) 0.80 - 3.30 K/cumm MARY JANE Comment:Testing performed by : [address] [address] Monocyte abs 1.03(H) 0.20 - 0.80 K/cumm MARY JANE Comment:Testing performed by : [address] [address] Eosinophil abs 0.22 0.00 - 0.50 K/cumm MARY JANE Comment:Testing performed by : [address] [address] Basophil abs 0.05 0.00 - 0.10 K/cumm MARY JANE Comment:Testing performed by : [facility], [address] [place] [address]., [address] Neutrophil pct 61.3 % MARY JANE Comment: Interpretive Data Percent cell count reference ranges are not reported, since discordance with absolute values may lead to misinterpretation of CBC data. Current Interpretive Data was last revised on 2017. Testing performed by: [address] [address] Imm gran pct 0.5 % MARY JANE Comment: Interpretive Data Percent cell count reference ranges are not reported, since discordance with absolute values may lead to misinterpretation of CBC data. Current Interpretive Data was last revised on 2017. Testing performed by: [address] [address] Lymphocyte pct 27.8 % MARY JANE Comment: Interpretive Data Percent cell count reference ranges are not reported, since discordance with absolute values may lead to misinterpretation of CBC data. Current Interpretive Data was last revised on 2017. Testing performed by: [address] [address] Monocyte pct 8.2 % MARY JANE Comment: Interpretive Data Percent cell count reference ranges are not reported, since discordance with absolute values may lead to misinterpretation of CBC data. Current Interpretive Data was last revised on 2017. Testing performed by: [address] [address] Eosinophil pct 1.8 % MARY JANE Comment: Interpretive Data Percent cell count reference ranges are not reported, since discordance with absolute values may lead to misinterpretation of CBC data. Current Interpretive Data was last revised on 2017. Testing performed by: [address] [address] Basophil pct 0.4 % MARY JANE Comment: Interpretive Data Percent cell count reference ranges are not reported, since discordance with absolute values may lead to misinterpretation of CBC data. Current Interpretive Data was last revised on 2017. Testing performed by: [address] [address] Blood 12/07/2024 10:4 7 PM CDT 12/07/2024 10:51 PM CDT us Gil Diez DO LAB BLOOD ORDERABLES Final Result MARY JANE 8068 [facility] Department [place] [address] * Pro B-type natriuretic peptide (12/07/2024 10:47 PM CDT) NT-proBNP 118 <=300 pg/mL Comment: Interpretive Comments: A. Dyspnea [...] Last Revised Date: 2017. Testing performed by: [facility], [address] [place] [address]., [address] Blood 12/07/2024 10:4 7 PM CDT 12/07/2024 10:51 PM CDT us Gil Diez DO LAB BLOOD ORDERABLES Final Result MARY JANE 45[address] [facility] Department of Laboratories [place], [place] [id number] * (ABNORMAL) CBC with auto differential (12/07/2024 10:47 PM CDT) WBC 12.50(H) 3.80 - 9.90 K/cumm Comment:Testing performed by : [address] [address] Hgb 13.2 11.9 - 15.5 g/dL MARY JANE Comment:Testing performed by : [address], [address] Hct 41.9 35.6 - 45.5 % MARY JANE Comment:Testing performed by : [address] [address] Plt 315 150 - 400 K/cumm MARY JANE Comment:Testing performed by : [address] [address] MPV 9.7 9.1 - 12.3 fL MARYJ ANE Comment:Testing performed by : [address] [address] RBC 4.65 3.90 - 5.20 M/cumm MARYJ ANE Comment:Testing performed by : [address] [address] MCV 90.1 81.3 - 96.4 fL MARY JANE Comment:Testing performed by : [address] [address] MCH 28.4 27.1 - 33.3 pg MARY JANE Comment:Testing performed by : [address] [address] MCHC 31.5(L) 32.3 - 35.7 g/dL MARY JANE Comment:Testing performed by : [address], [address] RDW CV 13.3 11.1 - 14.9 % MARY JANE Comment:Testing performed by : [address] [address] RDW SD 43.7 35.7 - 48.1 fL MARY JANE PHAM Comment:Testing performed by : [address] [address] NRBC abs 0.00 0.00 - 0.01 K/cumm MARY JANE PHAM Comment:Testing performed by : [address] [address] Blood 12/07/2024 10:4 7 PM CDT 12/07/2024 10:51 PM CDT Gil Diez DO LAB BLOOD ORDERABLES Final Result Performing Organization Address [facility]/ZIP Co de Phone Number [address] [address] * Magnesium (12/07/2024 10:47 PM CDT) Pathologist [facility] Magnesium 1.9 1.4 - 2.5 mg/dL Comment:Testing performed by : [address] [address] Blood 12/07/2024 10:4 7 PM CDT 12/07/2024 10:51 PM CDT Gil Diez DO LAB BLOOD ORDERABLES Final Result Performing Organization Address [facility] Co de Phone Number [address] [address] * (ABNORMAL) Comprehensive metabolic panel (12/07/2024 10:47 PM CDT) Sodium 141 135 - 145 mmol/L Comment:Testing performed by : [address] [address] Potassium, pl 3.9 3.3 - 4.9 mmol/L MARY JANE PHAM Comment:Testing performed by : [address] [address] Chloride 102 97 - 110 mmol/L MARY JANE PHAM Comment:Testing performed by : [address] [address] CO2 25 22 - 32 mmol/L MARY JANE Comment:Testing performed by : [address] [address] Anion gap 14 2 - 15 mmol/L MARY JANE Comment:Testing performed by : [address] [address] BUN 19 6 - 25 mg/dL MARY JANE Comment:Testing performed by : [address] [address] Creatinine 0.78 0.60 - 1.10 mg/dL MARY JANE Comment:Testing performed by : [address] [address] Glucose 92 70 - 199 mg/dL MARY JANE Comment: [...] was last revised 2022. Testing performed by: [address] [address] Calcium 10.7(H) 8.5 - 10.3 mg/dL MARY JANE Comment:Testing performed by : [address] [address] Bilirubin, total 0.5 0.1 - 1.2 mg/dL [facility] Comment:Testing performed by : [address] [address] Protein, pl 8.4 6.5 - 8.5 g/dL MARY JANE Comment:Testing performed by : [address] [address] Albumin 4.1 3.5 - 5.0 g/dL MARY JANE Comment:Testing performed by : [address] [address] Alk phos 79 40 - 130 Units/L CERNER Comment:Testing performed by : [facility], [address] [place] [address]., [address] ALT 21 7 - 45 Units/L MARY JANE Comment:Testing performed by : [address] [address] AST 21 10 - 45 Units/L MARY JANE Comment:Testing performed by : [address] [address] Blood 12/07/2024 10:4 7 PM CDT 12/07/2024 10:51 PM CDT Gil Diez DO LAB BLOOD ORDERABLES Final Result Performing Organization Address City/[facility]/ZIP Co de Phone Number [facility] [address] [facility] Department [place] [address] * ECG 12 lead (12/07/2024 10:32 PM CDT) Ventricular Rate EKG/Min 78 BPM [facility] Atrial Rate 78 BPM [facility] OH-Interval (MSEC) 104 ms [facility] QRS-Interval (MSEC) 84 ms [facility] QT-Interval (MSEC) 392 ms [facility] QTc 446 ms [facility] P [place] -65 degrees [facility] R [place] 0 degrees [facility] T [place] 44 degrees [facility] Diagnosis Sinus rhythm. Otherwise normal ECG When compared with ECG of 07-DEC-2024 22:32, Premature ventricular complexes are no longer Present Premature atrial complexes are now Present Confirmed by MD JOHNNA, VINCENT ([id number]) on 12/08/2024 11:31:38 PM [facility] 12/07/2024 10:3 2 PM CDT 12/08/2024 11:31 PM CDT Gil Diez DO ECG ORDERABLES Final Resul t Performing Organization Address City/[facility]/ZIP Co de Phone Number [facility] * ECG 12 lead (12/07/2024 10:32 PM CDT) Ventricular Rate EKG/Min 75 BPM [facility] Atrial Rate 75 BPM [facility] OH-Interval (MSEC) 138 ms [facility] QRS-Interval (MSEC) 84 ms [facility] QT-Interval (MSEC) 360 ms [facility] QTc 402 ms [facility] P [place] -78 degrees [facility] R [place] -3 degrees [facility] T [place] 33 degrees [facility] Diagnosis Unusual P axis and short [place], probable junctional rhythm with occasional Premature ventricular complexes Abnormal ECG When compared with ECG of 02-DEC-2024 15:33, Junctional rhythm has replaced Sinus rhythm Confirmed by MD OROPEZA ROBERT ([id number]), editor department RIMA GELLER ([id number]) on 12/08/2024 8:22:42 AM Also confirmed by MD OROPEZA ROBERT ([id number]), editor department KRISTINE LEIJA ([id number]) on 12/09/2024 8:25:14 AM [facility] 12/07/2024 10:3 2 PM CDT 12/09/2024 8:25 AM CDT us Gil Diez DO ECG ORDERABLES Edited Resu lt - Final Performing Organization Address City/[facility]/ZIP Co de Phone Number [facility] * (ABNORMAL) POCT glucose (12/05/2024 1:27 PM CDT) [facility] Glucose, POC 251(H) 70 - 199 mg/dL Comment:Testing performed by : [address] [address] Glucose comment 1 RN/MD Notified MARY JANE PHAM Comment:Testing performed by : [facility], [address] [place] [address]., [address] Blood 12/05/2024 1:27 PM CDT 12/05/2024 1:27 PM CDT Kenzie Jiménez MD LAB POCT ORDERABLES - DE VICE Final Result Performing Organization Address City/[facility]/ZIP Co de Phone Number MARY JANE PHAM [address] [facility] Department [place] [address] * XR Chest PA Lateral 2 Views (12/05/2024 9:16 AM CDT) Anatomical Region Laterality Modality Body, Chest N/A Computed Radiogr aphy 12/05/2024 2:22 PM CDT Narrative 12/05/2024 2:23 PM CDT EXAM DESCRIPTION: XR CHEST PA LATERAL 2 VIEWS REASON FOR STUDY: CHF WITH LOW EJECTION FRACTION, Atelectasis or pulmonary edema follow-up Chf with low ejection fraction, Atelectasis or pulmonary edema follow-up TECHNIQUE: PA and lateral radiographic view(s) of the chest. COMPARISON: 12/02/2024 and 07/01/2024 FINDINGS: LUNGS: There are prominent interstitial markings bilaterally, slightly greater than on the prior examination. These could reflect edema or interstitial infiltrate. No effusion or pneumothorax. HEART/MEDIASTINUM: Cardiac silhouette is within normal limits in size. Pulmonary vascularity is mildly enlarged. LINES/TUBES: Spinal stimulator leads project over the midthoracic spine. BONES: Osteoarthritis of the shoulders. Thoracic spondylosis. IMPRESSION: 1. Interstitial prominence slightly greater than on the most recent prior study which could reflect edema or interstitial infiltrate. Follow-up recommended. THIS IS AN ELECTRONICALLY VERIFIED FINAL REPORT 12/05/2024 2:23 PM - Electronically signed by Barbara Man M.D. TW: TW Report ID: [id number] Reading Location: [id number] Procedure Note Barbara Man MD - 12/05/2024 EXAM DESCRIPTION: XR CHEST PA LATERAL 2 VIEWS REASON FOR STUDY: CHF WITH LOW EJECTION FRACTION, Atelectasis or pulmonary edema follow-up Chf with low ejection fraction, Atelectasis or pulmonary edema follow-up TECHNIQUE: PA and lateral radiographic view(s) of the chest. COMPARISON: 12/02/2024 and 07/01/2024 FINDINGS: LUNGS: There are prominent interstitial markings bilaterally, slightly greater than on the prior examination. These could reflect edemaor interstitial infiltrate. No effusion or pneumothorax. HEART/MEDIASTINUM: Cardiac silhouette is within normal limits in size. Pulmonary vascularity is mildly enlarged. LINES/TUBES: Spinal stimulator leads project over the midthoracic spine. BONES: Osteoarthritis of the shoulders. Thoracic spondylosis. IMPRESSION: 1. Interstitial prominence slightly greater than on the most recentprior study which could reflect edema or interstitial infiltrate. Follow-up recommended. THIS IS AN ELECTRONICALLY VERIFIED FINAL REPORT 12/05/2024 2:23 PM - Electronically signed by Barbara Man M.D. TW: TW Report ID: [id number] Reading Location: [place] [address] Kenzie Jiménez MD IMG XR PROCEDURES Final Result * POCT glucose (12/05/2024 8:38 AM CDT) [facility] Glucose, POC 144 70 - 199 mg/dL Comment:Testing performed by : [facility], [address] [place] [address]., [address] Glucose comment 1 RN/MD Notified MARY JANE PHAM Comment:Testing performed by : [facility], [address] [place] [address]., [address] Blood 12/05/2024 8:38 AM CDT 12/05/2024 8:38 AM CDT Kenzie Jiménez MD LAB POCT ORDERABLES - DE VICE Final Result MARY JANE [address] [facility] Department [place] [address] * eGFR (12/05/2024 5:04 AM CDT) [facility] eGFR >90 >=60 mL/min/1. 73 m2 [...] last reviewed 2021. Testing performed by: [address] [address] Blood 12/05/2024 5:04 AM CDT 12/05/2024 5:24 AM CDT us Santos Wallace MD LAB BLOOD ORDERABLES Final Res ult MARY JANE PHAM [facility]9 [facility] Department [place] [address] * (ABNORMAL) CBC without differential (12/05/2024 5:04 AM CDT) WBC 11.17(H) 3.80 - 9.90 K/cumm Comment:Testing performed by : [address] [address] Hgb 12.2 11.9 - 15.5 g/dL MARY JANE PHAM Comment:Testing performed by : [address] [address] Hct 38.4 35.6 - 45.5 % MARY JANE PHAM Comment:Testing performed by : [address] [address] Plt 286 150 - 400 K/cumm MARY JANE PHAM Comment:Testing performed by : [address] [address] MPV 9.8 9.1 - 12.3 fL MARY JANE PHAM Comment:Testing performed by : [address] [address] RBC 4.27 3.90 - 5.20 M/cumm MARY JANE PHAM Comment:Testing performed by : [address] [address] MCV 89.9 81.3 - 96.4 fL MARY JANE PHAM Comment:Testing performed by : [address] [address] MCH 28.6 27.1 - 33.3 pg MARY JANE PHAM Comment:Testing performed by : [address] [address] MCHC 31.8(L) 32.3 - 35.7 g/dL MARY JANE PHAM Comment:Testing performed by : [address] [address] RDW CV 13.5 11.1 - 14.9 % MARY JANE PHAM Comment:Testing performed by : [address] [address] RDW SD 44.3 35.7 - 48.1 fL MARY JANE PHAM Comment:Testing performed by : [address] [address] NRBC abs 0.00 0.00 - 0.01 K/cumm MARY JANE PHAM Comment:Testing performed by : [address] [address] Blood 12/05/2024 5:04 AM CDT 12/05/2024 5:24 AM CDT us Santos Wallace MD LAB BLOOD ORDERABLES Final Res ult MARY JANE [address] [facility] Department [place] [address] * Basic metabolic panel (12/05/2024 5:04 AM CDT) Sodium 138 135 - 145 mmol/L Comment:Testing performed by : [address] [address] Potassium, pl 3.7 3.3 - 4.9 mmol/L MARY JANE PHAM Comment:Testing performed by : [address] [address] Chloride 101 97 - 110 mmol/L MARY JANE PHAM Comment:Testing performed by : [address] [address] CO2 25 22 - 32 mmol/L MARY JANE Comment:Testing performed by : [address] [address] Anion gap 12 2 - 15 mmol/L MARY JANE Comment:Testing performed by : [address] [address] BUN 20 6 - 25 mg/dL MARY JANE Comment:Testing performed by : [address] [address] Creatinine 0.71 0.60 - 1.10 mg/dL MARY JANE Comment:Testing performed by : [address] [address] Glucose 159 70 - 199 mg/dL MARY JANE Comment: [...] was last revised 2022. Testing performed by: [address] [address] Calcium 9.5 8.5 - 10.3 mg/dL MARY JANE Comment:Testing performed by : [address] [address] Blood 12/05/2024 5:04 AM CDT 12/05/2024 5:24 AM CDT us Santos Wallace MD LAB BLOOD ORDERABLES Final Res ult BCPUJA [address] [facility] Department of Laboratories [place], [place] [id number] * POCT glucose (12/04/2024 8:45 PM CDT) [facility] Signature Glucose, POC 147 70 - 199 mg/dL Comment:Testing performed by : [facility], [address] [place] [address]., [address] Blood 12/04/2024 8:45 PM CDT 12/04/2024 8:45 PM CDT Kenzie Jiménez MD LAB POCT ORDERABLES - DE VICE Final Result Performing Organization Address [facility] Co de Phone Number MARY JANE [address] [place] [address] * POCT glucose (12/04/2024 4:27 PM CDT) [facility] Signature Glucose, POC 153 70 - 199 mg/dL Comment:Testing performed by : [address] [address] Blood 12/04/2024 4:27 PM CDT 12/04/2024 4:27 PM CDT Kenzie Jiménez MD LAB POCT ORDERABLES - DE VICE Final Result Performing Organization Address [facility] Co ca Phone Number [address] [address] * NM Myocardial Amyloidosis Imaging Planar Limited (12/04/2024 3:39 PM CDT) Anatomical Region Laterality Modality N/A Nuclear Medicine 12/04/2024 3:57 PM CDT Narrative 12/04/2024 4:01 PM CDT EXAM DESCRIPTION: NM MYOCARDIAL AMYLOIDOSIS IMAGING PLANAR LIMITED REASON FOR STUDY: 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 TECHNIQUE: Following the administration of radiotracer, delayed planar imaging was obtained of the chest 1 hour following radiotracer administration. Regions of interest were drawn over the heart and the right lung with ratio comparisons made. Comparison made based upon ASNC guidelines. COMPARISON: None. FINDINGS: Heart to contralateral lung ratio is 1.1, normal less than 1.5. 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 IMPRESSION: Findings not consistent with ATTR. THIS IS AN ELECTRONICALLY VERIFIED FINAL REPORT 12/04/2024 4:01 PM - Electronically signed by Olinda Bernal M.D. 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 TECHNIQUE: Following the administration of radiotracer, delayed planarimaging was obtained of the chest 1 hour following radiotracer administration.Regions of interest were drawn over the heart and the right lung with ratio comparisons made. Comparison made based upon ASNC guidelines. COMPARISON: None. FINDINGS: Heart to contralateral lung ratio is 1.1, normal less than 1.5. 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 IMPRESSION: Findings not consistent with ATTR. THIS IS AN ELECTRONICALLY VERIFIED FINAL REPORT 12/04/2024 4:01 PM - Electronically signed by Olinda Bernal M.D. FT: FT Report ID: [id number] Reading Location: [place] [address] us Salinas Medina MD [facility] PROCEDURES Final Result * POCT glucose (12/04/2024 11:15 AM CDT) [facility] Signature Glucose, POC 91 70 - 199 mg/dL Comment:Testing performed by : [facility], [address] [place] [address]., [address] Blood 12/04/2024 11:1 5 AM CDT 12/04/2024 11:15 AM CDT Kenzie Jiménez MD LAB POCT ORDERABLES - DE VICE Final Result Performing Organization Address City/[facility]/ZIP Co de Phone Number [facility] [place] [address] * POCT glucose (12/04/2024 7:57 AM CDT) Glucose, POC 150 70 - 199 mg/dL Comment:Testing performed by : [facility], [address] [place] [address]., [address] Blood 12/04/2024 7:57 AM CDT 12/04/2024 7:57 AM CDT Kenzie Jiménez MD LAB POCT ORDERABLES - DE VICE Final Result Performing Organization Address [facility] Co de Phone Number [facility] [place] [address] * eGFR (12/04/2024 5:35 AM CDT) eGFR >90 >=60 mL/min/1. 73 [...] last reviewed 2021. Testing performed by: [address] [address] Blood 12/04/2024 5:35 AM CDT 12/04/2024 6:37 AM CDT Kenzie Jiménez MD LAB BLOOD ORDERABLES Fin al Result MARY JANE 45[address] [facility] Department [place] [address] * (ABNORMAL) Differential, auto (12/04/2024 5:35 AM CDT) Neutrophil abs 7.29(H) 1.50 - 6.50 K/cumm Comment:Testing performed by : [address] [address] Imm gran abs 0.06 0.00 - 0.10 K/cumm MARY JANE Comment:Testing performed by : [address] [address] Lymphocyte abs 2.56 0.80 - 3.30 K/cumm MARY JANE Comment:Testing performed by : [address] [address] Monocyte abs 0.75 0.20 - 0.80 K/cumm MARY JANE Comment:Testing performed by : [address] [address] Eosinophil abs 0.21 0.00 - 0.50 K/cumm MARY JANE Comment:Testing performed by : [address] [address] Basophil abs 0.03 0.00 - 0.10 K/cumm MARY JANE Comment:Testing performed by : [address] [address] Neutrophil pct 66.8 % MARY JANE Comment: Interpretive Data Percent cell count reference ranges are not reported, since discordance with absolute values may lead to misinterpretation of CBC data. Current Interpretive Data was last revised on 2017. Testing performed by: [address] [address] Imm gran pct 0.6 % MARY JANE Comment: Interpretive Data Percent cell count reference ranges are not reported, since discordance with absolute values may lead to misinterpretation of CBC data. Current Interpretive Data was last revised on 2017. Testing performed by: [address] [address] Lymphocyte pct 23.5 % [facility] Comment: Interpretive Data Percent cell count reference ranges are not reported, since discordance with absolute values may lead to misinterpretation of CBC data. Current Interpretive Data was last revised on 2017. Testing performed by: [address] [address] Monocyte pct 6.9 % [facility] Comment: Interpretive Data Percent cell count reference ranges are not reported, since discordance with absolute values may lead to misinterpretation of CBC data. Current Interpretive Data was last revised on 2017. Testing performed by: [address] [address] Eosinophil pct 1.9 % [facility] Comment: Interpretive Data Percent cell count reference ranges are not reported, since discordance with absolute values may lead to misinterpretation of CBC data. Current Interpretive Data was last revised on 2017. Testing performed by: [address] [address] Basophil pct 0.3 % [facility] Comment: Interpretive Data Percent cell count reference ranges are not reported, since discordance with absolute values may lead to misinterpretation of CBC data. Current Interpretive Data was last revised on 2017. Testing performed by: [address] [address] Blood 12/04/2024 5:35 AM CDT 12/04/2024 6:37 AM CDT us Kenzie Jiménez MD LAB BLOOD ORDERABLES Fin al Result MARY JANE 4[address] [facility] [place] [address] * (ABNORMAL) Immunoglobulin free light chains (12/04/2024 5:35 AM CDT) Pathologist [facility] [place]/Lambda ratio [facility] 1.26 0.26 - 1.65 Comment: Interpretive Data The Binding Site FreeLite assay procedure was used. Results from different manufacturers or methods may not be comparable. Serial testing should be performed using the same methods and instrumentation. Current Interpretive Data was last revised on 2023. Testing performed by: [facility], [address] [place]., [address] [place] free light chain [facility] 3.37(H) 0.33 - 1.94 mg/dL MARY JANE PHAM Comment: Interpretive Data The Binding Site FreeLite assay procedure was used. Results from different manufacturers or methods may not be comparable. Serial testing should be performed using the same methods and instrumentation. Current Interpretive Data was last revised on 2023. Testing performed by: [facility], [address] [place]., [address] Lambda free light chain [facility] 2.67(H) 0.57 - 2.63 mg/dL MARY JANE PHAM Comment: Interpretive Data The Binding Site FreeLite assay procedure was used. Results from different manufacturers or methods may not be comparable. Serial testing should be performed using the same methods and instrumentation. Current Interpretive Data was last revised on 2023. Testing performed by: [facility], [address] [place]., [address] Blood 12/04/2024 5:35 AM CDT 12/04/2024 9:21 AM CDT Salinas Mdeina MD LAB BLOOD ORDERABLES nal Result MARY JANE PHAM 3054 [facility] Department [place] [address] * (ABNORMAL) CBC with auto differential (12/04/2024 5:35 AM CDT) WBC 10.90(H) 3.80 - 9.90 K/cumm Comment:Testing performed by : [facility], [address] [place] [address]., [address] Hgb 12.0 11.9 - 15.5 g/dL MARY JANE PHAM Comment:Testing performed by : [address], [address] Hct 38.0 35.6 - 45.5 % MARY JANE Comment:Testing performed by : [address] [address] Plt 258 150 - 400 K/cumm MARY JANE Comment:Testing performed by : [address], [address] MPV 10.1 9.1 - 12.3 fL MARY JANE Comment:Testing performed by : [address], [address] RBC 4.18 3.90 - 5.20 M/cumm MARY JANE Comment:Testing performed by : [address], [address] MCV 90.9 81.3 - 96.4 fL MARY JANE Comment:Testing performed by : [address], [address] MCH 28.7 27.1 - 33.3 pg MARY JANE Comment:Testing performed by : [address], [address] MCHC 31.6(L) 32.3 - 35.7 g/dL MARY JANE Comment:Testing performed by : [address], [address] RDW CV 13.5 11.1 - 14.9 % MARY JANE Comment:Testing performed by : [address], [address] RDW SD 45.0 35.7 - 48.1 fL MARY JANE Comment:Testing performed by : [address], [address] NRBC abs 0.00 0.00 - 0.01 K/cumm MARY JANE Comment:Testing performed by : [address], [address] Blood 12/04/2024 5:35 AM CDT 12/04/2024 6:37 AM CDT us Kenzie Jiménez MD LAB BLOOD ORDERABLES Fin al Result Performing Organization Address City/[facility] Co de Phone Number [address] [place] [address] * Magnesium (12/04/2024 5:35 AM CDT) Magnesium 1.7 1.4 - 2.5 mg/dL Comment:Testing performed by : [address] [address] Blood 12/04/2024 5:35 AM CDT 12/04/2024 6:37 AM CDT Kenzie Jiménez MD LAB BLOOD ORDERABLES Fin al Result Performing Organization Address [facility] de Phone Number [address] [address] * (ABNORMAL) Hemoglobin A1c (12/04/2024 5:35 AM CDT) Hgb A1C 9.7(H) 4.0 - 5.6 % Comment:Testing performed by : [address] [address] Estimated Average Glucose 232 mg/dL [facility] Comment: The ADA recommends reporting an estimated Average Glucose (eAG) with all Hemoglobin A1c results using the equation derived from a study of 507 normal and diabetic adults. Minority populations were underrepresented and children were not included. (Diabetes Care 31:1345-5038, 2008). The eAG is not equivalent to a fasting glucose. Testing performed by: [address] [address] Blood 12/04/2024 5:35 AM CDT 12/04/2024 6:39 AM CDT us Salinas Medina MD LAB BLOOD ORDERABLES Fi nal Result Performing Organization Address [facility] Co de Phone Number [address] [place] [address] * Lipid panel (12/04/2024 5:35 AM CDT) Cholesterol 176 30 - 199 mg/dL [...] revised on 2017. Testing performed by: [address] [address] Triglycerides 140 <=149 mg/dL MARYJ ANE Comment: Interpretive Data Ages < or = [...] Pediatrics 2011;128:S213 2. NCEP Expert Panel. Circulation 2003;110:227 Current Interpretive Data was last revised on 2017. Testing performed by: [address] [address] HDL 43 >=40 mg/dL MARY JANE Comment: Interpretive Data [...] revised on 2017. Testing performed by: [address] [address] LDL, calculated 108 <=129 mg/dL MARY JANE [...] Interpretive Data was last revised on 2023. Testing performed by: [address] [address] Non-HDL Cholesterol 133 mg/dL MARY JANE Comment: Interpretive Data Ages [...] revised on 2017. Testing performed by: [address] [address] Chol/HDL ratio 4 MARY JANE Comment:Testing performed by : [address] [address] Blood 12/04/2024 5:35 AM CDT 12/04/2024 6:37 AM CDT Salinas Medina MD LAB BLOOD ORDERABLES Fi nal Result MARY JANE 4500 [facility] Department [place] [address] * (ABNORMAL) Comprehensive metabolic panel (12/04/2024 5:35 AM CDT) Sodium 136 135 - 145 mmol/L Comment:Testing performed by : [address] [address] Potassium, pl 3.9 3.3 - 4.9 mmol/L MARY JANE Comment:Testing performed by : [address] [address] Chloride 99 97 - 110 mmol/L MARY JANE Comment:Testing performed by : [address] [address] CO2 26 22 - 32 mmol/L MARY JANE Comment:Testing performed by : [address] [address] Anion gap 11 2 - 15 mmol/L MARY JANE Comment:Testing performed by : [address] [address] BUN 17 6 - 25 mg/dL MARY JANE Comment:Testing performed by : [address] [address] Creatinine 0.69 0.60 - 1.10 mg/dL MARY JANE Comment:Testing performed by : [address] [address] Glucose 149 70 - 199 mg/dL MARY JANE Comment: [...] was last revised 2022. Testing performed by: [address] [address] Calcium 9.5 8.5 - 10.3 mg/dL MARY JANE Comment:Testing performed by : [address] [address] Bilirubin, total 0.8 0.1 - 1.2 mg/dL MARY JANE Comment:Testing performed by : [address] [address] Protein, pl 6.8 6.5 - 8.5 g/dL MARY JANE Comment:Testing performed by : [address], [place]., [address] Albumin 3.3(L) 3.5 - 5.0 g/dL MARY JANE Comment:Testing performed by : [address] [address] Alk phos 64 40 - 130 Units/L MARY JANE Comment:Testing performed by : [address] [address] ALT 17 7 - 45 Units/L MARY JANE Comment:Testing performed by : [address] [address] AST 15 10 - 45 Units/L MARY JANE Comment:Testing performed by : [address] [address] Blood 12/04/2024 5:35 AM CDT 12/04/2024 6:37 AM CDT Kenzie Jiménez MD LAB BLOOD ORDERABLES Fin al Result [facility] [address] [facility] Department [place] [address] * POCT glucose (12/03/2024 9:20 PM CDT) [facility] Signature Glucose, POC 105 70 - 199 mg/dL Comment:Testing performed by : [address] [address] Blood 12/03/2024 9:20 PM CDT 12/03/2024 9:20 PM CDT us Kenzie Jiménez MD LAB POCT ORDERABLES - DE VICE Final Result Performing Organization Address [facility] Co de Phone Number MARY JANE [address] [place] [address] * POCT glucose (12/03/2024 4:42 PM CDT) Glucose, POC 145 70 - 199 mg/dL Comment:Testing performed by : [address] [address] Glucose comment 1 Will Repeat Test MARY JANE Comment:Testing performed by : [address] [address] Glucose comment 2 RN/MD Notified MARY JANE Comment:Testing performed by : [address] [address] Blood 12/03/2024 4:42 PM CDT 12/03/2024 4:42 PM CDT us Kenzie Jiménez MD LAB POCT ORDERABLES - DE VICE Final Result Performing Organization Address [facility] Co de Phone Number MARY JANE [address] [place] [address] * POCT glucose (12/03/2024 12:25 PM CDT) Glucose, POC 199 70 - 199 mg/dL Comment:Testing performed by : [address] [address] Glucose comment 1 Will Repeat Test MARY JANE Comment:Testing performed by : [address] [address] Glucose comment 2 RN/MD Notified MARY JANE Comment:Testing performed by : [address] [address] Blood 12/03/2024 12:2 5 PM CDT 12/03/2024 12:25 PM CDT us Kenzie Jiménez MD LAB POCT ORDERABLES - DE VICE Final Result MARY JANE [facility] Department of Laboratories [place] [id number] * TRANSTHORACIC ECHO (TTE) COMPLETE W DOPPLER/CF W CONTRAST (12/03/2024 12:06 PM CDT) Estimated EF 60-65 % CONS SCIMAGE EF Mod BP 57 % CONS SCIMAGE Anatomical Region Laterality Modality Ultrasound 12/03/2024 11:2 4 AM CDT Narrative 12/03/2024 1:14 PM CDT Transthoracic Echocardiographic Report Patient Name: MOHSEN MARQUES M : 1955 (69y 6m) Gender: F Study Date: 12/03/2024 11:24:58 AM Ht(Inch): 61 Wt(Lb): 275.99 BSA: 2.32 Gathering Machine Setter: Coni Vee RDCS Location: [id number] Order Provider: PATRICK RICE Heart Rate: 76 BMI: 52.14 BP: 130 / 79 Ref Provider: PATRICK RICE PROCEDURES: Echocardiographic Report: ([id number]) Transthoracic complete echo with contrast, 2D, spectral and tissue Doppler, color flow Doppler, M-mode. Contrast: A contrast injection of Definity was performed to improve assessment of LV function. Definity Lot Number: [id number]. Technically difficult study due to: Technically difficult study due to body habitus. INDICATIONS: Dyspnea. FINDINGS: Left Ventricle: Normal left ventricular size based on volume index. Mild concentric left ventricular hypertrophy. Normal left ventricular systolic function. The Ejection Fraction (Christensen's) is measured at 57 %. The Ejection Fraction is visually estimated to be 60-65 %. Diastolic Function E to A reversal Suggestive of abnormal relaxation during early diastole, E to E' ratio is >15 suggesting a high pulmonary wedge pressure and LV diastolic dysfunction and left ventricular diastolic parameters are consistent with Grade I diastolic dysfunction (normal LA pressure). Right Ventricle: Normal right ventricular size. Normal right ventricular systolic function. Left Atrium: The left atrium is normal in size. Right Atrium: The right atrium is normal in size. Atrial Septum: The interatrial septum is normal in appearance. Mitral Valve: Moderate mitral annular calcification. There is trace mitral valve regurgitation. No mitral valve stenosis. There is no evidence of mitral valve prolapse. Aortic Valve: Trileaflet aortic valve. Aortic cusps appear moderately calcified. No aortic regurgitation seen. Mild aortic valve stenosis. The mean transaortic gradient is 16 mmHg. Tricuspid Valve: There is mild tricuspid regurgitation. The estimated pulmonary artery systolic pressure is 31 mmHg. Normal estimated pulmonary artery systolic pressure. No tricuspid valve stenosis. Pulmonic Valve: There is trace pulmonic regurgitation. No stenosis present. Pericardium: No pericardial effusion. Aorta: Normal aortic root. IVC: IVC Collapses normally with inspiration. CONCLUSIONS: 1. Normal left ventricular size based on volume index. Mild concentric left ventricular hypertrophy. Normal left ventricular systolic function. The Ejection Fraction (Christensen's) is measured at 57 %. The Ejection Fraction is visually estimated to be 60-65 %. Diastolic Function E to A reversal Suggestive of abnormal relaxation during early diastole, E to E' ratio is >15 suggesting a high pulmonary wedge pressure and LV diastolic dysfunction and left ventricular diastolic parameters are consistent with Grade I diastolic dysfunction (normal LA pressure). 2. Normal right ventricular size. Normal right ventricular systolic function. 3. The left atrium is normal in size. 4. Trileaflet aortic valve. Aortic cusps appear moderately calcified. Mild aortic valve stenosis. 5. There is mild tricuspid regurgitation. Normal estimated pulmonary artery systolic pressure. MEASUREMENTS: 2D/MM Value Range Doppler Value LVIDd 2D 4.50 cm [ 3.50 - 5.70 ] AV Peak Singh 2.68 m/s LVIDs 2D 3.00 cm [ 3.10 - 4.60 ] AV Peak PG 28.73 mmHg IVSd 2D 1.20 cm [ 0.60 - 1.20 ] AV Mean PG 16.00 mmHg LVPWd 2D 1.30 cm [ 0.60 - 1.10 ] AV VTI 53.90 cm LV Thickness Ratio 0.92 LVOT Peak Singh 1.36 m/s LV Mass 2D 213.08 g LVOT Peak PG 7.40 mmHg LV Mass Index 2D 91.84 g/m2 LVOT Mean PG 4.00 mmHg RWT 0.58 LVOT VTI 25.80 cm EDV Mod BP 82.90 ml [ 46.00 - 106.00 ] LVOT Diam 2.10 cm LV EDV Index 35.73 ml/m2 SV LVOT 89.00 cm3 ESV Mod BP 35.70 ml [ 14.00 - 42.00 ] ELVIA VTI 1.66 cm2 EF Mod BP 57 % [ 54 - 74 ] ELVIA Vmax 1.76 cm2 Visually Estimated EF 60-65 % LVOT/AV VTI 0.48 - Dimensionless index (DVI) LA Dimension 2D 3.80 cm [ 1.90 - 4.00 ] MV E Peak Singh 1.19 m/s LA Length 2C 5.19 cm MV A Peak Singh 1.36 m/s LA Length 4C 5.56 cm MV A Dur 103.00 msec LA Volume BP 41.30 ml MV E/A 0.90 ratio LA Volume Index 17.80 ml/m2 [ 16.00 - 34.00 ] MV Decel Time 246.00 msec RV Base Dimen 2D 4.3 cm [ 2.5 - 4.2 ] Med E` Singh 0.05 m/s RV Mid Dimen 2D 3.5 cm Lat E` Singh 0.06 m/s RV Length Dimen 2D 6.4 cm Average E/E` 2163.64 TAPSE 2.26 cm [ 1.71 - 5.00 ] TV Peak Singh 0.53 m/s RA Volume 50.10 ml TV Peak PG 1.12 mmHg RA Volume Index 21.59 ml/m2 RV S` 0.10 m/s AoR Diam 2D 3.00 cm [ 2.00 - 3.70 ] TR Peak Singh 2.38 m/s Ao Root Index 1.29 cm/m2 [ 1.00 - 2.00 ] TR Peak PG 22.7 mmHg Asc Ao Diam 2D 3.60 cm PV Peak Singh 1.09 m/s Asc Ao Index 1.55 cm/m2 PV Peak PG 4.75 mmHg PV Mean PG 3.00 mmHg RVOT VTI 19.50 - ATTESTATION: I have reviewed and interpreted the pertinent images and measurements of this study. I attest to the conclusions in the final report that is provided above. DISCLAIMER: The study images and the final report will be retained in the patient chart by the Echo Laboratory for the legally required time period. This chart constitutes the legal record of any testing performed. Electronically Signed By: Wero Aceves MD 12/03/2024 1:14:27 PM CDT Procedure Note Wero Aceves MD - 12/03/2024 Transthoracic Echocardiographic Report Patient Name: MOHSEN MARQUES M : 1955 (69y 6m) Gender: F Study Date: 12/03/2024 11:24:58 AM Ht(Inch): 61 Wt(Lb): 275.99 BSA: 2.32 Gathering Machine Setter: Coni Vee RDCS Location: [id number] Order Provider:PATRICK RICE Heart Rate: 76 BMI: 52.14 BP: 130 / 79 Ref Provider: PATRICK RICE PROCEDURES: Echocardiographic Report: ([id number]) Transthoracic complete echo withcontrast, 2D, spectral and tissue Doppler, color flow Doppler, M-mode. Contrast: A contrast injection of Definity was performed to improveassessment of LV function. Definity Lot Number: [id number]. Technically difficult study due to: Technically difficult study due tobody habitus. INDICATIONS: Dyspnea. FINDINGS: Left Ventricle: Normal left ventricular size based on volume index. Mildconcentric left ventricular hypertrophy. Normal left ventricular systolic function. TheEjection Fraction (Christensen's) is measured at 57 %. The Ejection Fraction is visuallyestimated to be 60-65 %. Diastolic Function E to A reversal Suggestive of abnormal relaxationduring early diastole, E to E' ratio is >15 suggesting a high pulmonary wedge pressureand LV diastolic dysfunction and left ventricular diastolic parameters areconsistent with Grade I diastolic dysfunction (normal LA pressure). Right Ventricle: Normal right ventricular size. Normal right ventricularsystolic function. Left Atrium: The left atrium is normal in size. Right Atrium: The right atrium is normal in size. Atrial Septum: The interatrial septum is normal in appearance. Mitral Valve: Moderate mitral annular calcification. There is trace mitralvalve regurgitation. No mitral valve stenosis. There is no evidence of mitralvalve prolapse. Aortic Valve: Trileaflet aortic valve. Aortic cusps appear moderatelycalcified. No aortic regurgitation seen. Mild aortic valve stenosis. The meantransaortic gradient is 16 mmHg. Tricuspid Valve: There is mild tricuspid regurgitation. The estimatedpulmonary artery systolic pressure is 31 mmHg. Normal estimated pulmonary artery systolicpressure. No tricuspid valve stenosis. Pulmonic Valve: There is trace pulmonic regurgitation. No stenosispresent. Pericardium: No pericardial effusion. Aorta: Normal aortic root. IVC: IVC Collapses normally with inspiration. CONCLUSIONS: 1. Normal left ventricular size based on volume index. Mild concentricleft ventricular hypertrophy. Normal left ventricular systolic function. The EjectionFraction (Christensen's) is measured at 57 %. The Ejection Fraction is visually estimated to be60-65 %. Diastolic Function E to A reversal Suggestive of abnormal relaxation during earlydiastole, E to E' ratio is >15 suggesting a high pulmonary wedge pressure and LV diastolicdysfunction and left ventricular diastolic parameters are consistent with Grade Idiastolic dysfunction (normal LA pressure). 2. Normal right ventricular size. Normal right ventricular systolicfunction. 3. The left atrium is normal in size. 4. Trileaflet aortic valve. Aortic cusps appear moderately calcified. Mildaortic valve stenosis. 5. There is mild tricuspid regurgitation. Normal estimated pulmonaryartery systolic pressure. MEASUREMENTS: 2D/MM Value Range DopplerValue LVIDd 2D 4.50 cm [ 3.50 - 5.70 ] AV Peak Vel2.68 m/s LVIDs 2D 3.00 cm [ 3.10 - 4.60 ] AV Peak PG28.73 mmHg IVSd 2D 1.20 cm [ 0.60 - 1.20 ] AV Mean PG16.00 mmHg LVPWd 2D 1.30 cm [ 0.60 - 1.10 ] AV VTI53.90 cm LV Thickness Ratio 0.92 LVOT PeakVel 1.36 m/s LV Mass 2D 213.08 g LVOT Peak PG7.40 mmHg LV Mass Index 2D 91.84 g/m2 LVOT Mean PG4.00 mmHg RWT 0.58 LVOT VTI25.80 cm EDV Mod BP 82.90 ml [ 46.00 - 106.00 ] LVOT Diam2.10 cm LV EDV Index 35.73 ml/m2 SV LVOT89.00 cm3 ESV Mod BP 35.70 ml [ 14.00 - 42.00 ] ELVIA VTI1.66 cm2 EF Mod BP 57 % [ 54 - 74 ] ELVIA Vmax1.76 cm2 Visually Estimated EF 60-65 % LVOT/AV VTI0.48 - Dimensionless index (DVI) LA Dimension 2D 3.80 cm [ 1.90 - 4.00 ] MV E PeakVel 1.19 m/s LA Length 2C 5.19 cm MV A PeakVel 1.36 m/s LA Length 4C 5.56 cm MV A Qfd420.00 msec LA Volume BP 41.30 ml MV E/A0.90 ratio LA Volume Index 17.80 ml/m2 [ 16.00 - 34.00 ] MV DecelTime 246.00 msec RV Base Dimen 2D 4.3 cm [ 2.5 - 4.2 ] Med E` Vel0.05 m/s RV Mid Dimen 2D 3.5 cm Lat E` Vel0.06 m/s RV Length Dimen 2D 6.4 cm Average E/E`2163.64 TAPSE 2.26 cm [ 1.71 - 5.00 ] TV Peak Vel0.53 m/s RA Volume 50.10 ml TV Peak PG1.12 mmHg RA Volume Index 21.59 ml/m2 RV S`0.10 m/s AoR Diam 2D 3.00 cm [ 2.00 - 3.70 ] TR Peak Vel2.38 m/s Ao Root Index 1.29 cm/m2 [ 1.00 - 2.00 ] TR Peak PG22.7 mmHg Asc Ao Diam 2D 3.60 cm PV Peak Vel1.09 m/s Asc Ao Index 1.55 cm/m2 PV Peak PG4.75 mmHg PV Mean PG 3.00 mmHg RVOT VTI 19.50 - ATTESTATION: I have reviewed and interpreted the pertinent images and measurements ofthis study. I attest to the conclusions in the final report that is provided above. DISCLAIMER: The study images and the final report will be retained in the patientchart by the Echo Laboratory for the legally required time period. This chart constitutesthe legal record of any testing performed. Electronically Signed By: Wero Aceves MD 12/03/2024 1:14:27 PM CDT us Patrick Rice DO CV ECHO PROCEDURES Final Re sult * POCT glucose (12/03/2024 8:13 AM CDT) [facility] Glucose, POC 159 70 - 199 mg/dL Comment:Testing performed by : [address] [address] Glucose comment 1 Will Repeat Test MARY JANE Comment:Testing performed by : [address] [address] Glucose comment 2 RN/MD Notified MARY JANE PHAM Comment:Testing performed by : [address] [address] Blood 12/03/2024 8:13 AM CDT 12/03/2024 8:13 AM CDT us Kenzie Jiménez MD LAB POCT ORDERABLES - DE VICE Final Result MARY JANE PHAM 276[address] [facility] Department [place] [address] * eGFR (12/03/2024 5:13 AM CDT) eGFR >90 >=60 mL/min/1. 73 [...] last reviewed 2021. Testing performed by: [address] [address] Blood 12/03/2024 5:13 AM CDT 12/03/2024 5:37 AM CDT us Santos Wallace MD LAB BLOOD ORDERABLES Final Res ult MARY JANE 4[address] [facility] Department [place] [address] * (ABNORMAL) CBC without differential (12/03/2024 5:13 AM CDT) Pathologist [facility] WBC 10.70(H) 3.80 - 9.90 K/cumm Comment:Testing performed by : [address] [address] Hgb 12.1 11.9 - 15.5 g/dL MARY JANE PHAM Comment:Testing performed by : [address] [address] Hct 37.8 35.6 - 45.5 % MARY JANE PHAM Comment:Testing performed by : [address] [address] Plt 258 150 - 400 K/cumm MARY JANE PHAM Comment:Testing performed by : [address] [address] MPV 9.8 9.1 - 12.3 fL MARY JANE PHAM Comment:Testing performed by : [address] [address] RBC 4.15 3.90 - 5.20 M/cumm MARY JANE PHAM Comment:Testing performed by : [address], [address] MCV 91.1 81.3 - 96.4 fL MARY JANE Comment:Testing performed by : [address], [address] MCH 29.2 27.1 - 33.3 pg MARY JANE Comment:Testing performed by : [address] [address] MCHC 32.0(L) 32.3 - 35.7 g/dL MARY JANE Comment:Testing performed by : [address], [address] RDW CV 13.7 11.1 - 14.9 % MARY JANE Comment:Testing performed by : [address], [address] RDW SD 45.7 35.7 - 48.1 fL MARY JANE Comment:Testing performed by : [address], [address] NRBC abs 0.00 0.00 - 0.01 K/cumm MARY JANE Comment:Testing performed by : [address] [address] Blood 12/03/2024 5:13 AM CDT 12/03/2024 5:42 AM CDT us Santos Wallace MD LAB BLOOD ORDERABLES Final Res ult MARY JANE 5[address] [facility] Department [place] [address] * Basic metabolic panel (12/03/2024 5:13 AM CDT) Sodium 139 135 - 145 mmol/L Comment:Testing performed by : [facility], [address] [place] [address]., [address] Potassium, pl 3.8 3.3 - 4.9 mmol/L MARY JANE Comment:Testing performed by : [address], [place]., [address] Chloride 101 97 - 110 mmol/L MARY JANE Comment:Testing performed by : [address], [place]., [address] CO2 27 22 - 32 mmol/L MARY JANE Comment:Testing performed by : [address], [place]., [address] Anion gap 11 2 - 15 mmol/L MARY JANE Comment:Testing performed by : [address], [place]., [address] BUN 16 6 - 25 mg/dL [facility] Comment:Testing performed by : [address], [place]., [address] Creatinine 0.70 0.60 - 1.10 mg/dL [facility] Comment:Testing performed by : [address], [place]., [address] Glucose 170 70 - 199 mg/dL [facility] Comment: Interpretive Data Fasting glucose >/= [...] was last revised 2022. Testing performed by: [address] [address] Calcium 9.5 8.5 - 10.3 mg/dL MARY JANE Comment:Testing performed by : [address], [place]., [address] Blood 12/03/2024 5:13 AM CDT 12/03/2024 5:37 AM CDT us Santos Wallace MD LAB BLOOD ORDERABLES Final Res ult Performing Organization Address City/[facility]/ZIP Co de Phone Number [facility] [place] [address] * POCT glucose (12/02/2024 11:12 PM CDT) [facility] Glucose, POC 108 70 - 199 mg/dL Comment:Testing performed by : [address] [address] Glucose comment 1 RN/MD Notified MARY JANE Comment:Testing performed by : [address] [address] Blood 12/02/2024 11:1 2 PM CDT 12/02/2024 11:12 PM CDT us Santos Wallace MD LAB POCT ORDERABLES - DEVICE F inal Result Performing Organization Address [facility] Co de Phone Number MARY JANE [facility] [place] [address] * (ABNORMAL) Troponin T high-sensitivity 6-hour (12/02/2024 10:06 PM CDT) [facility] Trop T hs 24(H) <=14 ng/L Comment: Interpretive Data For further hscTnT resources including the diagnostic algorithm and an aid in interpretation, copy and paste this link: https://nrl.testcatalog.org/show/hsTrop Current Interpretive Data last revised 2020. Testing performed by: [address] [address] Trop T hs delta -1 ng/L MARY JANE PHAM Comment:Testing performed by : [address] [address] Trop T hs interp Insignificant MARY JANE PHAM Comment:Testing performed by : [address] [address] Blood 12/02/2024 10:0 6 PM CDT 12/02/2024 10:08 PM CDT Gil Diez DO LAB BLOOD ORDERABLES Final Result Performing Organization Address City/[facility] Co de Phone Number MARY JANE [address] [place] [address] * POCT glucose (12/02/2024 10:03 PM CDT) Pathologist [facility] Glucose, POC 110 70 - 199 mg/dL Comment:Testing performed by : [address] [address] Blood 12/02/2024 10:0 3 PM CDT 12/02/2024 10:03 PM CDT Santos Wallace MD LAB POCT ORDERABLES - DEVICE F inal Result Performing Organization Address [facility] de Phone Number MARY JANE [address] [address] * (ABNORMAL) Troponin T high-sensitivity 4-hour (12/02/2024 8:26 PM CDT) Pathologist [facility] Trop T hs 22(H) <=14 ng/L Comment: Interpretive Data For further hscTnT resources including the diagnostic algorithm and an aid in interpretation, copy and paste this link: https://nrl.testcatalog.org/show/hsTrop Current Interpretive Data last revised 2020. Testing performed by: [address] [address] Trop T hs delta -3 ng/L MARY JANE Comment:Testing performed by : [address] [address] Trop T hs interp Insignificant MARY JANE Comment:Testing performed by : [address] [address] Blood 12/02/2024 8:26 PM CDT 12/02/2024 8:31 PM CDT us Gil Larsoneg DO LAB BLOOD ORDERABLES Final Result MARY JANE [address] [facility] Department [place] [address] * CT Chest PE (CTA) W Contrast (12/02/2024 7:44 PM CDT) Anatomical Region Laterality Modality Body N/A Computed Tomogra phy 12/02/2024 8:08 PM CDT Narrative 12/02/2024 8:26 PM CDT EXAM DESCRIPTION: CT CHEST PE (CTA) W CONTRAST REASON FOR STUDY: Shortness of breath and swelling in the legs. Recently diagnosed with CHF. TECHNIQUE: CT angiogram of the chest performed [...] INTRAVENOUS SYRINGE injected via intravenous COMPARISON: CT chest 07/01/2024 , CT chest, abdomen, pelvis 02/09/2022 FINDINGS: VASCULATURE: No identified pulmonary emboli. LUNGS: Expiratory phase of exam. Mild dependent atelectasis. Adjacent 5 mm nodules in the medial left lower lobe (image 60) are unchanged from 2022. Noncalcified 4 mm nodule in the medial left lower lobe (image 61) is unchanged from 2022. Small right posterolateral tracheal diverticulum. PLEURAE: No pleural effusion. No pneumothorax. MEDIASTINUM/SHALA: No mediastinal or hilar lymphadenopathy. Low-attenuation 1.6 cm right thyroid nodule with calcification noted. According to the White Paper of the ACR Incidental Thyroid Findings Committee, incidentally detected thyroid nodules in patients 35 years, further evaluation with thyroid ultrasound if the nodule is 1.5 cm, without suspicious imaging features, and the patient has normal life expectancy. Small hiatal hernia. HEART: Heart size is normal with no pericardial effusion. Calcification the mitral annulus. AXILLAE: No lymphadenopathy. CHEST WALL: No masses. No subcutaneous air. HARDWARE/LINES/TUBES: Spinal column stimulator lead noted terminating in the midthoracic spinal canal. UPPER ABDOMEN: Prior cholecystectomy. Right renal cyst requires no specific follow-up. MUSCULOSKELETAL: Moderate thoracic spondylosis. OTHER: No significant abnormality. IMPRESSION: 1. No pulmonary embolism. 2. Expiratory phase of exam with mild dependent atelectasis. 3. Low-attenuation 1.6 cm right thyroid nodule with calcification. See above. THIS IS AN ELECTRONICALLY VERIFIED FINAL REPORT 12/02/2024 8:26 PM - Electronically signed by Perfecto Arguello M.D. LB: LB Report ID: [id number] Reading Location: [place] [address] Procedure Note Perfecto Arguello MD - 12/02/2024 EXAM DESCRIPTION: CT CHEST PE (CTA) W CONTRAST REASON FOR STUDY: Shortness of breath and swelling in the legs.Recently diagnosed with CHF. TECHNIQUE: CT angiogram of the chest performed [...] IODINE/ML INTRAVENOUSSYRINGE injected via intravenous COMPARISON: CT chest 07/01/2024 , CT chest, abdomen, pelvis 02/09/2022 FINDINGS: VASCULATURE: No identified pulmonary emboli. LUNGS: Expiratory phase of exam. Mild dependent atelectasis. Adjacent5 mm nodules in the medial left lower lobe (image 60) are unchanged from 202. Noncalcified 4 mm nodule in the medial left lower lobe (image 61) isunchanged from 202. Small right posterolateral tracheal diverticulum. PLEURAE: No pleural effusion. No pneumothorax. MEDIASTINUM/SHALA: No mediastinal or hilar lymphadenopathy.Low-attenuation 1.6 cm right thyroid nodule with calcification noted. According to theWhite Paper of the ACR Incidental Thyroid Findings Committee, incidentallydetected thyroid nodules in patients 35 years, further evaluation with thyroid ultrasound if the nodule is 1.5 cm, without suspicious imaging features,and the patient has normal life expectancy. Small hiatal hernia. HEART: Heart size is normal with no pericardial effusion.Calcification the mitral annulus. AXILLAE: No lymphadenopathy. CHEST WALL: No masses. No subcutaneous air. HARDWARE/LINES/TUBES: Spinal column stimulator lead noted terminating inthe midthoracic spinal canal. UPPER ABDOMEN: Prior cholecystectomy. Right renal cyst requires nospecific follow-up. MUSCULOSKELETAL: Moderate thoracic spondylosis. OTHER: No significant abnormality. IMPRESSION: 1. No pulmonary embolism. 2. Expiratory phase of exam with mild dependent atelectasis. 3. Low-attenuation 1.6 cm right thyroid nodule with calcification. See above. THIS IS AN ELECTRONICALLY VERIFIED FINAL REPORT 12/02/2024 8:26 PM - Electronically signed by Perfecto Arguello M.D. LB: TAYLOR Report ID: [id number] Reading Location: [place] [address] Patrick Rice DO IMG CT PROCEDURES Final Res ult * Sepsis Lactate w/ Reflex (12/02/2024 6:19 PM CDT) [facility] Sepsis Lactate 1.2 0.7 - 2.0 mmol/L Comment:Testing performed by : [address] [address] Blood 12/02/2024 6:19 PM CDT 12/02/2024 6:22 PM CDT Patrick Rice DO LAB BLOOD ORDERABLES Final Result MARY JANE [address] [facility] Department [place] [address] * (ABNORMAL) Urinalysis reflex to microscopic and culture Urine (12/02/2024 6:19 PM CDT) Pathologist [facility] Color, ur Yellow Yellow Comment:Testing performed by : [address] [address] Clarity, ur Clear Clear MARY JANE Comment:Testing performed by : [address] [address] Specific gravity, ur 1.019 1.003 - 1.030 MARY JANE Comment:Testing performed by : [facility], [address] [place] [address], [place]., [address] pH, urine 7.0 MARY JANE Comment: Interpretive Data U rine pH is affected by diet, medications, systemic acid-base disturbances, and renal tubular function. pH may affect urinary stone formation. For example, urine pH below 6.0 may help reduce the tendency for calcium phosphate stones and pH greater than 6.0 may reduce the tendency for uric acid stone formation. Source: [facility] [employer] Current Interpretive Data was last revised on 2017 Testing performed by: [facility], [address] [place] [address], [place]., [address] Protein, ur ql Negative Negative MARY JANE Comment:Testing performed by : [address], [place]., [address] Glucose, ur ql 4+(A) Negative MARY JANE Comment:Testing performed by : [address], [place]., [address] Ketones, ur Negative Negative MARY JANE Comment:Testing performed by : [address], [place]., [address] Bilirubin, ur Negative Negative MARY JANE Comment:Testing performed by : [address], [place]., [address] Blood, ur Negative Negative MARY JANE Comment:Testing performed by : [address], [place]., [address] Urobilinogen, ur <2.0 <2.0 mg/dL MARY JANE Comment:Testing performed by : [address] [address] Nitrite, ur Negative Negative MARY JANE Comment:Testing performed by : [address], [place]., [address] Leukocyte esterase, ur Negative Negative MARY JANE Comment:Testing performed by : [address], [place]., [address] UA reflex comment Reflex conditions for microscopic UA and culture not met. MARY JANE Comment:Testing performed by : [address], [place]., [address] Urine 12/02/2024 6:19 PM CDT 12/02/2024 6:22 PM CDT Patrick Rice LAB MICROBIOLOGY - GENERAL ORDERABLES Final Result MARY JANE [address] [facility] Department [place] [address] * (ABNORMAL) Drugs of Abuse Screen, Urine without Confirmation (12/02/2024 6:19 PM CDT) Amphetamine, ur Not Detected CutOff 500ng/mL Comment: Interpretive Data - Amphetamines: Samples containing greater than 500 ng/mL d-methamphetamine or other cross-reacting amphetamine compounds are reported as positive. Amphetamine immunoassays are subject to significant false positive rates due to cross-reactivity of non-amphetamine drugs. Confirmatory testing required for definitive results. Current Interpretive Data was last reviewed 2022. Testing performed by: [address] [address] Barbiturates, ur Not Detected CutOff 200ng/mL MARY JANE Comment: Interpretive Data - Barbiturates: Samples containing greater than 200 ng/mL secobarbital or other cross-reacting barbiturate compounds are reported as positive. False positive and false negative results are possible. Confirmatory testing required for definitive results. Current Interpretive Data was last reviewed 2022. Testing performed by: [address] [address] Benzodiazepines, ur Not Detected CutOff 100ng/mL MARY JANE Comment: Interpretive Data - Benzodiazepines: Samples containing greater than 100 ng/mL nordiazepam or other cross-reacting compounds are reported as positive. False positive and false negative results are possible. Confirmatory testing required for definitive results. Current Interpretive Data was last reviewed 2022. Testing performed by: [address] [address] Cannabinoids, ur Not Detected CutOff 50 ng/mL MARY JANE Comment: Interpretive Data - Cannabinoids: Samples containing greater than 50 ng/mL delta-9 THC -COOH or other cross- reacting compounds are reported as positive. False positive and false negative results are possible. Confirmatory testing required for definitive results. Current Interpretive Data was last reviewed 2022. Testing performed by: [address] [address] Cocaine, ur Not Detected CutOff 150ng/mL [facility] Comment: Interpretive Data - Cocaine: Samples containing greater than 150 ng/mL benzoylecgonine or other cross- reacting compounds are reported as positive. False positive and false negative results are possible. Confirmatory testing required for definitive results. Current Interpretive Data was last reviewed 2022. Testing performed by: [address] [address] Fentanyl, Ur Not Detected Cutoff 1 ng/mL [facility] Comment: Interpretive Data - Fentanyl: Samples containing greater than 1 ng/mL fentanyl or other cross-reacting fentanyl compounds are reported as positive. False positive and false negative results are possible. Confirmatory testing required for definitive results. Current Interpretive Data was last reviewed 2022. Testing performed by: [address] [address] Methadone, ur Not Detected CutOff 300ng/mL [facility] Comment: Interpretive Data - Methadone: Samples containing greater than 300 ng/mL d,l-methadone or other cross-reacting compounds are reported as positive. False positive and false negative results are possible. Confirmatory testing required for definitive results. Current Interpretive Data was last reviewed 2022. Testing performed by: [address] [address] Opiates, ur Screen Positive, presumptive (A) CutOff 300ng/mL [facility] Comment: Interpretive Data - Opiates: Samples containing greater than 300 ng/mL morphine or other cross-reacting compounds are reported as positive. False positive and false negative results are possible. Confirmatory testing required for definitive results. Current Interpretive Data was last reviewed 2022. Testing performed by: [address] [address] Oxycodone, ur Not Detected CutOff 100ng/mL [facility] Comment: Interpretive Data - Oxycodone: Samples containing greater than 100 ng/mL oxycodone or other cross-reacting compounds are reported as positive. False positive and false negative results are possible. Confirmatory testing required for definitive results. Current Interpretive Data was last reviewed 2022. Testing performed by: [address] [address] Phencyclidine, ur Not Detected CutOff 25 ng/mL MARY JANE Comment: Interpretive Data - Phencyclidine: Samples containing greater than 25 ng/mL phencyclidine or other cross-reacting compounds are reported as positive. False positive and false negative results are possible. Confirmatory testing required for definitive results. Current Interpretive Data was last reviewed 2022. Testing performed by: [address] [address] Urine Creatinine 64 mg/dL MARY JANE Comment: Interpretive Data Urine Creatinine: < 10 mg/dL is extremely dilute = or > 10 but < 20 mg/dL is dilute = or > 20 mg/dL is normal Current Interpretive Data was last revised on 2017. Testing performed by: [address] [address] Urine 12/02/2024 6:19 PM CDT 12/02/2024 6:22 PM CDT Narrative [facility] - 12/02/2024 6:46 PM CDT Drug of Abuse screening is performed by immunoassay for medical purposes only. This is not to be used for Pain Management purposes. Patrick Rice DO LAB URINE ORDERABLES Final Result [facility] [address] [facility] Department of Laboratories [place], [place] [id number] * (ABNORMAL) D-dimer, quantitative (12/02/2024 6:19 PM CDT) D-Dimer 630(H) <=499 ng/mL FEU Comment: Interpretive data FDA [...] VTE cut-off 680 ng/ml FEU. References; Schtan SAN et al. Brit Med J. 2013;346:f2492. Pooja HERNANDES et al. Annals Int Med. 2015;163:701-11. Current interpretive data was last revised on 2019. Testing performed by: [address] [address] Blood 12/02/2024 6:19 PM CDT 12/02/2024 6:22 PM CDT us Patrick Les Rice DO LAB BLOOD ORDERABLES Final Result Performing Organization Address City/[facility]/ZIP Co de Phone Number MARY JANE [address] [place] [address] * (ABNORMAL) Troponin T high-sensitivity 2-hour (12/02/2024 5:53 PM CDT) Trop T hs 23(H) <=14 ng/L Comment: Interpretive Data For further hscTnT resources including the diagnostic algorithm and an aid in interpretation, copy and paste this link: https://nrl.testcatalog.org/show/hsTrop Current Interpretive Data last revised 2020. Testing performed by: [address] [address] Trop T hs delta -2 ng/L MARY JANE Comment:Testing performed by : [address] [address] Trop T hs interp Insignificant MARY JANE Comment:Testing performed by : [address] [address] Blood 12/02/2024 5:53 PM CDT 12/02/2024 5:55 PM CDT us Gil Diez DO LAB BLOOD ORDERABLES Final Result Performing Organization Address City/[facility]/ZIP Co de Phone Number MARY JANE [address] [place] [address] * POCT glucose (12/02/2024 4:25 PM CDT) Glucose, POC 195 70 - 199 mg/dL Comment:Testing performed by : [address] [address] Blood 12/02/2024 4:25 PM CDT 12/02/2024 4:25 PM CDT Notinfile Unknown LAB POCT ORDERABLES - DEVICE F inal Result Performing Organization Address [facility] de Phone Number MARY JANE [address] [place] [address] * (ABNORMAL) Troponin T high-sensitivity series (baseline, 2hr, 4hr, 6hr) (12/02/2024 3:57 PM CDT) Pathologist [facility] Trop T hs 25(H) <=14 ng/L Comment: Interpretive Data For further hscTnT resources including the diagnostic algorithm and an aid in interpretation, copy and paste this link: https://nrl.testcatalog.org/show/hsTrop Current Interpretive Data last revised 2020. Testing performed by: [facility], [address] [place] [address]., [address] Blood 12/02/2024 3:57 PM CDT 12/02/2024 4:11 PM CDT us Patrick Rice DO LAB BLOOD ORDERABLES Final Result Performing Organization Address [facility] de Phone Number [address] [place] [address] * eGFR (12/02/2024 3:57 PM CDT) eGFR >90 >=60 mL/min/1. [...] last reviewed 2021. Testing performed by: [address] [address] Blood 12/02/2024 3:57 PM CDT 12/02/2024 4:11 PM CDT Patrick Rice DO LAB BLOOD ORDERABLES Final Result [facility] Department [place] [address] * (ABNORMAL) Differential, auto (12/02/2024 3:57 PM CDT) Neutrophil abs 7.87(H) 1.50 - 6.50 K/cumm Comment:Testing performed by : [address] [address] Imm gran abs 0.05 0.00 - 0.10 K/cumm MARY JANE Comment:Testing performed by : [address] [address] Lymphocyte abs 1.99 0.80 - 3.30 K/cumm MARY JANE Comment:Testing performed by : [address] [address] Monocyte abs 0.54 0.20 - 0.80 K/cumm MARY JANE Comment:Testing performed by : [address] [address] Eosinophil abs 0.10 0.00 - 0.50 K/cumm MARY JANE Comment:Testing performed by : [address] [address] Basophil abs 0.03 0.00 - 0.10 K/cumm MARY JANE Comment:Testing performed by : [address] [address] Neutrophil pct 74.4 % [facility] Comment: Interpretive Data Percent cell count reference ranges are not reported, since discordance with absolute values may lead to misinterpretation of CBC data. Current Interpretive Data was last revised on 2017. Testing performed by: [address] [address] Imm gran pct 0.5 % [facility] Comment: Interpretive Data Percent cell count reference ranges are not reported, since discordance with absolute values may lead to misinterpretation of CBC data. Current Interpretive Data was last revised on 2017. Testing performed by: [address] [address] Lymphocyte pct 18.8 % [facility] Comment: Interpretive Data Percent cell count reference ranges are not reported, since discordance with absolute values may lead to misinterpretation of CBC data. Current Interpretive Data was last revised on 2017. Testing performed by: [address] [address] Monocyte pct 5.1 % [facility] Comment: Interpretive Data Percent cell count reference ranges are not reported, since discordance with absolute values may lead to misinterpretation of CBC data. Current Interpretive Data was last revised on 2017. Testing performed by: [address] [address] Eosinophil pct 0.9 % [facility] Comment: Interpretive Data Percent cell count reference ranges are not reported, since discordance with absolute values may lead to misinterpretation of CBC data. Current Interpretive Data was last revised on 2017. Testing performed by: [address] [address] Basophil pct 0.3 % [facility] Comment: Interpretive Data Percent cell count reference ranges are not reported, since discordance with absolute values may lead to misinterpretation of CBC data. Current Interpretive Data was last revised on 2017. Testing performed by: [address] [address] Blood 12/02/2024 3:57 PM CDT 12/02/2024 4:14 PM CDT Patrick Les [facility] LAB BLOOD ORDERABLES Final Result MARY JANE [address] [facility] Department [place] [address] * Pro B-type natriuretic peptide (12/02/2024 3:57 PM CDT) NT-proBNP 93 <=300 pg/mL Comment: Interpretive Comments: A. Dyspnea [...] Last Revised Date: 2017. Testing performed by: [facility], [address] [place] [address]., [address] Blood 12/02/2024 3:57 PM CDT 12/02/2024 4:11 PM CDT Patrick Les Rice LAB BLOOD ORDERABLES Final Result MARY JANE [address] [facility] Department [place] [address] * (ABNORMAL) CBC with auto differential (12/02/2024 3:57 PM CDT) WBC 10.58(H) 3.80 - 9.90 K/cumm Comment:Testing performed by : [address] [address] Hgb 12.2 11.9 - 15.5 g/dL MARY JANE Comment:Testing performed by : [address] [address] Hct 37.6 35.6 - 45.5 % MARY JANE Comment:Testing performed by : [address] [address] Plt 263 150 - 400 K/cumm MARY JANE Comment:Testing performed by : [address] [address] MPV 10.2 9.1 - 12.3 fL MARY JANE Comment:Testing performed by : [address] [address] RBC 4.19 3.90 - 5.20 M/cumm MARY JANE Comment:Testing performed by : [address] [address] MCV 89.7 81.3 - 96.4 fL MARY JANE Comment:Testing performed by : [address] [address] MCH 29.1 27.1 - 33.3 pg MARY JANE Comment:Testing performed by : [address] [address] MCHC 32.4 32.3 - 35.7 g/dL MARY JANE Comment:Testing performed by : [address] [address] RDW CV 13.7 11.1 - 14.9 % MARY JANE Comment:Testing performed by : [address], [address] RDW SD 45.0 35.7 - 48.1 fL MARY JANE Comment:Testing performed by : [address] [address] NRBC abs 0.00 0.00 - 0.01 K/cumm MARY JANE PHAM Comment:Testing performed by : [address] [address] Blood 12/02/2024 3:57 PM CDT 12/02/2024 4:14 PM CDT Patrick Les Sousahu LAB BLOOD ORDERABLES Final Result MARY JANE [address] [facility] Department of Laboratories [place], [place] [id number] * (ABNORMAL) Comprehensive metabolic panel (12/02/2024 3:57 PM CDT) Sodium 139 135 - 145 mmol/L Comment:Testing performed by : [address] [address] Potassium, pl 4.5 3.3 - 4.9 mmol/L MARY JANE Comment:Testing performed by : [address] [address] Chloride 101 97 - 110 mmol/L MARY JANE Comment:Testing performed by : [address] [address] CO2 26 22 - 32 mmol/L MARY JANE Comment:Testing performed by : [address] [address] Anion gap 12 2 - 15 mmol/L MARY JANE Comment:Testing performed by : [address] [address] BUN 17 6 - 25 mg/dL MARY JANE Comment:Testing performed by : [address] [address] Creatinine 0.60 0.60 - 1.10 mg/dL MARY JANE Comment:Testing performed by : [address] [address] Glucose 252(H) 70 - 199 mg/dL MARY JANE Comment: [...] was last revised 2022. Testing performed by: [address] [address] Calcium 9.8 8.5 - 10.3 mg/dL MARY JANE Comment:Testing performed by : [address] [address] Bilirubin, total 0.5 0.1 - 1.2 mg/dL MARY JANE Comment:Testing performed by : [address] [address] Protein, pl 7.8 6.5 - 8.5 g/dL MARY JANE Comment:Testing performed by : [address] [address] Albumin 4.0 3.5 - 5.0 g/dL MARY JANE Comment:Testing performed by : [address] [address] Alk phos 79 40 - 130 Units/L MARY JANE Comment:Testing performed by : [address] [address] ALT 23 7 - 45 Units/L MARY JANE Comment:Testing performed by : [address] [address] AST 22 10 - 45 Units/L MARY JANE Comment:Testing performed by : [address] [address] Blood 12/02/2024 3:57 PM CDT 12/02/2024 4:11 PM CDT Patrick Rice DO LAB BLOOD ORDERABLES Final Result MARY JANE [address] [facility] Department [place] [address] * XR Chest 1 Vw Portable (If patient hemodynamically UNstable or UNable to ambulate) (12/02/2024 3:44PM CDT) Anatomical Region Laterality Modality Body, Chest N/A Computed Radiogr aphy 12/02/2024 3:59 PM CDT Narrative 12/02/2024 4:01 PM CDT EXAM DESCRIPTION: XR CHEST 1 VIEW REASON FOR STUDY: Shortness of breath States recently diagnosed with CHF, c/o increased shortness of breath, swelling of her legs, abdomen, and face today. TECHNIQUE: 1 radiographic view(s) of the chest. COMPARISON: 07/02/2019 FINDINGS: LUNGS: There is mild scattered atelectasis. No definite pulmonary edema or pneumonia is seen. No pleural effusion or pneumothorax identified. HEART/MEDIASTINUM: Unchanged cardiomediastinal contours and heart size. LINES/TUBES: None. BONES: No acute displaced fracture or aggressive bone lesion is seen. Visualized upper abdomen is grossly unremarkable IMPRESSION: Mild scattered atelectasis. No definite pulmonary edema or pneumonia. THIS IS AN ELECTRONICALLY VERIFIED FINAL REPORT 12/02/2024 4:01 PM - Electronically signed by Wilfrid Valdez M.D. MZ: FAUSTINA Report ID: [id number] Reading Location: [id number] Procedure Note Wilfrid Valdez MD - 12/02/2024 EXAM DESCRIPTION: XR CHEST 1 VIEW REASON FOR STUDY: Shortness of breath States recently diagnosed with CHF, c/o increased shortness of breath, swelling of her legs, abdomen, and face today. TECHNIQUE: 1 radiographic view(s) of the chest. COMPARISON: 07/02/2019 FINDINGS: LUNGS: There is mild scattered atelectasis. No definitepulmonary edema or pneumonia is seen. No pleural effusion or pneumothoraxidentified. HEART/MEDIASTINUM: Unchanged cardiomediastinal contours and heart size. LINES/TUBES: None. BONES: No acute displaced fracture or aggressive bone lesion is seen. Visualized upper abdomen is grossly unremarkable IMPRESSION: Mild scattered atelectasis. No definite pulmonary edema or pneumonia. THIS IS AN ELECTRONICALLY VERIFIED FINAL REPORT 12/02/2024 4:01 PM - Electronically signed by Wilfrid Valdez M.D. MZ: MZ Report ID: [id number] Reading Location: [place] [address] Patrick Rice DO IMG XR PROCEDURES Final Res ult * ECG 12 lead (12/02/2024 3:33 PM CDT) Ventricular Rate EKG/Min 78 BPM [facility] Atrial Rate 78 BPM [facility] OH-Interval (MSEC) 122 ms [facility] QRS-Interval (MSEC) 82 ms [facility] QT-Interval (MSEC) 380 ms [facility] QTc 433 ms [facility] P [place] 7 degrees [facility] R [place] 3 degrees [facility] T [place] 11 degrees [facility] Diagnosis Normal sinus rhythm Normal ECG When compared with ECG of 01-JUL-2024 14:05, No significant change Confirmed by SULTAN MARTINEZ M.D. ([id number]) on 12/03/2024 4:50:33 PM [facility] 12/02/2024 3:33 PM CDT 12/03/2024 4:50 PM CDT Patrick Rice DO ECG ORDERABLES Final Resul t [facility] * Cardiology Document Scan (11/19/2024 11:45 AM CDT) Anatomical Region Laterality Modality Other Laury Moore NP CV CARDIAC SERVICES PROCEDUR ES Final Result * Dexa Axial Skeleton Bone Density 1 or 2 Site (08/02/2022 10:53 AM CDT) Anatomical Region Laterality Modality Body N/A Radiographic Lizeth ging Narrative 08/02/2022 3:34 PM CDT Patient Name: Mohsen Marques Date of : 1955 Date of scan: 08/02/2022 Bone mineral density was performed on a HoloRoomtag Discovery Densitometer. Based on machine cross-calibration and [...] by the International Society of Clinical Densitometry. [id number] us Khris Arthur MD IMG DXA PROCEDURES [...] agrees with it. ACC# Date Time Exam [id number] Aug 19, 2016 14:27:00 [facility] [address] [employer] inc CAD, unilat L Technologist(s): Carla Harris; ; [id number] Aug 19, 2016 15:39:00 [facility] 99742 Breast US unilateral, ltd L ACC# Date Time Exam [id number] Aug 19, 2016 14:27:00 [facility] 85773 [employer] CAD, unilat L Technologist(s): Carla Harris; ; [id number] Aug 19, 2016 15:39:00 [facility] [id number] Breast US unilateral, ltd L EXAMINATION: LEFT [...] SARABIA M.D. on Aug 19 2016 4:20P [id number] Procedure Note Miscellaneous, Not In File / Provider, MD Tyler - 09/17/2016 ANTHONY SARABIA M.D. JUDY RINCON M.D. FINAL REPORT The radiology attending physician has personally reviewed this study, and has reviewed and/or edited this written report and agrees with it. ACC# Date Time Exam [id number] Aug 19, 2016 14:27:00 [facility] [address]1205 [employer] CAD, unilat L Technologist(s): Carla Harris; ; [id number] Aug 19, 2016 15:39:00 [facility] 79399 Breast US unilateral, ltd L ACC# Date Time Exam [id number] Aug 19, 2016 14:27:00 [facility] [address]381 Diag Mamm, inc CAD, unilat L Technologist(s): Carla Harris; ; [id number] Aug 19, 2016 15:39:00 [facility] [address] Breast US unilateral, ltd L EXAMINATION: LEFT [...] SARABIA M.D. on Aug 19 2016 4:20P [id number] us Not In File Miscellaneous IMG MAMMO PROCEDURES F inal Result from Last 3 Months or Most Recently Relevant to Health Maintenance Insurance IDPA [facility] MEDICARE ADVANTAGE [facility] MEDICARE ADVANTAGE [place] [id number] [place]PA [facility] MEDICARE ADVANTAGE Advance Directives For more information, please contact: [phone] Documents on File Type Date Recorded Patient Computer Language Coder Expl anation ADVANCE DIRECTIVE 12/23/2021 2:49 PM Power of Aerospace Quality Engineer-Medical ADVANCE DIRECTIVE 12/23/2021 2:49 PM Living Will * Full Code (Latest Code Status on File) Date Activated Date Inactivated Comments 12/02/2024 11:12 PM 12/05/2024 7:36 PM * Full Code Date Activated Date Inactivated Comments 05/22/2024 7:16 PM 05/26/2024 11:02 PM * Full Code Date Activated Date Inactivated Comments 08/14/2023 6:40 PM 08/18/2023 5:22 PM * Full Code Date Activated Date Inactivated Comments 08/14/2023 5:58 PM 08/14/2023 5:58 PM * Full Code Date Activated Date Inactivated Comments 02/09/2022 7:34 PM 02/17/2022 3:45 PM Healthcare Agents on File Name Relationship Healthcare Agent [facility] Communication Yunior Marques Daughter Health Care Agent Jimmie Marques Spouse First Alternate Health Care Agent Care Teams Tube Puller Relationship Specialty Start Date End Date Justen Gale MD [address] [address] PCP - General 10/09/17 Liu Jerez MD Consulting Physician Gastroenterology 07/28/17 [place] [address] [facility] [address] [place] [address] Consulting Physician Pulmonary Disease 08/03/17 Khris Arthur MD [address] [facility] [address] [place] [address] Medical Oncologist/Employee Wellness/Fitness Coordinator Medical Oncology 10/23/17 [place] [address] [facility] [facility] [address] [place] [address] Surgeon Orthopedic Surgery 10/23/17 [place] [address] [address] Consulting Physician Pain Management 10/23/17 [place] [address] [facility] [address] [place] [address] Referring Physician General Surgery 01/26/18 [place] [address] [facility] [address] [place] [address] Consulting Physician Neurology 01/26/18
--- OUTSIDE RECORDS SUMMARY | 2024-12-23 12:52 | XMS_ITS | Clinical Summary ---
Author Organization [facility] Address [address] [place] [address] Care Team Providers Care Shoe Cutter Name Role Phone Justen Gale MD Primary Care Provider [phone] Source Comments [facility] Affiliates and Associated Physician Practices is amultiple site organization consisting of ambulatory clinics and hospital sitesin [place], [place], [place] and [place]. This disclosure is being madepursuant to the Care Everywhere program and may not contain all information available regarding this patient. Last updated 18.[facility] Fastr Allergies Active Allergy Reactions Criticality Noted Date [...] Gluc Sensor (FreeStyle Eileen 2 Sensor Systm) [facility] APPLY 1 SENSOR AND WEAR FOR 14 [...] medical care, and heating? Somewhat hard 05/16/2023 [facility] [place] of Occupat ional Health - Occupational Stress [...] in a intermediate (including now)? No 05/16/2023 Comments No Sex and Gender Information Value Date Recorded Sex Assigned at Not on file Legal Sex Female 6:53 PM BEAM PRESS OPERATOR Gender Identity Not on file [...] this topic Medical Devices Implanted Type Area Wallpaper Hanger Helper Device Identifier Shelf Expiration Date Model / Serial / Lot Lead Nrstm 60cm Penta 3mm Pdl 16 Chnl Implanted:Qt y: 1 on 09/16/2021 by Maix Gregg MD at [facility] Right: Spine Thoracic Advanced [employer] [id number] / / Description:CAMILO Slnt Dura Duraseal Pg Trilysine Amine 5 Implanted:Qt y: 1 on 09/16/2021 by Maxi Gregg MD at [facility] Right: Spine Thoracic Integra [employer] David [id number] / / Description:CAMILO Proclaim Plus 5 Implanted:Qt y: 1 on 02/16/2023 by Maxi Gregg MD at [facility] Left: Back Cardenas Spine [id number] 11/07/2024 3670 / [id number] / Explanted Type Area Wallpaper Hanger Helper Device Identifier Shelf Expiration Date Model / Serial / Lot Gntr Nrstm 1.95inx2.19in Proclaim Elt Implanted:Qty: 1 on 09/16/2021 by Maxi Gregg MD at [facility] Explanted:Qty: 1 on 10/30/2021 by Maxi Gregg MD at [facility] Right: Spine Thoracic [employer] [...] COMPREHENSIVE METABOLIC PANEL (08/09/2024 1:40 PM CDT) [facility] Glucose 212(H) 70 - 99 mg/dL 08/09/2024 2:09 PM CDT [facility] Sodium 136 136 - 145 mmol/L 08/09/2024 2:09 PM CDT [facility] Potassium 3.9 3.5 - 5.1 mmol/L 08/09/2024 2:09 PM CDT [facility] Chloride 103 98 - 107 mmol/L 08/09/2024 2:09 PM CDT [facility] CO2 24 22 - 29 mmol/L 08/09/2024 2:09 PM CDT [facility] Calcium 9.4 8.4 - 10.4 mg/dL 08/09/2024 2:09 PM T [facility] Anion Gap 9 6 - 16 mmol/L 08/09/2024 2:09 PM CDT [facility] BUN 19 7 - 26 mg/dL 08/09/2024 2:09 PM T [facility] Creatinine 0.82 0.57 - 1.11 mg/dL 08/09/2024 2:09 PM [facility] Alkaline Phosphatase 68 40 - 150 U/L 08/09/2024 2:09 PM T [facility] ALT 22 6 - 57 U/L 08/09/2024 2:09 PM T [facility] AST 23 10 - 48 U/L 08/09/2024 2:09 PM [facility] Protein Total 8.0 6.4 - 8.3 gm/dL 08/09/2024 2:09 PM T [facility] Albumin 3.3(L) 3.4 - 5.0 gm/dL 08/09/2024 2:09 PM T [facility] Bilirubin Total 0.9 0.2 - 1.2 mg/dL 08/09/2024 2:09 PM [facility] eGFR by CKD-EPI 78(L) >=90 mL/min/1.7 3 m2 08/09/2024 2:09 PM [facility] Blood BLOOD SPECIMEN / Unknown Venipuncture / Unknown 08/09/2024 1:40 PM CDT 08/09/2024 1:43 PM T us Josué Bernal PA-C LAB - CHEMISTRY ORDERABLE S Final Result [facility] [address] [place] [address] * HEPATITIS C AB SCREEN RFLX NAAT QUANT (02/21/2023 6:30 PM CDT) Hepatitis C Antibody Non-react hugh Non-reac tive 02/21/2023 7:32 PM CDT [facility] Comment:Hepatitis C Antibody screen indicates [...] MD LAB - CHEMISTRY ORDERABLES nal Result [facility] [address] [place] [address], [facility] [phone] * (ABNORMAL) HEMOGLOBIN A1C (12/25/2022 3:56 AM CDT) Pathologist [facility] Hemoglobin A1c 8.6(H) <=5.6 % 12/25/2022 2:47 PM CDT [facility] Estimated Average Glucose 200 mg/dL 12/25/2022 2:47 PM CDT [facility] Comment: HbA1c Interpretation: Normal : < 5.7% Pre-diabetes: 5.7-6.4% Diabetes: Equal to or greater than 6.5% Test results diagnostic of diabetes should be repeated for confirmation. Treatment target values recommended by ADA and other clinical organizations should be used to evaluate metabolic control in patients. Reference: [place] Diabetes Association, Standards of Care in Diabetes [...] LAB - CHEMISTRY RUSS VIZCARRA Final Result [place] [id number] [place] [address], [facility] [phone] from Last 3 Months or Most Recently Relevant to Health Maintenance Insurance [facility] MANAGED MEDICARE ADV [address], [place] [id number] [facility] MANAGED MEDICARE [facility] MEDICAID - [place] Advance Directives * Full Code (Latest Code [...] 3:37 AM 03/23/2023 7:14 PM Care Teams Shoe Cutter Relationship Specialty Start Date End Date Justen Gale MD PCP - General 07/05/21
--- OUTSIDE RECORDS SUMMARY | 2024-12-23 12:52 | XMS_ITS | Encounter Summary ---
Author Organization [facility] Address [address] [place] [address] Phone Care Team Providers Care House Superintendent Name Role Phone Justen Gale MD Primary Care Provider David Roberts APRN, TELEPHOTO INSTALLER Unavailable Annel Rod MD Unavailable Reason for Visit * Reason Comments Medication Refill Encounter Details Date Type Department Care Team (Late st Contact Info) Description 02/07/2023 Refill [facility] [address] [place] [id number] Catrina Quiñ[place] [address] [place] [address] Medication Refill Social History Tobacco Use Types [...] [place] 09/16/22 Office Visit Pili Elkins APRN, NETTA [facility] [place] 07/05/22 Office Visit Pili Elkins APRN, NETTA [facility] [place] 05/02/22 Office Visit Justen Gale MD [facility] [place] 03/03/22 Office Visit Pili Elkins APRN, TELEPHOTO INSTALLER [facility] [place] Showing recent visits within past 365 days and meeting all other requirements Future Appointments No visits were found meeting these conditions. Showing future appointments within next 90 days and meeting all other requirements documented in this encounter Plan of Treatment Upcoming Encounters Date Type Department Care Team (Late st Contact Info) Description 01/13/2025 2:45 PM CDT Office Visit [facility]YS[facility]IAN GROUP UROLOGY #2 [place] [address] Pili Elkins APRN, TELEPHOTO INSTALLER #[address] [address] David Roberts APRN, TELEPHOTO INSTALLER #2 [place] [address] 01/21/2025 2:00 PM CDT [facility] 1 [place] [address] Annel Rod MD #[address] [address] Discharge Disposition: Discharged to home or Selfcare 03/19/2025 2:00 PM END TOUCHING MACHINE OPERATOR Office Visit [facility] Endocrin[facility] #2 [place] [address] Annel Rod MD #[address] [address] 05/29/2025 1:30 PM END TOUCHING MACHINE OPERATOR Office Visit [facility] - Family Medicine - [place] #2 [place] [address] Justen Gale MD #[address] [address] documented as of this encounter Visit Diagnoses Not on filedocumented in this encounter Additional Health Concerns Infection Onset Date Last Indicated Resolved Time COVID - 19 08/01/2024 08/01/2024 08/01/2024 3:20 PM CDT Respiratory Rule-Out 11/18/2024 11/18/2024 08/06/2 025 7:18 AM CDT Assessment Noted Time PHQ-9 Depression Total Score: 8 01/18/20 23 2:24 PM CDT documented as of this encounter Care Teams House Superintendent Relationship Specialty Start Date End Date Justen Gale MD #2 [facility] [address] [place] [address] PCP - General Family Medicine 10/17/17 David Roberts APRN, TELEPHOTO INSTALLER [address] [place] [address] Nurse Practitioner Advanced Practice Nurse 01/31/22 Annel Rod MD #2 [facility] [address] [place] [address] Consulting Physician Endocrinology 07/01/22 documented as of this encounter
--- OUTSIDE RECORDS SUMMARY | 2024-12-23 12:52 | XMS_ITS | Encounter Summary ---
Author Organization [facility] Address [address] [place] [address] Phone Care Team Providers Care Geothermal Installer Name Role Phone Justen Gale MD Primary Care Provider [phone] David Roberts APRN, ENTRY LEVEL AUTOMOTIVE TECHNICIAN Unavailable [phone] Annel Rod MD Unavailable Reason for Visit * Reason Comments Medication Refill Encounter Details Date Type Department Care Team (Late st Contact Info) Description 08/30/2022 Refill [facility] #2 [place] [address] Justen Gale MD #[address] [address] Medication Refill Social History Tobacco Use Types [...] [place] 05/02/22 Office Visit Justen [facility] MD [facility] [place] 03/03/22 Office Visit Pili Elkins APRN, NETTA [facility] [place] 01/03/22 Office Visit Dannielle Berg PAC [facility] [place] 12/07/21 Office Visit Pili Elkins APRN, NETTA [facility] 11/09/21 Office Visit Pili Elkins APRN, NETTA [facility] [place] 10/08/21 Office Visit Angelito Alegria APRN, NETTA [facility] [place] 08/30/21 Office Visit [facility] Showing recent visits within past 365 days and meeting all other requirements Future Appointments No visits were found meeting these conditions. Showing future appointments within next 90 days and meeting all other requirements documented in this encounter Plan of Treatment Upcoming Encounters Date Type Department Care Team (Late st Contact Info) Description 01/13/2025 2:45 PM CDT Office Visit [facility]YS[facility]IAN GROUP UROLOGY #2 [place] [address] Pili Elkins APRN, ENTRY LEVEL AUTOMOTIVE TECHNICIAN #2 [facility] [address] [place] [address] David Roberts APRN, ENTRY LEVEL AUTOMOTIVE TECHNICIAN #2 [place] [address] 01/21/2025 2:00 PM CDT [facility]ment [facility] 1 [place] [address] Annel Rod MD #[address] [address] Discharge Disposition: Discharged to home or Selfcare 03/19/2025 2:00 PM VP OF PRODUCT Office Visit [facility] End[facility] - [place] #2 [place] [address] Annel Rod MD #[address] [place] [address] 05/29/2025 1:30 PM VP OF PRODUCT Office Visit [facility] - [place] #2 [facility] [place] [address] Justen Gale MD #[address] [address] documented as of this encounter Visit Diagnoses Not on filedocumented in this encounter Additional Health Concerns Infection Onset Date Last Indicated Resolved Time COVID - 19 08/01/2024 08/01/2024 08/01/2024 3:20 PM CDT Respiratory Rule-Out 11/18/2024 11/18/2024 025 7:18 AM CDT Assessment Noted Time PHQ-9 Depression Total Score: 0 07/21/19 21 3:00 PM CDT documented as of this encounter Care Teams Geothermal Installer Relationship Specialty Start Date End Date Justen Gale MD #2 [facility] [address] [place] [address] PCP - General Family Medicine 10/17/17 David Roberts, GATE WATCHMAN, ENTRY LEVEL AUTOMOTIVE TECHNICIAN #2 [place] [address] Nurse Practitioner Advanced Practice Nurse 01/31/22 Annel Rod MD #2 [facility] [address] [place] [address] Consulting Physician Endocrinology 07/01/22 documented as of this encounter
--- OUTSIDE RECORDS SUMMARY | 2024-12-23 12:52 | XMS_ITS | Encounter Summary ---
Author Organization [facility] Address [address] [place] [address] Phone Care Team Providers Care Dba Developer Name Role Phone Justen Gale MD Primary Care Provider David Roberts APRN, SENIOR QA ANALYST Unavailable Annel Rod MD Unavailable Reason for Visit * Reason Onset Date Comments Medication Refill 08/06/2020 Encounter Details Date Type Department Care Team (Late st Contact Info) Description 08/06/2020 Refill [facility] #2 [place] [phone] Justen Gale MD #[address] [address] Medication Refill Social History Tobacco Use Types [...] Outpatient Visits 2 weeks ago [facility] APN, SENIOR QA ANALYST 2 months ago Increased urinary frequency [facility] Pili Mueller APN, SENIOR QA ANALYST 5 months ago Urinary frequency [facility] Pili Mueller APN, SENIOR QA ANALYST 8 months ago Type 2 diabetes mellitus with diabetic polyneuropathy, with long- term current use of insulin (HCC) [facility] Pili Mueller APN, SENIOR QA ANALYST 9 months ago [facility] Justen Urbano MD Upcoming Appointments Future Appointments In 6 days Pili Elkins APN, SENIOR QA ANALYST [facility] ELECTRICAL MANUFACTURING TECHNICIAN - Recent and Past Visits Recent Visits Date Type Provider Dept 07/20/20 Office Visit Pili Elkins APN, SENIOR QA ANALYST [facility] 06/05/20 Office Visit Pili Elkins APN, NETTA [facility] [place] 02/17/20 Office Visit Pili Elkins APN, NETTA [facility] 12/03/19 Office Visit Pili Elkins APN, NETTA [facility] [place] 11/05/19 Telemedicine Justen Gale MD [facility] 07/25/19 Telemedicine [facility] Showing recent visits within past 460 days with a meds authorizing provider and meeting all other requirements Future Appointments Date Type Provider Dept 08/12/20 Appointment Pili Elkins APN, NETTA [facility] Showing future appointments within next 90 days [...] Description 01/13/2025 2:45 PM CDT Office Visit [facility] UROLOGY #2 [place] [address] Pili Elkins APRN, CNP #[address] [phone] David Roberts APRN, NETTA #2 [place] [address] 01/21/2025 2:00 PM CDT Appointment [facility] Ul[facility]ound 1 [place] [address] Annel Rod MD #[address] [place] [address] Discharge Disposition: Discharged to home or Selfcare 03/19/2025 2:00 PM ASSOCIATE Office Visit [facility] #2 [place] [address] Annel Rod MD #[address] [address] 05/29/2025 1:30 PM ASSOCIATE Office Visit [facility] - Family Medicine [facility] #2 [place] [address] Justen Gale MD #[address] [address] documented as of this encounter Visit Diagnoses [...] End Date Justen Gale MD #[address] [address] PCP - General Family Medicine 10/17/17 David Roberts, BUSINESS SYSTEM CONSULTANT, SENIOR QA ANALYST #2 [place] [address] Nurse Practitioner Advanced Practice Nurse 01/31/22 Annel Rod MD #[address] [facility] [address] [address] Consulting Physician Endocrinology 07/01/22 documented as of this encounter
--- OUTSIDE RECORDS SUMMARY | 2024-12-23 12:52 | XMS_ITS | Encounter Summary ---
Author Organization [facility] Address [address] [place] [address] Care Team Providers Care Plant Tech Name Role Phone Liu Jerez MD Unavailable [phone] Albert Corbin MD Unavailable Justen Gale MD Primary Care Provider Khris Arthur MD Unavailable [phone] Ko Melendez MD Unavailable John Paul Moyer MD Unavailable Annel Rod MD Unavailable Anali MARSHALL MD, Carlos M. Unavailable Encounter Details Date Type Department Care Team (Late st Contact Info) Description 12/20/2024 Orders Only [facility] Cardiology [address] [place] [address] Laury Moore NP [address] [place] [address] Social History Tobacco Use Types Packs/Day Years [...] any clubs o r organizations such as adventism groups, unions, fraternal or athletic groups, or [...] in a detention (including now)? No 05/24/2024 Social Connection and Isolation Panel Answer Date Recorded In a typical week, how many times do you talk on the phone with family, friends, or neighbors? More than three times a week 12/03/2024 How often do you get togethe r with friends or relatives? More than three times a week 12/03/2024 How often do you attend chur ch or christian services? More than 4 times per year 12/03/2024 Do you belong to any clubs o r organizations such as adventism groups, unions, fraternal or athletic groups, or [...] medical appointments or from getting medications? No 08/1 07/2024 In the past 12 months, has l [...] living in a detention (including now)? No 12/03/2024 [facility] Utilities Answer [...] on file Legal Sex Female 12:24 AM BIOMETRICIAN Gender Identity Not on file Sexual Orientation Not on file documented as of this encounter Plan of Treatment Not on file documented as of this encounter Procedures Procedure Name Priority Date/Time Associated Diagnosis Comments CARDIOLOGY DOCUMENT SCAN Routine 025 11:45 AM CDT documented in this encounter Results * Cardiology Document Scan (11/19/2024 11:45 AM CDT) Anatomical Region Laterality Modality Other Laury Moore NP CV CARDIAC SERVICES PROCEDUR ES Final Result documented in this encounter Visit Diagnoses Not on filedocumented in this encounter Care Teams Plant Tech Relationship Specialty Start Date End Date Justen Gale MD [address] [place] [address] PCP - General 10/09/17 Liu Jerez MD Consulting Physician Gastroenterology 07/28/17 [place] [address] [place] [address] Consulting Physician Pulmonary Disease 08/03/17 Khris Arthur MD [address] [facility] [address] [place] [address] Medical Oncologist/Negative Checker Medical Oncology 10/23/17 [place] [address] [address] [place] [address] Surgeon Orthopedic Surgery 10/23/17 [place] [address] [address] [place] [address] Consulting Physician Pain Management 10/23/17 [place] [address] [address] [facility] [address] [place] [address] Referring Physician General Surgery 01/26/18 [place] [address] [address] [place] [address] Consulting Physician Neurology 01/26/18 documented as of this encounter
--- OUTSIDE RECORDS SUMMARY | 2024-12-23 12:52 | XMS_ITS | Encounter Summary ---
Author Organization [facility] Address [address] [place] [address] Phone Care Team Providers Care Plant Operator Name Role Phone Lavonne Hathaway MD Primary Care Provider + [phone] Liu Jerez MD Unavailable [phone] Albert Corbin MD Unavailable [phone] Justen Gale MD Primary Care Provider + [phone] Lavonne Hathaway MD Primary Care Provider + [phone] Justen Gale MD Primary Care Provider + [phone] Khris Arthur MD Unavailable + [phone] Ko Melendez MD Unavailable [phone] John Paul Moyer MD Unavailable Annel Rod MD Unavailable Anali MARSHALL MD, Carlos M. Unavailable [phone] Encounter Details Date Type Department Care Team ([facility] Contact Info) Description 05/15/2017 Orders Only [facility] Scanning, Provider Social History Tobacco Use Types Packs/Day Years Used Date Smoking Tobacco: Former Alcohol Use Standard Drinks/Week Comments No 0 (1 standard drink = 0.6 oz pur e alcohol) Comments Unknown Sex and Gender Information Value Date Recorded Sex Assigned at Not on file Legal Sex Female 12:24 AM BEAD WIRE INSULATOR Gender Identity Not on file Sexual Orientation [...] COVID: Recovered 02/10/2022 02/10/2022 06/10/2022 3:05 AM BEAD WIRE INSULATOR Exposure, COVID-19 Comment:Added automatically based on COVID19 lab answers indicating exposure risk 02/11/2022 02/11/2022 02/15/2022 9:06 AM C DT COVID: Suspected 05/14/2022 05/14/2022 05/14/2022 10:41 AM BEAD WIRE INSULATOR COVID: Suspected 06/07/2022 06/07/2022 06/07/2022 12:28 PM BEAD WIRE INSULATOR COVID: Suspected 06/21/2022 06/21/2022 06/21/2022 2:12 AM BEAD WIRE INSULATOR COVID: Suspected 10/05/2022 10/05/2022 10/05/2022 7:40 PM CDT COVID: Suspected 01/04/2024 01/04/2024 01/04/2024 10:30 PM CDT COVID: Suspected 02/14/2024 02/14/2024 02/15/2024 12:36 AM CDT COVID: Suspected 07/01/2024 07/01/2024 07/01/2024 2:53 PM CDT COVID: Suspected 07/01/2024 07/01/2024 07/02/2024 3:05 AM CDT COVID: Suspected 12/08/2024 12/08/2024 12/08/2024 1:50 AM CDT documented as of this encounter Care Teams Plant Operator Relationship Specialty Start Date End Date Lavonne Hathaway MD [address] [place] [address] [place] [address] PCP - General 08/16/16 08/17/17 Justen Gale MD [address] [facility] [address] [place] [address] PCP - General 08/18/17 08/22/17 Lavonne Hathaway MD [address] [place] [address] [place] [address] PCP - General Family Medicine 08/23/17 10/08/17 Justen Gale MD [address] [facility] [address] [place] [address] PCP - General 10/09/17 Liu Jerez MD [address] [place] [address] [place] [address] Consulting Physician Gastroenterology 07/28/17 [place] [address] [address] [facility] [address] [place] [address] Consulting Physician Pulmonary Disease 08/03/17 Khris Arthur MD [address] [facility] [address] [place] [address] Medical Oncologist/Rehabilitation Consultant Medical Oncology 10/23/17 [place] [address] [address] [facility] [address] [place] [address] Surgeon Orthopedic Surgery 10/23/17 [place] [address] [address] [facility] [address] [place] [address] Consulting Physician Pain Management 10/23/17 [place] [address] [address] [facility] [address] [place] [address] Referring Physician General Surgery 01/26/18 [place] [address] [facility] [address] [place] [address] Consulting Physician Neurology 01/26/18 documented as of this encounter
--- OUTSIDE RECORDS SUMMARY | 2024-12-23 12:52 | XMS_ITS | Encounter Summary ---
Author Organization [facility] Address [address] [place] [address] Phone Care Team Providers Care Brass Plater Name Role Phone Justen Gale MD Primary Care Provider David Roberts APRN, PAINT STOCKMAN Unavailable Annel Rod MD Unavailable Reason for Visit * Reason Comments Medication Refill Encounter Details Date Type Department Care Team (Late st Contact Info) Description 02/07/2023 Refill [facility] Family Medicine [facility] #2 [place] [address] Pili Elkins APRN, PAINT STOCKMAN #[address] [address] Medication Refill Social History [...] 2:45 PM CDT Office Visit [facility] UROLOGY #2 [place] [phone] Pili Elkins, LINER CHECKER, PAINT STOCKMAN #[address] [phone] David Roberts, LINER CHECKER, PAINT STOCKMAN [address]2 [place] [address] 01/21/2025 2:00 PM CDT Appointment [facility] Ultrasound 1 [place] [address] Annel Rod MD #[address] [phone] Discharge Disposition: Discharged to home or Selfcare 03/19/2025 2:00 PM GUARD SUPERVISOR [facility] #2 [place] [address] Annel Rod MD #[address] [address] 05/29/2025 1:30 PM GUARD SUPERVISOR Office Visit [facility] #2 [place] [address] Justen Gale MD #[address] [address] documented as of this encounter Visit Diagnoses [...] as of this encounter Care Teams Brass Plater Relationship Specialty Start Date End Date Justen Gale MD #[address] [address] PCP - General Family Medicine 10/17/17 David Roberts, LINER CHECKER, PAINT STOCKMAN [address] [place] [address] Nurse Practitioner Advanced Practice Nurse 01/31/22 Annel Rod MD #[address] [address] Consulting Physician Endocrinology 07/01/22 documented as of this encounter
--- OUTSIDE RECORDS SUMMARY | 2024-12-23 12:52 | XMS_ITS | Encounter Summary ---
Author Organization [facility] Address [address] [place] [address] Phone Care Team Providers Care Auto Electrical Technician Name Role Phone Justen Gale MD Primary Care Provider David Roberts APRN, LANDFILL GAS TECHNICIAN Unavailable Annel Rod MD Unavailable Reason for Visit * Reason Comments Medication Refill Encounter Details Date Type Department Care Team (Late st Contact Info) Description 07/14/2022 Refill [facility] Family [facility] #2 [place] [address] Justen Gale MD #[address] [address] Medication Refill Social History Tobacco Use Types [...] Description 01/13/2025 2:45 PM CDT Office Visit [facility] UROLOGY #2 [place] [address] Pili Elkins, TRUMPET PLAYER, LANDFILL GAS TECHNICIAN #[address] [phone] David Roberts, TRUMPET PLAYER, LANDFILL GAS TECHNICIAN [address]2 [place] [address] 01/21/2025 2:00 PM CDT Appointment [facility] Ultrasound 1 [place] [address] Annel Rod MD #[address] [phone] Discharge Disposition: Discharged to home or Selfcare 03/19/2025 2:00 PM SIMULATION TECH Office Visit [facility] Endocrinology - [place] [address]2 [place] [address] Annel Rod MD #[address] [address] 05/29/2025 1:30 PM SIMULATION TECH Office Visit [facility] Family [facility] #2 [place] [address] Justen Gale MD #[address] [address] documented as of this encounter Visit Diagnoses Not on filedocumented in this encounter Additional Health Concerns Infection Onset Date Last Indicated Resolved Time COVID - 19 08/01/2024 08/01/2024 08/01/2024 3:20 PM CDT Respiratory Rule-Out 11/18/2024 11/18/2024 025 7:18 AM CDT Assessment Noted Time PHQ-9 Depression Total Score: 0 07/21/19 21 3:00 PM CDT documented as of this encounter Care Teams Auto Electrical Technician Relationship Specialty Start Date End Date Justen Gale MD #[address] [address] PCP - General Family Medicine 10/17/17 David Roberts TRUMPET PLAYER, LANDFILL GAS TECHNICIAN [address]2 [place] [address] Nurse Practitioner Advanced Practice Nurse 01/31/22 Annel Rod MD #[address] [address] Consulting Physician Endocrinology 07/01/22 documented as of this encounter
--- OUTSIDE RECORDS SUMMARY | 2024-12-23 12:52 | XMS_ITS | Encounter Summary ---
Author Organization [facility] Address [address] [place] [address] Care Team Providers Care Supervisor Heading Name Role Phone Liu Jerez MD Unavailable Albert Corbin MD Unavailable Justen Gale MD Primary Care Provider Khris Arthur MD Unavailable [phone] Ko Melendez MD Unavailable John Paul Moyer MD Unavailable [phone] Annel Rod MD Unavailable Anali MARSHALL MD, Carlos M. Unavailable Encounter Details Date Type Department Care Team (Late st Contact Info) Description 12/17/2024 [facility] Out[facility] [address] [place] [address] Madelyn Cruz, FIBERGLASS PRODUCT TESTER [address] [place] [address] Social History Tobacco Use Types Packs/Day Years [...] often do you attend chur ch or latter-day services? More than 4 times [...] any time in the past 12 m [facility], were you homeless or living in a senior care (including now)? No 05/24/2024 Social Connection and Isolation Panel Answer Date Recorded In a typical week, how many times do you talk on the phone with family, friends, or neighbors? More than three times a week 12/03/2024 How often do you get togethe r with friends or relatives? More than three times a week 12/03/2024 How often do you attend chur ch or latter-day services? More than 4 times [...] any time in the past 12 m [facility], were you homeless or living in a senior care (including now)? 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 Gender Identity Not on file Sexual Orientation Not on file documented as of this encounter Plan of Treatment Not on file documented as of this encounter Visit Diagnoses Not on filedocumented in this encounter Care Teams Supervisor Heading Relationship Specialty Start Date End Date Justen Gale MD 2 [facility] [address] [place] [address] PCP - General 10/09/17 Liu Jerez MD Consulting Physician Gastroenterology 07/28/17 [place] [address] [facility] [address] [place] [address] Consulting Physician Pulmonary Disease 08/03/17 Khris Arthur MD 49[address] [facility] [address] [place] [address] Medical Oncologist/Coastal Tug Mate Medical Oncology 10/23/17 [place] [address] [address] [facility] [address] [place] [address] Surgeon Orthopedic Surgery 10/23/17 [place] [address] [address] Consulting Physician Pain Management 10/23/17 [place] [address] [address] [facility] [address] [place] [address] Referring Physician General Surgery 01/26/18 [place] [address] [address] [facility] [address] [place] [address] Consulting Physician Neurology 01/26/18 documented as of this encounter
--- OUTSIDE RECORDS SUMMARY | 2024-12-23 12:52 | XMS_ITS | Encounter Summary ---
Author Organization [facility] Address [address] [place] [address] Phone Care Team Providers Care Ict Project Manager Name Role Phone Justen Gale MD Primary Care Provider David Roberts APRN, ELECTRIC RANGE ASSEMBLER Unavailable Annel Rod MD Unavailable Reason for Visit * Reason Comments Medication Refill Encounter Details Date Type Department Care Team (Late st Contact Info) Description 09/30/2023 Refill [facility] - Endocr[facility]ology - [place] [address] [place] [address] Annel Rod MD #[address] [address] Medication Refill Social History Tobacco [...] Description 01/13/2025 2:45 PM CDT Office Visit [facility] PHYSICIAN [facility] UROLOGY #[address] [place] [address] Pili Elkins, ZAMZAM, ELECTRIC RANGE ASSEMBLER #[address] [address] David Roberts APRN, ELECTRIC RANGE ASSEMBLER [address]2 [place] [address] 01/21/2025 2:00 PM CDT Appointment [facility] Ultrasound 1 [place] [address] Annel Rod MD #[address] [address] Discharge Disposition: Discharged to home or Selfcare 03/19/2025 2:00 PM CLIENT MANAGER LARGE LAW Office Visit [facility] Endocr[facility]ology - [place] [address] [place] [address] Annel Rod MD #[address] [place] [address] 05/29/2025 1:30 PM CLIENT MANAGER LARGE LAW Office Visit [facility] - Family [facility] #[address] [place] [address] Justen Gale MD #[address] [address] documented as of this encounter Visit Diagnoses Not on filedocumented in this encounter Additional Health Concerns Infection Onset Date Last Indicated Resolved Time COVID - 19 08/01/2024 08/01/2024 08/01/2024 3:20 PM CDT Respiratory Rule-Out 11/18/2024 11/18/2024 025 7:18 AM CDT Assessment Noted Time PHQ-9 Depression Total Score: 8 01/18/20 23 2:24 PM CDT documented as of this encounter Care Teams Ict Project Manager Relationship Specialty Start Date End Date Justen Gale MD #[address] [address] PCP - General Family Medicine 10/17/17 David Roberts APRN, NETTA [address] [place] [address] Nurse Practitioner Advanced Practice Nurse 01/31/22 Annel Rod MD #[address] [address] Consulting Physician Endocrinology 07/01/22 documented as of this encounter
--- OUTSIDE RECORDS SUMMARY | 2024-12-23 12:52 | XMS_ITS | Encounter Summary ---
Author Organization [facility] Address [address] [place] [address] Phone Care Team Providers Care Mill Labor Supervisor Name Role Phone Justen Gale MD Primary Care Provider David Roberts APRN, NATURAL RESOURCE ECONOMIST Unavailable [phone] Annel Rod MD Unavailable Reason for Visit * Reason Onset Date Comments Advice Only 08/19/2024 Follow-up 08/19/2024 Encounter Details Date Type Department Care Team (Late st Contact Info) Description 08/19/2024 Telephone [facility] - [facility] #2 [place] [address] Justen Gale MD [address] [address] Advice Only; Follow-up Social History Tobacco Use [...] 07/23 [facility] - Occupational Stress Questionnaire Answer Date Recorded [...] any time in the past 12 m [facility], were you homeless or living in [...] visit * Telephone Encounter - Angelito Alegria, CORK PRESSING MACHINE OPERATOR, NATURAL RESOURCE ECONOMIST - 08/19/2024 9:04 AM CDT Forwarding * Telephone Encounter - Isaura Weiss RN - 08/19/2024 8:37 AM CDT Situation: Strep throat follow up Background: Patient contacting PCP office. Patient was seen in ED on 08/09 and 08/12 in [place] (records in chart). Diagnosed with strep. Assessment: [...] CDT Symptom: Sore Throat Outcome: Transfer to pairer odds queue Reason: Caller denied all higher acuity questions The caller accepted this outcome. Caller Denied: * Struggling for each breath (severe trouble breathing) * Can't swallow saliva (drooling) documented in this encounter Plan of Treatment Upcoming Encounters Date Type Department Care Team (Late st Contact Info) Description 01/13/2025 2:45 PM CDT Office Visit [facility] UR[facility] #2 [place] [address] Pili Elkins APRN, NATURAL RESOURCE ECONOMIST #[address] [address] David Roberts APRN, NATURAL RESOURCE ECONOMIST #2 [place] [address] 01/21/2025 2:00 PM CDT [facility] 1 [place] [address] Annel Rod MD #[address] [address] Discharge Disposition: Discharged to home or Selfcare 03/19/2025 2:00 PM SHRIMP HEADER Office Visit [facility] Endocrinology [facility] #2 [place] [address] Annel Rod MD #[address] [address] 05/29/2025 1:30 PM SHRIMP HEADER Office Visit [facility] - Family Medicine [facility] #2 [place] [address] Justen Gale MD #[address] [address] documented as of this encounter Visit Diagnoses [...] End Date Justen Gale MD #[address] [address] PCP - General Family Medicine 6/26/18 David Roberts APRN, CNP #2 [place] [address] Nurse Practitioner Advanced Practice Nurse 01/31/22 Annel Rod MD [facility] [facility] [address] Consulting Physician Endocrinology 07/01/22 documented as of this encounter
--- OUTSIDE RECORDS SUMMARY | 2024-12-23 12:53 | XMS_ITS | Encounter Summary ---
Author Organization [facility] Address [address] [place] [address] Phone Care Team Providers Care Drug Abuse Program Coordinator Name Role Phone Justen Gale MD Primary Care Provider David Roberts APRN, LAWN CARETAKER Unavailable Annel Rod MD Unavailable Reason for Visit * Reason Comments Medication Refill Encounter Details Date Type Department Care Team (Late st Contact Info) Description 02/07/2020 Refill [facility] [address] [facility] [place] [address] Justen Gale MD #[address] [address] Medication Refill Social History Tobacco Use Types [...] Description 01/13/2025 2:45 PM CDT Office Visit [facility] UROLOGY #2 [place] [address] Pili Elkins APRN, LAWN CARETAKER #[address] [address] David Roberts APRN, LAWN CARETAKER #2 [place] [address] 01/21/2025 2:00 PM CDT Appointment [facility] Ultrasound 1 [place] [address] Annel Rod MD #[address] [address] Discharge Disposition: Discharged to home or Selfcare 03/19/2025 2:00 PM FREIGHT WEIGHER Office Visit [facility]ology - [place] #2 [place] [address] Annel Rod MD #[address] [address] 05/29/2025 1:30 PM FREIGHT WEIGHER Office Visit [facility] - Family [facility] #[address] [place] [address] Justen Gale MD #2 [address] [facility] [address] [place] [address] documented as of this encounter Visit Diagnoses Not on filedocumented in this encounter Additional Health Concerns Infection Onset Date Last Indicated Resolved Time COVID - 19 08/01/2024 08/01/2024 08/01/2024 3:20 PM CDT Respiratory Rule-Out 11/18/2024 11/18/2024 025 7:18 AM CDT Assessment Noted Time PHQ-9 Depression Total Score: 0 09/08/19 19 1:00 PM CDT documented as of this encounter Care Teams Drug Abuse Program Coordinator Relationship Specialty Start Date End Date Justen Gale MD [address] [address] PCP - General Family Medicine 10/17/17 David Roberts, DIGITAL SALES PLANNER, LAWN CARETAKER [address] [place] [address] Nurse Practitioner Advanced Practice Nurse 01/31/22 Annel Rod MD #[address] [address] Consulting Physician Endocrinology 07/01/22 documented as of this encounter
[2024-12-23 12:55] VITALS: PULSE 84
[2024-12-23 13:13] LABS: Hematocrit 38.5 % (37.0-47.0); Hemoglobin 11.8 g/dL (12.0-15.0); Immature Granulocyte Percent A 0.5 % (0-0.5); Lymphocytes Absolute Auto 2.31 K/mm3 (0.9-3.2); Mean Corpuscular HGB Conc 30.6 g/dl (32-36); Mean Corpuscular Hemoglobin 28.2 pg (26-34); Mean Corpuscular Volume 91.9 fl (80-100); Nucleated Red Blood Cells Absolute Auto 0.000 K/mm3 (0.0-0.012); Nucleated Red Blood Cells Perc 0.0 % (0.0-0.2); Platelet Count Result 264 k/mm3 (150-375); Red Blood Count 4.19 M/mm3 (4.2-5.4); White Blood Count 10.6 K/mm3 (4.5-10.0)
[2024-12-23 13:23] LABS: Alanine Aminotransferase 28 U/L (6-35); Albumin Level 3.9 g/dL (3.5-5.1); Alkaline Phosphatase 70 U/L (38-126); Anion Gap 7 mmol/L (4-12); Aspartate Amino Transferase 30 U/L (14-36); Bilirubin,Total 0.6 mg/dL (0.2-1.3); Blood Urea Nitrogen 19 mg/dL (7-17); Calcium 9.6 mg/dL (8.4-10.2); Carbon Dioxide 26 mmol/L (22-30); Chloride 105 mmol/L (98-107); Estimated CRCL calculation 84 ml/min; Estimated Glomerular Filt Rate > 60; Glucose 214 mg/dL (65-110); Potassium 4.0 mmol/L (3.4-5.0); Sodium 138 mmol/L (137-145); Total Protein 7.6 g/dL (6.3-8.2)
[2024-12-23 13:27] LABS: INR 1.3; Prothrombin Time 15.9 Seconds (11.1-14.7)
[2024-12-23 13:28] LABS: Partial Thromboplastin Time 29.0 Seconds (22.3-36.8)
[2024-12-23 13:35] LABS: NT Pro B Type Natriuretic Pept 97 pg/mL (19.9-100); Troponin I < 0.012 ng/mL (0.000-0.034)
--- NOTE | 2024-12-23 14:02 | ED.GENADULT ---
HPI - General Adult General Chief complaint: Shortness of Breath/Dyspnea Stated complaint: SOB, diagnosed with CHF Time Seen by Provider: 12/23/24 12:40 History of Present Illness HPI narrative: Patient is a 69-year-old female who presents ER with shortness of breath. Ongoing for 5 weeks, symptoms today are no better but also no worse than when the started. Worse with exertion. Recently diagnosed with CHF. Started on Lasix. She reports edema in her legs has gone down. Symptoms worsening with lying down as well. No productive cough. No fevers or chills or sweats. No exertional chest pain. Related Data Home Medications ?Medication ?Instructions ?Recorded ?Confirmed ?Last Taken ?Type exemestane 25 mg tablet 25 mg PO HS 01/06/20 11/16/24 11/15/24 History insulin glargine 100 unit/mL (3 50 unit subcut QAM 01/06/20 11/16/24 11/15/24 History mL) subcutaneous pen (Lantus Solostar U-100 Insulin) ropinirole 5 mg tablet 5 mg PO HS 01/06/20 11/16/24 11/15/24 History insulin lispro 100 unit/mL 32 unit subcut TID 03/19/22 11/16/24 11/15/24 History subcutaneous pen (Humalog KwikPen (U-100) Insulin) oxybutynin chloride 15 mg 15 mg PO DAILY 11/06/22 11/16/24 11/15/24 History tablet,extended release 24 hr gabapentin 300 mg capsule 300 mg PO TID 06/25/23 11/16/24 11/15/24 History prednisone 10 mg tablet 10 mg PO DAILY 10/08/24 11/16/24 11/15/24 History rivaroxaban 20 mg tablet (Xarelto) 20 mg PO 0900 10/08/24 11/16/24 11/15/24 History Allergies Allergy/AdvReac Type Severity Reaction Status Date / Time ceftriaxone Allergy Severe SOB Verified 12/23/24 12:44 cephalexin Allergy Severe Difficulty Verified 12/23/24 12:44 Breathing Cephalosporins Allergy Severe Difficulty Verified 12/23/24 12:44 Breathing lorazepam Allergy Severe Swelling Verified 12/23/24 12:44 trazodone Allergy Severe Swelling Verified 12/23/24 12:44 of Lip/Tongue/Throat metoclopramide Allergy Intermediate Other Verified 12/23/24 12:44 azithromycin Allergy Mild Itching Verified 12/23/24 12:44 chlorhexidine Allergy Mild BLISTERING Verified 12/23/24 12:44 levofloxacin Allergy Mild Hives / Verified 12/23/24 12:44 Red Face ketorolac Allergy Itching Verified 12/23/24 12:44 latex Allergy Rash Verified 12/23/24 12:44 meropenem Allergy Rash Verified 12/23/24 12:44 nitrofurantoin Allergy Itching Verified 12/23/24 12:44 piperacillin Allergy Rash Verified 12/23/24 12:44 reslizumab Allergy Hives Verified 12/23/24 12:44 trimethoprim (From Allergy Itching Verified 12/23/24 12:44 Sulfamethoxazole-Trimethoprim) sulfamethoxazole (From AdvReac Severe Anaphylaxis Verified 12/23/24 12:44 Sulfamethoxazole-Trimethoprim) clindamycin AdvReac Intermediate Nausea and Verified 12/23/24 12:44 Vomiting doxycycline AdvReac Mild Itching Verified 12/23/24 12:44 oxycodone AdvReac Mild Vomiting Verified 12/23/24 12:44 amlodipine AdvReac Swelling Verified 12/23/24 12:44 lisinopril AdvReac Swelling Verified 12/23/24 12:44 pregabalin AdvReac Swelling Verified 12/23/24 12:44 Review of Systems Review of Systems: All systems reviewed & are unremarkable except as noted in HPI and below Constitutional: Constitutional: Reports no additional constitutional complaints ENT: Reports system reviewed and no additional complaints, except as documented Cardiovascular: Cardiovascular: Reports no additional cardiovascular complaints Respiratory: Respiratory: Reports no additional respiratory complaints Gastrointestinal: Gastrointestinal: Reports no additional gastrointestinal complaints [facility] Past Medical History Medical History Polymyositis with myopathy Gastroparesis Obstructive sleep apnea on CPAP Restless leg syndrome Pulmonary embolism positive for coagulation workup Deep venous thrombosis Type 2 diabetes mellitus Throat pain in adult Oral ulcer Chronic anticoagulation Overactive bladder Irritable bowel syndrome Congestive heart failure Chronic back pain Collagenous colitis Morbid obesity Breast cancer Depression Anxiety Peripheral neuropathy Kidney stone Multiple thyroid nodules Surgical History Surgical History History of umbilical hernia repair History of colonoscopy Status post insertion of spinal cord stimulator History of cystoscopy History of ureter stent History of cholecystectomy History of bilateral mastectomy History of esophagogastroduodenoscopy (EGD) History of right oophorectomy History of total right knee replacement History of cardiac catheterization Reportedly negative for coronary artery disease. Family History Family History Mother Diabetes mellitus Acute myocardial infarction Congestive heart failure Hypertension Cerebrovascular accident Coronary artery disease Father Prostate carcinoma Sibling Acute myocardial infarction Breast cancer Chronic obstructive pulmonary disease Social History Social History Social History: Surrogate medical decision maker: Jimmie Marques, spouse. (Previously listed though she reports being now) Code status: Full code. Smoking packs per day: 0 Smoking cigarettes per day: 0.0 Years smoked: 2 Smoking pack-years: 0.00 Smoking status: Never smoker Second hand tobacco smoke exposure: Yes Alcohol intake: never Substance use: never Substance use type: does not use Do You Feel Safe in your Home?: Yes Lack of Transportation: YES Lack of Food: Never True Current Housing: I Have Housing Concerned About Future Housing: No Difficulty Paying Gas/Electric Bills: No Difficulty Paying for Meds: No Currently Unemployed: No Education: Associate Degree Difficulty w/ Childcare or Family Care: No Living arrangements: with family Additional living arrangements comments: daughter Additional occupation/education comments: Disabled. Spiritual care concerns: No Exam Narrative: GENERAL: Well-appearing, obese, and in no acute distress. HEAD: Normocephalic, atraumatic. ENT: Mucous membranes moist. NECK: Supple. CHEST: Clear to auscultation. No respiratory distress. HEART: Regular rate and rhythm. Normal peripheral pulses. ABDOMEN: Soft, nontender, nondistended. EXTREMITIES: Normal range of motion. 1+ edema. SKIN: Warm, dry, no rash. NEURO: Alert and oriented x3. PSYCH: Normal mood and affect. Course Course Emergency Course: White blood cell count and hemoglobin at baseline. All other labs are within normal limits with exception of glucose of 214. No hypoxia. No abnormal lung sounds. Patient denying infectious symptoms. Chest x-ray felt more likely represent atelectasis than pulmonary edema or pneumonia. Discharge home. Vital Signs Vital signs: Vital Signs Temperature 98 F 12/23/24 12:45 Pulse Rate 91 12/23/24 12:45 Respiratory Rate 12/23/24 12:45 Blood Pressure 159/84 H 12/23/24 12:45 Pulse Oximetry 98 12/23/24 12:45 Oxygen Delivery Room Air 12/23/24 12:45 Temperature 98 F 12/23/24 12:45 Pulse Rate 84 12/23/24 12:55 Respiratory Rate 19 12/23/24 12:45 Blood Pressure 159/84 H 12/23/24 12:45 Pulse Oximetry 100 12/23/24 12:52 Oxygen Delivery Room Air 12/23/24 12:52 Medical Decision Making Vital Signs Vital Signs: Vital Signs Temperature 98 F 12/23/24 12:45 Pulse Rate 91 12/23/24 12:45 Respiratory Rate 12/23/24 12:45 Blood Pressure 159/84 H 12/23/24 12:45 Pulse Oximetry 98 12/23/24 12:45 Oxygen Delivery Room Air 12/23/24 12:45 Temperature 98 F 12/23/24 12:45 Pulse Rate 84 12/23/24 12:55 Respiratory Rate 12/23/24 12:45 Blood Pressure 159/84 H 12/23/24 12:45 Pulse Oximetry 100 12/23/24 12:52 Oxygen Delivery Room Air 12/23/24 12:52 Lab Data 12/23/24 13:03 12/23/24 13:02 Labs: Lab Results 12/23/24 12/23/24 Range/Units 13:02 13:03 WBC 10.6 H (4.5-10.0) K/mm3 RBC 4.19 L (4.2-5.4) M/mm3 Hgb 11.8 L (12.0-15.0) g/dL Hct 38.5 (37.0-47.0) % MCV 91.9 (80-100) fl MCH 28.2 (26-34) pg MCHC 30.6 L (32-36) g/dl RDW 13.6 (11.5-14.5) % Plt Count 264 (150-375) k/mm3 MPV 9.8 (7.4-10.4) fl Immature Gran % (Auto) 0.5 (0-0.5) % Neut % (Auto) 67.6 (45.5-73.1) % Lymph % (Auto) 21.7 (18.3-44.2) % Coleman % (Auto) 7.0 (2.6-8.5) % Eos % (Auto) 2.7 (0-4.4) % Baso % (Auto) 0.5 (0.2-1.2) % Lymph # (Auto) 2.31 (0.9-3.2) K/mm3 Coleman # (Auto) 0.7 H (0.1-0.6) K/mm3 Eos # (Auto) 0.3 (0-0.3) K/mm3 Baso # (Auto) 0.1 (0.0-0.1) K/mm3 Abs Immat Gran (auto) 0.05 H (0.00-0.031) K/mm3 Absolute Neuts (auto) 7.2 H (1.3-6.7) K/mm3 Absolute Nucleated RBC 0.000 (0.0-0.012) K/mm3 Nucleated RBC % 0.0 (0.0-0.2) % PT 15.9 H (11.1-14.7) Seconds INR 1.3 APTT 29.0 (22.3-36.8) Seconds Sodium 138 (137-145) mmol/L Potassium 4.0 (3.4-5.0) mmol/L Chloride 105 (98-107) mmol/L Carbon Dioxide 26 (22-30) mmol/L Anion Gap 7 (4-12) mmol/L BUN 19 H (7-17) mg/dL Creatinine 0.70 (0.7-1.0) mg/dL Estim Creat Clear Calc 84 ml/min Estimated GFR > 60 (59 - ) Glucose 214 H (65-110) mg/dL Calcium 9.6 (8.4-10.2) mg/dL Total Bilirubin 0.6 (0.2-1.3) mg/dL AST 30 (14-36) U/L ALT 28 (6-35) U/L Alkaline Phosphatase 70 (38-126) U/L Troponin I < 0.012 (0.000-0.034) ng/mL NT-Pro-B Natriuret Pep 97 (19.9-100) pg/mL Total Protein 7.6 (6.3-8.2) g/dL Albumin 3.9 (3.5-5.1) g/dL Imaging Data Radiologist's impression: ITS Impressions Chest X-Ray 12/23/24 13:19 IMPRESSION: 1. Mild opacities at the dependent posterior lung bases which could represent atelectasis, mild pulmonary edema or pneumonia. ECG Data EKG #1: ECG completion date: 12/23/24 ECG completion time: 12:41 EKG Interpretation: normal rate (87), sinus rhythm, PACs, normal QRS and NL axis Discharge Plan Discharge Clinical Impression: Dyspnea Patient Disposition: Home Condition: Stable Instructions: Dyspnea (ED) Additional Instructions: Please return to the emergency department if you develop severe and persistent chest pain, difficulty breathing, dizziness, leg swelling or if you are coughing up blood as these can be signs of a medical emergency. Please call your doctor for a follow up appointment to determine the need for further testing. Patient Language: Ugandan Prescriptions: No Action gabapentin 300 mg capsule 300 mg PO TID exemestane 25 mg tablet 25 mg PO HS ropinirole 5 mg tablet 5 mg PO HS insulin glargine [Lantus Solostar U-100 Insulin] 100 unit/mL (3 mL) insulin pen 50 unit SUBCUT QAM insulin lispro [Humalog KwikPen Insulin] 100 unit/mL insulin pen 32 unit SUBCUT TID Patient Comments: PATIENT EXPERIENCES LOW BLOOD SUGAR IN THE HOSPITAL albuterol sulfate 90 mcg/actuation HFA aerosol inhaler 1 inh inhalation QID PRN (Reason: shortness of breath or wheezing) Qty: 6.7 0RF oxybutynin chloride 15 mg tablet extended release 24hr 15 mg PO DAILY ondansetron 4 mg tablet,disintegrating 4 mg PO Q8H PRN (Reason: nausea and vomiting) Qty: 10 0RF lidocaine 5 % ointment 1 applic topical TID PRN (Reason: skin irritation) Qty: 50 0RF prednisone 10 mg tablet 10 mg PO DAILY Xarelto 20 mg tablet 20 mg PO 0900 pantoprazole [Protonix] 40 mg tablet,delayed release (DR/EC) 40 mg PO BID 30 Days Qty: 60 0RF hydrocodone-acetaminophen 10-325 mg tablet 1 tablet PO Q6H PRN (Reason: pain (scale score 7-10)) 5 Days Qty: 10 0RF furosemide [Lasix] 20 mg tablet 20 mg PO DAILY Qty: 30 0RF Follow-up/Referrals: Shahla,Justen Spicer MD [Primary Care Provider] - 1 Week
[2024-12-23 14:51] VITALS: BP 135/58; PULSE 80; RESP 16; O2SAT 97
== END 2024-12-23 15:00 | disposition home or self-care (01) ==
PROVIDERS: Emergency Provider Emergency Medicine; PCP Internal Medicine
DX: R06.00 Dyspnea, unspecified (principal); G47.30 Sleep apnea, unspecified; G25.81 Restless legs syndrome; Z86.711 Personal history of pulmonary embolism; E11.9 Type 2 diabetes mellitus without complications; Z79.01 Long term (current) use of anticoagulants; I50.9 Heart failure, unspecified; F32.A Depression, unspecified; F41.9 Anxiety disorder, unspecified; Z87.442 Personal history of urinary calculi; Z79.4 Long term (current) use of insulin
CPT/HCPCS: 36415; 71046; 80053; 83880; 84484; 85025; 85610; 85730; 93005; 99284

== ENCOUNTER 2024-12-28 21:17 | Emergency (ER) | payer MEDICARE, MEDICAID, SELFPAY ==
--- OUTSIDE RECORDS SUMMARY | 2024-12-28 21:20 | XMS_ITS ---
Author Organization [facility] Address [address] [place] [id number] Care Team Providers Care Corrections Counselor Name Role Phone Liu Jerez MD Unavailable Albert Corbin MD Unavailable Justen Gale MD Primary Care Provider Khris Arthur MD Unavailable [phone] Ko Melendez MD Unavailable John Paul Moyer MD Unavailable [phone] Annel Rod MD Unavailable Anali MARSHALL MD, [...] 05/22/2024 Assessment & Plan (05/26/2024 10:08 AM PROTOTYPE ENGINEER): Presenting with urinary symptoms of right [...] 05/22/2024 Assessment & Plan (05/25/2024 7:52 AM PROTOTYPE ENGINEER): Hx of breast cancer c/b DVT/bilateral [...] 05/22/2024 Assessment & Plan (05/22/2024 1:14 PM PROTOTYPE ENGINEER): -long-standing chronic back pain -CT L [...] long-term current use of insulin ([facility]) 10/23/2017 Assessment [...] 10/13/2017 Assessment & Plan (05/22/2024 12:29 PM PROTOTYPE ENGINEER): -Hx stage II, ER positive, HER2 [...] 08/01/2017 Assessment & Plan (05/22/2024 12:33 PM PROTOTYPE ENGINEER): -Hx LUL -Hospital provided CPAP ordered History of DVT (deep vein thrombosis) 08/01/2017 History of pulmonary embolism 08/01/2017 Generalized weakness 07/27/2017 Dyspnea 07/27/2017 Unintentional weight loss 07/27/2017 Acute cystitis without hematuria 07/27/2017 Nausea and vomiting 07/26/2017 Overview (07/28/2017): Added automatically from request for surgery [id number] Pulmonary embolism 08/09/2016 Assessment & Plan (10/23/2017 2:05 AM CDT): On Rivaroxaban Lymphedema of left upper extremity 08/09/2016 Assessment & Plan (05/25/2024 7:53 AM PROTOTYPE ENGINEER): S/p L axillary lymph node dissection [...] syndrome Assessment & Plan (05/22/2024 11:18 AM PROTOTYPE ENGINEER): -continue home Requip 5mg nightly Pain of lower extremity 03/12/2013 Overview (07/29/2016): Leg pain Essential hypertension Assessment & Plan (05/23/2024 10:42 AM PROTOTYPE ENGINEER): -Chart history of HTN but not on meds -BP elevated on admission, likely some pain contributing -Monitor closely once pain under adequate control, discussed following up with PCP for this Chronic anticoagulation Restless leg syndrome 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 Type 2 diabetes mellitus without complication Assessment & Plan (05/24/2024 1:39 PM PROTOTYPE ENGINEER): -Last Ha1c 8.4 in 2023, repeat [...]
--- OUTSIDE RECORDS SUMMARY | 2024-12-28 21:21 | XMS_ITS | Clinical Summary ---
Author Organization [facility] Address [address] [place] [address] Care Team Providers Care Interior Design Coordinator Name Role Phone Justen Gale MD Primary Care Provider [phone] Source Comments [facility] Affiliates and Associated Physician Practices is amultiple site organization consisting of ambulatory clinics and hospital sitesin [place], [place], [place] and [place]. This disclosure is being madepursuant to the Care Everywhere program and may not contain all information available regarding this patient. Last updated 18.[facility] [employer] Allergies Active Allergy Reactions Criticality Noted Date [...] Gluc Sensor (FreeStyle Eileen 2 Sensor Systm) [facility] APPLY 1 SENSOR AND WEAR FOR 14 [...] medical care, and heating? Somewhat hard 05/16/2023 [facility] [place] [facility] - Occupational [...] on file Legal Sex Female 6:53 PM SHAREPOINT APPLICATION DEVELOPER Gender Identity Not on file Sexual [...] SCREENING 10/04/2021 DIABETES-FOOT EXAM WITH MONOFILAMENT 10/04/2021 DEPRESSION SCREENING 04/24/2024 DIABETES - URINE PROTEIN SCREENING 04/24/2024 09/11/2021 MEDICARE AWV CALENDAR YEAR 2024 DIABETES-HGB A1C 08/19/2024 05/21/2024, , 05/30/2023, Additional history exists COVID-19 VACCINE ( - 2024- season) 2024 05/04/2021, 06/29/2020 INFLUENZA VACCINE (#1) 2024 , 01/17/2023, 01/03/2022, [...] this topic Medical Devices Implanted Type Area Senior Director Of Strategy Device Identifier Shelf Expiration Date Model / Serial / Lot Lead Nrstm 60cm Penta 3mm Pdl 16 Chnl Implanted:Qt y: 1 on 09/16/2021 by Maxi Gregg MD at [facility] Right: Spine Thoracic Advanced [employer] [id number] / / Description:CAMILO Slnt Dura Duraseal Pg Trilysine Amine 5 Implanted:Qt y: 1 on 09/16/2021 by Maxi Gregg MD at [facility] Right: Spine Thoracic Integra [employer] David [id number] / / Description:CAMILO Proclaim Plus 5 Implanted:Qt y: 1 on 02/16/2023 by Maxi Gregg MD at [facility] Left: Back Cardenas Spine [id number] 11/07/2024 [id number] / [id number] / Explanted Type Area Senior Director Of Strategy Device Identifier Shelf Expiration Date Model / Serial / Lot Gntr Nrstm 1.95inx2.19in Proclaim Elt Implanted:Qty: 1 on 09/16/2021 by Maxi Gregg MD at [facility] Explanted:Qty: 1 on 10/30/2021 by Maxi Gregg MD at [facility] Right: Spine Thoracic [facility] [place] [...] COMPREHENSIVE METABOLIC PANEL (08/09/2024 1:40 PM CDT) [facility] Glucose 212(H) 70 - 99 mg/dL 08/09/2024 2:09 PM CDT [facility] Sodium 136 136 - 145 mmol/L 08/09/2024 2:09 PM CDT [facility] Potassium 3.9 3.5 - 5.1 mmol/L 08/09/2024 2:09 PM CDT [facility] Chloride 103 98 - 107 mmol/L 08/09/2024 2:09 PM CDT [facility] CO2 24 22 - 29 mmol/L 08/09/2024 2:09 PM CDT [facility] Calcium 9.4 8.4 - 10.4 mg/dL 08/09/2024 2:09 PM T [facility] Anion Gap 9 6 - 16 mmol/L 08/09/2024 2:09 PM CDT [facility] BUN 19 7 - 26 mg/dL 08/09/2024 2:09 PM T [facility] Creatinine 0.82 0.57 - 1.11 mg/dL 08/09/2024 2:09 PM [facility] Alkaline Phosphatase 68 40 - 150 U/L 08/09/2024 2:09 PM T [facility] ALT 22 6 - 57 U/L 08/09/2024 2:09 PM T [facility] AST 23 10 - 48 U/L 08/09/2024 2:09 PM [facility] Protein Total 8.0 6.4 - 8.3 gm/dL 08/09/2024 2:09 PM T [facility] Albumin 3.3(L) 3.4 - 5.0 gm/dL 08/09/2024 2:09 PM T [facility] Bilirubin Total 0.9 0.2 - 1.2 mg/dL 08/09/2024 2:09 PM [facility] eGFR by CKD-EPI 78(L) >=90 mL/min/1.7 3 m2 08/09/2024 2:09 PM [facility] Blood BLOOD SPECIMEN / Unknown Venipuncture / Unknown 08/09/2024 1:40 PM CDT 08/09/2024 1:43 PM T us Josué Bernal PA-C LAB - CHEMISTRY ORDERABLE S Final Result [facility] [address] [place] [address] * HEPATITIS C AB SCREEN RFLX NAAT QUANT (02/21/2023 6:30 PM CDT) Hepatitis C Antibody Non-react hugh Non-reac tive 02/21/2023 7:32 PM CDT [facility] Comment:Hepatitis C Antibody screen [...] MD LAB - CHEMISTRY ORDERABLES nal Result [facility] [address] [place] [id number], [facility] [phone] * (ABNORMAL) HEMOGLOBIN A1C (12/25/2022 3:56 AM CDT) Pathologist [facility] Hemoglobin A1c 8.6(H) <=5.6 % 12/25/2022 2:47 PM CDT [facility] Estimated Average Glucose 200 mg/dL 12/25/2022 2:47 PM CDT [facility] Comment: HbA1c Interpretation: Normal : < 5.7% Pre-diabetes: 5.7-6.4% Diabetes: Equal to or greater than 6.5% Test results diagnostic of diabetes should be repeated for confirmation. Treatment target values recommended by ADA and other clinical organizations should be used to evaluate metabolic control in patients. Reference: [place] Diabetes Association, Standards of Care in Diabetes -2020 In patients 70 years and older consider HbA1c target range of 7.0-7.5% (Reference: Travis tSorey et al. JAMDA. 2012) The Sebia assay for the measurement of HbA1c is a National Glycohemoglobin Standardization Program (NGSP) certified method. Blood BLOOD SPECIMEN / Unknown Lab Venipuncture / Unknown 12/25/2022 3:56 AM CDT 12/25/2022 4:30 AM CDT Jerrod Rodriguez MD LAB - CHEMISTRY RUSS VIZCARRA Final Result [id number] [place] [address], [facility] [phone] from Last 3 Months or Most Recently Relevant to Health Maintenance Insurance [facility] MANAGED MEDICARE ADV [address], [place] [id number] [facility] MANAGED MEDICARE [facility] MEDICA[facility] - [place] Advance Directives * [...] 3:37 AM 03/23/2023 7:14 PM Care Teams Interior Design Coordinator Relationship Specialty Start Date End Date Justen Gale MD PCP - General 07/05/21
--- OUTSIDE RECORDS SUMMARY | 2024-12-28 21:21 | XMS_ITS | Encounter Summary ---
Author Organization [facility] Address [address] [place] [address] Phone Care Team Providers Care Process Engineering Manager Name Role Phone Justen Gale MD Primary Care Provider David Roberts APRN, LABORATORY TECHNOLOGY TEACHER Unavailable [phone] Annel Rod MD Unavailable Reason for Visit * Reason Comments Medication Refill Encounter Details Date Type Department Care Team (Late st Contact Info) Description 03/02/2023 Refill [facility] [address] [place] [id number] Justen Gale MD [address] [address] Medication Refill Social History Tobacco Use Types [...] Tamika Villarreal RN - 03/02/2023 8:51 AM CUTTER OPERATOR ASBESTOS SHINGLE Medication failed the protocol, provider to review [...] Office Visit Catrina Quiñonez MD [facility] 09/16/22 Office Visit Pili Elkins APRN, CNP [facility] 07/05/22 Office Visit Pili Elkins APRN, CNP [place] 05/02/22 Office Visit Justen Gale MD [facility] 03/03/22 Office Visit Pili Elkins APRN, NETTA [facility] Showing recent visits within past 365 days and meeting all other requirements Future Appointments No visits were found meeting these conditions. Showing future appointments within next 90 days and meeting all other requirements ER OPERATOR ASBESTOS SHINGLE documented in this encounter Plan of Treatment Upcoming Encounters Date Type Department Care Team (Late st Contact Info) Description 01/13/2025 2:45 PM CDT Office Visit [facility] [address] [place] [address] Pili Elkins APRN, LABORATORY TECHNOLOGY TEACHER [address] [address] David Roberts APRN, LABORATORY TECHNOLOGY TEACHER [address] [place] [address] 01/21/2025 2:00 PM CDT [facility]ointment [facility] [address] [place] [address] Annel Rod MD #[address] [address] Discharge Disposition: Discharged to home or Selfcare 03/19/2025 2:00 PM CUTTER OPERATOR ASBESTOS SHINGLE Office Visit [facility] - Endocrinology [facility] [address] [place] [address] Annel Rod MD #[address] [address] 05/29/2025 1:30 PM CUTTER OPERATOR ASBESTOS SHINGLE Office Visit [facility] - Family Medicine [facility] [address] [place] [address] Justen Gale MD #[address] [address] documented as of this encounter Visit Diagnoses Not on filedocumented in this encounter Additional Health Concerns Infection Onset Date Last Indicated Resolved Time COVID - 19 08/01/2024 08/01/2024 08/01/2024 3:20 PM CDT Respiratory Rule-Out 11/18/2024 11/18/2024 025 7:18 AM CDT Assessment Noted Time PHQ-9 Depression Total Score: 8 01/18/20 23 2:24 PM CDT documented as of this encounter Care Teams Process Engineering Manager Relationship Specialty Start Date End Date Justen Gale MD #[address] [address] PCP - General Family Medicine 10/17/17 David Roberts APRN, NETTA [address] [place] [address] Nurse Practitioner Advanced Practice Nurse 01/31/22 Annel Rod MD #2 [facility] [address] [place] [address] Consulting Physician Endocrinology 07/01/22 documented as of this encounter
--- OUTSIDE RECORDS SUMMARY | 2024-12-28 21:21 | XMS_ITS | Clinical Summary ---
Author Organization [facility] Address [facility] [place] [address] Care Team Providers Care Rn Admissions Name Role Phone Meena Bansal MD Unavailable Justen Gale MD Primary Care Provider [phone] Allergies Active Allergy Reactions Criticality Noted Date [...] tumor of breast ([facility]) 08/22 Knee pain 09/05/2020 Other [...] 03/18/2018 Assessment & Plan (03/18/2018 2:55 AM MAINFRAME PROGRAMMER ANALYST): Acute, patient reported as epigastric pain however may be atypical presentation. Troponins negative x2. Also in differential is GERD, PUD - Admit to observation -Follow-up troponins -Monitor vitals -N.p.o. at midnight - Stress echo in a.m. - Consider cardiology consult based on results of stress test -Begin Protonix Epigastric pain 03/18/2018 Assessment & Plan (03/18/2018 5:39 AM MAINFRAME PROGRAMMER ANALYST): Acute, non radiating, worsens with lying down, [...] vascular accident) ([facility] HHS/ C) 01/24/2018 Neck pain on right side 12/01/2017 Anxiety and depression 11/12/2017 Chronic anticoagulation 11/09/2017 Constipation 11/09/2017 Uncontrolled type 2 diabetes mellitus with hyperglycemia, with long-term current use of insulin ([facility]) 11/06/2017 oil heaterman (current) use 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 [...] left female breast ([facility]/HCC) 10/17/2017 Assessment & Plan (08/31/2018 12:24 AM CDT): S/p masectomy. -continue exemestane Acute deep vein thrombosis ( DVT) of proximal vein of right lower extremity ([facility]) 10/17/2017 Dysuria 10/17/2017 Hyperthyroidism 10/17/2017 Cancer of overlapping sites of left female breast ([facility]) 10/13/2017 Syncope 09/29/2017 High blood pressure 08/22/2017 Overview (09/05/2020): Last Assessment & Plan: On lisinopril Last Assessment & Plan: On lisinopril Assessment & Plan (08/30/2018 9:57 PM CDT): Chronic. Controlled. -continue home medications Assessment & Plan (03/18/2018 2:51 AM MAINFRAME PROGRAMMER ANALYST): Chronic, BPs currently 127/78 - To new home meds Morbid obesity with BMI of 50.0-59.9, adult 04/2017 Sepsis ([facility]) 08/22/2017 Type 2 diabetes mellitus ([facility]) 08/22 Overview (09/05/2020): Last Assessment & Plan: Hold janument. Start on SSI and accucheks Assessment & Plan (08/30/2018 10:01 PM CDT): Chronic. Controlled. -continue home insulin regimen of lantus 50 units q am -lispro 20 units with breakfast and lunch. 22 units with dinner. Assessment & Plan (03/18/2018 2:53 AM MAINFRAME PROGRAMMER ANALYST): Chronic, patient reports medical compliance with 50 units of Lantus daily and 15 units of Humalog before meals. No recent HbA1c - Monitor POC glucose -[place] home regimen - Consider sliding scale insulin -Follow-up HbA1c Bronchitis 08/20/2017 LUL (obstructive sleep apnea) 08/01/2017 Assessment & Plan (03/18/2018 2:54 AM MAINFRAME PROGRAMMER ANALYST): Chronic, on CPAP at home - Continue home CPAP History of DVT (deep vein thrombosis) 08/01/2017 Assessment & Plan (03/18/2018 2:54 AM MAINFRAME PROGRAMMER ANALYST): Chronic - Continue home Xarelto Chest pressure 08/01/2017 Diet-controlled diabetes mellitus ([facility] HHS/H CC) 08/01/2017 History of pulmonary embolism 08/01/2017 Hyponatremia 08/01/2017 Positive blood culture 08/01/2017 Acute pharyngitis 07/27/2017 Generalized weakness 07/27/2017 Nausea and vomiting 07/26/2017 Overview (09/05/2020): Overview: Overview: Added automatically from request for surgery [id number] Overview: Added automatically from request for surgery [id number] Added automatically from request for surgery [id number] Neuropathy 07/05/2017 History of breast cancer 02/06/2017 Pulmonary embolism ([facility]) 08/09/2016 Overview (09/05/2020): Last Assessment [...] syndrome Assessment & Plan (03/18/2018 2:54 AM MAINFRAME PROGRAMMER ANALYST): Chronic -Continue home ropinirole Pain of lower [...] drink = 0.6 oz pur e alcohol) [facility] Utilities Answer Date Recorded In the past 12 months has [employer] gas, oil, or water [employer] threatened to shut off services in your [...] Sexual Orientation Straight 03/18/2018 3: 01 AM MAINFRAME PROGRAMMER ANALYST Last Filed Vital Signs Vital Sign Reading [...] 09/10/2014, 5 Annual Medicare Wellness Visit 2021 [facility] LDL 10/13/2024 10/14/2023, 11/02/2016 Lipid Panel 10/13/2024 10/14/2023, 03/26, 09/28/2017, Additional history exists Hemoglobin A1C 11/18/2024 05/21/2024, 09/23, 08/14/2023, Additional history exists COVID-19 Vaccine (2 - season) 2024 06/29/2020 DTaP, Tdap and Td Vaccines (2 - [...] AM CDT [facility] Comment: ADA GUIDELINES 2010 5.7 TO 6.4% INCREASED RISK OF DIABETES > OR = 6.5% CONSISTENT WITH DIABETES ESTIMATED AVG GLUCOSE 183 mg/dL 10/14/2023 5:50 AM CDT [facility] 10/14/2023 3:40 AM CDT us Peggy Bland MD LABORATORY Final Result [facility] [address] [place] [address], [place] [phone] * LIPID PANEL (10/14/2023 3:40 AM CDT) CHOLESTEROL 164 <200 MG/DL 10/14/2023 4:31 AM CDT [facility] TRIGLYCERIDES 114 <150 MG/DL 10/14/2023 4:31 AM CDT [facility] HDL 46 >40.0 MG/DL 10/14/2023 4:31 AM CDT [facility] LDL (CALCULATED) 95 <100 MG/DL 10/14/19 4:31 AM CDT [facility] NON HDL CHOLESTEROL 118 <130 MG/DL 10/13 4:31 AM T [facility] CHOL/HDL RATIO 3.6 0.0 - 4.5 10/14/2023 4:31 AM T [facility] VLDL CALCULATION 23 5 - 55 MG/DL 10/14/2023 4:31 AM CDT [facility] LIPID INTERPRETATION 10/14/2023 4:31 AM T [facility] Comment: NIH CONCENSUS REPORT RECOMMENDATIONS: ADULT [...] Final Result [facility] [address] [place] [address], from Last 3 Months or Most Recently Relevant to Health Maintenance Insurance [facility] [id number] [facility] Advance Directives * Full [...] 2:42 AM 03/18/2018 4:50 PM Care Teams Rn Admissions Relationship Specialty Start Date End Date Justen Gale MD [address] [address] PCP - General FAMILY PRACTICE 08/20/17 Meena Bansal MD [address] [facility] [address] [place] [address] [employer] CARDIOVASCULAR DISEASE 04/24/16
--- OUTSIDE RECORDS SUMMARY | 2024-12-28 21:21 | XMS_ITS | Encounter Summary ---
Author Organization [facility] Address [address] [place] [address] Phone Care Team Providers Care Bull Gang Supervisor Name Role Phone Justen Gale MD Primary Care Provider David Roberts APRN, MANUFACTURING PLANT CONTROLLER Unavailable [phone] Annel Rod MD Unavailable Reason for Visit * Reason Comments Medication Refill Encounter Details Date Type Department Care Team (Late st Contact Info) Description 07/06/2023 Refill [facility] [address] [place] [phone] Justen Gale MD [address] [address] Medication Refill Social History Tobacco Use Types [...] Dept 06/27/23 Office Visit Justen Gale MD [facility] [place] 01/17/23 Office Visit Catrina Quiñonez MD [facility] [place] Showing recent visits within past 270 [...] Visit [facility] [address] [place] [phone] Pili Elkins APRN, MANUFACTURING PLANT CONTROLLER [address] [phone] David Roberts APRN, MANUFACTURING PLANT CONTROLLER [address] [place] [address] 01/21/2025 2:00 PM CDT [facility] [address] [place] [address] Annel Rod MD [address] [place] [phone] Discharge Disposition: Discharged to home or Selfcare 03/19/2025 2:00 PM CO FOUNDER & CEO Office Visit [facility] - Endocrinology - [place] [address] [facility] [place] [address] Annel Rod MD [address] [place] [address] 05/29/2025 1:30 PM CO FOUNDER & CEO Office Visit [facility] - Family Medicine [facility] [address] [place] [address] Justen Gale MD [address] [place] [address] documented as of this encounter Visit Diagnoses Not on filedocumented in this encounter Additional Health Concerns Infection Onset Date Last Indicated Resolved Time COVID - 19 08/01/2024 08/01/2024 08/01/2024 3:20 PM CDT Respiratory Rule-Out 11/18/2024 11/18/2024 025 7:18 AM CDT Assessment Noted Time PHQ-9 Depression Total Score: 8 01/18/20 23 2:24 PM CDT documented as of this encounter Care Teams Bull Gang Supervisor Relationship Specialty Start Date End Date Justen Gale MD [address] [address] PCP - General Family Medicine 10/17/17 David Roberts APRN, NETTA [address] [place], [place] [phone] Nurse Practitioner Advanced Practice Nurse 01/31/22 Annel Rod MD [address] [facility] [address] Consulting Physician Endocrinology 07/01/22 documented as of this encounter
--- OUTSIDE RECORDS SUMMARY | 2024-12-28 21:21 | XMS_ITS | Encounter Summary ---
Author Organization [facility] Address [address] [place] [address] Phone Care Team Providers Care Electric Meter Reader Name Role Phone Justen Gale MD Primary Care Provider David Roberts APRN, SPACE SYSTEMS OPERATIONS SUPERINTENDENT Unavailable Annel Rod MD Unavailable Reason for Visit * Reason Comments Medication Refill Encounter Details Date Type Department Care Team (Late st Contact Info) Description 10/24/2022 Refill [facility] - Family Medicine [facility] [address] [place] [address] Pili Elkins APRN, SPACE SYSTEMS OPERATIONS SUPERINTENDENT [address] [phone] Medication Refill Social History Tobacco [...] [facility] [address] [place] [address] Pili Elkins APRN, SPACE SYSTEMS OPERATIONS SUPERINTENDENT #[address] [phone] David Roberts APRN, SPACE SYSTEMS OPERATIONS SUPERINTENDENT [address] [place] [address] 01/21/2025 2:00 PM CDT Appointment [facility] Ul[facility]ound [address] [place] [address] Annel Rod MD #[address] [address] Discharge Disposition: Discharged to home or Selfcare 03/19/2025 2:00 PM QUALITY CONTROL MANAGER Office Visit [facility] - Endocrinology [facility] [address] [place] [address] Annel Rod MD #[address] [address] 05/29/2025 1:30 PM QUALITY CONTROL MANAGER Office Visit [facility] - Family Medicine - [place] [address] [place] [address] Justen Gale MD [address] [place] [address] documented as of this encounter Visit Diagnoses [...] as of this encounter Care Teams Electric Meter Reader Relationship Specialty Start Date End Date Justen Gale MD #[address] [address] PCP - General Family Medicine 10/17/17 David Roberts, DYER AND WASHER, SPACE SYSTEMS OPERATIONS SUPERINTENDENT [address] [place] [address] Nurse Practitioner Advanced Practice Nurse 01/31/22 Annel Rod MD #[address] [address] Consulting Physician Endocrinology 07/01/22 documented as of this encounter
--- OUTSIDE RECORDS SUMMARY | 2024-12-28 21:21 | XMS_ITS | Clinical Summary ---
Author Organization [facility] Address [address] [place] [id number] Care Team Providers Care Laboratory Development Technician Name Role Phone Liu Jerez MD Unavailable Albert Corbin MD Unavailable Justen Gale MD Primary Care Provider Khris Arthur MD Unavailable [phone] Ko Melendez MD Unavailable John Paul Moyer [...] 05/22/2024 Assessment & Plan (05/26/2024 10:08 AM YIELD CLERK): Presenting with urinary symptoms of right [...] 3 doses q48 hours -Previously followed with [facility] Urology, but lost to follow up when her Urologist left the practice, outpatient urology follow up placed - good pain control w/Dilaudid, continue prn Venous thromboembolism (VTE) 05/22/2024 Assessment & Plan (05/25/2024 7:52 AM YIELD CLERK): Hx of breast cancer c/b DVT/bilateral [...] 05/22/2024 Assessment & Plan (05/22/2024 1:14 PM YIELD CLERK): -long-standing chronic back pain -CT L [...] 09/12/2021 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) 2021 USP (current) use 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 inhibitors 10/17/2019 Thyroid [...] current use of insulin ([facility]) 10/23/2017 Assessment & Plan (10/23/2017 2:06 [...] 10/13/2017 Assessment & Plan (05/22/2024 12:29 PM YIELD CLERK): -Hx stage II, ER positive, HER2 [...] 08/01/2017 Assessment & Plan (05/22/2024 12:33 PM YIELD CLERK): -Hx LUL -Hospital provided CPAP ordered History of DVT (deep vein thrombosis) 08/01/2017 History of pulmonary embolism 08/01/2017 Generalized weakness 07/27/2017 Dyspnea 07/27/2017 Unintentional weight loss 07/27/2017 Acute cystitis without hematuria 07/27/2017 Nausea and vomiting 07/26/2017 Overview (07/28/2017): Added automatically from request for surgery [id number] Pulmonary embolism 08/09/2016 Assessment & Plan (10/23/2017 2:05 AM CDT): On Rivaroxaban Lymphedema of left upper extremity 08/09/2016 Assessment & Plan (05/25/2024 7:53 AM YIELD CLERK): S/p L axillary lymph node dissection [...] syndrome Assessment & Plan (05/22/2024 11:18 AM YIELD CLERK): -continue home Requip 5mg nightly Pain of lower extremity 03/12/2013 Overview (07/29/2016): Leg pain Essential hypertension Assessment & Plan (05/23/2024 10:42 AM YIELD CLERK): -Chart history of HTN but not on meds -BP elevated on admission, likely some pain contributing -Monitor closely once pain under adequate control, discussed following up with PCP for this Chronic anticoagulation Restless leg syndrome 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 Type 2 diabetes mellitus without complication Assessment & Plan (05/24/2024 1:39 PM YIELD CLERK): -Last Ha1c 8.4 in 2023, repeat [...] Encounters Date Type Department Care Team Description 12/26/2024 [facility] Subsequent Outreach [facility] [address] [place] [phone] Janet Ba 12/20/2024 Orders Only [facility] Cardiology [address] [place] [phone] Laury Moore NP 12/18/2024 Telephone [facility] Medicine Oncology [address] [facility] Floor 8 [place] [address] [place], NURIS 12/17/2024 [facility] Subsequent Outreach [facility] [address] [place] [phone] Madelyn Cruz NP 12/17/2024 T[facility] Subsequent Outreach [facility] [address] [place] [phone] Madison Chadwick, [facility] 12/11/2024 3:16 PM CDT - 12/11/2024 9:03 PM CDT Emergency [facility] Emergency Department [address] [place] [phone] Shortness of breath (Primary Dx); Generalized weakness Discharge Disposition: Discharge to home or self care 12/10/2024 [facility] Subsequent Outreach [facility] [address] [place] [phone] Madison Chadwick, [facility] 12/07/2024 10:38 PM T - 12/08/2024 2:52 AM CDT Emergency [facility] Emergency Department [address] [place] [address] Gil Diez, Dehydration (Primary Dx) Discharge Disposition: Discharge to home or self care 12/06/2024 [facility] Initial Outreach [facility] [address] [place] [phone] Yunier Hernandez RN 12/03/2024 TCC Initial Eligibility Review [facility] [address] [place] [phone] Yunier Hernandez RN 12/02/2024 5:27 PM CDT - 12/05/2024 3:30 PM CDT Hospital Encounter [place] [address] Med [address] [place] [address] Patrick Rice DO Medavaram, Atul, MD Saravanan, [...] you attend chur ch or taoist services? More than 4 times per year 05/24/2024 Do you belong to any clubs o r organizations such as catholic groups, unions, fraternal or athletic groups, [...] in a half-way (including now)? No 08/15/2023 Housing Stability Vital [...] living in a half-way (including now)? No 05/24/2024 Social Connection and [...] you attend chur ch or taoist services? More than 4 times per year 12/03/2024 Do you belong to any clubs o r organizations such as catholic groups, unions, fraternal or athletic groups, [...] living in a half-way (including now)? No 12/03/2024 [facility] Utilities Answer Date Recorded [...] on file Legal Sex Female 12:24 AM YIELD CLERK Gender Identity Not on file Sexual [...] 01/23/2018, 01/24/20 18 Well Visit 65+ 2021 Osteoporosis Screening-Bone Density Scan 08/02/2024 08/02/2022, 11/10/2020, 05/15/2017 Covid-19 Vaccine (3 - 2024-2 6 season) 2024 05/04/2021, 06/29/2020 Influenza Vaccine (#1) 2024 , 01/03/2022, 05/04/2021, [...] ur Yellow Yellow Comment:Testing performed by : [address] [address] Clarity, ur Clear Clear MARY JANE Comment:Testing performed by : [address] [address] Specific gravity, ur 1.018 1.003 - 1.030 MARY JANE Comment:Testing performed by : [address] [address] pH, urine 6.5 MARY JANE Comment: Interpretive Data U rine pH is affected by diet, medications, systemic acid-base disturbances, and renal tubular function. pH may affect urinary stone formation. For example, urine pH below 6.0 may help reduce the tendency for calcium phosphate stones and pH greater than 6.0 may reduce the tendency for uric acid stone formation. Source: [facility] T-VIPS Current Interpretive Data was last revised on 2017 Testing performed by: [address] [address] Protein, ur ql Negative Negative MARY JANE Comment:Testing performed by : [address] [address] Glucose, ur ql Negative Negative MARY JANE Comment:Testing performed by : [address] [address] Ketones, ur Negative Negative MARY JANE Comment:Testing performed by : [address] [address] Bilirubin, ur Negative Negative MARY JANE Comment:Testing performed by : [address] [address] Blood, ur Negative Negative MARY JANE PHAM Comment:Testing performed by : [address] [address] Urobilinogen, ur <2.0 <2.0 mg/dL MARY JANE PHAM Comment:Testing performed by : [address], [place]., [address] Nitrite, ur Negative Negative MARY JANE PHAM Comment:Testing performed by : [address], [place]., [address] Leukocyte esterase, ur Negative Negative MARY JANE PHAM Comment:Testing performed by : [address], [place]., [address] UA reflex comment Reflex conditions for microscopic UA and culture not met. MARY JANE PHAM Comment:Testing performed by : [address], [place]., [address] Urine 12/11/2024 7:55 PM CDT 12/11/2024 7:58 PM CDT us Blaze Armenta NP LAB MICROBIOLOGY - GENERAL ORDER [place]O Final Result MARY JANE PHAM [facility] Department [place] [address] * (ABNORMAL) Troponin T high-sensitivity 4-hour (12/11/2024 6:58 PM CDT) Trop T hs 24(H) <=14 ng/L Comment: Interpretive Data For further hscTnT resources including the diagnostic algorithm and an aid in interpretation, copy and paste this link: https://nrl.testcatalog.org/show/hsTrop Current Interpretive Data last revised 2020. Testing performed by: [address] [address] Trop T hs delta -2 ng/L MARY JANE PHAM Comment:Testing performed by : [address], [place]., [address] Trop T hs interp Insignificant MARY JANE PHAM Comment:Testing performed by : [address], [place]., [address] Blood 12/11/2024 6:58 PM CDT 12/11/2024 7:03 PM CDT us Rosa Cruz PA LAB BLOOD ORDERABLES Final Resu lt Performing Organization Address [facility] [[email or web address]] Co de Phone Number [address] [address] * POCT glucose (12/11/2024 6:05 PM CDT) Glucose, POC 132 70 - 199 mg/dL Comment:Testing performed by : [address] [address] Blood 12/11/2024 6:05 PM CDT 12/11/2024 6:05 PM CDT us Notinfile Unknown LAB POCT ORDERABLES - DEVICE F inal Result Performing Organization Address [facility] de Phone Number [address] [address] * (ABNORMAL) Troponin T high-sensitivity 2-hour (12/11/2024 5:12 PM CDT) [facility] Trop T hs 23(H) <=14 ng/L Comment: Interpretive Data For further hscTnT resources including the diagnostic algorithm and an aid in interpretation, copy and paste this link: https://nrl.testcatalog.org/show/hsTrop Current Interpretive Data last revised 2020. Testing performed by: [address] [address] Trop T hs delta -3 ng/L MARY JANE Comment:Testing performed by : [address] [address] Trop T hs interp Insignificant MARY JANE Comment:Testing performed by : [address] [address] Blood 12/11/2024 5:12 PM CDT 12/11/2024 5:14 PM CDT Rosa MCKEON LAB BLOOD ORDERABLES Final Resu lt Performing Organization Address [facility] [[email or web address]] Co de Phone Number MARY JANE [address] [address] * POCT glucose (12/11/2024 3:29 PM CDT) [facility] Glucose, POC 141 70 - 199 mg/dL Comment:Testing performed by : [address] [address] Blood 12/11/2024 3:29 PM CDT 12/11/2024 3:29 PM CDT Notinfile Unknown LAB POCT ORDERABLES - DEVICE F inal Result Performing Organization Address [facility] de Phone Number MARY JANE [address] [address] * (ABNORMAL) Troponin T high-sensitivity series (baseline, 2hr, 4hr, 6hr) (12/11/2024 3:01 PM CDT) [facility] Trop T hs 26(H) <=14 ng/L Comment: Interpretive Data For further hscTnT resources including the diagnostic algorithm and an aid in interpretation, copy and paste this link: https://nrl.testcatalog.org/show/hsTrop Current Interpretive Data last revised 2020. Testing performed by: [address] [address] Blood 12/11/2024 3:01 PM CDT 12/11/2024 3:12 PM CDT Rosa MCKEON LAB BLOOD ORDERABLES Final Resu lt Performing Organization Address [facility]/ZIP Co de Phone Number MARY JANE [address] [address] * eGFR (12/11/2024 3:01 PM CDT) eGFR >90 >=60 mL/min/1. 73 [...] was last reviewed 2021. Testing performed by: [facility], [address] [place] [address]., [address] Blood 12/11/2024 3:01 PM CDT 12/11/2024 3:12 PM CDT us Rosa MCKEON LAB BLOOD ORDERABLES Final Resu lt MARY JANE [address] [facility] Department [place] [address] * Pro B-type natriuretic peptide [...] Last Revised Date: 2017. Testing performed by: [facility], [address] [place] [address]., [address] Blood 12/11/2024 3:01 PM CDT 12/11/2024 3:12 PM CDT us Rosa MCKEON LAB BLOOD ORDERABLES Final Resu lt MARY JANE 3514 [facility] Department [place] [address] * Pro B-type natriuretic peptide [...] Last Revised Date: 2017. Testing performed by: [address] [address] Blood 12/11/2024 3:01 PM CDT 12/11/2024 3:12 PM CDT us Rosa MCKEON LAB BLOOD ORDERABLES Final Resu lt MARY JANE [address]137 [facility] Department [place] [address] * Comprehensive metabolic panel (12/11/2024 3:01 PM CDT) Sodium 138 135 - 145 mmol/L Comment:Testing performed by : [address] [address] Potassium, pl 4.1 3.3 - 4.9 mmol/L MARY JANE PHAM Comment:Testing performed by : [address] [address] Chloride 99 97 - 110 mmol/L MARY JANE PHAM Comment:Testing performed by : [address] [address] CO2 25 22 - 32 mmol/L MARY JANE PHAM Comment:Testing performed by : [address] [address] Anion gap 14 2 - 15 mmol/L MARY JANE PHAM Comment:Testing performed by : [address] [address] BUN 18 6 - 25 mg/dL MARY JANE Comment:Testing performed by : [address] [address] Creatinine 0.70 0.60 - 1.10 mg/dL MARY JANE Comment:Testing performed by : [address] [address] Glucose 179 70 - 199 mg/dL MARY [...] was last revised 2022. Testing performed by: [address] [address] Calcium 10.0 8.5 - 10.3 mg/dL MARY JANE Comment:Testing performed by : [address] [address] Bilirubin, total 0.6 0.1 - 1.2 mg/dL MRAY JANE Comment:Testing performed by : [address] [address] Protein, pl 7.8 6.5 - 8.5 g/dL MARY JANE Comment:Testing performed by : [address] [address] Albumin 4.1 3.5 - 5.0 g/dL MARY JANE Comment:Testing performed by : [address] [address] Alk phos 81 40 - 130 Units/L MARY JANE Comment:Testing performed by : [address] [address] ALT 21 7 - 45 Units/L MARY JANE Comment:Testing performed by : [address] [address] AST 21 10 - 45 Units/L MARY JANE PHAM Comment:Testing performed by : [facility], [address] [place]., [address] Blood 12/11/2024 3:01 PM CDT 12/11/2024 3:12 PM CDT us Rosa MCKEON LAB BLOOD ORDERABLES Final Resu lt MARY JANE ANKIT [address] [facility] Department [place] [address] * XR Chest 1 Vw Portable (If [...] Olinda Bernal M.D. FT: FT Report ID: [id number] Reading Location: [id number] Procedure Note Olinda Wells MD - 12/11/2024 EXAM DESCRIPTION: XR CHEST 1 VIEW REASON FOR STUDY: chest pain Chest tightness and shortness of breath onset 8/16 TECHNIQUE: Single radiographic view(s) of the chest. [...] Olinda Bernal M.D. FT: FT Report ID: [id number] Reading Location: [place] [address] Rosa MCKEON IM XR PROCEDURES Final Result * (ABNORMAL) Differential, auto (12/11/2024 2:23 PM CDT) Neutrophil abs 7.54(H) 1.50 - 6.50 K/cumm Comment:Testing performed by : [address] [address] Imm gran abs 0.04 0.00 - 0.10 K/cumm MARY JANE Comment:Testing performed by : [address] [address] Lymphocyte abs 2.07 0.80 - 3.30 K/cumm MARY JANE Comment:Testing performed by : [address] [address] Monocyte abs 0.86(H) 0.20 - 0.80 K/cumm MARY JANE Comment:Testing performed by : [address] [address] Eosinophil abs 0.23 0.00 - 0.50 K/cumm MARY JANE Comment:Testing performed by : [address] [address] Basophil abs 0.05 0.00 - 0.10 K/cumm MARY JANE Comment:Testing performed by : [address] [address] Neutrophil pct 69.8 % MARY JANE Comment: Interpretive Data Percent cell count reference ranges are not reported, since discordance with absolute values may lead to misinterpretation of CBC data. Current Interpretive Data was last revised on 2017. Testing performed by: [address] [address] Imm gran pct 0.4 % MARY JANE Comment: Interpretive Data Percent cell count reference ranges are not reported, since discordance with absolute values may lead to misinterpretation of CBC data. Current Interpretive Data was last revised on 2017. Testing performed by: [address] [address] Lymphocyte pct 19.2 % [facility] Comment: Interpretive Data Percent cell count reference ranges are not reported, since discordance with absolute values may lead to misinterpretation of CBC data. Current Interpretive Data was last revised on 2017. Testing performed by: [address] [address] Monocyte pct 8.0 % [facility] Comment: Interpretive Data Percent cell count reference ranges are not reported, since discordance with absolute values may lead to misinterpretation of CBC data. Current Interpretive Data was last revised on 2017. Testing performed by: [address] [address] Eosinophil pct 2.1 % [facility] Comment: Interpretive Data Percent cell count reference ranges are not reported, since discordance with absolute values may lead to misinterpretation of CBC data. Current Interpretive Data was last revised on 2017. Testing performed by: [address] [address] Basophil pct 0.5 % [facility] Comment: Interpretive Data Percent cell count reference ranges are not reported, since discordance with absolute values may lead to misinterpretation of CBC data. Current Interpretive Data was last revised on 2017. Testing performed by: [address] [address] Blood 12/11/2024 2:23 PM CDT 12/11/2024 2:25 PM CDT Rosa MCKEON LAB BLOOD ORDERABLES Final Resu lt [facility] [address] [facility] Department [place] [address] * (ABNORMAL) CBC with auto differential (12/11/2024 2:23 PM CDT) [facility] Signature WBC 10.79(H) 3.80 - 9.90 K/cumm Comment:Testing performed by : [address] [address] Hgb 13.3 11.9 - 15.5 g/dL MARY JANE Comment:Testing performed by : [address] [address] Hct 40.8 35.6 - 45.5 % MARY JANE Comment:Testing performed by : [address] [address] Plt 313 150 - 400 K/cumm MARY JANE Comment:Testing performed by : [address] [address] MPV 9.8 9.1 - 12.3 fL MARY JANE Comment:Testing performed by : [address] [address] RBC 4.64 3.90 - 5.20 M/cumm MARY JANE Comment:Testing performed by : [address] [address] MCV 87.9 81.3 - 96.4 fL MARY JANE Comment:Testing performed by : [address] [address] MCH 28.7 27.1 - 33.3 pg MARY JANE Comment:Testing performed by : [address] [address] MCHC 32.6 32.3 - 35.7 g/dL MARY JANE Comment:Testing performed by : [address] [address] RDW CV 13.2 11.1 - 14.9 % MARY JANE Comment:Testing performed by : [address] [address] RDW SD 42.5 35.7 - 48.1 fL MARY JANE Comment:Testing performed by : [facility], [address] [place] [address]., [address] NRBC abs 0.00 0.00 - 0.01 K/cumm MARY JANE Comment:Testing performed by : [facility], [address] [place] [address]., [address] Blood Venous blood specimen / Unknown 12/11/2024 2:23 PM CDT 12/11/2024 2:25 PM CDT Rosa MCKEON LAB BLOOD ORDERABLES Final Resu lt MARY JANE [address] [facility] Department [place] [address] * ECG 12 lead (12/11/2024 2:12 PM CDT) Ventricular Rate EKG/Min 85 BPM [facility] Atrial Rate 85 BPM [facility] PA-Interval (MSEC) 106 ms [facility] QRS-Interval (MSEC) 82 ms [facility] QT-Interval (MSEC) 352 ms [facility] QTc 418 ms [facility] P [place] -12 degrees [facility] R [place] 8 degrees [facility] T [place] 27 degrees [facility] Diagnosis Sinus rhythm with short PA Otherwise normal ECG When compared with ECG of 07-DEC-2024 22:32, Previous ECG has undetermined rhythm, needs review Confirmed by SAGAR DELEON M.D. ([id number]) on 12/11/2024 4:50:58 PM [facility] 12/11/2024 2:12 PM CDT 12/11/2024 4:50 PM CDT Rosa MCKEON ECG ORDERABLES Final Result Performing Organization Address City/[facility]/ZIP Co de Phone Number [facility] * POCT glucose (12/08/2024 1:54 AM CDT) Glucose, POC 112 70 - 199 mg/dL Comment:Testing performed by : [facility], [address] [place] [address]., [address] Glucose comment 1 RN/MD Notified MARY JANE PHAM Comment:Testing performed by : [address] [address] Blood 12/08/2024 1:54 AM CDT 12/08/2024 1:54 AM CDT Gil Diez DO LAB POCT ORDERABLES - DEVIC E Final Result MARY JANE PHAM [address] [facility] Department [place] [address] * (ABNORMAL) Urinalysis reflex to microscopic and culture Urine (12/08/2024 1:50 AM CDT) Color, ur Yellow Yellow Comment:Testing performed by : [address] [address] Clarity, ur Clear Clear MARY JANE PHAM Comment:Testing performed by : [address] [address] Specific gravity, ur 1.020 1.003 - 1.030 MARY JANE PHAM Comment:Testing performed by : [address] [address] pH, urine 5.5 MARY JANE Comment: Interpretive Data U rine pH is affected by diet, medications, systemic acid-base disturbances, and renal tubular function. pH may affect urinary stone formation. For example, urine pH below 6.0 may help reduce the tendency for calcium phosphate stones and pH greater than 6.0 may reduce the tendency for uric acid stone formation. Source: [facility] T-VIPS Current Interpretive Data was last revised on 2017 Testing performed by: [address] [address] Protein, ur ql Negative Negative MARY JANE PHAM Comment:Testing performed by : [address] [address] Glucose, ur ql Negative Negative MARY JANE PHAM Comment:Testing performed by : [address] [address] Ketones, ur Negative Negative MARY JANE PHAM Comment:Testing performed by : [address] [address] Bilirubin, ur Negative Negative MARY JANE PHAM Comment:Testing performed by : [address], [place]., [address] Blood, ur Trace(A) Negative MARY JANE PHAM Comment:Testing performed by : [address], [place]., [address] Urobilinogen, ur <2.0 <2.0 mg/dL MARY JANE PHAM Comment:Testing performed by : [address], [place]., [address] Nitrite, ur Negative Negative MARY JANE PHAM Comment:Testing performed by : [address], [place]., [address] Leukocyte esterase, ur Negative Negative MARY JANE PHAM Comment:Testing performed by : [address] [address] UA reflex comment Reflex to microscopic UA will be performed. MARY JANE PHAM Comment:Testing performed by : [address] [address] Urine 12/08/2024 1:50 AM CDT 12/08/2024 1:53 AM CDT us Gil Diez DO LAB MICROBIOLOGY - GENERAL ORDERABLES Final Result MARY JANE PHAM [address] [facility] Department of Laboratories [place], [place] [id number] * (ABNORMAL) Urinalysis, microscopic only (12/08/2024 1:50 AM CDT) WBC, ur 0-5 0 - 5 /HPF Comment:Testing performed by : [address] [address] RBC, ur 0-2 0 - 2 /HPF MARY JANE PHAM Comment:Testing performed by : [address] [address] Epithelial cells, squamous, ur 6-10(A) 0 - 5 /HPF MARY JANE PHAM Comment:Testing performed by : [address] [address] Mucous, ur Present(A) MARY JANE PHAM Comment:Testing performed by : [address] [address] Culture Reflex Comment Reflex conditions for urine culture (WBC >10) not met. MARY JANE Comment:Testing performed by : [address] [address] Urine 12/08/2024 1:50 AM CDT 12/08/2024 1:53 AM CDT Gil Diez DO LAB URINE ORDERABLES Final Result Performing Organization Address [facility] de Phone Number MARY JANE [address] [address] * (ABNORMAL) Troponin T high-sensitivity (12/08/2024 1:17 AM CDT) Trop T hs 28(H) <=14 ng/L Comment: Interpretive Data For further hscTnT resources including the diagnostic algorithm and an aid in interpretation, copy and paste this link: https://nrl.testcatalog.org/show/hsTrop Current Interpretive Data last revised 2020. Testing performed by: [address] [address] Blood 12/08/2024 1:17 AM CDT 12/08/2024 1:20 AM CDT Gil Diez DO LAB BLOOD ORDERABLES Final Result Performing Organization Address [facility] de Phone Number [address] [address] * Influenza A/B, RSV, and COVID-19 PCR Nasopharyngeal (12/08/2024 1:05 AM CDT) Pathologist [facility] COVID-19 RNA Negative Negative Comment:Testing performed by : [address] [address] Influenza A RNA Negative Negative MARY JANE Comment:Testing performed by : [address] [address] Influenza B RNA Negative Negative MARY JANE Comment:Testing performed by : [address] [address] RSV RNA Negative Negative MARY JANE PHAM Comment: Interpretive data: Testing performed by [facility]. This test is performed using the [employer] Xpert Xpress CoV-2/Flu/RSV plus assay. This is a multiplex, real-time reverse transcriptase PCR assay intended for the qualitative detection of nucleic acid from SARS-CoV-2, influenza A, influenza B, and respiratory syncytial virus. This assay has been cleared by the [place] Food and Drug administration. The performance characteristics have been verified by the [facility]. Results must be considered in the clinical context, and a negative result does not rule out infection. Interpretive Data last revised 2023 Testing performed by: [address] [address] Nasopharyngeal 12/08/2024 1: 05 AM CDT 12/08/2024 1:10 AM CDT Narrative MARY JANE - 12/08/2024 1:49 AM CDT Is the Patient experiencing symptoms consistent with COVID?->Yes Gil Diez DO LAB MICROBIOLOGY - GENERAL ORDERABLES Final Result Performing Organization Address City/State/[facility] [[email or web address]] Co de Phone Number MARY JANE PHAM [phone] [facility] [place] [address] * CT Chest WO Contrast (12/08/2024 1:04 [...] Juve Gallegos M.D. AR: VALERY Report ID: [id number] Reading Location: [id number] Procedure Note Juve Gallegos MD - 12/08/2024 [...] Juve Gallegos M.D. AR: VALERY Report ID: [id number] Reading Location: [id number] Gil Diez DO IMG CT PROCEDURES Final Res ult * POCT glucose (12/08/2024 12:32 AM CDT) Glucose, POC 92 70 - 199 mg/dL Comment:Testing performed by : [address] [address] Blood 12/08/2024 12:3 2 AM CDT 12/08/2024 12:32 AM CDT Gil Diez DO LAB POCT ORDERABLES - DEVIC E Final Result Performing Organization Address [facility] de Phone Number [place] [address] [facility] [place] [address] * POCT glucose (12/08/2024 12:15 AM CDT) Glucose, POC 88 70 - 199 mg/dL Comment:Testing performed by : [address] [address] Glucose comment 1 RN/MD Notified MARY JANE Comment:Testing performed by : [address] [address] Blood 12/08/2024 12:1 5 AM CDT 12/08/2024 12:15 AM CDT Gil Diez DO LAB POCT ORDERABLES - DEVIC E Final Result Performing Organization Address City/[facility] [[email or web address]] Co de Phone Number BCNER [address] [address] * POCT glucose (12/07/2024 11:58 PM CDT) Glucose, POC 80 70 - 199 mg/dL Comment:Testing performed by : [address] [address] Glucose comment 1 RN/MD Notified MARY JANE Comment:Testing performed by : [address] [address] Glucose comment 2 Will Repeat Test MARY JANE Comment:Testing performed by : [address] [address] Blood 12/07/2024 11:5 8 PM CDT 12/07/2024 11:58 PM CDT Gil Diez DO LAB POCT ORDERABLES - DEVIC E Final Result Performing Organization Address [facility] [[email or web address]] Co de Phone Number [address] [address] * (ABNORMAL) POCT glucose (12/07/2024 11:42 PM CDT) Glucose, POC 67(L) 70 - 199 mg/dL Comment:Testing performed by : [address] [address] Glucose comment 1 RN/MD Notified MARY JANE Comment:Testing performed by : [address] [address] Blood 12/07/2024 11:4 2 PM CDT 12/07/2024 11:42 PM CDT Gil Diez DO LAB POCT ORDERABLES - DEVIC E Final Result Performing Organization Address City/[facility]/ZIP Co de Phone Number [address] [address] * CT Head WO Contrast (12/07/2024 11:26 [...] Patrick Zhou M.D. KH: KATH Report ID: [id number] Reading Location: [place] [address] Procedure Note Patrick Zhou MD - 12/07/2024 [...] 11:53 PM - Electronically signed by Patrick Zhuo M.D. KH: KATH Report ID: [id number] Reading Location: [place] [address] Gil Diez DO IMG CT PROCEDURES Final Res ult * POCT glucose (12/07/2024 11:08 PM CDT) Glucose, POC 75 70 - 199 mg/dL Comment:Testing performed by : [address] [address] Blood 12/07/2024 11:0 8 PM CDT 12/07/2024 11:08 PM CDT Gil Diez DO LAB POCT ORDERABLES - DEVIC E Final Result Performing Organization Address City/[facility]/ZIP Co de Phone Number [address] [place] [address] * POCT glucose (12/07/2024 11:07 PM CDT) Glucose, POC 71 70 - 199 mg/dL Comment:Testing performed by : [address] [address] Blood 12/07/2024 11:0 7 PM CDT 12/07/2024 11:07 PM CDT Gil Diez DO LAB POCT ORDERABLES - DEVIC E Final Result Performing Organization Address City/[facility]/ZIP Co de Phone Number [address] [place] [address] * XR Chest 1 Vw Portable (If [...] Patrick Zhou M.D. KH: KATH Report ID: [id number] Reading Location: [place] [address] Procedure Note Patrick Zhou MD - 12/07/2024 [...] Patrick Zhou M.D. KH: KATH Report ID: [id number] Reading Location: [place] [address] Gil Diez DO IMG XR PROCEDURES Final Res ult * (ABNORMAL) Troponin T high-sensitivity series (baseline, 2hr, 4hr, 6hr) (12/07/2024 10:47 PM CDT) Trop T hs 30(H) <=14 ng/L Comment: Interpretive Data For further hscTnT resources including the diagnostic algorithm and an aid in interpretation, copy and paste this link: https://nrl.testcatalog.org/show/hsTrop Current Interpretive Data last revised 2020. Testing performed by: [facility], [address] [place] [address]., [address] Blood 12/07/2024 10:4 7 PM CDT 12/07/2024 10:51 PM CDT Gil Diez DO LAB BLOOD ORDERABLES Final Result MARY JANE [address] [facility] Department [place] [address] * eGFR (12/07/2024 10:47 PM [...] last reviewed 2021. Testing performed by: [address] [address] Blood 12/07/2024 10:4 7 PM CDT 12/07/2024 10:51 PM CDT us Gil Diez DO LAB BLOOD ORDERABLES Final Result MARY JANE [address] Department [place] [address] * (ABNORMAL) Differential, auto (12/07/2024 10:47 PM CDT) Neutrophil abs 7.66(H) 1.50 - 6.50 K/cumm Comment:Testing performed by : [address] [address] Imm gran abs 0.06 0.00 - 0.10 K/cumm MARY JANE Comment:Testing performed by : [address] [address] Lymphocyte abs 3.48(H) 0.80 - 3.30 K/cumm MARY JANE Comment:Testing performed by : [address] [address] Monocyte abs 1.03(H) 0.20 - 0.80 K/cumm MARY JANE Comment:Testing performed by : [address] [address] Eosinophil abs 0.22 0.00 - 0.50 K/cumm MARY JANE Comment:Testing performed by : [address] [address] Basophil abs 0.05 0.00 - 0.10 K/cumm MARY JANE Comment:Testing performed by : [address] [address] Neutrophil pct 61.3 % MARY JANE Comment: Interpretive Data Percent cell count reference ranges are not reported, since discordance with absolute values may lead to misinterpretation of CBC data. Current Interpretive Data was last revised on 2017. Testing performed by: [address] [address] Imm gran pct 0.5 % MARY JANE Comment: Interpretive Data Percent cell count reference ranges are not reported, since discordance with absolute values may lead to misinterpretation of CBC data. Current Interpretive Data was last revised on 2017. Testing performed by: [address] [address] Lymphocyte pct 27.8 % MARY JANE Comment: Interpretive Data Percent cell count reference ranges are not reported, since discordance with absolute values may lead to misinterpretation of CBC data. Current Interpretive Data was last revised on 2017. Testing performed by: [address] [address] Monocyte pct 8.2 % MARY JANE Comment: Interpretive Data Percent cell count reference ranges are not reported, since discordance with absolute values may lead to misinterpretation of CBC data. Current Interpretive Data was last revised on 2017. Testing performed by: [address] [address] Eosinophil pct 1.8 % MARY JANE Comment: Interpretive Data Percent cell count reference ranges are not reported, since discordance with absolute values may lead to misinterpretation of CBC data. Current Interpretive Data was last revised on 2017. Testing performed by: [address] [address] Basophil pct 0.4 % MARY JANE Comment: Interpretive Data Percent cell count reference ranges are not reported, since discordance with absolute values may lead to misinterpretation of CBC data. Current Interpretive Data was last revised on 2017. Testing performed by: [facility], [address] [place] [address]., [address] Blood 12/07/2024 10:4 7 PM CDT 12/07/2024 10:51 PM CDT us Gil Sheehan Chary DO LAB BLOOD ORDERABLES Final Result MARY JANE [address] [facility] Department of Laboratories [place], [place] [id number] * Pro B-type natriuretic peptide (12/07/2024 10:47 [...] Last Revised Date: 2017. Testing performed by: [facility], [address] [place] [address]., [address] Blood 12/07/2024 10:4 7 PM CDT 12/07/2024 10:51 PM CDT Gil Diez DO LAB BLOOD ORDERABLES Final Result MARY JANE 45[address] [facility] Department [place] [address] * (ABNORMAL) CBC with auto differential (12/07/2024 10:47 PM CDT) WBC 12.50(H) 3.80 - 9.90 K/cumm Comment:Testing performed by : [address] [address] Hgb 13.2 11.9 - 15.5 g/dL MARY JANE Comment:Testing performed by : [address] [address] Hct 41.9 35.6 - 45.5 % MARY JANE Comment:Testing performed by : [address] [address] Plt 315 150 - 400 K/cumm MARY JANE Comment:Testing performed by : [address] [address] MPV 9.7 9.1 - 12.3 fL MARY JANE Comment:Testing performed by : [address] [address] RBC 4.65 3.90 - 5.20 M/cumm MARY JANE Comment:Testing performed by : [address] [address] MCV 90.1 81.3 - 96.4 fL MARY JANE Comment:Testing performed by : [address] [address] MCH 28.4 27.1 - 33.3 pg MARY JANE Comment:Testing performed by : [address] [address] MCHC 31.5(L) 32.3 - 35.7 g/dL MARY JANE Comment:Testing performed by : [address] [address] RDW CV 13.3 11.1 - 14.9 % MARY JANE PHAM Comment:Testing performed by : [address] [address] RDW SD 43.7 35.7 - 48.1 fL MARY JANE PHAM Comment:Testing performed by : [address] [address] NRBC abs 0.00 0.00 - 0.01 K/cumm MARY JANE Comment:Testing performed by : [address], [address] Blood 12/07/2024 10:4 7 PM CDT 12/07/2024 10:51 PM CDT Gil Diez LAB BLOOD ORDERABLES Final Result Performing Organization Address [facility] [[email or web address]] Co de Phone Number [address] [place] [address] * Magnesium (12/07/2024 10:47 PM CDT) Pathologist [facility] Magnesium 1.9 1.4 - 2.5 mg/dL Comment:Testing performed by : [address], [address] Blood 12/07/2024 10:4 7 PM CDT 12/07/2024 10:51 PM CDT Gil Diez LAB BLOOD ORDERABLES Final Result Performing Organization Address City/[facility] [[email or web address]] Co de Phone Number [address] [address] * (ABNORMAL) Comprehensive metabolic panel (12/07/2024 10:47 PM CDT) Sodium 141 135 - 145 mmol/L Comment:Testing performed by : [address], [address] Potassium, pl 3.9 3.3 - 4.9 mmol/L MARY JANE Comment:Testing performed by : [address] [place] [address] Chloride 102 97 - 110 mmol/L [facility] Comment:Testing performed by : [address], [place]., [address] CO2 25 22 - 32 mmol/L MARY JANE Comment:Testing performed by : [address], [place]., [address] Anion gap 14 2 - 15 mmol/L MARY JANE Comment:Testing performed by : [address], [place]., [address] BUN 19 6 - 25 mg/dL [facility] Comment:Testing performed by : [address], [place]., [address] Creatinine 0.78 0.60 - 1.10 mg/dL MARY JANE Comment:Testing performed by : [address], [place]., [address] Glucose 92 70 - 199 mg/dL [facility] Comment: Interpretive Data Fasting glucose >/= [...] was last revised 2022. Testing performed by: [address] [address] Calcium 10.7(H) 8.5 - 10.3 mg/dL [facility] Comment:Testing performed by : [address] [address] Bilirubin, total 0.5 0.1 - 1.2 mg/dL MARY JANE Comment:Testing performed by : [address] [address] Protein, pl 8.4 6.5 - 8.5 g/dL MARY JANE Comment:Testing performed by : [address], [place]., [address] Albumin 4.1 3.5 - 5.0 g/dL MARY JANE PHAM Comment:Testing performed by : [facility], [address] [place] [address]., [address] Alk phos 79 40 - 130 Units/L MARY JANE Comment:Testing performed by : [facility], [address] [place] [address]., [address] ALT 21 7 - 45 Units/L MARY JANE Comment:Testing performed by : [address] [address] AST 21 10 - 45 Units/L MARY JANE Comment:Testing performed by : [address] [address] Blood 12/07/2024 10:4 7 PM CDT 12/07/2024 10:51 PM CDT us Gil Diez DO LAB BLOOD ORDERABLES Final Result Performing Organization Address City/[facility]/ZIP Co de Phone Number [place] [phone] [facility] Department [place] [address] * ECG 12 lead (12/07/2024 10:32 PM CDT) Ventricular Rate EKG/Min 78 BPM [facility] Atrial Rate 78 BPM [facility] PA-Interval (MSEC) 104 ms [facility] QRS-Interval (MSEC) 84 ms [facility] QT-Interval (MSEC) 392 ms [facility] QTc 446 ms [facility] P [place] -65 degrees [facility] R [place] 0 degrees [facility] T [place] 44 degrees [facility] Diagnosis Sinus rhythm. Otherwise normal ECG When compared with ECG of 07-DEC-2024 22:32, Premature ventricular complexes are no longer Present Premature atrial complexes are now Present Confirmed by MD JOHNNA, VINCENT ([id number]) on 12/08/2024 11:31:38 PM [facility] 12/07/2024 10:3 2 PM CDT 12/08/2024 11:31 PM CDT us Gil Diez DO ECG ORDERABLES Final Resul t [facility] * ECG 12 lead (12/07/2024 10:32 PM CDT) Ventricular Rate EKG/Min 75 BPM [facility] Atrial Rate 75 BPM [facility] PA-Interval (MSEC) 138 ms [facility] QRS-Interval (MSEC) 84 ms [facility] QT-Interval (MSEC) 360 ms [facility] QTc 402 ms [facility] P [place] -78 degrees [facility] R [place] -3 degrees [facility] T [place] 33 degrees [facility] Diagnosis Unusual P axis and short PA, probable junctional rhythm with occasional Premature ventricular complexes Abnormal ECG When compared with ECG of 02-DEC-2024 15:33, Junctional rhythm has replaced Sinus rhythm Confirmed by MD JOHNNA, VINCENT ([id number]), senior editor RIMA GELLER ([id number]) on 12/08/2024 8:22:42 AM Also confirmed by MD OROPEZA ROBERT ([id number]), senior editor KRISTINE LEIJA ([id number]) on 12/09/2024 8:25:14 AM [facility] 12/07/2024 10:3 2 PM CDT 12/09/2024 8:25 AM CDT us Gil Diez DO ECG ORDERABLES Edited Resu lt - Final Performing Organization Address City/[facility] [[email or web address]] Co de Phone Number [facility] * (ABNORMAL) POCT glucose (12/05/2024 1:27 PM CDT) Glucose, POC 251(H) 70 - 199 mg/dL Comment:Testing performed by : [facility], [address] [place] [address]., [address] Glucose comment 1 RN/MD Notified MARY JANE PHAM Comment:Testing performed by : [facility], [address] [place] [address]., [address] Blood 12/05/2024 1:27 PM CDT 12/05/2024 1:27 PM CDT us Kenzie Jiménez MD LAB POCT ORDERABLES - DE VICE Final Result MARY JANE MH [address] [facility] Department [place] [address] * XR Chest PA Lateral 2 Views [...] Barbara Man M.D. TW: TW Report ID: [id number] Reading Location: [id number] Procedure Note Barbara Man MD - 12/05/2024 [...] Electronically signed by Barbara Man M.D. TW: SAROJ Report ID: [id number] Reading Location: [place] [address] Kenzie Jiménez MD IMG XR PROCEDURES Final Result * POCT glucose (12/05/2024 8:38 AM CDT) [facility] Glucose, POC 144 70 - 199 mg/dL Comment:Testing performed by : [facility], [address] [place] [address]., [address] Glucose comment 1 RN/MD Notified MARY JANE PHAM Comment:Testing performed by : [facility], [address] [place] [address]., [address] Blood 12/05/2024 8:38 AM CDT 12/05/2024 8:38 AM CDT Kenzie Jiménez MD LAB POCT ORDERABLES - DE VICE Final Result MARY JANE PHAM 9545 [facility] Department [place] [address] * eGFR (12/05/2024 5:04 AM CDT) [facility] eGFR >90 >=60 mL/min/1. 73 [...] last reviewed 2021. Testing performed by: [address] [address] Blood 12/05/2024 5:04 AM CDT 12/05/2024 5:24 AM CDT us Santos Wallace MD LAB BLOOD ORDERABLES Final Res ult MARY JANE [facility] Department [place] [address] * (ABNORMAL) CBC without differential (12/05/2024 5:04 AM CDT) WBC 11.17(H) 3.80 - 9.90 K/cumm Comment:Testing performed by : [address] [address] Hgb 12.2 11.9 - 15.5 g/dL MARY JANE PHAM Comment:Testing performed by : [address] [address] Hct 38.4 35.6 - 45.5 % MARY JANE PHAM Comment:Testing performed by : [address] [address] Plt 286 150 - 400 K/cumm MARY JANE PHAM Comment:Testing performed by : [address] [address] MPV 9.8 9.1 - 12.3 fL MARY JANE PHAM Comment:Testing performed by : [address] [address] RBC 4.27 3.90 - 5.20 M/cumm MARY JANE PHAM Comment:Testing performed by : [address] [address] MCV 89.9 81.3 - 96.4 fL MARY JANE PHAM Comment:Testing performed by : [address] [address] MCH 28.6 27.1 - 33.3 pg MARY JANE PHAM Comment:Testing performed by : [address] [address] MCHC 31.8(L) 32.3 - 35.7 g/dL MARY JANE PHAM Comment:Testing performed by : [address], [address] RDW CV 13.5 11.1 - 14.9 % MARY JANE PHAM Comment:Testing performed by : [address] [address] RDW SD 44.3 35.7 - 48.1 fL MARY JANE PHAM Comment:Testing performed by : [address] [address] NRBC abs 0.00 0.00 - 0.01 K/cumm MARY JANE Comment:Testing performed by : [address] [address] Blood 12/05/2024 5:04 AM CDT 12/05/2024 5:24 AM CDT us Santos Wallace MD LAB BLOOD ORDERABLES Final Res ult MARY JANE [address] [facility] Department [place] [address] * Basic metabolic panel (12/05/2024 5:04 AM CDT) Pathologist [facility] Sodium 138 135 - 145 mmol/L Comment:Testing performed by : [address] [address] Potassium, pl 3.7 3.3 - 4.9 mmol/L MARY JANE PHAM Comment:Testing performed by : [address] [address] Chloride 101 97 - 110 mmol/L MARY JANE Comment:Testing performed by : [address] [address] CO2 25 22 - 32 mmol/L MARY JANE Comment:Testing performed by : [address] [address] Anion gap 12 2 - 15 mmol/L MARY JANE Comment:Testing performed by : [address] [address] BUN 20 6 - 25 mg/dL MARY JANE Comment:Testing performed by : [address] [address] Creatinine 0.71 0.60 - 1.10 mg/dL MARY JANE Comment:Testing performed by : [address] [address] Glucose 159 70 - 199 mg/dL MARY [...] was last revised 2022. Testing performed by: [address] [address] Calcium 9.5 8.5 - 10.3 mg/dL MARY JANE Comment:Testing performed by : [address] [address] Blood 12/05/2024 5:04 AM CDT 12/05/2024 5:24 AM CDT us Santos Wallace MD LAB BLOOD ORDERABLES Final Res ult MARY JANE [address] [facility] Department of Laboratories [place], [place] [id number] * POCT glucose (12/04/2024 8:45 PM CDT) Glucose, POC 147 70 - 199 mg/dL Comment:Testing performed by : [address] [address] Blood 12/04/2024 8:45 PM CDT 12/04/2024 8:45 PM CDT Kenzie Jiménez MD LAB POCT ORDERABLES - DE VICE Final Result Performing Organization Address [facility] [[email or web address]] Co vt Phone Number [address] [place] [address] * POCT glucose (12/04/2024 4:27 PM CDT) Glucose, POC 153 70 - 199 mg/dL Comment:Testing performed by : [address] [address] Blood 12/04/2024 4:27 PM CDT 12/04/2024 4:27 PM CDT Kenzie Jiménez MD LAB POCT ORDERABLES - DE VICE Final Result Performing Organization Address [facility] Phone Number [address] [place] [address] * NM Myocardial Amyloidosis Imaging [employer] [...] Olinda Bernal M.D. FT: FT Report ID: [id number] Reading Location: [place] [address] Procedure Note Olinda Wells MD - 12/04/2024 [...] Olinda Bernal M.D. FT: FT Report ID: [id number] Reading Location: [place] [address] [place] Medina MD [facility] PROCEDURES Final Result * POCT glucose (12/04/2024 11:15 AM CDT) [facility] Signature Glucose, POC 91 70 - 199 mg/dL Comment:Testing performed by : [facility], [address] [place], [place] [address], [place]., [address] Blood 12/04/2024 11:1 5 AM CDT 12/04/2024 11:15 AM CDT Kenzie Jiménez MD LAB POCT ORDERABLES - DE VICE Final Result Performing Organization Address [facility] [[email or web address]] Co de Phone Number MARY JANE [address] [address] * POCT glucose (12/04/2024 7:57 AM CDT) Glucose, POC 150 70 - 199 mg/dL Comment:Testing performed by : [facility], [address] [place] [address]., [address] Blood 12/04/2024 7:57 AM CDT 12/04/2024 7:57 AM CDT Kenzie Jiménez MD LAB POCT ORDERABLES - DE VICE Final Result Performing Organization Address [facility] [[email or web address]] Co de Phone Number [address] [address] * eGFR (12/04/2024 5:35 AM CDT) eGFR [...] last reviewed 2021. Testing performed by: [address] [address] Blood 12/04/2024 5:35 AM CDT 12/04/2024 6:37 AM CDT us Kenzie Jiménez MD LAB BLOOD ORDERABLES Fin al Result [facility] [address] [facility] Department [place] [address] * (ABNORMAL) Differential, auto (12/04/2024 5:35 AM CDT) Neutrophil abs 7.29(H) 1.50 - 6.50 K/cumm Comment:Testing performed by : [address] [address] Imm gran abs 0.06 0.00 - 0.10 K/cumm MARY JANE Comment:Testing performed by : [address] [address] Lymphocyte abs 2.56 0.80 - 3.30 K/cumm MARY JANE Comment:Testing performed by : [address] [address] Monocyte abs 0.75 0.20 - 0.80 K/cumm MARY JANE Comment:Testing performed by : [address] [address] Eosinophil abs 0.21 0.00 - 0.50 K/cumm MARY JANE Comment:Testing performed by : [address] [address] Basophil abs 0.03 0.00 - 0.10 K/cumm MARY JANE Comment:Testing performed by : [address] [address] Neutrophil pct 66.8 % MARY JANE Comment: Interpretive Data Percent cell count reference ranges are not reported, since discordance with absolute values may lead to misinterpretation of CBC data. Current Interpretive Data was last revised on 2017. Testing performed by: [address] [address] Imm gran pct 0.6 % [facility] Comment: Interpretive Data Percent cell count reference ranges are not reported, since discordance with absolute values may lead to misinterpretation of CBC data. Current Interpretive Data was last revised on 2017. Testing performed by: [address] [address] Lymphocyte pct 23.5 % [facility] Comment: Interpretive Data Percent cell count reference ranges are not reported, since discordance with absolute values may lead to misinterpretation of CBC data. Current Interpretive Data was last revised on 2017. Testing performed by: [address] [address] Monocyte pct 6.9 % [facility] Comment: Interpretive Data Percent cell count reference ranges are not reported, since discordance with absolute values may lead to misinterpretation of CBC data. Current Interpretive Data was last revised on 2017. Testing performed by: [address] [address] Eosinophil pct 1.9 % [facility] Comment: Interpretive Data Percent cell count reference ranges are not reported, since discordance with absolute values may lead to misinterpretation of CBC data. Current Interpretive Data was last revised on 2017. Testing performed by: [address] [address] Basophil pct 0.3 % [facility] Comment: Interpretive Data Percent cell count reference ranges are not reported, since discordance with absolute values may lead to misinterpretation of CBC data. Current Interpretive Data was last revised on 2017. Testing performed by: [address] [address] Blood 12/04/2024 5:35 AM CDT 12/04/2024 6:37 AM CDT us Kenzie Jiménez MD LAB BLOOD ORDERABLES Fin al Result MARY JANE [address] [facility] Department [place] [address] * (ABNORMAL) Immunoglobulin free light chains (12/04/2024 5:35 AM CDT) [place]/Lambda ratio [facility] 1.26 0.26 - 1.65 Comment: Interpretive Data The Binding Site FreeLite assay procedure was used. Results from different manufacturers or methods may not be comparable. Serial testing should be performed using the same methods and instrumentation. Current Interpretive Data was last revised on 2023. Testing performed by: [facility], [address] [place]., [address] [place] free light chain [facility] 3.37(H) 0.33 - 1.94 mg/dL MARY JANE PHAM Comment: Interpretive Data The Binding Site FreeLite assay procedure was used. Results from different manufacturers or methods may not be comparable. Serial testing should be performed using the same methods and instrumentation. Current Interpretive Data was last revised on 2023. Testing performed by: [facility], [address] [place]., [address] Lambda free light chain [facility] 2.67(H) 0.57 - 2.63 mg/dL MARY JANE PHAM Comment: Interpretive Data The Binding Site FreeLite assay procedure was used. Results from different manufacturers or methods may not be comparable. Serial testing should be performed using the same methods and instrumentation. Current Interpretive Data was last revised on 2023. Testing performed by: [facility], [address] [place]., [address] Blood 12/04/2024 5:35 AM CDT 12/04/2024 9:21 AM CDT us Salinas Medina MD LAB BLOOD ORDERABLES Fi nal Result MARY JANE [address] [facility] Department [place] [address] * (ABNORMAL) CBC with auto differential (12/04/2024 5:35 AM CDT) Pathologist [facility] WBC 10.90(H) 3.80 - 9.90 K/cumm Comment:Testing performed by : [address] [address] Hgb 12.0 11.9 - 15.5 g/dL MARY JANE Comment:Testing performed by : [address] [address] Hct 38.0 35.6 - 45.5 % MARY JANE Comment:Testing performed by : [address] [address] Plt 258 150 - 400 K/cumm MARY JANE Comment:Testing performed by : [address], [address] MPV 10.1 9.1 - 12.3 fL MARY JANE Comment:Testing performed by : [address], [address] RBC 4.18 3.90 - 5.20 M/cumm MARY JANE Comment:Testing performed by : [address], [address] MCV 90.9 81.3 - 96.4 fL MARY JANE Comment:Testing performed by : [address] [address] MCH 28.7 27.1 - 33.3 pg MARY JANE Comment:Testing performed by : [address], [address] MCHC 31.6(L) 32.3 - 35.7 g/dL MARY JANE Comment:Testing performed by : [address], [address] RDW CV 13.5 11.1 - 14.9 % MARY JANE Comment:Testing performed by : [address] [address] RDW SD 45.0 35.7 - 48.1 fL MARY JANE Comment:Testing performed by : [address], [address] NRBC abs 0.00 0.00 - 0.01 K/cumm MARY JANE Comment:Testing performed by : [address] [address] Blood 12/04/2024 5:35 AM CDT 12/04/2024 6:37 AM CDT Kenzie Jiménez MD LAB BLOOD ORDERABLES Fin al Result Performing Organization Address [facility] de Phone Number [facility] [address] [place] [address] * Magnesium (12/04/2024 5:35 AM CDT) Magnesium 1.7 1.4 - 2.5 mg/dL Comment:Testing performed by : [address] [address] Blood 12/04/2024 5:35 AM CDT 12/04/2024 6:37 AM CDT Kenzie Jiménez MD LAB BLOOD ORDERABLES Fin al Result Performing Organization Address [facility] Phone Number [facility] [address] [place] [address] * (ABNORMAL) Hemoglobin A1c (12/04/2024 5:35 AM CDT) Hgb A1C 9.7(H) 4.0 - 5.6 % Comment:Testing performed by : [address] [address] Estimated Average Glucose 232 mg/dL [facility] Comment: The ADA recommends reporting an estimated Average Glucose (eAG) with all Hemoglobin A1c results using the equation derived from a study of 507 normal and diabetic adults. Minority populations were underrepresented and children were not included. (Diabetes Care 31:6069-5595, 2008). The eAG is not equivalent to a fasting glucose. Testing performed by: [address] [address] Blood 12/04/2024 5:35 AM CDT 12/04/2024 6:39 AM CDT Salinas Medina MD LAB BLOOD ORDERABLES Fi nal Result Performing Organization Address [facility]/ZIP Co de Phone Number [facility] [address] [facility] Department [place] [address] * Lipid panel (12/04/2024 5:35 AM CDT) [facility] Cholesterol 176 30 - 199 mg/dL [...] revised on 2017. Testing performed by: [address] [address] Triglycerides 140 <=149 mg/dL MARY JANE Comment: Interpretive Data [...] revised on 2017. Testing performed by: [address] [address] HDL 43 >=40 mg/dL MARY JANE Comment: [...] revised on 2017. Testing performed by: [address] [address] LDL, calculated 108 <=129 mg/dL MARY JANE [...] last revised on 2023. Testing performed by: [address] [address] Non-HDL Cholesterol 133 mg/dL MARY JANE Comment: [...] revised on 2017. Testing performed by: [address] [address] Chol/HDL ratio 4 MARY JANE Comment:Testing performed by : [address] [address] Blood 12/04/2024 5:35 AM CDT 12/04/2024 6:37 AM CDT Salinas Medina MD LAB BLOOD ORDERABLES Fi nal Result MARY JANE [address] [facility] Department [place] [address] * (ABNORMAL) Comprehensive metabolic panel (12/04/2024 5:35 AM CDT) Sodium 136 135 - 145 mmol/L Comment:Testing performed by : [address] [address] Potassium, pl 3.9 3.3 - 4.9 mmol/L MARY JANE Comment:Testing performed by : [address] [address] Chloride 99 97 - 110 mmol/L MARY JANE Comment:Testing performed by : [address] [address] CO2 26 22 - 32 mmol/L MARY JANE Comment:Testing performed by : [address] [address] Anion gap 11 2 - 15 mmol/L MARY JANE Comment:Testing performed by : [address] [address] BUN 17 6 - 25 mg/dL MARY JANE Comment:Testing performed by : [address] [address] Creatinine 0.69 0.60 - 1.10 mg/dL MARY JANE Comment:Testing performed by : [address] [address] Glucose 149 70 - 199 mg/dL MARY [...] was last revised 2022. Testing performed by: [address] [address] Calcium 9.5 8.5 - 10.3 mg/dL MARY JANE Comment:Testing performed by : [address] [address] Bilirubin, total 0.8 0.1 - 1.2 mg/dL MARY JANE Comment:Testing performed by : [address] [address] Protein, pl 6.8 6.5 - 8.5 g/dL MARY JANE Comment:Testing performed by : [address] [address] Albumin 3.3(L) 3.5 - 5.0 g/dL MARY JANE Comment:Testing performed by : [address] [address] Alk phos 64 40 - 130 Units/L MARY JANE Comment:Testing performed by : [address] [address] ALT 17 7 - 45 Units/L MARY JANE Comment:Testing performed by : [address] [address] AST 15 10 - 45 Units/L MARY JANE Comment:Testing performed by : [address] [address] Blood 12/04/2024 5:35 AM CDT 12/04/2024 6:37 AM CDT us Kenzie Jiménez MD LAB BLOOD ORDERABLES Fin al Result MARY JANE [address] [facility] Department [place] [address] * POCT glucose (12/03/2024 9:20 PM CDT) [facility] Signature Glucose, POC 105 70 - 199 mg/dL Comment:Testing performed by : [address] [address] Blood 12/03/2024 9:20 PM CDT 12/03/2024 9:20 PM CDT Kenzie Jiménez MD LAB POCT ORDERABLES - DE VICE Final Result Performing Organization Address [facility] [[email or web address]] Co de Phone Number MARY JANE [facility] [place] [address] * POCT glucose (12/03/2024 4:42 PM CDT) Glucose, POC 145 70 - 199 mg/dL Comment:Testing performed by : [address] [address] Glucose comment 1 Will Repeat Test MARY JANE PHAM Comment:Testing performed by : [address] [address] Glucose comment 2 RN/MD Notified MARY JANE Comment:Testing performed by : [address] [address] Blood 12/03/2024 4:42 PM CDT 12/03/2024 4:42 PM CDT Kenzie Jiménez MD LAB POCT ORDERABLES - DE VICE Final Result Performing Organization Address [facility] [[email or web address]] Co de Phone Number MARY JANE [facility] [place] [address] * POCT glucose (12/03/2024 12:25 PM CDT) Glucose, POC 199 70 - 199 mg/dL Comment:Testing performed by : [address] [address] Glucose comment 1 Will Repeat Test MARY JANE PHAM Comment:Testing performed by : [address] [address] Glucose comment 2 RN/MD Notified MARY JANE Comment:Testing performed by : [address] [address] Blood 12/03/2024 12:2 5 PM CDT 12/03/2024 12:25 PM CDT us Kenzie Jiménez MD LAB POCT ORDERABLES - DE VICE Final Result MARY JANE [address] [facility] [place] [address] * TRANSTHORACIC ECHO (TTE) COMPLETE W DOPPLER/CF [...] AM Ht(Inch): 61 Wt(Lb): 275.99 BSA: 2.32 Playground Director: Coni Vee RDCS Location: [id number] Order Provider: PATRICK RICE Heart Rate: 76 BMI: 52.14 BP: 130 / 79 Ref Provider: PATRICK RICE PROCEDURES: Echocardiographic Report: ([id number]) Transthoracic complete echo with contrast, 2D, spectral [...] AM Ht(Inch): 61 Wt(Lb): 275.99 BSA: 2.32 Playground Director: Coni Vee RDCS Location: [place] [address] Order Provider:PATRICK RICE Heart Rate: 76 BMI: 52.14 BP: 130 / 79 Ref Provider: PATRICK RICE PROCEDURES: Echocardiographic Report: ([id number]) Transthoracic complete echo withcontrast, 2D, spectral and [...] LA Length 4C 5.56 cm MV A Dif268.00 msec LA Volume BP 41.30 ml MV [...] * POCT glucose (12/03/2024 8:13 AM CDT) [facility] Glucose, POC 159 70 - 199 mg/dL Comment:Testing performed by : [address] [address] Glucose comment 1 Will Repeat Test MARY JANE PHAM Comment:Testing performed by : [address] [address] Glucose comment 2 RN/MD Notified MARY JANE PHAM Comment:Testing performed by : [address] [address] Blood 12/03/2024 8:13 AM CDT 12/03/2024 8:13 AM CDT us Kenzie Jiménez MD LAB POCT ORDERABLES - DE VICE Final Result MARY JANE PHAM [address] [facility] Department [place] [address] * eGFR (12/03/2024 5:13 AM CDT) eGFR [...] last reviewed 2021. Testing performed by: [address] [address] Blood 12/03/2024 5:13 AM CDT 12/03/2024 5:37 AM CDT us Santos Wallace MD LAB BLOOD ORDERABLES Final Res ult MARY JANE [address] [facility] Department [place] [address] * (ABNORMAL) CBC without differential (12/03/2024 5:13 AM CDT) Pathologist [facility] WBC 10.70(H) 3.80 - 9.90 K/cumm Comment:Testing performed by : [address] [address] Hgb 12.1 11.9 - 15.5 g/dL MARY JANE Comment:Testing performed by : [address] [address] Hct 37.8 35.6 - 45.5 % MARY JANE Comment:Testing performed by : [address] [address] Plt 258 150 - 400 K/cumm MARY JANE PHAM Comment:Testing performed by : [address] [address] MPV 9.8 9.1 - 12.3 fL MARY JANE PHAM Comment:Testing performed by : [address], [address] RBC 4.15 3.90 - 5.20 M/cumm MARY JANE PHAM Comment:Testing performed by : [address], [address] MCV 91.1 81.3 - 96.4 fL MARY JANE Comment:Testing performed by : [address], [address] MCH 29.2 27.1 - 33.3 pg MARY JANE PHAM Comment:Testing performed by : [address] [address] MCHC 32.0(L) 32.3 - 35.7 g/dL MARY JANE Comment:Testing performed by : [address], [address] RDW CV 13.7 11.1 - 14.9 % MARY JANE Comment:Testing performed by : [address], [address] RDW SD 45.7 35.7 - 48.1 fL MARY JANE Comment:Testing performed by : [address], [address] NRBC abs 0.00 0.00 - 0.01 K/cumm MARY JANE Comment:Testing performed by : [address], [address] Blood 12/03/2024 5:13 AM CDT 12/03/2024 5:42 AM CDT us Santos Wallace MD LAB BLOOD ORDERABLES Final Res ult MARY JANE PHAM [address] [facility] Department [place] [address] * Basic metabolic panel (12/03/2024 5:13 AM CDT) Sodium 139 135 - 145 mmol/L Comment:Testing performed by : [address] [address] Potassium, pl 3.8 3.3 - 4.9 mmol/L MARY JANE Comment:Testing performed by : [address] [address] Chloride 101 97 - 110 mmol/L MARY JANE Comment:Testing performed by : [address] [address] CO2 27 22 - 32 mmol/L MARY JANE Comment:Testing performed by : [address], [place]., [address] Anion gap 11 2 - 15 mmol/L MARY JANE Comment:Testing performed by : [address] [address] BUN 16 6 - 25 mg/dL MARY JANE Comment:Testing performed by : [address], [place]., [address] Creatinine 0.70 0.60 - 1.10 mg/dL MARY JANE Comment:Testing performed by : [address] [address] Glucose 170 70 - 199 mg/dL MARY JANE Comment: [...] was last revised 2022. Testing performed by: [address] [address] Calcium 9.5 8.5 - 10.3 mg/dL MARY JANE Comment:Testing performed by : [address] [address] Blood 12/03/2024 5:13 AM CDT 12/03/2024 5:37 AM CDT Santos Wallace MD LAB BLOOD ORDERABLES Final Res ult Performing Organization Address [facility]/ZIP Co de Phone Number MARY JANE [address] [address] * POCT glucose (12/02/2024 11:12 PM CDT) [facility] Glucose, POC 108 70 - 199 mg/dL Comment:Testing performed by : [address] [address] Glucose comment 1 RN/MD Notified MARY JANE Comment:Testing performed by : [address] [address] Blood 12/02/2024 11:1 2 PM CDT 12/02/2024 11:12 PM CDT us Santos Wallace MD LAB POCT ORDERABLES - DEVICE F inal Result Performing Organization Address [facility] [[email or web address]] Co de Phone Number [address] [address] * (ABNORMAL) Troponin T high-sensitivity 6-hour (12/02/2024 10:06 PM CDT) [facility] Trop T hs 24(H) <=14 ng/L Comment: Interpretive Data For further hscTnT resources including the diagnostic algorithm and an aid in interpretation, copy and paste this link: https://nrl.testcatalog.org/show/hsTrop Current Interpretive Data last revised 2020. Testing performed by: [address] [address] Trop T hs delta -1 ng/L MARY JANE Comment:Testing performed by : [address] [address] Trop T hs interp Insignificant MARY JANE PHAM Comment:Testing performed by : [address] [address] Blood 12/02/2024 10:0 6 PM CDT 12/02/2024 10:08 PM CDT us Gil Diez DO LAB BLOOD ORDERABLES Final Result Performing Organization Address City/[facility]/ZIP Co de Phone Number [address] [address] * POCT glucose (12/02/2024 10:03 PM CDT) Pathologist [facility] Glucose, POC 110 70 - 199 mg/dL Comment:Testing performed by : [address] [address] Blood 12/02/2024 10:0 3 PM CDT 12/02/2024 10:03 PM CDT us Santos Wallace MD LAB POCT ORDERABLES - DEVICE F inal Result Performing Organization Address [facility] [[email or web address]] Co de Phone Number [address] [address] * (ABNORMAL) Troponin T high-sensitivity 4-hour (12/02/2024 8:26 PM CDT) Pathologist [facility] Trop T hs 22(H) <=14 ng/L Comment: Interpretive Data For further hscTnT resources including the diagnostic algorithm and an aid in interpretation, copy and paste this link: https://nrl.testcatalog.org/show/hsTrop Current Interpretive Data last revised 2020. Testing performed by: [address] [address] Trop T hs delta -3 ng/L MARY JANE PHAM Comment:Testing performed by : [address] [address] Trop T hs interp Insignificant MARY JANE PHAM Comment:Testing performed by : [address] [address] Blood 12/02/2024 8:26 PM CDT 12/02/2024 8:31 PM CDT us Gil Aguila Diez DO LAB BLOOD ORDERABLES Final Result MARY JANE MH [address] [facility] Department [place] [address] * CT Chest PE (CTA) W Contrast [...] Perfecto Arguello M.D. LB: TAYLOR Report ID: [id number] Reading Location: [id number] Procedure Note Perfecto Arguello MD - 12/02/2024 [...] Perfecto Arguello M.D. LB: LB Report ID: [id number] Reading Location: [place] [address] Patrick Rice DO IMG CT PROCEDURES Final Res ult * Sepsis Lactate w/ Reflex (12/02/2024 6:19 PM CDT) [facility] Sepsis Lactate 1.2 0.7 - 2.0 mmol/L Comment:Testing performed by : [address] [address] Blood 12/02/2024 6:19 PM CDT 12/02/2024 6:22 PM CDT Patrick Rice DO LAB BLOOD ORDERABLES Final Result MARY JANE PHAM [address] [facility] Department [place] [address] * (ABNORMAL) Urinalysis reflex to microscopic and culture Urine (12/02/2024 6:19 PM CDT) Pathologist [facility] Color, ur Yellow Yellow Comment:Testing performed by : [address] [address] Clarity, ur Clear Clear MARY JANE PHAM Comment:Testing performed by : [address] [address] Specific gravity, ur 1.019 1.003 - 1.030 MARY JANE Comment:Testing performed by : [address] [address] pH, urine 7.0 MARY JANE Comment: Interpretive Data U rine pH is affected by diet, medications, systemic acid-base disturbances, and renal tubular function. pH may affect urinary stone formation. For example, urine pH below 6.0 may help reduce the tendency for calcium phosphate stones and pH greater than 6.0 may reduce the tendency for uric acid stone formation. Source: [facility] T-VIPS Current Interpretive Data was last revised on 2017 Testing performed by: [address] [address] Protein, ur ql Negative Negative MARY JANE Comment:Testing performed by : [address] [address] Glucose, ur ql 4+(A) Negative MARY JANE Comment:Testing performed by : [address] [address] Ketones, ur Negative Negative MARY JANE Comment:Testing performed by : [address] [address] Bilirubin, ur Negative Negative MARY JANE Comment:Testing performed by : [address] [address] Blood, ur Negative Negative MARY JANE Comment:Testing performed by : [address] [address] Urobilinogen, ur <2.0 <2.0 mg/dL MARY JANE Comment:Testing performed by : [address] [address] Nitrite, ur Negative Negative MARY JANE Comment:Testing performed by : [address] [address] Leukocyte esterase, ur Negative Negative MARY JANE Comment:Testing performed by : [address] [address] UA reflex comment Reflex conditions for microscopic UA and culture not met. MARY JANE Comment:Testing performed by : [address] [place] [address] Urine 12/02/2024 6:19 PM CDT 12/02/2024 6:22 PM CDT Patrick Les Sousahu LAB MICROBIOLOGY - GENERAL ORDERABLES Final Result [facility] [address] [facility] Department [place] [address] * (ABNORMAL) Drugs of Abuse Screen, Urine without Confirmation (12/02/2024 6:19 PM CDT) Pathologist [facility] Amphetamine, ur Not Detected CutOff 500ng/mL Comment: Interpretive Data - Amphetamines: Samples containing greater than 500 ng/mL d-methamphetamine or other cross-reacting amphetamine compounds are reported as positive. Amphetamine immunoassays are subject to significant false positive rates due to cross-reactivity of non-amphetamine drugs. Confirmatory testing required for definitive results. Current Interpretive Data was last reviewed 2022. Testing performed by: [address] [address] Barbiturates, ur Not Detected CutOff 200ng/mL [facility] Comment: Interpretive Data - Barbiturates: Samples containing greater than 200 ng/mL secobarbital or other cross-reacting barbiturate compounds are reported as positive. False positive and false negative results are possible. Confirmatory testing required for definitive results. Current Interpretive Data was last reviewed 2022. Testing performed by: [address] [address] Benzodiazepines, ur Not Detected CutOff 100ng/mL [facility] Comment: Interpretive Data - Benzodiazepines: Samples containing greater than 100 ng/mL nordiazepam or other cross-reacting compounds are reported as positive. False positive and false negative results are possible. Confirmatory testing required for definitive results. Current Interpretive Data was last reviewed 2022. Testing performed by: [address] [address] Cannabinoids, ur Not Detected CutOff 50 ng/mL MARY JANE Comment: Interpretive Data - Cannabinoids: Samples containing greater than 50 ng/mL delta-9 THC -COOH or other cross- reacting compounds are reported as positive. False positive and false negative results are possible. Confirmatory testing required for definitive results. Current Interpretive Data was last reviewed 2022. Testing performed by: [address], [place]., [address] Cocaine, ur Not Detected CutOff 150ng/mL [facility] Comment: Interpretive Data - Cocaine: Samples containing greater than 150 ng/mL benzoylecgonine or other cross- reacting compounds are reported as positive. False positive and false negative results are possible. Confirmatory testing required for definitive results. Current Interpretive Data was last reviewed 2022. Testing performed by: [address], [place]., [address] Fentanyl, Ur Not Detected Cutoff 1 ng/mL [facility] Comment: Interpretive Data - Fentanyl: Samples containing greater than 1 ng/mL fentanyl or other cross-reacting fentanyl compounds are reported as positive. False positive and false negative results are possible. Confirmatory testing required for definitive results. Current Interpretive Data was last reviewed 2022. Testing performed by: [facility], [address] [place] [address]., [address] Methadone, ur Not Detected CutOff 300ng/mL [facility] Comment: Interpretive Data - Methadone: Samples containing greater than 300 ng/mL d,l-methadone or other cross-reacting compounds are reported as positive. False positive and false negative results are possible. Confirmatory testing required for definitive results. Current Interpretive Data was last reviewed 2022. Testing performed by: [address] [address] Opiates, ur Screen Positive, presumptive (A) CutOff 300ng/mL [facility] Comment: Interpretive Data - Opiates: Samples containing greater than 300 ng/mL morphine or other cross-reacting compounds are reported as positive. False positive and false negative results are possible. Confirmatory testing required for definitive results. Current Interpretive Data was last reviewed 2022. Testing performed by: [address], [place]., [address] Oxycodone, ur Not Detected CutOff 100ng/mL [facility] Comment: Interpretive Data - Oxycodone: Samples containing greater than 100 ng/mL oxycodone or other cross-reacting compounds are reported as positive. False positive and false negative results are possible. Confirmatory testing required for definitive results. Current Interpretive Data was last reviewed 2022. Testing performed by: [address] [address] Phencyclidine, ur Not Detected CutOff 25 ng/mL MARY JANE Comment: Interpretive Data - Phencyclidine: Samples containing greater than 25 ng/mL phencyclidine or other cross-reacting compounds are reported as positive. False positive and false negative results are possible. Confirmatory testing required for definitive results. Current Interpretive Data was last reviewed 2022. Testing performed by: [address] [address] Urine Creatinine 64 mg/dL MARY JANE Comment: Interpretive Data Urine Creatinine: < 10 mg/dL is extremely dilute = or > 10 but < 20 mg/dL is dilute = or > 20 mg/dL is normal Current Interpretive Data was last revised on 2017. Testing performed by: [address] [address] Urine 12/02/2024 6:19 PM CDT 12/02/2024 6:22 PM CDT Narrative MARY JANE - 12/02/2024 6:46 PM CDT Drug of Abuse screening is performed by immunoassay for medical purposes only. This is not to be used for Pain Management purposes. Patrick Rice DO LAB URINE ORDERABLES Final Result MARY JANE [address] [facility] [place] [address] * (ABNORMAL) D-dimer, quantitative (12/02/2024 6:19 PM [...] revised on 2019. Testing performed by: [address] [address] Blood 12/02/2024 6:19 PM CDT 12/02/2024 6:22 PM CDT us Patrick Rice DO LAB BLOOD ORDERABLES Final Result Performing Organization Address City/[facility]/ZIP Co de Phone Number [place] [address] [facility] [place] [address] * (ABNORMAL) Troponin T high-sensitivity 2-hour (12/02/2024 5:53 PM CDT) Trop T hs 23(H) <=14 ng/L Comment: Interpretive Data For further hscTnT resources including the diagnostic algorithm and an aid in interpretation, copy and paste this link: https://nrl.testcatalog.org/show/hsTrop Current Interpretive Data last revised 2020. Testing performed by: [address] [address] Trop T hs delta -2 ng/L MARY JANE Comment:Testing performed by : [address] [address] Trop T hs interp Insignificant MARY JANE Comment:Testing performed by : [address] [address] Blood 12/02/2024 5:53 PM CDT 12/02/2024 5:55 PM CDT us Gil Diez DO LAB BLOOD ORDERABLES Final Result Performing Organization Address City/[facility]/ZIP Co de Phone Number [facility] [address] [facility] [place] [address] * POCT glucose (12/02/2024 4:25 PM CDT) [facility] Glucose, POC 195 70 - 199 mg/dL Comment:Testing performed by : [address] [address] Blood 12/02/2024 4:25 PM CDT 12/02/2024 4:25 PM CDT Notinfile Unknown LAB POCT ORDERABLES - DEVICE F inal Result Performing Organization Address [facility] de Phone Number MARY JANE [address] [place] [address] * (ABNORMAL) Troponin T high-sensitivity series (baseline, 2hr, 4hr, 6hr) (12/02/2024 3:57 PM CDT) [facility] Trop T hs 25(H) <=14 ng/L Comment: Interpretive Data For further hscTnT resources including the diagnostic algorithm and an aid in interpretation, copy and paste this link: https://nrl.testcatalog.org/show/hsTrop Current Interpretive Data last revised 2020. Testing performed by: [facility], [address] [place] [address]., [address] Blood 12/02/2024 3:57 PM CDT 12/02/2024 4:11 PM CDT Patrick Rice DO LAB BLOOD ORDERABLES Final Result Performing Organization Address [facility] [[email or web address]] Co de Phone Number [address] [place] [address] * eGFR (12/02/2024 3:57 PM CDT) [facility] eGFR >90 >=60 mL/min/1. 73 [...] last reviewed 2021. Testing performed by: [address] [address] Blood 12/02/2024 3:57 PM CDT 12/02/2024 4:11 PM CDT Patrick Rice DO LAB BLOOD ORDERABLES Final Result MARY JANE [address] Department [place] [address] * (ABNORMAL) Differential, auto (12/02/2024 3:57 PM CDT) Neutrophil abs 7.87(H) 1.50 - 6.50 K/cumm Comment:Testing performed by : [address] [address] Imm gran abs 0.05 0.00 - 0.10 K/cumm MARY JANE Comment:Testing performed by : [address] [address] Lymphocyte abs 1.99 0.80 - 3.30 K/cumm MARY JANE Comment:Testing performed by : [address] [address] Monocyte abs 0.54 0.20 - 0.80 K/cumm MARY JANE Comment:Testing performed by : [address] [address] Eosinophil abs 0.10 0.00 - 0.50 K/cumm MARY JANE Comment:Testing performed by : [address] [address] Basophil abs 0.03 0.00 - 0.10 K/cumm MARY JANE Comment:Testing performed by : [address] [address] Neutrophil pct 74.4 % CERPUJA Comment: Interpretive Data Percent cell count reference ranges are not reported, since discordance with absolute values may lead to misinterpretation of CBC data. Current Interpretive Data was last revised on 2017. Testing performed by: [address] [address] Imm gran pct 0.5 % [facility] Comment: Interpretive Data Percent cell count reference ranges are not reported, since discordance with absolute values may lead to misinterpretation of CBC data. Current Interpretive Data was last revised on 2017. Testing performed by: [address] [address] Lymphocyte pct 18.8 % [facility] Comment: Interpretive Data Percent cell count reference ranges are not reported, since discordance with absolute values may lead to misinterpretation of CBC data. Current Interpretive Data was last revised on 2017. Testing performed by: [address] [address] Monocyte pct 5.1 % [facility] Comment: Interpretive Data Percent cell count reference ranges are not reported, since discordance with absolute values may lead to misinterpretation of CBC data. Current Interpretive Data was last revised on 2017. Testing performed by: [address] [address] Eosinophil pct 0.9 % [facility] Comment: Interpretive Data Percent cell count reference ranges are not reported, since discordance with absolute values may lead to misinterpretation of CBC data. Current Interpretive Data was last revised on 2017. Testing performed by: [address] [address] Basophil pct 0.3 % [facility] Comment: Interpretive Data Percent cell count reference ranges are not reported, since discordance with absolute values may lead to misinterpretation of CBC data. Current Interpretive Data was last revised on 2017. Testing performed by: [address] [place]., [address] Blood 12/02/2024 3:57 PM CDT 12/02/2024 4:14 PM CDT Patrick Rice DO LAB BLOOD ORDERABLES Final Result BCEEO [address] [facility] Department [place] [address] * Pro B-type natriuretic peptide (12/02/2024 3:57 [...] Last Revised Date: 2017. Testing performed by: [facility], [address] [place] [address]., [address] Blood 12/02/2024 3:57 PM CDT 12/02/2024 4:11 PM CDT Patrick Les Sousahu LAB BLOOD ORDERABLES Final Result MARY JANE PHAM [address] [facility] Department [place] [address] * (ABNORMAL) CBC with auto differential (12/02/2024 3:57 PM CDT) WBC 10.58(H) 3.80 - 9.90 K/cumm Comment:Testing performed by : [address] [address] Hgb 12.2 11.9 - 15.5 g/dL MARY JANE Comment:Testing performed by : [address] [address] Hct 37.6 35.6 - 45.5 % MARY JANE Comment:Testing performed by : [address] [address] Plt 263 150 - 400 K/cumm MARY JANE Comment:Testing performed by : [address] [address] MPV 10.2 9.1 - 12.3 fL MARY JANE Comment:Testing performed by : [address] [address] RBC 4.19 3.90 - 5.20 M/cumm MARY JANE Comment:Testing performed by : [address] [address] MCV 89.7 81.3 - 96.4 fL MARY JANE Comment:Testing performed by : [address] [address] MCH 29.1 27.1 - 33.3 pg MARY JANE PHAM Comment:Testing performed by : [address] [address] MCHC 32.4 32.3 - 35.7 g/dL MARY JANE PHAM Comment:Testing performed by : [address] [address] RDW CV 13.7 11.1 - 14.9 % MARY JANE PHAM Comment:Testing performed by : [address] [address] RDW SD 45.0 35.7 - 48.1 fL MARY JANE PHAM Comment:Testing performed by : [address] [address] NRBC abs 0.00 0.00 - 0.01 K/cumm MARY JANE PHAM Comment:Testing performed by : [address] [address] Blood 12/02/2024 3:57 PM CDT 12/02/2024 4:14 PM CDT Patrick Rice DO LAB BLOOD ORDERABLES Final Result MARY JANE [facility] Department [place] [address] * (ABNORMAL) Comprehensive metabolic panel (12/02/2024 3:57 PM CDT) Sodium 139 135 - 145 mmol/L Comment:Testing performed by : [address] [address] Potassium, pl 4.5 3.3 - 4.9 mmol/L MARY JANE Comment:Testing performed by : [address] [address] Chloride 101 97 - 110 mmol/L MARY JANE Comment:Testing performed by : [address] [address] CO2 26 22 - 32 mmol/L MARY JANE Comment:Testing performed by : [address] [address] Anion gap 12 2 - 15 mmol/L MARY JANE Comment:Testing performed by : [address] [address] BUN 17 6 - 25 mg/dL MARY JANE PHAM Comment:Testing performed by : [address] [address] Creatinine 0.60 0.60 - 1.10 mg/dL MARY JANE PHAM Comment:Testing performed by : [address] [address] Glucose 252(H) 70 - 199 mg/dL MARY [...] was last revised 2022. Testing performed by: [address] [address] Calcium 9.8 8.5 - 10.3 mg/dL MARY JANE Comment:Testing performed by : [address] [address] Bilirubin, total 0.5 0.1 - 1.2 mg/dL MARY JANE Comment:Testing performed by : [address] [address] Protein, pl 7.8 6.5 - 8.5 g/dL MARY JANE Comment:Testing performed by : [address] [address] Albumin 4.0 3.5 - 5.0 g/dL MARY JANE Comment:Testing performed by : [address] [address] Alk phos 79 40 - 130 Units/L MARY JANE Comment:Testing performed by : [address] [address] ALT 23 7 - 45 Units/L MARY JANE Comment:Testing performed by : [address] [address] AST 22 10 - 45 Units/L MARY JANE Comment:Testing performed by : [address] [address] Blood 12/02/2024 3:57 PM CDT 12/02/2024 4:11 PM CDT Patrick Rice DO LAB BLOOD ORDERABLES Final Result MARY JANE [address] [facility] Department [place] [address] * XR Chest 1 Vw Portable (If [...] Wilfrid Valdez M.D. MZ: FAUSTINA Report ID: [id number] Reading Location: [id number] Procedure Note Wilfrid Valdez MD - 12/02/2024 [...] Wilfrid Valdez M.D. MZ: MZ Report ID: [id number] Reading Location: [place] [address] Patrick Rice DO IMG XR PROCEDURES Final Res ult * ECG 12 lead (12/02/2024 3:33 PM CDT) Ventricular Rate EKG/Min 78 BPM [facility] Atrial Rate 78 BPM [facility] PA-Interval (MSEC) 122 ms [facility] QRS-Interval (MSEC) 82 ms [facility] QT-Interval (MSEC) 380 ms [facility] QTc 433 ms [facility] P [place] 7 degrees [facility] R [place] 3 degrees [facility] T [place] 11 degrees [facility] Diagnosis Normal sinus rhythm Normal ECG When compared with ECG of 01-JUL-2024 14:05, No significant change Confirmed by SULTAN MARTINEZ M.D. ([id number]) on 12/03/2024 4:50:33 PM [facility] 12/02/2024 3:33 PM CDT 12/03/2024 4:50 PM CDT Patrick Rice DO ECG ORDERABLES Final Resul t [facility] * Cardiology Document Scan (11/19/2024 11:45 AM [...] Bone mineral density was performed on a HoloProcess Relations Discovery Densitometer. Based on machine cross-calibration and [...] by the International Society of Clinical Densitometry. [id number] us Khris Arthur MD IMG DXA PROCEDURES [...] agrees with it. ACC# Date Time Exam [id number] Aug 19, 2016 14:27:00 [facility] [address]682 Dia Mamm, inc CAD, unilat L Technologist(s): Carla Harris; ; [id number] Aug 19, 2016 15:39:00 [facility] 38383 Breast US unilateral, ltd L ACC# Date Time Exam [id number] Aug 19, 2016 14:27:00 [facility] 23986 Dia Mamm, inc CAD, unilat L Technologist(s): Carla Harris; ; [id number] Aug 19, 2016 15:39:00 [facility] 57568 Breast US unilateral, ltd L EXAMINATION: LEFT [...] SARABIA M.D. on Aug 19 2016 4:20P [id number] Procedure Note Miscellaneous, Not In File / Provider, MD Tyler - 09/17/2016 ANTHONY SARABIA M.D. JUDY RINCON M.D. FINAL REPORT The radiology attending physician has personally reviewed this study, and has reviewed and/or edited this written report and agrees with it. ACC# Date Time Exam [id number] Aug 19, 2016 14:27:00 [facility] [address] Diag Mamm, inc CAD, unilat L Technologist(s): Carla Harris; ; [id number] Aug 19, 2016 15:39:00 [facility] [address]36 Breast US unilateral, ltd L ACC# Date Time Exam [id number] Aug 19, 2016 14:27:00 [facility] [address] Diag Mamm, inc CAD, unilat L Technologist(s): Carla Harris; ; [id number] Aug 19, 2016 15:39:00 [facility] [address] Breast US unilateral, ltd L EXAMINATION: LEFT [...] SARABIA M.D. on Aug 19 2016 4:20P [id number] us Not In File Miscellaneous IMG MAMMO PROCEDURES F inal Result from Last 3 Months or Most Recently Relevant to Health Maintenance Insurance IDPA [facility] MEDIC[facility] Address: [address] [address] [place] [address] [facility] MEDICARE ADVANTAGE IDPA [facility] MEDICARE [facility] Address: [address] [address] [place] [address] Advance Directives For more information, please contact: [phone] Documents on File Type Date Recorded Patient Sports Leadership Instructor Expl anation ADVANCE DIRECTIVE 12/23/2021 2:49 PM Power of Underwear [facility] ADVANCE DIRECTIVE 12/23/2021 2:49 PM Living Will [...] Agents on File Name Relationship Healthcare Agent [facility] p Communication Yunior Marques Daughter Health Care Agent Jimmie Marques Spouse First Alternate Health Care Agent Care Teams Laboratory Development Technician Relationship Specialty Start Date End Date Justen Gale MD [address] [address] PCP - General 10/09/17 Liu Jerez MD Consulting Physician Gastroenterology 07/28/17 [place] [address] [address] [facility] [address] [place] [address] Consulting Physician Pulmonary Disease 08/03/17 Khris Arthur MD [address] [facility] [address] [place] [address] Medical Oncologist/Debug Technician Medical Oncology 10/23/17 [place] [address] [address] [facility] [address] [place] [address] Surgeon Orthopedic Surgery 10/23/17 [place] [address] [address] [facility] [address] [place] [address] Consulting Physician Pain Management 10/23/17 [place] [address] [address] [facility] [address] [place] [address] Referring Physician General Surgery 01/26/18 [place] [address] [address] [facility] [address] [place] [address] Consulting Physician Neurology 01/26/18
--- OUTSIDE RECORDS SUMMARY | 2024-12-28 21:21 | XMS_ITS | Encounter Summary ---
Author Organization [facility] Address [address] [place] [address] Phone Care Team Providers Care Station Supervisor Name Role Phone Justen Gale MD Primary Care Provider [phone] David Roberts APRN, PROPOSAL DEVELOPMENT MANAGER Unavailable Annel Rod MD Unavailable Reason for Visit * Reason Onset Date Comments Medication Refill 08/06/2020 Encounter Details Date Type Department Care Team (Late st Contact Info) Description 08/06/2020 [facility]ill [facility] [place] [phone] Justen Gale MD #[address] [address] Medication Refill Social History Tobacco Use Types [...] elevated [facility] APN, PROPOSAL DEVELOPMENT MANAGER 2 months ago Increased urinary frequency [facility] Pili Mueller APN, PROPOSAL DEVELOPMENT MANAGER 5 months ago Urinary frequency [facility] Pili Mueller APN, PROPOSAL DEVELOPMENT MANAGER 8 months ago Type 2 diabetes mellitus with diabetic polyneuropathy, with long- term current use of insulin (HCC) [facility] P[facility] Mueller APN, PROPOSAL DEVELOPMENT MANAGER 9 months ago [facility] Justen Urbano MD Upcoming Appointments Future Appointments In 6 days Pili Elkins APN, PROPOSAL DEVELOPMENT MANAGER [facility] Laura [facility] - Recent and Past Visits Recent Visits Date Type Provider Dept 07/20/20 Office Visit Pili Elkins APN, PROPOSAL DEVELOPMENT MANAGER [facility] 06/05/20 Office Visit Pili Elkins APN, NETTA [facility] 02/17/20 Office Visit Pili Elkins APN, NETTA [facility] 12/03/19 Office Visit Pili Elkins APN, NETTA [facility] 11/05/19 Telemedicine Justen Gale MD [facility] 07/25/19 Telemedicine [facility] Show[facility] recent visits within past 460 days with a meds authorizing provider and meeting all other requirements Future Appointments Date Type Provider Dept 08/12/20 Appointment Pili Elkins APN, NETTA [facility] Showing future appointments within next 90 days [...] Description 01/13/2025 2:45 PM CDT Office Visit [facility] #2 [place] [address] Pili Elkins APRN, CNP #[address] [id number] David Roberts APRN, NETTA [address] [place] [address] 01/21/2025 2:00 PM CDT Appointment [facility] [address] [place] [address] Annel Rod MD #[address] [place] [address] Discharge Disposition: Discharged to home or Selfcare 03/19/2025 2:00 PM RESISTOR INSPECTOR Office Visit [facility] Endocrinology [facility] #2 [place] [address] Annel Rod MD #[address] [address] 05/29/2025 1:30 PM RESISTOR INSPECTOR Office Visit [facility] - Family Medicine [facility] #2 [place] [address] Justen Gale MD #[address] [address] documented as of this encounter Visit Diagnoses Not on filedocumented in this encounter Additional Health Concerns Infection Onset Date Last Indicated Resolved Time COVID - 19 08/01/2024 08/01/2024 08/01/2024 3:20 PM CDT Respiratory Rule-Out 11/18/2024 11/18/2024 025 7:18 AM CDT Assessment Noted Time PHQ-9 Depression Total Score: 0 07/21/19 21 3:00 PM CDT documented as of this encounter Care Teams Station Supervisor Relationship Specialty Start Date End Date Justen Gale MD #[address] [address] PCP - General Family Medicine 10/17/17 David Roberts, SEWER SYSTEM SUPERVISOR, PROPOSAL DEVELOPMENT MANAGER [address] [place] [address] Nurse Practitioner Advanced Practice Nurse 01/31/22 Annel Rod MD #[address] [facility] [address] [address] [address] Consulting Physician Endocrinology 07/01/22 documented as of this encounter
--- OUTSIDE RECORDS SUMMARY | 2024-12-28 21:21 | XMS_ITS ---
Author Organization [facility] Address [address] [facility] [place] [address] Care Team Providers Care Manager Brand Name Role Phone Justen Gale MD Primary Care Provider [phone] Active Problems Problem Noted Date Diagnosed Date [...]
--- OUTSIDE RECORDS SUMMARY | 2024-12-28 21:21 | XMS_ITS | Encounter Summary ---
Author Organization [facility] Address [address] [place] [address] Phone Care Team Providers Care Configuration Engineer Name Role Phone Justen Gale MD Primary Care Provider [phone] David Roberts APRN, WATER SERVICE DISPATCHER Unavailable Annel Rod MD Unavailable Reason for Visit * Reason Comments Medication Refill Encounter Details Date Type Department Care Team (Late st Contact Info) Description 03/13/2021 Refill [facility] [address] [place] [address] Justen Gale MD #[address] [address] Medication Refill Social History Tobacco [...] No / Unsure 03/02/2021 5:05 PM SURGICAL INSTRUMENT MECHANIC documented as of this encounter Plan of Treatment Upcoming Encounters Date Type Department Care Team (Late st Contact Info) Description 01/13/2025 2:45 PM CDT Office Visit [facility] #2 [facility] [place] [address] Pili Elkins APRN, WATER SERVICE DISPATCHER #[address] [phone] David Roberts APRN, WATER SERVICE DISPATCHER #2 [place] [address] 01/21/2025 2:00 PM CDT [facility] [address] [place] [phone] Annel Rod MD #[address] [phone] Discharge Disposition: Discharged to home or Selfcare 03/19/2025 2:00 PM SURGICAL INSTRUMENT MECHANIC Office Visit [facility] - [place] #2 [place] [address] Annel Rod MD #[address] [phone] 05/29/2025 1:30 PM SURGICAL INSTRUMENT MECHANIC Office Visit [facility] - [place] #2 [facility] [phone] Justen Gale MD #[address] [place] [address] documented as of this encounter Visit Diagnoses Not on filedocumented in this encounter Additional Health Concerns Infection Onset Date Last Indicated Resolved Time COVID - 19 08/01/2024 08/01/2024 08/01/2024 3:20 PM CDT Respiratory Rule-Out 11/18/2024 11/18/2024 025 7:18 AM CDT Assessment Noted Time PHQ-9 Depression Total Score: 0 07/21/19 21 3:00 PM CDT documented as of this encounter Care Teams Configuration Engineer Relationship Specialty Start Date End Date Justen Gale MD [address] [address] PCP - General Family Medicine 10/17/17 David Roberts, VAT PACKER, WATER SERVICE DISPATCHER #[address] [place] [address] Nurse Practitioner Advanced Practice Nurse 01/31/22 Annel Rod MD #[address] [address] Consulting Physician Endocrinology 07/01/22 documented as of this encounter
--- OUTSIDE RECORDS SUMMARY | 2024-12-28 21:21 | XMS_ITS | Encounter Summary ---
Author Organization [facility] Address [address] [place] [address] Phone Care Team Providers Care Fiberglass Boat Maker Name Role Phone Justen Gale MD Primary Care Provider David Roberts APRN, MANNEQUIN DECORATOR Unavailable [phone] Annel Rod MD Unavailable Reason for Visit * Reason Comments Medication Refill Encounter Details Date Type Department Care Team (Late st Contact Info) Description 07/14/2022 Refill [facility] #2 [place] [address] Justen Gale MD #[address] [address] Medication Refill Social History Tobacco Use Types [...] 01/13/2025 2:45 PM CDT Office Visit [facility] PHYS[facility]IAN GROUP UROLOGY #2 [place] [address] Pili Elkins, ALLERGIST IMMUNOLOGIST, MANNEQUIN DECORATOR #[address] [address] David Roberts, ALLERGIST IMMUNOLOGIST, MANNEQUIN DECORATOR #2 [place] [address] 01/21/2025 2:00 PM CDT Appointment [facility] Ultrasound 1 [place] [address] Annel Rod MD #[address] [address] Discharge Disposition: Discharged to home or Selfcare 03/19/2025 2:00 PM RED CROSS EXECUTIVE DIRECTOR Office Visit [facility] [place] #2 [place] [address] Annel Rod MD #[address] [address] 05/29/2025 1:30 PM RED CROSS EXECUTIVE DIRECTOR Office Visit [facility] #2 [place] [address] Justen Gale MD #[address] [address] documented as of this encounter Visit Diagnoses Not on filedocumented in this encounter Additional Health Concerns Infection Onset Date Last Indicated Resolved Time COVID - 19 08/01/2024 08/01/2024 08/01/2024 3:20 PM CDT Respiratory Rule-Out 11/18/2024 11/18/2024 025 7:18 AM CDT Assessment Noted Time PHQ-9 Depression Total Score: 0 07/21/19 21 3:00 PM CDT documented as of this encounter Care Teams Fiberglass Boat Maker Relationship Specialty Start Date End Date Justen Gale MD #[address] [address] PCP - General Family Medicine 10/17/17 David Roberts ALLERGIST IMMUNOLOGIST, MANNEQUIN DECORATOR #2 [place] [address] Nurse Practitioner Advanced Practice Nurse 01/31/22 Annel Rod MD #[address] [address] Consulting Physician Endocrinology 07/01/22 documented as of this encounter
--- OUTSIDE RECORDS SUMMARY | 2024-12-28 21:21 | XMS_ITS | Encounter Summary ---
Author Organization [facility] Address [address] [place] [address] Phone Care Team Providers Care Screen Cutter And Trimmer Name Role Phone Lavonne Hathaway MD Primary Care Provider + [phone] Liu Jerez MD Unavailable [phone] Albert Corbin MD Unavailable [phone] Justen Gale MD Primary Care Provider + [phone] Lavonne Hathaway MD Primary Care Provider + [phone] Justen Gale MD Primary Care Provider + [phone] Khris Arthur MD Unavailable + [phone] Ko Melendez MD Unavailable [phone] John Paul Moyer MD Unavailable Annel Rod MD Unavailable Anali MARSHALL MD, Carlos M. Unavailable [phone] Encounter Details Date Type Department Care Team [...] on file Legal Sex Female 12:24 AM FRUIT GRADER OPERATOR Gender Identity Not on file Sexual [...] COVID: Recovered 02/10/2022 02/10/2022 06/10/2022 3:05 AM FRUIT GRADER OPERATOR Exposure, COVID-19 Comment:Added automatically based on COVID19 lab answers indicating exposure risk 02/11/2022 02/11/2022 02/15/2022 9:06 AM C DT COVID: Suspected 05/14/2022 05/14/2022 05/14/2022 10:41 AM FRUIT GRADER OPERATOR COVID: Suspected 06/07/2022 06/07/2022 06/07/2022 12:28 PM FRUIT GRADER OPERATOR COVID: Suspected 06/21/2022 06/21/2022 06/21/2022 2:12 AM FRUIT GRADER OPERATOR COVID: Suspected 10/05/2022 10/05/2022 10/05/2022 7:40 PM CDT COVID: Suspected 01/04/2024 01/04/2024 01/04/2024 10:30 PM CDT COVID: Suspected 02/14/2024 02/14/2024 02/15/2024 12:36 AM CDT COVID: Suspected 07/01/2024 07/01/2024 07/01/2024 2:53 PM CDT COVID: Suspected 07/01/2024 07/01/2024 07/02/2024 3:05 AM CDT COVID: Suspected 12/08/2024 12/08/2024 12/08/2024 1:50 AM CDT documented as of this encounter Care Teams Screen Cutter And Trimmer Relationship Specialty Start Date End Date Lavonne Hathaway MD [address] [place] [address] [place] [address] PCP - General 08/16/16 08/17/17 Justen Gale MD [address] [place] [facility] [address] [place] [address] PCP - General 08/18/17 08/22/17 Lavonne Hathaway MD [address] [place] [address] [place] [address] PCP - General Family Medicine 08/23/17 10/08/17 Justen Gale MD [address] [place] [address] [place] [address] PCP - General 10/09/17 iLu Jerez MD [address] [place] [address] [place] [address] Consulting Physician Gastroenterology 07/28/17 [place] [address] [address] [place] [address] Consulting Physician Pulmonary Disease 08/03/17 Khris Arthur MD [address] [facility] [address] [place] [address] Medical Oncologist/Ship Loader Medical Oncology 10/23/17 [place] [address] [facility] [address] [place] [address] Surgeon Orthopedic Surgery 10/23/17 [place] [address] [address] [place] [address] Consulting Physician Pain Management 10/23/17 [place] [address] [facility] [address] [place] [address] Referring Physician General Surgery 01/26/18 [place] [address] [facility] [address] [place] [address] Consulting Physician Neurology 01/26/18 documented as of this encounter
--- OUTSIDE RECORDS SUMMARY | 2024-12-28 21:21 | XMS_ITS | Clinical Summary ---
Author Organization [facility] Address [address] [place] [address] Phone Care Team Providers Care Ed Case Manager Name Role Phone Justen Gale MD Primary Care Provider [phone] Allergies Active Allergy Reactions Criticality Noted Date [...] - 6.0 % 09/29/2017 10:28 AM CDT [employer] [facility] EST. AVG GLUCOSE, A1C 186 mg/dL 09/29/2017 10:28 AM CDT [facility] [place] [facility] Blood Venipuncture / Unknown 09/28/2017 8:41 PM CDT 09/28/2017 8:46 PM CDT Narrative [facility] - 09/29/2017 10:28 AM CDT HGB A1C INTERPRETATION NORMAL: <5.7% PRE-DIABETES: 5.7 - 6.4% DIABETES: 6.5% OR GREATER us Francisco Castaneda MD CHEMISTRY ORDERABLES Final Resul t [facility] [place] [facility]# [id number] [address] [facility] [place] [address] * (ABNORMAL) LIPID PANEL (09/28/2017 8:41 PM CDT) CHOLESTEROL 174 <200 mg/dL 09/30/2017 2:45 AM CDT [facility] [place] [facility] TRIGLYCERIDE 109 <150 mg/dL 09/30/2017 2:45 AM CDT [facility] [place] [facility] HDL 45 40 - 59 mg/dL 09/30/2017 2:45 AM CDT [facility] [place] [facility] LDL CALCULATED 107(H) <100 mg/dL 09/30/2017 2:45 AM CDT [facility] [place] [facility] NON-HDL CHOLESTEROL 129 <130 mg/dL 09/30/2017 2:45 AM CDT [facility] [place] [facility] Blood Venipuncture / Unknown 09/28/2017 8:41 PM CDT 09/28/2017 8:46 PM CDT Narrative [facility] - 09/30/2017 2:45 AM CDT [...] Castaneda MD CHEMISTRY ORDERABLES Final Resul t [facility] [place] [facility] [id number] [address] [facility] [place] [address] from Last 3 Months or Most Recently Relevant to Health Maintenance Insurance Advance Directives For more information, please contact: [phone] * Full Code (Latest Code Status on File) Date Activated Date Inactivated Comments 09/29/2017 7:45 AM 09/30/2017 9:14 PM * Full Code Date Activated Date Inactivated Comments 09/29/2017 1:25 AM 09/29/2017 7:45 AM Care Teams Ed Case Manager Relationship Specialty Start Date End Date Justen Gale MD [address] [facility] [address] [place] [address] PCP - General Cardiovascular Disease 09/14/17
--- OUTSIDE RECORDS SUMMARY | 2024-12-28 21:21 | XMS_ITS | Encounter Summary ---
Author Organization [facility] Address [address] [place] [address] Phone Care Team Providers Care Naval Aircrewman Helicopter Name Role Phone Justen Gale MD Primary Care Provider David Roberts APRN, APARTMENT LEASING CONSULTANT Unavailable Annel Rod MD Unavailable Reason for Visit * Reason Comments Medication Refill Encounter Details Date Type Department Care Team (Late st Contact Info) Description 03/05/2023 Refill [facility] - Family Medicine [facility] #2 [place] [address] Pili Elkins APRN, APARTMENT LEASING CONSULTANT #[address] [address] Medication Refill Social History Tobacco [...] discontinued on 10/19/2022 by Justen Gale MD MACY INTERN documented in this encounter Plan of Treatment Upcoming Encounters Date Type Department Care Team (Late st Contact Info) Description 01/13/2025 2:45 PM CDT Office Visit [facility] PHYSICIAN GROUP UROLOGY #2 [place] [address] Pili Elkins APRN, APARTMENT LEASING CONSULTANT #[address] [address] David Roberts APRN, APARTMENT LEASING CONSULTANT #2 [place] [address] 01/21/2025 2:00 PM CDT Appointment [facility] Ultrasound 1 [place] [address] Annel Rod MD #[address] [address] Discharge Disposition: Discharged to home or Selfcare 03/19/2025 2:00 PM PHARMACY INTERN Office Visit [facility] - Endocrinology [facility] #2 [place] [address] Annel Rod MD #[address] [address] 05/29/2025 1:30 PM PHARMACY INTERN Office Visit [facility] #2 [place] [address] Justen Gale MD #[address] [address] documented as of this encounter Visit Diagnoses [...] documented as of this encounter Care Teams Naval Aircrewman Helicopter Relationship Specialty Start Date End Date Justen Gale MD [address] [address] PCP - General Family Medicine 10/17/17 David Roberts, INTERNET MARKETING ASSISTANT, APARTMENT LEASING CONSULTANT #2 [place] [address] Nurse Practitioner Advanced Practice Nurse 01/31/22 Annel Rod MD #[address] [address] Consulting Physician Endocrinology 07/01/22 documented as of this encounter
--- OUTSIDE RECORDS SUMMARY | 2024-12-28 21:21 | XMS_ITS | Encounter Summary ---
Author Organization [facility] Address [address] [place] [address] Phone Care Team Providers Care Research Hydrologist Name Role Phone Justen Gale MD Primary Care Provider David Roberts APRN, DEFENSIVE SECONDARY COACH Unavailable [phone] Annel Rod MD Unavailable Reason for Visit * Reason Comments Medication Refill Encounter Details Date Type Department Care Team (Late st Contact Info) Description 08/30/2022 Refill [facility] - Family Medicine [facility] #2 [place] [address] Justen Gale MD #[address] [address] Medication Refill Social History Tobacco Use Types [...] Gale MD [facility] [place] 03/03/22 Office Visit Pili Elkins APRN, NETTA [facility] [place] 01/03/22 Office Visit Dannielle Berg PAC [facility] [place] 12/07/21 Office Visit Pili Elkins APRN, NETTA [facility] [place] 11/09/21 Office Visit Pili Elkins APRN, NETTA [facility] [place] 10/08/21 Office Visit Angelito Alegria APRN, NETTA [facility] [place] 08/30/21 Office Visit Justen Gale MD [facility] Showing recent visits within past 365 days [...] [facility] PHYSICIAN GROUP UROLOGY #2 [place] [address] Pili Elkins APRN, DEFENSIVE SECONDARY COACH #2 [facility] [address] [place] [address] David Roberts APRN, DEFENSIVE SECONDARY COACH #2 [place] [address] 01/21/2025 2:00 PM CDT [facility] 1 [place] [address] Annel Rod MD #[address] [address] Discharge Disposition: Discharged to home or Selfcare 03/19/2025 2:00 PM CLIENT SUPPORT COORDINATOR Office Visit [facility] - [facility]ology - [place] #2 [place] [address] Annel Rod MD #[address] [place] [address] 05/29/2025 1:30 PM CLIENT SUPPORT COORDINATOR Office Visit [facility] - [facility] Medicine - [place] #2 [facility] [place] [address] Justen Gale MD #[address] [address] documented as of this encounter Visit Diagnoses Not on filedocumented in this encounter Additional Health Concerns Infection Onset Date Last Indicated Resolved Time COVID - 19 08/01/2024 08/01/2024 08/01/2024 3:20 PM CDT Respiratory Rule-Out 11/18/2024 11/18/2024 025 7:18 AM CDT Assessment Noted Time PHQ-9 Depression Total Score: 0 07/21/19 21 3:00 PM CDT documented as of this encounter Care Teams Research Hydrologist Relationship Specialty Start Date End Date Justen Gale MD #2 [facility] [address] [place] [address] PCP - General Family Medicine 10/17/17 David Roberts, ELECTROPLATER AUTOMATIC, DEFENSIVE SECONDARY COACH #2 [place] [address] Nurse Practitioner Advanced Practice Nurse 01/31/22 Annel Rod MD #2 [facility] [address] [place] [address] Consulting Physician Endocrinology 07/01/22 documented as of this encounter
--- OUTSIDE RECORDS SUMMARY | 2024-12-28 21:21 | XMS_ITS | Patient Health Record ---
Author Organization [facility] Address [address] [place] [address] Care Team Providers Care Carbide Tool Maker Name Role Phone Yo DURÁN, Lavonne Primary Care Provider Unavail able Reason For Referral No Information Plan Of Treatment No Information Insurance Providers Payer Name Payer Address Payer Phone Subscriber Number Group Number Insured Name Patient Relationship to Insured Coverage Start Date Coverage End Date [facility] [employer] [address] [address] [place], [place] [id number] Karly Marques Self - patient is the insured
--- OUTSIDE RECORDS SUMMARY | 2024-12-28 21:21 | XMS_ITS | Encounter Summary ---
Author Organization [facility] Address [address] [place] [address] Phone Care Team Providers Care Blacksmith Assistant Name Role Phone Justen Gale MD Primary Care Provider David Roberts APRN, JANITORIAL MANAGER Unavailable Anenl Rod MD Unavailable Reason for Visit * Reason Comments Medication Refill Encounter Details Date Type Department Care Team (Late st Contact Info) Description 08/07/2023 Refill [facility] - Endocr[facility]ology - [place] #2 [place] [address] Annel Rod MD #[address] [address] Medication Refill Social History Tobacco [...] Description 01/13/2025 2:45 PM CDT Office [facility] UR[facility] #2 [place] [address] Pili Elkins APRN, JANITORIAL MANAGER #[address] [address] David Roberts APRN, JANITORIAL MANAGER #2 [place] [address] 01/21/2025 2:00 PM CDT Appointment [facility] Ultrasound 1 [place] [address] Annel Rod MD #[address] [address] Discharge Disposition: Discharged to home or Selfcare 03/19/2025 2:00 PM VBA DEVELOPER Office Visit [facility] - Endocrinology - [place] #2 [place] [address] Annel Rod MD #[address] [place] [address] 05/29/2025 1:30 PM VBA DEVELOPER Office Visit [facility] - Family [facility] #[address] [place] [address] Justen Gale MD #[address] [address] documented as of this encounter Visit Diagnoses Not on filedocumented in this encounter Additional Health Concerns Infection Onset Date Last Indicated Resolved Time COVID - 19 08/01/2024 08/01/2024 08/01/2024 3:20 PM CDT Respiratory Rule-Out 11/18/2024 11/18/2024 025 7:18 AM CDT Assessment Noted Time PHQ-9 Depression Total Score: 8 01/18/20 23 2:24 PM CDT documented as of this encounter Care Teams Blacksmith Assistant Relationship Specialty Start Date End Date Justen Gale MD #[address] [address] PCP - General Family Medicine 10/17/17 David Roberts APRN, NETTA #2 [place] [address] Nurse Practitioner Advanced Practice Nurse 01/31/22 Annel Rod MD #[address] [address] Consulting Physician Endocrinology 07/01/22 documented as of this encounter
--- OUTSIDE RECORDS SUMMARY | 2024-12-28 21:21 | XMS_ITS | Encounter Summary ---
Author Organization [facility] Address [address] [place] [address] Phone Care Team Providers Care Wildland Firefighter Name Role Phone Justen Gale MD Primary Care Provider David Roberts APRN, INFORMATION TECHNOLOGY DIRECTOR Unavailable Annel Rod MD Unavailable Reason for Visit * Reason Comments Medication Refill Encounter Details Date Type Department Care Team (Late st Contact Info) Description 04/13/2023 Refill [facility] - Endocrinology - [place] #2 [place] [address] Annel Rod MD #[address] [address] Medication Refill Social History Tobacco [...] Jennifer Wang, RN - 04/14/2023 10:00 AM MOTOR RACER Requested Prescriptions Pending Prescriptions Disp Refills ??? Continuous Blood Gluc Sensor (FreeStyle Eileen 2 Sensor) Misc [Pharmacy Med Name: FREESTYLE EILEEN 2 SENSOR] 6 Each 1 Sig: APPLY 1 SENSOR AND WEAR FOR 14 DAYS TO CHECK BLOOD SUGAR Next appt: 05/30/2023 R RACER documented in this encounter Plan of Treatment Upcoming Encounters Date Type Department Care Team (Late st Contact Info) Description 01/13/2025 2:45 PM CDT Office Visit [facility] PHYSICIAN GROUP UROLOGY #2 [place] [address] Pili Elkins, ZAMZAM, INFORMATION TECHNOLOGY DIRECTOR #[address] [phone] David Roberts APRN, INFORMATION TECHNOLOGY DIRECTOR #2 [place] [address] 01/21/2025 2:00 PM CDT Appointment [facility] Ultrasound 1 [place] [address] Annel Rod MD #[address] [address] Discharge Disposition: Discharged to home or Selfcare 03/19/2025 2:00 PM MOTOR RACER Office Visit [facility] - Endocrinology - [place] #2 [facility] [place] [address] Annel Rod MD #[address] [address] 05/29/2025 1:30 PM MOTOR RACER Office Visit [facility] #2 [place] [address] Justen Gale MD #[address] [address] documented as of this encounter Visit Diagnoses Not on filedocumented in this encounter Additional Health Concerns Infection Onset Date Last Indicated Resolved Time COVID - 19 08/01/2024 08/01/2024 08/01/2024 3:20 PM CDT Respiratory Rule-Out 11/18/2024 11/18/2024 025 7:18 AM CDT Assessment Noted Time PHQ-9 Depression Total Score: 8 01/18/20 23 2:24 PM CDT documented as of this encounter Care Teams Wildland Firefighter Relationship Specialty Start Date End Date Justen Gale MD #[address] [address] PCP - General Family Medicine 10/17/17 David Roberts, DEVELOPMENT ARCHITECT, INFORMATION TECHNOLOGY DIRECTOR #2 [place] [address] Nurse Practitioner Advanced Practice Nurse 01/31/22 Annel Rod MD #[address] [address] Consulting Physician Endocrinology 07/01/22 documented as of this encounter
--- OUTSIDE RECORDS SUMMARY | 2024-12-28 21:21 | XMS_ITS | Encounter Summary ---
Author Organization [facility] Address [address] [place] [address] Phone Care Team Providers Care Asbestos Hazard Abatement Worker Name Role Phone Justen Gale MD Primary Care Provider David Roberts APRN, CANE FURNITURE MAKER Unavailable Annel Rod MD Unavailable Reason for Visit * Reason Comments Medication Refill Encounter Details Date Type Department Care Team (Late st Contact Info) Description 02/07/2023 Refill [facility] - Family Medicine [facility] #2 [place] [address] Pili Elkins APRN, CANE FURNITURE MAKER #[address] [address] Medication Refill Social History [...] Description 01/13/2025 2:45 PM CDT Office Visit [facility] PHYSICIAN GROUP UROLOGY #2 [place] [address] Pili Elkins, BOTTOM CEMENTER, CANE FURNITURE MAKER #[address] [address] David Roberts, BOTTOM CEMENTER, CANE FURNITURE MAKER #2 [place] [address] 01/21/2025 2:00 PM CDT Appointment [facility] Ultrasound 1 [place] [address] Annel Rod MD #[address] [address] Discharge Disposition: Discharged to home or Selfcare 03/19/2025 2:00 PM TOY ASSEMBLY SUPERVISOR [facility] #2 [place] [address] Annel Rod MD #[address] [address] 05/29/2025 1:30 PM TOY ASSEMBLY SUPERVISOR Office Visit [facility] Family [facility] #2 [place] [address] Justen Gale MD #[address] [address] documented as of this encounter Visit Diagnoses [...] as of this encounter Care Teams Asbestos Hazard Abatement Worker Relationship Specialty Start Date End Date Justen Gale MD #[address] [address] PCP - General Family Medicine 10/17/17 David Roberts, BOTTOM CEMENTER, CANE FURNITURE MAKER #2 [place] [address] Nurse Practitioner Advanced Practice Nurse 01/31/22 Annel Rod MD #[address] [address] Consulting Physician Endocrinology 07/01/22 documented as of this encounter
--- OUTSIDE RECORDS SUMMARY | 2024-12-28 21:21 | XMS_ITS | Encounter Summary ---
Author Organization [facility] Address [address] [place] [address] Phone Care Team Providers Care Grants Specialist Name Role Phone Justen Gale MD Primary Care Provider David Roberts APRN, MATH AND SCIENCES DEPARTMENT CHAIR Unavailable Annel Rod MD Unavailable Reason for Visit * Reason Onset Date Comments Breathing Problem 08/07/2024 Muscle Pain 08/07/2024 Encounter Details Date Type Department Care Team (Late st Contact Info) Description 08/07/2024 Nurse Triage [facility] [address] [place] [address] Justen Gale MD #[address] [address] Breathing Problem; Muscle Pain Social History Tobacco Use Types Packs/Day Years Used Date Smoking Tobacco: Never Smokeless Tobacco: Never Alcohol Use Standard Drinks/Week Comments No 0 (1 standard drink = 0.6 oz pur e alcohol) [facility] Utilities Answer Date Recorded In the [...] you attend chur ch or scientologist services? More than 4 times per year [...] - Questions 1-9 0 07/23 [facility] - Occupational [...] this was discussed with the front desk agent and provider was to be notified in [...] Encouraged caller to bring cell phone and machine assembler for puller over to contact EMS 911 if symptoms worsen [...] (e.g., disoriented, slurred speech) Protocols used: Breathing [id number] * Telephone Encounter - Neha Tomlinson - 08/07/2024 1:30 PM CDT Symptoms: Altered Mental Status, Body Aches, Breathing Trouble Outcome: Warm transfer to an emergent RN NOW! Reason: Trouble walking The caller accepted this outcome. documented in this encounter Plan of Treatment Upcoming Encounters Date Type Department Care Team (Late st Contact Info) Description 01/13/2025 2:45 PM CDT Office Visit [facility] UROLOGY #2 [place] [address] Pili Elkins, ZAMZAM, MATH AND SCIENCES DEPARTMENT CHAIR #[address] [address] David Roberts APRN, MATH AND SCIENCES DEPARTMENT CHAIR #2 [place] [address] 01/21/2025 2:00 PM CDT Appointment [facility] Ultrasound 1 [place] [address] Annel Rod MD #[address] [address] Discharge Disposition: Discharged to home or Selfcare 03/19/2025 2:00 PM MORTGAGE LOAN OFFICER Office Visit [facility] Endocrinology - [place] #[address] [place] [address] Annel Rod MD #[address] [place] [address] 05/29/2025 1:30 PM MORTGAGE LOAN OFFICER Office Visit [facility] Family Medicine [facility] #2 [address] [facility] [place] [address] Justen Gale MD #[address] [address] documented as of this encounter Visit Diagnoses Not on filedocumented in this encounter Additional Health Concerns Infection Onset Date Last Indicated Resolved Time Respiratory Rule-Out 11/18/2024 11/18/2024 025 7:18 AM CDT Assessment Noted Time PHQ-9 Depression Total Score: 0 08/02/19 25 1:09 PM CDT documented as of this encounter Care Teams Grants Specialist Relationship Specialty Start Date End Date Justen Gale MD [address] [address] PCP - General Family Medicine 10/17/17 David Roberts APRN, MATH AND SCIENCES DEPARTMENT CHAIR #2 [place] [address] Nurse Practitioner Advanced Practice Nurse 01/31/22 Annel Rod MD #[address] [address] Consulting Physician Endocrinology 07/01/22 documented as of this encounter
--- OUTSIDE RECORDS SUMMARY | 2024-12-28 21:21 | XMS_ITS | Encounter Summary ---
Author Organization [facility] Address [address] [place] [address] Phone Care Team Providers Care Passenger Service Supervisor Name Role Phone Justen Gale MD Primary Care Provider David Roberts APRN, ENGLISH FACULTY MEMBER Unavailable Annel Rod MD Unavailable Reason for Visit * Reason Onset Date Comments Sore Throat 06/29/2020 Encounter Details Date Type Department Care Team (Late st Contact Info) Description 06/29/2020 Telephone [facility] [place] [place] [address] [place] [address] Justen Gale MD #[address] [address] Sore Throat Social History Tobacco Use Types [...] COVID-19? No / Unsure 06/29/2020 8:43 AM TEA TASTER documented as of this encounter Miscellaneous Notes * Telephone Encounter - Gail Lucero RN - 06/29/2020 3:53 PM CST Attempted to call mailbox is full. Pt does not need testing TASTER * Telephone Encounter - Vince Hermosillo MD - 06/29/2020 3:13 PM CST No covid testing needed. If the er thought that it was warranted then they would have done this. TASTER * Telephone Encounter - Marlys Sorensen RN - 06/29/2020 8:36 AM CST Patient calling. Patient is calling to schedule Hospital/ED/Prompt-Care follow up appointment. Hospital/ED/Prompt-Care Site: [facility] ED Records Requested: Yes Reason for Hospitalization/ED/Prompt-Care [...] f/up and yearly PAP appointments? Please advise. TASTER documented in this encounter Plan of Treatment Upcoming Encounters Date Type Department Care Team (Late st Contact Info) Description 01/13/2025 2:45 PM CDT Office Visit [facility] UROLOGY #2 [place] [address] Pili Elkins, UI DEVELOPER DESIGNER, ENGLISH FACULTY MEMBER #[address] [address] David Roberts APRN, ENGLISH FACULTY MEMBER #2 [place] [address] 01/21/2025 2:00 PM CDT Appointment [facility] Ultrasound 1 [place] [address] Annel Rod MD #[address] [address] Discharge Disposition: Discharged to home or Selfcare 03/19/2025 2:00 PM TEA TASTER Office Visit [facility] [place] Endocrinology [facility] #2 [address] [facility] [place] [address] Annel Rod MD #[address] [address] 05/29/2025 1:30 PM TEA TASTER Office Visit [facility] [place] Family Medicine [facility] [place] [facility] #2 [place] [address] Justen Gale MD #[address] [address] documented as of this encounter Visit Diagnoses Not on filedocumented in this encounter Additional Health Concerns Infection Onset Date Last Indicated Resolved Time COVID - 19 08/01/2024 08/01/2024 08/01/2024 3:20 PM CDT Respiratory Rule-Out 11/18/2024 11/18/2024 025 7:18 AM CDT Assessment Noted Time PHQ-9 Depression Total Score: 0 09/08/19 19 1:00 PM CDT documented as of this encounter Care Teams Passenger Service Supervisor Relationship Specialty Start Date End Date Justen Gale MD #[address] [address] PCP - General Family Medicine 10/17/17 David Roberts UI DEVELOPER DESIGNER, ENGLISH FACULTY MEMBER #2 [place] [address] Nurse Practitioner Advanced Practice Nurse 01/31/22 Annel Rod MD #[address] [place] [address] Consulting Physician Endocrinology 07/01/22 documented as of this encounter
--- OUTSIDE RECORDS SUMMARY | 2024-12-28 21:21 | XMS_ITS | Encounter Summary ---
Author Organization [facility] Address [address] [place] [address] Phone Care Team Providers Care Inside Sales Person Name Role Phone Justen Gale MD Primary Care Provider David Roberts APRN, CONSUMER LOAN UNDERWRITER Unavailable Annel Rod MD Unavailable Encounter Details Date Type Department Care Team (Late st Contact Info) Description 06/05/2020 [facility] [address] [place] [address] Pili Elkins APRN, CONSUMER LOAN UNDERWRITER #[address] [address] Frequency of micturition Social History [...] COVID-19? No / Unsure 2020 11:37 AM ART CONSULTANT documented as of this encounter Plan of Treatment Upcoming Encounters Date Type Department Care Team (Late st Contact Info) Description 01/13/2025 2:45 PM CDT Office Visit [facility] UR[facility]Y #2 [place] [address] Pili Elkins APRN, CONSUMER LOAN UNDERWRITER #[address] [address] David Roberts APRN, CONSUMER LOAN UNDERWRITER #2 [place] [address] 01/21/2025 2:00 PM CDT [facility] [address] [place] [address] Annel Rod MD #[address] [place] [address] Discharge Disposition: Discharged to home or Selfcare 03/19/2025 2:00 PM ART CONSULTANT Office Visit [facility] - Endocrinology [facility] #2 [place] [address] Annel Rod MD #[address] [address] 05/29/2025 1:30 PM ART CONSULTANT Office Visit [facility] - Family Medicine - [place] #2 [place] [address] Justen Gale MD #[address] [address] documented as of this encounter Procedures Procedure Name Priority Date/Time Associated Diagnosis Comments URINALYSIS REFLEX IF INDICATED BY ABNORMAL RESULTS Routine 06/05/2020 4:45 PM ART CONSULTANT Frequency of micturition documented in this encounter Results * (ABNORMAL) URINALYSIS REFLEX IF INDICATED BY ABNORMAL RESULTS (06/05/2020 4:45 PM ART CONSULTANT) SPECIFIC GRAVITY 1.020 1.003 - 1.030 06/05/2020 5:19 PM ART CONSULTANT [facility] URINE PH 5.0 5.0 - 9.0 06/05/2020 5:19 PM [facility] WBC ESTERASE Negative Negative 06/05/2020 5:19 PM [facility] NITRITE Negative Negative 06/05/2020 5:19 PM [facility] PROTEIN, RANDOM URINE Negative Negative 06/05/2020 5:19 PM ART CONSULTANT [facility] URINE GLUCOSE, QUAL Negative Negative 06/05/2020 5:19 PM ART CONSULTANT [facility] URINE KETONES Negative Negative 06/05/2020 5:19 PM [facility] UROBILINOGEN Normal Normal mg/dL 06/05/2020 5:19 PM [facility] URINE BILIRUBIN Negative Negative 5:19 PM [facility] URINE BLOOD 25 /uL(A) Negative leandro/ul 06/05/2020 5:19 PM [facility] URINALYSIS COLOR Yellow 06/05/19 5:19 PM [facility] URINALYSIS CLARITY Clear 06/05/2020 5:19 PM [facility] WBC (Urine) 0-5 Negative, 0-5 /hpf 06/05/2020 5:19 PM [facility] URINE RBC'S 3-5(A) Negative, 0-2 /hpf 06/05/2020 5:19 PM ART CONSULTANT [facility] EPITHELIAL CELLS Small amount /lpf 2020 5:19 PM ART CONSULTANT [facility] BACTERIA, URINE Few(A) Negative /hpf 06/05/2020 5:19 PM ART CONSULTANT [facility] Urine URINE SPECIMEN / Unknown Non-Phlebotomy Collection / Unknown 06/05/2020 4:45 PM ART CONSULTANT 06/05/2020 5:00 PM ART CONSULTANT us Pili Elkins COMPUTER TECHNICAL SUPPORT SPECIALIST, CONSUMER LOAN UNDERWRITER URINE ORDERABLES Fin al Result [facility] #1 [place] [address] documented in this encounter Visit Diagnoses Diagnosis [...] of this encounter Care Teams Inside Sales Person Relationship Specialty Start Date End Date Justen Gale MD #2 [facility] [address] [place] [address] PCP - General Family Medicine 10/17/17 David Roberts APRN, CONSUMER LOAN UNDERWRITER #2 [place] [address] Nurse Practitioner Advanced Practice Nurse 01/31/22 Annel Rod MD #2 [facility] [address] [place] [address] Consulting Physician Endocrinology 07/01/22 documented as of this encounter
--- OUTSIDE RECORDS SUMMARY | 2024-12-28 21:21 | XMS_ITS | Encounter Summary ---
Author Organization [facility] Address [address] [place] [address] Phone Care Team Providers Care Teacher Music Name Role Phone Justen Gale MD Primary Care Provider [phone] David Roberts APRN, SPACE TECHNOLOGIST Unavailable [phone] Annel Rod MD Unavailable Reason for Visit * Reason Onset Date Comments Advice Only 08/19/2024 Follow-up 08/19/2024 Encounter Details Date Type Department Care Team (Late st Contact Info) Description 08/19/2024 Telephone [facility]2 [place] [address] Justen Gale MD #[address] [address] Advice Only; Follow-up Social History Tobacco Use [...] you attend chur ch or samaritan services? More than 4 times [...] 0 07/23 [facility] - Occupational Stress Questionnaire Answer Date [...] living in a assisted (including now)? No 08/06/2024 Education Answer Date [...] visit * Telephone Encounter - Angelito Alegria, INSOLE TAPER, SPACE TECHNOLOGIST - 08/19/2024 9:04 AM CDT Forwarding * Telephone Encounter - Isaura Weiss RN - 08/19/2024 8:37 AM CDT Situation: Strep throat follow up Background: Patient contacting PCP office. Patient was seen in ED on 08/09 and 08/12 in [place] (records in chart). Diagnosed with strep. Assessment: [...] CDT Symptom: Sore Throat Outcome: Transfer to prototype carpenter queue Reason: Caller denied all higher acuity questions The caller accepted this outcome. Caller Denied: * Struggling for each breath (severe trouble breathing) * Can't swallow saliva (drooling) documented in this encounter Plan of Treatment Upcoming Encounters Date Type Department Care Team (Late st Contact Info) Description 01/13/2025 2:45 PM CDT Office Visit [facility] #2 [place] [address] Pili Elkins APRN, SPACE TECHNOLOGIST #[address] [address] David Roberts APRN, SPACE TECHNOLOGIST #2 [place] [address] 01/21/2025 2:00 PM CDT [facility] 1 [place] [address] Annel Rod MD #[address] [address] Discharge Disposition: Discharged to home or Selfcare 03/19/2025 2:00 PM WORKDAY DIRECTOR Office Visit [facility] - Endocrinology [facility] #2 [place] [address] Annel Rod MD #[address] [address] 05/29/2025 1:30 PM WORKDAY DIRECTOR Office Visit [facility] - Family Medicine [facility] #2 [place] [address] Justen Gale MD #[address] [address] documented as of this encounter Visit Diagnoses Not on filedocumented in this encounter Additional Health Concerns Infection Onset Date Last Indicated Resolved Time Respiratory Rule-Out 11/18/2024 11/18/2024 025 7:18 AM CDT Assessment Noted Time PHQ-9 Depression Total Score: 0 08/02/19 25 1:09 PM CDT documented as of this encounter Care Teams Teacher Music Relationship Specialty Start Date End Date Justen Gale MD #[address] [address] PCP - General Family Medicine 6/26/18 David Roberts APRN, CNP #2 [place] [address] Nurse Practitioner Advanced Practice Nurse 01/31/22 Annel oRd MD #2 [facility] [phone] Consulting Physician Endocrinology 07/01/22 documented as of this encounter
--- OUTSIDE RECORDS SUMMARY | 2024-12-28 21:21 | XMS_ITS | Encounter Summary ---
Author Organization [facility] Address [address] [place] [address] Phone Care Team Providers Care Electrode Cleaner Name Role Phone Justen Gale MD Primary Care Provider David Roberts APRN, PRESCHOOL TEACHER AIDE Unavailable [phone] Annel Rod MD Unavailable Reason for Visit * Reason Comments Medication Refill Encounter Details Date Type Department Care Team (Late st Contact Info) Description 02/17/2021 Refill [facility] - Family [facility] #2 [place] [address] Justen Gale MD #[address] [address] Medication Refill Social History Tobacco Use Types [...] Mcgee 06/05/20 Office Visit Pili Elkins APRN, PRESCHOOL TEACHER AIDE [facility] Showing recent visits within past 365 days and meeting all other requirements Future Appointments Date Type Provider Dept 03/02/21 Appointment Vince Hermosillo MD [facility] Showing future appointments within next 90 days and meeting all other requirements documented in this encounter Plan of Treatment Upcoming Encounters Date Type Department Care Team (Late st Contact Info) Description 01/13/2025 2:45 PM CDT Office Visit [facility] PHYSICIAN [facility] UROLOGY #2 [place] [address] Pili Elkins APRN, PRESCHOOL TEACHER AIDE #2 [facility] [address] [place] [address] David Roberts APRN, PRESCHOOL TEACHER AIDE #2 [place] [address] 01/21/2025 2:00 PM CDT [facility] 1 [place] [address] Annel Rod MD #[address] [phone] Discharge Disposition: Discharged to home or Selfcare 03/19/2025 2:00 PM TEST AND BALANCE ENGINEER Office Visit [facility] - Endocrinology [facility] #2 [place] [address] Annel Rod MD #[address] [address] 05/29/2025 1:30 PM TEST AND BALANCE ENGINEER Office Visit [facility] - Family Medicine - [place] #2 [place] [address] Justen Gale MD #2 [facility] [address] [place] [address] documented as of this encounter Visit Diagnoses Not on filedocumented in this encounter Additional Health Concerns Infection Onset Date Last Indicated Resolved Time COVID - 19 08/01/2024 08/01/2024 08/01/2024 3:20 PM CDT Respiratory Rule-Out 11/18/2024 11/18/2024 025 7:18 AM CDT Assessment Noted Time PHQ-9 Depression Total Score: 0 07/21/19 21 3:00 PM CDT documented as of this encounter Care Teams Electrode Cleaner Relationship Specialty Start Date End Date Justen Gale MD #[address] [address] PCP - General Family Medicine 10/17/17 David Roberts, POUCH MAKER, PRESCHOOL TEACHER AIDE #2 [place] [address] Nurse Practitioner Advanced Practice Nurse 01/31/22 Annel Rod MD #[address] [address] Consulting Physician Endocrinology 07/01/22 documented as of this encounter
--- OUTSIDE RECORDS SUMMARY | 2024-12-28 21:21 | XMS_ITS | Encounter Summary ---
Author Organization [facility] Address [address] [place] [address] Phone Care Team Providers Care Rn Ortho Name Role Phone Justen Gale MD Primary Care Provider [phone] David Roberts APRN, ELEMENTARY SCIENCE TEACHER Unavailable Annel Rod MD Unavailable Reason for Visit * Reason Comments Medication Refill Encounter Details Date Type Department Care Team (Late st Contact Info) Description 07/12/2022 Refill [facility] - Family Medicine [facility] #2 [place] [address] Justen Gale MD #[address] [address] Medication Refill Social History Tobacco Use Types [...] Office Visit Pili Elkins APRN, NETTA [facility] [place] 05/02/22 Office Visit Justen Gale MD [facility] [place] 03/03/22 Office Visit Pili Elkins APRN, ELEMENTARY SCIENCE TEACHER [facility] [place] 01/03/22 Office Visit Dannielle Berg PAC [facility] [place] 12/07/21 Office Visit Pili Elkins APRN, NETTA [facility] [place] 11/09/21 Office Visit Pili Elkins APRN, NETTA [facility] [place] 10/08/21 Office Visit Angelito Alegria APRN, NETTA [facility] [place] 08/30/21 Office Visit [facility] visits within past 365 days and meeting all other requirements Future Appointments No visits were found meeting these conditions. Showing future appointments within next 90 days and meeting all other requirements documented in this encounter Plan of Treatment Upcoming Encounters Date Type Department Care Team (Late st Contact Info) Description 01/13/2025 2:45 PM CDT Office Visit [facility] PHYSICIAN [facility] UROLOGY #2 [place] [address] Pili Elkins APRN, ELEMENTARY SCIENCE TEACHER #[address] [address] David Roberts APRN, ELEMENTARY SCIENCE TEACHER #2 [place] [address] 01/21/2025 2:00 PM CDT [facility] 1 [place] [address] Annel Rod MD #[address] [address] Discharge Disposition: Discharged to home or Selfcare 03/19/2025 2:00 PM DOCK SUPERVISOR Office Visit [facility] - Endocrinology [facility] #2 [place] [address] Annel Rod MD #[address] [address] 05/29/2025 1:30 PM DOCK SUPERVISOR Office Visit [facility] - Family Medicine - [place] #2 [place] [address] Justen Gale MD #[address] [address] documented as of this encounter Visit Diagnoses Not on filedocumented in this encounter Additional Health Concerns Infection Onset Date Last Indicated Resolved Time COVID - 19 08/01/2024 08/01/2024 08/01/2024 3:20 PM CDT Respiratory Rule-Out 11/18/2024 11/18/2024 025 7:18 AM CDT Assessment Noted Time PHQ-9 Depression Total Score: 0 07/21/19 21 3:00 PM CDT documented as of this encounter Care Teams Rn Ortho Relationship Specialty Start Date End Date Justen Gale MD #2 [facility] [address] [place] [address] PCP - General Family Medicine 10/17/17 David Roberts APRN, ELEMENTARY SCIENCE TEACHER #2 [place] [address] Nurse Practitioner Advanced Practice Nurse 01/31/22 Annel Rod MD #2 [facility] [address] [place] [address] Consulting Physician Endocrinology 07/01/22 documented as of this encounter
--- OUTSIDE RECORDS SUMMARY | 2024-12-28 21:21 | XMS_ITS | Encounter Summary ---
Author Organization [facility] Address [address] [place] [address] Phone Care Team Providers Care Debt Management Counselor Name Role Phone Justen Gale MD Primary Care Provider David Roberts APRN, PUBLIC POLICY ANALYST Unavailable Annel Rod MD Unavailable Reason for Visit * Reason Onset Date Comments Pain 09/23/2024 Encounter Details Date Type Department Care Team (Late st Contact Info) Description 09/23/2024 Telephone [facility] [address] [place] [address] Justen Gale MD [address] [address] Pain Social History Tobacco Use Types Packs/Day Years Used Date Smoking Tobacco: Never Smokeless Tobacco: Never Alcohol Use Standard Drinks/Week Comments No 0 (1 standard drink = 0.6 oz pur e alcohol) [facility] Utilities Answer Date Recorded In the past 12 months has [employer] electric, gas, oil, or water company threatened [...] How often do you attend chur or adventism services? More than 4 times [...] Total Score - Questions 1-9 0 07/23 [facility] - Occupational [...] - patient has RA Outcome: Transfer to piping engineer queue Reason: Caller denied all higher acuity questions The caller accepted this outcome. Caller Denied: * Chest pain * Headache * Eye pain * Abdominal pain * Genital pain documented in this encounter Plan of Treatment Upcoming Encounters Date Type Department Care Team (Late st Contact Info) Description 01/13/2025 2:45 PM CDT Office Visit [facility] #[address] [place] [address] Pili Elkins APRN, PUBLIC POLICY ANALYST #[address] [address] David Roberts APRN, PUBLIC POLICY ANALYST [address] [place] [address] 01/21/2025 2:00 PM CDT Appointment [facility] Ul[facility]ound [address] [place] [address] Annel Rod MD #[address] [address] Discharge Disposition: Discharged to home or Selfcare 03/19/2025 2:00 PM CAREER DEVELOPMENT COUNSELOR Office Visit [facility] - [facility] - [place] [address] [place] [address] Annel Rod MD [address] [address] 05/29/2025 1:30 PM CAREER DEVELOPMENT COUNSELOR Office Visit [facility] Family Medicine [facility] [address] [place] [address] Justen Gale MD [address] [address] documented as of this encounter Visit Diagnoses Not on filedocumented in this encounter Additional Health Concerns Infection Onset Date Last Indicated Resolved Time Respiratory Rule-Out 11/18/2024 11/18/2024 025 7:18 AM CDT Assessment Noted Time PHQ-9 Depression Total Score: 0 08/02/19 25 1:09 PM CDT documented as of this encounter Care Teams Debt Management Counselor Relationship Specialty Start Date End Date Justen Gale MD [address] [address] PCP - General Family Medicine 10/17/17 David Roberts APRN, PUBLIC POLICY ANALYST [address] [place] [address] Nurse Practitioner Advanced Practice Nurse 01/31/22 Annel Rod MD [address] [address] Consulting Physician Endocrinology 07/01/22 documented as of this encounter
--- OUTSIDE RECORDS SUMMARY | 2024-12-28 21:21 | XMS_ITS | Encounter Summary ---
Author Organization [facility] Address [address] [place] [address] Phone Care Team Providers Care Quality Systems Engineer Name Role Phone Justen Gale MD Primary Care Provider [phone] David Roberts APRN, OFFICE MACHINES TEACHER Unavailable [phone] Annel Rod MD Unavailable Reason for Visit * Reason Comments Medication Refill Encounter Details Date Type Department Care Team (Late st Contact Info) Description 02/07/2023 Refill [facility] [address] [place] [id number] Catrina Qu[place] [address] [place] [address] Medication Refill Social History Tobacco Use Types [...] Office Visit Pili Elkins APRN, NETTA [facility] [place] 07/05/22 Office Visit Pili Elkins APRN, NETTA [facility] [place] 05/02/22 Office Visit Justen Gale MD [facility] [place] 03/03/22 Office Visit Pili Elkins APRN, OFFICE MACHINES TEACHER [facility] [place] Showing recent visits within past 365 days and meeting all other requirements Future Appointments No visits were found meeting these conditions. Showing future appointments within next 90 days and meeting all other requirements documented in this encounter Plan of Treatment Upcoming Encounters Date Type Department Care Team (Late st Contact Info) Description 01/13/2025 2:45 PM CDT Office Visit [facility] [address] [place] [address] Pili Elkins APRN, OFFICE MACHINES TEACHER #[address] [address] David Roberts APRN, OFFICE MACHINES TEACHER [address] [place] [address] 01/21/2025 2:00 PM CDT [facility] [address] [place] [address] Annel Rod MD #[address] [address] Discharge Disposition: Discharged to home or Selfcare 03/19/2025 2:00 PM TILE TRIMMER Office Visit [facility] - Endocrinology [facility] #[address] [place] [address] Annel Rod MD #[address] [address] 05/29/2025 1:30 PM TILE TRIMMER Office Visit [facility] - Family Medicine - [place] [address] [place] [address] Justen Gale MD #[address] [address] documented as of this encounter Visit Diagnoses Not on filedocumented in this encounter Additional Health Concerns Infection Onset Date Last Indicated Resolved Time COVID - 19 08/01/2024 08/01/2024 08/01/2024 3:20 PM CDT Respiratory Rule-Out 11/18/2024 11/18/2024 08/06/2 025 7:18 AM CDT Assessment Noted Time PHQ-9 Depression Total Score: 8 01/18/20 23 2:24 PM CDT documented as of this encounter Care Teams Quality Systems Engineer Relationship Specialty Start Date End Date Justen Gale MD #2 [facility] [address] [place] [address] PCP - General Family Medicine 10/17/17 David Roberts APRN, OFFICE MACHINES TEACHER [address] [place] [address] Nurse Practitioner Advanced Practice Nurse 01/31/22 Annel Rod MD #2 [facility] [address] [place] [address] Consulting Physician Endocrinology 07/01/22 documented as of this encounter
--- OUTSIDE RECORDS SUMMARY | 2024-12-28 21:21 | XMS_ITS | Clinical Summary ---
Author Organization [facility] Address [address] [place] [address] Phone Care Team Providers Care Kosher Dietary Service Supervisor Name Role Phone Justen Gale MD Primary Care Provider [phone] David Roberts APRN, FOAM RUBBER FABRICATOR Unavailable [phone] Annel Rod MD Unavailable Allergies Active Allergy [...] complication, without long-term current use of insulin ([facility]) Diagnosis: Diabetes Type 2 Blood testing frequency: 4 times a day 1 Each 8 Active Glucose Blood (ONE TOUCH ULTRA TEST) [...] Take 300 mg by mouth. 4 Active HYDROcodone-sara taminophen (NORCO) 10-325 MG Tablet Take 1 Tablet by mouth. 4 Active Multiple Vitamins-Minera ls (WOMENS MULTI PO) Take by mouth. Activ e Calcium Citrate-Vitamin D (CALCIUM + D PO) Take by mouth. Activ e rOPINIROLE (REQUIP) 5 MG Tablet Take 1 Tablet by mouth nightly. 90 Tablet 2 5 Active Continuous Glucose Sensor (FreeStyle Eileen 2 Sensor) Misc 1 Each by Does not apply route every 14 days. Change sensor every 14 days. E11.42, insulin dependent 6 Each 1 5 Active HumaLOG KwikPen 100 UNIT/ML Solution Pen-injector INJECT 28 UNITS UNDER SKIN BEFORE EACH MEAL.; ISF OF 1:15 OF IF>150MG/DL; MAX DAILY DOSE OF 100 UNITS 90 mL 5 Active insulin glargine (Lantus SoloStar) 100 UNIT/ML Solution Pen-injector 50 Units by Subcutaneous route every morning. 45 mL 1 5 Active predniSONE (DELTASONE) 5 MG TabletIndicatio ns:Polymyalgia rheumatica (HCC) Take 1.5 Tablets by mouth daily. 45 Tablet 5 Active ondansetron (Zofran) 4 MG Tablet Take 1 Tablet by mouth every 8 hours as needed for Nausea - 1st line. 15 Tablet 5 Active Continuous Glucose Sensor (FreeStyle Eileen 2 Sensor) Misc 1 Each by Does not apply route every 14 days. 6 Each 1 5 Active Insulin Pen Needle (BD Pen Needle Short Ultrafine) 31G X 8 MM Misc USE 6 TIMES A DAY DIRECTED 300 Pen Needle 3 5 Active furosemide (LASIX) 20 MG Tablet Take 20 mg by mouth daily. 5 Active amoxicillin-cla vulanate (AUGMENTIN) 875-125 MG Tablet Take 1 Tablet by mouth 2 times daily. 5 Active pantoprazole (PROTONIX) 40 MG Tablet Delayed Response Take 40 mg by mouth daily. Active oxybutynin (DITROPAN-XL) 10 MG TABLET SR 24 HRIndications:O AB (overactive bladder) Take 1 Tablet by mouth daily. 30 Tablet 1 5 Active spironolactone (ALDACTONE) 25 MG Tablet Take 25 mg by mouth daily. Active Active Problems Problem Noted Date Diagnosed [...] Overview: Added automatically from request for surgery [id number] Lymphedema of left upper extremity 08/09/2016 Pulmonary embolism 08/09/2016 Overview (11/09/2017): Last Assessment & Plan: On Rivaroxaban Arthralgia of ankle 01/26/2015 Resolved Problems Problem Noted Date Diagnosed Date Resolved Date Cellulitis of breast 11/11/2014 025 Encounters Date Type Department Care Team Description 12/24/2024 [facility] [address] [place] [address] Justen Gale MD Advice Only; Results 12/19/2024 Telephone [facility] - Family Medicine [facility] [address] [place] [address] Justen Gale MD 12/18/2024 Telephone [facility] [address] [place] [address] Justen Gale MD Results 12/17/2024 3:30 PM CDT Office Visit [facility] Endocrinology - [place] [address] [place] [address] Annel Rod MD Type 2 diabetes mellitus [...] - 12/17/2024 11:59 PM CDT Hospital [facility] [address] [place] [address] Justen Gale MD Discharge Disposition: Discharged to home or Selfcare 12/17/2024 Travel 12/14/2024 Nurse Triage [facility] [address] [place] [phone] Justen Gale MD Nausea; Shortness of Breath; Dizziness; Generalized Weakness 12/14/2024 Telephone [facility] [address] [place] [phone] Justen Gale MD Advice Only 12/06/2024 Telephone [facility] [address] [place] [address] [phone] Justen Gale MD Post-Hospital Follow-up 11/25/2024 10:00 AM CDT Office Visit [facility] [address] [place] [phone] Pili Elkins APRN, CNP Acute diastolic congestive heart failure (HCC) (Primary Dx); Type 2 diabetes mellitus with diabetic polyneuropathy, with long-term current use of insulin (HCC); OAB (overactive bladder); Polymyalgia rheumatica (HCC) Discharge Disposition: Discharged to home or Selfcare 11/25/2024 Travel 11/21/2024 Nurse Triage [facility] [address] [place] [phone] Justen Gale MD Advice Only; Urinary Frequency 11/21/2024 MyChart RX Renewal [facility] Endocrinology [facility] [address] [place] [address] Annel Rod MD Medication Renewal Reviewed 11/21/2024 MyChart RX Renewal [facility] [address] [place] [phone] Justen Gale MD Medication Renewal Declined 11/21/2024 MyChart RX Renewal [facility] [address] [place] [phone] Pili Elkins APRN, CNP Medication Renewal Reviewed 11/20/2024 [facility] [address] [place] [phone] Justen Gale MD Shortness of Breath 11/20/2024 [facility]phone [facility] [address] [place] [phone] Justen Gale MD Post-Hospital Follow-up ([facility]) 11/14/2024 [facility] [address] [place] [phone] Justen Gale MD Follow-up 11/14/2024 Telephone [facility] [address] [place] [address] Justen Gale MD 11/07/2024 [facility] [address] [place] [phone] Justen Gale MD Advice Only; Fatigue; Shortness of Breath 11/06/2024 [facility] - [place] [address] [place] [phone] Justen Gale MD Medication Renewal Declined 11/05/2024 [facility] [place] [facility] [place] [phone] Justen Gale MD Medication Refill 10/28/2024 [facility] - [place] [address] [place] [address] Justen Gale MD Medication Renewal Reviewed 10/17/2024 [facility] [place] [address] [place] [address] Annel Rod MD Medication Refill 10/08/2024 Nurse Triage [facility] [address] [place] [phone] Justen Gale MD Abdominal Pain 09/30/2024 MyChart RX Renewal [facility] [address] [place] [phone] Dulce Wolff, RN BEHAVIORAL HEALTH, FOAM RUBBER FABRICATOR Medication Renewal Reviewed 09/29/2024 Nurse Triage [facility] [address] [place] [phone] Justen Gale MD Urinary Tract Infection from Last 3 Months Immunizations Immunization Administration [...] drink = 0.6 oz pur e alcohol) [facility] Utilities Answer Date Recorded In the past 12 months has [employer], [employer], oil, or water [employer] threatened to shut off services in your home? Yes 08/06/2024 Social Connection and Isolation Panel Answer Date Recorded In a typical week, how many times do you talk on the phone with family, friends, or neighbors? More than three times a week 08/06/2024 How often do you get togethe r with friends or relatives? Patient declined 08/06/2024 How often do you attend [facility] or religion services? More than 4 times [...] - Questions 1-9 0 07/23 [facility] - Occupational Stress Questionnaire Answer [...] in a correction (including now)? No 08/06/2024 AUDIT-C Answer Date [...] Visit [facility] UROLOGY [address] [place] [address] Pili Elkins APRN, FOAM RUBBER FABRICATOR [address] [phone] David Roberts APRN, FOAM RUBBER FABRICATOR [address] [place] [address] 01/21/2025 2:00 PM CDT Appoint[facility] Ul[facility] [address] [place] [address] Annel Rod MD [address]2 [facility] [address] [place] [address] Discharge Disposition: Discharged to home or Selfcare 03/19/2025 2:00 PM CHEMICAL PLANT WORKER [facility] - [place] [address]2 [facility] [place] [address] Annel Rod MD [address] [place] [address] 05/29/2025 1:30 PM CHEMICAL PLANT WORKER [facility] Visit [facility] - [place] [address] [facility] [place] [address] Justen Gale MD [address]2 [facility] [address] [place] [address] Health Maintenance Due Date Last Done Comments [...] Additional history exists SARS-COV-2 Immunization ( season) 2024 05/04/2021, 06/29/2020 Colonoscopy 01/08/2025 01/09/2020, [...] - ABDOMEN/PELVIS 10/03/2024 1 2:00 AM CDT [id number] CONSULT 09/27/2024 12:00 AM CDT EXTERNAL ENT [...] Baldomero Laboy D.O. AP: AP Report ID: [id number] Reading Location: [id number] Procedure Note Baldomero Laboy DO - 12/18/2024 [...] Baldomero Laboy D.O. AP: AP Report ID: [id number] Reading Location: [id number] IMPRESSION: No significant change in appearance of the chest when compared to the previous chest radiograph dated 12/11/2024. us Justen Gale MD IMG DIAGNOSTIC ORDERABLES Fin al Result * XR - CHEST (11/27/2024 12:00 AM CDT) Only the most recent of3 resultswithin the time period is included. 11/27/2024 us Provider Scan IMG DIAGNOSTIC ORDERABLES Final Result Performing Organization Address [facility] de Phone Number SCAN * PAIN CONSULT (11/21/2024 12:00 AM CDT) 11/21/2024 Justen Gale MD GENERIC SCAN ORDERS CONSULT F inal Result Performing Organization Address City/[facility] de Phone Number SCAN * RESPIRATORY SYNCYTIAL VIRUS BY MOLECULAR (11/18/2024 12:00 AM CDT) 11/18/2024 us Provider Scan MICROBIOLOGY - GENERAL ORDERABLE S Final Result Performing Organization Address City/[facility] de Phone Number SCAN * US - UPPER EXTREMITY (11/18/2024 12:00 AM CDT) 11/18/2024 us Provider Scan IMG US ORDERABLES Final Result Performing Organization Address [facility] de Phone Number SCAN * US - LOWER EXTREMITY (11/18/2024 12:00 AM CDT) 11/18/2024 us Provider Scan IMG US ORDERABLES Final Result Performing Organization Address [facility] de Phone Number SCAN * XR - UPPER EXTREMITY (11/18/2024 12:00 AM CDT) Only the most recent of2 resultswithin the time period is included. 11/18/2024 us Provider Scan IMG DIAGNOSTIC ORDERABLES Final Result Performing Organization Address [facility] de Phone Number SCAN * CARDIOLOGY CONSULT (11/18/2024 12:00 AM CDT) Only the most recent of2 resultswithin the time period is included. 11/18/2024 us Provider Scan GENERIC SCAN ORDERS CONSULT Deann l Result Performing Organization Address [facility] de Phone Number SCAN * LAB - MISCELLANEOUS (11/18/2024 12:00 AM CDT) Only the most recent of2 resultswithin the time period is included. 11/18/2024 us Provider Scan CHEMISTRY ORDERABLES Final Resul t Performing Organization Address [facility] de Phone Number SCAN * URINALYSIS (UA) RANDOM (11/18/2024 12:00 AM CDT) Only the most recent of3 resultswithin the time period is included. 11/18/2024 us Provider Scan URINE ORDERABLES Final Result Performing Organization Address [facility] de Phone Number SCAN * URIC ACID (BLOOD ASSAY) (11/18/2024 12:00 AM CDT) 11/18/2024 us Provider Scan CHEMISTRY ORDERABLES Final Resul t Performing Organization Address [facility] de Phone Number SCAN * TROPONIN I (TRP I) (11/18/2024 12:00 AM CDT) 11/18/2024 us Provider Scan CHEMISTRY ORDERABLES Final Resul t Performing Organization Address [facility] de Phone Number SCAN * APTT (PTT) (11/18/2024 12:00 AM CDT) Only the most recent of2 resultswithin the time period is included. 11/18/2024 us Provider Scan HEMATOLOGY ORDERABLES Final Resu lt Performing Organization Address [facility] de Phone Number SCAN * MAGNESIUM (MG) (11/18/2024 12:00 AM CDT) Only the most recent of3 resultswithin the time period is included. 11/18/2024 us Provider Scan CHEMISTRY ORDERABLES Final Resul t Performing Organization Address [facility] de Phone Number SCAN * LACTIC ACID (LACTATE) (11/18/2024 12:00 AM CDT) Only the most recent of2 resultswithin the time period is included. 11/18/2024 us Provider Scan CHEMISTRY ORDERABLES Final Resul t Performing Organization Address [facility] de Phone Number SCAN * GLUCOSE (11/18/2024 12:00 AM CDT) 11/18/2024 us Provider Scan CHEMISTRY ORDERABLES Final Resul t Performing Organization Address [facility] de Phone Number SCAN * D-DIMER (11/18/2024 12:00 AM CDT) 11/18/2024 us Provider Scan HEMATOLOGY ORDERABLES Final Resu lt Performing Organization Address [facility] de Phone Number SCAN * CMP (COMPREHENSIVE METABOLIC PANEL) (11/18/2024 12:00 AM CDT) Only the most recent of3 resultswithin the time period is included. 11/18/2024 us Provider Scan CHEMISTRY ORDERABLES Final Resul t Performing Organization Address [facility] de Phone Number SCAN * COMPLETE BLOOD COUNT (CBC) WITH DIFF (11/18/2024 12:00 AM CDT) Only the most recent of2 resultswithin the time period is included. 11/18/2024 us Provider Scan HEMATOLOGY ORDERABLES Final Resu lt Performing Organization Address [facility] de Phone Number SCAN * C-REACTIVE PROTEIN (CRP) QUANT (11/18/2024 12:00 AM CDT) 11/18/2024 us Provider Scan CHEMISTRY ORDERABLES Final Resul t Performing Organization Address [facility] de Phone Number SCAN * BASIC METABOLIC PANEL W/ CALCIUM TOTAL (11/18/2024 12:00 AM CDT) 11/18/2024 us Provider Scan CHEMISTRY ORDERABLES Final Resul t Performing Organization Address [facility] de Phone Number SCAN * B-TYPE NATRIURETIC PEPTIDE (BNP) (11/18/2024 12:00 AM CDT) Only the most recent of3 resultswithin the time period is included. 11/18/2024 us Provider Scan CHEMISTRY ORDERABLES Final Resul t Performing Organization Address [facility] de Phone Number SCAN * ECHO GENERIC (11/16/2024 12:00 AM CDT) Only the most recent of2 resultswithin the time period is included. LV EF(estimated)% 58 RESULTING AGENCY 11/16/2024 us Provider Scan IMG ECHO ORDERABLES Final Result Performing Organization Address [facility] de Phone Number RESULTING AGENCY * EKG SCAN (11/15/2024 12:00 AM CDT) Only the most recent of2 resultswithin the time period is included. 11/15/2024 us Provider Scan IMG ECG ORDERABLES Final Result Performing Organization Address [facility] Phone Number RESULTING AGENCY * PROTIME (PT) (PROTHROMBIN TIME) (11/15/2024 12:00 AM CDT) Only the most recent of2 resultswithin the time period is included. INR 2.1 SCAN 11/15/2024 us Provider Scan HEMATOLOGY ORDERABLES Final Resu lt Performing Organization Address [facility] de Phone Number SCAN * THYROID STIMULATING HORMONE (TSH) (11/07/2024 12:00 AM CDT) Only the most recent of2 resultswithin the time period is included. 11/07/2024 us Provider Scan CHEMISTRY ORDERABLES Final Resul t Performing Organization Address [facility] de Phone Number SCAN * INTERNAL MEDICINE CONSULT (10/17/2024 12:00 AM CDT) Only the most recent of2 resultswithin the time period is included. 10/17/2024 us Provider Scan GENERIC SCAN ORDERS CONSULT Deann l Result Performing Organization Address [facility] de Phone Number SCAN * CT - ABDOMEN/PELVIS (10/15/2024 12:00 AM CDT) Only the most recent of4 resultswithin the time period is included. 10/15/2024 us Provider Scan IMG CT ORDERABLES Final Result Performing Organization Address [facility] de Phone Number SCAN * SURGERY CONSULT (10/12/2024 12:00 AM CDT) 10/12/2024 us Provider Scan GENERIC SCAN ORDERS CONSULT Deann l Result Performing Organization Address [facility] de Phone Number SCAN * CT - SPINE (10/06/2024 12:00 AM CDT) 10/06/2024 us Provider Scan IMG CT ORDERABLES Final Result Performing Organization Address [facility] de Phone Number SCAN * EXTERNAL ENT REFERRAL (09/27/2024 12:00 AM CDT) 09/27/2024 July N Oehl RN BEHAVIORAL HEALTH, FOAM RUBBER FABRICATOR OUTPT REFERRALS EXT/INT F inal Result Performing Organization Address [facility] de Phone Number SCAN * [id number] CONSULT (09/27/2024 12:00 AM CDT) 09/27/2024 us Provider Scan GENERIC SCAN ORDERS CONSULT Deann l Result Performing Organization Address [facility] de Phone Number SCAN * HEMOGLOBIN, A1C (10/02/2023 12:00 AM CDT) HGB-A1C 7.8 SCAN 10/02/2023 us Provider Scan CHEMISTRY ORDERABLES Final Resul t SCAN * COLONOSCOPY (01/09/2020) us Genaro Heydi Camila DO PROCEDURE/MINOR SURGICAL ORDERA BLES Final Result * AMB REFERRAL TO PODIATRY (08/13/2019) us Alvarez Mensah MD OUTPATIENT REFERRALS Final Res ult * POCT STOOL, OCCULT BLOOD, DIAGNOSTIC (09/07/2018 1:20 PM CDT) OCCULT BLOOD, STOOL Negative Negative, Other POC HEMOCULT CONTROL [place] 09/07/2018 1:2 0 PM CDT Pili Elkins RN BEHAVIORAL HEALTH, FOAM RUBBER FABRICATOR POINT OF CARE TESTIN G (MANUAL) Final Result from Last 3 Months or Most Recently Relevant to Health Maintenance Insurance MEDICAID [place] MEDICARE C [employer] [place] [id number] Care Teams Kosher Dietary Service Supervisor Relationship Specialty Start Date End Date Justen Gale MD [address]2 [facility] [address] [place] [address] PCP - General Family Medicine 10/17/17 David Roberts, RN BEHAVIORAL HEALTH, FOAM RUBBER FABRICATOR [address] [place] [address] Nurse Practitioner Advanced Practice Nurse 01/31/22 Annel Rod MD [address]2 [facility] [address] [place] [address] Consulting Physician Endocrinology 07/01/22
--- OUTSIDE RECORDS SUMMARY | 2024-12-28 21:21 | XMS_ITS | Encounter Summary ---
Author Organization [facility] Address [address] [place] [address] Phone Care Team Providers Care Tight Rope Walker Name Role Phone Justen Gale MD Primary Care Provider [phone] David Roberts APRN, NURSE'S AIDES TEACHER Unavailable Annel Rod MD Unavailable Reason for Visit * Reason Comments Medication Refill Encounter Details Date Type Department Care Team (Late st Contact Info) Description 09/30/2023 Refill [facility] - [place] [address] [place] [address] Annel Rod MD #[address] [address] Medication Refill Social History Tobacco [...] Description 01/13/2025 2:45 PM CDT Office Visit [facility] #[address] [place] [address] Pili Elkins, ZAMZAM, NURSE'S AIDES TEACHER #[address] [address] David Roberts APRN, NURSE'S AIDES TEACHER [address] [place] [address] 01/21/2025 2:00 PM CDT Appointment [facility] Ultrasound [address] [place] [address] Annel Rod MD #[address] [address] Discharge Disposition: Discharged to home or Selfcare 03/19/2025 2:00 PM SAFETY AND SKILL BASED PAY MANAGER Office Visit [facility] - [place] [address] [place] [address] Annel Rod MD #[address] [place] [address] 05/29/2025 1:30 PM SAFETY AND SKILL BASED PAY MANAGER Office Visit [facility] [address] [place] [address] Justen Gale MD [address] [address] documented as of this encounter Visit Diagnoses Not on filedocumented in this encounter Additional Health Concerns Infection Onset Date Last Indicated Resolved Time COVID - 19 08/01/2024 08/01/2024 08/01/2024 3:20 PM CDT Respiratory Rule-Out 11/18/2024 11/18/2024 025 7:18 AM CDT Assessment Noted Time PHQ-9 Depression Total Score: 8 01/18/20 23 2:24 PM CDT documented as of this encounter Care Teams Tight Rope Walker Relationship Specialty Start Date End Date Justen Gale MD [address] [address] [address] PCP - General Family Medicine 10/17/17 David Roberts APRN, NETTA [address] [place] [address] Nurse Practitioner Advanced Practice Nurse 01/31/22 Annel Rod MD [address] [address] Consulting Physician Endocrinology 07/01/22 documented as of this encounter
--- OUTSIDE RECORDS SUMMARY | 2024-12-28 21:21 | XMS_ITS | Encounter Summary ---
Author Organization [facility] Address [address] [address] Phone Care Team Providers Care Termite Treater Name Role Phone Justen Gale MD Primary Care Provider [phone] David Roberts APRN, ORDER PACKER OR PACKAGER Unavailable Annel Rod MD Unavailable Reason for Visit * Reason Onset Date Comments Sore Throat 09/02/2024 Encounter Details Date Type Department Care Team (Late st Contact Info) Description 09/02/2024 Nurse Triage [facility] [address] [place] [address] Justen Gale MD #[address] [address] Sore Throat Social History Tobacco Use Types Packs/Day Years Used Date Smoking Tobacco: Never Smokeless Tobacco: Never Alcohol Use Standard Drinks/Week Comments No 0 (1 standard drink = 0.6 oz pur e alcohol) [facility] Utilities Answer Date Recorded In [...] How often do you attend chur or restorationist services? More than 4 times [...] Score - Questions 1-9 0 07/23 [facility] - Occupational [...] Pharmacy, medications, and allergies reviewed. Discussed utilizing W-21 to: discuss if they would prefer a W-21 message or phone call response - See [...] Ulcers - Caller Reports Outcome: Transfer to technology administrator queue Reason: Caller denied all higher acuity questions The caller accepted this outcome. Caller Denied: * Struggling for each breath (severe trouble breathing) * Can't swallow saliva (drooling) documented in this encounter Plan of Treatment Upcoming Encounters Date Type Department Care Team (Late st Contact Info) Description 01/13/2025 2:45 PM CDT Office Visit [facility] #2 [place] [address] Pili Elkins APRN, ORDER PACKER OR PACKAGER #[address] [address] David Roberts APRN, ORDER PACKER OR PACKAGER #2 [place] [address] 01/21/2025 2:00 PM CDT Appointment [facility] Ultrasound [address] [place] [address] Annel Rod MD #[address] [phone] Discharge Disposition: Discharged to home or Selfcare 03/19/2025 2:00 PM SECRETARY ADMINISTRATIVE ASSISTANT Office Visit [facility] - [place] #2 [place] [address] Annel Rod MD #[address] [address] 05/29/2025 1:30 PM SECRETARY ADMINISTRATIVE ASSISTANT Office Visit [facility] Family Medicine - [place] #2 [place] [address] Justen Gale MD #[address] [address] documented as of this encounter Visit Diagnoses Not on filedocumented in this encounter Additional Health Concerns Infection Onset Date Last Indicated Resolved Time Respiratory Rule-Out 11/18/2024 11/18/2024 025 7:18 AM CDT Assessment Noted Time PHQ-9 Depression Total Score: 0 08/02/19 25 1:09 PM CDT documented as of this encounter Care Teams Termite Treater Relationship Specialty Start Date End Date Justen Gale MD #2 [facility] [address] [place] [address] PCP - General Family Medicine 10/17/17 David Roberts, SHIRRING MACHINE OPERATOR AUTOMATIC, ORDER PACKER OR PACKAGER #2 [place] [address] Nurse Practitioner Advanced Practice Nurse 01/31/22 Annel Rod MD #2 [facility] [address] [place] [address] Consulting Physician Endocrinology 07/01/22 documented as of this encounter
--- OUTSIDE RECORDS SUMMARY | 2024-12-28 21:21 | XMS_ITS | Encounter Summary ---
Author Organization [facility] Address [address] [place] [address] Care Team Providers Care Broth Mixer Name Role Phone Liu Jerez MD Unavailable [phone] Albert Corbin MD Unavailable Justen Gale MD Primary Care Provider Khris Arthur MD Unavailable [phone] Ko Melendez MD Unavailable [phone] John Paul Moyer MD Unavailable Annel Rod MD Unavailable Anali MARSHALL MD, Carlos M. Unavailable [phone] Encounter Details Date Type Department Care Team (Late st Contact Info) Description 12/17/2024 [facility] Subsequent Outreach [facility] [address] [place] [address] Madelyn Cruz, CASTING WHEEL OPERATOR HELPER [address] [place] [address] Social History Tobacco Use Types Packs/Day [...] in a jail (including now)? No 05/24/2024 Social Connection and [...] living in a jail (including now)? No 12/03/2024 [facility] Utilities Answer Date Recorded In the [...] on file Legal Sex Female 12:24 AM BLENDER/BRAZE APPLICATOR Gender Identity Not on file Sexual Orientation Not on file documented as of this encounter Plan of Treatment Not on file documented as of this encounter Visit Diagnoses Not on filedocumented in this encounter Care Teams Broth Mixer Relationship Specialty Start Date End Date Justen Gale MD 2 [facility] [address] [place] [address] PCP - General 10/09/17 Liu Jerez MD Consulting Physician Gastroenterology 07/28/17 [place] [address] [facility] [address] [place] [address] Consulting Physician Pulmonary Disease 08/03/17 Khris Arthur MD [address] [facility] [address] [place] [address] Medical Oncologist/Ventilator Specialist Medical Oncology 10/23/17 [place] [address] [facility] [address] [place] [address] Surgeon Orthopedic Surgery 10/23/17 [place] [address] [address] Consulting Physician Pain Management 10/23/17 [place] [address] [facility] [address] [place] [address] Referring Physician General Surgery 01/26/18 [place] [address] [facility] [address] [place] [address] Consulting Physician Neurology 01/26/18 documented as of this encounter
--- OUTSIDE RECORDS SUMMARY | 2024-12-28 21:22 | XMS_ITS | Encounter Summary ---
Author Organization [facility] Address [address] [place] [address] Phone Care Team Providers Care Photo Specialist Name Role Phone Justen Gale MD Primary Care Provider [phone] David Roberts APRN, KNITTER WIRE MESH Unavailable Annel Rod MD Unavailable Reason for Visit * Reason Comments Medication Refill Encounter Details Date Type Department Care Team (Late st Contact Info) Description 02/07/2020 Refill [facility] [address] [place] [address] Justen Gale MD #[address] [address] Medication Refill Social History Tobacco Use Types [...] Description 01/13/2025 2:45 PM CDT Office Visit [facility] #[address] [place] [address] Pili Elkins APRN, KNITTER WIRE MESH #[address] [address] David Roberts APRN, KNITTER WIRE MESH #2 [place] [address] 01/21/2025 2:00 PM CDT Appointment [facility] Ultrasound 1 [place] [address] Annel Rod MD #[address] [address] Discharge Disposition: Discharged to home or Selfcare 03/19/2025 2:00 PM SUPERINTENDENT NONSELLING Office Visit [facility] - [place] #2 [place] [address] Annel Rod MD #[address] [phone] 05/29/2025 1:30 PM SUPERINTENDENT NONSELLING Office Visit [facility] #[address] [place] [address] Justen Gale MD #2 [facility] [address] [place] [address] documented as of this encounter Visit Diagnoses Not on filedocumented in this encounter Additional Health Concerns Infection Onset Date Last Indicated Resolved Time COVID - 19 08/01/2024 08/01/2024 08/01/2024 3:20 PM CDT Respiratory Rule-Out 11/18/2024 11/18/2024 025 7:18 AM CDT Assessment Noted Time PHQ-9 Depression Total Score: 0 09/08/19 19 1:00 PM CDT documented as of this encounter Care Teams Photo Specialist Relationship Specialty Start Date End Date Justen Gale MD #[address] [address] PCP - General Family Medicine 10/17/17 David Roberts, GOLF CADDY, KNITTER WIRE MESH #[address] [place] [address] Nurse Practitioner Advanced Practice Nurse 01/31/22 Annel Rod MD #[address] [address] Consulting Physician Endocrinology 07/01/22 documented as of this encounter
--- OUTSIDE RECORDS SUMMARY | 2024-12-28 21:22 | XMS_ITS | Encounter Summary ---
Author Organization [facility] Address [address] [place] [address] Phone Care Team Providers Care Rod Machine Operator Name Role Phone Liu Jerez MD Unavailable Albert Corbin MD Unavailable Justen Gale MD Primary Care Provider Khris Arthur MD Unavailable [phone] Ko Melendez MD Unavailable John Paul Moyer MD Unavailable Annel Rod MD Unavailable Anali MARSHALL MD, Carlos M. Unavailable [phone] Encounter Details Date Type Department Care Team [...] on file Legal Sex Female 12:24 AM ORACLE SCM CONSULTANT Gender Identity Not on file Sexual [...] COVID: Recovered 02/10/2022 02/10/2022 06/10/2022 3:05 AM ORACLE SCM CONSULTANT Exposure, COVID-19 Comment:Added automatically based on COVID19 lab answers indicating exposure risk 02/11/2022 02/11/2022 02/15/2022 9:06 AM C DT COVID: Suspected 05/14/2022 05/14/2022 05/14/2022 10:41 AM ORACLE SCM CONSULTANT COVID: Suspected 06/07/2022 06/07/2022 06/07/2022 12:28 PM ORACLE SCM CONSULTANT COVID: Suspected 06/21/2022 06/21/2022 06/21/2022 2:12 AM ORACLE SCM CONSULTANT COVID: Suspected 10/05/2022 10/05/2022 10/05/2022 7:40 PM CDT COVID: Suspected 01/04/2024 01/04/2024 01/04/2024 10:30 PM CDT COVID: Suspected 02/14/2024 02/14/2024 02/15/2024 12:36 AM CDT COVID: Suspected 07/01/2024 07/01/2024 07/01/2024 2:53 PM CDT COVID: Suspected 07/01/2024 07/01/2024 07/02/2024 3:05 AM CDT COVID: Suspected 12/08/2024 12/08/2024 12/08/2024 1:50 AM CDT documented as of this encounter Care Teams Rod Machine Operator Relationship Specialty Start Date End Date Justen Gale MD [address] [address] PCP - General 10/09/17 Liu Jerez MD Consulting Physician Gastroenterology 07/28/17 [place] [address] [facility] [address] [place] [address] Consulting Physician Pulmonary Disease 08/03/17 Khris Arthur MD [address] [facility] [address] [place] [address] Medical Oncologist/Sqe Medical Oncology 10/23/17 [place] [address] [facility] [address] [place] [address] Surgeon Orthopedic Surgery 10/23/17 [place] [address] [facility] [address] [place] [address] Consulting Physician Pain Management 10/23/17 [place] [address] [address] [facility] [address] [place] [address] Referring Physician General Surgery 01/26/18 [place] [address] [address] [facility] [address] [place] [address] Consulting Physician Neurology 01/26/18 documented as of this encounter
--- OUTSIDE RECORDS SUMMARY | 2024-12-28 21:22 | XMS_ITS | Encounter Summary ---
Author Organization [facility] Address [address] [place] [address] Phone Care Team Providers Care Experiential Therapist Name Role Phone Justen Gale MD Primary Care Provider David Roberts APRN, VP PRODUCT Unavailable [phone] Annel Rod MD Unavailable Reason for Visit * Reason Onset Date Comments Advice Only 11/21/2023 Encounter Details Date Type Department Care Team (Late st Contact Info) Description 11/21/2023 Telephone [facility] [address] [place] [address] Justen Gale MD #[address] [address] Advice Only Social History Tobacco Use Types [...] 11/21/2023 3:17 PM CDT RFC: Alejandra from [facility] is calling to state that patient is listed as being a diabteic but is not on a statin. Please call Alejandra (relationship to patient n/a) back regarding above referenced patient. Patient's Provider is Justen Gale MD . documented in this encounter Plan of Treatment Upcoming Encounters Date Type Department Care Team (Late st Contact Info) Description 01/13/2025 2:45 PM CDT Office Visit [facility] #2 [place] [address] Pili Elkins, ASSIGNMENT EDITOR, VP PRODUCT #[address] [phone] David Roberts, ASSIGNMENT EDITOR, VP PRODUCT #2 [place] [address] 01/21/2025 2:00 PM CDT Appointment [facility] Ultrasound [address] [place] [phone] Annel Rod MD #[address] [phone] Discharge Disposition: Discharged to home or Selfcare 03/19/2025 2:00 PM FLOOR COVERER Office Visit [facility] End[facility] #2 [place] [address] Annel Rod MD #[address] [address] 05/29/2025 1:30 PM FLOOR COVERER Office Visit [facility] #[address] [place] [address] Justen Gale MD #[address] [address] documented as of this encounter Visit Diagnoses Not on filedocumented in this encounter Additional Health Concerns Infection Onset Date Last Indicated Resolved Time COVID - 19 08/01/2024 08/01/2024 08/01/2024 3:20 PM CDT Respiratory Rule-Out 11/18/2024 11/18/2024 025 7:18 AM CDT Assessment Noted Time PHQ-9 Depression Total Score: 8 01/18/20 23 2:24 PM CDT documented as of this encounter Care Teams Experiential Therapist Relationship Specialty Start Date End Date Justen Gale MD #[address] [address] PCP - General Family Medicine 10/17/17 David Roberts APRN, VP PRODUCT #2 [place] [address] Nurse Practitioner Advanced Practice Nurse 01/31/22 Annel Rod MD #[address] [address] Consulting Physician Endocrinology 07/01/22 documented as of this encounter
[2024-12-28 21:41] VITALS: BP 162/89; PULSE 81; RESP 18; TEMP 36.8; O2SAT 98
[2024-12-29] VITALS (11 sets, daily range): BP systolic 134–162; BP diastolic 71–100; PULSE 74–83; RESP 17–18; TEMP 36.7; O2SAT 97–100
[2024-12-29 01:35] LABS: Hematocrit 39.2 % (37.0-47.0); Hemoglobin 12.2 g/dL (12.0-15.0); Immature Granulocyte Percent A 0.4 % (0-0.5); Lymphocytes Absolute Auto 2.38 K/mm3 (0.9-3.2); Mean Corpuscular HGB Conc 31.1 g/dl (32-36); Mean Corpuscular Hemoglobin 28.5 pg (26-34); Mean Corpuscular Volume 91.6 fl (80-100); Nucleated Red Blood Cells Absolute Auto 0.000 K/mm3 (0.0-0.012); Nucleated Red Blood Cells Perc 0.0 % (0.0-0.2); Platelet Count Result 283 k/mm3 (150-375); Red Blood Count 4.28 M/mm3 (4.2-5.4); White Blood Count 13.7 K/mm3 (4.5-10.0)
[2024-12-29 01:51] LABS: Alanine Aminotransferase 26 U/L (6-35); Albumin Level 4.1 g/dL (3.5-5.1); Alkaline Phosphatase 76 U/L (38-126); Anion Gap 7 mmol/L (4-12); Aspartate Amino Transferase 26 U/L (14-36); Bilirubin,Total 0.5 mg/dL (0.2-1.3); Blood Urea Nitrogen 26 mg/dL (7-17); CRP 2.2 mg/dL (<1.0); Calcium 9.8 mg/dL (8.4-10.2); Carbon Dioxide 29 mmol/L (22-30); Chloride 101 mmol/L (98-107); Creatine Kinase 92 U/L (30-135); Estimated Glomerular Filt Rate 57; Glucose 231 mg/dL (65-110); Potassium 4.4 mmol/L (3.4-5.0); Sodium 137 mmol/L (137-145); Total Protein 8.1 g/dL (6.3-8.2)
--- NOTE | 2024-12-29 03:47 | PC.NURSE ---
Patient using [facility] upon request. Call light within reach.
--- NOTE | 2024-12-29 03:53 | ED.BACK ---
HPI - Back Pain/Injury General Chief Complaint: Back Pain/Injury Stated Complaint: autoimmune disorder flare up Time Seen by Provider: 12/29/24 03:15 History of Present Illness HPI Narrative: Patient is a 69-year-old female who presents emergency department this evening complaining of flare-up of her autoimmune disorder. States that she was recently diagnosed with polymyositis and has not followed up with her flaking roll operator, has an upcoming appointment states that her home medications have not been helping with her pain. Patient has been seen in our facility and ulnar nearby local facilities for similar symptoms. Related Data Home Medications ?Medication ?Instructions ?Recorded ?Confirmed ?Last Taken ?Type exemestane 25 mg tablet 25 mg PO HS 01/06/20 11/16/24 11/15/24 History insulin glargine 100 unit/mL (3 50 unit subcut QAM 01/06/20 11/16/24 11/15/24 History mL) subcutaneous pen (Lantus Solostar U-100 Insulin) ropinirole 5 mg tablet 5 mg PO HS 01/06/20 11/16/24 11/15/24 History insulin lispro 100 unit/mL 32 unit subcut TID 03/19/22 11/16/24 11/15/24 History subcutaneous pen (Humalog KwikPen (U-100) Insulin) oxybutynin chloride 15 mg 15 mg PO DAILY 11/06/22 11/16/24 11/15/24 History tablet,extended release 24 hr gabapentin 300 mg capsule 300 mg PO TID 06/25/23 11/16/24 11/15/24 History prednisone 10 mg tablet 10 mg PO DAILY 10/08/24 11/16/24 11/15/24 History rivaroxaban 20 mg tablet (Xarelto) [place] [address]/08/24 11/16/24 11/15/24 History Allergies Allergy/AdvReac Type Severity Reaction Status Date / Time ceftriaxone Allergy Severe SOB Verified 12/29/24 02:00 cephalexin Allergy Severe Difficulty Verified 12/29/24 02:00 Breathing Cephalosporins Allergy Severe Difficulty Verified 12/29/24 02:00 Breathing lorazepam Allergy Severe Swelling Verified 12/29/24 02:00 trazodone Allergy Severe Swelling Verified 12/29/24 02:00 of Lip/Tongue/Throat metoclopramide Allergy Intermediate Other Verified 12/29/24 02:00 azithromycin Allergy Mild Itching Verified 12/29/24 02:00 chlorhexidine Allergy Mild BLISTERING Verified 12/29/24 02:00 levofloxacin Allergy Mild Hives / Verified 12/29/24 02:00 Red Face ketorolac Allergy Itching Verified 12/29/24 02:00 latex Allergy Rash Verified 12/29/24 02:00 meropenem Allergy Rash Verified 12/29/24 02:00 nitrofurantoin Allergy Itching Verified 12/29/24 02:00 piperacillin Allergy Rash Verified 12/29/24 02:00 reslizumab Allergy Hives Verified 12/29/24 02:00 trimethoprim (From Allergy Itching Verified 12/29/24 02:00 Sulfamethoxazole-Trimethoprim) sulfamethoxazole (From AdvReac Severe Anaphylaxis Verified 12/29/24 02:00 Sulfamethoxazole-Trimethoprim) clindamycin AdvReac Intermediate Nausea and Verified 12/29/24 02:00 Vomiting doxycycline AdvReac Mild Itching Verified 12/29/24 02:00 oxycodone AdvReac Mild Vomiting Verified 12/29/24 02:00 amlodipine AdvReac Swelling Verified 12/29/24 02:00 lisinopril AdvReac Swelling Verified 12/29/24 02:00 pregabalin AdvReac Swelling Verified 12/29/24 02:00 Review of Systems Review of Systems: All systems are reviewed and are negative unless stated otherwise in the HPI. [facility] Past Medical History Medical History Polymyositis with myopathy Gastroparesis Obstructive sleep apnea on CPAP Restless leg syndrome Pulmonary embolism positive for coagulation workup Deep venous thrombosis Type 2 diabetes mellitus Throat pain in adult Oral ulcer Chronic anticoagulation Overactive bladder Irritable bowel syndrome Congestive heart failure Chronic back pain Collagenous colitis Morbid obesity Breast cancer Depression Anxiety Peripheral neuropathy Kidney stone Multiple thyroid nodules Surgical History Surgical History History of umbilical hernia repair History of colonoscopy Status post insertion of spinal cord stimulator History of cystoscopy History of ureter stent History of cholecystectomy History of bilateral mastectomy History of esophagogastroduodenoscopy (EGD) History of right oophorectomy History of total right knee replacement History of cardiac catheterization Reportedly negative for coronary artery disease. Family History Family History Mother Diabetes mellitus Acute myocardial infarction Congestive heart failure Hypertension Cerebrovascular accident Coronary artery disease Father Prostate carcinoma Sibling Acute myocardial infarction Breast cancer Chronic obstructive pulmonary disease Social History Social History Social History: Surrogate medical decision maker: Jimmie Marques, spouse. (Previously listed though she reports being now) Code status: Full code. Smoking packs per day: 0 Smoking cigarettes per day: 0.0 Years smoked: 2 Smoking pack-years: 0.00 Smoking status: Never smoker Second hand tobacco smoke exposure: Yes Alcohol intake: never Substance use: never Substance use type: does not use Do You Feel Safe in your Home?: Yes Lack of Transportation: YES Lack of Food: Never True Current Housing: I Have Housing Concerned About Future Housing: No Difficulty Paying Gas/Electric Bills: No Difficulty Paying for Meds: No Currently Unemployed: No Education: Associate Degree Difficulty w/ Childcare or Family Care: No Living arrangements: with family Additional living arrangements comments: daughter Additional occupation/education comments: Disabled. Spiritual care concerns: No Exam Narrative: General: Alert, awake, afebrile, in no acute distress. HEENT: PERRL, no rhinorrhea, no post nasal drip, oropharynx clear. Neck: Trachea midline, no JVD, no lymphadenopathy. Cardiovascular: Regular rate and rhythm, no murmurs, rubs or gallops, no peripheral edema. Respiratory: Clear to auscultation bilaterally, no tachypnea, no wheezing, no rhonchi, no rubs, no respiratory distress. Abdomen: Soft, nontender, nondistended, no rebound, no guarding, no peritoneal signs. Musculoskeletal: No joint swelling or deformity, normal muscle tone. Skin: No rashes or petechia, no signs of infection. Psychiatric: Alert and oriented, normal behavior and judgment for situation. Neurological: Alert and oriented to person, place, and time. Follows all commands. No focal deficits, speech is clear and fluent. Course Vital Signs Vital signs: Vital Signs Temperature 98.2 F 12/28/24 21:41 Pulse Rate 81 12/28/24 21:41 Respiratory Rate 18 12/28/24 21:41 Blood Pressure 162/89 H 12/28/24 21:41 Pulse Oximetry 98 12/28/24 21:41 Oxygen Delivery Room Air 12/28/24 21:41 Temperature 98.1 F 12/29/24 01:59 Pulse Rate 83 12/29/24 01:59 Respiratory Rate 17 12/29/24 01:59 Blood Pressure 162/100 H 12/29/24 01:59 Pulse Oximetry 97 12/29/24 01:59 Oxygen Delivery Room Air 12/28/24 21:41 MDM - Back Pain/Injury MDM Narrative Medical decision making narrative: The patient was evaluated by myself in the emergency department. History is obtained from patient who is an independent historian and physical exam was performed. External medical records were reviewed at this time. IV was established and pertinent tests were ordered. Patient was administered 4 mg IV morphine 4 mg IV Zofran. Laboratory results obtained revealing mild elevation of patient's inflammatory markers which are stable CRP 2.2 an ESR of 32 otherwise unremarkable. Differential diagnosis considerations include autoimmune flare-up/polymyositis, narcotic-seeking behavior, rhabdo. Comorbidities impacting this visit include chronic pain, concern for narcotic-seeking behavior. I have evaluated and discussed social determinants of health with the patient that could potentially impact subsequent diagnosis and treatment plans. On repeat assessment of the patient, reevaluation revealed that the patient is doing well and is in no acute distress. Patient symptoms have improved since she arrived to our emergency department. Repeat vital signs were all reviewed and noted to be stable. Differential diagnosis and treatment plan were discussed with the patient at bedside. Patient agrees with discussion and after shared medical decision making agrees with discharge. All questions were answered to the patient's satisfaction. Patient will follow up with her PCP in 3-5 days. Patient was provided with strict return precautions and instructed to return to the emergency department if any new or worsening symptoms develop. The patient was discharged in stable condition. Lab Data 12/29/24 01:28 12/29/24 01:28 Labs: Lab Results 12/29/24 Range/Units 01:28 WBC 13.7 H (4.5-10.0) K/mm3 RBC 4.28 (4.2-5.4) M/mm3 Hgb 12.2 (12.0-15.0) g/dL Hct 39.2 (37.0-47.0) % MCV 91.6 (80-100) fl MCH 28.5 (26-34) pg MCHC 31.1 L (32-36) g/dl RDW 13.4 (11.5-14.5) % Plt Count 283 (150-375) k/mm3 MPV 9.8 (7.4-10.4) fl Immature Gran % (Auto) 0.4 (0-0.5) % Neut % (Auto) 72.0 (45.5-73.1) % Lymph % (Auto) 17.4 L (18.3-44.2) % [place] % (Auto) 7.6 (2.6-8.5) % Eos % (Auto) 2.2 (0-4.4) % Baso % (Auto) 0.4 (0.2-1.2) % Lymph # (Auto) 2.38 (0.9-3.2) K/mm3 [place] # (Auto) 1.0 H (0.1-0.6) K/mm3 Eos # (Auto) 0.3 (0-0.3) K/mm3 Baso # (Auto) 0.1 (0.0-0.1) K/mm3 Abs Immat Gran (auto) 0.06 H (0.00-0.031) K/mm3 Absolute Neuts (auto) 9.9 H (1.3-6.7) K/mm3 Absolute Nucleated RBC 0.000 (0.0-0.012) K/mm3 Nucleated RBC % 0.0 (0.0-0.2) % ESR 32 H (0-20) mm/hr Sodium 137 (137-145) mmol/L Potassium 4.4 (3.4-5.0) mmol/L Chloride 101 (98-107) mmol/L Carbon Dioxide 29 (22-30) mmol/L Anion Gap 7 (4-12) mmol/L BUN 26 H (7-17) mg/dL Creatinine 0.97 (0.7-1.0) mg/dL Estim Creat Clear Calc Not Reportable Estimated GFR 57 L (59 - ) Glucose 231 H (65-110) mg/dL Calcium 9.8 (8.4-10.2) mg/dL Total Bilirubin 0.5 (0.2-1.3) mg/dL AST 26 (14-36) U/L ALT 26 (6-35) U/L Alkaline Phosphatase 76 (38-126) U/L Total Creatine Kinase 92 (30-135) U/L C-Reactive Protein 2.2 H (<1.0) mg/dL Total Protein 8.1 (6.3-8.2) g/dL Albumin 4.1 (3.5-5.1) g/dL Discharge Plan Discharge Clinical Impression: Chronic pain Patient Disposition: Home Condition: Improved Instructions: Antibiotic Form, Chronic Pain (ED) Additional Instructions: Please follow-up with your primary care physician/flaking roll operator as scheduled for your upcoming appointment next week. Return to the ED if any new or worsening symptoms develop. Patient Language: Russian Prescriptions: No Action gabapentin 300 mg capsule 300 mg PO TID exemestane 25 mg tablet 25 mg PO HS ropinirole 5 mg tablet 5 mg PO HS insulin glargine [Lantus Solostar U-100 Insulin] 100 unit/mL (3 mL) insulin pen 50 unit SUBCUT QAM insulin lispro [Humalog KwikPen Insulin] 100 unit/mL insulin pen 32 unit SUBCUT TID Patient Comments: PATIENT EXPERIENCES LOW BLOOD SUGAR IN THE HOSPITAL albuterol sulfate 90 mcg/actuation HFA aerosol inhaler 1 inh inhalation QID PRN (Reason: shortness of breath or wheezing) Qty: 6.7 0RF oxybutynin chloride 15 mg tablet extended release 24hr 15 mg PO DAILY ondansetron 4 mg tablet,disintegrating 4 mg PO Q8H PRN (Reason: nausea and vomiting) Qty: 10 0RF lidocaine 5 % ointment 1 applic topical TID PRN (Reason: skin irritation) Qty: 50 0RF prednisone 10 mg tablet 10 mg PO DAILY Xarelto 20 mg tablet 20 mg PO 0900 pantoprazole [Protonix] 40 mg tablet,delayed release (DR/EC) 40 mg PO BID 30 Days Qty: 60 0RF hydrocodone-acetaminophen 10-325 mg tablet 1 tablet PO Q6H PRN (Reason: pain (scale score 7-10)) 5 Days Qty: 10 0RF furosemide [Lasix] 20 mg tablet 20 mg PO DAILY Qty: 30 0RF Follow-up/Referrals: Shahla,Justen Spicer MD [Primary Care Provider] - 3 Days Time of Disposition: 03:58
[2024-12-29] MEDS: ONDANSETRON INJ 4 MG/2 ML VIAL IV PUSH (03:59)
[2024-12-29] MEDS: MORPHINE SULFATE (*CRX) 4 MG/ML INJ IV PUSH (03:59)
== END 2024-12-29 05:06 | disposition home or self-care (01) ==
PROVIDERS: Emergency Provider Emergency Medicine; PCP Internal Medicine
DX: G89.29 Other chronic pain (principal); M33.20 Polymyositis, organ involvement unspecified; I50.9 Heart failure, unspecified; E11.43 Type 2 diabetes mellitus with diabetic autonomic (poly)neuropathy; K31.84 Gastroparesis; E11.42 Type 2 diabetes mellitus with diabetic polyneuropathy; E66.01 Morbid (severe) obesity due to excess calories; Z68.43 Body mass index [BMI] 50.0-59.9, adult; K21.9 Gastro-esophageal reflux disease without esophagitis; K58.9 Irritable bowel syndrome, unspecified; N32.81 Overactive bladder; G47.33 Obstructive sleep apnea (adult) (pediatric); F32.A Depression, unspecified; F41.9 Anxiety disorder, unspecified; Z96.82 Presence of neurostimulator; Z96.651 Presence of right artificial knee joint; Z86.711 Personal history of pulmonary embolism; Z86.718 Personal history of other venous thrombosis and embolism; Z85.3 Personal history of malignant neoplasm of breast; Z87.442 Personal history of urinary calculi; Z90.49 Acquired absence of other specified parts of digestive tract; Z90.13 Acquired absence of bilateral breasts and nipples; Z90.721 Acquired absence of ovaries, unilateral; Z77.22 Contact with and (suspected) exposure to environmental tobacco smoke (acute) (chronic); Z79.4 Long term (current) use of insulin; Z79.899 Other long term (current) drug therapy; Z79.01 Long term (current) use of anticoagulants
CPT/HCPCS: 36415; 80053; 82550; 85025; 85652; 86140; 96374; 96375; 99284; J2270; J2405

== ENCOUNTER 2025-01-25 05:38 | Emergency (ER) | payer MEDICARE, MEDICAID, SELFPAY ==
[2025-01-25] VITALS (19 sets, daily range): BP systolic 136–175; BP diastolic 65–81; PULSE 78–99; RESP 12–27; TEMP 36.6; O2SAT 94–100
--- NOTE | ~2025-01-25 | CT_ITS ---
EXAMINATION: CTA chest PE abdomen pel DATE: 01/25/2025 08:49 INDICATION: Shortness of breath. TECHNIQUE: Computed tomography angiography (CTA) of the chest was performed with 100 mL Omnipaque-350 intravenous contrast timed to evaluate the pulmonary arteries. Coronal maximum intensity projection 3D-reconstructions were created by the technologist. Computed tomography (CT) of the abdomen and pelvis was performed with intravenous contrast. Automated exposure control and iterative reconstruction technique were employed. The dose-length product was 2312.26 mGy-cm. COMPARISON: Chest CT 10/2724, CT abdomen and pelvis 10/15/2024 FINDINGS: CTA chest: The lungs demonstrate mild atelectasis. No pleural effusion. There are nodules in the thyroid measuring up to 13 mm, likely not clinically significant. Cardiomegaly is noted. No pericardial effusion. There is no pulmonary embolus. There is severe thoracic spondylosis. Epidural electrodes are noted. CT abdomen and pelvis: The liver and spleen are normal. There are changes of cholecystectomy. The pancreas and adrenal glands are normal. There is cortical thinning of the kidneys. There are cysts in right kidney measuring up to 2.0 cm. There are surgical changes of anterior abdominal wall. There is diverticulosis of the colon without evidence of diverticulitis. There are no dilated loops of bowel. The appendix is normal. There are no pathologically enlarged lymph nodes. There is no free intraperitoneal fluid. There is soft tissue swelling at the umbilicus. There is moderate lumbar spondylosis. IMPRESSION: 1. No pulmonary embolus. Reviewed, dictated and finalized at location E. IMPRESSION: 1. No pulmonary embolus.
--- NOTE | ~2025-01-25 | XR_ITS ---
Examination: XR chest 1V portable Clinical History: Chest pain Comparison: 12/23/2024 Technique: Portable AP Findings: Spinal stimulator leads. Mild cardiomegaly. Lungs clear. No acute bony abnormality. IMPRESSION: 1. No acute cardiopulmonary findings given portable technique. Consider PA and lateral films with deep inspiration. Reviewed, dictated and finalized at location R.
--- NOTE | 2025-01-25 06:03 | ECG_ITS ---
Test Date: 2025-01-25 06:19:35 Measurements Intervals [place] Rate: 81 P: 34 [place]: 123 QRS: 3 QRSD: 78 T: 47 QT: 370 QTc: 430 Interpretive Statements SINUS RHYTHM NONSPECIFIC ST-T WAVE ABNORMALITY- HIGH LATERAL LEADS BASELINE ARTIFACT- I, III, AVR, AVL BORDERLINE ECG Compared to ECG 12/23/2024 12:41:25 NO SIGNIFICANT CHANGE Electronically Signed On 01-25-2025 07:11:14 CDT by Jonatan Parra D.O.
[2025-01-25 06:12] LABS: Hematocrit 41.4 % (37.0-47.0); Hemoglobin 12.8 g/dL (12.0-15.0); Immature Granulocyte Percent A 0.6 % (0-0.5); Lymphocytes Absolute Auto 3.87 K/mm3 (0.9-3.2); Mean Corpuscular HGB Conc 30.9 g/dl (32-36); Mean Corpuscular Hemoglobin 28.1 pg (26-34); Mean Corpuscular Volume 90.8 fl (80-100); Nucleated Red Blood Cells Absolute Auto 0.000 K/mm3 (0.0-0.012); Nucleated Red Blood Cells Perc 0.0 % (0.0-0.2); Platelet Count Result 270 k/mm3 (150-375); Red Blood Count 4.56 M/mm3 (4.2-5.4); White Blood Count 15.5 K/mm3 (4.5-10.0)
[2025-01-25 06:36] LABS: Alanine Aminotransferase 27 U/L (6-35); Albumin Level 4.0 g/dL (3.5-5.1); Alkaline Phosphatase 69 U/L (38-126); Anion Gap 8 mmol/L (4-12); Aspartate Amino Transferase 26 U/L (14-36); Bilirubin,Total 0.8 mg/dL (0.2-1.3); Blood Urea Nitrogen 28 mg/dL (7-17); Calcium 9.7 mg/dL (8.4-10.2); Carbon Dioxide 26 mmol/L (22-30); Chloride 102 mmol/L (98-107); Estimated CRCL calculation 71 ml/min; Estimated Glomerular Filt Rate > 60; Glucose 160 mg/dL (65-110); Potassium 3.8 mmol/L (3.4-5.0); Sodium 136 mmol/L (137-145); Total Protein 7.8 g/dL (6.3-8.2)
[2025-01-25 06:43] LABS: INR 1.2; Prothrombin Time 15.2 Seconds (11.1-14.7)
[2025-01-25 06:44] LABS: Partial Thromboplastin Time 27.4 Seconds (22.3-36.8)
[2025-01-25 07:31] LABS: NT Pro B Type Natriuretic Pept 164 pg/mL (19.9-100); Troponin I 0.014 ng/mL (0.000-0.034)
--- NOTE | 2025-01-25 07:50 | ED.SOB ---
HPI - SOB/Dyspnea General Chief Complaint: Shortness of Breath/Dyspnea Stated Complaint: SOB/CP Time Seen by Provider: 01/25/25 07:01 Source: patient Mode of arrival: ambulatory Limitations: no limitations History of Present Illness HPI Narrative: This is a 69-year-old female, with history of PE, rheumatoid arthritis recently started on methotrexate and CHF presents emergency department complaining of chest and shortness of breath. She has she states she has been feeling unwell beginning yesterday with associated palpitations. She states her shortness breath is worsened by flat physical exertion. She denies bleeding, loss of consciousness vomiting pain with urination. She has no other complaints at this time. Related Data Home Medications ?Medication ?Instructions ?Recorded ?Confirmed ?Last Taken ?Type exemestane 25 mg tablet 25 mg PO HS 01/06/20 11/16/24 11/15/24 History insulin glargine 100 unit/mL (3 50 unit subcut QAM 01/06/20 11/16/24 11/15/24 History mL) subcutaneous pen (Lantus Solostar U-100 Insulin) ropinirole 5 mg tablet 5 mg PO HS 01/06/20 11/16/24 11/15/24 History insulin lispro 100 unit/mL 32 unit subcut TID 03/19/22 11/16/24 11/15/24 History subcutaneous pen (Humalog KwikPen (U-100) Insulin) oxybutynin chloride 15 mg 15 mg PO DAILY 11/06/22 11/16/24 11/15/24 History tablet,extended release 24 hr gabapentin 300 mg capsule 300 mg PO TID 06/25/23 11/16/24 11/15/24 History prednisone 10 mg tablet 10 mg PO DAILY 10/08/24 11/16/24 11/15/24 History rivaroxaban 20 mg tablet (Xarelto) [place] [address]/08/24 11/16/24 11/15/24 History Allergies Allergy/AdvReac Type Severity Reaction Status Date / Time ceftriaxone Allergy Severe SOB Verified 12/29/24 02:00 cephalexin Allergy Severe Difficulty Verified 12/29/24 02:00 Breathing Cephalosporins Allergy Severe Difficulty Verified 12/29/24 02:00 Breathing lorazepam Allergy Severe Swelling Verified 12/29/24 02:00 trazodone Allergy Severe Swelling Verified 12/29/24 02:00 of Lip/Tongue/Throat metoclopramide Allergy Intermediate Other Verified 12/29/24 02:00 azithromycin Allergy Mild Itching Verified 12/29/24 02:00 chlorhexidine Allergy Mild BLISTERING Verified 12/29/24 02:00 levofloxacin Allergy Mild Hives / Verified 12/29/24 02:00 Red Face ketorolac Allergy Itching Verified 12/29/24 02:00 latex Allergy Rash Verified 12/29/24 02:00 meropenem Allergy Rash Verified 12/29/24 02:00 nitrofurantoin Allergy Itching Verified 12/29/24 02:00 piperacillin Allergy Rash Verified 12/29/24 02:00 reslizumab Allergy Hives Verified 12/29/24 02:00 trimethoprim (From Allergy Itching Verified 12/29/24 02:00 Sulfamethoxazole-Trimethoprim) sulfamethoxazole (From AdvReac Severe Anaphylaxis Verified 12/29/24 02:00 Sulfamethoxazole-Trimethoprim) clindamycin AdvReac Intermediate Nausea and Verified 12/29/24 02:00 Vomiting doxycycline AdvReac Mild Itching Verified 12/29/24 02:00 oxycodone AdvReac Mild Vomiting Verified 12/29/24 02:00 amlodipine AdvReac Swelling Verified 12/29/24 02:00 lisinopril AdvReac Swelling Verified 12/29/24 02:00 pregabalin AdvReac Swelling Verified 12/29/24 02:00 Review of Systems Review of Systems: All systems reviewed & are unremarkable except as noted in HPI and below PMFSH Past Medical History Medical History Polymyositis with myopathy Gastroparesis Obstructive sleep apnea on CPAP Restless leg syndrome Pulmonary embolism positive for coagulation workup Deep venous thrombosis Type 2 diabetes mellitus Throat pain in adult Oral ulcer Chronic anticoagulation Overactive bladder Irritable bowel syndrome Congestive heart failure Chronic back pain Collagenous colitis Morbid obesity Breast cancer Depression Anxiety Peripheral neuropathy Kidney stone Multiple thyroid nodules Surgical History Surgical History History of umbilical hernia repair History of colonoscopy Status post insertion of spinal cord stimulator History of cystoscopy History of ureter stent History of cholecystectomy History of bilateral mastectomy History of esophagogastroduodenoscopy (EGD) History of right oophorectomy History of total right knee replacement History of cardiac catheterization Reportedly negative for coronary artery disease. Family History Family History Mother Diabetes mellitus Acute myocardial infarction Congestive heart failure Hypertension Cerebrovascular accident Coronary artery disease Father Prostate carcinoma Sibling Acute myocardial infarction Breast cancer Chronic obstructive pulmonary disease Social History Social History Social History: Surrogate medical decision maker: Jimmie Marques, spouse. (Previously listed though she reports being now) Code status: Full code. Smoking packs per day: 0 Smoking cigarettes per day: 0.0 Years smoked: 2 Smoking pack-years: 0.00 Smoking status: Never smoker Second hand tobacco smoke exposure: Yes Alcohol intake: never Substance use: never Substance use type: does not use Do You Feel Safe in your Home?: Yes Lack of Transportation: YES Lack of Food: Never True Current Housing: I Have Housing Concerned About Future Housing: No Difficulty Paying Gas/Electric Bills: No Difficulty Paying for Meds: No Currently Unemployed: No Education: Associate Degree Difficulty w/ Childcare or Family Care: No Living arrangements: with family Additional living arrangements comments: daughter Additional occupation/education comments: Disabled. Spiritual care concerns: No Exam Narrative: GENERAL: Well-developed, well-nourished, and in no acute distress. HEAD: Normocephalic, atraumatic. EYES: PERRLA and EOMI. NECK: Supple. No JVD CHEST: Clear to auscultation. No respiratory distress. No wheezes rales or rhonchi HEART: Regular rate and rhythm. No murmur heard. Normal peripheral pulses. ABDOMEN: Soft, mild diffuse tenderness to palpation rebound or guarding, distended, normal active bowel sounds. EXTREMITIES: Normal range of motion. Trace lower extremity edema bilaterally SKIN: Warm, dry, no rash. NEURO: Alert and oriented x3. No focal deficit. Moving all 4 limbs spontaneously PSYCH: Normal mood and affect. Course Course Emergency Course: 10:16 - CBC demonstrates elevated white blood cell count of 15 which appears to be chronic. Hemoglobin and platelets within normal limits. Chemistries demonstrate glucose elevation of 160 and mild hyponatremia with sodium of 136 but is otherwise unremarkable. Troponin negative at 0.014 with BNP of 164. CT PE protocol negative for PE or acute cardiopulmonary process. CT abdomen pelvis not concerning for acute intra-abdominal process. EKG not concerning for arrhythmia, ischemia or other acute changes. The patient has not desaturated at her vital signs are otherwise unremarkable. Will discharge with recommendation for increasing Lasix dose to 40 mg a day for 3 days and primary care follow-up. I discussed the findings and recommendations with the patient. Discussed return and emergency precautions including signs/symptoms of ACS and respiratory distress. The patient voiced understanding and agreement with the plan. All questions answered to her satisfaction. Vital Signs Vital signs: Vital Signs Temperature 97.8 F 01/25/25 05:42 Pulse Rate 86 01/25/25 05:42 Respiratory Rate 14 01/25/25 05:42 Blood Pressure 162/81 H 01/25/25 05:42 Pulse Oximetry 100 01/25/25 05:42 Oxygen Delivery Room Air 01/25/25 05:42 Temperature 97.8 F 01/25/25 05:42 Pulse Rate 88 01/25/25 10:45 Respiratory Rate 17 01/25/25 10:45 Blood Pressure 145/75 H 01/25/25 10:32 Pulse Oximetry 97 01/25/25 10:32 Oxygen Delivery Room Air 01/25/25 06:01 MDM - SOB/Dyspnea MDM Narrative Medical decision making narrative: Plan: Labs, EKG, imaging, troponin, reassess Differential Diagnosis Differential diagnosis: Likely congestive heart failure, community acquired pneumonia, pulmonary embolism and other (Bowel obstruction, anemia, medication side effect, metabolic abnormality, other) Lab Data 01/25/25 06:06 01/25/25 06:05 Labs: Lab Results 01/25/25 01/25/25 01/25/25 Range/Units 06:05 06:06 06:21 WBC 15.5 H (4.5-10.0) K/mm3 RBC 4.56 (4.2-5.4) M/mm3 Hgb 12.8 (12.0-15.0) g/dL Hct 41.4 (37.0-47.0) % MCV 90.8 (80-100) fl MCH 28.1 (26-34) pg MCHC 30.9 L (32-36) g/dl RDW 14.3 (11.5-14.5) % Plt Count 270 (150-375) k/mm3 MPV 10.0 (7.4-10.4) fl Immature Gran % (Auto) 0.6 H (0-0.5) % Neut % (Auto) 65.8 (45.5-73.1) % Lymph % (Auto) 24.9 (18.3-44.2) % [place] % (Auto) 7.0 (2.6-8.5) % Eos % (Auto) 1.4 (0-4.4) % Baso % (Auto) 0.3 (0.2-1.2) % Lymph # (Auto) 3.87 H (0.9-3.2) K/mm3 [place] # (Auto) 1.1 H (0.1-0.6) K/mm3 Eos # (Auto) 0.2 (0-0.3) K/mm3 Baso # (Auto) 0.1 (0.0-0.1) K/mm3 Abs Immat Gran (auto) 0.09 H (0.00-0.031) K/mm3 Absolute Neuts (auto) 10.2 H (1.3-6.7) K/mm3 Absolute Nucleated RBC 0.000 (0.0-0.012) K/mm3 Nucleated RBC % 0.0 (0.0-0.2) % PT 15.2 H (11.1-14.7) Seconds INR 1.2 APTT 27.4 (22.3-36.8) Seconds Sodium 136 L (137-145) mmol/L Potassium 3.8 (3.4-5.0) mmol/L Chloride 102 (98-107) mmol/L Carbon Dioxide 26 (22-30) mmol/L Anion Gap 8 (4-12) mmol/L BUN 28 H (7-17) mg/dL Creatinine 0.84 (0.7-1.0) mg/dL Estim Creat Clear Calc 71 ml/min Estimated GFR > 60 (59 - ) Glucose 160 H (65-110) mg/dL Calcium 9.7 (8.4-10.2) mg/dL Total Bilirubin 0.8 (0.2-1.3) mg/dL AST 26 (14-36) U/L ALT 27 (6-35) U/L Alkaline Phosphatase 69 (38-126) U/L Troponin I 0.014 (0.000-0.034) ng/mL NT-Pro-B Natriuret Pep 164 H (19.9-100) pg/mL Total Protein 7.8 (6.3-8.2) g/dL Albumin 4.0 (3.5-5.1) g/dL ECG Data EKG #1: Attestation: I personally reviewed and interpreted this ECG as follows: ECG completion date: 01/25/25 ECG completion time: 06:19 Prior ECG tracings: available for review Interpretation: Sinus rhythm, rate 81, normal axis, no ST segment elevations or T-wave inversions concerning for ischemia, normal intervals with QTC of 430. No significant change compared to EKG done in December 2024 Discharge Plan Discharge Clinical Impression: Shortness of breath, CHF (congestive heart failure) Patient Disposition: Home Condition: Stable Instructions: Antibiotic Form, Heart Failure (ED) Additional Instructions: You were seen in the emergency department. Your labs and EKG were not concerning for injury to the heart. A scan of lungs was not concerned for blood clot or fluid collection. Your labs were not concerning for significant worsening of your CHF. I recommend taking 40 mg of Lasix once a day for 3 days then returning to your normal 20 mg a day. 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 If you develop chest pain, shortness of breath, loss of consciousness, or if you have other emergent concerns for life, limb, or eyesight, return to the emergency department. Patient Language: Malagasy Prescriptions: No Action gabapentin 300 mg capsule 300 mg PO TID exemestane 25 mg tablet 25 mg PO HS ropinirole 5 mg tablet 5 mg PO HS insulin glargine [Lantus Solostar U-100 Insulin] 100 unit/mL (3 mL) insulin pen 50 unit SUBCUT QAM insulin lispro [Humalog KwikPen Insulin] 100 unit/mL insulin pen 32 unit SUBCUT TID Patient Comments: PATIENT EXPERIENCES LOW BLOOD SUGAR IN THE HOSPITAL albuterol sulfate 90 mcg/actuation HFA aerosol inhaler 1 inh inhalation QID PRN (Reason: shortness of breath or wheezing) Qty: 6.7 0RF oxybutynin chloride 15 mg tablet extended release 24hr 15 mg PO DAILY ondansetron 4 mg tablet,disintegrating 4 mg PO Q8H PRN (Reason: nausea and vomiting) Qty: 10 0RF lidocaine 5 % ointment 1 applic topical TID PRN (Reason: skin irritation) Qty: 50 0RF prednisone 10 mg tablet 10 mg PO DAILY Xarelto 20 mg tablet 20 mg PO 0900 pantoprazole [Protonix] 40 mg tablet,delayed release (DR/EC) 40 mg PO BID 30 Days Qty: 60 0RF hydrocodone-acetaminophen 10-325 mg tablet 1 tablet PO Q6H PRN (Reason: pain (scale score 7-10)) 5 Days Qty: 10 0RF furosemide [Lasix] 20 mg tablet 20 mg PO DAILY Qty: 30 0RF Follow-up/Referrals: Shahla,Justen Spicer MD [Primary Care Provider] - 1 Week Time of Disposition: 10:18
[2025-01-25] MEDS: ONDANSETRON INJ 4 MG/2 ML VIAL IV PUSH (08:04)
[2025-01-25] MEDS: MORPHINE SULFATE (*CRX) 4 MG/ML INJ IV PUSH (08:05)
== END 2025-01-25 11:19 | disposition home or self-care (01) ==
PROVIDERS: Student in an Organized Health Care Education/Training Program; Emergency Provider Preventive Medicine Aerospace Medicine; PCP Internal Medicine
DX: I50.9 Heart failure, unspecified (principal); E11.43 Type 2 diabetes mellitus with diabetic autonomic (poly)neuropathy; K31.84 Gastroparesis; E11.42 Type 2 diabetes mellitus with diabetic polyneuropathy; E66.01 Morbid (severe) obesity due to excess calories; Z68.43 Body mass index [BMI] 50.0-59.9, adult; M06.9 Rheumatoid arthritis, unspecified; K21.9 Gastro-esophageal reflux disease without esophagitis; K58.9 Irritable bowel syndrome, unspecified; N32.81 Overactive bladder; G47.33 Obstructive sleep apnea (adult) (pediatric); F32.A Depression, unspecified; F41.9 Anxiety disorder, unspecified; Z96.82 Presence of neurostimulator; Z96.651 Presence of right artificial knee joint; Z86.711 Personal history of pulmonary embolism; Z86.718 Personal history of other venous thrombosis and embolism; Z85.3 Personal history of malignant neoplasm of breast; Z87.442 Personal history of urinary calculi; Z90.49 Acquired absence of other specified parts of digestive tract; Z90.13 Acquired absence of bilateral breasts and nipples; Z90.721 Acquired absence of ovaries, unilateral; Z77.22 Contact with and (suspected) exposure to environmental tobacco smoke (acute) (chronic); Z79.4 Long term (current) use of insulin; Z79.899 Other long term (current) drug therapy; Z79.01 Long term (current) use of anticoagulants; Z79.631 Long term (current) use of antimetabolite agent; R94.31 Abnormal electrocardiogram [ECG] [EKG]
CPT/HCPCS: 36415; 71045; 71275; 74177; 80053; 83880; 84484; 85025; 85610; 85730; 93005; 96374; 96375; 99284; J2270; J2405; Q9967

== ENCOUNTER 2025-02-03 13:07 | Emergency (ER) | payer MEDICARE, MEDICAID, SELFPAY ==
--- OUTSIDE RECORDS SUMMARY | 2025-01-30 01:13 | XMS_ITS | Encounter Summary ---
Author Organization [facility] Address [address] [place] [address] Care Team Providers Care Body Repairer Name Role Phone Justen Gale MD Primary Care Provider Reason for Referral * (Routine) - Authorized Specialty Diagnoses / Procedures Referred By Elyssa benavides Referred To Contact Procedures Follow up with provider Darvin Parekh MD [address] [place] [address] Phone: tel: [place]: [place] [address] [place] [address] [address] [place] [address] Phone: tel: fax: Referral ID Status Reason Start Date Expiration Date V isits Requested Visits Authorized [id number] Authorized 02/02/2025 02/02/2026 1 1 * (Routine) - Authorized Specialty Diagnoses / Procedures Referred By Contkristina t Referred To Contact Procedures Follow up with provider Darvin Parekh MD [address] [place] [address] Phone: tel: fax: Xavier Coronado MD [address] [address] Phone: tel: fax: Referral ID Status Reason Start Date Expiration Date V isits Requested Visits Authorized [id number] Authorized 02/02/2025 02/02/2026 1 1 * Home Connections (Routine) - Pending Review Specialty Diagnoses / Procedures Referred By Elyssa benavides Referred To Contact Home Health Services Diagnoses Acute on chronic diastolic congestive heart failure (HCC) Darvin Parekh MD [address] [place] [address] Phone: tel: fax: [facility] Home Scheduling [address] [place] [address] Phone: tel: Referral ID Status Reason Start Date Expiration Date Visits Requested Visits Authorized [id number] Pending Review Specialty Services Required 01/31/2026 999 999 Reason for Visit * Reason Comments Swelling Leg * Auth/Cert (Routine) Specialty Diagnoses / Procedures Referred By Elyssa benavides Referred To Contact Referral ID Status Reason Start Date Expiration Date Visits Re quested Visits Authorized [id number] 1 1 Encounter Details Date Type Department Care Team (Latest Contact Info) Description 01/30/2025 1:13 AM CDT - 02/02/2025 2:28 PM CDT Hospital Encounter [facility] 4W TELE [address] [place] [address] Patsy Hill MD [address] [place] [address] Drew Calero MD [address] [facility] [facility] , [address] [place] [address] Darvin Parekh MD [address] [place] [address] Hospitalist Discharge Disposition: Home or Self Care Social History Tobacco Use Types Packs/Day Years Used Date Smoking Tobacco: Former Cigarettes Q uit: 12/05/1977 Smokeless Tobacco: Never Alcohol Use Standard Drinks/Week Comments Never 0 (1 standard drink = 0.6 oz pur e alcohol) PRAPARE - Transportation Answer Date Re corded In the past 12 months, has l ack of transportation kept you from medical appointments or from getting medications? Patient declined 01/03/2025 In the past 12 months, has l ack of transportation kept you from meetings, work, or from getting things needed for daily living? Patient declined 01/03/2025 Housing Stability Vital Sign Answer [place] [...] in a chcf (including now)? No 05/16/2023 Housing Stability Vital Sign Answer [place] Recorded In the last 12 months, was t here a time when you were not able to pay the mortgage or rent on time? Patient declined 01/04/20 25 In the past 12 months, how m any times have you moved where you were living? 0 01/03/2025 At any time in the past 12 m onths, were you homeless or living in a chcf (including now)? Patient declined 01/03/2025 AUDIT-C Answer Date Recorded Q1: How often do you have a drink containing alcohol? Never 02/01/2025 Q2: How many drinks containi ng alcohol do you have on a typical day when you are drinking? Patient does not drink Q3: How often do you have si x or more drinks on one occasion? Never 02/01/2025 Overall Financial Resource Strain (CARDIA) Answe r Date Recorded How hard is it for you to pa y for the very basics like food, housing, medical care, and heating? Not hard at all 02/01/2025 [place] [place] [facility] - Occupational Stress Questionnaire Answer Date Recorded Do you feel stress - tense, restless, nervous, or anxious, or unable to sleep at night because your mind is troubled all the time - these days? Not at all 02/01/2025 Hunger Vital Sign Answer Date Recorded Within the past 12 months, y ou worried that your food would run out before you got the money to buy more. Never true 02/02/20 25 Within the past 12 months, t he food you bought just didn't last and you didn't have money to get more. Never true 02/01/2025 PRAPARE - Transportation Answer Date Re corded In the past 12 months, has l ack of transportation kept you from medical appointments or from getting medications? No 01/22 In the past 12 months, has l ack of transportation kept you from meetings, work, or from getting things needed for daily living? No 02/01/2025 Housing Stability Vital Sign Answer [place] Recorded In the last 12 months, was t here a time when you were not able to pay the mortgage or rent on time? No 02/01/2025 In the past 12 months, how m any times have you moved where you were living? 0 02/01/2025 At any time in the past 12 m [facility], were you homeless or living in a chcf (including now)? 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 Gender Identity Not on file Sexual Orientation Not on file documented as of this encounter Last Filed Vital Signs Vital Sign Reading Time Taken Comments Blood Pressure 138/88 02/02/2025 7:40 AM CDT Pulse 83 02/02/2025 7:40 AM CDT Temperature 36.6 C (97.8 F) 02/02/2025 7:40 AM CDT Respiratory Rate 15 02/02/2025 7:40 AM CDT Oxygen Saturation 95% 02/02/2025 7:40 AM CDT Inhaled Oxygen Concentration 21% 02/02/2025 1 2:52 AM CDT Weight 124.7 kg (275 lb) 02/02/2025 3:28 AM CDT Height 154.9 cm (5' 1) 01/30/2025 4:09 AM CDT Body Mass Index 51.96 01/30/2025 4:09 AM CDT documented in this encounter Functional Status * Functional and Cognitive Status Question Answer Date of Assessment Author Is person deaf or have sj us hearing difficulty? No 02/01/2025 12:57 PM Anais Ramirez RN Is person blind or have seri ous difficulty seeing? No 02/01/2025 12:57 PM Anais Ramirez RN Does person have serious difficulty walking/climbing stairs? No 02/01/2025 12:57 PM Anais Ramirez RN Does person have difficulty dressing/bathing? No 02/01/2025 12:57 PM Anais Ramirez RN Does person have difficulty doing errands alone? No 02/01/2025 12:57 PM Anais Ramirez RN Does person have difficulty concentrating/remembering/making decisions? No 02/01/2025 12:57 PM Anais Ramirez RN * Question Answer Date of Assessment Author Q1: How often do you have a drink containing alcohol? Never 02/01/2025 12:57 PM Anais Ramirez RN Q2: How many drinks containing alcohol do you have on a typical day when you are drinking? Patient does not drink 02/01/2025 12:57 PM Anais Ramirez RN Q3: How often do you have six or more drinks on one occasion? Never 02/01/2025 12:57 PM Anais Ramirez RN * AUDIT-C Score Answer Date of Assessment Author 0 02/01/2025 12:57 PM Anais Dash RN * Is person deaf or have serious hearing difficulty? Answer Date of Assessment Author No 02/01/2025 12:57 PM Anais Dash RN * Is person blind or have serious difficulty seeing? Answer Date of Assessment Author No 02/01/2025 12:57 PM Anais Dash RN * Does person have serious difficulty walking/climbing stairs? Answer Date of Assessment Author No 02/01/2025 12:57 PM Anais Dash RN * Does person have difficulty dressing/bathing? Answer Date of Assessment Author No 02/01/2025 12:57 PM CDT Anais Hernández RN * Does person have difficulty doing errands alone? Answer Date of Assessment Author No 02/01/2025 12:57 PM CDT Anais Hernández RN documented as of this encounter Mental Status * Does person have difficulty concentrating/remembering/making decisions? Answer Entry Date Author No 02/01/2025 12:57 PM CDT Anais Hernández RN documented in this encounter Discharge Summaries * Darvin Parekh MD - 02/02/2025 12:24 PM CDT HOSPITALIST DISCHARGE SUMMARY NAME: Karly Marques : 1955 DATE OF ADMISSION: 01/30/2025 DATE OF DISCHARGE: 02/02/2025 FINAL DIAGNOSES: Include all new and active diagnoses. Acute on chronic HFpEF PMR on steroids Breast cancer Obesity DISCHARGE DESTINATION: Home FOLLOW UP PLAN: Include list of active issues: Next steps Testing & Referrals Scheduled: Testing & Referrals TBD: Timing Provider PCP Cardiology Rheumatology GOALS OF CARE FOLLOW UP PLAN Readmission Risk Score:18.4 EOL Index: 35 Not Applicable PENDING TEST RESULTS: None INCIDENTAL FINDINGS REQUIRING FOLLOW UP: None READMISSION RISK SCORE: 19+: high 30 day readmission risk 0-18: low-moderate 30 day readmission risk EOL INDEX: 18.4 at 12:24 PM 02/02/2025 35 at 12:24 PM 02/02/2025 Secondary/Resolved/Significant Prior Diagnoses: Lower extremity swelling HOSPITAL COURSE: (include consults and procedure details) Karly Marques is a 69-year-old female with a history of heart failure with preserved ejection fraction (HFpEF), obstructive sleep apnea, prior pulmonary embolism and deep vein thrombosis on chronic anticoagulation, polymyositis on steroids and methotrexate, type 2 diabetes mellitus, and breastcancer status post bilateral mastectomy and radiation, who presented with worsening shortness of breath, fatigue, and increased bilateral lower extremity and facial edema. The principal diagnosis was acute on chronic HFpEF exacerbation, established through clinical presentation, laboratory findings (including normal NT pro BNP and negative troponins), chest x-ray showing pulmonary vascular congestion, and echocardiogram demonstrating preserved ejection fraction with diastolic dysfunction and mild valvular disease. Cardiology was consulted and confirmed the diagnosis, noting volume overload and recommending continued diuresis. She was managed with intravenous furosemide, resulting in significant diuresis, improvement in edema, and relief of dyspnea; she was transitioned to oral furosemide prior to discharge. Electrolytes, renal function, and daily weights were closely monitored throughout her stay. Blood pressure was controlled on her home regimen, and no additional antihypertensive therapy was required. Her PMR was managed with prednisone and methotrexate, with continued monitoring of inflammatory markers. She experienced steroid-induced hyperglycemia, with inpatient management including up-titratedinsulin and continuation of empagliflozin; diabetes education and nutrition consults were provided,and her diet was adjusted to consistent carbohydrate and cardiac standards with fluid restriction. She reported sore throat and oral discomfort, which was evaluated for possible thrush; strep testing was negative and nystatin was administered for symptomatic relief. Her chronic anticoagulation forprior PE/DVT was maintained with rivaroxaban. Obstructive sleep apnea was managed with nocturnal CPAP support. Physical and occupational therapy assessments identified decreased endurance and functional mobility, but she returned to baseline and was deemed safe for discharge home without ongoing skilled therapy needs. Other chronic issues addressed during admission included morbid obesity, chronic back pain, and history of breast cancer on exemestane, with appropriate continuation of outpatient therapies. Spironolactone was discontinued due to prior intolerance. At discharge, she was euvolemic, with resolution of acute symptoms and stable laboratory parameters. I did discuss given that she is experiencing hyperglycemia, increased anxiety, fluid retention to continue discussion with Rheumatology for rapid taper of her steroids. She was recommended to closelyfollow-up with Cardiology, Lasix at discharge was 40 b.i.d.. POA ACTIVATED STATUS: NO RADIOLOGY: (last 7 days) + additional pertinent studies XR Chest 1Vw Portable Result Date: 01/30/2025 IMPRESSION: As above. > Interpreting Provider: Justen Lynch MD on 01/30/2025 8:29 AM ADDITIONAL PERTINENT STUDIES: None RECENT/NOTABLE LABS: include pertinent positives Recent Labs Component Name 02/02/25 0823 SODIUM 137 POTASSIUM 3.5 CHLORIDE 94* CO2 30* BUN 48* CREATININE 1.10 EGFR 55* Recent Labs Component Name 01/30/25 0120 WBC 13.4* HGB 12.7 HCT 41.2 PLTCOUNT 258 Recent Labs Component Name 07/26/23 2226 02/21/23 1830 02/17/23 1838 INR 1.1 1.0 1.0 VITALS/MENTAL STATUS/NOTIBLE EXAM FINDINGS Most recent weight: Weight: 124.7 kg (275 lb) (02/02/25 0328) BP 138/88 (BP Location: Right arm, Patient Position: Lying) Pulse 83 Temp 97.8 ??F (36.6 ??C) (Oral) Resp 15 Ht 1.549 m (5' 1) Wt 124.7 kg (275 lb) SpO2 95% Exam: Physical Exam Constitutional: Appearance: Normal appearance. She is not [...] is no guarding. Musculoskeletal: Right lower leg: No edema. Left lower leg: No edema. Skin: Coloration: Skin is not jaundiced. Findings: No bruising or lesion. Neurological: General: No focal deficit present. Mental Status: She is alert and oriented to person, place, and time. DISCHARGE MEDICATIONS AND ALLERGIES This list of medications is preliminary and tentative: please see the Patient Discharge Instructions for patients discharged home or the Facility Transfer Order for the final and accurate medication list. Current Discharge Medication List CONTINUE taking these medications which have CHANGED Instructions Authorizing Provider furosemide 40 MG tablet What changed: medication strength how much to take when to take this Commonly known as: Lasix Quantity Dispensed: 30 tablet Take 1 (one) tablet by mouth 2 times daily Darvin Parekh MD HumaLOG KwikPen 100 UNIT/ML pen What changed: how much to take additional instructions Generic drug: insulin lispro Quantity Dispensed: 3 mL Inject 6 (six) Units subcutaneously 3 times daily before meals Mike Bhandari MD Lantus SoloStar pen What changed: how much to take Generic drug: insulin glargine Quantity Dispensed: 15 mL Inject 20 (twenty) Units subcutaneously once daily Mike Bhandari MD predniSONE 10 MG tablet What changed: how much to take Another medication with the same name was removed. Continue taking this medication, and follow the directions you see here. Commonly known as: Deltasone Take 2 (two) tablets by mouth daily with breakfast Darvin Parekh MD CONTINUE taking these medications which have NOT CHANGED Instructions Authorizing Provider acetaminophen 500 MG tablet Commonly known as: Tylenol Take 1 (one) tablet by mouth every 4 hours as needed Maximum allowable Acetaminophen amount = 4 Grams (4000 mg) / 24 hours. Mike Bhandari MD albuterol HFA 108 (90 Base) MCG/ACT inhaler Commonly known as: Proventil; Ventolin; Proair Inhale 2 (two) puffs by mouth every 6 hours as needed aspirin 81 MG chew tablet Commonly known as: Aspirin Quantity Dispensed: 30 tablet Take 1 (one) tablet by mouth once daily (chew and swallow) Mike Bhandari MD atorvastatin 40 MG tablet Commonly known as: Lipitor Quantity Dispensed: 30 tablet Take 1 (one) tablet by mouth at bedtime Mike Bhandari MD B-D ULTRAFINE III SHORT PEN 31G X 8 MM needle Generic drug: insulin pen needle Quantity Dispensed: 300 Each 4 times daily Mckenzie Johnston MD diclofenac sodium 1 % gel Commonly known as: Voltaren Apply 2 (two) g to affected area 4 times daily Mike Bhandari MD diphenhydrAMINE 25 MG capsule Commonly known as: Benadryl Take 1 (one) capsule by mouth every 6 hours as needed for Itching Mike Bhandari MD empagliflozin 10 MG tablet Commonly known as: Jardiance Quantity Dispensed: 30 tablet Take 1 (one) tablet by mouth once daily Mike Bhandari MD exemestane 25 MG tablet Commonly known as: Aromasin Take 1 (one) tablet by mouth DAILY folic acid 1 MG tablet Commonly known as: Folvite Take 1 (one) tablet by mouth once daily Free[facility] 1 SENSOR AND WEAR FOR 14 DAYS TO CHECK BLOOD SUGAR gabapentin 300 MG capsule Commonly known as: Neurontin Take 1 (one) capsule by mouth 3 times daily methotrexate 2.5 MG tablet Take 6 (six) tablets by mouth every 7 days (once a week) Take 3 tablets in the morning and 3 tablets in the evening Multivitamin Womens 50+ Adv Tabs Take 1 tablet by mouth once daily naloxone HCl 4 MG/0.1ML nasal spray Commonly known as: Narcan ondansetron (disintegrating) 4 MG tablet Commonly known as: Zofran ODT Quantity Dispensed: 15 tablet Take 1 (one) tablet by mouth every 6 hours as needed for Nausea/Vomiting Allow tablet to dissolve on the tongue Yasmin Matthew, DO ONETOUCH DELICA PLUS 33G EXTRA FINE LANCET USE FOUR TIMES DAILY OneTouch Ultra test strip Generic drug: blood glucose 4 times daily oxyBUTYnin CR 24hr 15 MG tablet Commonly known as: Ditropan XL Quantity Dispensed: 90 tablet Take 1 (one) tablet by mouth once daily LINDA Lincoln pantoprazole EC 40 MG tablet Commonly known as: Protonix Take 1 (one) tablet by mouth once daily polyethylene glycol 3350 17 g packet Commonly known as: Miralax Take 17 (seventeen) g by mouth once daily Mike Bhandari MD rivaroxaban 20 MG tablet Commonly known as: Xarelto Take 1 (one) tablet by mouth daily with breakfast Reasons: Blockage of Blood Vessel to Lung by a Particle, Blood Clot in a Deep Vein rOPINIRole 5 MG tablet Commonly known as: Requip TAKE 1 TABLET BY MOUTH EVERY NIGHT valsartan 80 MG tablet Commonly known as: Diovan Quantity Dispensed: 30 tablet Take 1 (one) tablet by mouth once daily Mike Bhandari MD STOP taking these medications oxyCODONE-acetaminophen 10-325 MG tablet Commonly known as: Percocet ALLERGIES: Allergies[1] DISCHARGE INSTRUCTIONS Referral to Home Connections Follow up Instructions Please continue to wear your home cpap/bipap during times of sleepiness, unless otherwise instructed. Some medications that you may have been prescribed or were used during a procedure may increase the chance of sleep apnea complications. Why you were hospitalized Your discharge diagnosis is: Acute heart failure with preserved ejection fraction (HFpEF) ([facility]) [[id number]] Your discharge diagnosis is: Steroid-induced hyperglycemia [[id number]] Daily weights -- Immediately upon admission, obtain baseline weight and write on log. -- Weigh patient daily, in similar clothing, after urinating and before breakfast. -- Call attending provider if patient has a weight gain of more than 2-3 pounds in one day or 4-5 pounds in 5 days. Follow up with Primary Care Provider (PCP) Our records show your Primary Care Provider (PCP) is Justen Gale MD. Follow Up Instructions for Patient: Within 5 Days from Discharge Follow up with provider Follow Up Instructions for Patient: Within 5-10 Days from Discharge Follow up with provider Follow Up Instructions for Patient: Within 5-10 Days from Discharge ISOLATION PRECAUTIONS No active isolations. Isolation due to No active infections. I spent 50 minutes in addition to direct patient care summarizing this patient's hospital stay, reviewing and updating the inpatient problem list, reviewing discharge medications, instructions, discussing discharge care planand discharge follow up labs/studies/doctor visits with the patient and or POA/family. Darvin Parekh MD [1] Allergies Allergen Reactions Latex Rash Ceftriaxone Anaphylaxis and Shortness of Breath R Cephalosporins Anaphylaxis and Shortness of Breath Trazodone Anaphylaxis and Other Shaky, restlessness, itching, throat swelling Contrast-Iodinated Agents For Ct/Other Rash Levofloxacin Urticaria and Skin Reactions Macrobid [Nitrofurantoin] Rash Lisinopril Swelling Ketorolac Itching Pregabalin Other Adhesive Sensitivity Rash Amlodipine Base Swelling Leg swelling Leg swelling Piperacillin-Tazobactam In D5w Rash Spironolactone Nausea and/or Vomiting, Fever and Headache Pt states she doesn't want to take this medication anymore Bactrim [Sulfamethoxazole W-Trimethoprim] Vomiting Reslizumab Unknown Skin Adhesives Skin Reactions documented in this encounter Medications at Time of Discharge acetaminophen (Tylenol) 500 MG tablet Take 1 (one) tablet by mouth every 4 hours as needed Maximum allowable Acetaminophen amount = 4 Grams (4000 mg) / 24 hours. 01/06/2025 albuterol HFA (Proventil; Ventolin; Proair) 108 (90 Base) MCG/ACT inhaler Inhale 2 (two) puffs by mouth every 6 hours as needed aspirin (Aspirin) 81 MG chew tablet Take 1 (one) tablet by mouth once daily (chew and swallow) 30 tablet 2 01/07/2025 atorvastatin (Lipitor) 40 MG tablet Take 1 (one) tablet by mouth at bedtime 30 tablet 2 01/06/2025 Continuous Blood Gluc Sensor (Intr[employer] Medical Imagingyle Eileen 2 Sensor Systm) [facility] APPLY 1 SENSOR AND WEAR FOR 14 DAYS TO CHECK BLOOD SUGAR 07/11/2023 diclofenac sodium (Voltaren) 1 % gel Apply 2 (two) g to affected area 4 times daily 01/06/2025 diphenhydrAMINE (Benadryl) 25 MG capsule Take 1 (one) capsule by mouth every 6 hours as needed for Itching 01/06/2025 empagliflozin (Jardiance) 10 MG tablet Take 1 (one) tablet by mouth once daily 30 tablet 2 01/07/2025 exemestane (AROMASIN) 25 MG tablet Take 1 (one) tablet by mouth DAILY 04/20/2017 folic acid (Folvite) 1 MG tablet Take 1 (one) tablet by mouth once daily furosemide (Lasix) 40 MG tablet Take 1 (one) tablet by mouth 2 times daily 30 tablet 02/02/2025 gabapentin (Neurontin) 300 MG capsule Take 1 (one) capsule by mouth 3 times daily 06/20/2023 HumaLOG KwikPen 100 UNIT/ML pen Inject 6 (six) Units subcutaneously 3 times daily before meals 3 mL 2 01/06/2025 insulin glargine (Lantus SoloStar) pen Inject 20 (twenty) Units subcutaneously once daily 15 mL 2 01/07/2025 insulin pen needle (B-D ULTRAFINE III SHORT PEN) 31G X 8 MM needle 4 times daily 300 Each 11/16/2021 Lancets (ONETOUCH DELICA PLUS 33G EXTRA FINE LANCET) USE FOUR TIMES DAILY 03/10/2021 methotrexate 2.5 MG tablet Take 6 (six) tablets by mouth every 7 days (once a week) Take 3 tablets in the morning and 3 tablets in the evening Multiple Vitamins-Minera ls (Multivitamin Womens 50+ Adv) TABS Take 1 tablet by mouth once daily naloxone HCl (Narcan) 4 MG/0.1ML nasal spray 07/11/2023 ondansetron, disintegrating, (Zofran ODT) 4 MG tablet Take 1 (one) tablet by mouth every 6 hours as needed for Nausea/Vomiting Allow tablet to dissolve on the tongue 15 tablet 08/09/2024 Blackstrap ULTRA test strip 4 times daily 02/01/2021 oxyBUTYnin CR 24hr (Ditropan XL) 15 MG tablet Take 1 (one) tablet by mouth once daily 90 tablet 4 03/08/2024 pantoprazole EC (Protonix) 40 MG tablet Take 1 (one) tablet by mouth once daily polyethylene glycol 3350 (Miralax) 17 g packet Take 17 (seventeen) g by mouth once daily 01/07/2025 predniSONE (Deltasone) 10 MG tablet Take 2 (two) tablets by mouth daily with breakfast 02/02/2025 rivaroxaban (Xarelto) 20 MG tabletIndicatio ns:Deep Vein Thrombosis,Pulm onary Embolism Take 1 (one) tablet by mouth daily with breakfast Reasons: Blockage of Blood Vessel to Lung by a Particle, Blood Clot in a Deep Vein rOPINIRole (REQUIP) 5 MG tablet TAKE 1 TABLET BY MOUTH EVERY NIGHT 06/09/2021 valsartan (Diovan) 80 MG tablet Take 1 (one) tablet by mouth once daily 30 tablet 2 01/06/2025 documented as of this encounter Progress Notes * Opal Graham RN - 02/02/2025 2:28 PM CDT Care Coordination Progress Note Expected Discharge Date: 02/02/2025 Discharge Plan: home with home connections Future Appointments Tuesday February 04, 2025 2:00 PM Appointment with Xavier Coronado at [facility] ([phone]) [address] [place] [address] [address] [place] [address] Family Support (Name and Phone): Extended Emergency Contact Information Primary Emergency Contact: Jimmie Marques Address: [address] [place] [address] [place] [address] Relation: Spouse Secondary Emergency Contact: Yunior Velez Mobile Relation: Daughter Transportation at Discharge: Family: READMISSION RISK SCORE is 18.3 Name: Opal Graham RN [phone] * Xavier Coronado MD - 02/02/2025 11:32 AM CDT Images from the original note were not included. [facility] Inpatient Cardiology Consult Follow-up Note Name: Karly Marques, [id number] Age: [age] year old Room: 405/02 Date Admitted: 01/30/2025 LOS: 2 Hospital Course: Karly Marques is a 69 yo female with HFpEF - EF 57% on echo 11/2024 Breast cancer status post bilateral mastectomy Fibromyalgia DVT/PE on Xarelto GERD LUL on CPAP Type 2 with diabetes mellitus Chronic back pain on neurostimulator Admitted to the hospital with CRIS, shortness of breath, fatigue. Since last admission she has been on methotrexate and steroids and had significant improvement from her fibromyalgia. However, she hashad increase in fluid retention with associated shortness of breath. Labs showed normal NT pro BNP level. CXR does demonstrate evidence of pulmonary vascular congestion. Interval History: Patient Vitals for the past 24 hrs: Temp Pulse Resp BP SpO2 O2 % (FiO2) 02/02/25 0740 97.8 ??F (36.6 ??C) 83 15 138/88 95 % -- 02/02/25 0328 97.2 ??F (36.2 ??C) 79 20 121/79 93 % -- 02/02/25 0052 -- 72 -- -- 95 % 21 % 02/01/25 2331 98.2 ??F (36.8 ??C) 71 17 117/79 94 % -- 02/01/252006 -- 80 -- -- 95 % 21 % 02/01/25 1927 97.5 ??F (36.4 ??C) 77 19 119/79 93 % -- 02/01/25 1540 97.9 ??F (36.6 ??C) 83 18 110/69 95 % -- 02/01/25 1218 98.5 ??F (36.9 ??C) 76 18 110/72 95 % -- IO last 3 completed shifts In: 1100 (8.8 mL/kg) [P.O.:1100] Out: 4001 (32.1 mL/kg) [Urine:4000 (0.9 mL/kg/hr); Stool:1] Net: -2901 Weight: 124.7 kg Net IO Since Admission: -7,756 mL [02/02/25 1132] The patient is almost at her baseline, and ready to go home. She has made really good amount of urine for the past 24 hours. Labs show creatinine 1.1, potassium 3.5, magnesium 2.2. Assessment/Recommendations: Acute on chronic HFpEF - aha C, NYHA 3, volume up Switch to Lasix oral 40 mg b.i.d. and continue on discharge. Okay to discharge from Cardiology standpoint she has a follow-up with me on the . Daily I/O, weights, kidney function. Keep K>4, Mg>2. 2. Underlying polymyositis versus PMR - reason for chronic steroid prescription Per primary team 3. Essential hypertension BP controlled on current regimen. Past Medical/Surgical History: Past Medical History[1] Past Surgical History[2] Family History: Family History[3] Social History: Social History[4] Review of Systems: Negative unless otherwise stated in HPI. Home Medications: Medications[5] Inpatient Medications: MEDICATIONS FOR CURRENT ENCOUNTER: SCHEDULED MEDICATIONS: 0.9% NaCl injection 3 mL, Intracatheter, q8h aspirin chew tablet 81 mg, Oral, QDAY atorvastatin (Lipitor) tablet 40 mg, Oral, AT BEDTIME diclofenac sodium (Voltaren) 1 % gel 2 g, Topical, 4X/day empagliflozin (Jardiance) tablet 10 mg, Oral, QDAY insulin aspart (NovoLOG) pen 0-12 Units, Subcutaneous, TID WC insulin aspart (NovoLOG) pen 0-7 Units, Subcutaneous, AT BEDTIME insulin aspart (NovoLOG) pen 6 Units, Subcutaneous, TID WC insulin glargine (Lantus) pen 26 Units, Subcutaneous, QDAY lidocaine (Lidoderm) 5 % patch 1 patch, Transdermal, AT BEDTIME nystatin (Mycostatin) suspension 5 mL, Swish and Swallow, 4X/day predniSONE (Deltasone) tablet 20 mg, Oral, QDAY WITH BREAKFAST rivaroxaban (Xarelto) tablet 20 mg, Oral, QDAY WITH BREAKFAST rOPINIRole (Requip) tablet 5 mg, Oral, AT BEDTIME valsartan (Diovan) tablet 80 mg, Oral, QDAY [COMPLETED] furosemide (Lasix) injection 40 mg, Intravenous, BID CONTINUOUS MEDICATIONS: PRN MEDICATIONS: Or Or Or 0.9% NaCl injection 1-10 mL, Intracatheter, PRN acetaminophen (Tylenol) tablet 500 mg, Oral, q8h PRN albuterol HFA (Proventil; Ventolin; Proair) 108 (90 Base) MCG/ACT inhaler 2 puff, Inhalation, q6h PRN benzonatate (Tessalon) capsule 100 mg, Oral, TID PRN dextrose IV 12.5 g, Intravenous, PRN dextrose IV 25 g, Intravenous, PRN diphenhydrAMINE (Benadryl) capsule 50 mg, Oral, AT BEDTIME PRN glucagon (Glucagen) injection 1 mg, Subcutaneous, PRN glucose (Diabetic Use) oral gel, Oral, PRN hydrOXYzine HCl (Atarax) tablet 50 mg, Oral, TID PRN melatonin tablet 3 mg, Oral, AT BEDTIME PRN - MR X 1 ondansetron (disintegrating) (Zofran ODT) tablet 4 mg, Oral, q6h PRN ondansetron (Zofran) injection 4 mg, Intravenous, q6h PRN oxyCODONE-acetaminophen (Percocet) 10-325 MG tablet 1 tablet, Oral, q4h PRN throat lozenge 1 lozenge, Oral, q2h PRN Allergies: Allergies[6] OBJECTIVE: Vitals: 02/01/25 2331 02/02/25 0052 02/02/25 0328 02/02/25 0740 BP: 117/79 121/79 138/88 Pulse: 71 72 79 83 Resp: 17 20 15 Temp: 98.2 ??F (36.8 ??C) 97.2 ??F (36.2 ??C) 97.8 ??F (36.6 ??C) SpO2: 94% 95% 93% 95% Weight: 124.7 kg (275 lb) Height: Body mass index is 51.96 kg/m??. PHYSICAL EXAM: General: Alert and Oriented to person, place, time and situation, no acute distress HEENT: PERRL. non-icteric sclera, clear conjunctiva, EOMI Neck: No LAD, no JVD or cartoid bruit. Trachea midline. Heart: RRR, Normal S1 and S2. No murmurs appreciated. Chest: Normal breath sounds, no wheezes or rhonchi Abdomen: Soft, Non-tender, Non-distended Extremities: 1+ lower extremity edema, 2+ DP/PT, and Rad Pulses b/l, Normal ROM LABS: Lab Results: Recent Labs Component Name 01/30/25 0120 04/17/23205803/24/238 02/17/23 1838 02/06/23 1331 WBC 13.4* - 10.3 - 8.9 RBC 4.52 - 4.66 - 5.05 HGB 12.7 - 13.6 - 14.6 HCT 41.2 - 42.4 - 45.5 MCV 91.2 - 91.0 - 90.1 MCH 28.1 - 29.2 - 28.9 MCHC 30.8* - 32.1 - 32.1 RDW - - 13.2 - - PLTCOUNT 258 - 279 - 264 LYMPHPCT 19.2 - - - 27.2 BASOPHILPCT - - - - 0.4 - = values in this interval not displayed. Recent Labs Component Name 01/30/25 0120 01/03/25 0231 01/02/25 1216 WBC 13.4* 12.2* 11.5* HGB 12.7 11.3* 12.3 HCT 41.2 35.5 39.1 PLTCOUNT 258 249 270 Recent Labs Component Name 02/02/25 0823 02/01/25 1132 01/31/25 1047 SODIUM 137 133* 136 POTASSIUM 3.5 4.6 3.9 CHLORIDE 94* 96* 97* CO2 30* 23 29 BUN 48* 43* 34* CREATININE 1.10 0.97 0.89 GLUCOSE 224* 296* 244* CALCIUM 10.0 10.2 10.0 Recent Labs Component Name 07/26/23 2226 02/21/23 1830 02/17/23 1838 02/16/23 1220 02/06/23 1330 11/13/21 0107 11/12/21 1823 INR 1.1 1.0 1.0 - 2.5* 1.2 - PT 14.2 13.2 12.7 - 25.7* 15.2* - PTT - - - - 35.4 77.2* 70.9* - = values in this interval not displayed. Recent Labs Component Name 01/30/25 0150 01/02/25 1216 08/09/24 1340 ALBUMIN 3.7 3.8 3.3* ALKPHOS 76 70 68 ALT 27 23 22 AST 24 22 23 TBIL 0.6 0.8 0.9 TPROT 7.7 7.7 8.0 Recent Labs Component Name 01/30/25 0150 TSH 1.984 No results for input(s): CKMB, TROPONIN, MYOGLOBIN in the last 30933 hours. No results for input(s): PHART, ZPH5MLS, PO2ART, H6FZKBFV, DDF6ANE, BEART, FIO2 in the last 29255 hours. Recent Labs Component Name 01/31/25 0307 CHOL 176 HDL 60 TRIG 114 LDLCALC 93 ECG 01/30/2025: ECHO 12/03/2024: FINDINGS: Left Ventricle: Normal left ventricular size [...] root. IVC: IVC Collapses normally with inspiration. STRESS 12/2024: SUMMARY: 1. Normal myocardial perfusion study without evidence of ischemia. 2. Gated SPECT images demonstrate normal LV systolic function. Thank you for allowing us to participate in this patient's care. Please don't hesitate to call us with any further questions. Thank you for allowing us to participate in this patient's care. Please don't hesitate to call us with any further questions. Bill Coronado MD Interventional Cardiology [facility] 02/02/2025 11:32 AM [1] Past Medical History: Diagnosis Date Breast cancer (HCC) Chest pain DVT (deep venous thrombosis) (HCC) GERD (gastroesophageal reflux disease) LUL (obstructive sleep apnea) w cpap Other pulmonary embolism without acute cor pulmonale (HCC) rls Type 2 diabetes mellitus without complications (HCC) [2] Past Surgical History: Procedure Laterality Date Arthroplasty [...] THE BATTERY IN THE LOWER LUMBAR REGION [3] Family History Problem Relation Name Age of Onset Heart Disease Mother Diabetes Mother Cancer Father Hemochromatosis Father Cancer Sister Heart Disease Brother [4] Social History Tobacco Use Smoking status: Former Current packs/day: 0.00 Types: Cigarettes Quit date: 12/05/1977 Years since quittin.1 Smokeless tobacco: Never Vaping Use Vaping status: Never Used Substance Use Topics Alcohol use: Never Drug use: No [5] acetaminophen (Tylenol) 500 MG tablet albuterol HFA (Proventil; Ventolin; Proair) 108 (90 Base) MCG/ACT inhaler aspirin (Aspirin) 81 MG chew tablet atorvastatin (Lipitor) 40 MG tablet Continuous Blood Gluc Sensor (FreeStyle Eileen 2 Sensor Systm) MISC diclofenac sodium (Voltaren) 1 % gel diphenhydrAMINE (Benadryl) 25 MG capsule empagliflozin (Jardiance) 10 MG tablet exemestane (AROMASIN) 25 MG tablet folic acid (Folvite) 1 MG tablet furosemide (Lasix) 20 MG tablet gabapentin (Neurontin) 300 MG capsule HumaLOG KwikPen 100 UNIT/ML pen insulin glargine (Lantus SoloStar) pen insulin pen needle (B-D ULTRAFINE III SHORT PEN) 31G X 8 MM needle Lancets ([employer] DELICA PLUS 33G EXTRA FINE LANCET) methotrexate 2.5 MG tablet Multiple Vitamins-Minerals (Multivitamin Womens 50+ Adv) TABS naloxone HCl (Narcan) 4 MG/0.1ML nasal spray ondansetron, disintegrating, (Zofran ODT) 4 MG tablet ONETOUCH ULTRA test strip oxyBUTYnin CR 24hr (Ditropan XL) 15 MG tablet oxyCODONE-acetaminophen (Percocet) 10-325 MG tablet pantoprazole EC (Protonix) 40 MG tablet polyethylene glycol 3350 (Miralax) 17 g packet predniSONE (Deltasone) 10 MG tablet rivaroxaban (Xarelto) 20 MG tablet rOPINIRole (REQUIP) 5 MG tablet valsartan (Diovan) 80 MG tablet [6] Allergies Allergen Reactions Latex Rash Ceftriaxone Anaphylaxis and Shortness of Breath R Cephalosporins Anaphylaxis and Shortness of Breath Trazodone Anaphylaxis and Other Shaky, restlessness, itching, throat swelling Contrast-Iodinated Agents For Ct/Other Rash Levofloxacin Urticaria and Skin Reactions Macrobid [Nitrofurantoin] Rash Lisinopril Swelling Ketorolac Itching Pregabalin Other Adhesive Sensitivity Rash Amlodipine Base Swelling Leg swelling Leg swelling Piperacillin-Tazobactam In D5w Rash Spironolactone Nausea and/or Vomiting, Fever and Headache Pt states she doesn't want to take this medication anymore Bactrim [Sulfamethoxazole W-Trimethoprim] Vomiting Reslizumab Unknown Skin Adhesives Skin Reactions * Yana Jones RRT - 02/01/2025 8:10 PM CDT was placed on a resmed with a CPAP of 12 at 20:07 for nocturnal support. Patient restingcomfortably with stable vitals on resmed. RT will continue to monitor patient. . Yana Jones RRT 02/01/2025 8:12 PM * Xavier Coronado MD - 02/01/2025 10:59 AM CDT Images from the original note were not included. [facility] Inpatient Cardiology Consult Follow-up Note Name: Karly Marques, [id number] Age: [age] year old Room: 405/02 Date Admitted: 01/30/2025 LOS: 1 Hospital Course: Karly Marques is a 69 yo female with HFpEF - EF 57% on echo 11/2024 Breast cancer status post bilateral mastectomy Fibromyalgia DVT/PE on Xarelto GERD LUL on CPAP Type 2 with diabetes mellitus Chronic back pain on neurostimulator Admitted to the hospital with CRIS, shortness of breath, fatigue. Since last admission she has been on methotrexate and steroids and had significant improvement from her fibromyalgia. However, she hashad increase in fluid retention with associated shortness of breath. Labs showed normal NT pro BNP level. CXR does demonstrate evidence of pulmonary vascular congestion. Interval History: Patient Vitals for the past 24 hrs: Temp Pulse Resp BP SpO2 02/01/25 0746 97.9 ??F (36.6 ??C) 86 25 141/84 96 % 02/01/25 0445 97.6 ??F (36.4 ??C) 76 13 116/73 96 % 01/31/25 2343 97.7 ??F (36.5 ??C) 78 13 130/79 99 % 01/31/25 1920 98.8 ??F (37.1 ??C) 93 18 122/84 -- 01/31/25 1531 99.5 ??F (37.5 ??C) 77 12 107/66 -- 01/31/25 1159 99.4 ??F (37.4 ??C) 86 16 135/84 95 % IO last 3 completed shifts In: 1960 (16.5 mL/kg) [P.O.:1960] Out: 6601 (55.4 mL/kg) [Urine:6600 (1.5 mL/kg/hr); Stool:1] Net: -4641 Weight: 119.1 kg Net IO Since Admission: -6,696 mL [02/01/25 1059] The patient feels so much better today and she still is losing weight and making very good amount of urine. No labs today. Assessment/Recommendations: Acute on chronic HFpEF - aha C, NYHA 3, volume up Continue lasix 40mg BID today, and reassess tomorrow, possibly switching to oral. Daily I/O, weights, kidney function. Keep K>4, Mg>2. 2. Underlying polymyositis versus PMR - reason for chronic steroid prescription Per primary team 3. Essential hypertension BP controlled on current regimen. Past Medical/Surgical History: Past Medical History[1] Past Surgical History[2] Family History: Family History[3] Social History: Social History[4] Review of Systems: Negative unless otherwise stated in HPI. Home Medications: Medications[5] Inpatient Medications: MEDICATIONS FOR CURRENT ENCOUNTER: SCHEDULED MEDICATIONS: 0.9% NaCl injection 3 mL, Intracatheter, q8h 0.9% NaCl injection 3 mL, Intracatheter, q8h aspirin chew tablet 81 mg, Oral, QDAY atorvastatin (Lipitor) tablet 40 mg, Oral, AT BEDTIME diclofenac sodium (Voltaren) 1 % gel 2 g, Topical, 4X/day empagliflozin (Jardiance) tablet 10 mg, Oral, QDAY furosemide (Lasix) injection 40 mg, Intravenous, BID insulin aspart (NovoLOG) pen 0-12 Units, Subcutaneous, TID WC insulin aspart (NovoLOG) pen 0-7 Units, Subcutaneous, AT BEDTIME insulin aspart (NovoLOG) pen 6 Units, Subcutaneous, TID WC insulin glargine (Lantus) pen 26 Units, Subcutaneous, QDAY nystatin (Mycostatin) suspension 5 mL, Swish and Swallow, 4X/day predniSONE (Deltasone) tablet 20 mg, Oral, QDAY WITH BREAKFAST rivaroxaban (Xarelto) tablet 20 mg, Oral, QDAY WITH BREAKFAST rOPINIRole (Requip) tablet 5 mg, Oral, AT BEDTIME valsartan (Diovan) tablet 80 mg, Oral, QDAY [COMPLETED] furosemide (Lasix) injection 40 mg, Intravenous, BID CONTINUOUS MEDICATIONS: PRN MEDICATIONS: Or Or Or 0.9% NaCl injection 1-10 mL, Intracatheter, PRN 0.9% NaCl injection 1-10 mL, Intracatheter, PRN acetaminophen (Tylenol) tablet 500 mg, Oral, q8h PRN albuterol HFA (Proventil; Ventolin; Proair) 108 (90 Base) MCG/ACT inhaler 2 puff, Inhalation, q6h PRN benzonatate (Tessalon) capsule 100 mg, Oral, TID PRN dextrose IV 12.5 g, Intravenous, PRN dextrose IV 25 g, Intravenous, PRN diphenhydrAMINE (Benadryl) capsule 50 mg, Oral, AT BEDTIME PRN glucagon (Glucagen) injection 1 mg, Subcutaneous, PRN glucose (Diabetic Use) oral gel, Oral, PRN melatonin tablet 3 mg, Oral, AT BEDTIME PRN - MR X 1 ondansetron (disintegrating) (Zofran ODT) tablet 4 mg, Oral, q6h PRN ondansetron (Zofran) injection 4 mg, Intravenous, q6h PRN oxyCODONE-acetaminophen (Percocet) 10-325 MG tablet 1 tablet, Oral, q4h PRN throat lozenge 1 lozenge, Oral, q2h PRN Allergies: Allergies[6] OBJECTIVE: Vitals: 01/31/25 1920 01/31/25 2343 02/01/25 0445 02/01/25 0746 BP: 122/84 130/79 116/73 141/84 Pulse: 93 78 76 86 Resp: 18 25 Temp: 98.8 ??F (37.1 ??C) 97.7 ??F (36.5 ??C) 97.6 ??F (36.4 ??C) 97.9 ??F (36.6 ??C) SpO2: 99% 96% 96% Weight: Height: Body mass index is 49.62 kg/m??. PHYSICAL EXAM: General: Alert and Oriented to person, place, time and situation, no acute distress HEENT: PERRL. non-icteric sclera, clear conjunctiva, EOMI Neck: No LAD, no JVD or cartoid bruit. Trachea midline. Heart: RRR, Normal S1 and S2. No murmurs appreciated. Chest: Normal breath sounds, no wheezes or rhonchi Abdomen: Soft, Non-tender, Non-distended Extremities: 1+ lower extremity edema, 2+ DP/PT, and Rad Pulses b/l, Normal ROM LABS: Lab Results: Recent Labs Component Name 01/30/25 0120 04/17/23205803/24/23 2338 02/17/23 1838 02/06/23 1331 WBC 13.4* - 10.3 - 8.9 RBC 4.52 - 4.66 - 5.05 HGB 12.7 - 13.6 - 14.6 HCT 41.2 - 42.4 - 45.5 MCV 91.2 - 91.0 - 90.1 MCH 28.1 - 29.2 - 28.9 MCHC 30.8* - 32.1 - 32.1 RDW - - 13.2 - - PLTCOUNT 258 - 279 - 264 LYMPHPCT 19.2 - - - 27.2 BASOPHILPCT - - - - 0.4 - = values in this interval not displayed. Recent Labs Component Name 01/30/25 0120 01/03/25 0231 01/02/25 1216 WBC 13.4* 12.2* 11.5* HGB 12.7 11.3* 12.3 HCT 41.2 35.5 39.1 PLTCOUNT 258 249 270 Recent Labs Component Name 01/31/25 1047 01/30/25 0150 01/06/25 0202 SODIUM 136 140 137 POTASSIUM 3.9 4.2 4.1 CHLORIDE 97* 104 101 CO2 29 25 28 BUN 34* 23 30* CREATININE 0.89 1.03 1.02 GLUCOSE 244* 359* 161* CALCIUM 10.0 9.5 9.7 Recent Labs Component Name 07/26/23 2226 02/21/23 1830 02/17/23 1838 02/16/23 1220 02/06/23 1330 11/13/21 0107 11/12/21 1823 INR 1.1 1.0 1.0 - 2.5* 1.2 - PT 14.2 13.2 12.7 - 25.7* 15.2* - PTT - - - - 35.4 77.2* 70.9* - = values in this interval not displayed. Recent Labs Component Name 01/30/25 0150 01/02/25 1216 08/09/24 1340 ALBUMIN 3.7 3.8 3.3* ALKPHOS 76 70 68 ALT 27 23 22 AST 24 22 23 TBIL 0.6 0.8 0.9 TPROT 7.7 7.7 8.0 Recent Labs Component Name 01/30/25 0150 TSH 1.984 No results for input(s): CKMB, TROPONIN, MYOGLOBIN in the last 09226 hours. No results for input(s): PHART, NXP8GWY, PO2ART, A3GUAPII, VDM1VVK, BEART, FIO2 in the last 18466 hours. Recent Labs Component Name 01/31/25 0307 CHOL 176 HDL 60 TRIG 114 LDLCALC 93 ECG 01/30/2025: ECHO 12/03/2024: FINDINGS: Left Ventricle: Normal left ventricular size [...] root. IVC: IVC Collapses normally with inspiration. STRESS 12/2024: SUMMARY: 1. Normal myocardial perfusion study without evidence of ischemia. 2. Gated SPECT images demonstrate normal LV systolic function. Thank you for allowing us to participate in this patient's care. Please don't hesitate to call us with any further questions. Thank you for allowing us to participate in this patient's care. Please don't hesitate to call us with any further questions. Bill Coronado MD Interventional Cardiology [facility] 02/01/2025 10:59 AM [1] Past Medical History: Diagnosis Date Breast cancer (HCC) Chest pain DVT (deep venous thrombosis) (HCC) GERD (gastroesophageal reflux disease) LUL (obstructive sleep apnea) w cpap Other pulmonary embolism without acute cor pulmonale (HCC) rls Type 2 diabetes mellitus without complications (HCC) [2] Past Surgical History: Procedure Laterality Date Arthroplasty [...] THE BATTERY IN THE LOWER LUMBAR REGION [3] Family History Problem Relation Name Age of Onset Heart Disease Mother Diabetes Mother Cancer Father Hemochromatosis Father Cancer Sister Heart Disease Brother [4] Social History Tobacco Use Smoking status: Former Current packs/day: 0.00 Types: Cigarettes Quit date: 12/05/1977 Years since quittin.1 Smokeless tobacco: Never Vaping Use Vaping status: Never Used Substance Use Topics Alcohol use: No Drug use: No [5] acetaminophen (Tylenol) 500 MG tablet albuterol HFA (Proventil; Ventolin; Proair) 108 (90 Base) MCG/ACT inhaler aspirin (Aspirin) 81 MG chew tablet atorvastatin (Lipitor) 40 MG tablet Continuous Blood Gluc Sensor (FreeStyle Eileen 2 Sensor Systm) MISC diclofenac sodium (Voltaren) 1 % gel diphenhydrAMINE (Benadryl) 25 MG capsule empagliflozin (Jardiance) 10 MG tablet exemestane (AROMASIN) 25 MG tablet folic acid (Folvite) 1 MG tablet furosemide (Lasix) 20 MG tablet gabapentin (Neurontin) 300 MG capsule HumaLOG KwikPen 100 UNIT/ML pen insulin glargine (Lantus SoloStar) pen insulin pen needle (B-D ULTRAFINE III SHORT PEN) 31G X 8 MM needle Lancets (ONETOUCH DELICA PLUS 33G EXTRA FINE LANCET) methotrexate 2.5 MG tablet Multiple Vitamins-Minerals (Multivitamin Womens 50+ Adv) TABS naloxone HCl (Narcan) 4 MG/0.1ML nasal spray ondansetron, disintegrating, (Zofran ODT) 4 MG tablet ONETOUCH ULTRA test strip oxyBUTYnin CR 24hr (Ditropan XL) 15 MG tablet oxyCODONE-acetaminophen (Percocet) 10-325 MG tablet pantoprazole EC (Protonix) 40 MG tablet polyethylene glycol 3350 (Miralax) 17 g packet predniSONE (Deltasone) 10 MG tablet rivaroxaban (Xarelto) 20 MG tablet rOPINIRole (REQUIP) 5 MG tablet valsartan (Diovan) 80 MG tablet [6] Allergies Allergen Reactions Latex Rash Ceftriaxone Anaphylaxis and Shortness of Breath R Cephalosporins Anaphylaxis and Shortness of Breath Trazodone Anaphylaxis and Other Shaky, restlessness, itching, throat swelling Contrast-Iodinated Agents For Ct/Other Rash Levofloxacin Urticaria and Skin Reactions Macrobid [Nitrofurantoin] Rash Lisinopril Swelling Ketorolac Itching Pregabalin Other Adhesive Sensitivity Rash Amlodipine Base Swelling Leg swelling Leg swelling Piperacillin-Tazobactam In D5w Rash Spironolactone Nausea and/or Vomiting, Fever and Headache Pt states she doesn't want to take this medication anymore Bactrim [Sulfamethoxazole W-Trimethoprim] Vomiting Reslizumab Unknown Skin Adhesives Skin Reactions * Darvin Parekh MD - 02/01/2025 8:15 AM CDT [facility] Medicine Progress Note [facility] Patient: Karly Marques Interval Update Subjective improvement in swelling in the face on lower extremity, patient has improvement in dyspnea. She has an excellent urine output, continues to experience relief with Lasix. Although does report occasional shakiness, feeling unwell in the evenings, again could be side effects of steroids. Hospital Course Karly Marques is a 69-year-old female with past medical history of obesity, HFpEF, PMR on oral steroids and methotrexate, stage II breast cancer on exemestane, who presented to the hospital with generalized fatigue, lower extremity and facial swelling. Was started on IV Lasix for suspected CHF exa cerbation, symptoms likely concurrent with worsening side-effects from chronic steroid use. Cardiology consulted, patient continued on IV Lasix. Objective Temp: [97.2 ??F (36.2 ??C)-98.5 ??F (36.9 ??C)] 97.8 ??F (36.6 ??C) Pulse: [71-83] 83 Resp: [15-20] 15 BP: (110-138)/(69-88) 138/88 O2 %: [21 %] 21 % Weight change: Intake/Output Summary (Last 24 hours) at 02/02/2025 0815 Last data filed at 02/01/2025 1542 Gross per 24 hour Intake 240 ml Output 1300 ml Net -1060 ml Physical Exam Constitutional: Appearance: Normal appearance. She is not [...] is no guarding. Musculoskeletal: Right lower leg: No edema. Left lower leg: No edema. Skin: Coloration: Skin is not jaundiced. Findings: No bruising or lesion. Neurological: General: No focal deficit present. Mental Status: She is alert and oriented to person, place, and time. Laboratory Data Recent Labs Component Name 01/30/25 0120 01/03/25 0231 01/02/25 1216 WBC 13.4* 12.2* 11.5* HGB 12.7 11.3* 12.3 HCT 41.2 35.5 39.1 PLTCOUNT 258 249 270 MCV 91.2 91.0 90.5 Recent Labs Component Name 07/26/23 2226 02/21/23 1830 02/17/23 1838 02/16/23 1220 02/06/23 1330 11/13/21 0107 11/12/21 1823 PT 14.2 13.2 12.7 - 25.7* 15.2* - INR 1.1 1.0 1.0 - 2.5* 1.2 - PTT - - - - 35.4 77.2* 70.9* - = values in this interval not displayed. Recent Labs Component Name 02/01/25 1132 01/31/25 1047 01/30/25 0150 08/09/24 1340 07/30/23 0128 07/26/23222506/16/23 0848 NA - - - - 136 141 135* POTASSIUM 4.6 3.9 4.2 - 4.4 3.9 3.7 CL - - - - 101 104 103 CO2 29 25 - 28 24 BUN 43* 34* 23 - 20 13 14 CREATININE 0.97 0.89 1.03 - 0.67 0.63 0.63 - = values in this interval not displayed. Recent Labs Component Name 02/01/25 1132 01/31/25 1047 01/30/25 0150 08/09/24 1340 07/30/23 0128 03/24/23 2338 03/22/23 1028 03/20/23 0355 CALCIUM 10.2 10.0 9.5 - 9.4 - 9.8 8.8 PHOS - - - - 3.0 - 3.3 2.9 - = values in this interval not displayed. Recent Labs Component Name 01/30/25 0150 01/02/25 1216 08/09/24 1340 07/30/23 0128 07/26/23222506/16/23 0848 04/17/23 2059 03/24/23 2338 PROT - - - - 7.5 8.9* - 8.5* ALB - - - 2.9* 3.1* 3.5 - 3.3* ALKPHOS 76 70 68 - 74 82 - 77 AST 24 22 23 - 17 17 - 23 ALT 27 23 22 - 19 18 - 17 TBILI - - - - 0.5 0.6 - 0.4 - = values in this interval not displayed. Recent Labs Component Name 11/11/21223711/05/21 1350 TROPONINI <0.010 <0.010 Recent Labs Component Name 02/22/23 0759 VANCTROUGH 14.6 Microbiology Results (Displays last 21 days for this encounter ONLY) Procedure Component Value - Date/Time STREP A SCREEN DIRECT W RFLX STREP A CULTURE [[id number]] (Normal) Collected: 01/30/25 1450 Lab Status: Final result Specimen: Microbiology from Throat Updated: 01/30/25 1517 Strep A Rapid Negative Narrative: Test has reflexed to a Strep A culture. CULTURE STREP GROUP A [[id number]] (Normal) Collected: 01/30/25 1450 Lab Status: Final result Specimen: Microbiology from Throat Updated: 01/31/25 2213 Culture Negative for beta-hemolytic Streptococcus Group A Imaging XR Chest 1Vw Portable Result Date: 01/30/2025 IMPRESSION: As above. > Interpreting Provider: Justen Lynch MD on 01/30/2025 8:29 AM Assessment and Plan The patient's active hospital problems include: Acute heart failure with preserved ejection fraction (HFpEF) (HCC) (POA: Yes) Chronic back pain (POA: Yes) Chronic anticoagulation (POA: Yes) Essential hypertension (POA: Yes) LUL (obstructive sleep apnea) (POA: Yes) Type 2 diabetes mellitus without complication (CMS/HCC) (POA: Yes) Weakness (POA: Yes) Breast cancer (HCC) (POA: Yes) Morbid obesity (HCC) (POA: Yes) Polymyositis (HCC) (POA: Yes) Edema, unspecified type (POA: Yes) SOB (shortness of breath) (POA: Yes) Sore throat (POA: Yes) Plan: Continue IV Lasix today, discussed with Cardiology, likely transitioned to p.o. tomorrow - continue prednisone home dose - continue aspirin and statin - continue Jardiance -continue up titrated insulin for steroid-induced hyperglycemia, type 2 diabetes mellitus, continueLantus 26, start NovoLog 6 units with meals, switch to medium dose sliding scale insulin - continue Xarelto - continue valsartan Diet: DIET CONS CARB CARDIAC DIETARY NUTRITION SUPPLEMENTS DVT Prophylaxis: Rivaroxaban Code Status: Full Code Disposition: Home Estimated Date of Discharge: 02/02/2025 Time spent: 35 minutes, including a total of face to face time, family discussion, reviewing nursing and retirement sales consultant notes, labs and imaging, discussing/coordinating care with the care team, and documentation. Darvin Parekh MD 02/02/2025 8:15 AM * Opal Graham RN - 01/31/2025 4:49 PM CDT Care Coordination Progress Note Expected Discharge Date: 01/31/2025 Discharge Plan: home with home connections. Discussed RPM with attending, declines need at this time Family Support (Name and Phone): Extended Emergency Contact Information Primary Emergency Contact: Jimmie Marques Address: [address] [place] [address] [place] [address] Relation: Spouse Secondary Emergency Contact: AgustinYunior Mobile Relation: Daughter Transportation at Discharge: Family: READMISSION RISK SCORE is 17.2 at 4:49 PM 01/31/2025.: Name: Opal Graham RN [phone] * Xavier Coronado MD - 01/31/2025 12:39 PM CDT Images from the original note were not included. [facility] Inpatient Cardiology Consult Follow-up Note Name: Karly Marques, [id number] Age: [age] year old Room: 405/02 Date Admitted: 01/30/2025 LOS: 0 Hospital Course: Karly Marques is a 69 yo female with HFpEF - EF 57% on echo 11/2024 Breast cancer status post bilateral mastectomy Fibromyalgia DVT/PE on Xarelto GERD LUL on CPAP Type 2 with diabetes mellitus Chronic back pain on neurostimulator Admitted to the hospital with CRIS, shortness of breath, fatigue. Since last admission she has been on methotrexate and steroids and had significant improvement from her fibromyalgia. However, she hashad increase in fluid retention with associated shortness of breath. Labs showed normal NT pro BNP level. CXR does demonstrate evidence of pulmonary vascular congestion. Interval History: Patient Vitals for the past 24 hrs: Temp Pulse Resp BP SpO2 01/31/25 1159 99.4 ??F (37.4 ??C) 86 16 135/84 95 % 01/31/25 0829 -- 75 -- -- 95 % 01/31/25 0748 98.7 ??F (37.1 ??C) 74 20 134/82 96 % 01/31/25 0429 98.8 ??F (37.1 ??C) 73 16 126/83 99 % 01/30/25 2312 98.6 ??F (37 ??C) 71 16 130/84 96 % 01/30/252023 98.4 ??F (36.9 ??C) 84 14 142/86 97 % 01/30/25 1839 -- 78 13 138/87 98 % 01/30/25 1509 98.7 ??F (37.1 ??C) 94 16 117/64 93 % IO last 3 completed shifts In: 600 (5 mL/kg) [P.O.:600] Out: 4375 (36.7 mL/kg) [Urine:4375 (1 mL/kg/hr)] Net: -3775 Weight: 119.1 kg Net IO Since Admission: -2,755 mL [01/31/25 1239] No new issues overnight. Feels much better and has lost weight. Creat stable. Assessment/Recommendations: Acute on chronic HFpEF - aha C, NYHA 3, volume up Continue lasix 40mg BID today, and reassess tomorrow. Daily I/O, weights, kidney function. Keep K>4, Mg>2. 2. Underlying polymyositis versus PMR - reason for chronic steroid prescription Per primary team 3. Essential hypertension BP controlled on current regimen. Past Medical/Surgical History: Past Medical History[1] Past Surgical History[2] Family History: Family History[3] Social History: Social History[4] Review of Systems: Negative unless otherwise stated in HPI. Home Medications: Medications[5] Inpatient Medications: MEDICATIONS FOR CURRENT ENCOUNTER: SCHEDULED MEDICATIONS: 0.9% NaCl injection 3 mL, Intracatheter, q8h 0.9% NaCl injection 3 mL, Intracatheter, q8h aspirin chew tablet 81 mg, Oral, QDAY atorvastatin (Lipitor) tablet 40 mg, Oral, AT BEDTIME diclofenac sodium (Voltaren) 1 % gel 2 g, Topical, 4X/day empagliflozin (Jardiance) tablet 10 mg, Oral, QDAY furosemide (Lasix) injection 40 mg, Intravenous, BID insulin aspart (NovoLOG) pen 0-18 Units, Subcutaneous, TID WC insulin aspart (NovoLOG) pen 0-7 Units, Subcutaneous, AT BEDTIME insulin glargine (Lantus) pen 26 Units, Subcutaneous, AT BEDTIME nystatin (Mycostatin) suspension 5 mL, Swish and Swallow, 4X/day predniSONE (Deltasone) tablet 20 mg, Oral, QDAY WITH BREAKFAST rivaroxaban (Xarelto) tablet 20 mg, Oral, QDAY WITH BREAKFAST rOPINIRole (Requip) tablet 5 mg, Oral, AT BEDTIME valsartan (Diovan) tablet 80 mg, Oral, QDAY [COMPLETED] furosemide (Lasix) injection 40 mg, Intravenous, BID CONTINUOUS MEDICATIONS: PRN MEDICATIONS: Or Or Or 0.9% NaCl injection 1-10 mL, Intracatheter, PRN 0.9% NaCl injection 1-10 mL, Intracatheter, PRN acetaminophen (Tylenol) tablet 500 mg, Oral, q8h PRN albuterol HFA (Proventil; Ventolin; Proair) 108 (90 Base) MCG/ACT inhaler 2 puff, Inhalation, q6h PRN benzonatate (Tessalon) capsule 100 mg, Oral, TID PRN dextrose IV 12.5 g, Intravenous, PRN dextrose IV 25 g, Intravenous, PRN diphenhydrAMINE (Benadryl) capsule 50 mg, Oral, AT BEDTIME PRN glucagon (Glucagen) injection 1 mg, Subcutaneous, PRN glucose (Diabetic Use) oral gel, Oral, PRN melatonin tablet 3 mg, Oral, AT BEDTIME PRN - MR X 1 ondansetron (disintegrating) (Zofran ODT) tablet 4 mg, Oral, q6h PRN ondansetron (Zofran) injection 4 mg, Intravenous, q6h PRN oxyCODONE-acetaminophen (Percocet) 10-325 MG tablet 1 tablet, Oral, q4h PRN throat lozenge 1 lozenge, Oral, q2h PRN Allergies: Allergies[6] OBJECTIVE: Vitals: 01/31/25 0547 01/31/25 0748 01/31/25 0829 01/31/25 1159 BP: 134/82 135/84 Pulse: 74 75 86 Resp: 20 16 Temp: 98.7 ??F (37.1 ??C) 99.4 ??F (37.4 ??C) SpO2: 96% 95% 95% Weight: 119.1 kg (262 lb 9.6 oz) Height: Body mass index is 49.62 kg/m??. PHYSICAL EXAM: General: Alert and Oriented to person, place, time and situation, no acute distress HEENT: PERRL. non-icteric sclera, clear conjunctiva, EOMI Neck: No LAD, no JVD or cartoid bruit. Trachea midline. Heart: RRR, Normal S1 and S2. No murmurs appreciated. Chest: Normal breath sounds, no wheezes or rhonchi Abdomen: Soft, Non-tender, Non-distended Extremities: 1+ lower extremity edema, 2+ DP/PT, and Rad Pulses b/l, Normal ROM LABS: Lab Results: Recent Labs Component Name 01/30/25 01204/17/23 2059 03/24/23 2338 02/17/23 1838 02/06/23 1331 WBC 13.4* - 10.3 - 8.9 RBC 4.52 - 4.66 - 5.05 HGB 12.7 - 13.6 - 14.6 HCT 41.2 - 42.4 - 45.5 MCV 91.2 - 91.0 - 90.1 MCH 28.1 - 29.2 - 28.9 MCHC 30.8* - 32.1 - 32.1 RDW - - 13.2 - - PLTCOUNT 258 - 279 - 264 LYMPHPCT 19.2 - - - 27.2 BASOPHILPCT - - - - 0.4 - = values in this interval not displayed. Recent Labs Component Name 01/30/25 0120 01/03/25 0231 01/02/25 1216 WBC 13.4* 12.2* 11.5* HGB 12.7 11.3* 12.3 HCT 41.2 35.5 39.1 PLTCOUNT 258 249 270 Recent Labs Component Name 01/31/25 1047 01/30/25 0150 01/06/25 0202 SODIUM 136 140 137 POTASSIUM 3.9 4.2 4.1 CHLORIDE 97* 104 101 CO2 29 25 28 BUN 34* 23 30* CREATININE 0.89 1.03 1.02 GLUCOSE 244* 359* 161* CALCIUM 10.0 9.5 9.7 Recent Labs Component Name 07/26/23 2226 02/21/23 18302/17/23 1838 02/16/23 1220 02/06/23 1330 11/13/21 0107 11/12/21 1823 INR 1.1 1.0 1.0 - 2.5* 1.2 - PT 14.2 13.2 12.7 - 25.7* 15.2* - PTT - - - - 35.4 77.2* 70.9* - = values in this interval not displayed. Recent Labs Component Name 01/30/25 0150 01/02/25 1216 08/09/24 1340 ALBUMIN 3.7 3.8 3.3* ALKPHOS 76 70 68 ALT 27 23 22 AST 24 22 23 TBIL 0.6 0.8 0.9 TPROT 7.7 7.7 8.0 Recent Labs Component Name 01/30/25 0150 TSH 1.984 No results for input(s): CKMB, TROPONIN, MYOGLOBIN in the last 54648 hours. No results for input(s): PHART, QWI5STL, PO2ART, D2YCOVVZ, YDD3ONA, BEART, FIO2 in the last 33122 hours. Recent Labs Component Name 01/31/25 0307 CHOL 176 HDL 60 TRIG 114 LDLCALC 93 ECG 01/30/2025: ECHO 12/03/2024: FINDINGS: Left Ventricle: Normal left ventricular size [...] root. IVC: IVC Collapses normally with inspiration. STRESS 12/2024: SUMMARY: 1. Normal myocardial perfusion study without evidence of ischemia. 2. Gated SPECT images demonstrate normal LV systolic function. Thank you for allowing us to participate in this patient's care. Please don't hesitate to call us with any further questions. Thank you for allowing us to participate in this patient's care. Please don't hesitate to call us with any further questions. Bill Croonado MD Interventional Cardiology [facility] 01/31/2025 12:39 PM [1] Past Medical History: Diagnosis Date Breast cancer (HCC) Chest pain DVT (deep venous thrombosis) ([facility]) GERD (gastroesophageal reflux disease) LUL (obstructive sleep apnea) w cpap Other pulmonary embolism without acute cor pulmonale (HCC) rls Type 2 diabetes mellitus without complications (HCC) [2] Past Surgical History: Procedure Laterality Date Arthroplasty [...] THE BATTERY IN THE LOWER LUMBAR REGION [3] Family History Problem Relation Name Age of Onset Heart Disease Mother Diabetes Mother Cancer Father Hemochromatosis Father Cancer Sister Heart Disease Brother [4] Social History Tobacco Use Smoking status: Former Current packs/day: 0.00 Types: Cigarettes Quit date: 12/05/1977 Years since quittin.1 Smokeless tobacco: Never Vaping Use Vaping status: Never Used Substance Use Topics Alcohol use: No Drug use: No [5] acetaminophen (Tylenol) 500 MG tablet albuterol HFA (Proventil; Ventolin; Proair) 108 (90 Base) MCG/ACT inhaler aspirin (Aspirin) 81 MG chew tablet atorvastatin (Lipitor) 40 MG tablet Continuous Blood Gluc Sensor (FreeStyle Eileen 2 Sensor Systm) MISC diclofenac sodium (Voltaren) 1 % gel diphenhydrAMINE (Benadryl) 25 MG capsule empagliflozin (Jardiance) 10 MG tablet exemestane (AROMASIN) 25 MG tablet folic acid (Folvite) 1 MG tablet furosemide (Lasix) 20 MG tablet gabapentin (Neurontin) 300 MG capsule HumaLOG KwikPen 100 UNIT/ML pen insulin glargine (Lantus SoloStar) pen insulin pen needle (B-D ULTRAFINE III SHORT PEN) 31G X 8 MM needle Lancets (Blackstrap DELICA PLUS 33G EXTRA FINE LANCET) methotrexate 2.5 MG tablet Multiple Vitamins-Minerals (Multivitamin Womens 50+ Adv) TABS naloxone HCl (Narcan) 4 MG/0.1ML nasal spray ondansetron, disintegrating, (Zofran ODT) 4 MG tablet Blackstrap ULTRA test strip oxyBUTYnin CR 24hr (Ditropan XL) 15 MG tablet oxyCODONE-acetaminophen (Percocet) 10-325 MG tablet pantoprazole EC (Protonix) 40 MG tablet polyethylene glycol 3350 (Miralax) 17 g packet predniSONE (Deltasone) 10 MG tablet rivaroxaban (Xarelto) 20 MG tablet rOPINIRole (REQUIP) 5 MG tablet valsartan (Diovan) 80 MG tablet [6] Allergies Allergen Reactions Latex Rash Ceftriaxone Anaphylaxis and Shortness of Breath R Cephalosporins Anaphylaxis and Shortness of Breath Trazodone Anaphylaxis and Other Shaky, restlessness, itching, throat swelling Contrast-Iodinated Agents For Ct/Other Rash Levofloxacin Urticaria and Skin Reactions Macrobid [Nitrofurantoin] Rash Lisinopril Swelling Ketorolac Itching Pregabalin Other Adhesive Sensitivity Rash Amlodipine Base Swelling Leg swelling Leg swelling Piperacillin-Tazobactam In D5w Rash Spironolactone Nausea and/or Vomiting, Fever and Headache Pt states she doesn't want to take this medication anymore Bactrim [Sulfamethoxazole W-Trimethoprim] Vomiting Reslizumab Unknown Skin Adhesives Skin Reactions * Lila Jesus, OT - 01/31/2025 11:20 AM CDT Occupational Therapy Treatment Summary Chart reviewed for diagnosis and medical systems review. Nursing consented for OT. Explained purpose of OT and patient consented to participate in therapy. Admitted; 1. Polymyositis (HCC) 2. SOB (shortness of breath) 3. Edema, unspecified type 4. Sore throat 5. Acute on chronic diastolic congestive heart failure (HCC) PPE worn by staff: gloves PPE worn by patient: socks - clean;gown - patient, clean RECOMMENDATIONS/PLAN: Patient consistent to her baseline function and met all functional goals withthe acute care OT. Will complete OT orders at this time. Discharge Planning is a multi-disciplinaryapproach. Recommended Discharge Disposition is based on the clinician's clinical decision making regarding the patient's functional, physiological and social status at time of therapy assessment. OT Discharge Recommendations: Patient may return home without the need for ongoing skilled therapy services post-hospitalization PPE worn by staff: gloves PPE worn by patient: socks - clean;gown - patient, clean AM-PAC Daily Activity score for this patient is Daily Activity Raw Score:: 24 The AM-PAC 6-clicks Daily Activity TM is a system for measuring activity limitations based on WorldHealth Organization's International Classification of functioning, Disability and Health (ICF); designed for use across patient diagnoses and conditions, care settings; assess activities of daily living. 1=total assist/unable to perform, 4= independent/no difficulty performing; lower total scores indicate more difficulty moving about. Precautions: Safety SUBJECTIVE: Im feeling better! Psychosocial: Patient Behaviors: Calm;Cooperative Pt's goal for therapy: ADL / OOB activity OBJECTIVE: Pain: Pain Assessment Pain Scale/Observation: No/denies pain Cognition: AOx4 Functional Mobility: Bed Mobility: Supine to Sit: Activity Does Not Occur Sit to Supine: Activity Does Not Occur Transfers: Sit to Stand: Modified [place] Stand to Sit: Modified [place] Toilet Transfers: Modified [place] ADL Tasks: (Through observation and using clinical judgement) Oral Facial Hygiene: Modified [place] (while seated at the sink pt washed face and brushed teeth) Upper Body Dressing: Modified [place] (Adjusted gown while standing) Lower Body Dressing: Maximal Assistance (max A to adjust socks seated. Consistent to baseline function) Toileting: Modified [place] (pt performed all aspects of toileting with mod I) Activity Tolerance/Vital Signs: Activity Tolerance: Requires rest breaks;Requires seated rest breaks ASSESSMENT: Patient in the chair upon the arrival of OT. Pt is pleasant and agreeable to session. Pt performed transfers and functional mobility with a cane with mod I. ADL assessment was performed re; grooming,UE dressing, LE dressing, and toileting. Which she was able to performed with mod I. Provided continued education on energy conservation techniques this date which pt was able to recall throughout session and utilize. At this time pt is consistent to her baseline function with ADLs. Will complete OT orders at this time. All lines, monitors, IV's, equipment in place and intact pre and post visit. RN, notified of patient's performance/location end of session. Educated patient/family in OT role/plan, ADL, functional transfer/mobility, dc plan Mobility Status-White Board Mobility Status Communication-[place] Board Updated?: Yes' Please refer to the Filed Flowsheet OT Treatment for further details. Refer to care plan for goals. If this is the last Occupational Therapy visit, this serves as the discharge summary. [id number] * Kathryn Gonzáles, PT - 01/31/2025 9:39 AM CDT Physical Therapy Treatment Summary Chart review completed. Nursing consented for PT. Explained purpose of PT and patient consented to participate in therapy. Admitting Diagnosis: 1. Polymyositis (HCC) 2. SOB (shortness of breath) 3. Edema, unspecified type 4. Sore throat 5. Acute on chronic diastolic congestive heart failure (HCC) RECOMMENDATIONS/PLAN: Discharge PT Discharge Recommendations: Patient may return home without the need for ongoing skilled therapy services post-hospitalization PPE worn by staff: gloves PPE worn by patient: socks - clean;gown - patient, clean Discharge Planning is a multi-disciplinary approach. Recommended Discharge Disposition is based on the clinician's clinical decision making regarding the patient's functional, physiological and social status at time of therapy assessment. AM-[facility] Basic mobility score for this patient is Mobility Raw Score:: 18 The -[facility] 6-clicks Basic Mobility TM is a system for measuring activity limitations based on WorldHealth Organization's International Classification of functioning, Disability and Health (ICF); designed for use across patient diagnoses and conditions, care settings; assess basic movement and physical mobility activities. 1=total assist/unable to perform, 4= independent/no difficulty performing;lower total scores indicate more difficulty moving about. SUBJECTIVE: Nursing consents for PT. Patient found alert and agreeable to participate in therapy. I'm feeling a little better Patient's Goal for the Day: to increase strength and improve independence Pain Assessment: Pain Assessment Pain Scale/Observation: No/denies pain OBJECTIVE: Precautions: Fall Risk Bed Mobility: Supine to Sit: Supervision Sit to Supine: Activity Does Not Occur Transfers: Sit to Stand: Supervision Stand to Sit: Supervision Toilet Transfers: Supervision Mobility: Distance Ambulated (ft): (20 with SPC 100 ft with FWW) Ambulation: Assistive Device: Gait Belt;Walker-2 Wheeled Ambulation: Level of Assistance: Stand By Assist Ambulation: Gait Deviations: Grace - Decreased Stairs: Number: 0 Weight Bearing Status-LLE: Weight Bearing as Tolerated Weight Bearing Status-RLE: Weight Bearing as Tolerated Weight Bearing Status-LUE: Weight Bearing as Tolerated Weight Bearing Status-RUE: Weight Bearing as Tolerated Activity Tolerance and O2 Requirements: Activity Tolerance: Requires standing rest breaks Vital Signs: SpO2: 95 % Pulse: 75 ASSESSMENT: Pt found alert and agreeable to PT evaluation this date. Overall, exhibiting fair tolerance to OOB mobility. She is making progress towards functional goals. However, this pt continues todemonstrate decreased strength, balance, and endurance impairing safety [...] Filed Flowsheet PT Evaluation for further details. In addition to direct intervention provided as indicated by time flowsheet, therapy intervention also included assessment of medical readiness for therapy based on review of medical record and analysis of session to determine recommendations, and may have included collaboration with other treatmentteam members, family education, and other activities that directly benefit the patient. If this is the last PT visit, this note serves as the discharge summary. IQRA Peralta x [phone] * Darvin Parekh MD - 01/31/2025 8:24 AM CDT [facility] Medicine Progress Note [facility] Patient: Karly Marques Interval Update Subjective improvement in swelling in the face on lower extremity, patient has improvement in dyspnea. She has an excellent urine output, continues to experience relief with Lasix. Although does report occasional shakiness, feeling unwell in the evenings, again could be side effects of steroids. Hospital Course Karly Marques is a 69-year-old female with past medical history of obesity, HFpEF, PMR on oral steroids and methotrexate, stage II breast cancer on exemestane, who presented to the hospital with generalized fatigue, lower extremity and facial swelling. Was started on IV Lasix for suspected CHF exa cerbation, symptoms likely concurrent with worsening side-effects from chronic steroid use. Cardiology consulted, patient continued on IV Lasix. Objective Temp: [98.4 ??F (36.9 ??C)-99.4 ??F (37.4 ??C)] 99.4 ??F (37.4 ??C) Pulse: [71-94] 86 Resp: [13-20] 16 BP: (117-142)/(64-87) 135/84 Weight change: -3.175 kg (-7 lb) Intake/Output Summary (Last 24 hours) at 01/31/2025 1441 Last data filed at 01/31/2025 1215 Gross per 24 hour Intake 1580 ml Output 4575 ml Net -2995 ml Physical Exam Constitutional: Appearance: Normal appearance. She is not [...] is no guarding. Musculoskeletal: Right lower leg: No edema. Left lower leg: No edema. Skin: Coloration: Skin is not jaundiced. Findings: No bruising or lesion. Neurological: General: No focal deficit present. Mental Status: She is alert and oriented to person, place, and time. Laboratory Data Recent Labs Component Name 01/30/25 0120 01/03/25 0231 01/02/25 1216 WBC 13.4* 12.2* 11.5* HGB 12.7 11.3* 12.3 HCT 41.2 35.5 39.1 PLTCOUNT 258 249 270 MCV 91.2 91.0 90.5 Recent Labs Component Name 07/26/23 2226 02/21/23 1830 02/17/23 1838 02/16/23 1220 02/06/23 1330 11/13/21 0107 11/12/21 1823 PT 14.2 13.2 12.7 - 25.7* 15.2* - INR 1.1 1.0 1.0 - 2.5* 1.2 - PTT - - - - 35.4 77.2* 70.9* - = values in this interval not displayed. Recent Labs Component Name 01/31/25 1047 01/30/25 0150 01/06/25 0202 08/09/24 1340 07/30/23 0128 07/26/23 2226 06/16/23 0848 NA - - - - 136 141 135* POTASSIUM 3.9 4.2 4.1 - 4.4 3.9 3.7 CL - - - - 101 104 103 CO2 29 25 28 - 27 28 24 BUN 34* 23 30* - 20 13 14 CREATININE 0.89 1.03 1.02 - 0.67 0.63 0.63 - = values in this interval not displayed. Recent Labs Component Name 01/31/25 1047 01/30/25 0150 01/06/25 0202 08/09/24 1340 07/30/23 0128 03/24/23 2338 03/22/23 1028 03/20/23 0355 CALCIUM 10.0 9.5 9.7 - 9.4 - 9.8 8.8 PHOS - - - - 3.0 - 3.3 2.9 - = values in this interval not displayed. Recent Labs Component Name 01/30/25 0150 01/02/25 1216 08/09/24 1340 07/30/23 0128 07/26/23 2226 06/16/23 0848 04/17/23 2059 03/24/23 2338 PROT - - - - 7.5 8.9* - 8.5* ALB - - - 2.9* 3.1* 3.5 - 3.3* ALKPHOS 76 70 68 - 74 82 - 77 AST 24 22 23 - 17 17 - 23 ALT 27 23 22 - 19 18 - 17 TBILI - - - - 0.5 0.6 - 0.4 - = values in this interval not displayed. Recent Labs Component Name 11/11/21 2238 11/05/21 1350 TROPONINI <0.010 <0.010 Recent Labs Component Name 02/22/23 0759 [facility] 14.6 Microbiology Results (Displays last 21 days for this encounter ONLY) Procedure Component Value - Date/Time STREP A SCREEN DIRECT W RFLX STREP A CULTURE [[id number]] (Normal) Collected: 01/30/251449 Lab Status: Final result Specimen: Microbiology from Throat Updated: 01/30/251516 Strep A Rapid Negative Narrative: Test has reflexed to a Strep A culture. CULTURE STREP GROUP A [[id number]] Collected: 01/30/25 145 Lab Status: In process Specimen: Microbiology from Throat Updated: 01/30/251516 Imaging XR Chest 1Vw Portable Result Date: 01/30/2025 IMPRESSION: As above. > Interpreting Provider: Justen Lynch MD on 01/30/2025 8:29 AM Assessment and Plan The patient's active hospital problems include: Acute heart failure with preserved ejection fraction (HFpEF) (HCC) (POA: Yes) Chronic back pain (POA: Yes) Chronic anticoagulation (POA: Yes) Essential hypertension (POA: Yes) LUL (obstructive sleep apnea) (POA: Yes) Type 2 diabetes mellitus without complication (CMS/HCC) (POA: Yes) Weakness (POA: Yes) Breast cancer (HCC) (POA: Yes) Morbid obesity (HCC) (POA: Yes) Polymyositis (HCC) (POA: Yes) Edema, unspecified type (POA: Yes) SOB (shortness of breath) (POA: Yes) Sore throat (POA: Yes) Plan: Continue IV Lasix today, discussed with Cardiology, likely transitioned to p.o. tomorrow - continue prednisone home dose - continue aspirin and statin - continue Jardiance -continue up titrated insulin for steroid-induced hyperglycemia, type 2 diabetes mellitus, continueLantus 26, start NovoLog 6 units with meals, switch to medium dose sliding scale insulin - continue Xarelto - continue valsartan Diet: DIET CONS CARB CARDIAC DIETARY NUTRITION SUPPLEMENTS DVT Prophylaxis: Rivaroxaban Code Status: Full Code Disposition: Home Estimated Date of Discharge: 02/02/2025 Time spent: 35 minutes, including a total of face to face time, family discussion, reviewing nursing and retirement sales consultant notes, labs and imaging, discussing/coordinating care with the care team, and documentation. Darvin Parekh MD 01/31/2025 2:41 PM * Kalli Myles, PharmD - 01/30/2025 3:51 PM CDT Images from the original note were not included. Pharmacy Home Medication History TRANSITIONS OF CARE Information Obtained from (include 2 sources unless using facility list): Pharmacy Refill history and Care Everywhere Medications confirmed with patient via room phone Allergies: Confirmed with patient - no changes Upon discharge patient requests medications to be filled at: [facility] Medications Added: Methotrexate 15 mg every 7 days - 3 tablets of 2.5 mg in the morning and 3 in the evening Folic acid 1 mg daily Medications Removed (specify reason removed for each medication): Benzonatate Ibuprofen- on blood thinning meds Senokot-S Medications Modified: Prednisone changed from 10 mg to 20 mg daily Of Note (discrepancies in fill history, details of warfarin management, patient concerns, refills needed or other relevant information): Confirmed with patient no other use of OTC medications for pain/allergy/other, eye drops, patches, inhalers, topical creams/ointments. Prior to Admission Medications Prescriptions Last Dose Informant Patient Reported? Taking? Benzocaine-Menthol (throat lozenge) > Month No No Sig: Take 1 (one) lozenge by mouth every 2 hours as needed for Sore Throat Patient not taking: Reported on 01/30/2025 Continuous Blood Gluc Sensor ([facility] Eileen 2 Sensor Systm) [facility] [place] No Sig: APPLY 1 SENSOR AND WEAR FOR 14 DAYS TO CHECK BLOOD SUGAR HumaLOG KwikPen 100 UNIT/ML pen 01/29/2025 No Yes Sig: Inject 6 (six) Units subcutaneously 3 times daily before meals Patient taking differently: Inject 28 (twenty eight) Units subcutaneously 3 times daily before meals Pt states she takes 28 units + a SSI with each meal Lancets (ONETOUCH DELICA PLUS 33G EXTRA FINE LANCET) Patient Yes No Sig: USE FOUR TIMES DAILY Multiple Vitamins-Minerals (Multivitamin Womens 50+ Adv) TABS Past Week Patient Yes Yes Sig: Take 1 tablet by mouth once daily ONETOUCH ULTRA test strip Patient Yes No Si times daily acetaminophen (Tylenol) 500 MG tablet > Month No No Sig: Take 1 (one) tablet by mouth every 4 hours as needed Maximum allowable Acetaminophen amount = 4 Grams (4000 mg) / 24 hours. albuterol HFA (Proventil; Ventolin; Proair) 108 (90 Base) MCG/ACT inhaler Past Month Patient Yes Yes Sig: Inhale 2 (two) puffs by mouth every 6 hours as needed aspirin (Aspirin) 81 MG chew tablet 01/29/2025 Morning No Yes Sig: Take 1 (one) tablet by mouth once daily (chew and swallow) atorvastatin (Lipitor) 40 MG tablet Past Week No Yes Sig: Take 1 (one) tablet by mouth at bedtime benzonatate (Tessalon) 100 MG capsule Not Taking No No Sig: Take 1 (one) capsule by mouth 3 times daily as needed for Cough Patient not taking: Reported on 01/30/2025 diclofenac sodium (Voltaren) 1 % gel Past Month No Yes Sig: Apply 2 (two) g to affected area 4 times daily Patient taking differently: Apply 2 (two) g to affected area 4 times daily Apply to lower back diphenhydrAMINE (Benadryl) 25 MG capsule Past Month No Yes Sig: Take 1 (one) capsule by mouth every 6 hours as needed for Itching empagliflozin (Jardiance) 10 MG tablet Past Week No Yes Sig: Take 1 (one) tablet by mouth once daily exemestane (AROMASIN) 25 MG tablet Past Week Patient No Yes Sig: Take 1 (one) tablet by mouth DAILY furosemide (Lasix) 20 MG tablet Past Week Patient Yes Yes Sig: Take 1 (one) tablet by mouth once daily gabapentin (Neurontin) 300 MG capsule Past Week Patient Yes Yes Sig: Take 1 (one) capsule by mouth 3 times daily ibuprofen (Motrin) 200 MG tablet Not Taking No No Sig: Take 1 (one) tablet by mouth every 6 hours as needed Patient not taking: Reported on 01/30/2025 insulin glargine (Lantus SoloStar) pen 01/29/2025 Morning No Yes Sig: Inject 20 (twenty) Units subcutaneously once daily Patient taking differently: Inject 45 (forty five) Units subcutaneously once daily insulin pen needle (B-D ULTRAFINE III SHORT PEN) 31G X 8 MM needle Patient No No Si times daily methotrexate 2.5 MG tablet Past Week Yes Yes Sig: Take 6 (six) tablets by mouth every 7 days (once a week) Take 3 tablets in the morning and 3 tablets in the evening naloxone HCl (Narcan) 4 MG/0.1ML nasal spray Patient Yes No ondansetron, disintegrating, (Zofran ODT) 4 MG tablet Past Week Patient No Yes Sig: Take 1 (one) tablet by mouth every 6 hours as needed for Nausea/Vomiting Allow tablet to dissolve on the tongue oxyBUTYnin CR 24hr (Ditropan XL) 15 MG tablet Past Week Patient No Yes Sig: Take 1 (one) tablet by mouth once daily oxyCODONE-acetaminophen (Percocet) 10-325 MG tablet Past Week No Yes Sig: Take 1 (one) tablet by mouth every 4 hours as needed pantoprazole EC (Protonix) 40 MG tablet Past Week Patient Yes Yes Sig: Take 1 (one) tablet by mouth once daily polyethylene glycol 3350 (Miralax) 17 g packet Past Month No Yes Sig: Take 17 (seventeen) g by mouth once daily Patient taking differently: Take 17 (seventeen) g by mouth once daily as needed for Constipation predniSONE (Deltasone) 10 MG tablet Past Week No Yes Sig: Take 1 (one) tablet by mouth daily with breakfast Patient taking differently: Take 2 (two) tablets by mouth daily with breakfast rOPINIRole (REQUIP) 5 MG tablet Past Week Patient Yes Yes Sig: TAKE 1 TABLET BY MOUTH EVERY NIGHT rivaroxaban (Xarelto) 20 MG tablet Past Week Patient Yes Yes Sig: Take 1 (one) tablet by mouth daily with breakfast Reasons: Blockage of Blood Vessel to Lung bya Particle, Blood Clot in a Deep Vein senna-docusate (Senokot-S) 8.6-50 MG tablet Not Taking No No Sig: Take 1 (one) tablet by mouth once daily Patient not taking: Reported on 01/30/2025 valsartan (Diovan) 80 MG tablet Past Week No Yes Sig: Take 1 (one) tablet by mouth once daily Facility-Administered Medications: None ASSESSMENT AND PLAN The 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 All medication changes noted above discussed with NA. * Kaylie Villanueva RN - 01/30/2025 1:57 PM CDT Care Coordination Initial Assessment [facility] Managed Medicare and Medicaid [place] Expected Discharge Date: 01/31/2025 Expected Discharge Disposition: Home or Self Care Transportation at Discharge: Family Daughter. - Yunior Velez - [phone] Spouse Jimmie Marques is not in their life.. Prior Level of Care: Home Prior to Admit Provider: Chore--worker services 24 hrs//week provided by Daughter Yunior Velez Comments: 69 year old female who is currently admitted to the hospital with recurrent lower extremity swelling, shortness of breath. Cardiac workup thus far demonstrates normal NT pro BNP level, but chest x-ray does demonstrate evidence of pulmonary vascular congestion. Lives with: Family Members (Daughter) Physical Limitations: Ambulate-In Home ;With Assistive Device Cane vs walker Requires Assistance With: Housekeeping;Shopping;Meal Preparation;Medication Administration;Hygiene Daughter is her dope worker and assists with LB dressing, getting into shower safely, and IADLs (FWW, cane, shower chair, grab bars) Preferred Pharmacy: [id number] - [address] [place] [id number] [address] [place] [id number] READMISSION RISK SCORE is N/A at 1:57 PM 01/30/2025. Met with patient Family Support (name and phone): Extended Emergency Contact Information Primary Emergency Contact: Jimmie Marques Address: [address] [place] [address] [place] [address] Relation: Spouse Secondary Emergency Contact: Yunior Velez Mobile Relation: Daughter Patient or marketing development representative requests care coordination reach out to family or caregiver listed above regarding discharge planning and at time of discharge? Yes Daughter. - Yunior Velez - [phone] Durable Medical Equipment Planning Type of Walker: Front Wheeled Walker Type of Cane: Standard/Quad Type of Bathroom Equipment: Shower Chair;Grab Bars;Hand Held Shower Head DME Provider: None List DME pt. requires but does not have.: None Mess Attendant Crew Referral: No Will continue to follow. For any questions or needs please contact: Supply Service Worker: Kaylie Villanueva RN., CM Ascom: [phone] * Gil Pacheco RD/SARA - 01/30/2025 1:53 PM CDT BRIEF SYNOPSIS: Nutrition Risk Identified but does not meet malnutrition criteria. Nutrition Plan: Current diet order: Consistent Carb Standard;Cardiac Standard;Fluid Restriction (2000 mL fluid) Current supplement order: Ensure HP daily Recommendation to Physician: None Discharge Needs: TBD CLINICAL NUTRITION ASSESSMENT: Patient screened for acute on chronic CHF. Patient reports having so-so appetite, reports decreased PO intake over the past 4-5 days. No PO intake documented at this time. Patient reports nausea that comes and goes, denies constipation/diarrhea. Patient reports sore throat and some discomfort when eating/swallowing and that she has to stop when she is eating at times for food to go down. Patient reports that she had lost 45-48 lbs intentionally towards the end of last year and beginning of this year, states her weight got down to 262-263 lbs. Patient reports that she has been on steroids which has been leading to weight gain. Revieweddocumented weight history. 272# bed scale 07/28/23, 275# bed scale 01/02/25. Most recent weight of 283# stated then documented via bed scale 01/30/25. No significant weight loss noted at this time. Discussed low sodium and consistent carb diet recommendations- patient states that she has been wanting to see a dietitian to discuss how to manage these recommendations. Also discussed oral nutrition suppl ements with patient due to reported decreased intake- patient reports sometimes drinking Glucerna or Equate at home for lunch if not hungry. Patient agreeable to Ensure HP daily. Ensure High Protein (160 calories ,16 grams protein and 19 grams of carb per 8 oz serving). See full education details below. Patient receiving consistent carb, cardiac diet with 2000 mL fluid restriction. Reviewed labs. A1c=9.3% 01/02/25, POC BG range past 24 hours: 190-244 mg/dL (noted patient receiving Prednisone). Patient receiving Jardiance, sliding scale insulin, Prednisone. 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 Med/Surg History and Clinical Diagnoses: 69 year old female with medical hx of HFpEF, LUL, PE/DVT on xarelto, polymyosisitis, DM, and hx breast cancer s/p bilateral mastectomy and radiation tx that presented to the ED with c/o worsening SOB and fatigue over the last few days and increased bilaterallower extremity edema Height: 154.9 cm (5' 1) BMI: Body mass index is 53.62 kg/m??. BMI Range: Morbidly Obese Class 3 IBW/lb (Calculated) Female: 105 Recent Weights/Methods 07/28/2023 1742 07/28/2023 1754 01/02/2025200901/04/2025 0423 01/05/2025 0537 01/06/2025 0554 01/30/2025 0100 01/30/2025 0409 Weight: 123.8 kg (272 lb 15.7 oz) 123.8 kg (272 lb 15.7 oz) 124.7 kg (275 lb) 123 kg (271 lb 1.6 oz) 124 kg (273 lb 4.8 oz) 125 kg (275 lb 8 oz) 128.4 kg (283 lb) 128.7 kg (283 lb 12.8 oz) Weight Method : Stated Bed scale Bed scale Bed scale Bed scale Bed scale Stated Bed scale UBW: Usual weight/lb: unclear Unintentional weight change: weight gain per patient PO INTAKE Current diet order: Consistent Carb Standard;Cardiac Standard;Fluid Restriction (2000 mL fluid) Nutrition recommendation: agree with current nutrition order Food Allergies: No known food allergies Last 48 hr PO INTAKE No data recorded Current supplement order: Ensure HP daily None Chewing/Swallowing: Other (Comment) (sore throat) GI Concerns: Nausea Stools: RETURNS CLERK Skin/Wound: intact Estimated Needs: KCAL: 1431 (30 kcal/kg IBW) Protein (g): 48 (1.0 g/kg IBW) Fluid (ml): 1 ml/kcal Needs based on: Kcal/kg- (Comment) (47.7 kg IBW) Recommended Access Route: PO Labs: Recent Labs Component Name 01/30/25 0150 01/06/25 0202 01/05/25 0700 01/03/25 0231 01/02/25 1216 08/09/24 1340 07/30/23 0128 07/26/23 2226 06/16/23 0848 SODIUM 140 137 139 - 141 136 - - - NA - - - - - - 136 141 135* POTASSIUM 4.2 4.1 3.9 - 3.6 3.9 4.4 3.9 3.7 CHLORIDE 104 101 102 - 105 103 - - - CO2 25 28 27 - 27 24 27 28 24 BUN 23 30* 38* - 18 19 20 13 14 CREATININE 1.03 1.02 1.33* - 0.78 0.82 0.67 0.63 0.63 GLUCOSE 359* 161* 201* - 166* 212* 238* 131* 250* CALCIUM 9.5 9.7 10.0 - 9.7 9.4 9.4 9.5 9.9 ALT 27 - - - 23 22 - 19 18 ALKPHOS 76 - - - 70 68 - 74 82 AST 24 - - - 22 23 - 17 17 TBIL 0.6 - - - 0.8 0.9 - - - TPROT 7.7 - - - 7.7 8.0 - - - EGFR 59* 60* 44* - 83* 78* >90 >90 >90 ALBUMIN 3.7 - - - 3.8 3.3* - - - - = values in this interval not displayed. Recent Labs Component Name 07/30/23 0128 03/22/23 1028 03/20/23 0355 PHOS 3.0 3.3 2.9 Recent Labs Component Name 01/06/25 0202 01/05/25 0700 01/04/25 0605 MAGNESIUM 2.2 2.0 2.0 Recent Labs Component Name 01/30/25 0120 01/03/25 0231 01/02/25 1216 HGB 12.7 11.3* 12.3 HCT 41.2 35.5 39.1 Recent Labs Component Name 01/02/25 1216 12/25/22 0356 10/31/21 1155 HGBA1C 9.3* 8.6* 7.8* No data found. MEDICATIONS FOR CURRENT ENCOUNTER: SCHEDULED MEDICATIONS: 0.9% NaCl injection 3 mL, Intracatheter, q8h 0.9% NaCl injection 3 mL, Intracatheter, q8h aspirin chew tablet 81 mg, Oral, QDAY atorvastatin (Lipitor) tablet 40 mg, Oral, AT BEDTIME empagliflozin (Jardiance) tablet 10 mg, Oral, QDAY furosemide (Lasix) injection 40 mg, Intravenous, BID insulin aspart (NovoLOG) pen 0-18 Units, Subcutaneous, TID WC insulin aspart (NovoLOG) pen 0-7 Units, Subcutaneous, AT BEDTIME insulin glargine (Lantus) pen 26 Units, Subcutaneous, AT BEDTIME nystatin (Mycostatin) suspension 5 mL, Swish and Swallow, 4X/day predniSONE (Deltasone) tablet 20 mg, Oral, QDAY WITH BREAKFAST rivaroxaban (Xarelto) tablet 20 mg, Oral, QDAY WITH BREAKFAST valsartan (Diovan) tablet 80 mg, Oral, QDAY [COMPLETED] furosemide (Lasix) injection 20 mg, Intravenous, Now [COMPLETED] HYDROcodone-acetaminophen ([place]) 10-325 MG tablet 1 tablet, Oral, Once CONTINUOUS MEDICATIONS: PRN MEDICATIONS: Or Or Or 0.9% NaCl injection 1-10 mL, Intracatheter, PRN 0.9% NaCl injection 1-10 mL, Intracatheter, PRN acetaminophen (Tylenol) tablet 500 mg, Oral, q8h PRN albuterol HFA (Proventil; Ventolin; Proair) 108 (90 Base) MCG/ACT inhaler 2 puff, Inhalation, q6h PRN benzonatate (Tessalon) capsule 100 mg, Oral, TID PRN dextrose IV 12.5 g, Intravenous, PRN dextrose IV 25 g, Intravenous, PRN diphenhydrAMINE (Benadryl) capsule 50 mg, Oral, AT BEDTIME PRN glucagon (Glucagen) injection 1 mg, Subcutaneous, PRN glucose (Diabetic Use) oral gel, Oral, PRN melatonin tablet 3 mg, Oral, AT BEDTIME PRN - MR X 1 ondansetron (disintegrating) (Zofran ODT) tablet 4 mg, Oral, q6h PRN ondansetron (Zofran) injection 4 mg, Intravenous, q6h PRN oxyCODONE-acetaminophen (Percocet) 10-325 MG tablet 1 tablet, Oral, q4h PRN throat lozenge 1 lozenge, Oral, q2h PRN Edema RLE Edema: Deep pitting, indentation remains for a short time (01/30/25 0725) LLE Edema: Deep pitting, indentation remains for a short time (01/30/25 0725) Nutrition Diagnostic Statement: Inadequate oral intake related to:: decreased appetite as evidencedby:: oral intake insufficient to meet estimated requirements Nutrition Diagnostic Statement Progress: New diagnostic statement established Nutrition Intervention: Meals and snacks:;Medical Food Supplements:;Nutrition Education - Content Education needed: Low Sodium;Consistent Carb Education Provided: Yes;Handout Provided (also discussed oral nutrition supplements) (01/30/25 1300) Discussed the need to incorporate nutritional supplements into the diet to meet estimated nutrient needs. Explained nutrient needs are not being met by current food and beverage intake. Encouraged consumption of nutritional supplement(s) to help meet estimated nutrient requirements for weight maintenance, weight gain or healing processes. Patient reports limiting sodium intake at home, does not have salt in her home and uses Mrs. JEFFERY. Patient reports reading nutrition label for sodium and sugar content of foods. Patient tries to not over-do her carbohydrate intake/portions, makes sure to get in protein. Discussed diabetic diet guidelines including: monitoring carbohydrate intake, meal planning techniques, portion control, reading the food label, limiting saturated fat in diet, choosing lean protein sources, and sugar alcohols/artificial sweetners. Provided Diabetic diet materials with contact information. Discussed low sodium diet guidelines (limiting processed or high sodium foods, reading the food label, monitoring serving sizes, meal planning and salt substitutes). Provided low sodium diet materials with contact information. Monitoring: PO intake Acceptance of oral nutrition supplement and intake Weights Labs GI function/bowel movements Skin Monitor per nutrition guidelines. Risk Level: Moderate Evaluation: Nutrition Goal: Total intake will meet estimated nutrient needs Nutrition Goal Timeframe: Ongoing Nutrition Goal Progress: New goal established Gil De Los Santos MS, RD/LD Ascom [id number] * Magda Russell, OT - 01/30/2025 12:17 PM CDT Occupational Therapy Initial Evaluation Orders received. Chart reviewed for diagnosis and medical systems review. Nursing consented for OT. Explained purpose of OT and patient consented to participate in therapy. RECOMMENDATIONS/PLAN: Pt would benefit from continued occupational therapy services while in hospital to maximize functional mobility and independence prior to discharge. Will continue to follow, updating and progressing plan of care as appropriate. Discharge Planning is a multi-disciplinary approach. Recommended Discharge Disposition is based on the clinician's clinical decision making regarding the patient's functional, physiological and social status at time of therapy assessment. OT Discharge Recommendations: Patient may return home without the need for ongoing skilled therapy services post-hospitalization PPE worn by staff: gloves AM-PAC Daily Activity score for this patient is Daily Activity Raw Score:: 19 The AM-PAC 6-clicks Daily Activity TM is a system for measuring activity limitations based on WorldHealth Organization's International Classification of functioning, Disability and Health (ICF); designed for use across patient diagnoses and conditions, care settings; assess activities of daily living. 1=total assist/unable to perform, 4= independent/no difficulty performing; lower total scores indicate more difficulty moving about. Precautions: falls PMH: Past Medical History[1] Dx: (M33.20) Polymyositis (HCC) (primary encounter diagnosis) (R06.02) SOB (shortness of breath) (R60.9) Edema, unspecified type (J02.9) Sore throat (I50.33) Acute on chronic diastolic congestive heart failure (HCC) SUBJECTIVE: I have some blisters in my mouth that are really painful. Psychosocial: Pt calm and cooperative throughout treatment session Pt's goal for therapy: get out of bed Occupational Profile/PLOF: Home Situation Type of Residence: Private Residence Living arrangement: (daughter) Steps to Enter: 2 Ramp: No Handrails: None Home Structure: Basement;One Story Primary Bedroom: First Floor Primary Bathroom: First Floor Bathroom : Tub/Shower Combo Equipment at Home: (FWW, cane, shower chair, grab bars) Prior Level of Function Mobility: Ambulate-In Home ;With Assistive Device (cane most often) Fallen Within 6 Mos: No Have Help at Home?: Yes, there is help at home now Who assists you at home?: Friends/Family How often is assistance provided?: daughter is her dope worker and assists with LB dressing, getting into shower safely, and IADLs Level of Help Sufficient?: Yes Oxygen at Home: CPAP at night Activity at Home: Sedentary Vision: Corrected with glasses Hearing Exceptions: No impairment Who manages medications?: daughter Cognition: A&Ox4, safety awareness appropriate Pain Assessment: Pt reports pain in mouth, did not rate RUE Assessment: Grossly WFL LUE Assessment: Grossly WFL Basic ADL's: Oral Facial Hygiene: Supervision (standing at sink to wash hands) Lower Body Dressing: Total Assistance (to don socks, daughter assists at home, pt able to doff underwear, but not merchandise pickup/receiving associate on own) Toileting: Supervision (to complete all aspects of toileting) Took purewick off of patient and brought commode to room as pt safe to use commode on own. Functional Mobility: Bed Mobility: Supine to Sit: Supervision (increased time) Sit to Supine: (pt in recliner at end of session) Transfers: Sit to Stand: Supervision Stand to Sit: Supervision Mobility: Distance Ambulated (ft): (pt ambulated to bathroom and back supervision with cane) Oxygen Therapy: $ O2 DEVICE: Room Air Cardiopulmonary: Vital signs: 01/30/25 0934 Vital Signs Pulse 77 (-101) Oxygen Therapy SpO2 94 % (or greater) ASSESSMENT: Pt in bed at beginning of session. Pt agreeable to therapy. Pt participated in ADL taskassessment, including LB dressing, toileting, and grooming. Pt tolerated session fair. Pt presents with decreased activity tolerance, decreased balance, and generalized weakness, as well as pain. Pt in recliner at end of session with all immediate needs met. Call light and phone in reach All lines, monitors, IV's, equipment in place and intact pre and post visit. RNroman, notified of patient's performance/location end of session. Educated patient/family in ADLs, transfers, role of OT, fall risk, safety Problem list: decreased endurance, decreased balance, impaired functional mobility Functional limitation: Decreased independence with transfers; decreased ability to perform ADLs, decreased UE strength, decreased safety with functional mobility. Rationale for therapy: Patient will benefit from OT to address the above issues. Patient will be seen for: ADL retraining, functional transfers, balance, endurance, exercise. In addition to direct intervention provided as indicated by time flowsheet, therapy intervention also included assessment of medical readiness for therapy based on review of medical record and analysis of session to determine recommendations, and may have included collaboration with other treatmentteam members, family education, and other activities that directly benefit the patient. Refer to Plan of Care for OT goals. Refer to filed flow sheet for further details. If this is the last Occupational Therapy visit, this serves as the discharge summary. BIENVENIDO Franco, OTR/L [phone] [1] Past Medical History: Diagnosis Date Breast cancer (HCC) Chest pain DVT (deep venous thrombosis) (HCC) GERD (gastroesophageal reflux disease) LUL (obstructive sleep apnea) w cpap Other pulmonary embolism without acute cor pulmonale (HCC) rls Type 2 diabetes mellitus without complications (HCC) * Kathryn Gonzáles, PT - 01/30/2025 10:59 AM CDT Physical Therapy Evaluation. PT orders received, chart reviewed for diagnosis and medical systems review.. Nursing consents for PT. Explained purpose of PT and patient consented to participate in therapy. Admitting Diagnosis: 1. Polymyositis (HCC) 2. SOB (shortness of breath) 3. Edema, unspecified type 4. Sore throat 5. Acute on chronic diastolic congestive heart failure (HCC) RECOMMENDATIONS/PLAN: Discharge PT Discharge Recommendations: Patient may return home without the need for ongoing skilled therapy services post-hospitalization PPE worn by staff: gloves PPE worn by patient: socks - clean;gown - patient, clean Discharge Planning is a multi-disciplinary approach. Recommended Discharge Disposition is based on the clinician's clinical decision making regarding the patient's functional, physiological and social status at time of therapy assessment. [facility] Basic mobility score for this patient is Mobility Raw Score:: 21 The -[facility] 6-clicks Basic Mobility TM is a system for measuring activity limitations based on WorldHealth Organization's International Classification of functioning, Disability and Health (ICF); designed for use across patient diagnoses and conditions, care settings; assess basic movement and physical mobility activities. 1=total assist/unable to perform, 4= independent/no difficulty performing;lower total scores indicate more difficulty moving about. SUBJECTIVE: Nursing consents for PT. Patient found alert and agreeable to participate in therapy. I feel much better today than yesterday Home Situation: Type of Residence: Private Residence Living arrangement: (daughter) Steps to Enter: 2 Home Structure: Basement;One Story Primary Bedroom: First Floor Primary Bathroom: First Floor Bathroom : Tub/Shower Combo Equipment at Home: Cane;Bathroom Equipment;Walker;CPAP/BiPAP Prior Level of Functioning: Mobility: Ambulate-In Home ;With Assistive Device Fallen Within 6 Mos: No Have Help at Home?: Yes, there is help at home now Activity at Home: Sedentary Oxygen at Home: CPAP at night Pain Assessment: Reports in mouth with sores Patient/family stated goal: to increase strength and independence OBJECTIVE: Precautions:Low Fall Risk ROM and Strength: Strength - Right Lower Extremity: Within Functional Limits Strength - Left Lower Extremity: Within Functional Limits Bed Mobility: Supine to Sit: Complete [place] Sit to Supine: Activity Does Not Occur Transfers: Sit to Stand: Supervision Stand to Sit: Supervision Toilet Transfers: Supervision Mobility: Distance Ambulated (ft): 10 FEET (+15) Ambulation: Assistive Device: Gait Belt;Cane-Straight Ambulation: Level of Assistance: Stand By Assist Weight Bearing Status-LLE: Weight Bearing as Tolerated Weight Bearing Status-RLE: Weight Bearing as Tolerated Weight Bearing Status-LUE: Weight Bearing as Tolerated Weight Bearing Status-RUE: Weight Bearing as Tolerated Stairs: Number: 0 Activity Tolerance/Oxygen Requirements and Vitals: SpO2: 96 % ASSESSMENT: Pt found alert and agreeable to PT evaluation this date. Exhibiting fair/ good tolerance to OOB mobility. Overall, this pt demonstrates decreased endurance impairing safety and independence with functional [...] visit. Nurse informed about today's treatment session. Rationale for therapy: Patient will benefit from PT to address the above issues. Refer to Plan of Care for PT goals. Please refer to Filed Flowsheet PT Evaluation for further details. If this is the last PT visit, this note serves as the discharge summary. In addition to direct intervention provided as indicated by time flowsheet, therapy intervention also included assessment of medical readiness for therapy based on review of medical record and analysis of session to determine recommendations, and may have included collaboration with other treatmentteam members, family education, and other activities that directly benefit the patient. IQRA Peralta [phone] * David Valencia B - 01/30/2025 9:37 AM CDT 01/30/25936 Visit Type Assessment Date 01/30/25 Team Sports Sales Associate Visiting Patient JBN Pastoral Care Visit Type(s) Patient not available;Initial Visit (Patient with staff.) Visit Information Start time 936 End time 941 Total Time Spent with Patient (min) 5 Rev. David Valencia M.Div., M.A. Team Sports Sales Associate 4W/4E & Behavioral Health Monday - Monday 8:00 am - 4:30 pm Ascom [phone] Outside: [phone] For more urgent needs, please page at the appropriate pager number below. [facility]: Call [phone] (Mon-Mon: 7:00 am - 4:00 pm & Sun 7:00 am - 3:00 pm). Pastoral Care On-Call Pager: Call [phone] (outside of the times listed above) and enter a 10 digit call back number. Please allow the vision impaired teacher head well puller 30 minutes to arrive to the hospital. * Darvin Parekh MD - 01/30/2025 8:24 AM CDT Plan of care note Seen and examined, medications reviewed. She describes multiple complaints to me including weight gain, lower extremity swelling without pitting edema, facial swelling. Symptoms appear to be more consistent with steroid side-effects, discussed this with the patient. In addition she has discomfort when swallowing with burning pain in her mouth with solids and liquids occasionally, while on examination had no oral lesions, posterior pharynx were not visible. We will continue statin for that. Discussed with Cardiology recommended IV Lasix today, reassess tomorrow. HFpEF exacerbation does not appear to be severe. She is managed by Rheumatology as an outpatient for polymyalgia rheumatica on prednisone and methotrexate. Weakness and fatigue can be attributed to sleep apnea as well. Disposition, anticipate home tomorrow versus the day after. Darvin Parekh MD Internal Medicine [facility] documented in this encounter H&P Notes * Jayla Bettencourt, DRILLER PORTABLE-LIVESTOCK SPECULATOR - 01/30/2025 3:36 AM CDT [facility] Medicine History and Physical [facility] Patient: Karly Marques Chief Complaint / History of Present Illness Chief Complaint: Chief Complaint Patient presents with Swelling Leg Karly Marques is a 69 year old female with medical hx of HFpEF, LUL, PE/DVT on xarelto, polymyosisitis, DM, and hx breast cancer s/p bilateral mastectomy and radiation tx that presented to the EDwith c/o worsening SOB and fatigue over the last few days and increased bilateral lower extremity edema since yesterday. Reported other associated symptoms intermittent dry cough, and temporal headache. Denied any fever, chills, sweats, chest pain, palpitations, GI or symptoms, or dizziness. Endorsed medication changes recently; increased steriods to 20mg daily and started on methotrexate; stated she's noticed some facial swelling and sore mouth/throat since increase. No white plaques noted; mild erythema. No sick contacts. Denied any smoking, alcohol, or illicit drug use. Stated recently discharged mid-dec after being treated for similar symptoms. Stated she was prescribed a bunch of new meds but didn't start them right away. She knows one was for BP; stated she missed that dose this evening since she was in the hospital. Reports she's been taking the lasix po with no improvement; endorsed she was started on aldactone as well. But it caused her to have nausea and vomiting so that was stopped. ED workup noted: Pro BNP 156; tropes negative; glucose 359; WBC 13.4; TSH 1.984; EKG showed normal sinus rhythm with rate of 86 QTC 442. CXR prelim interpretation in ED some vascular prominence. No infiltrate. Given 20mg IV lasix. BP improved. Unable to ambulate to bathroom w/o getting SOB; pt states that's new for her. Admitted for [facility] w/u. Review of Systems Review of Systems Constitutional: Positive for malaise/fatigue. Negative for chills, diaphoresis and fever. HENT: Positive for sore throat. Eyes: Negative. Respiratory: Positive for cough (intermittent non prod) and shortness of breath. Cardiovascular: Positive for leg swelling. Negative for chest pain and palpitations. Gastrointestinal: Negative for abdominal pain, constipation, diarrhea, nausea and vomiting. Genitourinary: Negative for dysuria and flank pain. Musculoskeletal: Negative. Skin: Negative. Neurological: Positive for headaches (temporal). Negative for dizziness. Endo/Heme/Allergies: Negative. Psychiatric/Behavioral: Negative. Medical and Surgical History Past Medical History[1] Past Surgical History[2] Current Outpatient Medications Medication Instructions acetaminophen (TYLENOL) 500 mg, Oral, EVERY 4 HOURS PRN, Maximum allowable Acetaminophen amount = 4Grams (4000 mg) / 24 hours. albuterol HFA (Proventil; Ventolin; Proair) 108 (90 Base) MCG/ACT inhaler 2 puffs, EVERY 6 HOURS PRN aspirin (ASPIRIN) 81 mg, Oral, DAILY, (chew and swallow) atorvastatin (LIPITOR) 40 mg, Oral, AT BEDTIME Benzocaine-Menthol (throat lozenge) 1 lozenge, Oral, EVERY 2 HOURS PRN benzonatate (TESSALON) 100 mg, Oral, 3 TIMES DAILY PRN Continuous Blood Gluc Sensor (FreeStyle Eileen 2 Sensor Systm) [facility] [place] 1 SENSOR AND WEAR FOR 14 DAYS TO CHECK BLOOD SUGAR diclofenac sodium (VOLTAREN) 2 g, Topical, 4 TIMES DAILY diphenhydrAMINE (BENADRYL) 25 mg, Oral, EVERY 6 HOURS PRN empagliflozin (JARDIANCE) 10 mg, Oral, DAILY exemestane (AROMASIN) 25 mg, DAILY furosemide (LASIX) 20 mg, DAILY gabapentin (NEURONTIN) 300 mg, 3 TIMES DAILY HumaLOG KwikPen 6 Units, Subcutaneous, 3 TIMES DAILY BEFORE MEALS ibuprofen (MOTRIN) 200 mg, Oral, EVERY 6 HOURS PRN insulin pen needle (B-D ULTRAFINE III SHORT PEN) 31G X 8 MM needle 4 TIMES DAILY Lancets (ONETOUCH DELICA PLUS 33G EXTRA FINE LANCET) USE FOUR TIMES DAILY Lantus SoloStar 20 Units, Subcutaneous, DAILY Multiple Vitamins-Minerals (Multivitamin Womens 50+ Adv) TABS 1 tablet, DAILY naloxone HCl (Narcan) 4 MG/0.1ML nasal spray No dose, route, or frequency recorded. ondansetron (disintegrating) (ZOFRAN ODT) 4 mg, Oral, EVERY 6 HOURS PRN, Allow tablet to dissolve on the tongue ONETOUCH ULTRA test strip 4 TIMES DAILY oxyBUTYnin CR 24hr (DITROPAN XL) 15 mg, Oral, DAILY oxyCODONE-acetaminophen (Percocet) 10-325 MG tablet 1 tablet, Oral, EVERY 4 HOURS PRN pantoprazole EC (PROTONIX) 40 mg, DAILY polyethylene glycol 3350 (MIRALAX) 17 g, Oral, DAILY predniSONE (DELTASONE) 10 mg, Oral, DAILY WITH BREAKFAST rivaroxaban (XARELTO) 20 mg, DAILY WITH BREAKFAST rOPINIRole (REQUIP) 5 MG tablet TAKE 1 TABLET BY MOUTH EVERY NIGHT senna-docusate (Senokot-S) 8.6-50 MG tablet 1 tablet, Oral, DAILY valsartan (DIOVAN) 80 mg, Oral, DAILY Allergies[3] Social and Family Medical History Social History Socioeconomic History Marital status: Spouse name: Not on file Number of children: Not on file Years of education: Not on file Highest education level: Not on file Occupational History Not on file Tobacco Use Smoking status: Former Current packs/day: 0.00 Types: Cigarettes Quit date: 12/05/1977 Years since quittin.1 Smokeless tobacco: Never Vaping Use Vaping status: Never Used Substance and Sexual Activity Alcohol use: No Drug use: No Sexual activity: Not on file Other Topics Concern Not on file Social History Narrative Not on file Social Drivers of Health Financial Resource Strain: Patient Declined (01/03/2025) Overall Financial Resource Strain (CARDIA) Difficulty of Paying Living Expenses: Patient declined Recent Concern: Financial Resource Strain - Medium Risk (12/03/2024) Received from [facility] Overall Financial Resource Strain (CARDIA) How hard is it for you to pay for the very basics like food, housing, medical care, and heating?: Somewhat hard Food Insecurity: Patient Declined (01/03/2025) Hunger Vital Sign Worried About Running Out of Food in the Last Year: Patient declined Ran Out of Food in the Last Year: Patient declined Transportation Needs: Patient Declined (01/03/2025) PRAPARE - Transportation Lack of Transportation (Medical): Patient declined Lack of Transportation (Non-Medical): Patient declined Stress: Patient Declined (01/03/2025) [employer] [place] [employer] - Occupational Stress Questionnaire Feeling of Stress : Patient declined Housing Stability: Patient Declined (01/03/2025) Housing Stability Vital Sign Unable to Pay for Housing in the Last Year: Patient declined Number of Times Moved in the Last Year: 0 Homeless in the Last Year: Patient declined Family History[4] Objective Temp: [97.6 ??F (36.4 ??C)] 97.6 ??F (36.4 ??C) Pulse: [84-94] 88 Resp: [16-28] 20 BP: (136-194)/(73-132) 140/89 Weight change: No intake or output data in the 24 hours ending 01/30/25 0349 Physical Exam Vitals and nursing note reviewed. Constitutional: Appearance: She is obese. HENT: Head: Normocephalic and atraumatic. Right Ear: External ear normal. Left Ear: External ear normal. Nose: Nose normal. Mouth/Throat: Pharynx: Oropharynx is clear. Eyes: Extraocular Movements: Extraocular movements intact. Cardiovascular: Rate and Rhythm: Normal rate and regular rhythm. Pulses: Normal pulses. Heart sounds: Murmur heard. Pulmonary: Effort: Pulmonary effort is normal. Breath sounds: Normal breath sounds. Abdominal: General: Bowel sounds are normal. Palpations: Abdomen is soft. Musculoskeletal: General: Normal range of motion. Cervical back: Normal range of motion. Right lower leg: Edema present. Left lower leg: Edema present. Skin: General: Skin is warm and dry. Capillary Refill: Capillary refill takes less than 2 seconds. Neurological: General: No focal deficit present. Mental Status: She is alert and oriented to person, place, and time. Psychiatric: Mood and Affect: Mood normal. Behavior: Behavior normal. Laboratory Data Recent Labs Component Name 01/30/25 0120 01/03/25 0231 01/02/25 1216 WBC 13.4* 12.2* 11.5* HGB 12.7 11.3* 12.3 HCT 41.2 35.5 39.1 PLTCOUNT 258 249 270 MCV 91.2 91.0 90.5 Recent Labs Component Name 07/26/23 2226 02/21/23 1830 02/17/23 1838 02/16/23 1220 02/06/23 1330 11/13/21 0107 11/12/21 1823 PT 14.2 13.2 12.7 - 25.7* 15.2* - INR 1.1 1.0 1.0 - 2.5* 1.2 - PTT - - - - 35.4 77.2* 70.9* - = values in this interval not displayed. Recent Labs Component Name 01/30/25 0150 01/06/25 0202 01/05/25 0700 08/09/24 1340 07/30/23 0128 04/03222506/16/23 0848 NA - - - - 136 141 135* POTASSIUM 4.2 4.1 3.9 - 4.4 3.9 3.7 CL - - - - 101 104 103 CO2 25 28 27 - 27 28 24 BUN 23 30* 38* - 20 13 14 CREATININE 1.03 1.02 1.33* - 0.67 0.63 0.63 - = values in this interval not displayed. Recent Labs Component Name 01/30/25 0150 01/06/25 0202 01/05/25 0700 08/09/24 1340 07/30/23 0128 03/24/23 2338 03/22/23 1028 03/20/23 0355 CALCIUM 9.5 9.7 10.0 - 9.4 - 9.8 8.8 PHOS - - - - 3.0 - 3.3 2.9 - = values in this interval not displayed. Recent Labs Component Name 01/30/25 0150 01/02/25 1216 08/09/24 1340 07/30/23 0128 07/26/236 06/16/23 0848 04/17/23 2059 03/24/23 2338 PROT - - - - 7.5 8.9* - 8.5* ALB - - - 2.9* 3.1* 3.5 - 3.3* ALKPHOS 76 70 68 - 74 82 - 77 AST 24 22 23 - 17 17 - 23 ALT 27 23 22 - 19 18 - 17 TBILI - - - - 0.5 0.6 - 0.4 - = values in this interval not displayed. Recent Labs Component Name 11/11/218 11/05/21 1350 TROPONINI <0.010 <0.010 Recent Labs Component Name 02/22/23 0759 [facility] 14.6 Microbiology Results (Displays last 21 days for this encounter ONLY) No results found for the last 504 hours. Imaging No results found. Assessment and Plan The patient's active hospital problems include: Chronic back pain (POA: Yes) Chronic anticoagulation (POA: Yes) Essential hypertension (POA: Yes) LUL (obstructive sleep apnea) (POA: Yes) Type 2 diabetes mellitus without complication (CMS/HCC) (POA: Yes) Weakness (POA: Yes) Breast cancer (HCC) (POA: Yes) Morbid obesity (HCC) (POA: Yes) Polymyositis (HCC) (POA: Yes) Edema, unspecified type (POA: Yes) SOB (shortness of breath) (POA: Yes) Plan: Shortness of Breath Edema Acute on Chronic CHF Presented with increased SOB; BLE edema; orthopneia, fatigue. Trops negative. ProBNP 156. TSH 1.984 WBC 13.4; intermittent dry cough.TTE showed EF 60-65%. G1DD. Stress test negative for ischemia. CXRresults pending. Unlikely PE based on clinical presentation and pt on Xarelto for hx of PE and DVTs. -Oxygen therapy prn to keep sp02 >92% -Lasix 20mg IV BID; monitor electrolytes when diuresing -strict intake and output -daily wts -fluid restriction -Cardiac/2gm Na/Diabetic diet -Cardiology consult ordered; please notify in am -Iron panel and ferritin ordered HTN: Uncontrolled, BP range 130-160s/70-100s; missed HS bp meds and pain meds; BP improved 130/80s with pain med. -Pain mgmt prn -Continue losartan -Routine VS monitor BP T2DM Morbid obesity: Gluc 359; uncontrolled; recently increased steroid dose. Hgba1c 9.3, eAG 220 -Hgba1c ordered -Blood glucose monitoring ACHS -Longacting and SSI ordered -Diabetic diet ordered -Instructional Materials Director consult ordered for uncontrolled glucose Polymyositis: -Follows with outpatient rheumatology; seen 01/08/25; -Increased prednisone to 20mg since this visit; continue steriods -Started on methotrexate 15mg weekly, folic acid 1mg daily; continue -monitor inflammatory markers; ESR and CRP ordered Sore throat Possible thrush: Reported sore mouth and throat with eating and drinking since the medications; states feels like sore throat; no sick contacts. No white plaques noted; Erythema present. -Nystatin swish and swallow QID -Rapid strep ordered to r/o LUL: Complaint with home CPAP; Continue CPAP at HS; home setting 12 Chronic back pain: Continue oxycodone Generalized weakness/Debility: PT/OT eval and treat Hx of PE/DVT on chronic anticoagulation: continue xarelto/aspirin Hx of breast cancer: Followed by outpatient oncology; last seen 01/07/25. Yearly reclast x3 years. continue Aromasin. Diet: DIET CONS CARB CARDIAC DVT Prophylaxis: Rivaroxaban Code Status: Full Code Medical Decision Maker: self/ pt Estimated Date of Discharge: 01/31/25 Time spent: 67 minutes, including a total of face to face time, family discussion, reviewing nursing and retirement sales consultant notes, labs and imaging, discussing/coordinating care with the care team, and documentation. Jayla Bettencourt, DRILLER PORTABLE-LIVESTOCK SPECULATOR 01/30/2025 3:49 AM [1] Past Medical History: Diagnosis Date Breast cancer (HCC) Chest pain DVT (deep venous thrombosis) (HCC) GERD (gastroesophageal reflux disease) LLU (obstructive sleep apnea) w cpap Other pulmonary embolism without acute cor pulmonale (HCC) rls Type 2 diabetes mellitus without complications (HCC) [2] Past Surgical History: Procedure Laterality Date Arthroplasty [...] THE BATTERY IN THE LOWER LUMBAR REGION [3] Allergies Allergen Reactions Latex Rash Ceftriaxone Anaphylaxis and Shortness of Breath R Cephalosporins Anaphylaxis and Shortness of Breath Trazodone Anaphylaxis and Other Shaky, restlessness, itching, throat swelling Contrast-Iodinated Agents For Ct/Other Rash Levofloxacin Urticaria and Skin Reactions Macrobid [Nitrofurantoin] Rash Lisinopril Swelling Ketorolac Itching Pregabalin Other Adhesive Sensitivity Rash Amlodipine Base Swelling Leg swelling Leg swelling Piperacillin-Tazobactam In D5w Rash Spironolactone Nausea and/or Vomiting, Fever and Headache Pt states she doesn't want to take this medication anymore Bactrim [Sulfamethoxazole W-Trimethoprim] Vomiting Reslizumab Unknown Skin Adhesives Skin Reactions [4] Family History Problem Relation Name Age of Onset Heart Disease Mother Diabetes Mother Cancer Father Hemochromatosis Father Cancer Sister Heart Disease Brother Cosigned by Drew Calero MD at 01/31/2025 6:20 AM CDT documented in this encounter Consult Notes * Remi Sterling - 02/02/2025 11:29 AM CDTAssociated Order(s): IP CONSULT TO PASTORAL CARE 02/02/25 1100 Visit Type Assessment Date 02/02/25 Pastoral Care Reason for Visit Order Response Pastoral Care Visit Type(s) Order Response Encounter Type Patient Spiritual History Belief System Significant Community Very Involved in [place] Community;Family and Friends Support Spiritual Assessment Spiritual Assessment Peaceful Interventions Pastoral Care Conversation;Reflective Listening Plan/Outcome Plan Follow-up Available by Request Outcomes Feelings/Concerns Expressed;Gratitude Expressed Pt seemed calm at the time of this visit. Pt identifies as mormonism and expressed that family dynamics is supportive for emotional and spiritual well- being. Pt reflected on illness journey, missy connection and family dynamics. Pt expressed that she is missing home. Team Sports Sales Associate provided conversation, empathic listening, afffirmation and encouragement. Remi Sterling, Certified Surgical Tech/First Assistant ASCOM: [id number] Outside: [phone] For more urgent needs, please page at the appropriate pager number below. [facility] Pastoral [facility] pager - Call [phone] (Mon-Fri: 7AM - 4PM and Sun 7AM - 3PM). PastoralCare vision impaired teacher pager - Call [phone] (outside of the times listed above) and enter a 10 digit call back number. Please allow the vision impaired teacher head well puller 30 minutes to arrive to the hospital. * Brigitte Almendarez RN - 01/30/2025 1:51 PM CDTAssociated Order(s): IP CONSULT TO BASE FILLER OPERATOR Inpatient Diabetes Education: Consult/Progress Note Date: 01/30/2025 Consult received for uncontrolled glucose. Chart reviewed. Karly Marques is a 69 year old female admitted with acute on chronic CHF exacerbation. The pt was very pleasant, engaged, and receptive to DM education during this visit. Positive history of DM2 for 10+ yrs. Family hx of DM with mother. PMHx includes DM2, DVT/PE, breast CA s/p bilateral mastectomy, LUL, GERD, RLS, HTN, HLD, CHF, morbid obesity (BMI 53), polymyositis (on chronic steroids), and arthritis. HbA1C and BG: Most recent HbA1C on 01/02/25 was 9.3%; set goal to lower HbA1C to <7%. This result is an increase from pt's previous result of 8.6% on 12/25/22. BG at presentation was 359 mg/dL and has ranged from 190 to 359 mg/dL so far during this admission. The pt is experiencing steroid-inducedhyperglycemia both as an IP and as an OP. 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 [x] Dental care [x] Pt is in need of a dental exam [x] Pt last had a dental exam in 2023. [x] Reviewed proper diabetic foot care [x] The pt reports feet WDL with no current wounds. [x] The pt endorses peripheral neuropathy in feet. [x] HbA1c [x] Target glucose ranges/at least 70% TIR between 70-180 mg/dL, per ADA guidelines/MD Communication about BG [x] Glucose monitoring/Reviewed target BG ranges & the importance of staying within target ranges as often as possible for better overall health/to prevent future risks of complications from hyperglycemia. [x] Review [x] Reports plenty of supplies & refills [x] The pt checks BG often using CGM device. [x] CGM: Freestyle Eileen 2 [x] Hypoglycemia: Causes, prevention, symptoms, treatment [x] Frequency of hypoglycemia: not frequently since using steroids [x] Hyperglycemia: Causes, prevention, symptoms, treatment [x] Sick Day Guidelines [x] Basic healthy eating guidelines for diabetes/Diabetes plate method [x] Discussed the importance of healthy eating as part of DM self-management. [x] The pt had a nutrition consult today. [x] Oral Medications: Purpose/timing/precautions/MOA/possible side effects [x] Insulin [x] Pen device [x] Insulin SubQ site, selection and rotation [x] Site used: abd, arms F/u required?: No [x] Pt follows with endocrinology as an OP: yes, Dr. Rod in [place] [x] Recommend Follow Up Outpatient Diabetes Education Visit (requires MD order) Level of engagement during this visit: Good Level of understanding: Good Additional notes: The pt is interested in an insulin pump. D/w pt possible advantages. Encouraged her to d/w OP interior surface insulation worker. Pt verbalized understanding of today's DM education. All pt questions answered. Pt denies further concerns at this time. DM education folder left with pt. Pt encouraged to call with any questions. Thank you for the opportunity to participate in your patient's care. LABS Recent Labs Component Name 01/02/25 1216 HGBA1C 9.3* Admitting Blood Glucose: Blood Sugar Range Past 24 hours: No data recorded No data found. Brigitte Almendarez RN, MSN, MAEd, CDCES, CNL Diabetes Education ASCOM: [id number] Office: [phone] * Gil Perrin MD - 01/30/2025 10:42 AM CDTAssociated Order(s): IP CONSULT TO CARDIOLOGY Karly Marques :1955 AGE:[id number] year old [facility] Cardiology Consult Reason for Consult: CHF? HPI: Karly Winston Marques is a/an 69 year old Relevant past with history of breast cancer status post bilateral mastectomy, PMR versus polymyositis, DVT/ PE, GERD, LUL, type 2 diabetes mellitus, morbid obesity, chronic back pain status post neurostimulator, and history of chronic HFpEF who is currently admitted to the hospital with recurrent lower extremity swelling, shortness of breath, fatigue, and other various symptoms. Cardiology was consulted to weigh in on if overall presentation is related to CHF, steroids, and/or something else. The patient reports some improvement in rheumatologic symptoms on combination of methotrexate and steroids. However, she has had increase in fluid retention with associated shortness of breath. Cardiac workup thus far demonstrates normal NT pro BNP level, but chest x-ray does demonstrate evidence of pulmonary vascular congestion Past Medical History: Diagnosis Date Breast cancer (HCC) Chest pain DVT (deep venous thrombosis) (HCC) GERD (gastroesophageal reflux disease) LUL (obstructive sleep apnea) w cpap Other pulmonary embolism without acute cor pulmonale (HCC) rls Type 2 diabetes mellitus without complications (HCC) Past Surgical History: Procedure Laterality Date Arthroplasty [...] THE BATTERY IN THE LOWER LUMBAR REGION Prior to Admission Medications Prescriptions Last Dose Informant Patient Reported? Taking? Benzocaine-Menthol (throat lozenge) No No Sig: Take 1 (one) lozenge by mouth every 2 hours as needed for Sore Throat Continuous Blood Gluc Sensor (FreeStyle Eileen 2 Sensor Systm) [facility] [place] Yes No Sig: APPLY 1 SENSOR AND WEAR FOR 14 DAYS TO CHECK BLOOD SUGAR HumaLOG KwikPen 100 UNIT/ML pen 01/29/2025 No Yes Sig: Inject 6 (six) Units subcutaneously 3 times daily before meals Patient taking differently: Inject 28 (twenty eight) Units subcutaneously 3 times daily before meals Pt states she takes 28 units + a SSI with each meal Lancets (ONETOUCH DELICA PLUS 33G EXTRA FINE LANCET) Patient Yes No Sig: USE FOUR TIMES DAILY Multiple Vitamins-Minerals (Multivitamin Womens 50+ Adv) TABS Patient Yes No Sig: Take 1 tablet by mouth once daily ONETOUCH ULTRA test strip Patient Yes No Si times daily acetaminophen (Tylenol) 500 MG tablet No No Sig: Take 1 (one) tablet by mouth every 4 hours as needed Maximum allowable Acetaminophen amount = 4 Grams (4000 mg) / 24 hours. albuterol HFA (Proventil; Ventolin; Proair) 108 (90 Base) MCG/ACT inhaler Patient Yes No Sig: Inhale 2 (two) puffs by mouth every 6 hours as needed aspirin (Aspirin) 81 MG chew tablet No No Sig: Take 1 (one) tablet by mouth once daily (chew and swallow) atorvastatin (Lipitor) 40 MG tablet No No Sig: Take 1 (one) tablet by mouth at bedtime benzonatate (Tessalon) 100 MG capsule No No Sig: Take 1 (one) capsule by mouth 3 times daily as needed for Cough diclofenac sodium (Voltaren) 1 % gel No No Sig: Apply 2 (two) g to affected area 4 times daily diphenhydrAMINE (Benadryl) 25 MG capsule No No Sig: Take 1 (one) capsule by mouth every 6 hours as needed for Itching empagliflozin (Jardiance) 10 MG tablet No No Sig: Take 1 (one) tablet by mouth once daily exemestane (AROMASIN) 25 MG tablet Patient No No Sig: Take 1 (one) tablet by mouth DAILY furosemide (Lasix) 20 MG tablet Patient Yes No Sig: Take 1 (one) tablet by mouth once daily gabapentin (Neurontin) 300 MG capsule Patient Yes No Sig: Take 1 (one) capsule by mouth 3 times daily ibuprofen (Motrin) 200 MG tablet No No Sig: Take 1 (one) tablet by mouth every 6 hours as needed insulin glargine (Lantus SoloStar) pen 01/29/2025 Morning No Yes Sig: Inject 20 (twenty) Units subcutaneously once daily Patient taking differently: Inject 45 (forty five) Units subcutaneously once daily insulin pen needle (B-D ULTRAFINE III SHORT PEN) 31G X 8 MM needle Patient No No Si times daily naloxone HCl (Narcan) 4 MG/0.1ML nasal spray Patient Yes No ondansetron, disintegrating, (Zofran ODT) 4 MG tablet Patient No No Sig: Take 1 (one) tablet by mouth every 6 hours as needed for Nausea/Vomiting Allow tablet to dissolve on the tongue oxyBUTYnin CR 24hr (Ditropan XL) 15 MG tablet Patient No No Sig: Take 1 (one) tablet by mouth once daily oxyCODONE-acetaminophen (Percocet) 10-325 MG tablet No No Sig: Take 1 (one) tablet by mouth every 4 hours as needed pantoprazole EC (Protonix) 40 MG tablet Patient Yes No Sig: Take 1 (one) tablet by mouth once daily polyethylene glycol 3350 (Miralax) 17 g packet No No Sig: Take 17 (seventeen) g by mouth once daily predniSONE (Deltasone) 10 MG tablet No No Sig: Take 1 (one) tablet by mouth daily with breakfast rOPINIRole (REQUIP) 5 MG tablet Patient Yes No Sig: TAKE 1 TABLET BY MOUTH EVERY NIGHT rivaroxaban (Xarelto) 20 MG tablet Patient Yes No Sig: Take 1 (one) tablet by mouth daily with breakfast Reasons: Blockage of Blood Vessel to Lung bya Particle, Blood Clot in a Deep Vein senna-docusate (Senokot-S) 8.6-50 MG tablet No No Sig: Take 1 (one) tablet by mouth once daily valsartan (Diovan) 80 MG tablet No No Sig: Take 1 (one) tablet by mouth once daily Facility-Administered Medications: None Allergies[1] Social History[2] Family History Problem Relation Name Age of Onset Heart Disease Mother Diabetes Mother Cancer Father Hemochromatosis Father Cancer Sister Heart Disease Brother Review of Systems Constitutional: negative for fevers, chills, and malaise, no recent weight loss +fatigue Eyes: negative for visual disturbance, irritation and redness ENT: negative for ear drainage, earaches, nasal congestion and epistaxis Respiratory: + shortness of breath. No cough, wheeze Cardiovascular: denies chest pain, palpitations. + swelling, PND, orthopnea Gastrointestinal: denies abdominal pain or constipation/diarrhea Genitourinary: denies changes in urinary frequency/urgency Hematologic/lymphatic: negative for easy bruising, bleeding and petechiae Musculoskeletal: negative for arthralgias, myalgias. + leg tenderness Neurological: denies headache, numbness/tingling, syncope Psych: denies SI/HI, depression, anxiety Skin: no new rashes, ulcers, or lesions Objective: Patient Vitals for the past 24 hrs: Temp Pulse Resp BP 01/30/25 0934 -- 77 -- -- 01/30/25 0727 97.5 ??F (36.4 ??C) 85 20 138/76 01/30/25 0409 97.8 ??F (36.6 ??C) 82 20 (!) 160/102 01/30/25 0330 -- 88 20 140/89 01/30/25 0300 -- 85 20 136/73 01/30/25 0230 -- 94 16 -- 01/30/25 0200 -- 85 22 (!) 192/132 01/30/25 0131 -- 86 28 (!) 186/126 01/30/25 0127 -- 85 24 (!) 194/100 01/30/25 0042 97.6 ??F (36.4 ??C) 84 18 (!) 191/101 No intake or output data in the 24 hours ending 01/30/25 1043 Physical exam: Constitutional: Pleasant, well appearing in no distress. Skin: Warm, dry. No rashes in visible areas Eye: Conjunctiva clear. Pupil equal round and reactive ENMT: Lips without lesion. Good dentition. Oropharynx clear Neck: Thick neck, no definitive JVD Respiratory: Lungs clear b/l with no rales or wheezing. Unlabored. Cardiovascular: RRR, s1s2nl, +systolic murmurs. +BLE edema. Abdomen: Soft abd, non-tender, normal bowel sounds, no masses. No HSM. Psych: Alert, oriented to person, place, time. Normal affect MSK: normal muscle tone Neuro: CN 2-12 intact, no focal deficits on cursory exam Chest Wall: nontender to palpation EKG: obtained this hospitalization demonstrate normal sinus rhythm, normal axis, normal intervals, no pathologic Q or ST abnormalities. Normal ECG Data Review Recent Labs Component Name 01/30/25 0150 01/06/25 0202 01/05/25 0700 01/03/25 0231 01/02/25 1216 08/09/24 1340 SODIUM 140 137 139 - 141 136 POTASSIUM 4.2 4.1 3.9 - 3.6 3.9 CHLORIDE 104 101 102 - 105 103 CO2 25 28 27 - 27 24 BUN 23 30* 38* - 18 19 CREATININE 1.03 1.02 1.33* - 0.78 0.82 GLUCOSE 359* 161* 201* - 166* 212* CALCIUM 9.5 9.7 10.0 - 9.7 9.4 ALT 27 - - - 23 22 ALKPHOS 76 - - - 70 68 AST 24 - - - 22 23 TBIL 0.6 - - - 0.8 0.9 TPROT 7.7 - - - 7.7 8.0 EGFR 59* 60* 44* - 83* 78* ALBUMIN 3.7 - - - 3.8 3.3* - = values in this interval not displayed. Recent Labs Component Name 01/30/25 0120 01/03/25 0231 01/02/25 1216 WBC 13.4* 12.2* 11.5* HGB 12.7 11.3* 12.3 HCT 41.2 35.5 39.1 PLTCOUNT 258 249 270 Recent Labs Component Name 01/30/25 0150 TSH 1.984 Recent Labs Component Name 01/02/25 1216 12/25/22 0356 10/31/21 1155 HGBA1C 9.3* 8.6* 7.8* EAG 220 200 177 Recent Labs Component Name 01/02/25 1216 08/09/24 1340 06/16/23 1528 BNP 46 29 15 Recent Labs Component Name 11/11/21 2238 11/05/21 1350 TROPONINI <0.010 <0.010 Recent Labs Component Name 01/30/25 0242 01/30/25 0120 01/02/25 1337 TROPIHS 10 9 24* Imaging: chest x-ray image personally reviewed demonstrating borderline cardiac silhouette, mild pulmonary vascular congestion, and evidence of neurostimulator Echo: Last obtained December 03, 2024 demonstrate normal biventricular systolic function, evidence ofdiastolic dysfunction with EA reversal an elevated E to E prime ratio suggestive of elevated left atrial filling pressure, mild valvular heart disease including and TR Stress Test: nuclear study January 06, 2025 unremarkable Readmission Risk Score: If there is no SHEAR GRINDER OPERATOR Total Score indicated, this patient has yet to be assessed for Readmission Risk or the BNA Score was < 10. If the patient has been assessed, the score is: MEDICATIONS FOR CURRENT ENCOUNTER: SCHEDULED MEDICATIONS: 0.9% NaCl injection 3 mL, Intracatheter, q8h 0.9% NaCl injection 3 mL, Intracatheter, q8h aspirin chew tablet 81 mg, Oral, QDAY atorvastatin (Lipitor) tablet 40 mg, Oral, AT BEDTIME furosemide (Lasix) injection 20 mg, Intravenous, BID insulin aspart (NovoLOG) pen 0-18 Units, Subcutaneous, TID WC insulin aspart (NovoLOG) pen 0-7 Units, Subcutaneous, AT BEDTIME insulin glargine (Lantus) pen 26 Units, Subcutaneous, AT BEDTIME nystatin (Mycostatin) suspension 5 mL, Swish and Swallow, 4X/day predniSONE (Deltasone) tablet 20 mg, Oral, QDAY WITH BREAKFAST rivaroxaban (Xarelto) tablet 20 mg, Oral, QDAY WITH BREAKFAST valsartan (Diovan) tablet 80 mg, Oral, QDAY [COMPLETED] furosemide (Lasix) injection 20 mg, Intravenous, Now [COMPLETED] HYDROcodone-acetaminophen ([place]) 10-325 MG tablet 1 tablet, Oral, Once CONTINUOUS MEDICATIONS: Readmission Risk Score: The Basic Needs Assessment (BNA) total score for this patient was calculated at . Patients with BNAgreater than or equal to 10 are considered at high risk for readmission. Impression/Plan: 1. Acute on chronic HFpEF - aha C, NYHA 3, volume up 2. Underlying polymyositis versus PMR - reason for chronic steroid prescription 3. Type 2 diabetes mellitus - management per primary service, but see below 4. Morbid obesity 5. Obstructive sleep apnea 6. History of pulmonary embolism 7. Essential hypertension - Suspect that steroids as root cause for fluid retention/volume overload as well as hyperglycemia. Unfortunately, steroids, will need to be continued likely for a long time frame. - provide patient with IV Lasix 40 mg b.I.d. for today, then reassess IV Lasix requirements tomorrow -monitor strict I/O, daily standing weight, daily metabolic panel while hospitalized - insulin management per primary service -recommend outpatient evaluation for G LP 1 analog given presence of diabetes, LUL, morbid obesity - resuming home Jardiance 10 mg daily - no plans to add spironolactone given prior intolerance of medication in the past (see allergy list). - plan to add additional antihypertensive therapy if BP consistently > 130/80 mm Hg -while hospitalized monitor on telemetry and maintain electrolytes K > 4, Mag > 2 Thank you for including us in the care of your patient. Do not hesistate to call if there are any further questions. Gil Perrin MD [facility] ASCOM: [1] Allergies Allergen Reactions Latex Rash Ceftriaxone Anaphylaxis and Shortness of Breath R Cephalosporins Anaphylaxis and Shortness of Breath Trazodone Anaphylaxis and Other Shaky, restlessness, itching, throat swelling Contrast-Iodinated Agents For Ct/Other Rash Levofloxacin Urticaria and Skin Reactions Macrobid [Nitrofurantoin] Rash Lisinopril Swelling Ketorolac Itching Pregabalin Other Adhesive Sensitivity Rash Amlodipine Base Swelling Leg swelling Leg swelling Piperacillin-Tazobactam In D5w Rash Spironolactone Nausea and/or Vomiting, Fever and Headache Pt states she doesn't want to take this medication anymore Bactrim [Sulfamethoxazole W-Trimethoprim] Vomiting Reslizumab Unknown Skin Adhesives Skin Reactions [2] Social History Socioeconomic History Marital status: Tobacco Use Smoking status: Former Current packs/day: 0.00 Types: Cigarettes Quit date: 12/05/1977 Years since quittin.1 Smokeless tobacco: Never Vaping Use Vaping status: Never Used Substance and Sexual Activity Alcohol use: No Drug use: No documented in this encounter ED Notes * Rosie Alex RN - 01/30/2025 3:47 AM CDT Report given to Nathan LAWLER ascom [id number] * Rosie Alex RN - 01/30/2025 3:39 AM CDT [facility] ED RN/COST SPECIALIST to Floor Nursing Report Arrival Information: Chief Complaint and living arrangements: Karly Marques is a 69 year old year old female that arrived with a Chief Complaint of Swelling Leg . Code Status: Prior. Orientation status: A&O x 4 The patient came from home and lives with self. Patient condition/situation: stable Floor nurse information: Direct ED RN Phone Number: #[phone] Does the ED Nurse need to speak to IP nurse before transfer to floor: No Level of Care Ordered:Cardiac Tele Patient Information: Admitting Provider: Drew Calero MD Admit/Diagnosis: SOB (shortness of breath) (R06.02); Edema, unspecified type (R60.9) Critical Information: stable on room air, IV 20 g right AC, on purewick, generalized weakness ->SBA-x1 assist Safety Concerns: fall risk, uses cane at baseline Isolation: No active isolations Patient Status: Ambulation Status: Karly Marques assistance needs is reported by nurse as cane and supervision Oxygen Status: She is currently on Oxygen Therapy SpO2: 94 % Oxygen Therapy: None (Room air) $ O2 DEVICE: Room Air. IV/Drain: Peripheral IV Anterior;Proximal;Right Forearm (Active) Placement Date/Time: 01/30/25115 Size (Gauge): 20 G Orientation: Anterior;Proximal;Right Location: Forearm Site Prep: Chlorhexidine Technique: Anatomical Landmarks Insertion attempts (FOR ED ONLY):1 Number of days: 0 External Urinary Catheter 01/30/25307 (Active) Placement Date/Time: 01/30/25307 Number of days: 0 Vital Signs & Rhythm: Patient Vitals for the past 6 hrs: Temp Pulse Resp BP BP Method 01/30/25 0300 -- 85 20 136/73 -- 01/30/25 0230 -- 94 16 -- -- 01/30/25 0200 -- 85 22 (!) 192/132 -- 01/30/25 0131 -- 86 28 (!) 186/126 -- 01/30/25 0127 -- 85 24 (!) 194/100 -- 01/30/25 0042 97.6 ??F (36.4 ??C) 84 18 (!) 191/101 Automatic Neuro: Best Eye Opening: Spontaneous (01/30/2599) Best Verbal Response: Oriented (01/30/2599) Best Motor Response: Obeys commands (01/30/2599) Namita Coma Scale Score: 15 (01/30/2599) Medications: ED Medications (Ordered / Administered: Medications 0.9% NaCl injection 3 mL (has no administration in time range) And 0.9% NaCl injection 1-10 mL (has no administration in time range) valsartan (Diovan) tablet 80 mg (80 mg Oral $ Given 01/30/25302) furosemide (Lasix) injection 20 mg (20 mg Intravenous $ Given 01/30/25302) HYDROcodone-acetaminophen ([place]) 10-325 MG tablet 1 tablet (1 tablet Oral $ Given 01/30/25302) Medications[1] Ancillary Testing: Labs: This only details any ABNORMAL finding's in the emergency department from this encounter. Abnormal Labs Reviewed CBC W AUTO DIFFERENTIAL - Abnormal; Notable for the following components: Result Value WBC 13.4 (*) MCHC 30.8 (*) Neutrophil % 74.9 (*) Neutrophil Absolute 10.06 (*) All other components within normal limits COMPREHENSIVE METABOLIC PANEL - Abnormal; Notable for the following components: Glucose 359 (*) eGFR by CKD-EPI 59 (*) All other components within normal limits Outstanding Labs / Diagnostics: Unresulted Labs (From admission, onward) None Radiology Report: No image results found. No results found. Wet Read: XR Chest 1Vw Portable (Results Pending) Mode of Transportation Wheelchair Some information from this note is pulled from [employer] and not added by the note creator every effort has been made to ensure accuracy however as [facility] updates this note will not update once signed. [1] * Rosie Alex RN - 01/30/2025 3:08 AM CDT Pt placed on purewick at this time * Rosie Alex RN - 01/30/2025 1:48 AM CDT Lab to add on NT-pro BNP * Patsy Hill MD - 01/30/2025 1:44 AM CDT Karly Sykesrangel [id number] ER AT [facility] [place] History Chief Complaint Patient presents with Swelling Leg 69-year-old female with a history of chronic heart failure with a preserved ejection fraction, obesity, obstructive sleep apnea, PE/DV on Xarelto, polymyositis, diabetes mellitus presenting with complaints of bilateral leg swelling and SOB that has worsened over the last 24-48 hours. She states sheis getting short of breath with minimal activity such as walking to the bathroom. She denies any chest pain. Denies any abdominal pain or nausea or vomiting. States she just has not been feeling well. She states she has taken all of her medications except her valsartan because she typically takes it at night. She states it also feels like her face is getting a little bit swollen and this is happened before when she has had heart failure issues. Past Medical History[1] Past Surgical History[2] Family History[3] Social History Socioeconomic History Marital status: Spouse name: Not on file Number of children: Not on file Years of education: Not on file Highest education level: Not on file Occupational History Not on file Tobacco Use Smoking status: Former Current packs/day: 0.00 Types: Cigarettes Quit date: 12/05/1977 Years since quittin.1 Smokeless tobacco: Never Vaping Use Vaping status: Never Used Substance and Sexual Activity Alcohol use: No Drug use: No Sexual activity: Not on file Other Topics Concern Not on file Social History Narrative Not on file Social Drivers of Health Financial Resource Strain: Patient Declined (01/03/2025) Overall Financial Resource Strain (CARDIA) Difficulty of Paying Living Expenses: Patient declined Recent Concern: Financial Resource Strain - Medium Risk (12/03/2024) Received from [facility] Overall Financial Resource Strain (CARDIA) How hard is it for you to pay for the very basics like food, housing, medical care, and heating?: Somewhat hard Food Insecurity: Patient Declined (01/03/2025) Hunger Vital Sign Worried About Running Out of Food in the Last Year: Patient declined Ran Out of Food in the Last Year: Patient declined Transportation Needs: Patient Declined (01/03/2025) PRAPARE - Transportation Lack of Transportation (Medical): Patient declined Lack of Transportation (Non-Medical): Patient declined Stress: Patient Declined (01/03/2025) [employer] [place] [employer] - Occupational Stress Questionnaire Feeling of Stress : Patient declined Housing Stability: Patient Declined (01/03/2025) Housing Stability Vital Sign Unable to Pay for Housing in the Last Year: Patient declined Number of Times Moved in the Last Year: 0 Homeless in the Last Year: Patient declined Review of Systems Review of Systems Constitutional: Negative for chills and fever. Respiratory: Positive for shortness of breath. Cardiovascular: Positive for leg swelling. Negative for chest pain. Gastrointestinal: Negative for abdominal pain, nausea and vomiting. Genitourinary: Negative for dysuria. Neurological: Negative for headaches. All other systems reviewed and are negative. Physical Exam BP 136/73 Pulse 85 Temp 97.6 ??F (36.4 ??C) (Oral) Resp 20 Ht 1.549 m (5' 1) Wt 128.4 kg(283 lb) SpO2 94% BMI 53.47 kg/m?? Physical Exam Vitals and nursing note reviewed. Constitutional: Appearance: She is obese. HENT: Head: Normocephalic and atraumatic. Right Ear: External ear normal. Left Ear: External ear normal. Eyes: Conjunctiva/sclera: Conjunctivae normal. Cardiovascular: Rate and Rhythm: Normal rate and regular rhythm. Heart sounds: Murmur heard. Pulmonary: Effort: Pulmonary effort is normal. Comments: Decreased breath sounds at the bases Abdominal: Palpations: Abdomen is soft. Tenderness: There is no abdominal tenderness. There is no guarding or rebound. Musculoskeletal: Cervical back: Normal range of motion and neck supple. Right lower leg: Edema present. Left lower leg: Edema present. Skin: General: Skin is warm and dry. Neurological: Mental Status: She is alert and oriented to person, place, and time. Medications Medications[4] Procedures Procedures Lab Interpretation Oxygen Saturation Interpretation Hospital Encounter on 01/30/25 CBC W AUTO DIFFERENTIAL Result Value Ref Range WBC 13.4 (H) 4.0 - 10.7 x10E9/L RBC Count 4.52 3.90 - 5.20 x10E12/L Hemoglobin 12.7 11.9 - 15.8 g/dL Hematocrit 41.2 34.8 - 46.1 % MCV 91.2 80.0 - 98.0 fL MCH 28.1 26.7 - 33.6 pg MCHC 30.8 (L) 31.7 - 36.3 g/dL RDW-CV 14.0 11.3 - 14.8 % Platelet Count 258 150 - 420 x10E9/L MPV 9.9 7.8 - 11.4 fL Neutrophil % 74.9 (H) 41.0 - 74.0 % Lymphocyte % 19.2 17.0 - 47.0 % Monocyte % 5.1 3.0 - 11.0 % Eosinophil % 0.3 0.0 - 7.0 % Basophil % 0.2 0.0 - 1.6 % Immature Granulocytes % 0.3 0.0 - 1.0 % Neutrophil Absolute 10.06 (H) 1.60 - 7.50 x10E9/L Lymphocyte Absolute 2.58 1.00 - 4.40 x10E9/L Monocyte Absolute 0.69 0.15 - 1.00 x10E9/L Eosinophil Absolute 0.04 0.00 - 0.60 x10E9/L Basophil Absolute 0.03 0.00 - 0.13 x10E9/L COMPREHENSIVE METABOLIC PANEL Result Value Ref Range Glucose 359 (H) 70 - 99 mg/dL Sodium 140 136 - 145 mmol/L Potassium 4.2 3.5 - 5.1 mmol/L Chloride 104 98 - 107 mmol/L CO2 25 22 - 29 mmol/L Calcium 9.5 8.4 - 10.4 mg/dL Anion Gap 11 6 - 16 mmol/L BUN 23 7 - 26 mg/dL Creatinine 1.03 0.50 - 1.20 mg/dL Alkaline Phosphatase 76 40 - 150 U/L ALT 27 6 - 57 U/L AST 24 10 - 48 U/L Protein Total 7.7 6.4 - 8.3 gm/dL Albumin 3.7 3.1 - 4.5 gm/dL Bilirubin Total 0.6 0.2 - 1.2 mg/dL eGFR by CKD-EPI 59 (L) >=90 mL/min/1.73 m2 TROPONIN-I HIGH SENSITIVE BASELINE + 1HR Result Value Ref Range Troponin I High Sensitive 9 <=14 ng/L TROPONIN-I HIGH SENSITIVE REFLEX 1HOUR Result Value Ref Range Troponin I High Sensitive 10 <=14 ng/L Delta Troponin I HS 1 <6 ng/L NT-PRO BNP Result Value Ref Range NT-proBNP 156.9 <900.0 pg/mL TSH REFLEX FREE T4 Result Value Ref Range TSH 1.984 0.350 - 4.940 uIU/mL XR Chest 1Vw Portable (Results Pending) Progress Notes ED Course ED Course as of 01/30/25 0333 Valeri Jan 30, 2025 0154 CBC W AUTO DIFFERENTIAL(!): WBC 13.4(!) RBC 4.52 Hemoglobin 12.7 Hematocrit 41.2 MCV 91.2 MCH 28.1 MCHC 30.8(!) RDW-CV 14.0 Platelet Count 258 MPV 9.9 Neutrophils % 74.9(!) Lymphocytes % 19.2 Monocytes % 5.1 Eosinophils % 0.3 Basophils % 0.2 Immature Grans 0.3 Neutrophil Absolute 10.06(!) Lymphocytes Absolute 2.58 Absolute Monocytes 0.69 Eosinophils Absolute 0.04 Absolute Basophils 0.03 White blood cell count of 13.4 and patient is on prednisone 20 mg so this is likely the reason. Hemoglobin normal at 12.7 [GJ] 0154 TROPONIN-I HIGH SENSITIVE BASELINE + 1HR: Troponin I High Sensitive 9 Initial troponin unremarkable at 9 [GJ] 0224 COMPREHENSIVE METABOLIC PANEL(!): Glucose 359(!) Sodium 140 Potassium 4.2 Chloride 104 CO2 25 Calcium 9.5 Anion Gap 11 BUN 23 Creatinine 1.03 Alkaline Phosphatase 76 ALT 27 AST 24 Protein Total 7.7 Albumin 3.7 Bilirubin Total 0.6 eGFR 59(!) Glucose 359 and patient is on prednisone with a history of diabetes mellitus. No evidence of DKA with normal anion gap and normal bicarb [GJ] 0224 COMPREHENSIVE METABOLIC PANEL(!): Glucose 359(!) Sodium 140 Potassium 4.2 Chloride 104 CO2 25 Calcium 9.5 Anion Gap 11 BUN 23 Creatinine 1.03 Alkaline Phosphatase 76 ALT 27 AST 24 Protein Total 7.7 Albumin 3.7 Bilirubin Total 0.6 eGFR 59(!) Normal creatinine. No elevation of liver enzymes [GJ] 0224 XR Chest 1Vw Portable One-view portable chest x-ray. Preliminary read by me. Some vascular prominence noted. No infiltrate [GJ] 0233 NT-PRO BNP: NT-proBNP 156.9 Pro-BNP not elevated [GJ] 0233 TSH REFLEX FREE T4: TSH 1.984 TSH within normal limits [GJ] 0246 Patient given Lasix 20mg IV [GJ] 0249 Patient requesting something for her chronic pain and she does take [place] 10 mg at home per the patient, this will be ordered. [GJ] 0320 Repeat blood pressure is improved to 136/73 [GJ] 0320 TROPONIN-I HIGH SENSITIVE REFLEX 1HOUR: Troponin I High Sensitive 10 Delta Troponin I HS 1 Repeat troponin is 10. This is less likely to be ACS [GJ] 0320 With the patient stating that she is short of breath enough that she is unable to get to the bathroom without feeling short of breath and that this is acutely different, I think she would benefit from admission for further evaluation [GJ] [address] Calero and he will admit the patient for further workup at this time [GJ] ED Course User Index [] Patsy Hill MD Clinical Impressions as of 01/30/25 0333 SOB (shortness of breath) Edema, unspecified type Medical Decision Making 69-year-old female presenting with lower extremity edema and shortness of breath that has been worsening over the last 24-48 hours. Concern for ACS, arrhythmia, thyroid abnormality, CHF exacerbation,electrolyte abnormality, pleural effusions, pneumonia. Unlikely to be PE as patient is on Xarelto. Amount and/or Complexity of Data Reviewed External Data Reviewed: notes. Details: Recent discharge Labs: ordered. Decision-making details documented in ED Course. Radiology: Decision-making details documented in ED Course. ECG/medicine tests: ordered and independent interpretation performed. Details: Normal sinus rhythm. Ventricular rate 86 beats per minute. CO interval is 114 milliseconds, QRS duration 86 milliseconds, QTC [address] segment elevation or depression noted. Risk Prescription drug management. Orders Placed This Encounter XR Chest 1Vw Portable CBC W AUTO DIFFERENTIAL COMPREHENSIVE METABOLIC PANEL TROPONIN-I HIGH SENSITIVE BASELINE + 1HR TROPONIN-I HIGH SENSITIVE REFLEX 1HOUR NT-PRO BNP TSH REFLEX FREE T4 OXYGEN WITHOUT TITRATION (ADULT) EKG 12-Lead AND Linked Order Group 0.9% NaCl injection 3 mL 0.9% NaCl injection 1-10 mL valsartan (Diovan) tablet 80 mg furosemide (Lasix) injection 20 mg HYDROcodone-acetaminophen ([place]) 10-325 MG tablet 1 tablet [1] Past Medical History: Diagnosis Date Breast cancer (HCC) Chest pain DVT (deep venous thrombosis) (HCC) GERD (gastroesophageal reflux disease) LUL (obstructive sleep apnea) w cpap Other pulmonary embolism without acute cor pulmonale (HCC) rls Type 2 diabetes mellitus without complications (HCC) [2] Past Surgical History: Procedure Laterality Date Arthroplasty [...] THE BATTERY IN THE LOWER LUMBAR REGION [3] Family History Problem Relation Name Age of Onset Heart Disease Mother Diabetes Mother Cancer Father Hemochromatosis Father Cancer Sister Heart Disease Brother [4] Current Outpatient Medications Medication Sig Dispense Refill acetaminophen (Tylenol) 500 MG tablet Take 1 (one) tablet by mouth every 4 hours as needed Maximum allowable Acetaminophen amount = 4 Grams (4000 mg) / 24 hours. albuterol HFA (Proventil; Ventolin; Proair) 108 (90 Base) MCG/ACT inhaler Inhale 2 (two) puffs by mouth every 6 hours as needed aspirin (Aspirin) 81 MG chew tablet Take 1 (one) tablet by mouth once daily (chew and swallow) 30 tablet 2 atorvastatin (Lipitor) 40 MG tablet Take 1 (one) tablet by mouth at bedtime 30 tablet 2 Benzocaine-Menthol (throat lozenge) Take 1 (one) lozenge by mouth every 2 hours as needed for Sore Throat benzonatate (Tessalon) 100 MG capsule Take 1 (one) capsule by mouth 3 times daily as needed for Cough 30 capsule 0 Continuous Blood Gluc Sensor (FreeStyle Eileen 2 Sensor Systm) [facility] [place] 1 SENSOR AND WEAR FOR 14 DAYS TO CHECK BLOOD SUGAR diclofenac sodium (Voltaren) 1 % gel Apply 2 (two) g to affected area 4 times daily diphenhydrAMINE (Benadryl) 25 MG capsule Take 1 (one) capsule by mouth every 6 hours as needed for Itching empagliflozin (Jardiance) 10 MG tablet Take 1 (one) tablet by mouth once daily 30 tablet 2 exemestane (AROMASIN) 25 MG tablet Take 1 (one) tablet by mouth DAILY furosemide (Lasix) 20 MG tablet Take 1 (one) tablet by mouth once daily gabapentin (Neurontin) 300 MG capsule Take 1 (one) capsule by mouth 3 times daily HumaLOG KwikPen 100 UNIT/ML pen Inject 6 (six) Units subcutaneously 3 times daily before meals 3 mL2 ibuprofen (Motrin) 200 MG tablet Take 1 (one) tablet by mouth every 6 hours as needed insulin glargine (Lantus SoloStar) pen Inject 20 (twenty) Units subcutaneously once daily 15 mL 2 insulin pen needle (B-D ULTRAFINE III SHORT PEN) 31G X 8 MM needle 4 times daily 300 Each PRN Lancets (ONETOUCH DELICA PLUS 33G EXTRA FINE LANCET) USE FOUR TIMES DAILY Multiple Vitamins-Minerals (Multivitamin Womens 50+ Adv) TABS Take 1 tablet by mouth once daily naloxone HCl (Narcan) 4 MG/0.1ML nasal spray ondansetron, disintegrating, (Zofran ODT) 4 MG tablet Take 1 (one) tablet by mouth every 6 hours asneeded for Nausea/Vomiting Allow tablet to dissolve on the tongue 15 tablet 0 [employer] Mobile InteractionTOUCH ULTRA test strip 4 times daily oxyBUTYnin CR 24hr (Ditropan XL) 15 MG tablet Take 1 (one) tablet by mouth once daily 90 tablet 4 oxyCODONE-acetaminophen (Percocet) 10-325 MG tablet Take 1 (one) tablet by mouth every 4 hours as needed 12 tablet 0 pantoprazole EC (Protonix) 40 MG tablet Take 1 (one) tablet by mouth once daily polyethylene glycol 3350 (Miralax) 17 g packet Take 17 (seventeen) g by mouth once daily predniSONE (Deltasone) 10 MG tablet Take 1 (one) tablet by mouth daily with breakfast rivaroxaban (Xarelto) 20 MG tablet Take 1 (one) tablet by mouth daily with breakfast Reasons: Blockage of Blood Vessel to Lung by a Particle, Blood Clot in a Deep Vein rOPINIRole (REQUIP) 5 MG tablet TAKE 1 TABLET BY MOUTH EVERY NIGHT senna-docusate (Senokot-S) 8.6-50 MG tablet Take 1 (one) tablet by mouth once daily valsartan (Diovan) 80 MG tablet Take 1 (one) tablet by mouth once daily 30 tablet 2 * Rosie Alex RN - 01/30/2025 1:17 AM CDT Pt ambulatory to RR * Tabitha Powell RN - 01/30/2025 1:13 AM CDT Bed: 45 Expected date: Expected time: Means of arrival: Comments: Agustin * Melissa Roberts RN - 01/30/2025 12:57 AM CDT Patient to ED for multiple complaints. Primarily bilateral leg swelling that started yesterday. Patient also c/o SOB and fatigue over the past few days. documented in this encounter Plan of Treatment Upcoming Encounters Date Type Department Care Team (Late st Contact Info) Description 02/04/2025 2:00 PM CDT Office Visit [facility] [address] [place], [place] [phone] [place] [address] Xavier Coronado MD [address] [place] [phone] Scheduled Orders Name Type Priority Associated Diagnoses Order Schedule INITIATE RT BRONCHODILATOR PROTOCOL Respiratory Care Routine ONCE for 1 Occurrences starting 01/30/2025 until 01/30/2025 PT Eval and Treat PT Routine ONCE fo r 1 Occurrences starting 01/30/2025 until 01/30/2025 Scheduled Referrals Name Type Priority Associated Diagnoses Order Schedule Referral to Home Connections Outpatient Referral Routine Acute on chronic diastolic congestive heart failure (HCC) Ordered: 01/31/2025 documented as of this encounter Procedures Procedure Name Priority Date/Time Associated Diagnosis Comments BASIC METABOLIC PANEL (CALCIUM TOTAL) STAT 02/02/2025 8:23 AM CDT GLUCOSE - POINT OF CARE Routine 02/02/2025 7:43 AM CDT GLUCOSE - POINT OF CARE Routine 02/01/2025 8:57 PM CDT GLUCOSE - POINT OF CARE Routine 02/01/2025 7:29 PM CDT GLUCOSE - POINT OF CARE Routine 02/01/2025 5:12 PM CDT GLUCOSE - POINT OF CARE Routine 02/01/2025 12:15 PM CDT BASIC METABOLIC PANEL (CALCIUM TOTAL) Routine 02/01/2025 11:32 AM CDT GLUCOSE - POINT OF CARE Routine 02/01/2025 9:30 AM CDT GLUCOSE - POINT OF CARE Routine 02/01/2025 7:41 AM CDT GLUCOSE - POINT OF CARE Routine 01/31/2025 7:12 PM CDT GLUCOSE - POINT OF CARE Routine 01/31/2025 5:11 PM CDT GLUCOSE - POINT OF CARE Routine 01/31/2025 11:55 AM CDT BASIC METABOLIC PANEL (CALCIUM TOTAL) Routine 01/31/2025 10:47 AM CDT Acute on chronic diastolic congestive heart failure (HCC) GLUCOSE - POINT OF CARE Routine 01/31/2025 7:52 AM CDT LIPID PROFILE AM Draw 01/31/2025 3:07 AM CDT Acute on chronic diastolic congestive heart failure (HCC) GLUCOSE - POINT OF CARE Routine 01/30/2025 8:30 PM CDT CARDIAC EKG ORDER 01/30/2025 5:0 5 PM CDT GLUCOSE - POINT OF CARE Routine 01/30/2025 4:21 PM CDT STREP A SCREEN DIRECT W RFLX STREP A CULTURE Routine 01/30/2025 2:50 PM CDT Sore throat CULTURE STREP GROUP A Routine 01/30/2025 2:50 PM CDT Sore throat GLUCOSE - POINT OF CARE Routine 01/30/2025 12:01 PM CDT C-REACTIVE PROTEIN Routine 01/30/2025 8: 50 AM CDT Polymyositis (HCC) ERYTHROCYTE SEDIMENTATION RATE Routine 01/30/2025 8:50 AM CDT Polymyositis (HCC) GLUCOSE - POINT OF CARE Routine 01/30/2025 8:20 AM CDT OT EVAL AND TREAT Routine 01/30/2025 7:2 5 AM CDT TROPONIN-I HIGH SENSITIVE REFLEX 1HOUR Timed 01/30/2025 2:42 AM CDT XR CHEST 1VW PORTABLE STAT 01/30/2025 2:21 AM CDT SOB (shortness of breath) NT-PRO BNP STAT 01/30/2025 1:50 AM CDT TSH REFLEX FREE T4 STAT 01/30/2025 1: 50 AM CDT COMPREHENSIVE METABOLIC PANEL STAT 01/30/2025 1:50 AM CDT TROPONIN-I HIGH SENSITIVE BASELINE + 1HR STAT 01/30/2025 1:20 AM CDT CBC W AUTO DIFFERENTIAL STAT 01/30/2025 1:20 AM CDT EKG 12-LEAD STAT 01/30/2025 1:07 AM CDT SOB (shortness of breath) documented in this encounter Results * (ABNORMAL) BASIC METABOLIC PANEL (CALCIUM TOTAL) (02/02/2025 8:23 AM CDT) [facility] Signature Glucose 224(H) 70 - 99 mg/dL 02/02/2025 9:03 AM CDT [facility] Sodium 137 136 - 145 mmol/L 02/02/2025 9:03 AM CDT [facility] Potassium 3.5 3.5 - 5.1 mmol/L 02/02/2025 9:03 AM T [facility] Chloride 94(L) 98 - 107 mmol/L 02/02/2025 9:03 AM T [facility] CO2 30(H) 22 - 29 mmol/L 02/02/2025 9:03 AM T [facility] Calcium 10.0 8.4 - 10.4 mg/dL 02/02/2025 9:03 AM T [facility] Anion Gap 13 6 - 16 mmol/L 02/02/2025 9:03 AM CDT [facility] BUN 48(H) 7 - 26 mg/dL 02/02/2025 9:03 AM T [facility] Creatinine 1.10 0.50 - 1.20 mg/dL 02/02/2025 9:03 AM [facility] eGFR by CKD-EPI 55(L) >=90 mL/min/1.7 3 m2 02/02/2025 9:03 AM T [facility] Comment:Estimated Glomerular Filtration Rate (eGFR) calculated using the CKD-EPI Creatinine Equation (2020), per the National Kidney Foundation and [place] [employer]ph[employer] recommendations. Blood BLOOD SPECIMEN / Unknown Lab Venipuncture / Unknown 02/02/2025 8:23 AM CDT 02/02/2025 8:38 AM T us Darvin Parekh MD LAB - CHEMISTRY ORDERABLES Deann bowman Result [facility] [address] [place], [place] [phone] * (ABNORMAL) GLUCOSE - POINT OF CARE (02/02/2025 7:43 AM CDT) Glucose WB/POC 231(H) 70 - 99 mg/dL 02/02/2025 7:53 AM CDT [facility] Specimen Type Arterial/C apillary 02/02/2025 7:53 AM CDT [facility] Blood BLOOD SPECIMEN / Unknown 02/02/2025 7:43 AM CDT 02/02/2025 7:53 AM CDT Darvin Parekh MD LAB - POINT OF CARE ORDERABLES Final Result Performing Organization Address City/[facility]/ZIP Co de Phone Number [facility] [address] [place] [phone] * (ABNORMAL) GLUCOSE - POINT OF CARE (02/01/2025 8:57 PM CDT) Glucose WB/POC 225(H) 70 - 99 mg/dL 02/03/2025 6:12 AM CDT [facility] Specimen Type Arterial/C apillary 02/03/2025 6:12 AM CDT [facility] Blood BLOOD SPECIMEN / Unknown 02/01/2025 8:57 PM CDT 02/03/2025 6:12 AM CDT Darvin Parekh MD LAB - POINT OF CARE ORDERABLES Final Result [facility] [address] [place] [phone] * (ABNORMAL) GLUCOSE - POINT OF CARE (02/01/2025 7:29 PM CDT) Glucose WB/POC 308(H) 70 - 99 mg/dL 02/01/2025 7:35 PM CDT [facility] Specimen Type Arterial/C apillary 02/01/2025 7:35 PM CDT [facility] Blood BLOOD SPECIMEN / Unknown 02/01/2025 7:29 PM CDT 02/01/2025 7:35 PM CDT Darvin Parekh MD LAB - POINT OF CARE ORDERABLES Final Result [facility] [address] [place] [address] * (ABNORMAL) GLUCOSE - POINT OF CARE (02/01/2025 5:12 PM CDT) Glucose WB/POC 250(H) 70 - 99 mg/dL 02/01/2025 5:18 PM CDT [facility] Specimen Type Arterial/C apillary 02/01/2025 5:18 PM CDT [facility] Blood BLOOD SPECIMEN / Unknown 02/01/2025 5:12 PM CDT 02/01/2025 5:18 PM CDT Darvin Parekh MD LAB - POINT OF CARE ORDERABLES Final Result Performing Organization Address [facility] Co de Phone Number [facility] [address] [place] [address] * (ABNORMAL) GLUCOSE - POINT OF CARE (02/01/2025 12:15 PM CDT) Glucose WB/POC 306(H) 70 - 99 mg/dL 02/01/2025 12:33 PM CDT [facility] Specimen Type Arterial/C apillary 02/01/2025 12:33 PM CDT [facility] Blood BLOOD SPECIMEN / Unknown 02/01/2025 12:15 PM CDT 02/01/2025 12:33 PM CDT Darvin Parekh MD LAB - POINT OF CARE ORDERABLES Final Result [facility] [address] [place] [address] * (ABNORMAL) BASIC METABOLIC PANEL (CALCIUM TOTAL) (02/01/2025 11:32 AM CDT) Glucose 296(H) 70 - 99 mg/dL 02/01/2025 12:20 PM CDT [facility] Sodium 133(L) 136 - 145 mmol/L 02/01/2025 12:20 PM CDT [facility] Potassium 4.6 3.5 - 5.1 mmol/L 02/01/2025 12:20 PM CDT [facility] Chloride 96(L) 98 - 107 mmol/L 02/01/2025 12:20 PM CDT [facility] CO2 23 22 - 29 mmol/L 02/01/2025 12:20 PM CDT [facility] Calcium 10.2 8.4 - 10.4 mg/dL 02/01/2025 12:20 PM CDT [facility] Anion Gap 14 6 - 16 mmol/L 02/01/2025 12:20 PM CDT [facility] BUN 43(H) 7 - 26 mg/dL 02/01/2025 12:20 PM CDT [facility] Creatinine 0.97 0.50 - 1.20 mg/dL 02/01/2025 12:20 PM [facility] eGFR by CKD-EPI 64(L) >=90 mL/min/1.7 3 m2 02/01/2025 12:20 PM T [facility] Comment:Estimated Glomerular Filtration Rate (eGFR) calculated using the CKD-EPI Creatinine Equation (2020), per the National Kidney Foundation and [place] [employer] Neph[employer] recommendations. Blood BLOOD SPECIMEN / Unknown Lab Venipuncture / Unknown 02/01/2025 11:32 AM CDT 02/01/2025 11:51 AM CDT Darvin Parekh MD LAB - CHEMISTRY ORDERABLES Deann l Result [facility] [address] [place] [address] * (ABNORMAL) GLUCOSE - POINT OF CARE (02/01/2025 9:30 AM CDT) [facility] Glucose WB/POC 310(H) 70 - 99 mg/dL 02/01/2025 9:37 AM CDT [facility] Specimen Type Arterial/C apillary 02/01/2025 9:37 AM CDT [facility] Blood BLOOD SPECIMEN / Unknown 02/01/2025 9:30 AM CDT 02/01/2025 9:37 AM CDT Darvin Parekh MD LAB - POINT OF CARE ORDERABLES Final Result Performing Organization Address [facility]/ZIP Co de Phone Number [facility] [address] [place] [phone] * (ABNORMAL) GLUCOSE - POINT OF CARE (02/01/2025 7:41 AM CDT) Glucose WB/POC 207(H) 70 - 99 mg/dL 02/01/2025 8:02 AM CDT [facility] Specimen Type Arterial/C apillary 02/01/2025 8:02 AM CDT [facility] Blood BLOOD SPECIMEN / Unknown 02/01/2025 7:41 AM CDT 02/01/2025 8:02 AM CDT us Darvin Parekh MD LAB - POINT OF CARE ORDERABLES Final Result Performing Organization Address [facility] Co de Phone Number [facility] [address] [place] [phone] * (ABNORMAL) GLUCOSE - POINT OF CARE (01/31/2025 7:12 PM CDT) Pathologist [facility] Glucose WB/POC 364(H) 70 - 99 mg/dL 01/31/2025 7:19 PM CDT [facility] Specimen Type Arterial/C apillary 01/31/2025 7:19 PM CDT [facility] Blood BLOOD SPECIMEN / Unknown 01/31/2025 7:12 PM CDT 01/31/2025 7:18 PM CDT Darvin Parekh MD LAB - POINT OF CARE ORDERABLES Final Result Performing Organization Address City/[facility]/ZIP Co de Phone Number [facility] [address] [place] [phone] * (ABNORMAL) GLUCOSE - POINT OF CARE (01/31/2025 5:11 PM CDT) Glucose WB/POC 390(H) 70 - 99 mg/dL 01/31/2025 5:22 PM CDT [facility] Specimen Type Arterial/C apillary 01/31/2025 5:22 PM CDT [facility] Blood BLOOD SPECIMEN / Unknown 01/31/2025 5:11 PM CDT 01/31/2025 5:22 PM CDT Darvin Parekh MD LAB - POINT OF CARE ORDERABLES Final Result Performing Organization Address [facility]/ZIP Co de Phone Number [facility] [address] [place] [phone] * (ABNORMAL) GLUCOSE - POINT OF CARE (01/31/2025 11:55 AM CDT) Glucose WB/POC 259(H) 70 - 99 mg/dL 01/31/2025 12:01 PM CDT [facility] Specimen Type Arterial/C apillary 01/31/2025 12:01 PM CDT [facility] Blood BLOOD SPECIMEN / Unknown 01/31/2025 11:55 AM CDT 01/31/2025 12:01 PM CDT Darvin Parekh MD LAB - POINT OF CARE ORDERABLES Final Result Performing Organization Address [facility] de Phone Number [facility] [address] [place] [phone] * (ABNORMAL) BASIC METABOLIC PANEL (CALCIUM TOTAL) (01/31/2025 10:47 AM CDT) Glucose 244(H) 70 - 99 mg/dL 01/31/2025 11:18 AM CDT [facility] Sodium 136 136 - 145 mmol/L 01/31/2025 11:18 AM CDT [facility] Potassium 3.9 3.5 - 5.1 mmol/L 01/31/2025 11:18 AM CDT [facility] Chloride 97(L) 98 - 107 mmol/L 01/31/2025 11:18 AM CDT [facility] CO2 29 22 - 29 mmol/L 01/31/2025 11:18 AM CDT [facility] Calcium 10.0 8.4 - 10.4 mg/dL 01/31/2025 11:18 AM CDT [facility] Anion Gap 10 6 - 16 mmol/L 01/31/2025 11:18 AM CDT [facility] BUN 34(H) 7 - 26 mg/dL 01/31/2025 11:18 AM CDT [facility] Creatinine 0.89 0.50 - 1.20 mg/dL 01/31/2025 11:18 AM CDT [facility] eGFR by CKD-EPI 71(L) >=90 mL/min/1.7 3 m2 01/31/2025 11:18 AM CDT [facility] Comment:Estimated Glomerular Filtration Rate (eGFR) calculated using the CKD-EPI Creatinine Equation (2020), per the National Kidney Foundation and [place] [employer] Neph[employer] recommendations. Blood BLOOD SPECIMEN / Unknown Lab Venipuncture / Unknown 01/31/2025 10:47 AM CDT 01/31/2025 11:00 AM CDT Darvin Parekh MD LAB - CHEMISTRY ORDERABLES Deann l Result [facility] [address] [place] [phone] * (ABNORMAL) GLUCOSE - POINT OF CARE (01/31/2025 7:52 AM CDT) [facility] Glucose WB/POC 210(H) 70 - 99 mg/dL 01/31/2025 8:42 AM CDT [facility] Specimen Type Arterial/C apillary 01/31/2025 8:42 AM CDT [facility] Blood BLOOD SPECIMEN / Unknown 01/31/2025 7:52 AM CDT 01/31/2025 8:41 AM CDT Darvin Parekh MD LAB - POINT OF CARE ORDERABLES Final Result [facility] [address] [place] [phone] * LIPID PROFILE (01/31/2025 3:07 AM CDT) Cholesterol 176 <200 mg/dL 01/31/2025 4:09 AM CDT [facility] Triglycerides 114 <150 mg/dL 01/31/2025 4:09 AM CDT [facility] HDL Cholesterol 60 >40 mg/dL 4:09 AM CDT [facility] LDL Calculated 93 <130 mg/dL 01/31/2025 4:09 AM CDT [facility] Comment:LDL is calculated us ing the Friedewald equation. VLDL Calculated 23 <=30 mg/dL 4:09 AM CDT [facility] Chol HDL Ratio 2.9 <4.5 01/31/2025 4:09 AM CDT [facility] LDL/HDL Ratio 1.6 <5.0 01/31/2025 4:09 AM CDT [facility] Blood BLOOD SPECIMEN / Unknown Lab Venipuncture / Unknown 01/31/2025 3:07 AM CDT 01/31/2025 3:36 AM CDT Gil Perrin MD LAB - CHEMISTRY ORDERABLES Fin al Result Performing Organization Address City/[facility]/ZIP Co de Phone Number [facility] [address] [place] [phone] * (ABNORMAL) GLUCOSE - POINT OF CARE (01/30/2025 8:30 PM CDT) Glucose WB/POC 311(H) 70 - 99 mg/dL 01/30/2025 11:42 PM CDT [facility] Specimen Type Arterial/C apillary 01/30/2025 11:42 PM CDT [facility] Blood BLOOD SPECIMEN / Unknown 01/30/2025 8:30 PM CDT 01/30/2025 11:42 PM CDT Darvin Parekh MD LAB - POINT OF CARE ORDERABLES Final Result Performing Organization Address City/[facility]/ZIP Co de Phone Number [facility] [address] [place] [phone] * CARDIAC EKG ORDER (01/30/2025 5:05 PM CDT) Narrative 01/30/2025 5:05 PM CDT Ordered by an unspecified provider. Scanned Document CARDIAC SERVICES ORDERABLES Fin al Result * (ABNORMAL) GLUCOSE - POINT OF CARE (01/30/2025 4:21 PM CDT) Glucose WB/POC 200(H) 70 - 99 mg/dL 01/30/2025 4:31 PM CDT [facility] Specimen Type Arterial/C apillary 01/30/2025 4:31 PM CDT [facility] Blood BLOOD SPECIMEN / Unknown 01/30/2025 4:21 PM CDT 01/30/2025 4:31 PM CDT Darvin Parekh MD LAB - POINT OF CARE ORDERABLES Final Result Performing Organization Address City/[facility]/ZIP Co de Phone Number [facility] [address] [place] [address] * CULTURE STREP GROUP A (01/30/2025 2:50 PM CDT) Pathologist [facility] Culture Negative for beta-hemolytic Streptococcus Group A TERRANCE 01/31/2025 10:13 PM CDT [facility] Microbiology ENTIRE ANTERIOR SURFACE OF NECK / Unknown Collection / Unknown 01/30/2025 2:50 PM CDT 01/30/2025 3:04 PM CDT Jayla Bettencourt [employer] SPECULATOR LAB - MICROBIOLOGY ORDERABLES Final Result [facility] [address] [place] [address], [facility] [phone] * STREP A SCREEN DIRECT W RFLX STREP A CULTURE (01/30/2025 2:50 PM CDT) Strep A Rapid Negative Negative 01/30/2025 3:17 PM CDT [facility] Microbiology ENTIRE ANTERIOR SURFACE OF NECK / Unknown Collection / Unknown 01/30/2025 2:50 PM CDT 01/30/2025 3:04 PM CDT Narrative [facility] - 01/30/2025 3:17 PM CDT Test has reflexed to a Strep A culture. Jayla Bettencourt [employer] SPECULATOR LAB - MICROBIOLOGY ORDERABLES Final Result Performing Organization Address [facility]/ZIP Co de Phone Number [facility] [address] [place] [address] [phone] * (ABNORMAL) GLUCOSE - POINT OF CARE (01/30/2025 12:01 PM CDT) Glucose WB/POC 244(H) 70 - 99 mg/dL 01/30/2025 12:09 PM CDT [facility] Specimen Type Arterial/C apillary 01/30/2025 12:09 PM CDT [facility] Blood BLOOD SPECIMEN / Unknown 01/30/2025 12:01 PM CDT 01/30/2025 12:09 PM CDT Darvin Parekh MD LAB - POINT OF CARE ORDERABLES Final Result Performing Organization Address [facility] Co de Phone Number [facility] [address] [place], [place] [id number] * (ABNORMAL) ERYTHROCYTE SEDIMENTATION RATE (01/30/2025 8:50 AM CDT) Pathologist [facility] Erythrocyte Sedimentation Rate Automated 41(H) 0 - 30 MM/HR 01/30/2025 9:24 AM CDT [facility] Blood BLOOD SPECIMEN / Unknown Lab Venipuncture / Unknown 01/30/2025 8:50 AM CDT 01/30/2025 9:16 AM CDT Jayla Bettencourt DRILLER PORTABLE-LIVESTOCK SPECULATOR LAB - HEMATOLOGY O RDERABLES Final Result Performing Organization Address [facility]/ZIP Co de Phone Number [facility] [address] [place] [phone] * (ABNORMAL) C-REACTIVE PROTEIN (01/30/2025 8:50 AM CDT) C-Reactive Protein 1.74(H) <=0.50 mg/dL 01/30/2025 10:00 AM CDT [facility] Blood BLOOD SPECIMEN / Unknown Lab Venipuncture / Unknown 01/30/2025 8:50 AM CDT 01/30/2025 9:16 AM CDT Jayla Bettencourt DRILLER PORTABLE-LIVESTOCK SPECULATOR LAB - CHEMISTRY OR DERABLES Final Result Performing Organization Address [facility]/ZIP Co de Phone Number [facility] [address] [place], [place] [phone] * (ABNORMAL) GLUCOSE - POINT OF CARE (01/30/2025 8:20 AM CDT) Pathologist [facility] Glucose WB/POC 190(H) 70 - 99 mg/dL 01/30/2025 8:26 AM CDT [facility] Specimen Type Arterial/C apillary 01/30/2025 8:26 AM CDT [facility] Blood BLOOD SPECIMEN / Unknown 01/30/2025 8:20 AM CDT 01/30/2025 8:26 AM CDT Result [facility] Darvin Parekh MD LAB - POINT OF CARE ORDERABLES Final Result Performing Organization Address [facility] Co de Phone Number [facility] [address] [place] [address] * TROPONIN-I HIGH SENSITIVE REFLEX 1HOUR (01/30/2025 2:42 AM CDT) Pathologist [facility] Troponin I High Sensitive 10 <=14 ng/L 01/30/2025 3:12 AM CDT [facility] Delta Troponin I HS 1 <6 ng/L 01/30/2025 3:12 AM CDT [facility] Blood BLOOD SPECIMEN / Unknown Venipuncture / Unknown 01/30/2025 2:42 AM CDT 01/30/2025 2:50 AM CDT Patsy Hill MD LAB - CHEMISTRY ORDERABLES Fin al Result [facility] [address] [place] [address] * XR Chest 1Vw Portable (01/30/2025 2:21 AM CDT) Anatomical Region Laterality Modality Chest Radiographic Lizeth ging 01/30/2025 8:28 AM CDT Impressions 01/30/2025 8:29 AM CDT IMPRESSION: As above. > Interpreting Provider: Justen Lynch MD on 01/30/2025 8:29 AM Narrative 01/30/2025 8:29 AM CDT PROCEDURE: XR CHEST 1VW PORTABLE DATE/TIME OF EXAM: 01/30/2025 2:42 AM CLINICAL INFORMATION: None relevant/not provided if blank. Indication: R06.02: SOB (shortness of breath) Additional History: COMPARISON: 01/02/2025 FINDINGS: Suggestion of diffuse interstitial opacities and mild patchy bibasilar atelectasis/airspace disease. The cardiomediastinal silhouette is stable. Spinal stimulator is noted. Procedure Note Justen Lynch MD - 01/30/2025 PROCEDURE: XR CHEST 1VW PORTABLE DATE/TIME OF EXAM: 01/30/2025 2:42 AM CLINICAL INFORMATION: None relevant/not provided if blank. Indication: R06.02: SOB (shortness of breath) Additional History: COMPARISON: 01/02/2025 FINDINGS: Suggestion of diffuse interstitial opacities and mild patchy bibasilar atelectasis/airspace disease. The cardiomediastinal silhouette isstable. Spinal stimulator is noted. IMPRESSION: As above. > Interpreting Provider: Justen Lynch MD on 01/30/2025 8:29 AM us Cordelia Wilson DO DIAGNOSTIC IMAGING ORDERABLES F inal Result * TSH REFLEX FREE T4 (01/30/2025 1:50 AM CDT) TSH 1.984 0.350 - 4.940 uIU/mL 01/30/2025 2:26 AM CDT [facility] Blood BLOOD SPECIMEN / Unknown Venipuncture / Unknown 01/30/2025 1:50 AM CDT 01/30/2025 1:50 AM CDT Patsy Hill MD LAB - CHEMISTRY ORDERABLES Fin al Result Performing Organization Address [facility] de Phone Number [facility] [address] [place] [phone] * NT-PRO BNP (01/30/2025 1:50 AM CDT) NT-proBNP 156.9 <900.0 pg/mL 01/30/2025 2:26 AM CDT [facility] Blood BLOOD SPECIMEN / Unknown Venipuncture / Unknown 01/30/2025 1:50 AM CDT 01/30/2025 1:50 AM CDT Narrative [facility] - 01/30/2025 2:26 AM CDT NT-pro-BNP values below 300 pg/mL, for individuals 18 or above, have a 99% negative predictive value for excluding acute congestive heart failure (CHF). In patients with eGFR less than 60 mL/min/1.73 m2, caution should be used when interpreting NT-pro-BNP results. Results should be assessed in conjunction with the patient s medical history, clinical examination, and other findings. NT-pro-BNP is measured on the Event[employer]ist[employer] analyzer using chemiluminescent microparticle immunoassay (CMIA) technology. Patsy Hill MD LAB - CHEMISTRY ORDERABLES Fin al Result Performing Organization Address [facility] de Phone Number [facility] [address] [place] [id number] * (ABNORMAL) COMPREHENSIVE METABOLIC PANEL (01/30/2025 1:50 AM CDT) Glucose 359(H) 70 - 99 mg/dL 01/30/2025 2:02 AM CDT [facility] Sodium 140 136 - 145 mmol/L 01/30/2025 2:02 AM CDT [facility] Potassium 4.2 3.5 - 5.1 mmol/L 01/30/2025 2:02 AM CDT [facility] Chloride 104 98 - 107 mmol/L 01/30/2025 2:02 AM [facility] CO2 25 22 - 29 mmol/L 01/30/2025 2:02 AM [facility] Calcium 9.5 8.4 - 10.4 mg/dL 01/30/2025 2:02 AM [facility] Anion Gap 11 6 - 16 mmol/L 01/30/2025 2:02 AM [facility] BUN 23 7 - 26 mg/dL 01/30/2025 2:02 AM [facility] Creatinine 1.03 0.50 - 1.20 mg/dL 01/30/2025 2:02 AM [facility] Alkaline Phosphatase 76 40 - 150 U/L 01/30/2025 2:02 AM [facility] ALT 27 6 - 57 U/L 01/30/2025 2:02 AM [facility] AST 24 10 - 48 U/L 01/30/2025 2:02 AM [facility] Protein Total 7.7 6.4 - 8.3 gm/dL 01/30/2025 2:02 AM [facility] Albumin 3.7 3.1 - 4.5 gm/dL 01/30/2025 2:02 AM [facility] Bilirubin Total 0.6 0.2 - 1.2 mg/dL 01/30/2025 2:02 AM [facility] eGFR by CKD-EPI 59(L) >=90 mL/min/1.7 3 m2 01/30/2025 2:02 AM [facility] Comment:Estimated Glomerular Filtration Rate (eGFR) calculated using the CKD-EPI Creatinine Equation (2020), per the National Kid[employer] Foundation and [place] [employer]ph[employer] recommendations. Blood BLOOD SPECIMEN / Unknown Venipuncture / Unknown 01/30/2025 1:50 AM CDT 01/30/2025 1:50 AM [facility] us Patsy Hill MD LAB - CHEMISTRY ORDERABLES Fin al Result [facility] [address] [place] [address] * TROPONIN-I HIGH SENSITIVE BASELINE + 1HR (01/30/2025 1:20 AM CDT) Pathologist [facility] Troponin I High Sensitive 9 <=14 ng/L 01/30/2025 1:44 AM CDT [facility] Blood BLOOD SPECIMEN / Unknown Venipuncture / Unknown 01/30/2025 1:20 AM CDT 01/30/2025 1:20 AM CDT us Patsy Hill MD LAB - CHEMISTRY ORDERABLES Fin al Result [facility] [address] [place] [address] * (ABNORMAL) CBC W AUTO DIFFERENTIAL (01/30/2025 1:20 AM CDT) Pathologist [facility] WBC 13.4(H) 4.0 - 10.7 x10E9/L 01/30/2025 1:24 AM CDT [facility] RBC Count 4.52 3.90 - 5.20 x10E12/L 01/30/2025 1:24 AM CDT [facility] Hemoglobin 12.7 11.9 - 15.8 g/dL 01/30/2025 1:24 AM CDT [facility] Hematocrit 41.2 34.8 - 46.1 % 01/30/2025 1:24 AM CDT [facility] MCV 91.2 80.0 - 98.0 fL 01/30/2025 1:24 AM CDT [facility] MCH 28.1 26.7 - 33.6 pg 01/30/2025 1:24 AM CDT [facility] MCHC 30.8(L) 31.7 - 36.3 g/dL 01/30/2025 1:24 AM CDT [facility] RDW-CV 14.0 11.3 - 14.8 % 01/30/2025 1:24 AM CDT [facility] Platelet Count 258 150 - 420 x10E9/L 01/30/2025 1:24 AM CDT [facility] MPV 9.9 7.8 - 11.4 fL 01/30/2025 1:24 AM CDT [facility] Neutrophil % 74.9(H) 41.0 - 74.0 % 01/30/2025 1:24 AM CDT [facility] Lymphocyte % 19.2 17.0 - 47.0 % 01/30/2025 1:24 AM CDT [facility] Monocyte % 5.1 3.0 - 11.0 % 01/30/2025 1:24 AM CDT [facility] Eosinophil % 0.3 0.0 - 7.0 % 01/30/2025 1:24 AM CDT [facility] Basophil % 0.2 0.0 - 1.6 % 01/30/2025 1:24 AM CDT [facility] Immature Granulocytes % 0.3 0.0 - 1.0 % 01/30/2025 1:24 AM CDT [facility] Neutrophil Absolute 10.06(H) 1.60 - 7.50 x10E9/L 01/30/2025 1:24 AM CDT [facility] Lymphocyte Absolute 2.58 1.00 - 4.40 x10E9/L 01/30/2025 1:24 AM CDT [facility] Monocyte Absolute 0.69 0.15 - 1.00 x10E9/L 01/30/2025 1:24 AM CDT [facility] Eosinophil Absolute 0.04 0.00 - 0.60 x10E9/L 01/30/2025 1:24 AM CDT [facility] Basophil Absolute 0.03 0.00 - 0.13 x10E9/L 01/30/2025 1:24 AM CDT [facility] Blood BLOOD SPECIMEN / Unknown Venipuncture / Unknown 01/30/2025 1:20 AM CDT 01/30/2025 1:20 AM CDT us Patsy Hill MD LAB - HEMATOLOGY ORDERABLES Fi nal Result [facility] [address] [place] [address] * EKG 12-Lead (01/30/2025 1:07 AM CDT) Ventricular Rate 86 BPM [facility] Atrial Rate 86 BPM [facility] P-R Interval 114 ms [facility] QRS Duration ms 86 ms [facility] Q-T Interval ms 370 ms [facility] QTC Calculation (Bezet) 442 ms [facility] Calculated P [place] 15 degrees [facility] Calculated T [place] 55 degrees [facility] Interpretation EKG NORMAL SINUS RHYTHM NORMAL ECG WHEN COMPARED WITH ECG OF 06-JAN-2025 10:09, NO SIGNIFICANT CHANGE WAS FOUND Confirmed by MD CAMARA PAUL ([id number]) on 01/30/2025 3:29:07 PM [facility] 01/30/2025 1:07 AM CDT 01/30/2025 3:29 PM CDT us Patsy Hill MD ECG ORDERABLES Edited Result - Final [facility] documented in this encounter Visit Diagnoses Diagnosis Acute heart failure with preserved ejection fraction (HFpEF) (HCC)- Primary SOB (shortness of breath) Shortness of breath Edema, unspecified type Polymyositis (HCC) Polymyositis Sore throat Acute pharyngitis Acute on chronic diastolic congestive heart failure (HCC) Acute on chronic diastolic heart failure Edema, unspecified type SOB (shortness of breath) Shortness of breath LUL (obstructive sleep apnea) Obstructive sleep apnea (adult) (pediatric) Breast cancer (HCC) Malignant neoplasm of breast (female), unspecified site Type 2 diabetes mellitus without complication ([facility]/HCC) Type II or unspecified type diabetes mellitus without mention of complication, not stated as uncontrolled Weakness Other malaise and fatigue Polymyositis (HCC) Polymyositis Essential hypertension Morbid obesity (HCC) Morbid obesity Chronic anticoagulation Encounter for long-term (current) use of anticoagulants Chronic back pain Backache, unspecified Sore throat Acute pharyngitis documented in this encounter Administered Medications Inactive Administered Medications - up to 3 most recent administrations Medication Order MAR Action Action Date Dose Rate Site 0.9% NaCl injection 1-10 mL 1-10 mL, Intracatheter, PRN, Other, peripheral line flush, Starting on [place] 01/30/25 at 0530, Until 02/02/25 at 1529, Flush peripheral IV catheter with 1-10 mL of normal saline before and after medications and prn to clear blood from the line or to verify patency. $ Given 02/01/2025 11:28 AM CDT 3 mL 0.9% NaCl injection 3 mL 3 mL, Intracatheter, EVERY 8 HOURS, First dose on [facility] 01/30/25 at 0145, Until Discontinued, Flush peripheral IV catheter with 3 mL of normal saline every 8 hours. $ Given 01/31/2025 8:49 PM CDT 3 mL $ Given 01/31/2025 5:43 AM CDT 3 mL $ Given 01/30/2025 8:45 PM CDT 3 mL 0.9% NaCl injection 3 mL 3 mL, Intracatheter, EVERY 8 HOURS, First dose on [facility] 01/30/25 at 0615, Until Discontinued, Flush peripheral IV catheter with 3 mL of normal saline every 8 hours. $ Given 02/01/2025 9:05 PM CDT 3 mL $ Given 02/01/2025 4:44 AM CDT 3 mL $ Given 01/31/2025 5:43 AM CDT 3 mL acetaminophen (Tylenol) tablet 500 mg 500 mg, Oral, EVERY 8 HOURS PRN, Fever, Mild Pain, Headache, Starting on [facility] 01/30/25 at 0710, Until 02/02/25 at 1529, Patient preference for lesser PRN pain meds [...] oral first unless patient cannot tolerate oral intake. $ Given 02/02/2025 6:29 AM CDT 500 mg $ Given 02/01/2025 8:50 PM CDT 500 mg $ Given 01/31/2025 5:43 AM CDT 500 mg aspirin chew tablet 81 mg 81 mg, Oral, DAILY, First dose on [facility] 01/30/25 at 0900, Until Discontinued $ Given 02/02/2025 8:09 AM CDT 81 mg $ Given 02/01/2025 8:00 AM CDT 81 mg $ Given 01/31/2025 8:27 AM CDT 81 mg atorvastatin (Lipitor) tablet 40 mg 40 mg, Oral, AT BEDTIME, First dose on [facility] 01/30/25 at 2100, Until Discontinued $ Given 02/01/2025 8:51 PM CDT 40 mg $ Given 01/31/2025 8:45 PM CDT 40 mg $ Given 01/30/2025 8:44 PM CDT 40 mg cyclobenzaprine (Flexeril) tablet 10 mg 10 mg, Oral, 3 TIMES DAILY PRN, Muscle Spasms, Starting on [facility] 01/30/25 at 1603, Until [place] 01/30/25 at 1844 $ Given 01/30/2025 5:24 PM CDT 10 mg dextrose IV 12.5 g 12.5 g, Intravenous, PRN, Other, Bedside Glucose less than 70 mg/dL -If NOT able to eat and/or NPO and with IV Access, Starting on [facility] 01/30/25 at 1211, Until [place] 02/02/25 at 1529, If NOT able to eat and/or NPO [...] NPO and with IV Access, Starting on [facility] 01/30/25 at 1211, Until [place] 02/02/25 at 1529, If NOT able to eat and/or NPO and with IV Access: For Bedside Glucose LESS than 54 mg/dl verify with a second Bedside Glucose (from a different site) and give 25 g Dextrose IV STAT Re-check and Re-treat blood glucose EVERY - 10-25 minutes until blood glucose GREATER than or equal to 80 mg/dl. - If repeat bedside glucose 54-79 give 12.5 g Dextrose IV STAT NOTIFY PROVIDER OF HYPOGLYCEMIC EVENT. diclofenac sodium (Voltaren) 1 % gel 2 g 2 g, Topical, 4 TIMES DAILY, First dose on Mon01/31/25 at 1000, Until Discontinued, Use dosing card to apply gel to back. Do not discard dosing card. . WASTE DISPOSAL INSTRUCTIONS: Black Bin Disposal required. $ Given 02/01/2025 8:52 PM CDT 2 g $ Given 01/31/2025 8:45 PM CDT 2 g $ Given 01/31/2025 5:25 PM CDT 2 g diphenhydrAMINE (Benadryl) capsule 50 mg 50 mg, Oral, AT BEDTIME PRN, Insomnia, Starting on [place] 01/30/25 at 0532, Until 02/02/25 at 1529 $ Given 01/30/2025 9:52 PM CDT 50 mg empagliflozin (Jardiance) tablet 10 mg 10 mg, Oral, DAILY, First dose on [place] 01/30/25 at 1130, Until Discontinued, Restricted to the indication of Heart Failure and/or CKD only due to risk of hypoglycemic when used for DM in acute care settings. Indication for use? Heart Failure $ Given 02/02/2025 8:09 AM CDT 10 mg $ Given 02/01/2025 8:00 AM CDT 10 mg $ Given 01/31/2025 8:25 AM CDT 10 mg furosemide (Lasix) injection 20 mg 20 mg, Intravenous, NOW, 1 dose, On [facility] 01/30/25 at 0300, Protect from light $ Given 01/30/2025 3:03 AM CDT 20 mg furosemide (Lasix) injection 40 mg 40 mg, Intravenous, 2 TIMES DAILY (diuretics), 2 doses, First dose (after last modification) on [facility] 01/30/25 at 1100, Last dose on [place] 01/30/25 at 1700, Protect from light $ Given 01/30/2025 5:23 PM CDT 40 mg $ Given 01/30/2025 11:17 AM CDT 40 mg furosemide (Lasix) injection 40 mg 40 mg, Intravenous, 2 TIMES DAILY (diuretics), 2 doses, First dose on Mon01/31/25 at 1115, Last dose on Mon01/31/25 at 1700, Protect from light $ Given 01/31/2025 5:25 PM CDT 40 mg $ Given 01/31/2025 12:11 PM CDT 40 mg furosemide (Lasix) injection 40 mg 40 mg, Intravenous, 2 TIMES DAILY (diuretics), 2 doses, First dose on 02/01/25 at 1130, Last dose on 02/01/25 at 1700, Protect from light $ Given 02/01/2025 5:18 PM CDT 40 mg $ Given 02/01/2025 11:28 AM CDT 40 mg glucagon (Glucagen) injection 1 mg 1 mg, Subcutaneous, PRN, Bedside Glucose less than 70 mg/dL - If NOT able to eat and/or NPO and withOUT IV Access, Starting on [place] 01/30/25 at 1211, Until 02/02/25 at 1529, If NOT able to eat and/or NPO and NO IV Access: For Bedside glucose 54-69 mg/dL - Give 1 mg subcutaneous For Bedside Glucose LESS than 54 mg/dl - verify with a second bedside glucose (from a different site) - Give 1 mg subcutaneous Re-check and Re-treat blood [...] Glucose less than 70 mg/dL, Starting on [place] 01/30/25 at 1211, Until 02/02/25 at 1529, If able to take oral medications: For [...] glucose is in question, confirm glucose with aSTAT laboratory test Give 30 grams of oral [...] choices) NOTIFY PROVIDER OF HYPOGLYCEMIC EVENT. HYDROcodone-acetaminophen ([place]) 10-325 MG tablet 1 tablet 1 tablet, Oral, Once, 1 dose, On [facility] 01/30/25 at 0300, Patient preference for lesser PRN [...] oral first unless patient cannot tolerate oral intake. $ Given 01/30/2025 3:03 AM CDT 1 tablet hydrOXYzine HCl (Atarax) tablet 50 mg 50 mg, Oral, 3 TIMES DAILY PRN, Anxiety, Starting on 02/01/25 at 1436, Until 02/02/25 at 1529 $ Given 02/02/2025 6:29 AM CDT 50 mg $ Given 02/01/2025 8:51 PM CDT 50 mg $ Given 02/01/2025 2:45 PM CDT 50 mg insulin aspart (NovoLOG) pen 0-12 Units 0-12 Units, Subcutaneous, 3 TIMES DAILY WITH MEALS, First dose on Mon01/31/25 at 1800, Until Discontinued, Standard Dose: Correction Insulin Bedside [...] combine and give at the same time. . WASTE DISPOSAL INSTRUCTIONS: Black Bin Disposal required. $ Given 02/02/2025 8:09 AM CDT 6 Units Abdominal Tissue $ Given 02/01/2025 5:18 PM CDT 6 Units Ab dominal Tissue $ Given 02/01/2025 1:02 PM CDT 10 Units Ab dominal Tissue insulin aspart (NovoLOG) pen 0-18 Units 0-18 Units, Subcutaneous, 3 TIMES DAILY WITH MEALS, First dose on [place] 01/30/25 at 0930, Until Discontinued, High Dose: Correction Insulin Bedside [...] combine and give at the same time. . WASTE DISPOSAL INSTRUCTIONS: Black Bin Disposal required. $ Given 01/31/2025 12:11 PM CDT 9 Units Abd Left Upper Quadrant $ Given 01/31/2025 8:38 AM CDT 6 Units Ab d Right Lower Quadrant $ Given 01/30/2025 5:20 PM CDT 6 Units Le ft Arm insulin aspart (NovoLOG) pen 0-7 Units 0-7 Units, Subcutaneous, AT BEDTIME, First dose on Mon01/30/25 at 2100, Until Discontinued, High Dose: Correction [...] and has orders for Mealtime insulin, combine andgive at the same time. . WASTE DISPOSAL INSTRUCTIONS: Black Bin Disposal required. $ Given 02/01/2025 8:58 PM CDT 3 Units Right Arm $ Given 01/31/2025 8:45 PM CDT 6 Units Ab dominal Tissue $ Given 01/30/2025 8:40 PM CDT 6 Units Ri ght Arm insulin aspart (NovoLOG) pen 6 Units 6 Units, Subcutaneous, 3 TIMES DAILY WITH MEALS, First dose on Mon01/31/25 at 1800, Until Discontinued, Hold MEALTIME insulin if patient is NPO or eating less than 50% of meal -OR- If carb intake for the meal is less than 30 grams. . WASTE DISPOSAL INSTRUCTIONS: Black Bin Disposal required. $ Given 02/02/2025 8:09 AM CDT 6 Units Abdominal Tissue $ Given 02/01/2025 5:19 PM CDT 6 Units Ab dominal Tissue $ Given 02/01/2025 1:02 PM CDT 6 Units Ab dominal Tissue insulin glargine (Lantus) pen 26 Units 26 Units (rounded from 25.74 Units = 0.2 Units/kg 128.7 kg), Subcutaneous, AT BEDTIME, First dose on [place] 01/30/25 at 2100, Until Discontinued, DO NOT HOLD even if patient is NPO Consider calling physician for dose reduction if patient is made NPO. . WASTE DISPOSAL INSTRUCTIONS: Black Bin Disposal required. $ Given 01/30/2025 8:41 PM CDT 26 Units Right Arm insulin glargine (Lantus) pen 26 Units 26 Units (rounded from 25.74 Units = 0.2 Units/kg 128.7 kg), Subcutaneous, DAILY, First dose (after last modification) on 02/01/25 at 0815, Until Discontinued, DO NOT HOLD even if patient is NPO Consider calling physician for dose reduction if patient is made NPO. . WASTE DISPOSAL INSTRUCTIONS: Black Bin Disposal required. $ Given 02/02/2025 8:09 AM CDT 26 Units Abdominal Tissue $ Given 02/01/2025 8:01 AM CDT 26 Units Ab dominal Tissue lidocaine (Lidoderm) 5 % patch 1 patch 1 patch, Administer over 12 Hours, AT BEDTIME, First dose on 02/01/25 at 2115, Until Discontinued, Apply to back and remove patch after a max of 12 hours of application within a 24 hour period. $ Applied 02/01/2025 9:05 PM CDT 1 patch Back melatonin tablet 3 mg 3 mg, Oral, AT BEDTIME PRN - MR X 1, Insomnia, Starting on [place] 01/30/25 at 0531, Until 02/02/25 at 1529, may repeat x 1 after 30 minutes if no benefit of no sleep maintenance $ Given 02/01/2025 8:51 PM CDT 3 mg $ Given 01/30/2025 9:49 PM CDT 3 mg nystatin (Mycostatin) suspension 5 mL 5 mL, Swish and Swallow, 4 TIMES DAILY, First dose on [place] 01/30/25 at 0800, Until Discontinued, Swish in mouth as long as possible. Shake well prior to administration. $ Given 02/02/2025 8:0 9 AM CDT 5 mL $ Given 02/01/2025 8:52 PM CDT 5 mL $ Given 02/01/2025 5:18 PM CDT 5 mL ondansetron (disintegrating) (Zofran ODT) tablet 4 mg 4 mg, Oral, EVERY 6 HOURS PRN, Nausea/Vomiting, Starting on [place] 01/30/25 at 0531, Until 02/02/25 at 1529, Dissolved orally on tongue ondansetron (Zofran) injection 4 mg 4 mg, Intravenous, EVERY 6 HOURS PRN, Nausea/Vomiting, Starting on [place] 01/30/25 at 0531, Until 02/02/25 at 1529, Administer IV if patient is NPO, actively vomiting, or unable to swallow. $ Given 02/01/2025 9:27 AM CDT 4 m g oxyCODONE-acetaminophen (Percocet) 10-325 MG tablet 1 tablet 1 tablet, Oral, EVERY 4 HOURS PRN, Moderate Pain, Starting on [place] 01/30/25 at 0600, Until 02/02/25 at 1529, Patient preference for lesser PRN pain meds [...] oral first unless patient cannot tolerate oral intake. $ Given 02/02/2025 11:25 AM CDT 1 tablet $ Given 02/02/2025 6:29 AM CDT 1 tablet $ Given 02/01/2025 8:51 PM CDT 1 tablet predniSONE (Deltasone) tablet 20 mg 20 mg, Oral, DAILY WITH BREAKFAST, First dose on Valeri 01/30/25 at 0845, Until Discontinued $ Given 02/02/2025 8:09 AM CDT 20 mg $ Given 02/01/2025 8:00 AM CDT 20 mg $ Given 01/31/2025 8:25 AM CDT 20 mg rivaroxaban (Xarelto) tablet 20 mg 20 mg, Oral, DAILY WITH BREAKFAST, First dose on Valeri 01/30/25 at 0845, Until Discontinued, For tube administration, please refer to the MAR References links: Administration Dose of 15 mg or greater should be taken with foodIndications:Deep Vein Thrombosis,Pulmonary Embolism $ Given 02/02/2025 8:09 AM CDT 20 mg $ Given 02/01/2025 8:00 AM CDT 20 mg $ Given 01/31/2025 8:25 AM CDT 20 mg rOPINIRole (Requip) tablet 5 mg 5 mg, Oral, AT BEDTIME, First dose on Valeri 01/30/25 at 2230, Until Discontinued $ Given 02/01/2025 8:51 PM CDT 5 mg $ Given 01/31/2025 8:45 PM CDT 5 mg $ Given 01/30/2025 9:49 PM CDT 5 mg throat lozenge 1 lozenge 1 lozenge, Oral, EVERY 2 HOURS PRN, Sore Throat, Starting on Valeri 01/30/25 at 0711, Until 02/02/25 at 1529 $ Given 01/30/2025 11:29 PM CDT 1 lozenge $ Given 01/30/2025 2:54 PM CDT 1 lozenge valsartan (Diovan) tablet 80 mg 80 mg, Oral, DAILY, First dose on Valeri 01/30/25 at 0200, Until Discontinued $ Given 02/02/2025 8:09 AM CDT 80 mg $ Given 02/01/2025 8:00 AM CDT 80 mg $ Given 01/31/2025 8:25 AM CDT 80 mg documented in this encounter Active and Recently Administered Medications Times are shown in CDT. Scheduled Medication Order 01/31/2025 02/01/2025 02/02/2025 0.9% NaCl injection 3 mL (CANCELED)(Linked Group 1) 3 mL, Intracatheter, EVERY 8 HOURS, First dose on Valeri 01/30/25 at 0145, Until Discontinued, Flush peripheral IV catheter with 3 mL of normal saline every 8 hours. 0543 ($ Given - Provider: Patrick San RN)0237 (Not Administered - Provider: Daisy Kiser - Reason: See Comments - Comment: recently flushed with meds)2048 ($ Given - Provider: Nayeli Moncada RN) 0444 (Not Administered - Provider: Nayeli Moncada RN - Reason: Documented on duplicate row)1212 (Not Administered - Provider: Anais Jones RN - Reason: Documented on duplicate row)2107 (Not Administered - Provider: Gil Reed RN - Reason: Documented on duplicate row) 0505 (Not Administered - Provider: Gil Reed RN - Reason: Documented on duplicate row) 0.9% NaCl injection 3 mL(Linked Group 2) 3 mL, Intracatheter, EVERY 8 HOURS, First dose on Mon01/30/25 at 0615, Until Discontinued, Flush peripheral IV catheter with 3 mL of normal saline every 8 hours. 0543 ($ Given - Provider: Patrick San RN)1513 (Not Administered - Provider: Daisy Kiser - Reason: Documented on duplicate row)2048 (Not Administered - Provider: Nayeli Moncada RN - Reason: Documented on duplicate row) 0444 ($ Given - Provider: Nayeli Moncada RN)121 (Not Administered - Provider: Anais Jones RN - Reason: Documented on duplicate row)2104 ($ Given - Provider: Gil Reed RN) 0505 (Not Administered - Provider: Gil Reed RN - Reason: Patient sleeping)1400 (Due) aspirin chew tablet 81 mg 81 mg, Oral, DAILY, First dose on Mon01/30/25 at 0900, Until Discontinued 08 ($ Given - Provider: Daisy Kiser) 0800 ($ Given - Provider: Anais Jones RN) 08 ($ Given - Provider: Anais Jones RN) atorvastatin (Lipitor) tablet 40 mg 40 mg, Oral, AT BEDTIME, First dose on Mon01/30/25 at 2100, Until Discontinued 2044 ($ Given - Provider: Nayeli Moncada RN) 2050 ($ Given - Provider: Gil Reed RN) diclofenac sodium (Voltaren) 1 % gel 2 g 2 g, Topical, 4 TIMES DAILY, First dose on Mon01/31/25 at 1000, Until Discontinued, Use dosing card to apply gel to back. Do not discard dosing card. . WASTE DISPOSAL INSTRUCTIONS: Black Bin Disposal required. 1010 (Not Administered - Provider: Daisy Kiser - Reason: Medication not available)1212 ($ Given - Provider: Daisy Kiser)1725 ($ Given - Provider: Daisy Kiser)2045 ($ Given - Provider: Nayeli Moncada RN) 0800 (Not Administered - Provider: Anais Jones RN - Reason: Refused-Patient)1148 (Not Administered - Provider: Anais Jones RN - Reason: Refused-Patient)1650 (Not Administered - Provider: Anais Jones RN - Reason: Refused-Patient)205 ($ Given - Provider: Gil Reed, NURIS) 0810 (Not Administered - Provider: Anais Jones RN - Reason: Refused-Patient)1115 (Not Administered - Provider: Anais Jones RN - Reason: Refused-Patient) empagliflozin (Jardiance) tablet 10 mg 10 mg, Oral, DAILY, First dose on Valeri 01/30/25 at 1130, Until Discontinued, Restricted to the indication of Heart Failure and/or CKD only due to risk of hypoglycemic when used for DM in acute care settings. Indication for use? Heart Failure 0825 ($ Given - Provider: Daisy Kiser) 0800 ($ Given - Provider: Anais Jones RN) 0809 ($ Given - Provider: Anais Jones RN) furosemide (Lasix) injection 40 mg (COMPLETED) 40 mg, Intravenous, 2 TIMES DAILY (diuretics), 2 doses, First dose on Mon01/31/25 at 1115, Last dose on Mon01/31/25 at 1700, Protect from light 1211 ($ Given - Provider: Daisy Kiser)1725 ($ Given - Provider: Daisy Kiser) furosemide (Lasix) injection 40 mg (COMPLETED) 40 mg, Intravenous, 2 TIMES DAILY (diuretics), 2 doses, First dose on 02/01/25 at 1130, Last dose on 02/01/25 at 1700, Protect from light 1128 ($ Given - Provider: nAais Jones RN)1718 ($ Given - Provider: Anais Jones RN) insulin aspart (NovoLOG) pen 0-12 Units 0-12 Units, Subcutaneous, 3 TIMES DAILY WITH MEALS, First dose on Mon01/31/25 at 1800, Until Discontinued, Standard Dose: Correction Insulin Bedside [...] combine and give at the same time. . WASTE DISPOSAL INSTRUCTIONS: Black Bin Disposal required. 1723 ($ Given - Provider: Daisy Kiser) 0759 ($ Given - Provider: Anais Jones RN)1302 ($ Given - Provider: Anais Jones RN)1718 ($ Given - Provider: Anais Jones RN) 0809 ($ Given - Provider: Anais Jones RN)1200 (Due) insulin aspart (NovoLOG) pen 0-18 Units (CANCELED) 0-18 Units, Subcutaneous, 3 TIMES DAILY WITH MEALS, First dose on Mon01/30/25 at 0930, Until Discontinued, High Dose: Correction Insulin Bedside [...] combine and give at the same time. . WASTE DISPOSAL INSTRUCTIONS: Black Bin Disposal required. 0838 ($ Given - Provider: Daisy Kiser)1211 ($ Given - Provider: Daisy Kiser) insulin aspart (NovoLOG) pen 0-7 Units 0-7 Units, Subcutaneous, AT BEDTIME, First dose on Mon01/30/25 at 2100, Until Discontinued, High Dose: Correction [...] and has orders for Mealtime insulin, combine andgive at the same time. . WASTE DISPOSAL INSTRUCTIONS: Black Bin Disposal required. 2044 ($ Given - Provider: Nayeli Moncada, NURIS) 2057 ($ Given - Provider: Gil Reed RN) insulin aspart (NovoLOG) pen 6 Units 6 Units, Subcutaneous, 3 TIMES DAILY WITH MEALS, First dose on Mon01/31/25 at 1800, Until Discontinued, Hold MEALTIME insulin if patient is NPO or eating less than 50% of meal -OR- If carb intake for the meal is less than 30 grams. . WASTE DISPOSAL INSTRUCTIONS: Black Bin Disposal required. 1723 ($ Given - Provider: Daisy Kiser) 0759 ($ Given - Provider: Anais Jones, NURIS)1302 ($ Given - Provider: Anais Jones, NURIS)1719 ($ Given - Provider: Anais Jones, RN) 0809 ($ Given - Provider: Anais Jones, RN)1200 (Due) insulin glargine (Lantus) pen 26 Units 26 Units (rounded from 25.74 Units = 0.2 Units/kg 128.7 kg), Subcutaneous, DAILY, First dose (after last modification) on 02/01/25 at 0815, Until Discontinued, DO NOT HOLD even if patient is NPO Consider calling physician for dose reduction if patient is made NPO. . WASTE DISPOSAL INSTRUCTIONS: Black Bin Disposal required. 0801 ($ Given - Provider: Anais Jones, NURIS) 0809 ($ Given - Provider: Anais Jones, RN) lidocaine (Lidoderm) 5 % patch 1 patch 1 patch, Administer over 12 Hours, AT BEDTIME, First dose on 02/01/25 at 2115, Until Discontinued, Apply to back and remove patch after a max of 12 hours of application within a 24 hour period. 2104 ($ Applied - Provider: Gil Reed RN) 0810 (Removed - Provider: Anais Jones RN) nystatin (Mycostatin) suspension 5 mL 5 mL, Swish and Swallow, 4 TIMES DAILY, First dose on Valeri 01/30/25 at 0800, Until Discontinued, Swish in mouth as long as possible. Shake well prior to administration. 08 ($ Given - Provider: Daisy Kiser)1211 ($ Given - Provider: Daisy Kiser)1725 ($ Given - Provider: Daisy Kiser)2044 ($ Given - Provider: Nayeli Moncada RN) 0800 ($ Given - Provider: Anais Jones RN)1302 ($ Given - Provider: Anais Jones RN)1718 ($ Given - Provider: Anais Jones RN)2051 ($ Given - Provider: Gil Reed RN) 0809 ($ Given - Provider: Anais Jones RN)1300 (Due - Provider: Merary Arevalo, YordyD) predniSONE (Deltasone) tablet 20 mg 20 mg, Oral, DAILY WITH BREAKFAST, First dose on Valeri 01/30/25 at 0845, Until Discontinued 824 ($ Given - Provider: Daisy Kiser) 0800 ($ Given - Provider: Anais Jones RN) 0809 ($ Given - Provider: Anais Jones RN) rivaroxaban (Xarelto) tablet 20 mg 20 mg, Oral, DAILY WITH BREAKFAST, First dose on Valeri 01/30/25 at 0845, Until Discontinued, For tube administration, please refer to the MAR References links: Administration Dose of 15 mg or greater should be taken with food 08 ($ Given - Provider: Daisy Kiser) 0800 ($ Given - Provider: Anais Jones RN) 0809 ($ Given - Provider: Anais Jones RN) rOPINIRole (Requip) tablet 5 mg 5 mg, Oral, AT BEDTIME, First dose on Valeri 01/30/25 at 2230, Until Discontinued 2044 ($ Given - Provider: Nayeli Moncada RN) 2050 ($ Given - Provider: Gil Reed, NURIS) valsartan (Diovan) tablet 80 mg 80 mg, Oral, DAILY, First dose on Valeri 01/30/25 at 0200, Until Discontinued 0825 ($ Given - Provider: Daisy Kiser) 08 ($ Given - Provider: Anais Jones, RN) 0809 ($ Given - Provider: Anais Jones, RN) PRN Medication Order 01/31/2025 02/01/2025 02/02/2025 0.9% NaCl injection 1-10 mL(Linked Group 2) 1-10 mL, Intracatheter, PRN, Other, peripheral line flush, Starting on Valeri 01/30/25 at 0530, Until 02/02/25 at 1529, Flush peripheral IV catheter with 1-10 mL of normal saline before and after medications and prn to clear blood from the line or to verify patency. 1128 ($ Given - Provider: Anais Jones RN) acetaminophen (Tylenol) tablet 500 mg 500 mg, Oral, EVERY 8 HOURS PRN, Fever, Mild Pain, Headache, Starting on Valeri 01/30/25 at 0710, Until 02/02/25 at 1529, Patient preference for lesser PRN pain meds [...] oral first unless patient cannot tolerate oral intake. 05 ($ Given - Provider: Patrick San RN) 2049 ($ Given - Provider: Gil Reed, NURIS) 06 ($ Given - Provider: Gil Reed, NURIS) albuterol HFA (Proventil; Ventolin; Proair) 108 (90 Base) MCG/ACT inhaler 2 puff 2 puff, Inhalation, EVERY 6 HOURS PRN, Shortness of Breath, Wheezing, Starting on Valeri 01/30/25 at 0710, Until 02/02/25 at 1529, Shake well before using. WASTE DISPOSAL INSTRUCTION: Send to Pharmacy for Disposal. benzonatate (Tessalon) capsule 100 mg 100 mg, Oral, 3 TIMES DAILY PRN, Cough, Starting on Valeri 01/30/25 at 0711, Until 02/02/25 at 1529 dextrose IV 12.5 g(Linked Group 3) 12.5 g, Intravenous, PRN, Other, Bedside Glucose less than 70 mg/dL -If NOT able to eat and/or NPO and with IV Access, Starting on Valeri 01/30/25 at 1211, Until 02/02/25 at 1529, If NOT able to eat and/or NPO [...] HYPOGLYCEMIC EVENT. dextrose IV 25 g(Linked Group 3) 25 g, Intravenous, PRN, Other, Bedside Glucose less than 70 mg/dL -If NOT able to eat and/or NPO and with IV Access, Starting on Valeri 01/30/25 at 1211, Until 02/02/25 at 1529, If NOT able to eat and/or NPO and with IV Access: For Bedside Glucose LESS than 54 mg/dl [...] (Benadryl) capsule 50 mg 50 mg, Oral, AT BEDTIME PRN, Insomnia, Starting on Valeri 01/30/25 at 0532, Until 02/02/25 at 1529 glucagon (Glucagen) injection 1 mg(Linked Group 3) 1 mg, Subcutaneous, PRN, Bedside Glucose less than 70 mg/dL - If NOT able to eat and/or NPO and withOUT IV Access, Starting on Valeri 01/30/25 at 1211, Until 02/02/25 at 1529, If NOT able to eat and/or NPO and NO IV Access: For Bedside glucose 54-69 mg/dL - Give 1 mg subcutaneous For Bedside Glucose LESS than 54 mg/dl - verify with a second bedside glucose (from a different site) - Give 1 mg subcutaneous Re-check and Re-treat blood [...] Glucose less than 70 mg/dL, Starting on Valeri 01/30/25 at 1211, Until 02/02/25 at 1529, If able to take oral medications: For [...] glucose is in question, confirm glucose with aSTAT laboratory test Give 30 grams of oral [...] OF HYPOGLYCEMIC EVENT. hydrOXYzine HCl (Atarax) tablet 50 mg 50 mg, Oral, 3 TIMES DAILY PRN, Anxiety, Starting on 02/01/25 at 1436, Until 02/02/25 at 1529 1445 ($ Given - Provider: Anais Jones RN)2051 ($ Given - Provider: Gil Reed, NURIS) 0629 ($ Given - Provider: Gil Reed, NURIS) melatonin tablet 3 mg 3 mg, Oral, AT BEDTIME PRN - MR X 1, Insomnia, Starting on Valeri 01/30/25 at 0531, Until 02/02/25 at 1529, may repeat x 1 after 30 minutes if no benefit of no sleep maintenance 2050 ($ Given - Provider: Gil Reed, RN) ondansetron (disintegrating) (Zofran ODT) tablet 4 mg(Linked Group 4) 4 mg, Oral, EVERY 6 HOURS PRN, Nausea/Vomiting, Starting on Valeri 10 at 0531, Until 02/02/25 at 1529, Dissolved orally on tongue 09 (See Alternative - Provider: Anais Jones, RN) ondansetron (Zofran) injection 4 mg(Linked Group 4) 4 mg, Intravenous, EVERY 6 HOURS PRN, Nausea/Vomiting, Starting on Valeri 10 at 0531, Until 02/02/25 at 1529, Administer IV if patient is NPO, actively vomiting, or unable to swallow. 926 ($ Given - Provider: Anais Jones RN) oxyCODONE-acetaminophen (Percocet) 10-325 MG tablet 1 tablet 1 tablet, Oral, EVERY 4 HOURS PRN, Moderate Pain, Starting on Valeri 01/30/25 at 0600, Until 02/02/25 at 1529, Patient preference for lesser PRN pain meds [...] oral first unless patient cannot tolerate oral intake. 0543 ($ Given - Provider: Patrick San RN)1222 ($ Given - Provider: Daisy Kiser)1757 ($ Given - Provider: Luisa Garcia RN) 0444 ($ Given - Provider: Nayeli Moncada RN)1128 ($ Given - Provider: Anais Jones, NURIS)1740 ($ Given - Provider: Anais Jones, NURIS)2050 ($ Given - Provider: Gil Reed, NURIS) 0629 ($ Given - Provider: Gil Reed RN)1125 ($ Given - Provider: Anais Jones RN) throat lozenge 1 lozenge 1 lozenge, Oral, EVERY 2 HOURS PRN, Sore Throat, Starting on Valeri 01/30/25 at 0711, Until 02/02/25 at 1529 Linked Groups Order Group 1: SALINE LOCK, INSERT AND MAINTAIN (CANCELED) Routine, CONTINUOUS, Starting on Valeri 01/30/25 at 0115, Until Specified, New collection, Task Completed: Yes And 0.9% NaCl injection 3 mL (CANCELED)Jump to med 3 mL, Intracatheter, EVERY 8 HOURS, First dose on Valeri 01/30/25 at 0145, Until Discontinued, Flush peripheral IV catheter with 3 mL of normal saline every 8 hours. And 0.9% NaCl injection 1-10 mL (CANCELED) 1-10 mL, Intracatheter, PRN, Other, peripheral line flush, Starting on Valeri 01/30/25 at 0103, Until 02/02/25 at 1117, Flush peripheral IV catheter with 1-10 mL of normal saline before and after medications and prn to clear blood from the line or to verify patency. Group 2: SALINE LOCK, INSERT AND MAINTAIN (CANCELED) Routine, CONTINUOUS, Starting on Valeri 01/30/25 at 0545, Until Specified, New collection And 0.9% NaCl injection 3 mLJump to med 3 mL, Intracatheter, EVERY 8 HOURS, First dose on Valeri 01/30/25 at 0615, Until Discontinued, Flush peripheral IV catheter with 3 mL of normal saline every 8 hours. And 0.9% NaCl injection 1-10 mLJump to med 1-10 mL, Intracatheter, PRN, Other, peripheral line flush, Starting on Valeri 01/30/25 at 0530, Until 02/02/25 at 1529, Flush peripheral IV catheter with 1-10 mL of normal saline before and after medications and prn to clear blood from the line or to verify patency. Group 3: dextrose IV 12.5 gJump to med 12.5 g, Intravenous, PRN, Other, Bedside Glucose less than 70 mg/dL -If NOT able to eat and/or NPO and with IV Access, Starting on Valeri 01/30/25 at 1211, Until 02/02/25 at 1529, If NOT able to eat and/or NPO [...] NPO and with IV Access, Starting on Valeri 01/30/25 at 1211, Until 02/02/25 at 1529, If NOT able to eat and/or NPO and with IV Access: For Bedside Glucose LESS than 54 mg/dl [...] NPO and withOUT IV Access, Starting on Valeri 01/30/25 at 1211, Until 02/02/25 at 1529, If NOT able to eat and/or NPO and NO IV Access: For Bedside glucose 54- 69 mg/dL - Give 1 mg subcutaneous For Bedside Glucose LESS than 54 mg/dl - verify with a second bedside glucose (from a different site) - Give 1 mg subcutaneous Re-check and Re-treat blood glucose EVERY 10-25 minutes until blood glucose GREATER than or equal to 80 mg/dl. NOTIFY PROVIDER OF HYPOGLYCEMIC EVENT. Reconstitute vial with 1 mL of sterile water for injection for a final concentration of 1 mg/mL; shake vial gently; use immediately and discard unused portion Group 4: ondansetron (disintegrating) (Zofran ODT) tablet 4 mgJump to med 4 mg, Oral, EVERY 6 HOURS PRN, Nausea/Vomiting, Starting on Valeri 01/30/25 at 0531, Until 02/02/25 at 1529, Dissolved orally on tongue Or ondansetron (Zofran) injection 4 mgJump to med 4 mg, Intravenous, EVERY 6 HOURS PRN, Nausea/Vomiting, Starting on Valeri 01/30/25 at 0531, Until 02/02/25 at 1529, Administer IV if patient is NPO, actively vomiting, or unable to swallow. documented in this encounter Care Teams Body Repairer Relationship Specialty Start Date End Date Justen Gale MD PCP - General 07/05/21 documented as of this encounter
--- OUTSIDE RECORDS SUMMARY | 2025-01-30 01:13 | XMS_ITS | Encounter Summary ---
Author Organization [facility] Address [address] [facility] [place] [address] Care Team Providers Care Area Loss Prevention Manager Name Role Phone Justen Gale MD Primary Care Provider [phone] Reason for Referral * (Routine) - Authorized Specialty Diagnoses / Procedures Referred By Elyssa benavides Referred To Contact Procedures Follow up with provider Darvin Parekh MD [address] [place] [address] Phone: tel: fax: [place] [address] [place] [address] [address] [place] [address] Phone: tel: fax: Referral ID Status Reason Start Date Expiration Date V isits Requested Visits Authorized [id number] Authorized 02/02/2025 02/02/2026 1 1 * (Routine) - Authorized Specialty Diagnoses / Procedures Referred By Contkristina t Referred To Contact Procedures Follow up with provider Darvin Parekh MD [address] [place] [address] Phone: tel: fax: Xavier Coronado MD [address] [address] Phone: tel: fax: Referral ID Status Reason Start Date Expiration Date V isits Requested Visits Authorized [id number] Authorized 02/02/2025 02/02/2026 1 1 * Home Connections (Routine) - Pending Review Specialty Diagnoses / Procedures Referred By Elyssa benavides Referred To Contact Home Health Services Diagnoses Acute on chronic diastolic congestive heart failure (HCC) Darvin Parekh MD [address] [place] [address] Phone: tel: fax: [facility] Health at Home Scheduling [address] [place] [address] Phone: tel: Referral ID Status Reason Start Date Expiration Date Visits Requested Visits Authorized [id number] Pending Review Specialty Services Required 01/31/2026 999 999 Reason for Visit * Reason Comments Swelling Leg * Auth/Cert (Routine) Specialty Diagnoses / Procedures Referred By Elyssa benavides Referred To Contact Referral ID Status Reason Start Date Expiration Date Visits Re quested Visits Authorized [id number] 1 1 Encounter Details Date Type Department Care Team (Latest Contact Info) Description 01/30/2025 1:13 AM CDT - 02/02/2025 2:28 PM CDT Hospital Encounter [facility] 4W TELE [address] [place] [address] Ptasy Hill MD [address] [place] [address] Drew Calero MD [address] [facility] , [address] [place] [address] Darvin Parekh MD [address] [place] [address] Hospitalist Discharge Disposition: Home or [...] health care facility (including now)? No 05/16/2023 Housing Stability Vital [...] a [place] (including now)? Patient declined 01/03/2025 AUDIT-C Answer [...] and heating? Not hard at all 02/01/2025 [facility] - Occupational Stress [...] time in the past 12 m [facility], were you homeless or living in a [place] health care facility (including now)? 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 Follow Up Instructions for Patient: [...] tablet 2 01/06/2025 Continuous Blood Gluc Sensor (Baxano Surgicalyle Eileen [address]) [facility] [...] dissolve on the tongue 15 tablet 08/09/2024 Quorum ULTRA test strip 4 times daily 02/01/2021 [...] 2:00 PM Appointment with Xavier Coronado at [facility] ([phone]) [address] [place] [address] [address] [place] [address] Family Support (Name and Phone): Extended Emergency Contact Information Primary Emergency Contact: Jimmie Marques Address: [address] [place] [address] [place] [address] Relation: Spouse Secondary Emergency Contact: Yunior Velez Mobile Relation: Daughter Transportation at Discharge: Family: READMISSION RISK SCORE is 18.3 Name: Opal Graham RN [phone] * Xavier Coronado MD - 02/02/2025 11:32 AM CDT Images from the original note were not included. [facility] Inpatient Cardiology Consult Follow-up Note Name: Karly Marques, [id number] Age: [age] year old Room: 405/02 Date [...] input(s): CKMB, TROPONIN, MYOGLOBIN in the last 80552 hours. No results for input(s): PHART, PIB9PUW, PO2ART, Y8XWDQPO, RAY6LFC, BEART, FIO2 in the last 77053 hours. Recent Labs Component Name 01/31/25 0307 [...] further questions. Bill Coronado MD Interventional Cardiology [facility] 02/02/2025 11:32 AM [1] Past Medical [...] PEN) 31G X 8 MM needle Lancets (BIC Science and TechnologyUCH DELICA PLUS 33G EXTRA FINE LANCET) methotrexate [...] from the original note were not included. [facility] Inpatient Cardiology Consult Follow-up Note Name: Karly Marques, [id number] Age: [age] year old Room: 405/02 Date [...] input(s): CKMB, TROPONIN, MYOGLOBIN in the last 02789 hours. No results for input(s): PHART, OJN4AQP, PO2ART, Y2SVYNPE, EJR5BLF, BEART, FIO2 in the last 71321 hours. Recent Labs Component Name 01/31/25 0307 [...] further questions. Bill Coronado MD Interventional Cardiology [facility] 02/01/2025 10:59 AM [1] Past Medical [...] Parekh MD - 02/01/2025 8:15 AM CDT [facility] Medicine Progress Note [facility] Patient: Karly Marques Interval Update [...] SCREEN DIRECT W RFLX STREP A CULTURE [[id number]] (Normal) Collected: 01/30/25 1450 Lab Status: Final result Specimen: Microbiology from Throat Updated: 01/30/25 1517 Strep A Rapid Negative Narrative: Test has reflexed to a Strep A culture. CULTURE STREP GROUP A [[id number]] (Normal) Collected: 01/30/25 1450 Lab Status: Final [...] face time, family discussion, reviewing nursing and cassandra consultant notes, labs and imaging, discussing/coordinating care [...] Primary Emergency Contact: Jimmie Marques Address: [address] [place] [address] [place] [address] Relation: Spouse Secondary Emergency Contact: AgustinYunior Mobile Relation: Daughter Transportation at Discharge: Family: READMISSION RISK SCORE is 17.2 at 4:49 PM 01/31/2025.: Name: Opal Graham RN [phone] * Xavier Coronado MD - 01/31/2025 12:39 PM CDT Images from the original note were not included. [facility] Inpatient Cardiology Consult Follow-up Note Name: Karly Marques, [id number] Age: [age] year old Room: 405/02 Date [...] input(s): CKMB, TROPONIN, MYOGLOBIN in the last 17927 hours. No results for input(s): PHART, FKP5RXT, PO2ART, T8ZYLSEX, RCV9KRZ, BEART, FIO2 in the last 22369 hours. Recent Labs Component Name 01/31/25 0307 [...] further questions. Bill Coronado MD Interventional Cardiology [facility] 01/31/2025 12:39 PM [1] Past Medical History: Diagnosis Date Breast cancer (HCC) Chest pain DVT (deep venous thrombosis) ([facility]) GERD (gastroesophageal reflux disease) LUL (obstructive sleep [...] PEN) 31G X 8 MM needle Lancets (Quorum DELICA PLUS 33G EXTRA FINE LANCET) methotrexate 2.5 MG tablet Multiple Vitamins-Minerals (Multivitamin Womens 50+ Adv) TABS naloxone HCl (Narcan) 4 MG/0.1ML nasal spray ondansetron, disintegrating, (Zofran ODT) 4 MG tablet Quorum ULTRA test strip oxyBUTYnin CR 24hr (Ditropan [...] Not Occur Transfers: Sit to Stand: Modified Stanley Stand to Sit: Modified Stanley Toilet Transfers: Modified Stanley ADL Tasks: (Through observation and using clinical judgement) Oral Facial Hygiene: Modified Stanley (while seated at the sink pt washed face and brushed teeth) Upper Body Dressing: Modified Stanley (Adjusted gown while standing) Lower Body Dressing: Maximal Assistance (max A to adjust socks seated. Consistent to baseline function) Toileting: Modified Stanley (pt performed all aspects of toileting with [...] dc plan Mobility Status-White Board Mobility Status Communication-[place] Board Updated?: Yes' Please refer to the [...] social status at time of therapy assessment. AM-[facility] Basic mobility score for this patient is Mobility Raw Score:: 18 The -[facility] 6-clicks Basic Mobility TM is a [...] Parekh MD - 01/31/2025 8:24 AM CDT [facility] Medicine Progress Note [facility] Patient: Karly Marques Interval Update [...] <0.010 Recent Labs Component Name 02/22/23 0759 [facility] 14.6 Microbiology Results (Displays last 21 days for this encounter ONLY) Procedure Component Value - Date/Time STREP A SCREEN DIRECT W RFLX STREP A CULTURE [[id number]] (Normal) Collected: 01/30/251449 Lab Status: Final result Specimen: Microbiology from Throat Updated: 01/30/251516 Strep A Rapid Negative Narrative: Test has reflexed to a Strep A culture. CULTURE STREP GROUP A [[id number]] Collected: 01/30/25 145 Lab Status: In process [...] face time, family discussion, reviewing nursing and cassandra consultant notes, labs and imaging, discussing/coordinating care [...] medications to be filled at: [facility] [place] Medications Added: Methotrexate 15 mg every 7 [...] Reported on 01/30/2025 Continuous Blood Gluc Sensor (Baxano Surgicalyle Eileen [address]) [facility] Patient Yes No Sig: APPLY 1 SENSOR [...] Facility-Administered Medications: None ASSESSMENT AND PLAN The LAB SPECIALIST medication list has been updated and reflects the changes noted above. All medication changes noted above discussed with NA. * Kaylie Villanueva RN - 01/30/2025 1:57 PM CDT Care Coordination Initial Assessment [facility] Managed Medicare and Medicaid [place] Expected Discharge Date: 01/31/2025 Expected Discharge Disposition: Home or Self Care Transportation at Discharge: Family Daughter. - Yunior Velez - [phone] Spouse Jimmie Marques is not in their [...] With: Housekeeping;Shopping;Meal Preparation;Medication Administration;Hygiene Daughter is her beam worker and assists with LB dressing, getting into shower safely, and IADLs (FWW, cane, shower chair, grab bars) Preferred Pharmacy: [id number] - [address] [place] [address] [address] [place] [address] [place] [address] READMISSION RISK SCORE is N/A at 1:57 PM 01/30/2025. Met with patient Family Support (name and phone): Extended Emergency Contact Information Primary Emergency Contact: Jimmie Marques Address: [address] [place] [address] [place] [address] Relation: Spouse Secondary Emergency Contact: Yunior Velez Mobile Relation: Daughter Patient or sales representative rural power requests care coordination reach out to family or caregiver listed above regarding discharge planning and at time of discharge? Yes Daughter. - Yunior Velez - [phone] Durable Medical Equipment Planning Type of Walker: Front Wheeled Walker Type of Cane: Standard/Quad Type of Bathroom Equipment: Shower Chair;Grab Bars;Hand Held Shower Head DME Provider: None List DME pt. requires but does not have.: None Director Speech Referral: No Will continue to follow. For any questions or needs please contact: Client Success Director: Kaylie Villanueva RN., CM Ascom: [phone] * Gil Pacheco RD/SARA - 01/30/2025 1:53 [...] Jardiance, sliding scale insulin, Prednisone. Last BM LAB SPECIALIST. Med/Surg History and Clinical Diagnoses: 69 year [...] (Comment) (sore throat) GI Concerns: Nausea Stools: LAB SPECIALIST Skin/Wound: intact Estimated Needs: KCAL: 1431 (30 [...] injection 20 mg, Intravenous, Now [COMPLETED] HYDROcodone-acetaminophen ([place]) 10-325 MG tablet 1 tablet, Oral, Once [...] often is assistance provided?: daughter is her beam worker and assists with LB dressing, getting [...] pt able to doff underwear, but not miner pick on own) Toileting: Supervision (to complete all [...] social status at time of therapy assessment. -[facility] Basic mobility score for this patient is Mobility Raw Score:: 21 The -[facility] 6-clicks Basic Mobility TM is a [...] Limits Bed Mobility: Supine to Sit: Complete Stanley Sit to Supine: Activity Does Not Occur [...] CDT 01/30/25936 Visit Type Assessment Date 01/30/25 Human Resources Operations Manager Visiting Patient JBN Pastoral Care Visit Type(s) Patient not available;Initial Visit (Patient with staff.) Visit Information Start time 936 End time 941 Total Time Spent with Patient (min) 5 Rev. David Valencia M.Div., M.A. Human Resources Operations Manager 4W/4E & Behavioral Health Monday - Monday 8:00 am - 4:30 pm Ascom [phone] Outside: [phone] For more urgent needs, please page at the appropriate pager number below. [facility] Pager: Call [phone] (Mon-Mon: 7:00 am - 4:00 pm & Sun 7:00 am - 3:00 pm). Pastoral Care On-Call Pager: Call [phone] (outside of the times listed above) and enter a 10 digit call back number. Please allow the consulting manager shed hand 30 minutes to arrive to the hospital. [...] day after. Darvin Parekh MD Internal Medicine [facility] documented in this encounter H&P Notes * Jayla Bettencourt, MECHANIC GENERAL OPERATIONAL TEST-BARBER APPRENTICE - 01/30/2025 3:36 AM CDT [facility] Medicine History and Physical [facility] [...] states that's new for her. Admitted for [facility] w/u. Review of Systems [...] Strain - Medium Risk (12/03/2024) Received from [facility] Overall Financial Resource Strain (CARDIA) How [...] (Non-Medical): Patient declined Stress: Patient Declined (01/03/2025) [facility] - Occupational Stress Questionnaire [...] <0.010 Recent Labs Component Name 02/22/23 0759 [facility] 14.6 Microbiology Results (Displays last 21 [...] -Longacting and SSI ordered -Diabetic diet ordered -Lens Matcher consult ordered for uncontrolled glucose Polymyositis: -Follows [...] face time, family discussion, reviewing nursing and cassandra consultant notes, labs and imaging, discussing/coordinating care with the care team, and documentation. Jayla Bettencourt, MECHANIC GENERAL OPERATIONAL TEST-BARBER APPRENTICE 01/30/2025 3:49 AM [1] Past Medical History: [...] time of this visit. Pt identifies as caodaism and expressed that family dynamics is supportive for emotional and spiritual well- being. Pt reflected on illness journey, missy connection and family dynamics. Pt expressed that she is missing home. Human Resources Operations Manager provided conversation, empathic listening, afffirmation and encouragement. Remi Sterling, Sample Book Maker ASCOM: [id number] Outside: [phone] For more urgent needs, please page at the appropriate pager number below. [place] Pastoral Care pager - Call [phone] (Mon-Fri: 7AM - 4PM and Sun 7AM - 3PM). PastoralCare consulting manager pager - Call [phone] (outside of the times listed above) and enter a 10 digit call back number. Please allow the consulting manager shed hand 30 minutes to arrive to the hospital. 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 Rod in [place] [x] Recommend Follow Up Outpatient Diabetes Education Visit (requires MD order) Level of engagement during this visit: Good Level of understanding: Good Additional notes: The pt is interested in an insulin pump. D/w pt possible advantages. Encouraged her to d/w OP campus recruiter. Pt verbalized understanding of today's DM education. [...] CARDIOLOGY Karly Marques :1955 AGE:[age] year old [facility] - Heart & Vascular Care Cardiology Consult [...] [facility] Patient Yes No Sig: APPLY 1 SENSOR [...] Readmission Risk Score: If there is no DIET TECH Total Score indicated, this patient has yet [...] injection 20 mg, Intravenous, Now [COMPLETED] HYDROcodone-acetaminophen ([place]) 10-325 MG tablet 1 tablet, Oral, Once [...] are any further questions. Gil Perrin MD [facility] Office [facility] ASCOM: [1] Allergies Allergen Reactions Latex Rash [...] CDT Report given to Nathan LAWLER ascom [phone] * Rosie Alex RN - 01/30/2025 3:39 AM CDT [facility] ED RN/SENIOR PARALEGAL to Floor Nursing Report Arrival Information: Chief Complaint and living arrangements: Karly Marques is a 69 year old year old female that arrived with a Chief Complaint of Swelling Leg . Code Status: Prior. Orientation status: A&O x 4 The patient came from home and lives with self. Patient condition/situation: stable Floor nurse information: Direct ED RN Phone Number: #[phone] Does the ED Nurse need to speak [...] (20 mg Intravenous $ Given 01/30/25302) HYDROcodone-acetaminophen ([place]) 10-325 MG tablet 1 tablet (1 tablet [...] information from this note is pulled from sougou and not added by the note creator every effort has been made to ensure accuracy however as [facility] updates this note will not update once signed. [1] * Rosie Alex RN - 01/30/2025 3:08 AM CDT Pt placed on purewick at this time * Rosie Alex RN - 01/30/2025 1:48 AM CDT Lab to add on NT-pro BNP * Patsy Hill MD - 01/30/2025 1:44 AM CDT Karly Sykesrangel [id number] ER AT [facility] History Chief Complaint Patient presents with Swelling [...] Strain - Medium Risk (12/03/2024) Received from [facility] Overall Financial Resource Strain (CARDIA) How [...] (Non-Medical): Patient declined Stress: Patient Declined (01/03/2025) [facility] - Occupational Stress Questionnaire [...] her chronic pain and she does take [place] 10 mg at home per the patient, [...] rhythm. Ventricular rate 86 beats per minute. DC interval is 114 milliseconds, QRS duration 86 [...] mg furosemide (Lasix) injection 20 mg HYDROcodone-acetaminophen ([place]) 10-325 MG tablet 1 tablet [1] Past [...] dissolve on the tongue 15 tablet 0 DuolingoTOUCH ULTRA test strip 4 times daily oxyBUTYnin [...] Description 02/04/2025 2:00 PM CDT Office Visit [facility] [address] [place], [place] [id number] [place] [address] Xavier Coronado MD [address] [place] [address] Scheduled Orders Name Type Priority Associated [...] PANEL (CALCIUM TOTAL) (02/02/2025 8:23 AM CDT) [facility] Signature Glucose 224(H) 70 - 99 mg/dL 02/02/2025 9:03 AM CDT [facility] Sodium 137 136 - 145 mmol/L 02/02/2025 9:03 AM CDT [facility] Potassium 3.5 3.5 - 5.1 mmol/L 02/02/2025 9:03 AM T [facility] Chloride 94(L) 98 - 107 mmol/L 02/02/2025 9:03 AM T [facility] CO2 30(H) 22 - 29 mmol/L 02/02/2025 9:03 AM T [facility] Calcium 10.0 8.4 - 10.4 mg/dL 02/02/2025 9:03 AM T [facility] Anion Gap 13 6 - 16 mmol/L 02/02/2025 9:03 AM CDT [facility] BUN 48(H) 7 - 26 mg/dL 02/02/2025 9:03 AM T [facility] Creatinine 1.10 0.50 - 1.20 mg/dL 02/02/2025 9:03 AM [facility] eGFR by CKD-EPI 55(L) >=90 mL/min/1.7 3 m2 02/02/2025 9:03 AM T [facility] Comment:Estimated Glomerular Filtration Rate (eGFR) calculated using the CKD-EPI Creatinine Equation (2020), per the National Kidney Foundation and [place] Society of Nephrology recommendations. Blood BLOOD SPECIMEN / Unknown Lab Venipuncture / Unknown 02/02/2025 8:23 AM CDT 02/02/2025 8:38 AM T us Darvin Parekh MD LAB - CHEMISTRY ORDERABLES Deann bowman Result [facility] [address] [place], [place] [id number] * (ABNORMAL) GLUCOSE - POINT OF CARE (02/02/2025 7:43 AM CDT) Glucose WB/POC 231(H) 70 - 99 mg/dL 02/02/2025 7:53 AM CDT [facility] Specimen Type Arterial/C apillary 02/02/2025 7:53 AM CDT [facility] Blood BLOOD SPECIMEN / Unknown 02/02/2025 7:43 AM CDT 02/02/2025 7:53 AM CDT Darvin Parekh MD LAB - POINT OF CARE ORDERABLES Final Result Performing Organization Address City/[facility]/ZIP Co de Phone Number [facility] [address] [place] [phone] * (ABNORMAL) GLUCOSE - POINT OF CARE (02/01/2025 8:57 PM CDT) Glucose WB/POC 225(H) 70 - 99 mg/dL 02/03/2025 6:12 AM CDT [facility] Specimen Type Arterial/C apillary 02/03/2025 6:12 AM CDT [facility] Blood BLOOD SPECIMEN / Unknown 02/01/2025 8:57 PM CDT 02/03/2025 6:12 AM CDT Darvin Parekh MD LAB - POINT OF CARE ORDERABLES Final Result [facility] [address] [place] [id number] * (ABNORMAL) GLUCOSE - POINT OF CARE (02/01/2025 7:29 PM CDT) Glucose WB/POC 308(H) 70 - 99 mg/dL 02/01/2025 7:35 PM CDT [facility] Specimen Type Arterial/C apillary 02/01/2025 7:35 PM CDT [facility] Blood BLOOD SPECIMEN / Unknown 02/01/2025 7:29 PM CDT 02/01/2025 7:35 PM CDT Darvin Parekh MD LAB - POINT OF CARE ORDERABLES Final Result [facility] [address] [place] [address] * (ABNORMAL) GLUCOSE - POINT OF CARE (02/01/2025 5:12 PM CDT) Glucose WB/POC 250(H) 70 - 99 mg/dL 02/01/2025 5:18 PM CDT [facility] Specimen Type Arterial/C apillary 02/01/2025 5:18 PM CDT [facility] Blood BLOOD SPECIMEN / Unknown 02/01/2025 5:12 PM CDT 02/01/2025 5:18 PM CDT Darvin Parekh MD LAB - POINT OF CARE ORDERABLES Final Result Performing Organization Address [facility] Co de Phone Number [facility] [address] [place] [address] * (ABNORMAL) GLUCOSE - POINT OF CARE (02/01/2025 12:15 PM CDT) Glucose WB/POC 306(H) 70 - 99 mg/dL 02/01/2025 12:33 PM CDT [facility] Specimen Type Arterial/C apillary 02/01/2025 12:33 PM CDT [facility] Blood BLOOD SPECIMEN / Unknown 02/01/2025 12:15 PM CDT 02/01/2025 12:33 PM CDT Darvin Parekh MD LAB - POINT OF CARE ORDERABLES Final Result [facility] [address] [place] [address] * (ABNORMAL) BASIC METABOLIC PANEL (CALCIUM TOTAL) (02/01/2025 11:32 AM CDT) Glucose 296(H) 70 - 99 mg/dL 02/01/2025 12:20 PM CDT [facility] Sodium 133(L) 136 - 145 mmol/L 02/01/2025 12:20 PM CDT [facility] Potassium 4.6 3.5 - 5.1 mmol/L 02/01/2025 12:20 PM CDT [facility] Chloride 96(L) 98 - 107 mmol/L 02/01/2025 12:20 PM CDT [facility] CO2 23 22 - 29 mmol/L 02/01/2025 12:20 PM CDT [facility] Calcium 10.2 8.4 - 10.4 mg/dL 02/01/2025 12:20 PM CDT [facility] Anion Gap 14 6 - 16 mmol/L 02/01/2025 12:20 PM CDT [facility] BUN 43(H) 7 - 26 mg/dL 02/01/2025 12:20 PM CDT [facility] Creatinine 0.97 0.50 - 1.20 mg/dL 02/01/2025 12:20 PM [facility] eGFR by CKD-EPI 64(L) >=90 mL/min/1.7 3 m2 02/01/2025 12:20 PM T [facility] Comment:Estimated Glomerular Filtration Rate (eGFR) calculated using the CKD-EPI Creatinine Equation (2020), per the National Kidney Foundation and [employer] recommendations. Blood BLOOD SPECIMEN / Unknown Lab Venipuncture / Unknown 02/01/2025 11:32 AM CDT 02/01/2025 11:51 AM CDT Darvin Parekh MD LAB - CHEMISTRY ORDERABLES Deann l Result [facility] [address] [place] [address] * (ABNORMAL) GLUCOSE - POINT OF CARE (02/01/2025 9:30 AM CDT) [facility] Glucose WB/POC 310(H) 70 - 99 mg/dL 02/01/2025 9:37 AM CDT [facility] Specimen Type Arterial/C apillary 02/01/2025 9:37 AM CDT [facility] Blood BLOOD SPECIMEN / Unknown 02/01/2025 9:30 AM CDT 02/01/2025 9:37 AM CDT Darvin Parekh MD LAB - POINT OF CARE ORDERABLES Final Result Performing Organization Address [facility]/ZIP Co de Phone Number [facility] [address] [place] [phone] * (ABNORMAL) GLUCOSE - POINT OF CARE (02/01/2025 7:41 AM CDT) Glucose WB/POC 207(H) 70 - 99 mg/dL 02/01/2025 8:02 AM CDT [facility] Specimen Type Arterial/C apillary 02/01/2025 8:02 AM CDT [facility] Blood BLOOD SPECIMEN / Unknown 02/01/2025 7:41 AM CDT 02/01/2025 8:02 AM CDT us Darvin Parekh MD LAB - POINT OF CARE ORDERABLES Final Result Performing Organization Address [facility] Co de Phone Number [facility] [address] [place] [phone] * (ABNORMAL) GLUCOSE - POINT OF CARE (01/31/2025 7:12 PM CDT) Pathologist [facility] Glucose WB/POC 364(H) 70 - 99 mg/dL 01/31/2025 7:19 PM CDT [facility] Specimen Type Arterial/C apillary 01/31/2025 7:19 PM CDT [facility] Blood BLOOD SPECIMEN / Unknown 01/31/2025 7:12 PM CDT 01/31/2025 7:18 PM CDT Darvin Parekh MD LAB - POINT OF CARE ORDERABLES Final Result Performing Organization Address City/[facility]/ZIP Co de Phone Number [facility] [address] [place] [phone] * (ABNORMAL) GLUCOSE - POINT OF CARE (01/31/2025 5:11 PM CDT) Glucose WB/POC 390(H) 70 - 99 mg/dL 01/31/2025 5:22 PM CDT [facility] Specimen Type Arterial/C apillary 01/31/2025 5:22 PM CDT [facility] Blood BLOOD SPECIMEN / Unknown 01/31/2025 5:11 PM CDT 01/31/2025 5:22 PM CDT Darvin Parekh MD LAB - POINT OF CARE ORDERABLES Final Result Performing Organization Address [facility]/ZIP Co de Phone Number [facility] [address] [place] [phone] * (ABNORMAL) GLUCOSE - POINT OF CARE (01/31/2025 11:55 AM CDT) Glucose WB/POC 259(H) 70 - 99 mg/dL 01/31/2025 12:01 PM CDT [facility] Specimen Type Arterial/C apillary 01/31/2025 12:01 PM CDT [facility] Blood BLOOD SPECIMEN / Unknown 01/31/2025 11:55 AM CDT 01/31/2025 12:01 PM CDT Darvin Parekh MD LAB - POINT OF CARE ORDERABLES Final Result Performing Organization Address [facility] de Phone Number [facility] [address] [place] [phone] * (ABNORMAL) BASIC METABOLIC PANEL (CALCIUM TOTAL) (01/31/2025 10:47 AM CDT) Glucose 244(H) 70 - 99 mg/dL 01/31/2025 11:18 AM CDT [facility] Sodium 136 136 - 145 mmol/L 01/31/2025 11:18 AM CDT [facility] Potassium 3.9 3.5 - 5.1 mmol/L 01/31/2025 11:18 AM CDT [facility] Chloride 97(L) 98 - 107 mmol/L 01/31/2025 11:18 AM CDT [facility] CO2 29 22 - 29 mmol/L 01/31/2025 11:18 AM CDT [facility] Calcium 10.0 8.4 - 10.4 mg/dL 01/31/2025 11:18 AM CDT [facility] Anion Gap 10 6 - 16 mmol/L 01/31/2025 11:18 AM CDT [facility] BUN 34(H) 7 - 26 mg/dL 01/31/2025 11:18 AM CDT [facility] Creatinine 0.89 0.50 - 1.20 mg/dL 01/31/2025 11:18 AM CDT [facility] eGFR by CKD-EPI 71(L) >=90 mL/min/1.7 3 m2 01/31/2025 11:18 AM CDT [facility] Comment:Estimated Glomerular Filtration Rate (eGFR) calculated using the CKD-EPI Creatinine Equation (2020), per the National Kidney Foundation and [employer] recommendations. Blood BLOOD SPECIMEN / Unknown Lab Venipuncture / Unknown 01/31/2025 10:47 AM CDT 01/31/2025 11:00 AM CDT Darvin Parekh MD LAB - CHEMISTRY ORDERABLES Deann l Result [facility] [address] [place] [phone] * (ABNORMAL) GLUCOSE - POINT OF CARE (01/31/2025 7:52 AM CDT) [facility] Glucose WB/POC 210(H) 70 - 99 mg/dL 01/31/2025 8:42 AM CDT [facility] Specimen Type Arterial/C apillary 01/31/2025 8:42 AM CDT [facility] Blood BLOOD SPECIMEN / Unknown 01/31/2025 7:52 AM CDT 01/31/2025 8:41 AM CDT Darvin Parekh MD LAB - POINT OF CARE ORDERABLES Final Result [facility] [address] [place] [phone] * LIPID PROFILE (01/31/2025 3:07 AM CDT) Cholesterol 176 <200 mg/dL 01/31/2025 4:09 AM CDT [facility] Triglycerides 114 <150 mg/dL 01/31/2025 4:09 AM CDT [facility] HDL Cholesterol 60 >40 mg/dL 4:09 AM CDT [facility] LDL Calculated 93 <130 mg/dL 01/31/2025 4:09 AM CDT [facility] Comment:LDL is calculated us ing the Friedewald equation. VLDL Calculated 23 <=30 mg/dL 4:09 AM CDT [facility] Chol HDL Ratio 2.9 <4.5 01/31/2025 4:09 AM CDT [facility] LDL/HDL Ratio 1.6 <5.0 01/31/2025 4:09 AM CDT [facility] Blood BLOOD SPECIMEN / Unknown Lab Venipuncture / Unknown 01/31/2025 3:07 AM CDT 01/31/2025 3:36 AM CDT Gil Perrin MD LAB - CHEMISTRY ORDERABLES Fin al Result Performing Organization Address City/[facility]/ZIP Co de Phone Number [facility] [address] [place] [phone] * (ABNORMAL) GLUCOSE - POINT OF CARE (01/30/2025 8:30 PM CDT) Glucose WB/POC 311(H) 70 - 99 mg/dL 01/30/2025 11:42 PM CDT [facility] Specimen Type Arterial/C apillary 01/30/2025 11:42 PM CDT [facility] Blood BLOOD SPECIMEN / Unknown 01/30/2025 8:30 PM CDT 01/30/2025 11:42 PM CDT Darvin Parekh MD LAB - POINT OF CARE ORDERABLES Final Result Performing Organization Address City/[facility]/ZIP Co de Phone Number [facility] [address] [place] [phone] * CARDIAC EKG ORDER (01/30/2025 5:05 PM CDT) Narrative 01/30/2025 5:05 PM CDT Ordered by an unspecified provider. Scanned Document CARDIAC SERVICES ORDERABLES Fin al Result * (ABNORMAL) GLUCOSE - POINT OF CARE (01/30/2025 4:21 PM CDT) Glucose WB/POC 200(H) 70 - 99 mg/dL 01/30/2025 4:31 PM CDT [facility] Specimen Type Arterial/C apillary 01/30/2025 4:31 PM CDT [facility] Blood BLOOD SPECIMEN / Unknown 01/30/2025 4:21 PM CDT 01/30/2025 4:31 PM CDT Darvin Parekh MD LAB - POINT OF CARE ORDERABLES Final Result Performing Organization Address City/[facility]/ZIP Co de Phone Number [facility] [address] [place] [address] * CULTURE STREP GROUP A (01/30/2025 2:50 PM CDT) Pathologist [facility] Culture Negative for beta-hemolytic Streptococcus Group A TERRANCE 01/31/2025 10:13 PM CDT [facility] MICROBIOLOGY Microbiology ENTIRE ANTERIOR SURFACE OF NECK / Unknown Collection / Unknown 01/30/2025 2:50 PM CDT 01/30/2025 3:04 PM CDT Jayla Bettencourt MECHANIC GENERAL [employer]PERATIONAL TEST-BARBER APPRENTICE LAB - MICROBIOLOGY ORDERABLES Final Result [facility] MICROBIOLOGY [address] [place] [address], [facility] [phone] * STREP A SCREEN DIRECT W RFLX STREP A CULTURE (01/30/2025 2:50 PM CDT) Strep A Rapid Negative Negative 01/30/2025 3:17 PM CDT [facility] Microbiology ENTIRE ANTERIOR SURFACE OF NECK / Unknown Collection / Unknown 01/30/2025 2:50 PM CDT 01/30/2025 3:04 PM CDT Narrative [facility] - 01/30/2025 3:17 PM CDT Test has reflexed to a Strep A culture. Jayla Bettencourt MECH[employer]IC GENER[employer]PERATIONAL TEST-BARBER APPRENTICE LAB - MICROBIOLOGY ORDERABLES Final Result Performing Organization Address [facility]/ZIP Co de Phone Number [facility] [address] [place] [phone] * (ABNORMAL) GLUCOSE - POINT OF CARE (01/30/2025 12:01 PM CDT) Glucose WB/POC 244(H) 70 - 99 mg/dL 01/30/2025 12:09 PM CDT [facility] Specimen Type Arterial/C apillary 01/30/2025 12:09 PM CDT [facility] Blood BLOOD SPECIMEN / Unknown 01/30/2025 12:01 PM CDT 01/30/2025 12:09 PM CDT Darvin Parekh MD LAB - POINT OF CARE ORDERABLES Final Result Performing Organization Address [facility] Co de Phone Number [facility] [address] [place], [place] [phone] * (ABNORMAL) ERYTHROCYTE SEDIMENTATION RATE (01/30/2025 8:50 AM CDT) Pathologist [facility] Erythrocyte Sedimentation Rate Automated 41(H) 0 - 30 MM/HR 01/30/2025 9:24 AM CDT [facility] Blood BLOOD SPECIMEN / Unknown Lab Venipuncture / Unknown 01/30/2025 8:50 AM CDT 01/30/2025 9:16 AM CDT Jayla Bettencourt MECH[employer]IC GENER[employer]PERATIONAL TEST-BARBER APPRENTICE LAB - HEMATOLOGY O RDERABLES Final Result Performing Organization Address [facility]/ZIP Co de Phone Number [facility] [address] [place] [phone] * (ABNORMAL) C-REACTIVE PROTEIN (01/30/2025 8:50 AM CDT) C-Reactive Protein 1.74(H) <=0.50 mg/dL 01/30/2025 10:00 AM CDT [facility] Blood BLOOD SPECIMEN / Unknown Lab Venipuncture / Unknown 01/30/2025 8:50 AM CDT 01/30/2025 9:16 AM CDT Jayla Bettencourt MECH[employer]IC GENER[employer] OPERATIONAL TEST-BARBER APPRENTICE LAB - CHEMISTRY OR DERABLES Final Result Performing Organization Address [facility]/ZIP Co de Phone Number [facility] [address] [place], [place] [phone] * (ABNORMAL) GLUCOSE - POINT OF CARE (01/30/2025 8:20 AM CDT) Pathologist [facility] Glucose WB/POC 190(H) 70 - 99 mg/dL 01/30/2025 8:26 AM CDT [facility] Specimen Type Arterial/C apillary 01/30/2025 8:26 AM CDT [facility] Blood BLOOD SPECIMEN / Unknown 01/30/2025 8:20 AM CDT 01/30/2025 8:26 AM CDT Result [facility] Darvin Parekh MD LAB - POINT OF CARE ORDERABLES Final Result Performing Organization Address [facility] Co de Phone Number [facility] [address] [place] [address] * TROPONIN-I HIGH SENSITIVE REFLEX 1HOUR (01/30/2025 2:42 AM CDT) Pathologist [facility] Troponin I High Sensitive 10 <=14 ng/L 01/30/2025 3:12 AM CDT [facility] Delta Troponin I HS 1 <6 ng/L 01/30/2025 3:12 AM CDT [facility] Blood BLOOD SPECIMEN / Unknown Venipuncture / Unknown 01/30/2025 2:42 AM CDT 01/30/2025 2:50 AM CDT Patsy Hill MD LAB - CHEMISTRY ORDERABLES Fin al Result [facility] [address] [place] [address] * XR Chest 1Vw Portable (01/30/2025 2:21 [...] - 4.940 uIU/mL 01/30/2025 2:26 AM CDT [facility] Blood BLOOD SPECIMEN / Unknown Venipuncture / Unknown 01/30/2025 1:50 AM CDT 01/30/2025 1:50 AM CDT Patsy Hill MD LAB - CHEMISTRY ORDERABLES Fin al Result Performing Organization Address [facility] de Phone Number [facility] [address] [place] [phone] * NT-PRO BNP (01/30/2025 1:50 AM CDT) NT-proBNP 156.9 <900.0 pg/mL 01/30/2025 2:26 AM CDT [facility] Blood BLOOD SPECIMEN / Unknown Venipuncture / Unknown 01/30/2025 1:50 AM CDT 01/30/2025 1:50 AM CDT Narrative [facility] - 01/30/2025 2:26 AM CDT NT-pro-BNP [...] other findings. NT-pro-BNP is measured on the Teladocnity analyzer using chemiluminescent microparticle immunoassay (CMIA) technology. Patsy Hill MD LAB - CHEMISTRY ORDERABLES Fin al Result Performing Organization Address [facility] de Phone Number [facility] [address] [place] [phone] * (ABNORMAL) COMPREHENSIVE METABOLIC PANEL (01/30/2025 1:50 AM CDT) Glucose 359(H) 70 - 99 mg/dL 01/30/2025 2:02 AM CDT [facility] Sodium 140 136 - 145 mmol/L 01/30/2025 2:02 AM CDT [facility] Potassium 4.2 3.5 - 5.1 mmol/L 01/30/2025 2:02 AM CDT [facility] Chloride 104 98 - 107 mmol/L 01/30/2025 2:02 AM [facility] CO2 25 22 - 29 mmol/L 01/30/2025 2:02 AM [facility] Calcium 9.5 8.4 - 10.4 mg/dL 01/30/2025 2:02 AM [facility] Anion Gap 11 6 - 16 mmol/L 01/30/2025 2:02 AM [facility] BUN 23 7 - 26 mg/dL 01/30/2025 2:02 AM [facility] Creatinine 1.03 0.50 - 1.20 mg/dL 01/30/2025 2:02 AM [facility] Alkaline Phosphatase 76 40 - 150 U/L 01/30/2025 2:02 AM [facility] ALT 27 6 - 57 U/L 01/30/2025 2:02 AM [facility] AST 24 10 - 48 U/L 01/30/2025 2:02 AM [facility] Protein Total 7.7 6.4 - 8.3 gm/dL 01/30/2025 2:02 AM [facility] Albumin 3.7 3.1 - 4.5 gm/dL 01/30/2025 2:02 AM [facility] Bilirubin Total 0.6 0.2 - 1.2 mg/dL 01/30/2025 2:02 AM [facility] eGFR by CKD-EPI 59(L) >=90 mL/min/1.7 3 m2 01/30/2025 2:02 AM [facility] Comment:Estimated Glomerular Filtration Rate (eGFR) calculated using the CKD-EPI Creatinine Equation (2020), per the National Kidney Foundation and [employer] recommendations. Blood BLOOD SPECIMEN / Unknown Venipuncture / Unknown 01/30/2025 1:50 AM CDT 01/30/2025 1:50 AM [facility] us Patsy Hill MD LAB - CHEMISTRY ORDERABLES Fin al Result [facility] [address] [place] [address] * TROPONIN-I HIGH SENSITIVE BASELINE + 1HR (01/30/2025 1:20 AM CDT) Pathologist [facility] Troponin I High Sensitive 9 <=14 ng/L 01/30/2025 1:44 AM CDT [facility] Blood BLOOD SPECIMEN / Unknown Venipuncture / Unknown 01/30/2025 1:20 AM CDT 01/30/2025 1:20 AM CDT us Patsy Hill MD LAB - CHEMISTRY ORDERABLES Fin al Result [facility] [address] [place] [address] * (ABNORMAL) CBC W AUTO DIFFERENTIAL (01/30/2025 1:20 AM CDT) Pathologist [facility] WBC 13.4(H) 4.0 - 10.7 x10E9/L 01/30/2025 1:24 AM CDT [facility] RBC Count 4.52 3.90 - 5.20 x10E12/L 01/30/2025 1:24 AM CDT [facility] Hemoglobin 12.7 11.9 - 15.8 g/dL 01/30/2025 1:24 AM CDT [facility] Hematocrit 41.2 34.8 - 46.1 % 01/30/2025 1:24 AM CDT [facility] MCV 91.2 80.0 - 98.0 fL 01/30/2025 1:24 AM CDT [facility] MCH 28.1 26.7 - 33.6 pg 01/30/2025 1:24 AM CDT [facility] MCHC 30.8(L) 31.7 - 36.3 g/dL 01/30/2025 1:24 AM CDT [facility] RDW-CV 14.0 11.3 - 14.8 % 01/30/2025 1:24 AM CDT [facility] Platelet Count 258 150 - 420 x10E9/L 01/30/2025 1:24 AM CDT [facility] MPV 9.9 7.8 - 11.4 fL 01/30/2025 1:24 AM CDT [facility] Neutrophil % 74.9(H) 41.0 - 74.0 % 01/30/2025 1:24 AM CDT [facility] Lymphocyte % 19.2 17.0 - 47.0 % 01/30/2025 1:24 AM CDT [facility] Monocyte % 5.1 3.0 - 11.0 % 01/30/2025 1:24 AM CDT [facility] Eosinophil % 0.3 0.0 - 7.0 % 01/30/2025 1:24 AM CDT [facility] Basophil % 0.2 0.0 - 1.6 % 01/30/2025 1:24 AM CDT [facility] Immature Granulocytes % 0.3 0.0 - 1.0 % 01/30/2025 1:24 AM CDT [facility] Neutrophil Absolute 10.06(H) 1.60 - 7.50 x10E9/L 01/30/2025 1:24 AM CDT [facility] Lymphocyte Absolute 2.58 1.00 - 4.40 x10E9/L 01/30/2025 1:24 AM CDT [facility] Monocyte Absolute 0.69 0.15 - 1.00 x10E9/L 01/30/2025 1:24 AM CDT [facility] Eosinophil Absolute 0.04 0.00 - 0.60 x10E9/L 01/30/2025 1:24 AM CDT [facility] Basophil Absolute 0.03 0.00 - 0.13 x10E9/L 01/30/2025 1:24 AM CDT [facility] Blood BLOOD SPECIMEN / Unknown Venipuncture / Unknown 01/30/2025 1:20 AM CDT 01/30/2025 1:20 AM CDT us Patsy Hill MD LAB - HEMATOLOGY ORDERABLES Fi nal Result [facility] [address] [place] [address] * EKG 12-Lead (01/30/2025 1:07 AM CDT) Ventricular Rate 86 BPM [facility] Atrial Rate 86 BPM [facility] P-R Interval 114 ms [facility] QRS Duration ms 86 ms [facility] Q-T Interval ms 370 ms [facility] QTC Calculation (Bezet) 442 ms [facility] Calculated P [place] 15 degrees [facility] Calculated T [place] 55 degrees [facility] Interpretation EKG NORMAL SINUS RHYTHM NORMAL ECG WHEN COMPARED WITH ECG OF 06-JAN-2025 10:09, NO SIGNIFICANT CHANGE WAS FOUND Confirmed by MD CAMARA PAUL ([id number]) on 01/30/2025 3:29:07 PM [facility] 01/30/2025 1:07 AM CDT 01/30/2025 3:29 PM CDT us Patsy Hill MD ECG ORDERABLES Edited Result - Final [facility] M[facility] documented in this encounter Visit [...] site Type 2 diabetes mellitus without complication ([facility]/HCC) Type II or unspecified type diabetes mellitus [...] PRN, Fever, Mild Pain, Headache, Starting on [facility] 01/30/25 at 0710, Until 02/02/25 at 1529, [...] mg, Oral, AT BEDTIME, First dose on [facility] 01/30/25 at 2100, Until Discontinued $ Given [...] Starting on [place] 01/30/25 at 1211, Until [place] 02/02/25 at 1529, If NOT able to [...] Starting on [place] 01/30/25 at 1211, Until [place] 02/02/25 at 1529, If NOT able to [...] 20 mg, Intravenous, NOW, 1 dose, On [facility] 01/30/25 at 0300, Protect from light $ Given 01/30/2025 3:03 AM CDT 20 mg furosemide (Lasix) injection 40 mg 40 mg, Intravenous, 2 TIMES DAILY (diuretics), 2 doses, First dose (after last modification) on [facility] 01/30/25 at 1100, Last dose on [place] [...] choices) NOTIFY PROVIDER OF HYPOGLYCEMIC EVENT. HYDROcodone-acetaminophen ([place]) 10-325 MG tablet 1 tablet 1 tablet, [...] 0543 ($ Given - Provider: Patrick San RN)[phone] (Not Administered - Provider: Daisy Kiser - [...] from light 1128 ($ Given - Provider: Anais Jones RN)[phone] [...] swallow. documented in this encounter Care Teams Area Loss Prevention Manager Relationship Specialty Start Date End Date Justen Gale MD PCP - General 07/05/21 documented as of this encounter
--- NOTE | ~2025-02-03 | XR_ITS ---
Examination: XR chest 2V Clinical History: cp Comparison: 01/25/2025 Technique: PA and Lateral Findings: Spinal stimulator leads. Cardiomediastinal silhouette normal size and configuration. Lungs clear. No acute bony abnormality. IMPRESSION: 1. No acute cardiopulmonary findings. Reviewed, dictated and finalized at location R.
--- NOTE | 2025-02-03 13:16 | ECG_ITS ---
Test Date: 2025-02-03 13:19:36 Measurements Intervals [place] Rate: 87 P: 36 [place]: 132 QRS: 2 QRSD: 89 T: 53 QT: 394 QTc: 477 Interpretive Statements SINUS RHYTHM BASELINE ARTIFACT- I, II, III, AVR, AVL NORMAL ECG Compared to ECG 01/25/2025 06:19:35 No significant changes Electronically Signed On 02-03-2025 15:35:44 CDT by Jonatan Parra D.O.
--- NOTE | 2025-02-03 13:19 | ED.CHESTPAIN ---
HPI - Chest Pain General Chief Complaint: Chest Pain Stated Complaint: cp Time Seen by Provider: 02/03/25 13:19 Focused HPI: Patient is a 69 female, with PMH of PE on xarelto, CHF, polymyositis, who presents the ED via EMS with report of chest pain. Patient reports he began having pain throughout her right upper back, radiating through to her chest approximately 30 minutes to 1 hour prior to arrival. Described as stabbing and tightness. Pain is intermittent. She initially called EMS and wanted to decline, but states the paramedics recommended she come be evaluated. EMS did apply NTG paste which she states did improve her pain slightly. Patient was discharged from [facility] yesterday for CHF exacerbation. Denies feeling short of breath currently. GENERAL: Chronically ill-appearing, morbidly obese, and in no acute distress. HEAD: Normocephalic, atraumatic. CHEST: Clear to auscultation. ?No respiratory distress. No focal lung sounds. HEART: Regular rate and rhythm.? NEURO: ?Alert and oriented x3. Patient screened in triage and initial orders placed.? ?Additional care and disposition to be based upon?diagnostic testing and treatment. Source: patient Mode of arrival: ambulatory Limitations: no limitations Related Data Home Medications ?Medication ?Instructions ?Recorded ?Confirmed ?Last Taken ?Type exemestane 25 mg tablet 25 mg PO HS 01/06/20 11/16/24 11/15/24 History insulin glargine 100 unit/mL (3 50 unit subcut QAM 01/06/20 11/16/24 11/15/24 History mL) subcutaneous pen (Lantus Solostar U-100 Insulin) ropinirole 5 mg tablet 5 mg PO HS 01/06/20 11/16/24 11/15/24 History insulin lispro 100 unit/mL 32 unit subcut TID 03/19/22 11/16/24 11/15/24 History subcutaneous pen (Humalog KwikPen (U-100) Insulin) oxybutynin chloride 15 mg 15 mg PO DAILY 11/06/22 11/16/24 11/15/24 History tablet,extended release 24 hr gabapentin 300 mg capsule 300 mg PO TID 06/25/23 11/16/24 11/15/24 History prednisone 10 mg tablet 10 mg PO DAILY 10/08/24 11/16/24 11/15/24 History rivaroxaban 20 mg tablet (Xarelto) 20 [place] [address]/08/24 11/16/24 11/15/24 History Allergies Allergy/AdvReac Type Severity Reaction Status Date / Time ceftriaxone Allergy Severe SOB Verified 12/29/24 02:00 cephalexin Allergy Severe Difficulty Verified 12/29/24 02:00 Breathing Cephalosporins Allergy Severe Difficulty Verified 12/29/24 02:00 Breathing lorazepam Allergy Severe Swelling Verified 12/29/24 02:00 trazodone Allergy Severe Swelling Verified 12/29/24 02:00 of Lip/Tongue/Throat metoclopramide Allergy Intermediate Other Verified 12/29/24 02:00 azithromycin Allergy Mild Itching Verified 12/29/24 02:00 chlorhexidine Allergy Mild BLISTERING Verified 12/29/24 02:00 levofloxacin Allergy Mild Hives / Verified 12/29/24 02:00 Red Face ketorolac Allergy Itching Verified 12/29/24 02:00 latex Allergy Rash Verified 12/29/24 02:00 meropenem Allergy Rash Verified 12/29/24 02:00 nitrofurantoin Allergy Itching Verified 12/29/24 02:00 piperacillin Allergy Rash Verified 12/29/24 02:00 reslizumab Allergy Hives Verified 12/29/24 02:00 trimethoprim (From Allergy Itching Verified 12/29/24 02:00 Sulfamethoxazole-Trimethoprim) sulfamethoxazole (From AdvReac Severe Anaphylaxis Verified 12/29/24 02:00 Sulfamethoxazole-Trimethoprim) clindamycin AdvReac Intermediate Nausea and Verified 12/29/24 02:00 Vomiting doxycycline AdvReac Mild Itching Verified 12/29/24 02:00 oxycodone AdvReac Mild Vomiting Verified 12/29/24 02:00 amlodipine AdvReac Swelling Verified 12/29/24 02:00 lisinopril AdvReac Swelling Verified 12/29/24 02:00 pregabalin AdvReac Swelling Verified 12/29/24 02:00 [facility] Past Medical History Medical History Polymyositis with myopathy Gastroparesis Obstructive sleep apnea on CPAP Restless leg syndrome Pulmonary embolism positive for coagulation workup Deep venous thrombosis Type 2 diabetes mellitus Throat pain in adult Oral ulcer Chronic anticoagulation Overactive bladder Irritable bowel syndrome Congestive heart failure Chronic back pain Collagenous colitis Morbid obesity Breast cancer Depression Anxiety Peripheral neuropathy Kidney stone Multiple thyroid nodules Surgical History Surgical History History of umbilical hernia repair History of colonoscopy Status post insertion of spinal cord stimulator History of cystoscopy History of ureter stent History of cholecystectomy History of bilateral mastectomy History of esophagogastroduodenoscopy (EGD) History of right oophorectomy History of total right knee replacement History of cardiac catheterization Reportedly negative for coronary artery disease. Family History Family History Mother Diabetes mellitus Acute myocardial infarction Congestive heart failure Hypertension Cerebrovascular accident Coronary artery disease Father Prostate carcinoma Sibling Acute myocardial infarction Breast cancer Chronic obstructive pulmonary disease Social History Social History Social History: Surrogate medical decision maker: Jimmie Marques, spouse. (Previously listed though she reports being now) Code status: Full code. Smoking packs per day: 0 Smoking cigarettes per day: 0.0 Years smoked: 2 Smoking pack-years: 0.00 Smoking status: Never smoker Second hand tobacco smoke exposure: Yes Alcohol intake: never Substance use: never Substance use type: does not use Do You Feel Safe in your Home?: Yes Lack of Transportation: YES Lack of Food: Never True Current Housing: I Have Housing Concerned About Future Housing: No Difficulty Paying Gas/Electric Bills: No Difficulty Paying for Meds: No Currently Unemployed: No Education: Associate Degree Difficulty w/ Childcare or Family Care: No Living arrangements: with family Additional living arrangements comments: daughter Additional occupation/education comments: Disabled. Spiritual care concerns: No Course Vital Signs Vital signs: Vital Signs Temperature 97.6 F 02/03/25 13:23 Pulse Rate 86 02/03/25 13:23 Respiratory Rate 14 02/03/25 13:23 Blood Pressure 127/67 02/03/25 13:23 Pulse Oximetry 98 02/03/25 13:23 Oxygen Delivery Room Air 02/03/25 13:23 Temperature 97.6 F 02/03/25 13:23 Pulse Rate 86 02/03/25 13:23 Respiratory Rate 14 02/03/25 13:23 Blood Pressure 127/67 02/03/25 13:23 Pulse Oximetry 98 02/03/25 13:23 Oxygen Delivery Room Air 02/03/25 13:23 MDM - Chest Pain MDM Narrative Medical decision making narrative: MSE by ERIC in triage. Patient left the facility after initial MSE in triage w/o further workup or evaluation. Lab Data 02/03/25 13:30 02/03/25 13:30 Labs: Lab Results 02/03/25 02/03/25 Range/Units 13:30 13:30 WBC 13.0 H (4.5-10.0) K/mm3 RBC 5.03 (4.2-5.4) M/mm3 Hgb 14.1 (12.0-15.0) g/dL Hct 45.0 (37.0-47.0) % MCV 89.5 (80-100) fl MCH 28.0 (26-34) pg MCHC 31.3 L (32-36) g/dl RDW 14.2 (11.5-14.5) % Plt Count 298 (150-375) k/mm3 MPV 9.5 (7.4-10.4) fl Immature Gran % (Auto) 0.5 (0-0.5) % Neut % (Auto) 69.7 (45.5-73.1) % Lymph % (Auto) 21.3 (18.3-44.2) % Mobile % (Auto) 6.6 (2.6-8.5) % Eos % (Auto) 1.5 (0-4.4) % Baso % (Auto) 0.4 (0.2-1.2) % Lymph # (Auto) 2.76 (0.9-3.2) K/mm3 Mobile # (Auto) 0.9 H (0.1-0.6) K/mm3 Eos # (Auto) 0.2 (0-0.3) K/mm3 Baso # (Auto) 0.1 (0.0-0.1) K/mm3 Abs Immat Gran (auto) 0.07 H (0.00-0.031) K/mm3 Absolute Neuts (auto) 9.0 H (1.3-6.7) K/mm3 Absolute Nucleated RBC 0.000 (0.0-0.012) K/mm3 Nucleated RBC % 0.0 (0.0-0.2) % PT 14.7 (11.1-14.7) Seconds INR 1.2 APTT 26.0 (22.3-36.8) Seconds Sodium 136 L (137-145) mmol/L Potassium 3.5 (3.4-5.0) mmol/L Chloride 94 L (98-107) mmol/L Carbon Dioxide 32 H (22-30) mmol/L Anion Gap 10 (4-12) mmol/L BUN 47 H D (7-17) mg/dL Creatinine 0.95 (0.7-1.0) mg/dL Estim Creat Clear Calc 61 ml/min Estimated GFR 58 L (59 - ) Glucose 302 H (65-110) mg/dL Calcium 9.2 (8.4-10.2) mg/dL Total Bilirubin 0.8 (0.2-1.3) mg/dL AST 32 (14-36) U/L ALT 36 H (6-35) U/L Alkaline Phosphatase 84 (38-126) U/L Troponin I 0.015 (0.000-0.034) ng/mL NT-Pro-B Natriuret Pep 91 Cancelled (19.9-100) pg/mL Total Protein 8.1 (6.3-8.2) g/dL Albumin 4.2 (3.5-5.1) g/dL Lipase 185 (23-300) U/L Discharge Plan Discharge Clinical Impression: Upper back pain on right side Chest pain Qualifiers: Chest pain type: unspecified Qualified Code(s): R07.9 - Chest pain, unspecified Patient Disposition: Elopement After Seen by Prov Patient Language: Portuguese Prescriptions: No Action gabapentin 300 mg capsule 300 mg PO TID exemestane 25 mg tablet 25 mg PO HS ropinirole 5 mg tablet 5 mg PO HS insulin glargine [Lantus Solostar U-100 Insulin] 100 unit/mL (3 mL) insulin pen 50 unit SUBCUT QAM insulin lispro [Humalog KwikPen Insulin] 100 unit/mL insulin pen 32 unit SUBCUT TID Patient Comments: PATIENT EXPERIENCES LOW BLOOD SUGAR IN THE HOSPITAL albuterol sulfate 90 mcg/actuation HFA aerosol inhaler 1 inh inhalation QID PRN (Reason: shortness of breath or wheezing) Qty: 6.7 0RF oxybutynin chloride 15 mg tablet extended release 24hr 15 mg PO DAILY ondansetron 4 mg tablet,disintegrating 4 mg PO Q8H PRN (Reason: nausea and vomiting) Qty: 10 0RF lidocaine 5 % ointment 1 applic topical TID PRN (Reason: skin irritation) Qty: 50 0RF prednisone 10 mg tablet 10 mg PO DAILY Xarelto 20 mg tablet 20 mg PO 0900 pantoprazole [Protonix] 40 mg tablet,delayed release (DR/EC) 40 mg PO BID 30 Days Qty: 60 0RF hydrocodone-acetaminophen 10-325 mg tablet 1 tablet PO Q6H PRN (Reason: pain (scale score 7-10)) 5 Days Qty: 10 0RF furosemide [Lasix] 20 mg tablet 20 mg PO DAILY Qty: 30 0RF Follow-up/Referrals: Shahla,Justen Spicer MD [Primary Care Provider]
[2025-02-03 13:23] VITALS: BP 127/67; PULSE 86; RESP 14; TEMP 36.4; O2SAT 98
[2025-02-03 13:36] LABS: Hematocrit 45.0 % (37.0-47.0); Hemoglobin 14.1 g/dL (12.0-15.0); Immature Granulocyte Percent A 0.5 % (0-0.5); Lymphocytes Absolute Auto 2.76 K/mm3 (0.9-3.2); Mean Corpuscular HGB Conc 31.3 g/dl (32-36); Mean Corpuscular Hemoglobin 28.0 pg (26-34); Mean Corpuscular Volume 89.5 fl (80-100); Nucleated Red Blood Cells Absolute Auto 0.000 K/mm3 (0.0-0.012); Nucleated Red Blood Cells Perc 0.0 % (0.0-0.2); Platelet Count Result 298 k/mm3 (150-375); Red Blood Count 5.03 M/mm3 (4.2-5.4); White Blood Count 13.0 K/mm3 (4.5-10.0)
[2025-02-03 13:53] LABS: Alanine Aminotransferase 36 U/L (6-35); Albumin Level 4.2 g/dL (3.5-5.1); Alkaline Phosphatase 84 U/L (38-126); Anion Gap 10 mmol/L (4-12); Aspartate Amino Transferase 32 U/L (14-36); Bilirubin,Total 0.8 mg/dL (0.2-1.3); Blood Urea Nitrogen 47 mg/dL (7-17); Calcium 9.2 mg/dL (8.4-10.2); Carbon Dioxide 32 mmol/L (22-30); Chloride 94 mmol/L (98-107); Estimated CRCL calculation 61 ml/min; Estimated Glomerular Filt Rate 58; Glucose 302 mg/dL (65-110); INR 1.2; Lipase 185 U/L (23-300); Potassium 3.5 mmol/L (3.4-5.0); Prothrombin Time 14.7 Seconds (11.1-14.7); Sodium 136 mmol/L (137-145); Total Protein 8.1 g/dL (6.3-8.2)
[2025-02-03 13:54] LABS: Partial Thromboplastin Time 26.0 Seconds (22.3-36.8)
[2025-02-03 14:04] LABS: Troponin I 0.015 ng/mL (0.000-0.034)
[2025-02-03 14:10] LABS: NT Pro B Type Natriuretic Pept 91 pg/mL (19.9-100)
--- OUTSIDE RECORDS SUMMARY | 2025-02-03 14:17 | XMS_ITS ---
Author Organization [facility] Address [address] [place] [id number] Care Team Providers Care Lab Aide Name Role Phone Liu Jerez MD Unavailable [phone] Albert Corbin MD Unavailable Justen Gale MD Primary Care Provider [phone] Khris Arthur MD Unavailable [phone] Ko Mleendez MD Unavailable [phone] John Paul Moyer MD Unavailable Annel Rod MD Unavailable Anali MARSHALL MD, Carlos M. Unavailable [phone] Active Problems Problem Noted Date Diagnosed Date Acute on chronic diastolic congestive heart fail ure 12/03/2024 Class 3 severe obesity due t o excess calories without serious comorbidity with body mass index (BMI) of 50.0 to 59.9 in adult 12/03/2024 Shortness of breath 12/02/2024 Urinary tract infection 05/22/2024 Assessment & Plan (05/26/2024 10:08 AM STUD SETTER): Presenting with urinary symptoms of right flank [...] 05/22/2024 Assessment & Plan (05/25/2024 7:52 AM STUD SETTER): Hx of breast cancer c/b DVT/bilateral Pes [...] 05/22/2024 Assessment & Plan (05/22/2024 1:14 PM STUD SETTER): -long-standing chronic back pain -CT L spine [...] complication, without long-term current use of insulin ([facility]) 10/23/2017 Assessment & Plan [...] 10/13/2017 Assessment & Plan (05/22/2024 12:29 PM STUD SETTER): -Hx stage II, ER positive, HER2 negative [...] 08/01/2017 Assessment & Plan (05/22/2024 12:33 PM STUD SETTER): -Hx LUL -Hospital provided CPAP ordered History of DVT (deep vein thrombosis) 08/01/2017 History of pulmonary embolism 08/01/2017 Generalized weakness 07/27/2017 Dyspnea 07/27/2017 Unintentional weight loss 07/27/2017 Acute cystitis without hematuria 07/27/2017 Nausea and vomiting 07/26/2017 Overview (07/28/2017): Added automatically from request for surgery [id number] Pulmonary embolism 08/09/2016 Assessment & Plan (10/23/2017 2:05 AM CDT): On Rivaroxaban Lymphedema of left upper extremity 08/09/2016 Assessment & Plan (05/25/2024 7:53 AM STUD SETTER): S/p L axillary lymph node dissection 2014, [...] syndrome Assessment & Plan (05/22/2024 11:18 AM STUD SETTER): -continue home Requip 5mg nightly Pain of lower extremity 03/12/2013 Overview (07/29/2016): Leg pain Essential hypertension Assessment & Plan (05/23/2024 10:42 AM STUD SETTER): -Chart history of HTN but not on meds -BP elevated on admission, likely some pain contributing -Monitor closely once pain under adequate control, discussed following up with PCP for this Chronic anticoagulation Restless leg syndrome 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 Type 2 diabetes mellitus without complication Assessment & Plan (05/24/2024 1:39 PM STUD SETTER): -Last Ha1c 8.4 in 2023, repeat 8.7 [...] Intractable pain Current Treatment and Therapy Plans IV Maintenance Therapy Plan* Plan Start Date:01/07/2025 Plan Provider:Khris Arthur MD Linked Problems Malignant neoplasm of overla pping sites of left breast in female, estrogen receptor positive (HCC) Treatment Medications No medications scheduled. 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
--- OUTSIDE RECORDS SUMMARY | 2025-02-03 14:17 | XMS_ITS | Clinical Summary ---
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 Unavailable [phone] Allergies Active Allergy Reactions Criticality Noted Date Comments Adhesive Rash Medium 09/16/2021 Amlodipine Besylate Swelling Medium 07/05/2022 Leg swelling Azithromycin Hives,Itching Medium 08/03/2024 Sulfamethoxazole-Trimetho prim Itching Low 02/27/2022 Calgon Danish Chg Itching Low 05/24/2024 Ceftriaxone Anaphylaxis High R Ceftriaxone Sodium Shortness of breath High 12/06/19 12 Cephalosporins Anaphylaxis High Chlorhexidine Blisters,Rash High 09/02/2024 Ciprofloxacin Rash Medium 02/12/2022 Clindamycin Nausea & Vomiting,Nausea only High 08/19/2024 Nausea/vomiting Doxycycline Itching Low 12/02/2024 Ketorolac Itching Low Latex Rash Medium Levofloxacin Hives,Unknown Medium 04/20/2017 Lisinopril Swelling Medium 04/19/2021 Lorazepam Unknown High 03/18/2018 Aggrevates restless leg syndrome Nitrofurantoin Flushing (skin) Low 02/16/2022 Meropenem Rash Medium 02/16/2022 Metoclopramide Other (See comments) Low 03/22/2017 Other reaction(s): Hyperactive Restless leg syndrome Metoclopramide Hcl Unknown 09/14/2017 Other Rash Medium 09/16/2021 Oxycodone Vomiting Low 07/28/2017 Piperacillin Rash Medium 08/01/2024 Piperacillin-Tazobactam Rash Medium 07/05/2021 Pregabalin Other (See comments) Low 10/29/2020 Reslizumab Unknown 10/29/2020 Spironolactone Fever,Headache,Naus ea And Vomiting Medium 01/03/2025 Pt states she doesn't want to take this medication anymore Sulfamethoxazole Anaphylaxis High 11/16/2024 Trazodone Other (See comments) Low 11/03/2017 Shaky, restlessness, itching, throat swelling Trimethoprim Itching Low 11/16/2024 Medications rOPINIRole (REQUIP) 5 mg tablet Take [...] or vomiting 20 tablet 08/24/19 24 Active Additional Information Patient not taking.Reported on 01/08/2025 ondansetron (ZOFRAN) 4 mg tablet Take 1 [...] nightly 90 tablet 3 05/30/19 25 Active furosemide (LASIX) 20 mg tablet Take 1 tablet (20 mg total) by mouth daily 30 tablet 12/06/19 25 Active aspirin 81 mg chewable tablet Take 1 tablet (81 mg total) by mouth daily 01/08/20 25 Active FreeStyle Eileen 2 Plus Sensor device DIRECTED EVERY 15 DAYS 12/27/19 25 Active oxyCODONE-acetamin ophen (PERCOCET) 10-325 mg per tablet Take 1 tablet by mouth every 4 (four) hours as needed 01/07/[address] (PROTONIX) 40 mg EC tablet Take 1 tablet (40 mg total) by mouth daily Active multivitamin (MULTIPLE VITAMINS ORAL) Take by mouth Active CALCIUM ORAL Take by mouth Act hugh oxyBUTYnin XL (DITROPAN-XL) 10 mg 24 hr tablet Take 1 tablet (10 mg total) by mouth daily 11/27/19 25 Active methotrexate 2.5 mg tabletIndications: Rheumatoid Arthritis,autoimmu ne disease Take 6 tablets (15 mg total) by mouth every 7 days Split 3 pills in am and 3 in evening 24 tablet 2 01/09/20 25 025 Active folic acid (FOLVITE) 1 mg tabletIndications: Polymyalgia rheumatica syndrome Take 1 tablet (1 mg total) by mouth daily 30 tablet 11 01/09/20 25 026 Active predniSONE (DELTASONE) 10 mg tabletIndications: autoimmune disease Take 2 tablets (20 mg) by mouth daily 180 tablet 01/23/20 25 Active spironolactone (ALDACTONE) 25 mg tablet Take 1 tablet (25 mg total) by mouth daily 30 tablet 12/07/19 25 025 Discontinu ed(Patient Reported) lidocaine (LIDODERM) 5 % Place 1 patch on the skin daily for 12 hours for 7 days Remove & discard patch within 12 hours or as directed by MD. Mortensen patch 12/06/19 25 025 Discontinu ed(Patient Reported) potassium chloride ER (KLOR-CON) 10 mEq CR tablet Take 1 tablet/capsule (10 mEq total) by mouth 2 (two) times a day 60 tablet/caps ule 12/06/19 25 025 atorvastatin (LIPITOR) 40 mg tablet Take 1 tablet (40 mg total) by mouth daily 01/07/20 25 025 Discontinu ed(Patient Reported) benzocaine-menthoL (CHLORASEPTIC) 6-10 mg lozenge Take 1 lozenge by mouth every 2 (two) hours as needed 01/07/20 25 Discontinu ed(Patient Reported) empagliflozin (JARDIANCE) 10 mg tablet Take 1 tablet (10 mg total) by mouth daily 01/08/20 25 025 Discontinu ed(Patient Reported) predniSONE (DELTASONE) 10 mg tablet Take 1 tablet (10 mg) by mouth daily 01/08/20 25 025 Discontinu ed(Reorder ) valsartan (DIOVAN) 80 mg tablet Take 1 tablet (80 mg total) by mouth daily 01/07/20 25 025 Discontinu ed(Patient Reported) predniSONE (DELTASONE) 10 mg tabletIndications: autoimmune disease Take 1.5 tablets (15 mg) by mouth daily 135 tablet 01/09/20 Discontinu ed(Reorder ) Active Problems Problem Noted Date Diagnosed Date Acute on chronic diastolic congestive heart fail ure 12/03/2024 Class 3 severe obesity due t o excess calories without serious comorbidity with body mass index (BMI) of 50.0 to 59.9 in adult 12/03/2024 Shortness of breath 12/02/2024 Urinary tract infection 05/22/2024 Assessment & Plan (05/26/2024 10:08 AM RECRUITING ASSISTANT): Presenting with urinary symptoms of right [...] 3 doses q48 hours -Previously followed with [facility] Urology, but lost to follow up when her Urologist left the practice, outpatient urology follow up placed - good pain control w/Dilaudid, continue prn Venous thromboembolism (VTE) 05/22/2024 Assessment & Plan (05/25/2024 7:52 AM RECRUITING ASSISTANT): Hx of breast cancer c/b DVT/bilateral [...] 05/22/2024 Assessment & Plan (05/22/2024 1:14 PM RECRUITING ASSISTANT): -long-standing chronic back pain -CT L [...] complication, without long-term current use of insulin ([facility]) 10/23/2017 Assessment & Plan (10/23/2017 2:06 [...] 10/13/2017 Assessment & Plan (05/22/2024 12:29 PM RECRUITING ASSISTANT): -Hx stage II, ER positive, HER2 negative breast cancer, on adjuvant exemestane -s/p bilateral mastectomies, left axillary LN dissection, with negative margins -Follows with Khris Somers -Outpatient Medical Oncology Note review indicates plan to continue on exemestane, will complete 10 years of therapy in 12/2024 -Yearly Reclast, next dose 11/2024 Chest pressure 08/01/2017 Positive blood culture 08/01/2017 Hyponatremia 08/01/2017 Diet-controlled diabetes mellitus ([facility]) 07/23 LUL (obstructive sleep apnea) 08/01/2017 Assessment & Plan (05/22/2024 12:33 PM RECRUITING ASSISTANT): -Hx LUL -Hospital provided CPAP ordered History of DVT (deep vein thrombosis) 08/01/2017 History of pulmonary embolism 08/01/2017 Generalized weakness 07/27/2017 Dyspnea 07/27/2017 Unintentional weight loss 07/27/2017 Acute cystitis without hematuria 07/27/2017 Nausea and vomiting 07/26/2017 Overview (07/28/2017): Added automatically from request for surgery [id number] Pulmonary embolism 08/09/2016 Assessment & Plan (10/23/2017 2:05 AM CDT): On Rivaroxaban Lymphedema of left upper extremity 08/09/2016 Assessment & Plan (05/25/2024 7:53 AM RECRUITING ASSISTANT): S/p L axillary lymph node dissection [...] syndrome Assessment & Plan (05/22/2024 11:18 AM RECRUITING ASSISTANT): -continue home Requip 5mg nightly Pain of lower extremity 03/12/2013 Overview (07/29/2016): Leg pain Essential hypertension Assessment & Plan (05/23/2024 10:42 AM RECRUITING ASSISTANT): -Chart history of HTN but not on meds -BP elevated on admission, likely some pain contributing -Monitor closely once pain under adequate control, discussed following up with PCP for this Chronic anticoagulation Restless leg syndrome 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 Type 2 diabetes mellitus without complication Assessment & Plan (05/24/2024 1:39 PM RECRUITING ASSISTANT): -Last Ha1c 8.4 in 2023, repeat [...] Encounters Date Type Department Care Team Description 01/13/2025 T[facility] Subsequent Outreach [facility] [address] [place] [phone] Janet Ba 01/08/2025 9:45 AM CDT Lab [facility] [address] [place] [address] [address] [place] [address] Polymyalgia rheumatica syndrome; Vitamin D deficiency 01/08/2025 9:21 AM CDT - 01/08/2025 11:59 PM CDT Hospital Encounter [facility] Radiology at [facility] [address] [place] [address] Polymyalgia rheumatica syndrome; Vitamin D deficiency Discharge Disposition: Discharge to home or self care 01/08/2025 8:30 AM CDT Office Visit [facility] Medicine Rheumatology [address] [place] [address] 2nd Floor [address] [place] [address] Karely Rosado MD Polymyalgia rheumatica syndrome (Primary Dx); Vitamin D deficiency 01/07/2025 3:00 PM CDT Infusion [facility] - Infusion [address] [place] [address] Floor 5 [place] [address] Malignant neoplasm of overlapping sites of left breast in female, estrogen receptor positive (HCC) (Primary Dx); Malignant neoplasm of upper-inner quadrant of left breast in female, estrogen receptor positive (HCC); Malignant neoplasm of upper-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, unspecified estrogen receptor status (HCC); 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) use 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 inhibitors; Bone disorder 01/07/2025 2:00 PM CDT Office Visit [facility] Medicine Oncology [address] [facility] Floor 8 [place] [address] AdeKhris thomson MD Malignant neoplasm of upper-inner quadrant of left breast in female, estrogen receptor positive (HCC) (Primary Dx) 01/07/2025 1:00 PM CDT Clinical Support [facility] - Lab Collection [address] [facility] Floor 5 [place] [address] Malignant neoplasm of upper-inner quadrant of left breast in female, estrogen receptor positive (HCC) 12/26/2024 TCC Subsequent Outreach [facility] [address] [place] [phone] Janet Ba 12/20/2024 Orders Only [facility] Cardiology [address] [place] [address] Laury Moore NP 12/18/2024 Telephone [facility] Medicine Oncology [address] [facility] Floor 8 [place] [address] Eden Carney RN 12/17/2024 TCC Subsequent Outreach [facility] [address] [place] [phone] Madelyn Cruz NP 12/17/2024 TCC Subsequent Outreach [facility] [address] [place] [phone] Madison Chadwick, [facility] 12/11/2024 3:16 PM CDT - 12/11/2024 9:03 PM CDT Emergency [facility] Emergency Department [address] [place] [address] Shortness of breath (Primary Dx); Generalized weakness Discharge Disposition: Discharge to home or self care 12/10/2024 TCC Subsequent Outreach [facility] [address] [place] [phone] Madison Chadwick, [facility] 12/07/2024 10:38 PM CDT - 12/08/2024 2:52 AM T Emergency [facility] Emergency Department [address] [place] [phone] Gil Diez, Dehydration (Primary Dx) Discharge Disposition: Discharge to home or self care 12/06/2024 TCC Initial Outreach [facility] [address] [place] [phone] Yunier Hernandez RN 12/03/2024 TCC Initial Eligibility Review [facility] [address] [place] [phone] Yunier Hernandez RN 12/02/2024 5:27 PM CDT - 12/05/2024 3:30 PM CDT Hospital Encounter [place] [address] Med Surg [facility] [place] [address] Patrick Rice DO Medavaram, Atul, MD Saravanan, Pathanjali, MD Shortness of breath (Primary Dx); Near syncope Discharge Disposition: Discharge to home or self care from Last 3 Months Immunizations Immunization Administration Dates Next Due Influenza, Quadrivalent, Rec ombinant, Egg Free, Preservative Free, Intramuscular 01/18/2020 Influenza, Quadrivalent, Spl it, Intramuscular 02/06/2017,02/11/2015 Influenza, Quadrivalent, Spl it, Preservative Free, Intramuscular 01/03/2022,05/04/2021,01/18/2020,02/25,01/24/2018,02/14/2017 Influenza, Trivalent, IM (MDV) ,01/23/2016,03/07/2014,05/07 Influenza, Unspecified 01/17/2023,2015,03/07/2014,05/07 Pfizer SARS-CoV-2 Monovalent Vaccination (12+ Yrs) PURPLE 05/04/2021 Tdap 02/23/2016 Surgical History Surgery Date Site/Laterality [...] Packs/Day Years Used Date Smoking Tobacco: Former Passive Smoke Exposure: Past Smokeless Tobacco: Never Tobacco Cessation:Counseling Given: Not [...] a skilled nursing (including now)? No 05/24/2024 Social Connection and [...] in a skilled nursing (including now)? No 12/03/2024 [facility] Utilities Answer Date Recorded In [...] on file Legal Sex Female 12:24 AM RECRUITING ASSISTANT Gender Identity Not on file Sexual Orientation Not on file Obstetrics History Last Filed Vital Signs Vital Sign Reading Time Taken Comments Blood Pressure 123/81 01/08/2025 8:09 AM CDT Pulse 77 01/08/2025 8:09 AM CDT Temperature 36.9 C (98.5 F) 01/08/2025 8:09 AM CDT Respiratory Rate 18 01/07/2025 1:25 PM CDT Oxygen Saturation 98% 01/08/2025 8:09 AM CDT Inhaled Oxygen Concentration - - Weight 125.7 kg (277 lb 3.2 oz) 01/08/2025 8:09 AM CDT Height 154.9 cm (5' 1) 01/08/2025 8:09 AM CDT Body Mass Index 52.38 01/08/2025 8:09 AM CDT Plan of Treatment Health Maintenance [...] 01/03/2022, 05/04/2021, Additional history exists Hemoglobin A1C 07/02/2025 01/02/2025, 11/22, 05/22/2024, Additional history exists Lipid Panel 12/04/2025 12/04/2024, 04/25, 10/14/2023, Additional history exists Fall Risk Assessment 12/05/2025 12/05/2024 eGFR 01/07/2026 01/07/2025, 08/, 12/07/2024, Additional history exists DTaP/Tdap/Td Vaccine (2 - Td or Tdap) 02/22/2026 02/23/2016 Colon Cancer Screening-Colonoscopy 07/04/2027 07/03/2017 Colon Cancer Screening-CT Colonography Discontinued 07/03/2017 Colon Cancer Screening-DNA Stool Discontinued 07/04/19 Colon Cancer Screening-FIT Discontinued 07/03/2017 Colon Cancer Screening-Sigmoidoscopy Discontinued 07/03/2017 Procedures Procedure Name Priority Date/Time Associated Diagnosis Comments DIFFERENTIAL AUTO Routine 01/08/2025 9:3 3 AM CDT Polymyalgia rheumatica syndrome VITAMIN D 25 HYDROXY Routine 01/08/2025 9:33 AM CDT Polymyalgia rheumatica syndrome Vitamin D deficiency ERYTHROCYTE SEDIMENTATION RATE Routine 01/08/2025 9:33 AM CDT Polymyalgia rheumatica syndrome CRP (ACUTE PHASE) Routine 01/08/2025 9:3 3 AM CDT Polymyalgia rheumatica syndrome CYCLIC CITRUL PEPTIDE ANTIBODY, IGG Routine 01/08/2025 9:33 AM CDT Polymyalgia rheumatica syndrome RHEUMATOID FACTOR Routine 01/08/2025 9:3 3 AM CDT Polymyalgia rheumatica syndrome CBC WITH AUTO DIFFERENTIAL Routine 01/08/2025 9:33 AM CDT Polymyalgia rheumatica syndrome CREATINE KINASE (CK), TOTAL Routine 01/08/2025 9:33 AM CDT Polymyalgia rheumatica syndrome MAGGIE ANTIBODY EVALUATION WITH REFLEX Routine 01/08/2025 9:33 AM CDT Polymyalgia rheumatica syndrome XR HAND BILATERAL 3 OR MORE VIEWS OF EACH Schedule Routine, Read Routine (OP Routine) 01/08/2025 9:25 AM CDT Polymyalgia rheumatica syndrome Vitamin D deficiency EGFR Routine 01/07/2025 12:42 PM CDT Malignant neoplasm of upper-inner quadrant of left breast in female, estrogen receptor positive (HCC) COMPREHENSIVE METABOLIC PANEL Routine 01/07/2025 12:42 PM CDT Malignant neoplasm of upper-inner quadrant [...] Relevant to Health Maintenance Results * (ABNORMAL) Differential, auto (01/08/2025 9:33 AM CDT) Neutrophil abs 9.33(H) 1.50 - 6.50 K/cumm Imm gran abs 0.07 0.00 - 0.10 K/cumm [facility] Lymphocyte abs 1.89 0.80 - 3.30 K/cumm [facility] Monocyte abs 1.06(H) 0.20 - 0.80 K/cumm [facility] Eosinophil abs 0.26 0.00 - 0.50 K/cumm [facility] Basophil abs 0.05 0.00 - 0.10 K/cumm [facility] Neutrophil pct 73.6 % [facility] Comment: Interpretive Data Percent cell count reference ranges are not reported, since discordance with absolute values may lead to misinterpretation of CBC data. Current Interpretive Data was last revised on 2017. Imm gran pct 0.6 % [facility] Comment: Interpretive Data Percent cell count reference ranges are not reported, since discordance with absolute values may lead to misinterpretation of CBC data. Current Interpretive Data was last revised on 2017. Lymphocyte pct 14.9 % [facility] Comment: Interpretive Data Percent cell count reference ranges are not reported, since discordance with absolute values may lead to misinterpretation of CBC data. Current Interpretive Data was last revised on 2017. Monocyte pct 8.4 % [facility] Comment: Interpretive Data Percent cell count reference ranges are not reported, since discordance with absolute values may lead to misinterpretation of CBC data. Current Interpretive Data was last revised on 2017. Eosinophil pct 2.1 % [facility] Comment: Interpretive Data Percent cell count reference ranges are not reported, since discordance with absolute values may lead to misinterpretation of CBC data. Current Interpretive Data was last revised on 2017. Basophil pct 0.4 % [facility] Comment: Interpretive Data Percent cell count reference ranges are not reported, since discordance with absolute values may lead to misinterpretation of CBC data. Current Interpretive Data was last revised on 2017. Blood 01/08/2025 9:33 AM CDT 01/08/2025 11:11 AM CDT Karely Rosado MD LAB BLOOD ORDERABLES Final R esult Performing Organization Address City/State/[facility] Co de Phone Number [facility] [place] [address] * MAGGIE ab eval w/reflex (01/08/2025 9:33 AM CDT) MAGGIE ab Negative Negative Comment: Interpretive Data Positive Screens will be reflexed to specific testing for Antibodies against the following antigens: Milena-1 Ab, RIB PULLER Ab, Scl-70 Ab, Goel Ab, SS-A/Ro Ab, and SS- B/La Ab. Further testing for dsDNA, Centromere, or Ribosomal P antibodies is suggested in patient with a positive screen and negative specific antibodies. Current interpretive data was last revised on 2022. Blood 01/08/2025 9:33 AM CDT 01/08/2025 11:09 AM CDT Karely Rosado MD LAB BLOOD ORDERABLES Final R esult Performing Organization Address City/State/[facility] Co de Phone Number [facility] [place] [address] * (ABNORMAL) CBC with auto differential (01/08/2025 9:33 AM CDT) [facility] WBC 12.66(H) 3.80 - 9.90 K/cumm Hgb 13.0 11.9 - 15.5 g/dL [facility] Hct 42.3 35.6 - 45.5 % [facility] Plt 325 150 - 400 K/cumm [facility] MPV 10.5 9.1 - 12.3 fL [facility] RBC 4.61 3.90 - 5.20 M/cumm [facility] MCV 91.8 81.3 - 96.4 fL [facility] MCH 28.2 27.1 - 33.3 pg [facility] MCHC 30.7(L) 32.3 - 35.7 g/dL [facility] RDW CV 13.6 11.1 - 14.9 % [facility] RDW SD 45.8 35.7 - 48.1 fL [facility] NRBC abs 0.00 0.00 - 0.01 K/cumm [facility] Blood 01/08/2025 9:33 AM CDT 01/08/2025 11:11 AM CDT us Karely Rosado MD LAB BLOOD ORDERABLES Final R esult Performing Organization Address City/[facility]/ZIP Co de Phone Number [facility] [place] [address] * Cyclic citrul peptide antibody, IgG (01/08/2025 9:33 AM CDT) [facility] CCP Ab <0.5 <=2.9 units/mL Comment: Interpretive data Negative: <3 units/mL Positive: > or equal to 3 units/mL Current interpretive data was last revised on 2016. Blood 01/08/2025 9:33 AM CDT 01/08/2025 11:11 AM CDT Karely Rosado MD LAB BLOOD ORDERABLES Final R esult Performing Organization Address [facility] Co de Phone Number [facility] [place] [address] * Vitamin D 25 hydroxy (01/08/2025 9:33 AM CDT) Vitamin D 25-OH 41 30 - 80 ng/mL Blood 01/08/2025 9:33 AM CDT 01/08/2025 11:30 AM CDT Karely Rosado MD LAB BLOOD ORDERABLES Final R esult Performing Organization Address [facility] Co de Phone Number [facility] [place] [address] * Erythrocyte sedimentation rate (01/08/2025 9:33 AM CDT) Erythrocyte sedimentation rate 29 1 - 30 mm/hr Blood 01/08/2025 9:33 AM CDT 01/08/2025 11:11 AM CDT Karely Rosado MD LAB BLOOD ORDERABLES Final R esult Performing Organization Address [facility] Co de Phone Number [facility] [place] [address] * Rheumatoid factor (01/08/2025 9:33 AM CDT) Rheumatoid factor, quant <10.0 0.1 - 15.0 IUnits/mL Blood 01/08/2025 9:33 AM CDT 01/08/2025 11:30 AM CDT Karely Rosado MD LAB BLOOD ORDERABLES Final R esult Performing Organization Address City/[facility] Co de Phone Number [facility] [place] [address] * (ABNORMAL) CRP (acute phase) (01/08/2025 9:33 AM CDT) CRP 26.3(H) <=10.0 mg/L Blood 01/08/2025 9:33 AM CDT 01/08/2025 11:30 AM CDT Karely Rosado MD LAB BLOOD ORDERABLES Final R esult Performing Organization Address [facility] [place] [address] * Creatine kinase (CK), total (01/08/2025 9:33 AM CDT) Pathologist [facility] CK 105 30 - 200 Units/L Blood 01/08/2025 9:33 AM CDT 01/08/2025 11:30 AM CDT Karely Rosado MD LAB BLOOD ORDERABLES Final R esult Performing Organization Address [facility] [place] [address] * XR Hand Bilateral 3 or More Views of Each (01/08/2025 9:25 AM CDT) Anatomical Region Laterality Modality Upper Extremities, Hand Computed Radiography 01/08/2025 11:1 8 AM CDT Impressions 01/08/2025 12:10 PM CDT 1. 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 No radiographic findings of inflammatory or erosive arthropathy. Dictated by: Jayson Barrios M.D. The radiology attending physician has personally reviewed this study, and had reviewed and/or edited this written report and agrees with it. Electronically signed by: Dileep Daigle MD Narrative 01/08/2025 12:10 PM CDT EXAMINATION: XR HAND BILATERAL 3 OR MORE VIEWS OF EACH HISTORY: arthritis COMPARISON: None available FINDINGS: Polyarticular osteoarthritis throughout the hands and wrists most pronounced at the bilateral thumb bases, severe on the left and mild on the right. No acute fracture. Normal carpal alignment. No suspicious bony erosions. Procedure Note Dileep Daigle MD - 01/08/2025 EXAMINATION: XR HAND BILATERAL 3 OR MORE VIEWS OF EACH HISTORY: arthritis COMPARISON: None available FINDINGS: Polyarticular osteoarthritis throughout the hands and wrists most pronounced at the bilateral thumb bases, severe on the left and mild on the right. No acute fracture. Normal carpal alignment. No suspicious bony erosions. IMPRESSION: 1. 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 No radiographic findings of inflammatory or erosive arthropathy. Dictated by: Jayson Barrios M.D. The radiology attending physician has personally reviewed this study, and had reviewed and/or edited this written report and agrees with it. Electronically signed by: Dileep Daigle MD us Karely Rosado MD IMG XR PROCEDURES Final Resu lt * eGFR (01/07/2025 12:42 PM CDT) eGFR 77 >=60 mL/min/1. 73 m2 Comment: Interpretive Data [...] interpretive data was last reviewed 2021. Blood 01/07/2025 12:4 2 PM CDT 01/07/2025 12:45 PM CDT Darcy Goel [employer] LAB BLOOD ORDERABLES Final Result [facility] [place] [address] * Comprehensive metabolic panel (01/07/2025 12:42 PM CDT) [facility] Sodium 141 135 - 145 mmol/L Potassium, pl 3.9 3.3 - 4.9 mmol/L [facility] Chloride 103 97 - 110 mmol/L [facility] CO2 27 22 - 32 mmol/L [facility] Anion gap 11 2 - 15 mmol/L [facility] BUN 23 6 - 25 mg/dL [facility] Creatinine 0.83 0.60 - 1.10 mg/dL [facility] Glucose 183 70 - 199 mg/dL [facility] Comment: Interpretive Data Fasting glucose >/= 126 [...] 2022. Calcium 10.0 8.5 - 10.3 mg/dL [facility] Bilirubin, total 0.6 0.1 - 1.2 mg/dL [facility] Protein, pl 8.2 6.5 - 8.5 g/dL [facility] Albumin 4.1 3.5 - 5.0 g/dL [facility] Alk phos 84 40 - 130 Units/L [facility] ALT 21 7 - 45 Units/L [facility] AST 26 10 - 45 Units/L [facility] Blood 01/07/2025 12:4 2 PM CDT 01/07/2025 12:45 PM CDT Darcy Goel [employer] LAB BLOOD ORDERABLES Final Result MARY JANE Cedeño [facility] [place] [address] * Urinalysis reflex to microscopic and culture Urine (12/11/2024 7:55 PM CDT) Color, ur Yellow Yellow Comment:Testing performed by : [address] [address] Clarity, ur Clear Clear MARY JANE Comment:Testing performed by : [address] [address] Specific gravity, ur 1.018 1.003 - 1.030 MARY JANE Comment:Testing performed by : [address] [address] pH, urine 6.5 MARY JANE Comment: Interpretive Data U rine pH is affected by diet, medications, systemic acid-base disturbances, and renal tubular function. pH may affect urinary stone formation. For example, urine pH below 6.0 may help reduce the tendency for calcium phosphate stones and pH greater than 6.0 may reduce the tendency for uric acid stone formation. Source: [facility] [employer] Current Interpretive Data was last revised on 2017 Testing performed by: [address] [address] Protein, ur ql Negative Negative MARY JANE Comment:Testing performed by : [address] [address] Glucose, ur ql Negative Negative MARY JANE Comment:Testing performed by : [address] [address] Ketones, ur Negative Negative MARY JANE Comment:Testing performed by : [address] [address] Bilirubin, ur Negative Negative MARY JANE Comment:Testing performed by : [address] [address] Blood, ur Negative Negative MARY JANE Comment:Testing performed by : [address] [address] Urobilinogen, ur <2.0 <2.0 mg/dL MARY JANE PHAM Comment:Testing performed by : [address] [address] Nitrite, ur Negative Negative MARY JANE PHAM Comment:Testing performed by : [address] [address] Leukocyte esterase, ur Negative Negative MARY JANE PHAM Comment:Testing performed by : [address] [address] UA reflex comment Reflex conditions for microscopic UA and culture not met. MARY JANE PHAM Comment:Testing performed by : [address] [address] Urine 12/11/2024 7:55 PM CDT 12/11/2024 7:58 PM CDT Blaze Armenta NP LAB MICROBIOLOGY - GENERAL ORDER [place]APARRO Final Result MARY JANE PHAM [facility] [facility] Department [place] [address] * (ABNORMAL) Troponin T high-sensitivity 4-hour (12/11/2024 6:58 PM CDT) Trop T hs 24(H) <=14 ng/L Comment: Interpretive Data For further hscTnT resources including the diagnostic algorithm and an aid in interpretation, copy and paste this link: https://nrl.testcatalog.org/show/hsTrop Current Interpretive Data last revised 2020. Testing performed by: [address] [address] Trop T hs delta -2 ng/L MARY JANE PHAM Comment:Testing performed by : [address] [address] Trop T hs interp Insignificant MARY JANE PHAM Comment:Testing performed by : [address] [address] Blood 12/11/2024 6:58 PM CDT 12/11/2024 7:03 PM CDT Rosa MCKEON LAB BLOOD ORDERABLES Final Resu lt Performing Organization Address [facility]/ZIP Co de Phone Number MARY JANE [address] [place] [address] * POCT glucose (12/11/2024 6:05 PM CDT) Glucose, POC 132 70 - 199 mg/dL Comment:Testing performed by : [address] [address] Blood 12/11/2024 6:05 PM CDT 12/11/2024 6:05 PM CDT Notinfile Unknown LAB POCT ORDERABLES - DEVICE F inal Result Performing Organization Address [facility] de Phone Number MARY JANE [address] [address] * (ABNORMAL) Troponin T high-sensitivity 2-hour (12/11/2024 5:12 PM CDT) Trop T hs 23(H) <=14 ng/L Comment: Interpretive Data For further hscTnT resources including the diagnostic algorithm and an aid in interpretation, copy and paste this link: https://nrl.testcatalog.org/show/hsTrop Current Interpretive Data last revised 2020. Testing performed by: [address] [address] Trop T hs delta -3 ng/L MARY JANE Comment:Testing performed by : [address] [address] Trop T hs interp Insignificant MARY JANE Comment:Testing performed by : [address] [address] Blood 12/11/2024 5:12 PM CDT 12/11/2024 5:14 PM CDT Rosa MCKEON LAB BLOOD ORDERABLES Final Resu lt Performing Organization Address [facility] Co de Phone Number MARY JANE [address] [place] [address] * POCT glucose (12/11/2024 3:29 PM CDT) [facility] Glucose, POC 141 70 - 199 mg/dL Comment:Testing performed by : [facility], [address] [place] [address]., [address] Blood 12/11/2024 3:29 PM CDT 12/11/2024 3:29 PM CDT us Notinfile Unknown LAB POCT ORDERABLES - DEVICE F inal Result Performing Organization Address [facility]/ZIP Co de Phone Number MARY JANE [address] [address] * (ABNORMAL) Troponin T high-sensitivity series (baseline, 2hr, 4hr, 6hr) (12/11/2024 3:01 PM CDT) [facility] Trop T hs 26(H) <=14 ng/L Comment: Interpretive Data For further hscTnT resources including the diagnostic algorithm and an aid in interpretation, copy and paste this link: https://nrl.testcatalog.org/show/hsTrop Current Interpretive Data last revised 2020. Testing performed by: [facility], [address] [place] [address]., [address] Blood 12/11/2024 3:01 PM CDT 12/11/2024 3:12 PM CDT Rosa MCKEON LAB BLOOD ORDERABLES Final Resu lt MARY JANE [address] [place] [address] * eGFR (12/11/2024 3:01 PM CDT) [facility] eGFR >90 >=60 mL/min/1. 73 m2 [...] last reviewed 2021. Testing performed by: [facility], [address] [place] [address]., [address] Blood 12/11/2024 3:01 PM CDT 12/11/2024 3:12 PM CDT us Rosa MCKEON LAB BLOOD ORDERABLES Final Resu lt [facility] [address] [facility] Department [place] [address] * Pro B-type natriuretic peptide [...] Revised Date: 2017. Testing performed by: [facility], [address] [place] [address]., [address] Blood 12/11/2024 3:01 PM CDT 12/11/2024 3:12 PM CDT Rosa MCKEON LAB BLOOD ORDERABLES Final Resu lt [facility] [address] [facility] Department of Laboratories [place], [place] [id number] * Pro B-type natriuretic peptide (12/11/2024 3:01 [...] Last Revised Date: 2017. Testing performed by: [address] [address] Blood 12/11/2024 3:01 PM CDT 12/11/2024 3:12 PM CDT us Rosa MCKEON LAB BLOOD ORDERABLES Final Resu lt MARY JANE [address] [facility] Department [place] [address] * Comprehensive metabolic panel (12/11/2024 3:01 PM CDT) Sodium 138 135 - 145 mmol/L Comment:Testing performed by : [address] [address] Potassium, pl 4.1 3.3 - 4.9 mmol/L MARY JANE PHAM Comment:Testing performed by : [address] [address] Chloride 99 97 - 110 mmol/L MARY JANE Comment:Testing performed by : [address] [address] CO2 25 22 - 32 mmol/L MARY JANE PHAM Comment:Testing performed by : [address] [address] Anion gap 14 2 - 15 mmol/L MARY JANE PHAM Comment:Testing performed by : [address] [address] BUN 18 6 - 25 mg/dL MARY JANE PHAM Comment:Testing performed by : [address] [address] Creatinine 0.70 0.60 - 1.10 mg/dL [facility] Comment:Testing performed by : [address] [address] Glucose 179 70 - 199 mg/dL [facility] Comment: Interpretive Data Fasting glucose >/= [...] was last revised 2022. Testing performed by: [address] [address] Calcium 10.0 8.5 - 10.3 mg/dL [facility] Comment:Testing performed by : [address] [address] Bilirubin, total 0.6 0.1 - 1.2 mg/dL [facility] Comment:Testing performed by : [address] [address] Protein, pl 7.8 6.5 - 8.5 g/dL [facility] Comment:Testing performed by : [address] [address] Albumin 4.1 3.5 - 5.0 g/dL [facility] Comment:Testing performed by : [address] [address] Alk phos 81 40 - 130 Units/L [facility] Comment:Testing performed by : [address] [address] ALT 21 7 - 45 Units/L [facility] Comment:Testing performed by : [address] [address] AST 21 10 - 45 Units/L [facility] Comment:Testing performed by : [address] [address] Blood 12/11/2024 3:01 PM CDT 12/11/2024 3:12 PM CDT us Rosa MCKEON LAB BLOOD ORDERABLES Final Resu lt MARY JANE MH [address] [facility] Department [place] [address] * XR Chest 1 Vw Portable (If [...] Olinda Bernal M.D. FT: FT Report ID: [id number] Reading Location: [id number] Procedure Note Olinda Wells MD - 12/11/2024 [...] Olinda Bernal M.D. FT: FT Report ID: [id number] Reading Location: [place] [address] Rosa MCKEON IMG XR PROCEDURES Final Result * (ABNORMAL) Differential, auto (12/11/2024 2:23 PM CDT) Neutrophil abs 7.54(H) 1.50 - 6.50 K/cumm Comment:Testing performed by : [address] [address] Imm gran abs 0.04 0.00 - 0.10 K/cumm MARY JANE Comment:Testing performed by : [address] [address] Lymphocyte abs 2.07 0.80 - 3.30 K/cumm MARY JANE Comment:Testing performed by : [address] [address] Monocyte abs 0.86(H) 0.20 - 0.80 K/cumm MARY JANE Comment:Testing performed by : [address] [address] Eosinophil abs 0.23 0.00 - 0.50 K/cumm MARY JANE Comment:Testing performed by : [address] [address] Basophil abs 0.05 0.00 - 0.10 K/cumm MARY JANE Comment:Testing performed by : [address] [address] Neutrophil pct 69.8 % MARY JANE Comment: Interpretive Data Percent cell count reference ranges are not reported, since discordance with absolute values may lead to misinterpretation of CBC data. Current Interpretive Data was last revised on 2017. Testing performed by: [address] [place]., [address] Imm gran pct 0.4 % [facility] Comment: Interpretive Data Percent cell count reference ranges are not reported, since discordance with absolute values may lead to misinterpretation of CBC data. Current Interpretive Data was last revised on 2017. Testing performed by: [address] [address] Lymphocyte pct 19.2 % [facility] Comment: Interpretive Data Percent cell count reference ranges are not reported, since discordance with absolute values may lead to misinterpretation of CBC data. Current Interpretive Data was last revised on 2017. Testing performed by: [address] [address] Monocyte pct 8.0 % [facility] Comment: Interpretive Data Percent cell count reference ranges are not reported, since discordance with absolute values may lead to misinterpretation of CBC data. Current Interpretive Data was last revised on 2017. Testing performed by: [address] [address] Eosinophil pct 2.1 % [facility] Comment: Interpretive Data Percent cell count reference ranges are not reported, since discordance with absolute values may lead to misinterpretation of CBC data. Current Interpretive Data was last revised on 2017. Testing performed by: [address] [address] Basophil pct 0.5 % [facility] Comment: Interpretive Data Percent cell count reference ranges are not reported, since discordance with absolute values may lead to misinterpretation of CBC data. Current Interpretive Data was last revised on 2017. Testing performed by: [address] [address] Blood 12/11/2024 2:23 PM CDT 12/11/2024 2:25 PM CDT us Rosa MCKEON LAB BLOOD ORDERABLES Final Resu lt MARY JANE [address] [facility] Department [place] [address] * (ABNORMAL) CBC with auto differential (12/11/2024 2:23 PM CDT) [facility] Signature WBC 10.79(H) 3.80 - 9.90 K/cumm Comment:Testing performed by : [address] [address] Hgb 13.3 11.9 - 15.5 g/dL MARY JANE Comment:Testing performed by : [address] [address] Hct 40.8 35.6 - 45.5 % MARY JANE Comment:Testing performed by : [address] [address] Plt 313 150 - 400 K/cumm MARY JANE Comment:Testing performed by : [address] [address] MPV 9.8 9.1 - 12.3 fL MARY JANE Comment:Testing performed by : [address], [address] RBC 4.64 3.90 - 5.20 M/cumm MARY JANE Comment:Testing performed by : [address] [address] MCV 87.9 81.3 - 96.4 fL MARY JANE Comment:Testing performed by : [address] [address] MCH 28.7 27.1 - 33.3 pg MARY JANE Comment:Testing performed by : [address], [address] MCHC 32.6 32.3 - 35.7 g/dL MARY AJNE Comment:Testing performed by : [address], [address] RDW CV 13.2 11.1 - 14.9 % MARY JANE Comment:Testing performed by : [address], [address] RDW SD 42.5 35.7 - 48.1 fL MARY JANE Comment:Testing performed by : [address] [address] NRBC abs 0.00 0.00 - 0.01 K/cumm MARY JANE Comment:Testing performed by : [address] [address] Blood Venous blood specimen / Unknown 12/11/2024 2:23 PM CDT 12/11/2024 2:25 PM CDT Rosa MCKEON LAB BLOOD ORDERABLES Final Resu lt Performing Organization Address City/[facility]/ZIP Co de Phone Number MARY JANE [address] [facility] Department [place] [address] * ECG 12 lead (12/11/2024 2:12 PM CDT) Ventricular Rate EKG/Min 85 BPM [facility] Atrial Rate 85 BPM [facility] AK-Interval (MSEC) 106 ms [facility] QRS-Interval (MSEC) 82 ms [facility] QT-Interval (MSEC) 352 ms [facility] QTc 418 ms [facility] P [place] -12 degrees [facility] R [place] 8 degrees [facility] T [place] 27 degrees [facility] Diagnosis Sinus rhythm with short AK Otherwise normal ECG When compared with ECG of 07-DEC-2024 22:32, Previous ECG has undetermined rhythm, needs review Confirmed by SAGAR DELEON M.D. ([id number]) on 12/11/2024 4:50:58 PM [facility] 12/11/2024 2:12 PM CDT 12/11/2024 4:50 PM CDT Rosa MCKEON ECG ORDERABLES Final Result Performing Organization Address [facility] Co de Phone Number [facility] * POCT glucose (12/08/2024 1:54 AM CDT) Glucose, POC 112 70 - 199 mg/dL Comment:Testing performed by : [address] [address] Glucose comment 1 RN/MD Notified MARY JANE PHAM Comment:Testing performed by : [address] [address] Blood 12/08/2024 1:54 AM CDT 12/08/2024 1:54 AM CDT us Gil Diez DO LAB POCT ORDERABLES - DEVIC E Final Result MARY JANE PHAM [address] [facility] [place] [address] * (ABNORMAL) Urinalysis reflex to microscopic and culture Urine (12/08/2024 1:50 AM CDT) Color, ur Yellow Yellow Comment:Testing performed by : [address] [address] Clarity, ur Clear Clear MARY JANE Comment:Testing performed by : [address] [address] Specific gravity, ur 1.020 1.003 - 1.030 MARY JANE Comment:Testing performed by : [address] [address] pH, urine 5.5 MARY JANE Comment: Interpretive Data U rine pH is affected by diet, medications, systemic acid-base disturbances, and renal tubular function. pH may affect urinary stone formation. For example, urine pH below 6.0 may help reduce the tendency for calcium phosphate stones and pH greater than 6.0 may reduce the tendency for uric acid stone formation. Source: [facility] [employer] Current Interpretive Data was last revised on 2017 Testing performed by: [address] [address] Protein, ur ql Negative Negative MARY JANE Comment:Testing performed by : [address] [address] Glucose, ur ql Negative Negative MARY JANE Comment:Testing performed by : [address] [address] Ketones, ur Negative Negative MARY JANE PHAM Comment:Testing performed by : [address] [address] Bilirubin, ur Negative Negative MARY JANE PHAM Comment:Testing performed by : [address] [address] Blood, ur Trace(A) Negative MARY JANE PHAM Comment:Testing performed by : [place] [address], [place]., [address] Urobilinogen, ur <2.0 <2.0 mg/dL MARY JANE PHAM Comment:Testing performed by : [facility] [address] [place] [address], [place]., [address] Nitrite, ur Negative Negative MARY JANE PHAM Comment:Testing performed by : [facility] [address] [place] [address], [place]., [address] Leukocyte esterase, ur Negative Negative MARY JANE PHAM Comment:Testing performed by : [facility] [address] [place] [address], [place]., [address] UA reflex comment Reflex to microscopic UA will be performed. MARY JANE PHAM Comment:Testing performed by : [facility] [address] [place] [address], [place]., [address] Urine 12/08/2024 1:50 AM CDT 12/08/2024 1:53 AM CDT Gil Deiz DO LAB MICROBIOLOGY - GENERAL ORDERABLES Final Result MARY JANE [facility] [facility] Department [place] [address] * (ABNORMAL) Urinalysis, microscopic only (12/08/2024 1:50 AM CDT) WBC, ur 0-5 0 - 5 /HPF Comment:Testing performed by : [facility] [address] [place] [address], [place]., [address] RBC, ur 0-2 0 - 2 /HPF MARY JANE PHAM Comment:Testing performed by : [facility] [address] [place] [address], [place]., [address] Epithelial cells, squamous, ur 6-10(A) 0 - 5 /HPF MARY JANE Comment:Testing performed by : [facility] [address] [place] [address], [place]., [address] Mucous, ur Present(A) MARY JANE PHAM Comment:Testing performed by : [address], [place]., [address] Culture Reflex Comment Reflex conditions for urine culture (WBC >10) not met. MARY JANE PHAM Comment:Testing performed by : [address], [place]., [address] Urine 12/08/2024 1:50 AM CDT 12/08/2024 1:53 AM CDT Gil Diez LAB URINE ORDERABLES Final Result Performing Organization Address [facility] de Phone Number MARY JANE [address] [address] * (ABNORMAL) Troponin T high-sensitivity (12/08/2024 1:17 AM CDT) Pathologist [facility] Trop T hs 28(H) <=14 ng/L Comment: Interpretive Data For further hscTnT resources including the diagnostic algorithm and an aid in interpretation, copy and paste this link: https://nrl.testcatalog.org/show/hsTrop Current Interpretive Data last revised 2020. Testing performed by: [address] [address] Blood 12/08/2024 1:17 AM CDT 12/08/2024 1:20 AM CDT Gil Diez DO LAB BLOOD ORDERABLES Final Result Performing Organization Address [facility] de Phone Number [address] [address] * Influenza A/B, RSV, and COVID-19 PCR Nasopharyngeal (12/08/2024 1:05 AM CDT) [facility] COVID-[facility] RNA Negative Negative Comment:Testing performed by : [address] [address] Influenza A RNA Negative Negative MARY JANE Comment:Testing performed by : [address] [address] Influenza B RNA Negative Negative MARY JANE Comment:Testing performed by : [address] [address] RSV RNA Negative Negative MARY JANE Comment: Interpretive data: Testing performed by [facility]. This test is performed using the Cepheid Xpert Xpress CoV-2/Flu/RSV plus assay. This is [...] Data last revised 2023 Testing performed by: [facility], [address] [place] [address]., [address] Nasopharyngeal 12/08/2024 1: 05 AM CDT 12/08/2024 1:10 AM CDT Narrative MARY JANE - 12/08/2024 1:49 AM CDT Is the Patient experiencing symptoms consistent with COVID?->Yes Gil Diez DO LAB MICROBIOLOGY - GENERAL ORDERABLES Final Result Performing Organization Address City/State/[facility] Co de Phone Number MARY JANE [address] [facility] [place] [address] * CT Chest WO Contrast [...] Juve Gallegos M.D. AR: VALERY Report ID: [id number] Reading Location: [id number] Procedure Note Juve Gallegos MD - 12/08/2024 [...] Juve Gallegos M.D. AR: VALERY Report ID: [id number] Reading Location: [id number] Gil Diez DO IMG CT PROCEDURES Final Res ult * POCT glucose (12/08/2024 12:32 AM CDT) Glucose, POC 92 70 - 199 mg/dL Comment:Testing performed by : [address] [address] Blood 12/08/2024 12:3 2 AM CDT 12/08/2024 12:32 AM CDT Gil Diez DO LAB POCT ORDERABLES - DEVIC E Final Result Performing Organization Address [facility] de Phone Number [address] [place] [address] * POCT glucose (12/08/2024 12:15 AM CDT) Glucose, POC 88 70 - 199 mg/dL Comment:Testing performed by : [address] [address] Glucose comment 1 RN/MD Notified [facility] Comment:Testing performed by : [address] [address] Blood 12/08/2024 12:1 5 AM CDT 12/08/2024 12:15 AM CDT Gil Diez DO LAB POCT ORDERABLES - DEVIC E Final Result Performing Organization Address City/[facility] de Phone Number [address] [place] [employer] [address] * POCT glucose (12/07/2024 11:58 PM CDT) Glucose, POC 80 70 - 199 mg/dL Comment:Testing performed by : [facility], [address] [place] [address]., [address] Glucose comment 1 RN/MD Notified MARY JANE PHAM Comment:Testing performed by : [address] [address] Glucose comment 2 Will Repeat Test MARY JANE PHAM Comment:Testing performed by : [address] [address] Blood 12/07/2024 11:5 8 PM CDT 12/07/2024 11:58 PM CDT Gil Diez DO LAB POCT ORDERABLES - DEVIC E Final Result Performing Organization Address [facility] Co de Phone Number MARY JANE [address] [place] [address] * (ABNORMAL) POCT glucose (12/07/2024 11:42 PM CDT) [facility] Glucose, POC 67(L) 70 - 199 mg/dL Comment:Testing performed by : [address] [address] Glucose comment 1 RN/MD Notified MARY JANE Comment:Testing performed by : [address] [address] Blood 12/07/2024 11:4 2 PM CDT 12/07/2024 11:42 PM CDT Gil Diez DO LAB POCT ORDERABLES - DEVIC E Final Result Performing Organization Address [facility] Co de Phone Number [address] [place] [address] * CT Head WO Contrast (12/07/2024 11:26 [...] Patrick Zhou M.D. KH: KATH Report ID: [id number] Reading Location: [place] [address] Procedure Note Patrick Zhou MD - 12/07/2024 [...] Patrick Zhou M.D. KH: KATH Report ID: [id number] Reading Location: [place] [address] Gil Diez DO IMG CT PROCEDURES Final Res ult * POCT glucose (12/07/2024 11:08 PM CDT) Glucose, POC 75 70 - 199 mg/dL Comment:Testing performed by : [address] [address] Blood 12/07/2024 11:0 8 PM CDT 12/07/2024 11:08 PM CDT Gil Diez DO LAB POCT ORDERABLES - DEVIC E Final Result Performing Organization Address City/[facility] Co de Phone Number [address] [place] [address] * POCT glucose (12/07/2024 11:07 PM CDT) Glucose, POC 71 70 - 199 mg/dL Comment:Testing performed by : [address] [address] Blood 12/07/2024 11:0 7 PM CDT 12/07/2024 11:07 PM CDT Gil Diez DO LAB POCT ORDERABLES - DEVIC E Final Result Performing Organization Address City/[facility] de Phone Number [address] [place] [address] * XR Chest 1 Vw Portable (If [...] Patrick Zhou M.D. KH: KATH Report ID: [id number] Reading Location: [id number] Procedure Note Patrick Zhou MD - 12/07/2024 [...] Patrick Zhou M.D. KH: KATH Report ID: [id number] Reading Location: [place] [address] Gil Diez DO IMG XR PROCEDURES Final Res ult * (ABNORMAL) Troponin T high-sensitivity series (baseline, 2hr, 4hr, 6hr) (12/07/2024 10:47 PM CDT) Trop T hs 30(H) <=14 ng/L Comment: Interpretive Data For further hscTnT resources including the diagnostic algorithm and an aid in interpretation, copy and paste this link: https://nrl.testcatalog.org/show/hsTrop Current Interpretive Data last revised 2020. Testing performed by: [facility], [address] [place] [address]., [address] Blood 12/07/2024 10:4 7 PM CDT 12/07/2024 10:51 PM CDT Gil Diez DO LAB BLOOD ORDERABLES Final Result [facility] [address] [facility] [place] [address] * eGFR (12/07/2024 10:47 PM [...] was last reviewed 2021. Testing performed by: [address] [address] Blood 12/07/2024 10:4 7 PM CDT 12/07/2024 10:51 PM CDT Gil Diez DO LAB BLOOD ORDERABLES Final Result MARY JANE [facility] [facility] Department [place] [address] * (ABNORMAL) Differential, auto (12/07/2024 10:47 PM CDT) Neutrophil abs 7.66(H) 1.50 - 6.50 K/cumm Comment:Testing performed by : [address] [address] Imm gran abs 0.06 0.00 - 0.10 K/cumm MARY JANE Comment:Testing performed by : [address] [address] Lymphocyte abs 3.48(H) 0.80 - 3.30 K/cumm MARY JANE Comment:Testing performed by : [address] [address] Monocyte abs 1.03(H) 0.20 - 0.80 K/cumm MARY JANE Comment:Testing performed by : [address] [address] Eosinophil abs 0.22 0.00 - 0.50 K/cumm MARY JANE Comment:Testing performed by : [address] [address] Basophil abs 0.05 0.00 - 0.10 K/cumm MARY JANE Comment:Testing performed by : [address] [address] Neutrophil pct 61.3 % [facility] Comment: Interpretive Data Percent cell count reference ranges are not reported, since discordance with absolute values may lead to misinterpretation of CBC data. Current Interpretive Data was last revised on 2017. Testing performed by: [address] [address] Imm gran pct 0.5 % [facility] Comment: Interpretive Data Percent cell count reference ranges are not reported, since discordance with absolute values may lead to misinterpretation of CBC data. Current Interpretive Data was last revised on 2017. Testing performed by: [address] [address] Lymphocyte pct 27.8 % [facility] Comment: Interpretive Data Percent cell count reference ranges are not reported, since discordance with absolute values may lead to misinterpretation of CBC data. Current Interpretive Data was last revised on 2017. Testing performed by: [address] [address] Monocyte pct 8.2 % [facility] Comment: Interpretive Data Percent cell count reference ranges are not reported, since discordance with absolute values may lead to misinterpretation of CBC data. Current Interpretive Data was last revised on 2017. Testing performed by: [address] [address] Eosinophil pct 1.8 % [facility] Comment: Interpretive Data Percent cell count reference ranges are not reported, since discordance with absolute values may lead to misinterpretation of CBC data. Current Interpretive Data was last revised on 2017. Testing performed by: [address] [address] Basophil pct 0.4 % [facility] Comment: Interpretive Data Percent cell count reference ranges are not reported, since discordance with absolute values may lead to misinterpretation of CBC data. Current Interpretive Data was last revised on 2017. Testing performed by: [address] [address] Blood 12/07/2024 10:4 7 PM CDT 12/07/2024 10:51 PM CDT Gil Diez DO LAB BLOOD ORDERABLES Final Result MARY JANE [place] [address] [facility] [place] [address] * Pro B-type natriuretic peptide [...] Revised Date: 2017. Testing performed by: [facility], [address] [place] [address]., [address] Blood 12/07/2024 10:4 7 PM CDT 12/07/2024 10:51 PM CDT Gil Diez DO LAB BLOOD ORDERABLES Final Result [facility] [address] [facility] [place] [address] * (ABNORMAL) CBC with auto differential (12/07/2024 10:47 PM CDT) WBC 12.50(H) 3.80 - 9.90 K/cumm Comment:Testing performed by : [address] [address] Hgb 13.2 11.9 - 15.5 g/dL MARY JANE Comment:Testing performed by : [address] [address] Hct 41.9 35.6 - 45.5 % MARY JANE Comment:Testing performed by : [address] [address] Plt 315 150 - 400 K/cumm MARY JANE Comment:Testing performed by : [address] [address] MPV 9.7 9.1 - 12.3 fL MARY JANE Comment:Testing performed by : [address] [address] RBC 4.65 3.90 - 5.20 M/cumm MARY JANE Comment:Testing performed by : [address] [address] MCV 90.1 81.3 - 96.4 fL MARY JANE Comment:Testing performed by : [address] [address] MCH 28.4 27.1 - 33.3 pg MARY JANE Comment:Testing performed by : [address] [address] MCHC 31.5(L) 32.3 - 35.7 g/dL MARY JANE Comment:Testing performed by : [address] [address] RDW CV 13.3 11.1 - 14.9 % MARY JANE Comment:Testing performed by : [address] [address] RDW SD 43.7 35.7 - 48.1 fL MARY JANE PHAM Comment:Testing performed by : [address] [address] NRBC abs 0.00 0.00 - 0.01 K/cumm MARY JANE PHAM Comment:Testing performed by : [address] [address] Blood 12/07/2024 10:4 7 PM CDT 12/07/2024 10:51 PM CDT Gil Diez LAB BLOOD ORDERABLES Final Result Performing Organization Address City/[facility]/ZIP Co de Phone Number [address] [place] [address] * Magnesium (12/07/2024 10:47 PM CDT) Pathologist [facility] Magnesium 1.9 1.4 - 2.5 mg/dL Comment:Testing performed by : [address] [address] Blood 12/07/2024 10:4 7 PM CDT 12/07/2024 10:51 PM CDT Gil Diez LAB BLOOD ORDERABLES Final Result Performing Organization Address [facility]/ZIP Co de Phone Number [address] [place] [address] * (ABNORMAL) Comprehensive metabolic panel (12/07/2024 10:47 PM CDT) Sodium 141 135 - 145 mmol/L Comment:Testing performed by : [address] [address] Potassium, pl 3.9 3.3 - 4.9 mmol/L MARY JANE PHAM Comment:Testing performed by : [address] [address] Chloride 102 97 - 110 mmol/L MARY JANE PHAM Comment:Testing performed by : [address] [address] CO2 25 22 - 32 mmol/L MARY JANE PHAM Comment:Testing performed by : [address] [address] Anion gap 14 2 - 15 mmol/L MARY JANE Comment:Testing performed by : [address] [address] BUN 19 6 - 25 mg/dL MARY JANE Comment:Testing performed by : [address] [address] Creatinine 0.78 0.60 - 1.10 mg/dL MARY JANE Comment:Testing performed by : [address] [address] Glucose 92 70 - 199 mg/dL MARY [...] was last revised 2022. Testing performed by: [address] [address] Calcium 10.7(H) 8.5 - 10.3 mg/dL MARY JANE Comment:Testing performed by : [address] [address] Bilirubin, total 0.5 0.1 - 1.2 mg/dL MARY JANE Comment:Testing performed by : [address] [address] Protein, pl 8.4 6.5 - 8.5 g/dL MARY JANE Comment:Testing performed by : [address] [address] Albumin 4.1 3.5 - 5.0 g/dL MARY JANE Comment:Testing performed by : [address] [address] Alk phos 79 40 - 130 Units/L MARY JANE Comment:Testing performed by : [facility], [address] [place] [address]., [address] ALT 21 7 - 45 Units/L MARY JANE PHAM Comment:Testing performed by : [address] [address] AST 21 10 - 45 Units/L MARY JANE Comment:Testing performed by : [address] [address] Blood 12/07/2024 10:4 7 PM CDT 12/07/2024 10:51 PM CDT Gil Diez DO LAB BLOOD ORDERABLES Final Result Performing Organization Address City/[facility]/ZIP Co de Phone Number [facility] [address] [facility] Department [place] [address] * ECG 12 lead (12/07/2024 10:32 PM CDT) Ventricular Rate EKG/Min 78 BPM [facility] Atrial Rate 78 BPM [facility] AK-Interval (MSEC) 104 ms [facility] QRS-Interval (MSEC) 84 ms [facility] QT-Interval (MSEC) 392 ms [facility] QTc 446 ms [facility] P [place] -65 degrees [facility] R [place] 0 degrees [facility] T [place] 44 degrees [facility] Diagnosis Sinus rhythm. Otherwise normal ECG When compared with ECG of 07-DEC-2024 22:32, Premature ventricular complexes are no longer Present Premature atrial complexes are now Present Confirmed by MD JOHNNA, VINCENT ([id number]) on 12/08/2024 11:31:38 PM [facility] 12/07/2024 10:3 2 PM CDT 12/08/2024 11:31 PM CDT Gil Diez DO ECG ORDERABLES Final Resul t [facility] * ECG 12 lead (12/07/2024 10:32 PM CDT) Ventricular Rate EKG/Min 75 BPM [facility] Atrial Rate 75 BPM [facility] AK-Interval (MSEC) 138 ms [facility] QRS-Interval (MSEC) 84 ms [facility] QT-Interval (MSEC) 360 ms [facility] QTc 402 ms [facility] P [place] -78 degrees [facility] R [place] -3 degrees [facility] T [place] 33 degrees [facility] Diagnosis Unusual P axis and short [place], probable junctional rhythm with occasional Premature ventricular complexes Abnormal ECG When compared with ECG of 02-DEC-2024 15:33, Junctional rhythm has replaced Sinus rhythm Confirmed by MD OROPEZA ROBERT ([id number]), purchase request editor RIMA GELLER ([id number]) on 12/08/2024 8:22:42 AM Also confirmed by MD OROPEZA ROBERT ([id number]), purchase request editor KRISTINE LEIJA ([id number]) on 12/09/2024 8:25:14 AM [facility] 12/07/2024 10:3 2 PM CDT 12/09/2024 8:25 AM CDT us Gil Diez DO ECG ORDERABLES Edited Resu lt - Final Performing Organization Address City/[facility]/ZIP Co de Phone Number [facility] * (ABNORMAL) POCT glucose (12/05/2024 1:27 PM CDT) [facility] Glucose, POC 251(H) 70 - 199 mg/dL Comment:Testing performed by : [address] [address] Glucose comment 1 RN/MD Notified MARY JANE Comment:Testing performed by : [address] [address] Blood 12/05/2024 1:27 PM CDT 12/05/2024 1:27 PM CDT Kenzie Jiménez MD LAB POCT ORDERABLES - DE VICE Final Result Performing Organization Address City/[facility]/ZIP Co de Phone Number MARY JANE [address] [facility] Department [place] [address] * XR Chest PA Lateral [...] Barbara Man M.D. TW: TW Report ID: [id number] Reading Location: [id number] Procedure Note Barbara Man MD - 12/05/2024 [...] Barbara Man M.D. TW: TW Report ID: [id number] Reading Location: [id number] Kenzie Jiménez MD IMG XR PROCEDURES Final Result * POCT glucose (12/05/2024 8:38 AM CDT) [facility] Glucose, POC 144 70 - 199 mg/dL Comment:Testing performed by : [address], [address] Glucose comment 1 RN/MD Notified MARY JANE Comment:Testing performed by : [facility], [address] [place] [address]., [address] Blood 12/05/2024 8:38 AM CDT 12/05/2024 8:38 AM CDT Kenzie Jiménez MD LAB POCT ORDERABLES - DE VICE Final Result [facility] [address] [facility] Department [place] [address] * eGFR (12/05/2024 5:04 AM CDT) Pathologist [facility] eGFR >90 >=60 mL/min/1. 73 m2 Comment: [...] was last reviewed 2021. Testing performed by: [address] [address] Blood 12/05/2024 5:04 AM CDT 12/05/2024 5:24 AM CDT us Santos Wallace MD LAB BLOOD ORDERABLES Final Res ult MARY JANE [address] [facility] [place] [address] * (ABNORMAL) CBC without differential (12/05/2024 5:04 AM CDT) WBC 11.17(H) 3.80 - 9.90 K/cumm Comment:Testing performed by : [address] [address] Hgb 12.2 11.9 - 15.5 g/dL MARY JANE PHAM Comment:Testing performed by : [address] [address] Hct 38.4 35.6 - 45.5 % MARY JANE PHAM Comment:Testing performed by : [address] [address] Plt 286 150 - 400 K/cumm MARY JANE PHAM Comment:Testing performed by : [address] [address] MPV 9.8 9.1 - 12.3 fL MARY JANE PHAM Comment:Testing performed by : [address] [address] RBC 4.27 3.90 - 5.20 M/cumm MARY JANE PHAM Comment:Testing performed by : [address] [address] MCV 89.9 81.3 - 96.4 fL MARY JANE PHAM Comment:Testing performed by : [address] [address] MCH 28.6 27.1 - 33.3 pg MARY JANE PHAM Comment:Testing performed by : [address] [address] MCHC 31.8(L) 32.3 - 35.7 g/dL MARY JANE PHAM Comment:Testing performed by : [address] [address] RDW CV 13.5 11.1 - 14.9 % MARY JANE PHAM Comment:Testing performed by : [address] [address] RDW SD 44.3 35.7 - 48.1 fL MARY JANE PHAM Comment:Testing performed by : [address] [address] NRBC abs 0.00 0.00 - 0.01 K/cumm MARY JANE PHAM Comment:Testing performed by : [address] [address] Blood 12/05/2024 5:04 AM CDT 12/05/2024 5:24 AM CDT us Santos Wallace MD LAB BLOOD ORDERABLES Final Res ult MARY JANE [facility] [facility] Department of Laboratories [place], [place] [id number] * Basic metabolic panel (12/05/2024 5:04 AM CDT) Sodium 138 135 - 145 mmol/L Comment:Testing performed by : [address] [address] Potassium, pl 3.7 3.3 - 4.9 mmol/L MARY JANE PHAM Comment:Testing performed by : [address] [address] Chloride 101 97 - 110 mmol/L MARY JANE PHAM Comment:Testing performed by : [address] [address] CO2 25 22 - 32 mmol/L MARY JANE PHAM Comment:Testing performed by : [address] [address] Anion gap 12 2 - 15 mmol/L MARY JANE Comment:Testing performed by : [address] [address] BUN 20 6 - 25 mg/dL MARY JANE Comment:Testing performed by : [address] [address] Creatinine 0.71 0.60 - 1.10 mg/dL MARY JANE Comment:Testing performed by : [address] [address] Glucose 159 70 - 199 mg/dL MARY [...] was last revised 2022. Testing performed by: [address] [address] Calcium 9.5 8.5 - 10.3 mg/dL MARY JANE Comment:Testing performed by : [address] [address] Blood 12/05/2024 5:04 AM CDT 12/05/2024 5:24 AM CDT us Santos Wallace MD LAB BLOOD ORDERABLES Final Res ult BCPUJA [address] [facility] Department [place] [address] * POCT glucose (12/04/2024 8:45 PM CDT) [facility] Signature Glucose, POC 147 70 - 199 mg/dL Comment:Testing performed by : [address] [address] Blood 12/04/2024 8:45 PM CDT 12/04/2024 8:45 PM CDT Kenzie Jiménez MD LAB POCT ORDERABLES - DE VICE Final Result Performing Organization Address [facility] Co de Phone Number MARY JANE [address] [address] * POCT glucose (12/04/2024 4:27 PM CDT) Glucose, POC 153 70 - 199 mg/dL Comment:Testing performed by : [facility], [address] [place] [address]., [address] Blood 12/04/2024 4:27 PM CDT 12/04/2024 4:27 PM CDT Kenzie Jiménez MD LAB POCT ORDERABLES - DE VICE Final Result Performing Organization Address [facility] Co de Phone Number MARY JANE [address] [address] * NM Myocardial Amyloidosis Imaging [employer] [...] Olinda Bernal M.D. FT: FT Report ID: [id number] Reading Location: [id number] Procedure Note Olinda Wells MD - 12/04/2024 [...] Olinda Bernal M.D. FT: FT Report ID: [id number] Reading Location: [place] [address] Salinas Medina MD [facility] PROCEDURES Final Result * POCT glucose (12/04/2024 11:15 AM CDT) [facility] Signature Glucose, POC 91 70 - 199 mg/dL Comment:Testing performed by : [facility], [address] [place] [address], [place]., [address] Blood 12/04/2024 11:1 5 AM CDT 12/04/2024 11:15 AM CDT us Kenzie Jiménez MD LAB POCT ORDERABLES - DE VICE Final Result MARY JANE [address] [place] [address] * POCT glucose (12/04/2024 7:57 AM CDT) Glucose, POC 150 70 - 199 mg/dL Comment:Testing performed by : [address] [address] Blood 12/04/2024 7:57 AM CDT 12/04/2024 7:57 AM CDT Kenzie Jiménez MD LAB POCT ORDERABLES - DE VICE Final Result Performing Organization Address City/[facility] Co de Phone Number MARY JANE [address] [place] [address] * eGFR (12/04/2024 5:35 AM CDT) eGFR [...] was last reviewed 2021. Testing performed by: [address] [address] Blood 12/04/2024 5:35 AM CDT 12/04/2024 6:37 AM CDT Kenzie Jiménez MD LAB BLOOD ORDERABLES Fin al Result MARY JANE [address] [facility] [place] [address] * (ABNORMAL) Differential, auto (12/04/2024 5:35 AM CDT) Neutrophil abs 7.29(H) 1.50 - 6.50 K/cumm Comment:Testing performed by : [address] [address] Imm gran abs 0.06 0.00 - 0.10 K/cumm MARY JANE Comment:Testing performed by : [address] [address] Lymphocyte abs 2.56 0.80 - 3.30 K/cumm MARY JANE Comment:Testing performed by : [address] [address] Monocyte abs 0.75 0.20 - 0.80 K/cumm MARY JANE Comment:Testing performed by : [address] [address] Eosinophil abs 0.21 0.00 - 0.50 K/cumm MARY JANE Comment:Testing performed by : [address] [address] Basophil abs 0.03 0.00 - 0.10 K/cumm MARY JANE Comment:Testing performed by : [address] [address] Neutrophil pct 66.8 % MARY JANE Comment: Interpretive Data Percent cell count reference ranges are not reported, since discordance with absolute values may lead to misinterpretation of CBC data. Current Interpretive Data was last revised on 2017. Testing performed by: [address] [address] Imm gran pct 0.6 % MARY JANE Comment: Interpretive Data Percent cell count reference ranges are not reported, since discordance with absolute values may lead to misinterpretation of CBC data. Current Interpretive Data was last revised on 2017. Testing performed by: [address] [address] Lymphocyte pct 23.5 % [facility] Comment: Interpretive Data Percent cell count reference ranges are not reported, since discordance with absolute values may lead to misinterpretation of CBC data. Current Interpretive Data was last revised on 2017. Testing performed by: [address] [address] Monocyte pct 6.9 % [facility] Comment: Interpretive Data Percent cell count reference ranges are not reported, since discordance with absolute values may lead to misinterpretation of CBC data. Current Interpretive Data was last revised on 2017. Testing performed by: [address] [address] Eosinophil pct 1.9 % [facility] Comment: Interpretive Data Percent cell count reference ranges are not reported, since discordance with absolute values may lead to misinterpretation of CBC data. Current Interpretive Data was last revised on 2017. Testing performed by: [address] [address] Basophil pct 0.3 % [facility] Comment: Interpretive Data Percent cell count reference ranges are not reported, since discordance with absolute values may lead to misinterpretation of CBC data. Current Interpretive Data was last revised on 2017. Testing performed by: [address] [address] Blood 12/04/2024 5:35 AM CDT 12/04/2024 6:37 AM CDT us Kenzie Jiménez MD LAB BLOOD ORDERABLES Fin al Result MARY JANE [address] [facility] [place] [address] * (ABNORMAL) Immunoglobulin free light chains (12/04/2024 5:35 AM CDT) Pathologist [facility] Cylinder/Lambda ratio [facility] 1.26 0.26 - 1.65 Comment: Interpretive Data The Binding Site FreeLite assay procedure was used. Results from different manufacturers or methods may not be comparable. Serial testing should be performed using the same methods and instrumentation. Current Interpretive Data was last revised on 2023. Testing performed by: [facility], [address] [place]., [address] Cylinder free light chain [facility] 3.37(H) 0.33 - 1.94 mg/dL MARY JANE PHAM Comment: Interpretive Data The Binding Site FreeLite assay procedure was used. Results from different manufacturers or methods may not be comparable. Serial testing should be performed using the same methods and instrumentation. Current Interpretive Data was last revised on 2023. Testing performed by: [facility], [address] [place]., [address] Lambda free light chain [facility] 2.67(H) 0.57 - 2.63 mg/dL MARY JANE PHAM Comment: Interpretive Data The Binding Site FreeLite assay procedure was used. Results from different manufacturers or methods may not be comparable. Serial testing should be performed using the same methods and instrumentation. Current Interpretive Data was last revised on 2023. Testing performed by: [facility], [address] [place]., [address] Blood 12/04/2024 5:35 AM CDT 12/04/2024 9:21 AM CDT Salinas Medina MD LAB BLOOD ORDERABLES Fi nal Result MARY JANE PHAM [address] [facility] [place] [address] * (ABNORMAL) CBC with auto differential (12/04/2024 5:35 AM CDT) WBC 10.90(H) 3.80 - 9.90 K/cumm Comment:Testing performed by : [address] [address] Hgb 12.0 11.9 - 15.5 g/dL MARY JANE PHAM Comment:Testing performed by : [address] [place]., [address] Hct 38.0 35.6 - 45.5 % MARY JANE Comment:Testing performed by : [address], [address] Plt 258 150 - 400 K/cumm MARY JANE Comment:Testing performed by : [address], [address] MPV 10.1 9.1 - 12.3 fL MARYJ ANE Comment:Testing performed by : [address], [address] RBC 4.18 3.90 - 5.20 M/cumm MARY JNAE Comment:Testing performed by : [address], [address] MCV 90.9 81.3 - 96.4 fL MARY JANE Comment:Testing performed by : [address], [address] MCH 28.7 27.1 - 33.3 pg MARY JANE Comment:Testing performed by : [address], [address] MCHC 31.6(L) 32.3 - 35.7 g/dL MARY JANE Comment:Testing performed by : [address], [address] RDW CV 13.5 11.1 - 14.9 % MARY JANE Comment:Testing performed by : [address], [address] RDW SD 45.0 35.7 - 48.1 fL MARY JANE Comment:Testing performed by : [address], [address] NRBC abs 0.00 0.00 - 0.01 K/cumm MARY JANE Comment:Testing performed by : [address], [address] Blood 12/04/2024 5:35 AM CDT 12/04/2024 6:37 AM CDT us Kenzie Jiménez MD LAB BLOOD ORDERABLES Fin al Result CERNER [facility] [address] [place] [address] * Magnesium (12/04/2024 5:35 AM CDT) [facility] Magnesium 1.7 1.4 - 2.5 mg/dL Comment:Testing performed by : [address] [address] Blood 12/04/2024 5:35 AM CDT 12/04/2024 6:37 AM CDT Kenzie Jiménez MD LAB BLOOD ORDERABLES Fin al Result Performing Organization Address [facility] de Phone Number [address] [address] * (ABNORMAL) Hemoglobin A1c (12/04/2024 5:35 AM CDT) [facility] Hgb A1C 9.7(H) 4.0 - 5.6 % Comment:Testing performed by : [address] [address] Estimated Average Glucose 232 mg/dL [facility] Comment: The ADA recommends reporting an estimated Average Glucose (eAG) with all Hemoglobin A1c results using the equation derived from a study of 507 normal and diabetic adults. Minority populations were underrepresented and children were not included. (Diabetes Care 31:7871-2496, 2008). The eAG is not equivalent to a fasting glucose. Testing performed by: [address] [address] Blood 12/04/2024 5:35 AM CDT 12/04/2024 6:39 AM CDT us Salinas Medina MD LAB BLOOD ORDERABLES Fi nal Result Performing Organization Address [facility] Co de Phone Number [address] [address] * Lipid panel (12/04/2024 5:35 AM CDT) [...] last revised on 2017. Testing performed by: [address] [address] Triglycerides 140 <=149 mg/dL MARY JANE Comment: [...] last revised on 2017. Testing performed by: [address] [address] HDL 43 >=40 mg/dL MARY JANE Comment: [...] last revised on 2017. Testing performed by: [address] [address] LDL, calculated 108 <=129 mg/dL MARY JANE [...] last revised on 2023. Testing performed by: [address] [address] Non-HDL Cholesterol 133 mg/dL MARY JANE Comment: [...] last revised on 2017. Testing performed by: [address] [address] Chol/HDL ratio 4 MARY JANE Comment:Testing performed by : [address] [address] Blood 12/04/2024 5:35 AM CDT 12/04/2024 6:37 AM CDT Salinas Medina MD LAB BLOOD ORDERABLES [facility] Result MARY JANE [address] [facility] Department [place] [address] * (ABNORMAL) Comprehensive metabolic panel (12/04/2024 5:35 AM CDT) Sodium 136 135 - 145 mmol/L Comment:Testing performed by : [address] [address] Potassium, pl 3.9 3.3 - 4.9 mmol/L MARY JANE Comment:Testing performed by : [address], [place]., [address] Chloride 99 97 - 110 mmol/L MARY JANE Comment:Testing performed by : [address] [address] CO2 26 22 - 32 mmol/L MARY JANE Comment:Testing performed by : [address] [address] Anion gap 11 2 - 15 mmol/L MARY JANE Comment:Testing performed by : [address] [address] BUN 17 6 - 25 mg/dL MARY JANE Comment:Testing performed by : [address] [address] Creatinine 0.69 0.60 - 1.10 mg/dL MARY JANE Comment:Testing performed by : [address] [address] Glucose 149 70 - 199 mg/dL [facility] Comment: Interpretive Data Fasting glucose >/= 126 [...] was last revised 2022. Testing performed by: [address] [address] Calcium 9.5 8.5 - 10.3 mg/dL MARY JANE Comment:Testing performed by : [address] [address] Bilirubin, total 0.8 0.1 - 1.2 mg/dL MARY JANE Comment:Testing performed by : [address] [address] Protein, pl 6.8 6.5 - 8.5 g/dL MARY JANE Comment:Testing performed by : [address] [address] Albumin 3.3(L) 3.5 - 5.0 g/dL MARY JANE Comment:Testing performed by : [address] [address] Alk phos 64 40 - 130 Units/L MARY JANE Comment:Testing performed by : [address] [address] ALT 17 7 - 45 Units/L MARY JANE Comment:Testing performed by : [address] [address] AST 15 10 - 45 Units/L MARY JANE Comment:Testing performed by : [address] [address] Blood 12/04/2024 5:35 AM CDT 12/04/2024 6:37 AM CDT Kenzie Jiménez MD LAB BLOOD ORDERABLES Fin al Result MARY JANE [address] [facility] Department [place] [address] * POCT glucose (12/03/2024 9:20 PM CDT) [facility] Signature Glucose, POC 105 70 - 199 mg/dL Comment:Testing performed by : [address] [address] Blood 12/03/2024 9:20 PM CDT 12/03/2024 9:20 PM CDT Kenzie Jiménez MD LAB POCT ORDERABLES - DE VICE Final Result Performing Organization Address City/[facility] Co de Phone Number MARY JANE [facility] [place] [address] * POCT glucose (12/03/2024 4:42 PM CDT) Glucose, POC 145 70 - 199 mg/dL Comment:Testing performed by : [address] [address] Glucose comment 1 Will Repeat Test MARY JANE Comment:Testing performed by : [address] [address] Glucose comment 2 RN/MD Notified MARY JANE Comment:Testing performed by : [address] [address] Blood 12/03/2024 4:42 PM CDT 12/03/2024 4:42 PM CDT us Kenzie Jiménez MD LAB POCT ORDERABLES - DE VICE Final Result Performing Organization Address [facility] Co wy Phone Number MARY JANE [facility] [place] [address] * POCT glucose (12/03/2024 12:25 PM CDT) Glucose, POC 199 70 - 199 mg/dL Comment:Testing performed by : [address] [address] Glucose comment 1 Will Repeat Test MARY JANE Comment:Testing performed by : [address] [address] Glucose comment 2 RN/MD Notified MARY JANE Comment:Testing performed by : [address] [address] Blood 12/03/2024 12:2 5 PM CDT 12/03/2024 12:25 PM CDT us Kenzie Jiménez MD LAB POCT ORDERABLES - DE VICE Final Result MARY JANE [address] [facility] Department [place] [address] * TRANSTHORACIC ECHO (TTE) COMPLETE W DOPPLER/CF [...] AM Ht(Inch): 61 Wt(Lb): 275.99 BSA: 2.32 Soil Surveyor: Coni Vee RDCS Location: [id number] Order Provider: PATRICK RICE Heart Rate: 76 BMI: 52.14 BP: 130 / 79 Ref Provider: PATRICK RICE PROCEDURES: Echocardiographic Report: ([id number]) Transthoracic complete echo with contrast, 2D, spectral [...] AM Ht(Inch): 61 Wt(Lb): 275.99 BSA: 2.32 Soil Surveyor: Coni Vee TOYA Location: [id number] Order Provider:PATRICK RICE Heart Rate: 76 BMI: 52.14 BP: 130 / 79 Ref Provider: PATRICK RICE PROCEDURES: Echocardiographic Report: ([id number]) Transthoracic complete echo withcontrast, 2D, spectral and [...] LA Length 4C 5.56 cm MV A Geo311.00 msec LA Volume BP 41.30 ml MV [...] Wero Aceves MD 12/03/2024 1:14:27 PM CDT Patrick Rice DO CV ECHO PROCEDURES Final Re sult * POCT glucose (12/03/2024 8:13 AM CDT) [facility] Glucose, POC 159 70 - 199 mg/dL Comment:Testing performed by : [address] [address] Glucose comment 1 Will Repeat Test MARY JANE Comment:Testing performed by : [address] [address] Glucose comment 2 RN/MD Notified MARY JANE PHAM Comment:Testing performed by : [address] [address] Blood 12/03/2024 8:13 AM CDT 12/03/2024 8:13 AM CDT us Kenzie Jiménez MD LAB POCT ORDERABLES - DE VICE Final Result MARY JANE PHAM [address] [facility] Department of Laboratories [place], [place] [id number] * eGFR (12/03/2024 5:13 AM CDT) [facility] eGFR >90 >=60 mL/min/1. 73 m2 [...] was last reviewed 2021. Testing performed by: [address] [address] Blood 12/03/2024 5:13 AM CDT 12/03/2024 5:37 AM CDT us Santos Wallace MD LAB BLOOD ORDERABLES Final Res ult MARY JANE [address] [facility] Department [place] [address] * (ABNORMAL) CBC without differential (12/03/2024 5:13 AM CDT) [facility] WBC 10.70(H) 3.80 - 9.90 K/cumm Comment:Testing performed by : [address] [address] Hgb 12.1 11.9 - 15.5 g/dL MARY JANE PHAM Comment:Testing performed by : [address] [address] Hct 37.8 35.6 - 45.5 % MARY JANE PHAM Comment:Testing performed by : [address] [address] Plt 258 150 - 400 K/cumm MARY JANE PHAM Comment:Testing performed by : [address] [address] MPV 9.8 9.1 - 12.3 fL MARY JANE PHAM Comment:Testing performed by : [address] [address] RBC 4.15 3.90 - 5.20 M/cumm MARY JANE PHAM Comment:Testing performed by : [address] [address] MCV 91.1 81.3 - 96.4 fL MARY JANE Comment:Testing performed by : [address] [address] MCH 29.2 27.1 - 33.3 pg MARY JANE PHAM Comment:Testing performed by : [address] [address] MCHC 32.0(L) 32.3 - 35.7 g/dL MARY JANE Comment:Testing performed by : [address] [address] RDW CV 13.7 11.1 - 14.9 % MARY JANE Comment:Testing performed by : [address] [address] RDW SD 45.7 35.7 - 48.1 fL MARY AJNE PHAM Comment:Testing performed by : [address] [address] NRBC abs 0.00 0.00 - 0.01 K/cumm MARY JANE PHAM Comment:Testing performed by : [address] [address] Blood 12/03/2024 5:13 AM CDT 12/03/2024 5:42 AM CDT us Santos Wallace MD LAB BLOOD ORDERABLES Final Res ult MARY JANE [address] [facility] Department of Laboratories [place], [place] [id number] * Basic metabolic panel (12/03/2024 5:13 AM CDT) Sodium 139 135 - 145 mmol/L Comment:Testing performed by : [address], [place]., [address] Potassium, pl 3.8 3.3 - 4.9 mmol/L [facility] Comment:Testing performed by : [address], [place]., [address] Chloride 101 97 - 110 mmol/L [facility] Comment:Testing performed by : [address], [place]., [address] CO2 27 22 - 32 mmol/L [facility] Comment:Testing performed by : [address], [place]., [address] Anion gap 11 2 - 15 mmol/L [facility] Comment:Testing performed by : [address] [address] BUN 16 6 - 25 mg/dL [facility] Comment:Testing performed by : [address], [place]., [address] Creatinine 0.70 0.60 - 1.10 mg/dL [facility] Comment:Testing performed by : [address], [place]., [address] Glucose 170 70 - 199 mg/dL [facility] Comment: Interpretive Data Fasting glucose >/= [...] was last revised 2022. Testing performed by: [address] [address] Calcium 9.5 8.5 - 10.3 mg/dL MARY JANE Comment:Testing performed by : [address], [place]., [address] Blood 12/03/2024 5:13 AM CDT 12/03/2024 5:37 AM CDT us Santos Wallace MD LAB BLOOD ORDERABLES Final Res ult Performing Organization Address [facility] Co de Phone Number MARY JANE [address] [place] [employer] [address] * POCT glucose (12/02/2024 11:12 PM CDT) [facility] Glucose, POC 108 70 - 199 mg/dL Comment:Testing performed by : [address] [address] Glucose comment 1 RN/MD Notified MARY JANE Comment:Testing performed by : [address] [address] Blood 12/02/2024 11:1 2 PM CDT 12/02/2024 11:12 PM CDT us Santos Wallace MD LAB POCT ORDERABLES - DEVICE F inal Result Performing Organization Address [facility] Co de Phone Number MARY JANE [address] [place] [address] * (ABNORMAL) Troponin T high-sensitivity 6-hour (12/02/2024 10:06 PM CDT) [facility] Trop T hs 24(H) <=14 ng/L Comment: Interpretive Data For further hscTnT resources including the diagnostic algorithm and an aid in interpretation, copy and paste this link: https://nrl.testcatalog.org/show/hsTrop Current Interpretive Data last revised 2020. Testing performed by: [address] [address] Trop T hs delta -1 ng/L MARY JANE PHAM Comment:Testing performed by : [address] [address] Trop T hs interp Insignificant MARY JANE PHAM Comment:Testing performed by : [address] [address] Blood 12/02/2024 10:0 6 PM CDT 12/02/2024 10:08 PM CDT Gil Diez DO LAB BLOOD ORDERABLES Final Result Performing Organization Address [facility]/ZIP Co de Phone Number MARY JANE [address] [place] [address] * POCT glucose (12/02/2024 10:03 PM CDT) Glucose, POC 110 70 - 199 mg/dL Comment:Testing performed by : [address] [address] Blood 12/02/2024 10:0 3 PM CDT 12/02/2024 10:03 PM CDT Santos Wallace MD LAB POCT ORDERABLES - DEVICE F inal Result Performing Organization Address [facility] de Phone Number MARY JANE [address] [address] * (ABNORMAL) Troponin T high-sensitivity 4-hour (12/02/2024 8:26 PM CDT) Trop T hs 22(H) <=14 ng/L Comment: Interpretive Data For further hscTnT resources including the diagnostic algorithm and an aid in interpretation, copy and paste this link: https://nrl.testcatalog.org/show/hsTrop Current Interpretive Data last revised 2020. Testing performed by: [address] [address] Trop T hs delta -3 ng/L MARY JANE Comment:Testing performed by : [address] [address] Trop T hs interp Insignificant MARY JANE Comment:Testing performed by : [address] [address] Blood 12/02/2024 8:26 PM CDT 12/02/2024 8:31 PM CDT Gil Diez DO LAB BLOOD ORDERABLES Final Result MARY JANE MH [address] [facility] [place] [address] * CT Chest PE (CTA) W Contrast [...] Perfecto Arguello M.D. LB: LB Report ID: [id number] Reading Location: [id number] Procedure Note Perfecto Arguello MD - 12/02/2024 [...] lower lobe (image 60) are unchanged from 2021. Noncalcified 4 mm nodule in the medial [...] Perfecto Arguello M.D. LB: TAYLOR Report ID: [id number] Reading Location: [place] [address] Patrick Rice DO IMG CT PROCEDURES Final Res ult * Sepsis Lactate w/ Reflex (12/02/2024 6:19 PM CDT) [facility] Sepsis Lactate 1.2 0.7 - 2.0 mmol/L Comment:Testing performed by : [address] [address] Blood 12/02/2024 6:19 PM CDT 12/02/2024 6:22 PM CDT Patrick Rice DO LAB BLOOD ORDERABLES Final Result MARY JANE [address] [facility] Department [place] [address] * (ABNORMAL) Urinalysis reflex to microscopic and culture Urine (12/02/2024 6:19 PM CDT) Pathologist [facility] Color, ur Yellow Yellow Comment:Testing performed by : [address] [address] Clarity, ur Clear Clear MARY JANE Comment:Testing performed by : [address] [address] Specific gravity, ur 1.019 1.003 - 1.030 MARY JANE Comment:Testing performed by : [address] [address] pH, urine 7.0 MARY JANE Comment: Interpretive Data U rine pH is affected by diet, medications, systemic acid-base disturbances, and renal tubular function. pH may affect urinary stone formation. For example, urine pH below 6.0 may help reduce the tendency for calcium phosphate stones and pH greater than 6.0 may reduce the tendency for uric acid stone formation. Source: [facility] [employer] Current Interpretive Data was last revised on 2017 Testing performed by: [facility], [address] [place] [address], [place]., [address] Protein, ur ql Negative Negative MARY JANE Comment:Testing performed by : [address], [place]., [address] Glucose, ur ql 4+(A) Negative MARY JANE Comment:Testing performed by : [address], [place]., [address] Ketones, ur Negative Negative MARY JANE Comment:Testing performed by : [address], [place]., [address] Bilirubin, ur Negative Negative MARY JANE Comment:Testing performed by : [address], [place]., [address] Blood, ur Negative Negative MARY JANE Comment:Testing performed by : [address], [place]., [address] Urobilinogen, ur <2.0 <2.0 mg/dL MARY JANE Comment:Testing performed by : [address] [address] Nitrite, ur Negative Negative MARY JANE Comment:Testing performed by : [address], [place]., [address] Leukocyte esterase, ur Negative Negative MARY JANE Comment:Testing performed by : [address], [place]., [address] UA reflex comment Reflex conditions for microscopic UA and culture not met. MARY JANE Comment:Testing performed by : [address], [place]., [address] Urine 12/02/2024 6:19 PM CDT 12/02/2024 6:22 PM CDT Patrick Rice LAB MICROBIOLOGY - GENERAL ORDERABLES Final Result MARY JANE [address] [facility] Department [place] [address] * (ABNORMAL) Drugs of Abuse Screen, Urine without Confirmation (12/02/2024 6:19 PM CDT) [facility] Amphetamine, ur Not Detected CutOff 500ng/mL Comment: Interpretive Data - Amphetamines: Samples containing greater than 500 ng/mL d-methamphetamine or other cross-reacting amphetamine compounds are reported as positive. Amphetamine immunoassays are subject to significant false positive rates due to cross-reactivity of non-amphetamine drugs. Confirmatory testing required for definitive results. Current Interpretive Data was last reviewed 2022. Testing performed by: [address] [address] Barbiturates, ur Not Detected CutOff 200ng/mL MARY JANE Comment: Interpretive Data - Barbiturates: Samples containing greater than 200 ng/mL secobarbital or other cross-reacting barbiturate compounds are reported as positive. False positive and false negative results are possible. Confirmatory testing required for definitive results. Current Interpretive Data was last reviewed 2022. Testing performed by: [address] [address] Benzodiazepines, ur Not Detected CutOff 100ng/mL MARY JANE Comment: Interpretive Data - Benzodiazepines: Samples containing greater than 100 ng/mL nordiazepam or other cross-reacting compounds are reported as positive. False positive and false negative results are possible. Confirmatory testing required for definitive results. Current Interpretive Data was last reviewed 2022. Testing performed by: [address] [address] Cannabinoids, ur Not Detected CutOff 50 ng/mL MARY JANE Comment: Interpretive Data - Cannabinoids: Samples containing greater than 50 ng/mL delta-9 THC -COOH or other cross- reacting compounds are reported as positive. False positive and false negative results are possible. Confirmatory testing required for definitive results. Current Interpretive Data was last reviewed 2022. Testing performed by: [address] [address] Cocaine, ur Not Detected CutOff 150ng/mL [facility] Comment: Interpretive Data - Cocaine: Samples containing greater than 150 ng/mL benzoylecgonine or other cross- reacting compounds are reported as positive. False positive and false negative results are possible. Confirmatory testing required for definitive results. Current Interpretive Data was last reviewed 2022. Testing performed by: [address] [address] Fentanyl, Ur Not Detected Cutoff 1 ng/mL [facility] Comment: Interpretive Data - Fentanyl: Samples containing greater than 1 ng/mL fentanyl or other cross-reacting fentanyl compounds are reported as positive. False positive and false negative results are possible. Confirmatory testing required for definitive results. Current Interpretive Data was last reviewed 2022. Testing performed by: [address] [address] Methadone, ur Not Detected CutOff 300ng/mL [facility] Comment: Interpretive Data - Methadone: Samples containing greater than 300 ng/mL d,l-methadone or other cross-reacting compounds are reported as positive. False positive and false negative results are possible. Confirmatory testing required for definitive results. Current Interpretive Data was last reviewed 2022. Testing performed by: [address] [address] Opiates, ur Screen Positive, presumptive (A) CutOff 300ng/mL [facility] Comment: Interpretive Data - Opiates: Samples containing greater than 300 ng/mL morphine or other cross-reacting compounds are reported as positive. False positive and false negative results are possible. Confirmatory testing required for definitive results. Current Interpretive Data was last reviewed 2022. Testing performed by: [address] [address] Oxycodone, ur Not Detected CutOff 100ng/mL [facility] Comment: Interpretive Data - Oxycodone: Samples containing greater than 100 ng/mL oxycodone or other cross-reacting compounds are reported as positive. False positive and false negative results are possible. Confirmatory testing required for definitive results. Current Interpretive Data was last reviewed 2022. Testing performed by: [address] [address] Phencyclidine, ur Not Detected CutOff 25 ng/mL MARY JANE Comment: Interpretive Data - Phencyclidine: Samples containing greater than 25 ng/mL phencyclidine or other cross-reacting compounds are reported as positive. False positive and false negative results are possible. Confirmatory testing required for definitive results. Current Interpretive Data was last reviewed 2022. Testing performed by: [address] [address] Urine Creatinine 64 mg/dL MARY JANE Comment: Interpretive Data Urine Creatinine: < 10 mg/dL is extremely dilute = or > 10 but < 20 mg/dL is dilute = or > 20 mg/dL is normal Current Interpretive Data was last revised on 2017. Testing performed by: [address] [address] Urine 12/02/2024 6:19 PM CDT 12/02/2024 6:22 PM CDT Narrative [facility] - 12/02/2024 6:46 PM CDT Drug of Abuse screening is performed by immunoassay for medical purposes only. This is not to be used for Pain Management purposes. Patrick Rice DO LAB URINE ORDERABLES Final Result MARY JANE [address] [facility] [place] [address] * (ABNORMAL) D-dimer, quantitative (12/02/2024 [...] last revised on 2019. Testing performed by: [address] [address] Blood 12/02/2024 6:19 PM CDT 12/02/2024 6:22 PM CDT Patrick Saldana Rice DO LAB BLOOD ORDERABLES Final Result Performing Organization Address City/[facility] Co de Phone Number MARY JANE [address] [facility] [place] [address] * (ABNORMAL) Troponin T high-sensitivity 2-hour (12/02/2024 5:53 PM CDT) Pathologist [facility] [place] Trop T hs 23(H) <=14 ng/L Comment: Interpretive Data For further hscTnT resources including the diagnostic algorithm and an aid in interpretation, copy and paste this link: https://nrl.testcatalog.org/show/hsTrop Current Interpretive Data last revised 2020. Testing performed by: [address] [address] Trop T hs delta -2 ng/L MARY JANE Comment:Testing performed by : [address] [address] Trop T hs interp Insignificant MARY JANE Comment:Testing performed by : [address] [address] Blood 12/02/2024 5:53 PM CDT 12/02/2024 5:55 PM CDT Gil Diez DO LAB BLOOD ORDERABLES Final Result Performing Organization Address [facility] Co de Phone Number [facility] [address] [facility] [place] [address] * POCT glucose (12/02/2024 4:25 PM CDT) Glucose, POC 195 70 - 199 mg/dL Comment:Testing performed by : [address] [place] [address] Blood 12/02/2024 4:25 PM CDT 12/02/2024 4:25 PM CDT Notinfile Unknown LAB POCT ORDERABLES - DEVICE F inal Result Performing Organization Address [facility] de Phone Number MARY JANE [address] [address] * (ABNORMAL) Troponin T high-sensitivity series (baseline, 2hr, 4hr, 6hr) (12/02/2024 3:57 PM CDT) Trop T hs 25(H) <=14 ng/L Comment: Interpretive Data For further hscTnT resources including the diagnostic algorithm and an aid in interpretation, copy and paste this link: https://nrl.testcatalog.org/show/hsTrop Current Interpretive Data last revised 2020. Testing performed by: [address] [address] Blood 12/02/2024 3:57 PM CDT 12/02/2024 4:11 PM CDT Patrick Rice DO LAB BLOOD ORDERABLES Final Result Performing Organization Address [facility] de Phone Number [address] [address] * eGFR (12/02/2024 3:57 PM CDT) eGFR [...] was last reviewed 2021. Testing performed by: [address] [address] Blood 12/02/2024 3:57 PM CDT 12/02/2024 4:11 PM CDT Patrick Rice DO LAB BLOOD ORDERABLES Final Result MARY JANE [facility] [facility] [place] [address] * (ABNORMAL) Differential, auto (12/02/2024 3:57 PM CDT) Neutrophil abs 7.87(H) 1.50 - 6.50 K/cumm Comment:Testing performed by : [address] [address] Imm gran abs 0.05 0.00 - 0.10 K/cumm MARY JANE Comment:Testing performed by : [address] [address] Lymphocyte abs 1.99 0.80 - 3.30 K/cumm MARY JANE Comment:Testing performed by : [address] [address] Monocyte abs 0.54 0.20 - 0.80 K/cumm MARY JANE Comment:Testing performed by : [address] [address] Eosinophil abs 0.10 0.00 - 0.50 K/cumm MARY JANE Comment:Testing performed by : [address] [address] Basophil abs 0.03 0.00 - 0.10 K/cumm MARY JANE Comment:Testing performed by : [address] [address] Neutrophil pct 74.4 % [facility] Comment: Interpretive Data Percent cell count reference ranges are not reported, since discordance with absolute values may lead to misinterpretation of CBC data. Current Interpretive Data was last revised on 2017. Testing performed by: [address] [address] Imm gran pct 0.5 % [facility] Comment: Interpretive Data Percent cell count reference ranges are not reported, since discordance with absolute values may lead to misinterpretation of CBC data. Current Interpretive Data was last revised on 2017. Testing performed by: [address] [address] Lymphocyte pct 18.8 % [facility] Comment: Interpretive Data Percent cell count reference ranges are not reported, since discordance with absolute values may lead to misinterpretation of CBC data. Current Interpretive Data was last revised on 2017. Testing performed by: [address] [address] Monocyte pct 5.1 % [facility] Comment: Interpretive Data Percent cell count reference ranges are not reported, since discordance with absolute values may lead to misinterpretation of CBC data. Current Interpretive Data was last revised on 2017. Testing performed by: [address] [address] Eosinophil pct 0.9 % [facility] Comment: Interpretive Data Percent cell count reference ranges are not reported, since discordance with absolute values may lead to misinterpretation of CBC data. Current Interpretive Data was last revised on 2017. Testing performed by: [address] [address] Basophil pct 0.3 % [facility] Comment: Interpretive Data Percent cell count reference ranges are not reported, since discordance with absolute values may lead to misinterpretation of CBC data. Current Interpretive Data was last revised on 2017. Testing performed by: [address] [address] Blood 12/02/2024 3:57 PM CDT 12/02/2024 4:14 PM CDT Patrick Rice DO LAB BLOOD ORDERABLES Final Result MARY JANE [address] [facility] Department [place] [address] * Pro B-type natriuretic peptide [...] Revised Date: 2017. Testing performed by: [facility], [address] [place] [address]., [address] Blood 12/02/2024 3:57 PM CDT 12/02/2024 4:11 PM CDT Patrick Saldana Rice DO LAB BLOOD ORDERABLES Final Result MARY JANE [address] [facility] Department [place] [address] * (ABNORMAL) CBC with auto differential (12/02/2024 3:57 PM CDT) WBC 10.58(H) 3.80 - 9.90 K/cumm Comment:Testing performed by : [address] [address] Hgb 12.2 11.9 - 15.5 g/dL MARY JANE Comment:Testing performed by : [address] [address] Hct 37.6 35.6 - 45.5 % MARY JANE Comment:Testing performed by : [address] [address] Plt 263 150 - 400 K/cumm MARY JNAE Comment:Testing performed by : [address] [address] MPV 10.2 9.1 - 12.3 fL MARY JANE Comment:Testing performed by : [address] [address] RBC 4.19 3.90 - 5.20 M/cumm MARY JANE Comment:Testing performed by : [address] [address] MCV 89.7 81.3 - 96.4 fL MARY JANE Comment:Testing performed by : [address] [address] MCH 29.1 27.1 - 33.3 pg MARY JANE Comment:Testing performed by : [address] [address] MCHC 32.4 32.3 - 35.7 g/dL MARY JANE Comment:Testing performed by : [address] [address] RDW CV 13.7 11.1 - 14.9 % MARY JANE Comment:Testing performed by : [address] [address] RDW SD 45.0 35.7 - 48.1 fL MARY JANE Comment:Testing performed by : [address] [address] NRBC abs 0.00 0.00 - 0.01 K/cumm MARY JANE Comment:Testing performed by : [address] [address] Blood 12/02/2024 3:57 PM CDT 12/02/2024 4:14 PM CDT Patrick Les Rice LAB BLOOD ORDERABLES Final Result MARY JANE [address] [facility] Department [place] [address] * (ABNORMAL) Comprehensive metabolic panel (12/02/2024 3:57 PM CDT) Sodium 139 135 - 145 mmol/L Comment:Testing performed by : [address] [address] Potassium, pl 4.5 3.3 - 4.9 mmol/L MARY JANE Comment:Testing performed by : [address] [address] Chloride 101 97 - 110 mmol/L MARY JANE Comment:Testing performed by : [address] [address] CO2 26 22 - 32 mmol/L MARY JANE Comment:Testing performed by : [address] [address] Anion gap 12 2 - 15 mmol/L MARY JANE Comment:Testing performed by : [address] [address] BUN 17 6 - 25 mg/dL MARY JANE Comment:Testing performed by : [address] [address] Creatinine 0.60 0.60 - 1.10 mg/dL MARY JANE Comment:Testing performed by : [address] [address] Glucose 252(H) 70 - 199 mg/dL MARY [...] was last revised 2022. Testing performed by: [address] [address] Calcium 9.8 8.5 - 10.3 mg/dL MARY JANE Comment:Testing performed by : [address] [address] Bilirubin, total 0.5 0.1 - 1.2 mg/dL MARY JANE Comment:Testing performed by : [address] [address] Protein, pl 7.8 6.5 - 8.5 g/dL MARY JANE Comment:Testing performed by : [address] [address] Albumin 4.0 3.5 - 5.0 g/dL MARY JANE Comment:Testing performed by : [address] [address] Alk phos 79 40 - 130 Units/L MARY JANE Comment:Testing performed by : [address] [address] ALT 23 7 - 45 Units/L MARY JANE Comment:Testing performed by : [address] [address] AST 22 10 - 45 Units/L MARY JANE Comment:Testing performed by : [address] [address] Blood 12/02/2024 3:57 PM CDT 12/02/2024 4:11 PM CDT Patrick Rice DO LAB BLOOD ORDERABLES Final Result MARY JANE [address] [facility] [place] [address] * XR Chest 1 Vw Portable (If [...] Wilfrid Valdez M.D. MZ: MZ Report ID: [id number] Reading Location: [place] [address] Procedure Note Wilfrid Valdez MD - 12/02/2024 [...] Wilfrid Valdez M.D. MZ: MZ Report ID: [id number] Reading Location: [place] [address] Patrick Rice DO IMG XR PROCEDURES Final Res ult * ECG 12 lead (12/02/2024 3:33 PM CDT) Ventricular Rate EKG/Min 78 BPM [facility] Atrial Rate 78 BPM [facility] AK-Interval (MSEC) 122 ms [facility] QRS-Interval (MSEC) 82 ms [facility] QT-Interval (MSEC) 380 ms [facility] QTc 433 ms [facility] P [place] 7 degrees [facility] R [place] 3 degrees [facility] T [place] 11 degrees [facility] Diagnosis Normal sinus rhythm Normal ECG When compared with ECG of 01-JUL-2024 14:05, No significant change Confirmed by SULTAN MARTINEZ M.D. ([id number]) on 12/03/2024 4:50:33 PM [facility] 12/02/2024 3:33 PM CDT 12/03/2024 4:50 PM CDT Patrick Rice DO ECG ORDERABLES Final Resul t [facility] * Cardiology Document Scan (11/19/2024 11:45 AM [...] Bone mineral density was performed on a Hologic Discovery Densitometer. Based on machine cross-calibration and [...] by the International Society of Clinical Densitometry. [id number] us Khris Arthur MD IMG DXA PROCEDURES [...] agrees with it. ACC# Date Time Exam [id number] Aug 19, 2016 14:27:00 [facility] [address] Diag Mamm, inc CAD, unilat L Technologist(s): Carla Harris; ; [id number] Aug 19, 2016 15:39:00 [facility] [address] Breast US unilateral, ltd L ACC# Date Time Exam [id number] Aug 19, 2016 14:27:00 [facility] [address] Diag Mamm, inc CAD, unilat L Technologist(s): Carla Harris; ; [id number] Aug 19, 2016 15:39:00 [facility] [address] Breast US unilateral, ltd L EXAMINATION: LEFT [...] SARABIA M.D. on Aug 19 2016 4:20P [id number] Procedure Note Miscellaneous, Not In File / Provider, MD Tyler - 09/17/2016 ANTHONY SARABIA M.D. JUDY RINCON M.D. FINAL REPORT The radiology attending physician has personally reviewed this study, and has reviewed and/or edited this written report and agrees with it. ACC# Date Time Exam [id number] Aug 19, 2016 14:27:00 [facility] [address] Diag Mamm, inc CAD, unilat L Technologist(s): Carla Harris; ; [id number] Aug 19, 2016 15:39:00 [facility] [address] Breast US unilateral, ltd L ACC# Date Time Exam [id number] Aug 19, 2016 14:27:00 C [address]3415 Diag Mamm, inc CAD, unilat L Technologist(s): Carla Harris; ; [id number] Aug 19, 2016 15:39:00 C 16770 Breast US unilateral, ltd L EXAMINATION: LEFT [...] SARABIA M.D. on Aug 19 2016 4:20P [id number] us Not In File Miscellaneous IMG MAMMO PROCEDURES F inal Result from Last 3 Months or Most Recently Relevant to Health Maintenance Insurance IDPA [facility] MEDICARE ADVANTAGE [facility] MEDICARE ADVANTAGE IDMO [facility] MEDICARE ADVANTAGE Advance Directives For more information, please contact: [phone] Documents on File Type Date Recorded Patient Cured Meats Supervisor Expl anation ADVANCE DIRECTIVE 12/23/2021 2:49 PM Power of Executive Community Planning-Medical ADVANCE DIRECTIVE 12/23/2021 2:49 PM Living Will [...] Agents on File Name Relationship Healthcare Agent [facility] p Communication Yunior Marques Daughter Health Care Agent Jimmie Marques Spouse First Alternate Health Care Agent Care Teams Spray Gun Repairer Helper Relationship Specialty Start Date End Date Justen Gale MD [address] [address] PCP - General 10/09/17 Liu Jerez MD Consulting Physician Gastroenterology 07/28/17 [place] [address] [facility] [address] [place] [address] Consulting Physician Pulmonary Disease 08/03/17 Khris Arthur MD [address] [facility] [address] [place] [address] Medical Oncologist/Dental Laboratory Worker Medical Oncology 10/23/17 [place] [address] [facility] [address] [place] [address] Surgeon Orthopedic Surgery 10/23/17 [place] [address] [facility] [address] [place] [address] Consulting Physician Pain Management 10/23/17 [place] [address] [facility] [address] [place] [address] Referring Physician General Surgery 01/26/18 [place] [address] [facility] [address] [place] [address] Consulting Physician Neurology 01/26/18
--- OUTSIDE RECORDS SUMMARY | 2025-02-03 14:18 | XMS_ITS | Encounter Summary ---
Author Organization [facility] Address [address] [place] [address] Phone Care Team Providers Care Medical Billing Service Name Role Phone Justen Gale MD Primary Care Provider [phone] David Roberts APRN, MANAGER FIRE Unavailable [phone] Annel Rod MD Unavailable Reason for Visit * Reason Comments Medication Refill Encounter Details Date Type Department Care Team (Late st Contact Info) Description 02/07/2023 Refill [facility] #2 [place] [address] Pili Elkins, ZAMZAM, MANAGER FIRE #[address] [address] Medication Refill Social History Tobacco [...] Care Team (Late st Contact Info) Description 03/19/2025 2:00 PM TICKET PRINTER Office Visit [facility] - Endocrinology - [place] #2 [place] [address] Annel Rod MD #[address] [address] 05/29/2025 1:30 PM TICKET PRINTER Office Visit [facility] - Family Medicine [facility] [address]2 [place] [address] Justen Gale MD #2 [facility] [address] [place] [address] documented as of this encounter Visit Diagnoses [...] as of this encounter Care Teams Medical Billing Service Relationship Specialty Start Date End Date Justen Gale MD #2 [facility] [address] [place] [address] PCP - General Family Medicine 10/17/17 David Roberts APRN, MANAGER FIRE [address]2 [place] [address] Nurse Practitioner Advanced Practice Nurse 01/31/22 Annel Rod MD #2 [facility] [address] [place] [address] Consulting Physician Endocrinology 07/01/22 documented as of this encounter
--- OUTSIDE RECORDS SUMMARY | 2025-02-03 14:18 | XMS_ITS | Encounter Summary ---
Author Organization [facility] Address [address] [place] [address] Phone Care Team Providers Care Thermal Surfacing Machine Operator Name Role Phone Justen Gale MD Primary Care Provider [phone] David Roberts APRN, LOT PORTER Unavailable [phone] Annel Rod MD Unavailable Reason for Visit * Reason Onset Date Comments Pain 09/23/2024 Encounter Details Date Type Department Care Team (Late st Contact Info) Description 09/23/2024 Telephone [facility] [address] [place] [address] Justen Gale MD #[address] [address] Pain Social History Tobacco Use Types Packs/Day Years Used Date Smoking Tobacco: Never Smokeless Tobacco: Never Alcohol Use Standard Drinks/Week Comments No 0 (1 standard drink = 0.6 oz pur e alcohol) [facility] Utilities Answer Date Recorded In the past 12 months has [employer] electric, gas, oil, or water company [...] - patient has RA Outcome: Transfer to gardening instructor queue Reason: Caller denied all higher acuity questions The caller accepted this outcome. Caller Denied: * Chest pain * Headache * Eye pain * Abdominal pain * Genital pain documented in this encounter Plan of Treatment Upcoming Encounters Date Type Department Care Team (Late st Contact Info) Description 03/19/2025 2:00 PM ETHANOL OPERATOR Office Visit [facility] Medical [facility] - Endocrinology - [place] [address] [place] [address] Annel Rod MD #[address] [place] [address] [place] [address] 05/29/2025 1:30 PM ETHANOL OPERATOR Office Visit [facility] - Family Medicine - [place] [address] [place] [address] Justen Gale MD #2 [place] [address] [place] [address] documented as of this encounter Visit Diagnoses Not on filedocumented in this encounter Additional Health Concerns Infection Onset Date Last Indicated Resolved Time Respiratory Rule-Out 11/18/2024 11/18/2024 025 7:18 AM CDT Assessment Noted Time PHQ-9 Depression Total Score: 0 08/02/19 25 1:09 PM CDT documented as of this encounter Care Teams Thermal Surfacing Machine Operator Relationship Specialty Start Date End Date Justen Gale MD #[address] [place] [address] [place] [address] PCP - General Family Medicine 10/17/17 David Roberts APRN, NETTA [address] [place] [address] Nurse Practitioner Advanced Practice Nurse 01/31/22 Annel Rod MD #[address] [place] [address] [place] [address] Consulting Physician Endocrinology 07/01/22 documented as of this encounter
--- OUTSIDE RECORDS SUMMARY | 2025-02-03 14:18 | XMS_ITS | Encounter Summary ---
Author Organization [facility] Address [address] [place] [address] Phone Care Team Providers Care Drafting Supervisor Name Role Phone Justen Gale MD Primary Care Provider [phone] David Roberts APRN, AERODYNAMICIST Unavailable [phone] Annel Rod MD Unavailable Reason for Visit * Reason Comments Medication Refill Encounter Details Date Type Department Care Team (Late st Contact Info) Description 02/07/2023 Refill [facility] - Family [facility] #2 [place] [address] Catrina Quiñ[place] [address] [place] [address] Medication Refill Social History Tobacco Use Types [...] Visit Catrina Quiñonez MD [facility] [place] 09/16/22 Office Visit Pili Elkins APRN, NETTA [facility] 07/05/22 Office Visit Pili Elkins APRN, NETTA [facility] [place] 05/02/22 Office Visit Justen Gale MD [facility] 03/03/22 Office Visit Pili Elkins APRN, NETTA [facility] [place] Showing recent visits within past 365 days and meeting all other requirements Future Appointments No visits were found meeting these conditions. Showing future appointments within next 90 days and meeting all other requirements documented in this encounter Plan of Treatment Upcoming Encounters Date Type Department Care Team (Late st Contact Info) Description 03/19/2025 2:00 PM WASTEWATER PLANT OPERATOR Office Visit [facility] - Endocrinology - [place] [address] [facility] [place] [address] Annel Rod MD #[address] [address] 05/29/2025 1:30 PM WASTEWATER PLANT OPERATOR Office Visit [facility] #[address] [place] [address] Justen Gale MD #[address] [address] documented as of this encounter Visit Diagnoses Not on filedocumented in this encounter Additional Health Concerns Infection Onset Date Last Indicated Resolved Time COVID - 19 08/01/2024 08/01/2024 08/01/2024 3:20 PM CDT Respiratory Rule-Out 11/18/2024 11/18/2024 025 7:18 AM CDT Assessment Noted Time PHQ-9 Depression Total Score: 8 01/18/20 23 2:24 PM CDT documented as of this encounter Care Teams Drafting Supervisor Relationship Specialty Start Date End Date Justen Gale MD #[address] [address] PCP - General Family Medicine 10/17/17 David Roberts APRN, AERODYNAMICIST [address] [place] [address] Nurse Practitioner Advanced Practice Nurse 01/31/22 Annel Rod MD #[address] [place] [address] Consulting Physician Endocrinology 07/01/22 documented as of this encounter
--- OUTSIDE RECORDS SUMMARY | 2025-02-03 14:18 | XMS_ITS | Encounter Summary ---
Author Organization [facility] Address [address] [place] [address] Phone Care Team Providers Care Optical Mechanic Name Role Phone Justne Gale MD Primary Care Provider [phone] David Roberts APRN, LOGISTICS LEAD Unavailable [phone] Annel Rod MD Unavailable Reason for Visit * Reason Comments Medication Refill Encounter Details Date Type Department Care Team (Late st Contact Info) Description 02/17/2021 Refill [facility] - Family [facility] #2 [place] [phone] Justen Gale MD #[address] [address] Medication Refill Social History Tobacco Use Types [...] [place] 06/05/20 Office Visit Pili Elkins APRN, LOGISTICS LEAD [facility] Showing recent visits within past 365 days and meeting all other requirements Future Appointments Date Type Provider Dept 03/02/21 Appointment Vince Hermosillo MD [facility] Showing future appointments within next 90 days and meeting all other requirements documented in this encounter Plan of Treatment Upcoming Encounters Date Type Department Care Team (Late st Contact Info) Description 03/19/2025 2:00 PM SPRING FORMER Office Visit [facility] - Endocrinology [facility] #2 [place] [address] Annel Rod MD #2 [facility] [address] [place] [address] 05/29/2025 1:30 PM SPRING FORMER Office Visit [facility] Family Medicine [facility] #2 [place] [address] Justen Gale MD #2 [facility] [address] [place] [address] documented as of this encounter Visit Diagnoses Not on filedocumented in this encounter Additional Health Concerns Infection Onset Date Last Indicated Resolved Time COVID - 19 08/01/2024 08/01/2024 08/01/2024 3:20 PM CDT Respiratory Rule-Out 11/18/2024 11/18/2024 025 7:18 AM CDT Assessment Noted Time PHQ-9 Depression Total Score: 0 07/21/19 21 3:00 PM CDT documented as of this encounter Care Teams Optical Mechanic Relationship Specialty Start Date End Date Justen Gale MD #[address] [place] [address] PCP - General Family Medicine 10/17/17 David Roberts, BUSINESS ACCOUNT MANAGER, LOGISTICS LEAD #2 [facility] [place] [address] Nurse Practitioner Advanced Practice Nurse 01/31/22 Annel Rod MD #[address] [address] Consulting Physician Endocrinology 07/01/22 documented as of this encounter
--- OUTSIDE RECORDS SUMMARY | 2025-02-03 14:18 | XMS_ITS ---
Author Organization [facility] Address [address] [place] [address] Care Team Providers Care Supervisor Sandblaster Name Role Phone Justen Gale MD Primary Care Provider [phone] Active Problems Problem Noted Date Diagnosed Date Acute heart failure with pre served ejection fraction (HFpEF) 01/31/2025 Edema, unspecified type 01/30/2025 SOB (shortness of breath) 01/30/2025 Sore throat 01/30/2025 Shortness of breath 01/02/2025 Myalgia 01/02/2025 Elevated troponin 01/02/2025 Pneumonia of both lower lobes due to infectious organism 01/02/2025 CHF (congestive heart failure) 01/02/2025 Polymyositis 01/02/2025 Lumbar back pain 07/26/2023 Chronic left-sided low [...] wound, post-operative 02/21/2023 Intractable chronic post-traumatic headache 09/06/2022 Right hand weakness 12/25/2022 Acute intractable headache, [...] Type 2 diabetes mellitus without complication Overview (01/22/2025): Last Assessment & Plan: Hold janument. Start on SSI and accucheks Last Assessment & Plan: Hold janument. Start on SSI and accucheks Last Assessment & Plan: Chronic. Controlled. -continue home insulin regimen of lantus 50 units q am -lispro 20 units with breakfast and lunch. 22 units with dinner. IMO 01/22/2025 LUL (obstructive sleep apnea) 08/01/2017 Overview (10/04/2021): Last Assessment & Plan: Chronic, on CPAP at home - Continue home CPAP Neuropathy 07/05/2017 GERD (gastroesophageal reflux disease) Current Treatment and Therapy Plans No current plan information found. Past Treatment and Therapy Plans No past plan information found. Lifetime Dose Tracking * Chemical Lifetime Dose Automatic Entry Manual Entr y Dose Length Product 1,838 mGy-cm 1,838 mGy-cm 0 mGy-cm Resolved Problems Problem Noted Date Diagnosed Date Resolved Date Rash 03/21/2023 04/18/2023
--- OUTSIDE RECORDS SUMMARY | 2025-02-03 14:18 | XMS_ITS | Encounter Summary ---
Author Organization [facility] Address [address] [place] [address] Phone Care Team Providers Care National Sales Name Role Phone Justen Gale MD Primary Care Provider [phone] David Roberts APRN, FIELD MAP TECHNICIAN Unavailable [phone] Annel Rod MD Unavailable Reason for Visit * Reason Onset Date Comments Sore Throat 09/02/2024 Encounter Details Date Type Department Care Team (Late st Contact Info) Description 09/02/2024 Nurse Triage [facility] [address] [place] [address] Justen Gale MD [address] [address] Sore Throat Social History Tobacco Use Types [...] Total Score - Questions 1-9 0 07/23 [employer] [facility] [employer] - Occupational Stress [...] Pharmacy, medications, and allergies reviewed. Discussed utilizing Access Intelligence to: discuss if they would prefer a Access Intelligence message or phone call response - See [...] Ulcers - Caller Reports Outcome: Transfer to claims coordinator queue Reason: Caller denied all higher acuity questions The caller accepted this outcome. Caller Denied: * Struggling for each breath (severe trouble breathing) * Can't swallow saliva (drooling) documented in this encounter Plan of Treatment Upcoming Encounters Date Type Department Care Team (Late st Contact Info) Description 03/19/2025 2:00 PM SHERIFFS OFFICER Office Visit [facility] Endocrinology [facility] [address] [place] [address] Annel Rod MD [address] [address] 05/29/2025 1:30 PM SHERIFFS OFFICER [facility] [address] [place] [address] Justen Gale MD [address] [address] documented as of this encounter Visit Diagnoses Not on filedocumented in this encounter Additional Health Concerns Infection Onset Date Last Indicated Resolved Time Respiratory Rule-Out 11/18/2024 11/18/2024 025 7:18 AM CDT Assessment Noted Time PHQ-9 Depression Total Score: 0 08/02/19 25 1:09 PM CDT documented as of this encounter Care Teams National Sales Relationship Specialty Start Date End Date Justen Gale MD [address] [address] PCP - General Family Medicine 10/17/17 David Roberts, KENNEL TECHNICIAN, FIELD MAP TECHNICIAN [address] [place] [address] Nurse Practitioner Advanced Practice Nurse 01/31/22 Annel Rod MD [address] [address] Consulting Physician Endocrinology 07/01/22 documented as of this encounter
--- OUTSIDE RECORDS SUMMARY | 2025-02-03 14:18 | XMS_ITS | Encounter Summary ---
Author Organization [facility] Address [address] [place] [address] Phone Care Team Providers Care Care Attendant Name Role Phone Justen Gale MD Primary Care Provider [phone] David Roberts APRN, STAFF AUDITOR Unavailable [phone] Annel Rod MD Unavailable Reason for Visit * Reason Comments Medication Refill Encounter Details Date Type Department Care Team (Late st Contact Info) Description 07/12/2022 Refill [facility] - Family Medicine [facility] [address] [place] [phone] Justen Gale MD #[address] [address] Medication Refill Social History Tobacco Use Types [...] [place] 03/03/22 Office Visit Pili Elkins APRN, STAFF AUDITOR [facility] [place] 01/03/22 Office Visit Dannielle Berg PAC [facility] [place] 12/07/21 Office Visit Pili Elkins APRN, NETTA [facility] [place] 11/09/21 Office Visit Pili Elkins APRN, NETTA [facility] [place] 10/08/21 Office Visit Angelito lAegria APRN, NETTA [facility] [place] 08/30/21 Office Visit Justen Gale MD [facility] Showing recent visits within past 365 days and meeting all other requirements Future Appointments No visits were found meeting these conditions. Showing future appointments within next 90 days and meeting all other requirements documented in this encounter Plan of Treatment Upcoming Encounters Date Type Department Care Team (Late st Contact Info) Description 03/19/2025 2:00 PM NEWS CAMERA OPERATOR Office Visit [facility] Endocrinology [facility] [address] [place] [address] Annel Rod MD #[address] [address] 05/29/2025 1:30 PM NEWS CAMERA OPERATOR Office Visit [facility] Family Medicine [facility] [address] [place] [address] Justen Gale MD #[address] [address] documented as of this encounter Visit Diagnoses Not on filedocumented in this encounter Additional Health Concerns Infection Onset Date Last Indicated Resolved Time COVID - 19 08/01/2024 08/01/2024 08/01/2024 3:20 PM CDT Respiratory Rule-Out 11/18/2024 11/18/2024 025 7:18 AM CDT Assessment Noted Time PHQ-9 Depression Total Score: 0 07/21/19 21 3:00 PM CDT documented as of this encounter Care Teams Care Attendant Relationship Specialty Start Date End Date Justen Gale MD #[address] [address] PCP - General Family Medicine 10/17/17 David Roberts, ACTUARIAL ASSOCIATE, STAFF AUDITOR [address] [place] [address] Nurse Practitioner Advanced Practice Nurse 01/31/22 Annel Rod MD #[address] [place] [address] Consulting Physician Endocrinology 07/01/22 documented as of this encounter
--- OUTSIDE RECORDS SUMMARY | 2025-02-03 14:18 | XMS_ITS | Encounter Summary ---
Author Organization [facility] Address [address] [place] [address] Phone Care Team Providers Care Overage Shortage And Damage Clerk Name Role Phone Justen Gale MD Primary Care Provider [phone] David Roberts APRN, WELD TECHNICIAN Unavailable [phone] Annel Rod MD Unavailable Reason for Visit * Reason Onset Date Comments Medication Refill 08/06/2020 Encounter Details Date Type Department Care Team (Late st Contact Info) Description 08/06/2020 Refill [facility] - [facility] [place] [phone] Justen Gale MD #[address] [address] Medication Refill Social History Tobacco Use Types [...] Outpatient Visits 2 weeks ago [facility] Pili Mueller APN, WELD TECHNICIAN 2 months ago Increased urinary frequency [facility] Pili Mueller APN, WELD TECHNICIAN 5 months ago Urinary frequency [facility] Pili Mueller APN, WELD TECHNICIAN 8 months ago Type 2 diabetes mellitus with diabetic polyneuropathy, with long- term current use of insulin (HCC) [facility] Pili Mueller APN, WELD TECHNICIAN 9 months ago Nausea [facility] Justen Urbano MD Upcoming Appointments Future Appointments In 6 days Pili Elkins APN, WELD TECHNICIAN [facility] ESTHETIC[facility]/SKIN THERAPIST - Recent and Past Visits Recent Visits Date Type Provider Dept 07/20/20 Office Visit Pili Elkins APN, WELD TECHNICIAN [facility] 06/05/20 Office Visit Pili Elkins APN, NETTA [facility] 02/17/20 Office Visit Pili Elkins APN, NETTA [facility] 12/03/19 Office Visit Pili Elkins APN, NETTA [facility] 11/05/19 Telemedicine Justen Gale MD [facility] 07/25/19 Telemedicine [facility] recent visits within past 460 days with a meds authorizing provider and meeting all other requirements Future Appointments Date Type Provider Dept 08/12/20 Appointment Pili Elkins APN, NETTA [facility] Showing future appointments within next 90 days [...] st Contact Info) Description 03/19/2025 2:00 PM BACK ORDER CLERK Office Visit [facility] - Endocrinology - [place] [address] [place] [address] Annel Rod MD [address] [address] 05/29/2025 1:30 PM BACK ORDER CLERK Office Visit [facility] - Family Medicine - [place] [address] [place] [address] Justen Gale MD #2 [facility] [address] [place] [address] documented as of this encounter Visit Diagnoses Not on filedocumented in this encounter Additional Health Concerns Infection Onset Date Last Indicated Resolved Time COVID - 19 08/01/2024 08/01/2024 08/01/2024 3:20 PM CDT Respiratory Rule-Out 11/18/2024 11/18/2024 025 7:18 AM CDT Assessment Noted Time PHQ-9 Depression Total Score: 0 07/21/19 21 3:00 PM CDT documented as of this encounter Care Teams Overage Shortage And Damage Clerk Relationship Specialty Start Date End Date Justen Gale MD #[address] [address] PCP - General Family Medicine 10/17/17 David Roberts APRN, WELD TECHNICIAN [address] [place] [address] Nurse Practitioner Advanced Practice Nurse 01/31/22 Annel Rod MD #[address] [address] Consulting Physician Endocrinology 07/01/22 documented as of this encounter
--- OUTSIDE RECORDS SUMMARY | 2025-02-03 14:18 | XMS_ITS | Clinical Summary ---
Author Organization [facility] Address [address] [place] [address] Phone Care Team Providers Care Medical Genetics Director Name Role Phone Justen Gale MD Primary Care Provider [phone] David Roberts APRN, [employer] PRODUCT CONSULTANT Unavailable [phone] Annel Rod MD Unavailable Allergies Active Allergy [...] mouth daily. Active Blood Glucose Monitoring Suppl DeviceIndicat ions:Type 2 diabetes mellitus with complication, without long-term current use of insulin Diagnosis: Diabetes Type 2 Blood testing frequency: 4 times a day 1 Each 11/22/19 18 Active Glucose Blood (ONE TOUCH ULTRA TEST) Strip Test four times daily. 400 Strip 3 02/11/20 20 Active Misc. Devices MiscIndicatio ns:LUL (obstructive sleep apnea) Supply and instructions: 1 Each 09/10/19 21 Active OneTouch Delica Lancets 33G [facility] 1 Lancet by Does not apply route 4 times daily. 400 Lancet 3 03/09/20 21 Active naloxone HCl (Narcan) 4 MG/0.1ML Liquid 05/13/19 22 Active diphenhydrAMI NE (BENADRYL) 25 MG Capsule Take 25 mg [...] 300 mg by mouth. 06/20/19 24 Active HYDROcodone-a cetaminophen (NORCO) 10-325 MG Tablet Take 1 Tablet by mouth. 12/28/19 24 Active Multiple Vitamins-Mine rals (WOMENS MULTI PO) Take by mouth. Activ e Calcium Citrate-Vitam in D (CALCIUM + D PO) Take by mouth. Activ e rOPINIROLE (REQUIP) 5 MG Tablet Take 1 Tablet by mouth nightly. 90 Tablet 2 04/25/19 25 Active Continuous Glucose Sensor (FreeStyle Eileen 2 Sensor) Misc 1 Each by Does not apply route every 14 days. Change sensor every 14 days. E11.42, insulin dependent 6 Each 1 04/25/19 25 Active insulin glargine (Lantus SoloStar) 100 UNIT/ML Solution Pen-injector 50 Units by Subcutaneous route every morning. 45 mL 1 10/18/19 25 Active Insulin Pen Needle (BD Pen Needle Short Ultrafine) 31G X 8 MM Misc USE 6 TIMES A DAY DIRECTED 300 Pen Needle 3 11/22/19 25 Active furosemide (LASIX) 20 MG Tablet Take 20 mg by mouth daily. 11/20/19 25 Active amoxicillin-c lavulanate (AUGMENTIN) 875-125 MG Tablet Take 1 Tablet by mouth 2 times daily. 11/20/19 25 Active pantoprazole (PROTONIX) 40 MG Tablet Delayed Response Take 40 mg by mouth daily. Active spironolacton e (ALDACTONE) 25 MG Tablet Take 25 mg by mouth daily. Active predniSONE (DELTASONE) 5 MG TabletIndicat ions:Polymyal sharee rheumatica Take 1.5 Tablets by mouth daily. 45 Tablet 01/01/20 25 Active ondansetron (Zofran) 4 MG Tablet Take 1 Tablet by mouth every 8 hours as needed for Nausea - 1st line. 15 Tablet 01/01/20 25 Active HumaLOG KwikPen 100 UNIT/ML Solution Pen-injector INJECT 36 UNITS UNDER SKIN BEFORE EACH MEAL.; ISF OF 1:15 OF IF>150MG/DL; MAX DAILY DOSE OF 120 UNITS 120 mL 1 01/09/20 25 Active oxybutynin (DITROPAN-XL) 10 MG TABLET SR 24 HRIndications :OAB (overactive bladder) TAKE 1 TABLET BY MOUTH DAILY 30 Tablet 1 01/19/20 25 Active Continuous Glucose Sensor (FreeStyle Eileen 2 Sensor) Misc 1 Each by Does not apply route every 14 days. 6 Each 1 01/24/20 25 Active methotrexate 2.5 MG Tablet Take 15 mg by mouth once a week 01/09/20 25 025 Active empagliflozin (JARDIANCE) 10 MG Tablet Take 10 mg by mouth daily. 01/08/20 Active aspirin 81 MG Chewable Tablet Take 81 mg by mouth daily. 01/08/20 Active atorvastatin (LIPITOR) 40 MG Tablet Take 40 mg by mouth nightly. 01/07/20 Active folic acid (FOLVITE) 1 MG Tablet Take 1 mg by mouth. 01/09/20 026 Active valsartan (DIOVAN) 80 MG Tablet Take 80 mg by mouth daily. Active HumaLOG KwikPen 100 UNIT/ML Solution Pen-injector INJECT 28 UNITS UNDER SKIN BEFORE EACH MEAL.; ISF OF 1:15 OF IF>150MG/DL; MAX DAILY DOSE OF 100 UNITS 90 mL 08/06/19 025 Discontinued(R eorder) Continuous Glucose Sensor (FreeStyle Eileen 2 Sensor) Misc 1 Each by Does not apply route every 14 days. 6 Each 1 11/22/19 25 025 Discontinued(R eorder) oxybutynin (DITROPAN-XL) 10 MG TABLET SR 24 HRIndications :OAB (overactive bladder) Take 1 Tablet by mouth daily. 30 Tablet 1 11/26/19 25 025 Discontinued Active Problems Problem Noted Date Diagnosed Date [...] Overview: Added automatically from request for surgery [id number] Lymphedema of left upper extremity 08/09/2016 Pulmonary embolism 08/09/2016 Overview (11/09/2017): Last Assessment & Plan: On Rivaroxaban Arthralgia of ankle 01/26/2015 Resolved Problems Problem Noted Date Diagnosed Date Resolved Date Cellulitis of breast 11/11/2014 025 Encounters Date Type Department Care Team Description 01/29/2025 Nurse Triage [facility] [address] [place] [address] Justen Gale MD Facial Swelling 01/23/2025 MyChart RX Renewal [facility] - [place] [address] [place] [address] Annel Rod MD Medication Renewal Reviewed 01/18/2025 Refill [facility] [address] [place] [address] Pili Elkins APRN, SEPH[employer]A PRODUCT CONSULTANT Medication Refill 01/08/2025 Nurse Triage [facility] Central Call [address] [address] Justen Gale MD High Blood Sugar (Under Dr Rod, not Dr Gale) 01/08/2025 MyChart RX Renewal [facility] [address] [place] [phone] Annel Rod MD Medication Renewal Reviewed 12/30/2024 MyChart RX Renewal [facility] [address] [place] [phone] Justen Gale MD Medication Renewal Reviewed 12/30/2024 MyChart RX Renewal [facility] [address] [place] [phone] Pili Elkins APRN, SEPH[employer]A PRODUCT CONSULTANT Medication Renewal Reviewed 12/24/[address] [address] Justen Gale MD Advice Only; Results 12/19/2024 Telephone [facility] [address] [place] [address] Justen Gale MD 12/18/[address] [phone] Justen Gale MD Results 12/17/2024 3:30 PM CDT Office Visit [facility] [address] [place] [phone] Annel Rod MD Type 2 diabetes mellitus [...] - 12/17/2024 11:59 PM CDT [facility] [address] [place] [phone] Justen Gale MD Discharge Disposition: Discharged to home or Selfcare 12/17/2024 Travel 12/14/2024 Nurse Triage [facility] Central Call Center [address] [place] [phone] Justen Gale MD Nausea; Shortness of Breath; Dizziness; Generalized Weakness 12/14/2024 Telephone [facility] Call Center [address] [place] [phone] Justen Gale MD Advice Only 12/06/2024 Telephone [facility] Call Center [address] [place] [phone] Justen Gale MD Post-Hospital Follow-up 11/25/2024 10:00 AM CDT Office Visit [facility] [address] [place] [phone] Pili Elkins, BAG MAKING MACHINE OPERATOR, SEPH[employer]A PRODUCT CONSULTANT Acute diastolic congestive heart failure (HCC) (Primary Dx); Type 2 diabetes mellitus with diabetic polyneuropathy, with long-term current use of insulin (HCC); OAB (overactive bladder); Polymyalgia rheumatica (HCC) Discharge Disposition: Discharged to home or Selfcare 11/25/2024 Travel 11/21/2024 Nurse Triage [facility] Call [facility] [address] [place] [phone] Justen Gale MD Advice Only; Urinary Frequency 11/21/2024 MyChart RX Renewal [facility] [address] [place] [phone] Annel Rod MD Medication Renewal Reviewed 11/21/2024 MyChart RX Renewal [facility] [address] [place] [phone] Justen Gale MD Medication Renewal Declined 11/21/2024 MyChart RX Renewal [facility] [address] [place] [address] Pili Elkins APRN, SEPHORA PRODUCT CONSULTANT Medication Renewal Reviewed 11/20/2024 Nurse Triage [facility] Call Center [address] [place] [phone] Justen Gale MD Shortness of Breath 11/20/2024 Telephone [facility] Call Center [address] [place] [phone] Justen Gale MD Post-Hospital Follow-up ([facility]) 11/14/2024 Telephone [facility] Call Center [address] [place] [phone] Justen Gale MD Follow-up 11/14/2024 Telephone [facility] [address] [place] [phone] Justen Gale MD 11/07/2024 Nurse Triage [facility] Center [address] [place] [phone] Justen Gale MD Advice Only; Fatigue; Shortness of Breath 11/06/2024 MyChart RX Renewal [facility] [address] [place] [address] Justen Gale MD Medication Renewal Declined 11/05/2024 Refill [facility] [address] [place] [phone] Justen Gale MD Medication Refill from Last 3 Months Immunizations Immunization Administration Dates Next Due Covid-19 Vaccine, Vector-nr, Rs-ad26, Pf, 0.5 Ml ([employer]) 06/29/2020 Influenza Vaccine greater than 3 yrs [...] Recorded In the past 12 months has [employer], gas, oil, or water [employer] threatened to shut off services in your [...] often do you attend chur ch or evangelical services? More than 4 times per year [...] Total Score - Questions 1-9 0 07/23 [facility] - Occupational Stress [...] in a penitentiary (including now)? No 08/06/2024 AUDIT-C Answer Date [...] st Contact Info) Description 03/19/2025 2:00 PM VOTATOR MACHINE OPERATOR Office Visit [facility] - Endocrinology [facility] [address] [place] [phone] Annel Rod MD [address]2 [facility] [address] [place] [address] 05/29/2025 1:30 PM VOTATOR MACHINE OPERATOR Office Visit [facility] - Family Medicine [facility] [address] [place] [address] Justen Gale MD #2 [facility] [address] [place] [address] Health Maintenance Due Date Last Done Comments Diabetes: Eye Exam 1956 Pneumococcal Immunization (50+ years) (1 of 2 - PCV) 1975 Zoster Immunization (1 of 2) 1975 Cologuard 2001 Respiratory Syncytial Virus (RSV) Immunization (Adult) (1 - Risk 60-74 years 1-dose series) 2016 Medicare Initial AWV G0438 08/22/2018 Immunochemical Fecal Occult Blood 09/08/2019 09/07/2018, 08/31/2018 Diabetes: Foot Exam 08/12/2020 08/13/2019, 08/07/2019, 06/18/2019, Additional history exists DEXA Bone Density 08/02/2024 08/02/2022, 11/10/2020 Influenza Immunization (#1) 12/23/202412/24, 01/17/2023, 01/03/2022, Additional history exists SARS-COV-2 Immunization ( season) 2024 05/04/2021, 06/29/2020 Colonoscopy 01/08/2025 01/09/2020, 08/23, 09/09/2018 Colorectal Cancer Screening 01/08/2025 Diabetes: Hemoglobin A1c 07/02/2025 025, 12/04/2024, 05/21/2024, Additional history exists Diabetes: Nephropathy Screening 11/18/2025 [...] Priority Date/Time Associated Diagnosis Comments PAIN CONSULT 01/16/2025 12:00 AM CDT XR CHEST 2 VIEWS Routine 12/17/2024 2:58 [...] CDT URINALYSIS (UA) RANDOM 12:00 AM CDT HEMOGLOBIN, A1C 10/02/2023 12:00 AM CDT HM COLONOSCOPY Routine 01/09/2020 AMB REFERRAL TO PODIATRY Routine 08/13/2019 POCT STOOL, OCCULT BLOOD, DIAGNOSTIC Routine 09/07/2018 1:20 PM CDT Generalized abdominal pain from Last 3 Months or Most Recently Relevant to Health Maintenance Results * PAIN CONSULT (01/16/2025 12:00 AM CDT) Only the most recent of2 resultswithin the time period is included. 01/16/2025 us Justen Gale MD GENERIC SCAN ORDERS CONSULT F inal Result SCAN * XR CHEST 2 VIEWS (12/17/2024 2:58 [...] Baldomero Laboy D.O. AP: AP Report ID: [id number] Reading Location: [id number] Procedure Note Baldomero Laboy DO - 12/18/2024 EXAM DESCRIPTION: XR CHEST 2 VIEWS REASON FOR STUDY: Patient dx with CHF in November this . C/o sob x 1 month. H/o breast [...] Baldomero Laboy D.O. AP: AP Report ID: [id number] Reading Location: [id number] IMPRESSION: No significant change in appearance of the chest when compared to the previous chest radiograph dated 12/11/2024. Justen Gale MD IMG DIAGNOSTIC ORDERABLES Fin al Result * XR - CHEST (11/27/2024 12:00 AM CDT) Only the most recent of2 resultswithin the time period is included. 11/27/2024 us Provider Scan IMG DIAGNOSTIC ORDERABLES Final Result Performing Organization Address [facility] de Phone Number SCAN * RESPIRATORY SYNCYTIAL VIRUS BY MOLECULAR (11/18/2024 12:00 AM CDT) 11/18/2024 us Provider Scan MICROBIOLOGY - GENERAL ORDERABLE S Final Result Performing Organization Address [facility] Co de Phone Number SCAN * US - UPPER EXTREMITY (11/18/2024 12:00 AM CDT) 11/18/2024 us Provider Scan IMG US ORDERABLES Final Result Performing Organization Address City/[facility] Co de Phone Number SCAN * US - LOWER EXTREMITY (11/18/2024 12:00 AM CDT) 11/18/2024 us Provider Scan IMG US ORDERABLES Final Result Performing Organization Address [facility] de Phone Number SCAN * XR - UPPER EXTREMITY (11/18/2024 12:00 AM CDT) Only the most recent of2 resultswithin the time period is included. 11/18/2024 us Provider Scan IMG DIAGNOSTIC ORDERABLES Final Result Performing Organization Address [facility] de Phone Number SCAN * CARDIOLOGY CONSULT (11/18/2024 12:00 AM CDT) Only the most recent of2 resultswithin the time period is included. 11/18/2024 us Provider Scan GENERIC SCAN ORDERS CONSULT Deann l Result Performing Organization Address [facility] de Phone Number SCAN * LAB - MISCELLANEOUS (11/18/2024 12:00 AM CDT) Only the most recent of2 resultswithin the time period is included. 11/18/2024 us Provider Scan CHEMISTRY ORDERABLES Final Resul t Performing Organization Address [facility] de Phone Number SCAN * URINALYSIS (UA) RANDOM (11/18/2024 12:00 AM CDT) Only the most recent of3 resultswithin the time period is included. 11/18/2024 us Provider Scan URINE ORDERABLES Final Result Performing Organization [facility] de Phone Number SCAN * URIC ACID (BLOOD ASSAY) (11/18/2024 12:00 AM CDT) 11/18/2024 us Provider Scan CHEMISTRY ORDERABLES Final Resul t Performing Organization Address City/[facility] de Phone Number SCAN * TROPONIN I (TRP I) (11/18/2024 12:00 AM CDT) 11/18/2024 us Provider Scan CHEMISTRY ORDERABLES Final Resul t Performing Organization Address [facility] de Phone Number SCAN * APTT (PTT) (11/18/2024 12:00 AM CDT) Only the most recent of2 resultswithin the time period is included. 11/18/2024 us Provider Scan HEMATOLOGY ORDERABLES Final Resu lt Performing Organization Address [facility] de Phone Number SCAN * MAGNESIUM (MG) (11/18/2024 12:00 AM CDT) Only the most recent of3 resultswithin the time period is included. 11/18/2024 us Provider Scan CHEMISTRY ORDERABLES Final Resul t Performing Organization Address [facility] de Phone Number SCAN * LACTIC ACID (LACTATE) (11/18/2024 12:00 AM CDT) Only the most recent of2 resultswithin the time period is included. 11/18/2024 us Provider Scan CHEMISTRY ORDERABLES Final Resul t Performing Organization Address [facility] de Phone Number SCAN * GLUCOSE (11/18/2024 12:00 AM CDT) 11/18/2024 us Provider Scan CHEMISTRY ORDERABLES Final Resul t Performing Organization Address [facility] de Phone Number SCAN * D-DIMER (11/18/2024 12:00 AM CDT) 11/18/2024 us Provider Scan HEMATOLOGY ORDERABLES Final Resu lt Performing Organization Address [facility] de Phone Number SCAN * CMP (COMPREHENSIVE METABOLIC PANEL) (11/18/2024 12:00 AM CDT) Only the most recent of3 resultswithin the time period is included. 11/18/2024 us Provider Scan CHEMISTRY ORDERABLES Final Resul t Performing Organization Address [facility] de Phone Number SCAN * COMPLETE BLOOD COUNT (CBC) WITH DIFF (11/18/2024 12:00 AM CDT) Only the most recent of2 resultswithin the time period is included. 11/18/2024 us Provider Scan HEMATOLOGY ORDERABLES Final Resu lt Performing Organization Address [facility] de Phone Number SCAN * C-REACTIVE PROTEIN (CRP) QUANT (11/18/2024 12:00 AM CDT) 11/18/2024 us Provider Scan CHEMISTRY ORDERABLES Final Resul t Performing Organization Address [facility] de Phone Number SCAN * BASIC METABOLIC PANEL W/ CALCIUM TOTAL (11/18/2024 12:00 AM CDT) 11/18/2024 us Provider Scan CHEMISTRY ORDERABLES Final Resul t Performing Organization Address [facility] de Phone Number SCAN * B-TYPE NATRIURETIC PEPTIDE (BNP) (11/18/2024 12:00 AM CDT) Only the most recent of3 resultswithin the time period is included. 11/18/2024 us Provider Scan CHEMISTRY ORDERABLES Final Resul t SCAN * ECHO GENERIC (11/16/2024 12:00 AM CDT) Only the most recent of2 resultswithin the time period is included. LV EF(estimated)% 58 RESULTING AGENCY 11/16/2024 us Provider Scan IMG ECHO ORDERABLES Final Result Performing Organization Address City/State/[facility] de Phone Number RESULTING AGENCY * EKG SCAN (11/15/2024 12:00 AM CDT) Only the most recent of2 resultswithin the time period is included. 11/15/2024 us Provider Scan IMG ECG ORDERABLES Final Result Performing Organization Address City/[facility] de Phone Number RESULTING AGENCY * PROTIME (PT) (PROTHROMBIN TIME) (11/15/2024 12:00 AM CDT) Only the most recent of2 resultswithin the time period is included. INR 2.1 SCAN 11/15/2024 us Provider Scan HEMATOLOGY ORDERABLES Final Resu lt Performing Organization Address City/[facility] Co de Phone Number SCAN * THYROID STIMULATING HORMONE (TSH) (11/07/2024 12:00 AM CDT) Only the most recent of2 resultswithin the time period is included. 11/07/2024 us Provider Scan CHEMISTRY ORDERABLES Final Resul t Performing Organization Address City/[facility] Co de Phone Number SCAN * HEMOGLOBIN, A1C (10/02/2023 12:00 AM CDT) HGB-A1C 7.8 SCAN 10/02/2023 us Provider Scan CHEMISTRY ORDERABLES Final Resul t SCAN * HM COLONOSCOPY (01/09/2020) us Genaro T Camila DO PROCEDURE/MINOR SURGICAL ORDERA BLES Final Result * AMB REFERRAL TO PODIATRY (08/13/2019) us Alvarez Mensah MD OUTPATIENT REFERRALS Final Res ult * POCT STOOL, OCCULT BLOOD, DIAGNOSTIC (09/07/2018 1:20 PM CDT) OCCULT BLOOD, STOOL Negative Negative, Other POC HEMOCULT CONTROL Technology Officer Pass 09/07/2018 1:20 PM CDT Pili Elkins BAG MAKING MACHINE OPERATOR, SEPHORA PRODUCT CONSULTANT POINT OF CARE TEST ING (MANUAL) Final Result from Last 3 Months or Most Recently Relevant to Health Maintenance Insurance MEDICAID [place] MEDICARE C [employer] Care Teams Medical Genetics Director Relationship Specialty Start Date End Date Justen Gale MD [address]2 [facility] [address] [place] [address] PCP - General Family Medicine 10/17/17 David Roberts, BAG MAKING MACHINE OPERATOR, SEPH[employer]A PRODUCT CONSULTANT [address] [place] [address] Nurse Practitioner Advanced Practice Nurse 01/31/22 Annel Rod MD [address]2 [facility] [address] [place] [address] Consulting Physician Endocrinology 07/01/22
--- OUTSIDE RECORDS SUMMARY | 2025-02-03 14:18 | XMS_ITS | Encounter Summary ---
Author Organization [facility] Address [address] [place] [address] Phone Care Team Providers Care Vice Investigator Name Role Phone Lavonne Hathaway MD Primary Care Provider + [phone] Liu Jerez MD Unavailable [phone] Albert Corbin MD Unavailable [phone] Justen Gale MD Primary Care Provider [phone] Lavonne Hathaway MD Primary Care Provider + [phone] Justen Gale MD Primary Care Provider + [phone] Khris Arthur MD Unavailable + [phone] Ko Melendez MD Unavailable [phone] John Paul Moyer MD Unavailable Annel Rod MD Unavailable Anali MARSHALL MD, Carlos M. Unavailable [phone] Encounter Details Date Type Department Care Team ([facility] Contact Info) Description 05/15/2017 Orders Only [facility] Scanning, Provider Social History Tobacco Use Types Packs/Day Years Used Date Smoking Tobacco: Former Alcohol Use Standard Drinks/Week Comments No 0 (1 standard drink = 0.6 oz pur e alcohol) Comments Unknown Sex and Gender Information Value Date Recorded Sex Assigned at Not on file Legal Sex Female 12:24 AM INVENTORY TRANSCRIBER Gender Identity Not on file Sexual Orientation [...] COVID: Recovered 02/10/2022 02/10/2022 06/10/2022 3:05 AM INVENTORY TRANSCRIBER Exposure, COVID-19 Comment:Added automatically based on COVID19 lab answers indicating exposure risk 02/11/2022 02/11/2022 02/15/2022 9:06 AM C DT COVID: Suspected 05/14/2022 05/14/2022 05/14/2022 10:41 AM INVENTORY TRANSCRIBER COVID: Suspected 06/07/2022 06/07/2022 06/07/2022 12:28 PM INVENTORY TRANSCRIBER COVID: Suspected 06/21/2022 06/21/2022 06/21/2022 2:12 AM INVENTORY TRANSCRIBER COVID: Suspected 10/05/2022 10/05/2022 10/05/2022 7:40 PM CDT COVID: Suspected 01/04/2024 01/04/2024 01/04/2024 10:30 PM CDT COVID: Suspected 02/14/2024 02/14/2024 02/15/2024 12:36 AM CDT COVID: Suspected 07/01/2024 07/01/2024 07/01/2024 2:53 PM CDT COVID: Suspected 07/01/2024 07/01/2024 07/02/2024 3:05 AM CDT COVID: Suspected 12/08/2024 12/08/2024 12/08/2024 1:50 AM CDT documented as of this encounter Care Teams Vice Investigator Relationship Specialty Start Date End Date Lavonne Hathaway MD [address] [place] [address] [place] [address] PCP - General 08/16/16 08/17/17 Justen Gale MD [address] [facility] [address] [place] [address] PCP - General 08/18/17 08/22/17 Lavonne Hathaway MD [address] [place] [address] [place] [address] PCP - General Family Medicine 08/23/17 10/08/17 Justen Gale MD [address] [facility] [address] [place] [address] PCP - General 10/09/17 Liu Jerez MD [address] [place] [address] [place] [address] Consulting Physician Gastroenterology 07/28/17 [place] [address] [facility] [address] [place] [address] Consulting Physician Pulmonary Disease 08/03/17 Khris Arthur MD [address] [facility] [address] [place] [address] Medical Oncologist/Manager [facility] 10/23/17 [place] [address] [facility] [address] [place] [address] Surgeon Orthopedic Surgery 10/23/17 [place] [address] [facility] [address] [place] [address] Consulting Physician Pain Management 10/23/17 [place] [address] [facility] [address] [place] [address] Referring Physician General Surgery 01/26/18 [place] [address] [facility] [address] [place] [address] Consulting Physician Neurology 01/26/18 documented as of this encounter
--- OUTSIDE RECORDS SUMMARY | 2025-02-03 14:18 | XMS_ITS | Encounter Summary ---
Author Organization [facility] Address [address] [place] [address] Phone Care Team Providers Care Photocopying Machine Operator Name Role Phone Justen Gale MD Primary Care Provider [phone] David Roberts APRN, PULL OVER MACHINE OPERATOR Unavailable [phone] Annel Rod MD Unavailable Reason for Visit * Reason Comments Medication Refill Encounter Details Date Type Department Care Team (Late st Contact Info) Description 09/30/2023 Refill [facility] - Endocrinology - [place] [address] [place] [address] Annel Rod MD [address] [address] Medication Refill Social History [...] AM CDT Medication(s) refilled and signed per [facility] Chronic Medication Refill Standing Order for Pediatric and Adult Patients. documented in this encounter Plan of Treatment Upcoming Encounters Date Type Department Care Team (Late st Contact Info) Description 03/19/2025 2:00 PM ADULT EDUCATION INSTRUCTOR Office Visit [facility] - Endocrinology - [place] [address] [place] [address] Annel Rod MD [address] [address] 05/29/2025 1:30 PM ADULT EDUCATION INSTRUCTOR Office Visit [facility] - Family Medicine - [place] [address] [place] [address] Justen Gale MD [address] [id number] documented as of this encounter Visit Diagnoses Not on filedocumented in this encounter Additional Health Concerns Infection Onset Date Last Indicated Resolved Time COVID - 19 08/01/2024 08/01/2024 08/01/2024 3:20 PM CDT Respiratory Rule-Out 11/18/2024 11/18/2024 025 7:18 AM CDT Assessment Noted Time PHQ-9 Depression Total Score: 8 01/18/20 23 2:24 PM CDT documented as of this encounter Care Teams Photocopying Machine Operator Relationship Specialty Start Date End Date Justen Gale MD #2 [facility] [address] [place] [address] PCP - General Family Medicine 10/17/17 David Roberts APRN, PULL OVER MACHINE OPERATOR [address] [place] [address] Nurse Practitioner Advanced Practice Nurse 01/31/22 Annel Rod MD #[address] [id number] Consulting Physician Endocrinology 07/01/22 documented as of this encounter
--- OUTSIDE RECORDS SUMMARY | 2025-02-03 14:18 | XMS_ITS | Clinical Summary ---
Author Organization [facility] [employer] Address [address] [facility] [place] [address] Care Team Providers Care Osteology Teacher Name Role Phone Justen Gale MD Primary Care Provider [phone] Source Comments [facility],non-[facility] Affiliates and Associated Physician Practices is amultiple site organization consisting of ambulatory clinics and hospital sitesin [place], [place], [place] and [place]. This disclosure is being madepursuant to the Care Everywhere program and may not contain all information available regarding this patient. Last updated 18.[facility] [employer] Allergies Active Allergy Reactions Criticality Noted Date Comments Adhesive Sensitivity Rash Medium 09/16/2021 Amlodipine Base Swelling Medium 07/05/2022 Leg swelling Leg swelling Sulfamethoxazole W-Trimethoprim Vomiting 03/19/2023 Ceftriaxone Anaphylaxis,Shortn ess of Breath High 12/06/2011 R Cephalosporins Anaphylaxis,Shortn ess of Breath High 03/22/2017 Contrast-Iodinated Agents For Ct/Other Rash Medium 09/16/2021 Ketorolac Itching Low 07/05/2021 Latex Rash Medium 07/05/2021 Levofloxacin Urticaria,Skin Reactions Medium 04/20/2017 Lisinopril Swelling 04/19/2021 Nitrofurantoin Rash Medium 10/30/2021 Piperacillin-Tazobactam In D5w Rash Medium 07/05/2021 Pregabalin Other Low 10/29/2020 Reslizumab Unknown 10/29/2020 Skin Adhesives Skin Reactions 09/16/2021 Spironolactone Nausea and/or Vomiting,Fever,Hea dache Medium 01/03/2025 Pt states she doesn't want to take this medication anymore Trazodone Anaphylaxis,Other High 11/03/2017 Shaky, restlessness, itching, throat swelling Medications * Be aware that medications may not be up to date on this document. Alwaysverify current medications with the patient. exemestane (AROMASIN) 25 MG tablet Take 1 (one) tablet by mouth DAILY 017 Active rOPINIRole (REQUIP) 5 MG tablet TAKE 1 TABLET BY MOUTH EVERY NIGHT Active Lancets (ONETOUCH DELICA PLUS 33G EXTRA FINE LANCET) USE FOUR TIMES DAILY Active ONETOUCH ULTRA test strip 4 times daily Active insulin pen needle (B-D ULTRAFINE III SHORT PEN) 31G X 8 MM needle 4 times daily 300 Each Active rivaroxaban (Xarelto) 20 MG tabletIndicat ions:Deep Vein Thrombosis,Pu lmonary Embolism Take 1 (one) tablet by mouth daily with breakfast Reasons: Blockage of Blood Vessel to Lung by a Particle, Blood Clot in a Deep Vein Active Multiple Vitamins-Mine rals (Multivitamin Womens 50+ Adv) TABS Take 1 tablet by mouth once daily Active Continuous Blood Gluc Sensor (FreeStyle Eileen 2 Sensor Systm) [facility] APPLY 1 SENSOR AND WEAR FOR 14 DAYS TO CHECK BLOOD SUGAR Active gabapentin (Neurontin) 300 MG capsule Take 1 (one) capsule by mouth 3 times daily 024 Active naloxone HCl (Narcan) 4 MG/0.1ML nasal spray 024 Active oxyBUTYnin CR 24hr (Ditropan XL) 15 MG tablet Take 1 (one) tablet by mouth once daily 90 tablet 4 024 Active ondansetron, disintegratin g, (Zofran ODT) 4 MG tablet Take 1 (one) tablet by mouth every 6 hours as needed for Nausea/Vomiting Allow tablet to dissolve on the tongue 15 tablet 025 Active pantoprazole EC (Protonix) 40 MG tablet Take 1 (one) tablet by mouth once daily Active albuterol HFA (Proventil; Ventolin; Proair) 108 (90 Base) MCG/ACT inhaler Inhale 2 (two) puffs by mouth every 6 hours as needed Active acetaminophen (Tylenol) 500 MG tablet Take 1 (one) tablet by mouth every 4 hours as needed Maximum allowable Acetaminophen amount = 4 Grams (4000 mg) / 24 hours. Active aspirin (Aspirin) 81 MG chew tablet Take 1 (one) tablet by mouth once daily (chew and swallow) 30 tablet 2 Active atorvastatin (Lipitor) 40 MG tablet Take 1 (one) tablet by mouth at bedtime 30 tablet 2 Active diclofenac sodium (Voltaren) 1 % gel Apply 2 (two) g to affected area 4 times daily Active Additional Information Patient taking differently:2 g Topical 4 TIMES DAILY,Apply to lower back, Reason: Patient adjusted, Reported on 01/30/2025 diphenhydrAMI NE (Benadryl) 25 MG capsule Take 1 (one) capsule by mouth every 6 hours as needed for Itching Active empagliflozin (Jardiance) 10 MG tablet Take 1 (one) tablet by mouth once daily 30 tablet 2 Active polyethylene glycol 3350 (Miralax) 17 g packet Take 17 (seventeen) g by mouth once daily Active Additional Information Patient taking differently:17 g OralDAILY PRN, Constipation, Reason: Patient adjusted, Reported on 01/30/2025 valsartan (Diovan) 80 MG tablet Take 1 (one) tablet by mouth once daily 30 tablet 2 Active HumaLOG KwikPen 100 UNIT/ML pen Inject 6 (six) Units subcutaneously 3 times daily before meals 3 mL 2 Active insulin glargine (Lantus SoloStar) pen Inject 20 (twenty) Units subcutaneously once daily 15 mL 2 Active methotrexate 2.5 MG tablet Take 6 (six) tablets by mouth every 7 days (once a week) Take 3 tablets in the morning and 3 tablets in the evening Active folic acid (Folvite) 1 MG tablet Take 1 (one) tablet by mouth once daily Active predniSONE (Deltasone) 10 MG tablet Take 2 (two) tablets by mouth daily with breakfast Active furosemide (Lasix) 40 MG tablet Take 1 (one) tablet by mouth 2 times daily 30 tablet Active LANTUS SOLOSTAR pen Inject 10 (ten) Units subcutaneously once daily for 30 days 3 mL 2024 Discontinued(D ose Adjustment) HUMALOG KWIKPEN 100 UNIT/ML pen Inject 4 (four) Units subcutaneously 3 times daily before meals for 30 days 3.6 mL 2024 Discontinued(C linical Decision) HumaLOG KwikPen 100 UNIT/ML pen Inject 36 (thirty six) Units subcutaneously 3 times daily before meals 2024 Discontinued Lantus SoloStar pen Inject 45 (forty five) Units subcutaneously once 2024 Discontinued(D ose Adjustment) spironolacton e (Aldactone) 25 MG tablet Take 1 (one) tablet by mouth once daily 2024 Discontinued(C linical Decision) HYDROcodone-a cetaminophen ([place]) 10-325 MG tablet Take 1 (one) tablet by mouth every 6 hours as needed for Pain 2024 Discontinued(C linical Decision) furosemide (Lasix) 20 MG tablet Take 1 (one) tablet by mouth once daily 2024 Discontinued(C linical Decision) benzonatate (Tessalon) 100 MG capsule Take 1 (one) capsule by mouth 3 times daily as needed for Cough 30 capsule 2024 Discontinued(L ist Clean-Up) ibuprofen (Motrin) 200 MG tablet Take 1 (one) tablet by mouth every 6 hours as needed 2024 Discontinued(L ist Clean-Up) oxyCODONE-sara taminophen (Percocet) 10-325 MG tabletIndicat ions:Elevated troponin,Acut e pulmonary edema (HCC) Take 1 (one) tablet by mouth every 4 hours as needed 12 tablet 2024 Discontinued(C linical Decision) predniSONE (Deltasone) 10 MG tablet Take 1 (one) tablet by mouth daily with breakfast 2024 Discontinued(L ist Clean-Up) senna-docusat e (Senokot-S) 8.6-50 MG tablet Take 1 (one) tablet by mouth once daily 025 2024 Discontinued(L ist Clean-Up) Benzocaine-Me nthol (throat lozenge) Take 1 (one) lozenge by mouth every 2 hours as needed for Sore Throat 025 2024 Discontinued(L ist Clean-Up) predniSONE (Deltasone) 10 MG tablet Take 2 (two) tablets by mouth once daily 2024 Discontinued(C linical Decision) Active Problems Problem Noted Date Diagnosed Date [...] S/P insertion of spinal cord stimulator 09/17/19 22 Chronic back pain 08/16/2021 CVA (cerebral vascular [...] CPAP Neuropathy 07/05/2017 GERD (gastroesophageal reflux disease) Resolved Problems Problem Noted Date Diagnosed Date Resolved Date Rash 03/21/2023 04/18/2023 Encounters Date Type Department Care Team Description 01/30/2025 1:13 AM CDT - 02/02/2025 2:28 PM CDT Hospital Encounter [facility] [address] [place] [address] Patsy Hill MD Usman, Ahsan, MD Seleznev, Ilya, MD Hospitalist Discharge Disposition: Home or Self Care 01/30/2025 Travel 01/08/2025 Telephone [facility] [address] [facility] [address] [place] [address] Xavier Coronado MD Scheduling 01/02/2025 12:03 PM CDT - 01/06/2025 6:32 PM CDT Hospital Encounter [facility] [address] [place] [address] Yasmin Matthew DO Brown, Micahla C, MD Hambolu, Kehinde, MD Hospitalist Discharge Disposition: Home or Self Care 01/02/2025 Travel from Last 3 Months Immunizations Immunization [...] Given: No Alcohol Use Standard Drinks/Week Comments Never 0 [...] in a intermediate (including now)? No 05/16/2023 Housing Stability Vital Sign Answer [place] e Recorded In the last 12 months, was t here a time when you were not able to pay the mortgage or rent on time? Patient declined 01/04/20 In the past 12 months, how m any times have you moved where you were living? 0 01/03/2025 At any time in the past 12 m [facility], were you homeless or living in a intermediate (including now)? Patient declined 01/03/2025 AUDIT-C Answer [...] and heating? Not hard at all 02/01/2025 [facility] [place] [facility] Occup[facility] - Occupational Stress [...] living in a intermediate (including now)? 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 Gender Identity Not on file Sexual [...] Mass Index 51.96 01/30/2025 4:09 AM CDT Plan of Treatment Upcoming Encounters Date Type Department Care Team (Late st Contact Info) Description 02/04/2025 2:00 PM CDT Office Visit [facility] Heart & V[facility] [facility] [address] [place] [address] Xavier Coronado MD [address] [place] [address] [address] [place] [address] Health Maintenance Due Date Last Done Comments COLOGUARD (AGES 45-75) - COLON CA SCREENING 1956 COLON MONITORING 1956 COLONOSCOPY - COLON CA SCREENING 1956 CT COLONOGRAPHY - COLON CA SCREENING 1956 Colorectal Cancer Screening 1956 FIT - COLON CA SCREENING 1956 FLEX SIG - COLON CA SCREENING 1956 PNEUMOCOCCAL VACCINE 50+ (1 of 2 - PCV) 1975 ZOSTER VACCINE (1 of 2) 2006 Respiratory Syncytial Virus (RSV) Vaccine Pt: or over 60 yrs (1 - Risk 60-74 years 1-dose series) 2016 MAMMOGRAM 08/19/2018 08/19/2016 DIABETES RETINOPATHY SCREENING 10/04/2021 DIABETES-FOOT EXAM WITH MONOFILAMENT 10/04/2021 DEPRESSION SCREENING 04/24/2024 DIABETES - URINE PROTEIN SCREENING 04/24/2024 09/11/2021 MEDICARE AWV CALENDAR YEAR 2024 COVID-19 VACCINE (3 - season) 2024 05/04/2021, 06/29/2020 INFLUENZA VACCINE (#1) 2024 , 01/17/2023, 01/03/2022, Additional history exists DIABETES-HGB A1C 04/03/2025 01/02/2025, , 05/21/2024, Additional history exists DIABETES-SERUM CREATININE 02/02/20262024, 02/01/2025, 01/31/2025, Additional history exists DTAP/TDAP/TD VACCINES (2 - [...] this topic Medical Devices Implanted Type [employer] Launch Commander Device Identifier Shelf Expiration Date Model / Serial / Lot Lead Nrstm 60cm Penta 3mm Pdl 16 Chnl Implanted:Qt y: 1 on 09/16/2021 by Maxi Gregg MD at [facility] Right: Spine Thoracic [employer] [id number] / / Description:JJ Slnt Dura Duraseal Pg Trilysine Amine 5 Implanted:Qt y: 1 on 09/16/2021 by Maxi Gregg MD at [facility] Right: Spine Thoracic [employer] David [id number] / / Description:JJ Proclaim Plus 5 Implanted:Qt y: 1 on 02/16/2023 by Maxi Gregg MD at [facility] Left: Back Cardenas Spine [id number] 11/07/2024 [id number] / [id number] / Explanted Type [employer] Launch Commander Device Identifier Shelf Expiration Date Model / Serial / Lot Gntr Nrstm [id number] Proclaim Elt Implanted:Qty: 1 on 09/16/2021 by Maxi Gregg MD at [facility] Explanted:Qty: 1 on 10/30/2021 by Maxi Gregg MD at [facility] Right: Spine Thoracic [facility] [...] OF CARE Routine 01/30/2025 4:21 PM CDT CULTURE STREP GROUP A Routine 01/30/2025 2:50 PM CDT Sore throat STREP A SCREEN DIRECT W RFLX STREP A CULTURE Routine 01/30/2025 2:50 PM CDT Sore throat GLUCOSE - POINT OF CARE Routine 01/30/2025 12:01 PM CDT ERYTHROCYTE SEDIMENTATION RATE Routine 01/30/2025 8:50 AM CDT Polymyositis (HCC) C-REACTIVE PROTEIN Routine 01/30/2025 8: 50 AM CDT Polymyositis (HCC) GLUCOSE - POINT OF CARE Routine 01/30/2025 8:20 AM CDT OT EVAL AND TREAT Routine 01/30/2025 7:2 5 AM CDT TROPONIN-I HIGH SENSITIVE REFLEX 1HOUR Timed 01/30/2025 2:42 AM CDT XR CHEST 1VW PORTABLE STAT 01/30/2025 2:21 AM CDT SOB (shortness of breath) TSH REFLEX FREE T4 STAT 01/30/2025 1: 50 AM CDT NT-PRO BNP STAT 01/30/2025 1:50 AM CDT COMPREHENSIVE METABOLIC PANEL STAT 01/30/2025 1:50 AM CDT TROPONIN-I HIGH SENSITIVE BASELINE + 1HR STAT 01/30/2025 1:20 AM CDT CBC W AUTO DIFFERENTIAL STAT 01/30/2025 1:20 AM CDT EKG 12-LEAD STAT 01/30/2025 1:07 AM CDT SOB (shortness of breath) CARDIAC RHYTHM STRIP ORDER 01/07/2025 3:38 PM CDT GLUCOSE - POINT OF CARE Routine 01/06/2025 5:17 PM CDT GLUCOSE - POINT OF CARE Routine 01/06/2025 11:41 AM CDT NM MYOCARD PERF REST STRESS Routine 01/06/2025 11:21 AM CDT Elevated troponin STRESS TEST Routine 01/06/2025 10:20 AM CDT Elevated troponin GLUCOSE - POINT OF CARE Routine 01/06/2025 7:34 AM CDT MAGNESIUM BLOOD Routine 01/06/2025 2:02 AM CDT BASIC METABOLIC PANEL (CALCIUM TOTAL) AM Draw 01/06/2025 2:02 AM CDT GLUCOSE - POINT OF CARE Routine 01/05/2025 9:45 PM CDT GLUCOSE - POINT OF CARE Routine 01/05/2025 5:28 PM CDT GLUCOSE - POINT OF CARE Routine 01/05/2025 12:33 PM CDT GLUCOSE - POINT OF CARE Routine 01/05/2025 7:49 AM CDT MAGNESIUM BLOOD Routine 01/05/2025 7:00 AM CDT BASIC METABOLIC PANEL (CALCIUM TOTAL) AM Draw 01/05/2025 7:00 AM CDT GLUCOSE - POINT OF CARE Routine 01/04/2025 7:48 PM CDT GLUCOSE - POINT OF CARE Routine 01/04/2025 5:49 PM CDT GLUCOSE - POINT OF CARE Routine 01/04/2025 12:16 PM CDT GLUCOSE - POINT OF CARE Routine 01/04/2025 7:52 AM CDT MAGNESIUM BLOOD Routine 01/04/2025 6:05 AM CDT BASIC METABOLIC PANEL (CALCIUM TOTAL) AM Draw 01/04/2025 6:05 AM CDT GLUCOSE - POINT OF CARE Routine 01/03/2025 7:24 PM CDT CARDIAC EKG ORDER 01/03/2025 7: 11 PM CDT GLUCOSE - POINT OF CARE Routine 01/03/2025 5:02 PM CDT GLUCOSE - POINT OF CARE Routine 01/03/2025 11:[address] CHEST WO CONTRAST STAT 01/03/2025 8:41 AM CDT Shortness of breath RESPIRATORY PANEL WITH SARS-COV-2 BY PCR (STL) STAT 01/03/2025 8:14 AM CDT GLUCOSE - POINT OF CARE Routine 01/03/2025 7:51 AM CDT PROCALCITONIN LEVEL STAT 01/03/2025 2 :31 AM CDT MAGNESIUM BLOOD Routine 01/03/2025 2:31 AM CDT Acute pulmonary edema (HCC) CBC W/O DIFFERENTIAL Routine 01/03/2025 2:31 AM CDT Shortness of breath BASIC METABOLIC PANEL (CALCIUM TOTAL) Routine 01/03/2025 2:31 AM CDT Shortness of breath GLUCOSE - POINT OF CARE Routine 01/02/2025 8:15 PM CDT SARS-COV-2 (COVID-19) RAPID STAT 01/02/2025 3:45 PM CDT TROPONIN-I HIGH SENSITIVE REFLEX 1HOUR Timed 01/02/2025 1:37 PM CDT XR CHEST 1VW PORTABLE STAT 01/02/2025 12:24 PM CDT Shortness of breath HEMOGLOBIN A1C Routine 01/02/2025 12:16 PM CDT Shortness of breath B-TYPE NATRIURETIC PEPTIDE STAT 01/02/2025 12:16 PM CDT TROPONIN-I HIGH SENSITIVE BASELINE + 1HR STAT 01/02/2025 12:16 PM CDT MAGNESIUM BLOOD STAT 01/02/2025 12:16 PM CDT COMPREHENSIVE METABOLIC PANEL STAT 01/02/2025 12:16 PM CDT CBC W AUTO DIFFERENTIAL STAT 01/02/2025 12:16 PM CDT EKG 12-LEAD STAT 01/02/2025 11:56 AM CDT Shortness of breath HEPATITIS C AB SCREEN RFLX NAAT QUANT STAT 02/21/2023 6:30 PM CDT from Last 3 Months or Most Recently Relevant to Health Maintenance Results * (ABNORMAL) BASIC METABOLIC PANEL (CALCIUM TOTAL) (02/02/2025 8:23 AM CDT) Only the most recent of7 resultswithin the time period is included. Glucose 224(H) 70 - 99 mg/dL 02/02/2025 9:03 AM CDT [facility] Sodium 137 136 - 145 mmol/L 02/02/2025 9:03 AM CDT [facility] Potassium 3.5 3.5 - 5.1 mmol/L 02/02/2025 9:03 AM CDT [facility] Chloride 94(L) 98 - 107 mmol/L 02/02/2025 9:03 AM CDT [facility] CO2 30(H) 22 - 29 mmol/L 02/02/2025 9:03 AM CDT [facility] Calcium 10.0 8.4 - 10.4 mg/dL 02/02/2025 9:03 AM CDT [facility] Anion Gap 13 6 - 16 mmol/L 02/02/2025 9:03 AM CDT [facility] BUN 48(H) 7 - 26 mg/dL 02/02/2025 9:03 AM CDT [facility] Creatinine 1.10 0.50 - 1.20 mg/dL 02/02/2025 9:03 AM CDT [facility] eGFR by CKD-EPI 55(L) >=90 mL/min/1.7 3 m2 02/02/2025 9:03 AM CDT [facility] Comment:Estimated Glomerular Filtration Rate (eGFR) calculated using the CKD-EPI Creatinine Equation (2020), per the National Kidney Foundation and [place] Society of Nephrology recommendations. Blood BLOOD SPECIMEN / Unknown Lab Venipuncture / Unknown 02/02/2025 8:23 AM CDT 02/02/2025 8:38 AM CDT Darvin Parekh MD LAB - CHEMISTRY ORDERABLES Deann l Result Performing Organization Address City/[facility]/ZIP Co de Phone Number [facility] [address] [place] [phone] * (ABNORMAL) GLUCOSE - POINT OF CARE (02/02/2025 7:43 AM CDT) Only the most recent of31 resultswithin the time period is included. Pathologist [facility] Glucose WB/POC 231(H) 70 - 99 mg/dL 02/02/2025 7:53 AM CDT [facility] Specimen Type Arterial/C apillary 02/02/2025 7:53 AM CDT [facility] Blood BLOOD SPECIMEN / Unknown 02/02/2025 7:43 AM CDT 02/02/2025 7:53 AM CDT Darvin Parekh MD LAB - POINT OF CARE ORDERABLES Final Result [facility] [address] [place] [address] * LIPID PROFILE (01/31/2025 3:07 AM CDT) Cholesterol 176 <200 mg/dL 01/31/2025 4:09 AM CDT [facility] Triglycerides 114 <150 mg/dL 01/31/2025 4:09 AM CDT [facility] HDL Cholesterol 60 >40 mg/dL 4:09 AM CDT [facility] LDL Calculated 93 <130 mg/dL 01/31/2025 4:09 AM CDT [facility] Comment:LDL is calculated us ing the Friedewald equation. VLDL Calculated 23 <=30 mg/dL 4:09 AM CDT [facility] Chol HDL Ratio 2.9 <4.5 01/31/2025 4:09 AM CDT [facility] LDL/HDL Ratio 1.6 <5.0 01/31/2025 4:09 AM CDT [facility] Blood BLOOD SPECIMEN / Unknown Lab Venipuncture / Unknown 01/31/2025 3:07 AM CDT 01/31/2025 3:36 AM CDT Gil Perrin MD LAB - CHEMISTRY ORDERABLES Fin al Result Performing Organization Address [facility] Co de Phone Number [facility] [address] [place] [phone] * CARDIAC EKG ORDER (01/30/2025 5:05 PM CDT) Only the most recent of2 resultswithin the time period is included. Narrative 01/30/2025 5:05 PM CDT Ordered by an unspecified provider. Scanned Document CARDIAC SERVICES ORDERABLES Fin al Result * STREP A SCREEN DIRECT W RFLX STREP A CULTURE (01/30/2025 2:50 PM CDT) Strep A Rapid Negative Negative 01/30/2025 3:17 PM CDT [facility] Microbiology ENTIRE ANTERIOR SURFACE OF NECK / Unknown Collection / Unknown 01/30/2025 2:50 PM CDT 01/30/2025 3:04 PM CDT Narrative [facility] - 01/30/2025 3:17 PM CDT Test has reflexed to a Strep A culture. Jayla Bettencourt EMERGENCY VETERINARIAN-KNOWLEDGE ANALYST LAB - MICROBIOLOGY ORDERABLES Final Result Performing Organization Address [facility]/ZIP Co de Phone Number [facility] [address] [place] [phone] * CULTURE STREP GROUP A (01/30/2025 2:50 PM CDT) Culture Negative for beta-hemolytic Streptococcus Group A TERRANCE 01/31/2025 10:13 PM CDT [facility] MICROBIOLOGY Microbiology ENTIRE ANTERIOR SURFACE OF NECK / Unknown Collection / Unknown 01/30/2025 2:50 PM CDT 01/30/2025 3:04 PM CDT Jayla Bettencourt [facility] LAB - MICROBIOLOGY ORDERABLES Final Result [facility] MICROBIOLOGY [address] [place] [address], [facility] [phone] * (ABNORMAL) C-REACTIVE PROTEIN (01/30/2025 8:50 AM CDT) Pathologist [facility] C-Reactive Protein 1.74(H) <=0.50 mg/dL 01/30/2025 10:00 AM CDT [facility] Blood BLOOD SPECIMEN / Unknown Lab Venipuncture / Unknown 01/30/2025 8:50 AM CDT 01/30/2025 9:16 AM CDT Jayla Bettencourt EM[facility]ENCY [facility] LAB - CHEMISTRY OR DERABLES Final Result Performing Organization Address City/[facility]/ZIP Co de Phone Number [facility] [address] [place] [phone] * (ABNORMAL) ERYTHROCYTE SEDIMENTATION RATE (01/30/2025 8:50 AM CDT) Pathologist [facility] Erythrocyte Sedimentation Rate Automated 41(H) 0 - 30 MM/HR 01/30/2025 9:24 AM CDT [facility] Blood BLOOD SPECIMEN / Unknown Lab Venipuncture / Unknown 01/30/2025 8:50 AM CDT 01/30/2025 9:16 AM CDT Jayla Bettencourt [facility] LAB - HEMATOLOGY O RDERABLES Final Result [facility] [address] [place] [address] * TROPONIN-I HIGH SENSITIVE REFLEX 1HOUR (01/30/2025 2:42 AM CDT) Only the most recent of2 resultswithin the time period is included. Troponin I High Sensitive 10 <=14 ng/L 01/30/2025 3:12 AM CDT [facility] Delta Troponin I HS 1 <6 ng/L 01/30/2025 3:12 AM CDT [facility] Blood BLOOD SPECIMEN / Unknown Venipuncture / Unknown 01/30/2025 2:42 AM CDT 01/30/2025 2:50 AM CDT Patsy Hill MD LAB - CHEMISTRY ORDERABLES Fin al Result [facility] [address] [place] [address] * XR Chest 1Vw Portable (01/30/2025 2:21 AM CDT) Only the most recent of2 [...] Justen Lynch MD on 01/30/2025 8:29 AM Cordelia Wilson DO DIAGNOSTIC IMAGING ORDERABLES F inal Result * NT-PRO BNP (01/30/2025 1:50 AM CDT) NT-proBNP 156.9 <900.0 pg/mL 01/30/2025 2:26 AM CDT [facility] Blood BLOOD SPECIMEN / Unknown Venipuncture / Unknown 01/30/2025 1:50 AM CDT 01/30/2025 1:50 AM CDT [facility] - 01/30/2025 2:26 AM CDT NT-pro-BNP [...] other findings. NT-pro-BNP is measured on the Idylisnity analyzer using chemiluminescent microparticle immunoassay (CMIA) technology. Patsy Hill MD LAB - CHEMISTRY ORDERABLES Fin al Result [facility] [address] [place] [address] * TSH REFLEX FREE T4 (01/30/2025 1:50 AM CDT) TSH 1.984 0.350 - 4.940 uIU/mL 01/30/2025 2:26 AM CDT [facility] Blood BLOOD SPECIMEN / Unknown Venipuncture / Unknown 01/30/2025 1:50 AM CDT 01/30/2025 1:50 AM CDT us Patsy Hill MD LAB - CHEMISTRY ORDERABLES Fin al Result [facility] [address] [place] [address] * (ABNORMAL) COMPREHENSIVE METABOLIC PANEL (01/30/2025 1:50 AM CDT) Only the most recent of2 resultswithin the time period is included. Glucose 359(H) 70 - 99 mg/dL 01/30/2025 2:02 AM CDT [facility] Sodium 140 136 - 145 mmol/L 01/30/2025 2:02 AM CDT [facility] Potassium 4.2 3.5 - 5.1 mmol/L 01/30/2025 2:02 AM CDT [facility] Chloride 104 98 - 107 mmol/L 01/30/2025 2:02 AM CDT [facility] CO2 25 22 - 29 mmol/L 01/30/2025 2:02 AM CDT [facility] Calcium 9.5 8.4 - 10.4 mg/dL 01/30/2025 2:02 AM T [facility] Anion Gap 11 6 - 16 mmol/L 01/30/2025 2:02 AM CDT [facility] BUN 23 7 - 26 mg/dL 01/30/2025 2:02 AM CDT [facility] Creatinine 1.03 0.50 - 1.20 mg/dL 01/30/2025 2:02 AM [facility] Alkaline Phosphatase 76 40 - 150 U/L 01/30/2025 2:02 AM CDT [facility] ALT 27 6 - 57 U/L 01/30/2025 2:02 AM CDT [facility] AST 24 10 - 48 U/L 01/30/2025 2:02 AM [facility] Protein Total 7.7 6.4 - 8.3 gm/dL 01/30/2025 2:02 AM CDT [facility] Albumin 3.7 3.1 - 4.5 gm/dL 01/30/2025 2:02 AM [facility] Bilirubin Total 0.6 0.2 - 1.2 mg/dL 01/30/2025 2:02 AM CDT [facility] eGFR by CKD-EPI 59(L) >=90 mL/min/1.7 3 m2 01/30/2025 2:02 AM CDT [facility] Comment:Estimated Glomerular Filtration Rate (eGFR) calculated using the CKD-EPI Creatinine Equation (2020), per the National Kidney Foundation and [place] [employer] of Nephrology recommendations. Blood BLOOD SPECIMEN / Unknown Venipuncture / Unknown 01/30/2025 1:50 AM CDT 01/30/2025 1:50 AM CDT Patsy Hill MD LAB - CHEMISTRY ORDERABLES Fin al Result Performing Organization Address City/[facility] Co de Phone Number [facility] [address] [place], [place] [id number] * TROPONIN-I HIGH SENSITIVE BASELINE + 1HR (01/30/2025 1:20 AM CDT) Only the most recent of2 resultswithin the time period is included. Pathologist [facility] Troponin I High Sensitive 9 <=14 ng/L 01/30/2025 1:44 AM CDT [facility] Blood BLOOD SPECIMEN / Unknown Venipuncture / Unknown 01/30/2025 1:20 AM CDT 01/30/2025 1:20 AM CDT Patsy Hill MD LAB - CHEMISTRY ORDERABLES Fin al Result Performing Organization Address City/[facility] Co de Phone Number [facility] [address] [place], [place] [id number] * (ABNORMAL) CBC W AUTO DIFFERENTIAL (01/30/2025 1:20 AM CDT) Only the most recent of2 resultswithin the time period is included. WBC 13.4(H) 4.0 - 10.7 x10E9/L 01/30/2025 1:24 AM CDT [facility] RBC Count 4.52 3.90 - 5.20 x10E12/L 01/30/2025 1:24 AM CDT [facility] Hemoglobin 12.7 11.9 - 15.8 g/dL 01/30/2025 1:24 AM CDT [facility] Hematocrit 41.2 34.8 - 46.1 % 01/30/2025 1:24 AM CDT [facility] MCV 91.2 80.0 - 98.0 fL 01/30/2025 1:24 [facility] MCH 28.1 26.7 - 33.6 pg 01/30/2025 1:24 AM CDT [facility] MCHC 30.8(L) 31.7 - 36.3 g/dL 01/30/2025 1:24 AM [facility] RDW-CV 14.0 11.3 - 14.8 % 01/30/2025 1:24 [facility] Platelet Count 258 150 - 420 x10E9/L 01/30/2025 1:24 AM [facility] MPV 9.9 7.8 - 11.4 fL 01/30/2025 1:24 AM [facility] Neutrophil % 74.9(H) 41.0 - 74.0 % 01/30/2025 1:24 [facility] Lymphocyte % 19.2 17.0 - 47.0 % 01/30/2025 1:24 [facility] Monocyte % 5.1 3.0 - 11.0 % 01/30/2025 1:24 [facility] Eosinophil % 0.3 0.0 - 7.0 % 01/30/2025 1:24 AM CDT [facility] Basophil % 0.2 0.0 - 1.6 % 01/30/2025 1:24 AM CDT [facility] Immature Granulocytes % 0.3 0.0 - 1.0 % 01/30/2025 1:24 AM [facility] Neutrophil Absolute 10.06(H) 1.60 - 7.50 x10E9/L 01/30/2025 1:24 AM CDT [facility] Lymphocyte Absolute 2.58 1.00 - 4.40 x10E9/L 01/30/2025 1:24 AM CDT [facility] Monocyte Absolute 0.69 0.15 - 1.00 x10E9/L 01/30/2025 1:24 AM CDT [facility] Eosinophil Absolute 0.04 0.00 - 0.60 x10E9/L 01/30/2025 1:24 AM CDT [facility] Basophil Absolute 0.03 0.00 - 0.13 x10E9/L 01/30/2025 1:24 AM CDT [facility] Blood BLOOD SPECIMEN / Unknown Venipuncture / Unknown 01/30/2025 1:20 AM CDT 01/30/2025 1:20 AM CDT Patsy Hill MD LAB - HEMATOLOGY ORDERABLES Fi nal Result Performing Organization Address City/[facility]/ZIP Co de Phone Number [facility] [address] [place], [place] [id number] * EKG 12-Lead (01/30/2025 1:07 AM CDT) Only the most recent of2 resultswithin the time period is included. Ventricular Rate 86 BPM [facility] Atrial Rate 86 BPM [facility] P-R Interval 114 ms [facility] QRS Duration ms 86 ms [facility] Q-T Interval ms 370 ms [facility] QTC Calculation (Bezet) 442 ms [facility] Calculated P [place] 15 degrees [facility] Calculated T [place] 55 degrees [facility] Interpretation EKG NORMAL SINUS RHYTHM NORMAL ECG WHEN COMPARED WITH ECG OF 06-JAN-2025 10:09, NO SIGNIFICANT CHANGE WAS FOUND Confirmed by MD CAMARA PAUL ([id number]) on 01/30/2025 3:29:07 PM [facility] 01/30/2025 1:07 AM CDT 01/30/2025 3:29 PM CDT Patsy Hill MD ECG ORDERABLES Edited Result - Final [facility] * CARDIAC RHYTHM STRIP ORDER (01/07/2025 3:38 PM CDT) Narrative 01/07/2025 3:38 PM CDT Ordered by an unspecified provider. Scanned Document CARDIAC SERVICES ORDERABLES Fin al Result * NM MYOCARD PERF REST STRESS (01/06/2025 11:21 AM CDT) Anatomical Region Laterality Modality Chest Nuclear Medicine 01/06/2025 9:22 AM CDT Narrative Procedure Note Genaro Uribe MD - 01/06/2025 [place] [address] Nuclear Myocardial Perfusion Scan Report Pat.Name: MOHSEN MARQUES Pat.ID: [id number] St.Date: 01/06/2025 Refer.MD: Mike Bhandari Exam Time: 9:22:00 AM Study Type:Nuclear Myocardial Perfusion Scan Age: 2 1955,69Y Sex: FEMALE Race: [facility] Visit ID: [id number] ++++++++++++++++++++++++++++++++++++ SUMMARY: ++++++++++++++++++++++++++++++++++++ FINDINGS: Myocardial perfusion imaging reveals normal distribution of the radiopharmaceutical isotope during the stress and rest imaging sets. Left ventricular cavity size appears normal in both imaging sets. Gated SPECT images reveal normal LV systolic function with a calculated ejection fraction of 70%. SUMMARY: 1. Normal myocardial perfusion study without evidence of ischemia. 2. Gated SPECT images demonstrate normal LV systolic function. Signed 01/06/2025 01:54 PM Genaro Uribe MD, [facility] us Mike Bhandari MD NM ORDERABLES Edited * STRESS TEST Pharm-Lexiscan (Regadenoson) (01/06/2025 10:20 AM CDT) Anatomical Region Laterality Modality Cardiac Electrop hysiology 01/06/2025 7:00 AM CDT Narrative 01/06/2025 3:40 PM CDT Patient Info Name: Mohsen Marques Age: 69 years : 1955 Gender: Female Ht: 61 in Wt: 275 lb BSA: 2.40 m2 HR: 73 bpm BP: 139 / 88 mmHg Heart Rhythm: Sinus Rhythm Exam Date: 01/06/2025 7:00 AM Patient Status: I/P Study Site: [facility] Primary Location: [facility] EStudy Info Exam Type: STRESS TEST Indications R79.89 - Elevated troponin Procedure(s) * Pharmacological stress test was performed. Staff Referring Physician: Mike Bhandari Ordering Provider: Mike Bhandari Attending Physician: Mike Bhandari Nurse: Andria Cobos Exercise Physician: Genaro Uribe Summary * Pharmacological stress test was performed. * Normal sinus rhythm - normal ECG at rest. * Heart rate demonstrated a normal response to stress. * A peak heart rate of 90 bpm was achieved. * The patient's peak stress blood pressure was 139/88 mmHg. * No abnormal ST/T wave changes with stress. * Occasional PVCs during exercise. * Nuclear perfusion images will be reported separately. Protocol: Regadenoson Stress ECG Details Stage: Rest Duration (min): --- HR (bpm): 74 SBP (mmHg): 139 DBP (mmHg): 88 Symptoms: None Stage: 1 Duration (min): 4 min : 0 sec Dose: 0.4mg Medication(s): regadenoson HR (bpm): 90 SBP (mmHg): 102 DBP (mmHg): 66 Symptoms: None Stage: Rest Duration (min): 4 min : 5 sec HR (bpm): 81 SBP (mmHg): 108 DBP (mmHg): 68 Symptoms: None Target HR Summary: Normal heart rate response BP Response: Normal blood pressure response Cardiac Symptoms: None Resting ECG Normal sinus rhythm - normal ECG at rest. Stress ECG Heart rate demonstrated a normal response to stress. A peak heart rate of 90 bpm was achieved. The patient's peak stress blood pressure was 139/[address]/T wave changes with stress. Arrhythmias Occasional PVCs during exercise. Termination Reason: Protocol completed Total Time: 4 min : 0 sec Heart Rate Response : Resting HR (bpm): 72 : Peak HR (bpm): 90 : Max Predicted HR (bpm): 152 : % of Max Predicted HR: 59 % : Target HR (bpm): 129 Blood Pressure Response : Rest Sys. BP (mmHg): 139 : Rest Diast. BP (mmHg): 88 : Peak Sys. BP (mmHg): 139 : Peak [place]. BP (mmHg): 88 : Max Rate Pressure Product (bpm*mmHg): 12,510 Medication Regadenoson Dose: 0.4 mg Report Signatures Finalized by Genaro Uribe on 01/06/2025 03:40 PM Procedure Note Genaro Uribe MD - 01/06/2025 Patient Info Name: Mohsen Marques Age: 69 years : 1955 Gender: Female Ht: 61 in Wt: 275 lb BSA: 2.40 m2 HR: 73 bpm BP: 139 / 88 mmHg Heart Rhythm: Sinus Rhythm Exam Date: 01/06/2025 7:00 AM Patient Status: I/P Study Site: [facility] Primary Location: [facility] EStudy Info Exam Type: STRESS TEST Indications R79.89 - Elevated troponin Procedure(s) * Pharmacological stress test was performed. Staff Referring Physician: Mike Bhandari Ordering Provider: Mike Bhandari Attending Physician: Mike hBandari Nurse: Andria Cobos Exercise Physician: Genaro Uribe Summary * Pharmacological stress test was performed. * Normal sinus rhythm - normal ECG at rest. * Heart rate demonstrated a normal response to stress. * A peak heart rate of 90 bpm was achieved. * The patient's peak stress blood pressure was 139/88 mmHg. * No abnormal ST/T wave changes with stress. * Occasional PVCs during exercise. * Nuclear perfusion images will be reported separately. Protocol: Regadenoson Stress ECG Details Stage: Rest Duration (min): --- HR (bpm): 74 SBP (mmHg): 139 DBP (mmHg): 88 Symptoms: None Stage: 1 Duration (min): 4 min : 0 sec Dose: 0.4mg Medication(s): regadenoson HR (bpm): 90 SBP (mmHg): 102 DBP (mmHg): 66 Symptoms: None Stage: Rest Duration (min): 4 min : 5 sec HR (bpm): 81 SBP (mmHg): 108 DBP (mmHg): 68 Symptoms: None Target HR Summary: Normal heart rate response BP Response: Normal blood pressure response Cardiac Symptoms: None Resting ECG Normal sinus rhythm - normal ECG at rest. Stress ECG Heart rate demonstrated a normal response to stress. A peak heart rateof 90 bpm was achieved. The patient's peak stress blood pressure was 139/88mmHg. No abnormal ST/T wave changes with stress. Arrhythmias Occasional PVCs during exercise. Termination Reason: Protocol completed Total Time: 4 min : 0 sec Heart Rate Response : Resting HR (bpm): 72 : Peak HR (bpm): 90 : Max Predicted HR (bpm): 152 : % of Max Predicted HR: 59 % : Target HR (bpm): 129 Blood Pressure Response : Rest Sys. BP (mmHg): 139 : Rest Diast. BP (mmHg): 88 : Peak Sys. BP (mmHg): 139 : Peak [place]. BP (mmHg): 88 : Max Rate Pressure Product (bpm*mmHg): 12,510 Medication Regadenoson Dose: 0.4 mg Report Signatures Finalized by Genaro Uribe on 01/06/2025 03:40 PM us Mike Bhandari MD [facility] Final Result * MAGNESIUM BLOOD (01/06/2025 2:02 AM CDT) Only the most recent of5 resultswithin the time period is included. Magnesium 2.2 1.6 - 2.6 mg/dL 01/06/2025 4:21 AM CDT [facility] Blood BLOOD SPECIMEN / Unknown Lab Venipuncture / Unknown 01/06/2025 2:02 AM CDT 01/06/2025 3:49 AM CDT Mike Bhandari MD LAB - CHEMISTRY ORDERABLES Fi nal Result [facility] [address] [place] [address] * CT Chest Wo Contrast (01/03/2025 8:41 AM CDT) Anatomical Region Laterality Modality Chest Computed Tomogra phy 01/03/2025 8:53 AM CDT Impressions 01/03/2025 9:03 AM CDT IMPRESSION: 1. No acute chest findings. 2. Unchanged mildly enlarged ascending thoracic aorta and aortic arch. 3. Coronary atherosclerosis. 4. Unchanged thoracic neurostimulator leads. 5. Other chronic and incidental findings as described > Interpreting Provider: Michel Martin MD on 01/03/2025 9:03 AM Narrative 01/03/2025 9:03 AM CDT PROCEDURE: CT CHEST WO CONTRAST DATE/TIME OF EXAM: 01/03/2025 8:42 AM CLINICAL INFORMATION: None relevant/not provided if blank. Indication: R06.02: Shortness of breath Additional History: COMPARISON: Chest CT from 02/18/2023 TECHNIQUE: CT of the chest was performed without intravenous contrast utilizing standard protocol. CT dose reduction technique was used, including Automated Exposure Control. FINDINGS: The lungs are clear and free of effusion. There is no mass or pneumonia. In the left posterior basal segment a 2 mm noncalcified nodule is unchanged since 2022 and should be incidental. There is some localized peripheral fibrosis in the anterior segment left upper lobe and lingula. Trachea and bronchi are patent. The heart size is normal without pericardial effusion. There is mild to moderate calcified plaque in the coronary arteries. The mitral valve is calcified. The ascending thoracic aorta is mildly enlarged measuring 4.0 cm. The distal aortic arch is also enlarged up to 3.6 cm but the descending thoracic aorta is normal in size. No significant change since 2022. An anterior mediastinal node has decreased in size, now 1.1 cm. No significant mediastinal or axillary adenopathy. Overall thyroid size is normal but there is a small chronic subcentimeter nodule in the right. The visualized portions of the liver and spleen are unremarkable. Midthoracic spinal neurostimulator leads are unchanged Procedure Note Michel Martin MD - 01/03/2025 PROCEDURE: CT CHEST WO CONTRAST DATE/TIME OF EXAM: 01/03/2025 8:42 AM CLINICAL INFORMATION: None relevant/not provided if blank. Indication: R06.02: Shortness of breath Additional History: COMPARISON: Chest CT from 02/18/2023 TECHNIQUE: CT of the chest was performed without intravenous contrast utilizing standard protocol. CT dose reduction technique was used, including Automated ExposureControl. FINDINGS: The lungs are clear and free of effusion. There is no mass or pneumonia. In the left posterior basal segment a 2 mm noncalcified nodule isunchanged since 2022 and should be incidental. There is some localized peripheral fibrosis in the anterior segment left upper lobe and lingula. Tracheaand bronchi are patent. The heart size is normal without pericardialeffusion. There is mild to moderate calcified plaque in the coronary arteries.The mitral valve is calcified. The ascending thoracic aorta is mildly enlarged measuring 4.0 cm. The distal aortic arch is also enlarged up to 3.6 cm but the descending thoracic aorta is normal in size. No significant change since 2022. An anterior mediastinal node has decreased in size, now 1.1 cm. No significant mediastinal or axillary adenopathy. Overall thyroid size is normal but there is a small chronic subcentimeter nodule in the right. The visualized portions of the liver and spleen are unremarkable. Midthoracic spinal neurostimulator leads are unchanged IMPRESSION: 1. No acute chest findings. 2. Unchanged mildly enlarged ascending thoracic aorta and aortic arch. 3. Coronary atherosclerosis. 4. Unchanged thoracic neurostimulator leads. 5. Other chronic and incidental findings as described > Interpreting Provider: Michel Martin MD on 01/03/2025 9:03 AM Mike Bhandari MD CT ORDERABLES Final Result * RESPIRATORY PANEL WITH SARS-COV-2 BY PCR (STL) (01/03/2025 8:14 AM CDT) Adenovirus PCR Not detected Not detected 01/03/2025 1:17 PM CDT [facility] Coronavirus 229E PCR Not detected Not detected 01/03/2025 1:17 PM CDT [facility] Coronavirus HKU1 PCR Not detected Not detected 01/03/2025 1:17 PM CDT [facility] Coronavirus NL63 PCR Not detected Not detected 01/03/2025 1:17 PM CDT [facility] Coronavirus OC43 PCR Not detected Not detected 01/03/2025 1:17 PM CDT [facility] COVID-19 PCR Not detected Not detected 01/03/2025 1:17 PM CDT [facility] Human Metapneumovirus PCR Not detected Not detected 01/03/2025 1:17 PM CDT [facility] Human Rhinovirus/Enterov irus PCR Not detected Not detected 01/03/2025 1:17 PM CDT [facility] Influenza A PCR Not detected Not detected 01/03/2025 1:17 PM CDT [facility] Influenza B PCR Not detected Not detected 01/03/2025 1:17 PM CDT [facility] Parainfluenza Virus 1 PCR Not detected Not detected 01/03/2025 1:17 PM CDT [facility] Parainfluenza Virus 2 PCR Not detected Not detected 01/03/2025 1:17 PM CDT [facility] Parainfluenza Virus 3 PCR Not detected Not detected 01/03/2025 1:17 PM CDT [facility] Parainfluenza Virus 4 PCR Not detected Not detected 01/03/2025 1:17 PM CDT [facility] Respiratory Syncytial Virus PCR Not detected Not detected 01/03/2025 1:17 PM CDT [facility] Bordetella parapertussis PCR Not detected Not detected 01/03/2025 1:17 PM CDT [facility] Bordetella pertussis PCR Not detected Not detected 01/03/2025 1:17 PM CDT [facility] Chlamydia pneumoniae PCR Not detected Not detected 01/03/2025 1:17 PM CDT [facility] Mycoplasma pneumoniae PCR Not detected Not detected 01/03/2025 1:17 PM CDT [facility] Microbiology SPECIMEN FROM NASOPHARYNGEAL STRUCTURE / Unknown Collection / Unknown 01/03/2025 8:14 AM CDT 01/03/2025 8:30 AM CDT Narrative [facility] - 01/03/2025 1:17 PM CDT This nucleic amplification assay has received FDA authorization via the [place] [employer]. Mike Bhandari MD LAB - MICROBIOLOGY ORDERABLES Final Result [facility] [address] [place], [place] [address], [facility] [phone] * PROCALCITONIN LEVEL (01/03/2025 2:31 AM CDT) Procalcitonin 0.05 <0.10 ng/mL 01/03/2025 9:00 AM CDT [facility] Blood BLOOD SPECIMEN / Unknown Lab Venipuncture / Unknown 01/03/2025 2:31 AM CDT 01/03/2025 4:20 AM CDT Narrative [facility] - 01/03/2025 9:00 AM CDT The change in procalcitonin (PCT) concentration over time provides support in decision making on antibiotic discontinuation for suspected or confirmed septic patients. Follow-up samples should be tested once every 1-2 days based upon physician discretion taking into account the patient s evolution and progress. Consider discontinuation of antibiotic therapy if the PCT current is <= 0.5 ng/mL or if the delta PCT is > 80%. Duration of antibiotics should not be determined solely on PCT; established guidelines for the indication should be followed. PCT peak: Highest observed PCT concentration PCT current: Most recent PCT concentration Calculate delta PCT using the following equation: Delta PCT = PCT Peak PCT current X 100% PCT Peak The Change in Procalcitonin Calculator is available at [email or web address]-MKV-[email or web address] If clinical picture has not improved and PCT remains high, reevaluate and consider treatment failure or other causes. Mike Bhandari MD LAB - CHEMISTRY ORDERABLES Fi nal Result Performing Organization Address City/[facility]/ZIP Co de Phone Number [facility] [address] [place] [address] * (ABNORMAL) CBC W/O DIFFERENTIAL (01/03/2025 2:31 AM CDT) WBC 12.2(H) 4.0 - 10.7 x10E9/L 01/03/2025 4:29 AM CDT [facility] RBC Count 3.90 3.90 - 5.20 x10E12/L 01/03/2025 4:29 AM CDT [facility] Hemoglobin 11.3(L) 11.9 - 15.8 g/dL 01/03/2025 4:29 AM CDT [facility] Hematocrit 35.5 34.8 - 46.1 % 01/03/2025 4:29 AM CDT [facility] MCV 91.0 80.0 - 98.0 fL 01/03/2025 4:29 AM CDT [facility] MCH 29.0 26.7 - 33.6 pg 01/03/2025 4:29 AM CDT [facility] MCHC 31.8 31.7 - 36.3 g/dL 01/03/2025 4:29 AM CDT [facility] RDW-CV 13.4 11.3 - 14.8 % 01/03/2025 4:29 AM CDT [facility] Platelet Count 249 150 - 420 x10E9/L 01/03/2025 4:29 AM CDT [facility] MPV 10.3 7.8 - 11.4 fL 01/03/2025 4:29 AM CDT [facility] Blood BLOOD SPECIMEN / Unknown Lab Venipuncture / Unknown 01/03/2025 2:31 AM CDT 01/03/2025 4:20 AM CDT us Kimberley Young EMERGENCY VETERINARIAN-KNOWLEDGE ANALYST LAB - HEMATOLOGY ORD ERABLES Final Result [facility] [address] [place] [address] * SARS-COV-2 (COVID-19) RAPID (01/02/2025 3:45 PM CDT) COVID-19 PCR Not detected Not detected 01/03/20 4:22 PM CDT [facility] Microbiology SPECIMEN FROM NASOPHARYNGEAL STRUCTURE / Unknown Collection / Unknown 01/02/2025 3:45 PM CDT 01/02/2025 3:51 PM CDT Narrative [facility] - 01/02/2025 4:22 PM CDT The [employer] Xpert Xpress SARS-COV-2 has been authorized by [...] assay are available upon request. Yasmin Matthew DO LAB - MICROBIOLOGY ORDERABLE S Final Result Performing Organization Address City/State/[facility] Co de Phone Number [facility] [address] [place] [address] * (ABNORMAL) HEMOGLOBIN A1C (01/02/2025 12:16 PM CDT) Hemoglobin A1c 9.3(H) <5.7 % 01/02/2025 7:02 PM CDT [facility] Estimated Average Glucose 220 mg/dL 01/02/2025 7:02 PM CDT [facility] Blood BLOOD SPECIMEN / Unknown Venipuncture / Unknown 01/02/2025 12:16 PM CDT 01/02/2025 12:17 PM CDT Narrative [facility] - 01/02/2025 7:02 PM CDT HbA1c Interpretation: Normal: < 5.7% Pre-diabetes: 5.7-6.4% Diabetes: Equal to or greater than 6.5% Test results diagnostic of diabetes should be repeated for confirmation. Treatment target values recommended by ADA and other clinical organizations should be used to evaluate metabolic control in patients. This test should not replace glucose testing for patients with Type 1 diabetes, pediatric patients, or women. Falsely low HbA1c results may be observed in patients with clinical conditions that shorten erythrocyte life span or decrease mean erythrocyte age such as the presence of unstable hemoglobin variants, elevated hemoglobin F level or other causes of hemolytic anemia. HbA1c may not accurately reflect glycemic control when clinical conditions that affect erythrocyte survival are present. Severe Iron deficiency anemia may yield falsely high results. Hemoglobin A1c assay should not be used to diagnose or monitor diabetes in patients with malignancy, recent blood transfusion, chronic kidney or liver disease. This method may yield falsely low results when hemoglobin (HbF) exceeds 5% in the specimen. The [employer]arden[employer] Alinity assay for the measurement of HbA1c is a National Glycohemoglobin Standardization Program (NGSP) certified method. Kimberlye Young APRN-[facility] - CHEMISTRY ANGEL SPEARS Final Result Performing Organization Address City/State/[facility] Co de Phone Number [facility] [address] [place] [address] * B-TYPE NATRIURETIC PEPTIDE (01/02/2025 12:16 PM CDT) BNP 46 <=100 pg/mL 01/02/2025 12:41 PM CDT [facility] Blood BLOOD SPECIMEN / Unknown Venipuncture / Unknown 01/02/2025 12:16 PM CDT 01/02/2025 12:17 PM CDT Narrative [facility] - 01/02/2025 12:41 PM CDT A cutoff of 100 pg/mL [...] candidates for or are undergoing renal dialysis. us Josué Bernal PA-C LAB - CHEMISTRY ORDERABLE S Final Result Performing Organization Address City/[facility] Co de Phone Number [facility] [address] [place] [address] * HEPATITIS C AB SCREEN RFLX NAAT QUANT (02/21/2023 6:30 PM CDT) Hepatitis C Antibody Non-react hugh Non-reac tive 02/21/2023 7:32 PM CDT [facility] Comment:Hepatitis C Antibody screen indicates no [...] ORDERABLES Fi nal Result Performing Organization Address City/[facility] Co de Phone Number [facility] [address] [place] [address], [facility] [phone] from Last 3 Months or Most Recently Relevant to Health Maintenance Insurance [facility] MANAGED MEDICARE [place] [id number] [facility] MANAGED MEDICARE [facility] MEDICAID - [place] Advance Directives * Full Code (Latest Code Status on File) Date Activated Date Inactivated Comments 01/30/2025 5:32 AM 02/02/2025 3:34 PM * Full Code Date Activated Date Inactivated Comments 01/02/2025 6:39 PM 01/06/2025 7:37 PM * Full Code Date Activated Date Inactivated Comments 07/26/2023 11:42 PM 08/01/2023 6:01 PM * Full Code Date Activated Date Inactivated Comments 06/16/2023 8:11 PM 06/17/2023 2:06 PM * Full Code Date Activated Date Inactivated Comments 05/16/2023 12:11 AM 05/20/2023 7:16 PM Care Teams Osteology Teacher Relationship Specialty Start Date End Date Justen Gale MD [facility] - General 07/05/21
--- OUTSIDE RECORDS SUMMARY | 2025-02-03 14:18 | XMS_ITS | Encounter Summary ---
Author Organization [facility] Address [address] [place] [address] Phone Care Team Providers Care Biologist Name Role Phone Justen Gale MD Primary Care Provider [phone] David Roberts APRN, HEATING AND AIR CONDITIONING MECHANIC Unavailable [phone] Annel Rod MD Unavailable Reason for Visit * Reason Comments Medication Refill Encounter Details Date Type Department Care Team (Late st Contact Info) Description 03/02/2023 Refill [facility] #2 [place] [phone] Justen Gale MD #[address] [address] Medication Refill Social History Tobacco Use Types [...] Tamika Villarreal RN - 03/02/2023 8:51 AM IMPORT EXPORT COORDINATOR Medication failed the protocol, provider to review [...] Dept 01/17/23 Office Visit Catrina Quiñonez MD [facility] 09/16/22 Office Visit Pili Elkins APRN, CNP [facility] 07/05/22 Office Visit Pili Elkins APRN, NETTA [facility] 05/02/22 Office Visit Justen Gale MD [facility] 03/03/22 Office Visit Pili Elkins APRN, NETTA [facility] Showing recent visits within past 365 days and meeting all other requirements Future Appointments No visits were found meeting these conditions. Showing future appointments within next 90 days and meeting all other requirements RT EXPORT COORDINATOR documented in this encounter Plan of Treatment Upcoming Encounters Date Type Department Care Team (Late st Contact Info) Description 03/19/2025 2:00 PM IMPORT EXPORT COORDINATOR Office Visit [facility] Endocr[facility]ology - [place] #2 [place] [address] Annel Rod MD #[address] [phone] 05/29/2025 1:30 PM IMPORT EXPORT COORDINATOR Office Visit [facility] #[address] [place] [address] Justen Gale MD #2 [facility] [address] [place] [address] documented as of this encounter Visit Diagnoses Not on filedocumented in this encounter Additional Health Concerns Infection Onset Date Last Indicated Resolved Time COVID - 19 08/01/2024 08/01/2024 08/01/2024 3:20 PM CDT Respiratory Rule-Out 11/18/2024 11/18/2024 025 7:18 AM CDT Assessment Noted Time PHQ-9 Depression Total Score: 8 01/18/20 23 2:24 PM CDT documented as of this encounter Care Teams Biologist Relationship Specialty Start Date End Date Jutsen Gale MD #[address] [address] PCP - General Family Medicine 10/17/17 David Roberts APRN, HEATING AND AIR CONDITIONING MECHANIC #2 [place] [address] Nurse Practitioner Advanced Practice Nurse 01/31/22 Annel Rod MD #[address] [address] Consulting Physician Endocrinology 07/01/22 documented as of this encounter
--- OUTSIDE RECORDS SUMMARY | 2025-02-03 14:18 | XMS_ITS | Encounter Summary ---
Author Organization [facility] Address [address] [place] [address] Phone Care Team Providers Care Stage Set Designer Name Role Phone Justen Gale MD Primary Care Provider [phone] David Roberts APRN, OCEAN BIOLOGIST Unavailable [phone] Annel Rod MD Unavailable Encounter Details Date Type Department Care Team (Late st Contact Info) Description 06/05/2020 [facility] [address] [place] [address] Pili Elkins, MOBILE SOLUTIONS ARCHITECT, OCEAN BIOLOGIST #[address] [address] Frequency of micturition Social History [...] COVID-19? No / Unsure 2020 11:37 AM CNC MACHINIST 2ND SHIFT documented as of this encounter Plan of Treatment Upcoming Encounters Date Type Department Care Team (Late st Contact Info) Description 03/19/2025 2:00 PM CNC MACHINIST 2ND SHIFT Office Visit [facility] Medical [facility] - Endocrinology [facility] #[address] [place] [address] Annel Rod MD #2 [facility] [address] [place] [address] 05/29/2025 1:30 PM CNC MACHINIST 2ND SHIFT Office Visit [facility] - Family Medicine [facility] #[address] [place] [address] Justen Gale MD #2 [facility] [address] [place] [address] documented as of this encounter Procedures Procedure Name Priority Date/Time Associated Diagnosis Comments URINALYSIS REFLEX IF INDICATED BY ABNORMAL RESULTS Routine 06/05/2020 4:45 PM CNC MACHINIST 2ND SHIFT Frequency of micturition documented in this encounter Results * (ABNORMAL) URINALYSIS REFLEX IF INDICATED BY ABNORMAL RESULTS (06/05/2020 4:45 PM CNC MACHINIST 2ND SHIFT) SPECIFIC GRAVITY 1.020 1.003 - 1.030 06/05/2020 5:19 PM CNC MACHINIST 2ND SHIFT [facility] URINE PH 5.0 5.0 - 9.0 06/05/2020 5:19 PM CNC MACHINIST 2ND SHIFT [facility] WBC ESTERASE Negative Negative 06/05/2020 5:19 PM CNC MACHINIST 2ND SHIFT [facility] NITRITE Negative Negative 06/05/2020 5:19 PM CNC MACHINIST 2ND SHIFT [facility] PROTEIN, RANDOM URINE Negative Negative 06/05/2020 5:19 PM CNC MACHINIST 2ND SHIFT [facility] URINE GLUCOSE, QUAL Negative Negative 06/05/2020 5:19 PM CNC MACHINIST 2ND SHIFT [facility] URINE KETONES Negative Negative 06/05/2020 5:19 PM CNC MACHINIST 2ND SHIFT [facility] UROBILINOGEN Normal Normal mg/dL 06/05/2020 5:19 PM CNC MACHINIST 2ND SHIFT [facility] URINE BILIRUBIN Negative Negative 5:19 PM CNC MACHINIST 2ND SHIFT [facility] URINE BLOOD 25 /uL(A) Negative leandro/ul 06/05/2020 5:19 PM CNC MACHINIST 2ND SHIFT [facility] URINALYSIS COLOR Yellow 06/05/19 5:19 PM CNC MACHINIST 2ND SHIFT [facility] URINALYSIS CLARITY Clear 06/05/2020 5:19 PM CNC MACHINIST 2ND SHIFT [facility] WBC (Urine) 0-5 Negative, 0-5 /hpf 06/05/2020 5:19 PM CNC MACHINIST 2ND SHIFT [facility] URINE RBC'S 3-5(A) Negative, 0-2 /hpf 06/05/2020 5:19 PM CNC MACHINIST 2ND SHIFT [facility] EPITHELIAL CELLS Small amount /lpf 2020 5:19 PM CNC MACHINIST 2ND SHIFT [facility] BACTERIA, URINE Few(A) Negative /hpf 06/05/2020 5:19 PM CNC MACHINIST 2ND SHIFT [facility] Urine URINE SPECIMEN / Unknown Non-Phlebotomy Collection / Unknown 06/05/2020 4:45 PM CNC MACHINIST 2ND SHIFT 06/05/2020 5:00 PM CNC MACHINIST 2ND SHIFT us Pili Elkins MOBILE SOLUTIONS ARCHITECT, OCEAN BIOLOGIST URINE ORDERABLES F inal Result [facility] #1 [place] [address] documented in this encounter Visit Diagnoses Diagnosis Frequency of micturition Urinary frequency documented in this encounter Additional Health Concerns Infection Onset Date Last Indicated Resolved Time COVID - 19 08/01/2024 08/01/2024 08/01/2024 3:20 PM CDT Respiratory Rule-Out 11/18/2024 11/18/2024 025 7:18 AM CDT Assessment Noted Time PHQ-9 Depression Total Score: 0 09/08/19 19 1:00 PM CDT documented as of this encounter Care Teams Stage Set Designer Relationship Specialty Start Date End Date Justen Gale MD #2 [facility] [address] [place] [address] PCP - General Family Medicine 10/17/17 David Roberts, MOBILE SOLUTIONS ARCHITECT, OCEAN BIOLOGIST #2 [place] [address] Nurse Practitioner Advanced Practice Nurse 01/31/22 Annel Rod MD #2 [facility] [address] [place] [address] Consulting Physician Endocrinology 07/01/22 documented as of this encounter
--- OUTSIDE RECORDS SUMMARY | 2025-02-03 14:18 | XMS_ITS | Encounter Summary ---
Author Organization [facility] Address [address] [place] [address] Phone Care Team Providers Care Education Professional Name Role Phone Justen Gale MD Primary Care Provider [phone] David Roberts APRN, TALENT ACQUISITION ADMINISTRATOR Unavailable [phone] Annel Rod MD Unavailable Reason for Visit * Reason Comments Medication Refill Encounter Details Date Type Department Care Team (Late st Contact Info) Description 03/05/2023 Refill [facility] #2 [place] [address] Pili Elkins, ZAMZAM, TALENT ACQUISITION ADMINISTRATOR #[address] [address] Medication Refill Social History Tobacco [...] discontinued on 10/19/2022 by Justen Gale MD EMS SECURITY CONSULTANT documented in this encounter Plan of Treatment Upcoming Encounters Date Type Department Care Team (Late st Contact Info) Description 03/19/2025 2:00 PM SYSTEMS SECURITY CONSULTANT Office Visit [facility] - Endocrinology [facility] #2 [place] [address] Annel Rod MD #2 [facility] [address] [place] [address] 05/29/2025 1:30 PM SYSTEMS SECURITY CONSULTANT Office Visit [facility] - Family Medicine [facility] #2 [place] [address] Justen Gale MD #2 [facility] [address] [place] [address] documented as of this encounter Visit Diagnoses [...] documented as of this encounter Care Teams Education Professional Relationship Specialty Start Date End Date Justen Gale MD #2 [facility] [address] [place] [address] PCP - General Family Medicine 10/17/17 David Roberts APRN, TALENT ACQUISITION ADMINISTRATOR #2 [place] [address] Nurse Practitioner Advanced Practice Nurse 01/31/22 Annel Rod MD #[address] [address] Consulting Physician Endocrinology 07/01/22 documented as of this encounter
--- OUTSIDE RECORDS SUMMARY | 2025-02-03 14:18 | XMS_ITS | Clinical Summary ---
Author Organization [facility] Address [address] [place] [address] Phone Care Team Providers Care Professor Of Legal Studies Name Role Phone Justen Gale MD Primary Care Provider [phone] Allergies Active Allergy Reactions Criticality Noted Date [...] CHOLESTEROL ANNUAL 09/28/2018 09/28/2017 OSTEOPOROSIS SCREENING 2021 INFLUENZA VACCINE (#1) 2024 2, 05/04/2021, 02/03/2020, Additional history exists DIABETES HBA1C Q 6 MONTHS 07/02/20252024, 12/25/2022, 10/31/2021, Additional history exists DTAP/TDAP/TD VACCINES (2 - [...] 09/29/2017 10:28 AM CDT [facility] EST. AVG GLUCOSE, A1C 186 mg/dL 09/29/2017 10:28 AM CDT [facility] Blood Venipuncture / Unknown 09/28/2017 8:41 PM CDT 09/28/2017 8:46 PM CDT Narrative [facility] - 09/29/2017 10:28 AM CDT HGB A1C INTERPRETATION NORMAL: <5.7% PRE-DIABETES: 5.7 - 6.4% DIABETES: 6.5% OR GREATER us Francisco Castaneda MD CHEMISTRY ORDERABLES Final Resul t [facility]# [id number] [address] [place] [address] * (ABNORMAL) LIPID PANEL (09/28/2017 8:41 PM CDT) CHOLESTEROL 174 <200 mg/dL 09/30/2017 2:45 AM CDT [facility] TRIGLYCERIDE 109 <150 mg/dL 09/30/2017 2:45 AM CDT [facility] HDL 45 40 - 59 mg/dL 09/30/2017 2:45 AM CDT [facility] LDL CALCULATED 107(H) <100 mg/dL 09/30/2017 2:45 AM CDT [facility] NON-HDL CHOLESTEROL 129 <130 mg/dL 09/30/2017 2:45 AM CDT [facility] Blood Venipuncture / Unknown 09/28/2017 8:41 PM CDT 09/28/2017 8:46 PM CDT Narrative [facility] - 09/30/2017 2:45 AM [...] Castaneda MD CHEMISTRY ORDERABLES Final Resul t [facility] CLIA# [id number] [address] [place] [address] from Last 3 Months or Most Recently Relevant to Health Maintenance Insurance Advance Directives For more information, please contact: [phone] * Full Code (Latest Code Status on File) Date Activated Date Inactivated Comments 09/29/2017 7:45 AM 09/30/2017 9:14 PM * Full Code Date Activated Date Inactivated Comments 09/29/2017 1:25 AM 09/29/2017 7:45 AM Care Teams Professor Of Legal Studies Relationship Specialty Start Date End Date Justen Gale MD [address] [facility] [address] [place] [phone] PCP - General Cardiovascular Disease 09/14/17
--- OUTSIDE RECORDS SUMMARY | 2025-02-03 14:18 | XMS_ITS | Encounter Summary ---
Author Organization [facility] Address [address] [place] [address] Phone Care Team Providers Care Summer Clerk Name Role Phone Justen Gale MD Primary Care Provider [phone] David Roberts APRN, DELIVERY LEAD Unavailable [phone] Annel Rod MD Unavailable Reason for Visit * Reason Comments Medication Refill Encounter Details Date Type Department Care Team (Late st Contact Info) Description 03/13/2021 Refill [facility] [address] [place] [address] Justen Gale MD #[address] [address] Medication Refill Social History Tobacco [...] COVID-19? No / Unsure 03/02/2021 5:05 PM RECEIVING BARN CUSTODIAN documented as of this encounter Plan of Treatment Upcoming Encounters Date Type Department Care Team (Late st Contact Info) Description 03/19/2025 2:00 PM RECEIVING BARN CUSTODIAN Office Visit [facility] - Endocrinology [facility] #2 [place] [address] Annel Rod MD #[address] [address] 05/29/2025 1:30 PM RECEIVING BARN CUSTODIAN Office Visit [facility] Family Medicine [facility] #2 [place] [address] Justen Gale MD #[address] [address] documented as of this encounter Visit Diagnoses Not on filedocumented in this encounter Additional Health Concerns Infection Onset Date Last Indicated Resolved Time COVID - 19 08/01/2024 08/01/2024 08/01/2024 3:20 PM CDT Respiratory Rule-Out 11/18/2024 11/18/2024 025 7:18 AM CDT Assessment Noted Time PHQ-9 Depression Total Score: 0 07/21/19 21 3:00 PM CDT documented as of this encounter Care Teams Summer Clerk Relationship Specialty Start Date End Date Justen Gale MD #[address] [address] PCP - General Family Medicine 10/17/17 David Roberts, CREDIT CHARGE AUTHORIZER, DELIVERY LEAD #2 [place] [address] Nurse Practitioner Advanced Practice Nurse 01/31/22 Annel Rod MD #[address] [phone] Consulting Physician Endocrinology 07/01/22 documented as of this encounter
--- OUTSIDE RECORDS SUMMARY | 2025-02-03 14:18 | XMS_ITS | Encounter Summary ---
Author Organization [facility] Address [address] [place] [address] Phone Care Team Providers Care Director Of Strategic Communications Name Role Phone Justen aGle MD Primary Care Provider [phone] David Roberts APRN, OPERATIONS STAFF SPECIALIST SECURITY Unavailable [phone] Annel Rod MD Unavailable Reason for Visit * Reason Comments Medication Refill Encounter Details Date Type Department Care Team (Late st Contact Info) Description 08/30/2022 Refill [facility] #2 [place] [address] Justne Gale MD #[address] [address] Medication Refill Social History Tobacco Use Types [...] Office Visit Pili Elkins APRN, NETTA [facility] 05/02/22 [facility] Office Visit Pili Elkins APRN, NETTA [facility] 01/03/22 Office Visit Dannielle Berg PAC [facility] 12/07/21 Office Visit Pili Elkins APRN, NETTA [facility] 11/09/21 Office Visit Pili Elkins APRN, NETTA [facility] [place] 10/08/21 Office Visit Angelito Alegria APRN, NETTA [facility] 08/30/21 Office Visit Justen [facility] Showing recent visits within past 365 days and meeting all other requirements Future Appointments No visits were found meeting these conditions. Showing future appointments within next 90 days and meeting all other requirements documented in this encounter Plan of Treatment Upcoming Encounters Date Type Department Care Team (Late st Contact Info) Description 03/19/2025 2:00 PM SKIN TANNER Office Visit [facility] - [facility] - [place] #[address] [place] [address] Annel Rod MD [address] [address] 05/29/2025 1:30 PM SKIN TANNER [facility] - [facility] #[address] [place] [address] Justen Gale MD #[address] [address] documented as of this encounter Visit Diagnoses Not on filedocumented in this encounter Additional Health Concerns Infection Onset Date Last Indicated Resolved Time COVID - 19 08/01/2024 08/01/2024 08/01/2024 3:20 PM CDT Respiratory Rule-Out 11/18/2024 11/18/2024 025 7:18 AM CDT Assessment Noted Time PHQ-9 Depression Total Score: 0 07/21/19 21 3:00 PM CDT documented as of this encounter Care Teams Director Of Strategic Communications Relationship Specialty Start Date End Date Justen Gale MD #[address] [address] PCP - General Family Medicine 10/17/17 David Roberts, DIRECTOR ACCOUNT MANAGEMENT, OPERATIONS STAFF SPECIALIST SECURITY #2 [place] [address] Nurse Practitioner Advanced Practice Nurse 01/31/22 Annel Rod MD [address] [address] Consulting Physician Endocrinology 07/01/22 documented as of this encounter
--- OUTSIDE RECORDS SUMMARY | 2025-02-03 14:18 | XMS_ITS | Encounter Summary ---
Author Organization [facility] Address [address] [place] [address] Phone Care Team Providers Care Bench Mover Name Role Phone Justen Gale MD Primary Care Provider [phone] David Roberts APRN, WOOD FLOOR LAYER Unavailable [phone] Annel Rod MD Unavailable Reason for Visit * Reason Comments Medication Refill Encounter Details Date Type Department Care Team (Late st Contact Info) Description 07/06/2023 Refill [facility] #2 [place] [address] Justen Gale MD #[address] [address] Medication Refill Social History Tobacco Use Types [...] AM CDT Medication(s) refilled and signed per [facility] Chronic Medication Refill Standing Order for Pediatricand [...] st Contact Info) Description 03/19/2025 2:00 PM FIRST LEVELER Office Visit [facility] - Endocrinology - [place] #[address] [place] [address] Annel Rod MD #[address] [address] 05/29/2025 1:30 PM FIRST LEVELER Office Visit [facility] - Family [facility] #[address] [place] [address] Justen Gale MD #2 [facility] [address] [place] [address] documented as of this encounter Visit Diagnoses Not on filedocumented in this encounter Additional Health Concerns Infection Onset Date Last Indicated Resolved Time COVID - 19 08/01/2024 08/01/2024 08/01/2024 3:20 PM CDT Respiratory Rule-Out 11/18/2024 11/18/2024 025 7:18 AM CDT Assessment Noted Time PHQ-9 Depression Total Score: 8 01/18/20 23 2:24 PM CDT documented as of this encounter Care Teams Bench Mover Relationship Specialty Start Date End Date Justen Gale MD #[address] [address] PCP - General Family Medicine 10/17/17 David Roberts APRN, WOOD FLOOR LAYER #[address] [place] [address] Nurse Practitioner Advanced Practice Nurse 01/31/22 Annel Rod MD #[address] [address] Consulting Physician Endocrinology 07/01/22 documented as of this encounter
--- OUTSIDE RECORDS SUMMARY | 2025-02-03 14:18 | XMS_ITS | Encounter Summary ---
Author Organization [facility] Healthcare Address [address] [place] [address] Care Team Providers Care Dynamometer Tester Name Role Phone Liu Jerez MD Unavailable Albert Corbin MD Unavailable Justen Gale MD Primary Care Provider Khris Arthur MD Unavailable [phone] Ko Melendez MD Unavailable John Paul Moyer MD Unavailable Annel Rod MD Unavailable Anali MARSHALL MD, Carlos M. Unavailable Encounter Details Date Type Department Care Team (Late st Contact Info) Description 12/17/2024 [facility] Subsequent Outreach [facility] [address] [place] [address] Madelyn Cruz, ASSEMBLER [place] [address] [place] [address] Social History Tobacco Use Types Packs/Day [...] a nursing home (including now)? No 05/24/2024 Social Connection and [...] in a nursing home (including now)? No 12/03/2024 [facility] Utilities [...] file Legal Sex Female 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 ESTHETICIAN Gender Identity Not on file Sexual Orientation Not on file documented as of this encounter Plan of Treatment Not on file documented as of this encounter Visit Diagnoses Not on filedocumented in this encounter Care Teams Dynamometer Tester Relationship Specialty Start Date End Date Justen Gale MD 2 [facility] [address] [place] [address] PCP - General 10/09/17 Liu Jerez MD Consulting Physician Gastroenterology 07/28/17 [place] [address] [facility] [address] [place] [address] Consulting Physician Pulmonary Disease 08/03/17 Khris Arthur MD [address] [facility] [address] [place] [address] Medical Oncologist/Needle Loom Operator Helper Medical Oncology 10/23/17 [place] [address] [address] [facility] [address] [place] [address] Surgeon Orthopedic Surgery 10/23/17 [place] [address] [address] Consulting Physician Pain Management 10/23/17 [place] [address] [facility] [address] [place] [address] Referring Physician General Surgery 01/26/18 [place] [address] [facility] [address] [place] [address] Consulting Physician Neurology 01/26/18 documented as of this encounter
--- OUTSIDE RECORDS SUMMARY | 2025-02-03 14:18 | XMS_ITS | Patient Health Record ---
Author Organization [facility] Address [address] [place] [address] Care Team Providers Care Vice President Digital Strategist Name Role Phone Yo DURÁN, Lavonne Primary Care Provider Unavail able Reason For Referral No Information Plan Of Treatment No Information Insurance Providers Payer Name Payer Address Payer Phone Subscriber Number Group Number Insured Name Patient Relationship to Insured Coverage Start Date Coverage End Date [facility] [employer] [address] [address] [place], [place] [id number] Karly Marques Self - patient is the insured
--- OUTSIDE RECORDS SUMMARY | 2025-02-03 14:18 | XMS_ITS | Encounter Summary ---
Author Organization [facility] Address [address] [place] [address] Phone Care Team Providers Care Jumpbasting Lining Baster Name Role Phone Justen Gale MD Primary Care Provider [phone] David Roberts APRN, NUT BLANKER OPERATOR Unavailable [phone] Annel Rod MD Unavailable Reason for Visit * Reason Comments Medication Refill Encounter Details Date Type Department Care Team (Late st Contact Info) Description 07/14/2022 Refill [facility] #2 [place] [address] Justen Gale MD #[address] [address] Medication Refill Social History Tobacco Use Types [...] st Contact Info) Description 03/19/2025 2:00 PM INVESTMENT BROKER Office Visit [facility] Medical Group - Endocrinology - [place] #2 [place] [address] Annel Rod MD #[address] [address] 05/29/2025 1:30 PM INVESTMENT BROKER Office Visit [facility] Medical Group - Family Medicine [facility] #2 [place] [address] Justen Gale MD #2 [facility] [address] [place] [address] documented as of this encounter Visit Diagnoses Not on filedocumented in this encounter Additional Health Concerns Infection Onset Date Last Indicated Resolved Time COVID - 19 08/01/2024 08/01/2024 08/01/2024 3:20 PM CDT Respiratory Rule-Out 11/18/2024 11/18/2024 025 7:18 AM CDT Assessment Noted Time PHQ-9 Depression Total Score: 0 07/21/19 21 3:00 PM CDT documented as of this encounter Care Teams Jumpbasting Lining Baster Relationship Specialty Start Date End Date Justen Gale MD #2 [facility] [address] [place] [address] PCP - General Family Medicine 10/17/17 David Roberts APRN, NUT BLANKER OPERATOR #2 [place] [address] Nurse Practitioner Advanced Practice Nurse 01/31/22 Annel Rod MD #2 [facility] [address] [place] [address] Consulting Physician Endocrinology 07/01/22 documented as of this encounter
--- OUTSIDE RECORDS SUMMARY | 2025-02-03 14:18 | XMS_ITS | Encounter Summary ---
Author Organization [facility] Address [address] [place] [address] Phone Care Team Providers Care Faucets Assembler Name Role Phone Justen Gale MD Primary Care Provider [phone] David Roberts APRN, STUDENT ASSISTANCE COUNSELOR Unavailable [phone] Annel Rod MD Unavailable Reason for Visit * Reason Comments Medication Refill Encounter Details Date Type Department Care Team (Late st Contact Info) Description 08/07/2023 Refill [facility] - Endocrinology - [place] #2 [place] [address] Annel Rod MD #[address] [address] Medication Refill Social History Tobacco [...] AM CDT Medication(s) refilled and signed per [facility] Chronic Medication Refill Standing Order for Pediatric and Adult Patients. documented in this encounter Plan of Treatment Upcoming Encounters Date Type Department Care Team (Late st Contact Info) Description 03/19/2025 2:00 PM CAR PACKER Office Visit [facility] Medical [facility] - Endocrinology - [place] #2 [place] [address] Annel Rod MD #[address] [address] 05/29/2025 1:30 PM CAR PACKER Office Visit [facility] Medical Group - Family Medicine - [place] #2 [place] [address] Justen Gale MD #[address] [address] documented as of this encounter Visit Diagnoses Not on filedocumented in this encounter Additional Health Concerns Infection Onset Date Last Indicated Resolved Time COVID - 19 08/01/2024 08/01/2024 08/01/2024 3:20 PM CDT Respiratory Rule-Out 11/18/2024 11/18/2024 025 7:18 AM CDT Assessment Noted Time PHQ-9 Depression Total Score: 8 01/18/20 23 2:24 PM CDT documented as of this encounter Care Teams Faucets Assembler Relationship Specialty Start Date End Date Justen Gale MD #2 [facility] [address] [place] [address] PCP - General Family Medicine 10/17/17 David Roberts APRN, STUDENT ASSISTANCE COUNSELOR #2 [place] [address] Nurse Practitioner Advanced Practice Nurse 01/31/22 Annel Rod MD #[address] [phone] Consulting Physician Endocrinology 07/01/22 documented as of this encounter
--- OUTSIDE RECORDS SUMMARY | 2025-02-03 14:18 | XMS_ITS | Encounter Summary ---
Author Organization [facility] Address [address] [place] [address] Phone Care Team Providers Care Green Coffee Blender Name Role Phone Justen Gale MD Primary Care Provider [phone] David Roberts APRN, AUXILIARY PLANT OPERATOR Unavailable [phone] Annel Rod MD Unavailable Reason for Visit * Reason Onset Date Comments Sore Throat 06/29/2020 Encounter Details Date Type Department Care Team (Late st Contact Info) Description 06/29/2020 Telephone [facility] - [facility] [place] #[address] [place] [address] Justen Gale MD #[address] [address] Sore Throat Social History Tobacco Use Types [...] COVID-19? No / Unsure 06/29/2020 8:43 AM BLOCKER POLISHING documented as of this encounter Miscellaneous Notes * Telephone Encounter - Gail Lucero RN - 06/29/2020 3:53 PM CST Attempted to call mailbox is full. Pt does not need testing KER POLISHING * Telephone Encounter - Vince Hermosillo MD - 06/29/2020 3:13 PM CST No covid testing needed. If the er thought that it was warranted then they would have done this. KER POLISHING * Telephone Encounter - Marlys Sorensen RN - 06/29/2020 8:36 AM CST Patient calling. Patient is calling to schedule Hospital/ED/Prompt-Care follow up appointment. Hospital/ED/Prompt-Care Site: [facility] ED Records Requested: Yes Reason for [...] f/up and yearly PAP appointments? Please advise. KER POLISHING documented in this encounter Plan of Treatment Upcoming Encounters Date Type Department Care Team (Late st Contact Info) Description 03/19/2025 2:00 PM BLOCKER POLISHING Office Visit [facility] Medical Group - Endocrinology - [place] #2 [place] [address] Annel Rod MD #2 [facility] [address] [place] [address] 05/29/2025 1:30 PM BLOCKER POLISHING Office Visit [facility] Medical Group - Family Medicine [facility] #2 [place] [address] Justen Gale MD #2 [facility] [address] [place] [address] documented as of this encounter Visit Diagnoses Not on filedocumented in this encounter Additional Health Concerns Infection Onset Date Last Indicated Resolved Time COVID - 19 08/01/2024 08/01/2024 08/01/2024 3:20 PM CDT Respiratory Rule-Out 11/18/2024 11/18/2024 025 7:18 AM CDT Assessment Noted Time PHQ-9 Depression Total Score: 0 09/08/19 19 1:00 PM CDT documented as of this encounter Care Teams Green Coffee Blender Relationship Specialty Start Date End Date Justen Gale MD #2 [facility] [address] [place] [address] PCP - General Family Medicine 10/17/17 David Roberts, PHYSICS PROFESSOR, AUXILIARY PLANT OPERATOR #2 [place] [address] Nurse Practitioner Advanced Practice Nurse 01/31/22 Annel Rod MD #2 [facility] [address] [place] [address] Consulting Physician Endocrinology 07/01/22 documented as of this encounter
--- OUTSIDE RECORDS SUMMARY | 2025-02-03 14:18 | XMS_ITS | Encounter Summary ---
Author Organization [facility] Address [address] [place] [address] Phone Care Team Providers Care Psychiatric Nurse Practitioner Name Role Phone Justen Gale MD Primary Care Provider [phone] David Roberts APRN, ALMOND CUTTING MACHINE TENDER Unavailable [phone] Annel Rod MD Unavailable Reason for Visit * Reason Comments Medication Refill Encounter Details Date Type Department Care Team (Late st Contact Info) Description 04/13/2023 Refill [facility] - Endocrinology - [place] #2 [place] [address] Annel Rod MD #[address] [address] Medication Refill Social History [...] Jennifer Wang, RN - 04/14/2023 10:00 AM PRIMER INSERTING MACHINE OPERATOR Requested Prescriptions Pending Prescriptions Disp Refills ??? Continuous Blood Gluc Sensor (FreeStyle Eileen 2 Sensor) Misc [Pharmacy Med Name: FREESTYLE EILEEN 2 SENSOR] 6 Each 1 Sig: APPLY 1 SENSOR AND WEAR FOR 14 DAYS TO CHECK BLOOD SUGAR Next appt: 05/30/2023 ER INSERTING MACHINE OPERATOR documented in this encounter Plan of Treatment Upcoming Encounters Date Type Department Care Team (Late st Contact Info) Description 03/19/2025 2:00 PM PRIMER INSERTING MACHINE OPERATOR Office Visit [facility] Medical Group - Endocrinology - [place] [address] [place] [address] Annel Rod MD #2 [facility] [address] [place] [address] 05/29/2025 1:30 PM PRIMER INSERTING MACHINE OPERATOR Office Visit [facility] - Family Medicine [facility] #2 [place] [address] Justen Gale MD #2 [facility] [address] [place] [address] documented as of this encounter Visit Diagnoses Not on filedocumented in this encounter Additional Health Concerns Infection Onset Date Last Indicated Resolved Time COVID - 19 08/01/2024 08/01/2024 08/01/2024 3:20 PM CDT Respiratory Rule-Out 11/18/2024 11/18/2024 025 7:18 AM CDT Assessment Noted Time PHQ-9 Depression Total Score: 8 01/18/20 23 2:24 PM CDT documented as of this encounter Care Teams Psychiatric Nurse Practitioner Relationship Specialty Start Date End Date Justen Gale MD #2 [facility] [address] [place] [address] PCP - General Family Medicine 10/17/17 David Roberts, PARK RANGER, ALMOND CUTTING MACHINE TENDER #2 [place] [address] Nurse Practitioner Advanced Practice Nurse 01/31/22 Annel Rod MD #2 [facility] [address] [place] [address] Consulting Physician Endocrinology 07/01/22 documented as of this encounter
--- OUTSIDE RECORDS SUMMARY | 2025-02-03 14:18 | XMS_ITS | Encounter Summary ---
Author Organization [facility] Address [address] [place] [address] Phone Care Team Providers Care Literacy Coordinator Name Role Phone Justen Gale MD Primary Care Provider [phone] David Roberts APRN, RAILS DEVELOPER Unavailable [phone] Annel Rod MD Unavailable Reason for Visit * Reason Comments Medication Refill Encounter Details Date Type Department Care Team (Late st Contact Info) Description 10/24/2022 Refill [facility] Family Medicine [facility] #2 [place] [address] Pili Elkins, ZAMZAM, RAILS DEVELOPER #[address] [address] Medication Refill Social History [...] st Contact Info) Description 03/19/2025 2:00 PM LIVESTOCK BROKER Office Visit [facility] Endocrinology [facility] #2 [place] [address] Annel Rod MD #[address] [address] 05/29/2025 1:30 PM LIVESTOCK BROKER Office Visit [facility] Family Medicine [facility] #2 [place] [address] Justen Gale MD #2 [facility] [address] [place] [address] documented as of this encounter Visit Diagnoses [...] documented as of this encounter Care Teams Literacy Coordinator Relationship Specialty Start Date End Date Justen Gale MD #[address] [address] PCP - General Family Medicine 10/17/17 David Roberts, CHECK SCALER, RAILS DEVELOPER #2 [place] [address] Nurse Practitioner Advanced Practice Nurse 01/31/22 Annel Rod MD #[address] [address] Consulting Physician Endocrinology 07/01/22 documented as of this encounter
--- OUTSIDE RECORDS SUMMARY | 2025-02-03 14:19 | XMS_ITS | Encounter Summary ---
Author Organization [facility] Address [address] [place] [address] Phone Care Team Providers Care Abrasive Sawyer Name Role Phone Justen Gale MD Primary Care Provider [phone] David Roberts APRN, PHARMACOGNOSIST Unavailable [phone] Annel Rod MD Unavailable Reason for Visit * Reason Onset Date Comments Advice Only 11/21/2023 Encounter Details Date Type Department Care Team (Late st Contact Info) Description 11/21/2023 Telephone [facility] [address] [place] [address] Justen Gale MD #[address] [address] Advice Only Social History Tobacco Use Types [...] PM CDT RFC: Alejandra from [facility] is calling to state that patient is listed as being a diabteic but is not on a statin. Please call Alejandra (relationship to patient n/a) back regarding above referenced patient. Patient's Provider is Justen Gale MD . documented in this encounter Plan of Treatment Upcoming Encounters Date Type Department Care Team (Late st Contact Info) Description 03/19/2025 2:00 PM PROFESSOR OF BUSINESS ADMINISTRATION Office Visit [facility] Medical Group - Endocrinology - [place] #2 [place] [address] Annel Rod MD #[address] [address] 05/29/2025 1:30 PM PROFESSOR OF BUSINESS ADMINISTRATION Office Visit [facility] - Family Medicine - [place] #2 [place] [address] Justen Gale MD #2 [facility] [address] [place] [address] documented as of this encounter Visit Diagnoses Not on filedocumented in this encounter Additional Health Concerns Infection Onset Date Last Indicated Resolved Time COVID - 19 08/01/2024 08/01/2024 08/01/2024 3:20 PM CDT Respiratory Rule-Out 11/18/2024 11/18/2024 025 7:18 AM CDT Assessment Noted Time PHQ-9 Depression Total Score: 8 01/18/20 23 2:24 PM CDT documented as of this encounter Care Teams Abrasive Sawyer Relationship Specialty Start Date End Date Justen Gale MD #[address] [address] PCP - General Family Medicine 10/17/17 David Roberts APRN, PHARMACOGNOSIST #2 [place] [address] Nurse Practitioner Advanced Practice Nurse 01/31/22 Annel Rod MD #[address] [address] Consulting Physician Endocrinology 07/01/22 documented as of this encounter
--- OUTSIDE RECORDS SUMMARY | 2025-02-03 14:19 | XMS_ITS | Encounter Summary ---
Author Organization [facility] Address [address] [place] [address] Phone Care Team Providers Care Learning Consultant Name Role Phone Justen Gale MD Primary Care Provider [phone] David Roberts APRN, MATTRESS RENOVATOR Unavailable [phone] Annel Rod MD Unavailable Reason for Visit * Reason Onset Date Comments Advice Only 08/19/2024 Follow-up 08/19/2024 Encounter Details Date Type Department Care Team (Late st Contact Info) Description 08/19/2024 Telephone [facility] Medical Group - [facility] [place] #2 [place] [address] Justen Gale MD #[address] [address] Advice Only; Follow-up Social History Tobacco Use Types Packs/Day Years Used Date Smoking Tobacco: Never Smokeless Tobacco: Never Alcohol Use Standard Drinks/Week Comments No 0 (1 standard drink = 0.6 oz pur e alcohol) [facility] Utilities Answer Date Recorded In the [...] you attend chur ch or rastafari services? More than 4 times [...] 0 07/23 [facility] - Occupational Stress Questionnaire Answer Date [...] in a senior living (including now)? No 08/06/2024 Education Answer Date [...] visit * Telephone Encounter - Angelito Alegria, REEL ASSEMBLER, MATTRESS RENOVATOR - 08/19/2024 9:04 AM CDT Forwarding * Telephone Encounter - Isaura Weiss RN - 08/19/2024 8:37 AM CDT Situation: Strep throat follow up Background: Patient contacting PCP office. Patient was seen in ED on 08/09 and 08/12 in [place] (records in chart). Diagnosed with strep. Assessment: [...] CDT Symptom: Sore Throat Outcome: Transfer to commissary production supervisor queue Reason: Caller denied all higher acuity questions The caller accepted this outcome. Caller Denied: * Struggling for each breath (severe trouble breathing) * Can't swallow saliva (drooling) documented in this encounter Plan of Treatment Upcoming Encounters Date Type Department Care Team (Late st Contact Info) Description 03/19/2025 2:00 PM AUDITING CONTROL CLERK Office Visit [facility] - Endocrinology - [place] #2 [place] [address] Annel Rod MD #[address] [address] 05/29/2025 1:30 PM AUDITING CONTROL CLERK Office Visit [facility] - Family [facility] #2 [place] [address] Justen Gale MD #2 [facility] [address] [place] [address] documented as of this encounter Visit Diagnoses Not on filedocumented in this encounter Additional Health Concerns Infection Onset Date Last Indicated Resolved Time Respiratory Rule-Out 11/18/2024 11/18/2024 025 7:18 AM CDT Assessment Noted Time PHQ-9 Depression Total Score: 0 08/02/19 25 1:09 PM CDT documented as of this encounter Care Teams Learning Consultant Relationship Specialty Start Date End Date Justen Gale MD #[address] [address] PCP - General Family Medicine 10/17/17 David Roberts, REEL ASSEMBLER, MATTRESS RENOVATOR #2 [place] [address] Nurse Practitioner Advanced Practice Nurse 01/31/22 Annel Rod MD #[address] [address] Consulting Physician Endocrinology 07/01/22 documented as of this encounter
--- OUTSIDE RECORDS SUMMARY | 2025-02-03 14:19 | XMS_ITS | Encounter Summary ---
Author Organization [facility] Address [address] [place] [address] Phone Care Team Providers Care Mechanical Striper Name Role Phone Justen Gale MD Primary Care Provider David Roberts APRN, BRILLIANDEER LOOPER Unavailable [phone] Annel Rod MD Unavailable Reason for Visit * Reason Comments Medication Refill Encounter Details Date Type Department Care Team (Late st Contact Info) Description 02/07/2020 Refill [facility] [address] [place] [address] Justen Gale MD #[address] [address] Medication Refill Social History Tobacco Use Types [...] st Contact Info) Description 03/19/2025 2:00 PM LABORER AIRPORT MAINTENANCE Office Visit [facility] Medical Group - Endocrinology - [place] #2 [place] [address] Annel Rod MD #2 [facility] [address] [place] [address] 05/29/2025 1:30 PM LABORER AIRPORT MAINTENANCE Office Visit [facility] Medical [facility] - Family Medicine - [place] #2 [place] [address] Justen Gale MD #2 [facility] [address] [place] [address] documented as of this encounter Visit Diagnoses Not on filedocumented in this encounter Additional Health Concerns Infection Onset Date Last Indicated Resolved Time COVID - 19 08/01/2024 08/01/2024 08/01/2024 3:20 PM CDT Respiratory Rule-Out 11/18/2024 11/18/2024 025 7:18 AM CDT Assessment Noted Time PHQ-9 Depression Total Score: 0 09/08/19 19 1:00 PM CDT documented as of this encounter Care Teams Mechanical Striper Relationship Specialty Start Date End Date Justen Gale MD #2 [facility] [address] [place] [address] PCP - General Family Medicine 10/17/17 David Roberts APRN, BRILLIANDEER LOOPER #2 [place] [address] Nurse Practitioner Advanced Practice Nurse 01/31/22 Annel Rod MD #[address] [address] Consulting Physician Endocrinology 07/01/22 documented as of this encounter
--- OUTSIDE RECORDS SUMMARY | 2025-02-03 14:19 | XMS_ITS | Encounter Summary ---
Author Organization [facility] Address [address] [place] [address] Phone Care Team Providers Care Pilot Can Router Name Role Phone Justen Gale MD Primary Care Provider [phone] David Roberts APRN, MEDICAL ASSISTANT FLOAT Unavailable [phone] Annel Rod MD Unavailable Reason for Visit * Reason Onset Date Comments Breathing Problem 08/07/2024 Muscle Pain 08/07/2024 Encounter Details Date Type Department Care Team (Late st Contact Info) Description 08/07/2024 Nurse Triage [facility] [address] [place] [address] Justen Gale MD #[address] [address] Breathing Problem; Muscle Pain Social History Tobacco Use Types Packs/Day Years Used Date Smoking Tobacco: Never Smokeless Tobacco: Never Alcohol Use Standard Drinks/Week Comments No 0 (1 standard drink = 0.6 oz pur e alcohol) [facility] Utilities Answer Date Recorded In the [...] you attend chur ch or gnosticist services? More than 4 times per year [...] Total Score - Questions 1-9 0 07/23 [facility] [...] this was discussed with the front end java developer and provider was to be [...] Encouraged caller to bring cell phone and shoe puller to contact EMS 911 if symptoms [...] (e.g., disoriented, slurred speech) Protocols used: Breathing [id number] * Telephone Encounter - Neha Tomlinson - 08/07/2024 1:30 PM CDT Symptoms: Altered Mental Status, Body Aches, Breathing Trouble Outcome: Warm transfer to an emergent RN NOW! Reason: Trouble walking The caller accepted this outcome. documented in this encounter Plan of Treatment Upcoming Encounters Date Type Department Care Team (Late st Contact Info) Description 03/19/2025 2:00 PM STRAPPER Office Visit [facility] - Endocrinology - [place] #2 [place] [address] Annel Rod MD #2 [facility] [address] [place] [address] 05/29/2025 1:30 PM STRAPPER Office Visit [facility] Medical Group - Family Medicine - [place] #2 [place] [address] Justen Gale MD #2 [facility] [address] [place] [address] documented as of this encounter Visit Diagnoses Not on filedocumented in this encounter Additional Health Concerns Infection Onset Date Last Indicated Resolved Time Respiratory Rule-Out 11/18/2024 11/18/2024 025 7:18 AM CDT Assessment Noted Time PHQ-9 Depression Total Score: 0 08/02/19 25 1:09 PM CDT documented as of this encounter Care Teams Pilot Can Router Relationship Specialty Start Date End Date Justen Gale MD #2 [facility] [address] [place] [address] PCP - General Family Medicine 10/17/17 David Roberts APRN, MEDICAL ASSISTANT FLOAT #2 [place] [address] Nurse Practitioner Advanced Practice Nurse 01/31/22 Annel Rod MD #2 [facility] [address] [place] [address] Consulting Physician Endocrinology 07/01/22 documented as of this encounter
--- OUTSIDE RECORDS SUMMARY | 2025-02-03 14:19 | XMS_ITS | Encounter Summary ---
Author Organization [facility] Address [address] [place] [address] Phone Care Team Providers Care Picture Painter Name Role Phone Liu Jerez MD Unavailable Albert Corbin MD Unavailable [phone] Justen Gale MD Primary Care Provider Khris Arthur MD Unavailable [phone] Ko Melendez MD Unavailable [phone] John Paul Moyer MD Unavailable [phone] Annel Rod MD Unavailable Anali MARSHALL MD, Carlos M. Unavailable [phone] Encounter Details Date Type Department Care Team [...] on file Legal Sex Female 12:24 AM SUPPORT SERVICES SPECIALIST Gender Identity Not on file [...] COVID: Recovered 02/10/2022 02/10/2022 06/10/2022 3:05 AM SUPPORT SERVICES SPECIALIST Exposure, COVID-19 Comment:Added automatically based on COVID19 lab answers indicating exposure risk 02/11/2022 02/11/2022 02/15/2022 9:06 AM C DT COVID: Suspected 05/14/2022 05/14/2022 05/14/2022 10:41 AM SUPPORT SERVICES SPECIALIST COVID: Suspected 06/07/2022 06/07/2022 06/07/2022 12:28 PM SUPPORT SERVICES SPECIALIST COVID: Suspected 06/21/2022 06/21/2022 06/21/2022 2:12 AM SUPPORT SERVICES SPECIALIST COVID: Suspected 10/05/2022 10/05/2022 10/05/2022 7:40 PM CDT COVID: Suspected 01/04/2024 01/04/2024 01/04/2024 10:30 PM CDT COVID: Suspected 02/14/2024 02/14/2024 02/15/2024 12:36 AM CDT COVID: Suspected 07/01/2024 07/01/2024 07/01/2024 2:53 PM CDT COVID: Suspected 07/01/2024 07/01/2024 07/02/2024 3:05 AM CDT COVID: Suspected 12/08/2024 12/08/2024 12/08/2024 1:50 AM CDT documented as of this encounter Care Teams Picture Painter Relationship Specialty Start Date End Date Justen Gale MD [address] [address] PCP - General 10/09/17 Liu Jerez MD Consulting Physician Gastroenterology 07/28/17 [place] [address] [facility] [address] [place] [address] Consulting Physician Pulmonary Disease 08/03/17 Khris Arthur MD [address] [facility] [address] [place] [address] Medical Oncologist/Printed Circuit Board Reworker Medical Oncology 10/23/17 [place] [address] [facility] [address] [place] [address] Surgeon Orthopedic Surgery 10/23/17 [place] [address] [facility] [address] [place] [address] Consulting Physician Pain Management 10/23/17 [place] [address] [facility] [address] [place] [address] Referring Physician General Surgery 01/26/18 [place] [address] [facility] [address] [place] [address] Consulting Physician Neurology 01/26/18 documented as of this encounter
--- NOTE | 2025-02-03 14:39 | PC.NURSE ---
pt to desk, states she is leaving due to wait time. advised to stay to be evaluated, adament that she is leaving. IV removed that was placed per EMS. pt advised to return if symptoms get worse, verbalized understanding
--- OUTSIDE RECORDS SUMMARY | 2025-02-03 15:50 | XMS_ITS ---
Author Organization [facility] Address [address] [place] [address] Care Team Providers Care Air Reduction Equipment Operator Name Role Phone Liu Jerez MD Unavailable Albert Corbin MD Unavailable [phone] Justen Gale MD Primary Care Provider Khris Arthur MD Unavailable [phone] Ko Melendez MD Unavailable John Paul Moyer MD Unavailable [phone] Annel Rod MD Unavailable Anali MARSHALL MD, Carlos M. Unavailable [phone] Active Problems Problem Noted Date Diagnosed Date Acute on chronic diastolic congestive heart fail ure 12/03/2024 Class 3 severe obesity due t o excess calories without serious comorbidity with body mass index (BMI) of 50.0 to 59.9 in adult 12/03/2024 Shortness of breath 12/02/2024 Urinary tract infection 05/22/2024 Assessment & Plan (05/26/2024 10:08 AM STRAIGHTENING ROLL OPERATOR): Presenting with urinary symptoms of right [...] 05/22/2024 Assessment & Plan (05/25/2024 7:52 AM STRAIGHTENING ROLL OPERATOR): Hx of breast cancer c/b DVT/bilateral [...] 05/22/2024 Assessment & Plan (05/22/2024 1:14 PM STRAIGHTENING ROLL OPERATOR): -long-standing chronic back pain -CT L [...] use of insulin ([facility]) 10/23/2017 Assessment & Plan (10/23/2017 2:06 [...] 10/13/2017 Assessment & Plan (05/22/2024 12:29 PM STRAIGHTENING ROLL OPERATOR): -Hx stage II, ER positive, HER2 [...] 08/01/2017 Assessment & Plan (05/22/2024 12:33 PM STRAIGHTENING ROLL OPERATOR): -Hx LUL -Hospital provided CPAP ordered History of DVT (deep vein thrombosis) 08/01/2017 History of pulmonary embolism 08/01/2017 Generalized weakness 07/27/2017 Dyspnea 07/27/2017 Unintentional weight loss 07/27/2017 Acute cystitis without hematuria 07/27/2017 Nausea and vomiting 07/26/2017 Overview (07/28/2017): Added automatically from request for surgery [id number] Pulmonary embolism 08/09/2016 Assessment & Plan (10/23/2017 2:05 AM CDT): On Rivaroxaban Lymphedema of left upper extremity 08/09/2016 Assessment & Plan (05/25/2024 7:53 AM STRAIGHTENING ROLL OPERATOR): S/p L axillary lymph node dissection [...] syndrome Assessment & Plan (05/22/2024 11:18 AM STRAIGHTENING ROLL OPERATOR): -continue home Requip 5mg nightly Pain of lower extremity 03/12/2013 Overview (07/29/2016): Leg pain Essential hypertension Assessment & Plan (05/23/2024 10:42 AM STRAIGHTENING ROLL OPERATOR): -Chart history of HTN but not on meds -BP elevated on admission, likely some pain contributing -Monitor closely once pain under adequate control, discussed following up with PCP for this Chronic anticoagulation Restless leg syndrome 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 Type 2 diabetes mellitus without complication Assessment & Plan (05/24/2024 1:39 PM STRAIGHTENING ROLL OPERATOR): -Last Ha1c 8.4 in 2023, repeat [...] breast, unspecified estrogen receptor status (HCC)long term care social worker (current) use 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 inhibitorsBone disorder [...]
--- OUTSIDE RECORDS SUMMARY | 2025-02-03 15:51 | XMS_ITS | Clinical Summary ---
Author Organization [facility] Address [address] [place] [address] Care Team Providers Care Post Secondary Professional Name Role Phone Justen Gale MD Primary Care Provider [phone] Source Comments [facility] Affiliates and Associated Physician Practices is amultiple site organization consisting of ambulatory clinics and hospital sitesin [place], [place], [place] and [place]. This disclosure is being madepursuant to the Care Everywhere program and may not contain all information available regarding this patient. Last updated 18.[facility] Allergies Active Allergy Reactions Criticality Noted Date [...] Gluc Sensor (FreeStyle Eileen 2 Sensor Systm) [facility] APPLY 1 SENSOR [...] daily 2024 Discontinued(C linical Decision) HYDROcodone-a cetaminophen ([place]) 10-325 MG tablet Take 1 (one) tablet [...] - 02/02/2025 2:28 PM CDT Hospital Encounter [facility] [address]W TELE [address] [place] [address] Patsy Hill MD Usman, Ahsan, MD Seleznev, Ilya, MD Hospitalist Discharge Disposition: Home or Self Care 01/30/2025 Travel 01/08/2025 Telephone [facility] [address] [place] [address] Xavier Coronado MD Scheduling 01/02/2025 12:03 PM CDT - 01/06/2025 6:32 PM CDT Hospital Encounter [facility] [address] [place] [address] Yasmin Matthew DO Brown, Micahla C, MD [...] in a mcc (including now)? No 05/16/2023 Housing Stability Vital [...] or living in a mcc (including now)? Patient declined 01/03/2025 AUDIT-C Answer [...] and heating? Not hard at all 02/01/2025 [facility] [place] of Occupat ional Health - Occupational Stress [...] living in a mcc (including now)? 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 Gender Identity Not on file Sexual [...] Description 02/04/2025 2:00 PM CDT Office Visit [facility] Health Heart & Vascular Care [facility] [place] [address] Xavier Coronado MD [address] [place] [address] [address] [place] [address] Health Maintenance Due Date Last [...] this topic Medical Devices Implanted Type Area Toy Consultant Device Identifier Shelf Expiration Date Model / Serial / Lot Lead Nrstm 60cm Penta 3mm Pdl 16 Chnl Implanted:Qt y: 1 on 09/16/2021 by Maxi Gregg MD at [facility] Right: Spine Thoracic [employer] [id number] / / Description:JJ Slnt Dura Duraseal Pg Trilysine Amine 5 Implanted:Qt y: 1 on 09/16/2021 by Maxi Gregg MD at [facility] Right: Spine Thoracic [employer] David [id number] / / Description:JJ Proclaim Plus 5 Implanted:Qt y: 1 on 02/16/2023 by Maxi Gregg MD at [facility] Left: Back Cardenas Spine [id number] 11/07/2024 3670 / [id number] / Explanted Type Area Toy Consultant Device Identifier Shelf Expiration Date Model / Serial / Lot Gntr Nrstm 1.95inx2.19in Proclaim Elt Implanted:Qty: 1 on 09/16/2021 by Maxi Gregg MD at [facility] Explanted:Qty: 1 on 10/30/2021 by Maxi Gregg MD at [facility] Right: Spine Thoracic [facility] [place] [...] - 99 mg/dL 02/02/2025 9:03 AM CDT [facility] Sodium 137 136 - 145 mmol/L 02/02/2025 9:03 AM CDT [facility] Potassium 3.5 3.5 - 5.1 mmol/L 02/02/2025 9:03 AM CDT [facility] Chloride 94(L) 98 - 107 mmol/L 02/02/2025 9:03 AM CDT [facility] CO2 30(H) 22 - 29 mmol/L 02/02/2025 9:03 AM CDT [facility] Calcium 10.0 8.4 - 10.4 mg/dL 02/02/2025 9:03 AM CDT [facility] Anion Gap 13 6 - 16 mmol/L 02/02/2025 9:03 AM CDT [facility] BUN 48(H) 7 - 26 mg/dL 02/02/2025 9:03 AM CDT [facility] Creatinine 1.10 0.50 - 1.20 mg/dL 02/02/2025 9:03 AM CDT [facility] eGFR by CKD-EPI 55(L) >=90 mL/min/1.7 3 m2 02/02/2025 9:03 AM CDT [facility] Comment:Estimated Glomerular Filtration Rate (eGFR) calculated using the CKD-EPI Creatinine Equation (2020), per the National Kidney Foundation and [place] Society of Nephrology recommendations. Blood BLOOD SPECIMEN / Unknown Lab Venipuncture / Unknown 02/02/2025 8:23 AM CDT 02/02/2025 8:38 AM CDT Darvin Parekh MD LAB - CHEMISTRY ORDERABLES Deann l Result Performing Organization Address City/[facility]/ZIP Co de Phone Number [facility] [address] [place] [address] * (ABNORMAL) GLUCOSE - POINT OF CARE (02/02/2025 7:43 AM CDT) Only the most recent of31 resultswithin the time period is included. Pathologist [facility] Glucose WB/POC 231(H) 70 - 99 mg/dL 02/02/2025 7:53 AM CDT [facility] Specimen Type Arterial/C apillary 02/02/2025 7:53 AM CDT [facility] Blood BLOOD SPECIMEN / Unknown 02/02/2025 7:43 AM CDT 02/02/2025 7:53 AM CDT Darvin Parekh MD LAB - POINT OF CARE ORDERABLES Final Result [facility] [address] [place] [address] * LIPID PROFILE (01/31/2025 3:07 AM CDT) Cholesterol 176 <200 mg/dL 01/31/2025 4:09 AM CDT [facility] Triglycerides 114 <150 mg/dL 01/31/2025 4:09 AM CDT [facility] HDL Cholesterol 60 >40 mg/dL 4:09 AM CDT [facility] LDL Calculated 93 <130 mg/dL 01/31/2025 4:09 AM CDT [facility] Comment:LDL is calculated us ing the Friedewald equation. VLDL Calculated 23 <=30 mg/dL 4:09 AM CDT [facility] Chol HDL Ratio 2.9 <4.5 01/31/2025 4:09 AM CDT [facility] LDL/HDL Ratio 1.6 <5.0 01/31/2025 4:09 AM CDT [facility] Blood BLOOD SPECIMEN / Unknown Lab Venipuncture / Unknown 01/31/2025 3:07 AM CDT 01/31/2025 3:36 AM CDT Gil Perrin MD LAB - CHEMISTRY ORDERABLES Fin al Result Performing Organization Address [facility] Co de Phone Number [facility] [address] [place] [address] * CARDIAC EKG ORDER (01/30/2025 5:05 PM CDT) Only the most recent of2 resultswithin the time period is included. Narrative 01/30/2025 5:05 PM CDT Ordered by an unspecified provider. Scanned Document CARDIAC SERVICES ORDERABLES Fin al Result * STREP A SCREEN DIRECT W RFLX STREP A CULTURE (01/30/2025 2:50 PM CDT) Strep A Rapid Negative Negative 01/30/2025 3:17 PM CDT [facility] Microbiology ENTIRE ANTERIOR SURFACE OF NECK / Unknown Collection / Unknown 01/30/2025 2:50 PM CDT 01/30/2025 3:04 PM CDT Narrative [facility] - 01/30/2025 3:17 PM CDT Test has reflexed to a Strep A culture. Jayla Bettencourt GASOLINE PLANT OPERATOR-WORKFORCE MANAGEMENT ANALYST LAB - MICROBIOLOGY ORDERABLES Final Result Performing Organization Address [facility]/ZIP Co de Phone Number [facility] [address] [place] [address] * CULTURE STREP GROUP A (01/30/2025 2:50 PM CDT) Culture Negative for beta-hemolytic Streptococcus Group A TERRANCE 01/31/2025 10:[address] [facility] Microbiology ENTIRE ANTERIOR SURFACE OF NECK / Unknown Collection / Unknown 01/30/2025 2:50 PM CDT 01/30/2025 3:04 PM CDT Jayla Bettencourt APRNBA[facility] LAB - MICROBIOLOGY ORDERABLES Final Result [facility] [address] [place] [address], [facility] [phone] * (ABNORMAL) C-REACTIVE PROTEIN (01/30/2025 8:50 AM CDT) Pathologist [facility] C-Reactive Protein 1.74(H) <=0.50 mg/dL 01/30/2025 10:00 AM CDT [facility] Blood BLOOD SPECIMEN / Unknown Lab Venipuncture / Unknown 01/30/2025 8:50 AM CDT 01/30/2025 9:16 AM CDT Jayla Bettencourt GASOLINE PLANT OPERATORBAYSTATE WING HOSP[facility] LAB - CHEMISTRY OR DERABLES Final Result Performing Organization Address City/[facility]/ZIP Co de Phone Number [facility] [address] [place] [address] * (ABNORMAL) ERYTHROCYTE SEDIMENTATION RATE (01/30/2025 8:50 AM CDT) Pathologist [facility] Erythrocyte Sedimentation Rate Automated 41(H) 0 - 30 MM/HR 01/30/2025 9:24 AM CDT [facility] Blood BLOOD SPECIMEN / Unknown Lab Venipuncture / Unknown 01/30/2025 8:50 AM CDT 01/30/2025 9:16 AM CDT Jayla Bettencourt GASOLINE PLANT OPERATORBAYSTATE W[facility] LAB - HEMATOLOGY O RDERABLES Final Result [facility] [address] [place] [address] * TROPONIN-I HIGH SENSITIVE REFLEX 1HOUR (01/30/2025 2:42 AM CDT) Only the most recent of2 resultswithin the time period is included. Troponin I High Sensitive 10 <=14 ng/L 01/30/2025 3:12 AM CDT [facility] Delta Troponin I HS 1 <6 ng/L 01/30/2025 3:12 AM CDT [facility] Blood BLOOD SPECIMEN / Unknown Venipuncture / Unknown 01/30/2025 2:42 AM CDT 01/30/2025 2:50 AM CDT Patsy Hill MD LAB - CHEMISTRY ORDERABLES Fin al Result [facility] [address] [place] [address] * XR Chest 1Vw Portable (01/30/2025 2:21 [...] 156.9 <900.0 pg/mL 01/30/2025 2:26 AM CDT [facility] Blood BLOOD SPECIMEN / Unknown Venipuncture / Unknown 01/30/2025 1:50 AM CDT 01/30/2025 1:50 AM CDT [facility] - 01/30/2025 2:26 AM CDT NT-pro-BNP [...] other findings. NT-pro-BNP is measured on the Innovandnity analyzer using chemiluminescent microparticle immunoassay (CMIA) technology. Patsy Hill MD LAB - CHEMISTRY ORDERABLES Fin al Result [facility] [address] [place] [address] * TSH REFLEX FREE T4 (01/30/2025 1:50 AM CDT) TSH 1.984 0.350 - 4.940 uIU/mL 01/30/2025 2:26 AM CDT [facility] Blood BLOOD SPECIMEN / Unknown Venipuncture / Unknown 01/30/2025 1:50 AM CDT 01/30/2025 1:50 AM CDT us Patsy Hill MD LAB - CHEMISTRY ORDERABLES Fin al Result [facility] [address] [place] [address] * (ABNORMAL) COMPREHENSIVE METABOLIC PANEL (01/30/2025 1:50 AM CDT) Only the most recent of2 resultswithin the time period is included. Glucose 359(H) 70 - 99 mg/dL 01/30/2025 2:02 AM CDT [facility] Sodium 140 136 - 145 mmol/L 01/30/2025 2:02 AM CDT [facility] Potassium 4.2 3.5 - 5.1 mmol/L 01/30/2025 2:02 AM CDT [facility] Chloride 104 98 - 107 mmol/L 01/30/2025 2:02 AM CDT [facility] CO2 25 22 - 29 mmol/L 01/30/2025 2:02 AM CDT [facility] Calcium 9.5 8.4 - 10.4 mg/dL 01/30/2025 2:02 AM T [facility] Anion Gap 11 6 - 16 mmol/L 01/30/2025 2:02 AM CDT [facility] BUN 23 7 - 26 mg/dL 01/30/2025 2:02 AM CDT [facility] Creatinine 1.03 0.50 - 1.20 mg/dL 01/30/2025 2:02 AM [facility] Alkaline Phosphatase 76 40 - 150 U/L 01/30/2025 2:02 AM CDT [facility] ALT 27 6 - 57 U/L 01/30/2025 2:02 AM CDT [facility] AST 24 10 - 48 U/L 01/30/2025 2:02 AM [facility] Protein Total 7.7 6.4 - 8.3 gm/dL 01/30/2025 2:02 AM CDT [facility] Albumin 3.7 3.1 - 4.5 gm/dL 01/30/2025 2:02 AM [facility] Bilirubin Total 0.6 0.2 - 1.2 mg/dL 01/30/2025 2:02 AM CDT [facility] eGFR by CKD-EPI 59(L) >=90 mL/min/1.7 3 m2 01/30/2025 2:02 AM CDT [facility] Comment:Estimated Glomerular Filtration Rate (eGFR) calculated using the CKD-EPI Creatinine Equation (2020), per the National Kidney Foundation and [place] Society of Nephrology recommendations. Blood BLOOD SPECIMEN / Unknown Venipuncture / Unknown 01/30/2025 1:50 AM CDT 01/30/2025 1:50 AM CDT Patsy Hill MD LAB - CHEMISTRY ORDERABLES Fin al Result Performing Organization Address City/[facility] Co de Phone Number [facility] [address] [place], [place] [id number] * TROPONIN-I HIGH SENSITIVE BASELINE + 1HR (01/30/2025 1:20 AM CDT) Only the most recent of2 resultswithin the time period is included. Pathologist [facility] Troponin I High Sensitive 9 <=14 ng/L 01/30/2025 1:44 AM CDT [facility] Blood BLOOD SPECIMEN / Unknown Venipuncture / Unknown 01/30/2025 1:20 AM CDT 01/30/2025 1:20 AM CDT Patsy Hill MD LAB - CHEMISTRY ORDERABLES Fin al Result Performing Organization Address City/[facility] Co de Phone Number [facility] [address] [place], [place] [id number] * (ABNORMAL) CBC W AUTO DIFFERENTIAL (01/30/2025 1:20 AM CDT) Only the most recent of2 resultswithin the time period is included. WBC 13.4(H) 4.0 - 10.7 x10E9/L 01/30/2025 1:24 AM CDT [facility] RBC Count 4.52 3.90 - 5.20 x10E12/L 01/30/2025 1:24 AM CDT [facility] Hemoglobin 12.7 11.9 - 15.8 g/dL 01/30/2025 1:24 AM CDT [facility] Hematocrit 41.2 34.8 - 46.1 % 01/30/2025 1:24 AM CDT [facility] MCV 91.2 80.0 - 98.0 fL 01/30/2025 1:24 AM [facility] MCH 28.1 26.7 - 33.6 pg 01/30/2025 1:24 AM CDT [facility] MCHC 30.8(L) 31.7 - 36.3 g/dL 01/30/2025 1:24 AM [facility] RDW-CV 14.0 11.3 - 14.8 % 01/30/2025 1:24 AM [facility] Platelet Count 258 150 - 420 x10E9/L 01/30/2025 1:24 AM [facility] MPV 9.9 7.8 - 11.4 fL 01/30/2025 1:24 AM [facility] Neutrophil % 74.9(H) 41.0 - 74.0 % 01/30/2025 1:24 AM [facility] Lymphocyte % 19.2 17.0 - 47.0 % 01/30/2025 1:24 AM [facility] Monocyte % 5.1 3.0 - 11.0 % 01/30/2025 1:24 AM [facility] Eosinophil % 0.3 0.0 - 7.0 % 01/30/2025 1:24 AM CD[address] [facility] Basophil % 0.2 0.0 - 1.6 % 01/30/2025 1:24 AM CDT [facility] Immature Granulocytes % 0.3 0.0 - 1.0 % 01/30/2025 1:24 AM [facility] Neutrophil Absolute 10.06(H) 1.60 - 7.50 x10E9/L 01/30/2025 1:24 AM CDT [facility] Lymphocyte Absolute 2.58 1.00 - 4.40 x10E9/L 01/30/2025 1:24 AM CDT [facility] Monocyte Absolute 0.69 0.15 - 1.00 x10E9/L 01/30/2025 1:24 AM CDT [facility] Eosinophil Absolute 0.04 0.00 - 0.60 x10E9/L 01/30/2025 1:24 AM CDT [facility] Basophil Absolute 0.03 0.00 - 0.13 x10E9/L 01/30/2025 1:24 AM CDT [facility] Blood BLOOD SPECIMEN / Unknown Venipuncture / Unknown 01/30/2025 1:20 AM CDT 01/30/2025 1:20 AM CDT Patsy Hill MD LAB - HEMATOLOGY ORDERABLES Fi nal Result Performing Organization Address City/[facility]/ZIP Co de Phone Number [facility] [address] [place], [place] [id number] * EKG 12-Lead (01/30/2025 1:07 AM CDT) Only the most recent of2 resultswithin the time period is included. Ventricular Rate 86 BPM [facility] Atrial Rate 86 BPM [facility] P-R Interval 114 ms [facility] QRS Duration ms 86 ms [facility] Q-T Interval ms 370 ms [facility] QTC Calculation (Bezet) 442 ms [facility] Calculated P [place] 15 degrees [facility] Calculated T [place] 55 degrees [facility] Interpretation EKG NORMAL SINUS RHYTHM NORMAL ECG WHEN COMPARED WITH ECG OF 06-JAN-2025 10:09, NO SIGNIFICANT CHANGE WAS FOUND Confirmed by MD CAMARA PAUL ([id number]) on 01/30/2025 3:29:[address] [facility] MUSE 01/30/2025 1:07 AM CDT 01/30/2025 3:29 PM CDT Patsy Hill MD ECG ORDERABLES Edited Result - Final [facility]USE * CARDIAC RHYTHM STRIP ORDER (01/07/2025 3:38 PM CDT) Narrative 01/07/2025 3:38 PM CDT Ordered by an unspecified provider. Scanned Document CARDIAC SERVICES ORDERABLES Fin al Result * NM MYOCARD PERF REST STRESS (01/06/2025 11:21 AM CDT) Anatomical Region Laterality Modality Chest Nuclear Medicine 01/06/2025 9:22 AM CDT Narrative Procedure Note Genaro Uribe MD - 01/06/2025 [place] [address] Nuclear Myocardial Perfusion Scan Report Pat.Name: MOHSEN MARQUES Pat.ID: [id number] St.Date: 01/06/2025 Refer.MD: Mike Bhandari Exam Time: 9:22:00 AM Study Type:Nuclear Myocardial Perfusion Scan Age: 2 1955,69Y Sex: FEMALE Race: [facility] Visit ID: [id number] ++++++++++++++++++++++++++++++++++++ SUMMARY: ++++++++++++++++++++++++++++++++++++ FINDINGS: Myocardial perfusion imaging [...] Signed 01/06/2025 01:54 PM Genaro Uribe MD, [facility] Mike Bhandari MD NM ORDERABLES Edited [...] 7:00 AM Patient Status: I/P Study Site: [facility] Primary Location: [facility] EStudy Info Exam Type: STRESS TEST Indications [...] 7:00 AM Patient Status: I/P Study Site: [facility] Primary Location: [facility] EStudy Info Exam Type: STRESS TEST Indications [...] - 2.6 mg/dL 01/06/2025 4:21 AM CDT [facility] Blood BLOOD SPECIMEN / Unknown Lab Venipuncture / Unknown 01/06/2025 2:02 AM CDT 01/06/2025 3:49 AM CDT Mike Bhandari MD LAB - CHEMISTRY ORDERABLES Fi nal Result [facility] [address] [place] [address] * CT Chest Wo Contrast (01/03/2025 8:41 [...] AM CDT 01/03/2025 8:[address] [facility]CRO[facility] - 01/03/2025 1:17 PM CDT This nucleic amplification assay has received FDA authorization via the [place] [employer]. Mike Bhandari MD LAB - MICROBIOLOGY ORDERABLES Final Result [facility] [address] [place], [place] [address], [facility] [phone] * PROCALCITONIN LEVEL (01/03/2025 2:31 AM CDT) Procalcitonin 0.05 <0.10 ng/mL 01/03/2025 9:00 AM CDT [facility] Blood BLOOD SPECIMEN / Unknown Lab Venipuncture / Unknown 01/03/2025 2:31 AM CDT 01/03/2025 4:20 AM CDT Narrative [facility] - 01/03/2025 9:00 AM CDT The [...] Change in Procalcitonin Calculator is available at [email or web address] If clinical picture has not improved and PCT remains high, reevaluate and consider treatment failure or other causes. Mike Bhandari MD LAB - CHEMISTRY ORDERABLES Fi nal Result Performing Organization Address City/[facility]/ZIP Co de Phone Number [facility] [address] [place] [address] * (ABNORMAL) CBC W/O DIFFERENTIAL (01/03/2025 2:31 AM CDT) WBC 12.2(H) 4.0 - 10.7 x10E9/L 01/03/2025 4:29 AM CDT [facility] RBC Count 3.90 3.90 - 5.20 x10E12/L 01/03/2025 4:29 AM CDT [facility] Hemoglobin 11.3(L) 11.9 - 15.8 g/dL 01/03/2025 4:29 AM CDT [facility] Hematocrit 35.5 34.8 - 46.1 % 01/03/2025 4:29 AM CDT [facility] MCV 91.0 80.0 - 98.0 fL 01/03/2025 4:29 AM CDT [facility] MCH 29.0 26.7 - 33.6 pg 01/03/2025 4:29 AM CDT [facility] MCHC 31.8 31.7 - 36.3 g/dL 01/03/2025 4:29 AM CDT [facility] RDW-CV 13.4 11.3 - 14.8 % 01/03/2025 4:29 AM CDT [facility] Platelet Count 249 150 - 420 x10E9/L 01/03/2025 4:29 AM CDT [facility] MPV 10.3 7.8 - 11.4 fL 01/03/2025 4:29 AM CDT [facility] Blood BLOOD SPECIMEN / Unknown Lab Venipuncture / Unknown 01/03/2025 2:31 AM CDT 01/03/2025 4:20 AM CDT us Kimberley Young GASOLINE PLANT OPERATOR-WORKFORCE MANAGEMENT ANALYST LAB - HEMATOLOGY ORD ERABLES Final Result [facility] [address] [place] [address] * SARS-COV-2 (COVID-19) RAPID (01/02/2025 3:45 PM CDT) COVID-19 PCR Not detected Not detected 01/03/20 4:22 PM [address] [facility] Microbiology SPECIMEN FROM NASOPHARYNGEAL STRUCTURE / Unknown Collection / Unknown 01/02/2025 3:45 PM CDT 01/02/2025 3:51 PM CDT Narrative [facility] - 01/02/2025 4:22 PM CDT The [employer] Xpert Xpress SARS-COV-2 has been authorized by [...] Co de Phone Number [facility] [address] [place] [address] * (ABNORMAL) HEMOGLOBIN A1C (01/02/2025 12:16 PM CDT) Hemoglobin A1c 9.3(H) <5.7 % 01/02/2025 7:02 PM [address] [facility] Estimated Average Glucose 220 mg/dL 01/02/2025 7:02 PM CDT [facility] Blood BLOOD SPECIMEN / Unknown Venipuncture / Unknown 01/02/2025 12:16 PM CDT 01/02/2025 12:17 PM CDT Narrative [facility] - 01/02/2025 7:02 PM CDT HbA1c [...] National Glycohemoglobin Standardization Program (NGSP) certified method. Kimberley Young APRN-[facility] LAB - CHEMISTRY ANGEL SPEARS Final Result Performing Organization Address City/State/[facility] Co de Phone Number [facility] [address] [place] [address] * B-TYPE NATRIURETIC PEPTIDE (01/02/2025 12:16 PM CDT) BNP 46 <=100 pg/mL 01/02/2025 12:41 PM CDT [facility] Blood BLOOD SPECIMEN / Unknown Venipuncture / Unknown 01/02/2025 12:16 PM CDT 01/02/2025 12:17 PM CDT Narrative [facility] - 01/02/2025 12:41 PM CDT A [...] ORDERABLE S Final Result Performing Organization Address City/[facility] Co de Phone Number [facility] [address] [place] [address] * HEPATITIS C AB SCREEN RFLX NAAT QUANT (02/21/2023 6:30 PM CDT) Hepatitis C Antibody Non-react hugh Non-reac tive 02/21/2023 7:32 PM CDT [facility] Comment:Hepatitis C Antibody screen indicates no [...] ORDERABLES Fi nal Result Performing Organization Address City/[facility] Co de Phone Number [facility] [address] [place] [address], [facility] [phone] from Last 3 Months or Most Recently Relevant to Health Maintenance Insurance [facility] MANAGED MEDICARE [place] [id number] [facility] MANAGED MEDICARE [facility] MEDICAID - [place] Advance Directives * Full [...] 12:11 AM 05/20/2023 7:16 PM Care Teams Post Secondary Professional Relationship Specialty Start Date End Date Justen Gale MD [facility] - General 07/05/21
--- OUTSIDE RECORDS SUMMARY | 2025-02-03 15:51 | XMS_ITS | Clinical Summary ---
Author Organization [facility] Address [facility] [place] [address] Care Team Providers Care Insulation And Flooring Assembler Name Role Phone Meena Bansal MD Unavailable [phone] Justen Gale MD Primary Care Provider [phone] Allergies Active Allergy Reactions Criticality Noted Date [...] reflux disease 09/05/2020 Malignant tumor of breast 09/05/2020 Knee pain 09/05/2020 Other chronic pain 09/05/2020 [...] left inferior nodule. ACS (acute coronary syndrome) 03/18/2018 Assessment & Plan (03/18/2018 2:55 AM OPERATING ROOM COORDINATOR): Acute, patient reported as epigastric pain however may be atypical presentation. Troponins negative x2. Also in differential is GERD, PUD - Admit to observation -Follow-up troponins -Monitor vitals -N.p.o. at midnight - Stress echo in a.m. - Consider cardiology consult based on results of stress test -Begin Protonix Epigastric pain 03/18/2018 Assessment & Plan (03/18/2018 5:39 AM OPERATING ROOM COORDINATOR): Acute, non radiating, worsens with lying [...] Speech impairment 01/30/2018 CVA (cerebral vascular accident) 01/24/2018 Neck pain on right side 12/01/2017 Anxiety and depression 11/12/2017 Chronic anticoagulation 11/09/2017 Constipation 11/09/2017 Uncontrolled type 2 diabetes mellitus with hyperglycemia, with long-term current use of insulin 11/06/2017 MCFP (current) use 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 inhibitors 10/23/2017 Lumbosacral [...] 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 10/17/2017 Assessment & Plan (08/31/2018 12:24 AM CDT): S/p masectomy. -continue exemestane Acute deep vein thrombosis ( DVT) of proximal vein of right lower extremity 10/17/2017 Dysuria 10/17/2017 Hyperthyroidism 10/17/2017 Cancer of overlapping sites of left female breas t 10/13/2017 Syncope 09/29/2017 High blood pressure 08/22/2017 Overview (09/05/2020): Last Assessment & Plan: On lisinopril Last Assessment & Plan: On lisinopril Assessment & Plan (08/30/2018 9:57 PM CDT): Chronic. Controlled. -continue home medications Assessment & Plan (03/18/2018 2:51 AM OPERATING ROOM COORDINATOR): Chronic, BPs currently 127/78 - To new home meds Morbid obesity with BMI of 50.0-59.9, adult 04/2017 Sepsis 08/22/2017 Type 2 diabetes mellitus 08/22/2017 Overview (09/05/2020): Last Assessment & Plan: Hold janument. Start on SSI and accucheks Assessment & Plan (08/30/2018 10:01 PM CDT): Chronic. Controlled. -continue home insulin regimen of lantus 50 units q am -lispro 20 units with breakfast and lunch. 22 units with dinner. Assessment & Plan (03/18/2018 2:53 AM OPERATING ROOM COORDINATOR): Chronic, patient reports medical compliance with 50 units of Lantus daily and 15 units of Humalog before meals. No recent HbA1c - Monitor POC glucose -Woody home regimen - Consider sliding scale insulin -Follow-up HbA1c Bronchitis 08/20/2017 LUL (obstructive sleep apnea) 08/01/2017 Assessment & Plan (03/18/2018 2:54 AM OPERATING ROOM COORDINATOR): Chronic, on CPAP at home - Continue home CPAP History of DVT (deep vein thrombosis) 08/01/2017 Assessment & Plan (03/18/2018 2:54 AM OPERATING ROOM COORDINATOR): Chronic - Continue home Xarelto Chest pressure 08/01/2017 Diet-controlled diabetes mellitus 08/01/2017 History of pulmonary embolism 08/01/2017 Hyponatremia 08/01/2017 Positive blood culture 08/01/2017 Acute pharyngitis 07/27/2017 Generalized weakness 07/27/2017 Nausea and vomiting 07/26/2017 Overview (09/05/2020): Overview: Overview: Added automatically from request for surgery [id number] Overview: Added automatically from request for surgery [id number] Added automatically from request for surgery [id number] Neuropathy 07/05/2017 History of breast cancer 02/06/2017 Pulmonary embolism 08/09/2016 Overview (09/05/2020): Last Assessment & Plan: [...] syndrome Assessment & Plan (03/18/2018 2:54 AM OPERATING ROOM COORDINATOR): Chronic -Continue home ropinirole Pain of [...] Orientation Straight 03/18/2018 3: 01 AM OPERATING ROOM COORDINATOR Last Filed Vital Signs Vital Sign [...] series) 2016 Mammogram Screening 09/10/2016 09/10/2014, 5 COVID-19 Vaccine (2 - Lay risk series) 07/27/2020 06/29/2020 Annual Medicare Wellness Visit 2021 ASCVD LDL 10/13/2024 10/14/2023, 11/02/2016 Lipid Panel 10/13/2024 10/14/2023, 03/26, 09/28/2017, Additional history exists Hemoglobin A1C 11/18/2024 05/21/2024, 09/23, 08/14/2023, Additional history exists Influenza Adult (#1) 2025 01/17/2023, 01/03/2022, 05/04/2021, Additional history exists DTaP, Tdap and Td Vaccines (2 - Td or Tdap) 02/22/2026 02/23/2016 Colorectal Cancer Screening Colonoscopy (10 Years) 09/09/2028 09/09/2018 Dexa Scan (General) Completed 08/02/2022, 08/02/2022, 11/10/2020, Additional history exists Hepatitis C Completed 02/21/2023 Hepatitis A Vaccines Aged Out No long er eligible based on patient's age to complete this topic Meningococcal B Vaccine Aged Out No l [...] 8.0(H) <5.7 % 10/14/2023 5:50 AM CDT [facility] Comment: ADA GUIDELINES 2010 5.7 TO 6.4% INCREASED RISK OF DIABETES > OR = 6.5% CONSISTENT WITH DIABETES ESTIMATED AVG GLUCOSE 183 mg/dL 10/14/2023 5:50 AM CDT [facility] 10/14/2023 3:40 AM CDT us Peggy Bland MD LABORATORY Final Result [facility] [address] [place] [address], * LIPID PANEL (10/14/2023 3:40 AM CDT) CHOLESTEROL 164 <200 MG/DL 10/14/2023 4:31 AM CDT [facility] TRIGLYCERIDES 114 <150 MG/DL 10/14/2023 4:31 AM CDT [facility] HDL 46 >40.0 MG/DL 10/14/2023 4:31 AM CDT [facility] LDL (CALCULATED) 95 <100 MG/DL 10/14/19 4:31 AM CDT [facility] NON HDL CHOLESTEROL 118 <130 MG/DL 10/13 4:31 AM CDT [facility] CHOL/HDL RATIO 3.6 0.0 - 4.5 10/14/2023 4:31 AM CDT [facility] VLDL CALCULATION 23 5 - 55 MG/DL 10/14/2023 4:31 AM CDT [facility] LIPID INTERPRETATION 10/14/2023 4:31 AM CDT [facility] Comment: NIH CONCENSUS REPORT RECOMMENDATIONS: ADULT CHILD LOW RISK: CHOLESTEROL <200 <170 TRIGLYCERIDE <150 --- HDL >=60 --- LDL <100 <110 BORDERLINE: CHOLESTEROL 200-239 170-199 TRIGLYCERIDE 150-199 --- HDL 40-59 --- LDL 100-159 110-129 HIGH RISK: CHOLESTEROL >=240 >=200 TRIGLYCERIDE >=200 --- HDL <40 --- LDL >=160 >=130 10/14/2023 3:40 AM CDT Peggy Bland MD LABORATORY Final Result [facility] [address] [place] [address], [place] [phone] from Last 3 Months or Most Recently Relevant to Health Maintenance Insurance [facility] MEDICAID [facility] MEDICARE Advance Directives * Full Code (Latest Code [...] 2:42 AM 03/18/2018 4:50 PM Care Teams Insulation And Flooring Assembler Relationship Specialty Start Date End Date Justen Gale MD [address] [place] [address] PCP - General FAMILY PRACTICE 08/20/17 Meena Bansal MD [address] [place] [address] [place] [employer] Makeup Operator CARDIOVASCULAR DISEASE 04/24/16
--- OUTSIDE RECORDS SUMMARY | 2025-02-03 15:51 | XMS_ITS | Encounter Summary ---
Author Organization [facility] Address [address] [place] [address] Phone Care Team Providers Care Pipe Organ Installer Name Role Phone Justen Gale MD Primary Care Provider [phone] David Roberts APRN, IT INFRASTRUCTURE CONSULTANT Unavailable [phone] Annel Rod MD Unavailable Reason for Visit * Reason Comments Medication Refill Encounter Details Date Type Department Care Team (Late st Contact Info) Description 07/06/2023 Refill [facility] [address] [place] [id number] Justen Gale MD [address] [address] Medication Refill Social History Tobacco Use Types [...] AM CDT Medication(s) refilled and signed per [facility] Chronic Medication Refill Standing Order for Pediatricand [...] Dept 06/27/23 Office Visit Justen Gale MD [facility] [place] 01/17/23 Office Visit Catrina Quiñonez MD [facility] [place] Showing recent visits within past 270 [...] st Contact Info) Description 03/19/2025 2:00 PM SPLUNK DEVELOPER Office Visit [facility] - Endocrinology - [place] [address] [place] [address] Annel Rod MD [address] [address] 05/29/2025 1:30 PM SPLUNK DEVELOPER Office Visit [facility] [address] [place] [address] Justen Gale MD [address] [place] [facility] [address] [place] [address] documented as of this encounter Visit Diagnoses Not on filedocumented in this encounter Additional Health Concerns Infection Onset Date Last Indicated Resolved Time COVID - 19 08/01/2024 08/01/2024 08/01/2024 3:20 PM CDT Respiratory Rule-Out 11/18/2024 11/18/2024 025 7:18 AM CDT Assessment Noted Time PHQ-9 Depression Total Score: 8 01/18/20 23 2:24 PM CDT documented as of this encounter Care Teams Pipe Organ Installer Relationship Specialty Start Date End Date Justen Gale MD [address] [address] [address] PCP - General Family Medicine 10/17/17 David Roberts APRN, IT INFRASTRUCTURE CONSULTANT [address] [place] [address] Nurse Practitioner Advanced Practice Nurse 01/31/22 Annel Rod MD [address] [address] Consulting Physician Endocrinology 07/01/22 documented as of this encounter
--- OUTSIDE RECORDS SUMMARY | 2025-02-03 15:51 | XMS_ITS | Encounter Summary ---
Author Organization [facility] Address [address] [place] [address] Phone Care Team Providers Care Header Boss Name Role Phone Justen Gale MD Primary Care Provider [phone] David Roberts APRN, ADMIN DIR Unavailable [phone] Annel Rod MD Unavailable Reason for Visit * Reason Comments Medication Refill Encounter Details Date Type Department Care Team (Late st Contact Info) Description 03/13/2021 Refill [facility] [address] [place] [address] Justen Gale MD [address] [address] Medication Refill Social History Tobacco [...] COVID-19? No / Unsure 03/02/2021 5:05 PM NEUROPSYCHOLOGY MEDICAL CONSULTANT documented as of this encounter Plan of Treatment Upcoming Encounters Date Type Department Care Team (Late st Contact Info) Description 03/19/2025 2:00 PM NEUROPSYCHOLOGY MEDICAL CONSULTANT Office Visit [facility] - Endocrinology [facility] [address] [place] [address] Annel Rod MD [address] [address] 05/29/2025 1:30 PM NEUROPSYCHOLOGY MEDICAL CONSULTANT Office Visit [facility] [address] [place] [address] Justen Gale MD [address] [address] documented as of this encounter Visit Diagnoses Not on filedocumented in this encounter Additional Health Concerns Infection Onset Date Last Indicated Resolved Time COVID - 19 08/01/2024 08/01/2024 08/01/2024 3:20 PM CDT Respiratory Rule-Out 11/18/2024 11/18/2024 025 7:18 AM CDT Assessment Noted Time PHQ-9 Depression Total Score: 0 07/21/19 21 3:00 PM CDT documented as of this encounter Care Teams Header Boss Relationship Specialty Start Date End Date Justen Gale MD [address] [address] PCP - General Family Medicine 10/17/17 David Roberts, BELT PRESS OPERATOR, ADMIN DIR [address] [place] [address] Nurse Practitioner Advanced Practice Nurse 01/31/22 Annel Rod MD [address] [phone] Consulting Physician Endocrinology 07/01/22 documented as of this encounter
--- OUTSIDE RECORDS SUMMARY | 2025-02-03 15:51 | XMS_ITS | Encounter Summary ---
Author Organization [facility] Address [address] [place] [address] Phone Care Team Providers Care Binding End Stitcher Name Role Phone Justen Gale MD Primary Care Provider [phone] David Roberts APRN, SENIOR MANUFACTURING TEST ENGINEER Unavailable [phone] Annel Rod MD Unavailable Reason for Visit * Reason Comments Medication Refill Encounter Details Date Type Department Care Team (Late st Contact Info) Description 07/14/2022 Refill [facility] [address] [place] [phone] Justen Gale MD [address] [address] Medication Refill Social History Tobacco Use Types [...] st Contact Info) Description 03/19/2025 2:00 PM WINDOW AND DOOR INSTALLER Office Visit [facility] - Endocrinology - [place] [address] [place] [address] Annel Rod MD [address] [address] 05/29/2025 1:30 PM WINDOW AND DOOR INSTALLER Office Visit [facility] - Family Medicine [facility] [address] [place] [address] Justen Gale MD [address]2 [facility] [address] [place] [address] documented as of this encounter Visit Diagnoses Not on filedocumented in this encounter Additional Health Concerns Infection Onset Date Last Indicated Resolved Time COVID - 19 08/01/2024 08/01/2024 08/01/2024 3:20 PM CDT Respiratory Rule-Out 11/18/2024 11/18/2024 025 7:18 AM CDT Assessment Noted Time PHQ-9 Depression Total Score: 0 07/21/19 21 3:00 PM CDT documented as of this encounter Care Teams Binding End Stitcher Relationship Specialty Start Date End Date Justen Gale MD [address]2 [facility] [address] [place] [address] PCP - General Family Medicine 10/17/17 David Roberts APRN, SENIOR MANUFACTURING TEST ENGINEER [address] [place] [address] Nurse Practitioner Advanced Practice Nurse 01/31/22 Annel Rod MD [address]2 [facility] [address] [place] [address] Consulting Physician Endocrinology 07/01/22 documented as of this encounter
--- OUTSIDE RECORDS SUMMARY | 2025-02-03 15:51 | XMS_ITS | Clinical Summary ---
Author Organization [facility] Address [address] [place] [address] Phone Care Team Providers Care Finish Production Manager Name Role Phone Justen Gale MD Primary Care Provider [phone] David Roberts APRN, BUILDING MAINTENANCE SUPERINTENDENT Unavailable [phone] Annel Rod MD Unavailable Allergies Active Allergy [...] Active OneTouch Delica Lancets 33G [facility] 1 Lancet by Does not apply route 4 times daily. 400 Lancet 3 03/09/20 21 Active naloxone HCl (Narcan) 4 MG/0.1ML Liquid 05/13/19 22 Active diphenhydrAMI NE (BENADRYL) 25 MG Capsule Take 25 mg by mouth every 6 hours as needed. Active Continuous Blood Gluc Sensor (FreeStyle Eileen 2 Sensor) [facility] APPLY 1 SENSOR AND WEAR FOR 14 [...] Overview: Added automatically from request for surgery [id number] Lymphedema of left upper extremity 08/09/2016 Pulmonary embolism 08/09/2016 Overview (11/09/2017): Last Assessment & Plan: On Rivaroxaban Arthralgia of ankle 01/26/2015 Resolved Problems Problem Noted Date Diagnosed Date Resolved Date Cellulitis of breast 11/11/2014 025 Encounters Date Type Department Care Team Description 01/29/2025 Nurse Triage [facility] [address] [place] [address] Justen Gale MD Facial Swelling 01/23/2025 MyChart RX Renewal [facility] - [facility]ology - [place] [address] [place] [address] Annel Rod MD Medication Renewal Reviewed 01/18/2025 Refill [facility] [place] [address] Pili Elkins APRN, BUILDING MAINTENANCE SUPERINTENDENT Medication Refill 01/08/2025 Nurse Triage [facility] Call [address] [phone] Justen Gale MD High Blood Sugar (Under Dr Rod, not Dr Gale) 01/08/2025 MyChart RX Renewal [facility] Endocrinology [facility] [address] [place] [phone] Annel Rod MD Medication Renewal Reviewed 12/30/2024 MyChart RX Renewal [facility] [address] [place] [phone] Justen Gale MD Medication Renewal Reviewed 12/30/2024 MyChart RX Renewal [facility] [address] [place] [phone] Plii Elkins APRN, BUILDING MAINTENANCE SUPERINTENDENT Medication Renewal Reviewed 12/24/[address] [phone] Justen Gale MD Advice Only; Results 12/19/2024 Telephone [facility] [address] [place] [address] Justen Gale MD 12/18/[address] [phone] Jsuten Gale MD Results 12/17/2024 3:30 PM CDT Office Visit [facility] [address] [place] [phone] Annel Rod MD Type 2 diabetes mellitus [...] - 12/17/2024 11:59 PM CDT [facility] [address] [place] [phone] Justen Gale MD Discharge Disposition: Discharged to home or Selfcare 12/17/2024 Travel 12/14/2024 Nurse Triage [facility] Call [facility] [address] [place] [phone] Justen Gale MD Nausea; Shortness of Breath; Dizziness; Generalized Weakness 12/14/2024 Telephone [facility] [address] [place] [phone] Justen Gale MD Advice Only 12/06/2024 Telephone [facility] [address] [place] [phone] Justen Gale MD Post-Hospital Follow-up 11/25/2024 10:00 AM CDT Office Visit [facility] Family Medicine [facility] [address] [place] [phone] Pili Elkins, SAUSAGE GRINDER, BUILDING MAINTENANCE SUPERINTENDENT Acute diastolic congestive heart failure (HCC) (Primary Dx); Type 2 diabetes mellitus with diabetic polyneuropathy, with long-term current use of insulin (HCC); OAB (overactive bladder); Polymyalgia rheumatica (HCC) Discharge Disposition: Discharged to home or Selfcare 11/25/2024 Travel 11/21/2024 Nurse Triage [facility] [address] [place] [phone] Justen Gale MD Advice Only; Urinary Frequency 11/21/2024 MyChart RX Renewal [facility] Endocrinology [facility] [address] [place] [phone] Annel Rod MD Medication Renewal Reviewed 11/21/2024 MyChart [facility] [place] [phone] Justen Gale MD Medication Renewal Declined 11/21/2024 MyChart [facility] [place] [address] Pili Elkins APRN, BUILDING MAINTENANCE SUPERINTENDENT Medication Renewal Reviewed 11/20/2024 [facility] [address] [place] [phone] Justen Gale MD Shortness of Breath 11/20/2024 Telephone [facility] [address] [place] [phone] Justen Gale MD Post-Hospital Follow-up ([facility]) 11/14/2024 Telephone [facility] [address] [place] [phone] Justen Gale MD Follow-up 11/14/2024 Telephone [facility] [address] [place] [phone] Justen Gale MD 11/07/2024 Nurse Triage [facility] [address] [place] [phone] Justen Gale MD Advice Only; Fatigue; Shortness of Breath 11/06/2024 MyChart RX Renewal [facility] [address] [place] [address] Justen Gale MD Medication Renewal Declined 11/05/2024 [facility]ill [facility] [place] [phone] Justen Gale MD Medication Refill from Last 3 Months Immunizations Immunization Administration Dates Next Due Covid-19 Vaccine, Vector-nr, Rs-ad26, Pf, 0.5 Ml ([place]) 06/29/2020 Influenza Vaccine greater than 3 yrs [...] Recorded In the past 12 months has [employer], gas, oil, or water [employer] threatened to shut off services in [...] you attend chur ch or quaker services? More than 4 times per year [...] - Questions 1-9 0 07/23 [facility] - Occupational Stress Questionnaire Answer [...] in a half-way (including now)? No 08/06/2024 AUDIT-C Answer Date [...] st Contact Info) Description 03/19/2025 2:00 PM TRIP MOTOR OPERATOR Office Visit [facility] - Endocrinology [facility] [address] [place] [phone] Annel Rod MD [address]2 [facility] [address] [place] [address] 05/29/2025 1:30 PM TRIP MOTOR OPERATOR Office Visit [facility] - Family Medicine [facility] [address] [place] [address] Justen Gale MD [address]2 [facility] [address] [place] [address] Health Maintenance Due Date Last Done Comments [...] Baldomero Laboy D.O. AP: AP Report ID: [id number] [place] Location: [id number] Procedure Note Baldomero Laboy DO - 12/18/2024 [...] Baldomero Laboy D.O. AP: AP Report ID: [id number] [place] Location: [id number] IMPRESSION: No significant change in appearance of the chest when compared to the previous chest radiograph dated 12/11/2024. Justen Gale MD IMG DIAGNOSTIC ORDERABLES Fin al Result * XR - CHEST (11/27/2024 12:00 AM CDT) Only the most recent of2 resultswithin the time period is included. 11/27/2024 us Provider Scan IMG DIAGNOSTIC ORDERABLES Final Result Performing Organization Address [facility] de Phone Number SCAN * RESPIRATORY SYNCYTIAL VIRUS BY MOLECULAR (11/18/2024 12:00 AM CDT) 11/18/2024 us Provider Scan MICROBIOLOGY - GENERAL ORDERABLE S Final Result Performing Organization Address [facility] Co de Phone Number SCAN * US - UPPER EXTREMITY (11/18/2024 12:00 AM CDT) 11/18/2024 us Provider Scan IMG US ORDERABLES Final Result Performing Organization Address City/[facility] Co de Phone Number SCAN * US - LOWER EXTREMITY (11/18/2024 12:00 AM CDT) 11/18/2024 us Provider Scan IMG US ORDERABLES Final Result Performing Organization Address [facility] de Phone Number SCAN * XR - UPPER EXTREMITY (11/18/2024 12:00 AM CDT) Only the most recent of2 resultswithin the time period is included. 11/18/2024 us Provider Scan IMG DIAGNOSTIC ORDERABLES Final Result Performing Organization Address [facility] de Phone Number SCAN * CARDIOLOGY CONSULT (11/18/2024 12:00 AM CDT) Only the most recent of2 resultswithin the time period is included. 11/18/2024 us Provider Scan GENERIC SCAN ORDERS CONSULT Deann l Result Performing Organization Address [facility] de Phone Number SCAN * LAB - MISCELLANEOUS (11/18/2024 12:00 AM CDT) Only the most recent of2 resultswithin the time period is included. 11/18/2024 us Provider Scan CHEMISTRY ORDERABLES Final Resul t Performing Organization Address [facility] de Phone Number SCAN * URINALYSIS (UA) RANDOM (11/18/2024 12:00 AM CDT) Only the most recent of3 resultswithin the time period is included. 11/18/2024 us Provider Scan URINE ORDERABLES Final Result Performing Organization [facility] de Phone Number SCAN * URIC ACID (BLOOD ASSAY) (11/18/2024 12:00 AM CDT) 11/18/2024 us Provider Scan CHEMISTRY ORDERABLES Final Resul t Performing Organization Address City/[facility] de Phone Number SCAN * TROPONIN I (TRP I) (11/18/2024 12:00 AM CDT) 11/18/2024 us Provider Scan CHEMISTRY ORDERABLES Final Resul t Performing Organization Address [facility] de Phone Number SCAN * APTT (PTT) (11/18/2024 12:00 AM CDT) Only the most recent of2 resultswithin the time period is included. 11/18/2024 us Provider Scan HEMATOLOGY ORDERABLES Final Resu lt Performing Organization Address [facility] de Phone Number SCAN * MAGNESIUM (MG) (11/18/2024 12:00 AM CDT) Only the most recent of3 resultswithin the time period is included. 11/18/2024 us Provider Scan CHEMISTRY ORDERABLES Final Resul t Performing Organization Address [facility] de Phone Number SCAN * LACTIC ACID (LACTATE) (11/18/2024 12:00 AM CDT) Only the most recent of2 resultswithin the time period is included. 11/18/2024 us Provider Scan CHEMISTRY ORDERABLES Final Resul t Performing Organization Address [facility] de Phone Number SCAN * GLUCOSE (11/18/2024 12:00 AM CDT) 11/18/2024 us Provider Scan CHEMISTRY ORDERABLES Final Resul t Performing Organization Address [facility] de Phone Number SCAN * D-DIMER (11/18/2024 12:00 AM CDT) 11/18/2024 us Provider Scan HEMATOLOGY ORDERABLES Final Resu lt Performing Organization Address [facility] de Phone Number SCAN * CMP (COMPREHENSIVE METABOLIC PANEL) (11/18/2024 12:00 AM CDT) Only the most recent of3 resultswithin the time period is included. 11/18/2024 us Provider Scan CHEMISTRY ORDERABLES Final Resul t Performing Organization Address [facility] de Phone Number SCAN * COMPLETE BLOOD COUNT (CBC) WITH DIFF (11/18/2024 12:00 AM CDT) Only the most recent of2 resultswithin the time period is included. 11/18/2024 us Provider Scan HEMATOLOGY ORDERABLES Final Resu lt Performing Organization Address [facility] de Phone Number SCAN * C-REACTIVE PROTEIN (CRP) QUANT (11/18/2024 12:00 AM CDT) 11/18/2024 us Provider Scan CHEMISTRY ORDERABLES Final Resul t Performing Organization Address [facility] de Phone Number SCAN * BASIC METABOLIC PANEL W/ CALCIUM TOTAL (11/18/2024 12:00 AM CDT) 11/18/2024 us Provider Scan CHEMISTRY ORDERABLES Final Resul t Performing Organization Address [facility] de Phone Number [...] ECHO ORDERABLES Final Result Performing Organization Address City/State/[facility] de Phone Number RESULTING AGENCY * EKG SCAN (11/15/2024 12:00 AM CDT) Only the most recent of2 resultswithin the time period is included. 11/15/2024 us Provider Scan IMG ECG ORDERABLES Final Result Performing Organization Address City/[facility] de Phone Number RESULTING AGENCY * PROTIME (PT) (PROTHROMBIN TIME) (11/15/2024 12:00 AM CDT) Only the most recent of2 resultswithin the time period is included. INR 2.1 SCAN 11/15/2024 us Provider Scan HEMATOLOGY ORDERABLES Final Resu lt Performing Organization Address City/[facility] Co de Phone Number SCAN * THYROID STIMULATING HORMONE (TSH) (11/07/2024 12:00 AM CDT) Only the most recent of2 resultswithin the time period is included. 11/07/2024 us Provider Scan CHEMISTRY ORDERABLES Final Resul t Performing Organization Address City/[facility] Co de Phone Number SCAN [...] STOOL Negative Negative, Other POC HEMOCULT CONTROL Narcotics Detective Pass 09/07/2018 1:20 PM CDT Pili Elkins SAUSAGE GRINDER, BUILDING MAINTENANCE SUPERINTENDENT POINT OF CARE TEST ING (MANUAL) Final Result from Last 3 Months or Most Recently Relevant to Health Maintenance Insurance MEDICAID [place] MEDICARE C [employer] Care Teams Finish Production Manager Relationship Specialty Start Date End Date Justen Gale MD [address] [facility] [address] [place] [address] PCP - General Family Medicine 10/17/17 David Roberts, SAUSAGE GRINDER, BUILDING MAINTENANCE SUPERINTENDENT [address] [place] [address] Nurse Practitioner Advanced Practice Nurse 01/31/22 Annel Rod MD [address] [facility] [address] [place] [address] Consulting Physician Endocrinology 07/01/22
--- OUTSIDE RECORDS SUMMARY | 2025-02-03 15:51 | XMS_ITS | Encounter Summary ---
Author Organization [facility] Address [address] [place] [address] Phone Care Team Providers Care Plate Finisher Name Role Phone Justen Gale MD Primary Care Provider [phone] David Roberts APRN, KILN FEEDER Unavailable [phone] Annel Rod MD Unavailable Reason for Visit * Reason Onset Date Comments Sore Throat 06/29/2020 Encounter Details Date Type Department Care Team (Late st Contact Info) Description 06/29/2020 Telephone [facility] [address] [place] [address] Justen Gale MD [address] [address] Sore Throat Social History Tobacco Use Types [...] COVID-19? No / Unsure 06/29/2020 8:43 AM DEBURRING MACHINE OPERATOR documented as of this encounter Miscellaneous Notes * Telephone Encounter - Gail Lucero RN - 06/29/2020 3:53 PM CST Attempted to call mailbox is full. Pt does not need testing RRING MACHINE OPERATOR * Telephone Encounter - Vince Hermosillo MD - 06/29/2020 3:13 PM CST No covid testing needed. If the er thought that it was warranted then they would have done this. RRING MACHINE OPERATOR * Telephone Encounter - Marlys Sorensen RN - 06/29/2020 8:36 AM CST Patient calling. Patient is calling to schedule Hospital/ED/Prompt-[facility] follow up appointment. Hospital/ED/[facility] Site: [facility] ED Records Requested: Yes Reason for [...] f/up and yearly PAP appointments? Please advise. RRING MACHINE OPERATOR documented in this encounter Plan of Treatment Upcoming Encounters Date Type Department Care Team (Late st Contact Info) Description 03/19/2025 2:00 PM DEBURRING MACHINE OPERATOR Office Visit [facility] - Endocrinology - [place] [address] [place] [address] Annel Rod MD #2 [facility] [address] [place] [address] 05/29/2025 1:30 PM DEBURRING MACHINE OPERATOR Office Visit [facility] - Family Medicine [facility] [address] [place] [address] Justen Gale MD [address]2 [facility] [address] [place] [address] documented as of this encounter Visit Diagnoses Not on filedocumented in this encounter Additional Health Concerns Infection Onset Date Last Indicated Resolved Time COVID - 19 08/01/2024 08/01/2024 08/01/2024 3:20 PM CDT Respiratory Rule-Out 11/18/2024 11/18/2024 025 7:18 AM CDT Assessment Noted Time PHQ-9 Depression Total Score: 0 09/08/19 19 1:00 PM CDT documented as of this encounter Care Teams Plate Finisher Relationship Specialty Start Date End Date Justen Gale MD [address]2 [facility] [address] [place] [address] PCP - General Family Medicine 10/17/17 David Roberts, DROP PIT WORKER, KILN FEEDER [address] [place] [address] Nurse Practitioner Advanced Practice Nurse 01/31/22 Annel Rod MD [address]2 [facility] [address] [place] [address] Consulting Physician Endocrinology 07/01/22 documented as of this encounter
--- OUTSIDE RECORDS SUMMARY | 2025-02-03 15:51 | XMS_ITS | Clinical Summary ---
Author Organization [facility] Address [address] [place] [id number] Care Team Providers Care Training Program Assistant Name Role Phone Liu Jerez MD Unavailable Albert Corbin MD Unavailable Justen Gale MD Primary Care Provider Khris Arthur MD Unavailable [phone] Ko Melendez MD Unavailable John Paul Moyer MD Unavailable Annel Rod MD Unavailable Anali MARSHALL MD, Carlos M. Unavailable [phone] Allergies Active Allergy Reactions Criticality Noted Date [...] 05/22/2024 Assessment & Plan (05/26/2024 10:08 AM SUPPLY PERSON): Presenting with urinary symptoms of right flank [...] 3 doses q48 hours -Previously followed with [facility] Urology, but lost to follow up when her Urologist left the practice, outpatient urology follow up placed - good pain control w/Dilaudid, continue prn Venous thromboembolism (VTE) 05/22/2024 Assessment & Plan (05/25/2024 7:52 AM SUPPLY PERSON): Hx of breast cancer c/b DVT/bilateral Pes [...] 05/22/2024 Assessment & Plan (05/22/2024 1:14 PM SUPPLY PERSON): -long-standing chronic back pain -CT L spine [...] 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) 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 10/17/2019 [...] complication, without long-term current use of insulin ([facility]) 10/23/2017 Assessment & Plan (10/23/2017 2:06 [...] 10/13/2017 Assessment & Plan (05/22/2024 12:29 PM SUPPLY PERSON): -Hx stage II, ER positive, HER2 negative breast cancer, on adjuvant exemestane -s/p bilateral mastectomies, left axillary LN dissection, with negative margins -Follows with Khris Somers -Outpatient Medical Oncology Note review indicates plan to continue on exemestane, will complete 10 years of therapy in 12/2024 -Yearly Reclast, next dose 11/2024 Chest pressure 08/01/2017 Positive blood culture 08/01/2017 Hyponatremia 08/01/2017 Diet-controlled diabetes mellitus ([facility]/HCC) 07/23 LUL (obstructive sleep apnea) 08/01/2017 Assessment & Plan (05/22/2024 12:33 PM SUPPLY PERSON): -Hx LUL -Hospital provided CPAP ordered History of DVT (deep vein thrombosis) 08/01/2017 History of pulmonary embolism 08/01/2017 Generalized weakness 07/27/2017 Dyspnea 07/27/2017 Unintentional weight loss 07/27/2017 Acute cystitis without hematuria 07/27/2017 Nausea and vomiting 07/26/2017 Overview (07/28/2017): Added automatically from request for surgery [id number] Pulmonary embolism 08/09/2016 Assessment & Plan (10/23/2017 2:05 AM CDT): On Rivaroxaban Lymphedema of left upper extremity 08/09/2016 Assessment & Plan (05/25/2024 7:53 AM SUPPLY PERSON): S/p L axillary lymph node dissection 2014, [...] syndrome Assessment & Plan (05/22/2024 11:18 AM SUPPLY PERSON): -continue home Requip 5mg nightly Pain of lower extremity 03/12/2013 Overview (07/29/2016): Leg pain Essential hypertension Assessment & Plan (05/23/2024 10:42 AM SUPPLY PERSON): -Chart history of HTN but not on meds -BP elevated on admission, likely some pain contributing -Monitor closely once pain under adequate control, discussed following up with PCP for this Chronic anticoagulation Restless leg syndrome 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 Type 2 diabetes mellitus without complication Assessment & Plan (05/24/2024 1:39 PM SUPPLY PERSON): -Last Ha1c 8.4 in 2023, repeat 8.7 [...] TCC Subsequent Outreach [facility] [address] [place] [address] Janet Ba 01/08/2025 9:[address] [facility] [address] [place] [address] [address] [place] [address] Polymyalgia rheumatica syndrome; Vitamin D deficiency 01/08/2025 9:21 AM CDT - 01/08/2025 11:59 PM CDT Hospital Encounter [facility] at [facility] [address] [place] [address] Polymyalgia rheumatica syndrome; Vitamin D deficiency Discharge Disposition: Discharge to home or self care 01/08/2025 8:30 AM CDT Office Visit [facility] Medicine Rheumatology [address] [place] [address] 2nd Floor [address] [place] [address] Karely Rosado MD Polymyalgia rheumatica syndrome (Primary Dx); Vitamin D deficiency 01/07/2025 3:00 PM CDT Infusion [facility] - Infusion [address] [place] [address] [address] 5 [place] [address] Malignant neoplasm of overlapping sites of left breast in female, estrogen receptor positive (HCC) (Primary Dx); Malignant neoplasm of upper-inner quadrant of left breast in female, estrogen receptor positive (HCC); Malignant neoplasm of upper-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, unspecified estrogen receptor status (HCC); 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; Bone disorder 01/07/2025 2:00 PM CDT Office Visit [facility] Medicine Oncology [address] [facility] Floor 8 [place] [address] AdeKhris thomson MD Malignant neoplasm of upper-inner quadrant of left breast in female, estrogen receptor positive (HCC) (Primary Dx) 01/07/2025 1:00 PM CDT Clinical Support [facility] - Lab Collection [address] [facility] Floor 5 [place] [address] Malignant neoplasm of upper-inner quadrant of left breast in female, estrogen receptor positive (HCC) 12/26/2024 TCC Subsequent Outreach [facility] [address] [place] [address] Janet Ba 12/20/2024 Orders Only [facility] Cardiology [address] [place] [address] Laury Moore NP 12/18/2024 Telephone [facility] Medicine Oncology [address] [facility] [address] 8 [place] [address] Eden Carney RN 12/17/2024 TCC Subsequent Outreach [facility] [address] [place] [address] Madelyn Cruz NP 12/17/2024 TCC Subsequent Outreach [facility] [address] [place] [address] Madison Chadwick, [facility] 12/11/2024 3:16 PM CDT - 12/11/2024 9:03 PM CDT Emergency [facility] Emergency Department [address] [place] [address] Shortness of breath (Primary Dx); Generalized weakness Discharge Disposition: Discharge to home or self care 12/10/2024 TCC Subsequent Outreach [facility] [address] [place] [address] Madison Chadwick, [facility] 12/07/2024 10:38 PM CDT - 12/08/2024 2:52 AM T Emergency [facility] Emergency Department [address] [place] [address] Gil Diez, Dehydration (Primary Dx) Discharge Disposition: Discharge to home or self care 12/06/2024 TCC Initial Outreach [facility] [address] [place] [address] Yunier Hernandez RN 12/03/2024 TCC Initial Eligibility Review [facility] [address] [place] [address] Yunier Hernandez RN 12/02/2024 5:27 PM CDT - 12/05/2024 3:30 PM CDT Hospital Encounter [place] [address] Med Surg [facility] [place] [address] Patrick Rice DO Medavaram, Atul, MD Saravanan, [...] in a fci (including now)? No 05/24/2024 Social Connection and [...] living in a fci (including now)? No 12/03/2024 [facility] Utilities Answer Date Recorded In [...] file Legal Sex Female 12:24 AM SUPPLY PERSON Gender Identity Not on file Sexual [...] Lymphocyte abs 1.89 0.80 - 3.30 K/cumm [facility] Monocyte abs 1.06(H) 0.20 - 0.80 K/cumm [facility] Eosinophil abs 0.26 0.00 - 0.50 K/cumm [facility] Basophil abs 0.05 0.00 - 0.10 K/cumm [facility] Neutrophil pct 73.6 % [facility] Comment: Interpretive Data Percent cell count reference ranges are not reported, since discordance with absolute values may lead to misinterpretation of CBC data. Current Interpretive Data was last revised on 2017. Imm gran pct 0.6 % [facility] Comment: Interpretive Data Percent cell count reference ranges are not reported, since discordance with absolute values may lead to misinterpretation of CBC data. Current Interpretive Data was last revised on 2017. Lymphocyte pct 14.9 % [facility] Comment: Interpretive Data Percent cell count reference ranges are not reported, since discordance with absolute values may lead to misinterpretation of CBC data. Current Interpretive Data was last revised on 2017. Monocyte pct 8.4 % [facility] Comment: Interpretive Data Percent cell count reference ranges are not reported, since discordance with absolute values may lead to misinterpretation of CBC data. Current Interpretive Data was last revised on 2017. Eosinophil pct 2.1 % [facility] Comment: Interpretive Data Percent cell count reference ranges are not reported, since discordance with absolute values may lead to misinterpretation of CBC data. Current Interpretive Data was last revised on 2017. Basophil pct 0.4 % [facility] Comment: Interpretive Data Percent cell count reference ranges are not reported, since discordance with absolute values may lead to misinterpretation of CBC data. Current Interpretive Data was last revised on 2017. Blood 01/08/2025 9:33 AM CDT 01/08/2025 11:11 AM CDT Karely Rosado MD LAB BLOOD ORDERABLES Final R esult Performing Organization Address City/State/[facility] Co de Phone Number [facility] [place] [address] * MAGGIE ab eval w/reflex (01/08/2025 9:33 AM CDT) MAGGIE ab Negative Negative Comment: Interpretive Data Positive Screens will be reflexed to specific testing for Antibodies against the following antigens: Milena-1 Ab, MUSEUM ATTENDANT Ab, Scl-70 Ab, Goel Ab, SS-A/Ro Ab, and SS- B/La Ab. Further testing for dsDNA, Centromere, or Ribosomal P antibodies is suggested in patient with a positive screen and negative specific antibodies. Current interpretive data was last revised on 2022. Blood 01/08/2025 9:33 AM CDT 01/08/2025 11:09 AM CDT Karely Rosado MD LAB BLOOD ORDERABLES Final R esult Performing Organization Address City/State/[facility] Co de Phone Number [facility] Department [place] [address] * (ABNORMAL) CBC with auto differential (01/08/2025 9:33 AM CDT) [facility] WBC 12.66(H) 3.80 - 9.90 K/cumm Hgb 13.0 11.9 - 15.5 g/dL [facility] Hct 42.3 35.6 - 45.5 % [facility] Plt 325 150 - 400 K/cumm [facility] MPV 10.5 9.1 - 12.3 fL [facility] RBC 4.61 3.90 - 5.20 M/cumm [facility] MCV 91.8 81.3 - 96.4 fL [facility] MCH 28.2 27.1 - 33.3 pg [facility] MCHC 30.7(L) 32.3 - 35.7 g/dL [facility] RDW CV 13.6 11.1 - 14.9 % [facility] RDW SD 45.8 35.7 - 48.1 fL [facility] NRBC abs 0.00 0.00 - 0.01 K/cumm [facility] Blood 01/08/2025 9:33 AM CDT 01/08/2025 11:11 AM CDT us Karely Rosado MD LAB BLOOD ORDERABLES Final R esult Performing Organization Address City/[facility]/ZIP Co de Phone Number [facility] Department [place] [address] * Cyclic citrul peptide antibody, IgG (01/08/2025 9:33 AM CDT) [facility] CCP Ab <0.5 <=2.9 units/mL Comment: Interpretive data Negative: <3 units/mL Positive: > or equal to 3 units/mL Current interpretive data was last revised on 2016. Blood 01/08/2025 9:33 AM CDT 01/08/2025 11:11 AM CDT Karely Rosado MD LAB BLOOD ORDERABLES Final R esult Performing Organization Address [facility] Co de Phone Number [facility] [place] [address] * Vitamin D 25 hydroxy (01/08/2025 9:33 AM CDT) Vitamin D 25-OH 41 30 - 80 ng/mL Blood 01/08/2025 9:33 AM CDT 01/08/2025 11:30 AM CDT Karely Rosado MD LAB BLOOD ORDERABLES Final R esult Performing Organization Address [facility] Co de Phone Number [facility] [place] [address] * Erythrocyte sedimentation rate (01/08/2025 9:33 AM CDT) Erythrocyte sedimentation rate 29 1 - 30 mm/hr Blood 01/08/2025 9:33 AM CDT 01/08/2025 11:11 AM CDT Karely Rosado MD LAB BLOOD ORDERABLES Final R esult Performing Organization Address [facility] Co de Phone Number [facility] [place] [address] * Rheumatoid factor (01/08/2025 9:33 AM CDT) Rheumatoid factor, quant <10.0 0.1 - 15.0 IUnits/mL Blood 01/08/2025 9:33 AM CDT 01/08/2025 11:30 AM CDT Karely Rosado MD LAB BLOOD ORDERABLES Final R esult Performing Organization Address City/[facility] Co de Phone Number [facility] [place] [address] * (ABNORMAL) CRP (acute phase) (01/08/2025 9:33 AM CDT) CRP 26.3(H) <=10.0 mg/L Blood 01/08/2025 9:33 AM CDT 01/08/2025 11:30 AM CDT Karely Rosado MD LAB BLOOD ORDERABLES Final R esult Performing Organization Address [facility] [place] [address] * Creatine kinase (CK), total (01/08/2025 9:33 AM CDT) Pathologist [facility] CK 105 30 - 200 Units/L Blood 01/08/2025 9:33 AM CDT 01/08/2025 11:30 AM CDT Karely Rosado MD LAB BLOOD ORDERABLES Final R esult Performing Organization Address [facility] [place] [address] * XR Hand Bilateral 3 or More [...] CDT 01/07/2025 12:45 PM CDT Darcy Goel SIGNAL WORKER LAB BLOOD ORDERABLES Final Result [facility] [place] [address] * Comprehensive metabolic panel (01/07/2025 12:42 PM CDT) [facility] Sodium 141 135 - 145 mmol/L Potassium, pl 3.9 3.3 - 4.9 mmol/L [facility] Chloride 103 97 - 110 mmol/L [facility] CO2 27 22 - 32 mmol/L [facility] Anion gap 11 2 - 15 mmol/L [facility] BUN 23 6 - 25 mg/dL [facility] Creatinine 0.83 0.60 - 1.10 mg/dL [facility] Glucose 183 70 - 199 mg/dL [facility] Comment: Interpretive Data Fasting glucose [...] Calcium 10.0 8.5 - 10.3 mg/dL [facility] Bilirubin, total 0.6 0.1 - 1.2 mg/dL [facility] Protein, pl 8.2 6.5 - 8.5 g/dL [facility] Albumin 4.1 3.5 - 5.0 g/dL [facility] Alk phos 84 40 - 130 Units/L [facility] ALT 21 7 - 45 Units/L [facility] AST 26 10 - 45 Units/L [facility] Blood 01/07/2025 12:4 2 PM CDT 01/07/2025 12:45 PM CDT Darcy Goel SIGNAL WORKER LAB BLOOD ORDERABLES Final Result [facility] Department [place] [address] * Urinalysis reflex to microscopic and culture Urine (12/11/2024 7:55 PM CDT) Color, ur Yellow Yellow Comment:Testing performed by : [address] [address] Clarity, ur Clear Clear MARY JANE Comment:Testing performed by : [address] [address] Specific gravity, ur 1.018 1.003 - 1.030 [facility] Comment:Testing performed by : [address] [address] pH, urine 6.5 [facility] Comment: Interpretive Data U rine pH is affected by diet, medications, systemic acid-base disturbances, and renal tubular function. pH may affect urinary stone formation. For example, urine pH below 6.0 may help reduce the tendency for calcium phosphate stones and pH greater than 6.0 may reduce the tendency for uric acid stone formation. Source: [facility] [employer] Current Interpretive Data was last revised on 2017 Testing performed by: [address] [address] Protein, ur ql Negative Negative [facility] Comment:Testing performed by : [address] [address] Glucose, ur ql Negative Negative [facility] Comment:Testing performed by : [address] [address] Ketones, ur Negative Negative [facility] Comment:Testing performed by : [address] [address] Bilirubin, ur Negative Negative [facility] Comment:Testing performed by : [address] [address] Blood, ur Negative Negative [facility] Comment:Testing performed by : [address] [address] Urobilinogen, ur <2.0 <2.0 mg/dL [facility] Comment:Testing performed by : [address] [address] Nitrite, ur Negative Negative [facility] Comment:Testing performed by : [address] [address] Leukocyte esterase, ur Negative Negative [facility] Comment:Testing performed by : [address] [address] UA reflex comment Reflex conditions for microscopic UA and culture not met. [facility] Comment:Testing performed by : [address] [address] Urine 12/11/2024 7:55 PM CDT 12/11/2024 7:58 PM CDT Blaze Armenta NP LAB MICROBIOLOGY - GENERAL ORDER [place]APARRO Final Result [facility] PHAM [facility] Department [place] [address] * (ABNORMAL) Troponin T high-sensitivity 4-hour (12/11/2024 6:58 PM CDT) Trop T hs 24(H) <=14 ng/L Comment: Interpretive Data For further hscTnT resources including the diagnostic algorithm and an aid in interpretation, copy and paste this link: https://nrl.testcatalog.org/show/hsTrop Current Interpretive Data last revised 2020. Testing performed by: [address] [address] Trop T hs delta -2 ng/L [facility] Comment:Testing performed by : [address] [address] Trop T hs interp Insignificant [facility] Comment:Testing performed by : [address] [address] Blood 12/11/2024 6:58 PM CDT 12/11/2024 7:03 PM CDT Rosa MCKEON LAB BLOOD ORDERABLES Final Resu lt Performing Organization Address [facility]/ZIP Co de Phone Number MARY JANE [address] [place] [address] * POCT glucose (12/11/2024 6:05 PM CDT) Glucose, POC 132 70 - 199 mg/dL Comment:Testing performed by : [address] [address] Blood 12/11/2024 6:05 PM CDT 12/11/2024 6:05 PM CDT Notinfile Unknown LAB POCT ORDERABLES - DEVICE F inal Result Performing Organization Address [facility] de Phone Number MARY JANE [address] [address] * (ABNORMAL) Troponin T high-sensitivity 2-hour (12/11/2024 5:12 PM CDT) Trop T hs 23(H) <=14 ng/L Comment: Interpretive Data For further hscTnT resources including the diagnostic algorithm and an aid in interpretation, copy and paste this link: https://nrl.testcatalog.org/show/hsTrop Current Interpretive Data last revised 2020. Testing performed by: [address] [address] Trop T hs delta -3 ng/L [facility] Comment:Testing performed by : [address] [address] Trop T hs interp Insignificant MARY JANE Comment:Testing performed by : [address] [address] Blood 12/11/2024 5:12 PM CDT 12/11/2024 5:14 PM CDT Rosa MCKEON LAB BLOOD ORDERABLES Final Resu lt Performing Organization Address [facility] Co de Phone Number MARY JANE [address] [place] [address] * POCT glucose (12/11/2024 3:29 PM CDT) [facility] Glucose, POC 141 70 - 199 mg/dL Comment:Testing performed by : [facility], [address] [place] [address]., [address] Blood 12/11/2024 3:29 PM CDT 12/11/2024 3:29 PM CDT us Notinfile Unknown LAB POCT ORDERABLES - DEVICE F inal Result Performing Organization Address [facility]/ZIP Co de Phone Number MARY JANE [address] [address] * (ABNORMAL) Troponin T high-sensitivity series (baseline, 2hr, 4hr, 6hr) (12/11/2024 3:01 PM CDT) [facility] Trop T hs 26(H) <=14 ng/L Comment: Interpretive Data For further hscTnT resources including the diagnostic algorithm and an aid in interpretation, copy and paste this link: https://nrl.testcatalog.org/show/hsTrop Current Interpretive Data last revised 2020. Testing performed by: [facility], [address] [place] [address]., [address] Blood 12/11/2024 3:01 PM CDT 12/11/2024 3:12 PM CDT Rosa MCKEON LAB BLOOD ORDERABLES Final Resu lt MARY JANE [address] [place] [address] * eGFR (12/11/2024 3:01 PM CDT) [facility] eGFR >90 >=60 mL/min/1. 73 m2 Comment: [...] reviewed 2021. Testing performed by: [facility], [address] [place] [address]., [address] Blood 12/11/2024 3:01 PM CDT 12/11/2024 3:12 PM CDT us Rosa MCKEON LAB BLOOD ORDERABLES Final Resu lt [facility] [address] [facility] Department [place] [address] * Pro B-type natriuretic peptide [...] Date: 2017. Testing performed by: [facility], [address] [place] [address]., [address] Blood 12/11/2024 3:01 PM CDT 12/11/2024 3:12 PM CDT Rosa MCKEON LAB BLOOD ORDERABLES Final Resu lt [facility] [address] [facility] Department of Laboratories [place], [place] [id number] * Pro B-type natriuretic peptide (12/11/2024 3:01 [...] Revised Date: 2017. Testing performed by: [address] [address] Blood 12/11/2024 3:01 PM CDT 12/11/2024 3:12 PM CDT us Rosa MCKEON LAB BLOOD ORDERABLES Final Resu lt MARY JANE [address] [facility] Department [place] [address] * Comprehensive metabolic panel (12/11/2024 3:01 PM CDT) Sodium 138 135 - 145 mmol/L Comment:Testing performed by : [address] [address] Potassium, pl 4.1 3.3 - 4.9 mmol/L [facility] Comment:Testing performed by : [address] [address] Chloride 99 97 - 110 mmol/L [facility] Comment:Testing performed by : [address] [address] CO2 25 22 - 32 mmol/L [facility] Comment:Testing performed by : [address] [address] Anion gap 14 2 - 15 mmol/L [facility] Comment:Testing performed by : [address] [address] BUN 18 6 - 25 mg/dL [facility] PHAM Comment:Testing performed by : [address] [address] Creatinine 0.70 0.60 - 1.10 mg/dL [facility] Comment:Testing performed by : [address] [address] Glucose 179 70 - 199 mg/dL [facility] Comment: [...] last revised 2022. Testing performed by: [address] [address] Calcium 10.0 8.5 - 10.3 mg/dL [facility] Comment:Testing performed by : [address] [address] Bilirubin, total 0.6 0.1 - 1.2 mg/dL [facility] Comment:Testing performed by : [address] [address] Protein, pl 7.8 6.5 - 8.5 g/dL [facility] Comment:Testing performed by : [address] [address] Albumin 4.1 3.5 - 5.0 g/dL [facility] Comment:Testing performed by : [address] [address] Alk phos 81 40 - 130 Units/L [facility] Comment:Testing performed by : [address] [address] ALT 21 7 - 45 Units/L [facility] Comment:Testing performed by : [address] [address] AST 21 10 - 45 Units/L [facility] Comment:Testing performed by : [address] [address] Blood 12/11/2024 3:01 PM CDT 12/11/2024 3:12 PM CDT us Rosa MCKEON LAB BLOOD ORDERABLES Final Resu lt MARY JANE MH [address] [facility] Department [place] [address] * XR Chest 1 Vw Portable (If [...] Olinda Bernal M.D. FT: FT Report ID: [id number] [place] Location: [id number] Procedure Note Olinda Wells MD - 12/11/2024 [...] Olinda Bernal M.D. FT: FT Report ID: [id number] [place] Location: [place] [address] Rosa [facility] IMG XR PROCEDURES Final Result * (ABNORMAL) Differential, auto (12/11/2024 2:23 PM CDT) Neutrophil abs 7.54(H) 1.50 - 6.50 K/cumm Comment:Testing performed by : [address] [address] Imm gran abs 0.04 0.00 - 0.10 K/cumm MARY JANE Comment:Testing performed by : [address] [address] Lymphocyte abs 2.07 0.80 - 3.30 K/cumm MARY JANE Comment:Testing performed by : [address] [address] Monocyte abs 0.86(H) 0.20 - 0.80 K/cumm MARY JANE Comment:Testing performed by : [address] [address] Eosinophil abs 0.23 0.00 - 0.50 K/cumm MARY JANE Comment:Testing performed by : [address] [address] Basophil abs 0.05 0.00 - 0.10 K/cumm MARY JANE Comment:Testing performed by : [address] [address] Neutrophil pct 69.8 % MARY JANE Comment: Interpretive Data Percent cell count reference ranges are not reported, since discordance with absolute values may lead to misinterpretation of CBC data. Current Interpretive Data was last revised on 2017. Testing performed by: [address] [place] [address] Imm gran pct 0.4 % [facility] Comment: Interpretive Data Percent cell count reference ranges are not reported, since discordance with absolute values may lead to misinterpretation of CBC data. Current Interpretive Data was last revised on 2017. Testing performed by: [address] [address] Lymphocyte pct 19.2 % [facility] Comment: Interpretive Data Percent cell count reference ranges are not reported, since discordance with absolute values may lead to misinterpretation of CBC data. Current Interpretive Data was last revised on 2017. Testing performed by: [address] [address] Monocyte pct 8.0 % [facility] Comment: Interpretive Data Percent cell count reference ranges are not reported, since discordance with absolute values may lead to misinterpretation of CBC data. Current Interpretive Data was last revised on 2017. Testing performed by: [address] [address] Eosinophil pct 2.1 % [facility] Comment: Interpretive Data Percent cell count reference ranges are not reported, since discordance with absolute values may lead to misinterpretation of CBC data. Current Interpretive Data was last revised on 2017. Testing performed by: [address] [address] Basophil pct 0.5 % [facility] Comment: Interpretive Data Percent cell count reference ranges are not reported, since discordance with absolute values may lead to misinterpretation of CBC data. Current Interpretive Data was last revised on 2017. Testing performed by: [address] [address] Blood 12/11/2024 2:23 PM CDT 12/11/2024 2:25 PM CDT us Rosa [facility] LAB BLOOD ORDERABLES Final Resu lt MARY JANE [address] [facility] Department [place] [address] * (ABNORMAL) CBC with auto differential (12/11/2024 2:23 PM CDT) [facility] Signature WBC 10.79(H) 3.80 - 9.90 K/cumm Comment:Testing performed by : [address] [address] Hgb 13.3 11.9 - 15.5 g/dL MARY JANE Comment:Testing performed by : [address] [address] Hct 40.8 35.6 - 45.5 % MARY JANE Comment:Testing performed by : [address] [address] Plt 313 150 - 400 K/cumm MARY JANE Comment:Testing performed by : [address] [address] MPV 9.8 9.1 - 12.3 fL MARY JANE Comment:Testing performed by : [address], [address] RBC 4.64 3.90 - 5.20 M/cumm MARY JANE Comment:Testing performed by : [address] [address] MCV 87.9 81.3 - 96.4 fL MARY JANE Comment:Testing performed by : [address] [address] MCH 28.7 27.1 - 33.3 pg MARY JANE Comment:Testing performed by : [address], [address] MCHC 32.6 32.3 - 35.7 g/dL MARY JANE Comment:Testing performed by : [address], [address] RDW CV 13.2 11.1 - 14.9 % MARY JANE Comment:Testing performed by : [address], [address] RDW SD 42.5 35.7 - 48.1 fL MARY JANE Comment:Testing performed by : [address] [address] NRBC abs 0.00 0.00 - 0.01 K/cumm MARY JANE Comment:Testing performed by : [address] [address] Blood Venous blood specimen / Unknown 12/11/2024 2:23 PM CDT 12/11/2024 2:25 PM CDT Rosa [facility] LAB BLOOD ORDERABLES Final Resu lt Performing Organization Address City/[facility]/ZIP Co de Phone Number MARY JANE [address] [facility] Department [place] [address] * ECG 12 lead (12/11/2024 2:12 PM CDT) Ventricular Rate EKG/Min 85 BPM [facility] Atrial Rate 85 BPM [facility] SC-Interval (MSEC) 106 ms [facility] QRS-Interval (MSEC) 82 ms [facility] QT-Interval (MSEC) 352 ms [facility] QTc 418 ms [facility] P [facility] -12 degrees [facility] R [facility] 8 degrees [facility] T [facility] 27 degrees [facility] Diagnosis Sinus rhythm with short SC Otherwise normal ECG When compared with ECG of 07-DEC-2024 22:32, Previous ECG has undetermined rhythm, needs review Confirmed by SAGAR DELEON M.D. ([id number]) on 12/11/2024 4:50:58 PM [facility] 12/11/2024 2:12 PM CDT 12/11/2024 4:50 PM CDT Rosa [facility] ECG ORDERABLES Final Result Performing Organization Address [facility] Co de Phone Number [facility] * POCT glucose (12/08/2024 1:54 AM CDT) Glucose, POC 112 70 - 199 mg/dL Comment:Testing performed by : [address] [address] Glucose comment 1 RN/MD Notified MARY JANE PHAM Comment:Testing performed by : [address] [address] Blood 12/08/2024 1:54 AM CDT 12/08/2024 1:54 AM CDT us Gil Diez DO LAB POCT ORDERABLES - DEVIC E Final Result MARY JANE PHAM [address] [facility] Department [place] [address] * (ABNORMAL) Urinalysis reflex to microscopic and culture Urine (12/08/2024 1:50 AM CDT) Color, ur Yellow Yellow Comment:Testing performed by : [address] [address] Clarity, ur Clear Clear MARY JANE Comment:Testing performed by : [address] [address] Specific gravity, ur 1.020 1.003 - 1.030 MARY JANE Comment:Testing performed by : [address] [address] pH, urine 5.5 MARY JANE Comment: Interpretive Data U rine pH is affected by diet, medications, systemic acid-base disturbances, and renal tubular function. pH may affect urinary stone formation. For example, urine pH below 6.0 may help reduce the tendency for calcium phosphate stones and pH greater than 6.0 may reduce the tendency for uric acid stone formation. Source: [facility] [employer] Current Interpretive Data was last revised on 2017 Testing performed by: [address] [address] Protein, ur ql Negative Negative MARY JANE Comment:Testing performed by : [address] [address] Glucose, ur ql Negative Negative MARY JANE Comment:Testing performed by : [address] [address] Ketones, ur Negative Negative MARY JANE PHAM Comment:Testing performed by : [address] [address] Bilirubin, ur Negative Negative MARY JANE PHAM Comment:Testing performed by : [address] [address] Blood, ur Trace(A) Negative MARY JANE PHAM Comment:Testing performed by : [place] [address], [place]., [address] Urobilinogen, ur <2.0 <2.0 mg/dL MARY JANE PHAM Comment:Testing performed by : [facility] [address] [place] [address], [place]., [address] Nitrite, ur Negative Negative MARY JANE PHAM Comment:Testing performed by : [facility] [address] [place] [address], [place]., [address] Leukocyte esterase, ur Negative Negative MARY JANE PHAM Comment:Testing performed by : [facility] [address] [place] [address], [place]., [address] UA reflex comment Reflex to microscopic UA will be performed. MARY JANE PHAM Comment:Testing performed by : [facility] [address] [place] [address], [place]., [address] Urine 12/08/2024 1:50 AM CDT 12/08/2024 1:53 AM CDT Gil Diez DO LAB MICROBIOLOGY - GENERAL ORDERABLES Final Result MARY JANE [facility] [facility] Department [place] [address] * (ABNORMAL) Urinalysis, microscopic only (12/08/2024 1:50 AM CDT) WBC, ur 0-5 0 - 5 /HPF Comment:Testing performed by : [facility] [address] [place] [address], [place]., [address] RBC, ur 0-2 0 - 2 /HPF MARY JANE PHAM Comment:Testing performed by : [facility] [address] [place] [address], [place]., [address] Epithelial cells, squamous, ur 6-10(A) 0 - 5 /HPF MARY JANE Comment:Testing performed by : [facility] [address] [place] [address], [place]., [address] Mucous, ur Present(A) MARY JANE PHAM Comment:Testing performed by : [address], [place]., [address] Culture Reflex Comment Reflex conditions for urine culture (WBC >10) not met. MARY JANE PHAM Comment:Testing performed by : [address], [place]., [address] Urine 12/08/2024 1:50 AM CDT 12/08/2024 1:53 AM CDT Gil Diez LAB URINE ORDERABLES Final Result Performing Organization Address [facility] de Phone Number MARY JANE [address] [address] * (ABNORMAL) Troponin T high-sensitivity (12/08/2024 1:17 AM CDT) Pathologist [facility] Trop T hs 28(H) <=14 ng/L Comment: Interpretive Data For further hscTnT resources including the diagnostic algorithm and an aid in interpretation, copy and paste this link: https://nrl.testcatalog.org/show/hsTrop Current Interpretive Data last revised 2020. Testing performed by: [address] [address] Blood 12/08/2024 1:17 AM CDT 12/08/2024 1:20 AM CDT Gil Diez DO LAB BLOOD ORDERABLES Final Result Performing Organization Address [facility] de Phone Number [address] [address] * Influenza A/B, RSV, and COVID-19 PCR Nasopharyngeal (12/08/2024 1:05 AM CDT) [facility] COVID-19 RNA Negative Negative Comment:Testing performed by : [address] [address] Influenza A RNA Negative Negative MARY JANE Comment:Testing performed by : [address] [address] Influenza B RNA Negative Negative MARY JANE Comment:Testing performed by : [address] [address] RSV RNA Negative Negative MARY JANE Comment: Interpretive data: Testing performed by [facility]. This test is performed using the Cepheid Xpert Xpress CoV-2/Flu/RSV plus assay. This is a multiplex, real-time reverse transcriptase PCR assay intended for the qualitative detection of nucleic acid from SARS-CoV-2, influenza A, influenza B, and respiratory syncytial virus. This assay has been cleared by the [place] Food and Drug administration. The performance characteristics have been verified by the [facility]. Results must be considered in the clinical context, and a negative result does not rule out infection. Interpretive Data last revised 2023 Testing performed by: [facility], [address] [place] [address]., [address] Nasopharyngeal 12/08/2024 1: 05 AM CDT 12/08/2024 1:10 AM CDT Narrative MARY JANE - 12/08/2024 1:49 AM CDT Is the Patient experiencing symptoms consistent with COVID?->Yes Gil Diez DO LAB MICROBIOLOGY - GENERAL ORDERABLES Final Result Performing Organization Address City/State/[facility] Co de Phone Number MARY JANE [address] [facility] Department [place] [address] * CT Chest WO Contrast [...] Juve Gallegos M.D. AR: VALERY Report ID: [id number] Reading Location: [id number] Procedure Note Juve Gallegos MD - 12/08/2024 [...] Juve Gallegos M.D. AR: VALERY Report ID: [id number] Reading Location: [id number] Gil Diez DO IMG CT PROCEDURES Final Res ult * POCT glucose (12/08/2024 12:32 AM CDT) Glucose, POC 92 70 - 199 mg/dL Comment:Testing performed by : [address] [address] Blood 12/08/2024 12:3 2 AM CDT 12/08/2024 12:32 AM CDT Gil Diez DO LAB POCT ORDERABLES - DEVIC E Final Result Performing Organization Address [facility] de Phone Number [address] [employer] [place] [address] * POCT glucose (12/08/2024 12:15 AM CDT) Glucose, POC 88 70 - 199 mg/dL Comment:Testing performed by : [address] [address] Glucose comment 1 RN/MD Notified [facility] Comment:Testing performed by : [address] [address] Blood 12/08/2024 12:1 5 AM CDT 12/08/2024 12:15 AM CDT Gil Diez DO LAB POCT ORDERABLES - DEVIC E Final Result Performing Organization Address City/[facility] de Phone Number [address] [place] [place] [address] * POCT glucose (12/07/2024 11:58 PM CDT) Glucose, POC 80 70 - 199 mg/dL Comment:Testing performed by : [facility], [address] [place] [address]., [address] Glucose comment 1 RN/MD Notified MARY JANE PHAM Comment:Testing performed by : [address] [address] Glucose comment 2 Will Repeat Test MARY JANE PHAM Comment:Testing performed by : [address] [address] Blood 12/07/2024 11:5 8 PM CDT 12/07/2024 11:58 PM CDT Gil Diez DO LAB POCT ORDERABLES - DEVIC E Final Result Performing Organization Address [facility] Co de Phone Number MARY JANE [address] [employer] [place] [address] * (ABNORMAL) POCT glucose (12/07/2024 11:42 PM CDT) [facility] Glucose, POC 67(L) 70 - 199 mg/dL Comment:Testing performed by : [address] [address] Glucose comment 1 RN/MD Notified MARY JANE Comment:Testing performed by : [address] [address] Blood 12/07/2024 11:4 2 PM CDT 12/07/2024 11:42 PM CDT Gil Diez DO LAB POCT ORDERABLES - DEVIC E Final Result Performing Organization Address [facility] Co de Phone Number [address] [place] [address] * CT Head WO Contrast (12/07/2024 11:26 [...] Patrick Zhou M.D. KH: KATH Report ID: [id number] Reading Location: [place] [address] Procedure Note Patrick Zohu MD - 12/07/2024 EXAM DESCRIPTION: CT HEAD [...] Patrick Zhou M.D. KH: KATH Report ID: [id number] Reading Location: [place] [address] Gil Diez DO IMG CT PROCEDURES Final Res ult * POCT glucose (12/07/2024 11:08 PM CDT) Glucose, POC 75 70 - 199 mg/dL Comment:Testing performed by : [address] [address] Blood 12/07/2024 11:0 8 PM CDT 12/07/2024 11:08 PM CDT Gil Diez DO LAB POCT ORDERABLES - DEVIC E Final Result Performing Organization Address City/[facility] Co de Phone Number [address] [place] [address] * POCT glucose (12/07/2024 11:07 PM CDT) Glucose, POC 71 70 - 199 mg/dL Comment:Testing performed by : [address] [address] Blood 12/07/2024 11:0 7 PM CDT 12/07/2024 11:07 PM CDT Gil Diez DO LAB POCT ORDERABLES - DEVIC E Final Result Performing Organization Address City/[facility] de Phone Number [address] [employer] [place] [address] * XR Chest 1 Vw [...] Patrick Zhou M.D. KH: KATH Report ID: [id number] Reading Location: [id number] Procedure Note Patrick Zhou MD - 12/07/2024 [...] Patrick Zhou M.D. KH: KATH Report ID: [id number] Reading Location: [place] [address] Gil Diez DO IMG XR PROCEDURES Final Res ult * (ABNORMAL) Troponin T high-sensitivity series (baseline, 2hr, 4hr, 6hr) (12/07/2024 10:47 PM CDT) Trop T hs 30(H) <=14 ng/L Comment: Interpretive Data For further hscTnT resources including the diagnostic algorithm and an aid in interpretation, copy and paste this link: https://nrl.testcatalog.org/show/hsTrop Current Interpretive Data last revised 2020. Testing performed by: [facility], [address] [place] [address]., [address] Blood 12/07/2024 10:4 7 PM CDT 12/07/2024 10:51 PM CDT Gil Diez DO LAB BLOOD ORDERABLES Final Result [facility] [address] [facility] Department [place] [address] * eGFR (12/07/2024 10:47 PM [...] was last reviewed 2021. Testing performed by: [address] [address] Blood 12/07/2024 10:4 7 PM CDT 12/07/2024 10:51 PM CDT Gil Diez DO LAB BLOOD ORDERABLES Final Result MARY JANE [facility] [facility] Department [place] [address] * (ABNORMAL) Differential, auto (12/07/2024 10:47 PM CDT) Neutrophil abs 7.66(H) 1.50 - 6.50 K/cumm Comment:Testing performed by : [address] [address] Imm gran abs 0.06 0.00 - 0.10 K/cumm MARY JANE Comment:Testing performed by : [address] [address] Lymphocyte abs 3.48(H) 0.80 - 3.30 K/cumm MARY JANE Comment:Testing performed by : [address] [address] Monocyte abs 1.03(H) 0.20 - 0.80 K/cumm MARY JANE Comment:Testing performed by : [address] [address] Eosinophil abs 0.22 0.00 - 0.50 K/cumm MARY JANE Comment:Testing performed by : [address] [address] Basophil abs 0.05 0.00 - 0.10 K/cumm MARY JANE Comment:Testing performed by : [address] [address] Neutrophil pct 61.3 % [facility] Comment: Interpretive Data Percent cell count reference ranges are not reported, since discordance with absolute values may lead to misinterpretation of CBC data. Current Interpretive Data was last revised on 2017. Testing performed by: [address] [address] Imm gran pct 0.5 % [facility] Comment: Interpretive Data Percent cell count reference ranges are not reported, since discordance with absolute values may lead to misinterpretation of CBC data. Current Interpretive Data was last revised on 2017. Testing performed by: [address] [address] Lymphocyte pct 27.8 % [facility] Comment: Interpretive Data Percent cell count reference ranges are not reported, since discordance with absolute values may lead to misinterpretation of CBC data. Current Interpretive Data was last revised on 2017. Testing performed by: [address] [address] Monocyte pct 8.2 % [facility] Comment: Interpretive Data Percent cell count reference ranges are not reported, since discordance with absolute values may lead to misinterpretation of CBC data. Current Interpretive Data was last revised on 2017. Testing performed by: [address] [address] Eosinophil pct 1.8 % [facility] Comment: Interpretive Data Percent cell count reference ranges are not reported, since discordance with absolute values may lead to misinterpretation of CBC data. Current Interpretive Data was last revised on 2017. Testing performed by: [address] [address] Basophil pct 0.4 % [facility] Comment: Interpretive Data Percent cell count reference ranges are not reported, since discordance with absolute values may lead to misinterpretation of CBC data. Current Interpretive Data was last revised on 2017. Testing performed by: [address] [address] Blood 12/07/2024 10:4 7 PM CDT 12/07/2024 10:51 PM CDT Gil Diez DO LAB BLOOD ORDERABLES Final Result MARY JANE XL [address] [facility] Department [place] [address] * Pro B-type natriuretic peptide [...] Date: 2017. Testing performed by: [facility], [address] [place] [address]., [address] Blood 12/07/2024 10:4 7 PM CDT 12/07/2024 10:51 PM CDT Gil Diez DO LAB BLOOD ORDERABLES Final Result [facility] [address] [facility] Department [place] [address] * (ABNORMAL) CBC with auto differential (12/07/2024 10:47 PM CDT) WBC 12.50(H) 3.80 - 9.90 K/cumm Comment:Testing performed by : [address] [address] Hgb 13.2 11.9 - 15.5 g/dL MARY JANE Comment:Testing performed by : [address] [address] Hct 41.9 35.6 - 45.5 % MARY JANE Comment:Testing performed by : [address] [address] Plt 315 150 - 400 K/cumm MARY JANE Comment:Testing performed by : [address] [address] MPV 9.7 9.1 - 12.3 fL MARY JANE Comment:Testing performed by : [address] [address] RBC 4.65 3.90 - 5.20 M/cumm MARY JANE Comment:Testing performed by : [address] [address] MCV 90.1 81.3 - 96.4 fL MARY JANE Comment:Testing performed by : [address] [address] MCH 28.4 27.1 - 33.3 pg MARY JANE Comment:Testing performed by : [address] [address] MCHC 31.5(L) 32.3 - 35.7 g/dL MARY JANE Comment:Testing performed by : [address] [address] RDW CV 13.3 11.1 - 14.9 % MARY JANE Comment:Testing performed by : [address] [address] RDW SD 43.7 35.7 - 48.1 fL MARY JANE PHAM Comment:Testing performed by : [address] [address] NRBC abs 0.00 0.00 - 0.01 K/cumm MARY JANE PHAM Comment:Testing performed by : [address] [address] Blood 12/07/2024 10:4 7 PM CDT 12/07/2024 10:51 PM CDT Gil Diez LAB BLOOD ORDERABLES Final Result Performing Organization Address City/[facility]/ZIP Co de Phone Number [address] [employer] [place] [address] * Magnesium (12/07/2024 10:47 PM CDT) Pathologist [facility] Magnesium 1.9 1.4 - 2.5 mg/dL Comment:Testing performed by : [address] [address] Blood 12/07/2024 10:4 7 PM CDT 12/07/2024 10:51 PM CDT Gil Diez LAB BLOOD ORDERABLES Final Result Performing Organization Address [facility]/ZIP Co de Phone Number [address] [place] [place] [address] * (ABNORMAL) Comprehensive metabolic panel (12/07/2024 10:47 PM CDT) Sodium 141 135 - 145 mmol/L Comment:Testing performed by : [address] [address] Potassium, pl 3.9 3.3 - 4.9 mmol/L MARY JANE PHAM Comment:Testing performed by : [address] [address] Chloride 102 97 - 110 mmol/L MARY JANE PHAM Comment:Testing performed by : [address] [address] CO2 25 22 - 32 mmol/L MARY JANE PHAM Comment:Testing performed by : [address] [address] Anion gap 14 2 - 15 mmol/L MARY JANE Comment:Testing performed by : [address] [address] BUN 19 6 - 25 mg/dL MARY JANE Comment:Testing performed by : [address] [address] Creatinine 0.78 0.60 - 1.10 mg/dL MARY JANE Comment:Testing performed by : [address] [address] Glucose 92 70 - 199 mg/dL MARY [...] last revised 2022. Testing performed by: [address] [address] Calcium 10.7(H) 8.5 - 10.3 mg/dL MARY JANE Comment:Testing performed by : [address] [address] Bilirubin, total 0.5 0.1 - 1.2 mg/dL MARY JANE Comment:Testing performed by : [address] [address] Protein, pl 8.4 6.5 - 8.5 g/dL MARY JANE Comment:Testing performed by : [address] [address] Albumin 4.1 3.5 - 5.0 g/dL MARY JANE Comment:Testing performed by : [address] [address] Alk phos 79 40 - 130 Units/L MARY JANE Comment:Testing performed by : [facility], [address] [place] [address]., [address] ALT 21 7 - 45 Units/L MARY JANE PHAM Comment:Testing performed by : [address] [address] AST 21 10 - 45 Units/L MARY JANE Comment:Testing performed by : [address] [address] Blood 12/07/2024 10:4 7 PM CDT 12/07/2024 10:51 PM CDT Gil Diez DO LAB BLOOD ORDERABLES Final Result Performing Organization Address City/[facility]/ZIP Co de Phone Number [facility] [address] [facility] Department [place] [address] * ECG 12 lead (12/07/2024 10:32 PM CDT) Ventricular Rate EKG/Min 78 BPM [facility] Atrial Rate 78 BPM [facility] SC-Interval (MSEC) 104 ms [facility] QRS-Interval (MSEC) 84 ms [facility] QT-Interval (MSEC) 392 ms [facility] QTc 446 ms [facility] P [facility] -65 degrees [facility] R [facility] 0 degrees [facility] T [facility] 44 degrees [facility] Diagnosis Sinus rhythm. Otherwise normal ECG When compared with ECG of 07-DEC-2024 22:32, Premature ventricular complexes are no longer Present Premature atrial complexes are now Present Confirmed by MD JOHNNA, VINCENT ([id number]) on 12/08/2024 11:31:38 PM [facility] 12/07/2024 10:3 2 PM CDT 12/08/2024 11:31 PM CDT Gil Diez DO ECG ORDERABLES Final Resul t [facility] * ECG 12 lead (12/07/2024 10:32 PM CDT) Ventricular Rate EKG/Min 75 BPM [facility] Atrial Rate 75 BPM [facility] SC-Interval (MSEC) 138 ms [facility] QRS-Interval (MSEC) 84 ms [facility] QT-Interval (MSEC) 360 ms [facility] QTc 402 ms [facility] P [facility] -78 degrees [facility] R [facility] -3 degrees [facility] T [facility] 33 degrees [facility] Diagnosis Unusual P axis and short SC, probable junctional rhythm with occasional Premature ventricular complexes Abnormal ECG When compared with ECG of 02-DEC-2024 15:33, Junctional rhythm has replaced Sinus rhythm Confirmed by MD OROPEZA ROBERT ([id number]), content editor RIMA GELLER ([id number]) on 12/08/2024 8:22:42 AM Also confirmed by MD OROPEZA ROBERT ([id number]), content editor KRISTINE LEIJA ([id number]) on 12/09/2024 8:25:14 AM [facility] 12/07/2024 10:3 2 PM CDT 12/09/2024 8:25 AM CDT us Gil Diez DO ECG ORDERABLES Edited Resu lt - Final Performing Organization Address City/[facility]/ZIP Co de Phone Number [facility] * (ABNORMAL) POCT glucose (12/05/2024 1:27 PM CDT) [facility] Glucose, POC 251(H) 70 - 199 mg/dL Comment:Testing performed by : [address] [address] Glucose comment 1 RN/MD Notified MARY JANE Comment:Testing performed by : [address] [address] Blood 12/05/2024 1:27 PM CDT 12/05/2024 1:27 PM CDT Kenzie Jiménez MD LAB POCT ORDERABLES - DE VICE Final Result Performing Organization Address City/[facility]/ZIP Co de Phone Number MARY JANE [address] [facility] Department [place] [address] * XR Chest PA Lateral [...] Barbara Man M.D. TW: TW Report ID: [id number] Reading Location: [id number] Procedure Note Barbara Man MD - 12/05/2024 [...] Barbara Man M.D. TW: TW Report ID: [id number] Reading Location: [id number] Kenzie Jiménez MD IMG XR PROCEDURES Final Result * POCT glucose (12/05/2024 8:38 AM CDT) [facility] Glucose, POC 144 70 - 199 mg/dL Comment:Testing performed by : [address], [address] Glucose comment 1 RN/MD Notified MARY JANE Comment:Testing performed by : [facility], [address] [place] [address]., [address] Blood 12/05/2024 8:38 AM CDT 12/05/2024 8:38 AM CDT Kenzie Jiménez MD LAB POCT ORDERABLES - DE VICE Final Result BCPUJA [address] [facility] Department [place] [address] * eGFR (12/05/2024 5:04 AM [...] was last reviewed 2021. Testing performed by: [address] [address] Blood 12/05/2024 5:04 AM CDT 12/05/2024 5:24 AM CDT us Santos Wallace MD LAB BLOOD ORDERABLES Final Res ult MARY JANE [address] [facility] Department [place] [address] * (ABNORMAL) CBC without differential (12/05/2024 5:04 AM CDT) WBC 11.17(H) 3.80 - 9.90 K/cumm Comment:Testing performed by : [address] [address] Hgb 12.2 11.9 - 15.5 g/dL MARY JANE PHAM Comment:Testing performed by : [address] [address] Hct 38.4 35.6 - 45.5 % MARY JANE PHAM Comment:Testing performed by : [address] [address] Plt 286 150 - 400 K/cumm MARY JANE PHAM Comment:Testing performed by : [address] [address] MPV 9.8 9.1 - 12.3 fL MARY JANE PHAM Comment:Testing performed by : [address] [address] RBC 4.27 3.90 - 5.20 M/cumm MARY JANE PHAM Comment:Testing performed by : [address] [address] MCV 89.9 81.3 - 96.4 fL MARY JANE PHAM Comment:Testing performed by : [address] [address] MCH 28.6 27.1 - 33.3 pg MARY JANE PHAM Comment:Testing performed by : [address] [address] MCHC 31.8(L) 32.3 - 35.7 g/dL MARY JANE PHAM Comment:Testing performed by : [address] [address] RDW CV 13.5 11.1 - 14.9 % MARY JANE PHAM Comment:Testing performed by : [address] [address] RDW SD 44.3 35.7 - 48.1 fL MARY JANE PHAM Comment:Testing performed by : [address] [address] NRBC abs 0.00 0.00 - 0.01 K/cumm MARY JANE PHAM Comment:Testing performed by : [address] [address] Blood 12/05/2024 5:04 AM CDT 12/05/2024 5:24 AM CDT us Santos Wallace MD LAB BLOOD ORDERABLES Final Res ult MARY JANE [facility] Department of Laboratories [place], [place] [id number] * Basic metabolic panel (12/05/2024 5:04 AM CDT) Sodium 138 135 - 145 mmol/L Comment:Testing performed by : [address] [address] Potassium, pl 3.7 3.3 - 4.9 mmol/L MARY JANE PHAM Comment:Testing performed by : [address] [address] Chloride 101 97 - 110 mmol/L MARY JANE PHAM Comment:Testing performed by : [address] [address] CO2 25 22 - 32 mmol/L MARY JANE PHAM Comment:Testing performed by : [address] [address] Anion gap 12 2 - 15 mmol/L MARY JANE Comment:Testing performed by : [address] [address] BUN 20 6 - 25 mg/dL MARY JANE Comment:Testing performed by : [address] [address] Creatinine 0.71 0.60 - 1.10 mg/dL MARY JANE Comment:Testing performed by : [address] [address] Glucose 159 70 - 199 mg/dL MARY [...] last revised 2022. Testing performed by: [address] [address] Calcium 9.5 8.5 - 10.3 mg/dL MARY JANE Comment:Testing performed by : [address] [address] Blood 12/05/2024 5:04 AM CDT 12/05/2024 5:24 AM CDT us Santos Wallace MD LAB BLOOD ORDERABLES Final Res ult BCPUJA [address] [facility] Department [place] [address] * POCT glucose (12/04/2024 8:45 PM CDT) [facility] Signature Glucose, POC 147 70 - 199 mg/dL Comment:Testing performed by : [address] [address] Blood 12/04/2024 8:45 PM CDT 12/04/2024 8:45 PM CDT Kenzie Jiménez MD LAB POCT ORDERABLES - DE VICE Final Result Performing Organization Address [facility] Co de Phone Number MARY JANE [address] [address] * POCT glucose (12/04/2024 4:27 PM CDT) Glucose, POC 153 70 - 199 mg/dL Comment:Testing performed by : [facility], [address] [place] [address]., [address] Blood 12/04/2024 4:27 PM CDT 12/04/2024 4:27 PM CDT Kenzie Jiménez MD LAB POCT ORDERABLES - DE VICE Final Result Performing Organization Address [facility] Co de Phone Number MARY JANE [address] [address] * NM Myocardial Amyloidosis Imaging [employer] [...] Olinda Bernal M.D. FT: FT Report ID: [id number] Reading Location: [id number] Procedure Note Olinda Wells MD - 12/04/2024 [...] Olinda Bernal M.D. FT: FT Report ID: [id number] Reading Location: [place] [address] Salinas Medina MD [facility] PROCEDURES Final Result * POCT glucose (12/04/2024 11:15 AM CDT) [facility] Glucose, POC 91 70 - 199 mg/dL Comment:Testing performed by : [facility], [address] [place] [address], [place]., [address] Blood 12/04/2024 11:1 5 AM CDT 12/04/2024 11:15 AM CDT us Kenzie Jiménez MD LAB POCT ORDERABLES - DE VICE Final Result MARY JANE [address] [place] [address] * POCT glucose (12/04/2024 7:57 AM CDT) Glucose, POC 150 70 - 199 mg/dL Comment:Testing performed by : [address] [address] Blood 12/04/2024 7:57 AM CDT 12/04/2024 7:57 AM CDT Kenzie Jiménez MD LAB POCT ORDERABLES - DE VICE Final Result Performing Organization Address City/[facility] Co de Phone Number MARY JANE [address] [place] [address] * eGFR (12/04/2024 5:35 AM CDT) eGFR [...] was last reviewed 2021. Testing performed by: [address] [address] Blood 12/04/2024 5:35 AM CDT 12/04/2024 6:37 AM CDT Kenzie Jiménez MD LAB BLOOD ORDERABLES Fin al Result MARY JANE [address] [facility] Department [place] [address] * (ABNORMAL) Differential, auto (12/04/2024 5:35 AM CDT) Neutrophil abs 7.29(H) 1.50 - 6.50 K/cumm Comment:Testing performed by : [address] [address] Imm gran abs 0.06 0.00 - 0.10 K/cumm MARY JANE Comment:Testing performed by : [address] [address] Lymphocyte abs 2.56 0.80 - 3.30 K/cumm MARY JANE Comment:Testing performed by : [address] [address] Monocyte abs 0.75 0.20 - 0.80 K/cumm MARY JANE Comment:Testing performed by : [address] [address] Eosinophil abs 0.21 0.00 - 0.50 K/cumm MARY JANE Comment:Testing performed by : [address] [address] Basophil abs 0.03 0.00 - 0.10 K/cumm MARY JANE Comment:Testing performed by : [address] [address] Neutrophil pct 66.8 % MARY JANE Comment: Interpretive Data Percent cell count reference ranges are not reported, since discordance with absolute values may lead to misinterpretation of CBC data. Current Interpretive Data was last revised on 2017. Testing performed by: [address] [address] Imm gran pct 0.6 % MARY JANE Comment: Interpretive Data Percent cell count reference ranges are not reported, since discordance with absolute values may lead to misinterpretation of CBC data. Current Interpretive Data was last revised on 2017. Testing performed by: [address] [address] Lymphocyte pct 23.5 % [facility] Comment: Interpretive Data Percent cell count reference ranges are not reported, since discordance with absolute values may lead to misinterpretation of CBC data. Current Interpretive Data was last revised on 2017. Testing performed by: [address] [address] Monocyte pct 6.9 % [facility] Comment: Interpretive Data Percent cell count reference ranges are not reported, since discordance with absolute values may lead to misinterpretation of CBC data. Current Interpretive Data was last revised on 2017. Testing performed by: [address] [address] Eosinophil pct 1.9 % [facility] Comment: Interpretive Data Percent cell count reference ranges are not reported, since discordance with absolute values may lead to misinterpretation of CBC data. Current Interpretive Data was last revised on 2017. Testing performed by: [address] [address] Basophil pct 0.3 % [facility] Comment: Interpretive Data Percent cell count reference ranges are not reported, since discordance with absolute values may lead to misinterpretation of CBC data. Current Interpretive Data was last revised on 2017. Testing performed by: [address] [address] Blood 12/04/2024 5:35 AM CDT 12/04/2024 6:37 AM CDT us Kenzie Jiménez MD LAB BLOOD ORDERABLES Fin al Result MARY JANE [address] [facility] Department [place] [address] * (ABNORMAL) Immunoglobulin free light chains (12/04/2024 5:35 AM CDT) Pathologist [facility] [place]/Lambda ratio [facility] 1.26 0.26 - 1.65 Comment: Interpretive Data The Binding Site FreeLite assay procedure was used. Results from different manufacturers or methods may not be comparable. Serial testing should be performed using the same methods and instrumentation. Current Interpretive Data was last revised on 2023. Testing performed by: [facility], [address] [place]., [address] [place] free light chain [facility] 3.37(H) 0.33 - 1.94 mg/dL MARY JANE PHAM Comment: Interpretive Data The Binding Site FreeLite assay procedure was used. Results from different manufacturers or methods may not be comparable. Serial testing should be performed using the same methods and instrumentation. Current Interpretive Data was last revised on 2023. Testing performed by: [facility], [address] [place]., [address] [place] free light chain [facility] 2.67(H) 0.57 - 2.63 mg/dL MARY JANE PHAM Comment: Interpretive Data The Binding Site FreeLite assay procedure was used. Results from different manufacturers or methods may not be comparable. Serial testing should be performed using the same methods and instrumentation. Current Interpretive Data was last revised on 2023. Testing performed by: [facility], [address] [place]., [address] Blood 12/04/2024 5:35 AM CDT 12/04/2024 9:21 AM CDT Salinas Medina MD LAB BLOOD ORDERABLES Fi nal Result MARY JANE PHAM [address] [facility] Department [place] [address] * (ABNORMAL) CBC with auto differential (12/04/2024 5:35 AM CDT) WBC 10.90(H) 3.80 - 9.90 K/cumm Comment:Testing performed by : [address] [address] Hgb 12.0 11.9 - 15.5 g/dL MARY JANE PHAM Comment:Testing performed by : [address] [place] [address] Hct 38.0 35.6 - 45.5 % MARY JANE Comment:Testing performed by : [address], [address] Plt 258 150 - 400 K/cumm MARY JANE Comment:Testing performed by : [address], [address] MPV 10.1 9.1 - 12.3 fL MARY JANE Comment:Testing performed by : [address], [address] RBC 4.18 3.90 - 5.20 M/cumm MARY JANE Comment:Testing performed by : [address], [address] MCV 90.9 81.3 - 96.4 fL MARY JANE Comment:Testing performed by : [address], [address] MCH 28.7 27.1 - 33.3 pg MARY JANE Comment:Testing performed by : [address], [address] MCHC 31.6(L) 32.3 - 35.7 g/dL MARY JANE Comment:Testing performed by : [address], [address] RDW CV 13.5 11.1 - 14.9 % MARY JANE Comment:Testing performed by : [address], [address] RDW SD 45.0 35.7 - 48.1 fL MARY JANE Comment:Testing performed by : [address], [address] NRBC abs 0.00 0.00 - 0.01 K/cumm MARY JANE Comment:Testing performed by : [address], [address] Blood 12/04/2024 5:35 AM CDT 12/04/2024 6:37 AM CDT us Kenzie Jiménez MD LAB BLOOD ORDERABLES Fin al Result [facility] [address] Department [place] [address] * Magnesium (12/04/2024 5:35 AM CDT) [facility] Magnesium 1.7 1.4 - 2.5 mg/dL Comment:Testing performed by : [address] [address] Blood 12/04/2024 5:35 AM CDT 12/04/2024 6:37 AM CDT Kenzie Jiménez MD LAB BLOOD ORDERABLES Fin al Result Performing Organization Address [facility] de Phone Number [address] [address] * (ABNORMAL) Hemoglobin A1c (12/04/2024 5:35 AM CDT) [facility] Hgb A1C 9.7(H) 4.0 - 5.6 % Comment:Testing performed by : [address] [address] Estimated Average Glucose 232 mg/dL [facility] Comment: The ADA recommends reporting an estimated Average Glucose (eAG) with all Hemoglobin A1c results using the equation derived from a study of 507 normal and diabetic adults. Minority populations were underrepresented and children were not included. (Diabetes Care 31:6185-6086, 2008). The eAG is not equivalent to a fasting glucose. Testing performed by: [address] [address] Blood 12/04/2024 5:35 AM CDT 12/04/2024 6:39 AM CDT us Salinas Medina MD LAB BLOOD ORDERABLES Fi nal Result Performing Organization Address [facility] Co de Phone Number [address] [address] * Lipid panel (12/04/2024 5:35 AM CDT) [...] revised on 2017. Testing performed by: [address] [address] Triglycerides 140 <=149 mg/dL MARY JANE Comment: [...] revised on 2017. Testing performed by: [address] [address] HDL 43 >=40 mg/dL MARY JANE Comment: [...] revised on 2017. Testing performed by: [address] [address] LDL, calculated 108 <=129 mg/dL MARY JANE [...] last revised on 2023. Testing performed by: [address] [address] Non-HDL Cholesterol 133 mg/dL MARY JANE Comment: [...] revised on 2017. Testing performed by: [address] [address] Chol/HDL ratio 4 MARY JANE Comment:Testing performed by : [address] [address] Blood 12/04/2024 5:35 AM CDT 12/04/2024 6:37 AM CDT Salinas Medina MD LAB BLOOD ORDERABLES [facility] Result MARY JANE [address] [facility] Department [place] [address] * (ABNORMAL) Comprehensive metabolic panel (12/04/2024 5:35 AM CDT) Sodium 136 135 - 145 mmol/L Comment:Testing performed by : [address] [address] Potassium, pl 3.9 3.3 - 4.9 mmol/L MARY JANE Comment:Testing performed by : [address], [place]., [address] Chloride 99 97 - 110 mmol/L MARY JANE Comment:Testing performed by : [address] [address] CO2 26 22 - 32 mmol/L MARY JANE Comment:Testing performed by : [address] [address] Anion gap 11 2 - 15 mmol/L MARY JANE Comment:Testing performed by : [address] [address] BUN 17 6 - 25 mg/dL MARY JANE Comment:Testing performed by : [address] [address] Creatinine 0.69 0.60 - 1.10 mg/dL MARY JANE Comment:Testing performed by : [address] [address] Glucose 149 70 - 199 mg/dL [facility] Comment: Interpretive Data Fasting glucose [...] last revised 2022. Testing performed by: [address] [address] Calcium 9.5 8.5 - 10.3 mg/dL MARY JANE Comment:Testing performed by : [address] [address] Bilirubin, total 0.8 0.1 - 1.2 mg/dL MARY JANE Comment:Testing performed by : [address] [address] Protein, pl 6.8 6.5 - 8.5 g/dL MARY JANE Comment:Testing performed by : [address] [address] Albumin 3.3(L) 3.5 - 5.0 g/dL MARY JANE Comment:Testing performed by : [address] [address] Alk phos 64 40 - 130 Units/L MARY JANE Comment:Testing performed by : [address] [address] ALT 17 7 - 45 Units/L MARY JANE Comment:Testing performed by : [address] [address] AST 15 10 - 45 Units/L MARY JANE Comment:Testing performed by : [address] [address] Blood 12/04/2024 5:35 AM CDT 12/04/2024 6:37 AM CDT Kenzie Jiménez MD LAB BLOOD ORDERABLES Fin al Result MARY JANE [address] [facility] Department [place] [address] * POCT glucose (12/03/2024 9:20 PM CDT) [facility] Signature Glucose, POC 105 70 - 199 mg/dL Comment:Testing performed by : [address] [address] Blood 12/03/2024 9:20 PM CDT 12/03/2024 9:20 PM CDT Kenzie Jiménez MD LAB POCT ORDERABLES - DE VICE Final Result Performing Organization Address City/[facility] Co de Phone Number MARY JANE [facility] [place] [address] * POCT glucose (12/03/2024 4:42 PM CDT) Glucose, POC 145 70 - 199 mg/dL Comment:Testing performed by : [address] [address] Glucose comment 1 Will Repeat Test MARY JANE Comment:Testing performed by : [address] [address] Glucose comment 2 RN/MD Notified MARY JANE Comment:Testing performed by : [address] [address] Blood 12/03/2024 4:42 PM CDT 12/03/2024 4:42 PM CDT us Kenzie Jiménez MD LAB POCT ORDERABLES - DE VICE Final Result Performing Organization Address [facility] Co id Phone Number MARY JANE [facility] [place] [address] * POCT glucose (12/03/2024 12:25 PM CDT) Glucose, POC 199 70 - 199 mg/dL Comment:Testing performed by : [address] [address] Glucose comment 1 Will Repeat Test MARY JANE Comment:Testing performed by : [address] [address] Glucose comment 2 RN/MD Notified MARY JANE Comment:Testing performed by : [address] [address] Blood 12/03/2024 12:2 5 PM CDT 12/03/2024 12:25 PM CDT us Kenzie Jiménez MD LAB POCT ORDERABLES - DE VICE Final Result MARY JANE [address] [facility] Department [place] [address] * TRANSTHORACIC ECHO (TTE) COMPLETE W DOPPLER/CF [...] AM Ht(Inch): 61 Wt(Lb): 275.99 BSA: 2.32 [employer] Operator: Coni Vee RDCS Location: [id number] Order Provider: PATRICK RICE Heart Rate: 76 BMI: 52.14 BP: 130 / 79 Ref Provider: PATRICK RICE PROCEDURES: Echocardiographic Report: ([id number]) Transthoracic complete echo with contrast, 2D, spectral [...] AM Ht(Inch): 61 Wt(Lb): 275.99 BSA: 2.32 [employer] Operator: Coni Vee TOYA Location: [id number] Order Provider:PATRICK RICE Heart Rate: 76 BMI: 52.14 BP: 130 / 79 Ref Provider: PATRICK RICE PROCEDURES: Echocardiographic Report: ([id number]) Transthoracic complete echo withcontrast, 2D, spectral and [...] LA Length 4C 5.56 cm MV A Nbt616.00 msec LA Volume BP 41.30 ml MV [...] * POCT glucose (12/03/2024 8:13 AM CDT) [facility] Glucose, POC 159 70 - 199 mg/dL Comment:Testing performed by : [address] [address] Glucose comment 1 Will Repeat Test MARY JANE Comment:Testing performed by : [address] [address] Glucose comment 2 RN/MD Notified MARY JANE PHAM Comment:Testing performed by : [address] [address] Blood 12/03/2024 8:13 AM CDT 12/03/2024 8:13 AM CDT us Kenzie Jiménez MD LAB POCT ORDERABLES - DE VICE Final Result MARY JANE PHAM [address] [facility] Department of Laboratories [place], [place] [id number] * eGFR (12/03/2024 5:13 AM CDT) [facility] eGFR >90 >=60 mL/min/1. 73 m2 Comment: [...] was last reviewed 2021. Testing performed by: [address] [address] Blood 12/03/2024 5:13 AM CDT 12/03/2024 5:37 AM CDT us Santos Wallace MD LAB BLOOD ORDERABLES Final Res ult MARY JANE [address] [facility] Department [place] [address] * (ABNORMAL) CBC without differential (12/03/2024 5:13 AM CDT) [facility] WBC 10.70(H) 3.80 - 9.90 K/cumm Comment:Testing performed by : [address] [address] Hgb 12.1 11.9 - 15.5 g/dL MARY JANE PHAM Comment:Testing performed by : [address] [address] Hct 37.8 35.6 - 45.5 % MARY JANE PHAM Comment:Testing performed by : [address] [address] Plt 258 150 - 400 K/cumm MARY JANE PHAM Comment:Testing performed by : [address] [address] MPV 9.8 9.1 - 12.3 fL MARY JANE PHAM Comment:Testing performed by : [address] [address] RBC 4.15 3.90 - 5.20 M/cumm MARY JANE PHAM Comment:Testing performed by : [address] [address] MCV 91.1 81.3 - 96.4 fL MARY JANE Comment:Testing performed by : [address] [address] MCH 29.2 27.1 - 33.3 pg MARY JANE PHAM Comment:Testing performed by : [address] [address] MCHC 32.0(L) 32.3 - 35.7 g/dL MARY JANE Comment:Testing performed by : [address] [address] RDW CV 13.7 11.1 - 14.9 % MARY JANE Comment:Testing performed by : [address] [address] RDW SD 45.7 35.7 - 48.1 fL MARY JANE PHAM Comment:Testing performed by : [address] [address] NRBC abs 0.00 0.00 - 0.01 K/cumm MARY JANE PHAM Comment:Testing performed by : [address] [address] Blood 12/03/2024 5:13 AM CDT 12/03/2024 5:42 AM CDT us Santos Wallace MD LAB BLOOD ORDERABLES Final Res ult MARY JANE [address] [facility] Department of Laboratories [place], [place] [id number] * Basic metabolic panel (12/03/2024 5:13 AM CDT) Sodium 139 135 - 145 mmol/L Comment:Testing performed by : [address], [place]., [address] Potassium, pl 3.8 3.3 - 4.9 mmol/L [facility] Comment:Testing performed by : [address], [place]., [address] Chloride 101 97 - 110 mmol/L [facility] Comment:Testing performed by : [address], [place]., [address] CO2 27 22 - 32 mmol/L [facility] Comment:Testing performed by : [address], [place]., [address] Anion gap 11 2 - 15 mmol/L [facility] Comment:Testing performed by : [address] [address] BUN 16 6 - 25 mg/dL [facility] Comment:Testing performed by : [address], [place]., [address] Creatinine 0.70 0.60 - 1.10 mg/dL [facility] Comment:Testing performed by : [address], [place]., [address] Glucose 170 70 - 199 mg/dL [facility] Comment: [...] last revised 2022. Testing performed by: [address] [address] Calcium 9.5 8.5 - 10.3 mg/dL MARY JANE Comment:Testing performed by : [address], [place]., [address] Blood 12/03/2024 5:13 AM CDT 12/03/2024 5:37 AM CDT us Santos Wallace MD LAB BLOOD ORDERABLES Final Res ult Performing Organization Address [facility] Co de Phone Number MARY JANE [address] [place] [address] * POCT glucose (12/02/2024 11:12 PM CDT) [facility] Glucose, POC 108 70 - 199 mg/dL Comment:Testing performed by : [address] [address] Glucose comment 1 RN/MD Notified MARY JANE Comment:Testing performed by : [address] [address] Blood 12/02/2024 11:1 2 PM CDT 12/02/2024 11:12 PM CDT us Santos Wallace MD LAB POCT ORDERABLES - DEVICE F inal Result Performing Organization Address [facility] Hospital/[facility] Co de Phone Number MARY JANE [address] [place] [address] * (ABNORMAL) Troponin T high-sensitivity 6-hour (12/02/2024 10:06 PM CDT) [facility] Trop T hs 24(H) <=14 ng/L Comment: Interpretive Data For further hscTnT resources including the diagnostic algorithm and an aid in interpretation, copy and paste this link: https://nrl.testcatalog.org/show/hsTrop Current Interpretive Data last revised 2020. Testing performed by: [address] [address] Trop T hs delta -1 ng/L MARY JANE PHAM Comment:Testing performed by : [address] [address] Trop T hs interp Insignificant MARY JANE PHAM Comment:Testing performed by : [address] [address] Blood 12/02/2024 10:0 6 PM CDT 12/02/2024 10:08 PM CDT Gil Diez DO LAB BLOOD ORDERABLES Final Result Performing Organization Address [facility]/ZIP Co de Phone Number MARY JANE [address] [place] [address] * POCT glucose (12/02/2024 10:03 PM CDT) Glucose, POC 110 70 - 199 mg/dL Comment:Testing performed by : [address] [address] Blood 12/02/2024 10:0 3 PM CDT 12/02/2024 10:03 PM CDT Santos Wallace MD LAB POCT ORDERABLES - DEVICE F inal Result Performing Organization Address [facility] de Phone Number MARY JANE [address] [address] * (ABNORMAL) Troponin T high-sensitivity 4-hour (12/02/2024 8:26 PM CDT) Trop T hs 22(H) <=14 ng/L Comment: Interpretive Data For further hscTnT resources including the diagnostic algorithm and an aid in interpretation, copy and paste this link: https://nrl.testcatalog.org/show/hsTrop Current Interpretive Data last revised 2020. Testing performed by: [address] [address] Trop T hs delta -3 ng/L MARY JANE Comment:Testing performed by : [address] [address] Trop T hs interp Insignificant MARY JANE Comment:Testing performed by : [address] [address] Blood 12/02/2024 8:26 PM CDT 12/02/2024 8:31 PM CDT Gil Diez DO LAB BLOOD ORDERABLES Final Result MARY JANE MH [address] [facility] Department [place] [address] * CT Chest PE (CTA) W Contrast [...] Perfecto Arguello M.D. LB: LB Report ID: [id number] Reading Location: [id number] Procedure Note Perfecto Arguello MD - 12/02/2024 [...] Perfecto Arguello M.D. LB: TAYLOR Report ID: [id number] Reading Location: [place] [address] Patrick Rice DO IMG CT PROCEDURES Final Res ult * Sepsis Lactate w/ Reflex (12/02/2024 6:19 PM CDT) [facility] Sepsis Lactate 1.2 0.7 - 2.0 mmol/L Comment:Testing performed by : [address] [address] Blood 12/02/2024 6:19 PM CDT 12/02/2024 6:22 PM CDT Patrick Rice DO LAB BLOOD ORDERABLES Final Result MARY JANE [address] [facility] Department [place] [address] * (ABNORMAL) Urinalysis reflex to microscopic and culture Urine (12/02/2024 6:19 PM CDT) Pathologist [facility] Color, ur Yellow Yellow Comment:Testing performed by : [address] [address] Clarity, ur Clear Clear MARY JANE Comment:Testing performed by : [address] [address] Specific gravity, ur 1.019 1.003 - 1.030 MARY JANE Comment:Testing performed by : [address] [address] pH, urine 7.0 MARY JANE Comment: Interpretive Data U rine pH is affected by diet, medications, systemic acid-base disturbances, and renal tubular function. pH may affect urinary stone formation. For example, urine pH below 6.0 may help reduce the tendency for calcium phosphate stones and pH greater than 6.0 may reduce the tendency for uric acid stone formation. Source: [facility] [place] Current Interpretive Data was last revised on 2017 Testing performed by: [facility], [address] [place] [address], [place]., [address] Protein, ur ql Negative Negative MARY JANE Comment:Testing performed by : [address], [place]., [address] Glucose, ur ql 4+(A) Negative MARY JANE Comment:Testing performed by : [address], [place]., [address] Ketones, ur Negative Negative MARY JANE Comment:Testing performed by : [address], [place]., [address] Bilirubin, ur Negative Negative MARY JANE Comment:Testing performed by : [address], [place]., [address] Blood, ur Negative Negative MARY JANE Comment:Testing performed by : [address], [place]., [address] Urobilinogen, ur <2.0 <2.0 mg/dL MARY JANE Comment:Testing performed by : [address] [address] Nitrite, ur Negative Negative MARY JANE Comment:Testing performed by : [address], [place]., [address] Leukocyte esterase, ur Negative Negative MARY JANE Comment:Testing performed by : [address], [place]., [address] UA reflex comment Reflex conditions for microscopic UA and culture not met. MARY JANE Comment:Testing performed by : [address], [place]., [address] Urine 12/02/2024 6:19 PM CDT 12/02/2024 6:22 PM CDT Patrick Rice LAB MICROBIOLOGY - GENERAL ORDERABLES Final Result MARY JANE [address] [facility] Department [place] [address] * (ABNORMAL) Drugs of Abuse Screen, Urine without Confirmation (12/02/2024 6:19 PM CDT) [facility] Amphetamine, ur Not Detected CutOff 500ng/mL Comment: Interpretive Data - Amphetamines: Samples containing greater than 500 ng/mL d-methamphetamine or other cross-reacting amphetamine compounds are reported as positive. Amphetamine immunoassays are subject to significant false positive rates due to cross-reactivity of non-amphetamine drugs. Confirmatory testing required for definitive results. Current Interpretive Data was last reviewed 2022. Testing performed by: [address] [address] Barbiturates, ur Not Detected CutOff 200ng/mL MARY JANE Comment: Interpretive Data - Barbiturates: Samples containing greater than 200 ng/mL secobarbital or other cross-reacting barbiturate compounds are reported as positive. False positive and false negative results are possible. Confirmatory testing required for definitive results. Current Interpretive Data was last reviewed 2022. Testing performed by: [address] [address] Benzodiazepines, ur Not Detected CutOff 100ng/mL MARY JANE Comment: Interpretive Data - Benzodiazepines: Samples containing greater than 100 ng/mL nordiazepam or other cross-reacting compounds are reported as positive. False positive and false negative results are possible. Confirmatory testing required for definitive results. Current Interpretive Data was last reviewed 2022. Testing performed by: [address] [address] Cannabinoids, ur Not Detected CutOff 50 ng/mL MARY JANE Comment: Interpretive Data - Cannabinoids: Samples containing greater than 50 ng/mL delta-9 THC -COOH or other cross- reacting compounds are reported as positive. False positive and false negative results are possible. Confirmatory testing required for definitive results. Current Interpretive Data was last reviewed 2022. Testing performed by: [address] [address] Cocaine, ur Not Detected CutOff 150ng/mL [facility] Comment: Interpretive Data - Cocaine: Samples containing greater than 150 ng/mL benzoylecgonine or other cross- reacting compounds are reported as positive. False positive and false negative results are possible. Confirmatory testing required for definitive results. Current Interpretive Data was last reviewed 2022. Testing performed by: [address] [address] Fentanyl, Ur Not Detected Cutoff 1 ng/mL [facility] Comment: Interpretive Data - Fentanyl: Samples containing greater than 1 ng/mL fentanyl or other cross-reacting fentanyl compounds are reported as positive. False positive and false negative results are possible. Confirmatory testing required for definitive results. Current Interpretive Data was last reviewed 2022. Testing performed by: [address] [address] Methadone, ur Not Detected CutOff 300ng/mL [facility] Comment: Interpretive Data - Methadone: Samples containing greater than 300 ng/mL d,l-methadone or other cross-reacting compounds are reported as positive. False positive and false negative results are possible. Confirmatory testing required for definitive results. Current Interpretive Data was last reviewed 2022. Testing performed by: [address] [address] Opiates, ur Screen Positive, presumptive (A) CutOff 300ng/mL [facility] Comment: Interpretive Data - Opiates: Samples containing greater than 300 ng/mL morphine or other cross-reacting compounds are reported as positive. False positive and false negative results are possible. Confirmatory testing required for definitive results. Current Interpretive Data was last reviewed 2022. Testing performed by: [address] [address] Oxycodone, ur Not Detected CutOff 100ng/mL [facility] Comment: Interpretive Data - Oxycodone: Samples containing greater than 100 ng/mL oxycodone or other cross-reacting compounds are reported as positive. False positive and false negative results are possible. Confirmatory testing required for definitive results. Current Interpretive Data was last reviewed 2022. Testing performed by: [address] [address] Phencyclidine, ur Not Detected CutOff 25 ng/mL MARY JANE Comment: Interpretive Data - Phencyclidine: Samples containing greater than 25 ng/mL phencyclidine or other cross-reacting compounds are reported as positive. False positive and false negative results are possible. Confirmatory testing required for definitive results. Current Interpretive Data was last reviewed 2022. Testing performed by: [address] [address] Urine Creatinine 64 mg/dL MARY JANE Comment: Interpretive Data Urine Creatinine: < 10 mg/dL is extremely dilute = or > 10 but < 20 mg/dL is dilute = or > 20 mg/dL is normal Current Interpretive Data was last revised on 2017. Testing performed by: [address] [address] Urine 12/02/2024 6:19 PM CDT 12/02/2024 6:22 PM CDT Narrative [facility] - 12/02/2024 6:46 PM CDT Drug of Abuse screening is performed by immunoassay for medical purposes only. This is not to be used for Pain Management purposes. Patrick Rice DO LAB URINE ORDERABLES Final Result MARY JANE [address] [facility] Department [place] [address] * (ABNORMAL) D-dimer, quantitative (12/02/2024 [...] last revised on 2019. Testing performed by: [address] [address] Blood 12/02/2024 6:19 PM CDT 12/02/2024 6:22 PM CDT Patrick Saldana Rice DO LAB BLOOD ORDERABLES Final Result Performing Organization Address City/[facility] Co de Phone Number MARY JANE [address] [facility] [place] [address] * (ABNORMAL) Troponin T high-sensitivity 2-hour (12/02/2024 5:53 PM CDT) Pathologist [facility] [place] Trop T hs 23(H) <=14 ng/L Comment: Interpretive Data For further hscTnT resources including the diagnostic algorithm and an aid in interpretation, copy and paste this link: https://nrl.testcatalog.org/show/hsTrop Current Interpretive Data last revised 2020. Testing performed by: [address] [address] Trop T hs delta -2 ng/L MARY JANE Comment:Testing performed by : [address] [address] Trop T hs interp Insignificant MARY JANE Comment:Testing performed by : [address] [address] Blood 12/02/2024 5:53 PM CDT 12/02/2024 5:55 PM CDT Gil Diez DO LAB BLOOD ORDERABLES Final Result Performing Organization Address [facility] Co de Phone Number [facility] [address] [facility] [place] [address] * POCT glucose (12/02/2024 4:25 PM CDT) Glucose, POC 195 70 - 199 mg/dL Comment:Testing performed by : [address] [place] [address] Blood 12/02/2024 4:25 PM CDT 12/02/2024 4:25 PM CDT Notinfile Unknown LAB POCT ORDERABLES - DEVICE F inal Result Performing Organization Address [facility] de Phone Number MARY JANE [address] [address] * (ABNORMAL) Troponin T high-sensitivity series (baseline, 2hr, 4hr, 6hr) (12/02/2024 3:57 PM CDT) Trop T hs 25(H) <=14 ng/L Comment: Interpretive Data For further hscTnT resources including the diagnostic algorithm and an aid in interpretation, copy and paste this link: https://nrl.testcatalog.org/show/hsTrop Current Interpretive Data last revised 2020. Testing performed by: [address] [address] Blood 12/02/2024 3:57 PM CDT 12/02/2024 4:11 PM CDT Patrick Rice DO LAB BLOOD ORDERABLES Final Result Performing Organization Address [facility] de Phone Number [address] [address] * eGFR (12/02/2024 3:57 PM CDT) eGFR [...] was last reviewed 2021. Testing performed by: [address] [address] Blood 12/02/2024 3:57 PM CDT 12/02/2024 4:11 PM CDT Patrick Rice DO LAB BLOOD ORDERABLES Final Result MARY JANE [facility] Department [place] [address] * (ABNORMAL) Differential, auto (12/02/2024 3:57 PM CDT) Neutrophil abs 7.87(H) 1.50 - 6.50 K/cumm Comment:Testing performed by : [address] [address] Imm gran abs 0.05 0.00 - 0.10 K/cumm MARY JANE Comment:Testing performed by : [address] [address] Lymphocyte abs 1.99 0.80 - 3.30 K/cumm MARY JANE Comment:Testing performed by : [address] [address] Monocyte abs 0.54 0.20 - 0.80 K/cumm MARY JANE Comment:Testing performed by : [address] [address] Eosinophil abs 0.10 0.00 - 0.50 K/cumm MARY JANE Comment:Testing performed by : [address] [address] Basophil abs 0.03 0.00 - 0.10 K/cumm MARY JANE Comment:Testing performed by : [address] [address] Neutrophil pct 74.4 % [facility] Comment: Interpretive Data Percent cell count reference ranges are not reported, since discordance with absolute values may lead to misinterpretation of CBC data. Current Interpretive Data was last revised on 2017. Testing performed by: [address] [address] Imm gran pct 0.5 % [facility] Comment: Interpretive Data Percent cell count reference ranges are not reported, since discordance with absolute values may lead to misinterpretation of CBC data. Current Interpretive Data was last revised on 2017. Testing performed by: [address] [address] Lymphocyte pct 18.8 % [facility] Comment: Interpretive Data Percent cell count reference ranges are not reported, since discordance with absolute values may lead to misinterpretation of CBC data. Current Interpretive Data was last revised on 2017. Testing performed by: [address] [address] Monocyte pct 5.1 % [facility] Comment: Interpretive Data Percent cell count reference ranges are not reported, since discordance with absolute values may lead to misinterpretation of CBC data. Current Interpretive Data was last revised on 2017. Testing performed by: [address] [address] Eosinophil pct 0.9 % [facility] Comment: Interpretive Data Percent cell count reference ranges are not reported, since discordance with absolute values may lead to misinterpretation of CBC data. Current Interpretive Data was last revised on 2017. Testing performed by: [address] [address] Basophil pct 0.3 % [facility] Comment: Interpretive Data Percent cell count reference ranges are not reported, since discordance with absolute values may lead to misinterpretation of CBC data. Current Interpretive Data was last revised on 2017. Testing performed by: [address] [address] Blood 12/02/2024 3:57 PM CDT 12/02/2024 4:14 PM CDT Patrick Rice DO LAB BLOOD ORDERABLES Final Result MARY JANE [address] [facility] Department [place] [address] * Pro B-type natriuretic peptide [...] Date: 2017. Testing performed by: [facility], [address] [place] [address]., [address] Blood 12/02/2024 3:57 PM CDT 12/02/2024 4:11 PM CDT Patrick Saldana Rice DO LAB BLOOD ORDERABLES Final Result MARY JANE [address] [facility] Department [place] [address] * (ABNORMAL) CBC with auto differential (12/02/2024 3:57 PM CDT) WBC 10.58(H) 3.80 - 9.90 K/cumm Comment:Testing performed by : [address] [address] Hgb 12.2 11.9 - 15.5 g/dL MARY JANE Comment:Testing performed by : [address] [address] Hct 37.6 35.6 - 45.5 % MARY JANE Comment:Testing performed by : [address] [address] Plt 263 150 - 400 K/cumm MARY JANE Comment:Testing performed by : [address] [address] MPV 10.2 9.1 - 12.3 fL MARY JANE Comment:Testing performed by : [address] [address] RBC 4.19 3.90 - 5.20 M/cumm MARY JANE Comment:Testing performed by : [address] [address] MCV 89.7 81.3 - 96.4 fL MARY JANE Comment:Testing performed by : [address] [address] MCH 29.1 27.1 - 33.3 pg MARY JANE Comment:Testing performed by : [address] [address] MCHC 32.4 32.3 - 35.7 g/dL MARY JANE Comment:Testing performed by : [address] [address] RDW CV 13.7 11.1 - 14.9 % MARY JANE Comment:Testing performed by : [address] [address] RDW SD 45.0 35.7 - 48.1 fL MARY JANE Comment:Testing performed by : [address] [address] NRBC abs 0.00 0.00 - 0.01 K/cumm MARY JANE Comment:Testing performed by : [address] [address] Blood 12/02/2024 3:57 PM CDT 12/02/2024 4:14 PM CDT Patrick Les Rice LAB BLOOD ORDERABLES Final Result MARY JANE [address] [facility] Department [place] [address] * (ABNORMAL) Comprehensive metabolic panel (12/02/2024 3:57 PM CDT) Sodium 139 135 - 145 mmol/L Comment:Testing performed by : [address] [address] Potassium, pl 4.5 3.3 - 4.9 mmol/L MARY JANE Comment:Testing performed by : [address] [address] Chloride 101 97 - 110 mmol/L MARY JANE Comment:Testing performed by : [address] [address] CO2 26 22 - 32 mmol/L MARY JANE Comment:Testing performed by : [address] [address] Anion gap 12 2 - 15 mmol/L MARY JANE Comment:Testing performed by : [address] [address] BUN 17 6 - 25 mg/dL MARY JANE Comment:Testing performed by : [address] [address] Creatinine 0.60 0.60 - 1.10 mg/dL MARY JANE Comment:Testing performed by : [address] [address] Glucose 252(H) 70 - 199 mg/dL MARY [...] last revised 2022. Testing performed by: [address] [address] Calcium 9.8 8.5 - 10.3 mg/dL MARY JANE Comment:Testing performed by : [address] [address] Bilirubin, total 0.5 0.1 - 1.2 mg/dL MARY JANE Comment:Testing performed by : [address] [address] Protein, pl 7.8 6.5 - 8.5 g/dL MARY JANE Comment:Testing performed by : [address] [address] Albumin 4.0 3.5 - 5.0 g/dL MARY JANE Comment:Testing performed by : [address] [address] Alk phos 79 40 - 130 Units/L MARY JANE Comment:Testing performed by : [address] [address] ALT 23 7 - 45 Units/L MARY JANE Comment:Testing performed by : [address] [address] AST 22 10 - 45 Units/L MARY JANE Comment:Testing performed by : [address] [address] Blood 12/02/2024 3:57 PM CDT 12/02/2024 4:11 PM CDT Patrick Rice DO LAB BLOOD ORDERABLES Final Result MARY JANE [address] [facility] [place] [address] * XR Chest 1 Vw Portable (If [...] Wilfrid Valdez M.D. MZ: MZ Report ID: [id number] Reading Location: [place] [address] Procedure Note Wilfrid Valdez MD - 12/02/2024 [...] Wilfrid Valdez M.D. MZ: MZ Report ID: [id number] Reading Location: [place] [address] Patrick Rice DO IMG XR PROCEDURES Final Res ult * ECG 12 lead (12/02/2024 3:33 PM CDT) Ventricular Rate EKG/Min 78 BPM [facility] Atrial Rate 78 BPM [facility] SC-Interval (MSEC) 122 ms [facility] QRS-Interval (MSEC) 82 ms [facility] QT-Interval (MSEC) 380 ms [facility] QTc 433 ms [facility] P [facility] 7 degrees [facility] R [facility] 3 degrees [facility] T [facility] 11 degrees [facility] Diagnosis Normal sinus rhythm Normal ECG When compared with ECG of 01-JUL-2024 14:05, No significant change Confirmed by SULTAN MARTINEZ M.D. ([id number]) on 12/03/2024 4:50:33 PM [facility] 12/02/2024 3:33 PM CDT 12/03/2024 4:50 PM CDT Patrick Rice DO ECG ORDERABLES Final Resul t [facility] * Cardiology Document Scan (11/19/2024 11:45 AM [...] by the International Society of Clinical Densitometry. [id number] us Khris Arthur MD IMG DXA PROCEDURES [...] agrees with it. ACC# Date Time Exam [id number] Aug 19, 2016 14:27:00 [facility] [address] Diag Mamm, inc CAD, unilat L Technologist(s): Carla Harris; ; [id number] Aug 19, 2016 15:39:00 [facility] [address] Breast US unilateral, ltd L ACC# Date Time Exam [id number] Aug 19, 2016 14:27:00 [facility] [address] Diag Mamm, inc CAD, unilat L Technologist(s): Carla Harris; ; [id number] Aug 19, 2016 15:39:00 [facility] [address] Breast US unilateral, ltd L EXAMINATION: LEFT [...] SARABIA M.D. on Aug 19 2016 4:20P [id number] Procedure Note Miscellaneous, Not In File / Provider, MD Tyler - 09/17/2016 ANTHONY SARABIA M.D. JUDY RINCON M.D. FINAL REPORT The radiology attending physician has personally reviewed this study, and has reviewed and/or edited this written report and agrees with it. ACC# Date Time Exam [id number] Aug 19, 2016 14:27:00 [facility] [address] Diag Mamm, inc CAD, unilat L Technologist(s): Carla Harris; ; [id number] Aug 19, 2016 15:39:00 [facility] [address] Breast US unilateral, ltd L ACC# Date Time Exam [id number] Aug 19, 2016 14:27:00 C 72752 Diag Mamm, inc CAD, unilat L Technologist(s): Carla Harris; ; [id number] Aug 19, 2016 15:39:00 C 49523 Breast US unilateral, ltd L EXAMINATION: LEFT [...] SARABIA M.D. on Aug 19 2016 4:20P [id number] us Not In File Miscellaneous IMG MAMMO PROCEDURES F inal Result from Last 3 Months or Most Recently Relevant to Health Maintenance Insurance [employer] [place] [employer] [place] [employer] [employer] [facility] [place] Advance Directives For more information, please contact: [phone] Documents on File Type Date Recorded Patient Learning And Development Officer Expl anation ADVANCE DIRECTIVE 12/23/2021 2:49 PM Power of Cartography Professor-Medical ADVANCE DIRECTIVE 12/23/2021 2:49 PM Living Will [...] Agents on File Name Relationship Healthcare Agent [facility] p Communication Yunior Marques Daughter Health Care Agent Jimmie Marques Spouse First Alternate Health Care Agent Care Teams Training Program Assistant Relationship Specialty Start Date End Date Justen Gale MD [address] [address] PCP - General 10/09/17 Liu Jerez MD Consulting Physician Gastroenterology 07/28/17 [place] [address] [facility] [address] [place] [address] Consulting Physician Pulmonary Disease 08/03/17 Khris Arthur MD [address] [facility] [address] [place] [address] Medical Oncologist/Insole Channeler Medical Oncology 10/23/17 [place] [address] [facility] [address] [place] [address] Surgeon Orthopedic Surgery 10/23/17 [place] [address] [facility] [address] [place] [address] Consulting Physician Pain Management 10/23/17 [place] [address] [facility] [address] [place] [address] Referring Physician General Surgery 01/26/18 [place] [address] [facility] [address] [place] [address] Consulting Physician Neurology 01/26/18
--- OUTSIDE RECORDS SUMMARY | 2025-02-03 15:51 | XMS_ITS | Encounter Summary ---
Author Organization [facility] Address [address] [place] [address] Phone Care Team Providers Care Child Psychologist Name Role Phone Justen Gale MD Primary Care Provider [phone] David Roberts APRN, LEGAL ADMINISTRATOR Unavailable [phone] Annel Rod MD Unavailable Reason for Visit * Reason Comments Medication Refill Encounter Details Date Type Department Care Team (Late st Contact Info) Description 08/30/2022 Refill [facility] #2 [place] [address] Justen Gale MD #[address] [address] Medication Refill Social History Tobacco Use Types [...] Office Visit Pili Elkins APRN, NETTA [facility] 05/02/22 [facility] Office Visit Pili Elkins APRN, NETTA [facility] 01/03/22 Office Visit Dannielle Berg PAC [facility] 12/07/21 Office Visit Pili Elkins APRN, NETTA [facility] 11/09/21 Office Visit Pili Elkins APRN, NETTA [facility] [place] 10/08/21 Office Visit Angelito Alegria APRN, NETTA [facility] [place] 08/30/21 Office Visit Justen Gale MD [facility] Showing recent visits within past 365 days and meeting all other requirements Future Appointments No visits were found meeting these conditions. Showing future appointments within next 90 days and meeting all other requirements documented in this encounter Plan of Treatment Upcoming Encounters Date Type Department Care Team (Late st Contact Info) Description 03/19/2025 2:00 PM CARBON DIOXIDE OPERATOR Office Visit [facility] - Endocrinology - [place] #2 [place] [address] Annel Rod MD #[address] [address] 05/29/2025 1:30 PM CARBON DIOXIDE OPERATOR [facility] #2 [place] [address] Justen Gale MD #[address] [address] documented as of this encounter Visit Diagnoses Not on filedocumented in this encounter Additional Health Concerns Infection Onset Date Last Indicated Resolved Time COVID - 19 08/01/2024 08/01/2024 08/01/2024 3:20 PM CDT Respiratory Rule-Out 11/18/2024 11/18/2024 025 7:18 AM CDT Assessment Noted Time PHQ-9 Depression Total Score: 0 07/21/19 21 3:00 PM CDT documented as of this encounter Care Teams Child Psychologist Relationship Specialty Start Date End Date Justen Gale MD #[address] [address] PCP - General Family Medicine 10/17/17 David Roberts, REGISTERED DENTAL ASSISTANT, LEGAL ADMINISTRATOR #2 [place] [address] Nurse Practitioner Advanced Practice Nurse 01/31/22 Annel Rod MD [address] [address] Consulting Physician Endocrinology 07/01/22 documented as of this encounter
--- OUTSIDE RECORDS SUMMARY | 2025-02-03 15:51 | XMS_ITS | Encounter Summary ---
Author Organization [facility] Address [address] [place] [address] Phone Care Team Providers Care Solvent Process Extractor Operator Name Role Phone Justen Gale MD Primary Care Provider [phone] David Roberts APRN, SENIOR ANALYST Unavailable [phone] Annel Rod MD Unavailable Reason for Visit * Reason Comments Medication Refill Encounter Details Date Type Department Care Team (Late st Contact Info) Description 09/30/2023 Refill [facility] - [place] #2 [place] [address] Annel Rod MD #[address] [address] Medication Refill Social History Tobacco [...] CDT Medication(s) refilled and signed per [facility] Chronic Medication Refill Standing Order for Pediatric and Adult Patients. documented in this encounter Plan of Treatment Upcoming Encounters Date Type Department Care Team (Late st Contact Info) Description 03/19/2025 2:00 PM NUCLEAR CHEMISTRY TECHNICIAN Office Visit [facility] - Endocrinology - [place] #2 [place] [address] Annel Rod MD #[address] [address] 05/29/2025 1:30 PM NUCLEAR CHEMISTRY TECHNICIAN Office Visit [facility] Medical Group - Family Medicine - [place] #2 [place] [address] Justen Gale MD #[address] [address] documented as of this encounter Visit Diagnoses Not on filedocumented in this encounter Additional Health Concerns Infection Onset Date Last Indicated Resolved Time COVID - 19 08/01/2024 08/01/2024 08/01/2024 3:20 PM CDT Respiratory Rule-Out 11/18/2024 11/18/2024 025 7:18 AM CDT Assessment Noted Time PHQ-9 Depression Total Score: 8 01/18/20 23 2:24 PM CDT documented as of this encounter Care Teams Solvent Process Extractor Operator Relationship Specialty Start Date End Date Justen Gale MD #2 [facility] [address] [place] [address] PCP - General Family Medicine 10/17/17 David Roberts APRN, SENIOR ANALYST #2 [place] [address] Nurse Practitioner Advanced Practice Nurse 01/31/22 Annel Rod MD #[address] [phone] Consulting Physician Endocrinology 07/01/22 documented as of this encounter
--- OUTSIDE RECORDS SUMMARY | 2025-02-03 15:51 | XMS_ITS | Encounter Summary ---
Author Organization [facility] Address [address] [place] [address] Phone Care Team Providers Care Avionics Mechanic Name Role Phone Justen Gale MD Primary Care Provider [phone] David Roberts APRN, ACCOUNTING BOOKKEEPER Unavailable [phone] Annel Rod MD Unavailable Reason for Visit * Reason Comments Medication Refill Encounter Details Date Type Department Care Team (Late st Contact Info) Description 07/12/2022 Refill [facility] Medicine [facility] #2 [place] [address] Justen Gale MD #[address] [address] Medication Refill Social History Tobacco Use Types [...] 07/05/22 Office Visit Pili Elkins APRN, NETTA [facility] [place] 05/02/22 Office Visit Justen Gale MD [facility] [place] 03/03/22 Office Visit Pili Elkins APRN, ACCOUNTING BOOKKEEPER [facility] [place] 01/03/22 Office Visit Dannielle Berg PAC [facility] [place] 12/07/21 Office Visit Pili Elkins APRN, NETTA [facility] [place] 11/09/21 Office Visit Pili Elkins APRN, NETTA [facility] [place] 10/08/21 Office Visit Angelito Alegria APRN, NETTA [facility] [place] 08/30/21 Office Visit Justen Gale MD [facility] Showing recent visits within past 365 days and meeting all other requirements Future Appointments No visits were found meeting these conditions. Showing future appointments within next 90 days and meeting all other requirements documented in this encounter Plan of Treatment Upcoming Encounters Date Type Department Care Team (Late st Contact Info) Description 03/19/2025 2:00 PM DEBT COLLECTION SPECIALIST Office Visit [facility] Endocrinology [facility] #2 [place] [address] Annel Rod MD #[address] [address] 05/29/2025 1:30 PM DEBT COLLECTION SPECIALIST Office Visit [facility] Family Medicine [facility] #2 [place] [address] Justen Gale MD #[address] [address] documented as of this encounter Visit Diagnoses Not on filedocumented in this encounter Additional Health Concerns Infection Onset Date Last Indicated Resolved Time COVID - 19 08/01/2024 08/01/2024 08/01/2024 3:20 PM CDT Respiratory Rule-Out 11/18/2024 11/18/2024 025 7:18 AM CDT Assessment Noted Time PHQ-9 Depression Total Score: 0 07/21/19 21 3:00 PM CDT documented as of this encounter Care Teams Avionics Mechanic Relationship Specialty Start Date End Date Justen Gale MD #[address] [address] PCP - General Family Medicine 10/17/17 David Roberts, STRAP CUTTING MACHINE OPERATOR, ACCOUNTING BOOKKEEPER #2 [place] [address] Nurse Practitioner Advanced Practice Nurse 01/31/22 Annel Rod MD #[address] [place] [address] Consulting Physician Endocrinology 07/01/22 documented as of this encounter
--- OUTSIDE RECORDS SUMMARY | 2025-02-03 15:51 | XMS_ITS | Encounter Summary ---
Author Organization [facility] Address [address] [place] [address] Phone Care Team Providers Care Surveillance Inspector Name Role Phone Justen Gale MD Primary Care Provider [phone] David Roberts APRN, MARKETING TECHNOLOGY SPECIALIST Unavailable [phone] Annel Rod MD Unavailable Reason for Visit * Reason Comments Medication Refill Encounter Details Date Type Department Care Team (Late st Contact Info) Description 08/07/2023 Refill [facility] - [place] #2 [place] [address] Annel Rod MD #[address] [address] Medication Refill Social History Tobacco [...] st Contact Info) Description 03/19/2025 2:00 PM DIRT BIKE MECHANIC Office Visit [facility] Medical [facility] - Endocrinology - [place] #2 [place] [address] Annel Rod MD #[address] [address] 05/29/2025 1:30 PM DIRT BIKE MECHANIC Office Visit [facility] Medical Group - Family Medicine - [place] #2 [place] [address] Justen Gale MD #[address] [address] documented as of this encounter Visit Diagnoses Not on filedocumented in this encounter Additional Health Concerns Infection Onset Date Last Indicated Resolved Time COVID - 19 08/01/2024 08/01/2024 08/01/2024 3:20 PM CDT Respiratory Rule-Out 11/18/2024 11/18/2024 025 7:18 AM CDT Assessment Noted Time PHQ-9 Depression Total Score: 8 01/18/20 23 2:24 PM CDT documented as of this encounter Care Teams Surveillance Inspector Relationship Specialty Start Date End Date Justen Gale MD #2 [facility] [address] [place] [address] PCP - General Family Medicine 10/17/17 David Roberts APRN, MARKETING TECHNOLOGY SPECIALIST #2 [place] [address] Nurse Practitioner Advanced Practice Nurse 01/31/22 Annel Rod MD #[address] [phone] Consulting Physician Endocrinology 07/01/22 documented as of this encounter
--- OUTSIDE RECORDS SUMMARY | 2025-02-03 15:51 | XMS_ITS | Encounter Summary ---
Author Organization [facility] Address [address] [place] [address] Phone Care Team Providers Care Cigar Head Puncher Name Role Phone Justen Gale MD Primary Care Provider [phone] David Roberts APRN, FINISHER SPECIAL STOCKS Unavailable [phone] Annel Rod MD Unavailable Encounter Details Date Type Department Care Team (Late st Contact Info) Description 06/05/2020 [facility] [address] [place] [address] Pili Elkins, JAILOR, FINISHER SPECIAL STOCKS #[address] [address] Frequency of micturition Social History [...] COVID-19? No / Unsure 2020 11:37 AM FILLETER documented as of this encounter Plan of Treatment Upcoming Encounters Date Type Department Care Team (Late st Contact Info) Description 03/19/2025 2:00 PM FILLETER Office Visit [facility] Medical [facility] - Endocrinology [facility] #2 [place] [address] Annel Rod MD #2 [facility] [address] [place] [address] 05/29/2025 1:30 PM FILLETER Office Visit [facility] - Family Medicine [facility] #2 [place] [address] Justen Gale MD #2 [facility] [address] [place] [address] documented as of this encounter Procedures Procedure Name Priority Date/Time Associated Diagnosis Comments URINALYSIS REFLEX IF INDICATED BY ABNORMAL RESULTS Routine 06/05/2020 4:45 PM FILLETER Frequency of micturition documented in this encounter Results * (ABNORMAL) URINALYSIS REFLEX IF INDICATED BY ABNORMAL RESULTS (06/05/2020 4:45 PM FILLETER) SPECIFIC GRAVITY 1.020 1.003 - 1.030 06/05/2020 5:19 PM FILLETER [facility] URINE PH 5.0 5.0 - 9.0 06/05/2020 5:19 PM FILLETER [facility] WBC ESTERASE Negative Negative 06/05/2020 5:19 PM FILLETER [facility] NITRITE Negative Negative 06/05/2020 5:19 PM FILLETER [facility] PROTEIN, RANDOM URINE Negative Negative 06/05/2020 5:19 PM FILLETER [facility] URINE GLUCOSE, QUAL Negative Negative 06/05/2020 5:19 PM FILLETER [facility] URINE KETONES Negative Negative 06/05/2020 5:19 PM FILLETER [facility] UROBILINOGEN Normal Normal mg/dL 06/05/2020 5:19 PM FILLETER [facility] URINE BILIRUBIN Negative Negative 5:19 PM FILLETER [facility] URINE BLOOD 25 /uL(A) Negative leandro/ul 06/05/2020 5:19 PM FILLETER [facility] URINALYSIS COLOR Yellow 06/05/19 5:19 PM FILLETER [facility] URINALYSIS CLARITY Clear 06/05/2020 5:19 PM FILLETER [facility] WBC (Urine) 0-5 Negative, 0-5 /hpf 06/05/2020 5:19 PM FILLETER [facility] URINE RBC'S 3-5(A) Negative, 0-2 /hpf 06/05/2020 5:19 PM FILLETER [facility] EPITHELIAL CELLS Small amount /lpf 2020 5:19 PM FILLETER [facility] BACTERIA, URINE Few(A) Negative /hpf 06/05/2020 5:19 PM FILLETER [facility] Urine URINE SPECIMEN / Unknown Non-Phlebotomy Collection / Unknown 06/05/2020 4:45 PM FILLETER 06/05/2020 5:00 PM FILLETER us Pili Elkins JAILOR, FINISHER SPECIAL STOCKS URINE ORDERABLES F inal Result [facility] #1 [place] [address] documented in this encounter Visit Diagnoses Diagnosis Frequency of micturition Urinary frequency documented in this encounter Additional Health Concerns Infection Onset Date Last Indicated Resolved Time COVID - 19 08/01/2024 08/01/2024 08/01/2024 3:20 PM CDT Respiratory Rule-Out 11/18/2024 11/18/2024 025 7:18 AM CDT Assessment Noted Time PHQ-9 Depression Total Score: 0 09/08/19 19 1:00 PM CDT documented as of this encounter Care Teams Cigar Head Puncher Relationship Specialty Start Date End Date Justen Gale MD #2 [facility] [address] [place] [address] PCP - General Family Medicine 10/17/17 David Roberts, JAILOR, FINISHER SPECIAL STOCKS #2 [place] [address] Nurse Practitioner Advanced Practice Nurse 01/31/22 Annel Rod MD #2 [facility] [address] [place] [address] Consulting Physician Endocrinology 07/01/22 documented as of this encounter
--- OUTSIDE RECORDS SUMMARY | 2025-02-03 15:51 | XMS_ITS | Encounter Summary ---
Author Organization [facility] Address [address] [place] [address] Phone Care Team Providers Care Operations Asst Name Role Phone Justen Gale MD Primary Care Provider [phone] David Roberts APRN, LIVESTOCK CARETAKER Unavailable [phone] Annel Rod MD Unavailable Reason for Visit * Reason Onset Date Comments Medication Refill 08/06/2020 Encounter Details Date Type Department Care Team (Late st Contact Info) Description 08/06/2020 Refill [facility] #2 [facility] [place] [place] [address] Justen Gale MD #[address] [address] Medication Refill Social History Tobacco Use Types [...] Outpatient Visits 2 weeks ago [facility] APN, LIVESTOCK CARETAKER 2 months ago Increased urinary [facility] Pili Mueller APN, LIVESTOCK CARETAKER 5 months ago Urinary frequency [facility] Pili Mueller APN, LIVESTOCK CARETAKER 8 months ago Type 2 diabetes mellitus with diabetic polyneuropathy, with long- term current use of insulin (HCC) [facility] Pili Mueller APN, LIVESTOCK CARETAKER 9 months ago Nausea [facility] Justen Urbano MD Upcoming Appointments Future Appointments In 6 days Pili Elkins APN, LIVESTOCK CARETAKER [facility] OIL CHANGER - Recent and Past Visits Recent Visits Date Type Provider Dept 07/20/20 Office Visit Pili Elkins APN, LIVESTOCK CARETAKER [facility] 06/05/20 Office Visit Pili Elkins APN, NETTA [facility] 02/17/20 Office Visit Pili Elkins APN, NETTA [facility] 12/03/19 Office Visit Pili Elkins APN, NETTA [facility] 11/05/19 Telemedicine Justen Gale MD [facility] 07/25/19 Telemedicine [facility] recent visits within past 460 days with a meds authorizing provider and meeting all other requirements Future Appointments Date Type Provider Dept 08/12/20 Appointment Pili Elkins APN, NETTA [facility] Showing future appointments within next 90 days [...] Contact Info) Description 03/19/2025 2:00 PM STRAPPER AND BUFFER Office Visit [facility] Group - Endocrinology - [place] #2 [place] [address] Annel Rod MD #[address] [address] 05/29/2025 1:30 PM STRAPPER AND BUFFER Office Visit [facility] - Family Medicine - [place] #2 [facility] [place] [address] Justen Gale MD #2 [facility] [address] [place] [address] documented as of this encounter Visit Diagnoses Not on filedocumented in this encounter Additional Health Concerns Infection Onset Date Last Indicated Resolved Time COVID - 19 08/01/2024 08/01/2024 08/01/2024 3:20 PM CDT Respiratory Rule-Out 11/18/2024 11/18/2024 025 7:18 AM CDT Assessment Noted Time PHQ-9 Depression Total Score: 0 07/21/19 21 3:00 PM CDT documented as of this encounter Care Teams Operations Asst Relationship Specialty Start Date End Date Justen Gale MD #[address] [address] PCP - General Family Medicine 10/17/17 David Roberts APRN, LIVESTOCK CARETAKER #2 [place] [address] Nurse Practitioner Advanced Practice Nurse 01/31/22 Annel Rod MD #[address] [address] Consulting Physician Endocrinology 07/01/22 documented as of this encounter
--- OUTSIDE RECORDS SUMMARY | 2025-02-03 15:51 | XMS_ITS | Encounter Summary ---
Author Organization [facility] Address [address] [place] [address] Phone Care Team Providers Care Jute Bag Cutting Machine Operator Name Role Phone Justen Gale MD Primary Care Provider [phone] David Roberts APRN, INVENTORY CONTROL MANAGER Unavailable [phone] Annel Rod MD Unavailable Reason for Visit * Reason Comments Medication Refill Encounter Details Date Type Department Care Team (Late st Contact Info) Description 02/17/2021 Refill [facility] #2 [place] [address] Justen Gale MD #[address] [address] Medication Refill Social History Tobacco Use Types [...] [facility] 06/05/20 Office Visit Pili Elkins APRN, INVENTORY CONTROL MANAGER [facility] Showing recent visits within past 365 days and meeting all other requirements Future Appointments Date Type Provider Dept 03/02/21 Appointment Vince Hermosillo MD [facility] Showing future appointments within next 90 days and meeting all other requirements documented in this encounter Plan of Treatment Upcoming Encounters Date Type Department Care Team (Late st Contact Info) Description 03/19/2025 2:00 PM MANAGER RESEARCH Office Visit [facility] - Endocrinology [facility] #2 [facility] [place] [address] Annel Rod MD #2 [facility] [address] [place] [address] 05/29/2025 1:30 PM MANAGER RESEARCH Office Visit [facility] Family Medicine [facility] #2 [place] [address] Justen Glae MD #2 [facility] [address] [place] [address] documented as of this encounter Visit Diagnoses Not on filedocumented in this encounter Additional Health Concerns Infection Onset Date Last Indicated Resolved Time COVID - 19 08/01/2024 08/01/2024 08/01/2024 3:20 PM CDT Respiratory Rule-Out 11/18/2024 11/18/2024 025 7:18 AM CDT Assessment Noted Time PHQ-9 Depression Total Score: 0 07/21/19 21 3:00 PM CDT documented as of this encounter Care Teams Jute Bag Cutting Machine Operator Relationship Specialty Start Date End Date Justen Gale MD #[address] [place] [address] PCP - General Family Medicine 10/17/17 David Roberts, EXERCISER HORSE, INVENTORY CONTROL MANAGER #2 [place] [address] Nurse Practitioner Advanced Practice Nurse 01/31/22 Annel Rod MD #[address] [address] Consulting Physician Endocrinology 07/01/22 documented as of this encounter
--- OUTSIDE RECORDS SUMMARY | 2025-02-03 15:51 | XMS_ITS | Encounter Summary ---
Author Organization [facility] Address [address] [place] [address] Care Team Providers Care Mat Weaver Name Role Phone Liu Jerez MD Unavailable Albert Corbin MD Unavailable [phone] Justen Gael MD Primary Care Provider Khris Arthur MD Unavailable [phone] Ko Melendez MD Unavailable John Paul Moyer MD Unavailable Annel Rod MD Unavailable Anali MARSHALL MD, Carlos M. Unavailable Encounter Details Date Type Department Care Team (Late st Contact Info) Description 12/17/2024 [facility] Subsequent Outreach [facility] [address] [place] [address] Madelyn Cruz, INDUSTRIAL WASTE INSPECTOR [address] [place] [address] Social History Tobacco Use Types Packs/Day [...] in a prison (including now)? No 05/24/2024 Social Connection and [...] living in a prison (including now)? No 12/03/2024 [facility] Utilities [...] on file Legal Sex Female 12:24 AM BELLHOP SERVICE CAPTAIN Gender Identity Not on file Sexual Orientation Not on file documented as of this encounter Plan of Treatment Not on file documented as of this encounter Visit Diagnoses Not on filedocumented in this encounter Care Teams Mat Weaver Relationship Specialty Start Date End Date Justen Gale MD 2 [facility] [address] [place] [address] PCP - General 10/09/17 Liu Jerez MD Consulting Physician Gastroenterology 07/28/17 [place] [address] [facility] [address] [place] [address] Consulting Physician Pulmonary Disease 08/03/17 Khris Arthur MD [address] [facility] [address] [place] [address] Medical Oncologist/Gis Analyst Medical Oncology 10/23/17 [place] [address] [address] [facility] [address] [place] [address] Surgeon Orthopedic Surgery 10/23/17 [place] [address] [address] Consulting Physician Pain Management 10/23/17 [place] [address] [address] [facility] [address] [place] [address] Referring Physician General Surgery 01/26/18 [place] [address] [address] [facility] [address] [place] [address] Consulting Physician Neurology 01/26/18 documented as of this encounter
--- OUTSIDE RECORDS SUMMARY | 2025-02-03 15:52 | XMS_ITS | Encounter Summary ---
Author Organization [facility] Address [address] [place] [address] Phone Care Team Providers Care Real Estate Transaction Manager Name Role Phone Justen Gale MD Primary Care Provider [phone] David Roberts APRN, HUMAN RESOURCES INTERN Unavailable [phone] Annel Rod MD Unavailable Reason for Visit * Reason Onset Date Comments Breathing Problem 08/07/2024 Muscle Pain 08/07/2024 Encounter Details Date Type Department Care Team (Late st Contact Info) Description 08/07/2024 Nurse Triage [facility] [address] [place] [address] Justen Gale MD #[address] [address] Breathing Problem; Muscle Pain Social History Tobacco [...] Total Score - Questions 1-9 0 07/23 [facility] - [...] She reports this was discussed with the restaurant front manager and provider was to be notified [...] (e.g., disoriented, slurred speech) Protocols used: Breathing [id number]-X-AF * Telephone Encounter - Neha Tomlinson - 08/07/2024 1:30 PM CDT Symptoms: Altered Mental Status, Body Aches, Breathing Trouble Outcome: Warm transfer to an emergent RN NOW! Reason: Trouble walking The caller accepted this outcome. documented in this encounter Plan of Treatment Upcoming Encounters Date Type Department Care Team (Late st Contact Info) Description 03/19/2025 2:00 PM INTELLECTUAL PROPERTY LEGAL ASSISTANT Office Visit [facility] - Endocrinology - [place] #2 [place] [address] Annel Rod MD #2 [facility] [address] [place] [address] 05/29/2025 1:30 PM INTELLECTUAL PROPERTY LEGAL ASSISTANT Office Visit [facility] - Family Medicine - [place] #2 [place] [address] Justen Gale MD #2 [facility] [address] [place] [address] documented as of this encounter Visit Diagnoses Not on filedocumented in this encounter Additional Health Concerns Infection Onset Date Last Indicated Resolved Time Respiratory Rule-Out 11/18/2024 11/18/2024 025 7:18 AM CDT Assessment Noted Time PHQ-9 Depression Total Score: 0 08/02/19 25 1:09 PM CDT documented as of this encounter Care Teams Real Estate Transaction Manager Relationship Specialty Start Date End Date Justen Gale MD #2 [facility] [address] [place] [address] PCP - General Family Medicine 10/17/17 David Roberts APRN, HUMAN RESOURCES INTERN #2 [place] [address] Nurse Practitioner Advanced Practice Nurse 01/31/22 Annel Rod MD #2 [facility] [address] [place] [address] Consulting Physician Endocrinology 07/01/22 documented as of this encounter
--- OUTSIDE RECORDS SUMMARY | 2025-02-03 15:52 | XMS_ITS | Encounter Summary ---
Author Organization [facility] Address [address] [place] [address] Phone Care Team Providers Care Balance Truer Name Role Phone Justen Gale MD Primary Care Provider [phone] David Roberts APRN, VE TEACHER Unavailable [phone] Annel Rod MD Unavailable Reason for Visit * Reason Onset Date Comments Advice Only 08/19/2024 Follow-up 08/19/2024 Encounter Details Date Type Department Care Team (Late st Contact Info) Description 08/19/2024 Telephone [facility] [place] [address] Justen Gale MD #[address] [address] Advice Only; Follow-up Social History Tobacco Use Types Packs/Day Years Used Date Smoking Tobacco: Never Smokeless Tobacco: Never Alcohol Use Standard Drinks/Week Comments No 0 (1 standard drink = 0.6 oz pur e alcohol) [facility] Utilities Answer Date Recorded [...] 0 07/23 [facility] - Occupational Stress Questionnaire Answer [...] visit * Telephone Encounter - Angelito Alegria, BRICK KILN BURNER, VE TEACHER - 08/19/2024 9:04 AM CDT Forwarding * Telephone Encounter - Isaura Weiss RN - 08/19/2024 8:37 AM CDT Situation: Strep throat follow up Background: Patient contacting PCP office. Patient was seen in ED on 08/09 and 08/12 in [place] (records in chart). Diagnosed with strep. Assessment: [...] CDT Symptom: Sore Throat Outcome: Transfer to license clerk queue Reason: Caller denied all higher acuity questions The caller accepted this outcome. Caller Denied: * Struggling for each breath (severe trouble breathing) * Can't swallow saliva (drooling) documented in this encounter Plan of Treatment Upcoming Encounters Date Type Department Care Team (Late st Contact Info) Description 03/19/2025 2:00 PM FENCE ERECTOR SUPERVISOR Office Visit [facility] - Endocrinology - [place] #2 [place] [address] Annel Rod MD #[address] [address] 05/29/2025 1:30 PM FENCE ERECTOR SUPERVISOR Office Visit [facility] - Family [facility] #[address] [place] [address] Justen Gale MD #2 [facility] [address] [place] [address] documented as of this encounter Visit Diagnoses Not on filedocumented in this encounter Additional Health Concerns Infection Onset Date Last Indicated Resolved Time Respiratory Rule-Out 11/18/2024 11/18/2024 025 7:18 AM CDT Assessment Noted Time PHQ-9 Depression Total Score: 0 08/02/19 25 1:09 PM CDT documented as of this encounter Care Teams Balance Truer Relationship Specialty Start Date End Date Justen Gale MD #[address] [address] PCP - General Family Medicine 10/17/17 David Roberts, BRICK KILN BURNER, VE TEACHER #2 [place] [address] Nurse Practitioner Advanced Practice Nurse 01/31/22 Annel Rod MD #[address] [address] Consulting Physician Endocrinology 07/01/22 documented as of this encounter
--- OUTSIDE RECORDS SUMMARY | 2025-02-03 15:52 | XMS_ITS | Encounter Summary ---
Author Organization [facility] Address [address] [place] [address] Phone Care Team Providers Care Doughnut Icer Name Role Phone Justen Gale MD Primary Care Provider David Roberts APRN, LOAN OFFICER Unavailable [phone] Annel Rod MD Unavailable Reason for Visit * Reason Comments Medication Refill Encounter Details Date Type Department Care Team (Late st Contact Info) Description 02/07/2020 Refill [facility] [address] [facility] [place] [address] Justen Gale MD #[address] [address] Medication Refill Social History Tobacco Use Types [...] st Contact Info) Description 03/19/2025 2:00 PM TAVERN KEEPER Office Visit [facility] Medical Group - Endocrinology - [place] #2 [facility] [place] [address] Annel Rod MD #2 [facility] [address] [place] [address] 05/29/2025 1:30 PM TAVERN KEEPER Office Visit [facility] Medical [facility] - Family Medicine - [place] #2 [place] [address] Justen Gale MD #2 [facility] [address] [place] [address] documented as of this encounter Visit Diagnoses Not on filedocumented in this encounter Additional Health Concerns Infection Onset Date Last Indicated Resolved Time COVID - 19 08/01/2024 08/01/2024 08/01/2024 3:20 PM CDT Respiratory Rule-Out 11/18/2024 11/18/2024 025 7:18 AM CDT Assessment Noted Time PHQ-9 Depression Total Score: 0 09/08/19 19 1:00 PM CDT documented as of this encounter Care Teams Doughnut Icer Relationship Specialty Start Date End Date Justen Gale MD #2 [facility] [address] [place] [address] PCP - General Family Medicine 10/17/17 David Roberts APRN, LOAN OFFICER #2 [place] [address] Nurse Practitioner Advanced Practice Nurse 01/31/22 Annel Rod MD #[address] [address] Consulting Physician Endocrinology 07/01/22 documented as of this encounter
--- OUTSIDE RECORDS SUMMARY | 2025-02-03 15:52 | XMS_ITS | Encounter Summary ---
Author Organization [facility] Address [address] [place] [address] Phone Care Team Providers Care Field Spec Name Role Phone Justen Gale MD Primary Care Provider [phone] David Roberts APRN, CLINICAL ACCOUNT SPECIALIST Unavailable [phone] Annel Rod MD Unavailable Reason for Visit * Reason Comments Medication Refill Encounter Details Date Type Department Care Team (Late st Contact Info) Description 02/07/2023 [facility]ill [facility] #2 [place] [phone] Catrina Qu[place] [address] [place] [address] Medication Refill Social History Tobacco Use Types [...] Dept 01/17/23 Office Visit Catrina Quiñonez MD [facility] [place] 09/16/22 Office Visit Pili Elkins APRN, NETTA [facility] 07/05/22 Office Visit Pili Elkins APRN, NETTA [facility] [place] 05/02/22 Office Visit Justen Gale MD [facility] 03/03/22 Office Visit Pili Elkins APRN, NETTA [facility] [place] Showing recent visits within past 365 days and meeting all other requirements Future Appointments No visits were found meeting these conditions. Showing future appointments within next 90 days and meeting all other requirements documented in this encounter Plan of Treatment Upcoming Encounters Date Type Department Care Team (Late st Contact Info) Description 03/19/2025 2:00 PM LINER CHECKER [facility] - Endocrinology - [place] #2 [facility] [place] [address] Annel Rod MD #[address] [address] 05/29/2025 1:30 PM LINER CHECKER Office Visit [facility] Family Medicine [facility] #2 [place] [address] Justen Gale MD #[address] [address] documented as of this encounter Visit Diagnoses Not on filedocumented in this encounter Additional Health Concerns Infection Onset Date Last Indicated Resolved Time COVID - 19 08/01/2024 08/01/2024 08/01/2024 3:20 PM CDT Respiratory Rule-Out 11/18/2024 11/18/2024 025 7:18 AM CDT Assessment Noted Time PHQ-9 Depression Total Score: 8 01/18/20 23 2:24 PM CDT documented as of this encounter Care Teams Field Spec Relationship Specialty Start Date End Date uJsten Gale MD #[address] [address] PCP - General Family Medicine 10/17/17 David Roberts APRN, CLINICAL ACCOUNT SPECIALIST #2 [place] [address] Nurse Practitioner Advanced Practice Nurse 01/31/22 Annel Rod MD #[address] [place] [address] Consulting Physician Endocrinology 07/01/22 documented as of this encounter
--- OUTSIDE RECORDS SUMMARY | 2025-02-03 15:52 | XMS_ITS | Encounter Summary ---
Author Organization [facility] Address [address] [place] [address] Phone Care Team Providers Care Academic Services Coordinator Name Role Phone Justen Gale MD Primary Care Provider [phone] David Roberts APRN, HOME SECURITY PROFESSIONAL Unavailable [phone] Annel Rod MD Unavailable Reason for Visit * Reason Onset Date Comments Sore Throat 09/02/2024 Encounter Details Date Type Department Care Team (Late st Contact Info) Description 09/02/2024 Nurse Triage [facility] Central Call Center [address] [place] [address] Justen Gale MD #[address] [address] Sore Throat Social History Tobacco Use Types Packs/Day Years Used Date Smoking Tobacco: Never Smokeless Tobacco: Never Alcohol Use Standard Drinks/Week Comments No 0 (1 standard drink = 0.6 oz pur e alcohol) [facility] Utilities Answer Date Recorded In [...] Total Score - Questions 1-9 0 07/23 [facility] Occupat ional Health - Occupational [...] Pharmacy, medications, and allergies reviewed. Discussed utilizing OpenWhere to: discuss if they would prefer a OpenWhere message or phone call response - See [...] Ulcers - Caller Reports Outcome: Transfer to shaper setter queue Reason: Caller denied all higher acuity questions The caller accepted this outcome. Caller Denied: * Struggling for each breath (severe trouble breathing) * Can't swallow saliva (drooling) documented in this encounter Plan of Treatment Upcoming Encounters Date Type Department Care Team (Late st Contact Info) Description 03/19/2025 2:00 PM MOLECULAR PATHOLOGIST Office Visit [facility] Endocrinology [facility] #[address] [place] [address] Annel Rod MD #[address] [address] 05/29/2025 1:30 PM MOLECULAR PATHOLOGIST [facility] #[address] [place] [address] Justen Gale MD #[address] [address] documented as of this encounter Visit Diagnoses Not on filedocumented in this encounter Additional Health Concerns Infection Onset Date Last Indicated Resolved Time Respiratory Rule-Out 11/18/2024 11/18/2024 025 7:18 AM CDT Assessment Noted Time PHQ-9 Depression Total Score: 0 08/02/19 25 1:09 PM CDT documented as of this encounter Care Teams Academic Services Coordinator Relationship Specialty Start Date End Date Justen Gale MD #[address] [address] PCP - General Family Medicine 10/17/17 David Roberts, VP DELIVERY, HOME SECURITY PROFESSIONAL #2 [place] [address] Nurse Practitioner Advanced Practice Nurse 01/31/22 Annel Rod MD #[address] [address] Consulting Physician Endocrinology 07/01/22 documented as of this encounter
--- OUTSIDE RECORDS SUMMARY | 2025-02-03 15:52 | XMS_ITS | Encounter Summary ---
Author Organization [facility] Address [address] [place] [address] Phone Care Team Providers Care Gas Pipe Layer Name Role Phone Liu Jerez MD Unavailable Albert Corbin MD Unavailable Justen Gale MD Primary Care Provider [phone] Khris Arthur MD Unavailable [phone] Ko Melendez MD Unavailable John Paul Moyer MD Unavailable Annel Rod MD Unavailable Anali MARSHALL MD, Carlos M. Unavailable [phone] Encounter Details Date Type Department Care Team [...] on file Legal Sex Female 12:24 AM FAST FOOD COOK Gender Identity Not on file Sexual [...] COVID: Recovered 02/10/2022 02/10/2022 06/10/2022 3:05 AM FAST FOOD COOK Exposure, COVID-19 Comment:Added automatically based on COVID19 lab answers indicating exposure risk 02/11/2022 02/11/2022 02/15/2022 9:06 AM C DT COVID: Suspected 05/14/2022 05/14/2022 05/14/2022 10:41 AM FAST FOOD COOK COVID: Suspected 06/07/2022 06/07/2022 06/07/2022 12:28 PM FAST FOOD COOK COVID: Suspected 06/21/2022 06/21/2022 06/21/2022 2:12 AM FAST FOOD COOK COVID: Suspected 10/05/2022 10/05/2022 10/05/2022 7:40 PM CDT COVID: Suspected 01/04/2024 01/04/2024 01/04/2024 10:30 PM CDT COVID: Suspected 02/14/2024 02/14/2024 02/15/2024 12:36 AM CDT COVID: Suspected 07/01/2024 07/01/2024 07/01/2024 2:53 PM CDT COVID: Suspected 07/01/2024 07/01/2024 07/02/2024 3:05 AM CDT COVID: Suspected 12/08/2024 12/08/2024 12/08/2024 1:50 AM CDT documented as of this encounter Care Teams Gas Pipe Layer Relationship Specialty Start Date End Date Justen Gale MD [address] [address] PCP - General 10/09/17 Liu Jerez MD Consulting Physician Gastroenterology 07/28/17 [place] [address] [facility] [address] [place] [address] Consulting Physician Pulmonary Disease 08/03/17 Khris Arthur MD [address] [facility] [address] [place] [address] Medical Oncologist/Cigarette Packer Medical Oncology 10/23/17 [place] [address] [facility] [address] [place] [address] Surgeon Orthopedic Surgery 10/23/17 [place] [address] [facility] [address] [place] [address] Consulting Physician Pain Management 10/23/17 [place] [address] [facility] [address] [place] [address] Referring Physician General Surgery 01/26/18 [place] [address] [facility] [address] [place] [address] Consulting Physician Neurology 01/26/18 documented as of this encounter
--- OUTSIDE RECORDS SUMMARY | 2025-02-03 15:52 | XMS_ITS | Encounter Summary ---
Author Organization [facility] Address [address] [place] [address] Phone Care Team Providers Care Channel Account Manager Name Role Phone Justen Gale MD Primary Care Provider [phone] David Roberts APRN, HONEY LIQUEFIER Unavailable [phone] Annel Rod MD Unavailable Reason for Visit * Reason Onset Date Comments Pain 09/23/2024 Encounter Details Date Type Department Care Team (Late st Contact Info) Description 09/23/2024 Telephone [facility] Call Center [address] [place] [address] Justen Gale MD #[address] [address] Pain Social History Tobacco Use Types Packs/Day Years Used Date Smoking Tobacco: Never Smokeless Tobacco: Never Alcohol Use Standard Drinks/Week Comments No 0 (1 standard drink = 0.6 oz pur e alcohol) [facility] Utilities Answer Date Recorded In the past 12 months has [employer] electric, gas, oil, or water company [...] do you attend chur or gnosticism services? More than 4 times per year [...] Score - Questions 1-9 0 07/23 [facility] of Occupat [...] - patient has RA Outcome: Transfer to research professor of biostatistics queue Reason: Caller denied all higher acuity questions The caller accepted this outcome. Caller Denied: * Chest pain * Headache * Eye pain * Abdominal pain * Genital pain documented in this encounter Plan of Treatment Upcoming Encounters Date Type Department Care Team (Late st Contact Info) Description 03/19/2025 2:00 PM TIRE RECAPPING MACHINE OPERATOR Office Visit [facility] Medical [facility] - Endocrinology - [place] #2 [place] [address] Annel Rod MD #2 [facility] [address] [place] [address] 05/29/2025 1:30 PM TIRE RECAPPING MACHINE OPERATOR Office Visit [facility] - Family Medicine - [place] #2 [place] [address] Justen Gale MD #2 [facility] [address] [place] [address] documented as of this encounter Visit Diagnoses Not on filedocumented in this encounter Additional Health Concerns Infection Onset Date Last Indicated Resolved Time Respiratory Rule-Out 11/18/2024 11/18/2024 025 7:18 AM CDT Assessment Noted Time PHQ-9 Depression Total Score: 0 08/02/19 25 1:09 PM CDT documented as of this encounter Care Teams Channel Account Manager Relationship Specialty Start Date End Date Justen Gale MD #2 [facility] [address] [place] [address] PCP - General Family Medicine 10/17/17 David Roberts APRN, NETTA #2 [place] [address] Nurse Practitioner Advanced Practice Nurse 01/31/22 Annel Rod MD #2 [facility] [address] [place] [address] Consulting Physician Endocrinology 07/01/22 documented as of this encounter
--- OUTSIDE RECORDS SUMMARY | 2025-02-03 15:52 | XMS_ITS | Encounter Summary ---
Author Organization [facility] Address [address] [place] [address] Phone Care Team Providers Care Final Block Press Operator Name Role Phone Justen Gale MD Primary Care Provider [phone] David Roberts APRN, AIRPLANE MECHANIC APPRENTICE Unavailable [phone] Annel Rod MD Unavailable Reason for Visit * Reason Comments Medication Refill Encounter Details Date Type Department Care Team (Late st Contact Info) Description 04/13/2023 Refill [facility] - End[facility]ology - [place] #2 [place] [address] Annel Rod MD #[address] [address] Medication Refill Social History [...] Jennifer Wang, RN - 04/14/2023 10:00 AM WORKCELL OPERATOR Requested Prescriptions Pending Prescriptions Disp Refills ??? Continuous Blood Gluc Sensor (FreeStyle Eileen 2 Sensor) Misc [Pharmacy Med Name: FREESTYLE EILEEN 2 SENSOR] 6 Each 1 Sig: APPLY 1 SENSOR AND WEAR FOR 14 DAYS TO CHECK BLOOD SUGAR Next appt: 05/30/2023 CELL OPERATOR documented in this encounter Plan of Treatment Upcoming Encounters Date Type Department Care Team (Late st Contact Info) Description 03/19/2025 2:00 PM WORKCELL OPERATOR Office Visit [facility] Medical Group - Endocrinology - [place] #2 [place] [address] Annel Rod MD #2 [facility] [address] [place] [address] 05/29/2025 1:30 PM WORKCELL OPERATOR Office Visit [facility] - Family Medicine [facility] #2 [place] [address] Justen Gale MD #2 [facility] [address] [place] [address] documented as of this encounter Visit Diagnoses Not on filedocumented in this encounter Additional Health Concerns Infection Onset Date Last Indicated Resolved Time COVID - 19 08/01/2024 08/01/2024 08/01/2024 3:20 PM CDT Respiratory Rule-Out 11/18/2024 11/18/2024 025 7:18 AM CDT Assessment Noted Time PHQ-9 Depression Total Score: 8 01/18/20 23 2:24 PM CDT documented as of this encounter Care Teams Final Block Press Operator Relationship Specialty Start Date End Date Justen Gale MD #2 [facility] [address] [place] [address] PCP - General Family Medicine 10/17/17 David Roberts, DISTRICT FIRE MANAGEMENT OFFICER, AIRPLANE MECHANIC APPRENTICE #2 [place] [address] Nurse Practitioner Advanced Practice Nurse 01/31/22 Annel Rod MD #2 [facility] [address] [place] [address] Consulting Physician Endocrinology 07/01/22 documented as of this encounter
--- OUTSIDE RECORDS SUMMARY | 2025-02-03 15:52 | XMS_ITS | Encounter Summary ---
Author Organization [facility] Address [address] [place] [address] Phone Care Team Providers Care Bessemer Converter Blower Name Role Phone Justen Gale MD Primary Care Provider [phone] David Roberts APRN, ELECTRONIC PREPRESS SYSTEM OPERATOR Unavailable [phone] Annel Rod MD Unavailable Reason for Visit * Reason Onset Date Comments Advice Only 11/21/2023 Encounter Details Date Type Department Care Team (Late st Contact Info) Description 11/21/2023 Telephone [facility] Call Center [address] [place] [address] Justen Gale MD #[address] [address] Advice Only Social History Tobacco Use Types [...] 11/21/2023 3:17 PM CDT RFC: Alejandra from [facility] is calling to state that patient is listed as being a diabteic but is not on a statin. Please call Alejandra (relationship to patient n/a) back regarding above referenced patient. Patient's Provider is Justen Gale MD . documented in this encounter Plan of Treatment Upcoming Encounters Date Type Department Care Team (Late st Contact Info) Description 03/19/2025 2:00 PM FLIGHT STEWARD Office Visit [facility] Medical Group - Endocrinology - [place] #2 [place] [address] Annel Rod MD #[address] [address] 05/29/2025 1:30 PM FLIGHT STEWARD Office Visit [facility] Medical Group - Family Medicine - [place] #2 [place] [address] Justen Gale MD #2 [facility] [address] [place] [address] documented as of this encounter Visit Diagnoses Not on filedocumented in this encounter Additional Health Concerns Infection Onset Date Last Indicated Resolved Time COVID - 19 08/01/2024 08/01/2024 08/01/2024 3:20 PM CDT Respiratory Rule-Out 11/18/2024 11/18/2024 025 7:18 AM CDT Assessment Noted Time PHQ-9 Depression Total Score: 8 01/18/20 23 2:24 PM CDT documented as of this encounter Care Teams Bessemer Converter Blower Relationship Specialty Start Date End Date Justen Gale MD #[address] [address] PCP - General Family Medicine 10/17/17 David Roberts APRN, ELECTRONIC PREPRESS SYSTEM OPERATOR #2 [place] [address] Nurse Practitioner Advanced Practice Nurse 01/31/22 Annel Rod MD #[address] [address] Consulting Physician Endocrinology 07/01/22 documented as of this encounter
--- OUTSIDE RECORDS SUMMARY | 2025-02-03 15:52 | XMS_ITS | Clinical Summary ---
Author Organization [facility] Address [address] [place] [address] Phone Care Team Providers Care Test Evaluator Name Role Phone Justen Gale MD Primary Care Provider [phone] Allergies Active Allergy Reactions Criticality Noted Date [...] - 6.0 % 09/29/2017 10:[address] [facility] EST. AVG GLUCOSE, A1C 186 mg/dL 09/29/2017 10:[address] [facility] Blood Venipuncture / Unknown 09/28/2017 8:41 PM CDT 09/28/2017 8:[address] [facility] - 09/29/2017 10:28 AM CDT HGB A1C INTERPRETATION NORMAL: <5.7% PRE-DIABETES: 5.7 - 6.4% DIABETES: 6.5% OR GREATER us Francisco Castaneda MD CHEMISTRY ORDERABLES Final Resul t [facility]# [id number] [address] [place] [address] * (ABNORMAL) LIPID PANEL (09/28/2017 8:41 PM CDT) CHOLESTEROL 174 <200 mg/dL 09/30/2017 2:[address] [facility] TRIGLYCERIDE 109 <150 mg/dL 09/30/2017 2:[address] [facility] HDL 45 40 - 59 mg/dL 09/30/2017 2:[address] [facility] LDL CALCULATED 107(H) <100 mg/dL 09/30/2017 2:[address] [facility] NON-HDL CHOLESTEROL 129 <130 mg/dL 09/30/2017 2:[address] [facility] Blood Venipuncture / Unknown 09/28/2017 [...] Resul t [facility] CLIA# [id number] [address] [place] [address] from Last 3 Months or Most Recently Relevant [place] [address] Advance Directives For more information, please contact: [phone] * Full Code (Latest Code Status on File) Date Activated Date Inactivated Comments 09/29/2017 7:45 AM 09/30/2017 9:14 PM * Full Code Date Activated Date Inactivated Comments 09/29/2017 1:25 AM 09/29/2017 7:45 AM Care Teams Test Evaluator Relationship Specialty Start Date End Date Justen Gale MD [address] [facility] [address] [place] [id number] PCP - General Cardiovascular Disease 09/14/17
--- OUTSIDE RECORDS SUMMARY | 2025-02-03 15:52 | XMS_ITS | Encounter Summary ---
Author Organization [facility] Address [address] [place] [address] Phone Care Team Providers Care Scoop Driver Name Role Phone Justen Gale MD Primary Care Provider [phone] David Roberts APRN, WEB SITE MANAGER Unavailable [phone] Annel Rod MD Unavailable Reason for Visit * Reason Comments Medication Refill Encounter Details Date Type Department Care Team (Late st Contact Info) Description 03/05/2023 Refill [facility] - Family Medicine [facility] [address] [place] [address] Pili Elkins, ZAMZAM, WEB SITE MANAGER [address] [address] Medication Refill Social History [...] discontinued on 10/19/2022 by Justen Gale MD IRON DRAIN PIPE LAYER documented in this encounter Plan of Treatment Upcoming Encounters Date Type Department Care Team (Late st Contact Info) Description 03/19/2025 2:00 PM CAST IRON DRAIN PIPE LAYER Office Visit [facility] Medical [facility] - Endocrinology [facility] [address] [place] [address] Annel Rod MD #2 [facility] [address] [place] [address] 05/29/2025 1:30 PM CAST IRON DRAIN PIPE LAYER Office Visit [facility] - Family Medicine [facility] [address] [place] [address] Justen Gale MD #2 [facility] [address] [place] [address] documented as of this encounter Visit Diagnoses [...] documented as of this encounter Care Teams Scoop Driver Relationship Specialty Start Date End Date Justen Gale MD #2 [facility] [address] [place] [address] PCP - General Family Medicine 10/17/17 David Roberts APRN, WEB SITE MANAGER [address] [place] [address] Nurse Practitioner Advanced Practice Nurse 01/31/22 Annel Rod MD #[address] [address] Consulting Physician Endocrinology 07/01/22 documented as of this encounter
--- OUTSIDE RECORDS SUMMARY | 2025-02-03 15:52 | XMS_ITS | Encounter Summary ---
Author Organization [facility] Address [address] [place] [address] Phone Care Team Providers Care Pesticide Control Inspector Name Role Phone Lavonne Hathaway MD Primary Care Provider + [phone] Liu Jerez MD Unavailable [phone] Albert Corbin MD Unavailable [phone] Justen Gale MD Primary Care Provider [phone] Lavonne Hathaway MD Primary Care Provider + [phone] Justen Gale MD Primary Care Provider [phone] Khris Arthur MD Unavailable + [phone] Ko Melendez MD Unavailable [phone] John Paul Moyer MD Unavailable [phone] Annel Rod MD Unavailable Anali MARSHALL MD, Carlos M. Unavailable [phone] Encounter Details Date Type Department Care Team ([facility] Contact Info) Description 05/15/2017 Orders Only [facility] Scanning, Provider Social History Tobacco Use Types Packs/Day Years Used Date Smoking Tobacco: Former Alcohol Use Standard Drinks/Week Comments No 0 (1 standard drink = 0.6 oz pur e alcohol) Comments Unknown Sex and Gender Information Value Date Recorded Sex Assigned at Not on file Legal Sex Female 12:24 AM LABORER SALVAGE Gender Identity Not on file Sexual Orientation [...] COVID: Recovered 02/10/2022 02/10/2022 06/10/2022 3:05 AM LABORER SALVAGE Exposure, COVID-19 Comment:Added automatically based on COVID19 lab answers indicating exposure risk 02/11/2022 02/11/2022 02/15/2022 9:06 AM C DT COVID: Suspected 05/14/2022 05/14/2022 05/14/2022 10:41 AM LABORER SALVAGE COVID: Suspected 06/07/2022 06/07/2022 06/07/2022 12:28 PM LABORER SALVAGE COVID: Suspected 06/21/2022 06/21/2022 06/21/2022 2:12 AM LABORER SALVAGE COVID: Suspected 10/05/2022 10/05/2022 10/05/2022 7:40 PM CDT COVID: Suspected 01/04/2024 01/04/2024 01/04/2024 10:30 PM CDT COVID: Suspected 02/14/2024 02/14/2024 02/15/2024 12:36 AM CDT COVID: Suspected 07/01/2024 07/01/2024 07/01/2024 2:53 PM CDT COVID: Suspected 07/01/2024 07/01/2024 07/02/2024 3:05 AM CDT COVID: Suspected 12/08/2024 12/08/2024 12/08/2024 1:50 AM CDT documented as of this encounter Care Teams Pesticide Control Inspector Relationship Specialty Start Date End Date Lavonne Hathaway MD [address] [place] [address] [place] [address] PCP - General 08/16/16 08/17/17 Justen Gale MD [address] [facility] [address] [place] [address] PCP - General 08/18/17 08/22/17 Lavonne Hathaway MD [address] [place] [address] [place] [address] PCP - General Family Medicine 08/23/17 10/08/17 Justen Gale MD [address] [facility] [address] [place] [address] PCP - General 10/09/17 Liu Jerez MD [address] [place] [address] [place] [address] Consulting Physician Gastroenterology 07/28/17 [place] [address] [address] [facility] [address] [place] [address] Consulting Physician Pulmonary Disease 08/03/17 Khris Arthur MD [address] [facility] [address] [place] [address] Medical Oncologist/Rework Operator Medical Oncology 10/23/17 [place] [address] [facility] [facility] [address] [place] [address] Surgeon Orthopedic Surgery 10/23/17 [place] [address] [facility] [facility] [address] [place] [address] Consulting Physician Pain Management 10/23/17 [place] [address] [facility] [address] [place] [address] Referring Physician General Surgery 01/26/18 [place] [address] [facility] [address] [place] [address] Consulting Physician Neurology 01/26/18 documented as of this encounter
--- OUTSIDE RECORDS SUMMARY | 2025-02-03 15:52 | XMS_ITS | Encounter Summary ---
Author Organization [facility] Address [address] [place] [address] Phone Care Team Providers Care Command And Control Officer Name Role Phone Justen Gale MD Primary Care Provider [phone] David Roberts APRN, ELECTRONIC IMAGER Unavailable [phone] Annel Rod MD Unavailable Reason for Visit * Reason Comments Medication Refill Encounter Details Date Type Department Care Team (Late st Contact Info) Description 02/07/2023 Refill [facility] - Family Medicine [facility] #2 [place] [address] Pili Elkins, ZAMZAM, ELECTRONIC IMAGER #[address] [address] Medication Refill Social History Tobacco [...] st Contact Info) Description 03/19/2025 2:00 PM DIRECTOR GLOBAL INTELLIGENCE Office Visit [facility] Medical Group - Endocrinology - [place] [address] [place] [address] Annel Rod MD #[address] [address] 05/29/2025 1:30 PM DIRECTOR GLOBAL INTELLIGENCE Office Visit [facility] Medical Group - Family Medicine [facility] [address] [place] [address] Justen Gale MD #2 [facility] [address] [place] [address] documented as of this encounter Visit Diagnoses [...] documented as of this encounter Care Teams Command And Control Officer Relationship Specialty Start Date End Date Justen Gale MD #2 [facility] [address] [place] [address] PCP - General Family Medicine 10/17/17 David Roberts APRN, ELECTRONIC IMAGER [address]2 [place] [address] Nurse Practitioner Advanced Practice Nurse 01/31/22 Annel Rod MD #2 [facility] [address] [place] [address] Consulting Physician Endocrinology 07/01/22 documented as of this encounter
--- OUTSIDE RECORDS SUMMARY | 2025-02-03 15:52 | XMS_ITS | Encounter Summary ---
Author Organization [facility] Address [address] [place] [address] Phone Care Team Providers Care Print Manager Name Role Phone Justen Gale MD Primary Care Provider [phone] David Roberts APRN, TRAY LINE WORKER Unavailable [phone] Annel Rod MD Unavailable Reason for Visit * Reason Comments Medication Refill Encounter Details Date Type Department Care Team (Late st Contact Info) Description 03/02/2023 Refill [facility] - Family [facility] #2 [place] [id number] Justen Gale MD #[address] [address] Medication Refill Social History Tobacco Use Types [...] Tamika Villarreal RN - 03/02/2023 8:51 AM SEASONAL RETAIL MERCHANDISER Medication failed the protocol, provider to review [...] Dept 01/17/23 Office Visit Catrina Quiñonez MD [facility] 09/16/22 Office Visit Pili Elkins APRN, CNP [facility] 07/05/22 Office Visit Pili Elkins APRN, NETTA [facility] 05/02/22 Office Visit Justen Gale MD [facility] 03/03/22 Office Visit Pili Elkins APRN, NETTA [facility] Showing recent visits within past 365 days and meeting all other requirements Future Appointments No visits were found meeting these conditions. Showing future appointments within next 90 days and meeting all other requirements ONAL RETAIL MERCHANDISER documented in this encounter Plan of Treatment Upcoming Encounters Date Type Department Care Team (Late st Contact Info) Description 03/19/2025 2:00 PM SEASONAL RETAIL MERCHANDISER Office Visit [facility] - Endocrinology - [place] [address] [place] [address] Annel Rod MD #[address] [phone] 05/29/2025 1:30 PM SEASONAL RETAIL MERCHANDISER Office Visit [facility] - Family [facility] #2 [place] [address] Justen Gale MD #2 [facility] [address] [place] [address] documented as of this encounter Visit Diagnoses Not on filedocumented in this encounter Additional Health Concerns Infection Onset Date Last Indicated Resolved Time COVID - 19 08/01/2024 08/01/2024 08/01/2024 3:20 PM CDT Respiratory Rule-Out 11/18/2024 11/18/2024 025 7:18 AM CDT Assessment Noted Time PHQ-9 Depression Total Score: 8 01/18/20 23 2:24 PM CDT documented as of this encounter Care Teams Print Manager Relationship Specialty Start Date End Date Justen Gale MD #[address] [address] PCP - General Family Medicine 10/17/17 David Roberts APRN, TRAY LINE WORKER #2 [place] [address] Nurse Practitioner Advanced Practice Nurse 01/31/22 Annel Rod MD #[address] [address] Consulting Physician Endocrinology 07/01/22 documented as of this encounter
--- OUTSIDE RECORDS SUMMARY | 2025-02-03 15:52 | XMS_ITS | Encounter Summary ---
Author Organization [facility] Address [address] [place] [address] Phone Care Team Providers Care Restaurant Host/Hostess Name Role Phone Justen Gale MD Primary Care Provider [phone] David Roberts APRN, ASSISTANT PROFESSOR OF BUSINESS Unavailable [phone] Annel Rod MD Unavailable Reason for Visit * Reason Comments Medication Refill Encounter Details Date Type Department Care Team (Late st Contact Info) Description 10/24/2022 Refill [facility] - Family Medicine [facility] #2 [place] [address] Pili Elkins, ZAMZAM, ASSISTANT PROFESSOR OF BUSINESS #[address] [address] Medication Refill Social History Tobacco [...] st Contact Info) Description 03/19/2025 2:00 PM ASSISTANT PROFESSOR OF CRIMINAL JUSTICE Office Visit [facility] Endocrinology [facility] #2 [place] [address] Annel Rod MD #[address] [address] 05/29/2025 1:30 PM ASSISTANT PROFESSOR OF CRIMINAL JUSTICE Office Visit [facility] Family Medicine [facility] #2 [place] [address] Justen Gale MD #2 [facility] [address] [place] [address] documented as of this encounter Visit Diagnoses [...] as of this encounter Care Teams Restaurant Host/Hostess Relationship Specialty Start Date End Date Justen Gale MD #[address] [address] PCP - General Family Medicine 10/17/17 David Roberts, TERRAZZO ROLLER, ASSISTANT PROFESSOR OF BUSINESS [address] [place] [address] Nurse Practitioner Advanced Practice Nurse 01/31/22 Annel Rod MD [address] [address] Consulting Physician Endocrinology 07/01/22 documented as of this encounter
--- OUTSIDE RECORDS SUMMARY | 2025-02-03 15:52 | XMS_ITS ---
Author Organization [facility] Address [address] [place] [address] Care Team Providers Care Stacker Tender Name Role Phone Justen Gale MD Primary Care Provider [phone] Active Problems Problem Noted Date Diagnosed Date [...]
== END 2025-02-03 16:25 | disposition left against medical advice (07) ==
LOC: ANHED 14:56
PROVIDERS: Emergency Medicine; Emergency Provider Physician Assistant; PCP Internal Medicine
DX: R07.9 Chest pain, unspecified (principal); M54.9 Dorsalgia, unspecified; I50.9 Heart failure, unspecified; M33.20 Polymyositis, organ involvement unspecified; Z86.711 Personal history of pulmonary embolism; Z79.01 Long term (current) use of anticoagulants
CPT/HCPCS: 36415; 71046; 80053; 83690; 83880; 84484; 85025; 85610; 85730; 93005; 99284

== ENCOUNTER 2025-02-15 14:38 | Emergency (ER) | payer MEDICARE, MEDICAID, SELFPAY ==
--- NOTE | ~2025-02-15 | XR_ITS ---
EXAMINATION: XR shoulder RT min 2V, 02/15/2025 14:55 CDT HISTORY: fall COMPARISON: No comparisons available. Findings: No acute fracture or malalignment. Moderate degenerative changes Soft tissues unremarkable. Impression: No acute fracture or malalignment. Reviewed, dictated and finalized at location P. Impression: No acute fracture or malalignment.
[2025-02-15 14:49] VITALS: BP 108/58; PULSE 94; RESP 18; TEMP 36.2; O2SAT 98
--- NOTE | 2025-02-15 15:00 | ED.GENADULT ---
HPI - General Adult General Chief complaint: Extremity Injury, Upper Stated complaint: fall, rt shoulder Time Seen by Provider: 02/15/25 15:00 Source: patient Mode of arrival: ambulatory Limitations: no limitations History of Present Illness HPI narrative: 69-year-old female patient presents to the [facility] with complaints of right shoulder pain. Patient states [facility] for a CHF exacerbation. Patient states that when she was coming home yesterday in going through her front door with her hands full of all of her things she tripped and her right shoulder hit her front door and she fell. Patient states that her whole right side also landed on some concrete steps. Patient states she did take some prescribed [place] and muscle relaxants last night for the pain. Patient states that today she is sore all over but is significantly to the right shoulder which she states she is having trouble moving. Patient denies hitting her head or loss of consciousness. Related Data Home Medications ?Medication ?Instructions ?Recorded ?Confirmed ?Last Taken ?Type exemestane 25 mg tablet 25 mg PO HS 01/06/20 11/16/24 11/15/24 History insulin glargine 100 unit/mL (3 50 unit subcut QAM 01/06/20 11/16/24 11/15/24 History mL) subcutaneous pen (Lantus Solostar U-100 Insulin) ropinirole 5 mg tablet 5 mg PO HS 01/06/20 11/16/24 11/15/24 History insulin lispro 100 unit/mL 32 unit subcut TID 03/19/22 11/16/24 11/15/24 History subcutaneous pen (Humalog KwikPen (U-100) Insulin) oxybutynin chloride 15 mg 15 mg PO DAILY 11/06/22 11/16/24 11/15/24 History tablet,extended release 24 hr gabapentin 300 mg capsule 300 mg PO TID 06/25/23 11/16/24 11/15/24 History prednisone 10 mg tablet 10 mg PO DAILY 10/08/24 11/16/24 11/15/24 History rivaroxaban 20 mg tablet (Xarelto) 20 mg PO 0900 10/08/24 11/16/24 11/15/24 History oxybutynin chloride 10 mg mg PO 02/15/25 Unknown History tablet,extended release 24 hr sulfamethoxazole 800 tablet 02/15/25 Unknown History mg-trimethoprim 160 mg tablet tamsulosin 0.4 mg capsule mg PO 02/15/25 Unknown History Allergies Allergy/AdvReac Type Severity Reaction Status Date / Time ceftriaxone Allergy Severe SOB Verified 12/29/24 02:00 cephalexin Allergy Severe Difficulty Verified 12/29/24 02:00 Breathing Cephalosporins Allergy Severe Difficulty Verified 12/29/24 02:00 Breathing lorazepam Allergy Severe Swelling Verified 12/29/24 02:00 trazodone Allergy Severe Swelling Verified 12/29/24 02:00 of Lip/Tongue/Throat metoclopramide Allergy Intermediate Other Verified 12/29/24 02:00 azithromycin Allergy Mild Itching Verified 12/29/24 02:00 chlorhexidine Allergy Mild BLISTERING Verified 12/29/24 02:00 levofloxacin Allergy Mild Hives / Verified 12/29/24 02:00 Red Face ketorolac Allergy Itching Verified 12/29/24 02:00 latex Allergy Rash Verified 12/29/24 02:00 meropenem Allergy Rash Verified 12/29/24 02:00 nitrofurantoin Allergy Itching Verified 12/29/24 02:00 piperacillin Allergy Rash Verified 12/29/24 02:00 reslizumab Allergy Hives Verified 12/29/24 02:00 trimethoprim (From Allergy Itching Verified 12/29/24 02:00 Sulfamethoxazole-Trimethoprim) sulfamethoxazole (From AdvReac Severe Anaphylaxis Verified 12/29/24 02:00 Sulfamethoxazole-Trimethoprim) clindamycin AdvReac Intermediate Nausea and Verified 12/29/24 02:00 Vomiting doxycycline AdvReac Mild Itching Verified 12/29/24 02:00 oxycodone AdvReac Mild Vomiting Verified 12/29/24 02:00 amlodipine AdvReac Swelling Verified 12/29/24 02:00 lisinopril AdvReac Swelling Verified 12/29/24 02:00 pregabalin AdvReac Swelling Verified 12/29/24 02:00 Review of Systems Review of Systems: CONSTITUTIONAL: Denies fever, chills, or sweats. EYES: Denies visual changes, redness, or discharge. ENT: Denies rhinorrhea, congestion, sore throat, or otalgia. CARDIOVASCULAR: Denies chest pain, palpitations, or edema. RESPIRATORY: Denies cough or dyspnea. GASTROINTESTINAL: Denies abdominal pain, nausea, vomiting, or diarrhea. GENITOURINARY: Denies dysuria or hematuria. SKIN: Denies rash or itching. MUSCULOSKELETAL: Denies back pain, joint pain, or myalgia. Positive right shoulder pain NEUROLOGIC: Denies headache, numbness, or weakness. PSYCHIATRIC: Denies anxiety or depression. [facility] Past Medical History Medical History Polymyositis with myopathy Gastroparesis Obstructive sleep apnea on CPAP Restless leg syndrome Pulmonary embolism positive for coagulation workup Deep venous thrombosis Type 2 diabetes mellitus Throat pain in adult Oral ulcer Chronic anticoagulation Overactive bladder Irritable bowel syndrome Congestive heart failure Chronic back pain Collagenous colitis Morbid obesity Breast cancer Depression Anxiety Peripheral neuropathy Kidney stone Multiple thyroid nodules Surgical History Surgical History History of umbilical hernia repair History of colonoscopy Status post insertion of spinal cord stimulator History of cystoscopy History of ureter stent History of cholecystectomy History of bilateral mastectomy History of esophagogastroduodenoscopy (EGD) History of right oophorectomy History of total right knee replacement History of cardiac catheterization Reportedly negative for coronary artery disease. Family History Family History Mother Diabetes mellitus Acute myocardial infarction Congestive heart failure Hypertension Cerebrovascular accident Coronary artery disease Father Prostate carcinoma Sibling Acute myocardial infarction Breast cancer Chronic obstructive pulmonary disease Social History Social History Social History: Surrogate medical decision maker: Jimmie Onelrangel, spouse. (Previously listed though she reports being now) Code status: Full code. Smoking packs per day: 0 Smoking cigarettes per day: 0.0 Years smoked: 2 Smoking pack-years: 0.00 Smoking status: Never smoker Second hand tobacco smoke exposure: Yes Alcohol intake: never Substance use: never Substance use type: does not use Do You Feel Safe in your Home?: Yes Lack of Transportation: YES Lack of Food: Never True Current Housing: I Have Housing Concerned About Future Housing: No Difficulty Paying Gas/Electric Bills: No Difficulty Paying for Meds: No Currently Unemployed: No Education: Associate Degree Difficulty w/ Childcare or Family Care: No Living arrangements: with family Additional living arrangements comments: daughter Additional occupation/education comments: Disabled. Spiritual care concerns: No Comments at the time of my signature I agree with nursing past medical history, surgical, social, and family history. There is no relevant family history pertinent to the presenting complaint. Exam Narrative: GENERAL: Well-appearing, well-nourished, and in no acute distress. HEAD: Normocephalic, atraumatic. EYES: PERRLA and EOMI. ENT: Nares clear, no rhinorrhea or epistaxis. Mucous membranes moist. NECK: Supple. No lymphadenopathy CHEST: Clear to auscultation. No respiratory distress. HEART: Regular rate and rhythm. No murmur heard. Normal peripheral pulses. ABDOMEN: Soft, nontender, nondistended, normal active bowel sounds. EXTREMITIES: The R shoulder is without obvious asymmetry or deformity when compared to the L shoulder. No surface trauma, ecchymosis noticed in various areas along the right arm but this could be due to her recent hospitalization, no crepitus. No bony deformity or prominence of the humeral head No erythema, warmth, swelling. no tenderness to palpation to clavicle, A to C joint, acromion, scapula or humeral head. tenderness to palpation of the bicipital groove or soft tissues. tenderness to palpation of the muscles of the, biceps/triceps, deltoid, trapezius, rhomboid, latissimus dorsi, rotator cuff. pain and limitation with active or passive abduction/adduction, internal/external rotation, flexion/extension. unable to assess empty can or drop arm test (rotator cuff) due to patient not a be able to lift her right arm past the elbow level. Pain with rotation of the right wrist that she feels into the anterior shoulder.. No axillary tenderness or lymphadenopathy. Normal sensation over the deltoid and ability to flex arm at elbow indicates intact axillary nerve function. Distal motor and neurovascular status is intact. SKIN: Warm, dry, no rash. NEURO: No focal deficits. Alert and oriented x3. Course Course Level of Care: Express Care Visit Reevaluation(s) Reevaluation #1: re-evaluated patient notified her that her x-ray is negative for any acute fractures however I do believe that she most likely will need additional follow-up. Discussed with patient to follow-up with her primary doctor as needed for any further assessment for possible MRI or CT or physical therapy. Discussed with patient she can continue taking her home medications for pain and would continue and we will provide her a sling today to help decrease stress on the shoulder from the arm hanging down. Also recommend icing the shoulder pretty often for the next couple of days. Date: 02/15/25 Time: 15:43 Vital Signs Vital signs: Vital Signs Temperature 36.2 C L 02/15/25 14:49 Pulse Rate 94 02/15/25 14:49 Respiratory Rate 18 02/15/25 14:49 Blood Pressure 108/58 L 02/15/25 14:49 Pulse Oximetry 98 02/15/25 14:49 Oxygen Delivery Room Air 02/15/25 14:49 Temperature 36.2 C L 02/15/25 14:49 Pulse Rate 94 02/15/25 14:49 Respiratory Rate 18 02/15/25 14:49 Blood Pressure 108/58 L 02/15/25 14:49 Pulse Oximetry 98 02/15/25 14:49 Oxygen Delivery Room Air 02/15/25 14:49 Vital signs reviewed. Medical Decision Making MDM Narrative Medical decision making narrative: Plan of care patient is to obtain x-ray to assess any acute fracture due to the fall. I will reassess once this has resulted. Differential Diagnosis Differential Diagnosis: Differential diagnosis: Neurovascular compromise, anterior shoulder dislocation, posterior dislocation, facture, AC separation, shoulder cuff tear, bursitis, tendinitis Vital Signs Vital Signs: Vital Signs Temperature 36.2 C L 02/15/25 14:49 Pulse Rate 94 02/15/25 14:49 Respiratory Rate 18 02/15/25 14:49 Blood Pressure 108/58 L 02/15/25 14:49 Pulse Oximetry 98 02/15/25 14:49 Oxygen Delivery Room Air 02/15/25 14:49 Temperature 36.2 C L 02/15/25 14:49 Pulse Rate 94 02/15/25 14:49 Respiratory Rate 18 02/15/25 14:49 Blood Pressure 108/58 L 02/15/25 14:49 Pulse Oximetry 98 02/15/25 14:49 Oxygen Delivery Room Air 02/15/25 14:49 Imaging Data Radiologist's impression: [facility] [place], [place] [id number] XRay Report Signed Patient: Karly Marques : 1955 MR#: [id number] Age: 69 Acct:[id number] Loc: [facility] ADM Date: 02/15/[address]: Ordering Physician: Joy Awad APRN Date of Service: 02/15/25 Procedure(s): XR shoulder RT min 2V Accession Number(s): [id number] cc: Shahla, Justen Spicer MD; Joy Awad APRN~ EXAMINATION: XR shoulder RT min 2V, 02/15/2025 14:55 CDT HISTORY: fall COMPARISON: No comparisons available. Findings: No acute fracture or malalignment. Moderate degenerative changes Soft tissues unremarkable. Impression: No acute fracture or malalignment. Reviewed, dictated and finalized at location P. Critical Care Time Critical Care Time Critical Care Time: No Discharge Plan Discharge Clinical Impression: Internal derangement of right shoulder, Fall Patient Disposition: Home Condition: Stable Instructions: Antibiotic Form, Shoulder Pain (ED) Additional Instructions: Ice to the area 20-30 minutes 4-6 times a day Elevate above heart arm sling as directed for comfort for the next 5-7 days Tylenol for lesser pain Ibuprofen regularly for the next 2-3 days for the inflammation Follow up with your primary care provider if the condition is not improving within 1 week or sooner if the Condition worsens with numbness, tingling, decrease sensation with weakness to seek ER. Patient Language: Tunisian Prescriptions: No Action gabapentin 300 mg capsule 300 mg PO TID oxybutynin chloride 10 mg tablet extended release 24hr PO sulfamethoxazole-trimethoprim 800-160 mg tablet tamsulosin 0.4 mg capsule PO exemestane 25 mg tablet 25 mg PO HS ropinirole 5 mg tablet 5 mg PO HS insulin glargine [Lantus Solostar U-100 Insulin] 100 unit/mL (3 mL) insulin pen 50 unit SUBCUT QAM insulin lispro [Humalog KwikPen Insulin] 100 unit/mL insulin pen 32 unit SUBCUT TID Patient Comments: PATIENT EXPERIENCES LOW BLOOD SUGAR IN THE HOSPITAL albuterol sulfate 90 mcg/actuation HFA aerosol inhaler 1 inh inhalation QID PRN (Reason: shortness of breath or wheezing) Qty: 6.7 0RF oxybutynin chloride 15 mg tablet extended release 24hr 15 mg PO DAILY ondansetron 4 mg tablet,disintegrating 4 mg PO Q8H PRN (Reason: nausea and vomiting) Qty: 10 0RF lidocaine 5 % ointment 1 applic topical TID PRN (Reason: skin irritation) Qty: 50 0RF prednisone 10 mg tablet 10 mg PO DAILY Xarelto 20 mg tablet 20 mg PO 0900 pantoprazole [Protonix] 40 mg tablet,delayed release (DR/EC) 40 mg PO BID 30 Days Qty: 60 0RF hydrocodone-acetaminophen 10-325 mg tablet 1 tablet PO Q6H PRN (Reason: pain (scale score 7-10)) 5 Days Qty: 10 0RF furosemide [Lasix] 20 mg tablet 20 mg PO DAILY Qty: 30 0RF Follow-up/Referrals: Shahla,Justen Spicer MD [Primary Care Provider] Time of Disposition: 15:40
== END 2025-02-15 15:47 | disposition home or self-care (01) ==
PROVIDERS: Emergency Provider Nurse Practitioner Family; PCP Internal Medicine
DX: M24.9 Joint derangement, unspecified (principal); I50.9 Heart failure, unspecified; E11.42 Type 2 diabetes mellitus with diabetic polyneuropathy; E11.43 Type 2 diabetes mellitus with diabetic autonomic (poly)neuropathy; K31.84 Gastroparesis; Z79.4 Long term (current) use of insulin; G25.81 Restless legs syndrome; G47.33 Obstructive sleep apnea (adult) (pediatric); N32.81 Overactive bladder; E66.01 Morbid (severe) obesity due to excess calories; Z68.42 Body mass index [BMI] 45.0-49.9, adult; F41.9 Anxiety disorder, unspecified; F32.A Depression, unspecified; Z86.718 Personal history of other venous thrombosis and embolism; Z86.711 Personal history of pulmonary embolism; Z85.3 Personal history of malignant neoplasm of breast; Z90.13 Acquired absence of bilateral breasts and nipples; Z96.651 Presence of right artificial knee joint; Z79.01 Long term (current) use of anticoagulants
CPT/HCPCS: 73030; 99213; A4565; G0463

== ENCOUNTER 2025-02-25 03:46 | Emergency (ER) | payer MEDICARE, MEDICAID, SELFPAY ==
[2025-02-25] VITALS (18 sets, daily range): BP systolic 102–145; BP diastolic 65–82; PULSE 77–98; RESP 14–25; TEMP 37.2; O2SAT 95–100
--- NOTE | ~2025-02-25 | CT_ITS ---
CT HEAD NON-CONTRAST Clinical History: difficulty finding words Comparison: CT brain 10/23/2023 Technique: Unenhanced axial images skull base to vertex Coronal, sagittal reformats CT images acquired with automatic exposure control for dose reduction DLP: 681 mGy-cm Findings: Sulci, ventricles: Unremarkable. No intracerebral hemorrhage. No evidence acute territorial infarct. No mass effect, midline shift. Bony calvarium intact. Visualized paranasal sinuses: Right maxillary mucosal thickening. Mastoid air cells: Clear. IMPRESSION: 1. No acute intracranial findings. Reviewed, dictated and finalized at location R. D CARE NURSE
--- NOTE | ~2025-02-25 | XR_ITS ---
Examination: XR chest 1V portable Clinical History: shaking, difficulty finding words Comparison: 02/03/2025 Technique: Portable AP Findings: Spinal stimulator leads Heart size mildly prominent. Mildly increased interstitial markings. No acute bony abnormality. IMPRESSION: 1. Interstitial pulmonary edema and/or pneumonitis not excluded. Reviewed, dictated and finalized at location R. E SETTER
--- OUTSIDE RECORDS SUMMARY | 2025-02-25 03:50 | XMS_ITS | Encounter Summary ---
Author Organization [facility] Address [address] [place] [address] Phone Care Team Providers Care Rn Paralegal Name Role Phone Justen Gale MD Primary Care Provider David Roberts APRN, GUIDANCE SERVICES COORDINATOR Unavailable [phone] Annel Rod MD Unavailable Reason for Visit * Reason Comments Medication Refill Encounter Details Date Type Department Care Team (Late st Contact Info) Description 02/17/2021 Refill [facility] - Family Medicine [facility] [address] [place] [phone] Justen Gale MD [address] [address] Medication Refill Social History Tobacco Use Types [...] 06/05/20 Office Visit Pili Elkins APRN, [facility] [place] Showing recent visits within past 365 days and meeting all other requirements Future Appointments Date Type Provider Dept 03/02/21 Appointment Vince Hermosillo MD [facility] Showing future appointments within next 90 days and meeting all other requirements documented in this encounter Plan of Treatment Upcoming Encounters Date Type Department Care Team (Late st Contact Info) Description 03/19/2025 2:00 PM DEPARTMENT STORE MANAGER Office Visit [facility] - Endocrinology - [place] [address] [facility] [address] Annel Rod MD #2 [facility] [address] [place] [address] 05/29/2025 1:30 PM DEPARTMENT STORE MANAGER Office Visit [facility] Family Medicine - [place] [address] [place] [address] Justen Gale MD #2 [facility] [address] [place] [address] documented as of this encounter Visit Diagnoses Not on filedocumented in this encounter Additional Health Concerns Infection Onset Date Last Indicated Resolved Time COVID - 19 08/01/2024 08/01/2024 08/01/2024 3:20 PM CDT Respiratory Rule-Out 11/18/2024 11/18/2024 025 7:18 AM CDT Assessment Noted Time PHQ-9 Depression Total Score: 0 07/21/19 21 3:00 PM CDT documented as of this encounter Care Teams Rn Paralegal Relationship Specialty Start Date End Date Justen Gale MD [address]2 [facility] [address] [place] [address] PCP - General Family Medicine 10/17/17 David Roberts APRN, GUIDANCE SERVICES COORDINATOR [address]2 [facility] [address] Nurse Practitioner Advanced Practice Nurse 01/31/22 Annel Rod MD #[address] [address] Consulting Physician Endocrinology 07/01/22 documented as of this encounter
--- OUTSIDE RECORDS SUMMARY | 2025-02-25 03:50 | XMS_ITS | Encounter Summary ---
Author Organization [facility] Address [address] [place] [address] Phone Care Team Providers Care Waistline Joiner Lockstitch Name Role Phone Justen Gale MD Primary Care Provider [phone] Daivd Roberts APRN, CUSTOMER COMPLAINT CLERK Unavailable [phone] Annel Rod MD Unavailable Reason for Visit * Reason Comments Medication Refill Encounter Details Date Type Department Care Team (Late st Contact Info) Description 08/30/2022 Refill [facility] - Family Medicine [facility] [address] [place] [phone] Justen Gale MD #[address] [address] Medication Refill Social History Tobacco Use Types [...] 07/05/22 Office Visit Pili Elkins APRN, NETTA [facility] [place] 05/02/22 Office Visit [facility] 03/03/22 [facility] [place] 01/03/22 [facility] Dannielle Berg [facility] [place] 12/07/21 Office Visit Pili Elkins APRN, [facility]TA [facility] 11/09/21 Office Visit [facility] El[facility] [place] 10/08/21 Office Visit Angelito Alegria APRN, CUSTOMER COMPLAINT CLERK [facility] [place] 08/30/21 Office Visit [facility] Showing recent visits within past 365 days and meeting all other requirements Future Appointments No visits were found meeting these conditions. Showing future appointments within next 90 days and meeting all other requirements documented in this encounter Plan of Treatment Upcoming Encounters Date Type Department Care Team (Late st Contact Info) Description 03/19/2025 2:00 PM HAND FLESHER Office Visit [facility] - Endocrinology [facility] [address] [facility] [place] [address] Annel Rod MD [address] [address] 05/29/2025 1:30 PM HAND FLESHER Office Visit [facility] [address] [place] [address] Justen Gale MD [address] [address] documented as of this encounter Visit Diagnoses Not on filedocumented in this encounter Additional Health Concerns Infection Onset Date Last Indicated Resolved Time COVID - 19 08/01/2024 08/01/2024 08/01/2024 3:20 PM CDT Respiratory Rule-Out 11/18/2024 11/18/2024 025 7:18 AM CDT Assessment Noted Time PHQ-9 Depression Total Score: 0 07/21/19 21 3:00 PM CDT documented as of this encounter Care Teams Waistline Joiner Lockstitch Relationship Specialty Start Date End Date Justen Gale MD [address] [address] PCP - General Family Medicine 10/17/17 David Roberts APRN, CUSTOMER COMPLAINT CLERK [address] [place] [address] Nurse Practitioner Advanced Practice Nurse 01/31/22 Annel Rod MD [address] [place] [address] Consulting Physician Endocrinology 07/01/22 documented as of this encounter
--- OUTSIDE RECORDS SUMMARY | 2025-02-25 03:50 | XMS_ITS | Encounter Summary ---
Author Organization [facility] Address [address] [place] [address] Phone Care Team Providers Care Network Support Administrator Name Role Phone Justen Gale MD Primary Care Provider [phone] David Roberts APRN, MVA REACTOR OPERATOR HEAD Unavailable [phone] Annel Rod MD Unavailable Reason for Visit * Reason Onset Date Comments Advice Only 11/21/2023 Encounter Details Date Type Department Care Team (Late st Contact Info) Description 11/21/2023 Telephone [facility] [address] [place] [address] Justen Gale MD #[address] [address] Advice Only Social History Tobacco Use Types [...] 11/21/2023 3:17 PM CDT RFC: Alejandra from [facility] is calling to state that patient is listed as being a diabteic but is not on a statin. Please call Alejandra (relationship to patient n/a) back regarding above referenced patient. Patient's Provider is Justen Gale MD . documented in this encounter Plan of Treatment Upcoming Encounters Date Type Department Care Team (Late st Contact Info) Description 03/19/2025 2:00 PM RN SCHOOL Office Visit [facility] - Endocrinology - [place] [address] [place] [address] Annel Rod MD #2 [facility] [address] [place] [address] 05/29/2025 1:30 PM RN SCHOOL Office Visit [facility] Family Medicine [facility] [address] [place] [address] Justen Gale MD #2 [facility] [address] [place] [address] documented as of this encounter Visit Diagnoses Not on filedocumented in this encounter Additional Health Concerns Infection Onset Date Last Indicated Resolved Time COVID - 19 08/01/2024 08/01/2024 08/01/2024 3:20 PM CDT Respiratory Rule-Out 11/18/2024 11/18/2024 025 7:18 AM CDT Assessment Noted Time PHQ-9 Depression Total Score: 8 01/18/20 23 2:24 PM CDT documented as of this encounter Care Teams Network Support Administrator Relationship Specialty Start Date End Date Justen Gale MD #2 [facility] [address] [place] [address] PCP - General Family Medicine 10/17/17 David Roberts, FIRST HELPER, MVA REACTOR OPERATOR HEAD [address] [place] [address] Nurse Practitioner Advanced Practice Nurse 01/31/22 Annel Rod MD #[address] [phone] Consulting Physician Endocrinology 07/01/22 documented as of this encounter
--- OUTSIDE RECORDS SUMMARY | 2025-02-25 03:50 | XMS_ITS | Encounter Summary ---
Author Organization [facility] Address [address] [place] [address] Phone Care Team Providers Care Orientation And Mobility Instructor Name Role Phone Justen Gale MD Primary Care Provider David Roberts APRN, GERIATRIC NURSING ASSISTANT Unavailable [phone] Annel Rod MD Unavailable Encounter Details Date Type Department Care Team (Late st Contact Info) Description 06/05/2020 [facility] [address] [place] [address] Pili Elkins, ZAMZAM, GERIATRIC NURSING ASSISTANT #[address] [address] Frequency of micturition Social History [...] COVID-19? No / Unsure 2020 11:37 AM INCUBATOR TENDER documented as of this encounter Plan of Treatment Upcoming Encounters Date Type Department Care Team (Late st Contact Info) Description 03/19/2025 2:00 PM INCUBATOR TENDER Office Visit [facility] - Endocrinology [facility] [address] [place] [address] Annel Rod MD #2 [facility] [address] [place] [address] 05/29/2025 1:30 PM INCUBATOR TENDER Office Visit [facility] - Family Medicine [facility] [address] [place] [address] Justen Gale MD #2 [facility] [address] [place] [address] documented as of this encounter Procedures Procedure Name Priority Date/Time Associated Diagnosis Comments URINALYSIS REFLEX IF INDICATED BY ABNORMAL RESULTS Routine 06/05/2020 4:45 PM INCUBATOR TENDER Frequency of micturition documented in this encounter Results * (ABNORMAL) URINALYSIS REFLEX IF INDICATED BY ABNORMAL RESULTS (06/05/2020 4:45 PM INCUBATOR TENDER) SPECIFIC GRAVITY 1.020 1.003 - 1.030 06/05/2020 5:19 PM INCUBATOR TENDER [facility] URINE PH 5.0 5.0 - 9.0 06/05/2020 5:19 PM INCUBATOR TENDER [facility] WBC ESTERASE Negative Negative 06/05/2020 5:19 PM INCUBATOR TENDER [facility] NITRITE Negative Negative 06/05/2020 5:19 PM INCUBATOR TENDER [facility] PROTEIN, RANDOM URINE Negative Negative 06/05/2020 5:19 PM INCUBATOR TENDER [facility] URINE GLUCOSE, QUAL Negative Negative 06/05/2020 5:19 PM INCUBATOR TENDER [facility] URINE KETONES Negative Negative 06/05/2020 5:19 PM INCUBATOR TENDER [facility] UROBILINOGEN Normal Normal mg/dL 06/05/2020 5:19 PM INCUBATOR TENDER [facility] URINE BILIRUBIN Negative Negative 5:19 PM INCUBATOR TENDER [facility] URINE BLOOD 25 /uL(A) Negative leandro/ul 06/05/2020 5:19 PM INCUBATOR TENDER [facility] URINALYSIS COLOR Yellow 06/05/19 5:19 PM INCUBATOR TENDER [facility] URINALYSIS CLARITY Clear 06/05/2020 5:19 PM INCUBATOR TENDER [facility] WBC (Urine) 0-5 Negative, 0-5 /hpf 06/05/2020 5:19 PM INCUBATOR TENDER [facility] URINE RBC'S 3-5(A) Negative, 0-2 /hpf 06/05/2020 5:19 PM INCUBATOR TENDER [facility] EPITHELIAL CELLS Small amount /lpf 2020 5:19 PM INCUBATOR TENDER [facility] BACTERIA, URINE Few(A) Negative /hpf 06/05/2020 5:19 PM INCUBATOR TENDER [facility] Urine URINE SPECIMEN / Unknown Non-Phlebotomy Collection / Unknown 06/05/2020 4:45 PM INCUBATOR TENDER 06/05/2020 5:00 PM INCUBATOR TENDER us Pili Elkins PROBATE JUDGE, GERIATRIC NURSING ASSISTANT URINE ORDERABLES F inal Result [facility] [address] [place] [address] documented in this encounter Visit Diagnoses Diagnosis Frequency of micturition Urinary frequency documented in this encounter Additional Health Concerns Infection Onset Date Last Indicated Resolved Time COVID - 19 08/01/2024 08/01/2024 08/01/2024 3:20 PM CDT Respiratory Rule-Out 11/18/2024 11/18/20242 025 7:18 AM CDT Assessment Noted Time PHQ-9 Depression Total Score: 0 09/08/19 19 1:00 PM CDT documented as of this encounter Care Teams Orientation And Mobility Instructor Relationship Specialty Start Date End Date Justen Gale MD #2 [facility] [address] [place] [address] PCP - General Family Medicine 10/17/17 David Roberts, PROBATE JUDGE, GERIATRIC NURSING ASSISTANT [address] [place] [address] Nurse Practitioner Advanced Practice Nurse 01/31/22 Annel Rod MD #2 [facility] [address] [place] [address] Consulting Physician Endocrinology 07/01/22 documented as of this encounter
--- OUTSIDE RECORDS SUMMARY | 2025-02-25 03:50 | XMS_ITS | Encounter Summary ---
Author Organization [facility] Address [address] [place] [address] Phone Care Team Providers Care Lens Edge Grinder Machine Name Role Phone Justen Gale MD Primary Care Provider [phone] David Roberts APRN, LITHOSTRIPPER Unavailable [phone] Annel Rod MD Unavailable Reason for Visit * Reason Comments Medication Refill Encounter Details Date Type Department Care Team (Late st Contact Info) Description 07/12/2022 Refill [facility] - Family Medicine [facility] #2 [place] [phone] Justen Gale MD #[address] [address] Medication Refill Social History Tobacco Use Types [...] 07/05/22 Office Visit Pili Elkins APRN, NETTA [facility] [place] 05/02/22 Office Visit Justen Gale MD [facility] 03/03/22 Office Visit Pili Elkins APRN, NETTA [facility] [place] 01/03/22 Office Visit Dannielle Berg [facility] 12/07/21 Office Visit Pili Elkins APRN, NETTA [facility] 11/09/21 Office Visit Pili Elkins APRN, NETTA [facility] [place] 10/08/21 Office Visit Angelito Alegria APRN, NETTA [facility] 08/30/21 Office Visit [facility] Showing recent visits within past 365 days and meeting all other requirements Future Appointments No visits were found meeting these conditions. Showing future appointments within next 90 days and meeting all other requirements documented in this encounter Plan of Treatment Upcoming Encounters Date Type Department Care Team (Late st Contact Info) Description 03/19/2025 2:00 PM TALENT MANAGEMENT MANAGER Office Visit [facility] Endocrinology [facility] #[address] [place] [address] Annel Rod MD #[address] [address] 05/29/2025 1:30 PM TALENT MANAGEMENT MANAGER Office Visit [facility] Family Medicine [facility] #[address] [place] [address] Justen Gale MD #[address] [address] documented as of this encounter Visit Diagnoses Not on filedocumented in this encounter Additional Health Concerns Infection Onset Date Last Indicated Resolved Time COVID - 19 08/01/2024 08/01/2024 08/01/2024 3:20 PM CDT Respiratory Rule-Out 11/18/2024 11/18/2024 025 7:18 AM CDT Assessment Noted Time PHQ-9 Depression Total Score: 0 07/21/19 21 3:00 PM CDT documented as of this encounter Care Teams Lens Edge Grinder Machine Relationship Specialty Start Date End Date Justen Gale MD #[address] [address] PCP - General Family Medicine 10/17/17 David Roberts, CLIENT CONSULTANT, LITHOSTRIPPER [address] [place] [address] Nurse Practitioner Advanced Practice Nurse 01/31/22 Annel Rod MD #[address] [place] [address] Consulting Physician Endocrinology 07/01/22 documented as of this encounter
--- OUTSIDE RECORDS SUMMARY | 2025-02-25 03:50 | XMS_ITS | Encounter Summary ---
Author Organization [facility] Address [address] [place] [address] Phone Care Team Providers Care Expense Analyst Name Role Phone Justen Gale MD Primary Care Provider [phone] David Roberts APRN, HYDRO PLANT SITE MANAGER Unavailable [phone] Annel Rod MD Unavailable Reason for Visit * Reason Comments Medication Refill Encounter Details Date Type Department Care Team (Late st Contact Info) Description 09/30/2023 Refill [facility] - Endocrinology [facility] #[address] [place] [address] Annel Rod MD #[address] [address] Medication Refill Social History Tobacco [...] AM CDT Medication(s) refilled and signed per [facility] Chronic Medication Refill Standing Order for Pediatric and Adult Patients. documented in this encounter Plan of Treatment Upcoming Encounters Date Type Department Care Team (Late st Contact Info) Description 03/19/2025 2:00 PM SLATE TRIMMER Office Visit [facility] - Endocrinology - [place] [address] [place] [address] Annel Rod MD #[address] [address] 05/29/2025 1:30 PM SLATE TRIMMER Office Visit [facility] - Family Medicine [facility] #[address] [place] [address] Justen Gale MD #[address] [address] documented as of this encounter Visit Diagnoses Not on filedocumented in this encounter Additional Health Concerns Infection Onset Date Last Indicated Resolved Time COVID - 19 08/01/2024 08/01/2024 08/01/2024 3:20 PM CDT Respiratory Rule-Out 11/18/2024 11/18/2024 025 7:18 AM CDT Assessment Noted Time PHQ-9 Depression Total Score: 8 01/18/20 23 2:24 PM CDT documented as of this encounter Care Teams Expense Analyst Relationship Specialty Start Date End Date Justen Gale MD #2 [facility] [address] [place] [address] PCP - General Family Medicine 10/17/17 David Roberts APRN, HYDRO PLANT SITE MANAGER #[address] [place] [address] Nurse Practitioner Advanced Practice Nurse 01/31/22 Annel Rod MD #[address] [address] Consulting Physician Endocrinology 07/01/22 documented as of this encounter
--- OUTSIDE RECORDS SUMMARY | 2025-02-25 03:50 | XMS_ITS | Encounter Summary ---
Author Organization [facility] Address [address] [place] [address] Phone Care Team Providers Care Education Sales Consultant Name Role Phone Justen Gale MD Primary Care Provider [phone] David Roberts APRN, PROCESS SAFETY SPECIALIST Unavailable [phone] Annel Rod MD Unavailable Reason for Visit * Reason Comments Medication Refill Encounter Details Date Type Department Care Team (Late st Contact Info) Description 04/13/2023 Refill [facility] - Endocrinology [facility] #2 [place] [address] Annel Rod MD #[address] [address] Medication Refill Social History Tobacco [...] Jennifer Wang, RN - 04/14/2023 10:00 AM REAL ESTATE SERVICES ADMINISTRATOR Requested Prescriptions Pending Prescriptions Disp Refills ??? Continuous Blood Gluc Sensor (FreeStyle Eileen 2 Sensor) Misc [Pharmacy Med Name: FREESTYLE EILEEN 2 SENSOR] 6 Each 1 Sig: APPLY 1 SENSOR AND WEAR FOR 14 DAYS TO CHECK BLOOD SUGAR Next appt: 05/30/2023 ESTATE SERVICES ADMINISTRATOR documented in this encounter Plan of Treatment Upcoming Encounters Date Type Department Care Team (Late st Contact Info) Description 03/19/2025 2:00 PM REAL ESTATE SERVICES ADMINISTRATOR Office Visit [facility] - Endocrinology [facility] #[address] [place] [address] Annel Rod MD #2 [facility] [address] [place] [address] 05/29/2025 1:30 PM REAL ESTATE SERVICES ADMINISTRATOR Office Visit [facility] - Family Medicine [facility] #[address] [place] [address] Justen Gale MD #2 [facility] [address] [place] [address] documented as of this encounter Visit Diagnoses Not on filedocumented in this encounter Additional Health Concerns Infection Onset Date Last Indicated Resolved Time COVID - 19 08/01/2024 08/01/2024 08/01/2024 3:20 PM CDT Respiratory Rule-Out 11/18/2024 11/18/2024 025 7:18 AM CDT Assessment Noted Time PHQ-9 Depression Total Score: 8 01/18/20 23 2:24 PM CDT documented as of this encounter Care Teams Education Sales Consultant Relationship Specialty Start Date End Date Justen Gale MD #2 [facility] [address] [place] [address] PCP - General Family Medicine 10/17/17 David Roberts APRN, PROCESS SAFETY SPECIALIST #[address] [place] [address] Nurse Practitioner Advanced Practice Nurse 01/31/22 Annel Rod MD #2 [facility] [address] [place] [address] Consulting Physician Endocrinology 07/01/22 documented as of this encounter
--- OUTSIDE RECORDS SUMMARY | 2025-02-25 03:50 | XMS_ITS | Encounter Summary ---
Author Organization [facility] Address [address] [place] [address] Phone Care Team Providers Care Lining Folder Name Role Phone Justen Gale MD Primary Care Provider [phone] David Roberts APRN, FURNACE HELPER Unavailable [phone] Annel Rod MD Unavailable Reason for Visit * Reason Comments Medication Refill Encounter Details Date Type Department Care Team (Late st Contact Info) Description 07/14/2022 Refill [facility] - Family Medicine [facility] #[address] [place] [phone] Justen Gale MD #[address] [address] Medication Refill Social History Tobacco Use Types [...] st Contact Info) Description 03/19/2025 2:00 PM THEATRE PROFESSOR Office Visit [facility] - Endocrinology [facility] #2 [place] [address] Annel Rod MD #[address] [address] 05/29/2025 1:30 PM THEATRE PROFESSOR Office Visit [facility] - Family Medicine [facility] [address] [place] [address] Justen Gale MD #[address] [address] documented as of this encounter Visit Diagnoses Not on filedocumented in this encounter Additional Health Concerns Infection Onset Date Last Indicated Resolved Time COVID - 19 08/01/2024 08/01/2024 08/01/2024 3:20 PM CDT Respiratory Rule-Out 11/18/2024 11/18/2024 025 7:18 AM CDT Assessment Noted Time PHQ-9 Depression Total Score: 0 07/21/19 21 3:00 PM CDT documented as of this encounter Care Teams Lining Folder Relationship Specialty Start Date End Date Justen Gale MD #2 [facility] [address] [place] [address] PCP - General Family Medicine 10/17/17 David Roberts APRN, FURNACE HELPER #[address] [place] [address] Nurse Practitioner Advanced Practice Nurse 01/31/22 Annel Rod MD #2 [facility] [address] [place] [address] Consulting Physician Endocrinology 07/01/22 documented as of this encounter
--- OUTSIDE RECORDS SUMMARY | 2025-02-25 03:50 | XMS_ITS | Clinical Summary ---
Author Organization [facility] [employer] Address [address] [place] [address] Care Team Providers Care Wellness Program Manager Name Role Phone Justen Gale MD Primary Care Provider [phone] Source Comments [facility] Affiliates and Associated Physician Practices is amultiple site organization consisting of ambulatory clinics and hospital sitesin [place], [place], [place] and [place]. This disclosure is being madepursuant to the Care Everywhere program and may not contain all information available regarding this patient. Last updated 18.[facility] [employer] Allergies Active Allergy Reactions Criticality Noted Date [...] TAKE 1 TABLET BY MOUTH EVERY NIGHT 022 Active Lancets (ONETOUCH DELICA PLUS 33G EXTRA [...] FOR 14 DAYS TO CHECK BLOOD SUGAR 024 Active gabapentin (Neurontin) 300 MG capsule Take 1 (one) capsule by mouth 3 times daily 024 Active oxyBUTYnin CR 24hr (Ditropan XL) [...] to affected area 4 times daily Active diphenhydrAMI NE (Benadryl) 25 MG capsule Take 1 (one) capsule by mouth every 6 hours as needed for Itching Active empagliflozin (Jardiance) 10 MG tablet Take 1 (one) tablet by mouth once daily 30 tablet 2 Active valsartan (Diovan) 80 MG tablet Take 1 (one) tablet by mouth once daily 30 tablet 2 Active methotrexate 2.5 MG tablet Take 6 (six) tablets by mouth every 7 days (once a week) Take 3 tablets in the morning and 3 tablets in the evening Active folic acid (Folvite) 1 MG tablet Take 1 (one) tablet by mouth once daily Active predniSONE (Deltasone) 10 MG tablet Take 2 (two) tablets by mouth daily with breakfast Active cyclobenzapri ne (Flexeril) 5 MG tablet Take 1 (one) tablet by mouth 3 times daily as needed (muscule spasm) 30 tablet Active furosemide (Lasix) 40 MG tablet Take 1 (one) tablet by mouth once daily Active HYDROcodone-a cetaminophen ([place]) 10-325 MG tabletIndicat ions:Nephroli thiasis Take 1 (one) tablet by mouth every 6 hours as needed for Pain 12 tablet Active insulin glargine (Lantus SoloStar) pen Inject 50 (fifty) Units subcutaneously once daily 15 mL 2 Active lidocaine (Lidoderm) 5 % patch Apply 1 (one) patch to skin once daily Apply patch to most painful area and remove after 12 hours. May reapply a new patch 12 hours later. 30 patch Active polyethylene glycol 3350 (Miralax) 17 g packet Take 17 (seventeen) g by mouth once daily as needed for Constipation Active tamsulosin (Flomax) 0.4 MG capsule Take 1 (one) capsule by mouth once daily At the same time every day after a meal. 30 capsule 2 Active HumaLOG KwikPen 100 UNIT/ML pen Inject 13 (thirteen) Units subcutaneously 3 times daily before meals 3 mL 2 Active naloxone HCl (Narcan) 4 MG/0.1ML nasal spray 024 2024 Discontinued(C linical Decision) furosemide (Lasix) 20 [...] needed 12 tablet 2024 Discontinued(C linical Decision) polyethylene glycol 3350 (Miralax) 17 g packet Take 17 (seventeen) g by mouth once daily 2024 Discontinued predniSONE (Deltasone) 10 MG tablet Take 1 (one) tablet by mouth daily with breakfast 2024 Discontinued(L ist Clean-Up) senna-docusat e (Senokot-S) 8.6-50 MG tablet Take 1 (one) tablet by mouth once daily 025 2024 Discontinued(L ist Clean-Up) Benzocaine-Me nthol (throat lozenge) Take 1 (one) lozenge by mouth every 2 hours as needed for Sore Throat 2024 Discontinued(L ist Clean-Up) HumaLOG KwikPen 100 UNIT/ML pen Inject 6 (six) Units subcutaneously 3 times daily before meals 3 mL 2 025 2024 Discontinued insulin glargine (Lantus SoloStar) pen Inject 20 (twenty) Units subcutaneously once daily 15 mL 2 2024 Discontinued(D ose Adjustment) predniSONE (Deltasone) 10 MG tablet Take 2 (two) tablets by mouth once daily 2024 Discontinued(C linical Decision) furosemide (Lasix) 40 MG tablet Take 1 (one) tablet by mouth 2 times daily 30 tablet 2024 Discontinued HYDROcodone-a cetaminophen ([place]) 10-325 MG tablet Take 1 (one) tablet by mouth every 6 hours as needed for Pain 2024 Discontinued sulfamethoxaz ole-trimethop rim (Bactrim DS; Septra DS) 800-160 MG tablet Take 1 (one) tablet by mouth 2 times daily for 3 days 6 tablet 2024 Active Problems Problem Noted Date Diagnosed Date Nephrolithiasis 02/10/2025 Acute heart failure with pre served ejection [...] Encounters Date Type Department Care Team Description 02/11/2025 8:15 AM CDT Home Care Visit [facility] Health at Home Home Health [address] [place] [address] Vince Youngblood, [address] [place] [address] Antoinette Webber, RN HOME CONNECTIONS TELEPHONE VISIT 02/10/2025 5:41 PM CDT - 02/14/2025 4:15 PM CDT Hospital Encounter HC 2 ORTHO/NEW VIS [address] [place] [address] Maykel Lcaey, Jaylen Carlin MD Hambolu, Kehinde, MD Hospitalist Discharge Disposition: Home or Self Care 02/10/2025 Travel 02/08/2025 1:00 AM CDT Home Care Visit [facility] Health at Home Home Health [facility] [address], [address] [place] [address] Antoinette Webber, RN HOME CONNECTIONS TELEPHONE VISIT 02/07/2025 Home Care Visit [facility] Health at Home Home Health [facility] Vince Youngblood, [facility] [address] [place] [address] Antoinette Webber, RN TELEPHONE ENCOUNTER 02/06/2025 8:30 AM CDT Home Care Visit [facility] Health at Home Home Health [facility] Vince Youngblood, [address] [place] [phone] Antoinette Webber, RN TELEPHONE ENCOUNTER 02/04/2025 7:30 AM CDT Home Care Visit [facility] Health at Home Home Health [facility] [address], [facility] [address] [place] [phone] Darvin Parekh MD Reiser, Dolores P, RN HOME CONNECTIONS TELEPHONE ADMIT 01/30/2025 1:13 AM CDT - 02/02/2025 2:28 PM CDT Hospital Encounter [facility] [address] [place] [address] Patsy Hill MD Usman, Ahsan, MD Seleznev, Ilya, MD Hospitalist Discharge Disposition: Home or Self Care 01/30/2025 Travel 01/08/2025 Telephone [facility] [address] [place] [address] [address] [place] [address] Xavier Coronado MD Scheduling 01/02/2025 12:03 PM CDT - 01/06/2025 6:32 PM CDT Hospital Encounter [facility] 4W TELE [address] [place] [address] Yasmin Matthew DO Brown, Micahla C, MD [...] and heating? Not hard at all 02/01/2025 [facility] - Occupational Stress [...] money to buy more. 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 Gender Identity Not on file Sexual Orientation Not on file Last Filed Vital Signs Vital Sign Reading Time Taken Comments Blood Pressure 142/76 02/14/2025 8:08 AM CDT Pulse 76 02/14/2025 8:08 AM CDT Temperature 36.7 C (98 F) 02/14/2025 8:08 AM CDT Respiratory Rate 18 02/14/2025 8:08 AM CDT Oxygen Saturation 99% 02/14/2025 8:08 AM CDT Inhaled Oxygen Concentration 21% 02/13/2025 1 0:51 PM CDT Weight 126.3 kg (278 lb 8 oz) 02/10/2025 11:39 P M CDT Height 154.9 cm (5' 1) 02/10/2025 11:39 PM CDT Body Mass Index 52.62 02/10/2025 11:39 PM CDT Plan of Treatment Upcoming Encounters Date Type Department Care Team (Late st Contact Info) Description 02/25/2025 8:30 AM VENDING MANAGER Appointment [facility] at Home Home Health [address] , [address] [place] [address] Antoinette Webber, RN 02/25/2025 1:50 PM VENDING MANAGER Office Visit [facility] [address] [facility] [address] [place] [address] Xavier Coronado MD [address] [facility] [address] [place] [address] 03/04/2025 8:15 AM VENDING MANAGER Appointment [facility] Health at Home Home Health [address] , [facility] [address] [place] [address] Antoinette Webber, RN Health Maintenance Due Date Last Done Comments [...] 04/24/2024 DIABETES - URINE PROTEIN SCREENING 04/24/2024 MEDICARE AWV CALENDAR YEAR 2024 COVID-19 VACCINE (3 - season) 2024 05/04/2021, 06/29/2020 INFLUENZA VACCINE (#1) 2024 , 01/17/2023, 01/03/2022, Additional history exists DIABETES-HGB A1C 04/03/2025 01/02/2025, 06/2022, 10/31/2021 DIABETES-SERUM CREATININE 02/14/20262024, 02/13/2025, 02/12/2025, Additional history exists DTAP/TDAP/TD VACCINES (2 - [...] this topic Medical Devices Implanted Type Area Commodity Supervisor Device Identifier Shelf Expiration Date Model / Serial / Lot Lead Nrstm 60cm Penta 3mm Pdl 16 Chnl Implanted:Qt y: 1 on 09/16/2021 by Maxi Gregg MD at [facility] Right: Spine Thoracic [employer] [id number] / / Description:CAMILO Slnt Dura Duraseal Pg Trilysine Amine 5 Implanted:Qt y: 1 on 09/16/2021 by Maxi Gregg MD at [facility] Right: Spine Thoracic [employer] David [id number] / / Description:CAMILO Proclaim Plus 5 Implanted:Qt y: 1 on 02/16/2023 by Maxi Gregg MD at [facility] Left: Back Cardenas Spine [id number] 11/07/2024 [id number] / [id number] / Explanted Type Area Commodity Supervisor Device Identifier Shelf Expiration Date Model / Serial / Lot Gntr Nrstm 1.95inx2.19in Proclaim Elt Implanted:Qty: 1 on 09/16/2021 by Maxi Gregg MD at [facility] Explanted:Qty: 1 on 10/30/2021 by Maxi Gregg MD at [facility] Right: Spine Thoracic [employer] 3660 / / Description:JFran Procedures Procedure Name Priority Date/Time Associated Diagnosis Comments CARDIAC RHYTHM STRIP ORDER 02/17/2025 5:41 PM CDT GLUCOSE - POINT OF CARE Routine 02/14/2025 12:26 PM CDT GLUCOSE - POINT OF CARE Routine 02/14/2025 8:05 AM CDT BASIC METABOLIC PANEL (CALCIUM TOTAL) AM Draw 02/14/2025 4:16 AM CDT MAGNESIUM BLOOD Routine 02/14/2025 4:16 AM CDT GLUCOSE - POINT OF CARE Routine 02/13/2025 9:13 PM CDT GLUCOSE - POINT OF CARE Routine 02/13/2025 5:[address] ABDOMEN PELVIS WO CONTRAST STAT 02/13/2025 4:01 PM CDT Bilateral flank pain URINALYSIS REFLEX MICROSCOPIC REFLEX CULTURE Routine 02/13/2025 1:09 PM CDT CULTURE URINE Routine 02/13/2025 1:09 PM CDT GLUCOSE - POINT OF CARE Routine 02/13/2025 12:29 PM CDT GLUCOSE - POINT OF CARE Routine 02/13/2025 7:25 AM CDT BASIC METABOLIC PANEL (CALCIUM TOTAL) AM Draw 02/13/2025 5:56 AM CDT MAGNESIUM BLOOD Routine 02/13/2025 5:56 AM CDT GLUCOSE - POINT OF CARE Routine 02/12/2025 9:29 PM CDT GLUCOSE - POINT OF CARE Routine 02/12/2025 5:24 PM CDT GLUCOSE - POINT OF CARE Routine 02/12/2025 12:50 PM CDT GLUCOSE - POINT OF CARE Routine 02/12/2025 8:43 AM CDT BASIC METABOLIC PANEL (CALCIUM TOTAL) AM Draw 02/12/2025 3:23 AM CDT MAGNESIUM BLOOD Routine 02/12/2025 3:23 AM CDT GLUCOSE - POINT OF CARE Routine 02/11/2025 8:48 PM CDT CARDIAC EKG ORDER 02/11/2025 8:4 1 PM CDT GLUCOSE - POINT OF CARE Routine 02/11/2025 5:58 PM CDT GLUCOSE - POINT OF CARE Routine 02/11/2025 4:58 PM CDT GLUCOSE - POINT OF CARE Routine 02/11/2025 11:57 AM CDT PT EVAL AND TREAT Routine 02/11/2025 8:2 2 AM CDT OT EVAL AND TREAT Routine 02/11/2025 8:2 2 AM CDT GLUCOSE - POINT OF CARE Routine 02/11/2025 8:16 AM CDT COMPREHENSIVE METABOLIC PANEL STAT 02/11/2025 3:02 AM CDT Nephrolithiasis CBC W/O DIFFERENTIAL STAT 02/11/2025 3:02 AM CDT Nephrolithiasis GLUCOSE - POINT OF CARE Routine 02/10/2025 11:[address] ABDOMEN PELVIS WO CONTRAST STAT 02/10/2025 10:31 PM CDT Bilateral flank pain URINALYSIS REFLEX MICROSCOPIC REFLEX CULTURE STAT 02/10/2025 8:13 PM CDT TROPONIN-I HIGH SENSITIVE REFLEX 1HOUR Timed 02/10/2025 4:10 PM CDT COMPREHENSIVE METABOLIC PANEL STAT 02/10/2025 4:10 PM CDT XR CHEST 2VW STAT 02/10/2025 3:58 PM CDT Shortness of breath Leg swelling NT-PRO BNP STAT 02/10/2025 3:36 PM CDT TROPONIN-I HIGH SENSITIVE BASELINE + 1HR STAT 02/10/2025 3:36 PM CDT MAGNESIUM BLOOD STAT 02/10/2025 3:36 PM CDT CBC W AUTO DIFFERENTIAL STAT 02/10/2025 3:36 PM CDT EKG 12-LEAD STAT 02/10/2025 3:21 PM CDT Shortness of breath Leg swelling CARDIAC RHYTHM STRIP ORDER 02/03/2025 6:27 PM CDT BASIC METABOLIC PANEL (CALCIUM TOTAL) STAT 02/02/2025 [...] 7:24 PM CDT CARDIAC EKG ORDER 01/03/2025 7:1 1 PM CDT GLUCOSE - POINT OF CARE [...] Relevant to Health Maintenance Results * CARDIAC RHYTHM STRIP ORDER (02/17/2025 5:41 PM CDT) Only the most recent of3 resultswithin the time period is included. Narrative 02/17/2025 5:41 PM CDT Ordered by an unspecified provider. us Scanned Document CARDIAC SERVICES ORDERABLES Lloyd lio Result - Final * (ABNORMAL) GLUCOSE - POINT OF CARE (02/14/2025 12:26 PM CDT) Only the most recent of47 resultswithin the time period is included. Glucose WB/POC 316(H) 70 - 99 mg/dL 02/14/2025 12:35 PM CDT [facility] Specimen Type Arterial/C apillary 02/14/2025 12:35 PM CDT [facility] Blood BLOOD SPECIMEN / Unknown 02/14/2025 12:26 PM CDT 02/14/2025 12:35 PM CDT us Mike Bhandari MD LAB - POINT OF CARE ORDERABLE S Final Result [facility] [address] [place], [place] [id number] * (ABNORMAL) BASIC METABOLIC PANEL (CALCIUM TOTAL) (02/14/2025 4:16 AM CDT) Only the most recent of10 resultswithin the time period is included. Glucose 136(H) 70 - 99 mg/dL 02/14/2025 5:57 AM CDT [facility] Sodium 138 136 - 145 mmol/L 02/14/2025 5:57 AM CDT [facility] Potassium 3.8 3.5 - 5.1 mmol/L 02/14/2025 5:57 AM CDT [facility] Chloride 100 98 - 107 mmol/L 02/14/2025 5:57 AM CDT [facility] CO2 27 22 - 29 mmol/L 02/14/2025 5:57 AM CDT [facility] Calcium 9.0 8.4 - 10.4 mg/dL 02/14/2025 5:57 AM CDT [facility] Anion Gap 11 6 - 16 mmol/L 02/14/2025 5:57 AM CDT [facility] BUN 27(H) 7 - 26 mg/dL 02/14/2025 5:57 AM CDT [facility] Creatinine 0.84 0.50 - 1.20 mg/dL 02/14/2025 5:57 AM CDT [facility] eGFR by CKD-EPI 76(L) >=90 mL/min/1.7 3 m2 02/14/2025 5:57 AM CDT [facility] Comment:Estimated Glomerular Filtration Rate (eGFR) calculated using the CKD-EPI Creatinine Equation (2020), per the National Kidney Foundation and [place] [employer] Neph[employer] recommendations. Blood BLOOD SPECIMEN / Unknown Lab Venipuncture / Unknown 02/14/2025 4:16 AM CDT 02/14/2025 5:20 AM CDT Mike Bhandari MD LAB - CHEMISTRY ORDERABLES Fi nal Result [facility] [address] [place] [address] * MAGNESIUM BLOOD (02/14/2025 4:16 AM CDT) Only the most recent of9 resultswithin the time period is included. Magnesium 1.9 1.6 - 2.6 mg/dL 02/14/2025 5:57 AM CDT [facility] Blood BLOOD SPECIMEN / Unknown Lab Venipuncture / Unknown 02/14/2025 4:16 AM CDT 02/14/2025 5:20 AM CDT Mike Bhandari MD LAB - CHEMISTRY ORDERABLES Fi nal Result [facility] [address] [place] [address] * CT Abdomen Pelvis Wo Contrast (02/13/2025 4:01 PM CDT) Only the most recent of2 resultswithin the time period is included. Anatomical Region Laterality Modality Abdomen, Pelvis Computed Tomogra phy 02/13/2025 4:07 PM CDT Impressions 02/13/2025 4:16 PM CDT IMPRESSION: 1. No evidence of acute process. > Interpreting Provider: Fabiola Alegre MD on 02/13/2025 4:16 PM Narrative 02/13/2025 4:16 PM CDT PROCEDURE: CT ABDOMEN PELVIS WO CONTRAST DATE/TIME OF EXAM: 02/13/2025 4:01 PM CLINICAL INFORMATION: None relevant/not provided if blank. Indication: R10.A3: Bilateral flank pain Additional History: COMPARISON: 02/10/2025 TECHNIQUE: CT of the abdomen and pelvis was performed without oral or intravenous contrast. CT dose reduction technique was used, including Automated Exposure Control. FINDINGS: LUNG BASES: Minimal streaky atelectasis. There are mitral annular calcifications. LIVER: Within normal limits. GALLBLADDER: Absent. BILE DUCTS: Nondilated. PANCREAS: Within normal limits. SPLEEN: Within normal limits. ADRENALS: Within normal limits. KIDNEYS/URETERS: 1.7 cm cyst at the right upper pole kidney. The right low pelvis is mildly distended. The mid right ureter is mildly distended. There is no appreciable obstructive stone or mass. PELVIC ORGANS: Not well assessed on noncontrast CT. BOWEL: Normal in course and caliber. No inflammation or obstruction. The appendix is normal. PERITONEUM/RETROPERITONEUM: No ascites, free air or enlarged mesenteric/retroperitoneal lymph nodes. VESSELS: Not well assessed on noncontrast CT. ABDOMINAL WALL: There are multiple clips. There are findings of prior mesh repair. BONES: Sclerosis along the pubic symphysis. Bilateral hip arthritis. Sclerosis along both sacroiliac joints. Multilevel spinal degenerative change. A dorsal column stimulator is incompletely included in the [id number]. Procedure Note Fabiola Alegre MD - 02/13/2025 PROCEDURE: CT ABDOMEN PELVIS WO CONTRAST DATE/TIME OF EXAM: 02/13/2025 4:01 PM CLINICAL INFORMATION: None relevant/not provided if blank. Indication: R10.A3: Bilateral flank pain Additional History: COMPARISON: 02/10/2025 TECHNIQUE: CT of the abdomen and pelvis was performed without oral or intravenous contrast. CT dose reduction technique was used, including Automated ExposureControl. FINDINGS: LUNG BASES: Minimal streaky atelectasis. There are mitral annular calcifications. LIVER: Within normal limits. GALLBLADDER: Absent. BILE DUCTS: Nondilated. PANCREAS: Within normal limits. SPLEEN: Within normal limits. ADRENALS: Within normal limits. KIDNEYS/URETERS: 1.7 cm cyst at the right upper pole kidney. The rightlow pelvis is mildly distended. The mid right ureter is mildly distended.There is no appreciable obstructive stone or mass. PELVIC ORGANS: Not well assessed on noncontrast CT. BOWEL: Normal in course and caliber. No inflammation or obstruction. The appendix is normal. PERITONEUM/RETROPERITONEUM: No ascites, free air or enlarged mesenteric/retroperitoneal lymph nodes. VESSELS: Not well assessed on noncontrast CT. ABDOMINAL WALL: There are multiple clips. There are findings of priormesh repair. BONES: Sclerosis along the pubic symphysis. Bilateral hip arthritis. Sclerosis along both sacroiliac joints. Multilevel spinal degenerative change. A dorsal column stimulator is incompletely included in the [id number]. IMPRESSION: 1. No evidence of acute process. > Interpreting Provider: Fabiola Alegre MD on 02/13/2025 4:16 PM us Mike Bhandari MD CT ORDERABLES Final Result * (ABNORMAL) URINALYSIS REFLEX MICROSCOPIC REFLEX CULTURE (02/13/2025 1:09 PM CDT) Only the most recent of2 resultswithin the time period is included. Color UA Yellow Yellow, Straw 02/13/2025 1:35 PM CDT [facility] Clarity UA Clear Clear 02/13/2025 1:35 PM CDT [facility] Glucose UA Normal Normal 02/13/2025 1:35 PM CDT [facility] Bilirubin UA Negative Negative 02/13/2025 1:35 PM CDT [facility] Ketone UA Negative Negative 02/13/2025 1:35 PM CDT [facility] Specific [place] UA 1.016 1.005 - 1.030 02/13/2025 1:35 PM CDT [facility] Blood UA Negative Negative 02/13/2025 1:35 PM CDT [facility] pH UA 5.0 5.0 - 8.0 02/13/2025 1:35 PM CDT [facility] Protein UA Negative Negative 02/13/2025 1:35 PM CDT [facility] Urobilinogen UA Normal Normal mg/dL 02/13/2025 1:35 PM CDT [facility] Nitrite UA Positive(A) Negative 02/13/2025 1:35 PM CDT [facility] Leukocyte Esterase UA 500 PAO/uL(A) Negative 02/13/2025 1:35 PM CDT [facility] RBC UA 0-2 0 - 5 # /hpf 02/13/2025 1:35 PM CDT [facility] WBC UA 21-50(A) 0 - 5 # /hpf 02/13/2025 1:35 PM CDT [facility] Bacteria UA 1+(A) None Seen 02/13/2025 1:35 PM CDT [facility] Squamous Epithelial Cells None Seen 0 - 5 /hpf 02/13/2025 1:35 PM CDT [facility] Mucus UA 3+ /LPF 02/13/2025 1:35 PM CDT [facility] Hyaline Casts 3-5(A) 0 - 2 /LPF 02/13/2025 1:35 PM CDT [facility] Reflex Status Culture to follow 02/13/2025 1:35 PM CDT [facility] Urine URINE SPECIMEN OBTAINED BY CLEAN CATCH PROCEDURE / Unknown Collection / Unknown 02/13/2025 1:09 PM CDT 02/13/2025 1:27 PM CDT us Mike Bhandari MD LAB - URINALYSIS ORDERABLES F inal Result [facility] [address] [place] [address] * (ABNORMAL) CULTURE URINE (02/13/2025 1:09 PM CDT) Culture Urine 50,000-100,000 CFU/mL Escherichia coli(A) [place] 02/14/2025 10:00 PM CDT [facility] Urine URINE SPECIMEN OBTAINED BY CLEAN CATCH PROCEDURE / Unknown Collection / Unknown 02/13/2025 1:09 PM CDT 02/13/2025 1:27 PM CDT Narrative Organism Antibiotic Method Susceptibility [...] Ciprofloxacin TERRANCE <=0.25 ug/mL: Susceptible Escherichia coli Gentamicin TERRANCE <=1 ug/mL: Susceptible [...] UTIs, use alternative cefazolin susceptibility result above. Mike Bhandari MD LAB - MICROBIOLOGY ORDERABLES Final Result [facility] [address] [place] [address], [facility] [phone] * CARDIAC EKG ORDER (02/11/2025 8:41 PM CDT) Only the most recent of3 resultswithin the time period is included. Narrative 02/11/2025 8:41 PM CDT Ordered by an unspecified provider. us Scanned Document CARDIAC SERVICES ORDERABLES Fin al Result * (ABNORMAL) CBC W/O DIFFERENTIAL (02/11/2025 3:02 AM CDT) Only the most recent of2 resultswithin the time period is included. WBC 12.3(H) 4.0 - 10.7 x10E9/L 02/11/2025 3:48 AM CDT [facility] RBC Count 4.22 3.90 - 5.20 x10E12/L 02/11/2025 3:48 AM CDT [facility] Hemoglobin 11.9 11.9 - 15.8 g/dL 02/11/2025 3:48 AM CDT [facility] Hematocrit 37.9 34.8 - 46.1 % 02/11/2025 3:48 AM CDT [facility] MCV 89.8 80.0 - 98.0 fL 02/11/2025 3:48 AM CDT [facility] MCH 28.2 26.7 - 33.6 pg 02/11/2025 3:48 AM CDT [facility] MCHC 31.4(L) 31.7 - 36.3 g/dL 02/11/2025 3:48 AM CDT [facility] RDW-CV 14.2 11.3 - 14.8 % 02/11/2025 3:48 AM CDT [facility] Platelet Count 269 150 - 420 x10E9/L 02/11/2025 3:48 AM CDT [facility] MPV 9.8 7.8 - 11.4 fL 02/11/2025 3:48 AM CDT [facility] Blood BLOOD SPECIMEN / Unknown Lab Venipuncture / Unknown 02/11/2025 3:02 AM CDT 02/11/2025 3:40 AM CDT us Jaylen Tran MD LAB - HEMATOLOGY ORDERABLES Deann colby Result [facility] [address] [place] [address] * (ABNORMAL) COMPREHENSIVE METABOLIC PANEL (02/11/2025 3:02 AM CDT) Only the most recent of4 resultswithin the time period is included. [facility] Glucose 229(H) 70 - 99 mg/dL 02/11/2025 4:04 AM CDT [facility] Sodium 138 136 - 145 mmol/L 02/11/2025 4:04 AM CDT [facility] Potassium 3.8 3.5 - 5.1 mmol/L 02/11/2025 4:04 AM CDT [facility] Chloride 101 98 - 107 mmol/L 02/11/2025 4:04 AM CDT [facility] CO2 27 22 - 29 mmol/L 02/11/2025 4:04 AM CDT [facility] Calcium 9.2 8.4 - 10.4 mg/dL 02/11/2025 4:04 AM CDT [facility] Anion Gap 10 6 - 16 mmol/L 02/11/2025 4:04 AM CDT [facility] BUN 22 7 - 26 mg/dL 02/11/2025 4:04 AM CDT [facility] Creatinine 0.72 0.50 - 1.20 mg/dL 02/11/2025 4:04 AM CDT [facility] Alkaline Phosphatase 61 40 - 150 U/L 02/11/2025 4:04 AM CDT [facility] ALT 31 6 - 57 U/L 02/11/2025 4:04 AM CDT [facility] AST 16 10 - 48 U/L 02/11/2025 4:04 AM CDT [facility] Protein Total 6.6 6.4 - 8.3 gm/dL 02/11/2025 4:04 AM CDT [facility] Albumin 3.2 3.1 - 4.5 gm/dL 02/11/2025 4:04 AM CDT [facility] Bilirubin Total 0.5 0.2 - 1.2 mg/dL 02/11/2025 4:04 AM CDT [facility] eGFR by CKD-EPI >90 >=90 mL/min/1.7 3 m2 02/11/2025 4:04 AM CDT [facility] Comment:Estimated Glomerular Filtration Rate (eGFR) calculated using the CKD-EPI Creatinine Equation (2020), per the National Kidney Foundation and [place] [employer] of Nephrology recommendations. Blood BLOOD SPECIMEN / Unknown Lab Venipuncture / Unknown 02/11/2025 3:02 AM CDT 02/11/2025 3:40 AM CDT Jaylen Tran MD LAB - CHEMISTRY ORDERABLES Final Result Performing Organization Address City/[facility] Co de Phone Number [facility] [address] [place] [phone] * TROPONIN-I HIGH SENSITIVE REFLEX 1HOUR (02/10/2025 4:10 PM CDT) Only the most recent of3 resultswithin the time period is included. Troponin I High Sensitive 6 <=14 ng/L 02/10/2025 5:01 PM CDT [facility] Delta Troponin I HS 02/10/2025 5:01 PM CDT [facility] Comment:Delta value intentio yissel not calculated. Baseline to 1 hour specimen collection interval exceeded. Blood BLOOD SPECIMEN / Unknown Venipuncture / Unknown 02/10/2025 4:10 PM CDT 02/10/2025 4:30 PM CDT us Josué Bernal PA-C LAB - CHEMISTRY ORDERABLE S Final Result [facility] [address] [place] [phone] * XR CHEST 2VW (02/10/2025 3:58 PM CDT) Anatomical Region Laterality Modality Chest Radiographic Lizeth ging 02/10/2025 4:04 PM CDT Narrative 02/10/2025 4:05 PM CDT PROCEDURE: XR CHEST 2VW DATE/TIME OF EXAM: 02/10/2025 3:58 PM CLINICAL INFORMATION: None relevant/not provided if blank. Indication: R06.02: Shortness of breath M79.89: Leg swelling Additional History: Findings/impression: No focal consolidation is seen. No pleural effusion is seen. Heart is normal in size. Mediastinal contours appear normal. No pneumothorax identified. > Interpreting Provider: Trevor Chandler MD on 02/10/2025 4:05 PM Procedure Note Trevor Chandler MD - 02/10/2025 PROCEDURE: XR CHEST 2VW DATE/TIME OF EXAM: 02/10/2025 3:58 PM CLINICAL INFORMATION: None relevant/not provided if blank. Indication: R06.02: Shortness of breath M79.89: Leg swelling Additional History: Findings/impression: No focal consolidation is seen. No pleural effusionis seen. Heart is normal in size. Mediastinal contours appear normal. No pneumothorax identified. > Interpreting Provider: Trevor Chandler MD on 02/10/2025 4:05 PM Josué Bernal PA-C DIAGNOSTIC IMAGING ORDERA BLES Final Result * NT-PRO BNP (02/10/2025 3:36 PM CDT) Only the most recent of2 resultswithin the time period is included. NT-proBNP 168.7 <900.0 pg/mL 02/10/2025 4:04 PM CDT [facility] Blood BLOOD SPECIMEN / Unknown Venipuncture / Unknown 02/10/2025 3:36 PM CDT 02/10/2025 3:42 PM CDT Narrative [facility] - 02/10/2025 4:04 PM CDT NT-pro-BNP values below 300 pg/mL, for individuals 18 or above, have a 99% negative predictive value for excluding acute congestive heart failure (CHF). In patients with eGFR less than 60 mL/min/1.73 m2, caution should be used when interpreting NT-pro-BNP results. Results should be assessed in conjunction with the patient s medical history, clinical examination, and other findings. NT-pro-BNP is measured on the Kiddy analyzer using chemiluminescent microparticle immunoassay (CMIA) technology. Josué MCKEON-C LAB - CHEMISTRY ORDERABLE S Final Result Performing Organization Address City/[facility]/ZIP Co de Phone Number [facility] [address] [place], [place] [phone] * TROPONIN-I HIGH SENSITIVE BASELINE + 1HR (02/10/2025 3:36 PM CDT) Only the most recent of3 resultswithin the time period is included. [facility] Troponin I High Sensitive 7 <=14 ng/L 02/10/2025 4:03 PM CDT [facility] Blood BLOOD SPECIMEN / Unknown Venipuncture / Unknown 02/10/2025 3:36 PM CDT 02/10/2025 3:42 PM CDT Josué MCKEON-C LAB - CHEMISTRY ORDERABLE S Final Result Performing Organization Address [facility] Co de Phone Number [facility] [address] [place] [phone] * (ABNORMAL) CBC W AUTO DIFFERENTIAL (02/10/2025 3:36 PM CDT) Only the most recent of3 resultswithin the time period is included. [facility] WBC 12.5(H) 4.0 - 10.7 x10E9/L 02/10/2025 3:45 PM CDT [facility] RBC Count 4.32 3.90 - 5.20 x10E12/L 02/10/2025 3:45 PM CDT [facility] Hemoglobin 12.2 11.9 - 15.8 g/dL 02/10/2025 3:45 PM CDT [facility] Hematocrit 38.9 34.8 - 46.1 % 02/10/2025 3:45 PM CDT [facility] MCV 90.0 80.0 - 98.0 fL 02/10/2025 3:45 PM CDT [facility] MCH 28.2 26.7 - 33.6 pg 02/10/2025 3:45 PM CDT [facility] MCHC 31.4(L) 31.7 - 36.3 g/dL 02/10/2025 3:45 PM CDT [facility] RDW-CV 14.4 11.3 - 14.8 % 02/10/2025 3:45 PM CDT [facility] Platelet Count 255 150 - 420 x10E9/L 02/10/2025 3:45 PM CDT [facility] MPV 9.5 7.8 - 11.4 fL 02/10/2025 3:45 PM CDT [facility] Neutrophil % 82.6(H) 41.0 - 74.0 % 02/10/2025 3:45 PM CDT [facility] Lymphocyte % 9.7(L) 17.0 - 47.0 % 02/10/2025 3:45 PM CDT [facility] Monocyte % 5.6 3.0 - 11.0 % 02/10/2025 3:45 PM CDT [facility] Eosinophil % 1.1 0.0 - 7.0 % 02/10/2025 3:45 PM CDT [facility] Basophil % 0.2 0.0 - 1.6 % 02/10/2025 3:45 PM CDT [facility] Immature Granulocytes % 0.8 0.0 - 1.0 % 02/10/2025 3:45 PM CDT [facility] Neutrophil Absolute 10.29(H) 1.60 - 7.50 x10E9/L 02/10/2025 3:45 PM CDT [facility] Lymphocyte Absolute 1.21 1.00 - 4.40 x10E9/L 02/10/2025 3:45 PM CDT [facility] Monocyte Absolute 0.70 0.15 - 1.00 x10E9/L 02/10/2025 3:45 PM CDT [facility] Eosinophil Absolute 0.14 0.00 - 0.60 x10E9/L 02/10/2025 3:45 PM CDT [facility] Basophil Absolute 0.02 0.00 - 0.13 x10E9/L 02/10/2025 3:45 PM CDT [facility] Blood BLOOD SPECIMEN / Unknown Venipuncture / Unknown 02/10/2025 3:36 PM CDT 02/10/2025 3:42 PM CDT Josué Bernal PA-C LAB - HEMATOLOGY ORDERABL ES Final Result Performing Organization Address [facility]/ZIP Co de Phone Number [facility] [address] [place] [address] * EKG 12-LEAD (02/10/2025 3:21 PM CDT) Only the most recent of3 resultswithin the time period is included. Ventricular Rate 76 BPM [facility] Atrial Rate 76 BPM [facility] P-R Interval 126 ms [facility] QRS Duration ms 88 ms [facility] Q-T Interval ms 378 ms [facility] QTC Calculation (Bezet) 425 ms [facility] Calculated P Clayton 51 degrees [facility] Calculated R Clayton 27 degrees [facility] Calculated T Clayton 70 degrees [facility] Interpretation EKG NORMAL SINUS RHYTHM NORMAL ECG WHEN COMPARED WITH ECG OF 30-JAN-2025 01:07, NO SIGNIFICANT CHANGE WAS FOUND Confirmed by DO GRAVES STEPHANIE ([id number]) on 02/11/2025 6:01:10 PM [facility] 02/10/2025 3:21 PM CDT 02/11/2025 6:01 PM CDT us Josué Bernal PA-C ECG ORDERABLES Edited Re sult - Final Performing Organization Address [facility] Co de Phone Number [facility] * LIPID PROFILE (01/31/2025 3:07 AM CDT) Cholesterol 176 <200 mg/dL 01/31/2025 4:09 AM CDT [facility] Triglycerides 114 <150 mg/dL 01/31/2025 4:09 AM CDT [facility] HDL Cholesterol 60 >40 mg/dL 4:09 AM CDT [facility] LDL Calculated 93 <130 mg/dL 01/31/2025 4:09 AM CDT [facility] Comment:LDL is calculated us ing the Friedewald equation. VLDL Calculated 23 <=30 mg/dL 4:09 AM CDT [facility] Chol HDL Ratio 2.9 <4.5 01/31/2025 4:09 AM CDT [facility] LDL/HDL Ratio 1.6 <5.0 01/31/2025 4:09 AM CDT [facility] Blood BLOOD SPECIMEN / Unknown Lab Venipuncture / Unknown 01/31/2025 3:07 AM CDT 01/31/2025 3:36 AM CDT Gil Perrin MD LAB - CHEMISTRY ORDERABLES Fin al Result Performing Organization Address [facility]/ZIP Co de Phone Number [facility] [address] [place], [place] [phone] * STREP A SCREEN DIRECT W RFLX STREP A CULTURE (01/30/2025 2:50 PM CDT) Strep A Rapid Negative Negative 01/30/2025 3:17 PM CDT [facility] Microbiology ENTIRE ANTERIOR SURFACE OF NECK / Unknown Collection / Unknown 01/30/2025 2:50 PM CDT 01/30/2025 3:04 PM CDT Narrative [facility] - 01/30/2025 3:17 PM CDT Test has reflexed to a Strep A culture. Jayla Bettencourt PRODUCTION WEIGHER-COAGULATING DRYING SUPERVISOR LAB - MICROBIOLOGY ORDERABLES Final Result Performing Organization Address [facility] de Phone Number [facility] [address] [place] [address] * CULTURE STREP GROUP A (01/30/2025 2:50 PM CDT) Culture Negative for beta-hemolytic Streptococcus Group A TERRANCE 01/31/2025 10:13 PM CDT [facility] Microbiology ENTIRE ANTERIOR SURFACE OF NECK / Unknown Collection / Unknown 01/30/2025 2:50 PM CDT 01/30/2025 3:04 PM CDT Jayla Bettencourt PRODUCTION WEIGHER-COAGULATING DRYING SUPERVISOR LAB - MICROBIOLOGY ORDERABLES Final Result Performing Organization Address City/[facility]/ZIP Co de Phone Number [facility] [address] [place] [address], [facility] [phone] * (ABNORMAL) C-REACTIVE PROTEIN (01/30/2025 8:50 AM CDT) Pathologist [facility] C-Reactive Protein 1.74(H) <=0.50 mg/dL 01/30/2025 10:00 AM CDT [facility] Blood BLOOD SPECIMEN / Unknown Lab Venipuncture / Unknown 01/30/2025 8:50 AM CDT 01/30/2025 9:16 AM CDT Jayla Bettencourt [facility] LAB - CHEMISTRY OR DERABLES Final Result Performing Organization Address City/[facility]/ZIP Co de Phone Number [facility] [address] [place] [address] * (ABNORMAL) ERYTHROCYTE SEDIMENTATION RATE (01/30/2025 8:50 AM CDT) [facility] Erythrocyte Sedimentation Rate Automated 41(H) 0 - 30 MM/HR 01/30/2025 9:24 AM CDT [facility] Blood BLOOD SPECIMEN / Unknown Lab Venipuncture / Unknown 01/30/2025 8:50 AM CDT 01/30/2025 9:16 AM CDT Jayla Bettencourt [facility] LAB - HEMATOLOGY O RDERABLES Final Result Performing Organization Address City/[facility] Co de Phone Number [facility] [address] [place] [address] * XR Chest 1Vw Portable (01/30/2025 2:21 [...] - 4.940 uIU/mL 01/30/2025 2:26 AM CDT [facility] Blood BLOOD SPECIMEN / Unknown Venipuncture / Unknown 01/30/2025 1:50 AM CDT 01/30/2025 1:50 AM CDT Patsy Hill MD LAB - CHEMISTRY ORDERABLES Fin al Result [facility] [address] [place] [address] * NM MYOCARD PERF REST STRESS (01/06/2025 11:21 AM CDT) Anatomical Region Laterality Modality Chest Nuclear Medicine 01/06/2025 9:22 AM CDT Narrative Procedure Note Genaro Uribe MD - 01/06/2025 [place] [address] Nuclear Myocardial Perfusion Scan Report Pat.Name: MOHSEN MARQUES Pat.ID: [id number] .Date: 01/06/2025 Refer.MD: Mike Bhandari Exam Time: 9:22:00 AM Study Type:Nuclear Myocardial Perfusion Scan Age: 2 1955,69Y Sex: FEMALE Race: [facility] Visit ID: [id number] ++++++++++++++++++++++++++++++++++++ SUMMARY: ++++++++++++++++++++++++++++++++++++ FINDINGS: Myocardial perfusion imaging [...] Signed 01/06/2025 01:54 PM Genaro Uribe MD, [facility] Mike Bhandari MD NM ORDERABLES Edited * [...] 7:00 AM Patient Status: I/P Study Site: [facility] Primary Location: [facility] EStudy Info Exam Type: STRESS TEST Indications [...] 7:00 AM Patient Status: I/P Study Site: [facility] Primary Location: [facility] EStudy Info Exam Type: STRESS TEST [...] by Genaro Uribe on 01/06/2025 03:40 PM Mike Bhandari MD [facility] Final Result * CT Chest Wo Contrast (01/03/2025 8:41 [...] detected Not detected 01/03/2025 1:17 PM CDT [facility] Coronavirus 229E PCR Not detected Not detected 01/03/2025 1:17 PM CDT [facility] Coronavirus HKU1 PCR Not detected Not detected 01/03/2025 1:17 PM CDT [facility] Coronavirus NL63 PCR Not detected Not detected 01/03/2025 1:17 PM CDT [facility] Coronavirus OC43 PCR Not detected Not detected 01/03/2025 1:17 PM CDT [facility] COVID-19 PCR Not detected Not detected 01/03/2025 1:17 PM CDT [facility] Human Metapneumovirus PCR Not detected Not detected 01/03/2025 1:17 PM CDT [facility] Human Rhinovirus/Enterov irus PCR Not detected Not detected 01/03/2025 1:17 PM CDT [facility] Influenza A PCR Not detected Not detected 01/03/2025 1:17 PM CDT [facility] Influenza B PCR Not detected Not detected 01/03/2025 1:17 PM CDT [facility] Parainfluenza Virus 1 PCR Not detected Not detected 01/03/2025 1:17 PM CDT [facility] Parainfluenza Virus 2 PCR Not detected Not detected 01/03/2025 1:17 PM CDT [facility] Parainfluenza Virus 3 PCR Not detected Not detected 01/03/2025 1:17 PM CDT [facility] Parainfluenza Virus 4 PCR Not detected Not detected 01/03/2025 1:17 PM CDT [facility] Respiratory Syncytial Virus PCR Not detected Not detected 01/03/2025 1:17 PM CDT [facility] Bordetella parapertussis PCR Not detected Not detected 01/03/2025 1:17 PM CDT [facility] Bordetella pertussis PCR Not detected Not detected 01/03/2025 1:17 PM CDT [facility] Chlamydia pneumoniae PCR Not detected Not detected 01/03/2025 1:17 PM CDT [facility] Mycoplasma pneumoniae PCR Not detected Not detected 01/03/2025 1:17 PM CDT [facility] Microbiology SPECIMEN FROM NASOPHARYNGEAL STRUCTURE / Unknown Collection / Unknown 01/03/2025 8:14 AM CDT 01/03/2025 8:30 AM CDT Narrative [facility] - 01/03/2025 1:17 PM CDT This nucleic amplification assay has received FDA authorization via the [place]. Mike Bhandari MD LAB - MICROBIOLOGY ORDERABLES Final Result [facility] [address] [place] [address], [facility] [phone] * PROCALCITONIN LEVEL (01/03/2025 2:31 AM CDT) Procalcitonin 0.05 <0.10 ng/mL 01/03/2025 9:00 AM CDT [facility] Blood BLOOD SPECIMEN / Unknown Lab Venipuncture / Unknown 01/03/2025 2:31 AM CDT 01/03/2025 4:20 AM CDT Narrative [facility] - 01/03/2025 9:00 AM CDT The [...] Change in Procalcitonin Calculator is available at [email or web address] If clinical picture has not improved and PCT remains high, reevaluate and consider treatment failure or other causes. Mike Bhandari MD LAB - CHEMISTRY ORDERABLES [facility] Result [facility] [address] [place] [address] * SARS-COV-2 (COVID-19) RAPID (01/02/2025 3:45 PM CDT) [facility] COVID-19 PCR Not detected Not detected 01/03/20 25 4:22 PM CDT [facility] Microbiology SPECIMEN FROM NASOPHARYNGEAL STRUCTURE / Unknown Collection / Unknown 01/02/2025 3:45 PM CDT 01/02/2025 3:51 PM CDT Narrative [facility] - 01/02/2025 4:22 PM CDT The Cepheid Xpert Xpress SARS-COV-2 has been [...] LAB - MICROBIOLOGY ORDERABLE S Final Result [facility] [address] [place] [address] * (ABNORMAL) HEMOGLOBIN A1C (01/02/2025 12:16 PM CDT) Hemoglobin A1c 9.3(H) <5.7 % 01/02/2025 7:02 PM CDT [facility] Estimated Average Glucose 220 mg/dL 01/02/2025 7:02 PM CDT [facility] Blood BLOOD SPECIMEN / Unknown Venipuncture / Unknown 01/02/2025 12:16 PM CDT 01/02/2025 12:17 PM CDT Narrative [facility] - 01/02/2025 7:02 PM CDT HbA1c [...] Glycohemoglobin Standardization Program (NGSP) certified method. Kimberley JEAN BAPTISTE LAB - CHEMISTRY ANGEL SPEARS Final Result Performing Organization Address [facility] Co de Phone Number [facility] [address] [place] [phone] * B-TYPE NATRIURETIC PEPTIDE (01/02/2025 12:16 PM CDT) [facility] BNP 46 <=100 pg/mL 01/02/2025 12:41 PM CDT [facility] Blood BLOOD SPECIMEN / Unknown Venipuncture / Unknown 01/02/2025 12:16 PM CDT 01/02/2025 12:[address] [facility] - 01/02/2025 12:41 PM CDT A [...] ORDERABLE S Final Result Performing Organization Address [facility] Co de Phone Number [facility] [address] [place] [address] * HEPATITIS C AB SCREEN RFLX NAAT QUANT (02/21/2023 6:30 PM CDT) [facility] Hepatitis C Antibody Non-react hugh Non-reac tive 02/21/2023 7:32 PM CDT [facility] Comment:Hepatitis C Antibody screen indicates [...] LAB - CHEMISTRY ORDERABLES Fi nal Result [place] [id number] [place] [address], [facility] [phone] from Last 3 Months or Most Recently Relevant to Health Maintenance Insurance [facility] MANAGED MEDICARE ADV [facility] MANAGED MEDICARE ADV [place] [id number] MEDICAID - [place] Advance Directives * Full Code (Latest Code Status on File) Date Activated Date Inactivated Comments 02/10/2025 11:08 PM 02/14/2025 5:20 PM * Full Code Date Activated Date Inactivated Comments 01/30/2025 5:32 AM 02/02/2025 3:34 PM * Full Code Date Activated Date Inactivated Comments 01/02/2025 6:39 PM 01/06/2025 7:37 PM * Full Code Date Activated Date Inactivated Comments 07/26/2023 11:42 PM 08/01/2023 6:01 PM * Full Code Date Activated Date Inactivated Comments 06/16/2023 8:11 PM 06/17/2023 2:06 PM Care Teams Wellness Program Manager Relationship Specialty Start Date End Date Justen Gale MD PCP - General 07/05/21
--- OUTSIDE RECORDS SUMMARY | 2025-02-25 03:50 | XMS_ITS | Encounter Summary ---
Author Organization [facility] Address [address] [place] [address] Phone Care Team Providers Care Software Technician Name Role Phone Justen Gale MD Primary Care Provider [phone] David Roberts APRN, SUPERVISOR [employer] Unavailable [phone] Annel Rod MD Unavailable Reason for Visit * Reason Onset Date Comments Advice Only 08/19/2024 Follow-up 08/19/2024 Encounter Details Date Type Department Care Team (Late st Contact Info) Description 08/19/2024 Telephone [facility] [address] [place] [address] Justen Gale MD [address] [address] Advice Only; Follow-up Social History Tobacco Use Types Packs/Day Years Used Date Smoking Tobacco: Never Smokeless Tobacco: Never Alcohol Use Standard Drinks/Week Comments No 0 (1 standard drink = 0.6 oz pur e alcohol) [facility] Utilities Answer Date Recorded In the past 12 months has [employer], gas, oil, or water company threatened [...] How often do you attend chur or alevism services? More than 4 times [...] visit * Telephone Encounter - Angelito Alegria, CHAIN BUILDER LOOM CONTROL, SUPERVISOR [employer] - 08/19/2024 9:04 AM CDT Forwarding * Telephone Encounter - Isaura Weiss RN - 08/19/2024 8:37 AM CDT Situation: Strep throat follow up Background: Patient contacting PCP office. Patient was seen in ED on 08/09 and 08/12 in [facility] (records in chart). Diagnosed with strep. Assessment: [...] CDT Symptom: Sore Throat Outcome: Transfer to paste maker queue Reason: Caller denied all higher acuity questions The caller accepted this outcome. Caller Denied: * Struggling for each breath (severe trouble breathing) * Can't swallow saliva (drooling) documented in this encounter Plan of Treatment Upcoming Encounters Date Type Department Care Team (Late st Contact Info) Description 03/19/2025 2:00 PM RAILWAY ENGINEER Office Visit [facility] - Endocrinology - [place] [address] [place] [address] Annel Rod MD [address] [address] 05/29/2025 1:30 PM RAILWAY ENGINEER Office Visit [facility] - Family [facility] [address] [place] [address] Justen Gale MD [address] [facility] [address] [place] [address] documented as of this encounter Visit Diagnoses Not on filedocumented in this encounter Additional Health Concerns Infection Onset Date Last Indicated Resolved Time Respiratory Rule-Out 11/18/2024 11/18/2024 025 7:18 AM CDT Assessment Noted Time PHQ-9 Depression Total Score: 0 08/02/19 25 1:09 PM CDT documented as of this encounter Care Teams Software Technician Relationship Specialty Start Date End Date Justen Gale MD [address] [address] PCP - General Family Medicine 10/17/17 David Roberts, CHAIN BUILDER LOOM CONTROL, SUPERVISOR [employer] [address] [place] [address] Nurse Practitioner Advanced Practice Nurse 01/31/22 Annel Rod MD [address] [address] Consulting Physician Endocrinology 07/01/22 documented as of this encounter
--- OUTSIDE RECORDS SUMMARY | 2025-02-25 03:50 | XMS_ITS | Clinical Summary ---
Author Organization [facility] Address [address] [place] [address] Phone Care Team Providers Care Business Programmer Name Role Phone Justen Gale MD Primary Care Provider [phone] Allergies Active Allergy Reactions Criticality Noted Date [...] Flex Sig/CT Colonography Q 5 years 2001 RSV VACCINE (60+ or ) (1 - Risk 50-74 years 1-dose series) 2006 ZOSTER VACCINE (1 of 2) 2006 LDL CHOLESTEROL ANNUAL 09/28/2018 09/28/2017 OSTEOPOROSIS SCREENING [...] - 6.0 % 09/29/2017 10:28 AM CDT [facility] EST. AVG GLUCOSE, A1C 186 mg/dL 09/29/2017 10:28 AM CDT [facility] [employer] [facility] Blood Venipuncture / Unknown 09/28/2017 8:41 PM CDT 09/28/2017 8:46 PM CDT Narrative [facility] - 09/29/2017 10:28 AM CDT HGB A1C INTERPRETATION NORMAL: <5.7% PRE-DIABETES: 5.7 - 6.4% DIABETES: 6.5% OR GREATER us Francisco Castaneda MD CHEMISTRY ORDERABLES Final Resul t [facility] [employer] [facility]# [id number] [address] [place] [address] * (ABNORMAL) LIPID PANEL (09/28/2017 8:41 PM CDT) CHOLESTEROL 174 <200 mg/dL 09/30/2017 2:45 AM CDT [facility] [employer] [facility] TRIGLYCERIDE 109 <150 mg/dL 09/30/2017 2:45 AM CDT [facility] [employer] [facility] HDL 45 40 - 59 mg/dL 09/30/2017 2:45 AM CDT [facility] [employer] [facility] LDL CALCULATED 107(H) <100 mg/dL 09/30/2017 2:45 AM CDT [facility] [employer] [facility] NON-HDL CHOLESTEROL 129 <130 mg/dL 09/30/2017 2:45 AM CDT [facility] [employer] [facility] Blood Venipuncture / Unknown 09/28/2017 8:41 PM CDT 09/28/2017 8:46 PM CDT Narrative [facility] - 09/30/2017 2:45 AM CDT TOTAL CHOLESTEROL [...] Castaneda MD CHEMISTRY ORDERABLES Final Resul t [facility] [employer] [facility] CLIA# [id number] [address] [place] [address] from Last 3 Months or Most Recently Relevant to Health Maintenance Insurance Advance Directives For more information, please contact: [phone] * Full Code (Latest Code Status on File) Date Activated Date Inactivated Comments 09/29/2017 7:45 AM 09/30/2017 9:14 PM * Full Code Date Activated Date Inactivated Comments 09/29/2017 1:25 AM 09/29/2017 7:45 AM Care Teams Business Programmer Relationship Specialty Start Date End Date Justen Gale MD [address] [facility] [address] [place] [id number] PCP - General Cardiovascular Disease 09/14/17
--- OUTSIDE RECORDS SUMMARY | 2025-02-25 03:50 | XMS_ITS | Clinical Summary ---
Author Organization [facility] Address [address] [place] [address] Phone Care Team Providers Care Flatlock Sewing Machine Operator Name Role Phone Justen Gale MD Primary Care Provider [phone] David Roberts APRN, ARMATURE WINDER AUTOMOTIVE Unavailable [phone] Annel Rod MD Unavailable Allergies Active Allergy [...] Each 1 Active OneTouch Delica Lancets 33G [facility] 1 Lancet by Does not apply route 4 times daily. 400 Lancet 3 1 Active naloxone HCl (Narcan) 4 MG/0.1ML Liquid 2 Active diphenhydrAMIN E (BENADRYL) 25 MG Capsule Take 25 mg by mouth every 6 hours as needed. Active Continuous Blood Gluc Sensor (FreeStyle Eileen 2 Sensor) [facility] APPLY 1 SENSOR AND WEAR FOR 14 DAYS TO CHECK BLOOD SUGAR 6 Each 1 4 Active albuterol 108 (90 Base) MCG/ACT Aerosol Solution take 2 Puffs by inhalation. 1 Active gabapentin (NEURONTIN) 300 MG Capsule Take 300 mg by mouth. 4 Active HYDROcodone-ac etaminophen (NORCO) 10-325 MG Tablet Take 1 Tablet by mouth. 4 Active Multiple Vitamins-Elliott als (WOMENS MULTI PO) Take by mouth. Activ e Calcium Citrate-Vitami n D (CALCIUM + D PO) Take by mouth. Activ e Continuous Glucose Sensor (FreeStyle Eileen 2 Sensor) Misc 1 Each by Does not apply route every 14 days. Change sensor every 14 days. E11.42, insulin dependent 6 Each 1 5 Active insulin glargine (Lantus SoloStar) 100 UNIT/ML Solution Pen-injector 50 Units by Subcutaneous route every morning. 45 mL 1 5 Active Insulin Pen Needle (BD Pen Needle Short Ultrafine) 31G X 8 MM Misc USE 6 TIMES A DAY DIRECTED 300 Pen Needle 3 5 Active furosemide (LASIX) 20 MG Tablet Take 20 mg by mouth daily. 5 Active amoxicillin-cl avulanate (AUGMENTIN) 875-125 MG Tablet Take 1 Tablet by mouth 2 times daily. 5 Active pantoprazole (PROTONIX) 40 MG Tablet Delayed Response Take 40 mg by mouth daily. Active spironolactone (ALDACTONE) 25 MG Tablet Take 25 mg by mouth daily. Active predniSONE (DELTASONE) 5 MG TabletIndicati ons:Polymyalgi a rheumatica Take 1.5 Tablets by mouth daily. 45 Tablet 5 Active ondansetron (Zofran) 4 MG Tablet Take 1 Tablet by mouth every 8 hours as needed for Nausea - 1st line. 15 Tablet 5 Active HumaLOG KwikPen 100 UNIT/ML Solution Pen-injector INJECT 36 UNITS UNDER SKIN BEFORE EACH MEAL.; ISF OF 1:15 OF IF>150MG/DL; MAX DAILY DOSE OF 120 UNITS 120 mL 1 5 Active Continuous Glucose Sensor (FreeStyle Eileen 2 Sensor) Misc 1 Each by Does not apply route every 14 days. 6 Each 1 5 Active methotrexate 2.5 MG Tablet Take 15 mg by mouth once a week 5 025 Active empagliflozin (JARDIANCE) 10 MG Tablet Take 10 mg by mouth daily. 5 Active aspirin 81 MG Chewable Tablet Take 81 mg by mouth daily. 5 Active atorvastatin (LIPITOR) 40 MG Tablet Take 40 mg by mouth nightly. 5 Active folic acid (FOLVITE) 1 MG Tablet Take 1 mg by mouth. 5 026 Active valsartan (DIOVAN) 80 MG Tablet Take 80 mg by mouth daily. Active oxybutynin (DITROPAN-XL) 10 MG TABLET SR 24 HRIndications: OAB (overactive bladder) Take 1 Tablet by mouth daily. 90 Tablet 1 5 Active rOPINIROLE (REQUIP) 5 MG Tablet Take 1 Tablet by mouth nightly. 90 Tablet 2 5 Active rOPINIROLE (REQUIP) 5 MG Tablet Take 1 Tablet by mouth nightly. 90 Tablet 2 5 025 Discontin ued(Reord er) oxybutynin (DITROPAN-XL) 10 MG TABLET SR 24 HRIndications: OAB (overactive bladder) TAKE 1 TABLET BY MOUTH DAILY 30 Tablet 1 5 025 Discontin ued(Reord er) Active Problems Problem Noted [...] Overview: Added automatically from request for surgery [id number] Lymphedema of left upper extremity 08/09/2016 Pulmonary embolism 08/09/2016 Overview (11/09/2017): Last Assessment & Plan: On Rivaroxaban Arthralgia of ankle 01/26/2015 Resolved Problems Problem Noted Date Diagnosed Date Resolved Date Cellulitis of breast 11/11/2014 025 Encounters Date Type Department Care Team Description 02/24/2025 [facility] [address] [place] [address] Justen Gale MD involuntary movement 02/24/2025 Telephone [facility] [address] [place] [address] Justen Gale MD Form Completion 02/14/2025 [facility] [place] [phone] Justen Gale MD Medication Renewal Reviewed 02/14/2025 MyChart RX Renewal [facility] [address] [place] [phone] Pili Elkins APRN, NETTA Medication Renewal Reviewed 02/08/2025 Nurse Triage [facility] Central Call Center [address] [place] [phone] Justen Gale MD Shortness of Breath; High Blood Sugar 01/29/2025 Nurse Triage [facility] [address] [place] [phone] Justen Gale MD Facial Swelling 01/23/2025 MyChart RX Renewal [facility] Endocrinology [facility] [address] [place] [phone] Annel Rod MD Medication Renewal Reviewed 01/18/2025 [facility] [place] [phone] Pili Elkins APRN, ARMATURE WINDER AUTOMOTIVE Medication Refill 01/08/2025 Nurse Triage [address] [phone] Justen Gale MD High Blood Sugar (Under Dr Rod, not Dr Gale) 01/08/2025 MyChart RX Renewal [facility] Endocrinology [facility] [address] [place] [phone] Annel Rod MD Medication Renewal Reviewed 12/30/2024 MyChart RX Renewal [facility] [address] [place] [phone] Justen Gale MD Medication Renewal Reviewed 12/30/2024 MyChart RX Renewal [facility] [address] [place] [phone] Pili Elkins APRN, NETTA Medication Renewal Reviewed 12/24/2024 Telephone [facility] Central Call Center [address] [place] [phone] Justen Gale MD Advice Only; Results 12/19/2024 Telephone [facility] Family Medicine [facility] [address] [place] [address] Justen Gale MD 12/18/2024 Telephone [facility] Call [facility] [address] [place] [phone] Justen Gale MD Results 12/17/2024 3:30 PM CDT Office Visit [facility] Endocr[facility] [address] [place] [phone] Annel Rod MD Type 2 diabetes mellitus [...] - 12/17/2024 11:59 PM CDT [facility] [address] [place] [address] Justen Gale MD Discharge Disposition: Discharged to home or Selfcare 12/17/2024 Travel 12/14/2024 Nurse Triage [facility] Center [address] [place] [phone] Justen Gale MD Nausea; Shortness of Breath; Dizziness; Generalized Weakness 12/14/2024 Telephone [facility] [address] [place] [phone] Justen Gale MD Advice Only 12/06/2024 Telephone [facility] [address] [place] [phone] Justen Gale MD Post-Hospital Follow-up 11/25/2024 10:00 AM CDT Office Visit [facility] [address] [place] [address] Pili Elkins, ZAMZAM, ARMATURE WINDER AUTOMOTIVE Acute diastolic congestive heart failure (HCC) (Primary Dx); Type 2 diabetes mellitus with diabetic polyneuropathy, with long-term current use of insulin (HCC); OAB (overactive bladder); Polymyalgia rheumatica (HCC) Discharge Disposition: Discharged to home or Selfcare 11/25/2024 Travel from Last 3 Months Immunizations Immunization Administration Dates Next Due Covid-19 Vaccine, Vector-nr, Rs-ad26, Pf, 0.5 Ml ([employer] Mobile) 06/29/2020 Influenza Vaccine greater than 3 yrs [...] drink = 0.6 oz pur e alcohol) [facility] Utilities Answer Date Recorded In the past 12 months has [employer], gas, oil, or water [employer] threatened to shut off services in your [...] Total Score - Questions 1-9 0 07/23 [facility] - [...] a long term (including now)? No 08/06/2024 AUDIT-C Answer Date [...] st Contact Info) Description 03/19/2025 2:00 PM GUEST HOUSE MANAGER Office Visit [facility] - [place] [address]2 [facility] [place] [phone] Annel Rod MD #2 [facility] [address] [place] [phone] 05/29/2025 1:30 PM GUEST HOUSE MANAGER Office Visit [facility] - Family Medicine - [place] [address] [place] [phone] Justen Gale MD #2 [facility] [address] [place] [address] Health Maintenance Due Date Last Done Comments Diabetes: Eye Exam 1956 Pneumococcal Immunization (50+ years) (1 of 2 - PCV) 1975 Zoster Immunization (1 of 2) 1975 Cologuard 2001 Respiratory Syncytial Virus (RSV) Immunization (Adult) (1 - Risk 50-74 years 1-dose series) 2006 Medicare Initial AWV G0438 08/22/2018 Immunochemical Fecal Occult Blood 09/08/2019 09/07/2018, 08/31/2018 Diabetes: Foot Exam 08/12/2020 08/13/2019, 08/07/2019, 06/18/2019, Additional history exists DEXA Bone Density 08/02/2024 08/02/2022, 11/10/2020 Influenza Immunization (#1) 12/23/202412/24, 01/17/2023, 01/03/2022, Additional history exists SARS-COV-2 Immunization (3 - 2024- season) 2024 05/04/2021, 06/29/2020 Colonoscopy 01/08/2025 01/09/2020, [...] XR - CHEST 11/27/2024 12:00 AM CDT CMP (COMPREHENSIVE METABOLIC PANEL) 11/18/2024 12:00 AM CDT HEMOGLOBIN, A1C 10/02/2023 12:00 AM CDT HM COLONOSCOPY Routine 01/09/2020 AMB REFERRAL TO PODIATRY Routine 08/13/2019 POCT STOOL, OCCULT BLOOD, DIAGNOSTIC Routine 09/07/2018 1:20 PM CDT Generalized abdominal pain from Last 3 Months or Most Recently Relevant to Health Maintenance Results * PAIN CONSULT (01/16/2025 12:00 AM CDT) 01/16/2025 us Justen Gale MD GENERIC SCAN [...] Patient dx with CHF in November this year. C/o sob x 1 month. [...] Baldomero Laboy D.O. AP: AP Report ID: [id number] Reading Location: [id number] Procedure Note Baldomero Laboy DO - 12/18/2024 [...] Baldomero Laboy D.O. AP: AP Report ID: [id number] Reading Location: [id number] IMPRESSION: No significant change in appearance of the chest when compared to the previous chest radiograph dated 12/11/2024. Justen Gale MD IMG DIAGNOSTIC ORDERABLES Fin al Result * XR - CHEST (11/27/2024 12:00 AM CDT) 11/27/2024 Provider Scan IMG DIAGNOSTIC ORDERABLES Final Result Performing Organization Address City/[facility]/ZIP Co de Phone Number SCAN * CMP (COMPREHENSIVE METABOLIC PANEL) (11/18/2024 12:00 AM CDT) 11/18/2024 Provider Scan CHEMISTRY ORDERABLES Final Resul t Performing Organization Address City/[facility] [address]/[facility] Co de Phone Number SCAN * HEMOGLOBIN, A1C (10/02/2023 12:00 AM CDT) HGB-A1C 7.8 SCAN 10/02/2023 Provider Scan CHEMISTRY ORDERABLES Final Resul t Performing Organization Address [facility] [address]/[facility] Co de Phone Number SCAN * HM COLONOSCOPY (01/09/2020) Genaro Jensen DO PROCEDURE/MINOR SURGICAL ORDERA BLES Final Result * AMB REFERRAL TO PODIATRY (08/13/2019) Alvarez Mensah MD OUTPATIENT REFERRALS Final Res ult * POCT STOOL, OCCULT BLOOD, DIAGNOSTIC (09/07/2018 1:20 PM CDT) OCCULT BLOOD, STOOL Negative Negative, Other POC HEMOCULT CONTROL Food Mixer Assembler Pass 09/07/2018 1:20 PM CDT Pili Elkins APRN, ARMATURE WINDER AUTOMOTIVE POINT OF CARE TEST ING (MANUAL) Final Result from Last 3 Months or Most Recently Relevant to Health Maintenance Insurance MEDICAID [place] MEDICARE C [facility] Care Teams Flatlock Sewing Machine Operator Relationship Specialty Start Date End Date Justen Gale MD #[address] [address] PCP - General Family Medicine 10/17/17 David Roberts APRN, NETTA [address] [place] [address] Nurse Practitioner Advanced Practice Nurse 01/31/22 Annel Rod MD [address] [place] [phone] Consulting Physician Endocrinology 07/01/22
--- OUTSIDE RECORDS SUMMARY | 2025-02-25 03:50 | XMS_ITS | Encounter Summary ---
Author Organization [facility] Address [address] [place] [address] Phone Care Team Providers Care Hot Worker Name Role Phone Justen Gale MD Primary Care Provider [phone] David Roberts APRN, PULL WORKER Unavailable [phone] Annel Rod MD Unavailable Reason for Visit * Reason Onset Date Comments Sore Throat 06/29/2020 Encounter Details Date Type Department Care Team (Late st Contact Info) Description 06/29/2020 Telephone [facility] [address] [place] [address] Justen Gale MD [address] [address] Sore Throat Social History Tobacco Use Types [...] COVID-19? No / Unsure 06/29/2020 8:43 AM SOFTWARE DEVELOPMENT PROJECT MANAGER documented as of this encounter Miscellaneous Notes * Telephone Encounter - Gail Lucero RN - 06/29/2020 3:53 PM CST Attempted to call mailbox is full. Pt does not need testing WARE DEVELOPMENT PROJECT MANAGER * Telephone Encounter - Vince Hermosillo MD - 06/29/2020 3:13 PM CST No covid testing needed. If the er thought that it was warranted then they would have done this. WARE DEVELOPMENT PROJECT MANAGER * Telephone Encounter - Marlys Sorensen RN - 06/29/2020 8:36 AM CST Patient calling. Patient is calling to schedule Hospital/ED/Prompt-Care follow up appointment. Hospital/ED/Prompt-Care Site: [facility] ED Records Requested: Yes Reason [...] f/up and yearly PAP appointments? Please advise. WARE DEVELOPMENT PROJECT MANAGER documented in this encounter Plan of Treatment Upcoming Encounters Date Type Department Care Team (Late st Contact Info) Description 03/19/2025 2:00 PM SOFTWARE DEVELOPMENT PROJECT MANAGER Office Visit [facility] - Endocrinology - [place] [address] [place] [address] Annel Rod MD #2 [facility] [address] [place] [address] 05/29/2025 1:30 PM SOFTWARE DEVELOPMENT PROJECT MANAGER Office Visit [facility] Medical [facility] - Family Medicine [facility] [address] [place] [address] Justen Gale MD #2 [facility] [address] [place] [address] documented as of this encounter Visit Diagnoses Not on filedocumented in this encounter Additional Health Concerns Infection Onset Date Last Indicated Resolved Time COVID - 19 08/01/2024 08/01/2024 08/01/2024 3:20 PM CDT Respiratory Rule-Out 11/18/2024 11/18/2024 025 7:18 AM CDT Assessment Noted Time PHQ-9 Depression Total Score: 0 09/08/19 19 1:00 PM CDT documented as of this encounter Care Teams Hot Worker Relationship Specialty Start Date End Date Justen Gale MD #2 [facility] [address] [place] [address] PCP - General Family Medicine 10/17/17 David Roberts, ARTIFICIAL LIMB MAKER, PULL WORKER [address] [place] [address] Nurse Practitioner Advanced Practice Nurse 01/31/22 Annel Rod MD #2 [facility] [address] [place] [address] Consulting Physician Endocrinology 07/01/22 documented as of this encounter
--- OUTSIDE RECORDS SUMMARY | 2025-02-25 03:50 | XMS_ITS | Encounter Summary ---
Author Organization [facility] Address [address] [place] [address] Phone Care Team Providers Care Medical Staff Specialist Name Role Phone Justen Gale MD Primary Care Provider David Roberts APRN, BEHAVIORAL HEALTH SPECIALIST Unavailable [phone] Annel Rod MD Unavailable Reason for Visit * Reason Onset Date Comments Medication Refill 08/06/2020 Encounter Details Date Type Department Care Team (Late st Contact Info) Description 08/06/2020 Refill [facility] [address] [place] [phone] Justen Gale MD #[address] [address] Medication Refill Social History Tobacco Use Types [...] Outpatient Visits 2 weeks ago [facility] P[facility] Mueller APN, BEHAVIORAL HEALTH SPECIALIST 2 months ago Increased urinary [facility] Pili Mueller APN, BEHAVIORAL HEALTH SPECIALIST 5 months ago Urinary frequency [facility] Pili Mueller APN, BEHAVIORAL HEALTH SPECIALIST 8 months ago Type 2 diabetes mellitus with diabetic polyneuropathy, with long- term current use of insulin (HCC) [facility] Pili Mueller APN, BEHAVIORAL HEALTH SPECIALIST 9 months ago [facility] Upcoming Appointments Future Appointments In 6 days Pili Elkins APN, BEHAVIORAL HEALTH SPECIALIST [facility] [place] CRITICAL CARE PHYSICIAN ASSISTANT - Recent and Past Visits Recent Visits Date Type Provider Dept 07/20/20 Office Visit Pili Elkins APN, NETTA [facility] 06/05/20 Office Visit Pili Elkins APN, NETTA [facility] 02/17/20 Office Visit Pili Elkins APN, NETTA [facility] 12/03/19 Office Visit Pili Elkins APN, NETTA [facility] 11/05/19 Telemedicine Justen Gale MD [facility] 07/25/19 Telemedicine [facility] visits within past 460 days with a meds authorizing provider and meeting all other requirements Future Appointments Date Type Provider Dept 08/12/20 Appointment Pili Elkins APN, NETTA [facility] Showing future appointments within next 90 days [...] st Contact Info) Description 03/19/2025 2:00 PM OIL FIELD WORKER Office Visit [facility] - Endocrinology - [place] [address] [place] [address] Annel Rod MD #[address] [place] [address] 05/29/2025 1:30 PM OIL FIELD WORKER Office Visit [facility] Medical [facility] - Family Medicine - [place] #[address] [facility] [place] [address] Justen Gale MD [address] [place] [address] [place] [address] documented as of this encounter Visit Diagnoses Not on filedocumented in this encounter Additional Health Concerns Infection Onset Date Last Indicated Resolved Time COVID - 19 08/01/2024 08/01/2024 08/01/2024 3:20 PM CDT Respiratory Rule-Out 11/18/2024 11/18/2024 025 7:18 AM CDT Assessment Noted Time PHQ-9 Depression Total Score: 0 07/21/19 21 3:00 PM CDT documented as of this encounter Care Teams Medical Staff Specialist Relationship Specialty Start Date End Date Justen Gale MD #[address] [address] PCP - General Family Medicine 10/17/17 David Roberts, MANAGER NIGHT, BEHAVIORAL HEALTH SPECIALIST [address] [place] [address] Nurse Practitioner Advanced Practice Nurse 01/31/22 Annel Rod MD #[address] [address] Consulting Physician Endocrinology 07/01/22 documented as of this encounter
--- OUTSIDE RECORDS SUMMARY | 2025-02-25 03:50 | XMS_ITS | Encounter Summary ---
Author Organization [facility] Address [address] [place] [address] Phone Care Team Providers Care Tutorial Laboratory Supervisor Name Role Phone Justen Gale MD Primary Care Provider David Roberts APRN, STATION TENDER Unavailable [phone] Annel Rod MD Unavailable Reason for Visit * Reason Comments Medication Refill Encounter Details Date Type Department Care Team (Late st Contact Info) Description 07/06/2023 Refill [facility] #2 [place] [phone] Justen Gale MD #[address] [address] Medication Refill Social History Tobacco Use Types [...] AM CDT Medication(s) refilled and signed per [facility] Chronic Medication Refill Standing Order for [...] Dept 06/27/23 Office Visit Justen Gale MD [facility] [place] 01/17/23 Office Visit Catrina Quiñonez MD [facility] Showing recent visits within past 270 [...] st Contact Info) Description 03/19/2025 2:00 PM SCRAPER TENDER Office Visit [facility] Medical [facility] - Endocrinology - [place] [address] [place] [address] Annel Rod MD #[address] [address] 05/29/2025 1:30 PM SCRAPER TENDER Office Visit [facility] - [facility] [address] [place] [address] Justen Gale MD #2 [facility] [address] [place] [address] documented as of this encounter Visit Diagnoses Not on filedocumented in this encounter Additional Health Concerns Infection Onset Date Last Indicated Resolved Time COVID - 19 08/01/2024 08/01/2024 08/01/2024 3:20 PM CDT Respiratory Rule-Out 11/18/2024 11/18/2024 025 7:18 AM CDT Assessment Noted Time PHQ-9 Depression Total Score: 8 01/18/20 23 2:24 PM CDT documented as of this encounter Care Teams Tutorial Laboratory Supervisor Relationship Specialty Start Date End Date Justen Gale MD [address] [place] [address] [address] PCP - General Family Medicine 10/17/17 David Roberts, ORACLE IAM CONSULTANT, STATION TENDER #[address] [place] [address] Nurse Practitioner Advanced Practice Nurse 01/31/22 Annel Rod MD #[address] [address] [address] Consulting Physician Endocrinology 07/01/22 documented as of this encounter
--- OUTSIDE RECORDS SUMMARY | 2025-02-25 03:50 | XMS_ITS | Encounter Summary ---
Author Organization [facility] Address [address] [place] [address] Phone Care Team Providers Care Parallel Computing Software Engineer Name Role Phone Justen Gale MD Primary Care Provider [phone] David Roberts APRN, ABRASIVE WORKER Unavailable [phone] Annel Rod MD Unavailable Reason for Visit * Reason Onset Date Comments Pain 09/23/2024 Encounter Details Date Type Department Care Team (Late st Contact Info) Description 09/23/2024 Telephone [facility] [address] [place] [phone] Justen Gale MD #[address] [address] Pain Social History Tobacco Use Types Packs/Day Years Used Date Smoking Tobacco: Never Smokeless Tobacco: Never Alcohol Use Standard Drinks/Week Comments No 0 (1 standard drink = 0.6 oz pur e alcohol) [facility] Utilities Answer Date Recorded [...] 07/23 [facility] - [...] in a alf (including now)? No 08/06/2024 Education Answer Date [...] - patient has RA Outcome: Transfer to broadcast engineer queue Reason: Caller denied all higher acuity questions The caller accepted this outcome. Caller Denied: * Chest pain * Headache * Eye pain * Abdominal pain * Genital pain documented in this encounter Plan of Treatment Upcoming Encounters Date Type Department Care Team (Late st Contact Info) Description 03/19/2025 2:00 PM SUPERVISOR KNITTING Office Visit [facility] - Endocrinology - [place] [address] [place] [address] Annel Rod MD #2 [facility] [address] [place] [address] 05/29/2025 1:30 PM SUPERVISOR KNITTING Office Visit [facility] - Family Medicine - [place] [address] [place] [address] Justen Gale MD #2 [facility] [address] [place] [address] documented as of this encounter Visit Diagnoses Not on filedocumented in this encounter Additional Health Concerns Infection Onset Date Last Indicated Resolved Time Respiratory Rule-Out 11/18/2024 11/18/2024 025 7:18 AM CDT Assessment Noted Time PHQ-9 Depression Total Score: 0 08/02/19 25 1:09 PM CDT documented as of this encounter Care Teams Parallel Computing Software Engineer Relationship Specialty Start Date End Date Justen Gale MD #2 [facility] [address] [place] [address] PCP - General Family Medicine 10/17/17 David Roberts APRN, NETTA [address] [place] [address] Nurse Practitioner Advanced Practice Nurse 01/31/22 Annel Rod MD #2 [facility] [address] [place] [phone] Consulting Physician Endocrinology 07/01/22 documented as of this encounter
--- OUTSIDE RECORDS SUMMARY | 2025-02-25 03:50 | XMS_ITS | Clinical Summary ---
Author Organization [facility] Address [facility] [place] [address] Care Team Providers Care Veneer Jointer Helper Name Role Phone Meena Bansal MD Unavailable [phone] Justen Gale MD Primary Care Provider [phone] Allergies Active Allergy Reactions Criticality Noted Date [...] 03/18/2018 Assessment & Plan (03/18/2018 2:55 AM IMPREGNATOR OPERATOR): Acute, patient reported as epigastric pain however may be atypical presentation. Troponins negative x2. Also in differential is GERD, PUD - Admit to observation -Follow-up troponins -Monitor vitals -N.p.o. at midnight - Stress echo in a.m. - Consider cardiology consult based on results of stress test -Begin Protonix Epigastric pain 03/18/2018 Assessment & Plan (03/18/2018 5:39 AM IMPREGNATOR OPERATOR): Acute, non radiating, worsens with lying [...] with long-term current use of insulin 11/06/2017 snf (current) use 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 inhibitors 10/23/2017 Lumbosacral [...] medications Assessment & Plan (03/18/2018 2:51 AM IMPREGNATOR OPERATOR): Chronic, BPs currently 127/78 - To [...] dinner. Assessment & Plan (03/18/2018 2:53 AM IMPREGNATOR OPERATOR): Chronic, patient reports medical compliance with 50 units of Lantus daily and 15 units of Humalog before meals. No recent HbA1c - Monitor POC glucose -[place] home regimen - Consider sliding scale insulin -Follow-up HbA1c Bronchitis 08/20/2017 LUL (obstructive sleep apnea) 08/01/2017 Assessment & Plan (03/18/2018 2:54 AM IMPREGNATOR OPERATOR): Chronic, on CPAP at home - Continue home CPAP History of DVT (deep vein thrombosis) 08/01/2017 Assessment & Plan (03/18/2018 2:54 AM IMPREGNATOR OPERATOR): Chronic - Continue home Xarelto Chest pressure 08/01/2017 Diet-controlled diabetes mellitus 08/01/2017 History of pulmonary embolism 08/01/2017 Hyponatremia 08/01/2017 Positive blood culture 08/01/2017 Acute pharyngitis 07/27/2017 Generalized weakness 07/27/2017 Nausea and vomiting 07/26/2017 Overview (09/05/2020): Overview: Overview: Added automatically from request for surgery [id number] Overview: Added automatically from request for surgery [id number] Added automatically from request for surgery [id number] Neuropathy 07/05/2017 History of breast cancer 02/06/2017 [...] syndrome Assessment & Plan (03/18/2018 2:54 AM IMPREGNATOR OPERATOR): Chronic -Continue home ropinirole Pain of [...] Sexual Orientation Straight 03/18/2018 3: 01 AM IMPREGNATOR OPERATOR Last Filed Vital Signs Vital Sign [...] Final Result [facility] [address] [place] [address], * LIPID PANEL (10/14/2023 3:40 AM CDT) [...] 118 <130 MG/DL 10/13 4:31 AM CDT [facility] CHOL/HDL RATIO 3.6 0.0 - 4.5 10/14/2023 4:31 AM CDT [facility] VLDL CALCULATION 23 [...] CDT Peggy Bland MD LABORATORY Final Result [facility] [address] [place] [address], [place] [phone] from Last 3 Months or Most Recently Relevant to Health Maintenance Insurance [facility] MEDICAID MEDICAID [facility] MEDICARE Advance Directives * Full Code (Latest [...] 2:42 AM 03/18/2018 4:50 PM Care Teams Veneer Jointer Helper Relationship Specialty Start Date End Date Justen Gale MD [address] [address] PCP - General FAMILY PRACTICE 08/20/17 Meena Bansal MD [address] [address] José Luis Stem Dryer Maintainer CARDIOVASCULAR DISEASE 04/24/16
--- OUTSIDE RECORDS SUMMARY | 2025-02-25 03:50 | XMS_ITS | Encounter Summary ---
Author Organization [facility] Address [address] [place] [address] Care Team Providers Care Clerk Telegraph Service Name Role Phone Liu Jerez MD Unavailable Albert Corbin MD Unavailable Justen Gale MD Primary Care Provider [phone] Khris Arthur MD Unavailable [phone] Ko Melendez MD Unavailable John Paul Moyer MD Unavailable Annel Rod MD Unavailable Anali MARSHALL MD, Carlos M. Unavailable Encounter Details Date Type Department Care Team (Late st Contact Info) Description 12/17/2024 [facility] Subsequent Outreach [facility] [address] [place] [address] Madelyn Cruz, VOLTAGE REGULATOR ASSEMBLER [address] [place] [address] Social History Tobacco Use Types Packs/Day [...] a nursing home (including now)? No 12/03/2024 [facility] Utilities Answer Date Recorded [...] on file Legal Sex Female 12:24 AM SCALP TREATMENT OPERATOR Gender Identity Not on file Sexual Orientation Not on file documented as of this encounter Plan of Treatment Not on file documented as of this encounter Visit Diagnoses Not on filedocumented in this encounter Care Teams Clerk Telegraph Service Relationship Specialty Start Date End Date Justen Gale MD 2 [facility] [address] [place] [address] PCP - General 10/09/17 Liu Jerez MD Consulting Physician Gastroenterology 07/28/17 [place] [address] [facility] [address] [place] [address] Consulting Physician Pulmonary Disease 08/03/17 Khris Arthur MD [address] [facility] [address] [place] [address] Medical Oncologist/Maintenance Analyst Medical Oncology 10/23/17 [place] [address] [address] [facility] [address] [place] [address] Surgeon Orthopedic Surgery 10/23/17 [place] [address] [address] Consulting Physician Pain Management 10/23/17 [place] [address] [facility] [address] [place] [address] Referring Physician General Surgery 01/26/18 [place] [address] [facility] [address] [place] [address] Consulting Physician Neurology 01/26/18 documented as of this encounter
--- OUTSIDE RECORDS SUMMARY | 2025-02-25 03:50 | XMS_ITS | Encounter Summary ---
Author Organization [facility] Address [address] [place] [address] Phone Care Team Providers Care Power Equipment Technology Instructor Name Role Phone Liu Jerez MD Unavailable Albert Corbin MD Unavailable Justen Gale MD Primary Care Provider Khris Arthur MD Unavailable [phone] Ko Melendez MD Unavailable John Paul Moyer MD Unavailable [phone] Annel Rod MD Unavailable Anali MARSHALL MD, Carlos M. Unavailable [phone] Encounter Details Date Type Department Care Team [...] Legal Sex Female 12:24 AM DIRECTOR OF ACCREDITATION Gender Identity Not on file Sexual Orientation [...] 02/10/2022 02/10/2022 06/10/2022 3:05 AM DIRECTOR OF ACCREDITATION Exposure, COVID-19 Comment:Added automatically based on COVID19 lab answers indicating exposure risk 02/11/2022 02/11/2022 02/15/2022 9:06 AM C DT COVID: Suspected 05/14/2022 05/14/2022 05/14/2022 10:41 AM DIRECTOR OF ACCREDITATION COVID: Suspected 06/07/2022 06/07/2022 06/07/2022 12:28 PM DIRECTOR OF ACCREDITATION COVID: Suspected 06/21/2022 06/21/2022 06/21/2022 2:12 AM DIRECTOR OF ACCREDITATION COVID: Suspected 10/05/2022 10/05/2022 10/05/2022 7:40 PM CDT COVID: Suspected 01/04/2024 01/04/2024 01/04/2024 10:30 PM CDT COVID: Suspected 02/14/2024 02/14/2024 02/15/2024 12:36 AM CDT COVID: Suspected 07/01/2024 07/01/2024 07/01/2024 2:53 PM CDT COVID: Suspected 07/01/2024 07/01/2024 07/02/2024 3:05 AM CDT COVID: Suspected 12/08/2024 12/08/2024 12/08/2024 1:50 AM CDT documented as of this encounter Care Teams Power Equipment Technology Instructor Relationship Specialty Start Date End Date Justen Gale MD [address] [address] PCP - General 10/09/17 Liu Jerez MD Consulting Physician Gastroenterology 07/28/17 [place] [address] [address] [facility] [address] [place] [address] Consulting Physician Pulmonary Disease 08/03/17 Khris Arthur MD [address] [facility] [address] [place] [address] Medical Oncologist/Propeller Driven Airplane Mechanic Medical Oncology 10/23/17 [place] [address] [address] [facility] [address] [place] [address] Surgeon Orthopedic Surgery 10/23/17 [place] [address] [address] [facility] [address] [place] [address] Consulting Physician Pain Management 10/23/17 [place] [address] [address] [facility] [address] [place] [address] Referring Physician General Surgery 01/26/18 [place] [address] [address] [facility] [address] [place] [address] Consulting Physician Neurology 01/26/18 documented as of this encounter
--- OUTSIDE RECORDS SUMMARY | 2025-02-25 03:50 | XMS_ITS | Encounter Summary ---
Author Organization [facility] Address [address] [place] [address] Phone Care Team Providers Care Electric Meter Technician Name Role Phone Justen Gale MD Primary Care Provider [phone] David Roberts APRN, FIREWORKS MAKER Unavailable [phone] Annel Rod MD Unavailable Reason for Visit * Reason Comments Medication Refill Encounter Details Date Type Department Care Team (Late st Contact Info) Description 08/07/2023 [facility]ill [facility] - Endocrin[facility] [address] [place] [address] Annel Rod MD #[address] [address] Medication Refill Social History [...] AM CDT Medication(s) refilled and signed per [facility] Chronic Medication Refill Standing Order for Pediatric and Adult Patients. documented in this encounter Plan of Treatment Upcoming Encounters Date Type Department Care Team (Late st Contact Info) Description 03/19/2025 2:00 PM LABOR RELATIONS CONSULTANT Office Visit [facility] - Endocrinology - [place] [address] [place] [address] Annel Rod MD #[address] [address] 05/29/2025 1:30 PM LABOR RELATIONS CONSULTANT Office Visit [facility] - Family Medicine [facility] #[address] [place] [address] Justen Gale MD #[address] [address] documented as of this encounter Visit Diagnoses Not on filedocumented in this encounter Additional Health Concerns Infection Onset Date Last Indicated Resolved Time COVID - 19 08/01/2024 08/01/2024 08/01/2024 3:20 PM CDT Respiratory Rule-Out 11/18/2024 11/18/2024 025 7:18 AM CDT Assessment Noted Time PHQ-9 Depression Total Score: 8 01/18/20 23 2:24 PM CDT documented as of this encounter Care Teams Electric Meter Technician Relationship Specialty Start Date End Date Justen Gale MD #2 [facility] [address] [place] [address] PCP - General Family Medicine 10/17/17 David Roberts APRN, FIREWORKS MAKER [address] [place] [address] Nurse Practitioner Advanced Practice Nurse 01/31/22 Annel Rod MD #[address] [address] Consulting Physician Endocrinology 07/01/22 documented as of this encounter
--- OUTSIDE RECORDS SUMMARY | 2025-02-25 03:50 | XMS_ITS | Clinical Summary ---
Author Organization [facility] Address [address] [place] [id number] Care Team Providers Care Alpine Patroller Name Role Phone Liu Jerez MD Unavailable Albert Corbin MD Unavailable [phone] Justen Gale MD Primary Care Provider Khris Arthur MD Unavailable [phone] Ko Melendez MD Unavailable [phone] John Paul Moyer MD Unavailable Annel Rod [...] mouth daily 180 tablet 01/23/20 25 Active Active Problems Problem Noted Date Diagnosed Date Acute on chronic diastolic congestive heart fail ure 12/03/2024 Class 3 severe obesity due t o excess calories without serious comorbidity with body mass index (BMI) of 50.0 to 59.9 in adult 12/03/2024 Shortness of breath 12/02/2024 Urinary tract infection 05/22/2024 Assessment & Plan (05/26/2024 10:08 AM APPLICATION ASSISTANT): Presenting with urinary symptoms of right [...] 05/22/2024 Assessment & Plan (05/25/2024 7:52 AM APPLICATION ASSISTANT): Hx of breast cancer c/b DVT/bilateral [...] 05/22/2024 Assessment & Plan (05/22/2024 1:14 PM APPLICATION ASSISTANT): -long-standing chronic back pain -CT L [...] 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) 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 10/17/2019 [...] without long-term current use of insulin ([facility]) 10/23/2017 Assessment & Plan (10/23/2017 [...] 10/13/2017 Assessment & Plan (05/22/2024 12:29 PM APPLICATION ASSISTANT): -Hx stage II, ER positive, HER2 [...] 08/01/2017 Assessment & Plan (05/22/2024 12:33 PM APPLICATION ASSISTANT): -Hx LUL -Hospital provided CPAP ordered History of DVT (deep vein thrombosis) 08/01/2017 History of pulmonary embolism 08/01/2017 Generalized weakness 07/27/2017 Dyspnea 07/27/2017 Unintentional weight loss 07/27/2017 Acute cystitis without hematuria 07/27/2017 Nausea and vomiting 07/26/2017 Overview (07/28/2017): Added automatically from request for surgery [id number] Pulmonary embolism 08/09/2016 Assessment & Plan (10/23/2017 2:05 AM CDT): On Rivaroxaban Lymphedema of left upper extremity 08/09/2016 Assessment & Plan (05/25/2024 7:53 AM APPLICATION ASSISTANT): S/p L axillary lymph node dissection [...] syndrome Assessment & Plan (05/22/2024 11:18 AM APPLICATION ASSISTANT): -continue home Requip 5mg nightly Pain of lower extremity 03/12/2013 Overview (07/29/2016): Leg pain Essential hypertension Assessment & Plan (05/23/2024 10:42 AM APPLICATION ASSISTANT): -Chart history of HTN but not on meds -BP elevated on admission, likely some pain contributing -Monitor closely once pain under adequate control, discussed following up with PCP for this Chronic anticoagulation Restless leg syndrome 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 Type 2 diabetes mellitus without complication Assessment & Plan (05/24/2024 1:39 PM APPLICATION ASSISTANT): -Last Ha1c 8.4 in 2023, repeat [...] TCC Subsequent Outreach [facility] [address] [place] [phone] Janet Ba 01/08/2025 9:45 AM CDT Lab [facility] [address] [place] [address] Polymyalgia rheumatica syndrome; Vitamin D deficiency 01/08/2025 9:21 AM CDT - 01/08/2025 11:59 PM CDT Hospital Encounter [facility] [address] [place] [address] Polymyalgia rheumatica syndrome; Vitamin D deficiency Discharge Disposition: Discharge to home or self care 01/08/2025 8:30 AM CDT Office Visit [facility] Rheumatology [address] [facility] [address] 2[address] [place] [address] Karely Rosado MD Polymyalgia rheumatica syndrome (Primary Dx); Vitamin D deficiency 01/07/2025 3:00 PM CDT Infusion [facility] - Infusion [address] [facility] Floor 5 [place] [address] Malignant neoplasm of overlapping sites of left breast in female, estrogen receptor positive (HCC) (Primary Dx); Malignant neoplasm of upper-inner quadrant of left breast in female, estrogen receptor positive (HCC); Malignant neoplasm of upper-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, unspecified estrogen receptor status (HCC); USP (current) use 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 inhibitors; Bone disorder 01/07/2025 2:00 PM CDT Office Visit [facility] Oncology [address] [facility] Floor 8 [place] [phone] Khris Arthur MD Malignant neoplasm of upper-inner quadrant of left breast in female, estrogen receptor positive (HCC) (Primary Dx) 01/07/2025 1:00 PM CDT Clinical Support [facility] [place] - Lab Collection [address] [facility] Floor 5 [place] [address] Malignant neoplasm of upper-inner quadrant of left breast in female, estrogen receptor positive (HCC) 12/26/2024 TCC Subsequent Outreach [facility] [address] [place] [phone] Janet Ba 12/20/2024 Orders Only [facility] Cardiology [address] [place] [address] Laury Moore NP 12/18/2024 Telephone [facility] On[facility] [facility] Floor 8 [place] [phone] Eden Carney RN 12/17/2024 TCC Subsequent Outreach [facility] [address] [place] [phone] Madelyn Cruz NP 12/17/2024 TCC Subsequent Outreach [facility] [address] [place] [phone] Madison Chadwick, [facility] 12/11/2024 3:16 PM CDT - 12/11/2024 9:03 PM CDT Emergency [facility] Emergency Department [address] [place] [phone] Shortness of breath (Primary Dx); Generalized weakness Discharge Disposition: Discharge to home or self care 12/10/2024 TCC Subsequent Outreach [facility] [address] [place] [phone] Madison Chadwick, [facility] 12/07/2024 10:38 PM CDT - 12/08/2024 2:52 AM CDT Emergency [facility] Emergency Department [address] [place] [phone] Gil Diez DO Dehydration (Primary Dx) Discharge Disposition: Discharge to home or self care 12/06/2024 TCC Initial Outreach [facility] [address] [place] [phone] Yunier Hernandez, RN 12/03/2024 TCC Initial Eligibility Review [facility] [address] [place] [phone] Yunier Hernandez RN 12/02/2024 5:27 PM CDT - 12/05/2024 3:30 PM CDT Hospital Encounter [facility] [address] [place] [phone] Patrick Rice DO Medavaram, Atul, MD Saravanan, [...] week 05/24/2024 How often do you attend [facility] or rastafari services? More than 4 times [...] a senior care (including now)? No 12/03/2024 [facility] Utilities Answer Date Recorded In the past 12 months has th e electric, gas, oil, or water [employer] threatened to shut off services in your home? No 12/03/2024 Personal Safety Answer Date Recorded Have you ever been in or are you currently in a harmful physical or emotional relationship or is someone making you feel afraid or unsafe? Denies 12/11/2024 Comments No Sex and Gender Information Value Date Recorded Sex Assigned at Not on file Legal Sex Female 12:24 AM APPLICATION ASSISTANT Gender Identity Not on file Sexual [...] 2024 05/04/2021, 06/29/2020 Influenza Vaccine (#1) 2024 3, 01/03/2022, 05/04/2021, Additional history exists Hemoglobin A1C 07/02/2025 01/02/2025, 11/22, 05/22/2024, Additional history exists Lipid Panel 12/04/2025 12/04/2024, 04/25, 10/14/2023, Additional history exists Fall Risk Assessment 12/05/2025 12/05/2024 eGFR 01/07/2026 01/07/2025, 11/23, 12/07/2024, Additional history exists DTaP/Tdap/Td Vaccine (2 [...] ECG 12-LEAD STAT 12/02/2024 3:33 PM CDT DEXA AXIAL SKELETON BONE DENSITY [...] abs 0.07 0.00 - 0.10 K/cumm [facility] Lymphocyte abs 1.89 0.80 - 3.30 K/cumm [facility] Monocyte abs 1.06(H) 0.20 - 0.80 K/cumm [facility] Eosinophil abs 0.26 0.00 - 0.50 K/cumm [facility] Basophil abs 0.05 0.00 - 0.10 K/cumm [facility] Neutrophil pct 73.6 % [facility] Comment: Interpretive Data Percent cell count reference ranges are not reported, since discordance with absolute values may lead to misinterpretation of CBC data. Current Interpretive Data was last revised on 2017. Imm gran pct 0.6 % [facility] Comment: Interpretive Data Percent cell count reference ranges are not reported, since discordance with absolute values may lead to misinterpretation of CBC data. Current Interpretive Data was last revised on 2017. Lymphocyte pct 14.9 % [facility] Comment: Interpretive Data Percent cell count reference ranges are not reported, since discordance with absolute values may lead to misinterpretation of CBC data. Current Interpretive Data was last revised on 2017. Monocyte pct 8.4 % [facility] Comment: Interpretive Data Percent cell count reference ranges are not reported, since discordance with absolute values may lead to misinterpretation of CBC data. Current Interpretive Data was last revised on 2017. Eosinophil pct 2.1 % [facility] Comment: Interpretive [...] MD LAB BLOOD ORDERABLES Final R esult [facility] Department [place] [address] * MAGGIE ab eval w/reflex (01/08/2025 9:33 AM CDT) MAGGIE ab Negative Negative Comment: Interpretive Data Positive Screens will be reflexed to specific testing for Antibodies against the following antigens: Milena-1 Ab, TOOL CLERK Ab, Scl-70 Ab, Goel Ab, SS-A/Ro Ab, and SS- B/La Ab. Further testing for dsDNA, Centromere, or Ribosomal P antibodies is suggested in patient with a positive screen and negative specific antibodies. Current interpretive data was last revised on 2022. Blood 01/08/2025 9:33 AM CDT 01/08/2025 11:09 AM CDT Karely Rosado MD LAB BLOOD ORDERABLES Final R esult Performing Organization Address City/[facility]/ZIP Co de Phone Number [facility] Department [place] [address] * (ABNORMAL) CBC with auto differential (01/08/2025 9:33 AM CDT) [facility] WBC 12.66(H) 3.80 - 9.90 K/cumm Hgb 13.0 11.9 - 15.5 g/dL [facility] Hct 42.3 35.6 - 45.5 % [facility] Plt 325 150 - 400 K/cumm [facility] MPV 10.5 9.1 - 12.3 fL [facility] RBC 4.61 3.90 - 5.20 M/cumm [facility] MCV 91.8 81.3 - 96.4 fL [facility] MCH 28.2 27.1 - 33.3 pg [facility] MCHC 30.7(L) 32.3 - 35.7 g/dL [facility] RDW CV 13.6 11.1 - 14.9 % [facility] RDW SD 45.8 35.7 - 48.1 fL [facility] NRBC abs 0.00 0.00 - 0.01 K/cumm [facility] Blood 01/08/2025 9:33 AM CDT 01/08/2025 11:11 AM CDT Karely Rosado MD LAB BLOOD ORDERABLES Final R esult [facility] [place] [address] * Cyclic citrul peptide antibody, IgG (01/08/2025 9:33 AM CDT) [facility] CCP Ab <0.5 <=2.9 units/mL Comment: Interpretive data Negative: <3 units/mL Positive: > or equal to 3 units/mL Current interpretive data was last revised on 2016. Blood 01/08/2025 9:33 AM CDT 01/08/2025 11:11 AM CDT Karely Rosado MD LAB BLOOD ORDERABLES Final R esult Performing Organization Address City/[facility] Co de Phone Number [facility] [place] [place] [address] * Vitamin D 25 hydroxy (01/08/2025 9:33 AM CDT) [facility] Vitamin D 25-OH 41 30 - 80 ng/mL Blood 01/08/2025 9:33 AM CDT 01/08/2025 11:30 AM CDT Karely Rosado MD LAB BLOOD ORDERABLES Final R esult Performing Organization Address [facility] Co de Phone Number [facility] [place] [address] * Erythrocyte sedimentation rate (01/08/2025 9:33 AM CDT) [facility] Erythrocyte sedimentation rate 29 1 - 30 mm/hr Blood 01/08/2025 9:33 AM CDT 01/08/2025 11:11 AM CDT Karely Rosado MD LAB BLOOD ORDERABLES Final R esult Performing Organization Address [facility] Co de Phone Number [facility] [place] [address] * Rheumatoid factor (01/08/2025 9:33 AM CDT) [facility] Rheumatoid factor, quant <10.0 0.1 - 15.0 IUnits/mL Blood 01/08/2025 9:33 AM CDT 01/08/2025 11:30 AM CDT Karely Rosado MD LAB BLOOD ORDERABLES Final R esult Performing Organization Address [facility] de Phone Number [facility] [place] [address] * (ABNORMAL) CRP (acute phase) (01/08/2025 9:33 AM CDT) CRP 26.3(H) <=10.0 mg/L Blood 01/08/2025 9:33 AM CDT 01/08/2025 11:30 AM CDT Karely Rosado MD LAB BLOOD ORDERABLES Final R esult Performing Organization Address [facility] de Phone Number [facility] Department [place] [employer] [place] [address] * Creatine kinase (CK), total (01/08/2025 9:33 AM CDT) CK 105 30 - 200 Units/L Blood 01/08/2025 9:33 AM CDT 01/08/2025 11:30 AM CDT Karely Rosado MD LAB BLOOD ORDERABLES Final R esult Performing Organization Address [facility] Phone Number [facility] [place] [place] [address] * XR Hand Bilateral 3 or More [...] CDT 01/07/2025 12:45 PM CDT Darcy Goel NP LAB BLOOD ORDERABLES Final Result [facility] Department [place] [address] * Comprehensive metabolic panel (01/07/2025 12:42 PM CDT) Sodium 141 135 - 145 mmol/L Potassium, pl 3.9 3.3 - 4.9 mmol/L [facility] Chloride 103 97 - 110 mmol/L [facility] CO2 27 22 - 32 mmol/L [facility] Anion gap 11 2 - 15 mmol/L [facility] BUN 23 6 - 25 mg/dL [facility] Creatinine 0.83 0.60 - 1.10 mg/dL [facility] Glucose 183 70 - 199 mg/dL [facility] 10.0 8.5 - 10.3 mg/dL [facility] Bilirubin, total 0.6 0.1 - 1.2 mg/dL [facility] Protein, pl 8.2 6.5 - 8.5 g/dL [facility] Albumin 4.1 3.5 - 5.0 g/dL [facility] Alk phos 84 40 - 130 Units/L [facility] ALT 21 7 - 45 Units/L [facility] AST 26 10 - 45 Units/L [facility] Blood 01/07/2025 12:4 2 PM CDT 01/07/2025 12:45 PM CDT Darcy Goel BAR CATCHER LAB BLOOD ORDERABLES Final Result [facility] [place] [address] * Urinalysis reflex to microscopic and culture Urine (12/11/2024 7:55 PM CDT) Color, ur Yellow Yellow Comment:Testing performed by : [address] [address] Clarity, ur Clear Clear MARY JANE Comment:Testing performed by : [address] [address] Specific gravity, ur 1.018 1.003 - 1.030 MARY JANE Comment:Testing performed by : [address] [address] pH, urine 6.5 MARY JANE Comment: Interpretive Data U rine pH is affected by diet, medications, systemic acid-base disturbances, and renal tubular function. pH may affect urinary stone formation. For example, urine pH below 6.0 may help reduce the tendency for calcium phosphate stones and pH greater than 6.0 may reduce the tendency for uric acid stone formation. Source: [facility] [employer] Current Interpretive Data was last revised on 2017 Testing performed by: [address] [address] Protein, ur ql Negative Negative MARY JANE Comment:Testing performed by : [address] [address] Glucose, ur ql Negative Negative MARY JANE Comment:Testing performed by : [address] [address] Ketones, ur Negative Negative MARY JANE Comment:Testing performed by : [address] [address] Bilirubin, ur Negative Negative MARY JANE Comment:Testing performed by : [facility], [address] [place] [address]., [address] Blood, ur Negative Negative MARY JANE PHAM Comment:Testing performed by : [facility], [address] [place] [address], [place]., [address] Urobilinogen, ur <2.0 <2.0 mg/dL MARY JANE PHAM Comment:Testing performed by : [address], [place]., [address] Nitrite, ur Negative Negative MARY JANE Comment:Testing performed by : [address], [place]., [address] Leukocyte esterase, ur Negative Negative MARY JANE Comment:Testing performed by : [address] [address] UA reflex comment Reflex conditions for microscopic UA and culture not met. MARY JANE Comment:Testing performed by : [address] [address] Urine 12/11/2024 7:55 PM CDT 12/11/2024 7:58 PM CDT us Blaze Armenta NP LAB MICROBIOLOGY - GENERAL ORDER [place] Final Result MARY JANE [facility] Department [place] [address] * (ABNORMAL) Troponin T high-sensitivity 4-hour (12/11/2024 6:58 PM CDT) Trop T hs 24(H) <=14 ng/L Comment: Interpretive Data For further hscTnT resources including the diagnostic algorithm and an aid in interpretation, copy and paste this link: https://nrl.testcatalog.org/show/hsTrop Current Interpretive Data last revised 2020. Testing performed by: [address] [address] Trop T hs delta -2 ng/L MARY JANE PHAM Comment:Testing performed by : [address] [address] Trop T hs interp Insignificant MARY JANE PHAM Comment:Testing performed by : [address] [address] Blood 12/11/2024 6:58 PM CDT 12/11/2024 7:03 PM CDT Rosa Cruz PA LAB BLOOD ORDERABLES Final Resu lt Performing Organization Address [facility]/ZIP Co de Phone Number MARY JANE [address] [place] [place] [address] * POCT glucose (12/11/2024 6:05 PM CDT) Glucose, POC 132 70 - 199 mg/dL Comment:Testing performed by : [address] [address] Blood 12/11/2024 6:05 PM CDT 12/11/2024 6:05 PM CDT Notinfile Unknown LAB POCT ORDERABLES - DEVICE F inal Result Performing Organization Address [facility] de Phone Number [address] [address] * (ABNORMAL) Troponin T high-sensitivity 2-hour (12/11/2024 5:12 PM CDT) Trop T hs 23(H) <=14 ng/L Comment: Interpretive Data For further hscTnT resources including the diagnostic algorithm and an aid in interpretation, copy and paste this link: https://nrl.testcatalog.org/show/hsTrop Current Interpretive Data last revised 2020. Testing performed by: [address] [address] Trop T hs delta -3 ng/L MARY JANE PHAM Comment:Testing performed by : [address] [address] Trop T hs interp Insignificant MARY JANE Comment:Testing performed by : [address] [address] Blood 12/11/2024 5:12 PM CDT 12/11/2024 5:14 PM CDT us Rosa MCKEON LAB BLOOD ORDERABLES Final Resu lt Performing Organization Address [facility] Co de Phone Number MARY JANE [address] [place] [address] * POCT glucose (12/11/2024 3:29 PM CDT) [facility] Glucose, POC 141 70 - 199 mg/dL Comment:Testing performed by : [address] [address] Blood 12/11/2024 3:29 PM CDT 12/11/2024 3:29 PM CDT Notinfile Unknown LAB POCT ORDERABLES - DEVICE F inal Result Performing Organization Address [facility] de Phone Number MARY JANE [address] [address] * (ABNORMAL) Troponin T high-sensitivity series (baseline, 2hr, 4hr, 6hr) (12/11/2024 3:01 PM CDT) [facility] Trop T hs 26(H) <=14 ng/L Comment: Interpretive Data For further hscTnT resources including the diagnostic algorithm and an aid in interpretation, copy and paste this link: https://nrl.testcatalog.org/show/hsTrop Current Interpretive Data last revised 2020. Testing performed by: [facility], [address] [place] [address]., [address] Blood 12/11/2024 3:01 PM CDT 12/11/2024 3:12 PM CDT Rosa MCKEON LAB BLOOD ORDERABLES Final Resu lt Performing Organization Address [facility] Co de Phone Number MARY JANE [address] [place] [address] * eGFR (12/11/2024 3:01 PM CDT) eGFR [...] reviewed 2021. Testing performed by: [facility], [address] [place] [address]., [id number] Blood 12/11/2024 3:01 PM CDT 12/11/2024 3:12 PM CDT us Rosa MCKEON LAB BLOOD ORDERABLES Final Resu lt [facility] [address] [facility] Department [place] [address] * Pro B-type natriuretic peptide (12/11/2024 3:01 [...] Date: 2017. Testing performed by: [facility], [address] [place] [address]., [address] Blood 12/11/2024 3:01 PM CDT 12/11/2024 3:12 PM CDT us Rosa MCKEON LAB BLOOD ORDERABLES Final Resu lt [facility] [address] [facility] Department [place] [address] * Pro B-type natriuretic peptide [...] Revised Date: 2017. Testing performed by: [address] [address] Blood 12/11/2024 3:01 PM CDT 12/11/2024 3:12 PM CDT us Rosa MCKEON LAB BLOOD ORDERABLES Final Resu lt MARY JANE PHAM [address] [facility] Department [place] [address] * Comprehensive metabolic panel (12/11/2024 3:01 PM CDT) Sodium 138 135 - 145 mmol/L Comment:Testing performed by : [address] [address] Potassium, pl 4.1 3.3 - 4.9 mmol/L MARY JANE PHAM Comment:Testing performed by : [address] [address] Chloride 99 97 - 110 mmol/L MARY JANE PHAM Comment:Testing performed by : [address] [address] CO2 25 22 - 32 mmol/L MARY JANE PHAM Comment:Testing performed by : [address] [address] Anion gap 14 2 - 15 mmol/L [facility] Comment:Testing performed by : [address] [address] BUN 18 6 - 25 mg/dL [facility] Comment:Testing performed by : [address] [address] Creatinine 0.70 0.60 - 1.10 mg/dL [facility] Comment:Testing performed by : [address] [address] Glucose 179 70 - 199 mg/dL [facility] [...] last revised 2022. Testing performed by: [address] [address] Calcium 10.0 8.5 - 10.3 mg/dL [facility] Comment:Testing performed by : [address] [address] Bilirubin, total 0.6 0.1 - 1.2 mg/dL [facility] Comment:Testing performed by : [address] [address] Protein, pl 7.8 6.5 - 8.5 g/dL [facility] Comment:Testing performed by : [address] [address] Albumin 4.1 3.5 - 5.0 g/dL [facility] Comment:Testing performed by : [address] [address] Alk phos 81 40 - 130 Units/L [facility] Comment:Testing performed by : [address] [address] ALT 21 7 - 45 Units/L [facility] Comment:Testing performed by : [facility], [address] [place] [address]., [address] AST 21 10 - 45 Units/L MARY JANE Comment:Testing performed by : [facility], [address] [place] [address]., [address] Blood 12/11/2024 3:01 PM CDT 12/11/2024 3:12 PM CDT us Rosa MCKEON LAB BLOOD ORDERABLES Final Resu lt MARY JANE [address] [facility] [place] [address] * XR Chest 1 Vw [...] Olinda Bernal M.D. FT: FT Report ID: [id number] Reading Location: [id number] Procedure Note Olinda Wells MD - 12/11/2024 [...] Olinda Bernal M.D. FT: FT Report ID: [id number] Reading Location: [place] [address] Rosa MCKEON IMG XR PROCEDURES Final Result * (ABNORMAL) Differential, auto (12/11/2024 2:23 PM CDT) Neutrophil abs 7.54(H) 1.50 - 6.50 K/cumm Comment:Testing performed by : [address] [address] Imm gran abs 0.04 0.00 - 0.10 K/cumm MARY JANE Comment:Testing performed by : [address] [address] Lymphocyte abs 2.07 0.80 - 3.30 K/cumm MARY JANE Comment:Testing performed by : [address] [address] Monocyte abs 0.86(H) 0.20 - 0.80 K/cumm MARY JANE Comment:Testing performed by : [address] [address] Eosinophil abs 0.23 0.00 - 0.50 K/cumm MARY JANE Comment:Testing performed by : [address] [address] Basophil abs 0.05 0.00 - 0.10 K/cumm MARY JANE Comment:Testing performed by : [address] [place] [address] Neutrophil pct 69.8 % [facility] Comment: Interpretive Data Percent cell count reference ranges are not reported, since discordance with absolute values may lead to misinterpretation of CBC data. Current Interpretive Data was last revised on 2017. Testing performed by: [address] [address] Imm gran pct 0.4 % [facility] Comment: Interpretive Data Percent cell count reference ranges are not reported, since discordance with absolute values may lead to misinterpretation of CBC data. Current Interpretive Data was last revised on 2017. Testing performed by: [address] [address] Lymphocyte pct 19.2 % [facility] Comment: Interpretive Data Percent cell count reference ranges are not reported, since discordance with absolute values may lead to misinterpretation of CBC data. Current Interpretive Data was last revised on 2017. Testing performed by: [address] [address] Monocyte pct 8.0 % [facility] Comment: Interpretive Data Percent cell count reference ranges are not reported, since discordance with absolute values may lead to misinterpretation of CBC data. Current Interpretive Data was last revised on 2017. Testing performed by: [address] [address] Eosinophil pct 2.1 % [facility] Comment: Interpretive Data Percent cell count reference ranges are not reported, since discordance with absolute values may lead to misinterpretation of CBC data. Current Interpretive Data was last revised on 2017. Testing performed by: [address] [address] Basophil pct 0.5 % [facility] Comment: Interpretive Data Percent cell count reference ranges are not reported, since discordance with absolute values may lead to misinterpretation of CBC data. Current Interpretive Data was last revised on 2017. Testing performed by: [address] [address] Blood 12/11/2024 2:23 PM CDT 12/11/2024 2:25 PM CDT us Rosa MCKEON LAB BLOOD ORDERABLES Final Resu lt MARY JANE 29[address] [facility] [place] [address] * (ABNORMAL) CBC with auto differential (12/11/2024 2:23 PM CDT) WBC 10.79(H) 3.80 - 9.90 K/cumm Comment:Testing performed by : [address] [address] Hgb 13.3 11.9 - 15.5 g/dL MARY JANE Comment:Testing performed by : [address] [address] Hct 40.8 35.6 - 45.5 % MARY JANE Comment:Testing performed by : [address] [address] Plt 313 150 - 400 K/cumm MARY JANE Comment:Testing performed by : [address], [address] MPV 9.8 9.1 - 12.3 fL MARY JANE Comment:Testing performed by : [address], [address] RBC 4.64 3.90 - 5.20 M/cumm MARY JANE PHAM Comment:Testing performed by : [address] [address] MCV 87.9 81.3 - 96.4 fL MARY JANE Comment:Testing performed by : [address] [address] MCH 28.7 27.1 - 33.3 pg MARY JANE Comment:Testing performed by : [address], [address] MCHC 32.6 32.3 - 35.7 g/dL MARY JANE Comment:Testing performed by : [address], [address] RDW CV 13.2 11.1 - 14.9 % MARY JANE Comment:Testing performed by : [address], [address] RDW SD 42.5 35.7 - 48.1 fL MARY JANE PHAM Comment:Testing performed by : [facility], [address] [place] [address]., [address] NRBC abs 0.00 0.00 - 0.01 K/cumm MARY JANE PHAM Comment:Testing performed by : [facility], [address] [place] [address]., [address] Blood Venous blood specimen / Unknown 12/11/2024 2:23 PM CDT 12/11/2024 2:25 PM CDT Rosa MCKEON LAB BLOOD ORDERABLES Final Resu lt MARY JANE [address] [facility] [place] [address] * ECG 12 lead (12/11/2024 2:12 PM CDT) Pathologist [facility] [place] Ventricular Rate EKG/Min 85 BPM [facility] Atrial Rate 85 BPM [facility] AL-Interval (MSEC) 106 ms [facility] QRS-Interval (MSEC) 82 ms [facility] QT-Interval (MSEC) 352 ms [facility] QTc 418 ms [facility] P [place] -12 degrees [facility] R [place] 8 degrees [facility] T [place] 27 degrees [facility] Diagnosis Sinus rhythm with short AL Otherwise normal ECG When compared with ECG of 07-DEC-2024 22:32, Previous ECG has undetermined rhythm, needs review Confirmed by SAGAR DELEON M.D. ([id number]) on 12/11/2024 4:50:58 PM [facility] 12/11/2024 2:12 PM CDT 12/11/2024 4:50 PM CDT Rosa MCKEON ECG ORDERABLES Final Result [facility] * POCT glucose (12/08/2024 1:54 AM CDT) Glucose, POC 112 70 - 199 mg/dL Comment:Testing performed by : [address] [address] Glucose comment 1 RN/MD Notified MARY JANE PHAM Comment:Testing performed by : [address] [address] Blood 12/08/2024 1:54 AM CDT 12/08/2024 1:54 AM CDT Gil Diez DO LAB POCT ORDERABLES - DEVIC E Final Result MARY JANE [address] [facility] [place], [place] [id number] * (ABNORMAL) Urinalysis reflex to microscopic and culture Urine (12/08/2024 1:50 AM CDT) Color, ur Yellow Yellow Comment:Testing performed by : [address] [address] Clarity, ur Clear Clear MARY JANE PHAM Comment:Testing performed by : [address] [address] Specific gravity, ur 1.020 1.003 - 1.030 MARY JANE Comment:Testing performed by : [address] [address] pH, urine 5.5 MARY JANE Comment: Interpretive Data U rine pH is affected by diet, medications, systemic acid-base disturbances, and renal tubular function. pH may affect urinary stone formation. For example, urine pH below 6.0 may help reduce the tendency for calcium phosphate stones and pH greater than 6.0 may reduce the tendency for uric acid stone formation. Source: [facility] [employer] Current Interpretive Data was last revised on 2017 Testing performed by: [address] [address] Protein, ur ql Negative Negative MARY JANE PHAM Comment:Testing performed by : [address] [address] Glucose, ur ql Negative Negative MARY JANE PHAM Comment:Testing performed by : [address] [address] Ketones, ur Negative Negative MARY JANE PHAM Comment:Testing performed by : [facility], [address] [place] [address], [place]., [address] Bilirubin, ur Negative Negative MARY JANE PHAM Comment:Testing performed by : [address], [place]., [address] Blood, ur Trace(A) Negative MARY JANE PHAM Comment:Testing performed by : [address], [place]., [address] Urobilinogen, ur <2.0 <2.0 mg/dL MARY JANE Comment:Testing performed by : [address], [place]., [address] Nitrite, ur Negative Negative MARY JANE Comment:Testing performed by : [address], [place]., [address] Leukocyte esterase, ur Negative Negative MARY JANE Comment:Testing performed by : [address], [place]., [address] UA reflex comment Reflex to microscopic UA will be performed. MARY JANE PHAM Comment:Testing performed by : [address], [place]., [address] Urine 12/08/2024 1:50 AM CDT 12/08/2024 1:53 AM CDT Gil Diez DO LAB MICROBIOLOGY - GENERAL ORDERABLES Final Result MARY JANE [address] [facility] [place] [address] * (ABNORMAL) Urinalysis, microscopic only (12/08/2024 1:50 AM CDT) WBC, ur 0-5 0 - 5 /HPF Comment:Testing performed by : [address], [place]., [address] RBC, ur 0-2 0 - 2 /HPF MARY JANE PHAM Comment:Testing performed by : [address] [address] Epithelial cells, squamous, ur 6-10(A) 0 - 5 /HPF MARY JANE PHAM Comment:Testing performed by : [address], [place]., [address] Mucous, ur Present(A) MARY JANE Comment:Testing performed by : [address] [address] Culture Reflex Comment Reflex conditions for urine culture (WBC >10) not met. MARY JANE Comment:Testing performed by : [address] [address] Urine 12/08/2024 1:50 AM CDT 12/08/2024 1:53 AM CDT Gil Diez DO LAB URINE ORDERABLES Final Result Performing Organization Address [facility] Co de Phone Number [address] [address] * (ABNORMAL) Troponin T high-sensitivity (12/08/2024 1:17 AM CDT) Pathologist [facility] [place] Trop T hs 28(H) <=14 ng/L Comment: Interpretive Data For further hscTnT resources including the diagnostic algorithm and an aid in interpretation, copy and paste this link: https://nrl.testcatalog.org/show/hsTrop Current Interpretive Data last revised 2020. Testing performed by: [address] [address] Blood 12/08/2024 1:17 AM CDT 12/08/2024 1:20 AM CDT Gil Diez DO LAB BLOOD ORDERABLES Final Result Performing Organization Address [facility] Co de Phone Number [address] [address] * Influenza A/B, RSV, and COVID-19 PCR Nasopharyngeal (12/08/2024 1:05 AM CDT) [facility] COVID-19 RNA Negative Negative Comment:Testing performed by : [address] [address] Influenza A RNA Negative Negative MARY JANE Comment:Testing performed by : [address] [address] Influenza B RNA Negative Negative MARY JANE Comment:Testing performed by : [facility], [address] [place] [address]., [address] RSV RNA Negative Negative MARY JANE Comment: Interpretive data: Testing performed by [facility]. This test is performed using the [employer] Xpert Xpress CoV-2/Flu/RSV plus assay. This is a multiplex, real-time reverse transcriptase PCR assay intended for the qualitative detection of nucleic acid from SARS-CoV-2, influenza A, influenza B, and respiratory syncytial virus. This assay has been cleared by the [place] Food and Drug administration. The performance characteristics have been verified by the [facility]. Results must be considered in the clinical context, and a negative result does not rule out infection. Interpretive Data last revised 2023 Testing performed by: [address] [address] Nasopharyngeal 12/08/2024 1: 05 AM CDT 12/08/2024 1:10 AM CDT Narrative MARY JANE - 12/08/2024 1:49 AM CDT Is the Patient experiencing symptoms consistent with COVID?->Yes Gil Diez DO LAB MICROBIOLOGY - GENERAL ORDERABLES Final Result MARY JANE [address] [facility] [place] [address] * CT Chest WO Contrast (12/08/2024 1:04 [...] Juve Gallegos M.D. AR: VALERY Report ID: [id number] Reading Location: [place] [address] Procedure Note Juve Gallegos MD - 12/08/2024 [...] Juve Gallegos M.D. AR: VALERY Report ID: [id number] Reading Location: [place] [address] Gil Diez DO IMG CT PROCEDURES Final Res ult * POCT glucose (12/08/2024 12:32 AM CDT) Glucose, POC 92 70 - 199 mg/dL Comment:Testing performed by : [address] [address] Blood 12/08/2024 12:3 2 AM CDT 12/08/2024 12:32 AM CDT Gil Diez DO LAB POCT ORDERABLES - DEVIC E Final Result MARY JANE [address] [facility] [place], [place] [id number] * POCT glucose (12/08/2024 12:15 AM CDT) Glucose, POC 88 70 - 199 mg/dL Comment:Testing performed by : [address] [address] Glucose comment 1 RN/MD Notified MARY JANE Comment:Testing performed by : [address] [address] Blood 12/08/2024 12:1 5 AM CDT 12/08/2024 12:15 AM CDT Gil Diez DO LAB POCT ORDERABLES - DEVIC E Final Result Performing Organization Address [facility] Co de Phone Number MARY JANE [address] [address] * POCT glucose (12/07/2024 11:58 PM CDT) [facility] Glucose, POC 80 70 - 199 mg/dL Comment:Testing performed by : [address] [address] Glucose comment 1 RN/MD Notified MARY JANE Comment:Testing performed by : [facility], [address] [place] [address], [address] Glucose comment 2 Will Repeat Test MARY JANE Comment:Testing performed by : [address] [address] Blood 12/07/2024 11:5 8 PM CDT 12/07/2024 11:58 PM CDT Gil Diez DO LAB POCT ORDERABLES - DEVIC E Final Result Performing Organization Address [facility] de Phone Number [address] [address] * (ABNORMAL) POCT glucose (12/07/2024 11:42 PM CDT) [facility] Glucose, POC 67(L) 70 - 199 mg/dL Comment:Testing performed by : [address] [address] Glucose comment 1 RN/ Notified MARY JANE Comment:Testing performed by : [address] [address] Blood 12/07/2024 11:4 2 PM CDT 12/07/2024 11:42 PM CDT Gil Diez DO LAB POCT ORDERABLES - DEVIC E Final Result Performing Organization Address [facility] Co de Phone Number [address] [address] * CT Head WO Contrast (12/07/2024 11:26 [...] 12/07/2024 11:53 PM - Electronically signed by Ptarick Zhou M.D. KH: KATH Report ID: [id number] Reading Location: [place] [address] Procedure Note Patrick Zhou MD - 12/07/2024 [...] Patrick Zhou M.D. KH: KATH Report ID: [id number] Reading Location: [place] [address] Gil Diez DO IMG CT PROCEDURES Final Res ult * POCT glucose (12/07/2024 11:08 PM CDT) Glucose, POC 75 70 - 199 mg/dL Comment:Testing performed by : [address] [address] Blood 12/07/2024 11:0 8 PM CDT 12/07/2024 11:08 PM CDT Gil Diez DO LAB POCT ORDERABLES - DEVIC E Final Result Performing Organization Address [facility] de Phone Number [place] [address] [facility] [place] [address] * POCT glucose (12/07/2024 11:07 PM CDT) Glucose, POC 71 70 - 199 mg/dL Comment:Testing performed by : [address] [address] Blood 12/07/2024 11:0 7 PM CDT 12/07/2024 11:07 PM CDT Gil Diez DO LAB POCT ORDERABLES - DEVIC E Final Result Performing Organization Address City/[facility] Co de Phone Number [address] [place] [address] * XR Chest 1 Vw Portable (If [...] Patrick Zhou M.D. KH: KATH Report ID: [id number] Reading Location: [id number] Procedure Note Patrick Zhou MD - 12/07/2024 [...] Patrick Zhou M.D. KH: KATH Report ID: [id number] Reading Location: [place] [address] us Gil Diez DO IMG XR PROCEDURES Final Res ult * (ABNORMAL) Troponin T high-sensitivity series (baseline, 2hr, 4hr, 6hr) (12/07/2024 10:47 PM CDT) Pathologist [facility] [place] Trop T hs 30(H) <=14 ng/L Comment: Interpretive Data For further hscTnT resources including the diagnostic algorithm and an aid in interpretation, copy and paste this link: https://nrl.testcatalog.org/show/hsTrop Current Interpretive Data last revised 2020. Testing performed by: [facility], [address] [place] [address]., [address] Blood 12/07/2024 10:4 7 PM CDT 12/07/2024 10:51 PM CDT us Gil Diez DO LAB BLOOD ORDERABLES Final Result MARY JANE [address] [facility] [place] [address] * eGFR (12/07/2024 10:47 PM CDT) Pathologist [facility] [place] eGFR 83 >=60 mL/min/1. 73 m2 Comment: [...] last reviewed 2021. Testing performed by: [address] [address] Blood 12/07/2024 10:4 7 PM CDT 12/07/2024 10:51 PM CDT Gil Diez DO LAB BLOOD ORDERABLES Final Result MARY JANE [facility] [place] [address] * (ABNORMAL) Differential, auto (12/07/2024 10:47 PM CDT) Neutrophil abs 7.66(H) 1.50 - 6.50 K/cumm Comment:Testing performed by : [address] [address] Imm gran abs 0.06 0.00 - 0.10 K/cumm MARY JANE Comment:Testing performed by : [address] [address] Lymphocyte abs 3.48(H) 0.80 - 3.30 K/cumm MARY JANE Comment:Testing performed by : [address] [address] Monocyte abs 1.03(H) 0.20 - 0.80 K/cumm MARY JANE Comment:Testing performed by : [address] [address] Eosinophil abs 0.22 0.00 - 0.50 K/cumm [facility] Comment:Testing performed by : [address] [address] Basophil abs 0.05 0.00 - 0.10 K/cumm [facility] Comment:Testing performed by : [address] [address] Neutrophil pct 61.3 % [facility] Comment: Interpretive Data Percent cell count reference ranges are not reported, since discordance with absolute values may lead to misinterpretation of CBC data. Current Interpretive Data was last revised on 2017. Testing performed by: [address] [address] Imm gran pct 0.5 % [facility] Comment: Interpretive Data Percent cell count reference ranges are not reported, since discordance with absolute values may lead to misinterpretation of CBC data. Current Interpretive Data was last revised on 2017. Testing performed by: [address] [address] Lymphocyte pct 27.8 % [facility] Comment: Interpretive Data Percent cell count reference ranges are not reported, since discordance with absolute values may lead to misinterpretation of CBC data. Current Interpretive Data was last revised on 2017. Testing performed by: [address] [address] Monocyte pct 8.2 % [facility] Comment: Interpretive Data Percent cell count reference ranges are not reported, since discordance with absolute values may lead to misinterpretation of CBC data. Current Interpretive Data was last revised on 2017. Testing performed by: [address] [address] Eosinophil pct 1.8 % [facility] Comment: Interpretive Data Percent cell count reference ranges are not reported, since discordance with absolute values may lead to misinterpretation of CBC data. Current Interpretive Data was last revised on 2017. Testing performed by: [address] [address] Basophil pct 0.4 % [facility] Comment: Interpretive Data Percent cell count reference ranges are not reported, since discordance with absolute values may lead to misinterpretation of CBC data. Current Interpretive Data was last revised on 2017. Testing performed by: [facility], [address] [place] [address], [place]., [address] Blood 12/07/2024 10:4 7 PM CDT 12/07/2024 10:51 PM CDT us Gil Diez DO LAB BLOOD ORDERABLES Final Result MARY JANE [address] [facility] [place] [address] * Pro B-type natriuretic peptide (12/07/2024 10:47 [...] Revised Date: 2017. Testing performed by: [address] [address] Blood 12/07/2024 10:4 7 PM CDT 12/07/2024 10:51 PM CDT us Gil Diez DO LAB BLOOD ORDERABLES Final Result [facility] [address] [facility] [place] [address] * (ABNORMAL) CBC with auto differential (12/07/2024 10:47 PM CDT) WBC 12.50(H) 3.80 - 9.90 K/cumm Comment:Testing performed by : [address] [address] Hgb 13.2 11.9 - 15.5 g/dL MARY JANE Comment:Testing performed by : [address] [address] Hct 41.9 35.6 - 45.5 % MARY JANE Comment:Testing performed by : [address] [address] Plt 315 150 - 400 K/cumm MARY JANE Comment:Testing performed by : [address] [address] MPV 9.7 9.1 - 12.3 fL MARY JANE Comment:Testing performed by : [address] [address] RBC 4.65 3.90 - 5.20 M/cumm MARY JANE Comment:Testing performed by : [address] [address] MCV 90.1 81.3 - 96.4 fL MARY JANE Comment:Testing performed by : [address] [address] MCH 28.4 27.1 - 33.3 pg MARY JANE PHAM Comment:Testing performed by : [address] [address] MCHC 31.5(L) 32.3 - 35.7 g/dL MARY JANE PHAM Comment:Testing performed by : [facility], [address] [place] [address]., [address] RDW CV 13.3 11.1 - 14.9 % MARY JANE Comment:Testing performed by : [address] [address] RDW SD 43.7 35.7 - 48.1 fL MARY JANE Comment:Testing performed by : [address] [address] NRBC abs 0.00 0.00 - 0.01 K/cumm MARY JANE Comment:Testing performed by : [address] [address] Blood 12/07/2024 10:4 7 PM CDT 12/07/2024 10:51 PM CDT Gil Diez DO LAB BLOOD ORDERABLES Final Result Performing Organization Address [facility] Co de Phone Number [address] [place] [employer] [place] [address] * Magnesium (12/07/2024 10:47 PM CDT) Pathologist [facility] Magnesium 1.9 1.4 - 2.5 mg/dL Comment:Testing performed by : [address] [address] Blood 12/07/2024 10:4 7 PM CDT 12/07/2024 10:51 PM CDT Gil Diez DO LAB BLOOD ORDERABLES Final Result Performing Organization Address City/[facility] Co de Phone Number [address] [address] * (ABNORMAL) Comprehensive metabolic panel (12/07/2024 10:47 PM CDT) Pathologist [facility] Sodium 141 135 - 145 mmol/L Comment:Testing performed by : [address] [address] Potassium, pl 3.9 3.3 - 4.9 mmol/L MARY JANE Comment:Testing performed by : [address], [place]., [address] Chloride 102 97 - 110 mmol/L MARY JANE Comment:Testing performed by : [address], [place]., [address] CO2 25 22 - 32 mmol/L MARY JANE Comment:Testing performed by : [address], [place]., [address] Anion gap 14 2 - 15 mmol/L MARY JANE Comment:Testing performed by : [address], [place]., [address] BUN 19 6 - 25 mg/dL MARY JANE Comment:Testing performed by : [address], [place]., [address] Creatinine 0.78 0.60 - 1.10 mg/dL MARY JANE Comment:Testing performed by : [address], [place]., [address] Glucose 92 70 - 199 mg/dL MARY [...] last revised 2022. Testing performed by: [address] [address] Calcium 10.7(H) 8.5 - 10.3 mg/dL MARY JANE Comment:Testing performed by : [address] [address] Bilirubin, total 0.5 0.1 - 1.2 mg/dL MARY JANE Comment:Testing performed by : [address], [place]., [address] Protein, pl 8.4 6.5 - 8.5 g/dL MARY JANE Comment:Testing performed by : [address] [address] Albumin 4.1 3.5 - 5.0 g/dL MARY JANE Comment:Testing performed by : [address] [address] Alk phos 79 40 - 130 Units/L MARY JANE Comment:Testing performed by : [address] [address] ALT 21 7 - 45 Units/L MARY JANE Comment:Testing performed by : [address] [address] AST 21 10 - 45 Units/L MARY JANE Comment:Testing performed by : [address] [address] Blood 12/07/2024 10:4 7 PM CDT 12/07/2024 10:51 PM CDT us Gil Diez DO LAB BLOOD ORDERABLES Final Result MARY JANE [address] [facility] [place] [address] * ECG 12 lead (12/07/2024 10:32 PM CDT) Ventricular Rate EKG/Min 78 BPM [facility] Atrial Rate 78 BPM [facility] AL-Interval (MSEC) 104 ms [facility] QRS-Interval (MSEC) 84 ms [facility] QT-Interval (MSEC) 392 ms [facility] QTc 446 ms [facility] P [place] -65 degrees [facility] R [place] 0 degrees [facility] T [place] 44 degrees [facility] Diagnosis Sinus rhythm. Otherwise normal ECG When compared with ECG of 07-DEC-2024 22:32, Premature ventricular complexes are no longer Present Premature atrial complexes are now Present Confirmed by MD JOHNNA, VINCENT ([id number]) on 12/08/2024 11:31:38 PM [facility] 12/07/2024 10:3 2 PM CDT 12/08/2024 11:31 PM CDT us Gil Aguila Abbeg DO ECG ORDERABLES Final Resul t Performing Organization Address [facility] Co de Phone Number [facility] * ECG 12 lead (12/07/2024 10:32 PM CDT) [facility] Ventricular Rate EKG/Min 75 BPM [facility] Atrial Rate 75 BPM [facility] AL-Interval (MSEC) 138 ms [facility] QRS-Interval (MSEC) 84 ms [facility] QT-Interval (MSEC) 360 ms [facility] QTc 402 ms [facility] P [place] -78 degrees [facility] R [place] -3 degrees [facility] T [place] 33 degrees [facility] Diagnosis Unusual P axis and short AL, probable junctional rhythm with occasional Premature ventricular complexes Abnormal ECG When compared with ECG of 02-DEC-2024 15:33, Junctional rhythm has replaced Sinus rhythm Confirmed by MD JOHNNA, VINCENT ([id number]), marketing editor RIMA GELLER ([id number]) on 12/08/2024 8:22:42 AM Also confirmed by MD OROPEZA ROBERT ([id number]), marketing editor KRISTINE LEIJA ([id number]) on 12/09/2024 8:25:14 AM [facility] 12/07/2024 10:3 2 PM CDT 12/09/2024 8:25 AM CDT Gil Diez DO ECG ORDERABLES Edited Resu lt - Final Performing Organization Address [facility] Co de Phone Number [facility] * (ABNORMAL) POCT glucose (12/05/2024 1:27 PM CDT) Glucose, POC 251(H) 70 - 199 mg/dL Comment:Testing performed by : [facility], [address] [place] [address]., [id number] Glucose comment 1 RN/MD Notified MARY JANE PHAM Comment:Testing performed by : [facility], [address] [place] [address]., [id number] Blood 12/05/2024 1:27 PM CDT 12/05/2024 1:27 PM CDT Kenzie Jiménez MD LAB POCT ORDERABLES - DE VICE Final Result MARY JANE [address] [facility] [place] [address] * XR Chest PA Lateral 2 Views [...] Barbara Man M.D. TW: SAROJ Report ID: [id number] Reading Location: [id number] Procedure Note Barbara Man MD - 12/05/2024 [...] Barbara Man M.D. TW: TW Report ID: [id number] Reading Location: [place] [address] Kenzie Jiménez MD IMG XR PROCEDURES Final Result * POCT glucose (12/05/2024 8:38 AM CDT) [facility] Glucose, POC 144 70 - 199 mg/dL Comment:Testing performed by : [facility], [address] [place] [address]., [id number] Glucose comment 1 RN/MD Notified MARY JANE PHAM Comment:Testing performed by : [facility], [address] [place] [address]., [address] Blood 12/05/2024 8:38 AM CDT 12/05/2024 8:38 AM CDT Kenzie Jiménez MD LAB POCT ORDERABLES - DE VICE Final Result MARY JANE PHAM [address] [facility] [place] [address] * eGFR (12/05/2024 5:04 AM CDT) [facility] eGFR >90 >=60 mL/min/1. 73 m2 Comment: [...] last reviewed 2021. Testing performed by: [address] [address] Blood 12/05/2024 5:04 AM CDT 12/05/2024 5:24 AM CDT us Santos Wallace MD LAB BLOOD ORDERABLES Final Res ult MARY JANE [facility]8 [facility] [place] [address] * (ABNORMAL) CBC without differential (12/05/2024 5:04 AM CDT) WBC 11.17(H) 3.80 - 9.90 K/cumm Comment:Testing performed by : [address] [address] Hgb 12.2 11.9 - 15.5 g/dL MARY JANE PHAM Comment:Testing performed by : [address] [address] Hct 38.4 35.6 - 45.5 % MARY JANE PHAM Comment:Testing performed by : [address] [address] Plt 286 150 - 400 K/cumm MARY JANE PHAM Comment:Testing performed by : [address] [address] MPV 9.8 9.1 - 12.3 fL MARY JANE PHAM Comment:Testing performed by : [address] [address] RBC 4.27 3.90 - 5.20 M/cumm MARY JANE PHAM Comment:Testing performed by : [address] [address] MCV 89.9 81.3 - 96.4 fL MARY JANE PHAM Comment:Testing performed by : [address] [address] MCH 28.6 27.1 - 33.3 pg MARY JANE PHAM Comment:Testing performed by : [address] [address] MCHC 31.8(L) 32.3 - 35.7 g/dL MARY JANE PHAM Comment:Testing performed by : [address] [address] RDW CV 13.5 11.1 - 14.9 % MARY JANE PHAM Comment:Testing performed by : [address] [address] RDW SD 44.3 35.7 - 48.1 fL MARY JANE Comment:Testing performed by : [address] [address] NRBC abs 0.00 0.00 - 0.01 K/cumm MARY JANE PHAM Comment:Testing performed by : [address] [address] Blood 12/05/2024 5:04 AM CDT 12/05/2024 5:24 AM CDT us Santos Wallace MD LAB BLOOD ORDERABLES Final Res ult MARY JANE [address] [facility] [place] [address] * Basic metabolic panel (12/05/2024 5:04 AM CDT) Pathologist [facility] Sodium 138 135 - 145 mmol/L Comment:Testing performed by : [address] [address] Potassium, pl 3.7 3.3 - 4.9 mmol/L MARY JANE PHAM Comment:Testing performed by : [address] [address] Chloride 101 97 - 110 mmol/L MARY JANE Comment:Testing performed by : [address] [address] CO2 25 22 - 32 mmol/L MARY JANE Comment:Testing performed by : [address] [address] Anion gap 12 2 - 15 mmol/L MARY JANE Comment:Testing performed by : [address], [place]., [address] BUN 20 6 - 25 mg/dL MARY JANE Comment:Testing performed by : [address] [address] Creatinine 0.71 0.60 - 1.10 mg/dL MARY JANE Comment:Testing performed by : [address] [address] Glucose 159 70 - 199 mg/dL MARY [...] last revised 2022. Testing performed by: [address] [address] Calcium 9.5 8.5 - 10.3 mg/dL MARY JANE Comment:Testing performed by : [address] [address] Blood 12/05/2024 5:04 AM CDT 12/05/2024 5:24 AM CDT us Santos Wallace MD LAB BLOOD ORDERABLES Final Res ult MARY JANE [address] [address] * POCT glucose (12/04/2024 8:45 PM CDT) Glucose, POC 147 70 - 199 mg/dL Comment:Testing performed by : [address] [address] Blood 12/04/2024 8:45 PM CDT 12/04/2024 8:45 PM CDT Kenzie Jiménez MD LAB POCT ORDERABLES - DE VICE Final Result Performing Organization Address City/[facility]/ZIP Co de Phone Number MARY JANE [address] [address] * POCT glucose (12/04/2024 4:27 PM CDT) Glucose, POC 153 70 - 199 mg/dL Comment:Testing performed by : [address] [address] Blood 12/04/2024 4:27 PM CDT 12/04/2024 4:27 PM CDT Kenzie Jiménez MD LAB POCT ORDERABLES - DE VICE Final Result Performing Organization Address City/[facility]/ZIP Co de Phone Number [address] [address] * NM Myocardial Amyloidosis Imaging [employer] [...] Olinda Bernal M.D. FT: FT Report ID: [id number] Reading Location: [id number] Procedure Note Olinda Wells MD - 12/04/2024 [...] Olinda Bernal M.D. FT: FT Report ID: [id number] Reading Location: [id number] Salinas Medina MD [facility] NM PROCEDURES Final Result * POCT glucose (12/04/2024 11:15 AM CDT) Glucose, POC 91 70 - 199 mg/dL Comment:Testing performed by : [facility], [address] [place] [address]., [address] Blood 12/04/2024 11:1 5 AM CDT 12/04/2024 11:15 AM CDT Kenzie Jiménez MD LAB POCT ORDERABLES - DE VICE Final Result Performing Organization Address City/[facility] Co de Phone Number MARY JANE [address] [place] [employer] [address] * POCT glucose (12/04/2024 7:57 AM CDT) Glucose, POC 150 70 - 199 mg/dL Comment:Testing performed by : [facility], [address] [place] [address]., [address] Blood 12/04/2024 7:57 AM CDT 12/04/2024 7:57 AM CDT Kenzie Jiménez MD LAB POCT ORDERABLES - DE VICE Final Result Performing Organization Address [facility] Co ia Phone Number [address] [address] * eGFR (12/04/2024 5:35 AM CDT) eGFR [...] of Race in Diagnosing Kidney Disease, JASN 2021). The CKD-EPI equation should not be used for patients with unstable renal function and has not been validated in children and those over 70. Current interpretive data was last reviewed 2021. Testing performed by: [address] [address] Blood 12/04/2024 5:35 AM CDT 12/04/2024 6:37 AM CDT us Kenzie Jiménez MD LAB BLOOD ORDERABLES [facility] al Result [facility]0 [facility] [place] [address] * (ABNORMAL) Differential, auto (12/04/2024 5:35 AM CDT) Neutrophil abs 7.29(H) 1.50 - 6.50 K/cumm Comment:Testing performed by : [address] [address] Imm gran abs 0.06 0.00 - 0.10 K/cumm MARY JANE Comment:Testing performed by : [address] [address] Lymphocyte abs 2.56 0.80 - 3.30 K/cumm MARY JANE Comment:Testing performed by : [address] [address] Monocyte abs 0.75 0.20 - 0.80 K/cumm MARY JANE Comment:Testing performed by : [address] [address] Eosinophil abs 0.21 0.00 - 0.50 K/cumm MARY JANE Comment:Testing performed by : [address] [address] Basophil abs 0.03 0.00 - 0.10 K/cumm MARY JANE Comment:Testing performed by : [address] [address] Neutrophil pct 66.8 % MARY JANE Comment: Interpretive Data Percent cell count reference ranges are not reported, since discordance with absolute values may lead to misinterpretation of CBC data. Current Interpretive Data was last revised on 2017. Testing performed by: [address] [address] Imm gran pct 0.6 % [facility] Comment: Interpretive Data Percent cell count reference ranges are not reported, since discordance with absolute values may lead to misinterpretation of CBC data. Current Interpretive Data was last revised on 2017. Testing performed by: [address] [address] Lymphocyte pct 23.5 % [facility] Comment: Interpretive Data Percent cell count reference ranges are not reported, since discordance with absolute values may lead to misinterpretation of CBC data. Current Interpretive Data was last revised on 2017. Testing performed by: [address] [address] Monocyte pct 6.9 % [facility] Comment: Interpretive Data Percent cell count reference ranges are not reported, since discordance with absolute values may lead to misinterpretation of CBC data. Current Interpretive Data was last revised on 2017. Testing performed by: [address] [address] Eosinophil pct 1.9 % [facility] Comment: Interpretive Data Percent cell count reference ranges are not reported, since discordance with absolute values may lead to misinterpretation of CBC data. Current Interpretive Data was last revised on 2017. Testing performed by: [address] [address] Basophil pct 0.3 % [facility] Comment: Interpretive Data Percent cell count reference ranges are not reported, since discordance with absolute values may lead to misinterpretation of CBC data. Current Interpretive Data was last revised on 2017. Testing performed by: [address] [address] Blood 12/04/2024 5:35 AM CDT 12/04/2024 6:37 AM CDT us Kenzie Jiménez MD LAB BLOOD ORDERABLES Fin al Result MARY JANE [address] [facility] [place] [address] * (ABNORMAL) Immunoglobulin free light chains (12/04/2024 5:35 AM CDT) [facility] [place]/Lambda ratio [facility] 1.26 0.26 - 1.65 Comment: Interpretive Data The Binding Site FreeLite assay procedure was used. Results from different manufacturers or methods may not be comparable. Serial testing should be performed using the same methods and instrumentation. Current Interpretive Data was last revised on 2023. Testing performed by: [facility], [address] [place]., [address] [place] free light chain [facility] 3.37(H) 0.33 - 1.94 mg/dL MARY JANE Comment: Interpretive Data The Binding Site FreeLite assay procedure was used. Results from different manufacturers or methods may not be comparable. Serial testing should be performed using the same methods and instrumentation. Current Interpretive Data was last revised on 2023. Testing performed by: [facility], [address] [place]., [address] Lambda free light chain [facility] 2.67(H) 0.57 - 2.63 mg/dL MARY JANE Comment: Interpretive Data The Binding Site FreeLite assay procedure was used. Results from different manufacturers or methods may not be comparable. Serial testing should be performed using the same methods and instrumentation. Current Interpretive Data was last revised on 2023. Testing performed by: [facility], [address] [place]., [address] Blood 12/04/2024 5:35 AM CDT 12/04/2024 9:21 AM CDT Salinas Medina MD LAB BLOOD ORDERABLES [facility] Result MARY JANE [address] [facility] [place] [address] * (ABNORMAL) CBC with auto differential (12/04/2024 5:35 AM CDT) WBC 10.90(H) 3.80 - 9.90 K/cumm Comment:Testing performed by : [address] [address] Hgb 12.0 11.9 - 15.5 g/dL MARY JANE Comment:Testing performed by : [address] [address] Hct 38.0 35.6 - 45.5 % MARY JANE Comment:Testing performed by : [address] [address] Plt 258 150 - 400 K/cumm MARY JANE Comment:Testing performed by : [address] [address] MPV 10.1 9.1 - 12.3 fL MARY JANE Comment:Testing performed by : [address] [address] RBC 4.18 3.90 - 5.20 M/cumm MARY JANE Comment:Testing performed by : [address] [address] MCV 90.9 81.3 - 96.4 fL MARY JANE Comment:Testing performed by : [address] [address] MCH 28.7 27.1 - 33.3 pg MARY JANE Comment:Testing performed by : [address] [address] MCHC 31.6(L) 32.3 - 35.7 g/dL MARY JANE Comment:Testing performed by : [address] [address] RDW CV 13.5 11.1 - 14.9 % MARY JANE Comment:Testing performed by : [address] [address] RDW SD 45.0 35.7 - 48.1 fL MARY JANE Comment:Testing performed by : [address] [address] NRBC abs 0.00 0.00 - 0.01 K/cumm MARY JANE Comment:Testing performed by : [address] [address] Blood 12/04/2024 5:35 AM CDT 12/04/2024 6:37 AM CDT Kenzie Jiménez MD LAB BLOOD ORDERABLES Fin al Result Performing Organization Address City/[facility] Co de Phone Number [address] [address] * Magnesium (12/04/2024 5:35 AM CDT) Pathologist [facility] Magnesium 1.7 1.4 - 2.5 mg/dL Comment:Testing performed by : [address] [address] Blood 12/04/2024 5:35 AM CDT 12/04/2024 6:37 AM CDT Kenzie Jiménez MD LAB BLOOD ORDERABLES Fin al Result Performing Organization Address [facility] de Phone Number [address] [address] * (ABNORMAL) Hemoglobin A1c (12/04/2024 5:35 AM CDT) Pathologist [facility] Hgb A1C 9.7(H) 4.0 - 5.6 % Comment:Testing performed by : [address] [address] Estimated Average Glucose 232 mg/dL MARY JANE Comment: The ADA recommends reporting an estimated Average Glucose (eAG) with all Hemoglobin A1c results using the equation derived from a study of 507 normal and diabetic adults. Minority populations were underrepresented and children were not included. (Diabetes Care 31:4935-1175, 2008). The eAG is not equivalent to a fasting glucose. Testing performed by: [address] [address] Blood 12/04/2024 5:35 AM CDT 12/04/2024 6:39 AM CDT Salinas Medina MD LAB BLOOD ORDERABLES Fi nal Result MARY JANE [address] [facility] [place] [address] * Lipid panel (12/04/2024 5:35 AM CDT) [...] revised on 2017. Testing performed by: [address] [address] Triglycerides 140 <=149 mg/dL MARY JANE Comment: [...] revised on 2017. Testing performed by: [address] [address] HDL 43 >=40 mg/dL MARY JANE Comment: [...] revised on 2017. Testing performed by: [address] [address] LDL, calculated 108 <=129 mg/dL MARY JANE [...] last revised on 2023. Testing performed by: [address] [address] Non-HDL Cholesterol 133 mg/dL MARY JANE Comment: [...] revised on 2017. Testing performed by: [address] [address] Chol/HDL ratio 4 MARY JANE Comment:Testing performed by : [address] [place] [address] Blood 12/04/2024 5:35 AM CDT 12/04/2024 6:37 AM CDT Salinas Medina MD LAB BLOOD ORDERABLES Fi nal Result [facility] [address] [facility] [place] [address] * (ABNORMAL) Comprehensive metabolic panel (12/04/2024 5:35 AM CDT) Sodium 136 135 - 145 mmol/L Comment:Testing performed by : [address] [address] Potassium, pl 3.9 3.3 - 4.9 mmol/L MARY JANE Comment:Testing performed by : [address] [address] Chloride 99 97 - 110 mmol/L MARY JANE Comment:Testing performed by : [address] [address] CO2 26 22 - 32 mmol/L MARY JANE Comment:Testing performed by : [address] [address] Anion gap 11 2 - 15 mmol/L MARY JANE Comment:Testing performed by : [address] [address] BUN 17 6 - 25 mg/dL MARY JANE Comment:Testing performed by : [address] [address] Creatinine 0.69 0.60 - 1.10 mg/dL MARY JANE Comment:Testing performed by : [address] [address] Glucose 149 70 - 199 mg/dL MARY [...] last revised 2022. Testing performed by: [address] [address] Calcium 9.5 8.5 - 10.3 mg/dL MARY JANE Comment:Testing performed by : [address] [address] Bilirubin, total 0.8 0.1 - 1.2 mg/dL MARY JANE Comment:Testing performed by : [address] [address] Protein, pl 6.8 6.5 - 8.5 g/dL MARY JANE Comment:Testing performed by : [address] [address] Albumin 3.3(L) 3.5 - 5.0 g/dL MARY JANE Comment:Testing performed by : [address] [address] Alk phos 64 40 - 130 Units/L MARY JANE Comment:Testing performed by : [address] [address] ALT 17 7 - 45 Units/L MARY JANE Comment:Testing performed by : [address] [address] AST 15 10 - 45 Units/L MARY JANE Comment:Testing performed by : [address] [address] Blood 12/04/2024 5:35 AM CDT 12/04/2024 6:37 AM CDT us Kenzie Jiménez MD LAB BLOOD ORDERABLES Fin al Result MARY JANE [address] [facility] [place] [address] * POCT glucose (12/03/2024 9:20 PM CDT) [facility] Glucose, POC 105 70 - 199 mg/dL Comment:Testing performed by : [address] [address] Blood 12/03/2024 9:20 PM CDT 12/03/2024 9:20 PM CDT Kenzie Jiménez MD LAB POCT ORDERABLES - DE VICE Final Result Performing Organization Address [facility] de Phone Number MARY JANE [address] [place] [address] * POCT glucose (12/03/2024 4:42 PM CDT) Glucose, POC 145 70 - 199 mg/dL Comment:Testing performed by : [address] [address] Glucose comment 1 Will Repeat Test MARY JANE Comment:Testing performed by : [address] [address] Glucose comment 2 RN/MD Notified MARY JANE Comment:Testing performed by : [address] [address] Blood 12/03/2024 4:42 PM CDT 12/03/2024 4:42 PM CDT Kenzie Jiménez MD LAB POCT ORDERABLES - DE VICE Final Result Performing Organization Address [facility] de Phone Number [address] [address] * POCT glucose (12/03/2024 12:25 PM CDT) Glucose, POC 199 70 - 199 mg/dL Comment:Testing performed by : [address] [address] Glucose comment 1 Will Repeat Test MARY JANE Comment:Testing performed by : [address] [address] Glucose comment 2 RN/MD Notified MARY JANE Comment:Testing performed by : [address] [address] Blood 12/03/2024 12:2 5 PM CDT 12/03/2024 12:25 PM CDT us Kenzie Jiménez MD LAB POCT ORDERABLES - DE VICE Final Result MARY JANE [facility]3 [facility] [place] [address] * TRANSTHORACIC ECHO (TTE) COMPLETE W DOPPLER/CF [...] AM Ht(Inch): 61 Wt(Lb): 275.99 BSA: 2.32 Senior Reservations Agent: Coni Vee RDCS Location: [id number] Order Provider: PATRICK RICE Heart Rate: 76 BMI: 52.14 BP: 130 / 79 Ref Provider: PATRICK RICE PROCEDURES: Echocardiographic Report: ([id number]) Transthoracic complete echo with contrast, 2D, spectral [...] AM Ht(Inch): 61 Wt(Lb): 275.99 BSA: 2.32 Senior Reservations Agent: Coni Vee RDCS Location: [id number] Order Provider:PATRICK RICE Heart Rate: 76 BMI: 52.14 BP: 130 / 79 Ref Provider: PATRICK RICE PROCEDURES: Echocardiographic Report: ([id number]) Transthoracic complete echo withcontrast, 2D, spectral and [...] LA Length 4C 5.56 cm MV A [id number] msec LA Volume BP 41.30 ml MV [...] * POCT glucose (12/03/2024 8:13 AM CDT) [facility] Glucose, POC 159 70 - 199 mg/dL Comment:Testing performed by : [address] [address] Glucose comment 1 Will Repeat Test MARY JANE PHAM Comment:Testing performed by : [address] [address] Glucose comment 2 RN/MD Notified MARY JANE PHAM Comment:Testing performed by : [address] [address] Blood 12/03/2024 8:13 AM CDT 12/03/2024 8:13 AM CDT Kenzie Jiménez MD LAB POCT ORDERABLES - DE VICE Final Result Performing Organization Address [facility] de Phone Number MARY JANE [facility] [place] [address] * eGFR (12/03/2024 5:13 AM CDT) Pathologist [facility] eGFR >90 >=60 mL/min/1. 73 m2 Comment: [...] last reviewed 2021. Testing performed by: [address] [address] Blood 12/03/2024 5:13 AM CDT 12/03/2024 5:37 AM CDT Santos Wallace MD LAB BLOOD ORDERABLES Final Res ult Performing Organization Address [facility]/ZIP Co de Phone Number MARY JANE [facility]0 [facility] [place] [address] * (ABNORMAL) CBC without differential (12/03/2024 5:13 AM CDT) Pathologist [facility] WBC 10.70(H) 3.80 - 9.90 K/cumm Comment:Testing performed by : [address] [address] Hgb 12.1 11.9 - 15.5 g/dL MARY JANE Comment:Testing performed by : [address] [address] Hct 37.8 35.6 - 45.5 % MARY JANE Comment:Testing performed by : [address] [address] Plt 258 150 - 400 K/cumm MARY JANE Comment:Testing performed by : [address] [address] MPV 9.8 9.1 - 12.3 fL MARY JANE Comment:Testing performed by : [address] [address] RBC 4.15 3.90 - 5.20 M/cumm MARY JANE Comment:Testing performed by : [address], [address] MCV 91.1 81.3 - 96.4 fL MARY JANE Comment:Testing performed by : [address], [address] MCH 29.2 27.1 - 33.3 pg MARY JANE Comment:Testing performed by : [address] [address] MCHC 32.0(L) 32.3 - 35.7 g/dL MARY JANE Comment:Testing performed by : [address], [address] RDW CV 13.7 11.1 - 14.9 % MARY JANE Comment:Testing performed by : [address], [address] RDW SD 45.7 35.7 - 48.1 fL MARY JANE Comment:Testing performed by : [address] [address] NRBC abs 0.00 0.00 - 0.01 K/cumm MARY JANE Comment:Testing performed by : [address], [address] Blood 12/03/2024 5:13 AM CDT 12/03/2024 5:42 AM CDT us Santos Wallace MD LAB BLOOD ORDERABLES Final Res ult MARY JANE [address] [facility] [place] [address] * Basic metabolic panel (12/03/2024 5:13 AM CDT) Sodium 139 135 - 145 mmol/L Comment:Testing performed by : [address] [address] Potassium, pl 3.8 3.3 - 4.9 mmol/L MARY JANE Comment:Testing performed by : [address] [address] Chloride 101 97 - 110 mmol/L MARY JANE Comment:Testing performed by : [address] [address] CO2 27 22 - 32 mmol/L MARY JANE Comment:Testing performed by : [address] [address] Anion gap 11 2 - 15 mmol/L MARY JANE Comment:Testing performed by : [address] [address] BUN 16 6 - 25 mg/dL MARY JANE Comment:Testing performed by : [address] [address] Creatinine 0.70 0.60 - 1.10 mg/dL MARY JANE Comment:Testing performed by : [address] [address] Glucose 170 70 - 199 mg/dL MARY [...] last revised 2022. Testing performed by: [address] [address] Calcium 9.5 8.5 - 10.3 mg/dL MARY JANE PHAM Comment:Testing performed by : [address] [address] Blood 12/03/2024 5:13 AM CDT 12/03/2024 5:37 AM CDT us Santos Wallace MD LAB BLOOD ORDERABLES Final Res ult Performing Organization Address [facility] Co de Phone Number MARY JANE [address] [place] [employer] [address] * POCT glucose (12/02/2024 11:12 PM CDT) [facility] Glucose, POC 108 70 - 199 mg/dL Comment:Testing performed by : [address] [address] Glucose comment 1 RN/MD Notified MARY JANE Comment:Testing performed by : [address] [address] Blood 12/02/2024 11:1 2 PM CDT 12/02/2024 11:12 PM CDT Santos Wallace MD LAB POCT ORDERABLES - DEVICE F inal Result Performing Organization Address [facility] de Phone Number MARY JANE [address] [address] * (ABNORMAL) Troponin T high-sensitivity 6-hour (12/02/2024 10:06 PM CDT) [facility] Trop T hs 24(H) <=14 ng/L Comment: Interpretive Data For further hscTnT resources including the diagnostic algorithm and an aid in interpretation, copy and paste this link: https://nrl.testcatalog.org/show/hsTrop Current Interpretive Data last revised 2020. Testing performed by: [address] [address] Trop T hs delta -1 ng/L MARY JANE PHAM Comment:Testing performed by : [address] [address] Trop T hs interp Insignificant MARY JANE Comment:Testing performed by : [address] [address] Blood 12/02/2024 10:0 6 PM CDT 12/02/2024 10:08 PM CDT us Gil Diez DO LAB BLOOD ORDERABLES Final Result Performing Organization Address [facility] Co de Phone Number [address] [place] [address] * POCT glucose (12/02/2024 10:03 PM CDT) [facility] Glucose, POC 110 70 - 199 mg/dL Comment:Testing performed by : [address] [address] Blood 12/02/2024 10:0 3 PM CDT 12/02/2024 10:03 PM CDT us Santos Wallace MD LAB POCT ORDERABLES - DEVICE F inal Result Performing Organization Address [facility] de Phone Number [address] [address] * (ABNORMAL) Troponin T high-sensitivity 4-hour (12/02/2024 8:26 PM CDT) [facility] Trop T hs 22(H) <=14 ng/L Comment: Interpretive Data For further hscTnT resources including the diagnostic algorithm and an aid in interpretation, copy and paste this link: https://nrl.testcatalog.org/show/hsTrop Current Interpretive Data last revised 2020. Testing performed by: [address] [address] Trop T hs delta -3 ng/L MARY JANE PHAM Comment:Testing performed by : [address] [address] Trop T hs interp Insignificant MARY JANE Comment:Testing performed by : [address] [place] [address] Blood 12/02/2024 8:26 PM CDT 12/02/2024 8:31 PM CDT us Gil Sheehan [facility] [place] LAB BLOOD ORDERABLES Final Result MARY JANE [address] [facility] [place] [address] * CT Chest PE (CTA) W Contrast [...] Perfecto Arguello M.D. LB: LB Report ID: [id number] Reading Location: [place] [address] Procedure Note Perfecto Arguello MD - 12/02/2024 [...] left lower lobe (image 61) isunchanged from 2021. Small right posterolateral tracheal diverticulum. PLEURAE: No [...] Perfecto Arguello M.D. LB: TAYLOR Report ID: [id number] Reading Location: [place] [address] Patrick Rice DO IMG CT PROCEDURES Final Res ult * Sepsis Lactate w/ Reflex (12/02/2024 6:19 PM CDT) [facility] Sepsis Lactate 1.2 0.7 - 2.0 mmol/L Comment:Testing performed by : [address] [address] Blood 12/02/2024 6:19 PM CDT 12/02/2024 6:22 PM CDT Patrick Rice DO LAB BLOOD ORDERABLES Final Result MARY JANE [address] [facility] [place] [address] * (ABNORMAL) Urinalysis reflex to microscopic and culture Urine (12/02/2024 6:19 PM CDT) Pathologist [facility] Color, ur Yellow Yellow Comment:Testing performed by : [address] [address] Clarity, ur Clear Clear MARY JANE Comment:Testing performed by : [address] [address] Specific gravity, ur 1.019 1.003 - 1.030 MARY JANE Comment:Testing performed by : [address] [address] pH, urine 7.0 MARY JANE Comment: Interpretive Data U rine pH is affected by diet, medications, systemic acid-base disturbances, and renal tubular function. pH may affect urinary stone formation. For example, urine pH below 6.0 may help reduce the tendency for calcium phosphate stones and pH greater than 6.0 may reduce the tendency for uric acid stone formation. Source: [facility] [employer] Current Interpretive Data was last revised on 2017 Testing performed by: [address] [address] Protein, ur ql Negative Negative MARY JANE Comment:Testing performed by : [address] [address] Glucose, ur ql 4+(A) Negative MARY JANE Comment:Testing performed by : [address] [address] Ketones, ur Negative Negative MARY JANE Comment:Testing performed by : [address] [address] Bilirubin, ur Negative Negative MARY JANE Comment:Testing performed by : [address] [address] Blood, ur Negative Negative MARY JANE Comment:Testing performed by : [address] [address] Urobilinogen, ur <2.0 <2.0 mg/dL MARY JANE Comment:Testing performed by : [address] [address] Nitrite, ur Negative Negative MARY JANE Comment:Testing performed by : [address] [address] Leukocyte esterase, ur Negative Negative MARY JANE Comment:Testing performed by : [address] [address] UA reflex comment Reflex conditions for microscopic UA and culture not met. MARY JANE PHAM Comment:Testing performed by : [facility], [address] [place] [address]., [address] Urine 12/02/2024 6:19 PM CDT 12/02/2024 6:22 PM CDT Patrick Les Sousahu LAB MICROBIOLOGY - GENERAL ORDERABLES Final Result MARY JANE PHAM [address] [facility] [place] [address] * (ABNORMAL) Drugs of Abuse Screen, Urine [...] was last reviewed 2022. Testing performed by: [address] [address] Barbiturates, ur Not Detected CutOff 200ng/mL MARY JANE PHAM Comment: Interpretive Data - Barbiturates: Samples containing greater than 200 ng/mL secobarbital or other cross-reacting barbiturate compounds are reported as positive. False positive and false negative results are possible. Confirmatory testing required for definitive results. Current Interpretive Data was last reviewed 2022. Testing performed by: [address] [address] Benzodiazepines, ur Not Detected CutOff 100ng/mL MARY JANE PHAM Comment: Interpretive Data - Benzodiazepines: Samples containing greater than 100 ng/mL nordiazepam or other cross-reacting compounds are reported as positive. False positive and false negative results are possible. Confirmatory testing required for definitive results. Current Interpretive Data was last reviewed 2022. Testing performed by: [address] [address] Cannabinoids, ur Not Detected CutOff 50 ng/mL MARY JANE PHAM Comment: Interpretive Data - Cannabinoids: Samples containing greater than 50 ng/mL delta-9 THC -COOH or other cross- reacting compounds are reported as positive. False positive and false negative results are possible. Confirmatory testing required for definitive results. Current Interpretive Data was last reviewed 2022. Testing performed by: [facility], [address] [place] [address]., [id number] Cocaine, ur Not Detected CutOff 150ng/mL [facility] Comment: Interpretive Data - Cocaine: Samples containing greater than 150 ng/mL benzoylecgonine or other cross- reacting compounds are reported as positive. False positive and false negative results are possible. Confirmatory testing required for definitive results. Current Interpretive Data was last reviewed 2022. Testing performed by: [address] [address] Fentanyl, Ur Not Detected Cutoff 1 ng/mL [facility] Comment: Interpretive Data - Fentanyl: Samples containing greater than 1 ng/mL fentanyl or other cross-reacting fentanyl compounds are reported as positive. False positive and false negative results are possible. Confirmatory testing required for definitive results. Current Interpretive Data was last reviewed 2022. Testing performed by: [address] [address] Methadone, ur Not Detected CutOff 300ng/mL [facility] Comment: Interpretive Data - Methadone: Samples containing greater than 300 ng/mL d,l-methadone or other cross-reacting compounds are reported as positive. False positive and false negative results are possible. Confirmatory testing required for definitive results. Current Interpretive Data was last reviewed 2022. Testing performed by: [address] [address] Opiates, ur Screen Positive, presumptive (A) CutOff 300ng/mL [facility] Comment: Interpretive Data - Opiates: Samples containing greater than 300 ng/mL morphine or other cross-reacting compounds are reported as positive. False positive and false negative results are possible. Confirmatory testing required for definitive results. Current Interpretive Data was last reviewed 2022. Testing performed by: [address] [address] Oxycodone, ur Not Detected CutOff 100ng/mL [facility] Comment: Interpretive Data - Oxycodone: Samples containing greater than 100 ng/mL oxycodone or other cross-reacting compounds are reported as positive. False positive and false negative results are possible. Confirmatory testing required for definitive results. Current Interpretive Data was last reviewed 2022. Testing performed by: [address] [address] Phencyclidine, ur Not Detected CutOff 25 ng/mL MARY JANE Comment: Interpretive Data - Phencyclidine: Samples containing greater than 25 ng/mL phencyclidine or other cross-reacting compounds are reported as positive. False positive and false negative results are possible. Confirmatory testing required for definitive results. Current Interpretive Data was last reviewed 2022. Testing performed by: [address] [address] Urine Creatinine 64 mg/dL MARY JANE Comment: Interpretive Data Urine Creatinine: < 10 mg/dL is extremely dilute = or > 10 but < 20 mg/dL is dilute = or > 20 mg/dL is normal Current Interpretive Data was last revised on 2017. Testing performed by: [address] [address] Urine 12/02/2024 6:19 PM CDT 12/02/2024 6:22 PM CDT Narrative [facility] - 12/02/2024 6:46 PM CDT Drug of Abuse screening is performed by immunoassay for medical purposes only. This is not to be used for Pain Management purposes. Patrick Rice DO LAB URINE ORDERABLES Final Result [facility] [address] [facility] [place] [address] * (ABNORMAL) D-dimer, quantitative (12/02/2024 [...] last revised on 2019. Testing performed by: [address] [address] Blood 12/02/2024 6:19 PM CDT 12/02/2024 6:22 PM CDT us Patrick Rice DO LAB BLOOD ORDERABLES Final Result Performing Organization Address City/[facility]/ZIP Co de Phone Number [address] Department [place] [employer] [place] [address] * (ABNORMAL) Troponin T high-sensitivity 2-hour (12/02/2024 5:53 PM CDT) Trop T hs 23(H) <=14 ng/L Comment: Interpretive Data For further hscTnT resources including the diagnostic algorithm and an aid in interpretation, copy and paste this link: https://nrl.testcatalog.org/show/hsTrop Current Interpretive Data last revised 2020. Testing performed by: [address] [address] Trop T hs delta -2 ng/L MARY JANE Comment:Testing performed by : [address] [address] Trop T hs interp Insignificant MARY JANE Comment:Testing performed by : [address] [address] Blood 12/02/2024 5:53 PM CDT 12/02/2024 5:55 PM CDT us Gil Diez DO LAB BLOOD ORDERABLES Final Result Performing Organization Address City/[facility]/ZIP Co de Phone Number CERNER [address] [place] [employer] [place] [address] * POCT glucose (12/02/2024 4:25 PM CDT) [facility] Glucose, POC 195 70 - 199 mg/dL Comment:Testing performed by : [facility], [address] [place] [address]., [address] Blood 12/02/2024 4:25 PM CDT 12/02/2024 4:25 PM CDT Notinfile Unknown LAB POCT ORDERABLES - DEVICE F inal Result Performing Organization Address City/[facility]/ZIP Co de Phone Number [address] [address] * (ABNORMAL) Troponin T high-sensitivity series (baseline, 2hr, 4hr, 6hr) (12/02/2024 3:57 PM CDT) [facility] Trop T hs 25(H) <=14 ng/L Comment: Interpretive Data For further hscTnT resources including the diagnostic algorithm and an aid in interpretation, copy and paste this link: https://nrl.testcatalog.org/show/hsTrop Current Interpretive Data last revised 2020. Testing performed by: [facility], [address] [place] [address]., [address] Blood 12/02/2024 3:57 PM CDT 12/02/2024 4:11 PM CDT us Patrick Rice DO LAB BLOOD ORDERABLES Final Result [address] [place] [employer] [address] * eGFR (12/02/2024 3:57 PM CDT) [facility] eGFR >90 >=60 mL/min/1. 73 m2 Comment: [...] last reviewed 2021. Testing performed by: [address] [address] Blood 12/02/2024 3:57 PM CDT 12/02/2024 4:11 PM CDT Patrick Rice DO LAB BLOOD ORDERABLES Final Result MARY JANE [facility] [place] [address] * (ABNORMAL) Differential, auto (12/02/2024 3:57 PM CDT) Neutrophil abs 7.87(H) 1.50 - 6.50 K/cumm Comment:Testing performed by : [address] [address] Imm gran abs 0.05 0.00 - 0.10 K/cumm MARY JANE Comment:Testing performed by : [address] [address] Lymphocyte abs 1.99 0.80 - 3.30 K/cumm MARY JANE Comment:Testing performed by : [address] [address] Monocyte abs 0.54 0.20 - 0.80 K/cumm MARY JANE Comment:Testing performed by : [address] [address] Eosinophil abs 0.10 0.00 - 0.50 K/cumm [facility] Comment:Testing performed by : [address] [address] Basophil abs 0.03 0.00 - 0.10 K/cumm [facility] Comment:Testing performed by : [address] [address] Neutrophil pct 74.4 % [facility] Comment: Interpretive Data Percent cell count reference ranges are not reported, since discordance with absolute values may lead to misinterpretation of CBC data. Current Interpretive Data was last revised on 2017. Testing performed by: [address] [address] Imm gran pct 0.5 % [facility] Comment: Interpretive Data Percent cell count reference ranges are not reported, since discordance with absolute values may lead to misinterpretation of CBC data. Current Interpretive Data was last revised on 2017. Testing performed by: [address] [address] Lymphocyte pct 18.8 % [facility] Comment: Interpretive Data Percent cell count reference ranges are not reported, since discordance with absolute values may lead to misinterpretation of CBC data. Current Interpretive Data was last revised on 2017. Testing performed by: [address] [address] Monocyte pct 5.1 % [facility] Comment: Interpretive Data Percent cell count reference ranges are not reported, since discordance with absolute values may lead to misinterpretation of CBC data. Current Interpretive Data was last revised on 2017. Testing performed by: [address] [address] Eosinophil pct 0.9 % [facility] Comment: Interpretive Data Percent cell count reference ranges are not reported, since discordance with absolute values may lead to misinterpretation of CBC data. Current Interpretive Data was last revised on 2017. Testing performed by: [address] [address] Basophil pct 0.3 % [facility] Comment: Interpretive Data Percent cell count reference ranges are not reported, since discordance with absolute values may lead to misinterpretation of CBC data. Current Interpretive Data was last revised on 2017. Testing performed by: [facility], [address] [place] [address]., [address] Blood 12/02/2024 3:57 PM CDT 12/02/2024 4:14 PM CDT Patrick Rice DO LAB BLOOD ORDERABLES Final Result MARY JANE [address] [facility] [place] [address] * Pro B-type natriuretic peptide (12/02/2024 3:57 [...] Revised Date: 2017. Testing performed by: [address] [address] Blood 12/02/2024 3:57 PM CDT 12/02/2024 4:11 PM CDT Patrick Les Sousahu LAB BLOOD ORDERABLES Final Result MARY JANE [address] [facility] [place] [address] * (ABNORMAL) CBC with auto differential (12/02/2024 3:57 PM CDT) WBC 10.58(H) 3.80 - 9.90 K/cumm Comment:Testing performed by : [address] [address] Hgb 12.2 11.9 - 15.5 g/dL MARY JANE Comment:Testing performed by : [address] [address] Hct 37.6 35.6 - 45.5 % MARY JANE Comment:Testing performed by : [address] [address] Plt 263 150 - 400 K/cumm MARY JANE Comment:Testing performed by : [address] [address] MPV 10.2 9.1 - 12.3 fL MARY JANE Comment:Testing performed by : [address] [address] RBC 4.19 3.90 - 5.20 M/cumm MARY JANE Comment:Testing performed by : [address] [address] MCV 89.7 81.3 - 96.4 fL MARY JANE Comment:Testing performed by : [address] [address] MCH 29.1 27.1 - 33.3 pg MARY JANE PHAM Comment:Testing performed by : [address] [address] MCHC 32.4 32.3 - 35.7 g/dL MARY JANE PHAM Comment:Testing performed by : [address] [address] RDW CV 13.7 11.1 - 14.9 % MARY JANE PHAM Comment:Testing performed by : [address] [address] RDW SD 45.0 35.7 - 48.1 fL MARY JANE PHAM Comment:Testing performed by : [address] [address] NRBC abs 0.00 0.00 - 0.01 K/cumm MARY JANE PHAM Comment:Testing performed by : [address] [address] Blood 12/02/2024 3:57 PM CDT 12/02/2024 4:14 PM CDT Patrick Rice DO LAB BLOOD ORDERABLES Final Result MARY JANE [facility] [place] [address] * (ABNORMAL) Comprehensive metabolic panel (12/02/2024 3:57 PM CDT) Sodium 139 135 - 145 mmol/L Comment:Testing performed by : [address] [address] Potassium, pl 4.5 3.3 - 4.9 mmol/L MARY JANE PHAM Comment:Testing performed by : [address] [address] Chloride 101 97 - 110 mmol/L MARY JANE Comment:Testing performed by : [address] [address] CO2 26 22 - 32 mmol/L MARY JANE Comment:Testing performed by : [address] [address] Anion gap 12 2 - 15 mmol/L MARY JANE Comment:Testing performed by : [address] [address] BUN 17 6 - 25 mg/dL MARY JANE Comment:Testing performed by : [address], [address] Creatinine 0.60 0.60 - 1.10 mg/dL MARY JANE Comment:Testing performed by : [address] [address] Glucose 252(H) 70 - 199 mg/dL MARY [...] last revised 2022. Testing performed by: [address] [address] Calcium 9.8 8.5 - 10.3 mg/dL MARY JANE Comment:Testing performed by : [address] [address] Bilirubin, total 0.5 0.1 - 1.2 mg/dL MARY JANE Comment:Testing performed by : [address] [address] Protein, pl 7.8 6.5 - 8.5 g/dL MARY JANE Comment:Testing performed by : [address] [address] Albumin 4.0 3.5 - 5.0 g/dL MARY JANE Comment:Testing performed by : [address] [address] Alk phos 79 40 - 130 Units/L MARY JANE Comment:Testing performed by : [address] [address] ALT 23 7 - 45 Units/L MARY JANE Comment:Testing performed by : [address] [address] AST 22 10 - 45 Units/L MARY JANE Comment:Testing performed by : [address] [address] Blood 12/02/2024 3:57 PM CDT 12/02/2024 4:11 PM CDT Patrick Rice DO LAB BLOOD ORDERABLES Final Result MARY JANE [facility] [address] [facility] [place] [address] * XR Chest 1 Vw Portable (If [...] Wilfrid Valdez M.D. MZ: FAUSTINA Report ID: [id number] Reading Location: [id number] Procedure Note Wilfrid Valdez MD - 12/02/2024 [...] Wilfrid Valdez M.D. MZ: MZ Report ID: [id number] Reading Location: [place] [address] Patrick Rice DO IMG XR PROCEDURES Final Res ult * ECG 12 lead (12/02/2024 3:33 PM CDT) Ventricular Rate EKG/Min 78 BPM [facility] Atrial Rate 78 BPM [facility] AL-Interval (MSEC) 122 ms [facility] QRS-Interval (MSEC) 82 ms [facility] QT-Interval (MSEC) 380 ms [facility] QTc 433 ms [facility] P [place] 7 degrees [facility] R [place] 3 degrees [facility] T [place] 11 degrees [facility] Diagnosis Normal sinus rhythm Normal ECG When compared with ECG of 01-JUL-2024 14:05, No significant change Confirmed by SULTAN MARTINEZ M.D. ([id number]) on 12/03/2024 4:50:33 PM [facility] 12/02/2024 3:33 PM CDT 12/03/2024 4:50 PM CDT us Patrick Rice DO ECG ORDERABLES Final Resul t [facility] * Dexa Axial Skeleton Bone Density 1 or 2 Site (08/02/2022 10:53 AM CDT) Anatomical Region Laterality Modality Body N/A Radiographic Lizeth ging Narrative 08/02/2022 3:34 PM CDT Patient Name: Mohsen Marques Date of : 1955 Date of scan: 08/02/2022 Bone mineral density was performed on a HoloDokDok Discovery Densitometer. Based on machine cross-calibration and [...] by the International Society of Clinical Densitometry. [id number] us Khris Arthur MD IMG DXA PROCEDURES [...] agrees with it. ACC# Date Time Exam [id number] Aug 19, 2016 14:27:00 [facility] [address]375 Diag Mamm, inc CAD, unilat L Technologist(s): Carla Harris; ; [id number] Aug 19, 2016 15:39:00 [facility] 97493 Breast US unilateral, ltd L ACC# Date Time Exam [id number] Aug 19, 2016 14:27:00 [facility] 22967 DiaTORCH.sh Mamm, inc CAD, unilat L Technologist(s): Carla Harris; ; [id number] Aug 19, 2016 15:39:00 [facility] [address] Breast US unilateral, ltd L EXAMINATION: LEFT [...] document has been electronically signed by: ANTHONY ASRABIA M.D. on Aug 19 2016 4:20P [id number] Procedure Note Miscellaneous, Not In File / Provider, MD Tyler - 09/17/2016 ATNHONY SARABIA M.D. JUDY RINCON M.D. FINAL REPORT The radiology attending physician has personally reviewed this study, and has reviewed and/or edited this written report and agrees with it. ACC# Date Time Exam [id number] Aug 19, 2016 14:27:00 [facility] [address]2767 Diag Mamm, inc CAD, unilat L Technologist(s): Carla Harris; ; [id number] Aug 19, 2016 15:39:00 [facility] 47010 Breast US unilateral, ltd L ACC# Date Time Exam [id number] Aug 19, 2016 14:27:00 [facility] [address] Diag Mamm, inc CAD, unilat L Technologist(s): Carla Harris; ; [id number] Aug 19, 2016 15:39:00 [facility] [address] Breast US unilateral, ltd L EXAMINATION: LEFT [...] SARABIA M.D. on Aug 19 2016 4:20P [id number] us Not In File Miscellaneous IMG MAMMO PROCEDURES F inal Result from Last 3 Months or Most Recently Relevant to Health Maintenance Insurance [employer] [facility] MEDICARE ADVANTAGE [facility] MEDICARE ADVANTAGE IDPA [employer] [facility] MEDICARE ADVANTAGE Advance Directives For more information, please contact: [phone] Documents on File Type Date Recorded Patient Patent Litigation Associate Expl anation ADVANCE DIRECTIVE 12/23/2021 2:49 PM Power of Channel Rebuilder-Medical ADVANCE DIRECTIVE 12/23/2021 2:49 PM Living Will [...] on File Name Relationship Healthcare Agent [facility] p Communication Yunior Marques Daughter Health Care Agent Jimmie Marques Spouse First Alternate Health Care Agent Care Teams Alpine Patroller Relationship Specialty Start Date End Date Justen Gale MD [address] [place] [address] PCP - General 10/09/17 Liu Jerez MD Consulting Physician Gastroenterology 07/28/17 [place] [address] [facility] [id number] [place] [address] Consulting Physician Pulmonary Disease 08/03/17 Khris Arthur MD [address] [facility] [facility] [address] [place] [address] Medical Oncologist/Drafting Supervisor Medical Oncology 10/23/17 [place] [address] [facility] [address] [place] [address] Surgeon Orthopedic Surgery 10/23/17 [place] [address] [facility] [address] [place] [address] Consulting Physician Pain Management 10/23/17 [place] [address] [facility] [address] [place] [address] Referring Physician General Surgery 01/26/18 [place] [address] [facility] [address] [place] [address] Consulting Physician Neurology 01/26/18
--- OUTSIDE RECORDS SUMMARY | 2025-02-25 03:50 | XMS_ITS | Encounter Summary ---
Author Organization [facility] Address [address] [place] [address] Phone Care Team Providers Care Chief Commercial Officer Name Role Phone Justen Gale MD Primary Care Provider David Roberts APRN, ACCOUNT SPECIALIST Unavailable [phone] Annel Rod MD Unavailable Reason for Visit * Reason Comments Medication Refill Encounter Details Date Type Department Care Team (Late st Contact Info) Description 03/05/2023 [facility]ill [facility] #2 [place] [address] Pili Elkins APRN, ACCOUNT SPECIALIST #[address] [address] Medication Refill Social History Tobacco [...] discontinued on 10/19/2022 by Justen Gale MD PING PACKER documented in this encounter Plan of Treatment Upcoming Encounters Date Type Department Care Team (Late st Contact Info) Description 03/19/2025 2:00 PM SHIPPING PACKER Office Visit [facility] - Endocrinology - [place] #2 [place] [address] Annel Rod MD #2 [facility] [address] [place] [address] 05/29/2025 1:30 PM SHIPPING PACKER Office Visit [facility] Medical Group - Family Medicine - [place] #2 [place] [address] Justen Gale MD #2 [facility] [address] [place] [address] documented as of this encounter Visit Diagnoses [...] as of this encounter Care Teams Chief Commercial Officer Relationship Specialty Start Date End Date Justen Gale MD #2 [facility] [address] [place] [address] PCP - General Family Medicine 10/17/17 David Roberts APRN, ACCOUNT SPECIALIST #2 [place] [address] Nurse Practitioner Advanced Practice Nurse 01/31/22 Annel Rod MD #[address] [address] Consulting Physician Endocrinology 07/01/22 documented as of this encounter
--- OUTSIDE RECORDS SUMMARY | 2025-02-25 03:50 | XMS_ITS | Encounter Summary ---
Author Organization [facility] Address [address] [place] [address] Phone Care Team Providers Care Community Health Nursing Director Name Role Phone Justen Gale MD Primary Care Provider [phone] David Roberts APRN, DIE TRY OUT WORKER Unavailable [phone] Annel Rod MD Unavailable Reason for Visit * Reason Comments Medication Refill Encounter Details Date Type Department Care Team (Late st Contact Info) Description 03/02/2023 Refill [facility] #2 [place] [address] Justen Gale MD #[address] [address] Medication Refill Social History Tobacco Use Types [...] Tamika Villarreal RN - 03/02/2023 8:51 AM SECURITY ROVER Medication failed the protocol, provider to review [...] Dept 01/17/23 Office Visit Catrina Quiñonez MD [facility] 09/16/22 Office Visit Pili Elkins APRN, [facility] 07/05/22 Office Visit Pili Elkins APRN, NETTA [facility] 05/02/22 Office Visit Justen Gale MD [facility] 03/03/22 Office Visit Pili Elkins APRN, NETTA [facility] Showing recent visits within past 365 days and meeting all other requirements Future Appointments No visits were found meeting these conditions. Showing future appointments within next 90 days and meeting all other requirements RITY ROVER documented in this encounter Plan of Treatment Upcoming Encounters Date Type Department Care Team (Late st Contact Info) Description 03/19/2025 2:00 PM SECURITY ROVER [facility] Visit [facility] - Endocrinology - [place] #2 [place] [address] Annel Rod MD #[address] [address] 05/29/2025 1:30 PM SECURITY ROVER Office Visit [facility] - Family [facility] #2 [place] [address] Justen Gale MD #2 [facility] [address] [place] [address] documented as of this encounter Visit Diagnoses Not on filedocumented in this encounter Additional Health Concerns Infection Onset Date Last Indicated Resolved Time COVID - 19 08/01/2024 08/01/2024 08/01/2024 3:20 PM CDT Respiratory Rule-Out 11/18/2024 11/18/2024 025 7:18 AM CDT Assessment Noted Time PHQ-9 Depression Total Score: 8 01/18/20 23 2:24 PM CDT documented as of this encounter Care Teams Community Health Nursing Director Relationship Specialty Start Date End Date Justen Gale MD #[address] [address] PCP - General Family Medicine 10/17/17 David Roberts APRN, DIE TRY OUT WORKER #[address] [place] [address] Nurse Practitioner Advanced Practice Nurse 01/31/22 Annel Rod MD #[address] [address] Consulting Physician Endocrinology 07/01/22 documented as of this encounter
--- OUTSIDE RECORDS SUMMARY | 2025-02-25 03:50 | XMS_ITS | Encounter Summary ---
Author Organization [facility] Address [address] [place] [address] Phone Care Team Providers Care Mds Coordinator Name Role Phone Justen Gale MD Primary Care Provider [phone] David Roberts APRN, MANAGER DIESEL Unavailable [phone] Annel Rod MD Unavailable Reason for Visit * Reason Comments Medication Refill Encounter Details Date Type Department Care Team (Late st Contact Info) Description 03/13/2021 Refill [facility] [address] [place] [address] Justen Gale MD #[address] [address] Medication Refill Social History Tobacco [...] COVID-19? No / Unsure 03/02/2021 5:05 PM BEE BREEDER documented as of this encounter Plan of Treatment Upcoming Encounters Date Type Department Care Team (Late st Contact Info) Description 03/19/2025 2:00 PM BEE BREEDER Office Visit [facility] Medical [facility] - Endocrinology [facility] #[address] [place] [address] Annel Rod MD #[address] [address] 05/29/2025 1:30 PM BEE BREEDER Office Visit [facility] Family Medicine [facility] #2 [place] [address] Justen Gale MD #[address] [address] documented as of this encounter Visit Diagnoses Not on filedocumented in this encounter Additional Health Concerns Infection Onset Date Last Indicated Resolved Time COVID - 19 08/01/2024 08/01/2024 08/01/2024 3:20 PM CDT Respiratory Rule-Out 11/18/2024 11/18/2024 025 7:18 AM CDT Assessment Noted Time PHQ-9 Depression Total Score: 0 07/21/19 21 3:00 PM CDT documented as of this encounter Care Teams Mds Coordinator Relationship Specialty Start Date End Date Justen Gale MD #[address] [address] PCP - General Family Medicine 10/17/17 David Roberts, SEMICONDUCTOR PACKAGES PLATEMAKER, MANAGER DIESEL #2 [place] [address] Nurse Practitioner Advanced Practice Nurse 01/31/22 Annel Rod MD #[address] [address] Consulting Physician Endocrinology 07/01/22 documented as of this encounter
--- OUTSIDE RECORDS SUMMARY | 2025-02-25 03:50 | XMS_ITS | Encounter Summary ---
Author Organization [facility] Address [address] [place] [address] Phone Care Team Providers Care Political Theory Professor Name Role Phone Justen Gale MD Primary Care Provider [phone] David Roberts APRN, CAFE TEAM MEMBER Unavailable [phone] Annel Rod MD Unavailable Reason for Visit * Reason Comments Medication Refill Encounter Details Date Type Department Care Team (Late st Contact Info) Description 02/07/2023 Refill [facility] Medicine [facility] #[address] [place] [address] Pili Elkins APRN, CAFE TEAM MEMBER #[address] [address] Medication Refill Social History Tobacco [...] st Contact Info) Description 03/19/2025 2:00 PM MACHINE SCALLOP CUTTER Office Visit [facility] Medical Group - Endocrinology [facility] #2 [place] [address] Annel Rod MD #[address] [address] 05/29/2025 1:30 PM MACHINE SCALLOP CUTTER Office Visit [facility] Medical Group - Family Medicine [facility] #[address] [place] [address] Justen Gale MD #2 [facility] [address] [place] [address] documented as of this encounter Visit Diagnoses [...] End Date Justen Gale MD #2 [facility] [address] [place] [address] PCP - General Family Medicine 10/17/17 David Roberts APRN, CAFE TEAM MEMBER #2 [place] [address] Nurse Practitioner Advanced Practice Nurse 01/31/22 Annel Rod MD #2 [facility] [address] [place] [address] Consulting Physician Endocrinology 07/01/22 documented as of this encounter
--- OUTSIDE RECORDS SUMMARY | 2025-02-25 03:50 | XMS_ITS ---
Author Organization [facility] Address [address] [place] [address] Care Team Providers Care Weighmaster Name Role Phone Justen Gale MD Primary Care Provider [phone] Active Problems Problem Noted Date Diagnosed Date [...]
--- OUTSIDE RECORDS SUMMARY | 2025-02-25 03:50 | XMS_ITS | Encounter Summary ---
Author Organization [facility] Address [address] [place] [address] Phone Care Team Providers Care Oven Operator Automatic Name Role Phone Justen Gale MD Primary Care Provider David Roberts APRN, ENERGY CONSERVATION ENGINEER Unavailable [phone] Annel Rod MD Unavailable Reason for Visit * Reason Comments Medication Refill Encounter Details Date Type Department Care Team (Late st Contact Info) Description 10/24/2022 Refill [facility] #2 [place] [address] Pili Elkins APRN, ENERGY CONSERVATION ENGINEER #[address] [address] Medication Refill Social History [...] st Contact Info) Description 03/19/2025 2:00 PM TUMBLER PLATER Office Visit [facility] Endocrinology [facility] #[address] [place] [address] Annel Rod MD #[address] [address] 05/29/2025 1:30 PM TUMBLER PLATER Office Visit [facility] Family Medicine [facility] #2 [place] [address] Justen Gale MD #[address] [address] documented as of this encounter Visit Diagnoses [...] as of this encounter Care Teams Oven Operator Automatic Relationship Specialty Start Date End Date Justen Gale MD #[address] [address] PCP - General Family Medicine 10/17/17 David Roberts APRN, ENERGY CONSERVATION ENGINEER #2 [place] [address] Nurse Practitioner Advanced Practice Nurse 01/31/22 Annel Rod MD #[address] [address] Consulting Physician Endocrinology 07/01/22 documented as of this encounter
--- OUTSIDE RECORDS SUMMARY | 2025-02-25 03:50 | XMS_ITS | Encounter Summary ---
Author Organization [facility] Address [address] [place] [address] Phone Care Team Providers Care Supervisor Pleating Name Role Phone Justen Gale MD Primary Care Provider [phone] David Roberts APRN, DIP DYER Unavailable [phone] Annel Rod MD Unavailable Reason for Visit * Reason Onset Date Comments Form Completion 02/24/2025 Encounter Details Date Type Department Care Team (Late st Contact Info) Description 02/24/2025 Telephone [facility] [address] [place] [address] Justen Gale MD #[address] [address] Form Completion Social History Tobacco Use Types [...] Miscellaneous Notes * Telephone Encounter - Fabiola Daugherty N - 02/24/2025 1:39 PM CST Please call Karly (relationship to patient self) back at primary phone number [phone] regarding above referenced patient. Secondary phone number is na. Call is concerning form filled out for Juan. She is asking if the office has the forms to be filled out so that she doesn't have to drive 30 minutes to drop it off. She stated that she needs it so that they will not shut off her power if she gets behind or if theres and outage it can be turned back on [place] as she has a CPAP. The Juan kiran is in her name for the address on file. Account number is [id number]. Please MyChart message once it has been sent to Jaun. Patient's PCP is Justen Gale MD. Thank you. MENT MANAGER documented in this encounter Plan of Treatment Upcoming Encounters Date Type Department Care Team (Late st Contact Info) Description 03/19/2025 2:00 PM DOCUMENT MANAGER Office Visit [facility] Endocrinology [facility] #2 [facility] [place] [address] Annel Rod MD #[address] [place] [address] 05/29/2025 1:30 PM DOCUMENT MANAGER Office Visit [facility] Family Medicine [facility] #2 [place] [address] Justen Gale MD #2 [facility] [address] [place] [address] documented as of this encounter Visit Diagnoses Not on filedocumented in this encounter Additional Health Concerns Assessment Noted Time PHQ-9 Depression Total Score: 0 08/02/19 25 1:09 PM CDT documented as of this encounter Care Teams Supervisor Pleating Relationship Specialty Start Date End Date Justen Gale MD #2 [facility] [address] [place] [address] PCP - General Family Medicine 10/17/17 David Roberts APRN, DIP DYER #2 [facility] [place] [address] Nurse Practitioner Advanced Practice Nurse 01/31/22 Annel Rod MD #[address] [facility] [address] [address] Consulting Physician Endocrinology 07/01/22 documented as of this encounter
--- OUTSIDE RECORDS SUMMARY | 2025-02-25 03:50 | XMS_ITS | Encounter Summary ---
Author Organization [facility] Address [address] [place] [address] Phone Care Team Providers Care Information Writer Name Role Phone Justen Gale MD Primary Care Provider [phone] David Roberts APRN, FABRICATION INSPECTOR Unavailable [phone] Annel Rod MD Unavailable Reason for Visit * Reason Comments Medication Refill Encounter Details Date Type Department Care Team (Late st Contact Info) Description 02/07/2023 Refill [facility] Family Medicine [facility] #2 [place] [address] Catrina Quiñ[place] [address] [place] [phone] Medication Refill Social History Tobacco Use Types [...] Dept 01/17/23 Office Visit Catrina Quiñonez MD [facility] [place] 09/16/22 Office Visit Pili Elkins APRN, CNP [facility] 07/05/22 Office Visit Pili Elkins APRN, NETTA [facility] 05/02/22 Office Visit Justen Gale MD [facility] 03/03/22 Office Visit Pili Elkins APRN, [facility] Showing recent visits within past 365 days and meeting all other requirements Future Appointments No visits were found meeting these conditions. Showing future appointments within next 90 days and meeting all other requirements documented in this encounter Plan of Treatment Upcoming Encounters Date Type Department Care Team (Late st Contact Info) Description 03/19/2025 2:00 PM SALES EXECUTIVE Office Visit [facility] - Endocrinology - [place] #[address] [place] [address] Annel Rod MD #[address] [address] 05/29/2025 1:30 PM SALES EXECUTIVE Office Visit [facility] Family Medicine [facility] #2 [place] [address] Justen Gale MD #[address] [address] documented as of this encounter Visit Diagnoses Not on filedocumented in this encounter Additional Health Concerns Infection Onset Date Last Indicated Resolved Time COVID - 19 08/01/2024 08/01/2024 08/01/2024 3:20 PM CDT Respiratory Rule-Out 11/18/2024 11/18/2024 025 7:18 AM CDT Assessment Noted Time PHQ-9 Depression Total Score: 8 01/18/20 23 2:24 PM CDT documented as of this encounter Care Teams Information Writer Relationship Specialty Start Date End Date Justen Gale MD #[address] [address] PCP - General Family Medicine 10/17/17 David Roberts APRN, FABRICATION INSPECTOR #[address] [place] [address] Nurse Practitioner Advanced Practice Nurse 01/31/22 Annel Rod MD [address] [place] [address] Consulting Physician Endocrinology 07/01/22 documented as of this encounter
--- OUTSIDE RECORDS SUMMARY | 2025-02-25 03:50 | XMS_ITS | Encounter Summary ---
Author Organization [facility] Address [address] [place] [address] Phone Care Team Providers Care Microgrinder Operator Name Role Phone Justen Gale MD Primary Care Provider David Roberts APRN, STAFF COMBAT INFORMATION CENTER OFFICER Unavailable [phone] Annel Rod MD Unavailable Reason for Visit * Reason Onset Date Comments Sore Throat 09/02/2024 Encounter Details Date Type Department Care Team (Late st Contact Info) Description 09/02/2024 Nurse Triage [facility] [address] [place] [address] Justen Gale MD #[address] [address] Sore Throat Social History Tobacco Use Types Packs/Day Years Used Date Smoking Tobacco: Never Smokeless Tobacco: Never Alcohol Use Standard Drinks/Week Comments No 0 (1 standard drink = 0.6 oz pur e alcohol) [facility] Utilities Answer Date Recorded In the past 12 months has [employer] electric, gas, oil, or water company [...] How often do you attend chur or mandaen services? More than 4 times [...] 0 07/23 [facility] of Occupat ional Health - Occupational Stress [...] Pharmacy, medications, and allergies reviewed. Discussed utilizing [employer] to: discuss if they would prefer a [employer] message or phone call response - See [...] standing order available * Telephone Encounter - Sbarina Ortega - 09/02/2024 2:46 PM CDT Symptoms: Sore Throat, Mouth Sores or Ulcers - Caller Reports Outcome: Transfer to regional account executive queue Reason: Caller denied all higher acuity questions The caller accepted this outcome. Caller Denied: * Struggling for each breath (severe trouble breathing) * Can't swallow saliva (drooling) documented in this encounter Plan of Treatment Upcoming Encounters Date Type Department Care Team (Late st Contact Info) Description 03/19/2025 2:00 PM VALIDATION CONSULTANT Office Visit [facility] Medical [facility] Endocrinology - [place] #[address] [place] [address] Annel Rod MD #[address] [place] [address] 05/29/2025 1:30 PM VALIDATION CONSULTANT Office Visit [facility] Family Medicine [facility] #[address] [place] [address] Justen Gale MD #[address] [address] documented as of this encounter Visit Diagnoses Not on filedocumented in this encounter Additional Health Concerns Infection Onset Date Last Indicated Resolved Time Respiratory Rule-Out 11/18/2024 11/18/2024 025 7:18 AM CDT Assessment Noted Time PHQ-9 Depression Total Score: 0 08/02/19 25 1:09 PM CDT documented as of this encounter Care Teams Microgrinder Operator Relationship Specialty Start Date End Date Justen Gale MD #[address] [address] PCP - General Family Medicine 10/17/17 David Roberts APRN, STAFF COMBAT INFORMATION CENTER OFFICER #[address] [place] [address] Nurse Practitioner Advanced Practice Nurse 01/31/22 Annel Rod MD #[address] [address] Consulting Physician Endocrinology 07/01/22 documented as of this encounter
--- OUTSIDE RECORDS SUMMARY | 2025-02-25 03:50 | XMS_ITS | Patient Health Record ---
Author Organization [facility] Address [address] [place] [address] Care Team Providers Care Technician Helper Instrument Name Role Phone Yo DURÁN, Lavonne Primary Care Provider Unavail able Reason For Referral No Information Plan Of Treatment No Information Insurance Providers Payer Name Payer Address Payer Phone Subscriber Number Group Number Insured Name Patient Relationship to Insured Coverage Start Date Coverage End Date [facility] [employer] [address] [address] [place], [place] [id number] Karly Marques Self - patient is the insured
--- OUTSIDE RECORDS SUMMARY | 2025-02-25 03:50 | XMS_ITS | Encounter Summary ---
Author Organization [facility] Address [address] [place] [address] Phone Care Team Providers Care Channeler Runner Name Role Phone Lavonne Hathaway MD Primary Care Provider [phone] Liu Jerez MD Unavailable [phone] Albert Corbin MD Unavailable [phone] Justen Gale MD Primary Care Provider [phone] Lavonne Hathaway MD Primary Care Provider + [phone] Justen Gale MD Primary Care Provider [phone] Khris Arthur MD Unavailable [phone] Ko Melendez MD Unavailable [phone] John Paul Moyer MD Unavailable [phone] Annel Rod MD Unavailable Anali MARSHALL MD, Carlos M. Unavailable [phone] Encounter Details Date Type Department Care Team ([facility] Contact Info) Description 05/15/2017 Orders Only [facility] Scanning, Provider Social History Tobacco Use Types Packs/Day Years Used Date Smoking Tobacco: Former Alcohol Use Standard Drinks/Week Comments No 0 (1 standard drink = 0.6 oz pur e alcohol) Comments Unknown Sex and Gender Information Value Date Recorded Sex Assigned at Not on file Legal Sex Female 12:24 AM CASING IN LINE SETTER Gender Identity Not on file Sexual [...] COVID: Recovered 02/10/2022 02/10/2022 06/10/2022 3:05 AM CASING IN LINE SETTER Exposure, COVID-19 Comment:Added automatically based on COVID19 lab answers indicating exposure risk 02/11/2022 02/11/2022 02/15/2022 9:06 AM C DT COVID: Suspected 05/14/2022 05/14/2022 05/14/2022 10:41 AM CASING IN LINE SETTER COVID: Suspected 06/07/2022 06/07/2022 06/07/2022 12:28 PM CASING IN LINE SETTER COVID: Suspected 06/21/2022 06/21/2022 06/21/2022 2:12 AM CASING IN LINE SETTER COVID: Suspected 10/05/2022 10/05/2022 10/05/2022 7:40 [...] Runner Relationship Specialty Start Date End Date Lavonne Hathaway MD [address] [place] [address] [place] [address] PCP - General 08/16/16 08/17/17 Justen Gale MD [address] [place] [address] [place] [address] PCP - General 08/18/17 08/22/17 Lavonne Hathaway MD [address] [place] [address] [place] [address] PCP - General Family Medicine 08/23/17 10/08/17 Justen Gale MD [address] [place] [address] [place] [address] PCP - General 10/09/17 Liu Jerez MD [address] [place] [address] [place] [address] Consulting Physician Gastroenterology 07/28/17 [place] [address] [facility] [address] [place] [address] Consulting Physician Pulmonary Disease 08/03/17 Khris Arthur MD [address] [facility] [address] [place] [address] Medical Oncologist/8Th Grade Mathematics Teacher Medical Oncology 10/23/17 [place] [address] [facility] [address] [place] [address] Surgeon Orthopedic Surgery 10/23/17 [place] [address] [facility] [address] [place] [address] Consulting Physician Pain Management 10/23/17 [place] [address] [facility] [address] [place] [address] Referring Physician General Surgery 01/26/18 [place] [address] [facility] [address] [place] [address] Consulting Physician Neurology 01/26/18 documented as of this encounter
--- OUTSIDE RECORDS SUMMARY | 2025-02-25 03:50 | XMS_ITS | Encounter Summary ---
Author Organization [facility] Address [address] [place] [address] Phone Care Team Providers Care Patient Ambassador Name Role Phone Justen Gale MD Primary Care Provider [phone] David Roberts APRN, NARROW FABRIC CALENDERER Unavailable [phone] Annel Rod MD Unavailable Reason for Visit * Reason Onset Date Comments involuntary movement 02/24/2025 Encounter Details Date Type Department Care Team (Late st Contact Info) Description 02/24/2025 Nurse Triage [facility] [address] [place] [phone] Justen Gale MD #[address] [address] involuntary movement Social History Tobacco Use Types Packs/Day Years Used Date Smoking Tobacco: Never Smokeless Tobacco: Never Alcohol Use Standard Drinks/Week Comments No 0 (1 standard drink = 0.6 oz pur e alcohol) [facility] Utilities Answer Date Recorded In the past 12 months has [employer], gas, oil, or water company threatened [...] Total Score - Questions 1-9 0 07/23 [facility] [...] in a residential (including now)? No 08/06/2024 AUDIT-C Answer Date [...] encounter Miscellaneous Notes * Telephone Encounter - Yesi Flores RN - 02/24/2025 11:01 PM CST SITUATION: 69 y.o. with involuntary movements BACKGROUND: Patient contacting PCP office. Patient stating that she is having full body involuntary movements. Stating her neck is contorting,hands moving. Legs jerking. Headache. Keeps licking her lips. Stating she took her Methotrexate around 9pm, began symptoms approximately 30 minutes after ingestion. Per chart review, last office visit 11/25/24 ASSESSMENT: Symptom Description / Location: Involuntary movements Aching back Searching for words Involuntary moving lips/ licking lips Headache: back of head and neck Denies fever. RECOMMENDATION: Caller agreeable to highest disposition listed: Go to ED/UCC Now (or PCP Triage). Care advice provided per triage guideline. Caller verbalized understanding. - Reason for Disposition: Patient sounds very sick or weak to the triager . Protocols Used: Neurologic Djhwfxp-M-CP See care advice and disposition for Guideline. First positive answer recorded, all responses to prior questions were negative. If symptoms increase, change or if new symptoms develop, call your health care provider or call back. Recommendations were based on caller information and is not a diagnosis. Verified and reviewed all triage information with caller. GER FINANCE documented in this encounter Plan of Treatment Upcoming Encounters Date Type Department Care Team (Late st Contact Info) Description 03/19/2025 2:00 PM MANAGER FINANCE Office Visit [facility] Medical [facility] - Endocrinology - [place] [address] [place] [address] Annel Rod MD #[address] [facility] [address] [place] [address] 05/29/2025 1:30 PM MANAGER FINANCE Office Visit [facility] - Family Medicine - [place] [address] [place] [address] Justen Gale MD #[address] [facility] [address] [place] [address] documented as of this encounter Visit Diagnoses Not on filedocumented in this encounter Additional Health Concerns Assessment Noted Time PHQ-9 Depression Total Score: 0 08/02/19 25 1:09 PM CDT documented as of this encounter Care Teams Patient Ambassador Relationship Specialty Start Date End Date Justen Gale MD #[address] [address] PCP - General Family Medicine 10/17/17 David Roberts APRN, NARROW FABRIC CALENDERER [address] [place] [address] Nurse Practitioner Advanced Practice Nurse 01/31/22 Annel Rod MD #[address] [address] Consulting Physician Endocrinology 07/01/22 documented as of this encounter
--- OUTSIDE RECORDS SUMMARY | 2025-02-25 03:50 | XMS_ITS | Encounter Summary ---
Author Organization [facility] Address [address] [place] [address] Phone Care Team Providers Care Title Assistant Name Role Phone Justen Gale MD Primary Care Provider [phone] David Roberts APRN, DINING HOST Unavailable [phone] Annel Rod MD Unavailable Reason for Visit * Reason Onset Date Comments Breathing Problem 08/07/2024 Muscle Pain 08/07/2024 Encounter Details Date Type Department Care Team (Late st Contact Info) Description 08/07/2024 Nurse Triage [facility] [address] [place] [address] Justen Gale MD #[address] [address] Breathing Problem; Muscle Pain Social History Tobacco Use Types Packs/Day Years Used Date Smoking Tobacco: Never Smokeless Tobacco: Never Alcohol Use Standard Drinks/Week Comments No 0 (1 standard drink = 0.6 oz pur e alcohol) [facility] Utilities Answer Date Recorded In [...] 1-9 0 07/23 [facility] - Occupational Stress Questionnaire [...] any time in the past 12 m [facility], were you homeless or living [...] She reports this was discussed with the lead front desk agent and provider was to [...] Encouraged caller to bring cell phone and insole tack puller hand to contact EMS 911 if symptoms [...] (e.g., disoriented, slurred speech) Protocols used: Breathing Aeesuwutrk-B-WH * Telephone Encounter - Neha Tomlinson - 08/07/2024 1:30 PM CDT Symptoms: Altered Mental Status, Body Aches, Breathing Trouble Outcome: Warm transfer to an emergent RN NOW! Reason: Trouble walking The caller accepted this outcome. documented in this encounter Plan of Treatment Upcoming Encounters Date Type Department Care Team (Late st Contact Info) Description 03/19/2025 2:00 PM ARTIFICIAL FLOWERS STARCHER Office Visit [facility] Medical [facility] - Endocrinology - [place] [address] [place] [address] Annel Rod MD #2 [facility] [address] [place] [address] 05/29/2025 1:30 PM ARTIFICIAL FLOWERS STARCHER Office Visit [facility] Medical [facility] - Family Medicine [facility] [address] [place] [address] Justen Gale MD #2 [facility] [address] [place] [address] documented as of this encounter Visit Diagnoses Not on filedocumented in this encounter Additional Health Concerns Infection Onset Date Last Indicated Resolved Time Respiratory Rule-Out 11/18/2024 11/18/2024 025 7:18 AM CDT Assessment Noted Time PHQ-9 Depression Total Score: 0 08/02/19 25 1:09 PM CDT documented as of this encounter Care Teams Title Assistant Relationship Specialty Start Date End Date Justen Gale MD #2 [facility] [address] [place] [address] PCP - General Family Medicine 10/17/17 David Roberts APRN, DINING HOST [address] [place] [address] Nurse Practitioner Advanced Practice Nurse 01/31/22 Annel Rod MD #[address] [address] Consulting Physician Endocrinology 07/01/22 documented as of this encounter
--- NOTE | 2025-02-25 03:56 | ECG_ITS ---
Test Date: 2025-02-25 04:20:35 Measurements Intervals [place] Rate: 81 P: 42 IA: 123 QRS: 7 QRSD: 90 T: 55 QT: 365 QTc: 426 Interpretive Statements SINUS RHYTHM NONSPECIFIC T-WAVE ABNORMALITY Compared to ECG 02/03/2025 13:19:36 T-wave abnormality now present Electronically Signed On 02-25-2025 06:40:15 HAND QUILTER by Delicia Bautista M.D.
--- OUTSIDE RECORDS SUMMARY | 2025-02-25 04:11 | XMS_ITS | Encounter Summary ---
Author Organization [facility] Address [address] [place] [address] Phone Care Team Providers Care Plywood Stock Grader Name Role Phone Justen Gale MD Primary Care Provider [phone] David Roberts APRN, SAP CONSULTANT Unavailable [phone] Annel Rod MD Unavailable Reason for Visit * Reason Onset Date Comments involuntary movement 02/24/2025 Encounter Details Date Type Department Care Team (Late st Contact Info) Description 02/24/2025 Nurse Triage [facility] [address] [place] [phone] Justen Gale MD #[address] [address] involuntary movement Social History Tobacco Use Types Packs/Day Years Used Date Smoking Tobacco: Never Smokeless Tobacco: Never Alcohol Use Standard Drinks/Week Comments No 0 (1 standard drink = 0.6 oz pur e alcohol) [facility] Utilities Answer Date Recorded In the past 12 months has [employer], gas, oil, or water company threatened [...] How often do you attend chur or moravian services? More than 4 times [...] Score - Questions 1-9 0 07/23 [facility] [...] in the past 12 m [facility], were you homeless or living in [...] to the triager . Protocols Used: Neurologic Iqpognw-R-GR See care advice and disposition for Guideline. First positive answer recorded, all responses to prior questions were negative. If symptoms increase, change or if new symptoms develop, call your health care provider or call back. Recommendations were based on caller information and is not a diagnosis. Verified and reviewed all triage information with caller. NESS RISK CONSULTANT documented in this encounter Plan of Treatment Upcoming Encounters Date Type Department Care Team (Late st Contact Info) Description 03/19/2025 2:00 PM BUSINESS RISK CONSULTANT Office [facility] Medical [facility] - Endocrinology - [place] [address] [place] [address] Annel Rod MD #2 [facility] [address] [place] [address] 05/29/2025 1:30 PM BUSINESS RISK CONSULTANT Office Visit [facility] - Family Medicine - [place] [address] [place] [address] Justen Gale MD #2 [facility] [address] [place] [address] documented as of this encounter Visit Diagnoses Not on filedocumented in this encounter Additional Health Concerns Assessment Noted Time PHQ-9 Depression Total Score: 0 08/02/19 25 1:09 PM CDT documented as of this encounter Care Teams Plywood Stock Grader Relationship Specialty Start Date End Date Justen Gale MD #[address] [address] PCP - General Family Medicine 10/17/17 David Roberts APRN, SAP CONSULTANT [address] [place] [address] Nurse Practitioner Advanced Practice Nurse 01/31/22 Annel Rod MD #[address] [address] Consulting Physician Endocrinology 07/01/22 documented as of this encounter
--- OUTSIDE RECORDS SUMMARY | 2025-02-25 04:11 | XMS_ITS | Encounter Summary ---
Author Organization [facility] Address [address] [place] [address] Phone Care Team Providers Care Client Services Account Manager Name Role Phone Justen Gale MD Primary Care Provider David Roberts APRN, SUPERVISOR WET POUR Unavailable [phone] Annel Rod MD Unavailable Reason for Visit * Reason Onset Date Comments Medication Refill 08/06/2020 Encounter Details Date Type Department Care Team (Late st Contact Info) Description 08/06/2020 [facility]ill [facility] [address] [place] [phone] Justen Gale MD #[address] [address] Medication Refill Social History Tobacco Use Types [...] elevated [facility] Pili [facility] APN, SUPERVISOR WET POUR 2 months ago Increased urinary frequency [facility] Pili Mueller APN, SUPERVISOR WET POUR 5 months ago Urinary frequency [facility] Pili Mueller APN, SUPERVISOR WET POUR 8 months ago Type 2 diabetes mellitus with diabetic polyneuropathy, with long- term current use of insulin (HCC) [facility] Pili Mueller APN, SUPERVISOR WET POUR 9 months ago [facility]en Olmedo MD Upcoming Appointments Future Appointments In 6 days Pili Elkins APN, SUPERVISOR WET POUR [facility] [place] [facility] - Recent and Past Visits Recent Visits Date Type Provider Dept 07/20/20 Office Visit Pili Elkins APN, NETTA [facility] [place] 06/05/20 Office Visit Pili Elkins APN, NETTA [facility] [place] 02/17/20 Office Visit Pili Elkins APN, NETTA [facility] 12/03/19 Office Visit Pili Elkins APN, NETTA [facility] 11/05/19 Telemedicine Justen Gale MD [facility] 07/25/19 Telemedicine [facility] within past 460 days with a meds authorizing provider and meeting all other requirements Future Appointments Date Type Provider Dept 08/12/20 Appointment Pili Elkins APN, NETTA [facility] Showing future appointments within next 90 days [...] st Contact Info) Description 03/19/2025 2:00 PM CORRESPONDENCE CLERK Office Visit [facility] - Endocrinology - [place] [address] [place] [address] Annel Rod MD #[address] [place] [address] 05/29/2025 1:30 PM CORRESPONDENCE CLERK Office Visit [facility] Medical [facility] - Family Medicine - [place] [address] [facility] [place] [address] Justen Gale MD [address] [place] [address] [place] [address] documented as of this encounter Visit Diagnoses Not on filedocumented in this encounter Additional Health Concerns Infection Onset Date Last Indicated Resolved Time COVID - 19 08/01/2024 08/01/2024 08/01/2024 3:20 PM CDT Respiratory Rule-Out 11/18/2024 11/18/2024 025 7:18 AM CDT Assessment Noted Time PHQ-9 Depression Total Score: 0 07/21/19 21 3:00 PM CDT documented as of this encounter Care Teams Client Services Account Manager Relationship Specialty Start Date End Date Justen Gale MD #[address] [address] PCP - General Family Medicine 10/17/17 David Roberts, GROUND SYSTEMS ENGINEER, SUPERVISOR WET POUR [address] [place] [address] Nurse Practitioner Advanced Practice Nurse 01/31/22 Annel Rod MD #[address] [address] Consulting Physician Endocrinology 07/01/22 documented as of this encounter
--- OUTSIDE RECORDS SUMMARY | 2025-02-25 04:11 | XMS_ITS | Clinical Summary ---
Author Organization [facility] Address [address] [id number] Care Team Providers Care Radiation Physicist Name Role Phone Liu Jerez MD Unavailable Albert Corbin MD Unavailable Justen Gale MD Primary Care Provider [phone] Khris Arthur MD Unavailable [phone] Ko Melendez MD Unavailable John Paul Moyer [...] 05/22/2024 Assessment & Plan (05/26/2024 10:08 AM HAT CLEANER): Presenting with urinary symptoms of right [...] 05/22/2024 Assessment & Plan (05/25/2024 7:52 AM HAT CLEANER): Hx of breast cancer c/b DVT/bilateral [...] 05/22/2024 Assessment & Plan (05/22/2024 1:14 PM HAT CLEANER): -long-standing chronic back pain -CT L [...] complication, without long-term current use of insulin ([facility]) 10/23/2017 Assessment & Plan (10/23/2017 [...] 10/13/2017 Assessment & Plan (05/22/2024 12:29 PM HAT CLEANER): -Hx stage II, ER positive, HER2 [...] 08/01/2017 Assessment & Plan (05/22/2024 12:33 PM HAT CLEANER): -Hx LUL -Hospital provided CPAP ordered History of DVT (deep vein thrombosis) 08/01/2017 History of pulmonary embolism 08/01/2017 Generalized weakness 07/27/2017 Dyspnea 07/27/2017 Unintentional weight loss 07/27/2017 Acute cystitis without hematuria 07/27/2017 Nausea and vomiting 07/26/2017 Overview (07/28/2017): Added automatically from request for surgery [id number] Pulmonary embolism 08/09/2016 Assessment & Plan (10/23/2017 2:05 AM CDT): On Rivaroxaban Lymphedema of left upper extremity 08/09/2016 Assessment & Plan (05/25/2024 7:53 AM HAT CLEANER): S/p L axillary lymph node dissection [...] syndrome Assessment & Plan (05/22/2024 11:18 AM HAT CLEANER): -continue home Requip 5mg nightly Pain of lower extremity 03/12/2013 Overview (07/29/2016): Leg pain Essential hypertension Assessment & Plan (05/23/2024 10:42 AM HAT CLEANER): -Chart history of HTN but not on meds -BP elevated on admission, likely some pain contributing -Monitor closely once pain under adequate control, discussed following up with PCP for this Chronic anticoagulation Restless leg syndrome 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 Type 2 diabetes mellitus without complication Assessment & Plan (05/24/2024 1:39 PM HAT CLEANER): -Last Ha1c 8.4 in 2023, repeat [...] TCC Subsequent Outreach [facility] [address] [place] [phone] Janet Ba 01/08/2025 9:45 AM CDT Lab [facility] Advanced [facility] [address] [facility] [address] [place] [address] Polymyalgia rheumatica syndrome; Vitamin D deficiency 01/08/2025 9:21 AM CDT - 01/08/2025 11:59 PM CDT Hospital Encounter [facility] Radiology at [facility] [address] [place] [address] Polymyalgia rheumatica syndrome; Vitamin D deficiency Discharge Disposition: Discharge to home or self care 01/08/2025 8:30 AM CDT Office Visit [facility] Medicine Rheumatology [address] [facility] 2nd Floor [address] [place] [address] Karely Rosado MD Polymyalgia rheumatica syndrome (Primary Dx); Vitamin D deficiency 01/07/2025 3:00 PM CDT Infusion [facility] - Infusion [address] [facility] Floor 5 [place] [address] Malignant neoplasm of overlapping sites of left breast in female, estrogen receptor positive (HCC) (Primary Dx); Malignant neoplasm of upper-inner quadrant of left breast in female, estrogen receptor positive (HCC); Malignant neoplasm of upper-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, unspecified estrogen receptor status (HCC); shelter (current) use 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 inhibitors; Bone disorder 01/07/2025 2:00 PM CDT Office Visit [facility] Medicine Oncology [address] [facility] Floor 8 [place] [phone] Khris Arthur MD Malignant neoplasm of upper-inner quadrant of left breast in female, estrogen receptor positive (HCC) (Primary Dx) 01/07/2025 1:00 PM CDT Clinical Support [facility] [place] - Lab Collection [address] [facility] Floor 5 [place] [address] Malignant neoplasm of upper-inner quadrant of left breast in female, estrogen receptor positive (HCC) 12/26/2024 TCC Subsequent Outreach [facility] [address] [place] [phone] Janet Ba 12/20/2024 Orders Only [facility] Cardiology [address] [place] [address] Laury Moore NP 12/18/2024 Telephone [facility] Medicine Oncology [facility] Floor 8 [place] [phone] Eden Carney RN 12/17/2024 TCC Subsequent Outreach [facility] [address] [place] [phone] Madelyn Cruz NP 12/17/2024 TCC Subsequent Outreach [facility] [address] [place] [phone] Madison Chadwick, [facility] 12/11/2024 3:16 PM CDT - 12/11/2024 9:03 PM CDT Emergency [facility] Emergency Department [address] [place] [phone] Shortness of breath (Primary Dx); Generalized weakness Discharge Disposition: Discharge to home or self care 12/10/2024 TCC Subsequent Outreach [facility] [address] [place] [phone] Madison Chadwick, [facility] 12/07/2024 10:38 PM CDT - 12/08/2024 2:52 AM CDT Emergency [facility] Emergency Department [address] [place] [phone] Gil Diez DO Dehydration (Primary Dx) Discharge Disposition: Discharge to home or self care 12/06/2024 TCC Initial Outreach [facility] [address] [place] [phone] Yunier Hernandez, RN 12/03/2024 TCC Initial Eligibility Review [facility] [address] [place] [phone] Yunier Hernandez RN 12/02/2024 5:27 PM CDT - 12/05/2024 3:30 PM CDT Hospital Encounter [facility] 5 Med Surg [address] [place] [phone] Patrick Rice DO Medavaram, Atul, MD Saravanan, [...] week 05/24/2024 How often do you attend [facility] or jain services? More than 4 times [...] a senior living (including now)? No 05/24/2024 Social Connection and [...] in a senior living (including now)? No 12/03/2024 [facility] Utilities Answer Date Recorded In the past 12 months has th e electric, gas, oil, or water [employer] threatened to shut off services in your home? No 12/03/2024 Personal Safety Answer Date Recorded Have you ever been in or are you currently in a harmful physical or emotional relationship or is someone making you feel afraid or unsafe? Denies 12/11/2024 Comments No Sex and Gender Information Value Date Recorded Sex Assigned at Not on file Legal Sex Female 12:24 AM HAT CLEANER Gender Identity Not on file Sexual [...] Lymphocyte abs 1.89 0.80 - 3.30 K/cumm [facility] Monocyte abs 1.06(H) 0.20 - 0.80 K/cumm [facility] Eosinophil abs 0.26 0.00 - 0.50 K/cumm [facility] Basophil abs 0.05 0.00 - 0.10 K/cumm [facility] Neutrophil pct 73.6 % [facility] Comment: Interpretive Data Percent cell count reference ranges are not reported, since discordance with absolute values may lead to misinterpretation of CBC data. Current Interpretive Data was last revised on 2017. Imm gran pct 0.6 % [facility] Comment: Interpretive Data Percent cell count reference ranges are not reported, since discordance with absolute values may lead to misinterpretation of CBC data. Current Interpretive Data was last revised on 2017. Lymphocyte pct 14.9 % [facility] Comment: Interpretive Data Percent cell count reference ranges are not reported, since discordance with absolute values may lead to misinterpretation of CBC data. Current Interpretive Data was last revised on 2017. Monocyte pct 8.4 % [facility] Comment: Interpretive Data Percent cell count reference ranges are not reported, since discordance with absolute values may lead to misinterpretation of CBC data. Current Interpretive Data was last revised on 2017. Eosinophil pct 2.1 % [facility] Comment: Interpretive Data Percent cell count reference ranges are not reported, since discordance with absolute values may lead to misinterpretation of CBC data. Current Interpretive Data was last revised on 2017. Basophil pct 0.4 % [facility] Comment: Interpretive Data Percent cell count reference ranges are not reported, since discordance with absolute values may lead to misinterpretation of CBC data. Current Interpretive Data was last revised on 2017. Blood 01/08/2025 9:33 AM CDT 01/08/2025 11:11 AM CDT us Karely Rosado MD LAB BLOOD ORDERABLES Final R esult [facility] [address] [facility] Department [place] [address] * MAGGIE ab eval w/reflex (01/08/2025 9:33 AM CDT) MAGGIE ab Negative Negative Comment: Interpretive Data Positive Screens will be reflexed to specific testing for Antibodies against the following antigens: Milena-1 Ab, CANCER SPEC Ab, Scl-70 Ab, Goel Ab, SS-A/Ro Ab, and SS- B/La Ab. Further testing for dsDNA, Centromere, or Ribosomal P antibodies is suggested in patient with a positive screen and negative specific antibodies. Current interpretive data was last revised on 2022. Blood 01/08/2025 9:33 AM CDT 01/08/2025 11:09 AM CDT Karely Rosado MD LAB BLOOD ORDERABLES Final R esult Performing Organization Address City/[facility]/ZIP Co de Phone Number [facility] Department [place] [address] * (ABNORMAL) CBC with auto differential (01/08/2025 9:33 AM CDT) [facility] WBC 12.66(H) 3.80 - 9.90 K/cumm Hgb 13.0 11.9 - 15.5 g/dL [facility] Hct 42.3 35.6 - 45.5 % [facility] Plt 325 150 - 400 K/cumm [facility] MPV 10.5 9.1 - 12.3 fL [facility] RBC 4.61 3.90 - 5.20 M/cumm [facility] MCV 91.8 81.3 - 96.4 fL [facility] MCH 28.2 27.1 - 33.3 pg [facility] MCHC 30.7(L) 32.3 - 35.7 g/dL [facility] RDW CV 13.6 11.1 - 14.9 % [facility] RDW SD 45.8 35.7 - 48.1 fL [facility] NRBC abs 0.00 0.00 - 0.01 K/cumm [facility] Blood 01/08/2025 9:33 AM CDT 01/08/2025 11:11 AM CDT Karely Rosado MD LAB BLOOD ORDERABLES Final R esult [facility] [place] [address] * Cyclic citrul peptide antibody, IgG (01/08/2025 9:33 AM CDT) [facility] CCP Ab <0.5 <=2.9 units/mL Comment: Interpretive data Negative: <3 units/mL Positive: > or equal to 3 units/mL Current interpretive data was last revised on 2016. Blood 01/08/2025 9:33 AM CDT 01/08/2025 11:11 AM CDT Karely Rosado MD LAB BLOOD ORDERABLES Final R esult Performing Organization Address City/[facility] Co de Phone Number [facility] [place] [address] * Vitamin D 25 hydroxy (01/08/2025 9:33 AM CDT) [facility] Vitamin D 25-OH 41 30 - 80 ng/mL Blood 01/08/2025 9:33 AM CDT 01/08/2025 11:30 AM CDT Karely Rosado MD LAB BLOOD ORDERABLES Final R esult Performing Organization Address [facility] Co de Phone Number [facility] [place] [address] * Erythrocyte sedimentation rate (01/08/2025 9:33 AM CDT) [facility] Erythrocyte sedimentation rate 29 1 - 30 mm/hr Blood 01/08/2025 9:33 AM CDT 01/08/2025 11:11 AM CDT Karely Rosado MD LAB BLOOD ORDERABLES Final R esult Performing Organization Address [facility] Co de Phone Number [facility] [place] [address] * Rheumatoid factor (01/08/2025 9:33 AM CDT) [facility] Rheumatoid factor, quant <10.0 0.1 - 15.0 IUnits/mL Blood 01/08/2025 9:33 AM CDT 01/08/2025 11:30 AM CDT Karely Rosado MD LAB BLOOD ORDERABLES Final R esult Performing Organization Address [facility] de Phone Number [facility] [place] [address] * (ABNORMAL) CRP (acute phase) (01/08/2025 9:33 AM CDT) CRP 26.3(H) <=10.0 mg/L Blood 01/08/2025 9:33 AM CDT 01/08/2025 11:30 AM CDT Karely Rosado MD LAB BLOOD ORDERABLES Final R esult Performing Organization Address [facility] de Phone Number [facility] Department [place] [address] * Creatine kinase (CK), total (01/08/2025 9:33 AM CDT) CK 105 30 - 200 Units/L Blood 01/08/2025 9:33 AM CDT 01/08/2025 11:30 AM CDT Karely Rosado MD LAB BLOOD ORDERABLES Final R esult Performing Organization Address [facility] Phone Number [facility] [place] [address] * XR Hand Bilateral 3 or More [...] Goel NP LAB BLOOD ORDERABLES Final Result [facility] Department [place] [address] * Comprehensive metabolic panel (01/07/2025 12:42 PM CDT) Sodium 141 135 - 145 mmol/L Potassium, pl 3.9 3.3 - 4.9 mmol/L [facility] Chloride 103 97 - 110 mmol/L [facility] CO2 27 22 - 32 mmol/L [facility] Anion gap 11 2 - 15 mmol/L [facility] BUN 23 6 - 25 mg/dL [facility] Creatinine 0.83 0.60 - 1.10 mg/dL [facility] Glucose 183 70 - 199 mg/dL [facility] Comment: Interpretive Data Fasting glucose [...] 2022. Calcium 10.0 8.5 - 10.3 mg/dL [facility] Bilirubin, total 0.6 0.1 - 1.2 mg/dL [facility] Protein, pl 8.2 6.5 - 8.5 g/dL [facility] Albumin 4.1 3.5 - 5.0 g/dL [facility] Alk phos 84 40 - 130 Units/L [facility] ALT 21 7 - 45 Units/L [facility] AST 26 10 - 45 Units/L [facility] Blood 01/07/2025 12:4 2 PM CDT 01/07/2025 12:45 PM CDT Darcy Goel [employer] LAB BLOOD ORDERABLES Final Result [facility] Department [place] [address] * Urinalysis reflex to microscopic and culture Urine (12/11/2024 7:55 PM CDT) Color, ur Yellow Yellow Comment:Testing performed by : [address] [address] Clarity, ur Clear Clear MARY JANE Comment:Testing performed by : [address] [address] Specific gravity, ur 1.018 1.003 - 1.030 MARY JANE Comment:Testing performed by : [address] [address] pH, urine 6.5 MARY JANE Comment: Interpretive [...] formation. Source: [facility] Current Interpretive Data was last revised on 2017 Testing performed by: [address] [address] Protein, ur ql Negative Negative MARY JANE Comment:Testing performed by : [address] [address] Glucose, ur ql Negative Negative MARY JANE Comment:Testing performed by : [address] [address] Ketones, ur Negative Negative MARY JANE Comment:Testing performed by : [address] [address] Bilirubin, ur Negative Negative MARY JANE Comment:Testing performed by : [facility], [address] [place] [address]., [address] Blood, ur Negative Negative MARY JANE PHAM Comment:Testing performed by : [facility], [address] [place] [address], [place]., [address] Urobilinogen, ur <2.0 <2.0 mg/dL MARY JANE PHAM Comment:Testing performed by : [address], [place]., [address] Nitrite, ur Negative Negative MARY JANE Comment:Testing performed by : [address], [place]., [address] Leukocyte esterase, ur Negative Negative MARY JANE Comment:Testing performed by : [address] [address] UA reflex comment Reflex conditions for microscopic UA and culture not met. MARY JANE Comment:Testing performed by : [address] [address] Urine 12/11/2024 7:55 PM CDT 12/11/2024 7:58 PM CDT us Blaze Armenta NP LAB MICROBIOLOGY - GENERAL ORDER [place] Final Result MARY JANE [facility] Department [place] [address] * (ABNORMAL) Troponin T high-sensitivity 4-hour (12/11/2024 6:58 PM CDT) Trop T hs 24(H) <=14 ng/L Comment: Interpretive Data For further hscTnT resources including the diagnostic algorithm and an aid in interpretation, copy and paste this link: https://nrl.testcatalog.org/show/hsTrop Current Interpretive Data last revised 2020. Testing performed by: [address] [address] Trop T hs delta -2 ng/L MARY JANE PHAM Comment:Testing performed by : [address] [address] Trop T hs interp Insignificant MARY JANE PHAM Comment:Testing performed by : [address] [address] Blood 12/11/2024 6:58 PM CDT 12/11/2024 7:03 PM CDT Rosa Cruz PA LAB BLOOD ORDERABLES Final Resu lt Performing Organization Address [facility]/ZIP Co de Phone Number MARY JANE [address] [place] [address] * POCT glucose (12/11/2024 6:05 PM CDT) Glucose, POC 132 70 - 199 mg/dL Comment:Testing performed by : [address] [address] Blood 12/11/2024 6:05 PM CDT 12/11/2024 6:05 PM CDT Notinfile Unknown LAB POCT ORDERABLES - DEVICE F inal Result Performing Organization Address [facility] de Phone Number [address] [address] * (ABNORMAL) Troponin T high-sensitivity 2-hour (12/11/2024 5:12 PM CDT) Trop T hs 23(H) <=14 ng/L Comment: Interpretive Data For further hscTnT resources including the diagnostic algorithm and an aid in interpretation, copy and paste this link: https://nrl.testcatalog.org/show/hsTrop Current Interpretive Data last revised 2020. Testing performed by: [address] [address] Trop T hs delta -3 ng/L MARY JANE PHAM Comment:Testing performed by : [address] [address] Trop T hs interp Insignificant MARY JANE Comment:Testing performed by : [address] [address] Blood 12/11/2024 5:12 PM CDT 12/11/2024 5:14 PM CDT us Rosa MCKEON LAB BLOOD ORDERABLES Final Resu lt Performing Organization Address [facility] Co de Phone Number MARY JANE [address] [place] [address] * POCT glucose (12/11/2024 3:29 PM CDT) [facility] Glucose, POC 141 70 - 199 mg/dL Comment:Testing performed by : [address] [address] Blood 12/11/2024 3:29 PM CDT 12/11/2024 3:29 PM CDT Notinfile Unknown LAB POCT ORDERABLES - DEVICE F inal Result Performing Organization Address [facility] de Phone Number MARY JANE [address] [address] * (ABNORMAL) Troponin T high-sensitivity series (baseline, 2hr, 4hr, 6hr) (12/11/2024 3:01 PM CDT) [facility] Trop T hs 26(H) <=14 ng/L Comment: Interpretive Data For further hscTnT resources including the diagnostic algorithm and an aid in interpretation, copy and paste this link: https://nrl.testcatalog.org/show/hsTrop Current Interpretive Data last revised 2020. Testing performed by: [facility], [address] [place] [address]., [address] Blood 12/11/2024 3:01 PM CDT 12/11/2024 3:12 PM CDT Rosa MCKEON LAB BLOOD ORDERABLES Final Resu lt Performing Organization Address [facility] Co de Phone Number MARY JANE [address] [place] [address] * eGFR (12/11/2024 3:01 PM CDT) eGFR [...] was last reviewed 2021. Testing performed by: [facility], [address] [place] [address]., [address] Blood 12/11/2024 3:01 PM CDT 12/11/2024 3:12 PM CDT us Rosa MCKEON LAB BLOOD ORDERABLES Final Resu lt [facility] [address] [facility] Department [place] [address] * Pro B-type natriuretic peptide (12/11/2024 3:01 [...] LIANG et.al. Eur Heart J. 2006:27:330-337. 2. Trcay GRANT, Duyen BEE. J. AM Wang Cardiol: Cardiovasc Imag. 2009;2: 216- 225. Interpretive Data Last Revised Date: 2017. Testing performed by: [facility], [address] [place] [address]., [address] Blood 12/11/2024 3:01 PM CDT 12/11/2024 3:12 PM CDT us Rosa MCKEON LAB BLOOD ORDERABLES Final Resu lt [facility] [address] [facility] Department [place] [address] * Pro B-type natriuretic peptide [...] Last Revised Date: 2017. Testing performed by: [address] [address] Blood 12/11/2024 3:01 PM CDT 12/11/2024 3:12 PM CDT us Rosa MCKEON LAB BLOOD ORDERABLES Final Resu lt MARY JANE PHAM [address] [facility] Department [place] [address] * Comprehensive metabolic panel (12/11/2024 3:01 PM CDT) Sodium 138 135 - 145 mmol/L Comment:Testing performed by : [address] [address] Potassium, pl 4.1 3.3 - 4.9 mmol/L MARY JANE PHAM Comment:Testing performed by : [address] [address] Chloride 99 97 - 110 mmol/L MARY JANE PHAM Comment:Testing performed by : [address] [address] CO2 25 22 - 32 mmol/L MARY JANE PHAM Comment:Testing performed by : [address] [address] Anion gap 14 2 - 15 mmol/L [facility] Comment:Testing performed by : [address] [address] BUN 18 6 - 25 mg/dL [facility] Comment:Testing performed by : [address] [address] Creatinine 0.70 0.60 - 1.10 mg/dL [facility] Comment:Testing performed by : [address] [address] Glucose 179 70 - 199 mg/dL [facility] Comment: Interpretive Data Fasting glucose >/= [...] was last revised 2022. Testing performed by: [address] [address] Calcium 10.0 8.5 - 10.3 mg/dL [facility] Comment:Testing performed by : [address] [address] Bilirubin, total 0.6 0.1 - 1.2 mg/dL [facility] Comment:Testing performed by : [address] [address] Protein, pl 7.8 6.5 - 8.5 g/dL [facility] Comment:Testing performed by : [address] [address] Albumin 4.1 3.5 - 5.0 g/dL [facility] Comment:Testing performed by : [address] [address] Alk phos 81 40 - 130 Units/L [facility] Comment:Testing performed by : [address] [address] ALT 21 7 - 45 Units/L [facility] Comment:Testing performed by : [facility], [address] [place] [address]., [address] AST 21 10 - 45 Units/L MARY JANE Comment:Testing performed by : [facility], [address] [place] [address]., [address] Blood 12/11/2024 3:01 PM CDT 12/11/2024 3:12 PM CDT us Rosa MCKEON LAB BLOOD ORDERABLES Final Resu lt MARY JANE [address] [facility] [place] [address] * XR Chest 1 Vw [...] Olinda Bernal M.D. FT: FT Report ID: [id number] Reading Location: [id number] Procedure Note Olinda Wells MD - 12/11/2024 [...] Olinda Bernal M.D. FT: FT Report ID: [id number] Reading Location: [place] [address] Rosa MCKEON IMG XR PROCEDURES Final Result * (ABNORMAL) Differential, auto (12/11/2024 2:23 PM CDT) Neutrophil abs 7.54(H) 1.50 - 6.50 K/cumm Comment:Testing performed by : [address] [address] Imm gran abs 0.04 0.00 - 0.10 K/cumm MARY JANE Comment:Testing performed by : [address] [address] Lymphocyte abs 2.07 0.80 - 3.30 K/cumm MARY JANE Comment:Testing performed by : [address] [address] Monocyte abs 0.86(H) 0.20 - 0.80 K/cumm MARY JANE Comment:Testing performed by : [address] [address] Eosinophil abs 0.23 0.00 - 0.50 K/cumm MARY JANE Comment:Testing performed by : [address] [address] Basophil abs 0.05 0.00 - 0.10 K/cumm MARY JANE Comment:Testing performed by : [address] [place]., [id number] Neutrophil pct 69.8 % [facility] Comment: Interpretive Data Percent cell count reference ranges are not reported, since discordance with absolute values may lead to misinterpretation of CBC data. Current Interpretive Data was last revised on 2017. Testing performed by: [address] [address] Imm gran pct 0.4 % [facility] Comment: Interpretive Data Percent cell count reference ranges are not reported, since discordance with absolute values may lead to misinterpretation of CBC data. Current Interpretive Data was last revised on 2017. Testing performed by: [address] [address] Lymphocyte pct 19.2 % [facility] Comment: Interpretive Data Percent cell count reference ranges are not reported, since discordance with absolute values may lead to misinterpretation of CBC data. Current Interpretive Data was last revised on 2017. Testing performed by: [address] [address] Monocyte pct 8.0 % [facility] Comment: Interpretive Data Percent cell count reference ranges are not reported, since discordance with absolute values may lead to misinterpretation of CBC data. Current Interpretive Data was last revised on 2017. Testing performed by: [address] [address] Eosinophil pct 2.1 % [facility] Comment: Interpretive Data Percent cell count reference ranges are not reported, since discordance with absolute values may lead to misinterpretation of CBC data. Current Interpretive Data was last revised on 2017. Testing performed by: [address] [address] Basophil pct 0.5 % [facility] Comment: Interpretive Data Percent cell count reference ranges are not reported, since discordance with absolute values may lead to misinterpretation of CBC data. Current Interpretive Data was last revised on 2017. Testing performed by: [address] [address] Blood 12/11/2024 2:23 PM CDT 12/11/2024 2:25 PM CDT us Rosa MCKEON LAB BLOOD ORDERABLES Final Resu lt MARY JANE 9[address] [facility] [place] [address] * (ABNORMAL) CBC with auto differential (12/11/2024 2:23 PM CDT) WBC 10.79(H) 3.80 - 9.90 K/cumm Comment:Testing performed by : [address] [address] Hgb 13.3 11.9 - 15.5 g/dL MARY JANE Comment:Testing performed by : [address] [address] Hct 40.8 35.6 - 45.5 % MARY JANE Comment:Testing performed by : [address] [address] Plt 313 150 - 400 K/cumm MARY JANE Comment:Testing performed by : [address], [address] MPV 9.8 9.1 - 12.3 fL MARY JANE Comment:Testing performed by : [address], [address] RBC 4.64 3.90 - 5.20 M/cumm MARY JANE PHAM Comment:Testing performed by : [address] [address] MCV 87.9 81.3 - 96.4 fL MARY JANE Comment:Testing performed by : [address] [address] MCH 28.7 27.1 - 33.3 pg MARY JANE Comment:Testing performed by : [address], [address] MCHC 32.6 32.3 - 35.7 g/dL MARY JANE Comment:Testing performed by : [address], [address] RDW CV 13.2 11.1 - 14.9 % MARY JANE Comment:Testing performed by : [address], [address] RDW SD 42.5 35.7 - 48.1 fL MARY JANE PHAM Comment:Testing performed by : [facility], [address] [place] [address]., [address] NRBC abs 0.00 0.00 - 0.01 K/cumm MARY JANE PHAM Comment:Testing performed by : [facility], [address] [place] [address]., [address] Blood Venous blood specimen / Unknown 12/11/2024 2:23 PM CDT 12/11/2024 2:25 PM CDT Rosa MCKEON LAB BLOOD ORDERABLES Final Resu lt MARY JANE 9[address] [facility] Department [place] [address] * ECG 12 lead (12/11/2024 2:12 PM CDT) Pathologist [facility] [place] Ventricular Rate EKG/Min 85 BPM [facility] Atrial Rate 85 BPM [facility] CA-Interval (MSEC) 106 ms [facility] QRS-Interval (MSEC) 82 ms [facility] QT-Interval (MSEC) 352 ms [facility] QTc 418 ms [facility] P [place] -12 degrees [facility] R [place] 8 degrees [facility] T [place] 27 degrees [facility] Diagnosis Sinus rhythm with short CA Otherwise normal ECG When compared with ECG of 07-DEC-2024 22:32, Previous ECG has undetermined rhythm, needs review Confirmed by SAGAR DELEON M.D. ([id number]) on 12/11/2024 4:50:58 PM [facility] 12/11/2024 2:12 PM CDT 12/11/2024 4:50 PM CDT Rosa MCKEON ECG ORDERABLES Final Result [facility] * POCT glucose (12/08/2024 1:54 AM CDT) Glucose, POC 112 70 - 199 mg/dL Comment:Testing performed by : [address] [address] Glucose comment 1 RN/MD Notified MARY JANE PHAM Comment:Testing performed by : [address] [address] Blood 12/08/2024 1:54 AM CDT 12/08/2024 1:54 AM CDT Gil Diez DO LAB POCT ORDERABLES - DEVIC E Final Result MARY JANE 45[address] [facility] Department of Laboratories [place], [place] [id number] * (ABNORMAL) Urinalysis reflex to microscopic and culture Urine (12/08/2024 1:50 AM CDT) Color, ur Yellow Yellow Comment:Testing performed by : [address] [address] Clarity, ur Clear Clear MARY JANE PHAM Comment:Testing performed by : [address] [address] Specific gravity, ur 1.020 1.003 - 1.030 MARY JANE Comment:Testing performed by : [address] [address] pH, urine 5.5 MARY JANE Comment: Interpretive [...] formation. Source: [facility] [employer] Current Interpretive Data was last revised on 2017 Testing performed by: [address] [address] Protein, ur ql Negative Negative MARY JANE PHAM Comment:Testing performed by : [address] [address] Glucose, ur ql Negative Negative MARY JANE PHAM Comment:Testing performed by : [address] [address] Ketones, ur Negative Negative MARY JANE PHAM Comment:Testing performed by : [facility], [address] [place] [address], [place]., [address] Bilirubin, ur Negative Negative MARY JANE PHAM Comment:Testing performed by : [address], [place]., [address] Blood, ur Trace(A) Negative MARY JANE PHAM Comment:Testing performed by : [address], [place]., [address] Urobilinogen, ur <2.0 <2.0 mg/dL MARY JANE Comment:Testing performed by : [address], [place]., [address] Nitrite, ur Negative Negative MARY JANE Comment:Testing performed by : [address], [place]., [address] Leukocyte esterase, ur Negative Negative MARY JANE Comment:Testing performed by : [address], [place]., [address] UA reflex comment Reflex to microscopic UA will be performed. MARY JANE PHAM Comment:Testing performed by : [address], [place]., [address] Urine 12/08/2024 1:50 AM CDT 12/08/2024 1:53 AM CDT Gil Diez DO LAB MICROBIOLOGY - GENERAL ORDERABLES Final Result MARY JANE 3542 [facility] [place] [address] * (ABNORMAL) Urinalysis, microscopic only (12/08/2024 1:50 AM CDT) WBC, ur 0-5 0 - 5 /HPF Comment:Testing performed by : [address], [place]., [address] RBC, ur 0-2 0 - 2 /HPF MARY JANE PHAM Comment:Testing performed by : [address] [address] Epithelial cells, squamous, ur 6-10(A) 0 - 5 /HPF MARY JANE PHAM Comment:Testing performed by : [address], [place]., [address] Mucous, ur Present(A) MARY JANE Comment:Testing performed by : [address] [address] Culture Reflex Comment Reflex conditions for urine culture (WBC >10) not met. MARY JANE Comment:Testing performed by : [address] [address] Urine 12/08/2024 1:50 AM CDT 12/08/2024 1:53 AM CDT Gil Diez DO LAB URINE ORDERABLES Final Result Performing Organization Address [facility] Co de Phone Number [address] [address] * (ABNORMAL) Troponin T high-sensitivity (12/08/2024 1:17 AM CDT) Pathologist [facility] [place] Trop T hs 28(H) <=14 ng/L Comment: Interpretive Data For further hscTnT resources including the diagnostic algorithm and an aid in interpretation, copy and paste this link: https://nrl.testcatalog.org/show/hsTrop Current Interpretive Data last revised 2020. Testing performed by: [address] [address] Blood 12/08/2024 1:17 AM CDT 12/08/2024 1:20 AM CDT Gil Diez DO LAB BLOOD ORDERABLES Final Result Performing Organization Address [facility] Co de Phone Number [address] [address] * Influenza A/B, RSV, and COVID-19 PCR Nasopharyngeal (12/08/2024 1:05 AM CDT) [facility] COVID-19 RNA Negative Negative Comment:Testing performed by : [address] [address] Influenza A RNA Negative Negative MARY JANE Comment:Testing performed by : [address] [address] Influenza B RNA Negative Negative MARY JANE Comment:Testing performed by : [facility], [address] [place] [address]., [address] RSV RNA Negative Negative MARY JANE Comment: Interpretive data: Testing performed by [facility]. This test is performed using the [employer] Xpert Xpress CoV-2/Flu/RSV plus assay. This is [...] Data last revised 2023 Testing performed by: [address] [address] Nasopharyngeal 12/08/2024 1: 05 AM CDT 12/08/2024 1:10 AM CDT Narrative MARY JANE - 12/08/2024 1:49 AM CDT Is the Patient experiencing symptoms consistent with COVID?->Yes Gil Diez DO LAB MICROBIOLOGY - GENERAL ORDERABLES Final Result MARY JANE 7[address] [facility] [place] [address] * CT Chest WO Contrast (12/08/2024 1:04 [...] Juve Gallegos M.D. AR: VALERY Report ID: [id number] Reading Location: [place] [address] Procedure Note Juve Gallegos MD - 12/08/2024 [...] Juve Gallegos M.D. AR: VALERY Report ID: [id number] Reading Location: [place] [address] Gil Diez DO IMG CT PROCEDURES Final Res ult * POCT glucose (12/08/2024 12:32 AM CDT) Glucose, POC 92 70 - 199 mg/dL Comment:Testing performed by : [address] [address] Blood 12/08/2024 12:3 2 AM CDT 12/08/2024 12:32 AM CDT Gil Diez DO LAB POCT ORDERABLES - DEVIC E Final Result MARY JANE 4563 [facility] Department of Laboratories [place], [place] [id number] * POCT glucose (12/08/2024 12:15 AM CDT) Glucose, POC 88 70 - 199 mg/dL Comment:Testing performed by : [address] [address] Glucose comment 1 RN/MD Notified MARY JANE Comment:Testing performed by : [address] [address] Blood 12/08/2024 12:1 5 AM CDT 12/08/2024 12:15 AM CDT Gil Diez DO LAB POCT ORDERABLES - DEVIC E Final Result Performing Organization Address [facility] Co de Phone Number MARY JANE [address] [address] * POCT glucose (12/07/2024 11:58 PM CDT) [facility] Glucose, POC 80 70 - 199 mg/dL Comment:Testing performed by : [address] [address] Glucose comment 1 RN/MD Notified MARY JANE Comment:Testing performed by : [facility], [address] [place] [address], [address] Glucose comment 2 Will Repeat Test MARY JANE Comment:Testing performed by : [address] [address] Blood 12/07/2024 11:5 8 PM CDT 12/07/2024 11:58 PM CDT Gil Diez DO LAB POCT ORDERABLES - DEVIC E Final Result Performing Organization Address [facility] de Phone Number [address] [address] * (ABNORMAL) POCT glucose (12/07/2024 11:42 PM CDT) [facility] Glucose, POC 67(L) 70 - 199 mg/dL Comment:Testing performed by : [address] [address] Glucose comment 1 RN/ Notified MARY JANE Comment:Testing performed by : [address] [address] Blood 12/07/2024 11:4 2 PM CDT 12/07/2024 11:42 PM CDT Gil Diez DO LAB POCT ORDERABLES - DEVIC E Final Result Performing Organization Address [facility] Co de Phone Number [address] [address] * CT Head WO Contrast (12/07/2024 11:26 [...] Patrick Zhou M.D. KH: KATH Report ID: [id number] Reading Location: [place] [address] Procedure Note Patrick Zhou MD - 12/07/2024 [...] Patrick Zhou M.D. KH: KATH Report ID: [id number] Reading Location: [place] [address] Gil Diez DO IMG CT PROCEDURES Final Res ult * POCT glucose (12/07/2024 11:08 PM CDT) Glucose, POC 75 70 - 199 mg/dL Comment:Testing performed by : [address] [address] Blood 12/07/2024 11:0 8 PM CDT 12/07/2024 11:08 PM CDT Gil Diez DO LAB POCT ORDERABLES - DEVIC E Final Result Performing Organization Address [facility] de Phone Number [place] [phone] [facility] [place] [address] * POCT glucose (12/07/2024 11:07 PM CDT) Glucose, POC 71 70 - 199 mg/dL Comment:Testing performed by : [address] [address] Blood 12/07/2024 11:0 7 PM CDT 12/07/2024 11:07 PM CDT Gil Diez DO LAB POCT ORDERABLES - DEVIC E Final Result Performing Organization Address City/[facility] Co de Phone Number [address] [place] [address] * XR Chest 1 Vw Portable (If [...] Patrick Zhou M.D. KH: KATH Report ID: [id number] Reading Location: [id number] Procedure Note Patrick Zhou MD - 12/07/2024 [...] Patrick Zhou M.D. KH: KATH Report ID: [id number] Reading Location: [place] [address] us Gil Diez DO IMG XR PROCEDURES [...] last revised 2020. Testing performed by: [facility], [address] [place] [address]., [address] Blood 12/07/2024 10:4 7 PM CDT 12/07/2024 10:51 PM CDT us Gil Diez DO LAB BLOOD ORDERABLES Final Result MARY JANE 4[address] [facility] Department [place] [address] * eGFR (12/07/2024 10:47 PM [...] was last reviewed 2021. Testing performed by: [address] [address] Blood 12/07/2024 10:4 7 PM CDT 12/07/2024 10:51 PM CDT Gil Diez DO LAB BLOOD ORDERABLES Final Result MARY JANE [facility] [place] [address] * (ABNORMAL) Differential, auto (12/07/2024 10:47 PM CDT) Neutrophil abs 7.66(H) 1.50 - 6.50 K/cumm Comment:Testing performed by : [address] [address] Imm gran abs 0.06 0.00 - 0.10 K/cumm MARY JANE Comment:Testing performed by : [address] [address] Lymphocyte abs 3.48(H) 0.80 - 3.30 K/cumm MARY JANE Comment:Testing performed by : [address] [address] Monocyte abs 1.03(H) 0.20 - 0.80 K/cumm MARY JANE Comment:Testing performed by : [address] [address] Eosinophil abs 0.22 0.00 - 0.50 K/cumm [facility] Comment:Testing performed by : [address] [address] Basophil abs 0.05 0.00 - 0.10 K/cumm [facility] Comment:Testing performed by : [address] [address] Neutrophil pct 61.3 % [facility] Comment: Interpretive Data Percent cell count reference ranges are not reported, since discordance with absolute values may lead to misinterpretation of CBC data. Current Interpretive Data was last revised on 2017. Testing performed by: [address] [address] Imm gran pct 0.5 % [facility] Comment: Interpretive Data Percent cell count reference ranges are not reported, since discordance with absolute values may lead to misinterpretation of CBC data. Current Interpretive Data was last revised on 2017. Testing performed by: [address] [address] Lymphocyte pct 27.8 % [facility] Comment: Interpretive Data Percent cell count reference ranges are not reported, since discordance with absolute values may lead to misinterpretation of CBC data. Current Interpretive Data was last revised on 2017. Testing performed by: [address] [address] Monocyte pct 8.2 % [facility] Comment: Interpretive Data Percent cell count reference ranges are not reported, since discordance with absolute values may lead to misinterpretation of CBC data. Current Interpretive Data was last revised on 2017. Testing performed by: [address] [address] Eosinophil pct 1.8 % [facility] Comment: Interpretive Data Percent cell count reference ranges are not reported, since discordance with absolute values may lead to misinterpretation of CBC data. Current Interpretive Data was last revised on 2017. Testing performed by: [address] [address] Basophil pct 0.4 % [facility] Comment: Interpretive Data Percent cell count reference ranges are not reported, since discordance with absolute values may lead to misinterpretation of CBC data. Current Interpretive Data was last revised on 2017. Testing performed by: [facility], [address] [place] [address], [place]., [address] Blood 12/07/2024 10:4 7 PM CDT 12/07/2024 10:51 PM CDT us Gil Diez DO LAB BLOOD ORDERABLES Final Result MARY JANE 37[address] [facility] Department [place] [address] * Pro B-type natriuretic peptide (12/07/2024 10:47 [...] Last Revised Date: 2017. Testing performed by: [address] [address] Blood 12/07/2024 10:4 7 PM CDT 12/07/2024 10:51 PM CDT us Gil Diez DO LAB BLOOD ORDERABLES Final Result [facility] [address] [facility] [place] [address] * (ABNORMAL) CBC with auto differential (12/07/2024 10:47 PM CDT) WBC 12.50(H) 3.80 - 9.90 K/cumm Comment:Testing performed by : [address] [address] Hgb 13.2 11.9 - 15.5 g/dL MARY JANE Comment:Testing performed by : [address] [address] Hct 41.9 35.6 - 45.5 % MARY JANE Comment:Testing performed by : [address] [address] Plt 315 150 - 400 K/cumm MARY JANE Comment:Testing performed by : [address] [address] MPV 9.7 9.1 - 12.3 fL MARY JANE Comment:Testing performed by : [address] [address] RBC 4.65 3.90 - 5.20 M/cumm MARY JANE Comment:Testing performed by : [address] [address] MCV 90.1 81.3 - 96.4 fL MARY JANE Comment:Testing performed by : [address] [address] MCH 28.4 27.1 - 33.3 pg MARY JANE PHAM Comment:Testing performed by : [address] [address] MCHC 31.5(L) 32.3 - 35.7 g/dL MARY JANE PHAM Comment:Testing performed by : [facility], [address] [place] [address]., [address] RDW CV 13.3 11.1 - 14.9 % MARY JANE Comment:Testing performed by : [address] [address] RDW SD 43.7 35.7 - 48.1 fL MARY JANE Comment:Testing performed by : [address] [address] NRBC abs 0.00 0.00 - 0.01 K/cumm MARY JANE Comment:Testing performed by : [address] [address] Blood 12/07/2024 10:4 7 PM CDT 12/07/2024 10:51 PM CDT Gil Diez DO LAB BLOOD ORDERABLES Final Result Performing Organization Address [facility] Co de Phone Number [address] [place] [address] * Magnesium (12/07/2024 10:47 PM CDT) Pathologist [facility] [place] Magnesium 1.9 1.4 - 2.5 mg/dL Comment:Testing performed by : [address] [address] Blood 12/07/2024 10:4 7 PM CDT 12/07/2024 10:51 PM CDT Gil Diez DO LAB BLOOD ORDERABLES Final Result Performing Organization Address City/[facility] Co de Phone Number [address] [address] * (ABNORMAL) Comprehensive metabolic panel (12/07/2024 10:47 PM CDT) Pathologist [facility] [place] Sodium 141 135 - 145 mmol/L Comment:Testing performed by : [address] [address] Potassium, pl 3.9 3.3 - 4.9 mmol/L MARY JANE Comment:Testing performed by : [address], [place]., [address] Chloride 102 97 - 110 mmol/L MARY JANE Comment:Testing performed by : [address], [place]., [address] CO2 25 22 - 32 mmol/L MARY JANE Comment:Testing performed by : [address], [place]., [address] Anion gap 14 2 - 15 mmol/L MARY JANE Comment:Testing performed by : [address], [place]., [address] BUN 19 6 - 25 mg/dL MARY JANE Comment:Testing performed by : [address], [place]., [address] Creatinine 0.78 0.60 - 1.10 mg/dL MARY JANE Comment:Testing performed by : [address], [place]., [address] Glucose 92 70 - 199 mg/dL MARY [...] was last revised 2022. Testing performed by: [address] [address] Calcium 10.7(H) 8.5 - 10.3 mg/dL MARY JANE Comment:Testing performed by : [address] [address] Bilirubin, total 0.5 0.1 - 1.2 mg/dL MARY JANE Comment:Testing performed by : [address], [place]., [address] Protein, pl 8.4 6.5 - 8.5 g/dL MARY JANE Comment:Testing performed by : [address] [address] Albumin 4.1 3.5 - 5.0 g/dL MARY JANE Comment:Testing performed by : [address] [address] Alk phos 79 40 - 130 Units/L MARY JANE Comment:Testing performed by : [address] [address] ALT 21 7 - 45 Units/L MARY JANE Comment:Testing performed by : [address] [address] AST 21 10 - 45 Units/L MARY JANE Comment:Testing performed by : [address] [address] Blood 12/07/2024 10:4 7 PM CDT 12/07/2024 10:51 PM CDT us Gil Diez DO LAB BLOOD ORDERABLES Final Result MARY JANE 0[address] [facility] [place] [address] * ECG 12 lead (12/07/2024 10:32 PM CDT) Ventricular Rate EKG/Min 78 BPM [facility] Atrial Rate 78 BPM [facility] CA-Interval (MSEC) 104 ms [facility] QRS-Interval (MSEC) 84 ms [facility] QT-Interval (MSEC) 392 ms [facility] QTc 446 ms [facility] P [place] -65 degrees [facility] R [place] 0 degrees [facility] T [place] 44 degrees [facility] Diagnosis Sinus rhythm. Otherwise normal ECG When compared with ECG of 07-DEC-2024 22:32, Premature ventricular complexes are no longer Present Premature atrial complexes are now Present Confirmed by MD JOHNNA, VINCENT ([id number]) on 12/08/2024 11:31:38 PM [facility] 12/07/2024 10:3 2 PM CDT 12/08/2024 11:31 PM CDT us Gil Aguila Abbeg DO ECG ORDERABLES Final Resul t Performing Organization Address [facility] Co de Phone Number [facility] * ECG 12 lead (12/07/2024 10:32 PM CDT) [facility] Ventricular Rate EKG/Min 75 BPM [facility] Atrial Rate 75 BPM [facility] CA-Interval (MSEC) 138 ms [facility] QRS-Interval (MSEC) 84 ms [facility] QT-Interval (MSEC) 360 ms [facility] QTc 402 ms [facility] P [place] -78 degrees [facility] R [place] -3 degrees [facility] T [place] 33 degrees [facility] Diagnosis Unusual P axis and short CA, probable junctional rhythm with occasional Premature ventricular complexes Abnormal ECG When compared with ECG of 02-DEC-2024 15:33, Junctional rhythm has replaced Sinus rhythm Confirmed by MD JOHNNA, VINCENT ([id number]), editor book RIMA GELLER ([id number]) on 12/08/2024 8:22:42 AM Also confirmed by MD OROPEZA ROBERT ([id number]), editor book KRISTINE LEIJA ([id number]) on 12/09/2024 8:25:14 AM [facility] 12/07/2024 10:3 2 PM CDT 12/09/2024 8:25 AM CDT Gil Diez DO ECG ORDERABLES Edited Resu lt - Final Performing Organization Address [facility] Co de Phone Number [facility] * (ABNORMAL) POCT glucose (12/05/2024 1:27 PM CDT) Glucose, POC 251(H) 70 - 199 mg/dL Comment:Testing performed by : [facility], [address] [place] [address]., [address] Glucose comment 1 RN/MD Notified MARY JANE PHAM Comment:Testing performed by : [facility], [address] [place] [address]., [address] Blood 12/05/2024 1:27 PM CDT 12/05/2024 1:27 PM CDT Kenzie Jiménez MD LAB POCT ORDERABLES - DE VICE Final Result MARY JANE [address] [facility] [place] [address] * XR Chest PA Lateral 2 Views [...] Barbara Man M.D. TW: SAROJ Report ID: [id number] Reading Location: [id number] Procedure Note Barbara Man MD - 12/05/2024 [...] Barbara Man M.D. TW: TW Report ID: [id number] Reading Location: [place] [address] Kenzie Jiménez MD IMG XR PROCEDURES Final Result * POCT glucose (12/05/2024 8:38 AM CDT) [facility] Glucose, POC 144 70 - 199 mg/dL Comment:Testing performed by : [facility], [address] [place] [address]., [address] Glucose comment 1 RN/MD Notified MARY JANE PHAM Comment:Testing performed by : [facility], [address] [place] [address]., [address] Blood 12/05/2024 8:38 AM CDT 12/05/2024 8:38 AM CDT Kenzie Jiménez MD LAB POCT ORDERABLES - DE VICE Final Result MARY JANE PHAM [address] [facility] [place] [address] * eGFR (12/05/2024 5:04 AM CDT) [facility] eGFR >90 >=60 mL/min/1. 73 m2 Comment: [...] was last reviewed 2021. Testing performed by: [address] [address] Blood 12/05/2024 5:04 AM CDT 12/05/2024 5:24 AM CDT us Santos Wallace MD LAB BLOOD ORDERABLES Final Res ult MARY JANE [facility] Department [place] [address] * (ABNORMAL) CBC without differential (12/05/2024 5:04 AM CDT) WBC 11.17(H) 3.80 - 9.90 K/cumm Comment:Testing performed by : [address] [address] Hgb 12.2 11.9 - 15.5 g/dL MARY JANE PHAM Comment:Testing performed by : [address] [address] Hct 38.4 35.6 - 45.5 % MARY JANE PHAM Comment:Testing performed by : [address] [address] Plt 286 150 - 400 K/cumm MARY JANE PHAM Comment:Testing performed by : [address] [address] MPV 9.8 9.1 - 12.3 fL MARY JANE PHAM Comment:Testing performed by : [address] [address] RBC 4.27 3.90 - 5.20 M/cumm MARY JANE PHAM Comment:Testing performed by : [address] [address] MCV 89.9 81.3 - 96.4 fL MARY JANE PHAM Comment:Testing performed by : [address] [address] MCH 28.6 27.1 - 33.3 pg MARY JANE PHAM Comment:Testing performed by : [address] [address] MCHC 31.8(L) 32.3 - 35.7 g/dL MARY JANE PHAM Comment:Testing performed by : [address] [address] RDW CV 13.5 11.1 - 14.9 % MARY JANE PHAM Comment:Testing performed by : [address] [address] RDW SD 44.3 35.7 - 48.1 fL MARY JANE Comment:Testing performed by : [address] [address] NRBC abs 0.00 0.00 - 0.01 K/cumm MARY JANE PHAM Comment:Testing performed by : [address] [address] Blood 12/05/2024 5:04 AM CDT 12/05/2024 5:24 AM CDT us Santos Wallace MD LAB BLOOD ORDERABLES Final Res ult MARY JANE [address] [facility] Department [place] [address] * Basic metabolic panel (12/05/2024 5:04 AM CDT) Pathologist [facility] [place] Sodium 138 135 - 145 mmol/L Comment:Testing performed by : [address] [address] Potassium, pl 3.7 3.3 - 4.9 mmol/L MARY JANE PHAM Comment:Testing performed by : [address] [address] Chloride 101 97 - 110 mmol/L MARY JANE Comment:Testing performed by : [address] [address] CO2 25 22 - 32 mmol/L MARY JANE Comment:Testing performed by : [address] [address] Anion gap 12 2 - 15 mmol/L MARY JANE Comment:Testing performed by : [address], [place]., [address] BUN 20 6 - 25 mg/dL MARY JANE Comment:Testing performed by : [address] [address] Creatinine 0.71 0.60 - 1.10 mg/dL MARY JANE Comment:Testing performed by : [address] [address] Glucose 159 70 - 199 mg/dL MARY [...] was last revised 2022. Testing performed by: [address] [address] Calcium 9.5 8.5 - 10.3 mg/dL MARY JANE Comment:Testing performed by : [address] [address] Blood 12/05/2024 5:04 AM CDT 12/05/2024 5:24 AM CDT us Santos Wallace MD LAB BLOOD ORDERABLES Final Res ult MARY JANE [address] [address] * POCT glucose (12/04/2024 8:45 PM CDT) Glucose, POC 147 70 - 199 mg/dL Comment:Testing performed by : [address] [address] Blood 12/04/2024 8:45 PM CDT 12/04/2024 8:45 PM CDT Kenzie Jiménez MD LAB POCT ORDERABLES - DE VICE Final Result Performing Organization Address City/[facility]/ZIP Co de Phone Number MARY JANE [address] [address] * POCT glucose (12/04/2024 4:27 PM CDT) Glucose, POC 153 70 - 199 mg/dL Comment:Testing performed by : [address] [address] Blood 12/04/2024 4:27 PM CDT 12/04/2024 4:27 PM CDT Keznie Jiménez MD LAB POCT ORDERABLES - DE VICE Final Result Performing Organization Address City/[facility]/ZIP Co de Phone Number [address] [address] * NM Myocardial Amyloidosis Imaging [employer] [...] Olinda Bernal M.D. FT: FT Report ID: [id number] Reading Location: [id number] Procedure Note Olinda Wells MD - 12/04/2024 [...] Olinda Bernal M.D. FT: FT Report ID: [id number] Reading Location: [id number] [place] Medina MD [facility] [place] [place] NM PROCEDURES Final Result * POCT glucose (12/04/2024 11:15 AM CDT) Glucose, POC 91 70 - 199 mg/dL Comment:Testing performed by : [facility], [address] [place] [address]., [address] Blood 12/04/2024 11:1 5 AM CDT 12/04/2024 11:15 AM CDT Kenzie Jiménez MD LAB POCT ORDERABLES - DE VICE Final Result Performing Organization Address City/[facility] Co de Phone Number MARY JANE [address] [place] [address] * POCT glucose (12/04/2024 7:57 AM CDT) Glucose, POC 150 70 - 199 mg/dL Comment:Testing performed by : [facility], [address] [place] [address]., [address] Blood 12/04/2024 7:57 AM CDT 12/04/2024 7:57 AM CDT Kenzie Jiménez MD LAB POCT ORDERABLES - DE VICE Final Result Performing Organization Address [facility] Co al Phone Number [address] [address] * eGFR (12/04/2024 5:35 AM CDT) eGFR [...] was last reviewed 2021. Testing performed by: [address] [address] Blood 12/04/2024 5:35 AM CDT 12/04/2024 6:37 AM CDT us Kenzie Jiménez MD LAB BLOOD ORDERABLES [facility] al Result [facility] Department [place] [address] * (ABNORMAL) Differential, auto (12/04/2024 5:35 AM CDT) Neutrophil abs 7.29(H) 1.50 - 6.50 K/cumm Comment:Testing performed by : [address] [address] Imm gran abs 0.06 0.00 - 0.10 K/cumm MARY JANE Comment:Testing performed by : [address] [address] Lymphocyte abs 2.56 0.80 - 3.30 K/cumm MARY JANE Comment:Testing performed by : [address] [address] Monocyte abs 0.75 0.20 - 0.80 K/cumm MARY JANE Comment:Testing performed by : [address] [address] Eosinophil abs 0.21 0.00 - 0.50 K/cumm MARY JANE Comment:Testing performed by : [address] [address] Basophil abs 0.03 0.00 - 0.10 K/cumm MARY JANE Comment:Testing performed by : [address] [address] Neutrophil pct 66.8 % MARY JANE Comment: Interpretive Data Percent cell count reference ranges are not reported, since discordance with absolute values may lead to misinterpretation of CBC data. Current Interpretive Data was last revised on 2017. Testing performed by: [address] [address] Imm gran pct 0.6 % [facility] Comment: Interpretive Data Percent cell count reference ranges are not reported, since discordance with absolute values may lead to misinterpretation of CBC data. Current Interpretive Data was last revised on 2017. Testing performed by: [address] [address] Lymphocyte pct 23.5 % [facility] Comment: Interpretive Data Percent cell count reference ranges are not reported, since discordance with absolute values may lead to misinterpretation of CBC data. Current Interpretive Data was last revised on 2017. Testing performed by: [address] [address] Monocyte pct 6.9 % [facility] Comment: Interpretive Data Percent cell count reference ranges are not reported, since discordance with absolute values may lead to misinterpretation of CBC data. Current Interpretive Data was last revised on 2017. Testing performed by: [address] [address] Eosinophil pct 1.9 % [facility] Comment: Interpretive Data Percent cell count reference ranges are not reported, since discordance with absolute values may lead to misinterpretation of CBC data. Current Interpretive Data was last revised on 2017. Testing performed by: [address] [address] Basophil pct 0.3 % [facility] Comment: Interpretive Data Percent cell count reference ranges are not reported, since discordance with absolute values may lead to misinterpretation of CBC data. Current Interpretive Data was last revised on 2017. Testing performed by: [address] [address] Blood 12/04/2024 5:35 AM CDT 12/04/2024 6:37 AM CDT us Kenzie Jiménez MD LAB BLOOD ORDERABLES Fin al Result MARY JANE [address] [facility] Department [place] [address] * (ABNORMAL) Immunoglobulin free light chains (12/04/2024 5:35 AM CDT) [facility] [place]/Lambda ratio [facility] 1.26 0.26 - 1.65 Comment: Interpretive Data The Binding Site FreeLite assay procedure was used. Results from different manufacturers or methods may not be comparable. Serial testing should be performed using the same methods and instrumentation. Current Interpretive Data was last revised on 2023. Testing performed by: [facility], [address] [place]., [address] [place] free light chain [facility] 3.37(H) 0.33 - 1.94 mg/dL MARY JANE Comment: Interpretive Data The Binding Site FreeLite assay procedure was used. Results from different manufacturers or methods may not be comparable. Serial testing should be performed using the same methods and instrumentation. Current Interpretive Data was last revised on 2023. Testing performed by: [facility], [address] [place]., [address] Lambda free light chain [facility] 2.67(H) 0.57 - 2.63 mg/dL MARY JANE Comment: Interpretive Data The Binding Site FreeLite assay procedure was used. Results from different manufacturers or methods may not be comparable. Serial testing should be performed using the same methods and instrumentation. Current Interpretive Data was last revised on 2023. Testing performed by: [facility], [address] [place]., [address] Blood 12/04/2024 5:35 AM CDT 12/04/2024 9:21 AM CDT Salinas Medina MD LAB BLOOD ORDERABLES [facility] Result MARY JANE [address] [facility] Department [place] [address] * (ABNORMAL) CBC with auto differential (12/04/2024 5:35 AM CDT) WBC 10.90(H) 3.80 - 9.90 K/cumm Comment:Testing performed by : [address] [address] Hgb 12.0 11.9 - 15.5 g/dL MARY JANE Comment:Testing performed by : [address] [address] Hct 38.0 35.6 - 45.5 % MARY JANE Comment:Testing performed by : [address] [address] Plt 258 150 - 400 K/cumm MARY JANE Comment:Testing performed by : [address] [address] MPV 10.1 9.1 - 12.3 fL MARY JANE Comment:Testing performed by : [address] [address] RBC 4.18 3.90 - 5.20 M/cumm MARY JANE Comment:Testing performed by : [address] [address] MCV 90.9 81.3 - 96.4 fL MARY JANE Comment:Testing performed by : [address] [address] MCH 28.7 27.1 - 33.3 pg MARY JANE Comment:Testing performed by : [address] [address] MCHC 31.6(L) 32.3 - 35.7 g/dL MARY JANE Comment:Testing performed by : [address] [address] RDW CV 13.5 11.1 - 14.9 % MARY JANE Comment:Testing performed by : [address] [address] RDW SD 45.0 35.7 - 48.1 fL MARY JANE Comment:Testing performed by : [address] [address] NRBC abs 0.00 0.00 - 0.01 K/cumm MARY JANE Comment:Testing performed by : [address] [address] Blood 12/04/2024 5:35 AM CDT 12/04/2024 6:37 AM CDT Kenzie Jiménez MD LAB BLOOD ORDERABLES Fin al Result Performing Organization Address City/[facility] Co de Phone Number [address] [address] * Magnesium (12/04/2024 5:35 AM CDT) Pathologist [facility] [place] Magnesium 1.7 1.4 - 2.5 mg/dL Comment:Testing performed by : [address] [address] Blood 12/04/2024 5:35 AM CDT 12/04/2024 6:37 AM CDT Kenzie Jiménez MD LAB BLOOD ORDERABLES Fin al Result Performing Organization Address [facility] de Phone Number [address] [address] * (ABNORMAL) Hemoglobin A1c (12/04/2024 5:35 AM CDT) Pathologist [facility] [place] Hgb A1C 9.7(H) 4.0 - 5.6 % Comment:Testing performed by : [address] [address] Estimated Average Glucose 232 mg/dL MARY JANE Comment: The ADA recommends reporting an estimated Average Glucose (eAG) with all Hemoglobin A1c results using the equation derived from a study of 507 normal and diabetic adults. Minority populations were underrepresented and children were not included. (Diabetes Care 31:6175-8326, 2008). The eAG is not equivalent to a fasting glucose. Testing performed by: [address] [address] Blood 12/04/2024 5:35 AM CDT 12/04/2024 6:39 AM CDT Salinas Medina MD LAB BLOOD ORDERABLES Fi nal Result MARY JANE [address] [facility] Department [place] [address] * Lipid panel (12/04/2024 5:35 AM CDT) [...] last revised on 2017. Testing performed by: [address] [address] Triglycerides 140 <=149 mg/dL MARY JANE Comment: [...] last revised on 2017. Testing performed by: [address] [address] HDL 43 >=40 mg/dL MARY JANE Comment: [...] last revised on 2017. Testing performed by: [address] [address] LDL, calculated 108 <=129 mg/dL MARY JANE [...] last revised on 2023. Testing performed by: [address] [address] Non-HDL Cholesterol 133 mg/dL MARY JANE Comment: [...] last revised on 2017. Testing performed by: [address] [address] Chol/HDL ratio 4 MARY JANE Comment:Testing performed by : [address] [place] [address] Blood 12/04/2024 5:35 AM CDT 12/04/2024 6:37 AM CDT Salinas Medina MD LAB BLOOD ORDERABLES Fi nal Result [facility] [address] [facility] [place] [address] * (ABNORMAL) Comprehensive metabolic panel (12/04/2024 5:35 AM CDT) Sodium 136 135 - 145 mmol/L Comment:Testing performed by : [address] [address] Potassium, pl 3.9 3.3 - 4.9 mmol/L MARY JANE Comment:Testing performed by : [address] [address] Chloride 99 97 - 110 mmol/L MARY JANE Comment:Testing performed by : [address] [address] CO2 26 22 - 32 mmol/L MARY JANE Comment:Testing performed by : [address] [address] Anion gap 11 2 - 15 mmol/L MARY JANE Comment:Testing performed by : [address] [address] BUN 17 6 - 25 mg/dL MARY JANE Comment:Testing performed by : [address] [address] Creatinine 0.69 0.60 - 1.10 mg/dL MARY JANE Comment:Testing performed by : [address] [address] Glucose 149 70 - 199 mg/dL MARY [...] was last revised 2022. Testing performed by: [address] [address] Calcium 9.5 8.5 - 10.3 mg/dL MARY JANE Comment:Testing performed by : [address] [address] Bilirubin, total 0.8 0.1 - 1.2 mg/dL MARY JANE Comment:Testing performed by : [address] [address] Protein, pl 6.8 6.5 - 8.5 g/dL MARY JANE Comment:Testing performed by : [address] [address] Albumin 3.3(L) 3.5 - 5.0 g/dL MARY JANE Comment:Testing performed by : [address] [address] Alk phos 64 40 - 130 Units/L MARY JANE Comment:Testing performed by : [address] [address] ALT 17 7 - 45 Units/L MARY JANE Comment:Testing performed by : [address] [address] AST 15 10 - 45 Units/L MARY JANE Comment:Testing performed by : [address] [address] Blood 12/04/2024 5:35 AM CDT 12/04/2024 6:37 AM CDT us Kenzie Jiménez MD LAB BLOOD ORDERABLES Fin al Result MARY JANE [address] [facility] Department [place] [address] * POCT glucose (12/03/2024 9:20 PM CDT) [facility] Signature Glucose, POC 105 70 - 199 mg/dL Comment:Testing performed by : [address] [address] Blood 12/03/2024 9:20 PM CDT 12/03/2024 9:20 PM CDT Kenzie Jiménez MD LAB POCT ORDERABLES - DE VICE Final Result Performing Organization Address [facility] de Phone Number MARY JANE [address] [place] [address] * POCT glucose (12/03/2024 4:42 PM CDT) Glucose, POC 145 70 - 199 mg/dL Comment:Testing performed by : [address] [address] Glucose comment 1 Will Repeat Test MARY JANE Comment:Testing performed by : [address] [address] Glucose comment 2 RN/MD Notified MARY JANE Comment:Testing performed by : [address] [address] Blood 12/03/2024 4:42 PM CDT 12/03/2024 4:42 PM CDT Kenzie Jiménez MD LAB POCT ORDERABLES - DE VICE Final Result Performing Organization Address [facility] de Phone Number [address] [address] * POCT glucose (12/03/2024 12:25 PM CDT) Glucose, POC 199 70 - 199 mg/dL Comment:Testing performed by : [address] [address] Glucose comment 1 Will Repeat Test MARY JANE Comment:Testing performed by : [address] [address] Glucose comment 2 RN/MD Notified MARY JANE Comment:Testing performed by : [address] [address] Blood 12/03/2024 12:2 5 PM CDT 12/03/2024 12:25 PM CDT us Kenzie Jiménez MD LAB POCT ORDERABLES - DE VICE Final Result MARY JANE [facility] [place] [address] * TRANSTHORACIC ECHO (TTE) COMPLETE W DOPPLER/CF [...] AM Ht(Inch): 61 Wt(Lb): 275.99 BSA: 2.32 Bill Checker: Coni Vee RDCS Location: [id number] Order Provider: PATRICK RICE Heart Rate: 76 BMI: 52.14 BP: 130 / 79 Ref Provider: PATRICK RICE PROCEDURES: Echocardiographic Report: ([id number]) Transthoracic complete echo with contrast, 2D, spectral [...] AM Ht(Inch): 61 Wt(Lb): 275.99 BSA: 2.32 Bill Checker: Coni Vee RDCS Location: [id number] Order Provider:PATRICK RICE Heart Rate: 76 BMI: 52.14 BP: 130 / 79 Ref Provider: PATRICK RICE PROCEDURES: Echocardiographic Report: ([id number]) Transthoracic complete echo withcontrast, 2D, spectral and [...] LA Length 4C 5.56 cm MV A Thi605.00 msec LA Volume BP 41.30 ml MV [...] * POCT glucose (12/03/2024 8:13 AM CDT) [facility] Glucose, POC 159 70 - 199 mg/dL Comment:Testing performed by : [address] [address] Glucose comment 1 Will Repeat Test MARY JANE PHAM Comment:Testing performed by : [address] [address] Glucose comment 2 RN/MD Notified MARY JANE PHAM Comment:Testing performed by : [address] [address] Blood 12/03/2024 8:13 AM CDT 12/03/2024 8:13 AM CDT Kenzie Jiménez MD LAB POCT ORDERABLES - DE VICE Final Result Performing Organization Address [facility] de Phone Number MARY JANE [facility] [place] [address] * eGFR (12/03/2024 5:13 AM CDT) Pathologist [...] was last reviewed 2021. Testing performed by: [address] [address] Blood 12/03/2024 5:13 AM CDT 12/03/2024 5:37 AM CDT Santos Wallace MD LAB BLOOD ORDERABLES Final Res ult Performing Organization Address [facility]/ZIP Co de Phone Number MARY JANE [facility] [place] [address] * (ABNORMAL) CBC without differential (12/03/2024 5:13 AM CDT) Pathologist [facility] [place] WBC 10.70(H) 3.80 - 9.90 K/cumm Comment:Testing performed by : [address] [address] Hgb 12.1 11.9 - 15.5 g/dL MARY JANE Comment:Testing performed by : [address] [address] Hct 37.8 35.6 - 45.5 % MARY JANE Comment:Testing performed by : [address] [address] Plt 258 150 - 400 K/cumm MARY JANE Comment:Testing performed by : [address] [address] MPV 9.8 9.1 - 12.3 fL MARY JANE Comment:Testing performed by : [address] [address] RBC 4.15 3.90 - 5.20 M/cumm MARY JANE Comment:Testing performed by : [address], [address] MCV 91.1 81.3 - 96.4 fL MARY JANE Comment:Testing performed by : [address], [address] MCH 29.2 27.1 - 33.3 pg MARY JANE Comment:Testing performed by : [address] [address] MCHC 32.0(L) 32.3 - 35.7 g/dL MARY JANE Comment:Testing performed by : [address], [address] RDW CV 13.7 11.1 - 14.9 % MARY JANE Comment:Testing performed by : [address], [address] RDW SD 45.7 35.7 - 48.1 fL MARY JANE Comment:Testing performed by : [address] [address] NRBC abs 0.00 0.00 - 0.01 K/cumm MARY JANE Comment:Testing performed by : [address], [address] Blood 12/03/2024 5:13 AM CDT 12/03/2024 5:42 AM CDT us Santos Wallace MD LAB BLOOD ORDERABLES Final Res ult MARY JANE 63[address] [facility] [place] [address] * Basic metabolic panel (12/03/2024 5:13 AM CDT) Sodium 139 135 - 145 mmol/L Comment:Testing performed by : [address] [address] Potassium, pl 3.8 3.3 - 4.9 mmol/L MARY JANE Comment:Testing performed by : [address] [address] Chloride 101 97 - 110 mmol/L MARY JANE Comment:Testing performed by : [address] [address] CO2 27 22 - 32 mmol/L MARY JANE Comment:Testing performed by : [address] [address] Anion gap 11 2 - 15 mmol/L MARY JANE Comment:Testing performed by : [address] [address] BUN 16 6 - 25 mg/dL MARY JANE Comment:Testing performed by : [address] [address] Creatinine 0.70 0.60 - 1.10 mg/dL MARY JANE Comment:Testing performed by : [address] [address] Glucose 170 70 - 199 mg/dL MARY [...] was last revised 2022. Testing performed by: [address] [address] Calcium 9.5 8.5 - 10.3 mg/dL MARY JANE PHAM Comment:Testing performed by : [address] [address] Blood 12/03/2024 5:13 AM CDT 12/03/2024 5:37 AM CDT us Santos Wallace MD LAB BLOOD ORDERABLES Final Res ult Performing Organization Address [facility] Co de Phone Number MARY JANE [address] [place] [address] * POCT glucose (12/02/2024 11:12 PM CDT) [facility] Glucose, POC 108 70 - 199 mg/dL Comment:Testing performed by : [address] [address] Glucose comment 1 RN/MD Notified MARY JAEN Comment:Testing performed by : [address] [address] Blood 12/02/2024 11:1 2 PM CDT 12/02/2024 11:12 PM CDT Santos Wallace MD LAB POCT ORDERABLES - DEVICE F inal Result Performing Organization Address [facility] de Phone Number MARY JANE [address] [address] * (ABNORMAL) Troponin T high-sensitivity 6-hour (12/02/2024 10:06 PM CDT) [facility] Trop T hs 24(H) <=14 ng/L Comment: Interpretive Data For further hscTnT resources including the diagnostic algorithm and an aid in interpretation, copy and paste this link: https://nrl.testcatalog.org/show/hsTrop Current Interpretive Data last revised 2020. Testing performed by: [address] [address] Trop T hs delta -1 ng/L MARY JANE PHAM Comment:Testing performed by : [address] [address] Trop T hs interp Insignificant MARY JANE Comment:Testing performed by : [address] [address] Blood 12/02/2024 10:0 6 PM CDT 12/02/2024 10:08 PM CDT us Gil Diez DO LAB BLOOD ORDERABLES Final Result Performing Organization Address [facility] Co de Phone Number [address] [place] [address] * POCT glucose (12/02/2024 10:03 PM CDT) [facility] Glucose, POC 110 70 - 199 mg/dL Comment:Testing performed by : [address] [address] Blood 12/02/2024 10:0 3 PM CDT 12/02/2024 10:03 PM CDT us Santos Wallace MD LAB POCT ORDERABLES - DEVICE F inal Result Performing Organization Address [facility] de Phone Number [address] [address] * (ABNORMAL) Troponin T high-sensitivity 4-hour (12/02/2024 8:26 PM CDT) [facility] Trop T hs 22(H) <=14 ng/L Comment: Interpretive Data For further hscTnT resources including the diagnostic algorithm and an aid in interpretation, copy and paste this link: https://nrl.testcatalog.org/show/hsTrop Current Interpretive Data last revised 2020. Testing performed by: [address] [address] Trop T hs delta -3 ng/L MARY JANE PHAM Comment:Testing performed by : [address] [address] Trop T hs interp Insignificant MARY JANE Comment:Testing performed by : [address] [place]., [address] Blood 12/02/2024 8:26 PM CDT 12/02/2024 8:31 PM CDT us Gil Sheehan [facility] LAB BLOOD ORDERABLES Final Result MARY JANE [address] [facility] [place] [address] * CT Chest PE (CTA) [...] Perfecto Arguello M.D. LB: LB Report ID: [id number] Reading Location: [place] [address] Procedure Note Perfecto Arguello MD - 12/02/2024 [...] Perfecto Arguello M.D. LB: TAYLOR Report ID: [id number] Reading Location: [place] [address] Patrick Rice DO IMG CT PROCEDURES Final Res ult * Sepsis Lactate w/ Reflex (12/02/2024 6:19 PM CDT) [facility] Sepsis Lactate 1.2 0.7 - 2.0 mmol/L Comment:Testing performed by : [address] [address] Blood 12/02/2024 6:19 PM CDT 12/02/2024 6:22 PM CDT Patrick Rice DO LAB BLOOD ORDERABLES Final Result MARY JANE 0[address] [facility] Department [place] [address] * (ABNORMAL) Urinalysis reflex to microscopic and culture Urine (12/02/2024 6:19 PM CDT) Pathologist [facility] [place] Color, ur Yellow Yellow Comment:Testing performed by : [address] [address] Clarity, ur Clear Clear MARY JANE Comment:Testing performed by : [address] [address] Specific gravity, ur 1.019 1.003 - 1.030 MARY JANE Comment:Testing performed by : [address] [address] pH, urine 7.0 MARY JANE Comment: Interpretive [...] formation. Source: [facility] [employer] Current Interpretive Data was last revised on 2017 Testing performed by: [address] [address] Protein, ur ql Negative Negative MARY JANE Comment:Testing performed by : [address] [address] Glucose, ur ql 4+(A) Negative MARY JANE Comment:Testing performed by : [address] [address] Ketones, ur Negative Negative MARY JANE Comment:Testing performed by : [address] [address] Bilirubin, ur Negative Negative MARY JANE Comment:Testing performed by : [address] [address] Blood, ur Negative Negative MARY JANE Comment:Testing performed by : [address] [address] Urobilinogen, ur <2.0 <2.0 mg/dL MARY JANE Comment:Testing performed by : [address] [address] Nitrite, ur Negative Negative MARY JANE Comment:Testing performed by : [address] [address] Leukocyte esterase, ur Negative Negative MARY JANE Comment:Testing performed by : [address] [address] UA reflex comment Reflex conditions for microscopic UA and culture not met. MARY JANE PHAM Comment:Testing performed by : [facility], [address] [place] [address]., [address] Urine 12/02/2024 6:19 PM CDT 12/02/2024 6:22 PM CDT Patrick Les Sousahu LAB MICROBIOLOGY - GENERAL ORDERABLES Final Result MARY JANE PHAM 0610 [facility] Department [place] [address] * (ABNORMAL) Drugs of Abuse Screen, Urine [...] was last reviewed 2022. Testing performed by: [address] [address] Barbiturates, ur Not Detected CutOff 200ng/mL MARY JANE PHAM Comment: Interpretive Data - Barbiturates: Samples containing greater than 200 ng/mL secobarbital or other cross-reacting barbiturate compounds are reported as positive. False positive and false negative results are possible. Confirmatory testing required for definitive results. Current Interpretive Data was last reviewed 2022. Testing performed by: [address] [address] Benzodiazepines, ur Not Detected CutOff 100ng/mL MARY JANE PHAM Comment: Interpretive Data - Benzodiazepines: Samples containing greater than 100 ng/mL nordiazepam or other cross-reacting compounds are reported as positive. False positive and false negative results are possible. Confirmatory testing required for definitive results. Current Interpretive Data was last reviewed 2022. Testing performed by: [address] [address] Cannabinoids, ur Not Detected CutOff 50 ng/mL MARY JANE PHAM Comment: Interpretive Data - Cannabinoids: Samples containing greater than 50 ng/mL delta-9 THC -COOH or other cross- reacting compounds are reported as positive. False positive and false negative results are possible. Confirmatory testing required for definitive results. Current Interpretive Data was last reviewed 2022. Testing performed by: [facility], [address] [place] [address]., [address] Cocaine, ur Not Detected CutOff 150ng/mL [facility] Comment: Interpretive Data - Cocaine: Samples containing greater than 150 ng/mL benzoylecgonine or other cross- reacting compounds are reported as positive. False positive and false negative results are possible. Confirmatory testing required for definitive results. Current Interpretive Data was last reviewed 2022. Testing performed by: [address] [address] Fentanyl, Ur Not Detected Cutoff 1 ng/mL [facility] Comment: Interpretive Data - Fentanyl: Samples containing greater than 1 ng/mL fentanyl or other cross-reacting fentanyl compounds are reported as positive. False positive and false negative results are possible. Confirmatory testing required for definitive results. Current Interpretive Data was last reviewed 2022. Testing performed by: [address] [address] Methadone, ur Not Detected CutOff 300ng/mL [facility] Comment: Interpretive Data - Methadone: Samples containing greater than 300 ng/mL d,l-methadone or other cross-reacting compounds are reported as positive. False positive and false negative results are possible. Confirmatory testing required for definitive results. Current Interpretive Data was last reviewed 2022. Testing performed by: [address] [address] Opiates, ur Screen Positive, presumptive (A) CutOff 300ng/mL [facility] Comment: Interpretive Data - Opiates: Samples containing greater than 300 ng/mL morphine or other cross-reacting compounds are reported as positive. False positive and false negative results are possible. Confirmatory testing required for definitive results. Current Interpretive Data was last reviewed 2022. Testing performed by: [address] [address] Oxycodone, ur Not Detected CutOff 100ng/mL [facility] Comment: Interpretive Data - Oxycodone: Samples containing greater than 100 ng/mL oxycodone or other cross-reacting compounds are reported as positive. False positive and false negative results are possible. Confirmatory testing required for definitive results. Current Interpretive Data was last reviewed 2022. Testing performed by: [address] [address] Phencyclidine, ur Not Detected CutOff 25 ng/mL MARY JANE Comment: Interpretive Data - Phencyclidine: Samples containing greater than 25 ng/mL phencyclidine or other cross-reacting compounds are reported as positive. False positive and false negative results are possible. Confirmatory testing required for definitive results. Current Interpretive Data was last reviewed 2022. Testing performed by: [address] [address] Urine Creatinine 64 mg/dL MARY JANE Comment: Interpretive Data Urine Creatinine: < 10 mg/dL is extremely dilute = or > 10 but < 20 mg/dL is dilute = or > 20 mg/dL is normal Current Interpretive Data was last revised on 2017. Testing performed by: [address] [address] Urine 12/02/2024 6:19 PM CDT 12/02/2024 6:22 PM CDT Narrative [facility] - 12/02/2024 6:46 PM CDT Drug of Abuse screening is performed by immunoassay for medical purposes only. This is not to be used for Pain Management purposes. Patrick Rice DO LAB URINE ORDERABLES Final Result [facility] [address] [facility] Department [place] [address] * (ABNORMAL) D-dimer, quantitative (12/02/2024 [...] last revised on 2019. Testing performed by: [address] [address] Blood 12/02/2024 6:19 PM CDT 12/02/2024 6:22 PM CDT us Patrick Rice DO LAB BLOOD ORDERABLES Final Result Performing Organization Address City/[facility]/ZIP Co de Phone Number [address] [place] [address] * (ABNORMAL) Troponin T high-sensitivity 2-hour (12/02/2024 5:53 PM CDT) Trop T hs 23(H) <=14 ng/L Comment: Interpretive Data For further hscTnT resources including the diagnostic algorithm and an aid in interpretation, copy and paste this link: https://nrl.testcatalog.org/show/hsTrop Current Interpretive Data last revised 2020. Testing performed by: [address] [address] Trop T hs delta -2 ng/L MARY JANE Comment:Testing performed by : [address] [address] Trop T hs interp Insignificant MARY JANE Comment:Testing performed by : [address] [address] Blood 12/02/2024 5:53 PM CDT 12/02/2024 5:55 PM CDT us Gil Diez DO LAB BLOOD ORDERABLES Final Result Performing Organization Address City/[facility]/ZIP Co de Phone Number CERNER [address] [place] [address] * POCT glucose (12/02/2024 4:25 PM CDT) [facility] Glucose, POC 195 70 - 199 mg/dL Comment:Testing performed by : [facility], [address] [place] [address]., [address] Blood 12/02/2024 4:25 PM CDT 12/02/2024 4:25 PM CDT Notinfile Unknown LAB POCT ORDERABLES - DEVICE F inal Result Performing Organization Address City/[facility]/ZIP Co de Phone Number [address] [address] * (ABNORMAL) Troponin T high-sensitivity series (baseline, 2hr, 4hr, 6hr) (12/02/2024 3:57 PM CDT) [facility] Trop T hs 25(H) <=14 ng/L Comment: Interpretive Data For further hscTnT resources including the diagnostic algorithm and an aid in interpretation, copy and paste this link: https://nrl.testcatalog.org/show/hsTrop Current Interpretive Data last revised 2020. Testing performed by: [facility], [address] [place] [address]., [address] Blood 12/02/2024 3:57 PM CDT 12/02/2024 4:11 PM CDT us Patrick Rice DO LAB BLOOD ORDERABLES Final Result [address] [place] [address] * eGFR (12/02/2024 3:57 PM CDT) [facility] eGFR >90 >=60 mL/min/1. 73 m2 Comment: [...] was last reviewed 2021. Testing performed by: [address] [address] Blood 12/02/2024 3:57 PM CDT 12/02/2024 4:11 PM CDT Patrick Rice DO LAB BLOOD ORDERABLES Final Result MARY JANE [facility] [place] [address] * (ABNORMAL) Differential, auto (12/02/2024 3:57 PM CDT) Neutrophil abs 7.87(H) 1.50 - 6.50 K/cumm Comment:Testing performed by : [address] [address] Imm gran abs 0.05 0.00 - 0.10 K/cumm MARY JANE Comment:Testing performed by : [address] [address] Lymphocyte abs 1.99 0.80 - 3.30 K/cumm MARY JANE Comment:Testing performed by : [address] [address] Monocyte abs 0.54 0.20 - 0.80 K/cumm MARY JANE Comment:Testing performed by : [address] [address] Eosinophil abs 0.10 0.00 - 0.50 K/cumm [facility] Comment:Testing performed by : [address] [address] Basophil abs 0.03 0.00 - 0.10 K/cumm [facility] Comment:Testing performed by : [address] [address] Neutrophil pct 74.4 % [facility] Comment: Interpretive Data Percent cell count reference ranges are not reported, since discordance with absolute values may lead to misinterpretation of CBC data. Current Interpretive Data was last revised on 2017. Testing performed by: [address] [address] Imm gran pct 0.5 % [facility] Comment: Interpretive Data Percent cell count reference ranges are not reported, since discordance with absolute values may lead to misinterpretation of CBC data. Current Interpretive Data was last revised on 2017. Testing performed by: [address] [address] Lymphocyte pct 18.8 % [facility] Comment: Interpretive Data Percent cell count reference ranges are not reported, since discordance with absolute values may lead to misinterpretation of CBC data. Current Interpretive Data was last revised on 2017. Testing performed by: [address] [address] Monocyte pct 5.1 % [facility] Comment: Interpretive Data Percent cell count reference ranges are not reported, since discordance with absolute values may lead to misinterpretation of CBC data. Current Interpretive Data was last revised on 2017. Testing performed by: [address] [address] Eosinophil pct 0.9 % [facility] Comment: Interpretive Data Percent cell count reference ranges are not reported, since discordance with absolute values may lead to misinterpretation of CBC data. Current Interpretive Data was last revised on 2017. Testing performed by: [address] [address] Basophil pct 0.3 % [facility] Comment: Interpretive Data Percent cell count reference ranges are not reported, since discordance with absolute values may lead to misinterpretation of CBC data. Current Interpretive Data was last revised on 2017. Testing performed by: [facility], [address] [place] [address]., [address] Blood 12/02/2024 3:57 PM CDT 12/02/2024 4:14 PM CDT Patrick Rice DO LAB BLOOD ORDERABLES Final Result MARY JANE [address] [facility] [place] [address] * Pro B-type natriuretic peptide (12/02/2024 3:57 [...] Last Revised Date: 2017. Testing performed by: [address] [address] Blood 12/02/2024 3:57 PM CDT 12/02/2024 4:11 PM CDT Patrick Les Sousahu LAB BLOOD ORDERABLES Final Result MARY JANE 45[address] [facility] Department [place] [address] * (ABNORMAL) CBC with auto differential (12/02/2024 3:57 PM CDT) WBC 10.58(H) 3.80 - 9.90 K/cumm Comment:Testing performed by : [address] [address] Hgb 12.2 11.9 - 15.5 g/dL MARY JANE Comment:Testing performed by : [address] [address] Hct 37.6 35.6 - 45.5 % MARY JANE Comment:Testing performed by : [address] [address] Plt 263 150 - 400 K/cumm MARY JANE Comment:Testing performed by : [address] [address] MPV 10.2 9.1 - 12.3 fL MARY JANE Comment:Testing performed by : [address] [address] RBC 4.19 3.90 - 5.20 M/cumm MARY JANE Comment:Testing performed by : [address] [address] MCV 89.7 81.3 - 96.4 fL MARY JANE Comment:Testing performed by : [address] [address] MCH 29.1 27.1 - 33.3 pg MARY JANE PHAM Comment:Testing performed by : [address] [address] MCHC 32.4 32.3 - 35.7 g/dL MARY JANE PHAM Comment:Testing performed by : [address] [address] RDW CV 13.7 11.1 - 14.9 % MARY JANE PHAM Comment:Testing performed by : [address] [address] RDW SD 45.0 35.7 - 48.1 fL MARY JANE PHAM Comment:Testing performed by : [address] [address] NRBC abs 0.00 0.00 - 0.01 K/cumm MARY JANE PHAM Comment:Testing performed by : [address] [address] Blood 12/02/2024 3:57 PM CDT 12/02/2024 4:14 PM CDT Patrick Rice DO LAB BLOOD ORDERABLES Final Result MARY JANE [facility] [place] [address] * (ABNORMAL) Comprehensive metabolic panel (12/02/2024 3:57 PM CDT) Sodium 139 135 - 145 mmol/L Comment:Testing performed by : [address] [address] Potassium, pl 4.5 3.3 - 4.9 mmol/L MARY JANE PHAM Comment:Testing performed by : [address] [address] Chloride 101 97 - 110 mmol/L MARY JANE Comment:Testing performed by : [address] [address] CO2 26 22 - 32 mmol/L MARY JANE Comment:Testing performed by : [address] [address] Anion gap 12 2 - 15 mmol/L MARY JANE Comment:Testing performed by : [address] [address] BUN 17 6 - 25 mg/dL MARY JANE Comment:Testing performed by : [address], [address] Creatinine 0.60 0.60 - 1.10 mg/dL MARY JANE Comment:Testing performed by : [address] [address] Glucose 252(H) 70 - 199 mg/dL MARY [...] was last revised 2022. Testing performed by: [address] [address] Calcium 9.8 8.5 - 10.3 mg/dL MARY JANE Comment:Testing performed by : [address] [address] Bilirubin, total 0.5 0.1 - 1.2 mg/dL MARY JANE Comment:Testing performed by : [address] [address] Protein, pl 7.8 6.5 - 8.5 g/dL MARY JANE Comment:Testing performed by : [address] [address] Albumin 4.0 3.5 - 5.0 g/dL MARY JANE Comment:Testing performed by : [address] [address] Alk phos 79 40 - 130 Units/L MARY JANE Comment:Testing performed by : [address] [address] ALT 23 7 - 45 Units/L MARY JANE Comment:Testing performed by : [address] [address] AST 22 10 - 45 Units/L MARY JANE Comment:Testing performed by : [address] [address] Blood 12/02/2024 3:57 PM CDT 12/02/2024 4:11 PM CDT Patrick Rice DO LAB BLOOD ORDERABLES Final Result MARY JANE [facility] [address] [facility] [place] [address] * XR Chest 1 Vw Portable (If [...] Wilfrid Valdez M.D. MZ: FAUSTINA Report ID: [id number] Reading Location: [id number] Procedure Note Wilfrid Valdez MD - 12/02/2024 [...] Wilfrid Valdez M.D. MZ: MZ Report ID: [id number] Reading Location: [place] [address] Patrick Rice DO IMG XR PROCEDURES Final Res ult * ECG 12 lead (12/02/2024 3:33 PM CDT) Ventricular Rate EKG/Min 78 BPM [facility] Atrial Rate 78 BPM [facility] CA-Interval (MSEC) 122 ms [facility] QRS-Interval (MSEC) 82 ms [facility] QT-Interval (MSEC) 380 ms [facility] QTc 433 ms [facility] P [place] 7 degrees [facility] R [place] 3 degrees [facility] T [place] 11 degrees [facility] Diagnosis Normal sinus rhythm Normal ECG When compared with ECG of 01-JUL-2024 14:05, No significant change Confirmed by SULTAN MARTINEZ M.D. ([id number]) on 12/03/2024 4:50:33 PM [facility] 12/02/2024 3:33 PM CDT 12/03/2024 4:50 PM CDT us Patrick Rice DO ECG ORDERABLES Final Resul t [facility] * Dexa Axial Skeleton Bone Density 1 or 2 Site (08/02/2022 10:53 AM CDT) Anatomical Region Laterality Modality Body N/A Radiographic Lizeth ging Narrative 08/02/2022 3:34 PM CDT Patient Name: Mohsen Marques Date of : 1955 Date of scan: 08/02/2022 Bone mineral density was performed on a HoloEasy Square Feet Discovery Densitometer. Based on machine cross-calibration and [...] by the International Society of Clinical Densitometry. [id number] us Khris Arthur MD IMG DXA PROCEDURES [...] agrees with it. ACC# Date Time Exam [id number] Aug 19, 2016 14:27:00 [facility] [address] Diag Mamm, inc CAD, unilat L Technologist(s): Carla Harris; ; [id number] Aug 19, 2016 15:39:00 [facility] [address]605 Breast US unilateral, ltd L ACC# Date Time Exam [id number] Aug 19, 2016 14:27:00 [facility] [address]239 DiaBrayola Mamm, inc CAD, unilat L Technologist(s): Carla Harris; ; [id number] Aug 19, 2016 15:39:00 [facility] 67[address] Breast US unilateral, ltd L EXAMINATION: LEFT [...] SARABIA M.D. on Aug 19 2016 4:20P [id number] Procedure Note Miscellaneous, Not In File / Provider, MD Tyler - 09/17/2016 ANTHONY SARABIA M.D. JUDY RINCON M.D. FINAL REPORT The radiology attending physician has personally reviewed this study, and has reviewed and/or edited this written report and agrees with it. ACC# Date Time Exam [id number] Aug 19, 2016 14:27:00 [facility] 19879 Diag Mamm, inc CAD, unilat L Technologist(s): Carla Harris; ; [id number] Aug 19, 2016 15:39:00 [facility] 03177 Breast US unilateral, ltd L ACC# Date Time Exam [id number] Aug 19, 2016 14:27:00 [facility] [address]34[address] Diag Mamm, inc CAD, unilat L Technologist(s): Carla Harris; ; [id number] Aug 19, 2016 15:39:00 [facility] [address]25[address] Breast US unilateral, ltd L EXAMINATION: LEFT [...] SARABIA M.D. on Aug 19 2016 4:20P [id number] us Not In File Miscellaneous IMG MAMMO PROCEDURES F inal Result from Last 3 Months or Most Recently Relevant to Health Maintenance Insurance IDPR [facility] MEDICARE ADVANTAGE [facility] MEDICARE ADVANTAGE IDPA IDPA [facility] MEDICARE ADVANTAGE Advance Directives For more information, please contact: [phone] Documents on File Type Date Recorded Patient Chief Operator Lock Tender Expl anation ADVANCE DIRECTIVE 12/23/2021 2:49 PM Power of Masking Machine Operator-Medical ADVANCE DIRECTIVE 12/23/2021 2:49 PM Living [...] Agents on File Name Relationship Healthcare Agent [facility] p Communication Yunior Marques Daughter Health Care Agent Jimmie Marques Spouse First Alternate Health Care Agent Care Teams Radiation Physicist Relationship Specialty Start Date End Date Justen Gale MD [address] [place] [address] PCP - General 10/09/17 Liu Jerez MD Consulting Physician Gastroenterology 07/28/17 [place] [address] [facility] [address] [place] [address] Consulting Physician Pulmonary Disease 08/03/17 Khris Arthur MD [address] [facility] [address] [place] [address] Medical Oncologist/Grinder Set Up Operator [facility] On[facility] 10/23/17 [place] [address] [facility] [address] [place] [address] Surgeon Orthopedic Surgery 10/23/17 [place] [address] [facility] [address] [place] [address] Consulting Physician Pain Management 10/23/17 [place] [address] [facility] [address] [place] [address] Referring Physician General Surgery 01/26/18 [place] [address] [facility] [address] [place] [address] Consulting Physician Neurology 01/26/18
--- OUTSIDE RECORDS SUMMARY | 2025-02-25 04:11 | XMS_ITS | Encounter Summary ---
Author Organization [facility] Address [address] [place] [address] Phone Care Team Providers Care Terminal Makeup Operator Name Role Phone Justen Gale MD Primary Care Provider [phone] David Roberts APRN, DISTRIBUTION SYSTEMS SUPERINTENDENT Unavailable [phone] Annel Rod MD Unavailable Reason for Visit * Reason Onset Date Comments Form Completion 02/24/2025 Encounter Details Date Type Department Care Team (Late st Contact Info) Description 02/24/2025 Telephone [facility] [address] [place] [phone] Justen Gale MD #[address] [address] Form Completion Social History Tobacco Use Types [...] you attend chur ch or amish services? More than 4 times [...] 1-9 0 07/23 [facility] [...] in a jail (including now)? No 08/06/2024 AUDIT-C Answer Date [...] patient self) back at primary phone number [phone] regarding above referenced patient. Secondary phone number is na. Call is concerning form filled out for uJan. She is asking if the office has [...] the address on file. Account number is [id number]. Please MyChart message once it has been sent to Juan. Patient's PCP is Justen Gale MD. Thank you. AND DECK REMOVER documented in this encounter Plan of Treatment Upcoming Encounters Date Type Department Care Team (Late st Contact Info) Description 03/19/2025 2:00 PM HULL AND DECK REMOVER Office Visit [facility] Endocrinology [facility] #2 [place] [address] Annel Rod MD #[address] [place] [address] 05/29/2025 1:30 PM HULL AND DECK REMOVER Office Visit [facility] Family Medicine [facility] #2 [place] [address] Justen Gale MD #2 [facility] [address] [place] [address] documented as of this encounter Visit Diagnoses Not on filedocumented in this encounter Additional Health Concerns Assessment Noted Time PHQ-9 Depression Total Score: 0 08/02/19 25 1:09 PM CDT documented as of this encounter Care Teams Terminal Makeup Operator Relationship Specialty Start Date End Date Justen Gale MD #2 [facility] [address] [place] [address] PCP - General Family Medicine 10/17/17 David Roberts APRN, DISTRIBUTION SYSTEMS SUPERINTENDENT #2 [place] [address] Nurse Practitioner Advanced Practice Nurse 01/31/22 Annel Rod MD #[address] [facility] [address] [address] Consulting Physician Endocrinology 07/01/22 documented as of this encounter
--- OUTSIDE RECORDS SUMMARY | 2025-02-25 04:11 | XMS_ITS | Encounter Summary ---
Author Organization [facility] Healthcare Address [address] [place] [address] Care Team Providers Care Solar Engineer Name Role Phone Liu Jerez MD Unavailable [phone] Albert Corbin MD Unavailable [phone] Justen Gale MD Primary Care Provider [phone] Khris Arthur MD Unavailable [phone] Ko Melendez MD Unavailable John Paul Moyer MD Unavailable [phone] Annel Rod MD Unavailable Anali MARSHALL MD, Carlos M. Unavailable Encounter Details Date Type Department Care Team (Late st Contact Info) Description 12/17/2024 [facility] Subsequent Outreach [facility] [address] [place] [address] Madelyn Cruz, THREAD GRINDER [address] [place] [address] Social History Tobacco Use Types Packs/Day [...] often do you attend chur ch or hindu services? More than 4 times per year [...] often do you attend chur ch or hindu services? More than 4 times per year [...] in a fci (including now)? No 12/03/2024 [facility] Utilities Answer Date Recorded In the [...] on file Legal Sex Female 12:24 AM HISTORY DEPARTMENT CHAIR Gender Identity Not on file Sexual Orientation Not on file documented as of this encounter Plan of Treatment Not on file documented as of this encounter Visit Diagnoses Not on filedocumented in this encounter Care Teams Solar Engineer Relationship Specialty Start Date End Date Justen Gale MD 2 [facility] [address] [place] [address] PCP - General 10/09/17 Liu Jerez MD Consulting Physician Gastroenterology 07/28/[address] [place] [address] [facility] [address] [place] [address] Consulting Physician Pulmonary Disease 08/03/17 Khris Arthur MD [address] [facility] [address] [place] [address] Medical Oncologist/Multiple Games Dealer Medical Oncology 10/23/17 [place] [address] [facility] [address] [place] [address] Surgeon Orthopedic Surgery 10/23/17 [place] [address] [address] Consulting Physician Pain Management 10/23/17 [place] [address] [facility] [address] [place] [address] Referring Physician General Surgery 01/26/18 [place] [address] [facility] [address] [place] [address] Consulting Physician Neurology 01/26/18 documented as of this encounter
--- OUTSIDE RECORDS SUMMARY | 2025-02-25 04:11 | XMS_ITS | Clinical Summary ---
Author Organization [facility] Address [address] [place] [address] Phone Care Team Providers Care Hospice Nurse Name Role Phone Justen Gale MD Primary Care Provider [phone] David Roberts APRN, LEAD CAREGIVER Unavailable [phone] Annel Rod MD Unavailable Allergies Active Allergy [...] Each 1 Active OneTouch Delica Lancets 33G [facility] 1 Lancet by Does not apply route 4 times daily. 400 Lancet 3 1 Active naloxone HCl (Narcan) 4 MG/0.1ML Liquid 2 Active diphenhydrAMIN E (BENADRYL) 25 MG Capsule Take 25 mg by mouth every 6 hours as needed. Active Continuous Blood Gluc Sensor (FreeStyle Eileen 2 Sensor) [facility] APPLY 1 SENSOR AND WEAR FOR 14 DAYS TO CHECK BLOOD SUGAR 6 Each 1 4 Active albuterol 108 (90 Base) MCG/ACT Aerosol Solution take 2 Puffs by inhalation. 1 Active gabapentin (NEURONTIN) 300 MG Capsule Take 300 mg by mouth. 4 Active HYDROcodone-ac etaminophen (NORCO) 10-325 MG Tablet Take 1 Tablet by mouth. 4 Active Multiple Vitamins-Polk als (WOMENS MULTI PO) Take by mouth. [...] Overview: Added automatically from request for surgery [id number] Lymphedema of left upper extremity 08/09/2016 Pulmonary embolism 08/09/2016 Overview (11/09/2017): Last Assessment & Plan: On Rivaroxaban Arthralgia of ankle 01/26/2015 Resolved Problems Problem Noted Date Diagnosed Date Resolved Date Cellulitis of breast 11/11/2014 025 Encounters Date Type Department Care Team Description 02/24/2025 [facility] [address] [place] [address] Justen Gale MD involuntary movement 02/24/2025 [facility] [address] [place] [address] Justen Gale MD Form Completion 02/14/2025 [facility] [place] [phone] Justen Gale MD Medication Renewal Reviewed 02/14/2025 MyChart RX Renewal [facility] #2 [place] [phone] Pili Elkins APRN, NETTA Medication Renewal Reviewed 02/08/2025 Nurse Triage [facility] Central Call Center [address] [place] [phone] Justen Gale MD Shortness of Breath; High Blood Sugar 01/29/2025 Nurse Triage [facility] Central Call Center [address] [place] [phone] Justen Gale MD Facial Swelling 01/23/2025 MyChart RX Renewal [facility] Endocrinology [facility] #2 [place] [phone] Annel Rod MD Medication Renewal Reviewed 01/18/2025 [facility]ill [facility] [place] [address] Pili Elkins APRN, LEAD CAREGIVER Medication Refill 01/08/2025 Nurse Triage [address] [phone] Justen Gale MD High Blood Sugar (Under Dr Rod, not Dr Gale) 01/08/2025 MyChart RX Renewal [facility] Endocrinology [facility] #[address] [place] [phone] Annel Rod MD Medication Renewal Reviewed 12/30/2024 MyChart RX Renewal [facility] #[address] [place] [phone] Justen Gale MD Medication Renewal Reviewed 12/30/2024 MyChart RX Renewal [facility] #[address] [place] [address] Pili Elkins APRN, NETTA Medication Renewal Reviewed 12/24/2024 Telephone [facility] Central Call Center [address] [place] [phone] Justen Gale MD Advice Only; Results 12/19/2024 Telephone [facility] Family Medicine [facility] #[address] [place] [address] Justen Gale MD 12/18/2024 Telephone [facility] Central Call Center [address] [place] [phone] Justen Gale MD Results 12/17/2024 3:30 PM CDT Office Visit [facility] Endocrinology [facility] #[address] [place] [phone] Annel Rod MD Type 2 diabetes mellitus [...] - 12/17/2024 11:59 PM CDT [facility] [address] [place] [address] Justen Gale MD Discharge Disposition: Discharged to home or Selfcare 12/17/2024 Travel 12/14/2024 Nurse Triage [facility] Central Call Center [address] [place] [phone] Justen Gale MD Nausea; Shortness of Breath; Dizziness; Generalized Weakness 12/14/2024 Telephone [facility] Central Call Center [address] [place] [phone] Justen Gale MD Advice Only 12/06/2024 Telephone [facility] Central Call Center [address] [place] [phone] Justen Gale MD Post-Hospital Follow-up 11/25/2024 10:00 AM CDT Office Visit [facility] [address] [place] [address] Pili Elkins, ZAMZAM, LEAD CAREGIVER Acute diastolic congestive heart failure (HCC) (Primary Dx); Type 2 diabetes mellitus with diabetic polyneuropathy, with long-term current use of insulin (HCC); OAB (overactive bladder); Polymyalgia rheumatica (HCC) Discharge Disposition: Discharged to home or Selfcare 11/25/2024 Travel from Last 3 Months Immunizations Immunization Administration Dates Next Due Covid-19 Vaccine, Vector-nr, Rs-ad26, Pf, 0.5 Ml ([employer]) 06/29/2020 Influenza Vaccine greater than 3 yrs [...] oz pur e alcohol) [facility] Utilities Answer Date Recorded In the past 12 months has [employer], gas, oil, or water [employer] threatened to shut off services in [...] any time in the past 12 m [facility], were you homeless or living in a intermediate (including now)? No 08/06/2024 AUDIT-C Answer Date [...] st Contact Info) Description 03/19/2025 2:00 PM OVERCASTER Office Visit [facility] - Endocrinology - [place] #2 [place] [phone] Annel Rod MD #2 [facility] [address] [place] [phone] 05/29/2025 1:30 PM OVERCASTER Office Visit [facility] - Family Medicine - [place] #[address] [place] [phone] Justen Gale MD #2 [facility] [address] [place] [address] Health Maintenance Due Date Last Done Comments [...] Baldomero Laboy D.O. AP: AP Report ID: [id number] Reading Location: [id number] Procedure Note Baldomero Laboy DO - 12/18/2024 [...] Baldomero Laboy D.O. AP: AP Report ID: [id number] Reading Location: [id number] IMPRESSION: No significant change in appearance of the chest when compared to the previous chest radiograph dated 12/11/2024. Justen Gale MD IMG DIAGNOSTIC ORDERABLES Fin al Result * XR - CHEST (11/27/2024 12:00 AM CDT) 11/27/2024 Provider Scan IMG DIAGNOSTIC ORDERABLES Final Result Performing Organization Address City/[facility]/ZIP Co de Phone Number SCAN * CMP (COMPREHENSIVE METABOLIC PANEL) (11/18/2024 12:00 AM CDT) 11/18/2024 Provider Scan CHEMISTRY ORDERABLES Final Resul t Performing Organization Address City/[facility] Co de Phone Number SCAN * HEMOGLOBIN, A1C (10/02/2023 12:00 AM CDT) HGB-A1C 7.8 SCAN 10/02/2023 Provider Scan CHEMISTRY ORDERABLES Final Resul t Performing Organization Address [facility] Co de Phone Number SCAN * HM COLONOSCOPY (01/09/2020) Genaro Jensen DO PROCEDURE/MINOR SURGICAL ORDERA BLES Final Result * AMB REFERRAL TO PODIATRY (08/13/2019) Alvarez Mensah MD OUTPATIENT REFERRALS Final Res ult * POCT STOOL, OCCULT BLOOD, DIAGNOSTIC (09/07/2018 1:20 PM CDT) OCCULT BLOOD, STOOL Negative Negative, Other POC HEMOCULT CONTROL Hadoop Infrastructure Architect Pass 09/07/2018 1:20 PM CDT Pili Elkins APRN, LEAD CAREGIVER POINT OF CARE TEST ING (MANUAL) Final Result from Last 3 Months or Most Recently Relevant to Health Maintenance Insurance MEDICAID [place] MEDICARE C [facility] Care Teams Hospice Nurse Relationship Specialty Start Date End Date Justen Gale MD #[address] [address] PCP - General Family Medicine 10/17/17 David Roberts APRN, NETTA #[address] [place] [address] Nurse Practitioner Advanced Practice Nurse 01/31/22 Annel Rod MD #2 [place] [phone] Consulting Physician Endocrinology 07/01/22
--- OUTSIDE RECORDS SUMMARY | 2025-02-25 04:11 | XMS_ITS | Encounter Summary ---
Author Organization [facility] Address [address] [place] [address] Phone Care Team Providers Care Pan Washer Name Role Phone Justen Gale MD Primary Care Provider David Roberts APRN, HOUSE DETECTIVE Unavailable [phone] Annel Rod MD Unavailable Reason for Visit * Reason Comments Medication Refill Encounter Details Date Type Department Care Team (Late st Contact Info) Description 03/13/2021 Refill [facility] [address] [place] [address] Justen Gale MD #[address] [address] Medication Refill Social History Tobacco [...] COVID-19? No / Unsure 03/02/2021 5:05 PM TOP STEEP TENDER documented as of this encounter Plan of Treatment Upcoming Encounters Date Type Department Care Team (Late st Contact Info) Description 03/19/2025 2:00 PM TOP STEEP TENDER Office Visit [facility] Medical [facility] - Endocrinology [facility] #2 [place] [address] Annel Rod MD #[address] [address] 05/29/2025 1:30 PM TOP STEEP TENDER Office Visit [facility] Family Medicine [facility] #2 [place] [address] Justen Gale MD #[address] [address] documented as of this encounter Visit Diagnoses Not on filedocumented in this encounter Additional Health Concerns Infection Onset Date Last Indicated Resolved Time COVID - 19 08/01/2024 08/01/2024 08/01/2024 3:20 PM CDT Respiratory Rule-Out 11/18/2024 11/18/2024 025 7:18 AM CDT Assessment Noted Time PHQ-9 Depression Total Score: 0 07/21/19 21 3:00 PM CDT documented as of this encounter Care Teams Pan Washer Relationship Specialty Start Date End Date Justen Gale MD #[address] [address] PCP - General Family Medicine 10/17/17 David Roberts, BRINE TANK SEPARATOR OPERATOR, HOUSE DETECTIVE #[address] [place] [address] Nurse Practitioner Advanced Practice Nurse 01/31/22 Annel Rod MD #[address] [address] Consulting Physician Endocrinology 07/01/22 documented as of this encounter
--- OUTSIDE RECORDS SUMMARY | 2025-02-25 04:11 | XMS_ITS | Encounter Summary ---
Author Organization [facility] Address [address] [place] [address] Phone Care Team Providers Care Case Repairer Name Role Phone Justen Gale MD Primary Care Provider [phone] David Roberts APRN, AIRCRAFT INSPECTION RECORD CLERK Unavailable [phone] Annel Rod MD Unavailable Reason for Visit * Reason Comments Medication Refill Encounter Details Date Type Department Care Team (Late st Contact Info) Description 02/17/2021 Refill [facility] - [facility] Medicine [facility] #2 [place] [phone] Justen Gale MD #[address] [address] Medication Refill Social History Tobacco Use Types [...] 06/05/20 Office Visit Pili Elkins APRN, NETTA [facility] Showing recent visits within past 365 days and meeting all other requirements Future Appointments Date Type Provider Dept 03/02/21 Appointment Vince Hermosillo MD [facility] Showing future appointments within next 90 days and meeting all other requirements documented in this encounter Plan of Treatment Upcoming Encounters Date Type Department Care Team (Late st Contact Info) Description 03/19/2025 2:00 PM SCHOOL PLANT CONSULTANT Office Visit [facility] - Endocrinology - [place] #2 [facility] [place] [address] Annel Rod MD #2 [facility] [address] [place] [address] 05/29/2025 1:30 PM SCHOOL PLANT CONSULTANT Office Visit [facility] Family Medicine - [place] #[address] [place] [address] Justen Gale MD #2 [facility] [address] [place] [address] documented as of this encounter Visit Diagnoses Not on filedocumented in this encounter Additional Health Concerns Infection Onset Date Last Indicated Resolved Time COVID - 19 08/01/2024 08/01/2024 08/01/2024 3:20 PM CDT Respiratory Rule-Out 11/18/2024 11/18/2024 025 7:18 AM CDT Assessment Noted Time PHQ-9 Depression Total Score: 0 07/21/19 21 3:00 PM CDT documented as of this encounter Care Teams Case Repairer Relationship Specialty Start Date End Date Justen Gale MD #2 [facility] [address] [place] [address] PCP - General Family Medicine 10/17/17 David Roberts APRN, AIRCRAFT INSPECTION RECORD CLERK #2 [facility] [place] [address] Nurse Practitioner Advanced Practice Nurse 01/31/22 Annel Rod MD #[address] [address] Consulting Physician Endocrinology 07/01/22 documented as of this encounter
--- OUTSIDE RECORDS SUMMARY | 2025-02-25 04:11 | XMS_ITS | Encounter Summary ---
Author Organization [facility] Address [address] [place] [address] Phone Care Team Providers Care Legal Aide Name Role Phone Justen Gale MD Primary Care Provider David Roberts APRN, CONCRETE PUMP OPERATOR Unavailable [phone] Annel Rod MD Unavailable Encounter Details Date Type Department Care Team (Late st Contact Info) Description 06/05/2020 [facility] [address] [place] [address] Pili Elkins, ZAMZAM, CONCRETE PUMP OPERATOR #[address] [address] Frequency of micturition Social History [...] COVID-19? No / Unsure 2020 11:37 AM CSW documented as of this encounter Plan of Treatment Upcoming Encounters Date Type Department Care Team (Late st Contact Info) Description 03/19/2025 2:00 PM CSW Office Visit [facility] Medical [facility] - Endocrinology [facility] #2 [place] [address] Annel Rod MD #2 [facility] [address] [place] [address] 05/29/2025 1:30 PM CSW Office Visit [facility] - Family Medicine [facility] #[address] [place] [address] Justen Gale MD #2 [facility] [address] [place] [address] documented as of this encounter Procedures Procedure Name Priority Date/Time Associated Diagnosis Comments URINALYSIS REFLEX IF INDICATED BY ABNORMAL RESULTS Routine 06/05/2020 4:45 PM CSW Frequency of micturition documented in this encounter Results * (ABNORMAL) URINALYSIS REFLEX IF INDICATED BY ABNORMAL RESULTS (06/05/2020 4:45 PM CSW) SPECIFIC GRAVITY 1.020 1.003 - 1.030 06/05/2020 5:19 PM CSW [facility] URINE PH 5.0 5.0 - 9.0 06/05/2020 5:19 PM [facility] WBC ESTERASE Negative Negative 06/05/2020 5:19 PM CSW [facility] NITRITE Negative Negative 06/05/2020 5:19 PM [facility] PROTEIN, RANDOM URINE Negative Negative 06/05/2020 5:19 PM [facility] URINE GLUCOSE, QUAL Negative Negative 06/05/2020 5:19 PM [facility] URINE KETONES Negative Negative 06/05/2020 5:19 PM [facility] UROBILINOGEN Normal Normal mg/dL 06/05/2020 5:19 PM [facility] URINE BILIRUBIN Negative Negative 5:19 PM CS[facility] URINE BLOOD 25 /uL(A) Negative leandro/ul 06/05/2020 5:19 PM [facility] URINALYSIS COLOR Yellow 06/05/19 5:19 PM [facility] URINALYSIS CLARITY Clear 06/05/2020 5:19 PM CSW [facility] WBC (Urine) 0-5 Negative, 0-5 /hpf 06/05/2020 5:19 PM CSW [facility] URINE RBC'S 3-5(A) Negative, 0-2 /hpf 06/05/2020 5:19 PM CSW [facility] EPITHELIAL CELLS Small amount /lpf 2020 5:19 PM CSW [facility] BACTERIA, URINE Few(A) Negative /hpf 06/05/2020 5:19 PM CSW [facility] Urine URINE SPECIMEN / Unknown Non-Phlebotomy Collection / Unknown 06/05/2020 4:45 PM CSW 06/05/2020 5:00 PM CSW us Pili Elkins MEXICAN FOOD MAKER, CONCRETE PUMP OPERATOR URINE ORDERABLES F inal Result [facility] #1 [place] [address] documented in this encounter Visit Diagnoses Diagnosis [...] as of this encounter Care Teams Legal Aide Relationship Specialty Start Date End Date Justen Gale MD #2 [facility] [address] [place] [address] PCP - General Family Medicine 10/17/17 David Roberts, MEXICAN FOOD MAKER, CONCRETE PUMP OPERATOR #2 [place] [address] Nurse Practitioner Advanced Practice Nurse 01/31/22 Annel Rod MD #2 [facility] [address] [place] [address] Consulting Physician Endocrinology 07/01/22 documented as of this encounter
--- OUTSIDE RECORDS SUMMARY | 2025-02-25 04:11 | XMS_ITS | Encounter Summary ---
Author Organization [facility] Address [address] [place] [address] Phone Care Team Providers Care Rattle Leak And Squeak Repairer Name Role Phone Justen Gale MD Primary Care Provider David Roberts APRN, OBSTETRICAL ANESTHESIOLOGIST Unavailable [phone] Annel Rod MD Unavailable Reason for Visit * Reason Onset Date Comments Sore Throat 06/29/2020 Encounter Details Date Type Department Care Team (Late st Contact Info) Description 06/29/2020 Telephone [facility] #2 [place] [address] Justen Gale MD #[address] [address] Sore Throat Social History Tobacco Use Types [...] COVID-19? No / Unsure 06/29/2020 8:43 AM OIL PIPELINE DISPATCHER documented as of this encounter Miscellaneous Notes * Telephone Encounter - Gail Lucero RN - 06/29/2020 3:53 PM CST Attempted to call mailbox is full. Pt does not need testing PIPELINE DISPATCHER * Telephone Encounter - Vince Hermosillo MD - 06/29/2020 3:13 PM CST No covid testing needed. If the er thought that it was warranted then they would have done this. PIPELINE DISPATCHER * Telephone Encounter - Marlys Sorensen RN - 06/29/2020 8:36 AM CST Patient calling. Patient is calling to schedule Hospital/ED/Prompt-Care follow up appointment. Hospital/ED/Prompt-Care Site: [facility] ED Records Requested: Yes Reason for Hospitalization/ED/Prompt-Care [...] f/up and yearly PAP appointments? Please advise. PIPELINE DISPATCHER documented in this encounter Plan of Treatment Upcoming Encounters Date Type Department Care Team (Late st Contact Info) Description 03/19/2025 2:00 PM OIL PIPELINE DISPATCHER Office Visit [facility] - Endocrinology - [place] #2 [place] [address] Annel Rod MD #2 [facility] [address] [place] [address] 05/29/2025 1:30 PM OIL PIPELINE DISPATCHER Office Visit [facility] Medical [facility] - Family Medicine [facility] #2 [place] [address] Justen Gale MD #2 [facility] [address] [place] [address] documented as of this encounter Visit Diagnoses Not on filedocumented in this encounter Additional Health Concerns Infection Onset Date Last Indicated Resolved Time COVID - 19 08/01/2024 08/01/2024 08/01/2024 3:20 PM CDT Respiratory Rule-Out 11/18/2024 11/18/2024 025 7:18 AM CDT Assessment Noted Time PHQ-9 Depression Total Score: 0 09/08/19 19 1:00 PM CDT documented as of this encounter Care Teams Rattle Leak And Squeak Repairer Relationship Specialty Start Date End Date Justen Gale MD #2 [facility] [address] [place] [address] PCP - General Family Medicine 10/17/17 David Roberts, BUILD MANAGER, OBSTETRICAL ANESTHESIOLOGIST #2 [place] [address] Nurse Practitioner Advanced Practice Nurse 01/31/22 Annel Rod MD #2 [facility] [address] [place] [address] Consulting Physician Endocrinology 07/01/22 documented as of this encounter
--- OUTSIDE RECORDS SUMMARY | 2025-02-25 04:12 | XMS_ITS | Encounter Summary ---
Author Organization [facility] Address [address] [place] [address] Phone Care Team Providers Care Wood Craftsman Name Role Phone Justen Gale MD Primary Care Provider [phone] David Roberts APRN, HOSTESS CASHIER Unavailable [phone] Annel Rod MD Unavailable Reason for Visit * Reason Comments Medication Refill Encounter Details Date Type Department Care Team (Late st Contact Info) Description 03/02/2023 Refill [facility] - Family Medicine [facility] #2 [place] [phone] Justen Gale MD #[address] [address] Medication Refill Social History Tobacco Use Types [...] Tamika Villarreal RN - 03/02/2023 8:51 AM CABINET ABRASIVE SANDBLASTER Medication failed the protocol, provider to review [...] Office Visit Catrina Quiñonez MD [facility] 09/16/22 Office Visit Pili Elkins APRN, NETTA [facility] 07/05/22 Office Visit Pili Elkins APRN, NETTA [facility] 05/02/22 Office Visit Justen Gale MD [facility] 03/03/22 Office Visit Pili Elkins APRN, NETTA [facility] Showing recent visits within past 365 days and meeting all other requirements Future Appointments No visits were found meeting these conditions. Showing future appointments within next 90 days and meeting all other requirements NET ABRASIVE SANDBLASTER documented in this encounter Plan of Treatment Upcoming Encounters Date Type Department Care Team (Late st Contact Info) Description 03/19/2025 2:00 PM CABINET ABRASIVE SANDBLASTER Office Visit [facility] - Endocrinology - [place] #2 [place] [address] Annel Rod MD #[address] [address] 05/29/2025 1:30 PM CABINET ABRASIVE SANDBLASTER Office Visit [facility] - Family [facility] #2 [place] [address] Justen Gale MD #2 [facility] [address] [place] [address] documented as of this encounter Visit Diagnoses Not on filedocumented in this encounter Additional Health Concerns Infection Onset Date Last Indicated Resolved Time COVID - 19 08/01/2024 08/01/2024 08/01/2024 3:20 PM CDT Respiratory Rule-Out 11/18/2024 11/18/2024 025 7:18 AM CDT Assessment Noted Time PHQ-9 Depression Total Score: 8 01/18/20 23 2:24 PM CDT documented as of this encounter Care Teams Wood Craftsman Relationship Specialty Start Date End Date Justen Gale MD #[address] [address] PCP - General Family Medicine 10/17/17 David Roberts APRN, HOSTESS CASHIER #[address] [place] [address] Nurse Practitioner Advanced Practice Nurse 01/31/22 Annel Rod MD #[address] [address] Consulting Physician Endocrinology 07/01/22 documented as of this encounter
--- OUTSIDE RECORDS SUMMARY | 2025-02-25 04:12 | XMS_ITS | Clinical Summary ---
Author Organization [facility] Address [facility] [place] [address] Care Team Providers Care Software Developer Mid Level Name Role Phone Meena Bansal MD Unavailable [phone] Justen Gale MD Primary Care Provider [phone] Allergies Active Allergy Reactions Criticality Noted Date [...] 03/18/2018 Assessment & Plan (03/18/2018 2:55 AM ACCOUNT DEVELOPER): Acute, patient reported as epigastric pain however may be atypical presentation. Troponins negative x2. Also in differential is GERD, PUD - Admit to observation -Follow-up troponins -Monitor vitals -N.p.o. at midnight - Stress echo in a.m. - Consider cardiology consult based on results of stress test -Begin Protonix Epigastric pain 03/18/2018 Assessment & Plan (03/18/2018 5:39 AM ACCOUNT DEVELOPER): Acute, non radiating, worsens with lying down, [...] with long-term current use of insulin 11/06/2017 assisted (current) use 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 inhibitors 10/23/2017 Lumbosacral [...] medications Assessment & Plan (03/18/2018 2:51 AM ACCOUNT DEVELOPER): Chronic, BPs currently 127/78 - To new [...] dinner. Assessment & Plan (03/18/2018 2:53 AM ACCOUNT DEVELOPER): Chronic, patient reports medical compliance with 50 units of Lantus daily and 15 units of Humalog before meals. No recent HbA1c - Monitor POC glucose -[place] home regimen - Consider sliding scale insulin -Follow-up HbA1c Bronchitis 08/20/2017 LUL (obstructive sleep apnea) 08/01/2017 Assessment & Plan (03/18/2018 2:54 AM ACCOUNT DEVELOPER): Chronic, on CPAP at home - Continue home CPAP History of DVT (deep vein thrombosis) 08/01/2017 Assessment & Plan (03/18/2018 2:54 AM ACCOUNT DEVELOPER): Chronic - Continue home Xarelto Chest pressure 08/01/2017 Diet-controlled diabetes mellitus 08/01/2017 History of pulmonary embolism 08/01/2017 Hyponatremia 08/01/2017 Positive blood culture 08/01/2017 Acute pharyngitis 07/27/2017 Generalized weakness 07/27/2017 Nausea and vomiting 07/26/2017 Overview (09/05/2020): Overview: Overview: Added automatically from request for surgery [id number] Overview: Added automatically from request for surgery [id number] Added automatically from request for surgery [id number] Neuropathy 07/05/2017 History of breast cancer 02/06/2017 [...] syndrome Assessment & Plan (03/18/2018 2:54 AM ACCOUNT DEVELOPER): Chronic -Continue home ropinirole Pain of lower [...] Sexual Orientation Straight 03/18/2018 3: 01 AM ACCOUNT DEVELOPER Last Filed Vital Signs Vital Sign Reading [...] topic Meningococcal Vaccine Aged Out No princess lencoh eligible based on patient's age to complete [...] 8.0(H) <5.7 % 10/14/2023 5:50 AM CDT [facility] Comment: ADA GUIDELINES 2010 5.7 TO 6.4% INCREASED RISK OF DIABETES > OR = 6.5% CONSISTENT WITH DIABETES ESTIMATED AVG GLUCOSE 183 mg/dL 10/14/2023 5:50 AM CDT [facility] 10/14/2023 3:40 AM CDT us Peggy Bland MD LABORATORY Final Result [facility] [address] [place] [address], * LIPID PANEL (10/14/2023 3:40 AM CDT) CHOLESTEROL 164 <200 MG/DL 10/14/2023 4:31 AM CDT [facility] TRIGLYCERIDES 114 <150 MG/DL 10/14/2023 4:31 AM CDT [facility] HDL 46 >40.0 MG/DL 10/14/2023 4:31 AM CDT [facility] LDL (CALCULATED) 95 <100 MG/DL 10/14/19 4:31 AM CDT [facility] NON HDL CHOLESTEROL 118 <130 MG/DL 10/13 4:31 AM CDT [facility] CHOL/HDL RATIO 3.6 0.0 - 4.5 10/14/2023 4:31 AM CDT [facility] VLDL CALCULATION 23 5 - 55 MG/DL 10/14/2023 4:31 AM CDT [facility] LIPID INTERPRETATION 10/14/2023 4:31 AM CDT [facility] Comment: NIH CONCENSUS REPORT [...] Final Result [facility] [address] [place] [address], [place] [phone] from Last 3 Months or Most Recently Relevant to Health Maintenance Insurance [facility] [place] [address] MEDICAID MEDICAID [facility] [place] [address] Advance Directives * Full Code (Latest Code [...] 2:42 AM 03/18/2018 4:50 PM Care Teams Software Developer Mid Level Relationship Specialty Start Date End Date Justen Gale MD [address] [address] PCP - General FAMILY PRACTICE 08/20/17 Meena Bansal MD [address] [address] José Luis Lead Vulcanizing Operator CARDIOVASCULAR DISEASE 04/24/16
--- OUTSIDE RECORDS SUMMARY | 2025-02-25 04:12 | XMS_ITS | Encounter Summary ---
Author Organization [facility] Address [address] [place] [address] Phone Care Team Providers Care Pastry Wrapper Name Role Phone Justen Gale MD Primary Care Provider [phone] David Roberts APRN, HAIRSPRING SETTER Unavailable [phone] Annel Rod MD Unavailable Reason for Visit * Reason Comments Medication Refill Encounter Details Date Type Department Care Team (Late st Contact Info) Description 07/12/2022 Refill [facility] - Family Medicine [facility] #2 [place] [address] Justen Gale MD #[address] [address] Medication Refill Social History Tobacco Use Types [...] Office Visit Pili Elkins APRN, NETTA [facility] [place] 05/02/22 Office Visit Justen Gale MD [facility] [place] 03/03/22 Office Visit Pili Elkins APRN, NETTA [facility] [place] 01/03/22 Office Visit Dannielle Berg PAC [facility] 12/07/21 Office Visit Pili Elkins APRN, NETTA [facility] 11/09/21 Office Visit Pili Elkins APRN, NETTA [facility] [place] 10/08/21 Office Visit Angelito Alegria APRN, NETTA [facility] [place] 08/30/21 Office Visit Justen Gale MD [facility] Showing recent visits within past 365 days and meeting all other requirements Future Appointments No visits were found meeting these conditions. Showing future appointments within next 90 days and meeting all other requirements documented in this encounter Plan of Treatment Upcoming Encounters Date Type Department Care Team (Late st Contact Info) Description 03/19/2025 2:00 PM SEO STRATEGIST Office Visit [facility] Endocrinology [facility] #2 [place] [address] Annel Rod MD #[address] [address] 05/29/2025 1:30 PM SEO STRATEGIST Office Visit [facility] Family Medicine [facility] #2 [place] [address] Justen Gale MD #[address] [address] documented as of this encounter Visit Diagnoses Not on filedocumented in this encounter Additional Health Concerns Infection Onset Date Last Indicated Resolved Time COVID - 19 08/01/2024 08/01/2024 08/01/2024 3:20 PM CDT Respiratory Rule-Out 11/18/2024 11/18/2024 025 7:18 AM CDT Assessment Noted Time PHQ-9 Depression Total Score: 0 07/21/19 21 3:00 PM CDT documented as of this encounter Care Teams Pastry Wrapper Relationship Specialty Start Date End Date Justen Gale MD #[address] [address] PCP - General Family Medicine 10/17/17 David Roberts, PHARMACY TECHNOLOGY INSTRUCTOR, HAIRSPRING SETTER #2 [place] [address] Nurse Practitioner Advanced Practice Nurse 01/31/22 Annel Rod MD #[address] [place] [address] Consulting Physician Endocrinology 07/01/22 documented as of this encounter
--- OUTSIDE RECORDS SUMMARY | 2025-02-25 04:12 | XMS_ITS | Encounter Summary ---
Author Organization [facility] Address [address] [place] [address] Phone Care Team Providers Care Triage Clinician Name Role Phone Justen Gale MD Primary Care Provider [phone] David Roberts APRN, PILL PACKER Unavailable [phone] Annel Rod MD Unavailable Reason for Visit * Reason Comments Medication Refill Encounter Details Date Type Department Care Team (Late st Contact Info) Description 02/07/2023 Refill [facility] - Family Medicine [facility] #2 [place] [address] Catrina Quiñ[place] [address] [address] [phone] Medication Refill Social History Tobacco Use Types [...] Catrina Quiñonez MD [facility] [place] 09/16/22 Office Visit Pili Elkins APRN, CNP [facility] [place] 07/05/22 Office Visit Pili Elkins APRN, NETTA [facility] [place] 05/02/22 Office Visit Justen Gale MD [facility] [place] 03/03/22 Office Visit Pili Elkins APRN, NETTA [facility] Showing recent visits within past 365 days and meeting all other requirements Future Appointments No visits were found meeting these conditions. Showing future appointments within next 90 days and meeting all other requirements documented in this encounter Plan of Treatment Upcoming Encounters Date Type Department Care Team (Late st Contact Info) Description 03/19/2025 2:00 PM DELIVERY LEAD Office Visit [facility] - [facility] - [place] [facility] [place] [address] Annel Rod MD #[address] [address] 05/29/2025 1:30 PM DELIVERY LEAD Office Visit [facility] Family Medicine [facility] #2 [place] [address] Justen Gale MD #[address] [address] documented as of this encounter Visit Diagnoses Not on filedocumented in this encounter Additional Health Concerns Infection Onset Date Last Indicated Resolved Time COVID - 19 08/01/2024 08/01/2024 08/01/2024 3:20 PM CDT Respiratory Rule-Out 11/18/2024 11/18/2024 025 7:18 AM CDT Assessment Noted Time PHQ-9 Depression Total Score: 8 01/18/20 23 2:24 PM CDT documented as of this encounter Care Teams Triage Clinician Relationship Specialty Start Date End Date Justen Gale MD [address] [address] PCP - General Family Medicine 10/17/17 David Roberts APRN, PILL PACKER #2 [place] [address] Nurse Practitioner Advanced Practice Nurse 01/31/22 Annel Rod MD #[address] [place] [address] Consulting Physician Endocrinology 07/01/22 documented as of this encounter
--- OUTSIDE RECORDS SUMMARY | 2025-02-25 04:12 | XMS_ITS | Encounter Summary ---
Author Organization [facility] Address [address] [place] [address] Phone Care Team Providers Care Philosophy Faculty Member Name Role Phone Justen Gale MD Primary Care Provider [phone] David Roberts APRN, ETCHER APPRENTICE Unavailable [phone] Annel Rod MD Unavailable Reason for Visit * Reason Comments Medication Refill Encounter Details Date Type Department Care Team (Late st Contact Info) Description 08/07/2023 Refill [facility] - Endocrinology [facility] #2 [place] [address] Annel Rod MD #[address] [address] Medication Refill Social History [...] refilled and signed per [facility] Chronic Medication Refill Standing Order for Pediatric and Adult Patients. documented in this encounter Plan of Treatment Upcoming Encounters Date Type Department Care Team (Late st Contact Info) Description 03/19/2025 2:00 PM CREAM SEPARATOR OPERATOR Office Visit [facility] Medical Group - Endocrinology - [place] #2 [place] [address] Annel Rod MD #[address] [address] 05/29/2025 1:30 PM CREAM SEPARATOR OPERATOR Office Visit [facility] Medical [facility] - Family Medicine [facility] #2 [place] [address] Justen Gale MD #[address] [address] documented as of this encounter Visit Diagnoses Not on filedocumented in this encounter Additional Health Concerns Infection Onset Date Last Indicated Resolved Time COVID - 19 08/01/2024 08/01/2024 08/01/2024 3:20 PM CDT Respiratory Rule-Out 11/18/2024 11/18/2024 025 7:18 AM CDT Assessment Noted Time PHQ-9 Depression Total Score: 8 01/18/20 23 2:24 PM CDT documented as of this encounter Care Teams Philosophy Faculty Member Relationship Specialty Start Date End Date Justen Gale MD #2 [facility] [address] [place] [address] PCP - General Family Medicine 10/17/17 David Roberts APRN, ETCHER APPRENTICE #2 [place] [address] Nurse Practitioner Advanced Practice Nurse 01/31/22 Annel Rod MD #[address] [address] Consulting Physician Endocrinology 07/01/22 documented as of this encounter
--- OUTSIDE RECORDS SUMMARY | 2025-02-25 04:12 | XMS_ITS | Encounter Summary ---
Author Organization [facility] Address [address] [place] [address] Phone Care Team Providers Care Shove Up Name Role Phone Justen Gale MD Primary Care Provider [phone] David Roberts APRN, DRUGLESS PHYSICIAN Unavailable [phone] Annel Rod MD Unavailable Reason for Visit * Reason Comments Medication Refill Encounter Details Date Type Department Care Team (Late st Contact Info) Description 03/05/2023 Refill [facility] - Family Medicine [facility] #2 [place] [address] Pili Elkins APRN, DRUGLESS PHYSICIAN #[address] [address] Medication Refill Social History Tobacco [...] encounter Miscellaneous Notes * Telephone Encounter - aMrlys Anderson RN - 03/06/2023 9:06 AM CST Name from pharmacy: HYDROCHLOROTHIAZIDE 12.5MG CAPSULES Will file in chart as: hydroCHLOROthiazide (MICROZIDE) 12.5 MG Capsule The original prescription was discontinued on 10/19/2022 by Justen Gale MD CONTROLLER documented in this encounter Plan of Treatment Upcoming Encounters Date Type Department Care Team (Late st Contact Info) Description 03/19/2025 2:00 PM MRP CONTROLLER Office Visit [facility] Medical Group - Endocrinology - [place] #2 [place] [address] Annel Rod MD #2 [facility] [address] [place] [address] 05/29/2025 1:30 PM MRP CONTROLLER Office Visit [facility] Medical Group - Family Medicine - [place] #2 [place] [address] Justen Gale MD #2 [facility] [address] [place] [address] documented as of this encounter Visit Diagnoses [...] documented as of this encounter Care Teams Shove Up Relationship Specialty Start Date End Date Justen Gale MD #2 [facility] [address] [place] [address] PCP - General Family Medicine 10/17/17 David Roberts APRN, DRUGLESS PHYSICIAN #2 [place] [address] Nurse Practitioner Advanced Practice Nurse 01/31/22 Annel Rod MD #[address] [address] Consulting Physician Endocrinology 07/01/22 documented as of this encounter
--- OUTSIDE RECORDS SUMMARY | 2025-02-25 04:12 | XMS_ITS | Encounter Summary ---
Author Organization [facility] Address [address] [place] [address] Phone Care Team Providers Care Mash Tub Cooker Operator Name Role Phone Justen Gale MD Primary Care Provider [phone] David Roberts APRN, LEAD WEB DEVELOPER Unavailable [phone] Annel Rod MD Unavailable Reason for Visit * Reason Onset Date Comments Pain 09/23/2024 Encounter Details Date Type Department Care Team (Late st Contact Info) Description 09/23/2024 Telephone [facility] [address] [place] [phone] Justen Gale MD #[address] [address] Pain Social History Tobacco Use Types Packs/Day Years Used Date Smoking Tobacco: Never Smokeless Tobacco: Never Alcohol Use Standard Drinks/Week Comments No 0 (1 standard drink = 0.6 oz pur e alcohol) [facility] Utilities Answer Date Recorded In [...] often do you attend chur ch or sikhism services? More than 4 times per year [...] Total Score - Questions 1-9 0 07/23 [facility] - Occupational [...] - patient has RA Outcome: Transfer to glass processing worker queue Reason: Caller denied all higher acuity questions The caller accepted this outcome. Caller Denied: * Chest pain * Headache * Eye pain * Abdominal pain * Genital pain documented in this encounter Plan of Treatment Upcoming Encounters Date Type Department Care Team (Late st Contact Info) Description 03/19/2025 2:00 PM CIRCUIT DESIGN ENGINEER [facility] - Endocrinology - [place] #2 [place] [address] Annel Rod MD #2 [facility] [address] [place] [address] 05/29/2025 1:30 PM CIRCUIT DESIGN ENGINEER [facility] - Family Medicine - [place] #2 [place] [address] Justen Gale MD #2 [facility] [address] [place] [address] documented as of this encounter Visit Diagnoses Not on filedocumented in this encounter Additional Health Concerns Infection Onset Date Last Indicated Resolved Time Respiratory Rule-Out 11/18/2024 11/18/2024 025 7:18 AM CDT Assessment Noted Time PHQ-9 Depression Total Score: 0 08/02/19 25 1:09 PM CDT documented as of this encounter Care Teams Mash Tub Cooker Operator Relationship Specialty Start Date End Date Justen Gale MD #2 [facility] [address] [place] [address] PCP - General Family Medicine 10/17/17 David Roberts APRN, NETTA #[address] [place] [address] Nurse Practitioner Advanced Practice Nurse 01/31/22 Annel Rod MD #2 [facility] [address] [place] [address] Consulting Physician Endocrinology 07/01/22 documented as of this encounter
--- OUTSIDE RECORDS SUMMARY | 2025-02-25 04:12 | XMS_ITS | Encounter Summary ---
Author Organization [facility] Address [address] [place] [address] Phone Care Team Providers Care Roller Painter Name Role Phone Justen Gale MD Primary Care Provider David Roberts APRN, ARCHITECTURE FACULTY MEMBER Unavailable [phone] Annel Rod MD Unavailable Reason for Visit * Reason Comments Medication Refill Encounter Details Date Type Department Care Team (Late st Contact Info) Description 07/06/2023 Refill [facility] - Family Medicine [facility] #2 [place] [phone] Justen Gale MD #[address] [address] Medication Refill Social History Tobacco Use Types [...] AM CDT Medication(s) refilled and signed per [facility] Chronic Medication Refill Standing Order for [...] MD [facility] [place] 01/17/23 Office Visit Catrina Quiñonez MD [facility] [place] Showing recent visits within past 270 [...] st Contact Info) Description 03/19/2025 2:00 PM PACK WORKER Office Visit [facility] Medical [facility] - Endocrinology - [place] [address] [place] [address] Annel Rod MD #[address] [address] 05/29/2025 1:30 PM PACK WORKER Office Visit [facility] - Family [facility] [address] [place] [address] Justen Gale MD #2 [address] [facility] [address] [place] [address] documented as of this encounter Visit Diagnoses Not on filedocumented in this encounter Additional Health Concerns Infection Onset Date Last Indicated Resolved Time COVID - 19 08/01/2024 08/01/2024 08/01/2024 3:20 PM CDT Respiratory Rule-Out 11/18/2024 11/18/2024 025 7:18 AM CDT Assessment Noted Time PHQ-9 Depression Total Score: 8 01/18/20 23 2:24 PM CDT documented as of this encounter Care Teams Roller Painter Relationship Specialty Start Date End Date Justen Gale MD [address] [address] PCP - General Family Medicine 10/17/17 David Roberts, MARKETING DATA SPECIALIST, ARCHITECTURE FACULTY MEMBER [address] [place] [address] Nurse Practitioner Advanced Practice Nurse 01/31/22 Annel Rod MD [address] [address] Consulting Physician Endocrinology 07/01/22 documented as of this encounter
--- OUTSIDE RECORDS SUMMARY | 2025-02-25 04:12 | XMS_ITS | Encounter Summary ---
Author Organization [facility] Address [address] [place] [address] Phone Care Team Providers Care Mine Captain Name Role Phone Lavonne Hathaway MD Primary Care Provider + [phone] Liu Jerez MD Unavailable [phone] Albert Corbin MD Unavailable [phone] Justen Gale MD Primary Care Provider + [phone] Lavonne Hathaway MD Primary Care Provider + [phone] Justen Gale MD Primary Care Provider + [phone] Khris Arthur MD Unavailable + [phone] Ko Melendez MD Unavailable [phone] John Paul Moyer MD Unavailable Annel Rod MD Unavailable Anali MARSHALL MD, Carlos M. Unavailable [phone] Encounter Details Date Type Department Care Team ([facility] Contact Info) Description 05/15/2017 Orders Only [facility] Scanning, Provider Social History Tobacco Use Types Packs/Day Years Used Date Smoking Tobacco: Former Alcohol Use Standard Drinks/Week Comments No 0 (1 standard drink = 0.6 oz pur e alcohol) Comments Unknown Sex and Gender Information Value Date Recorded Sex Assigned at Not on file Legal Sex Female 12:24 AM CAMPUS RECEPTIONIST Gender Identity Not on file Sexual Orientation [...] COVID: Recovered 02/10/2022 02/10/2022 06/10/2022 3:05 AM CAMPUS RECEPTIONIST Exposure, COVID-19 Comment:Added automatically based on COVID19 lab answers indicating exposure risk 02/11/2022 02/11/2022 02/15/2022 9:06 AM C DT COVID: Suspected 05/14/2022 05/14/2022 05/14/2022 10:41 AM CAMPUS RECEPTIONIST COVID: Suspected 06/07/2022 06/07/2022 06/07/2022 12:28 PM CAMPUS RECEPTIONIST COVID: Suspected 06/21/2022 06/21/2022 06/21/2022 2:12 AM CAMPUS RECEPTIONIST COVID: Suspected 10/05/2022 10/05/2022 10/05/2022 7:40 PM CDT COVID: Suspected 01/04/2024 01/04/2024 01/04/2024 10:30 PM CDT COVID: Suspected 02/14/2024 02/14/2024 02/15/2024 12:36 AM CDT COVID: Suspected 07/01/2024 07/01/2024 07/01/2024 2:53 PM CDT COVID: Suspected 07/01/2024 07/01/2024 07/02/2024 3:05 AM CDT COVID: Suspected 12/08/2024 12/08/2024 12/08/2024 1:50 AM CDT documented as of this encounter Care Teams Mine Captain Relationship Specialty Start Date End Date Lavonne Hathaway MD [address] [place] [address] [place] [address] PCP - General 08/16/16 08/17/17 Justen Gale MD [address] [facility] [place] [address] [place] [address] PCP - General 08/18/17 08/22/17 Lavonne Hathaway MD [address] [place] [address] [place] [address] PCP - General Family Medicine 08/23/17 10/08/17 Justen Gale MD [address] [place] [address] [place] [address] PCP - General 10/09/17 Liu Jerez MD [address] [place] [address] [place] [address] Consulting Physician Gastroenterology 07/28/17 [place] [address] [address] [facility] [address] [place] [address] Consulting Physician Pulmonary Disease 08/03/17 Khris Arthur MD [address] [facility] [address] [place] [address] Medical Oncologist/Clay Grinder Medical Oncology 10/23/17 [place] [address] [address] [facility] [address] [place] [address] Surgeon Orthopedic Surgery 10/23/17 [place] [address] [address] [facility] [address] [place] [address] Consulting Physician Pain Management 10/23/17 [place] [address] [address] [facility] [address] [place] [address] Referring Physician General Surgery 01/26/18 [place] [address] [facility] [address] [place] [address] Consulting Physician Neurology 01/26/18 documented as of this encounter
--- OUTSIDE RECORDS SUMMARY | 2025-02-25 04:12 | XMS_ITS | Encounter Summary ---
Author Organization [facility] Address [address] [place] [address] Phone Care Team Providers Care Railroad Supervisor Of Engines Name Role Phone Justen Gale MD Primary Care Provider [phone] David Roberts APRN, NAIL PROFESSIONAL Unavailable [phone] Annel Rod MD Unavailable Reason for Visit * Reason Comments Medication Refill Encounter Details Date Type Department Care Team (Late st Contact Info) Description 07/14/2022 Refill [facility] - Family Medicine [facility] #[address] [place] [phone] Justen Gale MD #[address] [address] Medication Refill Social History Tobacco Use Types [...] st Contact Info) Description 03/19/2025 2:00 PM ROLL PICKER Office Visit [facility] Medical Group - Endocrinology [facility] #2 [place] [address] Annel Rod MD #[address] [address] 05/29/2025 1:30 PM ROLL PICKER Office Visit [facility] - Family Medicine [facility] [address] [place] [address] Justen Gale MD #[address] [address] documented as of this encounter Visit Diagnoses Not on filedocumented in this encounter Additional Health Concerns Infection Onset Date Last Indicated Resolved Time COVID - 19 08/01/2024 08/01/2024 08/01/2024 3:20 PM CDT Respiratory Rule-Out 11/18/2024 11/18/2024 025 7:18 AM CDT Assessment Noted Time PHQ-9 Depression Total Score: 0 07/21/19 21 3:00 PM CDT documented as of this encounter Care Teams Railroad Supervisor Of Engines Relationship Specialty Start Date End Date Justen Gale MD #2 [facility] [address] [place] [address] PCP - General Family Medicine 10/17/17 David Roberts APRN, NAIL PROFESSIONAL #2 [place] [address] Nurse Practitioner Advanced Practice Nurse 01/31/22 Annel Rod MD #2 [facility] [address] [place] [address] Consulting Physician Endocrinology 07/01/22 documented as of this encounter
--- OUTSIDE RECORDS SUMMARY | 2025-02-25 04:12 | XMS_ITS | Encounter Summary ---
Author Organization [facility] Address [address] [place] [address] Phone Care Team Providers Care Application Design Engineer Name Role Phone Justen Gale MD Primary Care Provider [phone] David Roberts APRN, BRAIDED BAND ASSEMBLER Unavailable [phone] Annel Rod MD Unavailable Reason for Visit * Reason Comments Medication Refill Encounter Details Date Type Department Care Team (Late st Contact Info) Description 08/30/2022 Refill [facility] - Family Medicine [facility] #2 [place] [phone] Justen Gale MD #[address] [address] Medication Refill Social History Tobacco Use Types [...] [place] 05/02/22 Office Visit Justen Gale MD [facility] 03/03/22 Office Visit Pili Elkins APRN, NETTA [facility] [place] 01/03/22 Office Visit Dannielle Berg PAC [facility] [place] 12/07/21 Office Visit Pili Elkins APRN, NETTA [facility] [place] 11/09/21 Office Visit Pili Elkins APRN, NETTA [facility] [place] 10/08/21 Office Visit Angelito Alegria APRN, BRAIDED BAND ASSEMBLER [facility] [place] 08/30/21 Office Visit Justen Gale MD [facility] Showing recent visits within past 365 days and meeting all other requirements Future Appointments No visits were found meeting these conditions. Showing future appointments within next 90 days and meeting all other requirements documented in this encounter Plan of Treatment Upcoming Encounters Date Type Department Care Team (Late st Contact Info) Description 03/19/2025 2:00 PM U.S. SENATOR Office Visit [facility] - Endocrinology [facility] [address] [facility] [address] Annel Rod MD [address] [address] 05/29/2025 1:30 PM U.S. SENATOR Office Visit [facility] Family Medicine [facility] [address] [place] [address] Justen Gale MD #[address] [address] documented as of this encounter Visit Diagnoses Not on filedocumented in this encounter Additional Health Concerns Infection Onset Date Last Indicated Resolved Time COVID - 19 08/01/2024 08/01/2024 08/01/2024 3:20 PM CDT Respiratory Rule-Out 11/18/2024 11/18/2024 025 7:18 AM CDT Assessment Noted Time PHQ-9 Depression Total Score: 0 07/21/19 21 3:00 PM CDT documented as of this encounter Care Teams Application Design Engineer Relationship Specialty Start Date End Date Justen Gale MD [address] [address] PCP - General Family Medicine 10/17/17 David Roberts APRN, BRAIDED BAND ASSEMBLER #[address] [place] [address] Nurse Practitioner Advanced Practice Nurse 01/31/22 Annel Rod MD #[address] [place] [address] Consulting Physician Endocrinology 07/01/22 documented as of this encounter
--- OUTSIDE RECORDS SUMMARY | 2025-02-25 04:12 | XMS_ITS | Encounter Summary ---
Author Organization [facility] Address [address] [place] [address] Phone Care Team Providers Care Fueler Name Role Phone Justen Gale MD Primary Care Provider [phone] Daivd Roberts APRN, FASHION STYLING INTERN Unavailable [phone] Annel Rod MD Unavailable Reason for Visit * Reason Comments Medication Refill Encounter Details Date Type Department Care Team (Late st Contact Info) Description 04/13/2023 Refill [facility] - Endocrinology [facility] #[address] [place] [address] Annel Rod MD #[address] [address] Medication Refill Social History Tobacco [...] Jennifer Wang, RN - 04/14/2023 10:00 AM FLIGHT SURGEON Requested Prescriptions Pending Prescriptions Disp Refills ??? Continuous Blood Gluc Sensor (FreeStyle Eileen 2 Sensor) Misc [Pharmacy Med Name: FREESTYLE EILEEN 2 SENSOR] 6 Each 1 Sig: APPLY 1 SENSOR AND WEAR FOR 14 DAYS TO CHECK BLOOD SUGAR Next appt: 05/30/2023 HT SURGEON documented in this encounter Plan of Treatment Upcoming Encounters Date Type Department Care Team (Late st Contact Info) Description 03/19/2025 2:00 PM FLIGHT SURGEON Office Visit [facility] Medical Group - Endocrinology [facility] #[address] [place] [address] Annel Rod MD #2 [facility] [address] [place] [address] 05/29/2025 1:30 PM FLIGHT SURGEON Office Visit [facility] - Family Medicine [facility] #2 [place] [address] Justen Gale MD #2 [facility] [address] [place] [address] documented as of this encounter Visit Diagnoses Not on filedocumented in this encounter Additional Health Concerns Infection Onset Date Last Indicated Resolved Time COVID - 19 08/01/2024 08/01/2024 08/01/2024 3:20 PM CDT Respiratory Rule-Out 11/18/2024 11/18/2024 025 7:18 AM CDT Assessment Noted Time PHQ-9 Depression Total Score: 8 01/18/20 23 2:24 PM CDT documented as of this encounter Care Teams Fueler Relationship Specialty Start Date End Date Justen Gale MD #2 [facility] [address] [place] [address] PCP - General Family Medicine 10/17/17 David Roberts APRN, FASHION STYLING INTERN #2 [place] [address] Nurse Practitioner Advanced Practice Nurse 01/31/22 Annel Rod MD #2 [facility] [address] [place] [address] Consulting Physician Endocrinology 07/01/22 documented as of this encounter
--- OUTSIDE RECORDS SUMMARY | 2025-02-25 04:12 | XMS_ITS | Encounter Summary ---
Author Organization [facility] Address [address] [place] [address] Phone Care Team Providers Care Community Mental Health Worker Name Role Phone Justen Gale MD Primary Care Provider [phone] David Roberts APRN, PRECIPITATOR Unavailable [phone] Annel Rod MD Unavailable Reason for Visit * Reason Onset Date Comments Advice Only 08/19/2024 Follow-up 08/19/2024 Encounter Details Date Type Department Care Team (Late st Contact Info) Description 08/19/2024 Telephone [facility] [place] [address] Justen Gale MD #[address] [address] Advice Only; Follow-up Social History Tobacco Use Types Packs/Day Years Used Date Smoking Tobacco: Never Smokeless Tobacco: Never Alcohol Use Standard Drinks/Week Comments No 0 (1 standard drink = 0.6 oz pur e alcohol) [facility] Utilities Answer Date Recorded In the past 12 months has [employer] electric, gas, oil, or water company threatened [...] you attend chur or oriental orthodox services? More than 4 [...] 0 07/23 [facility] - Occupational [...] visit * Telephone Encounter - Angelito Alegria, SOFTWARE APPLICATIONS DEVELOPER, PRECIPITATOR - 08/19/2024 9:04 AM CDT Forwarding * Telephone Encounter - Isaura Weiss RN - 08/19/2024 8:37 AM CDT Situation: Strep throat follow up Background: Patient contacting PCP office. Patient was seen in ED on 08/09 and 08/12 in [place] (records in chart). Diagnosed with strep. Assessment: [...] CDT Symptom: Sore Throat Outcome: Transfer to tnt powder worker queue Reason: Caller denied all higher acuity questions The caller accepted this outcome. Caller Denied: * Struggling for each breath (severe trouble breathing) * Can't swallow saliva (drooling) documented in this encounter Plan of Treatment Upcoming Encounters Date Type Department Care Team (Late st Contact Info) Description 03/19/2025 2:00 PM FISH CAKE MAKER Office Visit [facility] - Endocrinology - [place] #[address] [place] [address] Annel Rod MD #[address] [address] 05/29/2025 1:30 PM FISH CAKE MAKER Office Visit [facility] - Family [facility] #[address] [place] [address] Justen Gale MD #2 [place] [facility] [address] [place] [address] documented as of this encounter Visit Diagnoses Not on filedocumented in this encounter Additional Health Concerns Infection Onset Date Last Indicated Resolved Time Respiratory Rule-Out 11/18/2024 11/18/2024 025 7:18 AM CDT Assessment Noted Time PHQ-9 Depression Total Score: 0 08/02/19 25 1:09 PM CDT documented as of this encounter Care Teams Community Mental Health Worker Relationship Specialty Start Date End Date Justen Gale MD #[address] [address] PCP - General Family Medicine 10/17/17 David Roberts, SOFTWARE APPLICATIONS DEVELOPER, PRECIPITATOR #2 [place] [address] Nurse Practitioner Advanced Practice Nurse 01/31/22 Annel Rod MD #[address] [address] Consulting Physician Endocrinology 07/01/22 documented as of this encounter
--- OUTSIDE RECORDS SUMMARY | 2025-02-25 04:12 | XMS_ITS ---
Author Organization [facility] Address [address] [facility] [place] [address] Care Team Providers Care Aircraft Design Engineer Name Role Phone Justen Gale MD Primary Care Provider [phone] Active Problems Problem Noted Date Diagnosed Date [...]
--- OUTSIDE RECORDS SUMMARY | 2025-02-25 04:12 | XMS_ITS | Clinical Summary ---
Author Organization [facility] [employer] Address [address] [facility] [place] [address] Care Team Providers Care Hand Chain Maker Name Role Phone Justen Gale MD Primary Care Provider [phone] Source Comments [facility],non-[facility] behavioral health services Affiliates and Associated Physician Practices is amultiple site organization consisting of ambulatory clinics and hospital sitesin [place], [place], [place] and [place]. This disclosure is being madepursuant to the Care Everywhere program and may not contain all information available regarding this patient. Last updated 18.[facility] [employer] Allergies Active Allergy Reactions Criticality Noted Date [...] Eileen 2 Sensor Systm) [facility] APPLY 1 SENSOR [...] by mouth once daily Active HYDROcodone-a cetaminophen ([place]) 10-325 MG tabletIndicat ions:Nephroli thiasis Take 1 [...] daily 30 tablet 2024 Discontinued HYDROcodone-a cetaminophen ([place]) 10-325 MG tablet Take 1 (one) tablet [...] 02/11/2025 8:15 AM CDT Home Care Visit [facility] Health at Home Home Health [address] [place] [address] Vince Youngblood, [address] [place] [address] Antoinette Webber, RN HOME CONNECTIONS TELEPHONE VISIT 02/10/2025 5:41 PM CDT - 02/14/2025 4:15 PM CDT Hospital Encounter HC 2 ORTHO/NEW VIS [address] [place] [address] Maykel Lacey, Jaylen Carlin MD Hambolu, Kehinde, MD Hospitalist Discharge Disposition: Home or Self Care 02/10/2025 Travel 02/08/2025 1:00 AM CDT Home Care Visit [facility] Health at Home Home Health [facility] [address], [address] [place] [address] Antoinette Webber, RN HOME CONNECTIONS TELEPHONE VISIT 02/07/2025 Home Care Visit [facility] Health at Home Home Health [facility] Vince Youngblood, [facility] [address] [place] [address] Antoinette Webber, RN TELEPHONE ENCOUNTER 02/06/2025 8:30 AM CDT Home Care Visit [facility] Health at Home Home Health [facility] Vince Youngblood, Ethan [address] [place] [phone] Antoinette Webber, RN TELEPHONE ENCOUNTER 02/04/2025 7:30 AM CDT Home Care Visit [facility] Health at Home Home Health [facility] [address], [facility] [address] [place] [phone] Darvin Parekh MD Reiser, Dolores P, RN HOME CONNECTIONS TELEPHONE ADMIT 01/30/2025 1:13 AM CDT - 02/02/2025 2:28 PM CDT Hospital Encounter [facility] [address] [place] [address] Patsy Hill MD Usman, Ahsan, MD Seleznev, Ilya, MD Hospitalist Discharge Disposition: Home or Self Care 01/30/2025 Travel 01/08/2025 Telephone [facility] [address] [place] [address] [address] [place] [address] Xavier Coronado MD Scheduling 01/02/2025 12:03 PM CDT - 01/06/2025 6:32 PM CDT Hospital Encounter [facility] 4W TELE [address] [place] [address] Yasmin Matthew DO Brown, Micahla C, MD [...] in a halfway (including now)? No 05/16/2023 Housing Stability Vital [...] or living in a halfway (including now)? Patient declined 01/03/2025 AUDIT-C Answer [...] and heating? Not hard at all 02/01/2025 [facility] [place] [facility] - Occupational Stress [...] living in a halfway (including now)? No 02/01/2025 Comments No Sex and Gender Information Value Date Recorded Sex Assigned at Not on file Legal Sex Female 6:53 PM HEARING SPECIALIST Gender Identity Not on file Sexual [...] st Contact Info) Description 02/25/2025 8:30 AM HEARING SPECIALIST Appointment [facility] at Home Home Health [address] [facility] , [address] [place] [address] Antoinette Webber, RN 02/25/2025 1:50 PM HEARING SPECIALIST Office Visit [facility] [address] [facility] [address] [place] [address] Xavier Coronado MD [address] [facility] [address] [place] [address] 03/04/2025 8:15 AM HEARING SPECIALIST Appointment [facility] Health at Home Home Health [address] [facility] , [facility] [address] [place] [address] Antoinette Webber, RN Health Maintenance [...] this topic Medical Devices Implanted Type Area Employment Services Director Device Identifier Shelf Expiration Date Model / Serial / Lot Lead Nrstm 60cm Penta 3mm Pdl 16 Chnl Implanted:Qt y: 1 on 09/16/2021 by Maxi Gregg MD at [facility] Right: Spine Thoracic [employer] [id number] / / Description:CAMILO Slnt Dura Duraseal Pg Trilysine Amine 5 Implanted:Qt y: 1 on 09/16/2021 by Maxi Gregg MD at [facility] Right: Spine Thoracic [employer] David [id number] / / Description:CAMILO Proclaim Plus 5 Implanted:Qt y: 1 on 02/16/2023 by Maxi Gregg MD at [facility] Left: Back Carden[employer] Spine [id number] 11/07/2024 [id number] / [id number] / Explanted Type Area Employment Services Director Device Identifier Shelf Expiration Date Model / Serial / Lot Gntr Nrstm [id number] Proclaim Elt Implanted:Qty: 1 on 09/16/2021 by Maxi Gregg MD at [facility] Explanted:Qty: 1 on 10/30/2021 by Maxi Gregg MD at [facility] Right: Spine Thoracic [employer] [...] - 99 mg/dL 02/14/2025 12:35 PM CDT [facility] Specimen Type Arterial/C apillary 02/14/2025 12:35 PM CDT [facility] Blood BLOOD SPECIMEN / Unknown 02/14/2025 12:26 PM CDT 02/14/2025 12:35 PM CDT us Mike Bhandari MD LAB - POINT OF CARE ORDERABLE S Final Result [facility] [address] [place], [place] [id number] * (ABNORMAL) BASIC METABOLIC PANEL (CALCIUM TOTAL) (02/14/2025 4:16 AM CDT) Only the most recent of10 resultswithin the time period is included. Glucose 136(H) 70 - 99 mg/dL 02/14/2025 5:57 AM CDT [facility] Sodium 138 136 - 145 mmol/L 02/14/2025 5:57 AM CDT [facility] Potassium 3.8 3.5 - 5.1 mmol/L 02/14/2025 5:57 AM CDT [facility] Chloride 100 98 - 107 mmol/L 02/14/2025 5:57 AM CDT [facility] CO2 27 22 - 29 mmol/L 02/14/2025 5:57 AM CDT [facility] Calcium 9.0 8.4 - 10.4 mg/dL 02/14/2025 5:57 AM CDT [facility] Anion Gap 11 6 - 16 mmol/L 02/14/2025 5:57 AM CDT [facility] BUN 27(H) 7 - 26 mg/dL 02/14/2025 5:57 AM CDT [facility] Creatinine 0.84 0.50 - 1.20 mg/dL 02/14/2025 5:57 AM CDT [facility] eGFR by CKD-EPI 76(L) >=90 mL/min/1.7 3 m2 02/14/2025 5:57 AM CDT [facility] Comment:Estimated Glomerular Filtration Rate (eGFR) calculated using the CKD-EPI Creatinine Equation (2020), per the National Kidney Foundation and [place] [employer] of Nephrology recommendations. Blood BLOOD SPECIMEN / Unknown Lab Venipuncture / Unknown 02/14/2025 4:16 AM CDT 02/14/2025 5:20 AM CDT Mike Bhandari MD LAB - CHEMISTRY ORDERABLES Fi nal Result [facility] [address] [place] [address] * MAGNESIUM BLOOD (02/14/2025 4:16 AM CDT) Only the most recent of9 resultswithin the time period is included. Magnesium 1.9 1.6 - 2.6 mg/dL 02/14/2025 5:57 AM CDT [facility] Blood BLOOD SPECIMEN / Unknown Lab Venipuncture / Unknown 02/14/2025 4:16 AM CDT 02/14/2025 5:20 AM CDT Mike Bhandari MD LAB - CHEMISTRY ORDERABLES Fi nal Result [facility] [address] [place] [address] * CT Abdomen Pelvis Wo Contrast (02/13/2025 [...] column stimulator is incompletely included in the [id number]. Procedure Note Fabiola Alegre MD - 02/13/2025 [...] column stimulator is incompletely included in the [id number]. IMPRESSION: 1. No evidence of acute process. [...] UA Negative Negative 02/13/2025 1:35 PM CDT [facility] Ketone UA Negative Negative 02/13/2025 1:35 PM CDT [facility] Specific [place] UA 1.016 1.005 - 1.030 02/13/2025 1:35 PM CDT [facility] Blood UA Negative Negative 02/13/2025 1:35 PM CDT [facility] pH UA 5.0 5.0 - 8.0 02/13/2025 1:35 PM CDT [facility] Protein UA Negative Negative 02/13/2025 1:35 PM CDT [facility] Urobilinogen UA Normal Normal mg/dL 02/13/2025 1:35 PM CDT [facility] Nitrite UA Positive(A) Negative 02/13/2025 1:35 PM CDT [facility] Leukocyte Esterase UA 500 PAO/uL(A) Negative 02/13/2025 1:35 PM CDT [facility] RBC UA 0-2 0 - 5 # /hpf 02/13/2025 1:35 PM CDT [facility] WBC UA 21-50(A) 0 - 5 # /hpf 02/13/2025 1:35 PM CDT [facility] Bacteria UA 1+(A) None Seen 02/13/2025 1:35 PM CDT [facility] Squamous Epithelial Cells None Seen 0 - 5 /hpf 02/13/2025 1:35 PM CDT [facility] Mucus UA 3+ /LPF 02/13/2025 1:35 PM CDT [facility] Hyaline Casts 3-5(A) 0 - 2 /LPF 02/13/2025 1:35 PM CDT [facility] Reflex Status Culture to follow 02/13/2025 1:35 PM CDT [facility] Urine URINE SPECIMEN OBTAINED BY CLEAN CATCH PROCEDURE / Unknown Collection / Unknown 02/13/2025 1:09 PM CDT 02/13/2025 1:27 PM CDT us Mike Bhandari MD LAB - URINALYSIS ORDERABLES F inal Result [facility] [address] [place] [address] * (ABNORMAL) CULTURE URINE (02/13/2025 1:09 PM CDT) Culture Urine 50,000-100,000 CFU/mL Escherichia coli(A) TERRANCE 02/14/2025 10:00 PM CDT [facility] Urine URINE SPECIMEN OBTAINED BY [...] MD LAB - MICROBIOLOGY ORDERABLES Final Result [facility] [address] [place] [address], [facility] [phone] * CARDIAC EKG ORDER (02/11/2025 8:41 PM [...] - 10.7 x10E9/L 02/11/2025 3:48 AM CDT [facility] RBC Count 4.22 3.90 - 5.20 x10E12/L 02/11/2025 3:48 AM CDT [facility] Hemoglobin 11.9 11.9 - 15.8 g/dL 02/11/2025 3:48 AM CDT [facility] Hematocrit 37.9 34.8 - 46.1 % 02/11/2025 3:48 AM CDT [facility] MCV 89.8 80.0 - 98.0 fL 02/11/2025 3:48 AM CDT [facility] MCH 28.2 26.7 - 33.6 pg 02/11/2025 3:48 AM CDT [facility] MCHC 31.4(L) 31.7 - 36.3 g/dL 02/11/2025 3:48 AM CDT [facility] RDW-CV 14.2 11.3 - 14.8 % 02/11/2025 3:48 AM CDT [facility] Platelet Count 269 150 - 420 x10E9/L 02/11/2025 3:48 AM CDT [facility] MPV 9.8 7.8 - 11.4 fL 02/11/2025 3:48 AM CDT [facility] Blood BLOOD SPECIMEN / Unknown Lab Venipuncture / Unknown 02/11/2025 3:02 AM CDT 02/11/2025 3:40 AM CDT us Jaylen Tran MD LAB - HEMATOLOGY ORDERABLES Deann colby Result [facility] [address] [place] [address] * (ABNORMAL) COMPREHENSIVE METABOLIC PANEL (02/11/2025 3:02 AM CDT) Only the most recent of4 resultswithin the time period is included. [facility] Glucose 229(H) 70 - 99 mg/dL 02/11/2025 4:04 AM CDT [facility] Sodium 138 136 - 145 mmol/L 02/11/2025 4:04 AM CDT [facility] Potassium 3.8 3.5 - 5.1 mmol/L 02/11/2025 4:04 AM CDT [facility] Chloride 101 98 - 107 mmol/L 02/11/2025 4:04 AM CDT [facility] CO2 27 22 - 29 mmol/L 02/11/2025 4:04 AM CDT [facility] Calcium 9.2 8.4 - 10.4 mg/dL 02/11/2025 4:04 AM CDT [facility] Anion Gap 10 6 - 16 mmol/L 02/11/2025 4:04 AM CDT [facility] BUN 22 7 - 26 mg/dL 02/11/2025 4:04 AM CDT [facility] Creatinine 0.72 0.50 - 1.20 mg/dL 02/11/2025 4:04 AM CDT [facility] Alkaline Phosphatase 61 40 - 150 U/L 02/11/2025 4:04 AM CDT [facility] ALT 31 6 - 57 U/L 02/11/2025 4:04 AM CDT [facility] AST 16 10 - 48 U/L 02/11/2025 4:04 AM CDT [facility] Protein Total 6.6 6.4 - 8.3 gm/dL 02/11/2025 4:04 AM CDT [facility] Albumin 3.2 3.1 - 4.5 gm/dL 02/11/2025 4:04 AM CDT [facility] Bilirubin Total 0.5 0.2 - 1.2 mg/dL 02/11/2025 4:04 AM CDT [facility] eGFR by CKD-EPI >90 >=90 mL/min/1.7 3 m2 02/11/2025 4:04 AM CDT [facility] Comment:Estimated Glomerular Filtration Rate (eGFR) calculated using the CKD-EPI Creatinine Equation (2020), per the National Kidney Foundation and [place] [employer] of Nephrology recommendations. Blood BLOOD SPECIMEN / Unknown Lab Venipuncture / Unknown 02/11/2025 3:02 AM CDT 02/11/2025 3:40 AM CDT Jaylen Tran MD LAB - CHEMISTRY ORDERABLES Final Result Performing Organization Address City/[facility] Co de Phone Number [facility] [address] [place] [address] * TROPONIN-I HIGH SENSITIVE REFLEX 1HOUR (02/10/2025 4:10 PM CDT) Only the most recent of3 resultswithin the time period is included. Troponin I High Sensitive 6 <=14 ng/L 02/10/2025 5:01 PM CDT [facility] Delta Troponin I HS 02/10/2025 5:01 PM CDT [facility] Comment:Delta value intentio yissel not calculated. Baseline to 1 hour specimen collection interval exceeded. Blood BLOOD SPECIMEN / Unknown Venipuncture / Unknown 02/10/2025 4:10 PM CDT 02/10/2025 4:30 PM CDT us Josué Bernal PA-C LAB - CHEMISTRY ORDERABLE S Final Result [facility] [address] [place] [phone] * XR CHEST 2VW (02/10/2025 3:58 PM [...] 168.7 <900.0 pg/mL 02/10/2025 4:04 PM CDT [facility] Blood BLOOD SPECIMEN / Unknown Venipuncture / Unknown 02/10/2025 3:36 PM CDT 02/10/2025 3:42 PM CDT Narrative [facility] - 02/10/2025 4:04 PM CDT NT-pro-BNP [...] other findings. NT-pro-BNP is measured on the [employer] analyzer using chemiluminescent microparticle immunoassay (CMIA) technology. Josué MCKEON-C LAB - CHEMISTRY ORDERABLE S Final Result Performing Organization Address City/[facility]/ZIP Co de Phone Number [facility] [address] [place], [place] [id number] * TROPONIN-I HIGH SENSITIVE BASELINE + 1HR (02/10/2025 3:36 PM CDT) Only the most recent of3 resultswithin the time period is included. [facility] Troponin I High Sensitive 7 <=14 ng/L 02/10/2025 4:03 PM CDT [facility] Blood BLOOD SPECIMEN / Unknown Venipuncture / Unknown 02/10/2025 3:36 PM CDT 02/10/2025 3:42 PM CDT Josué MCKEON-C LAB - CHEMISTRY ORDERABLE S Final Result Performing Organization Address [facility] Co de Phone Number [facility] [address] [place] [phone] * (ABNORMAL) CBC W AUTO DIFFERENTIAL (02/10/2025 3:36 PM CDT) Only the most recent of3 resultswithin the time period is included. [facility] WBC 12.5(H) 4.0 - 10.7 x10E9/L 02/10/2025 3:45 PM CDT [facility] RBC Count 4.32 3.90 - 5.20 x10E12/L 02/10/2025 3:45 PM CDT [facility] Hemoglobin 12.2 11.9 - 15.8 g/dL 02/10/2025 3:45 PM CDT [facility] Hematocrit 38.9 34.8 - 46.1 % 02/10/2025 3:45 PM CDT [facility] MCV 90.0 80.0 - 98.0 fL 02/10/2025 3:45 PM CDT [facility] MCH 28.2 26.7 - 33.6 pg 02/10/2025 3:45 PM CDT [facility] MCHC 31.4(L) 31.7 - 36.3 g/dL 02/10/2025 3:45 PM CDT [facility] RDW-CV 14.4 11.3 - 14.8 % 02/10/2025 3:45 PM CDT [facility] Platelet Count 255 150 - 420 x10E9/L 02/10/2025 3:45 PM CDT [facility] MPV 9.5 7.8 - 11.4 fL 02/10/2025 3:45 PM CDT [facility] Neutrophil % 82.6(H) 41.0 - 74.0 % 02/10/2025 3:45 PM CDT [facility] Lymphocyte % 9.7(L) 17.0 - 47.0 % 02/10/2025 3:45 PM CDT [facility] Monocyte % 5.6 3.0 - 11.0 % 02/10/2025 3:45 PM CDT [facility] Eosinophil % 1.1 0.0 - 7.0 % 02/10/2025 3:45 PM CDT [facility] Basophil % 0.2 0.0 - 1.6 % 02/10/2025 3:45 PM CDT [facility] Immature Granulocytes % 0.8 0.0 - 1.0 % 02/10/2025 3:45 PM CDT [facility] Neutrophil Absolute 10.29(H) 1.60 - 7.50 x10E9/L 02/10/2025 3:45 PM CDT [facility] Lymphocyte Absolute 1.21 1.00 - 4.40 x10E9/L 02/10/2025 3:45 PM CDT [facility] Monocyte Absolute 0.70 0.15 - 1.00 x10E9/L 02/10/2025 3:45 PM CDT [facility] Eosinophil Absolute 0.14 0.00 - 0.60 x10E9/L 02/10/2025 3:45 PM CDT [facility] Basophil Absolute 0.02 0.00 - 0.13 x10E9/L 02/10/2025 3:45 PM CDT [facility] Blood BLOOD SPECIMEN / Unknown Venipuncture / Unknown 02/10/2025 3:36 PM CDT 02/10/2025 3:42 PM CDT Josué Bernal PA-C LAB - HEMATOLOGY ORDERABL ES Final Result Performing Organization Address [facility]/ZIP Co de Phone Number [facility] [address] [place] [address] * EKG 12-LEAD (02/10/2025 3:21 PM CDT) Only the most recent of3 resultswithin the time period is included. Ventricular Rate 76 BPM [facility] Atrial Rate 76 BPM [facility] P-R Interval 126 ms [facility] QRS Duration ms 88 ms [facility] Q-T Interval ms 378 ms [facility] QTC Calculation (Bezet) 425 ms [facility] Calculated P [place] 51 degrees [facility] Calculated R [place] 27 degrees [facility] Calculated T [place] 70 degrees [facility] Interpretation EKG NORMAL SINUS RHYTHM NORMAL ECG WHEN COMPARED WITH ECG OF 30-JAN-2025 01:07, NO SIGNIFICANT CHANGE WAS FOUND Confirmed by DO GRAVES STEPHANIE ([id number]) on 02/11/2025 6:01:10 PM [facility] 02/10/2025 3:21 PM CDT 02/11/2025 6:01 PM CDT us Josué Bernal PA-C ECG ORDERABLES Edited Re sult - Final Performing Organization Address [facility] Co de Phone Number [facility] * LIPID PROFILE (01/31/2025 3:07 AM CDT) Cholesterol 176 <200 mg/dL 01/31/2025 4:09 AM CDT [facility] Triglycerides 114 <150 mg/dL 01/31/2025 4:09 AM CDT [facility] HDL Cholesterol 60 >40 mg/dL 4:09 AM CDT [facility] LDL Calculated 93 <130 mg/dL 01/31/2025 4:09 AM CDT [facility] Comment:LDL is calculated us ing the Friedewald equation. VLDL Calculated 23 <=30 mg/dL 4:09 AM CDT [facility] Chol HDL Ratio 2.9 <4.5 01/31/2025 4:09 AM CDT [facility] LDL/HDL Ratio 1.6 <5.0 01/31/2025 4:09 AM CDT [facility] Blood BLOOD SPECIMEN / Unknown Lab Venipuncture / Unknown 01/31/2025 3:07 AM CDT 01/31/2025 3:36 AM CDT Gil Perrin MD LAB - CHEMISTRY ORDERABLES Fin al Result Performing Organization Address [facility]/ZIP Co de Phone Number [facility] [address] [place], [place] [id number] * STREP A SCREEN DIRECT W RFLX STREP A CULTURE (01/30/2025 2:50 PM CDT) Strep A Rapid Negative Negative 01/30/2025 3:17 PM CDT [facility] Microbiology ENTIRE ANTERIOR SURFACE OF NECK / Unknown Collection / Unknown 01/30/2025 2:50 PM CDT 01/30/2025 3:04 PM CDT Narrative [facility] - 01/30/2025 3:17 PM CDT Test has reflexed to a Strep A culture. Jayla Bettencourt RN [employer] TEACHER LAB - MICROBIOLOGY ORDERABLES Final Result Performing Organization Address [facility] de Phone Number [facility] [address] [place] [address] * CULTURE STREP GROUP A (01/30/2025 2:50 PM CDT) Culture Negative for beta-hemolytic Streptococcus Group A TERRANCE 01/31/2025 10:13 PM CDT [facility] Microbiology ENTIRE ANTERIOR SURFACE OF NECK / Unknown Collection / Unknown 01/30/2025 2:50 PM CDT 01/30/2025 3:04 PM CDT Jayla Bettencourt RN [employer] LAB - MICROBIOLOGY ORDERABLES Final Result Performing Organization Address City/[facility]/ZIP Co de Phone Number [facility] [address] [place] [address], [facility] [phone] * (ABNORMAL) C-REACTIVE PROTEIN (01/30/2025 8:50 AM CDT) Pathologist [facility] C-Reactive Protein 1.74(H) <=0.50 mg/dL 01/30/2025 10:00 AM CDT [facility] Blood BLOOD SPECIMEN / Unknown Lab Venipuncture / Unknown 01/30/2025 8:50 AM CDT 01/30/2025 9:16 AM CDT Jayla Bettencourt [facility] - CHEMISTRY OR DERABLES Final Result Performing Organization Address City/[facility]/ZIP Co de Phone Number [facility] [address] [place] [address] * (ABNORMAL) ERYTHROCYTE SEDIMENTATION RATE (01/30/2025 8:50 AM CDT) [facility] Erythrocyte Sedimentation Rate Automated 41(H) 0 - 30 MM/HR 01/30/2025 9:24 AM CDT [facility] Blood BLOOD SPECIMEN / Unknown Lab Venipuncture / Unknown 01/30/2025 8:50 AM CDT 01/30/2025 9:16 AM CDT Jayla Bettencourt [facility] - HEMATOLOGY O RDERABLES Final Result Performing Organization Address City/[facility] Co de Phone Number [facility] [address] [place] [address] * XR Chest 1Vw Portable (01/30/2025 2:21 [...] - 4.940 uIU/mL 01/30/2025 2:26 AM CDT [facility] Blood BLOOD SPECIMEN / Unknown Venipuncture / Unknown 01/30/2025 1:50 AM CDT 01/30/2025 1:50 AM CDT Patsy Hill MD LAB - CHEMISTRY ORDERABLES Fin al Result [facility] [address] [place] [address] * NM MYOCARD PERF REST STRESS (01/06/2025 11:21 AM CDT) Anatomical Region Laterality Modality Chest Nuclear Medicine 01/06/2025 9:22 AM CDT Narrative Procedure Note Genaro Uribe MD - 01/06/2025 [place] [address] Nuclear Myocardial Perfusion Scan Report Pat.Name: MOHSEN MARQUES Pat.ID: [id number] .Date: 01/06/2025 Refer.MD: Mike Bhandari Exam Time: 9:22:00 AM Study Type:Nuclear Myocardial Perfusion Scan Age: 2 1955,69Y Sex: FEMALE Race: [facility] Visit ID: [id number] ++++++++++++++++++++++++++++++++++++ SUMMARY: ++++++++++++++++++++++++++++++++++++ FINDINGS: Myocardial perfusion imaging [...] Signed 01/06/2025 01:54 PM Genaro Uribe MD, [facility] Mike Bhandari MD NM ORDERABLES Edited [...] 7:00 AM Patient Status: I/P Study Site: [facility] Primary Location: [facility] EStudy Info Exam Type: [...] 7:00 AM Patient Status: I/P Study Site: [facility] Primary Location: [facility] EStudy Info Exam Type: STRESS TEST [...] detected Not detected 01/03/2025 1:17 PM CDT [facility] Coronavirus 229E PCR Not detected Not detected 01/03/2025 1:17 PM CDT [facility] Coronavirus HKU1 PCR Not detected Not detected 01/03/2025 1:17 PM CDT [facility] Coronavirus NL63 PCR Not detected Not detected 01/03/2025 1:17 PM CDT [facility] Coronavirus OC43 PCR Not detected Not detected 01/03/2025 1:17 PM CDT [facility] COVID-19 PCR Not detected Not detected 01/03/2025 1:17 PM CDT [facility] Human Metapneumovirus PCR Not detected Not detected 01/03/2025 1:17 PM CDT [facility] Human Rhinovirus/Enterov irus PCR Not detected Not detected 01/03/2025 1:17 PM CDT [facility] Influenza A PCR Not detected Not detected 01/03/2025 1:17 PM CDT [facility] Influenza B PCR Not detected Not detected 01/03/2025 1:17 PM CDT [facility] Parainfluenza Virus 1 PCR Not detected Not detected 01/03/2025 1:17 PM CDT [facility] Parainfluenza Virus 2 PCR Not detected Not detected 01/03/2025 1:17 PM CDT [facility] Parainfluenza Virus 3 PCR Not detected Not detected 01/03/2025 1:17 PM CDT [facility] Parainfluenza Virus 4 PCR Not detected Not detected 01/03/2025 1:17 PM CDT [facility] Respiratory Syncytial Virus PCR Not detected Not detected 01/03/2025 1:17 PM CDT [facility] Bordetella parapertussis PCR Not detected Not detected 01/03/2025 1:17 PM CDT [facility] Bordetella pertussis PCR Not detected Not detected 01/03/2025 1:17 PM CDT [facility] Chlamydia pneumoniae PCR Not detected Not detected 01/03/2025 1:17 PM CDT [facility] Mycoplasma pneumoniae PCR Not detected Not detected 01/03/2025 1:17 PM CDT [facility] Microbiology SPECIMEN FROM NASOPHARYNGEAL STRUCTURE / Unknown Collection / Unknown 01/03/2025 8:14 AM CDT 01/03/2025 8:30 AM CDT Narrative [facility] - 01/03/2025 1:17 PM CDT This nucleic amplification assay has received FDA authorization via the [place] [employer]. Mike Bhandari MD LAB - MICROBIOLOGY ORDERABLES Final Result [facility] [address] [place] [address], [facility] [phone] * PROCALCITONIN LEVEL (01/03/2025 2:31 AM CDT) Procalcitonin 0.05 <0.10 ng/mL 01/03/2025 9:00 AM CDT [facility] Blood BLOOD SPECIMEN / Unknown Lab Venipuncture / Unknown 01/03/2025 2:31 AM CDT 01/03/2025 4:20 AM CDT Narrative [facility] - 01/03/2025 9:00 AM CDT The [...] Change in Procalcitonin Calculator is available at [email or web address] If clinical picture has not improved and PCT remains high, reevaluate and consider treatment failure or other causes. Mike Bhandari MD LAB - CHEMISTRY ORDERABLES [facility] Result [facility] [address] [place] [address] * SARS-COV-2 (COVID-19) RAPID (01/02/2025 3:45 PM CDT) [facility] COVID-19 PCR Not detected Not detected 01/03/20 25 4:22 PM CDT [facility] Microbiology SPECIMEN FROM NASOPHARYNGEAL STRUCTURE / Unknown Collection / Unknown 01/02/2025 3:45 PM CDT 01/02/2025 3:51 PM CDT Narrative [facility] - 01/02/2025 4:22 PM CDT The [...] LAB - MICROBIOLOGY ORDERABLE S Final Result [facility] [address] [place] [address] * (ABNORMAL) HEMOGLOBIN A1C (01/02/2025 12:16 PM CDT) Hemoglobin A1c 9.3(H) <5.7 % 01/02/2025 7:02 PM CDT [facility] Estimated Average Glucose 220 mg/dL 01/02/2025 7:02 PM CDT [facility] Blood BLOOD SPECIMEN / Unknown Venipuncture / Unknown 01/02/2025 12:16 PM CDT 01/02/2025 12:17 PM CDT Narrative [facility] - 01/02/2025 7:02 PM CDT HbA1c [...] ANGEL SPEARS Final Result Performing Organization Address [facility] Co de Phone Number [facility] [address] [place] [address] * B-TYPE NATRIURETIC PEPTIDE (01/02/2025 12:16 PM CDT) [facility] BNP 46 <=100 pg/mL 01/02/2025 12:41 PM CDT [facility] Blood BLOOD SPECIMEN / Unknown Venipuncture / Unknown 01/02/2025 12:16 PM CDT 01/02/2025 12:17 PM CDT [facility] - 01/02/2025 12:41 PM CDT A [...] Performing Organization Address [facility] Co de Phone Number [facility] [address] [place] [address] * HEPATITIS C AB SCREEN RFLX NAAT QUANT (02/21/2023 6:30 PM CDT) [facility] Hepatitis C Antibody Non-react hugh Non-reac tive 02/21/2023 7:32 PM CDT [facility] Comment:Hepatitis C Antibody screen indicates [...] LAB - CHEMISTRY ORDERABLES Fi nal Result [place] [id number] [place] [address], [facility] [phone] from Last 3 Months or Most Recently Relevant to Health Maintenance Insurance [facility] MANAGED MEDICARE ADV [facility] MANAGED MEDICARE ADV [place] [id number] MEDICAID - [place] Advance Directives * Full [...] 8:11 PM 06/17/2023 2:06 PM Care Teams Hand Chain Maker Relationship Specialty Start Date End Date Justen Gale MD PCP - General 07/05/21
--- OUTSIDE RECORDS SUMMARY | 2025-02-25 04:12 | XMS_ITS | Encounter Summary ---
Author Organization [facility] Address [address] [place] [address] Phone Care Team Providers Care Dye Feeder Name Role Phone Liu Jerez MD Unavailable Albert Corbin MD Unavailable Justen Gale MD Primary Care Provider Khris Arthur MD Unavailable [phone] oK Melendez MD Unavailable John Paul Moyer MD Unavailable Annel Rod MD Unavailable Anali MARSHALL MD, Carlos M. Unavailable [phone] Encounter Details Date Type Department Care Team [...] on file Legal Sex Female 12:24 AM PENSION CONSULTANT Gender Identity Not on file Sexual [...] COVID: Recovered 02/10/2022 02/10/2022 06/10/2022 3:05 AM PENSION CONSULTANT Exposure, COVID-19 Comment:Added automatically based on COVID19 lab answers indicating exposure risk 02/11/2022 02/11/2022 02/15/2022 9:06 AM C DT COVID: Suspected 05/14/2022 05/14/2022 05/14/2022 10:41 AM PENSION CONSULTANT COVID: Suspected 06/07/2022 06/07/2022 06/07/2022 12:28 PM PENSION CONSULTANT COVID: Suspected 06/21/2022 06/21/2022 06/21/2022 2:12 AM PENSION CONSULTANT COVID: Suspected 10/05/2022 10/05/2022 10/05/2022 7:40 PM CDT COVID: Suspected 01/04/2024 01/04/2024 01/04/2024 10:30 PM CDT COVID: Suspected 02/14/2024 02/14/2024 02/15/2024 12:36 AM CDT COVID: Suspected 07/01/2024 07/01/2024 07/01/2024 2:53 PM CDT COVID: Suspected 07/01/2024 07/01/2024 07/02/2024 3:05 AM CDT COVID: Suspected 12/08/2024 12/08/2024 12/08/2024 1:50 AM CDT documented as of this encounter Care Teams Dye Feeder Relationship Specialty Start Date End Date Justen Gale MD [address] [address] PCP - General 10/09/17 Liu Jerez MD Consulting Physician Gastroenterology 07/28/17 [place] [address] [facility] [address] [place] [address] Consulting Physician Pulmonary Disease 08/03/17 Khris Arthur MD [address] [facility] [address] [place] [address] Medical Oncologist/Uniform Maker Medical Oncology 10/23/17 [place] [address] [facility] [address] [place] [address] Surgeon Orthopedic Surgery 10/23/17 [place] [address] [facility] [address] [place] [address] Consulting Physician Pain Management 10/23/17 [place] [address] [facility] [facility] [address] [place] [address] Referring Physician General Surgery 01/26/18 [place] [address] [facility] [address] [place] [address] Consulting Physician Neurology 01/26/18 documented as of this encounter
--- OUTSIDE RECORDS SUMMARY | 2025-02-25 04:12 | XMS_ITS | Encounter Summary ---
Author Organization [facility] Address [address] [place] [address] Phone Care Team Providers Care Sister Superior Name Role Phone Justen Gale MD Primary Care Provider David Roberts APRN, ADVERTISER Unavailable [phone] Annel Rod MD Unavailable Reason for Visit * Reason Onset Date Comments Sore Throat 09/02/2024 Encounter Details Date Type Department Care Team (Late st Contact Info) Description 09/02/2024 Nurse Triage [facility] [address] [place] [id number] Justen Gale MD #[address] [address] Sore Throat Social History Tobacco Use Types Packs/Day Years Used Date Smoking Tobacco: Never Smokeless Tobacco: Never Alcohol Use Standard Drinks/Week Comments No 0 (1 standard drink = 0.6 oz pur e alcohol) [facility] Utilities Answer Date Recorded In the past 12 months has [employer] electric, gas, oil, or water company threatened [...] you attend chur or latter day services? More than 4 [...] Score - Questions 1-9 0 07/23 [facility] - [...] Pharmacy, medications, and allergies reviewed. Discussed utilizing eTobb to: discuss if they would prefer a eTobb message or phone call response - See [...] Ulcers - Caller Reports Outcome: Transfer to figure clerk queue Reason: Caller denied all higher acuity questions The caller accepted this outcome. Caller Denied: * Struggling for each breath (severe trouble breathing) * Can't swallow saliva (drooling) documented in this encounter Plan of Treatment Upcoming Encounters Date Type Department Care Team (Late st Contact Info) Description 03/19/2025 2:00 PM FIRER LOCOMOTIVE Office Visit [facility] Endocrinology - [place] [address] [place] [address] Annel Rod MD [address] [place] [address] 05/29/2025 1:30 PM FIRER LOCOMOTIVE Office Visit [facility] Family Medicine [facility] [address] [place] [address] Justen Gale MD [address] [address] documented as of this encounter Visit Diagnoses Not on filedocumented in this encounter Additional Health Concerns Infection Onset Date Last Indicated Resolved Time Respiratory Rule-Out 11/18/2024 11/18/2024 025 7:18 AM CDT Assessment Noted Time PHQ-9 Depression Total Score: 0 08/02/19 25 1:09 PM CDT documented as of this encounter Care Teams Sister Superior Relationship Specialty Start Date End Date Justen Gale MD [address] [address] PCP - General Family Medicine 10/17/17 David Roberts APRN, ADVERTISER [address] [place] [address] Nurse Practitioner Advanced Practice Nurse 01/31/22 Annel Rod MD [address] [address] Consulting Physician Endocrinology 07/01/22 documented as of this encounter
--- OUTSIDE RECORDS SUMMARY | 2025-02-25 04:12 | XMS_ITS | Encounter Summary ---
Author Organization [facility] Address [address] [place] [address] Phone Care Team Providers Care Server Name Role Phone Justen Gale MD Primary Care Provider [phone] David Roberts APRN, EFFICIENCY MANAGER Unavailable [phone] Annel Rod MD Unavailable Reason for Visit * Reason Onset Date Comments Breathing Problem 08/07/2024 Muscle Pain 08/07/2024 Encounter Details Date Type Department Care Team (Late st Contact Info) Description 08/07/2024 Nurse Triage [facility] [address] [place] [address] Justen Gale MD #[address] [address] Breathing Problem; Muscle Pain Social History Tobacco [...] 1-9 0 07/23 [facility] - Occupational Stress Questionnaire Answer Date Recorded [...] Miscellaneous Notes * Telephone Encounter - Angelito Alegira APRN, CNP - 08/07/2024 1:57 PM CDT [...] She reports this was discussed with the help desk support specialist and provider was to be notified in [...] Encouraged caller to bring cell phone and caul puller to contact EMS 911 if symptoms [...] (e.g., disoriented, slurred speech) Protocols used: Breathing Wswmljetan-W-QI * Telephone Encounter - Neha Tomlinson - 08/07/2024 1:30 PM CDT Symptoms: Altered Mental Status, Body Aches, Breathing Trouble Outcome: Warm transfer to an emergent RN NOW! Reason: Trouble walking The caller accepted this outcome. documented in this encounter Plan of Treatment Upcoming Encounters Date Type Department Care Team (Late st Contact Info) Description 03/19/2025 2:00 PM BASE FILLER OPERATOR Office Visit [facility] Medical [facility] - Endocrinology - [place] [address] [place] [address] Annel Rod MD #2 [facility] [address] [place] [address] 05/29/2025 1:30 PM BASE FILLER OPERATOR Office Visit [facility] Medical [facility] - Family Medicine [facility] #[address] [place] [address] Justen Gale MD #2 [facility] [address] [place] [address] documented as of this encounter Visit Diagnoses Not on filedocumented in this encounter Additional Health Concerns Infection Onset Date Last Indicated Resolved Time Respiratory Rule-Out 11/18/2024 11/18/2024 025 7:18 AM CDT Assessment Noted Time PHQ-9 Depression Total Score: 0 08/02/19 25 1:09 PM CDT documented as of this encounter Care Teams Server Relationship Specialty Start Date End Date Justen Gale MD #2 [facility] [address] [place] [address] PCP - General Family Medicine 10/17/17 David Roberts APRN, EFFICIENCY MANAGER [address] [place] [address] Nurse Practitioner Advanced Practice Nurse 01/31/22 Annel Rod MD #[address] [address] Consulting Physician Endocrinology 07/01/22 documented as of this encounter
--- OUTSIDE RECORDS SUMMARY | 2025-02-25 04:12 | XMS_ITS | Encounter Summary ---
Author Organization [facility] Address [address] [place] [address] Phone Care Team Providers Care Line Leader Name Role Phone Justen Gale MD Primary Care Provider David Roberts APRN, DIRECTOR OF CAREER RESOURCES Unavailable [phone] Annel Rod MD Unavailable Reason for Visit * Reason Onset Date Comments Advice Only 11/21/2023 Encounter Details Date Type Department Care Team (Late st Contact Info) Description 11/21/2023 Telephone [facility] [address] [place] [address] Justen Gale MD #[address] [address] Advice Only Social History Tobacco Use Types [...] 11/21/2023 3:17 PM CDT RFC: Alejandra from [facility] is calling to state that patient is listed as being a diabteic but is not on a statin. Please call Alejandra (relationship to patient n/a) back regarding above referenced patient. Patient's Provider is Justen Gale MD . documented in this encounter Plan of Treatment Upcoming Encounters Date Type Department Care Team (Late st Contact Info) Description 03/19/2025 2:00 PM LOGISTICS ANALYTICS MANAGER Office Visit [facility] - Endocrinology - [place] [address] [place] [address] Annel Rod MD #2 [facility] [address] [place] [address] 05/29/2025 1:30 PM LOGISTICS ANALYTICS MANAGER Office Visit [facility] Medical [facility] - Family Medicine [facility] #[address] [place] [address] Justen Gale MD #2 [facility] [address] [place] [address] documented as of this encounter Visit Diagnoses Not on filedocumented in this encounter Additional Health Concerns Infection Onset Date Last Indicated Resolved Time COVID - 19 08/01/2024 08/01/2024 08/01/2024 3:20 PM CDT Respiratory Rule-Out 11/18/2024 11/18/2024 025 7:18 AM CDT Assessment Noted Time PHQ-9 Depression Total Score: 8 01/18/20 23 2:24 PM CDT documented as of this encounter Care Teams Line Leader Relationship Specialty Start Date End Date Justen Gale MD #2 [facility] [address] [place] [address] PCP - General Family Medicine 10/17/17 David Roberts, INFORMATION TECHNOLOGY ACCOUNT MANAGER, DIRECTOR OF CAREER RESOURCES #[address] [place] [address] Nurse Practitioner Advanced Practice Nurse 01/31/22 Annel Rod MD #[address] [phone] Consulting Physician Endocrinology 07/01/22 documented as of this encounter
--- OUTSIDE RECORDS SUMMARY | 2025-02-25 04:12 | XMS_ITS | Encounter Summary ---
Author Organization [facility] Address [address] [place] [address] Phone Care Team Providers Care Certified Pharmacy Tech Name Role Phone Justen Gale MD Primary Care Provider David Roberts APRN, BASE BRANDER Unavailable [phone] Annel Rod MD Unavailable Reason for Visit * Reason Comments Medication Refill Encounter Details Date Type Department Care Team (Late st Contact Info) Description 10/24/2022 [facility]ill [facility] - Family [facility] #[address] [place] [address] Pili Elkisn APRN, BASE BRANDER #[address] [address] Medication Refill Social History Tobacco [...] st Contact Info) Description 03/19/2025 2:00 PM MEMORIAL MARKER DESIGNER Office Visit [facility] Endocrinology [facility] #[address] [place] [address] Annel Rdo MD #[address] [address] 05/29/2025 1:30 PM MEMORIAL MARKER DESIGNER Office Visit [facility] Family Medicine [facility] [address] [place] [address] Justen Gale MD #[address] [address] documented as of this encounter Visit Diagnoses [...] as of this encounter Care Teams Certified Pharmacy Tech Relationship Specialty Start Date End Date Justen Gale MD #[address] [address] PCP - General Family Medicine 10/17/17 David Roberst APRN, BASE BRANDER [address] [place] [address] Nurse Practitioner Advanced Practice Nurse 01/31/22 Annel Rod MD #[address] [address] Consulting Physician Endocrinology 07/01/22 documented as of this encounter
--- OUTSIDE RECORDS SUMMARY | 2025-02-25 04:12 | XMS_ITS | Encounter Summary ---
Author Organization [facility] Address [address] [place] [address] Phone Care Team Providers Care Rubber Goods Inspector Tester Name Role Phone Justen Gale MD Primary Care Provider [phone] David Roberts APRN, TRACTOR DRILL OPERATOR Unavailable [phone] Annel Rod MD Unavailable Reason for Visit * Reason Comments Medication Refill Encounter Details Date Type Department Care Team (Late st Contact Info) Description 09/30/2023 [facility]ill [facility] - Endocrinology [facility] #[address] [place] [address] Annel Rod MD #[address] [address] Medication Refill Social History Tobacco [...] encounter Miscellaneous Notes * Telephone Encounter - Jeninfer Wang RN - 10/02/2023 9:27 AM CDT Medication(s) refilled and signed per [facility] Chronic Medication Refill Standing Order for Pediatric and Adult Patients. documented in this encounter Plan of Treatment Upcoming Encounters Date Type Department Care Team (Late st Contact Info) Description 03/19/2025 2:00 PM GIMP BUTTONHOLE MACHINE OPERATOR Office Visit [facility] - Endocrinology - [place] [address] [place] [address] Annel Rod MD #[address] [address] 05/29/2025 1:30 PM GIMP BUTTONHOLE MACHINE OPERATOR Office Visit [facility] Medical [facility] - Family Medicine [facility] [address] [place] [address] Justen Gale MD #[address] [address] documented as of this encounter Visit Diagnoses Not on filedocumented in this encounter Additional Health Concerns Infection Onset Date Last Indicated Resolved Time COVID - 19 08/01/2024 08/01/2024 08/01/2024 3:20 PM CDT Respiratory Rule-Out 11/18/2024 11/18/2024 025 7:18 AM CDT Assessment Noted Time PHQ-9 Depression Total Score: 8 01/18/20 23 2:24 PM CDT documented as of this encounter Care Teams Rubber Goods Inspector Tester Relationship Specialty Start Date End Date Justen Gale MD #2 [facility] [address] [place] [address] PCP - General Family Medicine 10/17/17 David Roberts APRN, TRACTOR DRILL OPERATOR #[address] [place] [address] Nurse Practitioner Advanced Practice Nurse 01/31/22 Annel Rod MD #[address] [address] Consulting Physician Endocrinology 07/01/22 documented as of this encounter
--- OUTSIDE RECORDS SUMMARY | 2025-02-25 04:12 | XMS_ITS | Encounter Summary ---
Author Organization [facility] Address [address] [place] [address] Phone Care Team Providers Care Make Ready Mechanic Name Role Phone Justen Gale MD Primary Care Provider David Roberts APRN, CITY DIRECTOR Unavailable [phone] Annel Rod MD Unavailable Reason for Visit * Reason Comments Medication Refill Encounter Details Date Type Department Care Team (Late st Contact Info) Description 02/07/2023 [facility]ill [facility] - Family Medicine [facility] #[address] [place] [address] Pili Elkins APRN, CITY DIRECTOR #[address] [address] Medication Refill Social History Tobacco [...] st Contact Info) Description 03/19/2025 2:00 PM CARDBOARD INSERTER Office Visit [facility] Medical Group - Endocrinology [facility] #[address] [place] [address] Annel Rod MD #[address] [address] 05/29/2025 1:30 PM CARDBOARD INSERTER Office Visit [facility] Medical Group - Family Medicine [facility] [address] [place] [address] Justen Gale MD #2 [facility] [address] [place] [address] documented as of this encounter Visit Diagnoses [...] documented as of this encounter Care Teams Make Ready Mechanic Relationship Specialty Start Date End Date Justen Gale MD #2 [facility] [address] [place] [address] PCP - General Family Medicine 10/17/17 David Roberts APRN, CITY DIRECTOR #2 [place] [address] Nurse Practitioner Advanced Practice Nurse 01/31/22 Annel Rod MD #2 [facility] [address] [place] [address] Consulting Physician Endocrinology 07/01/22 documented as of this encounter
--- OUTSIDE RECORDS SUMMARY | 2025-02-25 04:12 | XMS_ITS | Clinical Summary ---
Author Organization [facility] Address [address] [place] [address] Phone Care Team Providers Care Frame Coverer Name Role Phone Justen Gale MD Primary Care Provider [phone] Allergies Active Allergy Reactions Criticality Noted Date [...] - 6.0 % 09/29/2017 10:28 AM CDT [facility] EST. AVG GLUCOSE, A1C 186 mg/dL 09/29/2017 10:28 AM CDT [facility] [employer] [facility] Blood Venipuncture / Unknown 09/28/2017 8:41 PM CDT 09/28/2017 8:46 PM CDT Narrative [facility] - 09/29/2017 10:28 AM CDT HGB A1C INTERPRETATION NORMAL: <5.7% PRE-DIABETES: 5.7 - 6.4% DIABETES: 6.5% OR GREATER us Francisco Castaneda MD CHEMISTRY ORDERABLES Final Resul t [facility] [employer] [facility]# [id number] [address] [place] [address] * (ABNORMAL) LIPID PANEL (09/28/2017 8:41 PM CDT) CHOLESTEROL 174 <200 mg/dL 09/30/2017 2:45 AM CDT [facility] [employer] [facility] TRIGLYCERIDE 109 <150 mg/dL 09/30/2017 2:45 AM CDT [facility] [employer] [facility] HDL 45 40 - 59 mg/dL 09/30/2017 2:45 AM CDT [facility] [employer] [facility] LDL CALCULATED 107(H) <100 mg/dL 09/30/2017 2:45 AM CDT [facility] [employer] [facility] NON-HDL CHOLESTEROL 129 <130 mg/dL 09/30/2017 2:45 AM CDT [facility] [employer] [facility] Blood Venipuncture / Unknown 09/28/2017 8:41 PM CDT 09/28/2017 8:46 PM CDT Narrative [facility] - 09/30/2017 2:45 AM CDT TOTAL [...] Castaneda MD CHEMISTRY ORDERABLES Final Resul t [facility] [employer] [facility] CLIA# [id number] [address] [place] [address] from Last 3 Months or Most Recently Relevant to Health Maintenance Insurance Advance Directives For more information, please contact: [phone] * Full Code (Latest Code Status on File) Date Activated Date Inactivated Comments 09/29/2017 7:45 AM 09/30/2017 9:14 PM * Full Code Date Activated Date Inactivated Comments 09/29/2017 1:25 AM 09/29/2017 7:45 AM Care Teams Frame Coverer Relationship Specialty Start Date End Date Justen Gale MD [address] [facility] [address] [place] [id number] PCP - General Cardiovascular Disease 09/14/17
[2025-02-25 04:17] LABS: Hematocrit 39.8 % (37.0-47.0); Hemoglobin 12.3 g/dL (12.0-15.0); Immature Granulocyte Percent A 0.7 % (0-0.5); Lymphocytes Absolute Auto 2.62 K/mm3 (0.9-3.2); Mean Corpuscular HGB Conc 30.9 g/dl (32-36); Mean Corpuscular Hemoglobin 28.2 pg (26-34); Mean Corpuscular Volume 91.3 fl (80-100); Nucleated Red Blood Cells Absolute Auto 0.000 K/mm3 (0.0-0.012); Nucleated Red Blood Cells Perc 0.0 % (0.0-0.2); Platelet Count Result 289 k/mm3 (150-375); Red Blood Count 4.36 M/mm3 (4.2-5.4); White Blood Count 15.2 K/mm3 (4.5-10.0)
--- NOTE | 2025-02-25 04:24 | ED.GENADULT ---
HPI - General Adult General Chief complaint: Neuro Symptoms/Deficit Stated complaint: medication reaction Time Seen by Provider: 02/25/25 03:56 History of Present Illness HPI narrative: 69-year-old female with a history of pulmonary embolism on Xarelto, CHF, polymyositis being treated with methotrexate recently. Patient presents to the emergency department today with suspected reaction to her medication. She states that she has been on his medication recently including methotrexate and feels like he is having an adverse reaction to her. She endorses bilateral tremors and feeling of anxiety as well as a posterior headache. Symptoms going on since last night about 10:30 when she took her medications. She presents 6 hours later with persistent complaints. Thinks it is medication side effects. Patient denies any chest pain, shortness a breath, nausea, vomiting, weakness or paresthesias. No sensory deficits. Patient is well-known to this facility and presents frequently various chief complaints without any significant findings on workup. Related Data Home Medications ?Medication ?Instructions ?Recorded ?Confirmed ?Last Taken ?Type exemestane 25 mg tablet 25 mg PO HS 01/06/20 11/16/24 11/15/24 History insulin glargine 100 unit/mL (3 50 unit subcut QAM 01/06/20 11/16/24 11/15/24 History mL) subcutaneous pen (Lantus Solostar U-100 Insulin) ropinirole 5 mg tablet 5 mg PO HS 01/06/20 11/16/24 11/15/24 History insulin lispro 100 unit/mL 32 unit subcut TID 03/19/22 11/16/24 11/15/24 History subcutaneous pen (Humalog KwikPen (U-100) Insulin) oxybutynin chloride 15 mg 15 mg PO DAILY 11/06/22 11/16/24 11/15/24 History tablet,extended release 24 hr gabapentin 300 mg capsule 300 mg PO TID 06/25/23 11/16/24 11/15/24 History prednisone 10 mg tablet 10 mg PO DAILY 10/08/24 11/16/24 11/15/24 History rivaroxaban 20 mg tablet (Xarelto) 20 mg PO 0900 10/08/24 11/16/24 11/15/24 History oxybutynin chloride 10 mg mg PO 02/15/25 Unknown History tablet,extended release 24 hr sulfamethoxazole 800 tablet 02/15/25 Unknown History mg-trimethoprim 160 mg tablet tamsulosin 0.4 mg capsule mg PO 02/15/25 Unknown History Allergies Allergy/AdvReac Type Severity Reaction Status Date / Time ceftriaxone Allergy Severe SOB Verified 12/29/24 02:00 cephalexin Allergy Severe Difficulty Verified 12/29/24 02:00 Breathing Cephalosporins Allergy Severe Difficulty Verified 12/29/24 02:00 Breathing lorazepam Allergy Severe Swelling Verified 12/29/24 02:00 trazodone Allergy Severe Swelling Verified 12/29/24 02:00 of Lip/Tongue/Throat metoclopramide Allergy Intermediate Other Verified 12/29/24 02:00 azithromycin Allergy Mild Itching Verified 12/29/24 02:00 chlorhexidine Allergy Mild BLISTERING Verified 12/29/24 02:00 levofloxacin Allergy Mild Hives / Verified 12/29/24 02:00 Red Face ketorolac Allergy Itching Verified 12/29/24 02:00 latex Allergy Rash Verified 12/29/24 02:00 meropenem Allergy Rash Verified 12/29/24 02:00 nitrofurantoin Allergy Itching Verified 12/29/24 02:00 piperacillin Allergy Rash Verified 12/29/24 02:00 reslizumab Allergy Hives Verified 12/29/24 02:00 trimethoprim (From Allergy Itching Verified 12/29/24 02:00 Sulfamethoxazole-Trimethoprim) sulfamethoxazole (From AdvReac Severe Anaphylaxis Verified 12/29/24 02:00 Sulfamethoxazole-Trimethoprim) clindamycin AdvReac Intermediate Nausea and Verified 12/29/24 02:00 Vomiting doxycycline AdvReac Mild Itching Verified 12/29/24 02:00 oxycodone AdvReac Mild Vomiting Verified 12/29/24 02:00 amlodipine AdvReac Swelling Verified 12/29/24 02:00 lisinopril AdvReac Swelling Verified 12/29/24 02:00 pregabalin AdvReac Swelling Verified 12/29/24 02:00 Review of Systems Review of Systems: As reviewed above in HPI All systems reviewed & are unremarkable except as noted in HPI and below PMFSH Past Medical History Medical History Polymyositis with myopathy Gastroparesis Obstructive sleep apnea on CPAP Restless leg syndrome Pulmonary embolism positive for coagulation workup Deep venous thrombosis Type 2 diabetes mellitus Throat pain in adult Oral ulcer Chronic anticoagulation Overactive bladder Irritable bowel syndrome Congestive heart failure Chronic back pain Collagenous colitis Morbid obesity Breast cancer Depression Anxiety Peripheral neuropathy Kidney stone Multiple thyroid nodules Surgical History Surgical History History of umbilical hernia repair History of colonoscopy Status post insertion of spinal cord stimulator History of cystoscopy History of ureter stent History of cholecystectomy History of bilateral mastectomy History of esophagogastroduodenoscopy (EGD) History of right oophorectomy History of total right knee replacement History of cardiac catheterization Reportedly negative for coronary artery disease. Family History Family History Mother Diabetes mellitus Acute myocardial infarction Congestive heart failure Hypertension Cerebrovascular accident Coronary artery disease Father Prostate carcinoma Sibling Acute myocardial infarction Breast cancer Chronic obstructive pulmonary disease Social History Social History Social History: Surrogate medical decision maker: Jimmie Marques, spouse. (Previously listed though she reports being now) Code status: Full code. Smoking packs per day: 0 Smoking cigarettes per day: 0.0 Years smoked: 2 Smoking pack-years: 0.00 Smoking status: Never smoker Second hand tobacco smoke exposure: Yes Alcohol intake: never Substance use: never Substance use type: does not use Do You Feel Safe in your Home?: Yes Lack of Transportation: YES Lack of Food: Never True Current Housing: I Have Housing Concerned About Future Housing: No Difficulty Paying Gas/Electric Bills: No Difficulty Paying for Meds: No Currently Unemployed: No Education: Associate Degree Difficulty w/ Childcare or Family Care: No Living arrangements: with family Additional living arrangements comments: daughter Additional occupation/education comments: Disabled. Spiritual care concerns: No Exam Narrative: GENERAL: Very anxious appearing but not any distress HEAD: [Normocephalic, atraumatic.] EYES: [PERRLA and EOMI.] ENT: Nares clear, no rhinorrhea or epistaxis. Mucous membranes moist. NECK: Supple. CHEST: [Clear to auscultation. No respiratory distress.] HEART: [Regular rate and rhythm]. No murmur heard. [Normal peripheral pulses.] ABDOMEN: [Soft, nondistended], [nontender], [No rigidity or guarding] EXTREMITIES: Normal range of motion. [No edema.] SKIN: Warm, dry, no rash. NEURO: No focal neurological deficits. Awake alert oriented x3. Answering all my questions appropriately. No pupillary dilation or asymmetry. Extraocular movements are intact. No facial asymmetries. No slurring speech. No paresthesias or sensation loss in the arms or legs. No drift in the arms or legs. No ataxia. Bilateral fine tremor noted in the arms but not legs. PSYCH: Very anxious but not any acute distress. Course Vital Signs Vital signs: Vital Signs Temperature 37.2 C 02/25/25 04:01 Pulse Rate 91 02/25/25 04:01 Respiratory Rate 15 02/25/25 04:01 Blood Pressure 143/79 H 02/25/25 04:01 Pulse Oximetry 99 02/25/25 04:01 Temperature 37.2 C 02/25/25 04:01 Pulse Rate 85 02/25/25 06:02 Respiratory Rate 22 H 02/25/25 06:02 Blood Pressure 133/81 02/25/25 06:02 Pulse Oximetry 95 02/25/25 06:02 Medical Decision Making MDM Narrative Medical decision making narrative: 69-year-old female with a history of pulmonary embolism on Xarelto, CHF, polymyositis being treated with methotrexate recently. Patient presents to the emergency department today with suspected reaction to her medication. She states that she has been on his medication recently including methotrexate and feels like he is having an adverse reaction to her. She endorses bilateral tremors and feeling of anxiety as well as a posterior headache. Symptoms going on since last night about 10:30 when she took her medications. She presents 6 hours later with persistent complaints. Thinks it is medication side effects. Patient denies any chest pain, shortness a breath, nausea, vomiting, weakness or paresthesias. No sensory deficits. Patient is well-known to this facility and presents frequently various chief complaints without any significant findings on workup. No focal neurological deficits. Awake alert oriented x3. Answering all my questions appropriately. No pupillary dilation or asymmetry. Extraocular movements are intact. No facial asymmetries. No slurring speech. No paresthesias or sensation loss in the arms or legs. No drift in the arms or legs. No ataxia. Bilateral fine tremor noted in the arms but not legs. Patient is very anxious in appearance but otherwise has normal vital signs and a mildly elevated blood glucose. No signs or symptoms of stroke. Symptoms consistent with anxiety versus medication side effect versus other problem like electrolyte imbalances or less likely infectious process. CT of the head ordered as well as laboratory studies and workup. Patient re-evaluated frequently. Patient asking for something for pain but has multiple allergies. Given Dilaudid. Good affect and she is ambulatory with a steady gait without any difficulties. Resting comfortably on repeat evaluations and playing on her cellphone without any apparent distress or tremors. CT scan was unremarkable for any acute findings. Chest x-ray shows no acute abnormality. She has some chronically elevated leukocytosis of 15. No signs of active infection. Normal hemoglobin. Normal platelet count. Electrolytes are normal. Glucose mildly elevated but stable and chronic. Negative troponin. Negative LFTs. Deemed stable for discharge home at this time given her unremarkable workup and no urgent or emergent concerns raise. Patient was given return precautions and repeat vital signs are stable and she was ambulatory without any difficulty. Safe for discharge. Medical Records Medical records reviewed: Yes I reviewed the external patient's medical records. Vital Signs Vital Signs: Vital Signs Temperature 37.2 C 02/25/25 04:01 Pulse Rate 91 02/25/25 04:01 Respiratory Rate 15 02/25/25 04:01 Blood Pressure 143/79 H 02/25/25 04:01 Pulse Oximetry 99 02/25/25 04:01 Temperature 37.2 C 02/25/25 04:01 Pulse Rate 85 02/25/25 06:02 Respiratory Rate 22 H 02/25/25 06:02 Blood Pressure 133/81 02/25/25 06:02 Pulse Oximetry 95 02/25/25 06:02 Lab Data Lab results reviewed: Yes I reviewed the patient's lab results. 02/25/25 04:07 02/25/25 04:07 Labs: Lab Results 02/25/25 02/25/25 Range/Units 03:52 04:07 WBC 15.2 H (4.5-10.0) K/mm3 RBC 4.36 (4.2-5.4) M/mm3 Hgb 12.3 (12.0-15.0) g/dL Hct 39.8 (37.0-47.0) % MCV 91.3 (80-100) fl MCH 28.2 (26-34) pg MCHC 30.9 L (32-36) g/dl RDW 15.0 H (11.5-14.5) % Plt Count 289 (150-375) k/mm3 MPV 9.7 (7.4-10.4) fl Immature Gran % (Auto) 0.7 H (0-0.5) % Neut % (Auto) 73.8 H (45.5-73.1) % Lymph % (Auto) 17.2 L (18.3-44.2) % [place] % (Auto) 7.2 (2.6-8.5) % Eos % (Auto) 0.8 (0-4.4) % Baso % (Auto) 0.3 (0.2-1.2) % Lymph # (Auto) 2.62 (0.9-3.2) K/mm3 [place] # (Auto) 1.1 H (0.1-0.6) K/mm3 Eos # (Auto) 0.1 (0-0.3) K/mm3 Baso # (Auto) 0.0 (0.0-0.1) K/mm3 Abs Immat Gran (auto) 0.10 H (0.00-0.031) K/mm3 Absolute Neuts (auto) 11.3 H (1.3-6.7) K/mm3 Absolute Nucleated RBC 0.000 (0.0-0.012) K/mm3 Nucleated RBC % 0.0 (0.0-0.2) % PT 16.4 H (11.1-14.7) Seconds INR 1.3 APTT 28.4 (22.3-36.8) Seconds Sodium 137 (137-145) mmol/L Potassium 4.5 (3.4-5.0) mmol/L Chloride 104 (98-107) mmol/L Carbon Dioxide 25 (22-30) mmol/L Anion Gap 8 (4-12) mmol/L BUN 21 H D (7-17) mg/dL Creatinine 0.75 (0.7-1.0) mg/dL Estim Creat Clear Calc 79 ml/min Estimated GFR > 60 (59 - ) Glucose 231 H (65-110) mg/dL POC Capillary Glucose 228 H (65-105) mg/dl Calcium 9.1 (8.4-10.2) mg/dL Total Bilirubin 0.7 (0.2-1.3) mg/dL AST 33 (14-36) U/L ALT 35 (6-35) U/L Alkaline Phosphatase 66 (38-126) U/L Troponin I 0.012 (0.000-0.034) ng/mL Total Protein 7.6 (6.3-8.2) g/dL Albumin 4.1 (3.5-5.1) g/dL Imaging Data Attestation: I personally reviewed and interpreted this imaging study as follows: My impression: No acute intracranial findings Discharge Plan Discharge Clinical Impression: Adverse drug effect Patient Disposition: Home Condition: Stable Instructions: Antibiotic Form Additional Instructions: Laboratory studies are unrevealing and your CT scan shows no stroke or acute findings. Symptoms could be secondary to the medication side effects of the new medication you are on. Follow-up with your regular doctor to discuss this and return with any emergent concerns at any times. Patient Language: Indian Prescriptions: No Action gabapentin 300 mg capsule 300 mg PO TID oxybutynin chloride 10 mg tablet extended release 24hr PO sulfamethoxazole-trimethoprim 800-160 mg tablet tamsulosin 0.4 mg capsule PO exemestane 25 mg tablet 25 mg PO HS ropinirole 5 mg tablet 5 mg PO HS insulin glargine [Lantus Solostar U-100 Insulin] 100 unit/mL (3 mL) insulin pen 50 unit SUBCUT QAM insulin lispro [Humalog KwikPen Insulin] 100 unit/mL insulin pen 32 unit SUBCUT TID Patient Comments: PATIENT EXPERIENCES LOW BLOOD SUGAR IN THE HOSPITAL albuterol sulfate 90 mcg/actuation HFA aerosol inhaler 1 inh inhalation QID PRN (Reason: shortness of breath or wheezing) Qty: 6.7 0RF oxybutynin chloride 15 mg tablet extended release 24hr 15 mg PO DAILY ondansetron 4 mg tablet,disintegrating 4 mg PO Q8H PRN (Reason: nausea and vomiting) Qty: 10 0RF lidocaine 5 % ointment 1 applic topical TID PRN (Reason: skin irritation) Qty: 50 0RF prednisone 10 mg tablet 10 mg PO DAILY Xarelto 20 mg tablet 20 mg PO 0900 pantoprazole [Protonix] 40 mg tablet,delayed release (DR/EC) 40 mg PO BID 30 Days Qty: 60 0RF hydrocodone-acetaminophen 10-325 mg tablet 1 tablet PO Q6H PRN (Reason: pain (scale score 7-10)) 5 Days Qty: 10 0RF furosemide [Lasix] 20 mg tablet 20 mg PO DAILY Qty: 30 0RF Follow-up/Referrals: Shahla,Justen Spicer MD [Primary Care Provider] Time of Disposition: 06:21
[2025-02-25 04:34] LABS: Alanine Aminotransferase 35 U/L (6-35); Albumin Level 4.1 g/dL (3.5-5.1); Alkaline Phosphatase 66 U/L (38-126); Anion Gap 8 mmol/L (4-12); Aspartate Amino Transferase 33 U/L (14-36); Bilirubin,Total 0.7 mg/dL (0.2-1.3); Blood Urea Nitrogen 21 mg/dL (7-17); Calcium 9.1 mg/dL (8.4-10.2); Carbon Dioxide 25 mmol/L (22-30); Chloride 104 mmol/L (98-107); Estimated CRCL calculation 79 ml/min; Estimated Glomerular Filt Rate > 60; Glucose 231 mg/dL (65-110); Potassium 4.5 mmol/L (3.4-5.0); Sodium 137 mmol/L (137-145); Total Protein 7.6 g/dL (6.3-8.2)
[2025-02-25 04:37] LABS: INR 1.3; Partial Thromboplastin Time 28.4 Seconds (22.3-36.8); Prothrombin Time 16.4 Seconds (11.1-14.7)
[2025-02-25 04:45] LABS: Troponin I 0.012 ng/mL (0.000-0.034)
[2025-02-25] MEDS: HYDROmorphone HCL INJ (*CRX) 1 MG/ML SYR 0.5 MG IV PUSH (05:09)
--- NOTE | 2025-02-25 05:11 | PC.NURSE ---
This RN went into pt room to give pt pain medication. This RN observed pt lying on her side playing on her phone with no tremors or shaking noted. Pt VSS initially. This RN then said I have a medication for you. Pt then placed her phone down and began shaking and hyperventilating. This RN gave pt medication and pt stopped shaking. EDP notified.
== END 2025-02-25 07:22 | disposition home or self-care (01) ==
PROVIDERS: Emergency Provider Student in an Organized Health Care Education/Training Program; PCP Internal Medicine
DX: R51.9 Headache, unspecified (principal); R25.1 Tremor, unspecified; T45.1X5A Adverse effect of antineoplastic and immunosuppressive drugs, initial encounter; I50.9 Heart failure, unspecified; E11.43 Type 2 diabetes mellitus with diabetic autonomic (poly)neuropathy; K31.84 Gastroparesis; E11.42 Type 2 diabetes mellitus with diabetic polyneuropathy; E66.01 Morbid (severe) obesity due to excess calories; Z68.43 Body mass index [BMI] 50.0-59.9, adult; M06.9 Rheumatoid arthritis, unspecified; K21.9 Gastro-esophageal reflux disease without esophagitis; K58.9 Irritable bowel syndrome, unspecified; N32.81 Overactive bladder; G47.33 Obstructive sleep apnea (adult) (pediatric); F32.A Depression, unspecified; F41.9 Anxiety disorder, unspecified; Z96.82 Presence of neurostimulator; Z96.651 Presence of right artificial knee joint; Z86.711 Personal history of pulmonary embolism; Z86.718 Personal history of other venous thrombosis and embolism; Z85.3 Personal history of malignant neoplasm of breast; Z87.442 Personal history of urinary calculi; Z90.49 Acquired absence of other specified parts of digestive tract; Z90.13 Acquired absence of bilateral breasts and nipples; Z90.721 Acquired absence of ovaries, unilateral; Z77.22 Contact with and (suspected) exposure to environmental tobacco smoke (acute) (chronic); Z79.4 Long term (current) use of insulin; Z79.899 Other long term (current) drug therapy; Z79.01 Long term (current) use of anticoagulants; Z79.631 Long term (current) use of antimetabolite agent
CPT/HCPCS: 36415; 70450; 71045; 80053; 82948; 84484; 85025; 85610; 85730; 93005; 96374; 99284; J1171

== ENCOUNTER 2025-03-27 13:07 | Emergency (ER) | payer MEDICARE, MEDICAID, SELFPAY ==
--- NOTE | ~2025-03-27 | XR_ITS ---
EXAMINATION: XR chest 1V portable COMPARISON: No comparisons available. HISTORY: ?CHF?, SOB FINDINGS: Moderate pulmonary venous congestion. No pneumothorax. Moderate cardiomegaly. Mediastinal and hilar contours are within normal limits. Bony thorax no acute abnormality. Miscellaneous: Spinal canal catheter noted. Impression: CHF. Findings appear progressed compared to the previous exam Reviewed, dictated and finalized at location P. ROAD DISPATCHER Impression: CHF. Findings appear progressed compared to the previous exam
[2025-03-27 13:14] VITALS: BP 144/77; PULSE 86; RESP 20; TEMP 36.7; O2SAT 99
--- NOTE | 2025-03-27 13:16 | ECG_ITS ---
Test Date: 2025-03-27 13:22:04 Measurements Intervals [place] Rate: 83 P: 12 WI: 112 QRS: 16 QRSD: 94 T: 59 QT: 378 QTc: 445 Interpretive Statements SINUS RHYTHM WITH SHORT WI INTERVAL WITH OCCASIONAL SUPRAVENTRICULAR PREMATURE COMPLEXES LEFT VENTRICULAR HYPERTROPHY WITH ST-T CHANGE BASELINE ARTIFACT- I, II, AVR, AVL, AVF, V1-V2 BORDERLINE ECG Compared to ECG 02/25/2025 04:20:35 Short WI interval now present Electronically Signed On 03-27-2025 13:32:11 ORTHOTIC PRACTITIONER by Jonatan Parra D.O.
[2025-03-27 14:09] LABS: Hematocrit 36.7 % (37.0-47.0); Hemoglobin 11.3 g/dL (12.0-15.0); Immature Granulocyte Percent A 0.6 % (0-0.5); Lymphocytes Absolute Auto 1.96 K/mm3 (0.9-3.2); Mean Corpuscular HGB Conc 30.8 g/dl (32-36); Mean Corpuscular Hemoglobin 28.3 pg (26-34); Mean Corpuscular Volume 91.8 fl (80-100); Nucleated Red Blood Cells Absolute Auto 0.000 K/mm3 (0.0-0.012); Nucleated Red Blood Cells Perc 0.0 % (0.0-0.2); Platelet Count Result 254 k/mm3 (150-375); Red Blood Count 4.00 M/mm3 (4.2-5.4); White Blood Count 12.4 K/mm3 (4.5-10.0)
[2025-03-27 14:25] LABS: Alanine Aminotransferase 27 U/L (6-35); Albumin Level 3.8 g/dL (3.5-5.1); Alkaline Phosphatase 64 U/L (38-126); Anion Gap 2 mmol/L (4-12); Aspartate Amino Transferase 26 U/L (14-36); Bilirubin,Total 0.7 mg/dL (0.2-1.3); Blood Urea Nitrogen 20 mg/dL (7-17); Calcium 9.7 mg/dL (8.4-10.2); Carbon Dioxide 28 mmol/L (22-30); Chloride 106 mmol/L (98-107); Estimated CRCL calculation 88 ml/min; Estimated Glomerular Filt Rate > 60; Glucose 249 mg/dL (65-110); Potassium 3.8 mmol/L (3.4-5.0); Sodium 136 mmol/L (137-145); Total Protein 7.4 g/dL (6.3-8.2)
[2025-03-27 14:33] LABS: NT Pro B Type Natriuretic Pept 125 pg/mL (19.9-100)
[2025-03-27 14:50] LABS: Add Urine Microscopic? YES; Appearance Urine Clear (Clear); Glucose Urine UA 3+ mg/dL (Negative); Leukocyte Esterase Ur Negative LEU/UL (Negative); Need Manual Microscopic Reviewed; Nitrate Urine Negative (Negative); Non Pathogenic Casts 0-2; Specific Grav Ur 1.026 (1.001-1.035)
[2025-03-27 15:22] VITALS: BP 137/79; PULSE 88; RESP 19; O2SAT 97
--- NOTE | 2025-03-27 15:22 | ED.FEMALEGU ---
HPI - Female Genitourinary General Chief complaint: Urogenital-Female Stated complaint: UTI, swollen feet/ankles, weakness Time Seen by Provider: 03/27/25 13:37 History of Present Illness HPI Narrative: Patient presenting here with increased urinary frequency, she thinks she may have another UTI. She has also felt like she was more short of breath and her feet and ankles are more swollen. Related Data Home Medications ?Medication ?Instructions ?Recorded ?Confirmed ?Last Taken ?Type exemestane 25 mg tablet 25 mg PO HS 01/06/20 11/16/24 11/15/24 History insulin glargine 100 unit/mL (3 50 unit subcut QAM 01/06/20 11/16/24 11/15/24 History mL) subcutaneous pen (Lantus Solostar U-100 Insulin) ropinirole 5 mg tablet 5 mg PO HS 01/06/20 11/16/24 11/15/24 History insulin lispro 100 unit/mL 32 unit subcut TID 03/19/22 11/16/24 11/15/24 History subcutaneous pen (Humalog KwikPen (U-100) Insulin) oxybutynin chloride 15 mg 15 mg PO DAILY 11/06/22 11/16/24 11/15/24 History tablet,extended release 24 hr gabapentin 300 mg capsule 300 mg PO TID 06/25/23 11/16/24 11/15/24 History prednisone 10 mg tablet 10 mg PO DAILY 10/08/24 11/16/24 11/15/24 History rivaroxaban 20 mg tablet (Xarelto) 20 mg PO 0900 10/08/24 11/16/24 11/15/24 History oxybutynin chloride 10 mg mg PO 02/15/25 Unknown History tablet,extended release 24 hr sulfamethoxazole 800 tablet 02/15/25 Unknown History mg-trimethoprim 160 mg tablet tamsulosin 0.4 mg capsule mg PO 02/15/25 Unknown History Allergies Allergy/AdvReac Type Severity Reaction Status Date / Time ceftriaxone Allergy Severe SOB Verified 12/29/24 02:00 cephalexin Allergy Severe Difficulty Verified 12/29/24 02:00 Breathing Cephalosporins Allergy Severe Difficulty Verified 12/29/24 02:00 Breathing lorazepam Allergy Severe Swelling Verified 12/29/24 02:00 trazodone Allergy Severe Swelling Verified 12/29/24 02:00 of Lip/Tongue/Throat metoclopramide Allergy Intermediate Other Verified 12/29/24 02:00 azithromycin Allergy Mild Itching Verified 12/29/24 02:00 chlorhexidine Allergy Mild BLISTERING Verified 12/29/24 02:00 levofloxacin Allergy Mild Hives / Verified 12/29/24 02:00 Red Face ketorolac Allergy Itching Verified 12/29/24 02:00 latex Allergy Rash Verified 12/29/24 02:00 meropenem Allergy Rash Verified 12/29/24 02:00 nitrofurantoin Allergy Itching Verified 12/29/24 02:00 piperacillin Allergy Rash Verified 12/29/24 02:00 reslizumab Allergy Hives Verified 12/29/24 02:00 trimethoprim (From Allergy Itching Verified 12/29/24 02:00 Sulfamethoxazole-Trimethoprim) sulfamethoxazole (From AdvReac Severe Anaphylaxis Verified 12/29/24 02:00 Sulfamethoxazole-Trimethoprim) clindamycin AdvReac Intermediate Nausea and Verified 12/29/24 02:00 Vomiting doxycycline AdvReac Mild Itching Verified 12/29/24 02:00 oxycodone AdvReac Mild Vomiting Verified 12/29/24 02:00 amlodipine AdvReac Swelling Verified 12/29/24 02:00 lisinopril AdvReac Swelling Verified 12/29/24 02:00 pregabalin AdvReac Swelling Verified 12/29/24 02:00 Review of Systems Review of Systems: All systems reviewed & are unremarkable except as noted in HPI and below PMFSH Past Medical History Medical History Polymyositis with myopathy Gastroparesis Obstructive sleep apnea on CPAP Restless leg syndrome Pulmonary embolism positive for coagulation workup Deep venous thrombosis Type 2 diabetes mellitus Throat pain in adult Oral ulcer Chronic anticoagulation Overactive bladder Irritable bowel syndrome Congestive heart failure Chronic back pain Collagenous colitis Morbid obesity Breast cancer Depression Anxiety Peripheral neuropathy Kidney stone Multiple thyroid nodules Surgical History Surgical History History of umbilical hernia repair History of colonoscopy Status post insertion of spinal cord stimulator History of cystoscopy History of ureter stent History of cholecystectomy History of bilateral mastectomy History of esophagogastroduodenoscopy (EGD) History of right oophorectomy History of total right knee replacement History of cardiac catheterization Reportedly negative for coronary artery disease. Family History Family History Mother Diabetes mellitus Acute myocardial infarction Congestive heart failure Hypertension Cerebrovascular accident Coronary artery disease Father Prostate carcinoma Sibling Acute myocardial infarction Breast cancer Chronic obstructive pulmonary disease Social History Social History Social History: Surrogate medical decision maker: Jimmie Marques, spouse. (Previously listed though she reports being now) Code status: Full code. Smoking packs per day: 0 Smoking cigarettes per day: 0.0 Years smoked: 2 Smoking pack-years: 0.00 Smoking status: Never smoker Second hand tobacco smoke exposure: Yes Alcohol intake: never Substance use: never Substance use type: does not use Lack of Transportation: YES Lack of Food: Never True Current Housing: I Have Housing Concerned About Future Housing: No Difficulty Paying Gas/Electric Bills: No Difficulty Paying for Meds: No Currently Unemployed: No Education: Associate Degree Difficulty w/ Childcare or Family Care: No Living arrangements: with family Additional living arrangements comments: daughter Additional occupation/education comments: Disabled. Spiritual care concerns: No Exam Narrative: EXAMINATION OF ORGAN SYSTEMS/BODY AREAS: Constitutional: Vital signs per nursing GENERAL:[No acute distress, non-toxic appearing.] HEAD: Normal with no signs of head trauma. EYES: EOMI, conjunctiva normal ENT: Hearing grossly intact LUNGS: Nonlabored breathing. Clear to auscultation bilaterally. HEART: [Regular rate and rhythm] ABD: [Soft], [nontender to palpation] EXT: Normal range of motion, no pitting edema SKIN: [No rashes or lesions.] NEURO: [Alert. No gross focal sensory or strength deficits.] PSYCH: Normal affect Course Vital Signs Vital signs: Vital Signs Temperature 98.0 F 03/27/25 13:14 Pulse Rate 86 03/27/25 13:14 Respiratory Rate 20 03/27/25 13:14 Blood Pressure 144/77 H 03/27/25 13:14 Pulse Oximetry 99 03/27/25 13:14 Oxygen Delivery Room Air 03/27/25 13:14 Temperature 98.0 F 03/27/25 13:14 Pulse Rate 86 03/27/25 13:14 Respiratory Rate 20 03/27/25 13:14 Blood Pressure 144/77 H 03/27/25 13:14 Pulse Oximetry 99 03/27/25 13:14 Oxygen Delivery Room Air 03/27/25 13:14 MDM MDM Narrative Medical decision making narrative: 69-year-old presents with increased urinary frequency, concern for or shortness of breath and lower extremity edema. On exam she is very well-appearing in no distress, I do not see any pitting edema, she is breathing comfortably with no respiratory distress, even when she is lying flat. Oxygen 99% on room air. Chest x-ray per Radiology possible CHF, on my independent interpretation I do not see any obvious pleural effusions or signs of volume overload. BNP not elevated significantly. I will give her an x-ray does Lasix here, her urine does look possible UTI there is no bacteria this is she has symptoms I will start her on Augmentin since she has tolerated this well in the past and her urine culture does appear to be susceptible. Return precautions provided she is to follow up with her PCP. Differential Diagnosis Differential Diagnosis: UTI, CHF, COPD, pneumonia Lab Data 03/27/25 14:03 03/27/25 14:03 Labs: Lab Results 03/27/25 03/27/25 Range/Units 14:03 14:30 WBC 12.4 H (4.5-10.0) K/mm3 RBC 4.00 L (4.2-5.4) M/mm3 Hgb 11.3 L (12.0-15.0) g/dL Hct 36.7 L (37.0-47.0) % MCV 91.8 (80-100) fl MCH 28.3 (26-34) pg MCHC 30.8 L (32-36) g/dl RDW 15.4 H (11.5-14.5) % Plt Count 254 (150-375) k/mm3 MPV 9.8 (7.4-10.4) fl Immature Gran % (Auto) 0.6 H (0-0.5) % Neut % (Auto) 74.2 H (45.5-73.1) % Lymph % (Auto) 15.8 L (18.3-44.2) % [place] % (Auto) 7.7 (2.6-8.5) % Eos % (Auto) 1.5 (0-4.4) % Baso % (Auto) 0.2 (0.2-1.2) % Lymph # (Auto) 1.96 (0.9-3.2) K/mm3 [place] # (Auto) 1.0 H (0.1-0.6) K/mm3 Eos # (Auto) 0.2 (0-0.3) K/mm3 Baso # (Auto) 0.0 (0.0-0.1) K/mm3 Abs Immat Gran (auto) 0.08 H (0.00-0.031) K/mm3 Absolute Neuts (auto) 9.2 H (1.3-6.7) K/mm3 Absolute Nucleated RBC 0.000 (0.0-0.012) K/mm3 Nucleated RBC % 0.0 (0.0-0.2) % Sodium 136 L (137-145) mmol/L Potassium 3.8 (3.4-5.0) mmol/L Chloride 106 (98-107) mmol/L Carbon Dioxide 28 (22-30) mmol/L Anion Gap 2 L (4-12) mmol/L BUN 20 H (7-17) mg/dL Creatinine 0.69 L (0.7-1.0) mg/dL Estim Creat Clear Calc 88 ml/min Estimated GFR > 60 (59 - ) Glucose 249 H (65-110) mg/dL Calcium 9.7 (8.4-10.2) mg/dL Total Bilirubin 0.7 (0.2-1.3) mg/dL AST 26 (14-36) U/L ALT 27 (6-35) U/L Alkaline Phosphatase 64 (38-126) U/L NT-Pro-B Natriuret Pep 125 H (19.9-100) pg/mL Total Protein 7.4 (6.3-8.2) g/dL Albumin 3.8 (3.5-5.1) g/dL Urine Color Yellow (Yellow) Urine Appearance Clear (Clear) Urine pH 5.0 (5.0-9.0) Ur Specific [place] 1.026 (1.001-1.035) Urine Protein Negative (Negative) mg/dL Urine Glucose (UA) 3+ H (Negative) mg/dL Urine Ketones Negative (Negative) mg/dL Ur Blood (Man) Trace (Negative) Urine Nitrate Negative (Negative) Urine Bilirubin Negative (Negative) Urine Urobilinogen 0.2 (<2.0) mg/dL Add Ur Microanalysis Reviewed Leukocyte Esterase Rfl Negative (Negative) PAO/UL Urine RBC 0-2 (0-2) /hpf Urine WBC 11-20 H (0-3) /hpf Urine WBC Clumps Present H (None) /HPF Ur Squamous Epith Cells None seen (Few) /hpf Urine Bacteria None seen /hpf Urine Casts 0-2 Imaging Data Radiologist's impression: ITS Impressions Chest X-Ray 03/27/25 14:00 Impression: CHF. Findings appear progressed compared to the previous exam Discharge Plan Discharge Clinical Impression: Acute UTI Patient Disposition: Home Condition: Stable Instructions: Antibiotic Form, Dysuria (ED) Additional Instructions: Take the antibiotics as prescribed. Please follow up with your doctor; you can always return for any further issues. Patient Language: Kiswahili Prescriptions: New amoxicillin-pot clavulanate 875-125 mg tablet 1 tablet PO Q12H Qty: 14 0RF No Action gabapentin 300 mg capsule 300 mg PO TID oxybutynin chloride 10 mg tablet extended release 24hr PO sulfamethoxazole-trimethoprim 800-160 mg tablet tamsulosin 0.4 mg capsule PO exemestane 25 mg tablet 25 mg PO HS ropinirole 5 mg tablet 5 mg PO HS insulin glargine [Lantus Solostar U-100 Insulin] 100 unit/mL (3 mL) insulin pen 50 unit SUBCUT QAM insulin lispro [Humalog KwikPen Insulin] 100 unit/mL insulin pen 32 unit SUBCUT TID Patient Comments: PATIENT EXPERIENCES LOW BLOOD SUGAR IN THE HOSPITAL albuterol sulfate 90 mcg/actuation HFA aerosol inhaler 1 inh inhalation QID PRN (Reason: shortness of breath or wheezing) Qty: 6.7 0RF oxybutynin chloride 15 mg tablet extended release 24hr 15 mg PO DAILY ondansetron 4 mg tablet,disintegrating 4 mg PO Q8H PRN (Reason: nausea and vomiting) Qty: 10 0RF lidocaine 5 % ointment 1 applic topical TID PRN (Reason: skin irritation) Qty: 50 0RF prednisone 10 mg tablet 10 mg PO DAILY Xarelto 20 mg tablet 20 mg PO 0900 pantoprazole [Protonix] 40 mg tablet,delayed release (DR/EC) 40 mg PO BID 30 Days Qty: 60 0RF hydrocodone-acetaminophen 10-325 mg tablet 1 tablet PO Q6H PRN (Reason: pain (scale score 7-10)) 5 Days Qty: 10 0RF furosemide [Lasix] 20 mg tablet 20 mg PO DAILY Qty: 30 0RF Follow-up/Referrals: Shahla,Justen Spicer MD [Primary Care Provider]
[2025-03-27] MEDS: FUROSEMIDE 40 MG TABLET PO (15:47)
== END 2025-03-27 16:24 | disposition home or self-care (01) ==
PROVIDERS: Emergency Provider Emergency Medicine; PCP Internal Medicine
DX: N39.0 Urinary tract infection, site not specified (principal); I50.9 Heart failure, unspecified; E11.43 Type 2 diabetes mellitus with diabetic autonomic (poly)neuropathy; K31.84 Gastroparesis; E11.42 Type 2 diabetes mellitus with diabetic polyneuropathy; E66.01 Morbid (severe) obesity due to excess calories; Z68.43 Body mass index [BMI] 50.0-59.9, adult; M06.9 Rheumatoid arthritis, unspecified; K21.9 Gastro-esophageal reflux disease without esophagitis; K58.9 Irritable bowel syndrome, unspecified; N32.81 Overactive bladder; G47.33 Obstructive sleep apnea (adult) (pediatric); F32.A Depression, unspecified; F41.9 Anxiety disorder, unspecified; Z96.82 Presence of neurostimulator; Z96.651 Presence of right artificial knee joint; Z86.711 Personal history of pulmonary embolism; Z86.718 Personal history of other venous thrombosis and embolism; Z85.3 Personal history of malignant neoplasm of breast; Z87.442 Personal history of urinary calculi; Z90.49 Acquired absence of other specified parts of digestive tract; Z90.13 Acquired absence of bilateral breasts and nipples; Z90.721 Acquired absence of ovaries, unilateral; Z77.22 Contact with and (suspected) exposure to environmental tobacco smoke (acute) (chronic); Z79.4 Long term (current) use of insulin; Z79.899 Other long term (current) drug therapy; Z79.01 Long term (current) use of anticoagulants; Z79.631 Long term (current) use of antimetabolite agent; I49.1 Atrial premature depolarization; I51.7 Cardiomegaly
CPT/HCPCS: 36415; 71045; 80053; 81001; 83880; 85025; 87077; 87086; 87186; 93005; 99283; A9270

== ENCOUNTER 2025-04-16 21:36 | Inpatient (IN) | payer MEDICARE, MEDICAID, SELFPAY ==
--- NOTE | ~2025-04-16 | CT_ITS ---
EXAMINATION: CT pelvis wo con DATE: 04/17/2025 05:06 INDICATION: Left hip pain. TECHNIQUE: Computed tomography (CT) of the pelvis was performed without intravenous contrast. Automated exposure control and iterative reconstruction technique were employed. The dose-length product was 980.60 mGy-cm. COMPARISON: CT 01/25/2025 FINDINGS: There are changes of ventral hernia repair. There are no dilated loops of bowel. There is diverticulosis of the colon without evidence of diverticulitis. There are no pathologically enlarged lymph nodes. There is no ascites. There is subcutaneous edema in anterior abdominal wall. There is an electronic device in the left posterior subcutaneous fat. Alignment is normal. No fracture. There is severe osteoarthritis of the sacroiliac joints with loose bodies. Osteitis pubis is noted. There is moderate lumbar spondylosis. There is moderate osteoarthritis of the hips. IMPRESSION: 1. Moderate osteoarthritis of the hips. 2. 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 3. Osteitis pubis. Reviewed, dictated and finalized at location E. CAP DEVELOPER
--- NOTE | ~2025-04-16 | XR_ITS ---
XR hip LT min 2V 04/17/2025 03:32 Indication: Left hip pain Procedure: 2 views left hip Comparison: Comparison to multiple prior studies sequentially, with oldest reviewed study dated 09/11/2009. Findings: There is anatomic alignment. Mild osteoarthritis of the left hip. No fracture, subluxation or dislocation. No significant soft tissue abnormality. Impression: 1: No acute bone or joint abnormality. Reviewed, dictated and finalized at location O. PANEL PADDER Impression: 1: No acute bone or joint abnormality.
--- NOTE | ~2025-04-16 | CT_ITS ---
EXAMINATION: CT lumbar spine wo con DATE: 04/17/2025 05:06 INDICATION: Low back pain radiating to the left hip. TECHNIQUE: Computed tomography (CT) of the lumbar spine was performed without intravenous contrast. Automated exposure control and iterative reconstruction technique were employed. The dose-length product was 1349.13 mGy-cm. COMPARISON: Lumbar spine CT 10/06/2024 FINDINGS: There is 6 degrees levocurvature of lumbar spine. L5 is a transitional segment. Vertebral body heights are normal. There is moderately decreased disc height at L1-L2 and mildly decreased disc height at L2-L3, L3-L4, and L4-L5. There are epidural electrodes in thoracic spine. The following disc levels are specifically discussed: L1-L2: The disc is bulging. There is severe bilateral facet joint osteoarthritis. There is mild bilateral neural foraminal stenosis. There is mild central canal stenosis. L2-L3: The disc is bulging. There is severe bilateral facet joint osteoarthritis. There is mild bilateral neural foraminal stenosis. There is mild central canal stenosis. L3-L4: The disc is bulging. There is severe bilateral facet joint osteoarthritis. There is moderate right and mild left neural foraminal stenosis. There is mild central canal stenosis. L4-L5: The disc is bulging. There is ankylosis of the facet joints with severe hypertrophy. There is mild bilateral neural foraminal stenosis. There is mild central canal stenosis. L5-S1: The disc does not extend beyond the endplate margin. There is mild bilateral facet joint hypertrophy. There is no neural foraminal stenosis. There is no central canal stenosis. IMPRESSION: 1. Moderate lumbar spondylosis, stable from 10/06/2024. Reviewed, dictated and finalized at location E. EE FARMER
[2025-04-16 21:37] VITALS: BP 138/68; PULSE 84; RESP 18; TEMP 36.9; O2SAT 96
[2025-04-17] VITALS (32 sets, daily range): BP systolic 102–161; BP diastolic 53–94; PULSE 70–110; RESP 14–24; TEMP 36.4; O2SAT 92–100; BMI 54.1
[2025-04-17] MEDS: MORPHINE SULFATE (*CRX) 4 MG/ML INJ IV PUSH (05:43)
[2025-04-17 05:48] LABS: Hematocrit 39.9 % (37.0-47.0); Hemoglobin 12.2 g/dL (12.0-15.0); Immature Granulocyte Percent A 0.5 % (0-0.5); Lymphocytes Absolute Auto 3.35 K/mm3 (0.9-3.2); Mean Corpuscular HGB Conc 30.6 g/dl (32-36); Mean Corpuscular Hemoglobin 28.0 pg (26-34); Mean Corpuscular Volume 91.7 fl (80-100); Nucleated Red Blood Cells Absolute Auto 0.000 K/mm3 (0.0-0.012); Nucleated Red Blood Cells Perc 0.0 % (0.0-0.2); Platelet Count Result 277 k/mm3 (150-375); Red Blood Count 4.35 M/mm3 (4.2-5.4); White Blood Count 11.8 K/mm3 (4.5-10.0)
[2025-04-17 05:52] LABS: Add Urine Microscopic? YES; Appearance Urine Cloudy (Clear); Glucose Urine UA Negative (Negative); Leukocyte Esterase Ur 2+ LEU/UL (Negative); Nitrate Urine Positive (Negative); Non Pathogenic Casts 0-2; Specific Grav Ur 1.020 (1.001-1.035)
[2025-04-17 06:01] LABS: Alanine Aminotransferase 26 U/L (6-35); Albumin Level 4.1 g/dL (3.5-5.1); Alkaline Phosphatase 67 U/L (38-126); Anion Gap 8 mmol/L (4-12); Aspartate Amino Transferase 26 U/L (14-36); Bilirubin,Total 0.7 mg/dL (0.2-1.3); Blood Urea Nitrogen 18 mg/dL (7-17); CRP 1.7 mg/dL (<1.0); Calcium 9.6 mg/dL (8.4-10.2); Carbon Dioxide 27 mmol/L (22-30); Chloride 105 mmol/L (98-107); Estimated CRCL calculation 83 ml/min; Estimated Glomerular Filt Rate > 60; Glucose 152 mg/dL (65-110); Magnesium 1.6 mg/dL (1.6-2.3); Potassium 4.2 mmol/L (3.4-5.0); Sodium 140 mmol/L (137-145); Total Protein 7.9 g/dL (6.3-8.2)
--- NOTE | 2025-04-17 06:05 | ED.GENADULT ---
HPI - General Adult General Chief complaint: Unspecified <Dajuan Julio MD - Last Filed: 04/17/25 06:31> Stated complaint: CHF and hip pain <Dajuan Julio MD - Last Filed: 04/17/25 06:31> Time Seen by Provider: 04/17/25 04:34 <Dajuan Julio MD - Last Filed: 04/17/25 06:31> History of Present Illness HPI narrative: Patient is a 69-year-old female who presents emergency department chief complaint of left hip pain patient reports that she has been diagnosed with congestive heart failure number reports that she has had severe pain in her left hip patient reports no specific trauma of the reports that she also has pain in the gluteal area the patient reports that she has pain that is worse whenever she attempts to put any kind of weight on it patient denies fever <Dajuan Julio MD - Last Filed: 04/17/25 06:31> Related Data Home medications: Home Medications ?Medication ?Instructions ?Recorded ?Confirmed ?Last Taken ?Type exemestane 25 mg tablet 25 mg PO HS 01/06/20 11/16/24 11/15/24 History insulin glargine 100 unit/mL (3 50 unit subcut QAM 01/06/20 11/16/24 11/15/24 History mL) subcutaneous pen (Lantus Solostar U-100 Insulin) ropinirole 5 mg tablet 5 mg PO HS 01/06/20 11/16/24 11/15/24 History insulin lispro 100 unit/mL 32 unit subcut TID 03/19/22 11/16/24 11/15/24 History subcutaneous pen (Humalog KwikPen (U-100) Insulin) oxybutynin chloride 15 mg 15 mg PO DAILY 11/06/22 11/16/24 11/15/24 History tablet,extended release 24 hr gabapentin 300 mg capsule 300 mg PO TID 06/25/23 11/16/24 11/15/24 History prednisone 10 mg tablet 10 mg PO DAILY 10/08/24 11/16/24 11/15/24 History rivaroxaban 20 mg tablet (Xarelto) 20 mg PO 0900 10/08/24 11/16/24 11/15/24 History oxybutynin chloride 10 mg mg PO 02/15/25 Unknown History tablet,extended release 24 hr sulfamethoxazole 800 tablet 02/15/25 Unknown History mg-trimethoprim 160 mg tablet tamsulosin 0.4 mg capsule mg PO 02/15/25 Unknown History <Dajuan Julio MD - Last Filed: 04/17/25 06:31> Allergies/adverse reactions: Allergies Allergy/AdvReac Type Severity Reaction Status Date / Time ceftriaxone Allergy Severe SOB Verified 12/29/24 02:00 cephalexin Allergy Severe Difficulty Verified 12/29/24 02:00 Breathing Cephalosporins Allergy Severe Difficulty Verified 12/29/24 02:00 Breathing lorazepam Allergy Severe Swelling Verified 12/29/24 02:00 trazodone Allergy Severe Swelling Verified 12/29/24 02:00 of Lip/Tongue/Throat metoclopramide Allergy Intermediate Other Verified 12/29/24 02:00 azithromycin Allergy Mild Itching Verified 12/29/24 02:00 chlorhexidine Allergy Mild BLISTERING Verified 12/29/24 02:00 levofloxacin Allergy Mild Hives / Verified 12/29/24 02:00 Red Face ketorolac Allergy Itching Verified 12/29/24 02:00 latex Allergy Rash Verified 12/29/24 02:00 meropenem Allergy Rash Verified 12/29/24 02:00 nitrofurantoin Allergy Itching Verified 12/29/24 02:00 piperacillin Allergy Rash Verified 12/29/24 02:00 reslizumab Allergy Hives Verified 12/29/24 02:00 trimethoprim (From Allergy Itching Verified 12/29/24 02:00 Sulfamethoxazole-Trimethoprim) sulfamethoxazole (From AdvReac Severe Anaphylaxis Verified 12/29/24 02:00 Sulfamethoxazole-Trimethoprim) clindamycin AdvReac Intermediate Nausea and Verified 12/29/24 02:00 Vomiting doxycycline AdvReac Mild Itching Verified 12/29/24 02:00 oxycodone AdvReac Mild Vomiting Verified 12/29/24 02:00 amlodipine AdvReac Swelling Verified 12/29/24 02:00 lisinopril AdvReac Swelling Verified 12/29/24 02:00 pregabalin AdvReac Swelling Verified 12/29/24 02:00 <Dajuan Julio MD - Last Filed: 04/17/25 06:31> Review of Systems Review of Systems: A 10 system review of systems was completed on the patient and is negative except for what is stated in the HPI. Nursing and ancillary documentation was reviewed. <Dajuan Julio MD - Last Filed: 04/17/25 06:31> [facility] Past Medical History Medical History: Medical History Polymyositis with myopathy Gastroparesis Obstructive sleep apnea on CPAP Restless leg syndrome Pulmonary embolism positive for coagulation workup Deep venous thrombosis Type 2 diabetes mellitus Throat pain in adult Oral ulcer Chronic anticoagulation Overactive bladder Irritable bowel syndrome Congestive heart failure Chronic back pain Collagenous colitis Morbid obesity Breast cancer Depression Anxiety Peripheral neuropathy Kidney stone Multiple thyroid nodules <Dajuan Julio MD - Last Filed: 04/17/25 06:31> Surgical History Surgical History: Surgical History History of umbilical hernia repair History of colonoscopy Status post insertion of spinal cord stimulator History of cystoscopy History of ureter stent History of cholecystectomy History of bilateral mastectomy History of esophagogastroduodenoscopy (EGD) History of right oophorectomy History of total right knee replacement History of cardiac catheterization Reportedly negative for coronary artery disease. <Dajuan Julio MD - Last Filed: 04/17/25 06:31> Family History Family History: Family History Mother Diabetes mellitus Acute myocardial infarction Congestive heart failure Hypertension Cerebrovascular accident Coronary artery disease Father Prostate carcinoma Sibling Acute myocardial infarction Breast cancer Chronic obstructive pulmonary disease <Dajuan Julio MD - Last Filed: 04/17/25 06:31> Social History Social History: Social History Social History: Surrogate medical decision maker: Jimmie Sykesrangel, spouse. (Previously listed though she reports being now) Code status: Full code. Smoking packs per day: 0 Smoking cigarettes per day: 0.0 Years smoked: 2 Smoking pack-years: 0.00 Smoking status: Never smoker Second hand tobacco smoke exposure: Yes Alcohol intake: never Substance use: never Substance use type: does not use Lack of Transportation: YES Lack of Food: Never True Current Housing: I Have Housing Concerned About Future Housing: No Difficulty Paying Gas/Electric Bills: No Difficulty Paying for Meds: No Currently Unemployed: No Education: Associate Degree Difficulty w/ Childcare or Family Care: No Living arrangements: with family Additional living arrangements comments: daughter Additional occupation/education comments: Disabled. Spiritual care concerns: No <Dajuan Julio MD - Last Filed: 04/17/25 06:31> Exam Narrative: GENERAL: Well-appearing, well-nourished, and in no acute distress. HEAD: Normocephalic, atraumatic. EYES: PERRLA and EOMI. ENT: Nares clear, no rhinorrhea or epistaxis. Mucous membranes moist. NECK: Supple. CHEST: Clear to auscultation. No respiratory distress. HEART: Regular rate and rhythm. No murmur heard. Normal peripheral pulses. ABDOMEN: Soft, nontender, nondistended, normal active bowel sounds. EXTREMITIES: Normal range of motion tenderness to palpation the left hip area and lumbar region. No edema. SKIN: Warm, dry, no rash. NEURO: No focal deficits. Alert and oriented x3. PSYCH: Normal mood and affect. <Dajuan Julio MD - Last Filed: 04/17/25 06:31> Course Course Emergency Course: Urinalysis with infection. Chart review shows E coli earlier it this month. Patient with multiple drug allergies. Discussed with pharmacy, started on gentamicin. <Gil Mi MD - Last Filed: 04/17/25 10:00> Vital Signs Vital signs: Vital Signs Temperature 98.4 F 04/16/25 21:37 Pulse Rate 84 04/16/25 21:37 Respiratory Rate 18 04/16/25 21:37 Blood Pressure 138/68 04/16/25 21:37 Pulse Oximetry 96 04/16/25 21:37 Oxygen Delivery Room Air 04/16/25 21:37 Temperature 98.4 F 04/16/25 21:37 Pulse Rate 85 04/17/25 05:41 Respiratory Rate 17 04/17/25 05:41 Blood Pressure 114/74 04/17/25 05:41 Pulse Oximetry 92 04/17/25 07:45 Oxygen Delivery Room Air 04/16/25 21:37 <Dajuan Julio MD - Last Filed: 04/17/25 06:31> Vital Signs Temperature 98.4 F 04/16/25 21:37 Pulse Rate 84 04/16/25 21:37 Respiratory Rate 18 04/16/25 21:37 Blood Pressure 138/68 04/16/25 21:37 Pulse Oximetry 96 04/16/25 21:37 Oxygen Delivery Room Air 04/16/25 21:37 Temperature 98.4 F 04/16/25 21:37 Pulse Rate 85 04/17/25 05:41 Respiratory Rate 17 04/17/25 05:41 Blood Pressure 114/74 04/17/25 05:41 Pulse Oximetry 92 04/17/25 07:45 Oxygen Delivery Room Air 04/16/25 21:37 <Gil Mi MD - Last Filed: 04/17/25 10:00> [facility] Differential Diagnosis Differential Diagnosis: UTI, sepsis, arthritis, hip fracture, vertebral fracture <Gil Mi MD - Last Filed: 04/17/25 10:00> Medical Records I have reviewed the following patient records and this information was taken into consideration when formulating the assessment and plan.: previous labs <Gil Mi MD - Last Filed: 04/17/25 10:00> Lab Data [facility] Lab Attestation statement: I personally reviewed the patient's lab results. <Gil Mi MD - Last Filed: 04/17/25 10:00> Result diagrams: 04/17/25 05:39 04/17/25 05:39 <Dajuan Julio MD - Last Filed: 04/17/25 06:31> Labs: Lab Results 04/17/25 Range/Units 05:39 WBC 11.8 H (4.5-10.0) K/mm3 RBC 4.35 (4.2-5.4) M/mm3 Hgb 12.2 (12.0-15.0) g/dL Hct 39.9 (37.0-47.0) % MCV 91.7 (80-100) fl MCH 28.0 (26-34) pg MCHC 30.6 L (32-36) g/dl RDW 15.2 H (11.5-14.5) % Plt Count 277 (150-375) k/mm3 MPV 9.8 (7.4-10.4) fl Immature Gran % (Auto) 0.5 (0-0.5) % Neut % (Auto) 60.1 (45.5-73.1) % Lymph % (Auto) 28.3 (18.3-44.2) % [place] % (Auto) 8.8 H (2.6-8.5) % Eos % (Auto) 1.9 (0-4.4) % Baso % (Auto) 0.4 (0.2-1.2) % Lymph # (Auto) 3.35 H (0.9-3.2) K/mm3 [place] # (Auto) 1.0 H (0.1-0.6) K/mm3 Eos # (Auto) 0.2 (0-0.3) K/mm3 Baso # (Auto) 0.1 (0.0-0.1) K/mm3 Abs Immat Gran (auto) 0.06 H (0.00-0.031) K/mm3 Absolute Neuts (auto) 7.1 H (1.3-6.7) K/mm3 Absolute Nucleated RBC 0.000 (0.0-0.012) K/mm3 Nucleated RBC % 0.0 (0.0-0.2) % ESR 40 H (0-20) mm/hr Sodium 140 (137-145) mmol/L Potassium 4.2 (3.4-5.0) mmol/L Chloride 105 (98-107) mmol/L Carbon Dioxide 27 (22-30) mmol/L Anion Gap 8 (4-12) mmol/L BUN 18 H (7-17) mg/dL Creatinine 0.71 (0.7-1.0) mg/dL Estim Creat Clear Calc 83 ml/min Estimated GFR > 60 (59 - ) Glucose 152 H (65-110) mg/dL Calcium 9.6 (8.4-10.2) mg/dL Magnesium 1.6 (1.6-2.3) mg/dL Total Bilirubin 0.7 (0.2-1.3) mg/dL AST 26 (14-36) U/L ALT 26 (6-35) U/L Alkaline Phosphatase 67 (38-126) U/L C-Reactive Protein 1.7 H (<1.0) mg/dL Total Protein 7.9 (6.3-8.2) g/dL Albumin 4.1 (3.5-5.1) g/dL Urine Color Yellow (Yellow) Urine Appearance Cloudy H (Clear) Urine pH 6.0 (5.0-9.0) Ur Specific [place] 1.020 (1.001-1.035) Urine Protein Trace (Negative) mg/dL Urine Glucose (UA) Negative (Negative) mg/dL Urine Ketones Negative (Negative) mg/dL Ur Blood (Man) Non-hemolyzed trace H (Negative) Urine Nitrate Positive H (Negative) Urine Bilirubin Negative (Negative) Urine Urobilinogen 0.2 (<2.0) mg/dL Leukocyte Esterase Rfl 2+ H (Negative) PAO/UL Urine RBC 0-2 (0-2) /hpf Urine WBC >100 H (0-3) /hpf Ur Squamous Epith Cells None seen (Few) /hpf Urine Bacteria 4+ H /hpf Urine Casts 0-2 <Dajuan Julio MD - Last Filed: 04/17/25 06:31> Lab Results 04/17/25 Range/Units 05:39 WBC 11.8 H (4.5-10.0) K/mm3 RBC 4.35 (4.2-5.4) M/mm3 Hgb 12.2 (12.0-15.0) g/dL Hct 39.9 (37.0-47.0) % MCV 91.7 (80-100) fl MCH 28.0 (26-34) pg MCHC 30.6 L (32-36) g/dl RDW 15.2 H (11.5-14.5) % Plt Count 277 (150-375) k/mm3 MPV 9.8 (7.4-10.4) fl Immature Gran % (Auto) 0.5 (0-0.5) % Neut % (Auto) 60.1 (45.5-73.1) % Lymph % (Auto) 28.3 (18.3-44.2) % [place] % (Auto) 8.8 H (2.6-8.5) % Eos % (Auto) 1.9 (0-4.4) % Baso % (Auto) 0.4 (0.2-1.2) % Lymph # (Auto) 3.35 H (0.9-3.2) K/mm3 [place] # (Auto) 1.0 H (0.1-0.6) K/mm3 Eos # (Auto) 0.2 (0-0.3) K/mm3 Baso # (Auto) 0.1 (0.0-0.1) K/mm3 Abs Immat Gran (auto) 0.06 H (0.00-0.031) K/mm3 Absolute Neuts (auto) 7.1 H (1.3-6.7) K/mm3 Absolute Nucleated RBC 0.000 (0.0-0.012) K/mm3 Nucleated RBC % 0.0 (0.0-0.2) % ESR 40 H (0-20) mm/hr Sodium 140 (137-145) mmol/L Potassium 4.2 (3.4-5.0) mmol/L Chloride 105 (98-107) mmol/L Carbon Dioxide 27 (22-30) mmol/L Anion Gap 8 (4-12) mmol/L BUN 18 H (7-17) mg/dL Creatinine 0.71 (0.7-1.0) mg/dL Estim Creat Clear Calc 83 ml/min Estimated GFR > 60 (59 - ) Glucose 152 H (65-110) mg/dL Calcium 9.6 (8.4-10.2) mg/dL Magnesium 1.6 (1.6-2.3) mg/dL Total Bilirubin 0.7 (0.2-1.3) mg/dL AST 26 (14-36) U/L ALT 26 (6-35) U/L Alkaline Phosphatase 67 (38-126) U/L C-Reactive Protein 1.7 H (<1.0) mg/dL Total Protein 7.9 (6.3-8.2) g/dL Albumin 4.1 (3.5-5.1) g/dL Urine Color Yellow (Yellow) Urine Appearance Cloudy H (Clear) Urine pH 6.0 (5.0-9.0) Ur Specific [place] 1.020 (1.001-1.035) Urine Protein Trace (Negative) mg/dL Urine Glucose (UA) Negative (Negative) mg/dL Urine Ketones Negative (Negative) mg/dL Ur Blood (Man) Non-hemolyzed trace H (Negative) Urine Nitrate Positive H (Negative) Urine Bilirubin Negative (Negative) Urine Urobilinogen 0.2 (<2.0) mg/dL Leukocyte Esterase Rfl 2+ H (Negative) PAO/UL Urine RBC 0-2 (0-2) /hpf Urine WBC >100 H (0-3) /hpf Ur Squamous Epith Cells None seen (Few) /hpf Urine Bacteria 4+ H /hpf Urine Casts 0-2 <Gil Mi MD - Last Filed: 04/17/25 10:00> Imaging Data Radiologist's impression: ITS Impressions Lumbar Spine CT 04/17/25 06:19 IMPRESSION: 1. Moderate lumbar spondylosis, stable from 10/06/2024. Pelvis CT 04/17/25 06:24 IMPRESSION: 1. Moderate osteoarthritis of the hips. 2. 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 3. Osteitis pubis. <Dajuan Julio MD - Last Filed: 04/17/25 06:31> ITS Impressions Lumbar Spine CT 04/17/25 06:19 IMPRESSION: 1. Moderate lumbar spondylosis, stable from 10/06/2024. Pelvis CT 04/17/25 06:24 IMPRESSION: 1. Moderate osteoarthritis of the hips. 2. 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 3. Osteitis pubis. <Gil Mi MD - Last Filed: 04/17/25 10:00> Discharge Plan Discharge Clinical Impression: Sacroiliitis, Acute UTI <Dajuan Julio MD - Last Filed: 04/17/25 06:31> Patient Disposition: Still a Patient <Dajuan Julio MD - Last Filed: 04/17/25 06:31> Condition: Stable <Dajuan Julio MD - Last Filed: 04/17/25 06:31> Patient Language: [place]ese <Dajuan Julio MD - Last Filed: 04/17/25 06:31> Prescriptions: No Action gabapentin 300 mg capsule 300 mg PO TID oxybutynin chloride 10 mg tablet extended release 24hr PO sulfamethoxazole-trimethoprim 800-160 mg tablet tamsulosin 0.4 mg capsule PO exemestane 25 mg tablet 25 mg PO HS ropinirole 5 mg tablet 5 mg PO HS insulin glargine [Lantus Solostar U-100 Insulin] 100 unit/mL (3 mL) insulin pen 50 unit SUBCUT QAM insulin lispro [Humalog KwikPen Insulin] 100 unit/mL insulin pen 32 unit SUBCUT TID Patient Comments: PATIENT EXPERIENCES LOW BLOOD SUGAR IN THE HOSPITAL albuterol sulfate 90 mcg/actuation HFA aerosol inhaler 1 inh inhalation QID PRN (Reason: shortness of breath or wheezing) Qty: 6.7 0RF oxybutynin chloride 15 mg tablet extended release 24hr 15 mg PO DAILY ondansetron 4 mg tablet,disintegrating 4 mg PO Q8H PRN (Reason: nausea and vomiting) Qty: 10 0RF lidocaine 5 % ointment 1 applic topical TID PRN (Reason: skin irritation) Qty: 50 0RF amoxicillin-pot clavulanate 875-125 mg tablet 1 tablet PO Q12H Qty: 14 0RF prednisone 10 mg tablet 10 mg PO DAILY Xarelto 20 mg tablet 20 mg PO 0900 pantoprazole [Protonix] 40 mg tablet,delayed release (DR/EC) 40 mg PO BID 30 Days Qty: 60 0RF hydrocodone-acetaminophen 10-325 mg tablet 1 tablet PO Q6H PRN (Reason: pain (scale score 7-10)) 5 Days Qty: 10 0RF furosemide [Lasix] 20 mg tablet 20 mg PO DAILY Qty: 30 0RF <Dajuan Julio MD - Last Filed: 04/17/25 06:31> Follow-up/Referrals: Viry,Justen Spicer MD [Primary Care Provider] <Dajuan Julio MD - Last Filed: 04/17/25 06:31>
--- NOTE | 2025-04-17 07:15 | PC.NURSE ---
Assumed care of pt
[2025-04-17] MEDS: GENTAMICIN SULFATE INJ 405 MG in DEXTROSE 5% 100 ML 100 MG IVPB (08:59)
[2025-04-17] MEDS: MORPHINE SULFATE (*CRX) 4 MG/ML INJ 2 MG IV PUSH ×6 (10:01→23:42)
--- NOTE | 2025-04-17 11:30 | WPCEDHO ---
ED Hand Off Checklist All vitals saved:y IV Site documented:y All med administrations documented:y Triage Note Triage Note Pt to ED via POV. Pt states she 04/17/25 06:09 is having left sided hip pain. Pt states she was recently diagnosed with CHF. Pt states she was wanting her legs to be looked out due to the swelling. pt states she spoke with her doctor and states she was told to come in to rule out infection in hip. Pt states the pain has gotten worse in the last 3 days. Pt is A&Ox4. Allergies ceftriaxone Allergy (Severe, Verified 12/29/24 02:00) SOB cephalexin Allergy (Severe, Verified 12/29/24 02:00) Difficulty Breathing Cephalosporins Allergy (Severe, Verified 12/29/24 02:00) Difficulty Breathing lorazepam Allergy (Severe, Verified 12/29/24 02:00) Swelling Tounge and face swelling. trazodone Allergy (Severe, Verified 12/29/24 02:00) Swelling of Lip/Tongue/Throat metoclopramide Allergy (Intermediate, Verified 12/29/24 02:00) Other ANXIETY, RESTLESS BEHAVIOR azithromycin Allergy (Mild, Verified 12/29/24 02:00) Itching chlorhexidine Allergy (Mild, Verified 12/29/24 02:00) BLISTERING levofloxacin Allergy (Mild, Verified 12/29/24 02:00) Hives / Red Face HIVES AND ITCHING/FELT HOT ketorolac Allergy (Verified 12/29/24 02:00) Itching latex Allergy (Verified 12/29/24 02:00) Rash meropenem Allergy (Verified 12/29/24 02:00) Rash nitrofurantoin Allergy (Verified 12/29/24 02:00) Itching piperacillin Allergy (Verified 12/29/24 02:00) Rash reslizumab Allergy (Verified 12/29/24 02:00) Hives trimethoprim (From Sulfamethoxazole-Trimethoprim) Allergy (Verified 12/29/24 02:00) Itching sulfamethoxazole (From Sulfamethoxazole-Trimethoprim) Adverse Reaction (Severe, Verified 12/29/24 02:00) Anaphylaxis clindamycin Adverse Reaction (Intermediate, Verified 12/29/24 02:00) Nausea and Vomiting doxycycline Adverse Reaction (Mild, Verified 12/29/24 02:00) Itching oxycodone Adverse Reaction (Mild, Verified 12/29/24 02:00) Vomiting amlodipine Adverse Reaction (Verified 12/29/24 02:00) Swelling lisinopril Adverse Reaction (Verified 12/29/24 02:00) Swelling pregabalin Adverse Reaction (Verified 12/29/24 02:00) Swelling Family History (Last Reviewed 04/17/25 @ 06:07 by Dajuan Julio MD) Mother Diabetes mellitus Acute myocardial infarction Congestive heart failure Hypertension Cerebrovascular accident Coronary artery disease Father Prostate carcinoma Sibling Acute myocardial infarction Breast cancer Chronic obstructive pulmonary disease Active Medications including assessments/comments Morphine Sulfate (Morphine Sulfate (*Crx) 4 Mg/Ml Inj) 2 mg IV PUSH Q2H PRN PRN Reason: Pain Rated 7-10 Last Admin: 04/17/25 10:01 Dose: 2 mg Documented By: ROB MONTESINOS Pain Assessment Document 04/17/25 10:01 CMM (Rec: 04/17/25 10:01 CMM [id number]) Pain Scale Pain Scale Used Numeric (1 - 10) Self Report Pain Assessment Reported Pain Level 10 Pain Score Pain Score 10: Self Report Re-Assess: JAGUAR Pain/Fever Reassessment Document 04/17/25 11:02 CMM (Rec: 04/17/25 11:02 CMM [id number]) Self Report Pain Assessment Reported Pain Level 5 Pain Score Pain Score 5: Self Report Administered/Completed Medications Discontinued Medications Gentamicin Sulfate 405 mg/ (Dextrose) 110.125 mls @ 100 mls/hr IVPB ONCE ONE Stop: 04/17/25 10:06 Last Infusion: 04/17/25 10:10 Dose: Infused Documented By: Admin: 04/17/25 08:59 Dose: 100 mls/hr Documented By: ROB Morphine Sulfate (Morphine Sulfate (*Crx) 4 Mg/Ml Inj) 4 mg IV PUSH ONCE STA Stop: 04/17/25 04:42 Last Admin: 04/17/25 05:43 Dose: 4 mg Documented By: BALJEET Ponce 04/17/25 07:15 (created 04/17/25 08:42) Nurse Note by Yesenia Davis Assumed care of pt Initialized on 04/17/25 08:42 - END OF NOTE Interventions/Assessments IV / Saline Lock, Insert Start: 04/16/25 21:37 Freq: Status: Active Protocol: Document 04/17/25 05:38 [facility] (Rec: 04/17/25 05:39 [facility] [id number]) IV Assessment Peripheral Access Right Wrist IV Catheter Access Initiated IV Insertion Date 04/17/25 IV Insertion Time 05:39 Catheter Gauge 20 IV Insertion 2 Attempts Ultrasound Used for No Placement IV Site Assessment WNL IV Care and WNL Maintenance Last Vital Signs Temperature 98.4 F 04/16/25 21:37 Pulse Rate 85 04/17/25 10:44 Respiratory Rate 20 04/17/25 10:44 Pulse Oximetry 95 04/17/25 10:44 Blood Pressure 149/90 H 04/17/25 10:44 Blood Pressure Mean 109 04/17/25 10:44 Blood Pressure Position Sitting 04/17/25 10:44 Oxygen Delivery Room Air 04/16/25 21:37 Weight 130 kg 04/17/25 06:09 Last Result - Abnormals Only WBC 11.8 K/mm3 (4.5-10.0) H 04/17/25 05:39 MCHC 30.6 g/dl (32-36) L 04/17/25 05:39 RDW 15.2 % (11.5-14.5) H 04/17/25 05:39 [place] % (Auto) 8.8 % (2.6-8.5) H 04/17/25 05:39 Lymph # (Auto) 3.35 K/mm3 (0.9-3.2) H 04/17/25 05:39 [place] # (Auto) 1.0 K/mm3 (0.1-0.6) H 04/17/25 05:39 Abs Immat Gran (auto) 0.06 K/mm3 (0.00-0.031) H 04/17/25 05:39 Absolute Neuts (auto) 7.1 K/mm3 (1.3-6.7) H 04/17/25 05:39 ESR 40 mm/hr (0-20) H 04/17/25 05:39 BUN 18 mg/dL (7-17) H 04/17/25 05:39 Glucose 152 mg/dL (65-110) H 04/17/25 05:39 C-Reactive Protein 1.7 mg/dL (<1.0) H 04/17/25 05:39 Urine Appearance Cloudy (Clear) H 04/17/25 05:39 Ur Blood (Man) Non-hemolyzed trace (Negative) H 04/17/25 05:39 Urine Nitrate Positive (Negative) H 04/17/25 05:39 Leukocyte Esterase Rfl 2+ PAO/UL (Negative) H 04/17/25 05:39 Urine WBC >100 /hpf (0-3) H 04/17/25 05:39 Urine Bacteria 4+ /hpf H 04/17/25 05:39 Most Recent Suicide Severity Rating Suicide Severity Rating NO RISK INDICATED 04/17/25 06:09
--- NOTE | 2025-04-17 11:39 | PM.IMHP2 ---
H&P: HPI History of Present Illness Date/Time: 04/17/25 11:39 Chief Complaint: Lower abdominal pain. Narrative: 69 years old female was admitted through the emergency room with complaint of having lower abdominal pain and left hip pain going on the last few days. On examination and evaluation in the ER patient was found to have UTI. Cultures were done and IV antibiotic was started. Later patient was transferred for further evaluation treatment. At present time patient lying comfortably in the bed. Patient pain is under control. No shortness of breath or chest pain. No nausea or vomiting. Review of Systems Review of Systems: All systems reviewed & are unremarkable except as noted in HPI and below (the history and physical exam) [facility] Past Medical History Medical History Polymyositis with myopathy Gastroparesis Obstructive sleep apnea on CPAP Restless leg syndrome Pulmonary embolism positive for coagulation workup Deep venous thrombosis Type 2 diabetes mellitus Throat pain in adult Oral ulcer Chronic anticoagulation Overactive bladder Irritable bowel syndrome Congestive heart failure Chronic back pain Collagenous colitis Morbid obesity Breast cancer Depression Anxiety Peripheral neuropathy Kidney stone Multiple thyroid nodules Surgical History Surgical History History of umbilical hernia repair History of colonoscopy Status post insertion of spinal cord stimulator History of cystoscopy History of ureter stent History of cholecystectomy History of bilateral mastectomy History of esophagogastroduodenoscopy (EGD) History of right oophorectomy History of total right knee replacement History of cardiac catheterization Reportedly negative for coronary artery disease. Family History Family History Mother Diabetes mellitus Acute myocardial infarction Congestive heart failure Hypertension Cerebrovascular accident Coronary artery disease Father Prostate carcinoma Sibling Acute myocardial infarction Breast cancer Chronic obstructive pulmonary disease Social History Social History Social History: Surrogate medical decision maker: Jimmie Marques, spouse. (Previously listed though she reports being now) Code status: Full code. Smoking packs per day: 0 Smoking cigarettes per day: 0.0 Years smoked: 2 Smoking pack-years: 0.00 Smoking status: Never smoker Second hand tobacco smoke exposure: Yes Alcohol intake: never Substance use: never Substance use type: does not use Lack of Transportation: YES Lack of Food: Never True Current Housing: I Have Housing Concerned About Future Housing: No Difficulty Paying Gas/Electric Bills: No Difficulty Paying for Meds: No Currently Unemployed: No Education: Associate Degree Difficulty w/ Childcare or Family Care: No Living arrangements: with family Additional living arrangements comments: daughter Additional occupation/education comments: Disabled. Spiritual care concerns: No Meds Home Medications and Allergies Home Medications ?Medication ?Instructions ?Recorded ?Confirmed ?Type exemestane 25 mg tablet 25 mg PO HS 01/06/20 11/16/24 History insulin glargine 100 unit/mL (3 50 unit subcut QAM 01/06/20 11/16/24 History mL) subcutaneous pen (Lantus Solostar U-100 Insulin) ropinirole 5 mg tablet 5 mg PO HS 01/06/20 11/16/24 History insulin lispro 100 unit/mL 32 unit subcut TID 03/19/22 11/16/24 History subcutaneous pen (Humalog KwikPen (U-100) Insulin) albuterol sulfate 90 mcg/actuation 1 inh inhalation QID PRN shortness 09/19/22 11/16/24 Rx aerosol inhaler of breath or wheezing #6.7 grams oxybutynin chloride 15 mg 15 mg PO DAILY 11/06/22 11/16/24 History tablet,extended release 24 hr gabapentin 300 mg capsule 300 mg PO TID 06/25/23 11/16/24 History ondansetron 4 mg disintegrating 4 mg PO Q8H PRN nausea and 08/14/24 11/16/24 Rx tablet vomiting #10 tabs lidocaine 5 % topical ointment 1 applic topical TID PRN skin 10/06/24 11/16/24 Rx irritation #50 grams prednisone 10 mg tablet 10 mg PO DAILY 10/08/24 11/16/24 History rivaroxaban 20 mg tablet (Xarelto) 20 mg PO 0900 10/08/24 11/16/24 History hydrocodone 10 mg-acetaminophen 1 tablet PO Q6H PRN pain (scale 10/18/24 11/16/24 Rx 325 mg tablet score 7-10) 5 days #10 tabs pantoprazole 40 mg tablet,delayed 40 mg PO BID 30 days #60 tabs 10/18/24 11/16/24 Rx release (Protonix) furosemide 20 mg tablet (Lasix) 20 mg PO DAILY #30 tabs 11/19/24 Rx oxybutynin chloride 10 mg mg PO 02/15/25 History tablet,extended release 24 hr sulfamethoxazole 800 tablet 02/15/25 History mg-trimethoprim 160 mg tablet tamsulosin 0.4 mg capsule mg PO 02/15/25 History amoxicillin 875 mg-potassium 1 tablet PO Q12H #14 tabs 03/27/25 Rx clavulanate 125 mg tablet Allergies Allergy/AdvReac Type Severity Reaction Status Date / Time ceftriaxone Allergy Severe SOB Verified 04/17/25 12:31 cephalexin Allergy Severe Difficulty Verified 04/17/25 12:31 Breathing Cephalosporins Allergy Severe Difficulty Verified 04/17/25 12:31 Breathing lorazepam Allergy Severe Swelling Verified 04/17/25 12:31 trazodone Allergy Severe Swelling Verified 04/17/25 12:31 of Lip/Tongue/Throat metoclopramide Allergy Intermediate Other Verified 04/17/25 12:31 azithromycin Allergy Mild Itching Verified 04/17/25 12:31 chlorhexidine Allergy Mild BLISTERING Verified 04/17/25 12:31 levofloxacin Allergy Mild Hives / Verified 04/17/25 12:31 Red Face ketorolac Allergy Itching Verified 04/17/25 12:31 latex Allergy Rash Verified 04/17/25 12:31 meropenem Allergy Rash Verified 04/17/25 12:31 nitrofurantoin Allergy Itching Verified 04/17/25 12:31 piperacillin Allergy Rash Verified 04/17/25 12:23 reslizumab Allergy Hives Verified 04/17/25 12:31 trimethoprim (From Allergy Itching Verified 04/17/25 12:31 Sulfamethoxazole-Trimethoprim) sulfamethoxazole (From AdvReac Severe Anaphylaxis Verified 04/17/25 12:31 Sulfamethoxazole-Trimethoprim) clindamycin AdvReac Intermediate Nausea and Verified 04/17/25 12:31 Vomiting doxycycline AdvReac Mild Itching Verified 04/17/25 12:31 oxycodone AdvReac Mild Vomiting Verified 04/17/25 12:31 amlodipine AdvReac Swelling Verified 04/17/25 12:31 lisinopril AdvReac Swelling Verified 04/17/25 12:31 pregabalin AdvReac Swelling Verified 04/17/25 12:31 Vital Signs Vital Signs - 24 hr 04/16/25 21:37 04/17/25 02:22 04/17/25 03:16 Temperature 36.9 C Pulse Rate 84 76 Respiratory Rate 18 19 Blood Pressure 138/68 129/71 Pulse Oximetry 96 99 100 Oxygen Delivery Room Air 04/17/25 03:30 04/17/25 03:45 04/17/25 03:50 Temperature Pulse Rate 78 Respiratory Rate 15 Blood Pressure 151/87 H Pulse Oximetry 99 97 100 Oxygen Delivery 04/17/25 04:00 04/17/25 04:01 04/17/25 04:17 Temperature Pulse Rate 70 70 Respiratory Rate 17 17 Blood Pressure 152/79 H Pulse Oximetry 97 99 97 Oxygen Delivery 04/17/25 04:30 04/17/25 04:31 04/17/25 04:45 Temperature Pulse Rate 70 Respiratory Rate 14 Blood Pressure 133/78 Pulse Oximetry 94 96 97 Oxygen Delivery 04/17/25 05:07 04/17/25 05:40 04/17/25 05:41 Temperature Pulse Rate 85 Respiratory Rate 17 Blood Pressure 114/74 Pulse Oximetry 99 99 99 Oxygen Delivery 04/17/25 05:45 04/17/25 06:00 04/17/25 06:55 Temperature Pulse Rate Respiratory Rate Blood Pressure Pulse Oximetry 100 96 97 Oxygen Delivery 04/17/25 07:21 04/17/25 07:31 04/17/25 07:45 Temperature Pulse Rate Respiratory Rate Blood Pressure Pulse Oximetry 93 98 92 Oxygen Delivery 04/17/25 08:48 04/17/25 08:49 04/17/25 10:09 Temperature Pulse Rate Respiratory Rate Blood Pressure 161/94 H Pulse Oximetry 97 96 99 Oxygen Delivery 04/17/25 10:10 04/17/25 10:11 04/17/25 10:44 Temperature Pulse Rate 83 85 Respiratory Rate 20 20 Blood Pressure 126/77 126/77 149/90 H Pulse Oximetry 99 99 95 Oxygen Delivery Exam Narrative: GENERAL: Well-appearing, well-nourished, and in no acute distress. HEAD: Normocephalic, atraumatic. EYES: PERRLA and EOMI. ENT: Nares clear, no rhinorrhea or epistaxis. Mucous membranes moist. NECK: Supple. CHEST: Clear to auscultation. No respiratory distress. HEART: Regular rate and rhythm. No murmur heard. Normal peripheral pulses. ABDOMEN: Soft, nontender, nondistended, normal active bowel sounds. EXTREMITIES: Normal range of motion tenderness to palpation the left hip area and lumbar region. No edema. SKIN: Warm, dry, no rash. NEURO: No focal deficits. Alert and oriented x3. PSYCH: Normal mood and affect. Results Labs Labs: Short CBC 04/17/25 Range/Units 05:39 WBC 11.8 H (4.5-10.0) K/mm3 Hgb 12.2 (12.0-15.0) g/dL Hct 39.9 (37.0-47.0) % Plt Count 277 (150-375) k/mm3 BMP 04/17/25 05:39 Sodium 140 Potassium 4.2 Chloride 105 Carbon Dioxide 27 BUN 18 H Creatinine 0.71 Glucose 152 H Calcium 9.6 Liver Function 04/17/25 Range/Units 05:39 Total Bilirubin 0.7 (0.2-1.3) mg/dL AST 26 (14-36) U/L ALT 26 (6-35) U/L Alkaline Phosphatase 67 (38-126) U/L Albumin 4.1 (3.5-5.1) g/dL Urine 04/17/25 Range/Units 05:39 Urine Color Yellow (Yellow) Urine Appearance Cloudy H (Clear) Urine pH 6.0 (5.0-9.0) Ur Specific [place] 1.020 (1.001-1.035) Urine Protein Trace (Negative) mg/dL Urine Glucose (UA) Negative (Negative) mg/dL Assessment and Plan Assessment and plan (1) Acute UTI: Code(s): N39.0 - Urinary tract infection, site not specified Status: Acute Assessment and Plan: Urine culture and IV antibiotic. (2) Essential hypertension: Code(s): I10 - Essential (primary) hypertension Status: Acute Assessment and Plan: Stable on current medications, will continue current treatment. (3) Insulin dependent diabetes mellitus: Status: Acute Assessment and Plan: Stable on current medication, will continue current treatment. (4) Chronic anticoagulation: Code(s): Z79.01 - long term care phlebotomist (current) use of anticoagulants Status: Acute Assessment and Plan: Continue current treatment monitor closely. (5) Osteoarthritis: Code(s): M19.90 - Unspecified osteoarthritis, unspecified site Status: Inactive Assessment and Plan: Continue pain medications. Start physical therapy stable. Plan Patient is admitted the full admission med surgical floor. DVT prophylaxis Xarelto Code status full.
--- NOTE | 2025-04-17 12:08 | ADMGEN ---
This patient, Karly Marques, was admitted to Medical Room 254-01. Patient/family oriented to hospital policies and general routines including ID bracelet, bed and alarms, visiting hours, pain management, procedures, bathroom and other care routines, personal items, smoking policy, room service/diet, and visiting hours. Information on how to activate the Rapid Response Team has been discussed. Patient/Family are encouraged to report perceived risks to care and to ask questions if they do not understand what they are told or what they should do.
[2025-04-17] MEDS: HYDROcodone/acetaminophen (*CRX) 5-325 MG TABLET 1 TAB PO ×2 (15:15→22:56)
[2025-04-17] MEDS: RIVAROXABAN 20 MG TABLET PO (16:41)
[2025-04-18] VITALS (8 sets, daily range): BP systolic 119–158; BP diastolic 58–83; PULSE 64–81; RESP 18–20; TEMP 36.3–36.9; O2SAT 96–99
[2025-04-18] MEDS: HYDROcodone/acetaminophen (*CRX) 5-325 MG TABLET 1 TAB PO ×4 (02:37→23:15)
[2025-04-18 05:12] LABS: Estimated CRCL calculation 79 ml/min; Estimated Glomerular Filt Rate > 60
[2025-04-18] MEDS: MORPHINE SULFATE (*CRX) 4 MG/ML INJ 2 MG IV PUSH ×3 (05:43→20:14)
[2025-04-18] MEDS: INSULIN GLARGINE (*BKC) 100 UNITS/ML 32 UNITS SUB-Q (07:58)
[2025-04-18] MEDS: INSULIN ASPART (*BKC) 100 UNITS/ML 23 UNITS SUB-Q ×2 (07:58→16:44)
[2025-04-18] MEDS: FUROSEMIDE 20 MG TABLET PO (08:22)
[2025-04-18] MEDS: GENTAMICIN SULFATE INJ 405 MG in DEXTROSE 5% 100 ML 100 MG IVPB (08:44)
--- NOTE | 2025-04-18 14:52 | PM.IMPN2 ---
Assessment and Plan Assessment and Plan (1) Acute UTI: Code(s): N39.0 - Urinary tract infection, site not specified Status: Acute Assessment and Plan: Urine culture and IV gentamicin due to multiple drug allergies (2) Essential hypertension: Code(s): I10 - Essential (primary) hypertension Status: Acute Assessment and Plan: Stable on current medications, will continue current treatment. (3) Insulin dependent diabetes mellitus: Status: Acute Assessment and Plan: Stable on current medication, will continue current treatment. (4) Chronic anticoagulation: Code(s): Z79.01 - half-way (current) use of anticoagulants Status: Acute Assessment and Plan: Continue current treatment monitor closely. (5) Osteoarthritis: Code(s): M19.90 - Unspecified osteoarthritis, unspecified site Status: Inactive Assessment and Plan: Continue pain medications. Start physical therapy stable. Plan Patient is admitted the full admission med surgical floor. DVT prophylaxis Xarelto Code status full. Subjective Date/time seen: 04/18/25 14:52 Interval history: Reports left lower abdomen/hip pain no other complaints. Labs reviewed. Review of Systems Review of Systems: All systems reviewed & are unremarkable except as noted in HPI and below Exam Narrative: GENERAL: Well-appearing, well-nourished, and in no acute distress. HEAD: Normocephalic, atraumatic. EYES: PERRLA and EOMI. ENT: Nares clear, no rhinorrhea or epistaxis. Mucous membranes moist. NECK: Supple. CHEST: Clear to auscultation. No respiratory distress. HEART: Regular rate and rhythm. No murmur heard. Normal peripheral pulses. ABDOMEN: Soft, left lower quadrant tenderness, nondistended, normal active bowel sounds. EXTREMITIES: Normal range of motion tenderness to palpation the left hip area and lumbar region. No edema. SKIN: Warm, dry, no rash. NEURO: No focal deficits. Alert and oriented x3. PSYCH: Normal mood and affect. Objective Data Vital Signs Vital Signs: Vital Signs - 24 hr 04/17/25 17:18 04/17/25 19:54 04/17/25 20:00 Temperature 97.5 F L Pulse Rate 76 76 Respiratory Rate 20 20 Blood Pressure 102/53 L Pulse Oximetry 98 98 Oxygen Delivery Room Air Room Air 04/17/25 20:02 04/18/25 02:30 04/18/25 03:56 Temperature 97.6 F Pulse Rate 69 64 Respiratory Rate 20 Blood Pressure 119/58 L Pulse Oximetry 97 99 99 Oxygen Delivery Room Air CPAP 04/18/25 08:44 04/18/25 14:00 Temperature 97.3 F L Pulse Rate 71 Respiratory Rate 20 18 Blood Pressure 144/82 H Pulse Oximetry 99 96 Oxygen Delivery Room Air Intake/Output Intake/Output: Intake & Output 04/15/25 04/16/25 04/17/25 04/18/25 23:59 23:59 23:59 23:59 Intake Total 1140.125 720 Output Total 800 400 Balance 340.125 320 Meds/Results Medications: Active Medications Generic Name Dose Route Start Last Admin Trade Name Freq PRN Reason Stop Dose Admin Acetaminophen 650 mg 04/17/25 09:53 Acetaminophen 325 Mg Tablet PO Q4H PRN Mild Pain (1-3) or Fever Hydrocodone Bitart/Acetaminophen 1 tab 04/17/25 09:53 04/18/25 09:34 Hydrocodone/Acetaminophen (*Crx) 5-325 Mg Tablet PO 1 tab Q4H PRN Administration Pain Rated 4-6 Dextrose 12.5 gm 04/17/25 22:50 Dextrose 50% 25 Gm/50 Ml Syringe IV PUSH PRN PRN Hypoglycemia Protocol Furosemide 20 mg 04/18/25 09:00 04/18/25 08:22 Furosemide 20 Mg Tablet PO 20 mg DAILY RODERICK Administration Glucagon 1 mg 04/17/25 22:50 Glucagon For Inj 1 Mg Vial IM PRN PRN Hypoglycemia Protocol Glucose 15 gm 04/17/25 22:50 Glucose Oral Gel 15 Gm Of Glucse In 37.5 Gm Tube PO PRN PRN Hypoglycemia Protocol Gentamicin Sulfate 405 mg/ 110.125 mls @ 100 mls/hr 04/18/25 09:00 04/18/25 08:44 Dextrose IVPB 100 mls/hr Q24H RODERICK Administration Dextrose 1,000 mls @ 100 mls/hr 04/17/25 22:50 Dextrose 5% 1,000 Ml IVPB PRN PRN Hypoglycemia Protocol Insulin Aspart 4 - 8 units 04/18/25 08:00 04/18/25 11:44 Insulin Aspart (*Bkc) 100 Units/Ml SUB-Q Not Given TIDWM RODERICK Protocol Insulin Aspart 23 units 04/18/25 08:00 04/18/25 11:44 Insulin Aspart (*Bkc) 100 Units/Ml SUB-Q Not Given TIDWM [facility] Insulin Glargine 32 units 04/18/25 09:00 04/18/25 07:58 Insulin Glargine (*Bkc) 100 Units/Ml SUB-Q 32 units QAM RODERICK Administration Morphine Sulfate 2 mg 04/17/25 09:53 04/18/25 11:39 Morphine Sulfate (*Crx) 4 Mg/Ml Inj IV PUSH 2 mg Q2H PRN Administration Pain Rated 7-10 Ondansetron HCl 4 mg 04/17/25 09:53 Ondansetron Inj 4 Mg/2 Ml Vial IV PUSH Q4H PRN Nausea Rivaroxaban 20 mg 04/17/25 17:00 04/17/25 16:41 Rivaroxaban 20 Mg Tablet PO 20 mg DAILY@1700 [facility] Administration Ropinirole HCl 5 mg 04/17/25 22:50 04/17/25 22:56 Ropinirole Hcl 1 Mg Tablet PO 5 mg HS RODERICK Administration Radiology Results: ITS Impressions Lumbar Spine CT 04/17/25 06:19 IMPRESSION: 1. Moderate lumbar spondylosis, stable from 10/06/2024. Pelvis CT 04/17/25 06:24 IMPRESSION: 1. Moderate osteoarthritis of the hips. 2. 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 3. Osteitis pubis. Hip X-Ray 04/17/25 10:01 Impression: 1: No acute bone or joint abnormality. Labs Labs: Laboratory Results - last 24 hr 04/17/25 04/18/25 04/18/25 19:13 04:29 07:30 Creatinine 0.75 Estim Creat Clear Calc 79 Estimated GFR > 60 POC Capillary Glucose 200 H Random Gentamicin 2.4 L 04/18/25 11:33 Creatinine Estim Creat Clear Calc Estimated GFR POC Capillary Glucose 129 H Random Gentamicin
[2025-04-18] MEDS: RIVAROXABAN 20 MG TABLET PO (16:45)
[2025-04-19] VITALS (7 sets, daily range): BP systolic 116–155; BP diastolic 55–87; PULSE 67–87; RESP 14–20; TEMP 36.3–36.6; O2SAT 96–98
[2025-04-19] MEDS: HYDROcodone/acetaminophen (*CRX) 5-325 MG TABLET 1 TAB PO ×3 (03:05→21:43)
[2025-04-19 05:36] LABS: Hematocrit 39.3 % (37.0-47.0); Hemoglobin 12.0 g/dL (12.0-15.0); Immature Granulocyte Percent A 0.5 % (0-0.5); Lymphocytes Absolute Auto 2.18 K/mm3 (0.9-3.2); Mean Corpuscular HGB Conc 30.5 g/dl (32-36); Mean Corpuscular Hemoglobin 27.8 pg (26-34); Mean Corpuscular Volume 91.0 fl (80-100); Nucleated Red Blood Cells Absolute Auto 0.000 K/mm3 (0.0-0.012); Nucleated Red Blood Cells Perc 0.0 % (0.0-0.2); Platelet Count Result 254 k/mm3 (150-375); Red Blood Count 4.32 M/mm3 (4.2-5.4); White Blood Count 10.0 K/mm3 (4.5-10.0)
[2025-04-19] MEDS: MORPHINE SULFATE (*CRX) 4 MG/ML INJ 2 MG IV PUSH ×2 (06:02→15:46)
[2025-04-19 06:04] LABS: Alanine Aminotransferase 22 U/L (6-35); Albumin Level 3.5 g/dL (3.5-5.1); Alkaline Phosphatase 73 U/L (38-126); Anion Gap 3 mmol/L (4-12); Aspartate Amino Transferase 27 U/L (14-36); Bilirubin,Total 0.7 mg/dL (0.2-1.3); Blood Urea Nitrogen 15 mg/dL (7-17); Calcium 9.3 mg/dL (8.4-10.2); Carbon Dioxide 29 mmol/L (22-30); Chloride 102 mmol/L (98-107); Estimated CRCL calculation 82 ml/min; Estimated Glomerular Filt Rate > 60; Glucose 178 mg/dL (65-110); Magnesium 1.5 mg/dL (1.6-2.3); Potassium 4.0 mmol/L (3.4-5.0); Sodium 134 mmol/L (137-145); Total Protein 7.1 g/dL (6.3-8.2)
[2025-04-19] MEDS: INSULIN ASPART (*BKC) 100 UNITS/ML 23 UNITS SUB-Q ×2 (08:31→12:17)
[2025-04-19] MEDS: FUROSEMIDE 20 MG TABLET PO (08:31)
[2025-04-19] MEDS: INSULIN GLARGINE (*BKC) 100 UNITS/ML 32 UNITS SUB-Q (08:31)
[2025-04-19] MEDS: GENTAMICIN SULFATE INJ 405 MG in DEXTROSE 5% 100 ML 100 MG IVPB (08:35)
[2025-04-19] MEDS: MAGNESIUM SULF 2 GM/WATER 50ML 2 GM/50 ML BAG IVPB (11:20)
[2025-04-19] MEDS: INSULIN ASPART (*BKC) 100 UNITS/ML SUB-Q (12:18)
[2025-04-19] MEDS: GABAPENTIN 300 MG CAPSULE PO ×2 (13:52→17:14)
[2025-04-19] MEDS: diphenhydrAMINE HCl CAP 25 MG CAPSULE PO ×2 (13:52→21:43)
--- NOTE | 2025-04-19 15:09 | P.PNIM_ITS ---
Assessment and Plan Assessment and Plan (1) Acute UTI: Code(s): N39.0 - Urinary tract infection, site not specified Status: Acute Assessment and Plan: Urine culture and IV gentamicin due to multiple drug allergies Became short of breath and HE with gentamicin. Will stop that Discussed other option will start aztreonam She had tolerated this in the past (2) Essential hypertension: Code(s): I10 - Essential (primary) hypertension Status: Acute Assessment and Plan: Stable on current medications, will continue current treatment. (3) Insulin dependent diabetes mellitus: Status: Acute Assessment and Plan: Stable on current medication, will continue current treatment. (4) Chronic anticoagulation: Code(s): Z79.01 - [facility] (current) use of anticoagulants Status: Acute Assessment and Plan: Continue current treatment monitor closely. (5) Osteoarthritis: Code(s): M19.90 - Unspecified osteoarthritis, unspecified site Status: Inactive Assessment and Plan: Continue pain medications. Start physical therapy stable. Plan Patient is admitted the full admission med surgical floor. DVT prophylaxis Xarelto Code status full. Subjective Date/time seen: 04/19/25 15:09 Interval history: Patient felt short of breath with gentamicin infusion with some itching. Improved with Benadryl. Urine culture reviewed. Discussed with pharmacist Review of Systems Review of Systems: All systems reviewed & are unremarkable except as noted in HPI and below Exam Narrative: GENERAL: Well-appearing, well-nourished, and in no acute distress. HEAD: Normocephalic, atraumatic. EYES: PERRLA and EOMI. ENT: Nares clear, no rhinorrhea or epistaxis. Mucous membranes moist. NECK: Supple. CHEST: Clear to auscultation. No respiratory distress. HEART: Regular rate and rhythm. No murmur heard. Normal peripheral pulses. ABDOMEN: Soft, left lower quadrant tenderness, nondistended, normal active bowel sounds. EXTREMITIES: Normal range of motion tenderness to palpation the left hip area and lumbar region. No edema. SKIN: Warm, dry, no rash. NEURO: No focal deficits. Alert and oriented x3. PSYCH: Normal mood and affect. Objective Data Vital Signs Vital Signs: Vital Signs - 24 hr 04/18/25 19:37 04/18/25 20:00 04/18/25 22:00 Temperature 98.4 F Pulse Rate 81 Respiratory Rate 18 Blood Pressure 158/83 H Pulse Oximetry 98 97 Oxygen Delivery Room Air Room Air 04/18/25 23:30 04/18/25 23:32 04/19/25 05:00 Temperature 98 F Pulse Rate 81 67 Respiratory Rate 18 18 Blood Pressure 155/87 H Pulse Oximetry 97 97 97 Oxygen Delivery Autopap CPAP 04/19/25 08:30 04/19/25 09:00 04/19/25 10:00 Temperature 97.6 F Pulse Rate 80 82 Respiratory Rate 14 Blood Pressure 148/80 H 131/56 L Pulse Oximetry 96 96 98 Oxygen Delivery Room Air 04/19/25 14:00 Temperature 97.7 F Pulse Rate 87 Respiratory Rate 16 Blood Pressure 146/74 H Pulse Oximetry 96 Oxygen Delivery Intake/Output Intake/Output: Intake & Output 04/16/25 04/17/25 04/18/25 04/19/25 23:59 23:59 23:59 23:59 Intake Total 2190.178 3794.125 473 Output Total 800 3350 150 Balance 340.125 -1919.875 323 Meds/Results Medications: Active Medications Generic Name Dose Route Start Last Admin Trade Name Freq PRN Reason Stop Dose Admin Acetaminophen 650 mg 04/17/25 09:53 Acetaminophen 325 Mg Tablet PO Q4H PRN Mild Pain (1-3) or Fever Hydrocodone Bitart/Acetaminophen 1 tab 04/17/25 09:53 04/19/25 11:33 Hydrocodone/Acetaminophen (*Crx) 5-325 Mg Tablet PO 1 tab Q4H PRN Administration Pain Rated 4-6 Albuterol 1 puff 04/19/25 12:53 Albuterol Sulfate (*Sp) Aerosol 1 Puff INHALATION QID PRN Shortness Of Breath Or Wheezing Dextrose 12.5 gm 04/17/25 22:50 Dextrose 50% 25 Gm/50 Ml Syringe IV PUSH PRN PRN Hypoglycemia Protocol Diphenhydramine HCl 25 mg 04/19/25 13:30 04/19/25 13:52 Diphenhydramine Hcl Cap 25 Mg Capsule PO 25 mg Q8H RODERICK Administration Furosemide 20 mg 04/18/25 09:00 04/19/25 08:31 Furosemide 20 Mg Tablet PO 20 mg DAILY RODERICK Administration Gabapentin 300 mg 04/19/25 13:00 04/19/25 13:52 Gabapentin 300 Mg Capsule PO 300 mg TID RODERICK Administration Glucagon 1 mg 04/17/25 22:50 Glucagon For Inj 1 Mg Vial IM PRN PRN Hypoglycemia Protocol Glucose 15 gm 04/17/25 22:50 Glucose Oral Gel 15 Gm Of Glucse In 37.5 Gm Tube PO PRN PRN Hypoglycemia Protocol Gentamicin Sulfate 405 mg/ 110.125 mls @ 100 mls/hr 04/18/25 09:00 04/19/25 08:35 Dextrose IVPB 100 mls/hr Q24H RODERICK Administration Dextrose 1,000 mls @ 100 mls/hr 04/17/25 22:50 Dextrose 5% 1,000 Ml IVPB PRN PRN Hypoglycemia Protocol Aztreonam 1 gm/ Sodium 50 mls @ 100 mls/hr 04/19/25 14:00 Chloride IVPB Q8HR RODERICK Insulin Aspart 4 - 8 units 04/18/25 08:00 04/19/25 12:18 Insulin Aspart (*Bkc) 100 Units/Ml SUB-Q 4 units TIDWM RODERICK Administration Protocol Insulin Aspart 23 units 04/18/25 08:00 04/19/25 12:17 Insulin Aspart (*Bkc) 100 Units/Ml SUB-Q 23 units TIDWM RODERICK Administration Insulin Glargine 32 units 04/18/25 09:00 04/19/25 08:31 Insulin Glargine (*Bkc) 100 Units/Ml SUB-Q 32 units QAM RODERICK Administration Miscellaneous Information 1 each 04/19/25 00:01 Exemestane Nonformulary. Can Patient Use From Home Or Hold Till Discharge? XX 05/19/25 00:00 [facility] Miscellaneous Information 1 each 04/19/25 00:01 Lidocaine Ointment Nonformulary. Can Patient Use From Home Or Hold Till Discharge? XX 05/19/25 00:00 [facility] Morphine Sulfate 2 mg 04/17/25 09:53 04/19/25 06:02 Morphine Sulfate (*Crx) 4 Mg/Ml Inj IV PUSH 2 mg Q2H PRN Administration Pain Rated 7-10 Non-Formulary Medication 25 mg 04/19/25 21:00 Exemestane PO 05/19/25 20:59 HS RODERICK Non-Formulary Medication 1 applic 04/19/25 12:53 Lidocaine TOPICAL TID PRN skin irritation Ondansetron HCl 4 mg 04/17/25 09:53 Ondansetron Inj 4 Mg/2 Ml Vial IV PUSH Q4H PRN Nausea Ondansetron HCl 4 mg 04/19/25 12:53 Ondansetron Hcl Odt 4 Mg Tablet PO Q8H PRN Nausea And Vomiting Oxybutynin Chloride 15 mg 04/20/25 09:00 Oxybutynin Chloride Xl 5 Mg Tab.Er.24 PO DAILY [facility] Prednisone 12.5 mg 04/20/25 09:00 Prednisone 2.5 Mg Tablet PO DAILY [facility] Rivaroxaban 20 mg 04/17/25 17:00 04/18/25 16:45 Rivaroxaban 20 Mg Tablet PO 20 mg DAILY@1700 RODERICK Administration Ropinirole HCl 5 mg 04/17/25 22:50 04/18/25 20:16 Ropinirole Hcl 1 Mg Tablet PO 5 mg HS RODERICK Administration Radiology Results: ITS Impressions Lumbar Spine CT 04/17/25 06:19 IMPRESSION: 1. Moderate lumbar spondylosis, stable from 10/06/2024. Pelvis CT 04/17/25 06:24 IMPRESSION: 1. Moderate osteoarthritis of the hips. 2. 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 3. Osteitis pubis. Hip X-Ray 04/17/25 10:01 Impression: 1: No acute bone or joint abnormality. Labs Labs: Laboratory Results - last 24 hr 04/18/25 04/18/25 04/19/25 16:26 20:05 05:19 WBC 10.0 RBC 4.32 Hgb 12.0 Hct 39.3 MCV 91.0 MCH 27.8 MCHC 30.5 L RDW 14.8 H Plt Count 254 MPV 9.5 Immature Gran % (Auto) 0.5 Neut % (Auto) 65.9 Lymph % (Auto) 21.7 [place] % (Auto) 8.4 Eos % (Auto) 3.0 Baso % (Auto) 0.5 Lymph # (Auto) 2.18 [place] # (Auto) 0.8 H Eos # (Auto) 0.3 Baso # (Auto) 0.1 Abs Immat Gran (auto) 0.05 H Absolute Neuts (auto) 6.6 Absolute Nucleated RBC 0.000 Nucleated RBC % 0.0 Sodium 134 L Potassium 4.0 Chloride 102 Carbon Dioxide 29 Anion Gap 3 L BUN 15 Creatinine 0.72 Estim Creat Clear Calc 82 Estimated GFR > 60 Glucose 178 H POC Capillary Glucose 190 H 218 H Calcium 9.3 Magnesium 1.5 L Total Bilirubin 0.7 AST 27 ALT 22 Alkaline Phosphatase 73 Total Protein 7.1 Albumin 3.5 04/19/25 04/19/25 08:01 11:33 WBC RBC Hgb Hct MCV MCH MCHC RDW Plt Count MPV Immature Gran % (Auto) Neut % (Auto) Lymph % (Auto) [place] % (Auto) Eos % (Auto) Baso % (Auto) Lymph # (Auto) [place] # (Auto) Eos # (Auto) Baso # (Auto) Abs Immat Gran (auto) Absolute Neuts (auto) Absolute Nucleated RBC Nucleated RBC % Sodium Potassium Chloride Carbon Dioxide Anion Gap BUN Creatinine Estim Creat Clear Calc Estimated GFR Glucose POC Capillary Glucose 176 H 238 H Calcium Magnesium Total Bilirubin AST ALT Alkaline Phosphatase Total Protein Albumin
[2025-04-19] MEDS: AZTREONAM 1 GM in SODIUM CHLORIDE 0.9% IV 50 ML IVPB ×2 (15:25→21:43)
[2025-04-19] MEDS: RIVAROXABAN 20 MG TABLET PO (17:14)
[2025-04-20] VITALS (7 sets, daily range): BP systolic 128–153; BP diastolic 60–68; PULSE 71–88; RESP 12–20; TEMP 36.4–37.1; O2SAT 94–97
[2025-04-20] MEDS: HYDROcodone/acetaminophen (*CRX) 5-325 MG TABLET 1 TAB PO ×4 (01:39→20:26)
[2025-04-20] MEDS: MORPHINE SULFATE (*CRX) 4 MG/ML INJ 2 MG IV PUSH ×3 (04:58→18:15)
[2025-04-20] MEDS: diphenhydrAMINE HCl CAP 25 MG CAPSULE PO ×3 (04:59→20:26)
[2025-04-20] MEDS: AZTREONAM 1 GM in SODIUM CHLORIDE 0.9% IV 50 ML IVPB (05:00)
[2025-04-20 05:20] LABS: Hematocrit 39.6 % (37.0-47.0); Hemoglobin 12.2 g/dL (12.0-15.0); Immature Granulocyte Percent A 0.3 % (0-0.5); Lymphocytes Absolute Auto 2.04 K/mm3 (0.9-3.2); Mean Corpuscular HGB Conc 30.8 g/dl (32-36); Mean Corpuscular Hemoglobin 27.5 pg (26-34); Mean Corpuscular Volume 89.4 fl (80-100); Nucleated Red Blood Cells Absolute Auto 0.000 K/mm3 (0.0-0.012); Nucleated Red Blood Cells Perc 0.0 % (0.0-0.2); Platelet Count Result 266 k/mm3 (150-375); Red Blood Count 4.43 M/mm3 (4.2-5.4); White Blood Count 8.9 K/mm3 (4.5-10.0)
[2025-04-20 05:39] LABS: Alanine Aminotransferase 25 U/L (6-35); Albumin Level 3.7 g/dL (3.5-5.1); Alkaline Phosphatase 73 U/L (38-126); Anion Gap 3 mmol/L (4-12); Aspartate Amino Transferase 28 U/L (14-36); Bilirubin,Total 0.7 mg/dL (0.2-1.3); Blood Urea Nitrogen 16 mg/dL (7-17); Calcium 9.4 mg/dL (8.4-10.2); Carbon Dioxide 30 mmol/L (22-30); Chloride 103 mmol/L (98-107); Estimated CRCL calculation 81 ml/min; Estimated Glomerular Filt Rate > 60; Glucose 205 mg/dL (65-110); Magnesium 1.7 mg/dL (1.6-2.3); Potassium 4.0 mmol/L (3.4-5.0); Sodium 136 mmol/L (137-145); Total Protein 7.2 g/dL (6.3-8.2)
[2025-04-20] MEDS: INSULIN ASPART (*BKC) 100 UNITS/ML 23 UNITS SUB-Q ×3 (08:23→17:31)
[2025-04-20] MEDS: INSULIN GLARGINE (*BKC) 100 UNITS/ML 32 UNITS SUB-Q (08:27)
[2025-04-20] MEDS: FUROSEMIDE 20 MG TABLET PO (08:28)
[2025-04-20] MEDS: oxyBUTYnin CHLORIDE XL 5 MG TAB.ER.24 15 MG PO (08:29)
[2025-04-20] MEDS: GABAPENTIN 300 MG CAPSULE PO ×3 (08:29→17:36)
--- NOTE | 2025-04-20 09:53 | PM.IMPN2 ---
Assessment and Plan Assessment and Plan (1) Acute UTI: Code(s): N39.0 - Urinary tract infection, site not specified Status: Acute Assessment and Plan: Urine culture and IV gentamicin due to multiple drug allergies Became short of breath and HE with gentamicin. Will stop that Discussed other option started on aztreonam which she is tolerating well. She had tolerated this in the past Urine culture comes back with E coli. Only oral option as levofloxacin. Will switch to oral levofloxacin monitoring any side effects. (2) Essential hypertension: Code(s): I10 - Essential (primary) hypertension Status: Acute Assessment and Plan: Stable on current medications, will continue current treatment. (3) Insulin dependent diabetes mellitus: Status: Acute Assessment and Plan: Stable on current medication, will continue current treatment. 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 (5) Osteoarthritis: Code(s): M19.90 - Unspecified osteoarthritis, unspecified site Status: Inactive Assessment and Plan: Continue pain medications. Start physical therapy stable. Plan Perineal rash will treat with nystatin. DVT prophylaxis Xarelto Code status full. Subjective Date/time seen: 04/20/25 09:53 Interval history: No overnight events. Tolerating IV antibiotics. Has some rash which is itchy in her groin area. No shortness of breath or chest pain. Still complains of pain in her left hip. Review of Systems Review of Systems: All systems reviewed & are unremarkable except as noted in HPI and below Exam Narrative: GENERAL: Well-appearing, well-nourished, and in no acute distress. HEAD: Normocephalic, atraumatic. EYES: PERRLA and EOMI. ENT: Nares clear, no rhinorrhea or epistaxis. Mucous membranes moist. NECK: Supple. CHEST: Clear to auscultation. No respiratory distress. HEART: Regular rate and rhythm. No murmur heard. Normal peripheral pulses. ABDOMEN: Soft, Nontender, nondistended, normal active bowel sounds. EXTREMITIES: Normal range of motion tenderness to palpation the left hip area and lumbar region. No edema. SKIN: Warm, dry, no rash. NEURO: No focal deficits. Alert and oriented x3. PSYCH: Normal mood and affect. Objective Data Vital Signs Vital Signs: Vital Signs - 24 hr 04/19/25 10:00 04/19/25 14:00 04/19/25 17:16 Temperature 97.6 F 97.7 F Pulse Rate 82 87 Respiratory Rate 14 16 Blood Pressure 131/56 L 146/74 H 116/58 L Pulse Oximetry 98 96 Oxygen Delivery 04/19/25 20:00 04/19/25 20:16 04/20/25 02:45 Temperature 97.4 F L Pulse Rate 80 74 Respiratory Rate 20 13 Blood Pressure 126/55 L Pulse Oximetry 97 96 Oxygen Delivery Room Air CPAP 04/20/25 05:10 Temperature 98.6 F Pulse Rate 71 Respiratory Rate 12 Blood Pressure 138/68 Pulse Oximetry 96 Oxygen Delivery Intake/Output Intake/Output: Intake & Output 04/17/25 04/18/25 04/19/25 04/20/25 23:59 23:59 23:59 23:59 Intake Total 4731.031 6955.125 810 410 Output Total 800 3350 2350 400 Balance 340.125 -1919.875 -1540 10 Meds/Results Medications: Active Medications Generic Name Dose Route Start Last Admin Trade Name Freq PRN Reason Stop Dose Admin Acetaminophen 650 mg 04/17/25 09:53 Acetaminophen 325 Mg Tablet PO Q4H PRN Mild Pain (1-3) or Fever Hydrocodone Bitart/Acetaminophen 1 tab 04/17/25 09:53 04/20/25 05:45 Hydrocodone/Acetaminophen (*Crx) 5-325 Mg Tablet PO 1 tab Q4H PRN Administration Pain Rated 4-6 Albuterol 1 puff 04/19/25 12:53 Albuterol Sulfate (*Sp) Aerosol 1 Puff INHALATION QID PRN Shortness Of Breath Or Wheezing Dextrose 12.5 gm 04/17/25 22:50 Dextrose 50% 25 Gm/50 Ml Syringe IV PUSH PRN PRN Hypoglycemia Protocol Diphenhydramine HCl 25 mg 04/19/25 13:30 04/20/25 04:59 Diphenhydramine Hcl Cap 25 Mg Capsule PO 25 mg Q8H RODERICK Administration Furosemide 20 mg 04/18/25 09:00 04/20/25 08:28 Furosemide 20 Mg Tablet PO 20 mg DAILY RODERICK Administration Gabapentin 300 mg 04/19/25 13:00 04/20/25 08:29 Gabapentin 300 Mg Capsule PO 300 mg TID RODERICK Administration Glucagon 1 mg 04/17/25 22:50 Glucagon For Inj 1 Mg Vial IM PRN PRN Hypoglycemia Protocol Glucose 15 gm 04/17/25 22:50 Glucose Oral Gel 15 Gm Of Glucse In 37.5 Gm Tube PO PRN PRN Hypoglycemia Protocol Dextrose 1,000 mls @ 100 mls/hr 04/17/25 22:50 Dextrose 5% 1,000 Ml IVPB PRN PRN Hypoglycemia Protocol Aztreonam 1 gm/ Sodium 50 mls @ 100 mls/hr 04/19/25 14:00 04/20/25 05:30 Chloride IVPB Infused Q8HR RODERICK Infusion Insulin Aspart 4 - 8 units 04/18/25 08:00 04/20/25 08:30 Insulin Aspart (*Bkc) 100 Units/Ml SUB-Q Not Given TIDWM [facility] Protocol Insulin Aspart 23 units 04/18/25 08:00 04/20/25 08:23 Insulin Aspart (*Bkc) 100 Units/Ml SUB-Q 23 units TIDWM RODERICK Administration Insulin Glargine 32 units 04/18/25 09:00 04/20/25 08:27 Insulin Glargine (*Bkc) 100 Units/Ml SUB-Q 32 units QAM RODERICK Administration Miscellaneous Information 1 each 04/19/25 00:01 Exemestane Nonformulary. Can Patient Use From Home Or Hold Till Discharge? XX 05/19/25 00:00 CLARIFY [facility] Morphine Sulfate 2 mg 04/17/25 09:53 04/20/25 04:58 Morphine Sulfate (*Crx) 4 Mg/Ml Inj IV PUSH 2 mg Q2H PRN Administration Pain Rated 7-10 Non-Formulary Medication 25 mg 04/19/25 21:00 Exemestane PO 05/19/25 20:59 HS [facility] Ondansetron HCl 4 mg 04/17/25 09:53 Ondansetron Inj 4 Mg/2 Ml Vial IV PUSH Q4H PRN Nausea Ondansetron HCl 4 mg 04/19/25 12:53 Ondansetron Hcl Odt 4 Mg Tablet PO Q8H PRN Nausea And Vomiting Oxybutynin Chloride 15 mg 04/20/25 09:00 04/20/25 08:29 Oxybutynin Chloride Xl 5 Mg Tab.Er.24 PO 15 mg DAILY RODERICK Administration Prednisone 12.5 mg 04/20/25 09:00 04/20/25 08:29 Prednisone 2.5 Mg Tablet PO 12.5 mg DAILY RODERICK Administration Rivaroxaban 20 mg 04/17/25 17:00 04/19/25 17:14 Rivaroxaban 20 Mg Tablet PO 20 mg DAILY@1700 RODERICK Administration Ropinirole HCl 5 mg 04/17/25 22:50 04/19/25 21:42 Ropinirole Hcl 1 Mg Tablet PO 5 mg HS RODERICK Administration Radiology Results: ITS Impressions Lumbar Spine CT 04/17/25 06:19 IMPRESSION: 1. Moderate lumbar spondylosis, stable from 10/06/2024. Pelvis CT 04/17/25 06:24 IMPRESSION: 1. Moderate osteoarthritis of the hips. 2. 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 3. Osteitis pubis. Hip X-Ray 04/17/25 10:01 Impression: 1: No acute bone or joint abnormality. Labs Labs: Laboratory Results - last 24 hr 04/19/25 04/19/25 04/19/25 11:33 16:30 20:18 WBC RBC Hgb Hct MCV MCH MCHC RDW Plt Count MPV Immature Gran % (Auto) Neut % (Auto) Lymph % (Auto) Trinity % (Auto) Eos % (Auto) Baso % (Auto) Lymph # (Auto) Trinity # (Auto) Eos # (Auto) Baso # (Auto) Abs Immat Gran (auto) Absolute Neuts (auto) Absolute Nucleated RBC Nucleated RBC % Sodium Potassium Chloride Carbon Dioxide Anion Gap BUN Creatinine Estim Creat Clear Calc Estimated GFR Glucose POC Capillary Glucose 238 H 119 H 216 H Calcium Magnesium Total Bilirubin AST ALT Alkaline Phosphatase Total Protein Albumin 04/20/25 04/20/25 05:13 07:38 WBC 8.9 RBC 4.43 Hgb 12.2 Hct 39.6 MCV 89.4 MCH 27.5 MCHC 30.8 L RDW 14.7 H Plt Count 266 MPV 9.6 Immature Gran % (Auto) 0.3 Neut % (Auto) 64.3 Lymph % (Auto) 23.0 Trinity % (Auto) 9.1 H Eos % (Auto) 3.0 Baso % (Auto) 0.3 Lymph # (Auto) 2.04 Trinity # (Auto) 0.8 H Eos # (Auto) 0.3 Baso # (Auto) 0.0 Abs Immat Gran (auto) 0.03 Absolute Neuts (auto) 5.7 Absolute Nucleated RBC 0.000 Nucleated RBC % 0.0 Sodium 136 L Potassium 4.0 Chloride 103 Carbon Dioxide 30 Anion Gap 3 L BUN 16 Creatinine 0.73 Estim Creat Clear Calc 81 Estimated GFR > 60 Glucose 205 H POC Capillary Glucose 191 H Calcium 9.4 Magnesium 1.7 Total Bilirubin 0.7 AST 28 ALT 25 Alkaline Phosphatase 73 Total Protein 7.2 Albumin 3.7
[2025-04-20] MEDS: MICONAZOLE NITRATE 2% CREAM 30 GM TUBE 1 APPLIC TOPICAL ×2 (11:11→20:25)
[2025-04-20] MEDS: INSULIN ASPART (*BKC) 100 UNITS/ML SUB-Q ×2 (12:26→17:31)
[2025-04-20] MEDS: RIVAROXABAN 20 MG TABLET PO (17:36)
--- NOTE | 2025-04-20 18:03 | PHAR ---
home med verified exemestane 25mg tablets
[2025-04-21] MEDS: MORPHINE SULFATE (*CRX) 4 MG/ML INJ 2 MG IV PUSH ×3 (02:13→19:41)
[2025-04-21 02:16] VITALS: PULSE 79; RESP 15; O2SAT 96
[2025-04-21 06:00] VITALS: BP 125/66; PULSE 67; RESP 18; TEMP 36.1; O2SAT 98
[2025-04-21 07:54] VITALS: RESP 18; O2SAT 98
[2025-04-21] MEDS: diphenhydrAMINE HCl CAP 25 MG CAPSULE PO ×3 (07:54→23:43)
[2025-04-21] MEDS: INSULIN ASPART (*BKC) 100 UNITS/ML 23 UNITS SUB-Q ×3 (08:31→16:59)
[2025-04-21] MEDS: INSULIN ASPART (*BKC) 100 UNITS/ML SUB-Q ×2 (08:31→16:59)
[2025-04-21] MEDS: INSULIN GLARGINE (*BKC) 100 UNITS/ML 32 UNITS SUB-Q (08:32)
[2025-04-21] MEDS: GABAPENTIN 300 MG CAPSULE PO ×3 (08:37→16:34)
[2025-04-21] MEDS: FUROSEMIDE 20 MG TABLET PO (08:38)
[2025-04-21] MEDS: oxyBUTYnin CHLORIDE XL 5 MG TAB.ER.24 15 MG PO (08:38)
[2025-04-21] MEDS: MICONAZOLE NITRATE 2% CREAM 30 GM TUBE 1 APPLIC TOPICAL ×2 (08:39→20:57)
--- NOTE | 2025-04-21 10:31 | PM.CNOR ---
Assessment and Plan Assessment and plan (1) Trochanteric bursitis of left hip: Code(s): M70.62 - Trochanteric bursitis, left hip <LINDA Choi - Last Filed: 04/21/25 16:03> Status: Acute <LINDA Choi - Last Filed: 04/21/25 16:03> (2) Morbid obesity with BMI of 50.0-59.9, adult: Code(s): E66.01 - Morbid (severe) obesity due to excess calories; Z68.43 - Body mass index [BMI] 50.0-59.9, adult <LINDA Choi - Last Filed: 04/21/25 16:03> Status: Acute <LINDA Choi - Last Filed: 04/21/25 16:03> Assessment and Plan: Exquisite anterolateral hip pain. Does not appear to be intra-articular. Bursitis with likely abductor muscle tear could explain the exquisite acute nature of the symptoms. I recommend conservative treatment with physical therapy and mobilization using the walker. As symptoms improve a cane. Will treat with a steroid injection into the left hip trochanteric bursa tomorrow morning. Thank you for the consultation. <Colten Mclean MD - Last Filed: 04/21/25 16:16> History of Present Illness HPI Consult date: 04/21/25 <LINDA Choi - Last Filed: 04/21/25 16:03> 04/21/25 <Colten Mclean MD - Last Filed: 04/21/25 16:16> Chief complaint: left hip pain <LINDA Choi - Last Filed: 04/21/25 16:03> Narrative: 69-year-old female complains of acute exquisite left hip pain. Pain is in the anterolateral aspect of the hip. Worse with weight-bearing. She was admitted over 5 days ago. She has mobilized slowly with a walker with therapy. History of chronic back pain. She says this feels different. No radiation of pain past the thigh. No distal numbness tingling, or other associated symptoms. <Colten Mclean MD - Last Filed: 04/21/25 16:16> Review of Systems Review of Systems: All systems reviewed & are unremarkable except as noted in HPI and below <Colten Mclean MD - Last Filed: 04/21/25 16:16> [facility] Past Medical History Medical History: Medical History Polymyositis with myopathy Gastroparesis Obstructive sleep apnea on CPAP Restless leg syndrome Pulmonary embolism positive for coagulation workup Deep venous thrombosis Type 2 diabetes mellitus Throat pain in adult Oral ulcer Chronic anticoagulation Overactive bladder Irritable bowel syndrome Congestive heart failure Chronic back pain Collagenous colitis Morbid obesity Breast cancer Depression Anxiety Peripheral neuropathy Kidney stone Multiple thyroid nodules <LINDA Choi - Last Filed: 04/21/25 16:03> Surgical History Surgical History: Surgical History History of umbilical hernia repair History of colonoscopy Status post insertion of spinal cord stimulator History of cystoscopy History of ureter stent History of cholecystectomy History of bilateral mastectomy History of esophagogastroduodenoscopy (EGD) History of right oophorectomy History of total right knee replacement History of cardiac catheterization Reportedly negative for coronary artery disease. <LINDA Choi - Last Filed: 04/21/25 16:03> Family History Family History: Family History Mother Diabetes mellitus Acute myocardial infarction Congestive heart failure Hypertension Cerebrovascular accident Coronary artery disease Father Prostate carcinoma Sibling Acute myocardial infarction Breast cancer Chronic obstructive pulmonary disease <LINDA Choi - Last Filed: 04/21/25 16:03> Social History Social History: Social History Social History: Surrogate medical decision maker: Jimmie Marques, spouse. (Previously listed though she reports being now) Code status: Full code. Smoking packs per day: 0 Smoking cigarettes per day: 0.0 Years smoked: 2 Smoking pack-years: 0.00 Smoking status: Former smoker Alcohol intake: never Substance use: never Substance use type: does not use Lack of Transportation: No Lack of Food: Never True Current Housing: I Have Housing Concerned About Future Housing: No Difficulty Paying Gas/Electric Bills: No Difficulty Paying for Meds: No Currently Unemployed: No Education: Associate Degree Difficulty w/ Childcare or Family Care: No Living arrangements: with family Additional living arrangements comments: daughter Additional occupation/education comments: Disabled. Spiritual care concerns: No <LINDA Choi - Last Filed: 04/21/25 16:03> Meds Home Medications and Allergies Home medications: Home Medications ?Medication ?Instructions ?Recorded ?Confirmed ?Type exemestane 25 mg tablet 25 mg PO HS 01/06/20 04/17/25 History insulin glargine 100 unit/mL (3 40 unit subcut QAM 01/06/20 04/17/25 History mL) subcutaneous pen (Lantus Solostar U-100 Insulin) ropinirole 5 mg tablet 5 mg PO HS 01/06/20 04/17/25 History insulin lispro 100 unit/mL 28 unit subcut TID 03/19/22 04/17/25 History subcutaneous pen (Humalog KwikPen (U-100) Insulin) albuterol sulfate 90 mcg/actuation 1 inh inhalation QID PRN shortness 09/19/22 04/17/25 Rx aerosol inhaler of breath or wheezing #6.7 grams oxybutynin chloride 15 mg 15 mg PO DAILY 11/06/22 04/17/25 History tablet,extended release 24 hr gabapentin 300 mg capsule 300 mg PO TID 06/25/23 04/17/25 History ondansetron 4 mg disintegrating 4 mg PO Q8H PRN nausea and 08/14/24 04/17/25 Rx tablet vomiting #10 tabs lidocaine 5 % topical ointment 1 applic topical TID PRN skin 10/06/24 04/17/25 Rx irritation #50 grams prednisone 10 mg tablet 12.5 mg PO DAILY 10/08/24 04/17/25 History rivaroxaban 20 mg tablet (Xarelto) 20 mg PO DAILY 10/08/24 04/17/25 History hydrocodone 10 mg-acetaminophen 1 tablet PO Q6H PRN pain (scale 10/18/24 04/17/25 Rx 325 mg tablet score 7-10) 5 days #10 tabs pantoprazole 40 mg tablet,delayed 40 mg PO BID 30 days #60 tabs 10/18/24 04/17/25 Rx release (Protonix) furosemide 20 mg tablet (Lasix) 20 mg PO DAILY #30 tabs 11/19/24 04/17/25 Rx oxybutynin chloride 10 mg 10 mg PO DAILY 02/15/25 04/17/25 History tablet,extended release 24 hr tamsulosin 0.4 mg capsule 0.4 mg PO DAILY 02/15/25 04/17/25 History <LINDA Choi - Last Filed: 04/21/25 16:03> Allergies/Adverse reactions: Allergies Allergy/AdvReac Type Severity Reaction Status Date / Time ceftriaxone Allergy Severe SOB Verified 04/17/25 12:31 cephalexin Allergy Severe Difficulty Verified 04/17/25 12:31 Breathing Cephalosporins Allergy Severe Difficulty Verified 04/17/25 12:31 Breathing lorazepam Allergy Severe Swelling Verified 04/17/25 12:31 trazodone Allergy Severe Swelling Verified 04/17/25 12:31 of Lip/Tongue/Throat metoclopramide Allergy Intermediate Other Verified 04/17/25 12:31 azithromycin Allergy Mild Itching Verified 04/17/25 12:31 chlorhexidine Allergy Mild BLISTERING Verified 04/17/25 12:31 levofloxacin Allergy Mild Hives / Verified 04/17/25 12:31 Red Face ketorolac Allergy Itching Verified 04/17/25 12:31 latex Allergy Rash Verified 04/17/25 12:31 meropenem Allergy Rash Verified 04/17/25 12:31 nitrofurantoin Allergy Itching Verified 04/17/25 12:31 piperacillin Allergy Rash Verified 04/17/25 12:23 reslizumab Allergy Hives Verified 04/17/25 12:31 trimethoprim (From Allergy Itching Verified 04/17/25 12:31 Sulfamethoxazole-Trimethoprim) sulfamethoxazole (From AdvReac Severe Anaphylaxis Verified 04/17/25 12:31 Sulfamethoxazole-Trimethoprim) clindamycin AdvReac Intermediate Nausea and Verified 04/17/25 12:31 Vomiting doxycycline AdvReac Mild Itching Verified 04/17/25 12:31 oxycodone AdvReac Mild Vomiting Verified 04/17/25 12:31 amlodipine AdvReac Swelling Verified 04/17/25 12:31 lisinopril AdvReac Swelling Verified 04/17/25 12:31 pregabalin AdvReac Swelling Verified 04/17/25 12:31 <LINDA Choi - Last Filed: 04/21/25 16:03> Vital Signs Vital Signs - 24 hr 04/20/25 10:55 04/20/25 14:00 04/20/25 17:37 Temperature 98.7 F Pulse Rate 88 87 Respiratory Rate 18 Blood Pressure 142/66 H 153/60 H 137/68 Pulse Oximetry 97 94 Oxygen Delivery 04/20/25 20:00 04/20/25 21:05 04/21/25 02:16 Temperature 97.6 F Pulse Rate 79 79 Respiratory Rate 20 15 Blood Pressure 128/68 Pulse Oximetry 94 96 Oxygen Delivery Room Air CPAP 04/21/25 06:00 04/21/25 07:54 Temperature 97 F L Pulse Rate 67 Respiratory Rate 18 18 Blood Pressure 125/66 Pulse Oximetry 98 98 Oxygen Delivery Room Air <LINDA Choi - Last Filed: 04/21/25 16:03> Exam Narrative: Morbidly obese. Comfortable. Tender at the anterolateral greater tuberosity area exquisitely. Gentle hip motion well tolerated flexion 100? internal rotation 20? external rotation 40?. No distal edema. Anterior tibialis 5/5, extensor hallucis longus 5/5. CT scan the hip shows no evidence of acute fracture or deformity. Minimal arthritis of the hip. The abductor musculature shows no prominent atrophy. Left hip plain films show no acute fractures. No definite arthritic changes. <Colten Mclean MD - Last Filed: 04/21/25 16:16> Results Labs Result Diagrams: 04/20/25 05:13 04/20/25 05:13 <LINDA Choi - Last Filed: 04/21/25 16:03> Labs: Abnormal lab results 04/20/25 04/20/25 04/20/25 Range/Units 11:33 16:49 21:03 POC Capillary Glucose 273 H 219 H 254 H (65-105) mg/dl 04/21/25 Range/Units 08:00 POC Capillary Glucose 222 H (65-105) mg/dl H & H 04/17/25 04/19/25 04/20/25 Range/Units 05:39 05:19 05:13 Hgb 12.2 12.0 12.2 (12.0-15.0) g/dL Hct 39.9 39.3 39.6 (37.0-47.0) % All other labs normal. <LINDA Choi - Last Filed: 04/21/25 16:03>
--- NOTE | 2025-04-21 10:56 | P.PNIM_ITS ---
Assessment and Plan Assessment and Plan (1) Acute UTI: Code(s): N39.0 - Urinary tract infection, site not specified Status: Acute Assessment and Plan: Urine culture and IV gentamicin due to multiple drug allergies Became short of breath and HE with gentamicin. Will stop that Discussed other option started on aztreonam which she is tolerating well. She had tolerated this in the past Urine culture comes back with E coli. Only oral option as levofloxacin. Switch to oral levofloxacin and tolerating well. (2) Essential hypertension: Code(s): I10 - Essential (primary) hypertension Status: Acute Assessment and Plan: Stable on current medications, will continue current treatment. (3) Insulin dependent diabetes mellitus: Status: Acute Assessment and Plan: Stable on current medication, will continue current treatment. (4) Chronic anticoagulation: Code(s): Z79.01 - assisted (current) use of anticoagulants Status: Acute Assessment and Plan: Continue current treatment monitor closely. (5) Osteoarthritis: Code(s): M19.90 - Unspecified osteoarthritis, unspecified site Status: Inactive Assessment and Plan: Continue pain medications. Start physical therapy stable. Left hip pain. Ongoing Can not get MRI due to spinal stimulator place. Will add muscle relaxant. Diclofenac gel locally. Orthopedic consultation. Seems to have trochanteric bursitis. Plan History of polymyalgia rheumatica on prednisone 12.5 mg daily per special agent which is continued. Perineal rash will treat with nystatin. DVT prophylaxis Xarelto Code status full. Subjective Date/time seen: 04/21/25 10:56 Interval history: No overnight events. Continues to have left hip pain. Has not work with physical therapy. Tolerated levofloxacin yesterday. Review of Systems Review of Systems: All systems reviewed & are unremarkable except as noted in HPI and below Exam Narrative: GENERAL: Well-appearing, well-nourished, and in no acute distress. HEAD: Normocephalic, atraumatic. EYES: PERRLA and EOMI. ENT: Nares clear, no rhinorrhea or epistaxis. Mucous membranes moist. NECK: Supple. CHEST: Clear to auscultation. No respiratory distress. HEART: Regular rate and rhythm. No murmur heard. Normal peripheral pulses. ABDOMEN: Soft, Nontender, nondistended, normal active bowel sounds. EXTREMITIES: Normal range of motion tenderness to palpation the left hip area and lumbar region. No edema. SKIN: Warm, dry, no rash. NEURO: No focal deficits. Alert and oriented x3. PSYCH: Normal mood and affect. Objective Data Vital Signs Vital Signs: Vital Signs - 24 hr 04/20/25 14:00 04/20/25 17:37 04/20/25 20:00 Temperature 98.7 F Pulse Rate 87 Respiratory Rate 18 Blood Pressure 153/60 H 137/68 Pulse Oximetry 94 Oxygen Delivery Room Air 04/20/25 21:05 04/21/25 02:16 04/21/25 06:00 Temperature 97.6 F 97 F L Pulse Rate 79 79 67 Respiratory Rate 20 15 18 Blood Pressure 128/68 125/66 Pulse Oximetry 94 96 98 Oxygen Delivery CPAP 04/21/25 07:54 Temperature Pulse Rate Respiratory Rate 18 Blood Pressure Pulse Oximetry 98 Oxygen Delivery Room Air Intake/Output Intake/Output: Intake & Output 04/18/25 04/19/25 04/20/25 04/21/25 23:59 23:59 23:59 23:59 Intake Total 1430.125 810 923 580 Output Total 3350 2350 2200 650 Balance -1919.875 -1540 -1277 -70 Meds/Results Medications: Active Medications Generic Name Dose Route Start Last Admin Trade Name Freq PRN Reason Stop Dose Admin Acetaminophen 650 mg 04/17/25 09:53 Acetaminophen 325 Mg Tablet PO Q4H PRN Mild Pain (1-3) or Fever Hydrocodone Bitart/Acetaminophen 1 tab 04/17/25 09:53 04/20/25 20:26 Hydrocodone/Acetaminophen (*Crx) 5-325 Mg Tablet PO 1 tab Q4H PRN Administration Pain Rated 4-6 Albuterol 1 puff 04/19/25 12:53 Albuterol Sulfate (*Sp) Aerosol 1 Puff INHALATION QID PRN Shortness Of Breath Or Wheezing Dextrose 12.5 gm 04/17/25 22:50 Dextrose 50% 25 Gm/50 Ml Syringe IV PUSH PRN PRN Hypoglycemia Protocol Diclofenac Sodium 1 applic 04/21/25 13:00 Diclofenac Sodium 1% 100 Gm Gel (*Bkc) TOPICAL QID RODERICK Diphenhydramine HCl 25 mg 04/21/25 08:30 04/21/25 07:54 Diphenhydramine Hcl Cap 25 Mg Capsule PO 25 mg Q8H RODERICK Administration Furosemide 20 mg 12/26/25 09:00 04/21/25 08:38 Furosemide 20 Mg Tablet PO 20 mg DAILY RODERICK Administration Gabapentin 300 mg 04/19/25 13:00 04/21/25 08:37 Gabapentin 300 Mg Capsule PO 300 mg TID RODERICK Administration Glucagon 1 mg 04/17/25 22:50 Glucagon For Inj 1 Mg Vial IM PRN PRN Hypoglycemia Protocol Glucose 15 gm 04/17/25 22:50 Glucose Oral Gel 15 Gm Of Glucse In 37.5 Gm Tube PO PRN PRN Hypoglycemia Protocol Dextrose 1,000 mls @ 100 mls/hr 04/17/25 22:50 Dextrose 5% 1,000 Ml IVPB PRN PRN Hypoglycemia Protocol Insulin Aspart 4 - 8 units 04/18/25 08:00 04/21/25 08:31 Insulin Aspart (*Bkc) 100 Units/Ml SUB-Q 4 units TIDWM RODERICK Administration Protocol Insulin Aspart 23 units 04/18/25 08:00 04/21/25 08:31 Insulin Aspart (*Bkc) 100 Units/Ml SUB-Q 23 units TIDWM RODERICK Administration Insulin Glargine 32 units 04/18/25 09:00 04/21/25 08:32 Insulin Glargine (*Bkc) 100 Units/Ml SUB-Q 32 units QAM RODERICK Administration Levofloxacin 750 mg 04/20/25 10:00 04/21/25 08:38 Levofloxacin 750 Mg Tablet PO 750 mg DAILY RODERICK Administration Metaxalone 800 mg 04/21/25 13:00 Metaxalone 800 Mg Tablet PO TID [facility] Miconazole Nitrate 1 applic 04/20/25 11:00 04/21/25 08:39 Miconazole Nitrate 2% Cream 30 Gm Tube TOPICAL 1 applic Q12HR RODERICK Administration Morphine Sulfate 2 mg 04/17/25 09:53 04/21/25 07:54 Morphine Sulfate (*Crx) 4 Mg/Ml Inj IV PUSH 2 mg Q2H PRN Administration Pain Rated 7-10 Home Med ( 25 mg 04/20/25 21:00 04/20/25 20:25 Exemestane 25 Mg PO 05/20/25 20:59 25 mg Tablet) HS RODERICK Administration Ondansetron HCl 4 mg 04/17/25 09:53 Ondansetron Inj 4 Mg/2 Ml Vial IV PUSH Q4H PRN Nausea Ondansetron HCl 4 mg 04/19/25 12:53 Ondansetron Hcl Odt 4 Mg Tablet PO Q8H PRN Nausea And Vomiting Oxybutynin Chloride 15 mg 04/20/25 09:00 04/21/25 08:38 Oxybutynin Chloride Xl 5 Mg Tab.Er.24 PO 15 mg DAILY RODERICK Administration Prednisone 12.5 mg 04/20/25 09:00 04/21/25 08:37 Prednisone 2.5 Mg Tablet PO 12.5 mg DAILY RODERICK Administration Rivaroxaban 20 mg 04/17/25 17:00 04/20/25 17:36 Rivaroxaban 20 Mg Tablet PO 20 mg DAILY@1700 RODERICK Administration Ropinirole HCl 5 mg 04/17/25 22:50 04/20/25 20:27 Ropinirole Hcl 1 Mg Tablet PO 5 mg HS RODERICK Administration Radiology Results: ITS Impressions Lumbar Spine CT 04/17/25 06:19 IMPRESSION: 1. Moderate lumbar spondylosis, stable from 10/06/2024. Pelvis CT 04/17/25 06:24 IMPRESSION: 1. Moderate osteoarthritis of the hips. 2. 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 3. Osteitis pubis. Hip X-Ray 04/17/25 10:01 Impression: 1: No acute bone or joint abnormality. Labs Labs: Laboratory Results - last 24 hr 04/20/25 04/20/25 04/20/25 11:33 16:49 21:03 POC Capillary Glucose 273 H 219 H 254 H 04/21/25 08:00 POC Capillary Glucose 222 H
--- NOTE | 2025-04-21 11:00 | WPDIDCN ---
Assessment and Plan Assessment and plan (1) Acute UTI: Code(s): N39.0 - Urinary tract infection, site not specified Status: Acute (2) Multiple drug allergies: Code(s): Z88.9 - Allergy status to unspecified drugs, medicaments and biological substances Status: Acute Plan # Amp-C E coli UTI. # Multiple reported allergies including quinolones but tolerating levofloxacin. Plan: -- continue oral levofloxacin through 04/27/2025. However, decrease dose to 500 mg daily. -- recommend removing levofloxacin from her list of allergies unless she develops a delayed rash. HPI Data of Consult Date/Time: 04/21/25 11:00 Requesting Physician: Tunde Rivera MD Primary Care Provider: Justen GaleMD Consult Narrative Reason for consult: UTI Narrative: Karly Marques is a 69 year old female admitted through the ED 04/17/2025 with lower abdominal and left hip pain secondary to UTI. urine culture positive Amp-C E coli. Patient claims significant allergies to penicillins, cephalosporins, carbapenems, levofloxacin, Bactrim, clindamycin, tetracyclines, and azithromycin. Initially placed on gentamicin with report of subsequent shortness of breath and transition to aztreonam which was tolerated. Despite allergy to levofloxacin she has now been transitioned from aztreonam to this agent and is apparently tolerating. Early today is day 4 of antibiotic treatment. No fever on presentation and low-grade leukocytosis has since resolved. Review of Systems Review of Systems: All systems reviewed & are unremarkable except as noted in HPI and below PMFSH Past Medical History Medical History Polymyositis with myopathy Gastroparesis Obstructive sleep apnea on CPAP Restless leg syndrome Pulmonary embolism positive for coagulation workup Deep venous thrombosis Type 2 diabetes mellitus Throat pain in adult Oral ulcer Chronic anticoagulation Overactive bladder Irritable bowel syndrome Congestive heart failure Chronic back pain Collagenous colitis Morbid obesity Breast cancer Depression Anxiety Peripheral neuropathy Kidney stone Multiple thyroid nodules Surgical History Surgical History History of umbilical hernia repair History of colonoscopy Status post insertion of spinal cord stimulator History of cystoscopy History of ureter stent History of cholecystectomy History of bilateral mastectomy History of esophagogastroduodenoscopy (EGD) History of right oophorectomy History of total right knee replacement History of cardiac catheterization Reportedly negative for coronary artery disease. Family History Family History Mother Diabetes mellitus Acute myocardial infarction Congestive heart failure Hypertension Cerebrovascular accident Coronary artery disease Father Prostate carcinoma Sibling Acute myocardial infarction Breast cancer Chronic obstructive pulmonary disease Social History Social History Social History: Surrogate medical decision maker: Jimmie Marques, spouse. (Previously listed though she reports being now) Code status: Full code. Smoking packs per day: 0 Smoking cigarettes per day: 0.0 Years smoked: 2 Smoking pack-years: 0.00 Smoking status: Former smoker Alcohol intake: never Substance use: never Substance use type: does not use Lack of Transportation: No Lack of Food: Never True Current Housing: I Have Housing Concerned About Future Housing: No Difficulty Paying Gas/Electric Bills: No Difficulty Paying for Meds: No Currently Unemployed: No Education: Associate Degree Difficulty w/ Childcare or Family Care: No Living arrangements: with family Additional living arrangements comments: daughter Additional occupation/education comments: Disabled. Spiritual care concerns: No Meds Home Medications and Allergies Home Medications ?Medication ?Instructions ?Recorded ?Confirmed ?Type exemestane 25 mg tablet 25 mg PO HS 01/06/20 04/17/25 History insulin glargine 100 unit/mL (3 40 unit subcut QAM 01/06/20 04/17/25 History mL) subcutaneous pen (Lantus Solostar U-100 Insulin) ropinirole 5 mg tablet 5 mg PO HS 01/06/20 04/17/25 History insulin lispro 100 unit/mL 28 unit subcut TID 03/19/22 04/17/25 History subcutaneous pen (Humalog KwikPen (U-100) Insulin) albuterol sulfate 90 mcg/actuation 1 inh inhalation QID PRN shortness 09/19/22 04/17/25 Rx aerosol inhaler of breath or wheezing #6.7 grams oxybutynin chloride 15 mg 15 mg PO DAILY 11/06/22 04/17/25 History tablet,extended release 24 hr gabapentin 300 mg capsule 300 mg PO TID 06/25/23 04/17/25 History ondansetron 4 mg disintegrating 4 mg PO Q8H PRN nausea and 08/14/24 04/17/25 Rx tablet vomiting #10 tabs lidocaine 5 % topical ointment 1 applic topical TID PRN skin 10/06/24 04/17/25 Rx irritation #50 grams prednisone 10 mg tablet 12.5 mg PO DAILY 10/08/24 04/17/25 History rivaroxaban 20 mg tablet (Xarelto) 20 mg PO DAILY 10/08/24 04/17/25 History hydrocodone 10 mg-acetaminophen 1 tablet PO Q6H PRN pain (scale 10/18/24 04/17/25 Rx 325 mg tablet score 7-10) 5 days #10 tabs pantoprazole 40 mg tablet,delayed 40 mg PO BID 30 days #60 tabs 10/18/24 04/17/25 Rx release (Protonix) furosemide 20 mg tablet (Lasix) 20 mg PO DAILY #30 tabs 11/19/24 04/17/25 Rx oxybutynin chloride 10 mg 10 mg PO DAILY 02/15/25 04/17/25 History tablet,extended release 24 hr tamsulosin 0.4 mg capsule 0.4 mg PO DAILY 02/15/25 04/17/25 History Allergies Allergy/AdvReac Type Severity Reaction Status Date / Time ceftriaxone Allergy Severe SOB Verified 04/17/25 12:31 cephalexin Allergy Severe Difficulty Verified 04/17/25 12:31 Breathing Cephalosporins Allergy Severe Difficulty Verified 04/17/25 12:31 Breathing lorazepam Allergy Severe Swelling Verified 04/17/25 12:31 trazodone Allergy Severe Swelling Verified 04/17/25 12:31 of Lip/Tongue/Throat metoclopramide Allergy Intermediate Other Verified 04/17/25 12:31 azithromycin Allergy Mild Itching Verified 04/17/25 12:31 chlorhexidine Allergy Mild BLISTERING Verified 04/17/25 12:31 levofloxacin Allergy Mild Hives / Verified 04/17/25 12:31 Red Face ketorolac Allergy Itching Verified 04/17/25 12:31 latex Allergy Rash Verified 04/17/25 12:31 meropenem Allergy Rash Verified 04/17/25 12:31 nitrofurantoin Allergy Itching Verified 04/17/25 12:31 piperacillin Allergy Rash Verified 04/17/25 12:23 reslizumab Allergy Hives Verified 04/17/25 12:31 trimethoprim (From Allergy Itching Verified 04/17/25 12:31 Sulfamethoxazole-Trimethoprim) sulfamethoxazole (From AdvReac Severe Anaphylaxis Verified 04/17/25 12:31 Sulfamethoxazole-Trimethoprim) clindamycin AdvReac Intermediate Nausea and Verified 04/17/25 12:31 Vomiting doxycycline AdvReac Mild Itching Verified 04/17/25 12:31 oxycodone AdvReac Mild Vomiting Verified 04/17/25 12:31 amlodipine AdvReac Swelling Verified 04/17/25 12:31 lisinopril AdvReac Swelling Verified 04/17/25 12:31 pregabalin AdvReac Swelling Verified 04/17/25 12:31 Vital Signs Vital Signs - 24 hr 04/20/25 14:00 04/20/25 17:37 04/20/25 20:00 Temperature 98.7 F Pulse Rate 87 Respiratory Rate 18 Blood Pressure 153/60 H 137/68 Pulse Oximetry 94 Oxygen Delivery Room Air 04/20/25 21:05 04/21/25 02:16 04/21/25 06:00 Temperature 97.6 F 97 F L Pulse Rate 79 79 67 Respiratory Rate 20 15 18 Blood Pressure 128/68 125/66 Pulse Oximetry 94 96 98 Oxygen Delivery CPAP 04/21/25 07:54 Temperature Pulse Rate Respiratory Rate 18 Blood Pressure Pulse Oximetry 98 Oxygen Delivery Room Air Results Labs 04/20/25 05:13 04/20/25 05:13
[2025-04-21] MEDS: DICLOFENAC SODIUM 1% 100 GM GEL (*BKC) 1 APPLIC TOPICAL ×3 (12:09→20:56)
[2025-04-21] MEDS: METAXALONE 800 MG TABLET PO ×2 (12:09→16:34)
[2025-04-21 14:00] VITALS: BP 145/71; PULSE 88; RESP 16; TEMP 36.4; O2SAT 94
[2025-04-21] MEDS: HYDROcodone/acetaminophen (*CRX) 5-325 MG TABLET 1 TAB PO ×2 (15:27→20:54)
[2025-04-21] MEDS: RIVAROXABAN 20 MG TABLET PO (16:34)
[2025-04-21 21:41] VITALS: BP 144/70; PULSE 75; RESP 16; TEMP 36.4; O2SAT 95
[2025-04-21 22:35] VITALS: PULSE 77; RESP 17; O2SAT 96
[2025-04-22 01:29] VITALS: PULSE 71; RESP 14; O2SAT 96
[2025-04-22] MEDS: MORPHINE SULFATE (*CRX) 4 MG/ML INJ 2 MG IV PUSH ×2 (04:04→19:47)
[2025-04-22 05:27] VITALS: BP 126/63; PULSE 75; RESP 18; TEMP 36.6; O2SAT 98
[2025-04-22] MEDS: HYDROcodone/acetaminophen (*CRX) 5-325 MG TABLET 1 TAB PO ×3 (07:40→16:40)
[2025-04-22] MEDS: diphenhydrAMINE HCl CAP 25 MG CAPSULE PO ×2 (07:40→16:36)
[2025-04-22 07:54] VITALS: RESP 18; O2SAT 98
[2025-04-22] MEDS: DICLOFENAC SODIUM 1% 100 GM GEL (*BKC) 1 APPLIC TOPICAL ×4 (08:09→20:56)
[2025-04-22] MEDS: MICONAZOLE NITRATE 2% CREAM 30 GM TUBE 1 APPLIC TOPICAL ×2 (08:10→20:56)
[2025-04-22] MEDS: oxyBUTYnin CHLORIDE XL 5 MG TAB.ER.24 15 MG PO (08:10)
[2025-04-22] MEDS: GABAPENTIN 300 MG CAPSULE PO ×3 (08:10→16:36)
[2025-04-22] MEDS: METAXALONE 800 MG TABLET PO ×3 (08:11→16:36)
[2025-04-22] MEDS: FUROSEMIDE 20 MG TABLET PO (08:11)
[2025-04-22] MEDS: INSULIN ASPART (*BKC) 100 UNITS/ML 23 UNITS SUB-Q ×3 (08:15→16:56)
[2025-04-22] MEDS: INSULIN GLARGINE (*BKC) 100 UNITS/ML 32 UNITS SUB-Q (08:17)
[2025-04-22] MEDS: BUPivacaine HCL 0.5% 10 ML AMP 4 ML XX (09:20)
[2025-04-22] MEDS: methylPREDNISolone ACETATE 80 MG/ML VIAL XX (09:21)
--- NOTE | 2025-04-22 09:34 | WPDPROCEDUR ---
Procedures Joint Aspiration/Injection Joint Asp./Inject. 1: Time out performed: Yes Side of body: left Joint aspirated: other (Left trochanteric bursa) Ultrasound guidance: No Skin prep: Chlorhexidine (And Alcohol pads. ) Local anesthesia used: bupivacaine 0.5% Amount of anesthesia used (ml): 4 Needle size used: 22G Fluid obtained: none Medication injected, if any: Methylprednisolone (Depo 80) Amount of medication injected (ml): 1 Patient tolerated procedure: well Complications: none Additional comments: Risks, benefits, alternatives to steroid injections discussed. Patient tolerated injection well.
--- NOTE | 2025-04-22 09:37 | P.PNOP_ITS ---
Progress Note: A&P Assessment and Plan (1) Trochanteric bursitis of left hip: Code(s): M70.62 - Trochanteric bursitis, left hip Status: Acute (2) Morbid obesity with BMI of 50.0-59.9, adult: Code(s): E66.01 - Morbid (severe) obesity due to excess calories; Z68.43 - Body mass index [BMI] 50.0-59.9, adult Status: Acute Plan Trochanteric bursitis with likely abductor muscle tear could explain the exquisite acute nature of the symptoms. After further discussion she states she was doing a lot of cleaning and cooking to prepare for her family coming over for [place]. I recommend a steroid injection today in the left trochanteric bursa. Risks, benefits, alternatives to steroid injections discussed. Patient tolerated injection well. Depo 80 with bupivacaine injected. I recommend conservative treatment with physical therapy and mobilization using the walker. As symptoms improve a cane. She may follow up in office as needed. Thank you for the consultation. Time Spent With Patient Time with patient: 15 - 25 minutes Subjective Subjective Date/Time Seen: 04/22/25 09:37 Interval history: Patient resting comfortably. Complains of pain at the left trochanteric bursa and left lateral hip. Some pain does radiate into the groin. Pain started a few days before admission to the hospital. She states she was preparing for her family to come over for [employer] and was cleaning/cooking more than usual. No known injury. No new weakness. No new numbness or tingling. She is able to bear weight with a walker. Review of Systems Review of Systems: All systems reviewed & are unremarkable except as noted in HPI and below Exam Narrative: Exam: Pleasant morbidly obese (BMI 54.2) 69 y/o female. A&O x3. No acute distress. No clinical deformity. I did not watch her walk. Negative Stinchfield sign. Exquisite tenderness at the greater trochanter and hip abductors. Pain laterally with FADIR and MAXIMUS. Gentle hip motion well tolerated flexion 100? internal ro tation 20? external rotation 40?. No distal edema. Anterior tibialis 5/5, extensor hallucis longus 5/5. No rash or lesions. No mass or swelling. No distal edema. Light touch sensation intact. Dorsalis pedis pulse normal. Objective Data Vital Signs Vital Signs: Vital Signs - 24 hr 04/21/25 14:00 04/21/25 20:00 04/21/25 21:41 Temperature 97.6 F 97.6 F Pulse Rate 88 75 Respiratory Rate 16 16 Blood Pressure 145/71 H 144/70 H Pulse Oximetry 94 95 Oxygen Delivery Room Air 04/21/25 22:35 04/22/25 01:29 04/22/25 05:27 Temperature 97.8 F Pulse Rate 77 71 75 Respiratory Rate 17 14 18 Blood Pressure 126/63 Pulse Oximetry 96 96 98 Oxygen Delivery CPAP CPAP 04/22/25 07:54 Temperature Pulse Rate Respiratory Rate 18 Blood Pressure Pulse Oximetry 98 Oxygen Delivery CPAP Intake/Output Intake/Output: Intake & Output 04/19/25 04/20/25 04/21/25 04/22/25 23:59 23:59 23:59 23:59 Intake Total 408 083 9473 400 Output Total 2350 2200 1750 400 Balance -1540 -1277 -330 0 Meds/Results Medications: Active Medications Generic Name Dose Route Start Last Admin Trade Name Freq PRN Reason Stop Dose Admin Acetaminophen 650 mg 04/17/25 09:53 Acetaminophen 325 Mg Tablet PO Q4H PRN Mild Pain (1-3) or Fever Hydrocodone Bitart/Acetaminophen 1 tab 04/17/25 09:53 04/22/25 07:40 Hydrocodone/Acetaminophen (*Crx) 5-325 Mg Tablet PO 1 tab Q4H PRN Administration Pain Rated 4-6 Albuterol 1 puff 04/19/25 12:53 Albuterol Sulfate (*Sp) Aerosol 1 Puff INHALATION QID PRN Shortness Of Breath Or Wheezing Dextrose 12.5 gm 04/17/25 22:50 Dextrose 50% 25 Gm/50 Ml Syringe IV PUSH PRN PRN Hypoglycemia Protocol Diclofenac Sodium 1 applic 04/21/25 13:00 04/22/25 08:09 Diclofenac Sodium 1% 100 Gm Gel (*Bkc) TOPICAL 1 applic QID RODERICK Administration Diphenhydramine HCl 25 mg 04/21/25 08:30 04/22/25 07:40 Diphenhydramine Hcl Cap 25 Mg Capsule PO 25 mg Q8H RODERICK Administration Furosemide 20 mg 04/18/25 09:00 04/22/25 08:11 Furosemide 20 Mg Tablet PO 20 mg DAILY RODERICK Administration Gabapentin 300 mg 04/19/25 13:00 04/22/25 08:10 Gabapentin 300 Mg Capsule PO 300 mg TID RODERICK Administration Glucagon 1 mg 04/17/25 22:50 Glucagon For Inj 1 Mg Vial IM PRN PRN Hypoglycemia Protocol Glucose 15 gm 04/17/25 22:50 Glucose Oral Gel 15 Gm Of Glucse In 37.5 Gm Tube PO PRN PRN Hypoglycemia Protocol Dextrose 1,000 mls @ 100 mls/hr 04/17/25 22:50 Dextrose 5% 1,000 Ml IVPB PRN PRN Hypoglycemia Protocol Insulin Aspart 4 - 8 units 04/18/25 08:00 04/22/25 08:18 Insulin Aspart (*Bkc) 100 Units/Ml SUB-Q Not Given TIDWM [facility] Protocol Insulin Aspart 23 units 04/18/25 08:00 04/22/25 08:15 Insulin Aspart (*Bkc) 100 Units/Ml SUB-Q 23 units TIDWM RODERICK Administration Insulin Glargine 32 units 04/18/25 09:00 04/22/25 08:17 Insulin Glargine (*Bkc) 100 Units/Ml SUB-Q 32 units QAM RODERICK Administration Levofloxacin 500 mg 04/22/25 09:00 04/22/25 08:10 Levofloxacin 500 Mg Tablet PO 04/24/25 23:59 500 mg DAILY RODERICK Administration Metaxalone 800 mg 04/21/25 13:00 04/22/25 08:11 Metaxalone 800 Mg Tablet PO 800 mg TID RODERICK Administration Miconazole Nitrate 1 applic 04/20/25 11:00 04/22/25 08:10 Miconazole Nitrate 2% Cream 30 Gm Tube TOPICAL 1 applic Q12HR RODERICK Administration Morphine Sulfate 2 mg 04/17/25 09:53 04/22/25 04:04 Morphine Sulfate (*Crx) 4 Mg/Ml Inj IV PUSH 2 mg Q2H PRN Administration Pain Rated 7-10 Home Med ( 25 mg 04/20/25 21:00 04/21/25 20:56 Exemestane 25 Mg PO 05/20/25 20:59 25 mg Tablet) HS RODERICK Administration Ondansetron HCl 4 mg 04/17/25 09:53 Ondansetron Inj 4 Mg/2 Ml Vial IV PUSH Q4H PRN Nausea Ondansetron HCl 4 mg 04/19/25 12:53 Ondansetron Hcl Odt 4 Mg Tablet PO Q8H PRN Nausea And Vomiting Oxybutynin Chloride 15 mg 04/20/25 09:00 04/22/25 08:10 Oxybutynin Chloride Xl 5 Mg Tab.Er.24 PO 15 mg DAILY RODERICK Administration Prednisone 12.5 mg 04/20/25 09:00 04/22/25 08:11 Prednisone 2.5 Mg Tablet PO 12.5 mg DAILY RODERICK Administration Rivaroxaban 20 mg 04/17/25 17:00 04/21/25 16:34 Rivaroxaban 20 Mg Tablet PO 20 mg DAILY@1700 RODERICK Administration Ropinirole HCl 5 mg 04/17/25 22:50 04/21/25 20:54 Ropinirole Hcl 1 Mg Tablet PO 5 mg HS RODERICK Administration Radiology Results: ITS Impressions Lumbar Spine CT 04/17/25 06:19 IMPRESSION: 1. Moderate lumbar spondylosis, stable from 10/06/2024. Pelvis CT 04/17/25 06:24 IMPRESSION: 1. Moderate osteoarthritis of the hips. 2. 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 3. Osteitis pubis. Hip X-Ray 04/17/25 10:01 Impression: 1: No acute bone or joint abnormality. Labs Labs: Laboratory Results - last 24 hr 04/21/25 04/21/25 04/21/25 11:36 16:44 21:39 POC Capillary Glucose 180 H 231 H 260 H 04/22/25 08:05 POC Capillary Glucose 198 H
--- NOTE | 2025-04-22 11:35 | P.PNIM_ITS ---
Assessment and Plan Assessment and Plan (1) Acute UTI: Code(s): N39.0 - Urinary tract infection, site not specified Status: Acute Assessment and Plan: Urine culture and IV gentamicin due to multiple drug allergies Became short of breath and HE with gentamicin. Will stop that Discussed other option started on aztreonam which she is tolerating well. She had tolerated this in the past Urine culture comes back with E coli. Only oral option as levofloxacin. Switch to oral levofloxacin and tolerating well. Levofloxacin until 04/27/2025 per ID recommendations (2) Essential hypertension: Code(s): I10 - Essential (primary) hypertension Status: Acute Assessment and Plan: Stable on current medications, will continue current treatment. (3) Insulin dependent diabetes mellitus: Status: Acute Assessment and Plan: Stable on current medication, will continue current treatment. (4) Chronic anticoagulation: Code(s): Z79.01 - custodial (current) use of anticoagulants Status: Acute Assessment and Plan: Continue current treatment monitor closely. (5) Osteoarthritis: Code(s): M19.90 - Unspecified osteoarthritis, unspecified site Status: Inactive Assessment and Plan: Continue pain medications. Start physical therapy stable. Left hip pain. Ongoing Can not get MRI due to spinal stimulator place. Will add muscle relaxant. Diclofenac gel locally. Orthopedic consultation. Seems to have trochanteric bursitis. Status post steroid injection by Orthopedics. Continue PT OT and mobilization. Follow up with Orthopedics as an outpatient basis. Plan History of polymyalgia rheumatica on prednisone 12.5 mg daily per event producer which is continued. Perineal rash will treat with nystatin. DVT prophylaxis Xarelto Code status full. Subjective Date/time seen: 04/22/25 11:35 Interval history: No overnight events. Received an injection in her left hip this morning. Walked to the bathroom yesterday with physical therapy. Tolerating levofloxacin. Review of Systems Review of Systems: All systems reviewed & are unremarkable except as noted in HPI and below Exam Narrative: GENERAL: Well-appearing, well-nourished, and in no acute distress. HEAD: Normocephalic, atraumatic. EYES: PERRLA and EOMI. ENT: Nares clear, no rhinorrhea or epistaxis. Mucous membranes moist. NECK: Supple. CHEST: Clear to auscultation. No respiratory distress. HEART: Regular rate and rhythm. No murmur heard. Normal peripheral pulses. ABDOMEN: Soft, Nontender, nondistended, normal active bowel sounds. EXTREMITIES: Normal range of motion tenderness to palpation the left hip area and lumbar region. No edema. SKIN: Warm, dry, no rash. NEURO: No focal deficits. Alert and oriented x3. PSYCH: Normal mood and affect. Objective Data Vital Signs Vital Signs: Vital Signs - 24 hr 04/21/25 14:00 04/21/25 20:00 04/21/25 21:41 Temperature 97.6 F 97.6 F Pulse Rate 88 75 Respiratory Rate 16 16 Blood Pressure 145/71 H 144/70 H Pulse Oximetry 94 95 Oxygen Delivery Room Air 04/21/25 22:35 04/22/25 01:29 04/22/25 05:27 Temperature 97.8 F Pulse Rate 77 71 75 Respiratory Rate 17 14 18 Blood Pressure 126/63 Pulse Oximetry 96 96 98 Oxygen Delivery CPAP CPAP 04/22/25 07:54 Temperature Pulse Rate Respiratory Rate 18 Blood Pressure Pulse Oximetry 98 Oxygen Delivery CPAP Intake/Output Intake/Output: Intake & Output 04/19/25 04/20/25 04/21/25 04/22/25 23:59 23:59 23:59 23:59 Intake Total 414 962 1398 880 Output Total 2350 2200 1750 400 Balance -1540 -1277 -330 480 Meds/Results Medications: Active Medications Generic Name Dose Route Start Last Admin Trade Name Freq PRN Reason Stop Dose Admin Acetaminophen 650 mg 04/17/25 09:53 Acetaminophen 325 Mg Tablet PO Q4H PRN Mild Pain (1-3) or Fever Hydrocodone Bitart/Acetaminophen 1 tab 04/17/25 09:53 04/22/25 07:40 Hydrocodone/Acetaminophen (*Crx) 5-325 Mg Tablet PO 1 tab Q4H PRN Administration Pain Rated 4-6 Albuterol 1 puff 04/19/25 12:53 Albuterol Sulfate (*Sp) Aerosol 1 Puff INHALATION QID PRN Shortness Of Breath Or Wheezing Dextrose 12.5 gm 04/17/25 22:50 Dextrose 50% 25 Gm/50 Ml Syringe IV PUSH PRN PRN Hypoglycemia Protocol Diclofenac Sodium 1 applic 04/21/25 13:00 04/22/25 08:09 Diclofenac Sodium 1% 100 Gm Gel (*Bkc) TOPICAL 1 applic QID RODERICK Administration Diphenhydramine HCl 25 mg 04/21/25 08:30 04/22/25 07:40 Diphenhydramine Hcl Cap 25 Mg Capsule PO 25 mg Q8H RODERICK Administration Furosemide 20 mg 04/18/25 09:00 04/22/25 08:11 Furosemide 20 Mg Tablet PO 20 mg DAILY RODERICK Administration Gabapentin 300 mg 04/19/25 13:00 04/22/25 08:10 Gabapentin 300 Mg Capsule PO 300 mg TID RODERICK Administration Glucagon 1 mg 04/17/25 22:50 Glucagon For Inj 1 Mg Vial IM PRN PRN Hypoglycemia Protocol Glucose 15 gm 04/17/25 22:50 Glucose Oral Gel 15 Gm Of Glucse In 37.5 Gm Tube PO PRN PRN Hypoglycemia Protocol Dextrose 1,000 mls @ 100 mls/hr 04/17/25 22:50 Dextrose 5% 1,000 Ml IVPB PRN PRN Hypoglycemia Protocol Insulin Aspart 4 - 8 units 04/18/25 08:00 04/22/25 08:18 Insulin Aspart (*Bkc) 100 Units/Ml SUB-Q Not Given TIDWM [facility] Protocol Insulin Aspart 23 units 04/18/25 08:00 04/22/25 08:15 Insulin Aspart (*Bkc) 100 Units/Ml SUB-Q 23 units TIDWM RODERICK Administration Insulin Glargine 32 units 04/18/25 09:00 04/22/25 08:17 Insulin Glargine (*Bkc) 100 Units/Ml SUB-Q 32 units QAM RODERICK Administration Levofloxacin 500 mg 04/22/25 09:00 04/22/25 08:10 Levofloxacin 500 Mg Tablet PO 04/24/25 23:59 500 mg DAILY RODERICK Administration Metaxalone 800 mg 04/21/25 13:00 04/22/25 08:11 Metaxalone 800 Mg Tablet PO 800 mg TID RODERICK Administration Miconazole Nitrate 1 applic 04/20/25 11:00 04/22/25 08:10 Miconazole Nitrate 2% Cream 30 Gm Tube TOPICAL 1 applic Q12HR RODERICK Administration Morphine Sulfate 2 mg 04/17/25 09:53 04/22/25 04:04 Morphine Sulfate (*Crx) 4 Mg/Ml Inj IV PUSH 2 mg Q2H PRN Administration Pain Rated 7-10 Home Med ( 25 mg 04/20/25 21:00 04/21/25 20:56 Exemestane 25 Mg PO 05/20/25 20:59 25 mg Tablet) HS RODERICK Administration Ondansetron HCl 4 mg 04/17/25 09:53 Ondansetron Inj 4 Mg/2 Ml Vial IV PUSH Q4H PRN Nausea Ondansetron HCl 4 mg 04/19/25 12:53 Ondansetron Hcl Odt 4 Mg Tablet PO Q8H PRN Nausea And Vomiting Oxybutynin Chloride 15 mg 04/20/25 09:00 04/22/25 08:10 Oxybutynin Chloride Xl 5 Mg Tab.Er.24 PO 15 mg DAILY RODERICK Administration Prednisone 12.5 mg 04/20/25 09:00 04/22/25 08:11 Prednisone 2.5 Mg Tablet PO 12.5 mg DAILY RODERICK Administration Rivaroxaban 20 mg 04/17/25 17:00 04/21/25 16:34 Rivaroxaban 20 Mg Tablet PO 20 mg DAILY@1700 RODERICK Administration Ropinirole HCl 5 mg 04/17/25 22:50 04/21/25 20:54 Ropinirole Hcl 1 Mg Tablet PO 5 mg HS RODERICK Administration Radiology Results: ITS Impressions Lumbar Spine CT 04/17/25 06:19 IMPRESSION: 1. Moderate lumbar spondylosis, stable from 10/06/2024. Pelvis CT 04/17/25 06:24 IMPRESSION: 1. Moderate osteoarthritis of the hips. 2. 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 3. Osteitis pubis. Hip X-Ray 04/17/25 10:01 Impression: 1: No acute bone or joint abnormality. Labs Labs: Laboratory Results - last 24 hr 04/21/25 04/21/25 04/21/25 11:36 16:44 21:39 POC Capillary Glucose 180 H 231 H 260 H 04/22/25 08:05 POC Capillary Glucose 198 H
[2025-04-22] MEDS: INSULIN ASPART (*BKC) 100 UNITS/ML SUB-Q ×2 (12:00→16:57)
--- NOTE | 2025-04-22 13:36 | WPDINFPN2 ---
Progress Note: A&P Assessment and Plan (1) Acute UTI: Code(s): N39.0 - Urinary tract infection, site not specified Status: Acute (2) Multiple drug allergies: Code(s): Z88.9 - Allergy status to unspecified drugs, medicaments and biological substances Status: Acute Plan # Amp-C E coli UTI. # recurrent UTIs. A # Multiple reported allergies including quinolones but tolerating levofloxacin. Plan: -- continue oral levofloxacin through 04/27/2025. However, decrease dose to 500 mg daily. -- recommend removing levofloxacin from her list of allergies unless she develops a delayed rash. --upon completing levofloxacin would suggest UTI prophylaxis with methenamine 1 g p.o. b.i.d. to continue for 3-6 months with re-evaluation. Subjective Date/time seen: 04/22/25 13:36 Interval history: Afebrile. Status post left hip steroid injection. Review of Systems Review of Systems: All systems reviewed & are unremarkable except as noted in HPI and below Exam Narrative: Awake and alert and nontoxic. No respiratory distress. No significant abdominal distention. No rash. Objective Data Vital Signs Vital Signs: Vital Signs - 24 hr 04/21/25 14:00 04/21/25 20:00 04/21/25 21:41 Temperature 97.6 F 97.6 F Pulse Rate 88 75 Respiratory Rate 16 16 Blood Pressure 145/71 H 144/70 H Pulse Oximetry 94 95 Oxygen Delivery Room Air 04/21/25 22:35 04/22/25 01:29 04/22/25 05:27 Temperature 97.8 F Pulse Rate 77 71 75 Respiratory Rate 17 14 18 Blood Pressure 126/63 Pulse Oximetry 96 96 98 Oxygen Delivery CPAP CPAP 04/22/25 07:54 Temperature Pulse Rate Respiratory Rate 18 Blood Pressure Pulse Oximetry 98 Oxygen Delivery CPAP Intake/Output Intake/Output: Intake & Output 04/19/25 04/20/25 04/21/25 04/22/25 23:59 23:59 23:59 23:59 Intake Total 643 740 2494 880 Output Total 2350 2200 1750 400 Balance -2543 -0977 -330 480 Meds/Results Medications: Active Medications Generic Name Dose Route Start Last Admin Trade Name Freq PRN Reason Stop Dose Admin Acetaminophen 650 mg 04/17/25 09:53 Acetaminophen 325 Mg Tablet PO Q4H PRN Mild Pain (1-3) or Fever Hydrocodone Bitart/Acetaminophen 1 tab 04/17/25 09:53 04/22/25 12:09 Hydrocodone/Acetaminophen (*Crx) 5-325 Mg Tablet PO 1 tab Q4H PRN Administration Pain Rated 4-6 Albuterol 1 puff 04/19/25 12:53 Albuterol Sulfate (*Sp) Aerosol 1 Puff INHALATION QID PRN Shortness Of Breath Or Wheezing Dextrose 12.5 gm 04/17/25 22:50 Dextrose 50% 25 Gm/50 Ml Syringe IV PUSH PRN PRN Hypoglycemia Protocol Diclofenac Sodium 1 applic 04/21/25 13:00 04/22/25 12:03 Diclofenac Sodium 1% 100 Gm Gel (*Bkc) TOPICAL 1 applic QID [facility] Administration Diphenhydramine HCl 25 mg 04/21/25 08:30 04/22/25 07:40 Diphenhydramine Hcl Cap 25 Mg Capsule PO 25 mg Q8H [facility] Administration Furosemide 20 mg 04/18/25 09:00 04/22/25 08:11 Furosemide 20 Mg Tablet PO 20 mg DAILY [facility] Administration Gabapentin 300 mg 04/19/25 13:00 04/22/25 12:05 Gabapentin 300 Mg Capsule PO 300 mg TID [facility] Administration Glucagon 1 mg 04/17/25 22:50 Glucagon For Inj 1 Mg Vial IM PRN PRN Hypoglycemia Protocol Glucose 15 gm 04/17/25 22:50 Glucose Oral Gel 15 Gm Of Glucse In 37.5 Gm Tube PO PRN PRN Hypoglycemia Protocol Dextrose 1,000 mls @ 100 mls/hr 04/17/25 22:50 Dextrose 5% 1,000 Ml IVPB PRN PRN Hypoglycemia Protocol Insulin Aspart 4 - 8 units 04/18/25 08:00 04/22/25 12:00 Insulin Aspart (*Bkc) 100 Units/Ml SUB-Q 6 units TIDWM [facility] Administration Protocol Insulin Aspart 23 units 04/18/25 08:00 04/22/25 11:59 Insulin Aspart (*Bkc) 100 Units/Ml SUB-Q 23 units TIDWM [facility] Administration Insulin Glargine 32 units 04/18/25 09:00 04/22/25 08:17 Insulin Glargine (*Bkc) 100 Units/Ml SUB-Q 32 units QAM [facility] Administration Levofloxacin 500 mg 04/22/25 09:00 04/22/25 08:10 Levofloxacin 500 Mg Tablet PO 04/24/25 23:59 500 mg DAILY [facility] Administration Metaxalone 800 mg 04/21/25 13:00 04/22/25 12:05 Metaxalone 800 Mg Tablet PO 800 mg TID [facility] Administration Miconazole Nitrate 1 applic 04/20/25 11:00 04/22/25 08:10 Miconazole Nitrate 2% Cream 30 Gm Tube TOPICAL 1 applic Q12HR [facility] Administration Morphine Sulfate 2 mg 04/17/25 09:53 04/22/25 04:04 Morphine Sulfate (*Crx) 4 Mg/Ml Inj IV PUSH 2 mg Q2H PRN Administration Pain Rated 7-10 Home Med ( 25 mg 04/20/25 21:00 04/21/25 20:56 Exemestane 25 Mg PO 05/20/25 20:59 25 mg Tablet) HS [facility] Administration Ondansetron HCl 4 mg 04/17/25 09:53 Ondansetron Inj 4 Mg/2 Ml Vial IV PUSH Q4H PRN Nausea Ondansetron HCl 4 mg 04/19/25 12:53 Ondansetron Hcl Odt 4 Mg Tablet PO Q8H PRN Nausea And Vomiting Oxybutynin Chloride 15 mg 04/20/25 09:00 04/22/25 08:10 Oxybutynin Chloride Xl 5 Mg Tab.Er.24 PO 15 mg DAILY [facility] Administration Prednisone 12.5 mg 04/20/25 09:00 04/22/25 08:11 Prednisone 2.5 Mg Tablet PO 12.5 mg DAILY [facility] Administration Rivaroxaban 20 mg 04/17/25 17:00 04/21/25 16:34 Rivaroxaban 20 Mg Tablet PO 20 mg DAILY@1700 [facility] Administration Ropinirole HCl 5 mg 04/17/25 22:50 04/21/25 20:54 Ropinirole Hcl 1 Mg Tablet PO 5 mg HS [facility] Administration Radiology Results: ITS Impressions Lumbar Spine CT 04/17/25 06:19 IMPRESSION: 1. Moderate lumbar spondylosis, stable from 10/06/2024. Pelvis CT 04/17/25 06:24 IMPRESSION: 1. Moderate osteoarthritis of the hips. 2. 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 3. Osteitis pubis. Hip X-Ray 04/17/25 10:01 Impression: 1: No acute bone or joint abnormality. Labs Labs: Laboratory Results - last 24 hr 04/21/25 04/21/25 04/22/25 16:44 21:39 08:05 POC Capillary Glucose 231 H 260 H 198 H 04/22/25 11:45 POC Capillary Glucose 312 H
[2025-04-22 14:00] VITALS: BP 107/71; PULSE 79; RESP 16; TEMP 36; O2SAT 94
[2025-04-22] MEDS: RIVAROXABAN 20 MG TABLET PO (16:37)
[2025-04-22 21:10] VITALS: BP 118/63; PULSE 83; RESP 18; TEMP 36.2; O2SAT 95
[2025-04-22] MEDS: LIDOCAINE 2% VISC SOLN 30 ML, ALUMINUM/MAGNESIUM/SIMETH SUSP 30 ML, diphenhydrAMINE HCl... PO (22:45)
[2025-04-23] MEDS: diphenhydrAMINE HCl CAP 25 MG CAPSULE PO ×3 (00:34→17:09)
[2025-04-23] MEDS: MORPHINE SULFATE (*CRX) 4 MG/ML INJ 2 MG IV PUSH (02:45)
[2025-04-23 06:00] VITALS: BP 121/76; PULSE 89; RESP 14; TEMP 36.4; O2SAT 97
--- NOTE | 2025-04-23 08:06 | P.PNOP_ITS ---
Progress Note: A&P Assessment and Plan (1) Trochanteric bursitis of left hip: Code(s): M70.62 - Trochanteric bursitis, left hip Status: Acute (2) Morbid obesity with BMI of 50.0-59.9, adult: Code(s): E66.01 - Morbid (severe) obesity due to excess calories; Z68.43 - Body mass index [BMI] 50.0-59.9, adult Status: Acute Plan Trochanteric bursitis with likely abductor muscle tear could explain the exquisite acute nature of the symptoms. After further discussion she states she was doing a lot of cleaning and cooking to prepare for her family coming over for [place]. Reduction in pain after the injection. She understands it can take up to a week for the full effect. She is using a walker. Wean to a cane when ready. She may benefit from outpatient formal physical therapy. She may follow up as needed in the office. Time Spent With Patient Time with patient: less than 15 minutes Subjective Subjective Date/Time Seen: 04/23/25 08:06 Interval history: Patient resting comfortably in a chair. She notes improvement in pain. She has been able to get up with therapy and shower. She notes she has some discomfort still but it is much better. Review of Systems Review of Systems: All systems reviewed & are unremarkable except as noted in HPI and below Exam Narrative: Exam: Pleasant morbidly obese (BMI 54.2) 69 y/o female. A&O x3. No acute distress. No clinical deformity. I did not watch her walk. Negative Stinchfield sign. Moderate tenderness at the greater trochanter and hip abductors. Gentle hip motion well tolerated flexion 100? internal rotation 20? external rotation 40?. No distal edema. Anterior tibialis 5/5, extensor hallucis longus 5/5. No rash or lesions. No mass or swelling. No distal edema. Light touch sensation intact. Dorsalis pedis pulse normal. Objective Data Vital Signs Vital Signs: Vital Signs - 24 hr 04/22/25 14:00 04/22/25 14:46 04/22/25 20:44 Temperature 96.8 F L Pulse Rate 79 Respiratory Rate 16 Blood Pressure 107/71 Pulse Oximetry 94 Oxygen Delivery Room Air Room Air 04/22/25 21:10 04/23/25 06:00 Temperature 97.2 F L 97.5 F L Pulse Rate 83 89 Respiratory Rate 18 14 Blood Pressure 118/63 121/76 Pulse Oximetry 95 97 Oxygen Delivery Intake/Output Intake/Output: Intake & Output 04/20/25 04/21/25 04/22/25 04/23/25 23:59 23:59 23:59 23:59 Intake Total 923 1420 1360 660 Output Total 2200 1750 1050 400 Balance -1277 -330 310 260 Meds/Results Medications: Active Medications Generic Name Dose Route Start Last Admin Trade Name Freq PRN Reason Stop Dose Admin Acetaminophen 650 mg 04/17/25 09:53 Acetaminophen 325 Mg Tablet PO Q4H PRN Mild Pain (1-3) or Fever Hydrocodone Bitart/Acetaminophen 1 tab 04/17/25 09:53 04/22/25 16:40 Hydrocodone/Acetaminophen (*Crx) 5-325 Mg Tablet PO 1 tab Q4H PRN Administration Pain Rated 4-6 Albuterol 1 puff 04/19/25 12:53 Albuterol Sulfate (*Sp) Aerosol 1 Puff INHALATION QID PRN Shortness Of Breath Or Wheezing Lidocaine HCl 30 ml/ Al Hydrox 0 ml 04/22/25 21:05 04/22/25 22:45 /Mg Hydrox/Simethicone 30 ml/ PO 5 ml Diphenhydramine HCl 75 mg Q3HR PRN Administration Cold Sores Dextrose 12.5 gm 04/17/25 22:50 Dextrose 50% 25 Gm/50 Ml Syringe IV PUSH PRN PRN Hypoglycemia Protocol Diclofenac Sodium 1 applic 04/21/25 13:00 04/22/25 20:56 Diclofenac Sodium 1% 100 Gm Gel (*Bkc) TOPICAL 1 applic QID [facility] Administration Diphenhydramine HCl 25 mg 04/21/25 08:30 04/23/25 00:34 Diphenhydramine Hcl Cap 25 Mg Capsule PO 25 mg Q8H [facility] Administration Furosemide 20 mg 04/18/25 09:00 04/22/25 08:11 Furosemide 20 Mg Tablet PO 20 mg DAILY [facility] Administration Gabapentin 300 mg 04/19/25 13:00 04/22/25 16:36 Gabapentin 300 Mg Capsule PO 300 mg TID [facility] Administration Glucagon 1 mg 04/17/25 22:50 Glucagon For Inj 1 Mg Vial IM PRN PRN Hypoglycemia Protocol Glucose 15 gm 04/17/25 22:50 Glucose Oral Gel 15 Gm Of Glucse In 37.5 Gm Tube PO PRN PRN Hypoglycemia Protocol Dextrose 1,000 mls @ 100 mls/hr 04/17/25 22:50 Dextrose 5% 1,000 Ml IVPB PRN PRN Hypoglycemia Protocol Insulin Aspart 4 - 8 units 04/18/25 08:00 04/22/25 16:57 Insulin Aspart (*Bkc) 100 Units/Ml SUB-Q 4 units TIDWM [facility] Administration Protocol Insulin Aspart 23 units 04/18/25 08:00 04/22/25 16:56 Insulin Aspart (*Bkc) 100 Units/Ml SUB-Q 23 units TIDWM [facility] Administration Insulin Glargine 32 units 04/18/25 09:00 04/22/25 08:17 Insulin Glargine (*Bkc) 100 Units/Ml SUB-Q 32 units QAM [facility] Administration Levofloxacin 500 mg 04/22/25 09:00 04/22/25 08:10 Levofloxacin 500 Mg Tablet PO 04/24/25 23:59 500 mg DAILY [facility] Administration Metaxalone 800 mg 04/21/25 13:00 04/22/25 16:36 Metaxalone 800 Mg Tablet PO 800 mg TID [facility] Administration Miconazole Nitrate 1 applic 04/20/25 11:00 04/22/25 20:56 Miconazole Nitrate 2% Cream 30 Gm Tube TOPICAL 1 applic Q12HR [facility] Administration Morphine Sulfate 2 mg 04/17/25 09:53 04/23/25 02:45 Morphine Sulfate (*Crx) 4 Mg/Ml Inj IV PUSH 2 mg Q2H PRN Administration Pain Rated 7-10 Home Med ( 25 mg 04/20/25 21:00 04/22/25 20:53 Exemestane 25 Mg PO 05/20/25 20:59 25 mg Tablet) HS [facility] Administration Ondansetron HCl 4 mg 04/17/25 09:53 Ondansetron Inj 4 Mg/2 Ml Vial IV PUSH Q4H PRN Nausea Ondansetron HCl 4 mg 04/19/25 12:53 Ondansetron Hcl Odt 4 Mg Tablet PO Q8H PRN Nausea And Vomiting Oxybutynin Chloride 15 mg 04/20/25 09:00 04/22/25 08:10 Oxybutynin Chloride Xl 5 Mg Tab.Er.24 PO 15 mg DAILY [facility] Administration Prednisone 12.5 mg 04/20/25 09:00 04/22/25 08:11 Prednisone 2.5 Mg Tablet PO 12.5 mg DAILY [facility] Administration Rivaroxaban 20 mg 04/17/25 17:00 04/22/25 16:37 Rivaroxaban 20 Mg Tablet PO 20 mg DAILY@1700 [facility] Administration Ropinirole HCl 5 mg 04/17/25 22:50 04/22/25 20:51 Ropinirole Hcl 1 Mg Tablet PO 5 mg HS [facility] Administration Radiology Results: ITS Impressions Lumbar Spine CT 04/17/25 06:19 IMPRESSION: 1. Moderate lumbar spondylosis, stable from 10/06/2024. Pelvis CT 04/17/25 06:24 IMPRESSION: 1. Moderate osteoarthritis of the hips. 2. 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 3. Osteitis pubis. Hip X-Ray 04/17/25 10:01 Impression: 1: No acute bone or joint abnormality. Labs Labs: Laboratory Results - last 24 hr 04/22/25 04/22/25 04/22/25 08:05 11:45 16:37 POC Capillary Glucose 198 H 312 H 205 H 04/22/25 04/23/25 21:03 07:41 POC Capillary Glucose 250 H 215 H
--- NOTE | 2025-04-23 08:08 | PM.IMPN2 ---
Assessment and Plan Assessment and Plan (1) Acute UTI: Code(s): N39.0 - Urinary tract infection, site not specified Status: Acute Assessment and Plan: Urine culture and IV gentamicin due to multiple drug allergies Became short of breath and HE with gentamicin. Will stop that Discussed other option started on aztreonam which she is tolerating well. She had tolerated this in the past Urine culture comes back with E coli. Only oral option as levofloxacin. Switch to oral levofloxacin and tolerating well. Levofloxacin until 04/27/2025 per ID recommendations (2) Essential hypertension: Code(s): I10 - Essential (primary) hypertension Status: Acute Assessment and Plan: Stable on current medications, will continue current treatment. (3) Insulin dependent diabetes mellitus: Status: Acute Assessment and Plan: Stable on current medication, will continue current treatment. (4) Chronic anticoagulation: Code(s): Z79.01 - half-way (current) use of anticoagulants Status: Acute Assessment and Plan: Continue current treatment monitor closely. (5) Osteoarthritis: Code(s): M19.90 - Unspecified osteoarthritis, unspecified site Status: Inactive Assessment and Plan: Continue pain medications. Start physical therapy stable. Left hip pain. Ongoing Can not get MRI due to spinal stimulator place. Will add muscle relaxant. Diclofenac gel locally. Orthopedic consultation. Seems to have trochanteric bursitis. Status post steroid injection by Orthopedics. Continue PT OT and mobilization. Follow up with Orthopedics as an outpatient basis. 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 Perineal rash will treat with nystatin. DVT prophylaxis Xarelto Code status full. Subjective Date/time seen: 04/23/25 08:08 Interval history: No overnight events. Left ear feels better. Walked with therapy yesterday. No other complaints Review of Systems Review of Systems: All systems reviewed & are unremarkable except as noted in HPI and below Exam Narrative: GENERAL: Well-appearing, well-nourished, and in no acute distress. HEAD: Normocephalic, atraumatic. EYES: PERRLA and EOMI. ENT: Nares clear, no rhinorrhea or epistaxis. Mucous membranes moist. NECK: Supple. CHEST: Clear to auscultation. No respiratory distress. HEART: Regular rate and rhythm. No murmur heard. Normal peripheral pulses. ABDOMEN: Soft, Nontender, nondistended, normal active bowel sounds. EXTREMITIES: Normal range of motion tenderness to palpation the left hip area and lumbar region. No edema. SKIN: Warm, dry, no rash. NEURO: No focal deficits. Alert and oriented x3. PSYCH: Normal mood and affect. Objective Data Vital Signs Vital Signs: Vital Signs - 24 hr 04/22/25 14:00 04/22/25 14:46 04/22/25 20:44 Temperature 96.8 F L Pulse Rate 79 Respiratory Rate 16 Blood Pressure 107/71 Pulse Oximetry 94 Oxygen Delivery Room Air Room Air 04/22/25 21:10 04/23/25 06:00 Temperature 97.2 F L 97.5 F L Pulse Rate 83 89 Respiratory Rate 18 14 Blood Pressure 118/63 121/76 Pulse Oximetry 95 97 Oxygen Delivery Intake/Output Intake/Output: Intake & Output 04/20/25 04/21/25 04/22/25 04/23/25 23:59 23:59 23:59 23:59 Intake Total 923 1420 1360 660 Output Total 2200 1750 1050 400 Balance -1277 -330 310 260 Meds/Results Medications: Active Medications Generic Name Dose Route Start Last Admin Trade Name Freq PRN Reason Stop Dose Admin Acetaminophen 650 mg 04/17/25 09:53 Acetaminophen 325 Mg Tablet PO Q4H PRN Mild Pain (1-3) or Fever Hydrocodone Bitart/Acetaminophen 1 tab 04/17/25 09:53 04/22/25 16:40 Hydrocodone/Acetaminophen (*Crx) 5-325 Mg Tablet PO 1 tab Q4H PRN Administration Pain Rated 4-6 Albuterol 1 puff 04/19/25 12:53 Albuterol Sulfate (*Sp) Aerosol 1 Puff INHALATION QID PRN Shortness Of Breath Or Wheezing Lidocaine HCl 30 ml/ Al Hydrox 0 ml 04/22/25 21:05 04/22/25 22:45 /Mg Hydrox/Simethicone 30 ml/ PO 5 ml Diphenhydramine HCl 75 mg Q3HR PRN Administration Cold Sores Dextrose 12.5 gm 04/17/25 22:50 Dextrose 50% 25 Gm/50 Ml Syringe IV PUSH PRN PRN Hypoglycemia Protocol Diclofenac Sodium 1 applic 04/21/25 13:00 04/22/25 20:56 Diclofenac Sodium 1% 100 Gm Gel (*Bkc) TOPICAL 1 applic QID [facility] Administration Diphenhydramine HCl 25 mg 04/21/25 08:30 04/23/25 00:34 Diphenhydramine Hcl Cap 25 Mg Capsule PO 25 mg Q8H [facility] Administration Furosemide 20 mg 04/18/25 09:00 04/22/25 08:11 Furosemide 20 Mg Tablet PO 20 mg DAILY [facility] Administration Gabapentin 300 mg 04/19/25 13:00 04/22/25 16:36 Gabapentin 300 Mg Capsule PO 300 mg TID [facility] Administration Glucagon 1 mg 04/17/25 22:50 Glucagon For Inj 1 Mg Vial IM PRN PRN Hypoglycemia Protocol Glucose 15 gm 04/17/25 22:50 Glucose Oral Gel 15 Gm Of Glucse In 37.5 Gm Tube PO PRN PRN Hypoglycemia Protocol Dextrose 1,000 mls @ 100 mls/hr 04/17/25 22:50 Dextrose 5% 1,000 Ml IVPB PRN PRN Hypoglycemia Protocol Insulin Aspart 4 - 8 units 04/18/25 08:00 04/22/25 16:57 Insulin Aspart (*Bkc) 100 Units/Ml SUB-Q 4 units TIDWM [facility] Administration Protocol Insulin Aspart 23 units 04/18/25 08:00 04/22/25 16:56 Insulin Aspart (*Bkc) 100 Units/Ml SUB-Q 23 units TIDWM [facility] Administration Insulin Glargine 32 units 04/18/25 09:00 04/22/25 08:17 Insulin Glargine (*Bkc) 100 Units/Ml SUB-Q 32 units QAM [facility] Administration Levofloxacin 500 mg 04/22/25 09:00 04/22/25 08:10 Levofloxacin 500 Mg Tablet PO 04/24/25 23:59 500 mg DAILY [facility] Administration Metaxalone 800 mg 04/21/25 13:00 04/22/25 16:36 Metaxalone 800 Mg Tablet PO 800 mg TID [facility] Administration Miconazole Nitrate 1 applic 04/20/25 11:00 04/22/25 20:56 Miconazole Nitrate 2% Cream 30 Gm Tube TOPICAL 1 applic Q12HR [facility] Administration Morphine Sulfate 2 mg 04/17/25 09:53 04/23/25 02:45 Morphine Sulfate (*Crx) 4 Mg/Ml Inj IV PUSH 2 mg Q2H PRN Administration Pain Rated 7-10 Home Med ( 25 mg 04/20/25 21:00 04/22/25 20:53 Exemestane 25 Mg PO 05/20/25 20:59 25 mg Tablet) HS [facility] Administration Ondansetron HCl 4 mg 04/17/25 09:53 Ondansetron Inj 4 Mg/2 Ml Vial IV PUSH Q4H PRN Nausea Ondansetron HCl 4 mg 04/19/25 12:53 Ondansetron Hcl Odt 4 Mg Tablet PO Q8H PRN Nausea And Vomiting Oxybutynin Chloride 15 mg 04/20/25 09:00 04/22/25 08:10 Oxybutynin Chloride Xl 5 Mg Tab.Er.24 PO 15 mg DAILY [facility] Administration Prednisone 12.5 mg 04/20/25 09:00 04/22/25 08:11 Prednisone 2.5 Mg Tablet PO 12.5 mg DAILY [facility] Administration Rivaroxaban 20 mg 04/17/25 17:00 04/22/25 16:37 Rivaroxaban 20 Mg Tablet PO 20 mg DAILY@1700 [facility] Administration Ropinirole HCl 5 mg 04/17/25 22:50 04/22/25 20:51 Ropinirole Hcl 1 Mg Tablet PO 5 mg HS [facility] Administration Radiology Results: ITS Impressions Lumbar Spine CT 04/17/25 06:19 IMPRESSION: 1. Moderate lumbar spondylosis, stable from 10/06/2024. Pelvis CT 04/17/25 06:24 IMPRESSION: 1. Moderate osteoarthritis of the hips. 2. 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 3. Osteitis pubis. Hip X-Ray 04/17/25 10:01 Impression: 1: No acute bone or joint abnormality. Labs Labs: Laboratory Results - last 24 hr 04/22/25 04/22/25 04/22/25 08:05 11:45 16:37 POC Capillary Glucose 198 H 312 H 205 H 04/22/25 04/23/25 21:03 07:41 POC Capillary Glucose 250 H 215 H
--- NOTE | 2025-04-23 08:09 | PM.DS ---
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 Will stop that Discussed other option started on aztreonam which she is tolerating well. She had tolerated this in the past Urine culture comes back with E coli. Only oral option as levofloxacin. Switch to oral levofloxacin and tolerating well. Levofloxacin until 04/27/2025 per ID recommendations # Essential hypertension: Delete Stable on current medications, will continue current treatment. # Insulin dependent diabetes mellitus: Stable on current medication, will continue current treatment. # Chronic anticoagulation: Continue current treatment monitor closely. # Osteoarthritis: Continue pain medications. Start physical therapy stable. Left hip pain. Ongoing Can not get MRI due to spinal stimulator place. Will add muscle relaxant. Diclofenac gel locally. Orthopedic consultation. Seems to have trochanteric bursitis. Status post steroid injection by Orthopedics. Continue PT OT and mobilization. Follow up with Orthopedics as an outpatient basis. # History of polymyalgia rheumatica on prednisone 12.5 mg daily per regulatory law specialist which is continued. # Perineal rash treated with nystatin resolved # DVT prophylaxis Xarelto # Code status full. Time Spent with Patient Time attestation: Total time spent providing and/or coordinating discharge services: 35 minutes Exam Narrative: GENERAL: Well-appearing, well-nourished, and in no acute distress. HEAD: Normocephalic, atraumatic. EYES: PERRLA and EOMI. ENT: Nares clear, no rhinorrhea or epistaxis. Mucous membranes moist. NECK: Supple. CHEST: Clear to auscultation. No respiratory distress. HEART: Regular rate and rhythm. No murmur heard. Normal peripheral pulses. ABDOMEN: Soft, Nontender, nondistended, normal active bowel sounds. EXTREMITIES: Normal range of motion tenderness to palpation the left hip area and lumbar region. No edema. SKIN: Warm, dry, no rash. NEURO: No focal deficits. Alert and oriented x3. PSYCH: Normal mood and affect. DS: Data Data Completed and Pending Labs on day of discharge: Labs from last 24 hours 04/23/25 04/22/25 04/22/25 07:41 21:03 16:37 POC Capillary Glucose 215 H 250 H 205 H 04/22/25 04/22/25 11:45 08:05 POC Capillary Glucose 312 H 198 H Imaging Radiologist's impression: ITS Impressions Lumbar Spine CT 04/17/25 06:19 IMPRESSION: 1. Moderate lumbar spondylosis, stable from 10/06/2024. Pelvis CT 04/17/25 06:24 IMPRESSION: 1. Moderate osteoarthritis of the hips. 2. 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 3. Osteitis pubis. Hip X-Ray 04/17/25 10:01 Impression: 1: No acute bone or joint abnormality. Discharge Plan Discharge Attending physician on discharge: Michael Goldstein Consulting providers: Betty Ye; Colten Mclean Discharging Clinician: Michael Goldstein Anticipated Discharge Date/Time: 04/23/25 08:11 Patient Disposition: Home Activity: as tolerated Diet: heart healthy Patient Instructions: Antibiotic Form, Rivaroxaban (By mouth), Heart Failure (DC) Patient Language: Ivorian Stand Alone Forms: General Discharge Information Follow-up/Referrals: Shahla,Justen Spicer MD [Primary Care Provider] - 1 Week Colten Mclean MD [Physician, Orthopedics] - 4 Weeks Discharge Medications: New diclofenac sodium [Solaraze] 3 % gel 1 applic topical BID Qty: 100 0RF diphenhydramine HCl 25 mg Capsule 25 mg PO Q8H PRN (Reason: allergic reaction) Qty: 20 0RF levofloxacin 500 mg Tablet 500 mg PO DAILY Qty: 4 0RF metaxalone 800 mg tablet 800 mg PO TID PRN (Reason: muscle pain) Qty: 30 0RF Continued gabapentin 300 mg capsule 300 mg PO TID exemestane 25 mg tablet 25 mg PO HS ropinirole 5 mg tablet 5 mg PO HS insulin glargine [Lantus Solostar U-100 Insulin] 100 unit/mL (3 mL) insulin pen 40 unit SUBCUT QAM insulin lispro [Humalog KwikPen Insulin] 100 unit/mL insulin pen 28 unit SUBCUT TID Patient Comments: PATIENT EXPERIENCES LOW BLOOD SUGAR IN THE HOSPITAL Patient takes additional depending on what blood sugar is albuterol sulfate 90 mcg/actuation HFA aerosol inhaler 1 inh inhalation QID PRN (Reason: shortness of breath or wheezing) Qty: 6.7 0RF oxybutynin chloride 15 mg tablet extended release 24hr 15 mg PO DAILY ondansetron 4 mg tablet,disintegrating 4 mg PO Q8H PRN (Reason: nausea and vomiting) Qty: 10 0RF lidocaine 5 % ointment 1 applic topical TID PRN (Reason: skin irritation) Qty: 50 0RF prednisone 10 mg tablet 12.5 mg PO DAILY Xarelto 20 mg tablet 20 mg PO DAILY hydrocodone-acetaminophen 10-325 mg tablet 1 tablet PO Q6H PRN (Reason: pain (scale score 7-10)) 5 Days Qty: 10 0RF furosemide [Lasix] 20 mg tablet 20 mg PO DAILY Qty: 30 0RF Discontinued oxybutynin chloride 10 mg tablet extended release 24hr 10 mg PO DAILY tamsulosin 0.4 mg capsule 0.4 mg PO DAILY pantoprazole [Protonix] 40 mg tablet,delayed release (DR/EC) 40 mg PO BID 30 Days Qty: 60 0RF Date of admission: 04/19/25 17:31 Primary Care Provider: Shahla,Justen Spicer Admitting Provider: Tunde Rivera Attending physician on admission: Tunde Rivera Condition: Stable
[2025-04-23] MEDS: GABAPENTIN 300 MG CAPSULE PO ×3 (09:10→17:09)
[2025-04-23] MEDS: FUROSEMIDE 20 MG TABLET PO (09:10)
[2025-04-23] MEDS: HYDROcodone/acetaminophen (*CRX) 5-325 MG TABLET 1 TAB PO ×2 (09:10→13:13)
[2025-04-23] MEDS: oxyBUTYnin CHLORIDE XL 5 MG TAB.ER.24 15 MG PO (09:11)
[2025-04-23] MEDS: METAXALONE 800 MG TABLET PO ×3 (09:11→17:09)
[2025-04-23] MEDS: INSULIN ASPART (*BKC) 100 UNITS/ML SUB-Q ×2 (09:12→12:16)
[2025-04-23] MEDS: INSULIN ASPART (*BKC) 100 UNITS/ML 23 UNITS SUB-Q ×3 (09:12→17:10)
[2025-04-23] MEDS: INSULIN GLARGINE (*BKC) 100 UNITS/ML 32 UNITS SUB-Q (09:13)
[2025-04-23] MEDS: MICONAZOLE NITRATE 2% CREAM 30 GM TUBE 1 APPLIC TOPICAL (09:19)
[2025-04-23] MEDS: DICLOFENAC SODIUM 1% 100 GM GEL (*BKC) 1 APPLIC TOPICAL ×2 (09:20→12:17)
[2025-04-23 13:55] VITALS: BP 141/68; PULSE 82; RESP 16; TEMP 36.5; O2SAT 97
[2025-04-23] MEDS: RIVAROXABAN 20 MG TABLET PO (17:09)
== END 2025-04-23 17:50 | disposition home or self-care (01) | DRG 690 ==
LOC: ANHED 04-17 10:00 → ANH3MEDSUR 04-17 10:38 → ANH2MED 04-17 11:07
PROVIDERS: Emergency Medicine; Admitting Provider Internal Medicine; Emergency Provider Emergency Medicine; PCP Internal Medicine; Visit Provider Internal Medicine
DX: N39.0 Urinary tract infection, site not specified (principal); Z68.43 Body mass index [BMI] 50.0-59.9, adult; B96.20 Unspecified Escherichia coli [E. coli] as the cause of diseases classified elsewhere; E11.42 Type 2 diabetes mellitus with diabetic polyneuropathy; M19.90 Unspecified osteoarthritis, unspecified site; E66.01 Morbid (severe) obesity due to excess calories; M70.62 Trochanteric bursitis, left hip; R21 Rash and other nonspecific skin eruption; G25.81 Restless legs syndrome; I11.0 Hypertensive heart disease with heart failure; I50.9 Heart failure, unspecified; M35.3 Polymyalgia rheumatica; G47.33 Obstructive sleep apnea (adult) (pediatric); Z96.651 Presence of right artificial knee joint; Z79.01 Long term (current) use of anticoagulants; Z86.711 Personal history of pulmonary embolism; Z86.718 Personal history of other venous thrombosis and embolism; Z85.3 Personal history of malignant neoplasm of breast; Z90.49 Acquired absence of other specified parts of digestive tract
CPT/HCPCS: 36415; 72131; 72192; 73502; 80053; 80170; 81001; 82565; 82948; 83735; 85025; 85652; 86140; 87086; 87186; 96365; 96366; 96367; 96375; 96376; 97110; 97116; 97161; 97166; 99285; A9270; G0378; J0457; J1010; J1200; J1580; J1815; J2270; J3475